=== PATIENT | male | born 1980 | race African-American/Black ===

== ENCOUNTER 2017-10-24 01:03 | Emergency (ER) | payer MEDICARE, SELFPAY ==
[2017-10-24 01:04] VITALS: BP 153/118; PULSE 83; RESP 19; TEMP 37.2; BMI 44.1
--- NOTE | 2017-10-24 01:17 | ED.DCSUM_ITS ---
- ER Visit Summary Date of Service: 10/24/17 Chief Complaint: [] Left knee pain History of Present Illness: The patient is a 37 M [] complaining of left knee pain after walking up several steps at [employer]. Reports on the last step he felt his knee darek slightly resulting in some discomfort. Denies any significant injury or fall. Reports mild relief with Aleve. No other complaints at this time. Physical Examination: [] Mild discomfort to the left knee with range of motion testing. No swelling, deformity, warmth. Remainder of exam is unremarkable. Test Results: [] None. Emergency Department Course and Treatment: [] I did not feel the patient warranted any diagnostic imaging or testing at this time. He was provided an Wenceslao bandage to the left knee and naproxen orally in the emergency department for analgesia. He was provided a prescription for naproxen with instructions to follow-up with his primary care physician. Treatment Plan: [] Discharge to follow-up with PCP. Prescription for naproxen provided. Disposition: [] Discharge, stable. Impression: [] Left knee sprain This note was generated with [employer] dictation software. It may contain incorrect words, spelling, and punctuation that were not noted in review of the chart prior to signing ED Disposition - Plan for ED Patient: Chief Complaint: Lower Extremity Injury Referrals: Pawel Banda MD [Primary Care Provider] -
--- NOTE | 2017-10-24 01:17 | ED.DEP ---
ED Disposition - Plan for ED Patient: Disposition: Home or Assisted Living Chief Complaint: Lower Extremity Injury Instructions: ED Sprain Knee Prescriptions: Naproxen [Naprosyn] 500 mg PO BID PRN PRN #20 tab PRN Reason: Pain Referrals: Pawel Banda MD [Primary Care Provider] -
[2017-10-24] MEDS: Naproxen 500 MG Tablet PO (01:31)
[2017-10-24 01:32] VITALS: BP 117/82; PULSE 101; PULSE 90; RESP 16; O2SAT 100
--- NOTE | 2017-10-24 01:43 | ED.RN ---
patient refused bernardo wrap at this time
== END 2017-10-24 01:35 | disposition home or self-care (01) ==
LOC: ED 01:28
PROVIDERS: Emergency Provider Emergency Medicine; Family Provider Internal Medicine; PCP Internal Medicine
DX: S83.92XA Sprain of unspecified site of left knee, initial encounter (principal); E66.9 Obesity, unspecified; X58.XXXA Exposure to other specified factors, initial encounter; Y93.01 Activity, walking, marching and hiking; Y92.22 Religious institution as the place of occurrence of the external cause; Y99.8 Other external cause status
CPT/HCPCS: 99283

== ENCOUNTER → 2017-11-01 07:01 | Outpatient (CLI) | payer MEDICARE, SELFPAY ==
--- NOTE | 2017-11-01 07:07 | CT_ITS ---
STUDY: CT ABDOMEN AND PELVIS WITH AND WITHOUT CONTRAST REASON FOR EXAM: Male, 37 years old. Gross hematuria for few months. History of renal failure and hypertension. RADIATION DOSAGE (If Supplied By Facility): CTDIvol = ( 20.55 ) mGy, DLP = ( 3766.71 ) mGycm TECHNIQUE: Transaxial images were obtained from the dome of the diaphragm to the symphysis pubis without oral contrast. 75CC ml of Isovue 300 contrast was administered. Sagittal and coronal images were reconstructed. Individualized dose optimization techniques were used for this CT. COMPARISON: 03/06/2017. FINDINGS: The visualized portions of lung bases demonstrate again pleural-based nodular density in the left lung base measuring about 8 mm unchanged since prior exam. The visualized portions of the heart are within normal limits. The examination is limited due to artifacts. No focal lesion is identified in the liver. Normal gallbladder and extrahepatic biliary system. Normal spleen. Normal pancreas. Normal bilateral adrenal glands. Significant motion artifacts are seen indicating images of the upper abdomen and kidneys. There again is a cortical cyst in the right kidney unchanged since prior exam. Smaller cysts are also seen. There are some small low-density lesion/cyst in the left kidney unchanged since prior exam poorly visualized on this examination due to artifacts. Both kidneys are somewhat atrophic. There is no evidence of hydronephrosis. Normal visualized stomach. The small bowel loops are normal in caliber. There is fecal retention. The appendix is visualized and appears normal. Normal abdominal aorta. Normal inferior vena cava. Again are few retroperitoneal nodes unchanged since the prior examination. The urinary bladder is not well-distended and suboptimally evaluated. There are calcifications of the vas deferens. Varicose veins in the subcutaneous fat of the anterior abdominal wall are again seen. The bony structures are essentially unchanged since prior exam. Expansile lytic lesion in the spinous processes of L4 is again seen. There again are erosive changes of the sacroiliac joints bilaterally increased density of the ileum bilaterally. There again is extensive calcification and pedunculated bony mass arising from the right pubic bone extending to the adjacent soft tissues and into the right groin region increased in size since previous examination measuring now about 12 x 12 x 7 cm. There is levoscoliosis of the lumbar spine. CT/CT Abd/Pelvis W/WO Contrast IMPRESSION: Limited examination due to artifacts and motion. Atrophic kidneys with multiple low-density lesions as cysts unchanged as prior examination. Suboptimal distention of the bladder. No demonstrated acute process. 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 Low-grade malignancy is less likely due to long-standing of the lesion but cannot be entirely excluded. Electronically Signed: Sunday Paulino MD at 10:45 EST Tel , Service support ,
== END ==
PROVIDERS: Family Provider Internal Medicine; PCP Internal Medicine; Visit Provider Urology
DX: R31.0 Gross hematuria (principal)
CPT/HCPCS: 74178; Q9967; A4216

== ENCOUNTER 2018-01-08 21:00 | Emergency (ER) | payer MEDICARE, MEDICAID, SELFPAY ==
[2018-01-08 21:01] VITALS: BP 139/95; PULSE 103; RESP 18; TEMP 37.5; O2SAT 95; BMI 43.2
--- NOTE | 2018-01-08 22:10 | CT_ITS ---
STUDY: CT BRAIN WITHOUT CONTRAST REASON FOR EXAM: Male, 37 years old. Headache RADIATION DOSAGE (If Supplied By Facility): CTDIvol = ( 44.99 ) mGy, DLP = ( 846.73 ) mGycm TECHNIQUE: Transaxial CT imaging of the brain was performed without administration of intravenous contrast material. Individualized dose optimization techniques were used for this CT. COMPARISON: April 02, 2016 FINDINGS: Normal soft tissue structures. Normal calvarium. Mild nonspecific cortical atrophy for stated age. Normal white matter tracts of the cerebral hemispheres. Normal basal ganglia and thalami. Normal brainstem. Normal cerebellum. Expansile appearance to sella turcica demonstrating low attenuation consistent with empty sella deformity There is no intracranial hemorrhage. There are no findings of an acute ischemic infarction. There appears to be mild orbital proptosis. Clinical correlation recommended There is polypoid mucosal thickening in the maxillary sinuses and moderate mucosal thickening within left sphenoid sinus CT/Brain/Head without Contrast IMPRESSION: Mild cortical atrophy for stated age. No evidence for obstructive hydrocephalus mass or acute bleed Empty sella deformity is observed of uncertain clinical significance although may be seen in association with pseudotumor cerebri. Clinical correlation is recommended this regard.. Electronically Signed: Harpreet Brian MD at 23:41 EDT , Service support ,
--- NOTE | 2018-01-08 22:10 | ED.VISSUMM ---
- ER Visit Summary Date of Service: 01/08/18 Chief Complaint: Multiple complaints History of Present Illness: The patient is a 37 M presents with multiple complaints. 2 days ago noting fluttering right side of his yarsani region, increasing sharpness 8 PM today. States had a fall 3 days ago but there is no head injuries. States the railing came down causing the fall. No injuries. Denies any aura, photophobia. Nausea without vomiting. No previous similar symptoms in the past. Yesterday started having mid abdominal pain cramping in nature. This is intermittent. No vomiting or diarrhea. No previous symptoms. also states today there is hematuria. No anticoagulation medications. Similar symptoms in the past. Denies tobacco history. He did follow-up with urology 2 months ago, states had a CAT scan along with blood test to rule out cancer. There is no cystoscopy. Complains of subjective fevers, chills, sweats. No upper respiratory symptoms. Patient history of end-stage dialysis past 11 years on Tuesdays, , Saturdays. Did have dialysis today. This is secondary to hypertension history. No history of diabetes. Patient states he makes urine every 2 days. States today was his blood coming out and not urinating. Physical Examination: General: Alert and oriented ?3, no acute distress HEENT: Normocephalic, atraumatic. Moist mucosa membranes. No papilledema Neck: supple, nontender. No meningismus Cardiovascular: Regular rate and rhythm, no murmurs Respiratory: Normal breath sounds, symmetric, no distress Abdomen: Soft, nontender, nondistended, negative Azevedo's McBurney's. No guarding or rebound. Extremities: Nontender, no edema, pulses intact ?4. Right upper extremity: Fistula right arm with no thrill. Left upper extremity: Fistula left forearm with positive thrill. Neuro: no focal neurological deficits. Test Results: WBC 6.2. Hemoglobin 9.9. Creatinine 8.67. Potassium 4.7. Lipase and LFT normal. CT head empty sella per radiology. CT abdomen pelvis no acute findings. Emergency Department Course and Treatment: Patient vitals stable, nonsurgical abdomen. No meningismus. Patient with throbbing headache on the right side with no visual changes. CT head obtained noted empty sella per radiology, this reported that could be findings from pseudotumor cerebri. Patient with no papilledema. Denies positional changes. Initially given Compazine and Benadryl, reevaluation symptoms improved. Discussed findings with patient, can follow-up with his PCP for further testing as an outpatient. As for abdominal pain, CT scan was negative. Abdominal labs normal. Chronic kidney disease with dialysis creatinine 8.67. Potassium is normal. Patient ready to be discharged with outpatient follow-up. Patient complain of blood in his urine. No urine was able to be obtained. He has similar findings with follow-up with urology. He will follow-up as an outpatient. Treatment Plan: [] Disposition: Discharge Impression: 1. Cephalgia 2. Nonspecific abdominal pain 3. End-stage renal disease on dialysis. 4. Hematuria This note was generated with [employer] dictation software. It may contain incorrect words, spelling, and punctuation that were not noted in review of the chart prior to signing ED Disposition - Plan for ED Patient: Disposition: Home or Assisted Living Chief Complaint: Complaint Diagnosis: Cephalgia, Nonspecific abdominal pain, End stage renal disease due to hypertension, Hematuria Instructions: ED Cephalgia Unspecified, ED Hematuria Referrals: Pawel Banda MD [Primary Care Provider] - 3-5 Days Gio Trevino MD [STAFF PHYSICIAN] - 3-5 Days Additional Instructions: Empty sella on CT head. Follow-up with your doctor for reevaluation further testing as needed. Hematuria. Call urology for follow-up reevaluation.
--- NOTE | 2018-01-08 22:15 | ED.DCSUM_ITS ---
- ER Visit Summary Date of Service: 01/08/18 Chief Complaint: Multiple complaints History of Present Illness: The patient is a 37 M presents with multiple complaints. 2 days ago noting fluttering right side of his rastafari region, increasing sharpness 8 PM today. States had a fall 3 days ago but there is no head injuries. States the railing came down causing the fall. No injuries. Denies any aura, photophobia. Nausea without vomiting. No previous similar symptoms in the past. Yesterday started having mid abdominal pain cramping in nature. This is intermittent. No vomiting or diarrhea. No previous symptoms. also states today there is hematuria. No anticoagulation medications. Similar symptoms in the past. Denies tobacco history. He did follow-up with urology 2 months ago, states had a CAT scan along with blood test to rule out cancer. There is no cystoscopy. Complains of subjective fevers, chills, sweats. No upper respiratory symptoms. Patient history of end-stage dialysis past 11 years on Tuesdays, , Saturdays. Did have dialysis today. This is secondary to hypertension history. No history of diabetes. Patient states he makes urine every 2 days. States today was his blood coming out and not urinating. Physical Examination: General: Alert and oriented ?3, no acute distress HEENT: Normocephalic, atraumatic. Moist mucosa membranes. No papilledema Neck: supple, nontender. No meningismus Cardiovascular: Regular rate and rhythm, no murmurs Respiratory: Normal breath sounds, symmetric, no distress Abdomen: Soft, nontender, nondistended, negative Azevedo's McBurney's. No guarding or rebound. Extremities: Nontender, no edema, pulses intact ?4. Right upper extremity: Fistula right arm with no thrill. Left upper extremity: Fistula left forearm with positive thrill. Neuro: no focal neurological deficits. Test Results: WBC 6.2. Hemoglobin 9.9. Creatinine 8.67. Potassium 4.7. Lipase and LFT normal. CT head empty sella per radiology. CT abdomen pelvis no acute findings. Emergency Department Course and Treatment: Patient vitals stable, nonsurgical abdomen. No meningismus. Patient with throbbing headache on the right side with no visual changes. CT head obtained noted empty sella per radiology, this reported that could be findings from pseudotumor cerebri. Patient with no papilledema. Denies positional changes. Initially given Compazine and Benadryl , reevaluation symptoms improved. Discussed findings with patient, can follow- up with his PCP for further testing as an outpatient. As for abdominal pain, CT scan was negative. Abdominal labs normal. Chronic kidney disease with dialysis creatinine 8.67. Potassium is normal. Patient ready to be discharged with outpatient follow-up. Patient complain of blood in his urine. No urine was able to be obtained. He has similar findings with follow-up with urology. He will follow-up as an outpatient. Treatment Plan: [] Disposition: Discharge Impression: 1. Cephalgia 2. Nonspecific abdominal pain 3. End-stage renal disease on dialysis. 4. Hematuria This note was generated with [employer] dictation software. It may contain incorrect words, spelling, and punctuation that were not noted in review of the chart prior to signing ED Disposition - Plan for ED Patient: Disposition: Home or Assisted Living Chief Complaint: Complaint Diagnosis: Cephalgia, Nonspecific abdominal pain, End stage renal disease due to hypertension, Hematuria Instructions: ED Cephalgia Unspecified, ED Hematuria Referrals: Pawel Banda MD [Primary Care Provider] - 3-5 Days Gio Trevino MD [STAFF PHYSICIAN] - 3-5 Days Additional Instructions: Empty sella on CT head. Follow-up with your doctor for reevaluation further testing as needed. Hematuria. Call urology for follow-up reevaluation.
[2018-01-08] MEDS: proCHLORPERazine 10 MG/2 ML Vial IV (22:31)
[2018-01-08] MEDS: DiphenhydrAMINE 50 MG/ML Syringe 25 MG IV (22:31)
--- NOTE | 2018-01-08 22:45 | CT_ITS ---
STUDY: CT ABDOMEN AND PELVIS WITHOUT CONTRAST REASON FOR EXAM: Male, 37 years old. Abdominal pain and hematuria. RADIATION DOSAGE (If Supplied By Facility): CTDIvol = ( 24.17 ) mGy, DLP = ( 1662.07 ) mGycm TECHNIQUE: Transaxial images were obtained from the dome of the diaphragm to the symphysis pubis without oral contrast, and without intravenous contrast. Sagittal and coronal images were reconstructed. Individualized dose optimization techniques were used for this CT. COMPARISON: November 01, 2017 FINDINGS: Minor atelectasis at the left base.. The visualized portions of the heart are within normal limits. Normal liver. Normal gallbladder and extrahepatic biliary system. Normal spleen. Normal pancreas. Normal bilateral adrenal glands. Kidneys are small. There is no evidence for hydronephrosis or ureteral calculus. There are multiple small cysts Normal visualized stomach. Normal small intestine. Normal colon. The appendix is visualized and appears normal. Normal abdominal aorta. Normal inferior vena cava. Normal retroperitoneum. Incompletely distended bladder which cannot be well evaluated.. There are multiple venous collaterals within the subcutaneous fat of the anterior abdominal and pelvic wall There is a very large mass demonstrating extensive calcification which appears to be involving the right pubic bone extending into the anterior pelvic cavity in the prevesical space displacing the bladder posteriorly and extending inferiorly into the muscles of the medial right thigh Lumbar spine demonstrates mild spondylosis. There are lytic destructive changes of the spinous process of L4 No significant change since prior exam CT/Abdomen/Pelvis without Cont IMPRESSION: Atrophic kidneys with multiple small bilateral cysts. No evidence for hydronephrosis or ureteral calculus No acute abnormalities with other findings as above Electronically Signed: Harpreet Brian MD at 23:51 EDT , Service support ,
[2018-01-08 23:18] LABS: Absolute Lymphocyte Count 1.14 X10^3/ul (0.83-4.51); Absolute Neutrophil Count 3.8 X10^3/uL (2.0-7.7); Basophil# 0.03 X10^3/uL; Basophil% 0.5 % (0-1); Eosinophils% 1.6 % (0-5); Hematocrit 33.7 % (40-54); Hemoglobin 9.9 g/dl (13.0-16.5); Lymphocyte # 1.14 X10^3/ul (4.0); Lymphocyte % 18.3 % (19-41); Mean Corp Hgb Conc 29.4 g/gl (32-36); Mean Corpuscular Hgb 26.8 pg (27.0-32.0); Mean Corpuscular Volume 91.1 fL (80-94); Mean Platelet Vol. 10.8 fl (6.2-12.0); Monocyte# 1.16 X10^3/uL; Monocyte% 18.6 % (0-10); Neutrophil % 60.8 % (47-70); Platelet Count 244 K/mm3 (150-450); RBC Distribution Width CV 19.7 % (11.6-14.6); RBC Distribution Width SD 61.4 fl (35.1-43.9); White Blood Count 6.2 K/mm3 (4.4-11.0)
[2018-01-08 23:19] LABS: POSITIVE COUNT NO; POSITIVE DIFFERENTIAL NO; POSITIVE MORPHOLOGY NO
--- NOTE | 2018-01-09 00:17 | NURSING ---
lab called with a critical creatinine of 8.67
[2018-01-09 00:18] LABS: ALB/GLOB Ratio 0.5 RATIO (0.9-2.4); AST(SGOT) 12 U/L (15-37); Alanine Aminotransfer ALT/SGPT 9 U/L (16-61); Albumin, Serum 2.9 g/dL (3.2-5.0); Alkaline Phosphatase 65 U/L (45-117); Anion Gap 9 (5-15); BUN 26 mg/dL (7-18); Calcium,Total 8.8 mg/dL (8.5-10.1); Chloride 98 mmol/L (98-107); Creatinine, Serum 8.67 mg/dL (0.70-1.30); EST Glomerular Filtration Rate 7 mL/min (>60); Est Glom Filt Rate - Afr Amer 9 mL/min (>60); Estimated Creatinine Clearance 12.28 ml/min; Globulin 5.7 g/dL (2.2-4.2); Glucose 77 mg/dL (74-106); Lipase 197 U/L (73-393); Potassium 4.7 mmol/L (3.5-5.1); Protein, Total 8.6 g/dL (6.4-8.2); Sodium Level 136 mmol/L (136-145)
[2018-01-09 01:09] VITALS: BP 147/84; PULSE 102; RESP 16
== END 2018-01-09 01:09 | disposition home or self-care (01) ==
PROVIDERS: Emergency Provider Emergency Medicine; Family Provider Internal Medicine; PCP Internal Medicine
DX: R51 Headache (principal); R10.9 Unspecified abdominal pain; R31.9 Hematuria, unspecified; I12.0 Hypertensive chronic kidney disease with stage 5 chronic kidney disease or end stage renal disease; N18.6 End stage renal disease; Z99.2 Dependence on renal dialysis; Z79.899 Other long term (current) drug therapy
CPT/HCPCS: 70450; 74176; 80053; 83690; 85025; 96361; 96374; 96375; 99284; J7040

== ENCOUNTER 2018-02-23 00:05 | Emergency (ER) | payer MEDICARE, MEDICAID, SELFPAY ==
[2018-02-23 00:07] VITALS: BP 139/89; PULSE 114; RESP 14; TEMP 37.1; O2SAT 94; BMI 42.5
--- NOTE | 2018-02-23 00:21 | RAD_ITS ---
STUDY: X-RAY - RIGHT SHOULDER REASON FOR EXAM: Male, 37 years old. Pain TECHNIQUE: 2 view(s) of the shoulder. COMPARISON: None. FINDINGS: There is moderate degenerative arthrosis of the glenohumeral articulation. Normal acromioclavicular joint. Normal acromion. Normal humeral head and visualized proximal humerus. The soft tissue structures are unremarkable. Normal visualized pulmonary apex. RAD/Shoulder min 2 Views IMPRESSION: Moderate glenohumeral osteoarthritis. No acute osseous abnormality is evident. Electronically Signed: Yogesh Dunn MD at 1:43 EDT Tel , Service support ,
--- NOTE | 2018-02-23 00:23 | ED.VISSUMM ---
- ER Visit Summary Date of Service: 02/23/18 Chief Complaint: [] Right elbow and shoulder pain History of Present Illness: The patient is a 37 M [] complaining of right elbow and shoulder pain without injury. Reports symptoms started 2 days ago. Denies increase physical activity. Patient is unsure of the etiology discomfort. He does have an old nonfunctional dialysis fistula in that extremity. His current active dialysis fistula is in the contralateral extremity. He denies significant swelling to the affected extremity. Denies numbness or tingling. No other complaints at this time. Physical Examination: [] Afebrile, vital signs stable. 37-year-old male no acute distress. Conversational. Mild tenderness over the right trapezius and right deltoid without gross deformity or swelling. There is mild discomfort to the lateral epicondyles of the right elbow without swelling, rash, warmth. Neurovascular intact distally. 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 Test Results: [] X-rays right shoulder: Negative per my interpretation. X-rays right elbow: Negative per my interpretation. Emergency Department Course and Treatment: [] Patient given oxycodone for analgesia. X-rays are negative. Patient encouraged to ice the affected area and follow-up with his primary care physician. Treatment Plan: [] Follow-up with PCP. Tylenol for pain. Ice. Disposition: [] Discharge, stable. Impression: [] Right shoulder sprain Right elbow sprain This note was generated with [employer] dictation software. It may contain incorrect words, spelling, and punctuation that were not noted in review of the chart prior to signing ED Disposition - Plan for ED Patient: Chief Complaint: Upper Extremity Injury Referrals: Pawel Banda MD [Primary Care Provider] -
[2018-02-23] MEDS: oxyCODONE 5 MG Tablet 10 MG PO (00:25)
--- NOTE | 2018-02-23 00:30 | RAD_ITS ---
XR Elbow Min 3 Views INDICATION: PAIN COMPARISON: None TECHNIQUE: 3 views of the right elbow FINDINGS: Soft tissue swelling, calcifications and clips are seen at the anterior upper arm and antecubital fossa. The osseous structures of the elbow are intact and well aligned. The anterior fat-pad is nondisplaced. RAD/Elbow min 3 Views IMPRESSION: The elbow is intact and well aligned. Soft tissue swelling, calcifications and surgical clips anteriorly. at 0109 Reported and signed by: Reyna Goldstein MD Electronically Signed: Reyna Goldstein MD at 1:07 EDT Tel , Service support ,
--- NOTE | 2018-02-23 00:57 | ED.DEP ---
ED Disposition - Plan for ED Patient: Disposition: Home or Assisted Living Chief Complaint: Upper Extremity Injury Instructions: ED Sprain Shoulder, ED Sprain Elbow Referrals: Pwael Banda MD [Primary Care Provider] -
[2018-02-23 01:01] VITALS: BP 139/89; PULSE 90; RESP 18; O2SAT 96
== END 2018-02-23 01:02 | disposition home or self-care (01) ==
PROVIDERS: Emergency Provider Emergency Medicine; Family Provider Internal Medicine; PCP Internal Medicine
DX: S53.401A Unspecified sprain of right elbow, initial encounter (principal); S43.401A Unspecified sprain of right shoulder joint, initial encounter; E66.9 Obesity, unspecified; I12.0 Hypertensive chronic kidney disease with stage 5 chronic kidney disease or end stage renal disease; N18.6 End stage renal disease; Z99.2 Dependence on renal dialysis; Z79.899 Other long term (current) drug therapy; X58.XXXA Exposure to other specified factors, initial encounter; Y93.9 Activity, unspecified; Y92.9 Unspecified place or not applicable; Y99.9 Unspecified external cause status
CPT/HCPCS: 73030; 73080; 99283

== ENCOUNTER 2018-05-15 01:14 | Inpatient (IN) | payer MEDICARE, MEDICAID, SELFPAY ==
[2018-05-15] VITALS (13 sets, daily range): BP systolic 90–104; BP diastolic 40–71; PULSE 96–116; RESP 16–20; TEMP 36.6–36.9; O2SAT 96–100; BMI 40.2; BMI 39.7; BMI 39.6
--- NOTE | 2018-05-15 01:35 | ED.VIS.GEN ---
History of Present Illness Chief Complaint: Dizziness Informant: Patient Onset: Yesterday - night Context: Sudden Onset - while at rest last night Timing: Continuous Quality: heaviness substernal Location: chest. no radiation. Current Severity: Moderate Maximum Severity: Severe Worsened by: exertion, moving arms up. nonpleuritic. Relieved by: rest/remaining still Associated Symptoms: sob that is worse w/ exertion also. fluttering/racing HB. lightheadedness. Narrative: Patient does not recall having these symptoms before, but did have a pulmonary embolus a few years ago and he was concerned about recurrence. He does not recall if this discomfort is similar or not. He has no known heart or lung problems otherwise. He is on dialysis for end-stage renal disease due to uncontrolled hypertension, but he is on medications/treatment now. He gets dialysis 3 times weekly, on Tuesdays, , Saturdays, his last treatment was today around 10-11 hours ago, and he remembers specifically getting worse just after getting out of the dialysis chair noticing that he was feeling very generally weak and easier to get symptoms with light exertion than before dialysis. Discomfort has been continuous since last night and unrelenting, no worse with lying supine, with regards to his chest discomfort and dyspnea. When he would exert himself at times earlier today and his symptoms would get worse, that is when he would feel his heart racing and fluttering, it would improve with rest. No near syncope or syncope. With regards to his end-stage renal disease, he is an uric. He also states he has been having some issues with his left upper extremity fistula and is scheduled for a fistulogram in the near future. He is on no 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s except for the heparin that he gets during dialysis only. - Past Medical History (1) Anemia of chronic disorder Status: Chronic (2) ESRD (end stage renal disease) Status: Chronic Comment: Due to hypertension, On hemodialysis, TTS, followed by Dr. Goncalves (3) History of bacterial endocarditis Status: Chronic (4) 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 due to renal insufficiency Status: Chronic (5) Hypertension Status: Chronic (6) Sleep apnea Status: Chronic Past Medical History - Allergies and Home Meds Allergies/Adverse Reactions: Allergies No Known Allergies Allergy (Verified 05/15/18 01:18) Primary Care Physician: Pawel Banda MD [Primary Care Provider] - Surgical History: herniorrhaphy Smoking Status: Never smoker - Family History Maternal Family History: Reports: No pertinent history Review of Systems All systems negative except as indicated General: Reports: Malaise, - - Lightheadedness without near syncope or syncope Cardiovascular: Reports: Chest pain, Palpitations, Heart racing Respiratory: Reports: Dyspnea on exertion. Denies: Cough, Orthopnea, Paroxysmal nocturnal dyspnea Gastrointestinal: Denies: Abdominal pain, Nausea, Vomiting, Diarrhea, Melena, Hematochezia Genitourinary: Reports: - - Anuric Musculoskeletal: Denies: Neck pain, Back pain, Swelling, Extremity Pain Skin: Denies: Rash, Wounds Neurological: Denies: Headache, Weakness, Parasthesia, Numbness Physical Exam Vital Signs/Narrative: Vital Signs Temp Pulse Resp BP Pulse Ox 05/15/18 01:15 98.2 F 103 H 16 104/66 100 Inital Vital Signs reviewed: Yes General: Well nourished, Well developed, Obese Head: Normocephalic, Atraumatic Eyes: Perrl, EOMI ENT: Moist mucous membranes, No rhinorrhea Neck: Supple, Nontender, No lymphadenopathy, No JVD Cardiovascular: Regular rate, Regular rhythm, No murmurs, Normal S1, Normal S2 Respiratory: No distress, CTA bilaterally, Chest nontender Abdomen: Soft, Nontender, Nondistended, Normal bowel sounds Back: Nontender, Normal Inspection Extremities: Nontender - Including negative Homans bilaterally, No edema Skin: Normal color, No rash Neurological: Alert, Oriented x3, Cranial nerves II-XII grossly intact, Normal Strength, Normal Sensation, Normal Gait Psychological: Normal affect Diagnostic/Tx/Re-eval Impressions Chest X-Ray 05/15/18 01:31 IMPRESSION: No acute cardiopulmonary disease. Electronically Signed: Kannan Greenberg, at 2:25 EDT Tel , Service support , Chest CTA 05/15/18 02:25 IMPRESSION: Evaluation is limited for pulmonary embolism due to bolus timing as well as patient's body habitus and upper extremities being down during the examination. There are multiple areas which would be concerning for pulmonary emboli versus artifact. Within the left lower lobe there is a segmental and right lower lobe subsegmental pulmonary artery which is higher in concern for a pulmonary embolism. Recommend correlation with either nuclear medicine ventilation perfusion study or repeat CT angiogram with improved bolus timing. There is no pulmonary embolism identified within the main pulmonary artery or the right or left main pulmonary arteries. Severe Central venous stenosis with innumerable venous collaterals. This likely is the reason for bolus timing. A lower extremity approach injection may be more beneficial. Recommend nonemergent thyroid ultrasound. Right upper lobe new pulmonary nodule. Recommend 6 month follow-up CT scan for stability. Other findings as discussed above. N.B. : The above information has been verbally conveyed by Kannan Greenberg to Dr. Matos, Referring Physician, on 05/15/2018 03:51:38 (ET). Electronically Signed: Kannan Greenberg, at 3:50 EDT Tel , Service support , 05/15/18 01:31 Chest PA and Lateral [RAD] Stat 05/15/18 02:25 CTA Chest W/WO Contrast [CT] Stat Laboratory Results 05/15/18 05/15/18 05/15/18 Range/Units 01:53 01:53 01:53 WBC 6.3 (4.4-11.0) K/mm3 RBC 4.53 L (4.6-6.2) M/mm3 Hgb 12.5 L (13.0-16.5) g/dl Hct 39.5 L (40-54) % MCV 87.2 (80-94) fL MCH 27.6 (27.0-32.0) pg MCHC 31.6 L (32-36) g/gl RDW 17.3 H (11.6-14.6) % RDW Differential 55.2 H (35.1-43.9) fl Plt Count 229 (150-450) K/mm3 MPV 11.4 (6.2-12.0) fl Immature Gran % (Auto) 0.300 (0.0-0.9) % Neut % (Auto) 52.4 (47-70) % Lymph % (Auto) 24.3 (19-41) % Meagher % (Auto) 20.3 H (0-10) % Eos % (Auto) 2.1 (0-5) % Baso % (Auto) 0.6 (0-1) % Absolute Neuts (auto) 3.3 (2.0-7.7) X10^3/uL Absolute Lymphs (auto) 1.52 (0.83-4.51) X10^3/ul Total Counted Not Reportable D-Dimer Quant (PE/DVT) 1.15 H* (0.27-0.49) FEU/ug/m Sodium 133 L (136-145) mmol/L Potassium 4.6 (3.5-5.1) mmol/L Chloride 93 L (98-107) mmol/L Carbon Dioxide 34.0 H (21.0-32.0) mmol/L Anion Gap 6 (5-15) BUN 24 H (7-18) mg/dL Creatinine 8.01 H* (0.70-1.30) mg/dL Estim Creat Clear Calc 13.58 ml/min Est GFR (MDRD) Af Amer 10 L (>60) mL/min Est GFR (MDRD) Non-Af 8 L (>60) mL/min BUN/Creatinine Ratio 3.0 L (10-20) RATIO Glucose 89 (74-106) mg/dL Calcium 8.8 (8.5-10.1) mg/dL Troponin I < 0.015 (<0.045) ng/mL - Rhythm Strip Rhythm Strip: Sinus Tach Rate: 113 Ectopy: PVC(s) - EKG Initial EKG Interpretation: No Acute Injury Pattern, Junctional - Tachycardia suspected, - - Diffuse peaked T waves. QRS narrow with right axis. - Medical Decision Making Patient has a persistent resting tachycardia with clear lungs, normal chest x-ray, elevated d-dimer, and the CT angiography shows the above findings, not able to rule out the possibility of a segmental or subsegmental pulmonary embolus, the radiologist told me that there were several abnormal areas that may or may not be pulmonary emboli although there was no central pulmonary embolus and no other secondary findings such as a pulmonary infarct. He has a persistent resting tachycardia. The EKG does not show any obvious P waves, making it appear to be a junctional tachycardia. If he is having a primary dysrhythmia, that could explain his symptoms as well. He has had the symptoms for over 24 hours and his troponin is negative, there is no ST segment deviation on the EKG. This part is reassuring. His other laboratory abnormalities are a result of chronic renal disease, he is not hyperkalemic. Given all this, I think it is reasonable to admit him to telemetry for further evaluation, including a VQ scan, possible cardiac consultation, and possible consult to nephrology given the fact that his dialysis is not due for approximately 36 hours after we gave the contrast bolus. The recommendation is for dialysis within [address] Krishnan, who agrees w/ admission to telemetry and heparin gtt. ED Disposition - Plan for ED Patient: Disposition: Acute Care [facility] Chief Complaint: Dizziness Diagnosis: Junctional tachycardia, Chest pain, Dyspnea, ESRD (end stage renal disease)
[2018-05-15 02:02] LABS: Absolute Lymphocyte Count 1.52 X10^3/ul (0.83-4.51); Absolute Neutrophil Count 3.3 X10^3/uL (2.0-7.7); Basophil# 0.04 X10^3/uL; Basophil% 0.6 % (0-1); Eosinophil# 0.13 X10^3/uL; Eosinophils% 2.1 % (0-5); Hematocrit 39.5 % (40-54); Hemoglobin 12.5 g/dl (13.0-16.5); Lymphocyte # 1.52 X10^3/ul (4.0); Lymphocyte % 24.3 % (19-41); Mean Corp Hgb Conc 31.6 g/gl (32-36); Mean Corpuscular Hgb 27.6 pg (27.0-32.0); Mean Corpuscular Volume 87.2 fL (80-94); Mean Platelet Vol. 11.4 fl (6.2-12.0); Monocyte# 1.27 X10^3/uL; Monocyte% 20.3 % (0-10); Neutrophil # 3.28 X10^3/uL (2.7-7.7); Neutrophil % 52.4 % (47-70); POSITIVE COUNT NO; POSITIVE DIFFERENTIAL NO; POSITIVE MORPHOLOGY NO; Platelet Count 229 K/mm3 (150-450); RBC Distribution Width CV 17.3 % (11.6-14.6); RBC Distribution Width SD 55.2 fl (35.1-43.9); Red Blood Count 4.53 M/mm3 (4.6-6.2); White Blood Count 6.3 K/mm3 (4.4-11.0)
[2018-05-15 02:12] LABS: D-Dimer Quantitative (DVT/PE) 1.15 FEU/ug/m (0.27-0.49)
[2018-05-15 02:27] LABS: Anion Gap 6 (5-15); BUN 24 mg/dL (7-18); Calcium,Total 8.8 mg/dL (8.5-10.1); Chloride 93 mmol/L (98-107); Creatinine, Serum 8.01 mg/dL (0.70-1.30); EST Glomerular Filtration Rate 8 mL/min (>60); Est Glom Filt Rate - Afr Amer 10 mL/min (>60); Estimated Creatinine Clearance 13.58 ml/min; Glucose 89 mg/dL (74-106); Potassium 4.6 mmol/L (3.5-5.1); Sodium Level 133 mmol/L (136-145)
--- NOTE | 2018-05-15 02:34 | ED.RN ---
lab called with critical lab results. Creatinine level 8.01. Dr. Matos made aware. no new orders at this time
--- NOTE | 2018-05-15 03:53 | HP.PCM_ITS ---
Problem List (1) Pulmonary embolism Status: Suspected (2) Dyspnea Status: Acute (3) Chest pain Status: Acute Qualifiers: Chest pain type: unspecified Qualified Code(s): R07.9 - Chest pain, unspecified History of Present Illness Date of Admission: 05/15/18 Chief Complaint: Chest pain, shortness of breath, lightheadedness and weakness ? 3 days. The patient is a 38 year old M with a significant history of sleep apnea hypertension, end-stage renal disease (dialysis Tuesdays, and Saturdays), former smoker, previous blood clots in lungs, and previous blood clot in neck who presents with multifactorial symptoms of Chest pain, shortness of breath, lightheadedness, lethargy and weakness ?3 days. He describes chest pain as heaviness on his chest; and some burning.. Chest pain increases with minimal exertion a chest. CTA chest done at emergency department was a limited study because of a poor timing secondary to patient's anatomy. However the chest x-ray showed multiple areas concerning for pulmonary emboli versus artifact. Patient was empirically started on heparin drip from the emergency department. Past Medical History Past Medical History (Chronic Problems): Chronic Problems (Last Reviewed 05/15/18 @ 06:49 by Lg Krishnan MD) Chronic pelvic pain in male (Chronic) Pelvic mass (Chronic) Hematuria (Chronic) Anemia of chronic disorder (Chronic) History of bacterial endocarditis (Chronic) Hypertension (Chronic) ESRD (end stage renal disease) (Chronic) Due to hypertension, On hemodialysis, TTS, followed by Dr. Goncalves Morbidly obese (Chronic) Sleep apnea (Chronic) 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 due to renal insufficiency (Chronic) Medical History: Medical History (Last Reviewed 05/15/18 @ 06:49 by Lg Krishnan MD) History of blood clots Z86.718 fistula developed a clot and had to be surgically removed Hearing loss H91.90 in both ears Allergies No Known Allergies Allergy (Verified 05/15/18 01:18) Home Medications: Ambulatory Orders Medication Instructions Recorded cinacalcet 60 mg tablet 60 mg PO TUTHSA 10/10/17 sevelamer carbonate 800 mg tablet 800 mg PO TID 10/10/17 Carvedilol [Coreg (Beta Yossi)] 1 tab PO BID 01/08/18 Ferric Citrate [Auryxia] 3 tab PO TIDCM 05/15/18 Surgical History: herniorrhaphy, - - 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 Lives: Spouse/ Significant Other Smoking Status: Former smoker Alcohol: None - *Family History Maternal History Items: No pertinent history Review of Systems Constitutional: Reports: Weakness, Fatigue Eyes: Denies: Blurred vision, Pain HEENT: Reports: - - Lightheadedness. Denies: Dysphasia Cardiovascular: Reports: Chest Pressure, Palpitations Respiratory: Reports: Shortness of Breath. Denies: Cough, Shortness of breath at rest, Sputum production Gastrointestinal: Denies: Abdominal Pain, Nausea, Vomiting Genitourinary: Reports: Dysuria Musculoskeletal: Denies: Joint Pain, Joint Tenderness Skin: Denies: Rash, Wounds Neurological: Denies: Numbness, Tingling, Focal weakness Psychiatric: Denies: Anxiety, Depression, Homicidal Ideations, Suicidal Ideations Hematologic/ Lymphatic: Denies: Easy Bruising, Easy Bleeding VTE Information - Inpt Only VTE Present on Admission: No VTE Mechan Device Prophylaxis: None VTE Pharm Prophylaxis ordered?: No Reason prophylaxis not ordered:: Medical Contraindication - On treatment dose heparin for suspected PE. VTE Suspected: Suspected PE Patient Problems: Active and Suspected Problems (Last Reviewed 05/15/18 @ 06:49 by Lg Krishnan MD) Junctional tachycardia (Acute) Dyspnea (Acute) Pulmonary embolism (Suspected) Chest pain (Acute) - Physical Exam General: Alert, Oriented x3, Cooperative HEENT: Atraumatic, PERRLA, EOMI, Normocephalic Neck: Supple, No JVD, Negative Carotid Bruits Lungs: Clear to auscultation, Normal air movement, - - Tender chest Cardiovascular: Regular rate Abdomen: Bowel Sounds Present, Soft, Non Tender Extremities: - - Left forearm with dialysis device?positive bruit and thrill. Skin: No rashes, No breakdown Musculoskeletal: No Tenderness to Palpation of Joints or Extremities Neurological: Cranial nerves II-XII grossly intact Psych/Mental Status: Appropriate Vital Signs Temp Pulse Resp BP Pulse Ox 98.2 F 100 16 95/71 100 05/15/18 01:15 05/15/18 03:28 05/15/18 03:28 05/15/18 03:28 05/15/18 03:28 Oxygen Delivery Method Room Air Weight: 130.9 kg Body Mass Index (BMI) 40.2 Laboratory Tests Past 24 Hrs 05/15/18 05/15/18 05/15/18 01:53 01:53 01:53 WBC 6.3 RBC 4.53 L Hgb 12.5 L Hct 39.5 L MCV 87.2 MCH 27.6 MCHC 31.6 L RDW 17.3 H RDW Differential 55.2 H Plt Count 229 MPV 11.4 Immature Gran % (Auto) 0.300 Neut % (Auto) 52.4 Lymph % (Auto) 24.3 Hamblen % (Auto) 20.3 H Eos % (Auto) 2.1 Baso % (Auto) 0.6 Absolute Neuts (auto) 3.3 Absolute Lymphs (auto) 1.52 Total Counted Not Reportable D-Dimer Quant (PE/DVT) 1.15 H* Sodium 133 L Potassium 4.6 Chloride 93 L Carbon Dioxide 34.0 H Anion Gap 6 BUN 24 H Creatinine 8.01 H* Estim Creat Clear Calc 13.58 Est GFR (MDRD) Af Amer 10 L Est GFR (MDRD) Non-Af 8 L BUN/Creatinine Ratio 3.0 L Glucose 89 Calcium 8.8 Troponin I < 0.015 Assessment/Plan All Active Problems (Last Reviewed 05/15/18 @ 06:49 by Lg Krishnan MD) Junctional tachycardia (Acute) Dyspnea (Acute) Acute viral bronchitis (Acute) Chest pain, musculoskeletal (Acute) Chest pain (Acute) The patient is a 38 year old M with a significant history of hypertension, end- stage renal disease (dialysis Tuesdays, and Saturdays), former smoker , previous blood clots in lungs, and previous blood clot in neck who presents with multifactorial symptoms of Chest pain, shortness of breath, lightheadedness , lethargy; weakness and radiographic findings of a possible segmental and sub- segmental pulmonary embolism. Chest pain, dyspnea, weakness; shortness of breath and lightheadedness Differential diagnoses include PE, myocarditis, bacteremia in this dialysis patient; acute coronary syndrome, severe central venous stenosis found on CT; hypothyroidism EKG showed Q waves in V1 through V4. Heparin drip continued VQ scan ordered Serial troponin Aspirin 325mg?1 and 80 mg daily; Echocardiogram ordered Blood culture ?2 Percocet for pain Will consult cardiology Hypertension Coreg continued End-stage renal disease Patient receive a contrast and is not due for dialysis until about 36 hours after contrast. Nephrology consult Renal diet Sensipar continued Sevelamer continued Bilateral thyroid calcifications Ultrasound of thyroid ordered. Pulmonary nodule Patient to follow up longitudinally with CT. DVT prophylaxis Not indicated patient The patient on heparin drip. Code Visit Inpatient E&M: 55247 Init Hosp L3
[2018-05-15] MEDS: Morphine 4 MG/ML Syringe IV (04:07)
[2018-05-15 04:16] LABS: Partial Thromboplast Time 34.5 Seconds (24.1-36.2)
--- NOTE | 2018-05-15 04:20 | NURSING ---
Saqib humphreys rn aware that pt ok to come to the floor.
[2018-05-15] MEDS: HEPARIN/D5w 25,000 UNITS 25,000 UNITS/250 ML IV.SOLN. 17 UNITS IV (04:32)
[2018-05-15] MEDS: Heparin Injection (Vial) 5,000 UNIT/ML VIAL 10500 UNIT IV (05:00)
[2018-05-15] MEDS: oxyCODONE 5 MG Tablet PO ×3 (06:45→20:17)
[2018-05-15] MEDS: Aspirin 325 MG Tablet PO (06:45)
[2018-05-15] MEDS: 0.9% Normal Saline 1,000 ML 100 ML IV ×2 (08:19→21:47)
--- NOTE | 2018-05-15 10:15 | CASEMGMT ---
RN CM Assessment. See Link. DC Plan: home. Pt is presently on Heparin gtt. -Dialysis T S 0820 @ [facility]. Call to notify of pt admission. nephrology consult pending. -No dc needs identified @ this time. Tristen COXN RN ACM
--- NOTE | 2018-05-15 11:44 | NURSING ---
[facility] late d/t pt being off unit in Nuc Med for stress test, ECHO, & Lung scan.
[2018-05-15 12:39] LABS: Partial Thromboplast Time 33.8 Seconds (24.1-36.2)
[2018-05-15] MEDS: Carvedilol 3.125 MG TABLET PO ×2 (12:50→21:48)
[2018-05-15] MEDS: Heparin Injection (Vial) 5,000 UNIT/ML VIAL IV (12:53)
--- NOTE | 2018-05-15 13:59 | PCM.CONS.R ---
Problem List (1) ESRD (end stage renal disease) Status: Chronic Comment: Due to hypertension, On hemodialysis, TTS, followed by Dr. Goncalves Consultation - Renal PCP/ Referring MD: Requesting physician: [] Primary care physician: Pawel Banda MD - History of Present Illness History of Present Illness: The patient is a 38 year old M past medical history of end-stage renal disease on Friday and Friday hemodialysis schedule ., Obstructive sleep apnea , history of PE . Patient presented with chest pain , shortness of breath , and lightheadedness for the last 3 days . Chest x-ray so possible bilateral pulmonary emboli. Blood pressure was found to be low to at 90/40 . Patient was admitted for PE treatment . Currently on heparin drip . VQ scan is negative for PE . Echocardiogram showed ejection fraction 70% along with severe concentric LVH . Had last hemodialysis session yesterday with 3-4 L ultrafiltration as per the patient . Patient still feeling shortness of breath with exertion along with chest pain and lightheadedness . Currently on IV fluid normal saline at 100 cc/h . Review of system : 12 system review is negative except what mentioned in the HPI [] - Allergies Allergies: Allergies No Known Allergies Allergy (Verified 05/15/18 01:18) - Current Medications Current Medications: Current Medications Acetaminophen (Tylenol) 650 mg PO Q6H PRN PRN PRN Reason: Mild Pain (scale 0-3)/T>100.7 Aspirin (Aspirin, Baby) 81 mg PO DAILY@0800 [facility] Carvedilol (Coreg) 3.125 mg PO BID [facility] Last Admin: 05/15/18 12:50 Dose: 3.125 mg Cinacalcet (Sensipar) 60 mg PO TUTHSA [facility]ous [facility] Heparin Sodium (Porcine) (Heparin Na) 0 unit IV UD PRN PRN Reason: Protocol Last Admin: 05/15/18 12:53 Dose: 3,000 unit Heparin Sodium/Dextrose () 25,000 units in 250 mls @ 17 mls/hr IV .[id number] [facility]; As Directed PRN Reason: Protocol Last Admin: 05/15/18 04:32 Dose: 17 mls/hr Sodium Chloride () 1,000 mls @ 100 mls/hr IV .Q10H [facility] Last Admin: 05/15/18 08:19 Dose: 100 mls/hr Magnesium Hydroxide (Milk Of Magnesia) 30 ml PO DAILY PRN PRN Reason: Constipation Ondansetron HCl (Zofran) 4 mg IV Q8H PRN PRN PRN Reason: Nausea Oxycodone HCl (Oxyir) 5 mg PO Q4H PRN PRN PRN Reason: Moderate Pain (pain scale 4-5) Last Admin: 05/15/18 12:57 Dose: 5 mg Sevelamer Carbonate (Renvela) 800 mg PO TIDCM MACY Sodium Chloride () 5 - 30 ml IV UD PRN PRN Reason: SALINE FLUSH - Past Medical History Past Medical History (Chronic Problems): Chronic Problems (Last Reviewed 05/15/18 @ 06:49 by Lg Krishnan MD) Chronic pelvic pain in male (Chronic) Pelvic mass (Chronic) Hematuria (Chronic) Anemia of chronic disorder (Chronic) History of bacterial endocarditis (Chronic) Hypertension (Chronic) ESRD (end stage renal disease) (Chronic) Due to hypertension, On hemodialysis, TTS, followed by Dr. 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 - Social History Smoking Status: Former smoker Alcohol: None - Family History Maternal History Items: No pertinent history Patient Problems: Active and Suspected Problems (Last Reviewed 05/15/18 @ 06:49 by Lg Krishnan MD) Junctional tachycardia (Acute) Dyspnea (Acute) Pulmonary embolism (Suspected) Chest pain (Acute) - Physical Exam General: Alert, Oriented x3 HEENT: Atraumatic Oral: Moist Mucosa Neck: Supple, No JVD Lungs: Clear to auscultation, Normal air movement, No rhonchi, No wheeze Cardiovascular: Tachycardic, - Abdomen: Bowel Sounds Present, Soft, Non Tender Extremities: No clubbing, No cyanosis, No edema Lymphatic: No Cervical, Supraclavicular, or Inguinal Adenopathy Neurological: Cranial nerves II-XII grossly intact, Neuro grossly intact Vital Signs Temp Pulse Resp BP Pulse Ox 98.0 F 114 H 20 H 91/42 L 96 05/15/18 11:30 05/15/18 11:30 05/15/18 11:30 05/15/18 11:30 05/15/18 11:30 Oxygen Flow Rate (L/min) 2 Oxygen Delivery Method Room Air Weight: 129.1 kg Body Mass Index (BMI) 39.6 Intake and Output for Last 24 Hours 05/13/18 05/14/18 05/15/18 23:59 23:59 23:59 Intake Total 427 / 427 Balance 427 / 427 Laboratory Tests Past 24 Hrs 05/15/18 05/15/18 05/15/18 06:35 06:35 12:10 APTT Troponin I < 0.015 < 0.015 TSH 3.70 05/15/18 12:10 APTT 33.8 Troponin I TSH Assessment/Plan All Active Problems (Last Reviewed 05/15/18 @ 06:49 by Lg Krishnan MD) Junctional tachycardia (Acute) Dyspnea (Acute) Acute viral bronchitis (Acute) Chest pain, musculoskeletal (Acute) Chest pain (Acute) 1-end-stage renal disease on hemodialysis. Patient on Friday and Friday hemodialysis schedule. Patient goes [facility]. 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 Last hemodialysis session May 14 with 3-4 liters of ultrafiltration. I will arrange for hemodialysis tomorrow as per the chronic order. Will limit ultrafiltration 1 L tomorrow given the low blood pressure. 2-anemia. Hemoglobin 12.5. No need for ANABELLA from nephrology standpoint. 3-bone mineral disease. Please continue the same dose of sevelamer and Sensipar. We will check phosphorus level and PTH and outpatient hemodialysis unit. 4-hypotension: Echocardiogram showed severe concentric LVH with normal EF. Hypotension may be due to decreased preload due to severe LVH and tachycardia. Patient might benefit from lowering heart rate. Cardiology service is following. Limit ultrafiltration to 1 L tomorrow 5-chest pain and shortness of breath along with tachycardia. VQ scan is negative for PE. Still on heparin drip. I will defer the management to the primary service and cardiology service. Renal team will continue to follow. Plan of care was discussed with Dr. Harris Griffin MD [phone]
[2018-05-15] MEDS: Ferrous Sulfate 325 MG Tablet PO (16:32)
[2018-05-15] MEDS: SEVELAMER CARBONATE 800 MG TABLET PO (16:33)
--- NOTE | 2018-05-15 18:19 | PCM.CONS.C ---
Reason for Consult Date of Consultation: 05/15/18 Reason for Consultation: Chest pain. History of Present Illness: The patient is a 38 year old M with a significant history of sleep apnea hypertension, end-stage renal disease (dialysis Tuesdays, and Saturdays), former smoker, previous blood clots in lungs, and previous blood clot in neck who presents with multifactorial symptoms of Chest pain, shortness of breath, lightheadedness, lethargy and weakness ?3 days. He describes chest pain as heaviness on his chest; and some burning.. Chest pain increases with minimal exertion a chest. CTA chest done at emergency department was a limited study because of a poor timing secondary to patient's anatomy. However the chest x-ray showed multiple areas concerning for pulmonary emboli versus artifact. Patient was empirically started on heparin drip from the emergency department. Cardiology was asked to see him because of the chest discomfort. While on the telemetry unit he did not appear to have any chest discomfort. An EKG that was done demonstrated a junctional rhythm versus sinus tachycardia with a very prolonged first-degree AV block. Past Medical History Allergies/Adverse Reactions: Allergies No Known Allergies Allergy (Verified 05/15/18 01:18) Home Medications: Ambulatory Orders Medication Instructions Recorded cinacalcet 60 mg tablet 60 mg PO TUTHSA 10/10/17 sevelamer carbonate 800 mg tablet 800 mg PO TID 10/10/17 Carvedilol [Coreg (Beta Yossi)] 1 tab PO BID 01/08/18 Ferric Citrate [Auryxia] 3 tab PO TIDCM 05/15/18 Past Medical History (Chronic Problems): Chronic Problems (Last Reviewed 05/15/18 @ 06:49 by Lg Krishnan MD) Chronic pelvic pain in male (Chronic) Pelvic mass (Chronic) Hematuria (Chronic) Anemia of chronic disorder (Chronic) History of bacterial endocarditis (Chronic) Hypertension (Chronic) ESRD (end stage renal disease) (Chronic) Due to hypertension, On hemodialysis, TTS, followed by Dr. 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 - *Family History Maternal History Items: No pertinent history Lives: Spouse/ Significant Other Smoking Status: Former smoker Alcohol: None Review of Systems - Review of Systems General: Denies: Fever, Night Sweats, Fatigue Cardiovascular: Denies: Chest Discomfort, Shortness of Breath, Orthopnea, PND, Peripheral Edema, Palpitations, Lightheadedness, Dizziness, Near Syncope, Syncope Respiratory: Denies: Cough, Sputum Production, Hemoptysis Gastrointestinal: Denies: Hematemesis, Hematochezia, Melena Genitourinary: Denies: Dysuria, Hematuria Skin: Denies: Rash Subjectve: Young man in no apparent distress Objective: Vital Signs Temp Pulse Resp BP Pulse Ox 97.8 F 96 20 H 97/40 L 100 05/15/18 16:30 05/15/18 16:30 05/15/18 16:30 05/15/18 16:30 05/15/18 16:30 Oxygen Flow Rate (L/min) 2 Oxygen Delivery Method Room Air Weight: 284 lb 9.868 oz Body Mass Index (BMI) 39.6 Intake and Output for Last 24 Hours 05/13/18 05/14/18 05/15/18 23:59 23:59 23:59 Intake Total 1442 / 1442 Balance 1442 / 1442 General: Awake, Alert, Oriented x 3 HEENT: PERRL, EOMI, Sclera Non Icteric Neck: Supple, Good ROM, No Lymph Node Enlargement Lungs: Clear to auscultation Cardiovascular: Regular Rhythm, Normal S1, Normal S2, No Murmurs, No Rubs, No Gallops Vascular: No Carotid Bruits, Normal Femoral Pulses, Normal Radial Pulses, Normal Dorsalis Pedal Pulse, Normal Posterior Tibial Pulses Abdomen: Bowel Sounds Present, Soft, Non Tender, No HSM, No Organomegaly Extremities: No Cyanosis, No Clubbing, No edema Neurological: No Focal Motor or Sensory Deficit 05/15/18 06:35: Troponin I < 0.015 05/15/18 12:10: Troponin I < 0.015 05/15/18 12:10: APTT 33.8 Rhythm: EKG: Junctional rhythm with a rate of 108 bpm. ECHO: Preserved left ventricular systolic function estimated ejection fraction of 60-65%. Assessment/Plan 1. Chest pain. Patient presented with chest pain which is somewhat atypical with no EKG changes. My recommendation was for him to undergo a stress test in the form of a dobutamine echocardiogram. This was performed and demonstrated no wall motion abnormalities at an appropriate heart rate. Based on the above findings my recommendation is that it does not appear that this appears to be coronary in origin and he should be treated for noncoronary etiologies. At this time I would not recommend making any different changes to his medications. Thank you for allowing me to participate in the care of your patient. Please don't hesitate to call if any issues arise
--- NOTE | 2018-05-15 23:27 | NURSING ---
Pt. had emesis x 1 at this time, stated his dinner did not agree with him. Pt. was offered Zofran and pt. refused, but asked for john emma and Anitra Doone Cookies. Gave pt. what he requested.
[2018-05-16] VITALS (7 sets, daily range): BP systolic 104–123; BP diastolic 67–71; PULSE 60–113; RESP 14–18; TEMP 36.6–36.7; O2SAT 93–100
--- NOTE | 2018-05-16 06:48 | NURSING ---
Pt. refusing to have blood draw for BMP this morning. Explained need for test and pt. still refusing.
[2018-05-16] MEDS: Heparin Injection (Vial) 5,000 UNIT/ML VIAL 5000 UNIT SC (06:53)
[2018-05-16] MEDS: Aspirin 81 MG TAB.CHEW PO (09:52)
[2018-05-16] MEDS: Ferrous Sulfate 325 MG Tablet PO (09:52)
[2018-05-16] MEDS: Carvedilol 3.125 MG TABLET PO (09:53)
[2018-05-16] MEDS: Cinacalcet HCl 30 MG Tablet 60 MG PO (09:53)
[2018-05-16] MEDS: SEVELAMER CARBONATE 800 MG TABLET PO (09:53)
--- NOTE | 2018-05-16 10:22 | PCM.DC ---
- Discharge Diagnoses Current Active Problems: Current Active and Chronic Problems (Last Reviewed 05/15/18 @ 06:49 by Lg Krishnan MD) Junctional tachycardia (Acute) Dyspnea (Acute) ESRD (end stage renal disease) (Chronic) Due to hypertension, On hemodialysis, TTS, followed by Dr. Goncalves Chest pain (Acute) You will use the following diet at home:: Renal (restricted protein/sodium) Your food should be the consistency of: Regular Your liquids should be the consistency of: Regular/Thin Discharge Activity: Return to Normal Activity Call your doctor if you observe: Fever of 101 or Higher, Shortness of breath, Chest pain, Increased palpitations (irregular heartbeat) Allergies/Adverse Reactions: Allergies No Known Allergies Allergy (Verified 05/15/18 01:18) Medications to take at Discharge cinacalcet 60 mg tablet 60 mg PO TUTHSA 10/10/17 sevelamer carbonate 800 mg tablet 800 mg PO TID 10/10/17 Carvedilol [Coreg (Beta Yossi)] 1 tab PO BID 01/08/18 Ferric Citrate [Auryxia] 3 tab PO TIDCM 05/15/18 Aspirin [Aspirin, Baby] 81 mg PO DAILY@0800 #30 tab.chew 05/16/18 The following prescriptions were given: Aspirin [Aspirin, Baby] 81 mg PO DAILY@0800 #30 tab.chew Primary Care Physician: Pawel Banda MD [Primary Care Provider] - Please follow up with your Primary Care Physician in: in 3-5 days Test Results: Test results from this visit will be discussed in further detail at your follow-up appointment, if applicable.
--- NOTE | 2018-05-16 10:29 | PCM.DC.SUM ---
Discharge Date and Diagnosis - Problem List Patient Problems: Active and Suspected Problems (Last Reviewed 05/15/18 @ 06:49 by gL Krishnan MD) Junctional tachycardia (Acute) Dyspnea (Acute) Pulmonary embolism (Suspected) Chest pain (Acute) Date of Admission: 05/15/18 Date of Discharge: 05/16/18 - Primary Discharge Diagnosis Active and Suspected Problems (Last Reviewed 05/15/18 @ 06:49 by Lg Krishnan MD) Junctional tachycardia (Acute) Dyspnea (Acute) Pulmonary embolism (Suspected) Chest pain (Acute) - Secondary Discharge Diagnosis Chronic Problems (Last Reviewed 05/15/18 @ 06:49 by Lg Krishnan MD) Chronic pelvic pain in male (Chronic) Pelvic mass (Chronic) Hematuria (Chronic) Anemia of chronic disorder (Chronic) History of bacterial endocarditis (Chronic) Hypertension (Chronic) ESRD (end stage renal disease) (Chronic) Due to hypertension, On hemodialysis, TTS, followed by Dr. Goncalves Morbidly obese (Chronic) Sleep apnea (Chronic) 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 due to renal insufficiency (Chronic) Hospital Course and Treatment Imaging Results: CTA Chest: IMPRESSION: Evaluation is limited for pulmonary embolism due to bolus timing as well as patient's body habitus and upper extremities being down during the examination. There are multiple areas which would be concerning for pulmonary emboli versus artifact. Within the left lower lobe there is a segmental and right lower lobe subsegmental pulmonary artery which is higher in concern for a pulmonary embolism. Recommend correlation with either nuclear medicine ventilation perfusion study or repeat CT angiogram with improved bolus timing. There is no pulmonary embolism identified within the main pulmonary artery or the right or left main pulmonary arteries. Severe Central venous stenosis with innumerable venous collaterals. This likely is the reason for bolus timing. A lower extremity approach injection may be more beneficial. Recommend nonemergent thyroid ultrasound. Right upper lobe new pulmonary nodule. Recommend 6 month follow-up CT scan for stability. V/Q scan: IMPRESSION: 1. NORMAL 99m Tc MAA pulmonary perfusion imaging examination, according to PIOPED II interpretive criteria. (Sotsanat et al, Radiology 246: 941, 2008 Soerica et al, J Nucl Med 49: 1741, 2008). 2. Central clumping of the aerosol may be secondary to obstructive airway mechanics and or clinical tachypnea. Thyroid US: RIGHT LOBE: The right lobe of the thyroid gland measures 5.1 x 1.9 x 1.8 cm. There is a heterogeneous echotexture. There are no demonstrated solid, cystic or complex lesions. LEFT LOBE: The left lobe of the thyroid gland measures 4.6 x 2.2 x 2.0 cm. There is a heterogeneous echotexture. There are no demonstrated solid, cystic or complex lesions. ISTHMUS: The isthmus measures 6 mm. The regional lymph nodes are normal. Consults: Nephrology Cardiology Operations: None Procedures: Stress test - EKG Data Baseline ECG demonstrates normal sinus rhythm with a rate of 108 beats per minute. The patient was titrated from 10 mcg to a maximum of 40 mcg of dobutamine during the stress. The maximum heart rate attained was 164 beats per minute. This was 89% of maximum predicted heart rate. During dobutamine infusion, there were no ST or T wave changes noted to suggest ischemia. At peak infusion, upsloping ST changes only were noted, which did not meet the criteria for ischemia. The peak blood pressure was 120/43. Interpretation Summary The peak blood pressure was 120/43. Normal resting LV systolic function. Nonstenotic valves. With stress, the LV size decreased and all segments augmented normally. The LVEF increased from 65% to 75%. Negative for ischemia at89% of MPHR and at 1 METS. Chamber obliteration was noted with no wall motion abnormalities. Normal stress echo Summary of Care Provided: HPI: The patient is a 38 year old M with a significant history of sleep apnea hypertension, end-stage renal disease (dialysis Tuesdays, and Saturdays), former smoker, previous blood clots in lungs, and previous blood clot in neck who presents with multifactorial symptoms of Chest pain, shortness of breath, lightheadedness, lethargy and weakness ?3 days. He describes chest pain as heaviness on his chest; and some burning.. Chest pain increases with minimal exertion a chest. CTA chest done at emergency department was a limited study because of a poor timing secondary to patient's anatomy. However the chest x-ray showed multiple areas concerning for pulmonary emboli versus artifact. Patient was empirically started on heparin drip from the emergency department. General: Alert, Oriented x3, Cooperative HEENT: Atraumatic, EOMI, Normocephalic Neck: Supple, No JVD Lungs: CTAB no wrrc Cardiovascular: RRR no mrg Abdomen: s, nt,nd,ng Skin: No rashes, No breakdown Psych/Mental Status: Appropriate Hospital Course 1. Dyspnea/Chest pain/ESRD - Initially there was some concern that this was d/t a PE. He had a CTA in the ER that was inconclusive. He had a aVQ scan that was negative. The CTA chest did indicate a pulmonary nodule that would need follow-up as an outpatient in 6 months and this was discussed with the patient. Cardiology was consulted for the chest pain as well. Troponins were serially negative and the dobutamine stress echo was also normal and rules out ischemia. Intially he was hypotensive and slightly tachycardic. We discussed this with his outpatient dialysis company and they said that he can vary wildly in his BP but his HR is usually around 100. They removed 4 L on his dialysis treatment the day prior to admission so he was given gentle hydration with the plan to have 1 liter removed at dialysis today after discharge. He states that his pain is improved today without any significant intervention. Will dc home with outpatient dialysis and PCP follow-up. A baby aspirin was added to his medication regimen given his comorbidities. 2. His other diagnoses were assessed and his home meds were continued where appropriate. Vital Signs Temp Pulse Resp BP Pulse Ox 05/16/18 07:00 106 H 100 05/16/18 06:59 97.8 F 102 H 18 123/67 H 94 05/16/18 03:28 97.9 F 60 16 122/71 H 100 05/16/18 03:15 60 16 99 05/16/18 02:59 97 05/16/18 00:25 100 18 97 05/15/18 23:02 101 H Discharge Activity: Return to Normal Activity Call your doctor if you observe: Fever of 101 or Higher, Shortness of breath, Chest pain, Increased palpitations (irregular heartbeat) Home Medications: Medications to take at Discharge cinacalcet 60 mg tablet 60 mg PO TUTHSA 10/10/17 sevelamer carbonate 800 mg tablet 800 mg PO TID 10/10/17 Carvedilol [Coreg (Beta Yossi)] 1 tab PO BID 01/08/18 Ferric Citrate [Auryxia] 3 tab PO TIDCM 05/15/18 Aspirin [Aspirin, Baby] 81 mg PO DAILY@0800 #30 tab.chew 05/16/18 Following Prescrptions Were Given to Patient: Aspirin [Aspirin, Baby] 81 mg PO DAILY@0800 #30 tab.chew Primary Care Physician: Pawel Banda MD [Primary Care Provider] - Please follow up with your Primary Care Physician in: in 3-5 days Disposition: Home Minutes spent on discharge:: 37 Patient Condition:: Stable Medical Necessity - Tobacco Use Smoking Status: Former smoker Meaningful Use Info Meaningful Use Diagnoses (Choose all that apply): None applicable Code Visit Inpatient E&M: 85728 Disch Hosp
--- NOTE | 2018-05-18 14:15 | CASEMGMT ---
RACHEL PARNELL DC phone call DC Date 05/16/18 Lace 3 DC disposition: Home Intro role of CM to patient via phone. pt states he forgot his dc instructions at hospital. RACHEL PARNELL reviewed instructions verbally over phone. Pt had questions re: baby asa. reviewed setting up appt with PCP. 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 RACHEL PARNELL offered to have copy of dc instructions printed and mailed to pt-he would like to pick them up @ hospital tomorrow. RACHEL PARNELL left copy @ desk on PCU and notified charge nurse. No further questions re: instructions, prescriptions or f/u. A.Jenna KENNEDY RN ACM
== END 2018-05-16 11:51 | disposition home or self-care (01) | DRG 313 ==
LOC: ED 01:59 → PCU 04:11
PROVIDERS: Admitting Provider Hospitalist; Emergency Provider Emergency Medicine; Family Provider Internal Medicine; PCP Internal Medicine; Visit Provider Family Medicine
DX: R07.9 Chest pain, unspecified (principal); N18.6 End stage renal disease; I47.1 Supraventricular tachycardia; I12.0 Hypertensive chronic kidney disease with stage 5 chronic kidney disease or end stage renal disease; N25.81 Secondary hyperparathyroidism of renal origin; Z99.2 Dependence on renal dialysis; Z86.711 Personal history of pulmonary embolism; E66.01 Morbid (severe) obesity due to excess calories; Z68.39 Body mass index [BMI] 39.0-39.9, adult; D63.8 Anemia in other chronic diseases classified elsewhere; R91.1 Solitary pulmonary nodule
CPT/HCPCS: 36415; 71046; 71275; 76536; 78582; 80048; 84443; 84484; 85025; 85379; 85730; 87040; 93005; 93017; 93306; 93350; 94660; 97162; 97165; 99284; A9540; A9567; J7030; Q9967; A4216

== ENCOUNTER 2018-05-19 23:50 | Emergency (ER) | payer MEDICARE, MEDICAID, SELFPAY ==
[2018-05-19 23:50] VITALS: BP 136/85; PULSE 111; RESP 18; TEMP 36.6; O2SAT 97; BMI 38.7
[2018-05-20] MEDS: oxyCODONE 5 MG Tablet 10 MG PO (00:39)
--- NOTE | 2018-05-20 00:40 | ED.DCSUM_ITS ---
- ER Visit Summary Date of Service: 05/20/18 Chief Complaint: Left forearm pain and bleeding History of Present Illness: The patient is a 38 M Patient presented for evaluation secondary to left forearm pain and bleeding. Patient has a history of dialysis, and had a left-sided fistula. He is left-sided fistula clotted off , and he was up at [facility]. He states that he had a fistulogram, and they were attempting to perform interventions on his fistula for over 3 hours and were unsuccessful in opening it up. They then put a temporary Cordis in his left groin. Patient reports that he has had continuous slow bleeding from the left forearm, and is having a significant amount of pain. He denies any presence of fevers associated with this. Is not on any sort of 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s. Physical Examination: Physical exam unremarkable except for left upper extremity exam. Patient has a compressive dressing on his left arm. There are 2 vein puncture sites on the arm that have compressive dressing over top, and when removed there is blood clot and no active bleeding. There is exquisite tenderness to palpation of the arm. Left groin exam shows evidence that the patient has a Cordis in place with only a mild amount of bleeding on dressing. Test Results: None indicated Emergency Department Course and Treatment: Patient presented for evaluation secondary to mild bleeding and postoperative pain after having a fistulogram. He does not have evidence of significant bleeding. He has no palpable thrill or audible bruit, which is consistent with the fact that they state that they were unsuccessful in opening up his fistula. He has no signs of infection at this time. I believe the patient is appropriate for treatment with pain medication he was given a first dose in the emergency department and will be discharged with a short course of this. Disposition: Discharge Impression: 1. Mild postoperative bleeding 2. Postoperative pain This note was generated with [employer] dictation software. It may contain incorrect words, spelling, and punctuation that were not noted in review of the chart prior to signing ED Disposition - Plan for ED Patient: Disposition: Home or Assisted Living Chief Complaint: Wound Check Diagnosis: Postoperative pain Instructions: ED Post Op Pain Prescriptions: Oxycodone HCl/Acetaminophen [Percocet 5/325] 1 tab PO Q6H PRN PRN 3 Days #12 tab PRN Reason: Pain Referrals: Pawel Banda MD [Primary Care Provider] - As Needed
[2018-05-20 00:58] VITALS: BP 134/79; PULSE 82; RESP 22; O2SAT 98
== END 2018-05-20 01:00 | disposition home or self-care (01) ==
PROVIDERS: Emergency Provider Emergency Medicine; Family Provider Internal Medicine; PCP Internal Medicine
DX: I97.618 Postprocedural hemorrhage of a circulatory system organ or structure following other circulatory system procedure (principal); G89.18 Other acute postprocedural pain; N18.6 End stage renal disease; Z99.2 Dependence on renal dialysis
CPT/HCPCS: 99283

== ENCOUNTER → 2018-06-10 08:12 | Outpatient (CLI) | payer MEDICARE, SELFPAY ==
--- NOTE | 2018-06-10 08:14 | VDUE_ITS ---
Reason For Study: ESRD - FAILED GRAFTS Right Arm Left Arm Right Cephalic Vein at the wrist Occluded graft lt forearm. measures .14 X .15 cm. Left Cephalic Vein above antecub Right Cephalic Vein in the forearm measures .28 x .29 cm. measures .18 X .20 cm. Left Cephalic Vein at mid bicep measures .41 Right Cephalic Vein below antecub x .44 cm. measures .20 X .21 cm. Left Cephalic Vein at the shoulder Right Cephalic Vein above antecub measures .28 x .27 cm. measures .33 X .36 cm. Basilic vein at origin measures .50 x .51 Occluded graft upper arm. cm. Right Basilic Vein at the origin Basilic vein at bicep measures .51 x .56 cm. measures .28 x .29 cm. Basilic vein above antecub measures .54 Right Basilic Vein mid bicep measures .25 x .59 cm. x .28 cm. Basilic v is non-compressible below Right Basilic Vein above antecub antecubital space. measures .22 x .24 cm. Brachial artery - .50 x .53 cm with a Brachial artery - .49 x .51 cm with a velocity of 65.6 cm/s velocity of 69.1 cm/s Radial artery - .21 x .23 cm with a velocity Radial artery - .21 x .23 cm with a velocity of 48.3 cm/s. of 13.6 cm/s Ulnar artery - 62.5 cm/s. Interpretation Summary Small right forearm cephalic vein Occluded right upper arm AV graft Small right upper arm basilic vein Adequate right brachial and radial arteries. Adequate left upper arm cephalic vein Occluded left forearm AV graft Adequate left upper arm basilic vein Superficial thrombophlebitis left forearm basilic vein Adequate left brachial artery Poor flow left radial artery Ordering Physician: Dania Melendez Referring Physician: Dania Melendez Performed By: Aleida Spivey RVT ???
== END ==
PROVIDERS: Family Provider Internal Medicine; PCP Internal Medicine; Visit Provider Internal Medicine Nephrology
DX: Z01.818 Encounter for other preprocedural examination (principal); N18.6 End stage renal disease
CPT/HCPCS: 93970; 93971; G0365

== ENCOUNTER → 2018-07-10 20:25 | Outpatient (CLI) | payer MEDICARE, SELFPAY | PROVIDERS: Family Provider Internal Medicine; PCP Internal Medicine; Visit Provider Nurse Practitioner Family | DX: G47.30 Sleep apnea, unspecified (principal); R40.0 Somnolence | CPT/HCPCS: 95811 ==

== ENCOUNTER 2018-08-11 14:36 | Emergency (ER) | payer MEDICARE, SELFPAY ==
[2018-08-11 14:38] VITALS: BP 136/101; PULSE 95; RESP 18; TEMP 36.4; O2SAT 95; BMI 41.7
--- NOTE | 2018-08-11 15:20 | ED.VISSUMM ---
- ER Visit Summary Date of Service: 08/11/18 Chief Complaint: Right flank pain History of Present Illness: The patient is a 38 M history of hypertension end-stage renal disease and gets dialysis patient patient was dialyzed today and is typically dialyzed Friday and Friday. States that on Friday evening had sudden onset of right flank pain. Worse with movement. Denies any falls or trauma. No dysuria. He has recently been worked up for gross hematuria he said he had a cystoscopy done at [facility] within the last 2 weeks which was negative. He said it on a specific cause for the bleeding. He is on no blood thinners. He denies getting heparin with his dialysis. He has had a PE before. He denies any chest pain or shortness of breath though. He denies any leg pain or swelling. Physical Examination: Well-appearing young male. Vital signs are stable. He is afebrile. His pulse ox is 95% on room air no signs of hypoxia. H EENT exam unremarkable. Neck nontender. No JVD. Lungs clear to auscultation bilaterally. Heart regular rhythm no murmur. Chest wall nontender. Abdomen is obese but soft and nontender. Normal bowel sounds no peritoneal signs. Patient is moving all 4 extremities. Calves are nontender without edema nor cords. Back exam he has right CVA tenderness. About at the lower rib level. There is no ecchymosis or bruising or signs of trauma. Neurologically is awake alert with no focal motor deficits. Test Results: CT flank shows no acute abnormality. No hydronephrosis . No renal stone. There are renal cysts. But no acute abnormality explaining his pain. CTA chest was nondiagnostic. There was no obvious PE but it could not be ruled out. I did discuss this with the radiologist. Venous study of the patient's leg shows no DVT. White count is 5. Hemoglobin 11.7. No bands. Electrolytes unremarkable gap of 10. BUN 41 creatinine 10. D-dimer was elevated at 1.28. Emergency Department Course and Treatment: Acute right flank pain treated with morphine and Zofran. Patient continually and repeatedly asked for additional pain medication. Clinically I do not feel this is a PE. On repeat examination he has exquisite and out of proportion to exam musculoskeletal right lower rib and back pain. Patient wanted to be admitted for further evaluation. When I looked through his old records he had a similar presentation and a negative VQ scan done in the past. Treatment Plan: I have his primary care physician on page. Patient will be discharged home. With outpatient follow-up. Disposition: Discharge Impression: Acute right flank pain of uncertain etiology This note was generated with [employer] dictation software. It may contain incorrect words, spelling, and punctuation that were not noted in review of the chart prior to signing ED Disposition - Plan for ED Patient: Chief Complaint: Flank Pain Referrals: Pawel Banda MD [Primary Care Provider] -
--- NOTE | 2018-08-11 15:24 | ED.DCSUM_ITS ---
- ER Visit Summary Date of Service: 08/11/18 Chief Complaint: Right flank pain History of Present Illness: The patient is a 38 M history of hypertension end- stage renal disease and gets dialysis patient patient was dialyzed today and is typically dialyzed Friday and Friday. States that on Friday evening had sudden onset of right flank pain. Worse with movement. Denies any falls or trauma. No dysuria. He has recently been worked up for gross hematuria he said he had a cystoscopy done at [facility] within the last 2 weeks which was negative. He said it on a specific cause for the bleeding. He is on no blood thinners. He denies getting heparin with his dialysis. He has had a PE before. He denies any chest pain or shortness of breath though. He denies any leg pain or swelling. Physical Examination: Well-appearing young male. Vital signs are stable. He is afebrile. His pulse ox is 95% on room air no signs of hypoxia. H EENT exam unremarkable. Neck nontender. No JVD. Lungs clear to auscultation bilaterally. Heart regular rhythm no murmur. Chest wall nontender. Abdomen is obese but soft and nontender. Normal bowel sounds no peritoneal signs. Patient is moving all 4 extremities. Calves are nontender without edema nor cords. Back exam he has right CVA tenderness. About at the lower rib level. There is no ecchymosis or bruising or signs of trauma. Neurologically is awake alert with no focal motor deficits. Test Results: CT flank shows no acute abnormality. No hydronephrosis . No renal stone. There are renal cysts. But no acute abnormality explaining his pain. CTA chest was nondiagnostic. There was no obvious PE but it could not be ruled out. I did discuss this with the radiologist. Venous study of the patient's leg shows no DVT. White count is 5. Hemoglobin 11.7. No bands. Electrolytes unremarkable gap of 10. BUN 41 creatinine 10. D-dimer was elevated at 1.28. Emergency Department Course and Treatment: Acute right flank pain treated with morphine and Zofran. Patient continually and repeatedly asked for additional pain medication. Clinically I do not feel this is a PE. On repeat examination he has exquisite and out of proportion to exam musculoskeletal right lower rib and back pain. Patient wanted to be admitted for further evaluation. When I looked through his old records he had a similar presentation and a negative VQ scan done in the past. Treatment Plan: I have his primary care physician on page. Patient will be discharged home. With outpatient follow-up. Disposition: Discharge Impression: Acute right flank pain of uncertain etiology This note was generated with [employer] dictation software. It may contain incorrect words, spelling, and punctuation that were not noted in review of the chart prior to signing ED Disposition - Plan for ED Patient: Chief Complaint: Flank Pain Referrals: Pawel Banda MD [Primary Care Provider] -
[2018-08-11] MEDS: morphine 8 MG/ML Syringe 6 MG IV ×2 (15:39→16:33)
[2018-08-11] MEDS: Ondansetron 4 MG/2 ML Vial IV (15:39)
[2018-08-11 15:48] LABS: Absolute Lymphocyte Count 0.96 X10^3/ul (0.83-4.51); Absolute Neutrophil Count 3.4 X10^3/uL (2.0-7.7); Basophil# 0.01 X10^3/uL; Basophil% 0.2 % (0-1); Eosinophil# 0.13 X10^3/uL; Eosinophils% 2.4 % (0-5); Hemoglobin 11.7 g/dl (13.0-16.5); Lymphocyte # 0.96 X10^3/ul (4.0); Lymphocyte % 17.7 % (19-41); Mean Corp Hgb Conc 30.8 g/gl (32-36); Mean Corpuscular Volume 90.9 fL (80-94); Mean Platelet Vol. 10.5 fl (6.2-12.0); Monocyte# 0.89 X10^3/uL; Monocyte% 16.4 % (0-10); Neutrophil # 3.43 X10^3/uL (2.7-7.7); Neutrophil % 63.1 % (47-70); Platelet Count 197 K/mm3 (150-450); RBC Distribution Width CV 16.2 % (11.6-14.6); RBC Distribution Width SD 53.7 fl (35.1-43.9); Red Blood Count 4.18 M/mm3 (4.6-6.2); White Blood Count 5.4 K/mm3 (4.4-11.0)
[2018-08-11 16:09] LABS: Anion Gap 10 (5-15); BUN 41 mg/dL (7-18); BUN/Creat Ratio 3.9 RATIO (10-20); Calcium,Total 8.6 mg/dL (8.5-10.1); Chloride 97 mmol/L (98-107); EST Glomerular Filtration Rate 6 mL/min (>60); Est Glom Filt Rate - Afr Amer 7 mL/min (>60); Estimated Creatinine Clearance 10.14 ml/min; Glucose 100 mg/dL (74-106); Potassium 4.5 mmol/L (3.5-5.1); Sodium Level 137 mmol/L (136-145)
--- NOTE | 2018-08-11 16:09 | ED.RN ---
creat 10.4 called from the lab. dr germain aware
[2018-08-11 16:11] LABS: D-Dimer Quantitative (DVT/PE) 1.28 FEU/ug/m (0.27-0.49)
--- NOTE | 2018-08-11 16:12 | ED.RN ---
LAB CALLED CRITICAL RESULT ON THIS PATIENT, D-DIMER 1.28, DR ROSSI NOTIFIED, NFO GIVEN
[2018-08-11 16:16] LABS: POSITIVE COUNT NO; POSITIVE DIFFERENTIAL NO; POSITIVE MORPHOLOGY NO
--- NOTE | 2018-08-11 16:32 | CT_ITS ---
STUDY: CTA CHEST REASON FOR EXAM: Male, 38 years old. Chest pain and right flank pain RADIATION DOSAGE (If Supplied By Facility): CTDIvol = ( ) mGy, DLP = ( ) mGycm TECHNIQUE: The examination was performed with the intravenous administration of 100ML ml of Isovue 370 contrast material. Post-processing of the angiographic images was performed, with multiplanar reformation and 3D reconstruction. Individualized dose optimization techniques were used for this CT. COMPARISON: None. FINDINGS: Examination of the pulmonary arteries is extremely limited due to suboptimal timing of the bolus as well as contrast traversing numerous superficial venous collaterals consistent with proximal venous stenosis or occlusion.. . There is suboptimal contrast opacification of the pulmonary arteries which also demonstrate extensive linear artifact Mild atherosclerotic changes of the aorta without evidence for aneurysm There is no demonstrated aortic dissection. Heart is upper normal size. There is severe calcification of mitral annulus Normal mediastinum. Normal hilar regions. Normal visualized trachea and bronchi. The lungs are well expanded. There is chronic interstitial thickening most severe in the lower lobes Tiny subcentimeter nodule in the right upper lobe Normal pleura. Dorsal spine demonstrates scoliosis and degenerative changes Normal visualized upper abdomen. CT/CTA Chest W/WO Contrast IMPRESSION: Mild chronic interstitial changes most severe in the lower lobes Nondiagnostic study of the pulmonary arteries If strong clinical suspicion for pulmonary embolus VQ scan and Doppler study of the deep venous system of the lower extremities recommended There are findings consistent with severe venous stenosis or occlusion resulting in extensive superficial venous collateral opacification Electronically Signed: Harpreet Brian MD at 17:40 EST , Service support ,
--- NOTE | 2018-08-11 16:35 | CT_ITS ---
STUDY: CT ABDOMEN AND PELVIS WITH CONTRAST REASON FOR EXAM: Male, 38 years old. Right flank pain RADIATION DOSAGE (If Supplied By Facility): CTDIvol = ( 35.66 ) mGy, DLP = ( 4170.79 ) mGycm TECHNIQUE: Transaxial images were obtained from the dome of the diaphragm to the symphysis pubis without oral contrast. 100ML ml of Isovue 370 contrast was administered. Sagittal and coronal images were reconstructed. Individualized dose optimization techniques were used for this CT. COMPARISON: None. FINDINGS: There is minor atelectasis within the dependent portion of the lungs.. The visualized portions of the heart are within normal limits. Liver is enlarged but homogeneous attenuation without mass or bile duct dilatation. Normal gallbladder and extrahepatic biliary system. Borderline splenomegaly. Normal pancreas. Normal bilateral adrenal glands. Kidney are within lower limits of normal in size. No evidence for renal obstruction or ureteral calculus. There are multiple tiny cysts in each kidney. Normal visualized stomach. Mild nonspecific ileus with diffuse fecal retention in the colon.. The appendix is visualized and appears normal. Normal abdominal aorta. Normal inferior vena cava. Normal retroperitoneum. Normal urinary bladder. There is a lesion involving the right superior pubis demonstrating both lytic changes as well as extensive calcifications extending into the soft tissues in the space of Retzius, the proximal hamstring muscles on the right and medial aspect of the right thigh.. There are numerous enhancing venous collaterals seen within the anterior abdominal and pelvic wall . There is a focal lytic lesion involving the spinous process of L4. There are also lucent erosive changes involving the sacroiliac joints bilaterally Findings are relatively stable since prior exam CT/Abdomen/Pelvis WITH Contrast IMPRESSION: No acute abnormalities. No evidence for hydronephrosis or ureteral calculus Both kidneys are within lower limits of normal size and demonstrates multiple small cysts Other findings as above Electronically Signed: Harpreet Brian MD at 17:56 EST , Service support ,
[2018-08-11 17:13] VITALS: BP 97/59; PULSE 87; RESP 18; O2SAT 99
--- NOTE | 2018-08-11 18:31 | US_ITS ---
STUDY: VENOUS DOPPLER ULTRASOUND - BILATERAL LOWER EXTREMITIES REASON FOR EXAM: Male, 38 years old. Elevated d-dimer TECHNIQUE: Ultrasound evaluation of the deep vein system to include mcginnis-scale imaging and compression was performed. Mcginnis-scale imaging and Doppler sonographic evaluation, including duplex spectral analysis and qualitative color flow sonography, was performed. COMPARISON: None. FINDINGS: RIGHT LEG Common Femoral Vein: Normal compression, spontaneity and augmentation. Normal color Doppler. Common Femoral Vein/Greater Saphenous Junction: Normal compression, spontaneity and augmentation. Normal color Doppler. Deep Femoral Vein: Normal compression, spontaneity and augmentation. Normal color Doppler. Femoral Proximal: Normal compression, spontaneity and augmentation. Normal color Doppler. Femoral Middle: Normal compression, spontaneity and augmentation. Normal color Doppler. Femoral Distal: Normal compression, spontaneity and augmentation. Normal color Doppler. Popliteal Vein: Normal compression, spontaneity and augmentation. Normal color Doppler. Posterior Tibial Vein: Normal compression, spontaneity and augmentation. Normal color Doppler. Peroneal Vein: Normal compression, spontaneity and augmentation. Normal color Doppler. LEFT LEG Common Femoral Vein: Normal compression, spontaneity and augmentation. Normal color Doppler. Common Femoral Vein/Greater Saphenous Junction: Normal compression, spontaneity and augmentation. Normal color Doppler. Deep Femoral Vein: Normal compression, spontaneity and augmentation. Normal color Doppler. Femoral Proximal: Normal compression, spontaneity and augmentation. Normal color Doppler. Femoral Middle: Normal compression, spontaneity and augmentation. Normal color Doppler. Femoral Distal: Normal compression, spontaneity and augmentation. Normal color Doppler. Popliteal Vein: Normal compression, spontaneity and augmentation. Normal color Doppler. Posterior Tibial Vein: Normal compression, spontaneity and augmentation. Normal color Doppler. Peroneal Vein: Normal compression, spontaneity and augmentation. Normal color Doppler. US/Venous Duplex Imag/[place] Extrem IMPRESSION: Normal venous Doppler ultrasound of the bilateral lower extremities. Electronically Signed: Harpreet Brian MD at 19:28 EST , Service support ,
--- NOTE | 2018-08-11 22:57 | ED.DEP ---
ED Disposition - Plan for ED Patient: Disposition: Home or Assisted Living Chief Complaint: Flank Pain Instructions: ED Flank Pain Uncertain Cause Referrals: Pawel Banda MD [Primary Care Provider] - 1-2 Days if not improving Additional Instructions: Call follow-up with your doctor tomorrow.
[2018-08-11 23:07] VITALS: BP 104/63; PULSE 96; RESP 16; O2SAT 97
== END 2018-08-11 23:09 | disposition home or self-care (01) ==
PROVIDERS: Emergency Provider Emergency Medicine; Family Provider Internal Medicine; PCP Internal Medicine
DX: R10.9 Unspecified abdominal pain (principal); I12.0 Hypertensive chronic kidney disease with stage 5 chronic kidney disease or end stage renal disease; N18.6 End stage renal disease; Z99.2 Dependence on renal dialysis; Z86.711 Personal history of pulmonary embolism; Z79.899 Other long term (current) drug therapy
CPT/HCPCS: 71275; 74177; 80048; 85025; 85379; 93970; 96374; 96375; 96376; 99283; Q9967; A4216; J2405

== ENCOUNTER 2018-09-13 00:35 | Inpatient (IN) | payer MEDICARE, SELFPAY ==
[2018-08-12 13:48] VITALS: BMI 42.0
[2018-09-13] VITALS (20 sets, daily range): BP systolic 97–141; BP diastolic 60–106; PULSE 95–119; RESP 14–23; TEMP 36.4–37.1; O2SAT 95–100; BMI 40.4; BMI 40.5; BMI 42.3
--- NOTE | 2018-09-13 00:50 | ED.RN ---
RN CALLED FOR EKG, PULLED OLD EKGS FOR
--- NOTE | 2018-09-13 01:12 | RAD_ITS ---
HISTORY: PT STATED MID CHEST PAIN TODAY SOB FATIGUENO HX OF HEART LUNG DISEASE EXAM: XR Chest 2 Views: COMPARISON: 05/15/2018 FINDINGS: EKG leads in place. There is apparent right middle lobe infiltrate, not seen previously. Clear left lung. Normal heart size. No vascular congestion or pleural effusion. Thoracic dextroscoliosis, unchanged. RAD/Chest PA and Lateral IMPRESSION: 1. Right middle lobe infiltrate is suggested compatible with pneumonia. 2. Thoracic dextroscoliosis, unchanged. at 0219 Reported and signed by: Qasim Aleman MD Electronically Signed: Qasim Aleman, at 2:17 EST Tel , Service support ,
--- NOTE | 2018-09-13 01:12 | EKG12_ITS ---
Test Reason : CP Blood Pressure : / mmHG Vent. Rate : 106 BPM Atrial Rate : 106 BPM P-R Int : 260 ms QRS Dur : 074 ms QT Int : 332 ms P-R-T Axes : 071 078 057 degrees QTc Int : 441 ms Sinus tachycardia with 1st degree A-V block with Premature supraventricular complexes and with occasi onal Premature ventricular complexes Septal infarct , age undetermined Abnormal ECG Confirmed by SALMA STAHL, JACOBY ([id number]), acquisitions editor MIKI PAULINO ([id number]) on 09/16/2018 3:26:10 PM Referred By: LINA Confirmed By:JACOBY MARSH MD
[2018-09-13] MEDS: Aspirin 81 MG TAB.CHEW 324 MG PO (01:25)
[2018-09-13 01:36] LABS: Absolute Lymphocyte Count 1.54 X10^3/ul (0.83-4.51); Absolute Neutrophil Count 3.4 X10^3/uL (2.0-7.7); Basophil# 0.02 X10^3/uL; Basophil% 0.3 % (0-1); Eosinophil# 0.14 X10^3/uL; Eosinophils% 2.3 % (0-5); Hematocrit 35.8 % (40-54); Hemoglobin 11.1 g/dl (13.0-16.5); Lymphocyte # 1.54 X10^3/ul (4.0); Lymphocyte % 25.4 % (19-41); Mean Corpuscular Hgb 28.5 pg (27.0-32.0); Mean Corpuscular Volume 91.8 fL (80-94); Mean Platelet Vol. 11.3 fl (6.2-12.0); Monocyte# 0.98 X10^3/uL; Monocyte% 16.2 % (0-10); Neutrophil # 3.37 X10^3/uL (2.7-7.7); Neutrophil % 55.6 % (47-70); Platelet Count 172 K/mm3 (150-450); RBC Distribution Width CV 16.6 % (11.6-14.6); RBC Distribution Width SD 54.5 fl (35.1-43.9); White Blood Count 6.1 K/mm3 (4.4-11.0)
[2018-09-13 01:37] LABS: POSITIVE COUNT NO; POSITIVE DIFFERENTIAL NO; POSITIVE MORPHOLOGY NO
[2018-09-13 02:45] LABS: Anion Gap 11 (5-15); BUN 55 mg/dL (7-18); BUN/Creat Ratio 4.4 RATIO (10-20); Calcium,Total 8.6 mg/dL (8.5-10.1); Chloride 99 mmol/L (98-107); EST Glomerular Filtration Rate 5 mL/min (>60); Est Glom Filt Rate - Afr Amer 6 mL/min (>60); Glucose 92 mg/dL (74-106); Potassium 5.7 mmol/L (3.5-5.1); Sodium Level 136 mmol/L (136-145)
--- NOTE | 2018-09-13 02:45 | ED.RN ---
lab called with critical lab results. Creatine level 12.4. Dr. Harrison made aware.
--- NOTE | 2018-09-13 04:15 | ED.VISSUMM ---
- ER Visit Summary Date of Service: 09/13/18 Chief Complaint: Chest pain History of Present Illness: The patient is a 38 M who presents with chest pain. It began about 2 hours before presentation. He describes it as a heaviness and feeling like bricks on my chest. It is currently 7 out of 10. He had prior similar symptoms. He has a history of pulmonary embolism which was related to travel. He reports shortness of breath. No nausea vomiting or diaphoresis. He states he was not feeling well last night and had difficulty sleeping. He did have an episode of near syncope earlier as well but this is since resolved. No history of coronary disease. Physical Examination: Afebrile heart rate 104 respiratory rate 23 pulse ox 98% Moist mucous membranes Heart regular rhythm tachycardia Lungs are clear And soft Extremities nontender Alert Test Results: EKG shows sinus rhythm at a rate of 106. Labs notable for potassium 5.7, BUN 55, creatinine 12.4. Troponin is 0.154. Lactic acid is normal. Blood cultures were sent. Chest x-ray shows a right middle lobe infiltrate. Emergency Department Course and Treatment: Initially patient was evaluated for acute UT with EKG chest x-ray laboratory studies including troponin. Chest x-ray showed a right middle lobe infiltrate. His troponin elevation may be related to his renal disease but I do feel he will need serial enzymes and further evaluation for this as well. He was given IV Zosyn and vancomycin for healthcare associated pneumonia. Patient will be admitted. His potassium is elevated but he does not have any acute EKG changes. He was treated with IV fluids here. Treatment Plan: [] Disposition: Admit Impression: Healthcare associated pneumonia Chest pain Hyperkalemia This note was generated with [employer] dictation software. It may contain incorrect words, spelling, and punctuation that were not noted in review of the chart prior to signing ED Disposition - Plan for ED Patient: Chief Complaint: Chest Pain Referrals: Pawel Banda MD [Primary Care Provider] -
--- NOTE | 2018-09-13 04:19 | ED.DCSUM_ITS ---
- ER Visit Summary Date of Service: 09/13/18 Chief Complaint: Chest pain History of Present Illness: The patient is a 38 M who presents with chest pain. It began about 2 hours before presentation. He describes it as a heaviness and feeling like bricks on my chest. It is currently 7 out of 10. He had prior similar symptoms. He has a history of pulmonary embolism which was related to travel. He reports shortness of breath. No nausea vomiting or diaphoresis. He states he was not feeling well last night and had difficulty sleeping. He did have an episode of near syncope earlier as well but this is since resolved. No history of coronary disease. Physical Examination: Afebrile heart rate 104 respiratory rate 23 pulse ox 98% Moist mucous membranes Heart regular rhythm tachycardia Lungs are clear And soft Extremities nontender Alert Test Results: EKG shows sinus rhythm at a rate of 106. Labs notable for potassium 5.7, BUN 55, creatinine 12.4. Troponin is 0.154. Lactic acid is normal. Blood cultures were sent. Chest x-ray shows a right middle lobe infiltrate. Emergency Department Course and Treatment: Initially patient was evaluated for acute RI with EKG chest x-ray laboratory studies including troponin. Chest x- ray showed a right middle lobe infiltrate. His troponin elevation may be related to his renal disease but I do feel he will need serial enzymes and further evaluation for this as well. He was given IV Zosyn and vancomycin for healthcare associated pneumonia. Patient will be admitted. His potassium is elevated but he does not have any acute EKG changes. He was treated with IV fluids here. Treatment Plan: [] Disposition: Admit Impression: Healthcare associated pneumonia Chest pain Hyperkalemia This note was generated with [employer] dictation software. It may contain incorrect words, spelling, and punctuation that were not noted in review of the chart prior to signing ED Disposition - Plan for ED Patient: Chief Complaint: Chest Pain Referrals: Pawel Banda MD [Primary Care Provider] -
[2018-09-13] MEDS: Albuterol 2.5 MG/3 ML VIAL.NEB. INHALATION (04:29)
[2018-09-13] MEDS: Sodium Polystyrene Sulfonate 15 GM/60 ML UDC 30 GM PO (04:40)
--- NOTE | 2018-09-13 04:52 | PCM.HP.STD ---
Problem List (1) HCAP (healthcare-associated pneumonia) Status: Acute (2) ESRD (end stage renal disease) Status: Chronic Comment: Due to hypertension, On hemodialysis, TTS, followed by Dr. Goncalves (3) Morbidly obese Status: Chronic (4) Chest pain Status: Acute History of Present Illness Date of Admission: 09/13/18 Chief Complaint: Chest pain The patient is a 38 year old male w/ h/o ESRD, HTN, morbid obesity and hematuria is admitted for chest pain. 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 However, during his drive home in the late evening, he noted moderate chest pressure substernal. He felt as if there were bricks on his chest. He had similar symptoms in the past. Nothing improved or worsened his chest pain. Pain was not associated with any other symptoms. No diaphoresis. No palpitation. Past Medical History Past Medical History (Chronic Problems): Chronic Problems (Last Reviewed 09/13/18 @ 05:00 by Anuel Abraham MD) Sleep apnea (Chronic) Lightheadedness (Chronic) Chronic pelvic pain in male (Chronic) Pelvic mass (Chronic) Hematuria (Chronic) Hearing loss (Chronic) in both ears Anemia of chronic disorder (Chronic) History of bacterial endocarditis (Chronic) Hypertension (Chronic) ESRD (end stage renal disease) (Chronic) Due to hypertension, On hemodialysis, TTS, followed by Dr. Goncalves Morbidly obese (Chronic) Sleep apnea (Chronic) 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 due to renal insufficiency (Chronic) Medical History: Medical History (Last Reviewed 09/13/18 @ 05:00 by Anuel Abraham MD) Sleep apnea (Chronic) G47.30 History of blood clots (Acute) Z86.718 fistula developed a clot and had to be surgically removed Hearing loss (Chronic) H91.90 in both ears Allergies No Known Allergies Allergy (Verified 09/13/18 00:38) Home Medications: Ambulatory Orders Medication Instructions Recorded cinacalcet 60 mg tablet 60 mg PO TUTHSA 10/10/17 Carvedilol [Coreg (Beta Yossi)] 1 tab PO BID 01/08/18 Ferric Citrate [Auryxia] 3 tab PO TIDCM 05/15/18 oxycodone-acetaminophen 5 mg-325 1 tab PO BID PRN #14 tab 08/12/18 mg tablet Surgical History: herniorrhaphy, - Smoking Status: Former smoker - *Family History Maternal History Items: No pertinent history Review of Systems Constitutional: Denies: Chills, Fever, Weight Change HEENT: Denies: Head Aches, Sinus Congestion, Sinus Drainage Cardiovascular: Reports: Chest Pain. Denies: Palpitations Respiratory: Reports: Cough, Pleuritic Pain, Shortness of Breath, Sputum production. Denies: Shortness of breath at rest Gastrointestinal: Denies: Abdominal Pain, Nausea, Vomiting Genitourinary: Denies: Dysuria Musculoskeletal: Denies: Joint Pain, Joint Tenderness Skin: Denies: Rash, Wounds Neurological: Denies: Numbness, Tingling, Focal weakness Psychiatric: Denies: Anxiety, Depression, Homicidal Ideations, Suicidal Ideations Hematologic/ Lymphatic: Denies: Easy Bruising, Easy Bleeding VTE Information - Inpt Only VTE Present on Admission: No VTE Mechan Device Prophylaxis: SCD's VTE Pharm Prophylaxis ordered?: Yes Patient Problems: Active and Suspected Problems (Last Reviewed 09/13/18 @ 05:00 by Anuel Abraham MD) HCAP (healthcare-associated pneumonia) (Acute) - Physical Exam General: Alert, Oriented x3, Cooperative HEENT: Atraumatic, PERRLA, EOMI, Normocephalic Neck: Supple, No JVD, Negative Carotid Bruits Lungs: Clear to auscultation, Normal air movement Cardiovascular: Regular rate, No murmurs Abdomen: Bowel Sounds Present, Soft, Non Tender Extremities: No edema, Capillary Refill Less than 3 Seconds Skin: No rashes, No breakdown Musculoskeletal: No Tenderness to Palpation of Joints or Extremities Neurological: Cranial nerves II-XII grossly intact Psych/Mental Status: Normal Affect, Appropriate Vital Signs Temp Pulse Resp BP Pulse Ox 98.1 F 102 H 18 115/72 98 09/13/18 00:38 09/13/18 04:29 09/13/18 04:29 09/13/18 03:01 09/13/18 03:01 Oxygen Delivery Method Room Air Weight: 127.913 kg Body Mass Index (BMI) 40.4 Laboratory Tests Past 24 Hrs 09/13/18 09/13/18 09/13/18 01:20 01:20 02:20 WBC 6.1 RBC 3.90 L Hgb 11.1 L Hct 35.8 L MCV 91.8 MCH 28.5 MCHC 31.0 L RDW 16.6 H RDW Differential 54.5 H Plt Count 172 MPV 11.3 Immature Gran % (Auto) 0.200 Neut % (Auto) 55.6 Lymph % (Auto) 25.4 [place] % (Auto) 16.2 H Eos % (Auto) 2.3 Baso % (Auto) 0.3 Absolute Neuts (auto) 3.4 Absolute Lymphs (auto) 1.54 Total Counted Not Reportable Sodium Cancelled 136 Potassium Cancelled 5.7 H Chloride Cancelled 99 Carbon Dioxide Cancelled 26.0 Anion Gap Cancelled 11 BUN Cancelled 55 H Creatinine Cancelled 12.40 H* Estim Creat Clear Calc Cancelled 8.50 Est GFR (MDRD) Af Amer Cancelled 6 L Est GFR (MDRD) Non-Af Cancelled 5 L BUN/Creatinine Ratio Cancelled 4.4 L Glucose Cancelled 92 Lactic Acid Calcium Cancelled 8.6 Troponin I Cancelled 0.154 H 09/13/18 03:15 WBC RBC Hgb Hct MCV MCH MCHC RDW RDW Differential Plt Count MPV Immature Gran % (Auto) Neut % (Auto) Lymph % (Auto) [place] % (Auto) Eos % (Auto) Baso % (Auto) Absolute Neuts (auto) Absolute Lymphs (auto) Total Counted Sodium Potassium Chloride Carbon Dioxide Anion Gap BUN Creatinine Estim Creat Clear Calc Est GFR (MDRD) Af Amer Est GFR (MDRD) Non-Af BUN/Creatinine Ratio Glucose Lactic Acid 1.0 Calcium Troponin I Assessment/Plan All Active Problems (Last Reviewed 09/13/18 @ 05:00 by Anuel Abraham MD) HCAP (healthcare-associated pneumonia) (Acute) Junctional tachycardia (Acute) Dyspnea (Acute) Clotted dialysis access (Acute) History of blood clots (Acute) Acute viral bronchitis (Acute) Chest pain, musculoskeletal (Acute) Chest pain (Acute) 38 year old male w/ h/o ESRD, HTN, morbid obesity and hematuria is admitted for chest pain. 1) Chest pain: Heart score 5 Trop 0.[address] elevation. Chest xray disclosed right middle lobe infiltrate. Will get serial trops. ECHO in AM. Given significant risk, will consult cards. 2) ESRD, HD MWF: Consult nephrology. 3) Hyperkalemia: No EKG changes. K 5.7 Will consult nephrology for possible HD if worsening. 4) HTN: Resume home meds. Code Visit OBSV E&M: 23216 Initial observation care L3
--- NOTE | 2018-09-13 05:55 | ECHOCS_ITS ---
Reason For Study: chest pain Procedure This was a 2D Doppler, Color Flow transthoracic echocardiogram. The study was technically difficult. Due to body habitus. Contrast injection was performed. Exam performed portable in patient room. Left Ventricle Normal LV size. Severe concentric left ventricular hypertrophy. Left ventricular systolic function is normal. The estimated ejection fraction is 70 %. No regional wall motion abnormalities noted. Right Ventricle Normal RV size. Normal systolic function. Atria The left atrium is mildly enlarged. Normal right atrium. Mitral Valve There is moderate to severe mitral annular calcification. Tricuspid Valve Normal tricuspid valve. Mild (1+) tricuspid valve insufficiency. Pulmonary artery systolic pressure is 24 mmHg. Pericardium/Pleural No pericardial effusion. Medication Diluted definity 4.0ml given slow IV push to enhance endocardial definition. MMode/2D Measurements & Calculations LVIDd: 3.8 cm IVSd: 1.5 cm Ao root diam: 2.6 cm LVIDs: 2.3 cm LVPWd: 1.5 cm FS: 39.3 % LAV(MOD-bp): 77.2 ml LA dimension(2D): 4.3 cm LA A4 area: 24.5 cm2 LAV(MOD-bp) Indexed: 32.0 ml/m2 LAV(MOD-sp2): 75.3 ml LAV(MOD-sp4): 78.3 ml Doppler Measurements & Calculations MV E max george: 241.9 cm/sec Ao V2 max: 172.2 cm/sec LV V1 max: 137.6 cm/sec Ao max P.9 mmHg LV V1 max P.6 mmHg PA V2 max: 112.5 cm/sec TR max george: 228.7 cm/sec TR max P.9 mmHg Interpretation Summary Normal LV size. Severe concentric left ventricular hypertrophy. Mild (1+) tricuspid valve insufficiency. Contrast injection was performed. Compared to prior study, there is no significant change. Ordering Physician: Anuel Abraahm Referring Physician: Pawel Banda Performed By: Caroline Valero RDCS, RVT
[2018-09-13] MEDS: oxyCODONE 5 MG Tablet PO ×2 (06:19→22:11)
[2018-09-13] MEDS: Heparin Injection (Vial) 5,000 UNIT/ML VIAL 5000 UNIT SC ×3 (06:35→22:13)
--- NOTE | 2018-09-13 06:39 | PCM.RX.CS ---
Consult Pharmacy has been consulted to manage selected antiobiotic: Vancomycin Type of Consult: New start Suspected Infection: Pneumonia Prior Doses of Antibiotics Received/Current Regimen: Medications Discontinued Medications Vancomycin HCl 2,000 mg/ (Sodium Chloride) 540 mls @ 250 mls/hr IV X1 ONE Stop: 09/13/18 05:14 Last Admin: 09/13/18 03:25 Dose: 250 mls/hr Labs: Sodium 136 mmol/L (136-145) 09/13/18 02:20 Potassium 5.7 mmol/L (3.5-5.1) H 09/13/18 02:20 Chloride 99 mmol/L (98-107) 09/13/18 02:20 Carbon Dioxide 26.0 mmol/L (21.0-32.0) 09/13/18 02:20 Anion Gap 11 (5-15) 09/13/18 02:20 BUN 55 mg/dL (7-18) H 09/13/18 02:20 Creatinine 12.40 mg/dL (0.70-1.30) H* 09/13/18 02:20 Est GFR (MDRD) Af Amer 6 mL/min (>60) L 09/13/18 02:20 Est GFR (MDRD) Non-Af 5 mL/min (>60) L 09/13/18 02:20 BUN/Creatinine Ratio 4.4 RATIO (10-20) L 09/13/18 02:20 Glucose 92 mg/dL (74-106) 09/13/18 02:20 Weight used for dosin.7 kg Estimated Creatinine Clearance: 8.5 Goal Trough: 10-15 mcg/mL Pharmacy Plan for Drug Dosing: Initial dose of 2000mg vancomycin given in ED. Due to CrCl=8.5 will draw a random level in roughly 24-48 hours and determine continuing dosage from that result. Pharmacy Service will continue to monitor and adjust dosing as required. Follow-Up Labs: Trough Vancomycin - random Labs to be done on [date and time ordered]: 09/14/18 @0600
[2018-09-13 06:47] LABS: D-Dimer Quantitative (DVT/PE) 1.44 FEU/ug/m (0.27-0.49)
[2018-09-13 06:56] LABS: Hemoglobin 11.8 g/dl (13.0-16.5); Mean Corp Hgb Conc 30.3 g/gl (32-36); Mean Corpuscular Hgb 27.7 pg (27.0-32.0); Mean Corpuscular Volume 91.5 fL (80-94); Mean Platelet Vol. 11.1 fl (6.2-12.0); Platelet Count 176 K/mm3 (150-450); RBC Distribution Width CV 16.7 % (11.6-14.6); RBC Distribution Width SD 54.9 fl (35.1-43.9); Red Blood Count 4.26 M/mm3 (4.6-6.2); White Blood Count 5.8 K/mm3 (4.4-11.0)
[2018-09-13 06:58] LABS: Scan Indicated on CBC? Y/N NO
--- NOTE | 2018-09-13 07:12 | PCM.PN.BLA ---
Progress Note 38 YOM with a PMH of ESRD on HD, morbid obesity, YEIMY, hyperparathyroidism due to renal insufficiency, anemia of chronic disease, hearing loss in both ears, and HTN admitted to the hospital with PNA. Influenza swab positive for Influenza B. CXR shows a RML infiltrate. Afebrile since admission. WBC and the diff are normal. K 5.7 at admission. Troponin increased at 0.154 but the creat is 12 and the troponin is likely elevated due to renal failure. The troponin has not been trending. The pain is not relieved with Oxycodone. The pain increases with movement but not with a deep breath. Denies calf pain. No hx of VTE. He has no hx of CAD and there is no FH of CAD. Denies N/V. He does not appear to be in any distress. Afebrile. VSS. 99% on RA all lab was personally reviewed. PHYSICAL EXAM: GENERAL: alert, oriented X 3, Cooperative, NAD ORAL: moist mucosa, no mucosal lesions NECK: No JVD, supple, trachea midline LUNGS: CTA, symmetric chest expansion HEART: RRR, Normal S1 and S2, no rub, no gallop ABDOMEN: soft, NT, ND, BS present, no guarding with palpation, obese EXTREMITIES: mild 1+ edema - he is sitting in a chair with his legs dependent, no cyanosis, no calf tenderness SKIN: No rashes, no breakdown NEUROLOGIC: no focal neurologic deficits PSYCH: appropriate, normal affect, pleasant Impressions 1. non-cardiac CP - likely musculoskeletal. Dr. Marsh's consult reviewed. Troponin is likely increased secondary to the renal failure 2. Hyperkalemia - one dose Kayexalate today Will check an ESR - if it is elevated he could have pericarditis due to high creat and I just can't hear a rub Try a GI cocktail to see if the pain is relieved. Recheck a renal panel in the AM ESR is elevated at 92 and the CRP is elevated at 40. Will start prednisone and colchicine. ECHO tomorrow
[2018-09-13 07:46] LABS: BNP,B-Type NATRIURETIC PEPTIDE 47.2 pg/mL (0-100)
[2018-09-13 07:49] LABS: ALB/GLOB Ratio 0.6 RATIO (0.9-2.4); AST(SGOT) 9 U/L (15-37); Alanine Aminotransfer ALT/SGPT 8 U/L (16-61); Alkaline Phosphatase 63 U/L (45-117); Anion Gap 14 (5-15); BUN 55 mg/dL (7-18); BUN/Creat Ratio 4.3 RATIO (10-20); Calcium,Total 8.9 mg/dL (8.5-10.1); Chloride 98 mmol/L (98-107); Cholesterol 149 mg/dL (200); EST Glomerular Filtration Rate 5 mL/min (>60); Est Glom Filt Rate - Afr Amer 6 mL/min (>60); Estimated Creatinine Clearance 8.17 ml/min; Globulin 5.4 g/dL (2.2-4.2); Glucose 85 mg/dL (74-106); High Density Lipoprotein 41 mg/dL; Potassium 5.4 mmol/L (3.5-5.1); Protein, Total 8.4 g/dL (6.4-8.2); Sodium Level 138 mmol/L (136-145); Thyroid Stim Hormone (TSH) 3.79 uIU/mL (0.358-3.74); Triglycerides 114 mg/dL; Very Low Density Lipoprotein 23 mg/dL (5-40)
[2018-09-13] MEDS: Aspirin E.C. 81 MG Tablet PO (09:51)
[2018-09-13] MEDS: Carvedilol 3.125 MG TABLET PO ×2 (09:51→22:13)
[2018-09-13] MEDS: Oseltamivir Phosphate 30 MG Capsule PO (11:17)
--- NOTE | 2018-09-13 12:32 | CON.PCM_ITS ---
Problem List (1) Chest pain at rest Status: Acute Reason for Consult Date of Consultation: 09/13/18 History of Present Illness: The patient is a 38 year old M with past medical history significant for obesity and end-stage renal disease on hemodialysis. He was driving yesterday when he experienced chest pain. Cording to him, it felt as a ton of bricks on his chest. No radiation to the arms, neck or jaw. Denies any associated shortness of breath. No diaphoresis. No palpitations. Pain is exacerbated with movement of his upper torso. He continues to have the discomfort though it has lessened in intensity. Denies any previous history of coronary artery disease. Denies any history of exertional angina. No orthopnea or PND. [] Past Medical History Allergies/Adverse Reactions: Allergies No Known Allergies Allergy (Verified 09/13/18 00:38) Home Medications: Ambulatory Orders Medication Instructions Recorded cinacalcet 60 mg tablet 60 mg PO MOWEFR 10/10/17 Carvedilol [Coreg (Beta Yossi)] 1 tab PO BID 01/08/18 Ferric Citrate [Auryxia] 3 tab PO TIDCM 05/15/18 Past Medical History (Chronic Problems): Chronic Problems (Last Reviewed 09/13/18 @ 05:00 by Anuel Abraham MD) Sleep apnea (Chronic) Lightheadedness (Chronic) Chronic pelvic pain in male (Chronic) Pelvic mass (Chronic) Hematuria (Chronic) Hearing loss (Chronic) in both ears Anemia of chronic disorder (Chronic) History of bacterial endocarditis (Chronic) Hypertension (Chronic) ESRD (end stage renal disease) (Chronic) Due to hypertension, On hemodialysis, TTS, followed by Dr. Goncalves Morbidly obese (Chronic) Sleep apnea (Chronic) 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 due to renal insufficiency (Chronic) Surgical History: herniorrhaphy, - - *Family History Maternal History Items: No pertinent history Smoking Status: Former smoker Review of Systems - Review of Systems General: Denies: Fever, Chills Cardiovascular: Reports: Chest Discomfort at Rest. Denies: Shortness of Breath, Shortness of Breath at Rest, Orthopnea, PND, Peripheral Edema Respiratory: Denies: Hemoptysis Neurological: Denies: History of TIA, History of CVA Subjectve: Comfortable. Lying flat in the bed. No apparent distress. Obese. Objective: Vital Signs Temp Pulse Resp BP Pulse Ox 97.6 F L 102 H 20 H 110/71 100 09/13/18 10:00 09/13/18 10:57 09/13/18 10:00 09/13/18 10:00 09/13/18 10:00 Oxygen Flow Rate (L/min) 2.5 Oxygen Delivery Method Nasal Cannula Weight: 133.7 kg Body Mass Index (BMI) 42.3 General: Awake, Alert, Oriented x 3, No Acute Distress HEENT: Atraumatic, Normocephalic Neck: Supple Chest Wall: - - Positive tenderness on palpation of anterior chest wall. Lungs: Clear to auscultation Cardiovascular: Regular Rhythm, Normal S1, Normal S2, No Rubs Abdomen: Bowel Sounds Present, Soft Extremities: No edema Neurological: No Focal Motor or Sensory Deficit 09/13/18 01:20: WBC 6.1, RBC 3.90 L, Hgb 11.1 L, Hct 35.8 L, MCV 91.8, MCH 28.5, MCHC 31.0 L, RDW 16.6 H, RDW Differential 54.5 H, Plt Count 172, MPV 11.3, Immature Gran % (Auto) 0.200, Neut % (Auto) 55.6, Lymph % (Auto) 25.4, [place] % (Auto) 16.2 H, Eos % (Auto) 2.3, Baso % (Auto) 0.3, Absolute Neuts (auto) 3.4, Total Counted Not Reportable 09/13/18 01:20: Sodium Cancelled, Potassium Cancelled, Chloride Cancelled, Carbon Dioxide Cancelled, Anion Gap Cancelled, BUN Cancelled, Creatinine Cancelled, Est GFR (MDRD) Af Amer Cancelled, Est GFR (MDRD) Non-Af Cancelled, BUN/Creatinine Ratio Cancelled, Glucose Cancelled, Calcium Cancelled, Troponin I Cancelled 09/13/18 01:20: D-Dimer Quant (PE/DVT) 1.44 H* 09/13/18 02:20: Sodium 136, Potassium 5.7 H, Chloride 99, Carbon Dioxide 26.0, Anion Gap 11, BUN 55 H, Creatinine 12.40 H*, Est GFR (MDRD) Af Amer 6 L, Est GFR (MDRD) Non-Af 5 L, BUN/Creatinine Ratio 4.4 L, Glucose 92, Calcium 8.6, Troponin I 0.154 H 12/16/18 03:15: Lactic Acid 1.0 09/13/18 06:35: B-Natriuretic Peptide 47.2 09/13/18 06:35: WBC 5.8, RBC 4.26 L, Hgb 11.8 L, Hct 39.0 L, MCV 91.5, MCH 27.7, MCHC 30.3 L, RDW 16.7 H, RDW Differential 54.9 H, Plt Count 176, MPV 11.1 09/13/18 06:35: Sodium 138, Potassium 5.4 H, Chloride 98, Carbon Dioxide 26.0, Anion Gap 14, BUN 55 H, Creatinine 12.90 H*, Est GFR (MDRD) Af Amer 6 L, Est GFR (MDRD) Non-Af 5 L, BUN/Creatinine Ratio 4.3 L, Glucose 85, Calcium 8.9, Total Bilirubin 0.50, Triglycerides 114, Cholesterol 149, LDL Cholesterol 85, VLDL Cholesterol 23, HDL Cholesterol 41 09/13/18 06:35: Troponin I 0.135 H 09/13/18 09:09: Troponin I 0.158 H Rhythm: Normal sinus rhythm. EKG: Normal sinus rhythm. Poor R wave progression across anterior leads but this could be related to his obesity and lead placement. ECHO: Stress Test: Cardiac Cath: PCI: CT Surgery: Holter monitor: EPS: PPM: CXR: Chest CT Scan: Assessment/Plan 1. Chest pain. Reproducible. Worsened with movement of upper torso. Consider musculoskeletal. Please also note that the patient is diagnosed with pneumonia on his chest x-ray. Doubt cardiac etiology. Troponin elevation without any significant upward or downward trend. Likely secondary to end-stage renal disease. 2. Patient however has risk factors for coronary artery disease. Will check a pharmacological stress test to rule out ischemia. 3. Check 2D echocardiogram. 4. Pneumonia. 5. End-stage renal disease on hemodialysis. 6. Obesity.
[2018-09-13] MEDS: Mag Hydrox/Al Hydrox/Simeth 30 ML UDC PO (14:29)
[2018-09-13 14:36] LABS: Erythrocyte Sedimentation Rate 92 mm/hr (0-15)
[2018-09-13 20:01] LABS: Rheumatoid Factor < 10.0 IU/mL (<15)
[2018-09-13] MEDS: predniSONE 20 MG Tablet 40 MG PO (22:12)
[2018-09-13] MEDS: Atorvastatin Calcium 20 MG Tablet PO (22:13)
--- NOTE | 2018-09-13 22:25 | EKG12_ITS ---
Test Reason : CP Blood Pressure : / mmHG Vent. Rate : 233 BPM Atrial Rate : 233 BPM P-R Int : 000 ms QRS Dur : 088 ms QT Int : 134 ms P-R-T Axes : 000 040 199 degrees QTc Int : 263 ms Junctional tachycardia Confirmed by SALMA STAHL, JACOBY ([id number]), mapping editor MIKI PAULINO ([id number] on 09/16/2018 3:57:04 PM Referred By: DR COPELAND Confirmed By:JACOBY MARSH MD
--- NOTE | 2018-09-13 23:11 | NURSING ---
EKG CORTEX TO DR OLIVER PER REQUEST
[2018-09-14] VITALS (13 sets, daily range): BP systolic 97–157; BP diastolic 53–75; PULSE 96–111; RESP 12–20; TEMP 36–37.1; O2SAT 96–100
--- NOTE | 2018-09-14 00:45 | NURSING ---
Pt c/o chest pain. Pt rates it a 7. Refuses the nitro. informed pt the reason why we take the nitro pt continues to refuse. pt argues with nurse. Attempted to make pt understand but at this time unable to. offered morphine and pt said yes
--- NOTE | 2018-09-14 00:57 | NURSING ---
Went to give pt the morphine but pt had to have a bowel movement and then will take it. Pt will call nurse
[2018-09-14] MEDS: Morphine 2 MG/ML Syringe 1 MG IV ×2 (01:09→23:01)
[2018-09-14] MEDS: 0.9% NaCl Peripheral Flush Adult/Peds IV ×2 (01:09→16:31)
--- NOTE | 2018-09-14 01:13 | NURSING ---
Pt on the phone at this time. pt given the morphine for chest pain.
--- NOTE | 2018-09-14 05:00 | EKG12_ITS ---
Test Reason : AM EKG Blood Pressure : / mmHG Vent. Rate : 142 BPM Atrial Rate : 105 BPM P-R Int : 000 ms QRS Dur : 068 ms QT Int : 326 ms P-R-T Axes : 000 110 041 degrees QTc Int : 501 ms Junctional tachycardia Right axis deviation Low voltage QRS Septal infarct , age undetermined Abnormal ECG When compared with ECG of 13-SEP-2018 22:55, MANUAL COMPARISON REQUIRED, DATA IS UNCONFIRMED Confirmed by SALMA STAHL, JACOBY ([id number]), editor at large MIKI PAULINO ([id number] on 09/16/2018 3:54:58 PM Referred By: WE[facility]ON Confirmed By:JACOBY MARSH MD
[2018-09-14] MEDS: Aspirin E.C. 81 MG Tablet PO (05:52)
[2018-09-14 06:29] LABS: Absolute Lymphocyte Count 0.66 X10^3/ul (0.83-4.51); Absolute Neutrophil Count 5.5 X10^3/uL (2.0-7.7); Basophil# 0.01 X10^3/uL; Basophil% 0.2 % (0-1); Eosinophil# 0.01 X10^3/uL; Eosinophils% 0.2 % (0-5); Hematocrit 38.1 % (40-54); Hemoglobin 11.5 g/dl (13.0-16.5); Lymphocyte # 0.66 X10^3/ul (4.0); Lymphocyte % 10.3 % (19-41); Mean Corp Hgb Conc 30.2 g/gl (32-36); Mean Corpuscular Hgb 27.6 pg (27.0-32.0); Mean Corpuscular Volume 91.4 fL (80-94); Mean Platelet Vol. 11.7 fl (6.2-12.0); Monocyte# 0.22 X10^3/uL; Monocyte% 3.4 % (0-10); Neutrophil # 5.52 X10^3/uL (2.7-7.7); Neutrophil % 85.7 % (47-70); Platelet Count 187 K/mm3 (150-450); RBC Distribution Width CV 16.6 % (11.6-14.6); RBC Distribution Width SD 54.3 fl (35.1-43.9); Red Blood Count 4.17 M/mm3 (4.6-6.2); White Blood Count 6.4 K/mm3 (4.4-11.0)
[2018-09-14 06:34] LABS: POSITIVE COUNT NO; POSITIVE DIFFERENTIAL NO; POSITIVE MORPHOLOGY NO
[2018-09-14 06:37] LABS: International Normalized Ratio 1.2; Prothrombin Time (Protime)PT. 14.8 SECONDS (11.7-14.9)
[2018-09-14 06:38] LABS: Partial Thromboplast Time 33.3 Seconds (24.1-36.2)
[2018-09-14 06:55] LABS: Vancomycin, Random Level 21.5 ug/mL (0.0-15.0)
[2018-09-14 07:05] LABS: Albumin, Serum 2.9 g/dL (3.2-5.0); BUN 72 mg/dL (7-18); BUN/Creat Ratio 4.8 RATIO (10-20); Calcium,Total 8.5 mg/dL (8.5-10.1); Chloride 101 mmol/L (98-107); EST Glomerular Filtration Rate 4 mL/min (>60); Est Glom Filt Rate - Afr Amer 5 mL/min (>60); Estimated Creatinine Clearance 7.08 ml/min; Glucose 105 mg/dL (74-106); Phosphorus 6.5 mg/dL (2.5-4.9); Sodium Level 138 mmol/L (136-145)
--- NOTE | 2018-09-14 07:24 | NURSING ---
STRESS DEPT NOTIFIED OF AM LABS
--- NOTE | 2018-09-14 12:26 | PCM.PROGNOTE ---
Patient Problems: Active and Suspected Problems (Last Reviewed 09/13/18 @ 05:00 by Anuel Abraham MD) HCAP (healthcare-associated pneumonia) (Acute) Chest pain at rest (Acute) Hyperkalemia (Acute) Chronic kidney disease-mineral and bone disorder (Acute) Subjective: All events of the past 24 hours were reviewed 1 of 2 blood cultures done in the emergency room is positive for gram-positive cocci in clusters PCR on the bacteria is negative for SA, enterococcus, Streptococcus, Listeria. Suspected contaminant. Repeat blood cultures ordered today. Influenza swab is positive for influenza B Afebrile since admission Vital signs are stable and he is 100% saturated on room air All lab was personally reviewed. White blood cell count is again within normal limits however the percentage of neutrophils is now 86%. Hemoglobin stable 11.5 and platelets are normal. Potassium is 7.0 today despite Kayexalate yesterday. Random vancomycin level is 21.5 today. Patient did receive vancomycin and Zosyn at admission. Antibiotics were discontinued yesterday because he was afebrile with a normal white blood cell count and his checks x-ray does not appear all that different from prior chest x-rays. He has rare cough. Continues to be afebrile. Vital signs are stable. He was seen by Dr. Griffin today and dialysis was done Continues to complain of chest pain and the only thing that seems to help his morphine sulfate. No relief with the GI cocktail, colchicine or prednisone. Stress test was put off until tomorrow because the potassium was 7.0 this a.m. echo was ordered for today but there is no report yet. Objective: GENERAL: alert, oriented X 3, Cooperative, NAD ORAL: moist mucosa, no mucosal lesions NECK: No JVD, supple, trachea midline LUNGS: CTA, symmetric chest expansion HEART: RRR, Normal S1 and S2, no rub, no gallop ABDOMEN: soft, NT, ND, BS present, no guarding with palpation, obese EXTREMITIES: mild 1+ edema - he is sitting in a chair with his legs dependent, no cyanosis, no calf tenderness SKIN: No rashes, no breakdown NEUROLOGIC: no focal neurologic deficits PSYCH: appropriate, normal affect, pleasant - Physical Exam Vital Signs Temp Pulse Resp BP Pulse Ox 98.7 F 98 16 135/74 H 100 09/14/18 11:45 09/14/18 11:45 09/14/18 11:45 09/14/18 11:45 09/14/18 11:45 Oxygen Flow Rate (L/min) 2 Oxygen Delivery Method Room Air Weight: 293 lb 6.964 oz Body Mass Index (BMI) 42.3 Intake and Output for Last 24 Hours 09/12/18 09/13/18 09/14/18 23:59 23:59 23:59 Intake Total 800 / 800 300 / 300 Balance 800 / 800 300 / 300 Microbiology Past 72 Hours 09/13/18 03:20 Blood Culture - Preliminary Blood Culture (Wb) - Arm Left 09/13/18 06:00 Influenza Types A,B Direct FA (GRETTA) - Final Mucosa - Nasopharyngeal Influenzae B Laboratory Tests Past 24 Hrs 09/13/18 09/13/18 09/13/18 01:20 09:09 09:09 WBC RBC Hgb Hct MCV MCH MCHC RDW RDW Differential Plt Count MPV Immature Gran % (Auto) Neut % (Auto) Lymph % (Auto) [place] % (Auto) Eos % (Auto) Baso % (Auto) Absolute Neuts (auto) Absolute Lymphs (auto) Total Counted ESR 92 H PT INR APTT Sodium Potassium Chloride Carbon Dioxide BUN Creatinine Estim Creat Clear Calc Est GFR (MDRD) Af Amer Est GFR (MDRD) Non-Af BUN/Creatinine Ratio Glucose Calcium Phosphorus C-React Prot Ext Range 40.40 H Albumin Random Vancomycin Rheumatoid Factor < 10.0 BETH Screen RAOUL-1 Antibody SS-A/Ro IgG Antibody SS-B/La IgG Antibody Sm ([place]) Antibody [employer] LEADER Antibody Scl-70 Scleroderma Ab Double Strand DNA Ab Centromere B Antibody 09/14/18 09/14/18 09/14/18 06:18 06:18 06:18 WBC RBC Hgb Hct MCV MCH MCHC RDW RDW Differential Plt Count MPV Immature Gran % (Auto) Neut % (Auto) Lymph % (Auto) [place] % (Auto) Eos % (Auto) Baso % (Auto) Absolute Neuts (auto) Absolute Lymphs (auto) Total Counted ESR PT INR APTT Sodium 138 Potassium 7.0 H* Chloride 101 Carbon Dioxide 25.0 BUN 72 H Creatinine 14.90 H* Estim Creat Clear Calc 7.08 Est GFR (MDRD) Af Amer 5 L Est GFR (MDRD) Non-Af 4 L BUN/Creatinine Ratio 4.8 L Glucose 105 Calcium 8.5 Phosphorus 6.5 H C-React Prot Ext Range Albumin 2.9 L Random Vancomycin 21.5 H Rheumatoid Factor BETH Screen Pending RAOUL-1 Antibody Pending SS-A/Ro IgG Antibody Pending SS-B/La IgG Antibody Pending Sm ([place]) Antibody Pending [employer] LEADER Antibody Pending Scl-70 Scleroderma Ab Pending Double Strand DNA Ab Pending Centromere B Antibody Pending 09/14/18 09/14/18 06:18 06:18 WBC 6.4 RBC 4.17 L Hgb 11.5 L Hct 38.1 L MCV 91.4 MCH 27.6 MCHC 30.2 L RDW 16.6 H RDW Differential 54.3 H Plt Count 187 MPV 11.7 Immature Gran % (Auto) 0.200 Neut % (Auto) 85.7 H Lymph % (Auto) 10.3 L [place] % (Auto) 3.4 Eos % (Auto) 0.2 Baso % (Auto) 0.2 Absolute Neuts (auto) 5.5 Absolute Lymphs (auto) 0.66 L Total Counted Not Reportable ESR PT 14.8 INR 1.2 APTT 33.3 Sodium Potassium Chloride Carbon Dioxide BUN Creatinine Estim Creat Clear Calc Est GFR (MDRD) Af Amer Est GFR (MDRD) Non-Af BUN/Creatinine Ratio Glucose Calcium Phosphorus C-React Prot Ext Range Albumin Random Vancomycin Rheumatoid Factor BETH Screen RAOUL-1 Antibody SS-A/Ro IgG Antibody SS-B/La IgG Antibody Sm ([place]) Antibody [employer] LEADER Antibody Scl-70 Scleroderma Ab Double Strand DNA Ab Centromere B Antibody Medical Necessity - Tobacco Use Smoking Status: Former smoker Assessment/Plan All Active Problems (Last Reviewed 09/13/18 @ 05:00 by Anuel Abraham MD) HCAP (healthcare-associated pneumonia) (Acute) Chest pain at rest (Acute) Hyperkalemia (Acute) Chronic kidney disease-mineral and bone disorder (Acute) Junctional tachycardia (Acute) Dyspnea (Acute) Clotted dialysis access (Acute) History of blood clots (Acute) Acute viral bronchitis (Acute) Chest pain, musculoskeletal (Acute) Chest pain (Acute) Impressions 1. Noncardiac chest pain-likely musculoskeletal secondary to influenza B 2. Influenza B 3. End-stage renal disease on hemodialysis-due to uncontrolled hypertension 4. Hyperkalemia 5. Gram-positive cocci in clusters in 1 of 2 blood cultures at admission likely due to contamination-PCR for staph aureus is negative 6. Morbid obesity 7. Obstructive sleep apnea 8. Chronic hematuria 9. Presbycusis 10. History of bacterial endocarditis 11. Hypertension 12. 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 due to renal insufficiency 13. Anemia of chronic renal failure 14. Elevated troponin-likely secondary to end-stage renal disease. It did not trend Repeat blood cultures today Start Tamiflu Discontinue vancomycin Recheck renal profile in the a.m. Possible discharge in the a.m. if hyperkalemia has resolved Code Visit Inpatient E&M: 47489 Subs Hosp L3
--- NOTE | 2018-09-14 15:50 | PCM.CONS.R ---
Problem List (1) Hyperkalemia Status: Acute (2) Chronic kidney disease-mineral and bone disorder Status: Acute (3) ESRD (end stage renal disease) Status: Chronic Comment: Due to hypertension, On hemodialysis, TTS, followed by Dr. Goncalves Consultation - Renal PCP/ Referring MD: Requesting physician: [] Primary care physician: Pawel Banda MD - History of Present Illness History of Present Illness: The patient is a 38 year old M ESRD on MWF HD schedule. Pt presented with pressure like chest pain. Chest xray showed right lung infiltrate . Influenza B is + one of BC bottle is positive for G+ cocci. Cardiology is following for chest pain work up Renal team was consulted for ESRD care. HD today was arranged for today . Pt was seen during HD session Pt has left femoral vein tunneled cath. Pt's LUE AVF clotted 2 weeks ago and he is supposed to follow with [facility] this week for declotting Pt denied any compliant today ROS: 12 systems review is negative today[] - Allergies Allergies: Allergies No Known Allergies Allergy (Verified 09/13/18 00:38) - Current Medications Current Medications: Current Medications Aspirin (Ecotrin) 81 mg PO DAILY@0800 [facility] Last Admin: 09/14/18 05:52 Dose: 81 mg Atorvastatin Calcium (Lipitor) 20 mg PO QHS [facility] Last Admin: 09/13/18 22:13 Dose: 20 mg Carvedilol (Coreg) 3.125 mg PO BID [facility] Last Admin: 09/13/18 22:13 Dose: 3.1249 mg Cinacalcet (Sensipar) [facility] Colchicine (Colchicine) 0.6 mg PO DAILY [facility] Last Admin: 09/13/18 22:12 Dose: 0.6 mg Heparin Sodium (Porcine) (Heparin Na) 5,000 unit SC Q8 [facility] Last Admin: 09/13/18 23:27 Dose: Not Given Morphine Sulfate () 1 mg IV Q4H PRN PRN PRN Reason: SEVERE PAIN (6-10/10) Last Admin: 09/14/18 01:09 Dose: 1 mg Nitroglycerin (Nitrostat) 0.4 mg SUBLINGUAL Q5M PRN PRN Reason: CHEST PAIN Oseltamivir Phosphate (Tamiflu) 0 mg PO [facility] [place] Stop: 09/17/18 10:01 Last Admin: 09/13/18 11:17 Dose: 30 mg Oxycodone HCl (Oxyir) 5 mg PO BID PRN PRN PRN Reason: pain Last Admin: 09/13/18 22:11 Dose: 5 mg Prednisone () 40 mg PO DAILY@0800 [facility] Sevelamer Carbonate (Renvela) 800 mg PO TIDCM [facility] Sodium Chloride () 5 - 15 ml IV UD PRN PRN Reason: SALINE FLUSH Last Admin: 09/14/18 01:09 Dose: 10 ml - Past Medical History Past Medical History (Chronic Problems): Chronic Problems (Last Reviewed 09/13/18 @ 05:00 by Anuel Abraham MD) Sleep apnea (Chronic) Lightheadedness (Chronic) Chronic pelvic pain in male (Chronic) Pelvic mass (Chronic) Hematuria (Chronic) Hearing loss (Chronic) in both ears Anemia of chronic disorder (Chronic) History of bacterial endocarditis (Chronic) Hypertension (Chronic) ESRD (end stage renal disease) (Chronic) Due to hypertension, On hemodialysis, TTS, followed by Dr. Goncalves Morbidly obese (Chronic) Sleep apnea (Chronic) 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 due to renal insufficiency (Chronic) - Past Surgical History Surgical History: herniorrhaphy, - - Social History Smoking Status: Former smoker - Family History Maternal History Items: No pertinent history Patient Problems: Active and Suspected Problems (Last Reviewed 09/13/18 @ 05:00 by Anuel Abraham MD) HCAP (healthcare-associated pneumonia) (Acute) Chest pain at rest (Acute) Hyperkalemia (Acute) Chronic kidney disease-mineral and bone disorder (Acute) - Physical Exam General: Alert, Oriented x3 HEENT: Atraumatic Oral: Moist Mucosa Neck: Supple, No JVD Lungs: Clear to auscultation, Normal air movement Cardiovascular: Regular rate, Regular Rhythm, Normal S1, Normal S2 Abdomen: Bowel Sounds Present, Soft, Non Tender Extremities: No clubbing, No cyanosis Skin: No rashes Musculoskeletal: No Tenderness to Palpation of Joints or Extremities Lymphatic: No Cervical, Supraclavicular, or Inguinal Adenopathy Neurological: Cranial nerves II-XII grossly intact, Neuro grossly intact Psych/Mental Status: Normal Affect Vital Signs Temp Pulse Resp BP Pulse Ox 98.7 F 111 H 16 135/74 H 100 09/14/18 11:45 09/14/18 15:09 09/14/18 11:45 09/14/18 11:45 09/14/18 11:45 Oxygen Flow Rate (L/min) 2 Oxygen Delivery Method Room Air Weight: 133.1 kg Body Mass Index (BMI) 42.3 Intake and Output for Last 24 Hours 09/12/18 09/13/18 09/14/18 23:59 23:59 23:59 Intake Total 800 / 800 300 / 300 Balance 800 / 800 300 / 300 Microbiology Past 72 Hours 09/13/18 03:20 Bacteria Detection (PCR) - Final Blood Culture (Wb) - Arm Left Blood Culture - Preliminary 09/13/18 06:00 Influenza Types A,B Direct FA (GRETTA) - Final Mucosa - Nasopharyngeal Influenzae B Laboratory Tests Past 24 Hrs 09/13/18 09/14/18 09/14/18 09:09 06:18 06:18 WBC RBC Hgb Hct MCV MCH MCHC RDW RDW Differential Plt Count MPV Immature Gran % (Auto) Neut % (Auto) Lymph % (Auto) [place] % (Auto) Eos % (Auto) Baso % (Auto) Absolute Neuts (auto) Absolute Lymphs (auto) Total Counted PT INR APTT Sodium 138 Potassium 7.0 H* Chloride 101 Carbon Dioxide 25.0 BUN 72 H Creatinine 14.90 H* Estim Creat Clear Calc 7.08 Est GFR (MDRD) Af Amer 5 L Est GFR (MDRD) Non-Af 4 L BUN/Creatinine Ratio 4.8 L Glucose 105 Calcium 8.5 Phosphorus 6.5 H Albumin 2.9 L Random Vancomycin 21.5 H Rheumatoid Factor < 10.0 BETH Screen RAOUL-1 Antibody SS-A/Ro IgG Antibody SS-B/La IgG Antibody Sm (Grover) Antibody NEUROPHYSIOLOGY TECH Antibody Scl-70 Scleroderma Ab Double Strand DNA Ab Centromere B Antibody 09/14/18 09/14/18 09/14/18 06:18 06:18 06:18 WBC 6.4 RBC 4.17 L Hgb 11.5 L Hct 38.1 L MCV 91.4 MCH 27.6 MCHC 30.2 L RDW 16.6 H RDW Differential 54.3 H Plt Count 187 MPV 11.7 Immature Gran % (Auto) 0.200 Neut % (Auto) 85.7 H Lymph % (Auto) 10.3 L [place] % (Auto) 3.4 Eos % (Auto) 0.2 Baso % (Auto) 0.2 Absolute Neuts (auto) 5.5 Absolute Lymphs (auto) 0.66 L Total Counted Not Reportable PT 14.8 INR 1.2 APTT 33.3 Sodium Potassium Chloride Carbon Dioxide BUN Creatinine Estim Creat Clear Calc Est GFR (MDRD) Af Amer Est GFR (MDRD) Non-Af BUN/Creatinine Ratio Glucose Calcium Phosphorus Albumin Random Vancomycin Rheumatoid Factor BETH Screen Pending RAOUL-1 Antibody Pending SS-A/Ro IgG Antibody Pending SS-B/La IgG Antibody Pending Sm (Grover) Antibody Pending NEUROPHYSIOLOGY TECH Antibody Pending Scl-70 Scleroderma Ab Pending Double Strand DNA Ab Pending Centromere B Antibody Pending Assessment/Plan All Active Problems (Last Reviewed 09/13/18 @ 05:00 by Anuel Abraham MD) HCAP (healthcare-associated pneumonia) (Acute) Chest pain at rest (Acute) Hyperkalemia (Acute) Chronic kidney disease-mineral and bone disorder (Acute) Junctional tachycardia (Acute) Dyspnea (Acute) Clotted dialysis access (Acute) History of blood clots (Acute) Acute viral bronchitis (Acute) Chest pain, musculoskeletal (Acute) Chest pain (Acute) 1- ESRD on MWF. Pt goes to [facility] HD unit. HD session today : BQ 300 BQ 600 UF 4 L HD access : left femoral vein TC 2- hyperkalemia: K is 7.0. HD today with 1k dialysate for the 1st hour then 2K Check K after HD 3- HTN: BP is well controlled 4- BMD: continue sevelamer and sensipar. check P/Ca in am 5- Influenza. On tamiflu 6- Chest pain. work up as per cardiology service. going for stress test tomorrow 7- Bacteremia: one bottle is positive. please repeat it Renal team will continue to follow IZZY MUNGUIA MD
--- NOTE | 2018-09-14 15:54 | CON.PCM_ITS ---
Problem List (1) Hyperkalemia Status: Acute (2) Chronic kidney disease-mineral and bone disorder Status: Acute (3) ESRD (end stage renal disease) Status: Chronic Comment: Due to hypertension, On hemodialysis, TTS, followed by Dr. Goncalves Consultation - Renal PCP/ Referring MD: Requesting physician: [] Primary care physician: Pawel Banda MD - History of Present Illness History of Present Illness: The patient is a 38 year old M ESRD on MWF HD schedule. Pt presented with pressu re like chest pain. Chest xray showed right lung infiltrate . Influenza B is + one of BC bottle is positive for G+ cocci. Cardiology is following for chest pain work up Renal team was consulted for ESRD care. HD today was arranged for today . Pt was seen during HD session Pt has left femoral vein tunneled cath. Pt's LUE AVF clotted 2 weeks ago and he is supposed to follow with [facility] this week for declotting Pt denied any compliant today ROS: 12 systems review is negative today[] - Allergies Allergies: Allergies No Known Allergies Allergy (Verified 09/13/18 00:38) - Current Medications Current Medications: Current Medications Aspirin (Ecotrin) 81 mg PO DAILY@0800 [facility] Last Admin: 09/14/18 05:52 Dose: 81 mg Atorvastatin Calcium (Lipitor) 20 mg PO QHS [facility] Last Admin: 09/13/18 22:13 Dose: 20 mg Carvedilol (Coreg) 3.125 mg PO BID [facility] Last Admin: 09/13/18 22:13 Dose: 3.1249 mg Cinacalcet (Sensipar) 60 mg PO [facility] Colchicine (Colchicine) 0.6 mg PO DAILY [facility] Last Admin: 09/13/18 22:12 Dose: 0.6 mg Heparin Sodium (Porcine) (Heparin Na) 5,000 unit SC Q8 [facility] Last Admin: 09/13/18 23:27 Dose: Not Given Morphine Sulfate () 1 mg IV Q4H PRN PRN PRN Reason: SEVERE PAIN (6-10/10) Last Admin: 09/14/18 01:09 Dose: 1 mg Nitroglycerin (Nitrostat) 0.4 mg SUBLINGUAL Q5M PRN PRN Reason: CHEST PAIN Oseltamivir Phosphate (Tamiflu) 0 mg PO [facility] [place] Stop: 09/17/18 10:01 Last Admin: 09/13/18 11:17 Dose: 30 mg Oxycodone HCl (Oxyir) 5 mg PO BID PRN PRN PRN Reason: pain Last Admin: 09/13/18 22:11 Dose: 5 mg Prednisone () 40 mg PO DAILY@0800 [facility] Sevelamer Carbonate (Renvela) 800 mg PO TIDCM [facility] Sodium Chloride () 5 - 15 ml IV UD PRN PRN Reason: SALINE FLUSH Last Admin: 09/14/18 01:09 Dose: 10 ml - Past Medical History Past Medical History (Chronic Problems): Chronic Problems (Last Reviewed 09/13/18 @ 05:00 by Anuel Abraham MD) Sleep apnea (Chronic) Lightheadedness (Chronic) Chronic pelvic pain in male (Chronic) Pelvic mass (Chronic) Hematuria (Chronic) Hearing loss (Chronic) in both ears Anemia of chronic disorder (Chronic) History of bacterial endocarditis (Chronic) Hypertension (Chronic) ESRD (end stage renal disease) (Chronic) Due to hypertension, On hemodialysis, TTS, followed by Dr. Goncalves Morbidly obese (Chronic) Sleep apnea (Chronic) 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 due to renal insufficiency (Chronic) - Past Surgical History Surgical History: herniorrhaphy, - - Social History Smoking Status: Former smoker - Family History Maternal History Items: No pertinent history Patient Problems: Active and Suspected Problems (Last Reviewed 09/13/18 @ 05:00 by Anuel Abraham MD) HCAP (healthcare-associated pneumonia) (Acute) Chest pain at rest (Acute) Hyperkalemia (Acute) Chronic kidney disease-mineral and bone disorder (Acute) - Physical Exam General: Alert, Oriented x3 HEENT: Atraumatic Oral: Moist Mucosa Neck: Supple, No JVD Lungs: Clear to auscultation, Normal air movement Cardiovascular: Regular rate, Regular Rhythm, Normal S1, Normal S2 Abdomen: Bowel Sounds Present, Soft, Non Tender Extremities: No clubbing, No cyanosis Skin: No rashes Musculoskeletal: No Tenderness to Palpation of Joints or Extremities Lymphatic: No Cervical, Supraclavicular, or Inguinal Adenopathy Neurological: Cranial nerves II-XII grossly intact, Neuro grossly intact Psych/Mental Status: Normal Affect Vital Signs Temp Pulse Resp BP Pulse Ox 98.7 F 111 H 16 135/74 H 100 09/14/18 11:45 09/14/18 15:09 09/14/18 11:45 09/14/18 11:45 09/14/18 11:45 Oxygen Flow Rate (L/min) 2 Oxygen Delivery Method Room Air Weight: 133.1 kg Body Mass Index (BMI) 42.3 Intake and Output for Last 24 Hours 09/12/18 09/13/18 09/14/18 23:59 23:59 23:59 Intake Total 800 / 800 300 / 300 Balance 800 / 800 300 / 300 Microbiology Past 72 Hours 09/13/18 03:20 Bacteria Detection (PCR) - Final Blood Culture (Wb) - Arm Left Blood Culture - Preliminary 09/13/18 06:00 Influenza Types A,B Direct FA (GRETTA) - Final Mucosa - Nasopharyngeal Influenzae B Laboratory Tests Past 24 Hrs 09/13/18 09/14/18 09/14/18 09:09 06:18 06:18 WBC RBC Hgb Hct MCV MCH MCHC RDW RDW Differential Plt Count MPV Immature Gran % (Auto) Neut % (Auto) Lymph % (Auto) [place] % (Auto) Eos % (Auto) Baso % (Auto) Absolute Neuts (auto) Absolute Lymphs (auto) Total Counted PT INR APTT Sodium 138 Potassium 7.0 H* Chloride 101 Carbon Dioxide 25.0 BUN 72 H Creatinine 14.90 H* Estim Creat Clear Calc 7.08 Est GFR (MDRD) Af Amer 5 L Est GFR (MDRD) Non-Af 4 L BUN/Creatinine Ratio 4.8 L Glucose 105 Calcium 8.5 Phosphorus 6.5 H Albumin 2.9 L Random Vancomycin 21.5 H Rheumatoid Factor < 10.0 BETH Screen RAOUL-1 Antibody SS-A/Ro IgG Antibody SS-B/La IgG Antibody Sm (Grover) Antibody LICENSED NUCLEAR OPERATOR Antibody Scl-70 Scleroderma Ab Double Strand DNA Ab Centromere B Antibody 09/14/18 09/14/18 09/14/18 06:18 06:18 06:18 WBC 6.4 RBC 4.17 L Hgb 11.5 L Hct 38.1 L MCV 91.4 MCH 27.6 MCHC 30.2 L RDW 16.6 H RDW Differential 54.3 H Plt Count 187 MPV 11.7 Immature Gran % (Auto) 0.200 Neut % (Auto) 85.7 H Lymph % (Auto) 10.3 L [place] % (Auto) 3.4 Eos % (Auto) 0.2 Baso % (Auto) 0.2 Absolute Neuts (auto) 5.5 Absolute Lymphs (auto) 0.66 L Total Counted Not Reportable PT 14.8 INR 1.2 APTT 33.3 Sodium Potassium Chloride Carbon Dioxide BUN Creatinine Estim Creat Clear Calc Est GFR (MDRD) Af Amer Est GFR (MDRD) Non-Af BUN/Creatinine Ratio Glucose Calcium Phosphorus Albumin Random Vancomycin Rheumatoid Factor BETH Screen Pending RAOUL-1 Antibody Pending SS-A/Ro IgG Antibody Pending SS-B/La IgG Antibody Pending Sm (Grover) Antibody Pending LICENSED NUCLEAR OPERATOR Antibody Pending Scl-70 Scleroderma Ab Pending Double Strand DNA Ab Pending Centromere B Antibody Pending Assessment/Plan All Active Problems (Last Reviewed 09/13/18 @ 05:00 by Anuel Abraham MD) HCAP (healthcare-associated pneumonia) (Acute) Chest pain at rest (Acute) Hyperkalemia (Acute) Chronic kidney disease-mineral and bone disorder (Acute) Junctional tachycardia (Acute) Dyspnea (Acute) Clotted dialysis access (Acute) History of blood clots (Acute) Acute viral bronchitis (Acute) Chest pain, musculoskeletal (Acute) Chest pain (Acute) 1- ESRD on MWF. Pt goes to [facility] HD unit. HD session today : BQ 300 BQ 600 UF 4 L HD access : left femoral vein TC 2- hyperkalemia: K is 7.0. HD today with 1k dialysate for the 1st hour then 2K Check K after HD 3- HTN: BP is well controlled 4- BMD: continue sevelamer and sensipar. check P/Ca in am 5- Influenza. On tamiflu 6- Chest pain. work up as per cardiology service. going for stress test tomorrow 7- Bacteremia: one bottle is positive. please repeat it Renal team will continue to follow IZZY MUNGUIA MD
--- NOTE | 2018-09-14 16:18 | DIALYSIS ---
hemodialysis x 4hrs 45min completed. Access via left femoral HD cath. UF 4000ml. Max BFR 300. Dr. Griffin aware. pt stable post tx. see HD flowsheet on chart.
[2018-09-14] MEDS: predniSONE 20 MG Tablet 40 MG PO (16:27)
[2018-09-14] MEDS: SEVELAMER CARBONATE 800 MG TABLET PO (16:27)
[2018-09-14] MEDS: Oseltamivir Phosphate 30 MG Capsule PO (16:30)
[2018-09-14] MEDS: Carvedilol 3.125 MG TABLET PO ×2 (16:30→21:17)
[2018-09-14] MEDS: Atorvastatin Calcium 20 MG Tablet PO (21:17)
[2018-09-14] MEDS: oxyCODONE 5 MG Tablet PO (21:18)
[2018-09-14] MEDS: Heparin Injection (Vial) 5,000 UNIT/ML VIAL 5000 UNIT SC (21:18)
[2018-09-15] VITALS (10 sets, daily range): BP systolic 93–110; BP diastolic 54–68; PULSE 78–107; RESP 16–18; TEMP 36.1–36.6; O2SAT 96–100
[2018-09-15] MEDS: Aspirin E.C. 81 MG Tablet PO (05:17)
[2018-09-15 06:28] LABS: BUN 54 mg/dL (7-18); BUN/Creat Ratio 4.7 RATIO (10-20); Calcium,Total 8.8 mg/dL (8.5-10.1); Chloride 95 mmol/L (98-107); EST Glomerular Filtration Rate 5 mL/min (>60); Est Glom Filt Rate - Afr Amer 7 mL/min (>60); Estimated Creatinine Clearance 9.25 ml/min; Glucose 121 mg/dL (74-106); Phosphorus 7.4 mg/dL (2.5-4.9); Potassium 5.9 mmol/L (3.5-5.1); Sodium Level 133 mmol/L (136-145)
--- NOTE | 2018-09-15 12:22 | STRESSREP ---
Stress Test Report Pharmacologic myocardial perfusion stress test. 38-year-old man with a history of abnormal cardiac enzymes. History of renal failure. Stress protocol: Resting EKG demonstrates sinus rhythm with a rate of 76 bpm first-degree AV block is present. Poor R wave progression is noted. 0.4 mg of regadenoson was infused per usual protocol followed by rapid intravenous saline flush injection continuous EKG monitoring was performed. Patient maintained sinus rhythm throughout the recording. The maximum heart rate attained was 115 bpm which appeared to be a junctional tachycardia though sinus tachycardia cannot be completely excluded with a first-degree AV block. The maximum heart rate was 62 bpm. The maximum workload was 1 metabolic equivalent. The resting blood pressure 126/81 with a final blood pressure 134/78. At rest and during infusion there were no ST or T wave changes noted suggest ischemia. Myocardial perfusion protocol. 14.8 mCi of technetium 99m sestamibi was injected at rest. 0.4 mg of regadenoson was infused per usual protocol. At peak infusion 44.7 mCi of technetium 99m sestamibi was injected stress images were obtained stress and rest images were reconstructed and compared in the short axis vertical and horizontal long axis. Gated images were also obtained next Perfusion SPECT analysis: Review of the stress images demonstrate normal uptake of tracer noted in all areas of the myocardium. The resting images similarly demonstrate normal uptake of tracer noted in all areas of myocardium. No areas of reversibility were noted. Gated SPECT analysis: The gated ejection fraction is noted to be 80%. Conclusion: Normal pharmacologic myocardial perfusion stress test. Preserved ejection fraction.
[2018-09-15] MEDS: Cinacalcet HCl 30 MG Tablet 60 MG PO (12:36)
[2018-09-15] MEDS: Oseltamivir Phosphate 30 MG Capsule PO (12:36)
[2018-09-15] MEDS: Carvedilol 3.125 MG TABLET PO (12:36)
[2018-09-15] MEDS: SEVELAMER CARBONATE 800 MG TABLET PO ×2 (12:37→15:40)
--- NOTE | 2018-09-15 13:04 | CASEMGMT ---
RACHEL PARNELL ASSESSMENT Face to Face with patient for initial transition planning/care coordination assessment. RACHEL PARNELL introduced self and role at [facility]. Pt voices understanding and consents to assessment at this time. Pt sitting up in recliner chair, in no distress at this time. Pt is A/O at this time and answers all questions appropriately. Care providers, pharmacy, and demographics verified/updated at this time. PCP: [facility]: Nora. Goes to [facility] for Dialysis MWF. Chair time 0710. Preferred Pharmacy: [facility], [facility] Retail pharmacy day of discharge only. Insurance: [facility]. has just applied for additional coverage and it is still processing. Prescription Benefit: [employer] Living Will/HPOA: does not have LW or HCPOA . Interested in more information and informed if he would like to talk with SW to have paperwork completed while he is here to ask for Social Work to come talk to him. Provided information on advanced directives and given Social Service rac card with number to call if chooses in the future to utilize [facility] social work for advanced directive completion. Educated patient that, if patient so chooses, can come back to [facility] and meet with a SW as an outpatient to complete health care advanced directives. Patient expresses understanding. LNOK: , [place] Living Arrangements: Lives with [place] and 4-yr-old son Transportation: Pt states drives self and states no transportation concerns at this time. also drives. DME/HHC: Has CPAP. Uses no other DME and denies needs. Pt wishes to return home and states has no concerns with going home at time of discharge. Pt states does not smoke or drink ETOH. Pt voices no further concerns/needs at this time. Advised pt to ask for CM if any further questions/concerns/needs arise. Voices understanding. Plan: Home. Sandra KENNEDY RN, CM
--- NOTE | 2018-09-15 13:56 | EKG12_ITS ---
Test Reason : ADMIT Blood Pressure : / mmHG Vent. Rate : 119 BPM Atrial Rate : 119 BPM P-R Int : 336 ms QRS Dur : 074 ms QT Int : 304 ms P-R-T Axes : 000 110 061 degrees QTc Int : 427 ms Sinus tachycardia with 1st degree A-V block with occasional and consecutive Premature ventricular com plexes Right axis deviation Pulmonary disease pattern Septal infarct , age undetermined Abnormal ECG When compared with ECG of 13-SEP-2018 00:41, MANUAL COMPARISON REQUIRED, DATA IS UNCONFIRMED Confirmed by SALMA STAHL, JACOBY ([id number]), digital editor MIKI PAULINO ([id number]) on 09/16/2018 3:57:47 PM Referred By: CARIN Confirmed By:JACOBY MARSH MD
[2018-09-15] MEDS: Morphine 2 MG/ML Syringe 1 MG IV ×2 (15:40→21:30)
--- NOTE | 2018-09-15 19:30 | PCM.PROGNOTE ---
Patient Problems: Active and Suspected Problems (Last Reviewed 09/13/18 @ 05:00 by Anuel Abraham MD) HCAP (healthcare-associated pneumonia) (Acute) Chest pain at rest (Acute) Hyperkalemia (Acute) Chronic kidney disease-mineral and bone disorder (Acute) Subjective: All events of the past 24 hours of been reviewed. He is afebrile with stable vital signs. Potassium remains increased to 5.9 despite dialysis on 09/14/2018. BUN is 54 with a creatinine of 11.4. Repeat blood cultures done 09/14/2018 have no growth to date. Nuclear stress test was negative for ischemia. Echocardiogram shows normal left ventricular size with severe concentric left ventricular hypertrophy and mild TR. There were no vegetations observed. Objective: GENERAL: alert, oriented X 3, Cooperative, NAD ORAL: moist mucosa, no mucosal lesions NECK: No JVD, supple, trachea midline LUNGS: CTA, symmetric chest expansion HEART: RRR, Normal S1 and S2, no rub, no gallop ABDOMEN: soft, NT, ND, BS present, no guarding with palpation, obese EXTREMITIES: mild 1+ edema - he is sitting in a chair with his legs dependent, no cyanosis, no calf tenderness SKIN: No rashes, no breakdown NEUROLOGIC: no focal neurologic deficits PSYCH: appropriate, normal affect, pleasant - Physical Exam Vital Signs Temp Pulse Resp BP Pulse Ox 97 F L 99 18 98/63 100 09/15/18 15:00 09/15/18 18:49 09/15/18 15:00 09/15/18 15:00 09/15/18 15:00 Oxygen Flow Rate (L/min) 2 Oxygen Delivery Method Room Air Weight: 298 lb 8.094 oz Body Mass Index (BMI) 42.3 Intake and Output for Last 24 Hours 09/13/18 09/14/18 09/15/18 23:59 23:59 23:59 Intake Total 800 / 800 780 / 780 2114 Output Total 8000 / 8000 Balance 800 / 800 -7220 / -7220 2114 Microbiology Past 72 Hours 09/13/18 03:15 Blood Culture - Preliminary Blood Culture (Wb) - Arm Right No growth in 48 hours. 09/13/18 03:20 Bacteria Detection (PCR) - Final Blood Culture (Wb) - Arm Left Blood Culture - Preliminary Gram Positive Cocci 09/13/18 06:00 Influenza Types A,B Direct FA (GRETTA) - Final Mucosa - Nasopharyngeal Influenzae B Laboratory Tests Past 24 Hrs 09/15/18 05:25 Sodium 133 L Potassium 5.9 H Chloride 95 L Carbon Dioxide 27.0 BUN 54 H Creatinine 11.40 H* Estim Creat Clear Calc 9.25 Est GFR (MDRD) Af Amer 7 L Est GFR (MDRD) Non-Af 5 L BUN/Creatinine Ratio 4.7 L Glucose 121 H Calcium 8.8 Phosphorus 7.4 H Albumin 3.0 L Medical Necessity - Tobacco Use Smoking Status: Former smoker Assessment/Plan All Active Problems (Last Reviewed 09/13/18 @ 05:00 by Anuel Abraham MD) HCAP (healthcare-associated pneumonia) (Acute) Chest pain at rest (Acute) Hyperkalemia (Acute) Chronic kidney disease-mineral and bone disorder (Acute) Junctional tachycardia (Acute) Dyspnea (Acute) Clotted dialysis access (Acute) History of blood clots (Acute) Acute viral bronchitis (Acute) Chest pain, musculoskeletal (Acute) Chest pain (Acute) Impressions 1. Noncardiac chest pain-likely musculoskeletal secondary to influenza B 2. Influenza B 3. End-stage renal disease on hemodialysis-due to uncontrolled hypertension 4. Hyperkalemia 5. Gram-positive cocci in clusters in 1 of 2 blood cultures at admission likely due to contamination-PCR for staph aureus is negative 6. Morbid obesity 7. Obstructive sleep apnea 8. Chronic hematuria 9. Presbycusis 10. History of bacterial endocarditis 11. Hypertension 12. 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 due to renal insufficiency 13. Anemia of chronic renal failure 14. Elevated troponin-likely secondary to end-stage renal disease. It did not trend Repeat blood cultures today Start Tamiflu Discontinue vancomycin Recheck renal profile in the a.m. Possible discharge in the a.m. if hyperkalemia has resolved Add potassium and phosphorus restriction to his diet
--- NOTE | 2018-09-15 20:55 | EKG12_ITS ---
Test Reason : CHEST PAIN Blood Pressure : / mmHG Vent. Rate : 091 BPM Atrial Rate : 091 BPM P-R Int : 304 ms QRS Dur : 066 ms QT Int : 344 ms P-R-T Axes : 071 111 060 degrees QTc Int : 423 ms Sinus rhythm with 1st degree A-V block Right axis deviation Septal infarct , age undetermined Abnormal ECG When compared with ECG of 15-SEP-2018 14:06, MANUAL COMPARISON REQUIRED, DATA IS UNCONFIRMED Confirmed by SALMA STAHL, JACOBY ([id number]), newspaper editor managing MIKI PAULINO ([id number]) on 09/18/2018 2:06:41 PM Referred By: [facility] Confirmed By:JACOBY MARSH MD
[2018-09-15] MEDS: 0.9% NaCl Peripheral Flush Adult/Peds IV ×2 (21:30→21:31)
[2018-09-15] MEDS: Heparin Injection (Vial) 5,000 UNIT/ML VIAL 5000 UNIT SC (21:49)
[2018-09-15] MEDS: Atorvastatin Calcium 20 MG Tablet PO (21:49)
[2018-09-16] VITALS (7 sets, daily range): BP systolic 104–111; BP diastolic 56–58; PULSE 94–102; RESP 17–18; TEMP 36.1–36.7; O2SAT 95–100
[2018-09-16] MEDS: oxyCODONE 5 MG Tablet PO (00:12)
[2018-09-16] MEDS: Heparin Injection (Vial) 5,000 UNIT/ML VIAL 5000 UNIT SC (05:55)
[2018-09-16] MEDS: SEVELAMER CARBONATE 800 MG TABLET PO (08:39)
[2018-09-16] MEDS: Carvedilol 3.125 MG TABLET PO (08:39)
[2018-09-16] MEDS: Aspirin E.C. 81 MG Tablet PO (08:40)
[2018-09-16 08:43] LABS: Albumin, Serum 2.8 g/dL (3.2-5.0); BUN 74 mg/dL (7-18); BUN/Creat Ratio 5.4 RATIO (10-20); Calcium,Total 8.2 mg/dL (8.5-10.1); Chloride 98 mmol/L (98-107); EST Glomerular Filtration Rate 4 mL/min (>60); Est Glom Filt Rate - Afr Amer 5 mL/min (>60); Estimated Creatinine Clearance 7.64 ml/min; Glucose 93 mg/dL (74-106); Phosphorus 10.1 mg/dL (2.5-4.9); Potassium 5.3 mmol/L (3.5-5.1); Sodium Level 136 mmol/L (136-145)
--- NOTE | 2018-09-16 08:43 | DCINST_ITS ---
- Discharge Diagnoses Current Active Problems: Current Active and Chronic Problems (Last Reviewed 09/13/18 @ 05:00 by Anuel Abraham MD) HCAP (healthcare-associated pneumonia) (Acute) Chest pain at rest (Acute) Hyperkalemia (Acute) Chronic kidney disease-mineral and bone disorder (Acute) You will use the following diet at home:: Renal (restricted protein/sodium) Your food should be the consistency of: Regular Your liquids should be the consistency of: Regular/Thin Discharge Activity: Return to Normal Activity Call your doctor if you observe: Fever of 101 or Higher, Shortness of breath, Uncontrolled pain, - - increasing cough Additional Instructions: You have the Flu. You will take Tamiflu after dialysis until the tablets are all gone. I believe that the chest pain is coming from the clotted fistula. The veins in your chest are all dilated because of this and you can see them through your skin. I think this will improve after the clot is removed. In the meantime I am giving you a Prescription for oxycodone to help with the pain. Pending Tests on Discharge: Final on Blood cultures drawn 09/14/18. 1 of 2 done at admisison grew Micrococcus. Allergies/Adverse Reactions: Allergies No Known Allergies Allergy (Verified 09/13/18 00:38) Medications to take at Discharge cinacalcet 60 mg tablet 60 mg PO MOWEFR 10/10/17 Carvedilol [Coreg (Beta Yossi)] 1 tab PO BID 01/08/18 Ferric Citrate [Auryxia] 3 tab PO TIDCM 05/15/18 Oseltamivir Phosphate [Tamiflu] 30 tab PO UD #3 cap 09/16/18 Oxycodone [Oxyir] 5 - 10 mg PO Q6H PRN PRN 7 Days #40 tab 09/16/18 The following prescriptions were given: Oxycodone [Oxyir] 5 - 10 mg PO Q6H PRN PRN 7 Days #40 tab PRN Reason: pain Oseltamivir Phosphate [Tamiflu] 30 tab PO UD #3 cap Primary Care Physician: Pawel Banda MD [Primary Care Provider] - Please follow up with your Primary Care Physician in: 5-7 days Test Results: Test results from this visit will be discussed in further detail at your follow- up appointment, if applicable. Proposed Discharge Date: 09/16/18
--- NOTE | 2018-09-16 08:56 | DS.PCM_ITS ---
Discharge Date and Diagnosis Date of Admission: 09/13/18 Date of Discharge: 09/16/18 - Primary Discharge Diagnosis Active and Suspected Problems (Last Reviewed 09/13/18 @ 05:00 by Anuel Abraham MD) viral PNA due to Influenza B Chest pain at rest (Acute) - suspect due to vasodilation of the chest wall related to a clotted AV fistula Hyperkalemia (Acute) - Secondary Discharge Diagnosis Chronic Problems (Last Reviewed 09/13/18 @ 05:00 by Anuel Abraham MD) Sleep apnea (Chronic) Chronic pelvic pain in male (Chronic) Pelvic mass (Chronic) Hematuria (Chronic) Hearing loss (Chronic) in both ears Anemia of chronic disorder (Chronic) History of bacterial endocarditis (Chronic) Hypertension (Chronic) ESRD (end stage renal disease) (Chronic) Due to hypertension, On hemodialysis, TTS, followed by Dr. Goncalves Morbidly obese (Chronic) Sleep apnea (Chronic) 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 due to renal insufficiency (Chronic) Chronic kidney disease-mineral and bone disorder (Acute) Hospital Course and Treatment Imaging Results: Clinical Impression(s) from Imaging Studies Chest X-Ray 09/13/18 01:12 IMPRESSION: 1. Right middle lobe infiltrate is suggested compatible with pneumonia. 2. Thoracic dextroscoliosis, unchanged. at 0219 Reported and signed by: Qasim Aleman MD Electronically Signed: Qasim Aleman, at 2:17 EST Tel , Service support , Microbiology 09/13/18 03:20 Blood Culture (Wb) - Arm Left Bacteria Detection (PCR) - Final 09/13/18 03:20 Blood Culture (Wb) - Arm Left Blood Culture - Preliminary Gram Positive Cocci 09/13/18 03:15 Blood Culture (Wb) - Arm Right Blood Culture - Preliminary No growth in 48 hours. 09/13/18 06:00 Mucosa - Nasopharyngeal Influenza Types A,B Direct FA (GRETT[facility]) - Final Influenzae B Dr. Griffin-Erik nephrology Dr. [facility] cardiology Operations: None Procedures: Stress test - Normal pharmacologic myocardial perfusion stress test with preserved ejection fraction of 80%, Transthoracic echo - Severe concentric left ventricular hypertrophy with 1+ tricuspid insufficiency. Summary of Care Provided: 38 YOM with a PMH of ESRD on HD, morbid obesity, YEIMY, hyperparathyroidism due to renal insufficiency, anemia of chronic disease, hearing loss in both ears, and HTN admitted to the hospital with PNA. He complained of constant chest pain. The chest pain increased with movement but not with a deep breath. Influenza swab was positive for Influenza B. CXR showed a RML infiltrate per the radiologist but, when I compared it to a previous CXR there was no significant difference. He was afebrile at admission and for the duration of his hospital stay. The white blood cell count at admission was 6.1 with an unremarkable differential and the WBC count was normal for the duration of his hospital stay. He had a very rare cough and his lungs were CTA from admission to the day of DC. K was 5.7 at admission. Troponin was increased at admission and it did not trend. The pain was not relieved with Oxycodone but, he felt morphine helped him. He had no hx of VTE and he denied calf pain. He was seen in consultation by Dr. Marsh from cardiology who felt his chest pain was musculoskeletal and recommended a stress test. The stress test was negative for ischemia with a preserved ejection fraction. Echocardiogram showed severe concentric left ventricular hypertrophy with preserved ejection fraction. There was trivial TR. There were no vegetations observed. 1 of 2 blood cultures drawn in the emergency room was positive for micrococcus per the micro tech and this is a contaminant. Follow-up blood cultures the following day had no growth at the time of discharge. He was also seen by Dr. Griffin while in the hospital and dialysis was performed. On 09/16/2018 he was afebrile with stable vital signs. He was discharged home with a prescription for Tamiflu and was instructed to take 1 after each dialysis session until gone. I feel like the chest pain may be due to the clotted fistula in the LUE. There were large dilated veins across the chest wall. In a note from Dr. Lance the pt is supposed to have the clot removed. The patient stated he was not told this. I called the nephrology office and was told by the clerk secretary that the dialysis center handles this. I called his dialysis center and I was told that they had set up appts for him to have this done but, they did not know if he followed up. He was discharged on 09/16/2018 and instructed to go to his dialysis center for his regularly scheduled appointment. I instructed him to call Dr. Melendez to clear up the issue about declotting the AV fistula. He was given a prescription for oxycodone to manage his chest pain until the issue with the clotted fistula can be resolved. GENERAL: alert, oriented X 3, Cooperative, NAD ORAL: moist mucosa, no mucosal lesions NECK: No JVD, supple, trachea midline LUNGS: CTA, symmetric chest expansion HEART: RRR, Normal S1 and S2, no rub, no gallop ABDOMEN: soft, NT, ND, BS present, no guarding with palpation, obese EXTREMITIES: mild 1+ edema - he is sitting in a chair with his legs dependent, no cyanosis, no calf tenderness SKIN: No rashes, no breakdown NEUROLOGIC: no focal neurologic deficits PSYCH: appropriate, normal affect, pleasant This note was generated with [employer] dictation software. It may contain incorrect words, spelling, and punctuation that were not noted in checking the note before signing. - Physical Exam Vital Signs Temp Pulse Resp BP Pulse Ox 98.0 F 102 H 18 104/56 L 100 09/16/18 08:00 09/16/18 08:00 09/16/18 08:00 09/16/18 08:00 09/16/18 08:00 Oxygen Flow Rate (L/min) 2.5 Oxygen Delivery Method Nasal Cannula Weight: 296 lb 1.293 oz Body Mass Index (BMI) 42.3 Intake and Output for Last 24 Hours 09/14/18 09/15/18 09/16/18 23:59 23:59 23:59 Intake Total 780 / 780 2405 / 2405 0 / 0 Output Total 8000 / 8000 0 / 0 0 / 0 Balance -7220 / -7220 2405 / 2405 0 / 0 Microbiology Past 72 Hours 09/13/18 03:20 Bacteria Detection (PCR) - Final Blood Culture (Wb) - Arm Left Blood Culture - Preliminary Gram Positive Cocci 09/13/18 03:15 Blood Culture - Preliminary Blood Culture (Wb) - Arm Right No growth in 48 hours. 09/13/18 06:00 Influenza Types A,B Direct FA (GRETTA) - Final Mucosa - Nasopharyngeal Influenzae B Laboratory Tests Past 24 Hrs 09/16/18 07:20 Sodium 136 Potassium 5.3 H Chloride 98 Carbon Dioxide 23.0 BUN 74 H Creatinine 13.80 H* Estim Creat Clear Calc 7.64 Est GFR (MDRD) Af Amer 5 L Est GFR (MDRD) Non-Af 4 L BUN/Creatinine Ratio 5.4 L Glucose 93 Calcium 8.2 L Phosphorus 10.1 H* Albumin 2.8 L Discharge Activity: Return to Normal Activity Call your doctor if you observe: Fever of 101 or Higher, Shortness of breath, Uncontrolled pain, - - increasing cough Home Medications: Medications to take at Discharge cinacalcet 60 mg tablet 60 mg PO MOWEFR 10/10/17 Carvedilol [Coreg (Beta Yossi)] 1 tab PO BID 01/08/18 Ferric Citrate [Auryxia] 3 tab PO TIDCM 05/15/18 Oseltamivir Phosphate [Tamiflu] 30 tab PO UD #3 cap 09/16/18 Oxycodone [Oxyir] 5 - 10 mg PO Q6H PRN PRN 7 Days #40 tab 09/16/18 Following Prescrptions Were Given to Patient: Oxycodone [Oxyir] 5 - 10 mg PO Q6H PRN PRN 7 Days #40 tab PRN Reason: pain Oseltamivir Phosphate [Tamiflu] 30 tab PO UD #3 cap Primary Care Physician: Pawel Banda MD [Primary Care Provider] - Please follow up with your Primary Care Physician in: 5-7 days Minutes spent on discharge:: 40 Patient Condition:: Good Medical Necessity - Tobacco Use Smoking Status: Former smoker Tobacco Use: Non-smoker Meaningful Use Info Meaningful Use Diagnoses (Choose all that apply): None applicable Code Visit Inpatient E&M: 24135 Disch Hosp
--- NOTE | 2018-09-16 09:16 | EKG12_ITS ---
Test Reason : RYTHM CHANGE Blood Pressure : / mmHG Vent. Rate : 099 BPM Atrial Rate : 099 BPM P-R Int : 368 ms QRS Dur : 072 ms QT Int : 322 ms P-R-T Axes : 062 094 060 degrees QTc Int : 413 ms Sinus rhythm with 1st degree A-V block Rightward axis Pulmonary disease pattern Septal infarct , age undetermined Abnormal ECG When compared with ECG of 15-SEP-2018 21:02, MANUAL COMPARISON REQUIRED, DATA IS UNCONFIRMED Confirmed by SALMA STAHL, JACOBY ([id number]), deputy editor in chief MIKI PAULINO ([id number]) on 09/18/2018 2:12:15 PM Referred By: WESTON Confirmed By:JACOBY MARSH MD
--- NOTE | 2018-09-16 09:32 | CASEMGMT ---
RACHEL PARNELL NOTE: Call placed to [facility]. Ashlyn was notified pt will discharging today 09/16/18. This RN SOHEILA spoke with [facility] Scaling Machine Operator, Oskar, and he stated pt can get Dialysis at the out-pt center today. He states they have a chair ready/available for him and pt can go as soon as he is discharged. In-pt dialysis nurse present and states she will inform the pt. RACHEL Gupta, made aware as well. Sandra COXN RACHEL CM
[2018-09-16] MEDS: Oseltamivir Phosphate 30 MG Capsule PO (10:50)
[2018-09-16 12:00] LABS: ANTINUCLEAR ANTIBODIES DIRECT Negative (Negative)
--- NOTE | 2018-09-16 13:31 | NURSING ---
Reviewed and agreed on all charting with Cynthia Kc RN
--- NOTE | 2018-09-17 07:53 | NURSING ---
This RN pulled 2 mg Morphine from the Accudose. The order was to give this pt 1 mg. 1 mg was given to the pt and 1 mg was wasted down the sink. Mel Wood RN visualized the waste of 1 mg of Morphine. This RN did not document the medication as wasted in the Accudose, but it was wasted down the sink in the pt room with Mel Wood RN.
--- OUTSIDE RECORDS SUMMARY | 2018-12-16 12:45 | XMS RPT_ITS ---
:1980 Author Organization OHIP Support Name Relationship Address Phone D Unavailable Unavailable Unavailable ENRICO, TIESHIA Unavailable [address] + [address] [place] [address] D Unavailable Unavailable Unavailable ENRICO, TIESHIA Unavailable [address] + [address] [place] [address] Enrico Tieshia Unavailable Unavailable + Enrico, Tieshia Unavailable Unavailable + D Unavailable Unavailable Unavailable ENRICO, TIESHIA Unavailable [address] + [address] [place] [address] D Unavailable Unavailable Unavailable ENRICO, TIESHIA Unavailable [address] + [address] [place] [address] D Unavailable Unavailable Unavailable ENRICO, TIESHIA Unavailable [address] + [address] [place] [address] D Unavailable Unavailable Unavailable ENRICO, TIESHIA Unavailable [address] + [address] [place] [address] D Unavailable Unavailable Unavailable ENRICO, TIESHIA Unavailable [address] + [address] [place] [address] D Unavailable Unavailable Unavailable ENRICO, TIESHIA Unavailable [address] + [address] [place] [address] D Unavailable Unavailable Unavailable ENRICO, TIESHIA Unavailable [address] + [address] [place] [address] D Unavailable Unavailable Unavailable ENRICO, TIESHIA Unavailable [address] + [address] [place] [address] D Unavailable Unavailable Unavailable ENRICO, TIESHIA Unavailable [address] + [address] [place] [address] D Unavailable Unavailable Unavailable ENRICO, TIESHIA Unavailable [address] + [address] [place] [address] D Unavailable Unavailable Unavailable ENRICO, TIESHIA Unavailable [address] + [address] [place] [address] D Unavailable Unavailable Unavailable ENRICO, TIESHIA Unavailable [address] + [address] [place] [address] D Unavailable Unavailable Unavailable ENRICO, TIESHIA Unavailable [address] + [address] [place] [address] D Unavailable Unavailable Unavailable ENRICO, TIESHIA Unavailable [address] + [address] [place] [address] D Unavailable Unavailable Unavailable ENRICO, TIESHIA Unavailable [address] + [address] [place] [address] D Unavailable Unavailable Unavailable ENRICO, TIESHIA Unavailable [address] + [address] [place] [address] D Unavailable Unavailable Unavailable ENRICO, TIESHIA Unavailable [address] + [address] [place] [address] D Unavailable Unavailable Unavailable ENRICO, TIESHIA Unavailable [address] + [address] [place] [address] ENRICO, TIESHIA Unavailable [address] + [place] [address] ENRICO, ELIA Unavailable Unavailable Unavailable ENRICO, TIESHIA Unavailable [email or web address] + [place] [address] ENRICO, ELIA Unavailable Unavailable Unavailable D Unavailable Unavailable Unavailable ENRICO, TIESHIA Unavailable [address] + [address] [place] [address] D Unavailable Unavailable Unavailable ENRICO, TIESHIA Unavailable [address] + [address] [place] [address] ENRICO, TIESHIA Unavailable [address] + [place] [address] ENRICO, ELIA Unavailable Unavailable Unavailable D Unavailable Unavailable Unavailable ENRICO, TIESHIA Unavailable [address] + [address] [place] [address] D Unavailable Unavailable Unavailable ENRICO, TIESHIA Unavailable [address] + [address] [place] [address] D Unavailable Unavailable Unavailable ENRICO, TIESHIA Unavailable [address] + [address] [place] [address] D Unavailable Unavailable Unavailable ENRICO, TIESHIA Unavailable [address] + [address] [place] [address] D Unavailable Unavailable Unavailable ENRICO, TIESHIA Unavailable [address] + [address] [place] [address] D Unavailable Unavailable Unavailable ENRICO, TIESHIA Unavailable [address] + [address] [place] [address] D Unavailable Unavailable Unavailable ENRICO, TIESHIA Unavailable [address] + [address] [place] [address] D Unavailable Unavailable Unavailable ENRICO, TIESHIA Unavailable [address] + [address] [place] [address] D Unavailable Unavailable Unavailable ENRICO, TIESHIA Unavailable [address] + [address] [place] [address] D Unavailable Unavailable Unavailable ENRICO, TIESHIA Unavailable [address] + [address] [place] [address] D Unavailable Unavailable Unavailable ENRICO, TIESHIA Unavailable [address] + [address] [place] [address] D Unavailable Unavailable Unavailable ENRICO, TIESHIA Unavailable [address] + [address] [place] [address] D Unavailable Unavailable Unavailable ENRICO, TIESHIA Unavailable [address] + [address] [place] [address] D Unavailable Unavailable Unavailable ENRICO, TIESHIA Unavailable [address] + [address] [place] [address] ENRICO OC Unavailable Unavailable + ENRICO, OC Unavailable Unavailable + PABLO WESTON Unavailable Unavailable + D Unavailable Unavailable Unavailable MAURY WESTON Unavailable [address] + [address] [place] [address] D Unavailable Unavailable Unavailable MAURY WESTON Unavailable [address] + [address] [place] [address] D Unavailable Unavailable Unavailable MAURY WESTON Unavailable [address] + [address] [place] [address] D Unavailable Unavailable Unavailable MAURY WESTON Unavailable [address] + [address] [place] [address] D Unavailable Unavailable Unavailable MAURY WESTON Unavailable [address] + [address] [place] [address] D Unavailable Unavailable Unavailable EVELIA WESTONA Unavailable [address] + [address] [place] [address] Care Team Providers Name Role Phone NO FAMILY DOCTOR, NO FAMILY DOCTOR Primary Care Unavailable UNKNOWN, PROVIDER Attending Unavailable RAN, JAYAPRAKASH R Referring Unavailable KASH, DIANNA Attending Unavailable RAN, JAYAPRAKASH R Referring Unavailable OLEGHE, EFEWONGBE B Primary Care Unavailable BARADARAN, MENA Attending Unavailable KASH, DIANNA Referring Unavailable OLEGHE, EFEWONGBE B Primary Care Unavailable BARADARAN, MENA Attending Unavailable KASH, DIANNA Referring Unavailable OLEGHE, EFEWONGBE B Primary Care Unavailable Oleghe, Efewongbe Primary Care Unavailable Leigh, Anuel Admitting Unavailable Sementi, Yanely Attending Unavailable Bakhous, Aziz Consulting Unavailable Maximo, Salbador Consulting Unavailable Leigh, Anuel Attending Unavailable Oleghe, Efewongbe Primary Care Unavailable Leigh, Anuel Admitting Unavailable Maximo, Salbador Attending Unavailable Oleghe, Efewongbe Primary Care Unavailable Bakhous, Aziz Consulting Unavailable Maximo, Salbador Consulting Unavailable Sementi, Yanely Consulting Unavailable Leigh, Anuel Admitting Unavailable Sementi, Yanely Attending Unavailable Oleghe, Efewongbe Primary Care Unavailable Bakhous, Aziz Consulting Unavailable Maximo, Salbador Consulting Unavailable Sementi, Yanely Consulting Unavailable Leigh, Anuel Admitting Unavailable Sementi, Yanely Attending Unavailable Oleghe, Efewongbe Primary Care Unavailable Bakhous, Aziz Consulting Unavailable Maximo, Salbador Consulting Unavailable Sementi, Yanely Consulting Unavailable Oleghe, Efewongbe Primary Care Unavailable Koram, Bree Monalisa Admitting Unavailable Koram, Bree Monalisa Referring Unavailable Ran, Jayakarlenekash Consulting Unavailable Wild Collins Attending Unavailable Leigh, Anuel Admitting Unavailable Sementi, Yanely Attending Unavailable Oleghe, Efewongbe Primary Care Unavailable Bakhous, Aziz Consulting Unavailable Maximo, Salbador Consulting Unavailable Sementi, Yanely Consulting Unavailable Oleghe, Efewongbe Primary Care Unavailable Jackson Hilario Attending Unavailable BelindaGio Attending Unavailable BelindaGio Referring Unavailable Oleghe, Efewongbe Primary Care Unavailable Oleghe, Efewongbe Attending Unavailable Primay Care Physicia, No Referring Unavailable Oleghe, Efewongbe Primary Care Unavailable Oleghe, Efewongbe Attending Unavailable Oleghe, Efewongbe Primary Care Unavailable Clau Duke Attending Unavailable Oleghe, Efewongbe Referring Unavailable Oleghe, Efewongbe Primary Care Unavailable Jayden Galo Attending Unavailable Oleghe, Efewongbe Attending Unavailable Oleghe, Efewongbe Referring Unavailable Oleghe, Efewongbe Primary Care Unavailable Oleghe, Efewongbe Primary Care Unavailable Jackson Hilario Attending Unavailable Oleghe, Efewongbe Attending Unavailable Oleghe, Efewongbe Referring Unavailable Oleghe, Efewongbe Primary Care Unavailable Lg Krishnan Admitting Unavailable Dannyhous, Aziz Consulting Unavailable Harris Pope Attending Unavailable Josh, Grindstone Consulting Unavailable Lg Krishnan Admitting Unavailable Lg Krishnan Attending Unavailable Oleghe, Efewongbe Primary Care Unavailable Lg Krishnan Consulting Unavailable AgyeLg kong Admitting Unavailable Josh, Nnamdi Attending Unavailable Oleghe, Efewongbe Primary Care Unavailable Bakhous, Aziz Consulting Unavailable Josh, Grindstone Consulting Unavailable Harris Pope Consulting Unavailable Lg Krishnan Admitting Unavailable Harris Pope Attending Unavailable Oleghe, Efewongbe Primary Care Unavailable Jolynn Griffin Consulting Unavailable Nnamdi Moreno Consulting Unavailable Harris Pope Consulting Unavailable Oleghe, Efewongbe Primary Care Unavailable Sean Wang Attending Unavailable Shahram Major BARNWORKER GROOM-C Attending Unavailable Oleghe, Efewongbe Referring Unavailable Oleghe, Efewongbe Primary Care Unavailable Oleghe, Efewongbe Attending Unavailable Oleghe, Efewongbe Referring Unavailable Oleghe, Efewongbe Primary Care Unavailable Ran, Jayaprakash Attending Unavailable Ran, Jayaprakash Referring Unavailable Oleghe, Efewongbe Primary Care Unavailable Tanphaichitr, Natthavat Attending Unavailable Tanphaichitr, Natthavat Referring Unavailable Shahram Major [employer]WORK[employer]-C Attending Unavailable Oleghe, Efewongbe Referring Unavailable Shahram Major BARNWORK[employer]-C Attending Unavailable Oleghe, Efewongbe Primary Care Unavailable Harley Yin Attending Unavailable Ran, Jayaprakash Referring Unavailable Koram, Bree Monalisa Admitting Unavailable Koram, Bree Monalisa Referring Unavailable Oleghe, Efewongbe Primary Care Unavailable Ran, Jayaprakash Consulting Unavailable Wild Collins Attending Unavailable Wild Collins Consulting Unavailable Koram, Bree Monalisa Admitting Unavailable Maxi Johns Attending Unavailable Koram, Bree Monalisa Referring Unavailable Oleghe, Efewongbe Primary Care Unavailable Ran, Jayaprakash Consulting Unavailable Wild Collins Consulting Unavailable Koram, Bree Monalisa Admitting Unavailable Koram, Bree Monalisa Referring Unavailable Oleghe, Efewongbe Primary Care Unavailable Ran, Jayaprakash Consulting Unavailable Wild Collins Attending Unavailable Wild Collins Consulting Unavailable Koram, Bree Monalisa Admitting Unavailable Maxi Johns Attending Unavailable Koram, Bree Monalisa Referring Unavailable Oleghe, Efewongbe Primary Care Unavailable Ran, Jayaprakash Consulting Unavailable Wild Collins Consulting Unavailable Koram, Bree Monalisa Admitting Unavailable Koram, Bree Monalisa Referring Unavailable Oleghe, Efewongbe Primary Care Unavailable Ran, Jayaprakash Consulting Unavailable Wild Collins Attending Unavailable Wild Collins Consulting Unavailable Koram, Bree Monalisa Admitting Unavailable Koram, Bree Monalisa Attending Unavailable Koram, Bree Monalisa Referring Unavailable Oleghe, Efewongbe Primary Care Unavailable Ran, Jayaprakash Consulting Unavailable Wild Collins Consulting Unavailable Maxi Johns Attending Unavailable Koram, Bree Monalisa Referring Unavailable Nnamdi Moreno Attending Unavailable Sementi, Yanely Referring Unavailable Maxi Johns Attending Unavailable Wild Collins Referring Unavailable Shahram Major BARNWORKER [employer]OOM-C Attending Unavailable Oleghe, Efewongbe Referring Unavailable Kenneth Lau Attending Unavailable Oleghe, Efewongbe Referring Unavailable Clau Duke Attending Unavailable Oleghe, Efewongbe Referring Unavailable Oleghe, Efewongbe Primary Care Unavailable Harpreet Barr Attending Unavailable Shahram Major Attending Unavailable Oleghe, Efewongbe Referring Unavailable MANPREET BELL Admitting Unavailable MANPREET BELL Attending Unavailable IMCA Primary Care Unavailable RADHA YU Admitting Unavailable RADHA YU Attending Unavailable IMCA Primary Care Unavailable SILVIANO BARR Attending Unavailable IMCA Referring Unavailable IMCA Primary Care Unavailable SILVIANO BARR Admitting Unavailable SILVIANO BARR Attending Unavailable IMCA Primary Care Unavailable SILVIANO BARR Attending Unavailable IMCA Referring Unavailable IMCA Primary Care Unavailable RAN, JAYAPRAKASH R Referring Unavailable IMCA Primary Care Unavailable SILVIANO BARR Admitting Unavailable SILVIANO BARR Attending Unavailable IMCA Primary Care Unavailable RADHA YU Admitting Unavailable RADHA YU Attending Unavailable SILVIANO BARR Attending Unavailable OLEGHE, EFEWONGBE B Referring Unavailable RAN, JAYAPRAKASH Referring Unavailable SILVIANO BARR Attending Unavailable OLEGHE, EFEWONGBE B Referring Unavailable Ran, Jayaprakash Attending Unavailable PROVIDER, UNKNOWN Referring Unavailable Ran, Jayaprakash Attending Unavailable PROVIDER, UNKNOWN Referring Unavailable No, PCP Primary Care Unavailable PROVIDER, UNKNOWN Referring Unavailable No, PCP Primary Care Unavailable Desi Gray Attending Unavailable PROBLEMS PROBLEMS DATE TYPE CONDITION / CODE ATTENDING STATUS SOURCE Unknown R94.31 - Abnormal Maxi Johns Active [facility] electrocardiogram Community [ECG] [EKG] / Hospital R94.31(ICD-10) Repository Unknown R07.9 - Chest pain, Sementi, Active [place] [facility] unspecified / Yan[place] Community R07.9(ICD-10) Hospital Repository Unknown T82.49XA - Other Sementi, Active [place] complication of [facility] vascular dialysis Hospital catheter, initial Repository encounter / T82.49XA(ICD-10) Active End stage renal SILVIANO BARR Active [place] [address] disease / [facility] Other N18.6(ICD-10) [place] Repository Active Dependence on renal BARR SILVIANO Active [place] [address] dialysis / [facility] Other Z99.2(ICD-10) [place] Repository Admitting Unknown / UNK(Unknown) SILVIANO BARR Active [address] [facility] Repository Active Unknown / UNK(Unknown) NA Active [place] [address] Clinic Other [place] Repository Unknown R10.9 - Unspecified Harpreet Barr Active [place] abdominal pain / Community R10.9(ICD-10) Hospital Repository Admitting Awaiting organ CECILY SAGEA Active [place] [address] diagnosis transplant status / University Z76.82(ICD-10) [facility] Repository Admitting Retention of urine, CECILY SAGEA Active [place] [address] diagnosis unspecified / University R33.9(ICD-10) [facility] Repository Unknown G47.30 - Sleep apnea, Shahram Major BARNWORKER GROOMJonathonC Active [place] unspecified / Community G47.30(ICD-10) Hospital Repository Admitting Encounter for other KASH, DIANNA Active [place] [address] diagnosis preprocedural University examination / [facility] Z01.818(ICD-10) Center Repository Admitting End stage renal KASH, DIANNA Active [place] [address] diagnosis disease / University N18.6(ICD-10) [facility] Repository Admitting Encounter for KASH, DIANNA Active [place] [address] diagnosis screening for other [place] viral diseases / [facility] Z11.59(ICD-10) Center Repository Admitting Abnormal finding of KASH, DIANNA Active [place] [address] diagnosis blood chemistry, University unspecified / [facility] R79.9(ICD-10) Center Repository Admitting Encounter for DIANNA HEWITT Active [facility] 8 diagnosis therapeutic drug level University monitoring / [facility] Z51.81(ICD-10) Center Repository Unknown R40.0 - Somnolence / MajorShahram [place] Active [place] [facility] R40.0(ICD-10) [facility] Hospital Repository Unknown G47.33 - Obstructive MajorShahram BARNWORKER GROOM-C Active [place] [facility] sleep apnea (adult) Community (pediatric) / Hospital G47.33(ICD-10) Repository Unknown E66.01 - Morbid MajorShahram BARNWORKER GROOM-C Active [place] (severe) obesity due Community to excess calories / Hospital E66.01(ICD-10) Repository Unknown Z01.818 - Encounter Ran Active [place] 8 for other [facility] preprocedural Hospital examination / Repository Z01.818(ICD-10) Unknown T82.598A - Other Harley Yin Active [place] [facility] mechanical Community complication of other Hospital cardiac and vascular Repository devices and implants, initial encounter / T82.598A(ICD-10) Unknown R42 - Dizziness and Oleghe, Active [place] [facility] giddiness / Efewongbe Community R42(ICD-10) Hospital Repository Unknown L03.114 - Cellulitis Shahram Major Active [place] 8 of left upper limb / Community L03.114(ICD-10) Hospital Repository Unknown G89.18 - Other acute MajorShahram [place] NP-C Active [place] [facility] postprocedural pain / Community G89.18(ICD-10) Hospital Repository Unknown M79.632 - Pain in left RuhlSean cote Active [place] forearm / Community M79.632(ICD-10) Hospital Repository Active Other specified RADHA YU Active [facility] symptoms and signs Clinic Other involving the [place] circulatory and Repository respiratory systems / R09.89(ICD-10) Unknown M25.521 - Pain in Ahmed, Rami Active [place] [facility] right elbow / Community M25.521(ICD-10) Hospital Repository Unknown R19.00 - Oleghe, Active [place] [facility] Intra-abdominal and [facility] pelvic swelling, mass Hospital and lump, unspecified Repository site / R19.00(ICD-10) Unknown R10.2 - Pelvic and Oleghe, Active [place] perineal pain / [facility] R10.2(ICD-10) Hospital Repository Unknown G89.29 - Other chronic Oleghe, Active [place] pain / G89.29(ICD-10) [facility] Hospital Repository Admitting Cervicalgia / Unknown Active [facility] 8 diagnosis M54.2(ICD-9) Repository Final Cervicalgia / Unknown Active [facility] 8 diagnosis M54.2(ICD-9) Repository (discharge) Final Radiculopathy, Unknown Active [facility] 8 diagnosis cervical region / Repository (discharge) M54.12(ICD-9) Final Hyp chr kidney disease Unknown Active [facility] 8 diagnosis w stage 5 chr kidney Repository (discharge) disease or ESRD / I12.0(ICD-9) Final End stage renal Unknown Active [facility] 8 diagnosis disease / N18.6(ICD-9) Repository (discharge) Final Dependence on renal Unknown Active [facility] 8 diagnosis dialysis / Repository (discharge) Z99.2(ICD-9) Final Prsnl history of dis Unknown Active [facility] 8 diagnosis of the bld/bld-form Repository (discharge) org/immun mechnsm / Z86.2(ICD-9) Final Personal history of Unknown Active [facility] 8 diagnosis pulmonary embolism / Repository (discharge) Z86.711(ICD-9) Admitting Pain in right shoulder Unknown Active [facility] 8 diagnosis / M25.511(ICD-9) Repository Admitting Other malaise / Unknown Active [facility] 8 diagnosis R53.81(ICD-9) Repository Unknown H91.90 - Unspecified Oleghe, Active [place] [facility] hearing loss, [facility] unspecified ear / Hospital H91.90(ICD-10) Repository Unknown [place] - No Diagnosis Code Jackson Hilario Active [place] / [place](ICD-10) [facility] [place] PROCEDURES PROCEDURES No Procedure Records FoundRESULTS RESULTS INTERNAL MEDICINE Observed: 10/14/2018 Status: F Source: [place] OFFICE VISIT 10:53 AM [facility] REPOSITORY [facility] [address] [place] [address] [place] [address] OFFICE VISIT Date of Service: 10/09/18 MR#: [id number] Acct: [id number] Name: ELIA WESTON Rep #: [id number] : 1980 Provider: Shahram Major NP Age/Sex: 38/M Location: [facility] Status: Signed Intake Vital Signs10/09/18 Height 5 ft 10 in 10/09/18 Weight: 296 lb 10/09/18 Body Mass Index (BMI) 42.5 10/09/18 Blood Pressure 144/83 H Intake Visit Reasons: [place] HOSP FOLLOW UP Chief Complaint: [facility] Hospital- Dischg'd yesterday - Fast Heart rate during a procedure Allergies No Known Allergies Allergy (Verified 10/09/18 13:44) Medications cinacalcet 60 mg tablet 60 mg PO MOWEFR 10/10/17 [History Confirmed 10/09/18] Ferric Citrate [Auryxia] 3 tab PO TIDCM 05/15/18 [History Confirmed 10/09/18] Aspirin E.C. [Ecotrin] 81 mg PO DAILY@0800 #30 tab 09/19/18 [Rx Confirmed 10/09/18] Diltiazem CD [Cardizem CD] 120 mg PO DAILY #30 cap 09/19/18 [Rx Confirmed 10/09/18] Ibuprofen [Motrin] 600 mg PO Q8 #42 tab 09/19/18 [Rx Confirmed 10/09/18] apixaban PO BID 10/09/18 [History Confirmed 10/09/18] [facility] Medical History Mitral valve stenosis (Chronic) Sleep apnea (Chronic) History of blood clots (Acute) Hearing loss (Chronic) Social History Smoking Status: Never smoker alcohol intake: never substance use type: does not use what type of physical activity do you participate in: none HPI HPI Chief Complaint: [facility] Hospital- Dischg'd yesterday - Fast Heart rate during a procedure Details: ELIA WESTON, is a 38 M who presents to the office today for a hospital follow-up for chest pain, hypertension, and new onset atrial fibrillation. He has a past medical history as listed above. The patient was initially admitted on 09/13/2018 at [facility] for viral pneumonia secondary to influenza B and was discharged on 09/16/2018. He was readmitted on 09/16/2018 due to hypotension that occurred during dialysis. He continued to have chest pain and his troponin was elevated and it was thought to be secondary to pericarditis and coronary vasospasm. Cardiology was consulted and patient underwent cardiac cath which showed normal coronary arteries. Patient was started on Cardizem per cardiology for coronary vasospasm and tachycardia and was initiated on ibuprofen 600 mg every 6 hours for pericarditis. He was told to continue the ibuprofen for 2 weeks and follow-up with Dr. Johns in 1-2 weeks as well. His hypertension improved and his new onset atrial fibrillation rate controlled with Cardizem and oral anticoagulation was held at that point. The patient was discharged home on 09/19/2018. Per the patient he went to [facility] to have a dialysis catheter replaced under fluoroscopy and after the procedure ended he states that he began having palpitations and an elevated heart rate. Per the patient he was admitted from 10/06/2018 through 10/08/2018 at [facility]. Records are not available for review at this time and patient states that his medications were adjusted, however he was unsure which medications were adjusted and is currently unsure of the current dose of his medications that he is on. He states that he continues to take the Cardizem and that he thinks metoprolol and eliquis was added to his medication regimen as well. He does state that what he does recall is that he had a YONATHAN done that showed mitral stenosis. Since being discharged yesterday, he states that he still occasionally feels palpitations, however his heart is not beating as fast as it was when he was admitted to [facility]. He states that he still continues to have intermittent chest pain secondary to the pericarditis, however the ibuprofen does help with his symptoms. He denies any other acute concerns at this time and states that he does need to schedule an appointment to follow-up with cardiology next week. ROS Const Constitutional: No chills, fatigue, fever(s), frequent falls, malaise, weakness, sleep problems or change in appetite Eyes Eyes: No blurry vision, change in vision, double vision, discharge or visual disturbances ENT ENT: No abnormal hearing, ear pain, ear pressure, tinnitus or dizziness/vertigo Resp Respiratory: No cough, shortness of breath or wheezing Cardio Cardiology: No chest pain at rest, chest pain with exertion, shortness of breath, dyspnea on exertion, generalized swelling, irregular heart rhythm, lightheadedness, orthopnea, fast heart rate or palpitations Gastro GI: No abdominal pain, change in bowel habits, constipation, diarrhea, nausea/dyspepsia or vomiting Genitourinary Male: No difficulty urinating, burning urination, painful urination, urinary incontinence, urinary frequency, urinary urgency, urinary hesitancy, urinary retention, blood in urine, Frequent nighttime urination/ nocturia, sexual problems, testicle lump or testicle pain Musc Musculoskeletal: No joint pain, back pain, joint swelling, limited range of motion, numbness or tingling Skin Skin: No change in skin color, itching, rash or wounds Breast Breast: No breast lump or breast pain Neuro Neurology: No frequent falls, weakness, visual disturbances, abnormal hearing, numbness, tingling, unsteady gait/balance, dizziness, loss of vision or memory loss Psych Psychiatric: No change in appetite, No memory loss, No anxiety, No depression, No Thoughts of harming yourself/Others Endo Endocrine: No fatigue, heat intolerance, increased thirst/drinking, increased hunger or increased urination Aller/Imm Allergy/Immunologic: No wheezing, itchy eyes or seasonal allergy symptoms Lucas/Lymp Hematologic/Lymphatic: No easy bleeding, easy bruising or enlarged lymph nodes Exam Const General: cooperative, no acute distress Nutritional Appearance: obese Orientation: alert, awake, oriented x3 HENMT Head: atraumatic, normocephalic Ears: hearing grossly normal bilaterally Resp Effort AND Inspection: normal respiratory effort, able to speak in complete sentences Auscultation: Bilateral: Clear to Auscultation Cardio Rate: regular rate Rhythm: abnormal rhythm irregularly irregular Heart Sounds: S1 normal, S2 normal GI Inspection: obesity Palpation: soft, no hepatosplenomegaly Extrem Other: Psych Appearance: grossly normal Affect: normal affect Assessment AND Plan Problems 1. Mitral valve stenosis I05.0 2. Chest pain R07.9 3. PAF (paroxysmal atrial fibrillation) I48.0 Plan Patient does have a follow-up scheduled with cardiology next week. Regarding his paroxysmal atrial fibrillation he is currently rate controlled and on Eliquis for anticoagulation. His chest pain thought to be secondary to pericarditis has been improving, he will continue with ibuprofen as needed. He does state that he was diagnosed with mitral valve stenosis during his course of stay at [facility]. We will request records for continuity of care. Patient denies any acute concerns at this time. He was educated on red flag signs and symptoms that require urgent medical attention. This note was generated with [employer] dictation software. It may contain incorrect words, spelling, and punctuation that were not noted in checking the note before signing. Coding Level of Care Code Off vis,est,level 4 Diagnoses Mitral valve stenosis I05.0 Chest pain R07.9 PAF (paroxysmal atrial fibrillation) I48.0 Time Spent (min) 60 10/14/18 1053 <Electronically signed by Shahram RUSSELL> Date Shahram RUSSELL Cosigner Signature: Date (if applicable) CC: DISCHARGE SUMMARY Observed: 10/08/2018 Status: F Source: [facility] 2:39 PM SYSTEM REPOSITORY Hospitalist Discharge Summary Elia Weston : 1980 Admit date: 10/06/2018 Discharge date: 10/08/18 Admitting Physician: Desi Gray MD Primary Care Physician: No primary care provider on file. Discharge Diagnosis: 1. 1. ESRD on dialysis 2. Shortness of breath, history of PE: 3. Chest pain/tachycardia 4. Hyperkalemia: 5. Fluid overload ? Hospital Course: Elia is a 38 y.o. male with history of ESRD on dialysis 3 days a week who [facility]. He was having his left groin tunneled dialysis catheter exchanged when he felt heart palpitations and he was found to be tachycardic. Pt was admitted. Dialysis was done. TTE showed MS. Cardiology was consulted. MS was considered to be secondary to ESRD. Pt was started on metoprolol, established with cardiology and discharged. ? Dietary Nutrition Supplements: Protein Modular Diet NPO Time Specified DIET RENAL; Vitals: BP (!) 118/59 Pulse 100 Temp 98.7 ?F (37.1 ?C) (Temporal) Resp 16 Ht 5' 11 (1.803 m) Wt 296 lb (134.3 kg) SpO2 97% BMI 41.28 kg/m? General appearance: alert and cooperative with exam Lungs: clear to auscultation bilaterally Heart: regular rate and rhythm, S1, S2 normal, no murmur, click, rub or gallop Abdomen: soft, non-tender; bowel sounds normal; no masses, no organomegaly Extremities: extremities normal, atraumatic, no cyanosis or edema Neurologic: No obvious focal neurologic deficits. Recent Labs 10/06/18 1217 10/07/18 0508 10/08/18 0756 WBC 3.4* 3.8 4.1 HGB 10.5* 9.9* 10.2* PLT 174 138* 194 Recent Labs 10/06/18 1217 10/07/18 0508 10/08/18 0756 NA 141 140 139 K 5.5* 5.3* 5.8* CL 96* 100 97* CO2 33* 28 31* BUN 48* 49* 38* CREATININE 10.87* 10.11* 9.31* GLUCOSE 105* 98 93 No results for input(s): AST, ALT, ALB, BILITOT, ALKPHOS in the last 72 hours. Significant Diagnostic Studies: Cta Chest W Wo Contrast Result Date: 10/07/2018 Patient Name: ELIA WESTON ---CT--- Exam Date/Time 10/06/2018 14:10:00 EST Exam CTA Chest w/ + w/o Contrast Ordering Physician CHIDI ANDERSON, CORI Ceja Accession Number [id number] CPT4 Codes 09537 (), Q9967 (CT ISOVUE 370MG/ML&[id number]&ML&1) Reason For Exam CHEST PAIN, ACUTE, PULMONARY EMBOLISM SUSPECTED Report CT ANGIOGRAPHY CHEST: CLINICAL INDICATION: Shortness of breath and chest pain with renal failure. Patient has a left femoral venous dialysis access catheter and peripheral IV in the right upper extremity TECHNIQUE: Transaxial sequence from apices through the bases during dynamic intravenous infusion of 75 mL of contrast media, injected at a high flow rate. Multiplanar and 3D MIP reconstruction was performed concurrently on an independent viewing workstation. Dose reduction was employed with automated exposure control. COMPARISON: Nuclear VQ scan from the same date FINDINGS: Exam quality: Nondiagnostic contrast enhancement of the vasculature. 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 There are numerous collateral vessels throughout the visualized chest wall anteriorly and posteriorly. There is no contrast enhancement of the pulmonary vessels. Aorta: Aorta demonstrates normal caliber. Evaluation for dissection is not possible. Lungs: Atelectasis is noted at the left lung base. There is some scattered reticular opacities without lobar consolidation. No parenchymal or pleural-based mass. Pleural fluid: None. Heart: Cardiac chambers demonstrate normal size. Calcification is noted in the region of the mitral annulus. Mediastinum/Michael: There is either calcification or a small amount contrast within the superior and cava. There is minimal contrast in the azygos vein which is enlarged. There is no mediastinal or hilar mass. Few small prevascular space lymph nodes are identified in the normal size range. Soft tissues chest wall/Neck base: Extensive collateral vessels are noted throughout the subcutaneous soft tissues. Upper abdomen: No abnormality throughout the visualized portions of liver. No abnormality throughout the spleen. Adrenals are unremarkable. Osseous structures: S-shaped scoliosis is noted. IMPRESSION: 1. Nondiagnostic evaluation of the pulmonary vasculature probably due to occlusion of the right subclavian vein. 2. Nondiagnostic evaluation for aortic dissection. 3. Some scattered reticular opacities throughout the lungs may reflect some mild interstitial edema but no consolidation or pleural fluid is noted. Report Dictated on Workstation: [id number] --- Final --- Dictating Physician: MD FRY JEFFREY Signed Date and Time: 10/07/2018 6:28 am Signed by: MD FRY JEFFREY Transcribed Date and Time: 10/07/2018 6:29 Xr Chest Portable Result Date: 10/06/2018 Patient Name: ELIA WESTON ---Diagnostic Radiology--- Exam Date/Time 10/06/2018 12:30:30 EST Exam CR Chest Portable Ordering Physician CHIDI ANDERSON KRISITN A. Accession Number [id number] CPT4 Codes 26747 () Reason For Exam CP, SOB Report EXAM TYPE: RADIOLOGIC EXAMINATION, CHEST, SINGLE VIEW FRONTAL (CXR SINGLE VIEW) EXAM DATE AND TIME: 10/06/2018 12:30 PM EST INDICATION: As pain, shortness of breath COMPARISON: None available. TECHNIQUE: A single frontal view of the thorax was obtained and reviewed. Special views: None. FINDINGS: 1. Lines/Tubes/Devices/Hardware: None. 2. Lungs: No consolidation. Pulmonary vascular congestion without overt edema. 3. Pleura: No pneumothorax or large pleural effusions. 4. Heart and mediastinum: Normal cardiomediastinal contours given portable AP technique. 5. Osseous structures: Dextroconvex curvature of the lower thoracic spine. IMPRESSION: No consolidation. Pulmonary vascular congestion without overt edema. No large effusion. Report Dictated on --- Final --- Dictating Physician: MD THOMPSON NEIL Signed Date and Time: 10/06/2018 12:53 pm Signed by: MD THOMPSON NEIL Transcribed Date and Time: 10/06/2018 12:54 Nm Lung Vent And Perfusion Imaging Result Date: 10/06/2018 Patient Name: ELIA WESTON ---Nuc Med--- Exam Date/Time 10/06/2018 17:34:58 EST Exam NM Pulmonary Ventilation/Perfusion Ordering Physician MD [facility] Accession Number [id number] Codes 02234 (), A9567 () Reason For Exam CHEST PAIN, ACUTE, PULMONARY EMBOLISM SUSPECTED Report Examination: VQ scan Clinical Indication: Chest pain, concern for pulmonary embolus Comparison: Correlation with chest x-ray 10/06/2017 Findings: Patient was administered and inhalational 44.4 mCi equivalent dose of technetium 99m DTPA aerosol. The patient ventilated twice. Patient was subsequently injected with 4.1 mCi of technetium 99m macroaggregated albumin. Both ventilation and perfusion images were obtained in multiple planes. There is homogenous uptake of ventilatory and perfusion radiopharmaceutical. On the left posterior oblique perfusion image, there is a small nonsegmental perfusion defect. Otherwise there is no ventilation/perfusion mismatch to suggest pulmonary embolus. Impression: On the left posterior oblique perfusion image, there is a small nonsegmental perfusion defect. Otherwise there is no ventilation/perfusion mismatch to suggest pulmonary embolus. Low probability of pulmonary embolism by the modified PIOPED criteria. Report Dictated on --- Final --- Dictating Physician: MD MCINTYRE JASON Signed Date and Time: 10/06/2018 6:21 pm Signed by: MD MCINTYRE JASON Transcribed Date and Time: 10/06/2018 6:22 Xa Special Angiography Procedure Result Date: 10/06/2018 Patient Name: ELIA WESTON ---Special Procedures--- Exam Date/Time 10/06/2018 10:26:09 EST Exam XA Special Angiography Procedure Ordering Physician MD RAN, KEYLA TREVIÑO Accession Number [id number] Reason For Exam DIALYSIS CATHETER EXCHANGE / CLOTTED ON VENOUS LINE Report FLUOROSCOPIC GUIDED TUNNELED DIALYSIS CATHETER EXCHANGE. CLINICAL HISTORY: Left groin tunneled hemodialysis catheter dysfunction Fluoroscopy time: 0.3 minutes Angiographic runs: 0 Fluoroscopic spot images: Two Procedural details: The benefits and risks of the procedure were explained to the patient and the patient signed informed consent. The patient was brought into the interventional radiology suite and placed supine on the table. An audible timeout was performed. The patient's left groin tunneled hemodialysis catheter and surrounding skin were prepped and draped in the usual sterile fashion. Maximal sterile barrier technique was utilized. All elements of maximal sterile barrier technique including hand hygiene, a mask, hat, sterile gown, sterile gloves, and large sterile sheet were utilized. Betadine antiseptic was utilized for skin sterilization. Attempts were made to flush and draw from both lumens of the existing catheter. The venous lumen flushed and aspirated appropriately. The arterial lumen would flush, but would not aspirate adequately. The decision was therefore made to exchange the catheter for a new longer catheter now terminating in the inferior vena cava. The subcutaneous tissues surrounding the catheter exit site and tunnel were anesthetized using 1 % lidocaine injection. Next, a stiff 0.035 inch Glidewire were advanced through both lumens of the existing tunneled hemodialysis catheter and into the inferior vena cava. The subcutaneous cuff was then freed from the subcutaneous cutaneous tissues using blunt dissection. The catheter was then exchanged over the wire for a new tunneled hemodialysis catheter. Fluoroscopy confirmed that the catheter tip terminates in the inferior vena cava. Both lumens of the catheter flushed and aspirated appropriately. The catheter was then sutured to the patient's skin using 2-0 silk suture. The patient tolerated the procedure well, but did describe mild palpitations and it was noted that his heart rate was in the high 120s/low 130s beats per minute on the monitor. His blood pressure remained unchanged and stable. The patient denied chest pain, shortness of breath, or dizziness. The patient was transferred to the recovery area in stable condition. IMPRESSION: 1. Successful fluoroscopic guided exchange of a tunneled hemodialysis catheter. The catheter is ready for use. Report Dictated on --- Final --- Dictating Physician: MD CHÁVEZ GEORGE RICHARD Signed Date and Time: 10/06/2018 2:42 pm Signed by: MD CHÁVEZ GEORGE RICHARD Transcribed Date and Time: 10/06/2018 2:43 Discharge Medications: Elia Weston Home Medication Instructions ERIC:[id number] Printed on:10/08/18 2949 Medication Information apixaban (ELIQUIS) 2.5 MG TABS tablet Take 1 tablet by mouth 2 times daily cinacalcet (SENSIPAR) 60 MG tablet Take 120 mg by mouth every other day 2 tablets Ferric Citrate (AURYXIA) 1 GM 210 MG(Fe) TABS Take 3 tablets by mouth 3 times daily ibuprofen (ADVIL;MOTRIN) 200 MG CAPS Take 1 capsule by mouth daily metoprolol tartrate (LOPRESSOR) 25 MG tablet Take 1 tablet by mouth 2 times daily Consults: cardiology Disposition: Patient discharged in stable condition. Greater than 30 minutes spent discharging the patient and coming up with patient discharge plan. Follow up with No primary care provider on file. in 1-2 weeks. Signed: DESI GRAY MD 10/08/2018, 2:39 PM ECHO 2D/3D [facility] W/WO Observed: 10/08/2018 Status: F Source: [facility] CONTRAST 10:06 AM SYSTEM REPOSITORY Patient Name: ELIA WESTON Ultrasound Exam Date/Time 10/08/2018 10:45:29 EST Exam Echo 2D/3D [facility] w/wo Contrast Ordering Physician LG FUENTES Accession Number [id number] Reason For Exam mitral stenosis Report TRANSESOPHAGEAL ECHOCARDIOGRAM PATIENT: Elia Weston STUDY DATE: 10/08/2018 : 1980 AGE: 38 HT/WT: 177.8 cm (70 127 kg (279.4 in) lb) GENDER: M BP: 143 / 81 LOCATION: [facility] PATIENT [facility] STATUS: *ORDERING PHYSICIAN: * Lg Fuentes MD *READING PHYSICIAN: * Coy Guerra MD *DIRECTOR OF DONOR RELATIONS: * Jaymie BLAKELY --- INDICATIONS: (Fluid overload). Mitral stenosis [non- rheumatic] (I348). --- CONCLUSIONS SUMMARY: 1. Mitral valve: Severely calcified, severely thickened annulus. Transvalvular velocity is increased. The findings are consistent with moderate to severe stenosis. Mean gradient (D): 12 mm Hg. Evans score: Leaflet mobility 1, Valve thickness 2, Subvalvular thickening 1, Valvular calcification 2, total 6. 2. Left ventricle: Systolic function is normal. 3. Right ventricle: Systolic function is normal. 4. Left atrium: The atrium is mildly dilated. 5. Pulmonary arteries: Systolic pressure is within the normal range, estimated to be 25 mm Hg. RECOMMENDATIONS: This does not appear to be a rheumatic mitral valve. Rather the stenosis appears to be primarily an annular problem, thus not idea for balloon valvoloplasty. --- STUDY DATA: Transesophageal echocardiography was performed. Procedure: Initial setup. Surface ECG leads, blood pressure measurements, and pulse oximetric signals were monitored. Image quality was goodA transesophageal probe was inserted by the attending cardiologistwithout difficulty. Complete 2D, complete spectral Doppler, and color flow Doppler images were acquired and archived for permanent storage and are available for subsequent review. Study status: Routine. Patient status: Inpatient. Location: [facility] laboratory. Consent: The risks, benefits, and alternatives to the procedure were explained to the patient and informed consent was obtained. Administered medications: Propofol. ECG RHYTHM: NSR --- FINDINGS LEFT VENTRICLE: The cavity size is normal. Wall thickness is normal. Systolic function is normal. RIGHT VENTRICLE: The cavity size is normal. Wall thickness is normal. Systolic function is normal. LEFT ATRIUM: Well visualized. The atrium is mildly dilated. No evidence of thrombus in the atrial cavity or appendage. No spontaneous echo contrast is observed. The appendage is well visualized and of normal size. Emptying velocity is normal. RIGHT ATRIUM: The atrium is normal in size. ATRIAL SEPTUM: The interatrial septum is normal. No evidence of patent foramen ovale or atrial septal defect. No evidence of interatrial shunt by color Doppler or with injection of agitated saline contrast. There is no evidence of right to left shunting with injection of agitated saline contrast. MITRAL VALVE: Well visualized. Severely calcified, severely thickened annulus. Evans score: Leaflet mobility 1, Valve thickness 2, Subvalvular thickening 1, Valvular calcification 2, total 6. Doppler: Transvalvular velocity is increased. The findings are consistent with moderate to severe stenosis. There is no significant regurgitation. Mean gradient (D): 12 mm Hg. Peak gradient (D): 22 mm Hg. AORTIC VALVE: Well visualized. Trileaflet; normal thickness, noncalcified leaflets. Doppler: There is no stenosis. There is no regurgitation. TRICUSPID VALVE: Well visualized. Structurally normal valve. Normal thickness leaflets. Doppler: There is trivial, less than 1+ regurgitation. PULMONIC VALVE: Structurally normal valve. Doppler: There is trivial, less than 1+ regurgitation. AORTA: The aortic root and ascending aorta are normal in size. The visualized portions of the arch and descending aorta are normal in size. PULMONARY ARTERY: Systolic pressure is within the normal range, estimated to be 25 mm Hg. PERICARDIUM: There is no pericardial effusion. SYSTEMIC VEINS: Superior vena cava: The vessel is normal in size. PULMONARY VEINS: Left upper pulmonary vein: Normal sized. The Doppler velocity and flow profile are normal. --- Measurements Mitral valve Value 10/07/2018 Mitral mean gradient, D 9 mm Hg 14 Mitral peak gradient, D 16 mm Hg 21 Legend: (L) and (H) shahram values outside specified reference range. Electronically signed by Coy Guerra MD 10/08/2018 11:55 Final Dictated: 10/08/2018 11:55 am Dictating Physician: COY GUERRA Signed Date and Time: 10/08/2018 11:55 am Signed by: COY GUERRA BASIC METABOLIC PANEL Collected: 10/08/2018 Status: F Source: [facility] 7:56 AM SYSTEM REPOSITORY TYPE CODE TESTS RESULT OUT OF RANGE REFERENCE UNITS LAB NA3 135-145 mmol/L Sodium Normal 139 LAB K3 3.5-5.1 mmol/L High Potassium 5.8 LAB CL3 98-107 mmol/L Low Chloride 97 LAB CO23 22-30 mmol/L High Carbon Dioxide 31 LAB ANIN3 NA Anion Gap 10 LAB GLUC3 70-100 mg/dL Glucose Normal 93 LAB BUN3 7-20 mg/dL High Urea Nitrogen 38 LAB CRET3 0.52-1.25 mg/dL High Creatinine 9.31 LAB GF3BR >60 mL/min eGFR 7.8 LAB GF3WR >60 mL/min eGFR OTHER 6.4 Result Comment: Source- MDRD equation with creatinine calibration to IDMS(NKDEP) eGFR not recommended for drug dose adjustment LAB CA3 8.4-10.4 mg/dL Normal Calcium 8.8 Performed By: #### BMP3, HEMOG #### [facility] [address] [place] [address] HEMOGRAM Collected: 10/08/2018 Status: F Source: [facility] 7:56 AM SYSTEM REPOSITORY TYPE CODE TESTS RESULT OUT OF RANGE REFERENCE UNITS LAB IWBC 3.6-10.7 10*3/uL WBC Normal 4.1 LAB RBC 4.40-5.90 10*6/uL Low RBC 3.50 LAB HGB 13.0-18.0 g/dL Low Hemoglobin 10.2 LAB HCT 40.0-52.0 % Low Hematocrit 31.1 LAB MCV 80.0-98.0 fL MCV Normal 88.7 LAB MCH 26.0-34.0 pg MCH Normal 29.1 LAB MCHC 32.0-36.0 % MCHC Normal 32.7 LAB RDW 11.5-14.5 % High RDW 19.1 LAB PLT 140-440 10*3/uL Platelet Normal 194 LAB MPV 7.4-10.4 fL MPV Normal 9.5 Performed By: #### BMP3, HEMOG #### [facility] [address] [place] [address] HEP B SURFACE AG Collected: 10/08/2018 Status: F Source: [facility] 7:56 AM SYSTEM REPOSITORY TYPE CODE TESTS RESULT OUT OF RANGE REFERENCE UNITS LAB HBSAG Not-Detected NA Normal Hep B Surface NOT DETECTED Ag Performed By: #### HBSAG #### [facility] [address] [place] [id number] ECHO COMPLETE W/WO Observed: 10/07/2018 Status: F Source: [facility] 8:25 AM SYSTEM REPOSITORY Patient Name: ELIA WESTON Ultrasound Exam Date/Time 10/07/2018 09:21:54 EST Exam Echo Complete w/wo Contrast Ordering Physician ROSA BAIG Accession Number [id number] Reason For Exam Fluid overload Report TRANSTHORACIC ECHOCARDIOGRAM PATIENT: Elia Weston STUDY DATE: 10/07/2018 : 1980 AGE: 38 HT/WT: 180.3 cm (71 135.6 kg in) (298.4 lb) GENDER: M BP: 146 / 71 LOCATION: [facility] [facility] PATIENT Inpatient [facility] STATUS: *ORDERING PHYSICIAN: * Rosa Adams *READING PHYSICIAN: * Noah Gonzalez, *DIRECTOR OF DONOR RELATIONS: Cait Guerrero RDCS, MD AE --- INDICATIONS: (Fluid overload). --- CONCLUSIONS SUMMARY: 1. Left ventricle: The cavity size is normal. Wall thickness is mildly increased. Systolic function is normal by the biplane method of disks. The estimated ejection fraction is 68%. There are no regional wall motion abnormalities. Unable to assess LV diastolic function due to due to MAC and MV disease 2. Right ventricle: The cavity size is mildly dilated. Systolic function is normal. Right ventricular systolic pressure is mildly increased. RV systolic pressure (S, est): 39 mm Hg. 3. Right atrium: Central venous pressure (est): 3 mm Hg. 4. Mitral valve: Severely calcified annulus. Moderately thickened, mildly calcified leaflets. Mildly thickened and mildly calcified MV chords. The findings are consistent with moderately severe stenosis. Findings are borderline for severe MS. There is mild, 1+ regurgitation. Mean gradient (D): 12 mm Hg on average of multiple measurements. Valve area by pressure half-time: 1.7 cm2. Valve area by continuity equation (using LVOT flow): 1.5 cm2. 5. Pericardium, extracardiac: There is no pericardial effusion. RECOMMENDATIONS: 1. Heart rate is elevated and LV function visually is borderline hyperdynamic which may increase gradients above a true baseline value. Clinical correlation recommended and consider repeat echo when patient may be under less catecholamine stress. 2. Given calcification and thickening of MV disease, consider rheumatic heart disease even though MV findings are not necessarily classic for this lesion. 3. Consider [facility] for further evaluation of MV disease and characterization of MV chords. --- STUDY DATA: Complete transthoracic echocardiogram. Procedure: Image quality was adequate. M-mode, complete 2D, complete spectral Doppler, and color flow Doppler images were acquired and archived for permanent storage and are available for subsequent review. Study status: Routine. Patient status: Inpatient. ECG RHYTHM: NSR --- FINDINGS LEFT VENTRICLE: The cavity size is normal. Wall thickness is mildly increased. Systolic function is normal by the biplane method of disks. The estimated ejection fraction is 68%. There are no regional wall motion abnormalities. Unable to assess LV diastolic function due to due to MAC and MV disease RIGHT VENTRICLE: The cavity size is mildly dilated. Systolic function is normal. Right ventricular systolic pressure is mildly increased. VENTRICULAR SEPTUM: There is no evidence of a ventricular septal defect. LEFT ATRIUM: The atrium is mildly dilated in visual appearance. RIGHT ATRIUM: The atrium is normal in size. ATRIAL SEPTUM: Color Doppler shows no evidence of shunt. MITRAL VALVE: Severely calcified annulus. Moderately thickened, mildly calcified leaflets. Mildly thickened and mildly calcified MV chords. Doppler: The findings are consistent with moderately severe stenosis. Findings are borderline for severe MS. There is mild, 1+ regurgitation. Valve area by pressure half-time: 1.7 cm2. Valve area by continuity equation (using LVOT flow): 1.5 cm2. Mean gradient (D): 12 mm Hg on average of multiple measurements. Peak gradient (D): 21 mm Hg. AORTIC VALVE: Structurally normal valve. Trileaflet. Doppler: There is trivial, less than 1+ regurgitation. TRICUSPID VALVE: Structurally normal valve. Doppler: There is mild, 1+ regurgitation. PULMONIC VALVE: Structurally normal valve. Doppler: There is trivial, less than 1+ regurgitation. AORTA: The aorta is normal. PULMONARY ARTERY: Main pulmonary artery: Normal. PERICARDIUM: A prominent pericardial fat pad is present. There is no pericardial effusion. SYSTEMIC VEINS: Not well visualized. Inferior vena cava: The vessel is normal. The IVC collapses by greater than 50% with inspiration. --- Measurements Left ventricle Value Reference LV ID, ED (L) 3.9 cm 4.2 - 5.9 LV ID, ES 2.5 cm --------- LV PW thickness, ED (H) 1.3 cm 0.6 - 1.0 LV end-diastolic volume, 1-p A4C 67 ml 67 - 155 LV end-systolic volume, 1-p A4C (L) 21 ml 22 - 58 LV end-diastolic volume, 2-p 81 ml 67 - 155 LV end-systolic volume, 2-p 26 ml 22 - 58 LV ejection fraction, 2-p 68 % >=55 LV E/e', lateral 30.7 --------- LV E/e', medial 36.6 --------- LV E/e', average 33.4 --------- Ventricular septum Value Reference IVS thickness, ED (H) 1.5 cm 0.6 - 1.0 LVOT Value Reference LVOT ID, A-P 2.2 cm --------- LVOT mean velocity, S 0.8 m/sec --------- LVOT VTI, S 22.5 cm --------- LVOT peak gradient, S 5 mm Hg --------- Stroke volume (SV), LVOT DP 84 ml --------- Stroke index (SV/bsa), LVOT DP 31 ml/m2 --------- Aorta Value Reference Aortic root ID, ED (sinus) 2.9 cm <4.4 Ascending aorta ID, max 2.9 cm --------- Ascending aorta ID, A-P, S 2.9 cm --------- Left atrium Value Reference LA volume/bsa, ES, 2-p 28 ml/m2 --------- Mitral valve Value Reference Mitral E-wave peak velocity 2 m/sec --------- Mitral A-wave peak velocity 1.9 m/sec --------- Mitral deceleration time 335 ms --------- Mitral pressure half-time 129 ms --------- Mitral mean gradient, D 14 mm Hg --------- Mitral peak gradient, D 21 mm Hg --------- Mitral E/A ratio, peak 1.0 --------- Mitral valve area, PHT, DP 1.7 cm2 --------- Mitral valve area, LVOT continuity 1.5 cm2 --------- Pulmonary arteries Value Reference PA pressure, S, DP 39 mm Hg --------- Tricuspid valve Value Reference Tricuspid regurg peak velocity 3 m/sec --------- Tricuspid peak RV-RA gradient 36 mm Hg --------- Right atrium Value Reference RA area, ES, A4C 14 cm2 10 - 18 Systemic veins Value Reference Estimated RAP 3 mm Hg --------- Right ventricle Value Reference RV ID, minor axis, ED, A4C base 4.1 cm 2.4 - 4.2 RV ID, minor axis, ED, A4C mid (H) 3.6 cm 2.0 - 3.5 TAPSE 2.9 cm --------- RV pressure, S, DP 39 mm Hg --------- RV s', lateral, S 2.92 m/sec --------- Legend: (L) and (H) shahram values outside specified reference range. Electronically signed by Noah Gonzalez MD 10/07/2018 10:27 Final Dictated: 10/07/2018 10:27 am Dictating Physician: MD GONZALEZ STEPHEN A Signed Date and Time: 10/07/2018 10:27 am Signed by: MD GONZALEZ STEPHEN A CTA CHEST W/ + W/O Observed: 10/07/2018 Status: F Source: [facility] CONTRAST 6:22 AM SYSTEM REPOSITORY Patient Name: ELIA WESTON CT Exam Date/Time 10/06/2018 14:10:00 EST Exam CTA Chest w/ + w/o Contrast Ordering Physician CHIDI ANDERSON KRISITN A. Accession Number [id number] CPT4 Codes 03946 (), Q9967 (CT ISOVUE 370MG/[id number]) Reason For Exam CHEST PAIN, ACUTE, PULMONARY EMBOLISM SUSPECTED Report CT ANGIOGRAPHY CHEST: CLINICAL INDICATION: Shortness of breath and chest pain with renal failure. Patient has a left femoral venous dialysis access catheter and peripheral IV in the right upper extremity TECHNIQUE: Transaxial sequence from apices through the bases during dynamic intravenous infusion of 75 mL of contrast media, injected at a high flow rate. Multiplanar and 3D MIP reconstruction was performed concurrently on an independent viewing workstation. Dose reduction was employed with automated exposure control. COMPARISON: Nuclear VQ scan from the same date FINDINGS: Exam quality: Nondiagnostic contrast enhancement of the vasculature. 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 There are numerous collateral vessels throughout the visualized chest wall anteriorly and posteriorly. There is no contrast enhancement of the pulmonary vessels. Aorta: Aorta demonstrates normal caliber. Evaluation for dissection is not possible. Lungs: Atelectasis is noted at the left lung base. There is some scattered reticular opacities without lobar consolidation. No parenchymal or pleural-based mass. Pleural fluid: None. Heart: Cardiac chambers demonstrate normal size. Calcification is noted in the region of the mitral annulus. Mediastinum/Michael: There is either calcification or a small amount contrast within the superior and cava. There is minimal contrast in the azygos vein which is enlarged. There is no mediastinal or hilar mass. Few small prevascular space lymph nodes are identified in the normal size range. Soft tissues chest wall/Neck base: Extensive collateral vessels are noted throughout the subcutaneous soft tissues. Upper abdomen: No abnormality throughout the visualized portions of liver. No abnormality throughout the spleen. Adrenals are unremarkable. Osseous structures: S-shaped scoliosis is noted. IMPRESSION: 1. Nondiagnostic evaluation of the pulmonary vasculature probably due to occlusion of the right subclavian vein. 2. Nondiagnostic evaluation for aortic dissection. 3. Some scattered reticular opacities throughout the lungs may reflect some mild interstitial edema but no consolidation or pleural fluid is noted. Report Dictated on Workstation: [id number] Final Dictating Physician: MD FRY JEFFREY Signed Date and Time: 10/07/2018 6:28 am Signed by: MD FRY JEFFREY Transcribed Date and Time: 10/07/2018 6:29 HEMOGRAM Collected: 10/07/2018 Status: F Source: [facility] 5:08 AM SYSTEM REPOSITORY TYPE CODE TESTS RESULT OUT OF RANGE REFERENCE UNITS LAB IWBC 3.6-10.7 10*3/uL WBC Normal 3.8 LAB RBC 4.40-5.90 10*6/uL Low RBC 3.46 LAB HGB 13.0-18.0 g/dL Low Hemoglobin 9.9 LAB HCT 40.0-52.0 % Low Hematocrit 31.4 LAB MCV 80.0-98.0 fL MCV Normal 90.8 LAB MCH 26.0-34.0 pg MCH Normal 28.6 LAB MCHC 32.0-36.0 % Low MCHC 31.5 LAB RDW 11.5-14.5 % High RDW 18.8 LAB PLT 140-440 10*3/uL Low Platelet 138 LAB MPV 7.4-10.4 fL MPV Normal 9.1 Performed By: #### HEMOG, BMP3, MG3, LIPD2 #### [facility] [address] [place] [address] BASIC METABOLIC PANEL Collected: 10/07/2018 Status: F Source: [facility] 5:08 AM SYSTEM REPOSITORY TYPE CODE TESTS RESULT OUT OF RANGE REFERENCE UNITS LAB NA3 135-145 mmol/L Sodium Normal 140 LAB K3 3.5-5.1 mmol/L High Potassium 5.3 LAB CL3 98-107 mmol/L Chloride Normal 100 LAB CO23 22-30 mmol/L Carbon Normal Dioxide 28 LAB ANIN3 NA Anion Gap 12 LAB GLUC3 70-100 mg/dL Glucose Normal 98 LAB BUN3 7-20 mg/dL High Urea Nitrogen 49 LAB CRET3 0.52-1.25 mg/dL High Creatinine 10.11 LAB GF3BR >60 mL/min eGFR 7.1 LAB GF3WR >60 mL/min eGFR OTHER 5.8 Result Comment: Source- MDRD equation with creatinine calibration to IDMS(NKDEP) eGFR not recommended for drug dose adjustment LAB CA3 8.4-10.4 mg/dL Low Calcium 8.1 Performed By: #### HEMOG, BMP3, MG3, LIPD2 #### [facility] [address] [place] [address] MAGNESIUM Collected: 10/07/2018 Status: F Source: [facility] 5:08 AM SYSTEM REPOSITORY TYPE CODE TESTS RESULT OUT OF RANGE REFERENCE UNITS LAB MG3 1.6-2.3 mg/dL Normal Magnesium 2.0 Performed By: #### HEMOG, BMP3, MG3, LIPD2 #### [facility] [address] [place] [address] LIPID PANEL Collected: 10/07/2018 Status: F Source: [facility] 5:08 AM SYSTEM REPOSITORY TYPE CODE TESTS RESULT OUT OF REFERENCE UNITS RANGE LAB 3CHOL < 200 mg/dL Cholesterol Normal 145 LAB 3TRIG <150 mg/dL Triglyceride Normal 108 LAB HDLC 40-60 mg/dL Low HDL Cholesterol 31 LAB LDL4 <100 mg/dL Low Density Normal Lipoprotein 92 LAB CHLHD NA Chol/HDL 5 Result Comment: Ref Range: < 3 Low Risk for CHD 3-6 Mod Risk for CHD > 6 High Risk for CHD Performed By: #### HEMOG, BMP3, MG3, LIPD2 #### [facility] [address] [place] [address] Observed: 10/06/2018 Status: F Source: [employer] BLOOD (TWO) 9:56 PM SYSTEM REPOSITORY Order Comment: Specimen Source Comment:Blood CULTURE BLOOD (Two) --> Status: F Staphylococcus species (probable Coagulase negative Staph) ? DETECTED mecA (methicillin resistance gene) ? NOT DETECTED Proteus species ? DETECTED NOTE: This organism was detected by PCR but was not isolated using traditional culture methods. Detection of Proteus species via non-viable nucleic acid is a known manufacturing issue which can cause false positives in some blood culture bottles. Presumptive identification performed using Min[employer]Buzz PCR methodology; confirmatory identification to follow. The following targets were NOT DETECTED unless otherwise stated above in report: Staphylococcus aureus, Staphylococcus species, Enterococcus species, Streptococcus species, Streptococcus agalactiae (Group B), Streptococcus pneumoniae, Streptococcus pyogenes (Group A), Listeria monocytogenes, Acinetobacter baumannii, Enterobacteriaceae, Enterobacter cloacae complex, E. coli, Klebsiella oxytoca, Klebsiella pneumoniae, Proteus species, Serratia marcescens, Pseudomonas aeruginosa, Haemophilus influenzae, Neisseria meningitidis, Galilea albicans, Galilea glabrata, Galilea krusei, Galilea parapsilosis, Galilea tropicalis. The following antibiotic resistance targets were NOT DETECTED unless otherwise stated above in report: mecA (methicillin resistance gene) and van A/B (vancomycin resistance gene). DETECTED mecA (methicillin resistance gene) ? NOT DETECTED Proteus species ? DETECTED NOTE: This organism was detected by PCR but was not isolated using traditional culture methods. Detection of Proteus species via non-viable nucleic acid is a known manufacturing issue which can cause false positives in some blood culture bottles. Presumptive identification performed using MinubeArray PCR methodology; confirmatory identification to follow. The following targets were NOT DETECTED unless otherwise stated above in report: Staphylococcus aureus, Staphylococcus species, Enterococcus species, Streptococcus species, Streptococcus agalactiae (Group B), Streptococcus pneumoniae, Streptococcus pyogenes (Group A), Listeria monocytogenes, Acinetobacter baumannii, Enterobacteriaceae, Enterobacter cloacae complex, E. coli, Klebsiella oxytoca, Klebsiella pneumoniae, Proteus species, Serratia marcescens, Pseudomonas aeruginosa, Haemophilus influenzae, Neisseria meningitidis, Galilea albicans, Galilea glabrata, Galilea krusei, Galilea parapsilosis, Galilea tropicalis. The following antibiotic resistance targets were NOT DETECTED unless otherwise stated above in report: mecA (methicillin resistance gene) and van A/B (vancomycin resistance gene). 1 Organism (Coagulase-negative) Staphylococcus epidermidis Isolated: Contamination likely unless additional blood culture sets are found to be positive with the same organism. Performed By: #### C/BLT #### [facility] [address] [id number] Observed: 10/06/2018 Status: F Source: [facility] CULTURE BLOOD 9:56 PM SYSTEM REPOSITORY Order Comment: Specimen Source Comment:Blood CULTURE BLOOD --> Status: F No growth at 5 days. Performed By: #### C/BLD #### [facility] [address] [place] [id number] NM PULMONARY Observed: Status: F Source: [employer] VENTILATION/PERFUSION 10/06/2018 6:12 PM [facility] REPOSITORY Patient Name: ELIA WESTON Nuc Med Exam Date/Time 10/06/2018 17:34:58 EST Exam NM Pulmonary Ventilation/Perfusion Ordering Physician MD [facility] Accession Number [id number] CPT4 Codes 12117 (), A9567 () Reason For Exam CHEST PAIN, ACUTE, PULMONARY EMBOLISM SUSPECTED Report Examination: VQ scan Clinical Indication: Chest pain, concern for pulmonary embolus Comparison: Correlation with chest x-ray 10/06/2017 Findings: Patient was administered and inhalational 44.4 mCi equivalent dose of technetium 99m DTPA aerosol. The patient ventilated twice. Patient was subsequently injected with 4.1 mCi of technetium 99m macroaggregated albumin. Both ventilation and perfusion images were obtained in multiple planes. There is homogenous uptake of ventilatory and perfusion radiopharmaceutical. On the left posterior oblique perfusion image, there is a small nonsegmental perfusion defect. Otherwise there is no ventilation/perfusion mismatch to suggest pulmonary embolus. Impression: On the left posterior oblique perfusion image, there is a small nonsegmental perfusion defect. Otherwise there is no ventilation/perfusion mismatch to suggest pulmonary embolus. Low probability of pulmonary embolism by the modified PIOPED criteria. Report Dictated on Final Dictating Physician: MD MCINTYRE JASON Signed Date and Time: 10/06/2018 6:21 pm Signed by: MD MCINTYRE JASON Transcribed Date and Time: 10/06/2018 6:22 XA SPECIAL ANGIOGRAPHY Observed: 10/06/2018 Status: F Source: [facility] PROCEDURE 2:35 PM SYSTEM REPOSITORY Patient Name: ELIA WESTON Special Procedures Exam Date/Time 10/06/2018 10:26:09 EST Exam XA Special Angiography Procedure Ordering Physician MD RAN, KEYLA TREVIÑO Accession Number [id number] Reason For Exam DIALYSIS CATHETER EXCHANGE / CLOTTED ON VENOUS LINE Report FLUOROSCOPIC GUIDED TUNNELED DIALYSIS CATHETER EXCHANGE. CLINICAL HISTORY: Left groin tunneled hemodialysis catheter dysfunction Fluoroscopy time: 0.3 minutes Angiographic runs: 0 Fluoroscopic spot images: Two Procedural details: The benefits and risks of the procedure were explained to the patient and the patient signed informed consent. The patient was brought into the interventional radiology suite and placed supine on the table. An audible timeout was performed. The patient's left groin tunneled hemodialysis catheter and surrounding skin were prepped and draped in the usual sterile fashion. Maximal sterile barrier technique was utilized. All elements of maximal sterile barrier technique including hand hygiene, a mask, hat, sterile gown, sterile gloves, and large sterile sheet were utilized. Betadine antiseptic was utilized for skin sterilization. Attempts were made to flush and draw from both lumens of the existing catheter. The venous lumen flushed and aspirated appropriately. The arterial lumen would flush, but would not aspirate adequately. The decision was therefore made to exchange the catheter for a new longer catheter now terminating in the inferior vena cava. The subcutaneous tissues surrounding the catheter exit site and tunnel were anesthetized using 1 % lidocaine injection. Next, a stiff 0.035 inch Glidewire were advanced through both lumens of the existing tunneled hemodialysis catheter and into the inferior vena cava. The subcutaneous cuff was then freed from the subcutaneous cutaneous tissues using blunt dissection. The catheter was then exchanged over the wire for a new tunneled hemodialysis catheter. Fluoroscopy confirmed that the catheter tip terminates in the inferior vena cava. Both lumens of the catheter flushed and aspirated appropriately. The catheter was then sutured to the patient's skin using 2-0 silk suture. The patient tolerated the procedure well, but did describe mild palpitations and it was noted that his heart rate was in the high 120s/low 130s beats per minute on the monitor. His blood pressure remained unchanged and stable. The patient denied chest pain, shortness of breath, or dizziness. The patient was transferred to the recovery area in stable condition. IMPRESSION: 1. Successful fluoroscopic guided exchange of a tunneled hemodialysis catheter. The catheter is ready for use. Report Dictated on Final Dictating Physician: MD CHÁVEZ GEORGE RICHARD Signed Date and Time: 10/06/2018 2:42 pm Signed by: MD CHÁVEZ GEORGE RICHARD Transcribed Date and Time: 10/06/2018 2:43 D-DIMER, INNOVANCE Collected: 10/06/2018 Status: F Source: [facility] 1:59 PM SYSTEM REPOSITORY TYPE CODE TESTS RESULT OUT OF REFERENCE UNITS RANGE LAB 2DDI 0.00-0.50 mg/L High D-Dimer, 1.76 Innovance Result Comment: Innovance D-Dimer values of <0.50 mg/L FEU can be used in combination with a pre-test probability model (e.g. Well's) to exclude pulmonary embolism (PE) disease, as well as an aid in the diagnosis of deep vein thrombosis (DVT). Performed By: #### DDI2 #### [facility] [address] [place] [address] CR CHEST PORTABLE Observed: 10/06/2018 Status: F Source: [facility] 12:52 PM SYSTEM REPOSITORY Patient Name: ELIA WESTON Diagnostic Radiology Exam Date/Time 10/06/2018 12:30:30 EST Exam CR Chest Portable Ordering Physician CHIDI ANDERSON KRISITN A. Accession Number [id number] CPT4 Codes 61723 () Reason For Exam CP, SOB Report EXAM TYPE: RADIOLOGIC EXAMINATION, CHEST, SINGLE VIEW FRONTAL (CXR SINGLE VIEW) EXAM DATE AND TIME: 10/06/2018 12:30 PM EST INDICATION: As pain, shortness of breath COMPARISON: None available. TECHNIQUE: A single frontal view of the thorax was obtained and reviewed. Special views: None. FINDINGS: 1. Lines/Tubes/Devices/Hardware: None. 2. Lungs: No consolidation. Pulmonary vascular congestion without overt edema. 3. Pleura: No pneumothorax or large pleural effusions. 4. Heart and mediastinum: Normal cardiomediastinal contours given portable AP technique. 5. Osseous structures: Dextroconvex curvature of the lower thoracic spine. IMPRESSION: No consolidation. Pulmonary vascular congestion without overt edema. No large effusion. Report Dictated on Final Dictating Physician: MD THOMPSON NEIL Signed Date and Time: 10/06/2018 12:53 pm Signed by: MD THOMPSON NEIL Transcribed Date and Time: 10/06/2018 12:54 HEMOGRAM W/ AUTODIFF Collected: 10/06/2018 Status: F Source: [facility] 12:17 PM SYSTEM REPOSITORY TYPE CODE TESTS RESULT OUT OF REFERENCE UNITS RANGE LAB IWBC 3.6-10.7 10*3/uL Low WBC 3.4 LAB RBC 4.40-5.90 10*6/uL Low RBC 3.67 LAB HGB 13.0-18.0 g/dL Low Hemoglobin 10.5 LAB HCT 40.0-52.0 % Low Hematocrit 32.9 LAB MCV 80.0-98.0 fL MCV Normal 89.9 LAB MCH 26.0-34.0 pg MCH Normal 28.6 LAB MCHC 32.0-36.0 % Low MCHC 31.8 LAB RDW 11.5-14.5 % RDW High 18.8 LAB PLT 140-440 10*3/uL Platelet Normal 174 LAB MPV 7.4-10.4 fL MPV Normal 9.2 LAB GRAN% 40.0-80.0 % Granulocytes Normal 57.7 LAB LYMP% 20.0-40.0 % Low Lymphocytes 18.8 LAB MONO% 2.0-10.0 % Monocytes High 20.0 LAB EOS% 1.0-6.0 % Eosinophils Normal 2.5 LAB BAS% 0.0-2.0 % Basophils Normal 1.0 LAB ANC 1.8-7.0 10*3/uL Abs Normal Neutrophile Cnt 2.0 LAB ALC 1.0-4.3 10*3/uL Low Abs Lymph Cnt 0.6 LAB AMC 0.0-0.8 10*3/uL Abs Monocyte Normal Cnt 0.7 LAB AEC 0.0-0.5 10*3/uL Abs Eosin Cnt Normal 0.1 LAB ABC 0.0-0.2 10*3/uL Abs Baso Cnt Normal 0.0 Performed By: #### HEMDF, BMP3, BNP3, TROPN, TSH5 #### [facility] [address] [place] [address] BASIC METABOLIC PANEL Collected: 10/06/2018 Status: F Source: [facility] 12:17 PM SYSTEM REPOSITORY TYPE CODE TESTS RESULT OUT OF RANGE REFERENCE UNITS LAB NA3 135-145 mmol/L Sodium Normal 141 LAB K3 3.5-5.1 mmol/L High Potassium 5.5 LAB CL3 98-107 mmol/L Low Chloride 96 LAB CO23 22-30 mmol/L High Carbon Dioxide 33 LAB ANIN3 NA Anion Gap 12 LAB GLUC3 70-100 mg/dL High Glucose 105 LAB BUN3 7-20 mg/dL High Urea Nitrogen 48 LAB CRET3 0.52-1.25 mg/dL High Creatinine 10.87 LAB GF3BR >60 mL/min eGFR 6.5 LAB GF3WR >60 mL/min eGFR OTHER 5.4 Result Comment: Source- MDRD equation with creatinine calibration to IDMS(NKDEP) eGFR not recommended for drug dose adjustment LAB CA3 8.4-10.4 mg/dL Low Calcium 8.2 Performed By: #### HEMDF, BMP3, BNP3, TROPN, TSH5 #### [facility] [address] [place] [address] NT PRO BNP Collected: 10/06/2018 Status: F Source: [facility] 12:17 PM SYSTEM REPOSITORY TYPE CODE TESTS RESULT OUT OF RANGE REFERENCE UNITS LAB BNP3 0-125 pg/mL High NT pro 6163 BNP Performed By: #### HEMDF, BMP3, BNP3, TROPN, TSH5 #### [facility] [address] [place] [address] TROPONIN I Collected: 10/06/2018 Status: F Source: [facility] 12:17 PM SYSTEM REPOSITORY TYPE CODE TESTS RESULT OUT OF RANGE REFERENCE UNITS LAB TROP4 0.000-0.034 ng/mL Normal Troponin I < 0.012 Result Comment: 0.046 - 0.400 = Indeterminate > 0.400 = Consider Myocardial Injury Performed By: #### HEMDF, BMP3, BNP3, TROPN, TSH5 #### [facility] [address] [place] [address] THYROID STIM. Collected: 10/06/2018 Status: F Source: [facility] HORMONE 12:17 PM SYSTEM REPOSITORY TYPE CODE TESTS RESULT OUT OF RANGE REFERENCE UNITS LAB TSH5 0.465-4.680 u[IU]/mL Normal Thyroid Stim. 3.917 Hormone Performed By: #### HEMDF, BMP3, BNP3, TROPN, TSH5 #### [facility] [address] [place] [address] ED PROVIDER NOTE Observed: 10/06/2018 Status: F Source: [facility] 11:46 AM SYSTEM REPOSITORY Attending Note I have personally performed a face to face assessment of the patient and have reviewed the DIMPLE note. My mendoza findings include: History: Patient sent from interventional radiology, as he was tachycardic, he is having some chest pain. He had exchange of his LEFT groin dialysis catheter done today. He did have dialysis yesterday. Otherwise he is reporting intermittent hematuria but he reports that he has seen a urologist for this. Physical exam: Cardiovascular examination: Regular rhythm, tachycardia, normal S1 and S2. Pulmonary examination: Initial breath sounds in all lung page Assessment and plan: Chest x-ray shows fluid overload. Potassium is mildly elevated. Calcium IV was ordered. Tish microsoft solutions architect. [id number] Nichole from nephrology, he is going to page a different microsoft solutions architect who covers him Signature: MITRA MCKEON MD EKG Interpretation Interpreted by emergency department physician Rhythm: normal sinus Rate: normal [place]: normal Ectopy: none Conduction: normal ST Segments: no acute change T Waves: no acute change Q Waves: atero-lateral leads MITRA MCKEON Per nephrology the patient will be dialyzed for fluid overload. Admit The primary encounter diagnosis was Cardiorenal syndrome with renal failure, stage 5 chronic kidney disease or end stage renal disease, with heart failure (HCC). Diagnoses of Hypervolemia, unspecified hypervolemia type and Hyperkalemia were also pertinent to this visit. Mitra Mckeon MD 10/06/18 1455 ED PROVIDER NOTE Observed: 10/06/2018 Status: F Source: [facility] 11:46 AM SYSTEM REPOSITORY Attestation signed by Mitra Mckeon MD at 10/08/2018 11:52 AM See my note [facility] Patient: Elia [facility] : 1980 Date of Evaluation: 10/06/2018 ED DIMPLE Provider: ALMA ROSA Pachecoare was supervised by Dr. Mckeon who independently examined and evaluated the patient. Please see their attestation note for further details. Chief Complaint Chief Complaint Patient presents with ? Tachycardia [place] Elia Weston is a 38 y.o. male whopresents to the emergency department For evaluation of tachycardia associated with palpitations. [facility], he was having his LEFT groin tunneled dialysis catheter replaced under fluoroscopy. Patient states that as soon as the procedure ended he felt some palpitations, his heart rate was noted to be 120s to 130s per chart records. Per records, before the procedure patient's heart rate was in the 90s. Patient states that since his procedure, he has had increased shortness of breath with lying flat, he has chest pain on his RIGHT side that radiates towards the midline. States it is slightly worse with inspiration. She does have a history of pulmonary embolisms, is not currently anticoagulated. States that the pain he is expecting the present time is not as severe as previous pulmonary embolism. Denies any fevers or chills, cough, congestion. Denies any calf pain or swelling. No recent travel, trauma. Eyes any abdominal pain, nausea, vomiting. No significant back or flank pain. Patient's medical history includes end-stage renal disease, is on hemodialysis Friday, Friday, Friday, history of pulmonary embolism, history of hypertension. Former smoker. ROS: Review of Systems At least 10 systems reviewed and otherwise acutely negative except as in the [place]. Past History Past Medical History: Diagnosis Date ? ESRD (end stage renal disease) ([facility]) KIDNEY TRANSPLANT LIST ? Hemodialysis patient ([facility]) FRIDAY, FRIDAY AND FRIDAY IN [place] ? Hx of blood clots 2016 PE ? Hypertension NO MEDICATION ? Morbidly obese ([facility]) 10/06/2018 BMI 41.59 ? YEIMY (obstructive sleep apnea) Past Surgical History: Procedure Laterality Date ? CLEFT PALATE REPAIR ? COLONOSCOPY Social History Social History ? Marital status: Spouse name: N/A ? Number of children: N/A ? Years of education: N/A Social History Main Topics ? Smoking status: Former Smoker Years: 15.00 Types: Cigars ? Smokeless tobacco: Never Used ? Alcohol use No ? Drug use: Yes Types: Marijuana Comment: years ago ? Sexual activity: Not Asked Other Topics Concern ? None Social History Narrative ? None Medications/Allergies Previous Medications CINACALCET (SENSIPAR) 60 MG TABLET Take 120 mg by mouth every other day 2 tablets FERRIC CITRATE (AURYXIA) 1 GM 210 MG(FE) TABS Take 3 tablets by mouth 3 times daily IBUPROFEN (ADVIL;MOTRIN) 200 MG CAPS Take 1 capsule by mouth daily No Known Allergies Physical Exam ED Triage Vitals [10/06/18 1155] BP Temp Temp Source Pulse Resp SpO2 Height Weight (!) 139/97 97.9 ?F (36.6 ?C) Oral 93 20 95 % -- -- Physical Exam General: Well developed, well nourished. Neurologic: A&Ox3. HEENT: Normocephalic, atraumatic. Neck: supple, full ROM. Eyes: Conjunctiva clear. Extra-occular eye movements intact. Cardiac: Slightly tachycardic, regular rate, no murmurs/rubs/gallops. Pulmonary: Clear to auscultation bilaterally. Non-labored breathing, speaks in full sentences. Abdomen:Normal active bowel sounds present in all areas. Soft, non-tender to palpation. No rebound/rigidity/guarding. Extremities: non-edematous Skin: warm/dry. Psychiatric: Appropriate mood for chief complaint, cooperative with examination. Diagnostics Labs: Results for orders placed or performed during the hospital encounter of 10/06/18 CBC Auto Differential Result Value Ref Range WBC 3.4 (L) 3.6 - 10.7 10*3/uL RBC 3.67 (L) 4.40 - 5.90 10*6/uL Hemoglobin 10.5 (L) 13.0 - 18.0 g/dL Hematocrit 32.9 (L) 40.0 - 52.0 % MCV 89.9 80.0 - 98.0 fL MCH 28.6 26.0 - 34.0 pg MCHC 31.8 (L) 32.0 - 36.0 % RDW 18.8 (H) 11.5 - 14.5 % Platelets 174 140 - 440 10*3/uL MPV 9.2 7.4 - 10.4 fL Granulocytes % 57.7 40.0 - 80.0 % Lymphocyte % 18.8 (L) 20.0 - 40.0 % Monocytes 20.0 (H) 2.0 - 10.0 % Eosinophils 2.5 1.0 - 6.0 % Basophils 1.0 0.0 - 2.0 % Absolute Neut # 2.0 1.8 - 7.0 10*3/uL Absolute Lymph # 0.6 (L) 1.0 - 4.3 10*3/uL Absolute [place] # 0.7 0.0 - 0.8 10*3/uL Absolute Eos # 0.1 0.0 - 0.5 10*3/uL Absolute Baso # 0.0 0.0 - 0.2 10*3/uL Basic Metabolic Panel Result Value Ref Range Sodium 141 135 - 145 mmol/L Potassium 5.5 (H) 3.5 - 5.1 mmol/L Chloride 96 (L) 98 - 107 mmol/L CO2 33 (H) 22 - 30 mmol/L Anion Gap 12 NA Glucose 105 (H) 70 - 100 mg/dL BUN 48 (H) 7 - 20 mg/dL CREATININE 10.87 (H) 0.52 - 1.25 mg/dL eGFR 6.5 >60 mL/min EGFR IF NonAfrican Australian 5.4 >60 mL/min Calcium 8.2 (L) 8.4 - 10.4 mg/dL TROPONIN Result Value Ref Range Troponin I <0.012 0.000 - 0.034 ng/mL Brain Natriuretic Peptide Result Value Ref Range NT Pro-BNP 6,163 (H) 0 - 125 pg/mL TSH without Reflex Result Value Ref Range TSH 3.917 0.465 - 4.680 u[IU]/mL D-Dimer, Quantitative Result Value Ref Range D-Dimer, Quant 1.76 (H) 0.00 - 0.50 mg/L Radiographs: Xr Chest Portable Result Date: 10/06/2018 Patient Name: ELIA WESTON ---Diagnostic Radiology--- Exam Date/Time 10/06/2018 12:30:30 EST Exam CR Chest Portable Ordering Physician CHIDI ANDERSON KRISITN A. Accession Number [id number] CPT4 Codes 36340 () Reason For Exam CP, SOB Report EXAM TYPE: RADIOLOGIC EXAMINATION, CHEST, SINGLE VIEW FRONTAL (CXR SINGLE VIEW) EXAM DATE AND TIME: 10/06/2018 12:30 PM EST INDICATION: As pain, shortness of breath COMPARISON: None available. TECHNIQUE: A single frontal view of the thorax was obtained and reviewed. Special views: None. FINDINGS: 1. Lines/Tubes/Devices/Hardware: None. 2. Lungs: No consolidation. Pulmonary vascular congestion without overt edema. 3. Pleura: No pneumothorax or large pleural effusions. 4. Heart and mediastinum: Normal cardiomediastinal contours given portable AP technique. 5. Osseous structures: Dextroconvex curvature of the lower thoracic spine. IMPRESSION: No consolidation. Pulmonary vascular congestion without overt edema. No large effusion. Report Dictated on --- Final --- Dictating Physician: MD THOMPSON NEIL Signed Date and Time: 10/06/2018 12:53 pm Signed by: MD THOMPSON NEIL Transcribed Date and Time: 10/06/2018 12:54 Xa Special Angiography Procedure Result Date: 10/06/2018 Patient Name: ELIA WESTON ---Special Procedures--- Exam Date/Time 10/06/2018 10:26:09 EST Exam XA Special Angiography Procedure Ordering Physician MD RAN, KEYLA TREVIÑO Accession Number [id number] Reason For Exam DIALYSIS CATHETER EXCHANGE / CLOTTED ON VENOUS LINE Report FLUOROSCOPIC GUIDED TUNNELED DIALYSIS CATHETER EXCHANGE. CLINICAL HISTORY: Left groin tunneled hemodialysis catheter dysfunction Fluoroscopy time: 0.3 minutes Angiographic runs: 0 Fluoroscopic spot images: Two Procedural details: The benefits and risks of the procedure were explained to the patient and the patient signed informed consent. The patient was brought into the interventional radiology suite and placed supine on the table. An audible timeout was performed. The patient's left groin tunneled hemodialysis catheter and surrounding skin were prepped and draped in the usual sterile fashion. Maximal sterile barrier technique was utilized. All elements of maximal sterile barrier technique including hand hygiene, a mask, hat, sterile gown, sterile gloves, and large sterile sheet were utilized. Betadine antiseptic was utilized for skin sterilization. Attempts were made to flush and draw from both lumens of the existing catheter. The venous lumen flushed and aspirated appropriately. The arterial lumen would flush, but would not aspirate adequately. The decision was therefore made to exchange the catheter for a new longer catheter now terminating in the inferior vena cava. The subcutaneous tissues surrounding the catheter exit site and tunnel were anesthetized using 1 % lidocaine injection. Next, a stiff 0.035 inch Glidewire were advanced through both lumens of the existing tunneled hemodialysis catheter and into the inferior vena cava. The subcutaneous cuff was then freed from the subcutaneous cutaneous tissues using blunt dissection. The catheter was then exchanged over the wire for a new tunneled hemodialysis catheter. Fluoroscopy confirmed that the catheter tip terminates in the inferior vena cava. Both lumens of the catheter flushed and aspirated appropriately. The catheter was then sutured to the patient's skin using 2-0 silk suture. The patient tolerated the procedure well, but did describe mild palpitations and it was noted that his heart rate was in the high 120s/low 130s beats per minute on the monitor. His blood pressure remained unchanged and stable. The patient denied chest pain, shortness of breath, or dizziness. The patient was transferred to the recovery area in stable condition. IMPRESSION: 1. Successful fluoroscopic guided exchange of a tunneled hemodialysis catheter. The catheter is ready for use. Report Dictated on --- Final --- Dictating Physician: MD CHÁVEZ GEORGE RICHARD Signed Date and Time: 10/06/2018 2:42 pm Signed by: MD CHÁVEZ GEORGE RICHARD Transcribed Date and Time: 10/06/2018 2:43 Procedures: None. EKG: All EKG's areinterpreted by the Emergency Department Physician in the absence of a driller operator.?Please see their note for interpretation of EKG. ED Course and MDM In brief, Elia Weston nova 38 y.o. male who presented to the emergency department for evaluation of tachycardia/palpitations, occurred after having dialysis catheter replaced this morning. Initial heart rate is slightly tachycardic in the low 100s, EKG is sinus rhythm, PA-C attending physician's note for the full interpretation. Chest x-ray does demonstrate fluid overload, did personally this imaging study. Blood work is indicated potassium of 5.5, calcium gluconate was given. Patient's [employer] solutions architect was contacted, will be setting patient up to have dialysis today. BNP is greater than 6000. D-dimer was added onto this patient's workup, found to be marginally elevated. Patient taken to CAT scan, there is no tissue with his IV in unable to perform the study to rule out coronary embolism. At this time, the perfusion study has been ordered by Dr. Mckeon. Case was later discussed with the IMS, Dr. Gray, who agrees to accept this patient to her service for evaluation and treatment. All findings have been discussed. Patient is also agreeable to plan. He is in no acute distress and reevaluation, her rate is 97 at this time. ED Medication Orders Start Ordered Status Ordering Provider 10/06/18 1257 10/06/18 1256 calcium chloride 1 g in sodium chloride 0.9 % 100 mL IVPB ONCE Last NOV action: Stopped - by LÓPEZ BARNES on 10/06/18 at 1530 MITRA MCKEON 10/06/18 1257 10/06/18 1256 nitroglycerin (NITRO-BID) 2 % ointment 0.5 inch ONCE Last NOV action: Not Given - by JENNY PEGUERO on 10/06/18 at 1400 MCKEON, MITRA 10/06/18 1224 10/06/18 1224 iopamidol (ISOVUE-370) 76 % injection 75 mL IMG ONCE PRN Last NOV action: Given - by PEARL MAHONEY on 10/06/18 at 1313 MCKEON, MITRA 10/06/18 1217 10/06/18 1216 aspirin chewable tablet 324 mg ONCE Last NOV action: Given - by VIDHYA CASTRO on 10/06/18 at 1221 JONH MAHARAJ Final Impression 1. Cardiorenal syndrome with renal failure, stage 5 chronic kidney disease or end stage renal disease, with heart failure (HCC) 2. Hypervolemia, unspecified hypervolemia type 3. Hyperkalemia DISPOSITION Admitted 10/06/2018 04:11:29 PM (Please note that portions of this note may have been completed with a voice recognition program. Efforts were made to edit the dictations but occasionally words aremis-transcribed.) Jonh Maharaj PA-C [employer] Jonh Maharaj PA-C 10/06/18 1615 HEMOGRAM Collected: 10/06/2018 Status: F Source: [facility] 8:30 AM SYSTEM REPOSITORY TYPE CODE TESTS RESULT OUT OF RANGE REFERENCE UNITS LAB IWBC 3.6-10.7 10*3/uL WBC Normal 4.2 LAB RBC 4.40-5.90 10*6/uL Low RBC 3.65 LAB HGB 13.0-18.0 g/dL Low Hemoglobin 10.5 LAB HCT 40.0-52.0 % Low Hematocrit 33.1 LAB MCV 80.0-98.0 fL MCV Normal 90.8 LAB MCH 26.0-34.0 pg MCH Normal 28.9 LAB MCHC 32.0-36.0 % Low MCHC 31.8 LAB RDW 11.5-14.5 % High RDW 19.2 LAB PLT 140-440 10*3/uL Platelet Normal 186 LAB MPV 7.4-10.4 fL MPV Normal 9.3 Performed By: #### HEMOG, PT #### [employer] [address] [place] [address] PROTHROMBIN TIME Collected: 10/06/2018 Status: F Source: [facility] 8:30 AM SYSTEM REPOSITORY TYPE CODE TESTS RESULT OUT OF REFERENCE UNITS RANGE LAB PROTM 9.0-12.0 s Prothrombin Normal Time 11.4 Result Comment: . LAB INR 0.9-1.1 NA Normal INR 1.1 Result Comment: Recommended Anticoagulant Therapy: SEE BELOW ----- INR of 2.0 - 3.0 : - Prophylaxis of Venous Thrombosis (high-risk surgery) - Treatment of Venous Thrombosis - Treatment of Pulmonary Embolism (Includes tissue heart valves, Acute Myocardial Infarction to prevent systemic embolism, Valvular Heart Disease, and Atrial Fibrillation) ----- INR of 2.5 - 3.5 : - Mechanical Prosthetic Valves (high risk) - If oral 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 therapy is used to prevent Myocardial Infarction Performed By: #### HEMOG, PT #### [employer] [address] [place] [address] 12 LEAD ELECTROCARDIOGRAM Observed: 09/23/2018 Status: F Source: [facility] 2:57 PM [facility] REPOSITORY [facility] Cardiovascular Services [address] [place] [address] 12 Lead EKG 09/18/18 0729 MR#: [id number] Acct: [id number] Name: ELIA WESTON Rep #: [id number] : 1980 38 From: Maxi Johns MD Attending Dr: Wild Collins MD Status: DIS IN Ordering Dr: Lela Tsang Date: 09/18/18 Location: [facility] Sex: M AA Admitted: 09/17/18 Test Reason : Blood Pressure : / mmHG Vent. Rate : 077 BPM Atrial Rate : 104 BPM P-R Int : 000 ms QRS Dur : 068 ms QT Int : 368 ms P-R-T Axes : 065 103 090 degrees QTc Int : 416 ms Sinus tachycardia with 2nd degree A-V block (Mobitz I) with Premature ventricular complexes or Fusion complexes Rightward axis Pulmonary disease pattern Abnormal ECG When compared with ECG of 17-SEP-2018 09:55, MANUAL COMPARISON REQUIRED, DATA IS UNCONFIRMED Confirmed by MAXI JOHNS ([id number]), online content editor REYNA PAULINO ([id number]) on 09/23/2018 2:57:08 PM Referred By: Bree Fernandes Confirmed By:MAXI JOHNS 09/23/18 8576 Date Maxi Johns MD CC: YVONNE Tsang; Wild Collins MD; Avinash Banda MD; Bree Fernandes MD Signed 12 LEAD ELECTROCARDIOGRAM Observed: 09/23/2018 Status: F Source: [place] 2:56 PM [facility] REPOSITORY [facility] Cardiovascular Services [address] [place] [address] 12 Lead EKG 09/17/18 0955 MR#: [id number] Acct: [id number] Name: ELIA WESTON Rep #: [id number] : 1980 38 From: Maxi Johns MD Attending Dr: Wild Collins MD Status: DIS IN Ordering Dr: Wild Collins MD Date: 09/17/18 Location: [facility] Sex: M AA Admitted: 09/17/18 Test Reason : CP Blood Pressure : / mmHG Vent. Rate : 124 BPM Atrial Rate : 120 BPM P-R Int : 000 ms QRS Dur : 082 ms QT Int : 296 ms P-R-T Axes : 000 139 051 degrees QTc Int : 425 ms Accelerated Junctional rhythm with retrograde conduction Right axis deviation Pulmonary disease pattern Septal infarct , age undetermined Abnormal ECG When compared with ECG of 16-SEP-2018 18:01, MANUAL COMPARISON REQUIRED, DATA IS UNCONFIRMED Confirmed by MAXI JOHNS ([id number]), online content editor REYNA PAULINO ([id number]) on 09/23/2018 2:55:50 PM Referred By: Bree Fernandes Confirmed By:MAXI JOHNS 09/23/18 1455 Date Maxi Johns MD CC: Wild Collins MD; Avinash Banda MD; Bree Fernandes MD Signed 12 LEAD ELECTROCARDIOGRAM Observed: 09/23/2018 Status: F Source: [place] 2:56 PM [facility] REPOSITORY [facility] Cardiovascular Services [address] [place] [address] 12 Lead EKG 09/17/18 0955 MR#: [id number] Acct: [id number] Name: ELIA WESTON Rep #: [id number] : 1980 38 From: Maxi Johns MD Attending Dr: Wild Collins MD Status: DIS IN Ordering Dr: Wild Collins MD Date: 09/18/18 Location: [facility] Sex: M AA Admitted: 09/17/18 Test Reason : CP Blood Pressure : / mmHG Vent. Rate : 122 BPM Atrial Rate : 042 BPM P-R Int : 000 ms QRS Dur : 072 ms QT Int : 290 ms P-R-T Axes : 000 126 062 degrees QTc Int : 413 ms Poor data quality, interpretation may be adversely affected Accelerated Junctional rhythm with occasional Premature ventricular complexes Right axis deviation Low voltage QRS Cannot rule out Anteroseptal infarct , age undetermined Abnormal ECG When compared with ECG of 17-SEP-2018 09:55, MANUAL COMPARISON REQUIRED, DATA IS UNCONFIRMED Confirmed by MAXI JOHNS ([id number]), online content editor REYNA PAULINO ([id number]) on 09/23/2018 2:56:14 PM Referred By: Bree Fernandes Confirmed By:MAXI JOHNS 09/23/18 1456 Date Maxi Johns MD CC: Wild Collins MD; Avinash Banda MD; Bree Fernandes MD Signed HISTORY AND PHYSICAL Observed: 09/21/2018 Status: F Source: [facility] EXAM 7:11 AM [facility] REPOSITORY [facility] Medical Records Department [address] [place] [address] History and Physical 09/21/18 0704 MR#: [id number] Acct: [id number] Name: ELIA WESTON Rep #: [id number] : 1980 38 From: Bree Fernandes MD PCP: Avinash Banda MD Status: DIS IN Y Location: [place] [id number] History of Present Illness Date of Admission: 09/16/18 Chief Complaint: hypotension during dialysis Late entry H AND P note for admission on 09/16/18 Patient is a 38-year-old male with past medical history of ESRD on hemodialysis on Wednesdays, YEIMY, hyperparathyroidism due to renal insufficiency, anemia of chronic disease, hypertension and YEIMY. He was admitted to the hospital via the ED on 09/16/2018 with a complaint of hypotension during dialysis. Patient had been discharged just a few hours prior from [facility] after he was admitted and managed for influenza B infection and also chest pain which was thought to be due to clotted fistula in the left upper extremity. He was subsequently discharged to go for dialysis at his outpatient center. During dialysis, patient states he became lightheaded and dizzy and was noted that his blood pressure dropped to the 60s systolic. Dialysis was therefore aborted and he was rushed to the ED. His usual dry weight is 128 kg but he states his weight is at time he was leaving the dialysis center was 134 kg. Vitals in the ED showed BP of 81/36, and labs showed Cr of 10.30, and initial troponin was 0.238. He is being admitted to be managed for hypotension. Past Medical History Past Medical History (Chronic Problems): Chronic Problems (Last Reviewed 09/13/18 @ 05:00 by Anuel Copeland MD) Sleep apnea (Chronic) Lightheadedness (Chronic) Chronic pelvic pain in male (Chronic) Pelvic mass (Chronic) Hematuria (Chronic) Hearing loss (Chronic) in both ears Anemia of chronic disorder (Chronic) History of bacterial endocarditis (Chronic) Hypertension (Chronic) ESRD (end stage renal disease) (Chronic) Due to hypertension, On hemodialysis, TTS, followed by Dr. Goncalves Morbidly obese (Chronic) Sleep apnea (Chronic) 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 due to renal insufficiency (Chronic) Medical History: Medical History (Last Reviewed 09/13/18 @ 05:00 by Anuel Copeland MD) Sleep apnea (Chronic) G47.30 History of blood clots (Acute) Z86.718 fistula developed a clot and had to be surgically removed Hearing loss (Chronic) H91.90 in both ears Allergies No Known Allergies Allergy (Verified 09/13/18 00:38) Home Medications: Ambulatory Orders Medication Instructions Recorded cinacalcet 60 mg tablet 60 mg PO MOWEFR 10/10/17 Ferric Citrate [Auryxia] 3 tab PO TIDCM 05/15/18 Oxycodone [Oxyir] 5 - 10 mg PO Q6H PRN PRN 7 Days 09/16/18 Surgical History: herniorrhaphy, - Lives: Spouse/ Significant Other Smoking Status: Never smoker Tobacco Use: Non-smoker - *Family History Maternal History Items: No pertinent history Review of Systems Constitutional: Reports: Malaise, Weakness, Fatigue. Denies: Chills, Fever, Weight Change Eyes: Denies: Blurred vision HEENT: Denies: Head Aches, Sinus Congestion, Sinus Drainage Cardiovascular: Reports: Chest Pain. Denies: Heaviness, Light Headedness Respiratory: Denies: Cough, Shortness of breath at rest, Sputum production Gastrointestinal: Denies: Abdominal Pain, Nausea, Vomiting Genitourinary: Denies: Dysuria Musculoskeletal: Denies: Joint Pain, Joint Tenderness Skin: Denies: Rash, Wounds Neurological: Denies: Numbness, Tingling, Focal weakness Psychiatric: Denies: Anxiety, Depression, Homicidal Ideations, Suicidal Ideations Hematologic/ Lymphatic: Denies: Easy Bruising, Easy Bleeding VTE Information - Inpt Only VTE Present on Admission: No VTE Pharm Prophylaxis ordered?: Yes Assessment/Plan All Active Problems (Last Reviewed 09/13/18 @ 05:00 by Anuel Copeland MD) HCAP (healthcare-associated pneumonia) (Acute) Chest pain at rest (Acute) Hyperkalemia (Acute) Chronic kidney disease-mineral and bone disorder (Acute) Junctional tachycardia (Acute) Dyspnea (Acute) Clotted dialysis access (Acute) History of blood clots (Acute) Acute viral bronchitis (Acute) Chest pain, musculoskeletal (Acute) Chest pain (Acute) Vitals/I AND O's: Vital Signs Temp Pulse Resp BP Pulse Ox 97.8 F 78 15 98/64 95 09/16/18 17:06 09/16/18 17:06 09/16/18 17:06 09/16/18 17:06 09/16/18 18:06 Oxygen Delivery Method Room Air Weight: 282 lb Body Mass Index (BMI) 39.3 General: Alert, Oriented x3, Cooperative, No apparent distress HEENT: Atraumatic, PERRLA, EOMI, Normocephalic Oral: Moist Mucosa Neck: Supple, No JVD, Negative Carotid Bruits Lungs: - - mildly decreased breath sounds in lower lung page bilaterally Cardiovascular: Regular rate, Regular Rhythm, Normal S1, Normal S2, No murmurs Abdomen: Bowel Sounds Present, Soft, Non Tender, Non-Distended, No Hepato-splenomegaly Extremities: No clubbing, No cyanosis, No edema, Capillary Refill Less than 3 Seconds, - - nonfunctioning AV fistulae in UEs bilaterally. dialysis catheter in left groin Skin: No rashes, No breakdown Musculoskeletal: No Tenderness to Palpation of Joints or Extremities Lymphatic: No Cervical, Supraclavicular, or Inguinal Adenopathy Neurological: Cranial nerves II-XII grossly intact, Neuro grossly intact, Motor Exam 5/5 strength throughout Psych/Mental Status: Normal Affect, Appropriate, Alert and oriented to time, place, person, mood and affect Assessment and plan 38 y/o presenting with a complaitn of hypotension during dialysis session. 1. Hypotension due to prossible dialysis dysequilibrium * was discharged earlier today and went to dialysis center. Became hypotensive during dialysis, with BP going down to 60s systolic, according to patient * didnt get down to dry weight, with weight being 124kg on dmission; says dry weight is 128kg * BP came up to 80s and 90s sytolic after he received bolus of IVF * hydate with IVF * consult nephrology for dialysis. * 2. ESRD on hemodialysis: As under 1. Dialysis catheter is in left groin. 3. Chest pain: This is chronic. Was thought to be due to clotted fistula in left upper extremity during last admission. Will monitor. On oxycodone. 4. Clotted left upper extremity fistula: Scheduled for declotting to be done. Follow-up with [employer] architect and vascular surgeon on outpatient basis. 5. Hypertension: On carvedilol. 6. Influenza B infection: Was discharged today and given a prescription for oseltamivir. Will continue. 7. Bone mineral disorder due to ESRD: On cinacalcet 8. Anemia of chronic disease: Likely due to ESRD. On further considered. DVT prophylaxis: Heparin Code Visit OBSV E AND M: [id number] Initial observation care L3 09/21/18 0711 <Electronically signed by Bree Fernandes MD> Date Bree Fernandes MD Cosigner Signature: Date (if applicable) CC: Avinash Banda MD; Bree Fernandes MD Signed DISCHARGE SUMMARY Observed: 09/19/2018 Status: F Source: [facility] 11:51 AM [facility] REPOSITORY [facility] Medical Records Department [address] [place] [address] Discharge Summary 09/19/18 1122 MR#: [id number] Acct: [id number] Name: ELIA WESTON Rep #: [id number] : 1980 38 From: Lela Tsang [employer]-C PCP: Avinash Banda MD Status: ADM IN [id number] <Lela Tsang - Last Filed: 09/19/18 11:32> Discharge Date and Diagnosis Date of Admission: 09/13/18 Date of Discharge: 09/19/18 - Primary Discharge Diagnosis 1. Chest pain with elevated troponin/abnormal EKG suspected secondary to pericarditis and coronary vasospasm, ACS ruled out 2. Hypotension, secondary to volume depletion as a result of dialysis regimen 3. New onset atrial fibrillation 4. End-stage renal disease on hemodialysis 5. Hypertension 6. Recent influenza B 7. Anemia of chronic disease 8. Bone mineral disorder due to end-stage renal disease 9. Morbid obesity - Secondary Discharge Diagnosis Chronic Problems (Last Reviewed 09/13/18 @ 05:00 by Anuel Copeland MD) Sleep apnea (Chronic) Lightheadedness (Chronic) Chronic pelvic pain in male (Chronic) Pelvic mass (Chronic) Hematuria (Chronic) Hearing loss (Chronic) in both ears Anemia of chronic disorder (Chronic) History of bacterial endocarditis (Chronic) Hypertension (Chronic) ESRD (end stage renal disease) (Chronic) Due to hypertension, On hemodialysis, TTS, followed by Dr. Goncalves Morbidly obese (Chronic) Sleep apnea (Chronic) 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 due to renal insufficiency (Chronic) Hospital Course and Treatment Imaging Results: Diagnostic Data Chest X-Ray 09/16/18 17:45 IMPRESSION: Hazy right middle lobe infiltrate, appearing similar to the previous study. Moderately severe thoracic dextroscoliosis. Electronically Signed: Salvador Carrero MD at 18:25 EST , Service support , Chest CTA 09/17/18 10:25 IMPRESSION: Limited study secondary to large body habitus and suboptimal contrast bolus timing. The study is essentially nondiagnostic for evaluation of the pulmonary arteries. There are extensive dilated venous collaterals throughout the superficial soft tissues. There is a 1.4 x 1.7 cm pleural-based nodule in the posteromedial left lung base with associated adjacent pleural thickening, appearing similar to the previous study. Electronically Signed: Salvador Carrero MD at 19:18 EST , Service support , Dr. Johns- Cardiology Dr. Goncalves- Nephrology Operations: None Procedures: Cardiac catheterization, Dialysis Summary of Care Provided: The patient is a 38 year old M admitted 09/16/2018 due to hypotension during dialysis. 1. Chest pain with elevated troponin/abnormal EKG-chest pain suspected secondary to pericarditis and coronary vasospasm. Cardiology consulted during admission. Patient underwent cardiac catheterization which showed normal coronary arteries. LCx spasm which corrected with IC NTG. Moderate LVH. CT of chest nondiagnostic for evaluation of pulmonary arteries, limited study due to large body habitus. 1.4 x 1.7 cm pleural-based nodule left lung base, similar to prior study. Patient started on Cardizem per cardiology for coronary vasospasm and tachycardia. Continue aspirin. Patient initiated on ibuprofen 600 mg p.o. every 6 hours for pericarditis. Will continue cardizem, aspirin at discharge. Continue ibuprofen X2 weeks. Follow up with Dr. Johns in 1-2 Weeks. Follow up with PCP in 1 week. 2. Hypotension-Improved. Suspect secondary to volume depletion as a result of dialysis regimen. 3. New onset atrial fibrillation- Continue Cardizem. Oral anticoagulation not recommended at this time. Rate controlled. Follow-up with cardiology in 1-2 weeks. 4. End-stage renal disease on hemodialysis-nephrology following. Continue scheduled dialysis Friday, Friday, Friday. Patient has nonfunctioning bilateral upper extremity fistulas. Left groin catheter. Follow-up with nephrology as scheduled. 5. Hypertension-carvedilol discontinued. Started on Cardizem as noted above. 6. Recent influenza B-completed Tamiflu course. 7. Anemia of chronic disease- stable. 8. Bone mineral disorder due to end-stage renal disease-continue cinacalcet. 9. Morbid obesity-BMI 42.9 General: Alert, Oriented x3, Cooperative HEENT: Atraumatic, PERRLA, EOMI, Normocephalic Neck: Supple, No JVD, Negative Carotid Bruits Lungs: Clear to auscultation, Normal air movement Cardiovascular: Normal rate, normal rhythm, no murmur Abdomen: Bowel Sounds Present, Soft, Non Tender, Non-Distended, Obese Extremities: - - No clubbing, No cyanosis, No edema, Capillary Refill Less than 3 Seconds, Nonfunctioning AV fistula bilateral upper extremities. Dialysis catheter left groin. Skin: No rashes, No breakdown Musculoskeletal: No Tenderness to Palpation of Joints or Extremities Neurological: Cranial nerves II-XII grossly intact, Neuro grossly intact Psych/Mental Status: Normal Affect, Appropriate Patient seen and examined prior to discharge. Physical assessment as noted above. Patient is stable for discharge with follow up recommendations as noted above. This patient was seen by YVONNE Randolph under the supervision of Dr. Collins. - Physical Exam Vital Signs Temp Pulse Resp BP Pulse Ox 97.3 F L 96 15 112/57 L 99 09/19/18 06:32 09/19/18 07:12 09/19/18 06:32 09/19/18 06:32 09/19/18 06:32 Oxygen Flow Rate (L/min) 2 Oxygen Delivery Method Room Air Weight: 304 lb 10.861 oz Body Mass Index (BMI) 42.6 Intake and Output for Last 24 Hours Intake Total 4639 / 4639 1075 / 1075 400 / 400 Output Total 1300 / 1300 Balance 4639 / 4639 -225 / -225 400 / 400 Laboratory Tests Past 24 Hrs Sodium 137 Potassium 4.7 Chloride 100 Carbon Dioxide 25.0 BUN 49 H Creatinine 10.60 H* Discharge Diet: Renal Diet Discharge Activity: Return to Normal Activity Call your doctor if you observe: Shortness of breath, Dizziness, Fainting spells, Chest pain Home Medications: Medications to take at Discharge cinacalcet 60 mg tablet 60 mg PO MOWEFR 10/10/17 Ferric Citrate [Auryxia] 3 tab PO TIDCM 05/15/18 Oxycodone [Oxyir] 5 - 10 mg PO Q6H PRN PRN 7 Days #40 tab 09/16/18 Aspirin E.C. [Ecotrin] 81 mg PO DAILY@0800 #30 tablet 09/19/18 Diltiazem CD [Cardizem CD] 120 mg PO DAILY #30 capsule 09/19/18 Ibuprofen [Motrin] 600 mg PO Q8 #42 tablet 09/19/18 Following Prescrptions Were Given to Patient: Aspirin E.C. [Ecotrin] 81 mg PO DAILY@0800 #30 tablet Diltiazem CD [Cardizem CD] 120 mg PO DAILY #30 capsule Ibuprofen [Motrin] 600 mg PO Q8 #42 tablet Primary Care Physician: Avinash Banda MD [Primary Care Provider] - Please follow up with your Primary Care Physician in: 1 Week Please Follow Up With: Maxi Johns MD When: 1-2 Weeks Please Follow Up With: Dialysis/Nephrology When: As scheduled Disposition: Home Minutes spent on discharge:: 35 Patient Condition:: Stable Medical Necessity - Tobacco Use Smoking Status: Never smoker Tobacco Use: Non-smoker Meaningful Use Info Meaningful Use Diagnoses (Choose all that apply): None applicable <Wild Collins - Last Filed: 09/19/18 11:51> Discharge Date and Diagnosis - Secondary Discharge Diagnosis Chronic Problems (Last Reviewed 09/13/18 @ 05:00 by Anuel Copeland MD) Sleep apnea (Chronic) Lightheadedness (Chronic) Chronic pelvic pain in male (Chronic) Pelvic mass (Chronic) Hematuria (Chronic) Hearing loss (Chronic) in both ears Anemia of chronic disorder (Chronic) History of bacterial endocarditis (Chronic) Hypertension (Chronic) ESRD (end stage renal disease) (Chronic) Due to hypertension, On hemodialysis, TTS, followed by Dr. Goncalves Morbidly obese (Chronic) Sleep apnea (Chronic) 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 due to renal insufficiency (Chronic) Hospital Course and Treatment Summary of Care Provided: This patient was seen in conjunction with YVONNE Randolph . I have independently interviewed and examined the patient and reviewed pertinent historical, laboratory, and other data. Please refer to YVONNE Randolph note for details of this patient's presentation, findings, and recommendations. I have reviewed YVONNE Randolph note and concur with documented findings. In brief, patient is a 38-year-old gentleman with history of end-stage renal disease on hemodialysis who presents with chest pain Assessment: 1. Atypical chest pain: Suspected to be secondary to pericarditis 2. Hypotension attributed to patient's dialysis; resolved 3. New onset paroxysmal A. fib with controlled rate 4. End-stage renal disease on hemodialysis 5. Recent admission for influenza B 6. Essential hypertension 7. Morbid obesity with BMI of 42.9 8. DVT prophylaxis on heparin Hospital course: As elicited abide by Lela Denis - Physical Exam Vital Signs Temp Pulse Resp BP Pulse Ox 97.3 F L 96 15 112/57 L 99 09/19/18 06:32 09/19/18 07:12 09/19/18 06:32 09/19/18 06:32 09/19/18 06:32 Oxygen Flow Rate (L/min) 2 Oxygen Delivery Method Room Air Weight: 138.2 kg Body Mass Index (BMI) 42.6 Intake and Output for Last 24 Hours Intake Total 4639 / 4639 1075 / 1075 400 / 400 Output Total 1300 / 1300 Balance 4639 / 4639 -225 / -225 400 / 400 Laboratory Tests Past 24 Hrs Sodium 137 Potassium 4.7 Chloride 100 Carbon Dioxide 25.0 BUN 49 H Creatinine 10.60 H* Code Visit Inpatient E AND M: [id number] Disch Hosp 09/19/18 1133 <Electronically signed by Lela RUSSELL> Date Lela RUSSELL 09/19/18 1151<Electronically signed by Wild Collins MD> Cosigner Signature (if applicable): Date Wild Collins MD CC: [employer]-C Lela Tsang; Wild Collins MD; Avinash Banda MD Signed DISCHARGE INSTRUCTION Observed: 09/19/2018 Status: F Source: NAJMA 11:22 AM [facility] REPOSITORY [facility] Medical Records Department [address] [place] [address] Instructions for Home/Discharge Instructions 09/19/18 1120 MR#: [id number] Acct: [id number] Name: ELIA WESTON Rep #: [id number] : 1980 38 From: Lela Tsang [employer]-C PCP: Avinash Banda MD Status: ADM IN You will use the following diet at home:: Renal (restricted protein/sodium) Discharge Activity: Return to Normal Activity Call your doctor if you observe: Shortness of breath, Dizziness, Fainting spells, Chest pain Allergies/Adverse Reactions: Allergies No Known Allergies Allergy (Verified 09/13/18 00:38) Medications to take at Discharge cinacalcet 60 mg tablet 60 mg PO MOWEFR 10/10/17 Ferric Citrate [Auryxia] 3 tab PO TIDCM 05/15/18 Oxycodone [Oxyir] 5 - 10 mg PO Q6H PRN PRN 7 Days #40 tab 09/16/18 Aspirin E.C. [Ecotrin] 81 mg PO DAILY@0800 #30 tablet 09/19/18 Diltiazem CD [Cardizem CD] 120 mg PO DAILY #30 capsule 09/19/18 Ibuprofen [Motrin] 600 mg PO Q8 #42 tablet 09/19/18 The following prescriptions were given: Aspirin E.C. [Ecotrin] 81 mg PO DAILY@0800 #30 tablet Diltiazem CD [Cardizem CD] 120 mg PO DAILY #30 capsule Ibuprofen [Motrin] 600 mg PO Q8 #42 tablet Primary Care Physician: Avinash Banda MD [Primary Care Provider] - Please follow up with your Primary Care Physician in: 1 Week Test Results: Test results from this visit will be discussed in further detail at your follow-up appointment, if applicable. Please Follow Up With: Maxi Johns MD When: 1-2 Weeks Please Follow Up With: Dialysis/Nephrology When: As scheduled Proposed Discharge Date: 09/19/18 09/19/18 1122 <Electronically signed by Lela RUSSELL> Date Lela RUSSELL CC: Avinash Banda MD; Keyla Melendez M.D. Signed RENAL PROFILE Collected: 09/19/2018 Status: F Source: CRUMP 5:53 AM [facility] REPOSITORY TYPE CODE TESTS RESULT OUT OF RANGE REFERENCE UNITS LAB L501.0100 74-106 mg/dL Normal GLU 92 Result Comment: Please note revised GLUCOSE reference range effective 2017. LAB L501.1000 7-18 mg/dL High BUN 49 LAB L501.1100 0.70-1.30 mg/dL High alert CREAT,SERUM 10.60 Result Comment: Critical Result(s) Called at: 06:54:50 09/19/2018 by: Aakash Ceballos to Ofe RAMOS The validity of the calculated GFR AND GFRAA in patients over 70 years has not been determined. Clinical correlation is essential. LAB L501.1110 >60 mL/min Low EST GFR 6 Result Comment: Non- GFR Calc LAB L501.1115 >60 mL/min Low EST GFR - AA 7 Result Comment: GFR Calc LAB L501.1255 ml/min Normal Estimated CRCL 9.95 LAB L501.1300 10-20 RATIO Low BUN/CRE 4.6 LAB L501.1800 3.2-5.0 g/dL Low ALB 2.6 LAB L501.2200 8.5-10. mg/dL Low 1 CA 7.9 LAB L501.2300 2.5-4.9 mg/dL High PHOS 7.8 LAB L501.5300 136-145 mmol/L Normal NA 137 LAB L501.5600 3.5-5.1 mmol/L Normal K 4.7 LAB L501.5900 98-107 mmol/L Normal CL 100 LAB L501.6100 21.0-32 mmol/L Normal .0 CO2 25.0 Performed By: #### L500.3600 #### [facility] [address] [place], [address] CONSULTATION Observed: 09/18/2018 Status: F Source: CRUMP 4:57 PM [facility] REPOSITORY [facility] Medical Records Department [address] [place] [address] Consultation 09/18/18 1649 MR#: [id number] Acct: [id number] Name: ELIA WESTON Rep #: [id number] : 1980 38 From: Leelee Cook MD PCP: Avinash Banda MD Status: ADM IN Y Location: [place] [address] Consultation - Renal 09/18/18 PCP/ Referring MD: Requesting physician: Hospital Medicine Service Primary care physician: Avinash Banda MD Reason for Consultation:: ESRD - History of Present Illness History of Present Illness: The patient is a 38 year old M who is admitted on 09/16/18 because, during dialysis, patient states he became lightheaded and dizzy and was noted that his blood pressure dropped to the 60s systolic. The pt was just discharged on the same day. His last admit was treatment for influenza B infection. The pt underwent LHC for chest pain yesterday which did not reveal coronary lesion. He denies SOB, nausea or edema. Chest pain has subsided. Pt normally dilayzes at [facility] on MWF schedule. He was dialyzed earlier today. - Allergies Allergies: Allergies No Known Allergies Allergy (Verified 09/13/18 00:38) - Current Medications Current Medications: Current Medications Acetaminophen (Tylenol) 650 mg PO Q6H PRN PRN PRN Reason: PAIN Last Admin: 09/18/18 08:20 Dose: 650 mg Aspirin (Ecotrin) 81 mg PO DAILY@0800 [facility] Last Admin: 09/18/18 08:20 Dose: 81 mg Cinacalcet (Sensipar) 60 mg PO MOWEFR [facility] Last Admin: 09/18/18 01:16 Dose: 60 mg Diltiazem HCl (Cardizem Cd) 120 mg PO DAILY [facility] Last Admin: 09/17/18 19:13 Dose: 120 mg Heparin Sodium (Beef Lung) (Heparin 500 Unit/5 Ml (100/Ml)) 500 unit IV UD PRN PRN Reason: HEPARIN FLUSH Heparin Sodium (Porcine) (Heparin Na) 5,000 unit SC Q8 [facility] Last Admin: 09/18/18 16:28 Dose: Not Given Heparin Sodium (Porcine) () 2,500 units IV UD PRN PRN Reason: HEPARIN FLUSH Ibuprofen (Motrin) 600 mg PO Q6 [facility] Last Admin: 09/18/18 13:12 Dose: 600 mg Labetalol HCl (Trandate) 5 mg IV X1 PRN PRN Reason: SBP > 160 prior to sheath pull Stop: 09/19/18 11:31 Magnesium Hydroxide (Milk Of Magnesia) 30 ml PO DAILY PRN PRN PRN Reason: Constipation Nutritional Formula (Lactose Free) (Ensure Enlive) 120 ml PO 4X/DAY [facility] Last Admin: 09/18/18 13:14 Dose: 120 ml Oseltamivir Phosphate (Tamiflu) 30 mg PO X1 ONE Stop: 09/18/18 15:01 Oxycodone HCl (Oxyir) 5 - 10 mg PO Q6H PRN PRN PRN Reason: pain Last Admin: 09/18/18 01:16 Dose: 10 mg Sevelamer Carbonate (Renvela) 2,400 mg PO TIDCM [facility] Last Admin: 09/18/18 13:13 Dose: 2,400 mg Sodium Chloride () 5 - 15 ml IV UD PRN PRN Reason: SALINE FLUSH Sodium Chloride () 10 ml IV UD PRN PRN Reason: Dialysis Catheter Flush - Past Medical History Past Medical History (Chronic Problems): Chronic Problems (Last Reviewed 09/13/18 @ 05:00 by Anuel Copeland MD) Sleep apnea (Chronic) Lightheadedness (Chronic) Chronic pelvic pain in male (Chronic) Pelvic mass (Chronic) Hematuria (Chronic) Hearing loss (Chronic) in both ears Anemia of chronic disorder (Chronic) History of bacterial endocarditis (Chronic) Hypertension (Chronic) ESRD (end stage renal disease) (Chronic) Due to hypertension, On hemodialysis, TTS, followed by Dr. Goncalves Morbidly obese (Chronic) Sleep apnea (Chronic) 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 due to renal insufficiency (Chronic) - Past Surgical History Surgical History: herniorrhaphy, - - Social History Smoking Status: Never smoker - Family History Maternal History Items: No pertinent history Review of Systems Constitutional: Denies: Chills, Fever, Weight Change Eyes: Denies: Blurred vision HEENT: Denies: Head Aches, Sinus Congestion, Sinus Drainage Cardiovascular: Reports: Chest Pain. Denies: Edema, Orthopnea, Paroxysmal Noc. Dyspnea Respiratory: Reports: Cough. Denies: Shortness of Breath, Sputum production Gastrointestinal: Denies: Abdominal Pain, Nausea, Vomiting Genitourinary: Denies: Dysuria Musculoskeletal: Denies: Joint Pain, Joint Tenderness Skin: Denies: Rash, Wounds Neurological: Denies: Numbness, Tingling, Focal weakness Psychiatric: Denies: Anxiety, Depression, Homicidal Ideations, Suicidal Ideations - Physical Exam General: Alert, Oriented x3 HEENT: Atraumatic, PERRLA, EOMI Oral: Moist Mucosa Neck: Supple, No JVD Lungs: Clear to auscultation Cardiovascular: Normal S1, Normal S2, No murmurs Abdomen: Bowel Sounds Present, Soft, Non Tender, Obese Extremities: No clubbing, No cyanosis, No edema Skin: No rashes Musculoskeletal: No Tenderness to Palpation of Joints or Extremities Neurological: Neuro grossly intact Vital Signs Temp Pulse Resp BP Pulse Ox 97.6 F L 98 18 100/61 100 09/18/18 16:42 09/18/18 16:42 09/18/18 16:42 09/18/18 16:42 09/18/18 14:30 Oxygen Flow Rate (L/min) 2 Oxygen Delivery Method Room Air Weight: 137.7 kg Body Mass Index (BMI) 42.6 Intake and Output for Last 24 Hours Intake Total 286.7 / 286.7 4639 / 4639 835 / 835 Output Total 1300 / 1300 Balance 286.7 / 286.7 4639 / 4639 -465 / -465 Assessment/Plan All Active Problems (Last Reviewed 09/13/18 @ 05:00 by Anuel Copeland MD) HCAP (healthcare-associated pneumonia) (Acute) Chest pain at rest (Acute) Hyperkalemia (Acute) Chronic kidney disease-mineral and bone disorder (Acute) Junctional tachycardia (Acute) Dyspnea (Acute) Clotted dialysis access (Acute) History of blood clots (Acute) Acute viral bronchitis (Acute) Chest pain, musculoskeletal (Acute) Chest pain (Acute) 1. ESRD. HD MWF at [facility] as outpt. Will keep on MWF dialysis while admitted. He was dialyzed earlier today. Tolerated well. 2. Hyperkalemia. Dialyzed earlier today with 2K. Recheck K in am. 3. Anemia. Continue ANABELLA with dialysis. 4. HTN. BP is controlled. Continue current BP medications. 5. Chest pain. No CAD on LHC. Medical treatment for possible coronary vasospasm as per primary service. 09/18/18 1657 <Electronically signed by Leelee Cook MD> Date Leelee Cook MD Cosigner Signature (if applicable): Date CC: Avinash Banda MD; Keyla Melendez M.D.; Bree Fernandes MD Signed 12 LEAD ELECTROCARDIOGRAM Observed: 09/18/2018 Status: F Source: CRUMP 2:12 PM [facility] REPOSITORY [facility] Cardiovascular Services [address] [place] [address] 12 Lead EKG 09/16/18 0923 MR#: [id number] Acct: [id number] Name: ELIA WESTON Rep #: [id number] : 1980 38 From: Nnamdi Moreno MD Attending Dr: Yanely Yoder Status: DIS IN Ordering Dr: Danyelle Yoder DO Date: 09/16/18 Location: [facility] Sex: M AA Admitted: 09/14/18 Test Reason : RYTHM CHANGE Blood Pressure : / mmHG Vent. Rate : 099 BPM Atrial Rate : 099 BPM P-R Int : 368 ms QRS Dur : 072 ms QT Int : 322 ms P-R-T Axes : 062 094 060 degrees QTc Int : 413 ms Sinus rhythm with 1st degree A-V block Rightward axis Pulmonary disease pattern Septal infarct , age undetermined Abnormal ECG When compared with ECG of 15-SEP-2018 21:02, MANUAL COMPARISON REQUIRED, DATA IS UNCONFIRMED Confirmed by JOSH STAHL, NNAMDI ([id number]), online content editor REYNA PAULINO ([id number]) on 09/18/2018 2:12:15 PM Referred By: WESTON Confirmed By:NNAMDI MORENO MD 09/18/18 1412 Date Nnamdi Moreno MD CC: Yanely Yoder; Avinash Banda MD Signed 12 LEAD ELECTROCARDIOGRAM Observed: 09/18/2018 Status: F Source: NAJMA 2:07 PM [facility] REPOSITORY [facility] Cardiovascular Services [address] [place] [address] 12 Lead EKG 09/15/182101 MR#: [id number] Acct: [id number] Name: ELIA WESTON Rep #: [id number] : 1980 38 From: Nnamdi Moreno MD Attending Dr: Yanely Yoder Status: DIS IN Ordering Dr: Danyelle Yoder DO Date: 09/15/18 Location: [facility] Sex: M AA Admitted: 09/14/18 Test Reason : CHEST PAIN Blood Pressure : / mmHG Vent. Rate : 091 BPM Atrial Rate : 091 BPM P-R Int : 304 ms QRS Dur : 066 ms QT Int : 344 ms P-R-T Axes : 071 111 060 degrees QTc Int : 423 ms Sinus rhythm with 1st degree A-V block Right axis deviation Septal infarct , age undetermined Abnormal ECG When compared with ECG of 15-SEP-2018 14:06, MANUAL COMPARISON REQUIRED, DATA IS UNCONFIRMED Confirmed by NNAMDI MORENO MD ([id number]), online content editor REYNA PAULINO ([id number]) on 09/18/2018 2:06:41 PM Referred By: WESTON Confirmed By:NNAMDI MORENO MD 09/18/18 1406 Date Nnamdi Moreno MD CC: Yanely Yoder; Avinash Banda MD Signed 12 LEAD ELECTROCARDIOGRAM Observed: 09/18/2018 Status: F Source: NAJMA 1:57 PM [facility] REPOSITORY [facility] Cardiovascular Services [address] [place] [address] 12 Lead EKG 09/16/18 1801 MR#: [id number] Acct: [id number] Name: ELIA WESTON Rep #: [id number] : 1980 38 From: Nnamdi Moreno MD Attending Dr: Wild Collins MD Status: ADM IN Ordering Dr: James Landers MD Date: 09/16/18 Location: [facility] Sex: M AA Admitted: 09/17/18 Test Reason : Blood Pressure : / mmHG Vent. Rate : 100 BPM Atrial Rate : 100 BPM P-R Int : 288 ms QRS Dur : 070 ms QT Int : 316 ms P-R-T Axes : 069 039 044 degrees QTc Int : 407 ms Sinus rhythm with 1st degree A-V block Low voltage QRS Cannot rule out Anteroseptal infarct , age undetermined Abnormal ECG Confirmed by JOSH STAHL, NNAMDI ([id number]), online content editor REYNA PAULINO ([id number]) on 09/18/2018 1:56:34 PM Referred By: Bree Fernandes Confirmed By:NNAMDI MORENO MD 09/18/18 1356 Date Nnamdi Moreno MD CC: MD Alise Landers; Wild Collins MD; Avinash Banda MD; Bree Fernandes MD Signed CTA CHEST W/WO Observed: 09/17/2018 Status: F Source: NAJMA CONTRAST 10:26 AM [facility] REPOSITORY [facility] Imaging Services [address] [place] [address] CTA Chest W/WO Contrast MR#: [id number] Acct: [id number] Name: ELIA WESTON Rep #: [id number] : 1980 M 38 From: Salvador Carrero MD PCP: Avinash Banda MD Status: ADM IN Study: CTA Chest W/WO Contrast Date of Exam: 09/17/18 Exam# [id number] Ordering Dr: Lela Tsang [employer]-Adeel STUDY: CTA CHEST REASON FOR EXAM: Male, 38 years old. Chest pain RADIATION DOSAGE (If Supplied By Facility): CTDIvol = ( 118.54 ) mGy, DLP = ( 1080.85 ) mGycm TECHNIQUE: The examination was performed with the intravenous administration of 100 ml of Isovue 370 contrast material. Post-processing of the angiographic images was performed, with multiplanar reformation and 3D reconstruction. Individualized dose optimization techniques were used for this CT. COMPARISON: Prior study of 08/11/2018 FINDINGS: The study is technically limited due to large body habitus. Normal enhancement of the main pulmonary artery and right and left pulmonary arteries. There is limited enhancement of the bilateral peripheral pulmonary arteries. There is no demonstrated pulmonary embolism. Normal thoracic aorta and visualized great vessels. There is no demonstrated aortic dissection. Cardiac valvular calcifications are present. The heart size is within normal limits. There is no pericardial effusion. Normal mediastinum. Normal hilar regions. Normal visualized trachea and bronchi. The lungs are well expanded. There is a 1.4 x 1.7 cm pleural-based nodule of the posteromedial left lung base, similar to the previous study. There is mild associated adjacent pleural thickening. There are extensive dilated venous collaterals throughout the superficial soft tissues. There is a thoracolumbar dextroscoliosis. Normal visualized upper abdomen. CT/CTA Chest W/WO Contrast IMPRESSION: Limited study secondary to large body habitus and suboptimal contrast bolus timing. The study is essentially nondiagnostic for evaluation of the pulmonary arteries. There are extensive dilated venous collaterals throughout the superficial soft tissues. There is a 1.4 x 1.7 cm pleural-based nodule in the posteromedial left lung base with associated adjacent pleural thickening, appearing similar to the previous study. Electronically Signed: Salvador Carrero MD at 19:18 EST , Service support , CC: YVONNE Tsang; Avinash Banda MD Brick Chimney Supervisor: Signed TROPONIN-I Collected: 09/17/2018 Status: F Source: [place]UMP 10:18 AM [facility] REPOSITORY Order Comment: 'TROP' Serial specimen #1, #2 or #3: 2 TYPE CODE TESTS RESULT OUT OF RANGE REFERENCE UNITS LAB L501.4010 <0.045 ng/mL High 0.103 TROPONIN-I Result Comment: TROPONIN-I EXPECTED VALUES <0.045 Negative 0.045 - 0.590 Consistent with Cardiac Damage > OR = 0.600 Critical Value Not every elevated troponin is indicative of LA. These values should be used with clinical judgement in examining the patient's clinical picture for diagnosis. To establish a diagnosis of LA versus myocardial injury, there must be a demonstrated rise and/or fall in the troponin values, in addition to ischemic symptoms, EKG changes, new regional wall motion abnormality, and/or angiographical evidence. PLEASE NOTE: REFERENCE RANGES EDITED 18 Performed By: #### L501.4010 #### [facility] [place], [address] CBC W/DIFF, AUTOMATED Collected: 09/17/2018 Status: F Source: [place]UMP 6:59 AM [facility] REPOSITORY TYPE CODE TESTS RESULT OUT OF RANGE REFERENCE UNITS LAB L100.1000 4.4-11.0 K/mm3 Normal WBC 6.6 LAB L100.1200 4.6-6.2 M/mm3 Low RBC 4.05 LAB L100.1300 13.0-16.5 g/dl Low HGB 11.2 LAB L100.1400 40-54 % Low HCT 36.5 LAB L100.1500 80-94 fL Normal MCV 90.1 LAB L100.1600 27.0-32.0 pg Normal MCH 27.7 LAB L100.1700 32-36 g/gl Low MCHC 30.7 LAB L100.1810 11.6-14.6 % High RDW CV 16.6 LAB L100.1820 35.1-43.9 fl High RDW SD 54.3 LAB L100.1900 150-450 K/mm3 Normal PLT 160 LAB L100.2000 6.2-12.0 fl Normal MPV 10.9 LAB L100.2100 47-70 % Normal NEUT% 57.0 LAB L100.2200 19-41 % Low LY% 18.9 LAB L100.2300 0-10 % High MONO% 21.8 LAB L100.2400 0-5 % Normal EO% 1.8 LAB L100.2500 0-1 % Normal BASO% 0.2 LAB L100.2550 0.0-0.9 % Normal IM GRAN % 0.300 Result Comment: IG% - Immature Granulocytes (promyelocytes, myelocytes and metamyelocytes) > 1% indicates that a LEFT SHIFT is Present. LAB L100.2620 2.0-7.7 X10 3/uL Normal Absolute Neut 3.8 LAB L100.2720 0.83-4.51 X10 3/ul Normal Absolute Lymph 1.25 Performed By: #### L100.0100 #### [facility] [address] [place], [address] RENAL PROFILE Collected: 09/17/2018 Status: F Source: CRUMP 6:59 AM [facility] REPOSITORY TYPE CODE TESTS RESULT OUT OF RANGE REFERENCE UNITS LAB L501.0100 74-106 mg/dL Normal GLU 81 Result Comment: Please note revised GLUCOSE reference range effective 2017. LAB L501.1000 7-18 mg/dL High BUN 56 LAB L501.1100 0.70-1.30 mg/dL High alert CREAT,SERUM 11.70 Result Comment: Critical Result(s) Called at: 08:13:11 09/17/2018 by: Luisa Burgess The validity of the calculated GFR AND GFRAA in patients over 70 years has not been determined. Clinical correlation is essential. LAB L501.1110 >60 mL/min Low EST GFR 5 Result Comment: Non- GFR Calc LAB L501.1115 >60 mL/min Low EST GFR - AA 6 Result Comment: GFR Calc LAB L501.1255 ml/min Normal Estimated CRCL 9.01 LAB L501.1300 10-20 RATIO Low BUN/CRE 4.8 LAB L501.1800 3.2-5.0 g/dL Low ALB 2.6 LAB L501.2200 8.5-10. mg/dL Low 1 CA 8.2 LAB L501.2300 2.5-4.9 mg/dL High PHOS 8.5 LAB L501.5300 136-145 mmol/L Normal NA 138 LAB L501.5600 3.5-5.1 mmol/L High K 5.5 LAB L501.5900 98-107 mmol/L Normal CL 100 LAB L501.6100 21.0-32 mmol/L Normal .0 CO2 25.0 Performed By: #### L500.3600 #### [facility] [address] [place], [address] MAGNESIUM Collected: 09/17/2018 Status: F Source: CRUMP 6:59 AM [facility] REPOSITORY TYPE CODE TESTS RESULT OUT OF RANGE REFERENCE UNITS LAB L501.5200 1.6-2.6 mg/dL Normal MG 2.3 Performed By: #### L501.5200 #### [facility] [address] [place], [address] TROPONIN-I Collected: 09/17/2018 Status: F Source: CRUMP 6:59 AM [facility] REPOSITORY Order Comment: 'TROP' Serial specimen #1, #2 or #3: 1 TYPE CODE TESTS RESULT OUT OF RANGE REFERENCE UNITS LAB L501.4010 <0.045 ng/mL High 0.157 TROPONIN-I Result Comment: TROPONIN-I EXPECTED VALUES <0.045 Negative 0.045 - 0.590 Consistent with Cardiac Damage > OR = 0.600 Critical Value Not every elevated troponin is indicative of LA. These values should be used with clinical judgement in examining the patient's clinical picture for diagnosis. To establish a diagnosis of LA versus myocardial injury, there must be a demonstrated rise and/or fall in the troponin values, in addition to ischemic symptoms, EKG changes, new regional wall motion abnormality, and/or angiographical evidence. PLEASE NOTE: REFERENCE RANGES EDITED 18 Performed By: #### L501.4010 #### [facility] [address] [place], [address] ERYTHROCYTE SED RATE Collected: 09/17/2018 Status: F Source: CRUMP 6:59 AM [facility] REPOSITORY TYPE CODE TESTS RESULT OUT OF RANGE REFERENCE UNITS LAB L102.0000 0-15 mm/hr High SED RATE 81 Performed By: #### L101.9900 #### [facility] [address] [place], [address] EMERGENCY DEPARTMENT Observed: 09/16/2018 Status: F Source: CRUMP SUMMARY 11:37 PM [facility] REPOSITORY [facility] Medical Records Department [address] [place] [address] Emergency Department Summary 09/16/18 1755 MR#: [id number] Acct: [id number] Name: ELIA WESTON Rep #: [id number] : 1980 38 From: James Landers MD PCP: Avinash Banda MD Status: ADM SILAS - ER Visit Summary Date of Service: 09/16/18 Chief Complaint: [] Generalized weakness low blood pressure recent pneumonia end-stage renal disease History of Present Illness: The patient is a 29 F [] hypertension end-stage renal disease dialysis schedule Friday indicates he was admitted to the hospital recently and discharged this afternoon after being admitted for chest pain weakness he was indicates he was told he may have the flu he indicates he was discharged this afternoon a few hours ago even though he claims he was not feeling well when he was discharged, he went directly to the dialysis center as his last dialysis was Friday and he was due for dialysis today on arrival there he believes his blood pressure was low he was dialyzed for about 3 hours, he indicates his dry weight is around 128 and he believes his current weight is 132-134 kg, he believes he was given a fluid bolus when his blood pressure fell to 70, he presents the emergency department the blood pressure of about 90 over palp complaining of just generalized fatigue no chest pain no fever no cough Physical Examination: [] 98/64 afebrile pulse ox 99 on room air General, no distress resting comfortably HEENT is generally unremarkable The neck is supple no adenopathy Cardiovascular, regular rate and rhythm Lungs, clear bilateral Abdomen, soft nontender Extremities, no clubbing cyanosis or edema Neurologic, awake alert answering questions appropriately moving all 4 extremities Given his complaints his low blood pressure here he will receive IV fluid screening labs we will asked the hospitalist see him for further management Test Results: [] Emergency Department Course and Treatment: [] Screening labs are are generally unremarkable for him except for his troponin which is elevated to about 0.3 this is elevated from his baseline, the chest x-ray shows per radiology persistence of the right- sided infiltrate, the patient remains hemodynamically stable here given all the above we will ask hospice and further management admission Treatment Plan: [] Disposition: [] Admit Impression: [] Hypotension, generalized fatigue, abnormal troponin, right sided pneumonia infiltrate recent admission for the above, history of hypertension end-stage renal disease This note was generated with Social Intelligenceation software. It may contain incorrect words, spelling, and punctuation that were not noted in review of the chart prior to signing ED Disposition - Plan for ED Patient: Chief Complaint: Shortness of Breath Referrals: Avinash Banda MD [Primary Care Provider] - What to do if you have Problems For any increased pain, shortness of breath, bleeding, nausea or vomiting, chest pain, or any unexpected problems, contact your Primary Care Provider. Call [facility] ([phone]) or report to the closest Emergency Room. Call 911 if necessary. 09/16/18 2337 <Electronically signed by James Landers MD> Date James Landers MD Cosigner Signature (If Indicated): Date CC: Avinash Banda MD DISCHARGE SUMMARY Observed: 09/16/2018 Status: F Source: NAJMA 7:47 PM [facility] REPOSITORY [facility] Medical Records Department [address] [place] [address] Discharge Summary 09/16/18 0852 MR#: [id number] Acct: [id number] Name: ELIA WESTON Rep #: [id number] : 1980 38 From: Danyelle Yoder DO PCP: Avinash Banda MD Status: DIS IN Y [facility] Discharge Date and Diagnosis Date of Admission: 09/13/18 Date of Discharge: 09/16/18 - Primary Discharge Diagnosis Active and Suspected Problems (Last Reviewed 09/13/18 @ 05:00 by Anuel Copeland MD) viral PNA due to Influenza B Chest pain at rest (Acute) - suspect due to vasodilation of the chest wall related to a clotted AV fistula Hyperkalemia (Acute) - Secondary Discharge Diagnosis Chronic Problems (Last Reviewed 09/13/18 @ 05:00 by Anuel Copeland MD) Sleep apnea (Chronic) Chronic pelvic pain in male (Chronic) Pelvic mass (Chronic) Hematuria (Chronic) Hearing loss (Chronic) in both ears Anemia of chronic disorder (Chronic) History of bacterial endocarditis (Chronic) Hypertension (Chronic) ESRD (end stage renal disease) (Chronic) Due to hypertension, On hemodialysis, TTS, followed by Dr. Goncalves Morbidly obese (Chronic) Sleep apnea (Chronic) 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 due to renal insufficiency (Chronic) Chronic kidney disease-mineral and bone disorder (Acute) Hospital Course and Treatment Imaging Results: Clinical Impression(s) from Imaging Studies Chest X-Ray 09/13/18 01:12 IMPRESSION: 1. Right middle lobe infiltrate is suggested compatible with pneumonia. 2. Thoracic dextroscoliosis, unchanged. at 0219 Reported and signed by: Qasim Aleman MD Electronically Signed: Qasim Aleman, at 2:17 EST Tel , Service support , Microbiology 09/13/18 03:20 Blood Culture (Wb) - Arm Left Bacteria Detection (PCR) - Final 09/13/18 03:20 Blood Culture (Wb) - Arm Left Blood Culture - Preliminary Gram Positive Cocci 09/13/18 03:15 Blood Culture (Wb) - Arm Right Blood Culture - Preliminary No growth in 48 hours. 09/13/18 06:00 Mucosa - Nasopharyngeal Influenza Types A,B Direct FA (GRETTA) - Final Influenzae B Dr. [facility] Operations: None Procedures: Stress test - Normal pharmacologic myocardial perfusion stress test with preserved ejection fraction of 80%, Transthoracic echo - Severe concentric left ventricular hypertrophy with 1+ tricuspid insufficiency. Summary of Care Provided: 38 YOM with a PMH of ESRD on HD, morbid obesity, YEIMY, hyperparathyroidism due to renal insufficiency, anemia of chronic disease, hearing loss in both ears, and HTN admitted to the hospital with PNA. He complained of constant chest pain. The chest pain increased with movement but not with a deep breath. Influenza swab was positive for Influenza B. CXR showed a RML infiltrate per the radiologist but, when I compared it to a previous CXR there was no significant difference. He was afebrile at admission and for the duration of his hospital stay. The white blood cell count at admission was 6.1 with an unremarkable differential and the WBC count was normal for the duration of his hospital stay. He had a very rare cough and his lungs were CTA from admission to the day of DC. K was 5.7 at admission. Troponin was increased at admission and it did not trend. The pain was not relieved with Oxycodone but, he felt morphine helped him. He had no hx of VTE and he denied calf pain. He was seen in consultation by Dr. Marsh from cardiology who felt his chest pain was musculoskeletal and recommended a stress test. The stress test was negative for ischemia with a preserved ejection fraction. Echocardiogram showed severe concentric left ventricular hypertrophy with preserved ejection fraction. There was trivial TR. There were no vegetations observed. 1 of 2 blood cultures drawn in the emergency room was positive for micrococcus per the micro tech and this is a contaminant. Follow-up blood cultures the following day had no growth at the time of discharge. He was also seen by Dr. Griffin while in the hospital and dialysis was performed. On 09/16/2018 he was afebrile with stable vital signs. He was discharged home with a prescription for Tamiflu and was instructed to take 1 after each dialysis session until gone. I feel like the chest pain may be due to the clotted fistula in the LUE. There were large dilated veins across the chest wall. In a note from Dr. Lance the pt is supposed to have the clot removed. The patient stated he was not told this. I called the nephrology office and was told by the forestry contractor that the dialysis center handles this. I called his dialysis center and I was told that they had set up appts for him to have this done but, they did not know if he followed up. He was discharged on 09/16/2018 and instructed to go to his dialysis center for his regularly scheduled appointment. I instructed him to call Dr. Melendez to clear up the issue about declotting the AV fistula. He was given a prescription for oxycodone to manage his chest pain until the issue with the clotted fistula can be resolved. GENERAL: alert, oriented X 3, Cooperative, NAD ORAL: moist mucosa, no mucosal lesions NECK: No JVD, supple, trachea midline LUNGS: CTA, symmetric chest expansion HEART: RRR, Normal S1 and S2, no rub, no gallop ABDOMEN: soft, NT, ND, BS present, no guarding with palpation, obese EXTREMITIES: mild 1+ edema - he is sitting in a chair with his legs dependent, no cyanosis, no calf tenderness SKIN: No rashes, no breakdown NEUROLOGIC: no focal neurologic deficits PSYCH: appropriate, normal affect, pleasant This note was generated with Puridify dictation software. It may contain incorrect words, spelling, and punctuation that were not noted in checking the note before signing. - Physical Exam Vital Signs Temp Pulse Resp BP Pulse Ox 98.0 F 102 H 18 104/56 L 100 09/16/18 08:00 09/16/18 08:00 09/16/18 08:00 09/16/18 08:00 09/16/18 08:00 Oxygen Flow Rate (L/min) 2.5 Oxygen Delivery Method Nasal Cannula Weight: 296 lb 1.293 oz Body Mass Index (BMI) 42.3 Intake and Output for Last 24 Hours Intake Total 780 / 780 2405 / 2405 0 / 0 Output Total 8000 / 8000 0 / 0 0 / 0 Balance -7220 / -7220 2405 / 2405 0 / 0 Microbiology Past 72 Hours 09/13/18 03:20 Bacteria Detection (PCR) - Final Blood Culture (Wb) - Arm Left Blood Culture - Preliminary 09/13/18 03:15 Blood Culture - Preliminary Laboratory Tests Past 24 Hrs Sodium 136 Potassium 5.3 H Chloride 98 Carbon Dioxide 23.0 BUN 74 H Creatinine 13.80 H* Discharge Activity: Return to Normal Activity Call your doctor if you observe: Fever of 101 or Higher, Shortness of breath, Uncontrolled pain, - - increasing cough Home Medications: Medications to take at Discharge cinacalcet 60 mg tablet 60 mg PO MOWEFR 10/10/17 Carvedilol [Coreg (Beta Yossi)] 1 tab PO BID 01/08/18 Ferric Citrate [Auryxia] 3 tab PO TIDCM 05/15/18 Oseltamivir Phosphate [Tamiflu] 30 tab PO UD #3 cap 09/16/18 Oxycodone [Oxyir] 5 - 10 mg PO Q6H PRN PRN 7 Days #40 tab 09/16/18 Following Prescrptions Were Given to Patient: Oxycodone [Oxyir] 5 - 10 mg PO Q6H PRN PRN 7 Days #40 tab PRN Reason: pain Oseltamivir Phosphate [Tamiflu] 30 tab PO UD #3 cap Primary Care Physician: Avinash Banda MD [Primary Care Provider] - Please follow up with your Primary Care Physician in: 5-7 days Minutes spent on discharge:: 40 Patient Condition:: Good Medical Necessity - Tobacco Use Smoking Status: Former smoker Tobacco Use: Non-smoker Meaningful Use Info Meaningful Use Diagnoses (Choose all that apply): None applicable Code Visit Inpatient E AND M: 45205 Disch Hosp 09/16/181946 <Electronically signed by Danyelle Yoder DO> Date Danyelle Yoder DO Cosigner Signature (if applicable): Date CC: Yanely Yoder; Avinash Banda MD; Keyla Melendez M.D. Signed CHEST 1 VIEW Observed: 09/16/2018 Status: F Source: CRUMP (PORTABLE) 5:44 PM [facility] REPOSITORY [facility] Imaging Services [address] [place] [address] Chest 1 View (Portable) MR#: [id number] Acct: [id number] Name: ELIA WESTON Rep #: [id number] : 1980 M 38 From: Salvador Carrero MD PCP: Avinash Banda MD Status: PRE ER Study: Chest 1 View (Portable) Date of Exam: 09/16/18 Exam# [id number] Ordering Dr: James Landers MD STUDY: X-RAY CHEST REASON FOR EXAM: Male, 38 years old. Doesn't feel well, short of breath TECHNIQUE: Single AP portable view of the chest. COMPARISON: Previous study of 09/13/2018 FINDINGS: traffic monitor specialist leads are seen. There is a hazy right middle lobe infiltrate, appearing similar to the previous study. There is no demonstrated pleural abnormality. Normal size heart. Normal mediastinum and michael. Normal visualized pulmonary arteries. Normal visualized aortic arch and descending thoracic aorta. There is a moderately severe lower thoracic dextroscoliosis. Normal visualized ribs, clavicles, and shoulders. There is no demonstrated abnormality of the visualized soft tissue structures of the upper abdomen. RAD/Chest 1 View (Portable) IMPRESSION: Hazy right middle lobe infiltrate, appearing similar to the previous study. Moderately severe thoracic dextroscoliosis. Electronically Signed: Salvador Carrero MD at 18:25 EST , Service support , CC: MD Alise Landers; Avinash Banda MD Brick Chimney Supervisor: Signed CBC W/DIFF, AUTOMATED Collected: 09/16/2018 Status: F Source: CRUMP 5:37 PM [facility] REPOSITORY TYPE CODE TESTS RESULT OUT OF RANGE REFERENCE UNITS LAB L100.1000 4.4-11.0 K/mm3 Normal WBC 7.6 LAB L100.1200 4.6-6.2 M/mm3 Low RBC 3.87 LAB L100.1300 13.0-16.5 g/dl Low HGB 10.7 LAB L100.1400 40-54 % Low HCT 34.7 LAB L100.1500 80-94 fL Normal MCV 89.7 LAB L100.1600 27.0-32.0 pg Normal MCH 27.6 LAB L100.1700 32-36 g/gl Low MCHC 30.8 LAB L100.1810 11.6-14.6 % High RDW CV 16.8 LAB L100.1820 35.1-43.9 fl High RDW SD 54.8 LAB L100.1900 150-450 K/mm3 Normal PLT 186 LAB L100.2000 6.2-12.0 fl Normal MPV 11.0 LAB L100.2100 47-70 % Normal NEUT% 69.1 LAB L100.2200 19-41 % Low LY% 12.5 LAB L100.2300 0-10 % High MONO% 16.6 LAB L100.2400 0-5 % Normal EO% 1.6 LAB L100.2500 0-1 % Normal BASO% 0.1 LAB L100.2550 0.0-0.9 % Normal IM GRAN % 0.100 Result Comment: IG% - Immature Granulocytes (promyelocytes, myelocytes and metamyelocytes) > 1% indicates that a LEFT SHIFT is Present. LAB L100.2620 2.0-7.7 X10 3/uL Normal Absolute Neut 5.3 LAB L100.2720 0.83-4.51 X10 3/ul Normal Absolute Lymph 0.95 Performed By: #### L100.0100 #### [facility] [address] [facility] [place], [place], [id number] BASIC METABOLIC Collected: 09/16/2018 Status: F Source: CRUMP PROFILE (BMP) 5:37 PM [facility] REPOSITORY TYPE CODE TESTS RESULT OUT OF RANGE REFERENCE UNITS LAB L501.0100 74-106 mg/dL Normal GLU 84 Result Comment: Please note revised GLUCOSE reference range effective 2017. LAB L501.1000 7-18 mg/dL High BUN 48 LAB L501.1100 0.70-1.30 mg/dL High alert CREAT,SERUM 10.30 Result Comment: Critical Result(s) Called at: 18:13:06 09/16/2018 by: DANNY VILLEGAS RN IN ED The validity of the calculated GFR AND GFRAA in patients over 70 years has not been determined. Clinical correlation is essential. LAB L501.1110 >60 mL/min Low EST GFR 6 Result Comment: Non- GFR Calc LAB L501.1115 >60 mL/min Low EST GFR - AA 7 Result Comment: GFR Calc LAB L501.1255 ml/min Normal Estimated CRCL 10.56 LAB L501.1300 10-20 RATIO Low BUN/CRE 4.7 LAB L501.2200 8.5-10 mg/dL Low .1 CA 8.2 LAB L501.5300 136-14 mmol/L Normal 5 NA 138 LAB L501.5600 3.5-5. mmol/L Normal 1 K 4.6 LAB L501.5900 98-107 mmol/L Low CL 97 LAB L501.6100 21.0-3 mmol/L Normal 2.0 CO2 28.0 LAB L501.6200 5-15 Normal GAP 13 Performed By: #### L500.2500, L501.4010 #### [facility] [address] [place] [place], [address] TROPONIN-I Collected: 09/16/2018 Status: F Source: CRUMP 5:37 PM [facility] REPOSITORY TYPE CODE TESTS RESULT OUT OF RANGE REFERENCE UNITS LAB L501.4010 <0.045 ng/mL High 0.238 TROPONIN-I Result Comment: TROPONIN-I EXPECTED VALUES <0.045 Negative 0.045 - 0.590 Consistent with Cardiac Damage > OR = 0.600 Critical Value Not every elevated troponin is indicative of LA. These values should be used with clinical judgement in examining the patient's clinical picture for diagnosis. To establish a diagnosis of LA versus myocardial injury, there must be a demonstrated rise and/or fall in the troponin values, in addition to ischemic symptoms, EKG changes, new regional wall motion abnormality, and/or angiographical evidence. PLEASE NOTE: REFERENCE RANGES EDITED 18 Performed By: #### L500.2500, L501.4010 #### [facility] [address] [place], [address] 12 LEAD ELECTROCARDIOGRAM Observed: 09/16/2018 Status: F Source: CRUMP 3:58 PM [facility] REPOSITORY [facility] Cardiovascular Services [address] [place] [address] 12 Lead EKG 09/13/18 0553 MR#: [id number] Acct: [id number] Name: ELIA WESTON Rep #: [id number] : 1980 38 From: Nnamdi Moreno MD Attending Dr: Yanely Yoder Status: DIS IN Ordering Dr: Danyelle Yoder DO Date: 09/15/18 Location: U Sex: M AA Admitted: 09/14/18 Test Reason : ADMIT Blood Pressure : / mmHG Vent. Rate : 119 BPM Atrial Rate : 119 BPM P-R Int : 336 ms QRS Dur : 074 ms QT Int : 304 ms P-R-T Axes : 000 110 061 degrees QTc Int : 427 ms Sinus tachycardia with 1st degree A-V block with occasional and consecutive Premature ventricular complexes Right axis deviation Pulmonary disease pattern Septal infarct , age undetermined Abnormal ECG When compared with ECG of 13-SEP-2018 00:41, MANUAL COMPARISON REQUIRED, DATA IS UNCONFIRMED Confirmed by NNAMDI MORENO MD ([id number]), online content editor REYNA PAULINO ([id number]) on 09/16/2018 3:57:47 PM Referred By: CARIN Confirmed By:NNAMDI MORENO MD 09/16/18 1557 Date Nnamdi Moreno MD CC: Yanely Yoder; Avinash Banda MD Signed 12 LEAD ELECTROCARDIOGRAM Observed: 09/16/2018 Status: F Source: CRUMP 3:57 PM [facility] REPOSITORY [facility] Cardiovascular Services [address] [place] [address] 12 Lead EKG 09/13/18 2255 MR#: [id number] Acct: [id number] Name: ELIA WESTON Rep #: [id number] : 1980 38 From: Nnamdi Moreno MD Attending Dr: Yanely Yoder Status: DIS IN Ordering Dr: Lg Krishnan MD Date: 09/13/18 Location: U Sex: M AA Admitted: 09/14/18 Test Reason : CP Blood Pressure : / mmHG Vent. Rate : 233 BPM Atrial Rate : 233 BPM P-R Int : 000 ms QRS Dur : 088 ms QT Int : 134 ms P-R-T Axes : 000 040 199 degrees QTc Int : 263 ms Junctional tachycardia Confirmed by NNAMDI MORENO MD ([id number]), online content editor REYNA PAULINO ([id number]) on 09/16/2018 3:57:04 PM Referred By: DR COPELAND Confirmed By:NNAMDI MORENO MD 09/16/18 5277 Date Nnamdi Moreno MD CC: Yanely Yoder; Avinash Banda MD; Lg Krishnan MD Signed 12 LEAD ELECTROCARDIOGRAM Observed: 09/16/2018 Status: F Source: CRUMP 3:55 PM [facility] REPOSITORY [facility] Cardiovascular Services [address] [place] [address] 12 Lead EKG 09/14/1812 MR#: [id number] Acct: [id number] Name: ELIA WESTON Rep #: [id number] : 1980 38 From: Nnamdi Moreno MD Attending Dr: Yanely Yoder Status: DIS IN Ordering Dr: Danyelle Yoder DO Date: 09/14/18 Location: [facility] Sex: M AA Admitted: 09/14/18 Test Reason : AM EKG Blood Pressure : / mmHG Vent. Rate : 142 BPM Atrial Rate : 105 BPM P-R Int : 000 ms QRS Dur : 068 ms QT Int : 326 ms P-R-T Axes : 000 110 041 degrees QTc Int : 501 ms Junctional tachycardia Right axis deviation Low voltage QRS Septal infarct , age undetermined Abnormal ECG When compared with ECG of 13-SEP-2018 22:55, MANUAL COMPARISON REQUIRED, DATA IS UNCONFIRMED Confirmed by NNAMDI MORENO MD ([id number]), online content editor REYNA PAULINO ([id number]) on 09/16/2018 3:54:58 PM Referred By: WESTON Confirmed By:NNAMDI MORENO MD 09/16/18 1555 Date Nnamdi Moreno MD CC: Yanely Yoder; Avinash Banda MD Signed 12 LEAD ELECTROCARDIOGRAM Observed: 09/16/2018 Status: F Source: NAJMA 3:26 PM [facility] REPOSITORY [facility] Cardiovascular Services [address] [place] [address] 12 Lead EKG 09/13/18 0041 MR#: [id number] Acct: [id number] Name: ELIA WESTON Rep #: [id number] : 1980 38 From: Nnamdi Moreno MD Attending Dr: Yanely Yoder Status: DIS IN Ordering Dr: Emre Harrison MD Date: 09/13/18 Location: [facility] Sex: M AA Admitted: 09/14/18 Test Reason : CP Blood Pressure : / mmHG Vent. Rate : 106 BPM Atrial Rate : 106 BPM P-R Int : 260 ms QRS Dur : 074 ms QT Int : 332 ms P-R-T Axes : 071 078 057 degrees QTc Int : 441 ms Sinus tachycardia with 1st degree A-V block with Premature supraventricular complexes and with occasional Premature ventricular complexes Septal infarct , age undetermined Abnormal ECG Confirmed by JOSH STAHL, NNAMDI ([id number]), online content editor REYNA PAULINO ([id number]) on 09/16/2018 3:26:10 PM Referred By: LINA Confirmed By:NNAMDI MORENO MD 09/16/18 1526 Date Nnamdi Moreno MD CC: Yanely Yoder; Avinash Banda MD; Emre Harrison MD Signed DISCHARGE INSTRUCTION Observed: 09/16/2018 Status: F Source: NAJMA 8:50 AM [facility] REPOSITORY [facility] Medical Records Department [address] [place] [address] Instructions for Home/Discharge Instructions 09/16/18 0839 MR#: [id number] Acct: [id number] Name: ELIA WESTON Rep #: [id number] : 1980 38 From: Danyelle Yoder DO PCP: Avinash Banda MD Status: ADM IN - Discharge Diagnoses Current Active Problems: Current Active and Chronic Problems (Last Reviewed 09/13/18 @ 05:00 by Anuel Copeland MD) HCAP (healthcare-associated pneumonia) (Acute) Chest pain at rest (Acute) Hyperkalemia (Acute) Chronic kidney disease-mineral and bone disorder (Acute) You will use the following diet at home:: Renal (restricted protein/sodium) Your food should be the consistency of: Regular Your liquids should be the consistency of: Regular/Thin Discharge Activity: Return to Normal Activity Call your doctor if you observe: Fever of 101 or Higher, Shortness of breath, Uncontrolled pain, - - increasing cough Additional Instructions: You have the Flu. You will take Tamiflu after dialysis until the tablets are all gone. I believe that the chest pain is coming from the clotted fistula. The veins in your chest are all dilated because of this and you can see them through your skin. I think this will improve after the clot is removed. In the meantime I am giving you a Prescription for oxycodone to help with the pain. Pending Tests on Discharge: Final on Blood cultures drawn 09/14/18. 1 of 2 done at admisison grew Micrococcus. Allergies/Adverse Reactions: Allergies No Known Allergies Allergy (Verified 09/13/18 00:38) Medications to take at Discharge cinacalcet 60 mg tablet 60 mg PO MOWEFR 10/10/17 Carvedilol [Coreg (Beta Yossi)] 1 tab PO BID 01/08/18 Ferric Citrate [Auryxia] 3 tab PO TIDCM 05/15/18 Oseltamivir Phosphate [Tamiflu] 30 tab PO UD #3 cap 09/16/18 Oxycodone [Oxyir] 5 - 10 mg PO Q6H PRN PRN 7 Days #40 tab 09/16/18 The following prescriptions were given: Oxycodone [Oxyir] 5 - 10 mg PO Q6H PRN PRN 7 Days #40 tab PRN Reason: pain Oseltamivir Phosphate [Tamiflu] 30 tab PO UD #3 cap Primary Care Physician: Avinash Banda MD [Primary Care Provider] - Please follow up with your Primary Care Physician in: 5-7 days Test Results: Test results from this visit will be discussed in further detail at your follow-up appointment, if applicable. Proposed Discharge Date: 09/16/18 09/16/18 0850 <Electronically signed by Danyelle Yoder DO> Date Danyelle Yoder DO CC: Salbador Marsh MD; Jolynn Griffin MD; Avinash Banda MD RENAL PROFILE Collected: 09/16/2018 Status: F Source: NAJMA 7:20 AM [facility] REPOSITORY TYPE CODE TESTS RESULT OUT OF RANGE REFERENCE UNITS LAB L501.0100 74-106 mg/dL Normal GLU 93 Result Comment: Please note revised GLUCOSE reference range effective 2017. LAB L501.1000 7-18 mg/dL High BUN 74 LAB L501.1100 0.70-1.30 mg/dL High alert CREAT,SERUM 13.80 Result Comment: Critical Result(s) Called at: 08:44:53 09/16/2018 by: Luisa Coker The validity of the calculated GFR AND GFRAA in patients over 70 years has not been determined. Clinical correlation is essential. LAB L501.1110 >60 mL/min Low EST GFR 4 Result Comment: Non- GFR Calc LAB L501.1115 >60 mL/min Low EST GFR - AA 5 Result Comment: GFR Calc LAB L501.1255 ml/min Normal Estimated CRCL 7.64 LAB L501.1300 10-20 RATIO Low BUN/CRE 5.4 LAB L501.1800 3.2-5.0 g/dL Low ALB 2.8 LAB L501.2200 8.5-10. mg/dL Low 1 CA 8.2 LAB L501.2300 2.5-4.9 mg/dL High PHOS alert 10.1 Result Comment: Critical Result(s) Called at: 08:44:53 09/16/2018 by: Luisa Coker LAB L501.5300 136-145 mmol/L Normal NA 136 LAB L501.5600 3.5-5.1 mmol/L High K 5.3 LAB L501.5900 98-107 mmol/L Normal CL 98 LAB L501.6100 21.0-32.0 mmol/L Normal CO2 23.0 Performed By: #### L500.3600 #### [facility] [address] [place], [address] ECHO, COMPLETE W/ Observed: 09/15/2018 Status: F Source: CRUMP CONTRAST 4:37 PM [facility] REPOSITORY [facility] Cardiovascular Services [address] [place] [address] Echo Complete W/ Contrast 09/15/18 1457 MR#: [id number] Acct: [id number] Name: ELIA WESTON Rep #: [id number] : 1980 38 From: Nnamdi Moreno MD Attending Dr: Yanely Yoder Status: ADM IN Ordering Dr: Anuel Copeland MD Date: 09/13/18 Location: [facility] Sex: M AA Admitted: 09/14/18 Reason For Study: chest pain Procedure This was a 2D Doppler, Color Flow transthoracic echocardiogram. The study was technically difficult. Due to body habitus. Contrast injection was performed. Exam performed portable in patient room. Left Ventricle Normal LV size. Severe concentric left ventricular hypertrophy. Left ventricular systolic function is normal. The estimated ejection fraction is 70 %. No regional wall motion abnormalities noted. Right Ventricle Normal RV size. Normal systolic function. Atria The left atrium is mildly enlarged. Normal right atrium. Mitral Valve There is moderate to severe mitral annular calcification. Tricuspid Valve Normal tricuspid valve. Mild (1+) tricuspid valve insufficiency. Pulmonary artery systolic pressure is 24 mmHg. Pericardium/Pleural No pericardial effusion. Medication Diluted definity 4.0ml given slow IV push to enhance endocardial definition. MMode/2D Measurements AND Calculations LVIDd: 3.8 cm IVSd: 1.5 cm Ao root diam: 2.6 cm LVIDs: 2.3 cm LVPWd: 1.5 cm FS: 39.3 % LAV(MOD-bp): 77.2 ml LA dimension(2D): 4.3 cm LA A4 area: 24.5 cm2 LAV(MOD-bp) Indexed: 32.0 ml/m2 LAV(MOD-sp2): 75.3 ml LAV(MOD-sp4): 78.3 ml Doppler Measurements AND Calculations MV E max george: 241.9 cm/sec Ao V2 max: 172.2 cm/sec LV V1 max: 137.6 cm/sec Ao max P.9 mmHg LV V1 max P.6 mmHg PA V2 max: 112.5 cm/sec TR max george: 228.7 cm/sec TR max P.9 mmHg Interpretation Summary Normal LV size. Severe concentric left ventricular hypertrophy. Mild (1+) tricuspid valve insufficiency. Contrast injection was performed. Compared to prior study, there is no significant change. Ordering Physician: Anuel Copeland Referring Physician: Avinash Banda Performed By: Caroline Valero RDCS, RVT 09/15/18 1636 Date Nnamdi Moreno MD CC: Yanely Yoder; Avinash Banda MD; Anuel Copeland MD Date Dictated: 09/15/18 1457 Date Transcribed: 09/15/18 1636 Brick Chimney Supervisor: Signed STRESS REPORT Observed: 09/15/2018 Status: F Source: CRUMP 12:26 PM [facility] REPOSITORY [facility] Cardiovascular Services [address] [place] [address] MR#: [id number] Acct: [id number] Name: ELIA WESTON Rep #: [id number] : 1980 38 From: Nnamdi Moreno MD Primary Care: Avinash Banda MD Status: ADM IN Ordering Dr: Sex: M AA Stress Test Report Pharmacologic myocardial perfusion stress test. 38-year-old man with a history of abnormal cardiac enzymes. History of renal failure. Stress protocol: Resting EKG demonstrates sinus rhythm with a rate of 76 bpm first-degree AV block is present. Poor R wave progression is noted. 0.4 mg of regadenoson was infused per usual protocol followed by rapid intravenous saline flush injection continuous EKG monitoring was performed. Patient maintained sinus rhythm throughout the recording. The maximum heart rate attained was 115 bpm which appeared to be a junctional tachycardia though sinus tachycardia cannot be completely excluded with a first-degree AV block. The maximum heart rate was 62 bpm. The maximum workload was 1 metabolic equivalent. The resting blood pressure 126/81 with a final blood pressure 134/78. At rest and during infusion there were no ST or T wave changes noted suggest ischemia. Myocardial perfusion protocol. 14.8 mCi of technetium 99m sestamibi was injected at rest. 0.4 mg of regadenoson was infused per usual protocol. At peak infusion 44.7 mCi of technetium 99m sestamibi was injected stress images were obtained stress and rest images were reconstructed and compared in the short axis vertical and horizontal long axis. Gated images were also obtained next Perfusion SPECT analysis: Review of the stress images demonstrate normal uptake of tracer noted in all areas of the myocardium. The resting images similarly demonstrate normal uptake of tracer noted in all areas of myocardium. No areas of reversibility were noted. Gated SPECT analysis: The gated ejection fraction is noted to be 80%. Conclusion: Normal pharmacologic myocardial perfusion stress test. Preserved ejection fraction. 09/15/18 1226 <Electronically signed by Nnamdi Moreno MD> Date Nnamdi Moreno MD CC: Yanely Yoder; Avinash Banda MD Date Dictated: 09/15/181221 Date Transcribed: 09/15/181221 Brick Chimney Supervisor: [place] Signed RENAL PROFILE Collected: 09/15/2018 Status: F Source: NAJMA 5:25 AM [facility] REPOSITORY TYPE CODE TESTS RESULT OUT OF RANGE REFERENCE UNITS LAB L501.0100 74-106 mg/dL High GLU 121 Result Comment: Fasting Glucose result from 100 to 125 mg/dL suggests IMPAIRED HOMEOSTASIS per A.D.A. criteria. Please note revised GLUCOSE reference range effective 2017. LAB L501.1000 7-18 mg/dL High BUN 54 LAB L501.1100 0.70-1.30 mg/dL High alert CREAT,SERUM 11.40 Result Comment: Critical Result(s) Called at: 06:29:26 09/15/2018 by: Chiki Wood RN ([facility]). The validity of the calculated GFR AND GFRAA in patients over 70 years has not been determined. Clinical correlation is essential. LAB L501.1110 >60 mL/min Low EST GFR 5 Result Comment: Non- GFR Calc LAB L501.1115 >60 mL/min Low EST GFR - AA 7 Result Comment: GFR Calc LAB L501.1255 ml/min Normal Estimated CRCL 9.25 LAB L501.1300 10-20 RATIO Low BUN/CRE 4.7 LAB L501.1800 3.2-5.0 g/dL Low ALB 3.0 LAB L501.2200 8.5-10. mg/dL Normal 1 CA 8.8 LAB L501.2300 2.5-4.9 mg/dL High PHOS 7.4 LAB L501.5300 136-145 mmol/L Low NA 133 LAB L501.5600 3.5-5.1 mmol/L High K 5.9 LAB L501.5900 98-107 mmol/L Low CL 95 LAB L501.6100 21.0-32 mmol/L Normal .0 CO2 27.0 Performed By: #### L500.3600 #### [facility] [address] [place], [address] CONSULTATION Observed: 09/14/2018 Status: F Source: CRUMP 4:13 PM [facility] REPOSITORY [facility] Medical Records Department [address] [place] [address] Consultation 09/14/18 1550 MR#: [id number] Acct: [id number] Name: ELIA WESTON Rep #: [id number] : 1980 38 From: Jolynn Griffin MD PCP: Avinash Banda MD Status: ADM IN Y Location: [place] [address] Problem List (1) Hyperkalemia Status: Acute (2) Chronic kidney disease-mineral and bone disorder Status: Acute (3) ESRD (end stage renal disease) Status: Chronic Comment: Due to hypertension, On hemodialysis, TTS, followed by Dr. Goncalves Consultation - Renal PCP/ Referring MD: Requesting physician: [] Primary care physician: Avinash Banda MD - History of Present Illness History of Present Illness: The patient is a 38 year old M ESRD on MWF HD schedule. Pt presented with pressure like chest pain. Chest xray showed right lung infiltrate . Influenza B is + one of BC bottle is positive for G+ cocci. Cardiology is following for chest pain work up Renal team was consulted for ESRD care. HD today was arranged for today . Pt was seen during HD session Pt has left femoral vein tunneled cath. Pt's LUE AVF clotted 2 weeks ago and he is supposed to follow with [facility] this week for declotting Pt denied any compliant today ROS: 12 systems review is negative today[] - Allergies Allergies: Allergies No Known Allergies Allergy (Verified 09/13/18 00:38) - Current Medications Current Medications: Current Medications Aspirin (Ecotrin) 81 mg PO DAILY@0800 [facility] Last Admin: 09/14/18 05:52 Dose: 81 mg Atorvastatin Calcium (Lipitor) 20 mg PO QHS [facility] Last Admin: 09/13/18 22:13 Dose: 20 mg Carvedilol (Coreg) 3.125 mg PO BID [facility] Last Admin: 09/13/18 22:13 Dose: 3.1249 mg Cinacalcet (Sensipar) 60 mg PO TUTHSA [facility] Colchicine (Colchicine) 0.6 mg PO DAILY [facility] Last Admin: 09/13/18 22:12 Dose: 0.6 mg Heparin Sodium (Porcine) (Heparin Na) 5,000 unit SC Q8 [facility] Last Admin: 09/13/18 23:27 Dose: Not Given Morphine Sulfate () 1 mg IV Q4H PRN PRN PRN Reason: SEVERE PAIN (6-1010) Last Admin: 09/14/18 01:09 Dose: 1 mg Nitroglycerin (Nitrostat) 0.4 mg SUBLINGUAL Q5M PRN PRN Reason: CHEST PAIN Oseltamivir Phosphate (Tamiflu) 0 mg PO UD [facility] Stop: 09/17/18 10:01 Last Admin: 09/13/18 11:17 Dose: 30 mg Oxycodone HCl (Oxyir) 5 mg PO BID PRN PRN PRN Reason: pain Last Admin: 09/13/18 22:11 Dose: 5 mg Prednisone () 40 mg PO DAILY@0800 [facility] Sevelamer Carbonate (Renvela) 800 mg PO TIDCM [facility] Sodium Chloride () 5 - 15 ml IV UD PRN PRN Reason: SALINE FLUSH Last Admin: 09/14/18 01:09 Dose: 10 ml - Past Medical History Past Medical History (Chronic Problems): Chronic Problems (Last Reviewed 09/13/18 @ 05:00 by Anuel Copeland MD) Sleep apnea (Chronic) Lightheadedness (Chronic) Chronic pelvic pain in male (Chronic) Pelvic mass (Chronic) Hematuria (Chronic) Hearing loss (Chronic) in both ears Anemia of chronic disorder (Chronic) History of bacterial endocarditis (Chronic) Hypertension (Chronic) ESRD (end stage renal disease) (Chronic) Due to hypertension, On hemodialysis, TTS, followed by Dr. Goncalves Morbidly obese (Chronic) Sleep apnea (Chronic) 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 due to renal insufficiency (Chronic) - Past Surgical History Surgical History: herniorrhaphy, - - Social History Smoking Status: Former smoker - Family History Maternal History Items: No pertinent history Patient Problems: Active and Suspected Problems (Last Reviewed 09/13/18 @ 05:00 by Anuel Copeland MD) HCAP (healthcare-associated pneumonia) (Acute) Chest pain at rest (Acute) Hyperkalemia (Acute) Chronic kidney disease-mineral and bone disorder (Acute) - Physical Exam General: Alert, Oriented x3 HEENT: Atraumatic Oral: Moist Mucosa Neck: Supple, No JVD Lungs: Clear to auscultation, Normal air movement Cardiovascular: Regular rate, Regular Rhythm, Normal S1, Normal S2 Abdomen: Bowel Sounds Present, Soft, Non Tender Extremities: No clubbing, No cyanosis Skin: No rashes Musculoskeletal: No Tenderness to Palpation of Joints or Extremities Lymphatic: No Cervical, Supraclavicular, or Inguinal Adenopathy Neurological: Cranial nerves II-XII grossly intact, Neuro grossly intact Psych/Mental Status: Normal Affect Vital Signs Temp Pulse Resp BP Pulse Ox 98.7 F 111 H 16 135/74 H 100 09/14/18 11:45 09/14/18 15:09 09/14/18 11:45 09/14/18 11:45 09/14/18 11:45 Oxygen Flow Rate (L/min) 2 Oxygen Delivery Method Room Air Weight: 133.1 kg Body Mass Index (BMI) 42.3 Intake and Output for Last 24 Hours Intake Total 800 / 800 300 / 300 Balance 800 / 800 300 / 300 Microbiology Past 72 Hours 09/13/18 03:20 Bacteria Detection (PCR) - Final Laboratory Tests Past 24 Hrs WBC RBC Hgb Hct MCV MCH MCHC RDW RDW Differential Plt Count MPV Immature Gran % (Auto) WBC 6.4 RBC 4.17 L Hgb 11.5 L Hct 38.1 L Assessment/Plan All Active Problems (Last Reviewed 09/13/18 @ 05:00 by Anuel Copeland MD) HCAP (healthcare-associated pneumonia) (Acute) Chest pain at rest (Acute) Hyperkalemia (Acute) Chronic kidney disease-mineral and bone disorder (Acute) Junctional tachycardia (Acute) Dyspnea (Acute) Clotted dialysis access (Acute) History of blood clots (Acute) Acute viral bronchitis (Acute) Chest pain, musculoskeletal (Acute) Chest pain (Acute) 1- ESRD on MWF. Pt goes to [facility] HD unit. HD session today : BQ 300 BQ 600 UF 4 L HD access : left femoral vein TC 2- hyperkalemia: K is 7.0. HD today with 1k dialysate for the 1st hour then 2K Check K after HD 3- HTN: BP is well controlled 4- BMD: continue sevelamer and sensipar. check P/Ca in am 5- Influenza. On tamiflu 6- Chest pain. work up as per cardiology service. going for stress test tomorrow 7- Bacteremia: one bottle is positive. please repeat it Renal team will continue to follow JOLYNN GRIFFIN MD 09/14/18 1613 <Electronically signed by Jolynn Griffin MD> Date Jolynn Griffin MD Cosigner Signature (if applicable): Date CC: Salbador Marsh MD; Jolynn Griffin MD; Avinash Banda MD Signed Observed: 09/14/2018 Status: F Source: NAJMA CULTURE, BLOOD (WB) 12:45 PM [facility] REPOSITORY Has pt arrived? Y BC No growth in 5 days. Performed By: #### M200.1000 #### [facility] [address] [place], [place], [address] Observed: 09/14/2018 Status: F Source: NAJMA CULTURE, BLOOD (WB) 12:35 PM [facility] REPOSITORY Has pt arrived? Y BC No growth in 5 days. Performed By: #### M200.1000 #### [facility] [address] [place], [address] CBC W/DIFF, AUTOMATED Collected: 09/14/2018 Status: F Source: NAJMA 6:18 AM [facility] REPOSITORY TYPE CODE TESTS RESULT OUT OF RANGE REFERENCE UNITS LAB L100.1000 4.4-11.0 K/mm3 Normal WBC 6.4 LAB L100.1200 4.6-6.2 M/mm3 Low RBC 4.17 LAB L100.1300 13.0-16.5 g/dl Low HGB 11.5 LAB L100.1400 40-54 % Low HCT 38.1 LAB L100.1500 80-94 fL Normal MCV 91.4 LAB L100.1600 27.0-32.0 pg Normal MCH 27.6 LAB L100.1700 32-36 g/gl Low MCHC 30.2 LAB L100.1810 11.6-14.6 % High RDW CV 16.6 LAB L100.1820 35.1-43.9 fl High RDW SD 54.3 LAB L100.1900 150-450 K/mm3 Normal PLT 187 LAB L100.2000 6.2-12.0 fl Normal MPV 11.7 LAB L100.2100 47-70 % High NEUT% 85.7 LAB L100.2200 19-41 % Low LY% 10.3 LAB L100.2300 0-10 % Normal MONO% 3.4 LAB L100.2400 0-5 % Normal EO% 0.2 LAB L100.2500 0-1 % Normal BASO% 0.2 LAB L100.2550 0.0-0.9 % Normal IM GRAN % 0.200 Result Comment: IG% - Immature Granulocytes (promyelocytes, myelocytes and metamyelocytes) > 1% indicates that a LEFT SHIFT is Present. LAB L100.2620 2.0-7.7 X10 3/uL Normal Absolute Neut 5.5 LAB L100.2720 0.83-4.51 X10 3/ul Low Absolute Lymph 0.66 Performed By: #### L100.0100 #### [facility] [address] [facility] [address] [place], [place], [address] PROTHROMBIN TIME W/INR Collected: 09/14/2018 Status: F Source: CRUMP 6:18 AM [facility] REPOSITORY TYPE CODE TESTS RESULT OUT OF RANGE REFERENCE UNITS LAB L300.4150 11.7-14.9 SECONDS Normal PROTIME 14.8 LAB L300.4200 Normal INR 1.2 Performed By: #### L300.3900, L300.4310 #### [facility] [address] [place], [place], [address] PARTIAL THROMBOPLAST Collected: 09/14/2018 Status: F Source: NAJMA TIME 6:18 AM [facility] REPOSITORY TYPE CODE TESTS RESULT OUT OF RANGE REFERENCE UNITS LAB L300.4310 24.1-36.2 Seconds Normal PTT 33.3 Performed By: #### L300.3900, L300.4310 #### [facility] [address] [place], [address] VANCOMYCIN, RANDOM Collected: 09/14/2018 Status: F Source: NAJMA LEVEL 6:18 AM [facility] REPOSITORY TYPE CODE TESTS RESULT OUT OF REFERENCE UNITS RANGE LAB L501.8850 0.0-15.0 ug/mL High VANCO, RANDOM 21.5 Result Comment: VANCOMYCIN STANDARD DRUG THERAPY: CRITICAL VALUE IS > 15.0 mg/L VANCOMYCIN HIGH INTENSITY THERAPY: CRITICAL VALUE IS > 20.0 mg/L PLEASE CONTACT PHARMACY SERVICES (#[id number]) FOR INTERPRETATION OF RESULTS. THIS RESULT DOES NOT REPRESENT A PEAK OR TROUGH LEVEL FOR THIS DRUG. Performed By: #### L501.8850 #### [facility] [address] [place], [address] RENAL PROFILE Collected: 09/14/2018 Status: F Source: NAJMA 6:18 AM [facility] REPOSITORY TYPE CODE TESTS RESULT OUT OF RANGE REFERENCE UNITS LAB L501.0100 74-106 mg/dL Normal GLU 105 Result Comment: Fasting Glucose result from 100 to 125 mg/dL suggests IMPAIRED HOMEOSTASIS per A.D.A. criteria. Please note revised GLUCOSE reference range effective 2017. LAB L501.1000 7-18 mg/dL High BUN 72 LAB L501.1100 0.70-1.30 mg/dL High alert CREAT,SERUM 14.90 Result Comment: Critical Result(s) Called at: 07:06:41 09/14/2018 by: Luisa Pierre The validity of the calculated GFR AND GFRAA in patients over 70 years has not been determined. Clinical correlation is essential. LAB L501.1110 >60 mL/min Low EST GFR 4 Result Comment: Non- GFR Calc LAB L501.1115 >60 mL/min Low EST GFR - AA 5 Result Comment: GFR Calc LAB L501.1255 ml/min Normal Estimated CRCL 7.08 LAB L501.1300 10-20 RATIO Low BUN/CRE 4.8 LAB L501.1800 3.2-5.0 g/dL Low ALB 2.9 LAB L501.2200 8.5-10. mg/dL Normal 1 CA 8.5 LAB L501.2300 2.5-4.9 mg/dL High PHOS 6.5 LAB L501.5300 136-145 mmol/L Normal NA 138 LAB L501.5600 3.5-5.1 mmol/L High K alert 7.0 Result Comment: Critical Result(s) Called at: 07:06:29 09/14/2018 by: Luisa Guthrie to [facility] LAB L501.5900 98-107 mmol/L Normal CL 101 LAB L501.6100 21.0-32.0 mmol/L Normal CO2 25.0 Performed By: #### L500.3600 #### [facility] [address] [place] [address]. [place], [place], [address] BETH W/ REFLEX MULT Collected: 09/14/2018 Status: F Source: CRUMP CONFIRM 6:18 AM [facility] REPOSITORY TYPE CODE TESTS RESULT OUT OF RANGE REFERENCE UNITS LAB L3100.5475 Negative Normal Negative BETH-DIRECT Result Comment: Performed at: - [facility] [id number] Electronic Prepress Technician: William Castro PhD, Phone: [phone] Performed By: #### L3100.5450 #### [facility] (refer to report for specific site) refer to report for address and phone number CONSULTATION Observed: 09/13/2018 Status: F Source: CRUMP 12:34 PM [facility] REPOSITORY [facility] Medical Records Department [address] [place] [address] Consultation 09/13/18 1228 MR#: [id number] Acct: [id number] Name: ELIA WESTON Javier Rep #: [id number] : 1980 38 From: Salbador Marsh MD PCP: Avinash Banda MD Status: ADM SILAS Y Location: [place] [address] Problem List (1) Chest pain at rest Status: Acute Reason for Consult Date of Consultation: 09/13/18 History of Present Illness: The patient is a 38 year old M with past medical history significant for obesity and end-stage renal disease on hemodialysis. He was driving yesterday when he experienced chest pain. Cording to him, it felt as a ton of bricks on his chest. No radiation to the arms, neck or jaw. Denies any associated shortness of breath. No diaphoresis. No palpitations. Pain is exacerbated with movement of his upper torso. He continues to have the discomfort though it has lessened in intensity. Denies any previous history of coronary artery disease. Denies any history of exertional angina. No orthopnea or PND. [] Past Medical History Allergies/Adverse Reactions: Allergies No Known Allergies Allergy (Verified 09/13/18 00:38) Home Medications: Ambulatory Orders Medication Instructions Recorded cinacalcet 60 mg tablet 60 mg PO MOWEFR 10/10/17 Carvedilol [Coreg (Beta Yossi)] 1 tab PO BID 01/08/18 Ferric Citrate [Auryxia] 3 tab PO TIDCM 05/15/18 Past Medical History (Chronic Problems): Chronic Problems (Last Reviewed 09/13/18 @ 05:00 by Anuel Copeland MD) Sleep apnea (Chronic) Lightheadedness (Chronic) Chronic pelvic pain in male (Chronic) Pelvic mass (Chronic) Hematuria (Chronic) Hearing loss (Chronic) in both ears Anemia of chronic disorder (Chronic) History of bacterial endocarditis (Chronic) Hypertension (Chronic) ESRD (end stage renal disease) (Chronic) Due to hypertension, On hemodialysis, TTS, followed by Dr. Goncalves Morbidly obese (Chronic) Sleep apnea (Chronic) 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 due to renal insufficiency (Chronic) Surgical History: herniorrhaphy, - - *Family History Maternal History Items: No pertinent history Smoking Status: Former smoker Review of Systems - Review of Systems General: Denies: Fever, Chills Cardiovascular: Reports: Chest Discomfort at Rest. Denies: Shortness of Breath, Shortness of Breath at Rest, Orthopnea, PND, Peripheral Edema Respiratory: Denies: Hemoptysis Neurological: Denies: History of TIA, History of CVA Subjectve: Comfortable. Lying flat in the bed. No apparent distress. Obese. Objective: Vital Signs Temp Pulse Resp BP Pulse Ox 97.6 F L 102 H 20 H 110/71 100 09/13/18 10:00 09/13/18 10:57 09/13/18 10:00 09/13/18 10:00 09/13/18 10:00 Oxygen Flow Rate (L/min) 2.5 Oxygen Delivery Method Nasal Cannula Weight: 133.7 kg Body Mass Index (BMI) 42.3 General: Awake, Alert, Oriented x 3, No Acute Distress HEENT: Atraumatic, Normocephalic Neck: Supple Chest Wall: - - Positive tenderness on palpation of anterior chest wall. Lungs: Clear to auscultation Cardiovascular: Regular Rhythm, Normal S1, Normal S2, No Rubs Abdomen: Bowel Sounds Present, Soft Extremities: No edema Neurological: No Focal Motor or Sensory Deficit 09/13/18 01:20: WBC 6.1, RBC 3.90 L, Hgb 11.1 L, Hct 35.8 L, MCV 91.8, MCH 28.5, MCHC 31.0 L, RDW 16.6 H, RDW Differential 54.5 H, Plt Count 172, MPV 11.3, Immature Gran % (Auto) 0.200, Neut % (Auto) 55.6, Lymph % (Auto) 25.4, Montgomery % (Auto) 16.2 H, Eos % (Auto) 2.3, Baso % (Auto) 0.3, Absolute Neuts (auto) 3.4, Total Counted Not Reportable 09/13/18 01:20: Sodium Cancelled, Potassium Cancelled, Chloride Cancelled, Carbon Dioxide Cancelled, Anion Gap Cancelled, BUN Cancelled, Creatinine Cancelled, Est GFR (MDRD) Af Amer Cancelled, Est GFR (MDRD) Non-Af Cancelled, BUN/Creatinine Ratio Cancelled, Glucose Cancelled, Calcium Cancelled, Troponin I Cancelled 09/13/18 01:20: D-Dimer Quant (PE/DVT) 1.44 H* 09/13/18 02:20: Sodium 136, Potassium 5.7 H, Chloride 99, Carbon Dioxide 26.0, Anion Gap 11, BUN 55 H, Creatinine 12.40 H*, Est GFR (MDRD) Af Amer 6 L, Est GFR (MDRD) Non-Af 5 L, BUN/Creatinine Ratio 4.4 L, Glucose 92, Calcium 8.6, Troponin I 0.154 H 09/13/18 03:15: Lactic Acid 1.0 09/13/18 06:35: B-Natriuretic Peptide 47.2 09/13/18 06:35: WBC 5.8, RBC 4.26 L, Hgb 11.8 L, Hct 39.0 L, MCV 91.5, MCH 27.7, MCHC 30.3 L, RDW 16.7 H, RDW Differential 54.9 H, Plt Count 176, MPV 11.1 09/13/18 06:35: Sodium 138, Potassium 5.4 H, Chloride 98, Carbon Dioxide 26.0, Anion Gap 14, BUN 55 H, Creatinine 12.90 H*, Est GFR (MDRD) Af Amer 6 L, Est GFR (MDRD) Non-Af 5 L, BUN/Creatinine Ratio 4.3 L, Glucose 85, Calcium 8.9, Total Bilirubin 0.50, Triglycerides 114, Cholesterol 149, LDL Cholesterol 85, VLDL Cholesterol 23, HDL Cholesterol 41 09/13/18 06:35: Troponin I 0.135 H 09/13/18 09:09: Troponin I 0.158 H Rhythm: Normal sinus rhythm. EKG: Normal sinus rhythm. Poor R wave progression across anterior leads but this could be related to his obesity and lead placement. ECHO: Stress Test: Cardiac Cath: PCI: CT Surgery: Holter monitor: EPS: PPM: CXR: Chest CT Scan: Assessment/Plan 1. Chest pain. Reproducible. Worsened with movement of upper torso. Consider musculoskeletal. Please also note that the patient is diagnosed with pneumonia on his chest x-ray. Doubt cardiac etiology. Troponin elevation without any significant upward or downward trend. Likely secondary to end-stage renal disease. 2. Patient however has risk factors for coronary artery disease. Will check a pharmacological stress test to rule out ischemia. 3. Check 2D echocardiogram. 4. Pneumonia. 5. End-stage renal disease on hemodialysis. 6. Obesity. 09/13/18 1234 <Electronically signed by Salbador Marsh MD> Date Salbador Marsh MD Cosigner Signature (if applicable): Date CC: Salbador Marsh MD; Jolynn Griffin MD; Avinash Banda MD Signed TROPONIN-I Collected: 09/13/2018 Status: F Source: [facility] 9:09 [facility] REPOSITORY Order Comment: 'TROP' Serial specimen #1, #2 or #3: 3 TYPE CODE TESTS RESULT OUT OF RANGE REFERENCE UNITS LAB L501.4010 <0.045 ng/mL High 0.158 TROPONIN-I Result Comment: TROPONIN-I EXPECTED VALUES <0.045 Negative 0.045 - 0.590 Consistent with Cardiac Damage > OR = 0.600 Critical Value Not every elevated troponin is indicative of LA. These values should be used with clinical judgement in examining the patient's clinical picture for diagnosis. To establish a diagnosis of LA versus myocardial injury, there must be a demonstrated rise and/or fall in the troponin values, in addition to ischemic symptoms, EKG changes, new regional wall motion abnormality, and/or angiographical evidence. PLEASE NOTE: REFERENCE RANGES EDITED 18 Performed By: #### L501.4010 #### [facility] [address] [place], [place], [id number] CRP Collected: 09/13/2018 Status: F Source: [facility] 9:09 [facility] REPOSITORY TYPE CODE TESTS RESULT OUT OF RANGE REFERENCE UNITS LAB L501.6710 0.0-3.0 mg/L High 40.40 C-REACTIVE PROT Result Comment: C-Reactive Protein (CRP) provides useful information for the diagnosis, therapy and monitoring of inflammatory processes and associated diseases. For the evaluation of Relative Risk for Cardiovascular Disease, a High Sensitivity CRP (HSCRP) should be ordered. Performed By: #### L501.6710, L101.9900 #### [facility] [address] [place], [place], [address] RHEUMATOID FACTOR Collected: 09/13/2018 Status: F Source: [facility] 9:09 [facility] REPOSITORY TYPE CODE TESTS RESULT OUT OF RANGE REFERENCE UNITS LAB L505.7010 <15 IU/mL Normal RHEUMATOID FAC < 10.0 Performed By: #### L505.7010 #### [facility] [address] [place], [place], [address] CBC-COMPLETE BLOOD CNT Collected: 09/13/2018 Status: F Source: [facility] NO DIFF 6:35 AM [facility] REPOSITORY TYPE CODE TESTS RESULT OUT OF RANGE REFERENCE UNITS LAB L100.1000 4.4-11.0 K/mm3 Normal WBC 5.8 LAB L100.1200 4.6-6.2 M/mm3 Low RBC 4.26 LAB L100.1300 13.0-16.5 g/dl Low HGB 11.8 LAB L100.1400 40-54 % Low HCT 39.0 LAB L100.1500 80-94 fL Normal MCV 91.5 LAB L100.1600 27.0-32.0 pg Normal MCH 27.7 LAB L100.1700 32-36 g/gl Low MCHC 30.3 LAB L100.1810 11.6-14.6 % High RDW CV 16.7 LAB L100.1820 35.1-43.9 fl High RDW SD 54.9 LAB L100.1900 150-450 K/mm3 Normal PLT 176 LAB L100.2000 6.2-12.0 fl Normal MPV 11.1 Performed By: #### L100.0500 #### [facility] [address] [place], [address] TROPONIN-I Collected: 09/13/2018 Status: F Source: NAJMA 6:35 AM [facility] REPOSITORY Order Comment: 'TROP' Serial specimen #1, #2 or #3: 2 TYPE CODE TESTS RESULT OUT OF RANGE REFERENCE UNITS LAB L501.4010 <0.045 ng/mL High 0.135 TROPONIN-I Result Comment: TROPONIN-I EXPECTED VALUES <0.045 Negative 0.045 - 0.590 Consistent with Cardiac Damage > OR = 0.600 Critical Value Not every elevated troponin is indicative of LA. These values should be used with clinical judgement in examining the patient's clinical picture for diagnosis. To establish a diagnosis of LA versus myocardial injury, there must be a demonstrated rise and/or fall in the troponin values, in addition to ischemic symptoms, EKG changes, new regional wall motion abnormality, and/or angiographical evidence. PLEASE NOTE: REFERENCE RANGES EDITED 18 Performed By: #### L501.4010 #### [facility] [address] [place], [address] BNP,B-TYPE NATRIURETIC Collected: 09/13/2018 Status: F Source: NA[facility] PEPTIDE 6:35 AM [facility] REPOSITORY TYPE CODE TESTS RESULT OUT OF RANGE REFERENCE UNITS LAB L503.6620 0-100 pg/mL Normal B-TYPE 47.2 BRYAN PEP Performed By: #### L503.6620 #### [facility] [address] [place], [address] COMPREHENSIVE METABOLIC Collected: 09/13/2018 Status: F Source: NAJMA PROFIL 6:35 AM [facility] REPOSITORY TYPE CODE TESTS RESULT OUT OF RANGE REFERENCE UNITS LAB L501.0100 74-106 mg/dL Normal GLU 85 Result Comment: Please note revised GLUCOSE reference range effective 2017. LAB L501.1000 7-18 mg/dL High BUN 55 LAB L501.1100 0.70-1.30 mg/dL High alert CREAT,SERUM 12.90 Result Comment: Critical Result(s) Called at: 07:50:41 09/13/2018 by: Chiki Bradley RN (PCU). The validity of the calculated GFR AND GFRAA in patients over 70 years has not been determined. Clinical correlation is essential. LAB L501.1110 >60 mL/min Low EST GFR 5 Result Comment: Non- GFR Calc LAB L501.1115 >60 mL/min Low EST GFR - AA 6 Result Comment: GFR Calc LAB L501.1255 ml/min Normal Estimated CRCL 8.17 LAB L501.1300 10-20 RATIO Low BUN/CRE 4.3 LAB L501.1500 6.4-8.2 g/dL High T PROT 8.4 LAB L501.1800 3.2-5.0 g/dL Low ALB 3.0 LAB L501.1950 2.2-4.2 g/dL High GLOB 5.4 LAB L501.2000 0.9-2.4 RATIO Low A/G 0.6 LAB L501.2200 8.5-10. mg/dL Normal 1 CA 8.9 LAB L501.4100 15-37 U/L Low AST 9 LAB L501.4305 45-117 U/L Normal ALK P 63 LAB L501.4405 16-61 U/L Low ALT 8 LAB L501.4600 0.20-1. mg/dL Normal 00 T BILI 0.50 LAB L501.5300 136-145 mmol/L Normal NA 138 LAB L501.5600 3.5-5.1 mmol/L High K 5.4 LAB L501.5900 98-107 mmol/L Normal CL 98 LAB L501.6100 21.0-32 mmol/L Normal .0 CO2 26.0 LAB L501.6200 5-15 Normal GAP 14 Performed By: #### L500.4050, L500.4100, L501.9520 #### [facility] [address] [place], [place], [id number] LIPID PROFILE Collected: 09/13/2018 Status: F Source: [facility] 6:35 AM [facility] REPOSITORY TYPE CODE TESTS RESULT OUT OF RANGE REFERENCE UNITS LAB L501.4900 200 mg/dL Normal CHOL 149 Result Comment: <200 mg/dL Desirable 200-240 mg/dL Borderline >240 mg/dL High Risk LAB L501.5000 mg/dL Normal TRIG 114 Result Comment: The drugs N-Acetylcysteine and Metamizole may falsely depress this assay. Serum Triglycerides Reference Interval Normal <150 mg/dL Borderline high 150 - 199 mg/dL High 200 - 499 mg/dL Very High > or = 500 mg/dL LAB L501.6400 mg/dL Normal HDL 41 Result Comment: The drugs N-Acetylcysteine and Metamizole may falsely depress this assay. Reference Range HDL <40 mg/dL Low HDL Cholesterol HDL >or= 60 mg/dL High HDL Cholesterol LAB L501.6500 0-130 mg/dL Normal LDL 85 LAB L501.6600 5-40 mg/dL Normal VLDL 23 Performed By: #### L500.4050, L500.4100, L501.9520 #### [facility] [address] [place], [place], [id number] THYROID STIM HORMONE Collected: 09/13/2018 Status: F Source: [facility] (TSH) 6:35 AM [facility] REPOSITORY TYPE CODE TESTS RESULT OUT OF RANGE REFERENCE UNITS LAB L501.9520 0.358-3.74 uIU/mL High TSH 3.79 Performed By: #### L500.4050, L500.4100, L501.9520 #### [facility] [address] [place], [address] Observed: 09/13/2018 Status: F Source: [facility] INFLUENZA A+B (RAPID 6:00 AM [facility] MIGUE) REPOSITORY FLU A/B Rapid RESULTS CALLED TO JEFF 09/13/18 0645 Caroline Gordillo. REPORT READ BACK BY [facility]. Copy of report sent to Infection Control Printer [id number] 09/13/18 0645 LATESHA. Influenza Ag, Direct POSITIVE for the presence of INFLUENZA B Antigen only ORGANISM 1: INFLUENZAE B Performed By: #### M101.0101 #### [facility] [address] [place], [address] HISTORY AND PHYSICAL Observed: 09/13/2018 Status: F Source: [facility] EXAM 5:05 AM [facility] REPOSITORY [facility] Medical Records Department [address] [place] [address] History and Physical 09/13/18 0452 MR#: [id number] Acct: [id number] Name: ELIA WESTON Rep #: [id number] : 1980 38 From: Anuel Copeland MD PCP: Avinash Banda MD Status: REG ER Y Location: ED Problem List (1) HCAP (healthcare-associated pneumonia) Status: Acute (2) ESRD (end stage renal disease) Status: Chronic Comment: Due to hypertension, On hemodialysis, TTS, followed by Dr. Goncalves (3) Morbidly obese Status: Chronic (4) Chest pain Status: Acute History of Present Illness Date of Admission: 09/13/18 Chief Complaint: Chest pain The patient is a 38 year old male w/ h/o ESRD, HTN, morbid obesity and hematuria is admitted for chest pain. He has been to multiple [place] events with his buddhism. However, during his drive home in the late evening, he noted moderate chest pressure substernal. He felt as if there were bricks on his chest. He had similar symptoms in the past. Nothing improved or worsened his chest pain. Pain was not associated with any other symptoms. No diaphoresis. No palpitation. Past Medical History Past Medical History (Chronic Problems): Chronic Problems (Last Reviewed 09/13/18 @ 05:00 by Anuel Copeland MD) Sleep apnea (Chronic) Lightheadedness (Chronic) Chronic pelvic pain in male (Chronic) Pelvic mass (Chronic) Hematuria (Chronic) Hearing loss (Chronic) in both ears Anemia of chronic disorder (Chronic) History of bacterial endocarditis (Chronic) Hypertension (Chronic) ESRD (end stage renal disease) (Chronic) Due to hypertension, On hemodialysis, TTS, followed by Dr. Goncalves Morbidly obese (Chronic) Sleep apnea (Chronic) 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 due to renal insufficiency (Chronic) Medical History: Medical History (Last Reviewed 09/13/18 @ 05:00 by Anuel Copeland MD) Sleep apnea (Chronic) G47.30 History of blood clots (Acute) Z86.718 fistula developed a clot and had to be surgically removed Hearing loss (Chronic) H91.90 in both ears Allergies No Known Allergies Allergy (Verified 09/13/18 00:38) Home Medications: Ambulatory Orders Medication Instructions Recorded cinacalcet 60 mg tablet 60 mg PO TUTHSA 10/10/17 Surgical History: herniorrhaphy, - Smoking Status: Former smoker - *Family History Maternal History Items: No pertinent history Review of Systems Constitutional: Denies: Chills, Fever, Weight Change HEENT: Denies: Head Aches, Sinus Congestion, Sinus Drainage Cardiovascular: Reports: Chest Pain. Denies: Palpitations Respiratory: Reports: Cough, Pleuritic Pain, Shortness of Breath, Sputum production. Denies: Shortness of breath at rest Gastrointestinal: Denies: Abdominal Pain, Nausea, Vomiting Genitourinary: Denies: Dysuria Musculoskeletal: Denies: Joint Pain, Joint Tenderness Skin: Denies: Rash, Wounds Neurological: Denies: Numbness, Tingling, Focal weakness Psychiatric: Denies: Anxiety, Depression, Homicidal Ideations, Suicidal Ideations Hematologic/ Lymphatic: Denies: Easy Bruising, Easy Bleeding VTE Information - Inpt Only VTE Present on Admission: No VTE Mechan Device Prophylaxis: SCD's VTE Pharm Prophylaxis ordered?: Yes Patient Problems: Active and Suspected Problems (Last Reviewed 09/13/18 @ 05:00 by Anuel Copeland MD) HCAP (healthcare-associated pneumonia) (Acute) - Physical Exam General: Alert, Oriented x3, Cooperative HEENT: Atraumatic, PERRLA, EOMI, Normocephalic Neck: Supple, No JVD, Negative Carotid Bruits Lungs: Clear to auscultation, Normal air movement Cardiovascular: Regular rate, No murmurs Abdomen: Bowel Sounds Present, Soft, Non Tender Extremities: No edema, Capillary Refill Less than 3 Seconds Skin: No rashes, No breakdown Musculoskeletal: No Tenderness to Palpation of Joints or Extremities Neurological: Cranial nerves II-XII grossly intact Psych/Mental Status: Normal Affect, Appropriate Vital Signs Temp Pulse Resp BP Pulse Ox 98.1 F 102 H 18 115/72 98 09/13/18 00:38 09/13/18 04:29 09/13/18 04:29 09/13/18 03:01 09/13/18 03:01 Oxygen Delivery Method Room Air Weight: 127.913 kg Body Mass Index (BMI) 40.4 Laboratory Tests Past 24 Hrs WBC 6.1 RBC 3.90 L Hgb 11.1 L Hct 35.8 L MCV 91.8 MCH 28.5 MCHC 31.0 L RDW 16.6 H WBC RBC Hgb Hct MCV MCH MCHC RDW RDW Differential Plt Count MPV Immature Gran % (Auto) Assessment/Plan All Active Problems (Last Reviewed 09/13/18 @ 05:00 by Anuel Copeland MD) HCAP (healthcare-associated pneumonia) (Acute) Junctional tachycardia (Acute) Dyspnea (Acute) Clotted dialysis access (Acute) History of blood clots (Acute) Acute viral bronchitis (Acute) Chest pain, musculoskeletal (Acute) Chest pain (Acute) 38 year old male w/ h/o ESRD, HTN, morbid obesity and hematuria is admitted for chest pain. 1) Chest pain: Heart score 5 Trop 0.[address] elevation. Chest xray disclosed right middle lobe infiltrate. Will get serial trops. ECHO in AM. Given significant risk, will consult cards. 2) ESRD, HD MWF: Consult nephrology. 3) Hyperkalemia: No EKG changes. K 5.7 Will consult nephrology for possible HD if worsening. 4) HTN: Resume home meds. Code Visit OBSV E AND M: [id number] Initial observation care L3 09/13/18 0505 <Electronically signed by Anuel Copeland MD> Date Anuel Copeland MD Cosigner Signature: Date (if applicable) CC: Avinash Banda MD; Anuel Copeland MD Signed EMERGENCY DEPARTMENT Observed: 09/13/2018 Status: F Source: [facility] SUMMARY 4:19 AM [facility] REPOSITORY [facility] Medical Records Department [address] [place] [id number] Emergency Department Summary 09/13/18 0415 MR#: [id number] Acct: [id number] Name: ELIA WESTON Rep #: [id number] : 1980 38 From: Emre Harrison MD PCP: Avinash Banda MD Status: REG ER - ER Visit Summary Date of Service: 09/13/18 Chief Complaint: Chest pain History of Present Illness: The patient is a 38 M who presents with chest pain. It began about 2 hours before presentation. He describes it as a heaviness and feeling like bricks on my chest. It is currently 7 out of 10. He had prior similar symptoms. He has a history of pulmonary embolism which was related to travel. He reports shortness of breath. No nausea vomiting or diaphoresis. He states he was not feeling well last night and had difficulty sleeping. He did have an episode of near syncope earlier as well but this is since resolved. No history of coronary disease. Physical Examination: Afebrile heart rate 104 respiratory rate 23 pulse ox 98% Moist mucous membranes Heart regular rhythm tachycardia Lungs are clear And soft Extremities nontender Alert Test Results: EKG shows sinus rhythm at a rate of 106. Labs notable for potassium 5.7, BUN 55, creatinine 12.4. Troponin is 0.154. Lactic acid is normal. Blood cultures were sent. Chest x-ray shows a right middle lobe infiltrate. Emergency Department Course and Treatment: Initially patient was evaluated for acute LA with EKG chest x-ray laboratory studies including troponin. Chest x-ray showed a right middle lobe infiltrate. His troponin elevation may be related to his renal disease but I do feel he will need serial enzymes and further evaluation for this as well. He was given IV Zosyn and vancomycin for healthcare associated pneumonia. Patient will be admitted. His potassium is elevated but he does not have any acute EKG changes. He was treated with IV fluids here. Treatment Plan: [] Disposition: Admit Impression: Healthcare associated pneumonia Chest pain Hyperkalemia This note was generated with [employer] dictation software. It may contain incorrect words, spelling, and punctuation that were not noted in review of the chart prior to signing ED Disposition - Plan for ED Patient: Chief Complaint: Chest Pain Referrals: Avinash Banda MD [Primary Care Provider] - What to do if you have Problems For any increased pain, shortness of breath, bleeding, nausea or vomiting, chest pain, or any unexpected problems, contact your Primary Care Provider. Call [facility] ([phone]) or report to the closest Emergency Room. Call 911 if necessary. 09/13/18 0419 <Electronically signed by Emre Harrison MD> Date Emre Harrison MD Cosigner Signature (If Indicated): Date CC: Avinash Banda MD Observed: 09/13/2018 Status: F Source: NAJMA CULTURE, BLOOD (WB) 3:20 AM [facility] REPOSITORY AEROBIC BOTTLE GRAM STAIN: GRAM POSITIVE COCCI IN CLUSTERS PROBABLE MICROCOCCUS Possible skin contamination, further Identification and sensitivity will be performed only by physician's request. ANAEROBIC BOTTLE:No growth in 5 DAYS RESULTS CALLED TO IGOR/U 09/14/18 1038 Barb Joyce. ORGANISM 1: Gram Positive Cocci Amount Growth Growth Performed By: #### M200.1000, M100.636 #### [facility] [address] [place], [address] Observed: 09/13/2018 Status: F Source: NAJMA BC GPC ID 3:20 AM [facility] REPOSITORY BC GPC ID Staphylococcus sp. Not Detected Enterococcus sp. Not Detected Streptococcus spp. Not Detected Listeria spp Not Detected Zofia/vanB Not Detected mecA Not Detected NAAT METHOD Testing was performed using nucleic acid amplification Performed By: #### M200.1000, M100.636 #### [facility] [address] [place], [address] LACTIC ACID Collected: 09/13/2018 Status: F Source: NAJMA 3:15 AM [facility] REPOSITORY Order Comment: Yes/No query for Sepsis Lactate Rule Y TYPE CODE TESTS RESULT OUT OF RANGE REFERENCE UNITS LAB L503.6005 0.4-2.0 mmol/L Normal LACTIC ACID 1.0 Performed By: #### L503.6005 #### [facility] [address] [place], [address] BASIC METABOLIC Collected: 09/13/2018 Status: F Source: NAJMA PROFILE (BMP) 2:20 AM [facility] REPOSITORY Order Comment: REDRAW. PREVIOUS SPECIMEN REJECTED DUE TO Hemolyzed. 09/13/18 0152 Kristine Agustin. 'TROP' Serial specimen #1, #2, #3, or #4: 1 TYPE CODE TESTS RESULT OUT OF RANGE REFERENCE UNITS LAB L501.0100 74-106 mg/dL Normal GLU 92 Result Comment: Please note revised GLUCOSE reference range effective 2017. LAB L501.1000 7-18 mg/dL High BUN 55 LAB L501.1100 0.70-1.30 mg/dL High alert CREAT,SERUM 12.40 Result Comment: Critical Result(s) Called at: 02:45:50 09/13/2018 by: KRISTINE AGUSTIN TO DAYAN POPE The validity of the calculated GFR AND GFRAA in patients over 70 years has not been determined. Clinical correlation is essential. LAB L501.1110 >60 mL/min Low EST GFR 5 Result Comment: Non- GFR Calc LAB L501.1115 >60 mL/min Low EST GFR - AA 6 Result Comment: GFR Calc LAB L501.1255 ml/min Normal Estimated CRCL 8.50 LAB L501.1300 10-20 RATIO Low BUN/CRE 4.4 LAB L501.2200 8.5-10. mg/dL Normal 1 CA 8.6 LAB L501.5300 136-145 mmol/L Normal NA 136 LAB L501.5600 3.5-5.1 mmol/L High K 5.7 LAB L501.5900 98-107 mmol/L Normal CL 99 LAB L501.6100 21.0-32 mmol/L Normal .0 CO2 26.0 LAB L501.6200 5-15 Normal GAP 11 Performed By: #### L500.2500, L501.4010 #### [facility] [address] [place], [place], [address] TROPONIN-I Collected: 09/13/2018 Status: F Source: [facility] 2:20 AM [facility] REPOSITORY Order Comment: REDRAW. PREVIOUS SPECIMEN REJECTED DUE TO Hemolyzed. 09/13/18 0152 [facility]. 'TROP' Serial specimen #1, #2, #3, or #4: 1 TYPE CODE TESTS RESULT OUT OF RANGE REFERENCE UNITS LAB L501.4010 <0.045 ng/mL High 0.154 TROPONIN-I Result Comment: TROPONIN-I EXPECTED VALUES <0.045 Negative 0.045 - 0.590 Consistent with Cardiac Damage > OR = 0.600 Critical Value Not every elevated troponin is indicative of LA. These values should be used with clinical judgement in examining the patient's clinical picture for diagnosis. To establish a diagnosis of LA versus myocardial injury, there must be a demonstrated rise and/or fall in the troponin values, in addition to ischemic symptoms, EKG changes, new regional wall motion abnormality, and/or angiographical evidence. PLEASE NOTE: REFERENCE RANGES EDITED 18 Performed By: #### L500.2500, L501.4010 #### [facility] [address] [place], [place], [address] CBC W/DIFF, AUTOMATED Collected: 09/13/2018 Status: F Source: [facility] TYPE CODE TESTS RESULT OUT OF RANGE REFERENCE UNITS LAB L100.1000 4.4-11.0 K/mm3 Normal WBC 6.1 LAB L100.1200 4.6-6.2 M/mm3 Low RBC 3.90 LAB L100.1300 13.0-16.5 g/dl Low HGB 11.1 LAB L100.1400 40-54 % Low HCT 35.8 LAB L100.1500 80-94 fL Normal MCV 91.8 LAB L100.1600 27.0-32.0 pg Normal MCH 28.5 LAB L100.1700 32-36 g/gl Low MCHC 31.0 LAB L100.1810 11.6-14.6 % High RDW CV 16.6 LAB L100.1820 35.1-43.9 fl High RDW SD 54.5 LAB L100.1900 150-450 K/mm3 Normal PLT 172 LAB L100.2000 6.2-12.0 fl Normal MPV 11.3 LAB L100.2100 47-70 % Normal NEUT% 55.6 LAB L100.2200 19-41 % Normal LY% 25.4 LAB L100.2300 0-10 % High MONO% 16.2 LAB L100.2400 0-5 % Normal EO% 2.3 LAB L100.2500 0-1 % Normal BASO% 0.3 LAB L100.2550 0.0-0.9 % Normal IM GRAN % 0.200 Result Comment: IG% - Immature Granulocytes (promyelocytes, myelocytes and metamyelocytes) > 1% indicates that a LEFT SHIFT is Present. LAB L100.2620 2.0-7.7 X10 3/uL Normal Absolute Neut 3.4 LAB L100.2720 0.83-4.51 X10 3/ul Normal Absolute Lymph 1.54 Performed By: #### L100.0100 #### [facility] [address] [place], [place], [address] D-DIMER QUANTITATIVE Collected: 09/13/2018 Status: F Source: NAJMA (DVT/PE) 1:20 AM [facility] REPOSITORY TYPE CODE TESTS RESULT OUT OF RANGE REFERENCE UNITS LAB L300.8000 0.27-0.49 FEU/ug/m High alert D-DIMER 1.44 QUANT Result Comment: CRITICAL VALUE VERIFIED. CALLED TO RACHELE MILESE 09/13/18 0646 Kristine Agustin. RESULTS READ BACK BY SAME . D-Dimer ELEVATED (>0.49): Additional studies and clinical assessments are indicated to conclude diagnosis of: Deep Vein Thrombosis (DVT) or Pulmonary Embolism (PE) Performed By: #### L300.8000 #### [facility] [address] [place], [address] ERYTHROCYTE SED RATE Collected: 09/13/2018 Status: F Source: [place] 1:20 AM [facility] REPOSITORY TYPE CODE TESTS RESULT OUT OF RANGE REFERENCE UNITS LAB L102.0000 0-15 mm/hr High SED RATE 92 Performed By: #### L501.6710, L101.9900 #### [facility] [address] [place], [address] CHEST PA AND LATERAL Observed: 09/13/2018 Status: F Source: [place] 1:14 AM [facility] REPOSITORY [facility] Imaging Services [address] [place] [place] [address] Chest PA and Lateral MR#: [id number] Acct: [id number] Name: ELIA WESTON Rep #: [id number] : 1980 M 38 From: Qasim Aleman MD PCP: Avinash Banda MD Status: REG ER Study: Chest PA and Lateral Date of Exam: 09/13/18 Exam# [id number] Ordering Dr: Emre Harrison MD HISTORY: PT STATED MID CHEST PAIN TODAY SOB FATIGUENO HX OF HEART LUNG DISEASE EXAM: XR Chest 2 Views: COMPARISON: 05/15/2018 FINDINGS: EKG leads in place. There is apparent right middle lobe infiltrate, not seen previously. Clear left lung. Normal heart size. No vascular congestion or pleural effusion. Thoracic dextroscoliosis, unchanged. RAD/Chest PA and Lateral IMPRESSION: 1. Right middle lobe infiltrate is suggested compatible with pneumonia. 2. Thoracic dextroscoliosis, unchanged. at 0219 Reported and signed by: Qasim Aleman MD Electronically Signed: Qasim Aleman, at 2:17 EST Tel , Service support , CC: Avinash Banda MD; Emre Harrison MD Brick Chimney Supervisor: Signed PROGRESS Observed: 09/12/2018 Status: COMPLETED Source: [place] 4:11 PM [facility] OTHER [place] REPOSITORY HNO ID: [id number] Author: Silviano Barr Service: (none) Author Type: Physician Type: Progress Notes Filed: 09/12/2018 4:14 PM Note Text: This is a patient who I last saw on the [place] office and we saw him there was schedule him for his upper extremity venograms. Somehow this got confused and did not get ordered appropriately or he just didn't show up as I do recall that he was on my schedule for a venogram down in interventional radiology and he did not show. This is unlike this patient is she seems relatively reliable and really wants to get his catheter out. At this point we are again go through discussion of the fact that its nicely has vein mapping but the problem for him in the past has been central venous occlusion and if he indeed has bilateral central venous occlusion we may not be able to use upper extremities for access. He is currently dialyzing through a tunneled femoral catheter. At this point we once again go to the process of explaining venography and what we're going to do and I tell him that we are going to set this up for him when I'm down in interventional radiology next week and then at that point I will discuss with him what I think are his options for new upper extremity access. I caution him that if we do not get a good idea was going on with his central venous obstruction then we could well be in the situation where we actually give him a very swollen arm based on the fact that we would be putting a fistula in proximal to a known obstruction. We are going to plan on venography for the patient once that is done we will follow-up with him at the time of the venogram to discuss his surgery.I spent 15 minutes in the visit, with more than 50% of the total qzfs-rf-pzyc time of the visit in counseling / coordination of care. CNOV Observed: 09/10/2018 Status: COMPLETED Source: [place] 1:00 PM [facility] Office Visit (AGVASACC) ELIA WESTON ([id number]) 1980 M Date Time Provider Department 09/10/18 1:00 PM SILVIANO BARR [facility] During your visit today, we recorded the following information about you: Pulse Respiration Blood pressure Weight 78/minute 18/minute 124/68 128.4 kg Height 1.778 m Silviano Barr MD 09/12/2018 4:14 PM Signed This is a patient who I last saw on the [place] office and we saw him there was schedule him for his upper extremity venograms. Somehow this got confused and did not get ordered appropriately or he just didn't show up as I do recall that he was on my schedule for a venogram down in interventional radiology and he did not show. This is unlike this patient is she seems relatively reliable and really wants to get his catheter out. At this point we are again go through discussion of the fact that its nicely has vein mapping but the problem for him in the past has been central venous occlusion and if he indeed has bilateral central venous occlusion we may not be able to use upper extremities for access. He is currently dialyzing through a tunneled femoral catheter. At this point we once again go to the process of explaining venography and what we're going to do and I tell him that we are going to set this up for him when I'm down in interventional radiology next week and then at that point I will discuss with him what I think are his options for new upper extremity access. I caution him that if we do not get a good idea was going on with his central venous obstruction then we could well be in the situation where we actually give him a very swollen arm based on the fact that we would be putting a fistula in proximal to a known obstruction. We are going to plan on venography for the patient once that is done we will follow-up with him at the time of the venogram to discuss his surgery.I spent 15 minutes in the visit, with more than 50% of the total hpvt-ab-zcax time of the visit in counseling / coordination of care. Referring Provider: AVINASH BANDA [[id number]] Allergies As of Date: 09/10/2018 (No Known Allergies) Date Reviewed: 09/10/2018 Reviewed by: Princess Howard LPN - Fully Assessed Reason for Visit: Chronic Kidney Disease [4078] Cmt: [facility]. Vein mapping done 09/09/18 Reason For Visit History Recorded Visit Diagnosis:ESRD (end stage renal disease) on dialysis [N18.6, Z99.2] Order(s):IR VENOGRAM EXTREMITY BILAT [0423919] Order #: [id number] Prescriptions as of 09/10/2018 Sig: CARVEDILOL 3.125 MG TABLET Take 3.125 mg by mouth twice * SENSIPAR 60 MG TABLET Take 1.5 tablets by mouth onc* SEVELAMER CARBONATE 800 MG TA* Take 2 tablets by mouth three* Patient not taking: Reported on 07/10/2018 WALKER 1 Each once daily. M25.561, E* Patient not taking: Reported on 09/10/2018 Problem List As Of Date 09/10/2018 Noted Resolved ESRD (end stage renal disease) on dialysis [N18*INVALID FOR* More... HTN (hypertension) [I10] INVALID FOR* More... Morbid obesity (HCC) [E66.01] INVALID FOR* Epigastric pain [R10.13] INVALID FOR* Mechanical complication of other vascular devic*INVALID FOR* Right knee pain [M25.561] INVALID FOR* BMI 45.0-49.9, adult (HCC) [Z68.42] INVALID FOR* Tendinitis of left shoulder [M75.82] INVALID FOR* NO SHOW [609395] INVALID FOR* Mass of left thigh [R22.42] INVALID FOR* Thigh pain [M79.659] INVALID FOR* Hematuria [R31.9] INVALID FOR* Dialysis patient (HCC) [Z99.2] INVALID FOR* YEIMY (obstructive sleep apnea) [G47.33] INVALID FOR* More... Abdominal or pelvic swelling, mass, or lump, ri*INVALID FOR* More... Secondary hyperparathyroidism (HCC) [N25.81] INVALID FOR* More... Renal osteodystrophy [N25.0] INVALID FOR* More... Hyperphosphatemia [E83.39] INVALID FOR* Groin pain [R10.30] INVALID FOR* More... Pulmonary embolism without acute cor pulmonale *INVALID FOR* Sprain of medial collateral ligament of right k*INVALID FOR* Letter Text Encounter Status:Closed by SILVIANO BARR MD on 09/12/18 VEIN MAPPING FOR Observed: 09/09/2018 Status: F Source: [facility] AVF PLACEMENT 1:35 PM HEALTH SYSTEM REPOSITORY Performed at [facility] APPROVED BY: Deng Smith MD EXAM TITLE: VEIN MAPPING OF THE RIGHT AND LEFT UPPER EXTREMITY WITH DOPPLER AND COLOR DOPPLER DATE: 09/09/2018 13:06 COMPARISON: None. CLINICAL INDICATION/HISTORY: Patient has renal failure and is undergoing evaluation for formation of dialysis access fistula. The patient has had prior dialysis access fistulas within both the right and left upper extremities. FINDINGS: Ultrasound of the right and left internal jugular vein, subclavian, axillary, basilic, brachial and cephalic veins were performed. In addition the largest vein along the radial and ulnar aspect of the forearms were evaluated. The right and left brachial, radial and ulnar arteries were imaged. There is intraluminal acting material within a tubular structure along the radial aspect of the left forearm. 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 There is also intr aluminal echogenic material throughout the right cephalic vein. This corresponds to a failed fistula in the right upper arm. The remainder of the venous structures show no intraluminal echogenic mater ial. The remainder of the venous structures demonstrated normal compressibility throughout their course. Doppler analysis shows spontaneous flow with normal phasicity at all levels. Vessel size and d epths are as indicated on the vein mapping worksheet. The right and left brachial, radial and ulnar arteries all demonstrate normal arterial Doppler waveforms. Vessel size is indicated on the vein mapping worksheet. IMPRESSION: 1. Thrombosis throughout the failed fistulas, one along the radial aspect of the left forearm and the other which utilized the right cephalic vein. 2. There is no other evidence of deep venous thrombosis within either the right or left upper extremity. Vessel size and depths are as indicated on the vein mapping worksheet. INTERNAL MEDICINE Observed: 08/13/2018 Status: F Source: [place] OFFICE VISIT 10:17 AM [facility] [address] [place], [place] [address] OFFICE VISIT Date of Service: 08/12/18 MR#: [id number] Acct: [id number] Name: ELIA WESTON Rep #: [id number] : 1980 Provider: Shahram Major NP Age/Sex: 38/M [place] [facility] [place] [place]: Signed Intake Vital Signs08/12/18 Height 5 ft 10 in 08/12/18 Weight: 293 lb 08/12/18 Body Mass Index (BMI) 42.0 08/12/18 Blood Pressure 111/64 Intake Visit Reasons: FU ED- SIDE PAIN Chief Complaint: Lt side back pain Is patient in pain?: Yes (Lt side back ) Pain scale (1-10): 8 Allergies No Known Allergies Allergy (Verified 08/12/18 13:51) Medications cinacalcet 60 mg tablet 60 mg PO TUTHSA 10/10/17 [History Confirmed 08/12/18] Carvedilol [Coreg (Beta Yossi)] 1 tab PO BID 01/08/18 [History Confirmed 08/12/18] Ferric Citrate [Auryxia] 3 tab PO TIDCM 05/15/18 [History Confirmed 08/12/18] oxycodone-acetaminophen 5 mg-325 mg tablet 1 tab PO BID PRN #14 tab 08/12/18 [Rx Confirmed 08/12/18] PFSH Medical History Sleep apnea (Chronic) History of blood clots (Acute) Hearing loss (Chronic) Social History Smoking Status: Never smoker alcohol intake: never substance use type: does not use what type of physical activity do you participate in: none HPI HPI Chief Complaint: Lt side back pain Details: ELIA WESTON, is a 38 M who presents to the office today for acute visit for right lower back pain. The patient has past medical history as listed above. The patient presents today with complaints of right lower back pain that has been going on since Friday. The patient patient states that the pain was so bad yesterday he was seen in [facility] emergency department. Per ER report CT flank showed no acute abnormality. No hydronephrosis . No renal stone. There are renal cysts. But no acute abnormality explaining his pain. CTA chest was nondiagnostic. There was no obvious PE but it could not be ruled out. Venous study of the patient's leg shows no DVT. White count is 5. Hemoglobin 11.7. No bands. Electrolytes unremarkable gap of 10. BUN 41 creatinine 10. D-dimer was elevated at 1.28. In the emergency department the patient was requesting pain medications. He was treated with morphine and discharged home as it is felt unlikely that he had a pulmonary embolism. Patient states today his pain is somewhat improved he describes it as sharp and aching constantly 6-7 out of 10 at rest and at worst 9 out of 10, movement does exacerbate the pain. He does note that the pain is reproducible and present when pressing on a area of his right lower back. The patient states he tried to use Aleve last night without any positive effects. He denies any trauma or activity that initiated this pain. He denies any other aggravating or alleviating factors. The patient otherwise denies any fever, chills, nausea, vomiting, shortness of breath, chest pain or pressure, palpitations, orthopnea, lower extremity edema, syncope or presyncopal episodes. ROS Const Constitutional: No chills, fatigue, fever(s), frequent falls, malaise, weakness, sleep problems or change in appetite Eyes Eyes: No blurry vision, change in vision, double vision, discharge or visual disturbances ENT ENT: No abnormal hearing, ear pain, ear pressure, tinnitus or dizziness/vertigo Resp Respiratory: No cough, shortness of breath or wheezing Cardio Cardiology: No chest pain at rest, chest pain with exertion, shortness of breath, dyspnea on exertion, generalized swelling, irregular heart rhythm, lightheadedness, orthopnea, fast heart rate or palpitations Gastro GI: No abdominal pain, change in bowel habits, constipation, diarrhea, nausea/dyspepsia or vomiting Musc Musculoskeletal: Positive for back pain (Lt side ); no joint pain, joint swelling, limited range of motion, numbness, tingling or muscle weakness Skin Skin: No change in skin color, itching, rash or wounds Breast Breast: No breast lump or breast pain Neuro Neurology: No frequent falls, weakness, visual disturbances, abnormal hearing, numbness, tingling, unsteady gait/balance, dizziness, loss of vision or memory loss Psych Psychiatric: No change in appetite, No memory loss, No anxiety, No depression, No Thoughts of harming yourself/Others Endo Endocrine: No fatigue, heat intolerance, increased thirst/drinking, increased hunger or increased urination Aller/Imm Allergy/Immunologic: No wheezing, itchy eyes or seasonal allergy symptoms Lucas/Lymp Hematologic/Lymphatic: No easy bleeding, easy bruising or enlarged lymph nodes Exam Const General: cooperative, comfortable, no acute distress Nutritional Appearance: well nourished, obese Orientation: alert, oriented x3 Limitations: mental status not altered Eyes General: appearance normal, both eyes and all related structures Resp Effort AND Inspection: normal respiratory effort, able to speak in complete sentences, normal respiratory pattern, symmetric chest movement, no audible wheezes, no cough Auscultation: Bilateral: Clear to Auscultation Cardio Palpation: normal PMI Rate: regular rate Heart Sounds: S1 normal, S2 normal, normal S1 and S2, no click, no gallops, no murmurs, no rubs Musc Musculoskeletal: No joint tenderness, decreased ROM or muscle weakness Thoracic/Lumbar Spine: pain with thoraco-lumbar ROM, thoraco- lumbar ROM limited Other: Tenderness over right lower lumbar quadrant with deep palpation, some wincing/guarding when palpating this area on exam Skin General: no rashes or lesions noted, elasticity normal, turgor normal Lesions: no lesions Rashes: no rashes Neuro General: alert, awake, oriented x3, CN's II-XI intact bilaterally Speech: speech normal Gait: normal gait Motor: muscle tone normal throughout Extrem General: normal to inspection, normal gait, no edema, no pedal edema Psych Appearance: grossly normal Mental Status: mental status grossly normal Affect: normal affect Attitude: cooperative Thought Process: normal Assessment AND Plan Problems 1. Acute right-sided low back pain M54.5 2. ESRD (end stage renal disease) N18.6 Due to hypertension, On hemodialysis, TTS, followed by Dr. Sacha Rinaldi Overall the patient's acute right-sided low back pain has been gradually improving though he is still having a significant amount of pain. No obvious injury. ER workup as described above. Patient encouraged not to take NSAIDs due to end-stage renal disease. Patient states he is unable to tolerate tramadol due to the nausea that it caused him. Patient given limited amount of Percocet to take as needed for pain. Patient educated on medication side effects. OARRS was verified and demonstrates no red flags that would indicate abuse or diversion. Did discuss with patient that since the pain is reproducible that is most likely felt to be musculoskeletal. Patient educated on signs and symptoms that would warrant emergency medical care such as shortness of breath, fast heart rate, or chest pain which may be indicative of a pulmonary embolus. No driving or operating heavy machinery while on on narcotic analgesia. Patient to call office if no improvement in 1 week. This note was generated with Puridify dictation software. It may contain incorrect words, spelling, and punctuation that were not noted in checking the note before signing. Medications New: Plan Detail Follow Up 2 Weeks Coding Level of Care Code Off vis,est,level 3 Diagnoses Acute right-sided low back pain M54.5 ESRD (end stage renal disease) N18.6 08/13/18 1017 <Electronically signed by Shahram RUSSELL> Date Shahram RUSSELL Cosigner Signature: Date (if applicable) CC: DISCHARGE INSTRUCTION Observed: 08/12/2018 Status: F Source: [place] 12:00 AM [facility] Medical Records Department [address] [place] [address] Discharge Instruction 08/11/18 2257 MR#: [id number] Acct: [id number] Name: ELIA WESTON Rep #: [id number] : 1980 38 From: Harpreet Barr MD PCP: Avinash Banda MD Status: DEP ER ED Disposition - Plan for ED Patient: Disposition: Home or Assisted Living Chief Complaint: Flank Pain Instructions: ED Flank Pain Uncertain Cause Referrals: Avinash Banda MD [Primary Care Provider] - 1-2 Days if not improving Additional Instructions: Call follow-up with your doctor tomorrow. What to do if you have Problems For any increased pain, shortness of breath, bleeding, nausea or vomiting, chest pain, or any unexpected problems, contact your Primary Care Provider. Call [facility] ([phone]) or report to the closest Emergency Room. Call 911 if necessary. 08/12/18 0000 <Electronically signed by Harpreet Barr MD> Date Harpreet Barr MD Cosigner Signature (If Indicated): Date CC: Avinash Banda MD EMERGENCY DEPARTMENT Observed: 08/12/2018 Status: F Source: [place] SUMMARY 12:00 AM [facility] Medical Records Department [address] [place] [address] Emergency Department Summary 08/11/18 1520 MR#: [id number] Acct: [id number] Name: ELIA WESTON Rep #: [id number] : 1980 38 From: Harpreet Barr MD PCP: Avinash Banda MD Status: DEP ER - ER Visit Summary Date of Service: 08/11/18 Chief Complaint: Right flank pain History of Present Illness: The patient is a 38 M history of hypertension end-stage renal disease and gets dialysis patient patient was dialyzed today and is typically dialyzed Friday and Friday. States that on Friday evening had sudden onset of right flank pain. Worse with movement. Denies any falls or trauma. No dysuria. He has recently been worked up for gross hematuria he said he had a cystoscopy done at [facility] within the last 2 weeks which was negative. He said it on a specific cause for the bleeding. He is on no blood thinners. He denies getting heparin with his dialysis. He has had a PE before. He denies any chest pain or shortness of breath though. He denies any leg pain or swelling. Physical Examination: Well-appearing young male. Vital signs are stable. He is afebrile. His pulse ox is 95% on room air no signs of hypoxia. H EENT exam unremarkable. Neck nontender. No JVD. Lungs clear to auscultation bilaterally. Heart regular rhythm no murmur. Chest wall nontender. Abdomen is obese but soft and nontender. Normal bowel sounds no peritoneal signs. Patient is moving all 4 extremities. Calves are nontender without edema nor cords. Back exam he has right CVA tenderness. About at the lower rib level. There is no ecchymosis or bruising or signs of trauma. Neurologically is awake alert with no focal motor deficits. Test Results: CT flank shows no acute abnormality. No hydronephrosis . No renal stone. There are renal cysts. But no acute abnormality explaining his pain. CTA chest was nondiagnostic. There was no obvious PE but it could not be ruled out. I did discuss this with the radiologist. Venous study of the patient's leg shows no DVT. White count is 5. Hemoglobin 11.7. No bands. Electrolytes unremarkable gap of 10. BUN 41 creatinine 10. D-dimer was elevated at 1.28. Emergency Department Course and Treatment: Acute right flank pain treated with morphine and Zofran. Patient continually and repeatedly asked for additional pain medication. Clinically I do not feel this is a PE. On repeat examination he has exquisite and out of proportion to exam musculoskeletal right lower rib and back pain. Patient wanted to be admitted for further evaluation. When I looked through his old records he had a similar presentation and a negative VQ scan done in the past. Treatment Plan: I have his primary care physician on page. Patient will be discharged home. With outpatient follow-up. Disposition: Discharge Impression: Acute right flank pain of uncertain etiology This note was generated with Puridify dictation software. It may contain incorrect words, spelling, and punctuation that were not noted in review of the chart prior to signing ED Disposition - Plan for ED Patient: Chief Complaint: Flank Pain Referrals: Avinash Banda MD [Primary Care Provider] - What to do if you have Problems For any increased pain, shortness of breath, bleeding, nausea or vomiting, chest pain, or any unexpected problems, contact your Primary Care Provider. Call [facility] ([phone]) or report to the closest Emergency Room. Call 911 if necessary. 08/12/18 0000 <Electronically signed by Harpreet Barr MD> Date Harpreet Barr MD Cosigner Signature (If Indicated): Date CC: Avinash Banda MD VENOUS DUPLEX Observed: 08/11/2018 Status: F Source: [place] IMAG/[place] EXTREM 6:31 PM [facility] REPOSITORY [facility] Imaging Services [address] [place] [address] Venous Duplex Imag/[place] Extrem MR#: [id number] Acct: [id number] Name: ELIA WESTON Rep #: [id number] : 1980 M 38 From: Harpreet Brian MD PCP: Avinash Banda MD Status: REG ER Study: Venous Duplex Imag/[place] Extrem Date of Exam: 08/11/18 Exam# [id number] Ordering Dr: Harpreet Barr MD STUDY: VENOUS DOPPLER ULTRASOUND - BILATERAL LOWER EXTREMITIES REASON FOR EXAM: Male, 38 years old. Elevated d-dimer TECHNIQUE: Ultrasound evaluation of the deep vein system to include mcginnis-scale imaging and compression was performed. Mcginnis-scale imaging and Doppler sonographic evaluation, including duplex spectral analysis and qualitative color flow sonography, was performed. COMPARISON: None. FINDINGS: RIGHT LEG Common Femoral Vein: Normal compression, spontaneity and augmentation. Normal color Doppler. Common Femoral Vein/Greater Saphenous Junction: Normal compression, spontaneity and augmentation. Normal color Doppler. Deep Femoral Vein: Normal compression, spontaneity and augmentation. Normal color Doppler. Femoral Proximal: Normal compression, spontaneity and augmentation. Normal color Doppler. Femoral Middle: Normal compression, spontaneity and augmentation. Normal color Doppler. Femoral Distal: Normal compression, spontaneity and augmentation. Normal color Doppler. Popliteal Vein: Normal compression, spontaneity and augmentation. Normal color Doppler. Posterior Tibial Vein: Normal compression, spontaneity and augmentation. Normal color Doppler. Peroneal Vein: Normal compression, spontaneity and augmentation. Normal color Doppler. LEFT LEG Common Femoral Vein: Normal compression, spontaneity and augmentation. Normal color Doppler. Common Femoral Vein/Greater Saphenous Junction: Normal compression, spontaneity and augmentation. Normal color Doppler. Deep Femoral Vein: Normal compression, spontaneity and augmentation. Normal color Doppler. Femoral Proximal: Normal compression, spontaneity and augmentation. Normal color Doppler. Femoral Middle: Normal compression, spontaneity and augmentation. Normal color Doppler. Femoral Distal: Normal compression, spontaneity and augmentation. Normal color Doppler. Popliteal Vein: Normal compression, spontaneity and augmentation. Normal color Doppler. Posterior Tibial Vein: Normal compression, spontaneity and augmentation. Normal color Doppler. Peroneal Vein: Normal compression, spontaneity and augmentation. Normal color Doppler. US/Venous Duplex Imag/[place] Extrem IMPRESSION: Normal venous Doppler ultrasound of the bilateral lower extremities. Electronically Signed: Harpreet Brian MD at 19:28 EST , Service support , CC: Avinash Banda MD; Harpreet Barr MD Brick Chimney Supervisor: Signed ABDOMEN/PELVIS WITH Observed: 08/11/2018 Status: F Source: CRUMP CONTRAST 4:36 PM [facility] REPOSITORY [facility] Imaging Services [address] [place] [id number] Abdomen/Pelvis WITH Contrast MR#: [id number] Acct: [id number] Name: ELIA WESTON Rep #: [id number] : 1980 M 38 From: Harpreet Brian MD PCP: Avinash Banda MD Status: REG ER Study: Abdomen/Pelvis WITH Contrast Date of Exam: 08/11/18 Exam# [id number] Ordering Dr: Harpreet Barr MD STUDY: CT ABDOMEN AND PELVIS WITH CONTRAST REASON FOR EXAM: Male, 38 years old. Right flank pain RADIATION DOSAGE (If Supplied By Facility): CTDIvol = ( 35.66 ) mGy, DLP = ( 4170.79 ) mGycm TECHNIQUE: Transaxial images were obtained from the dome of the diaphragm to the symphysis pubis without oral contrast. 100ML ml of Isovue 370 contrast was administered. Sagittal and coronal images were reconstructed. Individualized dose optimization techniques were used for this CT. COMPARISON: None. FINDINGS: There is minor atelectasis within the dependent portion of the lungs.. The visualized portions of the heart are within normal limits. Liver is enlarged but homogeneous attenuation without mass or bile duct dilatation. Normal gallbladder and extrahepatic biliary system. Borderline splenomegaly. Normal pancreas. Normal bilateral adrenal glands. Kidney are within lower limits of normal in size. No evidence for renal obstruction or ureteral calculus. There are multiple tiny cysts in each kidney. Normal visualized stomach. Mild nonspecific ileus with diffuse fecal retention in the colon.. The appendix is visualized and appears normal. Normal abdominal aorta. Normal inferior vena cava. Normal retroperitoneum. Normal urinary bladder. There is a lesion involving the right superior pubis demonstrating both lytic changes as well as extensive calcifications extending into the soft tissues in the space of Retzius, the proximal hamstring muscles on the right and medial aspect of the right thigh.. There are numerous enhancing venous collaterals seen within the anterior abdominal and pelvic wall . There is a focal lytic lesion involving the spinous process of L4. There are also lucent erosive changes involving the sacroiliac joints bilaterally Findings are relatively stable since prior exam CT/Abdomen/Pelvis WITH Contrast IMPRESSION: No acute abnormalities. No evidence for hydronephrosis or ureteral calculus Both kidneys are within lower limits of normal size and demonstrates multiple small cysts Other findings as above Electronically Signed: Harpreet Brian MD at 17:56 EST , Service support , CC: Avinash Banda MD; Harpreet Barr MD Brick Chimney Supervisor: Signed CTA CHEST W/WO Observed: 08/11/2018 Status: F Source: NAJMA CONTRAST 4:33 PM [facility] REPOSITORY [facility] Imaging Services [place] [address] CTA Chest W/WO Contrast MR#: [id number] Acct: [id number] Name: ELIA WESTON Rep #: [id number] : 1980 M 38 From: Harpreet Brian MD PCP: Avinash Banda MD Status: REG ER Study: CTA Chest W/WO Contrast Date of Exam: 08/11/18 Exam# [id number] Ordering Dr: Harpreet Barr MD STUDY: CTA CHEST REASON FOR EXAM: Male, 38 years old. Chest pain and right flank pain RADIATION DOSAGE (If Supplied By Facility): CTDIvol = ( ) mGy, DLP = ( ) mGycm TECHNIQUE: The examination was performed with the intravenous administration of 100ML ml of Isovue 370 contrast material. Post-processing of the angiographic images was performed, with multiplanar reformation and 3D reconstruction. Individualized dose optimization techniques were used for this CT. COMPARISON: None. FINDINGS: Examination of the pulmonary arteries is extremely limited due to suboptimal timing of the bolus as well as contrast traversing numerous superficial venous collaterals consistent with proximal venous stenosis or occlusion.. . There is suboptimal contrast opacification of the pulmonary arteries which also demonstrate extensive linear artifact Mild atherosclerotic changes of the aorta without evidence for aneurysm There is no demonstrated aortic dissection. Heart is upper normal size. There is severe calcification of mitral annulus Normal mediastinum. Normal hilar regions. Normal visualized trachea and bronchi. The lungs are well expanded. There is chronic interstitial thickening most severe in the lower lobes Tiny subcentimeter nodule in the right upper lobe Normal pleura. Dorsal spine demonstrates scoliosis and degenerative changes Normal visualized upper abdomen. CT/CTA Chest W/WO Contrast IMPRESSION: Mild chronic interstitial changes most severe in the lower lobes Nondiagnostic study of the pulmonary arteries If strong clinical suspicion for pulmonary embolus VQ scan and Doppler study of the deep venous system of the lower extremities recommended There are findings consistent with severe venous stenosis or occlusion resulting in extensive superficial venous collateral opacification Electronically Signed: Harpreet Brian MD at 17:40 EST , Service support , CC: Avinash Banda MD; Harpreet Barr MD Brick Chimney Supervisor: Signed BASIC METABOLIC Collected: 08/11/2018 Status: F Source: NAJMA PROFILE (BMP) 3:40 PM [facility] REPOSITORY TYPE CODE TESTS RESULT OUT OF RANGE REFERENCE UNITS LAB L501.0100 74-106 mg/dL Normal GLU 100 Result Comment: Fasting Glucose result from 100 to 125 mg/dL suggests IMPAIRED HOMEOSTASIS per A.D.A. criteria. Please note revised GLUCOSE reference range effective 2017. LAB L501.1000 7-18 mg/dL High BUN 41 LAB L501.1100 0.70-1.30 mg/dL High alert CREAT,SERUM 10.40 Result Comment: Critical Result(s) Called at: 16:10:01 08/11/2018 by: DANNY DE LA CRUZ TO GAGAN RAMOS IN ED The validity of the calculated GFR AND GFRAA in patients over 70 years has not been determined. Clinical correlation is essential. LAB L501.1110 >60 mL/min Low EST GFR 6 Result Comment: Non- GFR Calc LAB L501.1115 >60 mL/min Low EST GFR - AA 7 Result Comment: GFR Calc LAB L501.1255 ml/min Normal Estimated CRCL 10.14 LAB L501.1300 10-20 RATIO Low BUN/CRE 3.9 LAB L501.2200 8.5-10 mg/dL Normal .1 CA 8.6 LAB L501.5300 136-14 mmol/L Normal 5 NA 137 LAB L501.5600 3.5-5. mmol/L Normal 1 K 4.5 LAB L501.5900 98-107 mmol/L Low CL 97 LAB L501.6100 21.0-3 mmol/L Normal 2.0 CO2 30.0 LAB L501.6200 5-15 Normal GAP 10 Performed By: #### L500.2500 #### [facility] [address] [place], [address] D-DIMER QUANTITATIVE Collected: 08/11/2018 Status: F Source: NAJMA (DVT/PE) 3:40 PM [facility] REPOSITORY TYPE CODE TESTS RESULT OUT OF RANGE REFERENCE UNITS LAB L300.8000 0.27-0.49 FEU/ug/m High alert D-DIMER 1.28 QUANT Result Comment: RESULTS CALLED TO [facility]RIS [facility]OS ED 08/11/18 [facility]1 Sean Lewis. REPORT READ BACK BY SAME . D-Dimer ELEVATED (>0.49): Additional studies and clinical assessments are indicated to conclude diagnosis of: Deep Vein Thrombosis (DVT) or Pulmonary Embolism (PE) Performed By: #### L300.8000 #### [facility] [address] [place], [address] CBC W/DIFF, AUTOMATED Collected: 08/11/2018 Status: F Source: NAJMA 3:40 PM [facility] REPOSITORY TYPE CODE TESTS RESULT OUT OF RANGE REFERENCE UNITS LAB L100.1000 4.4-11.0 K/mm3 Normal WBC 5.4 LAB L100.1200 4.6-6.2 M/mm3 Low RBC 4.18 LAB L100.1300 13.0-16.5 g/dl Low HGB 11.7 LAB L100.1400 40-54 % Low HCT 38.0 LAB L100.1500 80-94 fL Normal MCV 90.9 LAB L100.1600 27.0-32.0 pg Normal MCH 28.0 LAB L100.1700 32-36 g/gl Low MCHC 30.8 LAB L100.1810 11.6-14.6 % High RDW CV 16.2 LAB L100.1820 35.1-43.9 fl High RDW SD 53.7 LAB L100.1900 150-450 K/mm3 Normal PLT 197 LAB L100.2000 6.2-12.0 fl Normal MPV 10.5 LAB L100.2100 47-70 % Normal NEUT% 63.1 LAB L100.2200 19-41 % Low LY% 17.7 LAB L100.2300 0-10 % High MONO% 16.4 LAB L100.2400 0-5 % Normal EO% 2.4 LAB L100.2500 0-1 % Normal BASO% 0.2 LAB L100.2550 0.0-0.9 % Normal IM GRAN % 0.200 Result Comment: IG% - Immature Granulocytes (promyelocytes, myelocytes and metamyelocytes) > 1% indicates that a LEFT SHIFT is Present. LAB L100.2620 2.0-7.7 X10 3/uL Normal Absolute Neut 3.4 LAB L100.2720 0.83-4.51 X10 3/ul Normal Absolute Lymph 0.96 Performed By: #### L100.0100 #### [facility] [address] [place], [place], [address] PROGRESS Observed: 07/10/2018 Status: COMPLETED Source: [place] 1:47 PM [facility] OTHER CAMPUS REPOSITORY HNO ID: [id number] Author: Silviano Barr Service: (none) Author Type: Physician Type: Progress Notes Filed: 07/10/2018 1:49 PM Note Text: Patient is back to discuss further dialysis access. He is currently dialyzing through a femoral tunneled catheter. He is also actively in the process of being evaluated for transplant. I encouraged him to make his transplant appointments his priority at this point in time. 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 I talked about the fact that if we do any type of arm graft or even new fistula they could be fraught with the complications of arm swelling but probably we may need to accept this risk if we aren't going to get new access in his upper extremity. One thing that we really need to do is find out what the status of his right subclavian vein is in the only way I can really think to do this is to get a venogram on his right arm. I discussed this with the patient and he is amenable to going ahead and proceeding with a venogram and therefore I am going to try to set him up on a nondialysis day for a venogram of the right arm to assess central venous patency. The patient states that he is willing to do this and requests that I perform his procedures and I tell him that I would be happy to do so. We will try to go ahead and get this set up in the very near future so we can assess the patency of his arm and if I am capable of being the one to do the venogram I can discuss with him at that point in time what options we might have and save him another office visit.I spent 15 minutes in the visit, with more than 50% of the total dfgc-ps-wqbm time of the visit in counseling / coordination of care. CNOV Observed: 07/10/2018 Status: COMPLETED Source: [place] 1:15 PM [facility] OTHER [facility] REPOSITORY Office Visit (AGMIL) ELIA WESTON ([id number]) 1980 M Date Time Provider Department 07/10/18 1:15 PM SILVIANO BARR During your visit today, we recorded the following information about you: Pulse Respiration Blood pressure Weight 88/minute 18/minute 142/70 128.4 kg Height 1.778 m Silviano Barr MD 07/10/2018 1:49 PM Signed Patient is back to discuss further dialysis access. He is currently dialyzing through a femoral tunneled catheter. He is also actively in the process of being evaluated for transplant. I encouraged him to make his transplant appointments his priority at this point in time. 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 I talked about the fact that if we do any type of arm graft or even new fistula they could be fraught with the complications of arm swelling but probably we may need to accept this risk if we aren't going to get new access in his upper extremity. One thing that we really need to do is find out what the status of his right subclavian vein is in the only way I can really think to do this is to get a venogram on his right arm. I discussed this with the patient and he is amenable to going ahead and proceeding with a venogram and therefore I am going to try to set him up on a nondialysis day for a venogram of the right arm to assess central venous patency. The patient states that he is willing to do this and requests that I perform his procedures and I tell him that I would be happy to do so. We will try to go ahead and get this set up in the very near future so we can assess the patency of his arm and if I am capable of being the one to do the venogram I can discuss with him at that point in time what options we might have and save him another office visit.I spent 15 minutes in the visit, with more than 50% of the total yclm-ne-ccuh time of the visit in counseling / coordination of care. Referring Provider: AVINASH BANDA [[id number]] Allergies As of Date: 07/10/2018 (No Known Allergies) Date Reviewed: 07/10/2018 Reviewed by: Silviano Barr - Fully Assessed Reason for Visit: Chronic Kidney Disease [4078] Cmt: Elia is here to discuss dialysis access. Vein mapping done 06/10/18. Primary Visit Diagnosis:ESRD (end stage renal disease) on dialysis [N18.6, Z99.2] Order(s):IR VENOGRAM EXTREMITY UNILAT (AK) [2408362] Order #: [id number] Prescriptions as of 07/10/2018 Sig: SENSIPAR 60 MG TABLET Take 1.5 tablets by mouth onc* CARVEDILOL 3.125 MG TABLET Take 3.125 mg by mouth twice * WALKER 1 Each once daily. M25.561, E* SEVELAMER CARBONATE 800 MG TA* Take 2 tablets by mouth three* Patient not taking: Reported on 07/10/2018 Medication notes this encounter WALKER >> Princess Howard LPN 07/10/2018 1:31 PM >> PRINCESS HOWARD LPN FriJul 10, 2018 1:31 PM Not using Problem List As Of Date 07/10/2018 Noted Resolved ESRD (end stage renal disease) on dialysis [N18*INVALID FOR* More... HTN (hypertension) [I10] INVALID FOR* More... Morbid obesity (HCC) [E66.01] INVALID FOR* Epigastric pain [R10.13] INVALID FOR* Mechanical complication of other vascular devic*INVALID FOR* Right knee pain [M25.561] INVALID FOR* BMI 45.0-49.9, adult (HCC) [Z68.42] INVALID FOR* Tendinitis of left shoulder [M75.82] INVALID FOR* NO SHOW [405378] INVALID FOR* Mass of left thigh [R22.42] INVALID FOR* Thigh pain [M79.659] INVALID FOR* Hematuria [R31.9] INVALID FOR* Dialysis patient (HCC) [Z99.2] INVALID FOR* YEIMY (obstructive sleep apnea) [G47.33] INVALID FOR* More... Abdominal or pelvic swelling, mass, or lump, ri*INVALID FOR* More... Secondary hyperparathyroidism (HCC) [N25.81] INVALID FOR* More... Renal osteodystrophy [N25.0] INVALID FOR* More... Hyperphosphatemia [E83.39] INVALID FOR* Groin pain [R10.30] INVALID FOR* More... Pulmonary embolism without acute cor pulmonale *INVALID FOR* Sprain of medial collateral ligament of right k*INVALID FOR* Encounter Status:Closed by SILVIANO BARR MD on 07/10/18 Observed: 07/03/2018 Status: F Source: [facility] TYPE AND SCREEN - 12:24 PM [facility] REPOSITORY ABO/RH(D): B POSITIVE ANTIBODY SCREEN: NEGATIVE Performed By: #### TYSC #### [facility] [address] [place] [id number] [place] [address] [address] Observed: 07/03/2018 Status: F Source: [facility] ABO/RH(D) 12:15 PM [facility] REPOSITORY ABO/RH(D): B POSITIVE Performed By: #### ABORH #### [facility] [address] [place] [id number] [place] [address] [address] CBC,PLATELET,DIFFERENTIAL - CCL Collected: Status: F Source: [facility] 07/03/2018 8:55 AM [facility] REPOSITORY TYPE CODE TESTS RESULT OUT OF REFERENCE UNITS RANGE LAB WBC 4.23-9.07 K/uL WBC Count 5.31 LAB RBC 4.63-6.08 M/uL RBC Count 4.17 Low LAB HGB 13.7-17.5 g/dL Hemoglobin 11.5 Low LAB HCT 40.1-51.0 % Hematocrit 37.5 Low LAB MCV 79.0-92.2 fL Mean Cell 89.9 Volume LAB MCH 25.7-32.2 pg Mean Cell 27.6 Hgb LAB MCHC 32.3-36.5 g/dL Mean Cell 30.7 Low alert Hgb Conc LAB RDW 11.6-14.4 % RBC 16.9 High Distribution LAB PLT 163-337 K/uL Platelet 211 Count LAB MPV 9.4-12.4 fL Mean 11.2 Platelet Volume LAB NRBC 0.0-0.2 /100 WBC NUCLEATED 0.0 RBC LAB DTYPE Electronic DIFFERENTIAL TYPE Differential LAB IGRE % IMMATURE 0.4 GRANS % LAB SEGS % NEUTROPHIL 49.9 SEGMENTED LAB LYM % LYMPHOCYTE 27.9 % LAB MON % MONOCYTE % 17.1 LAB EOS % EOSINOPHIL 3.8 % LAB BASO % BASOPHIL % 0.9 LAB IGABS <0.04 K/uL IMMATURE <0.04 GRANS ABSOLUTE LAB SBANS 1.78-5.38 K/uL SEGS + 2.65 Bands,Absolute LAB ALYM 1.32-3.57 K/uL Abs Lymph 1.48 LAB AMONO 0.30-0.82 K/uL Abs Montgomery 0.91 High LAB AEOS <0.55 K/uL Abs Eos 0.20 LAB ABASO <0.09 K/uL Abs Baso 0.05 Performed By: #### CBCDFC, ALB, ENZ3, CHM7, BILTO, CA, GGTB, URICB, IPB, MGO, TP, OSMO, PTPTT, ALCOSU, HCAB, HSVM, HIV, CMVG, IPTH, SERDRG, HBSAB, HBSAG, HBCBG, EBVG, HSVG12, VZISB #### [facility] [address] [place] [address] [address] [place] [address] ALBUMIN Collected: 07/03/2018 Status: F Source: [facility] 8:55 AM [facility] REPOSITORY TYPE CODE TESTS RESULT OUT OF REFERENCE UNITS RANGE LAB ALB 3.5-5.0 g/dL Albumin 4.2 Performed By: #### CBCDFC, ALB, ENZ3, CHM7, BILTO, CA, GGTB, URICB, IPB, MGO, TP, OSMO, PTPTT, ALCOSU, HCAB, HSVM, HIV, CMVG, IPTH, SERDRG, HBSAB, HBSAG, HBCBG, EBVG, HSVG12, VZISB #### [facility] [place] [address] ALP*ALT*AST Collected: 07/03/2018 Status: F Source: [facility] 8:55 AM [facility] REPOSITORY TYPE CODE TESTS RESULT OUT OF REFERENCE UNITS RANGE LAB ALP 32-126 U/L Alkaline Phosphatase 69 LAB ALT 10-52 U/L Low ALT 4 LAB AST 14-40 U/L Low AST 9 Performed By: #### CBCDFC, ALB, ENZ3, CHM7, BILTO, CA, GGTB, URICB, IPB, MGO, TP, OSMO, PTPTT, ALCOSU, HCAB, HSVM, HIV, CMVG, IPTH, SERDRG, HBSAB, HBSAG, HBCBG, EBVG, HSVG12, VZISB #### [facility] [place] [address] CHEM 7 Collected: 07/03/2018 Status: F Source: [facility] 8:55 AM [facility] REPOSITORY TYPE CODE TESTS RESULT OUT OF REFERENCE UNITS RANGE LAB BUN 7-22 mg/dL BUN High 38 LAB NA 133-143 mmol/L Sodium 134 LAB K 3.5-5.0 mmol/L High Potassium 5.3 LAB CL 98-108 mmol/L Low Chloride 91 LAB CO2 22-30 mmol/L Carbon Dioxide 27 LAB GLUC 70-99 mg/dL Glucose 76 LAB CREA 0.70-1.30 mg/dL High alert Creatinine 10.57 Result Comment: Critical CREA result called to and read back by: RACHEL ROGERS at: 07/03/2018 13:50:35 by : [id number] LAB GAP 7-17 mmol/L Anion Gap High 21 LAB BC BUN/CREA Ratio 4 LAB OSMC 278-305 mOsm/kg Osmolality (Calc) 292 LAB GFR >60 mL/min/1.73sq Low M Est GFR,non 6 LAB GFRA >60 mL/min/1.73sq Low M Est GFR, 7 Performed By: #### CBCDFC, ALB, ENZ3, CHM7, BILTO, CA, GGTB, URICB, IPB, MGO, TP, OSMO, PTPTT, ALCOSU, HCAB, HSVM, HIV, CMVG, IPTH, SERDRG, HBSAB, HBSAG, HBCBG, EBVG, HSVG12, VZISB #### [facility] [address] [place] [address] [place] [address] BILIRUBIN, TOTAL Collected: 07/03/2018 Status: F Source: [facility] 8:55 AM [facility] REPOSITORY TYPE CODE TESTS RESULT OUT OF REFERENCE UNITS RANGE LAB BILT <1.5 mg/dL Bilirubin Total 0.5 Performed By: #### CBCDFC, ALB, ENZ3, CHM7, BILTO, CA, GGTB, URICB, IPB, MGO, TP, OSMO, PTPTT, ALCOSU, HCAB, HSVM, HIV, CMVG, IPTH, SERDRG, HBSAB, HBSAG, HBCBG, EBVG, HSVG12, VZISB #### [facility] [address] [place] [address] [place] [address] CALCIUM Collected: 07/03/2018 Status: F Source: [facility] 8:55 AM [facility] REPOSITORY TYPE CODE TESTS RESULT OUT OF REFERENCE UNITS RANGE LAB CA 8.6-10.5 mg/dL Calcium 9.1 Performed By: #### CBCDFC, ALB, ENZ3, CHM7, BILTO, CA, GGTB, URICB, IPB, MGO, TP, OSMO, PTPTT, ALCOSU, HCAB, HSVM, HIV, CMVG, IPTH, SERDRG, HBSAB, HBSAG, HBCBG, EBVG, HSVG12, VZISB #### [facility] [address] [address] GGT Collected: 07/03/2018 Status: F Source: [facility] 8:55 AM [facility] REPOSITORY TYPE CODE TESTS RESULT OUT OF RANGE REFERENCE UNITS LAB GGT 8-64 U/L GGT 19 Performed By: #### CBCDFC, ALB, ENZ3, CHM7, BILTO, CA, GGTB, URICB, IPB, MGO, TP, OSMO, PTPTT, ALCOSU, HCAB, HSVM, HIV, CMVG, IPTH, SERDRG, HBSAB, HBSAG, HBCBG, EBVG, HSVG12, VZISB #### [facility] [address] [place] [address] URIC ACID Collected: 07/03/2018 Status: F Source: [facility] 8:55 AM [facility] REPOSITORY TYPE CODE TESTS RESULT OUT OF RANGE REFERENCE UNITS LAB URIC 3.5-7.0 mg/dL Uric Acid 4.3 Performed By: #### CBCDFC, ALB, ENZ3, CHM7, BILTO, CA, GGTB, URICB, IPB, MGO, TP, OSMO, PTPTT, ALCOSU, HCAB, HSVM, HIV, CMVG, IPTH, SERDRG, HBSAB, HBSAG, HBCBG, EBVG, HSVG12, VZISB #### [facility] [address] [place] [address] INORGANIC PHOSPHATE Collected: 07/03/2018 Status: F Source: [facility] 8:55 AM [facility] REPOSITORY TYPE CODE TESTS RESULT OUT OF REFERENCE UNITS RANGE LAB IP 2.2-4.6 mg/dL Inorg High Phosphate 7.2 Performed By: #### CBCDFC, ALB, ENZ3, CHM7, BILTO, CA, GGTB, URICB, IPB, MGO, TP, OSMO, PTPTT, ALCOSU, HCAB, HSVM, HIV, CMVG, IPTH, SERDRG, HBSAB, HBSAG, HBCBG, EBVG, HSVG12, VZISB #### [facility] [address] [place] [address] MAGNESIUM Collected: 07/03/2018 Status: F Source: [facility] 8:55 AM [facility] REPOSITORY TYPE CODE TESTS RESULT OUT OF REFERENCE UNITS RANGE LAB MG 1.6-2.6 mg/dL Magnesium 2.3 Performed By: #### CBCDFC, ALB, ENZ3, CHM7, BILTO, CA, GGTB, URICB, IPB, MGO, TP, OSMO, PTPTT, ALCOSU, HCAB, HSVM, HIV, CMVG, IPTH, SERDRG, HBSAB, HBSAG, HBCBG, EBVG, HSVG12, VZISB #### [facility] [address] [place] [address] TOTAL PROTEIN Collected: 07/03/2018 Status: F Source: [facility] 8:55 AM [facility] REPOSITORY TYPE CODE TESTS RESULT OUT OF REFERENCE UNITS RANGE LAB TP 6.4-8.3 g/dL High Total Protein 9.2 Performed By: #### CBCDFC, ALB, ENZ3, CHM7, BILTO, CA, GGTB, URICB, IPB, MGO, TP, OSMO, PTPTT, ALCOSU, HCAB, HSVM, HIV, CMVG, IPTH, SERDRG, HBSAB, HBSAG, HBCBG, EBVG, HSVG12, VZISB #### [facility] [address] [place] [address] [address] [place] [address] OSMOLALITY Collected: 07/03/2018 Status: F Source: [facility] 8:55 AM [facility] REPOSITORY TYPE CODE TESTS RESULT OUT OF REFERENCE UNITS RANGE LAB OSMO 278-305 mOsm/kg Osmolality 301 Performed By: #### CBCDFC, ALB, ENZ3, CHM7, BILTO, CA, GGTB, URICB, IPB, MGO, TP, OSMO, PTPTT, ALCOSU, HCAB, HSVM, HIV, CMVG, IPTH, SERDRG, HBSAB, HBSAG, HBCBG, EBVG, HSVG12, VZISB #### [facility] [address] [place] [id number] [place] [address] [address] [place] [address] PT*PTT Collected: 07/03/2018 Status: F Source: [facility] 8:55 AM [facility] REPOSITORY TYPE CODE TESTS RESULT OUT OF RANGE REFERENCE UNITS LAB PT 11.9-14.2 sec High PT 15.6 LAB INR 0.9-1.1 High INR 1.2 LAB PTT 24.0-34.3 sec PTT 31.7 Performed By: #### CBCDFC, ALB, ENZ3, CHM7, BILTO, CA, GGTB, URICB, IPB, MGO, TP, OSMO, PTPTT, ALCOSU, HCAB, HSVM, HIV, CMVG, IPTH, SERDRG, HBSAB, HBSAG, HBCBG, EBVG, HSVG12, VZISB #### [facility] [address] [place] [address] [place] [address] ALCOHOL,WHOLE BLOOD/SERUM Collected: 07/03/2018 Status: F Source: [facility] 8:55 AM [facility] REPOSITORY TYPE CODE TESTS RESULT OUT OF REFERENCE UNITS RANGE LAB ALCOSU <10 mg/dL <10 Alcohol,Whol e Blood/Serum Result Comment: For Medical Purposes Only, Non forensic Performed By: #### CBCDFC, ALB, ENZ3, CHM7, BILTO, CA, GGTB, URICB, IPB, MGO, TP, OSMO, PTPTT, ALCOSU, HCAB, HSVM, HIV, CMVG, IPTH, SERDRG, HBSAB, HBSAG, HBCBG, EBVG, HSVG12, VZISB #### [facility] [address] [place] [address] [address] [place] [address] HEPATITIS C ANTIBODY Collected: 07/03/2018 Status: F Source: [facility] 8:55 AM [facility] REPOSITORY TYPE CODE TESTS RESULT OUT OF REFERENCE UNITS RANGE LAB HCAB Negative Hepatitis C Negative Antibody Performed By: #### CBCDFC, ALB, ENZ3, CHM7, BILTO, CA, GGTB, URICB, IPB, MGO, TP, OSMO, PTPTT, ALCOSU, HCAB, HSVM, HIV, CMVG, IPTH, SERDRG, HBSAB, HBSAG, HBCBG, EBVG, HSVG12, VZISB #### [facility] [address] [place] [address] HSV I/II IGM ANTIBODY Collected: 07/03/2018 Status: F Source: [facility] 8:55 AM [facility] REPOSITORY TYPE CODE TESTS RESULT OUT OF REFERENCE UNITS RANGE LAB HSVM Negative HSV I/II IgM Negative Antibody Performed By: #### CBCDFC, ALB, ENZ3, CHM7, BILTO, CA, GGTB, URICB, IPB, MGO, TP, OSMO, PTPTT, ALCOSU, HCAB, HSVM, HIV, CMVG, IPTH, SERDRG, HBSAB, HBSAG, HBCBG, EBVG, HSVG12, VZISB #### [place] [address] HIV-1/HIV-2 AB WITH P24 Collected: 07/03/2018 Status: F Source: [facility] ANTIGEN 8:55 AM [facility] REPOSITORY TYPE CODE TESTS RESULT OUT OF REFERENCE UNITS RANGE LAB HIV NONREACTIVE NONREACTIVE HIV-1/HIV-2 AB with p24 Antige Performed By: #### CBCDFC, ALB, ENZ3, CHM7, BILTO, CA, GGTB, URICB, IPB, MGO, TP, OSMO, PTPTT, ALCOSU, HCAB, HSVM, HIV, CMVG, IPTH, SERDRG, HBSAB, HBSAG, HBCBG, EBVG, HSVG12, VZISB #### [facility] [address] [place] [address] CMV IGG ANTIBODY Collected: 07/03/2018 Status: F Source: [facility] 8:55 [facility] REPOSITORY TYPE CODE TESTS RESULT OUT OF RANGE REFERENCE UNITS LAB CMVG Negative Abnormal CMV IgG POSITIVE Antibody Performed By: #### CBCDFC, ALB, ENZ3, CHM7, BILTO, CA, GGTB, URICB, IPB, MGO, TP, OSMO, PTPTT, ALCOSU, HCAB, HSVM, HIV, CMVG, IPTH, SERDRG, HBSAB, HBSAG, HBCBG, EBVG, HSVG12, VZISB #### [facility] [address] [place] [address] INTACT PTH Collected: 07/03/2018 Status: F Source: [facility] [address] [place] [address] REPOSITORY TYPE CODE TESTS RESULT OUT OF REFERENCE UNITS RANGE LAB IPTH 14.0-72.0 pg/mL High INTACT PTH 327.2 Performed By: #### CBCDFC, ALB, ENZ3, CHM7, BILTO, CA, GGTB, URICB, IPB, MGO, TP, OSMO, PTPTT, ALCOSU, HCAB, HSVM, HIV, CMVG, IPTH, SERDRG, HBSAB, HBSAG, HBCBG, EBVG, HSVG12, VZISB #### [facility] [address] [place] [address] [place] [address] BLOOD DRUG SCREEN Collected: 07/03/2018 Status: F Source: [facility] 8:[address] [place] [address] REPOSITORY TYPE CODE TESTS RESULT OUT OF REFERENCE UNITS RANGE LAB ASRES NONE BLOOD DRUGS DETECTED DETECTED LAB ASDRG For Medical BLOOD DRUG Purposes Only, SCREEN Non-forensic, screen results are presumptive. No confirmatory testing will follow. Result Comment: This Liquid Chromatography Mass Spectrometry (LC/MS/MS) test was developed and its performance characteristics determined by [facility] at [facility]. It has not been cleared or approved by the FDA. The laboratory is regulated under CLIA as qualified to perform high-complexity testing. This test is used for clinical purposes. It should not be regarded as investigational or for research. The following drugs with their lowest level of detection in ng/ml(LOD) are included in this screen: 6 Monoacetylmorphine(300), 7 Aminoflunitrazepam(25), 7 Aminoclonazepam(50), Alphahydroxytriazolam(400), Alphahydrozyalprazolam(200), Alprazolam(50), Amitriptyline(50), Amphetamine(250), Atenolol(500), Barbiturates(1000), Benzoylecgonine(50), Buprenorphine(50), Bupropion(25), Caffeine(00958), Chlordiazepoxide(50), Chlorpheniramine(100), Chlorpromazine(50), Citalopram(100), Clonazepam(200), Cocaine(25), Codeine(200), Cotinine(500), Desakylflurazepam(50), Desipramine(50), Desmethyldoxepin(100), Dextromethorphan(100), Diazepam(100), Dihydrocodeine(100), Diltazem(50), Diphenhydramine(100), Doxepin(100), EDDP/methadone(100), Ephedrine/Pseudoephedrine(100), Fentanyl(25), Flunitrazepam(100), Fluoxetine(200), Flurazepam(50), Gabapentin(1500), Haloperidol(25), Hydrocodone(100), Hydromorphone(200), Imipramine(50), Ketamine(25), Lidocaine(25), Lorazepam(100), Lysergide(LSD)(25), Maprotiline(200), MDA(250), MDMA(250), Meperidine(50), Methadone(50), Methamphetamine(500), Methylphenidate(50), Metoprolol(50), Morphine(200), Nalbuphine(50), Naloxone(200), Norbuprenorphine(300), Nordiazepam(100), Norfentanyl(100), Norpropoxyphene(50), Nortriptyline(50), Olanzapine(200), Oxazepam(200), Oxycodone(100), Oxymorphone(200), Phencyclidine(PCP)(25), Pheniramine(25), Pregabalin(1500), Promethazine(50), Propoxyphene(100), Propanolol(50) Quetiapine(25), Quinidine(500), Ranitidine(500), Risperidone(100), Sertraline(50), Temazepam(100), Thioridazine(100), Tramadol(50), Trazodone(25, Triazolam(100), Venlafaxine(50), Verapamil(100), Zolpidem(200) Performed By: #### CBCDFC, ALB, ENZ3, CHM7, BILTO, CA, GGTB, URICB, IPB, MGO, TP, OSMO, PTPTT, ALCOSU, HCAB, HSVM, HIV, CMVG, IPTH, SERDRG, HBSAB, HBSAG, HBCBG, EBVG, HSVG12, VZISB #### [place] [address] HEP B SURFACE AB Collected: 07/03/2018 Status: F Source: [facility] 8:55 AM [facility] REPOSITORY TYPE CODE TESTS RESULT OUT OF RANGE REFERENCE UNITS LAB HBSAB Negative Abnormal Hep B Surface POSITIVE Ab Performed By: #### CBCDFC, ALB, ENZ3, CHM7, BILTO, CA, GGTB, URICB, IPB, MGO, TP, OSMO, PTPTT, ALCOSU, HCAB, HSVM, HIV, CMVG, IPTH, SERDRG, HBSAB, HBSAG, HBCBG, EBVG, HSVG12, VZISB #### [place] [address] HEP B SURFACE AG Collected: 07/03/2018 Status: F Source: [facility] 8:55 AM [facility] REPOSITORY TYPE CODE TESTS RESULT OUT OF REFERENCE UNITS RANGE LAB HBSAG Negative Hep B Surface Negative Ag Performed By: #### CBCDFC, ALB, ENZ3, CHM7, BILTO, CA, GGTB, URICB, IPB, MGO, TP, OSMO, PTPTT, ALCOSU, HCAB, HSVM, HIV, CMVG, IPTH, SERDRG, HBSAB, HBSAG, HBCBG, EBVG, HSVG12, VZISB #### [facility] [address] [place] [address] [place] [address] HEP B CORE AB,TOTAL Collected: 07/03/2018 Status: F Source: [facility] (IGG+IGM) 8:55 AM [facility] REPOSITORY TYPE CODE TESTS RESULT OUT OF REFERENCE UNITS RANGE LAB HBCBG Negative Hep B Negative Core Ab,Total (IgG+IgM) Performed By: #### CBCDFC, ALB, ENZ3, CHM7, BILTO, CA, GGTB, URICB, IPB, MGO, TP, OSMO, PTPTT, ALCOSU, HCAB, HSVM, HIV, CMVG, IPTH, SERDRG, HBSAB, HBSAG, HBCBG, EBVG, HSVG12, VZISB #### [facility] [address] [place] [address] [place] [address] EBV VCA IGG ANTIBODY Collected: 07/03/2018 Status: F Source: [facility] 8:55 AM [facility] REPOSITORY TYPE CODE TESTS RESULT OUT OF RANGE REFERENCE UNITS LAB EBVG Negative Abnormal EBV VCA IgG POSITIVE Antibody Performed By: #### CBCDFC, ALB, ENZ3, CHM7, BILTO, CA, GGTB, URICB, IPB, MGO, TP, OSMO, PTPTT, ALCOSU, HCAB, HSVM, HIV, CMVG, IPTH, SERDRG, HBSAB, HBSAG, HBCBG, EBVG, HSVG12, VZISB #### [facility] [address] [place] [address] [place] [address] HSV I&II IGG ANTIBODY Collected: 07/03/2018 Status: F Source: [facility] 8:55 AM [facility] REPOSITORY TYPE CODE TESTS RESULT OUT OF RANGE REFERENCE UNITS LAB HSVG1 Negative Abnormal HSV 1 IgG POSITIVE Antibody LAB HSVG2 Negative HSV 2 IgG Negative Antibody Performed By: #### CBCDFC, ALB, ENZ3, CHM7, BILTO, CA, GGTB, URICB, IPB, MGO, TP, OSMO, PTPTT, ALCOSU, HCAB, HSVM, HIV, CMVG, IPTH, SERDRG, HBSAB, HBSAG, HBCBG, EBVG, HSVG12, VZISB #### [facility] [address] [place] [address] [facility] [address] [place] [address] VARICELLA IMMUNE Collected: 07/03/2018 Status: F Source: [facility] STATUS IGG ANTIBODY 8:55 AM [facility] REPOSITORY TYPE CODE TESTS RESULT OUT OF REFERENCE UNITS RANGE LAB VZIS POSITIVE Varicella POSITIVE Immune Status IgG An Result Comment: Prior exposure to the varicella zoster virus may cause measurable varicella zoster IgG antibody. LAB VZISQ Varicella Immune Status IgG >8.0 In Result Comment: THIS IS A QUALITATIVE ASSAY. The numeric value is not necessarily indicative of the amount of anti-Measles, Mumps, Rubella, or VZV IgG antibody present. Results should be interpreted in conjunction with clinical and epidemological data. Performed By: #### CBCDFC, ALB, ENZ3, CHM7, BILTO, CA, GGTB, URICB, IPB, MGO, TP, OSMO, PTPTT, ALCOSU, HCAB, HSVM, HIV, CMVG, IPTH, SERDRG, HBSAB, HBSAG, HBCBG, EBVG, HSVG12, VZISB #### [facility] [address] [place], [place] [id number] [facility] [address] [place] [address] INTERNAL MEDICINE Observed: 06/26/2018 Status: F Source: [place] OFFICE VISIT 10:36 AM [facility] REPOSITORY [facility] [address] [place] [address] [address] [place] [address] OFFICE VISIT Date of Service: 06/26/18 MR#: [id number] Acct: [id number] Name: ENRICOELIA Javier Rep #: [id number] : 1980 Provider: Shahram Major NP Age/Sex: 38/M Location: [facility] Status: Signed Intake Vital Signs06/26/18 Height 5 ft 11 in 06/26/18 Weight: 292 lb 06/26/18 Body Mass Index (BMI) 40.7 06/26/18 Blood Pressure 120/86 H Intake Visit Reasons: REVIEW SLEEP APNEA Chief Complaint: follow-up Sleep Apnea Is patient in pain?: No Allergies No Known Allergies Allergy (Verified 06/26/18 09:30) Medications cinacalcet 60 mg tablet 60 mg PO TUTHSA 10/10/17 [History Confirmed 06/26/18] Carvedilol [Coreg (Beta Yossi)] 1 tab PO BID 01/08/18 [History Confirmed 06/26/18] Ferric Citrate [Auryxia] 3 tab PO TIDCM 05/15/18 [History Confirmed 06/26/18] [facility] Medical History Sleep apnea (Chronic) History of blood clots (Acute) Hearing loss (Chronic) Social History Smoking Status: Never smoker alcohol intake: never substance use type: does not use what type of physical activity do you participate in: none HPI HPI Chief Complaint: follow-up Sleep Apnea Details: ELIA WESTON, is a 38 M who presents to the office today for a follow-up visit regarding his obstructive sleep apnea. He has a complicated past medical history as listed above. The patient states that he was initially diagnosed with sleep apnea approximately 20 years ago and that his CPAP machine is approximately 20 years old. He states that he does not recall having a recent re-titration study and that over the past 5 years or so he has went from being 500 pounds to 290 pounds. He does state that he has consistent with utilizing his CPAP machine and that when he does not use it he notes excessive snoring, excessive daytime somnolence, and excessive fatigue. He does state that the symptoms improve when utilizing as machine. He denies any acute complaints at this time. The patient otherwise denies any fever, chills, nausea, vomiting, shortness of breath, chest pain or pressure, palpitations, orthopnea, lower extremity edema, syncope or presyncopal episodes. STOP-BANG Assessment: 1. Do you snore? y 2. Are you frequently tired during the day? y 3. Have you been observed gasping or choking while asleep? y 4. Do you have high blood pressure? y 5. BMI - greater than 35kg/m2? y 6. Age - over 50 years old? n 7. Neck Circumference - greater than 37 cm for females or 40 cm for males? y 47 cm 8. Gender - male? y Total STOP-BANG score = 7 which indicates high risk for obstructive sleep apnea (yes to 3 or more questions = high risk of sleep apnea). ROS Const Constitutional: Positive for fatigue; no chills, fever(s), frequent falls, malaise, weakness, sleep problems or change in appetite Eyes Eyes: No blurry vision, change in vision, double vision, discharge or visual disturbances ENT ENT: No abnormal hearing, ear pain, ear pressure, tinnitus or dizziness/vertigo Resp Respiratory: No cough, shortness of breath or wheezing Cardio Cardiology: No chest pain at rest, chest pain with exertion, shortness of breath, dyspnea on exertion, generalized swelling, irregular heart rhythm, lightheadedness, orthopnea, fast heart rate or palpitations Gastro GI: No abdominal pain, change in bowel habits, constipation, diarrhea, nausea/dyspepsia or vomiting Genitourinary Male: No difficulty urinating, burning urination, painful urination, urinary incontinence, urinary frequency, urinary urgency, urinary hesitancy, urinary retention, blood in urine, Frequent nighttime urination/ nocturia, sexual problems, testicle lump or testicle pain Musc Musculoskeletal: No joint pain, back pain, joint swelling, limited range of motion, muscle weakness, numbness or tingling Skin Skin: No change in skin color, itching, rash or wounds Breast Breast: No breast lump or breast pain Neuro Neurology: No frequent falls, weakness, abnormal hearing, numbness, tingling, unsteady gait/balance, dizziness, loss of vision, memory loss or visual disturbances Psych Psychiatric: No memory loss, No anxiety, No change in appetite, No depression, No Thoughts of harming yourself/Others Endo Endocrine: Positive for fatigue; no heat intolerance, increased thirst/drinking, increased hunger or increased urination Aller/Imm Allergy/Immunologic: No wheezing, itchy eyes or seasonal allergy symptoms Lucas/Lymp Hematologic/Lymphatic: No easy bleeding, easy bruising or enlarged lymph nodes Exam Const General: cooperative, comfortable, no acute distress Nutritional Appearance: average body habitus, well nourished Orientation: alert, oriented x3 Limitations: mental status not altered HENMT Head: normal to inspection Ears: hearing grossly normal bilaterally Mouth: oral mucosae normal, other (mallampati 4) Throat: posterior oropharynx normal, uvula midline Neck Neck: normal visual inspection, no lymphadenopathy, other (47 cm) Resp Effort AND Inspection: normal respiratory effort, able to speak in complete sentences, normal respiratory pattern, symmetric chest movement, no audible wheezes, no cough Auscultation: Bilateral: Clear to Auscultation Cardio Palpation: normal PMI Rate: regular rate Heart Sounds: S1 normal, S2 normal, normal S1 and S2, no click, no gallops, no murmurs, no rubs Musc Musculoskeletal: No muscle weakness Neuro General: alert, awake, oriented x3, CN's II-XI intact bilaterally Speech: speech normal Gait: normal gait Motor: muscle tone normal throughout Extrem General: normal to inspection, normal gait, no edema, no pedal edema Psych Appearance: grossly normal Mental Status: mental status grossly normal Affect: normal affect Attitude: cooperative Thought Process: normal Assessment AND Plan Problems 1. Obstructive sleep apnea G47.33 2. Daytime somnolence R40.0 3. Morbid obesity E66.01 Plan Given the patient's symptoms and his weight loss of approximately 200 pounds. Would recommend a re-titration study prior to initiation of new CPAP settings and a new machine being ordered. His machine is 20 years old and patient would benefit from and it was seen. Per patient he utilizes his Pap device compliantly and notes great benefits from the use including less fatigue, less snoring, and less daytime somnolence. Replacement of the device is recommended. We will continue to follow in the future. Orders Orders: Coding Level of Care Code Off vis,est,level 3 Diagnoses Obstructive sleep apnea G47.33 Daytime somnolence R40.0 Morbid obesity E66.01 06/26/18 1036 <Electronically signed by Shahram RUSSELL> Date Shahram RUSSELL Cosigner Signature: Date (if applicable) CC: POTASSIUM Collected: 06/12/2018 Status: F Source: [facility] 11:20 AM [facility] REPOSITORY Order Comment: CALL RESULTS STAT [id number] TYPE CODE TESTS RESULT OUT OF RANGE REFERENCE UNITS LAB L501.5600 3.5-5.1 mmol/L Low K 3.3 Performed By: #### L501.5600 #### [facility] [address] [facility] [place], [address] VENOUS DUPLEX UPPER Observed: 06/10/2018 Status: F Source: [place] EXTREMITY 5:20 PM [facility] REPOSITORY [facility] Services [address] [place] [address] Saphenous Vein Mapping, Bilat 06/10/18 0816 MR#: [id number] Acct: [id number] Name: ELIA WESTON Javier Rep #: [id number] : 1980 38 From: Harley Yin MD Attending Dr: Keyla Melendez M.D. Status: REG CLI Ordering Dr: Tameka Melendez MD Date: 06/10/18 Location: [facility] Sex: M AA Admitted: Reason For Study: ESRD - FAILED GRAFTS Right Arm Left Arm Right Cephalic Vein at the wrist Occluded graft lt forearm. measures .14 X .15 cm. Left Cephalic Vein above antecub Right Cephalic Vein in the forearm measures .28 x .29 cm. measures .18 X .20 cm. Left Cephalic Vein at mid bicep measures .41 Right Cephalic Vein below antecub x .44 cm. measures .20 X .21 cm. Left Cephalic Vein at the shoulder Right Cephalic Vein above antecub measures .28 x .27 cm. measures .33 X .36 cm. Basilic vein at origin measures .50 x .51 Occluded graft upper arm. cm. Right Basilic Vein at the origin Basilic vein at bicep measures .51 x .56 cm. measures .28 x .29 cm. Basilic vein above antecub measures .54 Right Basilic Vein mid bicep measures .25 x .59 cm. x .28 cm. Basilic v is non-compressible below Right Basilic Vein above antecub antecubital space. measures .22 x .24 cm. Brachial artery - .50 x .53 cm with a Brachial artery - .49 x .51 cm with a velocity of 65.6 cm/s velocity of 69.1 cm/s Radial artery - .21 x .23 cm with a velocity Radial artery - .21 x .23 cm with a velocity of 48.3 cm/s. of 13.6 cm/s Ulnar artery - 62.5 cm/s. Interpretation Summary Small right forearm cephalic vein Occluded right upper arm AV graft Small right upper arm basilic vein Adequate right brachial and radial arteries. Adequate left upper arm cephalic vein Occluded left forearm AV graft Adequate left upper arm basilic vein Superficial thrombophlebitis left forearm basilic vein Adequate left brachial artery Poor flow left radial artery Ordering Physician: Keyla Melendez Referring Physician: Keyla Melendez Performed By: Aleida Spivey RVT 06/10/181719 Date Harley Yin MD CC: Avinash Banda MD; Keyla Melendez M.D. Date Dictated: 06/10/18815 Date Transcribed: 06/10/181719 Brick Chimney Supervisor: Signed INTERNAL MEDICINE Observed: 05/25/2018 Status: F Source: [place] OFFICE VISIT 3:40 PM [facility] [address] [place] [address] [address] [place] [address] OFFICE VISIT Date of Service: 05/25/18 MR#: [id number] Acct: [id number] Name: ELIA WESTON Rep #: [id number] : 1980 Provider: Avinash Banda MD Age/Sex: 38/M [place] [facility] [place] Status: Signed Intake Vital Signs05/25/18 Height 5 ft 11 in Intake Visit Reasons: F/U 05/22/18 APPT Chief Complaint: follow-up Is patient in pain?: Yes (left arm) Pain scale (1-10): 5 Allergies No Known Allergies Allergy (Verified 05/19/18 23:52) Medications cinacalcet 60 mg tablet 60 mg PO TUTHSA 10/10/17 [History Confirmed 05/22/18] Carvedilol [Coreg (Beta Yossi)] 1 tab PO BID 01/08/18 [History Confirmed 05/22/18] Ferric Citrate [Auryxia] 3 tab PO TIDCM 05/15/18 [History Confirmed 05/15/18] cephalexin 500 mg capsule 500 mg PO Q6H #28 cap 05/22/18 [Rx Confirmed 05/22/18] oxycodone-acetaminophen 5 mg-325 mg tablet 1 tab PO Q6H PRN PRN 5 Days #20 tab 05/22/18 [Rx Confirmed 05/22/18] PFSH Medical History History of blood clots (Acute) Hearing loss (Chronic) Social History Smoking Status: Never smoker alcohol intake: never substance use type: does not use what type of physical activity do you participate in: none HPI HPI Chief Complaint: follow-up Details: ELIA WESTON, is a 38yo M who presents to the office today for follow up. He was seen here about on Friday due to concerns for left forearm pain. Prior to onset of pain, he had a fistulogram which is said to have gone on for longer than he typically does with more probing done in usual. Subsequently developed left forearm pain and was started on Keflex during his last visit here. He was also seen in the ER and placed on Percocet. He denies any worsening of the pain. Mother denies any discharge from the site and warmth is said to be improving. He denies chills, fever or otherwise feeling of unwell. Fistula is still blocked and dialysis access is a left groin catheter. He was also recently admitted to the hospital for chest pain with ACS ruled out. PE was also ruled out. He denies any chest pain at this time reports occasional lightheadedness. ROS Const Constitutional: No weight change, body ache, chills, fatigue, sleep problems, fever(s), change in appetite, snoring, weakness, frequent falls, headache(s) or excessive sweating Eyes Eyes: No change in vision, eye pain, light sensitivity or blurry vision ENT ENT: No headache(s), abnormal hearing, ear pain, tinnitus, nasal congestion, sore throat or neck pain Resp Respiratory: No snoring, cough, shortness of breath or wheezing Cardio Cardiology: No excessive sweating, chest pain at rest, chest pain with exertion, shortness of breath, dyspnea on exertion, palpitations, orthopnea or lightheadedness Gastro GI: No abdominal pain, change in bowel habits, constipation, diarrhea, vomiting, nausea/dyspepsia or cramping Genitourinary Male: No painful urination, urinary incontinence, urinary frequency, urinary urgency, blood in urine, testicle pain or other Musc Musculoskeletal: No neck pain, abnormal walking, joint pain, back pain, limited range of motion, numbness or tingling Skin Skin: No redness, dry skin, itching, lesions, wounds or rash Neuro Neurology: No weakness, frequent falls, headache(s), abnormal hearing, abnormal walking, numbness, tingling, abnormal speech, dizziness or memory loss Psych Psychiatric: No change in appetite, No memory loss, No anxiety, No depression, No Thoughts of harming yourself/Others Endo Endocrine: No fatigue, excessive sweating, cold intolerance, increased thirst/drinking, heat intolerance, flushing or increased hunger Aller/Imm Allergy/Immunologic: No wheezing, itchy eyes, hives or seasonal allergy symptoms Lucas/Lymp Hematologic/Lymphatic: No easy bleeding, easy bruising or enlarged lymph nodes Exam Const General: cooperative, no acute distress Orientation: alert, awake, oriented x3 HENMT Head: atraumatic, normocephalic Ears: hearing grossly normal bilaterally Resp Effort AND Inspection: normal respiratory effort, able to speak in complete sentences Auscultation: Bilateral: Clear to Auscultation Cardio Rate: regular rate Rhythm: regular rhythm Heart Sounds: S1 normal, S2 normal GI Inspection: obesity Palpation: soft, no hepatosplenomegaly Extrem Other: No significant swelling or discharge appreciated from the left forearm fistula. Psych Appearance: grossly normal Affect: normal affect Assessment AND Plan 1. Clotted dialysis access T82.49XA Plan A Fistulogram was attempted however, this was not very successful and patient has had persistent pain since then. No significant swelling or discharge appreciated. Was started on keflex and percocet. Pain is improving. Next HD session is tomorrow. Advised to speak with his [employer] architect. ? US tomorrow. 2. Lightheadedness R42 Plan Has a chronic history of however, appeared to have worsened prior to hospital admission. No significant abnormality during workup. ??? Dis Equilibrium from HD. No worsening at this time, so will monitor. This note was generated with Social Intelligenceation software. It may contain incorrect words, spelling, and punctuation that were not noted in checking the note before signing. Plan Detail Follow Up 2 Weeks Coding Level of Care Code Off vis,est,level 3 Diagnoses Clotted dialysis access T82.49XA Lightheadedness R42 05/25/18 1540 <Electronically signed by Avinash Banda MD> Date Avinash Banda MD Cosigner Signature: Date (if applicable) CC: EMERGENCY DEPARTMENT Observed: 05/23/2018 Status: F Source: [place] SUMMARY 5:24 PM [facility] REPOSITORY [facility] Medical Records Department [address] [place] [address] Emergency Department Summary 05/20/18 0033 MR#: [id number] Acct: [id number] Name: ELIA WESTON Rep #: [id number] : 1980 38 From: Sean Wang MD PCP: Avinash Banda MD Status: DEP ER - ER Visit Summary Date of Service: 05/20/18 Chief Complaint: Left forearm pain and bleeding History of Present Illness: The patient is a 38 M Patient presented for evaluation secondary to left forearm pain and bleeding. Patient has a history of dialysis, and had a left-sided fistula. He is left-sided fistula clotted off, and he was up at [facility]. He states that he had a fistulogram, and they were attempting to perform interventions on his fistula for over 3 hours and were unsuccessful in opening it up. They then put a temporary Cordis in his left groin. Patient reports that he has had continuous slow bleeding from the left forearm, and is having a significant amount of pain. He denies any presence of fevers associated with this. Is not on any sort of 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s. Physical Examination: Physical exam unremarkable except for left upper extremity exam. Patient has a compressive dressing on his left arm. There are 2 vein puncture sites on the arm that have compressive dressing over top, and when removed there is blood clot and no active bleeding. There is exquisite tenderness to palpation of the arm. Left groin exam shows evidence that the patient has a Cordis in place with only a mild amount of bleeding on dressing. Test Results: None indicated Emergency Department Course and Treatment: Patient presented for evaluation secondary to mild bleeding and postoperative pain after having a fistulogram. He does not have evidence of significant bleeding. He has no palpable thrill or audible bruit, which is consistent with the fact that they state that they were unsuccessful in opening up his fistula. He has no signs of infection at this time. I believe the patient is appropriate for treatment with pain medication he was given a first dose in the emergency department and will be discharged with a short course of this. Disposition: Discharge Impression: 1. Mild postoperative bleeding 2. Postoperative pain This note was generated with Puridify dictation software. It may contain incorrect words, spelling, and punctuation that were not noted in review of the chart prior to signing ED Disposition - Plan for ED Patient: Disposition: Home or Assisted Living Chief Complaint: Wound Check Diagnosis: Postoperative pain Instructions: ED Post Op Pain Prescriptions: Oxycodone HCl/Acetaminophen [Percocet 5/325] 1 tab PO Q6H PRN PRN 3 Days #12 tab PRN Reason: Pain Referrals: Avinash Banda MD [Primary Care Provider] - As Needed What to do if you have Problems For any increased pain, shortness of breath, bleeding, nausea or vomiting, chest pain, or any unexpected problems, contact your Primary Care Provider. Call [facility] ([phone]) or report to the closest Emergency Room. Call 911 if necessary. 05/23/18 0054 <Electronically signed by Sean Wang MD> Date Sean Wang MD Cosigner Signature (If Indicated): Date CC: Avinash Banda MD INTERNAL MEDICINE Observed: 05/22/2018 Status: F Source: [facility] OFFICE VISIT 5:10 PM [facility] [address] [place] [address] [place] [address] OFFICE VISIT Date of Service: 05/22/18 MR#: [id number] Acct: [id number] Name: ELIA WESTON Javier Rep #: [id number] : 1980 Provider: Shahram Major NP Age/Sex: 38/M [place] [facility] [place] [place] Status: Signed Intake Vital Signs05/22/18 Height 5 ft 11 in Intake Visit Reasons: hosp f/u Chief Complaint: follow-up Er visit Is patient in pain?: Yes (groin and arm) Pain scale (1-10): 10 Allergies No Known Allergies Allergy (Verified 05/19/18 23:52) Medications cinacalcet 60 mg tablet 60 mg PO TUTHSA 10/10/17 [History Confirmed 05/22/18] Carvedilol [Coreg (Beta Yossi)] 1 tab PO BID 01/08/18 [History Confirmed 05/22/18] Ferric Citrate [Auryxia] 3 tab PO TIDCM 05/15/18 [History Confirmed 05/15/18] cephalexin 500 mg capsule 500 mg PO Q6H #28 cap 05/22/18 [Rx Confirmed 05/22/18] oxycodone-acetaminophen 5 mg-325 mg tablet 1 tab PO Q6H PRN PRN 5 Days #20 tab 05/22/18 [Rx Confirmed 05/22/18] PFSH Medical History History of blood clots (Acute) Hearing loss (Chronic) Social History Smoking Status: Never smoker alcohol intake: never substance use type: does not use what type of physical activity do you participate in: none HPI HPI Chief Complaint: follow-up Er visit Details: ELIA WESTON, is a 38 M who presents to the office today for follow-up of ER visit and for an acute visit of ongoing left arm pain. His past medical history includes junctional tachycardia, chronic pelvic pain, hypertension, end-stage renal disease stage IV, morbid obesity, sleep apnea, hyperparathyroidism. Patient was at [facility] on May 19, 2018 for a dialysis injection with thromboplastin to be done due to his left arm AV fistula being clotted. This area was unable to be unclotted and a tunneled dialysis catheter was placed to the left common femoral vein by Dr. Yu. Patient started to have increased pain to left arm swelling and then went to [facility] emergency room on May 20, 2028 due to severe left arm pain and mild postoperative bleeding from fistulogram. There were no infectious symptoms noticed at this time at ER the patient was prescribed Percocet 5/325 discharged home. Patient continues to have pain to left arm and stated that Percocet was ineffective for his left arm pain and rates it 10 out of 10 and describes it as a constant ache. Patient stated he took a half of a tablet of Percocet this morning and 1 tablet yesterday which was ineffective for his pain. He denies any further bleeding to the left arm or drainage, he however notes that it is warm and reddened now. He did not notify his microsoft solutions architect of his left arm pain but he did state that when he had his dialysis yesterday that he told the nurse. The patient otherwise denies any fever, chills, nausea, or vomitting. ROS Const Constitutional: Positive for fatigue; no weight change, body ache, chills, sleep problems, fever(s), change in appetite, snoring, weakness, frequent falls, headache(s) or excessive sweating Eyes Eyes: No change in vision, eye pain, light sensitivity or blurry vision ENT ENT: No headache(s), abnormal hearing, ear pain, tinnitus, nasal congestion, sore throat or neck pain Resp Respiratory: No snoring, cough, shortness of breath or wheezing Cardio Cardiology: Positive for chest pain at rest; no excessive sweating, chest pain with exertion, shortness of breath, dyspnea on exertion, palpitations, orthopnea or lightheadedness Gastro GI: No abdominal pain, change in bowel habits, constipation, diarrhea, vomiting, nausea/dyspepsia or cramping Genitourinary Male: No painful urination, urinary incontinence, urinary frequency, urinary urgency, blood in urine, testicle pain or other Musc Musculoskeletal: Positive for numbness, tingling (fingers, more so in the right) and other (pain in left arm ); no neck pain, abnormal walking, joint pain, back pain, limited range of motion or muscle weakness Skin Skin: Positive for other (left healing post surgical left arm ) and skin swelling (left arm ); no redness, dry skin, itching, lesions, wounds or rash Breast Breast: Positive for other (left healing post surgical left arm ) Neuro Neurology: Positive for numbness, tingling (fingers, more so in the right) and dizziness; no weakness, frequent falls, headache(s), abnormal hearing, abnormal walking, abnormal speech or memory loss Psych Psychiatric: No change in appetite, No memory loss, No anxiety, No depression, No Thoughts of harming yourself/Others Endo Endocrine: Positive for fatigue; no excessive sweating, cold intolerance, increased thirst/drinking, heat intolerance, flushing or increased hunger Aller/Imm Allergy/Immunologic: No wheezing, itchy eyes, hives or seasonal allergy symptoms Lucas/Lymp Hematologic/Lymphatic: No easy bleeding, easy bruising or enlarged lymph nodes Exam Const General: cooperative, comfortable, no acute distress Nutritional Appearance: average body habitus, well nourished Orientation: alert, oriented x3 Limitations: mental status not altered [facility] Head: normocephalic, atraumatic, normal to inspection Eyes General: appearance normal, both eyes and all related structures Resp Effort AND Inspection: normal respiratory effort, able to speak in complete sentences, normal respiratory pattern, symmetric chest movement, no audible wheezes, no cough Auscultation: Bilateral: Clear to Auscultation Cardio Palpation: normal PMI Rate: regular rate Heart Sounds: S1 normal, S2 normal, normal S1 and S2, no click, no gallops, no murmurs, no rubs GI Inspection: normal to inspection Auscultation: normal bowel sounds, no hyperactive bowel sounds, no hypoactive bowel sounds Palpation: soft, no hepatosplenomegaly Musc Musculoskeletal: No joint tenderness, decreased ROM or muscle weakness Skin Other: left anterior arm reddened, edematous slightly warm, and painful to touch upon palpation. No thrill noted on palpation of fistula Neuro General: alert, awake, oriented x3, CN's II-XI intact bilaterally Speech: speech normal Gait: normal gait Motor: muscle tone normal throughout Extrem General: normal to inspection, normal gait, edema (left anterior arm non pitting generalized) Psych Appearance: grossly normal Mental Status: mental status grossly normal Affect: normal affect Attitude: cooperative Thought Process: normal Assessment AND Plan Problems 1. Cellulitis of left arm L03.114 2. Postoperative pain of extremity G89.18 Plan Left arm warm to touch, edematous, and reddened consistent with cellulitis. Patient prescribed Keflex for cellulitis and for acute pain renewed Percocet 5/325 as directed. discussed red flag symptoms and when to seek urgent medical attention. Patient to follow-up in office on Friday for hospital follow-up and for recheck of cellulitis. Did discuss with patient to follow-up with his microsoft solutions architect and to make them aware of this complication. Did discuss with patient that if redness or pain worsens over the weekend he should seek immediate attention at the emergency department. Patient and patient's family member verbalized understanding. OARRS was verified and demonstrates no red flags that would indicate abuse or diversion This note was generated with Puridify dictation software. It may contain incorrect words, spelling, and punctuation that were not noted in checking the note before signing. Medications New: Changed: Plan Detail Follow Up Follow-up on Friday Coding Level of Care Code Off vis,est,level 3 Diagnoses Cellulitis of left arm L03.114 Postoperative pain of extremity G89.18 05/22/18 1710 <Electronically signed by Shahram RUSSELL> Date Shahram Major [employer]ARN[employer]-C Cosigner Signature: Date (if applicable) CC: DIALYSIS INJECTION WITH Observed: 05/19/2018 Status: F Source: [facility] THROMB/PLASTY [id number] 4:27 PM HEALTH SYSTEM REPOSITORY Performed at [facility] APPROVED BY: RADHA YU MD EXAM TITLE: ULTRASOUND-GUIDED ACCESS LEFT ARM AV FISTULA X2, INSTILLATION OF TPA FOR LYSIS, LEFT ARM FISTULOGRAM, ATTEMPTED DECLOT OF LEFT ARM AV FISTULA UTILIZING PHARMACOLOGIC AND MECHANICAL TECHNIQUE , ULTRASOUND GUIDED INTERROGATION OF RIGHT INTERNAL JUGULAR VEIN, ULTRASOUND-GUIDED PLACEMENT OF LEFT COMMON FEMORAL TUNNELED DIALYSIS CATHETER. DATE:05/19/2018 13:05 CLINICAL INDICATION/HISTORY: Clotted left arm AV fistula. 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 Risks include but are not limited to bleeding, infection, hematoma, hemorrhagic complications including strok e, pulmonary complications, ischemic complications of the left arm, LA and . In addition the patient understood that if we failed to declot the fistula he would need a catheter. TECHNIQUE: The ultrasound was used to interrogate the left arm AV fistula. Utilizing ultrasound guidance an IV was placed in the left arm AV fistula and 4 mg of TPA were infused. This was allowed to sit for 1 hour. All elements of maximal barrier technique including cap and mask, sterile gown, sterile gloves, a large sterile drape, hand hygiene and appropriate prep agent for cutaneous antisepsis were utilized and maintained during the procedure. The procedures performed by Radha Yu MD. Wire access was obtained in the left arm AV fistula through the previously placed IV and a 6 Bhutanese short sheath is placed. Local anesthetic was used for the procedure. A fistulogram was performed. U tilizing a Glidewire as well as an angled catheter, attempted mechanical thrombectomy was performed. Wire access was obtained into the radial artery. A mechanical thrombectomy was performed utilizing a 5 over the wire Eddie balloon. This yielded minimal results. At this point secondary access was obtained just distal to the antecubital fossa using ultrasound guidance. Utilizing the micropunctur e technique a short 6 Bhutanese sheath is placed. Wire access was obtained into the remaining part of the fistula. A fistulogram was performed. Again a mechanical thrombectomy was attempted. Utilizing a 5 x 8 balloon, angled catheters and wires, as well as a 5 over the wire Eddie, we attempted to restore flow to the part of the fistula. Repeat attempts were made utilizing a 5 x 8 balloon as well a s the Eddie to restore inflow to the fistula. In addition fistulogram stated revealed the patient does have clot in his radial artery. The patient denied having any symptoms of pain in his hand. Th e Eddie catheter was used with significant improvement in results in flow in the radial artery. Multiple fistulogram was performed. After significant attempts were made with both catheters, wires, s yringes, Eddie's, and balloons to declot this fistula, the procedure was terminated. The ultrasound was used to evaluate the left radial artery which did show good flow up to the level of the fistula and pseudoaneurysm. In addition the patient had a strong Doppler signal and is palmar arch the left hand. The patient did remain without any symptoms in his left arm. At this point I did discuss accessed with the patient. The patient had a left IJ known occlusion. By ultrasound guidance did appear that the right internal jugular vein was also occluded. At this poi nt I did offer to access the right internal jugular vein to confirm the occlusion, but the patient declined. Attention was turned to the left common femoral vein for placement of tunneled dialysis catheter.The left common femoral vein was interrogated with the ultrasound and found to be patent. Utilizing ultr asound guidance, a micropuncture needle was directed into the left common femoral vein and the tip of the needle within the vein was documented. Utilizing guidewire exchange and Seldinger technique, a long sheath was placed. A tunneled dialysis was selected and to the appropriate size. An area of the anterior thigh was anesthetized using Lidocaine with epinephrine and the catheter tunneled through this site to the peel-away sheath. The catheter was then introduced into the sheath and guided fluoroscopically with the tip at the inferior vena caval. A peel- away sheath was then removed and the cat heter was sutured in place and bandaged. The catheter was flushed with Hep-Lock solution. The catheter is ready for use. FINDINGS: Poor flow in the left radial artery by ultrasound prior to beginning the procedure Thrombosis of entire left arm AV fistula including pseudoaneurysms by ultrasound Unsuccessful attempts at declot of left forearm AV fistula utilizing pharmacological and mechanical techniques. Attempted declot with catheter, suction, balloon angioplasty and over the wire Eddie. 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 IMPRESSION: Unsuccessful attempt at declot of left forearm AV fistula utilizing pharmacological and mechanical technique. Occluded internal jugular veins and left subclavian vein Successful placement of left common femoral tunneled dialysis catheter 15 minutes 12 seconds fluoroscopy time 144 MG Y 44 cc contrast BRIEF OP NOT Observed: 05/19/2018 Status: COMPLETED Source: [place] 4:06 PM [facility] OTHER CAMPUS REPOSITORY O ID: [id number] Author: Radha Yu Service: Vascular Surgery Author Type: Physician Type: Brief Op Note Filed: 05/19/2018 4:08 PM Note Text: VASCULAR SURGERY POST PROCEDURE NOTE DATE: 05/19/18 NAME: Elia Weston LOG ID: [id number] Pre-Procedure Diagnosis: clotted L forearm AVF, Known L IJ and L subclavian occlusion Post Procedure Diagnosis: Same. Operations Supervisor 2Nd Shift: Dr. Radha Yu (Primary) Procedure: US guided access L forearm avf x2, tPA infusion, attempted pharmaco-mechanical declot of L forearm AVF, thrombectomy of L forearm AVF. Placement of L femoral tunneled dialysis catheter Anesthesia: Local Findings: R IJ occlusion by US. Unsuccessful declot of L forearm AVF. Successful placement of dialysis catheter Estimated Blood Loss: Minimal (Less Than 25 mL). Specimen: None. Complications: None. . Full report with procedural details to follow and will become available under Imaging Reports. Please contact for any questions or concerns. Radha Yu MD 12 LEAD ELECTROCARDIOGRAM Observed: 05/19/2018 Status: F Source: [place] 1:57 PM [facility] REPOSITORY [facility] Cardiovascular Services [address] [place] [address] 12 Lead EKG 05/15/18 0132 MR#: [id number] Acct: [id number] Name: ELIA WESTON Rep #: [id number] : 1980 38 From: Nnamdi Moreno MD Attending Dr: Harris Pope MD Status: DIS IN Ordering Dr: Dmitriy Lee MD Date: 05/15/18 Location: [facility] Sex: M AA Admitted: 05/15/18 Test Reason : Blood Pressure : / mmHG Vent. Rate : 184 BPM Atrial Rate : 055 BPM P-R Int : 000 ms QRS Dur : 064 ms QT Int : 264 ms P-R-T Axes : 000 137 067 degrees QTc Int : 462 ms Junctional rhythm Septal infarct , age undetermined Abnormal ECG Confirmed by JOSH STAHL, NNAMDI ([id number]), online content editor REYNA PAULINO ([id number]) on 05/19/2018 1:56:29 PM Referred By: JESUS Confirmed By:NNAMDI MORENO MD 05/19/18 1356 Date Nnamdi Moreno MD CC: DMITRIY LEE MD; Avinash Banda MD; Harris Pope MD Signed HOSP Observed: 05/18/2018 Status: COMPLETED Source: [place] 12:00 AM CLINIC OTHER CAMPUS REPOSITORY Patient:Elia Weston MRN: <[id number]> Height:5' 11(1.803 m) Weight:No patient weight recorded within the last 30 days. Outpatient Medications as of 05/19/18: SENSIPAR 60 mg tablet carvedilol (COREG) 3.125 mg tablet Walker misc sevelamer carbonate (RENVELA) 800 mg tablet Admission/Clinic Administered Medications as of 05/19/18: Patient has no admission medications. Problem List: ESRD (end stage renal disease) on dialysis [N18.6, Z99.2] HTN (hypertension) [I10] Morbid obesity (HCC) [E66.01] Epigastric pain [R10.13] Mechanical complication of other vascular device, implant, and graft [T82.598A] Right knee pain [M25.561] BMI 45.0-49.9, adult (HCC) [Z68.42] Tendinitis of left shoulder [M75.82] NO SHOW [285119] Mass of left thigh [R22.42] Thigh pain [M79.659] Hematuria [R31.9] Dialysis patient (HCC) [Z99.2] YEIMY (obstructive sleep apnea) [G47.33] Abdominal or pelvic swelling, mass, or lump, right lower quadrant [R19.03] Secondary hyperparathyroidism (HCC) [N25.81] Renal osteodystrophy [N25.0] Hyperphosphatemia [E83.39] Groin pain [R10.30] Pulmonary embolism without acute cor pulmonale (HCC) [I26.99] Sprain of medial collateral ligament of right knee [S83.411A] Allergies: No Known Allergies Date Verified:05/19/18 Lab Values No results within the last 30 days for the following basenames: K,HCT No progress notes entered within the past 30 days HISTORY AND PHYSICAL Observed: 05/16/2018 Status: F Source: [place] EXAM 11:00 AM [facility] REPOSITORY [facility] Medical Records Department [address] [place] [id number] History and Physical 05/15/18 0353 MR#: [id number] Acct: [id number] Name: ELIA WESTON Rep #: [id number] : 1980 38 From: Lg Krishnan MD PCP: Avinash Banda MD Status: ADM IN Y Location: [place] [id number] ADDENDUM by Lg Krishnan MD on 05/16/18 at 1059 Code Visit hpi- CTA chest done at emergency department was a limited study because of a poor timing secondary to patient's anatomy. However the chest x-ray showed multiple areas concerning for pulmonary emboli versus artifact. corrected to : CTA chest done at emergency department was a limited study because of a poor timing secondary to patient's anatomy. However the chest CTA showed multiple areas concerning for pulmonary emboli versus artifact. 05/16/18 1100 <Electronically signed by Lg Krishnan MD> Date Lg Krishnan MD cc: Avinash Banda MD; Lg Krishnan MD * Signed Problem List (1) Pulmonary embolism Status: Suspected (2) Dyspnea Status: Acute (3) Chest pain Status: Acute Qualifiers: Chest pain type: unspecified Qualified Code(s): R07.9 - Chest pain, unspecified History of Present Illness Date of Admission: 05/15/18 Chief Complaint: Chest pain, shortness of breath, lightheadedness and weakness 3 days. The patient is a 38 year old M with a significant history of sleep apnea hypertension, end-stage renal disease (dialysis Tuesdays, and Saturdays), former smoker, previous blood clots in lungs, and previous blood clot in neck who presents with multifactorial symptoms of Chest pain, shortness of breath, lightheadedness, lethargy and weakness 3 days. He describes chest pain as heaviness on his chest; and some burning.. Chest pain increases with minimal exertion a chest. CTA chest done at emergency department was a limited study because of a poor timing secondary to patient's anatomy. However the chest x-ray showed multiple areas concerning for pulmonary emboli versus artifact. Patient was empirically started on heparin drip from the emergency department. Past Medical History Past Medical History (Chronic Problems): Chronic Problems (Last Reviewed 05/15/18 @ 06:49 by Lg Krishnan MD) Chronic pelvic pain in male (Chronic) Pelvic mass (Chronic) Hematuria (Chronic) Anemia of chronic disorder (Chronic) History of bacterial endocarditis (Chronic) Hypertension (Chronic) ESRD (end stage renal disease) (Chronic) Due to hypertension, On hemodialysis, TTS, followed by Dr. 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 Lives: Spouse/ Significant Other Smoking Status: Former smoker Alcohol: None - *Family History Maternal History Items: No pertinent history Review of Systems Constitutional: Reports: Weakness, Fatigue Eyes: Denies: Blurred vision, Pain HEENT: Reports: - - Lightheadedness. Denies: Dysphasia Cardiovascular: Reports: Chest Pressure, Palpitations Respiratory: Reports: Shortness of Breath. Denies: Cough, Shortness of breath at rest, Sputum production Gastrointestinal: Denies: Abdominal Pain, Nausea, Vomiting Genitourinary: Reports: Dysuria Musculoskeletal: Denies: Joint Pain, Joint Tenderness Skin: Denies: Rash, Wounds Neurological: Denies: Numbness, Tingling, Focal weakness Psychiatric: Denies: Anxiety, Depression, Homicidal Ideations, Suicidal Ideations Hematologic/ Lymphatic: Denies: Easy Bruising, Easy Bleeding VTE Information - Inpt Only VTE Present on Admission: No VTE Mechan Device Prophylaxis: None VTE Pharm Prophylaxis ordered?: No Reason prophylaxis not ordered:: Medical Contraindication - On treatment dose heparin for suspected PE. VTE Suspected: Suspected PE Patient Problems: Active and Suspected Problems (Last Reviewed 05/15/18 @ 06:49 by Lg Krishnan MD) Junctional tachycardia (Acute) Dyspnea (Acute) Pulmonary embolism (Suspected) Chest pain (Acute) - Physical Exam General: Alert, Oriented x3, Cooperative HEENT: Atraumatic, PERRLA, EOMI, Normocephalic Neck: Supple, No JVD, Negative Carotid Bruits Lungs: Clear to auscultation, Normal air movement, - - Tender chest Cardiovascular: Regular rate Abdomen: Bowel Sounds Present, Soft, Non Tender Extremities: - - Left forearm with dialysis device positive bruit and thrill. Skin: No rashes, No breakdown Musculoskeletal: No Tenderness to Palpation of Joints or Extremities Neurological: Cranial nerves II-XII grossly intact Psych/Mental Status: Appropriate Vital Signs Temp Pulse Resp BP Pulse Ox 98.2 F 100 16 95/71 100 05/15/18 01:15 05/15/18 03:28 05/15/18 03:28 05/15/18 03:28 05/15/18 03:28 Oxygen Delivery Method Room Air Weight: 130.9 kg Body Mass Index (BMI) 40.2 Laboratory Tests Past 24 Hrs Assessment/Plan All Active Problems (Last Reviewed 05/15/18 @ 06:49 by Lg Krishnan MD) Junctional tachycardia (Acute) Dyspnea (Acute) Acute viral bronchitis (Acute) Chest pain, musculoskeletal (Acute) Chest pain (Acute) The patient is a 38 year old M with a significant history of hypertension, end-stage renal disease (dialysis Tuesdays, and Saturdays), former smoker, previous blood clots in lungs, and previous blood clot in neck who presents with multifactorial symptoms of Chest pain, shortness of breath, lightheadedness, lethargy; weakness and radiographic findings of a possible segmental and sub-segmental pulmonary embolism. Chest pain, dyspnea, weakness; shortness of breath and lightheadedness Differential diagnoses include PE, myocarditis, bacteremia in this dialysis patient; acute coronary syndrome, severe central venous stenosis found on CT; hypothyroidism EKG showed Q waves in V1 through V4. Heparin drip continued VQ scan ordered Serial troponin Aspirin 325mg 1 and 80 mg daily; Echocardiogram ordered Blood culture 2 Percocet for pain Will consult cardiology Hypertension Coreg continued End-stage renal disease Patient receive a contrast and is not due for dialysis until about 36 hours after contrast. Nephrology consult Renal diet Sensipar continued Sevelamer continued Bilateral thyroid calcifications Ultrasound of thyroid ordered. Pulmonary nodule Patient to follow up longitudinally with CT. DVT prophylaxis Not indicated patient The patient on heparin drip. Code Visit Inpatient E AND M: 16116 Init Hosp L3 05/15/18 0715 <Electronically signed by Lg Krishnan MD> Date Lg Krishnan MD Cosigner Signature: Date (if applicable) CC: Avinash Banda MD; Lg Krishnan MD Signed DISCHARGE SUMMARY Observed: 05/16/2018 Status: F Source: NAJMA 10:47 AM [facility] Medical Records Department [address] [place] [address] Discharge Summary 05/16/18 1029 MR#: [id number] Acct: [id number] Name: ELIA WESTON Rep #: [id number] : 1980 38 From: Harris Pope MD PCP: Avinash Banda MD Status: ADM IN Y Location: [place] [address] Discharge Date and Diagnosis - Problem List Patient Problems: Active and Suspected Problems (Last Reviewed 05/15/18 @ 06:49 by Lg Krishnan MD) Junctional tachycardia (Acute) Dyspnea (Acute) Pulmonary embolism (Suspected) Chest pain (Acute) Date of Admission: 05/15/18 Date of Discharge: 05/16/18 - Primary Discharge Diagnosis Active and Suspected Problems (Last Reviewed 05/15/18 @ 06:49 by Lg Krishnan MD) Junctional tachycardia (Acute) Dyspnea (Acute) Pulmonary embolism (Suspected) Chest pain (Acute) - Secondary Discharge Diagnosis Chronic Problems (Last Reviewed 05/15/18 @ 06:49 by Lg Krishnan MD) Chronic pelvic pain in male (Chronic) Pelvic mass (Chronic) Hematuria (Chronic) Anemia of chronic disorder (Chronic) History of bacterial endocarditis (Chronic) Hypertension (Chronic) ESRD (end stage renal disease) (Chronic) Due to hypertension, On hemodialysis, TTS, followed by Dr. Goncalves Morbidly obese (Chronic) Sleep apnea (Chronic) 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 due to renal insufficiency (Chronic) Hospital Course and Treatment Imaging Results: CTA Chest: IMPRESSION: Evaluation is limited for pulmonary embolism due to bolus timing as well as patient's body habitus and upper extremities being down during the examination. There are multiple areas which would be concerning for pulmonary emboli versus artifact. Within the left lower lobe there is a segmental and right lower lobe subsegmental pulmonary artery which is higher in concern for a pulmonary embolism. Recommend correlation with either nuclear medicine ventilation perfusion study or repeat CT angiogram with improved bolus timing. There is no pulmonary embolism identified within the main pulmonary artery or the right or left main pulmonary arteries. Severe Central venous stenosis with innumerable venous collaterals. This likely is the reason for bolus timing. A lower extremity approach injection may be more beneficial. Recommend nonemergent thyroid ultrasound. Right upper lobe new pulmonary nodule. Recommend 6 month follow-up CT scan for stability. V/Q scan: IMPRESSION: 1. NORMAL 99m Tc MAA pulmonary perfusion imaging examination, according to PIOPED II interpretive criteria. (Soerica et al, Radiology 246: 941, 2008 Soerica et al, J Nucl Med 49: 1741, 2008). 2. Central clumping of the aerosol may be secondary to obstructive airway mechanics and or clinical tachypnea. Thyroid US: RIGHT LOBE: The right lobe of the thyroid gland measures 5.1 x 1.9 x 1.8 cm. There is a heterogeneous echotexture. There are no demonstrated solid, cystic or complex lesions. LEFT LOBE: The left lobe of the thyroid gland measures 4.6 x 2.2 x 2.0 cm. There is a heterogeneous echotexture. There are no demonstrated solid, cystic or complex lesions. ISTHMUS: The isthmus measures 6 mm. The regional lymph nodes are normal. Consults: Nephrology Cardiology Operations: None Procedures: Stress test - EKG Data Baseline ECG demonstrates normal sinus rhythm with a rate of 108 beats per minute. The patient was titrated from 10 mcg to a maximum of 40 mcg of dobutamine during the stress. The maximum heart rate attained was 164 beats per minute. This was 89% of maximum predicted heart rate. During dobutamine infusion, there were no ST or T wave changes noted to suggest ischemia. At peak infusion, upsloping ST changes only were noted, which did not meet the criteria for ischemia. The peak blood pressure was 120/43. Interpretation Summary The peak blood pressure was 120/43. Normal resting LV systolic function. Nonstenotic valves. With stress, the LV size decreased and all segments augmented normally. The LVEF increased from 65% to 75%. Negative for ischemia at89% of MPHR and at 1 METS. Chamber obliteration was noted with no wall motion abnormalities. Normal stress echo Summary of Care Provided: HPI: The patient is a 38 year old M with a significant history of sleep apnea hypertension, end-stage renal disease (dialysis Tuesdays, and Saturdays), former smoker, previous blood clots in lungs, and previous blood clot in neck who presents with multifactorial symptoms of Chest pain, shortness of breath, lightheadedness, lethargy and weakness 3 days. He describes chest pain as heaviness on his chest; and some burning.. Chest pain increases with minimal exertion a chest. CTA chest done at emergency department was a limited study because of a poor timing secondary to patient's anatomy. However the chest x-ray showed multiple areas concerning for pulmonary emboli versus artifact. Patient was empirically started on heparin drip from the emergency department. General: Alert, Oriented x3, Cooperative HEENT: Atraumatic, EOMI, Normocephalic Neck: Supple, No JVD Lungs: CTAB no wrrc Cardiovascular: RRR no mrg Abdomen: s, nt,nd,ng Skin: No rashes, No breakdown Psych/Mental Status: Appropriate Hospital Course 1. Dyspnea/Chest pain/ESRD - Initially there was some concern that this was d/t a PE. He had a CTA in the ER that was inconclusive. He had a aVQ scan that was negative. The CTA chest did indicate a pulmonary nodule that would need follow-up as an outpatient in 6 months and this was discussed with the patient. Cardiology was consulted for the chest pain as well. Troponins were serially negative and the dobutamine stress echo was also normal and rules out ischemia. Intially he was hypotensive and slightly tachycardic. We discussed this with his outpatient dialysis company and they said that he can vary wildly in his BP but his HR is usually around 100. They removed 4 L on his dialysis treatment the day prior to admission so he was given gentle hydration with the plan to have 1 liter removed at dialysis today after discharge. He states that his pain is improved today without any significant intervention. Will dc home with outpatient dialysis and PCP follow-up. A baby aspirin was added to his medication regimen given his comorbidities. 2. His other diagnoses were assessed and his home meds were continued where appropriate. Vital Signs 05/16/18 07:00 106 H 100 05/16/18 06:59 97.8 F 102 H 18 123/67 H 94 Discharge Activity: Return to Normal Activity Call your doctor if you observe: Fever of 101 or Higher, Shortness of breath, Chest pain, Increased palpitations (irregular heartbeat) Home Medications: Medications to take at Discharge cinacalcet 60 mg tablet 60 mg PO TUTHSA 10/10/17 sevelamer carbonate 800 mg tablet 800 mg PO TID 10/10/17 Carvedilol [Coreg (Beta Yossi)] 1 tab PO BID 01/08/18 Ferric Citrate [Auryxia] 3 tab PO TIDCM 05/15/18 Aspirin [Aspirin, Baby] 81 mg PO DAILY@0800 #30 tab.chew 05/16/18 Following Prescrptions Were Given to Patient: Aspirin [Aspirin, Baby] 81 mg PO DAILY@0800 #30 tab.chew Primary Care Physician: Avinash Banda MD [Primary Care Provider] - Please follow up with your Primary Care Physician in: in 3- 5 days Disposition: Home Minutes spent on discharge:: 37 Patient Condition:: Stable Medical Necessity - Tobacco Use Smoking Status: Former smoker Meaningful Use Info Meaningful Use Diagnoses (Choose all that apply): None applicable Code Visit Inpatient E AND M: [id number] Disch Hosp 05/16/18 1047 <Electronically signed by Harris Pope MD> Date Harris Pope MD Cosigner Signature (if applicable): Date CC: Avinash Banda MD; Harris Pope MD Signed DISCHARGE INSTRUCTION Observed: 05/16/2018 Status: F Source: [facility] 10:24 AM [facility] Medical Records Department [address] [place] [address] Instructions for Home/Discharge Instructions 05/16/18 1022 MR#: [id number] Acct: [id number] Name: ELIA WESTON Rep #: [id number] : 1980 38 From: Harris Pope MD PCP: Avinash Banda MD Status: ADM IN - Discharge Diagnoses Current Active Problems: Current Active and Chronic Problems (Last Reviewed 05/15/18 @ 06:49 by Lg Krishnan MD) Junctional tachycardia (Acute) Dyspnea (Acute) ESRD (end stage renal disease) (Chronic) Due to hypertension, On hemodialysis, TTS, followed by Dr. Goncalves Chest pain (Acute) You will use the following diet at home:: Renal (restricted protein/sodium) Your food should be the consistency of: Regular Your liquids should be the consistency of: Regular/Thin Discharge Activity: Return to Normal Activity Call your doctor if you observe: Fever of 101 or Higher, Shortness of breath, Chest pain, Increased palpitations (irregular heartbeat) Allergies/Adverse Reactions: Allergies No Known Allergies Allergy (Verified 05/15/18 01:18) Medications to take at Discharge cinacalcet 60 mg tablet 60 mg PO TUTHSA 10/10/17 sevelamer carbonate 800 mg tablet 800 mg PO TID 10/10/17 Carvedilol [Coreg (Beta Yossi)] 1 tab PO BID 01/08/18 Ferric Citrate [Auryxia] 3 tab PO TIDCM 05/15/18 Aspirin [Aspirin, Baby] 81 mg PO DAILY@0800 #30 tab.chew 05/16/18 The following prescriptions were given: Aspirin [Aspirin, Baby] 81 mg PO DAILY@0800 #30 tab.chew Primary Care Physician: Avinash Banda MD [Primary Care Provider] - Please follow up with your Primary Care Physician in: in 3- 5 days Test Results: Test results from this visit will be discussed in further detail at your follow-up appointment, if applicable. 05/16/18 1024 <Electronically signed by Harris Pope MD> Date Harris Pope MD CC: Jolynn Griffin MD; Nnamdi Moreno MD; Avinash Banda MD CONSULTATION Observed: 05/15/2018 Status: F Source: [facility]UMP 6:24 PM [facility] Medical Records Department [address] [place] [address] Consultation 05/15/18 1819 MR#: [id number] Acct: [id number] Name: ELIA WESTON Rep #: [id number] : 1980 38 From: Nnamdi Moreno MD PCP: Avinash Banda MD Status: ADM IN Location: [place] [address]1 Reason for Consult Date of Consultation: 05/15/18 Reason for Consultation: Chest pain. History of Present Illness: The patient is a 38 year old M with a significant history of sleep apnea hypertension, end-stage renal disease (dialysis Tuesdays, and Saturdays), former smoker, previous blood clots in lungs, and previous blood clot in neck who presents with multifactorial symptoms of Chest pain, shortness of breath, lightheadedness, lethargy and weakness 3 days. He describes chest pain as heaviness on his chest; and some burning.. Chest pain increases with minimal exertion a chest. CTA chest done at emergency department was a limited study because of a poor timing secondary to patient's anatomy. However the chest x-ray showed multiple areas concerning for pulmonary emboli versus artifact. Patient was empirically started on heparin drip from the emergency department. Cardiology was asked to see him because of the chest discomfort. While on the telemetry unit he did not appear to have any chest discomfort. An EKG that was done demonstrated a junctional rhythm versus sinus tachycardia with a very prolonged first-degree AV block. Past Medical History Allergies/Adverse Reactions: Allergies No Known Allergies Allergy (Verified 05/15/18 01:18) Home Medications: Ambulatory Orders Medication Instructions Recorded cinacalcet 60 mg tablet 60 mg PO TUTHSA 10/10/17 Past Medical History (Chronic Problems): Chronic Problems (Last Reviewed 05/15/18 @ 06:49 by Lg Krishnan MD) Chronic pelvic pain in male (Chronic) Pelvic mass (Chronic) Hematuria (Chronic) Anemia of chronic disorder (Chronic) History of bacterial endocarditis (Chronic) Hypertension (Chronic) ESRD (end stage renal disease) (Chronic) Due to hypertension, On hemodialysis, TTS, followed by Dr. 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 - *Family History Maternal History Items: No pertinent history Lives: Spouse/ Significant Other Smoking Status: Former smoker Alcohol: None Review of Systems - Review of Systems General: Denies: Fever, Night Sweats, Fatigue Cardiovascular: Denies: Chest Discomfort, Shortness of Breath, Orthopnea, PND, Peripheral Edema, Palpitations, Lightheadedness, Dizziness, Near Syncope, Syncope Respiratory: Denies: Cough, Sputum Production, Hemoptysis Gastrointestinal: Denies: Hematemesis, Hematochezia, Melena Genitourinary: Denies: Dysuria, Hematuria Skin: Denies: Rash Subjectve: Young man in no apparent distress Objective: Vital Signs Temp Pulse Resp BP Pulse Ox 97.8 F 96 20 H 97/40 L 100 05/15/18 16:30 05/15/18 16:30 05/15/18 16:30 05/15/18 16:30 05/15/18 16:30 Oxygen Flow Rate (L/min) 2 Oxygen Delivery Method Room Air Weight: 284 lb 9.868 oz Body Mass Index (BMI) 39.6 Intake and Output for Last 24 Hours Intake Total 1442 / 1442 Balance 1442 / 1442 General: Awake, Alert, Oriented x 3 HEENT: PERRL, EOMI, Sclera Non Icteric Neck: Supple, Good ROM, No Lymph Node Enlargement Lungs: Clear to auscultation Cardiovascular: Regular Rhythm, Normal S1, Normal S2, No Murmurs, No Rubs, No Gallops Vascular: No Carotid Bruits, Normal Femoral Pulses, Normal Radial Pulses, Normal Dorsalis Pedal Pulse, Normal Posterior Tibial Pulses Abdomen: Bowel Sounds Present, Soft, Non Tender, No HSM, No Organomegaly Extremities: No Cyanosis, No Clubbing, No edema Neurological: No Focal Motor or Sensory Deficit 05/15/18 06:35: Troponin I < 0.015 05/15/18 12:10: Troponin I < 0.015 05/15/18 12:10: APTT 33.8 Rhythm: EKG: Junctional rhythm with a rate of 108 bpm. ECHO: Preserved left ventricular systolic function estimated ejection fraction of 60-65%. Assessment/Plan 1. Chest pain. Patient presented with chest pain which is somewhat atypical with no EKG changes. My recommendation was for him to undergo a stress test in the form of a dobutamine echocardiogram. This was performed and demonstrated no wall motion abnormalities at an appropriate heart rate. Based on the above findings my recommendation is that it does not appear that this appears to be coronary in origin and he should be treated for noncoronary etiologies. * At this time I would not recommend making any different changes to his medications. * * Thank you for allowing me to participate in the care of your patient. Please don't hesitate to call if any issues arise 05/15/18 726 <Electronically signed by Nnamdi Moreno MD> Date Nnamdi Moreno MD Cosigner Signature (if applicable): Date CC: Jolynn Griffin MD; Nnamdi Moreno MD; Avinash Banda MD Signed STRESS TEST ECHO W/O Observed: 05/15/2018 Status: F Source: NAJMA CONTRAST 5:31 PM [facility] Cardiovascular Services [address] [place] [address] Stress Test Echo w/o Contrast MR#: [id number] Acct: [id number] Name: ELIA WESTON Rep #: [id number] : 1980 38 From: Nnamdi Moreno MD Primary Care: Avinash Banda MD Status: ADM IN Ordering Dr: Nnmadi Moreno MD Sex: M AA Reason For Study: Chest Pain Stress Results Protocol: Dobutamine Stress Echo Maximum Predicted HR: 184 bpm Target HR: 156 bpm% Maximum Pre dicted HR: 87 % DurationHeart Rate Stage (mm:ss) (bpm) BPCo mment Baseline 103 90/56 3/10 Chest Pain DSE 10 MCG 3:30 10 4 93/543/10 Chest Pain DSE 20 MCG 3:00 11 4 90/503/10 Chest Pain DSE 30 MCG 3:00 13 0 97/533/10 Chest Pain DSE 40 MCG 4:31 16 0 83/543/10 Chest Pain; Atropine 0.75 MG IVP Recovery 130 92/50 3/10 Chest Pain Stress Duration: 14:01 mm:ss Maximum Stress HR: 160 bpmME TS: 1 Baseline Echocardiogram Findings Stress Echo Wall motion Data Resting WMIntermediate WMStress WM Resting Wall Motion Wall Motion Stress No regional wall motion No regional wall motion abnormalities noted. abnormalities noted. Ejection Fraction 65 %. Ejection Fraction 75 %. EKG Data Baseline ECG demonstrates normal sinus rhythm with a rate of 108 beats per minute. The patient was titrated from 10 mcg to a maximum of 40 mcg of dobutamine during the stress. The maximum heart rate attained was 164 beats per minute. This was 89% of maximum predicted heart rate. During dobutamine infusion, there were no ST or T wave changes noted to suggest ischemia. At peak infusion, upsloping ST changes only were noted, which did not meet the criteria for ischemia. The peak blood pressure was 120/43. Interpretation Summary The peak blood pressure was 120/43. Normal resting LV systolic function. Nonstenotic valves. With stress, the LV size decreased and all segments augmented normally. The LVEF increased from 65% to 75%. Negative for ischemia at89% of MPHR and at 1 METS. Chamber obliteration was noted with no wall motion abnormalities. Normal stress echo Ordering Physician: Nnamdi Moreno Referring Physician: Nnamdi Moreno Performed By: Olivia Norris RDCS 05/15/18 1730 Date Nnamdi Moreno MD CC: Nnamdi Moreno MD; Avinash Banda MD; Harris Pope MD Date Dictated: 05/15/18901 Date Transcribed: 05/15/181729 Brick Chimney Supervisor: Signed CONSULTATION Observed: 05/15/2018 Status: F Source: [facility] 2:09 PM [facility] Medical Records Department [address] [place] [address] Consultation 05/15/18 3189 MR#: [id number] Acct: [id number] Name: ELIA WESTON Rep #: [id number] : 1980 38 From: Jolynn Griffin MD PCP: Avinash Banda MD Status: ADM IN Location: [address] Problem List (1) ESRD (end stage renal disease) Status: Chronic Comment: Due to hypertension, On hemodialysis, TTS, followed by Dr. Goncalves Consultation - Renal PCP/ Referring MD: Requesting physician: [] Primary care physician: Avinash Banda MD - History of Present Illness History of Present Illness: The patient is a 38 year old M past medical history of end- stage renal disease on Friday and Friday hemodialysis schedule ., Obstructive sleep apnea , history of PE . Patient presented with chest pain , shortness of breath , and lightheadedness for the last 3 days . Chest x-ray so possible bilateral pulmonary emboli. Blood pressure was found to be low to at 90/40 . Patient was admitted for PE treatment . Currently on heparin drip . VQ scan is negative for PE . Echocardiogram showed ejection fraction 70% along with severe concentric LVH . Had last hemodialysis session yesterday with 3-4 L ultrafiltration as per the patient . Patient still feeling shortness of breath with exertion along with chest pain and lightheadedness . Currently on IV fluid normal saline at 100 cc/h . Review of system : 12 system review is negative except what mentioned in the HPI [] - Allergies Allergies: Allergies No Known Allergies Allergy (Verified 05/15/18 01:18) - Current Medications Current Medications: Current Medications Acetaminophen (Tylenol) 650 mg PO Q6H PRN PRN PRN Reason: Mild Pain (scale 0-3)/T>100.7 Aspirin (Aspirin, Baby) 81 mg PO DAILY@0800 [facility] Carvedilol (Coreg) 3.125 mg PO BID [facility] Last Admin: 05/15/18 12:50 Dose: 3.125 mg Cinacalcet (Sensipar) 60 mg PO TUTHSA [facility]ous [facility] Heparin Sodium (Porcine) (Heparin Na) 0 unit IV UD PRN PRN Reason: Protocol Last Admin: 05/15/18 12:53 Dose: 3,000 unit Heparin Sodium/Dextrose () 25,000 units in 250 mls @ 17 mls/hr IV .[id number] [facility]; As Directed PRN Reason: Protocol Last Admin: 05/15/18 04:32 Dose: 17 mls/hr Sodium Chloride () 1,000 mls @ 100 mls/hr IV .Q10H [facility] Last Admin: 05/15/18 08:19 Dose: 100 mls/hr Magnesium Hydroxide (Milk Of Magnesia) 30 ml PO DAILY PRN PRN Reason: Constipation Ondansetron HCl (Zofran) 4 mg IV Q8H PRN PRN PRN Reason: Nausea Oxycodone HCl (Oxyir) 5 mg PO Q4H PRN PRN PRN Reason: Moderate Pain (pain scale 4-5) Last Admin: 05/15/18 12:57 Dose: 5 mg Sevelamer Carbonate (Renvela) 800 mg PO TIDCM [facility] Sodium Chloride () 5 - 30 ml IV UD PRN PRN Reason: SALINE FLUSH - Past Medical History Past Medical History (Chronic Problems): Chronic Problems (Last Reviewed 05/15/18 @ 06:49 by Lg Krishnan MD) Chronic pelvic pain in male (Chronic) Pelvic mass (Chronic) Hematuria (Chronic) Anemia of chronic disorder (Chronic) History of bacterial endocarditis (Chronic) Hypertension (Chronic) ESRD (end stage renal disease) (Chronic) Due to hypertension, On hemodialysis, TTS, followed by Dr. 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 - Social History Smoking Status: Former smoker Alcohol: None - Family History Maternal History Items: No pertinent history Patient Problems: Active and Suspected Problems (Last Reviewed 05/15/18 @ 06:49 by Lg Krishnan MD) Junctional tachycardia (Acute) Dyspnea (Acute) Pulmonary embolism (Suspected) Chest pain (Acute) - Physical Exam General: Alert, Oriented x3 HEENT: Atraumatic Oral: Moist Mucosa Neck: Supple, No JVD Lungs: Clear to auscultation, Normal air movement, No rhonchi, No wheeze Cardiovascular: Tachycardic, - Abdomen: Bowel Sounds Present, Soft, Non Tender Extremities: No clubbing, No cyanosis, No edema Lymphatic: No Cervical, Supraclavicular, or Inguinal Adenopathy Neurological: Cranial nerves II-XII grossly intact, Neuro grossly intact Vital Signs Temp Pulse Resp BP Pulse Ox 98.0 F 114 H 20 H 91/42 L 96 05/15/18 11:30 05/15/18 11:30 05/15/18 11:30 05/15/18 11:30 05/15/18 11:30 Oxygen Flow Rate (L/min) 2 Oxygen Delivery Method Room Air Weight: 129.1 kg Body Mass Index (BMI) 39.6 Intake and Output for Last 24 Hours Intake Total 427 / 427 Balance 427 / 427 Laboratory Tests Past 24 Hrs APTT Troponin I < 0.015 < 0.015 TSH 3.70 APTT 33.8 Troponin I TSH Assessment/Plan All Active Problems (Last Reviewed 05/15/18 @ 06:49 by Lg Krishnan MD) Junctional tachycardia (Acute) Dyspnea (Acute) Acute viral bronchitis (Acute) Chest pain, musculoskeletal (Acute) Chest pain (Acute) 1-end-stage renal disease on hemodialysis. Patient on Friday and Friday hemodialysis schedule. 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 Last hemodialysis session May 14 with 3-4 liters of ultrafiltration. I will arrange for hemodialysis tomorrow as per the chronic order. Will limit ultrafiltration 1 L tomorrow given the low blood pressure. 2-anemia. Hemoglobin 12.5. No need for ANABELLA from nephrology standpoint. 3-bone mineral disease. Please continue the same dose of sevelamer and Sensipar. We will check phosphorus level and PTH and outpatient hemodialysis unit. 4-hypotension: Echocardiogram showed severe concentric LVH with normal EF. Hypotension may be due to decreased preload due to severe LVH and tachycardia. Patient might benefit from lowering heart rate. Cardiology service is following. Limit ultrafiltration to 1 L tomorrow 5-chest pain and shortness of breath along with tachycardia. VQ scan is negative for PE. Still on heparin drip. I will defer the management to the primary service and cardiology service. Renal team will continue to follow. Plan of care was discussed with Dr. Harris Griffin MD [phone] 05/15/18 3907 <Electronically signed by Jolynn Griffin MD> Date Jolynn Griffin MD Cosigner Signature (if applicable): Date CC: Jolynn Griffin MD; Nnamdi Moreno MD; Avinash Banda MD Signed TROPONIN-I Collected: 05/15/2018 Status: F Source: NAJMA 12:10 PM [facility] REPOSITORY Order Comment: PT WENT FOR STRESS TEST FWC WHEN PT RETURNS. 'TROP' Serial specimen #1, #2 or #3: 2 TYPE CODE TESTS RESULT OUT OF RANGE REFERENCE UNITS LAB L501.4010 <0.045 ng/mL Normal < 0.015 TROPONIN-I Result Comment: TROPONIN-I EXPECTED VALUES <0.045 Negative 0.045 - 0.590 Consistent with Cardiac Damage > OR = 0.600 Critical Value Not every elevated troponin is indicative of LA. These values should be used with clinical judgement in examining the patient's clinical picture for diagnosis. To establish a diagnosis of LA versus myocardial injury, there must be a demonstrated rise and/or fall in the troponin values, in addition to ischemic symptoms, EKG changes, new regional wall motion abnormality, and/or angiographical evidence. PLEASE NOTE: REFERENCE RANGES EDITED 18 Performed By: #### L501.4010 #### [facility] [address] [place], [place], [address] PARTIAL THROMBOPLAST Collected: 05/15/2018 Status: F Source: NAJMA TIME 12:10 PM [facility] REPOSITORY Order Comment: PT IN STRESS TEST FWC WHEN PT RETURNS. TYPE CODE TESTS RESULT OUT OF RANGE REFERENCE UNITS LAB L300.4310 24.1-36.2 Seconds Normal PTT 33.8 Performed By: #### L300.4310 #### [facility] [address] [place], [address] Observed: 05/15/2018 Status: F Source: NAJMA CULTURE, BLOOD (WB) 12:10 PM [facility] REPOSITORY PT WENT FOR STRESS TEST FWC WHEN PT RETURNS. BC No growth in 5 days. Performed By: #### M200.1000 #### [facility] [address] [place], [address] ECHOCARDIOGRAM COMPLETE Observed: 05/15/2018 Status: F Source: CRUMP 10:34 AM [facility] REPOSITORY [facility] Cardiovascular Services [address] [place] [address] Echo Complete 05/15/18 0948 MR#: [id number] Acct: [id number] Name: ELIA WESTON Rep #: [id number] : 1980 38 From: Nnamdi Moreno MD Attending Dr: Harris Pope MD Status: ADM IN Ordering Dr: Lg Krishnan MD Date: 05/15/18 Location: [facility] Sex: M AA Admitted: 05/15/18 Reason For Study: Chest pain Procedure This was a 2D Doppler, Color Flow transthoracic echocardiogram. Exam performed in department. Left Ventricle Normal LV size. Severe concentric left ventricular hypertrophy. Left ventricular systolic function is normal. The estimated ejection fraction is 70 %. Unable to assess diastolic dysfunction due to arrhythmia. No regional wall motion abnormalities noted. Right Ventricle Normal RV size. Normal systolic function. Atria The left atrium is moderately enlarged. Normal right atrium. Mitral Valve There is severe mitral annular calcification. Severe focal mitral valve calcification of the posterior leaflet. Tricuspid Valve Normal tricuspid valve. Mild (1+) tricuspid valve insufficiency. Pulmonary artery systolic pressure is 26 mmHg. Aortic Valve Normal aortic valve. Trisinus/trileaflet aortic valve. Pulmonic Valve Normal pulmonic valve. Great Vessels Normal aortic root. The pulmonary artery is normal size. Normal inferior vena cava. Pericardium/Pleural No pericardial effusion. MMode/2D Measurements AND Calculations LVIDd: 2.7 cm IVSd: 1.6 cm Ao root diam: 2.7 cm LVIDs: 1.5 cm LVPWd: 1.6 cm LA dimension: 3.9 cm RVDd: 3.2 cm FS: 44.8 % LAV(MOD-bp): 81.4 ml LA A4 area: 27.2 cm2 RA A4 area: 14.4 cm2 LAV(MOD-bp) Indexed: 33.3 ml/m2 LAV(MOD-sp2): 49.8 ml LAV(MOD-sp4): 98.6 ml Doppler Measurements AND Calculations MV E max george: 142.9 cm/sec MV V2 max: 164.0 cm/sec Ao V2 max: 131.6 cm/sec MV max P.8 mmHg Ao max P.9 mmHg MV V2 mean: 124.7 cm/sec MV mean P.7 mmHg MV V2 VTI: 23.7 cm LV V1 max: 109.6 cm/sec PA V2 max: 82.7 cm/sec TR max george: 242.6 cm/sec LV V1 max P.8 mmHg TR max P.5 mmHg Interpretation Summary Unable to assess diastolic dysfunction due to arrhythmia. Normal LV size. Severe concentric left ventricular hypertrophy. Left ventricular systolic function is normal. The estimated ejection fraction is 70 %. No regional wall motion abnormalities noted. Ordering Physician: Lg Krishnan Referring Physician: Avinash Banda Performed By: Olivia Norris RDCS 05/15/18 1033 Date Nnamdi Moreno MD CC: Avinash Banda MD; Lg Krishnan MD; Harris Pope MD Date Dictated: 05/15/18 0948 Date Transcribed: 05/15/18 1033 Brick Chimney Supervisor: Signed Observed: 05/15/2018 Status: F Source: CRUMP CULTURE, BLOOD (WB) 7:25 AM [facility] REPOSITORY BC No growth in 5 days. Performed By: #### M200.1000 #### [facility] [address] [place], [address] THYROID Observed: 05/15/2018 Status: F Source: NAJMA 7:14 AM [facility] REPOSITORY [facility] Imaging Services [address] [place] [address] Thyroid MR#: [id number] Acct: [id number] Name: ELIA WESTON Javier Rep #: [id number] : 1980 M 38 From: Shlomo Taylor DO PCP: Avinash Banda MD Status: ADM IN Study: Thyroid Date of Exam: 05/15/18 Exam# [id number] Ordering Dr: Lg Krishnan MD STUDY: THYROID ULTRASOUND REASON FOR EXAM: Male, 38 years old. Thyroid nodule. Findings seen on CT TECHNIQUE: Ultrasound evaluation of the thyroid was performed with real-time and static mcginnis-scale imaging. COMPARISON: CTA chest dated earlier today FINDINGS: RIGHT LOBE: The right lobe of the thyroid gland measures 5.1 x 1.9 x 1.8 cm. There is a heterogeneous echotexture. There are no demonstrated solid, cystic or complex lesions. LEFT LOBE: The left lobe of the thyroid gland measures 4.6 x 2.2 x 2.0 cm. There is a heterogeneous echotexture. There are no demonstrated solid, cystic or complex lesions. ISTHMUS: The isthmus measures 6 mm. The regional lymph nodes are normal. US/Thyroid IMPRESSION: Heterogeneous echotexture bilaterally. No evidence of thyroid nodules or calcifications. Electronically Signed: Shlomo Taylor at 21:07 EDT Tel , Service support , CC: Avinash Banda MD; Lg Krishnan MD Brick Chimney Supervisor: Signed THYROID STIM HORMONE Collected: 05/15/2018 Status: F Source: CRUMP (TSH) 6:35 AM [facility] REPOSITORY TYPE CODE TESTS RESULT OUT OF RANGE REFERENCE UNITS LAB L501.9520 0.358-3.74 uIU/mL Normal TSH 3.70 Performed By: #### L501.9520 #### [facility] [address] [place], [address] LUNG SCAN VENT/PERF Observed: 05/15/2018 Status: F Source: NAJMA 6:14 AM [facility] REPOSITORY [facility] Imaging Services [address] [place] [address] Lung Scan Vent/Perf MR#: [id number] Acct: [id number] Name: ELIA WESTON Rep #: [id number] : 1980 M 38 From: Don Avery PCP: Avinash Banda MD Status: ADM IN Study: Lung Scan Vent/Perf Date of Exam: 05/15/18 Exam# [id number] Ordering Dr: Lg Krishnan MD CLINICAL: 38-year-old male with reported history of chest discomfort and shortness of breath. VENTILATION-PERFUSION LUNG SCINTIGRAPHY COMPARISON: Plain film chest radiograph 05/15/2018, CTA of the chest report 05/15/2018 FINDINGS: The patient was administered 49.2 mCi 99m Tc DTPA aerosol. The aerosol ventilation study demonstrates relatively uniform ventilation defined throughout the bilateral lung page. Central clumping of the aerosol is noted in the bilateral hemithorax. Following the intravenous administration of 5.6 mCi of 99m Tc MAA the pulmonary perfusion study reveals uniform perfusion throughout both lung page. There are no segmental or subsegmental perfusion defects identified. There are no ventilation-perfusion mismatches observed. NM/Lung Scan Vent/Perf IMPRESSION: 1. NORMAL 99m Tc MAA pulmonary perfusion imaging examination, according to PIOPED II interpretive criteria. (Sotsman et al, Radiology 246: 941, 2008 Soerica et al, J Nucl Med 49: 1741, 2008). 2. Central clumping of the aerosol may be secondary to obstructive airway mechanics and or clinical tachypnea. Electronically Signed: Don Avery DO at 12:46 EDT Tel , Service support , CC: Avinash Banda MD; Lg Krishnan MD; Harris Pope MD Brick Chimney Supervisor: Signed EMERGENCY DEPARTMENT Observed: 05/15/2018 Status: F Source: CRUMP SUMMARY 4:15 AM [facility] REPOSITORY [facility] Medical Records Department [address] [place] [address] Emergency Department Summary 05/15/18 0135 MR#: [id number] Acct: [id number] Name: ELIA WESTON Rep #: [id number] : 1980 38 From: Dmitriy Lee MD PCP: Avinash Banda MD Status: ADM IN History of Present Illness Chief Complaint: Dizziness Informant: Patient Onset: Yesterday - night Context: Sudden Onset - while at rest last night Timing: Continuous Quality: heaviness substernal Location: chest. no radiation. Current Severity: Moderate Maximum Severity: Severe Worsened by: exertion, moving arms up. nonpleuritic. Relieved by: rest/remaining still Associated Symptoms: sob that is worse w/ exertion also. fluttering/racing HB. lightheadedness. Narrative: Patient does not recall having these symptoms before, but did have a pulmonary embolus a few years ago and he was concerned about recurrence. He does not recall if this discomfort is similar or not. He has no known heart or lung problems otherwise. He is on dialysis for end-stage renal disease due to uncontrolled hypertension, but he is on medications/treatment now. He gets dialysis 3 times weekly, on Tuesdays, , Saturdays, his last treatment was today around 10-11 hours ago, and he remembers specifically getting worse just after getting out of the dialysis chair noticing that he was feeling very generally weak and easier to get symptoms with light exertion than before dialysis. Discomfort has been continuous since last night and unrelenting, no worse with lying supine, with regards to his chest discomfort and dyspnea. When he would exert himself at times earlier today and his symptoms would get worse, that is when he would feel his heart racing and fluttering, it would improve with rest. No near syncope or syncope. With regards to his end-stage renal disease, he is an uric. He also states he has been having some issues with his left upper extremity fistula and is scheduled for a fistulogram in the near future. He is on no 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s except for the heparin that he gets during dialysis only. - Past Medical History (1) Anemia of chronic disorder Status: Chronic (2) ESRD (end stage renal disease) Status: Chronic Comment: Due to hypertension, On hemodialysis, TTS, followed by Dr. Goncalves (3) History of bacterial endocarditis Status: Chronic (4) 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 due to renal insufficiency Status: Chronic (5) Hypertension Status: Chronic (6) Sleep apnea Status: Chronic Past Medical History - Allergies and Home Meds Allergies/Adverse Reactions: Allergies No Known Allergies Allergy (Verified 05/15/18 01:18) Primary Care Physician: Avinash Banda MD [Primary Care Provider] - Surgical History: herniorrhaphy Smoking Status: Never smoker - Family History Maternal Family History: Reports: No pertinent history Review of Systems All systems negative except as indicated General: Reports: Malaise, - - Lightheadedness without near syncope or syncope Cardiovascular: Reports: Chest pain, Palpitations, Heart racing Respiratory: Reports: Dyspnea on exertion. Denies: Cough, Orthopnea, Paroxysmal nocturnal dyspnea Gastrointestinal: Denies: Abdominal pain, Nausea, Vomiting, Diarrhea, Melena, Hematochezia Genitourinary: Reports: - - Anuric Musculoskeletal: Denies: Neck pain, Back pain, Swelling, Extremity Pain Skin: Denies: Rash, Wounds Neurological: Denies: Headache, Weakness, Parasthesia, Numbness Physical Exam Vital Signs/Narrative: Vital Signs 05/15/18 01:15 98.2 F 103 H 16 104/66 100 Inital Vital Signs reviewed: Yes General: Well nourished, Well developed, Obese Head: Normocephalic, Atraumatic Eyes: Perrl, EOMI ENT: Moist mucous membranes, No rhinorrhea Neck: Supple, Nontender, No lymphadenopathy, No JVD Cardiovascular: Regular rate, Regular rhythm, No murmurs, Normal S1, Normal S2 Respiratory: No distress, CTA bilaterally, Chest nontender Abdomen: Soft, Nontender, Nondistended, Normal bowel sounds Back: Nontender, Normal Inspection Extremities: Nontender - Including negative Homans bilaterally, No edema Skin: Normal color, No rash Neurological: Alert, Oriented x3, Cranial nerves II-XII grossly intact, Normal Strength, Normal Sensation, Normal Gait Psychological: Normal affect Diagnostic/Tx/Re-eval Impressions Chest X-Ray 05/15/18 01:31 IMPRESSION: No acute cardiopulmonary disease. Electronically Signed: Kannan Greenberg, at 2:25 EDT Tel , Service support , Chest CTA 05/15/18 02:25 IMPRESSION: Evaluation is limited for pulmonary embolism due to bolus timing as well as patient's body habitus and upper extremities being down during the examination. There are multiple areas which would be concerning for pulmonary emboli versus artifact. Within the left lower lobe there is a segmental and right lower lobe subsegmental pulmonary artery which is higher in concern for a pulmonary embolism. Recommend correlation with either nuclear medicine ventilation perfusion study or repeat CT angiogram with improved bolus timing. There is no pulmonary embolism identified within the main pulmonary artery or the right or left main pulmonary arteries. Severe Central venous stenosis with innumerable venous collaterals. This likely is the reason for bolus timing. A lower extremity approach injection may be more beneficial. Recommend nonemergent thyroid ultrasound. Right upper lobe new pulmonary nodule. Recommend 6 month follow-up CT scan for stability. Other findings as discussed above. N.B. : The above information has been verbally conveyed by Kannan Greenberg to Dr. Lee, Referring Physician, on 05/15/2018 03:51:38 (ET). Electronically Signed: Kannan Greenberg, at 3:50 EDT Tel , Service support , 05/15/18 01:31 Chest PA and Lateral [RAD] Stat 05/15/18 02:25 CTA Chest W/WO Contrast [CT] Stat Laboratory Results - Rhythm Strip Rhythm Strip: Sinus Tach Rate: 113 Ectopy: PVC(s) - EKG Initial EKG Interpretation: No Acute Injury Pattern, Junctional - Tachycardia suspected, - - Diffuse peaked T waves. QRS narrow with right axis. - Medical Decision Making Patient has a persistent resting tachycardia with clear lungs, normal chest x-ray, elevated d-dimer, and the CT angiography shows the above findings, not able to rule out the possibility of a segmental or subsegmental pulmonary embolus, the radiologist told me that there were several abnormal areas that may or may not be pulmonary emboli although there was no central pulmonary embolus and no other secondary findings such as a pulmonary infarct. He has a persistent resting tachycardia. The EKG does not show any obvious P waves, making it appear to be a junctional tachycardia. If he is having a primary dysrhythmia, that could explain his symptoms as well. He has had the symptoms for over 24 hours and his troponin is negative, there is no ST segment deviation on the EKG. This part is reassuring. His other laboratory abnormalities are a result of chronic renal disease, he is not hyperkalemic. Given all this, I think it is reasonable to admit him to telemetry for further evaluation, including a VQ scan, possible cardiac consultation, and possible consult to nephrology given the fact that his dialysis is not due for approximately 36 hours after we gave the contrast bolus. The recommendation is for dialysis within [address] Krishnan, who agrees w/ admission to telemetry and heparin gtt. ED Disposition - Plan for ED Patient: Disposition: [facility] Chief Complaint: Dizziness Diagnosis: Junctional tachycardia, Chest pain, Dyspnea, ESRD (end stage renal disease) What to do if you have Problems For any increased pain, shortness of breath, bleeding, nausea or vomiting, chest pain, or any unexpected problems, contact your Primary Care Provider. Call [facility] ([phone]) or report to the closest Emergency Room. Call 911 if necessary. 05/15/18 0415 <Electronically signed by Dmitriy Lee MD> Date Dmitriy Lee MD Cosigner Signature (If Indicated): Date CC: Avinash Banda MD CTA CHEST W/WO Observed: 05/15/2018 Status: F Source: NAJMA CONTRAST 2:26 AM [facility] REPOSITORY [facility] Imaging Services [address] [place] [address] CTA Chest W/WO Contrast MR#: [id number] Acct: [id number] Name: ELIA WESTON Rep #: [id number] : 1980 M 38 From: Kannan Greenberg MD PCP: Avinash Banda MD Status: REG ER Study: CTA Chest W/WO Contrast Date of Exam: 05/15/18 Exam# [id number] Ordering Dr: Dmitriy Lee MD STUDY: CTA CHEST REASON FOR EXAM: Male, 38 years old. Chest pain shortness of breath RADIATION DOSAGE (If Supplied By Facility): CTDIvol = ( 30.06 ) mGy, DLP = ( 2894.49 ) mGycm TECHNIQUE: The examination was performed with the intravenous administration of 100ml ml of Isovue 370 contrast material. Post-processing of the angiographic images was performed, with multiplanar reformation and 3D reconstruction. Individualized dose optimization techniques were used for this CT. COMPARISON: January 21, 2017. FINDINGS: Evaluation limited by patient's body habitus. Again noted large number of venous collaterals within the soft tissues. There is severe central venous stenosis. Evaluation for pulmonary embolism is limited by bolus timing as well as artifact from patient's upper extremities and body habitus. There are multiple areas concerning for pulmonary emboli versus artifact. Atherosclerotic disease of the aorta. No aneurysm identified. Mitral annular valve calcifications. There is no demonstrated aortic dissection. Normal heart and pericardium. Bilateral thyroid calcifications and low attenuation recommend nonemergent thyroid ultrasound to further evaluate. Nonspecific subcentimeter short axis mediastinal and hilar lymph nodes are present. Atelectasis/scarring within the lungs. There is no focal consolidation. No pneumothorax. No pleural effusion. There is a right upper lobe 4 mm pulmonary nodule. Was not seen on prior examination. Severe degenerative changes of the right shoulder. Degenerative changes of the left shoulder. There are degenerative changes of thoracic spine. Scoliotic curvature to the spine. Artifact limits evaluation the upper abdomen as does bolus timing. There is some reflux of contrast into the IVC which can be seen with right heart strain. CT/CTA Chest W/WO Contrast IMPRESSION: Evaluation is limited for pulmonary embolism due to bolus timing as well as patient's body habitus and upper extremities being down during the examination. There are multiple areas which would be concerning for pulmonary emboli versus artifact. Within the left lower lobe there is a segmental and right lower lobe subsegmental pulmonary artery which is higher in concern for a pulmonary embolism. Recommend correlation with either nuclear medicine ventilation perfusion study or repeat CT angiogram with improved bolus timing. There is no pulmonary embolism identified within the main pulmonary artery or the right or left main pulmonary arteries. Severe Central venous stenosis with innumerable venous collaterals. This likely is the reason for bolus timing. A lower extremity approach injection may be more beneficial. Recommend nonemergent thyroid ultrasound. Right upper lobe new pulmonary nodule. Recommend 6 month follow-up CT scan for stability. Other findings as discussed above. N.B. : The above information has been verbally conveyed by Kannan Greenberg to Dr. Lee, Referring Physician, on 05/15/2018 03:51:38 (ET). Electronically Signed: Kannan Greenberg, at 3:50 EDT Tel , Service support , CC: DMITRIY LEE MD; Avinash Banda MD Brick Chimney Supervisor: Signed CBC W/DIFF, AUTOMATED Collected: 05/15/2018 Status: F Source: NAJMA 1:53 AM [facility] REPOSITORY TYPE CODE TESTS RESULT OUT OF RANGE REFERENCE UNITS LAB L100.1000 4.4-11.0 K/mm3 Normal WBC 6.3 LAB L100.1200 4.6-6.2 M/mm3 Low RBC 4.53 LAB L100.1300 13.0-16.5 g/dl Low HGB 12.5 LAB L100.1400 40-54 % Low HCT 39.5 LAB L100.1500 80-94 fL Normal MCV 87.2 LAB L100.1600 27.0-32.0 pg Normal MCH 27.6 LAB L100.1700 32-36 g/gl Low MCHC 31.6 LAB L100.1810 11.6-14.6 % High RDW CV 17.3 LAB L100.1820 35.1-43.9 fl High RDW SD 55.2 LAB L100.1900 150-450 K/mm3 Normal PLT 229 LAB L100.2000 6.2-12.0 fl Normal MPV 11.4 LAB L100.2100 47-70 % Normal NEUT% 52.4 LAB L100.2200 19-41 % Normal LY% 24.3 LAB L100.2300 0-10 % High MONO% 20.3 LAB L100.2400 0-5 % Normal EO% 2.1 LAB L100.2500 0-1 % Normal BASO% 0.6 LAB L100.2550 0.0-0.9 % Normal IM GRAN % 0.300 Result Comment: IG% - Immature Granulocytes (promyelocytes, myelocytes and metamyelocytes) > 1% indicates that a LEFT SHIFT is Present. LAB L100.2620 2.0-7.7 X10 3/uL Normal Absolute Neut 3.3 LAB L100.2720 0.83-4.51 X10 3/ul Normal Absolute Lymph 1.52 Performed By: #### L100.0100 #### [facility] [address] [facility] [place], [address] D-DIMER QUANTITATIVE Collected: 05/15/2018 Status: F Source: NAJMA (DVT/PE) 1:53 AM [facility] REPOSITORY TYPE CODE TESTS RESULT OUT OF RANGE REFERENCE UNITS LAB L300.8000 0.27-0.49 FEU/ug/m High alert D-DIMER 1.15 QUANT Result Comment: CRITICAL VALUE VERIFIED. CALLED TO HAIR MEEK 05/15/18 0212 Kristine Agustin. RESULTS READ BACK BY SAME . D-Dimer ELEVATED (>0.49): Additional studies and clinical assessments are indicated to conclude diagnosis of: Deep Vein Thrombosis (DVT) or Pulmonary Embolism (PE) Performed By: #### L300.8000 #### [facility] [address] [place], [address] BASIC METABOLIC Collected: 05/15/2018 Status: F Source: CRUMP PROFILE (BMP) 1:53 AM [facility] REPOSITORY TYPE CODE TESTS RESULT OUT OF RANGE REFERENCE UNITS LAB L501.0100 74-106 mg/dL Normal GLU 89 Result Comment: Please note revised GLUCOSE reference range effective 2017. LAB L501.1000 7-18 mg/dL High BUN 24 LAB L501.1100 0.70-1.30 mg/dL High alert CREAT,SERUM 8.01 Result Comment: Critical Result(s) Called at: 02:27:47 05/15/2018 by: GIORGIO SMILEY,CDL DRIVER The validity of the calculated GFR AND GFRAA in patients over 70 years has not been determined. Clinical correlation is essential. LAB L501.1110 >60 mL/min Low EST GFR 8 Result Comment: Non- GFR Calc LAB L501.1115 >60 mL/min Low EST GFR - AA 10 Result Comment: GFR Calc LAB L501.1255 ml/min Normal Estimated CRCL 13.58 LAB L501.1300 10-20 RATIO Low BUN/CRE 3.0 LAB L501.2200 8.5-10 mg/dL Normal .1 CA 8.8 LAB L501.5300 136-14 mmol/L Low 5 NA 133 LAB L501.5600 3.5-5. mmol/L Normal 1 K 4.6 Result Comment: Moderate Hemolysis, Result may be falsely increased. LAB L501.5900 98-107 mmol/L Low CL 93 LAB L501.6100 21.0-32.0 mmol/L High CO2 34.0 LAB L501.6200 5-15 Normal GAP 6 Performed By: #### L500.2500, L501.4010 #### [facility] [address], [address] TROPONIN-I Collected: 05/15/2018 Status: F Source: NAJMA 1:53 AM [facility] REPOSITORY TYPE CODE TESTS RESULT OUT OF RANGE REFERENCE UNITS LAB L501.4010 <0.045 ng/mL Normal < 0.015 TROPONIN-I Result Comment: TROPONIN-I EXPECTED VALUES <0.045 Negative 0.045 - 0.590 Consistent with Cardiac Damage > OR = 0.600 Critical Value Not every elevated troponin is indicative of LA. These values should be used with clinical judgement in examining the patient's clinical picture for diagnosis. To establish a diagnosis of LA versus myocardial injury, there must be a demonstrated rise and/or fall in the troponin values, in addition to ischemic symptoms, EKG changes, new regional wall motion abnormality, and/or angiographical evidence. PLEASE NOTE: REFERENCE RANGES EDITED 18 Performed By: #### L500.2500, L501.4010 #### [facility] [address] [place], [address] PARTIAL THROMBOPLAST Collected: 05/15/2018 Status: F Source: CRUMP TIME 1:53 AM [facility] REPOSITORY TYPE CODE TESTS RESULT OUT OF RANGE REFERENCE UNITS LAB L300.4310 24.1-36.2 Seconds Normal PTT 34.5 Performed By: #### L300.4310 #### [facility] [address] [place], [address] CHEST PA AND LATERAL Observed: 05/15/2018 Status: F Source: CRUMP 1:35 AM [facility] REPOSITORY [facility] Imaging Services [address] [place] [address] Chest PA and Lateral MR#: [id number] Acct: [id number] Name: ELIA WESTON Javier Rep #: [id number] : 1980 M 38 From: Kannan Greenberg MD PCP: Avinash Banda MD Status: REG ER Study: Chest PA and Lateral Date of Exam: 05/15/18 Exam# [id number] Ordering Dr: Dmitriy Lee MD STUDY: X-RAY CHEST REASON FOR EXAM: Male, 38 years old. Chest pain TECHNIQUE: Frontal and lateral views of the chest. COMPARISON: July 22, 2017. FINDINGS: The lungs are clear and expanded. There is no demonstrated pleural abnormality. Normal size heart. Normal mediastinum and michael. Normal visualized pulmonary arteries. Normal visualized aortic arch and descending thoracic aorta. Scoliotic curvature to the spine. There is degenerative osteoarthritis of the bilateral shoulders. There is no demonstrated abnormality of the visualized soft tissue structures of the upper abdomen. RAD/Chest PA and Lateral IMPRESSION: No acute cardiopulmonary disease. Electronically Signed: Kannan Dionicio, at 2:25 EDT Tel , Service support , CC: DMITRIY LEE MD; Avinash Banda MD Brick Chimney Supervisor: Signed EMERGENCY DEPARTMENT Observed: 02/23/2018 Status: F Source: CRUMP SUMMARY 7:22 AM [facility] REPOSITORY [facility] Medical Records Department [address] [place] [address] Emergency Department Summary 02/23/18 0023 MR#: [id number] Acct: [id number] Name: ELIA WESTON Rep #: [id number] : 1980 37 From: Jackson Hilario DO PCP: Avinash Banda MD Status: DEP ER - ER Visit Summary Date of Service: 02/23/18 Chief Complaint: [] Right elbow and shoulder pain History of Present Illness: The patient is a 37 M [] complaining of right elbow and shoulder pain without injury. Reports symptoms started 2 days ago. Denies increase physical activity. Patient is unsure of the etiology discomfort. He does have an old nonfunctional dialysis fistula in that extremity. His current active dialysis fistula is in the contralateral extremity. He denies significant swelling to the affected extremity. Denies numbness or tingling. No other complaints at this time. Physical Examination: [] Afebrile, vital signs stable. 37-year-old male no acute distress. Conversational. Mild tenderness over the right trapezius and right deltoid without gross deformity or swelling. There is mild discomfort to the lateral epicondyles of the right elbow without swelling, rash, warmth. Neurovascular intact distally. Plus 5 out of 5 muscle strength/quality control head strength to the affected extremity. Test Results: [] X-rays right shoulder: Negative per my interpretation. X-rays right elbow: Negative per my interpretation. Emergency Department Course and Treatment: [] Patient given oxycodone for analgesia. X-rays are negative. Patient encouraged to ice the affected area and follow-up with his primary care physician. Treatment Plan: [] Follow-up with PCP. Tylenol for pain. Ice. Disposition: [] Discharge, stable. Impression: [] Right shoulder sprain Right elbow sprain This note was generated with Pur[employer]ify dictation software. It may contain incorrect words, spelling, and punctuation that were not noted in review of the chart prior to signing ED Disposition - Plan for ED Patient: Chief Complaint: Upper Extremity Injury Referrals: Avinash Banda MD [Primary Care Provider] - What to do if you have Problems For any increased pain, shortness of breath, bleeding, nausea or vomiting, chest pain, or any unexpected problems, contact your Primary Care Provider. Call [facility] ([phone]) or report to the closest Emergency Room. Call 911 if necessary. 02/23/18 0722 <Electronically signed by Jackson Hilario DO> Date Jackson Hilario DO Cosigner Signature (If Indicated): Date CC: Avinash Banda MD DISCHARGE INSTRUCTION Observed: 02/23/2018 Status: F Source: NAJMA 12:57 AM [facility] REPOSITORY [facility] Medical Records Department [address] [place] [address] Discharge Instruction 02/23/18 0057 MR#: [id number] Acct: [id number] Name: ELIA WESTON Rep #: [id number] : 1980 37 From: Jackson Hilario DO PCP: Avinash Banda MD Status: REG ER ED Disposition - Plan for ED Patient: Disposition: Home or Assisted Living Chief Complaint: Upper Extremity Injury Instructions: ED Sprain Shoulder, ED Sprain Elbow Referrals: Avinash Banda MD [Primary Care Provider] - What to do if you have Problems For any increased pain, shortness of breath, bleeding, nausea or vomiting, chest pain, or any unexpected problems, contact your Primary Care Provider. Call [facility] ([phone]) or report to the closest Emergency Room. Call 911 if necessary. 02/23/18 0057 <Electronically signed by Jackson Hilario DO> Date Jackson Hilario DO Cosigner Signature (If Indicated): Date CC: Avinash Banda MD ELBOW MIN 3 VIEWS Observed: 02/23/2018 Status: F Source: CRUMP 12:22 AM [facility] REPOSITORY [facility] Imaging Services [address] [place] [address] Elbow min 3 Views MR#: [id number] Acct: [id number] Name: ELIA WESTON Rep #: [id number] : 1980 37 From: Reyna Goldstein MD PCP: Avinash Banda MD Status: [facility] ER Study: Elbow min 3 Views Date of Exam: 02/23/18 Exam# [id number] Ordering Dr: Jackson Hilario DO XR Elbow Min 3 Views INDICATION: PAIN COMPARISON: None TECHNIQUE: 3 views of the right elbow FINDINGS: Soft tissue swelling, calcifications and clips are seen at the anterior upper arm and antecubital fossa. The osseous structures of the elbow are intact and well aligned. The anterior fat-pad is nondisplaced. RAD/Elbow min 3 Views IMPRESSION: The elbow is intact and well aligned. Soft tissue swelling, calcifications and surgical clips anteriorly. at 0109 Reported and signed by: Reyna Goldstein MD Electronically Signed: Reyna Goldstein MD at 1:07 EDT Tel , Service support , CC: Avinash Banda MD; Jackson Hilario DO Brick Chimney Supervisor: Signed SHOULDER MIN 2 VIEWS Observed: 02/23/2018 Status: F Source: NAJMA 12:22 AM [facility] REPOSITORY [facility] Imaging Services [address] [place] [address] Shoulder min 2 Views MR#: [id number] Acct: [id number] Name: ELIA WESTON Javier Rep #: [id number] : 1980 M 37 From: Yogesh Dunn MD PCP: Avinash Banda MD Status: DEP ER Study: Shoulder min 2 Views Date of Exam: 02/23/18 Exam# [id number] Ordering Dr: Jackson Hilario DO STUDY: X-RAY - RIGHT SHOULDER REASON FOR EXAM: Male, 37 years old. Pain TECHNIQUE: 2 view(s) of the shoulder. COMPARISON: None. FINDINGS: There is moderate degenerative arthrosis of the glenohumeral articulation. Normal acromioclavicular joint. Normal acromion. Normal humeral head and visualized proximal humerus. The soft tissue structures are unremarkable. Normal visualized pulmonary apex. RAD/Shoulder min 2 Views IMPRESSION: Moderate glenohumeral osteoarthritis. No acute osseous abnormality is evident. Electronically Signed: Yogesh Dunn MD at 1:43 EDT Tel , Service support , CC: Avinash Banda MD; Jackson Hilario DO Brick Chimney Supervisor: Signed INTERNAL MEDICINE Observed: 02/10/2018 Status: F Source: CRUMP OFFICE VISIT 8:14 AM [facility] [address] [place] [address] [place] [address] OFFICE VISIT Date of Service: 02/09/18 MR#: [id number] Acct: [id number] Name: ELIA WESTON Rep #: [id number] : 1980 Provider: Avinash Banda MD Age/Sex: 37/M [place] [facility] [place] [facility] [place] Status: Signed Intake Vital Signs02/09/18 Height 5 ft 10 in Intake Visit Reasons: BLOOD IN URINE Chief Complaint: groin lump changes Is patient in pain?: Yes (groin) Pain scale (1-10): 4 Allergies No Known Allergies Allergy (Verified 01/08/18 21:05) Medications cinacalcet 60 mg tablet 60 mg PO BID 10/10/17 [History Confirmed 01/08/18] sevelamer carbonate 800 mg tablet 800 mg PO TID 10/10/17 [History Confirmed 01/08/18] Carvedilol [Coreg (Beta Yossi)] 1 tab PO BID 01/08/18 [History Confirmed 01/08/18] PFSH Medical History History of blood clots (Acute) Hearing loss (Chronic) Social History Smoking Status: Never smoker alcohol intake: never substance use type: does not use what type of physical activity do you participate in: none HPI HPI Chief Complaint: groin lump changes Details: ELIA WESTON, is a 37yo M who presents to the office today due to worsening pelvic pain. He has chronic pelvic pain from a pelvic mass though to be due to calcinosis. He was referred to Urology however patient is not very sure about if he followed up or not. He has noted worsening pain and possible increase in the size of the mass. He reports compliance with his dialysis. ROS Const Constitutional: No weight change, body ache, chills, fatigue, sleep problems, fever(s), change in appetite, snoring, weakness, frequent falls, headache(s) or excessive sweating Eyes Eyes: No change in vision, eye pain, light sensitivity or blurry vision ENT ENT: Positive for hearing loss (increased in left ear); no headache(s), abnormal hearing, ear pain, tinnitus, nasal congestion, sore throat or neck pain Resp Respiratory: No snoring, cough, shortness of breath or wheezing Cardio Cardiology: No excessive sweating, chest pain at rest, chest pain with exertion, shortness of breath, dyspnea on exertion, palpitations, orthopnea or lightheadedness Gastro GI: No abdominal pain, change in bowel habits, constipation, diarrhea, vomiting, nausea/dyspepsia or cramping Genitourinary Male: Positive for other (growth on groin feels larger); no painful urination, urinary incontinence, urinary frequency, urinary urgency, blood in urine or testicle pain Musc Musculoskeletal: No neck pain, abnormal walking, joint pain, back pain, limited range of motion or tingling Skin Skin: No redness, dry skin, itching, lesions, wounds or rash Neuro Neurology: No weakness, frequent falls, headache(s), abnormal hearing, abnormal walking, tingling, abnormal speech, dizziness or memory loss Psych Psychiatric: No change in appetite, No memory loss, No anxiety, No depression, No Thoughts of harming yourself/Others Endo Endocrine: No fatigue, excessive sweating, cold intolerance, increased thirst/drinking, heat intolerance, flushing or increased hunger Aller/Imm Allergy/Immunologic: No wheezing, itchy eyes, hives or seasonal allergy symptoms Lucas/Lymp Hematologic/Lymphatic: No easy bleeding, easy bruising or enlarged lymph nodes Exam Const General: cooperative, no acute distress Orientation: alert, awake, oriented x3 [facility] Head: atraumatic, normocephalic Resp Effort AND Inspection: normal respiratory effort, able to speak in complete sentences Auscultation: Bilateral: Clear to Auscultation Cardio Rate: regular rate Rhythm: regular rhythm Heart Sounds: S1 normal, S2 normal GI Inspection: obesity Palpation: soft, no hepatosplenomegaly Other: Right sided tender groin swelling appreciated. Neuro General: alert, awake, oriented x3, CN's II-XI intact bilaterally, moves all extremities Extrem General: no pedal edema Psych Appearance: grossly normal Affect: normal affect Assessment AND Plan 1. Pelvic mass R19.00 Plan ? Increasing/Progressing mass. Patient reports worsening discomfort. No change in hematuria. Referred again to Urology. Patient advised to follow up. Will defer imaging to him. Orders Referrals: 2. Chronic pelvic pain in male R10.2; G89.29 Plan Meloxicam not helping. Referred to pain management for chronic pain care. Follow up at next visit. This note was generated with Social Intelligenceation software. It may contain incorrect words, spelling, and punctuation that were not noted in checking the note before signing. Orders Referrals: Plan Detail Follow Up 1 Month Coding Level of Care Code Off vis,est,level 3 Diagnoses Pelvic mass R19.00 Chronic pelvic pain in male R10.2; G89.29 02/10/18 0814 <Electronically signed by Avinash Banda MD> Date Avinash Banda MD Cosigner Signature: Date (if applicable) CC: CHEST 2 VIEW Observed: 01/17/2018 Status: F Source: [facility] 9:09 PM REPOSITORY DATE OF EXAM: Jan 17 2018 9:09PM CLINICAL HISTORY/ Patient Name: ELIA WESTON STUDY: CHEST 2 VIEW; 01/17/2018 9:09 pm INDICATION: Pain. COMPARISON: 04/13/2013 ACCESSION NUMBER(S): [id number] ORDERING CLINICIAN: PRINCESS ROMAN FINDINGS: Cardiomediastinal contours are stable in size and configuration. There isPatchy right basilar opacity which could relate to atelectasis or infiltrate. Mild interstitial prominence could relate to mild edema or viral/atypical infection. No sizable effusion or pneumothorax. Dextroscoliosis, but no definite acute osseous abnormality. CONCLUSION: IMPRESSION: Mild interstitial prominence could relate to mild edema or viral/atypical infection. Patchy right basilar atelectasis versus developing infiltrate. CTA NECK Observed: 01/17/2018 Status: F Source: [facility] 9:01 PM REPOSITORY DATE OF EXAM: Jan 17 2018 9:01PM CLINICAL HISTORY/ Patient Name: ELIA WESTON STUDY: CTA NECK; 01/17/2018 9:01 pm INDICATION: Right-sided neck pain. COMPARISON: None. ACCESSION NUMBER(S): [id number] ORDERING CLINICIAN: PRINCESS ROMAN TECHNIQUE: Contiguous axial CTA images of neck were obtained after the administration of 150 mL Isovue 370 IV contrast. Sagittal and coronal reconstructions were created FINDINGS: Suboptimal evaluation due to technical issues with poor timing and lack of early arterial phase scanning. CTA NECK FINDINGS: Normal appearing three-vessel arch without significant atherosclerotic disease. Right carotid vessels: The common carotid artery is normal. There are calcifications at the carotid bifurcation the internal carotid artery in the neck is normal. No significant stenosis by NASCET criteria Left carotid vessels: The common carotid artery is normal. There are calcifications at the carotid bifurcation. The internal carotid artery in the neck is normal. No significant stenosis by NASCET criteria Vertebral vessels: Dominant right vertebral artery with diminutive caliber of the left vertebral artery throughout its entire course. Basilar artery and proximal visualized portions of the posterior cerebral arteries are within normal limits. Lung apices are unremarkable. Extensive collateral vessels are present within the anterior upper chest and neck soft tissues. Orbits are symmetric bilaterally. Visualized paranasal sinuses demonstrate mucosal thickening of the maxillary sinuses. Underpneumatized mastoid air cells right greater than left. Parotid and submandibular glands are unremarkable without stones. Prominent cervical lymph nodes bilaterally. No retropharyngeal or peritonsillar collection are present. CONCLUSION: IMPRESSION: Suboptimal evaluation due to poor contrast timing, however, allowing for these limitations no evidence of occlusion or significant stenosis throughout the visualized neck vessels Extensive collateral vessels/varices are seen within the anterior lower neck/upper chest wall soft tissues. Observed: 01/17/2018 Status: F Source: [facility] CULTURE, BLOOD 9:00 PM REPOSITORY BACTERIAL BILL#: [id number] : 84 AGE: SEX: M PRINCESS NEAL SOURCE: Blood COLLECTED: 01/17/18 21:00 ANTIBIOTICS AT AKBAR.: RECEIVED : 01/18/18 00:18 SITE: Antecubital R E S U L T S BLOOD CULTURE, BACTERIAL FINAL 01/23/18 05:42 No Growth at 1 days No Growth at 2 days No Growth at 3 days NO GROWTH - FINAL REPORT Performed By: #### [id number] #### [facility] [place] [address] [address] CBC WITH DIFFERENTIAL Collected: 01/17/2018 Status: F Source: [facility] 8:27 PM HEALTHCARE REPOSITORY TYPE CODE TESTS RESULT OUT OF REFERENCE UNITS RANGE LAB WBCIR(LOIN 4.2-11.0 10*3/uL C) WBC 6.7 LAB RBC(LOINC) 4.08-6.37 10*6/uL Low RBC 3.84 LAB HGB(LOINC) 12.8-17.7 g/dL Low HGB 10.2 LAB HCT(LOINC) 38.4-54.9 % Low HCT 34.6 LAB MCV(LOINC) 83.3-98.2 fL MCV 90.1 LAB MCH(LOINC) 27.5-32.9 pg Low MCH 26.6 LAB MCHC(LOINC 30.5-35.4 g/dL ) Low MCHC 29.5 LAB RDWCV(LOIN 12.0-15.4 % C) RDW CV High 19.3 LAB RDWSD(LOIN 39.3-48.6 fL C) RDW SD High 62.6 LAB PLTC(LOINC 155-404 10*3/uL ) Platelet Count 293 LAB MPV(LOINC) 9.9-12.1 fL MPV 10.3 LAB NRBCR(LOIN /100{WBCs} C) NRBC Automated 0.0 LAB NRBCA(LOIN 10*3/uL C) NRBC Absolute 0.00 LAB ASEGR(LOIN 2.22-7.53 10*3/uL C) Neutrophils Absolute 4.35 LAB ALYMR(LOIN 0.40-2.84 10*3/uL C) Lymphocytes Absolute 1.00 LAB AMONR(LOIN 0.25-1.33 10*3/uL C) Monocytes Absolute 1.18 LAB AEOSR(LOIN 0.01-0.46 10*3/uL C) Eosinophils Absolute 0.09 LAB ABASR(LOIN 0.01-0.09 10*3/uL C) Basophils Absolute 0.02 LAB IGRA(LOINC % ) Immature Granulocytes 0.6 LAB IGR(LOINC) 0.00-0.21 10*3/uL Imm Grans Absolute 0.04 LAB SEGC(LOINC 46.2-79.1 % ) Neutrophils 65.1 LAB LYMPC(LOIN 9.4-41.1 % C) Lymphocytes 15.0 LAB MONOC(LOIN 3.0-16.2 % C) Monocytes High 17.7 LAB EOSC(LOINC 0.0-6.7 % ) Eosinophils 1.3 LAB BASOC(LOIN 0.0-1.3 % C) Basophils 0.3 Performed By: #### [id number] #### [facility] [address] [place] [address] PROTHROMBIN TIME Collected: 01/17/2018 Status: F Source: [facility] 8:27 PM HEALTHCARE REPOSITORY TYPE CODE TESTS RESULT OUT OF RANGE REFERENCE UNITS LAB PTI(LOINC) 9.8-12.7 sec High PT 13.4 Result Comment: PLEASE NOTE NEW REFERENCE RANGE EFFECTIVE 2017 LAB INR(LOINC) 0.90-1.10 High INR 1.20 Result Comment: PLEASE NOTE NEW REFERENCE RANGE EFFECTIVE 2017 Performed By: #### [id number] #### [facility] [address] [place] [address] PARTIAL THROMBOPLASTIN Collected: 01/17/2018 Status: F Source: [facility] TIME 8:27 PM HEALTHCARE REPOSITORY TYPE CODE TESTS RESULT OUT OF REFERENCE UNITS RANGE LAB PTT(LOINC) 25.0-36.0 sec Partial Thromboplastin Time 28.1 Result Comment: PLEASE NOTE NEW REFERENCE RANGE EFFECTIVE 2017 . The APTT is no longer used for monitoring Unfractionated Heparin Therapy. For monitoring Heparin Therapy, use the Heparin Assay. Performed By: #### [id number] #### [facility] [address] [place] [address] COMPREHENSIVE METABOLIC Collected: 01/17/2018 Status: F Source: [facility] PANEL 8:27 PM HEALTHCARE REPOSITORY TYPE CODE TESTS RESULT OUT OF REFERENCE UNITS RANGE LAB GLU(LOINC) 70-100 mg/dL Glucose 92 LAB UREA(LOINC 6-23 mg/dL ) Urea Nitrogen 21 LAB CREAT(LOIN 0.50-1.30 mg/dL C) High Creatinine 7.98 LAB GFR(LOINC) Glomerular 8 Filtration Rate Result Comment: Interpretation for Chronic Kidney Disease: Stages 1&2 >60 Healthy or potential kidney damage. Mild decrease of GFR. Stage 3 30-59 Moderate decrease of GFR. Stage 4 15-29 Severe decrease of GFR. Stage 5 <15 Kidney failure or on dialysis. LAB CA(LOINC) 8.6-10.3 mg/dL Calcium 9.9 LAB SOD(LOINC) 136-145 mmol/L Sodium Low 135 LAB POT(LOINC) 3.5-5.1 mmol/L Potassium 4.4 LAB CHLOR(LOINC) 98-107 mmol/L Chloride Low 91 LAB BICAR(LOINC) 21-32 mmol/L Bicarbonate High 33 LAB ALB(LOINC) 3.4-5.0 g/dL Albumin 3.6 LAB BILIT(LOINC) 0.0-1.2 mg/dL Bilirubin, Total 0.4 LAB ALP(LOINC) 45-117 U/L Alkaline Phosphatase 60 LAB TP(LOINC) 6.4-8.2 g/dL Total Protein 8.2 LAB ALT(LOINC) 10-52 U/L ALT (SGPT) Low 6 LAB AST(LOINC) 13-39 U/L AST (SGOT) Low 12 LAB ANGAP(LOINC) 10-20 mmol/L Anion Gap 15 LAB AGRAT(LOINC) 0.9-2.4 A/G Ratio Low 0.8 LAB BCRAT(LOINC) 5-25 Low Urea/Creatinine Ratio 3 Performed By: #### [id number] #### [facility] [address] [place] [address] C-REACTIVE PROTEIN, Collected: 01/17/2018 Status: F Source: [facility] HIGH SENSITIVITY 8:27 PM HEALTHCARE REPOSITORY TYPE CODE TESTS RESULT OUT OF REFERENCE UNITS RANGE LAB HSCRP(LOIN mg/L C) C-Reactive High Protein, High 51.20 Sensitivity Result Comment: < 1.0 LOW RELATIVE RISK OF CVD 1.0 - 3.0 AVERAGE RELATIVE RISK OF CVD > 3.0 HIGH RELATIVE RISK OF CVD Performed By: #### [id number] #### [facility] [address] [place] [address] MAGNESIUM Collected: 01/17/2018 Status: F Source: [facility] 8:27 PM REPOSITORY TYPE CODE TESTS RESULT OUT OF REFERENCE UNITS RANGE LAB MG(LOINC) 1.6-2.4 mg/dL Magnesium 2.2 Performed By: #### [id number] #### [facility] [address] [place] [address] B NATRIURETIC PEPTIDE Collected: 01/17/2018 Status: F Source: [facility] 8:27 PM HEALTHCARE REPOSITORY TYPE CODE TESTS RESULT OUT OF REFERENCE UNITS RANGE LAB BNP(LOINC) <100 pg/mL B Natriuretic 48 Peptide Performed By: #### [id number] #### [facility] [address] [place] [address] TROPONIN Collected: 01/17/2018 Status: F Source: [facility] 8:27 PM REPOSITORY TYPE CODE TESTS RESULT OUT OF REFERENCE UNITS RANGE LAB TROP(LOINC) 0.000-0.040 ng/mL Troponin <0.020 Result Comment: <0.04 : Negative 0.04 - 0.50 : Possible Cardiac Damage >0.50 : Consistent with Cardiac Damage Performed By: #### [id number] #### [facility] [address] [place] [address] Observed: 01/17/2018 Status: F Source: [facility] CULTURE, BLOOD 8:27 PM REPOSITORY BACTERIAL BILL#: [id number] : 84 AGE: SEX: Danyelle BOTELLODORIEPRINCESS CROSS SOURCE: Blood COLLECTED: 01/17/18 20:27 ANTIBIOTICS AT AKBAR.: RECEIVED : 01/18/18 00:20 SITE: SAME SOURCE R E S U L T S BLOOD CULTURE, BACTERIAL FINAL 01/23/18 05:42 No Growth at 1 days No Growth at 2 days No Growth at 3 days NO GROWTH - FINAL REPORT Performed By: #### CXBLB #### [facility] [address] [place] [address] EMERGENCY DEPARTMENT Observed: 01/09/2018 Status: F Source: NAJMA SUMMARY 12:32 AM [facility] REPOSITORY [facility] Medical Records Department [address] [place] [address] Emergency Department Summary 01/08/18 2210 MR#: [id number] Acct: [id number] Name: ELIA WESTON Rep #: [id number] : 1980 37 From: Jayden Casper PCP: Avinash Banda MD Status: REG ER - ER Visit Summary Date of Service: 01/08/18 Chief Complaint: Multiple complaints History of Present Illness: The patient is a 37 M presents with multiple complaints. 2 days ago noting fluttering right side of his islam region, increasing sharpness 8 PM today. States had a fall 3 days ago but there is no head injuries. States the railing came down causing the fall. No injuries. Denies any aura, photophobia. Nausea without vomiting. No previous similar symptoms in the past. Yesterday started having mid abdominal pain cramping in nature. This is intermittent. No vomiting or diarrhea. No previous symptoms. also states today there is hematuria. No anticoagulation medications. Similar symptoms in the past. Denies tobacco history. He did follow-up with urology 2 months ago, states had a CAT scan along with blood test to rule out cancer. There is no cystoscopy. Complains of subjective fevers, chills, sweats. No upper respiratory symptoms. Patient history of end-stage dialysis past 11 years on Tuesdays, , Saturdays. Did have dialysis today. This is secondary to hypertension history. No history of diabetes. Patient states he makes urine every 2 days. States today was his blood coming out and not urinating. Physical Examination: General: Alert and oriented 3, no acute distress HEENT: Normocephalic, atraumatic. Moist mucosa membranes. No papilledema Neck: supple, nontender. No meningismus Cardiovascular: Regular rate and rhythm, no murmurs Respiratory: Normal breath sounds, symmetric, no distress Abdomen: Soft, nontender, nondistended, negative Azevedo's McBurney's. No guarding or rebound. Extremities: Nontender, no edema, pulses intact 4. Right upper extremity: Fistula right arm with no thrill. Left upper extremity: Fistula left forearm with positive thrill. Neuro: no focal neurological deficits. Test Results: WBC 6.2. Hemoglobin 9.9. Creatinine 8.67. Potassium 4.7. Lipase and LFT normal. CT head empty sella per radiology. CT abdomen pelvis no acute findings. Emergency Department Course and Treatment: Patient vitals stable, nonsurgical abdomen. No meningismus. Patient with throbbing headache on the right side with no visual changes. CT head obtained noted empty sella per radiology, this reported that could be findings from pseudotumor cerebri. Patient with no papilledema. Denies positional changes. Initially given Compazine and Benadryl, reevaluation symptoms improved. Discussed findings with patient, can follow-up with his PCP for further testing as an outpatient. As for abdominal pain, CT scan was negative. Abdominal labs normal. Chronic kidney disease with dialysis creatinine 8.67. Potassium is normal. Patient ready to be discharged with outpatient follow-up. Patient complain of blood in his urine. No urine was able to be obtained. He has similar findings with follow-up with urology. He will follow-up as an outpatient. Treatment Plan: [] Disposition: Discharge Impression: 1. Cephalgia 2. Nonspecific abdominal pain 3. End-stage renal disease on dialysis. 4. Hematuria This note was generated with Puridify dictation software. It may contain incorrect words, spelling, and punctuation that were not noted in review of the chart prior to signing ED Disposition - Plan for ED Patient: Disposition: Home or Assisted Living Chief Complaint: Complaint Diagnosis: Cephalgia, Nonspecific abdominal pain, End stage renal disease due to hypertension, Hematuria Instructions: ED Cephalgia Unspecified, ED Hematuria Referrals: Avinash Banda MD [Primary Care Provider] - 3-5 Days Gio Trevino MD [STAFF PHYSICIAN] - 3-5 Days Additional Instructions: Empty sella on CT head. Follow-up with your doctor for reevaluation further testing as needed. Hematuria. Call urology for follow-up reevaluation. What to do if you have Problems For any increased pain, shortness of breath, bleeding, nausea or vomiting, chest pain, or any unexpected problems, contact your Primary Care Provider. Call [facility] ([phone]) or report to the closest Emergency Room. Call 911 if necessary. 01/09/18 0032 <Electronically signed by Jayden Casper> Date Jayden Casper Cosigner Signature (If Indicated): Date CC: Avinash Banda MD COMPREHENSIVE METABOLIC Collected: 01/08/2018 Status: F Source: NAJMA MONTOYA 11:45 PM [facility] REPOSITORY Order Comment: REDRAW. PREVIOUS SPECIMEN REJECTED DUE TO HEMOLYZED. 01/08/18 2318 Marcia Camp. TYPE CODE TESTS RESULT OUT OF RANGE REFERENCE UNITS LAB L501.0100 74-106 mg/dL Normal GLU 77 Result Comment: Please note revised GLUCOSE reference range effective 2017. LAB L501.1000 7-18 mg/dL High BUN 26 LAB L501.1100 0.70-1.30 mg/dL High alert CREAT,SERUM 8.67 Result Comment: Critical Result(s) Called at: 00:18:01 01/09/2018 by: Javier Agustin to Ashlyn Bazzi The validity of the calculated GFR AND GFRAA in patients over 70 years has not been determined. Clinical correlation is essential. LAB L501.1110 >60 mL/min Low EST GFR 7 Result Comment: Non- GFR Calc LAB L501.1115 >60 mL/min Low EST GFR - AA 9 Result Comment: GFR Calc LAB L501.1255 ml/min Normal Estimated CRCL 12.28 LAB L501.1300 10-20 RATIO Low BUN/CRE 3.0 LAB L501.1500 6.4-8. g/dL High 2 T PROT 8.6 LAB L501.1800 3.2-5. g/dL Low 0 ALB 2.9 LAB L501.1950 2.2-4. g/dL High 2 GLOB 5.7 LAB L501.2000 0.9-2. RATIO Low 4 A/G 0.5 LAB L501.2200 8.5-10 mg/dL Normal .1 CA 8.8 LAB L501.4100 15-37 U/L Low AST 12 LAB L501.4305 45-117 U/L Normal ALK P 65 LAB L501.4405 16-61 U/L Low ALT 9 Result Comment: Please note revised ALT reference range effective 2017. LAB L501.4600 0.20-1.00 mg/dL Normal T BILI 0.40 LAB L501.5300 136-145 mmol/L Normal NA 136 LAB L501.5600 3.5-5.1 mmol/L Normal K 4.7 LAB L501.5900 98-107 mmol/L Normal CL 98 LAB L501.6100 21.0-32.0 mmol/L Normal CO2 29.0 LAB L501.6200 5-15 Normal GAP 9 Performed By: #### L500.4050, L501.2450 #### [facility] [address] [place], [place], [address] LIPASE Collected: 01/08/2018 Status: F Source: CRUMP 11:45 PM [facility] REPOSITORY Order Comment: REDRAW. PREVIOUS SPECIMEN REJECTED DUE TO HEMOLYZED. 01/08/18 2318 Marcia Camp. TYPE CODE TESTS RESULT OUT OF RANGE REFERENCE UNITS LAB L501.2450 73-393 U/L Normal LIPASE 197 Performed By: #### L500.4050, L501.2450 #### [facility] [address] [place], [place], [address] CBC W/DIFF, AUTOMATED Collected: 01/08/2018 Status: F Source: CRUMP 10:30 PM [facility] REPOSITORY TYPE CODE TESTS RESULT OUT OF RANGE REFERENCE UNITS LAB L100.1000 4.4-11.0 K/mm3 Normal WBC 6.2 LAB L100.1200 4.6-6.2 M/mm3 Low RBC 3.70 LAB L100.1300 13.0-16.5 g/dl Low HGB 9.9 LAB L100.1400 40-54 % Low HCT 33.7 LAB L100.1500 80-94 fL Normal MCV 91.1 LAB L100.1600 27.0-32.0 pg Low MCH 26.8 LAB L100.1700 32-36 g/gl Low MCHC 29.4 LAB L100.1810 11.6-14.6 % High RDW CV 19.7 LAB L100.1820 35.1-43.9 fl High RDW SD 61.4 LAB L100.1900 150-450 K/mm3 Normal PLT 244 LAB L100.2000 6.2-12.0 fl Normal MPV 10.8 LAB L100.2100 47-70 % Normal NEUT% 60.8 LAB L100.2200 19-41 % Low LY% 18.3 LAB L100.2300 0-10 % High MONO% 18.6 LAB L100.2400 0-5 % Normal EO% 1.6 LAB L100.2500 0-1 % Normal BASO% 0.5 LAB L100.2550 0.0-0.9 % Normal IM GRAN % 0.200 Result Comment: IG% - Immature Granulocytes (promyelocytes, myelocytes and metamyelocytes) > 1% indicates that a LEFT SHIFT is Present. LAB L100.2620 2.0-7.7 X10 3/uL Normal Absolute Neut 3.8 LAB L100.2720 0.83-4.51 X10 3/ul Normal Absolute Lymph 1.14 Performed By: #### L100.0100 #### [facility] [address] [facility] [place], [address] BRAIN/HEAD WITHOUT Observed: 01/08/2018 Status: F Source: CRUMP CONTRAST 10:11 PM [facility] REPOSITORY [facility] Imaging Services [address] [place] [address] Brain/Head without Contrast MR#: [id number] Acct: [id number] Name: ELIA WESTON Javier Rep #: [id number] : 1980 M 37 From: Harpreet Brian MD PCP: Avinash Banda MD Status: REG ER Study: Brain/Head without Contrast Date of Exam: 01/08/18 Exam# [id number] Ordering Dr: Jayden Galo DO STUDY: CT BRAIN WITHOUT CONTRAST REASON FOR EXAM: Male, 37 years old. Headache RADIATION DOSAGE (If Supplied By Facility): CTDIvol = ( 44.99 ) mGy, DLP = ( 846.73 ) mGycm TECHNIQUE: Transaxial CT imaging of the brain was performed without administration of intravenous contrast material. Individualized dose optimization techniques were used for this CT. COMPARISON: April 02, 2016 FINDINGS: Normal soft tissue structures. Normal calvarium. Mild nonspecific cortical atrophy for stated age. Normal white matter tracts of the cerebral hemispheres. Normal basal ganglia and thalami. Normal brainstem. Normal cerebellum. Expansile appearance to sella turcica demonstrating low attenuation consistent with empty sella deformity There is no intracranial hemorrhage. There are no findings of an acute ischemic infarction. There appears to be mild orbital proptosis. Clinical correlation recommended There is polypoid mucosal thickening in the maxillary sinuses and moderate mucosal thickening within left sphenoid sinus CT/Brain/Head without Contrast IMPRESSION: Mild cortical atrophy for stated age. No evidence for obstructive hydrocephalus mass or acute bleed Empty sella deformity is observed of uncertain clinical significance although may be seen in association with pseudotumor cerebri. Clinical correlation is recommended this regard.. Electronically Signed: Harpreet Brian MD at 23:41 EDT , Service support , CC: Avinash Banda MD; Jayden Galo Brick Chimney Supervisor: Signed ABDOMEN/PELVIS WITHOUT Observed: 01/08/2018 Status: F Source: CRUMP CONT 10:11 PM [facility] REPOSITORY [facility] Imaging Services [address] [place] [address] Abdomen/Pelvis without Cont MR#: [id number] Acct: [id number] Name: ELIA WESTON Rep #: [id number] : 1980 M 37 From: Harpreet Brian MD PCP: Avinash Banda MD Status: REG ER Study: Abdomen/Pelvis without Cont Date of Exam: 01/08/18 Exam# [id number] Ordering Dr: Jayden Galo DO STUDY: CT ABDOMEN AND PELVIS WITHOUT CONTRAST REASON FOR EXAM: Male, 37 years old. Abdominal pain and hematuria. RADIATION DOSAGE (If Supplied By Facility): CTDIvol = ( 24.17 ) mGy, DLP = ( 1662.07 ) mGycm TECHNIQUE: Transaxial images were obtained from the dome of the diaphragm to the symphysis pubis without oral contrast, and without intravenous contrast. Sagittal and coronal images were reconstructed. Individualized dose optimization techniques were used for this CT. COMPARISON: November 01, 2017 FINDINGS: Minor atelectasis at the left base.. The visualized portions of the heart are within normal limits. Normal liver. Normal gallbladder and extrahepatic biliary system. Normal spleen. Normal pancreas. Normal bilateral adrenal glands. Kidneys are small. There is no evidence for hydronephrosis or ureteral calculus. There are multiple small cysts Normal visualized stomach. Normal small intestine. Normal colon. The appendix is visualized and appears normal. Normal abdominal aorta. Normal inferior vena cava. Normal retroperitoneum. Incompletely distended bladder which cannot be well evaluated.. There are multiple venous collaterals within the subcutaneous fat of the anterior abdominal and pelvic wall There is a very large mass demonstrating extensive calcification which appears to be involving the right pubic bone extending into the anterior pelvic cavity in the prevesical space displacing the bladder posteriorly and extending inferiorly into the muscles of the medial right thigh Lumbar spine demonstrates mild spondylosis. There are lytic destructive changes of the spinous process of L4 No significant change since prior exam CT/Abdomen/Pelvis without Cont IMPRESSION: Atrophic kidneys with multiple small bilateral cysts. No evidence for hydronephrosis or ureteral calculus No acute abnormalities with other findings as above Electronically Signed: Harpreet Brian MD at 23:51 EDT , Service support , CC: Avinash Banda MD; Jayden Galo Brick Chimney Supervisor: Signed INTERNAL MEDICINE Observed: 11/07/2017 Status: F Source: NAJMA OFFICE VISIT 1:25 PM [facility] [address] [address] OFFICE VISIT Date of Service: 11/07/17 MR#: [id number] Acct: [id number] Name: ELIA WESTON Rep #: [id number] : 1980 Provider: Avinash Banda MD Age/Sex: 37/M [place] [facility] [place]: Signed Intake Vital Signs11/07/17 Height 5 ft 10 in Intake Visit Reasons: 1 MO F/U Chief Complaint: follow-up visit Is patient in pain?: No Allergies No Known Allergies Allergy (Verified 10/24/17 01:03) Medications cinacalcet 60 mg tablet 60 mg PO BID 10/10/17 [History Confirmed 10/10/17] sevelamer carbonate 800 mg tablet 800 mg PO TID 10/10/17 [History Confirmed 10/10/17] unknown blood pressure medication PO 10/10/17 [History Confirmed 10/10/17] Naproxen [Naprosyn] 500 mg PO BID PRN PRN #20 tab 10/24/17 [Rx] PFSH Medical History History of blood clots (Acute) Hearing loss (Chronic) Social History Smoking Status: Never smoker alcohol intake: never substance use type: does not use what type of physical activity do you participate in: none HPI HPI Chief Complaint: follow-up visit Details: ELIA WESTON, is a 37yo M who presents to the office today for follow up. He followed up with the urologist due to his history of hematuria. He had a CAT scan which had no significant changes from prior. He also is scheduled to get a cystoscopy. He has had no recent hematuria. He is also scheduled to follow-up with the sleep lab due to his chronic history of sleep apnea. He has had no recent titration. Last titration was about 13 years ago. He has had significant weight changes since then. He also reports ongoing/persistent fatigue. He has a history of right sided hearing loss after a viral illness. However the patient is not concerned about his left ear for which he notes mild hearing loss. ROS Const Constitutional: No weight change, body ache, chills, fatigue, sleep problems, fever(s), change in appetite, snoring, weakness, frequent falls, headache(s) or excessive sweating Eyes Eyes: No change in vision, eye pain, light sensitivity or blurry vision ENT ENT: No headache(s), abnormal hearing, ear pain, tinnitus, nasal congestion, sore throat or neck pain Resp Respiratory: No snoring, shortness of breath or wheezing Cardio Cardiology: No excessive sweating, chest pain at rest, chest pain with exertion, shortness of breath, dyspnea on exertion, palpitations, orthopnea or lightheadedness Gastro GI: No abdominal pain, change in bowel habits, constipation, diarrhea, vomiting, nausea/dyspepsia or cramping Musc Musculoskeletal: No neck pain, abnormal walking, joint pain, back pain, limited range of motion, numbness or tingling Skin Skin: No redness, dry skin, itching, lesions, wounds or rash Neuro Neurology: No weakness, frequent falls, headache(s), abnormal hearing, abnormal walking, numbness, tingling, abnormal speech, dizziness or memory loss Psych Psychiatric: No change in appetite, No memory loss, Positive for anxiety, No depression, No Thoughts of harming yourself/Others Endo Endocrine: No fatigue, excessive sweating, cold intolerance, increased thirst/drinking, heat intolerance, flushing or increased hunger Aller/Imm Allergy/Immunologic: No wheezing, itchy eyes, hives or seasonal allergy symptoms Lucas/Lymp Hematologic/Lymphatic: No easy bleeding, easy bruising or enlarged lymph nodes Exam Const General: cooperative, no acute distress Orientation: alert, awake, oriented x3 [facility] Head: atraumatic, normocephalic Resp Effort AND Inspection: normal respiratory effort, able to speak in complete sentences Auscultation: Bilateral: Clear to Auscultation Cardio Rate: regular rate Rhythm: regular rhythm Heart Sounds: S1 normal, S2 normal GI Inspection: obesity Palpation: soft, no hepatosplenomegaly Neuro General: alert, awake, oriented x3, CN's II-XI intact bilaterally, moves all extremities Extrem General: no pedal edema Psych Appearance: grossly normal Affect: normal affect Assessment AND Plan 1. Hematuria R31.9 Plan Following up with urology. CAT scan ordered with no significant changes from prior. Status had a cystoscopy. Will follow. 2. Sleep apnea G47.30 Plan He has been on CPAP for several years. He has had no re-titration after his initial and patient has had Weight Changes. He reports compliance with his Cpap however, he wakes up feeling poorly refreshed and has persistent fatigue and occasional increased somnolence. Scheduled to follow up with the sleep lab next week. 3. Hearing loss H91.90 Plan Prior history of right hearing loss after a viral illness. Now believes he is also developing in his left. Referred to ENT Will follow. This note was generated with Social Intelligenceation software. It may contain incorrect words, spelling, and punctuation that were not noted in checking the note before signing. Orders Referrals: Plan Detail Follow Up 3 Months Coding Level of Care Code Off vis,est,level 3 Diagnoses Hematuria R31.9 Sleep apnea G47.30 Hearing loss H91.90 11/07/17 1325 <Electronically signed by Avinash Banda MD> Date Avinash Banda MD Cosigner Signature: Date (if applicable) CC: CT ABD/PELVIS W/WO Observed: 11/01/2017 Status: F Source: NAJMA CONTRAST 7:07 AM [facility] REPOSITORY [facility] Imaging Services [address] [place] [address] Abd/Pelvis W/WO Contrast MR#: [id number] Acct: [id number] Name: ELIA WESTON Rep #: [id number] : 1980 M 37 From: Sunday Paulino MD PCP: Avinash Banda MD Status: REG CLI Study: CT Abd/Pelvis W/WO Contrast Date of Exam: 11/01/17 Exam# [id number] Ordering Dr: Gio Trevino MD STUDY: CT ABDOMEN AND PELVIS WITH AND WITHOUT CONTRAST REASON FOR EXAM: Male, 37 years old. Gross hematuria for few months. History of renal failure and hypertension. RADIATION DOSAGE (If Supplied By Facility): CTDIvol = ( 20.55 ) mGy, DLP = ( 3766.71 ) mGycm TECHNIQUE: Transaxial images were obtained from the dome of the diaphragm to the symphysis pubis without oral contrast. 75CC ml of Isovue 300 contrast was administered. Sagittal and coronal images were reconstructed. Individualized dose optimization techniques were used for this CT. COMPARISON: 03/06/2017. FINDINGS: The visualized portions of lung bases demonstrate again pleural-based nodular density in the left lung base measuring about 8 mm unchanged since prior exam. The visualized portions of the heart are within normal limits. The examination is limited due to artifacts. No focal lesion is identified in the liver. Normal gallbladder and extrahepatic biliary system. Normal spleen. Normal pancreas. Normal bilateral adrenal glands. Significant motion artifacts are seen indicating images of the upper abdomen and kidneys. There again is a cortical cyst in the right kidney unchanged since prior exam. Smaller cysts are also seen. There are some small low-density lesion/cyst in the left kidney unchanged since prior exam poorly visualized on this examination due to artifacts. Both kidneys are somewhat atrophic. There is no evidence of hydronephrosis. Normal visualized stomach. The small bowel loops are normal in caliber. There is fecal retention. The appendix is visualized and appears normal. Normal abdominal aorta. Normal inferior vena cava. Again are few retroperitoneal nodes unchanged since the prior examination. The urinary bladder is not well-distended and suboptimally evaluated. There are calcifications of the vas deferens. Varicose veins in the subcutaneous fat of the anterior abdominal wall are again seen. The bony structures are essentially unchanged since prior exam. Expansile lytic lesion in the spinous processes of L4 is again seen. There again are erosive changes of the sacroiliac joints bilaterally increased density of the ileum bilaterally. There again is extensive calcification and pedunculated bony mass arising from the right pubic bone extending to the adjacent soft tissues and into the right groin region increased in size since previous examination measuring now about 12 x 12 x 7 cm. There is levoscoliosis of the lumbar spine. CT/CT Abd/Pelvis W/WO Contrast IMPRESSION: Limited examination due to artifacts and motion. Atrophic kidneys with multiple low-density lesions as cysts unchanged as prior examination. Suboptimal distention of the bladder. No demonstrated acute process. 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 Low-grade malignancy is less likely due to long-standing of the lesion but cannot be entirely excluded. Electronically Signed: Sunday Pualino MD at 10:45 EST Tel , Service support , CC: Avinash Banda MD; Gio Trevino MD Brick Chimney Supervisor: Signed EMERGENCY DEPARTMENT Observed: 10/24/2017 Status: F Source: CRUMP SUMMARY 7:45 AM [facility] REPOSITORY [facility] Medical Records Department [address] [place] [address] Emergency Department Summary 10/24/17 0116 MR#: [id number] Acct: [id number] Name: ELIA WESTON Rep #: [id number] : 1980 37 From: Jackson Hilario DO PCP: Avinash Banda MD Status: DEP ER - ER Visit Summary Date of Service: 10/24/17 Chief Complaint: [] Left knee pain History of Present Illness: The patient is a 37 M [] complaining of left knee pain after walking up several steps at buddhism. Reports on the last step he felt his knee darek slightly resulting in some discomfort. Denies any significant injury or fall. Reports mild relief with Aleve. No other complaints at this time. Physical Examination: [] Mild discomfort to the left knee with range of motion testing. No swelling, deformity, warmth. Remainder of exam is unremarkable. Test Results: [] None. Emergency Department Course and Treatment: [] I did not feel the patient warranted any diagnostic imaging or testing at this time. He was provided an Wenceslao bandage to the left knee and naproxen orally in the emergency department for analgesia. He was provided a prescription for naproxen with instructions to follow-up with his primary care physician. Treatment Plan: [] Discharge to follow-up with PCP. Prescription for naproxen provided. Disposition: [] Discharge, stable. Impression: [] Left knee sprain This note was generated with Puridify dictation software. It may contain incorrect words, spelling, and punctuation that were not noted in review of the chart prior to signing ED Disposition - Plan for ED Patient: Chief Complaint: Lower Extremity Injury Referrals: Avinash Banda MD [Primary Care Provider] - What to do if you have Problems For any increased pain, shortness of breath, bleeding, nausea or vomiting, chest pain, or any unexpected problems, contact your Primary Care Provider. Call [facility] ([phone]) or report to the closest Emergency Room. Call 911 if necessary. 10/24/17 0745 <Electronically signed by Jackson Hilario DO> Date Jackson Hilario DO Cosigner Signature (If Indicated): Date CC: Avinash Banda MD DISCHARGE INSTRUCTION Observed: 10/24/2017 Status: F Source: CRUMP 1:19 AM [facility] Medical Records Department [address] [place] [address] Discharge Instruction 10/24/17 011 MR#: [id number] Acct: [id number] Name: ELIA WESTON Javier Rep #: [id number] : 1980 37 From: Jackson Hilario DO PCP: Avinash Banda MD Status: PRE ER ED Disposition - Plan for ED Patient: Disposition: Home or Assisted Living Chief Complaint: Lower Extremity Injury Instructions: ED Sprain Knee Prescriptions: Naproxen [Naprosyn] 500 mg PO BID PRN PRN #20 tab PRN Reason: Pain Referrals: Avinash Banda MD [Primary Care Provider] - What to do if you have Problems For any increased pain, shortness of breath, bleeding, nausea or vomiting, chest pain, or any unexpected problems, contact your Primary Care Provider. Call [facility] ([phone]) or report to the closest Emergency Room. Call 911 if necessary. 10/24/17 0119 <Electronically signed by Jackson Hilario DO> Date Donni Sulaiman DO Cosigner Signature (If Indicated): Date CC: Avinash Banad MD ALLERGIES ALLERGIES DATE TYPE / CODE NAME / CODE REACTION SEVERITY SOURCE 10/16/2018 Drug No Known Unknown [place] [facility] Allergy/416 Allergies/T82836 Hospital 394949(SNOM 0388(RXNORM) Repository ED CT) Drug NO KNOWN [facility] Class/36892 ALLERGIES Other [place] 1003(SNOMED Repository CT) NG/10575019 NO KNOWN [facility] 6(SNOMED ALLERGIES Health [facility] CT) Repository ENCOUNTERS ENCOUNTERS ADMIT/DISCHARGE ACCOUNT NUMBER ADMITTING ENCOUNTER LOCATION SOURCE CLASS 10/16/2018/10/16/19 [id number] Ambulatory BMSBuilding:B [place] 19 [facility] Repository 10/09/2018/10/09/19 [id number] Ambulatory BMSBuilding:B [place] 19 MS.[facility] Repository 10/06/2018 [id number] Inpatient BuildinA [facility] Periscope Encounter EDRoom: 2A System 444Bed: Repository [id number] 10/06/2018 [id number] Ambulatory BuildinA [facility] CATHRoom: 2A System CATHBed: Repository [id number] 09/28/2018 [id number] Ambulatory [facility] Periscope System Repository 09/17/2018/09/19/20 [id number] Bree Fernandes Inpatient Najma Najma 18 Monalisa Encounter [facility] ing:PCURoom: Repository [id number]: 1 09/17/2018 [id number] Bree Fernandes Ambulatory BMSBuilding:B Najma Monlaisa MS.[facility] Repository 09/17/2018 [id number] Bree Fernandes Ambulatory BMSBuilding:B [place] Monalisa MS.[facility] Repository 09/17/2018 [id number] Bree Fernandes Ambulatory BMSBuilding:B Najma Monalisa MS.[facility] Repository 09/17/2018 [id number] Bree Fernandes Ambulatory BMSBuilding:Eun Sheldon MS.CF.[facility] Repository 09/17/2018 [id number] DomBree Ambulatory BMSBuilding:Eun Sheldon MS.[facility] Repository 09/17/2018 [id number] KianBree del rio Ambulatory BMSBuilding:Eun Sheldon MS.[facility] Repository 09/17/2018/09/19/20 [id number] Ambulatory BMSBuilding:W [address] Repository 09/17/2018/09/19/20 [id number] Ambulatory BMSBuilding:W [address] Repository 09/17/2018 [id number] BARR, [facility] g:AKIR 09/14/2018/09/16/20 [id number] Anuel Copeland Inpatient [address] ing:PCURoom: Repository [id number]: 1 09/14/2018 [id number] Anuel Copeland Ambulatory BMSBuilding:Eun Yao MS.[facility] Repository 09/14/2018 [id number] Anuel Copeland Ambulatory BMSBuilding:Eun Yao MS.[facility] Repository 09/14/2018 [id number] Leigh, Anuel Ambulatory BMSBuilding:Eun Yao MS.[facility] Repository 09/14/2018/09/16/20 [id number] Ambulatory BMSBuilding:W [address] Repository 09/13/2018 [id number] Anuel Copeland Ambulatory BMSBuilding:Eun Yao MS.[facility] Repository 09/13/2018 [id number] Ambulatory BMSBuilding:Eun Yao MS.[facility] Repository 09/10/2018/09/10/20 [id number] Ambulatory [address] Repository 09/10/2018/09/10/20 [id number] [address] Repository g:AGVASACC 09/09/[id number] [facility] Repository 09/09/2018/09/09/20 [id number] Ambulatory [address] CENTERBuildin Repository g:AKXRUS 08/14/2018 [id number] BARR, Ambulatory [facility] CENTERBuildin Repository g:AKIR 08/12/2018/08/12/20 [id number] Ambulatory BMSBuilding:B [place] 18 MS.[facility] Repository 08/11/2018/08/11/20 [id number] Emergency [address] Hospital ing:ED Repository 08/03/2018 [id number] Ambulatory Building:[facility] Repository 08/03/2018 [id number] Ambulatory Building:[facility] Repository 07/23/2018 [id number] Ambulatory BMSBuilding:B [place] MS.[facility] Repository 07/10/2018 [id number] Ambulatory [facility] Hospital ing:SL Repository 07/10/2018/07/10/20 [id number] Ambulatory [address] Other [place] Repository 07/10/2018/07/10/20 [id number] Ambulatory [address] CENTERBuildin Repository g:AGWM 07/03/2018 [id number] Ambulatory Building:[address] [place] [address] Repository 06/26/2018/06/26/20 [id number] Ambulatory BMSBuilding:B Najma 18 MS.[facility] Repository 06/12/2018 [id number] Ambulatory [facility] Hospital ing:LABSPEC Repository 06/10/2018 [id number] [facility] ing[facility] Repository 06/10/2018 [id number] Ambulatory BMSBuilding:W [place] [facility] Hospital Repository 05/25/2018/05/25/20 [id number] Ambulatory BMSBuilding:B [place] 18 MS.[facility] Repository 05/22/2018/05/22/20 [id number] Ambulatory BMSBuilding:B [place] 18 MS.[facility] Hospital Repository 05/19/2018/05/20/20 [id number] Emergency [address] Hospital ing:ED Repository 05/19/2018/05/19/20 [id number] RADHA YU [address] Repository g:AKIRRoom: POOLBed: 04 05/19/2018/05/19/20 [id number] NIMO RADHA Ambulatory [address] Repository 05/15/2018/05/16/20 [id number] Agyeponsanjuana, Inpatient [address] ing:PCURoom: Repository [id number]: 1 05/15/2018 [id number] Agyepong, Ambulatory BMSBuilding:Eun Castanon MS.[facility] Repository 05/15/2018 [id number] Agyepong, Ambulatory BMSBuilding:Eun Castanon MS.CF[facility] Repository 05/15/2018 [id number] Agyepong, Ambulatory BMSBuilding:Eun Castanon MS.[facility] Repository 05/04/2018 [id number] [place] g:AKIR 03/09/2018 [id number] Ambulatory BMSBuilding:Eun Yao MS.[facility] Repository 02/23/2018/02/24/20 [id number] Emergency [address] ing:ED Repository 02/09/2018/02/10/20 [id number] Ambulatory BMSBuilding:Eun Patel MS.[facility] Repository 01/17/2018/01/18/[id number] Emergency [address] Healthcare SYSTEMSBuildi Repository ng:EERRoom: OV50Val: ER21-A 01/17/2018 [id number] Ambulatory [address] [place] [address] Repository 01/08/2018/01/10/20 [id number] Emergency [address] ing:ED Repository 11/26/2017 [id number] Ambulatory BMSBuilding:Eun Yao MS.[facility] Repository 11/14/2017 [id number] Ambulatory Building:[address] [place] [address] Repository 11/11/2017 [id number] [facility] Repository 11/07/2017/11/07/19 [id number] Ambulatory BMSBuilding:B [place] 18 [facility] Repository 11/01/2017 [id number] [facility] Repository 10/24/2017/10/24/19 [id number] Emergency [place] Najma 18 [facility] ing:ED Repository PAYERS PAYERS ENCOUNTER GUARANTOR PAYER SUBSCRIBER SOURCE 10/16/2018 ELIA DE LA CRUZ Primary ELIA aYo [id number] Insurance:MEDICARE HENRYDOB: [facility] [address] PART A [facility] [id number] Number: Repository [address]Pok: 330 [id number] [phone] () Date:2018-10-09 10/16/2018 Secondary NOT GIVENUNK Najma Insurance:SELF PAY [facility] Number: Effective Repository Date:2018-10-09 10/09/2018 ELIA DE LA CRUZ Primary ELIA DE LA CRUZ [place] [id number] Insurance:MEDICARE HENRYDOB: [facility] [address] PART A [facility] [id number] Number: Repository [address]Gvr: 330 [id number] [phone] () Date:2018-09-16 10/09/2018 Secondary NOT GIVENUNK [place] Insurance:SELF PAY [facility] Number: Effective Repository Date:2018-10-01 10/06/2018 Elia HenryDOB: Primary Elia HenryDOB: [employer] Insurance:MedicarePol [id number] System [address] icy Number: Effective Repository [address] [place] [address] Date: [address]Cqb: () 10/06/2018 Secondary Elia HenryDOB: [employer] [facility] Insurance:MedicarePol [id number] System icy Number: Effective Repository Date: 10/06/2018 Tertiary Elia HenryDOB: [employer] [facility] Insurance:MedicaidPol [id number] System icy Number: Effective Repository Date: 10/06/2018 Elia WestonDOB: Primary Elia WestonDOB: [employer] Insurance:MedicarePol [id number] System [address] icy Number: Effective Repository [address], [place] Date: [address]Rro: () 10/06/2018 Secondary [facility] Insurance:MedicarePol [id number] System icy Number: Effective Repository Date: 10/06/2018 Tertiary Elia [facility]DOB: [facility] Insurance:MedicaidPol [id number] System icy Number: Effective Repository Date: 09/28/2018 Elia WestonDOB: Primary Elia WestonDOB: [employer] [facility] [id number] System [address] icy Number: Effective Repository [facility] [place] [place] Date: [address]Out: () 09/28/2018 Secondary Elia WestonDOB: [facility] [id number] System icy Number: Effective Repository Date: 09/17/2018 ELIA DE LA CRUZ Primary ELIA DE LA CRUZ [place] [id number] Insurance:MEDICARE HENRYDOB: [facility] DRAPT PART A [facility] [id number] Number: Repository [address]Jad: ([phone] [id number] [phone] () Date:2018-09-16 09/17/2018 Secondary ELIA JONO [place] Insurance:MEDICAIDIrwin County HospitalB: [facility] ic Number: [id number] Hospital [id number] Repository Date:2018-09-16 09/17/2018 [facility] [place] Insurance:SELF PAY [facility] Number: Effective Repository Date:2018-09-16 09/17/2018 ELIA DE LA CRUZ Primary ELIA DE LA CRUZ [place] [id number] Insurance:MEDICARE HENRYDOB: [facility] [id number], [place] Number: Repository [address]Eeu: (026) [id number] [phone] () Date:2018-09-16 09/17/2018 Secondary ELIA DE LA CRUZ Najma Insurance:MEDICAIDPol HENRYDOB: Community icy Number: [id number] Hospital [id number] Repository Date:2018-09-16 09/17/2018 Tertiary NOT GIVENUNK Najma Insurance:SELF PAY [facility] Number: Effective Repository Date:2018-09-17 09/17/2018 ELIA DE LA CRUZ Primary ELIA DE LA CRUZ Najma [id number] Insurance:MEDICARE HENRYDOB: Community [address] PART A [facility] [id number] [place] Number: Repository [address]Zam: 330 [id number] [phone] () Date:2018-09-16 09/17/2018 Secondary ELIA DE LA CRUZ Najma Insurance:MEDICAIDPol HENRYDOB: [facility] icy Number: [id number] Hospital [id number] Repository Date:2018-09-16 09/17/2018 Tertiary NOT GIVENUNK Najma Insurance:SELF PAY [facility] Number: Effective Repository Date:2018-09-17 09/17/2018 ELIA DE LA CRUZ Primary ELIA DE LA CRUZ [place] [id number] Insurance:MEDICARE HENRYDOB: Community [address] PART A [facility] [id number], [place] Number: Repository [address]Pqv: 330 [id number] [phone] () Date:2018-09-16 09/17/2018 Secondary ELIA DE LA CRUZ Najma Insurance:MEDICAIDPol HENRYDOB: [facility] icy Number: [id number] Hospital [id number] Repository Date:2018-09-16 09/17/2018 Tertiary NOT GIVENUNK [place] Insurance:SELF PAY [facility] Number: Effective Repository Date:2018-09-17 09/17/2018 ELIA DE LA CRUZ Primary ELIA DE LA CRUZ Najma [id number] Insurance:MEDICARE HENRYDOB: Community [address] PART A [facility] [id number], [place] Number: Repository [address]Mto: 330 [id number] [phone] () Date:2018-09-16 09/17/2018 Secondary ELIA DE LA CRUZ Najma Insurance:MEDICAIDPol HENRYDOB: [facility] icy Number: [id number] Hospital [id number] Repository Date:2018-09-16 09/17/2018 Tertiary NOT GIVENUNK [place] Insurance:SELF PAY [facility] Number: Effective Repository Date:2018-09-17 09/17/2018 ELIA DE LA CRUZ Primary ELIA DE LA CRUZ [place] [id number] Insurance:MEDICARE HENRYDOB: Community [address] PART A [facility] [id number] Number: Repository [address]Nfz: 330 [id number] [phone] () Date:2018-09-16 09/17/2018 Secondary ELIA DE LA CRUZ [place] Insurance:MEDICAIDPol HENRYDOB: [facility] icy Number: [id number] Hospital [id number] Repository Date:2018-09-16 09/17/2018 Tertiary NOT GIVENUNK [place] Insurance:SELF PAY [facility] Number: Effective Repository Date:2018-09-17 09/17/2018 ELIA DE LA CRUZ Primary ELIA DE LA CRUZ Najma [id number] Insurance:MEDICARE HENRYDOB: Community [address] PART A [facility] [id number] Number: Repository [address]Hno: 330 [id number] [phone] () Date:2018-09-16 09/17/2018 Secondary ELIA DE LA CRUZ [place] Insurance:MEDICAIDPol HENRYDOB: [facility] icy Number: [id number] Hospital [id number] Repository Date:2018-09-16 09/17/2018 Tertiary NOT GIVENUNK [place] Insurance:SELF PAY [facility] Number: Effective Repository Date:2018-09-17 09/17/2018 ELIA DE LA CRUZ Primary ELIA Yao [id number] Insurance:MEDICARE HENRYDOB: Community [address] PART A [facility] [id number] Number: Repository [address]Dia: 330 [id number] [phone] () Date:2018-09-16 09/17/2018 Secondary ELIA DE LA CRUZ Najma Insurance:MEDICAIDIrwin County HospitalB: [facility] icy Number: [id number] Hospital [id number] Repository Date:2018-09-16 09/17/2018 Tertiary NOT GIVENUNK Najma Insurance:SELF PAY [facility] Number: Effective Repository Date:2018-09-17 09/17/2018 ELIA DE LA CRUZ Primary ELIA DE LA CRUZ Najma [id number] Insurance:[facility] [address] PART A [facility] [id number] Number: Repository [address]Tin: (199) [id number] [phone] () Date:2018-09-16 09/17/2018 Secondary ELIA DE LA CRUZ Najma Insurance:MEDICAIDPol HENRYDOB: [facility] ic Number: [id number] Hospital [id number] Repository Date:2018-09-16 09/17/2018 Tertiary NOT GIVENUNK [place] Insurance:SELF PAY [facility] Number: Effective Repository Date:2018-09-17 09/17/2018 ELIA L Primary ELIA L [facility] SEALYDOB: Insurance:MEDICARE A [facility] AND [facility] Number: [id number] [address] [id number] [address] [place] [address] Date: 350[address]Wfh: () 09/17/2018 Secondary ELIA L [facility] Insurance:[facility]: Health System MEDICAIDPolicy [id number] Repository Number: [id number] Date: 09/14/2018 ELIA L Primary ELIA L [place] [id number] Insurance:[facility]ICARE [facility]: [facility] [address] PART A [facility] [id number] Number: Repository [address]Iin: (831) [id number] [phone] () Date:2018-09-13 09/14/2018 Secondary NOT GIVENUNK Najma Insurance:SELF PAY [facility] Number: Effective Repository Date:2018-09-13 09/14/2018 ELIA DE LA CRUZ Primary ELIA DE LA CRUZ [place] [id number] Insurance:MEDICARE HENRYDOB: Community [address] PART A [facility] [id number] [place] Number: Repository [address]Jnw: 330 [id number] [phone] () Date:2018-09-13 09/14/2018 Secondary NOT GIVENUNK Najma Insurance:SELF PAY [facility] Number: Effective Repository Date:2018-09-14 09/14/2018 ELIA DE LA CRUZ Primary ELIA DE LA CRUZ [place] [id number] Insurance:MEDICARE HENRYDOB: Community [address] PART A [facility] [id number] Number: Repository [address]Fqy: 330 [id number] [phone] () Date:2018-09-13 09/14/2018 Secondary NOT GIVENUNK Najma Insurance:SELF PAY [facility] Number: Effective Repository Date:2018-09-14 09/14/2018 ELIA DE LA CRUZ Primary ELIA DE LA CRUZ [place] [id number] Insurance:MEDICARE HENRYDOB: Community [address] PART A [facility] [id number] [place] Number: Repository [address]Zsm: 330 [id number] [phone] () Date:2018-09-13 09/14/2018 Secondary NOT GIVENUNK [place] Insurance:SELF PAY [facility] Number: Effective Repository Date:2018-09-14 09/14/2018 ELIA DE LA CRUZ Primary ELIA DE LA CRUZ [place] [id number] Insurance:MEDICARE HENRYDOB: Community [address] PART A [facility] [id number] Number: Repository [address]Cuu: 330 [id number] [phone] () Date:2018-09-13 09/14/2018 Secondary NOT GIVENUNK Najma Insurance:SELF PAY [facility] Number: Effective Repository Date:2018-09-14 09/13/2018 ELIA Herrera Primary ELIA L Najma [id number] Insurance:MEDICARE HENRYDOB: Community [address] PART A [facility] [id number], [place] Number: Repository [address]Edz: 330 [id number] [phone] () Date:2018-09-13 09/13/2018 Secondary NOT GIVENUNK [place] Insurance:SELF PAY [facility] Number: Effective Repository Date:2018-09-13 09/13/2018 ELIA L Primary ELIA L Najma [id number] Insurance:MEDICARE HENRYDOB: [facility] [address] PART A [facility] [id number] [address], [place] Number: Repository [address]Ngy: 330 [id number] [phone] () Date:2018-09-13 09/13/2018 Secondary NOT GIVENUNK [place] Insurance:SELF PAY [facility] Number: Effective Repository Date:2018-09-13 09/10/2018 ELIA L Primary ELIA L [facility] SEALYDOB: Insurance:MEDICARE A [facility]: [facility] AND BPolicy Number: [id number] Repository [address] [id number] [address] [place] [address] Date: 22920Cdx: () 09/10/2018 Secondary ELIA L [facility] Insurance:[facility]: Health System MEDICAIDPolicy [id number] Repository Number: [id number] Date: 09/09/2018 ELIA L Primary ELIA L [facility] SEALYDOB: Insurance:MEDICARE A [facility]: [facility] AND BPolicy Number: [id number] Repository [address] [id number] [address] [place] [address] Date: 02123Uzq: () 09/09/2018 Secondary ELIA L [facility] Insurance:[facility]: Health System MEDICAIDPolicy [id number] Repository Number: [id number] Date: 08/14/2018 ELIA L Primary ELIA L [facility] HENRYDOB: Insurance:MEDICARE A [facility]: [facility] AND BPolicy Number: [id number] Repository [address] [id number] [address] [place] [address] Date: 40547Vow: () 08/14/2018 Secondary ELIA [facility] Insurance:[facility]: Health System MEDICAIDPolicy [id number] Repository Number: [id number] Date: 08/12/2018 ELIA Herrera Primary ELIA Herrera Najma [id number] Insurance:MEDICARE HENRYDOB: [facility] PART A [facility] [id number] Number: Repository [address]Oeb: [phone] [id number] [phone] () Date:2018-08-12 08/12/2018 Secondary NOT GIVENUNK Najma Insurance:SELF PAY [facility] Number: Effective Repository Date:2018-08-12 08/11/2018 ELIA DE LA CRUZ Primary ELIA DE LA CRUZ [place] [id number] Insurance:MEDICARE HENRYDOB: [facility] PART A [facility] [id number] Number: Repository [address]Fhr: 330 [id number] [phone] () Date:2018-08-11 08/11/2018 Secondary ELIA Yao Insurance:MEDICAIDPol HENRYDOB: [facility] Number: [id number] Hospital [id number] Repository Date:2018-08-11 08/11/2018 Tertiary NOT GIVENUNK Najma Insurance:SELF PAY [facility] Number: Effective Repository Date:2018-08-11 08/03/2018 ELIA L Primary [facility] L [facility] Insurance:[facility]ARE [facility]: [place] AND [facility] Number: [id number] [facility] [id number] [address] [place] [address], Date:[id number], Repository [place] [address]Nia: Name:[facility] [address]Xju: () (HP) 08/03/2018 ELIA L Primary ELIA L [place] HENRYDOB: Insurance:MEDICARE A [facility]: [place] AND BPolicy Number: [id number] [facility]out[facility] [employer] [facility]OSPITALS[facility] [id number] [address] [place] [address], Date:2842-44-31Mlto [address], Repository [place] [address]Owt: Name:[facility] [address]Oup: () (HP) 07/23/2018 ELIA L Primary ELIA L [place] [id number] Insurance:[facility]ARE [facility]: [facility] N[address] PART A [facility] [id number] Number: Repository [address]Anq: 330 [id number] [phone] () Date:2018-06-26 07/23/2018 Secondary NOT GIVENUNK [place] Insurance:SELF PAY [facility] Number: Effective Repository Date:2018-07-16 07/10/2018 ELIA L Primary ELIA L [place] [id number] Insurance:MEDICARE HENRYDOB: [facility] [address] PART A [facility] [id number] Number: Repository [address]Vow: 330 [id number] [phone] () Date:2018-06-26 07/10/2018 Secondary NOT GIVENUNK Najma Insurance:SELF PAY [facility] Number: Effective Repository Date:2018-06-26 07/10/2018 ELIA L Primary ELIA L [facility] Insurance:MEDICARE A [facility]: [facility] AND BPolicy Number: [id number] [facility] CenterAND DRTOO[facility] [id number] [address] [place] [address] Date: 09[address]Ajv: () 07/03/2018 ELIA L Primary ELIA L [facility]: Insurance:MEDICARE A [facility]: [place] AND BPolicy Number: [id number] [facility]out[facility] [employer] [facility] MED[facility] CENTERTindie [facility] [id number] [address] [place] [address], Date:6060-48-94True [address], Repository [place] [address]Obr: Name:[facility] [id number]: () (HP) 06/26/2018 ELIA Herrera Primary ELIA Herrera [place] [id number] Insurance:MEDICARE HENRYDOB: [facility] [address] PART A [facility] [id number] Number: Repository [address]Eag: (030) [id number] [phone] () Date:2018-06-24 06/26/2018 Secondary ELIA L Najma Insurance:MEDICAIDPol HENRYDOB: [facility] Number: [id number] Hospital [id number] Repository Date:2018-06-24 06/26/2018 Tertiary NOT GIVENUNK Najma Insurance:SELF PAY [facility] Number: Effective Repository Date:2018-06-26 06/12/2018 ELIA L Primary NOT GIVENUNK [place] [id number] Insurance:SELF PAY [address], [place] Number: Effective Repository [phone]: 330) Date:2018-06-12 [phone] () 06/10/2018 ELIA L Primary ELIA L Naj[place] [id number] Insurance:MEDICARE HENRYDOB: [facility] [address] PART A [facility] [id number], [place] Number: Repository [address]Ycx: 330 [id number] [phone] () Date:2018-05-28 06/10/2018 Secondary NOT GIVENUNK Najma Insurance:SELF PAY [facility] Number: Effective Repository Date:2018-05-28 06/10/2018 ELIA L Primary ELIA L [place] [id number] Insurance:MEDICARE HENRYDOB: [facility] [address] PART A [facility] [id number], [place] Number: Repository [address]Pqo: [phone] [id number] [phone] () Date:2018-05-28 06/10/2018 Secondary NOT GIVENUNK [place] Insurance:SELF PAY [facility] Number: Effective Repository Date:2018-06-10 05/25/2018 ELIA L Primary ELIA L N[place] [id number] Insurance:MEDICARE HENRYDOB: [facility] [address] PART A [facility] [id number], [place] Number: Repository [address]Hxv: 330 [id number] [phone] () Date:2018-05-22 05/25/2018 Secondary ELIA L Naj[place] Insurance:MEDICAIDPol HENRYDOB: [facility] icy Number: [id number] Hospital [id number] Repository Date:2018-05-22 05/25/2018 Tertiary NOT GIVENUNK [place] Insurance:SELF PAY [facility] Number: Effective Repository Date:2018-05-25 05/22/2018 ELIA L Primary ELIA L Najma [id number] Insurance:MEDICARE HENRYDOB: [facility] [address] PART A [facility] [id number], [place] Number: Repository [address]Aat: 330 [id number] [phone] () Date:2018-05-22 05/22/2018 Secondary ELIA L Naj[place] Insurance:MEDICAIDPol SEALYDOB: [facility] icy Number: [id number] Hospital [id number] Repository Date:2018-05-22 05/22/2018 Tertiary NOT GIVENUNK [place] Insurance:SELF PAY [facility] Number: Effective Repository Date:2018-05-22 05/19/2018 ELIA L Primary ELIA L [place] [id number] Insurance:MEDICARE HENRYDOB: [facility] [address] PART A [facility] [id number] Number: Repository [address]Oga: 330 [id number] [phone] () Date:2018-05-19 05/19/2018 Secondary ELIA L Najma Insurance:MEDICAIDPol HENRYDOB: [facility] icy Number: [id number] [facility] [id number] Repository Date:2018-05-19 05/19/2018 Tertiary NOT GIVENUNK Najma Insurance:SELF PAY [facility] Number: Effective Repository Date:2018-05-19 05/19/2018 ELIA L Primary ELIA [facility] HENRYDOB: [facility]: [id number] [id number] Date: [phone]: () 05/15/2018 ELIA L Primary ELIA L [place] [id number] Insurance:MEDICARE HENRYDOB: [facility] [address] PART A [facility] [id number] Number: Repository [address]Hfx: 330 [id number] [phone] () Date:2018-05-15 05/15/2018 Secondary ELIA L [place] Insurance:MEDICAIDPol [facility] ic Number: [id number] [facility] [id number] Repository Date:2018-05-15 05/15/2018 Tertiary NOT GIVENUNK Najma Insurance:SELF PAY [facility] Number: Effective Repository Date:2018-05-15 05/15/2018 ELIA L Primary ELIA L [place] [id number] Insurance:MEDICARE HENRYDOB: [facility] [address] PART A [facility] [id number] [place] Number: Repository [address]Lgm: 330 [id number] [phone] () Date:2018-05-15 05/15/2018 Secondary ELIA L [place] [facility] ic Number: [id number] Hospital [id number] Repository Date:2018-04-29 05/15/2018 Tertiary NOT GIVENUNK [place] Insurance:SELF PAY [facility] Number: Effective Repository Date:2018-05-15 05/15/2018 ELIA L Primary ELIA L [place] [id number] Insurance:MEDICARE HENRYDOB: [facility] [address] PART A [facility] [id number] Number: Repository [address]Hmn: [phone] [id number] [phone] () Date:2018-05-15 05/15/2018 Secondary NOT GIVENUNK Najma Insurance:SELF PAY [facility]: Effective Repository Date:2018-05-15 05/15/2018 ELIA L Primary ELIA L N[place] [id number] Insurance:MEDICARE SEALYDOB: [facility] [address] PART A [facility] [id number] Number: Repository [address]Irp: 330 [id number] [phone] () Date:2018-05-15 05/15/2018 Secondary ELIA L [place] Insurance:MEDICAIDPol HENRYDOB: [facility] Number: [id number] Hospital [id number] Repository Date:2018-04-29 05/15/2018 Tertiary NOT GIVENUNK [place] Insurance:SELF PAY [facility] Number: Effective Repository Date:2018-05-15 05/04/2018 ELIA L Primary ELIA L [place] [facility] SEALYDOB: Insurance[facility] Number: [id number] [facility] [id number] Date: [address]Etw: () 05/04/2018 Secondary ELIA L [place] [facility] MEDICAIDPolicy [id number] Repository Number: [id number] Date: 03/09/2018 ELIA L Primary ELIA L [place] [id number] Insurance:MEDICARE SEALYDOB: [facility] [address] PART A [facility] [id number] [place] Number: Repository [address]Nro: 330 [id number] [phone] () Date:2018-02-09 03/09/2018 Secondary NOT GIVENUNK [place] Insurance:SELF PAY [facility] Number: Effective Repository Date:2018-02-09 02/23/2018 ELIA L Primary ELIA L [place] [id number] Insurance:MEDICARE HENRYDOB: [facility] [address] PART A [facility] [id number] Number: Repository [address]Vjk: [phone] [id number] [phone] () Date:2018-02-23 02/23/2018 Secondary ELIA L [place] Insurance:MEDICAIDPol HENRYDOB: [facility] icy Number: [id number] Hospital [id number] Repository Date:2018-02-23 02/23/2018 Tertiary NOT GIVENUNK Najma Insurance:SELF PAY [facility] Number: Effective Repository Date:2018-02-23 02/09/2018 ELIA L Primary ELIA Herrera Najma [id number] Insurance:MEDICARE HENRYDOB: [facility] [address] PART A [facility] [id number] Hospital [place] Number: Repository [address]Pyd: 330 [id number] [phone] () Date:2018-01-21 02/09/2018 Secondary NOT GIVENUNK Najma Insurance:SELF PAY [facility] Number: Effective Repository Date:2018-02-09 01/17/2018 ELIA MELENDEZB: Primary ELIA WESTONDOB: [facility] Healthcare Insurance:MEDICARE^L^ [id number] [id number]^^^[id number] [address], [place] Number: [address], [place] [address]Wfy: [phone] [id number]: () Date:Plan Name:[facility] 51 () [facility] [address], [place] [address]IK: 01/17/2018 Secondary ELIA MELENDEZB: [facility] Healthcare Insurance:MEDICARE^L^ [id number] Repository 248^^^[id number]^XXPolicy [address] Number: [address] [id number] Date:Plan Name:[facility] [address], [place] [address]VK: 01/17/2018 ELIA MELENDEZB: Primary ELIA MELENDEZB: [place] Insurance:MedicarePol [id number] icy Number: [address]ository [address], [place] [id number] [address], [place] [address]Hoy: [phone]) Date:Plan Name:[facility] [id number]: (HP) [phone] () 01/17/2018 Secondary ELIA HENRYDOB: [facility] [id number] Hospitals icy Number: 2 [facility] Repository [id number] Date:Plan Name:[facility] [address]Kgp: [phone] () 01/17/2018 Tertiary NOT GIVENUNK [place] [facility] Number: Effective Repository Date:Plan Name:[facility] [address], [place] [address]BQ: 01/08/2018 ELIA L Primary ELIA L Najma [id number] Insurance:MEDICARE SEALYDOB: [facility] [address] PART A [facility] [id number] Number: Repository [address]Vbb: 330) [id number] [phone] () Date:2018-01-08 01/08/2018 Secondary ELIA L Naj[place] [facility] icy Number: [id number] Hospital [id number] Repository Date:2018-01-08 01/08/2018 Tertiary NOT GIVENUNK [place] Insurance:SELF PAY [facility] Number: Effective Repository Date:2018-01-08 11/26/2017 ELIA [id number] Primary ELIA HENRYDOB: [place] [address] Insurance:MEDICARE [id number] [address] PART A [facility] [id number]: (330) Number: Repository [phone] () [id number] Date:2017-11-03 11/26/2017 Secondary NOT GIVENUNK Najma Insurance:SELF PAY [facility] Number: Effective Repository Date:2017-11-03 11/11/2017 ELIA [id number] Primary ELIA WESTONDOB: Najma [address] Insurance:MEDICARE [id number] [address] PART A [facility] [address]Wcd: (330) Number: Repository [phone] () [id number] Date:2017-10-29 11/11/2017 Secondary NOT GIVENUNK [place] Insurance:SELF PAY [facility] Number: Effective Repository Date:2017-10-29 11/07/2017 ELIA CLANCY2 Primary ELIA MELENDEZB: [place] [address] Insurance:MEDICARE [id number] [address] PART A [place] [id number]: (330) Number: Repository [phone] () [id number] Date:2017-10-10 11/07/2017 Secondary NOT GIVENUNK Najma Insurance:SELF PAY [facility] Number: Effective Repository Date:2017-10-10 11/01/2017 ELIA CLANCY2 Primary ELIA MELENDEZB: Naj[place] [address] Insurance:MEDICARE [id number] PART A [place] [id number]: (330) Number: Repository [phone] () [id number] Date:2017-10-23 11/01/2017 Secondary NOT GIVENUNK [place] Insurance:SELF PAY [facility] Number: Effective Repository Date:2017-10-23 10/24/2017 ELIA Herrera Primary ELIA [id number] Insurance:MEDICARE ENRICODOB: Community [address] PART A [facility] [id number] Number: Repository [address]Ape: 330) [id number] [phone] () Date:2017-10-24 10/24/2017 Secondary NOT GIVENUNK Najma Insurance:SELF PAY [facility] Number: Effective Repository Date:2017-10-24
== END 2018-09-16 12:24 | disposition home or self-care (01) | DRG 314 ==
LOC: ED 01:29 → PCU 05:21
PROVIDERS: Admitting Provider Internal Medicine; Emergency Provider Emergency Medicine; Family Provider Internal Medicine; PCP Internal Medicine; Visit Provider Internal Medicine
DX: T82.898A Other specified complication of vascular prosthetic devices, implants and grafts, initial encounter (principal); J10.01 Influenza due to other identified influenza virus with the same other identified influenza virus pneumonia; N18.6 End stage renal disease; I12.0 Hypertensive chronic kidney disease with stage 5 chronic kidney disease or end stage renal disease; Z68.41 Body mass index [BMI] 40.0-44.9, adult; N25.81 Secondary hyperparathyroidism of renal origin; E87.5 Hyperkalemia; E66.01 Morbid (severe) obesity due to excess calories; R07.89 Other chest pain; G47.33 Obstructive sleep apnea (adult) (pediatric); H91.93 Unspecified hearing loss, bilateral; D63.1 Anemia in chronic kidney disease; Z99.2 Dependence on renal dialysis; Z87.891 Personal history of nicotine dependence; Z86.711 Personal history of pulmonary embolism
CPT/HCPCS: 36415; 71046; 78452; 80048; 80053; 80061; 80069; 80202; 83605; 83880; 84443; 84484; 85025; 85027; 85379; 85610; 85652; 85730; 86038; 86140; 86225; 86235; 86431; 87040; 87149; 87804; 90937; 93005; 93017; 93306; 94002; 94640; 94660; 99285; A9500; J1756; J7030; J7040; Q9957; A4216; C8929; G0257; J2785

== ENCOUNTER 2018-09-16 17:05 | Inpatient (IN) | payer MEDICARE, MEDICAID, SELFPAY ==
[2018-09-13 06:07] VITALS: BMI 42.3
[2018-09-16] VITALS (10 sets, daily range): BP systolic 81–134; BP diastolic 36–70; PULSE 78–122; RESP 15–18; TEMP 36.6–36.7; O2SAT 95–100; BMI 39.3; BMI 42.6
--- NOTE | 2018-09-16 17:43 | EKG12_ITS ---
Test Reason : Blood Pressure : / mmHG Vent. Rate : 100 BPM Atrial Rate : 100 BPM P-R Int : 288 ms QRS Dur : 070 ms QT Int : 316 ms P-R-T Axes : 069 039 044 degrees QTc Int : 407 ms Sinus rhythm with 1st degree A-V block Low voltage QRS Cannot rule out Anteroseptal infarct , age undetermined Abnormal ECG Confirmed by SALMA STAHL, JACOBY ([id number]), city editor MIKI PAULINO ([id number]) on 09/18/2018 1:56:34 PM Referred By: Bree Fernandes Confirmed By:JACOBY MARSH MD
--- NOTE | 2018-09-16 17:45 | RAD_ITS ---
STUDY: X-RAY CHEST REASON FOR EXAM: Male, 38 years old. Doesn't feel well, short of breath TECHNIQUE: Single AP portable view of the chest. COMPARISON: Previous study of 09/13/2018 FINDINGS: quality assurance monitor leads are seen. There is a hazy right middle lobe infiltrate, appearing similar to the previous study. There is no demonstrated pleural abnormality. Normal size heart. Normal mediastinum and michael. Normal visualized pulmonary arteries. Normal visualized aortic arch and descending thoracic aorta. There is a moderately severe lower thoracic dextroscoliosis. Normal visualized ribs, clavicles, and shoulders. There is no demonstrated abnormality of the visualized soft tissue structures of the upper abdomen. RAD/Chest 1 View (Portable) IMPRESSION: Hazy right middle lobe infiltrate, appearing similar to the previous study. Moderately severe thoracic dextroscoliosis. Electronically Signed: Salvador Carrero MD at 18:25 EST , Service support ,
--- NOTE | 2018-09-16 17:56 | ED.DCSUM_ITS ---
- ER Visit Summary Date of Service: 09/16/18 Chief Complaint: [] Generalized weakness low blood pressure recent pneumonia end-stage renal disease History of Present Illness: The patient is a 29 F [] hypertension end-stage renal disease dialysis schedule Friday indicates he was admitted to the hospital recently and discharged this afternoon after being admitted for chest pain weakness he was indicates he was told he may have the flu he indicates he was discharged this afternoon a few hours ago even though he claims he was not feeling well when he was discharged, he went directly to the dialysis center as his last dialysis was Friday and he was due for dialysis today on arrival there he believes his blood pressure was low he was dialyzed for about 3 hours, he indicates his dry weight is around 128 and he believes his current weight is 132-134 kg, he believes he was given a fluid bolus when his blood pressure fell to 70, he presents the emergency department the blood pressure of about 90 over palp complaining of just generalized fatigue no chest pain no fever no cough Physical Examination: [] 98/64 afebrile pulse ox 99 on room air General, no distress resting comfortably HEENT is generally unremarkable The neck is supple no adenopathy Cardiovascular, regular rate and rhythm Lungs, clear bilateral Abdomen, soft nontender Extremities, no clubbing cyanosis or edema Neurologic, awake alert answering questions appropriately moving all 4 extremities Given his complaints his low blood pressure here he will receive IV fluid screening labs we will asked the hospitalist see him for further management Test Results: [] Emergency Department Course and Treatment: [] Screening labs are are generally unremarkable for him except for his troponin which is elevated to about 0.3 this is elevated from his baseline, the chest x-ray shows per radiology persistence of the right-sided infiltrate, the patient remains hemodynamically stable here given all the above we will ask hospice and further management admission Treatment Plan: [] Disposition: [] Admit Impression: [] Hypotension, generalized fatigue, abnormal troponin, right sided pneumonia infiltrate recent admission for the above, history of hypertension end-stage renal disease This note was generated with [employer] dictation software. It may contain incorrect words, spelling, and punctuation that were not noted in review of the chart prior to signing ED Disposition - Plan for ED Patient: Chief Complaint: Shortness of Breath Referrals: Pawel Banda MD [Primary Care Provider] -
[2018-09-16 18:06] LABS: Absolute Lymphocyte Count 0.95 X10^3/ul (0.83-4.51); Absolute Neutrophil Count 5.3 X10^3/uL (2.0-7.7); Basophil# 0.01 X10^3/uL; Basophil% 0.1 % (0-1); Eosinophil# 0.12 X10^3/uL; Eosinophils% 1.6 % (0-5); Hematocrit 34.7 % (40-54); Hemoglobin 10.7 g/dl (13.0-16.5); Lymphocyte # 0.95 X10^3/ul (4.0); Lymphocyte % 12.5 % (19-41); Mean Corp Hgb Conc 30.8 g/gl (32-36); Mean Corpuscular Hgb 27.6 pg (27.0-32.0); Mean Corpuscular Volume 89.7 fL (80-94); Monocyte# 1.27 X10^3/uL; Monocyte% 16.6 % (0-10); Neutrophil # 5.27 X10^3/uL (2.7-7.7); Neutrophil % 69.1 % (47-70); POSITIVE COUNT NO; POSITIVE DIFFERENTIAL NO; POSITIVE MORPHOLOGY NO; Platelet Count 186 K/mm3 (150-450); RBC Distribution Width CV 16.8 % (11.6-14.6); RBC Distribution Width SD 54.8 fl (35.1-43.9); Red Blood Count 3.87 M/mm3 (4.6-6.2); White Blood Count 7.6 K/mm3 (4.4-11.0)
[2018-09-16 18:13] LABS: Anion Gap 13 (5-15); BUN 48 mg/dL (7-18); BUN/Creat Ratio 4.7 RATIO (10-20); Calcium,Total 8.2 mg/dL (8.5-10.1); Chloride 97 mmol/L (98-107); EST Glomerular Filtration Rate 6 mL/min (>60); Est Glom Filt Rate - Afr Amer 7 mL/min (>60); Estimated Creatinine Clearance 10.56 ml/min; Glucose 84 mg/dL (74-106); Potassium 4.6 mmol/L (3.5-5.1); Sodium Level 138 mmol/L (136-145)
--- NOTE | 2018-09-16 20:04 | PN_ITS ---
Subjective: Patient is a 38-year-old male with past medical history of ESRD on hemodialysis on Wednesdays, YEIMY, hyperparathyroidism due to renal insufficiency, anemia of chronic disease, hypertension and YEIMY. He was admitted to the hospital via the ED on 09/16/2018 with a complaint of hypotension during dialysis. Patient had been discharged just a few hours prior from [facility] after he was admitted and managed for influenza B infection and also chest pain which was thought to be due to clotted fistula in the left upper extremity. He was subsequently discharged to go for dialysis at his outpatient center. During dialysis, patient states he became lightheaded and dizzy and was noted that his blood pressure dropped to the 60s systolic. Dialysis was therefore aborted and he was rushed to the ED. His usual dry weight is 128 kg but he states his weight is at time he was leaving the dialysis center was 134 kg. Vitals in the ED showed BP of 81/36, and labs showed Cr of 10.30, and initial troponin was 0.238. He is being admitted to be managed for hypotension. Vitals/I&O's: Vital Signs Temp Pulse Resp BP Pulse Ox 97.8 F 78 15 98/64 95 09/16/18 17:06 09/16/18 17:06 09/16/18 17:06 09/16/18 17:06 09/16/18 18:06 Oxygen Delivery Method Room Air Weight: 282 lb Body Mass Index (BMI) 39.3 General: Alert, Oriented x3, Cooperative, No apparent distress HEENT: Atraumatic, PERRLA, EOMI, Normocephalic Oral: Moist Mucosa Neck: Supple, No JVD, Negative Carotid Bruits Lungs: - - mildly decreased breath sounds in lower lung page bilaterally Cardiovascular: Regular rate, Regular Rhythm, Normal S1, Normal S2, No murmurs Abdomen: Bowel Sounds Present, Soft, Non Tender, Non-Distended, No Hepato- splenomegaly Extremities: No clubbing, No cyanosis, No edema, Capillary Refill Less than 3 Seconds, - - nonfunctioning AV fistulae in UEs bilaterally. dialysis catheter in left groin Skin: No rashes, No breakdown Musculoskeletal: No Tenderness to Palpation of Joints or Extremities Lymphatic: No Cervical, Supraclavicular, or Inguinal Adenopathy Neurological: Cranial nerves II-XII grossly intact, Neuro grossly intact, Motor Exam 5/5 strength throughout Psych/Mental Status: Normal Affect, Appropriate, Alert and oriented to time, place, person, mood and affect Laboratory Results 09/16/18 17:37: WBC 7.6, RBC 3.87 L, Hgb 10.7 L, Hct 34.7 L, MCV 89.7, MCH 27.6, MCHC 30.8 L, RDW 16.8 H, RDW Differential 54.8 H, Plt Count 186, MPV 11.0, Immature Gran % (Auto) 0.100, Neut % (Auto) 69.1, Lymph % (Auto) 12.5 L, [place] % (Auto) 16.6 H, Eos % (Auto) 1.6, Baso % (Auto) 0.1, Absolute Neuts (auto) 5.3, Absolute Lymphs (auto) 0.95, Total Counted Not Reportable 09/16/18 17:37: Sodium 138, Potassium 4.6, Chloride 97 L, Carbon Dioxide 28.0, Anion Gap 13, BUN 48 H, Creatinine 10.30 H*, Estim Creat Clear Calc 10.56, Est GFR (MDRD) Af Amer 7 L, Est GFR (MDRD) Non-Af 6 L, BUN/Creatinine Ratio 4.7 L, Glucose 84, Calcium 8.2 L, Troponin I 0.238 H Diagnostic Data Chest X-Ray 09/16/18 17:45 IMPRESSION: Hazy right middle lobe infiltrate, appearing similar to the previous study. Moderately severe thoracic dextroscoliosis. Electronically Signed: Salvador Carrero MD at 18:25 EST , Service support , Current Medications Sodium Chloride () 500 mls @ 0 mls/hr IV .Q0M MACY Last Admin: 09/16/18 17:53 Dose: 500 mls/hr Medical Necessity - Tobacco Use Smoking Status: Never smoker Tobacco Use: Non-smoker Assessment/Plan All Active Problems (Last Reviewed 09/13/18 @ 05:00 by Anuel Abraham MD) HCAP (healthcare-associated pneumonia) (Acute) Chest pain at rest (Acute) Hyperkalemia (Acute) Chronic kidney disease-mineral and bone disorder (Acute) Junctional tachycardia (Acute) Dyspnea (Acute) Clotted dialysis access (Acute) History of blood clots (Acute) Acute viral bronchitis (Acute) Chest pain, musculoskeletal (Acute) Chest pain (Acute) 38 y/o presentign with a complaitn of hypotension during dialysis session. 1. Hypotension due to prossible dialysis dysequilibrium * was discharged earlier today and went to dialysis center. Became hypotensive during dialysis, with BP going down to 60s systolic, according to patient * didnt get down to dry weight, with weight being ~ 124kg on dmission; says dry weight is 128kg * BP came up to 80s and 90s sytolic after he received bolus of IVF * hydate with IVF * consult nephrology for dialysis. * 2. ESRD on hemodialysis: As under 1. Dialysis catheter is in left groin. 3. Chest pain: This is chronic. Was thought to be due to clotted fistula in left upper extremity during last admission. Will monitor. On oxycodone. 4. Clotted left upper extremity fistula: Scheduled for declotting to be done. Follow-up with credit and collection manager and vascular surgeon on outpatient basis. 5. Hypertension: On carvedilol. 6. Influenza B infection: Was discharged today and given a prescription for oseltamivir. Will continue. 7. Bone mineral disorder due to ESRD: On cinacalcet 8. Anemia of chronic disease: Likely due to ESRD. On further considered. DVT prophylaxis: Heparin Code Visit OBSV E&M: 58791 Initial observation care L3
[2018-09-16] MEDS: 0.9% Normal Saline 1,000 ML 75 ML IV (22:39)
[2018-09-16] MEDS: Heparin Injection (Vial) 5,000 UNIT/ML VIAL 5000 UNIT SC (22:39)
[2018-09-16] MEDS: Acetaminophen 325 MG Tablet 650 MG PO (22:39)
[2018-09-17] VITALS (23 sets, daily range): BP systolic 86–153; BP diastolic 43–100; PULSE 95–124; RESP 15–23; TEMP 36.4–37.2; O2SAT 95–100
[2018-09-17] MEDS: Heparin Injection (Vial) 5,000 UNIT/ML VIAL 5000 UNIT SC ×2 (06:12→21:01)
[2018-09-17 07:45] LABS: Absolute Lymphocyte Count 1.25 X10^3/ul (0.83-4.51); Absolute Neutrophil Count 3.8 X10^3/uL (2.0-7.7); Basophil# 0.01 X10^3/uL; Basophil% 0.2 % (0-1); Eosinophil# 0.12 X10^3/uL; Eosinophils% 1.8 % (0-5); Hematocrit 36.5 % (40-54); Hemoglobin 11.2 g/dl (13.0-16.5); Lymphocyte # 1.25 X10^3/ul (4.0); Lymphocyte % 18.9 % (19-41); Mean Corp Hgb Conc 30.7 g/gl (32-36); Mean Corpuscular Hgb 27.7 pg (27.0-32.0); Mean Corpuscular Volume 90.1 fL (80-94); Mean Platelet Vol. 10.9 fl (6.2-12.0); Monocyte# 1.44 X10^3/uL; Monocyte% 21.8 % (0-10); Neutrophil # 3.76 X10^3/uL (2.7-7.7); Platelet Count 160 K/mm3 (150-450); RBC Distribution Width CV 16.6 % (11.6-14.6); RBC Distribution Width SD 54.3 fl (35.1-43.9); Red Blood Count 4.05 M/mm3 (4.6-6.2); White Blood Count 6.6 K/mm3 (4.4-11.0)
[2018-09-17 07:49] LABS: POSITIVE COUNT NO; POSITIVE DIFFERENTIAL NO; POSITIVE MORPHOLOGY NO
[2018-09-17 08:12] LABS: Albumin, Serum 2.6 g/dL (3.2-5.0); BUN 56 mg/dL (7-18); BUN/Creat Ratio 4.8 RATIO (10-20); Calcium,Total 8.2 mg/dL (8.5-10.1); Chloride 100 mmol/L (98-107); EST Glomerular Filtration Rate 5 mL/min (>60); Est Glom Filt Rate - Afr Amer 6 mL/min (>60); Estimated Creatinine Clearance 9.01 ml/min; Glucose 81 mg/dL (74-106); Phosphorus 8.5 mg/dL (2.5-4.9); Potassium 5.5 mmol/L (3.5-5.1); Sodium Level 138 mmol/L (136-145)
--- NOTE | 2018-09-17 10:25 | CT_ITS ---
STUDY: CTA CHEST REASON FOR EXAM: Male, 38 years old. Chest pain RADIATION DOSAGE (If Supplied By Facility): CTDIvol = ( 118.54 ) mGy, DLP = ( 1080.85 ) mGycm TECHNIQUE: The examination was performed with the intravenous administration of 100 ml of Isovue 370 contrast material. Post-processing of the angiographic images was performed, with multiplanar reformation and 3D reconstruction. Individualized dose optimization techniques were used for this CT. COMPARISON: Prior study of 08/11/2018 FINDINGS: The study is technically limited due to large body habitus. Normal enhancement of the main pulmonary artery and right and left pulmonary arteries. There is limited enhancement of the bilateral peripheral pulmonary arteries. There is no demonstrated pulmonary embolism. Normal thoracic aorta and visualized great vessels. There is no demonstrated aortic dissection. Cardiac valvular calcifications are present. The heart size is within normal limits. There is no pericardial effusion. Normal mediastinum. Normal hilar regions. Normal visualized trachea and bronchi. The lungs are well expanded. There is a 1.4 x 1.7 cm pleural-based nodule of the posteromedial left lung base, similar to the previous study. There is mild associated adjacent pleural thickening. There are extensive dilated venous collaterals throughout the superficial soft tissues. There is a thoracolumbar dextroscoliosis. Normal visualized upper abdomen. CT/CTA Chest W/WO Contrast IMPRESSION: Limited study secondary to large body habitus and suboptimal contrast bolus timing. The study is essentially nondiagnostic for evaluation of the pulmonary arteries. There are extensive dilated venous collaterals throughout the superficial soft tissues. There is a 1.4 x 1.7 cm pleural-based nodule in the posteromedial left lung base with associated adjacent pleural thickening, appearing similar to the previous study. Electronically Signed: Salvador Carrero MD at 19:18 EST , Service support ,
--- NOTE | 2018-09-17 10:26 | EKG12_ITS ---
Test Reason : CP Blood Pressure : / mmHG Vent. Rate : 124 BPM Atrial Rate : 120 BPM P-R Int : 000 ms QRS Dur : 082 ms QT Int : 296 ms P-R-T Axes : 000 139 051 degrees QTc Int : 425 ms Accelerated Junctional rhythm with retrograde conduction Right axis deviation Pulmonary disease pattern Septal infarct , age undetermined Abnormal ECG When compared with ECG of 16-SEP-2018 18:01, MANUAL COMPARISON REQUIRED, DATA IS UNCONFIRMED Confirmed by TAMERA JOHNS ([id number]), script editor MIKI PAULINO ([id number]) on 09/23/2018 2:55:50 PM Referred By: Bree Fernandes Confirmed By:TAMERA JOHNS
[2018-09-17 10:28] LABS: Magnesium 2.3 mg/dL (1.6-2.6)
[2018-09-17 10:42] LABS: Erythrocyte Sedimentation Rate 81 mm/hr (0-15)
[2018-09-17] MEDS: TICAGRELOR 90 MG TABLET 180 MG PO (10:45)
[2018-09-17] MEDS: Aspirin 81 MG TAB.CHEW 324 MG PO (10:45)
[2018-09-17] MEDS: 0.9% Normal Saline 1,000 ML 15 ML IV (10:48)
--- NOTE | 2018-09-17 11:44 | CL.D_ITS ---
Patient Name: REJI SPAIN Study Date: 09/17/2018 Performing: Maxi Main MD Ht: 70.07 inches 178 cm : 1980 Wt: 299.83 lbs 136 kg Age: 38 Gender: male BSA: 2.48 PROCEDURE(S) PERFORMED [id number]/COR/LV CLINICAL PROFILE AND INDICATIONS Patient presents with NSTEMI for urgent cardiac cath Indications: ACS <= 24 hrs Heart Failure: None Stress/Imaging Stress Echocardiogram: Yes Result: NegativeStress Echocardiogram: Negative Angina Classification Anginal Classification w/in 2 Weeks: CCS IV CAD Presentations: Unstable angina. Non-STEMI. Symptom onset Date/Time: 09/17/2018 Time Not Avail able Comorbidities/Risk Factors: Hypertension Dyslipidemia Currently On Dialysis CONCLUSIONS Normal coronary arteries Normal LV size, wall motion,and systolic function Left Ventricular Hypertrophy - Moderate RECOMMENDATIONS Reversible distal LCX spasm, corrected with IC NTG. ASA Indefinitely Management as per referring Screen Making Supervisor Start cardizem CD 120mg po daily for coronary vaspasm and tachycardia. Pt probably has significant L VH with symptoms precipitated by tachycardia and dehydration. Manual sheath removal. D/w Lela Tsang. DESCRIPTION OF PROCEDURE The patient arrived to the procedure lab. The risks and benefits of the procedure as well as a full d escription of our services here and current unavailability of surgical backup were fully explained to the patient and/or their significant other prior to the catheterization. The Timeout was completed, verifying the correct patient and procedure. The patient's procedural site was prepped and draped in the usual fashion. Local anesthetic was given subcutaneously to right groin region with Lidocaine 2%. Using a modified Seldinger technique, arterial access was obtained via the right femoral artery, a 4 Fr sheath was inserted Left Coronary Artery selective angiography was performed in multiple views us ing a 4 Fr. JL5 catheter. Left Coronary Artery selective angiography was performed in multiple views using a 4 Fr. JL5 catheter using nitroglycerin IC. Right Coronary Artery selective angiography was th en performed in multiple views using a 4 Fr. 3DRC catheter. Left Ventriculography was performed in GONZALEZ projection using a 4 Fr. Pigtail catheter. LV to AO pullback pressures were then rec orded.The arterial sheath was pulled and manual compression applied until hemostasis is achieved. CORONARY ANGIOGRAPHY DOMINANCE: Left Dominant LEFT HEART ASSESSMENT Normal LV wall motion Normal Left Ventricular systolic function Left Ventricular Hypertrophy LVEDP: 7 mmHg Cardiomyopathy: Hypertrophic LEFT MAIN: Angiographically normal LEFT ANTERIOR DECENDING ARTERY: Angiographically normal CIRCUMFLEX ARTERY: Initial 70% distal stenosis with complete resolution with 200mcg of IC NTG. RIGHT CORONARY ARTERY: Angiographically normal COMPLICATIONS No Complications PROCEDURE MEDICATIONS Versed 1 mg IV Oxygen: 2 L/min via nasal cannula Digoxin 0.25 mg IV 09/17/2018 11:25:25 Nitro 200 mcg IC 09/17/2018 11:20:32 IV Bolus: .9 NaCl 1000 ml total 09/17/2018 11:36:53 IV Fluids: .9 NaCl increased to WO ml/hr 09/17/2018 11:18:36 SUMMARY OF HEMODYNAMIC DATA Time AIR REST ECG 11:08:04 AO 95/62 (74) SA 11:18:10 LV 95/-13, 0 11:26:02 LV 100/-6, 7 11:26:08 LVp 109/-5, 3 11:26:19 AOp 82/45 (57) 11:26:25 Signed By Maxi Main MD On 09/17/2018 11:43:41 AM Maxi Main MD
[2018-09-17] MEDS: SEVELAMER CARBONATE 800 MG TABLET 2400 MG PO ×2 (13:07→18:11)
[2018-09-17] MEDS: 0.9% Normal Saline 1,000 ML 150 ML IV ×2 (13:07→21:00)
--- NOTE | 2018-09-17 13:37 | PCM.PROGNOTE ---
<Lela Tsang - Last Filed: 09/17/18 14:04> Subjective: Patient seen and examined. Complained of increased chest pain this morning. Cardiology consulted and patient quickly underwent cardiac catheterization which did not show any CAD. - Physical Exam General: Alert, Oriented x3, Cooperative HEENT: Atraumatic, PERRLA, EOMI, Normocephalic Neck: Supple, No JVD, Negative Carotid Bruits Lungs: Clear to auscultation, Normal air movement Cardiovascular: Regular Rhythm, Normal S1, Normal S2, No murmurs, Tachycardic Abdomen: Bowel Sounds Present, Soft, Non Tender, Non-Distended, Obese Extremities: No clubbing, No cyanosis, No edema, Capillary Refill Less than 3 Seconds, - - Nonfunctioning AV fistula bilateral upper extremities. Dialysis catheter left groin. Skin: No rashes, No breakdown Musculoskeletal: No Tenderness to Palpation of Joints or Extremities Neurological: Cranial nerves II-XII grossly intact, Neuro grossly intact Psych/Mental Status: Normal Affect, Appropriate Vital Signs Temp Pulse Resp BP Pulse Ox 98 F 112 H 16 105/68 100 09/17/18 13:00 09/17/18 13:00 09/17/18 13:00 09/17/18 13:00 09/17/18 13:00 Oxygen Flow Rate (L/min) 2 Oxygen Delivery Method Nasal Cannula Weight: 299 lb 2.676 oz Body Mass Index (BMI) 42.6 Intake and Output for Last 24 Hours 09/15/18 09/16/18 09/17/18 23:59 23:59 23:59 Intake Total 286.7 / 286.7 2487 / 2487 Balance 286.7 / 286.7 2487 / 2487 Laboratory Tests Past 24 Hrs 09/16/18 09/16/18 09/17/18 17:37 17:37 06:59 WBC 7.6 6.6 RBC 3.87 L 4.05 L Hgb 10.7 L 11.2 L Hct 34.7 L 36.5 L MCV 89.7 90.1 MCH 27.6 27.7 MCHC 30.8 L 30.7 L RDW 16.8 H 16.6 H RDW Differential 54.8 H 54.3 H Plt Count 186 160 MPV 11.0 10.9 Immature Gran % (Auto) 0.100 0.300 Neut % (Auto) 69.1 57.0 Lymph % (Auto) 12.5 L 18.9 L [place] % (Auto) 16.6 H 21.8 H Eos % (Auto) 1.6 1.8 Baso % (Auto) 0.1 0.2 Absolute Neuts (auto) 5.3 3.8 Absolute Lymphs (auto) 0.95 1.25 Total Counted Not Reportable Not Reportable ESR Sodium 138 Potassium 4.6 Chloride 97 L Carbon Dioxide 28.0 Anion Gap 13 BUN 48 H Creatinine 10.30 H* Estim Creat Clear Calc 10.56 Est GFR (MDRD) Af Amer 7 L Est GFR (MDRD) Non-Af 6 L BUN/Creatinine Ratio 4.7 L Glucose 84 Calcium 8.2 L Phosphorus Magnesium Troponin I 0.238 H Albumin 09/17/18 09/17/18 09/17/18 06:59 06:59 06:59 WBC RBC Hgb Hct MCV MCH MCHC RDW RDW Differential Plt Count MPV Immature Gran % (Auto) Neut % (Auto) Lymph % (Auto) [place] % (Auto) Eos % (Auto) Baso % (Auto) Absolute Neuts (auto) Absolute Lymphs (auto) Total Counted ESR Sodium 138 Potassium 5.5 H Chloride 100 Carbon Dioxide 25.0 Anion Gap BUN 56 H Creatinine 11.70 H* Estim Creat Clear Calc 9.01 Est GFR (MDRD) Af Amer 6 L Est GFR (MDRD) Non-Af 5 L BUN/Creatinine Ratio 4.8 L Glucose 81 Calcium 8.2 L Phosphorus 8.5 H Magnesium 2.3 Troponin I 0.157 H Albumin 2.6 L 09/17/18 09/17/18 06:59 10:18 WBC RBC Hgb Hct MCV MCH MCHC RDW RDW Differential Plt Count MPV Immature Gran % (Auto) Neut % (Auto) Lymph % (Auto) [place] % (Auto) Eos % (Auto) Baso % (Auto) Absolute Neuts (auto) Absolute Lymphs (auto) Total Counted ESR 81 H Sodium Potassium Chloride Carbon Dioxide Anion Gap BUN Creatinine Estim Creat Clear Calc Est GFR (MDRD) Af Amer Est GFR (MDRD) Non-Af BUN/Creatinine Ratio Glucose Calcium Phosphorus Magnesium Troponin I 0.103 H Albumin Medical Necessity - Tobacco Use Smoking Status: Never smoker Tobacco Use: Non-smoker Assessment/Plan All Active Problems (Last Reviewed 12/16/18 @ 05:00 by Anuel Abraham MD) HCAP (healthcare-associated pneumonia) (Acute) Chest pain at rest (Acute) Hyperkalemia (Acute) Chronic kidney disease-mineral and bone disorder (Acute) Junctional tachycardia (Acute) Dyspnea (Acute) Clotted dialysis access (Acute) History of blood clots (Acute) Acute viral bronchitis (Acute) Chest pain, musculoskeletal (Acute) Chest pain (Acute) 1. Chest pain with elevated troponin/abnormal EKG-cardiology consulted. Patient underwent cardiac catheterization which showed normal coronary arteries. LCx spasm which corrected with IC NTG. Moderate LVH. CT of chest ordered to rule out PE. Patient started on Cardizem per cardiology for coronary vasospasm and tachycardia. Patient has significant LVH, suspected symptoms precipitated by tachycardia dehydration. Continue aspirin. 2. Hypotension-stable. Suspect secondary to dialysis regimen. Received 1 L IV fluids. Continue to monitor. Dialysis regimen may require adjustment. 3. Tachycardia-started on Cardizem CD 120 mg p.o. daily. Continue to monitor. 4. End-stage renal disease on hemodialysis-nephrology following. Continue scheduled dialysis Friday, Friday, Friday. Trend renal panel. Patient has nonfunctioning bilateral upper extremity fistulas. Left groin catheter. 5. Hypertension-carvedilol on hold given hypotension. 6. Recent influenza B-continue Tamiflu course following dialysis for 4 doses. 7. Anemia of chronic disease- stable. 8. Bone mineral disorder due to end-stage renal disease-continue cinacalcet. DVT prophylaxis-heparin subcu. This patient was seen by YVONNE Randolph under the supervision of Dr. Collins. <Wild Collins - Last Filed: 09/17/18 16:16> - Physical Exam Vital Signs Temp Pulse Resp BP Pulse Ox 98 F 119 H 18 127/55 H 100 09/17/18 15:30 09/17/18 15:30 09/17/18 15:30 09/17/18 15:30 09/17/18 15:30 Oxygen Flow Rate (L/min) 2 Oxygen Delivery Method Room Air Weight: 135.7 kg Body Mass Index (BMI) 42.6 Intake and Output for Last 24 Hours 09/15/18 09/16/18 09/17/18 23:59 23:59 23:59 Intake Total 286.7 / 286.7 2487 / 2487 Balance 286.7 / 286.7 2487 / 2487 Laboratory Tests Past 24 Hrs 09/16/18 09/16/18 09/17/18 17:37 17:37 06:59 WBC 7.6 6.6 RBC 3.87 L 4.05 L Hgb 10.7 L 11.2 L Hct 34.7 L 36.5 L MCV 89.7 90.1 MCH 27.6 27.7 MCHC 30.8 L 30.7 L RDW 16.8 H 16.6 H RDW Differential 54.8 H 54.3 H Plt Count 186 160 MPV 11.0 10.9 Immature Gran % (Auto) 0.100 0.300 Neut % (Auto) 69.1 57.0 Lymph % (Auto) 12.5 L 18.9 L [place] % (Auto) 16.6 H 21.8 H Eos % (Auto) 1.6 1.8 Baso % (Auto) 0.1 0.2 Absolute Neuts (auto) 5.3 3.8 Absolute Lymphs (auto) 0.95 1.25 Total Counted Not Reportable Not Reportable ESR Sodium 138 Potassium 4.6 Chloride 97 L Carbon Dioxide 28.0 Anion Gap 13 BUN 48 H Creatinine 10.30 H* Estim Creat Clear Calc 10.56 Est GFR (MDRD) Af Amer 7 L Est GFR (MDRD) Non-Af 6 L BUN/Creatinine Ratio 4.7 L Glucose 84 Calcium 8.2 L Phosphorus Magnesium Troponin I 0.238 H Albumin 09/17/18 09/17/18 09/17/18 06:59 06:59 06:59 WBC RBC Hgb Hct MCV MCH MCHC RDW RDW Differential Plt Count MPV Immature Gran % (Auto) Neut % (Auto) Lymph % (Auto) [place] % (Auto) Eos % (Auto) Baso % (Auto) Absolute Neuts (auto) Absolute Lymphs (auto) Total Counted ESR Sodium 138 Potassium 5.5 H Chloride 100 Carbon Dioxide 25.0 Anion Gap BUN 56 H Creatinine 11.70 H* Estim Creat Clear Calc 9.01 Est GFR (MDRD) Af Amer 6 L Est GFR (MDRD) Non-Af 5 L BUN/Creatinine Ratio 4.8 L Glucose 81 Calcium 8.2 L Phosphorus 8.5 H Magnesium 2.3 Troponin I 0.157 H Albumin 2.6 L 09/17/18 09/17/18 06:59 10:18 WBC RBC Hgb Hct MCV MCH MCHC RDW RDW Differential Plt Count MPV Immature Gran % (Auto) Neut % (Auto) Lymph % (Auto) [place] % (Auto) Eos % (Auto) Baso % (Auto) Absolute Neuts (auto) Absolute Lymphs (auto) Total Counted ESR 81 H Sodium Potassium Chloride Carbon Dioxide Anion Gap BUN Creatinine Estim Creat Clear Calc Est GFR (MDRD) Af Amer Est GFR (MDRD) Non-Af BUN/Creatinine Ratio Glucose Calcium Phosphorus Magnesium Troponin I 0.103 H Albumin Assessment/Plan This patient was seen in conjunction with YVONNE Randolph . I have independently interviewed and examined the patient and reviewed pertinent historical, laboratory, and other data. Please refer to YVONNE Randolph note for details of this patient's presentation, findings, and recommendations. I have reviewed YVONNE Randolph note and concur with documented findings. In brief, patient is a 38-year-old gentleman with history of end-stage renal disease on hemodialysis who presents with chest pain Physical Examination: GENERAL: cooperative HEENT: Atraumatic; EYES; Anicteric, Normal Conjunctiva NECK; supple, normal thyroid, RESPIRATORY: Diminished to auscultation bilaterally, CARDIOVASCULAR: Regular S1 S2, GI: soft, non-tender, normoactive bowel sounds, : No Renal angle tenderness; EXTREMITIES: no clubbing, no cyanosis. NEURO: Awake; no lateralizing signs. SKIN: No Rash PSYCH; Normal affect Assessment: 1. Atypical chest pain: Cardiology consulted for possible left heart catheterization 2. Hypotension attributed to patient's dialysis; resolved 3. End-stage renal disease on hemodialysis 4. Recent admission for influenza B 5. Essential hypertension 6. Morbid obesity with BMI of 42.9 7. DVT prophylaxis on heparin Recommendations: 1. I have discussed the results of my overview and impressions with the patient 2. Options for management were reviewed Active Medications Acetaminophen (Tylenol) 650 mg PO Q6H PRN PRN PRN Reason: PAIN Last Admin: 09/16/18 22:39 Dose: 650 mg Aspirin (Ecotrin) 81 mg PO DAILY@0800 [facility] Cinacalcet (Sensipar) 60 mg PO MOWEFR [facility] Diltiazem HCl (Cardizem Cd) 120 mg PO DAILY [facility] Heparin Sodium (Beef Lung) (Heparin 500 Unit/5 Ml (100/Ml)) 500 unit IV UD PRN PRN Reason: HEPARIN FLUSH Heparin Sodium (Porcine) (Heparin Na) 5,000 unit SC Q8 [facility] Last Admin: 09/17/18 15:49 Dose: Not Given Heparin Sodium (Porcine) () 2,500 units IV UD PRN PRN Reason: HEPARIN FLUSH Sodium Chloride () 500 mls @ 0 mls/hr IV .Q0M [facility] Last Admin: 09/16/18 17:53 Dose: 500 mls/hr Sodium Chloride () 1,000 mls @ 0 mls/hr IV .Q0M [facility] Last Admin: 09/17/18 10:48 Dose: 15 mls/hr Sodium Chloride () 1,000 mls @ 150 mls/hr IV .Q6H40M [facility] Last Admin: 09/17/18 13:07 Dose: 150 mls/hr Labetalol HCl (Trandate) 5 mg IV X1 PRN PRN Reason: SBP > 160 prior to sheath pull Stop: 09/19/18 11:31 Magnesium Hydroxide (Milk Of Magnesia) 30 ml PO DAILY PRN PRN PRN Reason: Constipation Nutritional Formula (Lactose Free) (Ensure Enlive) 120 ml PO 4X/DAY [facility] Last Admin: 09/17/18 13:08 Dose: 120 ml Oseltamivir Phosphate (Tamiflu) 30 mg PO X1 ONE Stop: 09/18/18 15:01 Oxycodone HCl (Oxyir) 5 - 10 mg PO Q6H PRN PRN PRN Reason: pain Sevelamer Carbonate (Renvela) 2,400 mg PO TIDCM [facility] Last Admin: 09/17/18 13:07 Dose: 2,400 mg Sodium Chloride () 5 - 15 ml IV UD PRN PRN Reason: SALINE FLUSH Sodium Chloride () 10 ml IV UD PRN PRN Reason: Dialysis Catheter Flush Clinical Impression(s) from Imaging Studies Chest X-Ray 09/16/18 17:45 IMPRESSION: Hazy right middle lobe infiltrate, appearing similar to the previous study. Moderately severe thoracic dextroscoliosis. Electronically Signed: Salvador Carrero MD at 18:25 EST , Service support , Code Visit Inpatient E&M: 94890 Subs Hosp L3
--- NOTE | 2018-09-17 14:04 | PN_ITS ---
<Lela Tsang - Last Filed: 09/17/18 14:04> Subjective: Patient seen and examined. Complained of increased chest pain this morning. Cardiology consulted and patient quickly underwent cardiac catheterization which did not show any CAD. - Physical Exam General: Alert, Oriented x3, Cooperative HEENT: Atraumatic, PERRLA, EOMI, Normocephalic Neck: Supple, No JVD, Negative Carotid Bruits Lungs: Clear to auscultation, Normal air movement Cardiovascular: Regular Rhythm, Normal S1, Normal S2, No murmurs, Tachycardic Abdomen: Bowel Sounds Present, Soft, Non Tender, Non-Distended, Obese Extremities: No clubbing, No cyanosis, No edema, Capillary Refill Less than 3 Seconds, - - Nonfunctioning AV fistula bilateral upper extremities. Dialysis catheter left groin. Skin: No rashes, No breakdown Musculoskeletal: No Tenderness to Palpation of Joints or Extremities Neurological: Cranial nerves II-XII grossly intact, Neuro grossly intact Psych/Mental Status: Normal Affect, Appropriate Vital Signs Temp Pulse Resp BP Pulse Ox 98 F 112 H 16 105/68 100 09/17/18 13:00 09/17/18 13:00 09/17/18 13:00 09/17/18 13:00 09/17/18 13:00 Oxygen Flow Rate (L/min) 2 Oxygen Delivery Method Nasal Cannula Weight: 299 lb 2.676 oz Body Mass Index (BMI) 42.6 Intake and Output for Last 24 Hours 09/15/18 09/16/18 09/17/18 23:59 23:59 23:59 Intake Total 286.7 / 286.7 2487 / 2487 Balance 286.7 / 286.7 2487 / 2487 Laboratory Tests Past 24 Hrs 09/16/18 09/16/18 09/17/18 17:37 17:37 06:59 WBC 7.6 6.6 RBC 3.87 L 4.05 L Hgb 10.7 L 11.2 L Hct 34.7 L 36.5 L MCV 89.7 90.1 MCH 27.6 27.7 MCHC 30.8 L 30.7 L RDW 16.8 H 16.6 H RDW Differential 54.8 H 54.3 H Plt Count 186 160 MPV 11.0 10.9 Immature Gran % (Auto) 0.100 0.300 Neut % (Auto) 69.1 57.0 Lymph % (Auto) 12.[address] [place] % (Auto) 16.6 H 21.8 H Eos % (Auto) 1.6 1.8 Baso % (Auto) 0.1 0.2 Absolute Neuts (auto) 5.3 3.8 Absolute Lymphs (auto) 0.95 1.25 Total Counted Not Reportable Not Reportable ESR Sodium 138 Potassium 4.6 Chloride 97 L Carbon Dioxide 28.0 Anion Gap 13 BUN 48 H Creatinine 10.30 H* Estim Creat Clear Calc 10.56 Est GFR (MDRD) Af Amer 7 L Est GFR (MDRD) Non-Af 6 L BUN/Creatinine Ratio 4.7 L Glucose 84 Calcium 8.2 L Phosphorus Magnesium Troponin I 0.238 H Albumin 09/17/18 09/17/18 09/17/18 06:59 06:59 06:59 WBC RBC Hgb Hct MCV MCH MCHC RDW RDW Differential Plt Count MPV Immature Gran % (Auto) Neut % (Auto) Lymph % (Auto) [place] % (Auto) Eos % (Auto) Baso % (Auto) Absolute Neuts (auto) Absolute Lymphs (auto) Total Counted ESR Sodium 138 Potassium 5.5 H Chloride 100 Carbon Dioxide 25.0 Anion Gap BUN 56 H Creatinine 11.70 H* Estim Creat Clear Calc 9.01 Est GFR (MDRD) Af Amer 6 L Est GFR (MDRD) Non-Af 5 L BUN/Creatinine Ratio 4.8 L Glucose 81 Calcium 8.2 L Phosphorus 8.5 H Magnesium 2.3 Troponin I 0.157 H Albumin 2.6 L 09/17/18 09/17/18 06:59 10:18 WBC RBC Hgb Hct MCV MCH MCHC RDW RDW Differential Plt Count MPV Immature Gran % (Auto) Neut % (Auto) Lymph % (Auto) [place] % (Auto) Eos % (Auto) Baso % (Auto) Absolute Neuts (auto) Absolute Lymphs (auto) Total Counted ESR 81 H Sodium Potassium Chloride Carbon Dioxide Anion Gap BUN Creatinine Estim Creat Clear Calc Est GFR (MDRD) Af Amer Est GFR (MDRD) Non-Af BUN/Creatinine Ratio Glucose Calcium Phosphorus Magnesium Troponin I 0.103 H Albumin Medical Necessity - Tobacco Use Smoking Status: Never smoker Tobacco Use: Non-smoker Assessment/Plan All Active Problems (Last Reviewed 12/16/18 @ 05:00 by Anuel Abraham MD) HCAP (healthcare-associated pneumonia) (Acute) Chest pain at rest (Acute) Hyperkalemia (Acute) Chronic kidney disease-mineral and bone disorder (Acute) Junctional tachycardia (Acute) Dyspnea (Acute) Clotted dialysis access (Acute) History of blood clots (Acute) Acute viral bronchitis (Acute) Chest pain, musculoskeletal (Acute) Chest pain (Acute) 1. Chest pain with elevated troponin/abnormal EKG-cardiology consulted. Patient underwent cardiac catheterization which showed normal coronary arteries. LCx spasm which corrected with IC NTG. Moderate LVH. CT of chest ordered to rule out PE. Patient started on Cardizem per cardiology for coronary vasospasm and tachycardia. Patient has significant LVH, suspected symptoms precipitated by tachycardia dehydration. Continue aspirin. 2. Hypotension-stable. Suspect secondary to dialysis regimen. Received 1 L IV fluids. Continue to monitor. Dialysis regimen may require adjustment. 3. Tachycardia-started on Cardizem CD 120 mg p.o. daily. Continue to monitor. 4. End-stage renal disease on hemodialysis-nephrology following. Continue scheduled dialysis Friday, Friday, Friday. Trend renal panel. Patient has nonfunctioning bilateral upper extremity fistulas. Left groin catheter. 5. Hypertension-carvedilol on hold given hypotension. 6. Recent influenza B-continue Tamiflu course following dialysis for 4 doses. 7. Anemia of chronic disease- stable. 8. Bone mineral disorder due to end-stage renal disease-continue cinacalcet. DVT prophylaxis-heparin subcu. This patient was seen by YVONNE Randolph under the supervision of Dr. Collins. <Wild Collins - Last Filed: 09/17/18 16:16> - Physical Exam Vital Signs Temp Pulse Resp BP Pulse Ox 98 F 119 H 18 127/55 H 100 09/17/18 15:30 09/17/18 15:30 09/17/18 15:30 09/17/18 15:30 09/17/18 15:30 Oxygen Flow Rate (L/min) 2 Oxygen Delivery Method Room Air Weight: 135.7 kg Body Mass Index (BMI) 42.6 Intake and Output for Last 24 Hours 09/15/18 09/16/18 09/17/18 23:59 23:59 23:59 Intake Total 286.7 / 286.7 2487 / 2487 Balance 286.7 / 286.7 2487 / 2487 Laboratory Tests Past 24 Hrs 09/16/18 09/16/18 09/17/18 17:37 17:37 06:59 WBC 7.6 6.6 RBC 3.87 L 4.05 L Hgb 10.7 L 11.2 L Hct 34.7 L 36.5 L MCV 89.7 90.1 MCH 27.6 27.7 MCHC 30.8 L 30.7 L RDW 16.8 H 16.6 H RDW Differential 54.8 H 54.3 H Plt Count 186 160 MPV 11.0 10.9 Immature Gran % (Auto) 0.100 0.300 Neut % (Auto) 69.1 57.0 Lymph % (Auto) 12.[address] [place] % (Auto) 16.6 H 21.8 H Eos % (Auto) 1.6 1.8 Baso % (Auto) 0.1 0.2 Absolute Neuts (auto) 5.3 3.8 Absolute Lymphs (auto) 0.95 1.25 Total Counted Not Reportable Not Reportable ESR Sodium 138 Potassium 4.6 Chloride 97 L Carbon Dioxide 28.0 Anion Gap 13 BUN 48 H Creatinine 10.30 H* Estim Creat Clear Calc 10.56 Est GFR (MDRD) Af Amer 7 L Est GFR (MDRD) Non-Af 6 L BUN/Creatinine Ratio 4.7 L Glucose 84 Calcium 8.2 L Phosphorus Magnesium Troponin I 0.238 H Albumin 09/17/18 09/17/18 09/17/18 06:59 06:59 06:59 WBC RBC Hgb Hct MCV MCH MCHC RDW RDW Differential Plt Count MPV Immature Gran % (Auto) Neut % (Auto) Lymph % (Auto) [place] % (Auto) Eos % (Auto) Baso % (Auto) Absolute Neuts (auto) Absolute Lymphs (auto) Total Counted ESR Sodium 138 Potassium 5.5 H Chloride 100 Carbon Dioxide 25.0 Anion Gap BUN 56 H Creatinine 11.70 H* Estim Creat Clear Calc 9.01 Est GFR (MDRD) Af Amer 6 L Est GFR (MDRD) Non-Af 5 L BUN/Creatinine Ratio 4.8 L Glucose 81 Calcium 8.2 L Phosphorus 8.5 H Magnesium 2.3 Troponin I 0.157 H Albumin 2.6 L 09/17/18 09/17/18 06:59 10:18 WBC RBC Hgb Hct MCV MCH MCHC RDW RDW Differential Plt Count MPV Immature Gran % (Auto) Neut % (Auto) Lymph % (Auto) [place] % (Auto) Eos % (Auto) Baso % (Auto) Absolute Neuts (auto) Absolute Lymphs (auto) Total Counted ESR 81 H Sodium Potassium Chloride Carbon Dioxide Anion Gap BUN Creatinine Estim Creat Clear Calc Est GFR (MDRD) Af Amer Est GFR (MDRD) Non-Af BUN/Creatinine Ratio Glucose Calcium Phosphorus Magnesium Troponin I 0.103 H Albumin Assessment/Plan This patient was seen in conjunction with YVONNE Randolph . I have independently interviewed and examined the patient and reviewed pertinent historical, laboratory, and other data. Please refer to YVONNE Randolph note for details of this patient's presentation, findings, and recommendations. I have reviewed YVONNE Randolph note and concur with documented findings. In brief, patient is a 38-year-old gentleman with history of end-stage renal disease on hemodialysis who presents with chest pain Physical Examination: GENERAL: cooperative HEENT: Atraumatic; EYES; Anicteric, Normal Conjunctiva NECK; supple, normal thyroid, RESPIRATORY: Diminished to auscultation bilaterally, CARDIOVASCULAR: Regular S1 S2, GI: soft, non-tender, normoactive bowel sounds, : No Renal angle tenderness; EXTREMITIES: no clubbing, no cyanosis. NEURO: Awake; no lateralizing signs. SKIN: No Rash PSYCH; Normal affect Assessment: 1. Atypical chest pain: Cardiology consulted for possible left heart catheterization 2. Hypotension attributed to patient's dialysis; resolved 3. End-stage renal disease on hemodialysis 4. Recent admission for influenza B 5. Essential hypertension 6. Morbid obesity with BMI of 42.9 7. DVT prophylaxis on heparin Recommendations: 1. I have discussed the results of my overview and impressions with the patient 2. Options for management were reviewed Active Medications Acetaminophen (Tylenol) 650 mg PO Q6H PRN PRN PRN Reason: PAIN Last Admin: 09/16/18 22:39 Dose: 650 mg Aspirin (Ecotrin) 81 mg PO DAILY@0800 [facility] Cinacalcet (Sensipar) 60 mg PO MOWEFR [facility] Diltiazem HCl (Cardizem Cd) 120 mg PO DAILY [facility] Heparin Sodium (Beef Lung) (Heparin 500 Unit/5 Ml (100/Ml)) 500 unit IV UD PRN PRN Reason: HEPARIN FLUSH Heparin Sodium (Porcine) (Heparin Na) 5,000 unit SC Q8 [facility] Last Admin: 09/17/18 15:49 Dose: Not Given Heparin Sodium (Porcine) () 2,500 units IV UD PRN PRN Reason: HEPARIN FLUSH Sodium Chloride () 500 mls @ 0 mls/hr IV .Q0M [facility] Last Admin: 09/16/18 17:53 Dose: 500 mls/hr Sodium Chloride () 1,000 mls @ 0 mls/hr IV .Q0M [facility] Last Admin: 09/17/18 10:48 Dose: 15 mls/hr Sodium Chloride () 1,000 mls @ 150 mls/hr IV .Q6H40M [facility] Last Admin: 09/17/18 13:07 Dose: 150 mls/hr Labetalol HCl (Trandate) 5 mg IV X1 PRN PRN Reason: SBP > 160 prior to sheath pull Stop: 09/19/18 11:31 Magnesium Hydroxide (Milk Of Magnesia) 30 ml PO DAILY PRN PRN PRN Reason: Constipation Nutritional Formula (Lactose Free) (Ensure Enlive) 120 ml PO 4X/DAY [facility] Last Admin: 09/17/18 13:08 Dose: 120 ml Oseltamivir Phosphate (Tamiflu) 30 mg PO X1 ONE Stop: 09/18/18 15:01 Oxycodone HCl (Oxyir) 5 - 10 mg PO Q6H PRN PRN PRN Reason: pain Sevelamer Carbonate (Renvela) 2,400 mg PO TIDCM [facility] Last Admin: 09/17/18 13:07 Dose: 2,400 mg Sodium Chloride () 5 - 15 ml IV UD PRN PRN Reason: SALINE FLUSH Sodium Chloride () 10 ml IV UD PRN PRN Reason: Dialysis Catheter Flush Clinical Impression(s) from Imaging Studies Chest X-Ray 09/16/18 17:45 IMPRESSION: Hazy right middle lobe infiltrate, appearing similar to the previous study. Moderately severe thoracic dextroscoliosis. Electronically Signed: Salvador Carrero MD at 18:25 EST , Service support , Code Visit Inpatient E&M: 25005 Subs Hosp L3
[2018-09-17] MEDS: oxyCODONE 5 MG Tablet PO (19:12)
[2018-09-17] MEDS: dilTIAZem CD 120 MG Capsule PO (19:13)
[2018-09-18] VITALS (16 sets, daily range): BP systolic 94–126; BP diastolic 51–80; PULSE 77–114; RESP 12–20; TEMP 36.3–36.7; O2SAT 95–100
[2018-09-18] MEDS: Cinacalcet HCl 30 MG Tablet 60 MG PO (01:16)
[2018-09-18] MEDS: oxyCODONE 5 MG Tablet PO ×2 (01:16→21:16)
[2018-09-18] MEDS: Heparin Injection (Vial) 5,000 UNIT/ML VIAL 5000 UNIT SC ×2 (06:35→21:02)
--- NOTE | 2018-09-18 07:28 | EKG12_ITS ---
Test Reason : CP Blood Pressure : / mmHG Vent. Rate : 122 BPM Atrial Rate : 042 BPM P-R Int : 000 ms QRS Dur : 072 ms QT Int : 290 ms P-R-T Axes : 000 126 062 degrees QTc Int : 413 ms Poor data quality, interpretation may be adversely affected Accelerated Junctional rhythm with occasional Premature ventricular complexes Right axis deviation Low voltage QRS Cannot rule out Anteroseptal infarct , age undetermined Abnormal ECG When compared with ECG of 17-SEP-2018 09:55, MANUAL COMPARISON REQUIRED, DATA IS UNCONFIRMED Confirmed by TAMERA JOHNS ([id number]), editor city MIKI PAULINO ([id number]) on 09/23/2018 2:56:14 PM Referred By: Bree Fernandes Confirmed By:TAMERA JOHNS
[2018-09-18] MEDS: SEVELAMER CARBONATE 800 MG TABLET 2400 MG PO ×3 (08:20→17:24)
[2018-09-18] MEDS: Aspirin E.C. 81 MG Tablet PO (08:20)
[2018-09-18] MEDS: Acetaminophen 325 MG Tablet 650 MG PO (08:20)
--- NOTE | 2018-09-18 09:44 | PN.CARD_ITS ---
Subjectve: Patient reports much improved chest pain although he did have some overnight mostly with deep inspiration. Catheterization done yesterday showed essentially normal coronary arteries and some vasospasm in his distal left circumflex which resolved completely with IC nitroglycerin. Patient was started on Cardizem CD 120 mg p.o. daily for coronary vasospasm and tachycardia superimposed upon his LVH and hypertrophic cardiomyopathy. Overnight the patient developed sinus rhythm with frequent PACs which evolved into atrial fibrillation with rapid ve ntricular response. Patient is sitting eating his breakfast this morning without complaints. Right groin is clean/dry/intact. His sed rate was found to be 81, possibly consistent with pleuritis/pericarditis. Objective: Vital Signs Temp Pulse Resp BP Pulse Ox 97.9 F 78 18 104/51 L 100 09/18/18 06:31 09/18/18 08:38 09/18/18 08:38 09/18/18 06:31 09/18/18 06:31 Oxygen Flow Rate (L/min) 2 Oxygen Delivery Method Room Air Weight: 303 lb 9.224 oz Body Mass Index (BMI) 42.6 Intake and Output for Last 24 Hours 09/16/18 09/17/18 09/18/18 23:59 23:59 23:59 Intake Total 286.7 / 286.7 4639 / 4639 205 / 205 Balance 286.7 / 286.7 4639 / 4639 205 / 205 General: Awake, Alert, Oriented x 3 HEENT: PERRL, EOMI, Sclera Non Icteric Neck: Supple, Good ROM, No Lymph Node Enlargement Lungs: Clear to auscultation Cardiovascular: Irregular Rhythm, Normal S1, Normal S2, No Murmurs, No Rubs, No Gallops Vascular: No Carotid Bruits, Normal Femoral Pulses, Normal Radial Pulses, Normal Dorsalis Pedal Pulse, Normal Posterior Tibial Pulses Abdomen: Bowel Sounds Present, Soft, Non Tender, No HSM, No Organomegaly Extremities: No Cyanosis, No Clubbing, No edema Neurological: No Focal Motor or Sensory Deficit 09/17/18 06:59: Troponin I 0.157 H 09/17/18 06:59: Magnesium 2.3 09/17/18 10:18: Troponin I 0.103 H Rhythm: EKG: ECHO: Stress Test: Cardiac Cath: PCI: CT Surgery: Holter monitor: EPS: PPM: CXR: Chest CT Scan: Medical Necessity - Tobacco Use Smoking Status: Never smoker Tobacco Use: Non-smoker Assessment/Plan 1. Pericarditis: The patient may have pericarditis given his pleuritic type chest pain, angina, elevated ESR, and now deterioration into atrial fibrillation. I recommended that we start ibuprofen 600 mg p.o. every 6 hours for his pericarditis/pleuritis, as well as continue his Cardizem CD 120 mg p.o. daily for his atrial fibrillation. Hopefully with resolution of his pericarditi s his rhythm will return to normal sinus rhythm. Would not recommend amiodarone at this time. The patient does not improve with NSAIDs, we can consider colchicine, methotrexate, or ultimately prednisone to assist with resolution. The patient is positive for influenza B which may be inducing his pericarditis. 2. Coronary artery disease: The patient had urgent chest pain yesterday with subtle inferior ST segment changes. The patient had distal spasm of his dominant left circumflex artery which was resolved with IC nitroglycerin. Given his hypotension and his flu, he is not a good candidate for imdur, and now given his atrial fibrillation I recommend continuing Cardizem CD 120 mg p.o. daily. If the patient's heart rate is not well controlled or his blood pressure is too low, we will consider IV amiodarone to assist with rate control and possible chemical cardioversion. We will discontinue his Plavix. 3. Atrial fibrillation: Would not recommend anticoagulation at this time as he has normal LV function, and possible pericarditis which may convert to hemopericardium. 4. Thank you very much for the opportunity to participate in the cardiac care of your patient. Code Visit Inpatient E&M: 40197 Subs Hosp L2
--- NOTE | 2018-09-18 09:57 | CASEMGMT ---
Readmission assessment: See assessment completed by Mehran RAMOS CM on 09/15/18. Pt returns for hypotension, near syncope and continues with chest pain, which he had during prior admission on 09/13/18-09/16/18. CM will follow for any further discharge planning/needs. Glo RAMOS CM
[2018-09-18] MEDS: Ibuprofen 600 MG Tablet PO ×3 (10:08→17:25)
--- NOTE | 2018-09-18 10:57 | PCM.PROGNOTE ---
<Lela Tsang - Last Filed: 09/18/18 11:10> Subjective: Patient seen and examined. Denies further chest pain. New onset A. fib overnight. Asymptomatic. Undergoing dialysis. - Physical Exam General: Alert, Oriented x3, Cooperative HEENT: Atraumatic, PERRLA, EOMI, Normocephalic Neck: Supple, No JVD, Negative Carotid Bruits Lungs: Clear to auscultation, Normal air movement Cardiovascular: - - Atrial fibrillation, rate controlled Abdomen: Bowel Sounds Present, Soft, Non Tender, Non-Distended, Obese Extremities: - - No clubbing, No cyanosis, No edema, Capillary Refill Less than 3 Seconds, - - Nonfunctioning AV fistula bilateral upper extremities. Dialysis catheter left groin. Skin: No rashes, No breakdown Musculoskeletal: No Tenderness to Palpation of Joints or Extremities Neurological: Cranial nerves II-XII grossly intact, Neuro grossly intact Psych/Mental Status: Normal Affect, Appropriate Vital Signs Temp Pulse Resp BP Pulse Ox 97.9 F 78 18 104/51 L 100 09/18/18 06:31 09/18/18 08:38 09/18/18 08:38 09/18/18 06:31 09/18/18 06:31 Oxygen Flow Rate (L/min) 2 Oxygen Delivery Method Room Air Weight: 303 lb 9.224 oz Body Mass Index (BMI) 42.6 Intake and Output for Last 24 Hours 09/16/18 09/17/18 09/18/18 23:59 23:59 23:59 Intake Total 286.7 / 286.7 4639 / 4639 205 / 205 Balance 286.7 / 286.7 4639 / 4639 205 / 205 Medical Necessity - Tobacco Use Smoking Status: Never smoker Tobacco Use: Non-smoker Assessment/Plan All Active Problems (Last Reviewed 09/13/18 @ 05:00 by Anuel Abraham MD) HCAP (healthcare-associated pneumonia) (Acute) Chest pain at rest (Acute) Hyperkalemia (Acute) Chronic kidney disease-mineral and bone disorder (Acute) Junctional tachycardia (Acute) Dyspnea (Acute) Clotted dialysis access (Acute) History of blood clots (Acute) Acute viral bronchitis (Acute) Chest pain, musculoskeletal (Acute) Chest pain (Acute) 1. Chest pain with elevated troponin/abnormal EKG-chest pain suspected secondary to pericarditis and coronary vasospasm. Cardiology consulted. Patient underwent cardiac catheterization which showed normal coronary arteries. LCx spasm which corrected with IC NTG. Moderate LVH. CT of chest nondiagnostic for evaluation of pulmonary arteries, limited study due to large body habitus. 1.4 x 1.7 cm pleural-based nodule left lung base, similar to prior study. Patient started on Cardizem per cardiology for coronary vasospasm and tachycardia. Continue aspirin. Patient initiated on ibuprofen 600 mg p.o. every 6 hours for pericarditis. 2. Hypotension-stable. Suspect secondary to dialysis regimen. Continue to monitor. Dialysis regimen may require adjustment. 3. New onset atrial fibrillation-rate controlled. Continue Cardizem. Monitor telemetry. Oral anticoagulation not recommended at this time. If patient does not convert to normal sinus rhythm, will reevaluate. 4. End-stage renal disease on hemodialysis-nephrology following. Continue scheduled dialysis Friday, Friday, Friday. Trend renal panel. Patient has nonfunctioning bilateral upper extremity fistulas. Left groin catheter. 5. Hypertension-carvedilol on hold given hypotension. 6. Recent influenza B-completed Tamiflu course. 7. Anemia of chronic disease- stable. 8. Bone mineral disorder due to end-stage renal disease-continue cinacalcet. 9. Morbid obesity-BMI 42.9 DVT prophylaxis-heparin subcu. This patient was seen by YVONNE Randolph under the supervision of Dr. Collins. <Wild Collins - Last Filed: 09/18/18 12:50> - Physical Exam Vital Signs Temp Pulse Resp BP Pulse Ox 97.9 F 78 18 104/51 L 100 09/18/18 06:31 09/18/18 08:38 09/18/18 08:38 09/18/18 06:31 09/18/18 06:31 Oxygen Flow Rate (L/min) 2 Oxygen Delivery Method Room Air Weight: 137.7 kg Body Mass Index (BMI) 42.6 Intake and Output for Last 24 Hours 09/16/18 09/17/18 09/18/18 23:59 23:59 23:59 Intake Total 286.7 / 286.7 4639 / 4639 205 / 205 Balance 286.7 / 286.7 4639 / 4639 205 / 205 Assessment/Plan This patient was seen in conjunction with YVONNE Randolph . I have independently interviewed and examined the patient and reviewed pertinent historical, laboratory, and other data. Please refer to YVONNE Randolph note for details of this patient's presentation, findings, and recommendations. I have reviewed YVONNE Randolph note and concur with documented findings. In brief, patient is a 38-year-old gentleman with history of end-stage renal disease on hemodialysis who presents with chest pain 09/18/2018: Patient underwent left heart catheterization on 09/17/2018 which found no obstructive lesions to explain for his symptoms it was therefore felt patient symptoms secondary to possible pericarditis. He also went into A. fib with RVR Physical Examination: GENERAL: cooperative HEENT: Atraumatic; EYES; Anicteric, Normal Conjunctiva NECK; supple, normal thyroid, RESPIRATORY: Diminished to auscultation bilaterally, CARDIOVASCULAR: Regular S1 S2, GI: soft, non-tender, normoactive bowel sounds, : No Renal angle tenderness; EXTREMITIES: no clubbing, no cyanosis. NEURO: Awake; no lateralizing signs. SKIN: No Rash PSYCH; Normal affect Assessment: 1. Atypical chest pain: Suspected to be secondary to pericarditis 2. Hypotension attributed to patient's dialysis; resolved 3. New onset paroxysmal A. fib with controlled rate 4. End-stage renal disease on hemodialysis 5. Recent admission for influenza B 6. Essential hypertension 7. Morbid obesity with BMI of 42.9 8. DVT prophylaxis on heparin Recommendations: 1. I have discussed the results of my overview and impressions with the patient 2. Options for management were reviewed Code Visit Inpatient E&M: 10112 [facility] Hosp L3
--- NOTE | 2018-09-18 12:37 | EKG12_ITS ---
Test Reason : Blood Pressure : / mmHG Vent. Rate : 077 BPM Atrial Rate : 104 BPM P-R Int : 000 ms QRS Dur : 068 ms QT Int : 368 ms P-R-T Axes : 065 103 090 degrees QTc Int : 416 ms Sinus tachycardia with 2nd degree A-V block (Mobitz I) with Premature ventricular complexes or Fusion complexes Rightward axis Pulmonary disease pattern Abnormal ECG When compared with ECG of 17-SEP-2018 09:55, MANUAL COMPARISON REQUIRED, DATA IS UNCONFIRMED Confirmed by TAMERA JOHNS ([id number]), graphics editor MIKI PAULINO ([id number]) on 09/23/2018 2:57:08 PM Referred By: Bree Fernandes Confirmed By:TAMERA JHONS
--- NOTE | 2018-09-18 16:49 | PCM.CONS.R ---
Consultation - Renal 09/18/18 PCP/ Referring MD: Requesting physician: Hospital Medicine Service Primary care physician: Pawel Banda MD Reason for Consultation:: ESRD - History of Present Illness History of Present Illness: The patient is a 38 year old M who is admitted on 09/16/18 because, during dialysis, patient states he became lightheaded and dizzy and was noted that his blood pressure dropped to the 60s systolic. The pt was just discharged on the same day. His last admit was treatment for influenza B infection. The pt underwent LHC for chest pain yesterday which did not reveal coronary lesion. He denies SOB, nausea or edema. Chest pain has subsided. Pt normally dilayzes at [facility] on MWF schedule. He was dialyzed earlier today. - Allergies Allergies: Allergies No Known Allergies Allergy (Verified 09/13/18 00:38) - Current Medications Current Medications: Current Medications Acetaminophen (Tylenol) 650 mg PO Q6H PRN PRN PRN Reason: PAIN Last Admin: 09/18/18 08:20 Dose: 650 mg Aspirin (Ecotrin) 81 mg PO DAILY@0800 [facility] Last Admin: 09/18/18 08:20 Dose: 81 mg Cinacalcet (Sensipar) 60 mg PO MOWEFR [facility] Last Admin: 09/18/18 01:16 Dose: 60 mg Diltiazem HCl (Cardizem Cd) 120 mg PO DAILY [facility] Last Admin: 09/17/18 19:13 Dose: 120 mg Heparin Sodium (Beef Lung) (Heparin 500 Unit/5 Ml (100/Ml)) 500 unit IV UD PRN PRN Reason: HEPARIN FLUSH Heparin Sodium (Porcine) (Heparin Na) 5,000 unit SC Q8 [facility] Last Admin: 09/18/18 16:28 Dose: Not Given Heparin Sodium (Porcine) () 2,500 units IV UD PRN PRN Reason: HEPARIN FLUSH Ibuprofen (Motrin) 600 mg PO Q6 [facility] Last Admin: 09/18/18 13:12 Dose: 600 mg Labetalol HCl (Trandate) 5 mg IV X1 PRN PRN Reason: SBP > 160 prior to sheath pull Stop: 09/19/18 11:31 Magnesium Hydroxide (Milk Of Magnesia) 30 ml PO DAILY PRN PRN PRN Reason: Constipation Nutritional Formula (Lactose Free) (Ensure Enlive) 120 ml PO 4X/DAY [facility] Last Admin: 09/18/18 13:14 Dose: 120 ml Oseltamivir Phosphate (Tamiflu) 30 mg PO X1 ONE Stop: 09/18/18 15:01 Oxycodone HCl (Oxyir) 5 - 10 mg PO Q6H PRN PRN PRN Reason: pain Last Admin: 09/18/18 01:16 Dose: 10 mg Sevelamer Carbonate (Renvela) 2,400 mg PO TIDCM [facility] Last Admin: 09/18/18 13:13 Dose: 2,400 mg Sodium Chloride () 5 - 15 ml IV UD PRN PRN Reason: SALINE FLUSH Sodium Chloride () 10 ml IV UD PRN PRN Reason: Dialysis Catheter Flush - Past Medical History Past Medical History (Chronic Problems): Chronic Problems (Last Reviewed 09/13/18 @ 05:00 by Anuel Abraham MD) Sleep apnea (Chronic) Lightheadedness (Chronic) Chronic pelvic pain in male (Chronic) Pelvic mass (Chronic) Hematuria (Chronic) Hearing loss (Chronic) in both ears Anemia of chronic disorder (Chronic) History of bacterial endocarditis (Chronic) Hypertension (Chronic) ESRD (end stage renal disease) (Chronic) Due to hypertension, On hemodialysis, TTS, followed by Dr. Goncalves Morbidly obese (Chronic) Sleep apnea (Chronic) 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 due to renal insufficiency (Chronic) - Past Surgical History Surgical History: herniorrhaphy, - - Social History Smoking Status: Never smoker - Family History Maternal History Items: No pertinent history Review of Systems Constitutional: Denies: Chills, Fever, Weight Change Eyes: Denies: Blurred vision HEENT: Denies: Head Aches, Sinus Congestion, Sinus Drainage Cardiovascular: Reports: Chest Pain. Denies: Edema, Orthopnea, Paroxysmal Noc. Dyspnea Respiratory: Reports: Cough. Denies: Shortness of Breath, Sputum production Gastrointestinal: Denies: Abdominal Pain, Nausea, Vomiting Genitourinary: Denies: Dysuria Musculoskeletal: Denies: Joint Pain, Joint Tenderness Skin: Denies: Rash, Wounds Neurological: Denies: Numbness, Tingling, Focal weakness Psychiatric: Denies: Anxiety, Depression, Homicidal Ideations, Suicidal Ideations - Physical Exam General: Alert, Oriented x3 HEENT: Atraumatic, PERRLA, EOMI Oral: Moist Mucosa Neck: Supple, No JVD Lungs: Clear to auscultation Cardiovascular: Normal S1, Normal S2, No murmurs Abdomen: Bowel Sounds Present, Soft, Non Tender, Obese Extremities: No clubbing, No cyanosis, No edema Skin: No rashes Musculoskeletal: No Tenderness to Palpation of Joints or Extremities Neurological: Neuro grossly intact Vital Signs Temp Pulse Resp BP Pulse Ox 97.6 F L 98 18 100/61 100 09/18/18 16:42 09/18/18 16:42 09/18/18 16:42 09/18/18 16:42 09/18/18 14:30 Oxygen Flow Rate (L/min) 2 Oxygen Delivery Method Room Air Weight: 137.7 kg Body Mass Index (BMI) 42.6 Intake and Output for Last 24 Hours 09/16/18 09/17/18 09/18/18 23:59 23:59 23:59 Intake Total 286.7 / 286.7 4639 / 4639 835 / 835 Output Total 1300 / 1300 Balance 286.7 / 286.7 4639 / 4639 -465 / -465 Assessment/Plan All Active Problems (Last Reviewed 09/13/18 @ 05:00 by Anuel Abraham MD) HCAP (healthcare-associated pneumonia) (Acute) Chest pain at rest (Acute) Hyperkalemia (Acute) Chronic kidney disease-mineral and bone disorder (Acute) Junctional tachycardia (Acute) Dyspnea (Acute) Clotted dialysis access (Acute) History of blood clots (Acute) Acute viral bronchitis (Acute) Chest pain, musculoskeletal (Acute) Chest pain (Acute) 1. ESRD. HD MWF at [facility] as outpt. Will keep on MWF dialysis while admitted. He was dialyzed earlier today. Tolerated well. 2. Hyperkalemia. Dialyzed earlier today with 2K. Recheck K in am. 3. Anemia. Continue ANABELLA with dialysis. 4. HTN. BP is controlled. Continue current BP medications. 5. Chest pain. No CAD on [facility]. Medical treatment for possible coronary vasospasm as per primary service.
--- NOTE | 2018-09-18 16:53 | CON.PCM_ITS ---
Consultation - Renal 09/18/18 PCP/ Referring MD: Requesting physician: Hospital Medicine Service Primary care physician: Pawel Banda MD Reason for Consultation:: ESRD - History of Present Illness History of Present Illness: The patient is a 38 year old M who is admitted on 09/16/18 because, during dialysis, patient states he became lightheaded and dizzy and was noted that his blood pressure dropped to the 60s systolic. The pt was just discharged on the same day. His last admit was treatment for influenza B infection. The pt underwent LHC for chest pain yesterday which did not reveal coronary lesion. He denies SOB, nausea or edema. Chest pain has subsided. Pt normally dilayzes at [facility] on MWF schedule. He was dialyzed earlier today. - Allergies Allergies: Allergies No Known Allergies Allergy (Verified 09/13/18 00:38) - Current Medications Current Medications: Current Medications Acetaminophen (Tylenol) 650 mg PO Q6H PRN PRN PRN Reason: PAIN Last Admin: 09/18/18 08:20 Dose: 650 mg Aspirin (Ecotrin) 81 mg PO DAILY@0800 [facility] Last Admin: 09/18/18 08:20 Dose: 81 mg Cinacalcet (Sensipar) 60 mg PO MOWEFR [facility] Last Admin: 09/18/18 01:16 Dose: 60 mg Diltiazem HCl (Cardizem Cd) 120 mg PO DAILY [facility] Last Admin: 09/17/18 19:13 Dose: 120 mg Heparin Sodium (Beef Lung) (Heparin 500 Unit/5 Ml (100/Ml)) 500 unit IV UD PRN PRN Reason: HEPARIN FLUSH Heparin Sodium (Porcine) (Heparin Na) 5,000 unit SC Q8 [facility] Last Admin: 09/18/18 16:28 Dose: Not Given Heparin Sodium (Porcine) () 2,500 units IV UD PRN PRN Reason: HEPARIN FLUSH Ibuprofen (Motrin) 600 mg PO Q6 [facility] Last Admin: 09/18/18 13:12 Dose: 600 mg Labetalol HCl (Trandate) 5 mg IV X1 PRN PRN Reason: SBP > 160 prior to sheath pull Stop: 09/19/18 11:31 Magnesium Hydroxide (Milk Of Magnesia) 30 ml PO DAILY PRN PRN PRN Reason: Constipation Nutritional Formula (Lactose Free) (Ensure Enlive) 120 ml PO 4X/DAY [facility] Last Admin: 09/18/18 13:14 Dose: 120 ml Oseltamivir Phosphate (Tamiflu) 30 mg PO X1 ONE Stop: 09/18/18 15:01 Oxycodone HCl (Oxyir) 5 - 10 mg PO Q6H PRN PRN PRN Reason: pain Last Admin: 09/18/18 01:16 Dose: 10 mg Sevelamer Carbonate (Renvela) 2,400 mg PO TIDCM [facility] Last Admin: 09/18/18 13:13 Dose: 2,400 mg Sodium Chloride () 5 - 15 ml IV UD PRN PRN Reason: SALINE FLUSH Sodium Chloride () 10 ml IV UD PRN PRN Reason: Dialysis Catheter Flush - Past Medical History Past Medical History (Chronic Problems): Chronic Problems (Last Reviewed 09/13/18 @ 05:00 by Anuel Abraham MD) Sleep apnea (Chronic) Lightheadedness (Chronic) Chronic pelvic pain in male (Chronic) Pelvic mass (Chronic) Hematuria (Chronic) Hearing loss (Chronic) in both ears Anemia of chronic disorder (Chronic) History of bacterial endocarditis (Chronic) Hypertension (Chronic) ESRD (end stage renal disease) (Chronic) Due to hypertension, On hemodialysis, TTS, followed by Dr. Goncalves Morbidly obese (Chronic) Sleep apnea (Chronic) 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 due to renal insufficiency (Chronic) - Past Surgical History Surgical History: herniorrhaphy, - - Social History Smoking Status: Never smoker - Family History Maternal History Items: No pertinent history Review of Systems Constitutional: Denies: Chills, Fever, Weight Change Eyes: Denies: Blurred vision HEENT: Denies: Head Aches, Sinus Congestion, Sinus Drainage Cardiovascular: Reports: Chest Pain. Denies: Edema, Orthopnea, Paroxysmal Noc. Dyspnea Respiratory: Reports: Cough. Denies: Shortness of Breath, Sputum production Gastrointestinal: Denies: Abdominal Pain, Nausea, Vomiting Genitourinary: Denies: Dysuria Musculoskeletal: Denies: Joint Pain, Joint Tenderness Skin: Denies: Rash, Wounds Neurological: Denies: Numbness, Tingling, Focal weakness Psychiatric: Denies: Anxiety, Depression, Homicidal Ideations, Suicidal Ideations - Physical Exam General: Alert, Oriented x3 HEENT: Atraumatic, PERRLA, EOMI Oral: Moist Mucosa Neck: Supple, No JVD Lungs: Clear to auscultation Cardiovascular: Normal S1, Normal S2, No murmurs Abdomen: Bowel Sounds Present, Soft, Non Tender, Obese Extremities: No clubbing, No cyanosis, No edema Skin: No rashes Musculoskeletal: No Tenderness to Palpation of Joints or Extremities Neurological: Neuro grossly intact Vital Signs Temp Pulse Resp BP Pulse Ox 97.6 F L 98 18 100/61 100 09/18/18 16:42 09/18/18 16:42 09/18/18 16:42 09/18/18 16:42 09/18/18 14:30 Oxygen Flow Rate (L/min) 2 Oxygen Delivery Method Room Air Weight: 137.7 kg Body Mass Index (BMI) 42.6 Intake and Output for Last 24 Hours 09/16/18 09/17/18 09/18/18 23:59 23:59 23:59 Intake Total 286.7 / 286.7 4639 / 4639 835 / 835 Output Total 1300 / 1300 Balance 286.7 / 286.7 4639 / 4639 -465 / -465 Assessment/Plan All Active Problems (Last Reviewed 09/13/18 @ 05:00 by Anuel Abraham MD) HCAP (healthcare-associated pneumonia) (Acute) Chest pain at rest (Acute) Hyperkalemia (Acute) Chronic kidney disease-mineral and bone disorder (Acute) Junctional tachycardia (Acute) Dyspnea (Acute) Clotted dialysis access (Acute) History of blood clots (Acute) Acute viral bronchitis (Acute) Chest pain, musculoskeletal (Acute) Chest pain (Acute) 1. ESRD. HD MWF at [facility] as outpt. Will keep on MWF dialysis while admitted. He was dialyzed earlier today. Tolerated well. 2. Hyperkalemia. Dialyzed earlier today with 2K. Recheck K in am. 3. Anemia. Continue ANABELLA with dialysis. 4. HTN. BP is controlled. Continue current BP medications. 5. Chest pain. No CAD on [facility]. Medical treatment for possible coronary vasospasm as per primary service.
[2018-09-18] MEDS: Oseltamivir Phosphate 30 MG Capsule PO (17:23)
[2018-09-18] MEDS: dilTIAZem CD 120 MG Capsule PO (17:24)
[2018-09-19] VITALS (7 sets, daily range): BP systolic 91–113; BP diastolic 34–57; PULSE 90–106; RESP 15; TEMP 36.3–36.6; O2SAT 98–99
[2018-09-19] MEDS: Ibuprofen 600 MG Tablet PO ×2 (00:48→06:20)
[2018-09-19] MEDS: Heparin Injection (Vial) 5,000 UNIT/ML VIAL 5000 UNIT SC (06:20)
[2018-09-19 06:53] LABS: Albumin, Serum 2.6 g/dL (3.2-5.0); BUN 49 mg/dL (7-18); BUN/Creat Ratio 4.6 RATIO (10-20); Calcium,Total 7.9 mg/dL (8.5-10.1); Chloride 100 mmol/L (98-107); EST Glomerular Filtration Rate 6 mL/min (>60); Est Glom Filt Rate - Afr Amer 7 mL/min (>60); Estimated Creatinine Clearance 9.95 ml/min; Glucose 92 mg/dL (74-106); Phosphorus 7.8 mg/dL (2.5-4.9); Potassium 4.7 mmol/L (3.5-5.1); Sodium Level 137 mmol/L (136-145)
[2018-09-19] MEDS: Aspirin E.C. 81 MG Tablet PO (08:38)
[2018-09-19] MEDS: SEVELAMER CARBONATE 800 MG TABLET 2400 MG PO (08:38)
[2018-09-19] MEDS: dilTIAZem CD 120 MG Capsule PO (08:38)
--- NOTE | 2018-09-19 09:54 | PCM.PN.CARD ---
Subjectve: Patient clinically improving. Laying down flat without difficulty. Telemetry shows normal sinus rhythm with first-degree AV block and PACs. EKG confirmed normal sinus rhythm with first-degree AV block. No further chest pain. Objective: Vital Signs Temp Pulse Resp BP Pulse Ox 97.3 F L 96 15 112/57 L 99 09/19/18 06:32 09/19/18 07:12 09/19/18 06:32 09/19/18 06:32 09/19/18 06:32 Oxygen Flow Rate (L/min) 2 Oxygen Delivery Method Room Air Weight: 304 lb 10.861 oz Body Mass Index (BMI) 42.6 Intake and Output for Last 24 Hours 09/17/18 09/18/18 09/19/18 23:59 23:59 23:59 Intake Total 4639 / 4639 1075 / 1075 400 / 400 Output Total 1300 / 1300 Balance 4639 / 4639 -225 / -225 400 / 400 General: Awake, Alert, Oriented x 3 HEENT: PERRL, EOMI, Sclera Non Icteric Neck: Supple, Good ROM, No Lymph Node Enlargement Lungs: Clear to auscultation Cardiovascular: Regular Rhythm, Normal S1, Normal S2, No Murmurs, No Rubs, No Gallops Vascular: No Carotid Bruits, Normal Femoral Pulses, Normal Radial Pulses, Normal Dorsalis Pedal Pulse, Normal Posterior Tibial Pulses Abdomen: Bowel Sounds Present, Soft, Non Tender, No HSM, No Organomegaly Extremities: No Cyanosis, No Clubbing, No edema Neurological: No Focal Motor or Sensory Deficit 09/19/18 05:53: Sodium 137, Potassium 4.7, Chloride 100, Carbon Dioxide 25.0, BUN 49 H, Creatinine 10.60 H*, Est GFR (MDRD) Af Amer 7 L, Est GFR (MDRD) Non-Af 6 L, BUN/Creatinine Ratio 4.6 L, Glucose 92, Calcium 7.9 L, Phosphorus 7.8 H Rhythm: EKG: ECHO: Stress Test: Cardiac Cath: PCI: CT Surgery: Holter monitor: EPS: PPM: CXR: Chest CT Scan: Medical Necessity - Tobacco Use Smoking Status: Never smoker Tobacco Use: Non-smoker Assessment/Plan 1. Pericarditis: The patient may have pericarditis given his pleuritic type chest pain, angina, elevated ESR, and now deterioration into atrial fibrillation. I recommended that we start ibuprofen 600 mg p.o. every 8 hours for his pericarditis/pleuritis, as well as continue his Cardizem CD 120 mg p.o. daily for his atrial fibrillation. Patient successfully converted back to normal sinus rhythm and first-degree AV block. Would not recommend amiodarone at this time. The patient does not improve with NSAIDs, we can consider colchicine, methotrexate, or ultimately prednisone to assist with resolution. The patient is positive for influenza B which may be inducing his pericarditis. 2. Coronary artery disease: The patient had urgent chest pain several days ago with subtle inferior ST segment changes. The patient had distal spasm of his dominant left circumflex artery which was resolved with IC nitroglycerin. Given his hypotension and his flu, he is not a good candidate for imdur, and now given his paroxysmal atrial fibrillation I recommend continuing Cardizem CD 120 mg p.o. daily. If the patient's heart rate is not well controlled or his blood pressure is too low, we will consider IV amiodarone to assist with rate control and possible chemical cardioversion. We will discontinue his Plavix. 3. Atrial fibrillation: Would not recommend anticoagulation at this time as he has normal LV function, and possible pericarditis which may convert to hemopericardium. 4. Thank you very much for the opportunity to participate in the cardiac care of your patient. We will sign off. Please call with any questions. Code Visit Inpatient E&M: 26396 Subs Hosp L2
--- NOTE | 2018-09-19 11:21 | DCINST_ITS ---
You will use the following diet at home:: Renal (restricted protein/sodium) Discharge Activity: Return to Normal Activity Call your doctor if you observe: Shortness of breath, Dizziness, Fainting spells, Chest pain Allergies/Adverse Reactions: Allergies No Known Allergies Allergy (Verified 09/13/18 00:38) Medications to take at Discharge cinacalcet 60 mg tablet 60 mg PO MOWEFR 10/10/17 Ferric Citrate [Auryxia] 3 tab PO TIDCM 05/15/18 Oxycodone [Oxyir] 5 - 10 mg PO Q6H PRN PRN 7 Days #40 tab 09/16/18 Aspirin E.C. [Ecotrin] 81 mg PO DAILY@0800 #30 tablet 09/19/18 Diltiazem CD [Cardizem CD] 120 mg PO DAILY #30 capsule 09/19/18 Ibuprofen [Motrin] 600 mg PO Q8 #42 tablet 09/19/18 The following prescriptions were given: Aspirin E.C. [Ecotrin] 81 mg PO DAILY@0800 #30 tablet Diltiazem CD [Cardizem CD] 120 mg PO DAILY #30 capsule Ibuprofen [Motrin] 600 mg PO Q8 #42 tablet Primary Care Physician: Pawel Banda MD [Primary Care Provider] - Please follow up with your Primary Care Physician in: 1 Week Test Results: Test results from this visit will be discussed in further detail at your follow- up appointment, if applicable. Please Follow Up With: Maxi Main MD When: 1-2 Weeks Please Follow Up With: Dialysis/Nephrology When: As scheduled Proposed Discharge Date: 09/19/18
--- NOTE | 2018-09-19 11:32 | DS.PCM_ITS ---
<Lela Tsang - Last Filed: 09/19/18 11:32> Discharge Date and Diagnosis Date of Admission: 09/13/18 Date of Discharge: 09/19/18 - Primary Discharge Diagnosis 1. Chest pain with elevated troponin/abnormal EKG suspected secondary to pericarditis and coronary vasospasm, ACS ruled out 2. Hypotension, secondary to volume depletion as a result of dialysis regimen 3. New onset atrial fibrillation 4. End-stage renal disease on hemodialysis 5. Hypertension 6. Recent influenza B 7. Anemia of chronic disease 8. Bone mineral disorder due to end-stage renal disease 9. Morbid obesity - Secondary Discharge Diagnosis Chronic Problems (Last Reviewed 09/13/18 @ 05:00 by Anuel Abraham MD) Sleep apnea (Chronic) Lightheadedness (Chronic) Chronic pelvic pain in male (Chronic) Pelvic mass (Chronic) Hematuria (Chronic) Hearing loss (Chronic) in both ears Anemia of chronic disorder (Chronic) History of bacterial endocarditis (Chronic) Hypertension (Chronic) ESRD (end stage renal disease) (Chronic) Due to hypertension, On hemodialysis, TTS, followed by Dr. Goncalves Morbidly obese (Chronic) Sleep apnea (Chronic) 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 due to renal insufficiency (Chronic) Hospital Course and Treatment Imaging Results: Diagnostic Data Chest X-Ray 09/16/18 17:45 IMPRESSION: Hazy right middle lobe infiltrate, appearing similar to the previous study. Moderately severe thoracic dextroscoliosis. Electronically Signed: Salvador Carrero MD at 18:25 EST , Service support , Chest CTA 09/17/18 10:25 IMPRESSION: Limited study secondary to large body habitus and suboptimal contrast bolus timing. The study is essentially nondiagnostic for evaluation of the pulmonary arteries. There are extensive dilated venous collaterals throughout the superficial soft tissues. There is a 1.4 x 1.7 cm pleural-based nodule in the posteromedial left lung base with associated adjacent pleural thickening, appearing similar to the previous study. Electronically Signed: Salvador Carrero MD at 19:18 EST , Service support , Dr. Main- Cardiology Dr. Goncalves- Nephrology Operations: None Procedures: Cardiac catheterization, Dialysis Summary of Care Provided: The patient is a 38 year old M admitted 09/16/2018 due to hypotension during dialysis. 1. Chest pain with elevated troponin/abnormal EKG-chest pain suspected secondary to pericarditis and coronary vasospasm. Cardiology consulted during admission. Patient underwent cardiac catheterization which showed normal coronary arteries. LCx spasm which corrected with IC NTG. Moderate LVH. CT of chest nondiagnostic for evaluation of pulmonary arteries, limited study due to large body habitus. 1.4 x 1.7 cm pleural-based nodule left lung base, similar to prior study. Patient started on Cardizem per cardiology for coronary vasospasm and tachycardia. Continue aspirin. Patient initiated on ibuprofen 600 mg p.o. every 6 hours for pericarditis. Will continue cardizem, aspirin at discharge. Continue ibuprofen X2 weeks. Follow up with Dr. Main in 1-2 Weeks. Follow up with PCP in 1 week. 2. Hypotension-Improved. Suspect secondary to volume depletion as a result of dialysis regimen. 3. New onset atrial fibrillation- Continue Cardizem. Oral anticoagulation not recommended at this time. Rate controlled. Follow-up with cardiology in 1-2 weeks. 4. End-stage renal disease on hemodialysis-nephrology following. Continue scheduled dialysis Friday, Friday, Friday. Patient has nonfunctioning bilateral upper extremity fistulas. Left groin catheter. Follow-up with nephrology as scheduled. 5. Hypertension-carvedilol discontinued. Started on Cardizem as noted above. 6. Recent influenza B-completed Tamiflu course. 7. Anemia of chronic disease- stable. 8. Bone mineral disorder due to end-stage renal disease-continue cinacalcet. 9. Morbid obesity-BMI 42.9 General: Alert, Oriented x3, Cooperative HEENT: Atraumatic, PERRLA, EOMI, Normocephalic Neck: Supple, No JVD, Negative Carotid Bruits Lungs: Clear to auscultation, Normal air movement Cardiovascular: Normal rate, normal rhythm, no murmur Abdomen: Bowel Sounds Present, Soft, Non Tender, Non-Distended, Obese Extremities: - - No clubbing, No cyanosis, No edema, Capillary Refill Less than 3 Seconds, Nonfunctioning AV fistula bilateral upper extremities. Dialysis catheter left groin. Skin: No rashes, No breakdown Musculoskeletal: No Tenderness to Palpation of Joints or Extremities Neurological: Cranial nerves II-XII grossly intact, Neuro grossly intact Psych/Mental Status: Normal Affect, Appropriate Patient seen and examined prior to discharge. Physical assessment as noted above. Patient is stable for discharge with follow up recommendations as noted above. This patient was seen by YVONNE Randolph under the supervision of Dr. Collins. - Physical Exam Vital Signs Temp Pulse Resp BP Pulse Ox 97.3 F L 96 15 112/57 L 99 09/19/18 06:32 09/19/18 07:12 09/19/18 06:32 09/19/18 06:32 09/19/18 06:32 Oxygen Flow Rate (L/min) 2 Oxygen Delivery Method Room Air Weight: 304 lb 10.861 oz Body Mass Index (BMI) 42.6 Intake and Output for Last 24 Hours 09/17/18 09/18/18 09/19/18 23:59 23:59 23:59 Intake Total 4639 / 4639 1075 / 1075 400 / 400 Output Total 1300 / 1300 Balance 4639 / 4639 -225 / -225 400 / 400 Laboratory Tests Past 24 Hrs 09/19/18 05:53 Sodium 137 Potassium 4.7 Chloride 100 Carbon Dioxide 25.0 BUN 49 H Creatinine 10.60 H* Estim Creat Clear Calc 9.95 Est GFR (MDRD) Af Amer 7 L Est GFR (MDRD) Non-Af 6 L BUN/Creatinine Ratio 4.6 L Glucose 92 Calcium 7.9 L Phosphorus 7.8 H Albumin 2.6 L Discharge Diet: Renal Diet Discharge Activity: Return to Normal Activity Call your doctor if you observe: Shortness of breath, Dizziness, Fainting spells, Chest pain Home Medications: Medications to take at Discharge cinacalcet 60 mg tablet 60 mg PO MOWEFR 10/10/17 Ferric Citrate [Auryxia] 3 tab PO TIDCM 05/15/18 Oxycodone [Oxyir] 5 - 10 mg PO Q6H PRN PRN 7 Days #40 tab 09/16/18 Aspirin E.C. [Ecotrin] 81 mg PO DAILY@0800 #30 tablet 09/19/18 Diltiazem CD [Cardizem CD] 120 mg PO DAILY #30 capsule 09/19/18 Ibuprofen [Motrin] 600 mg PO Q8 #42 tablet 09/19/18 Following Prescrptions Were Given to Patient: Aspirin E.C. [Ecotrin] 81 mg PO DAILY@0800 #30 tablet Diltiazem CD [Cardizem CD] 120 mg PO DAILY #30 capsule Ibuprofen [Motrin] 600 mg PO Q8 #42 tablet Primary Care Physician: Pawel Banda MD [Primary Care Provider] - Please follow up with your Primary Care Physician in: 1 Week Please Follow Up With: Maxi Main MD When: 1-2 Weeks Please Follow Up With: Dialysis/Nephrology When: As scheduled Disposition: Home Minutes spent on discharge:: 35 Patient Condition:: Stable Medical Necessity - Tobacco Use Smoking Status: Never smoker Tobacco Use: Non-smoker Meaningful Use Info Meaningful Use Diagnoses (Choose all that apply): None applicable <Wild Collins - Last Filed: 09/19/18 11:51> Discharge Date and Diagnosis - Secondary Discharge Diagnosis Chronic Problems (Last Reviewed 09/13/18 @ 05:00 by Anuel Abraham MD) Sleep apnea (Chronic) Lightheadedness (Chronic) Chronic pelvic pain in male (Chronic) Pelvic mass (Chronic) Hematuria (Chronic) Hearing loss (Chronic) in both ears Anemia of chronic disorder (Chronic) History of bacterial endocarditis (Chronic) Hypertension (Chronic) ESRD (end stage renal disease) (Chronic) Due to hypertension, On hemodialysis, TTS, followed by Dr. Goncalves Morbidly obese (Chronic) Sleep apnea (Chronic) 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 due to renal insufficiency (Chronic) Hospital Course and Treatment Summary of Care Provided: This patient was seen in conjunction with YVONNE Randolph . I have independently interviewed and examined the patient and reviewed pertinent historical, laboratory, and other data. Please refer to YVONNE Randolph note for details of this patient's presentation, findings, and recommendations. I have reviewed VYONNE Randolph note and concur with documented findings. In brief, patient is a 38-year-old gentleman with history of end-stage renal disease on hemodialysis who presents with chest pain Assessment: 1. Atypical chest pain: Suspected to be secondary to pericarditis 2. Hypotension attributed to patient's dialysis; resolved 3. New onset paroxysmal A. fib with controlled rate 4. End-stage renal disease on hemodialysis 5. Recent admission for influenza B 6. Essential hypertension 7. Morbid obesity with BMI of 42.9 8. DVT prophylaxis on heparin Hospital course: As elicited abide by Lela Tsang NARCOTICS INVESTIGATOR?C - Physical Exam Vital Signs Temp Pulse Resp BP Pulse Ox 97.3 F L 96 15 112/57 L 99 09/19/18 06:32 09/19/18 07:12 09/19/18 06:32 09/19/18 06:32 09/19/18 06:32 Oxygen Flow Rate (L/min) 2 Oxygen Delivery Method Room Air Weight: 138.2 kg Body Mass Index (BMI) 42.6 Intake and Output for Last 24 Hours 09/17/18 09/18/18 09/19/18 23:59 23:59 23:59 Intake Total 4639 / 4639 1075 / 1075 400 / 400 Output Total 1300 / 1300 Balance 4639 / 4639 -225 / -225 400 / 400 Laboratory Tests Past 24 Hrs 09/19/18 05:53 Sodium 137 Potassium 4.7 Chloride 100 Carbon Dioxide 25.0 BUN 49 H Creatinine 10.60 H* Estim Creat Clear Calc 9.95 Est GFR (MDRD) Af Amer 7 L Est GFR (MDRD) Non-Af 6 L BUN/Creatinine Ratio 4.6 L Glucose 92 Calcium 7.9 L Phosphorus 7.8 H Albumin 2.6 L Code Visit Inpatient E&M: 10688 Disch Hosp
--- NOTE | 2018-09-21 07:04 | PCM.HP.STD ---
History of Present Illness Date of Admission: 09/16/18 Chief Complaint: hypotension during dialysis Late entry H& P note for admission on 09/16/18 Patient is a 38-year-old male with past medical history of ESRD on hemodialysis on Wednesdays, YEIMY, hyperparathyroidism due to renal insufficiency, anemia of chronic disease, hypertension and YEIMY. He was admitted to the hospital via the ED on 09/16/2018 with a complaint of hypotension during dialysis. Patient had been discharged just a few hours prior from [facility] after he was admitted and managed for influenza B infection and also chest pain which was thought to be due to clotted fistula in the left upper extremity. He was subsequently discharged to go for dialysis at his outpatient center. During dialysis, patient states he became lightheaded and dizzy and was noted that his blood pressure dropped to the 60s systolic. Dialysis was therefore aborted and he was rushed to the ED. His usual dry weight is 128 kg but he states his weight is at time he was leaving the dialysis center was 134 kg. Vitals in the ED showed BP of 81/36, and labs showed Cr of 10.30, and initial troponin was 0.238. He is being admitted to be managed for hypotension. Past Medical History Past Medical History (Chronic Problems): Chronic Problems (Last Reviewed 09/13/18 @ 05:00 by Anuel Abraham MD) Sleep apnea (Chronic) Lightheadedness (Chronic) Chronic pelvic pain in male (Chronic) Pelvic mass (Chronic) Hematuria (Chronic) Hearing loss (Chronic) in both ears Anemia of chronic disorder (Chronic) History of bacterial endocarditis (Chronic) Hypertension (Chronic) ESRD (end stage renal disease) (Chronic) Due to hypertension, On hemodialysis, TTS, followed by Dr. Goncalves Morbidly obese (Chronic) Sleep apnea (Chronic) 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 due to renal insufficiency (Chronic) Medical History: Medical History (Last Reviewed 09/13/18 @ 05:00 by Anuel Abraham MD) Sleep apnea (Chronic) G47.30 History of blood clots (Acute) Z86.718 fistula developed a clot and had to be surgically removed Hearing loss (Chronic) H91.90 in both ears Allergies No Known Allergies Allergy (Verified 09/13/18 00:38) Home Medications: Ambulatory Orders Medication Instructions Recorded cinacalcet 60 mg tablet 60 mg PO MOWEFR 10/10/17 Ferric Citrate [Auryxia] 3 tab PO TIDCM 05/15/18 Oxycodone [Oxyir] 5 - 10 mg PO Q6H PRN PRN 7 Days 09/16/18 #40 tab Aspirin E.C. [Ecotrin] 81 mg PO DAILY@0800 #30 tablet 09/19/18 Diltiazem CD [Cardizem CD] 120 mg PO DAILY #30 capsule 09/19/18 Ibuprofen [Motrin] 600 mg PO Q8 #42 tablet 09/19/18 Surgical History: herniorrhaphy, - Lives: Spouse/ Significant Other Smoking Status: Never smoker Tobacco Use: Non-smoker - *Family History Maternal History Items: No pertinent history Review of Systems Constitutional: Reports: Malaise, Weakness, Fatigue. Denies: Chills, Fever, Weight Change Eyes: Denies: Blurred vision HEENT: Denies: Head Aches, Sinus Congestion, Sinus Drainage Cardiovascular: Reports: Chest Pain. Denies: Heaviness, Light Headedness Respiratory: Denies: Cough, Shortness of breath at rest, Sputum production Gastrointestinal: Denies: Abdominal Pain, Nausea, Vomiting Genitourinary: Denies: Dysuria Musculoskeletal: Denies: Joint Pain, Joint Tenderness Skin: Denies: Rash, Wounds Neurological: Denies: Numbness, Tingling, Focal weakness Psychiatric: Denies: Anxiety, Depression, Homicidal Ideations, Suicidal Ideations Hematologic/ Lymphatic: Denies: Easy Bruising, Easy Bleeding VTE Information - Inpt Only VTE Present on Admission: No VTE Pharm Prophylaxis ordered?: Yes Assessment/Plan All Active Problems (Last Reviewed 09/13/18 @ 05:00 by Anuel Abraham MD) HCAP (healthcare-associated pneumonia) (Acute) Chest pain at rest (Acute) Hyperkalemia (Acute) Chronic kidney disease-mineral and bone disorder (Acute) Junctional tachycardia (Acute) Dyspnea (Acute) Clotted dialysis access (Acute) History of blood clots (Acute) Acute viral bronchitis (Acute) Chest pain, musculoskeletal (Acute) Chest pain (Acute) Vitals/I&O's: Vital Signs Temp Pulse Resp BP Pulse Ox 97.8 F 78 15 98/64 95 09/16/18 17:06 09/16/18 17:06 09/16/18 17:06 09/16/18 17:06 09/16/18 18:06 Oxygen Delivery Method Room Air Weight: 282 lb Body Mass Index (BMI) 39.3 General: Alert, Oriented x3, Cooperative, No apparent distress HEENT: Atraumatic, PERRLA, EOMI, Normocephalic Oral: Moist Mucosa Neck: Supple, No JVD, Negative Carotid Bruits Lungs: - - mildly decreased breath sounds in lower lung page bilaterally Cardiovascular: Regular rate, Regular Rhythm, Normal S1, Normal S2, No murmurs Abdomen: Bowel Sounds Present, Soft, Non Tender, Non-Distended, No Hepato-splenomegaly Extremities: No clubbing, No cyanosis, No edema, Capillary Refill Less than 3 Seconds, - - nonfunctioning AV fistulae in UEs bilaterally. dialysis catheter in left groin Skin: No rashes, No breakdown Musculoskeletal: No Tenderness to Palpation of Joints or Extremities Lymphatic: No Cervical, Supraclavicular, or Inguinal Adenopathy Neurological: Cranial nerves II-XII grossly intact, Neuro grossly intact, Motor Exam 5/5 strength throughout Psych/Mental Status: Normal Affect, Appropriate, Alert and oriented to time, place, person, mood and affect Assessment and plan 38 y/o presenting with a complaitn of hypotension during dialysis session. 1. Hypotension due to prossible dialysis dysequilibrium was discharged earlier today and went to dialysis center. Became hypotensive during dialysis, with BP going down to 60s systolic, according to patient didnt get down to dry weight, with weight being ~ 124kg on dmission; says dry weight is 128kg BP came up to 80s and 90s sytolic after he received bolus of IVF hydate with IVF consult nephrology for dialysis. 2. ESRD on hemodialysis: As under 1. Dialysis catheter is in left groin. 3. Chest pain: This is chronic. Was thought to be due to clotted fistula in left upper extremity during last admission. Will monitor. On oxycodone. 4. Clotted left upper extremity fistula: Scheduled for declotting to be done. Follow-up with lime sludge kiln operator and vascular surgeon on outpatient basis. 5. Hypertension: On carvedilol. 6. Influenza B infection: Was discharged today and given a prescription for oseltamivir. Will continue. 7. Bone mineral disorder due to ESRD: On cinacalcet 8. Anemia of chronic disease: Likely due to ESRD. On further considered. DVT prophylaxis: Heparin Code Visit OBSV E&M: 78224 Initial observation care L3
--- NOTE | 2018-09-21 07:08 | HP.PCM_ITS ---
History of Present Illness Date of Admission: 09/16/18 Chief Complaint: hypotension during dialysis Late entry H& P note for admission on 09/16/18 Patient is a 38-year-old male with past medical history of ESRD on hemodialysis on Wednesdays, YEIMY, hyperparathyroidism due to renal insufficiency, anemia of chronic disease, hypertension and YEIMY. He was admitted to the hospital via the ED on 09/16/2018 with a complaint of hypotension during dialysis. Patient had been discharged just a few hours prior from [facility] after he was admitted and managed for influenza B infection and also chest pain which was thought to be due to clotted fistula in the left upper extremity. He was subsequently discharged to go for dialysis at his outpatient center. During dialysis, patient states he became lightheaded and dizzy and was noted that his blood pressure dropped to the 60s systolic. Dialysis was therefore aborted and he was rushed to the ED. His usual dry weight is 128 kg but he states his weight is at time he was leaving the dialysis center was 134 kg. Vitals in the ED showed BP of 81/36, and labs showed Cr of 10.30, and initial troponin was 0.238. He is being admitted to be managed for hypotension. Past Medical History Past Medical History (Chronic Problems): Chronic Problems (Last Reviewed 09/13/18 @ 05:00 by Anuel Abraham MD) Sleep apnea (Chronic) Lightheadedness (Chronic) Chronic pelvic pain in male (Chronic) Pelvic mass (Chronic) Hematuria (Chronic) Hearing loss (Chronic) in both ears Anemia of chronic disorder (Chronic) History of bacterial endocarditis (Chronic) Hypertension (Chronic) ESRD (end stage renal disease) (Chronic) Due to hypertension, On hemodialysis, TTS, followed by Dr. Goncalves Morbidly obese (Chronic) Sleep apnea (Chronic) 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 due to renal insufficiency (Chronic) Medical History: Medical History (Last Reviewed 09/13/18 @ 05:00 by Anuel Abraham MD) Sleep apnea (Chronic) G47.30 History of blood clots (Acute) Z86.718 fistula developed a clot and had to be surgically removed Hearing loss (Chronic) H91.90 in both ears Allergies No Known Allergies Allergy (Verified 09/13/18 00:38) Home Medications: Ambulatory Orders Medication Instructions Recorded cinacalcet 60 mg tablet 60 mg PO MOWEFR 10/10/17 Ferric Citrate [Auryxia] 3 tab PO TIDCM 05/15/18 Oxycodone [Oxyir] 5 - 10 mg PO Q6H PRN PRN 7 Days 09/16/18 #40 tab Aspirin E.C. [Ecotrin] 81 mg PO DAILY@0800 #30 tablet 09/19/18 Diltiazem CD [Cardizem CD] 120 mg PO DAILY #30 capsule 09/19/18 Ibuprofen [Motrin] 600 mg PO Q8 #42 tablet 09/19/18 Surgical History: herniorrhaphy, - Lives: Spouse/ Significant Other Smoking Status: Never smoker Tobacco Use: Non-smoker - *Family History Maternal History Items: No pertinent history Review of Systems Constitutional: Reports: Malaise, Weakness, Fatigue. Denies: Chills, Fever, Weight Change Eyes: Denies: Blurred vision HEENT: Denies: Head Aches, Sinus Congestion, Sinus Drainage Cardiovascular: Reports: Chest Pain. Denies: Heaviness, Light Headedness Respiratory: Denies: Cough, Shortness of breath at rest, Sputum production Gastrointestinal: Denies: Abdominal Pain, Nausea, Vomiting Genitourinary: Denies: Dysuria Musculoskeletal: Denies: Joint Pain, Joint Tenderness Skin: Denies: Rash, Wounds Neurological: Denies: Numbness, Tingling, Focal weakness Psychiatric: Denies: Anxiety, Depression, Homicidal Ideations, Suicidal Ideations Hematologic/ Lymphatic: Denies: Easy Bruising, Easy Bleeding VTE Information - Inpt Only VTE Present on Admission: No VTE Pharm Prophylaxis ordered?: Yes Assessment/Plan All Active Problems (Last Reviewed 09/13/18 @ 05:00 by Anuel Abraham MD) HCAP (healthcare-associated pneumonia) (Acute) Chest pain at rest (Acute) Hyperkalemia (Acute) Chronic kidney disease-mineral and bone disorder (Acute) Junctional tachycardia (Acute) Dyspnea (Acute) Clotted dialysis access (Acute) History of blood clots (Acute) Acute viral bronchitis (Acute) Chest pain, musculoskeletal (Acute) Chest pain (Acute) Vitals/I&O's: Vital Signs Temp Pulse Resp BP Pulse Ox 97.8 F 78 15 98/64 95 09/16/18 17:06 09/16/18 17:06 09/16/18 17:06 09/16/18 17:06 09/16/18 18:06 Oxygen Delivery Method Room Air Weight: 282 lb Body Mass Index (BMI) 39.3 General: Alert, Oriented x3, Cooperative, No apparent distress HEENT: Atraumatic, PERRLA, EOMI, Normocephalic Oral: Moist Mucosa Neck: Supple, No JVD, Negative Carotid Bruits Lungs: - - mildly decreased breath sounds in lower lung page bilaterally Cardiovascular: Regular rate, Regular Rhythm, Normal S1, Normal S2, No murmurs Abdomen: Bowel Sounds Present, Soft, Non Tender, Non-Distended, No Hepato- splenomegaly Extremities: No clubbing, No cyanosis, No edema, Capillary Refill Less than 3 Seconds, - - nonfunctioning AV fistulae in UEs bilaterally. dialysis catheter in left groin Skin: No rashes, No breakdown Musculoskeletal: No Tenderness to Palpation of Joints or Extremities Lymphatic: No Cervical, Supraclavicular, or Inguinal Adenopathy Neurological: Cranial nerves II-XII grossly intact, Neuro grossly intact, Motor Exam 5/5 strength throughout Psych/Mental Status: Normal Affect, Appropriate, Alert and oriented to time, place, person, mood and affect Assessment and plan 38 y/o presenting with a complaitn of hypotension during dialysis session. 1. Hypotension due to prossible dialysis dysequilibrium * was discharged earlier today and went to dialysis center. Became hypotensive during dialysis, with BP going down to 60s systolic, according to patient * didnt get down to dry weight, with weight being ~ 124kg on dmission; says dry weight is 128kg * BP came up to 80s and 90s sytolic after he received bolus of IVF * hydate with IVF * consult nephrology for dialysis. * 2. ESRD on hemodialysis: As under 1. Dialysis catheter is in left groin. 3. Chest pain: This is chronic. Was thought to be due to clotted fistula in left upper extremity during last admission. Will monitor. On oxycodone. 4. Clotted left upper extremity fistula: Scheduled for declotting to be done. Follow-up with mortar man and vascular surgeon on outpatient basis. 5. Hypertension: On carvedilol. 6. Influenza B infection: Was discharged today and given a prescription for oseltamivir. Will continue. 7. Bone mineral disorder due to ESRD: On cinacalcet 8. Anemia of chronic disease: Likely due to ESRD. On further considered. DVT prophylaxis: Heparin Code Visit OBSV E&M: 80367 Initial observation care L3
--- NOTE | 2018-09-21 13:14 | CASEMGMT ---
RN CM Discharge Follow-up Phone Call: CELINA: Josie Strata: 4 Call Date: 09/21/18 Discharge Date: 09/19/18 Time of Call: 1312 Duration: 1 min Admitting Diagnosis: Hypotension, near syncope RN SOHEILA attempted to complete follow-up phone call after recent hospitalization. No answer, voice message left with return contact information.
== END 2018-09-19 13:38 | disposition home or self-care (01) | DRG 286 ==
LOC: ED 18:41 → PCU 20:15
PROVIDERS: Internal Medicine Nephrology; Nurse Practitioner Family; Admitting Provider Student in an Organized Health Care Education/Training Program; Emergency Provider Emergency Medicine; Family Provider Internal Medicine; PCP Internal Medicine; Referring Provider Student in an Organized Health Care Education/Training Program; Visit Provider Internal Medicine
DX: I31.9 Disease of pericardium, unspecified (principal); N18.6 End stage renal disease; I20.1 Angina pectoris with documented spasm; Z68.41 Body mass index [BMI] 40.0-44.9, adult; I12.0 Hypertensive chronic kidney disease with stage 5 chronic kidney disease or end stage renal disease; N25.81 Secondary hyperparathyroidism of renal origin; D63.8 Anemia in other chronic diseases classified elsewhere; E66.01 Morbid (severe) obesity due to excess calories; Z99.2 Dependence on renal dialysis; J10.1 Influenza due to other identified influenza virus with other respiratory manifestations; I95.3 Hypotension of hemodialysis; I48.0 Paroxysmal atrial fibrillation; E87.5 Hyperkalemia; H91.93 Unspecified hearing loss, bilateral
CPT/HCPCS: 36415; 71045; 71275; 80048; 80069; 83735; 84484; 85025; 85652; 90937; 93005; 93458; 94660; 97802; 99152; 99153; 99285; J7030; J7040; Q9967; A4216; C1769; C1894; G0257

== ENCOUNTER 2018-11-25 20:55 | Emergency (ER) | payer MEDICARE, MEDICAID, SELFPAY ==
[2018-10-16 13:34] VITALS: BMI 42.5
[2018-11-25 20:56] VITALS: BP 89/55; PULSE 63; RESP 15; TEMP 37; O2SAT 99; BMI 41.7
--- NOTE | 2018-11-25 21:22 | RAD_ITS ---
STUDY: X-RAY - LEFT SHOULDER REASON FOR EXAM: Male, 38 years old. Shoulder pain TECHNIQUE: 4 view(s) of the shoulder. COMPARISON: CT 08/11/2018 FINDINGS: There is a Hill-Sachs deformity of the humeral head. There is inferior dislocation of the humeral head. There is soft tissue edema. 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
[2018-11-25] MEDS: Ketorolac 15 MG/ML Vial IV (21:51)
[2018-11-25] MEDS: Morphine 4 MG/ML Syringe IV ×2 (21:51→23:21)
[2018-11-25] MEDS: Ondansetron 4 MG/2 ML Vial IV (21:51)
[2018-11-25 22:19] LABS: Absolute Lymphocyte Count 1.26 X10^3/ul (0.83-4.51); Absolute Neutrophil Count 3.3 X10^3/uL (2.0-7.7); Basophil# 0.03 X10^3/uL; Basophil% 0.5 % (0-1); Eosinophil# 0.14 X10^3/uL; Eosinophils% 2.4 % (0-5); Hematocrit 38.6 % (40-54); Hemoglobin 11.9 g/dl (13.0-16.5); Lymphocyte # 1.26 X10^3/ul (4.0); Lymphocyte % 21.9 % (19-41); Mean Corp Hgb Conc 30.8 g/gl (32-36); Mean Corpuscular Hgb 28.6 pg (27.0-32.0); Mean Corpuscular Volume 92.8 fL (80-94); Monocyte# 1.02 X10^3/uL; Monocyte% 17.7 % (0-10); Neutrophil # 3.29 X10^3/uL (2.7-7.7); Neutrophil % 57.2 % (47-70); Platelet Count 231 K/mm3 (150-450); RBC Distribution Width CV 15.9 % (11.6-14.6); RBC Distribution Width SD 53.9 fl (35.1-43.9); Red Blood Count 4.16 M/mm3 (4.6-6.2); White Blood Count 5.8 K/mm3 (4.4-11.0)
[2018-11-25 22:21] LABS: POSITIVE COUNT NO; POSITIVE DIFFERENTIAL NO; POSITIVE MORPHOLOGY NO
[2018-11-25 22:35] LABS: Erythrocyte Sedimentation Rate > 130 mm/hr (0-15)
[2018-11-25 22:39] LABS: ALB/GLOB Ratio 0.6 RATIO (0.9-2.4); AST(SGOT) 17 U/L (15-37); Alanine Aminotransfer ALT/SGPT 12 U/L (16-61); Albumin, Serum 3.5 g/dL (3.2-5.0); Alkaline Phosphatase 83 U/L (45-117); Anion Gap 15 (5-15); BUN 65 mg/dL (7-18); BUN/Creat Ratio 5.2 RATIO (10-20); Calcium,Total 8.5 mg/dL (8.5-10.1); Chloride 95 mmol/L (98-107); EST Glomerular Filtration Rate 5 mL/min (>60); Est Glom Filt Rate - Afr Amer 6 mL/min (>60); Estimated Creatinine Clearance 8.44 ml/min; Globulin 6.1 g/dL (2.2-4.2); Glucose 96 mg/dL (74-106); Potassium 5.8 mmol/L (3.5-5.1); Protein, Total 9.6 g/dL (6.4-8.2); Sodium Level 136 mmol/L (136-145)
[2018-11-25 22:42] VITALS: BP 108/66; PULSE 103; RESP 16; O2SAT 97
--- NOTE | 2018-11-25 22:48 | ED.VISSUMM ---
- ER Visit Summary Date of Service: 11/25/18 Chief Complaint: Shoulder pain for 1-2 months History of Present Illness: The patient is a 38 M who presents because he is not able to use his left upper extremity. He reports shoulder pain for 1-2 months. He denies fever, chills night sweats. Denies weight gain or weight loss. He denies IV drug use. He denies recent infection. He is on hemodialysis. He denies cardiac or respiratory symptoms. He denies nausea, vomiting diarrhea. He does not make urine. He denies any skin lesions. He denies history of trauma. He denies myalgias or arthralgias or joint swelling. 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 He has pain the patient over the proximal humerus and the proximal humerus does not feel normal/or is not in proper position. Attempt to internally and externally rotate causes significant pain. Abduction past 20 degrees causes significant pain. Axillary, median, radial and ulnar function intact. Biceps, brachialis and triceps reflex are 1+. Radial pulses palpable. There is no cervical lymphadenopathy. There is no supraclavicular lymphadenopathy. He has minimal tenderness in the axilla difficult to assess nodes. Heart is regular without murmur, gallop or rub her lungs are clear to auscultation. No skin lesions are noted. Neuro exam is nonfocal. Test Results: Three-view x-ray of the shoulder was obtained which reveals subluxation of the proximal humerus with abnormal appearance of the proximal humerus and abnormal appearance of the glenoid fossa. On my review of CAT scan chest September 17, 2018 no significant abdomen allergies noted. After interpreting the x-ray a CBC, BMP, sed rate and CRP were obtained. White count is normal with a hemoglobin 11.6. ESR is greater than 130. CRP is 66.3. BUN and creatinine are 65 and 12.5. Potassium is slightly elevated. Emergency Department Course and Treatment: X-ray was obtained to evaluate shoulder for posterior dislocation. Since there is destruction of bone and no prior images CAT scan was reviewed. Labs were ordered and spoke with Dr. Noah Christy regarding patient. He reviewed CT from September 17, 2018 and per his review there is abnormality of the posterior proximal humerus with flattening and abnormality of the glenoid fossa. Treatment Plan: Sling, urgent orthopedic follow-up and opiate analgesia Disposition: Discharge to home Impression: Left shoulder pain with destruction of bone initial encounter Evaluate for infection (see pyogenic arthritis with osteomyelitis versus malignancy) This note was generated with [employer] dictation software. It may contain incorrect words, spelling, and punctuation that were not noted in review of the chart prior to signing ED Disposition - Plan for ED Patient: Disposition: Home or Assisted Living Prescriptions: Hydrocodone Bitart/Apap 5-325 [[place] 5MG-325MG] 1 tablet PO Q6H PRN PRN 3 Days #10 tablet PRN Reason: Pain Referrals: Pawel Banda MD [Primary Care Provider] - Darwin Christy MD [STAFF PHYSICIAN] - As soon as possible Additional Instructions: Call Dr. Noah Christy's office tomorrow morning for appointment later this week. He will make arrangement for outpatient testing and further pain management
[2018-11-25 23:17] VITALS: BP 108/66; PULSE 103; RESP 16; O2SAT 98
[2018-11-25] MEDS: HYDROcodone Bitartrate/Apap 5/325 Tablet PO (23:18)
== END 2018-11-25 23:44 | disposition home or self-care (01) ==
PROVIDERS: Emergency Provider Emergency Medicine; Family Provider Internal Medicine; PCP Internal Medicine
DX: M25.512 Pain in left shoulder (principal); M89.8X1 Other specified disorders of bone, shoulder; Z99.2 Dependence on renal dialysis; E66.9 Obesity, unspecified; G47.33 Obstructive sleep apnea (adult) (pediatric)
CPT/HCPCS: 36415; 73030; 80053; 85025; 85652; 86140; 96374; 96375; 96376; 99284; A4216; J2405

== ENCOUNTER 2018-12-02 14:26 | Inpatient (IN) | payer MEDICARE, MEDICAID, SELFPAY ==
[2018-12-02] VITALS (20 sets, daily range): BP systolic 92–192; BP diastolic 33–163; PULSE 74–148; RESP 13–25; TEMP 36.6–36.8; O2SAT 97–100; BMI 40.6; BMI 42.3; BMI 42.4
--- NOTE | 2018-12-02 14:32 | RAD_ITS ---
STUDY: X-RAY CHEST REASON FOR EXAM: Male, 38 years old. Chest pain. Tachycardia. TECHNIQUE: Single AP portable view of the chest. COMPARISON: Comparison is made with prior study dated September 16, 2018. FINDINGS: There is evidence of vascular congestion and mild degree of CHF. There is no demonstrated pleural abnormality. There is borderline cardiomegaly. Normal mediastinum and michael. Normal visualized pulmonary arteries. Normal visualized aortic arch and descending thoracic aorta. There is a dextroscoliosis of the thoracic spine. Normal visualized ribs, clavicles, and shoulders. There is no demonstrated abnormality of the visualized soft tissue structures of the upper abdomen. RAD/Chest 1 View (Portable) IMPRESSION: Basilar congestion and mild degree of CHF. Borderline cardiomegaly. Dextroscoliosis. Electronically Signed: Ed Vega, at 15:32 EST , Service support ,
--- NOTE | 2018-12-02 14:32 | EKG12_ITS ---
Test Reason : CP Blood Pressure : / mmHG Vent. Rate : 198 BPM Atrial Rate : 147 BPM P-R Int : 000 ms QRS Dur : 120 ms QT Int : 264 ms P-R-T Axes : 000 182 039 degrees QTc Int : 479 ms Atrial flutter with 2:1 block with frequent Premature ventricular complexes Anteroseptal infarct , age undetermined Abnormal ECG Confirmed by SALMA STAHL, JACOBY ([id number]), book or script editor MIKI PAULINO ([id number]) on 12/08/2018 8:55:12 AM Referred By: MORIAH Confirmed By:JACOBY MARSH MD
--- NOTE | 2018-12-02 15:23 | ED.RN ---
DR. MARES AWARE OF CRITICAL CREATINE 13.47
[2018-12-02 15:24] LABS: Anion Gap 13 (5-15); BUN 66 mg/dL (7-18); BUN/Creat Ratio 4.9 RATIO (10-20); Calcium,Total 8.1 mg/dL (8.5-10.1); Chloride 95 mmol/L (98-107); EST Glomerular Filtration Rate 5 mL/min (>60); Est Glom Filt Rate - Afr Amer 5 mL/min (>60); Estimated Creatinine Clearance 8.12 ml/min; Glucose 112 mg/dL (74-106); Potassium 5.2 mmol/L (3.5-5.1); Sodium Level 133 mmol/L (136-145)
[2018-12-02 15:57] LABS: Absolute Lymphocyte Count 1.28 X10^3/ul (0.83-4.51); Basophil# 0.03 X10^3/uL; Basophil% 0.5 % (0-1); Eosinophil# 0.25 X10^3/uL; Eosinophils% 4.4 % (0-5); Hematocrit 38.6 % (40-54); Hemoglobin 11.6 g/dl (13.0-16.5); Lymphocyte # 1.28 X10^3/ul (4.0); Lymphocyte % 22.4 % (19-41); Mean Corp Hgb Conc 30.1 g/gl (32-36); Mean Corpuscular Hgb 28.3 pg (27.0-32.0); Mean Corpuscular Volume 94.1 fL (80-94); Mean Platelet Vol. 11.1 fl (6.2-12.0); Monocyte% 19.3 % (0-10); Neutrophil # 3.04 X10^3/uL (2.7-7.7); Neutrophil % 53.2 % (47-70); Platelet Count 192 K/mm3 (150-450); RBC Distribution Width CV 15.1 % (11.6-14.6); RBC Distribution Width SD 50.4 fl (35.1-43.9); White Blood Count 5.7 K/mm3 (4.4-11.0)
[2018-12-02 16:02] LABS: POSITIVE COUNT NO; POSITIVE DIFFERENTIAL NO; POSITIVE MORPHOLOGY NO
[2018-12-02] MEDS: dilTIAZem 25 MG/5 ML Vial 20 MG IV BOLUS (16:02)
--- NOTE | 2018-12-02 17:44 | NURSING ---
DR WANG IN ER
--- NOTE | 2018-12-02 17:58 | ED.VISSUMM ---
- ER Visit Summary Date of Service: 12/02/18 Chief Complaint: High heart rate History of Present Illness: The patient is a 38 M with a high heart rate intermittently since August. He reports a consistently high heart rate over the last 2 weeks. He is having chest pains today and so he came for an evaluation. Patient has a history of end-stage renal disease and attends dialysis Friday and Friday. He says he is compliant. He had a cardiac workup in August at this hospital and also in September at [facility]. He has no history of coronary disease. He did have some stenosis of his left circumflex in the past that resolved with nitro. No stents. He had an echo at [facility] in September which showed no evidence of thrombus. He has been on apixaban since. He is also on metoprolol and Cardizem. He says he is compliant. Physical Examination: Afebrile. Heart rate 148. Otherwise vitals unremarkable. Alert and oriented. No acute distress. Lungs clear. Abdomen soft and nontender. Test Results: EKG shows what appears to be a flutter. Hemoglobin 11.6. Potassium 5.2, BUN 66, creatinine 13.4. Troponin normal. Chest x-ray shows cardiomegaly and CHF. Emergency Department Course and Treatment: Patient was placed on a monitor. IV access obtained. He was treated with Cardizem. His heart rate improved to around 100 but remained in what appeared to be atrial fibrillation. His rate increased from there and range from around 100-140. Patient was discussed with Dr. Chong. It appears that the patient has been compliant with his anticoagulation. If this is the case, he advised synchronized cardioversion. The patient was reluctant and would like to try medical therapy. I advised him that he may still need cardioversion or even an ablation in the future. He voiced understanding. I started the patient on amiodarone bolus and then amiodarone drip 1 mg/min under the direction of Dr. Chong. The hospitalist was notified and he will admit. Treatment Plan: As above Disposition: Admission Impression: 1. Atrial fibrillation 2. Chest pain This note was generated with [employer] software. It may contain incorrect words, spelling, and punctuation that were not noted in review of the chart prior to signing ED Disposition - Plan for ED Patient: Referrals: Pawel Banda MD [Primary Care Provider] -
--- NOTE | 2018-12-02 18:01 | ED.DCSUM_ITS ---
- ER Visit Summary Date of Service: 12/02/18 Chief Complaint: High heart rate History of Present Illness: The patient is a 38 M with a high heart rate intermittently since August. He reports a consistently high heart rate over the last 2 weeks. He is having chest pains today and so he came for an evalua tion. Patient has a history of end-stage renal disease and attends dialysis Friday and Friday. He says he is compliant. He had a cardiac workup in August at this hospital and also in September at [facility]. He has no history of coronary disease. He did have some stenosis of his left circumflex in the past that resolved with nitro. No stents. He had an echo at [facility] in September which showed no evidence of thrombus. He has been on apixaban since. He is also on metoprolol and Cardizem. He says he is compliant. Physical Examination: Afebrile. Heart rate 148. Otherwise vitals unremarkable. Alert and oriented. No acute distress. Lungs clear. Abdomen soft and nontender. Test Results: EKG shows what appears to be a flutter. Hemoglobin 11.6. Potassium 5.2, BUN 66, creatinine 13.4. Troponin normal. Chest x-ray shows cardiomegaly and CHF. Emergency Department Course and Treatment: Patient was placed on a monitor. IV access obtained. He was treated with Cardizem. His heart rate improved to around 100 but remained in what appeared to be atrial fibrillation. His rate increased from there and range from around 100-140. Patient was discussed with Dr. Chong. It appears that the patient has been compliant with his anticoagulation. If this is the case, he advised synchronized cardioversion. The patient was reluctant and would like to try medical therapy. I advised him that he may still need cardioversion or even an ablation in the future. He voiced understanding. I started the patient on amiodarone bolus and then amiodarone drip 1 mg/min under the direction of Dr. Chong. The hospitalist was notified and he will admit. Treatment Plan: As above Disposition: Admission Impression: 1. Atrial fibrillation 2. Chest pain This note was generated with [employer] software. It may contain incorrect words, spelling, and punctuation that were not noted in review of the chart prior to signing ED Disposition - Plan for ED Patient: Referrals: Pawel Banda MD [Primary Care Provider] -
--- NOTE | 2018-12-02 18:07 | NURSING ---
DARIUS COLE, CP
[2018-12-02] MEDS: fentaNYL 100 MCG/2 ML Ampul 50 MCG IV (18:16)
--- NOTE | 2018-12-02 18:31 | EKG12_ITS ---
Test Reason : CP ADMIT Blood Pressure : / mmHG Vent. Rate : 132 BPM Atrial Rate : 264 BPM P-R Int : 000 ms QRS Dur : 070 ms QT Int : 362 ms P-R-T Axes : 074 139 066 degrees QTc Int : 536 ms Atrial flutter with variable A-V block with premature ventricular or aberrantly conducted complexes Left posterior fascicular block Septal infarct , age undetermined Confirmed by SALMA STAHL, JACOBY ([id number]), magazine editor MIKI PAULINO ([id number]) on 12/04/2018 1:51:38 PM Referred By: KATHLEEN Confirmed By:JACOBY MARSH MD
--- NOTE | 2018-12-02 19:19 | PCM.HP.STD ---
Problem List (1) Atrial fibrillation with RVR Status: Acute History of Present Illness Date of Admission: 12/02/18 Chief Complaint: palpitations. chest pain. The patient is a 38 year old M presents with palpitations. Palpitations have been ongoing since August but it would come and go. Over the past week or so, is been more persistent where he is in palpitations more so is not. Is also been having midsternal chest pain that is nonradiating. Patient presented to the emergency room and found to be in atrial fibrillation with RVR. Received Cardizem IV which did temporarily improve his heart rate but only 2 reverted back to RVR again. Cardiology was contacted and advised starting patient on amiodarone drip. Was advised for cardioversion, however the patient declined due to concern for procedure itself despite reassurances that he would be sedated for the procedure. Patient states that he has been compliant with his medications and has been going to dialysis with the dialysis today where he is still having symptoms at that time. Patient did undergo a left heart catheterization in August 2018 where it was noted that he had a distal left circumflex spasm that was corrected with intracoronary nitroglycerin. He did have a transosteal echocardiogram back in January of this year that showed severely calcified mitral valve with a severely thickened annulus. Increased trans-valvular gradient and velocity. Consistent with moderate to severe mitral stenosis. [] Past Medical History Past Medical History (Chronic Problems): Chronic Problems (Last Reviewed 10/09/18 @ 13:46 by Genesis Willett) Mitral valve stenosis (Chronic) Sleep apnea (Chronic) Lightheadedness (Chronic) Chronic pelvic pain in male (Chronic) Pelvic mass (Chronic) Hematuria (Chronic) Hearing loss (Chronic) in both ears Anemia of chronic disorder (Chronic) History of bacterial endocarditis (Chronic) Hypertension (Chronic) ESRD (end stage renal disease) (Chronic) Due to hypertension, On hemodialysis, TTS, followed by Dr. Goncalves Morbidly obese (Chronic) Sleep apnea (Chronic) 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 due to renal insufficiency (Chronic) Medical History: Medical History (Last Updated 12/02/18 @ 19:24 by Piero Addison DO) Mitral valve stenosis (Chronic) I05.0 Sleep apnea (Chronic) G47.30 History of blood clots (Acute) Z86.718 fistula developed a clot and had to be surgically removed Hearing loss (Chronic) H91.90 in both ears Afib I48.91 ESRD (end stage renal disease) N18.6 Anemia of chronic disease D63.8 HTN (hypertension) I10 Allergies No Known Allergies Allergy (Verified 12/02/18 14:27) Home Medications: Ambulatory Orders Medication Instructions Recorded cinacalcet 60 mg tablet 60 mg PO MOWEFR 10/10/17 Ferric Citrate [Auryxia] 630 tab PO TIDCM 05/15/18 Diltiazem CD [Cardizem CD] 120 mg PO DAILY #30 cap 09/19/18 Apixaban [Eliquis] 2.5 mg PO BID 12/02/18 Hydrocodone/Acetaminophen 1 tab PO Q6H PRN PRN 12/02/18 [Hydrocodone-Acetamin 5-325 mg] Metoprolol Tartrate 25 mg PO BID 12/02/18 Surgical History: herniorrhaphy, - Smoking Status: Never smoker Tobacco Use: Non-smoker Alcohol: None Drugs: None - *Family History Maternal History Items: Unknown - Patient is adopted and does not know his family history Review of Systems Constitutional: Denies: Anorexia, Chills, Fever, Night Sweats Eyes: Denies: Blurred vision, Double vision HEENT: Denies: Head Aches, Sinus Congestion, Sinus Drainage Cardiovascular: Reports: Chest Pain, Palpitations. Denies: Edema Respiratory: Denies: Cough, Shortness of Breath Gastrointestinal: Denies: Abdominal Pain, Nausea, Vomiting Genitourinary: Reports: Hematuria - Did have a cystoscopy that showed no obvious source for his hematuria. Otherwise patient really makes scant to no urine.. Denies: Dysuria Musculoskeletal: Denies: Joint Pain, Joint Tenderness Skin: Denies: Rash, Wounds Neurological: Denies: Numbness, Tingling, Focal weakness Psychiatric: Denies: Anxiety, Depression, Homicidal Ideations, Suicidal Ideations Endocrine: Denies: Change in Body Habitus, Heat/ Cold Intolerance, Polyuria Hematologic/ Lymphatic: Denies: Easy Bruising, Easy Bleeding Comment: A 10 point review of systems were negative except as mentioned in the history of present illness and the other review of systems. VTE Information - Inpt Only VTE Present on Admission: No VTE Mechan Device Prophylaxis: None VTE Pharm Prophylaxis ordered?: Yes Patient Problems: Active and Suspected Problems (Last Reviewed 10/09/18 @ 13:46 by Genesis Willett) Atrial fibrillation with RVR (Acute) - Physical Exam General: Alert, Cooperative, No apparent distress HEENT: Atraumatic, Normocephalic Neck: No Nodes, Thyroid Normal Size and Texture Lungs: Clear to auscultation, Normal air movement, No rhonchi, No wheeze Cardiovascular: Irregular Rate, Tachycardic Abdomen: Bowel Sounds Present, Soft, Non Tender, Non-Distended, No Hepato-splenomegaly Extremities: No edema, No Calf Tenderness Skin: No rashes, No breakdown Psych/Mental Status: Normal Affect, Appropriate Vital Signs Temp Pulse Resp BP Pulse Ox 36.6 C 126 H 13 124/84 H 100 12/02/18 18:39 12/02/18 19:00 12/02/18 19:00 12/02/18 19:00 12/02/18 19:00 Oxygen Flow Rate (L/min) 2 Oxygen Delivery Method Room Air Weight: 134 kg Body Mass Index (BMI) 42.3 Laboratory Tests Past 24 Hrs 12/02/18 12/02/18 12/02/18 14:50 15:45 18:57 WBC 5.7 RBC 4.10 L Hgb 11.6 L Hct 38.6 L MCV 94.1 H MCH 28.3 MCHC 30.1 L RDW 15.1 H RDW Differential 50.4 H Plt Count 192 MPV 11.1 Immature Gran % (Auto) 0.200 Neut % (Auto) 53.2 Lymph % (Auto) 22.4 Parker % (Auto) 19.3 H Eos % (Auto) 4.4 Baso % (Auto) 0.5 Absolute Neuts (auto) 3.0 Absolute Lymphs (auto) 1.28 Total Counted Not Reportable Sodium 133 L Potassium 5.2 H Chloride 95 L Carbon Dioxide 25.0 Anion Gap 13 BUN 66 H Creatinine 13.40 H* Estim Creat Clear Calc 8.12 Est GFR (MDRD) Af Amer 5 L Est GFR (MDRD) Non-Af 5 L BUN/Creatinine Ratio 4.9 L Glucose 112 H Calcium 8.1 L Troponin I 0.023 Pending Assessment/Plan All Active Problems (Last Reviewed 10/09/18 @ 13:46 by Genesis Willett) Atrial fibrillation with RVR (Acute) HCAP (healthcare-associated pneumonia) (Acute) Chest pain at rest (Acute) Hyperkalemia (Acute) Chronic kidney disease-mineral and bone disorder (Acute) Junctional tachycardia (Acute) Dyspnea (Acute) Clotted dialysis access (Acute) History of blood clots (Acute) Acute viral bronchitis (Acute) Chest pain, musculoskeletal (Acute) Chest pain (Acute) 1. Atrial fibrillation with RVR. Refractory to the diltiazem bolus. Patient has been initiated on amiodarone drip. Cardiology has been consulted will further assist in regards to management of the atrial fibrillation with RVR. Cycle troponins. Patient is anticoagulated on exam. Patient was recently admitted at [facility] for apparently cardiac reasons but is unclear what was going on during that hospitalization. Records have been requested to further evaluate. 2. Chest pain: Reproducible on exam. Not felt to be acutely cardiac. Patient had a vasospasm that may have been related with his a cardiac catheterization back in August but no obstructive coronary disease. We will cycle troponins bed do not anticipate any invasive measures regards to further evaluating this since he is already had a left heart catheterization previously. 3. End-stage renal disease: On hemodialysis every Friday. Patient had an apparently completed his dialysis session today. 4. DVT prophylaxis: Patient is currently anticoagulated on apixaban. Code Visit Inpatient E&M: 98425 Init Hosp L2
--- NOTE | 2018-12-02 20:20 | CON.PCM_ITS ---
Problem List (1) Atrial fibrillation and flutter Status: Acute (2) Mitral valve disease Status: Chronic (3) Hypertension Status: Chronic (4) ESRD (end stage renal disease) Status: Chronic Comment: Due to hypertension, On hemodialysis, TTS, followed by Dr. Goncalves Reason for Consult Date of Consultation: 12/02/18 History of Present Illness: The patient is a 38 year old -[place]gent[place] male with a past cardiovascular history of paroxysmal atrial fibrillation, mitral valve disease/stenosis, hypertension, and end-stage renal disease on chronic hemodialysis, who now presents for evaluation of atrial flutter with rapid ventricular response. The patient states for some time now he has been noticing his heart rate going faster. Associated with a sensation of heart rate going faster he has been having some chest discomfort. He has denied any acute respiratory related issues. There have been no issues with respect to acute CHF or pulmonary edema. He states he can become dizzy and lightheaded. However he has had no loss of consciousness. He has undergone cardiovascular evaluation recently. It appears that in August of 2018 he underwent evaluation with a pharmacologic stress nuclear imaging study. Based upon the report from his myocardial perfusion was thought to be normal. He also underwent evaluation with a diagnostic cardiac catheterization. Based upon the report he had normal coronary arteries with normal left ventricular size, wall motion, and systolic function with findings compatible with left ventricular hypertrophy. He apparently was treated medically. However in September of this year he was subsequently at [facility] for concerns of his underlying renal related issues and dialysis catheter related issues. During that evaluation he underwent further evaluation with transthoracic echocardiogram. Based upon her report the left ventricle was thought to be normal with an LVEF of 68%, the mitral valve was reported as demonstrating a severely calcified annulus with mitral valve being moderately thickened with mild calcification of the leaflets with mild thickening and calcification of mitral valve cords with findings compatible with moderately severe stenosis and borderline for severe stenosis with mild mitral valve regurgitation. He then underwent further evaluation with a transesophageal echocardiogram. The findings demonstrated a left ventricle which was thought that demonstrated normal LV systolic function, the left atrium was mildly enlarged, the mitral valve was considered compatible with moderate to severe mitral valve stenosis. Is tricuspid valve had less than 1+ TR. His estimated RV/PA systolic pressure was at 25 mmHg. He was evaluated in the emergency department. he was found have indeterminate troponin I levels. He was found to be in atrial flutter with rapid ventricular response. He was treated with IV diltiazem and IV amiodarone. He was offered synchronized biphasic DC cardioversion by the emergency department staff as he claims his anticoagulation had not been interrupted. However, he declined and attempt at DC cardioversion. He requested hospitalization for further evaluation and care. [] Past Medical History Allergies/Adverse Reactions: Allergies No Known Allergies Allergy (Verified 12/02/18 14:27) Home Medications: Ambulatory Orders Medication Instructions Recorded cinacalcet 60 mg tablet 60 mg PO MOWEFR 10/10/17 Ferric Citrate [Auryxia] 630 tab PO TIDCM 05/15/18 Diltiazem CD [Cardizem CD] 120 mg PO DAILY #30 cap 09/19/18 Apixaban [Eliquis] 2.5 mg PO BID 12/02/18 Hydrocodone/Acetaminophen 1 tab PO Q6H PRN PRN 12/02/18 [Hydrocodone-Acetamin 5-325 mg] Metoprolol Tartrate 25 mg PO BID 12/02/18 Past Medical History (Chronic Problems): Chronic Problems (Last Updated 12/02/18 @ 19:24 by Piero Addison DO) Anemia of chronic disorder (Chronic) History of bacterial endocarditis (Chronic) Hypertension (Chronic) ESRD (end stage renal disease) (Chronic) Due to hypertension, On hemodialysis, TTS, followed by Dr. Goncalves Morbidly obese (Chronic) Sleep apnea (Chronic) 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 due to renal insufficiency (Chronic) Hematuria (Chronic) Pelvic mass (Chronic) Chronic pelvic pain in male (Chronic) Lightheadedness (Chronic) Mitral valve disease (Chronic) Mitral valve stenosis (Chronic) Sleep apnea (Chronic) Hearing loss (Chronic) in both ears Surgical History: herniorrhaphy, - - *Family History Maternal History Items: Unknown - Patient is adopted and does not know his family history Smoking Status: Never smoker Tobacco Use: Non-smoker Alcohol: None Drugs: None Review of Systems - Review of Systems General: Denies: Fever, Night Sweats, Fatigue Cardiovascular: Reports: Chest Discomfort, Palpitations, Dizziness. Denies: Shortness of Breath, Orthopnea, PND, Peripheral Edema, Lightheadedness, Near Syncope, Syncope Respiratory: Denies: Cough, Sputum Production, Hemoptysis Gastrointestinal: Denies: Hematemesis, Hematochezia, Melena Genitourinary: Denies: Dysuria, Hematuria Skin: Denies: Rash Subjectve: This is a 38-year-old male who appears to be resting comfortably at the moment in no acute distress. Objective: Vital Signs Temp Pulse Resp BP Pulse Ox 98 F 127 H 13 124/84 H 100 12/02/18 18:39 12/02/18 19:00 12/02/18 19:00 12/02/18 19:00 12/02/18 19:00 Oxygen Flow Rate (L/min) 2 Oxygen Delivery Method Room Air Weight: 295 lb 6.711 oz Body Mass Index (BMI) 42.3 General: Awake, Alert, Oriented x 3, Cooperative, No Acute Distress HEENT: Atraumatic, Normocephalic, PERRL, EOMI, Sclera Non Icteric Oral: Moist Mucosa Neck: Supple, Good ROM, No JVD Lungs: Clear to auscultation Cardiovascular: Irregular Rhythm, Normal S1, Normal S2 Vascular: No Carotid Bruits Abdomen: Bowel Sounds Present, Soft, Non Tender Extremities: No Cyanosis, No Clubbing, No edema Psych/Mental Status: Appropriate 12/02/18 14:50: Sodium 133 L, Potassium 5.2 H, Chloride 95 L, Carbon Dioxide 25.0, Anion Gap 13, BUN 66 H, Creatinine 13.40 H*, Est GFR (MDRD) Af Amer 5 L, Est GFR (MDRD) Non-Af 5 L, BUN/Creatinine Ratio 4.9 L, Glucose 112 H, Calcium 8.1 L, Troponin I 0.023 12/02/18 15:45: WBC 5.7, RBC 4.10 L, Hgb 11.6 L, Hct 38.6 L, MCV 94.1 H, MCH 28.3, MCHC 30.1 L, RDW 15.1 H, RDW Differential 50.4 H, Plt Count 192, MPV 11.1, Immature Gran % (Auto) 0.200, Neut % (Auto) 53.2, Lymph % (Auto) 22.4, [place] % (Auto) 19.3 H, Eos % (Auto) 4.4, Baso % (Auto) 0.5, Absolute Neuts (auto) 3.0, Total Counted Not Reportable 12/02/18 18:57: Troponin I 0.028 Rhythm:As noted above EKG:atrial flutter; rightward axis; possible left posterior fascicular block; poor R-wave progression; septal TN pattern of indeterminate age cannot be excluded ECHO:as noted above Stress Test:as noted above Cardiac Cath:as noted above Assessment/Plan 1. Atrial flutter The patient's demonstrated findings compatible with atrial flutter. This may be related to a combination of factors including his underlying cardiovascular disease with mitral valve disease as well as his hypertension superimposed upon his other multiple medical issues. At the present time he is being monitored. He is continuing rate control therapy with beta blockers. He is on IV amiodarone in an attempt to regain and maintain sinus rhythm. He has continued his oral 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 therapy. He has undergone noninvasive and invasive studies recently as noted above. At the present time if he does not demonstrate improvement/resolution of his atrial dysrhythmia he should reconsider his position for the possibility of synchronized biphasic DC cardioversion. Also, he may need to be considered for future EP consultation for possible flutter ablation therapy. 2. Mitral valve disease/stenosis He has undergone recent evaluation with noninvasive studies as described above. He does have underlying mitral valve disease. He may need evaluation at a tertiary care center for consideration of any type of percutaneous option to assist with mitral valve disease process if he is not a surgical candidate based upon his significant mitral annular calcification. 3. Hypertension His blood pressure will be followed. He will continue medical management. 4. End-stage renal disease on chronic hemodialysis He does have indeterminate troponins. Noting his recent noninvasive and invasive cardiovascular evaluation not demonstrating underlying CAD that would contribute to such a finding, his troponin levels may be a secondary event based upon his multiple medical issues including his end-stage renal disease. He will need continued evaluation care/nephrology. Comment: The patient's case has been discussed and reviewed with the patient and a [facility] emergency department staff. This note was generated using a voice recognition system and there may be incorrect words, spelling or punctuation that were not noted when reviewing the office note prior to saving.
[2018-12-02] MEDS: oxyCODONE 5 MG Tablet PO (20:49)
[2018-12-02] MEDS: Metoprolol Tartrate 25 MG Tablet PO ×2 (20:53→23:03)
[2018-12-02] MEDS: APIXABAN 2.5 MG TABLET PO (21:07)
[2018-12-03] VITALS (38 sets, daily range): BP systolic 73–136; BP diastolic 44–102; PULSE 47–111; RESP 11–26; TEMP 36.5–36.7; O2SAT 92–100; BMI 42.3
[2018-12-03 05:45] LABS: Anion Gap 15 (5-15); BUN 75 mg/dL (7-18); Calcium,Total 7.9 mg/dL (8.5-10.1); Chloride 97 mmol/L (98-107); EST Glomerular Filtration Rate 4 mL/min (>60); Est Glom Filt Rate - Afr Amer 5 mL/min (>60); Estimated Creatinine Clearance 7.08 ml/min; Glucose 90 mg/dL (74-106); Potassium 5.7 mmol/L (3.5-5.1); Sodium Level 137 mmol/L (136-145)
--- NOTE | 2018-12-03 05:55 | EKG12_ITS ---
Test Reason : AM Blood Pressure : / mmHG Vent. Rate : 185 BPM Atrial Rate : 312 BPM P-R Int : 000 ms QRS Dur : 120 ms QT Int : 230 ms P-R-T Axes : -88 070 154 degrees QTc Int : 403 ms Atrial flutter with variable A-V block with premature ventricular or aberrantly conducted complexes Low voltage QRS Non-specific intra-ventricular conduction delay ST elevation consider inferior injury or acute infarct Confirmed by SALMA STAHL, JACOBY ([id number]), non linear editor MIKI PAULINO ([id number]) on 12/04/2018 1:49:54 PM Referred By: KATHLEEN Confirmed By:JACOBY MARSH MD
[2018-12-03] MEDS: APIXABAN 2.5 MG TABLET PO ×2 (09:18→23:20)
[2018-12-03] MEDS: Metoprolol Tartrate 25 MG Tablet PO ×2 (09:18→23:19)
[2018-12-03] MEDS: oxyCODONE 5 MG Tablet PO ×3 (09:19→23:19)
--- NOTE | 2018-12-03 11:20 | CASEMGMT ---
RACHEL PARNELL assessment: Face to Face with patient for initial transition planning/care coordination assessment. RACHEL PARNELL introduced self and role at [facility], pt voices understanding and consents to assessment at this time. Pt is lying in bed in no distress at this time. Pt is A/Ox4 at this time and answers all questions appropriately at this time. Care providers, pharmacy, and demographics verified/updated at this time. PCP: [facility] Specialists: camilla Melendez Preferred Pharmacy: [facility] [place] Insurance: [facility] A/B, [facility] Prescription Benefit: Yes Living Will/HPOA: Pt states does not have LW/HPOA and declines info at this time. LNOK: London Weston, ; Yara Weston, mother Living Arrangements: Pt states lives with and son in a 1 story apt with a flight of stairs into apt and states no concerns at home at this time. Pt states is normally independent with ADL's. Transportation: Pt states drives self and states no transportation concerns at this time. DME/HHC: Pt states has a cpap thru [facility]. Pt goes to dialysis MWF at 0710 thru [facility]. Pt plans to keep appt tomorrow am. Pt states no hx of HHC or SNF in the past. Pt states no concerns with going home at time of discharge. Pt is disabled. Pt states does not smoke or drink ETOH. Pt states no further concerns/needs at this time. CM to follow for any further discharge planning/needs. Advised pt to ask for CM if any further questions/concerns/needs arise, voices understanding. Plan: [place] RACHEL PARNELL
--- NOTE | 2018-12-03 12:30 | NURSING ---
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 One shock administered at 200J. Converted to NSR. VSS.
--- NOTE | 2018-12-03 13:31 | PCM.OP.PRO ---
Procedure Report Date of Procedure: 12/03/18 CONSCIOUS SEDATION REPORT DATE OF SERVICE: December 03, 2018 BRIEF HISTORY OF PRESENT ILLNESS: The patient is a 38-year-old male, currently admitted to [facility], who is scheduled to undergo an elective cardioversion due to underlying atrial fibrillation. The patient is currently anticoagulated and receiving amiodarone. He has never undergone a cardioversion previously. He denies any previous anesthetic complications. He does have a history of end-stage renal disease on hemodialysis. In addition, he has known obstructive sleep apnea, for which he is prescribed nocturnal Pap therapy. His last surface echocardiogram revealed a normal ejection fraction. PHYSICAL EXAMINATION: VITAL SIGNS: Reviewed and were acceptable. GENERAL: The patient is an obese -Kyr[place] male, in no apparent distress, speaking in full sentences. HEENT: Normocephalic, atraumatic. Mucous membranes are moist and pink. Good mouth opening noted. Trachea is midline. MP III CHEST: S1, S2 irregularly irregular. No murmurs, rubs or gallops were noted. LUNGS: Clear to auscultation bilaterally without appreciable wheezes, rales or rhonchi. ABDOMEN: Soft, nontender, nondistended. Positive bowel sounds. EXTREMITIES: There is no clubbing, cyanosis or edema. ASA Class: II DESCRIPTION OF PROCEDURE: After confirmation of informed consent, the patient's anesthesia plan was reviewed in detail. Propofol was chosen. Risks and benefits were reviewed and the patient agreed to proceed. At 1215, the patient was given his first bolus of propofol. In total, the patient required 120 mg of propofol to achieve an appropriate level of sedation. Following this, the patient was given a 200 joule synchronized cardioversion by Dr. Moreno at the bedside. This was successful in achieving normal sinus rhythm. The patient was monitored until 1227, at which time he reached his baseline mental status and function. The patient tolerated the procedure well. COMPLICATIONS: None ESTIMATED BLOOD LOSS: None RECOMMENDATIONS: Okay to recover in usual fashion. Code Visit 9xxxx: Other Procedure See Report - [id number]
--- NOTE | 2018-12-03 13:35 | PRO.PCM_ITS ---
Procedure Report Date of Procedure: 12/03/18 CONSCIOUS SEDATION REPORT DATE OF SERVICE: December 03, 2018 BRIEF HISTORY OF PRESENT ILLNESS: The patient is a 38-year-old male, currently admitted to [facility], who is scheduled to undergo an elective cardioversion due to underlying atrial fibrillation. The patient is currently anticoagulated and receiving amiodarone. He has never undergone a cardioversion previously. He denies any previous anesthetic complications. He does have a history of end- stage renal disease on hemodialysis. In addition, he has known obstructive sleep apnea, for which he is prescribed nocturnal Pap therapy. His last surface echocardiogram revealed a normal ejection fraction. PHYSICAL EXAMINATION: VITAL SIGNS: Reviewed and were acceptable. GENERAL: The patient is an obese -Mauritanian male, in no apparent distress, speaking in full sentences. HEENT: Normocephalic, atraumatic. Mucous membranes are moist and pink. Good mouth opening noted. Trachea is midline. MP III CHEST: S1, S2 irregularly irregular. No murmurs, rubs or gallops were noted. LUNGS: Clear to auscultation bilaterally without appreciable wheezes, rales or rhonchi. ABDOMEN: Soft, nontender, nondistended. Positive bowel sounds. EXTREMITIES: There is no clubbing, cyanosis or edema. ASA Class: II DESCRIPTION OF PROCEDURE: After confirmation of informed consent, the patient's anesthesia plan was reviewed in detail. Propofol was chosen. Risks and benefits were reviewed and the patient agreed to proceed. At 1215, the patient was given his first bolus of propofol. In total, the patient required 120 mg of propofol to achieve an appropriate level of sedation. Following this, the patient was given a 200 j oule synchronized cardioversion by Dr. Moreno at the bedside. This was successful in achieving normal sinus rhythm. The patient was monitored until 1227, at which time he reached his baseline mental status and function. The patient tolerated the procedure well. COMPLICATIONS: None ESTIMATED BLOOD LOSS: None RECOMMENDATIONS: Okay to recover in usual fashion. Code Visit 9xxxx: Other Procedure See Report - [id number]
[2018-12-03] MEDS: Heparin 10,000 UNITS/10 ML Vial IV ×2 (14:00→19:00)
--- NOTE | 2018-12-03 14:18 | PCM.OP.PRO ---
Procedure Report Date of Procedure: 12/03/18 DC cardioversion. Symptomatic atrial flutter. Mr. Weston is a 38-year-old man with a history of recent onset symptomatic atrial flutter. Patient has been on anticoagulation. After informed consent was obtained the patient was seen by Dr. Kc of the critical care division. Anterior-posterior pads were applied. 120 mg of intravenous propofol was then given. 200 J of synchronized DC cardioversion energy were then applied with prompt reversal to sinus rhythm. The patient tolerated the procedure well. Conclusion: Successful DC cardioversion from atrial flutter to sinus rhythm.
[2018-12-03] MEDS: SEVELAMER CARBONATE 800 MG TABLET PO ×2 (14:30→17:45)
--- NOTE | 2018-12-03 14:44 | CHAPLAIN ---
Type of Pastoral Visit _x__ Initial Visit ___ Follow-up Visit ___ On-call Visit ___ General Patient Visit ___ Spiritual Assessment ___ Family Conference ___ Bereavement ___ Rapid Response ___ Code Blue ___ Other (describe below) Pastoral Care Referral From _x__ Patient ___ Family ___ Nurse ___ Physician ___ Coin Counter And Wrapper ___ Oil Well Perforator Operator ___ Other (describe below) Sacrament/Intervention _x__ Active listening ___ Anointing ___ Evangelical ___ Bereavement ___ Communion _x__ Layla exploration ___ _x__ Life review _x__ Prayer ___ Reconciliation ___ Sacrament of Sick _x__ Supportive presence ___ Wedding ___ Other (describe below) Pastoral Comments patient expresses feelings of being overwhelmed and frustrated at illness and inability to see improvement; long discussion about layla and ministry by patient; prayer welcomed; further spiritual support is sought by pt in the future
--- NOTE | 2018-12-03 15:29 | PCM.CONS.R ---
Problem List (1) ESRD (end stage renal disease) Status: Chronic Comment: Due to hypertension, On hemodialysis, TTS, followed by Dr. Goncalves Consultation - Renal 12/03/18 PCP/ Referring MD: Requesting physician: [] Primary care physician: Pawel Banda MD Reason for Consultation:: ESRD - History of Present Illness History of Present Illness: The patient is a 38 year old M well known to us. ESRD on HD MWF schedule. last HD was yesterday several issues recently. Clotted both upper arm access. was supposed to get AVF but not done yet. required several catheter exchanges over the last 2 months developed AFIB after dialysis and admitted here s/p cardioversion this am - Allergies Allergies: Allergies No Known Allergies Allergy (Verified 12/02/18 14:27) - Current Medications Current Medications: Current Medications Acetaminophen (Tylenol) 650 mg PO Q6H PRN PRN PRN Reason: Mild Pain (scale 0-3)/T>100.7 Apixaban (Eliquis) 2.5 mg PO BID [facility] Last Admin: 12/03/18 09:18 Dose: 2.5 mg Cinacalcet (Sensipar) 60 mg PO MOWEFR [facility] Sodium Chloride () 500 mls @ 15 mls/hr IV .[id number] [facility] Last Admin: 12/03/18 08:17 Dose: Not Given Magnesium Hydroxide (Milk Of Magnesia) 30 ml PO DAILY PRN PRN Reason: Constipation Metoprolol Tartrate (Lopressor (Beta Yossi)) 25 mg PO BID [facility] Last Admin: 12/03/18 09:18 Dose: 25 mg Oxycodone HCl (Oxyir) 5 mg PO Q4H PRN PRN PRN Reason: Moderate Pain (pain scale 4-5) Last Admin: 12/03/18 15:24 Dose: 5 mg Sevelamer Carbonate (Renvela) 800 mg PO TIDCM [facility] Last Admin: 12/03/18 14:30 Dose: 800 mg Sodium Chloride () 5 - 15 ml IV UD PRN PRN Reason: SALINE FLUSH - Past Medical History Past Medical History (Chronic Problems): Chronic Problems (Last Updated 12/02/18 @ 19:24 by Piero Addison DO) Anemia of chronic disorder (Chronic) History of bacterial endocarditis (Chronic) Hypertension (Chronic) ESRD (end stage renal disease) (Chronic) Due to hypertension, On hemodialysis, TTS, followed by Dr. Goncalves Morbidly obese (Chronic) Sleep apnea (Chronic) 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 due to renal insufficiency (Chronic) Hematuria (Chronic) Pelvic mass (Chronic) Chronic pelvic pain in male (Chronic) Lightheadedness (Chronic) Mitral valve disease (Chronic) Mitral valve stenosis (Chronic) Sleep apnea (Chronic) Hearing loss (Chronic) in both ears - Past Surgical History Surgical History: herniorrhaphy, - - Social History Smoking Status: Never smoker Alcohol: None Drugs: None - Family History Maternal History Items: Unknown - Patient is adopted and does not know his family history Review of Systems Constitutional: Denies: Chills, Fever, Weight Change HEENT: Denies: Head Aches, Sinus Congestion, Sinus Drainage Cardiovascular: Denies: Chest Pain, Palpitations Respiratory: Denies: Cough, Shortness of breath at rest, Sputum production Gastrointestinal: Denies: Abdominal Pain, Nausea, Vomiting Genitourinary: Denies: Dysuria Musculoskeletal: Denies: Joint Pain, Joint Tenderness Skin: Denies: Rash, Wounds Neurological: Denies: Numbness, Tingling, Focal weakness Psychiatric: Denies: Anxiety, Depression, Homicidal Ideations, Suicidal Ideations Hematologic/ Lymphatic: Denies: Easy Bruising, Easy Bleeding Patient Problems: Active and Suspected Problems (Last Updated 12/02/18 @ 19:24 by Piero Addison DO) Atrial fibrillation with RVR (Acute) Atrial fibrillation and flutter (Acute) - Physical Exam General: Alert, Oriented x3, Cooperative HEENT: Atraumatic, PERRLA, EOMI, Normocephalic Neck: Supple, No JVD, Negative Carotid Bruits Lungs: Clear to auscultation, Normal air movement Cardiovascular: Regular rate, No murmurs Abdomen: Bowel Sounds Present, Soft, Non Tender Extremities: No edema, Capillary Refill Less than 3 Seconds Skin: No rashes, No breakdown Musculoskeletal: No Tenderness to Palpation of Joints or Extremities Neurological: Cranial nerves II-XII grossly intact Psych/Mental Status: Normal Affect, Appropriate Vital Signs Temp Pulse Resp BP Pulse Ox 98.0 F 90 17 86/76 L 100 12/03/18 12:00 12/03/18 15:01 12/03/18 15:01 12/03/18 15:01 12/03/18 15:01 Oxygen Flow Rate (L/min) 2 Oxygen Delivery Method Room Air Weight: 134 kg Body Mass Index (BMI) 42.3 Intake and Output for Last 24 Hours 12/01/18 12/02/18 12/03/18 23:59 23:59 23:59 Intake Total 164 / 164 212.8 / 212.8 Balance 164 / 164 212.8 / 212.8 Laboratory Tests Past 24 Hrs 12/02/18 12/02/18 12/02/18 15:45 18:57 22:00 WBC 5.7 RBC 4.10 L Hgb 11.6 L Hct 38.6 L MCV 94.1 H MCH 28.3 MCHC 30.1 L RDW 15.1 H RDW Differential 50.4 H Plt Count 192 MPV 11.1 Immature Gran % (Auto) 0.200 Neut % (Auto) 53.2 Lymph % (Auto) 22.4 [place] % (Auto) 19.3 H Eos % (Auto) 4.4 Baso % (Auto) 0.5 Absolute Neuts (auto) 3.0 Absolute Lymphs (auto) 1.28 Total Counted Not Reportable Sodium Potassium Chloride Carbon Dioxide Anion Gap BUN Creatinine Estim Creat Clear Calc Est GFR (MDRD) Af Amer Est GFR (MDRD) Non-Af BUN/Creatinine Ratio Glucose Calcium Troponin I 0.028 < 0.015 12/03/18 05:05 WBC RBC Hgb Hct MCV MCH MCHC RDW RDW Differential Plt Count MPV Immature Gran % (Auto) Neut % (Auto) Lymph % (Auto) [place] % (Auto) Eos % (Auto) Baso % (Auto) Absolute Neuts (auto) Absolute Lymphs (auto) Total Counted Sodium 137 Potassium 5.7 H Chloride 97 L Carbon Dioxide 25.0 Anion Gap 15 BUN 75 H Creatinine 14.90 H* Estim Creat Clear Calc 7.08 Est GFR (MDRD) Af Amer 5 L Est GFR (MDRD) Non-Af 4 L BUN/Creatinine Ratio 5.0 L Glucose 90 Calcium 7.9 L Troponin I Assessment/Plan All Active Problems (Last Updated 12/02/18 @ 19:24 by Piero Addison DO) Acute viral bronchitis (Acute) Chest pain, musculoskeletal (Acute) Chest pain (Acute) Junctional tachycardia (Acute) Dyspnea (Acute) Clotted dialysis access (Acute) HCAP (healthcare-associated pneumonia) (Acute) Chest pain at rest (Acute) Hyperkalemia (Acute) Chronic kidney disease-mineral and bone disorder (Acute) Atrial fibrillation with RVR (Acute) Atrial fibrillation and flutter (Acute) History of blood clots (Acute) ESRD. HD today AFIB. s/p cardioversion. Access issues. has been ongoing issue for last 2 months. required several catheter exchanges. He was supposed to get another exchange today but could not be done due to hospitalization. will reschedule. dw Dr Colvin
--- NOTE | 2018-12-03 19:31 | PN_ITS ---
Patient Problems: Active and Suspected Problems (Last Updated 12/02/18 @ 19:24 by Piero Addison DO) Atrial fibrillation with RVR (Acute) Atrial fibrillation and flutter (Acute) Subjective: Patient was seen and examined today, he underwent cardioversion successfully today, unfortunately nephrology feels that they want to access his dialysis catheter today and they are not able to do this until later on this afternoon or early this evening. Patient will need a 3-hour dialysis run, then he will need to have another dialysis run tomorrow. I have elected to keep the patient in the hospital and complete dialysis in the morning again after which if he remains in sinus rhythm, he will be discharged home. - Physical Exam General: Alert, Oriented x3, Cooperative, No apparent distress, Well developed HEENT: Atraumatic, PERRLA, EOMI, Normocephalic Oral: Moist Mucosa Neck: Supple, Trachea Midline, Thyroid Normal Size and Texture Lungs: Clear to auscultation, Normal air movement, No rhonchi, No wheeze Cardiovascular: Regular rate, Regular Rhythm, Normal S1, Normal S2, No murmurs, No Ectopic Activity, PMI Normal, No rub noted, No Gallop Abdomen: Bowel Sounds Present, Soft, Non Tender, Non-Distended, No hernias noted Extremities: No clubbing, No cyanosis, Capillary Refill Less than 3 Seconds Skin: No rashes, No breakdown Musculoskeletal: No Tenderness to Palpation of Joints or Extremities Neurological: Cranial nerves II-XII grossly intact, Neuro grossly intact, Sensory exam intact to light touch and pain, Coordination normal Psych/Mental Status: Normal Affect, Appropriate, Alert and oriented to time, rosa maria ce, person, mood and affect Vital Signs Temp Pulse Resp BP Pulse Ox 97.7 F L 91 14 96/44 L 99 12/03/18 16:00 12/03/18 17:00 12/03/18 17:00 12/03/18 17:00 12/03/18 17:00 Oxygen Flow Rate (L/min) 2 Oxygen Delivery Method Room Air Weight: 134 kg Body Mass Index (BMI) 42.3 Intake and Output for Last 24 Hours 12/01/18 12/02/18 12/03/18 23:59 23:59 23:59 Intake Total 164 / 164 1172.8 / 1172.8 Balance 164 / 164 1172.8 / 1172.8 Laboratory Tests Past 24 Hrs 12/02/18 12/03/18 22:00 05:05 Sodium 137 Potassium 5.7 H Chloride 97 L Carbon Dioxide 25.0 Anion Gap 15 BUN 75 H Creatinine 14.90 H* Estim Creat Clear Calc 7.08 Est GFR (MDRD) Af Amer 5 L Est GFR (MDRD) Non-Af 4 L BUN/Creatinine Ratio 5.0 L Glucose 90 Calcium 7.9 L Troponin I < 0.015 Medical Necessity - Tobacco Use Smoking Status: Never smoker Tobacco Use: Non-smoker Assessment/Plan All Active Problems (Last Updated 12/02/18 @ 19:24 by Piero Addison DO) Acute viral bronchitis (Resolved) Chest pain, musculoskeletal (Resolved) Chest pain (Resolved) Junctional tachycardia (Resolved) Dyspnea (Resolved) Clotted dialysis access (Resolved) HCAP (healthcare-associated pneumonia) (Resolved) Chest pain at rest (Resolved) Hyperkalemia (Acute) Atrial fibrillation with RVR (Acute) Atrial fibrillation and flutter (Acute) History of blood clots (Resolved) #1 symptomatic atrial flutter-converted to sinus rhythm at this time, patient will be continued to be monitored #2 end-stage renal disease on dialysis-patient will undergo dialysis today and then again tomorrow #3 obesity #4 mitral valve disease #5 hypertension #6 history of paroxysmal atrial fibrillation Code Visit Inpatient E&M: 05277 Subs Hosp L2
--- NOTE | 2018-12-03 22:26 | DIALYSIS ---
hemodialysis completed x 3 hours. -3469ml off. stable t/o. CVC with poor flows which is not new. CVC dressing changed and CVC locked with heparin to each lumen fill volume. Report to Joaquina RAMOS
[2018-12-03] MEDS: Acetaminophen 325 MG Tablet 650 MG PO (23:19)
[2018-12-04] VITALS (11 sets, daily range): BP systolic 78–117; BP diastolic 43–65; PULSE 88–110; RESP 16–20; TEMP 36.5–36.9; O2SAT 20–100
--- NOTE | 2018-12-04 07:29 | PN.CARD_ITS ---
Subjectve: Patient seen and evaluated. Underwent DC cardioversion yesterday. And appears to be maintaining sinus rhythm. Objective: Vital Signs Temp Pulse Resp BP Pulse Ox 98.2 F 89 18 95/52 L 100 12/04/18 03:37 12/04/18 03:37 12/04/18 03:37 12/04/18 03:37 12/04/18 03:37 Oxygen Flow Rate (L/min) 2 Oxygen Delivery Method Nasal Cannula Weight: 296 lb 8.348 oz Body Mass Index (BMI) 42.3 Intake and Output for Last 24 Hours 12/02/18 12/03/18 12/04/18 23:59 23:59 23:59 Intake Total 164 / 164 1172.8 / 1172.8 Output Total 3469 / 3469 Balance 164 / 164 -2296.2 / -2296.2 General: Awake, Alert, Oriented x 3 HEENT: PERRL, EOMI, Sclera Non Icteric Neck: Supple, Good ROM, No Lymph Node Enlargement Lungs: Clear to auscultation Cardiovascular: Regular Rhythm, Normal S1, Normal S2, No Murmurs, No Rubs, No Gallops Vascular: No Carotid Bruits, Normal Femoral Pulses, Normal Radial Pulses, Normal Dorsalis Pedal Pulse, Normal Posterior Tibial Pulses Abdomen: Bowel Sounds Present, Soft, Non Tender, No HSM, No Organomegaly Extremities: No Cyanosis, No Clubbing, No edema Neurological: No Focal Motor or Sensory Deficit Rhythm: EKG: ECHO: Stress Test: Cardiac Cath: PCI: CT Surgery: Holter monitor: EPS: PPM: CXR: Chest CT Scan: Medical Necessity - Tobacco Use Smoking Status: Never smoker Tobacco Use: Non-smoker Assessment/Plan 1. Atrial flutter The patient's demonstrated findings compatible with atrial flutter. This may be related to a combination of factors including his underlying cardiovascular disease with mitral valve disease as well as his hypertension superimposed upon his other multiple medical issues. He underwent DC cardioversion successfully yesterday and appears to be doing wel l. The plan will be to continue him on his current dose of Eliquis as well as his metoprolol. 2. Mitral valve disease/stenosis He has undergone recent evaluation with noninvasive studies as described above. He does have underlying mitral valve disease. He may need evaluation at a tertiary care center for consideration of any type of percutaneous option to assist with mitral valve disease process if he is not a surgical candidate based upon his significant mitral annular calcification. 3. Hypertension His blood pressure will be followed. He will continue medical management. 4. End-stage renal disease on chronic hemodialysis He does have indeterminate troponins. Noting his recent noninvasive and invasive cardiovascular evaluation not demonstrating underlying CAD that would contribute to such a finding, his troponin levels may be a secondary event based upon his multiple medical issues including his end-stage renal disease. He did undergo a recent cardiac catheterization. Thank you for allowing me to participate in the care of your patient. Please don't hesitate to call if any issues arise
--- NOTE | 2018-12-04 08:59 | EKG12_ITS ---
Test Reason : CP Blood Pressure : / mmHG Vent. Rate : 091 BPM Atrial Rate : 091 BPM P-R Int : 190 ms QRS Dur : 066 ms QT Int : 354 ms P-R-T Axes : 069 121 038 degrees QTc Int : 435 ms Normal sinus rhythm Left posterior fascicular block Septal infarct , age undetermined Abnormal ECG Confirmed by SALMA STAHL, JACOBY ([id number]), movie editor MIKI PAULINO ([id number]) on 12/11/2018 8:56:21 AM Referred By: SIMONE Confirmed By:JACOBY MARSH MD
--- NOTE | 2018-12-04 11:56 | DCINST_ITS ---
- Discharge Diagnoses Current Active Problems: Current Active and Chronic Problems (Last Updated 12/03/18 @ 19:32 by Shahram Colvin DO) Atrial fibrillation with RVR (Acute) Atrial fibrillation and flutter (Acute) Mitral valve disease (Chronic) You will use the following diet at home:: No restrictions Your food should be the consistency of: Regular Your liquids should be the consistency of: Regular/Thin Discharge Activity: Return to Normal Activity Weight Bearing Status: Full weight bearing Allergies/Adverse Reactions: Allergies No Known Allergies Allergy (Verified 12/02/18 14:27) Medications to take at Discharge cinacalcet 60 mg tablet 60 mg PO MOWEFR 10/10/17 Ferric Citrate [Auryxia] 630 tab PO TIDCM 05/15/18 Apixaban [Eliquis] 2.5 mg PO BID 12/02/18 Hydrocodone/Acetaminophen [Hydrocodone-Acetamin 5-325 mg] 1 tab PO Q6H PRN PRN 12/02/18 Metoprolol Tartrate 25 mg PO BID 12/02/18 Primary Care Physician: Pawel Banda MD [Primary Care Provider] - Please follow up with your Primary Care Physician in: in one week Test Results: Test results from this visit will be discussed in further detail at your follow- up appointment, if applicable. Please Follow Up With: Nnamdi Moreno MD When: in two weeks
--- NOTE | 2018-12-04 13:29 | DIALYSIS ---
Hemodialysis complete. 3.5 hour run. 2k bath. Net fluid removed = 2500 ml. Patient tolerated HD tx fairly well. Left fem CVC: site benign, dressing dry and intact. Lumen flushed with NS, filled to volume with Heparin, capped and clamped. Relayed message from [facility] to patient informing him that he needs to call [facility] when he gets home to reschedule a missed appointment to replace HD catheter. Report given to primary RN, Tarik.
--- NOTE | 2018-12-04 14:24 | PCM.PN.REN ---
Patient Problems: Active and Suspected Problems (Last Updated 12/03/18 @ 19:32 by Shahram Colvin DO) Atrial fibrillation with RVR (Acute) Atrial fibrillation and flutter (Acute) Subjective: no new complaints - Physical Exam General: Alert, Oriented x3, Cooperative HEENT: Atraumatic, PERRLA, EOMI, Normocephalic Neck: Supple, No JVD, Negative Carotid Bruits Lungs: Clear to auscultation, Normal air movement Cardiovascular: Regular rate, No murmurs Abdomen: Bowel Sounds Present, Soft, Non Tender Extremities: No edema, Capillary Refill Less than 3 Seconds Skin: No rashes, No breakdown Musculoskeletal: No Tenderness to Palpation of Joints or Extremities Neurological: Cranial nerves II-XII grossly intact Psych/Mental Status: Normal Affect, Appropriate Vital Signs Temp Pulse Resp BP Pulse Ox 98.4 F 104 H 16 101/52 L 96 12/04/18 13:27 12/04/18 13:27 12/04/18 13:27 12/04/18 13:27 12/04/18 13:27 Oxygen Flow Rate (L/min) 2 Oxygen Delivery Method Room Air Weight: 134.5 kg Body Mass Index (BMI) 42.3 Intake and Output for Last 24 Hours 12/02/18 12/03/18 12/04/18 23:59 23:59 23:59 Intake Total 164 / 164 1172.8 / 1172.8 240 / 240 Output Total 3469 / 3469 2500 / 2500 Balance 164 / 164 -2296.2 / -2296.2 -2260 / -2260 Medical Necessity - Tobacco Use Smoking Status: Never smoker Tobacco Use: Non-smoker Assessment/Plan All Active Problems (Last Updated 12/03/18 @ 19:32 by Shahram Colvin DO) Acute viral bronchitis (Resolved) Chest pain, musculoskeletal (Resolved) Chest pain (Resolved) Junctional tachycardia (Resolved) Dyspnea (Resolved) Clotted dialysis access (Resolved) HCAP (healthcare-associated pneumonia) (Resolved) Chest pain at rest (Resolved) Hyperkalemia (Acute) Atrial fibrillation with RVR (Acute) Atrial fibrillation and flutter (Acute) History of blood clots (Resolved) ESRD. HD today. seen on HD. see orders/flowsheets AFIB. s/p cardioversion. Access issues. has been ongoing issue for last 2 months. required several catheter exchanges. He was supposed to get another exchange today but could not be done due to hospitalization. will reschedule likely for next week. currently has a left femoral tunneled line. maximum access flows today are around 260 or so
[2018-12-04] MEDS: Heparin 10,000 UNITS/10 ML Vial 10000 UNITS IV (16:19)
[2018-12-04] MEDS: SEVELAMER CARBONATE 800 MG TABLET PO (16:19)
[2018-12-04] MEDS: Heparin 10,000 UNITS/10 ML Vial 5100 UNITS IV (16:19)
[2018-12-04] MEDS: APIXABAN 2.5 MG TABLET PO (16:20)
[2018-12-04] MEDS: Metoprolol Tartrate 25 MG Tablet PO (16:20)
[2018-12-04] MEDS: Cinacalcet HCl 30 MG Tablet 60 MG PO (16:20)
--- NOTE | 2018-12-06 11:24 | PCM.DC.SUM ---
Discharge Date and Diagnosis Date of Admission: 12/02/18 Date of Discharge: 12/04/18 - Primary Discharge Diagnosis #1 symptomatic atrial flutter-converted to sinus rhythm at this time #2 end-stage renal disease on dialysis #3 obesity #4 mitral valve disease #5 hypertension #6 history of paroxysmal atrial fibrillation - Secondary Discharge Diagnosis Chronic Problems (Last Updated 12/03/18 @ 19:32 by Shahram Colvin DO) Anemia of chronic disorder (Chronic) History of bacterial endocarditis (Chronic) Hypertension (Chronic) ESRD (end stage renal disease) (Chronic) Due to hypertension, On hemodialysis, TTS, followed by Dr. 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 Patient had some chest discomfort and came in for evaluation. Evaluation in the emergency room showed him to be in atrial flutter, his case was discussed with cardiology, he was advised to undergo cardioversion but the patient declined and the patient was given an amiodarone bolus and started on a drip under the direction of Dr. Chong. Patient was admitted to PCU and seen by cardiology, he consented to undergo cardioversion and on 12/03/18, he underwent cardioversion which was successful. Patient had to be dialyzed during his hospital stay and could not be discharged home on that day, he underwent dialysis the following morning also and was discharged home in stable condition on 12/04/18. Physical exam: On examination he appeared in good health and spirits. Vital signs as documented. Skin warm and dry and without overt rashes. Neck without JVD. Lungs clear. Heart exam notable for regular rhythm, normal sounds and absence of murmurs, rubs or gallops. Abdomen unremarkable and without evidence of organomegaly, masses, or abdominal aortic enlargement. Extremities nonedematous. Neuro: Cranial nerves II through XII are grossly intact, no focal motor deficits were noted, sensation to light touch and pinprick intact. Psych: Patient is alert and oriented x3, he does not appear anxious or depressed On 12/04/18, patient was seen and examined and discharged home in stable condition - Physical Exam Vital Signs Temp Pulse Resp BP Pulse Ox 97.7 F L 100 20 H 117/65 20 12/04/18 16:19 12/04/18 16:20 12/04/18 16:19 12/04/18 16:19 12/04/18 16:19 Oxygen Flow Rate (L/min) 2 Oxygen Delivery Method Room Air Weight: 134.5 kg Body Mass Index (BMI) 42.3 Intake and Output for Last 24 Hours 12/04/18 12/05/18 12/07/18 23:59 23:59 00:59 Intake Total 240 / 240 Output Total 2500 / 2500 Balance -2260 / -2260 Discharge Activity: Return to Normal Activity Weight Bearing Status: Full weight bearing Home Medications: Medications to take at Discharge cinacalcet 60 mg tablet 60 mg PO MOWEFR 10/10/17 Ferric Citrate [Auryxia] 630 tab PO TIDCM 05/15/18 Apixaban [Eliquis] 2.5 mg PO BID 12/02/18 Hydrocodone/Acetaminophen [Hydrocodone-Acetamin 5-325 mg] 1 tab PO Q6H PRN PRN 12/02/18 Metoprolol Tartrate 25 mg PO BID 12/02/18 Primary Care Physician: Pawel Banda MD [Primary Care Provider] - Please follow up with your Primary Care Physician in: in one week Please Follow Up With: Nnamdi Moreno MD When: in two weeks Please Follow Up With: Pawel Banda MD Disposition: Home Minutes spent on discharge:: 32 Patient Condition:: Stable Medical Necessity - Tobacco Use Smoking Status: Never smoker Tobacco Use: Non-smoker Meaningful Use Info Meaningful Use Diagnoses (Choose all that apply): None applicable Code Visit Inpatient E&M: 70330 Disch Hosp
--- NOTE | 2018-12-07 13:41 | CASEMGMT ---
RACHEL CM DC PHONE CALL DC DATE: 12/06/18 DC Disposition: home LACE/STRATA: 14/4 Attempted call. Message machine did not have personal identifier, no message left. Tristen KENNEDY RN ACM
== END 2018-12-04 17:20 | disposition home or self-care (01) | DRG 308 ==
LOC: ED 15:06 → PCU 18:12
PROVIDERS: Emergency Provider Emergency Medicine; Family Provider Internal Medicine; PCP Internal Medicine; Visit Provider Internal Medicine
DX: I48.92 Unspecified atrial flutter (principal); N18.6 End stage renal disease; I12.0 Hypertensive chronic kidney disease with stage 5 chronic kidney disease or end stage renal disease; N25.81 Secondary hyperparathyroidism of renal origin; Z68.41 Body mass index [BMI] 40.0-44.9, adult; E66.01 Morbid (severe) obesity due to excess calories; I48.0 Paroxysmal atrial fibrillation; H91.93 Unspecified hearing loss, bilateral; G47.33 Obstructive sleep apnea (adult) (pediatric); Z99.2 Dependence on renal dialysis; Z79.01 Long term (current) use of 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s; I05.0 Rheumatic mitral stenosis; D63.8 Anemia in other chronic diseases classified elsewhere
CPT/HCPCS: 36415; 71045; 80048; 84484; 85025; 90937; 92960; 93005; 99285; J7030; J7040; A4216; G0257

== ENCOUNTER 2018-12-08 21:36 | Emergency (ER) | payer MEDICARE, MEDICAID, SELFPAY ==
[2018-12-03 07:37] VITALS: BMI 42.3
[2018-12-08 21:37] VITALS: BP 136/79; PULSE 112; RESP 18; TEMP 36.7; O2SAT 100; BMI 41.3
[2018-12-09] MEDS: Morphine 4 MG/ML Syringe IV (01:19)
[2018-12-09] MEDS: Ondansetron 4 MG/2 ML Vial IV (01:19)
--- NOTE | 2018-12-09 01:58 | ED.VISSUMM ---
- ER Visit Summary Date of Service: 12/09/18 Chief Complaint: Headache History of Present Illness: The patient is a [address] Banda. He reports that he has a headache that began 3 days ago. Is an aching, stabbing pain in the right side of his neck in the occipital region. Is gradually gotten worse. Is 10 at 10 at worst 9-10 currently. Is worsened by movement of his head. Is not taking anything for pain. He denies any recent trauma. No fall, MVA, or change in activity. He denies any photophobia. No change in his vision. No numbness or weakness. Physical Examination: Vitals: Stable. Afebrile. General: Well-nourished and well-developed. Head: Normocephalic atraumatic. Neck: Supple, no lymphadenopathy. No JVD. Moderate tenderness palpation over the right paraspinous musculature in the right trapezius muscle. No vertebral tenderness. Cardiovascular: Regular rate and rhythm. No murmurs. Respiratory: No respiratory distress. Clear to auscultation bilaterally. Abdominal: Soft, nontender, nondistended, normal bowel sounds. No guarding, rebound, or peritoneal signs. Back: Nontender. Extremities: Nontender, no edema. Skin: Normal color, no rash. Neurologic: Alert and oriented ?3. Cranial nerves II through XII are intact. Normal strength and sensation. Psych: Normal affect. Test Results: CT brain shows no acute disease. Emergency Department Course and Treatment: Did patient was treated dose of morphine and Zofran IV. He is resting comfortably. He is very concerned that this is a clot in his neck. He states that he has had a DVT in the past. However, I discussed with him the fact that this is not a typical location for this and this there has been instrumentation and he is on Eliquis. He continues to be very concerned about this. Treatment Plan: Patient will be discharged to use warm compresses to the area. Use Tylenol for pain. He will be written for an outpatient right IJ Doppler. Instructed to follow-up his primary care physician in 3-5 days if not improving. Return to the emergency department for any worsening symptoms. Disposition: To home in improved and stable condition. Impression: 1. Cephalgia. 2. Neck pain, acute. 3. Coagulopathy on Eliquis. This note was generated with Jasmin dictation software. It may contain incorrect words, spelling, and punctuation that were not noted in review of the chart prior to signing ED Disposition - Plan for ED Patient: Disposition: Home or Assisted Living Instructions: ED Cephalgia Unspecified, ED Spasm Neck No Injury Referrals: Pawel Banda MD [Primary Care Provider] - 3-5 Days if not improving
[2018-12-09 02:07] VITALS: PULSE 99; RESP 22; O2SAT 97
--- NOTE | 2018-12-09 02:07 | ED.RN ---
THIS NURSE REVIEWED D/C INSTRUCTIONS WITH PT. PT VERBALIZED UNDERSTANDING OF INSTRUCTIONS. IV D/C. IV CATHETER INTACT. PT TOLERATED WELL. PT DENIES FURTHER NEEDS OR QUESTIONS AT THIS TIME.
--- NOTE | 2018-12-09 23:48 | CT_ITS ---
STUDY: CT BRAIN WITHOUT CONTRAST REASON FOR EXAM: Male, 38 years old. RT SIDED HEADACHE SINCE FRIDAY,DENIES INJURY HX:HTN,A-FIB,END STAGE RENAL DZ ON DIALYSIS RADIATION DOSAGE (If Supplied By Facility): CTDIvol = ( 44.99 ) mGy, DLP = ( 863.60 ) mGycm TECHNIQUE: Transaxial CT imaging of the brain was performed without administration of intravenous contrast material. Individualized dose optimization techniques were used for this CT. COMPARISON: None. FINDINGS: Normal soft tissue structures. Normal calvarium. Normal size ventricles and extra-axial spaces for the patient's age. Normal white matter tracts of the cerebral hemispheres. Normal basal ganglia and thalami. Normal brainstem. Normal cerebellum. There is no intracranial hemorrhage. There are no findings of an acute ischemic infarction. Normal visualized paranasal sinuses. CT/Brain/Head without Contrast IMPRESSION: Normal unenhanced CT scan of the brain. Electronically Signed: Sam Overton, at 1:27 EDT Tel , Service support ,
== END 2018-12-09 02:08 | disposition home or self-care (01) ==
LOC: ED 23:57
PROVIDERS: Emergency Provider Emergency Medicine; Family Provider Internal Medicine; PCP Internal Medicine
DX: R51 Headache (principal); M54.2 Cervicalgia; Z79.02 Long term (current) use of antithrombotics/antiplatelets; G47.33 Obstructive sleep apnea (adult) (pediatric); I48.91 Unspecified atrial fibrillation; I48.92 Unspecified atrial flutter; Z99.2 Dependence on renal dialysis; Z86.711 Personal history of pulmonary embolism
CPT/HCPCS: 70450; 93971; 96374; 96375; 99282; A4216; J2405

== ENCOUNTER → 2018-12-09 14:14 | Outpatient (CLI) | payer MEDICARE, MEDICAID, SELFPAY ==
[2018-12-08 21:37] VITALS: BMI 41.3
--- NOTE | 2018-12-09 14:27 | VDUE_ITS ---
Reason For Study: RT SIDED NECK PAIN Right Proximal Right jugular vein is spontaneous, widely patent, phasic, with no intraluminal echogenicity noted. Right subclavian vein is spontaneous, widely patent, phasic, with no intraluminal echogenicity noted. Interpretation Summary Patent and compressible right internal jugular and subclavian veins without evidence for venous thrombosis. Ordering Physician: Pool Christopher Referring Physician: Pawel Banda Performed By: Aleida Spivey RVT ?
== END ==
PROVIDERS: Family Provider Internal Medicine; PCP Internal Medicine; Referring Provider Emergency Medicine; Visit Provider Emergency Medicine
DX: M54.2 Cervicalgia (principal); Z86.718 Personal history of other venous thrombosis and embolism
CPT/HCPCS: 93971

== ENCOUNTER → 2018-12-15 11:18 | Outpatient (CLI) | payer MEDICARE, MEDICAID, SELFPAY ==
[2018-12-10 13:21] VITALS: BMI 41.3
--- NOTE | 2018-12-15 11:19 | US_ITS ---
STUDY: ABDOMINAL ULTRASOUND - RIGHT UPPER QUADRANT REASON FOR VISIT: Male, 38 years old. Abdominal pain. TECHNIQUE: Ultrasound evaluation of the right upper quadrant was performed with real-time and static panda-scale imaging. TECHNICAL QUALITY: Adequate. COMPARISON: CT scan 08/11/2018. FINDINGS: Liver: The liver measures 17.8 cm. There is increased echogenicity consistent with fatty infiltration. The bile ducts are within normal limits. There is hepatic color flow. The direction of portal flow is hepatopetal. There is no demonstrated mass lesion. Gallbladder: Normal distended gallbladder. The gallbladder wall measures 2.4 mm. There is a negative sonographic Azevedo's sign. There is no pericholecystic fluid. There are no gallstones. Common Bile Duct (C.B.D.): The common bile duct measures 4.2 mm. Pancreas: Normal size of the head, body and tail of the pancreas. There is normal echogenicity of the pancreas. There is no demonstrated pancreatic mass or cyst. Right Kidney: Normal size of the right kidney. The right kidney measures 9.0 cm. Markedly echogenic right kidney consistent with medical renal disease. The right cortex measures 1.2 cm. Multiple right renal cysts measuring as much as 3.3 cm. There is no right hydronephrosis. US/Abdomen Limited IMPRESSION: No acute abnormalities. Abnormal appearance of the right kidney consistent with medical renal disease and atrophy. Electronically Signed: Yosef Vinson MD at 15:41 EDT , Service support ,
== END ==
PROVIDERS: Family Provider Internal Medicine; PCP Internal Medicine; Referring Provider Internal Medicine; Visit Provider Internal Medicine
DX: R10.9 Unspecified abdominal pain (principal)
CPT/HCPCS: 76705

== ENCOUNTER 2018-12-17 13:32 | Emergency (ER) | payer MEDICARE, MEDICAID, SELFPAY ==
[2018-12-10 13:21] VITALS: BMI 41.3
[2018-12-17] VITALS (9 sets, daily range): BP systolic 104–140; BP diastolic 61–102; PULSE 97–147; RESP 18–26; TEMP 36.9; O2SAT 9–100; BMI 43.0
--- NOTE | 2018-12-17 13:37 | EKG12_ITS ---
Test Reason : CP Blood Pressure : / mmHG Vent. Rate : 146 BPM Atrial Rate : 146 BPM P-R Int : 144 ms QRS Dur : 076 ms QT Int : 294 ms P-R-T Axes : 000 193 038 degrees QTc Int : 458 ms Atrial flutter with 2:1 block Possible Inferior infarct , age undetermined Anterolateral infarct (cited on or before 03-DEC-2018) ,age undetermined Abnormal ECG Confirmed by SALMA STAHL, JACOBY ([id number]), scientific publications editor MARGARITO CHANDLER ([id number]) on 12/21/2018 11:43:21 AM Referred By: Pawel Banda Confirmed By:JACOBY MARSH MD
--- NOTE | 2018-12-17 13:40 | RAD_ITS ---
STUDY: X-RAY CHEST REASON FOR EXAM: Male, 38 years old. Chest pain TECHNIQUE: Single AP portable view of the chest. COMPARISON: Chest x-ray 12/02/2018 FINDINGS: There is persistent pulmonary vascular congestion and mild palmar interstitial thickening. There is no demonstrated pleural abnormality. Cardiac silhouette is stable. Normal mediastinum and michael. Normal visualized pulmonary arteries. Normal visualized aortic arch and descending thoracic aorta. Normal visualized thoracic spine. Normal visualized ribs, clavicles, and shoulders. There is no demonstrated abnormality of the visualized soft tissue structures of the upper abdomen. RAD/Chest 1 View (Portable) IMPRESSION: Mild pulmonary edema and pulmonary vascular congestion . Electronically Signed: Darius Stanley, at 14:14 EDT Tel , Service support ,
--- NOTE | 2018-12-17 13:43 | ED.DCSUM_ITS ---
History of Present Illness Chief Complaint: Chest Pain Detail of Chief Complaint: 10-minute episode last evening and started 1 hour ago Informant: Patient Onset: Today, Yesterday Timing: Continuous, Intermittent Quality: Pressure now sharp Location: Central chest Current Severity: Severe - Rates it 8-9 Maximum Severity: Severe Worsened by: Possibly activity Relieved by: Nothing Associated Symptoms: Shortness of breath Narrative: Patient is a 38-year-old gentleman with multiple medical problems which include heart disease, paroxysmal atrial fibrillation, hypertension, diabetes. He is on Eliquis. He reports episode of chest tightness that lasted 10 minutes last evening. He states he was sitting when the discomfort started. He denied any associated symptoms and no radiation of the discomfort. Approximately 2-1/2 hours ago he reports onset of pressure sensation which got worse 1 hour ago and is now a sharp pressure like discomfort mid chest with radiation to the right side with associated shortness of breath. He denies nausea or diaphoresis. He reports compliance with his medication. Prior similar symptoms: Yes Recent Illness/Hospitalization: Yes - Past Medical History (1) Atrial fibrillation and flutter Status: Acute (2) Hyperkalemia Status: Acute (3) Anemia of chronic disorder Status: Chronic (4) Chronic kidney disease-mineral and bone disorder Status: Chronic (5) ESRD (end stage renal disease) Status: Chronic Comment: Due to hypertension, On hemodialysis, TTS, followed by Dr. Goncalves (6) History of bacterial endocarditis Status: Chronic (7) 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 due to renal insufficiency Status: Chronic (8) Hypertension Status: Chronic (9) Mitral valve disease Status: Chronic (10) Mitral valve stenosis Status: Chronic (11) Morbidly obese Status: Chronic (12) Sleep apnea Status: Chronic (13) Pulmonary embolism Status: Suspected (14) HCAP (healthcare-associated pneumonia) Status: Resolved Past Medical History - Allergies and Home Meds Allergies/Adverse Reactions: Allergies No Known Allergies Allergy (Verified 12/10/18 13:18) Primary Care Physician: Pawel Banda MD [Primary Care Provider] - Prior records reviewed: Yes Surgical History: herniorrhaphy, - Lives: Alone Smoking Status: Unknown if ever smoked Alcohol: None - Family History Maternal Family History: Reports: Unknown - Patient is adopted and does not know his family history Review of Systems General: Reports: Malaise. Denies: Chills, Fever, Subjective, Sweats, Weight loss Eyes: Denies: Visual changes - bilaterally, Diplopia ENT: Denies: Rhinorrhea, Sore throat Cardiovascular: Reports: Chest pain, Palpitations, Heart racing Respiratory: Reports: Dyspnea, Dyspnea on exertion. Denies: Cough, Orthopnea, Paroxysmal nocturnal dyspnea Gastrointestinal: Denies: Abdominal pain, Nausea, Vomiting, Diarrhea, Melena, Hematochezia Genitourinary: Denies: Dysuria, Hematuria, Frequency Musculoskeletal: Denies: Myalgias, Arthralgias, Back pain, Extremity Pain Skin: Denies: Rash, Wounds Neurological: Denies: Headache, Weakness, Numbness Psych: Reports: Anxiety Allergy: Denies: Uticaria, Swelling of the mouth Physical Exam Vital Signs/Narrative: Vital Signs Temp Pulse Resp BP Pulse Ox 12/17/18 13:33 98.5 F 145 H 18 108/61 100 12/17/18 13:32 147 H 18 108/61 99 Inital Vital Signs reviewed: Yes General: Well nourished, Well developed, Obese, No Acute Distress Head: Normocephalic, Atraumatic Eyes: Perrl, EOMI. Negative for: Pale conjunctiva Abdomen: Soft, Nontender, Nondistended, Normal bowel sounds, No masses. Negative for: Hepatomegaly, Splenomegaly, Mass, Pulsatile mass Back: Nontender, Normal Inspection Extremities: Edema. Negative for: Nontender Skin: Normal color, No rash Neurological: Alert, Oriented x3, Cranial nerves II-XII grossly intact, Normal Strength, Normal Sensation Psychological: Normal affect, Normal Mood Diagnostic/Tx/Re-eval Chest X-Ray - ED: 1 View, Read by ED Physician, Normal, Heart, Mediastinum, Bony Structures, CHF, - - There is evidence of mild pulmonary congestion/heart failure/fluid overload state Impressions Chest X-Ray 12/17/18 13:40 IMPRESSION: Mild pulmonary edema and pulmonary vascular congestion . Electronically Signed: Darius Stanley, at 14:14 EDT Tel , Service support , 12/17/18 13:40 Chest 1 View (Portable) [RAD] Stat Laboratory Results 12/17/18 12/17/18 13:45 13:45 WBC 6.3 RBC 3.83 L Hgb 11.3 L Hct 37.2 L MCV 97.1 H MCH 29.5 MCHC 30.4 L RDW 14.8 H RDW Differential 50.5 H Plt Count 255 MPV 11.1 Immature Gran % (Auto) 0.300 Neut % (Auto) 61.2 Lymph % (Auto) 18.8 L Daggett % (Auto) 18.2 H Eos % (Auto) 1.0 Baso % (Auto) 0.5 Absolute Neuts (auto) 3.8 Absolute Lymphs (auto) 1.18 Total Counted Not Reportable Platelet Estimate ADEQUATE Plt Morphology Comment LARGE Sodium 138 Potassium 5.5 H Chloride 97 L Carbon Dioxide 27.0 Anion Gap 14 BUN 66 H Creatinine 14.90 H* Estim Creat Clear Calc 7.08 Est GFR (MDRD) Af Amer 5 L Est GFR (MDRD) Non-Af 4 L BUN/Creatinine Ratio 4.4 L Glucose 104 Calcium 8.4 L Troponin I < 0.015 - Rhythm Strip Rhythm Strip: Atrial flutter with ventricular rate varying between 141 and 150 Rate: 140 Ectopy: None - EKG Initial EKG Interpretation: Atrial Flutter - Ventricular rate 146 with decreased anterior force. SD interval is normal. QRS durations normal. Presume inferior ST-T wave changes are secondary to rate or superimposed T wave. EKG sent via [facility] to Dr. Main. He believes the form of versus ischemia. Plan is cardioversion and if there is persistent ST elevation will call STEMI otherwise will work him up and contact Dr. Moreno who is on-call for cardiology. Follow-up EKG Interpretation: Sinus Rhythm - Ventricular rate is 98. Decreased anterior force. SD interval is normal. QRS durations normal. [place] is to the right. - Medical Decision Making Patient presented with chest discomfort. Suspect secondary to a flutter with rapid ventricular rate. Patient's most recent Reveals clean coronaries. Suspect his symptoms are secondary to the a flutter. As previously documented case was initially discussed with Dr. Main because of the ST-T wave changes inferiorly. Since patient's workup is negative, and cardiac cath reveals no coronary disease plan is to discharge to home. Case was discussed Dr. Moreno. He concurs. He will see patient next week. - Critical Care Time Critical care time (excluding procedures): 30-74 minutes - 34 minutes excluding billable procedural time Procedures Procedure(s): Procedure: 1. Deep sedation using etomidate. Patient was informed of risk benefits using etomidate. He was informed the most common complication is mono clonic jerking activity and decreased respiration resulting in low oxygen level. He was given an opportunity to ask questions. None were asked. 2. Patient was informed that in light of his low blood pressure with chest pain and rapid heart rate secondary to atrial flutter the treatment of cho ice is cardioversion. He was explained what that would entail. He was given opportunity ask questions. He had none. Patient received a total of 10 mg of etomidate. He initially received 6 followed by additional 6 and 8. Once he was properly sedated he was successfully cardioverted using 200 J. Will obtain repeat EKG. Total time for deep sedation and cardioversion 7 minutes. ED Disposition - Plan for ED Patient: Disposition: Home or Assisted Living Diagnosis: Atrial flutter, paroxysmal, Other specified hypotension, Central chest pain, Chronic kidney disease-mineral and bone disorder, ESRD (end stage renal disease), Sleep apnea, Mitral valve disease, Hypertension Instructions: ED Paroxysmal Atrial Flutter Referrals: Pawel Banda MD [Primary Care Provider] - Nnamdi Moreno MD [STAFF PHYSICIAN] - 5-7 Days
[2018-12-17 13:57] LABS: Absolute Lymphocyte Count 1.18 X10^3/ul (0.83-4.51); Absolute Neutrophil Count 3.8 X10^3/uL (2.0-7.7); Basophil# 0.03 X10^3/uL; Basophil% 0.5 % (0-1); Differential Indicated SCAN CRITERIA MET; Eosinophil# 0.06 X10^3/uL; Hematocrit 37.2 % (40-54); Hemoglobin 11.3 g/dl (13.0-16.5); Lymphocyte # 1.18 X10^3/ul (4.0); Lymphocyte % 18.8 % (19-41); Mean Corp Hgb Conc 30.4 g/gl (32-36); Mean Corpuscular Hgb 29.5 pg (27.0-32.0); Mean Corpuscular Volume 97.1 fL (80-94); Mean Platelet Vol. 11.1 fl (6.2-12.0); Monocyte# 1.14 X10^3/uL; Monocyte% 18.2 % (0-10); Neutrophil # 3.84 X10^3/uL (2.7-7.7); Neutrophil % 61.2 % (47-70); POSITIVE COUNT NO; POSITIVE DIFFERENTIAL NO; POSITIVE MORPHOLOGY YES; Platelet Count 255 K/mm3 (150-450); RBC Distribution Width CV 14.8 % (11.6-14.6); RBC Distribution Width SD 50.5 fl (35.1-43.9); Red Blood Count 3.83 M/mm3 (4.6-6.2); White Blood Count 6.3 K/mm3 (4.4-11.0)
[2018-12-17] MEDS: Aspirin 81 MG TAB.CHEW 324 MG PO (14:07)
[2018-12-17 14:13] LABS: Anion Gap 14 (5-15); BUN 66 mg/dL (7-18); BUN/Creat Ratio 4.4 RATIO (10-20); Calcium,Total 8.4 mg/dL (8.5-10.1); Chloride 97 mmol/L (98-107); EST Glomerular Filtration Rate 4 mL/min (>60); Est Glom Filt Rate - Afr Amer 5 mL/min (>60); Estimated Creatinine Clearance 7.08 ml/min; Glucose 104 mg/dL (74-106); Platelet Estimate ADEQUATE (ADEQ); Platelet Morphology LARGE; Potassium 5.5 mmol/L (3.5-5.1); Sodium Level 138 mmol/L (136-145)
--- NOTE | 2018-12-17 14:47 | EKG12_ITS ---
Test Reason : POST-CARDIOVERSION Blood Pressure : / mmHG Vent. Rate : 098 BPM Atrial Rate : 098 BPM P-R Int : 162 ms QRS Dur : 070 ms QT Int : 340 ms P-R-T Axes : 068 147 046 degrees QTc Int : 434 ms Normal sinus rhythm Possible Left atrial enlargement Right axis deviation Anteroseptal infarct , age undetermined Abnormal ECG Confirmed by SALMA STAHL, JACOBY ([id number]), acquisitions editor MARGARITO CHANDLER ([id number]) on 12/21/2018 11:43:46 AM Referred By: Pawel Banda Confirmed By:JACOBY MARSH MD
[2018-12-17] MEDS: Acetaminophen 500 MG Tablet PO (15:44)
== END 2018-12-17 16:19 | disposition home or self-care (01) ==
PROVIDERS: Emergency Provider Emergency Medicine; Family Provider Internal Medicine; PCP Internal Medicine
DX: I48.92 Unspecified atrial flutter (principal); I95.89 Other hypotension; R07.9 Chest pain, unspecified; I12.0 Hypertensive chronic kidney disease with stage 5 chronic kidney disease or end stage renal disease; N18.6 End stage renal disease; G47.33 Obstructive sleep apnea (adult) (pediatric); E66.01 Morbid (severe) obesity due to excess calories; I05.9 Rheumatic mitral valve disease, unspecified; Z79.02 Long term (current) use of antithrombotics/antiplatelets
CPT/HCPCS: 71045; 80048; 84484; 85025; 92960; 93005; 99285; J7030; A4216

== ENCOUNTER → 2018-12-24 06:01 | Outpatient (CLI) | payer MEDICARE, MEDICAID, SELFPAY ==
[2018-12-17 13:33] VITALS: BMI 43.0
--- NOTE | 2018-12-24 06:36 | MRI_ITS ---
STUDY: MRI LEFT SHOULDER REASON FOR EXAM: Male, 38 years old. AVN. Left shoulder pain. Decreased range of motion. TECHNIQUE: Standardized fat and water weighted pulse sequences were obtained in all 3 orthogonal planes. COMPARISON: X-ray dated November 25, 2018. FINDINGS: Marked irregularity of the glenoid and humeral head (axial images 5 through 17 series 6) with additional intra-articular anterior bone fragment measuring approximately 3.6 m (sagittal image 5 series 9). Humeral head sits posterior relative to the expected region of the glenohumeral articulation. Moderate acromioclavicular joint arthrosis. No acute fracture lines. No acute avascular necrosis. Mild intracapsular long biceps tendinosis. Biceps labral anchor appears grossly intact (axial image 9 series 6). Medial subluxation of the intracapsular long biceps tendon. Extensive labral tearing and degeneration. Joint capsule appears grossly intact. Decreased fat at the rotator cuff interval. Moderate subscapularis tendinosis with partial tear of the deep fibers. Moderate supraspinatus tendinosis with with partial thickness linear tear (coronal images 7 and 8 series 8). Moderate infraspinatus tendinosis without discrete tear. Normal teres minor tendon. No significant muscular atrophy. Moderate volume glenohumeral joint effusion. Mild subacromial subdeltoid bursal fluid. Intact coracohumeral and coracoacromial ligaments. Normal deltoid muscle. Normal trapezius muscle. MRI/Upper Ext Joint Only(Routine) IMPRESSION: Markedly irregular glenoid and humeral head with additional intra-articular bone fragment and posterior subluxation (advanced collapse avascular necrosis versus severe posttraumatic changes) Extensive rotator cuff tendinosis with partial supraspinatus and subscapularis tendon tears Intracapsular long biceps tendinosis with medial subluxation Extensive labral tearing and degeneration Moderate volume glenohumeral joint effusion and mild subacromial subdeltoid bursal fluid Electronically Signed: Piero Aden DO at 15:52 EDT Tel , Service support ,
== END ==
PROVIDERS: Family Provider Internal Medicine; PCP Internal Medicine; Referring Provider Orthopaedic Surgery; Visit Provider Orthopaedic Surgery
DX: M25.512 Pain in left shoulder (principal); G89.29 Other chronic pain; M87.00 Idiopathic aseptic necrosis of unspecified bone
CPT/HCPCS: 73221

== ENCOUNTER 2019-02-04 21:40 | Observation (INO) | payer MEDICARE, SELFPAY ==
[2019-01-07 14:25] VITALS: BMI 43.2
[2019-02-04 21:42] VITALS: BP 131/70; PULSE 125; RESP 18; TEMP 36.9; O2SAT 95; BMI 42.9
--- NOTE | 2019-02-04 22:10 | CT_ITS ---
STUDY: CT ABDOMEN AND PELVIS WITHOUT CONTRAST REASON FOR EXAM: Male, 38 years old. Back pain RADIATION DOSAGE (If Supplied By Facility): CTDIvol = ( 24.04 ) mGy, DLP = ( 1575.44 ) mGycm TECHNIQUE: Transaxial images were obtained from the dome of the diaphragm to the symphysis pubis without oral contrast, and without intravenous contrast. Sagittal and coronal images were reconstructed. Individualized dose optimization techniques were used for this CT. COMPARISON: August 11, 2018. FINDINGS: Evaluation is limited by lack of IV and oral contrast. Atelectasis/scarring within the lungs. Mitral annular calcifications. Normal unenhanced liver. Normal unenhanced gallbladder and extrahepatic biliary system. Normal unenhanced spleen. Normal unenhanced pancreas. Normal unenhanced bilateral adrenal glands. 2 mm nonobstructing bilateral nephrolithiasis. There is multiple low-attenuation structures within the bilateral kidneys some of which are too small to characterize by CT criteria. The largest measuring 3 cm on the right likely representing a cyst. Slightly structures appears slightly hyperdense and may represent proteinaceous/hyperdense cyst. Valuations limited by lack of IV contrast. These appear relatively similar to prior study. Again no hydronephrosis identified. Normal visualized stomach. Normal small intestine. There are multiple colonic diverticula consistent with diverticulosis. The appendix is visualized and appears normal. There is diffuse atherosclerotic calcification of the abdominal aorta, without a demonstrated aneurysm. Cannot evaluate for dissection due to the lack of IV contrast material. Normal retroperitoneum. Bladder is decompressed limiting its evaluation. There is been advancement of the left femoral catheter with the tip now sitting in the region of the IVC at the entrance of the hepatic veins. There is extensive collateralization of the vessels within the abdominal wall soft tissues. There are diffuse degenerative changes of the visualized lumbar spine. Similar appearance to the lytic lesion within the spinous process of L4. T12 limbus vertebra. Similar appearance to the lytic lesion involving the spinous process of L2 and L3. Scoliotic curvature to the spine. Similar appearance to the lytic region within the bilateral sacroiliac joints and sclerotic appearance. There is again noted a large lesion involving the right superior pubic ramus with extension somewhat into the left ramus with extensive calcifications. This appears increased in size and increased calcifications. Extends superiorly into the right rectus abdominis muscle and inferiorly into the medial right thigh muscles. Intimately associated with the prostate and bladder. Evaluation is limited by lack of contrast material. Bone the anterior aspect of the right acetabulum. CT/Abdomen/Pelvis without Cont IMPRESSION: Nonobstructing punctate nephrolithiasis. Bilateral low-attenuation structures within the kidneys. Some hyperdense regions which may represent hyperdense/proteinaceous cysts. These appear relatively similar to prior exam. Ultrasound could be performed to further evaluate on a nonemergent basis. Diverticulosis without definitive CT evidence for diverticulitis. Kidneys appear slightly atrophic. There is interval increase in size of the masslike structure extending through the medial right thigh muscles into the right rectus abdominis muscle with involvement of the pubic rami on the right and acetabulum. This appears increased in size as well as the amount of calcifications. This may represent tumoral calcinosis or myositis ossificans however malignancy cannot be excluded. Similar appearance to the lytic lesions within the sacroiliac joints and lower lumbar spine. Given patient's symptomology of hematuria evaluation is limited by lack of IV contrast. If there is continuing clinical concern consider correlation with CT hematuria protocol with IV contrast material. Electronically Signed: Kannan Greenberg, at 23:48 EDT Tel , Service support ,
[2019-02-04] MEDS: Ondansetron 4 MG/2 ML Vial IV (22:43)
[2019-02-04] MEDS: Morphine 4 MG/ML Syringe IV ×2 (22:43→23:37)
[2019-02-04 22:44] LABS: Absolute Lymphocyte Count 1.28 X10^3/ul (0.83-4.51); Absolute Neutrophil Count 2.9 X10^3/uL (2.0-7.7); Basophil# 0.01 X10^3/uL; Basophil% 0.2 % (0-1); Eosinophil# 0.11 X10^3/uL; Eosinophils% 2.1 % (0-5); Hematocrit 33.7 % (40-54); Hemoglobin 10.4 g/dl (13.0-16.5); Lymphocyte # 1.28 X10^3/ul (4.0); Lymphocyte % 24.1 % (19-41); Mean Corp Hgb Conc 30.9 g/gl (32-36); Mean Corpuscular Hgb 29.1 pg (27.0-32.0); Mean Corpuscular Volume 94.4 fL (80-94); Mean Platelet Vol. 11.7 fl (6.2-12.0); Monocyte% 18.8 % (0-10); Neutrophil % 54.6 % (47-70); Platelet Count 198 K/mm3 (150-450); RBC Distribution Width CV 14.8 % (11.6-14.6); RBC Distribution Width SD 48.2 fl (35.1-43.9); Red Blood Count 3.57 M/mm3 (4.6-6.2); White Blood Count 5.3 K/mm3 (4.4-11.0)
[2019-02-04 22:45] LABS: POSITIVE COUNT NO; POSITIVE DIFFERENTIAL NO; POSITIVE MORPHOLOGY NO
--- NOTE | 2019-02-04 22:59 | ED.VISSUMM ---
- ER Visit Summary Date of Service: 02/04/19 Chief Complaint: [Back pain] History of Present Illness: The patient is a 38 M [presents to the emergency department complaint of back pain for last 2 days. Patient describes the pain in his central low back. He denies any injury. He also states that today's been having hematuria and dysuria with some urinary frequency which is unusual for him and that he is on dialysis and typically does not make much urine. Patient denies any fevers. Patient has history of hypertension, sleep apnea, end-stage renal disease, A. fib, and hypertension. Patient is on Eliquis and has been compliant.] Physical Examination: [HEENT-PERRLA, EOMI. Cranial nerves II through XII grossly intact. TMs clear. Mucous membranes moist. No adenopathy. Cardiovascular-regular rate and rhythm without murmur or ectopy Lungs-clear to auscultation, chest wall stable without crepitus or subcu emphysema Abdomen-normoactive bowel sounds, soft, nontender, no rebound or rigidity, no peritoneal signs. Back exam-patient has tenderness palpation over the lower lumbar spine that seems to reproduce his pain. There is no erythema or warmth noted. There is no ecchymosis or bruising. Patient has negative straight leg raises. Deep tendon reflexes are plus 2 out of 4 bilaterally at the patella and Achilles. Normal L5 extension. Extremities-intact ?4, normal range of motion, normal pulses, atraumatic] Test Results: [CBC with differential obtained showed a white count of 5.3, hemoglobin 10.4, hematocrit 34, placed 198.] CT scan of the abdomen pelvis without contrast was ordered and showed interval increase in size of masslike structure extending through the medial right thigh muscles into the right rectus abdominis muscle with involvement of the pubic rami on the right and acetabulum. This appears increased in size as well as the amount of calcification. This may represent tumoral calcinosis or myositis ossificans however malignancy cannot be excluded. Similar appearance lytic lesions within the sacroiliac joints and lumbar spine given patient symptomatology hematuria evaluation is limited by lack of IV contrast. Urinalysis is pending. Emergency Department Course and Treatment: [Patient was medicated with morphine and Zofran. Patient continued complaint of pain and was given another dose of morphine. Patient continues to complain of back pain.] Treatment Plan: [Admit for pain management and further evaluation of enlarging mass of pelvis and spine lytic lesions.] Disposition: [Admit] Impression: [Intractable back pain Pelvic mass Lytic lesions of lumbar spine Hematuria] This note was generated with [employer] dictation software. It may contain incorrect words, spelling, and punctuation that were not noted in review of the chart prior to signing ED Disposition - Plan for ED Patient: Referrals: Pawel Banda MD [Primary Care Provider] -
--- NOTE | 2019-02-04 23:09 | ED.RN ---
janel called to report Ct 12.6, notified dr. Restrepo.
[2019-02-04 23:10] LABS: Anion Gap 10 (5-15); BUN 56 mg/dL (7-18); BUN/Creat Ratio 4.4 RATIO (10-20); Calcium,Total 8.3 mg/dL (8.5-10.1); Chloride 98 mmol/L (98-107); EST Glomerular Filtration Rate 5 mL/min (>60); Est Glom Filt Rate - Afr Amer 6 mL/min (>60); Estimated Creatinine Clearance 8.37 ml/min; Glucose 91 mg/dL (74-106); Potassium 4.8 mmol/L (3.5-5.1); Sodium Level 135 mmol/L (136-145)
[2019-02-04 23:35] VITALS: BP 118/78; PULSE 90; RESP 18
[2019-02-05] VITALS (9 sets, daily range): BP systolic 98–140; BP diastolic 49–99; PULSE 75–111; RESP 16–18; TEMP 2.5–37.1; O2SAT 94–100; BMI 42.6
--- NOTE | 2019-02-05 01:51 | HP.PCM_ITS ---
Problem List (1) Intractable low back pain Status: Acute (2) Anemia of chronic disorder Status: Chronic (3) Hypertension Status: Chronic Qualifiers: Hypertension type: essential hypertension Qualified Code(s): I10 - Essential (primary) hypertension (4) ESRD (end stage renal disease) Status: Chronic Comment: Due to hypertension, On hemodialysis, TTS, followed by Dr. Goncalves (5) Morbidly obese Status: Chronic (6) Sleep apnea Status: Chronic Qualifiers: Sleep apnea type: unspecified type Qualified Code(s): G47.30 - Sleep apnea, unspecified (7) 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 due to renal insufficiency Status: Chronic (8) Pelvic mass Status: Chronic (9) Chronic pelvic pain in male Status: Chronic (10) PAF (paroxysmal atrial fibrillation) Status: Chronic History of Present Illness Date of Admission: 02/05/19 Chief Complaint: Acute on chronic lumbar back pain x 2 days The patient is a 38 y/o M w/ PMHx: ESRD on HD, HTN, HLD, PAF on anticoagulation, Morbid Obesity, YEIMY on CPAP, AOCD, Known Pelvic Mass with ? [facility] main evaluation versus [facility] (poor historian) evaluation and noted that it was not cancerous with history of ongoing intermittent hematuria and lumbar back pain x 2 years who presents to the [facility] ED on 02/05/19 with history of worsened lumbar back pain above baseline, no change in bowel or bladder function, no paresthesias or weakness. In the ED work-up included T 98.5, heart rate initially 125 with improvement 90, BP 131/70, respiratory rate 18, 95% on room air, CBC with WBC 5.3, hemoglobin 10.4, platelet 198 without left shift, BMP with sodium 135, BUN/creatinine 56/12.60 CT abdomen and pelvis obtained with a nonobstructing punctate nephrolithiasis, bilateral low-attenuation structures within the kidneys, some hyperdense regions possibly new accounts banking representative of hyperdense or proteinaceous cyst, relatively similar to prior, diverticulosis without definitive CT evidence for diverticulitis, slightly atrophic appearing kidneys, interval increase in the size of the masslike structure extending through the medial right thigh muscles into the right rectus abdominis muscle with involvement of the pubic rami on the right and acetabulum, appears increased in size as well as the amount of calcifications possibly new accounts banking representative of a tumoral calcinosis or myositis ossificans, similar appearance to the lytic lesions within the sacroiliac joints and lower lumbar spine. The patient had been administered Zofran, morphine 4 mg IV x2. Past Medical History Past Medical History (Chronic Problems): Chronic Problems (Last Reviewed 01/07/19 @ 14:02 by Misa Robertson) PAF (paroxysmal atrial fibrillation) (Chronic) Left shoulder pain (Chronic) Anemia of chronic disorder (Chronic) History of bacterial endocarditis (Chronic) Hypertension (Chronic) ESRD (end stage renal disease) (Chronic) Due to hypertension, On hemodialysis, TTS, followed by Dr. 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) Mitral valve disease (Chronic) Mitral valve stenosis (Chronic) Sleep apnea (Chronic) Hearing loss (Chronic) in both ears Medical History: Medical History (Last Reviewed 01/07/19 @ 14:02 by Misa Robertson) Mitral valve stenosis (Chronic) I05.0 Sleep apnea (Chronic) G47.30 History of blood clots (Resolved) Z86.718 fistula developed a clot and had to be surgically removed Hearing loss (Chronic) H91.90 in both ears Afib I48.91 ESRD (end stage renal disease) N18.6 Anemia of chronic disease D63.8 HTN (hypertension) I10 Allergies No Known Allergies Allergy (Verified 02/04/19 21:41) Home Medications: Ambulatory Orders Medication Instructions Recorded cinacalcet 60 mg tablet 60 mg PO MOWEFR 10/10/17 Apixaban [Eliquis] 2.5 mg PO BID 12/02/18 flecainide 100 mg tablet 100 mg PO Q12H #60 tab 12/25/18 Colchicine 0.6 mg PO TIDCM 02/05/19 Metoprolol Tartrate [Lopressor 50 mg PO BID 02/05/19 (beta zbigniew)] Surgical History: herniorrhaphy, - - aVF x2, catheter placements, right upper extremity aneurysm removed. Psychiatric History: No pertinent psych hx Lives: Spouse/ Significant Other Smoking Status: Never smoker Tobacco Use: Non-smoker Alcohol: None Drugs: None - *Family History Maternal Family History: Family History (Last Updated 01/07/19 @ 14:03 by Misa Robertson) Other Adopted History Items: - - Patient was adopted and does not know his maternal or paternal family history. Paternal Family History: Family History (Last Updated 01/07/19 @ 14:03 by Misa Robertson) Other Adopted History Items: - - Patient was adopted and does not know his maternal or paternal family history. Review of Systems Constitutional: Reports: Weakness, Fatigue. Denies: Chills, Fever, Weight Change HEENT: Denies: Head Aches, Sinus Congestion, Sinus Drainage Cardiovascular: Denies: Chest Pain, Palpitations Respiratory: Denies: Cough, Shortness of breath at rest, Sputum production Gastrointestinal: Reports: - - Chronic pelvic pain.. Denies: Abdominal Pain, Nausea, Vomiting Genitourinary: Reports: Hematuria - Intermittent hematuria x2 years.. Denies: Dysuria Musculoskeletal: Reports: Back Pain, Joint Pain. Denies: Joint Tenderness Skin: Denies: Rash, Wounds Neurological: Denies: Numbness, Tingling, Focal weakness Psychiatric: Denies: Anxiety, Depression, Homicidal Ideations, Suicidal Ideations Hematologic/ Lymphatic: Reports: Anemia, Easy Bruising, Easy Bleeding VTE Information - Inpt Only VTE Present on Admission: No VTE Mechan Device Prophylaxis: SCD's VTE Pharm Prophylaxis ordered?: No Reason prophylaxis not ordered:: Treatment Not Indicated - On anticoagulation. Patient Problems: Active and Suspected Problems (Last Reviewed 01/07/19 @ 14:02 by Misa Robertson) Intractable low back pain (Acute) Subjective: Seated upright in ED bed, no acute distress, notes pain mildly improved since r ecent morphine administration. Patient is a very poor historian and cannot relate anything regarding his pelvic mass and where he was evaluated but notes that he did have a significant evaluation and it was felt to be noncancerous. Also patient notes that he was supposed to follow with urology for ongoing intermittent hematuria but has yet to do so. Objective: Physical Examination: General: awake, alert, oriented x 3 and cooperative, seated upright in the ED bed, mildly fatigued appearance, no acute distress, back discomfort has improved since morphine ED administration. Skin: normal color, turgor, no icterus, cyanosis. HEENT: AT/NC, EOMI, PERRLA, mildly dry MM, no carotid bruits or JVD noted; however thickened neck makes examination difficult. Lungs: CTA bilaterally, moderate effort, moderate decrease BL bases, no rales, ronchi or wheezing. Heart: Regular rate and rhythm; no gallop, rub audible. Abdomen: soft, overly obese, mild generalized discomfort with palpation of the abdomen, no rebound or guarding, ND, normal BS, no HSM; however, habitus makes examination difficult. Extremities: no cyanosis, clubbing, very mild nonpitting bilateral ankle edema. Neurological: patient awake, alert, oriented x 3; cognitive function intact; pupils equally reactive to light and accomodation; cranial nerves II-XII grossly normal, moving all 4 extremities although limited secondary to noted lumbar discomfort with movement, strength moderately globally decreased accordingly. Psychiatric: affect appears fatigued, no acute evidence of depressive or anxiety feelings. - Physical Exam Vital Signs Temp Pulse Resp BP Pulse Ox 98.5 F 90 18 135/91 H 95 02/04/19 21:42 02/04/19 23:35 02/05/19 01:41 02/05/19 01:41 02/04/19 21:42 Oxygen Delivery Method Room Air Weight: 299 lb 6.204 oz Body Mass Index (BMI) 42.9 Laboratory Tests Past 24 Hrs 02/04/19 02/04/19 22:25 22:25 WBC 5.3 RBC 3.57 L Hgb 10.4 L Hct 33.7 L MCV 94.4 H MCH 29.1 MCHC 30.9 L RDW 14.8 H RDW Differential 48.2 H Plt Count 198 MPV 11.7 Immature Gran % (Auto) 0.200 Neut % (Auto) 54.6 Lymph % (Auto) 24.1 Noble % (Auto) 18.8 H Eos % (Auto) 2.1 Baso % (Auto) 0.2 Absolute Neuts (auto) 2.9 Absolute Lymphs (auto) 1.28 Total Counted Not Reportable Sodium 135 L Potassium 4.8 Chloride 98 Carbon Dioxide 27.0 Anion Gap 10 BUN 56 H Creatinine 12.60 H* Estim Creat Clear Calc 8.37 Est GFR (MDRD) Af Amer 6 L Est GFR (MDRD) Non-Af 5 L BUN/Creatinine Ratio 4.4 L Glucose 91 Calcium 8.3 L Assessment/Plan All Active Problems (Last Reviewed 01/07/19 @ 14:02 by Misa Robertson) Intractable low back pain (Acute) Abdominal pain (Acute) Acute viral bronchitis (Resolved) Chest pain, musculoskeletal (Resolved) Chest pain (Resolved) Junctional tachycardia (Resolved) Dyspnea (Resolved) Clotted dialysis access (Resolved) HCAP (healthcare-associated pneumonia) (Resolved) Chest pain at rest (Resolved) Hyperkalemia (Acute) Atrial fibrillation with RVR (Acute) Atrial fibrillation and flutter (Acute) History of blood clots (Resolved) The patient is a 38 y/o M w/ PMHx: ESRD on HD, HTN, HLD, PAF on anticoagulation, Morbid Obesity, YEIMY on CPAP, AOCD, Known Pelvic Mass with ? [facility] main evaluation versus [facility] (poor historian) evaluation and noted that it was not cancerous with history of ongoing intermittent hematuria and lumbar back pain x 2 years who presents to the [facility] ED on 02/05/19 with history of worsened lumbar back pain above baseline, no change in bowel or bladder function, no paresthesias or weakness. (1) Acute on Chronic Intractable Back Pain w/ Enlarging Pelvic Mass w/ Lytic Le sions: ED work-up included T 98.5, heart rate initially 125 with improvement 90, BP 131/70, respiratory rate 18, 95% on room air, CBC with WBC 5.3, hemoglobin 10.4, platelet 198 without left shift, BMP with sodium 135, BUN/creatinine 56/12.60 CT abdomen and pelvis obtained with a nonobstructing punctate nephrolithiasis, bilateral low-attenuation structures within the kidneys, some hyperdense regions possibly new accounts banking representative of hyperdense or proteinaceous cyst, relatively similar to prior, diverticulosis without definitive CT evidence for diverticulitis, slightly atrophic appearing kidneys, interval increase in the size of the masslike structure extending through the medial right thigh muscles into the right rectus abdominis muscle with involvement of the pubic rami on the right and acetabulum, appears increased in size as well as the amount of calcifications possibly new accounts banking representative of a tumoral calcinosis or myositis ossificans, similar appearance to the lytic lesions within the sacroiliac joints and lower lumbar spine. Will admit to [facility], maintain on fall precautions, frequent positioning, po/IV pain regimen, anti-emetics, bowel regimen. Will consult PT and OT for evaluation. Requested records to ascertain prior evaluation of pelvic mass. (2) Intermittent hematuria: From most recent PCP note patient has been encouraged to follow-up with urology and has yet to do so, given presentation, known pelvic mass will request urology evaluation while inpatient. (3) ESRD: On HD, will consult Nephrology, continue home routine HD regimen. (4) PAF: Continue home regimen flecainide, metoprolol, Eliquis. (5) Morbid Obesity: Weight loss and lifestyle changes encouraged, nutrition consulted. (6) Hypertension: Continue home regimen including metoprolol, PRN hydralazine. (7) Hyperlipidemia: Not on regimen, defer to outpatient. (8) YEIMY: Continue home CPAP regimen. (9) AOCD: Admission Hgb 10.4, stable, trend. (10) DVT Prophylaxis: SCDs, continue home eliquis regimen. Code Visit OBSV E&M: [id number] Initial observation care L3
[2019-02-05] MEDS: HYDROcodone Bitartrate/Apap 5/325 Tablet PO ×4 (02:51→23:46)
[2019-02-05 05:42] LABS: Absolute Lymphocyte Count 1.21 X10^3/ul (0.83-4.51); Absolute Neutrophil Count 2.3 X10^3/uL (2.0-7.7); Basophil# 0.02 X10^3/uL; Basophil% 0.4 % (0-1); Eosinophil# 0.12 X10^3/uL; Eosinophils% 2.6 % (0-5); Hematocrit 30.9 % (40-54); Hemoglobin 9.6 g/dl (13.0-16.5); Lymphocyte # 1.21 X10^3/ul (4.0); Lymphocyte % 25.7 % (19-41); Mean Corp Hgb Conc 31.1 g/gl (32-36); Mean Corpuscular Hgb 29.2 pg (27.0-32.0); Mean Corpuscular Volume 93.9 fL (80-94); Monocyte# 1.03 X10^3/uL; Monocyte% 21.9 % (0-10); Neutrophil # 2.31 X10^3/uL (2.7-7.7); Neutrophil % 49.2 % (47-70); Platelet Count 203 K/mm3 (150-450); RBC Distribution Width SD 50.8 fl (35.1-43.9); Red Blood Count 3.29 M/mm3 (4.6-6.2); White Blood Count 4.7 K/mm3 (4.4-11.0)
[2019-02-05 05:43] LABS: POSITIVE COUNT NO; POSITIVE DIFFERENTIAL NO; POSITIVE MORPHOLOGY NO
[2019-02-05 06:09] LABS: ALB/GLOB Ratio 0.6 RATIO (0.9-2.4); AST(SGOT) 8 U/L (15-37); Alanine Aminotransfer ALT/SGPT 8 U/L (16-61); Alkaline Phosphatase 66 U/L (45-117); Anion Gap 11 (5-15); BUN 60 mg/dL (7-18); BUN/Creat Ratio 4.5 RATIO (10-20); Calcium,Total 8.3 mg/dL (8.5-10.1); Chloride 98 mmol/L (98-107); EST Glomerular Filtration Rate 5 mL/min (>60); Est Glom Filt Rate - Afr Amer 5 mL/min (>60); Estimated Creatinine Clearance 7.87 ml/min; Glucose 103 mg/dL (74-106); Potassium 5.3 mmol/L (3.5-5.1); Sodium Level 138 mmol/L (136-145)
--- NOTE | 2019-02-05 08:20 | PCA ---
obtained consent from patient to request medical records from [facility]
--- NOTE | 2019-02-05 08:47 | CPS ---
pt did not bring his own CPAP, does not want to use [facility] machine, wants to just wear oxygen
[2019-02-05] MEDS: SEVELAMER CARBONATE 800 MG TABLET PO ×2 (12:01→17:46)
--- NOTE | 2019-02-05 13:58 | CON.PCM_ITS ---
Problem List (1) ESRD (end stage renal disease) Status: Chronic Comment: Due to hypertension, On hemodialysis, TTS, followed by Dr. Goncalves Consultation - Renal 02/05/19 PCP/ Referring MD: Requesting physician: Dr Smith Primary care physician: Pawel Banda MD Reason for Consultation:: ESRD - History of Present Illness History of Present Illness: The patient is a 38 year old M well-known to us. And ESRD on dialysis, Friday schedule. Last dialysis was Friday. Multiple access related issues. Currently has left femoral tunneled dialysis catheter which is suboptimal. Sees vascular surgery at [facility]. Presented with low back pain. Had a CT scan of the abdomen which showed multiple lytic lesions in the spine, mass around the right pubic bone area. Currently in bed. Denies any complaints. Says gets pain only when he moves around. - Allergies Allergies: Allergies No Known Allergies Allergy (Verified 02/04/19 21:41) - Current Medications Current Medications: Current Medications Acetaminophen (Tylenol) 650 mg PO Q6H PRN PRN PRN Reason: Non-cardiac pain (mod-severe) Hydrocodone Bitart/Acetaminophen ([place] 5mg-325mg) 1 - 2 tablet PO Q6H PRN PRN PRN Reason: MOD-SEVERE PAIN (4-07/08) Last Admin: 02/05/19 08:51 Dose: 2 tablet Al Hydroxide/Mg Hydroxide (Mylanta Ii) 15 - 30 ml PO Q4H PRN PRN PRN Reason: INDIGESTION Albuterol Sulfate (Ventolin Aerosols) 2.5 mg INHALATION Q2H PRN PRN PRN Reason: dyspnea, wheezing Apixaban (Eliquis) 2.5 mg PO BID [facility]Y Cinacalcet (Sensipar) 60 mg PO MoWeFr@1000 MACY Dextrose (D50w Syringe) 0 gm IV X1 PRN; Protocol PRN Reason: Hypoglycemia Ferrous Sulfate (Ferrous Sulfate) 325 mg PO BIDCM MACY Flecainide Acetate (Tambocor) 100 mg PO Q12 MACY Glucagon () 1 mg IM .X1 PRN PRN Reason: Hypoglycemia Hydralazine HCl (Apresoline Iv) 10 mg IV Q4H PRN PRN PRN Reason: SBP > 160 Melatonin (Melatonin) 3 mg PO QHS PRN PRN PRN Reason: INSOMNIA Metoprolol Tartrate (Lopressor (Beta Yossi)) 50 mg PO BID [facility] Morphine Sulfate () 1 - 2 mg IV Q4H PRN PRN PRN Reason: PAIN Ondansetron HCl (Zofran) 4 mg IV Q8H PRN PRN PRN Reason: NAUSEA/VOMITING Sevelamer Carbonate (Renvela) 800 mg PO TIDCM [facility] Last Admin: 02/05/19 12:01 Dose: 800 mg - Past Medical History Past Medical History (Chronic Problems): Chronic Problems (Last Reviewed 01/07/19 @ 14:02 by Misa Robertson) PAF (paroxysmal atrial fibrillation) (Chronic) Left shoulder pain (Chronic) Anemia of chronic disorder (Chronic) History of bacterial endocarditis (Chronic) Hypertension (Chronic) ESRD (end stage renal disease) (Chronic) Due to hypertension, On hemodialysis, TTS, followed by Dr. 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 - Social History Smoking Status: Never smoker Alcohol: None Drugs: None - Family History Paternal Family History: Family History (Last Updated 01/07/19 @ 14:03 by Misa Robertson) Other Adopted History Items: - - Patient was adopted and does not know his maternal or paternal family history. Maternal Family History: Family History (Last Updated 01/07/19 @ 14:03 by Misa Robertson) Other Adopted History Items: - - Patient was adopted and does not know his maternal or paternal family history. Review of Systems Constitutional: Denies: Chills, Fever, Weight Change HEENT: Denies: Head Aches, Sinus Congestion, Sinus Drainage Cardiovascular: Denies: Chest Pain, Palpitations Respiratory: Denies: Cough, Shortness of breath at rest, Sputum production Gastrointestinal: Denies: Abdominal Pain, Nausea, Vomiting Genitourinary: Denies: Dysuria Musculoskeletal: Denies: Joint Pain, Joint Tenderness Skin: Denies: Rash, Wounds Neurological: Denies: Numbness, Tingling, Focal weakness Psychiatric: Denies: Anxiety, Depression, Homicidal Ideations, Suicidal Ideations Hematologic/ Lymphatic: Denies: Easy Bruising, Easy Bleeding Patient Problems: Active and Suspected Problems (Last Reviewed 01/07/19 @ 14:02 by Misa Robertson) Intractable low back pain (Acute) - Physical Exam General: Alert, Oriented x3, Cooperative HEENT: Atraumatic, PERRLA, EOMI, Normocephalic Neck: Supple, No JVD, Negative Carotid Bruits Lungs: Clear to auscultation, Normal air movement Cardiovascular: Regular rate, No murmurs Abdomen: Bowel Sounds Present, Soft, Non Tender Extremities: No edema, Capillary Refill Less than 3 Seconds Skin: No rashes, No breakdown Musculoskeletal: No Tenderness to Palpation of Joints or Extremities Neurological: Cranial nerves II-XII grossly intact Psych/Mental Status: Normal Affect, Appropriate Vital Signs Temp Pulse Resp BP Pulse Ox 97.6 F L 75 18 140/99 H 100 02/05/19 08:36 02/05/19 08:36 02/05/19 08:36 02/05/19 08:36 02/05/19 08:36 Oxygen Flow Rate (L/min) 2 Oxygen Delivery Method Nasal Cannula Weight: 134.8 kg Body Mass Index (BMI) 42.6 Intake and Output for Last 24 Hours 02/03/19 02/04/19 02/05/19 23:59 23:59 23:59 Intake Total 500 / 500 Output Total 0 / 0 Balance 500 / 500 Laboratory Tests Past 24 Hrs 02/04/19 02/04/19 02/05/19 22:25 22:25 05:15 WBC 5.3 4.7 RBC 3.57 L 3.29 L Hgb 10.4 L 9.6 L Hct 33.7 L 30.9 L MCV 94.4 H 93.9 MCH 29.1 29.2 MCHC 30.9 L 31.1 L RDW 14.8 H 15.0 H RDW Differential 48.2 H 50.8 H Plt Count 198 203 MPV 11.7 11.0 Immature Gran % (Auto) 0.200 0.200 Neut % (Auto) 54.6 49.2 Lymph % (Auto) 24.1 25.7 [place] % (Auto) 18.8 H 21.9 H Eos % (Auto) 2.1 2.6 Baso % (Auto) 0.2 0.4 Absolute Neuts (auto) 2.9 2.3 Absolute Lymphs (auto) 1.28 1.21 Total Counted Not Reportable Not Reportable Sodium 135 L Potassium 4.8 Chloride 98 Carbon Dioxide 27.0 Anion Gap 10 BUN 56 H Creatinine 12.60 H* Estim Creat Clear Calc 8.37 Est GFR (MDRD) Af Amer 6 L Est GFR (MDRD) Non-Af 5 L BUN/Creatinine Ratio 4.4 L Glucose 91 Calcium 8.3 L Total Bilirubin AST ALT Alkaline Phosphatase Total Protein Albumin Globulin Albumin/Globulin Ratio 02/05/19 05:15 WBC RBC Hgb Hct MCV MCH MCHC RDW RDW Differential Plt Count MPV Immature Gran % (Auto) Neut % (Auto) Lymph % (Auto) [place] % (Auto) Eos % (Auto) Baso % (Auto) Absolute Neuts (auto) Absolute Lymphs (auto) Total Counted Sodium 138 Potassium 5.3 H Chloride 98 Carbon Dioxide 29.0 Anion Gap 11 BUN 60 H Creatinine 13.40 H* Estim Creat Clear Calc 7.87 Est GFR (MDRD) Af Amer 5 L Est GFR (MDRD) Non-Af 5 L BUN/Creatinine Ratio 4.5 L Glucose 103 Calcium 8.3 L Total Bilirubin 0.30 AST 8 L ALT 8 L Alkaline Phosphatase 66 Total Protein 8.0 Albumin 3.0 L Globulin 5.0 H Albumin/Globulin Ratio 0.6 L Assessment/Plan All Active Problems (Last Reviewed 01/07/19 @ 14:02 by Misa Robertson) Intractable low back pain (Acute) Abdominal pain (Acute) Acute viral bronchitis (Resolved) Chest pain, musculoskeletal (Resolved) Chest pain (Resolved) Junctional tachycardia (Resolved) Dyspnea (Resolved) Clotted dialysis access (Resolved) HCAP (healthcare-associated pneumonia) (Resolved) Chest pain at rest (Resolved) Hyperkalemia (Acute) Atrial fibrillation with RVR (Acute) Atrial fibrillation and flutter (Acute) History of blood clots (Resolved) ESRD. Dialysis today. Notified staff. Low back pain. Reviewed CT of the abdomen and pelvis films. Has multiple osteolytic lesions. This was seen in CT scan that he had in 2017, 2014. Essentially he has a large calcified mass extending from right pubic bones into right thigh muscles. 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 He has known history of poorly controlled hyperparathyroidism with PTH levels consistently above 1000. Phosphate levels are usually elevated. Has been resistant to parathyroid surgeries in the past. Recent access issues. Has a left femoral tunneled dialysis catheter. Tip ending in IVC at level of hepatic veins. Possible discharge after dialysis today.
--- NOTE | 2019-02-05 17:32 | DIALYSIS ---
Hemodialysis complet, unable to complete the entire 4.75 hour treatment due to poor CVC patency and system clotting. UF 1,713 mL removed. Patient tolerated treatment well, stable.
--- NOTE | 2019-02-05 18:04 | NURSING ---
pt sleeping during dialysis\
[2019-02-05] MEDS: Ferrous Sulfate 325 MG Tablet PO (18:35)
[2019-02-05] MEDS: Cinacalcet HCl 30 MG Tablet 60 MG PO (18:35)
[2019-02-05] MEDS: Morphine 2 MG/ML Syringe IV (20:11)
[2019-02-05] MEDS: Flecainide 100 MG Tablet PO (21:53)
[2019-02-05] MEDS: APIXABAN 2.5 MG TABLET PO (21:53)
[2019-02-05] MEDS: Metoprolol Tartrate 50 MG Tablet PO (21:53)
[2019-02-05] MEDS: MELATONIN 3 MG TABLET PO (23:53)
[2019-02-06 04:28] VITALS: BP 99/56; PULSE 89; RESP 18; TEMP 36.9; O2SAT 100
[2019-02-06 08:00] VITALS: O2SAT 92
--- NOTE | 2019-02-06 08:09 | PCM.DC ---
- Discharge Diagnoses Current Active Problems: Current Active and Chronic Problems (Last Reviewed 01/07/19 @ 14:02 by Misa Robertson) Intractable low back pain (Acute) PAF (paroxysmal atrial fibrillation) (Chronic) You will use the following diet at home:: Renal (restricted protein/sodium) Discharge Activity: Return to Normal Activity Allergies/Adverse Reactions: Allergies No Known Allergies Allergy (Verified 02/04/19 21:41) Medications to take at Discharge cinacalcet 60 mg tablet 60 mg PO MOWEFR 10/10/17 Apixaban [Eliquis] 2.5 mg PO BID 12/02/18 flecainide 100 mg tablet 100 mg PO Q12H #60 tab 12/25/18 Colchicine 0.6 mg PO TIDCM 02/05/19 Ferric Citrate [Auryxia] 210 mg PO TIDCM 02/05/19 Metoprolol Tartrate [Lopressor (beta zbigniew)] 50 mg PO BID 02/05/19 Primary Care Physician: Pawel Banda MD [Primary Care Provider] - Please follow up with your Primary Care Physician in: in 1-2 weeks Test Results: Test results from this visit will be discussed in further detail at your follow-up appointment, if applicable. Please Follow Up With: Tameka Melendez MD When: for dialysis Proposed Discharge Date: 02/06/19
--- NOTE | 2019-02-06 08:13 | DCINST_ITS ---
- Discharge Diagnoses Current Active Problems: Current Active and Chronic Problems (Last Reviewed 01/07/19 @ 14:02 by Misa Robertson) Intractable low back pain (Acute) PAF (paroxysmal atrial fibrillation) (Chronic) You will use the following diet at home:: Renal (restricted protein/sodium) Discharge Activity: Return to Normal Activity Allergies/Adverse Reactions: Allergies No Known Allergies Allergy (Verified 02/04/19 21:41) Medications to take at Discharge cinacalcet 60 mg tablet 60 mg PO MOWEFR 10/10/17 Apixaban [Eliquis] 2.5 mg PO BID 12/02/18 flecainide 100 mg tablet 100 mg PO Q12H #60 tab 12/25/18 Colchicine 0.6 mg PO TIDCM 02/05/19 Ferric Citrate [Auryxia] 210 mg PO TIDCM 02/05/19 Metoprolol Tartrate [Lopressor (beta zbigniew)] 50 mg PO BID 02/05/19 Primary Care Physician: Pawel Banda MD [Primary Care Provider] - Please follow up with your Primary Care Physician in: in 1-2 weeks Test Results: Test results from this visit will be discussed in further detail at your follow- up appointment, if applicable. Please Follow Up With: Tameka Melendez MD When: for dialysis Proposed Discharge Date: 02/06/19
--- NOTE | 2019-02-06 08:14 | PCM.DC.SUM ---
Discharge Date and Diagnosis - Problem List Patient Problems: Active and Suspected Problems (Last Reviewed 01/07/19 @ 14:02 by Misa Robertson) Intractable low back pain (Acute) Date of Admission: 02/05/19 Date of Discharge: 02/06/19 - Primary Discharge Diagnosis Active and Suspected Problems (Last Reviewed 01/07/19 @ 14:02 by Misa Robertson) Intractable low back pain (Acute) - Secondary Discharge Diagnosis Chronic Problems (Last Reviewed 01/07/19 @ 14:02 by Misa Robertson) PAF (paroxysmal atrial fibrillation) (Chronic) Left shoulder pain (Chronic) Anemia of chronic disorder (Chronic) History of bacterial endocarditis (Chronic) Hypertension (Chronic) ESRD (end stage renal disease) (Chronic) Due to hypertension, On hemodialysis, TTS, followed by Dr. 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 Bilateral low-attenuation structures within the kidneys. Some hyperdense regions which may represent hyperdense/proteinaceous cysts. These appear relatively similar to prior exam. Ultrasound could be performed to further evaluate on a nonemergent basis. Diverticulosis without definitive CT evidence for diverticulitis. Kidneys appear slightly atrophic. There is interval increase in size of the masslike structure extending through the medial right thigh muscles into the right rectus abdominis muscle with involvement of the pubic rami on the right and acetabulum. This appears increased in size as well as the amount of calcifications. This may represent tumoral calcinosis or myositis ossificans however malignancy cannot be excluded. Similar appearance to the lytic lesions within the sacroiliac joints and lower lumbar spine. Given patient's symptomology of hematuria evaluation is limited by lack of IV contrast. If there is continuing clinical concern consider correlation with CT hematuria protocol with IV contrast material. Electronically Signed: Kannan Greenberg, at 23:48 EDT Tel , Service support , Operations: None Summary of Care Provided: The patient is a 38 year old M with past medical history is none for end-stage renal disease on hemodialysis, hypertension, obstructive sleep apnea who presented with back pain 1. Acute back pain admitted to regular nursing floor for symptomatic management 2. End-stage renal disease on hemodialysis on Wednesdays and Fridays consultation was placed to nephrology during patient hospital stay did receive dialysis on 02/05/2019 3. Obstructive sleep apnea and is on CPAP at at bedtime 4. Bone mineral disease secondary to end-stage renal disease (hyperparathyroidism) 5. Essential hypertension did continue patient's home medications 6. Anemia secondary to anemia of chronic disorder 7. Paroxysmal atrial fibrillation patient is on flecainide beta-blockers as well as systemic anticoagulation with with Eliquis 8. Morbid obesity BMI of 42.6 9. Nonobstructed punctate nephrolithiasis 10. History of a pelvic mass extending into the right thigh muscles and rectus abdominal muscles with involvement of the the pubic rami on the right and acetabulum, appears increased in size as well as the amount of calcifications possibly food service representative of a tumoral calcinosis or myositis ossificans, similar appearance to the lytic lesions within the sacroiliac joints and lower lumbar spine. Patient is apparently aware of this mass and has apparently been managed at [facility] Patient Problems: Active and Suspected Problems (Last Reviewed 01/07/19 @ 14:02 by Misa Robertson) Intractable low back pain (Acute) - Physical Exam General: Alert, Cooperative HEENT: Atraumatic Lungs: Diminished Neurological: Cranial nerves II-XII grossly intact Psych/Mental Status: Appropriate Vital Signs Temp Pulse Resp BP Pulse Ox 98.4 F 89 18 99/56 L 92 02/06/19 04:28 02/06/19 04:28 02/06/19 04:28 02/06/19 04:28 02/06/19 08:00 Oxygen Flow Rate (L/min) 2 Oxygen Delivery Method Room Air Weight: 134.6 kg Body Mass Index (BMI) 42.6 Intake and Output for Last 24 Hours 02/04/19 02/05/19 02/06/19 23:59 23:59 23:59 Intake Total 1240 / 1240 200 / 200 Output Total 0 / 0 0 / 0 Balance 1240 / 1240 200 / 200 Discharge Diet: Renal Diet Discharge Activity: Return to Normal Activity Home Medications: Medications to take at Discharge cinacalcet 60 mg tablet 60 mg PO MOWEFR 10/10/17 Apixaban [Eliquis] 2.5 mg PO BID 12/02/18 flecainide 100 mg tablet 100 mg PO Q12H #60 tab 12/25/18 Colchicine 0.6 mg PO TIDCM 02/05/19 Ferric Citrate [Auryxia] 210 mg PO TIDCM 02/05/19 Metoprolol Tartrate [Lopressor (beta zbigniew)] 50 mg PO BID 02/05/19 Primary Care Physician: Pawel Banda MD [Primary Care Provider] - Please follow up with your Primary Care Physician in: in 1-2 weeks Please Follow Up With: Tameka Melendez MD When: for dialysis Disposition: Home Minutes spent on discharge:: 36 Medical Necessity - Tobacco Use Smoking Status: Never smoker Tobacco Use: Non-smoker Meaningful Use Info Meaningful Use Diagnoses (Choose all that apply): None applicable Code Visit OBSV E&M: 81832 Observation care discharge
[2019-02-06 08:35] VITALS: BP 119/65; PULSE 87; RESP 18; TEMP 36.9; O2SAT 100
[2019-02-06 08:36] VITALS: PULSE 87
[2019-02-06] MEDS: Flecainide 100 MG Tablet PO (08:36)
[2019-02-06] MEDS: Metoprolol Tartrate 50 MG Tablet PO (08:36)
[2019-02-06] MEDS: APIXABAN 2.5 MG TABLET PO (08:37)
[2019-02-06] MEDS: SEVELAMER CARBONATE 800 MG TABLET PO (08:37)
[2019-02-06] MEDS: Ferrous Sulfate 325 MG Tablet PO (08:37)
[2019-02-06] MEDS: HYDROcodone Bitartrate/Apap 5/325 Tablet PO (08:48)
== END 2019-02-06 09:50 | disposition home or self-care (01) ==
LOC: ED 22:19 → MS3 02-05 02:02
PROVIDERS: Admitting Provider Family Medicine; Emergency Provider Emergency Medicine; Family Provider Internal Medicine; PCP Internal Medicine; Referring Provider Family Medicine; Visit Provider Internal Medicine
DX: M54.5 Low back pain (principal); I48.0 Paroxysmal atrial fibrillation; I12.0 Hypertensive chronic kidney disease with stage 5 chronic kidney disease or end stage renal disease; N18.6 End stage renal disease; Z99.2 Dependence on renal dialysis; I48.91 Unspecified atrial fibrillation; R19.00 Intra-abdominal and pelvic swelling, mass and lump, unspecified site; E66.01 Morbid (severe) obesity due to excess calories; Z68.41 Body mass index [BMI] 40.0-44.9, adult; Z71.3 Dietary counseling and surveillance; N25.81 Secondary hyperparathyroidism of renal origin; D63.8 Anemia in other chronic diseases classified elsewhere; Z79.01 Long term (current) use of 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s; Z79.899 Other long term (current) drug therapy; E78.5 Hyperlipidemia, unspecified; M89.8X9 Other specified disorders of bone, unspecified site; H91.90 Unspecified hearing loss, unspecified ear; G47.33 Obstructive sleep apnea (adult) (pediatric)
CPT/HCPCS: 36415; 74176; 80048; 80053; 85025; 90937; 96374; 96375; 96376; 97802; 99218; 99284; A4216; G0257; G0378; J2405

== ENCOUNTER 2019-02-23 22:13 | Emergency (ER) | payer MEDICARE, SELFPAY ==
[2019-02-05 02:24] VITALS: BMI 42.6
[2019-02-23 22:15] VITALS: BP 124/70; PULSE 85; RESP 16; TEMP 36.8; O2SAT 99; BMI 54.8
--- NOTE | 2019-02-23 23:18 | ED.VISSUMM ---
- ER Visit Summary Date of Service: 02/23/19 Chief Complaint: Back pain History of Present Illness: The patient is a 38 M presenting with back pain. He states he has had back pain ongoing for the past month. He was admitted February 05 to February 06 for intractable back pain. At that time he had a CT abdomen pelvis which showed there is interval increase in size of the masslike structure extending through the medial right thigh muscles into the right rectus abdominis muscle with involvement of the pubic rami on the right and acetabulum. This appears increased in size as well as the amount of calcifications. This may represent tumoral calcinosis or myositis ossificans however malignancy cannot be excluded. Similar appearance to the lytic lesions within the sacroiliac joints and lower lumbar spine. He states he was aware of the mass in his pelvis and this has been looked into in the past. He states he has been told this mass is not cancer, he has been told it is calcium buildup from his dialysis. He was told during his hospital stay that he has lesions on his spine and was advised to follow-up with his primary care physician. He has an appointment next week. He denies numbness or weakness. He is able to ambulate. He denies bowel or bladder incontinence. Denies fever. Denies new complaints. He has tried Aleve and ibuprofen at home. Physical Examination: Vitals are stable. Patient is afebrile. Alert no acute distress. HEENT exam is unremarkable. Neck is supple. Lungs are clear and equal bilaterally. Heart is regular rate and rhythm. Abdomen is soft nontender nondistended. Back: Mild diffuse lumbar tenderness Extremities are unremarkable. Skin is warm and dry. No focal neurologic deficit. Normal strength and sensation Remainder of exam is unremarkable. Emergency Department Course and Treatment: Patient given morphine, Zofran IV. On reevaluation, patient's pain is controlled. He is advised the importance of keeping his scheduled follow-up appointments. He voices understanding. He is given a prescription for short course of [place]. He is advised to return to the ED for worsening complaints. Disposition: Discharge home Impression: Acute on chronic back pain This note was generated with [employer] dictation software. It may contain incorrect words, spelling, and punctuation that were not noted in review of the chart prior to signing ED Disposition - Plan for ED Patient: Instructions: ED Neck Back Pain General Prescriptions: Hydrocodone Bitart/Apap 5-325 [[place] 5MG-325MG] 1 tablet PO Q6H PRN PRN 3 Days #10 tablet PRN Reason: Pain Referrals: Pawel Banda MD [Primary Care Provider] -
[2019-02-23] MEDS: Ondansetron 4 MG/2 ML Vial IV (23:50)
[2019-02-23] MEDS: morphine 8 MG/ML Syringe IV (23:50)
--- NOTE | 2019-02-24 00:11 | DCINST.ED_ITS ---
ED Disposition - Plan for ED Patient: Instructions: ED Neck Back Pain General Prescriptions: Hydrocodone Bitart/Apap 5-325 [[place] 5MG-325MG] 1 tablet PO Q6H PRN PRN 3 Days #10 tablet PRN Reason: Pain Referrals: Pawel Banda MD [Primary Care Provider] -
[2019-02-24] MEDS: HYDROcodone Bitartrate/Apap 5/325 Tablet PO (00:29)
[2019-02-24 00:30] VITALS: BP 120/72; PULSE 81; RESP 18; O2SAT 100
== END 2019-02-24 00:36 | disposition home or self-care (01) ==
LOC: ED 23:36
PROVIDERS: Emergency Provider Emergency Medicine; Family Provider Internal Medicine; PCP Internal Medicine
DX: G89.29 Other chronic pain (principal); M54.5 Low back pain; I12.0 Hypertensive chronic kidney disease with stage 5 chronic kidney disease or end stage renal disease; N18.6 End stage renal disease; I48.91 Unspecified atrial fibrillation; G47.33 Obstructive sleep apnea (adult) (pediatric); Z99.2 Dependence on renal dialysis; Z79.02 Long term (current) use of antithrombotics/antiplatelets; Z79.899 Other long term (current) drug therapy
CPT/HCPCS: 96374; 96375; 99285; A4216; J2405

== ENCOUNTER 2019-03-02 15:24 | Inpatient (IN) | payer MEDICARE, SELFPAY ==
[2019-03-02] VITALS (10 sets, daily range): BP systolic 105–146; BP diastolic 63–104; PULSE 70–110; RESP 16–25; TEMP 36.1–36.4; O2SAT 96–100; BMI 54.8; BMI 44.4; BMI 42.9
--- NOTE | 2019-03-02 15:41 | EKG12_ITS ---
Test Reason : Blood Pressure : / mmHG Vent. Rate : 109 BPM Atrial Rate : 074 BPM P-R Int : 182 ms QRS Dur : 072 ms QT Int : 404 ms P-R-T Axes : 062 136 049 degrees QTc Int : 544 ms Sinus rhythm with frequent Premature ventricular complexes Right axis deviation Pulmonary disease pattern Septal infarct , age undetermined Prolonged QT Abnormal ECG Confirmed by TAMERA JOHNS ([id number]), video news editor MIKI PAULINO ([id number]) on 03/05/2019 6:13:10 AM Referred By: Myriam Smith Confirmed By:TAMERA JOHNS
--- NOTE | 2019-03-02 15:43 | RAD_ITS ---
STUDY: X-RAY CHEST REASON FOR EXAM: Male, 38 years old. Chest pain TECHNIQUE: Frontal view of the chest COMPARISON: 12/17/2018 FINDINGS: The lungs are clear. There are no pleural effusions. There is no pneumothorax. The heart is normal in size. There is stable scoliosis noted in the spine. RAD/Chest 1 View (Portable) IMPRESSION: No acute thoracic pathology. Electronically Signed: Darwin Ramires, at 16:01 EDT Tel , Service support ,
--- NOTE | 2019-03-02 15:48 | ED.DCSUM_ITS ---
- ER Visit Summary Date of Service: 03/02/19 Chief Complaint: Chest pain History of Present Illness: The patient is a 38 M with chest pain that started about an hour and a half prior to my evaluation. Pain is in his substernal area and left chest. He has difficulty describing it. Worse with lying flat. Associated with sweats and nausea. Patient has a history of end-stage renal disease and is on hemodialysis. He has been compliant with his treatment, and his last treatment was yesterday. He has a catheter in his groin. Patient had chest pain in the past. He had a CTA that showed no evidence of dissection and no evidence of effusion in August 2018. Pulmonary arteries were not well visualized, but the patient has been compliant with his Eliquis. He takes this for atrial fibrillation. Patient had a normal stress test in August 2018. He also underwent coronary catheterization, and he had no evidence of coronary disease. He has moderate LVH. Physical Examination: Afebrile and vital signs unremarkable except for a heart rate of 110. Heart is regular. Lungs clear in all page. Abdomen soft and nontender. Extremities nontender with no edema. Skin normal in color without pallor or diaphoresis. Patient appears uncomfortable. Test Results: EKG showed sinus rhythm at a rate of 103 with nonspecific septal changes. No sign of acute ischemia or infarction pattern. Lab work and chest x-ray pending. Emergency Department Course and Treatment: EKG as above. Patient placed on the monitor. I have low suspicion for ACS given that he had a normal catheterization just about 6 months ago. Patient is presently due. He is compliant with Eliquis. He had a CTA 6 months ago that showed no evidence of dissection or aneurysm. No evidence of effusion. Pain was treated with Dilaudid. Will check labs, chest x-ray and reevaluate. Initial work-up was fairly unremarkable. Potassium 5.8. Troponin normal. Patient received additional pain medicine. Repeat troponin was ordered. Repeat troponin was 0.949. Repeat EKG showed no change from previous except for T wave flattening in V2. Patient was discussed with cardiology. Dr. Chong reviewed his case with me and his prior records. We will treat with aspirin and Plavix at this time. Hold Eliquis in case of catheterization tomorrow. N.p.o. at midnight. Will need an echo in the morning. Continue to watch EKGs and troponins. Continue beta-blockers. Patient was discussed with the hospitalist and will be admitted. Treatment Plan: As above Disposition: Admission to PCU Impression: 1. Chest pain 2. Elevated troponin 3. End-stage renal disease This note was generated with [employer] dictation software. It may contain incorrect words, spelling, and punctuation that were not noted in review of the chart prior to signing ED Disposition - Plan for ED Patient: Referrals: Pawel Banda MD [Primary Care Provider] -
[2019-03-02] MEDS: HYDROmorphone 1 MG/ML Syringe IV ×2 (16:49→18:54)
[2019-03-02 17:01] LABS: Absolute Lymphocyte Count 0.53 X10^3/ul (0.83-4.51); Absolute Neutrophil Count 3.8 X10^3/uL (2.0-7.7); Basophil# 0.01 X10^3/uL; Basophil% 0.2 % (0-1); Differential Indicated SCAN CRITERIA MET; Eosinophils% 1.9 % (0-5); Hematocrit 34.4 % (40-54); Hemoglobin 10.6 g/dl (13.0-16.5); Lymphocyte # 0.53 X10^3/ul (4.0); Lymphocyte % 10.2 % (19-41); Mean Corp Hgb Conc 30.8 g/gl (32-36); Mean Corpuscular Hgb 29.4 pg (27.0-32.0); Mean Corpuscular Volume 95.6 fL (80-94); Mean Platelet Vol. 11.3 fl (6.2-12.0); Monocyte% 15.4 % (0-10); Neutrophil # 3.75 X10^3/uL (2.7-7.7); Neutrophil % 71.9 % (47-70); POSITIVE COUNT NO; POSITIVE DIFFERENTIAL YES; POSITIVE MORPHOLOGY NO; Platelet Count 161 K/mm3 (150-450); RBC Distribution Width CV 15.5 % (11.6-14.6); RBC Distribution Width SD 51.4 fl (35.1-43.9); White Blood Count 5.2 K/mm3 (4.4-11.0)
[2019-03-02 17:42] LABS: Anion Gap 8 (5-15); BUN 57 mg/dL (7-18); BUN/Creat Ratio 4.1 RATIO (10-20); Calcium,Total 8.7 mg/dL (8.5-10.1); Chloride 99 mmol/L (98-107); EST Glomerular Filtration Rate 4 mL/min (>60); Est Glom Filt Rate - Afr Amer 5 mL/min (>60); Estimated Creatinine Clearance 7.64 ml/min; Glucose 77 mg/dL (74-106); Potassium 5.8 mmol/L (3.5-5.1); Sodium Level 137 mmol/L (136-145)
--- NOTE | 2019-03-02 18:55 | ED.RN ---
PT RINGS CALL LIGHT TO REPORTS INCREASEDV PAIN, DR MARES INFORMED. NEW ORDERS FOR PAIN MEDICATION. WILL CONTINUE TO MONITOR.
--- NOTE | 2019-03-02 19:05 | ED.RN ---
DR MARES INFORMED OF CREATININE 13.8.
--- NOTE | 2019-03-02 19:28 | NURSING ---
PT REPORTS PAIN 04/07. DR MARES AWARE. NNO DR MARES REQUESTS THAT TROP BE REDRAWN AT THIS TIME.
--- NOTE | 2019-03-02 20:03 | ED.RN ---
DR. MARES INFORMED OF TROPONIN 0.949. WILL CONTINUE TO MONITOR.
--- NOTE | 2019-03-02 21:29 | HP.PCM_ITS ---
Problem List (1) Chest pain Status: Acute Qualifiers: Chest pain type: unspecified Qualified Code(s): R07.9 - Chest pain, unspecified (2) Cardiac enzymes elevated Status: Acute (3) Anemia of chronic disorder Status: Chronic (4) Hypertension Status: Chronic Qualifiers: Hypertension type: essential hypertension Qualified Code(s): I10 - Essential (primary) hypertension (5) ESRD (end stage renal disease) Status: Chronic Comment: Due to hypertension, On hemodialysis, TTS, followed by Dr. Goncalves (6) Morbidly obese Status: Chronic (7) Hematuria Status: Chronic Qualifiers: Hematuria type: unspecified type Qualified Code(s): R31.9 - Hematuria, unspecified (8) Pelvic mass Status: Chronic (9) Chronic pelvic pain in male Status: Chronic (10) Chronic kidney disease-mineral and bone disorder Status: Chronic (11) Atrial fibrillation and flutter Status: Chronic (12) Sleep apnea Status: Chronic Qualifiers: Sleep apnea type: unspecified type Qualified Code(s): G47.30 - Sleep apnea, unspecified (13) History of blood clots Status: Resolved Comment: fistula developed a clot and had to be surgically removed History of Present Illness Date of Admission: 03/02/19 Chief Complaint: Chest pain The patient is a 38 y/o M w/ PMHx: ESRD on HD MWF, HTN, HLD, Moderate Non- rheumatic MV stenosis, PAF on anticoagulation, Morbid Obesity, YEIMY on CPAP, AOCD, Former Tobacco use, Known Pelvic Mass with [facility] evaluation and noted that it was not cancerous with history of ongoing intermittent hematuria and lumbar back pain x 2 years being followed outpatient with Urology who presents to the [facility] ED on 03/02/19 with history of chest pain, sharp in nature, associated nausea and diaphoresis, retrosternal and left of sternum, started suddenly at 2:20 pm, initially 10/10 pain, notes intermittent, upon evaluation noting pain 4-5/10, although very comfortable appearing. Pain reproduced upon palpation in the ED during examination, extremely tender. Work-up in the ED included T 97, initial heart rate 110 with improvement 87, BP initial 146/104 with improvement to 125/92, respiratory rate 16, 97% on room air, CBC with WBC 5.2, hemoglobin 10.6, platelet 161 without market shift, BMP with potassium 5.8, BUN/creatinine 57/13.80, troponin initially obtained 0.017 with delta troponin 0.949, EKG with no acute evidence of ischemia, chest x-ray with no acute cardiopulmonary findings. In the ED patient ministered aspirin, Dilaudid 1 mg IV x 2. Cardiology consulted and requested plavix and ASA load. Past Medical History Past Medical History (Chronic Problems): Chronic Problems (Last Reviewed 01/07/19 @ 14:02 by Misa Robertson) PAF (paroxysmal atrial fibrillation) (Chronic) Left shoulder pain (Chronic) Anemia of chronic disorder (Chronic) History of bacterial endocarditis (Chronic) Hypertension (Chronic) ESRD (end stage renal disease) (Chronic) Due to hypertension, On hemodialysis, TTS, followed by Dr. 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) Atrial fibrillation and flutter (Chronic) Mitral valve disease (Chronic) Mitral valve stenosis (Chronic) Sleep apnea (Chronic) Hearing loss (Chronic) in both ears Medical History: Medical History (Last Reviewed 01/07/19 @ 14:02 by Misa Robertson) Mitral valve stenosis (Chronic) I05.0 Sleep apnea (Chronic) G47.30 History of blood clots (Resolved) Z86.718 fistula developed a clot and had to be surgically removed Hearing loss (Chronic) H91.90 in both ears Afib I48.91 ESRD (end stage renal disease) N18.6 Anemia of chronic disease D63.8 HTN (hypertension) I10 Allergies No Known Allergies Allergy (Verified 03/02/19 15:31) Home Medications: Ambulatory Orders Medication Instructions Recorded cinacalcet 60 mg tablet 60 mg PO MOWEFR 10/10/17 Apixaban [Eliquis] 2.5 mg PO BID 12/02/18 flecainide 100 mg tablet 100 mg PO Q12H #60 tab 12/25/18 Colchicine 0.6 mg PO BID 02/05/19 Ferric Citrate [Auryxia] 210 mg PO TIDCM 02/05/19 Metoprolol Tartrate [Lopressor 50 mg PO BID 02/05/19 (beta zbigniew)] Surgical History: herniorrhaphy, - - aVF x2, catheter placements, right upper extremity aneurysm removed. Psychiatric History: No pertinent psych hx Lives: Spouse/ Significant Other Smoking Status: Former smoker Tobacco Use: Non-smoker Alcohol: None Drugs: None - *Family History Paternal Family History: Family History (Last Updated 01/07/19 @ 14:03 by Misa Robertson) Other Adopted History Items: - - Patient was adopted and does not know his maternal or paternal family history. Maternal Family History: Family History (Last Updated 01/07/19 @ 14:03 by Misa Robertson) Other Adopted History Items: - - Patient was adopted and does not know his maternal or paternal family history. Review of Systems Constitutional: Reports: Malaise, Weakness, Fatigue. Denies: Chills, Fever, Weight Change HEENT: Denies: Head Aches, Sinus Congestion, Sinus Drainage Cardiovascular: Reports: Chest Pain. Denies: Chest Pressure, Chest Tightness, Heaviness, Light Headedness, Orthopnea, Palpitations, Syncope Respiratory: Reports: Shortness of Breath. Denies: Cough, Shortness of breath at rest, Sputum production Gastrointestinal: Reports: Nausea. Denies: Abdominal Pain, Vomiting Genitourinary: Denies: Dysuria Musculoskeletal: Reports: Back Pain. Denies: Joint Pain, Joint Tenderness Skin: Denies: Rash, Wounds Neurological: Denies: Numbness, Tingling, Focal weakness Psychiatric: Denies: Anxiety, Depression, Homicidal Ideations, Suicidal Ideations Hematologic/ Lymphatic: Reports: Anemia. Denies: Easy Bruising, Easy Bleeding VTE Information - Inpt Only VTE Present on Admission: No VTE Mechan Device Prophylaxis: SCD's VTE Pharm Prophylaxis ordered?: No Reason prophylaxis not ordered:: Medical Contraindication - Holding his anticoagulation for possible catheterization. Patient Problems: Active and Suspected Problems (Last Reviewed 01/07/19 @ 14:02 by Misa Robertson) Chest pain (Acute) Cardiac enzymes elevated (Acute) Subjective: Seated upright in ED bed, does not appear in distress but notes that chest discomfort is ongoing, currently rated 4-5 out of 10. Objective: Physical Examination: General: awake, alert, oriented x 3 and cooperative, seated upright in the ED bed, mildly fatigued appearance, no acute distress, notes ongoing chest discomfort. Skin: normal color, turgor, no icterus, cyanosis. HEENT: AT/NC, EOMI, PERRLA, MMM, no carotid bruits or JVD noted; however thickened neck makes examination difficult. Lungs: CTA bilaterally, moderate effort, moderate decrease BL bases, no rales, ronchi or wheezing. Heart: Regular rate and rhythm; no gallop, rub audible, reproducible midsternal palpation, extremely tender. Abdomen: soft, morbidly obese, unable to elicit discomfort w/ palpation, ND, normal BS, no HSM; however, habitus makes examination difficult. Extremities: no cyanosis, clubbing, mild nonpitting bilateral ankle edema, AVF groin. Neurological: patient awake, alert, oriented x 3; cognitive function intact; pupils equally reactive to light and accomodation; cranial nerves II-XII grossly normal, moving all 4 extremities, strength moderately globally decreased secondary to underlying chronic back pain and acute presentation. Psychiatric: affect appears fatigued, no acute evidence of depressive or anxiety feelings. - Physical Exam Vital Signs Temp Pulse Resp BP Pulse Ox 97 F L 88 25 H 111/83 H 99 03/02/19 15:26 03/02/19 20:00 03/02/19 20:00 03/02/19 20:00 03/02/19 19:04 Oxygen Flow Rate (L/min) 1 Oxygen Delivery Method Room Air Weight: 310 lb Body Mass Index (BMI) 44.4 Laboratory Tests Past 24 Hrs 03/02/19 03/02/19 03/02/19 16:45 16:45 19:36 WBC 5.2 RBC 3.60 L Hgb 10.6 L Hct 34.4 L MCV 95.6 H MCH 29.4 MCHC 30.8 L RDW 15.5 H RDW Differential 51.4 H Plt Count 161 MPV 11.3 Immature Gran % (Auto) 0.400 Neut % (Auto) 71.9 H Lymph % (Auto) 10.2 L [place] % (Auto) 15.4 H Eos % (Auto) 1.9 Baso % (Auto) 0.2 Absolute Neuts (auto) 3.8 Absolute Lymphs (auto) 0.53 L Total Counted Not Reportable Differential Comment Sodium 137 Potassium 5.8 H Chloride 99 Carbon Dioxide 30.0 Anion Gap 8 BUN 57 H Creatinine 13.80 H* Estim Creat Clear Calc 7.64 Est GFR (MDRD) Af Amer 5 L Est GFR (MDRD) Non-Af 4 L BUN/Creatinine Ratio 4.1 L Glucose 77 Calcium 8.7 Troponin I 0.017 0.949 H* Assessment/Plan All Active Problems (Last Reviewed 01/07/19 @ 14:02 by Misa Robertson) Intractable low back pain (Acute) Chest pain (Acute) Cardiac enzymes elevated (Acute) Abdominal pain (Acute) Acute viral bronchitis (Resolved) Chest pain, musculoskeletal (Resolved) Chest pain (Resolved) Junctional tachycardia (Resolved) Dyspnea (Resolved) Clotted dialysis access (Resolved) HCAP (healthcare-associated pneumonia) (Resolved) Chest pain at rest (Resolved) Hyperkalemia (Acute) Atrial fibrillation with RVR (Acute) History of blood clots (Resolved) The patient is a 38 y/o M w/ PMHx: ESRD on HD MWF, HTN, HLD, Moderate Non- rheumatic MV stenosis, PAF on anticoagulation, Morbid Obesity, YEIMY on CPAP, AOCD, Former Tobacco use, Known Pelvic Mass with [facility] evaluation and noted that it was not cancerous with history of ongoing intermittent hematuria and lumbar back pain x 2 years being followed outpatient with Urology who presents to the [facility] ED on 03/02/19 with history of chest pain, sharp in nature, associated nausea and diaphoresis, retrosternal and left of sternum, started suddenly at 2:20 pm, initially 10/10 pain, notes intermittent. (1) Chest Pain with Elevated Cardiac Enzyme, ? NSTEMI versus secondary to Chronic Underlying Diseases with prior Elevated Cardiac Enzymes: Work-up in the ED included T 97, initial heart rate 110 with improvement 87, BP initial 146/104 with improvement to 125/92, respiratory rate 16, 97% on room air, CBC with WC 5.2, hemoglobin 10.6, platelet 161 without market shift, BMP with potassium 5.8, BUN/creatinine 57/13.80, troponin initially obtained 0.017 with delta troponin 0.949, EKG with no acute evidence of ischemia, chest x-ray with no acute cardiopulmonary findings. Will admit to PCU, place on a monitored bed, obtain serial cardiac enzymes and EKGs. Per Cardiology recent 11/2018 assessment he has had recent unremarkable cardiac catheterization ~ 6 months prior, normal cardiac stress testing in 08/2018 with also noted prior history of indeterminant cardiac enzymes felt secondary to his renal disease. 09/2018 ECHO and YONATHAN with EF 68%, only notable for moderate to severe MV disease which will be repeated per Cardiology request. Already maintained on Eliquis which will be held. Cardiology requested administration loading ASA, Plavix. ASA, NG, morphine. FLP in AM, added statin. Mag pending. Cardiology consulted, pending. (2) ESRD: On HD MWF, will consult Nephrology, continue home routine HD regimen. (3) PAF: Continue home regimen flecainide, metoprolol, holding Eliquis. (4) Morbid Obesity: Weight loss and lifestyle changes encouraged, nutrition consulted. (5) Hypertension: Continue home regimen including metoprolol, PRN hydralazine. (6) Hyperlipidemia: Not on regimen, FLP in AM, added statin. (7) YEIMY: Continue home CPAP regimen. (8) AOCD: Admission Hgb 10.6, stable, trend. (9) Chronic Back Pain w/ Non-cancerous Pelvic Mass: Encourage continued evaluation per [facility], continue home oral regimen. (10) Chronic Intermittent hematuria: Encourage continued outpatient Urology follow-up (11) Valvular Heart Disease w/ NR Mitral Valve Stenosis: ECHO w/ normal LV size, mildly increased wall thickness, systolic function normal, EF 60%, no regional wall motion abnormalities, RV cavity size mildly dilated, systolic function normal, RVSP mildly increased, severely calcified annulus, moderately thickened MV consistent with moderately severe stenosis and follow-up YONATHAN w/ MV severely calcified with severely thickened annulus, transvalvular velocity is increased, findings consistent with moderate to severe stenosis, normal systolic function, mildly dilated LA, pulmonary artery systolic pressures within normal range estimated 25 mmHg (!2) DVT Prophylaxis: SCDs, holding home eliquis regimen. Code Visit Inpatient E&M: 15921 Init Hosp L3
--- NOTE | 2019-03-02 22:30 | EKG12_ITS ---
Test Reason : CP Blood Pressure : / mmHG Vent. Rate : 103 BPM Atrial Rate : 103 BPM P-R Int : 170 ms QRS Dur : 064 ms QT Int : 332 ms P-R-T Axes : 069 089 063 degrees QTc Int : 434 ms Poor data quality, interpretation may be adversely affected Sinus tachycardia Low voltage QRS Septal infarct , age undetermined Abnormal ECG Confirmed by TAMERA JOHNS ([id number]), editor news MIKI PAULINO ([id number]) on 03/05/2019 6:11:08 AM Referred By: Myriam Smith Confirmed By:TAMERA JOHNS
--- NOTE | 2019-03-02 22:33 | NURSING ---
ED RN SPOKE TO SAP MANAGER JOSSUE AND EXPLAINED THAT PATIENT HAD NOT RECEIVED PLAVIX OR ASA THAT HAD BEEN ORDERED. THIS RN EXPLAINED THAT PREVIOUSLY AA HAD BEEN HELD DUE TO PT POSSIBLY RECEIVING IT IN [place]. JOSSUE STATED THAT SHE WOULD MEDICATE PATIENT WITH PLAVIX AND SPEAK TO DR. YU ABOUT ASA.
[2019-03-02] MEDS: Aspirin 81 MG TAB.CHEW 324 MG PO (23:00)
[2019-03-02] MEDS: Clopidogrel Bisulfate 300 MG Tablet PO (23:00)
[2019-03-02] MEDS: 0.9% Normal Saline 1,000 ML 100 ML IV (23:01)
--- NOTE | 2019-03-02 23:04 | EKG12_ITS ---
Test Reason : ADM EKG Blood Pressure : / mmHG Vent. Rate : 073 BPM Atrial Rate : 073 BPM P-R Int : 180 ms QRS Dur : 068 ms QT Int : 416 ms P-R-T Axes : 058 133 052 degrees QTc Int : 458 ms Normal sinus rhythm with sinus arrhythmia Right axis deviation Pulmonary disease pattern Septal infarct , age undetermined Abnormal ECG When compared with ECG of 02-MAR-2019 15:30, MANUAL COMPARISON REQUIRED, DATA IS UNCONFIRMED Confirmed by SALMA STAHL, JACOBY ([id number]), commercial production editor MIKI PAULINO ([id number]) on 03/05/2019 8:31:21 AM Referred By: Myriam Smith Confirmed By:JACOBY MARSH MD
[2019-03-02 23:19] LABS: International Normalized Ratio 1.2; Prothrombin Time (Protime)PT. 14.7 SECONDS (11.7-14.9)
[2019-03-02 23:20] LABS: Partial Thromboplast Time 32.6 Seconds (24.1-36.2)
[2019-03-02 23:24] LABS: Magnesium 2.5 mg/dL (1.6-2.6)
--- NOTE | 2019-03-02 23:35 | NURSING ---
Pts primary rn aware of critical troponin of 2.18 at this time.
[2019-03-02] MEDS: Morphine 2 MG/ML Syringe IV (23:53)
[2019-03-02] MEDS: 0.9% NaCl Peripheral Flush Adult/Peds IV (23:53)
[2019-03-02] MEDS: Flecainide 100 MG Tablet PO (23:54)
[2019-03-02] MEDS: Atorvastatin Calcium 80 MG Tablet PO (23:54)
[2019-03-02] MEDS: Metoprolol Tartrate 50 MG Tablet PO (23:54)
[2019-03-03] VITALS (13 sets, daily range): BP systolic 104–141; BP diastolic 53–99; PULSE 72–96; RESP 16–20; TEMP 36.4–36.7; O2SAT 93–98
[2019-03-03] MEDS: HYDROcodone Bitartrate/Apap 5/325 Tablet PO (03:06)
[2019-03-03 05:32] LABS: Absolute Lymphocyte Count 1.06 X10^3/ul (0.83-4.51); Absolute Neutrophil Count 2.4 X10^3/uL (2.0-7.7); Basophil# 0.01 X10^3/uL; Basophil% 0.2 % (0-1); Eosinophil# 0.15 X10^3/uL; Eosinophils% 3.4 % (0-5); Hematocrit 32.4 % (40-54); Hemoglobin 9.8 g/dl (13.0-16.5); Lymphocyte # 1.06 X10^3/ul (4.0); Lymphocyte % 23.8 % (19-41); Mean Corp Hgb Conc 30.2 g/gl (32-36); Mean Corpuscular Hgb 28.9 pg (27.0-32.0); Mean Corpuscular Volume 95.6 fL (80-94); Mean Platelet Vol. 10.9 fl (6.2-12.0); Monocyte# 0.79 X10^3/uL; Monocyte% 17.8 % (0-10); Neutrophil # 2.43 X10^3/uL (2.7-7.7); Neutrophil % 54.6 % (47-70); Platelet Count 163 K/mm3 (150-450); RBC Distribution Width CV 15.4 % (11.6-14.6); RBC Distribution Width SD 51.4 fl (35.1-43.9); Red Blood Count 3.39 M/mm3 (4.6-6.2); White Blood Count 4.5 K/mm3 (4.4-11.0)
[2019-03-03 05:33] LABS: POSITIVE COUNT NO; POSITIVE DIFFERENTIAL NO; POSITIVE MORPHOLOGY NO
--- NOTE | 2019-03-03 05:55 | ECHOD_ITS ---
Reason For Study: Chest Pain Procedure This was a 2D Doppler, Color Flow transthoracic echocardiogram. The study was technically difficult. Exam performed portable in patient room. Left Ventricle Moderate concentric left ventricular hypertrophy. The estimated ejection fraction is 75 %. Unable to assess diastolic dysfunction due to arrhythmia. No regional wall motion abnormalities noted. Right Ventricle Normal size and thickness. Normal systolic function. Atria The left atrium is moderately enlarged. Normal right atrium. Normal atrial septum. Mitral Valve Moderate diffuse mitral valve thickening. Severe mitral annular calcification extending into the posterior leaflet. Moderate mitral valve stenosis. Peak transmitral valve gradient 21 mmHg. Mean transmitral valve gradient 8 mmHg. Mild (1+) mitral valve insufficiency. Tricuspid Valve Normal tricuspid valve. Mild to moderate (1-2+) tricuspid valve insufficiency. Right ventricular systolic pressure estimated to be 37 mmHg. Mild pulmonary hypertension. Aortic Valve Normal aortic valve. Trisinus/trileaflet aortic valve. Pulmonic Valve Normal pulmonic valve. Great Vessels Normal aortic root. Normal arch. Normal inferior vena cava. Inferior vena cava collapse with sniff. Pericardium/Pleural No pericardial effusion. MMode/2D Measurements & Calculations LVIDd: 3.9 cm IVSd: 1.6 cm LA dimension: 4.4 cm LVIDs: 2.1 cm LVPWd: 1.2 cm FS: 45.7 % LAV(MOD-sp4): 89.6 ml LA A4 area: 24.2 cm2 RA A4 area: 13.6 cm2 Time Measurements MV dec time: 0.38 sec Doppler Measurements & Calculations MV E max gaurang: 202.9 cm/sec Lat Peak E' Gaurang: 5.4 cm/sec Med Peak E' Gaurang: 6.2 cm/sec MV A max gaurang: 139.2 cm/sec E/E' lat: 37.4 E/E' med: 32.8 MV E/A: 1.5 MV V2 max: 228.5 cm/sec MV P1/2t max gaurang: 230.0 cm/sec Ao V2 max: 115.6 cm/sec MV max P.9 mmHg MV P1/2t: 125.3 msec Ao max P.3 mmHg MV V2 mean: 130.2 cm/sec MV dec slope: 537.6 cm/sec2 Ao V2 mean: 77.3 cm/sec MV mean P.2 mmHg MVA(P1/2t): 1.8 cm2 Ao mean P.7 mmHg MV V2 VTI: 68.3 cm Ao V2 VTI: 24.4 cm AI max gaurang: 165.2 cm/sec LV V1 max: 76.2 cm/sec MR max gaurang: 466.5 cm/sec AI max P.9 mmHg LV V1 max P.3 mmHg MR max P.1 mmHg LV V1 mean P.4 mmHg MR mean gaurang: 378.5 cm/sec AI dec slope: 158.3 cm/sec2 LV V1 mean: 55.7 cm/sec MR mean P.1 mmHg AI P1/2t: 305.7 msec LV V1 VTI: 15.5 cm MR VTI: 151.1 cm PA V2 max: 70.2 cm/sec TR max gaurang: 281.6 cm/sec TR max P.7 mmHg Interpretation Summary Moderate concentric left ventricular hypertrophy. The estimated ejection fraction is 75 %. Unable to assess diastolic dysfunction due to arrhythmia. The left atrium is moderately enlarged. Moderate diffuse mitral valve thickening. Mild (1+) mitral valve insufficiency. Moderate to severe mitral valve stenosis; Gradients may be underestimated. Recommend clinical correlation or alternative mode of testing (i.e. YONATHAN) if clincially indicated. Peak transmitral valve gradient 21 mmHg. Mean transmitral valve gradient 8 mmHg. Mild to moderate (1-2+) tricuspid valve insufficiency. Right ventricular systolic pressure estimated to be 37 mmHg. Mild pulmonary hypertension. Compared to echo report dated 09/15/2018, LV function has remained the same, Mitral gradients not assessed at that time. Ordering Physician: Myriam Smith Referring Physician: Myriam Smith Performed By: Wade Choi RCS
--- NOTE | 2019-03-03 05:55 | EKG12_ITS ---
Test Reason : AM EKG Blood Pressure : / mmHG Vent. Rate : 069 BPM Atrial Rate : 069 BPM P-R Int : 194 ms QRS Dur : 076 ms QT Int : 430 ms P-R-T Axes : 075 144 050 degrees QTc Int : 460 ms Normal sinus rhythm Right axis deviation Low voltage QRS Septal infarct , age undetermined Abnormal ECG When compared with ECG of 02-MAR-2019 23:04, MANUAL COMPARISON REQUIRED, DATA IS UNCONFIRMED Confirmed by SALMA STAHL, JACOBY ([id number]), brands editor MIKI PAULINO ([id number]) on 03/05/2019 8:13:56 AM Referred By: Myriam Smith Confirmed By:JACOBY MARSH MD
[2019-03-03 06:25] LABS: Anion Gap 11 (5-15); BUN 63 mg/dL (7-18); BUN/Creat Ratio 4.4 RATIO (10-20); Calcium,Total 8.1 mg/dL (8.5-10.1); Chloride 102 mmol/L (98-107); Cholesterol 153 mg/dL (200); EST Glomerular Filtration Rate 4 mL/min (>60); Est Glom Filt Rate - Afr Amer 5 mL/min (>60); Estimated Creatinine Clearance 7.32 ml/min; Glucose 92 mg/dL (74-106); High Density Lipoprotein 40 mg/dL; Potassium 5.4 mmol/L (3.5-5.1); Sodium Level 140 mmol/L (136-145); Triglycerides 100 mg/dL; Very Low Density Lipoprotein 20 mg/dL (5-40)
--- NOTE | 2019-03-03 07:22 | CON.PCM_ITS ---
Problem List (1) NSTEMI (non-ST elevated myocardial infarction) Status: Acute (2) Mitral valve stenosis Status: Chronic Qualifiers: Cardiac valve disease etiology: nonrheumatic Qualified Code(s): I34.2 - Nonrheumatic mitral (valve) stenosis (3) PAF (paroxysmal atrial fibrillation) Status: Chronic (4) Hypertension Status: Chronic Qualifiers: Hypertension type: essential hypertension Qualified Code(s): I10 - Essential (primary) hypertension (5) Dialysis patient Status: Chronic Reason for Consult Date of Consultation: 03/03/19 History of Present Illness: The patient is a 38 year old male who has a past medical history which apparently has included underlying mitral valve disorder with mitral valve stenosis, paroxysmal atrial fibrillation/flutter status post previous synchronized biphasic DC cardioversion, no angiographically significant appearing coronary artery disease per previous cardiac catheterization yet with a comment of a left circumflex coronary artery spasm reversed with intracoronary nitroglycerin, hypertension, end-stage renal disease with chronic hemodialysis, who was referred by the [facility] emergency department for concerns of chest pain and subsequent abnormal cardiac enzymes concerning for non-ST segment elevation TN. The patient stated he was fine yesterday until he was transferring a car seat for his 4-year-old son. When doing so he felt chest discomfort that was reminiscent of discomfort he had in August 2018. He states similar to that time it was somewhat hard to describe but stated it just hurt in his chest. He subsequently presented to the emergency department. According to the emergency department staff he was treated medically with narcotic analgesic therapy for his chest discomfort with subsequent improvement. However during his evaluation he underwent cardiac enzymes which were thought to be abnormal and he had an ECG which was thought to be abnormal demonstrating findings of sinus rhythm with a low voltage QRS in the limb leads with poor R wave progression in anterior septal TN pattern of indeterminate age. He had a chest x-ray performed which demonstrated no acute radiologic changes. He was subsequently placed in the PCU for further evaluation and care from a cardiovascular standpoint. Since being in the PCU he states he has had no ongoing chest discomfort. He has remained in sinus rhythm. His troponin I levels did turn positive and subsequently have begun to decline. His follow-up ECGs have demonstrated no acute changes. He has denied any ongoing orthopnea or PND or worsening peripheral pitting edema. There has been no near syncope or syncope. He did have a transthoracic echocardiogram performed at [facility] on 10/07/2018. At that time the left ventricle was thought to demonstrate normal LV systolic function with an LVEF of 60% with mild concentric left ventricular hypertrophy, the right ventricle was mildly dilated, the mitral valve annulus was reported severely calcified and there was comment that there was moderately severe mitral valve stenosis with mild MR. He also underwent evaluation with a transesophageal echocardiogram on 10/08/2018. According to that report the left and right ventricular systolic function was normal, the left atrium was mildly dilated, the mitral valve was reported as having severe mitral annular calcification with findings consistent with moderate to severe stenosis with subsequent comment the mitral valve did not appear to be rheumatic in the stenosis appeared to be primarily from an annular problem and not ideal for a balloon valvuloplasty. His estimated PA systolic pressure was 25 mmHg. At [facility] he has had a previous exercise tolerance test/imaging study performed on 09/15/2018. At that point in time based upon the pharmacologic stress nuclear imaging studies myocardial perfusion was thought to be normal. However he went on to have a diagnostic cardiac catheterization at [facility] on 09/17/2018. According to the report by Dr. Main his coronary arteries were normal, the left ventricle was normal with wall motion and systolic function, there was moderate left ventricular hypertrophy, and there was a comment that there was reversible distal LCx spasm corrected with intracoronary nitroglycerin. He was recommended for medical management including medical therapy with calcium channel antagonists. [] Past Medical History Allergies/Adverse Reactions: Allergies No Known Allergies Allergy (Verified 03/02/19 15:31) Home Medications: Ambulatory Orders Medication Instructions Recorded cinacalcet 60 mg tablet 60 mg PO MOWEFR 10/10/17 Apixaban [Eliquis] 2.5 mg PO BID 12/02/18 flecainide 100 mg tablet 100 mg PO Q12H #60 tab 12/25/18 Ferric Citrate [Auryxia] 210 mg PO TIDCM 02/05/19 Metoprolol Tartrate [Lopressor 50 mg PO BID 02/05/19 (beta zbigniew)] Past Medical History (Chronic Problems): Chronic Problems (Last Reviewed 01/07/19 @ 14:02 by Misa Robertson) PAF (paroxysmal atrial fibrillation) (Chronic) Dialysis patient (Chronic) Left shoulder pain (Chronic) Anemia of chronic disorder (Chronic) History of bacterial endocarditis (Chronic) Hypertension (Chronic) ESRD (end stage renal disease) (Chronic) Due to hypertension, On hemodialysis, TTS, followed by Dr. 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) Atrial fibrillation and flutter (Chronic) Mitral valve disease (Chronic) Mitral valve stenosis (Chronic) Sleep apnea (Chronic) Hearing loss (Chronic) in both ears Surgical History: herniorrhaphy, - - aVF x2, catheter placements, right upper extremity aneurysm removed. Psychiatric History: No pertinent psych hx - *Family History Paternal Family History: Family History (Last Updated 01/07/19 @ 14:03 by Misa Robertson) Other Adopted History Items: - - Patient was adopted and does not know his maternal or paternal family history. Maternal Family History: Family History (Last Updated 01/07/19 @ 14:03 by Misa Robertson) Other Adopted History Items: - - Patient was adopted and does not know his maternal or paternal family history. Lives: Spouse/ Significant Other Smoking Status: Former smoker Tobacco Use: Non-smoker Alcohol: None Drugs: None Review of Systems - Review of Systems General: Denies: Fever, Night Sweats, Fatigue Cardiovascular: Reports: Chest Discomfort Respiratory: Denies: Cough, Sputum Production, Hemoptysis Gastrointestinal: Denies: Hematemesis, Hematochezia, Melena Genitourinary: Denies: Dysuria, Hematuria Skin: Denies: Rash Subjectve: This is a 38-year-old male who appears to be resting comfortably at the moment in no acute distress. Objective: Vital Signs Temp Pulse Resp BP Pulse Ox 97.5 F L 72 16 104/53 L 97 03/03/19 03:00 03/03/19 05:45 03/03/19 05:45 03/03/19 03:00 03/03/19 05:45 Oxygen Flow Rate (L/min) 1 Oxygen Delivery Method Room Air Weight: 301 lb 13.005 oz Body Mass Index (BMI) 42.9 Intake and Output for Last 24 Hours 03/01/19 03/02/19 03/03/19 23:59 23:59 23:59 Intake Total 425.5 / 425.5 635 / 635 Balance 425.5 / 425.5 635 / 635 General: Awake, Alert, Oriented x 3, Cooperative, No Acute Distress HEENT: Atraumatic, Normocephalic, PERRL, EOMI, Sclera Non Icteric Oral: Moist Mucosa Neck: Supple, Good ROM, No JVD Lungs: Clear to auscultation Cardiovascular: Regular Rhythm, Normal S1, Normal S2 Vascular: No Carotid Bruits Abdomen: Bowel Sounds Present, Soft, Non Tender Extremities: No edema Neurological: No Focal Motor or Sensory Deficit Psych/Mental Status: Appropriate 03/02/19 16:45: WBC 5.2, RBC 3.60 L, Hgb 10.6 L, Hct 34.4 L, MCV 95.6 H, MCH 29.4, MCHC 30.8 L, RDW 15.5 H, RDW Differential 51.4 H, Plt Count 161, MPV 11.3, Immature Gran % (Auto) 0.400, Neut % (Auto) 71.9 H, Lymph % (Auto) 10.2 L, [place] % (Auto) 15.4 H, Eos % (Auto) 1.9, Baso % (Auto) 0.2, Absolute Neuts (auto) 3.8, Total Counted Not Reportable 03/02/19 16:45: Sodium 137, Potassium 5.8 H, Chloride 99, Carbon Dioxide 30.0, Anion Gap 8, BUN 57 H, Creatinine 13.80 H*, Est GFR (MDRD) Af Amer 5 L, Est GFR (MDRD) Non-Af 4 L, BUN/Creatinine Ratio 4.1 L, Glucose 77, Calcium 8.7, Troponin I 0.017 03/02/19 19:36: Troponin I 0.949 H* 03/02/19 22:55: PT 14.7, INR 1.2, APTT 32.6 03/02/19 22:55: Magnesium 2.5 03/02/19 22:55: Troponin I 2.180 H* 03/03/19 01:18: Troponin I 1.950 H* 03/03/19 05:15: WBC 4.5, RBC 3.39 L, Hgb 9.8 L, Hct 32.4 L, MCV 95.6 H, MCH 28.9, MCHC 30.2 L, RDW 15.4 H, RDW Differential 51.4 H, Plt Count 163, MPV 10.9, Immature Gran % (Auto) 0.200, Neut % (Auto) 54.6, Lymph % (Auto) 23.8, [place] % (Auto) 17.8 H, Eos % (Auto) 3.4, Baso % (Auto) 0.2, Absolute Neuts (auto) 2.4, Total Counted Not Reportable 03/03/19 05:15: Sodium 140, Potassium 5.4 H, Chloride 102, Carbon Dioxide 27.0, Anion Gap 11, BUN 63 H, Creatinine 14.40 H*, Est GFR (MDRD) Af Amer 5 L, Est GFR (MDRD) Non-Af 4 L, BUN/Creatinine Ratio 4.4 L, Glucose 92, Calcium 8.1 L, Triglycerides 100, Cholesterol 153, LDL Cholesterol 93, VLDL Cholesterol 20, HDL Cholesterol 40 Rhythm: Sinus rhythm EKG: As noted above ECHO: As noted above Stress Test: As noted above Cardiac Cath: As noted above CXR: As noted above Chest CT Scan: 10-07-18: Outside hospital: Considered nondiagnostic for great vessel disease/aortic dissection and nondiagnostic for thromboembolic disease/pulmonary embolism: Please see official report Assessment/Plan 1. Non-ST segment elevation TN The patient presented with chest discomfort. He has had noninvasive evaluation. This has included cardiac enzymes which have been positive and now subsequently declining. His ECGs have not demonstrated any acute ECG changes. It is unclear, with his history of no angiographically significant appearing CAD in the past as to whether or not he is now developed an acute coronary syndrome secondary to a plaque rupture, etc. versus this being a non-CAD/type II supply demand mismatch event noting that he has a reported history of an underlying hypertrophic type cardiomyopathy all superimposed upon chronic renal failure with chronic hemodialysis. At the present time his cardiac enzymes are decreasing. His ECG demonstrates no acute changes. He will be reassessed with a transthoracic echocardiogram to reevaluate his left ventricular wall thickness, wall motion, and systolic function. Consideration to be given as to whether or not he needs reevaluation either noninvasively or invasively with a stress nuclear imaging study or a repeat diagnostic cardiac catheterization. Again, he is hopeful that he will not need a repeat diagnostic cardiac catheterization. In the interim he is being treated medically. This has included aspirin and antiplatelet therapy. His 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s have been placed on temporary hold pending further evaluation and care. He continues his other medical therapy which can include nitrates as needed, beta blockers, etc. 2. Mitral valve disorder He does have a history of an underlying mitral valve disorder. He has been evaluated noninvasively and invasively as noted above. He is scheduled for a repeat transthoracic echocardiogram to reassess his left ventricular wall thickness, motion, and systolic function. At same time this can be used to reassess his mitral valve anatomy and physiology. 3. Atrial fibrillation/flutter status post synchronized biphasic DC cardioversion He has undergone evaluation for atrial fibrillation/flutter in the past. This led to medical management and synchronized biphasic DC cardioversion. At the present time he is in sinus rhythm. He continues with rate control therapy. He has been on antiarrhythmic therapy with flecainide/Tambocor. He has been coagulated as well. If there is any concerns with respect to the possibility of CAD and/or myocar dial injury and consideration will have to be given to altering his antiarrhythmic therapy from flecainide/Tambocor to an alternative agent. 4. Hypertension His blood pressures be followed. His medications can be adjusted as deemed appropriate. 5. End-stage renal disease with chronic hemodialysis He will continue under evaluation care by nephrology. It is noted that today would be his dialysis day. Comment: The above was discussed and reviewed with the patient, the [facility] emergency department staff, and the patient's primary machine fixer Dr. Moreno. This note was generated using a voice recognition system and there may be incorrect words, spelling or punctuation that were not noted when reviewing the office note prior to saving.
[2019-03-03] MEDS: Aspirin E.C. 81 MG Tablet PO (08:09)
[2019-03-03] MEDS: Cinacalcet HCl 30 MG Tablet 60 MG PO (08:09)
[2019-03-03] MEDS: Metoprolol Tartrate 50 MG Tablet PO ×2 (08:09→21:46)
[2019-03-03] MEDS: Flecainide 100 MG Tablet PO ×2 (08:09→21:46)
[2019-03-03] MEDS: Clopidogrel Bisulfate 75 MG Tablet PO (08:11)
[2019-03-03] MEDS: 0.9% Normal Saline 1,000 ML 100 ML IV (08:12)
--- NOTE | 2019-03-03 12:03 | PCM.CONS.R ---
Problem List (1) ESRD (end stage renal disease) Status: Chronic Comment: Due to hypertension, On hemodialysis, TTS, followed by Dr. Goncalves Consultation - Renal 03/03/19 PCP/ Referring MD: Requesting physician: Dr Smith Primary care physician: Pawel Banda MD Reason for Consultation:: ESRD - History of Present Illness History of Present Illness: The patient is a 38 year old M well-known to us. Known history of ESRD on dialysis Friday schedule. Last dialysis was Friday. Presented with chest pain and was found to have elevated troponins. Suspicion of non-ST elevation DE. Echocardiogram was ordered by cardiology and results are pending. Access is a femoral tunneled dialysis catheter. He did have a issues with dialysis catheter recently. Sees vascular surgeon up in [place]. - Allergies Allergies: Allergies No Known Allergies Allergy (Verified 03/02/19 15:31) - Current Medications Current Medications: Current Medications Acetaminophen (Tylenol) 650 mg PO Q6H PRN PRN PRN Reason: Non-cardiac pain (mod-severe) Hydrocodone Bitart/Acetaminophen ([place] 5mg-325mg) 1 - 2 tablet PO Q6H PRN PRN PRN Reason: MOD-SEVERE PAIN (4-10/10) Last Admin: 03/03/19 03:06 Dose: 2 tablet Al Hydroxide/Mg Hydroxide (Mylanta Ii) 15 - 30 ml PO Q4H PRN PRN PRN Reason: INDIGESTION Albuterol Sulfate (Ventolin Aerosols) 2.5 mg INHALATION Q2H PRN PRN PRN Reason: dyspnea, wheezing Aspirin (Ecotrin) 81 mg PO DAILY@0800 [facility] Last Admin: 03/03/19 08:09 Dose: 81 mg Atorvastatin Calcium (Lipitor) 80 mg PO QHS [facility] Last Admin: 03/02/19 23:54 Dose: 80 mg Cinacalcet (Sensipar) 60 mg PO MoWeFr@0800 [facility] Last Admin: 03/03/19 08:09 Dose: 60 mg Clopidogrel Bisulfate (Plavix) 75 mg PO DAILY [facility] Last Admin: 03/03/19 08:11 Dose: 75 mg Colchicine (Colchicine) 0.6 mg PO BID [facility] Last Admin: 03/03/19 08:09 Dose: 0.6 mg Dextrose (D50w Syringe) 0 gm IV X1 PRN; Protocol PRN Reason: Hypoglycemia Flecainide Acetate (Tambocor) 100 mg PO Q12 [facility] Last Admin: 03/03/19 08:09 Dose: 100 mg Glucagon () 1 mg IM .X1 PRN PRN Reason: Hypoglycemia Hydralazine HCl (Apresoline Iv) 10 mg IV Q4H PRN PRN PRN Reason: SBP > 160 Sodium Chloride () 1,000 mls @ 100 mls/hr IV .Q10H [facility] Last Admin: 03/03/19 08:12 Dose: 100 mls/hr Melatonin (Melatonin) 3 mg PO QHS PRN PRN PRN Reason: INSOMNIA Metoprolol Tartrate (Lopressor (Beta Yossi)) 50 mg PO BID [facility] Last Admin: 03/03/19 08:09 Dose: 50 mg Morphine Sulfate () 1 - 2 mg IV Q4H PRN PRN PRN Reason: PAIN Last Admin: 03/02/19 23:53 Dose: 2 mg Nitroglycerin (Nitrostat) 0.4 mg SUBLINGUAL Q5M PRN PRN Reason: CARDIAC/CHEST PAIN Ondansetron HCl (Zofran) 4 mg IV Q8H PRN PRN PRN Reason: NAUSEA/VOMITING Sodium Chloride () 5 - 15 ml IV UD PRN PRN Reason: SALINE FLUSH Last Admin: 03/02/19 23:53 Dose: 10 ml - Past Medical History Past Medical History (Chronic Problems): Chronic Problems (Last Reviewed 01/07/19 @ 14:02 by Msia Robertson) PAF (paroxysmal atrial fibrillation) (Chronic) Dialysis patient (Chronic) Left shoulder pain (Chronic) Anemia of chronic disorder (Chronic) History of bacterial endocarditis (Chronic) Hypertension (Chronic) ESRD (end stage renal disease) (Chronic) Due to hypertension, On hemodialysis, TTS, followed by Dr. 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) Atrial fibrillation and flutter (Chronic) Mitral valve disease (Chronic) Mitral valve stenosis (Chronic) Sleep apnea (Chronic) Hearing loss (Chronic) in both ears - Past Surgical History Surgical History: herniorrhaphy, - - aVF x2, catheter placements, right upper extremity aneurysm removed. - Social History Smoking Status: Former smoker Alcohol: None Drugs: None - Family History Paternal Family History: Family History (Last Updated 01/07/19 @ 14:03 by Misa Robertson) Other Adopted History Items: - - Patient was adopted and does not know his maternal or paternal family history. Maternal Family History: Family History (Last Updated 01/07/19 @ 14:03 by Misa Robertson) Other Adopted History Items: - - Patient was adopted and does not know his maternal or paternal family history. Review of Systems Constitutional: Denies: Chills, Fever, Weight Change HEENT: Denies: Head Aches, Sinus Congestion, Sinus Drainage Cardiovascular: Denies: Chest Pain, Palpitations Respiratory: Denies: Cough, Shortness of breath at rest, Sputum production Gastrointestinal: Denies: Abdominal Pain, Nausea, Vomiting Genitourinary: Denies: Dysuria Musculoskeletal: Denies: Joint Pain, Joint Tenderness Skin: Denies: Rash, Wounds Neurological: Denies: Numbness, Tingling, Focal weakness Psychiatric: Denies: Anxiety, Depression, Homicidal Ideations, Suicidal Ideations Hematologic/ Lymphatic: Denies: Easy Bruising, Easy Bleeding Patient Problems: Active and Suspected Problems (Last Reviewed 01/07/19 @ 14:02 by Misa Robertson) Chest pain (Acute) Cardiac enzymes elevated (Acute) NSTEMI (non-ST elevated myocardial infarction) (Acute) - Physical Exam General: Alert, Oriented x3, Cooperative HEENT: Atraumatic, PERRLA, EOMI, Normocephalic Neck: Supple, No JVD, Negative Carotid Bruits Lungs: Clear to auscultation, Normal air movement Cardiovascular: Regular rate, No murmurs Abdomen: Bowel Sounds Present, Soft, Non Tender Extremities: No edema, Capillary Refill Less than 3 Seconds Skin: No rashes, No breakdown Musculoskeletal: No Tenderness to Palpation of Joints or Extremities Neurological: Cranial nerves II-XII grossly intact Psych/Mental Status: Normal Affect, Appropriate Vital Signs Temp Pulse Resp BP Pulse Ox 98.0 F 96 18 141/99 H 93 03/03/19 10:00 03/03/19 10:00 03/03/19 10:00 03/03/19 10:00 03/03/19 10:00 Oxygen Flow Rate (L/min) 1 Oxygen Delivery Method Room Air Weight: 136.9 kg Body Mass Index (BMI) 42.9 Intake and Output for Last 24 Hours 03/01/19 03/02/19 03/03/19 23:59 23:59 23:59 Intake Total 425.5 / 425.5 635 / 635 Balance 425.5 / 425.5 635 / 635 Laboratory Tests Past 24 Hrs 03/02/19 03/02/19 03/02/19 16:45 16:45 19:36 WBC 5.2 RBC 3.60 L Hgb 10.6 L Hct 34.4 L MCV 95.6 H MCH 29.4 MCHC 30.8 L RDW 15.5 H RDW Differential 51.4 H Plt Count 161 MPV 11.3 Immature Gran % (Auto) 0.400 Neut % (Auto) 71.9 H Lymph % (Auto) 10.2 L [place] % (Auto) 15.4 H Eos % (Auto) 1.9 Baso % (Auto) 0.2 Absolute Neuts (auto) 3.8 Absolute Lymphs (auto) 0.53 L Total Counted Not Reportable Differential Comment PT INR APTT Sodium 137 Potassium 5.8 H Chloride 99 Carbon Dioxide 30.0 Anion Gap 8 BUN 57 H Creatinine 13.80 H* Estim Creat Clear Calc 7.64 Est GFR (MDRD) Af Amer 5 L Est GFR (MDRD) Non-Af 4 L BUN/Creatinine Ratio 4.1 L Glucose 77 Calcium 8.7 Magnesium Troponin I 0.017 0.949 H* Triglycerides Cholesterol LDL Cholesterol VLDL Cholesterol HDL Cholesterol 03/02/19 03/02/19 03/02/19 22:55 22:55 22:55 WBC RBC Hgb Hct MCV MCH MCHC RDW RDW Differential Plt Count MPV Immature Gran % (Auto) Neut % (Auto) Lymph % (Auto) [place] % (Auto) Eos % (Auto) Baso % (Auto) Absolute Neuts (auto) Absolute Lymphs (auto) Total Counted Differential Comment PT 14.7 INR 1.2 APTT 32.6 Sodium Potassium Chloride Carbon Dioxide Anion Gap BUN Creatinine Estim Creat Clear Calc Est GFR (MDRD) Af Amer Est GFR (MDRD) Non-Af BUN/Creatinine Ratio Glucose Calcium Magnesium 2.5 Troponin I 2.180 H* Triglycerides Cholesterol LDL Cholesterol VLDL Cholesterol HDL Cholesterol 06/02/1403/03/19 03/03/19 01:18 05:15 05:15 WBC 4.5 RBC 3.39 L Hgb 9.8 L Hct 32.4 L MCV 95.6 H MCH 28.9 MCHC 30.2 L RDW 15.4 H RDW Differential 51.4 H Plt Count 163 MPV 10.9 Immature Gran % (Auto) 0.200 Neut % (Auto) 54.6 Lymph % (Auto) 23.8 [place] % (Auto) 17.8 H Eos % (Auto) 3.4 Baso % (Auto) 0.2 Absolute Neuts (auto) 2.4 Absolute Lymphs (auto) 1.06 Total Counted Not Reportable Differential Comment PT INR APTT Sodium 140 Potassium 5.4 H Chloride 102 Carbon Dioxide 27.0 Anion Gap 11 BUN 63 H Creatinine 14.40 H* Estim Creat Clear Calc 7.32 Est GFR (MDRD) Af Amer 5 L Est GFR (MDRD) Non-Af 4 L BUN/Creatinine Ratio 4.4 L Glucose 92 Calcium 8.1 L Magnesium Troponin I 1.950 H* Triglycerides 100 Cholesterol 153 LDL Cholesterol 93 VLDL Cholesterol 20 HDL Cholesterol 40 Assessment/Plan All Active Problems (Last Reviewed 01/07/19 @ 14:02 by Misa Robertson) Intractable low back pain (Acute) Chest pain (Acute) Cardiac enzymes elevated (Acute) NSTEMI (non-ST elevated myocardial infarction) (Acute) Abdominal pain (Acute) Acute viral bronchitis (Resolved) Chest pain, musculoskeletal (Resolved) Chest pain (Resolved) Junctional tachycardia (Resolved) Dyspnea (Resolved) Clotted dialysis access (Resolved) HCAP (healthcare-associated pneumonia) (Resolved) Chest pain at rest (Resolved) Hyperkalemia (Acute) Atrial fibrillation with RVR (Acute) History of blood clots (Resolved) ESRD. Dialysis will be arranged for today. Anemia. Hemoglobin is close to goal. Chest pain with elevated troponins. Possible non-ST elevation DE versus demand ischemia. Cardiology ordered echocardiogram. Results are pending. Hyperkalemia. Should improve with dialysis.
--- NOTE | 2019-03-03 12:33 | PN_ITS ---
<Venu Mcfarland - Last Filed: 03/03/19 12:24> Patient Problems: Active and Suspected Problems (Last Reviewed 01/07/19 @ 14:02 by Misa Robertson) Chest pain (Acute) Cardiac enzymes elevated (Acute) NSTEMI (non-ST elevated myocardial infarction) (Acute) Subjective: Patient is resting comfortably in bed, no acute distress. He states he has had no issues since in [facility]. He believes that his episode was triggered by stress. He was moving a car seat and lost his balance, tripping, and almost fell. He was fortunately able to brace himself and not at the ground. Currently has no chest pain, no shortness of breath, no palpitations, no no lightheaded or dizziness, no lower extremity edema. He is undecided about what he wants to do for further cardiac work-up. - Physical Exam General: Alert, Oriented x3, Cooperative HEENT: Atraumatic, PERRLA, EOMI, Normocephalic Neck: Supple, No JVD, Negative Carotid Bruits Lungs: Clear to auscultation, Normal air movement Cardiovascular: Regular rate, No murmurs Abdomen: Bowel Sounds Present, Soft, Non Tender Extremities: No edema, Capillary Refill Less than 3 Seconds Skin: No rashes, No breakdown Musculoskeletal: No Tenderness to Palpation of Joints or Extremities Neurological: Cranial nerves II-XII grossly intact Psych/Mental Status: Normal Affect, Appropriate, Alert and oriented to time, place, person, mood and affect Vital Signs Temp Pulse Resp BP Pulse Ox 98.0 F 96 18 141/99 H 93 03/03/19 10:00 03/03/19 10:00 03/03/19 10:00 03/03/19 10:00 03/03/19 10:00 Oxygen Flow Rate (L/min) 1 Oxygen Delivery Method Room Air Weight: 301 lb 13.005 oz Body Mass Index (BMI) 42.9 Intake and Output for Last 24 Hours 03/01/19 03/02/19 03/03/19 23:59 23:59 23:59 Intake Total 425.5 / 425.5 635 / 635 Balance 425.5 / 425.5 635 / 635 Laboratory Tests Past 24 Hrs 03/02/19 03/02/19 03/02/19 16:45 16:45 19:36 WBC 5.2 RBC 3.60 L Hgb 10.6 L Hct 34.4 L MCV 95.6 H MCH 29.4 MCHC 30.8 L RDW 15.5 H RDW Differential 51.4 H Plt Count 161 MPV 11.3 Immature Gran % (Auto) 0.400 Neut % (Auto) 71.9 H Lymph % (Auto) 10.2 L Waldo % (Auto) 15.4 H Eos % (Auto) 1.9 Baso % (Auto) 0.2 Absolute Neuts (auto) 3.8 Absolute Lymphs (auto) 0.53 L Total Counted Not Reportable Differential Comment PT INR APTT Sodium 137 Potassium 5.8 H Chloride 99 Carbon Dioxide 30.0 Anion Gap 8 BUN 57 H Creatinine 13.80 H* Estim Creat Clear Calc 7.64 Est GFR (MDRD) Af Amer 5 L Est GFR (MDRD) Non-Af 4 L BUN/Creatinine Ratio 4.1 L Glucose 77 Calcium 8.7 Magnesium Troponin I 0.017 0.949 H* Triglycerides Cholesterol LDL Cholesterol VLDL Cholesterol HDL Cholesterol 03/02/19 03/02/19 03/02/19 22:55 22:55 22:55 WBC RBC Hgb Hct MCV MCH MCHC RDW RDW Differential Plt Count MPV Immature Gran % (Auto) Neut % (Auto) Lymph % (Auto) Waldo % (Auto) Eos % (Auto) Baso % (Auto) Absolute Neuts (auto) Absolute Lymphs (auto) Total Counted Differential Comment PT 14.7 INR 1.2 APTT 32.6 Sodium Potassium Chloride Carbon Dioxide Anion Gap BUN Creatinine Estim Creat Clear Calc Est GFR (MDRD) Af Amer Est GFR (MDRD) Non-Af BUN/Creatinine Ratio Glucose Calcium Magnesium 2.5 Troponin I 2.180 H* Triglycerides Cholesterol LDL Cholesterol VLDL Cholesterol HDL Cholesterol 03/03/19 03/03/19 03/03/19 01:18 05:15 05:15 WBC 4.5 RBC 3.39 L Hgb 9.8 L Hct 32.4 L MCV 95.6 H MCH 28.9 MCHC 30.2 L RDW 15.4 H RDW Differential 51.4 H Plt Count 163 MPV 10.9 Immature Gran % (Auto) 0.200 Neut % (Auto) 54.6 Lymph % (Auto) 23.8 Waldo % (Auto) 17.8 H Eos % (Auto) 3.4 Baso % (Auto) 0.2 Absolute Neuts (auto) 2.4 Absolute Lymphs (auto) 1.06 Total Counted Not Reportable Differential Comment PT INR APTT Sodium 140 Potassium 5.4 H Chloride 102 Carbon Dioxide 27.0 Anion Gap 11 BUN 63 H Creatinine 14.40 H* Estim Creat Clear Calc 7.32 Est GFR (MDRD) Af Amer 5 L Est GFR (MDRD) Non-Af 4 L BUN/Creatinine Ratio 4.4 L Glucose 92 Calcium 8.1 L Magnesium Troponin I 1.950 H* Triglycerides 100 Cholesterol 153 LDL Cholesterol 93 VLDL Cholesterol 20 HDL Cholesterol 40 Medical Necessity - Tobacco Use Smoking Status: Former smoker Tobacco Use: Non-smoker Assessment/Plan All Active Problems (Last Reviewed 01/07/19 @ 14:02 by Misa Robertson) Intractable low back pain (Acute) Chest pain (Acute) Cardiac enzymes elevated (Acute) NSTEMI (non-ST elevated myocardial infarction) (Acute) Abdominal pain (Acute) Acute viral bronchitis (Resolved) Chest pain, musculoskeletal (Resolved) Chest pain (Resolved) Junctional tachycardia (Resolved) Dyspnea (Resolved) Clotted dialysis access (Resolved) HCAP (healthcare-associated pneumonia) (Resolved) Chest pain at rest (Resolved) Hyperkalemia (Acute) Atrial fibrillation with RVR (Acute) History of blood clots (Resolved) 1. Chest pain, with elevated cardiac enzymes, suspected to be non-STEMI -last cath in August did not show any occlusive disease, however his enzymes are significantly more elevated. Trend EKGs, echocardiogram is pending. Possibly stress test versus repeat catheterization. Currently patient is asymptomatic. Echo is back and demonstrates moderate concentric LVH, EF 75%, moderately enlarged left atrium, moderate diffuse mitral valve thickening 1+ MVI, moderate to severe mitral valve stenosis, RVSP 37 consistent with mild pulmonary hypertension. Patient is on aspirin, statin, Plavix, metoprolol. 2. ESRD with hyperkalemia-nephrology is following, continue dialysis as dir ected. 3. Mitral valve stenosis, severe as per echo. 4. Hypertension-stable 5. Atrial fibrillation-in sinus rhythm. On Tambocor, metoprolol 6. Obstructive sleep apnea-on home CPAP 7. 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 8. Chronic intermittent hematuria-follows urology DVT prophylaxis: Hold Eliquis for possible intervention This patient was seen by Venu Mcfarland PA-C under the supervision of Doctor Dennis. <Wild Collins - Last Filed: 03/03/19 14:34> - Physical Exam Vital Signs Temp Pulse Resp BP Pulse Ox 98.0 F 96 18 141/99 H 93 03/03/19 10:00 03/03/19 10:00 03/03/19 10:00 03/03/19 10:00 03/03/19 10:00 Oxygen Flow Rate (L/min) 1 Oxygen Delivery Method Room Air Weight: 136.9 kg Body Mass Index (BMI) 42.9 Intake and Output for Last 24 Hours 03/01/19 03/02/19 03/03/19 23:59 23:59 23:59 Intake Total 425.5 / 425.5 1431 / 1431 Balance 425.5 / 425.5 1431 / 1431 Laboratory Tests Past 24 Hrs 03/02/19 03/02/19 03/02/19 16:45 16:45 19:36 WBC 5.2 RBC 3.60 L Hgb 10.6 L Hct 34.4 L MCV 95.6 H MCH 29.4 MCHC 30.8 L RDW 15.5 H RDW Differential 51.4 H Plt Count 161 MPV 11.3 Immature Gran % (Auto) 0.400 Neut % (Auto) 71.9 H Lymph % (Auto) 10.2 L Waldo % (Auto) 15.4 H Eos % (Auto) 1.9 Baso % (Auto) 0.2 Absolute Neuts (auto) 3.8 Absolute Lymphs (auto) 0.53 L Total Counted Not Reportable Differential Comment PT INR APTT Sodium 137 Potassium 5.8 H Chloride 99 Carbon Dioxide 30.0 Anion Gap 8 BUN 57 H Creatinine 13.80 H* Estim Creat Clear Calc 7.64 Est GFR (MDRD) Af Amer 5 L Est GFR (MDRD) Non-Af 4 L BUN/Creatinine Ratio 4.1 L Glucose 77 Calcium 8.7 Magnesium Troponin I 0.017 0.949 H* Triglycerides Cholesterol LDL Cholesterol VLDL Cholesterol HDL Cholesterol 03/02/19 03/02/19 03/02/19 22:55 22:55 22:55 WBC RBC Hgb Hct MCV MCH MCHC RDW RDW Differential Plt Count MPV Immature Gran % (Auto) Neut % (Auto) Lymph % (Auto) Waldo % (Auto) Eos % (Auto) Baso % (Auto) Absolute Neuts (auto) Absolute Lymphs (auto) Total Counted Differential Comment PT 14.7 INR 1.2 APTT 32.6 Sodium Potassium Chloride Carbon Dioxide Anion Gap BUN Creatinine Estim Creat Clear Calc Est GFR (MDRD) Af Amer Est GFR (MDRD) Non-Af BUN/Creatinine Ratio Glucose Calcium Magnesium 2.5 Troponin I 2.180 H* Triglycerides Cholesterol LDL Cholesterol VLDL Cholesterol HDL Cholesterol 03/03/19 03/03/19 03/03/19 01:18 05:15 05:15 WBC 4.5 RBC 3.39 L Hgb 9.8 L Hct 32.4 L MCV 95.6 H MCH 28.9 MCHC 30.2 L RDW 15.4 H RDW Differential 51.4 H Plt Count 163 MPV 10.9 Immature Gran % (Auto) 0.200 Neut % (Auto) 54.6 Lymph % (Auto) 23.8 Waldo % (Auto) 17.8 H Eos % (Auto) 3.4 Baso % (Auto) 0.2 Absolute Neuts (auto) 2.4 Absolute Lymphs (auto) 1.06 Total Counted Not Reportable Differential Comment PT INR APTT Sodium 140 Potassium 5.4 H Chloride 102 Carbon Dioxide 27.0 Anion Gap 11 BUN 63 H Creatinine 14.40 H* Estim Creat Clear Calc 7.32 Est GFR (MDRD) Af Amer 5 L Est GFR (MDRD) Non-Af 4 L BUN/Creatinine Ratio 4.4 L Glucose 92 Calcium 8.1 L Magnesium Troponin I 1.950 H* Triglycerides 100 Cholesterol 153 LDL Cholesterol 93 VLDL Cholesterol 20 HDL Cholesterol 40 Assessment/Plan This patient was seen in conjunction with Venu Mcfarland PA-C . I have independently interviewed and examined the patient and reviewed pertinent historical, laboratory, and other data. Please refer to Venu Mcfarland PA-C note for details of this patient's presentation, findings, and recommendations. I have reviewed Venu Mcfarland PA-C note and concur with documented findings. In brief, patient is a 38-year-old gentleman with significant medical comorbidities in spite of his young age who presented with chest pain Physical Examination: GENERAL: cooperative HEENT: Atraumatic; moist oral mucosa EYES; Anicteric, Normal Conjunctiva NECK; supple, normal thyroid, RESPIRATORY: Diminished to auscultation bilaterally, CARDIOVASCULAR: Regular S1 S2, NEURO: Awake; no lateralizing signs. SKIN: No Rash PSYCH; flat affect Assessment: 1. Chest pain 2. ESRD 3. Hyperkalemia 4. Hypertension-stable 5. Atrial fibrillation 6. Obstructive sleep apnea 7. Mitral valve stenosis. 8. DVT prophylaxis on Eliquis Recommendations: 1. I have discussed the results of my overview and impressions with the patient 2. Options for management were reviewed Code Visit Inpatient E&M: 90805 Subs Hosp L3
--- NOTE | 2019-03-03 13:00 | CASEMGMT ---
RACHEL PARNELL assessment: Face to Face with patient for initial transition planning/care coordination assessment. RACHEL PARNELL introduced self and role at [facility], pt voices understanding and consents to assessment at this time. Pt is lying in bed in no distress at this time. Pt is A/Ox4 at this time and answers all questions appropriately at this time. Pt's oxygen equipment preparer at bedside during assessment. Care providers, pharmacy, and demographics verified at this time. PCP: [facility] Specialists: camilla Melendez Pharmacy: [facility] Living Will/HPOA: Pt states does not have LW/HPOA and declines info at this time. LNOK: London Weston, ; Yara Weston, mother Living Arrangements: Pt states lives with and on in 1 story apt with a flight of stairs and states no concerns at home at this time. Pt is independent with ADL's. Transportation: Pt states drives self and states no transportation concerns at this time. DME/HHC: Pt states has a cpap thru [facility]. Pt states no need for any further DME at this time. Pt states no hx of HHC or SNF in the past. Pt states has OP dialysis M,W,F at [address] [facility]. Pt states no concerns with going home at time of discharge. Pt states is disabled. Pt states does not smoke or drink ETOH. Pt states no further questions/concerns/needs at this time. CM to follow for any further discharge planning/needs. Advised pt to ask for CM if any further questions/concerns/needs arise, voices understanding. Pt Goal: Home Plan[place] RACHEL PARNELL
--- NOTE | 2019-03-03 16:55 | DCINST_ITS ---
- Discharge Diagnoses Current Active Problems: Current Active and Chronic Problems (Last Reviewed 01/07/19 @ 14:02 by Misa Robertson) Chest pain (Acute) Cardiac enzymes elevated (Acute) NSTEMI (non-ST elevated myocardial infarction) (Acute) Dialysis patient (Chronic) You will use the following diet at home:: Cardiac, Renal (restricted protein/sodium) Your food should be the consistency of: Regular Your liquids should be the consistency of: Regular/Thin Discharge Activity: Return to Normal Activity Allergies/Adverse Reactions: Allergies No Known Allergies Allergy (Verified 03/02/19 15:31) Medications to take at Discharge cinacalcet 60 mg tablet 60 mg PO MOWEFR 10/10/17 Apixaban [Eliquis] 2.5 mg PO BID 12/02/18 flecainide 100 mg tablet 100 mg PO Q12H #60 tab 12/25/18 Ferric Citrate [Auryxia] 210 mg PO TIDCM 02/05/19 Metoprolol Tartrate [Lopressor (beta zbigniew)] 50 mg PO BID 02/05/19 Aspirin E.C. [Ecotrin] 81 mg PO DAILY@0800 tablet 03/03/19 Atorvastatin Calcium [Lipitor] 80 mg PO QHS #30 tablet 03/03/19 Clopidogrel Bisulfate [Plavix] 75 mg PO DAILY #30 tablet 03/03/19 The following prescriptions were given: Atorvastatin Calcium [Lipitor] 80 mg PO QHS #30 tablet Clopidogrel Bisulfate [Plavix] 75 mg PO DAILY #30 tablet Primary Care Physician: Pawel Banda MD [Primary Care Provider] - Please follow up with your Primary Care Physician in: 1-2 weeks Test Results: Test results from this visit will be discussed in further detail at your follow- up appointment, if applicable. Please Follow Up With: Nnamdi Moreno MD When: as directed Please Follow Up With: Neprhology When: as directed Proposed Discharge Date: 03/03/19
--- NOTE | 2019-03-03 16:55 | PCM.DC.SUM ---
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) Atrial fibrillation and flutter (Chronic) Mitral valve disease (Chronic) Mitral valve stenosis (Chronic) Sleep apnea (Chronic) Hearing loss (Chronic) in both ears Hospital Course and Treatment Imaging Results: RAD/Chest 1 View (Portable) IMPRESSION: No acute thoracic pathology. Echo: Interpretation Summary Moderate concentric left ventricular hypertrophy. The estimated ejection fraction is 75 %. Unable to assess diastolic dysfunction due to arrhythmia. The left atrium is moderately enlarged. Moderate diffuse mitral valve thickening. Mild (1+) mitral valve insufficiency. Moderate to severe mitral valve stenosis; Gradients may be underestimated. Recommend clinical correlation or alternative mode of testing (i.e. YONATHAN) if clincially indicated. Peak transmitral valve gradient 21 mmHg. Mean transmitral valve gradient 8 mmHg. Mild to moderate (1-2+) tricuspid valve insufficiency. Right ventricular systolic pressure estimated to be 37 mmHg. Mild pulmonary hypertension. Compared to echo report dated 09/15/2018, LV function has remained the same, Mitral gradients not assessed at that time. Consults: [facility]/Josh - Cardiology Operations: None Procedures: 2-D Echocardiogram Summary of Care Provided: Hospital Course: The patient is a 38 year old M with a past medical history of end-stage renal disease, moderate severe mitral valve stenosis, paroxysmal atrial fibrillation and flutter status post DC cardioversion, obstructive sleep apnea on home CPAP, chronic back pain with a known cancer pelvic mass, and chronic intermittent hematuria who presented to the emergency room with complaints of chest pain and syncope. The patient was getting into his car to adjust a car seat for his child when he lost his balance and fell. He was able to catch himself however he developed chest pain and passed out briefly. In the emergency room his EKG did not show any acute process, but his troponin was elevated consistent with non-STEMI. Chest x-ray was negative. He was admitted to the PCU on telemetry with cardiology on consult. Troponin rogelio to 2.180 before declining to 1.950. He had had a heart catheterization in August of this past year with no significant coronary disease and no subsequent intervention, and did not want to pursue another heart catheterization. He was agreeable to having an echocardiogram. He had no regional wall abnormalities, EF of 75%, moderate to severe mitral valve stenosis which is known, and mild pulmonary hypertension with RVSP of 37 mmHg. He had no further lightheadedness, dizziness, chest pain, palpitations, shortness of breath. Cardiology felt that the patient was stable for discharge home. He was placed on aspirin, high-dose statin, and Plavix. 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 This patient was seen by Venu Mcfarland PA-C under the supervision of Doctor Collins. [] - Physical Exam General: Alert, Oriented x3, Cooperative HEENT: Atraumatic, PERRLA, EOMI, Normocephalic Neck: Supple, No JVD, Negative Carotid Bruits Lungs: Clear to auscultation, Normal air movement Cardiovascular: Regular rate, No murmurs Abdomen: Bowel Sounds Present, Soft, Non Tender Extremities: No edema, Capillary Refill Less than 3 Seconds Skin: No rashes, No breakdown Musculoskeletal: No Tenderness to Palpation of Joints or Extremities Neurological: Cranial nerves II-XII grossly intact Psych/Mental Status: Normal Affect, Appropriate, Alert and oriented to time, place, person, mood and affect Vital Signs Temp Pulse Resp BP Pulse Ox 98.0 F 87 18 141/99 H 93 03/03/19 10:00 03/03/19 14:58 03/03/19 10:00 03/03/19 10:00 03/03/19 10:00 Oxygen Flow Rate (L/min) 1 Oxygen Delivery Method Room Air Weight: 301 lb 13.005 oz Body Mass Index (BMI) 42.9 Intake and Output for Last 24 Hours 03/01/19 03/02/19 03/03/19 23:59 23:59 23:59 Intake Total 425.5 / 425.5 1431 / 1431 Balance 425.5 / 425.5 1431 / 1431 Laboratory Tests Past 24 Hrs 03/02/19 03/02/19 03/02/19 16:45 16:45 19:36 WBC 5.2 RBC 3.60 L Hgb 10.6 L Hct 34.4 L MCV 95.6 H MCH 29.4 MCHC 30.8 L RDW 15.5 H RDW Differential 51.4 H Plt Count 161 MPV 11.3 Immature Gran % (Auto) 0.400 Neut % (Auto) 71.9 H Lymph % (Auto) 10.2 L Centre % (Auto) 15.4 H Eos % (Auto) 1.9 Baso % (Auto) 0.2 Absolute Neuts (auto) 3.8 Absolute Lymphs (auto) 0.53 L Total Counted Not Reportable Differential Comment PT INR APTT Sodium 137 Potassium 5.8 H Chloride 99 Carbon Dioxide 30.0 Anion Gap 8 BUN 57 H Creatinine 13.80 H* Estim Creat Clear Calc 7.64 Est GFR (MDRD) Af Amer 5 L Est GFR (MDRD) Non-Af 4 L BUN/Creatinine Ratio 4.1 L Glucose 77 Calcium 8.7 Magnesium Troponin I 0.017 0.949 H* Triglycerides Cholesterol LDL Cholesterol VLDL Cholesterol HDL Cholesterol 03/02/19 03/02/19 03/02/19 22:55 22:55 22:55 WBC RBC Hgb Hct MCV MCH MCHC RDW RDW Differential Plt Count MPV Immature Gran % (Auto) Neut % (Auto) Lymph % (Auto) Centre % (Auto) Eos % (Auto) Baso % (Auto) Absolute Neuts (auto) Absolute Lymphs (auto) Total Counted Differential Comment PT 14.7 INR 1.2 APTT 32.6 Sodium Potassium Chloride Carbon Dioxide Anion Gap BUN Creatinine Estim Creat Clear Calc Est GFR (MDRD) Af Amer Est GFR (MDRD) Non-Af BUN/Creatinine Ratio Glucose Calcium Magnesium 2.5 Troponin I 2.180 H* Triglycerides Cholesterol LDL Cholesterol VLDL Cholesterol HDL Cholesterol 03/03/19 03/03/19 03/03/19 01:18 05:15 05:15 WBC 4.5 RBC 3.39 L Hgb 9.8 L Hct 32.4 L MCV 95.6 H MCH 28.9 MCHC 30.2 L RDW 15.4 H RDW Differential 51.4 H Plt Count 163 MPV 10.9 Immature Gran % (Auto) 0.200 Neut % (Auto) 54.6 Lymph % (Auto) 23.8 Centre % (Auto) 17.8 H Eos % (Auto) 3.4 Baso % (Auto) 0.2 Absolute Neuts (auto) 2.4 Absolute Lymphs (auto) 1.06 Total Counted Not Reportable Differential Comment PT INR APTT Sodium 140 Potassium 5.4 H Chloride 102 Carbon Dioxide 27.0 Anion Gap 11 BUN 63 H Creatinine 14.40 H* Estim Creat Clear Calc 7.32 Est GFR (MDRD) Af Amer 5 L Est GFR (MDRD) Non-Af 4 L BUN/Creatinine Ratio 4.4 L Glucose 92 Calcium 8.1 L Magnesium Troponin I 1.950 H* Triglycerides 100 Cholesterol 153 LDL Cholesterol 93 VLDL Cholesterol 20 HDL Cholesterol 40 Discharge Diet: Low fat/ Low Cholesterol, 2000 mg Sodium Diet, Renal Diet Discharge Activity: Return to Normal Activity Home Medications: Medications to take at Discharge cinacalcet 60 mg tablet 60 mg PO MOWEFR 10/10/17 Apixaban [Eliquis] 2.5 mg PO BID 12/02/18 flecainide 100 mg tablet 100 mg PO Q12H #60 tab 12/25/18 Ferric Citrate [Auryxia] 210 mg PO TIDCM 02/05/19 Metoprolol Tartrate [Lopressor (beta zbigniew)] 50 mg PO BID 02/05/19 Aspirin E.C. [Ecotrin] 81 mg PO DAILY@0800 tablet 03/03/19 Atorvastatin Calcium [Lipitor] 80 mg PO QHS #30 tablet 03/03/19 Clopidogrel Bisulfate [Plavix] 75 mg PO DAILY #30 tablet 03/03/19 Following Prescrptions Were Given to Patient: Atorvastatin Calcium [Lipitor] 80 mg PO QHS #30 tablet Clopidogrel Bisulfate [Plavix] 75 mg PO DAILY #30 tablet Primary Care Physician: Pawel Banda MD [Primary Care Provider] - Please follow up with your Primary Care Physician in: 1-2 weeks Please Follow Up With: Nnamdi Moreno MD When: as directed Please Follow Up With: Neprhology When: as directed Disposition: Home Minutes spent on discharge:: 35 Patient Condition:: Stable Medical Necessity - Tobacco Use Smoking Status: Former smoker Tobacco Use: Non-smoker Meaningful Use Info Meaningful Use Diagnoses (Choose all that apply): None applicable <Wild Collins - Last Filed: 03/04/19 11:00> Discharge Date and Diagnosis - Secondary Discharge Diagnosis Chronic Problems (Last Reviewed 01/07/19 @ 14:02 by Misa Robertson) PAF (paroxysmal atrial fibrillation) (Chronic) Dialysis patient (Chronic) Left shoulder pain (Chronic) Anemia of chronic disorder (Chronic) History of bacterial endocarditis (Chronic) Hypertension (Chronic) ESRD (end stage renal disease) (Chronic) Due to hypertension, On hemodialysis, TTS, followed by Dr. 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) Atrial fibrillation and flutter (Chronic) Mitral valve disease (Chronic) Mitral valve stenosis (Chronic) Sleep apnea (Chronic) Hearing loss (Chronic) in both ears Hospital Course and Treatment Summary of Care Provided: This patient was seen in conjunction with Venu Mcfarland PA-C . I have independently interviewed and examined the patient and reviewed pertinent historical, laboratory, and other data. Please refer to Venu Mcfarland PA-C note for details of this patient's presentation, findings, and recommendations. I have reviewed Venu Mcfarland PA-C note and concur with documented findings. In brief, patient is a 38-year-old gentleman with significant medical comorbidities in spite of his young age who presented with chest pain Physical Examination: GENERAL: cooperative HEENT: Atraumatic; moist oral mucosa EYES; Anicteric, Normal Conjunctiva NECK; supple, normal thyroid, RESPIRATORY: Diminished to auscultation bilaterally, CARDIOVASCULAR: Regular S1 S2, NEURO: Awake; no lateralizing signs. SKIN: No Rash PSYCH; flat affect Assessment: 1. Chest pain 2. ESRD 3. Hyperkalemia 4. Hypertension-stable 5. Atrial fibrillation 6. Obstructive sleep apnea 7. Mitral valve stenosis. 8. DVT prophylaxis on [facility] Hospital course: As documented above by Venu Mcfarland PA-C - Physical Exam Vital Signs Temp Pulse Resp BP Pulse Ox 98.1 F 87 18 122/76 H 95 03/03/19 21:30 03/03/19 21:46 03/03/19 21:30 03/03/19 21:46 03/03/19 21:30 Oxygen Flow Rate (L/min) 1 Oxygen Delivery Method Room Air Weight: 136.9 kg Body Mass Index (BMI) 42.9 Intake and Output for Last 24 Hours 03/02/19 03/03/19 03/04/19 23:59 23:59 23:59 Intake Total 425.5 / 425.5 1671 / 1671 Balance 425.5 / 425.5 1671 / 1671 Code Visit OBSV E&M: 13602 Observation care discharge
--- NOTE | 2019-03-03 17:22 | PCM.PN.BLA ---
Progress Note Called to see patient who insists on going home. Discussed his clinical condition with him. He does understand the risk. We reviewed the previous cardiac catheterization performed 6 months ago as well as his echocardiographic evaluation. He is noted to have mild to moderate mitral stenosis and may need a transesophageal echocardiogram at some point. The troponin elevation may likely be from his severe hypertrophy, and hypertension. He did have mild coronary artery disease. At this time he is not interested in undergoing another cardiac catheterization. At his insistence the plan would be to discharge him and have close outpatient follow-up. His EKG was without any abnormalities at present. Thank you for allowing me to participate in the care of your patient. Please don't hesitate to call if any issues arise
[2019-03-03] MEDS: Heparin 10,000 UNITS/10 ML Vial 12000 UNITS IV (20:37)
[2019-03-03] MEDS: Heparin 10,000 UNITS/10 ML Vial 6000 UNITS IV (20:38)
[2019-03-03] MEDS: Heparin 10,000 UNITS/10 ML Vial 10000 UNITS IV (20:38)
[2019-03-03] MEDS: Atorvastatin Calcium 80 MG Tablet PO (21:46)
--- NOTE | 2019-03-03 21:55 | DIALYSIS ---
Hemodialysis completed x 4 hours 45 min on a 2 k bath. Fluid removed was 4400 ml. Dressing change was done to left femoral tunnelled cath. Site WNL. Next HD will be friday at outpatient center. See dialysis flow sheet for details. Post VS 122/76 58 98.7 95%. Verbal report given to Jeri RAMOS. Patient ready for discharge.
--- NOTE | 2019-03-04 14:07 | CASEMGMT ---
RACHEL PARNELL Discharge Follow-Up Phone Call. [place]: 13 Strata: 4 Discharge Date: 03/03/19 Adm Dx: Elevated Cardiac Enzymes, CP Call to pt to inquire about how he has been doing since being discharged from the hospital. Pt states he has been doing good. He states he was able to picking supervisor the new prescriptions and denies having any questions about the discharge instructions or medications. RACHEL PARNELL inquired about follow-up appts and pt states he has not called to make them yet but plans to do so soon. Pt denies having any other questions/concerns at this time. RACHEL PARNELL thanked pt for choosing [facility]. Sandra KENNEDY RN, CM
== END 2019-03-03 22:21 | disposition home or self-care (01) | DRG 280 ==
LOC: ED 17:27 → PCU 22:10
PROVIDERS: Admitting Provider Family Medicine; Emergency Provider Emergency Medicine; Family Provider Internal Medicine; PCP Internal Medicine; Referring Provider Family Medicine; Visit Provider Internal Medicine
DX: I21.4 Non-ST elevation (NSTEMI) myocardial infarction (principal); N18.6 End stage renal disease; I12.0 Hypertensive chronic kidney disease with stage 5 chronic kidney disease or end stage renal disease; I48.92 Unspecified atrial flutter; Z68.41 Body mass index [BMI] 40.0-44.9, adult; I34.2 Nonrheumatic mitral (valve) stenosis; I48.0 Paroxysmal atrial fibrillation; G47.33 Obstructive sleep apnea (adult) (pediatric); G89.29 Other chronic pain; R19.00 Intra-abdominal and pelvic swelling, mass and lump, unspecified site; M54.5 Low back pain; R31.9 Hematuria, unspecified; Z99.2 Dependence on renal dialysis; D63.1 Anemia in chronic kidney disease; E66.01 Morbid (severe) obesity due to excess calories; Z79.02 Long term (current) use of antithrombotics/antiplatelets; Z79.899 Other long term (current) drug therapy; Z87.891 Personal history of nicotine dependence; E78.5 Hyperlipidemia, unspecified; E87.5 Hyperkalemia; I25.10 Atherosclerotic heart disease of native coronary artery without angina pectoris; I27.20 Pulmonary hypertension, unspecified
CPT/HCPCS: 36415; 71045; 80048; 80061; 83735; 84484; 85025; 85610; 85730; 90937; 93005; 93306; 94660; 97802; 99285; J7030; Q9957; A4216; G0257

== ENCOUNTER 2019-06-06 22:48 | Emergency (ER) | payer MEDICARE, SELFPAY ==
[2019-04-30 13:43] VITALS: BMI 42.6
[2019-06-06 22:49] VITALS: BP 110/60; PULSE 119; RESP 20; TEMP 37.3; O2SAT 96; BMI 43.0
--- NOTE | 2019-06-06 23:08 | EKG12_ITS ---
Test Reason : SOB Blood Pressure : / mmHG Vent. Rate : 112 BPM Atrial Rate : 112 BPM P-R Int : 166 ms QRS Dur : 072 ms QT Int : 322 ms P-R-T Axes : 083 122 071 degrees QTc Int : 439 ms Sinus tachycardia Right axis deviation Abnormal ECG Confirmed by SALMA STAHL, JACOBY ([id number]), newspaper editor managing MARGARITO CHANDLER ([id number]) on 06/08/2019 9:30:31 AM Referred By: EARL Confirmed By:JACOBY MARSH MD
--- NOTE | 2019-06-06 23:10 | ED.VISSUMM ---
- ER Visit Summary Date of Service: 06/06/19 Chief Complaint: Shortness of breath History of Present Illness: The patient is a 39 M who presents with shortness of breath that has been getting worse since yesterday. Patient states his breathing is worse with laying flat. Patient states he takes dialysis 3 days a week. Patient states this is been constant. Patient states his last dialysis was 2 days ago. Patient admits to some pain over his upper chest. Patient also admits to pain in his left shoulder and arm. Patient states that pain is worse with movement. Patient states he is having difficulty abducting his left arm due to the pain. Patient denies any fevers or chills. Patient denies any cough. Patient denies any sore throat or rhinorrhea. Physical Examination: Vital signs are stable. Patient is afebrile. Patient is in no acute distress. Oral mucosa is pink and moist. Neck is supple. Trachea is midline. There is no JVD noted. Heart was regular rate and rhythm. Lungs are clear and equal bilateral. Abdomen is soft. Bowel sounds are normal. There is no tenderness. There is no guarding noted. Skin is warm dry. Cranial nerves II through XII are intact. There are no sensory deficits noted. Strength is 4/5 in the left bicep, tricep, and abduction of the shoulder. Strength is 5/5 bilaterally in the lower extremities and right upper extremity. There is some mild atrophy of the left hand muscles. Test Results: EKG showed sinus tachycardia with a rate of 112. There are no acute ST or T wave changes noted. This was unchanged compared to previous EKG dated 03/03/2019. CBC showed mild anemia with a hemoglobin of 9.6 and hematocrit 30.9. This was stable compared to previous results. Basic metabolic profile showed elevated BUN and creatinine of 75 and 12.6. Patient has a history of end-stage renal disease and is on dialysis. Troponin was normal. BNP was 178.9. INR is 1.3. PA and lateral chest x-ray was obtained. There is no acute cardiopulmonary process. Emergency Department Course and Treatment: Patient was advised of his laboratory, EKG, and x-ray findings. Patient has a HEART score of 1. Patient was advised that this is low risk for acute cardiac event. Patient was advised that his left shoulder pain may be related to rotator cuff. Patient was instructed to follow-up with his primary care physician in 3 to 5 days for further evaluation. Patient understood and was agreeable with the plan. All questions were answered. Disposition: Discharge home Impression: Chest pain This note was generated with [employer] dictation software. It may contain incorrect words, spelling, and punctuation that were not noted in review of the chart prior to signing ED Disposition - Plan for ED Patient: Disposition: Home or Assisted Living Diagnosis: Chest pain, ESRD (end stage renal disease), Morbidly obese Instructions: CHEST PAIN, Uncertain Cause Referrals: Pawel Banda MD [Primary Care Provider] - 3-5 Days
--- NOTE | 2019-06-06 23:38 | RAD_ITS ---
STUDY: X-RAY CHEST REASON FOR EXAM: Male, 39 years old. Short of breath. Pain with deep breathing. Left arm pain. TECHNIQUE: PA and lateral chest. COMPARISON: 03/02/2019 CXR FINDINGS: No apparent pneumothorax, pneumonia, pleural effusion, or edema. Coarse bibasilar interstitial prominence chronic and unchanged. Cardiac silhouette, michael and mediastinal contours are within normal limits. Dual lumen IV catheter partially visible in the IVC extending to the caval atrial junction. No acute osseous abnormality. Moderate right scoliosis centered at T9, erosive changes of both shoulders again demonstrated. No evidence of free air under the diaphragm. RAD/Chest PA and Lateral IMPRESSION: No acute findings. Electronically Signed: Salvador Capone, at 0:03 EDT Tel , Service support ,
[2019-06-06] MEDS: Morphine 4 MG/ML Syringe IV (23:59)
[2019-06-07 00:03] LABS: Absolute Neutrophil Count 3.7 X10^3/uL (2.0-7.7); Basophil# 0.04 X10^3/uL; Basophil% 0.7 % (0-1); Eosinophil# 0.11 X10^3/uL; Eosinophils% 1.8 % (0-5); Hematocrit 30.9 % (40-54); Hemoglobin 9.6 g/dL (13.0-16.5); Lymphocyte % 18.5 % (19-41); Mean Corp Hgb Conc 31.1 g/dL (32-36); Mean Corpuscular Hgb 29.1 pg (27.0-32.0); Mean Corpuscular Volume 93.6 fL (80-94); Mean Platelet Vol. 11.9 fl (6.2-12.0); Monocyte# 1.01 X10^3/uL; Monocyte% 16.9 % (0-10); NRBC Flagged by Analyzer 0 % (0-5); Neutrophil # 3.66 X10^3/uL (2.7-7.7); Neutrophil % 61.4 % (47-70); Platelet Count 154 K/mm3 (150-450); RBC Distribution Width CV 16.5 % (11.6-14.6); RBC Distribution Width SD 56.8 fl (35.1-43.9)
[2019-06-07 00:04] VITALS: BP 112/65; PULSE 108; RESP 23; O2SAT 98
[2019-06-07 00:35] LABS: BNP,B-Type NATRIURETIC PEPTIDE 178.9 pg/mL (0-100)
[2019-06-07 00:40] LABS: International Normalized Ratio 1.3; Prothrombin Time (Protime)PT. 15.6 SECONDS (11.7-14.9)
[2019-06-07 00:51] LABS: Anion Gap 11 (5-15); BUN 75 mg/dL (7-18); Calcium,Total 8.2 mg/dL (8.5-10.1); Chloride 98 mmol/L (98-107); EST Glomerular Filtration Rate 5 mL/min (>60); Est Glom Filt Rate - Afr Amer 6 mL/min (>60); Estimated Creatinine Clearance 8.29 ml/min; Glucose 100 mg/dL (74-106); Potassium 4.6 mmol/L (3.5-5.1); Sodium Level 136 mmol/L (136-145)
--- NOTE | 2019-06-07 00:51 | ED.RN ---
DR BELL AWARE OF CREATININE RESULT.
--- NOTE | 2019-06-07 00:51 | ED.RN ---
CRITICAL LAB VALUE RECEIVED FROM LAB. CREATININE 12.6. DR. BELL NOTIFIED.
[2019-06-07 02:08] VITALS: BP 136/73; PULSE 102; RESP 21
== END 2019-06-07 02:14 | disposition home or self-care (01) ==
PROVIDERS: Emergency Provider Emergency Medicine; Family Provider Internal Medicine; PCP Internal Medicine
DX: R07.9 Chest pain, unspecified (principal); E66.9 Obesity, unspecified; Z99.2 Dependence on renal dialysis
CPT/HCPCS: 36415; 71046; 80048; 83880; 84484; 85025; 85610; 93005; 96374; 99285; A4216

== ENCOUNTER 2019-07-02 17:48 | Emergency (ER) | payer MEDICARE, SELFPAY ==
[2019-07-02] VITALS (8 sets, daily range): BP systolic 101–125; BP diastolic 56–69; PULSE 104–131; RESP 13–19; TEMP 37.1–39.4; O2SAT 97–99; BMI 41.7
--- NOTE | 2019-07-02 18:39 | EKG12_ITS ---
Test Reason : FEVER Blood Pressure : / mmHG Vent. Rate : 126 BPM Atrial Rate : 126 BPM P-R Int : 160 ms QRS Dur : 054 ms QT Int : 294 ms P-R-T Axes : 065 132 046 degrees QTc Int : 425 ms Sinus tachycardia Right axis deviation Low Voltage QRS (Limb Leads) Septal infarct , age undetermined Abnormal ECG Confirmed by ADALGISA STAHL, GOGO ([id number]), film or videotape editor ZURI CHRISTIE ([id number]) on 07/06/2019 10:27:20 AM Referred By: ALEXEY Confirmed By:GOGO DIANA MD
--- NOTE | 2019-07-02 18:45 | RAD_ITS ---
STUDY: X-RAY CHEST REASON FOR EXAM: Male, 39 years old. Fever. Not feeling well since Friday. TECHNIQUE: Single AP portable view of the chest. COMPARISON: June 06, 2019 and September 16, 2018. FINDINGS: The lungs are expanded. There is a vague density at the right lung base which is unchanged from prior examinations and thought to be chronic. No new infiltrate or mass is seen There is no demonstrated pleural abnormality. Normal size heart. Normal mediastinum and michael. Normal visualized pulmonary arteries. Normal visualized aortic arch and descending thoracic aorta. There is dextroscoliosis of the thoracic spine. Normal visualized ribs, clavicles, and shoulders. There is no demonstrated abnormality of the visualized soft tissue structures of the upper abdomen. RAD/Chest 1 View (Portable) IMPRESSION: No acute cardiopulmonary disease or interval change. Electronically Signed: Enrico Foster DO at 19:03 EDT Tel [phone], Service support ,
[2019-07-02] MEDS: Acetaminophen 500 MG Tablet 1000 MG PO (19:26)
--- NOTE | 2019-07-02 19:32 | ED.DCSUM_ITS ---
History of Present Illness Chief Complaint: Fever Informant: Patient Onset: Days Context: Gradual Onset Timing: Intermittent Current Severity: Moderate Maximum Severity: Moderate Narrative: The patient presents to the emergency department fever. Patient has a history of end-stage renal disease. He is on dialysis Friday, Friday, and Friday. He does have a Vas-Cath in his left groin. However, he had a recent graft placed in his right thigh. He has not had to use the dialysis catheter for over 3 weeks and they have been using his right thigh. He states 10 days ago, he had a fever at dialysis. He states that he took some Tylenol the fever went away. He states he does have some generalized malaise. Today, he was at dialysis and the fever started again. They were not accessing his Vas-Cath. He states he just feels generally ill. He denies any shortness of breath. He denies any cough. He just admits to generalized malaise. Prior similar symptoms: No Recent Illness/Hospitalization: No Past Medical History - Allergies and Home Meds Allergies/Adverse Reactions: Allergies No Known Allergies Allergy (Verified 04/30/19 13:50) Primary Care Physician: Pawel Banda MD [Primary Care Provider] - Prior records reviewed: Yes Surgical History: herniorrhaphy, - - aVF x2, catheter placements, right upper extremity aneurysm removed. Smoking Status: Former smoker - Family History Paternal Family History: Family History (Last Updated 01/07/19 @ 14:03 by Misa Robertson) Other Adopted Family History: Reports: - - Patient was adopted and does not know his maternal or paternal family history. Maternal Family History: Family History (Last Updated 01/07/19 @ 14:03 by Misa Robertson) Other Adopted Family History: Reports: - - Patient was adopted and does not know his maternal or paternal family history. Review of Systems General: Reports: Fever, Malaise. Denies: Chills, Sweats Eyes: Denies: Visual changes - bilaterally, Diplopia ENT: Denies: Rhinorrhea, Sore throat Cardiovascular: Denies: Chest pain, Palpitations Respiratory: Denies: Dyspnea, Cough, Dyspnea on exertion Gastrointestinal: Denies: Abdominal pain, Nausea, Vomiting, Diarrhea, Melena, Hematochezia Genitourinary: Denies: Dysuria, Hematuria, Frequency Musculoskeletal: Denies: Back pain, Extremity Pain Skin: Denies: Rash, Wounds Neurological: Denies: Headache, Weakness, Numbness Physical Exam Vital Signs/Narrative: Vital Signs Temp Pulse Resp BP Pulse Ox 07/02/19 19:28 121 H 16 98 07/02/19 19:24 100 F H 07/02/19 19:22 98 07/02/19 17:49 102.9 F H 131 H 18 125/56 H 99 Inital Vital Signs reviewed: Yes General: Well nourished, Well developed, No Acute Distress Head: Normocephalic, Atraumatic Eyes: Perrl, EOMI ENT: Moist mucous membranes, No rhinorrhea Neck: Supple, Nontender Cardiovascular: Regular rate, Regular rhythm, No murmurs Respiratory: No distress, CTA bilaterally, Chest nontender Abdomen: Soft, Nontender, Nondistended, Normal bowel sounds Back: Nontender, Normal Inspection Extremities: Nontender, No edema Skin: Normal color, No rash Neurological: Alert, Oriented x3, Cranial nerves II-XII grossly intact, Normal Strength, Normal Sensation Psychological: Normal affect, Normal Mood Diagnostic/Tx/Re-eval Chest X-Ray - ED: 1 View, Normal, Heart, Lungs, Mediastinum Clinical Impression(s) from Imaging Studies Chest X-Ray 07/02/19 18:45 IMPRESSION: No acute cardiopulmonary disease or interval change. Electronically Signed: Enrico Foster DO at 19:03 EDT Tel [phone], Service support , Abnormal Lab Results 07/02/19 07/02/19 07/02/19 19:28 19:28 19:28 WBC 11.4 H RBC 3.51 L Hgb 10.2 L Hct 33.3 L MCV 94.9 H MCH 29.1 MCHC 30.6 L RDW Std Deviation 57.3 H RDW Coeff of Lance 16.5 H Plt Count 237 MPV 10.7 Immature Gran % (Auto) 1.100 H Neut % (Auto) 83.7 H Lymph % (Auto) 4.7 L [place] % (Auto) 9.2 Eos % (Auto) 1.0 Baso % (Auto) 0.3 Absolute Neuts (auto) 9.5 H Absolute Lymphs (auto) 0.53 L Nucleated RBC % 0 Differential Comment PT 15.6 H INR 1.3 APTT 31.3 Sodium Cancelled Potassium Cancelled Chloride Cancelled Carbon Dioxide Cancelled Anion Gap Cancelled BUN Cancelled Creatinine Cancelled Estim Creat Clear Calc Cancelled Est GFR (MDRD) Af Amer Cancelled Est GFR (MDRD) Non-Af Cancelled BUN/Creatinine Ratio Cancelled Glucose Cancelled Lactic Acid Calcium Cancelled Total Bilirubin Cancelled AST Cancelled ALT Cancelled Alkaline Phosphatase Cancelled Total Protein Cancelled Albumin Cancelled Globulin Cancelled Albumin/Globulin Ratio Cancelled Urine Color Urine Clarity Urine pH Ur Specific [place] U Specif Grav (Refrac) Urine Protein Urine Glucose (UA) Urine Ketones Urine Occult Blood Urine Nitrite Urine Bilirubin Urine Urobilinogen Ur Leukocyte Esterase Urine RBC Urine WBC Ur Squamous Epith Cells Ur Transition Epith Cell Ur Renal Epithelial Cell Calcium Oxalate Crystal Uric Acid Crystals Triple Phos Crystals Other Crystals Amorphous Sediment Urine Bacteria Hyaline Casts Fine Granular Casts Coarse Granular Casts Waxy Casts RBC Casts WBC Casts Urine Mucus Urine Trichomonas Urine Yeast 07/02/19 07/02/19 07/02/19 19:28 19:55 20:32 WBC RBC Hgb Hct MCV MCH MCHC RDW Std Deviation RDW Coeff of Lance Plt Count MPV Immature Gran % (Auto) Neut % (Auto) Lymph % (Auto) [place] % (Auto) Eos % (Auto) Baso % (Auto) Absolute Neuts (auto) Absolute Lymphs (auto) Nucleated RBC % Differential Comment PT INR APTT Sodium 133 L Potassium 4.3 Chloride 95 L Carbon Dioxide 29.0 Anion Gap 9 BUN 34 H Creatinine 7.96 H* Estim Creat Clear Calc 13.12 Est GFR (MDRD) Af Amer 10 L Est GFR (MDRD) Non-Af 8 L BUN/Creatinine Ratio 4.3 L Glucose 93 Lactic Acid 1.5 Calcium 8.4 L Total Bilirubin 0.50 AST 15 ALT 18 Alkaline Phosphatase 80 Total Protein 8.0 Albumin 3.0 L Globulin 5.0 H Albumin/Globulin Ratio 0.6 L Urine Color Cancelled Urine Clarity Cancelled Urine pH Cancelled Ur Specific [place] Cancelled U Specif Grav (Refrac) Cancelled Urine Protein Cancelled Urine Glucose (UA) Cancelled Urine Ketones Cancelled Urine Occult Blood Cancelled Urine Nitrite Cancelled Urine Bilirubin Cancelled Urine Urobilinogen Cancelled Ur Leukocyte Esterase Cancelled Urine RBC Cancelled Urine WBC Cancelled Ur Squamous Epith Cells Cancelled Ur Transition Epith Cell Cancelled Ur Renal Epithelial Cell Cancelled Calcium Oxalate Crystal Cancelled Uric Acid Crystals Cancelled Triple Phos Crystals Cancelled Other Crystals Cancelled Amorphous Sediment Cancelled Urine Bacteria Cancelled Hyaline Casts Cancelled Fine Granular Casts Cancelled Coarse Granular Casts Cancelled Waxy Casts Cancelled RBC Casts Cancelled WBC Casts Cancelled Urine Mucus Cancelled Urine Trichomonas Cancelled Urine Yeast Cancelled - Rhythm Strip Rhythm Strip: Sinus Rhythm Rate: 100 Ectopy: None - EKG Initial EKG Interpretation: Sinus Rhythm, No Acute Injury Pattern Prior: Unchanged - Medical Decision Making Patient presents with fever. He is in his right leg is not erythematous. He has no tenderness. Palpable thrill. The site of his indwelling Vas-Cath on the left is not erythematous. There is no purulence. Septic work-up was pursued. X-ray was unremarkable. There is no evidence of acute infectious process. EKG was sinus tachycardia. Screening labs do show a mild leukocytosis but were otherwise unremarkable. His lactic was negative. I did discuss the patient with Dr. Griffin on-call for nephrology. He did agree with plan for IV antibiotics. I was able to pull a culture off of his indwelling Vas-Cath. The patient was treated with vancomycin and Zosyn. He is feeling improved. He has not had any further fever here. I do feel this point he is safe for outpatient follow-up. They are going to follow his cultures at dialysis and resume antibiotics. He was counseled to return. Impression 1. Fever ED Disposition - Plan for ED Patient: Instructions: FEBRILE ILLNESS, Uncertain Cause (Adult) Referrals: Pawel Banda MD [Primary Care Provider] -
[2019-07-02 19:48] LABS: Absolute Lymphocyte Count 0.53 X10^3/uL (0.83-4.51); Absolute Neutrophil Count 9.5 X10^3/uL (2.0-7.7); Basophil# 0.03 X10^3/uL; Basophil% 0.3 % (0-1); Eosinophil# 0.11 X10^3/uL; Hematocrit 33.3 % (40-54); Hemoglobin 10.2 g/dL (13.0-16.5); Lymphocyte # 0.53 X10^3/ul (4.0); Lymphocyte % 4.7 % (19-41); Mean Corp Hgb Conc 30.6 g/dL (32-36); Mean Corpuscular Hgb 29.1 pg (27.0-32.0); Mean Corpuscular Volume 94.9 fL (80-94); Mean Platelet Vol. 10.7 fl (6.2-12.0); Monocyte# 1.04 X10^3/uL; Monocyte% 9.2 % (0-10); NRBC Flagged by Analyzer 0 % (0-5); Neutrophil # 9.51 X10^3/uL (2.7-7.7); Neutrophil % 83.7 % (47-70); POSITIVE DIFFERENTIAL YES; Platelet Count 237 K/mm3 (150-450); RBC Distribution Width CV 16.5 % (11.6-14.6); RBC Distribution Width SD 57.3 fl (35.1-43.9); Red Blood Count 3.51 M/mm3 (4.6-6.2); White Blood Count 11.4 K/mm3 (4.4-11.0)
[2019-07-02 19:51] LABS: Differential Indicated SCAN CRITERIA MET
[2019-07-02 19:57] LABS: International Normalized Ratio 1.3; Prothrombin Time (Protime)PT. 15.6 SECONDS (11.7-14.9)
[2019-07-02 19:58] LABS: Partial Thromboplast Time 31.3 Seconds (24.1-36.2)
[2019-07-02 20:17] LABS: Lactic Acid 1.5 mmol/L (0.4-2.0)
[2019-07-02] MEDS: Morphine 4 MG/ML Syringe IV (20:39)
[2019-07-02 21:10] LABS: ALB/GLOB Ratio 0.6 RATIO (0.9-2.4); AST(SGOT) 15 U/L (15-37); Alanine Aminotransfer ALT/SGPT 18 U/L (16-61); Alkaline Phosphatase 80 U/L (45-117); Anion Gap 9 (5-15); BUN 34 mg/dL (7-18); BUN/Creat Ratio 4.3 RATIO (10-20); Calcium,Total 8.4 mg/dL (8.5-10.1); Chloride 95 mmol/L (98-107); Creatinine, Serum 7.96 mg/dL (0.70-1.30); EST Glomerular Filtration Rate 8 mL/min (>60); Est Glom Filt Rate - Afr Amer 10 mL/min (>60); Estimated Creatinine Clearance 13.12 ml/min; Glucose 93 mg/dL (74-106); Potassium 4.3 mmol/L (3.5-5.1); Sodium Level 133 mmol/L (136-145)
--- NOTE | 2019-07-02 21:11 | ED.RN ---
RECEIVED CRITICAL LAB VALUE, AWARE.
[2019-07-02] MEDS: HYDROcodone Bitartrate/Apap 5/325 Tablet PO (23:02)
[2019-07-03 01:27] VITALS: BP 99/58; PULSE 104; RESP 20; O2SAT 100
--- NOTE | 2019-07-03 03:21 | ED.RN ---
Lab called back with gram positive rods from tunneled cath, left groin sample. Dr. Galo was consulted. No new orders as pt has had Vanc and Zosyn which will last for days and cover this bacteria. Dr. Galo stated Nephrology was going to follow up with patient on Friday at dialysis.
== END 2019-07-03 01:46 | disposition home or self-care (01) ==
LOC: ED 19:04
PROVIDERS: Emergency Provider Emergency Medicine; Family Provider Internal Medicine; PCP Internal Medicine
DX: R50.9 Fever, unspecified (principal); N18.6 End stage renal disease; Z99.2 Dependence on renal dialysis; Z87.891 Personal history of nicotine dependence
CPT/HCPCS: 36415; 71045; 80053; 83605; 85025; 85610; 85730; 87040; 87077; 93005; 96365; 96366; 96367; 96375; 99285; J7040; A4216

== ENCOUNTER 2019-07-04 22:30 | Inpatient (IN) | payer MEDICARE, SELFPAY ==
[2019-07-02 17:49] VITALS: BMI 41.7
[2019-07-04 22:30] VITALS: BP 157/103; PULSE 119; RESP 20; TEMP 36.7; O2SAT 89; BMI 40.8
--- NOTE | 2019-07-04 22:48 | EKG12_ITS ---
Test Reason : SOB Blood Pressure : / mmHG Vent. Rate : 107 BPM Atrial Rate : 107 BPM P-R Int : 182 ms QRS Dur : 064 ms QT Int : 336 ms P-R-T Axes : 058 112 044 degrees QTc Int : 448 ms Sinus tachycardia Possible Left atrial enlargement Right axis deviation Anteroseptal infarct , age undetermined Abnormal ECG Confirmed by TAMERA JOHNS ([id number]), graphic editor MIKI PAULINO ([id number]) on 07/12/2019 3:50:42 PM Referred By: ARABELLA Confirmed By:TAMERA JOHNS
--- NOTE | 2019-07-04 22:50 | ED.VISSUMM ---
- ER Visit Summary Date of Service: 07/04/19 Chief Complaint: Shortness of breath, nausea, vomiting History of Present Illness: The patient is a 39 M who presents with shortness of breath that is been getting worse over the past 2 days. Patient states he also started having some nausea and vomiting today. Patient states he has some pressure over his chest and abdomen. Patient is a history of end-stage renal disease and is on dialysis Friday, Friday, and Friday. Patient states that he came to the emergency department Friday after dialysis because of a fever. Patient states his work-up at that time was unremarkable. Patient was discharged home. Patient states he still felt like he was short of breath when he was discharged. Patient admits to a cough. Patient states his fever resolved when he was here in the emergency department 2 days ago. Patient denies any fever since that time. Patient does admit to a mild headache. Physical Examination: Vital signs showed a blood pressure 157/103, heart rate of 119, respiratory rate of 20, pulse ox 89% on room air. Patient is afebrile. Oral mucosa is pink and moist. Neck is supple. Trachea is midline. There is no JVD noted. Heart was regular and tachycardic. Lungs were clear bilaterally. Abdomen was soft. Bowel sounds are normal. There is no tenderness. Extremities were intact. There is no calf tenderness. There is no lower extremity edema. Cranial nerves II through XII are intact. There are no focal motor or sensory deficits noted. Test Results: CBC showed anemia with hemoglobin of 9.9. Comprehensive metabolic profile showed an elevated creatinine of 12. INR was normal at 1.3. BNP was 178. Lactate was 0.9. EKG showed sinus tachycardia with a rate of 107. There are no acute ST or T wave changes. This was unchanged compared to previous EKG dated 06/06/2019. PA and lateral chest x-ray was obtained. There is progressing alveolar disease on the right. There is evolving left midlung atelectasis. Emergency Department Course and Treatment: Patient was given morphine and Zofran here. Blood cultures were obtained on his prior visit on 07/02/2019. Patient was started on Levaquin here. Since the patient has hypoxia with a pulse oximeter of 89% on room air, case was discussed with the hospitalist. He will admit the patient to his service. Patient understood and was agreeable with the plan. All questions were answered. Disposition: Admit to hospital Impression: 1. Sepsis 2. Community-acquired pneumonia This note was generated with [employer] dictation software. It may contain incorrect words, spelling, and punctuation that were not noted in review of the chart prior to signing ED Disposition - Plan for ED Patient: Disposition: Acute Care Hospital [facility] Diagnosis: Sepsis, Community acquired pneumonia Referrals: Pawel Banda MD [Primary Care Provider] -
[2019-07-04 22:55] VITALS: O2SAT 93
--- NOTE | 2019-07-04 23:10 | RAD_ITS ---
STUDY: X-RAY CHEST REASON FOR EXAM: Male, 39 years old. Shortness of breath TECHNIQUE: Frontal and lateral views of the chest. COMPARISON: None. FINDINGS: 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 Evolving left midlung atelectasis. There is no demonstrated pleural abnormality. Stable cardiomediastinal silhouette. Normal mediastinum and michael. Normal visualized pulmonary arteries. Normal visualized aortic arch and descending thoracic aorta. There is a dextroscoliosis of the thoracic spine. Normal visualized ribs, clavicles, and shoulders. Stable catheter projecting over the upper abdomen. RAD/Chest PA and Lateral IMPRESSION: 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 Evolving left midlung atelectasis. Electronically Signed: Yogesh Dunn MD at 23:34 EDT Tel , Service support ,
[2019-07-04 23:38] VITALS: O2SAT 93
[2019-07-04 23:44] LABS: Absolute Lymphocyte Count 0.88 X10^3/uL (0.83-4.51); Absolute Neutrophil Count 4.5 X10^3/uL (2.0-7.7); Basophil# 0.05 X10^3/uL; Basophil% 0.8 % (0-1); Eosinophil# 0.18 X10^3/uL; Eosinophils% 2.8 % (0-5); Hematocrit 32.8 % (40-54); Hemoglobin 9.9 g/dL (13.0-16.5); Lymphocyte # 0.88 X10^3/ul (4.0); Lymphocyte % 13.7 % (19-41); Mean Corp Hgb Conc 30.2 g/dL (32-36); Mean Corpuscular Hgb 28.8 pg (27.0-32.0); Mean Corpuscular Volume 95.3 fL (80-94); Mean Platelet Vol. 10.4 fl (6.2-12.0); Monocyte# 0.78 X10^3/uL; Monocyte% 12.1 % (0-10); NRBC Flagged by Analyzer 0 % (0-5); Platelet Count 229 K/mm3 (150-450); RBC Distribution Width CV 16.8 % (11.6-14.6); RBC Distribution Width SD 58.4 fl (35.1-43.9); Red Blood Count 3.44 M/mm3 (4.6-6.2); White Blood Count 6.4 K/mm3 (4.4-11.0)
[2019-07-05] VITALS (20 sets, daily range): BP systolic 99–154; BP diastolic 42–88; PULSE 90–109; RESP 18–28; TEMP 36.1–37; O2SAT 95–100; BMI 43.2
[2019-07-05 00:22] LABS: International Normalized Ratio 1.3; Prothrombin Time (Protime)PT. 15.7 SECONDS (11.7-14.9)
[2019-07-05 00:23] LABS: Partial Thromboplast Time 31.5 Seconds (24.1-36.2)
[2019-07-05 00:38] LABS: Lactic Acid 0.9 mmol/L (0.4-2.0)
--- NOTE | 2019-07-05 00:46 | ED.RN ---
LAB CALLED WITH CRITICAL LAB RESULTS. CREATINE LEVEL 12.8. DR. BELL MADE AWARE NO NEW ORDERS AT THIS TIME
[2019-07-05] MEDS: Ondansetron 4 MG/2 ML Vial IV (00:49)
[2019-07-05] MEDS: Morphine 4 MG/ML Syringe IV (00:51)
[2019-07-05] MEDS: levoFLOXacin IV 750 MG/150 ML BAG 100 MG IV (01:01)
[2019-07-05 01:10] LABS: ALB/GLOB Ratio 0.7 RATIO (0.9-2.4); AST(SGOT) 14 U/L (15-37); Alanine Aminotransfer ALT/SGPT 14 U/L (16-61); Albumin, Serum 3.2 g/dL (3.2-5.0); Alkaline Phosphatase 84 U/L (45-117); Anion Gap 13 (5-15); BUN 67 mg/dL (7-18); BUN/Creat Ratio 5.2 RATIO (10-20); Calcium,Total 8.4 mg/dL (8.5-10.1); Chloride 97 mmol/L (98-107); EST Glomerular Filtration Rate 5 mL/min (>60); Est Glom Filt Rate - Afr Amer 6 mL/min (>60); Estimated Creatinine Clearance 8.16 ml/min; Globulin 4.5 g/dL (2.2-4.2); Glucose 95 mg/dL (74-106); Potassium 4.8 mmol/L (3.5-5.1); Protein, Total 7.7 g/dL (6.4-8.2); Sodium Level 139 mmol/L (136-145)
--- NOTE | 2019-07-05 01:43 | PCM.HP.STD ---
Problem List (1) Sepsis Status: Acute (2) Community acquired pneumonia Status: Acute (3) ESRD (end stage renal disease) Status: Chronic Comment: Due to hypertension, On hemodialysis, TTS, followed by Dr. Goncalves (4) Morbidly obese Status: Chronic (5) Sleep apnea Status: Chronic Qualifiers: Sleep apnea type: unspecified type Qualified Code(s): G47.30 - Sleep apnea, unspecified History of Present Illness Date of Admission: 07/05/19 Chief Complaint: shortness of breath The patient is a 39 year old M with a significant history of plasma A. fib; end-stage renal disease; hypertension; sleep apnea; who presented to emergency department with 1 week history of progressively worsening shortness of breath. Patient with symptoms is chills which has not resolved. Also patient has been having a fever since last week although on the day of presentation he did not have a fever. He reports a fever with temperatures of 103 at 104 Fahrenheit. At the emergency department on room air his oxygen saturation was low so patient was considered for admission. And was at a hospital 2 days ago because of a fever. He was given antibiotics at the hospital and discharged home without any antibiotics. Three sets of blood culture was drawn at that time (07/02/2019). One aerobic bottle showed gram-variable rods. This was a result from a tunneled catheter of left groin. Past Medical History Past Medical History (Chronic Problems): Chronic Problems (Last Reviewed 07/05/19 @ 03:05 by Lg Krishnan MD) PAF (paroxysmal atrial fibrillation) (Chronic) Dialysis patient (Chronic) Left shoulder pain (Chronic) Anemia of chronic disorder (Chronic) History of bacterial endocarditis (Chronic) Hypertension (Chronic) ESRD (end stage renal disease) (Chronic) Due to hypertension, On hemodialysis, TTS, followed by Dr. 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) Mitral valve disease (Chronic) Mitral valve stenosis (Chronic) Sleep apnea (Chronic) Hearing loss (Chronic) in both ears Medical History: Medical History (Last Reviewed 07/05/19 @ 03:05 by Lg Krishnan MD) Mitral valve stenosis (Chronic) I05.0 Sleep apnea (Chronic) G47.30 History of blood clots (Inactive) Z86.718 fistula developed a clot and had to be surgically removed Hearing loss (Chronic) H91.90 in both ears Afib I48.91 ESRD (end stage renal disease) N18.6 Anemia of chronic disease D63.8 HTN (hypertension) I10 Allergies No Known Allergies Allergy (Verified 07/04/19 23:40) Home Medications: Ambulatory Orders Medication Instructions Recorded cinacalcet 60 mg tablet 60 mg PO MOWEFR 10/10/17 Apixaban [Eliquis] 2.5 mg PO BID 12/02/18 Ferric Citrate [Auryxia] 210 mg PO TIDCM 02/05/19 Metoprolol Tartrate [Lopressor 25 mg PO BID 02/05/19 (beta zbigniew)] Surgical History: Surgical History (Last Reviewed 07/05/19 @ 03:05 by Lg Krishnan MD) history of cather replacement Left Groin 04/21/19 Surgical History: herniorrhaphy, - - aVF x2, catheter placements, right upper extremity aneurysm removed. Psychiatric History: No pertinent psych hx Lives: With Family Smoking Status: Former smoker - *Family History Paternal Family History: Family History (Last Reviewed 07/05/19 @ 03:05 by Lg Krishnan MD) Other Adopted History Items: - - Patient was adopted and does not know his maternal or paternal family history. Maternal Family History: Family History (Last Reviewed 07/05/19 @ 03:05 by Lg Krishnan MD) Other Adopted History Items: - - Patient was adopted and does not know his maternal or paternal family history. Review of Systems Constitutional: Reports: Chills - recent, Fever - Recent. Denies: Weight Change HEENT: Denies: Head Aches, Sinus Congestion, Sinus Drainage Cardiovascular: Denies: Chest Pain, Palpitations Respiratory: Reports: Cough, Shortness of breath at rest, Shortness of breath upon exertion, Sputum production Gastrointestinal: Reports: Vomiting. Denies: Abdominal Pain Genitourinary: Denies: Dysuria Musculoskeletal: Denies: Joint Pain, Joint Tenderness Skin: Denies: Rash, Wounds Neurological: Denies: Numbness, Tingling, Focal weakness Psychiatric: Denies: Anxiety, Depression, Homicidal Ideations, Suicidal Ideations Hematologic/ Lymphatic: Denies: Easy Bruising, Easy Bleeding VTE Information - Inpt Only VTE Present on Admission: No VTE Mechan Device Prophylaxis: None VTE Pharm Prophylaxis ordered?: No Reason prophylaxis not ordered:: Treatment Not Indicated - Continue Eliquis for ASrinivasan fib Patient Problems: Active and Suspected Problems (Last Reviewed 07/05/19 @ 03:05 by Lg Krishnan MD) Sepsis (Acute) Community acquired pneumonia (Acute) - Physical Exam General: Alert, Oriented x3, Cooperative HEENT: Atraumatic, PERRLA, EOMI, Normocephalic Neck: Supple, No JVD, Negative Carotid Bruits Lungs: Clear to auscultation, Normal air movement, No rhonchi, No wheeze, No rales, Short of Breath, Tachypneic Cardiovascular: Normal S1, Normal S2, No murmurs, Tachycardic Abdomen: Bowel Sounds Present, Soft, Non Tender, Obese Extremities: No edema, Capillary Refill Less than 3 Seconds Skin: No rashes, No breakdown, - - Dialysis catheter at Left groin, no erythema, no swelling; no tenderness around the sites. Dialysis shunt/graft at right with thrill and bruit no swelling, no tenderness or no erythema around site Musculoskeletal: No Tenderness to Palpation of Joints or Extremities Neurological: Cranial nerves II-XII grossly intact Psych/Mental Status: Normal Affect, Appropriate Vital Signs Temp Pulse Resp BP Pulse Ox 98.1 F 109 H 28 H 157/103 H 97 07/04/19 22:30 07/05/19 00:30 07/05/19 00:30 07/04/19 22:30 07/05/19 00:30 Oxygen Flow Rate (L/min) 3 Oxygen Delivery Method Nasal Cannula Weight: 129.274 kg Body Mass Index (BMI) 40.8 Laboratory Tests Past 24 Hrs 07/04/19 07/04/19 07/04/19 00:00 00:00 00:00 WBC RBC Hgb Hct MCV MCH MCHC RDW Std Deviation RDW Coeff of Lance Plt Count MPV Immature Gran % (Auto) Neut % (Auto) Lymph % (Auto) [place] % (Auto) Eos % (Auto) Baso % (Auto) Absolute Neuts (auto) Absolute Lymphs (auto) Nucleated RBC % PT 15.7 H INR 1.3 APTT 31.5 Sodium Potassium Chloride Carbon Dioxide Anion Gap BUN Creatinine Estim Creat Clear Calc Est GFR (MDRD) Af Amer Est GFR (MDRD) Non-Af BUN/Creatinine Ratio Glucose Lactic Acid 0.9 Calcium Total Bilirubin AST ALT Alkaline Phosphatase Troponin I B-Natriuretic Peptide 178.0 H Total Protein Albumin Globulin Albumin/Globulin Ratio 07/04/19 07/04/19 07/05/19 23:30 23:30 00:00 WBC 6.4 RBC 3.44 L Hgb 9.9 L Hct 32.8 L MCV 95.3 H MCH 28.8 MCHC 30.2 L RDW Std Deviation 58.4 H RDW Coeff of Lance 16.8 H Plt Count 229 MPV 10.4 Immature Gran % (Auto) 0.600 Neut % (Auto) 70.0 Lymph % (Auto) 13.7 L [place] % (Auto) 12.1 H Eos % (Auto) 2.8 Baso % (Auto) 0.8 Absolute Neuts (auto) 4.5 Absolute Lymphs (auto) 0.88 Nucleated RBC % 0 PT INR APTT Sodium Cancelled 139 Potassium Cancelled 4.8 Chloride Cancelled 97 L Carbon Dioxide Cancelled 29.0 Anion Gap Cancelled 13 BUN Cancelled 67 H Creatinine Cancelled 12.80 H* Estim Creat Clear Calc Cancelled 8.16 Est GFR (MDRD) Af Amer Cancelled 6 L Est GFR (MDRD) Non-Af Cancelled 5 L BUN/Creatinine Ratio Cancelled 5.2 L Glucose Cancelled 95 Lactic Acid Calcium Cancelled 8.4 L Total Bilirubin Cancelled 0.40 AST Cancelled 14 L ALT Cancelled 14 L Alkaline Phosphatase Cancelled 84 Troponin I Cancelled < 0.015 B-Natriuretic Peptide Total Protein Cancelled 7.7 Albumin Cancelled 3.2 Globulin Cancelled 4.5 H Albumin/Globulin Ratio Cancelled 0.7 L Assessment/Plan All Active Problems (Last Reviewed 07/05/19 @ 03:05 by Lg Krishnan MD) Sepsis (Acute) Community acquired pneumonia (Acute) The patient is a 39 year old M with a significant history of plasma A. fib; end-stage renal disease; hypertension; sleep apnea; who presented to emergency department with 1 week history of progressively worsening shortness of breath; chills; fever; tachycardia; tachypnea: Hypoxia and radiographic evidence of progressing alveolar disease on the right and evolving left midlung atelectasis consistent with sepsis secondary to community-acquired pneumonia and atelectasis. Sepsis secondary to community acquired pneumonia Lactic acid: 0.9 BNP was 178 RR ~18-26 Heart rate 98-109 Oxygen saturation: 88-89 on room air Blood cultures were obtained on 07/02/2019. Repeat blood culture from dialysis catheter which had returned positive (preliminary results). Other blood cultures are pending Chest x-ray: Showed progressing alveolar disease on the right. Evolving left midlung atelectasis. Chest x-ray was independently reviewed and agree with radiologist interpretation. Review of old records: Chest x-ray on 07/02/2019 was interpreted as no acute disease but at hindsight there was some developing opacities. This explains why radiologist is interpreting current chest x-ray as progressing alveolar disease. Respiratory Gram stain and culture ordered Antibiotics: Given Levaquin at ED. Will continue patient on ceftriaxone and azithromycin Albuterol as needed Legionella antigen screen and Strep antigen ordered Chest physiotherapy ordered Atelectasis Incentives parameter ordered Positive blood culture from dialysis catheter Patient actually thought that his fever might have been from dialysis catheter. However he does not look infected. We will repeat blood cultures from that his dialysis catheter. Atrial fibrillation On presentation patient was in sinus tach Metoprolol continued Eliquis continued Anemia of kidney disease Iron supplementation continued End stage renal disease on dialysis (Friday, Wednesdays, Fridays) Primary refractory manager is Dr. Melendez. Erik nephrology consult. Renal diet with low phosphorus Cinacalcet continued Sleep apnea On home CPAP; continued. Bleed oxygen in to maintain oxygen saturation more than 92%. Hypertension On presentation his blood pressure was not within goal Metoprolol continued Trend blood pressure and adjust blood pressure medication if necessary. DVT Prophylaxis Not indicated since patient is on Eliquis for A. fib Code Visit Inpatient E&M: 07669 Init Hosp L3
[2019-07-05] MEDS: Ibuprofen 400 MG Tablet 800 MG PO (04:22)
[2019-07-05] MEDS: Ceftriaxone 1 GM/50 ML BAG IV ×2 (04:22→23:21)
[2019-07-05] MEDS: Albuterol 2.5 MG/3 ML VIAL.NEB. INHALATION (05:19)
[2019-07-05 06:45] LABS: Absolute Lymphocyte Count 1.03 X10^3/uL (0.83-4.51); Absolute Neutrophil Count 4.5 X10^3/uL (2.0-7.7); Basophil# 0.04 X10^3/uL; Basophil% 0.6 % (0-1); Eosinophil# 0.15 X10^3/uL; Eosinophils% 2.3 % (0-5); Hematocrit 31.2 % (40-54); Hemoglobin 9.5 g/dL (13.0-16.5); Lymphocyte # 1.03 X10^3/ul (4.0); Lymphocyte % 15.7 % (19-41); Mean Corp Hgb Conc 30.4 g/dL (32-36); Mean Corpuscular Hgb 28.9 pg (27.0-32.0); Mean Corpuscular Volume 94.8 fL (80-94); Mean Platelet Vol. 9.9 fl (6.2-12.0); Monocyte# 0.73 X10^3/uL; Monocyte% 11.2 % (0-10); NRBC Flagged by Analyzer 0 % (0-5); Neutrophil # 4.54 X10^3/uL (2.7-7.7); Neutrophil % 69.4 % (47-70); Platelet Count 225 K/mm3 (150-450); RBC Distribution Width CV 16.3 % (11.6-14.6); RBC Distribution Width SD 57.1 fl (35.1-43.9); Red Blood Count 3.29 M/mm3 (4.6-6.2); White Blood Count 6.5 K/mm3 (4.4-11.0)
[2019-07-05] MEDS: APIXABAN 2.5 MG TABLET PO ×2 (08:23→23:34)
[2019-07-05] MEDS: guaiFENesin 1,200 MG Tablet 1200 MG PO ×2 (08:23→23:34)
[2019-07-05] MEDS: Aspirin E.C. 81 MG Tablet PO (08:23)
[2019-07-05] MEDS: Metoprolol Tartrate 25 MG Tablet PO ×2 (08:23→23:34)
[2019-07-05] MEDS: Cinacalcet HCl 30 MG Tablet 60 MG PO (08:23)
--- NOTE | 2019-07-05 09:02 | PCM.PN.HOSP ---
Patient Problems: Active and Suspected Problems (Last Reviewed 07/05/19 @ 03:05 by Lg Krishnan MD) Sepsis (Acute) Community acquired pneumonia (Acute) Subjective: Patient seen and examined. He was admitted in BLE hours of 07/05/2019 with a complaint of shortness of breath and had also complained of fever in the week prior to admission. He had been seen in the hospital 2 days prior to admission was given antibiotics in the hospital. He was however discharged home with no antibiotics. 1 out of 3 sets of blood cultures drawn at the time of him being seen in the ED on 07/02/2019 grew gram variable rods. Chest x-ray on admission showed pneumonia. He is being managed for sepsis due to community-acquired pneumonia and is on IV ceftriaxone and azithromycin. Vitals/I&O's: Vital Signs Temp Pulse Resp BP Pulse Ox 98.6 F 104 H 20 H 129/88 H 97 07/05/19 04:27 07/05/19 08:23 07/05/19 05:19 07/05/19 04:27 07/05/19 08:01 Oxygen Flow Rate (L/min) 2 Oxygen Delivery Method Nasal Cannula Weight: 301 lb 2.423 oz Body Mass Index (BMI) 43.2 Intake and Output for Last 24 Hours 07/03/19 07/04/19 07/05/19 23:59 23:59 23:59 Intake Total 865 / 865 Balance 865 / 865 General: Alert, Oriented x3, Cooperative, No apparent distress HEENT: Atraumatic, PERRLA, EOMI, Normocephalic Oral: Moist Mucosa Neck: Supple, No JVD, Negative Carotid Bruits Lungs: Clear to auscultation, Normal air movement, No rhonchi, No wheeze, No rales Cardiovascular: Regular rate, Regular Rhythm, Normal S1, Normal S2, No murmurs Abdomen: Bowel Sounds Present, Soft, Non Tender, Non-Distended, No Hepato-splenomegaly Extremities: No clubbing, No cyanosis, No edema, Capillary Refill Less than 3 Seconds Skin: No rashes, No breakdown Musculoskeletal: No Tenderness to Palpation of Joints or Extremities, - - AV fistula with palpable thrill in right groin Neurological: Cranial nerves II-XII grossly intact, Neuro grossly intact, Motor Exam 5/5 strength throughout Psych/Mental Status: Normal Affect, Appropriate, Alert and oriented to time, place, person, mood and affect Laboratory Results 07/04/19 00:00: PT 15.7 H, INR 1.3, APTT 31.5 07/04/19 00:00: B-Natriuretic Peptide 178.0 H 07/04/19 00:00: Lactic Acid 0.9 07/04/19 23:30: WBC 6.4, RBC 3.44 L, Hgb 9.9 L, Hct 32.8 L, MCV 95.3 H, MCH 28.8, MCHC 30.2 L, RDW Std Deviation 58.4 H, RDW Coeff of Lance 16.8 H, Plt Count 229, MPV 10.4, Immature Gran % (Auto) 0.600, Neut % (Auto) 70.0, Lymph % (Auto) 13.7 L, [place] % (Auto) 12.1 H, Eos % (Auto) 2.8, Baso % (Auto) 0.8, Absolute Neuts (auto) 4.5, Absolute Lymphs (auto) 0.88, Nucleated RBC % 0 07/04/19 23:30: Sodium Cancelled, Potassium Cancelled, Chloride Cancelled, Carbon Dioxide Cancelled, Anion Gap Cancelled, BUN Cancelled, Creatinine Cancelled, Estim Creat Clear Calc Cancelled, Est GFR (MDRD) Af Amer Cancelled, Est GFR (MDRD) Non-Af Cancelled, BUN/Creatinine Ratio Cancelled, Glucose Cancelled, Calcium Cancelled, Total Bilirubin Cancelled, AST Cancelled, ALT Cancelled, Alkaline Phosphatase Cancelled, Troponin I Cancelled, Total Protein Cancelled, Albumin Cancelled, Globulin Cancelled, Albumin/Globulin Ratio Cancelled 07/05/19 00:00: Sodium 139, Potassium 4.8, Chloride 97 L, Carbon Dioxide 29.0, Anion Gap 13, BUN 67 H, Creatinine 12.80 H*, Estim Creat Clear Calc 8.16, Est GFR (MDRD) Af Amer 6 L, Est GFR (MDRD) Non-Af 5 L, BUN/Creatinine Ratio 5.2 L, Glucose 95, Calcium 8.4 L, Total Bilirubin 0.40, AST 14 L, ALT 14 L, Alkaline Phosphatase 84, Troponin I < 0.015, Total Protein 7.7, Albumin 3.2, Globulin 4.5 H, Albumin/Globulin Ratio 0.7 L 07/05/19 06:18: WBC 6.5, RBC 3.29 L, Hgb 9.5 L, Hct 31.2 L, MCV 94.8 H, MCH 28.9, MCHC 30.4 L, RDW Std Deviation 57.1 H, RDW Coeff of Lance 16.3 H, Plt Count 225, MPV 9.9, Immature Gran % (Auto) 0.800, Neut % (Auto) 69.4, Lymph % (Auto) 15.7 L, [place] % (Auto) 11.2 H, Eos % (Auto) 2.3, Baso % (Auto) 0.6, Absolute Neuts (auto) 4.5, Absolute Lymphs (auto) 1.03, Nucleated RBC % 0 Diagnostic Data Chest X-Ray 07/04/19 23:10 IMPRESSION: 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 Evolving left midlung atelectasis. Electronically Signed: Yogesh Dunn MD at 23:34 EDT Tel , Service support , Current Medications Acetaminophen (Tylenol) 650 mg PO Q6H PRN PRN PRN Reason: Mild Pain (1-3)/Temp > 100.7 F Albuterol Sulfate (Ventolin Aerosols) 2.5 mg INHALATION Q2H PRN PRN PRN Reason: Shortness of Breath/Wheezing Last Admin: 07/05/19 05:19 Dose: 2.5 mg Documented by: Apixaban (Eliquis) 2.5 mg PO BID [facility] Last Admin: 07/05/19 08:23 Dose: 2.5 mg Documented by: Aspirin (Ecotrin) 81 mg PO DAILY@0800 [facility] Last Admin: 07/05/19 08:23 Dose: 81 mg Documented by: Atorvastatin Calcium (Lipitor) 80 mg PO QHS [facility] Cinacalcet (Sensipar) 60 mg PO MoWeFr@0800 [facility] Last Admin: 07/05/19 08:23 Dose: 60 mg Documented by: Dextrose (D50w Syringe) 0 gm IV X1 PRN; Protocol PRN Reason: Hypoglycemia Glucagon () 1 mg IM .X1 PRN PRN Reason: Hypoglycemia Guaifenesin (Mucinex) 1,200 mg PO BID [facility] Last Admin: 07/05/19 08:23 Dose: 1,200 mg Documented by: Ceftriaxone Sodium (Rocephin) 1 gm in 50 mls @ 100 mls/hr IV Q24@2200 [facility] Last Infusion: 07/05/19 05:03 Dose: Infused Documented by: Azithromycin 500 mg/ Dextrose 255 mls @ 250 mls/hr IV Q24@2200 [facility] Last Infusion: 07/05/19 04:15 Dose: Infused Documented by: Sodium Chloride () 250 mls @ 15 mls/hr IV .[id number] PRN PRN Reason: SALINE FLUSH Metoprolol Tartrate (Lopressor (Beta Yossi)) 25 mg PO BID [facility] Last Admin: 07/05/19 08:23 Dose: 25 mg Documented by: Nutritional Formula (Nepro Carb Steady) 120 ml PO 4X/DAY [facility] Ondansetron HCl (Zofran) 4 mg IV Q8H PRN PRN PRN Reason: NAUSEA/VOMITING Senna/Docusate Sodium (Senokot-S, Skye-Colace) 2 tablet PO BID PRN PRN PRN Reason: Constipation Sodium Chloride () 5 - 15 ml IV UD PRN PRN Reason: SALINE FLUSH Medical Necessity - Tobacco Use Smoking Status: Former smoker Assessment/Plan All Active Problems (Last Reviewed 07/05/19 @ 03:05 by gL Krishnan MD) Sepsis (Acute) Community acquired pneumonia (Acute) 1. Sepsis due to community acquired pneumonia still tachycardic and tachypneic; has no leucocytosis SIRS criteria is 2/4 on IV ceftriaxone and azithromycin blood cultures pending check respiratory panel; doesnt make any urine, so cannot check urine for strep and Legionella CXR showed progressing alveolar disease on the right and evolving left mid lung atelectasis continue chest physiotherapy and breathing treatments 2. Bacteremia blood cultures from 07/02/19 grew Corynebacterium amycolatum (1/2) was from dialysis catheter; [id number] site looks clean repeat blood cultures obtained. will ask ID opinion 3. A. fib: Remains tachycardic though in sinus rhythm. On metoprolol and Eliquis. 4. ESRD: On dialysis Wednesdays and Fridays. Dr. Melendez consulted. 5. Hypertension: fairly controlled. On metoprolol. 6. Sleep apnea: on CPAP qhs DVT prophylaxis: on eliquis Code Visit Inpatient E&M: [id number] Subs Hosp L2
--- NOTE | 2019-07-05 11:58 | CON.PCM_ITS ---
Problem List (1) ESRD (end stage renal disease) Status: Chronic Comment: Due to hypertension, On hemodialysis, TTS, followed by Dr. Goncalves Consultation - Renal 07/05/19 PCP/ Referring MD: Requesting physician: Dr Fernandes Primary care physician: Pawel Banda MD Reason for Consultation:: ESRD - History of Present Illness History of Present Illness: The patient is a 39 year old M well-known to us. End Stage renal disease on hemodialysis. presented with fevers. found to have bacteremia. - Allergies Allergies: Allergies No Known Allergies Allergy (Verified 07/04/19 23:40) - Current Medications Current Medications: Current Medications Acetaminophen (Tylenol) 650 mg PO Q6H PRN PRN PRN Reason: Mild Pain (1-3)/Temp > 100.7 F Albuterol Sulfate (Ventolin Aerosols) 2.5 mg INHALATION Q2H PRN PRN PRN Reason: Shortness of Breath/Wheezing Last Admin: 07/05/19 05:19 Dose: 2.5 mg Documented by: Apixaban (Eliquis) 2.5 mg PO BID [facility] Last Admin: 07/05/19 08:23 Dose: 2.5 mg Documented by: Aspirin (Ecotrin) 81 mg PO DAILY@0800 [facility] Last Admin: 07/05/19 08:23 Dose: 81 mg Documented by: Atorvastatin Calcium (Lipitor) 80 mg PO QHS [facility] Cinacalcet (Sensipar) 60 mg PO MoWeFr@0800 [facility] Last Admin: 07/05/19 08:23 Dose: 60 mg Documented by: Dextrose (D50w Syringe) 0 gm IV X1 PRN; Protocol PRN Reason: Hypoglycemia Glucagon () 1 mg IM .X1 PRN PRN Reason: Hypoglycemia Guaifenesin (Mucinex) 1,200 mg PO BID [facility] Last Admin: 07/05/19 08:23 Dose: 1,200 mg Documented by: Ceftriaxone Sodium (Rocephin) 1 gm in 50 mls @ 100 mls/hr IV Q24@2200 [facility] Last Infusion: 07/05/19 05:03 Dose: Infused Documented by: Azithromycin 500 mg/ Dextrose 255 mls @ 250 mls/hr IV Q24@2200 [facility] Last Infusion: 07/05/19 04:15 Dose: Infused Documented by: Sodium Chloride () 250 mls @ 15 mls/hr IV .[id number] PRN PRN Reason: SALINE FLUSH Metoprolol Tartrate (Lopressor (Beta Yossi)) 25 mg PO BID [facility] Last Admin: 07/05/19 08:23 Dose: 25 mg Documented by: Nutritional Formula (Nepro Carb Steady) 120 ml PO 4X/DAY [facility] Last Admin: 07/05/19 10:30 Dose: Not Given Documented by: Ondansetron HCl (Zofran) 4 mg IV Q8H PRN PRN PRN Reason: NAUSEA/VOMITING Senna/Docusate Sodium (Senokot-S, Skye-Colace) 2 tablet PO BID PRN PRN PRN Reason: Constipation Sodium Chloride () 5 - 15 ml IV UD PRN PRN Reason: SALINE FLUSH - Past Medical History Past Medical History (Chronic Problems): Chronic Problems (Last Reviewed 07/05/19 @ 03:05 by Lg Krishnan MD) PAF (paroxysmal atrial fibrillation) (Chronic) Dialysis patient (Chronic) Left shoulder pain (Chronic) Anemia of chronic disorder (Chronic) History of bacterial endocarditis (Chronic) Hypertension (Chronic) ESRD (end stage renal disease) (Chronic) Due to hypertension, On hemodialysis, TTS, followed by Dr. 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 - Social History Smoking Status: Former smoker - Family History Paternal Family History: Family History (Last Reviewed 07/05/19 @ 03:05 by Lg Krihsnan MD) Other Adopted History Items: - - Patient was adopted and does not know his maternal or paternal family history. Maternal Family History: Family History (Last Reviewed 07/05/19 @ 03:05 by Lg Krishnan MD) Other Adopted History Items: - - Patient was adopted and does not know his maternal or paternal family history. Review of Systems Constitutional: Denies: Chills, Fever, Weight Change HEENT: Denies: Head Aches, Sinus Congestion, Sinus Drainage Cardiovascular: Denies: Chest Pain, Palpitations Respiratory: Denies: Cough, Shortness of breath at rest, Sputum production Gastrointestinal: Denies: Abdominal Pain, Nausea, Vomiting Genitourinary: Denies: Dysuria Musculoskeletal: Denies: Joint Pain, Joint Tenderness Skin: Denies: Rash, Wounds Neurological: Denies: Numbness, Tingling, Focal weakness Psychiatric: Denies: Anxiety, Depression, Homicidal Ideations, Suicidal Ideations Hematologic/ Lymphatic: Denies: Easy Bruising, Easy Bleeding Patient Problems: Active and Suspected Problems (Last Reviewed 07/05/19 @ 03:05 by Lg Krishnan MD) Sepsis (Acute) Community acquired pneumonia (Acute) - Physical Exam General: Alert, Oriented x3, Cooperative HEENT: Atraumatic, PERRLA, EOMI, Normocephalic Neck: Supple, No JVD, Negative Carotid Bruits Lungs: Clear to auscultation, Normal air movement Cardiovascular: Regular rate, No murmurs Abdomen: Bowel Sounds Present, Soft, Non Tender Extremities: No edema, Capillary Refill Less than 3 Seconds Skin: No rashes, No breakdown Musculoskeletal: No Tenderness to Palpation of Joints or Extremities Neurological: Cranial nerves II-XII grossly intact Psych/Mental Status: Normal Affect, Appropriate Vital Signs Temp Pulse Resp BP Pulse Ox 98.2 F 95 18 99/58 L 97 07/05/19 07:35 07/05/19 10:00 07/05/19 07:35 07/05/19 07:35 07/05/19 08:01 Oxygen Flow Rate (L/min) 2 Oxygen Delivery Method Nasal Cannula Weight: 136.6 kg Body Mass Index (BMI) 43.2 Intake and Output for Last 24 Hours 07/03/19 07/04/19 07/05/19 23:59 23:59 23:59 Intake Total 1015 / 1015 Output Total 0 / 0 Balance 1015 / 1015 Laboratory Tests Past 24 Hrs 07/04/19 07/04/19 07/04/19 00:00 00:00 00:00 WBC RBC Hgb Hct MCV MCH MCHC RDW Std Deviation RDW Coeff of Lance Plt Count MPV Immature Gran % (Auto) Neut % (Auto) Lymph % (Auto) [place] % (Auto) Eos % (Auto) Baso % (Auto) Absolute Neuts (auto) Absolute Lymphs (auto) Nucleated RBC % PT 15.7 H INR 1.3 APTT 31.5 Sodium Potassium Chloride Carbon Dioxide Anion Gap BUN Creatinine Estim Creat Clear Calc Est GFR (MDRD) Af Amer Est GFR (MDRD) Non-Af BUN/Creatinine Ratio Glucose Lactic Acid 0.9 Calcium Total Bilirubin AST ALT Alkaline Phosphatase Troponin I B-Natriuretic Peptide 178.0 H Total Protein Albumin Globulin Albumin/Globulin Ratio 07/04/19 07/04/19 07/05/19 23:30 23:30 00:00 WBC 6.4 RBC 3.44 L Hgb 9.9 L Hct 32.8 L MCV 95.3 H MCH 28.8 MCHC 30.2 L RDW Std Deviation 58.4 H RDW Coeff of Lance 16.8 H Plt Count 229 MPV 10.4 Immature Gran % (Auto) 0.600 Neut % (Auto) 70.0 Lymph % (Auto) 13.7 L [place] % (Auto) 12.1 H Eos % (Auto) 2.8 Baso % (Auto) 0.8 Absolute Neuts (auto) 4.5 Absolute Lymphs (auto) 0.88 Nucleated RBC % 0 PT INR APTT Sodium Cancelled 139 Potassium Cancelled 4.8 Chloride Cancelled 97 L Carbon Dioxide Cancelled 29.0 Anion Gap Cancelled 13 BUN Cancelled 67 H Creatinine Cancelled 12.80 H* Estim Creat Clear Calc Cancelled 8.16 Est GFR (MDRD) Af Amer Cancelled 6 L Est GFR (MDRD) Non-Af Cancelled 5 L BUN/Creatinine Ratio Cancelled 5.2 L Glucose Cancelled 95 Lactic Acid Calcium Cancelled 8.4 L Total Bilirubin Cancelled 0.40 AST Cancelled 14 L ALT Cancelled 14 L Alkaline Phosphatase Cancelled 84 Troponin I Cancelled < 0.015 B-Natriuretic Peptide Total Protein Cancelled 7.7 Albumin Cancelled 3.2 Globulin Cancelled 4.5 H Albumin/Globulin Ratio Cancelled 0.7 L 07/05/19 06:18 WBC 6.5 RBC 3.29 L Hgb 9.5 L Hct 31.2 L MCV 94.8 H MCH 28.9 MCHC 30.4 L RDW Std Deviation 57.1 H RDW Coeff of Lance 16.3 H Plt Count 225 MPV 9.9 Immature Gran % (Auto) 0.800 Neut % (Auto) 69.4 Lymph % (Auto) 15.7 L [place] % (Auto) 11.2 H Eos % (Auto) 2.3 Baso % (Auto) 0.6 Absolute Neuts (auto) 4.5 Absolute Lymphs (auto) 1.03 Nucleated RBC % 0 PT INR APTT Sodium Potassium Chloride Carbon Dioxide Anion Gap BUN Creatinine Estim Creat Clear Calc Est GFR (MDRD) Af Amer Est GFR (MDRD) Non-Af BUN/Creatinine Ratio Glucose Lactic Acid Calcium Total Bilirubin AST ALT Alkaline Phosphatase Troponin I B-Natriuretic Peptide Total Protein Albumin Globulin Albumin/Globulin Ratio Assessment/Plan All Active Problems (Last Reviewed 07/05/19 @ 03:05 by Lg Krishnan MD) Sepsis (Acute) Community acquired pneumonia (Acute) ESRD. HD today Bacteremia. patient is growing corynebacteria in blood. He spiked a fever on dialysis about 10 days ago. At that time, cultures sent showed corynebacterium in 1/2. received a dose of vanco. however clinically got better and we stopped vanco after 2 doses. now has persistent bacteremia from same organism. likely real infection. apparently had 2 teeth pulled last month graft site on exam looks clean with no local tenderness he is a difficult access patient. current right femoral AVG is almost his last access. he did not do well with femoral tunneled dialysis catheters either due to some form of vena cava stenosis. would like to preserve graft if possible steve Fernandes. ID consult to be placed steve Arriaza. will send cultures from graft site today
--- NOTE | 2019-07-05 13:10 | CASEMGMT ---
Case Management Progress Note: This greeting card writer to bedside to complete initial assessment, patient currently sleeping with nasal CPAP on. Primary CM Jaja hanna. CM to continue to follow for assessment and care coordination needs. George Chavez RNCM
--- NOTE | 2019-07-05 14:02 | CHAPLAIN ---
patient is sleeping; did not disturb
--- NOTE | 2019-07-05 15:06 | PCM.HP.ID ---
Problem List (1) Bacteremia Status: Acute Reason for Consult: (+) bcx Consulted by: Dr. Fernandes History of Present Illness: The patient is a 39 year old M with ESRD, HD through R groin AVG, presented with fever. Sx started at dialysis about 2 weeks ago, bcx drawn, given dose of vanc x2. Single bcx from graft with corynebacteria. Fevers resolved, felt better. Over past few days, increasing cough, SOB, and fever again. Seen in ED 07/02, bcx drawn, now single set from graft again (+) corynebacteria. Admitted on azithro and ceftriaxone. Feeling a little better. Denies pain, swelling, drainage, redness at graft site. Full ROS performed and neg except as noted above. - Medical History Past Medical History (Chronic Problems): Chronic Problems (Last Reviewed 07/05/19 @ 03:05 by Lg Krishnan MD) PAF (paroxysmal atrial fibrillation) (Chronic) Dialysis patient (Chronic) Left shoulder pain (Chronic) Anemia of chronic disorder (Chronic) History of bacterial endocarditis (Chronic) Hypertension (Chronic) ESRD (end stage renal disease) (Chronic) Due to hypertension, On hemodialysis, TTS, followed by Dr. 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) Mitral valve disease (Chronic) Mitral valve stenosis (Chronic) Sleep apnea (Chronic) Hearing loss (Chronic) in both ears Allergies/Adverse Reactions: Allergies No Known Allergies Allergy (Verified 07/04/19 23:40) Home Medications: Ambulatory Orders Medication Instructions Recorded cinacalcet 60 mg tablet 60 mg PO MOWEFR 10/10/17 Apixaban [Eliquis] 2.5 mg PO BID 12/02/18 Ferric Citrate [Auryxia] 210 mg PO TIDCM 02/05/19 Metoprolol Tartrate [Lopressor 25 mg PO BID 02/05/19 (beta zbigniew)] - Social History SMOKING STATUS:: Former smoker Vital Signs Temp Pulse Resp BP Pulse Ox 98.2 F 90 18 99/58 L 97 07/05/19 07:35 07/05/19 13:45 07/05/19 07:35 07/05/19 07:35 07/05/19 08:01 Oxygen Flow Rate (L/min) 2 Oxygen Delivery Method Nasal Cannula Weight: 136.6 kg Body Mass Index (BMI) 43.2 Laboratory Tests Past 24 Hrs 07/04/19 07/04/19 07/04/19 00:00 00:00 00:00 WBC RBC Hgb Hct MCV MCH MCHC RDW Std Deviation RDW Coeff of Lance Plt Count MPV Immature Gran % (Auto) Neut % (Auto) Lymph % (Auto) [place] % (Auto) Eos % (Auto) Baso % (Auto) Absolute Neuts (auto) Absolute Lymphs (auto) Nucleated RBC % PT 15.7 H INR 1.3 APTT 31.5 Sodium Potassium Chloride Carbon Dioxide Anion Gap BUN Creatinine Estim Creat Clear Calc Est GFR (MDRD) Af Amer Est GFR (MDRD) Non-Af BUN/Creatinine Ratio Glucose Lactic Acid 0.9 Calcium Total Bilirubin AST ALT Alkaline Phosphatase Troponin I B-Natriuretic Peptide 178.0 H Total Protein Albumin Globulin Albumin/Globulin Ratio 07/04/19 07/04/19 07/05/19 23:30 23:30 00:00 WBC 6.4 RBC 3.44 L Hgb 9.9 L Hct 32.8 L MCV 95.3 H MCH 28.8 MCHC 30.2 L RDW Std Deviation 58.4 H RDW Coeff of Lance 16.8 H Plt Count 229 MPV 10.4 Immature Gran % (Auto) 0.600 Neut % (Auto) 70.0 Lymph % (Auto) 13.7 L [place] % (Auto) 12.1 H Eos % (Auto) 2.8 Baso % (Auto) 0.8 Absolute Neuts (auto) 4.5 Absolute Lymphs (auto) 0.88 Nucleated RBC % 0 PT INR APTT Sodium Cancelled 139 Potassium Cancelled 4.8 Chloride Cancelled 97 L Carbon Dioxide Cancelled 29.0 Anion Gap Cancelled 13 BUN Cancelled 67 H Creatinine Cancelled 12.80 H* Estim Creat Clear Calc Cancelled 8.16 Est GFR (MDRD) Af Amer Cancelled 6 L Est GFR (MDRD) Non-Af Cancelled 5 L BUN/Creatinine Ratio Cancelled 5.2 L Glucose Cancelled 95 Lactic Acid Calcium Cancelled 8.4 L Total Bilirubin Cancelled 0.40 AST Cancelled 14 L ALT Cancelled 14 L Alkaline Phosphatase Cancelled 84 Troponin I Cancelled < 0.015 B-Natriuretic Peptide Total Protein Cancelled 7.7 Albumin Cancelled 3.2 Globulin Cancelled 4.5 H Albumin/Globulin Ratio Cancelled 0.7 L 07/05/19 06:18 WBC 6.5 RBC 3.29 L Hgb 9.5 L Hct 31.2 L MCV 94.8 H MCH 28.9 MCHC 30.4 L RDW Std Deviation 57.1 H RDW Coeff of Lance 16.3 H Plt Count 225 MPV 9.9 Immature Gran % (Auto) 0.800 Neut % (Auto) 69.4 Lymph % (Auto) 15.7 L [place] % (Auto) 11.2 H Eos % (Auto) 2.3 Baso % (Auto) 0.6 Absolute Neuts (auto) 4.5 Absolute Lymphs (auto) 1.03 Nucleated RBC % 0 PT INR APTT Sodium Potassium Chloride Carbon Dioxide Anion Gap BUN Creatinine Estim Creat Clear Calc Est GFR (MDRD) Af Amer Est GFR (MDRD) Non-Af BUN/Creatinine Ratio Glucose Lactic Acid Calcium Total Bilirubin AST ALT Alkaline Phosphatase Troponin I B-Natriuretic Peptide Total Protein Albumin Globulin Albumin/Globulin Ratio - Other Studies Radiology: [] reviewed Other Studies: [] Route of nutrition/ use of supplements: [] Nutritional Intake: [] IV Site: [] Call Catheter: [] - Physical Exam General: Alert, Oriented x3, Cooperative, No apparent distress HEENT: Atraumatic, PERRLA, EOMI Neck: Supple, No Nodes Lungs: Diminished - scattered rhonchi Cardiovascular: Regular rate, Regular Rhythm Abdomen: Soft, Non Tender, Non-Distended Extremities: No edema Skin: No rashes IV Site: - - R groin AVG without redness or tenderness Musculoskeletal: No Tenderness to Palpation of Joints or Extremities Neurological: Cranial nerves II-XII grossly intact - Assessment/Plan Antibiotics: [] Assessment/Plan: [] Active and Suspected Problems (Last Reviewed 07/05/19 @ 03:05 by Lg Krishnan MD) Sepsis (Acute) Community acquired pneumonia (Acute) Covering for CAP with ceftriaxone/azithro. Will check resp pcr panel. recurrent (+) corynebacteria from R groin AVG - repeat bcx today. Susc pending from 07/02. Should be covered by ceftriaxone. Likely will need course of iv abx via dialysis at discharge. Will follow, thank you, tom Melendez
[2019-07-05] MEDS: FERRIC CITRATE 210 MG 840 MG PO (17:33)
[2019-07-05] MEDS: Heparin 10,000 UNITS/10 ML Vial IV (18:11)
--- NOTE | 2019-07-05 23:22 | DIALYSIS ---
HD x4.5 hours completed, tolerated well, UF 4300mL, accessed via right leg AVG using 15G needles, issues placing distal needle, positional, max BFR 325-350, stable treatment, 2 sets of blood cultures drawn from AVG pre treatment, 10,000 unit heparin bolus given at start of treatment, 5,000 units given mid tx, stasis achieved in less than 10 mins each site
[2019-07-05] MEDS: Atorvastatin Calcium 80 MG Tablet PO (23:34)
[2019-07-05] MEDS: Acetaminophen 325 MG Tablet 650 MG PO (23:35)
[2019-07-06] VITALS (14 sets, daily range): BP systolic 88–141; BP diastolic 37–81; PULSE 80–114; RESP 18–20; TEMP 36.5–37.2; O2SAT 95–100
[2019-07-06 06:51] LABS: Absolute Lymphocyte Count 0.73 X10^3/uL (0.83-4.51); Absolute Neutrophil Count 3.9 X10^3/uL (2.0-7.7); Basophil# 0.03 X10^3/uL; Basophil% 0.6 % (0-1); Eosinophil# 0.15 X10^3/uL; Eosinophils% 2.8 % (0-5); Hematocrit 32.8 % (40-54); Lymphocyte # 0.73 X10^3/ul (4.0); Lymphocyte % 13.6 % (19-41); Mean Corp Hgb Conc 30.5 g/dL (32-36); Mean Corpuscular Volume 95.1 fL (80-94); Mean Platelet Vol. 10.1 fl (6.2-12.0); Monocyte# 0.55 X10^3/uL; Monocyte% 10.3 % (0-10); NRBC Flagged by Analyzer 0 % (0-5); Neutrophil # 3.85 X10^3/uL (2.7-7.7); Neutrophil % 71.8 % (47-70); Platelet Count 228 K/mm3 (150-450); RBC Distribution Width CV 16.3 % (11.6-14.6); RBC Distribution Width SD 56.6 fl (35.1-43.9); Red Blood Count 3.45 M/mm3 (4.6-6.2); White Blood Count 5.4 K/mm3 (4.4-11.0)
[2019-07-06 07:37] LABS: Anion Gap 11 (5-15); BUN 41 mg/dL (7-18); BUN/Creat Ratio 4.4 RATIO (10-20); Calcium,Total 7.9 mg/dL (8.5-10.1); Chloride 93 mmol/L (98-107); Creatinine, Serum 9.37 mg/dL (0.70-1.30); EST Glomerular Filtration Rate 7 mL/min (>60); Est Glom Filt Rate - Afr Amer 8 mL/min (>60); Estimated Creatinine Clearance 11.15 ml/min; Glucose 94 mg/dL (74-106); Potassium 4.1 mmol/L (3.5-5.1); Sodium Level 135 mmol/L (136-145)
--- NOTE | 2019-07-06 09:32 | NURSING ---
pt refusing AM meds- requesting to wait until breakfast comes.
--- NOTE | 2019-07-06 09:53 | PCM.PN.ID ---
Patient Problems: Active and Suspected Problems (Last Reviewed 07/05/19 @ 03:05 by Lg Krishnan MD) Sepsis (Acute) Community acquired pneumonia (Acute) Bacteremia (Acute) Subjective: Feeling better today, breathing improved, no fever - Physical Exam General: Alert, Cooperative, No apparent distress Lungs: - - improved rhonchi Cardiovascular: Tachycardic Abdomen: Soft, Non Tender, Non-Distended Skin: No rashes Vital Signs Temp Pulse Resp BP Pulse Ox 98.9 F 98 20 H 95/51 L 95 07/06/19 08:11 07/06/19 08:11 07/06/19 08:11 07/06/19 08:11 07/06/19 08:11 Oxygen Flow Rate (L/min) 2 Oxygen Delivery Method CPAP Weight: 136.6 kg Body Mass Index (BMI) 43.2 Orthostatic Vital Signs Start: 07/06/19 06:47 Freq: q24h Status: Active Protocol: Activity Type Activity Date Activity User E-Sign Co-Sign Detail Recorded Client Recorded Date Recorded By Document 07/06/19 06:47 CJY [id number] 07/06/19 06:48 CJY 07/06/19 06:47 Orthostatic Vitals Standing -Blood Pressure (90/60-120/80 mm Hg) 134/81 H -Extremity Use Left Arm Sitting -Blood Pressure (90/60-120/80 mm Hg) 141/70 H -Extremity Use Left Arm Lying -Blood Pressure (90/60-120/80 mm Hg) 101/37 L -Extremity Use Left Arm -Pulse Rate (60-100 beats/min) 103 H Intake and Output for Last 24 Hours 07/04/19 07/05/19 07/06/19 23:59 23:59 23:59 Intake Total 1425 / 1905 975 / 975 Output Total 4300 / 8600 4300 / 4300 Balance -2875 / -6695 -3325 / -3325 Microbiology Past 72 Hours 07/05/19 16:50 Respiratory Panel (PCR) - Final Mucosa - Nose Laboratory Tests Past 24 Hrs 07/06/19 07/06/19 06:39 06:39 WBC 5.4 RBC 3.45 L Hgb 10.0 L Hct 32.8 L MCV 95.1 H MCH 29.0 MCHC 30.5 L RDW Std Deviation 56.6 H RDW Coeff of Lance 16.3 H Plt Count 228 MPV 10.1 Immature Gran % (Auto) 0.900 Neut % (Auto) 71.8 H Lymph % (Auto) 13.6 L [place] % (Auto) 10.3 H Eos % (Auto) 2.8 Baso % (Auto) 0.6 Absolute Neuts (auto) 3.9 Absolute Lymphs (auto) 0.73 L Nucleated RBC % 0 Sodium 135 L Potassium 4.1 Chloride 93 L Carbon Dioxide 31.0 Anion Gap 11 BUN 41 H Creatinine 9.37 H* Estim Creat Clear Calc 11.15 Est GFR (MDRD) Af Amer 8 L Est GFR (MDRD) Non-Af 7 L BUN/Creatinine Ratio 4.4 L Glucose 94 Calcium 7.9 L Medical Necessity - Tobacco Use Smoking Status: Former smoker Route of nutrition/ use of supplements: [] Nutritional Intake: [] IV Site: [] Call Catheter: [] - Assessment/Plan Antibiotics: [] Assessment/Plan: [] Active and Suspected Problems (Last Reviewed 07/05/19 @ 03:05 by Lg Krishnan MD) Sepsis (Acute) Community acquired pneumonia (Acute) Covering for CAP with ceftriaxone/azithro. Neg resp pcr panel. Sx improving. 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 Susc pending from 07/02. Should be covered by ceftriaxone. Likely will need course of iv abx via dialysis at discharge. Will follow
[2019-07-06] MEDS: APIXABAN 2.5 MG TABLET PO ×2 (10:40→21:46)
[2019-07-06] MEDS: guaiFENesin 1,200 MG Tablet 1200 MG PO ×2 (10:40→21:46)
[2019-07-06] MEDS: Aspirin E.C. 81 MG Tablet PO (10:40)
[2019-07-06] MEDS: FERRIC CITRATE 210 MG 840 MG PO ×2 (10:42→17:32)
--- NOTE | 2019-07-06 11:17 | PCM.PN.REN ---
Patient Problems: Active and Suspected Problems (Last Reviewed 07/05/19 @ 03:05 by Lg Krishnan MD) Sepsis (Acute) Community acquired pneumonia (Acute) Bacteremia (Acute) Subjective: no new complaints - Physical Exam General: Alert, Oriented x3, Cooperative HEENT: Atraumatic, PERRLA, EOMI, Normocephalic Neck: Supple, No JVD, Negative Carotid Bruits Lungs: Clear to auscultation, Normal air movement Cardiovascular: Regular rate, No murmurs Abdomen: Bowel Sounds Present, Soft, Non Tender Extremities: No edema, Capillary Refill Less than 3 Seconds Skin: No rashes, No breakdown Musculoskeletal: No Tenderness to Palpation of Joints or Extremities Neurological: Cranial nerves II-XII grossly intact Psych/Mental Status: Normal Affect, Appropriate Vital Signs Temp Pulse Resp BP Pulse Ox 98.7 F 99 18 102/75 100 07/06/19 10:43 07/06/19 10:43 07/06/19 10:43 07/06/19 10:43 07/06/19 10:43 Oxygen Flow Rate (L/min) 2 Oxygen Delivery Method Room Air Weight: 136.6 kg Body Mass Index (BMI) 43.2 Orthostatic Vital Signs Start: 07/06/19 06:47 Freq: q24h Status: Active Protocol: Activity Type Activity Date Activity User E-Sign Co-Sign Detail Recorded Client Recorded Date Recorded By Document 07/06/19 06:47 CJY [id number] 07/06/19 06:48 CJY 07/06/19 06:47 Orthostatic Vitals Standing -Blood Pressure (90/60-120/80) 134/81 H -Extremity Use Left Arm Sitting -Blood Pressure (90/60-120/80) 141/70 H -Extremity Use Left Arm Lying -Blood Pressure (90/60-120/80) 101/37 L -Extremity Use Left Arm -Pulse Rate (60-100) 103 H Intake and Output for Last 24 Hours 07/04/19 07/05/19 07/06/19 23:59 23:59 23:59 Intake Total 1425 / 1905 975 / 975 Output Total 4300 / 8600 4300 / 4300 Balance -2875 / -6695 -3325 / -3325 Microbiology Past 72 Hours 07/05/19 16:50 Respiratory Panel (PCR) - Final Mucosa - Nose Laboratory Tests Past 24 Hrs 07/06/19 07/06/19 06:39 06:39 WBC 5.4 RBC 3.45 L Hgb 10.0 L Hct 32.8 L MCV 95.1 H MCH 29.0 MCHC 30.5 L RDW Std Deviation 56.6 H RDW Coeff of Lance 16.3 H Plt Count 228 MPV 10.1 Immature Gran % (Auto) 0.900 Neut % (Auto) 71.8 H Lymph % (Auto) 13.6 L [place] % (Auto) 10.3 H Eos % (Auto) 2.8 Baso % (Auto) 0.6 Absolute Neuts (auto) 3.9 Absolute Lymphs (auto) 0.73 L Nucleated RBC % 0 Sodium 135 L Potassium 4.1 Chloride 93 L Carbon Dioxide 31.0 Anion Gap 11 BUN 41 H Creatinine 9.37 H* Estim Creat Clear Calc 11.15 Est GFR (MDRD) Af Amer 8 L Est GFR (MDRD) Non-Af 7 L BUN/Creatinine Ratio 4.4 L Glucose 94 Calcium 7.9 L Medical Necessity - Tobacco Use Smoking Status: Former smoker Assessment/Plan All Active Problems (Last Reviewed 07/05/19 @ 03:05 by Lg Krishnan MD) Sepsis (Acute) Community acquired pneumonia (Acute) Bacteremia (Acute) ESRD. HD today Bacteremia. patient is growing corynebacteria in blood. He spiked a fever on dialysis about 10 days ago. At that time, cultures sent showed corynebacterium in 1/2. received a dose of vanco. however clinically got better and we stopped vanco after 2 doses. now has persistent bacteremia from same organism. likely real infection. apparently had 2 teeth pulled last month graft site on exam looks clean with no local tenderness he is a difficult access patient. current right femoral AVG is almost his last access. he did not do well with femoral tunneled dialysis catheters either due to some form of vena cava stenosis. would like to preserve graft if possible ID following will wait for final recs regarding abx still has a left femoral TDC. called dialysis unit. will be setup for removal
--- NOTE | 2019-07-06 12:53 | CHAPLAIN ---
Type of Pastoral Visit _x__ Initial Visit ___ Follow-up Visit ___ On-call Visit ___ General Patient Visit ___ Spiritual Assessment ___ Family Conference ___ Bereavement ___ Rapid Response ___ Code Blue ___ Other (describe below) Pastoral Care Referral From _x__ Patient ___ Family ___ Nurse ___ Physician ___ Spanish Interpreter ___ Coverage Analyst ___ Other (describe below) Sacrament/Intervention _x__ Active listening ___ Anointing ___ Religion ___ Bereavement ___ Communion _x__ Layla exploration ___ _x__ Life review _x__ Prayer ___ Reconciliation ___ Sacrament of Sick ___ Supportive presence ___ Wedding ___ Other (describe below) Pastoral Comments
--- NOTE | 2019-07-06 12:59 | PCM.PN.HOSP ---
Patient Problems: Active and Suspected Problems (Last Reviewed 07/05/19 @ 03:05 by Lg Krishnan MD) Sepsis (Acute) Community acquired pneumonia (Acute) Bacteremia (Acute) Subjective: Patient seen and examined. He feels much better today. Review of systems is otherwise negative. Labs and vitals reviewed. Repeat blood cultures pending. Vitals/I&O's: Vital Signs Temp Pulse Resp BP Pulse Ox 98.7 F 99 18 102/75 100 07/06/19 10:43 07/06/19 10:43 07/06/19 10:43 07/06/19 10:43 07/06/19 10:43 Oxygen Flow Rate (L/min) 2 Oxygen Delivery Method Room Air Weight: 301 lb 2.423 oz Body Mass Index (BMI) 43.2 Orthostatic Vital Signs Start: 07/06/19 06:47 Freq: q24h Status: Active Protocol: Activity Type Activity Date Activity User E-Sign Co-Sign Detail Recorded Client Recorded Date Recorded By Document 07/06/19 06:47 Y [id number] 07/06/19 06:48 CJY 07/06/19 06:47 Orthostatic Vitals Standing -Blood Pressure (90/60-120/80 mm Hg) 134/81 H -Extremity Use Left Arm Sitting -Blood Pressure (90/60-120/80 mm Hg) 141/70 H -Extremity Use Left Arm Lying -Blood Pressure (90/60-120/80 mm Hg) 101/37 L -Extremity Use Left Arm -Pulse Rate (60-100 beats/min) 103 H Intake and Output for Last 24 Hours 07/04/19 07/05/19 07/06/19 23:59 23:59 23:59 Intake Total 1425 / 1905 975 / 975 Output Total 4300 / 8600 4300 / 4300 Balance -2875 / -6695 -3325 / -3325 General: Alert, Oriented x3, Cooperative, No apparent distress HEENT: Atraumatic, PERRLA, EOMI, Normocephalic Oral: Moist Mucosa Neck: Supple, No JVD, Negative Carotid Bruits Lungs: Clear to auscultation, Normal air movement, No rhonchi, No wheeze, No rales Cardiovascular: Regular rate, Regular Rhythm, Normal S1, Normal S2, No murmurs Abdomen: Bowel Sounds Present, Soft, Non Tender, Non-Distended, No Hepato-splenomegaly Extremities: No clubbing, No cyanosis, No edema, Capillary Refill Less than 3 Seconds Skin: No rashes, No breakdown Musculoskeletal: No Tenderness to Palpation of Joints or Extremities, - - AV fistula with palpable thrill in right groin Neurological: Cranial nerves II-XII grossly intact, Neuro grossly intact, Motor Exam 5/5 strength throughout Psych/Mental Status: Normal Affect, Appropriate, Alert and oriented to time, place, person, mood and affect Microbiology Past 72 Hours 07/05/19 16:50 Mucosa - Nose Respiratory Panel (PCR) - Final Laboratory Results 07/06/19 06:39: WBC 5.4, RBC 3.45 L, Hgb 10.0 L, Hct 32.8 L, MCV 95.1 H, MCH 29.0, MCHC 30.5 L, RDW Std Deviation 56.6 H, RDW Coeff of Lance 16.3 H, Plt Count 228, MPV 10.1, Immature Gran % (Auto) 0.900, Neut % (Auto) 71.8 H, Lymph % (Auto) 13.6 L, [place] % (Auto) 10.3 H, Eos % (Auto) 2.8, Baso % (Auto) 0.6, Absolute Neuts (auto) 3.9, Absolute Lymphs (auto) 0.73 L, Nucleated RBC % 0 07/06/19 06:39: Sodium 135 L, Potassium 4.1, Chloride 93 L, Carbon Dioxide 31.0, Anion Gap 11, BUN 41 H, Creatinine 9.37 H*, Estim Creat Clear Calc 11.15, Est GFR (MDRD) Af Amer 8 L, Est GFR (MDRD) Non-Af 7 L, BUN/Creatinine Ratio 4.4 L, Glucose 94, Calcium 7.9 L Diagnostic Data Chest X-Ray 07/04/19 23:10 IMPRESSION: 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 Evolving left midlung atelectasis. Electronically Signed: Yogesh Dunn MD at 23:34 EDT Tel , Service support , Current Medications Acetaminophen (Tylenol) 650 mg PO Q6H PRN PRN PRN Reason: Mild Pain (1-3)/Temp > 100.7 F Last Admin: 07/05/19 23:35 Dose: 650 mg Documented by: Albuterol Sulfate (Ventolin Aerosols) 2.5 mg INHALATION Q2H PRN PRN PRN Reason: Shortness of Breath/Wheezing Last Admin: 07/05/19 05:19 Dose: 2.5 mg Documented by: Apixaban (Eliquis) 2.5 mg PO BID [facility] Last Admin: 07/06/19 10:40 Dose: 2.5 mg Documented by: Aspirin (Ecotrin) 81 mg PO DAILY@0800 [facility] Last Admin: 07/06/19 10:40 Dose: 81 mg Documented by: Atorvastatin Calcium (Lipitor) 80 mg PO QHS [facility] Last Admin: 07/05/19 23:34 Dose: 80 mg Documented by: Cinacalcet (Sensipar) 60 mg PO MoWeFr@0800 [facility] Last Admin: 07/05/19 08:23 Dose: 60 mg Documented by: Dextrose (D50w Syringe) 0 gm IV X1 PRN; Protocol PRN Reason: Hypoglycemia Glucagon () 1 mg IM .X1 PRN PRN Reason: Hypoglycemia Guaifenesin (Mucinex) 1,200 mg PO BID [facility] Last Admin: 07/06/19 10:40 Dose: 1,200 mg Documented by: Ceftriaxone Sodium (Rocephin) 1 gm in 50 mls @ 100 mls/hr IV Q24@2200 [facility] Last Infusion: 07/05/19 23:51 Dose: Infused Documented by: Azithromycin 500 mg/ Dextrose 255 mls @ 250 mls/hr IV Q24@2200 [facility] Last Infusion: 07/06/19 00:55 Dose: Infused Documented by: Sodium Chloride () 250 mls @ 15 mls/hr IV .[id number] PRN PRN Reason: SALINE FLUSH Metoprolol Tartrate (Lopressor (Beta Yossi)) 25 mg PO BID [facility] Last Admin: 07/05/19 23:34 Dose: 25 mg Documented by: Nutritional Formula (Nepro Carb Steady) 120 ml PO 4X/DAY [facility] Last Admin: 07/06/19 09:31 Dose: Not Given Documented by: Ondansetron HCl (Zofran) 4 mg IV Q8H PRN PRN PRN Reason: NAUSEA/VOMITING Senna/Docusate Sodium (Senokot-S, Skye-Colace) 2 tablet PO BID PRN PRN PRN Reason: Constipation Sodium Chloride () 5 - 15 ml IV UD PRN PRN Reason: SALINE FLUSH Medical Necessity - Tobacco Use Smoking Status: Former smoker Assessment/Plan All Active Problems (Last Reviewed 07/05/19 @ 03:05 by Lg Krishnan MD) Sepsis (Acute) Community acquired pneumonia (Acute) Bacteremia (Acute) 1. Sepsis due to community acquired pneumonia tachypnea and tachycardia have resolved. still no leucocytosis respiratory panel negative on IV ceftriaxone and azithromycin blood cultures pending continue chest physiotherapy and breathing treatments 2. Bacteremia blood cultures from 07/02/19 grew Corynebacterium amycolatum (1/2) was from dialysis catheter; repeat blood cultures pending ID on board; ceftriaxone will cover Corynebacterium. Patient will likely need IV antibiotics with dialysis after discharge 3. A. fib:rate controlled. On metoprolol and Eliquis. 4. ESRD: On dialysis Wednesdays and Fridays. Dr. Melendez consulted. 5. Hypertension: fairly controlled. On metoprolol. 6. Sleep apnea: on CPAP qhs DVT prophylaxis: on eliquis Code Visit Inpatient E&M: [id number] Subs Hosp L2
[2019-07-06] MEDS: Ceftriaxone 1 GM/50 ML BAG IV (21:41)
[2019-07-06] MEDS: 0.9% NaCl Peripheral Flush Adult/Peds IV (21:42)
[2019-07-06] MEDS: Metoprolol Tartrate 25 MG Tablet PO (21:46)
[2019-07-06] MEDS: Atorvastatin Calcium 80 MG Tablet PO (21:51)
[2019-07-07 02:34] VITALS: BP 97/61; PULSE 91; RESP 18; TEMP 36.8; O2SAT 100
[2019-07-07 04:00] VITALS: PULSE 94
[2019-07-07 07:49] LABS: Anion Gap 11 (5-15); BUN 58 mg/dL (7-18); BUN/Creat Ratio 4.9 RATIO (10-20); Calcium,Total 8.3 mg/dL (8.5-10.1); Chloride 95 mmol/L (98-107); EST Glomerular Filtration Rate 5 mL/min (>60); Est Glom Filt Rate - Afr Amer 6 mL/min (>60); Estimated Creatinine Clearance 8.85 ml/min; Glucose 85 mg/dL (74-106); Potassium 4.7 mmol/L (3.5-5.1); Sodium Level 134 mmol/L (136-145)
[2019-07-07 07:54] LABS: Absolute Lymphocyte Count 1.01 X10^3/uL (0.83-4.51); Absolute Neutrophil Count 3.5 X10^3/uL (2.0-7.7); Basophil# 0.02 X10^3/uL; Basophil% 0.4 % (0-1); Eosinophil# 0.11 X10^3/uL; Hemoglobin 9.4 g/dL (13.0-16.5); Lymphocyte # 1.01 X10^3/ul (4.0); Lymphocyte % 18.3 % (19-41); Mean Corp Hgb Conc 30.3 g/dL (32-36); Mean Corpuscular Hgb 28.6 pg (27.0-32.0); Mean Corpuscular Volume 94.2 fL (80-94); Mean Platelet Vol. 10.5 fl (6.2-12.0); Monocyte# 0.83 X10^3/uL; NRBC Flagged by Analyzer 0 % (0-5); Neutrophil # 3.51 X10^3/uL (2.7-7.7); Neutrophil % 63.4 % (47-70); Platelet Count 235 K/mm3 (150-450); RBC Distribution Width CV 16.3 % (11.6-14.6); RBC Distribution Width SD 56.7 fl (35.1-43.9); Red Blood Count 3.29 M/mm3 (4.6-6.2); White Blood Count 5.5 K/mm3 (4.4-11.0)
[2019-07-07 10:00] VITALS: PULSE 98
--- NOTE | 2019-07-07 10:41 | PCM.DC ---
- Discharge Diagnoses Current Active Problems: Current Active and Chronic Problems (Last Reviewed 07/05/19 @ 03:05 by Lg Krishnan MD) Sepsis (Acute) Community acquired pneumonia (Acute) Bacteremia (Acute) You will use the following diet at home:: Renal (restricted protein/sodium) Your food should be the consistency of: Regular Your liquids should be the consistency of: Regular/Thin Discharge Activity: Return to Normal Activity Weight Bearing Status: Weight bearing as tolerated Call your doctor if you observe: Fever of 101 or Higher, Shortness of breath, Swelling in the ankles Instructions: Treating Pneumonia, Pneumonia Additional Instructions: follow up with surgeon in [place] for removal of femoral dialysis catheter. To get IV cefepime with dialysis for the next 5 dialysis days; stop date is 07/19/19 Allergies/Adverse Reactions: Allergies No Known Allergies Allergy (Verified 07/04/19 23:40) Medications to take at Discharge cinacalcet 60 mg tablet 60 mg PO MOWEFR 10/10/17 Apixaban [Eliquis] 2.5 mg PO BID 12/02/18 Ferric Citrate [Auryxia] 630 mg PO TIDCM 02/05/19 Metoprolol Tartrate [Lopressor (beta zbigniew)] 25 mg PO BID 02/05/19 Cefepime HCl [Maxipime] 2 gm IV UD #6 vial 07/07/19 Guaifenesin [Mucinex] 1,200 mg PO BID #30 tab 07/07/19 The following prescriptions were given: Cefepime HCl [Maxipime] 2 gm IV UD #6 vial Prescription Printed Guaifenesin [Mucinex] 1,200 mg PO BID #30 tab Transmission Status: Received by [employer] #30 Primary Care Physician: Pawel Banda MD [Primary Care Provider] - Please follow up with your Primary Care Physician in: one week Test Results: Test results from this visit will be discussed in further detail at your follow-up appointment, if applicable. Please Follow Up With: Tameka Melendez MD When: 1-2 weeks Please Follow Up With: Harley Arriaza MD When: 1-2 weeks Proposed Discharge Date: 07/07/19
--- NOTE | 2019-07-07 11:10 | CASEMGMT ---
RACHEL PARNELL Face to Face with patient for initial transition planning/care coordination assessment. RACHEL PARNELL introduced self and role at [facility]. Patient lying in bed, alert and oriented. Patient willing to participate in assessment and is able to answer all questions appropriately. Care providers, pharmacy, and demographics verified. Patient wishes to discharge home, denies need for home health at this time. Patient states he has no further needs or concerns at this time. CM to follow for discharge planning needs that may arise. PCP: [facility] Specialists: camilla Melendez Pharmacy: [facility] Insurance: [employer] Prescription Benefit: [employer] Living Will/HPOA: none LNOK: , mother Living Arrangements: Patient states lives with and in 1 story apt with a flight of stairs and states no concerns at home at this time. Pt is independent at home Transportation: self DME/HHC: Patient states has a cpap thru [facility]. Patient states no need for any further DME at this time. Patient states no previous HHC or SNF. Patient states has OP dialysis M,W,F at 0710 at [facility]. Script received from hospitalist for IV ATB to receive at HD. RACHEL PARNELL faxed script and clinical information to [facility]. RACHEL PARNELL called [facility] and updated that patient is discharging today and will return to outpatient HD on Friday and IV ATB. Disposition Plan: Patient to discharge home with outpatient HD, family support, and follow-up plans in place. Jaja KENNEDY, RN, CM
--- NOTE | 2019-07-07 11:12 | DS.PCM_ITS ---
Discharge Date and Diagnosis - Problem List Patient Problems: Active and Suspected Problems (Last Reviewed 07/05/19 @ 03:05 by Lg Krishnan MD) Sepsis (Acute) Community acquired pneumonia (Acute) Bacteremia (Acute) Date of Admission: 07/05/19 Date of Discharge: 07/07/19 - Primary Discharge Diagnosis Active and Suspected Problems (Last Reviewed 07/05/19 @ 03:05 by Lg Krishnan MD) Sepsis (Acute) Community acquired pneumonia (Acute) Bacteremia (Acute) - Secondary Discharge Diagnosis Chronic Problems (Last Reviewed 07/05/19 @ 03:05 by Lg Krishnan MD) PAF (paroxysmal atrial fibrillation) (Chronic) Dialysis patient (Chronic) Left shoulder pain (Chronic) Anemia of chronic disorder (Chronic) History of bacterial endocarditis (Chronic) Hypertension (Chronic) ESRD (end stage renal disease) (Chronic) Due to hypertension, On hemodialysis, TTS, followed by Dr. 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 Evolving left midlung atelectasis. Electronically Signed: Yogesh Dunn MD at 23:34 EDT Tel , Service support , nephrology- Dr Melendez infectious disease- Dr Arriaza Operations: None Procedures: None Summary of Care Provided: Patient is a 39-year-old male with an extensive past medical history which includes hypertension, end-stage renal disease on hemodialysis Wednesdays and Fridays, paroxysmal A. fib and sleep apnea. He was admitted through the ED on 07/05/2019 with a complaint of progressively worsening shortness of breath for 1 week. He also had chills which were not resolving. Temperature had peaked at around 103 Fahrenheit at home. He was seen in the ED 2 days prior to admission and was given antibiotics in the hospital but was discharged with no antibiotics. He had blood cultures drawn at that time and one bottle showed gram variable rods which from from the tunneled catheter in the left groin. Symptoms did not resolve and so he came into the ED with chest x-ray showing pneumonia. He was also tachycardic and tachypneic and met SIRS criteria and was managed as sepsis due to community-acquired pneumonia. He had no leukocytosis. He was started on IV ceftriaxone and azithromycin. He was subsequently noted that his blood cultures from a few days prior had grown corynebacterium. Per his elastic cutter, patient had also grown corynebacterium and a previous blood culture as well. Infectious disease was consulted. Corynebacterium was covered by the ceftriaxone. Repeat blood cultures obtained during this admission were negative. Patient remained stable and his shortness of breath resolved. He had dialysis during the admission. Per discussion with nephrology and infectious disease, decision was made not to remove his tunneled femoral catheter which had been placed for dialysis and was scheduled to be removed at that he had a graft placed in the right groin for dialysis. This was because it was placed by a surgeon in [place] and it was collectively thought that it was best for him to go back therefore to be removed. Patient was discharged with a prescription for IV cefepime with dialysis and he was to receive it as follows, he was received 2 g of IV cefepime with dialysis on Mondays and Wednesdays and 3 g on Fridays and was receive a total of 5 doses with a stop date of 07/19/2019. He is follow-up with his primary care doctor, with nephrology and infectious disease as well as the general surgeon in [place] who placed the dialysis catheter in his groin for removal. Patient seen and examined prior to discharge. He complained of a headache which was improved by Tylenol and [place]. Review of systems otherwise negative. Labs and vitals reviewed. Home medications reviewed and reconciled. o/e: Vital Signs Height 5 ft 10 in Weight: 293 lb 6.259 oz Weight in Pounds 293.4 lbs Pulse Ox 98 Temperature 98.8 F Pulse Rate [Lying] 103 Pulse Rate 80 Respiratory Rate 18 Blood Pressure [Standing] 134/81 Blood Pressure [Sitting] 141/70 Blood Pressure [Lying] 101/37 Blood Pressure 92/55 Blood Pressure Position Semi-Fowlers General: Alert, Oriented x3, Cooperative, No apparent distress HEENT: Atraumatic, PERRLA, EOMI, Normocephalic Oral: Moist Mucosa Neck: Supple, No JVD, Negative Carotid Bruits Lungs: Clear to auscultation, Normal air movement, No rhonchi, No wheeze, No rales Cardiovascular: Regular rate, Regular Rhythm, Normal S1, Normal S2, No murmurs Abdomen: Bowel Sounds Present, Soft, Non Tender, Non-Distended, No Hepato- splenomegaly Extremities: No clubbing, No cyanosis, No edema, Capillary Refill Less than 3 Seconds Skin: No rashes, No breakdown Musculoskeletal: No Tenderness to Palpation of Joints or Extremities, - - AV graft with palpable thrill in right groin; dialysis catheter in left groin Neurological: Cranial nerves II-XII grossly intact, Neuro grossly intact, Motor Exam 5/5 strength throughout Psych/Mental Status: Normal Affect, Appropriate, Alert and oriented to time, place, person, mood and affect Plan as above. Patient Problems: Active and Suspected Problems (Last Reviewed 07/05/19 @ 03:05 by Lg Krishnan MD) Sepsis (Acute) Community acquired pneumonia (Acute) Bacteremia (Acute) - Physical Exam Vital Signs Temp Pulse Resp BP Pulse Ox 98.3 F 98 18 97/61 100 07/07/19 02:34 07/07/19 10:00 07/07/19 02:34 07/07/19 02:34 07/07/19 02:34 Oxygen Flow Rate (L/min) 2 Oxygen Delivery Method CPAP Weight: 293 lb 6.259 oz Body Mass Index (BMI) 43.2 Orthostatic Vital Signs Start: 07/06/19 06:47 Freq: q24h Status: Active Protocol: Activity Type Activity Date Activity User E-Sign Co-Sign Detail Recorded Client Recorded Date Recorded By Document 07/06/19 06:47 CJY [id number] 07/06/19 06:48 CJY 07/06/19 06:47 Orthostatic Vitals Standing -Blood Pressure (90/60-120/80) 134/81 H -Extremity Use Left Arm Sitting -Blood Pressure (90/60-120/80) 141/70 H -Extremity Use Left Arm Lying -Blood Pressure (90/60-120/80) 101/37 L -Extremity Use Left Arm -Pulse Rate (60-100) 103 H Intake and Output for Last 24 Hours 07/05/19 07/06/19 07/07/19 23:59 23:59 23:59 Intake Total 1425 / 1905 1760 / 2240 880 / 880 Output Total 4300 / 8600 4300 / 4300 Balance -2875 / -6695 -2540 / -2060 880 / 880 Microbiology Past 72 Hours 07/05/19 16:50 Respiratory Panel (PCR) - Final Mucosa - Nose Laboratory Tests Past 24 Hrs 07/07/19 07/07/19 07:22 07:22 WBC 5.5 RBC 3.29 L Hgb 9.4 L Hct 31.0 L MCV 94.2 H MCH 28.6 MCHC 30.3 L RDW Std Deviation 56.7 H RDW Coeff of Lance 16.3 H Plt Count 235 MPV 10.5 Immature Gran % (Auto) 0.900 Neut % (Auto) 63.4 Lymph % (Auto) 18.3 L [place] % (Auto) 15.0 H Eos % (Auto) 2.0 Baso % (Auto) 0.4 Absolute Neuts (auto) 3.5 Absolute Lymphs (auto) 1.01 Nucleated RBC % 0 Sodium 134 L Potassium 4.7 Chloride 95 L Carbon Dioxide 28.0 Anion Gap 11 BUN 58 H Creatinine 11.80 H* Estim Creat Clear Calc 8.85 Est GFR (MDRD) Af Amer 6 L Est GFR (MDRD) Non-Af 5 L BUN/Creatinine Ratio 4.9 L Glucose 85 Calcium 8.3 L Discharge Diet: Renal Diet Discharge Activity: Return to Normal Activity Weight Bearing Status: Weight bearing as tolerated Call your doctor if you observe: Fever of 101 or Higher, Shortness of breath, Swelling in the ankles Home Medications: Medications to take at Discharge cinacalcet 60 mg tablet 60 mg PO MOWEFR 10/10/17 Apixaban [Eliquis] 2.5 mg PO BID 12/02/18 Ferric Citrate [Auryxia] 630 mg PO TIDCM 02/05/19 Cefepime HCl [Maxipime] 2 gm IV UD #6 vial 07/07/19 Guaifenesin [Mucinex] 1,200 mg PO BID #30 tab 07/07/19 Metoprolol Tartrate [Lopressor (beta zbigniew)] 25 mg PO BID #60 tab 07/07/19 Following Prescrptions Were Given to Patient: Metoprolol Tartrate [Lopressor (beta zbigniew)] 25 mg PO BID #60 tab Transmission Status: Received by [facility] #30 Cefepime HCl [Maxipime] 2 gm IV UD #6 vial Prescription Printed Guaifenesin [Mucinex] 1,200 mg PO BID #30 tab Transmission Status: Received by [facility] #[facility] Primary Care Physician: Pawel Banda MD [Primary Care Provider] - Please follow up with your Primary Care Physician in: one week Please Follow Up With: Tameka Melendez MD When: 1-2 weeks Please Follow Up With: Harley Arriaza MD When: 1-2 weeks Patient Instructions: Treating Pneumonia, Pneumonia Disposition: Home Minutes spent on discharge:: 45 Patient Condition:: Stable Medical Necessity - Tobacco Use Smoking Status: Former smoker Meaningful Use Info Meaningful Use Diagnoses (Choose all that apply): None applicable Code Visit Inpatient E&M: 70499 Disch Hosp
[2019-07-07] MEDS: HYDROcodone Bitartrate/Apap 5/325 Tablet PO (11:53)
[2019-07-07] MEDS: Heparin 10,000 UNITS/10 ML Vial IV (13:36)
[2019-07-07] MEDS: APIXABAN 2.5 MG TABLET PO (13:37)
[2019-07-07] MEDS: Cinacalcet HCl 30 MG Tablet 60 MG PO (13:38)
[2019-07-07] MEDS: Aspirin E.C. 81 MG Tablet PO (13:38)
[2019-07-07] MEDS: guaiFENesin 1,200 MG Tablet 1200 MG PO (13:45)
[2019-07-07 13:50] VITALS: BP 92/55; PULSE 98
[2019-07-07] MEDS: Metoprolol Tartrate 25 MG Tablet PO (13:50)
[2019-07-07] MEDS: FERRIC CITRATE 210 MG 840 MG PO (13:51)
--- NOTE | 2019-07-07 13:52 | PCM.PN.BLA ---
Progress Note seen on HD today see orders/flowsheets dc today will arrange abx as per ID recs will make appt for TDC removal
--- NOTE | 2019-07-07 13:53 | DIALYSIS ---
Hemodialysis tx completed x 4.5 hours without complications. Pt tolerated tx well, fluid removed 4,000ml. Vitals stable throughout tx. Verbal report given to RACHEL Lizama post tx. Next scheduled dialysis tx 07/09/19.
[2019-07-07 13:54] VITALS: BP 92/55; PULSE 98; RESP 18; TEMP 37.1; O2SAT 98
[2019-07-07 13:55] VITALS: PULSE 80
--- NOTE | 2019-07-07 14:00 | PCM.PN.ID ---
Patient Problems: Active and Suspected Problems (Last Reviewed 07/05/19 @ 03:05 by Lg Krishnan MD) Sepsis (Acute) Community acquired pneumonia (Acute) Bacteremia (Acute) Subjective: Feeling better, no fever, SOB improved - Physical Exam General: Alert, Cooperative, No apparent distress Lungs: Clear to auscultation, Normal air movement Cardiovascular: Regular rate, Regular Rhythm Abdomen: Soft, Non Tender, Non-Distended Skin: No rashes Vital Signs Temp Pulse Resp BP Pulse Ox 98.8 F 98 18 92/55 L 98 07/07/19 13:54 07/07/19 13:54 07/07/19 13:54 07/07/19 13:54 07/07/19 13:54 Oxygen Flow Rate (L/min) 2 Oxygen Delivery Method Room Air Weight: 133.08 kg Body Mass Index (BMI) 43.2 Orthostatic Vital Signs Start: 07/06/19 06:47 Freq: q24h Status: Active Protocol: Activity Type Activity Date Activity User E-Sign Co-Sign Detail Recorded Client Recorded Date Recorded By Document 07/06/19 06:47 CJY [id number] 07/06/19 06:48 CJY 07/06/19 06:47 Orthostatic Vitals Standing -Blood Pressure (90/60-120/80) 134/81 H -Extremity Use Left Arm Sitting -Blood Pressure (90/60-120/80) 141/70 H -Extremity Use Left Arm Lying -Blood Pressure (90/60-120/80) 101/37 L -Extremity Use Left Arm -Pulse Rate (60-100) 103 H Intake and Output for Last 24 Hours 07/05/19 07/06/19 07/07/19 23:59 23:59 23:59 Intake Total 1425 / 1905 1760 / 2240 880 / 880 Output Total 4300 / 8600 4300 / 4300 Balance -2875 / -6695 -2540 / -2060 880 / 880 Microbiology Past 72 Hours 07/05/19 16:50 Respiratory Panel (PCR) - Final Mucosa - Nose Laboratory Tests Past 24 Hrs 07/07/19 07/07/19 07:22 07:22 WBC 5.5 RBC 3.29 L Hgb 9.4 L Hct 31.0 L MCV 94.2 H MCH 28.6 MCHC 30.3 L RDW Std Deviation 56.7 H RDW Coeff of Lance 16.3 H Plt Count 235 MPV 10.5 Immature Gran % (Auto) 0.900 Neut % (Auto) 63.4 Lymph % (Auto) 18.3 L [place] % (Auto) 15.0 H Eos % (Auto) 2.0 Baso % (Auto) 0.4 Absolute Neuts (auto) 3.5 Absolute Lymphs (auto) 1.01 Nucleated RBC % 0 Sodium 134 L Potassium 4.7 Chloride 95 L Carbon Dioxide 28.0 Anion Gap 11 BUN 58 H Creatinine 11.80 H* Estim Creat Clear Calc 8.85 Est GFR (MDRD) Af Amer 6 L Est GFR (MDRD) Non-Af 5 L BUN/Creatinine Ratio 4.9 L Glucose 85 Calcium 8.3 L Medical Necessity - Tobacco Use Smoking Status: Former smoker Route of nutrition/ use of supplements: [] Nutritional Intake: [] IV Site: [] Call Catheter: [] - Assessment/Plan Antibiotics: [] Assessment/Plan: [] Active and Suspected Problems (Last Reviewed 07/05/19 @ 03:05 by Lg Krishnan MD) Sepsis (Acute) Community acquired pneumonia (Acute) Covering for CAP with ceftriaxone/azithro. Neg resp pcr panel. Sx improving. 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 Susc pending from 07/02. Should be covered by ceftriaxone. Ok for d/c home on 5 more doses of cefepime with HD. 2gm Mon, 2gm Fri, 3gm Friday. Will follow, d/w Dr. Fernandes.
[2019-07-07] MEDS: Acetaminophen 325 MG Tablet 650 MG PO (14:34)
--- NOTE | 2019-07-08 13:30 | CASEMGMT ---
RN SOHEILA DC PHONE CALL DC DATE: 07/07/19 DC Disposition: Home Diagnosis on Discharge: Sepsis, CAP LACE/STRATA: 14/4 Intro role of CM to patient via phone. Pt states he does not have questions re: f/u, appt made for Friday07/14/19 with Shahram Major, No questions re: medications or instructions. No care improvement suggestions were given. Tristen KENNEDY RN ACM
== END 2019-07-07 15:25 | disposition home or self-care (01) | DRG 193 ==
LOC: ED 07-05 01:57 → MS3 07-05 02:41
PROVIDERS: Admitting Provider Hospitalist; Emergency Provider Emergency Medicine; Family Provider Internal Medicine; PCP Internal Medicine; Visit Provider Student in an Organized Health Care Education/Training Program
DX: J18.9 Pneumonia, unspecified organism (principal); N18.6 End stage renal disease; I12.0 Hypertensive chronic kidney disease with stage 5 chronic kidney disease or end stage renal disease; N25.81 Secondary hyperparathyroidism of renal origin; Z68.41 Body mass index [BMI] 40.0-44.9, adult; J98.11 Atelectasis; I48.0 Paroxysmal atrial fibrillation; Z99.2 Dependence on renal dialysis; D63.1 Anemia in chronic kidney disease; E66.01 Morbid (severe) obesity due to excess calories; G47.30 Sleep apnea, unspecified; I05.0 Rheumatic mitral stenosis; Z79.899 Other long term (current) drug therapy; Z87.891 Personal history of nicotine dependence; Z79.02 Long term (current) use of antithrombotics/antiplatelets
CPT/HCPCS: 36415; 71045; 71046; 80048; 80053; 83605; 83880; 84484; 85025; 85610; 85730; 87040; 87070; 87077; 87186; 87205; 87633; 90937; 93005; 94640; 94667; 94668; 96365; 96366; 96367; 96375; 97162; 97165; 97530; 97802; 99251; 99285; J7030; J7040; A4216; G0257; G0463; J2405

== ENCOUNTER 2019-07-23 13:48 | Emergency (ER) | payer MEDICARE, SELFPAY ==
[2019-07-05 02:40] VITALS: BMI 43.2
[2019-07-23 13:55] VITALS: BP 113/75; PULSE 104; RESP 18; TEMP 36.6; O2SAT 99; BMI 41.1
--- NOTE | 2019-07-23 16:55 | ED.VIS.GEN ---
History of Present Illness Chief Complaint: Wound Informant: Patient Onset: Yesterday Context: Sudden Onset Timing: Continuous Narrative: She is evaluated for malfunction of his dialysis catheter in his left femoral region. Patient is not sure when it was placed. He does not use it anymore as he now has a graft in his right femoral region. Patient had a full session of hemodialysis today through the graft. He notes last night the catheter looked like it is been pulled out. He was evaluated at dialysis today and instructed to come to the ER for further management. Patient's web operations manager is Dr. Melgar. His vascular surgeon is Dr. Josue. Patient states he has mild discomfort at the site. He denies any other complaints at this time. He states he is otherwise feeling well. Past Medical History - Allergies and Home Meds Allergies/Adverse Reactions: Allergies No Known Allergies Allergy (Verified 07/23/19 13:52) Primary Care Physician: Pawel Banda MD [Primary Care Provider] - Past Medical History: - - Anemia of chronic disease, retention, mitral valve stenosis, sleep apnea, end-stage renal disease requiring hemodialysis Surgical History: herniorrhaphy, - - aVF x2, catheter placements, right upper extremity aneurysm removed. Smoking Status: Former smoker - Family History Paternal Family History: Family History (Last Reviewed 07/05/19 @ 03:05 by Lg Krishnan MD) Other Adopted Family History: Reports: - - Patient was adopted and does not know his maternal or paternal family history. Maternal Family History: Family History (Last Reviewed 07/05/19 @ 03:05 by Lg Krishnan MD) Other Adopted Family History: Reports: - - Patient was adopted and does not know his maternal or paternal family history. Review of Systems All systems negative except as indicated Skin: Reports: - - Dislodgment of left femoral dialysis catheter Physical Exam Vital Signs/Narrative: Vital Signs Temp Pulse Resp BP Pulse Ox 07/23/19 13:55 97.8 F 104 H 18 113/75 99 Inital Vital Signs reviewed: Yes General: Well nourished, Well developed, No Acute Distress Head: Normocephalic, Atraumatic Eyes: Perrl, EOMI ENT: Moist mucous membranes, No rhinorrhea Neck: Supple, Nontender Cardiovascular: Regular rate, Regular rhythm Respiratory: No distress, CTA bilaterally, Chest nontender Abdomen: Soft, Nontender, Nondistended, Normal bowel sounds Back: Nontender, Normal Inspection Extremities: Nontender, No edema, - - AV fistula of right femoral artery with palpable thrill Skin: Normal color, No rash, - - Hemodialysis catheter left groin with cuff exposed in approximately 10 cm of the proximal to being exposed as well Neurological: Alert, Oriented x3, Cranial nerves II-XII grossly intact, Normal Strength, Normal Sensation Psychological: Normal affect, Normal Mood Diagnostic/Tx/Re-eval - Medical Decision Making Patient is evaluated for dislodgment of his left femoral dialysis catheter. Patient is no longer using it and has a functioning graft of the right femoral area. He had dialysis there today. Initially I contacted his vascular surgeon who states that he did not place the catheter so he cannot give me further recommendations. I then discussed with his web operations manager space controller who feels comfortable with as pulling the catheter since the cuff is now exposed it cannot be replaced. Patient is otherwise well-appearing. I did pull the catheter and pressure was held for 15 minutes. Patient was ambulated and had no further bleeding. An occlusive dressing was placed. Patient was counseled as of generalized wound care. He will continue to follow-up with dialysis as scheduled. Patient is counseled on signs and symptoms requiring return to the emergency room. Patient verbalizes agreement and understand this plan. Patient discharged home in stable and improved condition. ED Disposition - Plan for ED Patient: Disposition: Home or Assisted Living Diagnosis: Hemodialysis catheter malfunction Referrals: Pawel Banda MD [Primary Care Provider] - Additional Instructions: Your hemodialysis catheter was removed today. If the site start to bleed again apply pressure. If you have significant bleeding or the bleeding does not stop within 10 to 15 minutes please return to the emergency room. Otherwise follow-up for hemodialysis as scheduled.
--- NOTE | 2019-07-23 17:00 | ED.RN ---
Pressure applied by this nurse for 15min to after MD removed dialysis cath.
[2019-07-23 18:01] VITALS: BP 116/77; PULSE 106; RESP 16; O2SAT 100
== END 2019-07-23 18:04 | disposition home or self-care (01) ==
PROVIDERS: Emergency Provider Emergency Medicine; Family Provider Internal Medicine; PCP Internal Medicine
DX: T82.41XA Breakdown (mechanical) of vascular dialysis catheter, initial encounter (principal); N18.6 End stage renal disease; Z99.2 Dependence on renal dialysis; D63.1 Anemia in chronic kidney disease; G47.30 Sleep apnea, unspecified; I05.0 Rheumatic mitral stenosis; Z87.891 Personal history of nicotine dependence
CPT/HCPCS: 99282

== ENCOUNTER 2019-08-03 17:46 | Emergency (ER) | payer MEDICARE, SELFPAY ==
[2019-08-03 17:47] VITALS: BP 139/80; PULSE 107; RESP 18; TEMP 36.9; O2SAT 100; BMI 40.6
--- NOTE | 2019-08-03 18:09 | ED.DCSUM_ITS ---
- ER Visit Summary Date of Service: 08/03/19 Chief Complaint: Right shoulder pain History of Present Illness: The patient is a 39 M presenting with right shoulder pain. This started on Friday. Patient does not recall a specific injury. He has chronic pain in his left shoulder. He has pain with movement of his right shoulder in different positions. Denies fever. Denies other complaints. Physical Examination: Vitals are stable. Patient is afebrile. Alert no acute distress. HEENT exam is unremarkable. Neck is supple, nontender Lungs are clear and equal bilaterally. Heart is regular rate and rhythm. Abdomen is soft nontender nondistended. Extremities right anterior shoulder tenderness, painful range of motion. No erythema or warmth. Neurovascularly intact distally. Skin is warm and dry. No focal neurologic deficit. Remainder of exam is unremarkable. Emergency Department Course and Treatment: Right shoulder x-ray shows advanced arthrosis of the right glenohumeral joint with sclerosis and irregularity of the right humeral head and glenoid which may be consistent with avascular necrosis as clinically indicated. Patient was given morphine, Zofran IM. He was given a sling and advised range of motion exercises. Advised to follow-up with orthopedics. Advised return to ED for worsening complaints. Disposition: Discharge home Impression: Right shoulder pain, advanced arthrosis This note was generated with [employer] dictation software. It may contain incorrect words, spelling, and punctuation that were not noted in review of the chart prior to signing ED Disposition - Plan for ED Patient: Instructions: Osteoarthritis: Managing Pain Prescriptions: Hydrocodone Bitart/Apap 5-325 [[place] 5MG-325MG] 1 tab PO Q6H PRN PRN 3 Days #10 tab PRN Reason: Pain Prescription Printed Referrals: Pawel Banda MD [Primary Care Provider] - Lg Denny DO [STAFF PHYSICIAN] -
--- NOTE | 2019-08-03 18:16 | RAD_ITS ---
STUDY: X-RAY - RIGHT SHOULDER REASON FOR EXAM: Male, 39 years old. Chronic right shoulder pain TECHNIQUE: 4 view(s) of the shoulder. COMPARISON: MRI shoulder left 12/24/2018. FINDINGS: Advanced degenerative disease is noted at the right glenohumeral joint with evidence of sclerosis or subchondral cyst formation. No acute fracture or dislocation is identified. The partially visualized chest demonstrates extensive diffuse opacities. 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 Electronically Signed: Sourav Elizabeth, at 19:02 EST Tel , Service support ,
[2019-08-03] MEDS: Ondansetron 4 MG/2 ML Vial IM (18:36)
[2019-08-03] MEDS: morphine 8 MG/ML Syringe IM (18:40)
[2019-08-03 18:42] VITALS: RESP 18
--- NOTE | 2019-08-03 19:24 | DCINST.ED_ITS ---
ED Disposition - Plan for ED Patient: Instructions: Osteoarthritis: Managing Pain Prescriptions: Hydrocodone Bitart/Apap 5-325 [[place] 5MG-325MG] 1 tablet PO Q6H PRN PRN 3 Days #10 tablet PRN Reason: Pain Referrals: Pawel Banda MD [Primary Care Provider] - Lg Denny DO [STAFF PHYSICIAN] -
[2019-08-03 19:37] VITALS: RESP 18
== END 2019-08-03 19:37 | disposition home or self-care (01) ==
LOC: ED 18:40
PROVIDERS: Emergency Provider Emergency Medicine; Family Provider Internal Medicine; PCP Internal Medicine
DX: M19.011 Primary osteoarthritis, right shoulder (principal); M25.511 Pain in right shoulder; I12.0 Hypertensive chronic kidney disease with stage 5 chronic kidney disease or end stage renal disease; N18.6 End stage renal disease; Z99.2 Dependence on renal dialysis
CPT/HCPCS: 73030; 96372; 99283; J2405

== ENCOUNTER 2019-08-22 21:05 | Emergency (ER) | payer MEDICARE, SELFPAY ==
[2019-08-22 21:07] VITALS: BP 149/86; PULSE 116; RESP 16; TEMP 36.2; O2SAT 100; BMI 40.8
[2019-08-22] MEDS: Ondansetron 4 MG/2 ML Vial IV (22:41)
[2019-08-22] MEDS: Morphine 4 MG/ML Syringe IV (22:41)
[2019-08-22 22:49] LABS: Absolute Lymphocyte Count 0.83 X10^3/uL (0.83-4.51); Absolute Neutrophil Count 6.1 X10^3/uL (2.0-7.7); Basophil# 0.03 X10^3/uL; Basophil% 0.4 % (0-1); Eosinophil# 0.52 X10^3/uL; Eosinophils% 6.4 % (0-5); Hematocrit 34.2 % (40-54); Hemoglobin 10.8 g/dL (13.0-16.5); Lymphocyte # 0.83 X10^3/ul (4.0); Lymphocyte % 10.2 % (19-41); Mean Corp Hgb Conc 31.6 g/dL (32-36); Mean Platelet Vol. 10.9 fl (6.2-12.0); Monocyte# 0.65 X10^3/uL; NRBC Flagged by Analyzer 0 % (0-5); Neutrophil # 6.08 X10^3/uL (2.7-7.7); Neutrophil % 74.5 % (47-70); Platelet Count 192 K/mm3 (150-450); RBC Distribution Width CV 15.6 % (11.6-14.6); RBC Distribution Width SD 54.1 fl (35.1-43.9); White Blood Count 8.2 K/mm3 (4.4-11.0)
[2019-08-22 23:27] LABS: ALB/GLOB Ratio 0.6 RATIO (0.9-2.4); AST(SGOT) 18 U/L (15-37); Alanine Aminotransfer ALT/SGPT 14 U/L (16-61); Albumin, Serum 3.1 g/dL (3.2-5.0); Alkaline Phosphatase 75 U/L (45-117); Anion Gap 8 (5-15); BUN 20 mg/dL (7-18); BUN/Creat Ratio 3.3 RATIO (10-20); Calcium,Total 8.6 mg/dL (8.5-10.1); Chloride 96 mmol/L (98-107); Creatinine, Serum 5.99 mg/dL (0.70-1.30); EST Glomerular Filtration Rate 11 mL/min (>60); Est Glom Filt Rate - Afr Amer 14 mL/min (>60); Estimated Creatinine Clearance 17.43 ml/min; Globulin 5.1 g/dL (2.2-4.2); Glucose 86 mg/dL (74-106); Lipase 185 U/L (73-393); Potassium 4.2 mmol/L (3.5-5.1); Protein, Total 8.2 g/dL (6.4-8.2); Sodium Level 137 mmol/L (136-145)
--- NOTE | 2019-08-23 00:41 | ED.VISSUMM ---
- ER Visit Summary Date of Service: 08/23/19 Chief Complaint: Abdominal pain History of Present Illness: The patient is a 39 M who presents with abdominal pain is been constant for the past 3 days. Patient describes pain as dull. Patient states the pain is diffuse across his abdomen. Patient states the pain is worse after eating. Patient admits to nausea but denies any vomiting. Patient denies any diarrhea, melena, or hematochezia. Patient has a history of chronic kidney disease and does not make any urine. Patient goes to dialysis on Friday and Friday normally however due to the holiday he had dialysis today. Patient states it was a full session. Patient also admits to some mild pain in his back. Physical Examination: Vital signs are stable except for mild tachycardia of 116. Patient is afebrile. Patient is in no acute distress. Oral mucosa is pink and moist. Neck is supple. Trachea is midline. There is no JVD. Heart was regular and tachycardic. Lungs are clear and equal bilaterally. Abdomen is soft. Bowel sounds are normal. There is diffuse tenderness. There is no rebound or guarding noted. Cranial nerves II through XII are intact. There are no focal motor or sensory deficits noted. Test Results: CBC shows normal white blood cell count. Hemoglobin was 10.8 and hematocrit was 34.2. Basic metabolic profile was obtained. BUN was 20 and creatinine was 5.9. This was improved from previous results. Lipase was normal at 185. Emergency Department Course and Treatment: Patient was given a dose of morphine and Zofran here. Patient felt better on reevaluation. Patient was concerned going home that he would have further cramping. Patient was given a prescription for Bentyl. Patient was instructed to follow-up with his primary care physician in 5 to 7 days. Patient understood and was agreeable with the plan. All questions were answered. Disposition: Discharge home Impression: Abdominal pain This note was generated with [employer] dictation software. It may contain incorrect words, spelling, and punctuation that were not noted in review of the chart prior to signing ED Disposition - Plan for ED Patient: Disposition: Home or Assisted Living Diagnosis: Abdominal pain Instructions: ABDOMINAL PAIN, Unkown Cause, (Male) Prescriptions: Dicyclomine HCl [Bentyl] 20 mg PO TIDAC #20 cap Prescription Printed Referrals: Pawel Banda MD [Primary Care Provider] - 3-5 Days
[2019-08-23 00:53] VITALS: BP 108/75; PULSE 106; RESP 17; O2SAT 98
== END 2019-08-23 00:55 | disposition home or self-care (01) ==
PROVIDERS: Emergency Provider Emergency Medicine; Family Provider Internal Medicine; PCP Internal Medicine
DX: R10.9 Unspecified abdominal pain (principal); I12.0 Hypertensive chronic kidney disease with stage 5 chronic kidney disease or end stage renal disease; N18.9 Chronic kidney disease, unspecified; Z99.2 Dependence on renal dialysis
CPT/HCPCS: 80053; 83690; 85025; 96374; 96375; 99285; A4216; J2405

== ENCOUNTER 2019-09-07 20:56 | Emergency (ER) | payer MEDICARE, SELFPAY ==
[2019-09-07 20:57] VITALS: BP 138/81; PULSE 99; RESP 15; TEMP 36.4; O2SAT 99; BMI 41.8
--- NOTE | 2019-09-07 21:19 | ED.DCSUM_ITS ---
History of Present Illness Chief Complaint: Upper Extremity Injury Narrative: Patient presenting for evaluation secondary to right shoulder pain. Patient reports that he has chronic issues with shoulder pain, but it has somewhat gotten worse over the course of the last couple of days. 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 No injuries. Patient has not had any sort of fevers, night sweats, or any unintended weight loss. Patient reports that he has been taking [id number] medications at home with minimal relief. Review of systems otherwise negative. Past Medical History - Allergies and Home Meds Allergies/Adverse Reactions: Allergies No Known Allergies Allergy (Verified 09/07/19 20:56) Primary Care Physician: Pawel Banda MD [Primary Care Provider] - Past Medical History: - - End-stage renal disease Surgical History: herniorrhaphy, - - aVF x2, catheter placements, right upper extremity aneurysm removed. Smoking Status: Former smoker - Family History Paternal Family History: Family History (Last Reviewed 07/05/19 @ 03:05 by Lg Krishnan MD) Other Adopted Family History: Reports: - - Patient was adopted and does not know his maternal or paternal family history. Maternal Family History: Family History (Last Reviewed 07/05/19 @ 03:05 by Lg Krishnan MD) Other Adopted Family History: Reports: - - Patient was adopted and does not know his maternal or paternal family history. Review of Systems All systems negative except as indicated General: Denies: Chills, Fever, Sweats Eyes: Denies: Visual changes - bilaterally, Diplopia ENT: Denies: Rhinorrhea, Sore throat Cardiovascular: Denies: Chest pain, Palpitations Respiratory: Denies: Dyspnea, Cough, Dyspnea on exertion Gastrointestinal: Denies: Abdominal pain, Nausea, Vomiting, Diarrhea, Melena, Hematochezia Genitourinary: Denies: Dysuria, Hematuria, Frequency Musculoskeletal: Reports: Extremity Pain Skin: Denies: Rash, Wounds Neurological: Denies: Headache, Weakness, Numbness Physical Exam Vital Signs/Narrative: Vital Signs Temp Pulse Resp BP Pulse Ox 09/07/19 20:57 97.6 F L 99 15 138/81 H 99 Right Shoulder: - - Examination the patient's right shoulder shows no evidence of warmth erythema or joint effusion. No evidence of overlying skin changes. Limited range of motion secondary to pain. No crepitus with range of motion. Normal distal sensation and pulses. General: Well nourished, Well developed Head: Normocephalic Eyes: EOMI ENT: No Trauma Neck: Full ROM Cardiovascular: Regular rate, Regular rhythm Respiratory: No distress Skin: Normal color Neurological: Alert, Oriented x3 Psychological: Normal affect Diagnostic/Tx/Re-eval - Medical Decision Making Patient presented secondary to acute on chronic right shoulder pain. 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 That likely is the cause of his pain. I informed the patient that he likely is heading towards operative repair of this, and that no additional interventions are indicated in the emergency department. Patient will be given a referral back to his orthopedist, will be given a dose of Prescott for pain, and will be given a short course of Prescott for outpatient treatment. Disposition: Home ED Disposition - Plan for ED Patient: Disposition: Home or Assisted Living Diagnosis: Arthrosis of right shoulder Instructions: SHOULDER PAIN (Uncertain Cause) Prescriptions: Hydrocodone Bitart/Apap 5-325 [Prescott 5MG-325MG] 1 tab PO Q6H PRN PRN 3 Days #12 tab PRN Reason: Pain Prescription Printed Referrals: Lg Denny DO [STAFF PHYSICIAN] - 1 Week
[2019-09-07] MEDS: HYDROcodone Bitartrate/Apap 5/325 Tablet PO (21:37)
== END 2019-09-07 21:42 | disposition home or self-care (01) ==
PROVIDERS: Emergency Provider Emergency Medicine; Family Provider Internal Medicine; PCP Internal Medicine
DX: M19.011 Primary osteoarthritis, right shoulder (principal); N18.6 End stage renal disease; Z87.891 Personal history of nicotine dependence
CPT/HCPCS: 99283

== ENCOUNTER 2019-09-30 17:29 | Emergency (ER) | payer MEDICARE, SELFPAY ==
[2019-09-30] VITALS (7 sets, daily range): BP systolic 96–115; BP diastolic 52–97; PULSE 105–113; RESP 16–26; TEMP 36.3; O2SAT 97–100; BMI 41.3
--- NOTE | 2019-09-30 18:24 | ED.RN ---
RN TO BEDSIDE TO EVALUATE PATIENT. PATIENT IS COMPLAINING OF STABBING CHEST PAIN. RN CALLED FOR EKG AT THIS TIME. PT ALSO REQUESTING TO HAVE O2 NC. RN PLACED PATIENT ON PULSE OX WITH RESULT OF 98%. RESPIRATIONS ARE EQUAL AND UNLABORED AT THIS TIME. RN WILL CONTINUE TO MONITOR FOR OXYGEN REQUIREMENTS.
--- NOTE | 2019-09-30 18:59 | EKG12_ITS ---
Test Reason : CP Blood Pressure : / mmHG Vent. Rate : 106 BPM Atrial Rate : 106 BPM P-R Int : 160 ms QRS Dur : 066 ms QT Int : 348 ms P-R-T Axes : 073 125 068 degrees QTc Int : 462 ms Sinus tachycardia Possible Left atrial enlargement Right axis deviation Septal infarct , age undetermined Abnormal ECG Confirmed by SALMA STAHL, JACOBY ([id number]), pictures editor MARGARITO CHANDLER ([id number]) on 10/04/2019 12:45:44 PM Referred By: EARL Confirmed By:JACOBY MARSH MD
[2019-09-30] MEDS: Ipratropium/Albuterol Sulfate 3 ML AMPUL.NEB INHALATION (19:12)
[2019-09-30 19:24] LABS: Absolute Lymphocyte Count 0.77 X10^3/uL (0.83-4.51); Absolute Neutrophil Count 2.8 X10^3/uL (2.0-7.7); Basophil# 0.02 X10^3/uL; Basophil% 0.4 % (0-1); Eosinophil# 0.55 X10^3/uL; Eosinophils% 11.2 % (0-5); Hematocrit 31.9 % (40-54); Hemoglobin 10.1 g/dL (13.0-16.5); Lymphocyte # 0.77 X10^3/ul (4.0); Lymphocyte % 15.7 % (19-41); Mean Corp Hgb Conc 31.7 g/dL (32-36); Mean Corpuscular Hgb 30.6 pg (27.0-32.0); Mean Corpuscular Volume 96.7 fL (80-94); Mean Platelet Vol. 10.8 fl (6.2-12.0); Monocyte% 16.3 % (0-10); NRBC Flagged by Analyzer 0 % (0-5); Neutrophil # 2.75 X10^3/uL (2.7-7.7); Platelet Count 185 K/mm3 (150-450); RBC Distribution Width CV 14.7 % (11.6-14.6); RBC Distribution Width SD 52.9 fl (35.1-43.9); White Blood Count 4.9 K/mm3 (4.4-11.0)
--- NOTE | 2019-09-30 19:48 | ED.VIS.FLU ---
History of Present Illness Chief Complaint: Cold Sx Informant: Patient Known exposure: No Onset: Days Associated Symptoms: Chills, Cough, Ear pain Chest Pain: Aching Narrative: Patient is a 39-year-old male with history of end-stage renal disease on hemodialysis presenting with cough, shortness of breath and flulike symptoms. Patient states his symptoms started about a week ago and he is been feeling worse over the past few days. He has a nonproductive cough. He denies any myalgias but states he has central chest pain as well as pain in between his shoulder blades. He describes as aching in nature. He has associated sore throat and nasal congestion. He also has left ear pain. He has associated headache. He denies any fever. He denies any nausea, vomiting or abdominal pain. He does not make urine at baseline. Patient's last hemodialysis was on Friday and was a full session. He has a scheduled appointment tomorrow. He notes the schedule is off because of the holidays. He is not taking anything at home for his symptoms. He denies any other complaints at this time. Past Medical History - Allergies and Home Meds Allergies/Adverse Reactions: Allergies No Known Allergies Allergy (Verified 09/07/19 20:56) Primary Care Physician: Pawel Banda MD [Primary Care Provider] - Past Medical History: - - ESRD- on HD, [facility] Surgical History: herniorrhaphy, - - aVF x2, catheter placements, right upper extremity aneurysm removed. Smoking Status: Former smoker - Family History Paternal Family History: Family History (Last Reviewed 07/05/19 @ 03:05 by Lg Krishnan MD) Other Adopted Family History: Reports: - - Patient was adopted and does not know his maternal or paternal family history. Maternal Family History: Family History (Last Reviewed 07/05/19 @ 03:05 by Lg Krishnan MD) Other Adopted Family History: Reports: - - Patient was adopted and does not know his maternal or paternal family history. Review of Systems General: Reports: Chills, Malaise. Denies: Fever, Sweats ENT: Reports: Left ear pain. Denies: Rhinorrhea, Sore throat Cardiovascular: Reports: Chest pain. Denies: Palpitations Respiratory: Reports: Dyspnea, Cough. Denies: Dyspnea on exertion Gastrointestinal: Denies: Abdominal pain, Nausea, Vomiting, Diarrhea, Melena, Hematochezia Genitourinary: Denies: Dysuria, Hematuria, Frequency Musculoskeletal: Reports: Back pain. Denies: Swelling, Extremity Pain Skin: Denies: Rash Neurological: Denies: Headache, Weakness, Numbness Physical Exam Vital Signs/Narrative: Vital Signs Temp Pulse Resp BP Pulse Ox 09/30/19 17:30 97.4 F L 113 H 16 115/79 97 Inital Vital Signs reviewed: Yes General: Well nourished, Well developed Head: Normocephalic, Atraumatic Eyes: Perrl, EOMI ENT: Moist mucous membranes, - - Erythema and loss of landmarks of the left tympanic membrane. Right tympanic membrane is normal Neck: Supple, Nontender, No lymphadenopathy, No JVD Cardiovascular: Regular rate, Regular rhythm, No murmurs Respiratory: No distress, Diminished, Decreased Air Movement. Negative for: Rhonchi, Wheezing Abdomen: Soft, Nontender, Nondistended, Normal bowel sounds Back: Nontender, Normal Inspection Extremities: Nontender, No edema Skin: Normal color, No rash Neurological: Alert, Oriented x3, Cranial nerves II-XII grossly intact, Normal Strength, Normal Sensation Psychological: Normal affect Diagnostic/Tx/Re-eval Chest X-Ray - ED: 2 View, Read by ED Physician, Read by Radiologist, Left Infiltrate Clinical Impression(s) from Imaging Studies Chest X-Ray 09/30/19 19:50 IMPRESSION: Extensive bilateral airspace disease is noted. Right lung findings are improved from a prior study of July 04, 2019. Left perihilar airspace disease is presently seen, new in the interval. There is moderately severe thoracic dextroscoliosis. Electronically Signed: Salvador Carrero MD at 20:13 EST , Service support , Laboratory Data 09/30/19 09/30/19 09/30/19 19:16 19:16 19:16 WBC 4.9 RBC 3.30 L Hgb 10.1 L Hct 31.9 L MCV 96.7 H MCH 30.6 MCHC 31.7 L RDW Std Deviation 52.9 H RDW Coeff of Lance 14.7 H Plt Count 185 MPV 10.8 Immature Gran % (Auto) 0.400 Neut % (Auto) 56.0 Lymph % (Auto) 15.7 L [place] % (Auto) 16.3 H Eos % (Auto) 11.2 H Baso % (Auto) 0.4 Absolute Neuts (auto) 2.8 Absolute Lymphs (auto) 0.77 L Nucleated RBC % 0 Sodium 138 Potassium 4.8 Chloride 99 Carbon Dioxide 30.0 Anion Gap 9 BUN 78 H Creatinine 12.50 H* Estim Creat Clear Calc 8.35 Est GFR (MDRD) Af Amer 6 L Est GFR (MDRD) Non-Af 5 L BUN/Creatinine Ratio 6.2 L Glucose 119 H Lactic Acid 0.9 Calcium 8.6 Troponin I < 0.015 - Rhythm Strip Rhythm Strip: Sinus Rhythm Rate: 106 Ectopy: None - EKG Initial EKG Interpretation: Sinus Tachycardia, - - Sinus tachycardia at a rate of 106 Normal intervals Rightward axis Normal ST segments Treatments: Albuterol, - - Levaquin - Medical Decision Making Patient is evaluated for 1 week of flulike symptoms and cough. He is mildly tachycardic in the emergency room. He is not hypoxic.Patient is given a dose of Toradol as well as a DuoNeb in the ER for symptoms. On reevaluation he does have improvement. Chest x-ray does not show increased interstitial predominance on the left.. I suspect this might be an acute infiltrate. Because patient does have end-stage renal disease he will be treated with Levaquin for pneumonia. He is good first dose in the emergency room. Patient lab work is otherwise is at his baseline. He is mildly anemic but this is consistent with someone with end-stage renal disease. He does have a normal white blood cell count. His BMP does show significantly elevated creatinine however patient is due for dialysis tomorrow. He is not uremic. His potassium is normal. Normal troponin as well as a normal lactic acid. At this time I feel the patient is stable for outpatient follow-up. Patient is counseled on signs and symptoms requiring return to the emergency room. Patient verbalizes agreement and understand this plan. Patient discharged home in stable and improved condition. ED Disposition - Plan for ED Patient: Disposition: Home or Assisted Living Diagnosis: Community acquired pneumonia Instructions: PNEUMONIA (Adult) Prescriptions: levoFLOXacin tablet [Levaquin tablet] 750 mg PO DAILY #4 tab Prescription Printed Referrals: Pawel Banda MD [Primary Care Provider] - Additional Instructions: Your chest x-ray looks like you have pneumonia on the left side. This is likely the cause of your symptoms. Please complete the entire course of antibiotics. Please make sure you go to hemodialysis tomorrow. Return to emergency room with any worsening symptoms. Take Tylenol as needed for pain/discomfort
[2019-09-30 19:49] LABS: Lactic Acid 0.9 mmol/L (0.4-1.9)
[2019-09-30] MEDS: Ketorolac 15 MG/ML Vial IV (19:49)
--- NOTE | 2019-09-30 19:50 | RAD_ITS ---
STUDY: X-RAY CHEST REASON FOR EXAM: Male, 39 years old. shortness of breath, Hx pneumonia TECHNIQUE: PA and lateral views of the chest. COMPARISON: Previous study of July 04, 2019 FINDINGS: Extensive bilateral airspace disease is noted. Right lung findings are improved in the interval. Left perihilar airspace disease is presently seen, new in the interval. There is no demonstrated pleural abnormality. Normal size heart. Normal mediastinum and michael. Normal visualized pulmonary arteries. Normal visualized aortic arch and descending thoracic aorta. There is a moderately severe thoracic dextroscoliosis. Normal visualized ribs, clavicles, and shoulders. There is no demonstrated abnormality of the visualized soft tissue structures of the upper abdomen. RAD/Chest PA and Lateral IMPRESSION: Extensive bilateral airspace disease is noted. Right lung findings are improved from a prior study of July 04, 2019. Left perihilar airspace disease is presently seen, new in the interval. There is moderately severe thoracic dextroscoliosis. Electronically Signed: Salvador Carrero MD at 20:13 EST , Service support ,
[2019-09-30 20:30] LABS: Anion Gap 9 (5-15); BUN 78 mg/dL (7-18); BUN/Creat Ratio 6.2 RATIO (10-20); Calcium,Total 8.6 mg/dL (8.5-10.1); Chloride 99 mmol/L (98-107); EST Glomerular Filtration Rate 5 mL/min (>60); Est Glom Filt Rate - Afr Amer 6 mL/min (>60); Estimated Creatinine Clearance 8.35 ml/min; Glucose 119 mg/dL (74-106); Potassium 4.8 mmol/L (3.5-5.1); Sodium Level 138 mmol/L (136-145)
--- NOTE | 2019-09-30 20:50 | ED.RN ---
pt states he's short of breath and wants o2. o2 on room air is 97. 2L of NC placed for pt comfort.
[2019-09-30] MEDS: levoFLOXacin 750 MG Tablet PO (21:48)
== END 2019-09-30 21:48 | disposition home or self-care (01) ==
PROVIDERS: Emergency Provider Emergency Medicine; Family Provider Internal Medicine; PCP Internal Medicine
DX: J18.9 Pneumonia, unspecified organism (principal); N18.6 End stage renal disease; G47.33 Obstructive sleep apnea (adult) (pediatric); Z99.2 Dependence on renal dialysis; Z87.891 Personal history of nicotine dependence
CPT/HCPCS: 71046; 80048; 83605; 84484; 85025; 87804; 93005; 94640; 96374; 99285; A4216

== ENCOUNTER 2019-10-13 18:57 | Emergency (ER) | payer MEDICARE, SELFPAY ==
[2019-09-30 17:30] VITALS: BMI 41.3
[2019-10-13 18:58] VITALS: BP 131/72; PULSE 117; RESP 19; TEMP 37.8; O2SAT 97; BMI 40.1
[2019-10-13 19:22] VITALS: BP 109/50; PULSE 114; RESP 16; O2SAT 98
[2019-10-13] MEDS: Ipratropium/Albuterol Sulfate 3 ML AMPUL.NEB INHALATION (20:37)
[2019-10-13 20:38] VITALS: PULSE 113; RESP 20
--- NOTE | 2019-10-13 20:43 | RAD_ITS ---
STUDY: X-RAY CHEST REASON FOR EXAM: Male, 39 years old. Shortness of breath TECHNIQUE: Frontal and lateral views COMPARISON: September 30, 2019 FINDINGS: The lungs are clear and expanded. There is no demonstrated pleural abnormality. Normal size heart. Normal mediastinum and michael. Normal visualized pulmonary arteries. Normal visualized aortic arch and descending thoracic aorta. Stable scoliosis of the thoracic spine. Old deformity of the left humeral head. Degenerative right shoulder changes. There is no demonstrated abnormality of the visualized soft tissue structures of the upper abdomen. RAD/Chest PA and Lateral IMPRESSION: No acute pulmonary pathology of the chest. Electronically Signed: Kendall Rock DO at 21:02 EST Tel [phone], Service support ,
[2019-10-13 20:44] LABS: Absolute Lymphocyte Count 1.05 X10^3/uL (0.83-4.51); Absolute Neutrophil Count 4.1 X10^3/uL (2.0-7.7); Basophil# 0.05 X10^3/uL; Basophil% 0.7 % (0-1); Eosinophil# 0.42 X10^3/uL; Eosinophils% 6.1 % (0-5); Hematocrit 31.8 % (40-54); Hemoglobin 10.1 g/dL (13.0-16.5); Lymphocyte # 1.05 X10^3/ul (4.0); Lymphocyte % 15.2 % (19-41); Mean Corp Hgb Conc 31.8 g/dL (32-36); Mean Corpuscular Hgb 30.4 pg (27.0-32.0); Mean Corpuscular Volume 95.8 fL (80-94); Mean Platelet Vol. 10.4 fl (6.2-12.0); Monocyte# 1.23 X10^3/uL; Monocyte% 17.8 % (0-10); NRBC Flagged by Analyzer 0 % (0-5); Neutrophil # 4.11 X10^3/uL (2.7-7.7); Neutrophil % 59.6 % (47-70); Platelet Count 156 K/mm3 (150-450); RBC Distribution Width CV 15.5 % (11.6-14.6); RBC Distribution Width SD 53.8 fl (35.1-43.9); Red Blood Count 3.32 M/mm3 (4.6-6.2); White Blood Count 6.9 K/mm3 (4.4-11.0)
[2019-10-13 21:05] VITALS: BP 107/72; PULSE 111; RESP 20; O2SAT 96
[2019-10-13 21:11] LABS: ALB/GLOB Ratio 0.6 RATIO (0.9-2.4); AST(SGOT) 12 U/L (15-37); Alanine Aminotransfer ALT/SGPT 13 U/L (16-61); Alkaline Phosphatase 71 U/L (45-117); Anion Gap 6 (5-15); BUN 32 mg/dL (7-18); BUN/Creat Ratio 4.6 RATIO (10-20); Calcium,Total 8.7 mg/dL (8.5-10.1); Chloride 95 mmol/L (98-107); EST Glomerular Filtration Rate 9 mL/min (>60); Est Glom Filt Rate - Afr Amer 11 mL/min (>60); Estimated Creatinine Clearance 14.92 ml/min; Globulin 5.1 g/dL (2.2-4.2); Glucose 98 mg/dL (74-106); Potassium 4.6 mmol/L (3.5-5.1); Protein, Total 8.1 g/dL (6.4-8.2); Sodium Level 134 mmol/L (136-145)
--- NOTE | 2019-10-13 22:04 | ED.DCSUM_ITS ---
- ER Visit Summary Date of Service: 10/13/19 Chief Complaint: Cough History of Present Illness: The patient is a 39 M who presents with a cough that is been constant for the past 2 weeks. Patient states that today while he was coughing he felt lightheaded like he was going to pass out. Patient states his vision kind of went black. Patient also admits to some pain in his chest and throat. Patient states it feels sore. Patient states his pain is worse with coughing. Patient denies any fevers or chills. Patient states he was recently treated with Levaquin for pneumonia. Patient states he does not feel any better after completing the course of Levaquin. Physical Examination: Vital signs are stable except for mild tachycardia of 117. Patient is afebrile. Patient is in no acute distress. Oral mucosa is pink and moist. Neck is supple. Trachea is midline. There is no JVD. Heart was regular and tachycardic. Lungs showed few scattered rhonchi. Abdomen is soft and nontender. Cranial nerves II through XII are intact. There are no focal motor or sensory deficits noted. Test Results: PA and lateral chest x-ray was obtained. There is no acute cardiopulmonary process. The prior pneumonia has resolved. This was interpreted by the radiologist and myself. CBC shows a mild anemia with a hemoglobin of 10.1 and hematocrit 31.8. Basic metabolic profile shows a BUN of 32 and creatinine of 7.0. These are stable compared to previous results. Emergency Department Course and Treatment: Patient was given a DuoNeb here. Patient was feeling better on reevaluation. Patient was given a prescription f or an albuterol inhaler. Patient was instructed to follow-up with his primary care physician in 5 to 7 days. Patient was instructed to continue dialysis as scheduled. Patient understood and was agreeable with the plan. All questions were answered. Disposition: Discharge home Impression: Dyspnea This note was generated with Win[employer]be dictation software. It may contain incorrect words, spelling, and punctuation that were not noted in review of the chart prior to signing ED Disposition - Plan for ED Patient: Disposition: Home or Assisted Living Diagnosis: Dyspnea Instructions: ED Dyspnea Prescriptions: Albuterol Inhaler [Ventolin Hfa] 2 puff INHALATION Q4H PRN PRN #1 inhaler PRN Reason: Wheezing Prescription Printed Referrals: Pawel Banda MD [Primary Care Provider] - 3-5 Days
[2019-10-13 22:09] VITALS: BP 106/64; PULSE 114; RESP 20; TEMP 37.4; O2SAT 98
[2019-10-13 22:34] VITALS: BP 79/59; PULSE 118; RESP 19; O2SAT 98
== END 2019-10-13 22:44 | disposition home or self-care (01) ==
PROVIDERS: Emergency Provider Emergency Medicine; PCP Internal Medicine
DX: R06.00 Dyspnea, unspecified (principal); J02.9 Acute pharyngitis, unspecified; R07.9 Chest pain, unspecified; R05 Cough; R11.2 Nausea with vomiting, unspecified; M54.9 Dorsalgia, unspecified; R51 Headache; R42 Dizziness and giddiness; E66.9 Obesity, unspecified; D64.9 Anemia, unspecified; N18.6 End stage renal disease; Z99.2 Dependence on renal dialysis; Z87.01 Personal history of pneumonia (recurrent); Z79.899 Other long term (current) drug therapy
CPT/HCPCS: 71046; 80053; 85025; 94640; 99282; A4216

== ENCOUNTER 2019-11-08 06:43 | Inpatient (IN) | payer MEDICARE, MEDICAID, SELFPAY ==
[2019-11-08] VITALS (13 sets, daily range): BP systolic 105–153; BP diastolic 59–97; PULSE 106–124; RESP 18–34; TEMP 36.4–37.1; O2SAT 92–98; BMI 44.9; BMI 42.6
--- NOTE | 2019-11-08 07:11 | EKG12_ITS ---
Test Reason : SOB Blood Pressure : / mmHG Vent. Rate : 117 BPM Atrial Rate : 117 BPM P-R Int : 168 ms QRS Dur : 062 ms QT Int : 302 ms P-R-T Axes : 062 -42 057 degrees QTc Int : 421 ms Sinus tachycardia Low voltage QRS Cannot rule out Anteroseptal infarct (cited on or before 02-JUL-2019) Abnormal ECG Confirmed by SALMA STAHL, JACOBY ([id number]), editor news ZURI CHRISTIE ([id number]) on 11/09/2019 8:05:29 AM Referred By: ARABELLA Confirmed By:JACOBY MARSH MD
--- NOTE | 2019-11-08 07:13 | CT_ITS ---
STUDY: CTA CHEST REASON FOR EXAM: Male, 39 years old. INCREASED SHORTNESS OF BREATH SINCE LAST NIGHT -- PT ON DIALYSIS RADIATION DOSAGE (If Supplied By Facility): CTDIvol = ( 62.53 ) mGy, DLP = ( 617.03 ) mGycm TECHNIQUE: The examination was performed with the intravenous administration of 100CC ISOVUE 370. Post-processing of the angiographic images was performed, with multiplanar reformation and 3D reconstruction. Individualized dose optimization techniques were used for this CT. COMPARISON: Comparison is made with prior examination dated September 17, 2018. FINDINGS: Small bilateral axillary lymph nodes. Multiple venous collaterals within the subcutaneous tissues of the anterior and posterior aspects of the thorax. Limited contrast enhancement of the pulmonary arteries bilaterally despite 2 attempts. No obvious pulmonary embolism is seen. Normal thoracic aorta and visualized great vessels. There is no demonstrated aortic dissection. Calcification of the mitral valve annulus. Normal mediastinum. Normal hilar regions. Normal visualized trachea and bronchi. The lungs are well expanded. There is evidence of multiple bilateral areas of airspace disease. This may represent either pulmonary edema or diffuse bilateral pulmonary infiltrations. Stable 1.4 cm x 1.7 cm pleural-based nodule in the posterior segment of the left lower lobe. Small right pleural effusion. Normal chest wall structures. Mild dextroscoliosis. Normal visualized upper abdomen. CT/CTA Chest W/WO Contrast IMPRESSION: Limited examination for the evaluation of pulmonary emboli. Correlation with nuclear medicine ventilation/perfusion lung scan is recommended. Diffuse bilateral airspace disease as described. This may represent either pulmonary edema or diffuse bilateral pulmonary infiltrates. Electronically Signed: Ed Vega, at 8:51 EST , Service support ,
--- NOTE | 2019-11-08 07:15 | ED.VIS.DYS ---
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 Negative for: Fever, Sore throat, Sweats Chest Pain: Intermittent, Sharp - left side, Tightness - when deep breathing now, left side. no radiation. no arm pain/discomfort. Narrative: Patient is a dialysis patient, he has not missed any sessions lately and is due today but did not go because he is too short of breath. Does not feel swollen all over. He has not been coughing lately or had upper respiratory infection symptoms. He has felt short of breath like this before with fluid overload, pneumonia, and pulmonary embolism. He is no longer on 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s even though he has a history of atrial fibrillation, he does not know why he was taken off of them. He does not recall any major life-threatening bleeding problems while on them. He denies any other heart problems other than atrial fibrillation. He denies asthma. He denies any leg pain or swelling lately. Prior similar symptoms: Yes Recent Illness/Hospitalization: No - Past Medical History (1) Anemia of chronic disorder Status: Chronic (2) Chronic kidney disease-mineral and bone disorder Status: Chronic (3) Dialysis patient Status: Chronic (4) ESRD (end stage renal disease) Status: Chronic Comment: Due to hypertension, On hemodialysis, TTS, followed by Dr. Goncalves (5) History of bacterial endocarditis Status: Resolved (6) 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 due to renal insufficiency Status: Chronic (7) Hypertension Status: Chronic (8) Mitral valve disease Status: Chronic (9) Mitral valve stenosis Status: Chronic (10) Morbidly obese Status: Chronic (11) PAF (paroxysmal atrial fibrillation) Status: Chronic (12) Sleep apnea Status: Chronic (13) Pulmonary embolism Status: Suspected (14) Atrial fibrillation and flutter Status: Inactive (15) HCAP (healthcare-associated pneumonia) Status: Inactive (16) History of blood clots Status: Inactive Comment: fistula developed a clot and had to be surgically removed (17) NSTEMI (non-ST elevated myocardial infarction) Status: Inactive Past Medical History - Allergies and Home Meds Allergies/Adverse Reactions: Allergies No Known Allergies Allergy (Verified 11/08/19 06:44) Primary Care Physician: Pawel Banda MD [Primary Care Provider] - Surgical History: herniorrhaphy, - - aVF x2, catheter placements, right upper extremity aneurysm removed. Smoking Status: Never smoker Drugs: None - Family History Paternal Family History: Family History (Last Reviewed 07/05/19 @ 03:05 by Lg Krishnan MD) Other Adopted Family History: Reports: - - Patient was adopted and does not know his maternal or paternal family history. Maternal Family History: Family History (Last Reviewed 07/05/19 @ 03:05 by Lg Krishnan MD) Other Adopted Family History: Reports: - - Patient was adopted and does not know his maternal or paternal family history. Review of Systems General: Reports: Malaise. Denies: Chills, Fever, Sweats Eyes: Denies: Visual changes - bilaterally, Diplopia ENT: Denies: Bilateral ear pain, Rhinorrhea, Sore throat Cardiovascular: Reports: Chest pain. Denies: Palpitations Respiratory: Reports: Dyspnea, Cough, Dyspnea on exertion, Orthopnea. Denies: Sputum Gastrointestinal: Reports: Vomiting - Once this morning, posttussive/gagged while dyspneic. Denies: Abdominal pain, Nausea, Diarrhea, Melena, Hematochezia Genitourinary: Denies: Dysuria - Patient is anuric Musculoskeletal: Denies: Neck pain, Back pain, Swelling, Extremity Pain Skin: Denies: Rash, Wounds Neurological: Reports: Headache - Bifrontal, intermittent since yesterday, currently present. Denies: Weakness, Numbness Physical Exam Vital Signs/Narrative: Vital Signs Temp Pulse Resp BP Pulse Ox 11/08/19 06:49 98.3 F 124 H 33 H 134/81 H 92 11/08/19 06:44 98.3 F 124 H 33 H 134/81 H 92 Inital Vital Signs reviewed: Yes General: Well nourished, Well developed, Obese, Acute Distress - Mild respiratory distress Head: Normocephalic, Atraumatic Eyes: Perrl, EOMI ENT: Moist mucous membranes, No rhinorrhea Neck: Supple, Nontender, No JVD - Limited evaluation due to obesity Cardiovascular: Regular rate, Regular rhythm, No murmurs, Tachycardia. Negative for: Irregular Respiratory: No distress, Chest nontender, Rales - Bibasilar, worse on left. Negative for: Wheezing Abdomen: Soft, Nontender, Nondistended, Normal bowel sounds Back: Nontender, Normal Inspection. Negative for: CVA tenderness Extremities: Nontender, No edema. Negative for: Calf Tenderness Skin: Normal color, No rash, No Trauma Neurological: Alert, Oriented x3, Cranial nerves II-XII grossly intact, Normal Strength, Normal Sensation Psychological: Normal affect, Normal Mood Diagnostic/Tx/Re-eval Impressions Chest CTA 11/08/19 07:13 IMPRESSION: Limited examination for the evaluation of pulmonary emboli. Correlation with nuclear medicine ventilation/perfusion lung scan is recommended. Diffuse bilateral airspace disease as described. This may represent either pulmonary edema or diffuse bilateral pulmonary infiltrates. Electronically Signed: Ed Vega, at 8:51 EST , Service support , 11/08/19 07:13 CTA Chest W/WO Contrast [CT] Stat Laboratory Results 11/08/19 11/08/19 07:35 07:35 WBC 7.8 RBC 3.45 L Hgb 10.3 L Hct 32.7 L MCV 94.8 H MCH 29.9 MCHC 31.5 L RDW Std Deviation 55.5 H RDW Coeff of Lance 16.4 H Plt Count 206 MPV 11.0 Immature Gran % (Auto) 0.400 Neut % (Auto) 74.9 H Lymph % (Auto) 8.5 L Iron % (Auto) 9.5 Eos % (Auto) 6.1 H Baso % (Auto) 0.6 Absolute Neuts (auto) 5.9 Absolute Lymphs (auto) 0.66 L Nucleated RBC % 0 Sodium 137 Potassium 5.4 H Chloride 100 Carbon Dioxide 25.0 Anion Gap 12 BUN 88 H Creatinine 14.00 H* Estim Creat Clear Calc 7.46 Est GFR (MDRD) Af Amer 5 L Est GFR (MDRD) Non-Af 4 L BUN/Creatinine Ratio 6.3 L Glucose 95 Calcium 8.9 Troponin I 0.629 H* - Rhythm Strip Rhythm Strip: Sinus Tach Rate: 110 Ectopy: None - EKG Initial EKG Interpretation: No Acute Injury Pattern, Sinus Tachycardia, - - Low voltage. [place] difficult to determine but similar to prior EKG. Poor R wave progression also similar. Prior: Unchanged Treatment - Dyspnea: Oxygen, Albuterol Repeat Evaluation: Improved - Medical Decision Making CT does not show any definite pulmonary emboli but is not able to rule them out. He does appear to have bilateral airspace disease that given the context, history, and lack of leukocytosis I think is probably less likely to be infectious. It is probably pulmonary edema. He does feel little better after an albuterol treatment but is still dyspneic. He is not hypoxic. His potassium is just slightly elevated at 5.4, there is no specific EKG changes of this. I think he needs dialysis for his symptoms and pulmonary edema, so I do not think treating his potassium medically is necessary. Awaiting renal to call back to arrange dialysis, and will discuss with hospitalist for admission. He had an echocardiogram less than 1 year ago that showed severe mitral stenosis and pulmonary hypertension but a good ejection fraction, diastolic function was not able to be definitively assessed at the time. With regards to his elevated troponin, he has had many measurements that have been nonspecifically elevated like this 1 in the past and is more likely related to his chronic renal disease. His EKG does not show a STEMI or evidence of acute injury, so I suspect these will be trended while he is an inpatient. ED Disposition - Plan for ED Patient: Disposition: Acute Care Hospital [facility] Diagnosis: Pulmonary edema, ESRD (end stage renal disease), Anemia of chronic disorder, Chest pain, unspecified Referrals: Pawel Banda MD [Primary Care Provider] -
--- NOTE | 2019-11-08 07:39 | ED.RN ---
OXYGEN INCREASED TO 3L VIA NC PER PATIENT REQUEST.
[2019-11-08 07:44] LABS: Absolute Lymphocyte Count 0.66 X10^3/uL (0.83-4.51); Absolute Neutrophil Count 5.9 X10^3/uL (2.0-7.7); Basophil# 0.05 X10^3/uL; Basophil% 0.6 % (0-1); Eosinophil# 0.48 X10^3/uL; Eosinophils% 6.1 % (0-5); Hematocrit 32.7 % (40-54); Hemoglobin 10.3 g/dL (13.0-16.5); Lymphocyte # 0.66 X10^3/ul (4.0); Lymphocyte % 8.5 % (19-41); Mean Corp Hgb Conc 31.5 g/dL (32-36); Mean Corpuscular Hgb 29.9 pg (27.0-32.0); Mean Corpuscular Volume 94.8 fL (80-94); Monocyte# 0.74 X10^3/uL; Monocyte% 9.5 % (0-10); NRBC Flagged by Analyzer 0 % (0-5); Neutrophil # 5.85 X10^3/uL (2.7-7.7); Neutrophil % 74.9 % (47-70); Platelet Count 206 K/mm3 (150-450); RBC Distribution Width CV 16.4 % (11.6-14.6); RBC Distribution Width SD 55.5 fl (35.1-43.9); Red Blood Count 3.45 M/mm3 (4.6-6.2); White Blood Count 7.8 K/mm3 (4.4-11.0)
[2019-11-08] MEDS: Albuterol 2.5 MG/3 ML VIAL.NEB. INHALATION (07:48)
[2019-11-08] MEDS: Acetaminophen 500 MG Tablet 1000 MG PO (08:02)
[2019-11-08 08:05] LABS: Anion Gap 12 (5-15); BUN 88 mg/dL (7-18); BUN/Creat Ratio 6.3 RATIO (10-20); Calcium,Total 8.9 mg/dL (8.5-10.1); Chloride 100 mmol/L (98-107); EST Glomerular Filtration Rate 4 mL/min (>60); Est Glom Filt Rate - Afr Amer 5 mL/min (>60); Estimated Creatinine Clearance 7.46 ml/min; Glucose 95 mg/dL (74-106); Potassium 5.4 mmol/L (3.5-5.1); Sodium Level 137 mmol/L (136-145)
--- NOTE | 2019-11-08 13:31 | PCM.HP.STD ---
History of Present Illness Date of Admission: 11/08/19 Chief Complaint: SOB and orthopnea The patient is a 39 year old M with a PMH as below who presents with shortness of breath, chest pain, and orthopnea that started yesterday. He states that everything started at the same time and his chest pain is more like a pressure like pain. He has had pain like this before but is never had a heart attack. He has had elevated troponins and a heart catheter previously. He is found to have A. fib as well as end-stage renal disease secondary to hypertensive nephropathy. 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 His blindness resolved however he has been on dialysis for the last 12 years. He states that he is also lost a significant amount of weight though he is still 296 pounds at 5 foot 10. He states he also has a history of a PE and had been on anticoagulation but that was stopped and he does remember by who or why. In the ER he had a creatinine of 14 and a troponin of 0.69, this creatinine seems about baseline for him and he states that he has been very compliant recently with dialysis however he was not able to make it today due to his significant shortness of breath. His troponin is also likely slightly elevated secondary to his creatinine, but will obtain serial enzymes. Past Medical History Past Medical History (Chronic Problems): Chronic Problems (Last Reviewed 07/05/19 @ 03:05 by Lg Krishnan MD) PAF (paroxysmal atrial fibrillation) (Chronic) Dialysis patient (Chronic) Left shoulder pain (Chronic) Anemia of chronic disorder (Chronic) Hypertension (Chronic) ESRD (end stage renal disease) (Chronic) Due to hypertension, On hemodialysis, TTS, followed by Dr. 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) Mitral valve disease (Chronic) Mitral valve stenosis (Chronic) Sleep apnea (Chronic) Hearing loss (Chronic) in both ears Medical History: Medical History (Last Reviewed 07/05/19 @ 03:05 by Lg Krishnan MD) Mitral valve stenosis (Chronic) I05.0 Sleep apnea (Chronic) G47.30 History of blood clots (Inactive) Z86.718 fistula developed a clot and had to be surgically removed Hearing loss (Chronic) H91.90 in both ears ESRD (end stage renal disease) N18.6 Afib I48.91 Anemia of chronic disease D63.8 HTN (hypertension) I10 Allergies No Known Allergies Allergy (Verified 11/08/19 06:44) Home Medications: Ambulatory Orders Medication Instructions Recorded cinacalcet 60 mg tablet 60 mg PO MOWEFR 10/10/17 Ferric Citrate [Auryxia] 630 mg PO TIDCM 02/05/19 Metoprolol Tartrate [Lopressor 25 mg PO BID #60 tab 07/07/19 (beta yossi)] Albuterol Inhaler [Ventolin Hfa] 2 puff INHALATION Q4H PRN PRN #1 10/13/19 inhaler Surgical History: Surgical History (Last Reviewed 07/05/19 @ 03:05 by Lg Krishnan MD) history of cather replacement Left Groin 04/21/19 Surgical History: herniorrhaphy, - - aVF x2, catheter placements, right upper extremity aneurysm removed. Psychiatric History: No pertinent psych hx Smoking Status: Never smoker Alcohol: None Drugs: None - *Family History Paternal Family History: Family History (Last Reviewed 07/05/19 @ 03:05 by Lg Krishnan MD) Other Adopted History Items: - - Patient was adopted and does not know his maternal or paternal family history. Maternal Family History: Family History (Last Reviewed 07/05/19 @ 03:05 by Lg Krishnan MD) Other Adopted History Items: - - Patient was adopted and does not know his maternal or paternal family history. Review of Systems Constitutional: Denies: Chills, Fever, Weight Change HEENT: Denies: Head Aches, Sinus Congestion, Sinus Drainage Cardiovascular: Reports: Chest Pressure, Orthopnea. Denies: Chest Pain, Palpitations Respiratory: Reports: Shortness of Breath. Denies: Cough, Shortness of breath at rest, Sputum production Gastrointestinal: Denies: Abdominal Pain, Nausea, Vomiting Genitourinary: Denies: Dysuria Musculoskeletal: Denies: Joint Pain, Joint Tenderness Skin: Denies: Rash, Wounds Neurological: Denies: Numbness, Tingling, Focal weakness Psychiatric: Denies: Anxiety, Depression Hematologic/ Lymphatic: Denies: Easy Bruising, Easy Bleeding VTE Information - Inpt Only VTE Present on Admission: No Patient Problems: Active and Suspected Problems (Last Reviewed 07/05/19 @ 03:05 by Lg Krishnan MD) Pulmonary edema (Acute) Chest pain, unspecified (Acute) - Physical Exam Vitals/I&O's: Vital Signs Temp Pulse Resp BP Pulse Ox 97.5 F L 112 H 20 H 143/97 H 96 11/08/19 10:15 11/08/19 10:36 11/08/19 10:15 11/08/19 10:15 11/08/19 10:15 Oxygen Flow Rate (L/min) 4 Oxygen Delivery Method Nasal Cannula Weight: 296 lb 15.402 oz Body Mass Index (BMI) 42.6 Intake and Output for Last 24 Hours 11/06/19 11/07/19 11/08/19 23:59 23:59 23:59 Intake Total 240 / 240 Balance 240 / 240 General: Alert, Oriented x3, Cooperative, No apparent distress HEENT: Atraumatic, PERRLA, EOMI, Normocephalic Oral: Dry Mucosa Neck: Supple, No JVD Lungs: Clear to auscultation, Normal air movement, No rhonchi, No wheeze, No rales, Diminished, Short of Breath, Tachypneic Cardiovascular: Regular Rhythm, Normal S1, Normal S2, No murmurs, Tachycardic Abdomen: Soft, Non Tender, Non-Distended, No Hepato-splenomegaly, Obese Extremities: Capillary Refill Less than 3 Seconds, Edema Skin: No rashes, No breakdown Neurological: Neuro grossly intact, Sensory exam intact to light touch and pain Psych/Mental Status: Normal Affect, Appropriate Laboratory Results 11/08/19 07:35: WBC 7.8, RBC 3.45 L, Hgb 10.3 L, Hct 32.7 L, MCV 94.8 H, MCH 29.9, MCHC 31.5 L, RDW Std Deviation 55.5 H, RDW Coeff of Lance 16.4 H, Plt Count 206, MPV 11.0, Immature Gran % (Auto) 0.400, Neut % (Auto) 74.9 H, Lymph % (Auto) 8.5 L, [place] % (Auto) 9.5, Eos % (Auto) 6.1 H, Baso % (Auto) 0.6, Absolute Neuts (auto) 5.9, Absolute Lymphs (auto) 0.66 L, Nucleated RBC % 0 11/08/19 07:35: Sodium 137, Potassium 5.4 H, Chloride 100, Carbon Dioxide 25.0, Anion Gap 12, BUN 88 H, Creatinine 14.00 H*, Estim Creat Clear Calc 7.46, Est GFR (MDRD) Af Amer 5 L, Est GFR (MDRD) Non-Af 4 L, BUN/Creatinine Ratio 6.3 L, Glucose 95, Calcium 8.9, Troponin I 0.629 H* Current Medications Albuterol Sulfate (Ventolin Hfa (Sp)) 2 puff INHALATION Q4H PRN PRN PRN Reason: WHEEZING Cinacalcet (Sensipar) 60 mg PO MOWEFR MACY Heparin Sodium (Porcine) (Heparin Na) 5,000 unit SC Q8 MACY Sodium Chloride () 250 mls @ 15 mls/hr IV .[id number] PRN PRN Reason: Saline Flush Sodium Chloride () 250 mls @ 15 mls/hr IV .[id number] PRN PRN Reason: Additional IVPB Infusion Melatonin (Melatonin) 3 mg PO QHS PRN PRN PRN Reason: INSOMNIA Metoprolol Tartrate (Lopressor (Beta Yossi)) 25 mg PO BID MACY Ondansetron HCl (Zofran) 4 mg IV Q8H PRN PRN PRN Reason: NAUSEA/VOMITING Sodium Chloride () 10 - 40 ml IV UD PRN PRN Reason: SALINE FLUSH Assessment/Plan All Active Problems (Last Reviewed 07/05/19 @ 03:05 by Lg Krishnan MD) Sepsis (Acute) Community acquired pneumonia (Acute) Bacteremia (Acute) Pulmonary edema (Acute) Chest pain, unspecified (Acute) History of bacterial endocarditis (Resolved) 1. Pulmonary hypertension/ESRD with dialysis MWF/acute hypoxic respiratory failure secondary to acute on chronic diastolic CHF/A. fib/HTN/YEIMY -Likely fluid overload from worsening pulmonary hypertension -Unable to attend dialysis today -Fortunately he is an uric and therefore diuretics are unhelpful -He does have this moderate to severe mitral valve stenosis therefore will consult cardiology to help assess need for anticoagulation given his history of PE and his current A. fib, he reports that he had a cardioversion is unsure how long ago. He is also not sure how long he has been off of anticoagulation and who did it. -Consult to nephrology for dialysis -Continue with nasal cannula -Continue with his home blood pressure medications and make adjustments as necessary DVT: Heparin Code Visit Inpatient E&M: 87442 Init Hosp L2
[2019-11-08] MEDS: Heparin Injection (Vial) 5,000 UNIT/ML VIAL 5000 UNIT SC ×2 (14:17→21:54)
--- NOTE | 2019-11-08 15:31 | PCM.CONS.GEN ---
Reason for Consult Date of Consultation: 11/08/19 Reason for Consultation: esrd History of Present Illness: The patient is a 39 year old M with a PMH as below who presents with shortness of breath, chest pain, and orthopnea associated with cough with light sputum production. He goes to dialysis on Friday last dialysis on Friday. His dry weight seems to be 128 kg as per paperwork from the dialysis unit. He dialyzes 4 hours and 45 minutes. He denies fever chills or discharge from the AV graft in the right thigh. Patient denies lower extremity edema nausea vomiting or abdominal pain. Past Medical History Past Medical History (Chronic Problems): Chronic Problems (Last Reviewed 07/05/19 @ 03:05 by Lg Krishnan MD) PAF (paroxysmal atrial fibrillation) (Chronic) Dialysis patient (Chronic) Left shoulder pain (Chronic) Anemia of chronic disorder (Chronic) Hypertension (Chronic) ESRD (end stage renal disease) (Chronic) Due to hypertension, On hemodialysis, TTS, followed by Dr. 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) Mitral valve disease (Chronic) Mitral valve stenosis (Chronic) Sleep apnea (Chronic) Hearing loss (Chronic) in both ears Medical History: Medical History (Last Reviewed 07/05/19 @ 03:05 by Lg Krishnan MD) Mitral valve stenosis (Chronic) I05.0 Sleep apnea (Chronic) G47.30 History of blood clots (Inactive) Z86.718 fistula developed a clot and had to be surgically removed Hearing loss (Chronic) H91.90 in both ears ESRD (end stage renal disease) N18.6 Afib I48.91 Anemia of chronic disease D63.8 HTN (hypertension) I10 Allergies No Known Allergies Allergy (Verified 11/08/19 06:44) Home Medications: Ambulatory Orders Medication Instructions Recorded cinacalcet 60 mg tablet 60 mg PO MOWEFR 10/10/17 Ferric Citrate [Auryxia] 630 mg PO TIDCM 02/05/19 Metoprolol Tartrate [Lopressor 25 mg PO BID #60 tab 07/07/19 (beta yossi)] Albuterol Inhaler [Ventolin Hfa] 2 puff INHALATION Q4H PRN PRN #1 10/13/19 inhaler Surgical History: Surgical History (Last Reviewed 07/05/19 @ 03:05 by Lg Krishnan MD) history of cather replacement Left Groin 04/21/19 Surgical History: herniorrhaphy, - - aVF x2, catheter placements, right upper extremity aneurysm removed. Psychiatric History: No pertinent psych hx Smoking Status: Never smoker Alcohol: None Drugs: None - *Family History Paternal Family History: Family History (Last Reviewed 07/05/19 @ 03:05 by Lg Krishnan MD) Other Adopted History Items: - - Patient was adopted and does not know his maternal or paternal family history. Maternal Family History: Family History (Last Reviewed 07/05/19 @ 03:05 by Lg Krishnan MD) Other Adopted History Items: - - Patient was adopted and does not know his maternal or paternal family history. Patient Problems: Active and Suspected Problems (Last Reviewed 07/05/19 @ 03:05 by Lg Krishnan MD) Pulmonary edema (Acute) Chest pain, unspecified (Acute) - Physical Exam Vitals/I&O's: Vital Signs Temp Pulse Resp BP Pulse Ox 97.5 F L 115 H 20 H 143/97 H 96 11/08/19 10:15 11/08/19 14:59 11/08/19 10:15 11/08/19 10:15 11/08/19 10:15 Oxygen Flow Rate (L/min) 4 Oxygen Delivery Method Nasal Cannula Weight: 134.7 kg Body Mass Index (BMI) 42.6 Intake and Output for Last 24 Hours 11/06/19 11/07/19 11/08/19 23:59 23:59 23:59 Intake Total 240 / 240 Balance 240 / 240 General: Alert, Oriented x3 HEENT: Atraumatic, Normocephalic Neck: Supple Lungs: Clear to auscultation, Normal air movement Cardiovascular: Regular rate, Normal S1, Normal S2 Abdomen: Bowel Sounds Present, Soft, Non Tender Extremities: No clubbing Skin: No rashes Neurological: Cranial nerves II-XII grossly intact Psych/Mental Status: Normal Affect Laboratory Results 11/08/19 07:35: WBC 7.8, RBC 3.45 L, Hgb 10.3 L, Hct 32.7 L, MCV 94.8 H, MCH 29.9, MCHC 31.5 L, RDW Std Deviation 55.5 H, RDW Coeff of Lance 16.4 H, Plt Count 206, MPV 11.0, Immature Gran % (Auto) 0.400, Neut % (Auto) 74.9 H, Lymph % (Auto) 8.5 L, [place] % (Auto) 9.5, Eos % (Auto) 6.1 H, Baso % (Auto) 0.6, Absolute Neuts (auto) 5.9, Absolute Lymphs (auto) 0.66 L, Nucleated RBC % 0 11/08/19 07:35: Sodium 137, Potassium 5.4 H, Chloride 100, Carbon Dioxide 25.0, Anion Gap 12, BUN 88 H, Creatinine 14.00 H*, Estim Creat Clear Calc 7.46, Est GFR (MDRD) Af Amer 5 L, Est GFR (MDRD) Non-Af 4 L, BUN/Creatinine Ratio 6.3 L, Glucose 95, Calcium 8.9, Troponin I 0.629 H* Current Medications Acetaminophen (Tylenol) 500 mg PO Q4H PRN PRN PRN Reason: HEADACHE Albuterol Sulfate (Ventolin Aerosols) 2.5 mg INHALATION Q4H PRN PRN PRN Reason: SOB/WHEEZE Cinacalcet (Sensipar) 60 mg PO MoWeFr@1000 MACY Heparin Sodium (Porcine) (Heparin Na) 5,000 unit SC Q8 MACY Last Admin: 11/08/19 14:17 Dose: 5,000 unit Documented by: Sodium Chloride () 250 mls @ 15 mls/hr IV .[id number] PRN PRN Reason: Saline Flush Sodium Chloride () 250 mls @ 15 mls/hr IV .[id number] PRN PRN Reason: Additional IVPB Infusion Melatonin (Melatonin) 3 mg PO QHS PRN PRN PRN Reason: INSOMNIA Metoprolol Tartrate (Lopressor (Beta Yossi)) 25 mg PO BID [facility] Ondansetron HCl (Zofran) 4 mg IV Q8H PRN PRN PRN Reason: NAUSEA/VOMITING Sodium Chloride () 10 - 40 ml IV UD PRN PRN Reason: SALINE FLUSH Assessment/Plan All Active Problems (Last Reviewed 07/05/19 @ 03:05 by Lg Krishnan MD) Sepsis (Acute) Community acquired pneumonia (Acute) Bacteremia (Acute) Pulmonary edema (Acute) Chest pain, unspecified (Acute) History of bacterial endocarditis (Resolved) ESRD Anemia CKD MBD Hyperkalemia HTN CP bp ok continue current meds HD today try 5 liters UF today ANABELLA with HD continue sensipar monitor ca phos 2 K bath The above assessment and plan was discussed at length with the patient voiced understanding and agrees to proceed with the plan as outlined above. He was given the opportunity to ask questions and stated that those were answered to his satisfaction. Thank you very much for allowing me to participate in the care of this patient. Please do not hesitate to call if you have any questions or concerns.
[2019-11-08] MEDS: Heparin 10,000 UNITS/10 ML Vial 14000 UNITS IV (16:02)
--- NOTE | 2019-11-08 16:05 | CON.PCM_ITS ---
Reason for Consult Date of Consultation: 11/08/19 Reason for Consultation: Shortness of breath History of Present Illness: 39-year-old man with a history of end-stage renal disease on chronic hemodialysis, no significant coronary artery disease following cardiac catheter ization August 2018, hypertension, mild mitral valve disease, and paroxysmal atrial fibrillation. He presented to the hospital in November of 2018 with palpitations he was noted to be in atrial flutter with rapid ventricular response rate. He had been on anticoagulation. He presented to the hospital this time with shortness of breath and orthopnea and a cough. His EKG in the emergency room demonstrated sinus tachycardia with a rate of 117 bpm. His previous echocardiogram demonstrated preserved ejection fraction of 68% with a mitral annular calcification and moderately severe mitral stenosis and mild mitral regurgitation. He has had no dizziness or diaphoresis near syncope or syncope. His physical exam today demonstrates clear lung page regular rate and rhythm no pedal edema his blood pressure is under good control. Cardiology was asked to assist in management of the patient. Past Medical History Allergies/Adverse Reactions: Allergies No Known Allergies Allergy (Verified 11/08/19 06:44) Home Medications: Ambulatory Orders Medication Instructions Recorded cinacalcet 60 mg tablet 60 mg PO MOWEFR 10/10/17 Ferric Citrate [Auryxia] 630 mg PO TIDCM 02/05/19 Metoprolol Tartrate [Lopressor 25 mg PO BID #60 tab 07/07/19 (beta zbigniew)] Albuterol Inhaler [Ventolin Hfa] 2 puff INHALATION Q4H PRN PRN #1 10/13/19 inhaler Past Medical History (Chronic Problems): Chronic Problems (Last Reviewed 07/05/19 @ 03:05 by Lg Krishnan MD) PAF (paroxysmal atrial fibrillation) (Chronic) Dialysis patient (Chronic) Left shoulder pain (Chronic) Anemia of chronic disorder (Chronic) Hypertension (Chronic) ESRD (end stage renal disease) (Chronic) Due to hypertension, On hemodialysis, TTS, followed by Dr. 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 Psychiatric History: No pertinent psych hx - *Family History Paternal Family History: Family History (Last Reviewed 07/05/19 @ 03:05 by Lg Krishnan MD) Other Adopted History Items: - - Patient was adopted and does not know his maternal or paternal family history. Maternal Family History: Family History (Last Reviewed 07/05/19 @ 03:05 by Lg Krishnan MD) Other Adopted History Items: - - Patient was adopted and does not know his maternal or paternal family history. Smoking Status: Never smoker Alcohol: None Drugs: None Review of Systems - Review of Systems General: Denies: Fever, Night Sweats, Fatigue HEENT: Denies: Vision Change Cardiovascular: Reports: Chest Discomfort, Shortness of Breath, Shortness of Breath at Rest. Denies: Orthopnea, PND, Peripheral Edema, Palpitations, Lightheadedness, Dizziness, Near Syncope, Syncope Respiratory: Denies: Cough, Sputum Production, Hemoptysis Gastrointestinal: Denies: Hematemesis, Hematochezia, Melena Genitourinary: Denies: Dysuria, Hematuria Skin: Denies: Rash Neurological: Denies: Dizziness Psychiatric: Denies: Anxiety Endocrine: Denies: Heat Intolerance Objective: Vital Signs Temp Pulse Resp BP Pulse Ox 97.5 F L 115 H 20 H 143/97 H 96 11/08/19 10:15 11/08/19 14:59 11/08/19 10:15 11/08/19 10:15 11/08/19 10:15 Oxygen Flow Rate (L/min) 4 Oxygen Delivery Method Nasal Cannula Weight: 296 lb 15.402 oz Body Mass Index (BMI) 42.6 Intake and Output for Last 24 Hours 11/06/19 11/07/19 11/08/19 23:59 23:59 23:59 Intake Total 240 / 240 Balance 240 / 240 General: Awake, Alert, Oriented x 3 HEENT: PERRL, EOMI, Sclera Non Icteric Neck: Supple, Good ROM, No Lymph Node Enlargement Lungs: Clear to auscultation Cardiovascular: Regular Rhythm, Normal S1, Normal S2, No Murmurs, No Rubs, No Gallops Vascular: No Carotid Bruits, Normal Femoral Pulses, Normal Radial Pulses, Normal Dorsalis Pedal Pulse, Normal Posterior Tibial Pulses Abdomen: Bowel Sounds Present, Soft, Non Tender, No HSM, No Organomegaly Extremities: No Cyanosis, No Clubbing, No edema Musculoskeletal: No Erythema Skin: No Rashes Lymphatic: No Lymph Node Enlargement Neurological: No Focal Motor or Sensory Deficit Psych/Mental Status: Appropriate 11/08/19 07:35: WBC 7.8, RBC 3.45 L, Hgb 10.3 L, Hct 32.7 L, MCV 94.8 H, MCH 29.9, MCHC 31.5 L, Plt Count 206, MPV 11.0, Immature Gran % (Auto) 0.400, Neut % (Auto) 74.9 H, Lymph % (Auto) 8.5 L, [place] % (Auto) 9.5, Eos % (Auto) 6.1 H, Baso % (Auto) 0.6, Absolute Neuts (auto) 5.9, Nucleated RBC % 0 11/08/19 07:35: Sodium 137, Potassium 5.4 H, Chloride 100, Carbon Dioxide 25.0, Anion Gap 12, BUN 88 H, Creatinine 14.00 H*, Est GFR (MDRD) Af Amer 5 L, Est GFR (MDRD) Non-Af 4 L, BUN/Creatinine Ratio 6.3 L, Glucose 95, Calcium 8.9, Troponin I 0.629 H* Rhythm: EKG:Sinus tachycardia ECHO: Stress Test: Cardiac Cath: PCI: CT Surgery: Holter monitor: EPS: PPM: CXR: Chest CT Scan: Assessment/Plan 1. Shortness of breath. * He does have evidence of shortness of breath. He has underlying renal failure as well and is on hemodialysis. He is scheduled to undergo hemodialysis later today. He also does have mitral stenosis and my recommendation would be to repeat his echocardiogram to assess his mitral valve gradient. He does not appear to be the best candidate for mitral valve surgery however this would need to be reevaluated. * Will assess his progress after dialysis * 2. Hypertension * His blood pressure is under good control at this time and I would not recommend that we make any other changes. * 3. Paroxysmal atrial fibrillation * He appears to be maintaining sinus rhythm at this particular time. I would not recommend that we make any changes regarding the above. * 4. Abnormal cardiac enzymes. She does have mildly abnormal cardiac enzymes. You do remember that he has a rather hypertrophied ventricle. His last catheterization less than a year and a half ago demonstrates no obstructive coronary disease. This was reviewed at this time. Despite his mildly abnormal cardiac enzymes I do not think that he needs a repeat coronary evaluation. Thank you for allowing me to participate in the care of your patient. Please don't hesitate to call if any issues arise
--- NOTE | 2019-11-08 16:59 | CHAPLAIN ---
Type of Pastoral Visit _x__ Initial Visit ___ Follow-up Visit ___ On-call Visit ___ General Patient Visit ___ Spiritual Assessment ___ Family Conference ___ Bereavement ___ Rapid Response ___ Code Blue ___ Other (describe below) Pastoral Care Referral From _x__ Patient ___ Family ___ Nurse ___ Physician ___ Marble Cutter Operator ___ Auto Body Estimator ___ Other (describe below) Sacrament/Intervention _x__ Active listening ___ Anointing ___ Spiritism ___ Bereavement ___ Communion ___ Layla exploration ___ _x__ Life review _x__ Prayer ___ Reconciliation ___ Sacrament of Sick _x__ Supportive presence ___ Wedding ___ Other (describe below) Pastoral Comments
--- NOTE | 2019-11-08 21:01 | DIALYSIS ---
HD x4h45m completed at 2030, tolerated fair, UF 2600mL, unable to remove more fluid due to hypotension, CritLine ended profile A, labs drawn pre-tx from AVG, 14,000unit Heparin bolus given at start of tx, accessed right thigh AVG easily using 15G needles, needles pulled post tx and stasis achieved without issue, report to Lorrie RN
[2019-11-08] MEDS: Metoprolol Tartrate 25 MG Tablet PO (21:53)
[2019-11-08] MEDS: Ibuprofen 600 MG Tablet PO (21:54)
[2019-11-09] VITALS (9 sets, daily range): BP systolic 93–138; BP diastolic 51–72; PULSE 84–102; RESP 14–21; TEMP 36.6–37; O2SAT 90–100
[2019-11-09] MEDS: Heparin Injection (Vial) 5,000 UNIT/ML VIAL 5000 UNIT SC (06:40)
[2019-11-09 06:50] LABS: Absolute Lymphocyte Count 0.58 X10^3/uL (0.83-4.51); Absolute Neutrophil Count 3.8 X10^3/uL (2.0-7.7); Basophil# 0.04 X10^3/uL; Basophil% 0.7 % (0-1); Eosinophil# 0.42 X10^3/uL; Eosinophils% 7.4 % (0-5); Hematocrit 30.4 % (40-54); Hemoglobin 9.5 g/dL (13.0-16.5); Lymphocyte # 0.58 X10^3/ul (4.0); Lymphocyte % 10.3 % (19-41); Mean Corp Hgb Conc 31.3 g/dL (32-36); Mean Corpuscular Hgb 29.4 pg (27.0-32.0); Mean Corpuscular Volume 94.1 fL (80-94); Mean Platelet Vol. 10.4 fl (6.2-12.0); Monocyte# 0.81 X10^3/uL; Monocyte% 14.4 % (0-10); NRBC Flagged by Analyzer 0 % (0-5); Neutrophil # 3.76 X10^3/uL (2.7-7.7); Neutrophil % 66.7 % (47-70); POSITIVE DIFFERENTIAL YES; Platelet Count 176 K/mm3 (150-450); RBC Distribution Width CV 16.2 % (11.6-14.6); RBC Distribution Width SD 55.9 fl (35.1-43.9); Red Blood Count 3.23 M/mm3 (4.6-6.2); White Blood Count 5.6 K/mm3 (4.4-11.0)
[2019-11-09 06:55] LABS: Differential Indicated SCAN CRITERIA MET
[2019-11-09 07:37] LABS: ALB/GLOB Ratio 0.7 RATIO (0.9-2.4); AST(SGOT) 14 U/L (15-37); Alanine Aminotransfer ALT/SGPT 14 U/L (16-61); Alkaline Phosphatase 60 U/L (45-117); Anion Gap 11 (5-15); BUN 46 mg/dL (7-18); BUN/Creat Ratio 5.3 RATIO (10-20); Chloride 94 mmol/L (98-107); Creatinine, Serum 8.72 mg/dL (0.70-1.30); EST Glomerular Filtration Rate 7 mL/min (>60); Est Glom Filt Rate - Afr Amer 9 mL/min (>60); Estimated Creatinine Clearance 11.98 ml/min; Globulin 4.3 g/dL (2.2-4.2); Glucose 81 mg/dL (74-106); Potassium 4.3 mmol/L (3.5-5.1); Protein, Total 7.3 g/dL (6.4-8.2); Sodium Level 133 mmol/L (136-145)
--- NOTE | 2019-11-09 07:37 | ECHOCS_ITS ---
Reason For Study: DYSPNEA/SOB Procedure This was a 2D Doppler, Color Flow transthoracic echocardiogram. Due to body habitus. Exam performed portable in patient room. Left Ventricle Normal LV size. Moderate concentric left ventricular hypertrophy. Left ventricular systolic function is normal. The estimated ejection fraction is 70 %. No regional wall motion abnormalities noted. Right Ventricle Normal RV size. Normal systolic function. Atria The left atrium is mildly enlarged. Normal right atrium. Mitral Valve Moderate focal mitral valve calcification, bileaflet. There is moderate mitral annular calcification. Peak transmitral valve gradient 26 mmHg. Mean transmitral valve gradient 15 mmHg. Mitral valve area is 1.8 cm^2. Tricuspid Valve Normal tricuspid valve. Mild (1+) tricuspid valve insufficiency. Pulmonary artery systolic pressure is 36 mmHg. Aortic Valve Trisinus/trileaflet aortic valve. Mild focal aortic valve calcification. Pulmonic Valve The pulmonic valve is not well visualized. Great Vessels Normal aortic root. The pulmonary artery is normal size. Normal inferior vena cava. Pericardium/Pleural No pericardial effusion. Medication Diluted definity 1.0ml given slow IV push to enhance endocardial definition. MMode/2D Measurements & Calculations LVIDd: 3.8 cm IVSd: 1.5 cm LAV(MOD-bp): 74.0 ml LVIDs: 2.4 cm LVPWd: 1.4 cm FS: 38.1 % LAV(MOD-bp) Indexed: 30.1 ml/m2 LAV(MOD-sp2): 76.0 ml LAV(MOD-sp4): 70.8 ml LA dimension(2D): 4.8 cm LA A4 area: 22.2 cm2 Doppler Measurements & Calculations Lat Peak E' Gaurang: 8.3 cm/sec Med Peak E' Gaurang: 8.1 cm/sec MV V2 max: 258.2 cm/sec MV max P.7 mmHg MV V2 mean: 184.5 cm/sec MV mean P.9 mmHg MV V2 VTI: 73.8 cm MV P1/2t max gaurang: 243.1 cm/sec Ao V2 max: 165.4 cm/sec LV V1 max: 115.9 cm/sec MV P1/2t: 121.9 msec Ao max P.9 mmHg LV V1 max P.4 mmHg MV dec slope: 583.9 cm/sec2 Ao V2 mean: 111.9 cm/sec Ao mean P.6 mmHg MVA(P1/2t): 1.8 cm2 Ao V2 VTI: 29.7 cm PA V2 max: 87.5 cm/sec TR max gaurang: 282.1 cm/sec TR max P.8 mmHg Interpretation Summary Normal LV size. Moderate concentric left ventricular hypertrophy. Left ventricular systolic function is normal. The estimated ejection fraction is 70 %. Mean transmitral valve gradient 15 mmHg. Contrast injection was performed. Ordering Physician: Nnamdi Moreno Referring Physician: Pawel Banda Performed By: Caroline Valero, RDCS, RVT
--- NOTE | 2019-11-09 10:51 | CASEMGMT ---
RACHEL PARNELL assessment: Face to Face with patient for initial transition planning/care coordination assessment. RACHEL PARNELL introduced self and role at [facility], pt voices understanding and consents to assessment at this time. Pt is sitting up in bed in no distress at this time. Pt is A/Ox4 at this time and answers all questions appropriately at this time. Care providers, pharmacy, and demographics verified at this time. Presentation: Pt c/o increased SOB starting yesterday at 1600 Admitting dx: SOB w/ volume overload PCP: [facility] Specialists: Nora, nephro; Josh, cardio [facility]: [facility] Prescription Benefit: Yes Living Will/HPOA: Pt states does not have LW/HPOA currently but states would like to complete at this time. Dewayne C[place] aware at this time, voices understanding. LNOK: London Weston, ; Yara Weston, mother Living Arrangements: Pt states lives with in 2 story apartment and states no concerns at home at this time. Pt states is independent with ADL's. Transportation: Pt states drives self and states no transportation concerns at this time. DME/HHC: Pt states has a cpap at home through [facility] and states no need for any further DME at this time. Pt states no hx of HHC or SNF in the past. Pt has dialysis MWF at [facility] with 0610 chair time. Pt states no concerns with going home at time of discharge. Pt states is disabled. Pt states does not smoke or drink ETOH. Pt states no further concerns/needs at this time. CM to follow for home oxygen and for any further discharge planning/needs. Advised pt to ask for CM if any further questions/concerns/needs arise, voices understanding. Pt Goal: Home Plan[place] RACHEL PARNELL
--- NOTE | 2019-11-09 10:55 | PN.CARD_ITS ---
Subjectve: Patient seen and evaluated. Appears to be breathing better today Objective: Vital Signs Temp Pulse Resp BP Pulse Ox 98.5 F 91 14 93/51 L 97 11/09/19 04:21 11/09/19 06:59 11/09/19 04:21 11/09/19 04:21 11/09/19 04:21 Oxygen Flow Rate (L/min) 4 Oxygen Delivery Method Nasal Cannula Weight: 294 lb 1.546 oz Body Mass Index (BMI) 42.6 Intake and Output for Last 24 Hours 11/07/19 11/08/19 11/09/19 23:59 23:59 23:59 Intake Total 560 / 560 Output Total 2600 / 2600 Balance -2039 / General: Awake, Alert, Oriented x 3 HEENT: PERRL, EOMI, Sclera Non Icteric Neck: Supple, Good ROM, No Lymph Node Enlargement Lungs: Clear to auscultation Cardiovascular: Regular Rhythm, Normal S1, Normal S2, No Murmurs, No Rubs, No Gallops Vascular: No Carotid Bruits, Normal Femoral Pulses, Normal Radial Pulses, Normal Dorsalis Pedal Pulse, Normal Posterior Tibial Pulses Abdomen: Bowel Sounds Present, Soft, Non Tender, No HSM, No Organomegaly Extremities: No Cyanosis, No Clubbing, No edema Musculoskeletal: No Erythema Skin: No Rashes Neurological: No Focal Motor or Sensory Deficit 11/08/19 15:40: Troponin I 0.414 H 11/08/19 18:20: Troponin I 0.416 H 11/09/19 06:40: WBC 5.6, RBC 3.23 L, Hgb 9.5 L, Hct 30.4 L, MCV 94.1 H, MCH 29.4, MCHC 31.3 L, Plt Count 176, MPV 10.4, Immature Gran % (Auto) 0.500, Neut % (Auto) 66.7, Lymph % (Auto) 10.3 L, [place] % (Auto) 14.4 H, Eos % (Auto) 7.4 H, Baso % (Auto) 0.7, Absolute Neuts (auto) 3.8, Nucleated RBC % 0 11/09/19 06:40: Sodium 133 L, Potassium 4.3, Chloride 94 L, Carbon Dioxide 28.0, Anion Gap 11, BUN 46 H, Creatinine 8.72 H*, Est GFR (MDRD) Af Amer 9 L, Est GFR (MDRD) Non-Af 7 L, BUN/Creatinine Ratio 5.3 L, Glucose 81, Calcium 8.0 L, Total Bilirubin 0.70 Rhythm: EKG: ECHO: Stress Test: Cardiac Cath: PCI: CT Surgery: Holter monitor: EPS: PPM: CXR: Chest CT Scan: Medical Necessity - Tobacco Use Smoking Status: Never smoker Assessment/Plan 1. Shortness of breath. * He does have evidence of shortness of breath. He has underlying renal failure as well and is on hemodialysis. * He underwent dialysis and feels much better today. His echocardiogram performed today demonstrated preserved ejection fraction of 70%, moderate mitral stenosis with a mean gradient of 17 mmHg. * He will continue with his dialysis 2. Hypertension * His blood pressure is under good control at this time and I would not recommend that we make any other changes. * 3. Paroxysmal atrial fibrillation * He appears to be maintaining sinus rhythm at this particular time. I would not recommend that we make any changes regarding the above. * I think he needs to be put back on Eliquis 2.5 mg twice a day. Ideally he should be on Coumadin due to the fact that he clearly has valvular heart disease but I am not sure how compliant he will be. * 4. Abnormal cardiac enzymes. She does have mildly abnormal cardiac enzymes. You do remember that he has a rather hypertrophied ventricle. His last catheterization less than a year and a half ago demonstrates no obstructive coronary disease. This was reviewed at this time. Despite his mildly abnormal cardiac enzymes I do not think that he needs a repeat coronary evaluation. Thank you for allowing me to participate in the care of your patient. Please don't hesitate to call if any issues arise
[2019-11-09] MEDS: Metoprolol Tartrate 25 MG Tablet PO (11:39)
--- NOTE | 2019-11-09 12:12 | DCINST_ITS ---
- Discharge Diagnoses Current Active Problems: Current Active and Chronic Problems (Last Reviewed 07/05/19 @ 03:05 by Lg Krishnan MD) Pulmonary edema (Acute) Chest pain, unspecified (Acute) Anemia of chronic disorder (Chronic) You will use the following diet at home:: Cardiac, Fluid restricted (specify 2000 mls, 1500 mls) - 1500 Your food should be the consistency of: Regular Your liquids should be the consistency of: Regular/Thin Discharge Activity: Return to Normal Activity Call your doctor if you observe: Fever of 101 or Higher, Shortness of breath, Dizziness, Fainting spells, Swelling in the ankles, Chest pain, Increased palpitations (irregular heartbeat) Allergies/Adverse Reactions: Allergies No Known Allergies Allergy (Verified 11/08/19 06:44) Medications to take at Discharge cinacalcet 60 mg tablet 60 mg PO MOWEFR 10/10/17 Ferric Citrate [Auryxia] 630 mg PO TIDCM 02/05/19 Metoprolol Tartrate [Lopressor (beta zbigniew)] 25 mg PO BID #60 tab 07/07/19 Albuterol Inhaler [Ventolin Hfa] 2 puff INHALATION Q4H PRN PRN #1 inhaler 10/13/19 Apixaban [Eliquis] 2.5 mg PO BID #60 tab 11/09/19 The following prescriptions were given: Apixaban [Eliquis] 2.5 mg PO BID #60 tab Transmission Status: Pending to [facility] Primary Care Physician: Pawel Banda MD [Primary Care Provider] - Please follow up with your Primary Care Physician in: 3-5 days Test Results: Test results from this visit will be discussed in further detail at your follow- up appointment, if applicable. Please Follow Up With: Pawel Banda MD Please Follow Up With: Nnamdi Moreno MD When: 2-4 weeks
--- NOTE | 2019-11-09 12:14 | CASEMGMT ---
SW completed Healthcare Power of Endoscopy Tech and Healthcare Living Will with patient. Copies were made and given to patient along with the originals. A copy of each was also placed in patient's chart. Mireya ERNANDEZ
--- NOTE | 2019-11-09 12:36 | DS.PCM_ITS ---
Discharge Date and Diagnosis - Problem List Patient Problems: Active and Suspected Problems (Last Reviewed 07/05/19 @ 03:05 by Lg Krishnan MD) Pulmonary edema (Acute) Chest pain, unspecified (Acute) Date of Admission: 11/08/19 Date of Discharge: 11/09/19 - Primary Discharge Diagnosis Active and Suspected Problems (Last Reviewed 07/05/19 @ 03:05 by Lg Krishnan MD) Pulmonary edema (Acute) Chest pain, unspecified (Acute) - Secondary Discharge Diagnosis Chronic Problems (Last Reviewed 07/05/19 @ 03:05 by Lg Krishnan MD) PAF (paroxysmal atrial fibrillation) (Chronic) Dialysis patient (Chronic) Left shoulder pain (Chronic) Anemia of chronic disorder (Chronic) Hypertension (Chronic) ESRD (end stage renal disease) (Chronic) Due to hypertension, On hemodialysis, TTS, followed by Dr. 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) Mitral valve disease (Chronic) Mitral valve stenosis (Chronic) Sleep apnea (Chronic) Hearing loss (Chronic) in both ears Hospital Course and Treatment Imaging Results: CTA Chest: IMPRESSION: Limited examination for the evaluation of pulmonary emboli. Correlation with nuclear medicine ventilation/perfusion lung scan is recommended. Diffuse bilateral airspace disease as described. This may represent either pulmonary edema or diffuse bilateral pulmonary infiltrates. Echo: Interpretation Summary Normal LV size. Moderate concentric left ventricular hypertrophy. Left ventricular systolic function is normal. The estimated ejection fraction is 70 %. Mean transmitral valve gradient 15 mmHg. Contrast injection was performed. Consults: Cardiology Nephrology Operations: None Procedures: 2-D Echocardiogram, Dialysis Summary of Care Provided: Per HPI: The patient is a 39 year old M with a PMH as below who presents with shortness of breath, chest pain, and orthopnea that started yesterday. He states that everything started at the same time and his chest pain is more like a pressure like pain. He has had pain like this before but is never had a heart attack. He has had elevated troponins and a heart catheter previously. He is found to have A. fib as well as end-stage renal disease secondary to hypertensive nephropathy. 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 His blindness resolved however he has been on dialysis for the last 12 years. He states that he is also lost a significant amount of weight though he is still 296 pounds at 5 foot 10. He states he also has a history of a PE and had been on anticoagulation but that was stopped and he does remember by who or why. In the ER he had a creatinine of 14 and a troponin of 0.69, this creatinine seems about baseline for him and he states that he has been very compliant recently with dialysis however he was not able to make it today due to his significant shortness of breath. His troponin is also likely slightly elevated secondary to his creatinine, but will obtain serial enzymes. Hospital Course: 1. Shortness of breath secondary to pulmonary hypertension and acute on chronic diastolic CHF with acute hypoxic respiratory failure/A. fib/HTN/YEIMY/ESRD- 39-year-old male who has a history of hypertensive retinopathy (resolved) and nephropathy presents with increasing shortness of breath. He was unable to make it to his dialysis on Friday and instead presented to the hospital. He was able to undergo dialysis on Friday and they were able to take off a little over 2-1/2 L. With that he was feeling much better, his orthopnea has completely resolved and he no longer has any shortness of breath. He is no longer needing nasal cannula to maintain his oxygen saturations.Extensive discussion with him in terms of his dietary restrictions to fluid, I recommend that he have a 1.5 L fluid restriction per day he expressed understanding to this requirement. He also did have an echo cardiology to evaluate his mitral valve stenosis and you will need to follow-up with them as well. His initial trauma opponent which was slightly elevated actually improved after dialysis therefore with that and echo he has had normal cardiac cath in November 2018, this is likely not CAD and he was just observed. Cardiology felt that he was stable for discharge today on 2.5 mg of p.o. Eliquis twice daily and therefore I discussed the risks and benefits of discharge with him and he expressed understanding and his desire to go home. I did explain to him that he needs to follow-up with cardiology and have dialysis tomorrow and he expressed understanding. Patient Problems: Active and Suspected Problems (Last Reviewed 07/05/19 @ 03:05 by Lg Krishnan MD) Pulmonary edema (Acute) Chest pain, unspecified (Acute) - Physical Exam Vitals/I&O's: Vital Signs Temp Pulse Resp BP Pulse Ox 98 F 99 16 102/69 100 11/09/19 10:15 11/09/19 11:39 11/09/19 10:15 11/09/19 11:39 11/09/19 10:15 Oxygen Flow Rate (L/min) 3 Oxygen Delivery Method Nasal Cannula Weight: 294 lb 1.546 oz Body Mass Index (BMI) 42.6 Intake and Output for Last 24 Hours 11/07/19 11/08/19 11/09/19 23:59 23:59 23:59 Intake Total 560 / 560 Output Total 2600 / 2600 Balance -2039 / General: Alert, Oriented x3, Cooperative, No apparent distress HEENT: Atraumatic, PERRLA, EOMI, Normocephalic Oral: Moist Mucosa Neck: Supple, No JVD Lungs: Clear to auscultation, Normal air movement, No rhonchi, No wheeze, No rales, Diminished Cardiovascular: Regular Rate and Rhythm, Normal S1, Normal S2, No murmurs Abdomen: Soft, Non Tender, Non-Distended, No Hepato-splenomegaly, Obese Extremities: Capillary Refill Less than 3 Seconds, Edema Skin: No rashes, No breakdown Neurological: Neuro grossly intact, Sensory exam intact to light touch and pain Psych/Mental Status: Normal Affect, Appropriate Laboratory Results 11/08/19 15:40: Troponin I 0.414 H 11/08/19 18:20: Troponin I 0.416 H 11/09/19 06:40: WBC 5.6, RBC 3.23 L, Hgb 9.5 L, Hct 30.4 L, MCV 94.1 H, MCH 29.4, MCHC 31.3 L, RDW Std Deviation 55.9 H, RDW Coeff of Lance 16.2 H, Plt Count 176, MPV 10.4, Immature Gran % (Auto) 0.500, Neut % (Auto) 66.7, Lymph % (Auto) 10.3 L, [place] % (Auto) 14.4 H, Eos % (Auto) 7.4 H, Baso % (Auto) 0.7, Absolute Neuts (auto) 3.8, Absolute Lymphs (auto) 0.58 L, Nucleated RBC % 0, Differential Comment COMMENT 02/11/20 06:40: Sodium 133 L, Potassium 4.3, Chloride 94 L, Carbon Dioxide 28.0, Anion Gap 11, BUN 46 H, Creatinine 8.72 H*, Estim Creat Clear Calc 11.98, Est GFR (MDRD) Af Amer 9 L, Est GFR (MDRD) Non-Af 7 L, BUN/Creatinine Ratio 5.3 L, Glucose 81, Calcium 8.0 L, Total Bilirubin 0.70, AST 14 L, ALT 14 L, Alkaline Phosphatase 60, Total Protein 7.3, Albumin 3.0 L, Globulin 4.3 H, Albumin/Globulin Ratio 0.7 L Current Medications Acetaminophen (Tylenol) 500 mg PO Q4H PRN PRN PRN Reason: HEADACHE Albuterol Sulfate (Ventolin Aerosols) 2.5 mg INHALATION Q4H PRN PRN PRN Reason: SOB/WHEEZE Apixaban (Eliquis) 2.5 mg PO BID [facility] Cinacalcet (Sensipar) 60 mg PO MoWeFr@1000 [facility] Sodium Chloride () 250 mls @ 15 mls/hr IV .[id number] PRN PRN Reason: Saline Flush Sodium Chloride () 250 mls @ 15 mls/hr IV .[id number] PRN PRN Reason: Additional IVPB Infusion Ibuprofen (Motrin) 600 mg PO Q6H PRN PRN PRN Reason: Pain Score 1-1010 Last Admin: 11/08/19 21:54 Dose: 600 mg Documented by: Melatonin (Melatonin) 3 mg PO QHS PRN PRN PRN Reason: INSOMNIA Metoprolol Tartrate (Lopressor (Beta Yossi)) 25 mg PO BID [facility] Last Admin: 11/09/19 11:39 Dose: 25 mg Documented by: Ondansetron HCl (Zofran) 4 mg IV Q8H PRN PRN PRN Reason: NAUSEA/VOMITING Sodium Chloride () 10 - 40 ml IV UD PRN PRN Reason: SALINE FLUSH Discharge Activity: Return to Normal Activity Call your doctor if you observe: Fever of 101 or Higher, Shortness of breath, Dizziness, Fainting spells, Swelling in the ankles, Chest pain, Increased palpitations (irregular heartbeat) Home Medications: Medications to take at Discharge cinacalcet 60 mg tablet 60 mg PO MOWEFR 10/10/17 Ferric Citrate [Auryxia] 630 mg PO TIDCM 02/05/19 Metoprolol Tartrate [Lopressor (beta yossi)] 25 mg PO BID #60 tab 07/07/19 Albuterol Inhaler [Ventolin Hfa] 2 puff INHALATION Q4H PRN PRN #1 inhaler 10/13/19 Apixaban [Eliquis] 2.5 mg PO BID #60 tab 11/09/19 Following Prescrptions Were Given to Patient: Apixaban [Eliquis] 2.5 mg PO BID #60 tab Transmission Status: Sent to [facility] Primary Care Physician: Pawel Banda MD [Primary Care Provider] - Please follow up with your Primary Care Physician in: 3-5 days Please Follow Up With: Pawel Banda MD Please Follow Up With: Nnamdi Moreno MD When: 2-4 weeks Disposition: Home Minutes spent on discharge:: 35 Patient Condition:: Stable Medical Necessity - Tobacco Use Smoking Status: Never smoker Meaningful Use Info Meaningful Use Diagnoses (Choose all that apply): None applicable Code Visit Inpatient E&M: 76594 Disch Hosp
--- NOTE | 2019-11-09 12:45 | PN.RENAL_ITS ---
Patient Problems: Active and Suspected Problems (Last Reviewed 07/05/19 @ 03:05 by Lg Krishnan MD) Pulmonary edema (Acute) Chest pain, unspecified (Acute) Subjective: no cp/sob - Physical Exam Vitals/I&O's: Vital Signs Temp Pulse Resp BP Pulse Ox 98 F 99 16 102/69 100 11/09/19 10:15 11/09/19 11:39 11/09/19 10:15 11/09/19 11:39 11/09/19 10:15 Oxygen Flow Rate (L/min) 3 Oxygen Delivery Method Nasal Cannula Weight: 133.4 kg Body Mass Index (BMI) 42.6 Intake and Output for Last 24 Hours 11/07/19 11/08/19 11/09/19 23:59 23:59 23:59 Intake Total 560 / 560 Output Total 2600 / 2600 Balance -2039 / -2039 General: Alert, Oriented x3 HEENT: Atraumatic, EOMI Oral: Moist Mucosa Neck: Supple Lungs: Clear to auscultation, Normal air movement Cardiovascular: Regular rate, Regular Rhythm, Normal S1, Normal S2 Abdomen: Bowel Sounds Present, Obese Extremities: No clubbing, No cyanosis, - - avg LE Neurological: Cranial nerves II-XII grossly intact Laboratory Results 11/08/19 15:40: Troponin I 0.414 H 11/08/19 18:20: Troponin I 0.416 H 11/09/19 06:40: WBC 5.6, RBC 3.23 L, Hgb 9.5 L, Hct 30.4 L, MCV 94.1 H, MCH 29.4, MCHC 31.3 L, RDW Std Deviation 55.9 H, RDW Coeff of Lance 16.2 H, Plt Count 176, MPV 10.4, Immature Gran % (Auto) 0.500, Neut % (Auto) 66.7, Lymph % (Auto) 10.3 L, [place] % (Auto) 14.4 H, Eos % (Auto) 7.4 H, Baso % (Auto) 0.7, Absolute Neuts (auto) 3.8, Absolute Lymphs (auto) 0.58 L, Nucleated RBC % 0, Differential Comment COMMENT 11/09/19 06:40: Sodium 133 L, Potassium 4.3, Chloride 94 L, Carbon Dioxide 28.0, Anion Gap 11, BUN 46 H, Creatinine 8.72 H*, Estim Creat Clear Calc 11.98, Est GFR (MDRD) Af Amer 9 L, Est GFR (MDRD) Non-Af 7 L, BUN/Creatinine Ratio 5.3 L, Glucose 81, Calcium 8.0 L, Total Bilirubin 0.70, AST 14 L, ALT 14 L, Alkaline Phosphatase 60, Total Protein 7.3, Albumin 3.0 L, Globulin 4.3 H, Albumin/Globulin Ratio 0.7 L Current Medications Acetaminophen (Tylenol) 500 mg PO Q4H PRN PRN PRN Reason: HEADACHE Albuterol Sulfate (Ventolin Aerosols) 2.5 mg INHALATION Q4H PRN PRN PRN Reason: SOB/WHEEZE Apixaban (Eliquis) 2.5 mg PO BID [facility] Cinacalcet (Sensipar) 60 mg PO MoWeFr@1000 [facility] Sodium Chloride () 250 mls @ 15 mls/hr IV .[id number] PRN PRN Reason: Saline Flush Sodium Chloride () 250 mls @ 15 mls/hr IV .[id number] PRN PRN Reason: Additional IVPB Infusion Ibuprofen (Motrin) 600 mg PO Q6H PRN PRN PRN Reason: Pain Score 1-10/10 Last Admin: 11/08/19 21:54 Dose: 600 mg Documented by: Melatonin (Melatonin) 3 mg PO QHS PRN PRN PRN Reason: INSOMNIA Metoprolol Tartrate (Lopressor (Beta Yossi)) 25 mg PO BID [facility] Last Admin: 11/09/19 11:39 Dose: 25 mg Documented by: Ondansetron HCl (Zofran) 4 mg IV Q8H PRN PRN PRN Reason: NAUSEA/VOMITING Sodium Chloride () 10 - 40 ml IV UD PRN PRN Reason: SALINE FLUSH Medical Necessity - Tobacco Use Smoking Status: Never smoker Assessment/Plan All Active Problems (Last Reviewed 07/05/19 @ 03:05 by Lg Krishnan MD) Sepsis (Acute) Community acquired pneumonia (Acute) Bacteremia (Acute) Pulmonary edema (Acute) Chest pain, unspecified (Acute) History of bacterial endocarditis (Resolved) ESRD Anemia CKD MBD HTN CP bp ok continue current meds HD tomorrow ANABELLA with HD continue sensipar monitor ca phos compliance with low salt diet and fluid restriction reinforced.
[2019-11-09] MEDS: APIXABAN 2.5 MG TABLET PO (13:05)
--- NOTE | 2019-11-09 13:40 | PHA.DC.MR ---
Pharmacy Service has performed discharge medication reconciliation for this patient. The patient's discharge medication list was reviewed for discrepancies and discrepancies were resolved. Home Medications cinacalcet 60 mg tablet 60 mg PO MOWEFR 10/10/17 Ferric Citrate [Auryxia] 630 mg PO TIDCM 02/05/19 Metoprolol Tartrate [Lopressor (beta zbigniew)] 25 mg PO BID #60 tab 07/07/19 Albuterol Inhaler [Ventolin Hfa] 2 puff INHALATION Q4H PRN PRN #1 inhaler 10/13/19 Apixaban [Eliquis] 2.5 mg PO BID #60 tab 11/09/19 No new medications, patient has previously taken apixaban.
--- NOTE | 2019-11-10 14:37 | CASEMGMT ---
RACHEL PARNELL Discharge Follow-Up Phone Call. Lace: 13 Strata: 3 Discharge Date: 11/09/19 Adm Dx: SOB w/volume overload. Attempted discharge follow-up phone call. No answer. Message left for pt to return call to CM if he has any concerns/needs. Phone number provided. Sandra KENNEDY RN CM
== END 2019-11-09 16:25 | disposition home or self-care (01) | DRG 291 ==
LOC: ED 08:57 → PCU 09:37
PROVIDERS: Admitting Provider Family Medicine; Emergency Provider Emergency Medicine; PCP Internal Medicine; Visit Provider Family Medicine
DX: I13.2 Hypertensive heart and chronic kidney disease with heart failure and with stage 5 chronic kidney disease, or end stage renal disease (principal); I50.33 Acute on chronic diastolic (congestive) heart failure; N18.6 End stage renal disease; J96.01 Acute respiratory failure with hypoxia; Z68.41 Body mass index [BMI] 40.0-44.9, adult; N25.81 Secondary hyperparathyroidism of renal origin; I27.20 Pulmonary hypertension, unspecified; I48.0 Paroxysmal atrial fibrillation; R74.8 Abnormal levels of other serum enzymes; E66.01 Morbid (severe) obesity due to excess calories; E87.5 Hyperkalemia; D63.8 Anemia in other chronic diseases classified elsewhere; Z86.711 Personal history of pulmonary embolism; Z99.2 Dependence on renal dialysis; I05.0 Rheumatic mitral stenosis; R07.9 Chest pain, unspecified; G47.33 Obstructive sleep apnea (adult) (pediatric); H91.90 Unspecified hearing loss, unspecified ear
CPT/HCPCS: 36415; 71275; 80048; 80053; 84484; 85025; 90937; 93005; 93306; 94640; 97802; 99285; J7030; Q9957; Q9967; A4216; C8929; G0257

== ENCOUNTER 2019-12-27 04:43 | Inpatient (IN) | payer MEDICARE, MEDICAID, SELFPAY ==
[2019-11-16 13:50] VITALS: BMI 42.6
[2019-12-27] VITALS (26 sets, daily range): BP systolic 90–166; BP diastolic 53–87; PULSE 103–126; RESP 18–37; TEMP 36.3–37.3; O2SAT 87–100; BMI 43.2; BMI 42.3
--- NOTE | 2019-12-27 04:45 | RAD_ITS ---
STUDY: X-RAY CHEST REASON FOR EXAM: Male, 39 years old. SOB TECHNIQUE: Single AP portable view of the chest. COMPARISON: 10/13/2019. FINDINGS: There are extensive bilateral pulmonary infiltrates, with relative sparing of the upper lung page.. There is no demonstrated pleural abnormality. Normal size heart. Normal mediastinum and michael. Normal visualized pulmonary arteries. Normal visualized aortic arch and descending thoracic aorta. There is S-shaped thoracic scoliosis. There degenerative changes of the shoulders, with deformity of the left humeral head. There is no demonstrated abnormality of the visualized soft tissue structures of the upper abdomen. RAD/Chest 1 View (Portable) IMPRESSION: Extensive bilateral pulmonary infiltrates. Electronically Signed: Germán Carpenter MD at 5:29 EDT , Service support ,
--- NOTE | 2019-12-27 04:45 | EKG12_ITS ---
Test Reason : CHEST PAIN Blood Pressure : / mmHG Vent. Rate : 121 BPM Atrial Rate : 121 BPM P-R Int : 154 ms QRS Dur : 070 ms QT Int : 316 ms P-R-T Axes : 068 164 063 degrees QTc Int : 448 ms Sinus tachycardia Right axis deviation Pulmonary disease pattern Abnormal ECG Confirmed by SALMA STAHL, JACOBY ([id number]), editor index MIKI PAULINO ([id number]) on 12/27/2019 1:43:46 PM Referred By: MORIAH Confirmed By:JACOBY MARSH MD
[2019-12-27 05:10] LABS: Absolute Lymphocyte Count 0.56 X10^3/uL (0.83-4.51); Absolute Neutrophil Count 7.5 X10^3/uL (2.0-7.7); Basophil# 0.04 X10^3/uL; Basophil% 0.4 % (0-1); Eosinophil# 0.24 X10^3/uL; Eosinophils% 2.6 % (0-5); Hematocrit 35.3 % (40-54); Hemoglobin 11.1 g/dL (13.0-16.5); Lymphocyte # 0.56 X10^3/ul (4.0); Lymphocyte % 6.2 % (19-41); Mean Corp Hgb Conc 31.4 g/dL (32-36); Mean Corpuscular Hgb 29.8 pg (27.0-32.0); Mean Corpuscular Volume 94.6 fL (80-94); Mean Platelet Vol. 10.8 fl (6.2-12.0); Monocyte# 0.77 X10^3/uL; Monocyte% 8.5 % (0-10); NRBC Flagged by Analyzer 0 % (0-5); Neutrophil # 7.45 X10^3/uL (2.7-7.7); Neutrophil % 81.9 % (47-70); POSITIVE DIFFERENTIAL YES; Platelet Count 203 K/mm3 (150-450); RBC Distribution Width CV 15.5 % (11.6-14.6); RBC Distribution Width SD 53.6 fl (35.1-43.9); Red Blood Count 3.73 M/mm3 (4.6-6.2); White Blood Count 9.1 K/mm3 (4.4-11.0)
[2019-12-27 05:13] LABS: Differential Indicated SCAN CRITERIA MET
[2019-12-27] MEDS: Morphine 4 MG/ML Syringe IV (05:26)
[2019-12-27 05:27] LABS: Anion Gap 14 (5-15); BUN 74 mg/dL (7-18); BUN/Creat Ratio 5.6 RATIO (10-20); Calcium,Total 8.6 mg/dL (8.5-10.1); Chloride 96 mmol/L (98-107); EST Glomerular Filtration Rate 5 mL/min (>60); Est Glom Filt Rate - Afr Amer 6 mL/min (>60); Estimated Creatinine Clearance 7.97 ml/min; Glucose 95 mg/dL (74-106); Potassium 5.1 mmol/L (3.5-5.1); Sodium Level 137 mmol/L (136-145)
[2019-12-27 05:32] LABS: Differential Comment SCANNED
[2019-12-27 05:33] LABS: Reactive Lymphocyte RARE
--- NOTE | 2019-12-27 06:27 | PCM.HP.STD ---
Problem List (1) ESRD on hemodialysis Status: Acute (2) Pulmonary edema Status: Acute (3) Chest pain Status: Acute History of Present Illness Date of Admission: 12/27/19 Chief Complaint: Shortness of breath for 1 day The patient is a 39 year old M with history of ESRD on hemodialysis, hypertension came to ER with shortness of breath for 1 day. Patient admits that he did not miss his dialysis session, last one on Friday, 12/24. He also complained of midsternal chest pain, localized, feels like tightness without radiation to arm or shoulder. No dizziness or lightheadedness. Complaint of cough that is started yesterday and states it happens when he gets pulmonary edema. No fever or chills. No other URI symptoms or sick contact or flulike symptoms. In ED, chest x-ray was done which shows extensive bilateral alveolar pulmonary infiltrates suggestive of pulmonary edema with relatively sparing of upper lung page. Twelve-lead EKG was done reported as sinus tachycardia at 121 bpm with pulmonary disease pattern, right axis deviation. [] Triage vital shows tachycardia heart rate 136/min, respiratory 35, pulse ox 87% on room air afebrile. 98% on 6 L of oxygen. Past Medical History Past Medical History (Chronic Problems): Chronic Problems (Last Reviewed 11/16/19 @ 13:19 by Kailyn Bryant) PAF (paroxysmal atrial fibrillation) (Chronic) Dialysis patient (Chronic) Left shoulder pain (Chronic) Anemia of chronic disorder (Chronic) Hypertension (Chronic) ESRD (end stage renal disease) (Chronic) Due to hypertension, On hemodialysis, TTS, followed by Dr. 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) Mitral valve disease (Chronic) Mitral valve stenosis (Chronic) Sleep apnea (Chronic) Hearing loss (Chronic) in both ears Medical History: Medical History (Last Reviewed 11/16/19 @ 13:19 by Kailyn Bryant) Mitral valve stenosis (Chronic) I05.0 Sleep apnea (Chronic) G47.30 History of blood clots (Inactive) Z86.718 fistula developed a clot and had to be surgically removed Hearing loss (Chronic) H91.90 in both ears Afib I48.91 ESRD (end stage renal disease) N18.6 Anemia of chronic disease D63.8 HTN (hypertension) I10 Allergies No Known Allergies Allergy (Verified 11/16/19 13:18) Home Medications: Ambulatory Orders Medication Instructions Recorded cinacalcet 60 mg tablet 60 mg PO MOWEFR 10/10/17 Ferric Citrate [Auryxia] 630 mg PO TIDCM 02/05/19 Metoprolol Tartrate [Lopressor 25 mg PO BID #60 tab 07/07/19 (beta zbigniew)] Albuterol Inhaler [Ventolin Hfa] 2 puff INHALATION Q4H PRN PRN #1 10/13/19 inhaler Apixaban [Eliquis] 2.5 mg PO BID #60 tab 11/09/19 compress.stocking,knee,reg,lrg See Rx Instructions .ROUTE 11/16/19 .MEDSUPPLY #2 ea Surgical History: Surgical History (Last Reviewed 11/16/19 @ 13:19 by Kailyn Bryant) history of cather replacement Left Groin 04/21/19 Surgical History: herniorrhaphy, - - aVF x2, catheter placements, right upper extremity aneurysm removed. Psychiatric History: No pertinent psych hx Smoking Status: Never smoker - *Family History Paternal Family History: Family History (Last Reviewed 11/16/19 @ 13:19 by Kailyn Bryant) Other Adopted History Items: - - Patient was adopted and does not know his maternal or paternal family history. Maternal Family History: Family History (Last Reviewed 11/16/19 @ 13:19 by Kailyn Bryant) Other Adopted History Items: - - Patient was adopted and does not know his maternal or paternal family history. Review of Systems Constitutional: Denies: Chills, Fever, Weight Change HEENT: Denies: Head Aches, Sinus Congestion, Sinus Drainage Cardiovascular: Reports: Chest Pain. Denies: Palpitations Respiratory: Reports: Cough, Shortness of Breath, Shortness of breath at rest, Shortness of breath upon exertion. Denies: Hemoptysis, Sputum production Gastrointestinal: Denies: Abdominal Pain, Nausea, Vomiting Genitourinary: Reports: - - on HD, Anuria. Denies: Dysuria Musculoskeletal: Denies: Joint Pain, Joint Tenderness Skin: Denies: Rash, Wounds Neurological: Denies: Numbness, Tingling, Focal weakness Psychiatric: Denies: Anxiety, Depression, Homicidal Ideations, Suicidal Ideations Hematologic/ Lymphatic: Denies: Easy Bruising, Easy Bleeding VTE Information - Inpt Only VTE Present on Admission: No VTE Mechan Device Prophylaxis: None VTE Pharm Prophylaxis ordered?: No Reason prophylaxis not ordered:: Procedure Not Indicated Patient Problems: Active and Suspected Problems (Last Reviewed 11/16/19 @ 13:19 by Kailyn Bryant) ESRD on hemodialysis (Acute) Pulmonary edema (Acute) - Physical Exam Vitals/I&O's: Vital Signs Temp Pulse Resp BP Pulse Ox 98.5 F 124 H 36 H 166/87 H 95 12/27/19 06:13 12/27/19 06:13 12/27/19 06:13 12/27/19 06:13 12/27/19 06:13 Oxygen Flow Rate (L/min) 6 Oxygen Delivery Method Nasal Cannula Weight: 301 lb 9.478 oz Body Mass Index (BMI) 43.2 General: Alert, Oriented x3, Cooperative HEENT: Atraumatic, PERRLA, EOMI, Normocephalic Neck: Supple, No JVD, Negative Carotid Bruits Lungs: Diminished, Rales, Short of Breath - Bilateral lower lobes fine rales present., Using Accessory Muscles Cardiovascular: Regular Rhythm, Normal S1, Normal S2, No murmurs, Tachycardic Abdomen: Bowel Sounds Present, Soft, Non Tender, Non-Distended Extremities: Capillary Refill Less than 3 Seconds, Edema Skin: No rashes, No breakdown Musculoskeletal: No Tenderness to Palpation of Joints or Extremities, Arthritic Changes Neurological: Cranial nerves II-XII grossly intact, Deep Tendon Reflexes 2+/4 and Symmetrical, Neuro grossly intact Psych/Mental Status: Normal Affect, Appropriate Laboratory Results 12/27/19 04:55: WBC 9.1, RBC 3.73 L, Hgb 11.1 L, Hct 35.3 L, MCV 94.6 H, MCH 29.8, MCHC 31.4 L, RDW Std Deviation 53.6 H, RDW Coeff of Lance 15.5 H, Plt Count 203, MPV 10.8, Immature Gran % (Auto) 0.400, Neut % (Auto) 81.9 H, Lymph % (Auto) 6.2 L, [place] % (Auto) 8.5, Eos % (Auto) 2.6, Baso % (Auto) 0.4, Absolute Neuts (auto) 7.5, Absolute Lymphs (auto) 0.56 L, Nucleated RBC % 0, Differential Comment SCANNED, Reactive Lymphocytes RARE 12/27/19 04:55: Sodium 137, Potassium 5.1, Chloride 96 L, Carbon Dioxide 27.0, Anion Gap 14, BUN 74 H, Creatinine 13.10 H*, Estim Creat Clear Calc 7.97, Est GFR (MDRD) Af Amer 6 L, Est GFR (MDRD) Non-Af 5 L, BUN/Creatinine Ratio 5.6 L, Glucose 95, Calcium 8.6 Assessment/Plan All Active Problems (Last Reviewed 11/16/19 @ 13:19 by Kailyn Bryant) Sepsis (Acute) Community acquired pneumonia (Acute) Bacteremia (Acute) Pulmonary edema (Acute) Chest pain, unspecified (Acute) ESRD on hemodialysis (Acute) Pulmonary edema (Acute) History of bacterial endocarditis (Resolved) Chest pain (Acute) The patient is a 39 year old M with history of ESRD on hemodialysis, hypertension came to ER with shortness of breath for 1 day, along with chest pain and cough. Chest x-ray finding consistent with pulmonary edema. 1. Acute on chronic heart failure with preserved EF with pulmonary edema: Patient is being admitted in ICU. Needs urgent hemodialysis. [place] die assembler is been consulted. BNP, magnesium and LFT ordered. Patient has mild cough I think mostly secondary to pulmonary edema. Flu test is negative. Respiratory panel ordered. Albuterol as needed for shortness of breath. Discussed with Dr. ellington. He advised for urgent hemodialysis for which die assembler is already consulted. 2. Atypical chest pain: Serial troponin enzymes. 2D echo was done on 11/09/2019 Normal LV size. Moderate concentric left ventricular hypertrophy. LA mildly enlarged. mitral stenosis, mitral valve area 1.8 cm?. Mild tricuspid insufficiency, PASP 36 mmHg. Left ventricular systolic function is normal. The estimated ejection fraction is 70 %. Mean transmitral valve gradient 15 mmHg. Contrast injection was performed. 3. Paroxysmal atrial fibrillation: Currently y patient is in sinus tachycardia. Most probably secondary to pulmonary edema. 4. Acute hypoxic respiratory failure secondary to acute on chronic heart failure with preserved EF: Needs urgent dialysis. 5. Multiple other comorbidities include hypertension, mitral stenosis, tricuspid overload, obstructive sleep apnea, morbid obesity pulmonary embolism: Multiple comorbidities complicates the present care and expect difficult and delay recovery DVT prophylaxis: Patient is on Eliquis. CODE STATUS: Full code. Inpatient E&M: [id number] Init Hosp L3
--- NOTE | 2019-12-27 06:46 | NURSING ---
ICU 2 PATY PULM EDEMA, ESRD ON HD
--- NOTE | 2019-12-27 07:15 | ED.VISSUMM ---
- ER Visit Summary Date of Service: 12/27/19 Chief Complaint: Shortness of breath History of Present Illness: The patient is a [address] Banda and Dr. Melendez. He reports that his shortness of breath began yesterday. It is severe. It is worsened by laying flat or exertion. Is relieved by rest. He reports he has a cough that began today. He denies any fever or chills. His cough is nonproductive. He reports that he has had continuous chest pain for the past 9 hours. It is an aching pain that is 7-10 at worst and 5-10 currently. States he is had similar symptoms previously with volume overload. Patient does have a history of end-stage renal disease. He had a full round of dialysis on Friday. Physical Examination: Vitals: 98.5, 136/75, 126, 35, 87% on room air which is hypoxic. General: Well-nourished and well-developed. Head: Normocephalic atraumatic. Neck: Supple, no lymphadenopathy. No JVD. Nontender. Cardiovascular: Tachycardic regular rhythm. No murmurs. Respiratory: No respiratory distress. Crackles throughout bilaterally. Abdominal: Soft, nontender, nondistended, normal bowel sounds. No guarding, rebound, or peritoneal signs. Back: Nontender. Extremities: Nontender, 1+ pitting edema lower extremities bilaterally. Skin: Normal color, no rash. Neurologic: Alert and oriented ?3. Cranial nerves II through XII are intact. Normal strength and sensation. Psych: Normal affect. Test Results: Chest x-ray shows pulmonary edema. CBC is marked for an H&H 11.1 35.3, segmented for his 82, lymphocytes of 6. Chem-7 shows a chloride of 96, BUN of 74, creatinine of 13.1. Emergency Department Course and Treatment: Patient was given a dose of morphine IV. On 4 L nasal cannula his pulse ox is 98%. He is resting comfortably. Treatment Plan: The patient was discussed with Dr. Goncalves and Dr. Beavers. He will be admitted to the hospital for dialysis and further evaluation. Disposition: Admitted in improved condition. Impression: 1. Pulmonary edema. 2. End-stage renal disease. This note was generated with [employer] software. It may contain incorrect words, spelling, and punctuation that were not noted in review of the chart prior to signing ED Disposition - Plan for ED Patient: Disposition: Acute Care Hospital [facility]
[2019-12-27 07:58] LABS: Magnesium 2.4 mg/dL (1.6-2.6)
[2019-12-27 08:30] LABS: BNP,B-Type NATRIURETIC PEPTIDE 467.6 pg/mL (0-100)
[2019-12-27] MEDS: oxyCODONE 5 MG Tablet PO ×2 (08:33→17:17)
--- NOTE | 2019-12-27 10:07 | CASEMGMT ---
RN CM Assessment Note Presentation: Pulmonary Edema and ESRD with hemodialysis Pt presented to [facility] with shortness of breath. Pt is hemodialysis pt. Dialysis in ICU this am. PCP: Dr. Banda Specialists: [facility] Preferred Pharmacy: [facility] Insurance: [employer] [facility] Prescription Benefit: yes [place]NO[place] : , [place] Outpt hemodialysis: [facility]. MWF. Call to center, spoke with Farhad and updated on admission. Living Arrangements: Lives in apartment with . Transportation: Drives self to dialysis DME: CPAP HHC: none Patient DC goals: home DC PLAN: aticipate home on discharge. Tristen KENNEDY RN ACM
--- NOTE | 2019-12-27 11:16 | CON.PCM_ITS ---
Problem List (1) ESRD on hemodialysis Status: Acute Consultation - Renal 12/27/19 PCP/ Referring MD: Requesting physician: Dr Colvin Primary care physician: Pawel Banda MD Reason for Consultation:: ESRD - History of Present Illness History of Present Illness: The patient is a 39 year old M who presented to the hospital with complaints of shortness of breath. Nephrology consulted for end-stage renal disease. He has known history of ESRD, on dialysis Friday, Friday, Friday schedule. Last dialysis was Friday last week. Presented with dyspnea. Chest x-ray consistent with pulmonary edema. No fevers, chills, sick contacts. Has dry cough. Usually runs blood pressure related to atrial fibrillation. - Allergies Allergies: Allergies No Known Allergies Allergy (Verified 11/16/19 13:18) - Current Medications Current Medications: Current Medications Acetaminophen (Tylenol) 650 mg PO Q6H PRN PRN PRN Reason: Pain Score 1-10/Temp > 100.7 F Albuterol Sulfate (Ventolin Aerosols) 2.5 mg INHALATION Q2H PRN PRN PRN Reason: SOB/Wheezing Apixaban (Eliquis) 2.5 mg PO BID MACY Aspirin (Ecotrin) 81 mg PO BREAKFAST MACY Cinacalcet (Sensipar) 60 mg PO MoWeFr@1000 MACY Dextrose (D50w Syringe) 0 gm IV X1 PRN; Protocol PRN Reason: Hypoglycemia Glucagon () 1 mg IM .X1 PRN PRN Reason: Hypoglycemia Metoprolol Tartrate (Lopressor (Beta Yossi)) 25 mg PO BID MACY Morphine Sulfate () 4 mg IV Q3H PRN PRN PRN Reason: Pain Score 6-10/10 Nitroglycerin (Nitrostat) 0.4 mg SUBLINGUAL Q5M PRN PRN Reason: CARDIAC/CHEST PAIN Oxycodone HCl (Oxyir) 5 mg PO Q4H PRN PRN PRN Reason: Pain Score 4-5/10 Last Admin: 12/27/19 08:33 Dose: 5 mg Documented by: Prochlorperazine Edisylate (Compazine Iv) 5 mg IV Q4H PRN PRN PRN Reason: Breakthrough Nausea/Vomiting Senna/Docusate Sodium (Senokot-S, Skye-Colace) 2 tablet PO BID PRN PRN Reason: Constipation Sodium Chloride () 10 - 40 ml IV UD PRN PRN Reason: SALINE FLUSH - Past Medical History Past Medical History (Chronic Problems): Chronic Problems (Last Reviewed 11/16/19 @ 13:19 by Kailyn Bryant) PAF (paroxysmal atrial fibrillation) (Chronic) Dialysis patient (Chronic) Left shoulder pain (Chronic) Anemia of chronic disorder (Chronic) Hypertension (Chronic) ESRD (end stage renal disease) (Chronic) Due to hypertension, On hemodialysis, TTS, followed by Dr. 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 - Social History Smoking Status: Never smoker - Family History Paternal Family History: Family History (Last Reviewed 11/16/19 @ 13:19 by Kailyn Bryant) Other Adopted History Items: - - Patient was adopted and does not know his maternal or paternal family history. Maternal Family History: Family History (Last Reviewed 11/16/19 @ 13:19 by Kailyn Bryant) Other Adopted History Items: - - Patient was adopted and does not know his maternal or pater nal family history. Review of Systems Constitutional: Denies: Chills, Fever, Weight Change HEENT: Denies: Head Aches, Sinus Congestion, Sinus Drainage Cardiovascular: Denies: Chest Pain, Palpitations Respiratory: Reports: Cough, Shortness of Breath, Shortness of breath at rest. Denies: Sputum production Gastrointestinal: Denies: Abdominal Pain, Nausea, Vomiting Genitourinary: Denies: Dysuria Musculoskeletal: Denies: Joint Pain, Joint Tenderness Skin: Denies: Rash, Wounds Neurological: Denies: Numbness, Tingling, Focal weakness Psychiatric: Denies: Anxiety, Depression, Homicidal Ideations, Suicidal Ideations Hematologic/ Lymphatic: Denies: Easy Bruising, Easy Bleeding Patient Problems: Active and Suspected Problems (Last Reviewed 11/16/19 @ 13:19 by Kailyn Bryant) ESRD on hemodialysis (Acute) Pulmonary edema (Acute) - Physical Exam Vitals/I&O's: Vital Signs Temp Pulse Resp BP Pulse Ox 98.1 F 117 H 37 H 109/61 94 12/27/19 07:30 12/27/19 10:00 12/27/19 10:00 12/27/19 10:00 12/27/19 10:30 Oxygen Flow Rate (L/min) 5 Oxygen Delivery Method Nasal Cannula Weight: 133.8 kg Body Mass Index (BMI) 42.3 General: Alert, Oriented x3, Cooperative HEENT: Atraumatic, PERRLA, EOMI, Normocephalic Neck: Supple, No JVD, Negative Carotid Bruits Lungs: Rales Cardiovascular: Regular rate, No murmurs Abdomen: Bowel Sounds Present, Soft, Non Tender Extremities: No edema, Capillary Refill Less than 3 Seconds Skin: No rashes, No breakdown Musculoskeletal: No Tenderness to Palpation of Joints or Extremities Neurological: Cranial nerves II-XII grossly intact Psych/Mental Status: Normal Affect, Appropriate Microbiology Past 72 Hours 12/27/19 05:05 Mucosa - Nose Influenza Types A,B Direct FA ([facility]) - Final Laboratory Results 12/27/19 04:55: WBC 9.1, RBC 3.73 L, Hgb 11.1 L, Hct 35.3 L, MCV 94.6 H, MCH 29.8, MCHC 31.4 L, RDW Std Deviation 53.6 H, RDW Coeff of Lance 15.5 H, Plt Count 203, MPV 10.8, Immature Gran % (Auto) 0.400, Neut % (Auto) 81.9 H, Lymph % (Auto) 6.2 L, Rob[place] % (Auto) 8.5, Eos % (Auto) 2.6, Baso % (Auto) 0.4, Absolute Neuts (auto) 7.5, Absolute Lymphs (auto) 0.56 L, Nucleated RBC % 0, Differential Comment SCANNED, Reactive Lymphocytes RARE 12/27/19 04:55: Sodium 137, Potassium 5.1, Chloride 96 L, Carbon Dioxide 27.0, Anion Gap 14, BUN 74 H, Creatinine 13.10 H*, Estim Creat Clear Calc 7.97, Est GFR (MDRD) Af Amer 6 L, Est GFR (MDRD) Non-Af 5 L, BUN/Creatinine Ratio 5.6 L, Glucose 95, Calcium 8.6 12/27/19 04:55: Magnesium 2.4 12/27/19 04:55: B-Natriuretic Peptide 467.6 H 12/27/19 04:55: Troponin I < 0.015 12/27/19 08:24: MRSA (PCR) Pending 12/27/19 08:40: Troponin I 0.031 12/27/19 11:00: Troponin I Pending Current Medications Acetaminophen (Tylenol) 650 mg PO Q6H PRN PRN PRN Reason: Pain Score 1-10/Temp > 100.7 F Albuterol Sulfate (Ventolin Aerosols) 2.5 mg INHALATION Q2H PRN PRN PRN Reason: SOB/Wheezing Apixaban (Eliquis) 2.5 mg PO BID MACY Aspirin (Ecotrin) 81 mg PO BREAKFAST MACY Cinacalcet (Sensipar) 60 mg PO MoWeFr@1000 MACY Dextrose (D50w Syringe) 0 gm IV X1 PRN; Protocol PRN Reason: Hypoglycemia Glucagon () 1 mg IM .X1 PRN PRN Reason: Hypoglycemia Metoprolol Tartrate (Lopressor (Beta Yossi)) 25 mg PO BID MACY Morphine Sulfate () 4 mg IV Q3H PRN PRN PRN Reason: Pain Score 6-10/10 Nitroglycerin (Nitrostat) 0.4 mg SUBLINGUAL Q5M PRN PRN Reason: CARDIAC/CHEST PAIN Oxycodone HCl (Oxyir) 5 mg PO Q4H PRN PRN PRN Reason: Pain Score 4-5/10 Last Admin: 12/27/19 08:33 Dose: 5 mg Documented by: Prochlorperazine Edisylate (Compazine Iv) 5 mg IV Q4H PRN PRN PRN Reason: Breakthrough Nausea/Vomiting Senna/Docusate Sodium (Senokot-S, Skye-Colace) 2 tablet PO BID PRN PRN Reason: Constipation Sodium Chloride () 10 - 40 ml IV UD PRN PRN Reason: SALINE FLUSH Assessment/Plan All Active Problems (Last Reviewed 11/16/19 @ 13:19 by Kailyn Bryant) Sepsis (Acute) Community acquired pneumonia (Acute) Bacteremia (Acute) Pulmonary edema (Acute) Chest pain, unspecified (Acute) ESRD on hemodialysis (Acute) Pulmonary edema (Acute) History of bacterial endocarditis (Resolved) Chest pain (Acute) End-stage renal disease Congestive heart failure Plan for dialysis today. Discussed with dialysis staff. Seen on dialysis. He usually runs low blood pressure related to atrial fibrillation. Heart rate is now around 1 10-1 15. We will try for 3 L as tolerated. Atrial fibrillation. Heart rate is now around 115. Medications as per ICU team.
[2019-12-27 12:11] LABS: M R Staph aureus DNA By PCR Negative (Negative); Probe Check PASS; Specimen Processing Control PASS
--- NOTE | 2019-12-27 15:17 | DIALYSIS ---
HD x 4 hours complete. Tolerated tx well. Ran on 2k bath. UF of 3350ml. System clotted during tx. Able to return the blood. A new system was set and pt was able to finish tx. Used right thigh graft. Kirkland removed post tx and pressure applied x 10 minutes. Hemostasis achieved. Fresh gauze and tape applied. Report was given to RACHEL Del Cid.
[2019-12-27] MEDS: Cinacalcet HCl 30 MG Tablet 60 MG PO (15:22)
[2019-12-27] MEDS: APIXABAN 2.5 MG TABLET PO ×2 (15:23→21:19)
[2019-12-27] MEDS: Aspirin E.C. 81 MG Tablet PO (15:23)
[2019-12-28] VITALS (13 sets, daily range): BP systolic 89–111; BP diastolic 43–58; PULSE 101–117; RESP 16–18; TEMP 36.5–37.4; O2SAT 94–99
--- NOTE | 2019-12-28 05:09 | CPS ---
pt stated he wears 14cmhoh, but later took off cpap stating it was too much. cpap adjusted to 9 per pt request
[2019-12-28 05:59] LABS: Absolute Lymphocyte Count 0.75 X10^3/uL (0.83-4.51); Absolute Neutrophil Count 4.3 X10^3/uL (2.0-7.7); Basophil# 0.03 X10^3/uL; Basophil% 0.5 % (0-1); Eosinophils% 4.8 % (0-5); Hematocrit 32.3 % (40-54); Hemoglobin 10.3 g/dL (13.0-16.5); Lymphocyte # 0.75 X10^3/ul (4.0); Mean Corp Hgb Conc 31.9 g/dL (32-36); Mean Corpuscular Hgb 30.6 pg (27.0-32.0); Mean Corpuscular Volume 95.8 fL (80-94); Mean Platelet Vol. 10.8 fl (6.2-12.0); Monocyte# 0.81 X10^3/uL; NRBC Flagged by Analyzer 0 % (0-5); Neutrophil # 4.31 X10^3/uL (2.7-7.7); Neutrophil % 69.2 % (47-70); Platelet Count 177 K/mm3 (150-450); RBC Distribution Width CV 15.9 % (11.6-14.6); RBC Distribution Width SD 55.5 fl (35.1-43.9); Red Blood Count 3.37 M/mm3 (4.6-6.2); White Blood Count 6.2 K/mm3 (4.4-11.0)
[2019-12-28 06:25] LABS: AST(SGOT) 12 U/L (15-37); Alanine Aminotransfer ALT/SGPT 9 U/L (16-61); Albumin, Serum 2.8 g/dL (3.2-5.0); Alkaline Phosphatase 62 U/L (45-117); Anion Gap 12 (5-15); BUN 46 mg/dL (7-18); BUN/Creat Ratio 4.8 RATIO (10-20); Bilirubin, Direct 0.17 mg/dL (0.00-0.30); Chloride 93 mmol/L (98-107); Creatinine, Serum 9.67 mg/dL (0.70-1.30); EST Glomerular Filtration Rate 7 mL/min (>60); Est Glom Filt Rate - Afr Amer 8 mL/min (>60); Globulin 5.3 g/dL (2.2-4.2); Glucose 98 mg/dL (74-106); Potassium 4.5 mmol/L (3.5-5.1); Protein, Total 8.1 g/dL (6.4-8.2); Sodium Level 135 mmol/L (136-145)
[2019-12-28] MEDS: oxyCODONE 5 MG Tablet PO ×2 (06:46→23:14)
--- NOTE | 2019-12-28 09:03 | RAD_ITS ---
STUDY: X-RAY CHEST REASON FOR EXAM: Male, 39 years old. CHF TECHNIQUE: PA and lateral views of the chest. COMPARISON: Comparison is made with prior study dated December 27, 2019. FINDINGS: EKG electrodes are seen. Since prior study, there has been mild to moderate improvement in the bilateral focal areas of airspace disease although residual changes persist more prominent in the right lower lobe. Further follow-up is recommended. There is no demonstrated pleural abnormality. Normal size heart. Normal mediastinum and michael. Normal visualized pulmonary arteries. Normal visualized aortic arch and descending thoracic aorta. There is a S-shaped dextroscoliosis of the thoracic spine. There is degenerative osteoarthritis of the bilateral shoulders. Stable deformity of the left humeral head. There is no demonstrated abnormality of the visualized soft tissue structures of the upper abdomen. RAD/Chest PA and Lateral IMPRESSION: There has been improved aeration of both lungs as compared to prior study although residual changes persist. Further follow-up is recommended. Electronically Signed: Ed Vega, at 10:59 EDT , Service support ,
--- NOTE | 2019-12-28 10:29 | CASEMGMT ---
Addendum entered by Jaja Mendieta 12/28/19 10:30: Pt states no need for any further resources at this time. Glo RAMOS CM Original Note: Per pt, his OP dialysis is MWF at 0610. Glo RAMOS CM
--- NOTE | 2019-12-28 11:09 | CASEMGMT ---
Patient has a Healthcare Power of Load Manager and a Healthcare Living Will on file at [facility]. Mireya ANTONIO MSW
[2019-12-28] MEDS: APIXABAN 2.5 MG TABLET PO ×2 (13:40→21:23)
[2019-12-28] MEDS: Aspirin E.C. 81 MG Tablet PO (13:40)
--- NOTE | 2019-12-28 15:59 | PN.RENAL_ITS ---
Patient Problems: Active and Suspected Problems (Last Reviewed 11/16/19 @ 13:19 by Kailyn Bryant) ESRD on hemodialysis (Acute) Pulmonary edema (Acute) Subjective: no new events - Physical Exam Vitals/I&O's: Vital Signs Temp Pulse Resp BP Pulse Ox 99.3 F H 109 H 18 106/48 L 99 12/28/19 09:57 12/28/19 15:03 12/28/19 09:57 12/28/19 09:57 12/28/19 09:57 Oxygen Flow Rate (L/min) 2 Oxygen Delivery Method Room Air Weight: 131.2 kg Body Mass Index (BMI) 42.3 Intake and Output for Last 24 Hours 12/26/19 12/27/19 12/28/19 23:59 23:59 23:59 Intake Total 700 / 700 520 / 520 Output Total 3350 / 3350 Balance -2650 / -2650 520 / 520 General: Alert, Oriented x3, Cooperative HEENT: Atraumatic, PERRLA, EOMI, Normocephalic Neck: Supple, No JVD, Negative Carotid Bruits Lungs: Clear to auscultation, Normal air movement Cardiovascular: Regular rate, No murmurs Abdomen: Bowel Sounds Present, Soft, Non Tender Extremities: No edema, Capillary Refill Less than 3 Seconds Skin: No rashes, No breakdown Musculoskeletal: No Tenderness to Palpation of Joints or Extremities Neurological: Cranial nerves II-XII grossly intact Psych/Mental Status: Normal Affect, Appropriate Microbiology Past 72 Hours 12/27/19 09:25 Mucosa - Nose Respiratory Panel (PCR) - Final 12/27/19 05:05 Mucosa - Nose Influenza Types A,B Direct FA ([facility]) - Final Laboratory Results 12/28/19 05:23: Sodium 135 L, Potassium 4.5, Chloride 93 L, Carbon Dioxide 30.0, Anion Gap 12, BUN 46 H, Creatinine 9.67 H*, Estim Creat Clear Calc 10.80, Est GFR (MDRD) Af Amer 8 L, Est GFR (MDRD) Non-Af 7 L, BUN/Creatinine Ratio 4.8 L, Glucose 98, Calcium 8.0 L, Total Bilirubin 0.60, Direct Bilirubin 0.17, AST 12 L , ALT 9 L, Alkaline Phosphatase 62, Total Protein 8.1, Albumin 2.8 L, Globulin 5.3 H 12/28/19 05:23: WBC 6.2, RBC 3.37 L, Hgb 10.3 L, Hct 32.3 L, MCV 95.8 H, MCH 30.6, MCHC 31.9 L, RDW Std Deviation 55.5 H, RDW Coeff of Lance 15.9 H, Plt Count 177, MPV 10.8, Immature Gran % (Auto) 0.500, Neut % (Auto) 69.2, Lymph % (Auto) 12.0 L, Brantley % (Auto) 13.0 H, Eos % (Auto) 4.8, Baso % (Auto) 0.5, Absolute Neuts (auto) 4.3, Absolute Lymphs (auto) 0.75 L, Nucleated RBC % 0 Current Medications Acetaminophen (Tylenol) 650 mg PO Q6H PRN PRN PRN Reason: Pain Score 1-10/Temp > 100.7 F Apixaban (Eliquis) 2.5 mg PO BID [facility] Last Admin: 12/28/19 13:40 Dose: 2.5 mg Documented by: Aspirin (Ecotrin) 81 mg PO BREAKFAST [facility] Last Admin: 12/28/19 13:40 Dose: 81 mg Documented by: Cinacalcet (Sensipar) 60 mg PO MoWeFr@1000 [facility] Last Admin: 12/27/19 15:22 Dose: 60 mg Documented by: Ferrous Sulfate (Ferrous Sulfate) 325 mg PO 1200,1700 [facility] Metoprolol Tartrate (Lopressor (Beta Yossi)) 25 mg PO BID [facility] Last Admin: 12/27/19 21:19 Dose: Not Given Documented by: Oxycodone HCl (Oxyir) 5 mg PO Q4H PRN PRN PRN Reason: Pain Score 4-5/10 Last Admin: 12/28/19 06:46 Dose: 5 mg Documented by: Prochlorperazine Edisylate (Compazine Iv) 5 mg IV Q4H PRN PRN PRN Reason: Breakthrough Nausea/Vomiting Sevelamer Carbonate (Renvela) 800 mg PO TIDCM [facility] Sodium Chloride () 10 - 40 ml IV UD PRN PRN Reason: SALINE FLUSH Medical Necessity - Tobacco Use Smoking Status: Never smoker Assessment/Plan All Active Problems (Last Reviewed 11/16/19 @ 13:19 by Kailyn Bryant) Sepsis (Acute) Community acquired pneumonia (Acute) Bacteremia (Acute) Pulmonary edema (Acute) Chest pain, unspecified (Acute) ESRD on hemodialysis (Acute) Pulmonary edema (Acute) History of bacterial endocarditis (Resolved) Chest pain (Acute) End-stage renal disease Congestive heart failure CXR remains wet. UF today. seen on UF Atrial fibrillation. Heart rate is now around 115. Medications as per ICU team.
--- NOTE | 2019-12-28 16:48 | PN_ITS ---
Patient Problems: Active and Suspected Problems (Last Reviewed 11/16/19 @ 13:19 by Kailyn Bryant) Pulmonary edema (Acute) Subjective: In and examined today, he is currently on room air, his chest x-ray was repeated today and it showed continued diffuse bilateral infiltrates (pulmonary edema) but it appears better than yesterday. Patient denies any shortness of breath or chest pain. I talked briefly with nephrology about his care, he will undergo dialysis today and then again tomorrow. - Physical Exam Vitals/I&O's: Vital Signs Temp Pulse Resp BP Pulse Ox 97.7 F L 104 H 16 89/43 L 94 12/28/19 16:00 12/28/19 16:00 12/28/19 16:00 12/28/19 16:00 12/28/19 16:00 Oxygen Flow Rate (L/min) 2 Oxygen Delivery Method Room Air Weight: 131.2 kg Body Mass Index (BMI) 42.3 Intake and Output for Last 24 Hours 12/26/19 12/27/19 12/28/19 23:59 23:59 23:59 Intake Total 700 / 700 520 / 520 Output Total 3350 / 3350 Balance -2650 / -2650 520 / 520 General: Alert, Oriented x3, Cooperative, No apparent distress, Well developed HEENT: Atraumatic, PERRLA, EOMI, Normocephalic Oral: Moist Mucosa Neck: Supple, No JVD, No Nuchal Rigidity, Trachea Midline, Thyroid Normal Size and Texture Lungs: Clear to auscultation, No rhonchi, No wheeze, No rales, Diminished Cardiovascular: Regular rate, Regular Rhythm, Normal S1, No murmurs Abdomen: Bowel Sounds Present, Soft, Non Tender, Non-Distended Extremities: No clubbing, No cyanosis, No edema, Capillary Refill Less than 3 Seconds Skin: No rashes, No breakdown Musculoskeletal: No Tenderness to Palpation of Joints or Extremities Neurological: Cranial nerves II-XII grossly intact, Neuro grossly intact, Muscle tone normal, Sensory exam intact to light touch and pain, Coordination normal Psych/Mental Status: Normal Affect, Appropriate, Alert and oriented to time, place, person, mood and affect Microbiology Past 72 Hours 12/27/19 09:25 Mucosa - Nose Respiratory Panel (PCR) - Final 12/27/19 05:05 Mucosa - Nose Influenza Types A,B Direct FA ([facility]) - Final Laboratory Results 12/28/19 05:23: Sodium 135 L, Potassium 4.5, Chloride 93 L, Carbon Dioxide 30.0, Anion Gap 12, BUN 46 H, Creatinine 9.67 H*, Estim Creat Clear Calc 10.80, Est GFR (MDRD) Af Amer 8 L, Est GFR (MDRD) Non-Af 7 L, BUN/Creatinine Ratio 4.8 L, Glucose 98, Calcium 8.0 L, Total Bilirubin 0.60, Direct Bilirubin 0.17, AST 12 L , ALT 9 L, Alkaline Phosphatase 62, Total Protein 8.1, Albumin 2.8 L, Globulin 5.3 H 12/28/19 05:23: WBC 6.2, RBC 3.37 L, Hgb 10.3 L, Hct 32.3 L, MCV 95.8 H, MCH 30.6, MCHC 31.9 L, RDW Std Deviation 55.5 H, RDW Coeff of Lance 15.9 H, Plt Count 177, MPV 10.8, Immature Gran % (Auto) 0.500, Neut % (Auto) 69.2, Lymph % (Auto) 12.0 L, [place] % (Auto) 13.0 H, Eos % (Auto) 4.8, Baso % (Auto) 0.5, Absolute Neuts (auto) 4.3, Absolute Lymphs (auto) 0.75 L, Nucleated RBC % 0 Current Medications Acetaminophen (Tylenol) 650 mg PO Q6H PRN PRN PRN Reason: Pain Score 1-10/Temp > 100.7 F Apixaban (Eliquis) 2.5 mg PO BID [facility] Last Admin: 12/28/19 13:40 Dose: 2.5 mg Documented by: Aspirin (Ecotrin) 81 mg PO BREAKFAST [facility] Last Admin: 12/28/19 13:40 Dose: 81 mg Documented by: Cinacalcet (Sensipar) 60 mg PO MoWeFr@1000 [facility] Last Admin: 12/27/19 15:22 Dose: 60 mg Documented by: Ferrous Sulfate (Ferrous Sulfate) 325 mg PO 1200,1700 [facility] Metoprolol Tartrate (Lopressor (Beta Yossi)) 25 mg PO BID [facility] Last Admin: 12/27/19 21:19 Dose: Not Given Documented by: Oxycodone HCl (Oxyir) 5 mg PO Q4H PRN PRN PRN Reason: Pain Score 4-5/10 Last Admin: 12/28/19 06:46 Dose: 5 mg Documented by: Prochlorperazine Edisylate (Compazine Iv) 5 mg IV Q4H PRN PRN PRN Reason: Breakthrough Nausea/Vomiting Sevelamer Carbonate (Renvela) 800 mg PO TIDCM [facility] Sodium Chloride () 10 - 40 ml IV UD PRN PRN Reason: SALINE FLUSH Medical Necessity - Tobacco Use Smoking Status: Never smoker Assessment/Plan All Active Problems (Last Reviewed 11/16/19 @ 13:19 by Kailyn Bryant) Sepsis (Resolved) Community acquired pneumonia (Resolved) Bacteremia (Resolved) Pulmonary edema (Acute) Chest pain, unspecified (Resolved) Pulmonary edema (Acute) History of bacterial endocarditis (Resolved) Chest pain (Resolved) #1 acute pulmonary edema-secondary to end-stage renal disease and diastolic congestive heart failure-patient will be dialyzed again today and will have dialysis again tomorrow, if he is stable tomorrow morning, he may be ready for discharge. #2 acute on chronic diastolic congestive heart failure-due to the patient's end- stage renal disease, oral diuretics cannot be used, aggressive dialysis will need to be continued #3 anemia of chronic renal disease #4 end-stage renal disease on chronic dialysis-nephrology will continue to follow #5 paroxysmal atrial fibrillation-patient on Eliquis and metoprolol, he appears to be in sinus rhythm at this time #6 moderate mitral stenosis Inpatient E&M: 19562 Subs Hosp L2
--- NOTE | 2019-12-28 17:24 | DIALYSIS ---
Hemodialysis IUF tx completed x 2 hours without complications. Pt tolerated tx well, fluid removed 2600ml. Asymptomatic throughout tx despite SBP running in 80-90's for most of tx. BP 106/51 post tx. Verbal report given to RACHEL Gupta post tx.
[2019-12-28] MEDS: SEVELAMER CARBONATE 800 MG TABLET PO (18:23)
[2019-12-28] MEDS: Ferrous Sulfate 325 MG Tablet PO (18:23)
[2019-12-29] VITALS (12 sets, daily range): BP systolic 94–111; BP diastolic 50–57; PULSE 86–106; RESP 16–22; TEMP 36.7–36.8; O2SAT 94–98
--- NOTE | 2019-12-29 01:21 | CPS ---
EPAP titrated to meet pt.'s comfort; +11.
[2019-12-29] MEDS: Heparin 10,000 UNITS/10 ML Vial 5000 UNITS IV (09:30)
--- NOTE | 2019-12-29 09:58 | DCINST_ITS ---
- Discharge Diagnoses Current Active Problems: Current Active and Chronic Problems (Last Reviewed 11/16/19 @ 13:19 by Kailyn Bryant) ESRD on hemodialysis (Chronic) Pulmonary edema (Acute) You will use the following diet at home:: Fluid restricted (specify 2000 mls, 1500 mls) - 1500, Renal (restricted protein/sodium) Your food should be the consistency of: Regular Your liquids should be the consistency of: Regular/Thin Discharge Activity: Return to Normal Activity Call your doctor if you observe: Fever of 101 or Higher, Shortness of breath, Dizziness, Fainting spells, Swelling in the ankles, Chest pain, Increased palpitations (irregular heartbeat) Allergies/Adverse Reactions: Allergies No Known Allergies Allergy (Verified 11/16/19 13:18) Medications to take at Discharge cinacalcet 60 mg tablet 60 mg PO MOWEFR 10/10/17 Ferric Citrate [Auryxia] 630 mg PO TIDCM 02/05/19 Metoprolol Tartrate [Lopressor (beta zbigniew)] 25 mg PO BID #60 tab 07/07/19 Albuterol Inhaler [Ventolin Hfa] 2 puff INHALATION Q4H PRN PRN #1 inhaler 10/13/19 Apixaban [Eliquis] 2.5 mg PO BID #60 tab 11/09/19 compress.stocking,knee,reg,lrg See Rx Instructions .ROUTE .MEDSUPPLY #2 ea 11/16/19 Primary Care Physician: Pawel Banda MD [Primary Care Provider] - Please follow up with your Primary Care Physician in: Telehealth in 1-2 weeks Test Results: Test results from this visit will be discussed in further detail at your follow- up appointment, if applicable.
--- NOTE | 2019-12-29 09:58 | DIALYSIS ---
Report from primary RN Bertha Nunez Hep B sab (positive 14) 10/11/19. Copy of result placed in patient's chart. Access: Right thigh AVG. Site benign, thrill and bruit present, cannulated with 15 gauge needles x 2. Connections secure and visible.
--- NOTE | 2019-12-29 10:00 | DS.PCM_ITS ---
Discharge Date and Diagnosis - Problem List Patient Problems: Active and Suspected Problems (Last Reviewed 11/16/19 @ 13:19 by Kailyn Brynat) Pulmonary edema (Acute) Date of Admission: 12/27/19 Date of Discharge: 12/29/19 - Primary Discharge Diagnosis Active and Suspected Problems (Last Reviewed 11/16/19 @ 13:19 by Kailyn Bryant) Pulmonary edema (Acute) - Secondary Discharge Diagnosis Chronic Problems (Last Reviewed 11/16/19 @ 13:19 by Kailyn Bryant) ESRD on hemodialysis (Chronic) PAF (paroxysmal atrial fibrillation) (Chronic) Dialysis patient (Chronic) Left shoulder pain (Chronic) Anemia of chronic disorder (Chronic) Hypertension (Chronic) ESRD (end stage renal disease) (Chronic) Due to hypertension, On hemodialysis, TTS, followed by Dr. 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) Mitral valve disease (Chronic) Mitral valve stenosis (Chronic) Sleep apnea (Chronic) Hearing loss (Chronic) in both ears Hospital Course and Treatment Imaging Results: CXR: IMPRESSION: Extensive bilateral pulmonary infiltrates. CXR: IMPRESSION: There has been improved aeration of both lungs as compared to prior study although residual changes persist. Further follow-up is recommended. Consults: Nephrology Operations: None Procedures: Dialysis Summary of Care Provided: Per HPI: The patient is a 39 year old M with history of ESRD on hemodialysis, hypertension came to ER with shortness of breath for 1 day. Patient admits that he did not miss his dialysis session, last one on Friday, 12/24. He also complai raymond of midsternal chest pain, localized, feels like tightness without radiation to arm or shoulder. No dizziness or lightheadedness. Complaint of cough that is started yesterday and states it happens when he gets pulmonary edema. No fever or chills. No other URI symptoms or sick contact or flulike symptoms. In ED, chest x-ray was done which shows extensive bilateral alveolar pulmonary infiltrates suggestive of pulmonary edema with relatively sparing of upper lung page. Twelve-lead EKG was done reported as sinus tachycardia at 121 bpm with pulmonary disease pattern, right axis deviation. [] Triage vital shows tachycardia heart rate 136/min, respiratory 35, pulse ox 87% on room air afebrile. 98% on 6 L of oxygen Hospital Course: 1. Acute hypoxic respiratory failure secondary to acute on chronic diastolic CHF and acute pulmonary edema/paroxysmal A. fib/ESRD dialysis MWF/HTN/YEIMY- 39-year-old male with a history of hypertensive retinopathy which has resolved as well as nephropathy presented to the hospital with shortness of breath for about a day. He states that he had been undergoing dialysis and his last dialysis was December 24. He also says that he is compliant with his fluid restriction in his diet. On presentation he was 87% on room air as well as having bilateral pulmonary infiltrates. His flu and respiratory panels were negative, he was started on a fluid restriction as well as dialysis. He had little over 3 L removed on Friday and 2-1/2 L removed yesterday. They are planning on removing potentially 3 L today prior to discharge. He states that he feels much better, and he is gone down about 15 pounds since admission. I did discuss with him the need to follow the renal diet as well as fluid restrictions. No changes were made to his medications, and he has been on sinus rhythm with his metoprolol and Eliquis. He understands the risk and benefits of going home and would like to go home today after dialysis. Patient Problems: Active and Suspected Problems (Last Reviewed 11/16/19 @ 13:19 by Kailyn Bryant) Pulmonary edema (Acute) - Physical Exam Vitals/I&O's: Vital Signs Temp Pulse Resp BP Pulse Ox 98.1 F 96 16 94/51 L 97 12/29/19 08:28 12/29/19 08:28 12/29/19 08:28 12/29/19 08:28 12/29/19 08:28 Oxygen Flow Rate (L/min) 2 Oxygen Delivery Method Room Air Weight: 286 lb 13.142 oz Body Mass Index (BMI) 42.3 Intake and Output for Last 24 Hours 12/27/19 12/28/19 12/29/19 23:59 23:59 23:59 Intake Total 700 / 700 1240 / 1240 120 / 120 Output Total 3350 / 3350 Balance -2650 / -2650 1240 / 1240 120 / 120 General: Alert, Oriented x3, Cooperative, No apparent distress HEENT: Atraumatic, PERRLA, EOMI, Normocephalic Oral: Moist Mucosa Neck: Supple, No JVD Lungs: Clear to auscultation, Normal air movement, No rhonchi, No wheeze, No rales, Diminished Cardiovascular: Regular rate, Regular Rhythm, Normal S1, Normal S2, No murmurs Abdomen: Soft, Non Tender, Non-Distended, No Hepato-splenomegaly Extremities: Capillary Refill Less than 3 Seconds, Edema Skin: No rashes, No breakdown Neurological: Neuro grossly intact, Sensory exam intact to light touch and pain Psych/Mental Status: Normal Affect, Appropriate Microbiology Past 72 Hours 12/27/19 09:25 Mucosa - Nose Respiratory Panel (PCR) - Final 12/27/19 05:05 Mucosa - Nose Influenza Types A,B Direct FA (GRETTA) - Final Current Medications Acetaminophen (Tylenol) 650 mg PO Q6H PRN PRN PRN Reason: Pain Score 1-10/Temp > 100.7 F Apixaban (Eliquis) 2.5 mg PO BID [facility] Last Admin: 12/28/19 21:23 Dose: 2.5 mg Documented by: Aspirin (Ecotrin) 81 mg PO BREAKFAST [facility] Last Admin: 12/28/19 13:40 Dose: 81 mg Documented by: Cinacalcet (Sensipar) 60 mg PO MoWeFr@1000 [facility] Last Admin: 12/27/19 15:22 Dose: 60 mg Documented by: Ferrous Sulfate (Ferrous Sulfate) 325 mg PO 1200,1700 [facility] Last Admin: 12/28/19 18:23 Dose: 325 mg Documented by: Metoprolol Tartrate (Lopressor (Beta Yossi)) 25 mg PO BID [facility] Last Admin: 12/28/19 22:38 Dose: Not Given Documented by: Oxycodone HCl (Oxyir) 5 mg PO Q4H PRN PRN PRN Reason: Pain Score 4-5/10 Last Admin: 12/28/19 23:14 Dose: 5 mg Documented by: Prochlorperazine Edisylate (Compazine Iv) 5 mg IV Q4H PRN PRN PRN Reason: Breakthrough Nausea/Vomiting Sevelamer Carbonate (Renvela) 800 mg PO TIDCM [facility] Last Admin: 12/28/19 18:23 Dose: 800 mg Documented by: Sodium Chloride () 10 - 40 ml IV UD PRN PRN Reason: SALINE FLUSH Discharge Activity: Return to Normal Activity Call your doctor if you observe: Fever of 101 or Higher, Shortness of breath, Dizziness, Fainting spells, Swelling in the ankles, Chest pain, Increased palpitations (irregular heartbeat) Home Medications: Medications to take at Discharge cinacalcet 60 mg tablet 60 mg PO MOWEFR 10/10/17 Ferric Citrate [Auryxia] 630 mg PO TIDCM 02/05/19 Metoprolol Tartrate [Lopressor (beta yossi)] 25 mg PO BID #60 tab 07/07/19 Albuterol Inhaler [Ventolin Hfa] 2 puff INHALATION Q4H PRN PRN #1 inhaler 10/13/19 Apixaban [Eliquis] 2.5 mg PO BID #60 tab 11/09/19 compress.stocking,knee,reg,lrg See Rx Instructions .ROUTE .MEDSUPPLY #2 ea 11/16/19 Primary Care Physician: Pawel Banda MD [Primary Care Provider] - Please follow up with your Primary Care Physician in: Telehealth in 1-2 weeks Disposition: Home Minutes spent on discharge:: 35 Patient Condition:: Stable Medical Necessity - Tobacco Use Smoking Status: Never smoker Meaningful Use Info Meaningful Use Diagnoses (Choose all that apply): CHF - CHF GOLDEN/ARB ordered at discharge?: No Reason GOLDEN/ARB not ordered?: Worsening renal disease Documented LVEF (%): 70 Inpatient E&M: 08370 Disch Hosp
--- NOTE | 2019-12-29 10:12 | PCM.PROGNOTE ---
Patient Problems: Active and Suspected Problems (Last Reviewed 11/16/19 @ 13:19 by Kailyn Bryant) Pulmonary edema (Acute) Subjective: no sob/cp seen on HD tolerating well - Physical Exam Vitals/I&O's: Vital Signs Temp Pulse Resp BP Pulse Ox 98.1 F 96 16 94/56 L 97 12/29/19 08:30 12/29/19 08:30 12/29/19 08:30 12/29/19 08:30 12/29/19 08:30 Oxygen Flow Rate (L/min) 2 Oxygen Delivery Method Room Air Weight: 130.1 kg Body Mass Index (BMI) 42.3 Intake and Output for Last 24 Hours 12/27/19 12/28/19 12/29/19 23:59 23:59 23:59 Intake Total 700 / 700 1240 / 1240 120 / 120 Output Total 3350 / 3350 Balance -2650 / -2650 1240 / 1240 120 / 120 General: Alert, Oriented x3 HEENT: Atraumatic, EOMI Neck: Supple Lungs: Clear to auscultation Cardiovascular: Regular rate, Normal S1, Normal S2 Abdomen: Bowel Sounds Present, Soft, Non Tender Extremities: No clubbing Skin: No rashes Microbiology Past 72 Hours 12/27/19 09:25 Mucosa - Nose Respiratory Panel (PCR) - Final 12/27/19 05:05 Mucosa - Nose Influenza Types A,B Direct FA (GRETTA) - Final Current Medications Acetaminophen (Tylenol) 650 mg PO Q6H PRN PRN PRN Reason: Pain Score 1-10/Temp > 100.7 F Apixaban (Eliquis) 2.5 mg PO BID [facility] Last Admin: 12/28/19 21:23 Dose: 2.5 mg Documented by: Aspirin (Ecotrin) 81 mg PO BREAKFAST [facility] Last Admin: 12/28/19 13:40 Dose: 81 mg Documented by: Cinacalcet (Sensipar) 60 mg PO MoWeFr@1000 [facility] Last Admin: 12/27/19 15:22 Dose: 60 mg Documented by: Ferrous Sulfate (Ferrous Sulfate) 325 mg PO 1200,1700 [facility] Last Admin: 12/28/19 18:23 Dose: 325 mg Documented by: Metoprolol Tartrate (Lopressor (Beta Yossi)) 25 mg PO BID [facility] Last Admin: 12/28/19 22:38 Dose: Not Given Documented by: Oxycodone HCl (Oxyir) 5 mg PO Q4H PRN PRN PRN Reason: Pain Score 4-5/10 Last Admin: 12/28/19 23:14 Dose: 5 mg Documented by: Prochlorperazine Edisylate (Compazine Iv) 5 mg IV Q4H PRN PRN PRN Reason: Breakthrough Nausea/Vomiting Sevelamer Carbonate (Renvela) 800 mg PO TIDCM [facility] Last Admin: 12/28/19 18:23 Dose: 800 mg Documented by: Sodium Chloride () 10 - 40 ml IV UD PRN PRN Reason: SALINE FLUSH Medical Necessity - Tobacco Use Smoking Status: Never smoker Assessment/Plan All Active Problems (Last Reviewed 11/16/19 @ 13:19 by Kailyn Bryant) Sepsis (Resolved) Community acquired pneumonia (Resolved) Bacteremia (Resolved) Pulmonary edema (Acute) Chest pain, unspecified (Resolved) Pulmonary edema (Acute) History of bacterial endocarditis (Resolved) Chest pain (Resolved) ESRD seen on HD tolerating well Compliance with fluid restriction reinforced.Hqs right thigh AVG needles in CKD MBD binders cinacalcet monitor ca phos Anemia resume epo as outpatient getting discharged after HD today.
[2019-12-29] MEDS: Aspirin E.C. 81 MG Tablet PO (13:25)
[2019-12-29] MEDS: APIXABAN 2.5 MG TABLET PO (13:25)
[2019-12-29] MEDS: Cinacalcet HCl 30 MG Tablet 60 MG PO (13:26)
[2019-12-29] MEDS: Metoprolol Tartrate 25 MG Tablet PO (13:26)
[2019-12-29] MEDS: Ferrous Sulfate 325 MG Tablet PO (13:27)
[2019-12-29] MEDS: SEVELAMER CARBONATE 800 MG TABLET PO (13:28)
--- NOTE | 2019-12-29 13:45 | DIALYSIS ---
Addendum entered by Kamar Palacios 12/29/19 14:10: Report given to primary RN, Barbara Nogueira. Original Note: Hemodialysis complete. 4 hour run, 2k bath, net fluid removed 2400 ml. Patient tolerated HD tx well. Right thigh AVG: site benign, thrill and bruit present, needle site pressure held 10 min arterial and 5 men venous. Hemostasis achieved. Report given to primary RNBarbara.
--- NOTE | 2019-12-30 13:49 | CASEMGMT ---
RACHEL PARNELL Discharge Follow-up Phone Call: CELINA: Josie Strata: 4 Call Date: 12/30/19 Discharge Date: 12/29/19 Time of Call: 1345 Duration: 5 min Admitting Diagnosis: PUlmonary Edema, ESRD on HD RACHEL PARNELL completed follow-up phone call after recent hospitalization. Patient states that he is doing well and had no questions regarding discharge instructions. Patient has HD tomorrow and with transportation. Patient is aware of telehealth follow-up with PCP. Patient had no further needs or concerns at this time.
== END 2019-12-29 15:12 | disposition home or self-care (01) | DRG 291 ==
LOC: ED 05:19 → ICU 06:34 → PCU 16:31
PROVIDERS: Admitting Provider Internal Medicine; Emergency Provider Emergency Medicine; PCP Internal Medicine; Visit Provider Family Medicine
DX: I13.2 Hypertensive heart and chronic kidney disease with heart failure and with stage 5 chronic kidney disease, or end stage renal disease (principal); I50.33 Acute on chronic diastolic (congestive) heart failure; J96.01 Acute respiratory failure with hypoxia; N18.6 End stage renal disease; Z68.41 Body mass index [BMI] 40.0-44.9, adult; N25.81 Secondary hyperparathyroidism of renal origin; Z99.2 Dependence on renal dialysis; I05.0 Rheumatic mitral stenosis; E66.01 Morbid (severe) obesity due to excess calories; I48.0 Paroxysmal atrial fibrillation; D63.1 Anemia in chronic kidney disease; H91.93 Unspecified hearing loss, bilateral; Z79.01 Long term (current) use of 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s
CPT/HCPCS: 36415; 71045; 71046; 80048; 80076; 83735; 83880; 84484; 85025; 87633; 87641; 87804; 90937; 93005; 94660; 99251; 99285; J7030; A4216; G0257; G0463

== ENCOUNTER → 2020-02-28 15:14 | Outpatient (CLI) | payer MEDICARE, SELFPAY ==
[2020-02-28 14:47] VITALS: BMI 42.3
[2020-02-28 16:18] LABS: Absolute Lymphocyte Count 0.68 X10^3/uL (0.83-4.51); Absolute Neutrophil Count 4.4 X10^3/uL (2.0-7.7); Basophil# 0.05 X10^3/uL; Basophil% 0.8 % (0-1); Eosinophil# 0.32 X10^3/uL; Eosinophils% 5.1 % (0-5); Hematocrit 38.1 % (40-54); Hemoglobin 11.8 g/dL (13.0-16.5); Lymphocyte # 0.68 X10^3/ul (4.0); Lymphocyte % 10.8 % (19-41); Mean Corpuscular Hgb 29.2 pg (27.0-32.0); Mean Corpuscular Volume 94.3 fL (80-94); Mean Platelet Vol. 10.6 fl (6.2-12.0); Monocyte# 0.86 X10^3/uL; Monocyte% 13.7 % (0-10); NRBC Flagged by Analyzer 0 % (0-5); Neutrophil # 4.35 X10^3/uL (2.7-7.7); Neutrophil % 69.1 % (47-70); Platelet Count 218 K/mm3 (150-450); RBC Distribution Width CV 15.9 % (11.6-14.6); RBC Distribution Width SD 54.1 fl (35.1-43.9); Red Blood Count 4.04 M/mm3 (4.6-6.2); White Blood Count 6.3 K/mm3 (4.4-11.0)
[2020-02-28 16:30] LABS: ALB/GLOB Ratio 0.6 RATIO (0.9-2.4); AST(SGOT) 15 U/L (15-37); Alanine Aminotransfer ALT/SGPT 16 U/L (16-61); Albumin, Serum 3.5 g/dL (3.2-5.0); Alkaline Phosphatase 75 U/L (45-117); Anion Gap 11 (5-15); BUN 25 mg/dL (7-18); BUN/Creat Ratio 3.5 RATIO (10-20); Calcium,Total 8.5 mg/dL (8.5-10.1); Chloride 90 mmol/L (98-107); Creatinine, Serum 7.09 mg/dL (0.70-1.30); EST Glomerular Filtration Rate 9 mL/min (>60); Est Glom Filt Rate - Afr Amer 11 mL/min (>60); Glucose 90 mg/dL (74-106); Potassium 4.1 mmol/L (3.5-5.1); Protein, Total 9.5 g/dL (6.4-8.2); Sodium Level 134 mmol/L (136-145)
[2020-02-28 16:51] LABS: Differential Indicated SCAN CRITERIA MET
[2020-02-28 16:52] LABS: Platelet Estimate ADEQUATE (ADEQ); Red Cell Morphology NORM C+C NORMAL (NORM C&C)
--- OUTSIDE RECORDS SUMMARY | 2020-07-16 06:00 | XMS RPT_ITS | CCD ---
:1980 External Reference #:[id number] Author Organization [facility] Care Team Providers Name Role Phone NIMO Admitting Unavailable NIMO Attending Unavailable LG BARR Attending Unavailable Eun MARTINEZ Referring Unavailable RAN Referring Unavailable LG BARR Attending Unavailable Eun MARTINEZ Referring Unavailable LG BARR Admitting Unavailable LG BARR Attending Unavailable Solo, Eun Unavailable RAY Admitting Unavailable RAY Attending Unavailable IMCA Primary Care Unavailable NIMO Admitting Unavailable NIMO Attending Unavailable IMCA Primary Care Unavailable Justine BARR Attending Unavailable IMCA Referring Unavailable IMCA Primary Care Unavailable Justine BARR Admitting Unavailable Justine BARR Attending Unavailable IMCA Primary Care Unavailable Justine BARR Attending Unavailable IMCA Referring Unavailable IMCA Primary Care Unavailable RAN, Aiwlda Referring Unavailable IMCA Primary Care Unavailable Justine BARR Admitting Unavailable Justine BARR Attending Unavailable IMCA Primary Care Unavailable Justine BARR Admitting Unavailable Justine BARR Attending Unavailable IMCA Primary Care Unavailable IMCA Primary Care Unavailable Justine BARR Admitting Unavailable Justine BARR Attending Unavailable IMCA Primary Care Unavailable NO FAMILY DOCTOR Unavailable Unavailable UNKNOWN Unavailable Unavailable Solo, B Primary Care Provider ELINOR Attending Unavailable RAN, R Referring Unavailable OLEGHE, B Primary Care Unavailable ALONA Attending Unavailable ELINOR Referring Unavailable OLEGHE, B Primary Care Unavailable ALONA Attending Unavailable ELINOR Referring Unavailable OLEGHE, B Primary Care Unavailable SOLO, Danyelle Primary Care Unavailable Sloan STEELE Consulting Unavailable GABRIEL Admitting Unavailable GABRIEL Attending Unavailable Medications Medication Name Sig Date Prescriber Location Acetaminophen / oxyCODONE-acetamin 05-31-2018 [place] [facility] [place] oxyCODONE ophen 5-325 MG Tab Universit y[facility] per tablet Take 1 [facility] ical tablet by mouth Stamps (4321 0) every 6 hours as needed for Pain. 0 05/31/2018 Active carvedilol carveDILOL 3.125 [facility] MG Tab tablet Take Universit y's 3.125 mg by mouth [facility] daily. 0 Active Stamps (4321 0) cinacalcet cinacalcet 60 MG 10-10-2017 [facility] Tab tablet Take 60 Universit y[facility] mg by mouth 2 [facility] times daily. 0 Stamps (22966 ) 10/10/2017 Active ferric citrate Ferric Citrate Historical [facility] (AURYXIA) 1 GM 210 Provider [facility] y[facility] MG(Fe) Tab Take [facility] 210 mg by mouth Stamps (4321 0) daily. 0 Active oxybutynin oxybutynin CR 10 08-03-2018 - Luzrosibel Rojas [place] [facility] MG Tab SR 24 HR 10-02-2018 [facility]'s tablet Take 1 [facility] tablet by mouth Stamps (4321 0) daily. 30 tablet 1 08/03/2018 Active sevelamer sevelamer 800 MG 10-10-2017 [facility] Tab tablet Take University's 800 mg by mouth 3 [facility] ical times daily. 0 Stamps (44717 ) 10/10/2017 Active Problems Active Problems Category Problem Name Status Date Location Chronic kidney disease End stage renal disease Active 006 - [facility] (59797) Deficiency and other Anemia of chronic disease Active 018 - [facility] anemia [facility] (39104) Diabetes mellitus Type 2 diabetes mellitus Active [facility] without complication [facility] (77851) Essential hypertension Benign essential Active 09-29-1998 - [facility] hypertension [facility] (72889) Other diseases of 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 8 - [facility] kidney and ureters renal [facility]210[facility] Other ear and sense Hearing loss Active 02-17-2018 - [place] [facility] organ disorders [facility] (56151) Other nutritional; Morbid obesity Active 05-25-[address] [place] [address] ate endocrine; and [facility] (02309[facility] Residual codes; Awaiting organ transplant Active 08-03-2018 - [facility] unclassified status [facility] (55648) Residual codes; Sleep apnea Active 10-10-2017 - [facility] (87174) Residual codes; Patient awaiting renal Active [facility] unclassified transplant [facility] (15551) Spondylosis; Cervicalgia Active 01-17-2018 [facility] intervertebral disc (72210) disorders; other back problems Unclassified Retention of urine, Active 08-03-2018 - [place] [facility] unspecified [facility] (91010) Unclassified Encounter for other Active 07-03-2018 - [place] [facility] preprocedural examination Un iversity [facility] (97316) Unclassified Encounter for screening for Active 07-03-2018 - [facility] other viral diseases Univers [facility] (34610) Unclassified Pain in right shoulder / Active 01-17-2018 [facility] Healthcare M25.511(ICD-9) (89735) Unclassified Prsnl history of dis of the Active 01-17-2018 [facility] bld/bld-form org/immun (0000 0) mechnsm / Z86.2(ICD-9) Unclassified Other malaise / Active 01-17-2018 [facility] Healthca re R53.81(ICD-9) (86250) Unclassified Radiculopathy, cervical Active 01-17-2018 [facility] region / M54.12(ICD-9) (0000 0) Unclassified Dependence on renal Active 01-17-2018 [facility] / Z99.2(ICD-9) (000 00) Unclassified Cervicalgia / M54.2(ICD-9) Active 01-17-2018 - [facility] Healthcare (65302) Unclassified Personal history of Active 01-17-2018 [facility] pulmonary embolism / (28928) Z86.711(ICD-9) Past or Other Problems Category Problem Name Status Date Location Other aftercare Encounter for Completed 07-03-2018 - [facility] therapeutic drug [facility] monitoring [address] ([address]) Other circulatory Other specified Completed 05-19-2018 - [facility] eneral disease symptoms and signs Medical C enter involving the (98661) circulatory and respiratory systems Other screening for Viral screening Completed 07-03-2018 - [facility] suspected conditions status Univers jay jay's [facility] (not mental disorders [facility] or infectious disease) (4321 0) Substance-related H/O: drug dependency Completed 10-20-2017 - [facility] (14126) Unclassified Pain in right 01-17-2018 - [facility] Healthcare shoulder (53495) Unclassified Other malaise 01-17-2018 - [facility] Healthcare (54436) Unclassified Patient encounter [facility] (60037) Results Result Name Value Range Unit Interpretation Flag Date Location cnco on 2020-05-03 CNCO Letter Text Normal 05-03-2020 [facility] (20465) progress on 2019-11 PROGRESS HNO ID: [id number] Normal 12-06-2019 [facility] Author: Dallas Arreola RN [place] ([id number]) Service: ? Author Type: ? Type: Progress Notes Filed: 12/06/2019 12:52 PM Note Text: In and out of the hospital for numerous things including pne umonia Pt states [facility] is closer to him and his family and he's ready to move forward. New Referral Referring Physician Dr. Melendez Organ Type kidney ESRD Yes. Cause: HTN Dialysis Dependant? Yes Name of Dialysis Facility: [facility] Diabetes No. Smoking Never smoked Current BMI 39.7 Previous Transplant No Organ type: NA Date of Last Transplant NA Transplant Center: NA Currently Listed? No. Facility: [facility] Willing to accept blood transfusion? Yes Potential Living Donor? No Full Transplant Evaluation? Yes Dallas Arreola RN Pre-Kidney AND Pancreas [place] [facility] ct-cta chest w/wo contrast import on 2019-11-08 CT-CTA Chest Images were obtained outside of [facility] Normal 11-08-2019 [facility] W/WO Contrast [id number] [place] (11072) IMPORT cnco on 2019-07-13 CNCO Letter Text Normal 07-13-2019 [facility] (87997) cnpn on 2019-05-21 [facility] Normal 05-21-2019 [place] [facility] ELIA WESTON ([id number]) 1980 [facility] Date Time Provider Department (20179) 05/21/19 SUZETTE FOOTE During your visit today, we recorded the following informati on about you: Taylor Modi, RN, RN 05/21/2019 2:10 PM Signed Patient phones to state the proximal end of his thigh AVF is slightly the size of the tip of a cotton swab. Denies: redness, drain age, warmth to touch, pain, fever/chills. Plan is to access the fistula for the time Friday on 05/26/19. Patient is out of Tylenol that was prescribed post-operative ly. Instructed patient to take OTC Tylenol if any disco mfort. Suggested washing incision site with soap and water daily. Apply scant amount of antibacte rial ointment and wear cotton boxer briefs to protect incision. Patient to call back if he experiences any of the s/s noted above. Heather Garces 05/26/2019 10:20 AM Signed Nurse Krystal from the dialys is center reports that they cultured the open wound and will sent the results when available. She states that he still has no redness, drainage, warmth to touch, pain, fever/chills. If q uestions, call [phone]. Heather Garces Treating Inspector Taylor Modi, RN, RN 05/26/2019 2:19 PM Signed Will await culture results. Allergies As of Date: 05/21/2019 (No Known Allergies) Date Reviewed: 05/11/2019 Reviewed by: Heather Ward) MYKE Patricio - Fully Assessed Reason for Visit: Incision concern [Other] Prescriptions as of 05/21/2019 Sig: ELIQUIS 2.5 MG TABLET Take 1 tablet by mouth twice * VITAMIN B COMPLEX AND VITAMIN* Take 1 capsule by mouth once * AURYXIA 210 MG IRON TABLET Take 3 tablets by mouth three* METOPROLOL TARTRATE 25 MG TAB* Take 1 tablet by mouth twice * SENSIPAR 60 MG TABLET Take 1.5 tablets by mouth onc* Patient taking differently: Take 120 mg by mouth every Mo* Problem List As Of Date 05/21/2019 Noted Resolved ESRD (end stage renal disease) on dialysis [N18*INVALID FOR* More... HTN (hypertension) [I10] INVALID FOR* More... Morbid obesity (HCC) [E66.01] INVALID FOR* Epigastric pain [R10.13] INVALID FOR* Mechanical complication of other vascular devic*INVALID FOR* Right knee pain [M25.561] INVALID FOR* BMI 45.0-49.9, adult ([facility]) [Z68.42] INVALID FOR* More... Tendinitis of left shoulder [M75.82] INVALID FOR* NO SHOW [336799] INVALID FOR* Mass of left thigh [R22.42] INVALID FOR* Thigh pain [M79.659] INVALID FOR* Hematuria [R31.9] INVALID FOR* Dialysis patient ([facility]) [Z99.2] INVALID FOR* More... YEIMY (obstructive sleep apnea) [G47.33] INVALID FOR* More... Abdominal or pelvic swelling, mass, or lump, ri*INVALID FOR* More... Secondary hyperparathyroidism (HCC) [N25.81] INVALID FOR* More... Renal osteodystrophy [N25.0] INVALID FOR* More... Hyperphosphatemia [E83.39] INVALID FOR*04/24/2019 More... Groin pain [R10.30] INVALID FOR* More... Personal history of DVT (deep vein thrombosis) *INVALID FOR* More... Sprain of medial collateral ligament of right k*INVALID FOR* ESRD (end stage renal disease) ([facility]) [N18.6] INVALID FOR* More... Atrial fibrillation ([facility]) [I48.91] INVALID FOR* More... A-V fistula ([facility]) [I77.0] INVALID FOR* More... Anemia of chronic disease [D63.8] INVALID FOR* More... Encounter Status:Closed by TAYLOR MODI on 05/21/19 cnco on 2019-05-17 CNCO Letter Text Normal 05-17-2019 [facility] (86538) progress on 2019-04 PROGRESS HNO ID: [id number] Normal 05-11-2019 [facility] Author: Suzette Foote ([id number]) Service: ? Author Type: Physician Type: Progress Notes Filed: 05/11/2019 12:51 PM Note Text: This office note has been dictated. Liat Bradford MD PROGRESS HNO ID: [id number] Normal 05-11-2019 [facility] Author: Suzette Foote ([id number]) Service: Vascular Surgery Author Type: Physician Type: Progress Notes Filed: 05/14/2019 12:38 PM Note Text: NAME: ELIA WESTON CLINIC NO: [id number] DATE OF SERVICE: 05/11/2019 Elia Weston is seen today. He has a right leg graft. Physical Examination: Strong thrill. Surgical incision is we ll healed. His foot is warm and well perfused. Impression/Plan: The graft was marked for use and cannulation, covered with a Tegaderm. He has been instructed to return in six weeks. Suzette Foote M.D. LK/089 Audio #: [id number] Date Dictated: 05/11/2019 11:28:44 Date Typed: 05/12/2019 13:53:37 Date Revised: kinza on 2019-05-11 CNOV Office Visit (VASSMN) Normal 05-11-[address] [place] [address] [facility] ELIA WESTON ([id number]) 1980 [facility] Date Time Provider Department ([id number]) 05/11/19 10:00 AM SUZETTE FOOTE During your visit today, we recorded the following informati on about you: Temperature Pulse Blood pressure 97.6 degrees 80/minute 128/77 Heather aPtricio LPN, LPN 05/11/2019 12:16 PM Signed Sutures removed from right upper leg per dr foote orders. Incision well approximated, No drainage Liat Bradford MD 05/11/2019 12:51 PM Signed This office note has been dictated. Liat Bradford MD Referring Provider: AVINASH MARTINEZ [[id number]] Allergies As of Date: 05/11/2019 (No Known Allergies) Date Reviewed: 05/11/2019 Reviewed by: Heather (Myke) MYKE Patricio - Fully Assessed Reason for Visit: Post Op [174] Primary Visit Diagnosis:ESRD on hemodialysis ([facility]) [N18.6, Z 99.2] Prescriptions as of 05/11/2019 Sig: ELIQUIS 2.5 MG TABLET Take 1 tablet by mouth twice * VITAMIN B COMPLEX AND VITAMIN* Take 1 capsule by mouth once * AURYXIA 210 MG IRON TABLET Take 3 tablets by mouth three* METOPROLOL TARTRATE 25 MG TAB* Take 1 tablet by mouth twice * SENSIPAR 60 MG TABLET Take 1.5 tablets by mouth onc* Patient taking differently: Take 120 mg by mouth every Mo* Problem List As Of Date 05/11/2019 Noted Resolved ESRD (end stage renal disease) on dialysis [N18*INVALID FOR* More... HTN (hypertension) [I10] INVALID FOR* More... Morbid obesity ([facility]) [E66.01] INVALID FOR* Epigastric pain [R10.13] INVALID FOR* Mechanical complication of other vascular devic*INVALID FOR* Right knee pain [M25.561] INVALID FOR* BMI 45.0-49.9, adult ([facility]) [Z68.42] INVALID FOR* More... Tendinitis of left shoulder [M75.82] INVALID FOR* NO SHOW [723649] INVALID FOR* Mass of left thigh [R22.42] INVALID FOR* Thigh pain [M79.659] INVALID FOR* Hematuria [R31.9] INVALID FOR* Dialysis patient ([facility]) [Z99.2] INVALID FOR* More... YEIMY (obstructive sleep apnea) [G47.33] INVALID FOR* More... Abdominal or pelvic swelling, mass, or lump, ri*INVALID FOR* More... Secondary hyperparathyroidism ([facility]) [N25.81] INVALID FOR* More... Renal osteodystrophy [N25.0] INVALID FOR* More... Hyperphosphatemia [E83.39] INVALID FOR*04/24/2019 More... Groin pain [R10.30] INVALID FOR* More... Personal history of DVT (deep vein thrombosis) *INVALID FOR* More... Sprain of medial collateral ligament of right k*INVALID FOR* ESRD (end stage renal disease) (HCC) [N18.6] INVALID FOR* More... Atrial fibrillation (HCC) [I48.91] INVALID FOR* More... A-V fistula (HCC) [I77.0] INVALID FOR* More... Anemia of chronic disease [D63.8] INVALID FOR* More... Visit Notes: >> Heather ([employer]) MYKE Patricio e May 11, 2019 12:15 PM Statu s: Signed Sutures removed from right upper leg per dr foote orders. Incision well approximated, No drainage Medications Discontinued During This Encounter mupirocin (BACTROBAN) 2% oint 1 * 0 04/13/2019 05/11/2019 Class: Print RX Route: NASAL Sig: Use 0.5 g in the nose twice daily. For 5 days. Disc: Course of therapy completed Encounter Status:Closed by SUZETTE FOOTE MD on 05/11/19 basic metabolic panel on 2019-04-10 Anion gap [Moles/Vol] 14 7-16 mmol/L Normal 04-10-[address] [facility] [address] (84195) Comment: Order Comment: CALL Ash Haq tel. [phone], Chemistry results called to and read back by Dr Niurka Toro RN, 04/06/2019 06:04, by SYDNEY Calcium [Mass/Vol] 8.4 8.6-10.2 mg/dL Low 04-10-2019 [facility] (00 000) Comment: Order Comment: CALL Ash Haq tel. [phone], Chemistry results called to and read back by Dr Niurka Toro RN, 04/06/2019 06:04, by SYDNEY Chloride [Moles/Vol] 96 98-107 mmol/L Low 9 [facility] (00 000) Comment: Order Comment: CALL Ash OQUENDO B tel. [phone], Chemistry results called to and read back by Dr Niurka Toro RN, 04/06/2019 06:04, by SYDNEY CO2 [Moles/Vol] 28 22-29 mmol/L Normal 04-10-2019 [facility] (00 000) Comment: Order Comment: CALL Ash OQUENDO B tel. [phone], Chemistry results called to and read back by Dr Niurka Toro RN, 04/06/2019 06:04, by SYDNEY Creatinine [Mass/Vol] 8.4 0.7-1.2 mg/dL Critically high [facility] (00 000) Comment: Order Comment: CALL Ash OQUENDO B tel. [phone], Chemistry results called to and read back by Dr Niurka Toro RN, 04/06/2019 06:04, by SYDNEY GFR/1.73 sq M predicted 9 mL/min/{1.73_m2} Normal 04-10-2019 [place] [facility] [place] [facility] (S/P/d) [Vol (0000 0) rate/Area] Comment: Order Comment: CALL Ash OQUENDO B tel. [phone], Chemistry results called to and read back by Dr Niurka Toro RN, 04/06/2019 06:04, by SYDNEY GFR/1.73 sq M predicted 9 >=60 mL/min/1.73 Normal 03-29 [place] among non-blacks [facility] (S/P/Bld) [Vol rate/Area] (24709) Comment: Order Comment: CALL Ash OQUENDO B tel. [phone], Chemistry results called to and read back by Dr Niurka Toro RN, 04/06/2019 06:04, by SYDNEY Result Comment: Chronic Kidn ey Disease: less than 60 ml/min/1.73 sq.m. Kidney Failure: less than 15 ml/min/1.73 sq.m. Results valid for patients 1 8 years and older. Glucose [Mass/Vol] 84 74-99 mg/dL Normal 04-10-2019 [facility] (00 000) Comment: Order Comment: CALL Ash OQUENDO B tel. [phone], Chemistry results called to and read back by Dr Niurka Toro RN, 04/06/2019 06:04, by SYDNEY Potassium [Moles/Vol] 4.5 3.5-5.0 mmol/L Normal 04-10-20 19 [facility] (42774) Comment: Order Comment: CALL Ash OQUENDO B tel. [phone], Chemistry results called to and read back by Dr Niurka Toro RN, 04/06/2019 06:04, by SYDNEY Sodium [Moles/Vol] 138 132-146 mmol/L Normal 04-10-2019 [facility] (98111) Comment: Order Comment: CALL Ash OQUENDO B tel. [phone], Chemistry results called to and read back by Dr Niurka Toro RN, 04/06/2019 06:04, by SYDNEY Urea nitrogen [Mass/Vol] 23 6-20 mg/dL High 04-10 [facility] (25804) Comment: Order Comment: CALL Ash OQUENDO B tel. [phone], Chemistry results called to and read back by Dr Niurka Toro RN, 04/06/2019 06:04, by SYDNEY basic metabolic panel on 2019-04-09 Anion gap [Moles/Vol] 14 7-16 mmol/L Normal 04-09-20 19 [facility] (88411) Comment: Order Comment: CALL Ash OQUENDO B tel. [phone], Chemistry results called to and read back by Dr Niurka Toro RN, 04/06/2019 06:04, by SYDNEY Calcium [Mass/Vol] 8.2 8.6-10.2 mg/dL Low 04-09-2019 [facility] (00 000) Comment: Order Comment: CALL Ash OQUENDO B tel. [phone], Chemistry results called to and read back by Dr Niurka Toro RN, 04/06/2019 06:04, by SYDNEY Chloride [Moles/Vol] 97 98-107 mmol/L Low 9 [facility] (00 000) Comment: Order Comment: CALL Ash OQUENDO B tel. [phone], Chemistry results called to and read back by Dr Niurka Toro RN, 04/06/2019 06:04, by SYDNEY CO2 [Moles/Vol] 26 22-29 mmol/L Normal 04-09-2019 [place] [facility] (00 000) Comment: Order Comment: CALL Aleman [facility] B tel. [phone], Chemistry results called to and read back by Dr Niurka Toro RN, 04/06/2019 06:04, by SYDNEY Creatinine [Mass/Vol] 9.9 0.7-1.2 mg/dL Critically high [facility] (00 000) Comment: Order Comment: CALL Aleman [facility] B tel. [phone], Chemistry results called to and read back by Dr Niurka Toro RN, 04/06/2019 06:04, by SYDNEY GFR/1.73 sq M predicted 7 mL/min/{1.73_m2} Normal 04-09-2019 [place] [facility] [place] [facility] (S/P/d) [Vol (0000 0) rate/Area] Comment: Order Comment: CALL Aleman [facility] B tel. [phone], Chemistry results called to and read back by Dr Niurka Toro RN, 04/06/2019 06:04, by SYDNEY GFR/1.73 sq M predicted 7 >=60 mL/min/1.73 Normal 03-29 [place] among non-blacks [facility] (S/P/Bld) [Vol rate/Area] (85070) Comment: Order Comment: CALL Ash OQUENDO B tel. [phone], Chemistry results called to and read back by Dr Niurka Toro RN, 04/06/2019 06:04, by SYDNEY Result Comment: Chronic Kidn ey Disease: less than 60 ml/min/1.73 sq.m. Kidney Failure: less than 15 ml/min/1.73 sq.m. Results valid for patients 1 8 years and older. Glucose [Mass/Vol] 85 74-99 mg/dL Normal 04-09-2019 [facility] (00 000) Comment: Order Comment: CALL Ash OQUENDO B tel. [phone], Chemistry results called to and read back by Dr Niurka Toro RN, 04/06/2019 06:04, by SYDNEY Potassium [Moles/Vol] 5.1 3.5-5.0 mmol/L High 04-09-20 [facility] (44299) Comment: Order Comment: CALL Ash OQUENDO B tel. [phone], Chemistry results called to and read back by Dr Niurka Toro RN, 04/06/2019 06:04, by SYDNEY Sodium [Moles/Vol] 137 132-146 mmol/L Normal 04-09-2019 [facility] (54439) Comment: Order Comment: CALL Aleman B tel. [phone], Chemistry results called to and read back by Dr Niurka Toro RN, 04/06/2019 06:04, by SYDNEY Urea nitrogen [Mass/Vol] 31 6-20 mg/dL High 04-09 [facility] (33730) Comment: Order Comment: CALL Ash OQUENDO B tel. [phone], Chemistry results called to and read back by Dr Niurka Toro RN, 04/06/2019 06:04, by SYDNEY sedimentation rate on 2019-04-08 Sedimentation Rate 114 0-15 mm/Hr High 04-08-2019 [facility] (00 000) procalcitonin on 16-04-11 Procalcitonin 1.76 0.00-0.08 ng/mL High 04-08-2019 [facility] (00 000) magnesium on 04-08 Magnesium [Mass/Vol] 2.2 1.6-2.6 mg/dL Normal 9 [facility] (81847) cbc with platelet and differential on 2019-04-08 Abs Imm Granulocytes 0.05 E9/L Normal 9 [facility] (00 000) Basophils (Bld) [#/Vol] 0.03 0.00-0.20 E9/L Normal 2018 [facility] ( 000) Basophils/100 WBC (Bld) 0.5 0.0-2.0 % Normal 2018 [facility] ( 000) Eosinophils (Bld) [#/Vol] 0.24 0.05-0.50 E9/L Normal 03-29 [facility] ( 000) Eosinophils/100 WBC (Bld) 4.3 0.0-6.0 % Normal 03-29 [facility] ( 000) Erythrocyte distribution 15.2 11.5-15.0 fL High 04-08 [place] width (RBC) [Ratio] [facility] ( 000) Hematocrit (Bld) [Volume 30.7 37.0-54.0 % Low 04-08 [place] fraction] [facility] ( 000) Hemoglobin (Bld) 9.2 12.5-16.5 g/dL Low 04-08-2019 [facility] [Mass/Vol] [facility] ( 000) Imm Granulocytes 0.9 0.0-5.0 % Normal 04-08-2019 [facility] ( 000) Lymphocytes (Bld) [#/Vol] 0.76 1.50-4.00 E9/L Low 03-29 [facility] ( 000) Lymphocytes/100 WBC (Bld) 13.5 20.0-42.0 % Low 03-29 [facility] ( 000) MCH (RBC) [Entitic mass] 28.7 26.0-35.0 pg Normal 04-08 [facility] (00 000) MCHC (RBC) [Mass/Vol] 30.0 32.0-34.5 % Low 04-08-20 19 [facility] (00 000) MCV (RBC) [Entitic vol] 95.6 80.0-99.9 fL Normal 2018 [facility] (00 000) Monocytes (Bld) [#/Vol] 0.89 0.10-0.95 E9/L Normal 2018 [facility] (00 000) Monocytes/100 WBC (Bld) 15.8 2.0-12.0 % High 2018 [facility] (00 000) Neutrophils (Bld) [#/Vol] 3.66 1.80-7.30 E9/L Normal 03-29 [facility] (00 000) Neutrophils/100 WBC (Bld) 65.0 43.0-80.0 % Normal 03-29 [facility] (00 000) Platelet mean volume 11.2 7.0-12.0 fL Normal 9 [place] (Bld) [Entitic vol] [facility] (00 000) Platelets (Bld) [#/Vol] 187 130-450 E9/L Normal 2018 [facility] (00 000) RBC (Bld) [#/Vol] 3.21 3.80-5.80 E12/L Low 04-08-2019 [facility] (00 000) WBC (Bld) [#/Vol] 5.6 4.5-11.5 E9/L Normal 04-08-2019 S [facility] (00 000) c-reactive protein on 2019-04-08 CRP [Mass/Vol] 20.4 0.0-0.4 mg/dL High 04-08-2019 [facility] (00 000) basic metabolic panel on 2019-04-08 Anion gap [Moles/Vol] 15 7-16 mmol/L Normal 04-08-20 19 [facility] [address] ([id number]) Comment: Order Comment: CALL [place] H4S B tel. ,Chemistry results called to and read back by RACHEL Singleton, :17, by CHRCR Calcium [Mass/Vol] 8.3 8.6-10.2 mg/dL Low 04-08-2019 [facility] (00 000) Comment: Order Comment: CALL [place] H4S B tel. ,Chemistry results called to and read back by RACHEL Singleton, :17, by CHRCR Chloride [Moles/Vol] 93 98-107 mmol/L Low 9 [facility] (00 000) Comment: Order Comment: CALL [place] H4S B tel. ,Chemistry results called to and read back by RACHEL Singleton, :17, by CHRCR CO2 [Moles/Vol] 25 22-29 mmol/L Normal 04-08-2019 [facility] (00 000) Comment: Order Comment: CALL Aleman H4S B tel. ,Chemistry results called to and read back by RACHEL Singleton, :17, by CHRCR Creatinine [Mass/Vol] 9.9 0.7-1.2 mg/dL Critically high [facility] (00 000) Comment: Order Comment: CALL [place] H4S B tel. ,Chemistry results called to and read back by RACHEL Singleton, :17, by CHRCR GFR/1.73 sq M predicted 7 mL/min/{1.73_m2} Normal 04-08-2019 [place] among blacks [facility] (S/P/Bld) [Vol (0000 0) rate/Area] Comment: Order Comment: CALL Aleman H4S B tel. ,Chemistry results called to and read back by RACHEL Singleton, :17, by CHRCR GFR/1.73 sq M predicted 7 >=60 mL/min/1.73 Normal 03-29 [place] among non-blacks [facility] (S/P/Bld) [Vol rate/Area] ([id number]) Comment: Order Comment: CALL [place] H4S B tel. ,Chemistry results called to and read back by RACHEL Singleton, 07/201907:17, by CHRCR Result Comment: Chronic Kidn ey Disease: less than 60 ml/min/1.73 sq.m. Kidney Failure: less than 15 ml/min/1.73 sq.m. Results valid for patients 1 8 years and older. Glucose [Mass/Vol] 87 74-99 mg/dL Normal 04-08-2019 [facility] (00 000) Comment: Order Comment: CALL [place] H4S B tel. ,Chemistry results called to and read back by RACHEL Singleton, 07/201907:17, by CHRCR Potassium [Moles/Vol] 4.7 3.5-5.0 mmol/L Normal 04-08-20 [address] [facility] [address] ([id number]) Comment: Order Comment: CALL [place] 44720S B tel. ,Chemistry results called to and read back by RACHEL Singleton, 07/201907:17, by CHRCR Sodium [Moles/Vol] 133 132-146 mmol/L Normal 04-08-2019 [facility] [address] ([address]) Comment: Order Comment: CALL [place] H4S B tel. ,Chemistry results called to and read back by RACHEL Singleton, 07/201907:17, by CHRCR Urea nitrogen [Mass/Vol] 28 6-20 mg/dL High 04-08 [facility] [address] ([id number]) Comment: Order Comment: CALL [place] H4S B tel. ,Chemistry results called to and read back by RACHEL Singleton, 07/201907:17, by CHRCR sedimentation rate on 2019-04-07 Sedimentation Rate 109 0-15 mm/Hr High 04-07-2019 [facility] (00 000) phosphorus on 04-07 Phosphate [Mass/Vol] 7.4 2.5-4.5 mg/dL High 9 [facility] [address] ([address]) magnesium on 04-07 Magnesium [Mass/Vol] 2.1 1.6-2.6 mg/dL Normal 9 [facility] (83400) Comment: Order Comment: CALL Aleman H6S B tel. ,Chemistry results called to and read back by RACHEL Springer, 03/2908:26, by [facility] Magnesium [Mass/Vol] 2.2 1.6-2.6 mg/dL Normal 9 [facility] (95095) hepatitis b surface ab on 2019-04-07 Hepatitis B Surface Ab REACTIVE NON REACT Normal 019 [facility] ([id number]) hepatitis acute panel on 2019-04-07 Hepatitis A Ab (IgM) Non-Reactive NON REACT Normal 2018 [facility] (00 000) Hepatitis B Core Ab Non-Reactive NON REACT Normal 019 [place] IgM [facility] (00 000) Hepatitis B Surface Non-Reactive NON REACT Normal 019 [place] Ag [facility] (00 000) Hepatitis C Antibody Non-Reactive NON REACT Normal 2018 [facility] (00 000) cta pulmonary w contrast on 2019-04-07 CTA PULMONARY W Patient Normal [place] CONTRAST : 1980 [facility] Age: 39 years Center ([id number]) Gender: Male Order Date: 04/06/2019 4:45 AM Exam: CTA PULMONARY W CONTRAST Number of Images: 1019 views Indication: sob Comparison: None. Technique: CT of the thorax with contrast with CTA of the pu lmonary arteries was obtained. The study was obtained from the thora cic inlet to the base of the diaphragm. Radiation Output: CTDIvol 47 (mGy); DLP 1978.83 (mGy-cm) Findings: The lungs demonstrate diffuse dense bilateral raiza hilar infiltrate.. There is associated air bronchogram. Both lungs have symmetrical finding. There is no pleural effusion seen. The CT of the pulmonary arteries and the thoracic aorta and the great vessel is a very limited examination due to large amount of varices seen throughout the subcutaneous region and is not enough co ntrast to make a diagnostic study in the pulmonary vasculature... The chest wall appears to be normal. There is no axillary lymphadenopathy identified. The visualized portion of the upper abdomen appears to be no rmal. There is diffuse bilateral subcutaneous varices seen through out the anterior and posterior torso. IMPRESSION: 1. Nondiagnostic study for pulmonary embolus due to prominen ce of subcutaneous varices seen throughout the body. 2. Diffuse dense infiltrates seen in both lungs in the perih ilar region.. Interpreted by: Jose Nichole MD Signed by: Jose Nichole MD 04/06/19 Final result cbc with platelet no differential on 2019-04-07 Erythrocyte distribution 15.3 11.5-15.0 fL High 04-07 [facility] width (RBC) [Ratio] [facility] ( 000) Hematocrit (Bld) [Volume 30.4 37.0-54.0 % Low 04-07 [facility] fraction] [facility] ( 000) Hemoglobin (Bld) 9.4 12.5-16.5 g/dL Low 04-07-2019 [facility] ( 000) MCH (RBC) [Entitic mass] 29.2 26.0-35.0 pg Normal 04-07 [facility] ( 000) MCHC (RBC) [Mass/Vol] 30.9 32.0-34.5 % Low 04-07-20 19 [facility] ( 000) MCV (RBC) [Entitic vol] 94.4 80.0-99.9 fL Normal 2018 [facility] ( 000) Platelet mean volume 10.6 7.0-12.0 fL [facility] ( 000) Platelets (Bld) [#/Vol] 205 130-450 E9/L Normal 2018 [facility] ( 000) RBC (Bld) [#/Vol] 3.22 3.80-5.80 E12/L Low 04-07-2019 [facility] ( 000) WBC (Bld) [#/Vol] 6.8 4.5-11.5 E9/L Normal 04-07-2019 [facility] (00 000) cbc with platelet and differential on 2019-04-07 Abs Imm Granulocytes 0.03 E9/L Normal 9 [facility] ( 000) Basophils (Bld) [#/Vol] 0.04 0.00-0.20 E9/L Normal 2018 [facility] ( 000) Basophils/100 WBC (Bld) 0.6 0.0-2.0 % Normal 2018 [facility] ( 000) Eosinophils (Bld) [#/Vol] 0.19 0.05-0.50 E9/L Normal 03-29 [facility] ( 000) Eosinophils/100 WBC (Bld) 3.0 0.0-6.0 % Normal 03-29 [facility] ( 000) Erythrocyte distribution 15.4 11.5-15.0 fL High 04-07 [place] width (RBC) [Ratio] [facility] ( 000) Hematocrit (Bld) [Volume 29.7 37.0-54.0 % Low 04-07 [place] fraction] [facility] (00 000) Hemoglobin (Bld) 9.1 12.5-16.5 g/dL Low 04-07-2019 [facility] [Mass/Vol] [facility] ( 000) Imm Granulocytes 0.5 0.0-5.0 % Normal 04-07-2019 [facility] (00 000) Lymphocytes (Bld) [#/Vol] 0.63 1.50-4.00 E9/L Low 03-29 [facility] (00 000) Lymphocytes/100 WBC (Bld) 9.9 20.0-42.0 % Low 03-29 [facility] (00 000) MCH (RBC) [Entitic mass] 29.1 26.0-35.0 pg Normal 04-07 [facility] ( 000) MCHC (RBC) [Mass/Vol] 30.6 32.0-34.5 % Low 04-07-20 19 [facility] (00 000) MCV (RBC) [Entitic vol] 94.9 80.0-99.9 fL Normal 2018 [facility] ( 000) Monocytes (Bld) [#/Vol] 0.96 0.10-0.95 E9/L High 2018 [facility] ( 000) Monocytes/100 WBC (Bld) 15.1 2.0-12.0 % High 2018 [facility] (00 000) Neutrophils (Bld) [#/Vol] 4.50 1.80-7.30 E9/L Normal 03-29 [facility] ( 000) Neutrophils/100 WBC (Bld) 70.9 43.0-80.0 % Normal 03-29 [facility] ( 000) Platelet mean volume 11.1 7.0-12.0 fL Normal 9 [place] (Bld) [Entitic vol] [facility] (00 000) Platelets (Bld) [#/Vol] 200 130-450 E9/L Normal 2018 [facility] (00 000) RBC (Bld) [#/Vol] 3.13 3.80-5.80 E12/L Low [facility]-07-2019 [facility] WBC (Bld) [#/Vol] 6.4 4.5-11.5 E9/L Normal 04-07-2019 S nt [facility] (00 ) c-reactive protein on 2019-04-07 CRP [Mass/Vol] 29.0 0.0-0.4 mg/dL High 04-07-2019 [facility] (00 ) basic metabolic panel on 2019-04-07 Anion gap [Moles/Vol] 17 7-16 mmol/L High 04-07-20 19 [facility] (00 ) Comment: Order Comment: CALL [place] H6S B tel. ,Chemistry results called to and read back by RACHEL Springer, 03/29:26, by CHRCR Calcium [Mass/Vol] 8.3 8.6-10.2 mg/dL Low 04-07-2019 [facility] (00 000) Comment: Order Comment: CALL [place] H6S B tel. ,Chemistry results called to and read back by RACHEL Springer, 03/29:26, by CHRCR Chloride [Moles/Vol] 95 98-107 mmol/L Low 9 [facility] (00 ) Comment: Order Comment: CALL [place] H6S B tel. ,Chemistry results called to and read back by RACHEL Springer, 03/29:26, by CHRCR CO2 [Moles/Vol] 26 22-29 mmol/L Normal 04-07-2019 [facility] (00 ) Comment: Order Comment: CALL [place] H6S B tel. ,Chemistry results called to and read back by RACHEL Springer, 03/29:26, by CHRCR Creatinine 13.0 0.7-1.2 mg/dL Critically high 04-07-2019 [facility] [Mass/Vol] [facility] () Comment: Order Comment: CALL [place] H6S B tel. ,Chemistry results called to and read back by RACHEL Springer, 03/29:26, by CHRCR GFR/1.73 sq M predicted 5 mL/min/{1.73_m2} Normal 04-07-2019 [place] among blacks MDRD [facility] (S/P/Bld) [Vol (0000 0) rate/Area] Comment: Order Comment: CALL [place] H6S B tel. ,Chemistry results called to and read back by RACHEL Springer, 03/29:26, by CHRCR GFR/1.73 sq M predicted 5 >=60 mL/min/1.73 Normal 03-29 [place] among non-blacks MDRD [facility] (S/P/Bld) [Vol rate/Area] ([id number]) Comment: Order Comment: CALL [place] H6S B tel. ,Chemistry results called to and read back by RACHEL Springer, 03/29:26, by CHRCR Result Comment: Chronic Kidn ey Disease: less than 60 ml/min/1.73 sq.m. Kidney Failure: less than 15 ml/min/1.73 sq.m. Results valid for patients 1 8 years and older. Glucose [Mass/Vol] 103 74-99 mg/dL High 04-07-2019 [facility] (00 000) Comment: Order Comment: CALL [place] H6S B tel. ,Chemistry results called to and read back by RACHEL Springer, 03/29:26, by CHRCR Potassium [Moles/Vol] 5.6 3.5-5.0 mmol/L High 04-07-20 19 [facility] [address] ([address]) Comment: Order Comment: CALL [place] H6S B tel. ,Chemistry results called to and read back by RACHEL Springer, 03/29:26, by CHRCR Sodium [Moles/Vol] 138 132-146 mmol/L Normal 04-07-2019 [facility] [address] (25954) Comment: Order Comment: CALL [place] H6S B tel. ,Chemistry results called to and read back by RACHEL Springer, 03/29:26, by CHRCR Urea nitrogen [Mass/Vol] 46 6-20 mg/dL High 04-07 [facility] (820[address]) Comment: Order Comment: CALL [place] H6S B tel. ,Chemistry results called to and read back by RACHEL Springer, 03/29:26, by CHRCR Anion gap [Moles/Vol] 18 7-16 mmol/L High 04-07-20 19 [facility] (00 000) Comment: Order Comment: CALL [place] H6S B tel. , Chemistry results called to and read back by Jeanette Corley RN, 04/07/2019 06:14, by DAVMA Calcium [Mass/Vol] 8.1 8.6-10.2 mg/dL Low 04-07-2019 [facility] (00 000) Comment: Order Comment: CALL [place] H6S B tel. , Chemistry results called to and read back by Jeanette Corley RN, 04/07/2019 06:14, by DAVMA Chloride [Moles/Vol] 91 98-107 mmol/L Low 9 [facility] (00 000) Comment: Order Comment: CALL [place] H6S B tel. , Chemistry results called to and read back by Jeanette Corley RN, 04/07/2019 06:14, by DAVMA CO2 [Moles/Vol] 24 22-29 mmol/L Normal 04-07-2019 [facility] (00 000) Comment: Order Comment: CALL [place] H6S B tel. , Chemistry results called to and read back by Jeanette Corley RN, 04/07/2019 06:14, by DAVMA Creatinine 13.0 0.7-1.2 mg/dL Critically high 04-07-2019 [facility] [Mass/Vol] [facility] (00 000) Comment: Order Comment: CALL [place] H6S B tel. , Chemistry results called to and read back by Jeanette Corley RN, 04/07/2019 06:14, by DAVMA GFR/1.73 sq M predicted 5 mL/min/{1.73_m2} Normal 04-07-2019 [place] among blacks MDRD [facility] (S/P/Bld) [Vol (0000 0) rate/Area] Comment: Order Comment: CALL [place] H6S B tel. , Chemistry results called to and read back by Jeanette Corley RN, 04/07/2019 06:14, by DAVMA GFR/1.73 sq M predicted 5 >=60 mL/min/1.73 Normal 03-29 [place] among non-blacks MDRD [facility] (S/P/Bld) [Vol rate/Area] ([id number]) Comment: Order Comment: CALL [place] H6S B tel. , Chemistry results called to and read back by Jeanette Corley RN, 04/07/2019 06:14, by ROSEANNE Result Comment: Chronic Kidn ey Disease: less than 60 ml/min/1.73 sq.m. Kidney Failure: less than 15 ml/min/1.73 sq.m. Results valid for patients 1 8 years and older. Glucose [Mass/Vol] 99 74-99 mg/dL Normal 04-07-2019 [facility] (00 000) Comment: Order Comment: CALL [place] H6S B tel. , Chemistry results called to and read back by Jeanette Corley RN, 04/07/2019 06:14, by ROSEANNE Potassium [Moles/Vol] 5.4 3.5-5.0 mmol/L High 04-07-20 19 [facility] ([address]) Comment: Order Comment: CALL [place] H6S B tel. , Chemistry results called to and read back by Jeanette Corley RN, 04/07/2019 06:14, by ROSEANNE Sodium [Moles/Vol] 133 132-146 mmol/L Normal 04-07-2019 [facility] (76080) Comment: Order Comment: CALL [place] H6S B tel. , Chemistry results called to and read back by Jeanette Corley RN, 04/07/2019 06:14, by ROSEANNE Urea nitrogen [Mass/Vol] 49 6-20 mg/dL High 04-07 [facility] ([id number]) Comment: Order Comment: CALL [place] H6S B tel. , Chemistry results called to and read back by Jeanette Corley RN, 04/07/2019 06:14, by ROSEANNE xr chest portable o n 2019-04-06 XR CHEST PORTABLE Patient Normal 04-06-2019 [place] : 1980 [facility] Age: 39 years Center ([id number]) Gender: Male Order Date: 04/06/2019 4:30 AM Exam: XR CHEST PORTABLE Number of Views: 1 Indication: Shortness of breath Comparison: None Findings: There is a enlarged cardiomediastinal silhouette w ithout the benefit of comparison studies with mixed bilateral airspace and interstitial lung disease noted. No pneumothorax. IMPRESSION: ALERT: THIS IS AN ABNORMAL REPORT 1. Enlarged cardiomediastinal silhouette, the possibility of underlying pericardial effusion or other cardiac abnormaliti es are not excluded on the basis of this exam, clinical correlation rec ommended.. 2. Mixed airspace and interstitial lung disease bilaterally, findings could be reflective of combination of infiltrate/pneumonia a nd pulmonary edema or reflect a acute respiratory distress synd sam. 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 He has renal failure and on dialysis. Sym ptoms started sometime this evening. He is dialysis with last one last Friday. No fevers and no vomiting BP 121/85 Pulse (!) 135 Temp 37.7 C (99.9 F) Resp 25 Wt (!) 140.6 kg SpO2 95% Comment: 15 L NRB severe distress 39 yo mal with hx of renal f ailure and on dialysis drove to the front of the ED In respiratory distress and chest pain. Patient could not get out of the car and we had to go get him out of the car. Chest with rales. S1 and S2 normal but tachycardic. No gallop. Patient Patient brought the back. CRM + pulse ox done Low pulse Ox of low 80's: given NRB 100% IV placed 911 called and [facility] here to transfer patient EKG was done - no ST elevation. Talked to [facility] Dr. Mckenzie and she accepted patient . After a medical screening ex am was performed it was determined the [facility] of the medical condition for which they are seeking care. Final diagnoses: [R07.9] Chest pain, unspecified type [R06.02] Shortness of breath Terrell Rosales MD cbc with platelet and differential on 2019-04-06 Abs Imm Granulocytes 0.04 E9/L Normal [facility] ( 000) Basophils (Bld) [#/Vol] 0.03 0.00-0.20 E9/L Normal 2018 [facility] ( 000) Basophils/100 WBC (Bld) 0.3 0.0-2.0 % Normal 2018 [facility] ( 000) Eosinophils (Bld) [#/Vol] 0.07 0.05-0.50 E9/L Normal [facility] (00 000) Eosinophils/100 WBC (Bld) 0.7 0.0-6.0 % Normal [facility] (00 000) Erythrocyte distribution 15.3 11.5-15.0 fL High 04-06 [place] width (RBC) [Ratio] [facility] ( 000) Hematocrit (Bld) [Volume 33.7 37.0-54.0 % Low 04-06 [place] fraction] [facility] (00 000) Hemoglobin (Bld) 10.2 12.5-16.5 g/dL Low 04-06-2019 [facility] [Mass/Vol] [facility] (00 000) Imm Granulocytes 0.4 0.0-5.0 % Normal 04-06-2019 [facility] (00 000) Lymphocytes (Bld) [#/Vol] 0.45 1.50-4.00 E9/L Low [facility] ( 000) Lymphocytes/100 WBC (Bld) 4.6 20.0-42.0 % Low [facility] ( 000) MCH (RBC) [Entitic mass] 28.8 26.0-35.0 pg Normal 04-06 [facility] ( 000) MCHC (RBC) [Mass/Vol] 30.3 32.0-34.5 % Low 04-06-20 19 [facility] ( 000) MCV (RBC) [Entitic vol] 95.2 80.0-99.9 fL Normal 2018 [facility] ( 000) Monocytes (Bld) [#/Vol] 1.06 0.10-0.95 E9/L High 2018 [facility] ( 000) Monocytes/100 WBC (Bld) 10.8 2.0-12.0 % Normal 2018 [facility] ( 000) Neutrophils (Bld) [#/Vol] 8.14 1.80-7.30 E9/L High [facility] ( 000) Neutrophils/100 WBC (Bld) 83.2 43.0-80.0 % High [facility] ( 000) Platelet mean volume 11.0 7.0-12.0 fL Normal 9 [place] (Bld) [Entitic vol] [facility] ( 000) Platelets (Bld) [#/Vol] 228 130-450 E9/L Normal 2018 [facility] ( 000) RBC (Bld) [#/Vol] 3.54 3.80-5.80 E12/L Low 04-06-2019 [facility] ( 000) WBC (Bld) [#/Vol] 9.8 4.5-11.5 E9/L Normal 04-06-2019 S [facility] (00 000) basic metabolic panel reflex mg on 2019-04-06 Anion gap [Moles/Vol] 19 7-16 mmol/L High 04-06-20 19 [facility] (00 000) Comment: Order Comment: CALL [place] HER B tel. [phone], Chemistry results called to and read back by Dr Niurka Toro RN, 04/06/2019 06:04, by SYDNEY Calcium [Mass/Vol] 7.9 8.6-10.2 mg/dL Low 04-06-2019 [facility] (00 000) Comment: Order Comment: CALL Ash OQUENDO B tel. [phone], Chemistry results called to and read back by Dr Niurka Toro RN, 04/06/2019 06:04, by SYDNEY Chloride [Moles/Vol] 96 98-107 mmol/L Low 9 [facility] (00 000) Comment: Order Comment: CALL Ash OQUENDO B tel. [phone], Chemistry results called to and read back by Dr Niurka Toro RN, 04/06/2019 06:04, by SYDNEY CO2 [Moles/Vol] 24 22-29 mmol/L Normal 04-06-2019 [facility] (00 000) Comment: Order Comment: CALL Ash OQUENDO B tel. [phone], Chemistry results called to and read back by Dr Niurka Toro RN, 04/06/2019 06:04, by SYDNEY Creatinine 17.4 0.7-1.2 mg/dL Critically high 04-06-2019 [facility] [Mass/Vol] [facility] (00 000) Comment: Order Comment: CALL Ash OQUENDO B tel. [phone], Chemistry results called to and read back by Dr Niurka Toro RN, 04/06/2019 06:04, by SYDNEY GFR/1.73 sq M predicted 4 mL/min/{1.73_m2} Normal 04-06-2019 [place] among blacks MDRD [facility] (S/P/Bld) [Vol (0000 0) rate/Area] Comment: Order Comment: CALL Ash OQUENDO B tel. [phone], Chemistry results called to and read back by Dr Niurka Toro RN, 04/06/2019 06:04, by SYDNEY GFR/1.73 sq M predicted 4 >=60 mL/min/1.73 Normal [place] among non-blacks MDRD [facility] (S/P/Bld) [Vol rate/Area] ([id number]) Comment: Order Comment: CALL Ash OQUENDO B tel. [phone], Chemistry results called to and read back by Dr Niurka Toro RN, 04/06/2019 06:04, by SYDNEY Result Comment: Chronic Kidn ey Disease: less than 60 ml/min/1.73 sq.m. Kidney Failure: less than 15 ml/min/1.73 sq.m. Results valid for patients 1 8 years and older. Glucose [Mass/Vol] 101 74-99 mg/dL High 04-06-2019 [facility] (00 000) Comment: Order Comment: CALL Ash OQUENDO B tel. [phone], Chemistry results called to and read back by Dr Niurka Toro RN, 04/06/2019 06:04, by SYDNEY Potassium reflex Mg 7.4 3.5-5.0 mmol/L Critically high [facility] (00 000) Comment: Order Comment: CALL Ash OQUENDO B tel. [phone], Chemistry results called to and read back by Dr Niurka Toro RN, 04/06/2019 06:04, by SYDNEY Sodium [Moles/Vol] 139 132-146 mmol/L Normal 04-06-2019 [facility] [address] ([id number]) Comment: Order Comment: CALL Aleman B tel. [phone], Chemistry results called to and read back by Dr Niurka Toro RN, 04/06/2019 06:04, by SYDNEY Urea nitrogen [Mass/Vol] 79 6-20 mg/dL High 04-[address] [facility] [address] ([id number]) Comment: Order Comment: CALL Ash OQUENDO B tel. [phone], Chemistry results called to and read back by Dr Niurka Toro RN, 04/06/2019 06:04, by SYDNEY bro special angiography procedure on 2019-03-26 XA Special Patient Name: ELIA WESTON [facility] Angiography Procedure System ([id number]) Special Procedures Exam Date/Time 03/26/2019 14:13:16 EDT Exam XA Special Angiography Procedure Ordering Physician MD RAN, KEYLA TREVIÑO Accession Number [id number] Reason For Exam tunneled dialysis catheter exchange ESRD dysfunctional emelyn ter Report FLUOROSCOPIC AND ULTRASOUND-GUIDED TUNNELED DIALYSIS CATHETE R PLACEMENT. 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 A ll of the patient's questions were answered and the patient signed informed cons ent. The patient was brought into the interventional radiology suite and plac ed supine on the table. An audible timeout was performed. The patient's left groin and left anterior thigh including t he existing tunnel hemodialysis catheter were prepped and draped in the usual sterile fashion. Maximal sterile barrier technique was utilized. All elements of maximal sterile barrier technique including a mask, hat, sterile gown, steri le gloves, and large sterile sheet were utilized. Betadine antiseptic was utilize d for skin sterilization. Sterile ultrasound gel and a sterile ultrasou nd probe cover were also used. The subcutaneous tissues were anesthetized using 1 % lidocai ne. Digital subtraction angiography runs through the catheter were perfo rmed to assess for the presence of a fibrin sheath. There is no fibrin sheath, however, there was nonocclusive thrombus in the inferior vena cava. A 0.035 inc h stiff Glidewire was advanced through the existing catheter until the tip o f the wire was in the central inferior vena cava. The existing catheter was dissec vera free from the subcutaneous cutaneous tissues using blunt dissection. Follo wing this, the existing catheter was exchanged for a new hemodialysis cat heter with Dacron cuff. The new catheter was advanced into position to avoid the nonocclusive inferior vena cava thrombus. Postplacement imaging showed pr oper positioning of the tunneled dialysis catheter with the tip terminating in t he inferior vena cava cranial to the level of the renal veins. Both lumens of the catheter flushed and aspirated appropriately. The catheter was then s utured to the patient's skin using 2-0 silk suture. The catheter exit site was covered with a sterile dressing. The patient tolerated the procedure well a nd suffered no immediate complication. The patient was transferred to the recovery area in stable condition. IMPRESSION: 1. Successful uncomplicated fluoroscopic guided exchange of a tunneled hemodialysis catheter. The catheter is ready for use. There is nonocclusive thrombus seen within the inferior vena cava along the course of the previous tunneled hemodialysis catheter. The patient remains on Elliq uis anticoagulation for prior episodes of pulmonary embolus and is therefore jaylon ng treated for this nonocclusive thrombus. Report Dictated on Final Dictating Physician: MD CHÁVEZ GEORGE RICHARD Signed Date and Time: 03/26/2019 2:09 pm Signed by: MD CHÁVEZ GEORGE RICHARD Transcribed Date and Time: 03/26/2019 2:13 prothrombin time on 2019-03-26 INR Coag (PPP) [Relative 1.1 0.9-1.1 Normal 03-26 [facility] time] ([id number]) Comment: Result Comment: Recommended Anticoagulant Therapy: SEE BELOW ----- INR of 2.0 - 3.0 : - Prophylaxis of Venous Thro mbosis (high-risk surgery) - Treatment of Venous Thromb osis - Treatment of Pulmonary Emb olism (Includes tissue heart valves, Acute Myocardial Inf arction to prevent systemic embolism, Valvular Heart Dis ease, and Atrial Fibrillation) ----- INR of 2.5 - 3.5 : - Mechanical Prosthetic Valv es (high risk) - If oral 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 ther apy is used to prevent Myocardial Infarction Performed By: #### HEMDF, BM P3, BNP3, TROPN, TSH5 #### [facility] [address] [place] [address] PT Coag (PPP) [Time] 11.6 9.0-12.0 s Normal 03-26-201 9 [facility] ([id number]) Comment: Result Comment: . Performed By: #### HEMDF, BM P3, BNP3, TROPN, TSH5 #### [facility] [address] [place] [address] hosp on 2018-11-12 HOSP Patient:Elia Weston Normal 11-12-19 [facility] MRN: Stamps ([id number]) Height:5' 10(1.778 m) Weight:No patient weight recorded within the last 30 days. Outpatient Medications as of 11/12/18: apixaban (ELIQUIS ORAL) SENSIPAR 60 mg tablet carvedilol (COREG) 3.125 mg tablet Walker misc sevelamer carbonate (RENVELA) 800 mg tablet Admission/Clinic Administered Medications as of 11/12/18: Patient has no admission medications. Problem List: ESRD (end stage renal disease) on dialysis [N18.6, Z99.2] HTN (hypertension) [I10] Morbid obesity (HCC) [E66.01] Epigastric pain [R10.13] Mechanical complication of o ther vascular device, implant, and graft [T82.598A] Right knee pain [M25.561] BMI 45.0-49.9, adult (HCC) [Z68.42] Tendinitis of left shoulder [M75.82] NO SHOW [905585] Mass of left thigh [R22.42] Thigh pain [M79.659] Hematuria [R31.9] Dialysis patient (HCC) [Z99.2] YEIMY (obstructive sleep apnea) [G47.33] Abdominal or pelvic swelling, mass, or lump, right lower maura drant [R19.03] Secondary hyperparathyroidism (HCC) [N25.81] Renal osteodystrophy [N25.0] Hyperphosphatemia [E83.39] Groin pain [R10.30] Pulmonary embolism without acute cor pulmonale (HCC) [I26.99 ] Sprain of medial collateral ligament of right knee [S83.411A ] Allergies: No Known Allergies Date Verified:11/12/18 Lab Values No results within the last 30 days for the following basenam es: K,HCT No progress notes entered within the past 30 days hosp on 2018-10-28 HOSP Patient:Elia Weston Normal 10-28-19 [facility] MRN: Aliica ([id number]) Height:5' 10(1.778 m) Weight:No patient weight recorded within the last 30 days. Outpatient Medications as of 11/12/18: apixaban (ELIQUIS ORAL) SENSIPAR 60 mg tablet carvedilol (COREG) 3.125 mg tablet Walker misc sevelamer carbonate (RENVELA) 800 mg tablet Admission/Clinic Administered Medications as of 11/12/18: Patient has no admission medications. Problem List: ESRD (end stage renal disease) on dialysis [N18.6, Z99.2] HTN (hypertension) [I10] Morbid obesity (HCC) [E66.01] Epigastric pain [R10.13] Mechanical complication of o ther vascular device, implant, and graft [T82.598A] Right knee pain [M25.561] BMI 45.0-49.9, adult (HCC) [Z68.42] Tendinitis of left shoulder [M75.82] NO SHOW [141050] Mass of left thigh [R22.42] Thigh pain [M79.659] Hematuria [R31.9] Dialysis patient (HCC) [Z99.2] YEIMY (obstructive sleep apnea) [G47.33] Abdominal or pelvic swelling, mass, or lump, right lower maura drant [R19.03] Secondary hyperparathyroidism (HCC) [N25.81] Renal osteodystrophy [N25.0] Hyperphosphatemia [E83.39] Groin pain [R10.30] Pulmonary embolism without acute cor pulmonale (HCC) [I26.99 ] Sprain of medial collateral ligament of right knee [S83.411A ] Allergies: No Known Allergies Date Verified:11/12/18 Lab Values No results within the last 30 days for the following basenam es: K,HCT No progress notes entered within the past 30 days hep b surface ag on 2018-10-08 Hep B Surface Ag NOT DETECTED Not-Detected Normal 019 [facility] ([id number]) Comment: Performed By: #### HEMDF, BM P3, BNP3, TROPN, TSH5 #### [facility] [address] [place] [address] hemogram on 2018-09 MCHC (RBC) [Mass/Vol] 32.7 32.0-36.0 % Normal 10-08-19 19 [facility] ([id number]) Comment: Performed By: #### HEMDF, BM P3, BNP3, TROPN, TSH5 #### [facility] [address] [place] [address] Erythrocyte distribution 19.1 11.5-14.5 % High 10-08 [facility] width (RBC) [Ratio] ([id number]) Comment: Performed By: #### HEMDF, BM P3, BNP3, TROPN, TSH5 #### [facility] [address] [place] [address] Hematocrit (Bld) [Volume 31.1 40.0-52.0 % Low 10-08 [facility] fraction] ([id number]) Comment: Performed By: #### HEMDF, BM P3, BNP3, TROPN, TSH5 #### [facility] [address] [place] [address] Hemoglobin (Bld) [Mass/Vol] 10.2 13.0-18.0 g/dL Low [facility] ([id number]) Comment: Performed By: #### HEMDF, BM P3, BNP3, TROPN, TSH5 #### [facility] [address] [place] [address] MCH (RBC) [Entitic mass] 29.1 26.0-34.0 pg Normal 10-08 [facility] ([id number]) Comment: Performed By: #### HEMDF, BM P3, BNP3, TROPN, TSH5 #### [facility] [address] [place] [address] MCV (RBC) [Entitic vol] 88.7 80.0-98.0 fL Normal 2018 [facility] ([id number]) Comment: Performed By: #### HEMDF, BM P3, BNP3, TROPN, TSH5 #### [facility] [address] [place] [address] Platelet mean volume (Bld) 9.5 7.4-10.4 fL Normal [facility] [Entitic vol] (46925 ) Comment: Performed By: #### HEMDF, BM P3, BNP3, TROPN, TSH5 #### [facility] [address] [place] [address] Platelets (Bld) [#/Vol] 194 140-440 10*3/uL Normal 2018 [facility] ([id number]) Comment: Performed By: #### HEMDF, BM P3, BNP3, TROPN, TSH5 #### [facility] [address] [place] [address] RBC (Bld) [#/Vol] 3.50 4.40-5.90 10*6/uL Low 10-08-2018 [facility] ([id number]) Comment: Performed By: #### HEMDF, BM P3, BNP3, TROPN, TSH5 #### [facility] [address] [place] [address] WBC (Bld) [#/Vol] 4.1 3.6-10.7 10*3/uL Normal 10-08-2018 [facility] (39110) Comment: Performed By: #### HEMDF, BM P3, BNP3, TROPN, TSH5 #### [facility] [address] [place] [address] echo 2d/3d lizy w/wo contrast on 2018-10-08 Echo Patient Name: ELIA WESTON Normal [facility] 2D/3D LIZY [facility] w/wo Sy stem Contrast ([id number]) Ultrasound Exam Date/Time 10/08/2018 10:45:29 EST Exam Echo 2D/3D LIZY w/wo Contrast Ordering Physician LG FUENTES Accession Number [id number] Reason For Exam mitral stenosis Report TRANSESOPHAGEAL ECHOCARDIOGRAM PATIENT: Elia Weston STUDY DATE: 10/08/2018 : 1980 AGE: 38 HT/WT: 177.8 cm (70 127 kg (279.4 in) lb) GENDER: M BP: 143 / 81 LOCATION: [facility] PATIENT Inpatient [facility] STATUS: *ORDERING PHYSICIAN: * Lg Fuentes MD *READING PHYSICIAN: * Coy Guerra MD *HEAD OF OPERATION AND LOGISTICS: * Shell Carl RCS --- INDICATIONS: (Fluid overload). Mitral stenosis [non-rheumati c] (I348). --- CONCLUSIONS SUMMARY: 1. Mitral valve: Severely calcified, severely thickened elvis linda. Transvalvular velocity is increased. The findings are consistent with mode rate to severe stenosis. Mean gradient (D): 12 mm Hg. Evans score: Leafle t mobility 1, Valve thickness 2, Subvalvular thickening 1, Valvular calcif ication 2, total 6. 2. Left ventricle: Systolic function is normal. 3. Right ventricle: Systolic function is normal. 4. Left atrium: The atrium is mildly dilated. 5. Pulmonary arteries: Systolic pressure is within the amanda l range, estimated to be 25 mm Hg. RECOMMENDATIONS: This does not appear to be a rheumatic mitr al valve. Rather the stenosis appears to be primarily an annular problem, rosalva s not idea for balloon valvoloplasty. --- STUDY DATA: Transesophageal echocardiography was performed. Procedure: Initial setup. Surface ECG leads, blood pressure measurement s, and pulse oximetric signals were monitored. Image quality was goodA tr ansesophageal probe was inserted by the attending cardiologistwithout diff iculty. Complete 2D, complete spectral Doppler, and color flow Doppler images were acquired and archived for permanent storage and are available for subsequ ent review. Study status: Routine. Patient status: Inpatient. Location: [facility]. Consent: The risks, benefits, and alternatives to the proced ure were explained to the patient and informed consent was obtained. Administered medications: Propofol. ECG RHYTHM: NSR --- FINDINGS LEFT VENTRICLE: The cavity size is normal. Wall thickness is normal. Systolic function is normal. RIGHT VENTRICLE: The cavity size is normal. Wall thickness i s normal. Systolic function is normal. LEFT ATRIUM: Well visualized. The atrium is mildly dilated. No evidence of thrombus in the atrial cavity or appendage. No spontaneous echo contrast is observed. The appendage is well visualized and of normal siz e. Emptying velocity is normal. RIGHT ATRIUM: The atrium is normal in size. ATRIAL SEPTUM: The interatrial septum is normal. No evidence of patent foramen ovale or atrial septal defect. No evidence of intera trial shunt by color Doppler or with injection of agitated saline contrast. There is no evidence of right to left shunting with injection of agitate d saline contrast. MITRAL VALVE: Well visualized. Severely calcified, severely thickened annulus. Evans score: Leaflet mobility 1, Valve thickness 2, Subvalvular thickening 1, Valvular calcification 2, total 6. Doppler: Tr ansvalvular velocity is increased. The findings are consistent with mode rate to severe stenosis. There is no significant regurgitation. Mean gradie nt (D): 12 mm Hg. Peak gradient (D): 22 mm Hg. AORTIC VALVE: Well visualized. Trileaflet; normal thickness, noncalcified leaflets. Doppler: There is no stenosis. There is no regurgi tation. TRICUSPID VALVE: Well visualized. Structurally normal valve. Normal thickness leaflets. Doppler: There is trivial, less than 1+ regurgitation. PULMONIC VALVE: Structurally normal valve. Doppler: There is trivial, less than 1+ regurgitation. AORTA: The aortic root and ascending aorta are normal in siz e. The visualized portions of the arch and descending aorta are normal in size . PULMONARY ARTERY: Systolic pressure is within the normal ran ge, estimated to be 25 mm Hg. PERICARDIUM: There is no pericardial effusion. SYSTEMIC VEINS: Superior vena cava: The vessel is normal in size. PULMONARY VEINS: Left upper pulmonary vein: Normal sized. The Doppler velocit y and flow profile are normal. --- Measurements Mitral valve Value 10/07/2018 Mitral mean gradient, D 9 mm Hg 14 Mitral peak gradient, D 16 mm Hg 21 Legend: (L) and (H) raghavendra values outside specified reference range. Electronically signed by Coy Guerra MD 10/08/2018 11:55 Final Dictated: 10/08/2018 11:55 am Dictating Physician: COY GUERRA Signed Date and Time: 10/08/2018 11:55 am Signed by: COY GUERRA basic metabolic panel on 2018-10-08 Anion gap [Moles/Vol] 10 Normal 10-08-19 19 [facility] ([id number]) Comment: Performed By: #### HEMOG, PT #### [facility] [address] [place] [address] Calcium [Mass/Vol] 8.8 8.4-10.4 mg/dL Normal 10-08-2018 [facility] (15858) Comment: Performed By: #### HEMOG, PT #### [facility] [address] [place] [address] CO2 [Moles/Vol] 31 22-30 mmol/L High 10-08-2018 [facility] (13001) Comment: Performed By: #### HEMOG, PT #### [facility] [address] [place] [address] Creatinine [Mass/Vol] 9.31 0.52-1.25 mg/dL High 10-08-19 19 [facility] ([id number]) Comment: Performed By: #### HEMOG, PT #### [facility] [address] [place] [address] GFR/1.73 sq M predicted 7.8 >60 mL/min Normal 2018 [facility] among blacks MDRD (S/P/Bld) (36814) [Vol rate/Area] Comment: Performed By: #### HEMOG, PT #### [facility] [address] [place] [address] GFR/1.73 sq M predicted 6.4 >60 mL/min Normal 2018 [facility] among non-blacks MDRD (80777) (S/P/Bld) [Vol rate/Area] Comment: Result Comment: Source- MDRD equation with creatinine calibration to IDMS(NKDEP) eGFR not recommended for edilberto g dose adjustment Performed By: #### HEMOG, PT #### [facility] [address] [place] [address] Glucose [Mass/Vol] 93 70-100 mg/dL Normal 10-08-2018 [facility] ([id number]) Comment: Performed By: #### HEMOG, PT #### [facility] [address] [place] [address] Urea nitrogen [Mass/Vol] 38 7-20 mg/dL High 10-08 [facility] (51255) Comment: Performed By: #### HEMOG, PT #### [facility] [address] [place] [address] Chloride [Moles/Vol] 97 98-107 mmol/L Low 9 [facility] (25912) Comment: Performed By: #### HEMOG, PT #### [facility] [facility] [address] [place] [address] Potassium [Moles/Vol] 5.8 3.5-5.1 mmol/L High 10-08-19 19 [facility] (36636) Comment: Performed By: #### HEMOG, PT #### [employer] [facility] [address] [place] [address] Sodium [Moles/Vol] 139 135-145 mmol/L Normal 10-08-2018 [facility] (46303) Comment: Performed By: #### HEMOG, PT #### [facility] [address] [place] [address] magnesium on 10-07 Magnesium [Mass/Vol] 2.0 1.6-2.3 mg/dL Normal 9 [facility] (96359) Comment: Performed By: #### HEMOG, PT #### [facility] [address] [place] [address] lipid panel on 2018 Cholesterol in HDL [Mass/Vol] 31 40-60 mg/dL Low 10-07-2018 [facility] (56573) Comment: Performed By: #### HEMOG, PT #### [facility] [address] [place] [address] Cholesterol.total/Cholesterol in HDL [Mass 5 Normal 10-07-2018 [facility] ratio] (30640) Comment: Result Comment: Ref Range: < 3 Low Risk for CHD 3-6 Mod Risk for CHD > 6 High Risk for CHD Performed By: #### HEMOG, PT #### [facility] [address] [place] [address] Protein [Mass/Vol] 92 <100 mg/dL Normal 10-07-2018 [facility] (21346) Comment: Performed By: #### HEMOG, PT #### [facility] [address] [place] [address] Triglyceride [Mass/Vol] 108 <150 mg/dL Normal 2018 [facility] (10264) Comment: Performed By: #### HEMOG, PT #### [facility] [address] [place] [address] Cholesterol [Mass/Vol] 145 < 200 mg/dL Normal 019 [facility] (20971) Comment: Performed By: #### HEMOG, PT #### [facility] [address] [place] [address] hemogram on 2018-09 Erythrocyte distribution 18.8 11.5-14.5 % High 10-07 [facility] width (RBC) [Ratio] (14791) Comment: Performed By: #### HEMOG, PT #### [facility] [address] [place] [address] Hematocrit (Bld) [Volume 31.4 40.0-52.0 % Low 10-07 [facility] fraction] (97117) Comment: Performed By: #### HEMOG, PT #### [facility] [address] [place] [address] Hemoglobin (Bld) [Mass/Vol] 9.9 13.0-18.0 g/dL Low [facility] (74968) Comment: Performed By: #### HEMOG, PT #### [facility] [address] [place] [address] MCH (RBC) [Entitic mass] 28.6 26.0-34.0 pg Normal 10-07 [facility] (41578) Comment: Performed By: #### HEMOG, PT #### [facility] [address] [place] [address] MCHC (RBC) [Mass/Vol] 31.5 32.0-36.0 % Low 10-07-19 19 [facility] (82168) Comment: Performed By: #### HEMOG, PT #### [facility] [address] [place] [address] MCV (RBC) [Entitic vol] 90.8 80.0-98.0 fL Normal 2018 [facility] (60219) Comment: Performed By: #### HEMOG, PT #### [facility] [address] [place] [address] Platelet mean volume (Bld) 9.1 7.4-10.4 fL Normal [facility] [Entitic vol] (06621 ) Comment: Performed By: #### HEMOG, PT #### [facility] [address] [place] [address] Platelets (Bld) [#/Vol] 138 140-440 10*3/uL Low 2018 [facility] ([id number]) Comment: Performed By: #### HEMOG, PT #### [facility] [address] [place] [address] RBC (Bld) [#/Vol] 3.46 4.40-5.90 10*6/uL Low 10-07-2018 [facility] (86804) Comment: Performed By: #### HEMOG, PT #### [facility] [address] [place] [address] WBC (Bld) [#/Vol] 3.8 3.6-10.7 10*3/uL Normal 10-07-2018 [facility] ([id number]) Comment: Performed By: #### HEMOG, PT #### [facility] [address] [place] [address] echo complete w/wo contrast on 2018-10-07 Echo Patient Name: ELIA WESTON Normal [facility] w/wo Sy stem Contrast ([id number]) Ultrasound Exam Date/Time 10/07/2018 09:21:54 EST Exam Echo Complete w/wo Contrast Ordering Physician [id number] -ROSA CARRASCO Accession Number [id number] Reason For Exam Fluid overload Report TRANSTHORACIC ECHOCARDIOGRAM PATIENT: Elia Weston STUDY DATE: 10/07/2018 : 1980 AGE: 38 HT/WT: 180.3 cm (71 135.6 kg in) (298.4 lb) GENDER: M BP: 146 / 71 LOCATION: [facility] PATIENT Inpatient [facility] STATUS: *ORDERING PHYSICIAN: Rosa Rand *READING PHYSICIAN: * Noah Gonzalez, *HEAD OF OPERATION AND LOGISTICS: Cait Guerrero RDCS, MD AE --- INDICATIONS: (Fluid overload). --- CONCLUSIONS SUMMARY: 1. Left ventricle: The cavity size is normal. Wall thickness is mildly increased. Systolic function is normal by the biplane method of disks. The estimated ejection fraction is 68%. There are no regional wa ll motion abnormalities. Unable to assess LV diastolic function due to due to MAC and MV disease 2. Right ventricle: The cavity size is mildly dilated. Sys tolic function is normal. Right ventricular systolic pressure is mildly increa sed. RV systolic pressure (S, est): 39 mm Hg. 3. Right atrium: Central venous pressure (est): 3 mm Hg. 4. Mitral valve: Severely calcified annulus. Moderately thic kened, mildly calcified leaflets. Mildly thickened and mildly calcified MV chords. The findings are consistent with moderately severe stenosis. Fin dings are borderline for severe MS. There is mild, 1+ regurgitation. M rip gradient (D): 12 mm Hg on average of multiple measurements. Valve are a by pressure half-time: 1.7 cm2. Valve area by continuity equation (using LVOT flow): 1.5 cm2. 5. Pericardium, extracardiac: There is no pericardial effusi on. RECOMMENDATIONS: 1. Heart rate is elevated and LV function visually is border line hyperdynamic which may increase gradients above a true baseline value. Cl inical correlation recommended and consider repeat echo when patien t may be under less catecholamine stress. 2. Given calcification and thickening of MV disease, conside r rheumatic heart disease even though MV findings are not necessarily classic for this lesion. 3. Consider LIZY for further evaluation of MV disease and richi racterization of MV chords. --- STUDY DATA: Complete transthoracic echocardiogram. Procedure : Image quality was adequate. M-mode, complete 2D, complete spectral Doppler, and color flow Doppler images were acquired and archived for [facility] storage and are available for subsequent review. Study status: Routine. Patient status: Inpatient. ECG RHYTHM: NSR --- FINDINGS LEFT VENTRICLE: The cavity size is normal. Wall thickness is mildly increased. Systolic function is normal by the biplane method of disks. The estimated ejection fraction is 68%. There are no regional wa ll motion abnormalities. Unable to assess LV diastolic function due to due to MAC and MV disease RIGHT VENTRICLE: The cavity size is mildly dilated. Systolic function is normal. Right ventricular systolic pressure is mildly increa sed. VENTRICULAR SEPTUM: There is no evidence of a ventricular se ptal defect. LEFT ATRIUM: The atrium is mildly dilated in visual appearan ce. RIGHT ATRIUM: The atrium is normal in size. ATRIAL SEPTUM: Color Doppler shows no evidence of shunt. MITRAL VALVE: Severely calcified annulus. Moderately thicken ed, mildly calcified leaflets. Mildly thickened and mildly calcified MV chords. Doppler: The findings are consistent with moderately severe stenosis. Findings are borderline for severe MS. There is mild, 1+ regurgitation. V alve area by pressure half-time: 1.7 cm2. Valve area by continuity equati on (using LVOT flow): 1.5 cm2. Mean gradient (D): 12 mm Hg on average of mu ltiple measurements. Peak gradient (D): 21 mm Hg. AORTIC VALVE: Structurally normal valve. Trileaflet. Doppler : There is trivial, less than 1+ regurgitation. TRICUSPID VALVE: Structurally normal valve. Doppler: There i s mild, 1+ regurgitation. PULMONIC VALVE: Structurally normal valve. Doppler: There is trivial, less than 1+ regurgitation. AORTA: The aorta is normal. PULMONARY ARTERY: Main pulmonary artery: Normal. PERICARDIUM: A prominent pericardial fat pad is present. The re is no pericardial effusion. SYSTEMIC VEINS: Not well visualized. Inferior vena cava: The vessel is normal. The IVC collapse s by greater than 50% with inspiration. --- [...] 2.92 m/sec --------- Legend: (L) and (H) raghavendra values outside specified reference range. Electronically signed by Noah Gonzalez MD 10/07/2018 10:27 Final Dictated: 10/07/2018 10:27 am Dictating Physician: MD GONZALEZ STEPHEN A Signed Date and Time: 10/07/2018 10:27 am Signed by: MD GONZALEZ STEPHEN A cta chest w/ + w/o contrast on 2018-10-07 CTA Chest w/ + Patient Name: ELIA WESTON 10-07-2018 [place] w/o Contrast Syst em (0 0000) CT Exam Date/Time 10/06/2018 14:10:00 EST Exam CTA Chest w/ + w/o Contrast Ordering Physician CHIDI ANDERSON KRISITN A. Accession Number [id number] CPT4 Codes 93794 (), Q9967 (CT ISOVUE 370MG/[id number]) Reason For Exam CHEST PAIN, ACUTE, PULMONARY EMBOLISM SUSPECTED Report CT ANGIOGRAPHY CHEST: CLINICAL INDICATION: Shortness of breath and chest pain with renal failure. Patient has a left femoral venous dialysis access catheter a nd peripheral IV in the right upper extremity TECHNIQUE: Transaxial sequence from apices through the bas es during dynamic intravenous infusion of 75 mL of contrast media, injected at a high flow rate. Multiplanar and 3D MIP reconstruction was performed concurre ntly on an independent viewing workstation. Dose reduction was employ ed with automated exposure control. COMPARISON: Nuclear VQ scan from the same date FINDINGS: Exam quality: Nondiagnostic contrast enhancement of the vasc ulature. 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 There are numerous collateral v essels throughout the visualized chest wall anteriorly and posteriorly. There is n o contrast enhancement of the pulmonary vessels. Aorta: Aorta demonstrates normal caliber. Evaluation for dis section is not possible. Lungs: Atelectasis is noted at the left lung base. There is some scattered reticular opacities without lobar consolidation. No parenchy mal or pleural-based mass. Pleural fluid: None. Heart: Cardiac chambers demonstrate normal size. Calcificati on is noted in the region of the mitral annulus. Mediastinum/Klaudia: There is either calcification or a small a mount contrast within the superior and cava. There is minimal contrast in t he azygos vein which is enlarged. There is no mediastinal or hilar mass. Few smal l prevascular space lymph nodes are identified in the normal size range. Soft tissues chest wall/Neck base: Extensive collateral vess els are noted throughout the subcutaneous soft tissues. Upper abdomen: No abnormality throughout the visualized port ions of liver. No abnormality throughout the spleen. Adrenals are unremarkable . Osseous structures: S-shaped scoliosis is noted. IMPRESSION: 1. 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 2. Nondiagnostic evaluation for aortic dissection. 3. Some scattered reticular opacities throughout the lungs m ay reflect some mild interstitial edema but no consolidation or pleural flui d is noted. Report Dictated on Workstation: [id number] Final Dictating Physician: MD FRY JEFFREY Signed Date and Time: 10/07/2018 6:28 am Signed by: MD FRY JEFFREY Transcribed Date and Time: 10/07/2018 6:29 basic metabolic panel on 2018-10-07 Calcium [Mass/Vol] 8.1 8.4-10.4 mg/dL Low 10-07-2018 [facility] ([id number]) Comment: Performed By: #### HEMOG, PT #### [facility] [address] [place] [address] Glucose [Mass/Vol] 98 70-100 mg/dL Normal 10-07-2018 [facility] ([id number]) Comment: Performed By: #### HEMOG, PT #### [facility] [address] [place] [address] Anion gap [Moles/Vol] 12 Normal 10-07-19 19 [facility] ([id number]) Comment: Performed By: #### HEMOG, PT #### [facility] [address] [place] [address] CO2 [Moles/Vol] 28 22-30 mmol/L Normal 10-07-2018 [facility] ([id number]) Comment: Performed By: #### HEMOG, PT #### [facility] [address] [place] [address] Creatinine [Mass/Vol] 10.11 0.52-1.25 mg/dL High 10-07-19 19 [facility] (14530) Comment: Performed By: #### HEMOG, PT #### [facility] [address] [place] [address] GFR/1.73 sq M predicted 7.1 >60 mL/min Normal 2018 [facility] among blacks MDRD (S/P/Bld) ([id number]) [Vol rate/Area] Comment: Performed By: #### HEMOG, PT #### [facility] [address] [place] [address] GFR/1.73 sq M predicted 5.8 >60 mL/min Normal 2018 [facility] among non-blacks MDRD (36348) (S/P/Bld) [Vol rate/Area] Comment: Result Comment: Source- MDRD equation with creatinine calibration to IDMS(NKDEP) eGFR not recommended for edilberto g dose adjustment Performed By: #### HEMOG, PT #### [facility] [address] [place] [address] Urea nitrogen [Mass/Vol] 49 7-20 mg/dL High 10-07 [facility] ([id number]) Comment: Performed By: #### HEMOG, PT #### [facility] [address] [place] [address] Chloride [Moles/Vol] 100 98-107 mmol/L Normal 9 [facility] (14926) Comment: Performed By: #### HEMOG, PT #### [facility] [address] [place] [address] Potassium [Moles/Vol] 5.3 3.5-5.1 mmol/L High 10-07-19 19 [facility] ([id number]) Comment: Performed By: #### HEMOG, PT #### [facility] [address] [place] [address] Sodium [Moles/Vol] 140 135-145 mmol/L Normal 10-07-2018 [facility] ([id number]) Comment: Performed By: #### HEMOG, PT #### [facility] [address] [place] [address] xa special angiography procedure on 2018-10-06 XA Special Angiography Patient Name: ELIA WESTON Normal 10-06-2018 [facility] ([id number]) Special Procedures Exam Date/Time 10/06/2018 10:26:09 EST Exam XA Special Angiography Procedure Ordering Physician MD RAN, KEYLA TREVIÑO Accession Number [id number] Reason For Exam DIALYSIS CATHETER EXCHANGE / CLOTTED ON VENOUS LINE Report FLUOROSCOPIC GUIDED TUNNELED DIALYSIS CATHETER EXCHANGE. CLINICAL HISTORY: Left groin tunneled hemodialysis catheter dysfunction Fluoroscopy time: 0.3 minutes Angiographic runs: 0 Fluoroscopic spot images: Two Procedural details: The benefits and risks of the procedure were explained to the patient and the patient signed informed consent. The pat ient was brought into the interventional radiology suite and placed supine on the table. An audible timeout was performed. The patient's left groin tunneled hemodialysis catheter and surrounding skin were prepped and draped in the usual sterile fashion. Danica l sterile barrier technique was utilized. All elements of maximal sterile moctezuma ier technique including hand hygiene, a mask, hat, sterile gown, sterile g loves, and large sterile sheet were utilized. Betadine antiseptic was utilize d for skin sterilization. Attempts were made to flush and draw from both lumens of the existing catheter. The venous lumen flushed and aspirated appropriately. The ar terial lumen would flush, but would not aspirate adequately. The decision was t herefore made to exchange the catheter for a new longer catheter now terminat ing in the inferior vena cava. The subcutaneous tissues surrounding the catheter exit site and tunnel were anesthetized using 1 % lidocaine injection. Ne xt, a stiff 0.035 inch Glidewire were advanced through both lumens of the existing tunneled hemodialysis catheter and into the inferior vena cava. The s ubcutaneous cuff was then freed from the subcutaneous cutaneous tissues using racheal nt dissection. The catheter was then exchanged over the wire for a new tunneled hemodialysis catheter. Fluoroscopy confirmed that the catheter tip termin ates in the inferior vena cava. Both lumens of the catheter flushed and aspirated appropriately. The catheter was then sutured to the patient's skin using 2- 0 silk suture. The patient tolerated the procedure well, but did describe mild palpitations and it was noted that his heart rate was in the high 120s/low 130s beats per minute on the monitor. His blood pressure remained unchanged and stabl e. The patient denied chest pain, shortness of breath, or dizziness. The pa tiemariano was transferred to the recovery area in stable condition. IMPRESSION: 1. Successful fluoroscopic guided exchange of a tunneled hem odialysis catheter. The catheter is ready for use. Report Dictated on Final Dictating Physician: MD KYLER, THIAGO MA Signed Date and Time: 10/06/2018 2:42 pm Signed by: MD CHÁVEZ GEORGE RICHARD Transcribed Date and Time: 10/06/2018 2:43 troponin i on 10-06 Troponin I.cardiac < 0.012 0.000-0.034 ng/mL Normal 9 [facility] [Mass/Vol] ([id number]) Comment: Result Comment: 0.046 - 0.40 0 = Indeterminate > 0.400 = Consider Myocardia l Injury Performed By: #### HEMDF, BM P3, BNP3, TROPN, TSH5 #### [facility] [address] [place] [address] thyroid stim. hormone on 2018-10-06 Thyroid Stim. 3.917 0.465-4.680 u[IU]/mL Normal 10-06-2018 [facility] Hormone ([id number]) Comment: Performed By: #### HEMDF, BM P3, BNP3, TROPN, TSH5 #### [facility] [address] [place] [address] prothrombin time on 2018-10-06 INR Coag (PPP) [Relative 1.1 0.9-1.1 Normal 10-06 [facility] time] ([id number]) Comment: Result Comment: Recommended Anticoagulant Therapy: SEE BELOW ----- INR of 2.0 - 3.0 : - Prophylaxis of Venous Thro mbosis (high-risk surgery) - Treatment of Venous Thromb osis - Treatment of Pulmonary Emb olism (Includes tissue heart valves, Acute Myocardial Inf arction to prevent systemic embolism, Valvular Heart Dis ease, and Atrial Fibrillation) ----- INR of 2.5 - 3.5 : - Mechanical Prosthetic Valv es (high risk) - If oral 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 ther apy is used to prevent Myocardial Infarction Performed By: #### HEMOG, PT #### [facility] [address] [place] [address] PT Coag (PPP) [Time] 11.4 9.0-12.0 s Normal 9 [facility] ([id number]) Comment: Result Comment: . Performed By: #### HEMOG, PT #### [facility] [address] [place] [address] nt pro bnp on 10-06 Natriuretic peptide B (Bld) 6163 0-125 pg/mL High [facility] [Mass/Vol] ([id number]) Comment: Performed By: #### HEMDF, BM P3, BNP3, TROPN, TSH5 #### [facility] [address] [place] [address] nm pulmonary ventilation/perfusion quant itative on 2018-10-06 NM Pulmonary Patient Name: ELIA WESTON Normal 10-06-2018 [facility] Ventilation/Perfusion Health Quantitative System ([id number]) Nuc Med Exam Date/Time 10/06/2018 17:34:58 EST Exam NM Pulmonary Ventilation/Perfusion Ordering Physician MD VERO, [facility] Accession Number [id number] CPT4 Codes 04557 (), A9567 () Reason For Exam CHEST PAIN, ACUTE, PULMONARY EMBOLISM SUSPECTED Report Examination: VQ scan Clinical Indication: Chest pain, concern for pulmonary embolus Comparison: Correlation with chest x-ray 10/06/2017 Findings: Patient was administered and inhalational 44.4 mCi equivalen t dose of technetium 99m DTPA aerosol. The patient ventilated twice. Patient was subsequently injected with 4.1 mCi of technetium 99m macroaggregated albu min. Both ventilation and perfusion images were obtained in multiple p lanes. There is homogenous uptake of ventilatory and perfusion radiopharmaceutical. On the left posterior oblique perfusion image, there is a small nonsegmental perfusion defect. Otherwise there is no ventilation/perfusio n mismatch to suggest pulmonary embolus. Impression: On the left posterior oblique perfusion image, there is a sm all nonsegmental perfusion defect. Otherwise there is no ventilation/perfusio n mismatch to suggest pulmonary embolus. Low probability of pulmonary embo lism by the modified PIOPED criteria. Report Dictated on Final Dictating Physician: MD MCINTYRE JASON Signed Date and Time: 10/06/2018 6:21 pm Signed by: MD MCINTYRE JASON Transcribed Date and Time: 10/06/2018 6:22 hemogram on 2018-09 Erythrocyte distribution 19.2 11.5-14.5 % High 10-06 [facility] width (RBC) [Ratio] ([id number]) Comment: Performed By: #### HEMOG, PT #### [facility] [address] [place] [address] Hematocrit (Bld) [Volume 33.1 40.0-52.0 % Low 10-06 [facility] fraction] (80374) Comment: Performed By: #### HEMOG, PT #### [facility] [address] [place] [address] Hemoglobin (Bld) [Mass/Vol] 10.5 13.0-18.0 g/dL Low [facility] (54709) Comment: Performed By: #### HEMOG, PT #### [facility] [address] [place] [address] MCH (RBC) [Entitic mass] 28.9 26.0-34.0 pg Normal 10-06 [facility] (23439) Comment: Performed By: #### HEMOG, PT #### [facility] [address] [place] [address] MCHC (RBC) [Mass/Vol] 31.8 32.0-36.0 % Low 10-06-19 19 [facility] (85556) Comment: Performed By: #### HEMOG, PT #### [facility] [address] [place] [address] MCV (RBC) [Entitic vol] 90.8 80.0-98.0 fL Normal 2018 [facility] (89160) Comment: Performed By: #### HEMOG, PT #### [facility] [address] [place] [address] Platelet mean volume (Bld) 9.3 7.4-10.4 fL Normal [facility] [Entitic vol] (99658 ) Comment: Performed By: #### HEMOG, PT #### [facility] [address] [place] [address] Platelets (Bld) [#/Vol] 186 140-440 10*3/uL Normal 2018 [facility] (92650) Comment: Performed By: #### HEMOG, PT #### [facility] [address] [place] [address] RBC (Bld) [#/Vol] 3.65 4.40-5.90 10*6/uL Low 10-06-2018 [facility] (04579) Comment: Performed By: #### HEMOG, PT #### [facility] [address] [place] [address] WBC (Bld) [#/Vol] 4.2 3.6-10.7 10*3/uL Normal 10-06-2018 [facility] (00479) Comment: Performed By: #### HEMOG, PT #### [facility] [address] [place] [address] hemogram w/ autodiff on 2018-10-06 Abs Baso Cnt 0.0 0.0-0.2 10*3/uL Normal 10-06-2018 [facility] (02806) Comment: Performed By: #### HEMDF, BM P3, BNP3, TROPN, TSH5 #### [facility] [address] [place] [address] Abs Neutrophile Cnt 2.0 1.8-7.0 10*3/uL Normal 10-06-2018 [facility] (73859) Comment: Performed By: #### HEMDF, BM P3, BNP3, TROPN, TSH5 #### [facility] [address] [place] [address] Basophils/100 WBC (Bld) 1.0 0.0-2.0 % Normal 2018 [facility] (03192) Comment: Performed By: #### HEMDF, BM P3, BNP3, TROPN, TSH5 #### [facility] [address] [place] [address] Eosinophils (Bld) [#/Vol] 0.1 0.0-0.5 10*3/uL Normal [facility] (52945) Comment: Performed By: #### HEMDF, BM P3, BNP3, TROPN, TSH5 #### [facility] [address] [place] [address] Eosinophils/100 WBC (Bld) 2.5 1.0-6.0 % Normal [facility] (33966) Comment: Performed By: #### HEMDF, BM P3, BNP3, TROPN, TSH5 #### [facility] [address] [place] [address] Erythrocyte distribution 18.8 11.5-14.5 % High 10-06 [facility] width (RBC) [Ratio] (17766) Comment: Performed By: #### HEMDF, BM P3, BNP3, TROPN, TSH5 #### [facility] [address] [place] [address] Granulocytes/100 WBC (Bld) 57.7 40.0-80.0 % Normal [facility] (57970) Comment: Performed By: #### HEMDF, BM P3, BNP3, TROPN, TSH5 #### [facility] [address] [place] [address] Hematocrit (Bld) [Volume 32.9 40.0-52.0 % Low 10-06 [facility] fraction] (56326) Comment: Performed By: #### HEMDF, BM P3, BNP3, TROPN, TSH5 #### [facility] [address] [place] [address] Hemoglobin (Bld) [Mass/Vol] 10.5 13.0-18.0 g/dL Low [facility] (91266) Comment: Performed By: #### HEMDF, BM P3, BNP3, TROPN, TSH5 #### [facility] [address] [place] [address] Lymphocytes (Bld) [#/Vol] 0.6 1.0-4.3 10*3/uL Low [facility] (42173) Comment: Performed By: #### HEMDF, BM P3, BNP3, TROPN, TSH5 #### [facility] [address] [place] [address] Lymphocytes/100 WBC (Bld) 18.8 20.0-40.0 % Low [facility] (59650) Comment: Performed By: #### HEMDF, BM P3, BNP3, TROPN, TSH5 #### [facility] [address] [place] [address] MCH (RBC) [Entitic mass] 28.6 26.0-34.0 pg Normal 10-06 [facility] (83738) Comment: Performed By: #### HEMDF, BM P3, BNP3, TROPN, TSH5 #### [facility] [address] [place] [address] MCHC (RBC) [Mass/Vol] 31.8 32.0-36.0 % Low 10-06-19 19 [facility] (07629) Comment: Performed By: #### HEMDF, BM P3, BNP3, TROPN, TSH5 #### [facility] [address] [place] [address] MCV (RBC) [Entitic vol] 89.9 80.0-98.0 fL Normal 2018 [facility] (06411) Comment: Performed By: #### HEMDF, BM P3, BNP3, TROPN, TSH5 #### [facility] [address] [place] [address] Monocytes (Bld) [#/Vol] 0.7 0.0-0.8 10*3/uL Normal 2018 [facility] (81181) Comment: Performed By: #### HEMDF, BM P3, BNP3, TROPN, TSH5 #### [facility] [address] [place] [address] Monocytes/100 WBC (Bld) 20.0 2.0-10.0 % High 2018 [facility] (57081) Comment: Performed By: #### HEMDF, BM P3, BNP3, TROPN, TSH5 #### [facility] [address] [place] [address] Platelet mean volume (Bld) 9.2 7.4-10.4 fL Normal [facility] [Entitic vol] (44464 ) Comment: Performed By: #### HEMDF, BM P3, BNP3, TROPN, TSH5 #### [facility] [address] [place] [address] Platelets (Bld) [#/Vol] 174 140-440 10*3/uL Normal 2018 [facility] (24988) Comment: Performed By: #### HEMDF, BM P3, BNP3, TROPN, TSH5 #### [facility] [address] [place] [address] RBC (Bld) [#/Vol] 3.67 4.40-5.90 10*6/uL Low 10-06-2018 [facility] (01237) Comment: Performed By: #### HEMDF, BM P3, BNP3, TROPN, TSH5 #### [facility] [address] [place] [address] WBC (Bld) [#/Vol] 3.4 3.6-10.7 10*3/uL Low 10-06-2018 [facility] (76372) Comment: Performed By: #### HEMDF, BM P3, BNP3, TROPN, TSH5 #### [facility] [address] [place] [address] ed provider note on 2018-10-06 ED Normal 10-06-2018 [facility] Provider Attestation signed by Mitra Mckeon MD at 10/08/2018 11:52 AM Health Note See my note System ([id number]) Emergency DepartmentEncounter Eun [facility] ED Patient: Elia Weston : 1980 Date of Evaluation: 10/06/2018 ED DIMPLE Provider: ALMA ROSA Pacheco was supervised by Dr. Mckeon who independently examined and evaluated the patient. Please see their attestation note for further detai ls. Chief Complaint Chief Complaint Patient presents with ? Tachycardia KONGIGANAK Elia Weston is a 38 y.o. male whopresents to the emergency d [facility] For evaluation of tachycardia as sociated with palpitations. [facility] the [facility], he was having his LEFT groin tunneled dialysis catheter replaced u nder fluoroscopy. Patient states that as soon as the procedure ended he felt some palpitation s, his heart rate was noted to be 120s to 130s per chart records. Per records, before the pro cedure patient's heart rate was in the 90s. Patient states that since his procedure , he has had increased shortness of breath with lying flat, h e has chest pain on his RIGHT side that radiates towards the midline. States it is slightl y worse with inspiration. She does have a history of pulmonar y embolisms, is not currently anticoagulated. States that the pain he is expecting the present time is not as severe as previous pulmonary embolism. Denies any fevers or chills, cough, congestion. Denies any calf pain or swelling. No recent travel, trauma. Eyes any abdominal pain, nausea, vomiting. No sig nificant back or flank pain. Patient's medical history includes end-stage renal disease, is o n hemodialysis Friday, Friday, Friday, history of pulmonary embolism, history of hypertension. Former smoker. ROS: Review of Systems At least 10 systems reviewed and otherwise acutely neg ative except as in the KONGIGANAK. Past History Past Medical History: Diagnosis Date ? ESRD (end stage renal disease) (FORMERLY [facility]) KIDNEY TRANSPLANT LIST ? Hemodialysis patient (FORMERLY [facility]) FRIDAY, FRIDAY AND FRIDAY IN [place] ? Hx of blood clots 2016 PE ? Hypertension NO MEDICATION ? Morbidly obese (FORMERLY [facility]) 10/06/2018 BMI 41.59 ? YEIMY (obstructive sleep [...] MG TABLET Take 120 mg by mouth ever y other day 2 tablets FERRIC CITRATE (AURYXIA) [...] intact. Cardiac: Slightly tachycardic, regular rate, no murmurs/rubs /gallops. Pulmonary: Clear to auscultation bilater ally. Non-labored breathing, speaks in full sentences. Abdomen:Normal active bowel sounds present in all area s. Soft, non-tender to palpation. No rebound/rigidity/guarding. Extremities: non-edematous Skin: warm/dry. Psychiatric: Appropriate moo d for chief complaint, cooperative with examination. Diagnostics [...] 0.6 (L) 1.0 - 4.3 10*3/uL Absolute [place] # 0.7 0.0 - 0.8 10*3/uL Absolute [...] eGFR 6.5 >60 mL/min EGFR IF NonAfrican Cypriot 5.4 >60 mL/min Calcium 8.2 (L) 8.4 [...] Result Date: 10/06/2018 Patient Name: ELIA WESTON -- -Diagnostic Radiology--- Exam Date/Time 10/06/2018 12:30:30 EST Exam CR Chest Portable Ordering Physician CHIDI ANDERSON KRISITN A. Accession Number [id number] CPT4 Codes 10279 () Reason For Exam CP, SOB Report EXAM TYPE : RADIOLOGIC EXAMINATION, CHEST, SINGLE VIEW FRONTAL (CXR SIN GLE VIEW) EXAM DATE AND TIME: 10/06/2018 12:30 PM EST INDICA TION: As pain, shortness of breath COMPARISON: None available. TECHNIQUE: A single frontal view of the thorax wa s obtained and reviewed. Special views: Non e. FINDINGS: 1. Lines/Tubes/Devices/Hardware: None. 2. Lungs: No consolidation. Pulmonary va scular congestion without overt edema. 3. Pleura: No pneumothorax o r large pleural effusions. 4. Heart and mediastinum: Normal cardiomediastinal contours given portable AP techniqu e. 5. Osseous structures: Dextroconvex curvature of th e lower thoracic spine. IMPRESSION: No consolidation. Pulmonary vascular congestion without overt e rachid. No large effusion. Report Dictated on --- Final --- Dictating Physician: MD THOMPSON NEIL Signed Rafa e and Time: 10/06/2018 12:53 pm Signed by: MD THOMPSON NEIL Transcribed Date and Time: 10/06/2018 12:54 Xa Special Angiography Procedure Result Date: 10/06/2018 Patient Name: LEIA WESTON -- -Special Procedures--- Exam Date/Time 10/06/2018 10:26:09 EST Exam XA Special Angiography Procedure Ordering Physician MD RAN, [facility] Accession Number [id number] Reason For Exam DIALYSIS CATHETER EXCHANGE / CLOTTED ON VENO US LINE Report FLUOROSCOPIC GUIDED TUNNELED DIALYSIS CATHETER EXCHANGE. CLINICAL HISTORY: Left groin tunneled hemodialysis catheter dys function Fluoroscopy time: 0.3 minutes Angiographic runs: 0 Fluoroscopic spot images: Two Procedura l details: The benefits and risks of the procedure were explained to the pa kelsey and the patient signed informed consent. The patient was brought int o the interventional radiology suite and placed supine on the tabl e. An audible timeout was performed. The patient's lef t groin tunneled hemodialysis catheter and surrounding skin were prepped and draped in the usual st erile fashion. Maximal sterile barrier tech nique was utilized. All elements of maximal sterile barrier technique including hand hygiene, a mask, hat, sterile gown, sterile gloves, and large sterile sh eet were utilized. Betadine antiseptic was utilized for skin sterilization. Attempts were made to fl ush and draw from both lumens of the existing catheter. Th e venous lumen flushed and aspirated appropriately. The arterial lumen would flu sh, but would not aspirate adequately. The decision was therefore made to exchange the catheter for a new longer catheter now terminating in the inferior vena cava. The subcutaneous tissues surrounding the catheter exit site and tunnel were anest hetized using 1 % lidocaine injection. Next, a stiff 0.035 inch Glidewire were advanced through b oth lumens of the existing tunneled hemodialysis catheter and into the i nferior vena cava. The subcutaneous cuff was then freed from th e subcutaneous cutaneous tissues using blunt dissection. The catheter was then exchanged over the w kristina for a new tunneled hemodialysis catheter. Fluoroscopy confirmed that the catheter tip terminates in the inferior vena cava. Both lumen s of the catheter flushed and aspirated appropriately. The catheter was then sutured to the patient's skin using 2-0 silk suture. The patient tolerated the procedure w ell, but did describe mild palpitations a nd it was noted that his heart rate was in the high 120s/low 130s beats per minute on the monitor. His blood pre ssure remained unchanged and stable. The patient denied chest pain, s hortness of breath, or dizziness. The patient was t ransferred to the recovery area in stable condition. IMPRESSION: 1. Successful fluoroscopic guided exchange of a tunneled hemodialysis catheter. The catheter is ready for use. Report Dictated on --- Final --- Dictating Physician: MD CHÁVEZ GEORGE RICHARD Signed Date and Time: 10/06/2018 2:42 pm Hamida d by: MD CHÁVEZ GEORGE RICHARD Transcribed Date and Time: 10/06/2018 2:43 Procedures: None. EKG: All EKG's areinterpreted by the Emergency Department Ph ysician in the absence of a oxygen plant operator.?Please see their note for inter pretation of EKG. ED Course and MDM In brief, Elia Weston nova 38 y.o. male who presented to the emergency department for evaluation of tachycardia/palpitations, occurred after h aving dialysis catheter replaced this morning. Initial heart rate is slight ly tachycardic in the low 100s, EKG is sinus rhythm, PA-C attending physician's note for the full int erpretation. Chest x-ray does demonstrate fluid overload, did personally this imagin g study. Blood work is indicated potassium of 5.5, calcium gluconate was given. 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 BNP is greater than 6000. D- dimer was added onto this patient's workup, found to be marginally elevated. Patient taken to CAT scan, there is no tissue with his IV in unable to perform the study to rul e out coronary embolism. At this time, the perfusion study has been ordered by Dr. Mckeon. Case was later discussed with the IMS, Dr. Gray, who agrees to accept this patient to her service for evaluation and treatment. All f indings have been discussed. Patient is also agreeable to plan. He is in no acute distress and reevaluation, her rate is 97 at this time. ED Medication Orders Start Ordered Status Ordering Provider 10/06/18 1257 10/06/18 1256 calcium chloride 1 g in sodium chloride 0.9 % 100 mL IVPB ONCE Last NOV action: Stopped - by LÓPEZ BARNES on 10/06/18 at 1530 MCKEON, MITRA 10/06/18 1257 10/06/18 1256 nitroglycerin (NITRO-BID) 2 % ointment 0.5 inch ONCE Last NOV action: Not Given - by JENNY PEGUERO on 10/06/18 at 1400 MCKEON, MITRA 10/06/18 1224 10/06/18 1224 iopamidol (ISOVUE-370) 76 % in jection 75 mL IMG ONCE PRN Last NOV action: Given - by PEARL MAHONEY on 10/06/18 at 1313 MCKEON, MITRA 10/06/18 1217 10/06/18 1216 aspirin chewable tablet 324 mg O NCE Last NOV action: Given - by NURYS CASTRO on 10/06/18 at 1221 JONH MAHARAJ Final Impression 1. Cardiorenal syndrome with renal failure, stag e 5 chronic kidney disease or end stage renal disease, with heart failure (HCC) 2. Hypervolemia, unspecified hypervolemia type 3. Hyperkalemia DISPOSITION Admitted 10/06/2018 04:11:29 PM (Please note that portions of this note may have been completed with a voice recognition program. Efforts were made t o edit the dictations but occasionally words aremis-transcribed.) Jonh Maharaj PA-C [employer] Jonh Maharaj PA-C 10/06/18 1615 ED Attending Note Normal 10-06-2018 Summ a Provider I have personally performed a face to face assessment of the patient and have Health Note reviewed the DIMPLE note. My mendoza findings include: System History: Patient sent from [facility], as he was tachycardic, he ([id number]) is having some chest pain. He had exchan ge of his LEFT groin dialysis catheter done today. He did have dialysis yesterday. Otherwise he is reporting in termittent hematuria but he reports that he has seen a urologist for this. Physical exam: Cardiovascular examinatio n: Regular rhythm, tachycardia, normal S1 and S2. Pulmonary examination: Initial breath sounds in a ll lung page Assessment and plan: Chest x-ray shows fluid overload. Potas sium is mildly elevated. Calcium IV was ordered. Tish general i farmworker. [id number] Nichole from nephrology, he is going to chidi mcelroy a different general i farmworker who covers him Signature: MITRA MCKEON MD EKG Interpretation Interpreted by emergency department physician Rhythm: normal sinus Rate: normal Roscoe: normal Ectopy: none Conduction: normal ST Segments: no acute change T Waves: no acute change Q Waves: atero-lateral leads MITRA MCKEON Per nephrology the patient will be dialyzed for fluid overlo ad. Admit The primary encounter diagnosis was Cardiorenal syndro me with renal failure, stage 5 chronic kidney disease or end stage diony l disease, with heart failure (HCC). Diagnoses of Hypervol emia, unspecified hypervolemia type and Hyperkalemia were also pertinent to this visit. Mitra Mckeon MD 10/06/18 1455 d-dimer, innovlazaro on 2018-10-06 D-Dimer, Innovance 1.76 0.00-0.50 mg/L High 10-06-2018 [facility] ([id number]) Comment: Result Comment: Innovance D- Dimer values of <0.50 mg/L FEU can be used in combination with a pre-test probability model (e.g. Well's) to exclude pulmonary embolis m (PE) disease, as well as an aid in the diagnosis of deep vein thrombosis (DVT). Performed By: #### DDI2 #### [employer] [address] [place] [address] cr chest portable o n 2018-10-06 CR Chest Patient Name: ELIA WESTON [place] (0 0000) Diagnostic Radiology Exam Date/Time 10/06/2018 12:30:30 EST Exam CR Chest Portable Ordering Physician CHIDI ANDERSON KRISITN A. Accession Number [id number] CPT4 Codes 73020 () Reason For Exam CP, SOB Report EXAM TYPE: RADIOLOGIC EXAMINATION, CHEST, SINGLE VIEW FRONTA L (CXR SINGLE VIEW) EXAM DATE AND TIME: 10/06/2018 12:30 PM EST INDICATION: As pain, shortness of breath COMPARISON: None available. TECHNIQUE: A single frontal view of the thorax was obtained and reviewed. Special views: None. FINDINGS: 1. Lines/Tubes/Devices/Hardware: None. 2. Lungs: No consolidation. Pulmonary vascular congestion wi thout overt edema. 3. Pleura: No pneumothorax or large pleural effusions. 4. Heart and mediastinum: Normal cardiomediastinal contours given portable AP technique. 5. Osseous structures: Dextroconvex curvature of the lower t horacic spine. IMPRESSION: No consolidation. Pulmonary vascular congestion without over t edema. No large effusion. Report Dictated on Final Dictating Physician: MD THOMPSON NEIL Signed Date and Time: 10/06/2018 12:53 pm Signed by: MD THOMPSON NEIL Transcribed Date and Time: 10/06/2018 12:54 basic metabolic panel on 2018-10-06 Calcium [Mass/Vol] 8.2 8.4-10.4 mg/dL Low 10-06-2018 [employer] ([id number]) Comment: Performed By: #### HEMDF, BM P3, BNP3, TROPN, TSH5 #### [employer] [address] [place] [address] Glucose [Mass/Vol] 105 70-100 mg/dL High 10-06-2018 [facility] ([id number]) Comment: Performed By: #### HEMDF, BM P3, BNP3, TROPN, TSH5 #### [facility] [address] [place] [address] Urea nitrogen [Mass/Vol] 48 7-20 mg/dL High 10-06 [facility] ([id number]) Comment: Performed By: #### HEMDF, BM P3, BNP3, TROPN, TSH5 #### [facility] [address] [place] [address] Anion gap [Moles/Vol] 12 Normal 10-06-19 [facility] ([id number]) Comment: Performed By: #### HEMDF, BM P3, BNP3, TROPN, TSH5 #### [facility] [address] [place] [address] CO2 [Moles/Vol] 33 22-30 mmol/L High 10-06-2018 [facility] ([id number]) Comment: Performed By: #### HEMDF, BM P3, BNP3, TROPN, TSH5 #### [facility] [address] [place] [address] Creatinine [Mass/Vol] 10.87 0.52-1.25 mg/dL High 10-06-19 19 [facility] ([id number]) Comment: Performed By: #### HEMDF, BM P3, BNP3, TROPN, TSH5 #### [facility] [address] [place] [address] GFR/1.73 sq M predicted 6.5 >60 mL/min Normal 2018 [facility] MDRD (S/P/Bld) (77808) [Vol rate/Area] Comment: Performed By: #### HEMDF, BM P3, BNP3, TROPN, TSH5 #### [facility] [address] [place] [address] GFR/1.73 sq M predicted 5.4 >60 mL/min Normal 2018 [facility] among non-blacks MDRD ([id number]) (S/P/Bld) [Vol rate/Area] Comment: Result Comment: Source- MDRD equation with creatinine calibration to IDMS(NKDEP) eGFR not recommended for edilberto g dose adjustment Performed By: #### HEMDF, BM P3, BNP3, TROPN, TSH5 #### [facility] [address] [place] [address] Potassium [Moles/Vol] 5.5 3.5-5.1 mmol/L High 10-06-19 19 [facility] ([id number]) Comment: Performed By: #### HEMDF, BM P3, BNP3, TROPN, TSH5 #### [facility] [address] [place] [address] Sodium [Moles/Vol] 141 135-145 mmol/L Normal 10-06-2018 [facility] ([id number]) Comment: Performed By: #### HEMDF, BM P3, BNP3, TROPN, TSH5 #### [facility] [address] [place] [address] Chloride [Moles/Vol] 96 98-107 mmol/L Low 9 [facility] ([id number]) Comment: Performed By: #### HEMDF, BM P3, BNP3, TROPN, TSH5 #### [employer] [facility] [address] [place] [address] progress on 2018-08 Protein mass conc HNO ID: [id number] Normal Germain Gruber Author: Silviano Castanon [facility] Service: (none) (000 00) Author Type: Physician Type: Progress Notes Filed: 09/12/2018 4:14 PM Note Text: This is a patient who I last saw on the [facility] office and w e saw him there was schedule him for his upper extremity venograms. So mehow this got confused and did not get ordered appropriately or he just di dn't show up as I do recall that he was on my schedule for a venogram lew n in interventional radiology and he did not show. This is unlike this patient is she seems relatively reliable and really wants to get his catheter out. 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 He is currently dialyzing through a tunneled femoral catheter. At this point we once again go to the process of explaining venography and wh at we're going to do and I tell him that we are going to set this up for hi m when I'm down in interventional radiology next [...] a very swollen arm based on the f act that we would be putting a fistula in proximal to a known obstructio n. We are going to plan on venography for the patient once that is don e we will follow-up with him at the time of the venogram to discuss hi s surgery.I spent 15 minutes in the visit, with more than 50% of the tot al ctce-qb-qqvo time of the visit in counseling / coordination of care. cnov on 2018-09-10 CNOV Office Visit (AGVASACC) Normal 2017 [facility] ELIA Alberts ([id number]) 1980 M Medical Date Time Provider Department Center 09/10/18 1:00 PM SILVIANO BARR [facility] ([id number]) During your visit today, we recorded the following informati on about you: Pulse Respiration Blood pressure Weight 78/minute 18/minute 124/68 128.4 kg Height 1.778 m Silviano Barr MD 09/12/2018 4:14 PM Signed This is a patient who I last saw on the [facility] office and we saw him there was schedule him for his upper extremity venograms. Somehow this got confused and did not get ordered appropri ately or he just didn't show up as I do recall that he was on my schedule for a venogram down in intervent ional radiology and he did not show. This is unlike this patien t is she seems relatively reliable and really wants to get his catheter out. 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 He is currently dialyzing throug h a tunneled femoral catheter. At this point we once again go to the process of explain ing venography and what we're going to do and I tell him that we are going to set th is up for him when I'm down in interventional radiology next week and then at that point I will discuss with him what I thin k are his options for new upper extremity access. I caution him that if we do not get a good idea was going on with his central venous obstruction then we could well be in the situation where we actually give him a very swollen arm based on the fact that we would be putting a fistula in proximal to a known obstructi on. We are going to plan on venography for the patient once that is done we will follow-up with him at the time of the venogram to discuss his surg ronit.I spent 15 minutes in the visit, with more than 50% of the total face-to-fac e time of the visit in counseling / coordination of care. Referring Provider: AVINASH MARTINEZ [[id number]] Allergies As of Date: 09/10/2018 (No Known Allergies) Date Reviewed: 09/10/2018 Reviewed by: Princess Howard LPN - Fully Assessed Reason for Visit: Chronic Kidney Disease [4078] Cmt: Elia is rfd back by Ceferino salazar for dialysis access. Vein mapping done 09/09/18 Reason For Visit History Recorded Visit Diagnosis:ESRD (end stage renal disease) on dialysis [ N18.6, Z99.2] Order(s):IR VENOGRAM EXTREMITY BILAT [[id number]] Order #: [id number] Prescriptions as of 09/10/2018 Sig: CARVEDILOL 3.125 MG TABLET Take 3.125 mg by mouth twice * SENSIPAR 60 MG TABLET Take 1.5 tablets by mouth onc* SEVELAMER CARBONATE 800 MG TA* Take 2 tablets by mouth three * Patient not taking: Reported on 07/10/2018 WALKER [...] left shoulder [M75.82] INVALID FOR* NO SHOW [640726] INVALID FOR* Mass of left thigh [R22.42] [...] Status:Closed by SILVIANO BARR MD on 09/12/18 us vein mapping for avf placement on 2018-09-09 US VEIN MAPPING FOR Performed at [facility] Normal 09-09-2018 [facility] AVF PLACEMENT APPROVED BY: Deng Smith MD [facility] ([id number]) EXAM TITLE: VEIN MAPPING OF THE RIGHT [...] the radial and ulnar aspect of the f orearms were evaluated. The right and left brachial, radial and ulnar arteries were imaged. There is intraluminal acting material within a tubular structure along the radial aspect of the left forearm. 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 There is also intral uminal echogenic material th roughout the right cephalic vein. This corresponds to a failed fistula in the right upper arm. The remainder of the venous structures show no intraluminal echogenic material. The remainder of the venous structures demonstrated normal compressibility throughout their course. Doppler analysis shows spontaneous flow with normal phasicity at all levels. Vessel size and depths a re as indicated on the vein mapping worksheet. The right and left brachial, radial and ulnar arteries all demonstrate normal arterial Doppler waveforms. Vessel size is indicated on the vein mapping worksheet. IMPRESSION: 1. Thrombosis throughout the failed fistulas, one along the radial aspect of the left forearm and the other which utilized the right cephalic vein. 2. There is no other evidenc e of deep venous thrombosis within either the right or left upper extremity. Vessel size and depths are as indicated on the vein mapping worksheet. progress on 2018-06 Protein mass conc HNO ID: [id number] Normal Germain General Author: Silviano Castanon [facility] Service: (none) (000 00) Author Type: Physician Type: Progress Notes Filed: 07/10/2018 1:49 PM Note Text: Patient is back to discuss further dialysis access. He is cu rrently dialyzing through a femoral tunneled catheter. He is also ac tively in the process of being evaluated for transplant. I encouraged him to make his transplant appointments his priority at this point in time. I also discussed different options for new access for him his left arm we know has occlusion centrally and he is uncertain if he has centra l occlusion on the right although he thinks [...] really need to do is find out w hat the status of his right subclavian vein is in the only way I can really think to do this is to get a venogram on his right arm. I discussed this with the patient and he is amenable to going ahead and proceeding wit h a venogram and therefore I am going to try to set him up on a for a venogram of the right arm to assess central venous patency. The patient states that he is willing to do this and requests that I per form his procedures and I tell him that I would be happy to do so. We will try to go ahead and get this set up in the very near future so we c an assess the patency of his arm and if I am capable of being the one to d o the venogram I can discuss with him at that point in time what options we might have and save him another office visit.I spent 15 minutes in the visit, with more than 50% of the total uqzy-dh-psft time of the visit in counseling / coordination of care. cnov on 2018-07-10 CNOV Office Visit (AGMIL) Normal 8 [facility] ELIA Alberts ([id number]) 1980 M Medical Date Time Provider Department Center 07/10/18 1:15 PM SILVIANO BARR ([id number]) During your visit today, we recorded the following informati on about you: Pulse Respiration Blood pressure Weight 88/minute 18/minute 142/70 128.4 kg Height 1.778 m Silviano Barr MD 07/10/2018 1:49 PM Signed Patient is back to discuss further dialysis acce ss. He is currently dialyzing through a femoral tunneled catheter. He is also actively in the process of being evaluated for transplant. I encouraged him to make his transplant appointments his priority at this point in time. I also di scussed different options for new access for h im his left arm we know has occlusion centrally and he is uncertain if he has central occlusion on the right a lthough he thinks that may be the case. I talked about the fact that if we d o any type of arm graft or even new fistula they could be fraught with the complications of arm swelling but probably we may need to accept this risk if we aren't going to get new access in his upper extremity. One t alfie that we really need to do is find out what the status of his right subclavian vein is in the o nly way I can really think to do this is t o get a venogram on his right arm. I discussed this with the patient and he is amenable to going ahead and proce eding with a venogram and therefore I am going to try to set him up on a nondialysis day for a venogram of the right arm to assess central venous patency . The patient states that he is willing [...] of being the one to do the venog ishan I can discuss with him at that point in time what options we might have and save him a nother office visit.I spent 15 minutes in the visit, with more than 50% of the total vefg-mz-cfwm time of the visit in counseling / coordination of care. Referring Provider: AVINASH MARTINEZ [[id number]] Allergies As of Date: 07/10/2018 (No Known Allergies) Date Reviewed: 07/10/2018 Reviewed by: Silviano Barr - Fully Assessed Reason for Visit: Chronic Kidney Disease [4078] Cmt: Elia is here to justin white dialysis access. Vein mapping done 06/10/18. Primary Visit Diagnosis:ESRD (end stage renal disease) on di alysis [N18.6, Z99.2] Order(s):IR VENOGRAM EXTREMITY UNILAT (AK) [[id number]] Order # : [id number] Prescriptions as of 07/10/2018 Sig: SENSIPAR 60 MG TABLET Take 1.5 tablets by mouth onc* CARVEDILOL 3.125 MG TABLET Take 3.125 mg by mouth twice * WALKER 1 Each once daily. M25.561, E* SEVELAMER CARBONATE 800 MG TA* Take 2 tablets by mouth three * Patient not taking: Reported on 07/10/2018 Medication notes this encounter WALKER >> Princess Howard LPN 07/10/2018 1:31 PM >> LOYD PRINCESS STRINGER FriJul 10, 2018 1:31 PM Not using [...] left shoulder [M75.82] INVALID FOR* NO SHOW [673928] INVALID FOR* Mass of left thigh [R22.42] [...] Status:Closed by SILVIANO BARR MD on 07/10/18 No panel information on 2018-07-09 BW 4,4 Invalid Interpretation 018 [facility] Code DPB1* DPB11 04:01 Invalid Interpretation 07-09 [facility] Code DPB1*DPB1A 01:01 Invalid Interpretation 2017 [facility] Code DQA1* 1 Invalid Interpretation 018 [facility] Code DQA1*DQA11 02:01 Invalid Interpretation 2017 [facility] Code DQB1 2,5 Invalid Interpretation 10-11-2 018 [facility] Code DQB1* 2 Invalid Interpretation [facility] Code DQB1* - DQB11 5 Invalid Interpretation [facility] Code DR 7,14 Invalid Interpretation [facility] Code DR51,52,53 52,,,53,, Invalid Interpretation 2017 [facility] Code DRB1* 7 Invalid Interpretation [facility] Code DRB1* - DRB11 14 Invalid Interpretation [facility] Code DRB3* 2 Invalid Interpretation [facility] Code DRB4* 1 Invalid Interpretation [facility] Code HLA A* 2 Invalid Interpretation [facility] Code HLA A* - HLAAA 36 Invalid Interpretation [facility] Code HLA B* 53 Invalid Interpretation [facility] Code HLA B* - HLABBB 57 Invalid Interpretation 1 [facility] Code HLA C* 4 Invalid Interpretation [facility] Code HLA C* - HLACC 6 Invalid Interpretation [facility] Code HLA INTERPRETATION LISTED AMBIGUITIES Invalid Inte rpretation 07-09-2018 [facility] ARE NOT EXCLUDED: Code DPB1*01:01 DPB1*459:01 DPB1*01:01 DPB1*464:01 DPB1*01:01 DPB1*534:01 DPB1*01:01 DPB1*615:01 DPB1*01:01 DPB1*618:01 DPB1*01:01 DPB1*670:01 DPB1*01:01 DPB1*677:01 DPB1*162:01 DPB1*350:01 XX3:=:04:01/04:01N Comment: Testing performed by SSOP (s equence specific oligonucleotide probe methodology). Additional solomon ting may be performed by SSP (sequence specific primer), and or SBT (sequenc e based typing) methodologies.Some of the reagents used for testing in the Clinical Histocompatibility Laboratory have yet to be approved by the A. Our certification by CLIA to perform high complexity tests allows us to use these reagents in the context of a stringent QC program, and ob viates the need for FDA approval.Testing performed by the [facility]. SANDRA number: [id number]. CLIA number: [id number], Director: Ji De La Cruz, PhD, D([facility]). C 4,6 Invalid Interpretation Code [facility] B 53,57 Invalid Interpretation Code [facility] A 2,36 Invalid Interpretation Code [facility] No panel information on 2018-07-07 AB SPECIFICITY Antibody Specificity Invalid Interp retation 07-07-2018 [facility] CLASS COMMENT testing performed by [facility]. Comment: Some of the reagents used fo r testing in the Clinical Histocompatibility Laboratory have yet to be ap proved by the FDA. Our certification by CLIA to perform high complexity solomon ts allows us to use these reagents in the context of a stringent QC pr ogram, and obviates the need for FDA approval.Testing performed b y the [facility] Clinical Histocompatibility Laboratory. [facility] number: [id number]. CLIA number: [id number], Director: Ji De La Cruz, PhD, D([facility]). ANTIBODY SPECIFICITY DP05:01/A*02:02 (MFI= Invalid 07-07-2018 [facility] INTERPRETATION 2160) Interpretation Code CLASS I None Detected Invalid 07-07-2018 [facility] SPECIFICITIES Interpretation Code CLASS II None Detected Invalid 07-07-2018 [facility] SPECIFICITIES Interpretation Code HLA Ab (S) 10 0 % High 07-07-2018 [facility] Interpretation and Abnormal Invalid 07-07-2018 [facility] review of laboratory Interpretation Code results varicella immune status igg antibody on 2018-07-06 Varicella Immune Status POSITIVE POSITIVE Normal 2017 [facility] IgG An [facility] ([id number]) Comment: Result Comment: Prior exposure to the varice lla zoster virus may cause measurable varicella zoster IgG antibody. Performed By: #### CBCDFC, A LB, ENZ3, CHM7, BILTO, CA, GGTB, URICB, IPB, MGO, TP, OSMO, PTPTT, ALCOSU, HCAB, HSVM, HIV, CMVG, IPTH, SERDRG, HBSAB, HBSAG, HBCBG, EBVG, HSVG12, VZISB #### [facility] [address] [place] [address] [facility] [address] [place] [address] Varicella Immune Status IgG >8.0 Normal [facility] Ce nter ([id number]) Comment: Result Comment: THIS IS A QU ALITATIVE ASSAY. The numeric value is not necessarily indicative of th e amount of anti-Measles, Mumps, Rubella, or VZV IgG antibody present. Result s should be interpreted in conjunction with clinical and epidemological data. Performed By: #### CBCDFC, A LB, ENZ3, CHM7, BILTO, CA, GGTB, URICB, IPB, MGO, TP, OSMO, PTPTT, ALCOSU, HCAB, HSVM, HIV, CMVG, IPTH, SERDRG, HBSAB, HBSAG, HBCBG, EBVG, HSVG12, VZISB #### [facility] [address] [place], [place] [id number] [facility] [address] [place] [address] hsv i&ii igg antibody on 2018-07-06 HSV 1 IgG Antibody POSITIVE Negative Abnormal 07-06-2018 [facility] ([id number]) Comment: Performed By: #### CBCDFC, A LB, ENZ3, CHM7, BILTO, CA, GGTB, URICB, IPB, MGO, TP, OSMO, PTPTT, ALCOSU, HCAB, HSVM, HIV, CMVG, IPTH, SERDRG, HBSAB, HBSAG, HBCBG, EBVG, HSVG12, VZISB #### [facility] [address] [place] [id number] [place] [address] [place] [address] HSV 2 IgG Antibody Negative Negative Normal 07-06-2018 [facility] nter ([id number]) Comment: Performed By: #### CBCDFC, A LB, ENZ3, CHM7, BILTO, CA, GGTB, URICB, IPB, MGO, TP, OSMO, PTPTT, ALCOSU, HCAB, HSVM, HIV, CMVG, IPTH, SERDRG, HBSAB, HBSAG, HBCBG, EBVG, HSVG12, VZISB #### U [facility] [address] [place] [address] [facility] [address] [place] [address] hep b surface ag on 2018-07-06 Hep B Surface Ag Negative Negative Normal 07-06-2018 [facility] Ce nter ([id number]) Comment: Performed By: #### CBCDFC, A LB, ENZ3, CHM7, BILTO, CA, GGTB, URICB, IPB, MGO, TP, OSMO, PTPTT, ALCOSU, HCAB, HSVM, HIV, CMVG, IPTH, SERDRG, HBSAB, HBSAG, HBCBG, EBVG, HSVG12, VZISB #### [facility] [address] [place] [address] [place] [address]57 hep b surface ab on 2018-07-06 Hep B Surface Ab POSITIVE Negative Abnormal 07-06-2018 [facility] Ce [facility] ([id number]) Comment: Performed By: #### CBCDFC, A LB, ENZ3, CHM7, BILTO, CA, GGTB, URICB, IPB, MGO, TP, OSMO, PTPTT, ALCOSU, HCAB, HSVM, HIV, CMVG, IPTH, SERDRG, HBSAB, HBSAG, HBCBG, EBVG, HSVG12, VZISB #### [facility] [address] [place] [address] [address] [place] [address] hep b core ab,total (igg+igm) on 2018-07-06 Hep B Core Ab,Total Negative Negative Normal 07-06-2018 [facility] (IgG+IgM) [facility] ([id number]) Comment: Performed By: #### CBCDFC, A LB, ENZ3, CHM7, BILTO, CA, GGTB, URICB, IPB, MGO, TP, OSMO, PTPTT, ALCOSU, HCAB, HSVM, HIV, CMVG, IPTH, SERDRG, HBSAB, HBSAG, HBCBG, EBVG, HSVG12, VZISB #### [facility] [address] [place] [address] [facility] [address] [place] [address] ebv vca igg antibody on 2018-07-06 EBV VCA IgG Antibody POSITIVE Negative Abnormal 8 [facility] ([id number]) Comment: Performed By: #### CBCDFC, A LB, ENZ3, CHM7, BILTO, CA, GGTB, URICB, IPB, MGO, TP, OSMO, PTPTT, ALCOSU, HCAB, HSVM, HIV, CMVG, IPTH, SERDRG, HBSAB, HBSAG, HBCBG, EBVG, HSVG12, VZISB #### [facility] [address] [place] [address] [place] [address] intact pth on 07-05 INTACT PTH 327.2 14.0-72.0 pg/mL High 07-05-2018 [facility] (00 000) Comment: Performed By: #### CBCDFC, A LB, ENZ3, CHM7, BILTO, CA, GGTB, URICB, IPB, MGO, TP, OSMO, PTPTT, ALCOSU, HCAB, HSVM, HIV, CMVG, IPTH, SERDRG, HBSAB, HBSAG, HBCBG, EBVG, HSVG12, VZISB #### [facility] [address] [place] [id number] [address] [place] [address] blood drug screen o n 2018-07-05 BLOOD DRUG SCREEN For Medical Purposes Normal 1 [facility] Only, Non-forensic, [facility] screen results are ( 42897) presumptive. No confirmatory testing will follow. Comment: Result Comment: This Liquid Chromatography Mass Spectrometry (LC/MS/MS) test was developed and its performance characteristics determined by [facility] at [facility]. It has not been cleared or a pproved by the FDA. The laboratory is regulated under CLIA as qualified to perform high-complexity testing. This test is used for clinical purposes. It should not be regarded as investigational or for r esearch. The following drugs with the ir lowest level of detection in ng/ml(LOD) are included in this screen: 6 Monoacetylmorphine(300), 7 Aminoflunitrazepam(25), 7 Aminoclonazepam(50), Alphahydroxytriazolam(400), Alphahydrozyalprazolam(200), Alprazolam(50), Amitriptyline(50), Amphetamine(250), Atenolol(500), Barbiturates(1000), Benzoyle cgonine(50), Buprenorphine(50), Bupropion(25), Caffeine(38553), Chlordiazep oxide(50), Chlorpheniramine(100), Chlorpromazine(50), Citalopram(100), Clonazepam(200), Cocaine(25), Codeine(200), Cotinine(500), Desakylflurazepam(50), Desip ramine(50), Desmethyldoxepin(100), Dextromethorphan(100), Diazepam(100), Dihydrocodeine(100), Diltazem(50), Diphenhydramine(100), Doxepin(100), EDDP/methadone(100), Ephedri ne/Pseudoephedrine(100), Fentanyl(25), Flunitrazepam(100), Fluoxetine(200), Flurazepam(50), Gabapentin(1500), Haloperido l(25), Hydrocodone(100), Hydromorphone(200), Imipramine(50), Ketamine(25), Lidocaine(25), Lorazepam(100), Lysergide(LSD)(25), Maprotiline(200), MDA(250), MDMA(250), Meperidine(50), Methadone(50), Methamphetamine(500), Methylphenidate(50), Metoprolol(50), Morphine(200), Nalbuphine(50), Naloxone(200 ), Norbuprenorphine(300), Nordiazepam(100), Norfentanyl(100), Norpropoxyphene(50), Nortriptyline(50), Olanzapine(200), Oxazepam(200), Oxycodone(100), Oxymorphone(200), Phencyclidine(PCP)(25), Phen iramine(25), Pregabalin(1500), Promethazine(50), Propoxyphene(100), Propanolol(50) Quetiapine(25), Quinidine(50 0), Ranitidine(500), Risperidone(100), Sertraline(50), Temazepam(100), Thioridazine (100), Tramadol(50), Trazodone(25, Triazolam(100), Venlafaxine(50), Verapamil(100), Zolpidem(200) Performed By: #### CBCDFC, A LB, ENZ3, CHM7, BILTO, CA, GGTB, URICB, IPB, MGO, TP, OSMO, PTPTT, ALCOSU, HCAB, HSVM, HIV, CMVG, IPTH, SERDRG, HBSAB, HBSAG, HBCBG, EBVG, HSVG12, VZISB #### [place] [address] BLOOD DRUGS DETECTED NONE DETECTED Normal 07-05 [facility] nter ([id number]) Comment: Performed By: #### CBCDFC, A LB, ENZ3, CHM7, BILTO, CA, GGTB, URICB, IPB, MGO, TP, OSMO, PTPTT, ALCOSU, HCAB, HSVM, HIV, CMVG, IPTH, SERDRG, HBSAB, HBSAG, HBCBG, EBVG, HSVG12, VZISB #### [id number] [address] [address] uric acid on 2017-09 005 Urate mass conc 4.3 3.5-7.0 mg/dL Normal 07-03-2018 [facility] Ce nter ([id number]) Comment: Performed By: #### GILMER, A LB, ENZ3, CHM7, BILTO, CA, GGTB, URICB, IPB, MGO, TP, OSMO, PTPTT, ALCOSU, HCAB, HSVM, HIV, CMVG, IPTH, SERDRG, HBSAB, HBSAG, HBCBG, EBVG, HSVG12, VZISB #### U [facility] [address] [place] [address] [address] [place] [address] type and screen - op on 2018-07-03 Type and Screen - ABO/RH(D): B POSITIVE Normal 07-03-2018 [facility] OP ANTIBODY SCREEN: NEGATIVE [facility] ([id number]) Comment: Performed By: #### GILMER, A LB, ENZ3, CHM7, BILTO, CA, GGTB, URICB, IPB, MGO, TP, OSMO, PTPTT, ALCOSU, HCAB, HSVM, HIV, CMVG, IPTH, SERDRG, HBSAB, HBSAG, HBCBG, EBVG, HSVG12, VZISB #### [facility] [address] [place] [address] [place] [address] total protein on 16-07-05 Protein mass conc 9.2 6.4-8.3 g/dL High 07-03-2018 O [facility] Ce [facility] (38912) Comment: Performed By: #### SHEC, A LB, ENZ3, CHM7, BILTO, CA, GGTB, URICB, IPB, MGO, TP, OSMO, PTPTT, ALCOSU, HCAB, HSVM, HIV, CMVG, IPTH, SERDRG, HBSAB, HBSAG, HBCBG, EBVG, HSVG12, VZISB #### U [facility] [address] [place] [address] [address] [place] [address] pt*ptt on 2018-10-0 5 aPTT Coag time (Bld) 31.7 24.0-34.3 sec Normal 8 [facility] (74541) Comment: Performed By: #### GILMER, A LB, ENZ3, CHM7, BILTO, CA, GGTB, URICB, IPB, MGO, TP, OSMO, PTPTT, ALCOSU, HCAB, HSVM, HIV, CMVG, IPTH, SERDRG, HBSAB, HBSAG, HBCBG, EBVG, HSVG12, VZISB #### [facility] [address] [place] [address] [place] [address] INR Coag RelTime (PPP) 1.2 0.9-1.1 {INR} High 018 [facility] nter ([id number]) Comment: Performed By: #### GILMER, A LB, ENZ3, CHM7, BILTO, CA, GGTB, URICB, IPB, MGO, TP, OSMO, PTPTT, ALCOSU, HCAB, HSVM, HIV, CMVG, IPTH, SERDRG, HBSAB, HBSAG, HBCBG, EBVG, HSVG12, VZISB #### [facility] [address] [place] [address] [place] [address] Prothrombin time (PT) Coag 15.6 11.9-14.2 sec High [facility] time (PPP) [facility] ([id number]) Comment: Performed By: #### GILMER, A LB, ENZ3, CHM7, BILTO, CA, GGTB, URICB, IPB, MGO, TP, OSMO, PTPTT, ALCOSU, HCAB, HSVM, HIV, CMVG, IPTH, SERDRG, HBSAB, HBSAG, HBCBG, EBVG, HSVG12, VZISB #### [facility] [address] [place], [place] [id number] [facility] [address] [place] [address] osmolality on 07-03 Osmolality 301 278-305 mOsm/kg Normal 07-03-2018 [facility] (00 000) Comment: Performed By: #### GILMER, A LB, ENZ3, CHM7, BILTO, CA, GGTB, URICB, IPB, MGO, TP, OSMO, PTPTT, ALCOSU, HCAB, HSVM, HIV, CMVG, IPTH, SERDRG, HBSAB, HBSAG, HBCBG, EBVG, HSVG12, VZISB #### [facility] [address] [place] [address] [place] [address] magnesium on 2017-09 Magnesium mass conc 2.3 1.6-2.6 mg/dL Normal 07-03-2018 [facility] Ce nter ([id number]) Comment: Performed By: #### GILMER A LB, ENZ3, CHM7, BILTO, CA, GGTB, URICB, IPB, MGO, TP, OSMO, PTPTT, ALCOSU, HCAB, HSVM, HIV, CMVG, IPTH, SERDRG, HBSAB, HBSAG, HBCBG, EBVG, HSVG12, VZISB #### [facility] [address] [place] [address] [place] [address] inorganic phosphate on 2018-07-03 Inorg Phosphate 7.2 2.2-4.6 mg/dL High 07-03-2018 [facility] Ce nter (85144) Comment: Performed By: #### GILMER, A LB, ENZ3, CHM7, BILTO, CA, GGTB, URICB, IPB, MGO, TP, OSMO, PTPTT, ALCOSU, HCAB, HSVM, HIV, CMVG, IPTH, SERDRG, HBSAB, HBSAG, HBCBG, EBVG, HSVG12, VZISB #### [facility] [address] [place] [address] [place], [place] [id number] hsv i/ii igm antibody on 2018-07-03 HSV I/II IgM Antibody Negative Negative Normal 07-03-20 18 [facility] ([id number]) Comment: Performed By: #### CBCDFC, A LB, ENZ3, CHM7, BILTO, CA, GGTB, URICB, IPB, MGO, TP, OSMO, PTPTT, ALCOSU, HCAB, HSVM, HIV, CMVG, IPTH, SERDRG, HBSAB, HBSAG, HBCBG, EBVG, HSVG12, VZISB #### [facility] [address] [place] [address] [place] [address] hiv-1/hiv-2 ab with p24 antigen on 2018-07-03 HIV-1/HIV-2 AB with NONREACTIVE NONREACTIVE Normal 2017 [facility] p24 Antige [facility] ([id number]) Comment: Performed By: #### CBCDFC, A LB, ENZ3, CHM7, BILTO, CA, GGTB, URICB, IPB, MGO, TP, OSMO, PTPTT, ALCOSU, HCAB, HSVM, HIV, CMVG, IPTH, SERDRG, HBSAB, HBSAG, HBCBG, EBVG, HSVG12, VZISB #### [facility] [address] [place] [address] [address] [place] [address] hepatitis c antibody on 2018-07-03 Hepatitis C Antibody Negative Negative Normal 8 [facility] (35623) Comment: Performed By: #### CBCDFC, A LB, ENZ3, CHM7, BILTO, CA, GGTB, URICB, IPB, MGO, TP, OSMO, PTPTT, ALCOSU, HCAB, HSVM, HIV, CMVG, IPTH, SERDRG, HBSAB, HBSAG, HBCBG, EBVG, HSVG12, VZISB #### [facility] [address] [place] [address] ggt on 2018-07-03 Gamma glutamyl transferase 19 8-64 U/L Normal [facility] enzyme act/vol [facility] (46236) Comment: Performed By: #### CBCARCHIEC, A LB, ENZ3, CHM7, BILTO, CA, GGTB, URICB, IPB, MGO, TP, OSMO, PTPTT, ALCOSU, HCAB, HSVM, HIV, CMVG, IPTH, SERDRG, HBSAB, HBSAG, HBCBG, EBVG, HSVG12, VZISB #### [facility] [address] [place] [address] [place] [address] cmv igg antibody on 2018-07-03 CMV IgG Antibody POSITIVE Negative Abnormal 07-03-2018 Oh [facility] Ce nter (55188) Comment: Performed By: #### MIRIAMDFC, A LB, ENZ3, CHM7, BILTO, CA, GGTB, URICB, IPB, MGO, TP, OSMO, PTPTT, ALCOSU, HCAB, HSVM, HIV, CMVG, IPTH, SERDRG, HBSAB, HBSAG, HBCBG, EBVG, HSVG12, VZISB #### [facility] [address] [place] [address] [place] [address] chem 7 on 5 Anion gap molar conc 21 7-17 mmol/L High 8 [facility] Ce nter ([id number]) Comment: Performed By: #### CBCDFC, A LB, ENZ3, CHM7, BILTO, CA, GGTB, URICB, IPB, MGO, TP, OSMO, PTPTT, ALCOSU, HCAB, HSVM, HIV, CMVG, IPTH, SERDRG, HBSAB, HBSAG, HBCBG, EBVG, HSVG12, VZISB #### [facility] [address] [place] [address] [place] [address] Chloride molar conc 91 98-108 mmol/L Low 07-03-2018 [facility] nter (28937) Comment: Performed By: #### CBCDFC, A LB, ENZ3, CHM7, BILTO, CA, GGTB, URICB, IPB, MGO, TP, OSMO, PTPTT, ALCOSU, HCAB, HSVM, HIV, CMVG, IPTH, SERDRG, HBSAB, HBSAG, HBCBG, EBVG, HSVG12, VZISB #### [facility] [address] [place] [address] [address] [place] [address] CO2 molar conc 27 22-30 mmol/L Normal 07-03-2018 [facility] (00 000) Comment: Performed By: #### CBCDFC, A LB, ENZ3, CHM7, BILTO, CA, GGTB, URICB, IPB, MGO, TP, OSMO, PTPTT, ALCOSU, HCAB, HSVM, HIV, CMVG, IPTH, SERDRG, HBSAB, HBSAG, HBCBG, EBVG, HSVG12, VZISB #### [facility] [address] [place] [address] [place] [address] Creatinine mass 10.57 0.70-1.30 mg/dL Critically high 07-03-20 18 [facility] Ce [facility]ter ([id number]) Comment: Result Comment: Critical CRE A result called to and read back by: RACHEL ROGERS at: 07/03/2018 13:50:3 5 by : [id number] Performed By: #### CBCDFC, A LB, ENZ3, CHM7, BILTO, CA, GGTB, URICB, IPB, MGO, TP, OSMO, PTPTT, ALCOSU, HCAB, HSVM, HIV, CMVG, IPTH, SERDRG, HBSAB, HBSAG, HBCBG, EBVG, HSVG12, VZISB #### [facility] [address] [place] [address] [place] [address] Est GFR, 7 >60 mL/min/1.73sqM Low 07-03-20 18 [facility] ([id number]) Comment: Performed By: #### CBCDFC, A LB, ENZ3, CHM7, BILTO, CA, GGTB, URICB, IPB, MGO, TP, OSMO, PTPTT, ALCOSU, HCAB, HSVM, HIV, CMVG, IPTH, SERDRG, HBSAB, HBSAG, HBCBG, EBVG, HSVG12, VZISB #### [facility] [address] [place] [address] [address] [place] [address] Est GFR,non 6 >60 mL/min/1.73sqM Low 07-03 [facility] ([id number]) Comment: Performed By: #### CBCDFC, A LB, ENZ3, CHM7, BILTO, CA, GGTB, URICB, IPB, MGO, TP, OSMO, PTPTT, ALCOSU, HCAB, HSVM, HIV, CMVG, IPTH, SERDRG, HBSAB, HBSAG, HBCBG, EBVG, HSVG12, VZISB #### [facility] [address] [place] [address] [address] [place] [address] Glucose mass conc 76 70-99 mg/dL Normal 07-03-2018 O [facility] Ce [facility]ter ([id number]) Comment: Performed By: #### CBCDFC, A LB, ENZ3, CHM7, BILTO, CA, GGTB, URICB, IPB, MGO, TP, OSMO, PTPTT, ALCOSU, HCAB, HSVM, HIV, CMVG, IPTH, SERDRG, HBSAB, HBSAG, HBCBG, EBVG, HSVG12, VZISB #### [facility] [address] [place] [address] [place] [address] Osmolality 292 278-305 mOsm/kg Normal 07-03-2018 [facility] (00 000) Comment: Performed By: #### CBCDFC, A LB, ENZ3, CHM7, BILTO, CA, GGTB, URICB, IPB, MGO, TP, OSMO, PTPTT, ALCOSU, HCAB, HSVM, HIV, CMVG, IPTH, SERDRG, HBSAB, HBSAG, HBCBG, EBVG, HSVG12, VZISB #### U [facility] [address] [place] [address] [address] [place] [address] Potassium molar conc 5.3 3.5-5.0 mmol/L High 8 [facility] Ce nter (11329) Comment: Performed By: #### SHEC, A LB, ENZ3, CHM7, BILTO, CA, GGTB, URICB, IPB, MGO, TP, OSMO, PTPTT, ALCOSU, HCAB, HSVM, HIV, CMVG, IPTH, SERDRG, HBSAB, HBSAG, HBCBG, EBVG, HSVG12, VZISB #### [facility] [address] [place] [address] [address] [place] [address] Sodium molar conc 134 133-143 mmol/L Normal 07-03-2018 O [facility] (43901) Comment: Performed By: #### CBCDFC, A LB, ENZ3, CHM7, BILTO, CA, GGTB, URICB, IPB, MGO, TP, OSMO, PTPTT, ALCOSU, HCAB, HSVM, HIV, CMVG, IPTH, SERDRG, HBSAB, HBSAG, HBCBG, EBVG, HSVG12, VZISB #### [facility] [address] [place] [id number] [place] [address] [place] [address] Urea nitrogen mass conc 38 7-22 mg/dL High 2017 [facility] nter ([id number]) Comment: Performed By: #### CBCDFC, A LB, ENZ3, CHM7, BILTO, CA, GGTB, URICB, IPB, MGO, TP, OSMO, PTPTT, ALCOSU, HCAB, HSVM, HIV, CMVG, IPTH, SERDRG, HBSAB, HBSAG, HBCBG, EBVG, HSVG12, VZISB #### [facility] [address] [place] [address] [address] [place] [address] Urea nitrogen/Creatinine mass 4 mg/mg Normal 07-03-2018 [facility] (98154) Comment: Performed By: #### CBCDFC, A LB, ENZ3, CHM7, BILTO, CA, GGTB, URICB, IPB, MGO, TP, OSMO, PTPTT, ALCOSU, HCAB, HSVM, HIV, CMVG, IPTH, SERDRG, HBSAB, HBSAG, HBCBG, EBVG, HSVG12, VZISB #### [facility] [address] [place] [address] [place] [address] cbc,platelet,differential - ccl on 2018-07-03 Abs Baso 0.05 <0.09 K/uL Normal 07-03-2018 [facility] (00 000) Comment: Performed By: #### CBCDFC, A LB, ENZ3, CHM7, BILTO, CA, GGTB, URICB, IPB, MGO, TP, OSMO, PTPTT, ALCOSU, HCAB, HSVM, HIV, CMVG, IPTH, SERDRG, HBSAB, HBSAG, HBCBG, EBVG, HSVG12, VZISB #### [facility] [address] [place] [address] [place] [address] Abs Eos 0.20 <0.55 K/uL Normal 07-03-2018 [facility] ([id number]) Comment: Performed By: #### CBCDFC, A LB, ENZ3, CHM7, BILTO, CA, GGTB, URICB, IPB, MGO, TP, OSMO, PTPTT, ALCOSU, HCAB, HSVM, HIV, CMVG, IPTH, SERDRG, HBSAB, HBSAG, HBCBG, EBVG, HSVG12, VZISB #### [facility] [address] [place] [address] [facility] [address] [place] [address] Abs [place] 0.91 0.30-0.82 K/uL High 07-03-2018 [facility] (00 000) Comment: Performed By: #### SHEC, A LB, ENZ3, CHM7, BILTO, CA, GGTB, URICB, IPB, MGO, TP, OSMO, PTPTT, ALCOSU, HCAB, HSVM, HIV, CMVG, IPTH, SERDRG, HBSAB, HBSAG, HBCBG, EBVG, HSVG12, VZISB #### [facility] [address] [place] [address] [address] [place] [address] Basophils/100 WBC (Bld) 0.9 % Normal 2017 [facility] nter ([id number]) Comment: Performed By: #### GILMER, A LB, ENZ3, CHM7, BILTO, CA, GGTB, URICB, IPB, MGO, TP, OSMO, PTPTT, ALCOSU, HCAB, HSVM, HIV, CMVG, IPTH, SERDRG, HBSAB, HBSAG, HBCBG, EBVG, HSVG12, VZISB #### [facility] [address] [place] [address] [place] [address] DIFFERENTIAL TYPE Electronic Differential Normal 07-03-2018 [facility] ([id number]) Comment: Performed By: #### CBCDFC, A LB, ENZ3, CHM7, BILTO, CA, GGTB, URICB, IPB, MGO, TP, OSMO, PTPTT, ALCOSU, HCAB, HSVM, HIV, CMVG, IPTH, SERDRG, HBSAB, HBSAG, HBCBG, EBVG, HSVG12, VZISB #### [facility] [address] [place] [address] [facility] [address] [place] [address] Eosinophils/100 WBC (d) 3.8 % Normal [facility] nter ([id number]) Comment: Performed By: #### CBCDFC, A LB, ENZ3, CHM7, BILTO, CA, GGTB, URICB, IPB, MGO, TP, OSMO, PTPTT, ALCOSU, HCAB, HSVM, HIV, CMVG, IPTH, SERDRG, HBSAB, HBSAG, HBCBG, EBVG, HSVG12, VZISB #### [facility] [address] [place], [place] [id number] [facility] [address] [place] [address] Hematocrit Volume Fraction 37.5 40.1-51.0 % Low [facility] ([facility]) [facility] ([id number]) Comment: Performed By: #### CBCDFC, A LB, ENZ3, CHM7, BILTO, CA, GGTB, URICB, IPB, MGO, TP, OSMO, PTPTT, ALCOSU, HCAB, HSVM, HIV, CMVG, IPTH, SERDRG, HBSAB, HBSAG, HBCBG, EBVG, HSVG12, VZISB #### [facility] [address] [place] [id number] [facility] [address] [place] [address] Hemoglobin mass conc 11.5 13.7-17.5 g/dL Low 8 [facility] ([facility]) [facility] ([id number]) Comment: Performed By: #### CBCDFC, A LB, ENZ3, CHM7, BILTO, CA, GGTB, URICB, IPB, MGO, TP, OSMO, PTPTT, ALCOSU, HCAB, HSVM, HIV, CMVG, IPTH, SERDRG, HBSAB, HBSAG, HBCBG, EBVG, HSVG12, VZISB #### [facility] [address] [place] [address] [address] [id number] IMMATURE GRANS % 0.4 % Normal 07-03-2018 [facility] ([phone]) Comment: Performed By: #### CBCDFC, A LB, ENZ3, CHM7, BILTO, CA, GGTB, URICB, IPB, MGO, TP, OSMO, PTPTT, ALCOSU, HCAB, HSVM, HIV, CMVG, IPTH, SERDRG, HBSAB, HBSAG, HBCBG, EBVG, HSVG12, VZISB #### [facility] [address] [place] [address] [address] [place] [address] IMMATURE GRANS ABSOLUTE <0.04 <0.04 Normal 2017 [facility] nter ([id number]) Comment: Performed By: #### CBCDFC, A LB, ENZ3, CHM7, BILTO, CA, GGTB, URICB, IPB, MGO, TP, OSMO, PTPTT, ALCOSU, HCAB, HSVM, HIV, CMVG, IPTH, SERDRG, HBSAB, HBSAG, HBCBG, EBVG, HSVG12, VZISB #### [place] [facility] [address] [place] [address] Lymphocytes #/vol (Bld) 1.48 1.32-3.57 K/uL Normal 2017 [facility] ([id number]) Comment: Performed By: #### CBCDFC, A LB, ENZ3, CHM7, BILTO, CA, GGTB, URICB, IPB, MGO, TP, OSMO, PTPTT, ALCOSU, HCAB, HSVM, HIV, CMVG, IPTH, SERDRG, HBSAB, HBSAG, HBCBG, EBVG, HSVG12, VZISB #### [facility] [address] [place] [address] [facility] [address] [place] [address] Lymphocytes/100 WBC (Bld) 27.9 % Normal [facility] nter ([id number]) Comment: Performed By: #### CBCDFC, A LB, ENZ3, CHM7, BILTO, CA, GGTB, URICB, IPB, MGO, TP, OSMO, PTPTT, ALCOSU, HCAB, HSVM, HIV, CMVG, IPTH, SERDRG, HBSAB, HBSAG, HBCBG, EBVG, HSVG12, VZISB #### [facility] [address] [place] [address] [facility] [address] [place] [address] MCV Entitic volume 89.9 79.0-92.2 fL Normal 07-03-2018 [facility] (RBC) [facility] ([id number]) Comment: Performed By: #### CBCDFC, A LB, ENZ3, CHM7, BILTO, CA, GGTB, URICB, IPB, MGO, TP, OSMO, PTPTT, ALCOSU, HCAB, HSVM, HIV, CMVG, IPTH, SERDRG, HBSAB, HBSAG, HBCBG, EBVG, HSVG12, VZISB #### [facility] [address] [place] [address] [facility] [address] [place] [address] Mean Cell Hgb 27.6 25.7-32.2 pg Normal 07-03-2018 [facility] nter ([id number]) Comment: Performed By: #### CBCDFC, A LB, ENZ3, CHM7, BILTO, CA, GGTB, URICB, IPB, MGO, TP, OSMO, PTPTT, ALCOSU, HCAB, HSVM, HIV, CMVG, IPTH, SERDRG, HBSAB, HBSAG, HBCBG, EBVG, HSVG12, VZISB #### [facility] [address] [place] [address] [facility] [address] [place] [address] Mean Cell Hgb 30.7 32.3-36.5 g/dL Critically low 07-03-2018 [facility] ([id number]) Comment: Performed By: #### CBCDFC, A LB, ENZ3, CHM7, BILTO, CA, GGTB, URICB, IPB, MGO, TP, OSMO, PTPTT, ALCOSU, HCAB, HSVM, HIV, CMVG, IPTH, SERDRG, HBSAB, HBSAG, HBCBG, EBVG, HSVG12, VZISB #### [facility] [address] [place] [address] [address] [place] [address] Monocytes/100 WBC (Bld) 17.1 % Normal 2017 [facility]ter ([id number]) Comment: Performed By: #### CBCDFC, A LB, ENZ3, CHM7, BILTO, CA, GGTB, URICB, IPB, MGO, TP, OSMO, PTPTT, ALCOSU, HCAB, HSVM, HIV, CMVG, IPTH, SERDRG, HBSAB, HBSAG, HBCBG, EBVG, HSVG12, VZISB #### [facility] [address] [place] [address] [address] [place] [address] NEUTROPHIL SEGMENTED 49.9 % Normal 8 [facility] (00 000) Comment: Performed By: #### CBCDFC, A LB, ENZ3, CHM7, BILTO, CA, GGTB, URICB, IPB, MGO, TP, OSMO, PTPTT, ALCOSU, HCAB, HSVM, HIV, CMVG, IPTH, SERDRG, HBSAB, HBSAG, HBCBG, EBVG, HSVG12, VZISB #### [facility] [address] [place] [place] [address] Nucleated RBC #/vol 0.0 0.0-0.2 /100 WBC Normal 07-03-2018 [facility] ([facility]) [facility] ([id number]) Comment: Performed By: #### CBCDFC, A LB, ENZ3, CHM7, BILTO, CA, GGTB, URICB, IPB, MGO, TP, OSMO, PTPTT, ALCOSU, HCAB, HSVM, HIV, CMVG, IPTH, SERDRG, HBSAB, HBSAG, HBCBG, EBVG, HSVG12, VZISB #### [facility] [address] [place] [address] [address] [place] [address] Platelet mean volume 11.2 9.4-12.4 fL Normal 8 [facility] Entitic volume ([facility]) [facility] ([id number]) Comment: Performed By: #### CBCDFC, A LB, ENZ3, CHM7, BILTO, CA, GGTB, URICB, IPB, MGO, TP, OSMO, PTPTT, ALCOSU, HCAB, HSVM, HIV, CMVG, IPTH, SERDRG, HBSAB, HBSAG, HBCBG, EBVG, HSVG12, VZISB #### [facility] [address] [place] [address] [address] [place] [address] Platelets #/vol (d) 211 163-337 K/uL Normal 07-03-20 18 [facility] nter ([id number]) Comment: Performed By: #### CBCDFC, A LB, ENZ3, CHM7, BILTO, CA, GGTB, URICB, IPB, MGO, TP, OSMO, PTPTT, ALCOSU, HCAB, HSVM, HIV, CMVG, IPTH, SERDRG, HBSAB, HBSAG, HBCBG, EBVG, HSVG12, VZISB #### [facility] [address] [place] [address] [address] [place], [place] [address] RBC #/vol (Bld) 16.9 11.6-14.4 % High 07-03-2018 [facility] (00 000) Comment: Performed By: #### CBCDFC, A LB, ENZ3, CHM7, BILTO, CA, GGTB, URICB, IPB, MGO, TP, OSMO, PTPTT, ALCOSU, HCAB, HSVM, HIV, CMVG, IPTH, SERDRG, HBSAB, HBSAG, HBCBG, EBVG, HSVG12, VZISB #### [facility] [address] [place] [address] [place] [address] RBC #/vol (Bld) 4.17 4.63-6.08 M/uL Low 07-03-2018 [facility] nter ([id number]) Comment: Performed By: #### CBCDFC, A LB, ENZ3, CHM7, BILTO, CA, GGTB, URICB, IPB, MGO, TP, OSMO, PTPTT, ALCOSU, HCAB, HSVM, HIV, CMVG, IPTH, SERDRG, HBSAB, HBSAG, HBCBG, EBVG, HSVG12, VZISB #### [facility] [address] [place] [address] [address] [place] [address] SEGS + Bands,Absolute 2.65 1.78-5.38 K/uL Normal 07-03-20 18 [facility] ([id number]) Comment: Performed By: #### CBCDFC, A LB, ENZ3, CHM7, BILTO, CA, GGTB, URICB, IPB, MGO, TP, OSMO, PTPTT, ALCOSU, HCAB, HSVM, HIV, CMVG, IPTH, SERDRG, HBSAB, HBSAG, HBCBG, EBVG, HSVG12, VZISB #### [facility] [address] [place] [address] [facility] [address] [place] [address] WBC #/vol (Bld) 5.31 4.23-9.07 K/uL Normal 07-03-2018 [facility] nter ([id number]) Comment: Performed By: #### CBCDFC, A LB, ENZ3, CHM7, BILTO, CA, GGTB, URICB, IPB, MGO, TP, OSMO, PTPTT, ALCOSU, HCAB, HSVM, HIV, CMVG, IPTH, SERDRG, HBSAB, HBSAG, HBCBG, EBVG, HSVG12, VZISB #### [facility] [address] [place] [address] [address] [place] [address] calcium on Calcium mass conc 9.1 8.6-10.5 mg/dL Normal 07-03-2018 [facility] nter ([id number]) Comment: Performed By: #### CBCDFC, A LB, ENZ3, CHM7, BILTO, CA, GGTB, URICB, IPB, MGO, TP, OSMO, PTPTT, ALCOSU, HCAB, HSVM, HIV, CMVG, IPTH, SERDRG, HBSAB, HBSAG, HBCBG, EBVG, HSVG12, VZISB #### [facility] [address] [place] [address] [address] [place] [address] bilirubin, total on 2018-07-03 Bilirubin mass conc 0.5 <1.5 mg/dL Normal 07-03-2018 [facility] nter ([id number]) Comment: Performed By: #### CBCDFC, A LB, ENZ3, CHM7, BILTO, CA, GGTB, URICB, IPB, MGO, TP, OSMO, PTPTT, ALCOSU, HCAB, HSVM, HIV, CMVG, IPTH, SERDRG, HBSAB, HBSAG, HBCBG, EBVG, HSVG12, VZISB #### [facility] [address] [place] [address] [address] [place] [address] alp*alt*ast on 2017 ALP enzyme act/vol 69 32-126 U/L Normal 07-03-2018 [facility] nter ([id number]) Comment: Performed By: #### CBCDFC, A LB, ENZ3, CHM7, BILTO, CA, GGTB, URICB, IPB, MGO, TP, OSMO, PTPTT, ALCOSU, HCAB, HSVM, HIV, CMVG, IPTH, SERDRG, HBSAB, HBSAG, HBCBG, EBVG, HSVG12, VZISB #### [facility] [address] [place] [address] [address] [place] [address] ALT enzyme act/vol 4 10-52 U/L Low 07-03-2018 [facility] (00 000) Comment: Performed By: #### CBCDFC, A LB, ENZ3, CHM7, BILTO, CA, GGTB, URICB, IPB, MGO, TP, OSMO, PTPTT, ALCOSU, HCAB, HSVM, HIV, CMVG, IPTH, SERDRG, HBSAB, HBSAG, HBCBG, EBVG, HSVG12, VZISB #### [facility] [address] [place] [address] [address] [place] [address] AST enzyme act/vol 9 14-40 U/L Low 07-03-2018 [facility] (00 000) Comment: Performed By: #### CBCDFC, A LB, ENZ3, CHM7, BILTO, CA, GGTB, URICB, IPB, MGO, TP, OSMO, PTPTT, ALCOSU, HCAB, HSVM, HIV, CMVG, IPTH, SERDRG, HBSAB, HBSAG, HBCBG, EBVG, HSVG12, VZISB #### [facility] [address] [place] [address] [address] [place] [address] alcohol,whole blood/serum on 2018-07-03 Alcohol,Whole Blood/Serum <10 <10 Normal [facility] nter ([id number]) Comment: Result Comment: For Medical Purposes Only, Non forensic Performed By: #### CBCDFC, A LB, ENZ3, CHM7, BILTO, CA, GGTB, URICB, IPB, MGO, TP, OSMO, PTPTT, ALCOSU, HCAB, HSVM, HIV, CMVG, IPTH, SERDRG, HBSAB, HBSAG, HBCBG, EBVG, HSVG12, VZISB #### [facility] [address] [place] [address] [place] [address] albumin on Albumin mass conc 4.2 3.5-5.0 g/dL Normal 07-03-2018 O [facility] nter ([id number]) Comment: Performed By: #### CBCDFC, A LB, ENZ3, CHM7, BILTO, CA, GGTB, URICB, IPB, MGO, TP, OSMO, PTPTT, ALCOSU, HCAB, HSVM, HIV, CMVG, IPTH, SERDRG, HBSAB, HBSAG, HBCBG, EBVG, HSVG12, VZISB #### [facility] [address] [place] [address] [place] [address] abo/rh(d) on 2017-09 ABO/RH(D) ABO/RH(D): B POSITIVE Normal 07-03-20 18 [facility] nter ([id number]) Comment: Performed By: #### CBCDFC, A LB, ENZ3, CHM7, BILTO, CA, GGTB, URICB, IPB, MGO, TP, OSMO, PTPTT, ALCOSU, HCAB, HSVM, HIV, CMVG, IPTH, SERDRG, HBSAB, HBSAG, HBCBG, EBVG, HSVG12, VZISB #### [facility] [address] [place] [address] [facility] [address] [place], [place] [address] No panel information on 2018-07-03 ABO and Rh group B POSITIVE Invalid 07-03-2018 L [facility] Nom (Bld) Interpretation Code Blood group NEGATIVE Invalid 07-03-2018 LAB, [facility] U antibody screen Interpretation Code Ql ABO and Rh group B POSITIVE Invalid 07-03-2018 L [facility], [facility] Nom (Bld) Interpretation Code Albumin mass 4.2 3.5 - 5 g/dL Invalid 07-03-2018 LAB, O BETANCOURT conc Interpretation Code ALP enzyme 69 32 - 126 U/L Invalid 07-03-2018 [facility] act/vol Interpretation Code ALT enzyme 4 10 - 52 U/L Low 07-03-2018 [facility] act/vol Anion gap 3 21 7 - 17 mmol/L High 07-03-2018 LAB, [facility] molar conc aPTT Coag time 31.7 OTH - OTH s Invalid 07-03-2018 [facility] (Bld) Interpretation Code AST enzyme 9 14 - 40 U/L Low 07-03-2018 [facility] act/vol Basophils Auto 0.05 <0.09 K/uL Invalid 07-03-2018 [facility] #/vol (Bld) Interpretation Code Basophils/100 0.9 % Invalid 07-03-2018 [facility] WBC Auto (Bld) Interpretation Code Bilirubin mass 0.5 <1.5 mg/dL Invalid 07-03-2018 [facility] conc Interpretation Code Calcium mass 9.1 8.6 - 10.5 mg/dL Invalid 07-03-2018 [facility] conc Interpretation Code Chloride molar 91 98 - 108 mmol/L Low 07-03-2018 [facility] conc CMV IgG Ql POSITIVE Negative Abnormal 07-03-2018 [facility] CO2 molar conc 27 22 - 30 mmol/L Invalid 07-03-2018 [facility] Interpretation Code Creatinine mass 10.57 0.7 - 1.3 mg/dL Critically high 07-03-20 18 [facility] conc Comment: Critical CREA result called to and read back by: RACHEL ROGERS at: 07/03/2018 13:50:35 by : [id number] Differential cell Electronic Invalid 07-03-2018 [facility] count method Nom Differential Interpretation Code (Bld) Drugs of abuse panel For Medical Purposes Invalid 07-03-2018 [facility] - Blood by Screen Only, Non-forensic, Interpretati on Code method screen results are presumptive. No confirmatory testing will follow. Comment: This Liquid Chromatography M ass Spectrometry (LC/MS/MS) test was developed and its performance characte ristics determined by [facility] at [facility]. It has not been cleared or approved by the FDA. The lab oratory is regulated under CLIA as qualified to perform high-complexity test ing. This test is used for clinical purposes. It should not be regarded as in vestigational or for research. The following drugs with their lowest leve l of detection in ng/ml(LOD) are included in this screen: 6 Monoacetylmor phine(300), 7 Aminoflunitrazepam(25), 7 Aminoclonazepam(50), Alphahy droxytriazolam(400), Alphahydrozyalprazolam(200), Alprazolam(50), Amitriptyline(50), Amphetamine(250), Atenolol(5 00), Barbiturates(1000), Benzoylecgonine(50), Buprenorphine(50), Bupropion (25), Caffeine(97919), Chlordiazepoxide(50), Chlorpheniramine(100), Chlor promazine(50), Citalopram(100), Clonazepam(200), Cocaine(25), Codeine(200), C otinine(500), Desakylflurazepam(50), Desipramine(50), Desmethyldo xepin(100), Dextromethorphan(100), Diazepam(100), Dihydrocodein e(100), Diltazem(50), Diphenhydramine(100), Doxepin(100), EDDP/methadone (100), Ephedrine/Pseudoephedrine(100), Fentanyl(25), Flunitrazepam( 100), Fluoxetine(200), Flurazepam(50), Gabapentin(1500), Haloperido l(25), Hydrocodone(100), Hydromorphone(200), Imipramine(50), Ketamine(25) , Lidocaine(25), Lorazepam(100), Lysergide(LSD)(25), Maprotil ine(200), MDA(250), MDMA(250), Meperidine(50), Methadone(50), Methamphetami ne(500), Methylphenidate(50), Metoprolol(50), Morphine(200), Nalbuphine(50 ), Naloxone(200), Norbuprenorphine(300), Nordiazepam(100), Norfentany l(100), Norpropoxyphene(50), Nortriptyline(50), Olanzapine(200), Oxazepam(20 0), Oxycodone(100), Oxymorphone(200), Phencyclidine(PCP)(25), Phen iramine(25), Pregabalin(1500), Promethazine(50), Propoxyphene(100), Propanolo l(50) Quetiapine(25), Quinidine(500), Ranitidine(500), Risperidone (100), Sertraline(50), Temazepam(100), Thioridazine(100), Tramadol( 50), Trazodone(25, Triazolam(100), Venlafaxine(50), Verapamil(1 00), Zolpidem(200) Drugs of abuse NONE DETECTED Invalid 07-03-2018 [facility] panel - Blood by Interpretation Code Screen method EBV capsid IgG Ql POSITIVE Negative Abnormal 07-03-2018 L AB, [facility] (S) Eosinophils Auto 0.20 <0.55 K/uL Invalid 07-03-2018 LA B, [facility] #/vol (Bld) Interpretation Code Eosinophils/100 3.8 % Invalid 07-03-2018 LAB , [facility] WBC Auto (Bld) Interpretation Code Erythrocyte 16.9 11.6 - 14.4 % High 07-03-2018 [facility] distribution width Auto Ratio (RBC) Ethanol Ql (Bld) <10 <10 mg/dL Invalid 07-03-2018 LA B, [facility] Interpretation Code Comment: For Medical Purposes Only, N on forensic Gamma glutamyl 19 8 - 64 U/L Invalid 07-03-2018 LAB, transferase enzyme Interpretation [facility] act/vol Code GFR/1.73 sq 6 >60 mL/min Low 07-03-2018 LAB, M.predicted MDRD mL/min/1.73sqM /{1.73 [facility] vol rate/area _m2} GFR/1.73 sq 7 >60 mL/min Low 07-03-2018 LAB, M.predicted MDRD mL/min/1.73sqM /{1.73 [facility] vol rate/area _m2} Glucose mass conc 76 70 - 99 mg/dL Invalid 07-03-2018 L AB, Interpretation [facility] Code HBV core IgG+IgM Negative Negative Invalid 07-03-2018 LA B, Ql (S) Interpretation [facility] Code HBV surface Ab IA POSITIVE Negative Abnormal 07-03-2018 L AB, Ql (S) [facility] HBV surface Ag Ql Negative Negative Invalid 07-03-2018 L AB, (S) Interpretation [facility] Code HCV Ab Ql (S) Negative Negative Invalid 07-03-2018 LAB, Interpretation [facility] Code Hematocrit Auto 37.5 40.1 - 51 % Low 07-03-2018 LAB , Volume Fraction [facility] (Bld) Hemoglobin mass 11.5 13.7 - 17.5 g/dL Low 07-03-2018 L AB, conc (Bld) [facility] HIV 1+2 Ab+HIV1 NONREACTIVE NONREACTIVE Invalid 07-03-2018 LAB, p24 Ag IA Ql Interpretation [facility] Code HSV 1 IgG IA Qn POSITIVE Negative {index Abnormal 07-03-2018 LAB , (S) _val} [facility] HSV 1+2 IgM IA Qn Negative Negative Invalid 07-03-2018 L AB, (S) Interpretation [facility] Code HSV 2 IgG IA Qn Negative Negative {index Invalid 07-03-2018 LAB , (S) _val} Interpretation [facility] Code Immature <0.04 <0.04 K/uL 10*3/u Invalid 07-03-2018 LAB, granulocytes #/vol L Interpretation [facility] (Bld) Code Immature 0.4 % Invalid 07-03-2018 LAB, granulocytes/100 Interpretation [facility] WBC (Bld) Code INR Coag RelTime 1.2 OTH - OTH {INR} High 07-03-2018 LA B, (Bld) [facility] Interpretation and Abnormal Invalid 07-03-2018 LAB, review of Interpretation [facility] laboratory results Code Lymphocytes Auto 1.48 1.32 - 3.57 K/uL Invalid 07-03-2018 LAB, #/vol (Bld) Interpretation [facility] Code Lymphocytes/100 27.9 % Invalid 07-03-2018 LAB , WBC Auto (Bld) Interpretation [facility] Code Magnesium mass 2.3 1.6 - 2.6 mg/dL Invalid 07-03-2018 LAB, conc Interpretation [facility] Code MCH Auto Entitic 27.6 25.7 - 32.2 pg Invalid 07-03-2018 LAB, mass (RBC) Interpretation [facility] Code MCHC Auto mass 30.7 32.3 - 36.5 g/dL Critically low 07-03-20 18 LAB, conc (RBC) [facility] MCV Auto Entitic 89.9 79 - 92.2 fL Invalid 07-03-2018 LA B, volume (RBC) Interpretation OS U Code Monocytes Auto 0.91 0.3 - 0.82 K/uL High 07-03-2018 LAB , #/vol (Bld) [facility] Monocytes/100 WBC 17.1 % Invalid 07-03-2018 L AB, Auto (Bld) Interpretation [facility] Code Neutrophils Manual 2.65 1.78 - 5.38 K/uL Invalid 8 LAB, cnt #/vol (Bld) Interpretation [facility] Code Nucleated RBC/100 0.0 OTH - OTH % Invalid 07-03-2018 L AB, WBC Ratio (Bld) Interpretation [facility] Code Osmolality 301 OTH - OTH mosm/k Invalid 07-03-2018 LAB, g Interpretation [facility] Code Osmolality 292 OTH - OTH Invalid 07-03-2018 LAB, Calculated Interpretation [facility] Code Parathyrin.intact 327.2 14 - 72 pg/mL High 07-03-2018 L AB, mass conc [facility] Phosphate mass 7.2 2.2 - 4.6 mg/dL High 07-03-2018 LAB, conc [facility] Platelet mean 11.2 9.4 - 12.4 fL Invalid 07-03-2018 LAB, volume Auto Interpretation [facility] Entitic volume Code (Bld) Platelets Auto 211 163 - 337 K/uL Invalid 07-03-2018 LAB, #/vol (Bld) Interpretation [facility] Code Potassium molar 5.3 3.5 - 5 mmol/L High 07-03-2018 LAB , conc [facility] Protein mass conc 9.2 6.4 - 8.3 g/dL High 07-03-2018 L AB, [facility] Prothrombin time 15.6 OTH - OTH s High 07-03-2018 LA B, (PT) Coag time [facility] (PPP) RBC Auto #/vol 4.17 OTH - OTH 10*6/u Low 07-03-2018 LAB, (Bld) L [facility] Segmented 49.9 % Invalid 07-03-2018 LAB, neutrophils/100 Interpretation [facility] WBC Manual cnt Code (Bld) Sodium molar conc 134 133 - 143 mmol/L Invalid 07-03-2018 L AB, Interpretation [facility] Code Urate mass conc 4.3 3.5 - 7 mg/dL Invalid 07-03-2018 LAB , Interpretation [facility] Code Urea nitrogen mass 38 7 - 22 mg/dL High 07-03-2018 LAB, conc [facility] Urea 4 mg/mg Invalid 07-03-2018 LAB, nitrogen/Creatinin Interpretation [facility] e mass ratio Code VZV IgG Ql (S) POSITIVE POSITIVE Invalid 07-03-2018 LAB, Interpretation [facility] Code Comment: Prior exposure to the varicella zoster virus may cause measurable varicella zoster IgG antibod y. VZV IgG Qn (S) >8.0 Invalid Interpretation Co de 07-03-2018 [facility] Comment: THIS IS A QUALITATIVE ASSAY. The numeric value is not necessarily indicative of the amount of anti-Measle s, Mumps, Rubella, or VZV IgG antibody present. Results should be interprete d in conjunction with clinical and epidemological data. WBC Auto #/vol 5.31 4.23 - 9.07 K/uL Invalid Interpretation 07-03-2018 [facility] (Bld) Code dialysis injection with thromb/plasty 44949 on 2018-05-19 DIALYSIS INJECTION Performed at [facility] Normal 05-19-2018 [facility] WITH THROMB/PLASTY APPROVED BY: RADHA YU MD [facility] [id number] ([id number]) EXAM TITLE: ULTRASOUND-GUIDE D ACCESS LEFT ARM AV FISTULA X2, INSTILLATION OF TPA FOR LYSIS, LEFT ARM FISTULOGRAM, ATTEMPTED DECLOT OF LEFT ARM AV FISTULA UTILIZING PHARMACOLOGIC AND MECHANICAL TECHNIQUE , ULTRASOUND GUIDED INTERROG ATION OF RIGHT INTERNAL JUGULAR VEIN, ULTRASOUND- GUIDED PLACEMENT OF LEFT COMMON FEMORAL TUNNELED DIALYSIS CATHETER. DATE:05/19/2018 13:05 CLINICAL INDICATION/HISTORY: Clotted left arm AV fistula. 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 Risks include but are not limited to bleeding, infection, hematoma, hemorrhagic complications including stroke , pulmonary complications, i schemic complications of the left arm, ME and . In addition the patient understood that if we failed to declot the fistula he would need a catheter. TECHNIQUE: The ultrasound wa s used to interrogate the left arm AV fistula. Utilizing ultrasound guidance an IV was placed in the left arm AV fistula and 4 mg of TPA were infused. This was allowed to sit for 1 hour. All elements of gary moctezuma ier technique including cap and mask, sterile gown, sterile gloves, a large sterile drape, hand hygiene and appropriate prep agent for cutaneous antisepsis were utilized and maintained during the procedure. The procedures performed by Radha Yu MD. Wire access was obtained in the left arm AV fistula through the previously placed IV and a 6 Luxembourger short sheath is placed. Local anesthetic was used for the procedure. A fistulogram was performed. Util izing a Glidewire as well as an angled catheter, attempted mechanical thrombectomy was performed. Wire access was obtained into the radial artery. A mechanical thrombectomy was performed utilizing a 5 o juanis the wire Eddie balloon . This yielded minimal results. At this point secondary access was obtained just distal to the antecubital fossa using ultrasound guidance. Utilizing the micropuncture techni que a short 6 Luxembourger sheath is placed. Wire access was obtained into the remaining part of the fistula. A fistulogram was performed. Again a mechanical thrombectomy was attempted. Utilizing a 5 x 8 ball oon, angled catheters and wi res, as well as a 5 over the wire Eddie, we attempted to restore flow to the part of the fistula. Repeat attempts were made utilizing a 5 x 8 balloon as well as the Eddie to restore inflow to the fi stula. In addition fistulogram stated revealed the patient does have clot in his radial artery. The patient denied having any symptoms of pain in his hand. The Eddie cathet er was used with significant improvement in results in flow in the radial artery. Multiple fistulogram was performed. After significant attempts were made with both catheters, wires, syringes, Eddie's , and balloons to declot thi s fistula, the procedure was terminated. The ultrasound was used to evaluate the left radial artery which did show good flow up to the level of the fistula and pseudoaneurysm . In addition the patient lester d a strong Doppler signal and is palmar arch the left hand. The patient did remain without any symptoms in his left arm. At this point I did discuss accessed with the patient. The patient had a left IJ known occlusion. By ultrasound guidance did appear that the right internal jugular vein was also occluded. At this point I did offer to access the [facility] internal jugular vein to confirm the occlusion, but the patient declined. Attention was turned to the left common femoral vein for placement of tunneled dialysis catheter.The left common femoral vein was interrogated with the ultrasound and found to be patent. Utilizing ultra sound guidance, a micropunct ure needle was directed into the left common femoral vein and the tip of the needle within the vein was documented. Utilizing guidewire exchange and Seldinger technique, a lo ng sheath was placed. A tunn eled dialysis was selected and to the appropriate size. An area of the anterior thigh was anesthetized using Lidocaine with epinephrine and the catheter tunneled through this site to the peel-away sheat h. The catheter was then introduced into the sheath and guided fluoroscopically with the tip at the inferior vena caval. A peel- away sheath was then removed and the catheter was sutured in place and ban daged. The catheter was flushed with Hep-Lock solution. The catheter is ready for use. FINDINGS: Poor flow in the left radial artery by ultrasound prior to beginning the procedure Thrombosis of entire left ar m AV fistula including pseudoaneurysms by ultrasound Unsuccessful attempts at dec lot of left forearm AV fistula utilizing pharmacological and mechanical techniques. Attempted declot with catheter, suction, balloon angioplasty and over the wire Eddie. Known occlusion of left internal jugular vein and left subcl bubba vein Likely occlusion of right internal jugular vein by ultrasoun d Successful placement of left common femoral tunneled dialysi s catheter. IMPRESSION: Unsuccessful attempt at decl ot of left forearm AV fistula utilizing pharmacological and mechanical technique. Occluded internal jugular veins and left subclavian vein Successful placement of left common femoral tunneled dialysi s catheter 15 minutes 12 seconds fluoroscopy time 144 MG Y 44 cc contrast hosp on 2018-05-18 HOSP Patient:Elia Weston Normal 05-18-20 [facility] MRN: Center (00 [id number]) Height:5' 11(1.803 m) Weight:No patient weight recorded within the last 30 days. Outpatient Medications as of 05/19/18: SENSIPAR 60 mg tablet carvedilol (COREG) 3.125 mg tablet Jim mccracken sevelamer carbonate (RENVELA) 800 mg tablet Admission/Clinic Administered Medications as of 05/19/18: Patient has no admission medications. Problem List: ESRD (end stage renal disease) on dialysis [N18.6, Z99.2] HTN (hypertension) [I10] Morbid obesity (HCC) [E66.01] Epigastric pain [R10.13] Mechanical complication of o ther vascular device, implant, and graft [T82.598A] Right knee pain [M25.561] BMI 45.0-49.9, adult (HCC) [Z68.42] Tendinitis of left shoulder [M75.82] NO SHOW [709474] Mass of left thigh [R22.42] Thigh pain [M79.659] Hematuria [R31.9] Dialysis patient (HCC) [Z99.2] YEIMY (obstructive sleep apnea) [G47.33] Abdominal or pelvic swelling, mass, or lump, right lower maura drant [R19.03] Secondary hyperparathyroidism (HCC) [N25.81] Renal osteodystrophy [N25.0] Hyperphosphatemia [E83.39] Groin pain [R10.30] Pulmonary embolism without acute cor pulmonale (HCC) [I26.99 ] Sprain of medial collateral ligament of right knee [S83.411A ] Allergies: No Known Allergies Date Verified:05/19/18 Lab Values No results within the last 30 days for the following basenam es: K,HCT No progress notes entered within the past 30 days troponin on 2017-12 Troponin I.cardiac <0.020 0.000-0.040 ng/mL Normal 8 [facility] mass conc (36158) Comment: Result Comment: <0.04 : Nega tive0.04 - 0.50 : Possible Cardiac Damage>0.50 : Consistent with Cardiac Annie ge Performed By: #### [id number] # ###[facility] [address] [place] [address] prothrombin time on 2018-01-17 INR Coag RelTime (PPP) 1.20 0.90-1.10 {INR} High 018 [facility] (77362) Comment: Result Comment: PLEASE NOTE NEW REFERENCE RANGE EFFECTIVE 2017 Performed By: #### [id number] # ###[facility] [address] [place] [address] Prothrombin time (PT) Coag 13.4 9.8-12.7 sec High [facility] Healthcare (29723) time (PPP) Comment: Result Comment: PLEASE NOTE NEW REFERENCE RANGE EFFECTIVE 2017 Performed By: #### [id number] # ###[facility] [address] [place] [address] partial thromboplastin time on 2018-01-17 aPTT 28.1 25.0-36.0 sec Normal 01-17-2018 [facility] Healt hcare (11448) Comment: Result Comment: PLEASE NOTE NEW REFERENCE RANGE EFFECTIVE 2017.The APTT is no longer used for m onitoringUnfractionated Heparin Therapy.For monitoring Heparin Therapy, use theHeparin Assay. Performed By: #### [id number] # ###[facility] [address] [place] [address] magnesium on 01-17 Magnesium 2.2 1.6-2.4 mg/dL Normal 01-17-2018 [facility]alt [facility] (47384) Comment: Performed By: #### [id number] # ###[facility] [address] [place] [address] culture, blood bacterial on 2018-01-17 Culture, BILL#: [id number] : 84 AGE: Amanda l 01-17-2018 [facility] Blood SEX:ZAYNABRACHELLECALVIN YATES: Healthcare Bacterial Blood COLLECTED: 01/17/18 ([id number]) 21:00ANTIBIOTICS AT AKBAR.: RECEIVED : 01/18/18 00:18SITE: AntecubitalR E S U L T SBLOOD CULTURE, BACTERIAL FINAL 01/23/18 05:42No Growth at 1 daysNo Growth at 2 daysNo Growth at 3 daysNO GROWTH - FINAL REPORT Comment: Performed By: #### [id number] # ###[facility] [address] [place] [address] Culture, BILL#: [id number] : 84 AGE: Amanda l 01-17-2018 [facility] Blood SEX:CALVIN KENDRICK: Healthcare Bacterial Blood COLLECTED: 01/17/18 ([id number]) 20:27ANTIBIOTICS AT AKBAR.: RECEIVED : 01/18/18 00:20SITE: SAME INSULATING MACHINE OPERATOR E S U L T SBLOOD CULTURE, BACTERIAL FINAL 01/23/18 05:42No Growth at 1 daysNo Growth at 2 daysNo Growth at 3 daysNO GROWTH - FINAL REPORT Comment: Performed By: #### [id number] # ###[facility] [address] [place] [address] cta neck on 2017-12 CTA NECK DATE OF EXAM: Jan 17 2018 Normal 12-29 [facility] Healthcare 9:01PMCLINICAL HISTORY/ ) [id number] Name: ELIA WESTONSTUDY:CTA NECK; 01/17/2018 9:01 pmINDICATION:Right-sided neck pain.COMPARISON:None. CLINICIAN:PRINCESS PATTERSON:Contiguous axial CTA images of neck were obtained after the administration of 150 mL Isovue 370 IV contrast. Sagittal and coronal reconstructions were createdFINDINGS:Suboptimal evaluation due to technical issues with poor timing and lack of early arterial phase scanning.CTA NECK FINDINGS:Normal appearing three-vessel arch without significant atherosclerotic disease.Right carotid vessels: The common carotid artery is normal. There are calcifications at the carotid bifurcation the internal carotid artery in the neck is normal. No significant stenosis by NASCET criteriaLeft carotid vessels: The common carotid artery is normal. There are calcifications at the carotid bifurcation. The internal carotid artery in the neck is normal. No significant stenosis by NASCET criteriaVertebral vessels: Dominant right vertebral artery with diminutive caliber of the left vertebral artery throughout its entire course. Basilar artery and proximal visualized portions of the posterior cerebral arteries are within normal limits.Lung apices are unremarkable.Extensive collateral vessels are present within the anterior upper chest and neck soft tissues.Orbits are symmetric bilaterally.Visualized paranasal sinuses demonstrate mucosal thickening of the maxillary sinuses. Underpneumatized mastoid air cells right greater than left.Parotid and submandibular glands are unremarkable without stones.Prominent cervical lymph nodes bilaterally.No retropharyngeal or peritonsillar collection are present.CONCLUSION: IMPRESSION:Suboptimal evaluation due to poor contrast timing, however, allowing for these limitations no evidence of occlusion or significant stenosis throughout the visualized neck vesselsExtensive collateral vessels/varices are seen within the anterior lower neck/upper chest wall soft tissues. comprehensive metabolic panel on 2018-01-17 Alanine aminotransferase (ALT) 6 10-52 U/L Low 01-17-2018 [facility] ([id number]) Comment: Performed By: #### [id number] # ###[facility] [address] [place] [address] Albumin 3.6 3.4-5.0 g/dL Normal 01-17-2018 [facility] (51811) Comment: Performed By: #### [id number] # ###[facility] [address] [place] [address] Albumin/Globulin Ratio 0.8 0.9-2.4 {ratio} Low 018 [facility] (55080) Comment: Performed By: #### [id number] # ###[facility] [address] [place] [address] Alkaline phosphatase (ALP) 60 45-117 U/L Normal [facility] (53168) Comment: Performed By: #### [id number] # ###[facility] [address] [place] [address] Anion gap 15 10-20 mmol/L Normal 01-17-2018 [facility] (63993) Comment: Performed By: #### [id number] # ###[facility] [address] [place] [address] Aspartate aminotransferase (AST) 12 13-39 U/L Low 01-17-2018 [facility] (05092) Comment: Performed By: #### [id number] # ###[facility] [address] [place] [address] Bicarbonate (HCO3) 33 21-32 mmol/L High 01-17-2018 [facility] (21277) Comment: Performed By: #### [id number] # ###[facility] [address] [place] [address] Bilirubin (total) 0.4 0.0-1.2 mg/dL Normal 01-17-2018 [facility] (63657) Comment: Performed By: #### [id number] # ###[facility] [address] [place] [address] BUN/Creatinine Ratio 3 5-25 mg/mg Low 8 [facility] (72070) Comment: Performed By: #### [id number] # ###[facility] [address] [place] [address] Calcium 9.9 8.6-10.3 mg/dL Normal [facility]-17-2018 [facility] (30541[facility] Comment: Performed By: #### [id number] # ###[facility] [address] [place] [address] Chloride 91 98-107 mmol/L Low 01-17-2018 [facility] (18986) Comment: Performed By: #### [id number] # ###[facility] [address] [place] [address] Creatinine 7.98 0.50-1.30 mg/dL High 01-17-2018 [facility] (81008) Comment: Performed By: #### [id number] # ###[facility] [address] [place] [address] eGFR (MDRD) 8 mL/min/{1.73_m2} Normal 01-17-2018 [facility] (25784) Comment: Result Comment: Interpretati on for Chronic Kidney Disease:Stages 1&2 >60 Healthy or potential kidney damage.Mild decrease of GFR.Stage 3 30-59 Moderate decrease of GFR.Sta ge 4 15-29 Severe decrease of GFR.Stage 5 <15 Kidney failure or on dialysi s. Performed By: #### [id number] # ###[facility] [address] [place] [address] Glucose mass conc 92 70-100 mg/dL Normal 01-17-2018 [facility] (25397) Comment: Performed By: #### [id number] # ###[facility] [address] [place] [address] Potassium molar conc 4.4 3.5-5.1 mmol/L Normal 8 [facility] (97989) Comment: Performed By: #### [id number] # ###[facility] [address] [place] [address] Protein 8.2 6.4-8.2 g/dL Normal 01-17-2018 [facility] (68130) Comment: Performed By: #### [id number] # ###[facility] [address] [place] [address] Sodium 135 136-145 mmol/L Low 01-17-2018 [facility] (97100) Comment: Performed By: #### [id number] # ###[facility] [address] [place] [address] Urea nitrogen 21 6-23 mg/dL Normal 01-17-2018 [facility] (58462) Comment: Performed By: #### [id number] # ###[facility] [address] [place] [address] chest 2 view on 05-02-21 CHEST DATE OF EXAM: Jan 17 2018 9:09PMCLINICAL HISTORY/ Normal 01-17-2018 [facility] 2 VIEW Name: ELIA WESTONSTUDY:[facility] 2 VIEW; 01/17/2018 9:09 ([id number]) pmINDICATION:Pain.COMPARISON:04/13/2013CCESSION NUMBER(S):[id number] CLINICIAN:PRINCESS OROZCOINDINGS:Cardiomediastinal contours are stable in size and configuration. There isPatchy right basilar opacity which could relate to atelectasis or infiltrate. Mild interstitial prominence could relate to mild edema or viral/atypical infection. No sizable effusion or pneumothorax. Dextroscoliosis, but no definite acute osseous abnormality.CONCLUSION: IMPRESSION:Mild interstitial prominence could relate to mild edema or viral/atypical infection. Patchy right basilar atelectasis versus developing infiltrate. cbc with differential on 2018-01-17 Basophils Auto #/vol 0.02 0.01-0.09 10*3/uL Normal 8 [facility] Healthcare (47007) (Bld) Comment: Performed By: #### [id number] # ###[facility] [address] [place] [address] Basophils/100 WBC Auto (Bld) 0.3 0.0-1.3 % Normal 0 01-17-2018 [facility] (43750) Comment: Performed By: #### [id number] # ###[facility] [address] [place] [address] Eosinophils 0.09 0.01-0.46 10*3/uL Normal 01-17-2018 [facility] (73814) Comment: Performed By: #### [id number] # ###[facility] [address] [place] [address] Eosinophils/100 leukocytes 1.3 0.0-6.7 % Normal [facility] (60892) Comment: Performed By: #### [id number] # ###[facility] [address] [place] [address] Erythrocyte distribution 19.3 12.0-15.4 % High 01-17 [facility] (54418) width Auto Ratio (RBC) Comment: Performed By: #### [id number] # ###[facility] [address] [place] [address] Erythrocytes (RBC) 0.00 10*3/uL Normal 01-17-2018 [facility] (49840) Comment: Performed By: #### [id number] # ###[facility] [address] [place] [address] Erythrocytes (RBC) 0.0 /100{WBCs} Normal 01-17-2018 [facility] (53157) Comment: Performed By: #### [id number] # ###[facility] [address] [place] [address] Erythrocytes (RBC) 3.84 4.08-6.37 10*6/uL Low 01-17-2018 [facility] (74064) Comment: Performed By: #### [id number] # ###[facility] [address] [place] [address] Hematocrit (HCT) 34.6 38.4-54.9 % Low 01-17-2018 [facility] Healthcare (89314) Comment: Performed By: #### [id number] # ###[facility] [address] [place] [address] Hemoglobin mass conc (Bld) 10.2 12.8-17.7 g/dL Low [facility] (68805) Comment: Performed By: #### [id number] # ###[facility] [address] [place] [address] Imm Grans Absolute 0.04 0.00-0.21 10*3/uL Normal 01-17-2018 [facility] Healthcare (19150) Comment: Performed By: #### [id number] # ###[facility] [address] [place] [address] Immature granulocytes #/vol (Bld) 0.6 % Normal 01-17-2018 [facility] Healthcare (00264) Comment: Performed By: #### [id number] # ###[facility] [address] [place] [address] Lymphocytes 1.00 0.40-2.84 10*3/uL Normal 01-17-2018 [facility] Hea lthcare (48838) Comment: Performed By: #### [id number] # ###[facility] [address] [place] [address] Lymphocytes/100 leukocytes 15.0 9.4-41.1 % Normal [facility] Healthcare (08876) Comment: Performed By: #### [id number] # ###[facility] [address] [place] [address] MCH 26.6 27.5-32.9 pg Low 01-17-2018 [facility] Healt hcare (39886) Comment: Performed By: #### [id number] # ###[facility] [address] [place] [address] MCHC mass conc (RBC) 29.5 30.5-35.4 g/dL Low 8 [facility] (86923) Comment: Performed By: #### [id number] # ###[facility] [address] [place] [address] MCV 90.1 83.3-98.2 fL Normal 01-17-2018 [facility] (61285) Comment: Performed By: #### [id number] # ###[facility] [address] [facility] [place] [address] Monocytes 1.18 0.25-1.33 10*3/uL Normal 01-17-2018 [facility] (22297) Comment: Performed By: #### [id number] # ###[facility] [address] [facility] [place] [address] Monocytes/100 leukocytes 17.7 3.0-16.2 % High 01-17 [facility] (77867) Comment: Performed By: #### [id number] # ###[facility] [address] [facility] [place] [address] Neutrophils 4.35 2.22-7.53 10*3/uL Normal 01-17-2018 [facility] (18111) Comment: Performed By: #### [id number] # ###[facility] [address] [facility] [place] [address] Neutrophils/100 leukocytes 65.1 46.2-79.1 % Normal [facility] (33880) Comment: Performed By: #### [id number] # ###[facility] [address] [place] [address] Platelet mean volume (PMV) 10.3 9.9-12.1 fL Normal [facility] (36594) Comment: Performed By: #### [id number] # ###[facility] [address] [place] [address] Platelets 293 155-404 10*3/uL Normal 01-17-2018 [facility] (53378) Comment: Performed By: #### [id number] # ###[facility] [address] [place] [address] RDW SD 62.6 39.3-48.6 fL High 01-17-2018 [facility] (39810) Comment: Performed By: #### [id number] # ###[facility] [address] [place] [address] WBC (Leukocytes) 6.7 4.2-11.0 10*3/uL Normal 01-17-2018 [facility] (54308) Comment: Performed By: #### [id number] # ###[facility] [address] [place] [address] c-reactive protein, high sensitivity on 2018-01-17 C-Reactive Protein, High 51.20 mg/L High 01-17 [facility] (56788) Sensitivity Comment: Result Comment: < 1.0 LOW RE LATIVE RISK OF CVD1.0 - 3.0 AVERAGE RELATIVE RISK OF CVD> 3.0 HIGH RELATI VE RISK OF CVD Performed By: #### [id number] # ###[facility] [address] [place] [address] b natriuretic peptide on 2018-01-17 BNP 48 <100 pg/mL Normal 01-17-2018 [facility] (86863) Comment: Performed By: #### [id number] # ###[facility] [address] [place] [address] Vital Signs Vital Sign Description Value / Unit Date Location The following section is limited to 5 en tries per type and includes entries from the following time range: [id number] - 5. BMI (Body Mass Index) 40.43 kg/m2 07-03-2018 [facility] (09749) Body Temperature 98.49 [degF] 07-03-2018 [facility] (88738) BP Diastolic 97 mm[Hg] 07-03-2018 [facility] (60143) BP Systolic 124 mm[Hg] 07-03-2018 [facility] (67230) Height 177.8 cm 07-03-2018 [facility] (28383) Pulse (Heart Rate) 97 /min 07-03-2018 [facility] (87076) Weight 127.82 kg 07-03-2018 [facility] (23316) Encounters Date Type Reason Provider Location 01-17-2018 Ambulatory Facility:[id number] 01-17-2018 - Emergency Cervicalgia NO FAMILY DOCTOR Facility:[facility] 01-18-2018 department patient NO FAMILY DOCTOR [facility] visit PROVIDER UNKNOWN 04-06-2019 - Evaluation and MAYUR hammer 04-10-2019 management of TAMERA onofre inpatient [facility] (000 00[facility] 11-12-2018 - Evaluation and SILVIANO BARR Facility:Vinny [facility] 11-12-2018 management of SILVIANO BARR [facility] 05-19-2018 - Evaluation and RADHA GEORGE Facility:[facility] 05-19-2018 [facility] 07-03-2018 - Office outpatient Patient awaiting Davian Aldrich Comp rehensive 07-03-2018 new 60 minutes renal transplant Transplan t Center Pre Transplant Office Comment: Pre-transplant evaluation fo r kidney transplant (Primary Dx); End stage renal disease; Encounter for screening for other viral diseases; Abnormal finding of blood chemistry ; Encounter for therapeutic drug level monitoring; Encounter for pr eprocedural cardiovascular examination ; 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) 08-17-2018 - 08-17-2018 Patient encounter Pool [facility] Transplant Center Pre Lay splant Office Comment: Other (Return Call; Reschedu le Appt; ) 11-12-2018 Patient encounter SILVIANO BARR Facilit y:[facility] 11-12-2018 - Patient encounter SILVIANO Valencia [facility] 11-12-2018 procedure FLO [facility] System (38925) LG BARR [facility] 10-08-2018 - Patient encounter Maggy rai of Urological 10-08-2018 procedure Surgery [facility] Comment: Appointment 10-05-2018 - Patient Rosa [facility] of 10-05-2018 encounter Urological Surg ronit procedure EEI 09-17-2018 Patient SILVIANO BARR Facility:[facility] ON encounter SILVIANO BARR [facility] procedure [facility] 09-10-2018 - Patient End stage renal SILVIANO Valencia [facility] 09-10-2018 encounter disease FLO [facility] procedure B OLESHAUN [facility] (73534) [facility] 09-09-2018 - Patient JAYAPRAJENNIFERSH Rueter [facility] 09-10-2018 encounter [facility] procedure JAYAPRAKASH R (20316) RAN [facility] 08-14-2018 Patient SILVIANO BARR Facility:[facility] ON encounter SILVIANO BARR [facility] procedure [facility] 08-03-2018 Patient [facility] encounter [facility] procedure [facility] (43040) 08-03-2018 Patient Awaiting organ [facility] encounter transplant status [facility] ty [place] procedure [facility] (03596) 07-10-2018 - Patient SILVIANO CASTANON [facility] 07-10-2018 encounter [facility] em procedure B SOLO Fletcher ([id number]) [facility] 07-03-2018 Patient Encounter for other [facility] S santos encounter preprocedural [facility] procedure examination [facility] ter B [facility] (96138) 05-19-2018 - Patient RADHA JUDGENK RADHA [facility] 05-19-2018 encounter [facility] procedure ([id number]) 05-04-2018 Patient MANPREETJAMIL VILLAFUERTESON Facility:[facility] ON encounter [facility]PRE[facility] procedure [facility] 12-30-2018 - Telephone Pool Saldivar 12-30-2018 encounter Transplant Cent er Pre Transplant Office Comment: Other (Post-PSC Follow-Up) 04-06-2018 - Telephone encounter Clarice Sutherland Comp rehensive Transplant 04-06-2018 Center Pre Lay splant Office Comment: Insurance Procedures Procedure Name Date Provider Location DISCHARGE PATIENT 04-10-2019 [facility] (0 0000) BIPAP 04-10-2019 [facility] (0 0000) BIPAP 04-10-2019 [facility] (0 0000) HOME BIPAP OR CPAP 04-10-2019 [facility] (0 0000) INITIATE OXYGEN THERAPY PROTOCOL 04-10-2019 [facility] (0 0000) NASAL CANNULA OXYGEN 04-10-2019 [facility] (0 0000) Basic metabolic panel calcium total 04-10-2019 [facility] (0 0000) BIPAP 04-10-2019 [facility] (0 0000) INTAKE AND OUTPUT 04-10-2019 [facility] (0 0000) BIPAP 04-10-2019 [facility] (0 0000) BIPAP 04-09-2019 [facility] (0 0000) BIPAP 04-09-2019 [facility] (0 0000) BIPAP 04-09-2019 [facility] (0 0000) HEMODIALYSIS INPATIENT 04-09-2019 [facility] (0 0000) BIPAP 04-09-2019 [facility] (0 0000) HOME BIPAP OR CPAP 04-09-2019 [facility] (0 0000) INITIATE OXYGEN THERAPY PROTOCOL 04-09-2019 [facility] (0 0000) NASAL CANNULA OXYGEN 04-09-2019 [facility] (0 0000) Basic metabolic panel calcium total 04-09-2019 [facility] (0 0000) BIPAP 04-09-2019 [facility] (0 0000) INTAKE AND OUTPUT 04-09-2019 [facility] (0 0000) BIPAP 04-09-2019 [facility] (0 0000) BIPAP 04-08-2019 [facility] (0 0000) BIPAP 04-08-2019 [facility] (0 0000) BIPAP 04-08-2019 [facility] (0 0000) HEMODIALYSIS INPATIENT 04-08-2019 [facility] (0 0000) BIPAP 04-08-2019 [facility] (0 0000) HOME BIPAP OR CPAP 04-08-2019 [facility] (0 0000) INITIATE OXYGEN THERAPY PROTOCOL 04-08-2019 [facility] (0 0000) NASAL CANNULA OXYGEN 04-08-2019 [facility] (0 0000) Assay of magnesium 04-08-2019 [facility] (0 0000) Basic metabolic panel calcium total 04-08-2019 [facility] (0 0000) Blood count complete auto&auto 04-08-2019 [facility] dif[facility] wbc [facility] (0 0000) C-reactive protein 04-08-2019 [facility] (0 0000) Sedimentation rate rbc automated 04-08-2019 [facility] (0 0000) BIPAP 04-08-2019 [facility] (0 0000) NASAL CANNULA OXYGEN 04-08-2019 [facility] (0 0000) INTAKE AND OUTPUT 04-08-2019 [facility] (0 0000) BIPAP 04-08-2019 [facility] (0 0000) BIPAP 04-07-2019 [facility] (0 0000) BIPAP 04-07-2019 [facility] (0 0000) EKG REPORT 04-07-2019 [facility] (0 0000) BIPAP 04-07-2019 [facility] (0 0000) PATIENT STATUS (DIRECT) 04-07-2019 [facility] (0 0000) BIPAP 04-07-2019 [facility] (0 0000) HOME BIPAP OR CPAP 04-07-2019 [facility] (0 0000) INITIATE OXYGEN THERAPY PROTOCOL 04-07-2019 [facility] (0 0000) Culture bacterial blood aerobic 04-07-2019 [facility] w/id isolates [facility] (0 0000) Microscopic examination of blood, 04-07-2019 [facility] culture [facility] (0 0000) Assay of magnesium 04-07-2019 [facility] (0 0000) Basic metabolic panel calcium total 04-07-2019 [facility] (0 0000) Blood count complete auto&auto 04-07-2019 S aint [facility] difrntl wbc [facility] (0 0000) C-reactive protein 04-07-2019 [facility] (0 0000) Procalcitonin (pct) 04-07-2019 [facility] (0 0000) Sedimentation rate rbc automated 04-07-2019 [facility] (0 0000) IP CONSULT TO IV TEAM 04-07-2019 [facility] (0 0000) CONTRA ASPIRIN ARRIVAL 04-07-2019 [facility] (0 0000) Creatine kinase total 04-07-2019 [facility] (0 0000) Iaad ia mult step method nos each 04-07-2019 [facility] organism [facility] (0 0000) NURSING COMMUNICATION 04-07-2019 [facility] (0 0000) DIET RENAL 04-07-2019 [facility] (0 0000) FULL CODE 04-07-2019 [facility] (0 0000) HOME BIPAP OR CPAP 04-07-2019 [facility] (0 0000) INITIATE OXYGEN THERAPY PROTOCOL 04-07-2019 [facility] (0 0000) INTAKE AND OUTPUT 04-07-2019 [facility] (0 0000) NOTIFY PHYSICIAN (SPECIFY) 04-07-2019 [facility] (0 0000) REASON FOR NO MECHANICAL VTE 04-07-2019 [facility] PROPHYLAXIS [facility] (0 0000) TELEMETRY MONITORING 04-07-2019 [facility] (0 0000) VITAL SIGNS 04-07-2019 [facility] (0 0000) Assay of magnesium 04-07-2019 [facility] (0 0000) Assay of phosphorus inorganic 04-07-2019 Sa int [facility] (0 0000) Basic metabolic panel calcium total 04-07-2019 [facility] (0 0000) Blood count complete automated 04-07-2019 [facility] (0 0000) BIPAP 04-07-2019 [facility] (0 0000) IP CONSULT TO SOCIAL WORK 04-07-2019 [facility] (0 0000) HEMODIALYSIS INPATIENT 04-07-2019 [facility] (0 0000) BIPAP 04-07-2019 [facility] (0 0000) PATIENT STATUS (FROM ED OR 04-07-2019 [facility] OR/PROCEDURAL) [facility] (0 0000) Ct angiography chest 04-06-2019 [facility] w/contrast/noncontrast Health Ce nter (55168) BIPAP 04-06-2019 [facility] (0 0000) BIPAP 04-06-2019 [facility] (0 0000) IP CONSULT TO IV TEAM 04-06-2019 [facility] (0 0000) BIPAP 04-06-2019 [facility] (0 0000) BIPAP 04-06-2019 [facility] (0 0000) Acute hepatitis panel 04-06-2019 [facility] (0 0000) Hepatitis b surf antibody hbsab 04-06-2019 [facility] (0 0000) HEMODIALYSIS INPATIENT 04-06-2019 [facility] (0 0000) ED NURSING COMMUNICATION 04-06-2019 [facility] (0 0000) NEBULIZER TX INTERMITTENT 04-06-2019 [facility] (0 0000) IP CONSULT TO NEPHROLOGY 04-06-2019 [facility] (0 0000) Blood gases any combination ph pco2 04-06-2019 [facility] po2 co2 hco3 [facility] (0 0000) Assay of troponin quantitative 04-06-2019 [facility] (0 0000) Blood count complete auto&auto 04-06-2019 [facility] (0 0000) Comprehensive metabolic panel 04-06-2019 Sa int [facility] (0 0000) Ecg routine ecg w/least 12 lds 04-06-2019 [facility] w/i&r [facility] (0 0000) BIPAP 04-06-2019 [facility] (0 0000) Radiologic exam chest single view 04-06-2019 [facility] (0 0000) Blood gases any combination ph pco2 04-06-2019 [facility] po2 co2 hco3 [facility] (0 0000) INSERT PERIPHERAL IV 04-06-2019 [facility] (0 0000) TELEMETRY MONITORING 04-06-2019 [facility] (0 0000) Microscopic examination of blood, 10-12-2018 [facility] ([id number]) culture Comment: Order Comment: Specimen Sour ce Comment:Blood Performed By: #### HEMDF, BM P3, BNP3, TROPN, TSH5 #### [facility] [address] [place] [address] Microscopic examination of blood, culture 10-10-2018 [facility] ([id number]) Comment: Order Comment: Specimen Sour ce Comment:Blood Performed By: #### HEMOG, PT #### [facility] [address] [place] [address] Blood typing serologic abo 07-03-2018 [facility] ([id number]) Albumin serum plasma[facility]whole [facility] ([id number]) Antibody cytomegalovirus [facility]-03-2018 [facility] [facility] ([id number]) Antibody [place] eb 07-03-2018 - [facility]'s virus viral capsid vca 07-03-2018 [facility] dical Center ([id number]) Antibody herpes smplx type 07-03-2018 - [facility] 1 07-03-2018 [facility] ([id number]) Antibody hla class i high 07-03-2018 - [facility] definition panel qual 07-03-2018 [facility] ([id number]) Antibody varicella-zoster 07-03-2018 - [facility] 07-03-2018 [facility] ([id number]) Assay of blood/uric acid 07-03-2018 - [facility]'s 07-03-2018 [facility] ([id number]) Assay of glutamyltrase 07-03-2018 - [facility]'s gamma 07-03-2018 [facility] (31536) Assay of magnesium 07-03-2018 - [facility] 07-03-[facility] ([id number]) Assay of osmolality blood 07-03-2018 - [facility] 07-03-2018 [facility] ([id number]) Assay of parathormone 07-03-2018 - [facility] 07-03-2018 [facility] ([id number]) Assay of phosphatase 07-03-2018 - [facility] alkaline 07-03-2018 [facility] ([id number]) Assay of phosphorus 07-03-2018 - [facility] inorganic 07-03-2018 [facility] ([id number]) Bilirubin total 07-03-2018 - [facility]'s 07-03-2018 [facility] ([id number]) Blood count complete 07-03-2018 - [facility] auto&auto difrntl wbc 07-03-2018 [facility] ([id number]) Calcium total 07-03-2018 - [facility]'s 07-03-2018 [facility] ([id number]) Creatinine blood 07-03-2018 - [facility] ersity's 07-03-2018 [facility] ([id number]) Drug test def 1-7 classes 07-03-2018 - [facility] 07-03-2018 [facility] ([id number]) Drug tst prsmv instrmnt 07-03-2018 - [facility]'s chem analyzers pr date 07-03-2018 [facility] ([id number][facility] Hepatitis b core antibody 07-03-2018 - [facility]'s hbcab total 07-03-2018 [facility] ([id number]) Hepatitis b surf antibody 07-03-2018 - [facility]'s hbsab 07-03-2018 [facility] ([id number]) Hepatitis c antibody 07-03-2018 - [facility] 07-03-2018 [facility] ([id number]) Hiv combination assay 07-03-2018 - [facility] 07-03-2018 [facility] ([id number]) Hla class i&ii low hla-a 07-03-2018 - [facility]'s -b -c -drb1/3/4/5&dqb 07-03-2018 [facility] (86027) Iaad ia hepatitis b 07-03-2018 - [facility]'s surface antigen 07-03-2018 [facility] ([id number]) Protein xcpt refractometry 07-03-2018 - [facility] serum plasma/whl bld 07-03-2018 [facility] ([id number]) Thromboplastin time 07-03-2018 - [facility]'s partial plasma/whole blood 07-03-2018 [facility] (37366) Plan of Treatment Plan Description Date Location INFLUENZA VACCINE INFLUENZA VACCINE (Season 05-30-2019 - [facility] (Season Ended) Ended) 05-30-2019 CENTER ([id number]) Appointment no information 08-26-2018 - [facility] 08-26-2018 [facility] Office Visit 08/17/2018 Office Visit 08-17-2018 - Division of Urology [place], 08-17-2018 [facility] [address] [place] [address] NUC MYOCARD PERF STRESS NUC MYOCARD PERF STRESS 07-03-2018 - [facility] MIBI EXERCISE MIBI EXERCISE Routine 07-03-2019 [facility] preprocedural (20912) cardiovascular examination Pre-transplant evaluation for kidney transplant End stage renal disease Expected: 07/03/2018, Expires: 07/03/2019 Comment: Expected: 07/03/2018, s: 07/03/2019 INFLUENZA VACCINE (#1) INFLUENZA VACCINE (#1) 2018 - [facility] 05-30-2018 [facility] (54890) TDAP (ADULT) TDAP (ADULT) 2001 - [facility] 2001 [facility] (13388) TETANUS TETANUS 2000 - [facility] 2000 [facility] (54432) ECHOCARDIOGRAM ECHOCARDIOGRAM Routine [place] Stat Pre-transplant [facility] evaluation for kidney Medical Ce nter transplant End stage (34571) renal disease Ordered: 07/03/2018 Comment: Ordered: 07/03/2018 VASC ANKLE BRACHIAL INDEX VASC ANKLE BRACHIAL INDEX [facility]'s Routine Uncontrolled type 2 [facility] diabetes mellitus with ESRD (432 10) (end-stage renal disease) Pre-transplant evaluation for kidney transplant End stage renal disease Ordered: 07/03/2018 Comment: Ordered: 07/03/2018 Immunizations Vaccine Notes Status Date Location INFLUENZA VACCINE influenza virus (completed) 08-17-2014 - [facility] ate (#1) vaccine, unspecified 08-17-2014 Univers [facility]'s formulation [facility] (76364) Payers Payer Name Policy Number Location MEDICAID xxxxxxxxxxxx [facility] ([id number]) MEDICARE xxxxxxxxxxx ELIA WESTON Medicare [id number] [facility] ([id number]) MEDICARE A AND B [id number] [facility] ([id number]) [place] [id number] [facility] ([id number]) [facility] [id number] [facility] ([phone]) [id number] [facility] ([phone]) [id number] [facility] (13160) [id number] [facility] (08073) [id number] [facility] ([phone]) [id number] [facility] ([phone]) [id number] [facility] (56800) [id number] [facility] (14334) [id number] [facility] (04673) [id number] [facility] (91448) [id number] [facility] (76452) [id number] [facility] (55842) [id number] [facility] (83928) [id number] [facility] (03976) The following information is from the original human readable contentNo Payer Records FoundNo Payer Records FoundNo Payer Records FoundNo Payer Records FoundNo Payer Records FoundNo Payer Records FoundNo Payer Records Found Social History Type Social History Date Location Description Tobacco smoking status Former smoker 08-03-2018 - [place] Stat e NHIS 08-03-2018 [facility] (41182) Sex Assigned At Not on file [facility] (11253) Tobacco smoking status Unknown if ever smoked 12-11-2017 [facility] (01851) The following information is from the original human readable contentNo Social History Records FoundNo Social History Records FoundNo Social History Records FoundNo Social History Records FoundNo Social History Records FoundNo Social History Records FoundNo Social History Records FoundNo Social History Records FoundNo Social History Records FoundNo Social History Records FoundNo Social History Records FoundNo Social History Records FoundNo Social History Records FoundNo Social History Records FoundNo Social History Records FoundNo Social History Records FoundNo Social History Records Found Summary Purpose Family History No Family History Records FoundNo Family History Records FoundNo Family History Records FoundNo Family History Records FoundNo Family History Records FoundNo Family History Records FoundNo Family History Records FoundNo Family History Records FoundNo Family History Records Found Advance Directives No Advanced Directives Records FoundNo Advanced Directives Records FoundNo Advanced Directives Records FoundNo Advanced Directives Records FoundNo Advanced Directives Records FoundNo Advanced Directives Records FoundNo Advanced Directives Records FoundNo Advanced Directives Records FoundNo Advanced Dir ectives Records Found Reason for Referral Status Reason Specialty Diagnoses / Referred By Referred To Procedures Contact Contact New Request Diagnoses 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) Pre-transplant evaluation for kidney transplant End stage renal disease Davian Aldrich, Procedures VASC ANKLE BRACHIAL INDEX [address] [place] [address] Status Reason Specialty Diagnoses / Referred By Referred To Procedures Contact Contact New Request Urology Diagnoses Pre-transplant evaluation for kidney transplant End stage renal disease Davian Aldrich MD [address] [place] [address] Status Reason Specialty Diagnoses / Referred By Referred To Procedures Contact Contact New Request Diagnoses Pre-transplant evaluation for kidney transplant End stage renal disease Davian Aldrich, Procedures ECHOCARDIOGRAM [address] [place] [address] Status Reason Specialty Diagnoses / Procedures Referred By R eferred To Contact Contact New Request Diagnoses Encounter for preprocedural cardiovascular examination Pre-transplant evaluation for kidney transplant End stage renal disease Davian Aldrich, Procedures NUC MYOCARD PERF STRESS MIBI EXERCISE [place] CHG MYOCARDIAL SPECT MULTIPLE STUDIES [place] CARDIAC STRESS TST,TRACING ONLY [address] [place] [address] Instructions Patient Instructions - Pool Rogers RN - 07/03/2018 1:17 PM EDTFormatting of this note may be different from the original. Today, you were seen by Dr. Davian Aldrich MD and Av Rogers, Pre-Transplant Nurse Coordinator, as well as a number of other healthcare professionals to begin your pre-transplant clinic evaluation. Melanie be your pre-research project coordinator throughout the pre-transplant process. If you have any questions, he can be reached at: Av Rogers RN, AUB-Jaz-Agtvhjavrv Nurse Coordinator P: [phone]; [email or web address] Fri-Fri 8a-4p; During your visit, additional testing needs were identified, and will need to be completed prior to going to Patient Selection Committee. Chest X-Ray: Please take the elevator to the second floor, turn right, and follow the hallway to the end. Radiology will be on your left side. Let the staff know that you have arrived. Once your Chest X-Ray is complete, your appointment for today is complete. Please have a safe trip home. Cardiac Stress Test and/or Cardiac Echocardiogram: The transplant physician has determined that you will need additional cardiac testing. This will include a Cardiac Stress test and/or a Cardiac Echocardiogram. This testing MUST be completed here at the [facility]. [facility] Central Scheduling will contact you directly to schedule (this/these) appointment(s). However, if you prefer, you may contact them directly at P: [phone] (Option 1). Vascular RACHNA Testing: During your evaluation, the transplant physician recommended that additional vascular testing be completed. Ankle-Brachial Index (RACHNA) testing is a quick, noninvasive way to check your risk of peripheral artery disease (PAD). This test does not need to be completed at [facility]. Please coordinate with your Primary Care Physician or Affiliate Manager to complete this testing locally. Consult Urology: Given your history of anuria, or a failure of your kidneys to produce urine, a referral has been placed for you to be seen by [facility] Department of Urology. Please schedule this appointment by contact themdirectly at P: [phone]. Weight Loss Target Goal During your evaluation visit, Dr. Aldrich/Dr. Gordon and the Registered Dietitian spoke with you about achieving Body Mass Index (BMI) Goal of 38 prior to presenting your candidacy to the Patient Selection Committee. Given your height, that creates a Goal Weight of Approximately 260 lbs. This is an ac hievable goal. Work with your dialysis center dietitian to establish weekly, manageable and attainable goals regarding: diet, exercise and support systems to help you succeed. Contact the [facility] Registered Dietitian (P: [phone]) with any additional questions. Additional Testing: As was mentioned during Transplant Education, the following tests need to be completed and kept current prior to your transplant. Please work with your Primary Care Provider (PCP) to schedule these tests when appropriate and contact your [place] Pilot upon completion. Wellness Check-Up Colonoscopy Dental Once the recommended testing has been completed, your [place] Pilot will contact you regarding a potential date that your candidacy will be presented to the Patient Selection Committee. A final determination of candidacy will be made by our Patient Selection Committee. Next Steps: In addition to completing all of the required testing mentioned above, there are a number of other items that you can continue to work on in order to make your evaluation period move forward in a smooth manner. These include: Get Organized! As mentioned during the presentation, your evaluation period will be different from everyone else?s,and we are asking for you to complete a number of tasks and provide a lot of information. So, now isthe perfect time to get organized! One way to do this may be to obtain/acquire/purchase a 3-ring binder with tabs for information you will need throughout the process. Some of the items you may want toget together include: 1. Demographic Information, including the address, city, state, zip code, and phone numbers for you,your spouse/significant other, Emergency Contact #1 and Emergency Contact #2; 2. Copies of your Insurance Card (front and back) and Prescription Card (front and back); 3. Physician Information (Full Name and Phone Number), including: ? Affiliate Manager; ? Primary Care Physician; ? Dialysis Center; ? Audit Tech; ? Office Director; ? Muck Miner ? Mental Health Professional/Counselors; 4. Medical History & Approximate Date of Diagnosis; 5. Copy of Your End Stage Renal Disease Medical Evidence Report ([id number]) (available from your dialysis center); 6. Surgical History; ? Name of Procedure; ? Approximate Date; ? Hospital Where the Procedure Took Place; 7. Current Medication List, including: ? Name of Medication; ? Dosage; ? How Often Do You Take This Medication; ? Why Do You Take This Medication; ? Where Do You Get Your Prescription Filled; 8. Living Ferreira/[employer] [place]/Durable [employer] [place] for Healthcare; 9. Living Donor Assessment Forms; 10. Results from Tests Ordered During Your Clinic Visit or that have Occurred Within the Last 365 days : ? Cardiac Stress Test; ? Echocardiogram (Echo); ? Cardiac Cath Results; ? Pulmonary Function Testing; ? Ultrasound Results: Kidney/Liver; ? Biopsy Results: Kidney (No Matter When the Biopsy Took Place); ? Most Recent Lab Results, if Available; 11. Results from Testing That You are Responsible For: ? Colonoscopy (>50yrs of Age or PCP Recommended); ? Pre-Transplant Dental Clearance Exam Form; ? Mammogram; ? PAP Smear; Advance Directives Information: Definition: which include Health Care Power of [place] and Living Will Declarations, are written, legal directions about your preferences for medical care if you are unable to make decisions for yourself. Health care power of city attorney (HCPOA) is a legal document in which you designate someone to act on your behalf to make your medical treatment decisions. A HCPOA will become effective only if and when you are declared incapacitated, meaning you are unable to make medical decisions for yourself, whichmust be decided and documented by a treating physician. When you regain the ability to make health-related decisions a HCPOA is automatically withdrawn. A Living Will is a legal document that specifies what medical treatments you would and would not want to be used to keep you alive (e.g. CPR), as well as other decisions such as pain management or organ donation. For any questions regarding Health Care Power of [place] and Living Ferreira please feel free to contact Transplant social workers at [phone]. So, in [place], if you so not complete any of the paperwork listed above making your choices known, what is the order of the decision makers? 1. A person?s LEGAL Spouse: constituted with a marriage certificate. In [place], common law marriage was abolished in June 1991. 2. Children as a collective majority (so not the oldest son or the favorite child they have to make the decisions as a group, also the children have to be adults age 18+); 3. Parents; 4. Siblings (Also as a Collective Majority);this also has to be a collective group decision 5. Grandchildren; 6. Grandparents; 7. Nieces/Nephews; 8. Aunts/Uncles; 9. Great Grandchildren; 10. Great Grandparents; 11. Great Nieces/Great Nephews; 12. First Cousins; 13. Finally, anyone willing to step up and assist the patient; Update Your Vaccination Record! Transplant candidates and recipients are at increased risk for infection due to end-stage organ dysfunction and exogenous immunosuppression respectively. The worldwide increase in travel has led to increases in exposures of patients to vaccine-preventable diseases. These vaccines, if required, must be given prior to transplantation, but not within one month prior.Therefore, in conjunction with your Primary Care Physician, please verify and update, where necessary, your vaccination record. As a Pre-Transplant Candidate, all vaccines should be given as soon as possible when considering transplantation (ideally, as part of pre-transplantation evaluation). These vaccinations include: ? Influenza; ? Hep-B; ? Tetanus (TDap); ? Pneumococcal; Some vaccinations MAY be required in special populations PRIOR TO TRANSPLANT: ? Herpes Zoster (Zostavax) (Age>50yrs); ? Measles, Mumps, Rubella (MMR) (if not documented elsewhere); ? Varicella (Varivax)( if not documented elsewhere); ? Meningococcus (Asplenia, college students, personnel); ? Haemophilus influenza (Hib) (Asplenia); ? Human Papillomavirus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 Based on evaluation, patient meets criteria for no AOD diagnosis. He was provided with no AOD resources at this time. Patient was not referred for AOD assessment/treatment based on evaluation, corroborating information from support, external documentation, and medical record information. First Use Last Use Frequency Amount Method Tobacco ; ; ; Alcohol 18 April 2018- friends bday ; weekly (greatest frequency in - (2x/mo)) ; most recent 1-2 drinks, past 4-5 shots ; mixed drinks, liquor Marijuana [age] sporadically (5x a year) passed joint between friends. smoking Heroin Cocaine Prescription Meds Other Substances Psychosocial impression: Patient is indicated as a Minimally Acceptable Candidate from a psychosocial perspective at this time based on the SIPAT score of 27 with 0 points due to tobacco use. The current identified psychosocial risk factors to include non- adherence. Patient{HAS HAS NOT: has signed the [facility] expectation list and [facility] recommendation list. Patient?s spouse has signed the support person agreement. Based on patient?s presentation, it appears that patient has been forthcoming with evaluation information. Psychosocial evaluation information shared with the multidisciplinary team for continuity of care. Remediation: Given the information obtained and risk factors identified, the following remediation plan was developed and discussed with the patient: monitor patient's medical compliance, obtain additional records,social work to contact dialysis unit, follow-up with community resources ([facility] The previous assessment was conducted by means of corroborating information from patient's chart review, support person(s) report, multiple evidence based clinical tools and a modified version of the [place] Integrated Psychosocial Assessment for Transplant (SIPAT) and the SIPAT-General TXP Long Form? Justin et al, 2008; Justin et al, Psychosomatics 2012.Pool Rogers RN - 07/03/2018 8:30 AM EDTReview of Systems: Const: negative for fever and hot flashes, malaise Ophthalmic: positive for - recent eye exam, pt now req Rx. Pt to purch glasses. ENT: negative heaches CV: negative for chest pain, dyspnea on exertion, edema, irregular heartbeat and shortness of breath Lungs: negative for cough, shortness of breath and sputum changes GI: negative for abdominal pain, blood in stools, change in bowel habits, change in stools, hematemesis and melena, appetite loss and nausea/vomiting : negative for dysuria and hematuria Pt estimates that he produces <1/2c urine weekly. MSK: negative for joint pain or joint deformity Neuro: negative for confusion Psych: positive for - anxiety r/t transplant Derm: negative for rash or pruritus The remainder of the system review is negative. Nursing Assessment: Elia Weston arrived to the [facility] pre transplant clinic with spouse. Education reviewed. Labs were drawn. The patient was evaluated by the nurse coordinator, operating room registered nurse, finance coordinator, the social director and Dr. Elinor MD. Mandeep Mckenzie, FISHING BOAT MATE - 07/03/2018 8:30 AM EDTTimed up and go 13.68 seconds Coding Advisor Left 43.7 pounds Right 13.6 pounds Waist circ 56 inches in this encounter Assessments Diagnosis Pre-transplant evaluation for kidney tra nsplant - Primary End stage renal disease Encounter for screening for other viral diseases Abnormal finding of blood chemistry Other abnormal blood chemistry Encounter for therapeutic drug level mon itoring Encounter for therapeutic drug monitorin g Encounter for preprocedural cardiovascul ar examination Pre-operative cardiovascular examination Uncontrolled type 2 diabetes mellitus wi th ESRD (end-stage renal disease) Type II or unspecified type diabetes kaylyn litus with renal manifestations, uncontrolled Additional Source Comments FOR RECORDS PERTAINING TO PATIENTS WHO ARE OR HAVE BEEN ENROLLED IN A CHEMICAL DEPENDENCY/SUBSTANCE ABUSE PROGRAM, SOME INFORMATION MAY BE OMITTED. This clinical summary was aggregated from multiple sources. Caution should be exercised in using it in the provision of clinical care. This summary normalizes information from multiple sources, and as a consequence, information in this document may materially changethe coding, format and clinical context of patient data. In addition, data may be omittedin some cases. CLINICAL DECISIONS SHOULD BE BASED ON THE PRIMARY CLINICAL RECORDS. [facility] provides no warranty or guarantee of the accuracy or completeness of information in this document. UNRECOGNIZED CONTENT PROVIDED BELOW FOR UNRECOGNIZED SECTION No Status Records FoundNo Status Records FoundNo Status Records FoundNo Status Records FoundNo Status Records FoundNo Status Records FoundNo Status Records FoundNo Status Records FoundNo Status Records Found UNRECOGNIZED CONTENT PROVIDED BELOW FOR UNRECOGNIZED SECTION INFORMATION SOURCE DATE CREATED AUTHOR AUTHOR'S ORGANIZATIO N 12/25/2018 [facility] DATE CREATED AUTHOR AUTHOR'S ORGANIZATIO N 03/18/2018 [facility] DATE CREATED AUTHOR AUTHOR'S ORGANIZATIO N 12/25/2018 [facility] DATE CREATED AUTHOR AUTHOR'S ORGANIZATIO N 03/19/2018 [facility] DATE CREATED AUTHOR AUTHOR'S ORGANIZATIO N 01/04/2019 [facility] DATE CREATED AUTHOR AUTHOR'S ORGANIZATIO N 03/29/2019 [facility] DATE CREATED AUTHOR AUTHOR'S ORGANIZATIO N 04/18/2019 [facility] DATE CREATED AUTHOR AUTHOR'S ORGANIZATIO N 04/19/2019 [facility] DATE CREATED AUTHOR AUTHOR'S ORGANIZATIO N 05/04/2020 [facility] José Miguel hooper UNRECOGNIZED CONTENT PROVIDED BELOW FOR UNRECOGNIZED SECTION Reason for Visit Reason Comments Other Return Call; Reschedule Appt ; Reason Comments Kidney Recipient Evaluation Status Reason Specialty Diagnoses / Referred By Referred To Procedures Contact Contact New Request Transplant Surgery Reason Comments Appointment Reason Comments Other Post-PSC Follow-Up Reason Comments Insurance
== END ==
PROVIDERS: PCP Internal Medicine; Visit Provider Internal Medicine
DX: N18.6 End stage renal disease (principal); Z99.2 Dependence on renal dialysis
CPT/HCPCS: 36415; 80053; 85025

== ENCOUNTER 2020-03-20 19:47 | Emergency (ER) | payer MEDICARE, SELFPAY ==
[2020-02-28 14:47] VITALS: BMI 42.3
[2020-03-20 19:48] VITALS: BP 118/68; PULSE 111; RESP 20; TEMP 37.2; O2SAT 96; BMI 40.1
--- NOTE | 2020-03-20 20:15 | EKG12_ITS ---
Test Reason : SOB Blood Pressure : / mmHG Vent. Rate : 163 BPM Atrial Rate : 394 BPM P-R Int : 000 ms QRS Dur : 060 ms QT Int : 242 ms P-R-T Axes : 068 180 053 degrees QTc Int : 398 ms Normal sinus rhythm Septal infarct , age undetermined Abnormal ECG Confirmed by TAEMRA JOHNS ([id number]), rewrite editor MARGARITO CHANDLER ([id number]) on 03/28/2020 8:19:51 AM Referred By: GLENYS Confirmed By:TAMERA JOHNS
--- NOTE | 2020-03-20 20:16 | ED.VIS.GEN ---
History of Present Illness Chief Complaint: Weakness Narrative: This patient is a 40-year-old male who presents with chills and myalgias. His was seen last night for similar symptoms. Today the patient complains of subjective fevers chills and sweats. He did check his temperature which was normal. He also complains of diffuse body and joint aches as well as a headache. No congestion rhinorrhea sore throat. No chest pain or difficulty breathing. He has a mild productive cough. No vomiting. No diarrhea. He does have a history of end-stage renal disease on hemodialysis, hypertension, atrial fibrillation on Eliquis. Past Medical History - Allergies and Home Meds Allergies/Adverse Reactions: Allergies No Known Allergies Allergy (Verified 02/28/20 14:41) Primary Care Physician: Pawel Banda MD [Primary Care Provider] - Past Medical History: - - Atrial fibrillation, end-stage renal disease on hemodialysis, hypertension Surgical History: herniorrhaphy, - - Family History Paternal Family History: Family History (Last Reviewed 11/16/19 @ 13:19 by Kailyn Bryant) Other Adopted Family History: Reports: - - Patient was adopted and does not know his maternal or paternal family history. Maternal Family History: Family History (Last Reviewed 11/16/19 @ 13:19 by Kailyn Bryant) Other Adopted Family History: Reports: - - Patient was adopted and does not know his maternal or paternal family history. Review of Systems All systems negative except as indicated General: Reports: Chills, Sweats. Denies: Fever Eyes: Denies: Visual changes - bilaterally ENT: Denies: Bilateral ear pain Cardiovascular: Denies: Chest pain Respiratory: Reports: Cough, Sputum. Denies: Dyspnea Gastrointestinal: Denies: Abdominal pain, Nausea, Vomiting, Diarrhea Musculoskeletal: Reports: Myalgias, Arthralgias Skin: Denies: Rash Neurological: Reports: Headache Allergy: Denies: Uticaria Physical Exam Vital Signs/Narrative: Vital Signs Temp Pulse Resp BP Pulse Ox 03/20/20 19:48 99 F 111 H 20 H 118/68 96 Inital Vital Signs reviewed: Yes General: Obese Head: Normocephalic, Atraumatic ENT: Dry mucous membranes Neck: Supple Cardiovascular: Regular rhythm, Tachycardia Respiratory: No distress, CTA bilaterally. Negative for: Rales, Rhonchi, Wheezing Abdomen: Soft, Nontender, Nondistended Extremities: Nontender Skin: Normal color Neurological: Alert Psychological: Normal affect Diagnostic/Tx/Re-eval Impressions Chest X-Ray 03/20/20 21:07 IMPRESSION: Findings suspicious for Covid 19 pneumonia however there are similar findings noted on prior study with relatively improved aeration at the right lung base on the current study. CT would be helpful for more definitive evaluation Electronically Signed: Harpreet Brian MD at 22:21 EDT , Service support , 03/20/20 21:07 Chest 1 View (Portable) [RAD] Stat Laboratory Results 03/20/20 03/20/20 03/20/20 20:30 20:30 20:30 WBC 3.6 L RBC 3.40 L Hgb 10.1 L Hct 32.8 L MCV 96.5 H MCH 29.7 MCHC 30.8 L RDW Std Deviation 57.0 H RDW Coeff of Lance 16.2 H Plt Count 183 MPV 10.7 Immature Gran % (Auto) 0.300 Neut % (Auto) 60.5 Lymph % (Auto) 14.1 L [place] % (Auto) 20.0 H Eos % (Auto) 4.5 Baso % (Auto) 0.6 Absolute Neuts (auto) 2.2 Absolute Lymphs (auto) 0.50 L Nucleated RBC % 0 Differential Comment Diff Path Review May foll Platelet Estimate ADEQUATE RBC Morphology N CHROM Anisocytosis 1+ PT 14.9 INR 1.2 Sodium 136 Potassium 4.5 Chloride 95 L Carbon Dioxide 34.0 H Anion Gap 7 BUN 31 H Creatinine 8.71 H* Estim Creat Clear Calc 11.87 Est GFR (MDRD) Af Amer 9 L Est GFR (MDRD) Non-Af 7 L BUN/Creatinine Ratio 3.6 L Glucose 97 Lactic Acid Calcium 7.6 L Total Bilirubin 0.50 AST 14 L ALT 13 L Alkaline Phosphatase 58 Total Protein 8.1 Albumin 3.0 L Globulin 5.1 H Albumin/Globulin Ratio 0.6 L 03/20/20 20:30 WBC RBC Hgb Hct MCV MCH MCHC RDW Std Deviation RDW Coeff of Lance Plt Count MPV Immature Gran % (Auto) Neut % (Auto) Lymph % (Auto) [place] % (Auto) Eos % (Auto) Baso % (Auto) Absolute Neuts (auto) Absolute Lymphs (auto) Nucleated RBC % Differential Comment Diff Path Review Platelet Estimate RBC Morphology Anisocytosis PT INR Sodium Potassium Chloride Carbon Dioxide Anion Gap BUN Creatinine Estim Creat Clear Calc Est GFR (MDRD) Af Amer Est GFR (MDRD) Non-Af BUN/Creatinine Ratio Glucose Lactic Acid 1.3 Calcium Total Bilirubin AST ALT Alkaline Phosphatase Total Protein Albumin Globulin Albumin/Globulin Ratio - Medical Decision Making Labs as above are unremarkable except for known chronic kidney disease. Lactic acid is normal. Chest x-ray findings are suspicious for COVID-19. Swab was sent but is pending at the time of this dictation. Patient was given morphine for his muscle aches. He is not hypoxic he is not short of breath. His blood pressure had been stable until he was given morphine at which point he developed borderline hypotension with a systolic blood pressure of 96. I do believe this was related to the medication. He requested to be admitted for hospital observation. I did speak to the hospitalist. We do not feel at this time the patient meets admission criteria. Given the setting of the current pandemic this would present unnecessary risk without any definite benefit. He was advised to monitor her symptoms at home and self quarantine. He does however understand that he should return for any new or worsening symptoms including but not limited to shortness of breath. He notes that he only lives about 7 to 10 minutes away so should he develop any worsening symptoms he could contact EMS and be evaluated here in a relatively short period of time. Patient is agreeable this plan. All questions answered at bedside. Since he cannot take anti-inflammatories I did provide a prescription for short course of tramadol for his diffuse muscle pain. ED Disposition - Plan for ED Patient: Disposition: Home or Assisted Living Diagnosis: COVID-19 Instructions: ED Viral Syndrome Prescriptions: traMADol [Ultram] 50 mg PO Q6H PRN 3 Days #12 tab PRN Reason: Pain Prescription Printed Referrals: Pawel Banda MD [Primary Care Provider] -
[2020-03-20 20:37] VITALS: PULSE 112; RESP 18; O2SAT 99
[2020-03-20 20:46] LABS: Absolute Neutrophil Count 2.2 X10^3/uL (2.0-7.7); Basophil# 0.02 X10^3/uL; Basophil% 0.6 % (0-1); Eosinophil# 0.16 X10^3/uL; Eosinophils% 4.5 % (0-5); Hematocrit 32.8 % (40-54); Hemoglobin 10.1 g/dL (13.0-16.5); Lymphocyte % 14.1 % (19-41); Mean Corp Hgb Conc 30.8 g/dL (32-36); Mean Corpuscular Hgb 29.7 pg (27.0-32.0); Mean Corpuscular Volume 96.5 fL (80-94); Mean Platelet Vol. 10.7 fl (6.2-12.0); Monocyte# 0.71 X10^3/uL; NRBC Flagged by Analyzer 0 % (0-5); Neutrophil # 2.15 X10^3/uL (2.7-7.7); Neutrophil % 60.5 % (47-70); POSITIVE DIFFERENTIAL YES; Platelet Count 183 K/mm3 (150-450); RBC Distribution Width CV 16.2 % (11.6-14.6); White Blood Count 3.6 K/mm3 (4.4-11.0)
[2020-03-20 20:49] VITALS: BP 135/76; PULSE 107; RESP 18; TEMP 37.6; O2SAT 96
[2020-03-20 20:54] LABS: International Normalized Ratio 1.2; Prothrombin Time (Protime)PT. 14.9 SECONDS (11.7-14.9)
--- NOTE | 2020-03-20 21:07 | RAD_ITS ---
STUDY: X-RAY CHEST REASON FOR EXAM: Male, 40 years old. possible covid, had symptoms since last Friday, pt was diagnosed with it yesterday TECHNIQUE: AP portable COMPARISON: December 28, 2019 FINDINGS: There is prominence of the interstitial markings and diffuse patchy areas of increased density most severe in the lower lobes highly suspicious for Covid 19 pneumonia.. There is no demonstrated pleural abnormality. Normal size heart. Normal mediastinum and michael. Normal visualized pulmonary arteries. Normal visualized aortic arch and descending thoracic aorta. Dorsal spine demonstrates scoliosis and degenerative change Normal visualized ribs, clavicles, and shoulders. There is no demonstrated abnormality of the visualized soft tissue structures of the upper abdomen. RAD/Chest 1 View (Portable) IMPRESSION: Findings suspicious for Covid 19 pneumonia however there are similar findings noted on prior study with relatively improved aeration at the right lung base on the current study. CT would be helpful for more definitive evaluation Electronically Signed: Harpreet Brian MD at 22:21 EDT , Service support ,
[2020-03-20 21:13] LABS: ALB/GLOB Ratio 0.6 RATIO (0.9-2.4); AST(SGOT) 14 U/L (15-37); Alanine Aminotransfer ALT/SGPT 13 U/L (16-61); Alkaline Phosphatase 58 U/L (45-117); Anion Gap 7 (5-15); BUN 31 mg/dL (7-18); BUN/Creat Ratio 3.6 RATIO (10-20); Calcium,Total 7.6 mg/dL (8.5-10.1); Chloride 95 mmol/L (98-107); Creatinine, Serum 8.71 mg/dL (0.70-1.30); EST Glomerular Filtration Rate 7 mL/min (>60); Est Glom Filt Rate - Afr Amer 9 mL/min (>60); Estimated Creatinine Clearance 11.87 ml/min; Globulin 5.1 g/dL (2.2-4.2); Glucose 97 mg/dL (74-106); Potassium 4.5 mmol/L (3.5-5.1); Protein, Total 8.1 g/dL (6.4-8.2); Sodium Level 136 mmol/L (136-145)
[2020-03-20 21:16] LABS: Differential Indicated SCAN CRITERIA MET
[2020-03-20 21:18] LABS: Anisocytosis 1+; Platelet Estimate ADEQUATE (ADEQ); Red Cell Morphology N CHROM NORMAL (NORM C&C)
[2020-03-20 21:25] LABS: Lactic Acid 1.3 mmol/L (0.4-1.9)
[2020-03-20 21:49] VITALS: BP 116/57; PULSE 112; RESP 16; TEMP 37.3; O2SAT 100
[2020-03-20] MEDS: Ondansetron 4 MG/2 ML Vial IV (22:08)
[2020-03-20] MEDS: Morphine 4 MG/ML Syringe IV (22:09)
[2020-03-20 23:16] VITALS: BP 99/67; PULSE 103; RESP 18; O2SAT 100
[2020-03-21 11:58] LABS: Pathologist Review Reviewed
== END 2020-03-20 23:28 | disposition home or self-care (01) ==
PROVIDERS: Emergency Provider Emergency Medicine; PCP Internal Medicine
DX: U07.1 COVID-19 (principal); E66.9 Obesity, unspecified; I48.91 Unspecified atrial fibrillation; I12.0 Hypertensive chronic kidney disease with stage 5 chronic kidney disease or end stage renal disease; N18.6 End stage renal disease; Z99.2 Dependence on renal dialysis; Z79.01 Long term (current) use of 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s
CPT/HCPCS: 71045; 80053; 83605; 85025; 85610; 87040; 87635; 93005; 96361; 96374; 96375; 99284; G2023; J7040; A4216; J2405; U0003

== ENCOUNTER 2020-04-05 14:16 | Observation (INO) | payer MEDICARE, MEDICAID, SELFPAY ==
[2020-03-30 13:51] VITALS: BMI 40.1
[2020-04-05] VITALS (9 sets, daily range): BP systolic 88–132; BP diastolic 47–84; PULSE 87–103; RESP 13–24; TEMP 36.2–37; O2SAT 98–100; BMI 33.0; BMI 41.0
--- NOTE | 2020-04-05 14:45 | CT_ITS ---
STUDY: CT BRAIN WITHOUT CONTRAST REASON FOR EXAM: Male, 40 years old. APHASIA, CONFUSION RADIATION DOSAGE (If Supplied By Facility): CTDIvol = ( 44.99 ) mGy, DLP = ( 812.98 ) mGycm TECHNIQUE: Transaxial CT imaging of the brain was performed without administration of intravenous contrast material. Individualized dose optimization techniques were used for this CT. COMPARISON: 12/09/2018 FINDINGS: Normal soft tissue structures. Normal calvarium. Normal size ventricles and extra-axial spaces for the patient''s age. Normal white matter tracts of the cerebral hemispheres. Normal basal ganglia and thalami. Normal brainstem. Normal cerebellum. There is no intracranial hemorrhage. There are no findings of an acute ischemic infarction. Normal visualized paranasal sinuses. CT/Brain/Head without Contrast IMPRESSION: Normal unenhanced CT scan of the brain. Electronically Signed: Don Menon MD at 15:44 EDT Tel , Service support ,
--- NOTE | 2020-04-05 14:47 | ED.VIS.STROK ---
History of Present Illness Chief Complaint: General Illness Detail of Chief Complaint: trouble reading/speaking Informant: Patient Onset: Weeks - 1 Context: Gradual Onset Timing: Continuous Quality and Location: Expressive Aphasia Onset: gradual 1 week ago Current Severity: Mild Maximum Severity: Moderate Worsened by: reading as of yesterday Relieved by: nothing Associated Symptoms: Headache - resolved a week ago. Negative for: Nausea, Vomiting, Chest Pain Narrative: Patient was diagnosed with COVID-19 2 weeks ago. He had a headache, mild cough nonproductive, myalgias. No shortness of breath or fevers. The headaches have resolved, the cough is resolved, the pain in his extremities persists, and for the past week he has been having trouble thinking and speaking at times, yesterday he states he was trying to read out loud and was unable although he is able to read to himself. He denies any head injury but states he had a minor fall yesterday that he felt like was due to being generally weak. He has had no dyspnea with exertion. None of the other symptoms are with exertion either. He denies any GI/abdominal symptoms. No chest pain. No focal neurologic symptoms in his extremities since being diagnosed. He is a dialysis patient and has been compliant. 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 No syncope although he has been feeling very lightheaded at times. - Past Medical History (1) Anemia of chronic disorder Status: Chronic (2) ESRD on hemodialysis Status: Chronic (3) Hearing loss Status: Chronic Comment: in both ears (4) 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 due to renal insufficiency Status: Chronic (5) Hypertension Status: Chronic (6) Left shoulder pain Status: Chronic (7) Mitral valve stenosis Status: Chronic (8) PAF (paroxysmal atrial fibrillation) Status: Chronic (9) Sleep apnea Status: Chronic (10) Pulmonary embolism Status: Suspected Past Medical History - Allergies and Home Meds Allergies/Adverse Reactions: Allergies No Known Allergies Allergy (Verified 02/28/20 14:41) Primary Care Physician: Pawel Banda MD [Primary Care Provider] - Surgical History: herniorrhaphy, - Smoking Status: Never smoker - Family History Paternal Family History: Family History (Last Reviewed 11/16/19 @ 13:19 by Kailyn Bryant) Other Adopted Family History: Reports: - - Patient was adopted and does not know his maternal or paternal family history. Maternal Family History: Family History (Last Reviewed 11/16/19 @ 13:19 by Kailyn Bryant) Other Adopted Family History: Reports: - - Patient was adopted and does not know his maternal or paternal family history. Review of Systems General: Reports: Malaise. Denies: Chills, Fever, Sweats Eyes: Denies: Visual changes - bilaterally, Diplopia ENT: Denies: Bilateral ear pain, Rhinorrhea, Sore throat Cardiovascular: Denies: Chest pain, Palpitations Respiratory: Denies: Dyspnea, Cough, Dyspnea on exertion Gastrointestinal: Denies: Abdominal pain, Nausea, Vomiting, Diarrhea, Melena, Hematochezia Genitourinary: Denies: Dysuria, Hematuria, Frequency Musculoskeletal: Reports: Myalgias, Back pain, Extremity Pain - More in the legs than arms. Denies: Arthralgias, Neck pain, Swelling Skin: Denies: Rash, Wounds Neurological: Reports: - - See HPI for speech symptoms. Denies: Headache, Weakness, Numbness STROKE Vital Signs/Narrative: Vital Signs Temp Pulse Resp BP Pulse Ox 04/05/20 14:17 98.1 F 89 16 99/64 99 Inital Vital Signs reviewed: Yes - NIHSS Initial 1a Level of Consciousness: 0 1b LOC Questions (Score 2 if aphasic/stupor): 0 1c LOC Commands (Only score 1st attempt): 0 2 Best Gaze (If aphasic, use reflexive mvmts.): 0 3 Visual: 0 4 Facial Palsy: 0 5 Motor Arm Right (UN = amputation/fusion): 0 5 Motor Arm Left: 0 6 Motor Leg Right: 0 6 Motor Leg Left: 0 7 Limb ataxia (Only + if out of proportion): 0 8 Sensory (Aphasia/stupor=0 or 1, coma=2): 0 9 Best Language: 0 10 Dysarthria (mute, coma=2, intubated=UN): 0 11 Extinction and Inattention (only scored if +): 0 Total Score: 0 General: Well nourished, Well developed, - - well-appearing, nad Head: Normocephalic, Atraumatic Eyes: Perrl, EOMI ENT: Moist mucous membranes, No rhinorrhea Neck: Supple, Nontender, No lymphadenopathy, No JVD Cardiovascular: Regular rate, Regular rhythm, No murmurs Respiratory: No distress, CTA bilaterally, Chest nontender Abdomen: Soft, Nontender, Nondistended, Normal bowel sounds Back: Nontender, Normal Inspection Extremities: Nontender, No edema Skin: Normal color, No rash Neurological: Alert, Oriented x3, Cranial nerves II-XII grossly intact, Normal Strength, Normal Sensation, Normal Gait, - - No dysarthria or aphasia. Patient able to read a paragraph out loud. He occasionally gets a word wrong, and then corrects himself. He has no apparent difficulty or dysarthria. Psychological: Normal affect, Normal Mood Diagnostic/Tx/Re-eval Impressions Brain CT 04/05/20 14:45 IMPRESSION: Normal unenhanced CT scan of the brain. Electronically Signed: Don Menon MD at 15:44 EDT Tel , Service support , Chest X-Ray 04/05/20 15:23 IMPRESSION: Minimal residual changes persist although there has been improvement as compared to prior study. Electronically Signed: Ed Vega at 15:39 EDT , Service support , 04/05/20 14:45 Brain/Head without Contrast [CT] Stat 04/05/20 15:23 Chest 1 View (Portable) [RAD] Stat Laboratory Results 04/05/20 04/05/20 15:00 15:00 WBC 4.3 L RBC 2.89 L Hgb 10.1 L Hct 29.9 L MCV 103.5 H MCH 34.9 H MCHC 33.8 RDW Std Deviation 58.4 H RDW Coeff of Lance 19.8 H Plt Count 221 MPV 10.5 Immature Gran % (Auto) 1.200 H Neut % (Auto) 53.2 Lymph % (Auto) 24.0 [place] % (Auto) 16.7 H Eos % (Auto) 4.2 Baso % (Auto) 0.7 Absolute Neuts (auto) 2.3 Absolute Lymphs (auto) 1.02 Nucleated RBC % 0 Sodium 137 Potassium 4.0 Chloride 96 L Carbon Dioxide 35.0 H Anion Gap 6 BUN 30 H Creatinine 9.06 H* Estim Creat Clear Calc 11.41 Est GFR (MDRD) Af Amer 9 L Est GFR (MDRD) Non-Af 7 L BUN/Creatinine Ratio 3.3 L Glucose 111 H Calcium 8.0 L Troponin I < 0.015 - Rhythm Strip Rhythm Strip: Sinus Rhythm Rate: 90 Ectopy: None - Medical Decision Making Stroke Team Activated: No - sx more than 24 hrs Was Patient considered for Endovascular Intervention?: No IV Alteplase (t-PA) Administered: No Work-up unremarkable including CT of the brain. His chest x-ray is improved compared with 2 weeks ago when he was diagnosed with COVID-19. He does not produce urine, so we were unable to check urinalysis. He has chronic renal failure, his BUN and creatinine are noted. He has no acute electrolyte abnormalities. There is no evidence of stroke on CT, and his symptoms been going on for a week, he is not an IV TPA candidate due to this timing. A tele-neurology consult was obtained. They recommend admitting the patient for further work-up including MRI of the brain. Patient states he is having pain, he was given Tylenol for that, I do not think he needs narcotics although he is requesting that, since he has had myalgias from COVID-19 for 2 weeks. Discussed with hospitalist. ED Disposition - Plan for ED Patient: Disposition: Acute Care Hospital [facility] Diagnosis: COVID-19, Expressive aphasia Referrals: Pawel Banda MD [Primary Care Provider] -
[2020-04-05 15:17] LABS: Absolute Lymphocyte Count 1.02 X10^3/uL (0.83-4.51); Absolute Neutrophil Count 2.3 X10^3/uL (2.0-7.7); Basophil# 0.03 X10^3/uL; Basophil% 0.7 % (0-1); Eosinophil# 0.18 X10^3/uL; Eosinophils% 4.2 % (0-5); Hematocrit 29.9 % (40-54); Hemoglobin 10.1 g/dL (13.0-16.5); Lymphocyte # 1.02 X10^3/ul (4.0); Mean Corp Hgb Conc 33.8 g/dL (32-36); Mean Corpuscular Hgb 34.9 pg (27.0-32.0); Mean Corpuscular Volume 103.5 fL (80-94); Mean Platelet Vol. 10.5 fl (6.2-12.0); Monocyte# 0.71 X10^3/uL; Monocyte% 16.7 % (0-10); NRBC Flagged by Analyzer 0 % (0-5); Neutrophil # 2.26 X10^3/uL (2.7-7.7); Neutrophil % 53.2 % (47-70); Platelet Count 221 K/mm3 (150-450); RBC Distribution Width CV 19.8 % (11.6-14.6); RBC Distribution Width SD 58.4 fl (35.1-43.9); Red Blood Count 2.89 M/mm3 (4.6-6.2); White Blood Count 4.3 K/mm3 (4.4-11.0)
--- NOTE | 2020-04-05 15:23 | RAD_ITS ---
STUDY: X-RAY CHEST REASON FOR EXAM: Male, 40 years old. Check progression of pneumonia TECHNIQUE: Single AP portable view of the chest. COMPARISON: Comparison is made with prior study dated March 20, 2020. FINDINGS: EKG electrodes are seen. Minimal residual changes persist at the lung bases as compared to prior examination. There is no demonstrated pleural abnormality. Normal size heart. Normal mediastinum and michael. Normal visualized pulmonary arteries. Normal visualized aortic arch and descending thoracic aorta. There is a dextroscoliosis of the thoracic spine. There is degenerative osteoarthritis of the bilateral shoulders. This is worse on the left side. There is no demonstrated abnormality of the visualized soft tissue structures of the upper abdomen. RAD/Chest 1 View (Portable) IMPRESSION: Minimal residual changes persist although there has been improvement as compared to prior study. Electronically Signed: Ed Vega, at 15:39 EDT , Service support ,
--- NOTE | 2020-04-05 15:44 | ED.RN ---
PT DOES NOT MAKE URINE. DR LEE NOTIFIED AT THIS TIME. OKAY FOR RN TO CANCEL URINE ORDER.
[2020-04-05 16:08] LABS: Anion Gap 6 (5-15); BUN 30 mg/dL (7-18); BUN/Creat Ratio 3.3 RATIO (10-20); Chloride 96 mmol/L (98-107); Creatinine, Serum 9.06 mg/dL (0.70-1.30); EST Glomerular Filtration Rate 7 mL/min (>60); Est Glom Filt Rate - Afr Amer 9 mL/min (>60); Estimated Creatinine Clearance 11.41 ml/min; Glucose 111 mg/dL (74-106); Sodium Level 137 mmol/L (136-145)
--- NOTE | 2020-04-05 20:25 | HP.PCM_ITS ---
Problem List (1) COVID-19 Status: Acute (2) Expressive aphasia Status: Acute (3) ESRD on hemodialysis Status: Chronic (4) PAF (paroxysmal atrial fibrillation) Status: Chronic History of Present Illness Date of Admission: 04/05/20 Chief Complaint: Inability to complete sentences and difficulty and having conversation - 1week The patient is a 40 year old M with past medical history of ESRD on hemodialysis, now , paroxysmal atrial fibrillation on Eliquis who was recently diagnosed with COVID-19 on 03/20/20. Patient lives at home with her . He denies any fever or chills. He had loss of taste and smell. He had been having his dialysis in isolation on Friday??Friday instead of Friday?Friday?Friday. He has not missed any dialysis session. He has been having persistent myalgias and has received narcotic prescription from his primary care doctor. He presents with 1 week history of word finding difficulty as well as difficulty expressing himself. He denies any tingling or numbness or weakness in any of his extremities. Initial NIHSS score in the ED was 0. Vitals in the ED showed temperature of 90 8.1F, heart rate 89, blood pressure 99/64, respiratory 16, SPO2 was 99% on room air. Admitting blood work showed RBC count of 4.3, hemoglobin 10.1, platelet count 221, sodium 137, potassium 4.2, chloride 96, CO2 to 35, BUN 30, creatinine 9.06, troponin [address] scan of the brain shows no acute abnormality. Chest x-ray shows minimal improved residual changes at the lung bases. Past Medical History Past Medical History (Chronic Problems): Chronic Problems (Last Reviewed 11/16/19 @ 13:19 by Kailyn Bryant) ESRD on hemodialysis (Chronic) PAF (paroxysmal atrial fibrillation) (Chronic) Dialysis patient (Chronic) Left shoulder pain (Chronic) Anemia of chronic disorder (Chronic) Hypertension (Chronic) ESRD (end stage renal disease) (Chronic) Due to hypertension, On hemodialysis, TTS, followed by Dr. 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) Mitral valve disease (Chronic) Mitral valve stenosis (Chronic) Sleep apnea (Chronic) Hearing loss (Chronic) in both ears Medical History: Medical History (Last Reviewed 11/16/19 @ 13:19 by Kailyn Bryant) Mitral valve stenosis (Chronic) I05.0 Sleep apnea (Chronic) G47.30 History of blood clots (Inactive) Z86.718 fistula developed a clot and had to be surgically removed Hearing loss (Chronic) H91.90 in both ears Afib I48.91 ESRD (end stage renal disease) N18.6 Anemia of chronic disease D63.8 HTN (hypertension) I10 Allergies No Known Allergies Allergy (Verified 02/28/20 14:41) Home Medications: Ambulatory Orders Medication Instructions Recorded cinacalcet 60 mg tablet 60 mg PO MOWEFR 10/10/17 Ferric Citrate [Auryxia] 630 mg PO TIDCM 02/05/19 Metoprolol Tartrate [Lopressor 25 mg PO BID #60 tab 07/07/19 (beta zbigniew)] Albuterol Inhaler [Ventolin Hfa] 2 puff INHALATION Q4H PRN PRN #1 10/13/19 inhaler Apixaban [Eliquis] 2.5 mg PO BID 04/05/20 Surgical History: Surgical History (Last Reviewed 11/16/19 @ 13:19 by Kailyn Bryant) history of cather replacement Left Groin 04/21/19 Surgical History: herniorrhaphy, - Psychiatric History: No pertinent psych hx Smoking Status: Former smoker Tobacco Use: Non-smoker Alcohol: None Drugs: None - *Family History Paternal Family History: Family History (Last Reviewed 11/16/19 @ 13:19 by Kailyn Bryant) Other Adopted History Items: - - Patient was adopted and does not know his maternal or paternal family history. Maternal Family History: Family History (Last Reviewed 11/16/19 @ 13:19 by Kailyn Bryant) Other Adopted History Items: - - Patient was adopted and does not know his maternal or paternal family history. Review of Systems Constitutional: Reports: Malaise, Weakness, Fatigue. Denies: Anorexia, Chills, Fever, Night Sweats, Weight Change Eyes: Denies: Blurred vision, Cataracts, Conjunctivae Inflammation, Pain, Redness, Vision Change HEENT: Reports: - - has loss of sense of taste and smell. Denies: Difficulty Hearing, Dysphasia, Head Aches, Sinus Congestion, Sinus Drainage Cardiovascular: Denies: Chest Pain, Claudication, Orthopnea, Palpitations Respiratory: Denies: Cough, Hemoptysis, Shortness of breath at rest, Shortness of breath upon exertion, Sputum production Gastrointestinal: Denies: Abdominal Pain, Constipation, Hematemesis, Hematochezia, Nausea, Vomiting Genitourinary: Denies: Dysuria Musculoskeletal: Denies: Arm Pain, Joint Pain, Joint stiffness, Joint swelling, Joint Tenderness Skin: Denies: Pruritis, Rash, Wounds Neurological: Reports: Change in Speech, Slurred speech. Denies: Balance problems, Blurred vision, Double vision, Focal weakness, Numbness, Tingling, Tremor, Seizures Psychiatric: Denies: Anxiety, Depression, Homicidal Ideations, Suicidal Ideations Endocrine: Denies: Change in Body Habitus, Heat/ Cold Intolerance Hematologic/ Lymphatic: Denies: Easy Bruising, Easy Bleeding VTE Information - Inpt Only VTE Present on Admission: No VTE Pharm Prophylaxis ordered?: Yes Patient Problems: Active and Suspected Problems (Last Reviewed 11/16/19 @ 13:19 by Kailyn Bryant) COVID-19 (Acute) Expressive aphasia (Acute) - Physical Exam Vitals/I&O's: Vital Signs Temp Pulse Resp BP Pulse Ox 98.1 F 92 24 H 131/72 H 100 04/05/20 14:17 04/05/20 19:06 04/05/20 19:06 04/05/20 19:06 04/05/20 19:06 Oxygen Delivery Method Room Air Weight: 104.326 kg Body Mass Index (BMI) 33.0 General: Alert, Oriented x3, Cooperative, No apparent distress HEENT: Atraumatic, PERRLA, EOMI, Normocephalic Oral: Moist Mucosa Neck: Supple Lungs: Clear to auscultation, Normal air movement Cardiovascular: Regular rate, Regular Rhythm, Normal S1, Normal S2 Abdomen: Bowel Sounds Present, Soft, Non Tender, Non-Distended, No Hepato- splenomegaly Extremities: No edema, - - s/p AV graft in the anterior right thigh with thrill and bruit Skin: No rashes Musculoskeletal: No Tenderness to Palpation of Joints or Extremities Lymphatic: No Cervical, Supraclavicular, or Inguinal Adenopathy Neurological: Cranial nerves II-XII grossly intact, Neuro grossly intact Psych/Mental Status: Normal Affect, Appropriate Laboratory Results 04/05/20 15:00: Sodium 137, Potassium 4.0, Chloride 96 L, Carbon Dioxide 35.0 H, Anion Gap 6, BUN 30 H, Creatinine 9.06 H*, Estim Creat Clear Calc 11.41, Est GFR (MDRD) Af Amer 9 L, Est GFR (MDRD) Non-Af 7 L, BUN/Creatinine Ratio 3.3 L, Glucose 111 H, Calcium 8.0 L, Troponin I < 0.015 04/05/20 15:00: WBC 4.3 L, RBC 2.89 L, Hgb 10.1 L, Hct 29.9 L, MCV 103.5 H, MCH 34.9 H, MCHC 33.8, RDW Std Deviation 58.4 H, RDW Coeff of Lance 19.8 H, Plt Count 221, MPV 10.5, Immature Gran % (Auto) 1.200 H, Neut % (Auto) 53.2, Lymph % (Auto) 24.0, [place] % (Auto) 16.7 H, Eos % (Auto) 4.2, Baso % (Auto) 0.7, Absolute Neuts (auto) 2.3, Absolute Lymphs (auto) 1.02, Nucleated RBC % 0 Assessment/Plan All Active Problems (Last Reviewed 11/16/19 @ 13:19 by Kailyn Bryant) COVID-19 (Acute) Expressive aphasia (Acute) Sepsis (Resolved) Community acquired pneumonia (Resolved) Bacteremia (Resolved) Pulmonary edema (Acute) Chest pain, unspecified (Resolved) Pulmonary edema (Acute) History of bacterial endocarditis (Resolved) Chest pain (Resolved) 40 year old M with past medical history of ESRD on hemodialysis, now -Fri, paroxysmal atrial fibrillation on Eliquis who was recently diagnosed with COVID- 19 on 03/20/20. 1. Expressive aphasia, word finding difficulty concerning for possible Acute CVA vs COVID- related encephalopathy/neurologic complication Recently diagnosed with COVID-19 infection on 03/20/20. No respiratory complications. Still with myalgias, loss of sense of smell and taste SOC telemetry neurology consulted from the ED -recommended TSH, B12, serum ammonia, MRI brain, EEG PT/OT/ST consulted. Continue with TIA/CVA protocol 2. Recent COVID-19 infection, diagnosed on 03/20/20 Continue with Tylenol and oxycodone as needed for myalgias 3. ESRD on HD, , nephrology consulted 4. Paroxysmal A. fib, rate controlled, continue on metoprolol, Eliquis 5. Morbid obesity, BMI 41.0, lifestyle modification recommended 6. DVT PPx-on Eliquis OBSV E&M: [id number] Initial observation care L3
[2020-04-05] MEDS: 0.9% Normal Saline 1,000 ML 100 ML IV (21:34)
[2020-04-05] MEDS: Acetaminophen 325 MG Tablet 650 MG PO (21:34)
[2020-04-05 21:50] LABS: AST(SGOT) 17 U/L (15-37); Alanine Aminotransfer ALT/SGPT 18 U/L (16-61); Alkaline Phosphatase 67 U/L (45-117); Bilirubin, Direct 0.16 mg/dL (0.00-0.30); Globulin 5.2 g/dL (2.2-4.2); Protein, Total 8.2 g/dL (6.4-8.2)
[2020-04-05 21:52] LABS: Vitamin B12 534 pg/mL (211-911)
[2020-04-05 21:53] LABS: Thyroid Stim Hormone (TSH) 3.31 uIU/mL (0.358-3.74)
[2020-04-05 22:37] LABS: CPK Total, Creatine Kinase 71 U/L (39-308)
[2020-04-05] MEDS: oxyCODONE 5 MG Tablet PO (22:48)
[2020-04-06] VITALS (12 sets, daily range): BP systolic 96–132; BP diastolic 48–101; PULSE 85–105; RESP 14–18; TEMP 36.3–37.1; O2SAT 95–100; BMI 41.0
[2020-04-06] MEDS: Acetaminophen 325 MG Tablet 650 MG PO (03:30)
[2020-04-06] MEDS: oxyCODONE 5 MG Tablet PO ×2 (04:54→13:51)
[2020-04-06 05:10] LABS: Absolute Lymphocyte Count 0.96 X10^3/uL (0.83-4.51); Absolute Neutrophil Count 2.3 X10^3/uL (2.0-7.7); Basophil# 0.03 X10^3/uL; Basophil% 0.7 % (0-1); Eosinophil# 0.25 X10^3/uL; Hemoglobin 10.2 g/dL (13.0-16.5); Lymphocyte # 0.96 X10^3/ul (4.0); Lymphocyte % 23.1 % (19-41); Mean Corp Hgb Conc 30.9 g/dL (32-36); Mean Corpuscular Hgb 31.3 pg (27.0-32.0); Mean Corpuscular Volume 101.2 fL (80-94); Mean Platelet Vol. 10.3 fl (6.2-12.0); Monocyte# 0.59 X10^3/uL; Monocyte% 14.2 % (0-10); NRBC Flagged by Analyzer 0 % (0-5); Neutrophil # 2.28 X10^3/uL (2.7-7.7); Platelet Count 210 K/mm3 (150-450); RBC Distribution Width CV 17.2 % (11.6-14.6); RBC Distribution Width SD 59.3 fl (35.1-43.9); Red Blood Count 3.26 M/mm3 (4.6-6.2); White Blood Count 4.2 K/mm3 (4.4-11.0)
[2020-04-06 05:51] LABS: ALB/GLOB Ratio 0.6 RATIO (0.9-2.4); AST(SGOT) 16 U/L (15-37); Alanine Aminotransfer ALT/SGPT 16 U/L (16-61); Albumin, Serum 2.9 g/dL (3.2-5.0); Alkaline Phosphatase 64 U/L (45-117); Anion Gap 9 (5-15); BUN 36 mg/dL (7-18); BUN/Creat Ratio 3.6 RATIO (10-20); Calcium,Total 7.7 mg/dL (8.5-10.1); Chloride 93 mmol/L (98-107); Cholesterol 168 mg/dL (200); EST Glomerular Filtration Rate 6 mL/min (>60); Est Glom Filt Rate - Afr Amer 8 mL/min (>60); Estimated Creatinine Clearance 10.24 ml/min; Globulin 5.1 g/dL (2.2-4.2); Glucose 91 mg/dL (74-106); High Density Lipoprotein 34 mg/dL; Potassium 4.2 mmol/L (3.5-5.1); Sodium Level 135 mmol/L (136-145); Triglycerides 147 mg/dL; Very Low Density Lipoprotein 29 mg/dL (5-40)
--- NOTE | 2020-04-06 07:46 | NURSING ---
EEG in progress
[2020-04-06 09:20] LABS: Procalcitonin 0.39 ng/mL (0.00-0.09)
--- NOTE | 2020-04-06 10:10 | PCM.CONS.R ---
Problem List (1) ESRD (end stage renal disease) Status: Chronic Comment: Due to hypertension, On hemodialysis, TTS, followed by Dr. Goncalves Consultation - Renal 04/06/20 PCP/ Referring MD: Requesting physician: Dr Hernandez Primary care physician: Dr. Pawel Banda MD Reason for Consultation:: ESRD - History of Present Illness History of Present Illness: The patient is a 40 year old M who was admitted to hospital with complaints of aphasia. ESRD on HD TTS schedule now. was recently diagnosed with COVID and was discharged home from ER. has been getting dialysis at isolation unit. no new complaints other than aphasia - Allergies Allergies: Allergies No Known Allergies Allergy (Verified 02/28/20 14:41) - Current Medications Current Medications: Current Medications Acetaminophen (Tylenol) 650 mg PO Q6H PRN PRN PRN Reason: Pain Score 1-10/Temp > 100.7 F Last Admin: 04/06/20 03:30 Dose: 650 mg Documented by: Al Hydroxide/Mg Hydroxide (Mylanta Ii) 30 ml PO Q6H PRN PRN PRN Reason: Gastric Burning Albuterol Sulfate (Ventolin Hfa (Sp)) 2 puff INHALATION Q4H PRN PRN PRN Reason: WHEEZING Apixaban (Eliquis) 2.5 mg PO BID MACY Cinacalcet (Sensipar) 60 mg PO MoWeFr@0800 MACY Sodium Chloride () 250 mls @ 15 mls/hr IV .[id number] PRN PRN Reason: Saline Flush Sodium Chloride () 250 mls @ 15 mls/hr IV .[id number] PRN PRN Reason: Additional IVPB Infusion Magnesium Hydroxide (Milk Of Magnesia) 30 ml PO DAILY PRN PRN PRN Reason: Constipation Metoprolol Tartrate (Lopressor (Beta Yossi)) 25 mg PO BID MACY Ondansetron HCl (Zofran) 4 mg IV Q8H PRN PRN PRN Reason: NAUSEA/VOMITING Oxycodone HCl (Oxyir) 5 mg PO Q6H PRN PRN PRN Reason: Pain Score 6-10/10 Last Admin: 04/06/20 04:54 Dose: 5 mg Documented by: Sodium Chloride () 10 - 40 ml IV UD PRN PRN Reason: SALINE FLUSH - Past Medical History Past Medical History (Chronic Problems): Chronic Problems (Last Reviewed 11/16/19 @ 13:19 by Kailyn Bryant) ESRD on hemodialysis (Chronic) PAF (paroxysmal atrial fibrillation) (Chronic) Dialysis patient (Chronic) Left shoulder pain (Chronic) Anemia of chronic disorder (Chronic) Hypertension (Chronic) ESRD (end stage renal disease) (Chronic) Due to hypertension, On hemodialysis, TTS, followed by Dr. 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) Mitral valve disease (Chronic) Mitral valve stenosis (Chronic) Sleep apnea (Chronic) Hearing loss (Chronic) in both ears - Past Surgical History Surgical History: herniorrhaphy, - - Social History Smoking Status: Former smoker Alcohol: None Drugs: None - Family History Paternal Family History: Family History (Last Reviewed 11/16/19 @ 13:19 by Kailyn Bryant) Other Adopted History Items: - - Patient was adopted and does not know his maternal or paternal family history. Maternal Family History: Family History (Last Reviewed 11/16/19 @ 13:19 by Kailyn Bryant) Other Adopted History Items: - - Patient was adopted and does not know his maternal or paternal family history. Review of Systems Constitutional: Denies: Chills, Fever, Weight Change HEENT: Denies: Head Aches, Sinus Congestion, Sinus Drainage Cardiovascular: Denies: Chest Pain, Palpitations Respiratory: Denies: Cough, Shortness of breath at rest, Sputum production Gastrointestinal: Denies: Abdominal Pain, Nausea, Vomiting Genitourinary: Denies: Dysuria Musculoskeletal: Denies: Joint Pain, Joint Tenderness Skin: Denies: Rash, Wounds Neurological: Reports: Slurred speech. Denies: Focal weakness, Numbness, Tingling Psychiatric: Denies: Anxiety, Depression, Homicidal Ideations, Suicidal Ideations Hematologic/ Lymphatic: Denies: Easy Bruising, Easy Bleeding Patient Problems: Active and Suspected Problems (Last Reviewed 11/16/19 @ 13:19 by Kailyn Bryant) COVID-19 (Acute) Expressive aphasia (Acute) - Physical Exam Vitals/I&O's: Vital Signs Temp Pulse Resp BP Pulse Ox 98.7 F 89 16 124/55 H 96 07/09/20 09:18 04/06/20 09:18 04/06/20 09:18 04/06/20 09:18 04/06/20 09:18 Oxygen Flow Rate (L/min) 2 Oxygen Delivery Method Room Air Weight: 129.727 kg Body Mass Index (BMI) 41.0 Intake and Output for Last 24 Hours 04/04/20 04/05/20 04/06/20 23:59 23:59 23:59 Intake Total 240 / 240 1120 / 1120 Balance 240 / 240 1120 / 1120 General: Alert HEENT: Atraumatic, PERRLA, EOMI, Normocephalic Neck: Supple, No JVD, Negative Carotid Bruits Lungs: Clear to auscultation, Normal air movement Cardiovascular: Regular rate, No murmurs Abdomen: Bowel Sounds Present, Soft, Non Tender Extremities: No edema, Capillary Refill Less than 3 Seconds Skin: No rashes, No breakdown Musculoskeletal: No Tenderness to Palpation of Joints or Extremities Psych/Mental Status: Normal Affect, Appropriate Laboratory Results 04/05/20 15:00: Sodium 137, Potassium 4.0, Chloride 96 L, Carbon Dioxide 35.0 H, Anion Gap 6, BUN 30 H, Creatinine 9.06 H*, Estim Creat Clear Calc 11.41, Est GFR (MDRD) Af Amer 9 L, Est GFR (MDRD) Non-Af 7 L, BUN/Creatinine Ratio 3.3 L, Glucose 111 H, Calcium 8.0 L, Troponin I < 0.015 04/05/20 15:00: WBC 4.3 L, RBC 2.89 L, Hgb 10.1 L, Hct 29.9 L, MCV 103.5 H, MCH 34.9 H, MCHC 33.8, RDW Std Deviation 58.4 H, RDW Coeff of Lance 19.8 H, Plt Count 221, MPV 10.5, Immature Gran % (Auto) 1.200 H, Neut % (Auto) 53.2, Lymph % (Auto) 24.0, [place] % (Auto) 16.7 H, Eos % (Auto) 4.2, Baso % (Auto) 0.7, Absolute Neuts (auto) 2.3, Absolute Lymphs (auto) 1.02, Nucleated RBC % 0 04/05/20 15:00: Total Bilirubin 0.30, Direct Bilirubin 0.16, AST 17, ALT 18, Alkaline Phosphatase 67, Total Protein 8.2, Albumin 3.0 L, Globulin 5.2 H 04/05/20 15:00: TSH 3.31 04/05/20 15:00: Vitamin B12 534 04/05/20 15:00: Total Creatine Kinase 71 04/05/20 21:10: Ammonia 15.0 04/06/20 05:00: WBC 4.2 L, RBC 3.26 L, Hgb 10.2 L, Hct 33.0 L, MCV 101.2 H, MCH 31.3, MCHC 30.9 L D, RDW Std Deviation 59.3 H, RDW Coeff of Lance 17.2 H, Plt Count 210, MPV 10.3, Immature Gran % (Auto) 1.000 H, Neut % (Auto) 55.0, Lymph % (Auto) 23.1, [place] % (Auto) 14.2 H, Eos % (Auto) 6.0 H, Baso % (Auto) 0.7, Absolute Neuts (auto) 2.3, Absolute Lymphs (auto) 0.96, Nucleated RBC % 0 04/06/20 05:00: Sodium 135 L, Potassium 4.2, Chloride 93 L, Carbon Dioxide 33.0 H, Anion Gap 9, BUN 36 H, Creatinine 10.10 H*, Estim Creat Clear Calc 10.24, Est GFR (MDRD) Af Amer 8 L, Est GFR (MDRD) Non-Af 6 L, BUN/Creatinine Ratio 3.6 L, Glucose 91, Calcium 7.7 L, Total Bilirubin 0.40, AST 16, ALT 16, Alkaline Phosphatase 64, Total Protein 8.0, Albumin 2.9 L, Globulin 5.1 H, Albumin/Globulin Ratio 0.6 L, Triglycerides 147, Cholesterol 168, LDL Cholesterol 105, VLDL Cholesterol 29, HDL Cholesterol 34 L 04/06/20 05:00: Procalcitonin 0.39 H Current Medications Acetaminophen (Tylenol) 650 mg PO Q6H PRN PRN PRN Reason: Pain Score 1-10/Temp > 100.7 F Last Admin: 04/06/20 03:30 Dose: 650 mg Documented by: Al Hydroxide/Mg Hydroxide (Mylanta Ii) 30 ml PO Q6H PRN PRN PRN Reason: Gastric Burning Albuterol Sulfate (Ventolin Hfa (Sp)) 2 puff INHALATION Q4H PRN PRN PRN Reason: WHEEZING Apixaban (Eliquis) 2.5 mg PO BID MACY Cinacalcet (Sensipar) 60 mg PO MoWeFr@0800 MACY Sodium Chloride () 250 mls @ 15 mls/hr IV .[id number] PRN PRN Reason: Saline Flush Sodium Chloride () 250 mls @ 15 mls/hr IV .[id number] PRN PRN Reason: Additional IVPB Infusion Magnesium Hydroxide (Milk Of Magnesia) 30 ml PO DAILY PRN PRN PRN Reason: Constipation Metoprolol Tartrate (Lopressor (Beta Yossi)) 25 mg PO BID MACY Ondansetron HCl (Zofran) 4 mg IV Q8H PRN PRN PRN Reason: NAUSEA/VOMITING Oxycodone HCl (Oxyir) 5 mg PO Q6H PRN PRN PRN Reason: Pain Score 6-10/10 Last Admin: 04/06/20 04:54 Dose: 5 mg Documented by: Sodium Chloride () 10 - 40 ml IV UD PRN PRN Reason: SALINE FLUSH Assessment/Plan All Active Problems (Last Reviewed 11/16/19 @ 13:19 by Kailyn Bryant) COVID-19 (Acute) Expressive aphasia (Acute) Sepsis (Resolved) Community acquired pneumonia (Resolved) Bacteremia (Resolved) Pulmonary edema (Acute) Chest pain, unspecified (Resolved) Pulmonary edema (Acute) History of bacterial endocarditis (Resolved) Chest pain (Resolved) ESRD. HD today. seen on HD today anemia. gets long acting ANABELLA with HD aphasia. tele neurology note reviewed. MRI today after HD
--- NOTE | 2020-04-06 12:07 | CASEMGMT ---
RN CM Assessment Note -unable to complete assessment currently. Pt is on hemodialysis.Tristen COXN RN ACM
--- NOTE | 2020-04-06 13:13 | DCINST_ITS ---
- Discharge Diagnoses Current Active Problems: Current Active and Chronic Problems (Last Reviewed 11/16/19 @ 13:19 by Kailyn Bryant) COVID-19 (Acute) Expressive aphasia (Acute) You will use the following diet at home:: Cardiac, Renal (restricted protein/sodium) Discharge Activity: Return to Normal Activity Weight Bearing Status: Weight bearing as tolerated Allergies/Adverse Reactions: Allergies No Known Allergies Allergy (Verified 02/28/20 14:41) Medications to take at Discharge cinacalcet 60 mg tablet 60 mg PO MOWEFR 10/10/17 Ferric Citrate [Auryxia] 630 mg PO TIDCM 02/05/19 Metoprolol Tartrate [Lopressor (beta zbigniew)] 25 mg PO BID #60 tab 07/07/19 Albuterol Inhaler [Ventolin Hfa] 2 puff INHALATION Q4H PRN PRN #1 inhaler 10/13/19 Apixaban [Eliquis] 2.5 mg PO BID 04/05/20 Primary Care Physician: Pawel Banda MD [Primary Care Provider] - Please follow up with your Primary Care Physician in: 1 week. Test Results: Test results from this visit will be discussed in further detail at your follow- up appointment, if applicable.
--- NOTE | 2020-04-06 13:19 | DIALYSIS ---
Hemodialysis completed, using right thigh graft. Fluid removed was 4 liters. Patient tolerated well. Next treatment will be Friday04/08/20. See dialysis flow sheet for details.
--- NOTE | 2020-04-06 13:50 | PCM.DC.SUM ---
Discharge Date and Diagnosis Date of Admission: 04/05/20 Date of Discharge: 04/06/20 - Primary Discharge Diagnosis Acute Problems: Active Problems (Last Reviewed 11/16/19 @ 13:19 by Kailyn Bryant) #1 expressive aphasia, likely psychogenic, resolved, acute stroke ruled out. #2 recent history of COVID-19. - Secondary Discharge Diagnosis Chronic Problems: Chronic Problems (Last Reviewed 11/16/19 @ 13:19 by Kailyn Bryant) ESRD on hemodialysis (Chronic) PAF (paroxysmal atrial fibrillation) (Chronic) Dialysis patient (Chronic) Left shoulder pain (Chronic) Anemia of chronic disorder (Chronic) Hypertension (Chronic) ESRD (end stage renal disease) (Chronic) Due to hypertension, On hemodialysis, TTS, followed by Dr. 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) Mitral valve disease (Chronic) Mitral valve stenosis (Chronic) Sleep apnea (Chronic) Hearing loss (Chronic) in both ears Hospital Course and Treatment Imaging Results: 04/06/20 14:00 Brain without Contrast [MRI] Urgent Clinical Impression(s) from Imaging Studies Brain CT 04/05/20 14:45 IMPRESSION: Normal unenhanced CT scan of the brain. Electronically Signed: Don Menon MD at 15:44 EDT Tel , Service support , Chest X-Ray 04/05/20 15:23 IMPRESSION: Minimal residual changes persist although there has been improvement as compared to prior study. Electronically Signed: Ed Vega, at 15:39 EDT , Service support , Brain MRI 04/06/20 14:00 IMPRESSION: Involutional changes of the brain, as described above. No acute infarct. Electronically Signed: Don Menon MD at 16:24 EDT Tel , Service support , [facility] [place]. Operations: None Procedures: Electroencephalogram, EKG Summary of Care Provided: Patient seen and examined on the day of discharge and appeared to be stable be discharged home. He was talking fluently without any trouble speaking. No more aphasia. Denied any other focal symptoms. He received hemodialysis. His vital signs were stable. The patient is a 40 year old M presented to the emergency room because of inability to complete sentences and difficulty getting the words out. Apart from this expressive aphasia, he has no other symptoms. Patient denied slurred speech, blurred vision, focal motor weakness, numbness or tingling. CT scan brain showed no acute findings. Routine blood work was remarkable for chronic anemia as well as clinically elevated BUN and creatinine secondary to ESRD and being on dialysis. EKG revealed no acute ischemic changes. Troponin was negative. Chest x-ray showed no acute findings. Patient had a history of COVID-19 that was diagnosed on March 20. During this hospital stay. Patient reported mild cough, no significant shortness of breath. He has been afebrile, no leukocytosis. He required respiratory oxygen which is attributed to volume overload before dialysis. After dialysis, patient was able to come off oxygen and his respiratory status was stable. Patient stated that he completed quarantine for 2 weeks after he was diagnosed with COVID-19. He underwent MRI brain that showed no evidence of acute infarct or hemorrhage. Acute stroke ruled out. His symptoms are likely due to psychogenic element. [facility] [place] and recommended MRI which was done as well as EEG. EEG done and was unremarkable, no evidence of epileptic focus. Patient discharged home in a stable medical condition, discharged on his previous home medications without any changes, recommended follow-up with PCP in 1 week and follow-up with nephrology as scheduled. - Physical Exam Vitals/I&O's: Vital Signs Temp Pulse Resp BP Pulse Ox 97.4 F L 93 17 102/48 L 96 04/06/20 13:15 04/06/20 13:15 04/06/20 13:15 04/06/20 13:15 04/06/20 09:18 Oxygen Flow Rate (L/min) 1 Oxygen Delivery Method Nasal Cannula Weight: 285 lb 15.985 oz Body Mass Index (BMI) 41.0 Intake and Output for Last 24 Hours 04/04/20 04/05/2020 23:59 23:59 23:59 Intake Total 240 / 240 1120 / 1120 Output Total 4000 / 4000 Balance 240 / 240 -2880 / -2880 General: Alert, Oriented x3, Cooperative, No apparent distress HEENT: Atraumatic, PERRLA, EOMI, Normocephalic Oral: Moist Mucosa, No Gingival or Mucosal Lesions/ Ulcerations Neck: Supple, No JVD, Negative Carotid Bruits, Trachea Midline, Thyroid Normal Size and Texture Lungs: Clear to auscultation, Normal air movement, No rhonchi, No wheeze, No rales, Diminished Cardiovascular: Regular rate, Regular Rhythm, Normal S1, Normal S2, PMI Normal Abdomen: Bowel Sounds Present, Soft, Non Tender, Non-Distended, No Hepato-splenomegaly, Obese Extremities: No clubbing, No cyanosis, No edema Skin: No rashes, No breakdown Lymphatic: No Cervical, Supraclavicular, or Inguinal Adenopathy Neurological: Cranial nerves II-XII grossly intact, Neuro grossly intact Psych/Mental Status: Flat Affect Laboratory Results 04/05/20 15:00: Sodium 137, Potassium 4.0, Chloride 96 L, Carbon Dioxide 35.0 H, Anion Gap 6, BUN 30 H, Creatinine 9.06 H*, Estim Creat Clear Calc 11.41, Est GFR (MDRD) Af Amer 9 L, Est GFR (MDRD) Non-Af 7 L, BUN/Creatinine Ratio 3.3 L, Glucose 111 H, Calcium 8.0 L, Troponin I < 0.015 04/05/20 15:00: WBC 4.3 L, RBC 2.89 L, Hgb 10.1 L, Hct 29.9 L, MCV 103.5 H, MCH 34.9 H, MCHC 33.8, RDW Std Deviation 58.4 H, RDW Coeff of Lance 19.8 H, Plt Count 221, MPV 10.5, Immature Gran % (Auto) 1.200 H, Neut % (Auto) 53.2, Lymph % (Auto) 24.0, [place] % (Auto) 16.7 H, Eos % (Auto) 4.2, Baso % (Auto) 0.7, Absolute Neuts (auto) 2.3, Absolute Lymphs (auto) 1.02, Nucleated RBC % 0 04/05/20 15:00: Total Bilirubin 0.30, Direct Bilirubin 0.16, AST 17, ALT 18, Alkaline Phosphatase 67, Total Protein 8.2, Albumin 3.0 L, Globulin 5.2 H 04/05/20 15:00: TSH 3.31 04/05/20 15:00: Vitamin B12 534 04/05/20 15:00: Total Creatine Kinase 71 04/05/20 21:10: Ammonia 15.0 04/06/20 05:00: WBC 4.2 L, RBC 3.26 L, Hgb 10.2 L, Hct 33.0 L, MCV 101.2 H, MCH 31.3, MCHC 30.9 L D, RDW Std Deviation 59.3 H, RDW Coeff of Lance 17.2 H, Plt Count 210, MPV 10.3, Immature Gran % (Auto) 1.000 H, Neut % (Auto) 55.0, Lymph % (Auto) 23.1, [place] % (Auto) 14.2 H, Eos % (Auto) 6.0 H, Baso % (Auto) 0.7, Absolute Neuts (auto) 2.3, Absolute Lymphs (auto) 0.96, Nucleated RBC % 0 04/06/20 05:00: Sodium 135 L, Potassium 4.2, Chloride 93 L, Carbon Dioxide 33.0 H, Anion Gap 9, BUN 36 H, Creatinine 10.10 H*, Estim Creat Clear Calc 10.24, Est GFR (MDRD) Af Amer 8 L, Est GFR (MDRD) Non-Af 6 L, BUN/Creatinine Ratio 3.6 L, Glucose 91, Calcium 7.7 L, Total Bilirubin 0.40, AST 16, ALT 16, Alkaline Phosphatase 64, Total Protein 8.0, Albumin 2.9 L, Globulin 5.1 H, Albumin/Globulin Ratio 0.6 L, Triglycerides 147, Cholesterol 168, LDL Cholesterol 105, VLDL Cholesterol 29, HDL Cholesterol 34 L 04/06/20 05:00: Procalcitonin 0.39 H Current Medications Acetaminophen (Tylenol) 650 mg PO Q6H PRN PRN PRN Reason: Pain Score 1-10/Temp > 100.7 F Last Admin: 04/06/20 03:30 Dose: 650 mg Documented by: Al Hydroxide/Mg Hydroxide (Mylanta Ii) 30 ml PO Q6H PRN PRN PRN Reason: Gastric Burning Albuterol Sulfate (Ventolin Hfa (Sp)) 2 puff INHALATION Q4H PRN PRN PRN Reason: WHEEZING Apixaban (Eliquis) 2.5 mg PO BID MACY Cinacalcet (Sensipar) 60 mg PO MoWeFr@0800 MACY Sodium Chloride () 250 mls @ 15 mls/hr IV .[id number] PRN PRN Reason: Saline Flush Sodium Chloride () 250 mls @ 15 mls/hr IV .[id number] PRN PRN Reason: Additional IVPB Infusion Magnesium Hydroxide (Milk Of Magnesia) 30 ml PO DAILY PRN PRN PRN Reason: Constipation Metoprolol Tartrate (Lopressor (Beta Yossi)) 25 mg PO BID MACY Ondansetron HCl (Zofran) 4 mg IV Q8H PRN PRN PRN Reason: NAUSEA/VOMITING Oxycodone HCl (Oxyir) 5 mg PO Q6H PRN PRN PRN Reason: Pain Score 6-10/10 Last Admin: 04/06/20 04:54 Dose: 5 mg Documented by: Sodium Chloride () 10 - 40 ml IV UD PRN PRN Reason: SALINE FLUSH Discharge Activity: Return to Normal Activity Weight Bearing Status: Weight bearing as tolerated Home Medications: Medications to take at Discharge cinacalcet 60 mg tablet 60 mg PO MOWEFR 10/10/17 Ferric Citrate [Auryxia] 630 mg PO TIDCM 02/05/19 Metoprolol Tartrate [Lopressor (beta yossi)] 25 mg PO BID #60 tab 07/07/19 Albuterol Inhaler [Ventolin Hfa] 2 puff INHALATION Q4H PRN PRN #1 inhaler 10/13/19 Apixaban [Eliquis] 2.5 mg PO BID 04/05/20 Primary Care Physician: Pawel Banda MD [Primary Care Provider] - Please follow up with your Primary Care Physician in: 1 week. Disposition: Home Minutes spent on discharge:: 28 Patient Condition:: Stable Medical Necessity - Tobacco Use Smoking Status: Former smoker Tobacco Use: Non-smoker Meaningful Use Info Meaningful Use Diagnoses (Choose all that apply): None applicable Inpatient E&M: [id number] [facility]
--- NOTE | 2020-04-06 14:00 | MRI_ITS ---
STUDY: MRI BRAIN WITHOUT CONTRAST REASON FOR EXAM: Male, 40 years old. neuro deficit TECHNIQUE: Standardized multiplanar fat and water weighted pulse sequences were obtained. COMPARISON: CT 04/05/2020 FINDINGS: There is mild cerebral atrophy with widening of the extra-axial spaces and ventricular dilatation. There are a limited number of small white matter hyperintensities, distributed throughout the deep white matter tracts of the cerebral hemispheres, consistent with mild chronic white matter ischemic changes. There is no evidence for recent intracranial ischemia or other cause of cytotoxic edema on diffusion weighted imaging (DWI). Normal T2* images of the brain without demonstrated susceptibility artifact. There is no demonstrated hemosiderin stain. Normal bilateral basal ganglia. Normal thalami. There is no extra-axial fluid accumulation. Normal flow voids within the major intracranial circulation suggesting patency by spin echo criteria. There is enlargement of the sella turcica with increased CSF within the sella and flattening of the pituitary gland consistent with an empty sellar syndrome. Normal infundibular stalk, hypothalamus, and optic chiasm. Normal tectal plate and pineal gland. Normal midbrain, nereida and medulla. Normal cerebellum. Normal basal cisterns. Normal bilateral temporal bones. Normal bilateral internal auditory canals. No demonstrated orbital abnormality, within the constraints of a routine brain study. Normal visualized paranasal sinuses. Normal calvarium and skull base. Normal visualized soft tissue structures. Normal visualized upper cervical spine. MRI/Brain without Contrast IMPRESSION: Involutional changes of the brain, as described above. No acute infarct. Electronically Signed: Don Menon MD at 16:24 EDT Tel , Service support ,
--- NOTE | 2020-04-06 14:50 | NURSING ---
Pt to MRI via [facility] from radiology
--- NOTE | 2020-04-06 17:03 | PCM.PROGNOTE ---
Patient Problems: Active and Suspected Problems (Last Reviewed 11/16/19 @ 13:19 by Kailyn Bryant) COVID-19 (Acute) Expressive aphasia (Acute) - Physical Exam Vitals/I&O's: Vital Signs Temp Pulse Resp BP Pulse Ox 98.1 F 105 H 14 96/56 L 100 04/06/20 16:10 04/06/20 16:10 04/06/20 16:10 04/06/20 16:10 04/06/20 16:10 Oxygen Flow Rate (L/min) 2 Oxygen Delivery Method Room Air Weight: 285 lb 15.985 oz Body Mass Index (BMI) 41.0 Intake and Output for Last 24 Hours 04/04/20 04/05/20 04/06/20 23:59 23:59 23:59 Intake Total 240 / 240 1120 / 1120 Output Total 4000 / 4000 Balance 240 / 240 -2880 / -2880 General: Alert, Oriented x3, Cooperative, No apparent distress HEENT: Atraumatic, PERRLA, EOMI, Normocephalic Oral: Moist Mucosa, No Gingival or Mucosal Lesions/ Ulcerations Laboratory Results 04/05/20 15:00: Total Bilirubin 0.30, Direct Bilirubin 0.16, AST 17, ALT 18, Alkaline Phosphatase 67, Total Protein 8.2, Albumin 3.0 L, Globulin 5.2 H 04/05/20 15:00: TSH 3.31 04/05/20 15:00: Vitamin B12 534 04/05/20 15:00: Total Creatine Kinase 71 04/05/20 21:10: Ammonia 15.0 04/06/20 05:00: WBC 4.2 L, RBC 3.26 L, Hgb 10.2 L, Hct 33.0 L, MCV 101.2 H, MCH 31.3, MCHC 30.9 L D, RDW Std Deviation 59.3 H, RDW Coeff of Lance 17.2 H, Plt Count 210, MPV 10.3, Immature Gran % (Auto) 1.000 H, Neut % (Auto) 55.0, Lymph % (Auto) 23.1, [place] % (Auto) 14.2 H, Eos % (Auto) 6.0 H, Baso % (Auto) 0.7, Absolute Neuts (auto) 2.3, Absolute Lymphs (auto) 0.96, Nucleated RBC % 0 04/06/20 05:00: Sodium 135 L, Potassium 4.2, Chloride 93 L, Carbon Dioxide 33.0 H, Anion Gap 9, BUN 36 H, Creatinine 10.10 H*, Estim Creat Clear Calc 10.24, Est GFR (MDRD) Af Amer 8 L, Est GFR (MDRD) Non-Af 6 L, BUN/Creatinine Ratio 3.6 L, Glucose 91, Calcium 7.7 L, Total Bilirubin 0.40, AST 16, ALT 16, Alkaline Phosphatase 64, Total Protein 8.0, Albumin 2.9 L, Globulin 5.1 H, Albumin/Globulin Ratio 0.6 L, Triglycerides 147, Cholesterol 168, LDL Cholesterol 105, VLDL Cholesterol 29, HDL Cholesterol 34 L 04/06/20 05:00: Procalcitonin 0.39 H Current Medications Acetaminophen (Tylenol) 650 mg PO Q6H PRN PRN PRN Reason: Pain Score 1-10/Temp > 100.7 F Last Admin: 04/06/20 03:30 Dose: 650 mg Documented by: Al Hydroxide/Mg Hydroxide (Mylanta Ii) 30 ml PO Q6H PRN PRN PRN Reason: Gastric Burning Albuterol Sulfate (Ventolin Hfa (Sp)) 2 puff INHALATION Q4H PRN PRN PRN Reason: WHEEZING Apixaban (Eliquis) 2.5 mg PO BID [facility] Last Admin: 04/06/20 13:51 Dose: Not Given Documented by: Cinacalcet (Sensipar) 60 mg PO MoWeFr@0800 [facility] Sodium Chloride () 250 mls @ 15 mls/hr IV .[id number] PRN PRN Reason: Saline Flush Sodium Chloride () 250 mls @ 15 mls/hr IV .[id number] PRN PRN Reason: Additional IVPB Infusion Magnesium Hydroxide (Milk Of Magnesia) 30 ml PO DAILY PRN PRN PRN Reason: Constipation Metoprolol Tartrate (Lopressor (Beta Yossi)) 25 mg PO BID [facility] Last Admin: 04/06/20 13:53 Dose: Not Given Documented by: Ondansetron HCl (Zofran) 4 mg IV Q8H PRN PRN PRN Reason: NAUSEA/VOMITING Oxycodone HCl (Oxyir) 5 mg PO Q6H PRN PRN PRN Reason: Pain Score 6-1010 Last Admin: 04/06/20 13:51 Dose: 5 mg Documented by: Sodium Chloride () 10 - 40 ml IV UD PRN PRN Reason: SALINE FLUSH Medical Necessity - Tobacco Use Smoking Status: Former smoker Tobacco Use: Non-smoker Assessment/Plan All Active Problems (Last Reviewed 11/16/19 @ 13:19 by Kailyn Bryant) COVID-19 (Acute) Expressive aphasia (Acute) Sepsis (Resolved) Community acquired pneumonia (Resolved) Bacteremia (Resolved) Pulmonary edema (Acute) Chest pain, unspecified (Resolved) Pulmonary edema (Acute) History of bacterial endocarditis (Resolved) Chest pain (Resolved) OBSV E&M: 91187 Subsequent observation care L2
== END 2020-04-06 19:11 | disposition home or self-care (01) ==
LOC: ED 20:00 → ICU 22:50
PROVIDERS: Admitting Provider Internal Medicine; Emergency Provider Emergency Medicine; PCP Internal Medicine; Visit Provider Hospitalist
DX: U07.1 COVID-19 (principal); R47.01 Aphasia; I12.0 Hypertensive chronic kidney disease with stage 5 chronic kidney disease or end stage renal disease; E66.01 Morbid (severe) obesity due to excess calories; I48.0 Paroxysmal atrial fibrillation; N18.6 End stage renal disease; Z79.01 Long term (current) use of 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s; Z79.899 Other long term (current) drug therapy; Z99.2 Dependence on renal dialysis; N25.81 Secondary hyperparathyroidism of renal origin; G47.30 Sleep apnea, unspecified; D63.8 Anemia in other chronic diseases classified elsewhere; Z86.711 Personal history of pulmonary embolism; R29.700 NIHSS score 0; Z87.891 Personal history of nicotine dependence
CPT/HCPCS: 70450; 70551; 71045; 80048; 80053; 80061; 80076; 82140; 82550; 82607; 84145; 84443; 84484; 85025; 90937; 95819; 96105; 96360; 96361; 99218; 99285; J7030; A4216; G0257; G0378

== ENCOUNTER 2020-06-09 07:38 | Outpatient (RCR) | payer MEDICARE, MEDICAID, SELFPAY ==
[2020-05-22 14:02] VITALS: BMI 41.0
--- NOTE | 2020-06-14 13:46 | HP.FCE ---
Floor (Occasional 1-33% of Day): 10# Floor (Frequent 34-66% of Day): NA Floor (Constant 67-100% of Day): NA Floor PDL: Sedentary Knee (Occasional 1-33% of Day): 10# Knee (Frequent 34-66% of Day): NA Knee (Constant 67-100% of Day): NA Knee PDL: Sedentary Waist (Occasional 1-33% of Day): 10# Waist (Frequent 34-66% of Day): NA Waist (Constant 67-100% of Day): NA Waist PDL: Sedentary Shoulder PDL: No Ability Overhead PDL: No Ability Bending: Occasional Ability (1-33% of day) Comments: low Squatting: Occasional Ability (1-33% of day) Comments: low occasional ability with external support Kneeling: No Ablility (0% of day) Reaching out: No Ablility (0% of day) Reaching up: No Ablility (0% of day) Sitting: Frequent Ability (34-66% of day) Walking: Occasional Ability (1-33% of day) Comments: low occasional ability Standing: Occasional Ability (1-33% of day) Comments: low occasional ability Duration Sedentary Sedentary Light Light Light Medium Medium Medium Heavy Very Heavy Heavy Occasional (0-33% of day) Frequent (34-66% of day) Constant (67-100% of day) 10 # Negligible Negligible 15 # 8 # Negligible 20 # 10# Negli. 35 # 18 # 7 # 50 # 25 # 10 # 75 # 100 # >100 # 38 # 50 # >50 # 15 # 20 # >20 # Height: 1.78 m Weight:: 130.181 kg Hand Dominance: right Medical History Including Restrictions: This 40-year-old male states he has been going through dialysis for 13 years due to end stage renal failure. Pt states he does get SOB with ambulation. Pt. states he was dx with COVID-19 in February and feels he continues to struggle with breathing endurance while ambulating long distances. Pt states he was able to get on disability in [id number]. Pt states pain and weakness limit him from daily tasks. Diagnoses: expressive aphasia. essential hypertension. paroxysmal A-fib. ESRD on hemodialysis. bilateral shoulder pain. hearing loss dx about 5 years ago. Anemia of chronic disease. hx of blood clots. neuropathy Symptoms: tingling/numbess in bilateral hands and feet. pain in bilateral shoulders. limited shoulder ROM. weakness. dizziness. low blood pressure. tiredness Pain: pt reports current pain while sitting in bilateral shoulders is 8/10. pt states pain increases the more he is moving around. Work History: pt states he has attepted to work about a year ago and was only able to work there 2 weeks. Pt can not recall where he was employed at. Behavioral: Pt was cooperative during the assessment ADLS: pt states he lives in a 2-story home with no entry steps- pt does have a flight of stairs to get to bedrooms. PT lives with and son (age 5). PT states his does all cooking, cleaning and laundry. pt states does grocery shopping, if he goes, he uses electric cart. pt states he is ind. with own bathing and dressing tasks. pt does drive ind. to his dialysis apts. ROM: pt demo with bilateral shoulder flex at 30*. bilateral hip flex at 80*. all other ROM is WFL. Palpation to left shoulder indicates left shoulder subluxation about 3 Strength: Bilateral biceps/tricesp 4/5. shoulders not tested due to limitations in pts ROM. 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 right thumb 3.22 left 3.22. right IF 3.22 left 3.22. right MF 3.22 left 3.22. right RF 2.83 left 2.83. right LF 2.83 left 2.83 Fine Motor: 9-hole peg test. right 49.57 sec. placing pt in 0% for age. left 50.34 sec. placing pt in 0% for age Balance: no loss of balanced noted during assessment Bending: pt demo the ability to bend forward three times with external support - pt pain in low back increased from 0/10-5/10. pts heart rate at 95 following pt demo the ability to bend forward 7 of the 10 asked times pt back pain increase again to 5/10 pain. pts SOB and Sp02 dropped from 99 to 92 heartrate 89. pt sat for 2 min and pain in back decreased to 2/10- pt can bend forward on a low occasional ability Squatting: pt demo the ability to squat three times with use of external support. pts heart rate 98 and bilateral knee pain 4/10 pt can squat on a low occasional ability Kneeling: unable Reaching out/up: pt unable to reach up/out Walking: pt ambulates with a short gaited reciprical gait pattern for Standing: pt demo the ability to stand for 4 min with shifting body weight- pt c/o low back, knee pain pt can stand on a low occasional ability Sitting: pt demo the ability to sit for 30 min with expressed discomfort by rolling neck and left shoulder. pt reported sitting his left shoulder 7/10 sitting. pt can sit on occasional ability Climbing Stairs: pt demo the ability to ascend 10 stairs with a reciprical step pattern and use of bilateral hand raisl- pt stood at the top of the stairs for 1 min prior to decending stairs with left leg stepping down with use of bilateral hand rails. while leaning body weight left hp on rail as he is descending Floor Lift: pt demo the ability to lift 10 # maximally from floor level with poor ability. heart rate increase to 101 Knee Lift: pt demo the ability to lift 10# maximally from knee level with poor ability Waist Lift: pt demo the ability to lift 10# maximally from waist level Shoulder Lift: no ability Overhead Lift: no ability Carrying: pt demo the ability to carry 10# for 6 feet with arms straight and weight against his body pt SOB with task Comments: pt limited with strength and fatigue to perform functional tasks
--- NOTE | 2020-06-14 13:47 | HP.OT.NRP ---
REJI DE LA CRUZ GRABIEL was seen in my office for initial evaluation on . The following Plan of Care was established for this patient: This patient was last seen in our office 06/09/20. Pertinent comments regarding their Occupational therapy will appear below: Pt seen for FCE only. At this point I will be discontinuing this patient from occupational therapy. I would be happy to see this patient again in the future if found appropriate by the physician. Thank you! Mary Gama, OTR/L, CHT
== END 2020-06-09 19:00 | disposition home or self-care (01) ==
LOC: OT 07:38
PROVIDERS: PCP Internal Medicine; Referring Provider Internal Medicine; Visit Provider Internal Medicine
DX: Z76.89 Persons encountering health services in other specified circumstances (principal); N18.6 End stage renal disease; Z99.2 Dependence on renal dialysis
CPT/HCPCS: 97750

== ENCOUNTER 2020-06-10 02:20 | Observation (INO) | payer MEDICARE, MEDICAID, SELFPAY ==
[2020-05-22 14:02] VITALS: BMI 41.0
[2020-06-10] VITALS (24 sets, daily range): BP systolic 72–122; BP diastolic 43–80; PULSE 25–137; RESP 16–22; TEMP 36.1–37.2; O2SAT 95–100; BMI 42.7; BMI 42.0; BMI 42.1
--- NOTE | 2020-06-10 02:37 | RAD_ITS ---
STUDY: X-RAY CHEST REASON FOR EXAM: Male, 40 years old. Chest pain, fatigue, palpitations started today. TECHNIQUE: Portable chest COMPARISON: 04/05/2020 FINDINGS: There is stable significant S-shaped thoracolumbar spine scoliosis. There are bilateral pulmonary opacities. There is no significant consolidation. Normal size heart. Normal mediastinum and michael. Normal visualized pulmonary arteries. Normal visualized aortic arch and descending thoracic aorta. Normal visualized thoracic spine. Normal visualized ribs, clavicles, and shoulders. There is no demonstrated abnormality of the visualized soft tissue structures of the upper abdomen. RAD/Chest 1 View (Portable) IMPRESSION: Bilateral pulmonary opacities suspicious for pneumonia, atypical viral pneumonia and/or hypoventilatory changes Significant stable S-shaped thoracolumbar spine scoliosis partially included on the [id number] which could be further evaluated with scoliosis series as an outpatient with clinical correlation and physical exam Electronically Signed: Harley Miranda, at 3:42 EDT Tel , Service support ,
--- NOTE | 2020-06-10 02:37 | EKG12_ITS ---
Test Reason : CP Blood Pressure : / mmHG Vent. Rate : 122 BPM Atrial Rate : 094 BPM P-R Int : 000 ms QRS Dur : 086 ms QT Int : 328 ms P-R-T Axes : 000 183 054 degrees QTc Int : 467 ms Atrial fibrillation with rapid ventricular response Low voltage QRS Possible Anterolateral infarct , age undetermined Abnormal ECG Confirmed by SALMA STAHL, JACOBY ([id number]), editor continuity and script MARGARITO CHANDLER ([id number]) on 06/14/2020 11:30:12 AM Referred By: TRUNG Confirmed By:JACOBY MARSH MD
--- NOTE | 2020-06-10 02:38 | ED.VIS.GEN ---
History of Present Illness Chief Complaint: Chest Pain Informant: Patient Onset: Yesterday Current Severity: Moderate Maximum Severity: Moderate Narrative: Present secondary to burning sensation in his chest. He states that yesterday afternoon at work he felt palpitations and thought he might be back in atrial fibrillation. He admits that he has not been compliant with his Eliquis. Patient does have a history of paroxysmal A. fib along with end-stage renal disease on dialysis. His last run was yesterday. He also has history of hypertension, NSTEMI, pulmonary embolism. Patient had a heart cath in August 2018 that showed distal left circumflex spasm. - Past Medical History (1) ESRD on hemodialysis Status: Chronic (2) Hypertension Status: Chronic (3) PAF (paroxysmal atrial fibrillation) Status: Chronic (4) Sleep apnea Status: Chronic Past Medical History - Allergies and Home Meds Allergies/Adverse Reactions: Allergies No Known Allergies Allergy (Verified 06/10/20 02:22) Prior records reviewed: Yes Surgical History: herniorrhaphy, - Lives: Spouse/ Significant Other Smoking Status: Never smoker - Family History Paternal Family History: Family History (Last Reviewed 11/16/19 @ 13:19 by Kailyn Bryant) Other Adopted Family History: Reports: - - Patient was adopted and does not know his maternal or paternal family history. Maternal Family History: Family History (Last Reviewed 11/16/19 @ 13:19 by Kailyn Bryant) Other Adopted Family History: Reports: - - Patient was adopted and does not know his maternal or paternal family history. Review of Systems General: Denies: Chills, Fever Eyes: Denies: Visual changes - bilaterally ENT: Denies: Bilateral ear pain Cardiovascular: Reports: Chest pain, Palpitations Respiratory: Denies: Dyspnea, Cough Gastrointestinal: Denies: Abdominal pain, Nausea, Vomiting, Diarrhea Genitourinary: Denies: Dysuria Musculoskeletal: Denies: Swelling, Extremity Pain Skin: Denies: Rash Neurological: Denies: Headache Hematologic: Denies: Easy bruising, Easy bleeding Allergy: Denies: Uticaria Physical Exam Vital Signs/Narrative: Vital Signs Temp Pulse Resp BP Pulse Ox 06/10/20 02:23 97.2 F L 137 H 22 H 72/51 L 100 Inital Vital Signs reviewed: Yes General: Well nourished, Well developed Head: Normocephalic ENT: Moist mucous membranes Neck: Supple Cardiovascular: Irregular, Tachycardia Respiratory: No distress, CTA bilaterally Abdomen: Soft, Nontender Extremities: Nontender Skin: Normal color Neurological: Alert, Oriented x3 Psychological: Normal affect Diagnostic/Tx/Re-eval Impressions Chest X-Ray 06/10/20 02:37 IMPRESSION: Bilateral pulmonary opacities suspicious for pneumonia, atypical viral pneumonia and/or hypoventilatory changes Significant stable S-shaped thoracolumbar spine scoliosis partially included on the [id number] which could be further evaluated with scoliosis series as an outpatient with clinical correlation and physical exam Electronically Signed: Harley Miranda, at 3:42 EDT Tel , Service support , Chest CTA 06/10/20 04:17 IMPRESSION: No demonstrated central pulmonary embolism or arterial dissection. Electronically Signed: Sam Overton, at 6:00 EDT Tel , Service support , 06/10/20 02:37 Chest 1 View (Portable) [RAD] Stat 06/10/20 04:17 CTA Chest W/WO Contrast [CT] Stat Laboratory Results 06/10/20 06/10/20 06/10/20 02:45 02:45 03:05 WBC 4.9 RBC 3.77 L Hgb 11.3 L Hct 36.8 L MCV 97.6 H MCH 30.0 MCHC 30.7 L RDW Std Deviation 59.7 H RDW Coeff of Lance 17.1 H Plt Count 192 MPV 11.8 Immature Gran % (Auto) 0.400 Neut % (Auto) 58.6 Lymph % (Auto) 17.1 L [place] % (Auto) 15.5 H Eos % (Auto) 7.6 H Baso % (Auto) 0.8 Absolute Neuts (auto) 2.9 Absolute Lymphs (auto) 0.84 Nucleated RBC % 0 D-Dimer Quant (PE/DVT) Cancelled Sodium Cancelled Potassium Cancelled Chloride Cancelled Carbon Dioxide Cancelled Anion Gap Cancelled BUN Cancelled Creatinine Cancelled Estim Creat Clear Calc Cancelled Est GFR (MDRD) Af Amer Cancelled Est GFR (MDRD) Non-Af Cancelled BUN/Creatinine Ratio Cancelled Glucose Cancelled Calcium Cancelled Troponin I Cancelled 06/10/20 06/10/20 03:27 03:27 WBC RBC Hgb Hct MCV MCH MCHC RDW Std Deviation RDW Coeff of Lance Plt Count MPV Immature Gran % (Auto) Neut % (Auto) Lymph % (Auto) [place] % (Auto) Eos % (Auto) Baso % (Auto) Absolute Neuts (auto) Absolute Lymphs (auto) Nucleated RBC % D-Dimer Quant (PE/DVT) 2.67 H* Sodium 138 Potassium 4.5 Chloride 94 L Carbon Dioxide 35.0 H Anion Gap 9 BUN 42 H Creatinine 9.64 H* Estim Creat Clear Calc 10.73 Est GFR (MDRD) Af Amer 8 L Est GFR (MDRD) Non-Af 7 L BUN/Creatinine Ratio 4.4 L Glucose 83 Calcium 8.1 L Troponin I 0.029 - EKG Initial EKG Interpretation: Atrial Fibrillation - A. fib at 122. No acute ischemia. - Medical Decision Making Patient was given 10 mg of IV Cardizem and a 250 cc fluid bolus. Heart rate improved into the 90s. D-dimer is elevated. CTA of the chest is obtained that reveals no evidence of PE. Patient does admit to being noncompliant with his Eliquis. Patient is discussed with hospitalist and admitted for further evaluation. ED Disposition - Plan for ED Patient: Disposition: Acute Care Hospital [facility] Diagnosis: Atrial fibrillation with RVR, Chest pain
[2020-06-10] MEDS: Aspirin 81 MG TAB.CHEW 324 MG PO (03:05)
[2020-06-10] MEDS: dilTIAZem 25 MG/5 ML Vial 10 MG IV BOLUS (03:06)
[2020-06-10 03:09] LABS: Absolute Lymphocyte Count 0.84 X10^3/uL (0.83-4.51); Absolute Neutrophil Count 2.9 X10^3/uL (2.0-7.7); Basophil# 0.04 X10^3/uL; Basophil% 0.8 % (0-1); Eosinophil# 0.37 X10^3/uL; Eosinophils% 7.6 % (0-5); Hematocrit 36.8 % (40-54); Hemoglobin 11.3 g/dL (13.0-16.5); Lymphocyte # 0.84 X10^3/ul (4.0); Lymphocyte % 17.1 % (19-41); Mean Corp Hgb Conc 30.7 g/dL (32-36); Mean Corpuscular Volume 97.6 fL (80-94); Mean Platelet Vol. 11.8 fl (6.2-12.0); Monocyte# 0.76 X10^3/uL; Monocyte% 15.5 % (0-10); NRBC Flagged by Analyzer 0 % (0-5); Neutrophil # 2.87 X10^3/uL (2.7-7.7); Neutrophil % 58.6 % (47-70); Platelet Count 192 K/mm3 (150-450); RBC Distribution Width CV 17.1 % (11.6-14.6); RBC Distribution Width SD 59.7 fl (35.1-43.9); Red Blood Count 3.77 M/mm3 (4.6-6.2); White Blood Count 4.9 K/mm3 (4.4-11.0)
[2020-06-10] MEDS: fentaNYL 100 MCG/2 ML Ampul 25 MCG IV (03:53)
[2020-06-10 03:58] LABS: D-Dimer Quantitative (DVT/PE) 2.67 FEU/ug/m (0.27-0.49)
--- NOTE | 2020-06-10 04:01 | ED.RN ---
d-dimer of 2.67 reported to . verbalizes understanding
[2020-06-10 04:12] LABS: Anion Gap 9 (5-15); BUN 42 mg/dL (7-18); BUN/Creat Ratio 4.4 RATIO (10-20); Calcium,Total 8.1 mg/dL (8.5-10.1); Chloride 94 mmol/L (98-107); Creatinine, Serum 9.64 mg/dL (0.70-1.30); EST Glomerular Filtration Rate 7 mL/min (>60); Est Glom Filt Rate - Afr Amer 8 mL/min (>60); Estimated Creatinine Clearance 10.73 ml/min; Glucose 83 mg/dL (74-106); Potassium 4.5 mmol/L (3.5-5.1); Sodium Level 138 mmol/L (136-145)
--- NOTE | 2020-06-10 04:13 | ED.RN ---
Dr Pink notified of creatinine 9.65
--- NOTE | 2020-06-10 04:17 | CT_ITS ---
STUDY: CTA CHEST REASON FOR EXAM: Male, 40 years old. CP, FATIGUE, CONCERN FOR PE, ELEVATED D-DIMER, PALPITATIONS, DIALYSIS TUES, THURS, SAT, A-FIB, PE, HTN, PT NOT TAKING HIS ELIQUIS PRESCRIBED RADIATION DOSAGE (If Supplied By Facility): CTDIvol = ( 72.15 ) mGy, DLP = ( 842.12 ) mGycm TECHNIQUE: The examination was performed with the intravenous administration of IV 100mL Isovue-370. Post-processing of the angiographic images was performed, with multiplanar reformation and 3D reconstruction. Individualized dose optimization techniques were used for this CT. COMPARISON: None. 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 Normal enhancement of the main pulmonary artery and right and left pulmonary arteries. There is limited enhancement of the bilateral peripheral pulmonary arteries. There is no demonstrated pulmonary embolism. Normal thoracic aorta and visualized great vessels. There is no demonstrated aortic dissection. Normal heart and pericardium. Normal mediastinum. Normal hilar regions. Normal visualized trachea and bronchi. Subsegmental atelectasis in the left lung base. Normal pulmonary parenchyma. Normal pleura. Normal chest wall structures. Normal osseous structures. Normal visualized upper abdomen. CT/CTA Chest W/WO Contrast IMPRESSION: No demonstrated central pulmonary embolism or arterial dissection. Electronically Signed: Sam Overton, at 6:00 EDT Tel , Service support ,
--- NOTE | 2020-06-10 05:00 | HP.PCM_ITS ---
Problem List (1) Chest pain Status: Acute Qualifiers: Chest pain type: unspecified Qualified Code(s): R07.9 - Chest pain, unspecified (2) Atrial fibrillation with RVR Status: Acute (3) ESRD on hemodialysis Status: Chronic (4) Anemia of chronic disorder Status: Chronic (5) Hypertension Status: Chronic Qualifiers: Hypertension type: essential hypertension Qualified Code(s): I10 - Essential (primary) hypertension (6) ESRD (end stage renal disease) Status: Chronic Comment: Due to hypertension, On hemodialysis, TTS, followed by Dr. Goncalves (7) Sleep apnea Status: Chronic Qualifiers: Sleep apnea type: unspecified type Qualified Code(s): G47.30 - Sleep apnea, unspecified History of Present Illness Date of Admission: 06/10/20 Chief Complaint: Chest pain, palpitations The patient is a 40 y/o M w/ PMHx: Morbid Obesity, AOCD, YEIMY, Hx VTE, ESRD on HD T//Fri, PAF on Eliquis who presents to the [facility] ED On 06/10/20 with history of onset of palpitations and irregular heart rate starting ~ 48 hours prior with patient suspicious of recurrent onset atrial fibrillation with then onset the evening prior to ED presentation, chest discomfort midsternal, non-radiating, described as a burning sensation, constant and ongoing, rated 6-7.5/10 in severity, noting noncompliance with Eliquis with history of prior pulmonary embolism prompting ED presentation. Patient states he has been taking his metoprolol regimen. Patient normally is in sinus rhythm. Work-up in the ED included T 97.2, heart rate 137, BP 72/51, respiratory rate 22, on a percent on room air, CBC with WBC 4.9, hemoglobin 11.3, platelet 192 without market shift, BMP with chloride 94, BUN/creatinine 42/9.64, troponin 0 0.029 chest x-ray with bilateral pulmonary opacities suspicious for pneumonia, atypical viral pneumonia and no hypoventilatory changes, d-dimer 2.67, CTPA pending upon evaluation of patient. In the ED patient administered 10 mg IV bolus of Cardizem as well as aspirin 324 mg p.o. x1, fentanyl 25 mcg IV x1 and normal saline. Following patient ministration of Cardizem heart rate improved to 90 although patient remained in atrial fibrillation and BP was transiently lower but following improvement in rate repeat BP 96/68 although patient described ongoing burning sensation in his chest. Past Medical History Past Medical History (Chronic Problems): Chronic Problems (Last Updated 04/06/20 @ 17:[address] Dorothea Martin MD) ESRD on hemodialysis (Chronic) PAF (paroxysmal atrial fibrillation) (Chronic) Dialysis patient (Chronic) Anemia of chronic disorder (Chronic) Hypertension (Chronic) ESRD (end stage renal disease) (Chronic) Due to hypertension, On hemodialysis, TTS, followed by Dr. Goncalves Morbidly obese (Chronic) Sleep apnea (Chronic) 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 due to renal insufficiency (Chronic) Hematuria (Chronic) Pelvic mass (Chronic) Chronic pelvic pain in male (Chronic) Chronic kidney disease-mineral and bone disorder (Chronic) Mitral valve stenosis (Chronic) Sleep apnea (Chronic) Hearing loss (Chronic) in both ears Medical History: Medical History (Last Updated 04/06/20 @ 17:[address] Dorothea Martin MD) Mitral valve stenosis (Chronic) I05.0 Sleep apnea (Chronic) G47.30 Hearing loss (Chronic) H91.90 in both ears Afib I48.91 ESRD (end stage renal disease) N18.6 Anemia of chronic disease D63.8 HTN (hypertension) I10 History of blood clots (Inactive) Z86.718 fistula developed a clot and had to be surgically removed Allergies No Known Allergies Allergy (Verified 06/10/20 02:22) Home Medications: Ambulatory Orders Medication Instructions Recorded cinacalcet 60 mg tablet 60 mg PO MOWEFR 10/10/17 Ferric Citrate [Auryxia] 630 mg PO TIDCM 02/05/19 Apixaban [Eliquis] 2.5 mg PO BID 04/05/20 metoprolol tartrate 25 mg tablet 25 mg PO BID #180 tab 05/01/20 Surgical History: Surgical History (Last Reviewed 11/16/19 @ 13:19 by Kailyn Bryant) history of cather replacement Left Groin 04/21/19 Surgical History: herniorrhaphy, - - Herniorrhaphy, aVF x2, catheter placements, right upper extremity aneurysm removal. Psychiatric History: No pertinent psych hx Lives: Spouse/ Significant Other Smoking Status: Never smoker Tobacco Use: Non-smoker Alcohol: None Drugs: None - *Family History Paternal Family History: Family History (Last Reviewed 11/16/19 @ 13:19 by Kailyn Bryant) Other Adopted History Items: - - Patient was adopted and does not know his maternal or paternal family history. Maternal Family History: Family History (Last Reviewed 11/16/19 @ 13:19 by Kailyn Bryant) Other Adopted History Items: - - Patient was adopted and does not know his maternal or paternal family history. Review of Systems Constitutional: Reports: Malaise, Weakness, Fatigue. Denies: Anorexia, Chills, Fever, Weight Change HEENT: Denies: Head Aches, Sinus Congestion, Sinus Drainage Cardiovascular: Reports: Chest Pain, Chest Pressure, Palpitations. Denies: Chest Tightness, Light Headedness, Orthopnea, Syncope Respiratory: Denies: Cough, Shortness of Breath, Shortness of breath at rest, Shortness of breath upon exertion, Sputum production Gastrointestinal: Denies: Abdominal Pain, Nausea, Vomiting Genitourinary: Denies: Dysuria Musculoskeletal: Reports: Back Pain, Joint Pain. Denies: Joint Tenderness Skin: Denies: Rash, Wounds Neurological: Denies: Numbness, Tingling, Focal weakness Psychiatric: Denies: Anxiety, Depression, Homicidal Ideations, Suicidal Ideations Hematologic/ Lymphatic: Reports: Anemia. Denies: Easy Bruising, Easy Bleeding VTE Information - Inpt Only VTE Present on Admission: No VTE Mechan Device Prophylaxis: SCD's VTE Pharm Prophylaxis ordered?: Yes Patient Problems: Active and Suspected Problems (Last Updated 04/06/20 @ 17:[address] Dorothea Martin MD) Chest pain (Acute) Atrial fibrillation with RVR (Acute) Subjective: Patient seated upright in the ED bed, mildly fatigued appearance, notes ongoing chest discomfort but does not appear uncomfortable. Objective: Physical Examination: General: awake, alert, oriented x 3 and cooperative, seated upright in the ED bed in no apparent distress despite noting ongoing chest pain. Skin: normal color, turgor, no icterus, cyanosis. HEENT: AT/NC, EOMI although does have right lazy eye, PERRLA, MMM, no carotid bruits or JVD noted. Lungs: CTA bilaterally, moderate effort, moderate decrease BL bases, no rales, ronchi or wheezing. Heart: Irregular, rate controlled currently; no gallop, rub audible. Abdomen: soft, morbidly obese, NTTP, ND, normal BS, unable to discern HSM secondary to morbidly obese habitus. Extremities: no cyanosis, clubbing, or edema. Neurological: patient awake, alert, oriented x 3; cognitive function intact; pupils equally reactive to light and accomodation; cranial nerves II-XII grossly normal, moving all 4 extremities, no focal deficits, strength mildly moderately globally Magdalene secondary to acute presentation complaints. Psychiatric: affect appears mildly fatigued otherwise normal, no acute evidence of depressive or anxiety feelings. - Physical Exam Vitals/I&O's: Vital Signs Temp Pulse Resp BP Pulse Ox 97.2 F L 90 18 96/68 100 06/10/20 02:23 06/10/20 04:06/10/20 04:06/10/20 04:06/10/20 04:09 Oxygen Flow Rate (L/min) 2 Oxygen Delivery Method Room Air Weight: 298 lb 4.567 oz Body Mass Index (BMI) 42.7 Intake and Output for Last 24 Hours 06/08/20 06/09/20 06/10/20 23:59 23:59 23:59 Intake Total 500 / 500 Balance 500 / 500 Laboratory Results 06/10/20 02:45: WBC 4.9, RBC 3.77 L, Hgb 11.3 L, Hct 36.8 L, MCV 97.6 H, MCH 30.0, MCHC 30.7 L, RDW Std Deviation 59.7 H, RDW Coeff of Lance 17.1 H, Plt Count 192, MPV 11.8, Immature Gran % (Auto) 0.400, Neut % (Auto) 58.6, Lymph % (Auto) 17.1 L, [place] % (Auto) 15.5 H, Eos % (Auto) 7.6 H, Baso % (Auto) 0.8, Absolute Neuts (auto) 2.9, Absolute Lymphs (auto) 0.84, Nucleated RBC % 0 06/10/20 02:45: Sodium Cancelled, Potassium Cancelled, Chloride Cancelled, Carbon Dioxide Cancelled, Anion Gap Cancelled, BUN Cancelled, Creatinine Cancelled, Estim Creat Clear Calc Cancelled, Est GFR (MDRD) Af Amer Cancelled, Est GFR (MDRD) Non-Af Cancelled, BUN/Creatinine Ratio Cancelled, Glucose Cancelled, Calcium Cancelled, Troponin I Cancelled 06/10/20 03:05: D-Dimer Quant (PE/DVT) Cancelled 06/10/20 03:27: Sodium 138, Potassium 4.5, Chloride 94 L, Carbon Dioxide 35.0 H, Anion Gap 9, BUN 42 H, Creatinine 9.64 H*, Estim Creat Clear Calc 10.73, Est GFR (MDRD) Af Amer 8 L, Est GFR (MDRD) Non-Af 7 L, BUN/Creatinine Ratio 4.4 L, Glucose 83, Calcium 8.1 L, Troponin I 0.029 06/10/20 03:27: D-Dimer Quant (PE/DVT) 2.67 H* Assessment/Plan All Active Problems (Last Updated 04/06/20 @ 17:[address] Dorothea Martin MD) Chest pain (Acute) Atrial fibrillation with RVR (Acute) COVID-19 (Acute) Expressive aphasia (Acute) The patient is a 40 y/o M w/ PMHx: Morbid Obesity, AOCD, YEIMY, Hx VTE, ESRD on HD //Sat, PAF on Eliquis who presents to the [facility] ED On 06/10/20 with history of onset of palpitations and irregular heart rate starting ~ 48 hours prior with patient suspicious of recurrent onset atrial fibrillation with then onset the evening prior to ED presentation, chest discomfort midsternal, non-radiating, described as a burning sensation, constant and ongoing. 1. Chest pain secondary to Paroxsymal atrial fibrillation with RVR, possible recurrent pulmonary embolism: EKG in ED w/ atrial fibrillation w/ RVR. Patient administered Cardizem 10 mg IV bolus x1 in ED. Will admit to PCU, pending CTPA upon evaluation of patient, will initiate and maintain on heparin drip pending CTPA results, maintain on telemetry, obtain cardiac enzyme serial set, obtain magnesium level, 11/09/2019 echocardiogram with normal LV size, moderate concentric LVH, normal LV systolic function, EF 70%, transmitral valve gradient 50 mmHg, obtain TSH level. Will transition back to home Eliquis if cardiac enzyme trending is appropriate and no intervention needs although patient has been very clearly noncompliant. Will dose with his home metoprolol however patient previously required flecainide in the past. 2. ESRD: On HD , , Sat, following w/ Dr. Melendez, compliant recenty with HD, will continue Nephrology consultation. 3. AOCD, Fe Deficiency anemia: Admission Hgb 11.3, similar to prior, continue to trend. 4. Morbid Obesity: Weight loss and lifestyle changes encouraged, nutrition consulted. 5. Valvular heart disease: Noted prior valvular heart disease however most recent echocardiogram 11/09/2019 with normal LV size, moderate concentric LVH, EF 70%, mean transmitral valve gradient 15 mmHg. 6. History of DVT, history of pulmonary embolism: Transitioning from Eliquis to heparin drip pending further cardiac evaluation in case of intervention needs. 7. YEIMY: CPAP q HS. 8. DVT prophylaxis: SCDs, transition from eliquis to heparin drip pending further cardiac evaluation in case of intervention needs. OBSV E&M: [id number] Initial observation care L3
--- NOTE | 2020-06-10 06:37 | EKG12_ITS ---
Test Reason : AFIB/FLUTTER Blood Pressure : / mmHG Vent. Rate : 098 BPM Atrial Rate : 098 BPM P-R Int : 180 ms QRS Dur : 072 ms QT Int : 358 ms P-R-T Axes : 071 138 048 degrees QTc Int : 457 ms Normal sinus rhythm Anteroseptal infarct , age undetermined Abnormal ECG When compared with ECG of 10-JUN-2020 18:35, MANUAL COMPARISON REQUIRED, DATA IS UNCONFIRMED Confirmed by SALMA STAHL, JACOBY ([id number]), editor map MARGARITO CHANDLER ([id number]) on 06/14/2020 11:40:27 AM Referred By: JOHN Confirmed By:JACOBY MARSH MD
[2020-06-10 06:51] LABS: International Normalized Ratio 1.2; Prothrombin Time (Protime)PT. 14.7 SECONDS (11.7-14.9)
[2020-06-10 06:52] LABS: Partial Thromboplast Time 30.1 Seconds (24.1-36.2)
[2020-06-10 08:10] LABS: T4 Free Direct 1.25 ng/dL (0.76-1.46); Thyroid Stim Hormone (TSH) 2.67 uIU/mL (0.358-3.74)
--- NOTE | 2020-06-10 12:04 | CON.PCM_ITS ---
Problem List (1) Atrial fibrillation with RVR Status: Acute (2) Expressive aphasia Status: Acute Reason for Consult Date of Consultation: 06/10/20 Reason for Consultation: Recurrence of atrial fibrillation and fast ventricular rate as well as elevated troponin History of Present Illness: The patient is a 40 year old M was admitted last night because of palpitations of the heart with some substernal burning sensation. He was slightly short of breath. In the emergency room he was found to have recurrence of atrial fibrillation and fast ventricular rate. EKG did not show any ischemic changes apart from the fast ventricular rate. He is a poor historian he could not remember distant event too much. After admission, troponin was elevated and trending up. Today the substernal burning sensation has disappeared. He is still having some substernal heaviness and very tolerable. He has been on hemodialysis for 14 years. 2 years ago, for different kinds of chest pain and elevated troponin, he had cardiac catheterization which showed insignificant coronary artery disease August 2018. He is known to have hypertension and denies any history of type 2 diabetes. He is a non-smoker, nondrinker and with no history of recreational drug use. He had 2 cardioversion in the past. He has stopped taking the Eliquis for about 10 days. He denies ever having any history of myocardial infarct or CVA. September 2018, patient had transesophageal echocardiography and showed a mean gradient of 13 mm. Stoddard's score was 6. Pulmonary systolic pressure was under 30. He was considered to be in the range of moderate to severe mitral stenosis. YONATHAN is suggestive not a suitable candidate for balloon valvuloplasty. Troponin was even higher in 2019 than the present time. [] Past Medical History Allergies/Adverse Reactions: Allergies No Known Allergies Allergy (Verified 06/10/20 02:22) Home Medications: Ambulatory Orders Medication Instructions Recorded Ferric Citrate [Auryxia] 630 mg PO TIDCM 02/05/19 Apixaban [Eliquis] 2.5 mg PO BID 04/05/20 metoprolol tartrate 25 mg tablet 25 mg PO BID #180 tab 05/01/20 Past Medical History (Chronic Problems): Chronic Problems (Last Updated 04/06/20 @ 17:[address] Dorothea Martin MD) ESRD on hemodialysis (Chronic) PAF (paroxysmal atrial fibrillation) (Chronic) Dialysis patient (Chronic) Anemia of chronic disorder (Chronic) Hypertension (Chronic) ESRD (end stage renal disease) (Chronic) Due to hypertension, On hemodialysis, TTS, followed by Dr. Goncalves Morbidly obese (Chronic) Sleep apnea (Chronic) 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 due to renal insufficiency (Chronic) Hematuria (Chronic) Pelvic mass (Chronic) Chronic pelvic pain in male (Chronic) Chronic kidney disease-mineral and bone disorder (Chronic) Mitral valve stenosis (Chronic) Sleep apnea (Chronic) Hearing loss (Chronic) in both ears Surgical History: herniorrhaphy, - - Herniorrhaphy, aVF x2, catheter placements, right upper extremity aneurysm removal. Psychiatric History: No pertinent psych hx - *Family History Paternal Family History: Family History (Last Reviewed 11/16/19 @ 13:19 by Kailyn Bryant) Other Adopted History Items: - - Patient was adopted and does not know his maternal or paternal family history. Maternal Family History: Family History (Last Reviewed 11/16/19 @ 13:19 by Kailyn Bryant) Other Adopted History Items: - - Patient was adopted and does not know his maternal or paternal family history. Lives: Spouse/ Significant Other Smoking Status: Never smoker Tobacco Use: Non-smoker Alcohol: None Drugs: None Review of Systems - Review of Systems General: Reports: Fatigue Cardiovascular: Reports: Chest Discomfort, Shortness of Breath with Exertion, Palpitations Respiratory: Denies: Cough, Sputum Production, Hemoptysis Gastrointestinal: Denies: Hematemesis, Hematochezia, Melena Neurological: Denies: Dizziness, Weakness Objective: Vital Signs Temp Pulse Resp BP Pulse Ox 97.0 F L 109 H 18 80/43 L 96 06/10/20 09:55 06/10/20 11:48 06/10/20 09:55 06/10/20 09:55 06/10/20 09:55 Oxygen Flow Rate (L/min) 2 Oxygen Delivery Method Room Air Weight: 293 lb 6.964 oz Body Mass Index (BMI) 42.0 Intake and Output for Last 24 Hours 06/08/20 06/09/20 06/10/20 23:59 23:59 23:59 Intake Total 500 / 500 Balance 500 / 500 General: Healthy Appearing, Awake, Alert, No Acute Distress, - - Poor historian HEENT: Atraumatic Neck: Supple Lungs: Clear to auscultation Cardiovascular: Irregular Rhythm, No Murmurs Abdomen: Bowel Sounds Present, Soft, Non Tender, No HSM, No Organomegaly Extremities: Bilateral Edema +1 06/10/20 02:45: WBC 4.9, RBC 3.77 L, Hgb 11.3 L, Hct 36.8 L, MCV 97.6 H, MCH 30.0, MCHC 30.7 L, Plt Count 192, MPV 11.8, Immature Gran % (Auto) 0.400, Neut % (Auto) 58.6, Lymph % (Auto) 17.1 L, [place] % (Auto) 15.5 H, Eos % (Auto) 7.6 H, Baso % (Auto) 0.8, Absolute Neuts (auto) 2.9, Nucleated RBC % 0 06/10/20 02:45: Sodium Cancelled, Potassium Cancelled, Chloride Cancelled, Carbon Dioxide Cancelled, Anion Gap Cancelled, BUN Cancelled, Creatinine Cancelled, Est GFR (MDRD) Af Amer Cancelled, Est GFR (MDRD) Non-Af Cancelled, BUN/Creatinine Ratio Cancelled, Glucose Cancelled, Calcium Cancelled, Troponin I Cancelled 06/10/20 03:05: D-Dimer Quant (PE/DVT) Cancelled 06/10/20 03:27: Sodium 138, Potassium 4.5, Chloride 94 L, Carbon Dioxide 35.0 H, Anion Gap 9, BUN 42 H, Creatinine 9.64 H*, Est GFR (MDRD) Af Amer 8 L, Est GFR (MDRD) Non-Af 7 L, BUN/Creatinine Ratio 4.4 L, Glucose 83, Calcium 8.1 L, Troponin I 0.029 06/10/20 03:27: D-Dimer Quant (PE/DVT) 2.67 H* 06/10/20 03:27: PT 14.7, INR 1.2, APTT 30.1 06/10/20 06:54: Troponin I 0.170 H 06/10/20 09:30: Troponin I 0.610 H* Rhythm: EKG: ECHO: Stress Test: Cardiac Cath: PCI: CT Surgery: Holter monitor: EPS: PPM: CXR: Chest CT Scan: Assessment/Plan Patient has had mild symptomatic recurrence of atrial fibrillation and fast ventricular rate. From YONATHAN 2018 patient is deemed to have moderate to severe mitral stenosis with Evans score of 6. Mean gradient was 13 and normal pulmonary systolic blood pressure. It was deemed not to be a balloon valvuloplasty candidate. He had cardiac catheterization August 2018 and showed insignificant coronary artery disease. Prior to that, patient normal nuclear stress test. He has not been taking his Eliquis for 10 days. This morning his ventricular rate is around 100. Blood pressure on the low side of normal. I would give IV digoxin loading. The loading dose for renal dialysis patient is the same. Patient may end up with YONATHAN/cardioversion. Echocardiogram should be repeated
--- NOTE | 2020-06-10 12:52 | PN_ITS ---
<Lela Tsang AEROSOL LINE OPERATOR - Last Filed: 06/10/20 13:12> Patient Problems: Active and Suspected Problems (Last Updated 04/06/20 @ 17:[address] Dorothea poole MD) Chest pain (Acute) Atrial fibrillation with RVR (Acute) Subjective: Patient seen and examined. Denies chest pain, shortness of breath. Wearing BiPAP. Denies current complaints. - Physical Exam Vitals/I&O's: Vital Signs Temp Pulse Resp BP Pulse Ox 97.0 F L 109 H 18 80/43 L 96 06/10/20 09:55 06/10/20 11:48 06/10/20 09:55 06/10/20 09:55 06/10/20 09:55 Oxygen Flow Rate (L/min) 2 Oxygen Delivery Method Room Air Weight: 293 lb 6.964 oz Body Mass Index (BMI) 42.0 Intake and Output for Last 24 Hours 06/08/20 06/09/20 06/10/20 23:59 23:59 23:59 Intake Total 500 / 500 Balance 500 / 500 General: Alert, Oriented x3, Cooperative HEENT: Atraumatic, PERRLA, EOMI, Normocephalic Neck: Supple, No JVD, Negative Carotid Bruits Lungs: Clear to auscultation, Diminished Cardiovascular: - - Atrial fibrillation, tachycardic Abdomen: Bowel Sounds Present, Soft, Non Tender, Non-Distended, Obese Extremities: No clubbing, No cyanosis, No edema, Capillary Refill Less than 3 Seconds Skin: No rashes, No breakdown Musculoskeletal: No Tenderness to Palpation of Joints or Extremities Neurological: Cranial nerves II-XII grossly intact, Neuro grossly intact Psych/Mental Status: Normal Affect, Appropriate Laboratory Results 06/10/20 02:45: WBC 4.9, RBC 3.77 L, Hgb 11.3 L, Hct 36.8 L, MCV 97.6 H, MCH 30.0, MCHC 30.7 L, RDW Std Deviation 59.7 H, RDW Coeff of Lance 17.1 H, Plt Count 192, MPV 11.8, Immature Gran % (Auto) 0.400, Neut % (Auto) 58.6, Lymph % (Auto) 17.1 L, [place] % (Auto) 15.5 H, Eos % (Auto) 7.6 H, Baso % (Auto) 0.8, Absolute Neuts (auto) 2.9, Absolute Lymphs (auto) 0.84, Nucleated RBC % 0 06/10/20 02:45: Sodium Cancelled, Potassium Cancelled, Chloride Cancelled, Carbon Dioxide Cancelled, Anion Gap Cancelled, BUN Cancelled, Creatinine Cancelled, Estim Creat Clear Calc Cancelled, Est GFR (MDRD) Af Amer Cancelled, Est GFR (MDRD) Non-Af Cancelled, BUN/Creatinine Ratio Cancelled, Glucose Cancelled, Calcium Cancelled, Troponin I Cancelled 06/10/20 03:05: D-Dimer Quant (PE/DVT) Cancelled 06/10/20 03:27: Sodium 138, Potassium 4.5, Chloride 94 L, Carbon Dioxide 35.0 H, Anion Gap 9, BUN 42 H, Creatinine 9.64 H*, Estim Creat Clear Calc 10.73, Est GFR (MDRD) Af Amer 8 L, Est GFR (MDRD) Non-Af 7 L, BUN/Creatinine Ratio 4.4 L, Glucose 83, Calcium 8.1 L, Troponin I 0.029 06/10/20 03:27: D-Dimer Quant (PE/DVT) 2.67 H* 06/10/20 03:27: PT 14.7, INR 1.2, APTT 30.1 06/10/20 06:54: Troponin I 0.170 H, TSH 2.67, Free T4 1.25 06/10/20 09:30: Troponin I 0.610 H* Current Medications Acetaminophen (Tylenol) 650 mg PO Q6H PRN PRN PRN Reason: Pain Score 1-10/Temp > 100.7 F Al Hydroxide/Mg Hydroxide (Mylanta Ii) 30 ml PO Q6H PRN PRN PRN Reason: Gastric Burning Albuterol Sulfate (Ventolin Aerosols) 2.5 mg INHALATION Q2H PRN PRN PRN Reason: Dyspnea, wheezing Apixaban (Eliquis) 2.5 mg PO BID [facility] Aspirin (Ecotrin) 81 mg PO DAILY@0800 [facility] Cinacalcet (Sensipar) 60 mg PO MOWEFR [facility] Guaifenesin (Robitussin) 20 ml PO Q4H PRN PRN PRN Reason: COUGH Hydralazine HCl (Apresoline Iv) 10 mg IV Q4H PRN PRN PRN Reason: SBP > 160 Magnesium Hydroxide (Milk Of Magnesia) 30 ml PO DAILY PRN PRN PRN Reason: Constipation Metoprolol Tartrate (Lopressor (Beta Yossi)) 25 mg PO BID [facility] Morphine Sulfate () 2 mg IV Q3H PRN PRN PRN Reason: Pain Score 6-10/10 Nitroglycerin (Nitrostat) 0.4 mg SUBLINGUAL Q5M PRN PRN Reason: CARDIAC/CHEST PAIN Non-Formulary Medication (Ferric Citrate) 630 mg PO TIDCM [facility] Ondansetron HCl (Zofran) 4 mg IV Q8H PRN PRN PRN Reason: NAUSEA/VOMITING Oxycodone HCl (Oxyir) 5 mg PO Q4H PRN PRN PRN Reason: Pain Score 4-5/10 Prochlorperazine Edisylate (Compazine Iv) 5 mg IV Q4H PRN PRN PRN Reason: Breakthrough Nausea/Vomiting Psyllium Hydrophilic Mucilloid (Metamucil) 1 packet PO DAILY PRN PRN PRN Reason: Constipation Senna/Docusate Sodium (Senokot-S, Skye-Colace) 2 tablet PO BID PRN PRN PRN Reason: Constipation Sodium Chloride () 10 - 40 ml IV UD PRN PRN Reason: SALINE FLUSH Throat Lozenges (Cepacol Sore Throat Lozenge) 1 lozenge MUCOUS MEM Q2H PRN PRN PRN Reason: SORE THROAT Medical Necessity - Tobacco Use Smoking Status: Never smoker Tobacco Use: Non-smoker Assessment/Plan All Active Problems (Last Updated 04/06/20 @ 17:[address] Dorothea Martin MD) Chest pain (Acute) Atrial fibrillation with RVR (Acute) COVID-19 (Acute) Expressive aphasia (Acute) 1. Paroxysmal atrial fibrillation with RVR-IV digoxin added per cardiology. Echocardiogram October 2019 demonstrated an EF of 70%, moderate mitral valve calcification. Plan for repeat echo. Continue metoprolol, Eliquis. 2. Chest pain with abnormal troponin-cardiology following. Cardiac cath August 2018 showed normal coronary arteries. Suspect demand ischemia related to #1. 3. End-stage renal disease on hemodialysis-nephrology consulted. Continue dialysis regimen. 4. Anemia of chronic disease-stable, trend CBC. 5. Morbid obesity-encouraged diet and lifestyle modifications. 6. Valvular heart disease-Per echo as noted above. 7. History of DVT/PE- CTA negative for PE. Initiated on Eliquis as noted above. 8. YEIMY-continue home Pap regimen. DVT prophylaxis-Eliquis This patient was seen by YVONNE Randolph under the supervision of Dr. Beavers. <Gilson Beavers - Last Filed: 06/10/20 13:33> Subjective: Seen and examined. Patient denies chest pain or shortness of breath, near syncope. Earlier was admitted for palpitation and found to be A. fib with RVR. Patient not compliant with medications. Patient is also on hemodialysis Friday and Friday. Follows [facility]. Multiple comorbidities including obstructive sleep apnea, hypertension, valvular heart disease moderate to severe mitral stenosis. Mean valve gradient 13 mmHg. RVSP 30 mmHg YONATHAN suggestive not suitable candidate for balloon valvuloplasty. Objective: Physical exam General: Alert, Oriented x3, Cooperative HEENT: Atraumatic, PERRLA, EOMI, Normocephalic Oral: No Gingival or Mucosal Lesions/ Ulcerations Neck: Supple, No JVD, Negative Carotid Bruits Lungs: Air entry diminished in bilateral lung bases. No crepitation/rhonchi Cardiovascular: Irregular heart rate, tachycardia heart rate between 100- 110/min. Normal S1, Normal S2, no murmur auscultated. Abdomen: Bowel Sounds Present, Soft, Non Tender, Non-Distended : No renal angle tenderness. No suprapubic tenderness. Extremities: No edema, Capillary Refill Less than 3 Seconds Skin: No rashes, No breakdown Musculoskeletal: No Tenderness to Palpation of Joints or Extremities Neurological: Cranial nerves II-XII grossly intact, Deep Tendon Reflexes 2+/4 and Symmetrical, Neuro grossly intact Psych/Mental Status: Normal Affect, Appropriate. - Physical Exam Vitals/I&O's: Vital Signs Temp Pulse Resp BP Pulse Ox 97.0 F L 109 H 18 80/43 L 96 06/10/20 09:55 06/10/20 11:48 06/10/20 09:55 06/10/20 09:55 06/10/20 09:55 Oxygen Flow Rate (L/min) 2 Oxygen Delivery Method Room Air Weight: 293 lb 6.964 oz Body Mass Index (BMI) 42.0 Intake and Output for Last 24 Hours 06/08/20 06/09/20 06/10/20 23:59 23:59 23:59 Intake Total 500 / 500 Balance 500 / 500 Laboratory Results 06/10/20 02:45: WBC 4.9, RBC 3.77 L, Hgb 11.3 L, Hct 36.8 L, MCV 97.6 H, MCH 30.0, MCHC 30.7 L, RDW Std Deviation 59.7 H, RDW Coeff of Lance 17.1 H, Plt Count 192, MPV 11.8, Immature Gran % (Auto) 0.400, Neut % (Auto) 58.6, Lymph % (Auto) 17.1 L, [place] % (Auto) 15.5 H, Eos % (Auto) 7.6 H, Baso % (Auto) 0.8, Absolute Neuts (auto) 2.9, Absolute Lymphs (auto) 0.84, Nucleated RBC % 0 06/10/20 02:45: Sodium Cancelled, Potassium Cancelled, Chloride Cancelled, Carbon Dioxide Cancelled, Anion Gap Cancelled, BUN Cancelled, Creatinine Cancelled, Estim Creat Clear Calc Cancelled, Est GFR (MDRD) Af Amer Cancelled, Est GFR (MDRD) Non-Af Cancelled, BUN/Creatinine Ratio Cancelled, Glucose Cancelled, Calcium Cancelled, Troponin I Cancelled 06/10/20 03:05: D-Dimer Quant (PE/DVT) Cancelled 06/10/20 03:27: Sodium 138, Potassium 4.5, Chloride 94 L, Carbon Dioxide 35.0 H, Anion Gap 9, BUN 42 H, Creatinine 9.64 H*, Estim Creat Clear Calc 10.73, Est GFR (MDRD) Af Amer 8 L, Est GFR (MDRD) Non-Af 7 L, BUN/Creatinine Ratio 4.4 L, Glucose 83, Calcium 8.1 L, Troponin I 0.029 06/10/20 03:27: D-Dimer Quant (PE/DVT) 2.67 H* 06/10/20 03:27: PT 14.7, INR 1.2, APTT 30.1 06/10/20 06:54: Troponin I 0.170 H, TSH 2.67, Free T4 1.25 06/10/20 09:30: Troponin I 0.610 H* Current Medications Acetaminophen (Tylenol) 650 mg PO Q6H PRN PRN PRN Reason: Pain Score 1-10/Temp > 100.7 F Al Hydroxide/Mg Hydroxide (Mylanta Ii) 30 ml PO Q6H PRN PRN PRN Reason: Gastric Burning Albuterol Sulfate (Ventolin Aerosols) 2.5 mg INHALATION Q2H PRN PRN PRN Reason: Dyspnea, wheezing Apixaban (Eliquis) 2.5 mg PO BID [facility] Aspirin (Ecotrin) 81 mg PO DAILY@0800 [facility] Cinacalcet (Sensipar) 60 mg PO MOWEFR [facility] Guaifenesin (Robitussin) 20 ml PO Q4H PRN PRN PRN Reason: COUGH Hydralazine HCl (Apresoline Iv) 10 mg IV Q4H PRN PRN PRN Reason: SBP > 160 Magnesium Hydroxide (Milk Of Magnesia) 30 ml PO DAILY PRN PRN PRN Reason: Constipation Metoprolol Tartrate (Lopressor (Beta Yossi)) 25 mg PO BID [facility] Morphine Sulfate () 2 mg IV Q3H PRN PRN PRN Reason: Pain Score 6-10/10 Nitroglycerin (Nitrostat) 0.4 mg SUBLINGUAL Q5M PRN PRN Reason: CARDIAC/CHEST PAIN Non-Formulary Medication (Ferric Citrate) 630 mg PO TIDCM [facility] Ondansetron HCl (Zofran) 4 mg IV Q8H PRN PRN PRN Reason: NAUSEA/VOMITING Oxycodone HCl (Oxyir) 5 mg PO Q4H PRN PRN PRN Reason: Pain Score 4-5/10 Prochlorperazine Edisylate (Compazine Iv) 5 mg IV Q4H PRN PRN PRN Reason: Breakthrough Nausea/Vomiting Psyllium Hydrophilic Mucilloid (Metamucil) 1 packet PO DAILY PRN PRN PRN Reason: Constipation Senna/Docusate Sodium (Senokot-S, Skye-Colace) 2 tablet PO BID PRN PRN PRN Reason: Constipation Sodium Chloride () 10 - 40 ml IV UD PRN PRN Reason: SALINE FLUSH Throat Lozenges (Cepacol Sore Throat Lozenge) 1 lozenge MUCOUS MEM Q2H PRN PRN PRN Reason: SORE THROAT Assessment/Plan This patient was seen in conjunction with Lela GIORDANO. I have independently interviewed and examined the patient and reviewed pertinent history, examination findings, laboratory and plan of management. I have reviewed the note and agree with the documented findings with the few additional points. In brief, patient is 40-year-old Afro-[place] gentleman with multiple comorbidities including ESRD on hemodialysis, paroxysmal A. fib, morbid obesity history of DVT/PE came to ED with palpitation and found to be A. fib with RVR. With high d-dimer, there was also suspicion of PE but no central or major pulmonary arterial embolism found on CTPA. IV heparin drip was stopped and patient put back on Eliquis. Patient is on metoprolol. Troponins, elevated especially the third one 0.61. Blowing Engineer was consulted. Patient does not have chest pain seems mainly demand ischemia from A. fib with RVR with moderate to severe mitral stenosis. Blowing Engineer ordered digoxin 500 mcg IV 1 dose. His cardiac cath in August 2018 shows normal coronary arteries and prior to stress test was also normal. YONATHAN on September 2018 shows severely calcified, severely thickened annulus. Findings consistent with moderate to severe stenosis, mean gradient 12 mm. Evans score 6. RVSP 25 Hg. As per morphology of the moderate to severe MS, patient is not candidate for valvuloplasty. He advised repeat echo which is ordered. I have discussed my assessment with Lela GIORDANO and orders have been reviewed. Inpatient E&M: [id number] Subs Hosp L2
--- NOTE | 2020-06-10 13:15 | NURSING ---
RN in to give patient his medications. Patient refusing at this time. Wants to wait until dialysis is finished. Discussed concern for increased heart rate. Patient voices understanding of concern. Still wants to wait until dialysis is done.
--- NOTE | 2020-06-10 14:57 | DIALYSIS ---
IUF X 1 HOUR THEN HD X 3 ON 2K [id number] TOLERATED WELL C/O SOME LEGCRAMPS RELIEVED WITH NS FLUSH. STASIS AT RIGHT LEG GRAFT DSG AT SITES. VITALS STABLE POST TX REPORT TO BHAKTI RAMOS
[2020-06-10] MEDS: Acetaminophen 325 MG Tablet 650 MG PO (15:49)
[2020-06-10] MEDS: Digoxin 250 MCG/ML Ampul 500 MCG IV (15:50)
[2020-06-10] MEDS: 0.9% Saline Lock 10 ML Syringe IV ×3 (15:52→23:32)
[2020-06-10] MEDS: Aspirin E.C. 81 MG Tablet PO (15:52)
--- NOTE | 2020-06-10 17:03 | NURSING ---
Patient refusing to take Metoprolol. Is okay with receiving IV fluids.
--- NOTE | 2020-06-10 18:25 | EKG12_ITS ---
Test Reason : CONVERSION TO NS Blood Pressure : / mmHG Vent. Rate : 100 BPM Atrial Rate : 100 BPM P-R Int : 166 ms QRS Dur : 070 ms QT Int : 354 ms P-R-T Axes : 071 151 052 degrees QTc Int : 456 ms Normal sinus rhythm Anteroseptal infarct , age undetermined Abnormal ECG When compared with ECG of 10-JUN-2020 07:24, MANUAL COMPARISON REQUIRED, DATA IS UNCONFIRMED Confirmed by SALMA STAHL, JACOBY ([id number]), international editorial producer MARGARITO CHANDLER ([id number]) on 06/14/2020 11:41:33 AM Referred By: PATY Confirmed By:JACOBY MARSH MD
--- NOTE | 2020-06-10 20:19 | PCM.CONS.R ---
Problem List (1) ESRD on hemodialysis Status: Chronic Consultation - Renal 06/10/20 PCP/ Referring MD: Requesting physician: [] Primary care physician: Dr. Pawel Banda MD Reason for Consultation:: ESRD - History of Present Illness History of Present Illness: The patient is a 40 year old M well known to us. ESRD on HD MWF schedule. recently had fluid overload due to low BP. admitted with AFIB RVR. HD this am - Allergies Allergies: Allergies No Known Allergies Allergy (Verified 06/10/20 02:22) - Current Medications Current Medications: Current Medications Acetaminophen (Tylenol) 650 mg PO Q6H PRN PRN PRN Reason: Pain Score 1-10/Temp > 100.7 F Last Admin: 06/10/20 15:49 Dose: 650 mg Documented by: Al Hydroxide/Mg Hydroxide (Mylanta Ii) 30 ml PO Q6H PRN PRN PRN Reason: Gastric Burning Albuterol Sulfate (Ventolin Aerosols) 2.5 mg INHALATION Q2H PRN PRN PRN Reason: Dyspnea, wheezing Apixaban (Eliquis) 2.5 mg PO BID [facility] Last Admin: 06/10/20 15:44 Dose: Not Given Documented by: Aspirin (Ecotrin) 81 mg PO DAILY@0800 [facility] Last Admin: 06/10/20 15:52 Dose: 81 mg Documented by: Cinacalcet (Sensipar) 60 mg PO MOWEFR [facility] Guaifenesin (Robitussin) 20 ml PO Q4H PRN PRN PRN Reason: COUGH Hydralazine HCl (Apresoline Iv) 10 mg IV Q4H PRN PRN PRN Reason: SBP > 160 Magnesium Hydroxide (Milk Of Magnesia) 30 ml PO DAILY PRN PRN PRN Reason: Constipation Metoprolol Tartrate (Lopressor (Beta Yossi)) 25 mg PO BID [facility] Last Admin: 06/10/20 15:44 Dose: Not Given Documented by: Morphine Sulfate () 2 mg IV Q3H PRN PRN PRN Reason: Pain Score 6-10/10 Nitroglycerin (Nitrostat) 0.4 mg SUBLINGUAL Q5M PRN PRN Reason: CARDIAC/CHEST PAIN Non-Formulary Medication (Ferric Citrate) 630 mg PO TIDCM [facility] Ondansetron HCl (Zofran) 4 mg IV Q8H PRN PRN PRN Reason: NAUSEA/VOMITING Oxycodone HCl (Oxyir) 5 mg PO Q4H PRN PRN PRN Reason: Pain Score 4-5/10 Prochlorperazine Edisylate (Compazine Iv) 5 mg IV Q4H PRN PRN PRN Reason: Breakthrough Nausea/Vomiting Psyllium Hydrophilic Mucilloid (Metamucil) 1 packet PO DAILY PRN PRN PRN Reason: Constipation Senna/Docusate Sodium (Senokot-S, Skye-Colace) 2 tablet PO BID PRN PRN PRN Reason: Constipation Sodium Chloride () 10 - 40 ml IV UD PRN PRN Reason: SALINE FLUSH Last Admin: 06/10/20 17:10 Dose: 10 ml Documented by: Throat Lozenges (Cepacol Sore Throat Lozenge) 1 lozenge MUCOUS MEM Q2H PRN PRN PRN Reason: SORE THROAT - Past Medical History Past Medical History (Chronic Problems): Chronic Problems (Last Updated 04/06/20 @ 17:[address] Dorothea Martin MD) ESRD on hemodialysis (Chronic) PAF (paroxysmal atrial fibrillation) (Chronic) Dialysis patient (Chronic) Anemia of chronic disorder (Chronic) Hypertension (Chronic) ESRD (end stage renal disease) (Chronic) Due to hypertension, On hemodialysis, TTS, followed by Dr. 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 - Social History Smoking Status: Never smoker Alcohol: None Drugs: None - Family History Paternal Family History: Family History (Last Reviewed 11/16/19 @ 13:19 by Kailyn Bryant) Other Adopted History Items: - - Patient was adopted and does not know his maternal or paternal family history. Maternal Family History: Family History (Last Reviewed 11/16/19 @ 13:19 by Kailyn Bryant) Other Adopted History Items: - - Patient was adopted and does not know his maternal or paternal family history. Review of Systems Constitutional: Denies: Chills, Fever, Weight Change HEENT: Denies: Head Aches, Sinus Congestion, Sinus Drainage Cardiovascular: Denies: Chest Pain, Palpitations Respiratory: Denies: Cough, Shortness of breath at rest, Sputum production Gastrointestinal: Denies: Abdominal Pain, Nausea, Vomiting Genitourinary: Denies: Dysuria Musculoskeletal: Denies: Joint Pain, Joint Tenderness Skin: Denies: Rash, Wounds Neurological: Denies: Numbness, Tingling, Focal weakness Psychiatric: Denies: Anxiety, Depression, Homicidal Ideations, Suicidal Ideations Hematologic/ Lymphatic: Denies: Easy Bruising, Easy Bleeding Patient Problems: Active and Suspected Problems (Last Updated 04/06/20 @ 17:[address] Dorothea Martin MD) Chest pain (Acute) Atrial fibrillation with RVR (Acute) - Physical Exam Vitals/I&O's: Vital Signs Temp Pulse Resp BP Pulse Ox 98.3 F 102 H 17 90/47 L 98 06/10/20 18:20 06/10/20 18:59 06/10/20 18:20 06/10/20 18:20 06/10/20 18:35 Oxygen Flow Rate (L/min) 2 Oxygen Delivery Method Room Air Weight: 133.1 kg Body Mass Index (BMI) 42.0 Intake and Output for Last 24 Hours 06/08/20 06/09/20 06/10/20 23:59 23:59 23:59 Intake Total 1490 / 1490 Output Total 3550 / 3550 Balance -2059 / -2059 General: Alert, Oriented x3, Cooperative HEENT: Atraumatic, PERRLA, EOMI, Normocephalic Neck: Supple, No JVD, Negative Carotid Bruits Lungs: Clear to auscultation, Normal air movement Cardiovascular: Regular rate, No murmurs Abdomen: Bowel Sounds Present, Soft, Non Tender Extremities: No edema, Capillary Refill Less than 3 Seconds Skin: No rashes, No breakdown Musculoskeletal: No Tenderness to Palpation of Joints or Extremities Neurological: Cranial nerves II-XII grossly intact Psych/Mental Status: Normal Affect, Appropriate Laboratory Results 06/10/20 02:45: WBC 4.9, RBC 3.77 L, Hgb 11.3 L, Hct 36.8 L, MCV 97.6 H, MCH 30.0, MCHC 30.7 L, RDW Std Deviation 59.7 H, RDW Coeff of Lance 17.1 H, Plt Count 192, MPV 11.8, Immature Gran % (Auto) 0.400, Neut % (Auto) 58.6, Lymph % (Auto) 17.1 L, [place] % (Auto) 15.5 H, Eos % (Auto) 7.6 H, Baso % (Auto) 0.8, Absolute Neuts (auto) 2.9, Absolute Lymphs (auto) 0.84, Nucleated RBC % 0 06/10/20 02:45: Sodium Cancelled, Potassium Cancelled, Chloride Cancelled, Carbon Dioxide Cancelled, Anion Gap Cancelled, BUN Cancelled, Creatinine Cancelled, Estim Creat Clear Calc Cancelled, Est GFR (MDRD) Af Amer Cancelled, Est GFR (MDRD) Non-Af Cancelled, BUN/Creatinine Ratio Cancelled, Glucose Cancelled, Calcium Cancelled, Troponin I Cancelled 06/10/20 03:05: D-Dimer Quant (PE/DVT) Cancelled 06/10/20 03:27: Sodium 138, Potassium 4.5, Chloride 94 L, Carbon Dioxide 35.0 H, Anion Gap 9, BUN 42 H, Creatinine 9.64 H*, Estim Creat Clear Calc 10.73, Est GFR (MDRD) Af Amer 8 L, Est GFR (MDRD) Non-Af 7 L, BUN/Creatinine Ratio 4.4 L, Glucose 83, Calcium 8.1 L, Troponin I 0.029 06/10/20 03:27: D-Dimer Quant (PE/DVT) 2.67 H* 06/10/20 03:27: PT 14.7, INR 1.2, APTT 30.1 06/10/20 06:54: Troponin I 0.170 H, TSH 2.67, Free T4 1.25 06/10/20 09:30: Troponin I 0.610 H* Current Medications Acetaminophen (Tylenol) 650 mg PO Q6H PRN PRN PRN Reason: Pain Score 1-10/Temp > 100.7 F Last Admin: 06/10/20 15:49 Dose: 650 mg Documented by: Al Hydroxide/Mg Hydroxide (Mylanta Ii) 30 ml PO Q6H PRN PRN PRN Reason: Gastric Burning Albuterol Sulfate (Ventolin Aerosols) 2.5 mg INHALATION Q2H PRN PRN PRN Reason: Dyspnea, wheezing Apixaban (Eliquis) 2.5 mg PO BID [facility] Last Admin: 06/10/20 15:44 Dose: Not Given Documented by: Aspirin (Ecotrin) 81 mg PO DAILY@0800 [facility] Last Admin: 06/10/20 15:52 Dose: 81 mg Documented by: Cinacalcet (Sensipar) 60 mg PO MOWEFR [facility] Guaifenesin (Robitussin) 20 ml PO Q4H PRN PRN PRN Reason: COUGH Hydralazine HCl (Apresoline Iv) 10 mg IV Q4H PRN PRN PRN Reason: SBP > 160 Magnesium Hydroxide (Milk Of Magnesia) 30 ml PO DAILY PRN PRN PRN Reason: Constipation Metoprolol Tartrate (Lopressor (Beta Yossi)) 25 mg PO BID [facility] Last Admin: 06/10/20 15:44 Dose: Not Given Documented by: Morphine Sulfate () 2 mg IV Q3H PRN PRN PRN Reason: Pain Score 6-10/10 Nitroglycerin (Nitrostat) 0.4 mg SUBLINGUAL Q5M PRN PRN Reason: CARDIAC/CHEST PAIN Non-Formulary Medication (Ferric Citrate) 630 mg PO TIDCM [facility] Ondansetron HCl (Zofran) 4 mg IV Q8H PRN PRN PRN Reason: NAUSEA/VOMITING Oxycodone HCl (Oxyir) 5 mg PO Q4H PRN PRN PRN Reason: Pain Score 4-5/10 Prochlorperazine Edisylate (Compazine Iv) 5 mg IV Q4H PRN PRN PRN Reason: Breakthrough Nausea/Vomiting Psyllium Hydrophilic Mucilloid (Metamucil) 1 packet PO DAILY PRN PRN PRN Reason: Constipation Senna/Docusate Sodium (Senokot-S, Skye-Colace) 2 tablet PO BID PRN PRN PRN Reason: Constipation Sodium Chloride () 10 - 40 ml IV UD PRN PRN Reason: SALINE FLUSH Last Admin: 06/10/20 17:10 Dose: 10 ml Documented by: Throat Lozenges (Cepacol Sore Throat Lozenge) 1 lozenge MUCOUS MEM Q2H PRN PRN PRN Reason: SORE THROAT Assessment/Plan All Active Problems (Last Updated 04/06/20 @ 17:[address] Dorothea Martin MD) Chest pain (Acute) Atrial fibrillation with RVR (Acute) COVID-19 (Acute) Expressive aphasia (Acute) ESRD. HD today. Next HD likely friday ANemia. gets long acting with ANABELLA AFIB. has been an issue. BP borderline because of this. fluid removal has been an issue. cardiology on consult now.
[2020-06-10] MEDS: APIXABAN 2.5 MG TABLET PO (21:22)
[2020-06-10] MEDS: Morphine 2 MG/ML Syringe IV (23:33)
[2020-06-11] VITALS (13 sets, daily range): BP systolic 81–108; BP diastolic 38–63; PULSE 85–103; RESP 17–21; TEMP 36.3–36.8; O2SAT 95–100
--- NOTE | 2020-06-11 05:29 | CPS ---
Changed CPAP mask to a nasal mask interface for comfort. Fitted on patient with comfort. Leak and volumes are good. SOFTWARE INTERN will monitor.
[2020-06-11 06:30] LABS: Absolute Lymphocyte Count 0.99 X10^3/uL (0.83-4.51); Absolute Neutrophil Count 2.2 X10^3/uL (2.0-7.7); Basophil# 0.04 X10^3/uL; Basophil% 0.9 % (0-1); Eosinophil# 0.39 X10^3/uL; Eosinophils% 8.8 % (0-5); Hematocrit 36.2 % (40-54); Lymphocyte # 0.99 X10^3/ul (4.0); Lymphocyte % 22.4 % (19-41); Mean Corp Hgb Conc 30.4 g/dL (32-36); Mean Corpuscular Hgb 29.8 pg (27.0-32.0); Mean Corpuscular Volume 98.1 fL (80-94); Monocyte# 0.79 X10^3/uL; Monocyte% 17.9 % (0-10); NRBC Flagged by Analyzer 0 % (0-5); Neutrophil # 2.18 X10^3/uL (2.7-7.7); Neutrophil % 49.5 % (47-70); Platelet Count 177 K/mm3 (150-450); RBC Distribution Width CV 16.2 % (11.6-14.6); RBC Distribution Width SD 58.9 fl (35.1-43.9); Red Blood Count 3.69 M/mm3 (4.6-6.2); White Blood Count 4.4 K/mm3 (4.4-11.0)
[2020-06-11 07:36] LABS: ALB/GLOB Ratio 0.6 RATIO (0.9-2.4); AST(SGOT) 16 U/L (15-37); Alanine Aminotransfer ALT/SGPT 19 U/L (16-61); Alkaline Phosphatase 58 U/L (45-117); Anion Gap 8 (5-15); BUN 35 mg/dL (7-18); BUN/Creat Ratio 4.1 RATIO (10-20); Calcium,Total 7.7 mg/dL (8.5-10.1); Chloride 93 mmol/L (98-107); Cholesterol 157 mg/dL (200); Creatinine, Serum 8.57 mg/dL (0.70-1.30); EST Glomerular Filtration Rate 7 mL/min (>60); Est Glom Filt Rate - Afr Amer 9 mL/min (>60); Estimated Creatinine Clearance 12.07 ml/min; Globulin 4.9 g/dL (2.2-4.2); Glucose 80 mg/dL (74-106); High Density Lipoprotein 38 mg/dL; Potassium 4.5 mmol/L (3.5-5.1); Protein, Total 7.9 g/dL (6.4-8.2); Sodium Level 133 mmol/L (136-145); Triglycerides 100 mg/dL; Very Low Density Lipoprotein 20 mg/dL (5-40)
--- NOTE | 2020-06-11 09:33 | EKG12_ITS ---
Test Reason : C.P. ADMISSION Blood Pressure : / mmHG Vent. Rate : 084 BPM Atrial Rate : 288 BPM P-R Int : 000 ms QRS Dur : 068 ms QT Int : 380 ms P-R-T Axes : 000 147 045 degrees QTc Int : 449 ms Atrial fibrillation Septal infarct , age undetermined Abnormal ECG When compared with ECG of 10-JUN-2020 02:26, MANUAL COMPARISON REQUIRED, DATA IS UNCONFIRMED Confirmed by SALMA STAHL, JACOBY ([id number]), publication editor MARGARITO CHANDLER ([id number]) on 06/14/2020 11:41:42 AM Referred By: SIMONE Confirmed By:JACOBY MARSH MD
[2020-06-11] MEDS: APIXABAN 2.5 MG TABLET PO (10:09)
[2020-06-11] MEDS: Metoprolol Tartrate 25 MG Tablet PO (10:09)
[2020-06-11] MEDS: oxyCODONE 5 MG Tablet PO (10:09)
[2020-06-11] MEDS: Aspirin E.C. 81 MG Tablet PO (10:09)
--- NOTE | 2020-06-11 11:02 | PN.CARD_ITS ---
Subjectve: Patient converted to normal sinus rhythm last night. He is very comfortable this morning however he still complained of substernal heaviness. Patient had normal cardiac catheterization done 2 years ago. Transesophageal echocardiography showed moderate to severe mitral stenosis with [place] score of 6 deemed not a candidate for balloon valvuloplasty Objective: Vital Signs Temp Pulse Resp BP Pulse Ox 97.4 F L 98 18 107/63 96 06/11/20 09:47 06/11/20 10:09 06/11/20 09:47 06/11/20 10:06/11/20 09:47 Oxygen Flow Rate (L/min) 2 Oxygen Delivery Method Room Air Weight: 292 lb 12.382 oz Body Mass Index (BMI) 42.0 Intake and Output for Last 24 Hours 06/09/20 06/10/20 06/11/20 23:59 23:59 23:59 Intake Total 2290 / 2290 240 / 240 Output Total 3550 / 3550 Balance -1260 / -1260 240 / 240 General: No Acute Distress Neck: Supple Lungs: Clear to auscultation Cardiovascular: Regular Rhythm - Heart sounds distant, murmur is difficult to listen to Abdomen: Bowel Sounds Present, Soft, Non Tender, No HSM, No Organomegaly Neurological: No Focal Motor or Sensory Deficit Psych/Mental Status: Appropriate, Normal Affect 06/11/20 05:18: WBC 4.4, RBC 3.69 L, Hgb 11.0 L, Hct 36.2 L, MCV 98.1 H, MCH 29.8, MCHC 30.4 L, Plt Count 177, MPV 11.0, Immature Gran % (Auto) 0.500, Neut % (Auto) 49.5, Lymph % (Auto) 22.4, [place] % (Auto) 17.9 H, Eos % (Auto) 8.8 H, Baso % (Auto) 0.9, Absolute Neuts (auto) 2.2, Nucleated RBC % 0 06/11/20 05:18: Sodium 133 L, Potassium 4.5, Chloride 93 L, Carbon Dioxide 32.0, Anion Gap 8, BUN 35 H, Creatinine 8.57 H*, Est GFR (MDRD) Af Amer 9 L, Est GFR (MDRD) Non-Af 7 L, BUN/Creatinine Ratio 4.1 L, Glucose 80, Calcium 7.7 L, Total Bilirubin 0.30, Triglycerides 100, Cholesterol 157, LDL Cholesterol 99, VLDL Cholesterol 20, HDL Cholesterol 38 L Rhythm: EKG: ECHO: Stress Test: Cardiac Cath: PCI: CT Surgery: Holter monitor: EPS: PPM: CXR: Chest CT Scan: Medical Necessity - Tobacco Use Smoking Status: Never smoker Tobacco Use: Non-smoker Assessment/Plan Patient has had mild symptomatic recurrence of atrial fibrillation and fast ventricular rate. From YONATHAN 2018 patient is deemed to have moderate to severe mitral stenosis with [place] score of 6. Mean gradient was 13 and normal pulmonary systolic blood pressure. It was deemed not to be a balloon valvuloplasty candidate. He had cardiac catheterization August 2018 and showed insignificant coronary artery disease. Prior to that, patient normal nuclear stress test. He has not been taking his Eliquis for 10 days. Last ni ght patient converted to normal sinus rhythm. Heart rates in the 90s. Blood pressure 110 systolic. I would recommend low-dose Toprol 25 mg daily. Echocardiogram result is pending
--- NOTE | 2020-06-11 11:18 | DCINST_ITS ---
- Discharge Diagnoses Current Active Problems: Current Active and Chronic Problems (Last Updated 04/06/20 @ 17:[address] Dorothea Martin MD) Chest pain (Acute) Atrial fibrillation with RVR (Acute) You will use the following diet at home:: Cardiac Discharge Activity: Return to Normal Activity Call your doctor if you observe: Shortness of breath, Dizziness, Fainting spells, Chest pain, Increased palpitations (irregular heartbeat) Allergies/Adverse Reactions: Allergies No Known Allergies Allergy (Verified 06/10/20 02:22) Medications to take at Discharge Ferric Citrate [Auryxia] 630 mg PO TIDCM 02/05/19 Apixaban [Eliquis] 2.5 mg PO BID 04/05/20 Metoprolol(XL)Succ [Toprol Xl (Beta Yossi)] 50 mg PO DAILY #60 tab 06/11/20 The following prescriptions were given: Metoprolol(XL)Succ [Toprol Xl (Beta Yossi)] 50 mg PO DAILY #60 tab Transmission Status: Pending to [facility] Primary Care Physician: Pawel Banda MD [Primary Care Provider] - Please follow up with your Primary Care Physician in: 1 Week, may see Shahram Major NP Test Results: Test results from this visit will be discussed in further detail at your follow- up appointment, if applicable. Please Follow Up With: Kenneth Lau NP-C When: 1 Week Proposed Discharge Date: 06/11/20
--- NOTE | 2020-06-11 11:21 | PCM.DC.SUM ---
<Lela Tsang [employer]IS[employer] - Last Filed: 06/11/20 11:41> Discharge Date and Diagnosis Date of Admission: 06/10/20 Date of Discharge: 06/11/20 - Primary Discharge Diagnosis Acute Problems: Active Problems (Last Updated 04/06/20 @ 17:[address] Dorothea Martin MD) 1. Paroxysmal atrial fibrillation with RVR 2. Chest pain with abnormal troponin 3. End-stage renal disease on hemodialysis 4. Anemia of chronic disease 5. Morbid obesity 6. Valvular heart disease 7. History of DVT/PE 8. YEIMY - Secondary Discharge Diagnosis Chronic Problems: Chronic Problems (Last Updated 04/06/20 @ 17:[address] Dorothea Martin MD) ESRD on hemodialysis (Chronic) PAF (paroxysmal atrial fibrillation) (Chronic) Dialysis patient (Chronic) Anemia of chronic disorder (Chronic) Hypertension (Chronic) ESRD (end stage renal disease) (Chronic) Due to hypertension, On hemodialysis, TTS, followed by Dr. Goncalves Morbidly obese (Chronic) Sleep apnea (Chronic) 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 due to renal insufficiency (Chronic) Hematuria (Chronic) Pelvic mass (Chronic) Chronic pelvic pain in male (Chronic) Chronic kidney disease-mineral and bone disorder (Chronic) Mitral valve stenosis (Chronic) Sleep apnea (Chronic) Hearing loss (Chronic) in both ears Hospital Course and Treatment Imaging Results: Diagnostic Data Chest X-Ray 06/10/20 02:37 IMPRESSION: Bilateral pulmonary opacities suspicious for pneumonia, atypical viral pneumonia and/or hypoventilatory changes Significant stable S-shaped thoracolumbar spine scoliosis partially included on the [id number] which could be further evaluated with scoliosis series as an outpatient with clinical correlation and physical exam Electronically Signed: Harley Miranda, at 3:42 EDT Tel , Service support , Chest CTA 06/10/20 04:17 IMPRESSION: No demonstrated central pulmonary embolism or arterial dissection. Electronically Signed: Sam Overton, at 6:00 EDT Tel , Service support , Dr. Pimentel- Cardiology Operations: None Procedures: None Summary of Care Provided: The patient is a 40 year old M admitted 06/10/2020 due to chest pain and palpitations. 1. Paroxysmal atrial fibrillation with RVR-Echocardiogram October 2019 demonstrated an EF of 70%, moderate mitral valve calcification. Patient received IV digoxin and IV Cardizem bolus. Converted to sinus rhythm. Continue Eliquis which patient reports recent noncompliance with. Transitioned from metoprolol tartrate to Toprol XL 50 mg daily. Follow-up with cardiology in 1 week. 2. Chest pain with abnormal troponin-cardiology consulted during admission. Cardiac cath August 2018 showed normal coronary arteries. Suspect demand ischemia related to #1. No further work-up at this time. 3. End-stage renal disease on hemodialysis-continue dialysis regimen, outpatient follow-up with nephrology. 4. Anemia of chronic disease-stable. 5. Morbid obesity-encouraged diet and lifestyle modifications. 6. Valvular heart disease-Per echo as noted above. Outpatient follow-up. Consider repeat echo as outpatient to assess mitral valve. 7. History of DVT/PE- CTA negative for PE. On Eliquis. 8. YEIMY-continue home Pap regimen. General: Alert, Oriented x3, Cooperative HEENT: Atraumatic, PERRLA, EOMI, Normocephalic Neck: Supple, No JVD, Negative Carotid Bruits Lungs: Clear to auscultation, Diminished Cardiovascular: Regular rate, regular rhythm, + murmur Abdomen: Bowel Sounds Present, Soft, Non Tender, Non-Distended, Obese Extremities: No clubbing, No cyanosis, No edema, Capillary Refill Less than 3 Seconds Skin: No rashes, No breakdown Musculoskeletal: No Tenderness to Palpation of Joints or Extremities Neurological: Cranial nerves II-XII grossly intact, Neuro grossly intact Psych/Mental Status: Normal Affect, Appropriate Patient seen and examined prior to discharge. Physical assessment as noted above. Patient is stable for discharge with follow up recommendations as noted above. This patient was seen by YVONNE Randolph under the supervision of Dr. Beavers. - Physical Exam Vitals/I&O's: Vital Signs Temp Pulse Resp BP Pulse Ox 97.4 F L 98 18 107/63 96 06/11/20 09:47 06/11/20 10:09 06/11/20 09:47 06/11/20 10:09 06/11/20 09:47 Oxygen Flow Rate (L/min) 2 Oxygen Delivery Method Room Air Weight: 292 lb 12.382 oz Body Mass Index (BMI) 42.0 Intake and Output for Last 24 Hours 06/09/20 06/10/20 06/11/20 23:59 23:59 23:59 Intake Total 2290 / 2290 240 / 240 Output Total 3550 / 3550 Balance -1260 / -1260 240 / 240 Laboratory Results 06/11/20 05:18: WBC 4.4, RBC 3.69 L, Hgb 11.0 L, Hct 36.2 L, MCV 98.1 H, MCH 29.8, MCHC 30.4 L, RDW Std Deviation 58.9 H, RDW Coeff of Lance 16.2 H, Plt Count 177, MPV 11.0, Immature Gran % (Auto) 0.500, Neut % (Auto) 49.5, Lymph % (Auto) 22.4, Isabella % (Auto) 17.9 H, Eos % (Auto) 8.8 H, Baso % (Auto) 0.9, Absolute Neuts (auto) 2.2, Absolute Lymphs (auto) 0.99, Nucleated RBC % 0 06/11/20 05:18: Sodium 133 L, Potassium 4.5, Chloride 93 L, Carbon Dioxide 32.0, Anion Gap 8, BUN 35 H, Creatinine 8.57 H*, Estim Creat Clear Calc 12.07, Est GFR (MDRD) Af Amer 9 L, Est GFR (MDRD) Non-Af 7 L, BUN/Creatinine Ratio 4.1 L, Glucose 80, Calcium 7.7 L, Total Bilirubin 0.30, AST 16, ALT 19, Alkaline Phosphatase 58, Total Protein 7.9, Albumin 3.0 L, Globulin 4.9 H, Albumin/Globulin Ratio 0.6 L, Triglycerides 100, Cholesterol 157, LDL Cholesterol 99, VLDL Cholesterol 20, HDL Cholesterol 38 L Current Medications Acetaminophen (Tylenol) 650 mg PO Q6H PRN PRN PRN Reason: Pain Score 1-10/Temp > 100.7 F Last Admin: 06/10/20 15:49 Dose: 650 mg Documented by: Al Hydroxide/Mg Hydroxide (Mylanta Ii) 30 ml PO Q6H PRN PRN PRN Reason: Gastric Burning Albuterol Sulfate (Ventolin Aerosols) 2.5 mg INHALATION Q2H PRN PRN PRN Reason: Dyspnea, wheezing Apixaban (Eliquis) 2.5 mg PO BID [facility] Last Admin: 06/11/20 10:09 Dose: 2.5 mg Documented by: Aspirin (Ecotrin) 81 mg PO DAILY@0800 [facility] Last Admin: 06/11/20 10:09 Dose: 81 mg Documented by: Cinacalcet (Sensipar) 60 mg PO MOWEFR [facility] Guaifenesin (Robitussin) 20 ml PO Q4H PRN PRN PRN Reason: COUGH Hydralazine HCl (Apresoline Iv) 10 mg IV Q4H PRN PRN PRN Reason: SBP > 160 Magnesium Hydroxide (Milk Of Magnesia) 30 ml PO DAILY PRN PRN PRN Reason: Constipation Metoprolol Succinate (Toprol Xl (Beta Yossi)) 50 mg PO DAILY [facility] Nitroglycerin (Nitrostat) 0.4 mg SUBLINGUAL Q5M PRN PRN Reason: CARDIAC/CHEST PAIN Non-Formulary Medication (Ferric Citrate) 630 mg PO TIDCM [facility] Ondansetron HCl (Zofran) 4 mg IV Q8H PRN PRN PRN Reason: NAUSEA/VOMITING Oxycodone HCl (Oxyir) 5 mg PO Q4H PRN PRN PRN Reason: Pain Score 4-5/10 Last Admin: 06/11/20 10:09 Dose: 5 mg Documented by: Pantoprazole Sodium (Protonix) 40 mg PO DAILY [facility] Prochlorperazine Edisylate (Compazine Iv) 5 mg IV Q4H PRN PRN PRN Reason: Breakthrough Nausea/Vomiting Psyllium Hydrophilic Mucilloid (Metamucil) 1 packet PO DAILY PRN PRN PRN Reason: Constipation Senna/Docusate Sodium (Senokot-S, Skye-Colace) 2 tablet PO BID PRN PRN PRN Reason: Constipation Sodium Chloride () 10 - 40 ml IV UD PRN PRN Reason: SALINE FLUSH Last Admin: 06/10/20 23:32 Dose: 10 ml Documented by: Throat Lozenges (Cepacol Sore Throat Lozenge) 1 lozenge MUCOUS MEM Q2H PRN PRN PRN Reason: SORE THROAT Discharge Diet: Low fat/ Low Cholesterol Discharge Activity: Return to Normal Activity Call your doctor if you observe: Shortness of breath, Dizziness, Fainting spells, Chest pain, Increased palpitations (irregular heartbeat) Home Medications: Medications to take at Discharge Ferric Citrate [Auryxia] 630 mg PO TIDCM 02/05/19 Apixaban [Eliquis] 2.5 mg PO BID 04/05/20 Metoprolol(XL)Succ [Toprol Xl (Beta Yossi)] 50 mg PO DAILY #60 tab 06/11/20 Following Prescriptions Were Given to Patient: Metoprolol(XL)Succ [Toprol Xl (Beta Yossi)] 50 mg PO DAILY #60 tab Transmission Status: Received by [facility] Primary Care Physician: Pawel Banda MD [Primary Care Provider] - Please follow up with your Primary Care Physician in: 1 Week, may see Shahram Major NP Please Follow Up With: Kenneth Lau NP-C When: 1 Week Please Follow Up With: Tameka Melendez MD When: As scheduled for hemodialysis Disposition: Home Minutes spent on discharge:: 35 Patient Condition:: Stable Medical Necessity - Tobacco Use Smoking Status: Never smoker Tobacco Use: Non-smoker Meaningful Use Info Meaningful Use Diagnoses (Choose all that apply): None applicable <Gilson Beavers - Last Filed: 06/11/20 11:51> Discharge Date and Diagnosis - Secondary Discharge Diagnosis Chronic Problems: Chronic Problems (Last Updated 04/06/20 @ 17:[address] Dorothea Martin MD) ESRD on hemodialysis (Chronic) PAF (paroxysmal atrial fibrillation) (Chronic) Dialysis patient (Chronic) Anemia of chronic disorder (Chronic) Hypertension (Chronic) ESRD (end stage renal disease) (Chronic) Due to hypertension, On hemodialysis, TTS, followed by Dr. Goncalves Morbidly obese (Chronic) Sleep apnea (Chronic) 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 due to renal insufficiency (Chronic) Hematuria (Chronic) Pelvic mass (Chronic) Chronic pelvic pain in male (Chronic) Chronic kidney disease-mineral and bone disorder (Chronic) Mitral valve stenosis (Chronic) Sleep apnea (Chronic) Hearing loss (Chronic) in both ears Hospital Course and Treatment Summary of Care Provided: [This patient was seen in conjunction with [employer]ela. I have independently interviewed and examined the patient and reviewed pertinent history, examination findings, laboratory and plan of management. I have reviewed the note and agree with the documented findings with the few additional points. In brief, patient is 40-year-old Afro-Martiniquais gentleman with multiple comorbidities including ESRD on hemodialysis, paroxysmal A. fib, morbid obesity history of DVT/PE came to ED with palpitation and found to be A. fib with RVR. With high d-dimer, there was also suspicion of PE but no central or major pulmonary arterial embolism found on CTPA. IV heparin drip was stopped and patient put back on Eliquis. Patient is on metoprolol. Troponins, elevated especially the third one 0.61. Manganese Breaker was consulted. Patient does not have chest pain seems mainly demand ischemia from A. fib with RVR with severe mitral stenosis. Manganese Breaker ordered digoxin 500 mcg IV 1 dose. Patient converted normal sinus rhythm. Patient is on metoprolol XL succinate 50 mg daily and a prescription given. His cardiac cath in August 2018 shows normal coronary arteries and prior to stress test was also normal. YONATHAN on September 2018 shows severely calcified, severely thickened annulus. Findings consistent with moderate to severe stenosis, mean gradient 12 mm. Evans score 6. RVSP 25 Hg. As per morphology of the moderate to severe MS, patient is not candidate for valvuloplasty. He advised repeat echo which is ordered but not done on Friday. Advised follow-up bench press operator Dr. ellington for outpatient echo. Discharge medication reconciliation done. Discharge follow-up instructions completed. Discharge process discussed with the patient and all questions were answered to patient's satisfaction. Follow-up with emergency department physician and bench press operator. Total time spent, exact 35 minutes on discharge meds reconciliation, examination, coordination of care with nurses and ancillary staff, review of imaging and blood test and discussion with the patient on follow-up instructions I have discussed my assessment with [employer] ARTISANLela and orders have been reviewed.] Objective: Seen and examined. Patient has low blood pressure yesterday, 80/43 after hemodialysis. Patient has chronic hypotension and has been an issue during hemodialysis. 500 normal saline bolus was given yesterday. Currently blood pressure profile is better 108/54. Seen by emergency department physician. Patient seen by bench press operator and patient has moderately severe mitral stenosis. Patient converted to normal sinus rhythm overnight. Patient denies chest pain or shortness of breath, near syncope. Multiple comorbidities including obstructive sleep apnea, hypertension, valvular heart disease moderate to severe mitral stenosis. Mean valve gradient 13 mmHg. RVSP 30 mmHg YONATHAN suggestive of not suitable candidate for balloon valvuloplasty. Physical exam General: Alert, Oriented x3, Cooperative HEENT: Atraumatic, PERRLA, EOMI, Normocephalic Oral: No Gingival or Mucosal Lesions/ Ulcerations Neck: Supple, No JVD, Negative Carotid Bruits Lungs: Air entry diminished in bilateral lung bases. No crepitation/rhonchi, uses nasal CPAP during nap and night Cardiovascular: Regular rate and rhythm. Heart rate in 90s. Normal S1, Normal S2, no murmur auscultated, suggestive of clinically severe mitral stenosis Abdomen: Bowel Sounds Present, Soft, Non Tender, Non-Distended : No renal angle tenderness. No suprapubic tenderness. Extremities: No edema, Capillary Refill Less than 3 Seconds Skin: No rashes, No breakdown Musculoskeletal: No Tenderness to Palpation of Joints or Extremities Neurological: Cranial nerves II-XII grossly intact, Deep Tendon Reflexes 2+/4 and Symmetrical, Neuro grossly intact Psych/Mental Status: Normal Affect, Appropriate. - Physical Exam Vitals/I&O's: Vital Signs Temp Pulse Resp BP Pulse Ox 97.4 F L 98 18 107/63 96 06/11/20 09:47 06/11/20 10:09 06/11/20 09:47 06/11/20 10:09 06/11/20 09:47 Oxygen Flow Rate (L/min) 2 Oxygen Delivery Method Room Air Weight: 292 lb 12.382 oz Body Mass Index (BMI) 42.0 Intake and Output for Last 24 Hours 06/09/20 06/10/20 06/11/20 23:59 23:59 23:59 Intake Total 2290 / 2290 240 / 240 Output Total 3550 / 3550 Balance -1260 / -1260 240 / 240 Laboratory Results 06/11/20 05:18: WBC 4.4, RBC 3.69 L, Hgb 11.0 L, Hct 36.2 L, MCV 98.1 H, MCH 29.8, MCHC 30.4 L, RDW Std Deviation 58.9 H, RDW Coeff of Lance 16.2 H, Plt Count 177, MPV 11.0, Immature Gran % (Auto) 0.500, Neut % (Auto) 49.5, Lymph % (Auto) 22.4, Isabella % (Auto) 17.9 H, Eos % (Auto) 8.8 H, Baso % (Auto) 0.9, Absolute Neuts (auto) 2.2, Absolute Lymphs (auto) 0.99, Nucleated RBC % 0 06/11/20 05:18: Sodium 133 L, Potassium 4.5, Chloride 93 L, Carbon Dioxide 32.0, Anion Gap 8, BUN 35 H, Creatinine 8.57 H*, Estim Creat Clear Calc 12.07, Est GFR (MDRD) Af Amer 9 L, Est GFR (MDRD) Non-Af 7 L, BUN/Creatinine Ratio 4.1 L, Glucose 80, Calcium 7.7 L, Total Bilirubin 0.30, AST 16, ALT 19, Alkaline Phosphatase 58, Total Protein 7.9, Albumin 3.0 L, Globulin 4.9 H, Albumin/Globulin Ratio 0.6 L, Triglycerides 100, Cholesterol 157, LDL Cholesterol 99, VLDL Cholesterol 20, HDL Cholesterol 38 L Current Medications Acetaminophen (Tylenol) 650 mg PO Q6H PRN PRN PRN Reason: Pain Score 1-10/Temp > 100.7 F Last Admin: 06/10/20 15:49 Dose: 650 mg Documented by: Al Hydroxide/Mg Hydroxide (Mylanta Ii) 30 ml PO Q6H PRN PRN PRN Reason: Gastric Burning Albuterol Sulfate (Ventolin Aerosols) 2.5 mg INHALATION Q2H PRN PRN PRN Reason: Dyspnea, wheezing Apixaban (Eliquis) 2.5 mg PO BID [facility] Last Admin: 06/11/20 10:09 Dose: 2.5 mg Documented by: Aspirin (Ecotrin) 81 mg PO DAILY@0800 [facility] Last Admin: 06/11/20 10:09 Dose: 81 mg Documented by: Cinacalcet (Sensipar) 60 mg PO MOWEFR [facility] Guaifenesin (Robitussin) 20 ml PO Q4H PRN PRN PRN Reason: COUGH Hydralazine HCl (Apresoline Iv) 10 mg IV Q4H PRN PRN PRN Reason: SBP > 160 Magnesium Hydroxide (Milk Of Magnesia) 30 ml PO DAILY PRN PRN PRN Reason: Constipation Metoprolol Succinate (Toprol Xl (Beta Yossi)) 50 mg PO DAILY [facility] Nitroglycerin (Nitrostat) 0.4 mg SUBLINGUAL Q5M PRN PRN Reason: CARDIAC/CHEST PAIN Non-Formulary Medication (Ferric Citrate) 630 mg PO TIDCM [facility] Ondansetron HCl (Zofran) 4 mg IV Q8H PRN PRN PRN Reason: NAUSEA/VOMITING Oxycodone HCl (Oxyir) 5 mg PO Q4H PRN PRN PRN Reason: Pain Score 4-5/10 Last Admin: 06/11/20 10:09 Dose: 5 mg Documented by: Pantoprazole Sodium (Protonix) 40 mg PO DAILY [facility] Last Admin: 06/11/20 11:42 Dose: Not Given Documented by: Prochlorperazine Edisylate (Compazine Iv) 5 mg IV Q4H PRN PRN PRN Reason: Breakthrough Nausea/Vomiting Psyllium Hydrophilic Mucilloid (Metamucil) 1 packet PO DAILY PRN PRN PRN Reason: Constipation Senna/Docusate Sodium (Senokot-S, Skye-Colace) 2 tablet PO BID PRN PRN PRN Reason: Constipation Sodium Chloride () 10 - 40 ml IV UD PRN PRN Reason: SALINE FLUSH Last Admin: 06/10/20 23:32 Dose: 10 ml Documented by: Throat Lozenges (Cepacol Sore Throat Lozenge) 1 lozenge MUCOUS MEM Q2H PRN PRN PRN Reason: SORE THROAT Inpatient E&M: 81009 Disch Hosp
--- NOTE | 2020-06-11 15:53 | PN_ITS ---
<Lela Tsang [employer]ATH[employer] - Last Filed: 06/11/20 15:57> Subjective: Patient seen and examined. Prior to discharge, notified that patient's blood pressure was running low and patient felt mildly lightheaded. Will give 500 cc fluid bolus and recheck. Patient cleared by cardiology for discharge. Will repeat BP and reassess prior to discharge. - Physical Exam Vitals/I&O's: Vital Signs Temp Pulse Resp BP Pulse Ox 97.4 F L 85 18 107/63 96 06/11/20 09:47 06/11/20 11:48 06/11/20 09:47 06/11/20 10:09 06/11/20 09:47 Oxygen Flow Rate (L/min) 2 Oxygen Delivery Method Room Air Weight: 292 lb 12.382 oz Body Mass Index (BMI) 42.0 Intake and Output for Last 24 Hours 06/09/20 06/10/20 06/11/20 23:59 23:59 23:59 Intake Total 2290 / 2290 240 / 240 Output Total 3550 / 3550 Balance -1260 / -1260 240 / 240 General: Alert, Oriented x3, Cooperative HEENT: Atraumatic, PERRLA, EOMI, Normocephalic Neck: Supple, No JVD, Negative Carotid Bruits Lungs: Clear to auscultation, Diminished Cardiovascular: Regular rate, Regular Rhythm, Murmur Abdomen: Bowel Sounds Present, Soft, Non Tender, Non-Distended, Obese Extremities: No clubbing, No cyanosis, No edema, Capillary Refill Less than 3 Seconds Skin: No rashes, No breakdown Musculoskeletal: No Tenderness to Palpation of Joints or Extremities Neurological: Cranial nerves II-XII grossly intact, Neuro grossly intact Psych/Mental Status: Normal Affect, Appropriate Laboratory Results 06/11/20 05:18: WBC 4.4, RBC 3.69 L, Hgb 11.0 L, Hct 36.2 L, MCV 98.1 H, MCH 29.8, MCHC 30.4 L, RDW Std Deviation 58.9 H, RDW Coeff of Lance 16.2 H, Plt Count 177, MPV 11.0, Immature Gran % (Auto) 0.500, Neut % (Auto) 49.5, Lymph % (Auto) 22.4, Coos % (Auto) 17.9 H, Eos % (Auto) 8.8 H, Baso % (Auto) 0.9, Absolute Neuts (auto) 2.2, Absolute Lymphs (auto) 0.99, Nucleated RBC % 0 06/11/20 05:18: Sodium 133 L, Potassium 4.5, Chloride 93 L, Carbon Dioxide 32.0, Anion Gap 8, BUN 35 H, Creatinine 8.57 H*, Estim Creat Clear Calc 12.07, Est GFR (MDRD) Af Amer 9 L, Est GFR (MDRD) Non-Af 7 L, BUN/Creatinine Ratio 4.1 L, Glucose 80, Calcium 7.7 L, Total Bilirubin 0.30, AST 16, ALT 19, Alkaline Phosphatase 58, Total Protein 7.9, Albumin 3.0 L, Globulin 4.9 H, Albumin/Globulin Ratio 0.6 L, Triglycerides 100, Cholesterol 157, LDL Cholesterol 99, VLDL Cholesterol 20, HDL Cholesterol 38 L Current Medications Acetaminophen (Tylenol) 650 mg PO Q6H PRN PRN PRN Reason: Pain Score 1-10/Temp > 100.7 F Last Admin: 06/10/20 15:49 Dose: 650 mg Documented by: Al Hydroxide/Mg Hydroxide (Mylanta Ii) 30 ml PO Q6H PRN PRN PRN Reason: Gastric Burning Albuterol Sulfate (Ventolin Aerosols) 2.5 mg INHALATION Q2H PRN PRN PRN Reason: Dyspnea, wheezing Apixaban (Eliquis) 2.5 mg PO BID [facility] Last Admin: 06/11/20 10:09 Dose: 2.5 mg Documented by: Aspirin (Ecotrin) 81 mg PO DAILY@0800 [facility] Last Admin: 06/11/20 10:09 Dose: 81 mg Documented by: Cinacalcet (Sensipar) 60 mg PO MOWEFR [facility] Guaifenesin (Robitussin) 20 ml PO Q4H PRN PRN PRN Reason: COUGH Hydralazine HCl (Apresoline Iv) 10 mg IV Q4H PRN PRN PRN Reason: SBP > 160 Sodium Chloride () 500 mls @ 999 mls/hr IV .Q31M ONE Stop: 06/11/20 16:22 Magnesium Hydroxide (Milk Of Magnesia) 30 ml PO DAILY PRN PRN PRN Reason: Constipation Metoprolol Succinate (Toprol Xl (Beta Yossi)) 50 mg PO DAILY [facility] Nitroglycerin (Nitrostat) 0.4 mg SUBLINGUAL Q5M PRN PRN Reason: CARDIAC/CHEST PAIN Non-Formulary Medication (Ferric Citrate) 630 mg PO TIDCM [facility] Ondansetron HCl (Zofran) 4 mg IV Q8H PRN PRN PRN Reason: NAUSEA/VOMITING Oxycodone HCl (Oxyir) 5 mg PO Q4H PRN PRN PRN Reason: Pain Score 4-5/10 Last Admin: 06/11/20 10:09 Dose: 5 mg Documented by: Pantoprazole Sodium (Protonix) 40 mg PO DAILY [facility] Last Admin: 06/11/20 11:42 Dose: Not Given Documented by: Prochlorperazine Edisylate (Compazine Iv) 5 mg IV Q4H PRN PRN PRN Reason: Breakthrough Nausea/Vomiting Psyllium Hydrophilic Mucilloid (Metamucil) 1 packet PO DAILY PRN PRN PRN Reason: Constipation Senna/Docusate Sodium (Senokot-S, Skye-Colace) 2 tablet PO BID PRN PRN PRN Reason: Constipation Sodium Chloride () 10 - 40 ml IV UD PRN PRN Reason: SALINE FLUSH Last Admin: 06/10/20 23:32 Dose: 10 ml Documented by: Throat Lozenges (Cepacol Sore Throat Lozenge) 1 lozenge MUCOUS MEM Q2H PRN PRN PRN Reason: SORE THROAT Medical Necessity - Tobacco Use Smoking Status: Never smoker Tobacco Use: Non-smoker Assessment/Plan All Active Problems (Last Updated 04/06/20 @ 17:[address] Dorothea Martin MD) Chest pain (Acute) Atrial fibrillation with RVR (Acute) COVID-19 (Acute) Expressive aphasia (Acute) 1. Paroxysmal atrial fibrillation with RVR-Echocardiogram October 2019 demonstrated an EF of 70%, moderate mitral valve calcification. Patient received IV digoxin and IV Cardizem bolus. Converted to sinus rhythm. Continue Eliquis which patient reports recent noncompliance with. Transitioned from metoprolol tartrate to Toprol XL 50 mg daily. Follow-up with cardiology in 1 week. 2. Chest pain with abnormal troponin-cardiology consulted during admission. Cardiac cath August 2018 showed normal coronary arteries. Suspect demand ischemia related to #1. No further work-up at this time. 3. End-stage renal disease on hemodialysis-continue dialysis regimen, outpatient follow-up with nephrology. 4. Anemia of chronic disease-stable. 5. Morbid obesity-encouraged diet and lifestyle modifications. 6. Valvular heart disease-Per echo as noted above. Outpatient follow-up. Consider repeat echo as outpatient to assess mitral valve. 7. History of DVT/PE- CTA negative for PE. On Eliquis. 8. YEIMY-continue home Pap regimen. DVT prophylaxis-Eliquis This patient was seen by YVONNE Randolph under the supervision of Dr. Beavers. <Gilson Beavers - Last Filed: 06/11/20 17:44> Subjective: Seen and examined. Patient had low blood pressure but his blood pressure might be inaccurate as the patient has bilateral arm fistula, nonfunctioning. On exam, patient is sitting, watching TV, eating his meal with no signs and symptoms suggesting of distress or hypotension although he complains of feeling dizzy. Objective: Please see exam finding of the same date on the discharge summary. - Physical Exam Vitals/I&O's: Vital Signs Temp Pulse Resp BP Pulse Ox 97.4 F L 85 18 107/63 96 06/11/20 09:47 06/11/20 11:48 06/11/20 09:47 06/11/20 10:09 06/11/20 09:47 Oxygen Flow Rate (L/min) 2 Oxygen Delivery Method Room Air Weight: 292 lb 12.382 oz Body Mass Index (BMI) 42.0 Intake and Output for Last 24 Hours 06/09/20 06/10/20 06/11/20 23:59 23:59 23:59 Intake Total 2290 / 2290 240 / 240 Output Total 3550 / 3550 Balance -1260 / -1260 240 / 240 Laboratory Results 06/11/20 05:18: WBC 4.4, RBC 3.69 L, Hgb 11.0 L, Hct 36.2 L, MCV 98.1 H, MCH 29.8, MCHC 30.4 L, RDW Std Deviation 58.9 H, RDW Coeff of Lance 16.2 H, Plt Count 177, MPV 11.0, Immature Gran % (Auto) 0.500, Neut % (Auto) 49.5, Lymph % (Auto) 22.4, Coos % (Auto) 17.9 H, Eos % (Auto) 8.8 H, Baso % (Auto) 0.9, Absolute Neuts (auto) 2.2, Absolute Lymphs (auto) 0.99, Nucleated RBC % 0 06/11/20 05:18: Sodium 133 L, Potassium 4.5, Chloride 93 L, Carbon Dioxide 32.0, Anion Gap 8, BUN 35 H, Creatinine 8.57 H*, Estim Creat Clear Calc 12.07, Est GFR (MDRD) Af Amer 9 L, Est GFR (MDRD) Non-Af 7 L, BUN/Creatinine Ratio 4.1 L, Gluc ose 80, Calcium 7.7 L, Total Bilirubin 0.30, AST 16, ALT 19, Alkaline Phosphatase 58, Total Protein 7.9, Albumin 3.0 L, Globulin 4.9 H, Albumin/Globulin Ratio 0.6 L, Triglycerides 100, Cholesterol 157, LDL Cholesterol 99, VLDL Cholesterol 20, HDL Cholesterol 38 L Current Medications Acetaminophen (Tylenol) 650 mg PO Q6H PRN PRN PRN Reason: Pain Score 1-10/Temp > 100.7 F Last Admin: 06/10/20 15:49 Dose: 650 mg Documented by: Al Hydroxide/Mg Hydroxide (Mylanta Ii) 30 ml PO Q6H PRN PRN PRN Reason: Gastric Burning Albuterol Sulfate (Ventolin Aerosols) 2.5 mg INHALATION Q2H PRN PRN PRN Reason: Dyspnea, wheezing Apixaban (Eliquis) 2.5 mg PO BID [facility] Last Admin: 06/11/20 10:09 Dose: 2.5 mg Documented by: Aspirin (Ecotrin) 81 mg PO DAILY@0800 [facility] Last Admin: 06/11/20 10:09 Dose: 81 mg Documented by: Cinacalcet (Sensipar) 60 mg PO MOWEFR [facility] Guaifenesin (Robitussin) 20 ml PO Q4H PRN PRN PRN Reason: COUGH Hydralazine HCl (Apresoline Iv) 10 mg IV Q4H PRN PRN PRN Reason: SBP > 160 Magnesium Hydroxide (Milk Of Magnesia) 30 ml PO DAILY PRN PRN PRN Reason: Constipation Metoprolol Succinate (Toprol Xl (Beta Yossi)) 50 mg PO DAILY [facility] Nitroglycerin (Nitrostat) 0.4 mg SUBLINGUAL Q5M PRN PRN Reason: CARDIAC/CHEST PAIN Non-Formulary Medication (Ferric Citrate) 630 mg PO TIDCM [facility] Ondansetron HCl (Zofran) 4 mg IV Q8H PRN PRN PRN Reason: NAUSEA/VOMITING Pantoprazole Sodium (Protonix) 40 mg PO DAILY [facility] Last Admin: 06/11/20 11:42 Dose: Not Given Documented by: Prochlorperazine Edisylate (Compazine Iv) 5 mg IV Q4H PRN PRN PRN Reason: Breakthrough Nausea/Vomiting Psyllium Hydrophilic Mucilloid (Metamucil) 1 packet PO DAILY PRN PRN PRN Reason: Constipation Senna/Docusate Sodium (Senokot-S, Skye-Colace) 2 tablet PO BID PRN PRN PRN Reason: Constipation Sodium Chloride () 10 - 40 ml IV UD PRN PRN Reason: SALINE FLUSH Last Admin: 06/10/20 23:32 Dose: 10 ml Documented by: Throat Lozenges (Cepacol Sore Throat Lozenge) 1 lozenge MUCOUS MEM Q2H PRN PRN PRN Reason: SORE THROAT Assessment/Plan Patient was given 500 normal saline bolus and his repeat blood pressure is in systolic 90. As per the network control supervisor also address his baseline blood pressure which fluctuates between 80-100 mmHg systolic. As noted above, patient does not show any signs of symptoms of distress and is eating well comfortably and watching TV. I talked to him and try to educate him that his blood pressure and arms may not be accurate because of fistula in both arms. I also offered him 1 more 500 normal saline bolus but he states he gets fluid overloaded, short of breath and then the dialysis need. He has appointment for dialysis tomorrow a.m. He agreed to get discharge and go home. Overall including his physical exam suggestive of not respiratory distress, hypotension tachypnea or hypoxia.
--- NOTE | 2020-06-11 17:07 | NURSING ---
Dr. Beavers at bedside speaking with patient.
--- NOTE | 2020-06-11 17:14 | NURSING ---
RN called and spoke to patient's , [place]. Informed her that Dr. Beavers and the patient spoke. The patient doesn't want to receive another IV bolus and would rather go home instead. Dr. Beavers informed this RN he is okay with patient going home and receiving dialysis tomorrow. Requesting for patient's to pick him up. agrees to same.
== END 2020-06-11 11:19 | disposition home or self-care (01) ==
LOC: ED 04:16 → PCU 05:22
PROVIDERS: Admitting Provider Family Medicine; Emergency Provider Emergency Medicine; PCP Internal Medicine; Visit Provider Internal Medicine
DX: I48.0 Paroxysmal atrial fibrillation (principal); I12.0 Hypertensive chronic kidney disease with stage 5 chronic kidney disease or end stage renal disease; N18.6 End stage renal disease; I25.2 Old myocardial infarction; Z99.2 Dependence on renal dialysis; Z79.899 Other long term (current) drug therapy; Z79.01 Long term (current) use of 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s; Z86.711 Personal history of pulmonary embolism; G47.33 Obstructive sleep apnea (adult) (pediatric); D63.8 Anemia in other chronic diseases classified elsewhere; E66.01 Morbid (severe) obesity due to excess calories; N25.81 Secondary hyperparathyroidism of renal origin; Z68.41 Body mass index [BMI] 40.0-44.9, adult; Z86.718 Personal history of other venous thrombosis and embolism; I05.0 Rheumatic mitral stenosis; R07.89 Other chest pain; R79.89 Other specified abnormal findings of blood chemistry
CPT/HCPCS: 36415; 71045; 71275; 80048; 80053; 80061; 84439; 84443; 84484; 85025; 85379; 85610; 85730; 90937; 93005; 94002; 94660; 96361; 96374; 96375; 99218; 99285; J7030; J7040; Q9967; A4216; G0257; G0378

== ENCOUNTER → 2020-07-14 21:21 | Emergency (ER) | payer MEDICARE, MEDICAID, SELFPAY ==
[2020-06-10 06:28] VITALS: BMI 42.0
[2020-07-14 21:22] VITALS: BP 140/86; PULSE 64; RESP 18; TEMP 36.4; O2SAT 96; BMI 41.4
--- NOTE | 2020-07-14 21:50 | ED.DCSUM_ITS ---
History of Present Illness Chief Complaint: Back Informant: Patient Onset: Days Context: Sudden Onset Injury: - - No history of fall. May be bending more than normal. Timing: Continuous Quality: Dull, Aching Location: Lumbar Current Severity: Moderate Maximum Severity: Severe Worsened by: improves with: Movement, Ambulation, Bending, Lifting Relieved by: - - Remaining still Associated Symptoms: - - No bowel bladder dysfunction. There is no saddle paresthesia or anesthesia. There is no radicular pain. There is no foot drop. There is no buckling of knees going up or down steps. He denies fever or chills. He denies infected dialysis site. Narrative: Patient is a 40-year-old morbidly obese male who presents with atraumatic central low back pain without radiculopathy or any neurologic deficit. He has no symptoms of infection either. He denies history of herniated disc. He has no other complaints. He has not taken anything for the pain. He has not done anything for the pain i.e. ice or heat. Prior similar symptoms: No Recent Illness/Hospitalization: No - Past Medical History (1) Atrial fibrillation with RVR Status: Acute (2) Anemia of chronic disorder Status: Chronic (3) ESRD on hemodialysis Status: Chronic (4) 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 due to renal insufficiency Status: Chronic (5) Hypertension Status: Chronic (6) Morbidly obese Status: Chronic (7) PAF (paroxysmal atrial fibrillation) Status: Chronic (8) Pelvic mass Status: Chronic (9) Sleep apnea Status: Chronic Past Medical History - Allergies and Home Meds Allergies/Adverse Reactions: Allergies No Known Allergies Allergy (Verified 06/10/20 02:22) Primary Care Physician: Pawel Banda MD [Primary Care Provider] - Prior records reviewed: Yes Surgical History: herniorrhaphy, - - Herniorrhaphy, aVF x2, catheter placements, right upper extremity aneurysm removal. Lives: Alone Smoking Status: Never smoker Alcohol: None Drugs: None - Family History Paternal Family History: Family History (Last Reviewed 11/16/19 @ 13:19 by Kailyn Bryant) Other Adopted Family History: Reports: - - Patient was adopted and does not know his maternal or paternal family history. Maternal Family History: Family History (Last Reviewed 11/16/19 @ 13:19 by Kailyn Bryant) Other Adopted Family History: Reports: - - Patient was adopted and does not know his maternal or paternal family history. Review of Systems General: Denies: Chills, Fever, Malaise, Subjective, Sweats Eyes: Denies: Visual changes - bilaterally, Blurred Vision - bilaterally ENT: Denies: Rhinorrhea, Sore throat Cardiovascular: Denies: Chest pain, Palpitations Respiratory: Denies: Dyspnea, Cough, Dyspnea on exertion Gastrointestinal: Denies: Abdominal pain, Nausea, Vomiting, Diarrhea, Constipation Genitourinary: Denies: Dysuria, Hematuria, Frequency Musculoskeletal: Reports: Back pain. Denies: Myalgias, Arthralgias, Neck pain, Swelling, Extremity Pain Skin: Denies: Rash, Wounds Neurological: Denies: Headache, Weakness, Parasthesia Hematologic: Denies: Easy bruising, Easy bleeding Physical Exam Vital Signs/Narrative: Vital Signs Temp Pulse Resp BP Pulse Ox 07/14/20 21:22 97.5 F L 64 18 140/86 H 96 Inital Vital Signs reviewed: Yes General: Well nourished, Well developed, Obese Head: Normocephalic, Atraumatic Eyes: Perrl, EOMI. Negative for: Pale conjunctiva, Scleral icterus ENT: No rhinorrhea Neck: Supple, Nontender, No lymphadenopathy, - Cardiovascular: Regular rate, Regular rhythm, No murmurs, Normal S1, Normal S2 Respiratory: No distress, CTA bilaterally Rectal: Deferred Back: Normal Inspection, Paraspinal Tenderness, Negative SLR - Right, Negative SLR - Left. Negative for: Nontender, Surgical Scar, Spinal tenderness, CVA tenderness Extremeties: Nontender, Strong Pulses, Symmetric Skin: Normal color, No rash, No Trauma. Negative for: Cyanosis, Diaphoresis, Jaundice Neuro: Alert, Oriented, Normal Strength, Normal Sensation, Normal DTR, Normal Gait - Patient is able to walk on his heels and toes. Patient is able to perform 1 legged squat right and left., Normal Reflexes - 1-2+ patella and ankle and symmetric., - - EHL is intact bilaterally. There is no clonus or Babinski sign. Psychological: Depressed Diagnostic/Tx/Re-eval - Medical Decision Making IV morphine and Zofran was ordered. I was informed by nursing staff that it is difficult to establish an IV. His meds were changed to IM and oral respectively. Patient's history and physical is not consistent with herniated disc. There is no neurologic or vascular findings. There is no concern for epidural abscess either. Will reassess in 30 to 60 minutes. Patient was reassessed at 2235. He reports no improvement. He is reassessed at 2305. He reports slight improvement. He was informed this is muscular pain. He was given additional dose of morphine and discharged with pain medicine. Since he makes urine and has renal failure he is treated with opiate analgesia. ED Disposition - Plan for ED Patient: Disposition: Home or Assisted Living Diagnosis: Acute low back pain without sciatica Instructions: ED Back Pain Acute or Chronic Prescriptions: Hydrocodone Bitart/Apap 5-325 [[place] 5MG-325MG] 1 tablet PO Q6H PRN PRN 3 Days #10 tablet PRN Reason: Pain Transmission Status: Sent to [facility] Referrals: Pawel Banda MD [Primary Care Provider] - 3-5 Days if not improving Additional Instructions: 1. Take medication as prescribed 2. Apply ice 20 to 30 minutes per application 6-8 times a day for the next 3 to 5 days. 3. Avoid lifting, pushing or pulling anything heavy
[2020-07-14] MEDS: Ondansetron ODT 4 MG Tablet PO (21:56)
[2020-07-14] MEDS: morphine 10 MG/ML Syringe 6 MG IM (21:56)
[2020-07-14] MEDS: morphine 8 MG/ML Syringe 6 MG IM (23:21)
[2020-07-14 23:22] VITALS: BP 138/82; PULSE 62; RESP 16; O2SAT 97
== END | disposition home or self-care (01) ==
LOC: ED 23:10
PROVIDERS: PCP Internal Medicine
DX: M54.5 Low back pain (principal); E66.01 Morbid (severe) obesity due to excess calories; I12.0 Hypertensive chronic kidney disease with stage 5 chronic kidney disease or end stage renal disease; N18.6 End stage renal disease; I48.0 Paroxysmal atrial fibrillation; Z99.2 Dependence on renal dialysis
CPT/HCPCS: 96372; 99281; 99283

== ENCOUNTER 2020-07-18 21:23 | Emergency (ER) | payer MEDICARE, MEDICAID, SELFPAY ==
[2020-07-14 21:22] VITALS: BMI 41.4
[2020-07-18 21:24] VITALS: BP 154/96; PULSE 53; RESP 17; TEMP 36.2; O2SAT 91; BMI 41.3
--- NOTE | 2020-07-18 22:22 | ED.VIS.GEN ---
History of Present Illness Chief Complaint: Back Informant: Patient Narrative: Patient presents with approximately 1 week of atraumatic back pain. He states he was seen in the emergency department on Friday and given pain medication. He states that he has not had time to make an appointment with his doctor. He reports no bowel or bladder dysfunction. He is a dialysis patient but does make urine. He denies any radicular symptoms but states that spreads out down towards his buttocks from the low back particularly on the right. He presents at 2200 hrs. for evaluation.He denies any fevers. No IV drug use. No risk factors for epidural or spinal abscess. - Past Medical History (1) Atrial fibrillation with RVR Status: Chronic (2) COVID-19 Status: Chronic (3) Anemia of chronic disorder Status: Chronic (4) ESRD (end stage renal disease) Status: Chronic Comment: Due to hypertension, On hemodialysis, TTS, followed by Dr. Goncalves (5) 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 due to renal insufficiency Status: Chronic (6) Hypertension Status: Chronic (7) Morbidly obese Status: Chronic (8) Sleep apnea Status: Chronic Past Medical History - Allergies and Home Meds Allergies/Adverse Reactions: Allergies No Known Allergies Allergy (Verified 07/18/20 21:26) Primary Care Physician: Pawel Banda MD [Primary Care Provider] - Prior records reviewed: Yes Surgical History: noncontributory, herniorrhaphy, - - Herniorrhaphy, aVF x2, catheter placements, right upper extremity aneurysm removal. Smoking Status: Never smoker Drugs: None - Family History Paternal Family History: Family History (Last Reviewed 11/16/19 @ 13:19 by Kailyn Bryant) Other Adopted Family History: Reports: - - Patient was adopted and does not know his maternal or paternal family history. Maternal Family History: Family History (Last Reviewed 11/16/19 @ 13:19 by Kailyn Bryant) Other Adopted Family History: Reports: - - Patient was adopted and does not know his maternal or paternal family history. Review of Systems General: Denies: Chills, Fever, Sweats Eyes: Denies: Visual changes - bilaterally, Diplopia ENT: Denies: Rhinorrhea, Sore throat Cardiovascular: Denies: Chest pain, Palpitations Respiratory: Denies: Dyspnea, Cough, Dyspnea on exertion Gastrointestinal: Denies: Abdominal pain, Nausea, Vomiting, Diarrhea, Melena, Hematochezia Genitourinary: Denies: Dysuria, Hematuria, Frequency Musculoskeletal: Reports: Back pain. Denies: Extremity Pain Skin: Denies: Rash, Wounds Neurological: Denies: Headache, Weakness, Numbness Physical Exam Vital Signs/Narrative: Vital Signs Temp Pulse Resp BP Pulse Ox 07/18/20 21:24 97.1 F L 53 L 17 154/96 H 91 Inital Vital Signs reviewed: Yes General: Well nourished, Well developed, Obese, No Acute Distress Head: Normocephalic, Atraumatic Eyes: Perrl, EOMI ENT: Moist mucous membranes, No rhinorrhea Neck: Supple, Nontender Cardiovascular: Regular rate, Regular rhythm, No murmurs Respiratory: No distress, CTA bilaterally, Chest nontender Abdomen: Soft, Nontender, Nondistended, Normal bowel sounds Back: - - I simply go to palpate the low back and the patient is flinching and arching his back. With simple touch of the skin he is screaming. I informed him that this simply cannot cause him that much pain to touch his skin.There are no skin tissue texture changes to suggest abscess. Extremities: Nontender, No edema Skin: Normal color, No rash Neurological: Alert, Oriented x3, Cranial nerves II-XII grossly intact, Normal Strength, Normal Sensation Psychological: Normal affect, Normal Mood Diagnostic/Tx/Re-eval - Medical Decision Making Patient does not have any red flag symptoms. I informed the patient that atraumatic back pain is a very difficult thing at times to treat. Often requires physical therapy weight loss stretching and strengthening. I do not believe he has herniated disc issue or other pathology that would require an emergent MRI. He did inquire about x-rays but as it is atraumatic I do not think simple lumbar radiographs will do an adequate job of adding to the treatment and diagnosis. I can write him some pain medication. I would encourage him to follow-up with primary care. ED Disposition - Plan for ED Patient: Disposition: Home or Assisted Living Diagnosis: Lumbar paraspinal muscle spasm Instructions: ED Spasm Back No Trauma Prescriptions: Oxycodone [Oxyir] 5 mg PO Q6H PRN PRN 3 Days #12 tab PRN Reason: pain Prescription Printed Referrals: Pawel Banda MD [Primary Care Provider] - As soon as possible
[2020-07-18] MEDS: oxyCODONE 5 MG Tablet 10 MG PO (22:37)
== END 2020-07-18 22:41 | disposition home or self-care (01) ==
PROVIDERS: Emergency Provider Emergency Medicine; PCP Internal Medicine
DX: M62.830 Muscle spasm of back (principal); E66.01 Morbid (severe) obesity due to excess calories
CPT/HCPCS: 99283

== ENCOUNTER 2020-08-18 10:28 | Emergency (ER) | payer MEDICARE, MEDICAID, SELFPAY ==
[2020-07-31 13:36] VITALS: BMI 41.1
[2020-08-18] VITALS (8 sets, daily range): BP systolic 88–120; BP diastolic 53–89; PULSE 108–153; RESP 12–24; TEMP 36.7; O2SAT 98–100; BMI 42.6
--- NOTE | 2020-08-18 10:39 | EKG12_ITS ---
Test Reason : CARDIOVERSION Blood Pressure : / mmHG Vent. Rate : 108 BPM Atrial Rate : 108 BPM P-R Int : 168 ms QRS Dur : 072 ms QT Int : 342 ms P-R-T Axes : 071 142 047 degrees QTc Int : 458 ms Sinus tachycardia Right axis deviation Anterior infarct , age undetermined Abnormal ECG Confirmed by SALMA STAHL, JACOBY ([id number]), editorial director MARGARITO CHANDLER ([id number]) on 08/21/2020 9:46:50 AM Referred By: RONAK Confirmed By:JACOBY MARSH MD
[2020-08-18 10:51] LABS: Absolute Lymphocyte Count 0.95 X10^3/uL (0.83-4.51); Absolute Neutrophil Count 4.8 X10^3/uL (2.0-7.7); Basophil# 0.06 X10^3/uL; Basophil% 0.8 % (0-1); Eosinophil# 0.46 X10^3/uL; Eosinophils% 6.4 % (0-5); Hematocrit 37.9 % (40-54); Lymphocyte # 0.95 X10^3/ul (4.0); Lymphocyte % 13.3 % (19-41); Mean Corp Hgb Conc 31.7 g/dL (32-36); Mean Corpuscular Hgb 30.8 pg (27.0-32.0); Mean Corpuscular Volume 97.4 fL (80-94); Monocyte# 0.85 X10^3/uL; Monocyte% 11.9 % (0-10); NRBC Flagged by Analyzer 0 % (0-5); Neutrophil # 4.79 X10^3/uL (2.7-7.7); Neutrophil % 67.2 % (47-70); Platelet Count 189 K/mm3 (150-450); RBC Distribution Width CV 16.6 % (11.6-14.6); RBC Distribution Width SD 59.4 fl (35.1-43.9); Red Blood Count 3.89 M/mm3 (4.6-6.2); White Blood Count 7.1 K/mm3 (4.4-11.0)
--- NOTE | 2020-08-18 11:01 | RAD_ITS ---
STUDY: X-RAY CHEST REASON FOR EXAM: Male, 40 years old. CP X1 DAY, FLUTTER, TACHYCARDIA, DIALYSIS PT, HX AFIB, HTN AND MN TECHNIQUE: Single AP portable view of the chest. COMPARISON: Comparison is made with prior study dated 06/10/2020. FINDINGS: EKG electrodes are seen. There is evidence of vascular congestion and mild CHF. There is no demonstrated pleural abnormality. Normal size heart. Normal mediastinum and michael. Normal visualized pulmonary arteries. Normal visualized aortic arch and descending thoracic aorta. There is a dextroscoliosis of the thoracic spine. Normal visualized ribs, clavicles, and shoulders. There is no demonstrated abnormality of the visualized soft tissue structures of the upper abdomen. RAD/Chest 1 View (Portable) IMPRESSION: Vascular congestion and mild CHF. Electronically Signed: Ed Vega, at 11:12 EST , Service support ,
[2020-08-18 11:15] LABS: ALB/GLOB Ratio 0.6 RATIO (0.9-2.4); AST(SGOT) 12 U/L (15-37); Alanine Aminotransfer ALT/SGPT 16 U/L (16-61); Albumin, Serum 3.2 g/dL (3.2-5.0); Alkaline Phosphatase 65 U/L (45-117); Anion Gap 2 (5-15); BUN 23 mg/dL (7-18); BUN/Creat Ratio 3.2 RATIO (10-20); Calcium,Total 8.3 mg/dL (8.5-10.1); Chloride 97 mmol/L (98-107); Creatinine, Serum 7.15 mg/dL (0.70-1.30); EST Glomerular Filtration Rate 9 mL/min (>60); Est Glom Filt Rate - Afr Amer 11 mL/min (>60); Estimated Creatinine Clearance 14.46 ml/min; Globulin 5.4 g/dL (2.2-4.2); Glucose 120 mg/dL (74-106); Magnesium 2.2 mg/dL (1.6-2.6); Protein, Total 8.6 g/dL (6.4-8.2); Sodium Level 134 mmol/L (136-145)
[2020-08-18] MEDS: fentaNYL 100 MCG/2 ML Ampul 25 MCG IV (11:27)
[2020-08-18] MEDS: Etomidate 20 MG/10 ML Vial IV (11:29)
--- NOTE | 2020-08-18 11:58 | ED.DCSUM_ITS ---
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 He states he typically gets this when he goes into A. fib. He states normally he can feel when he is in A. fib. Symptoms began yesterday. He went to dialysis but was not on the machine the entire time. He states he currently does not have a rhinestone setter. He states that he has been compliant with his Eliquis for the past month. He takes metoprolol. He states he has not been on amiodarone or digoxin. He states that typically after dialysis his blood pressure is low in terms of the 80-90 range. - Past Medical History (1) Atrial fibrillation with RVR Status: Chronic (2) Dialysis patient Status: Chronic (3) ESRD (end stage renal disease) Status: Chronic Comment: Due to hypertension, On hemodialysis, TTS, followed by Dr. Goncalves (4) 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 due to renal insufficiency Status: Chronic (5) Hypertension Status: Chronic (6) Mitral valve stenosis Status: Chronic (7) Morbidly obese Status: Chronic (8) Sleep apnea Status: Chronic Past Medical History - Allergies and Home Meds Allergies/Adverse Reactions: Allergies No Known Allergies Allergy (Verified 08/18/20 10:35) Primary Care Physician: Pawel Banda MD [Primary Care Provider] - As Needed Prior records reviewed: Yes Surgical History: noncontributory, herniorrhaphy, - - Herniorrhaphy, aVF x2, catheter placements, right upper extremity aneurysm removal. Lives: Spouse/ Significant Other Smoking Status: Never smoker Drugs: None - Family History Paternal Family History: Family History (Last Reviewed 07/31/20 @ 13:43 by Misa Dominguez) Other Adopted Family History: Reports: - - Patient was adopted and does not know his maternal or paternal family history. Maternal Family History: Family History (Last Reviewed 07/31/20 @ 13:43 by Misa Dominguez) Other Adopted Family History: Reports: - - Patient was adopted and does not know his maternal or paternal family history. Review of Systems General: Denies: Chills, Fever, Sweats Eyes: Denies: Visual changes - bilaterally, Diplopia ENT: Denies: Rhinorrhea, Sore throat Cardiovascular: Reports: Chest pain. Denies: Palpitations Respiratory: Denies: Dyspnea, Cough, Dyspnea on exertion Gastrointestinal: Denies: Abdominal pain, Nausea, Vomiting, Diarrhea, Melena, Hematochezia Genitourinary: Denies: Dysuria, Hematuria, Frequency Musculoskeletal: Denies: Back pain, Extremity Pain Skin: Denies: Rash, Wounds Neurological: Denies: Headache, Weakness, Numbness Physical Exam Vital Signs/Narrative: Vital Signs Temp Pulse Pulse Pulse Pulse Pulse Pulse 08/18/20 11:50 109 H 08/18/20 11:45 108 H 08/18/20 11:40 108 H 08/18/20 11:29 145 H 145 H 143 H 108 H 109 H 08/18/20 11:26 145 H 08/18/20 10:29 98.1 F 153 H Resp Resp Resp Resp Resp Resp BP 08/18/20 11:50 20 H 120/88 H 08/18/20 11:45 20 H 104/87 H 08/18/20 11:40 20 H 98/59 L 08/18/20 11:29 18 18 18 12 24 H 08/18/20 11:26 18 105/89 H 08/18/20 10:29 22 H 99/76 BP BP BP BP BP Pulse Ox 08/18/20 11:50 100 08/18/20 11:45 100 08/18/20 11:40 100 08/18/20 11:29 105/89 H 105/89 H 105/72 88/53 L 98/59 L 08/18/20 11:26 100 08/18/20 10:29 99 Inital Vital Signs reviewed: Yes General: Well nourished, Well developed, Obese, No Acute Distress Head: Normocephalic, Atraumatic Eyes: Perrl, EOMI ENT: Moist mucous membranes, No rhinorrhea Neck: Supple, Nontender Cardiovascular: No murmurs, Irregular, Tachycardia Respiratory: No distress, CTA bilaterally, Chest nontender Abdomen: Soft, Nontender, Nondistended, Normal bowel sounds Back: Nontender, Normal Inspection Extremities: Nontender, No edema Skin: Normal color, No rash Neurological: Alert, Oriented x3, Cranial nerves II-XII grossly intact, Normal Strength, Normal Sensation Psychological: Normal affect, Normal Mood Diagnostic/Tx/Re-eval Laboratory Last Values WBC 7.1 K/mm3 (4.4-11.0) 08/18/20 10:45 RBC 3.89 M/mm3 (4.6-6.2) L 08/18/20 10:45 Hgb 12.0 g/dL (13.0-16.5) L 08/18/20 10:45 Hct 37.9 % (40-54) L 08/18/20 10:45 MCV 97.4 fL (80-94) H 08/18/20 10:45 MCH 30.8 pg (27.0-32.0) 08/18/20 10:45 MCHC 31.7 g/dL (32-36) L 08/18/20 10:45 RDW Std Deviation 59.4 fl (35.1-43.9) H 08/18/20 10:45 RDW Coeff of Lance 16.6 % (11.6-14.6) H 08/18/20 10:45 Plt Count 189 K/mm3 (150-450) 08/18/20 10:45 MPV 10.0 fl (6.2-12.0) 08/18/20 10:45 Immature Gran % (Auto) 0.400 % (0.0-0.9) 08/18/20 10:45 Neut % (Auto) 67.2 % (47-70) 08/18/20 10:45 Lymph % (Auto) 13.3 % (19-41) L 08/18/20 10:45 [place] % (Auto) 11.9 % (0-10) H 08/18/20 10:45 Eos % (Auto) 6.4 % (0-5) H 08/18/20 10:45 Baso % (Auto) 0.8 % (0-1) 08/18/20 10:45 Absolute Neuts (auto) 4.8 X10^3/uL (2.0-7.7) 08/18/20 10:45 Absolute Lymphs (auto) 0.95 X10^3/uL (0.83-4.51) 08/18/20 10:45 Nucleated RBC % 0 % (0-5) 08/18/20 10:45 Sodium 134 mmol/L (136-145) L 08/18/20 10:45 Potassium 4.0 mmol/L (3.5-5.1) 08/18/20 10:45 Chloride 97 mmol/L (98-107) L 08/18/20 10:45 Carbon Dioxide 35.0 mmol/L (21.0-32.0) H 08/18/20 10:45 Anion Gap 2 (5-15) L 08/18/20 10:45 BUN 23 mg/dL (7-18) H 08/18/20 10:45 Creatinine 7.15 mg/dL (0.70-1.30) H 08/18/20 10:45 Estim Creat Clear Calc 14.46 ml/min 08/18/20 10:45 Est GFR (MDRD) Af Amer 11 mL/min (>60) L 08/18/20 10:45 Est GFR (MDRD) Non-Af 9 mL/min (>60) L 08/18/20 10:45 BUN/Creatinine Ratio 3.2 RATIO (10-20) L 08/18/20 10:45 Glucose 120 mg/dL (74-106) H 08/18/20 10:45 Calcium 8.3 mg/dL (8.5-10.1) L 08/18/20 10:45 Magnesium 2.2 mg/dL (1.6-2.6) 08/18/20 10:45 Total Bilirubin 0.50 mg/dL (0.20-1.00) 08/18/20 10:45 AST 12 U/L (15-37) L 08/18/20 10:45 ALT 16 U/L (16-61) 08/18/20 10:45 Alkaline Phosphatase 65 U/L (45-117) 08/18/20 10:45 Troponin I 0.197 ng/mL (<0.045) H 08/18/20 10:45 Total Protein 8.6 g/dL (6.4-8.2) H 08/18/20 10:45 Albumin 3.2 g/dL (3.2-5.0) 08/18/20 10:45 Globulin 5.4 g/dL (2.2-4.2) H 08/18/20 10:45 Albumin/Globulin Ratio 0.6 RATIO (0.9-2.4) L 08/18/20 10:45 Clinical Impression(s) from Imaging Studies Chest X-Ray 08/18/20 11:01 IMPRESSION: Vascular congestion and mild CHF. Electronically Signed: Ed Vega, at 11:12 EST , Service support , - EKG Initial EKG Interpretation: - - EKG demonstrates atrial flutter 2-1 conduction at a rate of 143. Follow-up EKG Interpretation: Sinus Tachycardia - EKG demonstrates a sinus tachycardia at a rate of 108 without concerning features of ACS. - Medical Decision Making patient's troponin is slightly elevated which is consistent with prior troponins when he has been in A. fib. Therefore I think this is most likely a type II troponin. I did discuss the case with on-call cardiology. Their recommendation as he has been compliant with his Eliquis would be electrical cardioversion. Patient provided informed consent for the use of procedural sedation for electrical cardioversion. I did discuss with the patient and the several times. He received 25 mcg of fentanyl followed by 20 mg of etomidate. Once adequate sedation was achieved the patient received a 200 J synchronized shock. This resulted in conversion to a sinus tachycardia. The patient was allowed to recover and is now resting comfortably and eating. Total time is to face spent for procedure was 14 minutes. At this point patient be discharged home. I expressed that he should really be following with cardiology. ED Disposition - Plan for ED Patient: Disposition: Home or Assisted Living Diagnosis: Paroxysmal atrial fibrillation with rapid ventricular response, Encounter for cardioversion procedure Instructions: ED AFIB, ED Procedural Sedation, (Adult) Referrals: Pawel Banda MD [Primary Care Provider] - As Needed Nnamdi Moreno MD [STAFF PHYSICIAN] - (for cardiology )
--- NOTE | 2020-08-18 12:30 | EKG12_ITS ---
Test Reason : AFIB Blood Pressure : / mmHG Vent. Rate : 143 BPM Atrial Rate : 286 BPM P-R Int : 000 ms QRS Dur : 064 ms QT Int : 292 ms P-R-T Axes : 178 153 040 degrees QTc Int : 450 ms Suspect arm lead reversal, interpretation assumes no reversal Atrial flutter with 2:1 A-V conduction Right axis deviation Anterior infarct , age undetermined Abnormal ECG Confirmed by SALMA STAHL, JACOBY ([id number]), news video editor MARGARITO CHANDLER ([id number]) on 08/21/2020 9:46:20 AM Referred By: RONAK Confirmed By:JACOBY MARSH MD
== END 2020-08-18 12:57 | disposition home or self-care (01) ==
LOC: ED 12:20
PROVIDERS: Emergency Provider Emergency Medicine; PCP Internal Medicine
DX: I48.0 Paroxysmal atrial fibrillation (principal); E66.01 Morbid (severe) obesity due to excess calories; I13.2 Hypertensive heart and chronic kidney disease with heart failure and with stage 5 chronic kidney disease, or end stage renal disease; I50.9 Heart failure, unspecified; N18.6 End stage renal disease; Z99.2 Dependence on renal dialysis
CPT/HCPCS: 71045; 80053; 83735; 84484; 85025; 92960; 93005; 96374; 96375; 99152; 99285; J7030; A4216

== ENCOUNTER 2020-09-26 11:09 | Outpatient (RCR) | payer MEDICARE, MEDICAID, SELFPAY ==
[2020-09-25 14:32] VITALS: BMI 41.0
[2020-09-26 12:39] LABS: International Normalized Ratio 3.4; Prothrombin Time (Protime)PT. 33.7 SECONDS (11.7-14.9)
== END 2020-09-28 23:59 ==
LOC: BIMLAB 11:09
PROVIDERS: PCP Internal Medicine; Referring Provider Internal Medicine; Visit Provider Internal Medicine
DX: Z79.01 Long term (current) use of 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s (principal)
CPT/HCPCS: 36415; 85610

== ENCOUNTER 2020-09-28 06:19 | Emergency (ER) | payer MEDICARE, MEDICAID, SELFPAY ==
[2020-09-25 14:32] VITALS: BMI 41.0
[2020-09-28 06:21] VITALS: BP 113/59; PULSE 96; RESP 18; TEMP 36.1; O2SAT 96; BMI 41.7
--- NOTE | 2020-09-28 06:39 | ED.VIS.GEN ---
History of Present Illness Chief Complaint: General Illness Informant: Patient Narrative: 40-year-old male presenting for evaluation. He states that he does have dialysis Friday, Friday, Friday. Patient states he did dialysis last night but took his metoprolol late. He felt like he was in A. fib for a little while but after taking his metoprolol is got better. He states he went to work this morning felt like he was a little more tired than usual. He states he sometimes gets this way when his blood pressure is low so he came to the ER. He is not had any chest pain, shortness of breath. He has no fever, chills, cough, loss of taste or smell, myalgias. He states he feels otherwise well. - Past Medical History (1) Anemia of chronic disorder Status: Chronic (2) Atrial fibrillation with RVR Status: Chronic (3) Dialysis patient Status: Chronic Past Medical History - Allergies and Home Meds Allergies/Adverse Reactions: Allergies No Known Allergies Allergy (Verified 09/28/20 06:28) Primary Care Physician: Pawel Banda MD [Primary Care Provider] - Prior records reviewed: Yes Past Medical History: - - Reviewed in problem list Surgical History: noncontributory, herniorrhaphy, - - Herniorrhaphy, aVF x2, catheter placements, right upper extremity aneurysm removal. Lives: With Family Smoking Status: Never smoker Alcohol: None Drugs: None - Family History Paternal Family History: Family History (Last Reviewed 07/31/20 @ 13:43 by Misa Dominguez) Other Adopted Family History: Reports: - - Patient was adopted and does not know his maternal or paternal family history. Maternal Family History: Family History (Last Reviewed 07/31/20 @ 13:43 by Misa Dominguez) Other Adopted Family History: Reports: - - Patient was adopted and does not know his maternal or paternal family history. Review of Systems General: Reports: - - Slight fatigue. Denies: Chills, Fever, Sweats Eyes: Denies: Visual changes - bilaterally, Diplopia ENT: Denies: Rhinorrhea, Sore throat Cardiovascular: Reports: Palpitations. Denies: Chest pain Respiratory: Denies: Dyspnea, Cough, Dyspnea on exertion Gastrointestinal: Denies: Abdominal pain, Nausea, Vomiting, Diarrhea, Melena, Hematochezia Genitourinary: Denies: Dysuria, Hematuria, Frequency Musculoskeletal: Denies: Back pain, Extremity Pain Skin: Denies: Rash, Wounds Neurological: Denies: Headache, Weakness, Numbness Physical Exam Vital Signs/Narrative: Vital Signs Temp Pulse Resp BP Pulse Ox 09/28/20 06:21 97.0 F L 96 18 113/59 L 96 Inital Vital Signs reviewed: Yes General: Well nourished, No Acute Distress Head: Normocephalic, Atraumatic Eyes: Perrl, EOMI ENT: Moist mucous membranes, No rhinorrhea Cardiovascular: Regular rate, Regular rhythm Respiratory: No distress. Negative for: Retractions Skin: Normal color, No rash. Negative for: Cyanosis, Diaphoresis Neurological: Alert, Oriented x3, Cranial nerves II-XII grossly intact Psychological: Normal affect, Normal Mood Diagnostic/Tx/Re-eval - Medical Decision Making 40-year-old male with end-stage renal disease on dialysis presenting for evaluation of what he thought was A. fib last evening. He states he feels otherwise well except for some fatigue he was experiencing at work. He had concern for hypotension. In the ER today his vital signs are normal. Patient had dialysis last evening and was able to complete it. Patient was offered lab work and imaging as well as an EKG. He had concerned that he could possibly have a blood clot if his INR level was too low. I was able to look in the medical record and find that he had INR performed on the which was 3.4. This is slightly on the high end. After hearing this he did not want a work-up. He felt well enough to go home. Patient appears otherwise well and nontoxic. He was given return precautions. Impression: 1. Palpitations ED Disposition - Plan for ED Patient: Disposition: Home or Assisted Living Instructions: ED Symptoms With Uncertain Cause Referrals: Pawel Banda MD [Primary Care Provider] -
--- NOTE | 2020-09-28 06:59 | RAD_ITS ---
STUDY: X-RAY CHEST REASON FOR EXAM: Male, 40 years old. CHEST PAIN TECHNIQUE: Single AP portable view of the chest. COMPARISON: None. FINDINGS: The lungs are clear and expanded. There is no demonstrated pleural abnormality. Normal size heart. Normal mediastinum and michael. Normal visualized pulmonary arteries. Normal visualized aortic arch and descending thoracic aorta. There is a dextroscoliosis of the thoracic spine. There is degenerative osteoarthritis of the bilateral shoulders. There is deformity of the proximal left humerus. There is no demonstrated abnormality of the visualized soft tissue structures of the upper abdomen. RAD/Chest 1 View (Portable) IMPRESSION: No demonstrated acute cardiopulmonary process. Electronically Signed: Sam Overton, at 7:47 EST Tel , Service support ,
--- NOTE | 2020-09-28 06:59 | EKG12_ITS ---
Test Reason : Blood Pressure : / mmHG Vent. Rate : 074 BPM Atrial Rate : 074 BPM P-R Int : 172 ms QRS Dur : 082 ms QT Int : 412 ms P-R-T Axes : 064 210 074 degrees QTc Int : 457 ms Normal sinus rhythm Right superior axis deviation Possible Anterior infarct , age undetermined Abnormal ECG Confirmed by SALMA STAHL, JACOBY ([id number]), movie editor MARGARITO CHANDLER ([id number]) on 10/02/2020 9:01:49 AM Referred By: BOBBI Confirmed By:JACOBY MARSH MD
[2020-09-28 07:30] LABS: Absolute Neutrophil Count 3.2 X10^3/uL (2.0-7.7); Basophil# 0.05 X10^3/uL; Basophil% 0.9 % (0-1); Eosinophil# 0.27 X10^3/uL; Eosinophils% 4.9 % (0-5); Hematocrit 35.7 % (40-54); Lymphocyte % 18.1 % (19-41); Mean Corp Hgb Conc 30.8 g/dL (32-36); Mean Corpuscular Hgb 30.1 pg (27.0-32.0); Mean Corpuscular Volume 97.8 fL (80-94); Monocyte# 0.93 X10^3/uL; Monocyte% 16.9 % (0-10); NRBC Flagged by Analyzer 0 % (0-5); Neutrophil # 3.23 X10^3/uL (2.7-7.7); Neutrophil % 58.7 % (47-70); Platelet Count 230 K/mm3 (150-450); RBC Distribution Width CV 17.2 % (11.6-14.6); RBC Distribution Width SD 62.2 fl (35.1-43.9); Red Blood Count 3.65 M/mm3 (4.6-6.2); White Blood Count 5.5 K/mm3 (4.4-11.0)
[2020-09-28 07:45] LABS: Anion Gap 8 (5-15); BUN 39 mg/dL (7-18); BUN/Creat Ratio 4.6 RATIO (10-20); Calcium,Total 8.2 mg/dL (8.5-10.1); Chloride 97 mmol/L (98-107); Creatinine, Serum 8.53 mg/dL (0.70-1.30); EST Glomerular Filtration Rate 8 mL/min (>60); Est Glom Filt Rate - Afr Amer 9 mL/min (>60); Estimated Creatinine Clearance 12.12 ml/min; Glucose 97 mg/dL (74-106); Sodium Level 133 mmol/L (136-145)
--- NOTE | 2020-09-28 07:45 | ED.RN ---
lab called critical of creat.. 8.53 and troponin 0.732
[2020-09-28 08:17] LABS: Prothrombin Time (Protime)PT. 39.1 SECONDS (11.7-14.9)
[2020-09-28 08:41] VITALS: BP 108/70; PULSE 77; RESP 20; O2SAT 99
[2020-09-28 10:00] VITALS: BP 96/78; PULSE 77; RESP 14; O2SAT 99
--- NOTE | 2020-09-28 10:13 | ED.DEP ---
ED Disposition - Plan for ED Patient: Disposition: Against Medical Advice Diagnosis: Transient hypotension, ESRD on hemodialysis, Elevated troponin I level Instructions: ED Low Blood Pressure, All Causes Referrals: Pawel Banda MD [Primary Care Provider] - 1 Day Additional Instructions: Do not take your afternoon dose of your blood pressure medication metoprolol.
[2020-09-28 10:39] VITALS: BP 112/87; PULSE 71; RESP 18; O2SAT 99
== END 2020-09-28 10:41 | disposition left against medical advice (07) ==
PROVIDERS: Emergency Medicine; Emergency Provider Student in an Organized Health Care Education/Training Program; PCP Internal Medicine
DX: R00.2 Palpitations (principal); I48.91 Unspecified atrial fibrillation; Z79.01 Long term (current) use of 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s; Z99.2 Dependence on renal dialysis
CPT/HCPCS: 36415; 71045; 80048; 84484; 85025; 85610; 93005; 99285; J7050; A4216

== ENCOUNTER 2020-10-06 17:06 | Inpatient (IN) | payer MEDICARE, MEDICAID, SELFPAY ==
[2020-10-06] VITALS (8 sets, daily range): BP systolic 107–135; BP diastolic 56–78; PULSE 84–98; RESP 16–17; TEMP 36.4–36.9; O2SAT 98–100; BMI 40.8; BMI 43.3; BMI 42.0; BMI 42.1
--- NOTE | 2020-10-06 17:33 | EKG12_ITS ---
Test Reason : LOSS OF VISION Blood Pressure : / mmHG Vent. Rate : 091 BPM Atrial Rate : 091 BPM P-R Int : 194 ms QRS Dur : 078 ms QT Int : 398 ms P-R-T Axes : 076 128 065 degrees QTc Int : 489 ms Normal sinus rhythm Prolonged QT Abnormal ECG Confirmed by SALMA STAHL, JACOBY ([id number]), editor school photograph MARGARITO CHANDLER ([id number]) on 10/09/2020 10:21:12 AM Referred By: Elisha Hernandez Confirmed By:JACOBY MARSH MD
--- NOTE | 2020-10-06 17:33 | RAD_ITS ---
STUDY: X-RAY CHEST REASON FOR EXAM: Male, 40 years old. Question stroke. Vision changes since 2230 last night. TECHNIQUE: Single AP portable view of the chest. COMPARISON: 09/28/2020. FINDINGS: The lungs are clear and expanded. There is no demonstrated pleural abnormality. Normal size heart. Normal mediastinum and michael. Normal visualized pulmonary arteries. Normal visualized aortic arch and descending thoracic aorta. The thoracic spine is obscured by the mediastinum. Normal visualized ribs, clavicles, and shoulders. There is no demonstrated abnormality of the visualized soft tissue structures of the upper abdomen. RAD/Chest 1 View IMPRESSION: No acute cardiopulmonary disease or interval change. Electronically Signed: Enrico Foster DO at 18:58 EST Tel [phone], Service support ,
[2020-10-06 17:35] LABS: Bedside Glucose 80 mg/dL (70-110)
--- NOTE | 2020-10-06 18:33 | CT_ITS ---
STUDY: CT HEAD STROKE PROTOCOL W/O CONTRAST INJECTION REASON FOR EXAM: Male, 40 years old. Changes at at 2230 last night. TECHNIQUE: Transaxial CT imaging of the brain was performed without administration of intravenous contrast material. Individualized dose optimization techniques were used for this CT. COMPARISON: CT of the head, 04/06/2020. FINDINGS: Normal soft tissue structures. Normal calvarium. There is mild cerebral atrophy with widening of the extra-axial spaces and ventricular dilatation. Normal white matter tracts of the cerebral hemispheres. Normal basal ganglia and thalami. Normal brainstem. Normal cerebellum. There is no intracranial hemorrhage. There are no findings of an acute ischemic infarction. Normal visualized paranasal sinuses. ASPECT score: 10 CT/STROKE Brain/Head without Cont IMPRESSION: No acute intracranial or calvarial abnormality. There is no major interval change. N.B. : The above information has been verbally conveyed by Enrico Foster DO to Maxi Munson MD, on 10/06/2020 18:47:33 (ET). Electronically Signed: Enrico Foster DO at 18:48 EST Tel [phone], Service support ,
[2020-10-06] MEDS: fentaNYL 100 MCG/2 ML Ampul 50 MCG IV (18:57)
[2020-10-06 19:10] LABS: Absolute Lymphocyte Count 0.78 X10^3/uL (0.83-4.51); Basophil# 0.03 X10^3/uL; Basophil% 0.6 % (0-1); Eosinophil# 0.24 X10^3/uL; Eosinophils% 5.1 % (0-5); Hematocrit 33.2 % (40-54); Hemoglobin 10.1 g/dL (13.0-16.5); Lymphocyte # 0.78 X10^3/ul (4.0); Lymphocyte % 16.5 % (19-41); Mean Corp Hgb Conc 30.4 g/dL (32-36); Mean Corpuscular Hgb 29.8 pg (27.0-32.0); Mean Corpuscular Volume 97.9 fL (80-94); Mean Platelet Vol. 10.2 fl (6.2-12.0); Monocyte% 14.8 % (0-10); NRBC Flagged by Analyzer 0 % (0-5); Neutrophil # 2.95 X10^3/uL (2.7-7.7); Neutrophil % 62.6 % (47-70); Platelet Count 179 K/mm3 (150-450); RBC Distribution Width CV 17.2 % (11.6-14.6); RBC Distribution Width SD 62.4 fl (35.1-43.9); Red Blood Count 3.39 M/mm3 (4.6-6.2); White Blood Count 4.7 K/mm3 (4.4-11.0)
[2020-10-06 19:23] LABS: Partial Thromboplast Time 57.4 Seconds (24.1-36.2); Prothrombin Time (Protime)PT. 47.3 SECONDS (11.7-14.9)
[2020-10-06 19:37] LABS: International Normalized Ratio 5.1
[2020-10-06 19:43] LABS: Anion Gap 6 (5-15); BUN 29 mg/dL (7-18); BUN/Creat Ratio 3.5 RATIO (10-20); Calcium,Total 8.4 mg/dL (8.5-10.1); Chloride 99 mmol/L (98-107); Creatinine, Serum 8.39 mg/dL (0.70-1.30); EST Glomerular Filtration Rate 8 mL/min (>60); Est Glom Filt Rate - Afr Amer 9 mL/min (>60); Estimated Creatinine Clearance 12.33 ml/min; Glucose 89 mg/dL (74-106); Potassium 3.8 mmol/L (3.5-5.1); Sodium Level 139 mmol/L (136-145)
--- NOTE | 2020-10-06 19:57 | ED.VISSUMM ---
- ER Visit Summary Date of Service: 10/06/20 Chief Complaint: Left central retinal artery occlusion History of Present Illness: The patient is a 40 M who was referred to the ED from ophthalmology for stroke evaluation. Patient was last known well yesterday at 7 PM. He woke up at 10:30 PM yesterday with decreased vision in the left eye. He denied any other associated symptoms. He saw ophthalmology today and was referred for a stroke evaluation. Ophthalmology noted a central retinal artery occlusion. Patient thinks he may have had this before. Denies any history of stroke. He does take Coumadin for atrial fibrillation. He has end-stage renal disease and is on dialysis Friday, Friday, and Friday. He had a history of COVID-19. Physical Examination: Afebrile and vital signs unremarkable. NIH stroke scale is 0. Heart regular. Lungs clear. Abdomen soft. Test Results: EKG showed sinus rhythm at a rate of 91 with a QTC of 489. Hemoglobin 10.1. BUN 29, creatinine 8.39. INR 5.1. PTT 57.4. Troponin normal. Emergency Department Course and Treatment: Patient did not meet criteria for a stroke team. NIH was 0. He is on anticoagulation and not a candidate for TPA. Stroke evaluation was pursued. CT showed nothing acute. Chest x-ray interpreted by the radiologist and me showed nothing acute. Labs reflect his chronic disease. His INR however was supratherapeutic at 5.1. Will need to omit the next dose. There is no active bleeding. Hospitalist was contacted for inpatient stroke evaluation. Treatment Plan: As above Disposition: PCU observation Impression: Central retinal artery occlusion, end-stage renal disease, supratherapeutic INR This note was generated with [employer] dictation software. It may contain incorrect words, spelling, and punctuation that were not noted in review of the chart prior to signing ED Disposition - Plan for ED Patient: Referrals: Pawel Banda MD [Primary Care Provider] -
--- NOTE | 2020-10-06 20:15 | HP.PCM_ITS ---
Problem List (1) Blind left eye Status: Acute (2) Atrial fibrillation with RVR Status: Chronic (3) ESRD on hemodialysis Status: Chronic (4) PAF (paroxysmal atrial fibrillation) Status: Chronic (5) Morbidly obese Status: Chronic (6) 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 due to renal insufficiency Status: Chronic (7) Sleep apnea Status: Chronic Qualifiers: Sleep apnea type: unspecified type Qualified Code(s): G47.30 - Sleep apnea, unspecified History of Present Illness Date of Admission: 10/06/20 Chief Complaint: Left eye blindness - 1 day The patient is a 40 year old M with multiple comorbidities including ESRD on hemodialysis (Friday?Friday?Friday), hypertension, YEIMY, chronic atrial fibrillation on Coumadin who comes in with complaints of left eye visual loss that started on 10/05/20 at 10:30am. Patient could not see well out of the left eye. He went to see an certified master safecracker the next day. He cannot tell the name of the certified master safecracker. He was then diagnosed with central retinal artery occlusion. Patient was then sent to the emergency department. Patient had a similar episode of left eye blindness that happened in 2005. At that time he was told that he had destroyed the blood vessels in his eye from uncontrolled hypertension. This was about the same time he was put on dialysis. He had dialysis done today and had only 2-hour session. At time of being seen, he complains of feeling anxious, denied any headache or dizziness or palpitations. He denied any tingling or numbness in any of his extremities. Denied any extremity weakness. Vitals in the ED stable. He was 98% on room air. His admitting blood work showed chronic anemia of CKD, INR elevated at 5.1, sodium 139, potassium 3.8, chloride 99, bicarbonate 34, BUN 29, creatinine 8.39, troponin is negative. CT scan of the head was unremarkable. Chest ray showed no acute cardiopulmonary process. Past Medical History Past Medical History (Chronic Problems): Chronic Problems (Last Reviewed 07/31/20 @ 13:43 by Misa Dominguez) Atrial fibrillation with RVR (Chronic) COVID-19 (Chronic) ESRD on hemodialysis (Chronic) PAF (paroxysmal atrial fibrillation) (Chronic) Dialysis patient (Chronic) Anemia of chronic disorder (Chronic) Hypertension (Chronic) ESRD (end stage renal disease) (Chronic) Due to hypertension, On hemodialysis, TTS, followed by Dr. Goncalves Morbidly obese (Chronic) Sleep apnea (Chronic) 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 due to renal insufficiency (Chronic) Hematuria (Chronic) Pelvic mass (Chronic) Chronic pelvic pain in male (Chronic) Chronic kidney disease-mineral and bone disorder (Chronic) Mitral valve stenosis (Chronic) Sleep apnea (Chronic) Hearing loss (Chronic) in both ears Medical History: Medical History (Last Reviewed 07/31/20 @ 13:43 by Misa Dominguez) Mitral valve stenosis (Chronic) I05.0 Sleep apnea (Chronic) G47.30 Hearing loss (Chronic) H91.90 in both ears Afib I48.91 ESRD (end stage renal disease) N18.6 Anemia of chronic disease D63.8 HTN (hypertension) I10 History of blood clots (Inactive) Z86.718 fistula developed a clot and had to be surgically removed Allergies No Known Allergies Allergy (Verified 10/06/20 17:10) Home Medications: Ambulatory Orders Medication Instructions Recorded Ferric Citrate [Auryxia] 630 mg PO TIDCM 02/05/19 amiodarone 400 mg tablet 400 mg PO BID 09/25/20 metoprolol tartrate 25 mg tablet 25 mg PO TID 09/25/20 Warfarin [Coumadin ([facility])] 5 mg PO DAILY 10/06/20 Surgical History: Surgical History (Last Reviewed 07/31/20 @ 13:43 by Misa Dominguez) history of cather replacement Left Groin 04/21/19 Surgical History: herniorrhaphy, - - Herniorrhaphy, aVF x2, catheter placements, right upper extremity aneurysm removal. Psychiatric History: No pertinent psych hx Lives: Spouse/ Significant Other, With Family Smoking Status: Never smoker Tobacco Use: Non-smoker Alcohol: None Drugs: None - *Family History Paternal Family History: Family History (Last Reviewed 07/31/20 @ 13:43 by Misa Dominguez) Other Adopted History Items: - - Patient was adopted and does not know his maternal or paternal family history. Maternal Family History: Family History (Last Reviewed 07/31/20 @ 13:43 by Misa Dominguez) Other Adopted History Items: - - Patient was adopted and does not know his maternal or paternal family history. Review of Systems Constitutional: Denies: Anorexia, Chills, Fever, Malaise, Weakness, Weight Change, Fatigue Eyes: Denies: Blurred vision, Cataracts, Conjunctivae Inflammation HEENT: Denies: Difficulty Hearing, Difficulty Swallowing, Head Aches, Hearing Changes, Sinus Congestion, Sinus Drainage Cardiovascular: Denies: Chest Pain, Claudication, Orthopnea, Palpitations Respiratory: Denies: Cough, Hemoptysis, Shortness of breath at rest, Shortness of breath upon exertion, Sputum production Gastrointestinal: Denies: Abdominal Pain, Constipation, Hematemesis, Nausea, Vomiting Genitourinary: Denies: Dysuria, Incontinence Musculoskeletal: Denies: Joint Pain, Joint stiffness, Joint swelling, Joint Tenderness Skin: Denies: Pruritis, Rash, Wounds Neurological: Reports: Blurred vision. Denies: Focal weakness, Headaches, Incoordination, Numbness, Tingling, Tremor, Seizures Psychiatric: Denies: Anxiety, Depression, Homicidal Ideations, Suicidal Ideations Hematologic/ Lymphatic: Denies: Easy Bruising, Easy Bleeding VTE Information - Inpt Only VTE Present on Admission: No VTE Pharm Prophylaxis ordered?: Yes - Physical Exam Vitals/I&O's: Vital Signs Temp Pulse Resp BP Pulse Ox 98.0 F 84 17 107/60 100 10/06/20 17:10 10/06/20 19:00 10/06/20 19:00 10/06/20 19:00 10/06/20 19:00 Oxygen Delivery Method Room Air Weight: 137 kg Body Mass Index (BMI) 43.3 Finger Stick Blood Glucose 80 General: Alert, Oriented x3, Cooperative, No apparent distress HEENT: Atraumatic, PERRLA, EOMI, Normocephalic Oral: Moist Mucosa Neck: Supple Lungs: Clear to auscultation, Normal air movement Cardiovascular: Regular rate, Regular Rhythm, Normal S1, Normal S2, No murmurs Abdomen: Bowel Sounds Present, Soft, Non Tender, Non-Distended, No Hepato- splenomegaly Extremities: No edema Skin: No rashes Musculoskeletal: No Tenderness to Palpation of Joints or Extremities Lymphatic: No Cervical, Supraclavicular, or Inguinal Adenopathy Neurological: - - Patient had left partial hemianopsia, unable to see well out of the left eye, cranial nerves otherwise intact, 5/5 in all extremities, normal tone, no loss of sensation. Psych/Mental Status: Normal Affect, Appropriate Microbiology Past 72 Hours 10/06/20 17:42 Mucosa - Nose SARS-CoV-2 Antigen (Rapid) - Final Laboratory Results 10/06/20 17:29: POC Glucose 80 10/06/20 18:57: WBC 4.7, RBC 3.39 L, Hgb 10.1 L, Hct 33.2 L, MCV 97.9 H, MCH 29.8, MCHC 30.4 L, RDW Std Deviation 62.4 H, RDW Coeff of Lance 17.2 H, Plt Count 179, MPV 10.2, Immature Gran % (Auto) 0.400, Neut % (Auto) 62.6, Lymph % (Auto) 16.5 L, Fergus % (Auto) 14.8 H, Eos % (Auto) 5.1 H, Baso % (Auto) 0.6, Absolute Neuts (auto) 3.0, Absolute Lymphs (auto) 0.78 L, Nucleated RBC % 0 10/06/20 18:57: PT 47.3 H, INR 5.1 H*, APTT 57.4 H 10/06/20 18:57: Sodium 139, Potassium 3.8, Chloride 99, Carbon Dioxide 34.0 H, Anion Gap 6, BUN 29 H, Creatinine 8.39 H*, Estim Creat Clear Calc 12.33, Est GFR (MDRD) Af Amer 9 L, Est GFR (MDRD) Non-Af 8 L, BUN/Creatinine Ratio 3.5 L, Glucose 89, Calcium 8.4 L, Troponin I < 0.015 Current Medications Labetalol HCl (Labetalol (Prefilled) 20 Mg/4 Ml) 20 mg IV X1 PRN PRN Reason: BLOOD PRESSURE Assessment/Plan All Active Problems (Last Reviewed 07/31/20 @ 13:43 by Misa Dominguez) Blind left eye (Acute) Chest pain (Acute) Expressive aphasia (Acute) 1. Acute central retinal artery occlusion, noted in the outpatient laboratory multiple risk factors Will initiate stroke work-up; MRI, 2D echo, lipid profile, carotid ultrasound Would not do CTA of the head and neck or MRA with contrast because patient had ESRD Consider telemetry neurology consult when MRI is completed Ophthalmology consult, PT/OT/ST to evaluate and treat Aspirin 81 mg p.o. daily, atorvastatin 2. ESRD on hemodialysis, Friday?Friday?Friday, patient had a short dialysis treatment on Friday No signs of volume overload or electrolyte imbalances Nephrology consulted 3. Supratherapeutic INR, INR is 5.1, hold Coumadin, repeat INR in a.m. 4. Hypertension/chronic atrial fibrillation, controlled, Continue on metoprolol, amiodarone 5. DVT prophylaxis?INR is supratherapeutic; repeat INR in a.m. Inpatient E&M: 62374 Init Hosp L3
--- NOTE | 2020-10-06 21:02 | CDU_ITS ---
Reason For Study: CVA Rt. Velocities/BP Lt. Velocities/BP Prox CCA 114/13 cm/sec. Prox CCA 207/29 cm/sec. Mid CCA 161/13 cm/sec. Mid CCA 187/16 cm/sec. Dist CCA 98/16 cm/sec. Dist CCA 158/9 cm/sec. Prox ICA 166/153 cm/sec. Prox ICA 216/23 cm/sec. Mid ICA 124/15 cm/sec. Mid ICA 164/32 cm/sec. Dist ICA 116/23 cm/sec. Dist ICA 112/6 cm/sec. Rt. ICA/CCA = 1.2. Lt. ICA/CCA = 1.2. Prox ECA 113/14 cm/sec. Prox ECA 190/0 cm/sec. Rt. Vert. 93/18 cm/sec. Lt. Vert. 57/11 cm/sec. Right Extracranial There is homogeneous, smooth atherosclerotic plaque noted in the right common carotid artery. There is heterogeneous, irregular atherosclerotic plaque noted in the right internal carotid artery. There is heterogeneous, smooth atherosclerotic plaque noted in the right external carotid artery. Antegrade flow is noted in the right vertebral artery. Left Extracranial There is heterogeneous, smooth atherosclerotic plaque noted in the left common carotid artery. There is no significant atherosclerotic plaque noted in the left internal carotid artery. There is no significant atherosclerotic plaque noted in the left external carotid artery. Antegrade flow is noted in the left vertebral artery. Procedure Carotid Duplex [id number]. Exam performed portable in patient room. Interpretation Summary Calcific plaque with shadowing at the proximal right internal carotid artery with 50 to 69% stenosis. Less than 50% stenosis right external carotid artery Intimal thickening left proximal internal carotid artery however with flow velocity located throughout the left common carotid and internal carotid artery of undetermined etiology. 50 to 69% stenosis left proximal internal carotid artery Less than 50% stenosis left external carotid artery Patent and antegrade vertebrals bilaterally Ordering Physician: Elisha Hernandez Referring Physician: Pawel Banda Performed By: Berta Flores, STUART, RVT
--- NOTE | 2020-10-06 21:02 | ECHOCS_ITS ---
Reason For Study: TIA/CVA Procedure This was a 2D Doppler, Color Flow transthoracic echocardiogram. Technically difficult study due to patients body habitus, patient unable to hold still for testing. Contrast injection performed. Bubble study attempted 2x and was inconclusive. Exam performed portable in patient room. Left Ventricle Normal left ventricle. The estimated ejection fraction is 65 %. Left ventricular systolic function is hyperdynamic. Stage 2 diastolic dysfunction. No regional wall motion abnormalities noted. Right Ventricle Normal right ventricle. Normal systolic function. Atria The left atrium is moderately enlarged. Normal right atrium. Mitral Valve Moderate focal mitral valve thickening. Severe mitral annular calcification. Mild mitral valve stenosis. Moderate (2+) mitral valve insufficiency. Tricuspid Valve Moderate (2+) tricuspid valve insufficiency. Mild pulmonary hypertension. Pulmonic Valve The pulmonic valve is not well visualized. Great Vessels not seen. Pericardium/Pleural No pericardial effusion. Medication Diluted definity 3ml given slow IV push to enhance endocardial definition. Performed a rapid injection of agitated mix of 9 cc saline and 1cc air to assess for atrial septal defect. MMode/2D Measurements & Calculations LVIDd: 4.6 cm IVSd: 1.1 cm LA dimension: 4.7 cm LVIDs: 2.3 cm LVPWd: 0.81 cm FS: 50.4 % LAV(MOD-bp): 75.8 ml LA A4 area: 21.4 cm2 RA A4 area: 12.0 cm2 LAV(MOD-bp) Indexed: 30.8 ml/m2 LAV(MOD-sp2): 82.5 ml LAV(MOD-sp4): 66.8 ml Time Measurements MV dec time: 0.44 sec Doppler Measurements & Calculations MV E max gaurang: 199.0 cm/sec Lat Peak E' Gaurang: 9.7 cm/sec Med Peak E' Gaurang: 6.8 cm/sec MV A max gaurang: 162.9 cm/sec E/E' lat: 20.6 E/E' med: 29.4 MV E/A: 1.2 MV V2 max: 281.2 cm/sec MV P1/2t max gaurang: 283.1 cm/sec Ao V2 max: 111.7 cm/sec MV max P.6 mmHg MV P1/2t: 121.2 msec Ao max P.0 mmHg MV V2 mean: 188.2 cm/sec MV dec slope: 684.0 cm/sec2 MV mean P.7 mmHg MVA(P1/2t): 1.8 cm2 MV V2 VTI: 90.8 cm AI max gaurang: 228.2 cm/sec LV V1 max: 113.1 cm/sec MR max gaurang: 404.5 cm/sec AI max P.8 mmHg LV V1 max P.1 mmHg MR max P.5 mmHg AI dec slope: 205.2 cm/sec2 AI P1/2t: 325.7 msec PA V2 max: 89.6 cm/sec TR max gaurang: 327.0 cm/sec TR max P.8 mmHg Interpretation Summary Stage 2 diastolic dysfunction. Left ventricular systolic function is hyperdynamic. The estimated ejection fraction is 65 %. Moderate focal mitral valve thickening. Severe mitral annular calcification. Mild mitral valve stenosis. Moderate (2+) mitral valve insufficiency. The left atrium is moderately enlarged. Moderate (2+) tricuspid valve insufficiency. Mild pulmonary hypertension. Ordering Physician: Elisha Hernandez Referring Physician: Elisha Hernandez Performed By: Wade Choi RCS
--- NOTE | 2020-10-06 21:33 | MRI_ITS ---
STUDY: MRI BRAIN WITHOUT CONTRAST REASON FOR EXAM: Male, 40 years old. cva TECHNIQUE: Standardized multiplanar fat and water weighted pulse sequences were obtained. COMPARISON: 04/06/2020, CT 10/06/2020 FINDINGS: There is mild cerebral atrophy with widening of the extra-axial spaces and ventricular dilatation. There are a limited number of small white matter hyperintensities, distributed throughout the deep white matter tracts of the cerebral hemispheres, consistent with mild chronic white matter ischemic changes. There is no evidence for recent intracranial ischemia or other cause of cytotoxic edema on diffusion weighted imaging (DWI). Normal T2* images of the brain without demonstrated susceptibility artifact. There is no demonstrated hemosiderin stain. Normal bilateral basal ganglia. Normal thalami. There is no extra-axial fluid accumulation. Normal flow voids within the major intracranial circulation suggesting patency by spin echo criteria. There is enlargement of the sella turcica with increased CSF within the sella and flattening of the pituitary gland consistent with an empty sellar syndrome. Normal infundibular stalk, hypothalamus, and optic chiasm. Normal tectal plate and pineal gland. Normal midbrain, nereida and medulla. Normal cerebellum. Normal basal cisterns. Normal bilateral temporal bones. Normal bilateral internal auditory canals. No demonstrated orbital abnormality, within the constraints of a routine brain study. Normal visualized paranasal sinuses. Normal calvarium and skull base. Normal visualized soft tissue structures. Normal visualized upper cervical spine. MRI/Brain without Contrast IMPRESSION: Involutional changes of the brain, as described above. No acute infarct. Electronically Signed: Don Menon MD at 12:15 EST Tel , Service support ,
[2020-10-06] MEDS: Metoprolol Tartrate 25 MG Tablet PO (22:59)
[2020-10-06] MEDS: Atorvastatin Calcium 80 MG Tablet PO (22:59)
[2020-10-06] MEDS: Amiodarone 200 MG Tablet 400 MG PO (22:59)
--- NOTE | 2020-10-06 23:20 | PCS.PANDOC ---
PANDEMIC DOCUMENTATION INITIATED: Date: 10/06/20 Time: 21:00
[2020-10-07] VITALS (16 sets, daily range): BP systolic 84–131; BP diastolic 37–62; PULSE 70–84; RESP 18; TEMP 36.3–37.1; O2SAT 97–100; BMI 42.0
[2020-10-07] MEDS: Ibuprofen 400 MG Tablet PO (00:15)
--- NOTE | 2020-10-07 00:25 | CPS ---
O2 decreased to 2 lpm
[2020-10-07] MEDS: Aspirin 81 MG TAB.CHEW PO (06:10)
--- NOTE | 2020-10-07 06:56 | NURSING ---
Spoke with Dr. Rizvi of [facility] at this time regarding pt.'s office visit on 10/06/20. Dr. Rizvi reports there is an artery occlusion with no clot visualized in office, no infection, recommends Brain MRI (scheduled for today). Dr. Rizvi reports d/t pt's fragile vasculature, when blood pressure is low that is when pt. is more likely to experience vision loss. No further recommendations made at this to this RN.
[2020-10-07 09:14] LABS: Absolute Lymphocyte Count 0.73 X10^3/uL (0.83-4.51); Absolute Neutrophil Count 2.8 X10^3/uL (2.0-7.7); Basophil# 0.03 X10^3/uL; Basophil% 0.7 % (0-1); Eosinophils% 4.8 % (0-5); Hematocrit 32.7 % (40-54); Hemoglobin 9.9 g/dL (13.0-16.5); Lymphocyte # 0.73 X10^3/ul (4.0); Lymphocyte % 17.5 % (19-41); Mean Corp Hgb Conc 30.3 g/dL (32-36); Mean Corpuscular Hgb 29.6 pg (27.0-32.0); Mean Corpuscular Volume 97.9 fL (80-94); Mean Platelet Vol. 10.2 fl (6.2-12.0); Monocyte# 0.37 X10^3/uL; Monocyte% 8.9 % (0-10); NRBC Flagged by Analyzer 0 % (0-5); Neutrophil % 67.4 % (47-70); Platelet Count 163 K/mm3 (150-450); RBC Distribution Width CV 17.2 % (11.6-14.6); RBC Distribution Width SD 62.6 fl (35.1-43.9); Red Blood Count 3.34 M/mm3 (4.6-6.2); White Blood Count 4.2 K/mm3 (4.4-11.0)
[2020-10-07 09:24] LABS: Prothrombin Time (Protime)PT. 46.9 SECONDS (11.7-14.9)
[2020-10-07 09:26] LABS: International Normalized Ratio 5.1
[2020-10-07] MEDS: Amiodarone 200 MG Tablet 400 MG PO ×2 (09:32→22:11)
[2020-10-07] MEDS: Famotidine 20 MG Tablet PO (09:32)
[2020-10-07 09:44] LABS: ALB/GLOB Ratio 0.7 RATIO (0.9-2.4); AST(SGOT) 15 U/L (15-37); Alanine Aminotransfer ALT/SGPT 18 U/L (16-61); Albumin, Serum 3.1 g/dL (3.2-5.0); Alkaline Phosphatase 59 U/L (45-117); Anion Gap 9 (5-15); BUN 37 mg/dL (7-18); BUN/Creat Ratio 3.8 RATIO (10-20); Calcium,Total 8.1 mg/dL (8.5-10.1); Chloride 97 mmol/L (98-107); Cholesterol 151 mg/dL (200); Creatinine, Serum 9.82 mg/dL (0.70-1.30); EST Glomerular Filtration Rate 6 mL/min (>60); Est Glom Filt Rate - Afr Amer 8 mL/min (>60); Estimated Creatinine Clearance 10.53 ml/min; Globulin 4.5 g/dL (2.2-4.2); Glucose 79 mg/dL (74-106); High Density Lipoprotein 48 mg/dL; Protein, Total 7.6 g/dL (6.4-8.2); Sodium Level 137 mmol/L (136-145); Triglycerides 72 mg/dL; Very Low Density Lipoprotein 14 mg/dL (5-40)
[2020-10-07] MEDS: SEVELAMER CARBONATE 800 MG TABLET PO (12:13)
[2020-10-07] MEDS: Mag Hydrox/Al Hydrox/Simeth 30 ML UDC PO ×2 (12:22→19:53)
--- NOTE | 2020-10-07 12:25 | CM.UR ---
Attempted to meet face to face with patient however he was out of his room. Rigoberto Dan RN, [facility].
--- NOTE | 2020-10-07 12:51 | CASEMGMT ---
SW reviewed chart, it appears that pt did not have a stroke, so no PHQ-9 completed. LAVELL Chua
--- NOTE | 2020-10-07 13:14 | PCM.PN.HOSP ---
Patient Problems: Active and Suspected Problems (Last Reviewed 07/31/20 @ 13:43 by Misa Dominguez) Blind left eye (Acute) Subjective: Patient seen and examined. He was admitted with a complaint of loss of vision in his left eye. This happened acutely and he says that his vision got slightly better but still he could not see very well. He went to see an eye doctor yesterday and he says he was told he had central retinal artery occlusion and was told to come to the ED as he might be having a stroke. Patient seen and examined. He still does complain of blurred vision in his left eye. He says is not as bad as it was yesterday but it still present and he is not able to see very well. Review of symptoms otherwise negative. He has remained hemodynamically stable. Vitals/I&O's: Vital Signs Temp Pulse Resp BP Pulse Ox 98.3 F 77 18 115/61 100 10/07/20 09:25 10/07/20 09:25 10/07/20 09:25 10/07/20 09:25 10/07/20 09:25 Oxygen Flow Rate (L/min) 2 Oxygen Delivery Method Nasal Cannula Weight: 295 lb 10.238 oz Body Mass Index (BMI) 42.0 Finger Stick Blood Glucose 80 Intake and Output for Last 24 Hours 10/05/20 10/06/20 10/07/20 23:59 23:59 23:59 Intake Total 480 / 480 480 / 480 Balance 480 / 480 480 / 480 General: Alert, Oriented x3, Cooperative, No apparent distress HEENT: Atraumatic, PERRLA, EOMI, Normocephalic, - - decreased vision in his left eye; cannot count number of fingers, and cannot track finger with left eye. Oral: Dry Mucosa Neck: Supple, No JVD, Negative Carotid Bruits Lungs: Clear to auscultation, Normal air movement, No rhonchi, No wheeze Cardiovascular: Regular rate, Regular Rhythm, Normal S1, Normal S2, No murmurs Abdomen: Bowel Sounds Present, Soft, Non Tender Extremities: No clubbing, No cyanosis, No edema, Capillary Refill Less than 3 Seconds, - - AV fistula in LUE with good thrill Skin: No rashes, No breakdown Musculoskeletal: No Tenderness to Palpation of Joints or Extremities Lymphatic: No Cervical, Supraclavicular, or Inguinal Adenopathy Neurological: - - markedly diminished vision in left eye Psych/Mental Status: Normal Affect, Appropriate, Alert and oriented to time, place, person, mood and affect Microbiology Past 72 Hours 10/06/20 17:42 Mucosa - Nose SARS-CoV-2 Antigen (Rapid) - Final Laboratory Results 10/06/20 17:29: POC Glucose 80 10/06/20 18:57: WBC 4.7, RBC 3.39 L, Hgb 10.1 L, Hct 33.2 L, MCV 97.9 H, MCH 29.8, MCHC 30.4 L, RDW Std Deviation 62.4 H, RDW Coeff of Lance 17.2 H, Plt Count 179, MPV 10.2, Immature Gran % (Auto) 0.400, Neut % (Auto) 62.6, Lymph % (Auto) 16.5 L, [place] % (Auto) 14.8 H, Eos % (Auto) 5.1 H, Baso % (Auto) 0.6, Absolute Neuts (auto) 3.0, Absolute Lymphs (auto) 0.78 L, Nucleated RBC % 0 10/06/20 18:57: PT 47.3 H, INR 5.1 H*, APTT 57.4 H 10/06/20 18:57: Sodium 139, Potassium 3.8, Chloride 99, Carbon Dioxide 34.0 H, Anion Gap 6, BUN 29 H, Creatinine 8.39 H*, Estim Creat Clear Calc 12.33, Est GFR (MDRD) Af Amer 9 L, Est GFR (MDRD) Non-Af 8 L, BUN/Creatinine Ratio 3.5 L, Glucose 89, Calcium 8.4 L, Troponin I < 0.015 10/07/20 09:00: WBC 4.2 L, RBC 3.34 L, Hgb 9.9 L, Hct 32.7 L, MCV 97.9 H, MCH 29.6, MCHC 30.3 L, RDW Std Deviation 62.6 H, RDW Coeff of Lance 17.2 H, Plt Count 163, MPV 10.2, Immature Gran % (Auto) 0.700, Neut % (Auto) 67.4, Lymph % (Auto) 17.5 L, [place] % (Auto) 8.9, Eos % (Auto) 4.8, Baso % (Auto) 0.7, Absolute Neuts (auto) 2.8, Absolute Lymphs (auto) 0.73 L, Nucleated RBC % 0 10/07/20 09:00: Sodium 137, Potassium 5.0, Chloride 97 L, Carbon Dioxide 31.0, Anion Gap 9, BUN 37 H, Creatinine 9.82 H*, Estim Creat Clear Calc 10.53, Est GFR (MDRD) Af Amer 8 L, Est GFR (MDRD) Non-Af 6 L, BUN/Creatinine Ratio 3.8 L, Glucose 79, Calcium 8.1 L, Total Bilirubin 0.50, AST 15, ALT 18, Alkaline Phosphatase 59, Total Protein 7.6, Albumin 3.1 L, Globulin 4.5 H, Albumin/Globulin Ratio 0.7 L, Triglycerides 72, Cholesterol 151, LDL Cholesterol 89, VLDL Cholesterol 14, HDL Cholesterol 48 10/07/20 09:00: PT 46.9 H, INR 5.1 H* Diagnostic Data Chest X-Ray 10/06/20 17:33 IMPRESSION: No acute cardiopulmonary disease or interval change. Electronically Signed: Enrico Foster DO at 18:58 EST Tel [phone], Service support , Brain CT 10/06/20 18:33 IMPRESSION: No acute intracranial or calvarial abnormality. There is no major interval change. N.B. : The above information has been verbally conveyed by Enrico Foster DO to Maxi Munson MD, on 10/06/2020 18:47:33 (ET). Electronically Signed: Enrico Foster DO at 18:48 EST Tel [phone], Service support , ADDENDUM: 10/06/20 1855 IMPRESSION: No acute intracranial or calvarial abnormality. There is no major interval change. N.B. : The above information has been verbally conveyed by Enrico Foster DO to Maxi Munson MD, on 10/06/2020 18:47:33 (ET). Electronically Signed: Enrico Foster DO at 18:48 EST Tel [phone], Service support , Brain MRI 10/06/20 21:33 IMPRESSION: Involutional changes of the brain, as described above. No acute infarct. Electronically Signed: Don Menon MD at 12:15 EST Tel , Service support , Current Medications Acetaminophen (Acetaminophen 325 Mg Tablet) 650 mg PO Q6H PRN PRN PRN Reason: Pain Score 1-10/Temp > 100.7 F Al Hydroxide/Mg Hydroxide (Mag Hydrox/Al Hydrox/Simeth 30 Ml Udc) 30 ml PO Q6H PRN PRN PRN Reason: Gastric Burning Last Admin: 10/07/20 12:22 Dose: 30 ml Documented by: Albuterol Sulfate (Albuterol 2.5 Mg/3 Ml Vial.Neb.) 2.5 mg INHALATION Q2H PRN PRN PRN Reason: SOB/Wheezing Amiodarone HCl (Amiodarone 200 Mg Tablet) 400 mg PO BID [facility] Last Admin: 10/07/20 09:32 Dose: 400 mg Documented by: Aspirin (Aspirin 81 Mg Tab.Chew) 81 mg PO DAILY@0800 [facility] Last Admin: 10/07/20 06:10 Dose: 81 mg Documented by: Atorvastatin Calcium (Atorvastatin Calcium 80 Mg Tablet) 80 mg PO QHS [facility] Last Admin: 10/06/20 22:59 Dose: 80 mg Documented by: Famotidine (Famotidine 20 Mg Tablet) 20 mg PO DAILY [facility] Last Admin: 10/07/20 09:32 Dose: 20 mg Documented by: Ferrous Sulfate ([facility] S[facility]ate 325 Mg Tablet) [facility] Hydralazine HCl (Hydralazine 20 Mg/Ml Vial) 5 mg IV Q30M PRN PRN Reason: to maintain BP goals Labetalol HCl (Labetalol (Prefilled) 20 Mg/4 Ml) 10 - 20 mg IV Q10M PRN PRN PRN Reason: to Maintain BP Goals Metoprolol Tartrate (Metoprolol Tartrate 25 Mg Tablet) 25 mg PO TID [facility] Last Admin: 10/07/20 06:02 Dose: Not Given Documented by: Nitroglycerin (Nitroglycerin (Inpatient Use) 0.4 Mg Tab.Subl) 0.4 mg SUBLINGUAL Q5M PRN PRN Reason: CARDIAC/CHEST PAIN Ondansetron HCl (Ondansetron 4 Mg/2 Ml Vial) 4 mg IV Q8H PRN PRN PRN Reason: NAUSEA/VOMITING Sevelamer Carbonate (Sevelamer Carbonate 800 Mg Tablet) 800 mg PO TIDCM [facility] Last Admin: 10/07/20 12:13 Dose: 800 mg Documented by: Sodium Chloride (0.9% Saline Lock 10 Ml Syringe) 10 - 40 ml IV UD PRN PRN Reason: SALINE FLUSH STROKE Vital Signs/Narrative: Vital Signs Temp Pulse Resp BP Pulse Ox 10/07/20 09:25 98.3 F 77 18 115/61 100 10/07/20 09:21 98.3 F 77 18 115/61 100 Medical Necessity - Tobacco Use Smoking Status: Former smoker Tobacco Use: Non-smoker Assessment/Plan All Active Problems (Last Reviewed 07/31/20 @ 13:43 by Misa Dominguez) Blind left eye (Acute) Chest pain (Acute) Expressive aphasia (Acute) #Loss of vision in left eye Per patient, he was diagnosed with acute central retinal artery occlusion by his american sign language teacher on outpatient basis. MRI of the brain done shows chronic involutional changes with no evidence of a stroke. Carotid ultrasound ordered. Lipid panel was essentially normal. Aspirin 81 mg daily, atorvastatin 40 mg nightly. I did discuss with Dr. Alissa Howard, american sign language teacher on-call. She stated that patient should get an echo and carotid ultrasound as ordered and would need to be anticoagulated. Patient already anticoagulated with supratherapeutic INR. She had management for central retinal artery occlusion would be anticoagulation and risk factor modification. Patient follow-up with ophthalmology on outpatient basis. Order 2D echo. PT OT on board. #ESRD on hemodialysis Dialysis Wednesdays. Nephrology consulted. #Supratherapeutic INR: INR is still 5.1 today. No evidence of bleeding. Will monitor. #Chronic A. fib: On metoprolol and amiodarone. Coumadin on hold on account of supratherapeutic INR #Hypertension: On metoprolol DVT prophylaxis: Not indicated as INR supratherapeutic. [facility] E&M: [id number]
--- NOTE | 2020-10-07 16:10 | PCM.CONS.R ---
Problem List (1) ESRD on hemodialysis Status: Chronic Consultation - Renal 10/07/20 PCP/ Referring MD: Requesting physician: [] Primary care physician: Dr. Pawel Banda MD Reason for Consultation:: ESRD - History of Present Illness History of Present Illness: The patient is a 40 year old M who is admitted to the hospital with unilateral vision loss. Nephrology consulted for ESRD. ESRD on hemodialysis Friday, Friday, Friday schedule. Last dialysis was yesterday. He is signed off early to go to an ophthalmology appointment. Diagnosed with central retinal artery obstruction. Currently having a stroke work-up. Seen on dialysis today. - Allergies Allergies: Allergies No Known Allergies Allergy (Verified 10/06/20 17:10) - Current Medications Current Medications: Current Medications Acetaminophen (Acetaminophen 325 Mg Tablet) 650 mg PO Q6H PRN PRN PRN Reason: Pain Score 1-10/Temp > 100.7 F Al Hydroxide/Mg Hydroxide (Mag Hydrox/Al Hydrox/Simeth 30 Ml Udc) 30 ml PO Q6H PRN PRN PRN Reason: Gastric Burning Last Admin: 10/07/20 12:22 Dose: 30 ml Documented by: Albuterol Sulfate (Albuterol 2.5 Mg/3 Ml Vial.Neb.) 2.5 mg INHALATION Q2H PRN PRN PRN Reason: SOB/Wheezing Amiodarone HCl (Amiodarone 200 Mg Tablet) 400 mg PO BID [facility] Last Admin: 10/07/20 09:32 Dose: 400 mg Documented by: Aspirin (Aspirin 81 Mg Tab.Chew) 81 mg PO DAILY@0800 [facility] Last Admin: 10/07/20 06:10 Dose: 81 mg Documented by: Atorvastatin Calcium (Atorvastatin Calcium 80 Mg Tablet) 80 mg PO QHS [facility] Last Admin: 10/06/20 22:59 Dose: 80 mg Documented by: Famotidine (Famotidine 20 Mg Tablet) 20 mg PO DAILY [facility] Last Admin: 10/07/20 09:32 Dose: 20 mg Documented by: Ferrous Sulfate ([facility]errous Sulfate 325 Mg Tablet) [facility] [address] [facility] Hydralazine HCl (Hydralazine 20 Mg/Ml Vial) 5 mg IV Q30M PRN PRN Reason: to maintain BP goals Labetalol HCl (Labetalol (Prefilled) 20 Mg/4 Ml) 10 - 20 mg IV Q10M PRN PRN PRN Reason: to Maintain BP Goals Metoprolol Tartrate (Metoprolol Tartrate 25 Mg Tablet) 25 mg PO TID [facility] Last Admin: 10/07/20 14:40 Dose: Not Given Documented by: Nitroglycerin (Nitroglycerin (Inpatient Use) 0.4 Mg Tab.Subl) 0.4 mg SUBLINGUAL Q5M PRN PRN Reason: CARDIAC/CHEST PAIN Ondansetron HCl (Ondansetron 4 Mg/2 Ml Vial) 4 mg IV Q8H PRN PRN PRN Reason: NAUSEA/VOMITING Sevelamer Carbonate (Sevelamer Carbonate 800 Mg Tablet) 800 mg PO TIDCM [facility] Last Admin: 10/07/20 12:13 Dose: 800 mg Documented by: Sodium Chloride (0.9% Saline Lock 10 Ml Syringe) 10 - 40 ml IV UD PRN PRN Reason: SALINE FLUSH - Past Medical History Past Medical History (Chronic Problems): Chronic Problems (Last Reviewed 07/31/20 @ 13:43 by Misa Dominguez) Atrial fibrillation with RVR (Chronic) COVID-19 (Chronic) ESRD on hemodialysis (Chronic) PAF (paroxysmal atrial fibrillation) (Chronic) Dialysis patient (Chronic) Anemia of chronic disorder (Chronic) Hypertension (Chronic) ESRD (end stage renal disease) (Chronic) Due to hypertension, On hemodialysis, TTS, followed by Dr. 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 - Social History Smoking Status: Former smoker Alcohol: None Drugs: None - Family History Paternal Family History: Family History (Last Reviewed 07/31/20 @ 13:43 by Misa Dominguez) Other Adopted History Items: - - Patient was adopted and does not know his maternal or paternal family history. Maternal Family History: Family History (Last Reviewed 07/31/20 @ 13:43 by Misa Dominguez) Other Adopted History Items: - - Patient was adopted and does not know his maternal or paternal family history. Review of Systems Constitutional: Denies: Chills, Fever, Weight Change Eyes: Reports: Blurred vision, Vision Change HEENT: Denies: Head Aches, Sinus Congestion, Sinus Drainage Cardiovascular: Denies: Chest Pain, Palpitations Respiratory: Denies: Cough, Shortness of breath at rest, Sputum production Gastrointestinal: Denies: Abdominal Pain, Nausea, Vomiting Genitourinary: Denies: Dysuria Musculoskeletal: Denies: Joint Pain, Joint Tenderness Skin: Denies: Rash, Wounds Neurological: Denies: Numbness, Tingling, Focal weakness Psychiatric: Denies: Anxiety, Depression, Homicidal Ideations, Suicidal Ideations Hematologic/ Lymphatic: Denies: Easy Bruising, Easy Bleeding Patient Problems: Active and Suspected Problems (Last Reviewed 07/31/20 @ 13:43 by Misa Dominguez) Blind left eye (Acute) - Physical Exam Vitals/I&O's: Vital Signs Temp Pulse Resp BP Pulse Ox 98.3 F 77 18 115/61 100 10/07/20 09:25 10/07/20 09:25 10/07/20 09:25 10/07/20 09:25 10/07/20 09:25 Oxygen Flow Rate (L/min) 2 Oxygen Delivery Method Nasal Cannula Weight: 134.1 kg Body Mass Index (BMI) 42.0 Finger Stick Blood Glucose 80 Intake and Output for Last 24 Hours 10/05/20 10/06/20 10/07/20 23:59 23:59 23:59 Intake Total 480 / 480 960 / 960 Output Total 0 / 0 Balance 480 / 480 960 / 960 General: Alert, Oriented x3, Cooperative HEENT: Atraumatic, PERRLA, EOMI, Normocephalic Neck: Supple, No JVD, Negative Carotid Bruits Lungs: Clear to auscultation, Normal air movement Cardiovascular: Regular rate, No murmurs Abdomen: Bowel Sounds Present, Soft, Non Tender Extremities: No edema, Capillary Refill Less than 3 Seconds Skin: No rashes, No breakdown Musculoskeletal: No Tenderness to Palpation of Joints or Extremities Neurological: Cranial nerves II-XII grossly intact Psych/Mental Status: Normal Affect, Appropriate Microbiology Past 72 Hours 10/06/20 17:42 Mucosa - Nose SARS-CoV-2 Antigen (Rapid) - Final Laboratory Results 10/06/20 17:29: POC Glucose 80 10/06/20 18:57: WBC 4.7, RBC 3.39 L, Hgb 10.1 L, Hct 33.2 L, MCV 97.9 H, MCH 29.8, MCHC 30.4 L, RDW Std Deviation 62.4 H, RDW Coeff of Lance 17.2 H, Plt Count 179, MPV 10.2, Immature Gran % (Auto) 0.400, Neut % (Auto) 62.6, Lymph % (Auto) 16.5 L, [place] % (Auto) 14.8 H, Eos % (Auto) 5.1 H, Baso % (Auto) 0.6, Absolute Neuts (auto) 3.0, Absolute Lymphs (auto) 0.78 L, Nucleated RBC % 0 10/06/20 18:57: PT 47.3 H, INR 5.1 H*, APTT 57.4 H 10/06/20 18:57: Sodium 139, Potassium 3.8, Chloride 99, Carbon Dioxide 34.0 H, Anion Gap 6, BUN 29 H, Creatinine 8.39 H*, Estim Creat Clear Calc 12.33, Est GFR (MDRD) Af Amer 9 L, Est GFR (MDRD) Non-Af 8 L, BUN/Creatinine Ratio 3.5 L, Glucose 89, Calcium 8.4 L, Troponin I < 0.015 10/07/20 09:00: WBC 4.2 L, RBC 3.34 L, Hgb 9.9 L, Hct 32.7 L, MCV 97.9 H, MCH 29.6, MCHC 30.3 L, RDW Std Deviation 62.6 H, RDW Coeff of Lance 17.2 H, Plt Count 163, MPV 10.2, Immature Gran % (Auto) 0.700, Neut % (Auto) 67.4, Lymph % (Auto) 17.5 L, [place] % (Auto) 8.9, Eos % (Auto) 4.8, Baso % (Auto) 0.7, Absolute Neuts (auto) 2.8, Absolute Lymphs (auto) 0.73 L, Nucleated RBC % 0 10/07/20 09:00: Sodium 137, Potassium 5.0, Chloride 97 L, Carbon Dioxide 31.0, Anion Gap 9, BUN 37 H, Creatinine 9.82 H*, Estim Creat Clear Calc 10.53, Est GFR (MDRD) Af Amer 8 L, Est GFR (MDRD) Non-Af 6 L, BUN/Creatinine Ratio 3.8 L, Glucose 79, Calcium 8.1 L, Total Bilirubin 0.50, AST 15, ALT 18, Alkaline Phosphatase 59, Total Protein 7.6, Albumin 3.1 L, Globulin 4.5 H, Albumin/Globulin Ratio 0.7 L, Triglycerides 72, Cholesterol 151, LDL Cholesterol 89, VLDL Cholesterol 14, HDL Cholesterol 48 10/07/20 09:00: PT 46.9 H, INR 5.1 H* Current Medications Acetaminophen (Acetaminophen 325 Mg Tablet) 650 mg PO Q6H PRN PRN PRN Reason: Pain Score 1-10/Temp > 100.7 F Al Hydroxide/Mg Hydroxide (Mag Hydrox/Al Hydrox/Simeth 30 Ml Udc) 30 ml PO Q6H PRN PRN PRN Reason: Gastric Burning Last Admin: 10/07/20 12:22 Dose: 30 ml Documented by: Albuterol Sulfate (Albuterol 2.5 Mg/3 Ml Vial.Neb.) 2.5 mg INHALATION Q2H PRN PRN PRN Reason: SOB/Wheezing Amiodarone HCl (Amiodarone 200 Mg Tablet) 400 mg PO BID [facility] Last Admin: 10/07/20 09:32 Dose: 400 mg Documented by: Aspirin (Aspirin 81 Mg Tab.Chew) 81 mg PO DAILY@0800 [facility] Last Admin: 10/07/20 06:10 Dose: 81 mg Documented by: Atorvastatin Calcium (Atorvastatin Calcium 80 Mg Tablet) 80 mg PO QHS [facility] Last Admin: 10/06/20 22:59 Dose: 80 mg Documented by: Famotidine (Famotidine 20 Mg Tablet) 20 mg PO DAILY [facility] Last Admin: 10/07/20 09:32 Dose: 20 mg Documented by: Ferrous Sulfate (Ferrous Sulfate 325 Mg Tablet) [facility] Hydralazine HCl (Hydralazine 20 Mg/Ml Vial) 5 mg IV Q30M PRN PRN Reason: to maintain BP goals Labetalol HCl (Labetalol (Prefilled) 20 Mg/4 Ml) 10 - 20 mg IV Q10M PRN PRN PRN Reason: to Maintain BP Goals Metoprolol Tartrate (Metoprolol Tartrate 25 Mg Tablet) 25 mg PO TID [facility] Last Admin: 10/07/20 14:40 Dose: Not Given Documented by: Nitroglycerin (Nitroglycerin (Inpatient Use) 0.4 Mg Tab.Subl) 0.4 mg SUBLINGUAL Q5M PRN PRN Reason: CARDIAC/CHEST PAIN Ondansetron HCl (Ondansetron 4 Mg/2 Ml Vial) 4 mg IV Q8H PRN PRN PRN Reason: NAUSEA/VOMITING Sevelamer Carbonate (Sevelamer Carbonate 800 Mg Tablet) 800 mg PO TIDCM [facility] Last Admin: 10/07/20 12:13 Dose: 800 mg Documented by: Sodium Chloride (0.9% Saline Lock 10 Ml Syringe) 10 - 40 ml IV UD PRN PRN Reason: SALINE FLUSH Assessment/Plan All Active Problems (Last Reviewed 07/31/20 @ 13:43 by Misa Dominguez) Blind left eye (Acute) Chest pain (Acute) Expressive aphasia (Acute) ESRD. Dialysis today. Central retinal artery obstruction. Management as per primary service. Stroke work-up ongoing. Atrial fibrillation Hypotension He was recently admitted at [facility]. Blood pressure has been significantly low since then. Apparently his metoprolol was increased to 3 times a day. He is also on high-dose amiodarone. Keep twice a day. I will try to call his supervisor veneer on Friday to discuss about the dose.
--- NOTE | 2020-10-07 18:45 | DIALYSIS ---
Hemodialysis tx ended per pt request AMA with 15 minutes remaining. Pt hypotensive and symptomatic over last [address] Melendez notified after SB remained 95 after 300ml N/S bolus post dialysis. Fluid removed 1850ml during dialysis. Verbal report given to RACHEL Cooper post tx
[2020-10-07] MEDS: Atorvastatin Calcium 80 MG Tablet PO (22:11)
[2020-10-07] MEDS: Dicyclomine 10 MG Capsule 20 MG PO (23:11)
[2020-10-08] VITALS (12 sets, daily range): BP systolic 89–112; BP diastolic 41–70; PULSE 79–94; RESP 16–18; TEMP 37–37.3; O2SAT 99–100
[2020-10-08 07:04] LABS: Absolute Lymphocyte Count 0.59 X10^3/uL (0.83-4.51); Absolute Neutrophil Count 6.9 X10^3/uL (2.0-7.7); Basophil# 0.02 X10^3/uL; Basophil% 0.2 % (0-1); Eosinophil# 0.17 X10^3/uL; Hematocrit 32.8 % (40-54); Hemoglobin 10.2 g/dL (13.0-16.5); Lymphocyte # 0.59 X10^3/ul (4.0); Lymphocyte % 6.8 % (19-41); Mean Corp Hgb Conc 31.1 g/dL (32-36); Mean Corpuscular Hgb 30.4 pg (27.0-32.0); Mean Corpuscular Volume 97.6 fL (80-94); Mean Platelet Vol. 10.8 fl (6.2-12.0); Monocyte# 0.97 X10^3/uL; Monocyte% 11.2 % (0-10); NRBC Flagged by Analyzer 0 % (0-5); Neutrophil # 6.88 X10^3/uL (2.7-7.7); Neutrophil % 79.3 % (47-70); POSITIVE DIFFERENTIAL YES; Platelet Count 178 K/mm3 (150-450); RBC Distribution Width CV 17.2 % (11.6-14.6); RBC Distribution Width SD 61.4 fl (35.1-43.9); Red Blood Count 3.36 M/mm3 (4.6-6.2); White Blood Count 8.7 K/mm3 (4.4-11.0)
[2020-10-08 07:06] LABS: Differential Indicated SCAN CRITERIA MET
[2020-10-08 07:15] LABS: Prothrombin Time (Protime)PT. 43.3 SECONDS (11.7-14.9)
[2020-10-08 07:17] LABS: International Normalized Ratio 4.6
[2020-10-08 07:50] LABS: Anion Gap 8 (5-15); BUN 26 mg/dL (7-18); BUN/Creat Ratio 3.2 RATIO (10-20); Chloride 98 mmol/L (98-107); Creatinine, Serum 8.05 mg/dL (0.70-1.30); EST Glomerular Filtration Rate 8 mL/min (>60); Est Glom Filt Rate - Afr Amer 10 mL/min (>60); Estimated Creatinine Clearance 12.85 ml/min; Glucose 83 mg/dL (74-106); Potassium 4.7 mmol/L (3.5-5.1); Sodium Level 135 mmol/L (136-145)
[2020-10-08] MEDS: Amiodarone 200 MG Tablet 400 MG PO ×2 (08:27→22:47)
[2020-10-08] MEDS: Famotidine 20 MG Tablet PO (08:27)
[2020-10-08] MEDS: SEVELAMER CARBONATE 800 MG TABLET PO ×3 (08:28→16:22)
[2020-10-08] MEDS: Aspirin 81 MG TAB.CHEW PO (08:28)
[2020-10-08] MEDS: Ferrous Sulfate 325 MG Tablet PO ×2 (08:28→16:22)
--- NOTE | 2020-10-08 12:50 | PN_ITS ---
Patient Problems: Active and Suspected Problems (Last Reviewed 07/31/20 @ 13:43 by Misa Dominguez) Blind left eye (Acute) Subjective: Patient seen and examined. He still has blurred vision in his left eye. Review of systems is otherwise negative. He has otherwise remained hemodynamically stable. He is awaiting carotid USG tomorrow Vitals/I&O's: Vital Signs Temp Pulse Resp BP Pulse Ox 98.6 F 89 18 107/65 100 10/08/20 08:22 10/08/20 08:22 10/08/20 08:22 10/08/20 08:22 10/08/20 08:22 Oxygen Flow Rate (L/min) 2 Oxygen Delivery Method Room Air Weight: 297 lb 9.6 oz Body Mass Index (BMI) 42.0 Finger Stick Blood Glucose 80 Intake and Output for Last 24 Hours 10/06/20 10/07/20 10/08/20 23:59 23:59 23:59 Intake Total 480 / 480 1200 / 1620 900 / 900 Output Total 0 / 0 0 / 0 Balance 480 / 480 1200 / 1620 900 / 900 General: Alert, Oriented x3, Cooperative, No apparent distress HEENT: Atraumatic, PERRLA, EOMI, Normocephalic, - - still has blurred vision in left eye Oral: Dry Mucosa Neck: Supple, No JVD, Negative Carotid Bruits Lungs: Clear to auscultation, Normal air movement, No rhonchi, No wheeze Cardiovascular: Regular rate, Regular Rhythm, Normal S1, Normal S2, No murmurs Abdomen: Bowel Sounds Present, Soft, Non Tender Extremities: No clubbing, No cyanosis, No edema, Capillary Refill Less than 3 Seconds, - - AV fistula in LUE with good thrill Skin: No rashes, No breakdown Musculoskeletal: No Tenderness to Palpation of Joints or Extremities Lymphatic: No Cervical, Supraclavicular, or Inguinal Adenopathy Neurological: - - markedly diminished vision in left eye Psych/Mental Status: Normal Affect, Appropriate, Alert and oriented to time, place, person, mood and affect Microbiology Past 72 Hours 10/06/20 17:42 Mucosa - Nose SARS-CoV-2 Antigen (Rapid) - Final Laboratory Results 10/08/20 06:54: PT 43.3 H, INR 4.6 H* 10/08/20 06:54: WBC 8.7, RBC 3.36 L, Hgb 10.2 L, Hct 32.8 L, MCV 97.6 H, MCH 30.4, MCHC 31.1 L, RDW Std Deviation 61.4 H, RDW Coeff of Lance 17.2 H, Plt Count 178, MPV 10.8, Immature Gran % (Auto) 0.500, Neut % (Auto) 79.3 H, Lymph % (Auto) 6.8 L, [place] % (Auto) 11.2 H, Eos % (Auto) 2.0, Baso % (Auto) 0.2, Absolute Neuts (auto) 6.9, Absolute Lymphs (auto) 0.59 L, Nucleated RBC % 0 10/08/20 06:54: Sodium 135 L, Potassium 4.7, Chloride 98, Carbon Dioxide 29.0, Anion Gap 8, BUN 26 H, Creatinine 8.05 H*, Estim Creat Clear Calc 12.85, Est GFR (MDRD) Af Amer 10 L, Est GFR (MDRD) Non-Af 8 L, BUN/Creatinine Ratio 3.2 L, Glucose 83, Calcium 8.0 L Diagnostic Data Chest X-Ray 10/06/20 17:33 IMPRESSION: No acute cardiopulmonary disease or interval change. Electronically Signed: Enrico Foster DO at 18:58 EST Tel [phone], Service support , Brain CT 10/06/20 18:33 IMPRESSION: No acute intracranial or calvarial abnormality. There is no major interval change. N.B. : The above information has been verbally conveyed by Enrico Foster DO to Maxi Munson MD, on 10/06/2020 18:47:33 (ET). Electronically Signed: Enrico Foster DO at 18:48 EST Tel [phone], Service support , ADDENDUM: 10/06/20 1855 IMPRESSION: No acute intracranial or calvarial abnormality. There is no major interval change. N.B. : The above information has been verbally conveyed by Enrico Foster DO to Maxi Munson MD, on 10/06/2020 18:47:33 (ET). Electronically Signed: Enrico Foster DO at 18:48 EST Tel [phone], Service support , Brain MRI 10/06/20 21:33 IMPRESSION: Involutional changes of the brain, as described above. No acute infarct. Electronically Signed: Don Menon MD at 12:15 EST Tel , Service support , Current Medications Acetaminophen (Acetaminophen 325 Mg Tablet) 650 mg PO Q6H PRN PRN PRN Reason: Pain Score 1-10/Temp > 100.7 F Al Hydroxide/Mg Hydroxide (Mag Hydrox/Al Hydrox/Simeth 30 Ml Udc) 30 ml PO Q6H PRN PRN PRN Reason: Gastric Burning Last Admin: 10/07/20 19:53 Dose: 30 ml Documented by: Albuterol Sulfate (Albuterol 2.5 Mg/3 Ml Vial.Neb.) 2.5 mg INHALATION Q2H PRN PRN PRN Reason: SOB/Wheezing Amiodarone HCl (Amiodarone 200 Mg Tablet) 400 mg PO BID [facility] Last Admin: 10/08/20 08:27 Dose: 400 mg Documented by: Aspirin (Aspirin 81 Mg Tab.Chew) 81 mg PO DAILY@0800 [facility] Last Admin: 10/08/20 08:28 Dose: 81 mg Documented by: Atorvastatin Calcium (Atorvastatin Calcium 80 Mg Tablet) 80 mg PO QHS [facility] Last Admin: 10/07/20 22:11 Dose: 80 mg Documented by: Famotidine (Famotidine 20 Mg Tablet) 20 mg PO DAILY [facility] Last Admin: 10/08/20 08:27 Dose: 20 mg Documented by: Ferrous Sulfate ([facility] 325 Mg [facility]t) [facility] Last Admin: 10/08/20 08:28 Dose: 325 mg Documented by: Hydralazine HCl (Hydralazine 20 Mg/Ml Vial) 5 mg IV Q30M PRN PRN Reason: to maintain BP goals Labetalol HCl (Labetalol (Prefilled) 20 Mg/4 Ml) 10 - 20 mg IV Q10M PRN PRN PRN Reason: to Maintain BP Goals Metoprolol Tartrate (Metoprolol Tartrate 25 Mg Tablet) 25 mg PO TID [facility] Last Admin: 10/08/20 05:30 Dose: Not Given Documented by: Nitroglycerin (Nitroglycerin (Inpatient Use) 0.4 Mg Tab.Subl) 0.4 mg SUBLINGUAL Q5M PRN PRN Reason: CARDIAC/CHEST PAIN Ondansetron HCl (Ondansetron 4 Mg/2 Ml Vial) 4 mg IV Q8H PRN PRN PRN Reason: NAUSEA/VOMITING Sevelamer Carbonate (Sevelamer Carbonate 800 Mg Tablet) 800 mg PO TIDCM [facility] Last Admin: 10/08/20 12:29 Dose: 800 mg Documented by: Sodium Chloride (0.9% Saline Lock 10 Ml Syringe) 10 - 40 ml IV UD PRN PRN Reason: SALINE FLUSH Medical Necessity - Tobacco Use Smoking Status: Former smoker Tobacco Use: Non-smoker Assessment/Plan All Active Problems (Last Reviewed 07/31/20 @ 13:43 by Misa Dominguez) Blind left eye (Acute) Chest pain (Acute) Expressive aphasia (Acute) #Loss of vision in left eye * Per patient, he was diagnosed with acute central retinal artery occlusion by his lobbyist on outpatient basis. * MRI of the brain done shows chronic involutional changes with no evidence of a stroke. * Carotid ultrasound ordered- to be done tomorrow * Lipid panel was essentially normal. * Aspirin 81 mg daily, atorvastatin 40 mg nightly. * I did discuss with Dr. Alissa Howard, lobbyist on-call. She stated that patient should get an echo and carotid ultrasound as ordered and would need to be anticoagulated. Patient already anticoagulated with supratherapeutic INR. She had management for central retinal artery occlusion would be anticoagulation and risk factor modification. Patient follow-up with ophthalmology on outpatient basis. * Order 2D echo. PT OT on board. * #ESRD on hemodialysis * Dialysis Wednesdays. Nephrology on board. * #Supratherapeutic INR: INR today is 4.6. No evidence of bleeding. Will monitor for continuous downward trend. #Chronic A. fib: On metoprolol and amiodarone. Coumadin on hold on account of supratherapeutic INR #Hypertension: On metoprolol DVT prophylaxis: Not indicated as INR supratherapeutic. Disposition; for likely discharge after carotid USG. Hospitalist called patient's (London Weston-[phone]) to give an update'; she expressed understanding of patient's condition and the need for carotid USG tomorrow as part of stroke workup. Inpatient E&M: 35854 Subs Hosp L2
--- NOTE | 2020-10-08 20:01 | PCM.PN.REN ---
Patient Problems: Active and Suspected Problems (Last Reviewed 07/31/20 @ 13:43 by Misa Dominguez) Blind left eye (Acute) Subjective: no new events - Physical Exam Vitals/I&O's: Vital Signs Temp Pulse Resp BP Pulse Ox 99.2 F H 94 18 100/65 99 10/08/20 16:00 10/08/20 19:00 10/08/20 16:00 10/08/20 16:00 10/08/20 16:00 Oxygen Flow Rate (L/min) 2 Oxygen Delivery Method Room Air Weight: 134.989 kg Body Mass Index (BMI) 42.0 Finger Stick Blood Glucose 80 Intake and Output for Last 24 Hours 10/06/20 10/07/20 10/08/20 23:59 23:59 23:59 Intake Total 480 / 480 1200 / 1620 1380 / 1380 Output Total 0 / 0 0 / 0 Balance 480 / 480 1200 / 1620 1380 / 1380 General: Alert, Oriented x3, Cooperative HEENT: Atraumatic, PERRLA, EOMI, Normocephalic Neck: Supple, No JVD, Negative Carotid Bruits Lungs: Clear to auscultation, Normal air movement Cardiovascular: Regular rate, No murmurs Abdomen: Bowel Sounds Present, Soft, Non Tender Extremities: No edema, Capillary Refill Less than 3 Seconds Skin: No rashes, No breakdown Musculoskeletal: No Tenderness to Palpation of Joints or Extremities Neurological: Cranial nerves II-XII grossly intact Psych/Mental Status: Normal Affect, Appropriate Microbiology Past 72 Hours 10/06/20 17:42 Mucosa - Nose SARS-CoV-2 Antigen (Rapid) - Final Laboratory Results 10/08/20 06:54: PT 43.3 H, INR 4.6 H* 10/08/20 06:54: WBC 8.7, RBC 3.36 L, Hgb 10.2 L, Hct 32.8 L, MCV 97.6 H, MCH 30.4, MCHC 31.1 L, RDW Std Deviation 61.4 H, RDW Coeff of Lance 17.2 H, Plt Count 178, MPV 10.8, Immature Gran % (Auto) 0.500, Neut % (Auto) 79.3 H, Lymph % (Auto) 6.8 L, [place] % (Auto) 11.2 H, Eos % (Auto) 2.0, Baso % (Auto) 0.2, Absolute Neuts (auto) 6.9, Absolute Lymphs (auto) 0.59 L, Nucleated RBC % 0 10/08/20 06:54: Sodium 135 L, Potassium 4.7, Chloride 98, Carbon Dioxide 29.0, Anion Gap 8, BUN 26 H, Creatinine 8.05 H*, Estim Creat Clear Calc 12.85, Est GFR (MDRD) Af Amer 10 L, Est GFR (MDRD) Non-Af 8 L, BUN/Creatinine Ratio 3.2 L, Glucose 83, Calcium 8.0 L Current Medications Acetaminophen (Acetaminophen 325 Mg Tablet) 650 mg PO Q6H PRN PRN PRN Reason: Pain Score 1-10/Temp > 100.7 F Al Hydroxide/Mg Hydroxide (Mag Hydrox/Al Hydrox/Simeth 30 Ml Udc) 30 ml PO Q6H PRN PRN PRN Reason: Gastric Burning Last Admin: 10/07/20 19:53 Dose: 30 ml Documented by: Albuterol Sulfate (Albuterol 2.5 Mg/3 Ml Vial.Neb.) 2.5 mg INHALATION Q2H PRN PRN PRN Reason: SOB/Wheezing Amiodarone HCl (Amiodarone 200 Mg Tablet) 400 mg PO BID [facility] Last Admin: 10/08/20 08:27 Dose: 400 mg Documented by: Aspirin (Aspirin 81 Mg Tab.Chew) 81 mg PO DAILY@0800 [facility] Last Admin: 10/08/20 08:28 Dose: 81 mg Documented by: Atorvastatin Calcium (Atorvastatin Calcium 80 Mg Tablet) 80 mg PO QHS [facility] Last Admin: 10/07/20 22:11 Dose: 80 mg Documented by: Famotidine (Famotidine 20 Mg Tablet) 20 mg PO DAILY [facility] Last Admin: 10/08/20 08:27 Dose: 20 mg Documented by: Ferrous Sulfate (Ferrous Sulfate 325 Mg Tablet) 325 mg PO BIDCM [facility] Last Admin: 10/08/20 16:22 Dose: 325 mg Documented by: Hydralazine HCl (Hydralazine 20 Mg/Ml Vial) 5 mg IV Q30M PRN PRN Reason: to maintain BP goals Labetalol HCl (Labetalol (Prefilled) 20 Mg/4 Ml) 10 - 20 mg IV Q10M PRN PRN PRN Reason: to Maintain BP Goals Metoprolol Tartrate (Metoprolol Tartrate 25 Mg Tablet) 25 mg PO TID [facility] Last Admin: 10/08/20 14:38 Dose: Not Given Documented by: Nitroglycerin (Nitroglycerin (Inpatient Use) 0.4 Mg Tab.Subl) 0.4 mg SUBLINGUAL Q5M PRN PRN Reason: CARDIAC/CHEST PAIN Ondansetron HCl (Ondansetron 4 Mg/2 Ml Vial) 4 mg IV Q8H PRN PRN PRN Reason: NAUSEA/VOMITING Sevelamer Carbonate (Sevelamer Carbonate 800 Mg Tablet) 800 mg PO TIDCM [facility] Last Admin: 10/08/20 16:22 Dose: 800 mg Documented by: Sodium Chloride (0.9% Saline Lock 10 Ml Syringe) 10 - 40 ml IV UD PRN PRN Reason: SALINE FLUSH Medical Necessity - Tobacco Use Smoking Status: Former smoker Tobacco Use: Non-smoker Assessment/Plan All Active Problems (Last Reviewed 07/31/20 @ 13:43 by Misa Dominguez) Blind left eye (Acute) Chest pain (Acute) Expressive aphasia (Acute) ESRD. Dialysis today. Central retinal artery obstruction. Management as per primary service. Stroke work-up ongoing. Atrial fibrillation Hypotension He was recently admitted at [facility]. Blood pressure has been significantly low since then. Apparently his metoprolol was increased to 3 times a day. He is also on high-dose amiodarone. Keep twice a day.
[2020-10-08] MEDS: Atorvastatin Calcium 80 MG Tablet PO (22:47)
[2020-10-08] MEDS: MELATONIN 3 MG TABLET PO (22:48)
[2020-10-08] MEDS: Metoprolol Tartrate 25 MG Tablet PO (22:48)
[2020-10-09] VITALS (8 sets, daily range): BP systolic 88–103; BP diastolic 47–60; PULSE 70–82; RESP 15–16; TEMP 36.6–36.9; O2SAT 99–100
[2020-10-09 06:01] LABS: Absolute Neutrophil Count 4.9 X10^3/uL (2.0-7.7); Basophil# 0.03 X10^3/uL; Basophil% 0.5 % (0-1); Eosinophil# 0.21 X10^3/uL; Eosinophils% 3.2 % (0-5); Hematocrit 31.2 % (40-54); Hemoglobin 9.5 g/dL (13.0-16.5); Lymphocyte % 10.6 % (19-41); Mean Corp Hgb Conc 30.4 g/dL (32-36); Mean Corpuscular Volume 98.4 fL (80-94); Mean Platelet Vol. 10.3 fl (6.2-12.0); Monocyte% 12.1 % (0-10); NRBC Flagged by Analyzer 0 % (0-5); Neutrophil # 4.87 X10^3/uL (2.7-7.7); Neutrophil % 73.3 % (47-70); Platelet Count 174 K/mm3 (150-450); RBC Distribution Width CV 17.2 % (11.6-14.6); RBC Distribution Width SD 62.4 fl (35.1-43.9); Red Blood Count 3.17 M/mm3 (4.6-6.2); White Blood Count 6.6 K/mm3 (4.4-11.0)
[2020-10-09 06:19] LABS: Prothrombin Time (Protime)PT. 36.1 SECONDS (11.7-14.9)
[2020-10-09 06:21] LABS: International Normalized Ratio 3.7
[2020-10-09 06:34] LABS: Anion Gap 7 (5-15); BUN 42 mg/dL (7-18); BUN/Creat Ratio 3.9 RATIO (10-20); Calcium,Total 8.2 mg/dL (8.5-10.1); Chloride 98 mmol/L (98-107); EST Glomerular Filtration Rate 6 mL/min (>60); Est Glom Filt Rate - Afr Amer 7 mL/min (>60); Estimated Creatinine Clearance 9.67 ml/min; Glucose 86 mg/dL (74-106); Sodium Level 134 mmol/L (136-145)
[2020-10-09] MEDS: SEVELAMER CARBONATE 800 MG TABLET PO ×2 (09:07→12:36)
[2020-10-09] MEDS: Amiodarone 200 MG Tablet 400 MG PO (09:07)
[2020-10-09] MEDS: Aspirin 81 MG TAB.CHEW PO (09:07)
[2020-10-09] MEDS: Ferrous Sulfate 325 MG Tablet PO (09:07)
[2020-10-09] MEDS: Famotidine 20 MG Tablet PO (09:08)
--- NOTE | 2020-10-09 10:12 | CASEMGMT ---
Per Dr. Santiago, she would like to discharge pt today after carotid US resulted. Call to Farhad at [facility] and he states as long as they can get pt hooked up by [phone], pt can come to OP dialysis today. Camilo, PCU charge, and Dr. Santiago aware, voices understanding. Glo RAMOS CM
--- NOTE | 2020-10-09 10:40 | CASEMGMT ---
RACHEL PARNELL assessment: Face to Face with patient for initial transition planning/care coordination assessment. RN SOHEILA introduced self and role at [facility], pt voices understanding and consents to assessment at this time. Pt is lying in bed in no distress at this time. Pt is A/Ox4 at this time and answers all questions appropriately at this time. Care providers, pharmacy, and demographics verified at this time. Presentation: Pt noticed vision changes at 2230 last night, last known well 1900 last night, sent in by eye dr Admitting dx: CVA PCP: [facility] Specialists: Nora, nephro; Josh, cardio; Dmitri, cooler man at [facility] Preferred Pharmacy: [facility] Insurance: [employer] Prescription Benefit: [employer] Living Will/HPOA: Pt has LW/HPOA and is aware that they are on file at [facility] at this time. Pt states his , London Weston, is HPOA. LNOK: London Weston, ; Yara Weston, mother Living Arrangements: Pt states lives with in home with a 'man cave' in the basement and states no concerns at home at this time. Pt states is independent with ADL's. Transportation: Pt states drives self and states no transportation concerns at this time. DME/HHC: Pt states has a cpap thru [employer] but states they no longer take his insurance and pt would like this RN CM to help him find a DME company that takes his insurance and would like the contact info for same. Call to [employer] and they do take pt's insurance at this time. Contact info provided and pt voice no further questions/concerns/needs at this time. Pt states no need for any further DME at this time. Pt states no hx of HHC or SNF in the past. Pt does have OP dialysis MWF at 1050 at [facility]. 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 Dr. Santiago aware, voices understanding. Pt states no concerns with going home at time of discharge. 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 Pt states does not smoke cigarettes or drink ETOH. Pt states no further concerns/needs at this time. CM to follow for any further discharge planning/needs. Advised pt to ask for CM if any further questions/concerns/needs arise, voices understanding. Pt Goal: Home Plan: Home Glo RAMOS CM
--- NOTE | 2020-10-09 13:13 | PCM.PN.REN ---
Patient Problems: Active and Suspected Problems (Last Reviewed 07/31/20 @ 13:43 by Misa Dominguez) Blind left eye (Acute) Subjective: The patient still has blurry vision in the left eye but no headache no focal weakness no other complaints. - Physical Exam Vitals/I&O's: Vital Signs Temp Pulse Resp BP Pulse Ox 97.9 F 82 16 97/47 L 99 10/09/20 12:30 10/09/20 12:30 10/09/20 12:30 10/09/20 12:30 10/09/20 12:30 Oxygen Flow Rate (L/min) 2 Oxygen Delivery Method Nasal Cannula Weight: 135 kg Body Mass Index (BMI) 42.0 Finger Stick Blood Glucose 80 Intake and Output for Last 24 Hours 10/07/20 10/08/20 10/09/20 23:59 23:59 23:59 Intake Total 1200 / 1620 1620 / 1620 580 / 580 Output Total 0 / 0 0 / 0 Balance 1200 / 1620 1620 / 1620 580 / 580 General: Alert, Cooperative HEENT: Atraumatic, Normocephalic Oral: Moist Mucosa Neck: Supple, Trachea Midline Lungs: Clear to auscultation, Normal air movement Cardiovascular: Normal S1, Normal S2 Abdomen: Bowel Sounds Present, Soft Extremities: No edema Microbiology Past 72 Hours 10/06/20 17:42 Mucosa - Nose SARS-CoV-2 Antigen (Rapid) - Final Laboratory Results 10/09/20 05:50: WBC 6.6, RBC 3.17 L, Hgb 9.5 L, Hct 31.2 L, MCV 98.4 H, MCH 30.0, MCHC 30.4 L, RDW Std Deviation 62.4 H, RDW Coeff of Lance 17.2 H, Plt Count 174, MPV 10.3, Immature Gran % (Auto) 0.300, Neut % (Auto) 73.3 H, Lymph % (Auto) 10.6 L, [place] % (Auto) 12.1 H, Eos % (Auto) 3.2, Baso % (Auto) 0.5, Absolute Neuts (auto) 4.9, Absolute Lymphs (auto) 0.70 L, Nucleated RBC % 0 10/09/20 05:50: Sodium 134 L, Potassium 5.0, Chloride 98, Carbon Dioxide 29.0, Anion Gap 7, BUN 42 H, Creatinine 10.70 H*, Estim Creat Clear Calc 9.67, Est GFR (MDRD) Af Amer 7 L, Est GFR (MDRD) Non-Af 6 L, BUN/Creatinine Ratio 3.9 L, Glucose 86, Calcium 8.2 L 10/09/20 05:50: PT 36.1 H, INR 3.7 H* Current Medications Acetaminophen (Acetaminophen 325 Mg Tablet) 650 mg PO Q6H PRN PRN PRN Reason: Pain Score 1-10/Temp > 100.7 F Al Hydroxide/Mg Hydroxide (Mag Hydrox/Al Hydrox/Simeth 30 Ml Udc) 30 ml PO Q6H PRN PRN PRN Reason: Gastric Burning Last Admin: 10/07/20 19:53 Dose: 30 ml Documented by: Albuterol Sulfate (Albuterol 2.5 Mg/3 Ml Vial.Neb.) 2.5 mg INHALATION Q2H PRN PRN PRN Reason: SOB/Wheezing Amiodarone HCl (Amiodarone 200 Mg Tablet) 400 mg PO BID [facility] Last Admin: 10/09/20 09:07 Dose: 400 mg Documented by: Aspirin (Aspirin 81 Mg Tab.Chew) 81 mg PO DAILY@0800 [facility] Last Admin: 10/09/20 09:07 Dose: 81 mg Documented by: Atorvastatin Calcium (Atorvastatin Calcium 80 Mg Tablet) 80 mg PO QHS [facility] Last Admin: 10/08/20 22:47 Dose: 80 mg Documented by: Famotidine (Famotidine 20 Mg Tablet) 20 mg PO DAILY [facility] Last Admin: 10/09/20 09:08 Dose: 20 mg Documented by: Ferrous Sulfate (Ferrous Sulfate 325 Mg Tablet) [facility] Last Admin: 10/09/20 09:07 Dose: 325 mg Documented by: Hydralazine HCl (Hydralazine 20 Mg/Ml Vial) 5 mg IV Q30M PRN PRN Reason: to maintain BP goals Labetalol HCl (Labetalol (Prefilled) 20 Mg/4 Ml) 10 - 20 mg IV Q10M PRN PRN PRN Reason: to Maintain BP Goals Melatonin (Melatonin 3 Mg Tablet) 3 mg PO QHS PRN PRN Reason: SLEEP Last Admin: 10/08/20 22:48 Dose: 3 mg Documented by: Metoprolol Tartrate (Metoprolol Tartrate 25 Mg Tablet) 25 mg PO TID [facility] Last Admin: 10/09/20 06:00 Dose: Not Given Documented by: Nitroglycerin (Nitroglycerin (Inpatient Use) 0.4 Mg Tab.Subl) 0.4 mg SUBLINGUAL Q5M PRN PRN Reason: CARDIAC/CHEST PAIN Ondansetron HCl (Ondansetron 4 Mg/2 Ml Vial) 4 mg IV Q8H PRN PRN PRN Reason: NAUSEA/VOMITING Sevelamer Carbonate (Sevelamer Carbonate 800 Mg Tablet) 800 mg PO TIDCM [facility] Last Admin: 10/09/20 12:36 Dose: 800 mg Documented by: Sodium Chloride (0.9% Saline Lock 10 Ml Syringe) 10 - 40 ml IV UD PRN PRN Reason: SALINE FLUSH Medical Necessity - Tobacco Use Smoking Status: Former smoker Tobacco Use: Non-smoker Assessment/Plan All Active Problems (Last Reviewed 07/31/20 @ 13:43 by Misa Dominguez) Blind left eye (Acute) Chest pain (Acute) Expressive aphasia (Acute) ESRD. Dialysis today.then mwf CKD MBD continue sevelamer Anemia?Epogen if prolonged her hospital stay. Central retinal artery obstruction/Atrial fibrillation/misc per primary team
--- NOTE | 2020-10-09 13:48 | PCM.DC ---
- Discharge Diagnoses Current Active Problems: Current Active and Chronic Problems (Last Reviewed 07/31/20 @ 13:43 by Misa Dominguez) Blind left eye (Acute) Atrial fibrillation with RVR (Chronic) ESRD on hemodialysis (Chronic) PAF (paroxysmal atrial fibrillation) (Chronic) Morbidly obese (Chronic) 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 due to renal insufficiency (Chronic) Sleep apnea (Chronic) You will use the following diet at home:: Cardiac, Renal (restricted protein/sodium) Your food should be the consistency of: Regular Your liquids should be the consistency of: Regular/Thin Discharge Activity: May Not Drive Additional Instructions: -Call PCP tomorrow for INR. Hold all Coumadin doses until instructed further by primary care. -Metoprolol will be decreased to 2 tablets a day instead of 3. So dosing will be twice a day instead of 3 times per day. -Start atorvastatin prescription sent -Use eyedrops as prescribed by electric shovel operator. Allergies/Adverse Reactions: Allergies No Known Allergies Allergy (Verified 10/06/20 17:10) Medications to take at Discharge Ferric Citrate [Auryxia] 630 mg PO TIDCM 02/05/19 amiodarone 400 mg tablet 400 mg PO BID 09/25/20 Warfarin [Coumadin ([facility])] 5 mg PO DAILY 10/06/20 Atorvastatin Calcium [Lipitor] 80 mg PO QHS #30 tab 10/09/20 Brimonidine Tartrate 0.2% [Brimonidine 0.2% 5Ml Bottle] 1 drp LEFT EYE TID #1 bottle 10/09/20 Metoprolol Tartrate 25 mg PO BID #0 10/09/20 The following prescriptions were given: Brimonidine Tartrate 0.2% [Brimonidine 0.2% 5Ml Bottle] 1 drp LEFT EYE TID #1 bottle Transmission Status: Pending to [facility] #30 Atorvastatin Calcium [Lipitor] 80 mg PO QHS #30 tab Transmission Status: Sent to [facility] #30 Primary Care Physician: Pawel Banda MD [Primary Care Provider] - Please follow up with your Primary Care Physician in: 1-2 weeks Test Results: Test results from this visit will be discussed in further detail at your follow-up appointment, if applicable. Please Follow Up With: Dr. Osei (eye) When: as scheduled
--- NOTE | 2020-10-09 14:41 | CASEMGMT ---
Farhad at [facility] aware that pt will be coming to OP dialysis once discharge from [facility], voices understanding. Pt states he plans to go to dialysis at discharge. Pt voices no further questions/concerns/needs at this time. Glo RAMOS CM
--- NOTE | 2020-10-09 14:41 | PCM.DC.SUM ---
Discharge Date and Diagnosis - Problem List Patient Problems: Active and Suspected Problems (Last Reviewed 07/31/20 @ 13:43 by Misa Dominguez) Blind left eye (Acute) Date of Admission: 10/06/20 Date of Discharge: 10/09/20 - Primary Discharge Diagnosis Acute Problems: Active Problems (Last Reviewed 07/31/20 @ 13:43 by Misa Dominguez) Blind left eye (Acute) - Secondary Discharge Diagnosis Chronic Problems: Chronic Problems (Last Reviewed 07/31/20 @ 13:43 by Misa Dominguez) Atrial fibrillation with RVR (Chronic) COVID-19 (Chronic) ESRD on hemodialysis (Chronic) PAF (paroxysmal atrial fibrillation) (Chronic) Dialysis patient (Chronic) Anemia of chronic disorder (Chronic) Hypertension (Chronic) ESRD (end stage renal disease) (Chronic) Due to hypertension, On hemodialysis, TTS, followed by Dr. Goncalves Morbidly obese (Chronic) Sleep apnea (Chronic) 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 due to renal insufficiency (Chronic) Hematuria (Chronic) Pelvic mass (Chronic) Chronic pelvic pain in male (Chronic) Chronic kidney disease-mineral and bone disorder (Chronic) Mitral valve stenosis (Chronic) Sleep apnea (Chronic) Hearing loss (Chronic) in both ears Hospital Course and Treatment Imaging Results: Carotid ultrasound 10/09/2020 -Calcific plaque shadowing at the proximal right ICA with 50 to 69% stenosis -Calcific plaque of the left proximal ICA 50 to 69% stenosis -Bilateral ECA less than 50% stenosis -Antegrade vertebrals bilaterally MRI brain 10/07/2020 FINDINGS: There is mild cerebral atrophy with widening of the extra-axial spaces and ventricular dilatation. There are a limited number of small white matter hyperintensities, distributed throughout the deep white matter tracts of the cerebral hemispheres, consistent with mild chronic white matter ischemic changes. There is no evidence for recent intracranial ischemia or other cause of cytotoxic edema on diffusion weighted imaging (DWI). Normal T2* images of the brain without demonstrated susceptibility artifact. There is no demonstrated hemosiderin stain. Normal bilateral basal ganglia. Normal thalami. There is no extra-axial fluid accumulation. Normal flow voids within the major intracranial circulation suggesting patency by spin echo criteria. There is enlargement of the sella turcica with increased CSF within the sella and flattening of the pituitary gland consistent with an empty sellar syndrome. Normal infundibular stalk, hypothalamus, and optic chiasm. Normal tectal plate and pineal gland. Normal midbrain, nereida and medulla. Normal cerebellum. Normal basal cisterns. Normal bilateral temporal bones. Normal bilateral internal auditory canals. No demonstrated orbital abnormality, within the constraints of a routine brain study. Normal visualized paranasal sinuses. Normal calvarium and skull base. Normal visualized soft tissue structures. Normal visualized upper cervical spine. MRI/Brain without Contrast IMPRESSION: Involutional changes of the brain, as described above. No acute infarct. Reason For Study: TIA/CVA Procedure This was a 2D Doppler, Color Flow transthoracic echocardiogram. Technically difficult study due to patients body habitus, patient unable to hold still for testing. Contrast injection performed. Bubble study attempted 2x and was inconclusive. Exam performed portable in patient room. Left Ventricle Normal left ventricle. The estimated ejection fraction is 65 %. Left ventricular systolic function is hyperdynamic. Stage 2 diastolic dysfunction. No regional wall motion abnormalities noted. Right Ventricle Normal right ventricle. Normal systolic function. Atria The left atrium is moderately enlarged. Normal right atrium. Mitral Valve Moderate focal mitral valve thickening. Severe mitral annular calcification. Mild mitral valve stenosis. Moderate (2+) mitral valve insufficiency. Tricuspid Valve Moderate (2+) tricuspid valve insufficiency. Mild pulmonary hypertension. Pulmonic Valve The pulmonic valve is not well visualized. Great Vessels not seen. Pericardium/Pleural No pericardial effusion. Medication Diluted definity 3ml given slow IV push to enhance endocardial definition. Performed a rapid injection of agitated mix of 9 cc saline and 1cc air to assess for atrial septal defect. MMode/2D Measurements & Calculations LVIDd: 4.6 cm IVSd: 1.1 cm LA dimension: 4.7 cm LVIDs: 2.3 cm LVPWd: 0.81 cm FS: 50.4 % LAV(MOD-bp): 75.8 ml LA A4 area: 21.4 cm2 RA A4 area: 12.0 cm2 LAV(MOD-bp) Indexed: 30.8 ml/m2 LAV(MOD-sp2): 82.5 ml LAV(MOD-sp4): 66.8 ml Time Measurements MV dec time: 0.44 sec Doppler Measurements & Calculations MV E max gaurang: 199.0 cm/sec Lat Peak E' Gaurang: 9.7 cm/sec Med Peak E' Gaurang: 6.8 cm/sec MV A max gaurang: 162.9 cm/sec E/E' lat: 20.6 E/E' med: 29.4 MV E/A: 1.2 MV V2 max: 281.2 cm/sec MV P1/2t max gaurang: 283.1 cm/sec Ao V2 max: 111.7 cm/sec MV max P.6 mmHg MV P1/2t: 121.2 msec Ao max P.0 mmHg MV V2 mean: 188.2 cm/sec MV dec slope: 684.0 cm/sec2 MV mean P.7 mmHg MVA(P1/2t): 1.8 cm2 MV V2 VTI: 90.8 cm AI max gaurang: 228.2 cm/sec LV V1 max: 113.1 cm/sec MR max gaurang: 404.5 cm/sec AI max P.8 mmHg LV V1 max P.1 mmHg MR max P.5 mmHg AI dec slope: 205.2 cm/sec2 AI P1/2t: 325.7 msec PA V2 max: 89.6 cm/sec TR max gaurang: 327.0 cm/sec TR max P.8 mmHg Interpretation Summary Stage 2 diastolic dysfunction. Left ventricular systolic function is hyperdynamic. The estimated ejection fraction is 65 %. Moderate focal mitral valve thickening. Severe mitral annular calcification. Mild mitral valve stenosis. Moderate (2+) mitral valve insufficiency. The left atrium is moderately enlarged. Moderate (2+) tricuspid valve insufficiency. Mild pulmonary hypertension. Consultations 10/07/20 01:01 Consult: Chaplain Davis Comment: Reason for Consult: Pt. request. Operations: None Procedures: 2-D Echocardiogram, - - MRI Carotid ultrasound Summary of Care Provided: Mr. Weston is a 40 year old -[place]ian Male with a very complex medical history who presented to the emergency department on 10/06/2020 for left eye blindness. The patient reported that on when he woke up to go to work in the evening he had acute blindness that resolved fairly quickly but he had repeated episodes of this throughout the evening and into the next morning while he was at work. He went to see the rn case mgr the next day and he was diagnosed with central retinal artery occlusion. His rn case mgr sent him into the emergency department to rule out stroke as a cause of cause of blindness. He stated at the time of admission he had a similar episode in 2005 and was told at that time he had destroyed blood vessels in his eye from uncontrolled hypertension. He is currently on dialysis for end-stage renal disease. He was recently diagnosed with atrial fibrillation and RVR and placed on amiodarone, metoprolol, and Coumadin. His blood pressures overall have been on the low side since starting his metoprolol and per discussion both with his rn case mgr and with nephrology we have elected to decrease his metoprolol from 3 times a day to twice a day and monitor his blood pressure with potential further reductions in the future depending on response. During his admission he had an MRI which was negative for acute infarct, he had an echocardiogram which showed an ejection fraction of 65%, severe mitral annular calcification and 2+ mitral insufficiency, and moderate left atrial enlargement. Carotid ultrasounds were done as well and showed bilateral internal carotid artery plaques 50 to 69% with no flow abnormalities and vertebral flow was antegrade. I did discuss with his rn case mgr, Dr. Osei, regarding how to proceed with his negative stroke work-up and CRAO. He is to continue his eyedrops that were prescribed at his initial appointment, we will continue his anticoagulation, we will reduce his beta-zbigniew from 3 times a day to twice a day to improve overall blood flow through that artery, and he is to follow-up with Dr. Osei as scheduled. His INR was supratherapeutic on admission and his Coumadin has been held. INR on day of discharge was 3.8. I discussed with the patient and wrote in discharge since instructions he is to have an INR done tomorrow at his primary care doctor's office and hold his Coumadin until instructed otherwise. He was started on atorvastatin 80 mg nightly. He will need follow-up carotid ultrasounds yearly and follow-up with vascular surgery at his primary care's discretion. He was instructed to hold off on driving at this time given his visual impairment. He was discharged in stable condition although distressed about his potential permanent loss of vision in his left eye. 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 PAF Supratherapeutic INR Chronic anemia of renal disease Hyponatremia YEIMY History of hypertension [place] Discharge time greater than 35 minutes Patient Problems: Active and Suspected Problems (Last Reviewed 07/31/20 @ 13:43 by Misa Dominguez) Blind left eye (Acute) - Physical Exam Vitals/I&O's: Vital Signs Temp Pulse Resp BP Pulse Ox 97.9 F 82 16 97/47 L 99 10/09/20 12:30 10/09/20 12:30 10/09/20 12:30 10/09/20 12:30 10/09/20 12:30 Oxygen Flow Rate (L/min) 2 Oxygen Delivery Method Nasal Cannula Weight: 135 kg Body Mass Index (BMI) 42.0 Finger Stick Blood Glucose 80 Intake and Output for Last 24 Hours 10/07/20 10/08/20 10/09/20 23:59 23:59 23:59 Intake Total 1200 / 1620 1620 / 1620 580 / 580 Output Total 0 / 0 0 / 0 Balance 1200 / 1620 1620 / 1620 580 / 580 General: Alert, Oriented x3, Cooperative, No apparent distress, Well developed, Well nourished, - - -[place]ian male sitting up in chair eating lunch, visibly distressed after discussion about his left eye blindness, nontoxic HEENT: Atraumatic, PERRLA, EOMI, Normocephalic, EAC Clear Oral: Moist Mucosa, No Gingival or Mucosal Lesions/ Ulcerations Neck: Supple, Trachea Midline, Thyroid Normal Size and Texture Lungs: Clear to auscultation, Normal air movement, No rhonchi, No wheeze, No rales Cardiovascular: Regular rate, Regular Rhythm, Normal S1, Normal S2, No Ectopic Activity, Murmur - 2/6, No rub noted, No Gallop Abdomen: Bowel Sounds Present, Soft, Non Tender, Non-Distended, Obese Extremities: No clubbing, No cyanosis, Capillary Refill Less than 3 Seconds, Edema - Trace bilateral, Peripheral Pulses Normal Skin: No rashes, No breakdown Musculoskeletal: No Tenderness to Palpation of Joints or Extremities, No Muscle Wasting Lymphatic: No Cervical, Supraclavicular, or Inguinal Adenopathy Neurological: Deep Tendon Reflexes 2+/4 and Symmetrical, Neuro grossly intact, Motor Exam 5/5 strength throughout, Muscle tone normal, Sensory exam intact to light touch and pain, Coordination normal, - - Left eye blindness although not complete as I do get some pupillary response but this is sluggish and minimal, patient is able to see shadows but nothing is clear Psych/Mental Status: Appropriate, Flat Affect, - - Appropriately distressed about his left eye visual impairment Microbiology Past 72 Hours 10/06/20 17:42 Mucosa - Nose SARS-CoV-2 Antigen (Rapid) - Final Laboratory Results 10/09/20 05:50: WBC 6.6, RBC 3.17 L, Hgb 9.5 L, Hct 31.2 L, MCV 98.4 H, MCH 30.0, MCHC 30.4 L, RDW Std Deviation 62.4 H, RDW Coeff of Lance 17.2 H, Plt Count 174, MPV 10.3, Immature Gran % (Auto) 0.300, Neut % (Auto) 73.3 H, Lymph % (Auto) 10.6 L, [place] % (Auto) 12.1 H, Eos % (Auto) 3.2, Baso % (Auto) 0.5, Absolute Neuts (auto) 4.9, Absolute Lymphs (auto) 0.70 L, Nucleated RBC % 0 10/09/20 05:50: Sodium 134 L, Potassium 5.0, Chloride 98, Carbon Dioxide 29.0, Anion Gap 7, BUN 42 H, Creatinine 10.70 H*, Estim Creat Clear Calc 9.67, Est GFR (MDRD) Af Amer 7 L, Est GFR (MDRD) Non-Af 6 L, BUN/Creatinine Ratio 3.9 L, Glucose 86, Calcium 8.2 L 10/09/20 05:50: PT 36.1 H, INR 3.7 H* Current Medications Acetaminophen (Acetaminophen 325 Mg Tablet) 650 mg PO Q6H PRN PRN PRN Reason: Pain Score 1-10/Temp > 100.7 F Al Hydroxide/Mg Hydroxide (Mag Hydrox/Al Hydrox/Simeth 30 Ml Udc) 30 ml PO Q6H PRN PRN PRN Reason: Gastric Burning Last Admin: 10/07/20 19:53 Dose: 30 ml Documented by: Albuterol Sulfate (Albuterol 2.5 Mg/3 Ml Vial.Neb.) 2.5 mg INHALATION Q2H PRN PRN PRN Reason: SOB/Wheezing Amiodarone HCl (Amiodarone 200 Mg Tablet) 400 mg PO BID [facility] Last Admin: 10/09/20 09:07 Dose: 400 mg Documented by: Aspirin (Aspirin 81 Mg Tab.Chew) 81 mg PO DAILY@0800 [facility] Last Admin: 10/09/20 09:07 Dose: 81 mg Documented by: Atorvastatin Calcium (Atorvastatin Calcium 80 Mg Tablet) 80 mg PO QHS [facility] Last Admin: 10/08/20 22:47 Dose: 80 mg Documented by: Famotidine (Famotidine 20 Mg Tablet) 20 mg PO DAILY [facility] Last Admin: 10/09/20 09:08 Dose: 20 mg Documented by: Ferrous Sulfate (Ferrous Sulfate 325 Mg Tablet) 325 mg PO BIDCM [facility] Last Admin: 10/09/20 09:07 Dose: 325 mg Documented by: Hydralazine HCl (Hydralazine 20 Mg/Ml Vial) 5 mg IV Q30M PRN PRN Reason: to maintain BP goals Labetalol HCl (Labetalol (Prefilled) 20 Mg/4 Ml) 10 - 20 mg IV Q10M PRN PRN PRN Reason: to Maintain BP Goals Melatonin (Melatonin 3 Mg Tablet) 3 mg PO QHS PRN PRN Reason: SLEEP Last Admin: 10/08/20 22:48 Dose: 3 mg Documented by: Metoprolol Tartrate (Metoprolol Tartrate 25 Mg Tablet) 25 mg PO TID [facility] Last Admin: 10/09/20 06:00 Dose: Not Given Documented by: Nitroglycerin (Nitroglycerin (Inpatient Use) 0.4 Mg Tab.Subl) 0.4 mg SUBLINGUAL Q5M PRN PRN Reason: CARDIAC/CHEST PAIN Ondansetron HCl (Ondansetron 4 Mg/2 Ml Vial) 4 mg IV Q8H PRN PRN PRN Reason: NAUSEA/VOMITING Sevelamer Carbonate (Sevelamer Carbonate 800 Mg Tablet) 800 mg PO TIDCM [facility] Last Admin: 10/09/20 12:36 Dose: 800 mg Documented by: Sodium Chloride (0.9% Saline Lock 10 Ml Syringe) 10 - 40 ml IV UD PRN PRN Reason: SALINE FLUSH Discharge Activity: May Not Drive Home Medications: Medications to take at Discharge Ferric Citrate [Auryxia] 630 mg PO TIDCM 02/05/19 amiodarone 400 mg tablet 400 mg PO BID 09/25/20 Warfarin [Coumadin ([facility])] 5 mg PO DAILY 10/06/20 Atorvastatin Calcium [Lipitor] 80 mg PO QHS #30 tab 10/09/20 Brimonidine Tartrate 0.2% [Brimonidine 0.2% 5Ml Bottle] 1 drp LEFT EYE TID #1 bottle 10/09/20 Metoprolol Tartrate 25 mg PO BID #0 10/09/20 Following Prescriptions Were Given to Patient: Brimonidine Tartrate 0.2% [Brimonidine 0.2% 5Ml Bottle] 1 drp LEFT EYE TID #1 bottle Transmission Status: Pending to [facility] Atorvastatin Calcium [Lipitor] 80 mg PO QHS #30 tab Transmission Status: Sent to [facility] Primary Care Physician: Pawel Banda MD [Primary Care Provider] - Please follow up with your Primary Care Physician in: 1-2 weeks Please Follow Up With: Dr. Osei (eye) When: as scheduled Please Follow Up With: Pawel Banda MD Medical Necessity - Tobacco Use Smoking Status: Former smoker Tobacco Use: Non-smoker Meaningful Use Info Meaningful Use Diagnoses (Choose all that apply): None applicable Inpatient E&M: [id number] [facility]
--- NOTE | 2020-10-09 14:43 | PHA.DC.MC ---
Pharmacy Service has performed discharge medication reconciliation and counseling for this patient. 1. ATORVASTATIN 80MG PO QHS 2. BRIMONIDINE 0.2% OPHTHALMIC SOLN 1GTT OS TID The patient's discharge medication list was reviewed for discrepancies and discrepancies were resolved. Home Medications Ferric Citrate [Auryxia] 630 mg PO TIDCM 02/05/19 amiodarone 400 mg tablet 400 mg PO BID 09/25/20 Warfarin [Coumadin] 5 mg PO DAILY 10/06/20 Atorvastatin Calcium [Lipitor] 80 mg PO QHS #30 tab 10/09/20 Brimonidine Tartrate 0.2% [Brimonidine 0.2% 5Ml Bottle] 1 drp LEFT EYE TID #1 bottle 10/09/20 Metoprolol Tartrate 25 mg PO BID #0 10/09/20 The patient was counseled on the following discharge medications and changes in medications for homegoing were reviewed. The Reason for Use, instructions for use, and potential side effects were reviewed for all new medications. The patient's questions regarding all of their medications were answered. The patient was able to verbally demonstrate an understanding of their discharge medications. Patient counseled by pharmacy clinical specialist
--- NOTE | 2020-10-09 16:38 | CHAPLAIN ---
Type of Pastoral Visit _x__ Initial Visit ___ Follow-up Visit ___ On-call Visit ___ General Patient Visit ___ Spiritual Assessment ___ Family Conference ___ Bereavement ___ Rapid Response ___ Code Blue ___ Other (describe below) Pastoral Care Referral From _x__ Patient ___ Family _x__ Nurse ___ Physician ___ Mortgage Servicing Specialist ___ Alligator Shear Operator ___ Other (describe below) Sacrament/Intervention _x__ Active listening ___ Anointing ___ Pentecostalism ___ Bereavement ___ Communion _x__ Layla exploration ___ _x__ Life review _x__ Prayer ___ Reconciliation ___ Sacrament of Sick _x__ Supportive presence ___ Wedding ___ Other (describe below) Pastoral Comments patient admits to not only having discouraging news but being discouraged and doubtful in layla with God; listened to his spiritual and emotional concerns and questioning; pt admits holding in most of his feelings in order to be and look strong to family and others; pt gives life review and seeks spiritual support and prayer; time and presence given
--- NOTE | 2020-10-10 14:19 | CASEMGMT ---
Addendum entered by Jaja Mendieta 10/10/20 14:33: Pt called this RN SOHEILA back and pt states is 'doing ok' since discharge. Pt states 'I just need to get my eyesight back' and states has f/u with opthalmology. Pt states that he did go to OP dialysis yesterday after discharge. Pt states no suggestions for [facility] at this time. Pt voices no further questions/concerns/needs at this time. Glo RAMOS CM Original Note: RACHEL PARNELL Discharge F/U Phone Call LACE: 15 Strata: 4 Discharge date: 10/09/20 Call date: 10/10/20 Call time: 1421 Attempted to reach pt without success at this time, message left for pt to call this RACHEL PARNELL back if/when able. Glo RAMOS CM Admission dx: CVA
== END 2020-10-09 16:42 | disposition home or self-care (01) | DRG 123 ==
LOC: ED 19:27 → PCU 20:25
PROVIDERS: Student in an Organized Health Care Education/Training Program; Admitting Provider Internal Medicine; Emergency Provider Emergency Medicine; PCP Internal Medicine; Referring Provider Internal Medicine; Visit Provider Internal Medicine
DX: H34.12 Central retinal artery occlusion, left eye (principal); N18.6 End stage renal disease; I12.0 Hypertensive chronic kidney disease with stage 5 chronic kidney disease or end stage renal disease; N25.81 Secondary hyperparathyroidism of renal origin; Z68.41 Body mass index [BMI] 40.0-44.9, adult; E87.1 Hypo-osmolality and hyponatremia; Z99.2 Dependence on renal dialysis; D63.8 Anemia in other chronic diseases classified elsewhere; I48.0 Paroxysmal atrial fibrillation; E66.01 Morbid (severe) obesity due to excess calories; G47.33 Obstructive sleep apnea (adult) (pediatric); H91.93 Unspecified hearing loss, bilateral; M89.9 Disorder of bone, unspecified; R79.1 Abnormal coagulation profile; Z87.891 Personal history of nicotine dependence; I95.9 Hypotension, unspecified; Z86.16 Personal history of COVID-19
CPT/HCPCS: 36415; 70450; 70551; 71045; 80048; 80053; 80061; 82962; 84484; 85025; 85610; 85730; 87426; 90937; 92610; 93005; 93306; 93880; 94762; 97162; 97166; 97535; 99251; 99284; J7030; Q9957; A4216; C8929; G0257; G0463

== ENCOUNTER → 2020-10-11 10:10 | Outpatient (CLI) | payer MEDICARE, MEDICAID, SELFPAY ==
[2020-10-07 04:24] VITALS: BMI 42.0
[2020-10-11 12:37] LABS: International Normalized Ratio 1.9; Prothrombin Time (Protime)PT. 21.7 SECONDS (11.7-14.9)
== END ==
PROVIDERS: PCP Internal Medicine; Visit Provider Internal Medicine
DX: Z79.01 Long term (current) use of 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s (principal)
CPT/HCPCS: 36415; 85610

== ENCOUNTER 2020-12-21 20:25 | Emergency (ER) | payer MEDICARE, MEDICAID, SELFPAY ==
[2020-10-27 11:38] VITALS: BMI 43.3
[2020-12-21 20:26] VITALS: BP 102/65; PULSE 102; RESP 16; TEMP 36.8; O2SAT 99; BMI 40.1
--- NOTE | 2020-12-21 20:59 | EKG12_ITS ---
Test Reason : CP Blood Pressure : / mmHG Vent. Rate : 103 BPM Atrial Rate : 103 BPM P-R Int : 180 ms QRS Dur : 074 ms QT Int : 342 ms P-R-T Axes : 071 144 058 degrees QTc Int : 448 ms Sinus tachycardia Possible Left atrial enlargement Right axis deviation Septal infarct , age undetermined Abnormal ECG Confirmed by CHANDA STAHL, ZIA ([id number]), purchasing expeditor MARGARITO CHANDLER ([id number]) on 12/25/2020 1:26:09 PM Referred By: KRISTIN Confirmed By:LAUREN ARMAS MD
--- NOTE | 2020-12-21 20:59 | CT_ITS ---
EXAMINATION : Head CT w/out contrast HISTORY : Trauma COMPARISON : None. TECHNIQUE : Multiple contiguous axial images were obtained from the skull base to the vertex without intravenous contrast. A radiation dose optimization technique was used for this scan. FINDINGS : The ventricles and sulci are normal in size. There is no evidence for acute intracranial hemorrhage, mass effect, or midline shift. There is no extra-axial fluid collection. There is normal eduardo-white differentiation, without CT evidence of acute ischemia or infarct. The skull base and calvarium are unremarkable. The orbits are unremarkable. The paranasal sinuses are clear. The mastoid air cells are well-aerated. The soft tissues are unremarkable. CT/Brain/Head without Contrast IMPRESSION: No acute intracranial abnormality. Electronically Signed: Sagar Arrieta MD at 22:29 EDT Tel , Service support ,
--- NOTE | 2020-12-21 21:01 | CT_ITS ---
STUDY: CT ABDOMEN AND PELVIS WITH CONTRAST REASON FOR EXAM: Male, 40 years old. trauma, right sided pain -- TRAUMA ONLY: IV Contrast. Dont wait for creatinine RADIATION DOSAGE (If Supplied By Facility): CTDIvol = ( 40.57 ) mGy, DLP = ( 4670.85 ) mGycm TECHNIQUE: Transaxial images were obtained from the dome of the diaphragm to the symphysis pubis without oral contrast. IV 100mL Isovue-370 was administered. Sagittal and coronal images were reconstructed. Individualized dose optimization techniques were used for this CT. COMPARISON: CT of the chest dated December 21, 2020 FINDINGS: Extensive collateral varicose vessels seen in the body wall. Mild body wall edema. There are chronic interstitial fibrotic changes of the lung bases. No free air or free fluid. No demonstrated laceration of the solid organs. Normal liver. Normal gallbladder and extrahepatic biliary system. Normal spleen. Normal pancreas. Normal bilateral adrenal glands. There is mild cortical atrophy of the right kidney, consistent with chronic medical renal disease. There is mild cortical atrophy of the left kidney, consistent with chronic medical renal disease. Multiple cysts of both kidneys which do not require any additional imaging. Multiple punctate parenchymal calcifications are present bilaterally. No hydronephrosis is seen. Normal visualized stomach. Normal small intestine. Normal colon. The appendix is visualized and appears normal. There is diffuse atherosclerotic calcification of the abdominal aorta, without a demonstrated aneurysm. Normal inferior vena cava. Normal retroperitoneum. Normal urinary bladder. Normal abdominal wall. There are diffuse degenerative changes of the visualized lumbar spine. 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 Mild heterotopic ossification of the distal insertion of the rectus abdominis muscles on the pubic symphysis. 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 changes of the bony structures. CT/Abdomen/Pelvis WITH Contrast IMPRESSION: 1. No demonstrated acute or significant process of the abdomen and pelvis. 2. Chronic medical renal disease. Multiple cysts and tiny parenchymal calcifications of the kidneys. No hydronephrosis 3. 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 Mild heterotopic ossification of the distal insertion of the rectus abdominis muscles on the pubic symphysis. 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 changes of the bony structures. Electronically Signed: Ray Winter MD at 22:55 EDT , Service support ,
--- NOTE | 2020-12-21 21:01 | CT_ITS ---
STUDY: CT CHEST WITH CONTRAST REASON FOR EXAM: Male, 40 years old. chest pain, trauma -- TRAUMA ONLY: IV Contrast. Patient has hx of afib, multiple heart attacks,dialysis,HTN and stroke in eye. IV contrast administered through peripheral line in rt anterior chest RADIATION DOSAGE (If Supplied By Facility): CTDIvol = ( 40.56 ) mGy, DLP = ( 4670.85 ) mGycm TECHNIQUE: Transaxial imaging was performed following intravenous administration of IV 100mL Isovue-370. Individualized dose optimization techniques were used for this CT. COMPARISON: CTA of the chest dated June 10, 2020 FINDINGS: Significant collateral vessels seen in the body wall. Chronic periosteal reaction of the sternum likely due to overlying venous stasis or collateralization physiologic changes. No consolidation or pleural effusion is seen. Minor nodular scarring is present in the medial aspect of the left lower lobe, unchanged from the prior exam. There is no demonstrated pleural abnormality. Normal heart size and pericardium. Significant mitral valve calcifications. Normal mediastinum. Normal hilar regions. Normal enhanced pulmonary arteries. Normal aorta arch and descending thoracic aorta. There are multi-level degenerative changes of the thoracic spine. There is no demonstrated abnormality of the visualized upper abdomen. Tiny cysts seen in both kidneys requiring no additional imaging. CT/Chest WITH Contrast IMPRESSION: 1. No consolidation or pleural effusion is seen. Minor nodular scarring is present in the medial aspect of the left lower lobe, unchanged from the prior exam. Electronically Signed: Ray Winter MD at 22:46 EDT , Service support ,
--- NOTE | 2020-12-21 21:03 | RAD_ITS ---
STUDY: X-RAY - RIGHT SHOULDER REASON FOR EXAM: Male, 40 years old. FELL YESTERDAY. RIGHT SHOULDER PAIN. TECHNIQUE: 4 view(s) of the shoulder. COMPARISON: None. FINDINGS: There is severe degenerative arthrosis of the glenohumeral articulation. Normal acromioclavicular joint. Normal acromion. There is an enthesopathic erosion of the humeral head. The soft tissue structures are unremarkable. Percutaneous catheter seen in the upper arm region. No visualized acute fracture. Normal visualized pulmonary apex. 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
--- NOTE | 2020-12-21 21:10 | ED.DCSUM_ITS ---
History of Present Illness Chief Complaint: Fall Informant: Patient Onset: Yesterday Narrative: Patient is a 40-year-old male with history of end-stage renal disease on hemodialysis, PEs, hypertension, atrial fibrillation (on Coumadin) presenting from home for pain and evaluation after fall. Patient states he fell getting out of the shower yesterday. He states he tripped. He landed on his right side. He is not sure if he hit his head. He denies any loss of consciousness. He was able to get himself back up but is having pain on the right side. He states he has history of right shoulder problems but is now having more pain. He is having hard time moving his shoulder because of severe pain. He also has a large bruise over his right ribs and a bruise over his right hip. States has been having chest pain in the center of his chest since the fall. It does not radiate. He denies any shortness of breath at rest but does admit to some dyspnea on exertion that is new since the fall. Patient is not know the last time his INR was checked. He did have hemodialysis yesterday. He is due to have dialysis tomorrow. He denies he says he numbness or tingling. He states he has had blurry vision yesterday and this morning but that since resolved. He notes he had blood clot in his nose earlier today but has not had no further bleeding. He denies any other complaints at this time. He does not currently make urine. Past Medical History - Allergies and Home Meds Allergies/Adverse Reactions: Allergies No Known Allergies Allergy (Verified 12/21/20 20:26) Primary Care Physician: Pawel Banda MD [Primary Care Provider] - Past Medical History: - - End-stage renal disease, atrial fibrillation, coronary artery disease, hypertension, anemia of chronic disease, obstructive sleep apnea Surgical History: herniorrhaphy, - - Herniorrhaphy, aVF x2, catheter placements, right upper extremity aneurysm removal. Lives: With Family Smoking Status: Never smoker - Family History Paternal Family History: Family History (Last Reviewed 10/27/20 @ 13:[address] Nnamdi Moreno MD) Other Adopted Family History: Reports: - - Patient was adopted and does not know his maternal or paternal family history. Maternal Family History: Family History (Last Reviewed 10/27/20 @ 13:[address] Nnamdi Moreno MD) Other Adopted Family History: Reports: - - Patient was adopted and does not know his maternal or paternal family history. Review of Systems General: Denies: Chills, Fever, Sweats Eyes: Denies: Visual changes - bilaterally, Diplopia ENT: Denies: Bilateral ear pain, Rhinorrhea, Sore throat Cardiovascular: Reports: Chest pain. Denies: Palpitations Respiratory: Denies: Dyspnea, Cough, Dyspnea on exertion Gastrointestinal: Denies: Abdominal pain, Nausea, Vomiting, Diarrhea, Melena, Hematochezia Genitourinary: Denies: Dysuria, Hematuria, Frequency Musculoskeletal: Reports: Myalgias, Extremity Pain - Right shoulder, right hip. Denies: Back pain Skin: Reports: - - Ecchymosis to right ribs and right hip. Denies: Rash, Wounds Neurological: Denies: Headache, Weakness, Numbness Hematologic: Reports: Easy bruising, Easy bleeding Physical Exam Vital Signs/Narrative: Vital Signs Temp Pulse Resp BP Pulse Ox 12/21/20 20:26 98.3 F 102 H 16 102/65 99 Inital Vital Signs reviewed: Yes General: Well nourished, Well developed, Obese, No Acute Distress Head: Normocephalic, Atraumatic Eyes: Perrl, EOMI ENT: Moist mucous membranes, No rhinorrhea, TM's clear Neck: Supple, Nontender, No JVD Cardiovascular: Regular rate, Regular rhythm, No murmurs Respiratory: No distress, CTA bilaterally, Chest nontender Abdomen: Soft, Nontender, Nondistended, Normal bowel sounds. Negative for: Guarding, Rebound tenderness Back: Nontender, Normal Inspection Extremities: No edema, Tenderness - Right shoulder diffusely as well as right hip over the greater trochanter. Pain with range of motion of both joints. No obvious deformity. Skin: Normal color, No rash, Trauma - Hematoma over right lower ribs at midline, 9 cm x 7 cm. 3 cm x 3 cm hematoma over right hip Neurological: Alert, Oriented x3, Cranial nerves II-XII grossly intact, Normal Strength, Normal Sensation Psychological: Normal affect, Normal Mood Diagnostic/Tx/Re-eval Clinical Impression(s) from Imaging Studies Brain CT 12/21/20 20:59 IMPRESSION: No acute intracranial abnormality. Electronically Signed: Sagar Arrieta MD at 22:29 EDT Tel , Service support , Abdomen/Pelvis CT 12/21/20 21:01 IMPRESSION: 1. No demonstrated acute or significant process of the abdomen and pelvis. 2. Chronic medical renal disease. Multiple cysts and tiny parenchymal calcifications of the kidneys. No hydronephrosis 3. 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 Mild heterotopic ossification of the distal insertion of the rectus abdominis muscles on the pubic symphysis. 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 changes of the bony structures. Electronically Signed: Ray Winter MD at 22:55 EDT , Service support , Chest CT 12/21/20 21:01 IMPRESSION: 1. No consolidation or pleural effusion is seen. Minor nodular scarring is present in the medial aspect of the left lower lobe, unchanged from the prior exam. 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 No visualized acute fracture. 2. Renal osteodystrophy and related changes of the bony structures. Electronically Signed: Ray Winter MD at 22:49 EDT , Service support , Laboratory Data 12/21/20 12/21/20 12/21/20 21:25 21:25 21:25 WBC 6.0 RBC 3.91 L Hgb 11.7 L Hct 38.0 L MCV 97.2 H MCH 29.9 MCHC 30.8 L RDW Std Deviation 58.9 H RDW Coeff of Lance 16.5 H Plt Count 195 MPV 10.4 Immature Gran % (Auto) 0.500 Neut % (Auto) 60.7 Lymph % (Auto) 16.8 L Richardson % (Auto) 19.6 H Eos % (Auto) 1.7 Baso % (Auto) 0.7 Absolute Neuts (auto) 3.6 Absolute Lymphs (auto) 1.00 Nucleated RBC % 0 PT 30.1 H INR 3.0 Sodium 134 L Potassium 4.5 Chloride 95 L Carbon Dioxide 32.0 Anion Gap 7 BUN 38 H Creatinine 9.94 H* Estim Creat Clear Calc 10.40 Est GFR (MDRD) Af Amer 8 L Est GFR (MDRD) Non-Af 6 L BUN/Creatinine Ratio 3.8 L Glucose 91 Calcium 9.0 Total Bilirubin 0.40 Direct Bilirubin 0.16 AST 15 ALT 25 Alkaline Phosphatase 60 Troponin I 0.042 Total Protein 8.3 H Albumin 3.2 Globulin 5.1 H - Rhythm Strip Rhythm Strip: Sinus Tach Rate: 103 Ectopy: None - EKG Initial EKG Interpretation: Sinus Tachycardia, - - Sinus tachycardia at a rate of 103 Right axis deviation Normal intervals Normal ST segments Prior: Unchanged - Medical Decision Making Patient is evaluated for right-sided pain after a mechanical fall yesterday. Patient has contusions to his right ribs and his right hip. He has acute on chronic right shoulder pain. He had vision changes earlier but that resolved. Patient is on Coumadin. Limited trauma work-up is obtained including a head CT because of vision changes as well as a CT of the chest abdomen pelvis with IV contrast. Patient did not have good timing of the contrast but no acute traumatic process was seen on imaging. No acute abnormalities of the CT head. Plain films of the hip and elbow interpreted by myself as well as radiology show degenerative changes but no acute process. Patient's EKG and troponin are normal. No acute changes seen in the EKG. Symptoms have been present for a day and I do not think this is ACS. Patient is given 2 doses of morphine in the ER with improvement of his symptoms. As he does not have any acute traumatic fracture or major injury I do not think he requires a prescription for any pain medication. He is counseled to take Tylenol at home. Patient does have some hematomas and his INR is on the upper limit of normal, he is instructed to hold his Coumadin for 1 day and resume the day after tomorrow. Patient is likely sore from his fall. He is directed to follow-up with his primary care doctor. He is due for dialysis tomorrow which he is encouraged to keep especially as he did receive contrast today. Patient counseled on return precautions. He verbalized agreement understand this plan. He is discharged home in stable condition. ED Disposition - Plan for ED Patient: Disposition: Home or Assisted Living Diagnosis: Fall in shower, Contusion of chest wall with intact skin, Contusion of right hip Instructions: ED Hip Contusion, ED Chest Wall Contusion, ED Mechanical Fall Referrals: Pawel Banda MD [Primary Care Provider] - Additional Instructions: Please hold your Coumadin for 1 day. Your INR today was 3.0. You do have some bruising but no other acute injuries. No signs of acute fracture. Your heart appears normal today. Please follow-up with your primary care doctor and make sure you go to dialysis tomorrow. Your CT did show findings consistent with hyp erparathyroidism. Please follow-up with your primary care doctor for this.
[2020-12-21] MEDS: Morphine 4 MG/ML Syringe 6 MG IV (21:31)
[2020-12-21 21:37] LABS: Absolute Neutrophil Count 3.6 X10^3/uL (2.0-7.7); Basophil# 0.04 X10^3/uL; Basophil% 0.7 % (0-1); Eosinophils% 1.7 % (0-5); Hemoglobin 11.7 g/dL (13.0-16.5); Lymphocyte % 16.8 % (19-41); Mean Corp Hgb Conc 30.8 g/dL (32-36); Mean Corpuscular Hgb 29.9 pg (27.0-32.0); Mean Corpuscular Volume 97.2 fL (80-94); Mean Platelet Vol. 10.4 fl (6.2-12.0); Monocyte# 1.17 X10^3/uL; Monocyte% 19.6 % (0-10); NRBC Flagged by Analyzer 0 % (0-5); Neutrophil # 3.63 X10^3/uL (2.7-7.7); Neutrophil % 60.7 % (47-70); Platelet Count 195 K/mm3 (150-450); RBC Distribution Width CV 16.5 % (11.6-14.6); RBC Distribution Width SD 58.9 fl (35.1-43.9); Red Blood Count 3.91 M/mm3 (4.6-6.2)
[2020-12-21 21:47] LABS: Prothrombin Time (Protime)PT. 30.1 SECONDS (11.7-14.9)
--- NOTE | 2020-12-21 22:00 | RAD_ITS ---
STUDY: X-RAY - PELVIS AND RIGHT HIP REASON FOR EXAM: Male, 40 years old. pain, injury TECHNIQUE: 3 views of the pelvis and hip. COMPARISON: None. FINDINGS: There is a non-specific bowel gas pattern. Normal visualized soft tissue structures. Normal bilateral iliac wings, sacroiliac joints and visualized sacrum. Normal bilateral ischial tuberosities. Normal visualized femoral head. Normal acetabulum. Normal hip joint. Hypertrophic/physiologic calcinosis seen over the right pubic rami as well as mild osteolysis likely within the spectrum of renal osteodystrophy. No visualized acute fracture. No aggressive abnormality seen. Process and lucency of the osseous structures compatible with renal osteodystrophy. Atherosclerotic calcifications are present. Surgical clips are seen in the right upper thigh. RAD/HIP, UNI W/ Pelvis 2-3 Views IMPRESSION: 1. No visualized acute fracture. 2. Renal osteodystrophy and related changes of the bony structures. Electronically Signed: Ray Winter MD at 22:49 EDT , Service support ,
[2020-12-21 22:24] LABS: AST(SGOT) 15 U/L (15-37); Alanine Aminotransfer ALT/SGPT 25 U/L (16-61); Albumin, Serum 3.2 g/dL (3.2-5.0); Alkaline Phosphatase 60 U/L (45-117); Anion Gap 7 (5-15); BUN 38 mg/dL (7-18); BUN/Creat Ratio 3.8 RATIO (10-20); Bilirubin, Direct 0.16 mg/dL (0.00-0.30); Chloride 95 mmol/L (98-107); Creatinine, Serum 9.94 mg/dL (0.70-1.30); EST Glomerular Filtration Rate 6 mL/min (>60); Est Glom Filt Rate - Afr Amer 8 mL/min (>60); Globulin 5.1 g/dL (2.2-4.2); Glucose 91 mg/dL (74-106); Potassium 4.5 mmol/L (3.5-5.1); Protein, Total 8.3 g/dL (6.4-8.2); Sodium Level 134 mmol/L (136-145)
[2020-12-21] MEDS: morphine 8 MG/ML Syringe IV (22:27)
[2020-12-21 22:32] VITALS: BP 130/64; PULSE 88; RESP 14; O2SAT 100
[2020-12-21 23:33] VITALS: BP 110/78; PULSE 71; RESP 18; O2SAT 98
== END 2020-12-21 23:33 | disposition home or self-care (01) ==
PROVIDERS: Emergency Provider Emergency Medicine; PCP Internal Medicine
DX: S20.219A Contusion of unspecified front wall of thorax, initial encounter (principal); S70.01XA Contusion of right hip, initial encounter; I25.10 Atherosclerotic heart disease of native coronary artery without angina pectoris; N18.6 End stage renal disease; W18.2XXA Fall in (into) shower or empty bathtub, initial encounter; Z99.2 Dependence on renal dialysis; Z79.01 Long term (current) use of 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s
CPT/HCPCS: 70450; 71260; 73030; 73502; 74177; 80048; 80076; 84484; 85025; 85610; 93005; 96374; 96376; 99283; Q9967; A4216

== ENCOUNTER 2020-12-24 19:06 | Observation (INO) | payer MEDICARE, MEDICAID, SELFPAY ==
[2020-12-24 19:06] VITALS: BP 136/55; PULSE 94; RESP 22; TEMP 37.2; O2SAT 100; BMI 43.3
--- NOTE | 2020-12-24 19:12 | ED.RN ---
RN CALLED FOR EKG, PULLED OLD EKGS FOR
--- NOTE | 2020-12-24 19:20 | EKG12_ITS ---
Test Reason : CP ADMIT Blood Pressure : / mmHG Vent. Rate : 093 BPM Atrial Rate : 093 BPM P-R Int : 202 ms QRS Dur : 080 ms QT Int : 368 ms P-R-T Axes : 072 152 065 degrees QTc Int : 457 ms Normal sinus rhythm Septal infarct , age undetermined Abnormal ECG When compared with ECG of 21-DEC-2020 20:35, MANUAL COMPARISON REQUIRED, DATA IS UNCONFIRMED Confirmed by SALMA STAHL, JACOBY ([id number]), senior technical editor MARGARITO CHANDLER ([id number]) on 12/26/2020 10:49:40 AM Referred By: DR YU Confirmed By:JACOBY MARSH MD
[2020-12-24 19:40] VITALS: PULSE 93; RESP 22; O2SAT 98
[2020-12-24 19:50] LABS: Absolute Lymphocyte Count 0.75 X10^3/uL (0.83-4.51); Basophil# 0.02 X10^3/uL; Basophil% 0.3 % (0-1); Eosinophil# 0.27 X10^3/uL; Eosinophils% 4.3 % (0-5); Hematocrit 35.8 % (40-54); Hemoglobin 11.3 g/dL (13.0-16.5); Lymphocyte # 0.75 X10^3/ul (4.0); Mean Corp Hgb Conc 31.6 g/dL (32-36); Mean Corpuscular Hgb 30.5 pg (27.0-32.0); Mean Corpuscular Volume 96.5 fL (80-94); Mean Platelet Vol. 10.9 fl (6.2-12.0); Monocyte# 1.17 X10^3/uL; Monocyte% 18.7 % (0-10); NRBC Flagged by Analyzer 0 % (0-5); Neutrophil # 4.01 X10^3/uL (2.7-7.7); Neutrophil % 64.1 % (47-70); Platelet Count 174 K/mm3 (150-450); RBC Distribution Width CV 16.4 % (11.6-14.6); RBC Distribution Width SD 58.6 fl (35.1-43.9); Red Blood Count 3.71 M/mm3 (4.6-6.2); White Blood Count 6.3 K/mm3 (4.4-11.0)
--- NOTE | 2020-12-24 19:58 | ED.DCSUM_ITS ---
History of Present Illness Chief Complaint: Chest Pain Informant: Patient Narrative: Patient is a 40-year-old male with a past medical history of hypertension, end- stage renal disease on dialysis, atrial fibrillation on Coumadin who presents to the emergency department for left-sided chest pain. Patient was seen in the emergency department 2 days ago after he is sustained a fall 3 days ago. States he slipped getting out of the shower. He had a hematoma on his thigh and side. He did have chest pain at that time but has been progressively getting worse. He does not believe he hit his chest and does not relate this to trauma. He has been taking Tylenol which did not give him any relief. He does not know exacerbating factors for his chest pain including any pressure over the area, exerting himself or deep breaths. No associated shortness of breath. He denies any cough. He currently rates the pain as severe. It does not radiate. He is unable to describe the pain any better. No leg swelling or calf pain. No history of DVT/PE. His dialysis schedule is Friday/Friday/Friday. Past Medical History - Allergies and Home Meds Allergies/Adverse Reactions: Allergies No Known Allergies Allergy (Verified 12/21/20 20:26) Primary Care Physician: Pawel Banda MD [Primary Care Provider] - Prior records reviewed: Yes Surgical History: herniorrhaphy, - - Herniorrhaphy, aVF x2, catheter placements, right upper extremity aneurysm removal. Smoking Status: Never smoker - Family History Paternal Family History: Family History (Last Reviewed 10/27/20 @ 13:[address] Nnamdi Moreno MD) Other Adopted Family History: Reports: - - Patient was adopted and does not know his maternal or paternal family history. Maternal Family History: Family History (Last Reviewed 10/27/20 @ 13:[address] Nnamdi Moreno MD) Other Adopted Family History: Reports: - - Patient was adopted and does not know his maternal or paternal family history. Review of Systems All systems negative except as indicated General: Denies: Chills, Fever, Sweats Eyes: Denies: Visual changes - bilaterally, Diplopia ENT: Denies: Rhinorrhea, Sore throat Cardiovascular: Reports: Chest pain. Denies: Palpitations Respiratory: Denies: Dyspnea, Cough, Dyspnea on exertion Gastrointestinal: Denies: Abdominal pain, Nausea, Vomiting, Diarrhea Musculoskeletal: Denies: Back pain, Extremity Pain Skin: Denies: Rash, Wounds Neurological: Denies: Headache, Weakness, Numbness Hematologic: Reports: Easy bruising Physical Exam Vital Signs/Narrative: Vital Signs Temp Pulse Resp BP Pulse Ox 12/24/20 19:40 93 22 H 98 12/24/20 19:06 98.9 F 94 22 H 136/55 H 100 Inital Vital Signs reviewed: Yes General: Well nourished, Obese, No Acute Distress Head: Normocephalic, Atraumatic Eyes: Perrl, EOMI ENT: Moist mucous membranes, No rhinorrhea Neck: Supple, Nontender Cardiovascular: Regular rate, Regular rhythm, No murmurs Respiratory: No distress, CTA bilaterally, Chest nontender Abdomen: Soft, Nontender, Nondistended, Normal bowel sounds Back: Nontender, Normal Inspection Extremities: Nontender, No edema Skin: Normal color, No rash, Trauma - Large area of ecchymosis over right lateral flank Neurological: Alert, Oriented x3, Cranial nerves II-XII grossly intact, Normal Strength, Normal Sensation Psychological: Normal affect, Normal Mood Diagnostic/Tx/Re-eval - EKG Initial EKG Interpretation: - - Rate of 96 bpm and normal sinus rhythm. Prolonged IN interval with first-degree AV block. Otherwise no significant ST elevations or depressions. No T wave abnormalities. - Medical Decision Making Patient presents to the ED for left sided chest pain. Upon arrival to the emergency department vital signs within normal limits and he is in no acute distress. He was seen in the ED 2 days prior after a fall. He has been having chest pain since. EKG was obtained which did not show any signs of ischemia or arrhythmia. Will check chest x-ray as well as basic lab work. Patient complaining of severe pain and was given a [place] orally. Despite taking the [place] patient still having active pain. He does not believe that his chest pain is related to the trauma. Given his risk factors with the ESRD and hypertension will bring him into the hospital for cardiac work-up. His initial troponin is negative. His INR is therapeutic I have very low suspicion for DVT/PE. Low Concern for aortic catastrophe. I did offer hospitalization and he is agreeable with this plan. He otherwise has been stable throughout ED stay. ED Disposition - Plan for ED Patient: Referrals: Pawel Banda MD [Primary Care Provider] -
[2020-12-24] MEDS: HYDROcodone Bitartrate/Apap 5/325 Tablet PO (20:08)
--- NOTE | 2020-12-24 20:10 | RAD_ITS ---
STUDY: X-RAY CHEST REASON FOR EXAM: Male, 40 years old. chest pain TECHNIQUE: Frontal and lateral views of the chest. COMPARISON: 10/06/2020. FINDINGS: Increased density seen in both lower lung page, especially the right most likely related to overlying soft tissue density rather than infiltrates or effusions. Normal size heart. Normal mediastinum and michael. Normal visualized pulmonary arteries. Normal visualized aortic arch and descending thoracic aorta. There is a dextroscoliosis of the thoracic spine. Normal visualized ribs, clavicles, and shoulders. There is no demonstrated abnormality of the visualized soft tissue structures of the upper abdomen. RAD/Chest PA and Lateral IMPRESSION: No definite acute chest disease. Electronically Signed: Yosef Vinson MD at 21:04 EDT , Service support ,
[2020-12-24 20:16] LABS: Prothrombin Time (Protime)PT. 30.2 SECONDS (11.7-14.9)
[2020-12-24 20:17] LABS: Anion Gap 10 (5-15); BUN 56 mg/dL (7-18); BUN/Creat Ratio 4.8 RATIO (10-20); Calcium,Total 9.4 mg/dL (8.5-10.1); Chloride 96 mmol/L (98-107); EST Glomerular Filtration Rate 5 mL/min (>60); Est Glom Filt Rate - Afr Amer 6 mL/min (>60); Estimated Creatinine Clearance 8.84 ml/min; Glucose 91 mg/dL (74-106); Sodium Level 134 mmol/L (136-145)
--- NOTE | 2020-12-24 21:21 | HP.PCM_ITS ---
Problem List (1) Chest pain Status: Acute Qualifiers: Chest pain type: unspecified Qualified Code(s): R07.9 - Chest pain, unspecified (2) Paroxysmal atrial fibrillation Status: Chronic Comment: 06/10/2020 (3) Bilateral carotid artery stenosis Status: Chronic Comment: Calcific plaque with shadowing at the proximal right internal carotid artery with 50 to 69% stenosis and Intimal thickening left proximal internal carotid artery however with flow velocity located throughout the left common carotid and internal carotid artery of undetermined etiology. 50 to 69% stenosis left proximal internal carotid artery U/s 10/09/2020 (4) Essential (primary) hypertension Status: Chronic (5) ESRD on hemodialysis Status: Chronic (6) Anemia of chronic disorder Status: Chronic (7) Morbidly obese Status: Chronic (8) Obstructive sleep apnea Status: Chronic History of Present Illness Date of Admission: 12/24/20 Chief Complaint: Intractable chest pain s/p fall onto chest 3 days prior. The patient is a 40 y/o M w/ PMHx: ESRD on HD, PAF on Coumadin, HTN, HLD, Morbid obesity, YEIMY, Hx VTE (PE, DVT on coumadin), Carotid disease, AOCD/Chronic anemia who presents to the [facility] ED on 12/24/20 with history of ongoing left-sided chest pain, described as pressure-like sensation, initially intermittent lasting only seconds but eventual progressing to constant on day of ED presentation, rated initially mild 2-3/10, but no 67/10 in severity. He notes his started following a fall 3 days prior to current presentation at which time he had slipped getting of the shower with a noted hematoma on his thigh but denies any chest pain from the fall secondary to a specific injury prompting ED return, does not worsen with exertion with self treatment with IBU. Work-up in the ED included T 98.9, heart rate 94, BP 136/55, respiratory rate 22, on her percent on room air, CBC with WC 6.3, hemoglobin 0.3, platelet 174 with lymphopenia, coags with INR 3.0, BMP with sodium 134, chloride 96, BUN/56/11.70, troponin less than 0.015, chest x-ray with no acute cardiopulmonary findings, EKG with sinus rhythm with first- degree AV block with no acute evidence of ischemia. In the ED patient ministered [place] 1 tablet x 1. Past Medical History Past Medical History (Chronic Problems): Chronic Problems (Last Reviewed 10/27/20 @ 13:[address] 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 50 to 69% stenosis left proximal internal carotid artery U/s 10/09/2020 Essential (primary) hypertension (Chronic) Unspecified symptoms and signs involving cognitive functions and awareness (Chronic 04/05/20) CVA ruled out ESRD on hemodialysis (Chronic) Anemia of chronic disorder (Chronic) Morbidly obese (Chronic) Non compliance w medication regimen (Chronic) Obstructive sleep apnea (Chronic) Medical History: Medical History (Last Reviewed 10/27/20 @ 13:[address] 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 09/2020 Nonrheumatic mitral valve stenosis with insufficiency (Chronic) I34.2, I34.0 Atrial flutter with rapid ventricular response (Chronic) Onset Date: 07/2020 I48.92 11/2018, 07/2020 Paroxysmal atrial fibrillation (Chronic) Onset Date: 06/10/20 I48.0 06/10/2020 Paroxysmal junctional tachycardia (Chronic) Onset Date: 08/2018 I47.1 04/2018 History of non-ST elevation myocardial infarction (NSTEMI) (Resolved) Onset Date: 11/08/19 I25.2 09/13/2018, 03/03/2019, 11/08/2019 Bilateral carotid artery stenosis (Chronic) I65.23 Calcific plaque with shadowing at the proximal right internal carotid artery with 50 to 69% stenosis and Intimal thickening left proximal internal carotid artery however with flow velocity located throughout the left common carotid and internal carotid artery of undetermined etiology. 50 to 69% stenosis left proximal internal carotid artery U/s 10/09/2020 Essential (primary) hypertension (Chronic) I10 Unspecified symptoms and signs involving cognitive functions and awareness (Chronic) Onset Date: 04/05/20 R41.9 CVA ruled out COVID-19 virus detected (Resolved) Onset Date: 03/20/20 U07.1 ESRD on hemodialysis (Chronic) N18.6, Z99.2 Anemia of chronic disorder (Chronic) D63.8 Morbidly obese (Chronic) E66.01 Non compliance w medication regimen (Chronic) Z91.14 Obstructive sleep apnea (Chronic) G47.33 Chronic kidney disease-mineral and bone disorder N18.9, E83.9, M89.9 Chronic pelvic pain in male R10.2, G89.29 Dialysis patient Z99.2 Hearing loss H91.90 in both ears History of venous thromboembolism Z86.718 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 due to renal insufficiency N25.81 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 M41.9 Mechanical complication of arteriovenous fistula surgically created T82.590A Bilaterally Pelvic mass R19.00 Expressive aphasia Onset Date: 04/05/20 R47.01 Hematuria (Resolved) R31.9 History of bacterial endocarditis Z86.79 History of pulmonary embolus (PE) Z86.711 History of blood clots (Inactive) Z86.718 fistula developed a clot and had to be surgically removed Allergies No Known Allergies Allergy (Verified 12/21/20 20:26) Home Medications: Ambulatory Orders Medication Instructions Recorded Ferric Citrate [Auryxia] 630 mg PO TIDCM 02/05/19 amiodarone 400 mg tablet 400 mg PO BID 09/25/20 Warfarin [Coumadin] 5 mg PO DAILY 10/06/20 Brimonidine Tartrate 0.2% 1 drp LEFT EYE TID #1 bottle 10/09/20 [Brimonidine 0.2% 5Ml Bottle] Surgical History: Surgical History (Last Reviewed 10/27/20 @ 13:[address] Nnamdi Moreno MD) History of cardioversion Onset Date: 12/02/18 Z98.890 In ER 12/02/2018 History of herniorrhaphy Z98.890, Z87.19 History of left heart catheterization Onset Date: 09/17/18 Z98.890 History of repair of congenital cleft palate Z87.730 Mechanical complication of dialysis catheter T82.49XA Status post creation of arteriovenous fistula Z98.890 left 08/30/2012, right? history of cather replacement Left Groin 04/21/19 Surgical History: herniorrhaphy, - - Herniorrhaphy, aVF x2, catheter placements, right upper extremity aneurysm removal. Psychiatric History: No pertinent psych hx Lives: Spouse/ Significant Other Smoking Status: Never smoker Tobacco Use: Non-smoker Alcohol: None Drugs: None - *Family History Paternal Family History: Family History (Last Reviewed 10/27/20 @ 13:[address] Nnamdi Moreno MD) Other Adopted History Items: - - Patient was adopted and does not know his maternal or paternal family history. Maternal Family History: Family History (Last Reviewed 10/27/20 @ 13:[address] Nnamdi Moreno MD) Other Adopted History Items: - - Patient was adopted and does not know his maternal or paternal family history. Review of Systems Constitutional: Reports: Fatigue. Denies: Anorexia, Chills, Fever, Malaise, Weakness, Weight Change HEENT: Denies: Head Aches, Sinus Congestion, Sinus Drainage Cardiovascular: Reports: Chest Pain, Chest Pressure. Denies: Light Headedness, Orthopnea, Palpitations, Syncope Respiratory: Denies: Cough, Shortness of Breath, Shortness of breath at rest, Shortness of breath upon exertion, Sputum production Gastrointestinal: Denies: Abdominal Pain, Nausea, Vomiting Genitourinary: Denies: Dysuria Musculoskeletal: Reports: Back Pain, Joint Pain, Leg Pain. Denies: Joint Tenderness Skin: Denies: Rash, Wounds Neurological: Denies: Numbness, Tingling, Focal weakness Psychiatric: Denies: Anxiety, Depression, Homicidal Ideations, Suicidal Ideations Hematologic/ Lymphatic: Reports: Anemia, Easy Bruising, Easy Bleeding VTE Information - Inpt Only VTE Present on Admission: No VTE Mechan Device Prophylaxis: SCD's VTE Pharm Prophylaxis ordered?: No Reason prophylaxis not ordered:: Treatment Not Indicated - Continue home coumadin w/ INR trending. Patient Problems: Active and Suspected Problems (Last Reviewed 10/27/20 @ 13:[address] Nnamdi Moreno MD) Chest pain (Acute) Subjective: Patient laying in the ED bed, no acute distress but still notes he is having ongoing continuous severe pain to the left side of the chest. Objective: Physical Examination: General: awake, alert, oriented x 3 and cooperative, seated upright in the ED bed in no apparent distress but reporting ongoing severe chest pain. Skin: normal color, turgor, no icterus, cyanosis except noted recent fall onto the right flank and right thigh with notable ecchymoses. HEENT: AT/NC, EOMI, PERRLA, mildly dry MM, no carotid bruits despite history of bilateral carotid disease or JVD noted; however, thickened neck makes examination very difficult. Lungs: Diminished breath sounds, greater bases, moderate effort, no rales, ronchi or wheezing. Heart: Regular rate and rhythm; no gallop, rub audible. Abdomen: soft, morbidly obese, NTTP, no obvious distention but habitus makes exam difficult, normal BS, unable to discern HSM secondary to habitus. Extremities: no cyanosis or clubbing, mild swelling and staged ecchymoses to the right lateral thigh status post fall, see skin, AVF. Neurological: patient awake, alert, oriented as noted; cognitive function in tact; pupils equally reactive to light and accomodation; cranial nerves II-XII grossly normal, moving all 4 extremities, no focal deficits, strength mildly global decrease secondary to acute complaints. Psychiatric: affect appears normal, no acute evidence of depressive or anxiety feelings. - Physical Exam Vitals/I&O's: Vital Signs Temp Pulse Resp BP Pulse Ox 98.9 F 93 22 H 136/55 H 98 12/24/20 19:06 12/24/20 19:40 12/24/20 19:40 12/24/20 19:06 12/24/20 19:40 Oxygen Delivery Method Room Air Weight: 302 lb Body Mass Index (BMI) 43.3 Finger Stick Blood Glucose 80 Laboratory Results 12/24/20 19:40: WBC 6.3, RBC 3.71 L, Hgb 11.3 L, Hct 35.8 L, MCV 96.5 H, MCH 30.5, MCHC 31.6 L, RDW Std Deviation 58.6 H, RDW Coeff of Lance 16.4 H, Plt Count 174, MPV 10.9, Immature Gran % (Auto) 0.600, Neut % (Auto) 64.1, Lymph % (Auto) 12.0 L, [place] % (Auto) 18.7 H, Eos % (Auto) 4.3, Baso % (Auto) 0.3, Absolute Neuts (auto) 4.0, Absolute Lymphs (auto) 0.75 L, Nucleated RBC % 0 12/24/20 19:40: Sodium 134 L, Potassium 5.0, Chloride 96 L, Carbon Dioxide 28.0, Anion Gap 10, BUN 56 H, Creatinine 11.70 H*, Estim Creat Clear Calc 8.84, Est GFR (MDRD) Af Amer 6 L, Est GFR (MDRD) Non-Af 5 L, BUN/Creatinine Ratio 4.8 L, Glucose 91, Calcium 9.4, Troponin I < 0.015 12/24/20 19:40: PT 30.2 H, INR 3.0 Assessment/Plan All Active Problems (Last Reviewed 10/27/20 @ 13:[address] Nnamdi Moreno MD) Chest pain (Acute) Central retinal artery occlusion of left eye (Acute 10/09/20) Blind left eye (Acute 10/09/20) History of non-ST elevation myocardial infarction (NSTEMI) (Resolved 11/08/19) COVID-19 virus detected (Resolved 03/20/20) Chest pain (Resolved) Hematuria (Resolved) The patient is a 40 y/o M w/ PMHx: ESRD on HD, PAF on Coumadin, HTN, HLD, Morbid obesity, YEIMY, Hx VTE (PE, DVT on coumadin), Carotid disease, AOCD/Chronic anemia who presents to the [facility] ED on 12/24/20 with history of ongoing left-sided chest pain following a fall 3 days prior to current presentation at which time he had slipped getting of the shower with a noted hematoma on his thigh but denies any chest pain from the fall but has had ongoing chest pain, L sided, non-radiating, constant prompting ED return. 1. Intractable chest pain, atypical: EKG in ED with sinus rhythm with no acute evidence of ischemia with first-degree AVB, CXR w/ no acute cardiopulmonary findings, initial trop less than 0.015. Will admit to PCU to be cautious given notable medical history, denies pain following any related injury with recent fall, will place on a monitored bed to assure no acute myocardial infarction with serial cardiac enzymes and EKGs. If enzymes and repeat EKGs remain unremarkable will obtain AM stress testing. Patient did have CT of his chest abdomen as well as brain on 12/21/2020 following his fall and there were no acute findings at that time. Per review of records patient with recent echocardiogram 10/06/2020 with stage II diastolic dysfunction, LV systolic function hyperdynamic, EF 65%, moderate focal MV thickening, mild MV stenosis, moderate MVI, moderately enlarged LA, moderate TVI, mild pulmonary hypertension. 09/17/2018 cardiac catheterization most recently noted with normal coronaries at that time with reported reversible distal LCx spasm corrected with IC NTG with recommended indefinite aspirin, recommended Cardizem CD 120 p.o. daily for coronary's vasospasms and tachycardia at that time. Given #2 will defer adding ASA, coumadin w/ appropriate INR. If enzymes rise may add ASA. Still lower suspicion for cardiac etiology, given onset with fall, suspect still MS etiology. NG, morphine. 2. Mechanical Fall with R Flank and Thigh Trauma: Continue to closely monitor especially given coumadin, continue to trend INR, pain regimen for #1 as noted, denies chest pain secondary to any chest trauma with fall, did hurt flank but pain in different region. 3 chronic anemia/AOCD: Admission hemoglobin 11.3, stable, continue to trend. 4. ESRD: We will consult nephrology (Dr. Melendez), continue patient usual home HD regimen Friday, Friday, Friday. 5. PAF: Will continue patient home amiodarone, coumadin with INR trending. 6. Morbid Obesity: Weight loss and lifestyle changes encouraged. 7. Carotid disease: Reported carotid disease, continued on Coumadin with INR trending, not on statin therapy nor hypertensive regimen, encourage continued outpatient monitoring with his vascular surgeon/PCP. 8. Hypertension: Patient BP upon ED presentation normal range, no current regimen listed, will clarify, as needed IV hydralazine. 9. Hyperlipidemia: Not on statin therapy, will clarify regimen listed. 10. YEIMY: CPAP nightly. 11. History of VTE: Patient with history of both PE and DVT, will continue Coumadin with INR trending. 12. DVT Prophylaxis: SCDs, continue home coumadin w/ INR trending. OBSV E&M: 37360 Initial observation care L3
[2020-12-24 21:33] VITALS: BP 84/47; PULSE 99; RESP 21; RESP 27; TEMP 36.8; O2SAT 100; O2SAT 97
[2020-12-24 22:02] VITALS: BMI 43.5
[2020-12-24 22:04] VITALS: BP 106/63; PULSE 97; RESP 18; TEMP 36.9; O2SAT 100
[2020-12-24 22:05] VITALS: O2SAT 100
[2020-12-24 22:08] VITALS: PULSE 94
[2020-12-24 22:12] VITALS: BMI 43.4
[2020-12-24] MEDS: BRIMONIDINE 0.2% 5ML BOTTLE 1 DRP LEFT EYE (23:00)
--- NOTE | 2020-12-24 23:10 | NURSING ---
Pt complaining of 7 out of 10 chest pain. Pt refusing nitro at this time saying it does not help at all. Pt asked what else was ordered for pain. RN explained that he had prn oxycodone and morphine. Pt stated that he wanted to eat first and then see if he wants anything for pain. RN tried to educate pt about chest pain and nitro is what we give. Pt still refused nitro at this time. notified.
[2020-12-24 23:18] LABS: Magnesium 2.4 mg/dL (1.6-2.6)
--- NOTE | 2020-12-24 23:28 | EKG12_ITS ---
Test Reason : CP Blood Pressure : / mmHG Vent. Rate : 096 BPM Atrial Rate : 096 BPM P-R Int : 212 ms QRS Dur : 084 ms QT Int : 358 ms P-R-T Axes : 078 137 072 degrees QTc Int : 452 ms Sinus rhythm with 1st degree A-V block Right axis deviation Low voltage QRS Poor R wave progression Abnormal ECG Confirmed by ADALGISA STAHL, GOGO ([id number]), desk editor MARGARITO CHANDLER ([id number]) on 12/28/2020 9:28:55 AM Referred By: VENUS Confirmed By:GOGO DIANA MD
[2020-12-25] VITALS (12 sets, daily range): BP systolic 91–121; BP diastolic 47–79; PULSE 88–98; RESP 16–18; TEMP 36.4–37.2; O2SAT 96–100
[2020-12-25] MEDS: Morphine 2 MG/ML Syringe IV (00:22)
[2020-12-25] MEDS: 0.9% Saline Lock 10 ML Syringe IV (00:22)
[2020-12-25 01:53] LABS: Absolute Lymphocyte Count 0.81 X10^3/uL (0.83-4.51); Absolute Neutrophil Count 3.4 X10^3/uL (2.0-7.7); Basophil# 0.02 X10^3/uL; Basophil% 0.4 % (0-1); Eosinophil# 0.21 X10^3/uL; Eosinophils% 4.2 % (0-5); Hematocrit 31.8 % (40-54); Hemoglobin 9.9 g/dL (13.0-16.5); Lymphocyte # 0.81 X10^3/ul (4.0); Mean Corp Hgb Conc 31.1 g/dL (32-36); Mean Corpuscular Hgb 30.3 pg (27.0-32.0); Mean Corpuscular Volume 97.2 fL (80-94); Mean Platelet Vol. 10.4 fl (6.2-12.0); Monocyte# 0.62 X10^3/uL; Monocyte% 12.3 % (0-10); NRBC Flagged by Analyzer 0 % (0-5); Neutrophil # 3.36 X10^3/uL (2.7-7.7); Neutrophil % 66.5 % (47-70); Platelet Count 169 K/mm3 (150-450); RBC Distribution Width CV 16.2 % (11.6-14.6); RBC Distribution Width SD 57.9 fl (35.1-43.9); Red Blood Count 3.27 M/mm3 (4.6-6.2); White Blood Count 5.1 K/mm3 (4.4-11.0)
[2020-12-25 02:02] LABS: International Normalized Ratio 3.1; Prothrombin Time (Protime)PT. 30.8 SECONDS (11.7-14.9)
[2020-12-25 02:21] LABS: ALB/GLOB Ratio 0.6 RATIO (0.9-2.4); AST(SGOT) 11 U/L (15-37); Alanine Aminotransfer ALT/SGPT 16 U/L (16-61); Albumin, Serum 2.8 g/dL (3.2-5.0); Alkaline Phosphatase 53 U/L (45-117); Anion Gap 11 (5-15); BUN 59 mg/dL (7-18); BUN/Creat Ratio 4.8 RATIO (10-20); Calcium,Total 8.8 mg/dL (8.5-10.1); Chloride 98 mmol/L (98-107); Cholesterol 163 mg/dL (200); EST Glomerular Filtration Rate 5 mL/min (>60); Est Glom Filt Rate - Afr Amer 6 mL/min (>60); Estimated Creatinine Clearance 8.48 ml/min; Globulin 4.4 g/dL (2.2-4.2); Glucose 106 mg/dL (74-106); High Density Lipoprotein 47 mg/dL; Potassium 4.7 mmol/L (3.5-5.1); Protein, Total 7.2 g/dL (6.4-8.2); Sodium Level 134 mmol/L (136-145); Triglycerides 76 mg/dL; Very Low Density Lipoprotein 15 mg/dL (5-40)
--- NOTE | 2020-12-25 05:33 | EKG12_ITS ---
Test Reason : AM EKG Blood Pressure : / mmHG Vent. Rate : 088 BPM Atrial Rate : 088 BPM P-R Int : 212 ms QRS Dur : 074 ms QT Int : 378 ms P-R-T Axes : 075 142 052 degrees QTc Int : 457 ms Sinus rhythm with 1st degree A-V block Low voltage QRS Borderline ECG When compared with ECG of 24-DEC-2020 23:05, MANUAL COMPARISON REQUIRED, DATA IS UNCONFIRMED Confirmed by SALMA STAHL, JACOBY ([id number]), state editor MARGARITO CHANDLER ([id number]) on 12/26/2020 10:48:43 AM Referred By: DR YU Confirmed By:JACOBY MARSH MD
[2020-12-25] MEDS: BRIMONIDINE 0.2% 5ML BOTTLE 1 DRP LEFT EYE ×2 (06:50→14:54)
[2020-12-25] MEDS: Amiodarone 200 MG Tablet 400 MG PO (08:43)
--- NOTE | 2020-12-25 11:06 | STRESSREP ---
Stress Test Report Pharmacologic myocardial perfusion stress test. 40-year-old male with a history of normal coronary arteries, hypertension, chronic renal failure. Stress protocol: Resting EKG demonstrates normal sinus rhythm with a rate of 85 bpm normal intervals are noted resting blood pressure is 104/60 mmHg. 0.4 mg of regadenoson was infused per usual protocol followed by rapid intravenous saline flush injection continuous EKG monitoring was performed. The maximum heart rate attained was 103 bpm which was 56% of max predicted heart rate the maximum workload was 1 metabolic equivalent. At rest there were no ST or T wave changes noted to suggest abnormal flow reserve and at peak infusion no ST or T wave changes were noted to suggest abnormal flow reserve. The patient complained of chest pain throughout the infusion. The final blood pressure was 94/60 mmHg. Myocardial perfusion protocol. 15.0 mCi of technetium 99m sestamibi was injected at rest. 0.4 mg of regadenoson was infused per usual protocol. At peak infusion 44.6 mCi of technetium 99m sestamibi was injected stress images were obtained stress and rest images were reconstructed and compared in the short axis vertical long and horizontal long axis. Gated images were also obtained. Perfusion SPECT analysis: Review of the stress images demonstrate normal uptake of tracer noted in all areas of the myocardium except for the apex. The resting images similarly demonstrate normal uptake of tracer noted in all areas of the myocardium except for the apex. The above is suggestive of a previous apical infarct, hyperdynamic contractility with apical thinning. No obvious ischemia is noted. Gated SPECT analysis: The gated ejection fraction is over 80%. Conclusion: Normal pharmacologic myocardial perfusion stress test. Apical thinning noted.
--- NOTE | 2020-12-25 11:52 | DCINST_ITS ---
- Discharge Diagnoses Current Active Problems: Current Active and Chronic Problems (Last Reviewed 10/27/20 @ 13:[address] Nnamdi Moreno MD) Chest pain (Acute) Paroxysmal atrial fibrillation (Chronic 06/10/20) 06/10/2020 Bilateral carotid artery stenosis (Chronic) Calcific plaque with shadowing at the proximal right internal carotid artery with 50 to 69% stenosis and Intimal thickening left proximal internal carotid artery however with flow velocity located throughout the left common carotid and internal carotid artery of undetermined etiology. 50 to 69% stenosis left proximal internal carotid artery U/s 10/09/2020 Essential (primary) hypertension (Chronic) ESRD on hemodialysis (Chronic) Anemia of chronic disorder (Chronic) Morbidly obese (Chronic) Obstructive sleep apnea (Chronic) Reason(s) for Visit for Discharge Instructions: Chest pain You will use the following diet at home:: Renal (restricted protein/sodium) Your food should be the consistency of: Regular Your liquids should be the consistency of: Regular/Thin Discharge Activity: Return to Normal Activity Additional Instructions: Continue to take Tylenol as needed for chest pain. You can apply some warm compresses to your left chest and some topical analgesic to your left side of cheats as needed. Allergies/Adverse Reactions: Allergies No Known Allergies Allergy (Verified 12/21/20 20:26) Medications to take at Discharge Ferric Citrate [Auryxia] 630 mg PO TIDCM 02/05/19 amiodarone 400 mg tablet 400 mg PO DAILY 09/25/20 Warfarin [Coumadin] 5 mg PO DAILY 10/06/20 Brimonidine Tartrate 0.2% [Brimonidine 0.2% 5Ml Bottle] 1 drp LEFT EYE TID #1 bottle 10/09/20 Acetaminophen [Tylenol Tablet] 650 mg PO Q6H PRN PRN tablet 12/25/20 Primary Care Physician: Pawel Banda MD [Primary Care Provider] - Please follow up with your Primary Care Physician in: within 1-2 weeks Test Results: Test results from this visit will be discussed in further detail at your follow- up appointment, if applicable. Please Follow Up With: Tameka Melendez MD When: as scheduled Proposed Discharge Date: 12/25/20
--- NOTE | 2020-12-25 12:11 | PCM.DC.SUM ---
Discharge Date and Diagnosis - Problem List Patient Problems: Active and Suspected Problems (Last Reviewed 10/27/20 @ 13:[address] Nnamdi Moreno MD) Chest pain (Acute) Date of Admission: 12/24/20 Date of Discharge: 12/25/20 - Primary Discharge Diagnosis Acute Problems: Active Problems (Last Reviewed 10/27/20 @ 13:[address] Nnamdi Moreno MD) Chest pain (Acute) Orthostatic hypotension - Secondary Discharge Diagnosis Chronic Problems: Chronic Problems (Last Reviewed 10/27/20 @ 13:[address] 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 50 to 69% stenosis left proximal internal carotid artery U/s 10/09/2020 Essential (primary) hypertension (Chronic) Unspecified symptoms and signs involving cognitive functions and awareness (Chronic 04/05/20) CVA ruled out ESRD on hemodialysis (Chronic) Anemia of chronic disorder (Chronic) Morbidly obese (Chronic) Non compliance w medication regimen (Chronic) Obstructive sleep apnea (Chronic) Hospital Course and Treatment Imaging Results: 12/25/20 05:55 Nuclear Stress Test - Chemical [NM] AM (NON MEDS) Operations: None Procedures: Stress test Summary of Care Provided: The patient is a 40 year old M with past medical history of ESRD on hemodialysis, recent history of central retinal artery occlusion, who comes in with complaints of chest pain. It was seen earlier on in the emergency department 3 days prior after he slipped was getting out of the shower. Assessment in the ED at that time showed hematoma on his thigh and chest wall. There were no evidence of fracture. Patient presents with left-sided chest pain, that was described as dull versus burning, mostly in the left side of the chest, not worse with movement, nothing makes it better, nothing makes it worse. Initial chest x-ray was unremarkable. EKG shows normal sinus rhythm with first-degree AV block with no evidence of ST-T changes. Patient was admitted to the telemetry floor and monitored on telemetry. No acute events overnight. His troponins were negative. He had a stress test that was unremarkable. Reexamination of the patient revealed left-sided, precordial tenderness, worse with the left lower parasternal region, reproducible. Patient was encouraged to take Tylenol as needed for pain as well as apply topical analgesics. Patient also gave a history of recently over the past 2 months having episodes where his blood pressure drops. He gives a history of having these during dialysis and also sometimes at home and when driving. Repeat orthostatic vitals were positive. Discussed with nephrology, patient apparently has been having less fluid pulled out in dialysis. He was taking off his blood pressure medications. He still remains hypotensive especially on dialysis. It was decided that patient should be started on midodrine 5 mg p.o. 3 times daily. I stressed to patient that until his blood pressures stop dropping and he remains normotensive, he should not be driving. He voiced understanding. Patient Problems: Active and Suspected Problems (Last Reviewed 10/27/20 @ 13:[address] Nnamdi Moreno MD) Chest pain (Acute) Subjective: On the day of discharge, patient was seen and examined. Stress test was negative. He complained of some left-sided chest pain that was reproducible at the left parasternal region.. He had dialysis before discharge. Objective: Physical exam: GEN: Alert, oriented x3, obese, not pale, not jaundiced, mildly dehydrated CVS: HS I +II, regular, no murmurs, mild left sided chest wall tenderness RESP: CTA ABD: BS present, soft, non-tender, no palpable organs EXT: No edema - Physical Exam Vitals/I&O's: Vital Signs Temp Pulse Resp BP Pulse Ox 98.2 F 90 18 111/68 99 12/25/20 10:47 12/25/20 10:47 12/25/20 10:47 12/25/20 10:47 12/25/20 11:25 Oxygen Flow Rate (L/min) 2 Oxygen Delivery Method Nasal Cannula Weight: 138.3 kg Body Mass Index (BMI) 43.4 Finger Stick Blood Glucose 80 Intake and Output for Last 24 Hours 03/27/21 03/28/21 03/29/21 23:59 23:59 23:59 Intake Total 440 / 440 0 / 0 Balance 440 / 440 0 / 0 Laboratory Results 12/24/20 19:40: WBC 6.3, RBC 3.71 L, Hgb 11.3 L, Hct 35.8 L, MCV 96.5 H, MCH 30.5, MCHC 31.6 L, RDW Std Deviation 58.6 H, RDW Coeff of Lance 16.4 H, Plt Count 174, MPV 10.9, Immature Gran % (Auto) 0.600, Neut % (Auto) 64.1, Lymph % (Auto) 12.0 L, [place] % (Auto) 18.7 H, Eos % (Auto) 4.3, Baso % (Auto) 0.3, Absolute Neuts (auto) 4.0, Absolute Lymphs (auto) 0.75 L, Nucleated RBC % 0 12/24/20 19:40: Sodium 134 L, Potassium 5.0, Chloride 96 L, Carbon Dioxide 28.0, Anion Gap 10, BUN 56 H, Creatinine 11.70 H*, Estim Creat Clear Calc 8.84, Est GFR (MDRD) Af Amer 6 L, Est GFR (MDRD) Non-Af 5 L, BUN/Creatinine Ratio 4.8 L, Glucose 91, Calcium 9.4, Troponin I < 0.015 12/24/20 19:40: PT 30.2 H, INR 3.0 12/24/20 22:55: Magnesium 2.4, Troponin I < 0.015 12/25/20 01:46: Troponin I < 0.015 12/25/20 01:46: WBC 5.1, RBC 3.27 L, Hgb 9.9 L, Hct 31.8 L, MCV 97.2 H, MCH 30.3, MCHC 31.1 L, RDW Std Deviation 57.9 H, RDW Coeff of Lance 16.2 H, Plt Count 169, MPV 10.4, Immature Gran % (Auto) 0.600, Neut % (Auto) 66.5, Lymph % (Auto) 16.0 L, [place] % (Auto) 12.3 H, Eos % (Auto) 4.2, Baso % (Auto) 0.4, Absolute Neuts (auto) 3.4, Absolute Lymphs (auto) 0.81 L, Nucleated RBC % 0 12/25/20 01:46: PT 30.8 H, INR 3.1 12/25/20 01:46: Sodium 134 L, Potassium 4.7, Chloride 98, Carbon Dioxide 25.0, Anion Gap 11, BUN 59 H, Creatinine 12.20 H*, Estim Creat Clear Calc 8.48, Est GFR (MDRD) Af Amer 6 L, Est GFR (MDRD) Non-Af 5 L, BUN/Creatinine Ratio 4.8 L, Glucose 106, Calcium 8.8, Total Bilirubin 0.40, AST 11 L, ALT 16, Alkaline Phosphatase 53, Total Protein 7.2, Albumin 2.8 L, Globulin 4.4 H, Albumin/Globulin Ratio 0.6 L, Triglycerides 76, Cholesterol 163, LDL Cholesterol 101, VLDL Cholesterol 15, HDL Cholesterol 47 Current Medications Acetaminophen (Acetaminophen 325 Mg Tablet) 650 mg PO Q6H PRN PRN PRN Reason: Pain Score 1-10/Temp > 100.7 F Al Hydroxide/Mg Hydroxide (Mag Hydrox/Al Hydrox/Simeth 30 Ml Udc) 30 ml PO Q6H PRN PRN PRN Reason: Gastric Burning Albuterol Sulfate (Albuterol 2.5 Mg/3 Ml Vial.Neb.) 2.5 mg INHALATION Q2H PRN PRN PRN Reason: Dyspnea, wheezing Amiodarone HCl (Amiodarone 200 Mg Tablet) 400 mg PO BID [facility] Last Admin: 12/25/20 08:43 Dose: 400 mg Documented by: Brimonidine Tartrate (Brimonidine 0.2% 5ml Bottle) 1 drp LEFT EYE TID [facility] Last Admin: 12/25/20 06:50 Dose: 1 drp Documented by: Guaifenesin (Guaifenesin 10 Ml Udc (200mg/10ml)) 20 ml PO Q4H PRN PRN PRN Reason: COUGH Hydralazine HCl (Hydralazine 20 Mg/Ml Vial) 10 mg IV Q4H PRN PRN PRN Reason: SBP > 160 Sodium Chloride () 250 mls @ 15 mls/hr IV .[id number] PRN PRN Reason: Saline Flush Sodium Chloride () 250 mls @ 15 mls/hr IV .[id number] PRN PRN Reason: Additional IVPB Infusion Magnesium Hydroxide (Magnesium Hydroxide 30 Ml Udc) 30 ml PO DAILY PRN PRN PRN Reason: Constipation Melatonin (Melatonin 3 Mg Tablet) 3 mg PO QHS PRN PRN PRN Reason: INSOMNIA Morphine Sulfate (Morphine 2 Mg/Ml Syringe) 2 mg IV Q3H PRN PRN PRN Reason: Pain Score 6-10 Last Admin: 12/25/20 00:22 Dose: 2 mg Documented by: Nitroglycerin (Nitroglycerin (Inpatient Use) 0.4 Mg Tab.Subl) 0.4 mg SL Q5M PRN PRN Reason: CARDIAC/CHEST PAIN Ondansetron HCl (Ondansetron 4 Mg/2 Ml Vial) 4 mg IV Q8H PRN PRN PRN Reason: NAUSEA/VOMITING Oxycodone HCl (Oxycodone 5 Mg Tablet) 5 mg PO Q4H PRN PRN PRN Reason: Pain Score 4-5 Prochlorperazine Edisylate (Prochlorperazine 10 Mg/2 Ml Vial) 5 mg IV Q4H PRN PRN PRN Reason: Breakthrough Nausea/Vomiting Psyllium Hydrophilic Mucilloid (Psyllium 1 Packet) 1 packet PO DAILY PRN PRN PRN Reason: Constipation Senna/Docusate Sodium (Senna/Docusate Sodium 1 Tablet) 2 tablet PO BID PRN PRN PRN Reason: Constipation Sevelamer Carbonate (Sevelamer Carbonate 800 Mg Tablet) 2,400 mg PO TIDCM [facility] Sodium Chloride (0.9% Saline Lock 10 Ml Syringe) 10 - 40 ml IV UD PRN PRN Reason: SALINE FLUSH Last Admin: 12/25/20 00:22 Dose: 10 ml Documented by: Throat Lozenges (Benzocaine/Menthol 1 Lozenge) 1 lozenge MUCOUS MEM Q2H PRN PRN PRN Reason: SORE THROAT Warfarin Sodium (Warfarin 5 Mg Tablet) 5 mg PO DAILY@1700 [facility] Discharge Diet: Renal Diet Discharge Activity: Return to Normal Activity Home Medications: Medications to take at Discharge Ferric Citrate [Auryxia] 630 mg PO TIDCM 02/05/19 amiodarone 400 mg tablet 400 mg PO DAILY 09/25/20 Warfarin [Coumadin] 5 mg PO DAILY 10/06/20 Brimonidine Tartrate 0.2% [Brimonidine 0.2% 5Ml Bottle] 1 drp LEFT EYE TID #1 bottle 10/09/20 Acetaminophen [Tylenol Tablet] 650 mg PO Q6H PRN PRN tablet 12/25/20 Atorvastatin Calcium 20 mg PO DAILY 30 Days #30 tablet 12/25/20 Midodrine HCl 5 mg PO TID 30 Days #90 tablet 12/25/20 Following Prescriptions Were Given to Patient: Atorvastatin Calcium 20 mg PO DAILY 30 Days #30 tablet Transmission Status: Received by [facility] Midodrine HCl 5 mg PO TID 30 Days #90 tablet Transmission Status: Received by [facility] Primary Care Physician: Pawel Banda MD [Primary Care Provider] - Please follow up with your Primary Care Physician in: within 1-2 weeks Please Follow Up With: Tameka Melnedez MD When: as scheduled Disposition: Home Minutes spent on discharge:: 35 Patient Condition:: Stable Medical Necessity - Tobacco Use Smoking Status: Never smoker Tobacco Use: Non-smoker Meaningful Use Info Meaningful Use Diagnoses (Choose all that apply): None applicable OBSV E&M: 21827 Observation care discharge
[2020-12-25] MEDS: Acetaminophen 325 MG Tablet 650 MG PO (12:12)
--- NOTE | 2020-12-25 16:19 | CON.PCM_ITS ---
Consultation - Renal 12/25/20 PCP/ Referring MD: Requesting physician: Dr. Hernandez Primary care physician: Dr. Pawel Banda MD - History of Present Illness History of Present Illness: The patient is a 40-year-old man who is known to our service with end-stage renal disease. The patient usually dialyzes at [facility] [place] on a Friday, Friday and Friday schedule. The patient presented to the hospital yesterday with chest pain. He had recently fallen at home, and chest pain was in the general area where he fell. The patient was also found to be orthostatic on admission. The patient tells me that orthostasis has been plaguing him for the last 2 months. His blood pressure has been running around mid 80s to low 90s systolic blood pressure. He denies current chest pain or shortness of breath. There has been no dizziness when he sits up since admission. The patient is seen during dialysis today, and blood pressure has been down as low as 60 mmHg during dialysis although he is not dizzy supine. The patient does get lightheaded at times. He does have happened to him while he is driving before as well. - Allergies Allergies: Allergies No Known Allergies Allergy (Verified 12/21/20 20:26) - Current Medications Current Medications: Current Medications Acetaminophen (Acetaminophen 325 Mg Tablet) 650 mg PO Q6H PRN PRN PRN Reason: Pain Score 1-10/Temp > 100.7 F Last Admin: 12/25/20 12:12 Dose: 650 mg Documented by: Al Hydroxide/Mg Hydroxide (Mag Hydrox/Al Hydrox/Simeth 30 Ml Udc) 30 ml PO Q6H PRN PRN PRN Reason: Gastric Burning Albuterol Sulfate (Albuterol 2.5 Mg/3 Ml Vial.Neb.) 2.5 mg INHALATION Q2H PRN PRN PRN Reason: Dyspnea, wheezing Amiodarone HCl (Amiodarone 200 Mg Tablet) 400 mg PO BID [facility] Last Admin: 12/25/20 08:43 Dose: 400 mg Documented by: Brimonidine Tartrate (Brimonidine 0.2% 5ml Bottle) 1 drp LEFT EYE TID [facility] Last Admin: 12/25/20 14:54 Dose: 1 drp Documented by: Guaifenesin (Guaifenesin 10 Ml Udc (200mg/10ml)) 20 ml PO Q4H PRN PRN PRN Reason: COUGH Hydralazine HCl (Hydralazine 20 Mg/Ml Vial) 10 mg IV Q4H PRN PRN PRN Reason: SBP > 160 Sodium Chloride () 250 mls @ 15 mls/hr IV .[id number] PRN PRN Reason: Saline Flush Sodium Chloride () 250 mls @ 15 mls/hr IV .[id number] PRN PRN Reason: Additional IVPB Infusion Magnesium Hydroxide (Magnesium Hydroxide 30 Ml Udc) 30 ml PO DAILY PRN PRN PRN Reason: Constipation Melatonin (Melatonin 3 Mg Tablet) 3 mg PO QHS PRN PRN PRN Reason: INSOMNIA Morphine Sulfate (Morphine 2 Mg/Ml Syringe) 2 mg IV Q3H PRN PRN PRN Reason: Pain Score 6-10 Last Admin: 12/25/20 00:22 Dose: 2 mg Documented by: Nitroglycerin (Nitroglycerin (Inpatient Use) 0.4 Mg Tab.Subl) 0.4 mg SL Q5M PRN PRN Reason: CARDIAC/CHEST PAIN Ondansetron HCl (Ondansetron 4 Mg/2 Ml Vial) 4 mg IV Q8H PRN PRN PRN Reason: NAUSEA/VOMITING Oxycodone HCl (Oxycodone 5 Mg Tablet) 5 mg PO Q4H PRN PRN PRN Reason: Pain Score 4-5 Prochlorperazine Edisylate (Prochlorperazine 10 Mg/2 Ml Vial) 5 mg IV Q4H PRN PRN PRN Reason: Breakthrough Nausea/Vomiting Psyllium Hydrophilic Mucilloid (Psyllium 1 Packet) 1 packet PO DAILY PRN PRN PRN Reason: Constipation Senna/Docusate Sodium (Senna/Docusate Sodium 1 Tablet) 2 tablet PO BID PRN PRN PRN Reason: Constipation Sevelamer Carbonate (Sevelamer Carbonate 800 Mg Tablet) 2,400 mg PO TIDCM [facility] Sodium Chloride (0.9% Saline Lock 10 Ml Syringe) 10 - 40 ml IV UD PRN PRN Reason: SALINE FLUSH Last Admin: 12/25/20 00:22 Dose: 10 ml Documented by: Throat Lozenges (Benzocaine/Menthol 1 Lozenge) 1 lozenge MUCOUS MEM Q2H PRN PRN PRN Reason: SORE THROAT Warfarin Sodium (Warfarin 5 Mg Tablet) 5 mg PO DAILY@1700 [facility] - Past Medical History Past Medical History (Chronic Problems): Chronic Problems (Last Reviewed 10/27/20 @ 13:[address] 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 50 to 69% stenosis left proximal internal carotid artery U/s 10/09/2020 Essential (primary) hypertension (Chronic) Unspecified symptoms and signs involving cognitive functions and awareness (Chronic 04/05/20) CVA ruled out ESRD on hemodialysis (Chronic) Anemia of chronic disorder (Chronic) Morbidly obese (Chronic) Non compliance w medication regimen (Chronic) Obstructive sleep apnea (Chronic) - Past Surgical History Surgical History: herniorrhaphy, - - Herniorrhaphy, aVF x2, catheter placements, right upper extremity aneurysm removal. - Social History Smoking Status: Never smoker Alcohol: None Drugs: None - Family History Paternal Family History: Family History (Last Reviewed 10/27/20 @ 13:[address] Nnamdi Moreno MD) Other Adopted History Items: - - Patient was adopted and does not know his maternal or paternal family history. Maternal Family History: Family History (Last Reviewed 10/27/20 @ 13:[address] Nnamdi Moreno MD) Other Adopted History Items: - - Patient was adopted and does not know his maternal or paternal family history. Review of Systems Constitutional: Denies: Chills, Fever, Weight Change Eyes: Denies: Blurred vision, Pain HEENT: Denies: Head Aches, Sinus Congestion, Sinus Drainage Cardiovascular: Denies: Chest Pain, Palpitations Respiratory: Denies: Cough, Shortness of breath at rest, Sputum production Gastrointestinal: Denies: Abdominal Pain, Nausea, Vomiting Genitourinary: Denies: Dysuria Musculoskeletal: Denies: Joint Pain, Joint Tenderness Skin: Denies: Rash, Wounds Neurological: Denies: Numbness, Tingling, Focal weakness Psychiatric: Denies: Anxiety, Depression, Homicidal Ideations, Suicidal Ideations Hematologic/ Lymphatic: Denies: Easy Bruising, Easy Bleeding Patient Problems: Active and Suspected Problems (Last Reviewed 10/27/20 @ 13:[address] Nnamdi Moreno MD) Chest pain (Acute) - Physical Exam Vitals/I&O's: Vital Signs Temp Pulse Resp BP Pulse Ox 98.2 F 88 18 119/71 99 12/25/20 10:47 12/25/20 14:59 12/25/20 10:47 12/25/20 12:14 12/25/20 11:25 Oxygen Flow Rate (L/min) 2 Oxygen Delivery Method Nasal Cannula Weight: 138.3 kg Body Mass Index (BMI) 43.4 Finger Stick Blood Glucose 80 Orthostatic Vital Signs Start: 12/25/20 12:14 Freq: q24h Status: Active Protocol: Activity Type Activity Date Activity User E-Sign Co-Sign Detail Recorded Client Recorded Date Recorded By Document 12/25/20 12:14 [place] [id number] 12/25/20 12:19 [place] 12/25/20 12:14 Orthostatic Vitals Standing -Blood Pressure (90/60-120/80) 121/79 H -Extremity Use Left Arm -Pulse Rate (60-100) 98 Sitting -Blood Pressure (90/60-120/80) 97/61 -Extremity Use Left Arm -Pulse Rate (60-100) 91 Lying -Blood Pressure (90/60-120/80) 119/71 -Extremity Use Left Arm -Pulse Rate (60-100) 89 Intake and Output for Last 24 Hours 12/23/20 12/24/20 12/25/20 23:59 23:59 23:59 Intake Total 440 / 440 200 / 200 Balance 440 / 440 200 / 200 General: Alert, Oriented x3, Cooperative HEENT: Atraumatic, PERRLA, EOMI Oral: Moist Mucosa Neck: Supple Lungs: Clear to auscultation Cardiovascular: Normal S1, Normal S2, No murmurs Abdomen: Bowel Sounds Present, Soft, Non Tender Extremities: No clubbing, No edema Skin: No rashes Musculoskeletal: No Tenderness to Palpation of Joints or Extremities Lymphatic: No Cervical, Supraclavicular, or Inguinal Adenopathy Neurological: Cranial nerves II-XII grossly intact Psych/Mental Status: Normal Affect Laboratory Results 12/24/20 19:40: WBC 6.3, RBC 3.71 L, Hgb 11.3 L, Hct 35.8 L, MCV 96.5 H, MCH 30.5, MCHC 31.6 L, RDW Std Deviation 58.6 H, RDW Coeff of Lance 16.4 H, Plt Count 174, MPV 10.9, Immature Gran % (Auto) 0.600, Neut % (Auto) 64.1, Lymph % (Auto) 12.0 L, [place] % (Auto) 18.7 H, Eos % (Auto) 4.3, Baso % (Auto) 0.3, Absolute Neuts (auto) 4.0, Absolute Lymphs (auto) 0.75 L, Nucleated RBC % 0 12/24/20 19:40: Sodium 134 L, Potassium 5.0, Chloride 96 L, Carbon Dioxide 28.0, Anion Gap 10, BUN 56 H, Creatinine 11.70 H*, Estim Creat Clear Calc 8.84, Est GFR (MDRD) Af Amer 6 L, Est GFR (MDRD) Non-Af 5 L, BUN/Creatinine Ratio 4.8 L, Glucose 91, Calcium 9.4, Troponin I < 0.015 12/24/20 19:40: PT 30.2 H, INR 3.0 12/24/20 22:55: Magnesium 2.4, Troponin I < 0.015 12/25/20 01:46: Troponin I < 0.015 12/25/20 01:46: WBC 5.1, RBC 3.27 L, Hgb 9.9 L, Hct 31.8 L, MCV 97.2 H, MCH 30 .3, MCHC 31.1 L, RDW Std Deviation 57.9 H, RDW Coeff of Lance 16.2 H, Plt Count 169, MPV 10.4, Immature Gran % (Auto) 0.600, Neut % (Auto) 66.5, Lymph % (Auto) 16.0 L, [place] % (Auto) 12.3 H, Eos % (Auto) 4.2, Baso % (Auto) 0.4, Absolute Neuts (auto) 3.4, Absolute Lymphs (auto) 0.81 L, Nucleated RBC % 0 12/25/20 01:46: PT 30.8 H, INR 3.1 12/25/20 01:46: Sodium 134 L, Potassium 4.7, Chloride 98, Carbon Dioxide 25.0, Anion Gap 11, BUN 59 H, Creatinine 12.20 H*, Estim Creat Clear Calc 8.48, Est GFR (MDRD) Af Amer 6 L, Est GFR (MDRD) Non-Af 5 L, BUN/Creatinine Ratio 4.8 L, Glucose 106, Calcium 8.8, Total Bilirubin 0.40, AST 11 L, ALT 16, Alkaline Rut sphatase 53, Total Protein 7.2, Albumin 2.8 L, Globulin 4.4 H, Albumin/Globulin Ratio 0.6 L, Triglycerides 76, Cholesterol 163, LDL Cholesterol 101, VLDL Cholesterol 15, HDL Cholesterol 47 Current Medications Acetaminophen (Acetaminophen 325 Mg Tablet) 650 mg PO Q6H PRN PRN PRN Reason: Pain Score 1-10/Temp > 100.7 F Last Admin: 12/25/20 12:12 Dose: 650 mg Documented by: Al Hydroxide/Mg Hydroxide (Mag Hydrox/Al Hydrox/Simeth 30 Ml Udc) 30 ml PO Q6H PRN PRN PRN Reason: Gastric Burning Albuterol Sulfate (Albuterol 2.5 Mg/3 Ml Vial.Neb.) 2.5 mg INHALATION Q2H PRN PRN PRN Reason: Dyspnea, wheezing Amiodarone HCl (Amiodarone 200 Mg Tablet) 400 mg PO BID [facility] Last Admin: 12/25/20 08:43 Dose: 400 mg Documented by: Brimonidine Tartrate (Brimonidine 0.2% 5ml Bottle) 1 drp LEFT EYE TID [facility] Last Admin: 12/25/20 14:54 Dose: 1 drp Documented by: Guaifenesin (Guaifenesin 10 Ml Udc (200mg/10ml)) 20 ml PO Q4H PRN PRN PRN Reason: COUGH Hydralazine HCl (Hydralazine 20 Mg/Ml Vial) 10 mg IV Q4H PRN PRN PRN Reason: SBP > 160 Sodium Chloride () 250 mls @ 15 mls/hr IV .[id number] PRN PRN Reason: Saline Flush Sodium Chloride () 250 mls @ 15 mls/hr IV .[id number] PRN PRN Reason: Additional IVPB Infusion Magnesium Hydroxide (Magnesium Hydroxide 30 Ml Udc) 30 ml PO DAILY PRN PRN PRN Reason: Constipation Melatonin (Melatonin 3 Mg Tablet) 3 mg PO QHS PRN PRN PRN Reason: INSOMNIA Morphine Sulfate (Morphine 2 Mg/Ml Syringe) 2 mg IV Q3H PRN PRN PRN Reason: Pain Score 6-10 Last Admin: 12/25/20 00:22 Dose: 2 mg Documented by: Nitroglycerin (Nitroglycerin (Inpatient Use) 0.4 Mg Tab.Subl) 0.4 mg SL Q5M PRN PRN Reason: CARDIAC/CHEST PAIN Ondansetron HCl (Ondansetron 4 Mg/2 Ml Vial) 4 mg IV Q8H PRN PRN PRN Reason: NAUSEA/VOMITING Oxycodone HCl (Oxycodone 5 Mg Tablet) 5 mg PO Q4H PRN PRN PRN Reason: Pain Score 4-5 Prochlorperazine Edisylate (Prochlorperazine 10 Mg/2 Ml Vial) 5 mg IV Q4H PRN PRN PRN Reason: Breakthrough Nausea/Vomiting Psyllium Hydrophilic Mucilloid (Psyllium 1 Packet) 1 packet PO DAILY PRN PRN PRN Reason: Constipation Senna/Docusate Sodium (Senna/Docusate Sodium 1 Tablet) 2 tablet PO BID PRN PRN PRN Reason: Constipation Sevelamer Carbonate (Sevelamer Carbonate 800 Mg Tablet) 2,400 mg PO TIDCM [facility] Sodium Chloride (0.9% Saline Lock 10 Ml Syringe) 10 - 40 ml IV UD PRN PRN Reason: SALINE FLUSH Last Admin: 12/25/20 00:22 Dose: 10 ml Documented by: Throat Lozenges (Benzocaine/Menthol 1 Lozenge) 1 lozenge MUCOUS MEM Q2H PRN PRN PRN Reason: SORE THROAT Warfarin Sodium (Warfarin 5 Mg Tablet) 5 mg PO DAILY@1700 [facility] Assessment/Plan All Active Problems (Last Reviewed 10/27/20 @ 13:[address] 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 ESRD. The patient dialyzes at [facility] dialysis center on Friday, Friday and Friday schedule. We have arranged for dialysis on his usual schedule today. Supervised the dialysis treatment. Duration is 4 hours; blood flow 400 dialysate low 800; 3K dialysate was used. Patient is tolerating dialysis well. Ultrafiltration goal will be determined by his blood pressure during this treatment. 2. Anemia. To new ANABELLA at outpatient kidney center. 3. Chest pain. This was an atypical chest pain which has resolved. No further work-up is planned by the hospital medicine service. 4. Orthostatic hypotension. Orthostasis has been a problem over the last 2 months. He has been taken off of all antihypertensives. Despite discontinuation of antihypertensives, blood pressure still runs low especially during dialysis. Therefore, we will start patient on midodrine at 5 mg 3 times a day.
[2020-12-25] MEDS: Heparin 10,000 UNITS/10 ML Vial 10000 UNITS IV (17:45)
[2020-12-25] MEDS: SEVELAMER CARBONATE 800 MG TABLET 2400 MG PO (17:46)
--- NOTE | 2020-12-25 18:04 | DIALYSIS ---
HD x 4 hours complete. Tolerated tx well. UF of 3000ml. Used right thigh graft. [place] removed post tx and pressure applied x 10 minutes. Hemostasis achieved. Fresh gauze and tape applied. Report was given to RACHEL Ibanez
== END 2020-12-25 11:48 | disposition home or self-care (01) ==
LOC: ED 19:59 → PCU 21:37
PROVIDERS: Admitting Provider Family Medicine; Emergency Provider Emergency Medicine; PCP Internal Medicine; Visit Provider Internal Medicine
DX: R07.89 Other chest pain (principal); I95.1 Orthostatic hypotension; I48.92 Unspecified atrial flutter; I48.0 Paroxysmal atrial fibrillation; I12.0 Hypertensive chronic kidney disease with stage 5 chronic kidney disease or end stage renal disease; N18.6 End stage renal disease; E66.01 Morbid (severe) obesity due to excess calories; D63.8 Anemia in other chronic diseases classified elsewhere; G47.33 Obstructive sleep apnea (adult) (pediatric); E78.5 Hyperlipidemia, unspecified; N25.81 Secondary hyperparathyroidism of renal origin; M89.9 Disorder of bone, unspecified; M41.9 Scoliosis, unspecified; I44.0 Atrioventricular block, first degree; Z79.01 Long term (current) use of 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s; Z79.899 Other long term (current) drug therapy; Z99.2 Dependence on renal dialysis; Z91.14 Patient's other noncompliance with medication regimen; Z86.711 Personal history of pulmonary embolism; Z68.41 Body mass index [BMI] 40.0-44.9, adult
CPT/HCPCS: 36415; 71046; 78452; 80048; 80053; 80061; 83735; 84484; 85025; 85610; 90937; 93005; 93017; 96374; 99218; 99251; 99285; A9500; J7030; A4216; G0257; G0378; G0463; J2785

== ENCOUNTER 2021-01-20 23:53 | Emergency (ER) | payer MEDICARE, MEDICAID, SELFPAY ==
[2021-01-20 23:54] VITALS: BP 156/68; PULSE 95; RESP 18; TEMP 36.1; O2SAT 95; BMI 40.8
--- NOTE | 2021-01-21 00:04 | EKG12_ITS ---
Test Reason : GEN ILLNESS Blood Pressure : / mmHG Vent. Rate : 088 BPM Atrial Rate : 088 BPM P-R Int : 196 ms QRS Dur : 068 ms QT Int : 366 ms P-R-T Axes : 083 132 058 degrees QTc Int : 442 ms Normal sinus rhythm Poor R wave progression Confirmed by ADALGISA STAHL, GOGO ([id number]), purchasing expeditor MARGARITO CHANDLER ([id number]) on 01/24/2021 8:48:14 AM Referred By: ALEXEY Confirmed By:GOGO DIANA MD
--- NOTE | 2021-01-21 00:04 | RAD_ITS ---
STUDY: X-RAY CHEST REASON FOR EXAM: Male, 40 years old. cough TECHNIQUE: Single AP portable view of the chest. COMPARISON: None. FINDINGS: The lungs are underexpanded. There is no demonstrated pleural abnormality. Normal size heart. Normal mediastinum and michael. Normal visualized pulmonary arteries. Normal visualized aortic arch and descending thoracic aorta. There is a dextroscoliosis of the thoracic spine. There is deformity in the proximal left humerus. There is no demonstrated abnormality of the visualized soft tissue structures of the upper abdomen. RAD/Chest 1 View (Portable) IMPRESSION: No demonstrated acute cardiopulmonary process. Electronically Signed: Sam Overton MD at 1:08 EDT Tel , Service support ,
--- NOTE | 2021-01-21 00:05 | ED.DCSUM_ITS ---
History of Present Illness Chief Complaint: General Illness Informant: Patient Onset: Days Context: Gradual Onset Timing: Continuous Current Severity: Mild Maximum Severity: Mild Narrative: Patient is a 40-year-old male multiple comorbidities including end-stage renal disease on dialysis, prior stroke, congestive heart failure, and history of pneumonia and bacteremia who presents to the emergency department multiple complaints. Patient states for the past 2 weeks, he has had cold-like symptoms. He states he had a scant cough and some mild shortness of breath. He states he is not had a fever. The patient does have history of pneumonia and states he just does not feel as sick. He is also concerned because he had an area that seemed like an abscess on his back. He did spontaneously drained, but states it has been more painful. He states he is also had a frontal headache for the past few days. Its worse when he bends over. Patient has recently been taking off his antihypertensives because of hypotension. He has been on midodrine. He denies fever or chills. He denies nausea or vomiting. He has been compliant with his dialysis. His last treatment was yesterday. Prior similar symptoms: No Recent Illness/Hospitalization: No Past Medical History - Allergies and Home Meds Allergies/Adverse Reactions: Allergies No Known Allergies Allergy (Verified 01/20/21 23:56) Primary Care Physician: Pawel Banda MD [Primary Care Provider] - Prior records reviewed: Yes Past Medical History: - - End-stage renal disease, hypertension, hyperlipidemia, CHF, prior stroke Surgical History: herniorrhaphy, - - Herniorrhaphy, aVF x2, catheter placements, right upper extremity aneurysm removal. Smoking Status: Never smoker - Family History Paternal Family History: Family History (Last Reviewed 10/27/20 @ 13:[address] Nnamdi Moreno MD) Other Adopted Family History: Reports: - - Patient was adopted and does not know his maternal or paternal family history. Maternal Family History: Family History (Last Reviewed 10/27/20 @ 13:[address] Nnamdi Moreno MD) Other Adopted Family History: Reports: - - Patient was adopted and does not know his maternal or paternal family history. Review of Systems General: Reports: Malaise Eyes: Denies: Visual changes - bilaterally, Diplopia ENT: Denies: Rhinorrhea, Sore throat Cardiovascular: Denies: Chest pain, Palpitations Respiratory: Reports: Dyspnea, Cough Gastrointestinal: Denies: Abdominal pain, Nausea, Vomiting, Diarrhea, Melena, Hematochezia Genitourinary: Denies: Dysuria, Hematuria, Frequency Musculoskeletal: Denies: Back pain, Extremity Pain Skin: Reports: Abscess Neurological: Reports: Headache Physical Exam Vital Signs/Narrative: Vital Signs Temp Pulse Resp BP Pulse Ox 01/20/21 23:54 97 F L 95 18 156/68 H 95 Inital Vital Signs reviewed: Yes General: Well nourished, Well developed, No Acute Distress Head: Normocephalic, Atraumatic Eyes: Perrl, EOMI ENT: Moist mucous membranes, No rhinorrhea Neck: Supple, Nontender Cardiovascular: Regular rate, Regular rhythm, No murmurs Respiratory: No distress, Chest nontender, Diminished Abdomen: Soft, Nontender, Nondistended, Normal bowel sounds Back: Normal Inspection, - - Patient has a 2 cm ovoid area of old abscess that is drained. There is no central fluctuance. It is tender without crepitus. Extremities: Nontender, No edema Skin: Normal color, No rash Neurological: Alert, Oriented x3, Cranial nerves II-XII grossly intact, Normal Strength, Normal Sensation Psychological: Normal affect, Normal Mood Diagnostic/Tx/Re-eval Clinical Impression(s) from Imaging Studies Chest X-Ray 01/21/21 00:04 IMPRESSION: No demonstrated acute cardiopulmonary process. Electronically Signed: Sam Overton MD at 1:08 EDT Tel , Service support , Abnormal Lab Results 01/21/21 01/21/21 00:35 00:35 WBC 5.2 RBC 3.76 L Hgb 11.3 L Hct 37.0 L MCV 98.4 H MCH 30.1 MCHC 30.5 L RDW Std Deviation 64.5 H RDW Coeff of Lance 17.9 H Plt Count 181 MPV 10.2 Immature Gran % (Auto) 0.600 Neut % (Auto) 56.1 Lymph % (Auto) 18.3 L [place] % (Auto) 21.0 H Eos % (Auto) 3.2 Baso % (Auto) 0.8 Absolute Neuts (auto) 2.9 Absolute Lymphs (auto) 0.96 Nucleated RBC % 0 Sodium 135 L Potassium 4.3 Chloride 94 L Carbon Dioxide 31.0 Anion Gap 10 BUN 55 H Creatinine 10.40 H* Estim Creat Clear Calc 9.94 Est GFR (MDRD) Af Amer 7 L Est GFR (MDRD) Non-Af 6 L BUN/Creatinine Ratio 5.3 L Glucose 100 Calcium 10.1 Total Bilirubin 0.30 AST 62 H ALT 90 H Alkaline Phosphatase 91 Total Protein 8.5 H Albumin 3.3 Globulin 5.2 H Albumin/Globulin Ratio 0.6 L - Medical Decision Making Patient presents with mild upper respiratory symptoms and pain at skin site. He does have history of pneumonia. He has not had fever. He is also Covid recovered and has been vaccinated. He is not hypoxic or tachypneic. Screening labs were obtained. These were unremarkable. I did demonstrate his history of chronic kidney disease. Chest x-ray was obtained. Was reviewed by both myself and the radiologist. There is some mild cephalization, but no focal infiltrative process. There is no significant effusions. There is no pneumonia. Labs are unremarkable. The patient is resting comfortably. At this point, I am going to cover him with doxycycline for the small area of skin cellulitis and I do feel this will also cover any atypical upper respiratory infection. I do feel the patient is safe for outpatient therapy and he is agreeable with plan of care. Impression 1. Spontaneously drained abscess with mild cellulitis right back 2. URI ED Disposition - Plan for ED Patient: Disposition: Home or Assisted Living Instructions: ED Upper Resp Infec Abx Tx Prescriptions: Doxycycline 100 mg PO BID #20 capsule Prescription Printed Referrals: Pawel Banda MD [Primary Care Provider] -
[2021-01-21] MEDS: Ondansetron 4 MG/2 ML Vial IV (00:34)
[2021-01-21] MEDS: fentaNYL 100 MCG/2 ML Ampul 50 MCG IV (00:34)
[2021-01-21 00:41] LABS: Absolute Lymphocyte Count 0.96 X10^3/uL (0.83-4.51); Absolute Neutrophil Count 2.9 X10^3/uL (2.0-7.7); Basophil# 0.04 X10^3/uL; Basophil% 0.8 % (0-1); Eosinophil# 0.17 X10^3/uL; Eosinophils% 3.2 % (0-5); Hemoglobin 11.3 g/dL (13.0-16.5); Lymphocyte # 0.96 X10^3/ul (0.83-4.51); Lymphocyte % 18.3 % (19-41); Mean Corp Hgb Conc 30.5 g/dL (32-36); Mean Corpuscular Hgb 30.1 pg (27.0-32.0); Mean Corpuscular Volume 98.4 fL (80-94); Mean Platelet Vol. 10.2 fl (6.2-12.0); NRBC Flagged by Analyzer 0 % (0-5); Neutrophil # 2.94 X10^3/uL (2.7-7.7); Neutrophil % 56.1 % (47-70); Platelet Count 181 K/mm3 (150-450); RBC Distribution Width CV 17.9 % (11.6-14.6); RBC Distribution Width SD 64.5 fl (35.1-43.9); Red Blood Count 3.76 M/mm3 (4.6-6.2); White Blood Count 5.2 K/mm3 (4.4-11.0)
[2021-01-21 01:25] LABS: ALB/GLOB Ratio 0.6 RATIO (0.9-2.4); AST(SGOT) 62 U/L (15-37); Alanine Aminotransfer ALT/SGPT 90 U/L (16-61); Albumin, Serum 3.3 g/dL (3.2-5.0); Alkaline Phosphatase 91 U/L (45-117); Anion Gap 10 (5-15); BUN 55 mg/dL (7-18); BUN/Creat Ratio 5.3 RATIO (10-20); Calcium,Total 10.1 mg/dL (8.5-10.1); Chloride 94 mmol/L (98-107); EST Glomerular Filtration Rate 6 mL/min (>60); Est Glom Filt Rate - Afr Amer 7 mL/min (>60); Estimated Creatinine Clearance 9.94 ml/min; Globulin 5.2 g/dL (2.2-4.2); Glucose 100 mg/dL (74-106); Potassium 4.3 mmol/L (3.5-5.1); Protein, Total 8.5 g/dL (6.4-8.2); Sodium Level 135 mmol/L (136-145)
[2021-01-21 01:43] VITALS: BP 102/53; PULSE 81; RESP 16; O2SAT 98
[2021-01-21] MEDS: Doxycycline 100 MG CAPSULE PO (01:46)
[2021-01-21] MEDS: Acetaminophen 500 MG Tablet 1000 MG PO (01:46)
== END 2021-01-21 01:52 | disposition home or self-care (01) ==
PROVIDERS: Emergency Provider Emergency Medicine; PCP Internal Medicine
DX: L02.212 Cutaneous abscess of back [any part, except buttock and flank] (principal); J06.9 Acute upper respiratory infection, unspecified; N18.6 End stage renal disease; Z99.2 Dependence on renal dialysis; Z79.01 Long term (current) use of 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s
CPT/HCPCS: 71045; 80053; 85025; 93005; 96374; 96375; 99285; J2405

== ENCOUNTER 2021-01-31 03:52 | Emergency (ER) | payer MEDICARE, MEDICAID, SELFPAY ==
[2021-01-30 08:51] VITALS: BMI 43.0
[2021-01-31 03:52] VITALS: BP 81/65; PULSE 93; RESP 16; TEMP 37.1; O2SAT 98; BMI 43.0
--- NOTE | 2021-01-31 03:56 | EDS_ITS ---
HPI History of Present Illness Chief Complaint: Wound Informant: patient Onset/Context/Timing Onset: Weeks Context: Gradual Onset Timing: Continuous Current Severity: Moderate Maximum Severity: Moderate Narrative Narrative: Patient presents for evaluation of wound on his back. Actually saw this patient about 10 days ago. At that point, he had upper respiratory symptoms with cough. He also had a small area of cellulitis on the back. He has been on doxycycline and states he has 2 days left. He states that he was just concerned because it does not seem like it is getting better. He denies any fevers or chills. He denies any other systemic complaints. He is been compliant with his dialysis. He had no trauma to the area. 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) Central retinal artery occlusion of left eye (10/09/20) Chronic kidney disease-mineral and bone disorder Chronic pelvic pain in male COVID-19 virus detected (03/20/20) Dialysis patient ESRD on hemodialysis Essential (primary) hypertension Expressive aphasia (04/05/20) Hearing loss Hematuria History of bacterial endocarditis History of blood clots History of non-ST elevation myocardial infarction (NSTEMI) (11/08/19) History of pulmonary embolus (PE) History of venous thromboembolism 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 due to renal insufficiency 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 Mechanical complication of arteriovenous fistula surgically created Mitral valve annular calcification Morbidly obese Non compliance w medication regimen Nonrheumatic mitral valve stenosis with insufficiency Obstructive sleep apnea Paroxysmal atrial fibrillation (06/10/20) Paroxysmal atrial flutter 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) Pelvic mass Unspecified symptoms and signs involving cognitive functions and awareness (04/05/20) Home Medications ferric citrate 630 mg PO TIDCM 02/05/19 [History Last Taken 09/29/20 09:00 210 mg] amiodarone 400 mg tablet 400 mg PO DAILY 09/25/20 [History Last Taken 10/05/20 21:00 400 mg] warfarin 5 mg PO DAILY 10/06/20 [History Last Taken 10/05/20 21:00] brimonidine 1 drp LEFT EYE TID #1 bottle 10/09/20 [Rx Last Taken Unknown] acetaminophen 650 mg PO Q6H PRN PRN tablet 12/25/20 [Rx Last Taken Unknown] amiodarone 200 mg tablet 200 mg PO DAILY tab 01/30/21 [History Last Taken Unknown] atorvastatin 20 mg tablet 20 mg PO QHS tab 01/30/21 [History Last Taken Unknown] oxycodone 5 mg tablet tablet PO 01/30/21 [History Last Taken Unknown] valacyclovir 1 gram tablet tablet PO 01/30/21 [History Last Taken Unknown] Allergy/AdvReac Type Severity Reaction Status Date / Time No Known Allergies Allergy Verified 01/30/21 08:52 Family History Other Adopted Surgical History History of cardioversion (12/02/18) history of cather replacement History of herniorrhaphy History of left heart catheterization (09/17/18) History of repair of congenital cleft palate Mechanical complication of dialysis catheter Status post creation of arteriovenous fistula Social History Smoking Status: Never smoker alcohol intake: never substance use type: marijuana what type of physical activity do you participate in: none ROS ROS ED Constitutional Constitutional ED: Denies chills or fever(s) Eyes Eyes: Denies blurry vision or change in vision ENT ENT ED: Denies ear pain or sore throat Cardiovascular Cardiovascular: Denies chest pain or palpitations Respiratory/Chest Respiratory/Chest: Denies cough, dyspnea or dyspnea on exertion Gastrointestinal Gastrointestinal: Denies abdominal pain, nausea or vomiting Genitourinary Genitourinary ED: Denies dysuria or urinary frequency Musculoskeletal Musculoskeletal: Denies arthralgias or myalgias Integumentary Reports rash Neurologic Neurologic: Denies headache(s) or paresthesias Psychiatric Psychiatric: Denies anxiety or depression Endocrine Endocrinology: Denies polydipsia or polyuria Allergic/Immunologic Allergic/Immunologic ED: Denies urticaria EXAM Physical Exam Back/Spine Back/Spine Narrative: Patient has a 2 cm ovoid area of granulomatous tissue. The central eschar has almost completely fallen off. There is no surrounding cellulitis. It is tender to touch. 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 The area is 2 cm without cellulitis. There is pink granulomatous tissue that is underneath with appropriate wound healing. He has already been treated with antibiotics. There are clear wound margins without streaking or cellulitis. I am going to treat him with topical bacitracin and also given outpatient follow- up in the wound center as he may benefit from debriding. The patient will be discharged home. Discharge Plan Triage Chief Complaint: Wound ED Provider: Sean Russo Dx/Rx/DC Orders Clinical Impression: Open wound of skin Instructions: ED Skin Avulsion Prescriptions: No Action amiodarone 400 mg tablet 400 mg PO DAILY RF: 0 valacyclovir [Valtrex] 1 gram tablet 1,000 mg PO DAILY RF: 0 amiodarone 200 mg tablet 200 mg PO DAILY RF: 0 oxycodone 5 mg tablet 5 mg PO DAILY RF: 0 atorvastatin 20 mg tablet 20 mg PO QHS RF: 0 ferric citrate 210 MG tablet 630 mg PO TIDCM RF: 0 warfarin 5 MG tablet 5 mg PO DAILY RF: 0 brimonidine 1 DROP bottle 1 drp LEFT EYE TID Qty: 1 RF: 0 acetaminophen 325 MG tablet 650 mg PO Q6H PRN PRN (Reason: Pain Score 1-10/Temp > 100.7 F) RF: 0 doxycycline monohydrate 100 MG capsule 100 mg PO BID Qty: 20 RF: 0 Primary Care Provider: Pawel Banda Referrals: Pawel Banda MD [Primary Care Provider] - Brianne Reyes DPM [STAFF PHYSICIAN] - 2 Days (Follow up at the wound center)
[2021-01-31] MEDS: HYDROcodone Bitartrate/Apap 5/325 Tablet PO (04:11)
== END 2021-01-31 04:47 | disposition short-term general hospital (02) ==
PROVIDERS: Emergency Provider Emergency Medicine; PCP Internal Medicine
DX: S31.000A Unspecified open wound of lower back and pelvis without penetration into retroperitoneum, initial encounter (principal); E66.01 Morbid (severe) obesity due to excess calories; N18.6 End stage renal disease; Z86.718 Personal history of other venous thrombosis and embolism; Z86.711 Personal history of pulmonary embolism; Z79.01 Long term (current) use of 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s; Z99.2 Dependence on renal dialysis; X58.XXXA Exposure to other specified factors, initial encounter
CPT/HCPCS: 99283

== ENCOUNTER 2021-02-04 22:50 | Emergency (ER) | payer MEDICARE, MEDICAID, SELFPAY ==
[2021-02-04 22:52] VITALS: BP 112/47; PULSE 98; RESP 22; TEMP 36.6; O2SAT 99; BMI 42.9
--- NOTE | 2021-02-04 22:55 | ED.RN ---
RN CALLED FOR EKG, PULLED OLD EKGS FOR
--- NOTE | 2021-02-04 23:09 | EKG12_ITS ---
Test Reason : CP Blood Pressure : / mmHG Vent. Rate : 092 BPM Atrial Rate : 092 BPM P-R Int : 186 ms QRS Dur : 068 ms QT Int : 358 ms P-R-T Axes : 078 136 048 degrees QTc Int : 442 ms Normal sinus rhythm Right axis deviation Anterior infarct , age undetermined Abnormal ECG Confirmed by ADALGISA STAHL, GOGO ([id number]), continuity editor MARGARITO CHANDLER ([id number]) on 02/07/2021 8:12:41 AM Referred By: EARL Confirmed By:GOGO DIANA MD
--- NOTE | 2021-02-04 23:10 | CT_ITS ---
STUDY: CT BRAIN WITHOUT CONTRAST REASON FOR EXAM: Male, 40 years old. Headache. According to a previous radiology report, there is a history of dialysis. RADIATION DOSAGE (If Supplied By Facility): CTDIvol = ( 44.99 ) mGy, DLP = ( 829.85 ) mGycm TECHNIQUE: Transaxial CT imaging of the brain was performed without administration of intravenous contrast material. Individualized dose optimization techniques were used for this CT. COMPARISON: MRI brain 10/07/2020. CT scan brain 10/06/2019. FINDINGS: Normal soft tissue structures. There is calcification of the superficial vessels in the scalp. 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 Normal size ventricles and extra-axial spaces for the patient''s age. Normal white matter tracts of the cerebral hemispheres. Normal basal ganglia and thalami. Normal brainstem. Normal cerebellum. There is no intracranial hemorrhage. There are no findings of an acute ischemic infarction. Normal visualized paranasal sinuses. CT/Brain/Head without Contrast IMPRESSION: No demonstrated acute intracranial process. Electronically Signed: Germán Carpenter MD at 0:05 EDT , Service support ,
--- NOTE | 2021-02-04 23:10 | ED.VIS.CHEST ---
HPI History of Present Illness Chief Complaint: Chest Pain Informant: patient Onset/Context/Timing Onset: Today and Yesterday Activity at onset: sudden Timing: Intermittent and Lasts (1 to 2 hours) Quality: Positive for Pressure Location: Substernal Worsened By: Nothing Relieved By: NTG Associated Symptoms: Positive for Nausea, Dyspnea, Lightheadedness and Palpitations; Negative for Vomiting, Diaphoresis, Cough, Fever and Acid Reflux Narrative Narrative: Patient presents with chest pain that began yesterday. Patient states he had an episode yesterday lasted approximate 1 to 2 hours. Patient states that he had a similar episode tonight while driving to work. Patient also complains of a headache that began at the same time. Patient states the pain is over the substernal area. Patient describes the pain as a pressure. Patient states he took his heart pill which helped. Patient admits to nausea but denies any vomiting. Patient admits to some shortness of breath but denies any cough or fever. Patient states he also took some Tylenol which helped with his headache. 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) Central retinal artery occlusion of left eye (10/09/20) Chronic kidney disease-mineral and bone disorder Chronic pelvic pain in male COVID-19 virus detected (03/20/20) Dialysis patient ESRD on hemodialysis Essential (primary) hypertension Expressive aphasia (04/05/20) Hearing loss Hematuria History of bacterial endocarditis History of blood clots History of non-ST elevation myocardial infarction (NSTEMI) (11/08/19) History of pulmonary embolus (PE) History of venous thromboembolism 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 due to renal insufficiency 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 Mechanical complication of arteriovenous fistula surgically created Mitral valve annular calcification Morbidly obese Non compliance w medication regimen Nonrheumatic mitral valve stenosis with insufficiency Obstructive sleep apnea Paroxysmal atrial fibrillation (06/10/20) Paroxysmal atrial flutter 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) Pelvic mass Unspecified symptoms and signs involving cognitive functions and awareness (04/05/20) Home Medications ferric citrate 630 mg PO TIDCM 02/05/19 [History Last Taken 09/29/20 09:00 210 mg] warfarin 5 mg PO DAILY 10/06/20 [History Last Taken 10/05/20 21:00] brimonidine 1 drp LEFT EYE TID #1 bottle 10/09/20 [Rx Last Taken Unknown] acetaminophen 650 mg PO Q6H PRN PRN tablet 12/25/20 [Rx Last Taken Unknown] atorvastatin 20 mg tablet 20 mg PO QHS tab 01/30/21 [History Last Taken Unknown] oxycodone 5 mg tablet 5 mg PO DAILY 01/30/21 [History Last Taken Unknown] valacyclovir 1 gram tablet 1,000 mg PO DAILY 01/30/21 [History Last Taken Unknown] Allergy/AdvReac Type Severity Reaction Status Date / Time No Known Allergies Allergy Verified 02/04/21 22:51 Family History Other Adopted Surgical History History of cardioversion (12/02/18) history of cather replacement History of herniorrhaphy History of left heart catheterization (09/17/18) History of repair of congenital cleft palate Mechanical complication of dialysis catheter Status post creation of arteriovenous fistula Social History Smoking Status: Never smoker alcohol intake: never substance use type: marijuana what type of physical activity do you participate in: none ROS ROS ED Constitutional Constitutional ED: Denies chills or fever(s) Eyes Eyes: Denies blurry vision or change in vision ENT ENT ED: Denies rhinorrhea or sore throat Cardiovascular Cardiovascular: Reports chest pain and palpitations Respiratory/Chest Respiratory/Chest: Reports dyspnea; Denies cough Gastrointestinal Gastrointestinal: Reports nausea; Denies abdominal pain or vomiting Genitourinary Genitourinary ED: Denies dysuria or hematuria Musculoskeletal Musculoskeletal: Denies back pain or neck pain Integumentary Denies abscess or rash Neurologic Neurologic: Denies headache(s) or weakness Allergic/Immunologic Allergic/Immunologic ED: Denies mouth swelling or urticaria EXAM Physical Exam Const Vital Signs: 02/04/21 22:52 02/04/21 23:09 02/04/21 23:53 Temperature 97.9 F Temperature Source Oral Pulse Rate 98 Respiratory Rate 22 H Respiratory Effort Short of Breath Blood Pressure 112/47 L Blood Pressure Mean 68 Pulse Ox 99 94 Oxygen Delivery Method Room Air Nasal Cannula Oxygen Flow Rate (L/min) 2 02/04/21 23:58 02/05/21 00:40 02/05/21 01:04 Temperature 97.9 F Temperature Source Temporal Pulse Rate 93 98 88 Respiratory Rate 25 H 20 H 20 H Respiratory Effort Blood Pressure 107/82 H 81/65 L 128/45 H Blood Pressure Mean 90 70 72 Pulse Ox 100 98 97 Oxygen Delivery Method Room Air Nasal Cannula Room Air Oxygen Flow Rate (L/min) 2 02/05/21 01:27 02/05/21 02:07 02/05/21 02:15 Temperature Temperature Source Pulse Rate 85 90 Respiratory Rate 17 16 Respiratory Effort Blood Pressure 116/84 H 95/84 H Blood Pressure Mean 94 87 Pulse Ox 98 94 97 Oxygen Delivery Method Nasal Cannula Nasal Cannula Room Air Oxygen Flow Rate (L/min) 2 1 Positive well nourished, well developed and obese General Appearance ED: well developed Nutritional Appearance: obese HEENT Reports moist mucous membranes normocephalic Neck supple and no JVD Resp normal respiratory effort Effort and Inspection: Negative for respiratory distress Auscultation: diminished lung sounds diffuse Cardio regular rate and regular rhythm GI normal to inspection, nondistended, normoactive bowel sounds, soft to palpation and non-tender Neuro oriented x3, CN's II-XII intact bilaterally and no sensory deficits noted Sensorium / Orientation: awake and alert Motor Exam: strength 5/5 throughout Psych mental status grossly normal Heart Score History: Slightly/Non-Suspicious ECG: Normal Age: </= 45 years Risk Factors: >/= 3 Risk Factors or History of CAD Troponin: </= Normal Limit Score: 2 MDM MDM MDM Narrative Medical decision making narrative: EKG was obtained. On my interpretation, there is normal sinus rhythm with a rate of 92. There is right axis deviation 136. There are no acute ST or T wave changes. There is some artifact noted in leads V4 and V5. This was unchanged compared to previous EKG dated 01/21/2021. CT scan of the brain was obtained. There is no acute intracranial abnormality. CBC was within normal limits. Basic metabolic profile showed an elevated BUN and creatinine of 73 and 11.90. These are consistent with prior results. Troponin was normal. Portable 1 view chest x-ray was obtained. On my interpretation, lung page are clear. There is normal cardiac silhouette. Bony thorax is normal. There is no acute process noted. Radiologist also interpreted the x-ray and agrees. Patient was ordered Reglan and Benadryl for his headache. Patient refused these. Patient was given an injection of morphine. Patient states his headache was starting to get better but it is still present. Patient states he is still concerned with his visual changes because he has blind in his left eye and he is concerned that he may lose the vision in his right eye. Patient states he does not feel comfortable going home. I discussed the case with the hospitalist. He does not feel the patient meets criteria for admission. Patient was given a dose of Imitrex. Patient states his headache is improving. Patient feels better about going home. Patient was instructed to follow-up with his primary care physician in 3 to 5 days for further evaluation. Patient understood and was agreeable with the plan. All questions were answered. Lab Data Attestation: I reviewed the patient's lab results. Labs: Laboratory Results - last 24 hr 02/05/21 02/05/21 00:05 00:13 WBC 6.6 RBC 3.62 L Hgb 10.9 L Hct 35.4 L MCV 97.8 H MCH 30.1 MCHC 30.8 L RDW Std Deviation 64.9 H RDW Coeff of Lance 18.6 H Plt Count 160 MPV 9.9 Immature Gran % (Auto) 0.900 Neut % (Auto) 69.2 Lymph % (Auto) 12.0 L [place] % (Auto) 16.2 H Eos % (Auto) 1.1 Baso % (Auto) 0.6 Absolute Neuts (auto) 4.6 Absolute Lymphs (auto) 0.79 L Nucleated RBC % 0 Sodium 137 Potassium 4.4 Chloride 96 L Carbon Dioxide 29.0 Anion Gap 12 BUN 73 H Creatinine 11.90 H* Estim Creat Clear Calc 8.69 Est GFR (MDRD) Af Amer 6 L Est GFR (MDRD) Non-Af 5 L BUN/Creatinine Ratio 6.1 L Glucose 92 Calcium 9.9 Troponin I < 0.015 Radiography Chest X-Ray - ED: 1 View, Read by ED Physician, Read by Radiologist and Normal Diagnostic Testing: Radiology Impression Brain CT 02/04/21 23:10 IMPRESSION: No demonstrated acute intracranial process. Electronically Signed: Germán Carpenter MD at 0:05 EDT , Service support , Chest X-Ray 02/04/21 23:45 IMPRESSION: No evidence for acute cardiopulmonary pathology. Chronic destructive changes of the left shoulder. Scoliosis. Electronically Signed: Germán Carpenter MD at 0:13 EDT , Service support , EKG Initial EKG: Attestation: I personally reviewed and interpreted this EKG as follows: Interpretation: Sinus Rhythm (92) and No Acute Injury Pattern Prior EKG tracings: available for review Prior: Unchanged Discharge Plan Triage Chief Complaint: Chest Pain ED Provider: Piero Marques Dx/Rx/DC Orders Clinical Impression: Headache, Chest pain of uncertain etiology Instructions: ED Chest Pain, Uncertain Cause, ED Pain, Acute, Uncertain Cause Prescriptions: No Action valacyclovir [Valtrex] 1 gram tablet 1,000 mg PO DAILY RF: 0 oxycodone 5 mg tablet 5 mg PO DAILY RF: 0 atorvastatin 20 mg tablet 20 mg PO QHS RF: 0 ferric citrate 210 MG tablet 630 mg PO TIDCM RF: 0 warfarin 5 MG tablet 5 mg PO DAILY RF: 0 brimonidine 1 DROP bottle 1 drp LEFT EYE TID Qty: 1 RF: 0 acetaminophen 325 MG tablet 650 mg PO Q6H PRN PRN (Reason: Pain Score 1-10/Temp > 100.7 F) RF: 0 Stand Alone Forms: ED Work / School Excuse Primary Care Provider: Pawel Banda Referrals: Pawel Banda MD [Primary Care Provider] - 3-5 Days Disposition Disposition: Home, self care
[2021-02-04] MEDS: Aspirin 81 MG TAB.CHEW 324 MG PO (23:15)
--- NOTE | 2021-02-04 23:17 | ED.RN ---
Low Bp so holding nitro and working on IV at this tie
--- NOTE | 2021-02-04 23:45 | RAD_ITS ---
STUDY: X-RAY CHEST REASON FOR EXAM: Male, 40 years old. intermittent chest pain that started yesterday. TECHNIQUE: 2 AP portable views of the chest were obtained. COMPARISON: 01/21/2021. FINDINGS: There are no confluent pulmonary infiltrates. There is no demonstrated pleural abnormality. Normal size heart. Normal mediastinum and michael. Normal visualized aortic arch and descending thoracic aorta. There is chronic partial destruction of the left humeral head with associated inferior subluxation of the glenohumeral joint. There are also chronic erosive changes of the left glenoid. There is associated thoracic scoliosis. There is no demonstrated abnormality of the visualized soft tissue structures of the upper abdomen. RAD/Chest 1 View (Portable) IMPRESSION: No evidence for acute cardiopulmonary pathology. Chronic destructive changes of the left shoulder. Scoliosis. Electronically Signed: Germán Carpenter MD at 0:13 EDT , Service support ,
[2021-02-04 23:53] VITALS: O2SAT 94
[2021-02-04 23:58] VITALS: BP 107/82; PULSE 93; RESP 25; O2SAT 100
--- NOTE | 2021-02-04 23:58 | ED.RN ---
Per merari, charge nurse, patient has a line that flushes well but not able to get labs drawn and she already called them and they are going to come draw his labs for him. Patient is resting comfortably at this time and SPO2 up to 100 on 2L NC and 92 pulse and 107/82 bp
--- NOTE | 2021-02-05 00:17 | ED.RN ---
THis nurse able to get labs with two butterfly sticks, one on each hand. Tubes sent to lab for eval.
[2021-02-05 00:23] LABS: Absolute Lymphocyte Count 0.79 X10^3/uL (0.83-4.51); Absolute Neutrophil Count 4.6 X10^3/uL (2.0-7.7); Basophil# 0.04 X10^3/uL; Basophil% 0.6 % (0-1); Eosinophil# 0.07 X10^3/uL; Eosinophils% 1.1 % (0-5); Hematocrit 35.4 % (40-54); Hemoglobin 10.9 g/dL (13.0-16.5); Lymphocyte # 0.79 X10^3/ul (0.83-4.51); Mean Corp Hgb Conc 30.8 g/dL (32-36); Mean Corpuscular Hgb 30.1 pg (27.0-32.0); Mean Corpuscular Volume 97.8 fL (80-94); Mean Platelet Vol. 9.9 fl (6.2-12.0); Monocyte# 1.07 X10^3/uL; Monocyte% 16.2 % (0-10); NRBC Flagged by Analyzer 0 % (0-5); Neutrophil # 4.58 X10^3/uL (2.7-7.7); Neutrophil % 69.2 % (47-70); Platelet Count 160 K/mm3 (150-450); RBC Distribution Width CV 18.6 % (11.6-14.6); RBC Distribution Width SD 64.9 fl (35.1-43.9); Red Blood Count 3.62 M/mm3 (4.6-6.2); White Blood Count 6.6 K/mm3 (4.4-11.0)
[2021-02-05 00:35] LABS: Anion Gap 12 (5-15); BUN 73 mg/dL (7-18); BUN/Creat Ratio 6.1 RATIO (10-20); Calcium,Total 9.9 mg/dL (8.5-10.1); Chloride 96 mmol/L (98-107); EST Glomerular Filtration Rate 5 mL/min (>60); Est Glom Filt Rate - Afr Amer 6 mL/min (>60); Estimated Creatinine Clearance 8.69 ml/min; Glucose 92 mg/dL (74-106); Potassium 4.4 mmol/L (3.5-5.1); Sodium Level 137 mmol/L (136-145)
[2021-02-05 00:40] VITALS: BP 81/65; PULSE 98; RESP 20; TEMP 36.6; O2SAT 98
--- NOTE | 2021-02-05 00:43 | ED.RN ---
patient refuses the benadryl and metoclopramide stating he feels it makes him dizzy and he sttes he has been taking tylenol and it has not helped him. He is aware his bp is low and states the 100s/50-60 is his norm but the 80 SBP is low for him and aware we will wait for all tests to come back and make decision at that time.
[2021-02-05 01:04] VITALS: BP 128/45; PULSE 88; RESP 20; O2SAT 97
[2021-02-05] MEDS: Morphine 4 MG/ML Syringe IV (01:25)
[2021-02-05 01:27] VITALS: BP 116/84; PULSE 85; RESP 17; O2SAT 98
[2021-02-05 02:07] VITALS: BP 95/84; PULSE 90; RESP 16; O2SAT 94
[2021-02-05 02:15] VITALS: O2SAT 97
[2021-02-05 03:18] VITALS: BP 104/76; PULSE 84; PULSE 89; RESP 16; TEMP 36.6; O2SAT 96; O2SAT 97
--- NOTE | 2021-02-05 03:37 | ED.RN ---
patient declines further intervention to this nurse and states he is calling his uncle to come get him
== END 2021-02-05 03:56 | disposition home or self-care (01) ==
PROVIDERS: Emergency Provider Emergency Medicine; PCP Internal Medicine
DX: R51.9 Headache, unspecified (principal); R07.9 Chest pain, unspecified; E66.01 Morbid (severe) obesity due to excess calories; I25.10 Atherosclerotic heart disease of native coronary artery without angina pectoris; Z99.2 Dependence on renal dialysis; Z86.718 Personal history of other venous thrombosis and embolism; Z86.711 Personal history of pulmonary embolism; Z79.01 Long term (current) use of 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s
CPT/HCPCS: 70450; 71045; 80048; 84484; 85025; 93005; 96374; 99284; A4216; J3030

== ENCOUNTER 2021-02-08 10:23 | Outpatient (RCR) | payer MEDICARE, MEDICAID, SELFPAY ==
[2021-02-08 11:20] LABS: International Normalized Ratio 1.2; Prothrombin Time (Protime)PT. 14.9 SECONDS (11.7-14.9)
== END 2021-02-08 18:00 | disposition home or self-care (01) ==
LOC: LAB 10:23
PROVIDERS: Internal Medicine Cardiovascular Disease; PCP Internal Medicine; Visit Provider Internal Medicine Cardiovascular Disease
DX: I48.0 Paroxysmal atrial fibrillation (principal); I48.92 Unspecified atrial flutter; Z79.01 Long term (current) use of 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s
CPT/HCPCS: 36415; 85610

== ENCOUNTER 2021-02-12 19:07 | Emergency (ER) | payer MEDICARE, MEDICAID, SELFPAY ==
[2021-02-12 19:09] VITALS: BP 82/59; PULSE 97; RESP 24; TEMP 37.1; O2SAT 100; BMI 42.9
--- NOTE | 2021-02-12 19:43 | EKG12_ITS ---
Test Reason : CP Blood Pressure : / mmHG Vent. Rate : 097 BPM Atrial Rate : 097 BPM P-R Int : 170 ms QRS Dur : 074 ms QT Int : 364 ms P-R-T Axes : 076 136 050 degrees QTc Int : 462 ms Normal sinus rhythm Possible Left atrial enlargement Right axis deviation Poor R wave progression Anterior-Lateral RI, age undetermined, cannot be excluded Abnormal ECG Confirmed by ADALGISA STAHL, GOGO ([id number]), medical editor MARGARITO CHANDLER ([id number]) on 02/13/2021 10:09:50 AM Referred By: Confirmed By:GOGO DIANA MD
--- NOTE | 2021-02-12 19:44 | EDS_ITS ---
HPI History of Present Illness Chief Complaint: Headache Informant: patient Narrative Narrative: 40-year-old male states for 3 weeks he has had a generalized headache. He states he got really concerned I told him that his INR was too low and that he might have a stroke. Despite being really concerned he did not seek any treatment as of today. Last night and into the day he developed developed a midsternal burning chest discomfort which she states has been keeping him up at night. He has a history of end-stage renal disease hypertension and paroxysmal atrial fibrillation. He is on amiodarone and warfarin. 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) Central retinal artery occlusion of left eye (10/09/20) Chronic kidney disease-mineral and bone disorder Chronic pelvic pain in male COVID-19 virus detected (03/20/20) Dialysis patient ESRD on hemodialysis Essential (primary) hypertension Expressive aphasia (04/05/20) Hearing loss Hematuria History of bacterial endocarditis History of blood clots History of non-ST elevation myocardial infarction (NSTEMI) (11/08/19) History of pulmonary embolus (PE) History of venous thromboembolism 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 due to renal insufficiency 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 Mechanical complication of arteriovenous fistula surgically created Mitral valve annular calcification Morbidly obese Non compliance w medication regimen Nonrheumatic mitral valve stenosis with insufficiency Obstructive sleep apnea Paroxysmal atrial fibrillation (06/10/20) Paroxysmal atrial flutter 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) Pelvic mass Unspecified symptoms and signs involving cognitive functions and awareness (04/05/20) Home Medications ferric citrate 630 mg PO TIDCM 02/05/19 [History Last Taken 09/29/20 09:00 210 mg] warfarin 7.5 mg PO DAILY 10/06/20 [History Last Taken 10/05/20 21:00] brimonidine 1 drp LEFT EYE TID #1 bottle 10/09/20 [Rx Last Taken Unknown] acetaminophen 650 mg PO Q6H PRN PRN tablet 12/25/20 [Rx Last Taken Unknown] atorvastatin 20 mg tablet 20 mg PO QHS tab 01/30/21 [History Last Taken Unknown] oxycodone 5 mg tablet 5 mg PO DAILY PRN 01/30/21 [History Last Taken 02/08/21] valacyclovir 1 gram tablet 1,000 mg PO DAILY 01/30/21 [History Last Taken Unknown] amiodarone [Pacerone] 200 mg PO DAILY 02/12/21 [History Last Taken Unknown] rimegepant [Nurtec ODT] 75 mg PO X1 PRN #5 tab 02/12/21 [Rx Last Taken Unknown] Allergy/AdvReac Type Severity Reaction Status Date / Time No Known Allergies Allergy Verified 02/12/21 19:09 Family History Other Adopted Surgical History History of cardioversion (12/02/18) history of cather replacement History of herniorrhaphy History of left heart catheterization (09/17/18) History of repair of congenital cleft palate Mechanical complication of dialysis catheter Status post creation of arteriovenous fistula Social History Smoking Status: Never smoker alcohol intake: never substance use type: marijuana what type of physical activity do you participate in: none ROS ROS ED Constitutional Constitutional ED: Denies chills or weight loss Eyes Eyes: Denies change in vision or diplopia ENT ENT ED: Denies ear pain, rhinorrhea or sore throat Cardiovascular Cardiovascular: Reports chest pain; Denies orthopnea, palpitations or racing heartbeat Respiratory/Chest Respiratory/Chest: Denies cough, dyspnea or orthopnea Gastrointestinal Gastrointestinal: Denies abdominal pain, diarrhea, nausea or vomiting Genitourinary Genitourinary ED: Denies dysuria, hematuria or urinary frequency Musculoskeletal Musculoskeletal: Denies arthralgias or myalgias Integumentary Denies abscess or rash Neurologic Neurologic: Reports headache(s); Denies weakness Psychiatric Psychiatric: Denies anxiety, depression, suicidal ideation or suicidal thoughts Endocrine Endocrinology: Denies polydipsia, polyphagia or polyuria Allergic/Immunologic Allergic/Immunologic ED: Denies mouth swelling, tongue swelling or urticaria EXAM Physical Exam Const Vital Signs: 02/12/21 19:09 02/12/21 20:55 Temperature 98.7 F Temperature Source Temporal Pulse Rate 97 82 Respiratory Rate 24 H 24 H Blood Pressure 82/59 L 91/43 L Blood Pressure Mean 66 59 Pulse Ox 100 94 Oxygen Delivery Method Room Air Room Air Positive well nourished, well developed and obese General Appearance ED: well developed Nutritional Appearance: obese HEENT Reports normocephalic, head/scalp atraumatic and moist mucous membranes Eyes PERRL and EOMs intact bilaterally Neck no lymphadenopathy, supple and no JVD Resp normal respiratory effort and clear to auscultation bilaterally Cardio regular rate, regular rhythm and no murmurs GI normal to inspection, nondistended, normoactive bowel sounds and non-tender Palpation: soft Back/Spine no CVA tenderness and normal ROM Extremity normal to inspection Extremity Narrative: Fistula present positive thrill General Extremety ED: Negative for edema General Extremity: Negative for edema Neuro oriented x3 and CN's II-XII intact bilaterally Sensorium / Orientation: alert Motor Exam: strength 5/5 throughout Psych mental status grossly normal Mood & Affect: Negative for depressed or tearful Skin no rashes or lesions noted and no wounds MDM MDM MDM Narrative Medical decision making narrative: GI cocktail did not provide the patient any relief. His troponin is negative. CT the brain was read by radiology reviewed by myself as no acute or subacute stroke. My interpretation of the chest x-ray is no acute disease. INR is slightly supratherapeutic at 3.3. Advised him to hold his Coumadin dose tonight and tomorrow night. He refused Reglan and Benadryl for his headache stating that that will help him. Patient was advised that he will need further evaluation of his daily headaches. Lab Data Attestation: I reviewed the patient's lab results. Labs: Laboratory Results - last 24 hr 02/12/21 02/12/21 02/12/21 20:47 20:47 20:47 WBC 9.4 RBC 3.79 L Hgb 11.5 L Hct 36.7 L MCV 96.8 H MCH 30.3 MCHC 31.3 L RDW Std Deviation 66.4 H RDW Coeff of Lance 19.3 H Plt Count 181 MPV 10.4 Immature Gran % (Auto) 0.400 Neut % (Auto) 81.9 H Lymph % (Auto) 7.0 L [place] % (Auto) 9.5 Eos % (Auto) 0.9 Baso % (Auto) 0.3 Absolute Neuts (auto) 7.7 Absolute Lymphs (auto) 0.66 L Nucleated RBC % 0 PT 32.9 H INR 3.3 Sodium 133 L Potassium 4.2 Chloride 94 L Carbon Dioxide 33.0 H Anion Gap 6 BUN 29 H Creatinine 7.38 H Estim Creat Clear Calc 14.01 Est GFR (MDRD) Af Amer 11 L Est GFR (MDRD) Non-Af 9 L BUN/Creatinine Ratio 3.9 L Glucose 90 Calcium 9.7 Troponin I < 0.015 Radiography Diagnostic Testing: Radiology Impression Brain CT 02/12/21 20:10 IMPRESSION: Mild cortical atrophy and periventricular white matter ischemic change. No evidence for obstructive hydrocephalus mass or acute bleed. Electronically Signed: Harpreet Brian MD at 20:35 EDT , Service support , Chest X-Ray 02/12/21 20:13 IMPRESSION: Mild nonspecific interstitial thickening more pronounced in the lower lobes. No focal infiltration or evidence for gross pulmonary edema. Electronically Signed: Harpreet Brian MD at 21:08 EDT , Service support , EKG Initial EKG: Attestation: I personally reviewed and interpreted this EKG as follows: Comments: EKG shows a normal sinus rhythm at a rate of 97. Discharge Plan Triage Chief Complaint: Headache Other Complaint: Chest Pain ED Provider: Maxi Villalba Dx/Rx/DC Orders Clinical Impression: Chest pain, Daily headache, ESRD on hemodialysis Instructions: ED Chest Pain, Uncertain Cause, ED Headache Unspecified Prescriptions: New Nurtec ODT 75 mg tablet,disintegrating 75 mg PO X1 PRN (Reason: migraine headache) Qty: 5 RF: 0 No Action valacyclovir [Valtrex] 1 gram tablet 1,000 mg PO DAILY RF: 0 oxycodone 5 mg tablet 5 mg PO DAILY PRN (Reason: Pain) RF: 0 atorvastatin 20 mg tablet 20 mg PO QHS RF: 0 ferric citrate 210 MG tablet 630 mg PO TIDCM RF: 0 warfarin 5 MG tablet 7.5 mg PO DAILY RF: 0 brimonidine 1 DROP bottle 1 drp LEFT EYE TID Qty: 1 RF: 0 acetaminophen 325 MG tablet 650 mg PO Q6H PRN PRN (Reason: Pain Score 1-10/Temp > 100.7 F) RF: 0 amiodarone [Pacerone] 200 mg tablet 200 mg PO DAILY RF: 0 Primary Care Provider: Pawel Banda Referrals: Pawel Banda MD [Primary Care Provider] - As soon as possible Disposition Disposition: Home, self care
[2021-02-12] MEDS: Mag Hydrox/Al Hydrox/Simeth 30 ML UDC PO (19:53)
--- NOTE | 2021-02-12 20:10 | CT_ITS ---
STUDY: CT BRAIN WITHOUT CONTRAST REASON FOR EXAM: Male, 40 years old. headache on coumadin RADIATION DOSAGE (If Supplied By Facility): CTDIvol = ( 44.99 ) mGy, DLP = ( 846.73 ) mGycm TECHNIQUE: Transaxial CT imaging of the brain was performed without administration of intravenous contrast material. Individualized dose optimization techniques were used for this CT. COMPARISON: 02/04/2021 FINDINGS: Normal soft tissue structures. Normal calvarium. Mild cortical atrophy and periventricular white matter ischemic changes.. Normal basal ganglia and thalami. Normal brainstem. Normal cerebellum. Empty sella deformity of uncertain clinical significance There is no intracranial hemorrhage. There are no findings of an acute ischemic infarction. Bilateral orbital choroidal calcifications. Normal visualized paranasal sinuses. CT/Brain/Head without Contrast IMPRESSION: Mild cortical atrophy and periventricular white matter ischemic change. No evidence for obstructive hydrocephalus mass or acute bleed. Electronically Signed: Harpreet Brian MD at 20:35 EDT , Service support ,
--- NOTE | 2021-02-12 20:13 | RAD_ITS ---
STUDY: X-RAY CHEST REASON FOR EXAM: Male, 40 years old. chest pain TECHNIQUE: AP portable COMPARISON: 02/04/2021 FINDINGS: Mild prominence of interstitial markings most pronounced the mid and lower lung zones. There is no demonstrated pleural abnormality. Normal size heart. Normal mediastinum and michael. Normal visualized pulmonary arteries. Normal visualized aortic arch and descending thoracic aorta. Dorsal spine demonstrates scoliosis Normal visualized ribs, and clavicles. Posttraumatic deformity of left shoulder. There is no demonstrated abnormality of the visualized soft tissue structures of the upper abdomen. There is improved aeration when compared to previous exam RAD/Chest 1 View (Portable) IMPRESSION: Mild nonspecific interstitial thickening more pronounced in the lower lobes. No focal infiltration or evidence for gross pulmonary edema. Electronically Signed: Harpreet Brian MD at 21:08 EDT , Service support ,
[2021-02-12 20:55] VITALS: BP 91/43; PULSE 82; RESP 24; O2SAT 94
[2021-02-12 20:58] LABS: Absolute Lymphocyte Count 0.66 X10^3/uL (0.83-4.51); Absolute Neutrophil Count 7.7 X10^3/uL (2.0-7.7); Basophil# 0.03 X10^3/uL; Basophil% 0.3 % (0-1); Eosinophil# 0.08 X10^3/uL; Eosinophils% 0.9 % (0-5); Hematocrit 36.7 % (40-54); Hemoglobin 11.5 g/dL (13.0-16.5); Lymphocyte # 0.66 X10^3/ul (0.83-4.51); Mean Corp Hgb Conc 31.3 g/dL (32-36); Mean Corpuscular Hgb 30.3 pg (27.0-32.0); Mean Corpuscular Volume 96.8 fL (80-94); Mean Platelet Vol. 10.4 fl (6.2-12.0); Monocyte# 0.89 X10^3/uL; Monocyte% 9.5 % (0-10); NRBC Flagged by Analyzer 0 % (0-5); Neutrophil # 7.69 X10^3/uL (2.7-7.7); Neutrophil % 81.9 % (47-70); POSITIVE MORPHOLOGY YES; Platelet Count 181 K/mm3 (150-450); RBC Distribution Width CV 19.3 % (11.6-14.6); RBC Distribution Width SD 66.4 fl (35.1-43.9); Red Blood Count 3.79 M/mm3 (4.6-6.2); White Blood Count 9.4 K/mm3 (4.4-11.0)
[2021-02-12 21:08] LABS: Differential Indicated SCAN CRITERIA MET
[2021-02-12 21:20] LABS: Anion Gap 6 (5-15); BUN 29 mg/dL (7-18); BUN/Creat Ratio 3.9 RATIO (10-20); Calcium,Total 9.7 mg/dL (8.5-10.1); Chloride 94 mmol/L (98-107); Creatinine, Serum 7.38 mg/dL (0.70-1.30); EST Glomerular Filtration Rate 9 mL/min (>60); Est Glom Filt Rate - Afr Amer 11 mL/min (>60); Estimated Creatinine Clearance 14.01 ml/min; Glucose 90 mg/dL (74-106); International Normalized Ratio 3.3; Potassium 4.2 mmol/L (3.5-5.1); Prothrombin Time (Protime)PT. 32.9 SECONDS (11.7-14.9); Sodium Level 133 mmol/L (136-145)
[2021-02-12 21:30] VITALS: BP 101/43; PULSE 95; RESP 20; O2SAT 94
[2021-02-12 21:32] LABS: Differential Comment SCANNED
== END 2021-02-12 21:51 | disposition home or self-care (01) ==
PROVIDERS: Emergency Provider Emergency Medicine; PCP Internal Medicine
DX: R07.9 Chest pain, unspecified (principal); R51.9 Headache, unspecified; I12.0 Hypertensive chronic kidney disease with stage 5 chronic kidney disease or end stage renal disease; N18.6 End stage renal disease; I48.0 Paroxysmal atrial fibrillation; D63.8 Anemia in other chronic diseases classified elsewhere; G89.29 Other chronic pain; R10.2 Pelvic and perineal pain; E66.01 Morbid (severe) obesity due to excess calories; G47.33 Obstructive sleep apnea (adult) (pediatric); Z91.14 Patient's other noncompliance with medication regimen; Z99.2 Dependence on renal dialysis; Z79.01 Long term (current) use of 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s; Z79.899 Other long term (current) drug therapy; I25.2 Old myocardial infarction; Z86.16 Personal history of COVID-19; Z86.718 Personal history of other venous thrombosis and embolism; Z86.711 Personal history of pulmonary embolism
CPT/HCPCS: 36415; 70450; 71045; 80048; 84484; 85025; 85610; 93005; 99285; A4216

== ENCOUNTER 2021-02-14 11:49 | Inpatient (IN) | payer MEDICARE, MEDICAID, SELFPAY ==
[2021-02-14] VITALS (23 sets, daily range): BP systolic 68–123; BP diastolic 21–93; PULSE 87–94; RESP 16–25; TEMP 36.3–37.1; O2SAT 92–100; BMI 41.4; BMI 42.3
--- NOTE | 2021-02-14 12:10 | CT_ITS ---
STUDY: CT ABDOMEN AND PELVIS WITHOUT CONTRAST REASON FOR EXAM: Male, 40 years old. RLQ pain RADIATION DOSAGE (If Supplied By Facility): CTDIvol = ( 22.58 ) mGy, DLP = ( 1149.10 ) mGycm TECHNIQUE: Transaxial images were obtained from the dome of the diaphragm to the symphysis pubis without oral contrast, and without intravenous contrast. Sagittal and coronal images were reconstructed. Individualized dose optimization techniques were used for this CT. COMPARISON: 12/21/2020 FINDINGS: Interstitial edema noted in the lung bases suggesting pulmonary vascular congestion. The visualized portions of the heart are within normal limits. Stable varicosities noted in the body wall. Normal liver. Normal gallbladder and extrahepatic biliary system. Normal spleen. Normal pancreas. Normal bilateral adrenal glands. No obstructive uropathy. Stable bilateral renal cysts. Kidneys again show evidence of medical renal disease. Normal visualized stomach. Normal small intestine. Retained stool noted throughout the colon. The appendix is visualized and appears normal. Appendix best seen on coronal recon images 95-103 Normal abdominal aorta. Normal inferior vena cava. Normal retroperitoneum. Normal urinary bladder. Normal abdominal wall. Persistent degenerative changes in the lumbar spine and pelvis. Findings could be due to renal osteodystrophy or hyperparathyroidism. CT/Abdomen/Pelvis without Cont IMPRESSION: Persistent evidence of suspect medical renal disease with some cortical thinning, hyperdense cortices and stable simple cysts. No specific follow-up for the simple cysts needed. Bony structures show degenerative change suggesting osteodystrophy Retained stool in the colon Normal appendix visualized Interstitial edema in the lung bases suggesting pulmonary vascular congestion Electronically Signed: Luther Ferrer MD at 13:34 EDT , Service support ,
--- NOTE | 2021-02-14 12:10 | RAD_ITS ---
STUDY: X-RAY CHEST REASON FOR EXAM: Male, 40 years old. Worsening shortness of breath TECHNIQUE: Single AP portable view of the chest. COMPARISON: 02/12/2021 FINDINGS: EKG leads overlie the chest Lungs are expanded with superimposed interstitial and airspace opacifications. No demonstrated effusion. Normal size heart. Normal mediastinum and michael. Normal visualized pulmonary arteries. Normal visualized aortic arch and descending thoracic aorta. There are diffuse degenerative changes of the visualized thoracic spine. Normal visualized ribs, clavicles, and shoulders. There is no demonstrated abnormality of the visualized soft tissue structures of the upper abdomen. RAD/Chest 1 View (Portable) IMPRESSION: Interstitial and airspace opacifications in both lung page. Follow-up recommended to assure resolution. Findings can BE seen with CHF, multifocal pneumonitis or Covid Electronically Signed: Luther Ferrer MD at 13:28 EDT , Service support ,
--- NOTE | 2021-02-14 12:10 | EKG12_ITS ---
Test Reason : CP Blood Pressure : / mmHG Vent. Rate : 095 BPM Atrial Rate : 095 BPM P-R Int : 184 ms QRS Dur : 074 ms QT Int : 356 ms P-R-T Axes : 067 142 048 degrees QTc Int : 447 ms Normal sinus rhythm Possible Left atrial enlargement Anterolateral infarct , age undetermined Abnormal ECG Confirmed by CHANDA STAHL, ZIA ([id number]), communications editor MARGARITO CHANDLER ([id number]) on 02/16/2021 12:38:18 P M Referred By: TRUNG Confirmed By:LAUREN ARMAS MD
--- NOTE | 2021-02-14 12:12 | EDS_ITS ---
HPI History of Present Illness Chief Complaint: Wound Detail of Chief Complaint: Generalized weakness, I think I am septic Informant: patient Onset/Context/Timing Onset: Days Context: Gradual Onset Current Severity: Moderate Maximum Severity: Moderate Narrative Narrative: Patient reports recent illness with generally not feeling well and frequent headaches. He does have a wound on his back that he is following at the wound center for. Patient was seen in the ER for headaches as well as chest pain twice in the last week or so. Patient states that he got abdominal pain and vomited last night while he was at work. He went to the emergency room in [place] and was discharged with 3 prescriptions. He woke this morning not feeling well with chills. He went to his appointment at the wound center and they sent him here for evaluation. Patient states he is still weak was having a difficult time walking. Patient is dialysis dependent and goes for his rounds on Friday, Friday, and Friday. His last run was 2 days ago, on Friday. [facility] Medical History (Updated 02/14/21 @ 15:[address] 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) Central retinal artery occlusion of left eye (10/09/20) Chronic kidney disease-mineral and bone disorder Chronic pelvic pain in male COVID-19 virus detected (03/20/20) Dialysis patient ESRD on hemodialysis Essential (primary) hypertension Expressive aphasia (04/05/20) Hearing loss Hematuria History of bacterial endocarditis History of blood clots History of non-ST elevation myocardial infarction (NSTEMI) (11/08/19) History of pulmonary embolus (PE) History of venous thromboembolism 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 due to renal insufficiency 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 skilled nursing current use of 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 Mechanical complication of arteriovenous fistula surgically created Mitral valve annular calcification Morbidly obese Non compliance w medication regimen Non-healing non-surgical wound Nonrheumatic mitral valve stenosis with insufficiency Obstructive sleep apnea Paroxysmal atrial fibrillation (06/10/20) Paroxysmal atrial flutter 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) Pelvic mass Unspecified symptoms and signs involving cognitive functions and awareness (04/05/20) Home Medications ferric citrate 630 mg PO TIDCM 02/05/19 [History Last Taken 09/29/20 09:00 210 mg] warfarin 7.5 mg PO DAILY 10/06/20 [History Last Taken 10/05/20 21:00] brimonidine 1 drp LEFT EYE TID #1 bottle 10/09/20 [Rx Last Taken Unknown] acetaminophen 650 mg PO Q6H PRN PRN tablet 12/25/20 [Rx Last Taken Unknown] atorvastatin 20 mg tablet 20 mg PO QHS tab 01/30/21 [History Last Taken Unknown] oxycodone 5 mg tablet 5 mg PO DAILY PRN 01/30/21 [History Last Taken 02/08/21] valacyclovir 1 gram tablet 1,000 mg PO DAILY 01/30/21 [History Last Taken Unknown] amiodarone [Pacerone] 200 mg PO DAILY 02/12/21 [History Last Taken Unknown] rimegepant [Nurtec ODT] 75 mg PO X1 PRN #5 tab 02/12/21 [Rx Last Taken Unknown] Allergy/AdvReac Type Severity Reaction Status Date / Time No Known Allergies Allergy Verified 02/12/21 19:09 Family History Other Adopted Surgical History History of cardioversion (12/02/18) history of cather replacement History of herniorrhaphy History of left heart catheterization (09/17/18) History of repair of congenital cleft palate Mechanical complication of dialysis catheter Status post creation of arteriovenous fistula Social History Smoking Status: Never smoker alcohol intake: never substance use type: marijuana what type of physical activity do you participate in: none ROS ROS ED Constitutional Constitutional ED: Reports chills Eyes Eyes: Denies change in vision ENT ENT ED: Denies ear pain Cardiovascular Cardiovascular: Denies palpitations or racing heartbeat Respiratory/Chest Respiratory/Chest: Denies dyspnea Gastrointestinal Gastrointestinal: Reports abdominal pain, nausea and vomiting Genitourinary Genitourinary ED: Denies dysuria or hematuria Integumentary Reports other Details: Wound on back Neurologic Neurologic: Reports headache(s) and weakness EXAM Physical Exam Const Vital Signs: 02/14/21 11:50 02/14/21 12:05 02/14/21 12:53 Temperature 97.4 F L 97.9 F Temperature Source Temporal Oral Pulse Rate 94 93 Respiratory Rate 16 21 H Respiratory Effort Normal Non-Labored Respiratory Pattern Normal Blood Pressure 101/49 L 109/68 Blood Pressure Mean 66 81 Pulse Ox 100 96 Oxygen Delivery Method Room Air Room Air Positive well nourished and well developed General Appearance ED: well developed Eyes EOMs intact bilaterally Neck supple Chest Wall inspection of chest normal and palpation of chest normal Resp normal respiratory effort and clear to auscultation bilaterally Cardio regular rate and regular rhythm GI Palpation: tender RLQ Neuro oriented x3 Sensorium / Orientation: alert Psych mental status grossly normal Skin General Skin Exam: other 1 x 3 cm superficial wound to the right lower back. No purulence. No surrounding cellulitis. MDM MDM MDM Narrative Medical decision making narrative: Lab work and blood cultures were obtained on arrival. Because of right lower quadrant abdominal pain on exam CT scan of the flank was obtained. Patient advises that wound cultures of his back wound were obtained at the wound center just prior to arrival. Lab Data Attestation: I reviewed the patient's lab results. Labs: Laboratory Results - last 24 hr 02/14/21 02/14/21 02/14/21 12:55 12:55 12:55 WBC 17.8 H RBC 4.25 L Hgb 12.8 L Hct 41.8 MCV 98.4 H MCH 30.1 MCHC 30.6 L RDW Std Deviation 69.3 H RDW Coeff of Lance 19.4 H Plt Count 193 MPV 11.1 Immature Gran % (Auto) 1.300 H Neut % (Auto) 88.0 H Lymph % (Auto) 1.3 L [place] % (Auto) 9.1 Eos % (Auto) 0.1 Baso % (Auto) 0.2 Absolute Neuts (auto) 15.7 H Absolute Lymphs (auto) 0.23 L Nucleated RBC % 0 Diff Path Review May foll Anisocytosis 2+ PT INR Sodium Cancelled Potassium Cancelled Chloride Cancelled Carbon Dioxide Cancelled Anion Gap Cancelled BUN Cancelled Creatinine Cancelled Estim Creat Clear Calc Cancelled Est GFR (MDRD) Af Amer Cancelled Est GFR (MDRD) Non-Af Cancelled BUN/Creatinine Ratio Cancelled Glucose Cancelled Lactic Acid Cancelled Calcium Cancelled 02/14/21 02/14/21 02/14/21 12:55 13:40 13:40 WBC RBC Hgb Hct MCV MCH MCHC RDW Std Deviation RDW Coeff of Lance Plt Count MPV Immature Gran % (Auto) Neut % (Auto) Lymph % (Auto) [place] % (Auto) Eos % (Auto) Baso % (Auto) Absolute Neuts (auto) Absolute Lymphs (auto) Nucleated RBC % Diff Path Review Anisocytosis PT 36.1 H INR 3.7 Sodium Cancelled Potassium Cancelled Chloride Cancelled Carbon Dioxide Cancelled Anion Gap Cancelled BUN Cancelled Creatinine Cancelled Estim Creat Clear Calc Cancelled Est GFR (MDRD) Af Amer Cancelled Est GFR (MDRD) Non-Af Cancelled BUN/Creatinine Ratio Cancelled Glucose Cancelled Lactic Acid 3.5 H* Calcium Cancelled 02/14/21 14:46 WBC RBC Hgb Hct MCV MCH MCHC RDW Std Deviation RDW Coeff of Lance Plt Count MPV Immature Gran % (Auto) Neut % (Auto) Lymph % (Auto) [place] % (Auto) Eos % (Auto) Baso % (Auto) Absolute Neuts (auto) Absolute Lymphs (auto) Nucleated RBC % Diff Path Review Anisocytosis PT INR Sodium 134 L Potassium 5.7 H Chloride 92 L Carbon Dioxide 31.0 Anion Gap 11 BUN 51 H Creatinine 12.10 H* Estim Creat Clear Calc 8.55 Est GFR (MDRD) Af Amer 6 L Est GFR (MDRD) Non-Af 5 L BUN/Creatinine Ratio 4.2 L Glucose 106 Lactic Acid Calcium 10.3 H Radiography Chest X-Ray - ED: 1 View, Read by ED Physician and CHF Diagnostic Testing: Radiology Impression Abdomen/Pelvis CT 02/14/21 12:10 IMPRESSION: Persistent evidence of suspect medical renal disease with some cortical thinning, hyperdense cortices and stable simple cysts. No specific follow-up for the simple cysts needed. Bony structures show degenerative change suggesting osteodystrophy Retained stool in the colon Normal appendix visualized Interstitial edema in the lung bases suggesting pulmonary vascular congestion Electronically Signed: Luther Ferrer MD at 13:34 EDT , Service support , Chest X-Ray 02/14/21 12:10 IMPRESSION: Interstitial and airspace opacifications in both lung page. Follow-up recommended to assure resolution. Findings can BE seen with CHF, multifocal pneumonitis or Covid Electronically Signed: Luther Ferrer MD at 13:28 EDT , Service support , EKG Initial EKG: Attestation: I personally reviewed and interpreted this EKG as follows: Interpretation: Sinus Rhythm (Sinus at [address] change.) Treatment and Re-Evaluation Comments:: Patient placed on cafeteria monitor. He was initially not given fluids secondary to his dialysis status. White count is significantly elevated at 17. Creatinine is 12 with a potassium of 5.7. EKG largely unremarkable. At this time I do not have a definitive source of infection. He is given Zosyn and vancomycin while awaiting blood cultures. I will speak with nephrology to notify them patient will need dialysis on admission. Hospitalist is also on page. Discharge Plan Triage Chief Complaint: Wound ED Provider: Giuliana Pink Dx/Rx/DC Orders Clinical Impression: SIRS (systemic inflammatory response syndrome) Prescriptions: No Action valacyclovir [Valtrex] 1 gram tablet 1,000 mg PO DAILY RF: 0 oxycodone 5 mg tablet 5 mg PO DAILY PRN (Reason: Pain) RF: 0 atorvastatin 20 mg tablet 20 mg PO QHS RF: 0 ferric citrate 210 MG tablet 630 mg PO TIDCM RF: 0 warfarin 5 MG tablet 7.5 mg PO DAILY RF: 0 brimonidine 1 DROP bottle 1 drp LEFT EYE TID Qty: 1 RF: 0 acetaminophen 325 MG tablet 650 mg PO Q6H PRN PRN (Reason: Pain Score 1-10/Temp > 100.7 F) RF: 0 amiodarone [Pacerone] 200 mg tablet 200 mg PO DAILY RF: 0 Nurtec ODT 75 mg tablet,disintegrating 75 mg PO X1 PRN (Reason: migraine headache) Qty: 5 RF: 0 Primary Care Provider: Pawel Banda Referrals: Pawel Banda MD [Primary Care Provider] - Disposition Disposition: Acute Care Hospital [facility]
[2021-02-14 13:19] LABS: Absolute Lymphocyte Count 0.23 X10^3/uL (0.83-4.51); Absolute Neutrophil Count 15.7 X10^3/uL (2.0-7.7); Basophil# 0.04 X10^3/uL; Basophil% 0.2 % (0-1); Eosinophil# 0.01 X10^3/uL; Eosinophils% 0.1 % (0-5); Hematocrit 41.8 % (40-54); Hemoglobin 12.8 g/dL (13.0-16.5); Lymphocyte # 0.23 X10^3/ul (0.83-4.51); Lymphocyte % 1.3 % (19-41); Mean Corp Hgb Conc 30.6 g/dL (32-36); Mean Corpuscular Hgb 30.1 pg (27.0-32.0); Mean Corpuscular Volume 98.4 fL (80-94); Mean Platelet Vol. 11.1 fl (6.2-12.0); Monocyte# 1.62 X10^3/uL; Monocyte% 9.1 % (0-10); NRBC Flagged by Analyzer 0 % (0-5); POSITIVE DIFFERENTIAL YES; POSITIVE MORPHOLOGY YES; Platelet Count 193 K/mm3 (150-450); RBC Distribution Width CV 19.4 % (11.6-14.6); RBC Distribution Width SD 69.3 fl (35.1-43.9); Red Blood Count 4.25 M/mm3 (4.6-6.2); White Blood Count 17.8 K/mm3 (4.4-11.0)
[2021-02-14 13:24] LABS: International Normalized Ratio 3.7; Prothrombin Time (Protime)PT. 36.1 SECONDS (11.7-14.9)
[2021-02-14 13:31] LABS: Differential Indicated SCAN CRITERIA MET
--- NOTE | 2021-02-14 13:35 | NURSING ---
GREEN TOP AND LACTIC ACID HEMOLIZED
[2021-02-14] MEDS: Morphine 4 MG/ML Syringe IV (13:48)
[2021-02-14] MEDS: proMETHazine 25 MG Tablet 12.5 MG PO (13:48)
[2021-02-14 13:49] LABS: Anisocytosis 2+
[2021-02-14 14:17] LABS: Lactic Acid 3.5 mmol/L (0.4-1.9)
[2021-02-14 15:18] LABS: Anion Gap 11 (5-15); BUN 51 mg/dL (7-18); BUN/Creat Ratio 4.2 RATIO (10-20); Calcium,Total 10.3 mg/dL (8.5-10.1); Chloride 92 mmol/L (98-107); EST Glomerular Filtration Rate 5 mL/min (>60); Est Glom Filt Rate - Afr Amer 6 mL/min (>60); Estimated Creatinine Clearance 8.55 ml/min; Glucose 106 mg/dL (74-106); Potassium 5.7 mmol/L (3.5-5.1); Sodium Level 134 mmol/L (136-145)
--- NOTE | 2021-02-14 15:24 | NURSING ---
HOSPITALIST PAGED DR DEE PAGEByron
--- NOTE | 2021-02-14 15:53 | HP.PCM.HOS_ITS ---
HPI - General General Date of Admission: 02/14/21 HPI Narrative REJI SPAIN, is a 40 M with a PMH as outlined who presents via the Ed on 02/14/2021 with a complaint of generalised malaise and weakness. Patient states he is generally not been well for the past 3 days and has also had frequent headaches and just generalized malaise. He has been seen in the ER a couple of times for chest pain and headache over the last week and was sent home. He states that he went to the ER in [place] the night before admission after he got abdominal pain and vomiting at work and states he was discharged with some prescriptions but he is not sure what they are. He started having chills this morning and went to the wound clinic on account of a small wound on his back. He was sent to the ER for evaluation on account of patient having a fever and chills and generally not feeling well. He denies any nausea vomiting, coughing, chest pain, abdominal pain or diarrhea. Patient does not make any urine. He has ESRD and states he is noncompliant with dialysis and last had dialysis 2 days ago on Friday and is due for dialysis today. In the ER, vitals showed blood pressure 104/74, pulse rate of 94 respiratory of 19 with temperature of 97.8 Fahrenheit. He was saturating at 96% on 2 L of oxygen. CBC showed WBC of 17.8. WBC 2 days ago which is 9.4. Hemoglobin is 12.8 and platelets are 193. Chemistry showed sodium of 134 with potassium of 5.7 and creatinine of 12. Blood cultures were obtained and patient was started on IV vancomycin and Zosyn. He is being admitted to be managed for sepsis of unclear etiology. After patient was admitted to the PCU, patient became hypotensive with blood pressure going to drop in 3-4 over 42. He was given a bolus of fluid of 1 L but patient did not respond to this. He was therefore transferred to the ICU to be managed for septic shock with unclear etiology. He was started on low-dose Levophed through the peripheral line. Critical care consulted. [facility] Medical History (Updated 02/14/21 @ 15:[address] 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) Central retinal artery occlusion of left eye (10/09/20) Chronic kidney disease-mineral and bone disorder Chronic pelvic pain in male COVID-19 virus detected (03/20/20) Dialysis patient ESRD on hemodialysis Essential (primary) hypertension Expressive aphasia (04/05/20) Hearing loss Hematuria History of bacterial endocarditis History of blood clots History of non-ST elevation myocardial infarction (NSTEMI) (11/08/19) History of pulmonary embolus (PE) History of venous thromboembolism 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 due to renal insufficiency 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 Mechanical complication of arteriovenous fistula surgically created Mitral valve annular calcification Morbidly obese Non compliance w medication regimen Non-healing non-surgical wound Nonrheumatic mitral valve stenosis with insufficiency Obstructive sleep apnea Paroxysmal atrial fibrillation (06/10/20) Paroxysmal atrial flutter 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) Pelvic mass Unspecified symptoms and signs involving cognitive functions and awareness (04/05/20) Home Medications ferric citrate 630 mg PO TIDCM 02/05/19 [History Last Taken 02/13/21] warfarin 7.5 mg PO DAILY 10/06/20 [History Last Taken 02/13/21] brimonidine 1 drp LEFT EYE TID #1 bottle 10/09/20 [Rx Last Taken 02/13/21] oxycodone 5 mg tablet 5 mg PO DAILY PRN 01/30/21 [History Last Taken 02/08/21] amiodarone [Pacerone] 200 mg PO DAILY 02/12/21 [History Last Taken 02/13/21] rimegepant [Nurtec ODT] 75 mg PO X1 PRN #5 tab 02/12/21 [Rx Last Taken Unknown] acetaminophen [Tylenol Extra Strength] 1,000 - 1,500 mg PO TID 02/14/21 [History Last Taken 02/12/21] midodrine 5 mg PO TID 02/14/21 [History Last Taken 02/13/21] Allergy/AdvReac Type Severity Reaction Status Date / Time No Known Allergies Allergy Verified 02/12/21 19:09 Family History Other Adopted Surgical History History of cardioversion (12/02/18) history of cather replacement History of herniorrhaphy History of left heart catheterization (09/17/18) History of repair of congenital cleft palate Mechanical complication of dialysis catheter Status post creation of arteriovenous fistula Social History Smoking Status: Never smoker alcohol intake: never substance use type: marijuana what type of physical activity do you participate in: none ROS Constitutional Constitutional: Reports chills, fatigue, fever(s), malaise and weakness; Denies anorexia or change in weight ENT HEENT: Denies ear pain, headache(s), nasal congestion, nasal discharge or sore throat Cardiovascular Cardiovascular: Denies chest pain, claudication, dyspnea on exertion, edema, lightheadedness, orthopnea, palpitations, paroxysmal nocturnal dyspnea or rapid heart rate Respiratory/Chest Respiratory/Chest: Denies cough, dyspnea, productive cough, shortness of breath at rest or shortness of breath with exertion Gastrointestinal Gastrointestinal: Denies abdominal pain, constipation, dyspepsia, loose stools, nausea or vomiting Genitourinary Genitourinary: Reports burning urination, difficulty urinating, urinary frequency and other Details: doesnt make urine Musculoskeletal Musculoskeletal: Denies arthralgias, back pain, joint swelling or myalgias Neurologic Neurologic: Denies abnormal speech, confusion, dizziness, focal weakness or seizure-like activity Psychiatric Psychiatric: Denies anxiety or depression Endocrine Endocrinology: Denies change in body appearance Hematologic/Lymphatic Hematologic/Lymphatic: Denies anemia Vital Signs Vital Signs Vital Signs: 02/14/21 11:50 02/14/21 12:05 02/14/21 12:53 Temperature 97.4 F L 97.9 F Temperature Source Temporal Oral Pulse Rate 94 93 Respiratory Rate 16 21 H Respiratory Effort Normal Non-Labored Respiratory Pattern Normal Blood Pressure 101/49 L 109/68 Blood Pressure Mean 66 81 Pulse Ox 100 96 Oxygen Delivery Method Room Air Room Air Oxygen Flow Rate (L/min) 02/14/21 14:00 02/14/21 15:00 02/14/21 15:38 Temperature 98.8 F 98.5 F 97.8 F Temperature Source Temporal Temporal Temporal Pulse Rate 91 91 94 Respiratory Rate 16 18 19 H Respiratory Effort Respiratory Pattern Blood Pressure 123/93 H 103/74 104/74 Blood Pressure Mean 103 83 84 Pulse Ox 98 96 96 Oxygen Delivery Method Nasal Cannula Nasal Cannula Nasal Cannula Oxygen Flow Rate (L/min) 2 2 2 Physical Exam Const alert, oriented x3 and no apparent distress General Appearance: cooperative Orientation / Consciousness: lethargic HEENT normocephalic, head/scalp atraumatic, hearing grossly normal bilaterally and moist oral mucous membranes Eyes PERRL, EOMs intact bilaterally and conjunctivae normal Neck no lymphadenopathy, supple and no JVD Resp normal respiratory effort, no retractions, no use of accessory muscles and clear to auscultation bilaterally Cardio regular rate, regular rhythm, S1 normal heart sound, S2 normal heart sound and no murmurs GI normal to inspection, nondistended, normoactive bowel sounds, soft to palpation, non-tender and non-distended Extremity normal to inspection, full ROM and no clubbing, cyanosis or edema Peripheral Pulses: Yes pulses 2+ throughout Skin Skin Narrative: very superficial ulceration, ~ 1cm in diameter on his right flank. looks clean. Neuro oriented x3 and moves all extremities Sensorium / Orientation: awake and alert Psych affect normal Lab / Micro Data Result Diagrams: 02/14/21 12:55 02/14/21 14:46 Labs: Laboratory Results - last 24 hr 02/14/21 02/14/21 02/14/21 12:55 12:55 12:55 WBC 17.8 H RBC 4.25 L Hgb 12.8 L Hct 41.8 MCV 98.4 H MCH 30.1 MCHC 30.6 L RDW Std Deviation 69.3 H RDW Coeff of Lance 19.4 H Plt Count 193 MPV 11.1 Immature Gran % (Auto) 1.300 H Neut % (Auto) 88.0 H Lymph % (Auto) 1.3 L [place] % (Auto) 9.1 Eos % (Auto) 0.1 Baso % (Auto) 0.2 Absolute Neuts (auto) 15.7 H Absolute Lymphs (auto) 0.23 L Nucleated RBC % [address] Review May foll Anisocytosis 2+ PT INR Sodium Cancelled Potassium Cancelled Chloride Cancelled Carbon Dioxide Cancelled Anion Gap Cancelled BUN Cancelled Creatinine Cancelled Estim Creat Clear Calc Cancelled Est GFR (MDRD) Af Amer Cancelled Est GFR (MDRD) Non-Af Cancelled BUN/Creatinine Ratio Cancelled Glucose Cancelled Lactic Acid Cancelled Calcium Cancelled 02/14/21 02/14/21 02/14/21 12:55 13:40 13:40 WBC RBC Hgb Hct MCV MCH MCHC RDW Std Deviation RDW Coeff of Lance Plt Count MPV Immature Gran % (Auto) Neut % (Auto) Lymph % (Auto) [place] % (Auto) Eos % (Auto) Baso % (Auto) Absolute Neuts (auto) Absolute Lymphs (auto) Nucleated RBC % Diff Path Review Anisocytosis PT 36.1 H INR 3.7 Sodium Cancelled Potassium Cancelled Chloride Cancelled Carbon Dioxide Cancelled Anion Gap Cancelled BUN Cancelled Creatinine Cancelled Estim Creat Clear Calc Cancelled Est GFR (MDRD) Af Amer Cancelled Est GFR (MDRD) Non-Af Cancelled BUN/Creatinine Ratio Cancelled Glucose Cancelled Lactic Acid 3.5 H* Calcium Cancelled 02/14/21 14:46 WBC RBC Hgb Hct MCV MCH MCHC RDW Std Deviation RDW Coeff of Lance Plt Count MPV Immature Gran % (Auto) Neut % (Auto) Lymph % (Auto) [place] % (Auto) Eos % (Auto) Baso % (Auto) Absolute Neuts (auto) Absolute Lymphs (auto) Nucleated RBC % Diff Path Review Anisocytosis PT INR Sodium 134 L Potassium 5.7 H Chloride 92 L Carbon Dioxide 31.0 Anion Gap 11 BUN 51 H Creatinine 12.10 H* Estim Creat Clear Calc 8.55 Est GFR (MDRD) Af Amer 6 L Est GFR (MDRD) Non-Af 5 L BUN/Creatinine Ratio 4.2 L Glucose 106 Lactic Acid Calcium 10.3 H Radiology Impression Abdomen/Pelvis CT 02/14/21 12:10 IMPRESSION: Persistent evidence of suspect medical renal disease with some cortical thinning, hyperdense cortices and stable simple cysts. No specific follow-up for the simple cysts needed. Bony structures show degenerative change suggesting osteodystrophy Retained stool in the colon Normal appendix visualized Interstitial edema in the lung bases suggesting pulmonary vascular congestion Electronically Signed: Luther Ferrer MD at 13:34 EDT , Service support , Chest X-Ray 02/14/21 12:10 IMPRESSION: Interstitial and airspace opacifications in both lung page. Follow-up recommended to assure resolution. Findings can BE seen with CHF, multifocal pneumonitis or Covid Electronically Signed: Luther Ferrer MD at 13:28 EDT , Service support , Assessment & Plan Assessment/Plan (1) SIRS (systemic inflammatory response syndrome): PLAN: #Septic shock * there is no clear source of infection * wbc is elevated at 17; was 9 just 2 days ago * Patient's blood pressure dropped to 84/42 once he arrived in PCU he was unresponsive to fluids. Patient therefore transferred to ICU and started on low-dose Levophed drip through peripheral line. It appears the patient does have a history of low blood pressure as he is on midodrine to help sustain his blood pressure. * Critical care consulted. * lactic acid was 3.5, will trend. * get blood cultures, patient cannot get urine culture as patient doesnt make uriine * start on IV vancomycin and zosyn * #Lactic acidosis: Lactic acid is 3.5. This should improve with dialysis. Likely due to septic shock. #ESRD: On hemodialysis. Nephrology consulted for patient to have dialysis today as he has dialysis Wednesdays. #Supratherapeutic INR. Hold Coumadin and trend INR. #Hypercalcemia: Calcium is 10.3. Should improve with dialysis. * * #Paroxysmal A. fib: On amiodarone. Also on Coumadin 7.5 mg daily. INR is 3.7. Will hold coumadin. #Benign essential hypertension: continue BP meds DVT prophylaxis: coumadin held due to elevated INR Visit Charges Inpatient E&M: 05792 Init Hosp L3
[2021-02-14 17:45] LABS: Reflex Lactate? Y
[2021-02-14] MEDS: 0.9% Saline Lock 10 ML Syringe IV (19:10)
--- NOTE | 2021-02-14 19:21 | NURSING ---
Report called to RACHEL Mustafa in ICU. Patient okay to transfer at this time.
[2021-02-14] MEDS: Midodrine HCl 5 MG Tablet 10 MG PO (23:21)
[2021-02-14] MEDS: BRIMONIDINE 0.2% 5ML BOTTLE 1 DRP LEFT EYE (23:21)
--- NOTE | 2021-02-14 23:26 | DIALYSIS ---
Hemodialysis x2.5 hours completed at 2255 on a 2K bath, tolerated fairly well, UF 1800mL, on Levo, asymptomatic hypotension on/off throughout tx, accessed via right thigh AVG using 15G needles, worked well, patient moves legs frequently and quickly, reminded patient often to be careful of his access while needles in place, pulled needles post tx and stasis achieved without issue, dialysis planned again for
[2021-02-14] MEDS: Vancomycin IV 1,000 MG/200 ML BAG 200 MG IV (23:36)
[2021-02-15] VITALS (36 sets, daily range): BP systolic 77–130; BP diastolic 11–65; PULSE 81–96; RESP 14–24; TEMP 36.8–37.1; O2SAT 91–100
--- NOTE | 2021-02-15 05:42 | CON.PCM.CC_ITS ---
Assessment & Plan Assessment/Plan (1) Septic shock: PLAN: RECOMMENDATIONS: 1. Continue broad-spectrum antimicrobials. 2. Continue Levophed and wean as tolerated to maintain hemodynamic stability. 3. Check coronavirus PCR. 4. Check procalcitonin and BNP. IMPRESSIONS: 1. Septic shock Unclear definitive source, although pulmonary and wound etiologies are a possibility. Although the patient normally has a low blood pressure at [facility], his presenting hemodynamic status was out of proportion to what is typical for him. The patient did receive supplemental IV fluid hydration. However, the patient remained persistently hypotensive despite the aforementioned intervention. He is currently on Levophed to maintain hemodynamic stability. The patient will be continued on broad-spectrum antimicrobials, pending culture results. Lactic acidemia has improved. Given vague presenting symptoms and interstitial infiltrates noted on chest imaging, will obtain coronavirus PCR as well. The patient will be continued on midodrine. However, his dose will be increased. 2. End-stage renal disease on hemodialysis Continue routine hemodialysis support per nephrology recommendations. 3. Coagulopathy The patient did present to the hospital with a supratherapeutic INR. Plan to co caden to hold his Coumadin for now. 4. History of paroxysmal atrial fibrillation/obesity/superficial wound Complicates care, management, recovery and prognosis. Continue local wound care. TIME: 35 minutes of critical care time, independent of procedures, was spent addressing the patient's septic shock, end-stage renal disease on hemodialysis, coagulopathy, review of all data and collaboration with the care team. ([id number]) HPI Consult Data Date of Consult: 02/15/21 HPI Narrative Reason for Consultation: Hypotension HPI Narrative: The patient is a 40-year-old male, with a history as outlined below, who presented to the emergency department on February 14 with complaints of generalized malaise and headaches. The patient has a known history of end-stage renal disease and chronic hypotension, requiring midodrine. In addition, the patient was also recently evaluated by the wound care clinic, where he was noted to have a wound in his right lower back. He underwent excisional debridement there and cultures were obtained. On presentation to the emergency department, the patient was noted to be afebrile with a presenting blood pressure of 87/46 mmHg. Laboratory evaluation revealed a white blood cell count of 18,000. INR was noted to be 3.7. Chemistry profile was notable for a sodium of 134, potassium of 5.7, chloride of 92, BUN of 51 and creatinine of 12.1. Lactate was elevated to 3.5. CT abdomen/pelvis revealed incidental pulmonary vascular congestion in the bilateral lung bases without any acute intra-abdominal pathology. Chest x-ray revealed bilateral interstitial opacities. Rapid coronavirus antigen testing was negative. The patient was initially placed on antimicrobials and started on IV fluids. He was admitted to the aggressive care unit for further management. Unfortunately, despite attempts at volume resuscitation, the patient remained hypotensive on the PCU and was subsequently transferred to the medical intensive care unit for further management. The patient is currently on low-dose Levophed at 5 mcg/min to maintain hemodynamic stability. [facility] Medical History (Updated 02/15/21 @ 13:[address] 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) Central retinal artery occlusion of left eye (10/09/20) Chronic kidney disease-mineral and bone disorder Chronic pelvic pain in male COVID-19 virus detected (03/20/20) Dialysis patient ESRD on hemodialysis Essential (primary) hypertension Expressive aphasia (04/05/20) Hearing loss Hematuria History of bacterial endocarditis History of blood clots History of non-ST elevation myocardial infarction (NSTEMI) (11/08/19) History of pulmonary embolus (PE) History of venous thromboembolism 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 due to renal insufficiency 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 detention current use of 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 Mechanical complication of arteriovenous fistula surgically created Mitral valve annular calcification Morbidly obese Non compliance w medication regimen Non-healing non-surgical wound Nonrheumatic mitral valve stenosis with insufficiency Obstructive sleep apnea Paroxysmal atrial fibrillation (06/10/20) Paroxysmal atrial flutter 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) Pelvic mass Unspecified symptoms and signs involving cognitive functions and awareness (04/05/20) Home Medications ferric citrate 630 mg PO TIDCM 02/05/19 [History Last Taken 02/13/21] warfarin 7.5 mg PO DAILY 10/06/20 [History Last Taken 02/13/21] brimonidine 1 drp LEFT EYE TID #1 bottle 10/09/20 [Rx Last Taken 02/13/21] oxycodone 5 mg tablet 5 mg PO DAILY PRN 01/30/21 [History Last Taken 02/08/21] amiodarone [Pacerone] 200 mg PO DAILY 02/12/21 [History Last Taken 02/13/21] rimegepant [Nurtec ODT] 75 mg PO X1 PRN #5 tab 02/12/21 [Rx Last Taken Unknown] acetaminophen [Tylenol Extra Strength] 1,000 - 1,500 mg PO TID 02/14/21 [History Last Taken 02/12/21] midodrine 5 mg PO TID 02/14/21 [History Last Taken 02/13/21] Allergy/AdvReac Type Severity Reaction Status Date / Time No Known Allergies Allergy Verified 02/12/21 19:09 Family History Other Adopted Surgical History History of cardioversion (12/02/18) history of cather replacement History of herniorrhaphy History of left heart catheterization (09/17/18) History of repair of congenital cleft palate Mechanical complication of dialysis catheter Status post creation of arteriovenous fistula Social History Smoking Status: Never smoker alcohol intake: never substance use type: marijuana what type of physical activity do you participate in: none ROS Constitutional Constitutional: Reports fatigue and malaise; Denies body ache(s), chills or fever(s) Eyes Eyes: Denies blurry vision or change in vision ENT HEENT: Reports headache(s); Denies dizziness or sore throat Cardiovascular Cardiovascular: Denies chest pain, dizziness or dyspnea Respiratory/Chest Respiratory/Chest: Denies chest tightness or cough Gastrointestinal Gastrointestinal: Reports abdominal pain; Denies diarrhea, nausea or vomiting Genitourinary Genitourinary: Denies difficulty urinating Musculoskeletal Musculoskeletal: Denies arthralgias or back pain Integumentary Integumentary: Reports wounds Neurologic Neurologic: Denies abnormal gait, abnormal speech or confusion Psychiatric Psychiatric: Denies anxiety or depression Endocrine Endocrinology: Reports fatigue Hematologic/Lymphatic Hematologic/Lymphatic: Denies easy bleeding or easy bruising Physical Exam Const alert, oriented x3 and no apparent distress Constitutional Narrative: Sitting in bedside recliner General Appearance: cooperative HEENT normocephalic, head/scalp atraumatic and moist oral mucous membranes Eyes PERRL and EOMs intact bilaterally Neck supple General: trachea midline Resp normal respiratory effort Auscultation: clear to auscultation bilaterally Cardio regular rate and regular rhythm GI normal to inspection, nondistended, normoactive bowel sounds Extremity no clubbing, cyanosis or edema Skin Wound Narrative: Right flank superficial wound Neuro oriented x3, CN's II-XII intact bilaterally and no focal motor deficits Psych cooperative and affect normal Lab / Micro Data Result Diagrams: 02/15/21 05:10 02/15/21 05:10 Labs: Laboratory Results - last 24 hr 02/14/21 02/14/21 02/14/21 12:55 12:55 12:55 WBC 17.8 H RBC 4.25 L Hgb 12.8 L Hct 41.8 MCV 98.4 H MCH 30.1 MCHC 30.6 L RDW Std Deviation 69.3 H RDW Coeff of Lance 19.4 H Plt Count 193 MPV 11.1 Immature Gran % (Auto) 1.300 H Neut % (Auto) 88.0 H Lymph % (Auto) 1.3 L [place] % (Auto) 9.1 Eos % (Auto) 0.1 Baso % (Auto) 0.2 Absolute Neuts (auto) 15.7 H Absolute Lymphs (auto) 0.23 L Nucleated RBC % 0 Diff Path Review May foll Anisocytosis 2+ PT INR Sodium Cancelled Potassium Cancelled Chloride Cancelled Carbon Dioxide Cancelled Anion Gap Cancelled BUN Cancelled Creatinine Cancelled Estim Creat Clear Calc Cancelled Est GFR (MDRD) Af Amer Cancelled Est GFR (MDRD) Non-Af Cancelled BUN/Creatinine Ratio Cancelled Glucose Cancelled Lactic Acid Cancelled Calcium Cancelled 02/14/21 02/14/21 02/14/21 12:55 13:40 13:40 WBC RBC Hgb Hct MCV MCH MCHC RDW Std Deviation RDW Coeff of Lance Plt Count MPV Immature Gran % (Auto) Neut % (Auto) Lymph % (Auto) [place] % (Auto) Eos % (Auto) Baso % (Auto) Absolute Neuts (auto) Absolute Lymphs (auto) Nucleated RBC % Diff Path Review Anisocytosis PT 36.1 H INR 3.7 Sodium Cancelled Potassium Cancelled Chloride Cancelled Carbon Dioxide Cancelled Anion Gap Cancelled BUN Cancelled Creatinine Cancelled Estim Creat Clear Calc Cancelled Est GFR (MDRD) Af Amer Cancelled Est GFR (MDRD) Non-Af Cancelled BUN/Creatinine Ratio Cancelled Glucose Cancelled Lactic Acid 3.5 H* Calcium Cancelled 02/14/21 02/14/21 14:46 19:08 WBC RBC Hgb Hct MCV MCH MCHC RDW Std Deviation RDW Coeff of Lance Plt Count MPV Immature Gran % (Auto) Neut % (Auto) Lymph % (Auto) [place] % (Auto) Eos % (Auto) Baso % (Auto) Absolute Neuts (auto) Absolute Lymphs (auto) Nucleated RBC % Diff Path Review Anisocytosis PT INR Sodium 134 L Potassium 5.7 H Chloride 92 L Carbon Dioxide 31.0 Anion Gap 11 BUN 51 H Creatinine 12.10 H* Estim Creat Clear Calc 8.55 Est GFR (MDRD) Af Amer 6 L Est GFR (MDRD) Non-Af 5 L BUN/Creatinine Ratio 4.2 L Glucose 106 Lactic Acid 2.0 Calcium 10.3 H Micro: Microbiology 02/14/21 16:25 SARS-CoV-2 Antigen (Rapid) - Final Interface Orders Radiology Impression Abdomen/Pelvis CT 02/14/21 12:10 IMPRESSION: Persistent evidence of suspect medical renal disease with some cortical thinning, hyperdense cortices and stable simple cysts. No specific follow-up for the simple cysts needed. Bony structures show degenerative change suggesting osteodystrophy Retained stool in the colon Normal appendix visualized Interstitial edema in the lung bases suggesting pulmonary vascular congestion Electronically Signed: Luther Ferrer MD at 13:34 EDT , Service support , Chest X-Ray 02/14/21 12:10 IMPRESSION: Interstitial and airspace opacifications in both lung page. Follow-up recommended to assure resolution. Findings can BE seen with CHF, multifocal pneumonitis or Covid Electronically Signed: Luther Ferrer MD at 13:28 EDT , Service support , Charges/Coding Procedures Hospitalists Procedures: [id number] Critial Care 1st Hr
[2021-02-15 05:49] LABS: Absolute Lymphocyte Count 0.68 X10^3/uL (0.83-4.51); Absolute Neutrophil Count 13.3 X10^3/uL (2.0-7.7); Basophil# 0.03 X10^3/uL; Basophil% 0.2 % (0-1); Eosinophil# 0.14 X10^3/uL; Eosinophils% 0.9 % (0-5); Hematocrit 36.9 % (40-54); Hemoglobin 11.2 g/dL (13.0-16.5); Lymphocyte # 0.68 X10^3/ul (0.83-4.51); Lymphocyte % 4.3 % (19-41); Mean Corp Hgb Conc 30.4 g/dL (32-36); Mean Corpuscular Hgb 30.1 pg (27.0-32.0); Mean Corpuscular Volume 99.2 fL (80-94); Mean Platelet Vol. 11.3 fl (6.2-12.0); Monocyte% 9.5 % (0-10); NRBC Flagged by Analyzer 0 % (0-5); Neutrophil # 13.25 X10^3/uL (2.7-7.7); Neutrophil % 84.1 % (47-70); POSITIVE MORPHOLOGY YES; Platelet Count 197 K/mm3 (150-450); RBC Distribution Width SD 68.4 fl (35.1-43.9); Red Blood Count 3.72 M/mm3 (4.6-6.2); White Blood Count 15.8 K/mm3 (4.4-11.0)
[2021-02-15 06:02] LABS: Differential Indicated SCAN CRITERIA MET
--- NOTE | 2021-02-15 06:02 | PCM.RX.CS ---
Consult Pharmacy has been consulted to manage selected antiobiotic: Vancomycin Type of Consult: New start Microbiology: Microbiology 02/14/21 16:25 Interface Orders SARS-CoV-2 Antigen (Rapid) - Final Goal Trough: 15-20 mcg/mL Pharmacy Plan for Drug Dosing: Pharmacy Service will continue to monitor and adjust dosing as required. Medications Discontinued Medications Vancomycin HCl 2,000 mg/ (Sodium Chloride) 540 mls @ 250 mls/hr IV X1 ONE Stop: 02/14/21 17:39 Last Admin: 02/15/21 02:34 Dose: Infused Documented by: Vancomycin HCl (Vancomycin) 1,000 mg in 200 mls @ 200 mls/hr IV X1 ONE Stop: 02/15/21 00:29 Last Admin: 02/15/21 00:36 Dose: Infused Documented by: Follow-Up Labs: Trough Vancomycin Labs to be done on [date and time ordered]: 02/16 PRIOR TO DIALYSIS
[2021-02-15 06:18] LABS: Anion Gap 8 (5-15); BUN 33 mg/dL (7-18); BUN/Creat Ratio 3.6 RATIO (10-20); Calcium,Total 9.4 mg/dL (8.5-10.1); Chloride 92 mmol/L (98-107); Creatinine, Serum 9.13 mg/dL (0.70-1.30); EST Glomerular Filtration Rate 7 mL/min (>60); Est Glom Filt Rate - Afr Amer 8 mL/min (>60); Estimated Creatinine Clearance 11.33 ml/min; Glucose 95 mg/dL (74-106); Potassium 4.9 mmol/L (3.5-5.1); Sodium Level 133 mmol/L (136-145)
[2021-02-15] MEDS: BRIMONIDINE 0.2% 5ML BOTTLE 1 DRP LEFT EYE ×3 (06:38→21:53)
[2021-02-15] MEDS: TITRATION PARAMETER CHANGE 1 EACH IV ×2 (06:38→14:30)
--- NOTE | 2021-02-15 07:14 | PN.HOSP_ITS ---
Objective Data Objective Data Vital Signs: Vital Signs Temp Pulse Resp BP Pulse Ox 98.5 F 88 24 H 108/46 L 98 02/14/21 23:24 02/15/21 04:00 02/15/21 03:00 02/15/21 03:15 02/15/21 03:00 Oxygen Flow Rate (L/min) 2 Oxygen Delivery Method Room Air Weight: 136.395 kg Body Mass Index (BMI) 42.3 Intake & Output: Intake and Output for Last 24 Hours 02/13/21 02/14/21 02/15/21 23:59 23:59 23:59 Intake Total 1707.18 / 1725.98 294.65 / 294.65 Output Total 1800 / 3600 1800 / 1800 Balance -92.82 / -1874.02 -1505.35 / -1505.35 Lab / Micro Data Result Diagrams: 02/15/21 05:10 02/15/21 05:10 Labs: Laboratory Results - last 24 hr 02/14/21 02/14/21 02/14/21 12:55 12:55 12:55 WBC 17.8 H RBC 4.25 L Hgb 12.8 L Hct 41.8 MCV 98.4 H MCH 30.1 MCHC 30.6 L RDW Std Deviation 69.3 H RDW Coeff of Lance 19.4 H Plt Count 193 MPV 11.1 Immature Gran % (Auto) 1.300 H Neut % (Auto) 88.0 H Lymph % (Auto) 1.3 L [place] % (Auto) 9.1 Eos % (Auto) 0.1 Baso % (Auto) 0.2 Absolute Neuts (auto) 15.7 H Absolute Lymphs (auto) 0.23 L Nucleated RBC % 0 [address] Path Review May foll Anisocytosis 2+ PT INR Sodium Cancelled Potassium Cancelled Chloride Cancelled Carbon Dioxide Cancelled Anion Gap Cancelled BUN Cancelled Creatinine Cancelled Estim Creat Clear Calc Cancelled Est GFR (MDRD) Af Amer Cancelled Est GFR (MDRD) Non-Af Cancelled BUN/Creatinine Ratio Cancelled Glucose Cancelled Lactic Acid Cancelled Calcium Cancelled 02/14/21 02/14/21 02/14/21 12:55 13:40 13:40 WBC RBC Hgb Hct MCV MCH MCHC RDW Std Deviation RDW Coeff of Lance Plt Count MPV Immature Gran % (Auto) Neut % (Auto) Lymph % (Auto) [place] % (Auto) Eos % (Auto) Baso % (Auto) Absolute Neuts (auto) Absolute Lymphs (auto) Nucleated RBC % Diff Path Review Anisocytosis PT 36.1 H INR 3.7 Sodium Cancelled Potassium Cancelled Chloride Cancelled Carbon Dioxide Cancelled Anion Gap Cancelled BUN Cancelled Creatinine Cancelled Estim Creat Clear Calc Cancelled Est GFR (MDRD) Af Amer Cancelled Est GFR (MDRD) Non-Af Cancelled BUN/Creatinine Ratio Cancelled Glucose Cancelled Lactic Acid 3.5 H* Calcium Cancelled 02/14/21 02/14/21 02/15/21 14:46 19:08 05:10 WBC 15.8 H RBC 3.72 L Hgb 11.2 L Hct 36.9 L MCV 99.2 H MCH 30.1 MCHC 30.4 L RDW Std Deviation 68.4 H RDW Coeff of Lance 19.0 H Plt Count 197 MPV 11.3 Immature Gran % (Auto) 1.000 H Neut % (Auto) 84.1 H Lymph % (Auto) 4.3 L [place] % (Auto) 9.5 Eos % (Auto) 0.9 Baso % (Auto) 0.2 Absolute Neuts (auto) 13.3 H Absolute Lymphs (auto) 0.68 L Nucleated RBC % 0 [address] Review Anisocytosis PT INR Sodium 134 L Potassium 5.7 H Chloride 92 L Carbon Dioxide 31.0 Anion Gap 11 BUN 51 H Creatinine 12.10 H* Estim Creat Clear Calc 8.55 Est GFR (MDRD) Af Amer 6 L Est GFR (MDRD) Non-Af 5 L BUN/Creatinine Ratio 4.2 L Glucose 106 Lactic Acid 2.0 Calcium 10.3 H 02/15/21 05:10 WBC RBC Hgb Hct MCV MCH MCHC RDW Std Deviation RDW Coeff of Lance Plt Count MPV Immature Gran % (Auto) Neut % (Auto) Lymph % (Auto) [place] % (Auto) Eos % (Auto) Baso % (Auto) Absolute Neuts (auto) Absolute Lymphs (auto) Nucleated RBC % Diff Path Review Anisocytosis PT INR Sodium 133 L Potassium 4.9 Chloride 92 L Carbon Dioxide 33.0 H Anion Gap 8 BUN 33 H Creatinine 9.13 H* Estim Creat Clear Calc 11.33 Est GFR (MDRD) Af Amer 8 L Est GFR (MDRD) Non-Af 7 L BUN/Creatinine Ratio 3.6 L Glucose 95 Lactic Acid Calcium 9.4 Micro: Microbiology 02/14/21 16:25 Interface Orders SARS-CoV-2 Antigen (Rapid) - Final Radiography Diagnostic Testing: Radiology Impression Abdomen/Pelvis CT 02/14/21 12:10 IMPRESSION: Persistent evidence of suspect medical renal disease with some cortical thinning, hyperdense cortices and stable simple cysts. No specific follow-up for the simple cysts needed. Bony structures show degenerative change suggesting osteodystrophy Retained stool in the colon Normal appendix visualized Interstitial edema in the lung bases suggesting pulmonary vascular congestion Electronically Signed: Luther Ferrer MD at 13:34 EDT , Service support , Chest X-Ray 02/14/21 12:10 IMPRESSION: Interstitial and airspace opacifications in both lung page. Follow-up recommended to assure resolution. Findings can BE seen with CHF, multifocal pneumonitis or Covid Electronically Signed: Luther Ferrer MD at 13:28 EDT , Service support ,
--- NOTE | 2021-02-15 07:36 | PCM.PN.HOSP ---
Subjective Subjective Patient is a 40-year-old gentleman with history of chronic wound on the back, end-stage renal disease who presented to the emergency department with generalized malaise and chills. Event of septic shock made admitted to the intensive care unit for further management Objective Data Objective Data Vital Signs: Vital Signs Temp Pulse Resp BP Pulse Ox 98.5 F 90 24 H 108/46 L 98 02/14/21 23:24 02/15/21 07:18 02/15/21 03:00 02/15/21 03:15 02/15/21 03:00 Oxygen Flow Rate (L/min) 2 Oxygen Delivery Method Room Air Weight: 136.395 kg Body Mass Index (BMI) 42.3 Intake & Output: Intake and Output for Last 24 Hours 02/13/21 02/14/21 02/15/21 23:59 23:59 23:59 Intake Total 1707.18 / 1725.98 329.90 / 329.90 Output Total 1800 / 3600 1800 / 1800 Balance -92.82 / -1874.02 -1470.10 / -1470.10 Lab / Micro Data Result Diagrams: 02/15/21 05:10 02/15/21 05:10 Labs: Laboratory Results - last 24 hr 02/14/21 02/14/21 02/14/21 12:55 12:55 12:55 WBC 17.8 H RBC 4.25 L Hgb 12.8 L Hct 41.8 MCV 98.4 H MCH 30.1 MCHC 30.6 L RDW Std Deviation 69.3 H RDW Coeff of Lance 19.4 H Plt Count 193 MPV 11.1 Immature Gran % (Auto) 1.300 H Neut % (Auto) 88.0 H Lymph % (Auto) 1.3 L [place] % (Auto) 9.1 Eos % (Auto) 0.1 Baso % (Auto) 0.2 Absolute Neuts (auto) 15.7 H Absolute Lymphs (auto) 0.23 L Nucleated RBC % [address] Review May foll Anisocytosis 2+ PT INR Sodium Cancelled Potassium Cancelled Chloride Cancelled Carbon Dioxide Cancelled Anion Gap Cancelled BUN Cancelled Creatinine Cancelled Estim Creat Clear Calc Cancelled Est GFR (MDRD) Af Amer Cancelled Est GFR (MDRD) Non-Af Cancelled BUN/Creatinine Ratio Cancelled Glucose Cancelled Lactic Acid Cancelled Calcium Cancelled 05/19/21 05/19/21 05/19/21 12:55 13:40 13:40 WBC RBC Hgb Hct MCV MCH MCHC RDW Std Deviation RDW Coeff of Lance Plt Count MPV Immature Gran % (Auto) Neut % (Auto) Lymph % (Auto) [place] % (Auto) Eos % (Auto) Baso % (Auto) Absolute Neuts (auto) Absolute Lymphs (auto) Nucleated RBC % Diff Path Review Anisocytosis PT 36.1 H INR 3.7 Sodium Cancelled Potassium Cancelled Chloride Cancelled Carbon Dioxide Cancelled Anion Gap Cancelled BUN Cancelled Creatinine Cancelled Estim Creat Clear Calc Cancelled Est GFR (MDRD) Af Amer Cancelled Est GFR (MDRD) Non-Af Cancelled BUN/Creatinine Ratio Cancelled Glucose Cancelled Lactic Acid 3.5 H* Calcium Cancelled 02/14/21 02/14/21 02/15/21 14:46 19:08 05:10 WBC 15.8 H RBC 3.72 L Hgb 11.2 L Hct 36.9 L MCV 99.2 H MCH 30.1 MCHC 30.4 L RDW Std Deviation 68.4 H RDW Coeff of Lance 19.0 H Plt Count 197 MPV 11.3 Immature Gran % (Auto) 1.000 H Neut % (Auto) 84.1 H Lymph % (Auto) 4.3 L [place] % (Auto) 9.5 Eos % (Auto) 0.9 Baso % (Auto) 0.2 Absolute Neuts (auto) 13.3 H Absolute Lymphs (auto) 0.68 L Nucleated RBC % [address] Review Anisocytosis PT INR Sodium 134 L Potassium 5.7 H Chloride 92 L Carbon Dioxide 31.0 Anion Gap 11 BUN 51 H Creatinine 12.10 H* Estim Creat Clear Calc 8.55 Est GFR (MDRD) Af Amer 6 L Est GFR (MDRD) Non-Af 5 L BUN/Creatinine Ratio 4.2 L Glucose 106 Lactic Acid 2.0 Calcium 10.3 H 02/15/21 05:10 WBC RBC Hgb Hct MCV MCH MCHC RDW Std Deviation RDW Coeff of Lance Plt Count MPV Immature Gran % (Auto) Neut % (Auto) Lymph % (Auto) [place] % (Auto) Eos % (Auto) Baso % (Auto) Absolute Neuts (auto) Absolute Lymphs (auto) Nucleated RBC % Diff Path Review Anisocytosis PT INR Sodium 133 L Potassium 4.9 Chloride 92 L Carbon Dioxide 33.0 H Anion Gap 8 BUN 33 H Creatinine 9.13 H* Estim Creat Clear Calc 11.33 Est GFR (MDRD) Af Amer 8 L Est GFR (MDRD) Non-Af 7 L BUN/Creatinine Ratio 3.6 L Glucose 95 Lactic Acid Calcium 9.4 Micro: Microbiology 02/14/21 16:25 Interface Orders SARS-CoV-2 Antigen (Rapid) - Final Radiography Diagnostic Testing: Radiology Impression Abdomen/Pelvis CT 02/14/21 12:10 IMPRESSION: Persistent evidence of suspect medical renal disease with some cortical thinning, hyperdense cortices and stable simple cysts. No specific follow-up for the simple cysts needed. Bony structures show degenerative change suggesting osteodystrophy Retained stool in the colon Normal appendix visualized Interstitial edema in the lung bases suggesting pulmonary vascular congestion Electronically Signed: Luther Ferrer MD at 13:34 EDT , Service support , Chest X-Ray 02/14/21 12:10 IMPRESSION: Interstitial and airspace opacifications in both lung page. Follow-up recommended to assure resolution. Findings can BE seen with CHF, multifocal pneumonitis or Covid Electronically Signed: Luther Ferrer MD at 13:28 EDT , Service support , Physical Exam Narrative GENERAL: cooperative HEENT: Atraumatic; EYES; Anicteric, Normal Conjunctiva NECK; supple, normal thyroid, RESPIRATORY: Diminished to auscultation CARDIOVASCULAR: Regular S1 S2, GI: soft, normoactive bowel sounds, : No Renal angle tenderness; EXTREMITIES: No edema, no clubbing, MUSCULOSKELETAL: no muscle waisting NEURO: Awake; no lateralizing signs. SKIN: 3cm scab/wound on the right lower back PSYCH; Flat affect Assessment & Plan Assessment/Plan (1) Septic shock: (2) SIRS (systemic inflammatory response syndrome): (3) Non-healing non-surgical wound: (4) Paroxysmal atrial fibrillation: (5) ESRD on hemodialysis: (6) Anemia of chronic disorder: PLAN: Patient is a 40-year-old gentleman with history of chronic wound on the back, end-stage renal disease who presented to the emergency department with generalized malaise and chills. Event of septic shock made admitted to the intensive care unit for further management 1. Septic shock ?Suspected to be secondary to infected wound versus other etiology. Patient was started on broad-spectrum antibiotics per therapy resuscitated with aggressive IV fluid and cultures sent. Patient progressed being monitored with serial lactic acid level. Patient was also started on Levophed. Patient rapid Covid screen was negative however PCR has been ordered given his presentation 2. Chronic wound ?Involving the back consult placed to the wound care nurse for dressing changes 3. End-stage renal disease ?On hemodialysis on Wednesdays and Fridays consultation placed to nephrology for dialysis orders 4. Paroxysmal A. fib ?Rate controlled on amiodarone. On systemic anticoagulation with Coumadin which is being held in view of elevated INR of 3.7 on admission 5. Morbid obesity - With a BMI of 43.1 patient was counseled on weight reduction 6. Anemia - Secondary to chronic disorder/ESRD monitoring H&H and transfuse if patient becomes symptomatic or hemoglobin falls below 7/ 7. Orthostasis ?Patient is on midodrine continue 8. DVT prophylaxis ?Patient is on Coumadin which is being held in view of elevated INR Visit Charges Inpatient E&M: 51592 Subs Hosp L3
[2021-02-15 08:48] LABS: BNP,B-Type NATRIURETIC PEPTIDE 198.7 pg/mL (0-100)
[2021-02-15 09:46] LABS: Procalcitonin 49.95 ng/mL (0.00-0.09)
[2021-02-15] MEDS: Midodrine HCl 5 MG Tablet 10 MG PO ×3 (10:10→17:39)
[2021-02-15] MEDS: Amiodarone 200 MG Tablet PO (10:10)
[2021-02-15] MEDS: SEVELAMER CARBONATE 800 MG TABLET PO ×3 (10:16→17:39)
[2021-02-15] MEDS: Ferrous Sulfate 325 MG Tablet PO ×2 (10:17→17:39)
--- NOTE | 2021-02-15 11:11 | NURSING ---
wound photo: right lower back
--- NOTE | 2021-02-15 11:46 | PCM.RX.CS ---
Consult Pharmacy has been consulted to manage selected antiobiotic: Vancomycin Type of Consult: Follow-up Suspected Infection: Sepsis Labs: Sodium 133 mmol/L (136-145) L 02/15/21 05:10 Potassium 4.9 mmol/L (3.5-5.1) 02/15/21 05:10 Chloride 92 mmol/L (98-107) L 02/15/21 05:10 Carbon Dioxide 33.0 mmol/L (21.0-32.0) H 02/15/21 05:10 Anion Gap 8 (5-15) 02/15/21 05:10 BUN 33 mg/dL (7-18) H 02/15/21 05:10 Creatinine 9.13 mg/dL (0.70-1.30) H* 02/15/21 05:10 Est GFR (MDRD) Af Amer 8 mL/min (>60) L 02/15/21 05:10 Est GFR (MDRD) Non-Af 7 mL/min (>60) L 02/15/21 05:10 BUN/Creatinine Ratio 3.6 RATIO (10-20) L 02/15/21 05:10 Glucose 95 mg/dL (74-106) 02/15/21 05:10 Microbiology: Microbiology 02/14/21 16:25 Interface Orders SARS-CoV-2 Antigen (Rapid) - Final Goal Trough: 15-20 mcg/mL Pharmacy Plan for Drug Dosing: Patient is ESRD with usual HD schedule M/W/. Discussed in ICU rounds today, pt to get another HD session today, 02/15. Per previous dosing, pt had x1 dose in ED (2g IV x1 02/14 @1633), had HD session last evening with subsequent vancomycin dose after that (1g IV x1 02/14/21 @2330). Since pt to get another HD session today, ordered stat random vancomycin level prior to start of HD today. Discussed with patient's RN, RN aware of random vancomycin level prior to HD session. Will dose pt's vancomycin dose after HD today based on random level drawn pre-session. Will follow-up with nursing regarding pt's next HD session. PLAN: 1. Random vancomycin level 02/15/21 prior to HD session today (Note: usual HD schedule M/W/F) 2. Dose based on random vancomycin level obtained 3. Pharmacy Service will continue to monitor and adjust dosing as required.
--- NOTE | 2021-02-15 11:47 | CASEMGMT ---
RN CM COIN DEALER CM to room to meet with patient for initial transition planning/care coordination assessment. RACHEL PARNELL introduced self and role at [facility]. Pt voices understanding and consents to assessment at this time. Pt sitting up in chair in room in no distress at this time. Pt is A/O at this time and answers all questions appropriately. Care providers, pharmacy, and demographics verified/updated at this time. PCP: Dr Banda Specialists: Dr Melendez--nephrology. [facility] Chair time 1110 (pt arrives @ 1050). Call [facility] to K[facility] @ [email or web address]. They are aware pt has been admitted to [facility]. Per Krystal, if pt would be medically ready for discharge tomorrow/Friday, they have chair time available until 5 PM for pt to receive OP dialysis. Preferred Pharmacy: [facility] Insurance: [facility] Prescription Benefit: Yes Living Will/HPOA: States he has both LW and Healthcare POA, who is his , [place]. Copies of both are on e-chart @ [facility] LNOK: , [place] Living Arrangements: Lives w/his and 6 yr-old son in one-story home. 3 steps to enter through the front entrance and 2 steps through the back entrance. Pt states they are difficult sometimes, but he just takes them slowly. Pt independent w/ADL's. does most home mgmt tasks. Transportation: Pt states drives self and states no transportation concerns at this time. His also drives. Pt states his car is @ [facility] and he plans to drive home @ d/c. DME: States has the following DME: CPAP. His is unable to bring in his home CPAP machine. Pt states he would like to have CPAP applied tonight. RNMaggie, made aware. Pt states he would like to get a BP machine. He was made aware insurance does not cover this and informed of places this could be purchased. Pt states no need for further DME at this time. HHC/SNF: No history of either. No needs identified. Pt denies need for HHC. Pt wishes to return home and states has no concerns with going home at time of discharge. CM to follow for any further discharge planning/needs. Pt voices no further concerns/needs at this time. Advised pt to ask for CM if any further questions/concerns/needs arise. Voices understanding. PLAN: Home w/spousal support and discharge plans in place. Sandra COXN RN CM
[2021-02-15 12:30] LABS: Pathologist Review Reviewed
--- NOTE | 2021-02-15 12:53 | CON.PCM.RE_ITS ---
Assessment & Plan Assessment/Plan (1) ESRD on hemodialysis: PLAN: For dialysis tomorrow we will remove fluid as tolerated he still on Levophed 5 mcg (2) Anemia of chronic disorder: PLAN: No need for ANABELLA monitor (3) Secondary renal hyperparathyroidism: PLAN: Continue to monitor calcium and phosphorus binders as needed (4) Septic shock: PLAN: Follow-up blood cultures on Levophed 5 mcg continue broad-spectrum antibiotics, HPI Consult Data Date of Consult: 02/15/21 HPI Narrative HPI Narrative: REJI SPAIN, is a 40 M with past medical history as below who presented with cc of of generalized malaise and weakness. He has not been feeling well for 3 days also had some headache abdominal pain pain in the lower back wound. He also had associated nausea and vomiting. He was seen in the ER in [place] for the same complaints and discharged home. He also has some chills but not sure about fever. Apparently he was sent for fever and chills from the wound care center. His last dialysis prior to admission was on Friday and he had dialysis last night to. His blood pressure initially was 104/74 but then he dropped to the 70s so he was started on Levophed. He was found to have leukocytosis with 17.8 WBC count. Blood cultures were obtained and he was started on IV vancomycin and Zosyn. He was transferred to the ICU from the emergency room and started on Levophed. He still currently on Levophed. He denies chest pain shortness of breath and he is on 1 L/min nasal cannula. He has right leg AV graft and denies pain at the graft site or purulent discharge or erythema. He has no other complaints. [facility] Medical History (Updated 02/15/21 @ 13:[address] 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) Central retinal artery occlusion of left eye (10/09/20) Chronic kidney disease-mineral and bone disorder Chronic pelvic pain in male COVID-19 virus detected (03/20/20) Dialysis patient ESRD on hemodialysis Essential (primary) hypertension Expressive aphasia (04/05/20) Hearing loss Hematuria History of bacterial endocarditis History of blood clots History of non-ST elevation myocardial infarction (NSTEMI) (11/08/19) History of pulmonary embolus (PE) History of venous thromboembolism 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 due to renal insufficiency 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 Mechanical complication of arteriovenous fistula surgically created Mitral valve annular calcification Morbidly obese Non compliance w medication regimen Non-healing non-surgical wound Nonrheumatic mitral valve stenosis with insufficiency Obstructive sleep apnea Paroxysmal atrial fibrillation (06/10/20) Paroxysmal atrial flutter 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) Pelvic mass Unspecified symptoms and signs involving cognitive functions and awareness (04/05/20) Home Medications ferric citrate 630 mg PO TIDCM 02/05/19 [History Last Taken 02/13/21] warfarin 7.5 mg PO DAILY 10/06/20 [History Last Taken 02/13/21] brimonidine 1 drp LEFT EYE TID #1 bottle 10/09/20 [Rx Last Taken 02/13/21] oxycodone 5 mg tablet 5 mg PO DAILY PRN 01/30/21 [History Last Taken 02/08/21] amiodarone [Pacerone] 200 mg PO DAILY 02/12/21 [History Last Taken 02/13/21] rimegepant [Nurtec ODT] 75 mg PO X1 PRN #5 tab 02/12/21 [Rx Last Taken Unknown] acetaminophen [Tylenol Extra Strength] 1,000 - 1,500 mg PO TID 02/14/21 [History Last Taken 02/12/21] midodrine 5 mg PO TID 02/14/21 [History Last Taken 02/13/21] Allergy/AdvReac Type Severity Reaction Status Date / Time No Known Allergies Allergy Verified 02/12/21 19:09 Family History Other Adopted Surgical History History of cardioversion (12/02/18) history of cather replacement History of herniorrhaphy History of left heart catheterization (09/17/18) History of repair of congenital cleft palate Mechanical complication of dialysis catheter Status post creation of arteriovenous fistula Social History Smoking Status: Never smoker alcohol intake: never substance use type: marijuana what type of physical activity do you participate in: none Physical Exam Const alert and no apparent distress General Appearance: comfortable HEENT normocephalic HEENT Narrative: atraumatic Neck General: normal visual inspection and trachea midline Resp normal respiratory effort and clear to auscultation bilaterally Cardio regular rate, regular rhythm, S1 normal heart sound and S2 normal heart sound GI soft to palpation and non-tender GI Narrative: obese Extremity no clubbing, cyanosis or edema Extremity Narrative: Right leg AV graft good thrill and bruit no discharge no erythema Neuro Sensorium / Orientation: awake and alert Lab / Micro Data Result Diagrams: 02/15/21 05:10 02/15/21 05:10 Labs: Laboratory Results - last 24 hr 02/14/21 02/14/21 02/14/21 12:55 12:55 12:55 WBC 17.8 H RBC 4.25 L Hgb 12.8 L Hct 41.8 MCV 98.4 H MCH 30.1 MCHC 30.6 L RDW Std Deviation 69.3 H RDW Coeff of Lance 19.4 H Plt Count 193 MPV 11.1 Immature Gran % (Auto) 1.300 H Neut % (Auto) 88.0 H Lymph % (Auto) 1.3 L [place] % (Auto) 9.1 Eos % (Auto) 0.1 Baso % (Auto) 0.2 Absolute Neuts (auto) 15.7 H Absolute Lymphs (auto) 0.23 L Nucleated RBC % 0 [address] Review Reviewed Anisocytosis 2+ PT INR Sodium Cancelled Potassium Cancelled Chloride Cancelled Carbon Dioxide Cancelled Anion Gap Cancelled BUN Cancelled Creatinine Cancelled Estim Creat Clear Calc Cancelled Est GFR (MDRD) Af Amer Cancelled Est GFR (MDRD) Non-Af Cancelled BUN/Creatinine Ratio Cancelled Glucose Cancelled Lactic Acid Cancelled Calcium Cancelled B-Natriuretic Peptide Procalcitonin COVID-19 (CARLOS) 02/14/21 02/14/21 02/14/21 12:55 13:40 13:40 WBC RBC Hgb Hct MCV MCH MCHC RDW Std Deviation RDW Coeff of Lance Plt Count MPV Immature Gran % (Auto) Neut % (Auto) Lymph % (Auto) [place] % (Auto) Eos % (Auto) Baso % (Auto) Absolute Neuts (auto) Absolute Lymphs (auto) Nucleated RBC % Diff Path Review Anisocytosis PT 36.1 H INR 3.7 Sodium Cancelled Potassium Cancelled Chloride Cancelled Carbon Dioxide Cancelled Anion Gap Cancelled BUN Cancelled Creatinine Cancelled Estim Creat Clear Calc Cancelled Est GFR (MDRD) Af Amer Cancelled Est GFR (MDRD) Non-Af Cancelled BUN/Creatinine Ratio Cancelled Glucose Cancelled Lactic Acid 3.5 H* Calcium Cancelled B-Natriuretic Peptide Procalcitonin COVID-19 (CARLOS) 02/14/21 02/14/21 02/15/21 14:46 19:08 05:10 WBC 15.8 H RBC 3.72 L Hgb 11.2 L Hct 36.9 L MCV 99.2 H MCH 30.1 MCHC 30.4 L RDW Std Deviation 68.4 H RDW Coeff of Lance 19.0 H Plt Count 197 MPV 11.3 Immature Gran % (Auto) 1.000 H Neut % (Auto) 84.1 H Lymph % (Auto) 4.3 L [place] % (Auto) 9.5 Eos % (Auto) 0.9 Baso % (Auto) 0.2 Absolute Neuts (auto) 13.3 H Absolute Lymphs (auto) 0.68 L Nucleated RBC % 0 [address] Path Review Anisocytosis PT INR Sodium 134 L Potassium 5.7 H Chloride 92 L Carbon Dioxide 31.0 Anion Gap 11 BUN 51 H Creatinine 12.10 H* Estim Creat Clear Calc 8.55 Est GFR (MDRD) Af Amer 6 L Est GFR (MDRD) Non-Af 5 L BUN/Creatinine Ratio 4.2 L Glucose 106 Lactic Acid 2.0 Calcium 10.3 H B-Natriuretic Peptide Procalcitonin COVID-19 (CARLOS) 02/15/21 02/15/21 02/15/21 05:10 05:10 06:35 WBC RBC Hgb Hct MCV MCH MCHC RDW Std Deviation RDW Coeff of Lance Plt Count MPV Immature Gran % (Auto) Neut % (Auto) Lymph % (Auto) [place] % (Auto) Eos % (Auto) Baso % (Auto) Absolute Neuts (auto) Absolute Lymphs (auto) Nucleated RBC % Diff Path Review Anisocytosis PT INR Sodium 133 L Potassium 4.9 Chloride 92 L Carbon Dioxide 33.0 H Anion Gap 8 BUN 33 H Creatinine 9.13 H* Estim Creat Clear Calc 11.33 Est GFR (MDRD) Af Amer 8 L Est GFR (MDRD) Non-Af 7 L BUN/Creatinine Ratio 3.6 L Glucose 95 Lactic Acid Calcium 9.4 B-Natriuretic Peptide 198.7 H Procalcitonin 49.95 H COVID-19 (CARLOS) 02/15/21 07:10 WBC RBC Hgb Hct MCV MCH MCHC RDW Std Deviation RDW Coeff of Lance Plt Count MPV Immature Gran % (Auto) Neut % (Auto) Lymph % (Auto) [place] % (Auto) Eos % (Auto) Baso % (Auto) Absolute Neuts (auto) Absolute Lymphs (auto) Nucleated RBC % Diff Path Review Anisocytosis PT INR Sodium Potassium Chloride Carbon Dioxide Anion Gap BUN Creatinine Estim Creat Clear Calc Est GFR (MDRD) Af Amer Est GFR (MDRD) Non-Af BUN/Creatinine Ratio Glucose Lactic Acid Calcium B-Natriuretic Peptide Procalcitonin COVID-19 (CARLOS) Not Detected Micro: Microbiology 02/14/21 16:25 SARS-CoV-2 Antigen (Rapid) - Final Interface Orders Radiology Impression Abdomen/Pelvis CT 02/14/21 12:10 IMPRESSION: Persistent evidence of suspect medical renal disease with some cortical thinning, hyperdense cortices and stable simple cysts. No specific follow-up for the simple cysts needed. Bony structures show degenerative change suggesting osteodystrophy Retained stool in the colon Normal appendix visualized Interstitial edema in the lung bases suggesting pulmonary vascular congestion Electronically Signed: Luther Ferrer MD at 13:34 EDT , Service support , Chest X-Ray 02/14/21 12:10 IMPRESSION: Interstitial and airspace opacifications in both lung page. Follow-up recommended to assure resolution. Findings can BE seen with CHF, multifocal pneumonitis or Covid Electronically Signed: Luther Ferrer MD at 13:28 EDT , Service support ,
[2021-02-15 13:00] LABS: Vancomycin, Random Level 21.2 ug/mL (0.0-15.0)
--- NOTE | 2021-02-15 13:38 | CASEMGMT ---
RACHEL PARNELL NOTE: Pt qualifies for a Palliative referral per the [facility] palliative screening tool at this time d/t ESRD. Dr Collins aware but is not agreeable to Palliative referral at this time. Sandra KENNEDY RN CM
[2021-02-15 14:13] LABS: Procalcitonin > 50.00 ng/mL (0.00-0.09)
--- NOTE | 2021-02-15 16:36 | CHAPLAIN ---
Type of Pastoral Visit _x__ Initial Visit ___ Follow-up Visit ___ On-call Visit ___ General Patient Visit ___ Spiritual Assessment ___ Family Conference ___ Bereavement ___ Rapid Response ___ Code Blue ___ Other (describe below) Pastoral Care Referral From _x__ Patient ___ Family ___ Nurse ___ Physician ___ Truss Puller Helper ___ Handy Man ___ Other (describe below) Sacrament/Intervention _x__ Active listening ___ Anointing ___ Evangelical ___ Bereavement ___ Communion _x__ Layla exploration ___ _x__ Life review _x__ Prayer ___ Reconciliation ___ Sacrament of Sick _x__ Supportive presence ___ Wedding ___ Other (describe below) Pastoral Comments
[2021-02-15] MEDS: Docusate Sodium 100 MG Capsule PO (20:29)
[2021-02-15] MEDS: oxyCODONE 5 MG Tablet PO (23:52)
[2021-02-16] VITALS (29 sets, daily range): BP systolic 67–125; BP diastolic 24–64; PULSE 62–85; RESP 14–23; TEMP 36.7–36.9; O2SAT 19–100
--- NOTE | 2021-02-16 06:09 | PCM.PN.INT ---
Assessment & Plan Assessment/Plan (1) Septic shock: PLAN: RECOMMENDATIONS: 1. Proceed with dialysis today per nephrology recommendations. 2. Discontinue Levophed. 3. Continue midodrine scheduled 3 times daily. 4. Discontinue vancomycin. 5. If cultures remain negative tomorrow, Zosyn can be discontinued. IMPRESSIONS: 1. Hypotension Septic shock has been ruled out at this time. Clinical suspicion that the patient's underlying hypotension is likely secondary to vasculopathy, as opposed to lilliam infectious etiology. Despite his hemodynamic status, the patient's mentation has always been normal. Infectious work-up thus far has been unrevealing to date. Vancomycin will be discontinued. If cultures remain negative tomorrow, Zosyn can be discontinued. The patient will be maintained on 3 times daily midodrine as ordered. Levophed will be discontinued. 2. End-stage renal disease on hemodialysis Continue routine hemodialysis support per nephrology recommendations. 3. Coagulopathy The patient did present to the hospital with a supratherapeutic INR. Plan to continue to hold his Coumadin for now. 4. History of paroxysmal atrial fibrillation/obesity/superficial wound Complicates care, management, recovery and prognosis. Continue local wound care. This note was generated with [email or web address] dictation software. It may contain incorrect words, spelling, and punctuation that were not noted in checking the note before signing. Subjective Subjective The patient was seen and examined at the bedside this morning. Events from the last 24 hours have been reviewed. The patient is currently afebrile and maintaining appropriate oxygen saturations on 2 L/min. He does remain on low-dose Levophed at 2 mcg/min to maintain hemodynamic stability. No issues were noted by the overnight nursing staff. Objective Data Objective Data The patient's most recent lab work, culture data and imaging studies have all been personally reviewed. Coronavirus PCR was negative. Blood and wound cultures are pending. Vital Signs: Vital Signs Temp Pulse Resp BP Pulse Ox 98.2 F 79 20 H 100/49 L 100 02/16/21 04:00 02/16/21 05:00 02/16/21 05:00 02/16/21 05:00 02/16/21 05:00 Oxygen Flow Rate (L/min) 2 Oxygen Delivery Method Nasal Cannula Weight: 300 lb 11.192 oz Body Mass Index (BMI) 42.3 Intake & Output: Intake and Output for Last 24 Hours 02/14/21 02/15/21 02/16/21 23:59 23:59 23:59 Intake Total 1707.18 / 1725.98 950.65 / 951.49 318.84 / 318.84 Output Total 1800 / 3600 1800 / 1800 Balance -92.82 / -1874.02 -849.35 / -848.51 318.84 / 318.84 Lab / Micro Data Attestation: I reviewed the patient's lab results. Result Diagrams: 02/16/21 04:00 02/16/21 04:00 Labs: Laboratory Results - last 24 hr 02/14/21 02/15/21 02/15/21 12:55 05:10 05:10 Diff Path Review Reviewed Sodium 133 L Potassium 4.9 Chloride 92 L Carbon Dioxide 33.0 H Anion Gap 8 BUN 33 H Creatinine 9.13 H* Estim Creat Clear Calc 11.33 Est GFR (MDRD) Af Amer 8 L Est GFR (MDRD) Non-Af 7 L BUN/Creatinine Ratio 3.6 L Glucose 95 Calcium 9.4 B-Natriuretic Peptide 198.7 H Procalcitonin Random Vancomycin COVID-19 (CARLOS) 02/15/21 02/15/21 02/15/21 06:35 07:10 12:00 Diff [address] Review Sodium Potassium Chloride Carbon Dioxide Anion Gap BUN Creatinine Estim Creat Clear Calc Est GFR (MDRD) Af Amer Est GFR (MDRD) Non-Af BUN/Creatinine Ratio Glucose Calcium B-Natriuretic Peptide Procalcitonin 49.95 H > 50.00 H Random Vancomycin COVID-19 (CARLOS) Not Detected 02/15/21 12:00 Diff Path Review Sodium Potassium Chloride Carbon Dioxide Anion Gap BUN Creatinine Estim Creat Clear Calc Est GFR (MDRD) Af Amer Est GFR (MDRD) Non-Af BUN/Creatinine Ratio Glucose Calcium B-Natriuretic Peptide Procalcitonin Random Vancomycin 21.2 H COVID-19 (CARLOS) Micro: Microbiology 02/14/21 16:25 Interface Orders SARS-CoV-2 Antigen (Rapid) - Final Physical Exam Const alert, oriented x3 and no apparent distress Constitutional Narrative: Sitting in bedside recliner General Appearance: cooperative HEENT normocephalic, head/scalp atraumatic and moist oral mucous membranes Eyes PERRL and EOMs intact bilaterally Neck supple General: trachea midline Resp normal respiratory effort Auscultation: clear to auscultation bilaterally Cardio regular rate and regular rhythm GI normal to inspection, nondistended, normoactive bowel sounds Extremity no clubbing, cyanosis or edema Skin Wound Narrative: Right flank superficial wound Neuro oriented x3, CN's II-XII intact bilaterally and no focal motor deficits Psych cooperative and affect normal Charges/Coding Visit Charges Inpatient E&M: 01813 Subs Hosp L3
[2021-02-16] MEDS: BRIMONIDINE 0.2% 5ML BOTTLE 1 DRP LEFT EYE ×3 (06:44→22:41)
--- NOTE | 2021-02-16 07:44 | PCM.PN.HOSP ---
Subjective Subjective Patient seen remains in ICU. Still remains on Levophed. Wound and blood cultures so far negative to date Objective Data Objective Data Vital Signs: Vital Signs Temp Pulse Resp BP Pulse Ox 98.2 F 74 16 67/29 L 97 02/16/21 04:00 02/16/21 07:21 02/16/21 07:00 02/16/21 07:00 02/16/21 07:00 Oxygen Flow Rate (L/min) 2 Oxygen Delivery Method Nasal Cannula Weight: 166.9 kg Body Mass Index (BMI) 42.3 Intake & Output: Intake and Output for Last 24 Hours 02/14/21 02/15/21 02/16/21 23:59 23:59 23:59 Intake Total 1707.18 / 1725.98 950.65 / 951.49 328.24 / 328.24 Output Total 1800 / 3600 1800 / 1800 Balance -92.82 / -1874.02 -849.35 / -848.51 328.24 / 328.24 Lab / Micro Data Result Diagrams: 02/16/21 04:00 02/16/21 04:00 Labs: Laboratory Results - last 24 hr 02/14/21 02/15/21 02/15/21 12:55 05:10 06:35 Diff Path Review Reviewed B-Natriuretic Peptide 198.7 H Procalcitonin 49.95 H Random Vancomycin COVID-19 (CARLOS) 02/15/21 02/15/21 02/15/21 07:10 12:00 12:00 Diff Path Review B-Natriuretic Peptide Procalcitonin > 50.00 H Random Vancomycin 21.2 H COVID-19 (CARLOS) Not Detected Micro: Microbiology 02/14/21 16:25 Interface Orders SARS-CoV-2 Antigen (Rapid) - Final Physical Exam Narrative GENERAL: cooperative HEENT: Atraumatic; EYES; Anicteric, Normal Conjunctiva NECK; supple, normal thyroid, RESPIRATORY: Diminished to auscultation CARDIOVASCULAR:? Regular S1 S2, GI:? soft, normoactive bowel sounds, : No Renal angle tenderness; EXTREMITIES:? No edema, no clubbing, MUSCULOSKELETAL:? no muscle waisting NEURO:? Awake;? no lateralizing signs. SKIN:? 3cm scab/wound on the right lower back PSYCH; Flat? affect Assessment & Plan Assessment/Plan (1) SIRS (systemic inflammatory response syndrome): (2) Septic shock: (3) ESRD on hemodialysis: (4) Anemia of chronic disorder: (5) Essential (primary) hypertension: (6) Paroxysmal atrial fibrillation: PLAN: Patient is a 40-year-old gentleman with history of chronic wound on the back, end-stage renal disease who presented to the emergency department with generalized malaise and chills.? Event of septic shock made admitted to the intensive care unit for further management 1.? Septic shock ?Suspected to be secondary to infected wound versus other etiology.? Patient was started on broad-spectrum antibiotics per therapy resuscitated with aggressive IV fluid and cultures sent.? Patient progressed being monitored with serial lactic acid level.? Patient was also started on Levophed.? Patient rapid Covid screen was negative however PCR has been ordered given his presentation ?02/16/2021; Patient seen remains in ICU. Still remains on Levophed. Wound and blood cultures so far negative to date 2.? Chronic wound ?Involving the back consult placed to the wound care nurse for dressing changes 3.? End-stage renal disease ?On hemodialysis on Wednesdays and Fridays consultation placed to nephrology for dialysis orders -?02/16/2021; scheduled to undergo dialysis this a.m. 4.? Paroxysmal A. fib ?Rate controlled on amiodarone.? On systemic anticoagulation with Coumadin which is being held in view of elevated INR of 3.7 on admission 5.? Morbid obesity - With a BMI of 43.1 patient was counseled on weight reduction 6.? Anemia - Secondary to chronic disorder/ESRD monitoring H&H and transfuse if patient becomes symptomatic or hemoglobin falls below? 7/ 7.? Orthostasis ?Patient is on midodrine continue 8.? DVT prophylaxis ?Patient is on Coumadin which is being held in view of elevated INR Visit Charges Inpatient E&M: 88954 Subs Hosp L2 Multi Select Codes Visit Charges Visit Charges: 18567 Subs Hosp L2
[2021-02-16] MEDS: Midodrine HCl 5 MG Tablet 10 MG PO ×3 (07:53→17:17)
[2021-02-16] MEDS: Ferrous Sulfate 325 MG Tablet PO ×2 (07:53→17:17)
[2021-02-16] MEDS: SEVELAMER CARBONATE 800 MG TABLET PO ×3 (07:53→17:17)
[2021-02-16] MEDS: Amiodarone 200 MG Tablet PO (07:53)
[2021-02-16 08:18] LABS: Absolute Lymphocyte Count 0.83 X10^3/uL (0.83-4.51); Absolute Neutrophil Count 9.5 X10^3/uL (2.0-7.7); Basophil# 0.04 X10^3/uL; Basophil% 0.3 % (0-1); Eosinophil# 0.19 X10^3/uL; Eosinophils% 1.6 % (0-5); Hematocrit 35.6 % (40-54); Hemoglobin 10.8 g/dL (13.0-16.5); Lymphocyte # 0.83 X10^3/ul (0.83-4.51); Lymphocyte % 6.8 % (19-41); Mean Corp Hgb Conc 30.3 g/dL (32-36); Mean Corpuscular Hgb 30.3 pg (27.0-32.0); Mean Platelet Vol. 11.3 fl (6.2-12.0); Monocyte# 1.46 X10^3/uL; NRBC Flagged by Analyzer 0 % (0-5); Neutrophil # 9.51 X10^3/uL (2.7-7.7); Neutrophil % 78.6 % (47-70); POSITIVE MORPHOLOGY YES; Platelet Count 205 K/mm3 (150-450); RBC Distribution Width CV 18.6 % (11.6-14.6); RBC Distribution Width SD 69.7 fl (35.1-43.9); Red Blood Count 3.56 M/mm3 (4.6-6.2); White Blood Count 12.1 K/mm3 (4.4-11.0)
[2021-02-16 08:27] LABS: Differential Indicated SCAN CRITERIA MET
[2021-02-16 08:33] LABS: Anion Gap 10 (5-15); BUN 52 mg/dL (7-18); BUN/Creat Ratio 4.5 RATIO (10-20); Calcium,Total 9.8 mg/dL (8.5-10.1); Chloride 93 mmol/L (98-107); EST Glomerular Filtration Rate 5 mL/min (>60); Est Glom Filt Rate - Afr Amer 6 mL/min (>60); Estimated Creatinine Clearance 8.99 ml/min; Glucose 92 mg/dL (74-106); Potassium 4.8 mmol/L (3.5-5.1); Sodium Level 134 mmol/L (136-145)
[2021-02-16 08:41] LABS: Anisocytosis 2+; Differential Comment SCANNED; Hypochromasia 1+; Macrocytosis 1+
--- NOTE | 2021-02-16 09:31 | CASEMGMT ---
RN SOHEILA NOTE: Call placed to [facility]. They were notified pt is not medically ready for discharge today, but anticipate he will be ready to d/c over the weekend. Sandra BSN RN CM
[2021-02-16] MEDS: Heparin 10,000 UNITS/10 ML Vial 14000 UNITS IV (10:11)
--- NOTE | 2021-02-16 13:33 | DIALYSIS ---
HD x 4.5 hours complete. Tolerated tx well. Had some cramping towards the end of tx. Cramping resolved post tx. Ran on 2k bath. UF of 4400ml. Used right thigh graft. [place] removed post tx and pressure applied x 10 minutes. Hemostasis achieved. Fresh gauze and tape applied. Report was given to RACHEL Serrano.
--- NOTE | 2021-02-16 16:33 | NURSING ---
report called to pcu transferred per bed with belongings to room 124
[2021-02-16] MEDS: oxyCODONE 5 MG Tablet PO (17:21)
--- NOTE | 2021-02-16 17:30 | PCM.PN.REN ---
Subjective Subjective The patient denies headache fever chills. Still has some abdominal discomfort. Objective Data Objective Data Vital Signs: Vital Signs Temp Pulse Resp BP Pulse Ox 98.1 F 78 18 73/35 L 96 02/16/21 17:05 02/16/21 17:05 02/16/21 17:05 02/16/21 17:05 02/16/21 17:05 Oxygen Flow Rate (L/min) 1 Oxygen Delivery Method Nasal Cannula Weight: 166.9 kg Body Mass Index (BMI) 42.3 Intake & Output: Intake and Output for Last 24 Hours 02/14/21 02/15/21 02/16/21 23:59 23:59 23:59 Intake Total 1707.18 / 1725.98 950.65 / 951.49 660.74 / 660.74 Output Total 1800 / 3600 1800 / 1800 Balance -92.82 / -1874.02 -849.35 / -848.51 660.74 / 660.74 Lab / Micro Data Result Diagrams: 02/16/21 04:00 02/16/21 04:00 Labs: Laboratory Results - last 24 hr 02/16/21 02/16/21 04:00 04:00 WBC 12.1 H RBC 3.56 L Hgb 10.8 L Hct 35.6 L MCV 100.0 H MCH 30.3 MCHC 30.3 L RDW Std Deviation 69.7 H RDW Coeff of Lance 18.6 H Plt Count 205 MPV 11.3 Immature Gran % (Auto) 0.700 Neut % (Auto) 78.6 H Lymph % (Auto) 6.8 L [place] % (Auto) 12.0 H Eos % (Auto) 1.6 Baso % (Auto) 0.3 Absolute Neuts (auto) 9.5 H Absolute Lymphs (auto) 0.83 Nucleated RBC % 0 Differential Comment SCANNED Hypochromasia 1+ Anisocytosis 2+ Macrocytosis 1+ Sodium 134 L Potassium 4.8 Chloride 93 L Carbon Dioxide 31.0 Anion Gap 10 BUN 52 H Creatinine 11.50 H* Estim Creat Clear Calc 8.99 Est GFR (MDRD) Af Amer 6 L Est GFR (MDRD) Non-Af 5 L BUN/Creatinine Ratio 4.5 L Glucose 92 Calcium 9.8 Micro: Microbiology 02/14/21 13:35 Blood Culture (Wb) - Left Hand Blood Culture - Preliminary No growth in 48 hours. 02/14/21 12:55 Blood Culture (Wb) - Left Hand Blood Culture - Preliminary No growth in 48 hours. 02/14/21 16:25 Interface Orders SARS-CoV-2 Antigen (Rapid) - Final Physical Exam Const alert and no apparent distress General Appearance: comfortable HEENT normocephalic HEENT Narrative: atraumatic Neck General: normal visual inspection and trachea midline Resp normal respiratory effort and clear to auscultation bilaterally Cardio regular rate, regular rhythm, S1 normal heart sound and S2 normal heart sound GI soft to palpation and non-tender GI Narrative: obese Extremity no clubbing, cyanosis or edema Extremity Narrative: Right leg AV graft good thrill and bruit no discharge no erythema Neuro Sensorium / Orientation: awake and alert Assessment & Plan Assessment/Plan (1) ESRD on hemodialysis: PLAN: Tolerated 4.4 L off net UF with dialysis transferred out of the ICU off Levophed (2) Anemia of chronic disorder: PLAN: No need for ANABELLA monitor (3) Secondary renal hyperparathyroidism: PLAN: Continue to monitor calcium and phosphorus continue binders (4) Septic shock: PLAN: Follow-up blood cultures continue broad-spectrum antibiotics,
[2021-02-17] VITALS (7 sets, daily range): BP systolic 82–100; BP diastolic 43–67; PULSE 77–89; RESP 15–18; TEMP 36.5–37.2; O2SAT 94–100
[2021-02-17] MEDS: BRIMONIDINE 0.2% 5ML BOTTLE 1 DRP LEFT EYE ×2 (05:50→14:13)
--- NOTE | 2021-02-17 08:12 | PN.CC_ITS ---
Assessment & Plan Assessment/Plan (1) Septic shock: PLAN: RECOMMENDATIONS: 1. Proceed with dialysis per nephrology recommendations. 2. Monitor mental status to guide blood pressure management 3. Continue midodrine scheduled 3 times daily. 4. Consider infectious disease evaluation 5. Reasonable to treat with abbreviated course of antibiotics at this time 6. Possibly sign off from a critical care perspective if no events over the next 24 hours IMPRESSIONS: 1. Hypotension Septic shock has been ruled out at this time. Clinical suspicion that the patient's underlying hypotension is likely secondary to vasculopathy, as opposed to lilliam infectious etiology. Despite his hemodynamic status, the patient's mentation has always been normal. Infectious work-up thus far has been unrevealing to date. Cultures have been negative. Patient's pro calcitonin is significantly elevated, but patient is not having any fevers or other const itutional symptoms to suggest active infection. Despite lower blood pressures, patient's mentation appears to be appropriate. This is likely a better guide moving forward. Reassuring the patient was able to tolerate dialysis without significant symptomatology. 2. End-stage renal disease on hemodialysis Continue routine hemodialysis support per nephrology recommendations. 3. Coagulopathy The patient did present to the hospital with a supratherapeutic INR. Plan to continue to hold his Coumadin for now. 4. History of paroxysmal atrial fibrillation/obesity/superficial wound Complicates care, management, recovery and prognosis. Continue local wound care. This note was generated with [employer] dictation software. It may contain incorrect words, spelling, and punctuation that were not noted in checking the note before signing. Subjective Subjective Patient did okay overnight. No acute issues were reported. Patient reportedly had tolerated dialysis yesterday and slept most of the day. Patient is not reporting any pain at this time. Patient does state that he has not attempted to make it out of bed yet since dialysis. Objective Data Objective Data Vital Signs: Vital Signs Temp Pulse Resp BP Pulse Ox 37.2 C 78 15 100/50 L 99 02/17/21 05:51 02/17/21 07:00 02/17/21 05:51 02/17/21 05:51 02/17/21 05:51 Oxygen Flow Rate (L/min) 1 Oxygen Delivery Method Nasal Cannula Weight: 132.8 kg Body Mass Index (BMI) 42.3 Intake & Output: Intake and Output for Last 24 Hours 02/15/21 02/16/21 02/17/21 23:59 23:59 23:59 Intake Total 950.65 / 951.49 910.74 / 1150.74 410 / 410 Output Total 1800 / 1800 Balance -849.35 / -848.51 910.74 / 1150.74 410 / 410 Lab / Micro Data Result Diagrams: 02/16/21 04:00 02/16/21 04:00 Labs: Laboratory Results - last 24 hr 02/16/21 02/16/21 04:00 04:00 WBC 12.1 H RBC 3.56 L Hgb 10.8 L Hct 35.6 L MCV 100.0 H MCH 30.3 MCHC 30.3 L RDW Std Deviation 69.7 H RDW Coeff of Lance 18.6 H Plt Count 205 MPV 11.3 Immature Gran % (Auto) 0.700 Neut % (Auto) 78.6 H Lymph % (Auto) 6.8 L Wheeler % (Auto) 12.0 H Eos % (Auto) 1.6 Baso % (Auto) 0.3 Absolute Neuts (auto) 9.5 H Absolute Lymphs (auto) 0.83 Nucleated RBC % 0 Differential Comment SCANNED Hypochromasia 1+ Anisocytosis 2+ Macrocytosis 1+ Sodium 134 L Potassium 4.8 Chloride 93 L Carbon Dioxide 31.0 Anion Gap 10 BUN 52 H Creatinine 11.50 H* Estim Creat Clear Calc 8.99 Est GFR (MDRD) Af Amer 6 L Est GFR (MDRD) Non-Af 5 L BUN/Creatinine Ratio 4.5 L Glucose 92 Calcium 9.8 Micro: Microbiology 02/14/21 13:35 Blood Culture (Wb) - Left Hand Blood Culture - Preliminary No growth in 48 hours. 02/14/21 12:55 Blood Culture (Wb) - Left Hand Blood Culture - Preliminary No growth in 48 hours. 02/14/21 16:25 Interface Orders SARS-CoV-2 Antigen (Rapid) - Final Physical Exam Const alert, oriented x3 and no apparent distress Constitutional Narrative: Moving around bed appropriately General Appearance: cooperative HEENT normocephalic and head/scalp atraumatic Eyes PERRL and EOMs intact bilaterally Neck full ROM Lymph Lymphatic: no lymphadenopathy noted Chest inspection of chest normal Resp normal respiratory effort and no use of accessory muscles Effort and Inspection: Negative for actively coughing Auscultation: clear to auscultation bilaterally Cardio regular rate, regular rhythm, S1 normal heart sound, no murmurs and no rub GI normal to inspection, nondistended, normoactive bowel sounds no CVA tenderness Extremity no clubbing, cyanosis or edema Skin Wound Narrative: Right flank superficial wound Neuro oriented x3 and CN's II-XII intact bilaterally Psych cooperative and affect normal Charges/Coding Visit Charges Inpatient E&M: 44129 Subs Hosp L2
[2021-02-17] MEDS: SEVELAMER CARBONATE 800 MG TABLET PO ×2 (08:21→14:12)
[2021-02-17] MEDS: Amiodarone 200 MG Tablet PO (08:22)
[2021-02-17] MEDS: Midodrine HCl 5 MG Tablet 10 MG PO ×2 (08:22→14:12)
[2021-02-17] MEDS: Docusate Sodium 100 MG Capsule PO (08:22)
[2021-02-17] MEDS: Ferrous Sulfate 325 MG Tablet PO (08:22)
--- NOTE | 2021-02-17 10:47 | DS.PCM_ITS ---
Providers Date of Admission: 02/14/21 Primary Care Physician: Dr. Pawel Banda MD Consultations 02/14/21 19:47 Consult: Stitcher Set Up Operator Automatic / Pulmonary Medicine Routine Consulting Provider: Pulmonary Medicine luiza Yao Reason for Consult: HYPOTENSION EMERGENT Consult: No Notified: Yes Date Notified:: 02/14/21 Time Notified: 19:46 Method of Notification: Text 02/15/21 12:50 Consult: Nephrology Routine Consulting Provider: Marcelo Campa Reason for Consult: kidney failure/ESRD EMERGENT Consult: No Notified: Yes Date Notified:: 02/15/21 Time Notified: 12:50 Method of Notification: Verbal Reason For Visit: SEPSIS Diagnosis Discharge Diagnosis (1) Septic shock: Status: Acute Code(s): A41.9 - Sepsis, unspecified organism; R65.21 - Severe sepsis with septic shock Medications at Discharge Home Medications ferric citrate 630 mg PO TIDCM 02/05/19 warfarin 7.5 mg PO DAILY 10/06/20 brimonidine 1 drp LEFT EYE TID #1 bottle 10/09/20 oxycodone 5 mg tablet 5 mg PO DAILY PRN 01/30/21 Nurtec ODT 75 mg PO X1 PRN #5 tab 02/12/21 amiodarone [Pacerone] 200 mg PO DAILY 02/12/21 acetaminophen 1,000 - 1,500 mg PO TID 02/14/21 midodrine 5 mg PO TID 02/14/21 cefdinir 300 mg PO Q12H #10 cap 02/17/21 Hospital Course Procedures PICC line placement Summary of Care Provided Minutes Spent on Discharge: 35 Hospital Course: 1.? Septic shock ?Suspected to be secondary to infected wound versus other etiology.? Patient was started on broad-spectrum antibiotics per therapy resuscitated with aggressive IV fluid and cultures sent.? Patient progressed being monitored with serial lactic acid level.? Patient was also started on Levophed.? Patient rapid Covid screen was negative however PCR has been ordered given his presentation ?02/16/2021; Patient seen remains in ICU.? Still remains on Levophed.? Wound and blood cultures so far negative to date -02/17/2022. Patient Levophed was weaned off the day prior. Cultures did remain negative. Prescription was written for cefdinir for treatment of the infected wound on of his low back. 2.? Chronic wound ?Involving the back consult placed to the wound care nurse for dressing changes 3.? End-stage renal disease ?On hemodialysis on Wednesdays and Fridays consultation placed to nephrology for dialysis orders -?02/16/2021; scheduled to undergo dialysis this a.m. 4.? Paroxysmal A. fib ?Rate controlled on amiodarone.? On systemic anticoagulation with Coumadin which is being held in view of elevated INR of 3.7 on admission 5.? Morbid obesity - With a BMI of 43.1 patient was counseled on weight reduction 6.? Anemia - Secondary to chronic disorder/ESRD monitoring H&H and transfuse if patient becomes symptomatic or hemoglobin falls below? 04/04.? Orthostasis ?Patient is on midodrine continue 8.? DVT prophylaxis ?Patient is on Coumadin which is being held in view of elevated INR Physical Exam Narrative GENERAL: cooperative HEENT: Atraumatic; EYES; Anicteric, Normal Conjunctiva NECK; supple, normal thyroid, RESPIRATORY: Diminished to auscultation CARDIOVASCULAR:? Regular S1 S2, GI:? soft, normoactive bowel sounds, : No Renal angle tenderness; EXTREMITIES:? No edema, no clubbing, MUSCULOSKELETAL:? no muscle waisting NEURO:? Awake;? no lateralizing signs. SKIN:? 3cm scab/wound on the right lower back PSYCH; Flat? affect ABG / Lab / Microbiology Data Result Diagrams: 02/16/21 04:00 02/16/21 04:00 Microbiology: Microbiology 02/14/21 13:35 Blood Culture - Preliminary Blood Culture (Wb) - Left Hand No growth in 48 hours. 02/14/21 12:55 Blood Culture - Preliminary Blood Culture (Wb) - Left Hand No growth in 48 hours. Microbiology 02/14/21 13:35 Blood Culture (Wb) - Left Hand Blood Culture - Preliminary No growth in 48 hours. 02/14/21 12:55 Blood Culture (Wb) - Left Hand Blood Culture - Preliminary No growth in 48 hours. 02/14/21 16:25 Interface Orders SARS-CoV-2 Antigen (Rapid) - Final D/C Instructions Discharge Diet: Renal Diet Discharge Activity: Return to Normal Activity Call your doctor if you observe: Fever of 101 or Higher, Shortness of breath, Fainting spells and Chest pain Meaningful Use Info Meaningful Use Diagnoses (Choose all that apply): None applicable Discharge Plan Admission Admit Date/Time: 02/14/21 17:54 Attending Provider: Wild Collins Primary Care Provider: Pawel Banda Consulting Providers: Cooper Nieves ; Mckinley Kc ; Clau Duke NP ; Marcelo Campa Discharge Orders/Prescriptions Prescriptions: New cefdinir 300 mg capsule 300 mg PO Q12H Qty: 10 RF: 0 Continued oxycodone 5 mg tablet 5 mg PO DAILY PRN (Reason: Pain) RF: 0 ferric citrate 210 MG tablet 630 mg PO TIDCM RF: 0 warfarin 5 MG tablet 7.5 mg PO DAILY RF: 0 brimonidine 1 DROP bottle 1 drp LEFT EYE TID Qty: 1 RF: 0 amiodarone [Pacerone] 200 mg tablet 200 mg PO DAILY RF: 0 Nurtec ODT 75 mg tablet,disintegrating 75 mg PO X1 PRN (Reason: migraine headache) Qty: 5 RF: 0 midodrine 5 mg tablet 5 mg PO TID RF: 0 acetaminophen 500 mg Capsule 1,000 - 1,500 mg PO TID RF: 0 Referrals / Follow Up: Pawel Banda MD [Primary Care Provider] - Within 2 Weeks Disposition Disposition (needs filled in before D/C Order can be placed): Home, self care Visit Charges Inpatient E&M: 58077 Disch Hosp
--- NOTE | 2021-02-17 10:54 | DCINST_ITS ---
Discharge Instructions Diet Discharge Diet: Renal Diet Activity Discharge Activity: Return to Normal Activity Dressing / Incision Call your doctor if you observe: Fever of 101 or Higher, Shortness of breath, Fainting spells and Chest pain Follow Up Care Test Results: Test results from this visit will be discussed in further detail at your follow-up appointment, if applicable. Discharge Plan Admission Admit Date/Time: 02/14/21 17:54 Attending Provider: Wild Collins Primary Care Provider: Pawel Banda Consulting Providers: Cooper Nieves ; Mckinley Kc ; Clau Duke [employer] SUPERINTENDENT ; Marcelo Campa Discharge Orders/Prescriptions Prescriptions: New cefdinir 300 mg capsule 300 mg PO Q12H Qty: 10 RF: 0 Continued oxycodone 5 mg tablet 5 mg PO DAILY PRN (Reason: Pain) RF: 0 ferric citrate 210 MG tablet 630 mg PO TIDCM RF: 0 warfarin 5 MG tablet 7.5 mg PO DAILY RF: 0 brimonidine 1 DROP bottle 1 drp LEFT EYE TID Qty: 1 RF: 0 amiodarone [Pacerone] 200 mg tablet 200 mg PO DAILY RF: 0 Nurtec ODT 75 mg tablet,disintegrating 75 mg PO X1 PRN (Reason: migraine headache) Qty: 5 RF: 0 midodrine 5 mg tablet 5 mg PO TID RF: 0 acetaminophen 500 mg Capsule 1,000 - 1,500 mg PO TID RF: 0 Referrals / Follow Up: Marcelo Campa MD [STAFF PHYSICIAN] - (For dialysis as outpatient) Pawel Banda MD [Primary Care Provider] - Within 2 Weeks Disposition Disposition (needs filled in before D/C Order can be placed): Home, self care
--- NOTE | 2021-02-19 13:35 | CM.UR ---
RACHEL PARNELL Discharge Follow Up Phone Call: ROSIE: 15 Strata: 4 Call Date: 02.19.21 Discharge Date: Time of Call:1531 Duration:< 1 min Admitting Dx:sepsis RACHEL PARNELL attempted to complete follow up phone call after recent hospitalization. No answer, left message on identified voicemail with call back information.
--- NOTE | 2021-02-21 11:39 | CASEMGMT ---
Pt returned follow up tc from yesterday. Pt states he is doing ok, getting his strength back up. Pt states his CPAP machine mask is broken and the company he is using is not taking his insurance. Provided pt with local in network DME companies. Pt to follow up. Pt states he picked up his rx without difficulty. He will make his follow up appt with Dr. Banda but has not done so yet. Pt is going to dialysis. Pt denies further questions regarding his dc instructions or medications.
== END 2021-02-17 15:56 | disposition home or self-care (01) | DRG 853 ==
LOC: ED 16:01 → PCU 18:57 → ICU 19:26 → PCU 02-17 05:35
PROVIDERS: Internal Medicine; Internal Medicine Critical Care Medicine; Admitting Provider Student in an Organized Health Care Education/Training Program; Emergency Provider Emergency Medicine; PCP Internal Medicine; Visit Provider Internal Medicine
DX: A41.9 Sepsis, unspecified organism (principal); R65.21 Severe sepsis with septic shock; N18.6 End stage renal disease; Z68.41 Body mass index [BMI] 40.0-44.9, adult; I12.0 Hypertensive chronic kidney disease with stage 5 chronic kidney disease or end stage renal disease; H34.12 Central retinal artery occlusion, left eye; R47.01 Aphasia; I48.92 Unspecified atrial flutter; N25.81 Secondary hyperparathyroidism of renal origin; E87.2 Acidosis; E66.01 Morbid (severe) obesity due to excess calories; I48.0 Paroxysmal atrial fibrillation; D63.8 Anemia in other chronic diseases classified elsewhere; I25.2 Old myocardial infarction; M89.9 Disorder of bone, unspecified; M41.9 Scoliosis, unspecified; G89.29 Other chronic pain; G47.33 Obstructive sleep apnea (adult) (pediatric); H54.62 Unqualified visual loss, left eye, normal vision right eye; E83.52 Hypercalcemia; Z91.14 Patient's other noncompliance with medication regimen; R07.9 Chest pain, unspecified; R51.9 Headache, unspecified; R10.2 Pelvic and perineal pain; Z86.16 Personal history of COVID-19; Z99.2 Dependence on renal dialysis; Z86.711 Personal history of pulmonary embolism; Z86.718 Personal history of other venous thrombosis and embolism; Z79.01 Long term (current) use of 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s; Z79.899 Other long term (current) drug therapy; Z91.15 Patient's noncompliance with renal dialysis; S31.000A Unspecified open wound of lower back and pelvis without penetration into retroperitoneum, initial encounter; X58.XXXA Exposure to other specified factors, initial encounter
CPT/HCPCS: 11042; 36415; 70450; 71045; 74176; 80048; 80202; 83605; 83880; 84145; 84484; 85025; 85610; 87040; 87070; 87075; 87205; 87426; 87635; 90937; 93005; 97802; 99213; 99285; J7040; J7050; A4216; G0257; G0463; U0002

== ENCOUNTER 2021-02-14 12:02 | Outpatient (RCR) | payer MEDICARE, MEDICAID, SELFPAY ==
[2021-02-14 10:42] VITALS: BP 87/46; PULSE 102; RESP 20; TEMP 36.8; BMI 41.4
--- NOTE | 2021-02-14 12:39 | HP.PCM_ITS ---
History of Present Illness Date of Service: 02/15/21 Chief Complaint: follow up R lower Back wound History of Wound: 40 year old Black male in end stage renal on dialysis and has a primary Dr . He developed severe abd pain N V and fatigue to the point of unable to walk now .He usually works and walks. Extremely Obese and developed renal failure because of the hypertensive crisis 14 years ago. he is now chilling in the office but shows no temp The wound on his lower R back is in the fold of the skin and had been to 2 different Ed and they told him hi had shingles .They both put him on antibiotics . The wound is probably form clothing or something cutting into his skin and the wound appears clean and no erythema around him . He pulse ox well but is chilling and keeps holding his stomach .VS are stable ? covid or sepsis or both. [facility] Medical History (Updated 02/15/21 @ 13:[address] 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) Central retinal artery occlusion of left eye (10/09/20) Chronic kidney disease-mineral and bone disorder Chronic pelvic pain in male COVID-19 virus detected (03/20/20) Dialysis patient ESRD on hemodialysis Essential (primary) hypertension Expressive aphasia (04/05/20) Hearing loss Hematuria History of bacterial endocarditis History of blood clots History of non-ST elevation myocardial infarction (NSTEMI) (11/08/19) History of pulmonary embolus (PE) History of venous thromboembolism 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 due to renal insufficiency 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 prison current use of 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 Mechanical complication of arteriovenous fistula surgically created Mitral valve annular calcification Morbidly obese Non compliance w medication regimen Non-healing non-surgical wound Nonrheumatic mitral valve stenosis with insufficiency Obstructive sleep apnea Paroxysmal atrial fibrillation (06/10/20) Paroxysmal atrial flutter 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) Pelvic mass Unspecified symptoms and signs involving cognitive functions and awareness (04/05/20) Home Medications ferric citrate 630 mg PO TIDCM 02/05/19 [History Last Taken 02/13/21] warfarin 7.5 mg PO DAILY 10/06/20 [History Last Taken 02/13/21] brimonidine 1 drp LEFT EYE TID #1 bottle 10/09/20 [Rx Last Taken 02/13/21] oxycodone 5 mg tablet 5 mg PO DAILY PRN 01/30/21 [History Last Taken 02/08/21] amiodarone [Pacerone] 200 mg PO DAILY 02/12/21 [History Last Taken 02/13/21] rimegepant [Nurtec ODT] 75 mg PO X1 PRN #5 tab 02/12/21 [Rx Last Taken Unknown] acetaminophen [Tylenol Extra Strength] 1,000 - 1,500 mg PO TID 02/14/21 [History Last Taken 02/12/21] midodrine 5 mg PO TID 02/14/21 [History Last Taken 02/13/21] Allergy/AdvReac Type Severity Reaction Status Date / Time No Known Allergies Allergy Verified 02/12/21 19:09 Family History Other Adopted Surgical History History of cardioversion (12/02/18) history of cather replacement History of herniorrhaphy History of left heart catheterization (09/17/18) History of repair of congenital cleft palate Mechanical complication of dialysis catheter Status post creation of arteriovenous fistula Social History Smoking Status: Never smoker alcohol intake: never substance use type: marijuana what type of physical activity do you participate in: none ROS ROS Narrative extreme fatigue and unable to walk for the past week gone to 2 ED without help Constitutional Constitutional: Reports systems reviewed and no addt'l complaints, except as documented, chills and weakness Eyes Eyes: Reports systems reviewed and no addt'l complaints, except as documented Respiratory/Chest Respiratory/Chest: Reports systems reviewed and no addt'l complaints, except as documented and shortness of breath at rest Gastrointestinal Gastrointestinal: Reports systems reviewed and no addt'l complaints, except as documented, abdominal pain, dyspepsia, nausea and vomiting Musculoskeletal Musculoskeletal: Reports systems reviewed and no addt'l complaints, except as documented Integumentary Integumentary: Reports systems reviewed and no addt'l complaints, except as documented Neurologic Neurologic: Reports systems reviewed and no addt'l complaints, except as documented Psychiatric Psychiatric: Reports anxiety and depression Vital Signs Vital Signs Vital Signs: 02/14/21 10:42 Temperature 98.2 F Temperature Source Temporal Pulse Rate 102 H Respiratory Rate 20 H Blood Pressure 87/46 L Blood Pressure Mean 59 Physical Exam Const alert and oriented x3 General Appearance: cooperative and ill appearing HEENT Head and Scalp: normal to inspection Face and Sinus: normal facial exam Neck full ROM General: normal visual inspection Chest Chest: symmetrical chest wall rise Resp normal respiratory effort and normal air movement Resp Narrative: feels SOB Effort and Inspection: able to speak in complete sentences Auscultation: clear to auscultation bilaterally Cardio regular rate Jugular Venous Distention: Negative for JVD Palpation: normal PMI Rate: regular rate Rhythm: regular rhythm GI normal to inspection, nondistended, normoactive bowel sounds Skin Rashes: No no rashes Wounds: wounds noted Debridement Note Debridement Note Post-Debridement Measurements and Additional Note: Post-Debridement Measurements/Treatment GRISELDA - Nurse 1 - General Ulcer Assessment Start: 02/14/21 09:53 Freq: Status: Active Protocol: FAISAL Activity Type Activity Date Activity User E-Sign Co-Sign Detail Recorded Client Recorded Date Recorded By Document 02/14/21 10:42 LAN [id number] 02/14/21 10:47 PL 02/14/21 10:42 - Today's Visit Information Type of service Initial Visit Arrival Mode Wheelchair Transfer Assistance None Height and Weight Height 5 ft 10 in Weight 289 lb Weight in Pounds 289.0 lbs Body Mass Index (BMI) 41.4 BMI Classification Obese BSA - Erlin 2.44 Vital Signs Temperature (97.8 F-99.1 F) 98.2 F Temperature Source Temporal Pulse Rate (60-100) 102 H Respiratory Rate (12-18) 20 H Blood Pressure (90/60-120/80) 87/46 L Blood Pressure Mean 59 History Since Last Visit- (Skip if this is Patient's initial visit) Have you changed medications since your No last visit? Any new allergies or adverse reactions No Had a fall/change in ADL's that may No increase risk of falls Signs or symptoms of abuse and/or No neglect since last visit Have you been in the hospital since your No last visit? Has dressing in place as prescribed Yes Has compression in place as prescribed N/A Has offloadiing in place as prescribed N/A Experienced any changes in pain level or No management WC - Nurse 1 - General Ulcer Measurement Start: 02/14/21 09:53 Freq: Status: Active Protocol: Activity Type Activity Date Activity User E-Sign Co-Sign Detail Recorded Client Recorded Date Recorded By Document 02/14/21 10:42 PL [id number] 02/14/21 10:47 PL 02/14/21 10:42 Wound Center Nurse 1 #1 Right lower back -Combined with other wound No -Current Size (cm) - Length 1.3 -Current Size (cm) - Width 2.0 -Current Size (cm) - Depth 0.1 -Total Square Cm 2.60 -Date of Last Picture (Recall this 02/14/21 field) -Photo Taken Yes -Epithelialization None Present -Tunneling No -Undermining/Tunneling No -Circular Undermining No -Classification - Thickness Full Thickness without Exposed Support Structure -Exudate Amt Medium -Exudate Type Serosanguineous -Wound Margin Distinct, Outline Attached -Granulation Amt Medium (34-66%) -Granulation Quality [place] -Slough/Fibrin Yes -Necrosis Amt Medium (34-66%) -Necrotic Tissue Type Adherent Slough -Texture (Skye-wound Skin Appearance) No Abnormality -Moisture (Skye-wound Skin Appearance) No Abnormality -Color (Skye-wound Skin Appearance) No Abnormality -Temperature (Skye-wound Skin No Abnormality Appearance) (Pt Warm) -Ulcer Cleansing Rinsed/ Irrigated with Saline -Foul Odor after Cleansing No -Anesthetic Used 5% Lidocaine Gel WC - Nurse 2 - General Ulcer CM Notes Start: 02/14/21 09:53 Freq: Status: Active Protocol: Activity Type Activity Date Activity User E-Sign Co-Sign Detail Recorded Client Recorded Date Recorded By Document 02/14/21 11:10 MW [id number] 02/14/21 11:22 MW 02/14/21 11:10 Wound Center Nurse 2 -Time 11:13 -Correct Patient Yes -Correct Side, Site, Position Yes -Correct Procedure Yes -Procedure Performed Yes -Type of Procedure Debridement -Clinical Debridement Subcutaneous -Tissue Removed Subcutaneous -Post Debridement (cm) - Length 1.0 -Post Debridement (cm) - Width 2.2 -Post Debridement (cm) - Depth 0.2 -Total Square (Post) (cm) 2.20 -Area of Debridement (cm) - Length 1.0 -Area of Debridement (cm) - Width 2.2 -Total Square (Area) (cm) 2.20 -Tunneling No -Undermining/Tunneling No -Circular Undermining No -Wound/Ulcer Outcome Not Healed -Ulcer Cleansing Rinsed/ Irrigated with Saline -Foul Odor after Cleansing No -Bioengineered Tissue No -Bleeding Controlled with Pressure -Offloading No -Treatment Response Procedure Tolerated Well -Debridement - Subq, 1st 20sq cm Yes Pain Scale: 0-10 Numeric Is Patient Pain Free? Yes Wound debrided: R lower back wound Type of Debridement: Excisional debridement Anesthesia Used: 5% Lidocaine Gel Depth: Down to and including healthy tissue Percentage of wound debrided: 100 Instrument Used: 5mm curette Tissue Removed: fibrin Severity: Fat Layer Exposed Amount of bleeding with debridement: Mild Bleeding Controlled with: Pressure Patient tolerated procedure: Patient did not tolerate procedure well Lab / Micro Data Micro: cultures obtained Assessment/Plan Assessment/Plan (1) Non-healing non-surgical wound: CODE(S): Code(s): T14.8XXA - Other injury of unspecified body region, initial encounter PLAN: WAsh the area with antibacaterial soap and apply Aquacell Xtra and adaptic and gauze dressing follow up 1 week Will apply for epifix to the back (2) Sepsis: CODE(S): Code(s): A41.9 - Sepsis, unspecified organism QUALIFIERS: Sepsis acute organ dysfunction status: unspecified Sepsis type: sepsis due to unspecified organism Qualified Code(s): A41.9 - Sepsis, unspecified organism PLAN: SEnt the [facility] ED for evaluation and treatment (3) Exposure to COVID-19 virus: CODE(S): Code(s): Z20.822 - Contact with and (suspected) exposure to COVID-19
== END 2021-02-26 23:59 ==
LOC: WC 12:02
PROVIDERS: PCP Internal Medicine; Visit Provider Nurse Practitioner
DX: S31.000A Unspecified open wound of lower back and pelvis without penetration into retroperitoneum, initial encounter (principal); X58.XXXA Exposure to other specified factors, initial encounter; E66.01 Morbid (severe) obesity due to excess calories; I12.0 Hypertensive chronic kidney disease with stage 5 chronic kidney disease or end stage renal disease; Z99.2 Dependence on renal dialysis; N18.6 End stage renal disease; D63.8 Anemia in other chronic diseases classified elsewhere; Z86.16 Personal history of COVID-19; Z86.711 Personal history of pulmonary embolism; Z86.718 Personal history of other venous thrombosis and embolism; N25.81 Secondary hyperparathyroidism of renal origin; I48.0 Paroxysmal atrial fibrillation; Z91.14 Patient's other noncompliance with medication regimen; M41.9 Scoliosis, unspecified; Z79.01 Long term (current) use of 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s; Z79.899 Other long term (current) drug therapy; Z68.41 Body mass index [BMI] 40.0-44.9, adult; T14.8XXA Other injury of unspecified body region, initial encounter
CPT/HCPCS: 11042; 87070; 87075; 87205; 99213; G0463

== ENCOUNTER 2021-02-22 16:37 | Emergency (ER) | payer MEDICARE, MEDICAID, SELFPAY ==
[2021-02-14 17:23] VITALS: BMI 42.3
[2021-02-22 16:38] VITALS: BP 103/60; PULSE 100; RESP 16; TEMP 36.8; O2SAT 97; BMI 40.1
--- NOTE | 2021-02-22 17:23 | EDS_ITS ---
HPI History of Present Illness Chief Complaint: Other, Pain/Inj Informant: patient Onset/Context/Timing Onset: Today and Yesterday Timing: Intermittent Location: Right thigh Current Severity: Gone Maximum Severity: Moderate Associated Symptoms Associated Symptoms: None Narrative Narrative: Patient had hemodialysis yesterday. He has had intermittent bleeding at his fistula site in his right thigh. It has currently stopped with direct pressure. 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) Central retinal artery occlusion of left eye (10/09/20) Chronic kidney disease-mineral and bone disorder Chronic pelvic pain in male COVID-19 virus detected (03/20/20) Dialysis patient ESRD on hemodialysis Essential (primary) hypertension Expressive aphasia (04/05/20) Hearing loss Hematuria History of bacterial endocarditis History of blood clots History of non-ST elevation myocardial infarction (NSTEMI) (11/08/19) History of pulmonary embolus (PE) History of venous thromboembolism 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 due to renal insufficiency 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 Mechanical complication of arteriovenous fistula surgically created Mitral valve annular calcification Morbidly obese Non compliance w medication regimen Non-healing non-surgical wound Nonrheumatic mitral valve stenosis with insufficiency Obstructive sleep apnea Paroxysmal atrial fibrillation (06/10/20) Paroxysmal atrial flutter 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) Pelvic mass Unspecified symptoms and signs involving cognitive functions and awareness (04/05/20) Home Medications ferric citrate 630 mg PO TIDCM 02/05/19 [History Last Taken 02/13/21] warfarin 7.5 mg PO DAILY 10/06/20 [History Last Taken 02/13/21] brimonidine 1 drp LEFT EYE TID #1 bottle 10/09/20 [Rx Last Taken 02/13/21] oxycodone 5 mg tablet 5 mg PO DAILY PRN 01/30/21 [History Last Taken 02/08/21] Nurtec ODT 75 mg PO X1 PRN #5 tab 02/12/21 [Rx Last Taken Unknown] amiodarone [Pacerone] 200 mg PO DAILY 02/12/21 [History Last Taken 02/13/21] acetaminophen 1,000 - 1,500 mg PO TID 02/14/21 [History Last Taken 02/12/21] midodrine 5 mg PO TID 02/14/21 [History Last Taken 02/13/21] cefdinir 300 mg PO Q12H #10 cap 02/17/21 [Rx Last Taken Unknown] Allergy/AdvReac Type Severity Reaction Status Date / Time No Known Allergies Allergy Verified 02/12/21 19:09 Family History Other Adopted Surgical History History of cardioversion (12/02/18) history of cather replacement History of herniorrhaphy History of left heart catheterization (09/17/18) History of repair of congenital cleft palate Mechanical complication of dialysis catheter Status post creation of arteriovenous fistula Social History Smoking Status: Never smoker alcohol intake: never substance use type: marijuana what type of physical activity do you participate in: none ROS ROS ED Constitutional Constitutional ED: Denies chills or fever(s) Eyes Eyes: Denies change in vision ENT ENT ED: Denies ear pain Cardiovascular Cardiovascular: Denies chest pain Respiratory/Chest Respiratory/Chest: Denies dyspnea Gastrointestinal Gastrointestinal: Denies abdominal pain Genitourinary Genitourinary ED: Denies dysuria Musculoskeletal Musculoskeletal: Denies myalgias Integumentary Denies rash Neurologic Neurologic: Denies headache(s) Psychiatric Psychiatric: Denies depression Endocrine Endocrinology: Denies polyuria Allergic/Immunologic Allergic/Immunologic ED: Denies urticaria EXAM Physical Exam Const Vital Signs: 02/22/21 16:38 Temperature 98.2 F Temperature Source Temporal Pulse Rate 100 Respiratory Rate 16 Blood Pressure 103/60 Blood Pressure Mean 74 Pulse Ox 97 Oxygen Delivery Method Room Air Positive well nourished and well developed General Appearance ED: well developed Eyes EOMs intact bilaterally Neck supple Resp normal respiratory effort Cardio regular rhythm Extremity Extremity Narrative: Fistula right thigh General Extremety ED: Negative for edema or tenderness General Extremity: Negative for edema Neuro no sensory deficits noted Sensorium / Orientation: alert Motor Exam: strength 5/5 throughout Psych mental status grossly normal Skin no rashes or lesions noted MDM MDM MDM Narrative Medical decision making narrative: The site has stopped bleeding. Will wrap it with Gelfoam and a pressure dressing. He will apply direct pressure if it rebleeds. I advised it may rebleed. At this time there is no indication for any type of intervention, suturing, or anything that may potentially damage the site. He is planning to follow-up with dialysis tomorrow. He is planning to follow-up for an INR check next week. Patient has had no other bleeding or symptoms or complications. Discharge Plan Triage Chief Complaint: Other, Pain/Inj ED Provider: Maxi Munson Dx/Rx/DC Orders Clinical Impression: ESRD on hemodialysis Prescriptions: No Action oxycodone 5 mg tablet 5 mg PO DAILY PRN (Reason: Pain) RF: 0 ferric citrate 210 MG tablet 630 mg PO TIDCM RF: 0 warfarin 5 MG tablet 7.5 mg PO DAILY RF: 0 brimonidine 1 DROP bottle 1 drp LEFT EYE TID Qty: 1 RF: 0 amiodarone [Pacerone] 200 mg tablet 200 mg PO DAILY RF: 0 Nurtec ODT 75 mg tablet,disintegrating 75 mg PO X1 PRN (Reason: migraine headache) Qty: 5 RF: 0 midodrine 5 mg tablet 5 mg PO TID RF: 0 acetaminophen 500 mg Capsule 1,000 - 1,500 mg PO TID RF: 0 cefdinir 300 mg capsule 300 mg PO Q12H Qty: 10 RF: 0 Primary Care Provider: Pawel Banda Referrals: Pawel Banda MD [Primary Care Provider] - Disposition Disposition: Home, self care
[2021-02-22] MEDS: Gelfoam 12-7 MM Sponge (1) 1 EACH TOPICAL (19:21)
== END 2021-02-22 19:22 | disposition home or self-care (01) ==
PROVIDERS: Emergency Provider Emergency Medicine; PCP Internal Medicine
DX: N18.6 End stage renal disease (principal); E66.01 Morbid (severe) obesity due to excess calories; Z99.2 Dependence on renal dialysis; Z86.718 Personal history of other venous thrombosis and embolism; Z86.711 Personal history of pulmonary embolism
CPT/HCPCS: 99284

== ENCOUNTER 2021-02-27 02:07 | Emergency (ER) | payer MEDICARE, MEDICAID, SELFPAY ==
[2021-02-27 02:08] VITALS: BP 103/66; PULSE 105; RESP 20; TEMP 37.2; O2SAT 96; BMI 42.7
[2021-02-27 02:13] VITALS: BP 103/66; PULSE 105; RESP 20; TEMP 37.2; O2SAT 96
--- NOTE | 2021-02-27 02:31 | RAD_ITS ---
STUDY: X-RAY CHEST REASON FOR EXAM: Male, 40 years old. dyspnea TECHNIQUE: Single AP portable view of the chest. COMPARISON: 02/14/2021. FINDINGS: The lungs are normally expanded with enlargement of the central vessels and airspace densities concerning for pulmonary edema. There is no demonstrated pleural abnormality. Normal size heart. Normal mediastinum and michael. Normal visualized pulmonary arteries. Normal visualized aortic arch and descending thoracic aorta. Normal visualized thoracic spine. Normal visualized ribs, clavicles, and shoulders. There is no demonstrated abnormality of the visualized soft tissue structures of the upper abdomen. RAD/Chest 1 View (Portable) IMPRESSION: Findings suggestive of congestive heart failure/pulmonary edema. Differential diagnosis includes bilateral perihilar infiltrates. Electronically Signed: Ivett Alvarez MD at 2:59 EDT , Service support ,
[2021-02-27 02:58] LABS: Absolute Lymphocyte Count 0.75 X10^3/uL (0.83-4.51); Absolute Neutrophil Count 4.2 X10^3/uL (2.0-7.7); Basophil# 0.02 X10^3/uL; Basophil% 0.3 % (0-1); Eosinophil# 0.07 X10^3/uL; Eosinophils% 1.2 % (0-5); Hemoglobin 9.6 g/dL (13.0-16.5); Lymphocyte # 0.75 X10^3/ul (0.83-4.51); Mean Corpuscular Hgb 30.6 pg (27.0-32.0); Mean Corpuscular Volume 98.7 fL (80-94); Mean Platelet Vol. 10.3 fl (6.2-12.0); Monocyte# 0.65 X10^3/uL; Monocyte% 11.2 % (0-10); NRBC Flagged by Analyzer 0 % (0-5); Neutrophil # 4.24 X10^3/uL (2.7-7.7); Neutrophil % 73.4 % (47-70); POSITIVE MORPHOLOGY YES; Platelet Count 214 K/mm3 (150-450); RBC Distribution Width CV 18.4 % (11.6-14.6); Red Blood Count 3.14 M/mm3 (4.6-6.2); White Blood Count 5.8 K/mm3 (4.4-11.0)
[2021-02-27 02:59] LABS: Differential Indicated SCAN CRITERIA MET
[2021-02-27 03:35] LABS: ALB/GLOB Ratio 0.6 RATIO (0.9-2.4); AST(SGOT) 18 U/L (15-37); Alanine Aminotransfer ALT/SGPT 30 U/L (16-61); Albumin, Serum 2.7 g/dL (3.2-5.0); Alkaline Phosphatase 79 U/L (45-117); Anion Gap 10 (5-15); BUN 40 mg/dL (7-18); BUN/Creat Ratio 4.4 RATIO (10-20); Calcium,Total 9.4 mg/dL (8.5-10.1); Chloride 95 mmol/L (98-107); Creatinine, Serum 9.11 mg/dL (0.70-1.30); EST Glomerular Filtration Rate 7 mL/min (>60); Est Glom Filt Rate - Afr Amer 8 mL/min (>60); Estimated Creatinine Clearance 11.35 ml/min; Globulin 4.8 g/dL (2.2-4.2); Glucose 124 mg/dL (74-106); Potassium 3.9 mmol/L (3.5-5.1); Protein, Total 7.5 g/dL (6.4-8.2); Sodium Level 136 mmol/L (136-145)
--- NOTE | 2021-02-27 03:57 | EDS_ITS ---
HPI History of Present Illness Chief Complaint: Shortness of Breath Informant: patient Narrative Narrative: 40-year-old dialysis patient states that he has been having shortness of breath since Friday (4 days). He was traveling around the formerly [facility]. He hoped that his dialysis treatment would relieve the dyspnea but it did not. He states that he went to work tonight and his temperature was 99.8 so with the temperature and his shortness of breath they wanted him evaluated. Patient has had Covid already. He has a history of atrial fibrillation. Heart cath in 2018 showed nonobstructive coronaries. He follows with Dr. Moreno. He is due to have dialysis tomorrow. Patient denies any cough or rhinorrhea. No sore throat or earache. He states that he has not had any diarrhea. No rashes. Patient had dialysis yesterday and was at his dry weight when he finished. 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) Central retinal artery occlusion of left eye (10/09/20) Chronic kidney disease-mineral and bone disorder Chronic pelvic pain in male COVID-19 virus detected (03/20/20) Dialysis patient ESRD on hemodialysis Essential (primary) hypertension Expressive aphasia (04/05/20) Hearing loss Hematuria History of bacterial endocarditis History of blood clots History of non-ST elevation myocardial infarction (NSTEMI) (11/08/19) History of pulmonary embolus (PE) History of venous thromboembolism 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 due to renal insufficiency 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 group home current use of 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 Mechanical complication of arteriovenous fistula surgically created Mitral valve annular calcification Morbidly obese Non compliance w medication regimen Non-healing non-surgical wound Nonrheumatic mitral valve stenosis with insufficiency Obstructive sleep apnea Paroxysmal atrial fibrillation (06/10/20) Paroxysmal atrial flutter 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) Pelvic mass Unspecified symptoms and signs involving cognitive functions and awareness (04/05/20) Home Medications ferric citrate 630 mg PO TIDCM 02/05/19 [History Last Taken 02/13/21] warfarin 7.5 mg PO DAILY 10/06/20 [History Last Taken 02/13/21] brimonidine 1 drp LEFT EYE TID #1 bottle 10/09/20 [Rx Last Taken 02/13/21] oxycodone 5 mg tablet 5 mg PO DAILY PRN 01/30/21 [History Last Taken 02/08/21] Nurtec ODT 75 mg PO X1 PRN #5 tab 02/12/21 [Rx Last Taken Unknown] amiodarone [Pacerone] 200 mg PO DAILY 02/12/21 [History Last Taken 02/13/21] acetaminophen 1,000 - 1,500 mg PO TID 02/14/21 [History Last Taken 02/12/21] midodrine 5 mg PO TID 02/14/21 [History Last Taken 02/13/21] cefdinir 300 mg PO Q12H #10 cap 02/17/21 [Rx Last Taken Unknown] Allergy/AdvReac Type Severity Reaction Status Date / Time No Known Allergies Allergy Verified 02/27/21 02:15 Family History Other Adopted Surgical History History of cardioversion (12/02/18) history of cather replacement History of herniorrhaphy History of left heart catheterization (09/17/18) History of repair of congenital cleft palate Mechanical complication of dialysis catheter Status post creation of arteriovenous fistula Social History Smoking Status: Never smoker alcohol intake: never substance use type: marijuana what type of physical activity do you participate in: none ROS ROS ED Constitutional Constitutional ED: Denies chills or weight loss Eyes Eyes: Denies change in vision or diplopia ENT ENT ED: Denies ear pain, rhinorrhea or sore throat Cardiovascular Cardiovascular: Denies chest pain, orthopnea, palpitations or racing heartbeat Respiratory/Chest Respiratory/Chest: Reports dyspnea and dyspnea on exertion; Denies cough or orthopnea Gastrointestinal Gastrointestinal: Denies abdominal pain, diarrhea, nausea or vomiting Genitourinary Genitourinary ED: Denies dysuria, hematuria or urinary frequency Musculoskeletal Musculoskeletal: Denies arthralgias or myalgias Integumentary Denies abscess or rash Neurologic Neurologic: Denies headache(s) or weakness Psychiatric Psychiatric: Denies anxiety, depression, suicidal ideation or suicidal thoughts Endocrine Endocrinology: Denies polydipsia, polyphagia or polyuria Allergic/Immunologic Allergic/Immunologic ED: Denies mouth swelling, tongue swelling or urticaria EXAM Physical Exam Narrative Exam Narrative: Patient is laying comfortably on the bed watching television. He is easily able to sit up Const Vital Signs: 02/27/21 02:08 02/27/21 02:13 02/27/21 02:14 Temperature 99 F 99 F Temperature Source Oral Oral Pulse Rate 105 H 105 H Respiratory Rate 20 H 20 H Respiratory Effort Short of Breath Respiratory Depth Normal Respiratory Pattern Tachypnea Blood Pressure 103/66 103/66 Blood Pressure Mean 78 78 Pulse Ox 96 96 Oxygen Delivery Method Room Air Room Air Oxygen Flow Rate (L/min) 02/27/21 04:07 02/27/21 05:23 Temperature 99.2 F H Temperature Source Temporal Pulse Rate 94 94 Respiratory Rate 18 16 Respiratory Effort Respiratory Depth Respiratory Pattern Blood Pressure 122/49 H 94/54 L Blood Pressure Mean 73 Pulse Ox 100 98 Oxygen Delivery Method Nasal Cannula Oxygen Flow Rate (L/min) 2 Positive well nourished, well developed and obese General Appearance ED: well developed Nutritional Appearance: obese HEENT Reports normocephalic, head/scalp atraumatic and moist mucous membranes Eyes PERRL and EOMs intact bilaterally Neck no lymphadenopathy, supple and no JVD Resp normal respiratory effort and clear to auscultation bilaterally Cardio regular rate, regular rhythm and no murmurs GI normal to inspection, nondistended, normoactive bowel sounds and non-tender Palpation: soft Back/Spine no CVA tenderness and normal ROM Extremity normal to inspection General Extremety ED: Negative for edema General Extremity: Negative for edema Neuro oriented x3 and CN's II-XII intact bilaterally Sensorium / Orientation: alert Motor Exam: strength 5/5 throughout Psych mental status grossly normal Mood & Affect: Negative for depressed or tearful Skin no rashes or lesions noted and no wounds MDM MDM MDM Narrative Medical decision making narrative: My interpretation of the patient's chest x- ray is mild pulmonary edema. It does not appear significantly changed from the chest x-ray on 14 Feb 2021. Patient's lung sounds are clear. He is laying in bed quite comfortable. I personally took his respirations and counted them at 16. He is laying flat. I do not think this represents overt heart failure. His troponin level tonight is 0.056. Patient has had elevations of his troponin I in the past. It was felt that his elevated troponins were not related to obstructive coronary artery disease. He last had stress testing 25 December 2020 was negative. I do not think this is represents ACS. I do not believe he is have an aortic dissection. He is therapeutic on his Coumadin and I do not think this represents pulmonary embolism. His heart rate is at his baseline. He is not having any chest pain or anginal equivalents other than dyspnea. And this is subjective. His lung sounds are clear. His pulse ox does not become hypoxic with ambulation. Patient does not know what to do with his shortness of breath but at this point I do not see a clear etiology for his symptoms. He is not febrile. Patient will be discharged instructions to follow-up with his doctors Lab Data Attestation: I reviewed the patient's lab results. Labs: Laboratory Results - last 24 hr 02/27/21 02/27/21 02/27/21 02:48 02:48 02:48 WBC 5.8 RBC 3.14 L Hgb 9.6 L Hct 31.0 L MCV 98.7 H MCH 30.6 MCHC 31.0 L RDW Std Deviation 67.0 H RDW Coeff of Lance 18.4 H Plt Count 214 MPV 10.3 Immature Gran % (Auto) 0.900 Neut % (Auto) 73.4 H Lymph % (Auto) 13.0 L [place] % (Auto) 11.2 H Eos % (Auto) 1.2 Baso % (Auto) 0.3 Absolute Neuts (auto) 4.2 Absolute Lymphs (auto) 0.75 L Nucleated RBC % 0 PT 25.7 H INR 2.4 Sodium 136 Potassium 3.9 Chloride 95 L Carbon Dioxide 31.0 Anion Gap 10 BUN 40 H Creatinine 9.11 H* Estim Creat Clear Calc 11.35 Est GFR (MDRD) Af Amer 8 L Est GFR (MDRD) Non-Af 7 L BUN/Creatinine Ratio 4.4 L Glucose 124 H Calcium 9.4 Total Bilirubin 0.60 AST 18 ALT 30 Alkaline Phosphatase 79 Troponin I 0.056 H Total Protein 7.5 Albumin 2.7 L Globulin 4.8 H Albumin/Globulin Ratio 0.6 L Radiography Diagnostic Testing: Radiology Impression Chest X-Ray 02/27/21 02:31 IMPRESSION: Findings suggestive of congestive heart failure/pulmonary edema. Differential diagnosis includes bilateral perihilar infiltrates. Electronically Signed: Ivett Alvarez MD at 2:59 EDT , Service support , EKG Initial EKG: Attestation: I personally reviewed and interpreted this EKG as follows: Comments: EKG demonstrates a normal sinus rhythm at a rate of 96. This appears grossly unchanged from EKG dated 12 Feb 2021. Discharge Plan Triage Chief Complaint: Shortness of Breath ED Provider: Maxi Villalba Dx/Rx/DC Orders Clinical Impression: ESRD on hemodialysis, Acute dyspnea Instructions: ED Dyspnea Prescriptions: No Action oxycodone 5 mg tablet 5 mg PO DAILY PRN (Reason: Pain) RF: 0 ferric citrate 210 MG tablet 630 mg PO TIDCM RF: 0 warfarin 5 MG tablet 7.5 mg PO DAILY RF: 0 brimonidine 1 DROP bottle 1 drp LEFT EYE TID Qty: 1 RF: 0 amiodarone [Pacerone] 200 mg tablet 200 mg PO DAILY RF: 0 Nurtec ODT 75 mg tablet,disintegrating 75 mg PO X1 PRN (Reason: migraine headache) Qty: 5 RF: 0 midodrine 5 mg tablet 5 mg PO TID RF: 0 acetaminophen 500 mg Capsule 1,000 - 1,500 mg PO TID RF: 0 cefdinir 300 mg capsule 300 mg PO Q12H Qty: 10 RF: 0 Primary Care Provider: Pawel Banda Referrals: Nnamdi Moreno MD [STAFF PHYSICIAN] - As soon as possible Pawel Banda MD [Primary Care Provider] - 3-5 Days if not improving Disposition Disposition: Home, self care Discharge Date/Time: 02/27/21 05:24
--- NOTE | 2021-02-27 04:01 | EKG12_ITS ---
Test Reason : SOB Blood Pressure : / mmHG Vent. Rate : 096 BPM Atrial Rate : 096 BPM P-R Int : 202 ms QRS Dur : 070 ms QT Int : 368 ms P-R-T Axes : 076 139 067 degrees QTc Int : 464 ms Normal sinus rhythm Anterior infarct , age undetermined, cannot be excluded Abnormal ECG Confirmed by ADALGISA STAHL, GOGO ([id number]), assistant editor MARGARITO CHANDLER ([id number]) on 02/28/2021 1:02:24 PM Referred By: MIRIAM Confirmed By:GOGO DIANA MD
[2021-02-27] MEDS: Acetaminophen 500 MG Tablet 1000 MG PO (04:03)
[2021-02-27 04:07] VITALS: BP 122/49; PULSE 94; RESP 18; TEMP 37.3; O2SAT 100
[2021-02-27 04:25] VITALS: O2SAT 98
[2021-02-27 04:52] LABS: International Normalized Ratio 2.4; Prothrombin Time (Protime)PT. 25.7 SECONDS (11.7-14.9)
[2021-02-27 05:23] VITALS: BP 94/54; PULSE 94; RESP 16; O2SAT 98
== END 2021-02-27 05:24 | disposition home or self-care (01) ==
PROVIDERS: Emergency Provider Emergency Medicine; PCP Internal Medicine
DX: N18.6 End stage renal disease (principal); R06.00 Dyspnea, unspecified; I48.0 Paroxysmal atrial fibrillation; I48.92 Unspecified atrial flutter; E66.9 Obesity, unspecified; Z99.2 Dependence on renal dialysis; Z79.01 Long term (current) use of 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s; Z79.899 Other long term (current) drug therapy
CPT/HCPCS: 36415; 71045; 80053; 84484; 85025; 85610; 87040; 87426; 87804; 93005; 99285; A4216

== ENCOUNTER 2021-02-27 10:07 | Outpatient (RCR) | payer MEDICARE, MEDICAID, SELFPAY ==
[2021-02-27 02:08] VITALS: BMI 42.7
[2021-02-27 11:08] LABS: International Normalized Ratio 2.3; Prothrombin Time (Protime)PT. 24.1 SECONDS (11.7-14.9)
== END 2021-02-27 18:00 ==
LOC: LAB 10:07
PROVIDERS: PCP Internal Medicine; Referring Provider Internal Medicine Cardiovascular Disease; Visit Provider Internal Medicine Cardiovascular Disease
DX: I48.0 Paroxysmal atrial fibrillation (principal); I48.92 Unspecified atrial flutter; Z79.01 Long term (current) use of 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s
CPT/HCPCS: 36415; 85610

== ENCOUNTER 2021-03-24 22:22 | Emergency (ER) | payer OTHER, MEDICARE, MEDICAID, SELFPAY ==
[2021-03-21 10:44] VITALS: BMI 42.7
[2021-03-24 22:23] VITALS: BP 105/70; PULSE 96; RESP 16; TEMP 36; O2SAT 97; BMI 42.7
--- NOTE | 2021-03-24 22:46 | RAD_ITS ---
STUDY: X-RAY - LUMBAR SPINE REASON FOR EXAM: Male, 41 years old. back pain TECHNIQUE: 3 view(s) of the lumbar spine were obtained. COMPARISON: CT abdomen and pelvis February 14, 2021. FINDINGS: Normal lumbar lordosis. Lumbar levoscoliosis. There is a normal alignment of the vertebrae. Normal vertebral bodies. Mild multilevel disc space narrowing with moderate disc space narrowing, endplate degenerative changes and marginal osteophyte L3-L4. The soft tissue structures are unremarkable. RAD/Lumbar Spine 2 or 3 Views IMPRESSION: Multilevel degenerative changes most prominent at L3-L4. Lumbar levoscoliosis. No significant change since January 2021. Electronically Signed: Parker Mcgee MD at 23:20 EDT , Service support ,
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
[2021-03-24] MEDS: Orphenadrine 100 MG Tablet PO (23:03)
[2021-03-25] MEDS: Morphine 4 MG/ML Syringe IM (00:09)
== END 2021-03-25 01:20 | disposition home or self-care (01) ==
LOC: ED 22:51
PROVIDERS: Emergency Provider Student in an Organized Health Care Education/Training Program; PCP Internal Medicine
DX: S39.012A Strain of muscle, fascia and tendon of lower back, initial encounter (principal); E66.9 Obesity, unspecified; F12.10 Cannabis abuse, uncomplicated; I25.2 Old myocardial infarction; N18.6 End stage renal disease; Z86.711 Personal history of pulmonary embolism; Z79.01 Long term (current) use of 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s; Z86.16 Personal history of COVID-19; Z99.2 Dependence on renal dialysis; Z79.899 Other long term (current) drug therapy; V89.2XXA Person injured in unspecified motor-vehicle accident, traffic, initial encounter
CPT/HCPCS: 72100; 96372; 99283

== ENCOUNTER 2021-03-28 08:30 | Outpatient (RCR) | payer MEDICARE, MEDICAID, SELFPAY ==
[2021-02-27 00:42] VITALS: BP 87/46; PULSE 102; RESP 20; TEMP 36.8
--- NOTE | 2021-03-14 08:06 | PCM.WC.PN ---
History of Present Illness Chief Complaint: follow up R lower Back wound History of Wound: 40 year old Black male in end stage renal on dialysis and has a primary Dr . He developed severe abd pain N V and fatigue to the point of unable to walk now .He usually works and walks. Extremely Obese and developed renal failure because of the hypertensive crisis 14 years ago. he is now chilling in the office but shows no temp The wound on his lower R back is in the fold of the skin and had been to 2 different Ed and they told him hi had shingles .They both put him on antibiotics . The wound is probably form clothing or something cutting into his skin and the wound appears clean and no erythema around him . He pulse ox well but is chilling and keeps holding his stomach .VS are stable ? covid or sepsis or both. Objective Data Objective Data Vital Signs: Vital Signs Temp Pulse Resp BP 98.2 F 102 H 20 H 87/46 L 02/27/21 00:42 02/27/21 00:42 02/27/21 00:42 02/27/21 00:42 Weight: 289 lb Body Mass Index (BMI) 40.1
--- NOTE | 2021-03-14 08:18 | PCM.WC.PN ---
History of Present Illness Chief Complaint: follow up R lower Back wound History of Wound: 40 year old Black male in end stage renal on dialysis and has a primary Dr . He developed severe abd pain N V and fatigue to the point of unable to walk now .He usually works and walks. Extremely Obese and developed renal failure because of the hypertensive crisis 14 years ago. he is now chilling in the office but shows no temp The wound on his lower R back is in the fold of the skin and had been to 2 different Ed and they told him hi had shingles .They both put him on antibiotics . The wound is probably form clothing or something cutting into his skin and the wound appears clean and no erythema around him . He pulse ox well but is chilling and keeps holding his stomach .VS are stable ? covid or sepsis or both. Objective Data Objective Data Vital Signs: Vital Signs Temp Pulse Resp BP 98.2 F 102 H 20 H 87/46 L 02/27/21 00:42 02/27/21 00:42 02/27/21 00:42 02/27/21 00:42 Weight: 289 lb Body Mass Index (BMI) 40.1 Physical Exam Const oriented x3 General Appearance: cooperative Exam Limitations: no limitations HEENT normocephalic Head and Scalp: normal to inspection Face and Sinus: normal facial exam Nose: external nose normal General Ear: hearing grossly impaired External Ear: external ears normal Mouth: oral and palatal mucosa normal Eyes PERRL General Eye: normal appearance of both eyes Neck full ROM General: normal visual inspection Resp normal respiratory effort Effort and Inspection: able to speak in complete sentences Auscultation: clear to auscultation bilaterally Cardio regular rate and regular rhythm Palpation: normal PMI Rate: regular rate Rhythm: regular rhythm GI Auscultation: normoactive bowel sounds Palpation: soft and no hepatosplenomegaly external exam normal Back/Spine Cervical Spine: cervical ROM normal Thoracic Spine / Upper Back: normal to inspection Lumbar Spine / Lower Back: normal to inspection Extremity normal to inspection General Extremity: normal exam except as noted Skin no rashes or lesions noted Neuro oriented x3 Psych Appearance: grossly normal Speech: normal speech Thought Content: normal thought content Judgement: judgement good
[2021-03-21 10:44] VITALS: BP 143/81; PULSE 101; TEMP 36.2; BMI 42.7
--- NOTE | 2021-03-21 12:42 | PN.PCM_ITS ---
History of Present Illness Date of Service: 03/21/21 Chief Complaint: follow up R lower Back wound History of Wound: 40 year old Black male in end stage renal on dialysis and has a primary Dr . He developed severe abd pain N V and fatigue to the point of unable to walk now .He usually works and walks. Extremely Obese and developed renal failure because of the hypertensive crisis 14 years ago. he is now chilling in the office but shows no temp The wound on his lower R back is in the fold of the skin and had been to 2 different Ed and they told him hi had shingles .They both put him on antibiotics . The wound is probably form clothing or something cutting into his skin and the wound appears clean and no erythema around him . He pulse ox well but is chilling and keeps holding his stomach .VS are stable ? covid or sepsis or both. Subjective Subjective Patient states it is causing him lots of pain Objective Data Objective Data The wound is pretty superficial and has not been seen in almost 3 weeks patient has had difficulty getting here or forgetting. Patient was preapproved for epi fix and never came back so is hard to explain to him what was going on patient was again explained and demonstrated with brochures about the epi fix and to explain how it works and patient was given the chance to either approve or not of using it patient did give approval and will try to use for the first week Vital Signs: Vital Signs Temp Pulse Resp BP 97.1 F L 101 H 20 H 143/81 H 03/21/21 10:44 03/21/21 10:44 02/27/21 00:42 03/21/21 10:44 Weight: 289 lb Body Mass Index (BMI) 42.7 Lab / Micro Data Attestation: I reviewed the patient's lab results. Physical Exam Const oriented x3 General Appearance: cooperative Exam Limitations: no limitations HEENT normocephalic Head and Scalp: normal to inspection Face and Sinus: normal facial exam Nose: external nose normal General Ear: hearing grossly impaired External Ear: external ears normal Mouth: oral and palatal mucosa normal Eyes PERRL General Eye: normal appearance of both eyes Neck full ROM General: normal visual inspection Resp normal respiratory effort Effort and Inspection: able to speak in complete sentences Auscultation: clear to auscultation bilaterally Cardio regular rate and regular rhythm Palpation: normal PMI Rate: regular rate Rhythm: regular rhythm GI Auscultation: normoactive bowel sounds Palpation: soft and no hepatosplenomegaly external exam normal Back/Spine Cervical Spine: cervical ROM normal Thoracic Spine / Upper Back: normal to inspection Lumbar Spine / Lower Back: normal to inspection Extremity normal to inspection General Extremity: normal exam except as noted Skin no rashes or lesions noted Neuro oriented x3 Psych Appearance: grossly normal Speech: normal speech Thought Content: normal thought content Judgement: judgement good Debridement Note Debridement Note Post-Debridement Measurements and Additional Note: Post-Debridement Measurements/Treatment WC - Nurse 1 - General Ulcer Assessment Start: 03/21/21 10:44 Freq: Status: Active Protocol: FAISAL Activity Type Activity Date Activity User E-Sign Co-Sign Detail Recorded Client Recorded Date Recorded By Document 03/21/21 10:44 KB [id number] 03/21/21 10:45 KB 03/21/21 10:44 GRISELDA - Today's Visit Information Type of service Follow-up Visit (Physician/PRESS TENDER STAR SIGNAL ) Arrival Mode Ambulatory Patient Identification Verified (Name & Yes ) Height and Weight Body Mass Index (BMI) 42.7 BMI Classification Obese Vital Signs Temperature (97.8 F-99.1 F) 97.1 F L Temperature Source Temporal Pulse Rate (60-100) 101 H Pulse Location Monitor Blood Pressure (90/60-120/80) 143/81 H Blood Pressure Mean (mm Hg) 101 Source Monitor Position Semi-Fowlers Blood Pressure Location Right Arm History Since Last Visit- (Skip if this is Patient's initial visit) Have you changed medications since your No last visit? Any new allergies or adverse reactions No Had a fall/change in ADL's that may No increase risk of falls Signs or symptoms of abuse and/or No neglect since last visit Have you been in the hospital since your No last visit? Has dressing in place as prescribed Yes Has compression in place as prescribed N/A Has offloadiing in place as prescribed N/A Experienced any changes in pain level or No management Left Footwear Regular Shoe Right Footwear Regular Shoe Pain Scale: 0-10 Numeric Is Patient Pain Free? Yes GRISELDA - Nurse 1 - General Ulcer Measurement Start: 03/21/21 10:44 Freq: Status: Active Protocol: Activity Type Activity Date Activity User E-Sign Co-Sign Detail Recorded Client Recorded Date Recorded By Document 03/21/21 10:44 KR [id number] 03/21/21 10:45 KR 03/21/21 10:44 Wound Center Nurse 1 #1 Right lower back -Current Size (cm) - Length 1.1 -Current Size (cm) - Width 2.7 -Current Size (cm) - Depth 0.1 -Total Square Cm 2.97 -Exudate Amt Small -Exudate Type Serosanguineous -Wound Margin Distinct, Outline Attached -Granulation Amt Medium (34-66%) -Granulation Quality Red -Necrosis Amt Medium (34-66%) -Necrotic Tissue Type Adherent Slough -Texture (Skye-wound Skin Appearance) Assessed, Scarring -Moisture (Skye-wound Skin Appearance) No Abnormality, Assessed -Color (Skye-wound Skin Appearance) No Abnormality, Assessed -Temperature (Skye-wound Skin No Abnormality Appearance) (Pt Warm) -Tenderness on Palpation (Skye-wound No Skin Appearance) -Ulcer Cleansing Rinsed/ Irrigated with Saline -Foul Odor after Cleansing No -Anesthetic Used 5% Lidocaine Gel WC - Nurse 2 - General Ulcer CM Notes Start: 03/21/21 10:44 Freq: Status: Active Protocol: Activity Type Activity Date Activity User E-Sign Co-Sign Detail Recorded Client Recorded Date Recorded By Document 03/21/21 10:56 MW [id number] 03/21/21 11:12 MW 03/21/21 10:56 Wound Center Nurse 2 -Time 10:56 -Correct Patient Yes -Correct Side, Site, Position Yes -Correct Procedure Yes -Procedure Performed Yes -Type of Procedure Debridement -Clinical Debridement Subcutaneous -Tissue Removed Subcutaneous -Post Debridement (cm) - Length 1.0 -Post Debridement (cm) - Width 3.5 -Post Debridement (cm) - Depth 0.1 -Total Square (Post) (cm) 3.50 -Area of Debridement (cm) - Length 1.0 -Area of Debridement (cm) - Width 3.5 -Total Square (Area) (cm) 3.50 -Tunneling No -Undermining/Tunneling No -Circular Undermining No -Wound/Ulcer Outcome Not Healed -Ulcer Cleansing Wound Cleanser -Foul Odor after Cleansing No -Bioengineered Tissue Yes -Type of Bioengineered Tissue Epifix -Expiration Date 10/30/25 -Product Lot Number [id number] -Percent Used 100 -Lot number of Saline Used [id number] -Bleeding Controlled with Pressure -Offloading No -Treatment Response Procedure Tolerated Well -Debridement - Subq, 1st 20sq cm No -Epifix (per sq cm) 3 Pain Scale: 0-10 Numeric Is Patient Pain Free? Yes - Nurse 3 - General Ulcer D/C NN Start: 03/21/21 10:44 Freq: Status: Active Protocol: Activity Type Activity Date Activity User E-Sign Co-Sign Detail Recorded Client Recorded Date Recorded By Document 03/21/21 11:59 MW [id number] 03/21/21 11:59 MW 03/21/21 11:59 Wound Care Nurse 3 #1 Right lower back -Ulcer Cleansing Not Cleansed -Foul Odor after Cleansing No -Negative Pressure Wound Therapy N/A -Primary Dressing Applied Aquacel Extra, Mepilex Border -Aquacel Extra 1 -Mepilex Border 1 Treatment Response Procedure Tolerated Well Pain Scale: 0-10 Numeric Is Patient Pain Free? Yes Teaching: Wound Center Dressing Your Wound -Person Taught Patient -Teaching Method Discussion, Demonstration -Response to teaching Verbalize understanding WC - Visit Discharge Discharge Condition Stable Ambulatory Status Ambulatory Transportation Private Auto Accompanied by self Medication Reconcilliation completed & No provided to patient/care provider Clinical Summary of Care Provided Yes Wound debrided: Right lower back Type of Debridement: Excisional debridement Anesthesia Used: 5% Lidocaine Gel Depth: Down to and including healthy tissue and in the subcutaneous layer Percentage of wound debrided: 100 Instrument Used: 7mm curette Tissue Removed: Fibrin Severity: Limited To Skin Breakdown Amount of bleeding with debridement: Mild Bleeding Controlled with: Pressure Patient tolerated procedure: Patient tolerated procedure well Assessment/Plan Assessment/Plan (1) Non-healing non-surgical wound: CODE(S): T14.8XXA - Other injury of unspecified body region, initial encounter PLAN: 1. 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
[2021-03-28 10:35] VITALS: BP 113/64; PULSE 92; TEMP 36.1; BMI 42.7
--- NOTE | 2021-03-28 12:14 | PN.PCM_ITS ---
History of Present Illness Date of Service: 03/28/21 Chief Complaint: follow up R lower Back wound Objective Data Objective Data Vital Signs: Vital Signs Temp Pulse Resp BP 97.0 F L 92 20 H 113/64 03/28/21 10:35 03/28/21 10:35 02/27/21 00:42 03/28/21 10:35 Weight: 289 lb Body Mass Index (BMI) 42.7 Debridement Note Debridement Note Post-Debridement Measurements and Additional Note: Post-Debridement Measurements/Treatment WC - Nurse 1 - General Ulcer Assessment Start: 03/21/21 10:44 Freq: Status: Active Protocol: LOWEXRolan Activity Type Activity Date Activity User E-Sign Co-Sign Detail Recorded Client Recorded Date Recorded By Document 03/21/21 10:44 KR [id number] 03/21/21 10:45 KR Document 03/28/21 10:35 KR [id number] 03/28/21 10:36 KR 03/21/21 03/28/21 10:44 10:35 WC - Today's Visit Information Type of service Follow-up Visit Follow-up Visit (Physician/BELT BUCKLE MAKER (Physician/BELT BUCKLE MAKER ) ) Arrival Mode Ambulatory Ambulatory Patient Identification Verified (Name & Yes Yes ) Height and Weight Body Mass Index (BMI) 42.7 42.7 BMI Classification Obese Obese Vital Signs Temperature (97.8 F-99.1 F) 97.1 F L 97.0 F L Temperature Source Temporal Oral Pulse Rate (60-100) 101 H 92 Pulse Location Monitor Monitor Blood Pressure (90/60-120/80) 143/81 H 113/64 Blood Pressure Mean (mm Hg) 101 80 Source Monitor Monitor Position Semi-Fowlers Semi-Fowlers Blood Pressure Location Right Arm Right Arm History Since Last Visit- (Skip if this is Patient's initial visit) Have you changed medications since your No No last visit? Any new allergies or adverse reactions No No Had a fall/change in ADL's that may No No increase risk of falls Signs or symptoms of abuse and/or No No neglect since last visit Have you been in the hospital since your No No last visit? Has dressing in place as prescribed Yes Yes Has compression in place as prescribed N/A N/A Has offloadiing in place as prescribed N/A N/A Experienced any changes in pain level or No No management Left Footwear Regular Shoe Regular Shoe Right Footwear Regular Shoe Regular Shoe Pain Scale: 0-10 Numeric Is Patient Pain Free? Yes Yes WC - Nurse 1 - General Ulcer Measurement Start: 03/21/21 10:44 Freq: Status: Active Protocol: Activity Type Activity Date Activity User E-Sign Co-Sign Detail Recorded Client Recorded Date Recorded By Document 03/21/21 10:44 KR [id number] 03/21/21 10:45 KR Document 03/28/21 10:35 KR [id number] 03/28/21 10:36 KR 03/21/21 03/28/21 10:44 10:35 Wound Center Nurse 1 #2 right lower back -Current Size (cm) - Length 1.1 1 -Current Size (cm) - Width 2.7 3.2 -Current Size (cm) - Depth 0.1 0.1 -Total Square Cm 2.97 3.2 -Exudate Amt Small Medium -Exudate Type Serosanguineous Serosanguineous -Wound Margin Distinct, Distinct, Outline Outline Attached Attached -Granulation Amt Medium (34-66%) Medium (34-66%) -Granulation Quality Red Red -Necrosis Amt Medium (34-66%) Medium (34-66%) -Necrotic Tissue Type Adherent Slough Adherent Slough -Texture (Skye-wound Skin Appearance) Assessed, Assessed, Scarring Scarring -Moisture (Skye-wound Skin Appearance) No Abnormality, No Abnormality, Assessed Assessed -Color (Skye-wound Skin Appearance) No Abnormality, No Abnormality, Assessed Assessed -Temperature (Skye-wound Skin No Abnormality No Abnormality Appearance) (Pt Warm) (Pt Warm) -Tenderness on Palpation (Skye-wound No No Skin Appearance) -Ulcer Cleansing Rinsed/ Rinsed/ Irrigated with Irrigated with Saline Saline -Foul Odor after Cleansing No No -Anesthetic Used 5% Lidocaine 5% Lidocaine Gel Gel WC - Nurse 2 - General Ulcer CM Notes Start: 03/21/21 10:44 Freq: Status: Active Protocol: Activity Type Activity Date Activity User E-Sign Co-Sign Detail Recorded Client Recorded Date Recorded By Document 03/21/21 10:56 MW [id number] 03/21/21 11:12 MW Edit Result 03/21/21 10:56 MW (1) [id number] 03/22/21 07:19 PL Edit Result 03/21/21 10:56 MW (2) [id number] 03/22/21 07:49 PL (1) #2 right lower back - Epifix (per sq cm) 3 => 4 (2) #2 right lower back - Apply Skin Sub - 1st 25 sq cm - Legs => 1 03/21/21 10:56 Wound Center Nurse 2 -Time 10:56 -Correct Patient Yes -Correct Side, Site, Position Yes -Correct Procedure Yes -Procedure Performed Yes -Type of Procedure Debridement -Clinical Debridement Subcutaneous -Tissue Removed Subcutaneous -Post Debridement (cm) - Length 1.0 -Post Debridement (cm) - Width 3.5 -Post Debridement (cm) - Depth 0.1 -Total Square (Post) (cm) 3.50 -Area of Debridement (cm) - Length 1.0 -Area of Debridement (cm) - Width 3.5 -Total Square (Area) (cm) 3.50 -Tunneling No -Undermining/Tunneling No -Circular Undermining No -Wound/Ulcer Outcome Not Healed -Ulcer Cleansing Wound Cleanser -Foul Odor after Cleansing No -Bioengineered Tissue Yes -Type of Bioengineered Tissue Epifix -Expiration Date 10/30/25 -Product Lot Number [id number] -Percent Used 100 -Lot number of Saline Used [id number] -Bleeding Controlled with Pressure -Offloading No -Treatment Response Procedure Tolerated Well -Debridement - Subq, 1st 20sq cm No -Apply Skin Sub - 1st 25 sq cm - Legs 1 -Epifix (per sq cm) 4 Pain Scale: 0-10 Numeric Is Patient Pain Free? Yes WC - Nurse 3 - General Ulcer D/C NN Start: 03/21/21 10:44 Freq: Status: Active Protocol: Activity Type Activity Date Activity User E-Sign Co-Sign Detail Recorded Client Recorded Date Recorded By Document 03/21/21 11:59 MW [id number] 03/21/21 11:59 MW 03/21/21 11:59 Wound Care Nurse 3 #2 right lower back -Ulcer Cleansing Not Cleansed -Foul Odor after Cleansing No -Negative Pressure Wound Therapy N/A -Primary Dressing Applied Aquacel Extra, Mepilex Border -Aquacel Extra 1 -Mepilex Border 1 Treatment Response Procedure Tolerated Well Pain Scale: 0-10 Numeric Is Patient Pain Free? Yes Teaching: Wound Center Dressing Your Wound -Person Taught Patient -Teaching Method Discussion, Demonstration -Response to teaching Verbalize understanding WC - Visit Discharge Discharge Condition Stable Ambulatory Status Ambulatory Transportation Private Auto Accompanied by self Medication Reconcilliation completed & No provided to patient/care provider Clinical Summary of Care Provided Yes
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
== END 2021-03-28 23:59 ==
LOC: WC 08:30
PROVIDERS: PCP Internal Medicine; Visit Provider Nurse Practitioner
DX: S31.000A Unspecified open wound of lower back and pelvis without penetration into retroperitoneum, initial encounter (principal); X58.XXXA Exposure to other specified factors, initial encounter; E66.01 Morbid (severe) obesity due to excess calories; Z99.2 Dependence on renal dialysis; I12.0 Hypertensive chronic kidney disease with stage 5 chronic kidney disease or end stage renal disease; N18.6 End stage renal disease; Z68.41 Body mass index [BMI] 40.0-44.9, adult; D63.8 Anemia in other chronic diseases classified elsewhere
CPT/HCPCS: 15271; 15275; 99213; Q4186; G0463

== ENCOUNTER 2021-04-04 11:02 | Emergency (ER) | payer MEDICARE, MEDICAID, SELFPAY ==
[2021-04-04] VITALS (7 sets, daily range): BP systolic 94–132; BP diastolic 45–99; PULSE 81–87; RESP 14–18; TEMP 36.5; O2SAT 96–99; BMI 42.8
--- NOTE | 2021-04-04 11:25 | RAD_ITS ---
STUDY: X-RAY CHEST REASON FOR EXAM: Male, 41 years old. Chest pain TECHNIQUE: Single AP portable view of the chest. COMPARISON: Comparison is made with prior study dated 02/27/2021. FINDINGS: EKG electrodes are seen. Increased pulmonary vascular markings suggestive of mild CHF. There is no demonstrated pleural abnormality. There is mild cardiac enlargement. Normal mediastinum and michael. Normal visualized pulmonary arteries. Normal visualized aortic arch and descending thoracic aorta. Normal visualized thoracic spine. Normal visualized ribs, clavicles, and shoulders. There is no demonstrated abnormality of the visualized soft tissue structures of the upper abdomen. RAD/Chest 1 View (Portable) IMPRESSION: Cardiomegaly and mild CHF. Electronically Signed: Ed Vega MD at 12:18 EDT , Service support ,
--- NOTE | 2021-04-04 11:25 | EKG12_ITS ---
Test Reason : CP Blood Pressure : / mmHG Vent. Rate : 084 BPM Atrial Rate : 084 BPM P-R Int : 206 ms QRS Dur : 076 ms QT Int : 408 ms P-R-T Axes : 078 137 050 degrees QTc Int : 482 ms Normal sinus rhythm Right axis deviation Anterior infarct , age undetermined Abnormal ECG Confirmed by SALMA STAHL, JACOBY ([id number]), manager editorial MARGARITO CHANDLER ([id number]) on 04/09/2021 12:51:45 PM Referred By: ARABELLA/RONAK Confirmed By:JACOBY MARSH MD
[2021-04-04 11:41] LABS: Absolute Lymphocyte Count 0.76 X10^3/uL (0.83-4.51); Absolute Neutrophil Count 2.6 X10^3/uL (2.0-7.7); Basophil# 0.02 X10^3/uL; Basophil% 0.5 % (0-1); Eosinophil# 0.15 X10^3/uL; Eosinophils% 3.5 % (0-5); Hematocrit 34.6 % (40-54); Hemoglobin 10.7 g/dL (13.0-16.5); Lymphocyte # 0.76 X10^3/ul (0.83-4.51); Lymphocyte % 17.9 % (19-41); Mean Corp Hgb Conc 30.9 g/dL (32-36); Mean Corpuscular Hgb 29.6 pg (27.0-32.0); Mean Corpuscular Volume 95.8 fL (80-94); Monocyte# 0.64 X10^3/uL; Monocyte% 15.1 % (0-10); NRBC Flagged by Analyzer 0 % (0-5); Neutrophil # 2.63 X10^3/uL (2.7-7.7); Neutrophil % 61.8 % (47-70); POSITIVE MORPHOLOGY YES; Platelet Count 200 K/mm3 (150-450); RBC Distribution Width CV 18.6 % (11.6-14.6); RBC Distribution Width SD 65.5 fl (35.1-43.9); Red Blood Count 3.61 M/mm3 (4.6-6.2); White Blood Count 4.3 K/mm3 (4.4-11.0)
[2021-04-04] MEDS: Aspirin 81 MG TAB.CHEW 324 MG PO (11:42)
[2021-04-04 11:43] LABS: Differential Indicated SCAN CRITERIA MET
--- NOTE | 2021-04-04 11:50 | CT_ITS ---
STUDY: CTA CHEST REASON FOR EXAM: Male, 41 years old. Chest pain. Hemodialysis patient. Hypertension. RADIATION DOSAGE (If Supplied By Facility): CTDIvol = ( 24.27 ) mGy, DLP = ( 598.33 ) mGycm TECHNIQUE: The examination was performed with the intravenous administration of IV 100mL Isovue-370. Post-processing of the angiographic images was performed, with multiplanar reformation and 3D reconstruction. Individualized dose optimization techniques were used for this CT. COMPARISON: Comparison is made with prior study dated 06/10/2020. FINDINGS: There is limited evaluation of the pulmonary arterial system due to lack of contrast material. Normal thoracic aorta and visualized great vessels. There is no demonstrated aortic dissection. There are calcifications of the coronary arteries. Calcification of the mitral valve annulus. There are visualized mediastinal lymph nodes, which are within normal size limits, and with normal morphology. Normal hilar regions. Normal visualized trachea and bronchi. The lungs are well expanded. Stable 1.5 cm pleural-based nodule in the posterior medial segment of the left lower lobe. Normal pleura. Normal chest wall structures. Dextroscoliosis. There is evidence of a multiple venous collaterals overlying the anterior abdominal wall as well as the right side of the abdominal wall suggestive of varicosities. CT/CTA Chest W/WO Contrast IMPRESSION: Limited evaluation of the pulmonary arterial system due to lack of contrast filling. There is evidence of diffuse collateral venous circulation in the subcutaneous tissues overlying the anterior thoracic and abdominal wall and right lateral thorax. Electronically Signed: Ed Vega MD at 12:30 EDT , Service support ,
[2021-04-04 12:00] LABS: Anion Gap 11 (5-15); BUN 27 mg/dL (7-18); BUN/Creat Ratio 3.8 RATIO (10-20); Chloride 93 mmol/L (98-107); Creatinine, Serum 7.09 mg/dL (0.70-1.30); EST Glomerular Filtration Rate 9 mL/min (>60); Est Glom Filt Rate - Afr Amer 11 mL/min (>60); Estimated Creatinine Clearance 14.44 ml/min; Glucose 77 mg/dL (74-106); Potassium 3.9 mmol/L (3.5-5.1); Sodium Level 136 mmol/L (136-145); Troponin-I HS 16.8 pg/mL (3.0-78.5)
[2021-04-04 12:07] LABS: Hypochromasia 1+; Platelet Estimate ADEQUATE (ADEQ)
--- NOTE | 2021-04-04 12:56 | EDS_ITS ---
HPI History of Present Illness Chief Complaint: Chest Pain Informant: patient Onset/Context/Timing Onset: Today Activity at onset: sudden Timing: Continuous Quality: Positive for Sharp Location: Left Chest Worsened By: Breathing Relieved By: Nothing Associated Symptoms: Positive for Dyspnea and Lightheadedness; Negative for Nausea, Vomiting, Diaphoresis, Cough, Fever, Acid Reflux and Palpitations Narrative Narrative: Patient presents with chest pain that began today while he was at dialysis. Patient states the pain is over the left chest. Patient denies any radiation of the pain. Patient describes the pain as sharp. Patient states he is concerned that this could be from a blood clot. Patient states his pain is worse with deep breathing. Patient also admits to some lightheadedness. Patient denies any nausea or vomiting. Patient denies any diaphoresis. 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) Central retinal artery occlusion of left eye (10/09/20) Chronic kidney disease-mineral and bone disorder Chronic pelvic pain in male COVID-19 virus detected (03/20/20) Dialysis patient ESRD on hemodialysis Essential (primary) hypertension Expressive aphasia (04/05/20) Hearing loss Hematuria History of bacterial endocarditis History of blood clots History of non-ST elevation myocardial infarction (NSTEMI) (11/08/19) History of pulmonary embolus (PE) History of venous thromboembolism 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 due to renal insufficiency 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 Mechanical complication of arteriovenous fistula surgically created Mitral valve annular calcification Morbidly obese Non compliance w medication regimen Non-healing non-surgical wound Nonrheumatic mitral valve stenosis with insufficiency Obstructive sleep apnea Paroxysmal atrial fibrillation (06/10/20) Paroxysmal atrial flutter 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) Pelvic mass Unspecified symptoms and signs involving cognitive functions and awareness (04/05/20) Home Medications warfarin 7.5 mg PO DAILY 10/06/20 [History Last Taken 02/13/21] brimonidine 1 drp LEFT EYE TID #1 bottle 10/09/20 [Rx Last Taken 02/13/21] acetaminophen 1,000 - 1,500 mg PO TID 02/14/21 [History Last Taken 02/12/21] amiodarone 200 mg tablet 200 mg PO DAILY #30 tab 03/29/21 [Rx Last Taken Unknown] midodrine 5 mg tablet 5 mg PO TID #90 tab 03/29/21 [Rx Last Taken Unknown] oxycodone 5 mg PO DAILY 04/04/21 [History Last Taken Unknown] sucroferric oxyhydroxide 1,000 mg PO BID 04/04/21 [History Last Taken Unknown] Allergy/AdvReac Type Severity Reaction Status Date / Time No Known Allergies Allergy Verified 04/04/21 11:04 Family History Other Adopted Surgical History History of cardioversion (12/02/18) history of cather replacement History of herniorrhaphy History of left heart catheterization (09/17/18) History of repair of congenital cleft palate Mechanical complication of dialysis catheter Status post creation of arteriovenous fistula Social History Smoking Status: Never smoker alcohol intake: never substance use type: marijuana what type of physical activity do you participate in: none ROS ROS ED Constitutional Constitutional ED: Denies chills or fever(s) Eyes Eyes: Denies blurry vision or change in vision ENT ENT ED: Denies rhinorrhea or sore throat Cardiovascular Cardiovascular: Reports chest pain; Denies palpitations Respiratory/Chest Respiratory/Chest: Reports dyspnea; Denies cough Gastrointestinal Gastrointestinal: Denies abdominal pain, nausea or vomiting Genitourinary Genitourinary ED: Denies dysuria or hematuria Musculoskeletal Musculoskeletal: Denies back pain or neck pain Integumentary Denies abscess or rash Neurologic Neurologic: Denies headache(s) or weakness Allergic/Immunologic Allergic/Immunologic ED: Denies mouth swelling or urticaria EXAM Physical Exam Const Vital Signs: 04/04/21 11:05 04/04/21 11:10 04/04/21 11:22 Temperature 97.7 F L 97.7 F L Temperature Source Oral Oral Pulse Rate 81 85 85 Respiratory Rate 17 14 14 Respiratory Effort Normal Non-Labored Respiratory Pattern Normal Blood Pressure 101/63 94/45 L 94/45 L Blood Pressure Mean 75 61 61 Pulse Ox 99 99 Oxygen Delivery Method Room Air Room Air Room Air 04/04/21 11:39 04/04/21 12:03 Temperature Temperature Source Pulse Rate Respiratory Rate 16 Respiratory Effort Respiratory Pattern Blood Pressure Blood Pressure Mean Pulse Ox 96 Oxygen Delivery Method Room Air Positive well nourished, well developed and obese General Appearance ED: well developed Nutritional Appearance: obese HEENT normocephalic and atraumatic Eyes PERRL and EOMs intact bilaterally Neck supple and no JVD Chest Wall palpation of chest normal Resp normal respiratory effort and clear to auscultation bilaterally Effort and Inspection: Negative for respiratory distress Cardio regular rate, regular rhythm and no murmurs GI normal to inspection, nondistended, normoactive bowel sounds, soft to palpation, non-tender and non-distended Extremity normal to inspection General Extremety ED: Negative for edema or tenderness General Extremity: Negative for edema Neuro oriented x3, CN's II-XII intact bilaterally and no sensory deficits noted Sensorium / Orientation: awake and alert Motor Exam: strength 5/5 throughout Psych mental status grossly normal Heart Score History: Slightly/Non-Suspicious ECG: Normal Age: </= 45 years Risk Factors: 1 or 2 Risk Factors Troponin: </= Normal Limit Score: 1 MDM MDM MDM Narrative Medical decision making narrative: EKG was obtained. On my interpretation, it showed a normal sinus rhythm with a rate of 84. SC interval, QRS interval, and QTc intervals were all normal. There is right axis deviation. There are no acute ST or T wave changes. Portable chest x-ray was obtained. There is 1 view. On my interpretation there is mild congestive heart failure. There is cardiomegaly. There is no other acute cardiopulmonary process. CBC shows a mild anemia with a hemoglobin of 10.7 hematocrit 34.6. Basic metabolic profile was obtained. BUN was 27 and creatinine was 7.09. High-sensitivity troponin was normal at 16.8. CTA of the chest was obtained. There is no evidence of pulmonary embolism. Patient has a HEART score of 1. Patient was advised that this is low risk for acute cardiac event. 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 Patient understood and was agreeable with the plan. All questions were answered. Lab Data Attestation: I reviewed the patient's lab results. Labs: Laboratory Results - last 24 hr 04/04/21 04/04/21 11:36 11:36 WBC 4.3 L RBC 3.61 L Hgb 10.7 L Hct 34.6 L MCV 95.8 H MCH 29.6 MCHC 30.9 L RDW Std Deviation 65.5 H RDW Coeff of Lance 18.6 H Plt Count 200 MPV 10.0 Immature Gran % (Auto) 1.200 H Neut % (Auto) 61.8 Lymph % (Auto) 17.9 L Woodward % (Auto) 15.1 H Eos % (Auto) 3.5 Baso % (Auto) 0.5 Absolute Neuts (auto) 2.6 Absolute Lymphs (auto) 0.76 L Nucleated RBC % 0 Platelet Estimate ADEQUATE Hypochromasia 1+ Sodium 136 Potassium 3.9 Chloride 93 L Carbon Dioxide 32.0 Anion Gap 11 BUN 27 H Creatinine 7.09 H Estim Creat Clear Calc 14.44 Est GFR (MDRD) Af Amer 11 L Est GFR (MDRD) Non-Af 9 L BUN/Creatinine Ratio 3.8 L Glucose 77 Calcium 9.0 Troponin I High Sens 16.8 Radiography Diagnostic Testing: Radiology Impression Chest X-Ray 04/04/21 11:25 IMPRESSION: Cardiomegaly and mild CHF. Electronically Signed: Ed Vega MD at 12:18 EDT , Service support , Chest CTA 04/04/21 11:50 IMPRESSION: Limited evaluation of the pulmonary arterial system due to lack of contrast filling. There is evidence of diffuse collateral venous circulation in the subcutaneous tissues overlying the anterior thoracic and abdominal wall and right lateral thorax. Electronically Signed: Ed Vega MD at 12:30 EDT , Service support , EKG Initial EKG: Attestation: I personally reviewed and interpreted this EKG as follows: Interpretation: Sinus Rhythm (84) and No Acute Injury Pattern Comments: Right axis deviation Prior EKG tracings: available for review Prior: Unchanged (02/27/2021) Discharge Plan Triage Chief Complaint: Chest Pain ED Provider: Piero Marques Dx/Rx/DC Orders Clinical Impression: Chest pain Instructions: ED Chest Pain, Uncertain Cause Prescriptions: No Action warfarin 5 MG tablet 7.5 mg PO DAILY RF: 0 brimonidine 1 DROP bottle 1 drp LEFT EYE TID Qty: 1 RF: 0 acetaminophen 500 mg Capsule 1,000 - 1,500 mg PO TID RF: 0 oxycodone 5 mg Capsule 5 mg PO DAILY RF: 0 sucroferric oxyhydroxide 500 mg Tablet,Chewable 1,000 mg PO BID RF: 0 amiodarone [Pacerone] 200 mg tablet 200 mg PO DAILY Qty: 30 RF: 3 midodrine 5 mg tablet 5 mg PO TID Qty: 90 RF: 3 Primary Care Provider: Pawel Banda Referrals: Pawel Banda MD [Primary Care Provider] - 3-5 Days Disposition Disposition: Home, Self Care
== END 2021-04-04 13:21 | disposition home or self-care (01) ==
PROVIDERS: Emergency Provider Emergency Medicine; PCP Internal Medicine
DX: R07.9 Chest pain, unspecified (principal); E66.9 Obesity, unspecified; I48.0 Paroxysmal atrial fibrillation; I48.92 Unspecified atrial flutter; Z79.01 Long term (current) use of 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s; Z86.16 Personal history of COVID-19; Z99.2 Dependence on renal dialysis
CPT/HCPCS: 36416; 71045; 71275; 80048; 84484; 85025; 85610; 93005; 99285; Q9967; A4216

== ENCOUNTER 2021-04-04 15:08 | Outpatient (RCR) | payer MEDICARE, MEDICAID, SELFPAY ==
[2021-04-04 11:05] VITALS: BMI 42.8
[2021-04-04 16:16] LABS: INR Fingerstick 1.5; Prothrombin Time Fingerstick 17.3 SEC (11.9-14.4)
== END 2021-04-04 18:00 | disposition home or self-care (01) ==
LOC: LAB 15:08
PROVIDERS: PCP Internal Medicine; Referring Provider Internal Medicine Cardiovascular Disease; Visit Provider Internal Medicine Cardiovascular Disease
DX: I48.0 Paroxysmal atrial fibrillation (principal); I48.92 Unspecified atrial flutter; Z79.01 Long term (current) use of 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s
CPT/HCPCS: 36415; 36416; 85610

== ENCOUNTER 2021-04-19 23:42 | Emergency (ER) | payer MEDICARE, MEDICAID, SELFPAY ==
[2021-04-18 08:23] VITALS: BMI 42.8
[2021-04-19 23:43] VITALS: BP 101/38; PULSE 54; RESP 16; TEMP 36.7; O2SAT 100; BMI 40.1
--- NOTE | 2021-04-20 00:01 | EDS_ITS ---
HPI History of Present Illness Chief Complaint: Male Pain/Injury Narrative Narrative: Patient presenting with testicular chafing. He states this is a chronic issue however today he states that he was wiping the area and noticed that there was some blood and some clots on the toilet paper. He denies any rectal bleeding. Patient states somewhat irritated in this area currently. He denies fever, chills. He denies dysuria. He denies testicular pain. 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) Central retinal artery occlusion of left eye (10/09/20) Chronic kidney disease-mineral and bone disorder Chronic pelvic pain in male COVID-19 virus detected (03/20/20) Dialysis patient ESRD on hemodialysis Essential (primary) hypertension Expressive aphasia (04/05/20) Hearing loss Hematuria History of bacterial endocarditis History of blood clots History of non-ST elevation myocardial infarction (NSTEMI) (11/08/19) History of pulmonary embolus (PE) History of venous thromboembolism 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 due to renal insufficiency 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 skilled nursing current use of 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 Mechanical complication of arteriovenous fistula surgically created Mitral valve annular calcification Morbidly obese Non compliance w medication regimen Non-healing non-surgical wound Nonrheumatic mitral valve stenosis with insufficiency Obstructive sleep apnea Paroxysmal atrial fibrillation (06/10/20) Paroxysmal atrial flutter 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) Pelvic mass Unspecified symptoms and signs involving cognitive functions and awareness (04/05/20) Home Medications warfarin 7.5 mg PO DAILY 10/06/20 [History Last Taken 02/13/21] brimonidine 1 drp LEFT EYE TID #1 bottle 10/09/20 [Rx Last Taken 02/13/21] acetaminophen 1,000 - 1,500 mg PO TID 02/14/21 [History Last Taken 02/12/21] amiodarone 200 mg tablet 200 mg PO DAILY #30 tab 03/29/21 [Rx Last Taken Unknown] midodrine 5 mg tablet 5 mg PO TID #90 tab 03/29/21 [Rx Last Taken Unknown] oxycodone 5 mg PO DAILY 04/04/21 [History Last Taken Unknown] sucroferric oxyhydroxide 1,000 mg PO BID 04/04/21 [History Last Taken Unknown] Allergy/AdvReac Type Severity Reaction Status Date / Time No Known Allergies Allergy Verified 04/19/21 23:43 Family History Other Adopted Surgical History History of cardioversion (12/02/18) history of cather replacement History of herniorrhaphy History of left heart catheterization (09/17/18) History of repair of congenital cleft palate Mechanical complication of dialysis catheter Status post creation of arteriovenous fistula Social History Smoking Status: Never smoker alcohol intake: never substance use type: marijuana what type of physical activity do you participate in: none ROS ROS ED Constitutional Constitutional ED: Denies chills or fever(s) Eyes Eyes: Denies blurry vision or change in vision ENT ENT ED: Denies rhinorrhea or sore throat Cardiovascular Cardiovascular: Denies chest pain or palpitations Respiratory/Chest Respiratory/Chest: Denies cough, dyspnea or sputum Gastrointestinal Gastrointestinal: Denies abdominal pain, diarrhea, nausea or vomiting Genitourinary Genitourinary ED: Denies dysuria or hematuria Musculoskeletal Musculoskeletal: Denies arthralgias or myalgias Integumentary Reports rash and other Details: Scrotal rash on the posterior scrotum ; Denies abscess Neurologic Neurologic: Denies headache(s) or paresthesias Psychiatric Psychiatric: Denies anxiety or depression Endocrine Endocrinology: Denies polydipsia or polyuria EXAM Physical Exam Const Vital Signs: 04/19/21 23:43 Temperature 98.0 F Temperature Source Temporal Pulse Rate 54 L Respiratory Rate 16 Blood Pressure 101/38 L Blood Pressure Mean 59 Pulse Ox 100 Oxygen Delivery Method Room Air Positive obese General Appearance ED: NAD Nutritional Appearance: obese HEENT normocephalic and atraumatic Eyes PERRL and EOMs intact bilaterally Resp normal respiratory effort and clear to auscultation bilaterally Cardio regular rate and regular rhythm Scrotum: testes descended bilaterally; Negative for tenderness, erythema, edematous or scrotal swelling Testes: other Posterior aspect of testicles into the perineum has some excoriations. There is some dried blood in this area. I do not appreciate any abscess, laceration, active bleeding. Extremity normal to inspection Neuro oriented x3 Sensorium / Orientation: alert Psych mental status grossly normal Skin Skin Narrative: Rash as described above MDM MDM MDM Narrative Medical decision making narrative: Patient presenting with irritation in the posterior scrotum and in the perineum. There does not appear to be any GI bleeding from the rectum. Patient states that he saw clots when he wiped earlier however this is likely due to the blood in his underwear clotting. There does not appear to be any cellulitis. Patient is counseled that he needs to use a barrier cream such as Desitin at home. He is to clean the area and put Desitin on this at least twice daily. While in the ED he continuously wipe that it and I counseled that he needs to let the blood clot so the irritation can close off. He is counseled if he has any signs of worsening such as cellulitis or systemic signs or symptoms she should return to the ER but at this time I do not believe he needs antibiotics. Impression: 1. Wound check?no infection 2. Scrotal irritation Discharge Plan Triage Chief Complaint: Male Pain/Injury ED Provider: Greg Lorenzo Dx/Rx/DC Orders Instructions: ED Wound Check (No Infection) Prescriptions: No Action warfarin 5 MG tablet 7.5 mg PO DAILY RF: 0 brimonidine 1 DROP bottle 1 drp LEFT EYE TID Qty: 1 RF: 0 acetaminophen 500 mg Capsule 1,000 - 1,500 mg PO TID RF: 0 oxycodone 5 mg Capsule 5 mg PO DAILY RF: 0 sucroferric oxyhydroxide 500 mg Tablet,Chewable 1,000 mg PO BID RF: 0 amiodarone [Pacerone] 200 mg tablet 200 mg PO DAILY Qty: 30 RF: 3 midodrine 5 mg tablet 5 mg PO TID Qty: 90 RF: 3 Primary Care Provider: Pawel Banda Referrals: Pawel Banda MD [Primary Care Provider] - Disposition Disposition: Home, Self Care
[2021-04-20] MEDS: Nystatin Powder 15gm Bottle 1 APPLIC TOPICAL (00:09)
== END 2021-04-20 00:23 | disposition home or self-care (01) ==
LOC: ED 04-20 00:10
PROVIDERS: Emergency Provider Student in an Organized Health Care Education/Training Program; PCP Internal Medicine
DX: N50.82 Scrotal pain (principal); E66.9 Obesity, unspecified; I25.2 Old myocardial infarction; Z79.01 Long term (current) use of 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s; Z99.2 Dependence on renal dialysis; Z86.718 Personal history of other venous thrombosis and embolism; Z86.711 Personal history of pulmonary embolism; Z79.899 Other long term (current) drug therapy; Z86.16 Personal history of COVID-19
CPT/HCPCS: 99283

== ENCOUNTER 2021-04-26 08:00 | Outpatient (RCR) | payer MEDICARE, MEDICAID, SELFPAY ==
[2021-03-29 00:29] VITALS: BP 113/64; PULSE 92; RESP 20; TEMP 36.1
[2021-04-11 09:54] VITALS: BP 127/66; PULSE 97; RESP 18; TEMP 36.3; BMI 42.8
--- NOTE | 2021-04-11 12:08 | PN.PCM_ITS ---
History of Present Illness Date of Service: 04/11/21 Chief Complaint: follow up R lower Back wound History of Wound: 40 year old Black male in end stage renal on dialysis and has a primary Dr . He developed severe abd pain N V and fatigue to the point of unable to walk now .He usually works and walks. Extremely Obese and developed renal failure because of the hypertensive crisis 14 years ago. he is now chilling in the office but shows no temp The wound on his lower R back is in the fold of the skin and had been to 2 different Ed and they told him hi had shingles .They both put him on antibiotics . The wound is probably form clothing or something cutting into his skin and the wound appears clean and no erythema around him . He pulse ox well but is chilling and keeps holding his stomach .VS are stable ? covid or sepsis or both. Progress of Wound: The wound appears flatter and developing granulating tissue Subjective Subjective Patient had no concerns Objective Data Objective Data Debrided mostly just dried blood around the wound and fibrin from the wound. Appears flatter. Patient will obtain an epi #3 today tolerating well Vital Signs: Vital Signs Temp Pulse Resp BP 97.4 F L 97 18 127/66 H 04/11/21 09:54 04/11/21 09:54 04/11/21 09:54 04/11/21 09:54 Oxygen Delivery Method Room Air Weight: 289 lb Body Mass Index (BMI) 42.8 Physical Exam Const oriented x3 General Appearance: cooperative Exam Limitations: no limitations Resp normal respiratory effort Effort and Inspection: able to speak in complete sentences Auscultation: clear to auscultation bilaterally Cardio regular rate and regular rhythm Palpation: normal PMI Rate: regular rate Rhythm: regular rhythm Back/Spine Cervical Spine: cervical ROM normal Thoracic Spine / Upper Back: normal to inspection Lumbar Spine / Lower Back: normal to inspection Skin Wounds: wounds noted Neuro oriented x3 Psych Appearance: grossly normal Speech: normal speech Thought Content: normal thought content Judgement: judgement good Debridement Note Debridement Note Post-Debridement Measurements and Additional Note: Post-Debridement Measurements/Treatment WC - Nurse 1 - General Ulcer Assessment Start: 04/11/21 09:52 Freq: Status: Active Protocol: [email or web address].LOWEXT Activity Type Activity Date Activity User E-Sign Co-Sign Detail Recorded Client Recorded Date Recorded By Document 04/11/21 09:54 [facility] [id number] 04/11/21 10:01 [facility] 04/11/21 09:54 - Today's Visit Information Type of service Follow-up Visit (Physician/TYPIST ) Arrival Mode Ambulatory Transfer Assistance None Patient Identification Verified (Name & Yes ) Patient Requires Transmission-Based No Precautions Height and Weight Body Mass Index (BMI) 42.8 BMI Classification Obese Vital Signs Temperature (97.8 F-99.1 F) 97.4 F L Temperature Source Temporal Pulse Rate (60-100) 97 Pulse Location Monitor Respiratory Rate (12-18) 18 Respiratory rate source Observation Oxygen Delivery Method Room Air Blood Pressure (90/60-120/80) 127/66 H Blood Pressure Mean (mm Hg) 86 Source Monitor Position Sitting Blood Pressure Location Right Forearm History Since Last Visit- (Skip if this is Patient's initial visit) Have you changed medications since your No last visit? Any new allergies or adverse reactions No Had a fall/change in ADL's that may No increase risk of falls Signs or symptoms of abuse and/or No neglect since last visit Have you been in the hospital since your No last visit? Has dressing in place as prescribed Yes Has compression in place as prescribed N/A Has offloadiing in place as prescribed N/A Experienced any changes in pain level or No management Left Footwear Regular Shoe Right Footwear Regular Shoe Pain Scale: 0-10 Numeric Is Patient Pain Free? Yes - Nurse 1 - General Ulcer Measurement Start: 04/11/21 09:52 Freq: Status: Active Protocol: Activity Type Activity Date Activity User E-Sign Co-Sign Detail Recorded Client Recorded Date Recorded By Document 04/11/21 09:54 [facility] [id number] 04/11/21 10:01 [facility] 04/11/21 09:54 Wound Center Nurse 1 #2 right lower back -Combined with other wound No -Current Size (cm) - Length 1 -Current Size (cm) - Width 3.3 -Current Size (cm) - Depth 0.3 -Total Square Cm 3.3 -Photo Taken No -Epithelialization None Present -Tunneling No -Undermining/Tunneling No -Circular Undermining No -Exudate Amt Large -Exudate Type Serosanguineous -Wound Margin Distinct, Outline Attached -Granulation Amt None Present (0 %) -Slough/Fibrin Yes -Necrosis Amt Large (67-100%) -Necrotic Tissue Type Adherent Slough -Texture (Skye-wound Skin Appearance) Assessed, Scarring -Moisture (Skye-wound Skin Appearance) Assessed -Color (Skye-wound Skin Appearance) Assessed -Temperature (Skye-wound Skin No Abnormality Appearance) (Pt Warm) -Tenderness on Palpation (Skye-wound Yes Skin Appearance) -Ulcer Cleansing soapy water -Foul Odor after Cleansing No -Anesthetic Used 5% Lidocaine Gel WC - Nurse 2 - General Ulcer CM Notes Start: 04/11/21 09:52 Freq: Status: Active Protocol: Activity Type Activity Date Activity User E-Sign Co-Sign Detail Recorded Client Recorded Date Recorded By Document 04/11/21 10:26 MW [id number] 04/11/21 10:35 MW 04/11/21 10:26 Wound Center Nurse 2 -Time 10:27 -Correct Patient Yes -Correct Side, Site, Position Yes -Correct Procedure Yes -Procedure Performed Yes -Type of Procedure Debridement -Clinical Debridement Subcutaneous -Tissue Removed Subcutaneous -Post Debridement (cm) - Length 1.1 -Post Debridement (cm) - Width 3.5 -Post Debridement (cm) - Depth 0.1 -Total Square (Post) (cm) 3.85 -Area of Debridement (cm) - Length 1.1 -Area of Debridement (cm) - Width 3.5 -Total Square (Area) (cm) 3.85 -Tunneling No -Undermining/Tunneling No -Circular Undermining No -Wound/Ulcer Outcome Not Healed -Ulcer Cleansing Rinsed/ Irrigated with Saline -Foul Odor after Cleansing No -Bioengineered Tissue Yes -Type of Bioengineered Tissue Epifix Mesh -Expiration Date 11/27/25 -Product Lot Number [id number] -Percent Used 100 -Lot number of Saline Used [id number] -Bleeding Controlled with Pressure -Offloading No -Treatment Response Procedure Tolerated Well -Debridement - Subq, 1st 20sq cm No -Apply Skin Sub - 1st 25 sq cm - Legs 1 -Epifix Mesh (per sq cm) 11 WC - Nurse 3 - General Ulcer D/C NN Start: 04/11/21 09:52 Freq: Status: Active Protocol: Activity Type Activity Date Activity User E-Sign Co-Sign Detail Recorded Client Recorded Date Recorded By Document 04/11/21 10:35 MW [id number] 04/11/21 10:35 MW 04/11/21 10:35 Wound Care Nurse 3 -Ulcer Cleansing Not Cleansed -Foul Odor after Cleansing No -Negative Pressure Wound Therapy N/A -Primary Dressing Applied Mepilex Border -Mepilex Border 1 Treatment Response Procedure Tolerated Well Pain Scale: 0-10 Numeric Is Patient Pain Free? Yes WC - Visit Discharge Discharge Condition Stable Ambulatory Status Ambulatory Transportation Private Auto Accompanied by SELF Medication Reconcilliation completed & No provided to patient/care provider Clinical Summary of Care Provided Yes Wound debrided: Right lower back wound Type of Debridement: Excisional debridement Anesthesia Used: 5% Lidocaine Gel Depth: Down to and including healthy tissue and in the subcutaneous layer Percentage of wound debrided: 100 Instrument Used: 7mm curette Tissue Removed: Fibrin Severity: Limited To Skin Breakdown Amount of bleeding with debridement: Mild Bleeding Controlled with: Pressure Patient tolerated procedure: Patient tolerated procedure well Assessment/Plan Assessment/Plan (1) Non-healing non-surgical wound: CODE(S): T14.8XXA - Other injury of unspecified body region, initial encounter PLAN: Epi fix#3 applied to right lower back covered with wound veil Steri-Strips , Aquacel extra then Mediplex dressing then a drape Patient is instructed not to get it wet and leave alone follow-up in 1 week (2) ESRD on hemodialysis: CODE(S): N18.6 - End stage renal disease; Z99.2 - Dependence on renal dialysis (3) Anemia of chronic disorder: CODE(S): D63.8 - Anemia in other chronic diseases classified elsewhere
[2021-04-18 08:23] VITALS: BP 136/78; PULSE 88; TEMP 36.3; BMI 42.8
--- NOTE | 2021-04-18 09:26 | PCM.WC.PN ---
History of Present Illness Date of Service: 04/18/21 Chief Complaint: follow up R lower Back wound History of Wound: 40 year old Black male in end stage renal on dialysis and has a primary Dr . He developed severe abd pain N V and fatigue to the point of unable to walk now .He usually works and walks. Extremely Obese and developed renal failure because of the hypertensive crisis 14 years ago. he is now chilling in the office but shows no temp The wound on his lower R back is in the fold of the skin and had been to 2 different Ed and they told him hi had shingles .They both put him on antibiotics . The wound is probably form clothing or something cutting into his skin and the wound appears clean and no erythema around him . He pulse ox well but is chilling and keeps holding his stomach .VS are stable ? covid or sepsis or both. Progress of Wound: The wound appears flatter and developing granulating tissue Subjective Subjective Patient complains of increased pain this last week. Outer dressing fell off by Friday. Went to [facility] and they put lidocaine on it and send him home. Patient feels it is not getting better yet measurements show smaller and flatter. Objective Data Objective Data Wound appears flatter epi fix #4 applied tolerated well will reinforce better with better taping over the pad Vital Signs: Vital Signs Temp Pulse Resp BP 97.4 F L 88 18 136/78 H 04/18/21 08:23 04/18/21 08:23 04/11/21 09:54 04/18/21 08:23 Oxygen Delivery Method Room Air Weight: 289 lb Body Mass Index (BMI) 42.8 Physical Exam Narrative GENERAL: cooperative HEENT: Atraumatic; EYES; Anicteric, Normal Conjunctiva NECK; supple, normal thyroid, RESPIRATORY: Diminished to auscultation CARDIOVASCULAR:? Regular S1 S2, GI:? soft, normoactive bowel sounds, : No Renal angle tenderness; EXTREMITIES:? No edema, no clubbing, MUSCULOSKELETAL:? no muscle waisting NEURO:? Awake;? no lateralizing signs. SKIN:? 3cm scab/wound on the right lower back PSYCH; Flat? affect Debridement Note Debridement Note Post-Debridement Measurements and Additional Note: Post-Debridement Measurements/Treatment WC - Nurse 1 - General Ulcer Assessment Start: 04/11/21 09:52 Freq: Status: Active Protocol: WC.LOWEXT Activity Type Activity Date Activity User E-Sign Co-Sign Detail Recorded Client Recorded Date Recorded By Document 04/11/21 09:54 [facility] [id number] 04/11/21 10:01 [facility] Document 04/18/21 08:23 KR [id number] 04/18/21 08:25 KR 04/11/21 04/18/21 09:54 08:23 - Today's Visit Information Type of service Follow-up Visit Follow-up Visit (Physician/MACHINE DESIGN TEACHER (Physician/MACHINE DESIGN TEACHER ) ) Arrival Mode Ambulatory Ambulatory Transfer Assistance None Patient Identification Verified (Name & Yes Yes ) Patient Requires Transmission-Based No Precautions Height and Weight Body Mass Index (BMI) 42.8 42.8 BMI Classification Obese Obese Vital Signs Temperature (97.8 F-99.1 F) 97.4 F L 97.4 F L Temperature Source Temporal Temporal Pulse Rate (60-100) 97 88 Pulse Location Monitor Monitor Respiratory Rate (12-18) 18 Respiratory rate source Observation Oxygen Delivery Method Room Air Blood Pressure (90/60-120/80) 127/66 H 136/78 H Blood Pressure Mean (mm Hg) 86 97 Source Monitor Monitor Position Sitting Sitting Blood Pressure Location Right Forearm Left Arm History Since Last Visit- (Skip if this is Patient's initial visit) Have you changed medications since your No No last visit? Any new allergies or adverse reactions No No Had a fall/change in ADL's that may No No increase risk of falls Signs or symptoms of abuse and/or No No neglect since last visit Have you been in the hospital since your No Yes last visit? Has dressing in place as prescribed Yes Yes Has compression in place as prescribed N/A N/A Has offloadiing in place as prescribed N/A N/A Experienced any changes in pain level or No No management Left Footwear Regular Shoe Regular Shoe Right Footwear Regular Shoe Regular Shoe Pain Scale: 0-10 Numeric Is Patient Pain Free? Yes Yes - Nurse 1 - General Ulcer Measurement Start: 04/11/21 09:52 Freq: Status: Active Protocol: Activity Type Activity Date Activity User E-Sign Co-Sign Detail Recorded Client Recorded Date Recorded By Document 04/11/21 09:54 [facility] [id number] 04/11/21 10:01 [facility] Document 04/18/21 08:23 KR [id number] 04/18/21 08:25 KR 04/11/21 04/18/21 09:54 08:23 Wound Center Nurse 1 #2 right lower back -Combined with other wound No -Current Size (cm) - Length 1 1.2 -Current Size (cm) - Width 3.3 3.8 -Current Size (cm) - Depth 0.3 0.1 -Total Square Cm 3.3 4.56 -Photo Taken No -Epithelialization None Present -Tunneling No -Undermining/Tunneling No -Circular Undermining No -Exudate Amt Large Medium -Exudate Type Serosanguineous Serosanguineous -Wound Margin Distinct, Distinct, Outline Outline Attached Attached -Granulation Amt None Present (0 Small (1-33%) %) -Granulation Quality Red -Slough/Fibrin Yes -Necrosis Amt Large (67-100%) Medium (34-66%) -Necrotic Tissue Type Adherent Slough Adherent Slough -Texture (Skye-wound Skin Appearance) Assessed, Assessed, Scarring Scarring -Moisture (Skye-wound Skin Appearance) Assessed No Abnormality, Assessed -Color (Skye-wound Skin Appearance) Assessed No Abnormality, Assessed -Temperature (Skye-wound Skin No Abnormality No Abnormality Appearance) (Pt Warm) (Pt Warm) -Tenderness on Palpation (Skye-wound Yes No Skin Appearance) -Ulcer Cleansing soapy water Rinsed/ Irrigated with Saline -Foul Odor after Cleansing No No -Anesthetic Used 5% Lidocaine 5% Lidocaine Gel Gel WC - Nurse 2 - General Ulcer CM Notes Start: 04/11/21 09:52 Freq: Status: Active Protocol: Activity Type Activity Date Activity User E-Sign Co-Sign Detail Recorded Client Recorded Date Recorded By Document 04/11/21 10:26 MW [id number] 04/11/21 10:35 MW Document 04/18/21 08:30 MW [id number] 04/18/21 08:45 MW 04/11/21 04/18/21 10:26 08:30 Wound Center Nurse 2 -Time 10:27 08:30 -Correct Patient Yes Yes -Correct Side, Site, Position Yes Yes -Correct Procedure Yes Yes -Procedure Performed Yes Yes -Type of Procedure Debridement Debridement -Clinical Debridement Subcutaneous Subcutaneous -Tissue Removed Subcutaneous Subcutaneous -Post Debridement (cm) - Length 1.1 1.0 -Post Debridement (cm) - Width 3.5 3.0 -Post Debridement (cm) - Depth 0.1 0.1 -Total Square (Post) (cm) 3.85 3.00 -Area of Debridement (cm) - Length 1.1 1.0 -Area of Debridement (cm) - Width 3.5 3.0 -Total Square (Area) (cm) 3.85 3.00 -Tunneling No No -Undermining/Tunneling No No -Circular Undermining No No -Wound/Ulcer Outcome Not Healed Not Healed -Ulcer Cleansing Rinsed/ Rinsed/ Irrigated with Irrigated with Saline Saline -Foul Odor after Cleansing No No -Bioengineered Tissue Yes Yes -Type of Bioengineered Tissue Epifix Mesh Epifix Mesh -Expiration Date 11/27/25 11/27/25 -Product Lot Number [id number] -Percent Used 100 100 -Lot number of Saline Used [id number] -Bleeding Controlled with Pressure Pressure -Offloading No No -Treatment Response Procedure Procedure Tolerated Well Tolerated Well -Debridement - Subq, 1st 20sq cm No No -Apply Skin Sub - 1st 25 sq cm - Legs 1 1 -Epifix Mesh (per sq cm) 11 11 Pain Scale: 0-10 Numeric Is Patient Pain Free? Yes - Nurse 3 - General Ulcer D/C NN Start: 04/11/21 09:52 Freq: Status: Active Protocol: Activity Type Activity Date Activity User E-Sign Co-Sign Detail Recorded Client Recorded Date Recorded By Document 04/11/21 10:35 MW [id number] 04/11/21 10:35 MW Document 04/18/21 08:47 MW [id number] 04/18/21 08:47 MW 04/11/21 04/18/21 10:35 08:47 Teaching: Wound Center Dressing Your Wound -Person Taught Patient -Teaching Method Discussion, Demonstration -Response to teaching Verbalize understanding Wound Care Nurse 3 #2 right lower back -Ulcer Cleansing Not Cleansed -Foul Odor after Cleansing No -Negative Pressure Wound Therapy N/A -Primary Dressing Applied Mepilex Border Aquacel Extra, Mepilex Border -Primary Dressing Covered/Secured with Secured with Tape -Aquacel Extra 1 -Mepilex Border 1 1 Treatment Response Procedure Tolerated Well Pain Scale: 0-10 Numeric Is Patient Pain Free? Yes Yes WC - Visit Discharge Discharge Condition Stable Stable Ambulatory Status Ambulatory Ambulatory Transportation Private Auto Private Auto Accompanied by SELF SELF Medication Reconcilliation completed & No No provided to patient/care provider Clinical Summary of Care Provided Yes Yes Wound debrided: Right lower back traumatic wound Type of Debridement: Excisional debridement Anesthesia Used: 5% Lidocaine Gel Depth: Down to and including healthy tissue and in the subcutaneous layer Percentage of wound debrided: 100 Instrument Used: 7mm curette Tissue Removed: Fibrin and devitalized tissue Severity: Limited To Skin Breakdown Amount of bleeding with debridement: Mild Bleeding Controlled with: Compression and gauze Assessment/Plan Assessment/Plan (1) Non-healing non-surgical wound: CODE(S): T14.8XXA - Other injury of unspecified body region, initial encounter PLAN: Epi fix#4 applied to right lower back covered with wound veil Steri-Strips , Aquacel extra then Mediplex dressing then a drape Patient is instructed not to get it wet and leave alone follow-up in 1 week with another provider because of his schedule with hemodialysis interferes with wound care. 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
[2021-04-26 08:21] VITALS: BP 118/70; PULSE 99; RESP 18; TEMP 35.8; BMI 42.8
--- NOTE | 2021-04-26 11:07 | PCM.WC.HP ---
History of Present Illness Date of Service: 04/26/21 Chief Complaint: follow up R lower Back wound History of Wound: Mr. Weston is a 41 well known to me and who is currently a transfer of care to [place] due to conflicting dates for Wound care and dialysis. He has been seen her for right sided back wound. Currently in the fold of his right back. Initial assumption after ER visit was for shingles. He has been receiving care here and is currently on Epifix weekly. He reports more pain in the area and was recently at the ER. At this time, he denies chills, fever, nausea or vomiting. [facility] Medical History (Updated 04/26/21 @ 12:[address] 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) Central retinal artery occlusion of left eye (10/09/20) Chronic kidney disease-mineral and bone disorder Chronic pelvic pain in male Chronic ulcer of back COVID-19 virus detected (03/20/20) Dialysis patient ESRD on hemodialysis Essential (primary) hypertension Expressive aphasia (04/05/20) Hearing loss Hematuria History of bacterial endocarditis History of blood clots History of non-ST elevation myocardial infarction (NSTEMI) (11/08/19) History of pulmonary embolus (PE) History of venous thromboembolism 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 due to renal insufficiency 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 snf current use of 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 Mechanical complication of arteriovenous fistula surgically created Mitral valve annular calcification Morbidly obese Non compliance w medication regimen Non-healing non-surgical wound Nonrheumatic mitral valve stenosis with insufficiency Obstructive sleep apnea Paroxysmal atrial fibrillation (06/10/20) Paroxysmal atrial flutter 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) Pelvic mass Unspecified symptoms and signs involving cognitive functions and awareness (04/05/20) Home Medications warfarin 7.5 mg PO DAILY 10/06/20 [History Last Taken 02/13/21] brimonidine 1 drp LEFT EYE TID #1 bottle 10/09/20 [Rx Last Taken 02/13/21] acetaminophen 1,000 - 1,500 mg PO TID 02/14/21 [History Last Taken 02/12/21] amiodarone 200 mg tablet 200 mg PO DAILY #30 tab 03/29/21 [Rx Last Taken Unknown] midodrine 5 mg tablet 5 mg PO TID #90 tab 03/29/21 [Rx Last Taken Unknown] oxycodone 5 mg PO DAILY 04/04/21 [History Last Taken Unknown] sucroferric oxyhydroxide 1,000 mg PO BID 04/04/21 [History Last Taken Unknown] Allergy/AdvReac Type Severity Reaction Status Date / Time No Known Allergies Allergy Verified 04/19/21 23:43 Family History Other Adopted Surgical History History of cardioversion (12/02/18) history of cather replacement History of herniorrhaphy History of left heart catheterization (09/17/18) History of repair of congenital cleft palate Mechanical complication of dialysis catheter Status post creation of arteriovenous fistula Social History Smoking Status: Never smoker alcohol intake: never substance use type: marijuana what type of physical activity do you participate in: none ROS Constitutional Constitutional: Reports fatigue; Denies fever(s), headache(s) or night sweats Eyes Eyes: Denies change in eye color, discongugate gaze, foreign body or loss of central vision ENT HEENT: Denies facial pain, foreign body in nose, halitosis, mucositis or nasal congestion Cardiovascular Cardiovascular: Reports fatigue; Denies dyspnea at rest, dyspnea on exertion or flutter in chest Respiratory/Chest Respiratory/Chest: Denies chest congestion, chest tightness, cough, hoarseness or inability to speak Gastrointestinal Gastrointestinal: Denies hematemesis Genitourinary Genitourinary: Reports flank pain; Denies genital lesions, genital pain, urinary incontinence or urinary urgency Musculoskeletal Musculoskeletal: Reports joint stiffness; Denies abnormal gait, arthralgias, atrophy or joint swelling Integumentary Integumentary: Denies erythema, furuncle, hirsutism, jaundice, lesions or nail changes Neurologic Neurologic: Denies burning sensations, confusion, convulsions, disequilibrium or dizziness Psychiatric Psychiatric: Denies anxiety, auditory hallucinations, difficulty concentrating or hallucinations Endocrine Endocrinology: Reports fatigue; Denies excessive sweating, heat intolerance, increase in ring/shoe/hat size or palpitations Allergic/Immunologic Allergic/Immunologic: Denies tongue swelling, hives, urticaria, eczemia or wheezing Vital Signs Vital Signs Vital Signs: 04/26/21 08:21 Temperature 96.4 F L Temperature Source Temporal Pulse Rate 99 Respiratory Rate 18 Blood Pressure 118/70 Blood Pressure Mean 86 Blood Pressure Source Monitor Blood Pressure Position Semi-Fowlers Blood Pressure Location Left Arm Weight Weight: 289 lb Body Mass Index (BMI) 42.8 Physical Exam Const alert, oriented x3 and no apparent distress General Appearance: cooperative, comfortable and well kempt HEENT normocephalic and head/scalp atraumatic Head and Scalp: normal to inspection, normocephalic and atraumatic Resp normal respiratory effort Effort and Inspection: able to speak in complete sentences Skin Wounds: wounds noted Neuro oriented x3, CN's II-XII intact bilaterally and moves all extremities Psych mental status grossly normal Appearance: grossly normal Attitude: calm Activity / Motor Behavior: appropriate eye contact Debridement Note Debridement Note Post-Debridement Measurements and Additional Note: Post-Debridement Measurements/Treatment - Nurse 1 - General Ulcer Assessment Start: 04/11/21 09:52 Freq: Status: Active Protocol: FAISAL Activity Type Activity Date Activity User E-Sign Co-Sign Detail Recorded Client Recorded Date Recorded By Document 04/11/21 09:54 [facility] [id number] 04/11/21 10:01 [facility] Document 04/18/21 08:23 KR [id number] 04/18/21 08:25 KR Document 04/26/21 08:21 RB [id number] 04/26/21 08:24 RB 04/11/21 04/18/21 04/26/21 09:54 08:23 08:21 - Today's Visit Information Type of service Follow-up Visit Follow-up Visit Follow-up Visit (Physician/ENROLLMENT COORDINATOR (Physician/ENROLLMENT COORDINATOR (Physician/ENROLLMENT COORDINATOR ) ) ) Arrival Mode Ambulatory Ambulatory Ambulatory Transfer Assistance None None Patient Identification Verified (Name & Yes Yes Yes ) Patient Requires Transmission-Based No No Precautions Height and Weight Body Mass Index (BMI) 42.8 42.8 42.8 BMI Classification Obese Obese Obese Vital Signs Temperature (97.8 F-99.1 F) 97.4 F L 97.4 F L 96.4 F L Temperature Source Temporal Temporal Temporal Pulse Rate (60-100) 97 88 99 Pulse Location Monitor Monitor Monitor Respiratory Rate (12-18) 18 18 Respiratory rate source Observation Ausculation Oxygen Delivery Method Room Air Blood Pressure (90/60-120/80) 127/66 H 136/78 H 118/70 Blood Pressure Mean 86 97 86 Source Monitor Monitor Monitor Position Sitting Sitting Semi-Fowlers Blood Pressure Location Right Forearm Left Arm Left Arm History Since Last Visit- (Skip if this is Patient's initial visit) Have you changed medications since your No No No last visit? Any new allergies or adverse reactions No No No Had a fall/change in ADL's that may No No No increase risk of falls Signs or symptoms of abuse and/or No No No neglect since last visit Have you been in the hospital since your No Yes No last visit? Has dressing in place as prescribed Yes Yes Yes Has compression in place as prescribed N/A N/A No Has offloadiing in place as prescribed N/A N/A No Experienced any changes in pain level or No No No management Left Footwear Regular Shoe Regular Shoe Regular Shoe Right Footwear Regular Shoe Regular Shoe Regular Shoe Pain Scale: 0-10 Numeric Is Patient Pain Free? Yes Yes Yes - Nurse 1 - General Ulcer Measurement Start: 04/11/21 09:52 Freq: Status: Active Protocol: Activity Type Activity Date Activity User E-Sign Co-Sign Detail Recorded Client Recorded Date Recorded By Document 04/11/21 09:54 [facility] [id number] 04/11/21 10:01 [facility] Document 04/18/21 08:23 KR [id number] 04/18/21 08:25 KR Document 04/26/21 08:21 RB [id number] 04/26/21 08:24 RB 04/11/21 04/18/21 04/26/21 09:54 08:23 08:21 Wound Center Nurse 1 #2 right lower back -Combined with other wound No No -Current Size (cm) - Length 1 1.2 1.2 -Current Size (cm) - Width 3.3 3.8 4 -Current Size (cm) - Depth 0.3 0.1 0.2 -Total Square Cm 3.3 4.56 4.8 -Photo Taken No -Epithelialization None Present -Tunneling No No -Undermining/Tunneling No No -Circular Undermining No No -Exudate Amt Large Medium Medium -Exudate Type Serosanguineous Serosanguineous Serosanguineous -Wound Margin Distinct, Distinct, Distinct, Outline Outline Outline Attached Attached Attached -Granulation Amt None Present (0 Small (1-33%) Medium (34-66%) %) -Granulation Quality Red [place] -Slough/Fibrin Yes Yes -Necrosis Amt Large (67-100%) Medium (34-66%) Medium (34-66%) -Necrotic Tissue Type Adherent Slough Adherent Slough Adherent Slough -Structure Exposed N/A -Texture (Skye-wound Skin Appearance) Assessed, Assessed, Assessed Scarring Scarring -Moisture (Skye-wound Skin Appearance) Assessed No Abnormality, Assessed Assessed -Color (Skye-wound Skin Appearance) Assessed No Abnormality, Assessed Assessed -Temperature (Skye-wound Skin No Abnormality No Abnormality No Abnormality Appearance) (Pt Warm) (Pt Warm) (Pt Warm) -Tenderness on Palpation (Skye-wound Yes No No Skin Appearance) -Ulcer Cleansing soapy water Rinsed/ Wound Cleanser Irrigated with Saline -Foul Odor after Cleansing No No No -Anesthetic Used 5% Lidocaine 5% Lidocaine 4% Lidocaine Gel Gel Solution WC - Nurse 2 - General Ulcer CM Notes Start: 04/11/21 09:52 Freq: Status: Active Protocol: Activity Type Activity Date Activity User E-Sign Co-Sign Detail Recorded Client Recorded Date Recorded By Document 04/11/21 10:26 MW [id number] 04/11/21 10:35 MW Document 04/18/21 08:30 MW [id number] 04/18/21 08:45 MW Document 04/26/21 08:49 MW [id number] 04/26/21 08:58 MW 04/11/21 04/18/21 04/26/21 10:26 08:30 08:49 Wound Center Nurse 2 #2 right lower back -Time 10:27 08:30 08:57 -Correct Patient Yes Yes Yes -Correct Side, Site, Position Yes Yes Yes -Correct Procedure Yes Yes Yes -Procedure Performed Yes Yes Yes -Type of Procedure Debridement Debridement Debridement -Clinical Debridement Subcutaneous Subcutaneous Subcutaneous -Tissue Removed Subcutaneous Subcutaneous Subcutaneous -Post Debridement (cm) - Length 1.1 1.0 1.2 -Post Debridement (cm) - Width 3.5 3.0 5.0 -Post Debridement (cm) - Depth 0.1 0.1 0.1 -Total Square (Post) (cm) 3.85 3.00 6.00 -Area of Debridement (cm) - Length 1.1 1.0 1.2 -Area of Debridement (cm) - Width 3.5 3.0 5.0 -Total Square (Area) (cm) 3.85 3.00 6.00 -Tunneling No No No -Undermining/Tunneling No No No -Circular Undermining No No No -Wound/Ulcer Outcome Not Healed Not Healed Not Healed -Ulcer Cleansing Rinsed/ Rinsed/ Rinsed/ Irrigated with Irrigated with Irrigated with Saline Saline Saline -Foul Odor after Cleansing No No No -Bioengineered Tissue Yes Yes Yes -Type of Bioengineered Tissue Epifix Mesh Epifix Mesh Epifix Mesh -Expiration Date 11/27/25 11/27/25 11/27/25 -Product Lot Number [id number] -Percent Used 100 100 100 -Lot number of Saline Used [id number] -Bleeding Controlled with Pressure Pressure Pressure -Offloading No No No -Treatment Response Procedure Procedure Procedure Tolerated Well Tolerated Well Tolerated Well -Debridement - Subq, 1st 20sq cm No No No -Apply Skin Sub - 1st 25 sq cm - Legs 1 1 1 -Epifix Mesh (per sq cm) 11 11 11 Pain Scale: 0-10 Numeric Is Patient Pain Free? Yes Yes - Nurse 3 - General Ulcer D/C NN Start: 04/11/21 09:52 Freq: Status: Active Protocol: Activity Type Activity Date Activity User E-Sign Co-Sign Detail Recorded Client Recorded Date Recorded By Document 04/11/21 10:35 MW [id number] 04/11/21 10:35 MW Document 04/18/21 08:47 MW [id number] 04/18/21 08:47 MW Document 04/26/21 08:53 RB [id number] 04/26/21 08:54 RB Edit Result 04/26/21 08:53 RB (1) [id number] 04/26/21 09:11 RB Edit Result 04/26/21 08:53 RB (2) [id number] 04/26/21 09:12 RB (1) #2 right lower back - Primary Dressing Covered/Secured with Dry Gauze,Dry => Gauze & Roll Gauze => ,Secured with Tape => - Other Covering => mepilex foam => secure with drape (2) Ambulatory Status Ambulatory, => Ambulatory Crutches => 04/11/21 04/18/21 04/26/21 10:35 08:47 08:53 Teaching: Wound Center Dressing Your Wound -Person Taught Patient -Teaching Method Discussion, Demonstration -Response to teaching Verbalize understanding Wound Care Nurse 3 #2 right lower back -Ulcer Cleansing Not Cleansed -Foul Odor after Cleansing No -Negative Pressure Wound Therapy N/A -Primary Dressing Applied Mepilex Border Aquacel Extra, Mepilex Border -Primary Dressing Covered/Secured with Secured with Tape -Other Covering mepilex foam secure with drape -Aquacel Extra 1 -Mepilex Border 1 1 Treatment Response Procedure Procedure Tolerated Well Tolerated Well Pain Scale: 0-10 Numeric Is Patient Pain Free? Yes Yes Yes WC - Visit Discharge Discharge Condition Stable Stable Stable Ambulatory Status Ambulatory Ambulatory Ambulatory Transportation Private Auto Private Auto Private Auto Accompanied by SELF SELF Medication Reconcilliation completed & No No No provided to patient/care provider Clinical Summary of Care Provided Yes Yes Yes Wound debrided: Right Flank Type of Debridement: Excisional debridement Anesthesia Used: 4% Lidocaine Solution Depth: Down to and including healthy tissue and in the subcutaneous layer Percentage of wound debrided: 100 Instrument Used: 5mm curette Tissue Removed: Slough and devitalized tissue Severity: Fat Layer Exposed Amount of bleeding with debridement: Mild Bleeding Controlled with: Pressure Patient tolerated procedure: Patient tolerated procedure well Charges/Coding Visit Charges Office Visits / Consults: [id number] OV L3 Est Procedures Integumentary 150xxx-152xx: 61531 Skin sub graft trnk/arm/leg Assessment/Plan Assessment/Plan (1) Chronic ulcer of back: CODE(S): L98.429 - Non-pressure chronic ulcer of back with unspecified severity (2) ESRD on hemodialysis: CODE(S): N18.6 - End stage renal disease; Z99.2 - Dependence on renal dialysis (3) Paroxysmal atrial fibrillation: CODE(S): I48.0 - Paroxysmal atrial fibrillation PLAN: Transfer of care due to wound care coinciding with dialysis days. Debridement done as documented above, procedure was well-tolerated. Epifix Mesh applied done today using 100% of product. Moistened with saline and Adaptic touch over top. Secured with Steri-Strips. Leave in place for a week. Cultures taken due to pain however no significant discomfort on debridement and no concerning features for infection noted. Was advised to call with any concerns. Continue adequate protein intake and offloading. Follow-up in a week. This note was generated with [employer] dictation software. It may contain incorrect words, spelling, and punctuation that were not noted in checking the note before signing.
== END 2021-04-28 23:59 ==
LOC: WC 08:00
PROVIDERS: PCP Internal Medicine; Visit Provider Internal Medicine
DX: S31.000A Unspecified open wound of lower back and pelvis without penetration into retroperitoneum, initial encounter (principal); X58.XXXA Exposure to other specified factors, initial encounter; N18.6 End stage renal disease; D63.8 Anemia in other chronic diseases classified elsewhere; Z99.2 Dependence on renal dialysis; E66.01 Morbid (severe) obesity due to excess calories; I12.0 Hypertensive chronic kidney disease with stage 5 chronic kidney disease or end stage renal disease; Z68.41 Body mass index [BMI] 40.0-44.9, adult; Z86.718 Personal history of other venous thrombosis and embolism; Z79.01 Long term (current) use of 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s; I25.2 Old myocardial infarction; G47.33 Obstructive sleep apnea (adult) (pediatric); I48.0 Paroxysmal atrial fibrillation; I48.92 Unspecified atrial flutter; N25.81 Secondary hyperparathyroidism of renal origin; Z91.14 Patient's other noncompliance with medication regimen
CPT/HCPCS: 15271; 87070; 87075; 87077; 87186; 87205; Q4186

== ENCOUNTER 2021-05-07 00:32 | Emergency (ER) | payer MEDICARE, MEDICAID, SELFPAY ==
[2021-05-03 09:28] VITALS: BMI 40.1
[2021-05-07 00:32] VITALS: BP 99/68; PULSE 96; RESP 16; TEMP 37.1; O2SAT 99; BMI 42.4
[2021-05-07 00:34] VITALS: BP 99/68; PULSE 96; RESP 16; TEMP 37.1; O2SAT 99
--- NOTE | 2021-05-07 01:17 | EX.ED.DYSGE1 ---
HPI History of Present Illness Chief Complaint: Abscess Informant: patient Narrative Narrative: Patient has had an ulcer of his right lower back area. This has been going on for several months. He was septic from this once before. He has been seeing the wound center. It started to change a little bit on . He was placed on antibiotics. It sounds like this is likely amoxicillin. He is now on his third day of antibiotics. He is not getting documented fevers chills. He has no nausea vomiting. No myalgias. But he states that the ulcer is sore. It is been hurting him every single day for 3 months. He just states he cannot tolerate it anymore. He is eating drinking. He is taking all his meds. He does not have diabetes. 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) Central retinal artery occlusion of left eye (10/09/20) Chronic kidney disease-mineral and bone disorder Chronic pelvic pain in male Chronic ulcer of back COVID-19 virus detected (03/20/20) Dialysis patient ESRD on hemodialysis Essential (primary) hypertension Expressive aphasia (04/05/20) Hearing loss Hematuria History of bacterial endocarditis History of blood clots History of non-ST elevation myocardial infarction (NSTEMI) (11/08/19) History of pulmonary embolus (PE) History of venous thromboembolism 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 due to renal insufficiency 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 snf current use of 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 Mechanical complication of arteriovenous fistula surgically created Mitral valve annular calcification Morbidly obese Non compliance w medication regimen Non-healing non-surgical wound Nonrheumatic mitral valve stenosis with insufficiency Obstructive sleep apnea Paroxysmal atrial fibrillation (06/10/20) Paroxysmal atrial flutter 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) Pelvic mass Unspecified symptoms and signs involving cognitive functions and awareness (04/05/20) Home Medications warfarin 7.5 mg PO DAILY 10/06/20 [History Last Taken 02/13/21] brimonidine 1 drp LEFT EYE TID #1 bottle 10/09/20 [Rx Last Taken 02/13/21] acetaminophen 1,000 - 1,500 mg PO TID 02/14/21 [History Last Taken 02/12/21] amiodarone 200 mg tablet 200 mg PO DAILY #30 tab 03/29/21 [Rx Last Taken Unknown] midodrine 5 mg tablet 5 mg PO TID #90 tab 03/29/21 [Rx Last Taken Unknown] oxycodone 5 mg PO DAILY 04/04/21 [History Last Taken Unknown] sucroferric oxyhydroxide 1,000 mg PO BID 04/04/21 [History Last Taken Unknown] amoxicillin 500 mg tablet 250 mg PO DAILY 7 Days #4 tab 05/03/21 [Rx Last Taken Unknown] gabapentin 100 mg capsule 100 mg PO .Q72 #30 cap 05/03/21 [Rx Last Taken Unknown] oxycodone-acetaminophen [Percocet] 1 tab PO Q6H PRN 3 Days #10 tab 05/07/21 [Rx Last Taken Unknown] Allergy/AdvReac Type Severity Reaction Status Date / Time No Known Allergies Allergy Verified 05/07/21 00:35 Family History Other Adopted Surgical History History of cardioversion (12/02/18) history of cather replacement History of herniorrhaphy History of left heart catheterization (09/17/18) History of repair of congenital cleft palate Mechanical complication of dialysis catheter Status post creation of arteriovenous fistula Social History Smoking Status: Never smoker alcohol intake: never substance use type: marijuana what type of physical activity do you participate in: none ROS ROS ED Constitutional Constitutional ED: Denies chills, fever(s) or sweats Eyes Eyes: Denies blurry vision ENT ENT ED: Denies rhinorrhea Cardiovascular Cardiovascular: Denies chest pain or palpitations Respiratory/Chest Respiratory/Chest: Denies cough or dyspnea Gastrointestinal Gastrointestinal: Denies abdominal pain, nausea or vomiting Musculoskeletal Musculoskeletal: Reports back pain and other Details: Soreness in his back from the lesion he has had. ; Denies arthralgias or myalgias Integumentary Reports other Details: History of ulceration in the right lower back. Neurologic Neurologic: Denies headache(s) Allergic/Immunologic Allergic/Immunologic ED: Denies urticaria EXAM Physical Exam Const Vital Signs: 05/07/21 00:32 05/07/21 00:34 05/07/21 05:35 Temperature 98.8 F 98.8 F Temperature Source Oral Oral Pulse Rate 96 96 87 Respiratory Rate 16 16 16 Blood Pressure 99/68 99/68 105/78 Blood Pressure Mean 78 78 87 Pulse Ox 99 99 100 Oxygen Delivery Method Room Air Room Air Room Air Positive well nourished, well developed and obese General Appearance ED: well developed and NAD Nutritional Appearance: obese HEENT Negative for trauma or tenderness Eyes EOMs intact bilaterally Chest Wall inspection of chest normal Resp normal respiratory effort and clear to auscultation bilaterally Cardio regular rate and regular rhythm Rate: other Other Details: Patient has a history of atrial fibrillation but he sounds regular at this time. GI normal to inspection, nondistended, normoactive bowel sounds and non-tender Palpation: soft Back/Spine Back/Spine Narrative: Patient has an area of ulceration his right back. He had a linear section and then another area about 1 x 2 cm below it. He has a dressing on this. It actually looks relatively good. It has granulation tissue. There is no purulence or odor. I feel no abscess or induration around it. Despite his symptoms, is really not tender. Overall looks like it is healing reasonably well. Extremity normal to inspection Neuro oriented x3 Sensorium / Orientation: alert Psych mental status grossly normal Skin Wounds: wounds noted MDM MDM MDM Narrative Medical decision making narrative: Patient's blood work shows baseline hemoglobin and normal white count. Electrolytes are unremarkable. His creatinine is elevated but that is at his. Is negative. INR is therapeutic patient is feeling better after meds here. I think we can get him home. I will get him some more meds for pain here. He is being given vancomycin. He has follow-up at the wound center already. After the vancomycin was done, the patient states that he is also been having chest pain. He points to a small area at the lower left sternal border. It is a little bit tender but that does not fully reproduce his symptoms. He is not having dyspnea. In fact he is laying totally flat and comfortable. He has had this many times before. He does not know what causes it. He has had it evaluated. I did look over some of his old reports. He has been here for chest pain before. I also noted that he had a nuclear stress test earlier this year. It showed an apical defect but this was old and not an acute reversible defect. We will still look further. We will get EKG chest x-ray and troponin. These are pending at this time. Patient tells me that he gets chest pain normally on the left side. It might be related to laying in the bed here. He does feel better now. He is readjusted. I note that he has scoliosis on his x-ray. This certainly could contribute to his recurrent symptoms. His troponin is negative. His chest x-ray shows cardiomegaly but no other acute process. He is due for dialysis today. His EKG shows no significant change from prior. Lab Data Attestation: I reviewed the patient's lab results. Labs: Laboratory Results - last 24 hr 05/07/21 05/07/21 05/07/21 01:35 01:35 01:35 WBC 5.5 RBC 3.47 L Hgb 10.3 L Hct 34.0 L MCV 98.0 H MCH 29.7 MCHC 30.3 L RDW Std Deviation 68.2 H RDW Coeff of Lance 18.7 H Plt Count 238 MPV 9.8 Immature Gran % (Auto) 0.400 Neut % (Auto) 62.0 Lymph % (Auto) 16.9 L [place] % (Auto) 17.5 H Eos % (Auto) 2.5 Baso % (Auto) 0.7 Absolute Neuts (auto) 3.4 Absolute Lymphs (auto) 0.93 Nucleated RBC % 0 Polychromasia 1+ Anisocytosis 2+ PT INR Sodium 135 L Potassium 4.9 Chloride 93 L Carbon Dioxide 30.0 Anion Gap 12 BUN 48 H Creatinine 11.00 H* Estim Creat Clear Calc 9.31 Est GFR (MDRD) Af Amer 7 L Est GFR (MDRD) Non-Af 6 L BUN/Creatinine Ratio 4.4 L Glucose 90 Lactic Acid 1.6 Calcium 10.1 Troponin I High Sens 05/07/21 05/07/21 01:35 04:58 WBC RBC Hgb Hct MCV MCH MCHC RDW Std Deviation RDW Coeff of Lance Plt Count MPV Immature Gran % (Auto) Neut % (Auto) Lymph % (Auto) [place] % (Auto) Eos % (Auto) Baso % (Auto) Absolute Neuts (auto) Absolute Lymphs (auto) Nucleated RBC % Polychromasia Anisocytosis PT 31.2 H INR 3.1 Sodium Potassium Chloride Carbon Dioxide Anion Gap BUN Creatinine Estim Creat Clear Calc Est GFR (MDRD) Af Amer Est GFR (MDRD) Non-Af BUN/Creatinine Ratio Glucose Lactic Acid Calcium Troponin I High Sens 8.2 EKG Initial EKG: Comments: EKG done for chest pain read by me shows sinus rhythm with first-degree AV block and overall rate of 91. No sign of ectopy. No acute ST elevation or depression. He does have some poor anterior R wave. MD interval is long. QRS duration is normal. QTc is toward the longer end of normal at 479 ms. Overall, this is similar to 04 April of this year. Discharge Plan Triage Chief Complaint: Abscess ED Provider: Rick Chambers Dx/Rx/DC Orders Clinical Impression: Chronic ulcer of back Instructions: ED Wound Care Prescriptions: New oxycodone-acetaminophen [Percocet] 5-325 mg tablet 1 tab PO Q6H PRN (Reason: pain) 3 Days Qty: 10 RF: 0 No Action warfarin 5 MG tablet 7.5 mg PO DAILY RF: 0 brimonidine 1 DROP bottle 1 drp LEFT EYE TID Qty: 1 RF: 0 acetaminophen 500 mg Capsule 1,000 - 1,500 mg PO TID RF: 0 oxycodone 5 mg Capsule 5 mg PO DAILY RF: 0 sucroferric oxyhydroxide 500 mg Tablet,Chewable 1,000 mg PO BID RF: 0 amiodarone [Pacerone] 200 mg tablet 200 mg PO DAILY Qty: 30 RF: 3 midodrine 5 mg tablet 5 mg PO TID Qty: 90 RF: 3 gabapentin 100 mg capsule 100 mg PO .Q72 Qty: 30 RF: 0 amoxicillin 500 mg tablet 250 mg PO DAILY 7 Days Qty: 4 RF: 0 Primary Care Provider: Pawel Banda Referrals: Pawel Banda MD [Primary Care Provider] - 3-5 Days Disposition Disposition: Home, Self Care
[2021-05-07 01:47] LABS: Absolute Lymphocyte Count 0.93 X10^3/uL (0.83-4.51); Absolute Neutrophil Count 3.4 X10^3/uL (2.0-7.7); Basophil# 0.04 X10^3/uL; Basophil% 0.7 % (0-1); Eosinophil# 0.14 X10^3/uL; Eosinophils% 2.5 % (0-5); Hemoglobin 10.3 g/dL (13.0-16.5); Lymphocyte # 0.93 X10^3/ul (0.83-4.51); Lymphocyte % 16.9 % (19-41); Mean Corp Hgb Conc 30.3 g/dL (32-36); Mean Corpuscular Hgb 29.7 pg (27.0-32.0); Mean Platelet Vol. 9.8 fl (6.2-12.0); Monocyte# 0.96 X10^3/uL; Monocyte% 17.5 % (0-10); NRBC Flagged by Analyzer 0 % (0-5); Neutrophil # 3.41 X10^3/uL (2.7-7.7); POSITIVE MORPHOLOGY YES; Platelet Count 238 K/mm3 (150-450); RBC Distribution Width CV 18.7 % (11.6-14.6); RBC Distribution Width SD 68.2 fl (35.1-43.9); Red Blood Count 3.47 M/mm3 (4.6-6.2); White Blood Count 5.5 K/mm3 (4.4-11.0)
[2021-05-07 01:51] LABS: Differential Indicated SCAN CRITERIA MET
[2021-05-07] MEDS: Morphine 4 MG/ML Syringe IV ×2 (01:57→03:48)
[2021-05-07 01:58] LABS: International Normalized Ratio 3.1; Prothrombin Time (Protime)PT. 31.2 SECONDS (11.7-14.9)
[2021-05-07 02:06] LABS: Anisocytosis 2+; Polychromasia 1+
[2021-05-07 02:07] LABS: Anion Gap 12 (5-15); BUN 48 mg/dL (7-18); BUN/Creat Ratio 4.4 RATIO (10-20); Calcium,Total 10.1 mg/dL (8.5-10.1); Chloride 93 mmol/L (98-107); EST Glomerular Filtration Rate 6 mL/min (>60); Est Glom Filt Rate - Afr Amer 7 mL/min (>60); Estimated Creatinine Clearance 9.31 ml/min; Glucose 90 mg/dL (74-106); Potassium 4.9 mmol/L (3.5-5.1); Sodium Level 135 mmol/L (136-145)
[2021-05-07 02:25] LABS: Lactic Acid 1.6 mmol/L (0.4-1.9)
--- NOTE | 2021-05-07 04:53 | EKG12_ITS ---
Test Reason : CP Blood Pressure : / mmHG Vent. Rate : 091 BPM Atrial Rate : 091 BPM P-R Int : 214 ms QRS Dur : 068 ms QT Int : 390 ms P-R-T Axes : 074 137 050 degrees QTc Int : 479 ms Sinus rhythm with 1st degree A-V block Low voltage QRS Anteroseptal NC, age undetermined, cannot be excluded Borderline ECG Confirmed by ADALGISA STAHL, GOGO ([id number]), editor book MARGARITO CHANDLER ([id number]) on 05/09/2021 9:54:07 AM Referred By: YUNG Confirmed By:GOGO DIANA MD
--- NOTE | 2021-05-07 04:55 | RAD_ITS ---
STUDY: X-RAY CHEST REASON FOR EXAM: Male, 41 years old. chest pain TECHNIQUE: Single frontal view of the chest. COMPARISON: 04/04/2021 chest radiograph FINDINGS: The heart is borderline in size. There is no pneumothorax or pleural effusion identified. Decreasing pulmonary vascular congestion/edema. There is no new focal pulmonary opacity identified. Scoliotic curvature to the spine. There is no demonstrated abnormality of the visualized soft tissue structures of the upper abdomen. RAD/Chest 1 View IMPRESSION: The heart is borderline in size. Decreasing pulmonary vascular congestion/edema. There is no new focal pulmonary opacity identified. Electronically Signed: Kannan Greenberg MD at 5:53 EDT Tel , Service support ,
[2021-05-07 05:35] VITALS: BP 105/78; PULSE 87; RESP 16; O2SAT 100
[2021-05-07 05:42] LABS: Troponin-I HS 8.2 pg/mL (3.0-78.5)
[2021-05-07 06:16] VITALS: BP 121/57; PULSE 88; RESP 18; O2SAT 96
== END 2021-05-07 06:19 | disposition home or self-care (01) ==
PROVIDERS: Emergency Provider Emergency Medicine; PCP Internal Medicine
DX: L89.139 Pressure ulcer of right lower back, unspecified stage (principal); I25.2 Old myocardial infarction; Z86.711 Personal history of pulmonary embolism; Z86.718 Personal history of other venous thrombosis and embolism; Z99.2 Dependence on renal dialysis
CPT/HCPCS: 71045; 80048; 83605; 84484; 85025; 85610; 87040; 93005; 96365; 96366; 96375; 99283; J7030; J7040; A4216

== ENCOUNTER 2021-05-13 23:37 | Observation (INO) | payer MEDICARE, MEDICAID, SELFPAY ==
[2021-05-10 12:38] VITALS: BMI 42.4
[2021-05-13 23:38] VITALS: BP 116/54; PULSE 106; RESP 15; TEMP 37.1; O2SAT 100; BMI 42.9
[2021-05-13 23:41] VITALS: O2SAT 100
[2021-05-14] VITALS (15 sets, daily range): BP systolic 92–116; BP diastolic 39–90; PULSE 77–91; RESP 16–20; TEMP 36.6–37.1; O2SAT 94–100; BMI 41.8
--- NOTE | 2021-05-14 00:09 | EKG12_ITS ---
Test Reason : SOB Blood Pressure : / mmHG Vent. Rate : 099 BPM Atrial Rate : 099 BPM P-R Int : 198 ms QRS Dur : 074 ms QT Int : 358 ms P-R-T Axes : 070 140 063 degrees QTc Int : 459 ms Normal sinus rhythm Low voltage QRS Poor R wave progression Confirmed by ADALGISA STAHL, GOGO ([id number]), managing editor MARGARITO CHANDLER ([id number]) on 05/16/2021 9:56:23 AM Referred By: MICHELLE Confirmed By:GOGO DIANA MD
--- NOTE | 2021-05-14 00:09 | RAD_ITS ---
STUDY: X-RAY CHEST REASON FOR EXAM: Male, 41 years old. chest pain TECHNIQUE: Single AP portable view of the chest. COMPARISON: 05/07/2021. FINDINGS: The lungs are normally expanded with bilateral hazy groundglass opacities and fullness of central markings concerning for pulmonary edema versus pneumonia. There is superimposed bilateral perihilar atelectasis. No distinct pleural effusion. Borderline cardiomegaly. Normal mediastinum and michael. Normal visualized pulmonary arteries. Normal visualized aortic arch and descending thoracic aorta. Normal visualized thoracic spine. Normal visualized ribs, clavicles, and shoulders. There is no demonstrated abnormality of the visualized soft tissue structures of the upper abdomen. RAD/Chest 1 View (Portable) IMPRESSION: Bilateral pulmonary edema versus pneumonia. Electronically Signed: Ivett Alvarez MD at 0:37 EDT , Service support ,
[2021-05-14] MEDS: Aspirin 81 MG TAB.CHEW 324 MG PO (00:22)
[2021-05-14 00:42] LABS: Absolute Neutrophil Count 4.1 X10^3/uL (2.0-7.7); Basophil# 0.01 X10^3/uL; Basophil% 0.2 % (0-1); Eosinophils% 3.6 % (0-5); Hematocrit 32.1 % (40-54); Hemoglobin 9.9 g/dL (13.0-16.5); Lymphocyte % 10.7 % (19-41); Mean Corp Hgb Conc 30.8 g/dL (32-36); Mean Corpuscular Hgb 29.8 pg (27.0-32.0); Mean Corpuscular Volume 96.7 fL (80-94); Mean Platelet Vol. 9.9 fl (6.2-12.0); Monocyte# 0.61 X10^3/uL; Monocyte% 10.9 % (0-10); NRBC Flagged by Analyzer 0 % (0-5); Neutrophil # 4.13 X10^3/uL (2.7-7.7); Neutrophil % 73.9 % (47-70); POSITIVE DIFFERENTIAL YES; POSITIVE MORPHOLOGY YES; Platelet Count 216 K/mm3 (150-450); RBC Distribution Width CV 18.5 % (11.6-14.6); RBC Distribution Width SD 65.6 fl (35.1-43.9); Red Blood Count 3.32 M/mm3 (4.6-6.2); White Blood Count 5.6 K/mm3 (4.4-11.0)
[2021-05-14 00:54] LABS: Differential Indicated SCAN CRITERIA MET
[2021-05-14 01:12] LABS: Anion Gap 8 (5-15); BUN 44 mg/dL (7-18); BUN/Creat Ratio 3.8 RATIO (10-20); Calcium,Total 9.5 mg/dL (8.5-10.1); Chloride 97 mmol/L (98-107); EST Glomerular Filtration Rate 5 mL/min (>60); Est Glom Filt Rate - Afr Amer 6 mL/min (>60); Glucose 94 mg/dL (74-106); Potassium 3.8 mmol/L (3.5-5.1); Sodium Level 135 mmol/L (136-145); Troponin-I HS 9.1 pg/mL (3.0-78.5)
[2021-05-14 01:17] LABS: BNP,B-Type NATRIURETIC PEPTIDE 381.3 pg/mL (0-100)
[2021-05-14] MEDS: Ondansetron 4 MG/2 ML Vial IV (01:30)
[2021-05-14] MEDS: Morphine 4 MG/ML Syringe IV (01:30)
[2021-05-14 01:34] LABS: Anisocytosis 1+
[2021-05-14 02:19] LABS: International Normalized Ratio 1.5; Prothrombin Time (Protime)PT. 17.1 SECONDS (11.7-14.9)
--- NOTE | 2021-05-14 03:26 | HP.PCM.HOS_ITS ---
HPI - General General Date of Admission: 05/14/21 HPI Narrative REJI SPAIN, is a 41 M multiple comorbidities with ESRD on hemodialysis came to ER for worsening of shortness of breath on exertion on Friday morning which progressed to dyspnea at rest. He gets short of breath on laying down, orthopnea therefore he came to ER patient states he could not sleep on Friday night. Chest x-ray shows pulmonary edema. Patient did not miss his dialysis, schedule MWF. Patient also complained of persistent chest pain, diffuse midsternal left- sided shoulder without particular radiation throughout Friday but his troponin is negative. He is asking for frequent morphine to relieve his chest pain in ED. Patient was getting hypoxic, and nauseous when he ambulates, pulse ox dropped to 70s therefore admitted. Twelve-lead EKG shows normal sinus rhythm with low voltage QRS, 99 bpm. QTc 459 ms. INR subtherapeutic 1.5 Coumadin 7.5 mg ordered in ED. BNP elevated 381. Patient is anuric therefore Lasix not given. 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) Central retinal artery occlusion of left eye (10/09/20) Chronic kidney disease-mineral and bone disorder Chronic pelvic pain in male Chronic ulcer of back COVID-19 virus detected (03/20/20) Dialysis patient ESRD on hemodialysis Essential (primary) hypertension Expressive aphasia (04/05/20) Hearing loss Hematuria History of bacterial endocarditis History of blood clots History of non-ST elevation myocardial infarction (NSTEMI) (11/08/19) History of pulmonary embolus (PE) History of venous thromboembolism 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 due to renal insufficiency 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 correction current use of 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 Mechanical complication of arteriovenous fistula surgically created Mitral valve annular calcification Morbidly obese Non compliance w medication regimen Non-healing non-surgical wound Nonrheumatic mitral valve stenosis with insufficiency Obstructive sleep apnea Paroxysmal atrial fibrillation (06/10/20) Paroxysmal atrial flutter 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) Pelvic mass Unspecified symptoms and signs involving cognitive functions and awareness (04/05/20) Home Medications warfarin 7.5 mg PO DAILY 10/06/20 [History Last Taken 02/13/21] brimonidine 1 drp LEFT EYE TID #1 bottle 10/09/20 [Rx Last Taken 02/13/21] amiodarone 200 mg tablet 200 mg PO DAILY #30 tab 03/29/21 [Rx Last Taken Unknown] midodrine 5 mg tablet 5 mg PO TID #90 tab 03/29/21 [Rx Last Taken Unknown] oxycodone 5 mg PO DAILY PRN 04/04/21 [History Last Taken Unknown] Allergy/AdvReac Type Severity Reaction Status Date / Time No Known Allergies Allergy Verified 05/13/21 23:40 Family History Other Adopted Surgical History History of cardioversion (12/02/18) history of cather replacement History of herniorrhaphy History of left heart catheterization (09/17/18) History of repair of congenital cleft palate Mechanical complication of dialysis catheter Status post creation of arteriovenous fistula Social History Smoking Status: Never smoker alcohol intake: never substance use type: marijuana what type of physical activity do you participate in: none ROS ROS Narrative Constitutional: Reports fatigue and weakness HEENT: Left eye blindness. Reports systems reviewed and no addt'l complaints, except as documented Respiratory/Chest: As mentioned in HPI Gastrointestinal: Nauseous. No vomiting. Denies coffee ground emesis, hematemesis or melena. Genitourinary: Denies burning urination or new urinary tract symptoms Musculoskeletal: Reports joint pain and limited range of motion Neurologic: Denies seizure-like activity skin: Wound in the back, on right side paravertebral region. Follows wound care center Endocrinology: Reports systems reviewed and no addt'l complaints, except as documented Hematologic/Lymphatic: Reports systems reviewed and no addt'l complaints, except as documented Rest 12 ROS are negative except as mentioned in HPI Vital Signs Vital Signs Vital Signs: 05/13/21 23:38 05/13/21 23:41 05/14/21 00:36 Temperature 98.7 F Temperature Source Temporal Pulse Rate 106 H Respiratory Rate 15 Respiratory Effort Short of Breath Respiratory Depth Shallow Blood Pressure 116/54 L Blood Pressure Mean 74 Pulse Ox 100 Oxygen Delivery Method Room Air Room Air Room Air 05/14/21 03:20 Temperature 98.0 F Temperature Source Temporal Pulse Rate 90 Respiratory Rate 18 Respiratory Effort Respiratory Depth Blood Pressure 107/90 H Blood Pressure Mean 95 Pulse Ox 100 Oxygen Delivery Method Room Air Weight Weight: 299 lb 2.676 oz Body Mass Index (BMI) 42.9 Physical Exam Narrative General: Alert, Oriented x3, Cooperative HEENT: Atraumatic, PERRLA, EOMI, Normocephalic Oral: No Gingival or Mucosal Lesions/ Ulcerations Neck: Supple, No JVD, Negative Carotid Bruits Lungs: Air entry diminished in bilateral lungs. Bibasilar crepitations present Cardiovascular: Sinus rhythm, Normal S1, Normal S2, systolic murmur over LLSB. Abdomen: Bowel Sounds Present, Soft, Non Tender, Non-Distended : No renal angle tenderness. No suprapubic tenderness. Extremities: 2+ bilateral ankle edema, Capillary Refill Less than 3 Seconds Skin: Chronic wound ulcer on right paravertebral region. Patient refused to take off the dressing. Musculoskeletal: No Tenderness to Palpation of Joints or Extremities Neurological: Cranial nerves II-XII grossly intact, DTR 2+/4 and Symmetrical, Neuro grossly intact Psych/Mental Status: Normal Affect, Appropriate. Results Lab / Micro Data Result Diagrams: 05/14/21 00:30 05/14/21 00:30 Labs: Laboratory Results - last 24 hr 05/14/21 00:30: WBC 5.6, RBC 3.32 L, Hgb 9.9 L, Hct 32.1 L, MCV 96.7 H, MCH 29.8, MCHC 30.8 L, RDW Std Deviation 65.6 H, RDW Coeff of Lance 18.5 H, Plt Count 216, MPV 9.9, Immature Gran % (Auto) 0.700, Neut % (Auto) 73.9 H, Lymph % (Auto) 10.7 L, [place] % (Auto) 10.9 H, Eos % (Auto) 3.6, Baso % (Auto) 0.2, Absolute Neuts (auto) 4.1, Absolute Lymphs (auto) 0.60 L, Nucleated RBC % 0, Anisocytosis 1+ 05/14/21 00:30: PT 17.1 H, INR 1.5 05/14/21 00:30: Sodium 135 L, Potassium 3.8, Chloride 97 L, Carbon Dioxide 30.0, Anion Gap 8, BUN 44 H, Creatinine 11.50 H*, Estim Creat Clear Calc 8.90, Est GFR (MDRD) Af Amer 6 L, Est GFR (MDRD) Non-Af 5 L, BUN/Creatinine Ratio 3.8 L, Glucose 94, Calcium 9.5, Troponin I High Sens 9.1 05/14/21 00:30: B-Natriuretic Peptide 381.3 H Radiology Impression Chest X-Ray 05/14/21 00:09 IMPRESSION: Bilateral pulmonary edema versus pneumonia. Electronically Signed: Ivett Alvarez MD at 0:37 EDT , Service support , Assessment & Plan Assessment/Plan (1) Pulmonary edema: QUALIFIERS: Chronicity: acute Qualified Code(s): J81.0 - Acute pulmonary edema PLAN: 1. Acute pulmonary edema due to acute on chronic diastolic heart failure on ESRD: Patient is being admitted in PCU on observation status. Hemodialysis in the morning. Last 2D echo in September 2020 reported EF 65%, stage II diastolic dysfunction, moderate MR, LA moderately enlarged, moderate TR. 2. Chronic wound on the back: Wound care consult.The patient was last admitted in January 2021 for septic shock secondary to infected wound. Patient follows wound clinic as an outpatient. 3. 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 4. Paroxysmal A. fib: The rate is controlled. Patient on amiodarone. INR subtherapeutic. Coumadin 7.5 mg dose ordered in the morning. Next Coumadin with INR ordered for 05/15 5. Morbid obesity: BMI is 41.9 kg/m?. Counseled for weight reduction 6. Anemia secondary to chronic kidney disease/ESRD: 7. Generally patient has hypotension and is on midodrine. DVT prophylaxis On warfarin as mentioned above CODE STATUS: Full code. Charges/Coding Visit Charges OBSV E&M: 98391 Initial observation care L3
--- NOTE | 2021-05-14 03:56 | ED.VIS.DYS ---
HPI History of Present Illness Chief Complaint: Shortness of Breath Narrative Narrative: 41-year-old male presenting with chest pain and shortness of breath. He does have end-stage renal disease on dialysis as well as history of paroxysmal A. fib and a flutter. Patient states that he said chest pain the entire day as well as dyspnea with exertion. He is concerned that he has volume overload. He does dialysis Friday and Friday and is scheduled for dialysis tomorrow. Patient denies fever, chills. Patient is on Coumadin. 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) Central retinal artery occlusion of left eye (10/09/20) Chronic kidney disease-mineral and bone disorder Chronic pelvic pain in male Chronic ulcer of back COVID-19 virus detected (03/20/20) Dialysis patient ESRD on hemodialysis Essential (primary) hypertension Expressive aphasia (04/05/20) Hearing loss Hematuria History of bacterial endocarditis History of blood clots History of non-ST elevation myocardial infarction (NSTEMI) (11/08/19) History of pulmonary embolus (PE) History of venous thromboembolism 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 due to renal insufficiency 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 Mechanical complication of arteriovenous fistula surgically created Mitral valve annular calcification Morbidly obese Non compliance w medication regimen Non-healing non-surgical wound Nonrheumatic mitral valve stenosis with insufficiency Obstructive sleep apnea Paroxysmal atrial fibrillation (06/10/20) Paroxysmal atrial flutter 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) Pelvic mass Unspecified symptoms and signs involving cognitive functions and awareness (04/05/20) Home Medications warfarin 7.5 mg PO DAILY 10/06/20 [History Last Taken 02/13/21] brimonidine 1 drp LEFT EYE TID #1 bottle 10/09/20 [Rx Last Taken 02/13/21] amiodarone 200 mg tablet 200 mg PO DAILY #30 tab 03/29/21 [Rx Last Taken Unknown] midodrine 5 mg tablet 5 mg PO TID #90 tab 03/29/21 [Rx Last Taken Unknown] oxycodone 5 mg PO DAILY PRN 04/04/21 [History Last Taken Unknown] Allergy/AdvReac Type Severity Reaction Status Date / Time No Known Allergies Allergy Verified 05/13/21 23:40 Family History Other Adopted Surgical History History of cardioversion (12/02/18) history of cather replacement History of herniorrhaphy History of left heart catheterization (09/17/18) History of repair of congenital cleft palate Mechanical complication of dialysis catheter Status post creation of arteriovenous fistula Social History Smoking Status: Never smoker alcohol intake: never substance use type: marijuana what type of physical activity do you participate in: none ROS ROS ED Constitutional Constitutional ED: Denies chills or fever(s) Eyes Eyes: Denies blurry vision or diplopia ENT ENT ED: Denies rhinorrhea or sore throat Cardiovascular Cardiovascular: Reports chest pain and racing heartbeat Respiratory/Chest Respiratory/Chest: Reports dyspnea and dyspnea on exertion Gastrointestinal Gastrointestinal: Reports nausea and vomiting; Denies abdominal pain Genitourinary Genitourinary ED: Denies dysuria or hematuria Musculoskeletal Musculoskeletal: Denies arthralgias or myalgias Integumentary Denies Abrasions or rash Neurologic Neurologic: Denies headache(s) or paresthesias EXAM Physical Exam Const Vital Signs: 05/13/21 23:38 05/13/21 23:41 05/14/21 00:36 Temperature 98.7 F Temperature Source Temporal Pulse Rate 106 H Respiratory Rate 15 Respiratory Effort Short of Breath Respiratory Depth Shallow Blood Pressure 116/54 L Blood Pressure Mean 74 Pulse Ox 100 Oxygen Delivery Method Room Air Room Air Room Air 05/14/21 03:20 Temperature 98.0 F Temperature Source Temporal Pulse Rate 90 Respiratory Rate 18 Respiratory Effort Respiratory Depth Blood Pressure 107/90 H Blood Pressure Mean 95 Pulse Ox 100 Oxygen Delivery Method Room Air Positive obese General Appearance ED: NAD; Negative for pallor Nutritional Appearance: obese HEENT Reports moist mucous membranes atraumatic Eyes PERRL and EOMs intact bilaterally Resp normal respiratory effort and clear to auscultation bilaterally Cardio regular rate Rate: tachycardic Extremity General Extremety ED: Yes edema; Negative for tenderness General Extremity: edema Neuro oriented x3 Sensorium / Orientation: alert Psych mental status grossly normal Thought Process: normal thought process Skin General Skin Exam: Negative for jaundice or pallor MDM MDM MDM Narrative Medical decision making narrative: Patient presenting with chest pain and shortness. Given the patient's medical history I did obtain an EKG which is sinus rhythm with a ventricular rate of 99 bpm without signs of ST elevation or depression on my interpretation. Chest x-ray on my interpretation shows bilateral pulmonary edema and the radiologist does agree there is speculation as to whether this could be pneumonia. Patient does not have a white blood cell count elevation. Renal function is as expected for end-stage renal disease on dialysis. INR slightly subtherapeutic at 1.5. BNP elevated at 381. Patient was given morphine and Zofran for pain. His initial troponin is 9.1. Given that he has had chest pain most of the day I do not believe this is ACS. Patient stating that he is to short of breath to ambulate and becomes hypoxic as well as getting nauseous and vomiting when he ambulates. He was ambulated in the ER and dropped into the 70s. He was symptomatic. He does not typically wear O2. Given his hypoxia I believe he will need to be admitted as he does not have a way to get to dialysis given his symptoms. Patient was amenable to this plan. I discussed all findings with the hospitalist that he recommended giving 7.5 mg of Coumadin for his subtherapeutic INR. Patient transferred to the floor in stable condition. Impression: 1 chest pain 2. History of end-stage renal disease on dialysis 3. Hypoxia 4. Pulmonary edema Lab Data Attestation: I reviewed the patient's lab results. Labs: Laboratory Results - last 24 hr 05/14/21 05/14/21 05/14/21 00:30 00:30 00:30 WBC 5.6 RBC 3.32 L Hgb 9.9 L Hct 32.1 L MCV 96.7 H MCH 29.8 MCHC 30.8 L RDW Std Deviation 65.6 H RDW Coeff of Lance 18.5 H Plt Count 216 MPV 9.9 Immature Gran % (Auto) 0.700 Neut % (Auto) 73.9 H Lymph % (Auto) 10.7 L [place]mullen % (Auto) 10.9 H Eos % (Auto) 3.6 Baso % (Auto) 0.2 Absolute Neuts (auto) 4.1 Absolute Lymphs (auto) 0.60 L Nucleated RBC % 0 Anisocytosis 1+ PT 17.1 H INR 1.5 Sodium 135 L Potassium 3.8 Chloride 97 L Carbon Dioxide 30.0 Anion Gap 8 BUN 44 H Creatinine 11.50 H* Estim Creat Clear Calc 8.90 Est GFR (MDRD) Af Amer 6 L Est GFR (MDRD) Non-Af 5 L BUN/Creatinine Ratio 3.8 L Glucose 94 Calcium 9.5 Troponin I High Sens 9.1 B-Natriuretic Peptide 05/14/21 00:30 WBC RBC Hgb Hct MCV MCH MCHC RDW Std Deviation RDW Coeff of Lance Plt Count MPV Immature Gran % (Auto) Neut % (Auto) Lymph % (Auto) [place] % (Auto) Eos % (Auto) Baso % (Auto) Absolute Neuts (auto) Absolute Lymphs (auto) Nucleated RBC % Anisocytosis PT INR Sodium Potassium Chloride Carbon Dioxide Anion Gap BUN Creatinine Estim Creat Clear Calc Est GFR (MDRD) Af Amer Est GFR (MDRD) Non-Af BUN/Creatinine Ratio Glucose Calcium Troponin I High Sens B-Natriuretic Peptide 381.3 H Radiography Diagnostic Testing: Radiology Impression Chest X-Ray 05/14/21 00:09 IMPRESSION: Bilateral pulmonary edema versus pneumonia. Electronically Signed: Ivett Alvarez MD at 0:37 EDT , Service support , Discharge Plan Disposition Disposition: Acute Care Hospital [facility] Discharge Date/Time: 05/14/21 04:06
[2021-05-14] MEDS: Morphine 2 MG/ML Syringe IV ×2 (05:08→21:07)
[2021-05-14] MEDS: 0.9% Saline Lock 10 ML Syringe IV (05:08)
[2021-05-14 08:17] LABS: Anion Gap 11 (5-15); BUN 42 mg/dL (7-18); BUN/Creat Ratio 3.5 RATIO (10-20); Calcium,Total 9.3 mg/dL (8.5-10.1); Chloride 97 mmol/L (98-107); EST Glomerular Filtration Rate 5 mL/min (>60); Est Glom Filt Rate - Afr Amer 6 mL/min (>60); Estimated Creatinine Clearance 8.46 ml/min; Glucose 103 mg/dL (74-106); Magnesium 2.3 mg/dL (1.6-2.6); Phosphorus 7.4 mg/dL (2.5-4.9); Sodium Level 136 mmol/L (136-145); Troponin-I HS 9.7 pg/mL (3.0-78.5)
[2021-05-14] MEDS: oxyCODONE 5 MG Tablet PO (08:38)
--- NOTE | 2021-05-14 09:29 | CON.PCM.RE_ITS ---
Assessment & Plan Assessment/Plan (1) Pulmonary edema: QUALIFIERS: Chronicity: acute Qualified Code(s): J81.0 - Acute pulmonary edema PLAN: We will plan for hemodialysis today with 3 to 4 L ultrafiltration as tolerated (2) ESRD on hemodialysis: PLAN: Patient is Friday schedule for hemodialysis. We will arrange for hemodialysis in today as per the chronic order. (3) Essential (primary) hypertension: PLAN: Blood pressure is well controlled. Continue same home blood pressure medications HPI Consult Data Date of Consult: 05/14/21 HPI Narrative HPI Narrative: REJI SPAIN, is a 41 M past likely history of end-stage renal disease on Friday hemodialysis cannula. Patient presented yesterday with shortness of breath along with chest pain radiates to shoulder. Patient did not missed hemodialysis session Friday. Patient is feeling better now. Hemodialysis is planned for today. 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) Central retinal artery occlusion of left eye (10/09/20) Chronic kidney disease-mineral and bone disorder Chronic pelvic pain in male Chronic ulcer of back COVID-19 virus detected (03/20/20) Dialysis patient ESRD on hemodialysis Essential (primary) hypertension Expressive aphasia (04/05/20) Hearing loss Hematuria History of bacterial endocarditis History of blood clots History of non-ST elevation myocardial infarction (NSTEMI) (11/08/19) History of pulmonary embolus (PE) History of venous thromboembolism 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 due to renal insufficiency 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 Mechanical complication of arteriovenous fistula surgically created Mitral valve annular calcification Morbidly obese Non compliance w medication regimen Non-healing non-surgical wound Nonrheumatic mitral valve stenosis with insufficiency Obstructive sleep apnea Paroxysmal atrial fibrillation (06/10/20) Paroxysmal atrial flutter 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) Pelvic mass Unspecified symptoms and signs involving cognitive functions and awareness (04/05/20) Home Medications warfarin 7.5 mg PO DAILY 10/06/20 [History Last Taken 02/13/21] brimonidine 1 drp LEFT EYE TID #1 bottle 10/09/20 [Rx Last Taken 02/13/21] amiodarone 200 mg tablet 200 mg PO DAILY #30 tab 03/29/21 [Rx Last Taken Unknown] midodrine 5 mg tablet 5 mg PO TID #90 tab 03/29/21 [Rx Last Taken Unknown] oxycodone 5 mg PO DAILY PRN 04/04/21 [History Last Taken Unknown] Allergy/AdvReac Type Severity Reaction Status Date / Time No Known Allergies Allergy Verified 05/13/21 23:40 Family History Other Adopted Surgical History History of cardioversion (12/02/18) history of cather replacement History of herniorrhaphy History of left heart catheterization (09/17/18) History of repair of congenital cleft palate Mechanical complication of dialysis catheter Status post creation of arteriovenous fistula Social History Smoking Status: Never smoker alcohol intake: never substance use type: marijuana what type of physical activity do you participate in: none Physical Exam Narrative Patient is awake alert oriented. Head atraumatic normocephalic. Eye: Normal conjunctiva Mouth. Wet mucosa Heart S1-S2 RRR. Chest : Bilateral crackles. Abdomen. No tenderness. Soft bowel sounds Neurology: Awake alert oriented no focals Extremity: + Edema of lower extremity Lab / Micro Data Result Diagrams: 05/14/21 00:30 05/14/21 07:26 Labs: Laboratory Results - last 24 hr 05/14/21 00:30: WBC 5.6, RBC 3.32 L, Hgb 9.9 L, Hct 32.1 L, MCV 96.7 H, MCH 29.8, MCHC 30.8 L, RDW Std Deviation 65.6 H, RDW Coeff of Lance 18.5 H, Plt Count 216, MPV 9.9, Immature Gran % (Auto) 0.700, Neut % (Auto) 73.9 H, Lymph % (Auto) 10.7 L, [place] % (Auto) 10.9 H, Eos % (Auto) 3.6, Baso % (Auto) 0.2, Absolute Neuts (auto) 4.1, Absolute Lymphs (auto) 0.60 L, Nucleated RBC % 0, Anisocytosis 1+ 05/14/21 00:30: PT 17.1 H, INR 1.5 05/14/21 00:30: Sodium 135 L, Potassium 3.8, Chloride 97 L, Carbon Dioxide 30.0, Anion Gap 8, BUN 44 H, Creatinine 11.50 H*, Estim Creat Clear Calc 8.90, Est GFR (MDRD) Af Amer 6 L, Est GFR (MDRD) Non-Af 5 L, BUN/Creatinine Ratio 3.8 L, Glucose 94, Calcium 9.5, Troponin I High Sens 9.1 05/14/21 00:30: B-Natriuretic Peptide 381.3 H 05/14/21 07:26: Sodium 136, Potassium 4.0, Chloride 97 L, Carbon Dioxide 28.0, Anion Gap 11, BUN 42 H, Creatinine 12.10 H*, Estim Creat Clear Calc 8.46, Est GFR (MDRD) Af Amer 6 L, Est GFR (MDRD) Non-Af 5 L, BUN/Creatinine Ratio 3.5 L, Glucose 103, Calcium 9.3, Phosphorus 7.4 H, Magnesium 2.3, Troponin I High Sens 9.7 Radiology Impression Chest X-Ray 05/14/21 00:09 IMPRESSION: Bilateral pulmonary edema versus pneumonia. Electronically Signed: Ivett Alvarez MD at 0:37 EDT , Service support ,
--- NOTE | 2021-05-14 11:36 | CASEMGMT ---
Per Dr. Fernandes, pt to have dialysis prior to discharge to see if symptoms improve. Pt is still on 2L nc at this time. CM to follow. Glo RAMOS CM
--- NOTE | 2021-05-14 11:56 | NURSING ---
wound photo: right lower back
[2021-05-14] MEDS: Heparin 10,000 UNITS/10 ML Vial 14000 UNITS IV (13:09)
[2021-05-14] MEDS: Midodrine HCl 5 MG Tablet PO ×2 (13:26→21:01)
--- NOTE | 2021-05-14 15:05 | CHAPLAIN ---
Type of Pastoral Visit _x__ Initial Visit ___ Follow-up Visit ___ On-call Visit ___ General Patient Visit ___ Spiritual Assessment ___ Family Conference ___ Bereavement ___ Rapid Response ___ Code Blue ___ Other (describe below) Pastoral Care Referral From _x__ Patient ___ Family ___ Nurse ___ Physician ___ Insurance Agents Supervisor ___ Signing Teacher ___ Other (describe below) Sacrament/Intervention ___ Active listening ___ Anointing ___ Mormonism ___ Bereavement ___ Communion ___ Layla exploration ___ ___ Life review ___ Prayer ___ Reconciliation ___ Sacrament of Sick ___ Supportive presence ___ Wedding ___ Other (describe below) Pastoral Comments patient is receiving dialysis at this time and requests visit tomorrow
--- NOTE | 2021-05-14 17:29 | DIALYSIS ---
HD x 4 hours complete. Tolerated tx well. Ran on 3k bath. UF of 4000ml. Used right thigh graft. [place] removed post tx and pressure applied x 10 minutes. Hemostasis achieved. Fresh gauze and tape applied. Report was given to RACHEL Mckeon.
[2021-05-14] MEDS: Amiodarone 200 MG Tablet PO (17:31)
--- NOTE | 2021-05-14 17:31 | PN.HOSP_ITS ---
Subjective Subjective Patient seen and examined. He was admitted with a complaint of shortness of breath which started about 2 days prior to admission and gradually worsened. He had associated orthopnea. Chest x-ray showed pulmonary edema. Patient had been compliant with his dialysis sessions on Wednesdays and could not tell me how much fluid was taken off at his last dialysis session before admission. Nephrology has been consulted and he is for dialysis today. Of note he also complained of chest pain which was diffuse and midsternal as well as left-sided with no significant radiation. He seemed to be relieved by morphine. He has no complaints at time of review this morning. Chest pain seems to reproducible with palpation. Shortness of breath that improved. Review of systems otherwise negative. He is for dialysis this morning. He has remained hemodynamically stable. Objective Data Objective Data Vital Signs: Vital Signs Temp Pulse Resp BP Pulse Ox 98.1 F 82 16 96/67 99 05/14/21 15:36 05/14/21 17:30 05/14/21 15:36 05/14/21 17:30 05/14/21 15:36 Oxygen Flow Rate (L/min) 2 Oxygen Delivery Method Nasal Cannula Weight: 291 lb 10.745 oz Body Mass Index (BMI) 41.8 Intake & Output: Intake and Output for Last 24 Hours 05/12/21 05/13/21 05/14/21 23:59 23:59 23:59 Intake Total 360 / 360 Balance 360 / 360 Lab / Micro Data Result Diagrams: 05/14/21 00:30 05/14/21 07:26 Labs: Laboratory Results - last 24 hr 05/14/21 00:30: WBC 5.6, RBC 3.32 L, Hgb 9.9 L, Hct 32.1 L, MCV 96.7 H, MCH 29.8, MCHC 30.8 L, RDW Std Deviation 65.6 H, RDW Coeff of Lance 18.5 H, Plt Count 216, MPV 9.9, Immature Gran % (Auto) 0.700, Neut % (Auto) 73.9 H, Lymph % (Auto) 10.7 L, [place] % (Auto) 10.9 H, Eos % (Auto) 3.6, Baso % (Auto) 0.2, Absolute Neuts (auto) 4.1, Absolute Lymphs (auto) 0.60 L, Nucleated RBC % 0, Anisocytosis 1+ 05/14/21 00:30: PT 17.1 H, INR 1.5 05/14/21 00:30: Sodium 135 L, Potassium 3.8, Chloride 97 L, Carbon Dioxide 30.0, Anion Gap 8, BUN 44 H, Creatinine 11.50 H*, Estim Creat Clear Calc 8.90, Est GFR (MDRD) Af Amer 6 L, Est GFR (MDRD) Non-Af 5 L, BUN/Creatinine Ratio 3.8 L, Glucose 94, Calcium 9.5, Troponin I High Sens 9.1 05/14/21 00:30: B-Natriuretic Peptide 381.3 H 05/14/21 07:26: Sodium 136, Potassium 4.0, Chloride 97 L, Carbon Dioxide 28.0, Anion Gap 11, BUN 42 H, Creatinine 12.10 H*, Estim Creat Clear Calc 8.46, Est GFR (MDRD) Af Amer 6 L, Est GFR (MDRD) Non-Af 5 L, BUN/Creatinine Ratio 3.5 L, Glucose 103, Calcium 9.3, Phosphorus 7.4 H, Magnesium 2.3, Troponin I High Sens 9.7 Radiography Diagnostic Testing: Radiology Impression Chest X-Ray 05/14/21 00:09 IMPRESSION: Bilateral pulmonary edema versus pneumonia. Electronically Signed: Ivett Alvarez MD at 0:37 EDT , Service support , Physical Exam Const alert, oriented x3 and no apparent distress Exam Limitations: no limitations Nutritional Appearance: obese HEENT head/scalp atraumatic, moist oral mucous membranes and oropharynx normal Head and Scalp: normocephalic Eyes PERRL, EOMs intact bilaterally and conjunctivae normal Neck no lymphadenopathy and supple Resp Resp Narrative: diminished breath sounds bibasally, no wheezes, no crackles. on 2L of oxygen Cardio regular rate, regular rhythm, S1 normal heart sound, S2 normal heart sound and no murmurs GI normal to inspection, nondistended, normoactive bowel sounds, soft to palpation, non-tender and non-distended Extremity normal to inspection, full ROM and no clubbing, cyanosis or edema Extremity Narrative: AV fistula in left thigh Peripheral Pulses: Yes pulses 2+ throughout Neuro oriented x3, CN's II-XII intact bilaterally and moves all extremities Sensorium / Orientation: awake and alert Psych affect normal Assessment & Plan Assessment/Plan (1) Pulmonary edema: QUALIFIERS: Chronicity: acute Qualified Code(s): J81.0 - Acute pulmonary edema PLAN: #Acute hypoxic respiratory insufficiency due to acute pulmonary edema * This is likely due to fluid overload from ESRD. * Nephrology consulted. Patient to have dialysis today. * Most recent 2D echo was in September 2020 which showed EF of 65% with stage II diastolic dysfunction. * #Chest pain * This seems to be reproducible with palpation, therefore seems to be musculoskeletal. high sensitivity Troponins x 3 were negative. * On IV morphine as needed * #ESRD: On hemodialysis Wednesdays and Fridays. Nephrology consulted. #Paroxysmal A. fib: On amiodarone. INR was 1.5. Continue Coumadin. To receive 7.5 mg Coumadin today. #Chronic back wound: Wound care consulted. #Morbid obesity: BMI is 41. Complicates acute care, prognosis and expected recovery. DVT prophylaxis: on coumadin. Charges/Coding Visit Charges Inpatient E&M: 21098 Subs Hosp L2
--- NOTE | 2021-05-14 19:52 | NURSING ---
Pandemic charting in use
[2021-05-14] MEDS: BRIMONIDINE 0.2% 5ML BOTTLE 1 DRP LEFT EYE (21:01)
[2021-05-15 03:00] VITALS: BP 117/51; PULSE 83; PULSE 85; RESP 18; TEMP 36.8; O2SAT 100
[2021-05-15] MEDS: Morphine 2 MG/ML Syringe IV (03:01)
[2021-05-15] MEDS: 0.9% Saline Lock 10 ML Syringe IV (03:01)
[2021-05-15] MEDS: oxyCODONE 5 MG Tablet PO ×2 (04:23→09:14)
[2021-05-15] MEDS: Midodrine HCl 5 MG Tablet PO (05:29)
[2021-05-15] MEDS: BRIMONIDINE 0.2% 5ML BOTTLE 1 DRP LEFT EYE (05:29)
[2021-05-15 05:38] LABS: International Normalized Ratio 1.5
[2021-05-15 07:00] VITALS: PULSE 89
[2021-05-15 07:33] VITALS: O2SAT 95
[2021-05-15 09:00] VITALS: BP 125/68; PULSE 92; RESP 18; TEMP 36.5; O2SAT 98
[2021-05-15] MEDS: Amiodarone 200 MG Tablet PO (09:16)
--- NOTE | 2021-05-15 09:28 | PCM.PN.REN ---
Subjective Subjective no SOB. No CP No nausea No vomiting Objective Data Objective Data Vital Signs: Vital Signs Temp Pulse Resp BP Pulse Ox 97.7 F L 92 18 125/68 H 98 05/15/21 09:00 05/15/21 09:00 05/15/21 09:00 05/15/21 09:00 05/15/21 09:00 Oxygen Flow Rate (L/min) 2 Oxygen Delivery Method Room Air Weight: 132.3 kg Body Mass Index (BMI) 41.8 Intake & Output: Intake and Output for Last 24 Hours 05/13/21 05/14/21 05/15/21 23:59 23:59 23:59 Intake Total 960 / 1460 700 / 700 Output Total 0 / 0 Balance 960 / 1460 700 / 700 Lab / Micro Data Result Diagrams: 05/14/21 00:30 05/14/21 07:26 Labs: Laboratory Results - last 24 hr 05/15/21 05:02: PT 17.0 H, INR 1.5 Physical Exam Narrative Patient is awake alert oriented. Head atraumatic normocephalic. Eye: Normal conjunctiva Mouth. Wet mucosa Heart S1-S2 RRR. Chest : CTA. Abdomen. No tenderness. Soft bowel sounds Neurology: Awake alert oriented no focals Extremity: + Edema of lower extremity Assessment & Plan Assessment/Plan (1) Pulmonary edema: QUALIFIERS: Chronicity: acute Qualified Code(s): J81.0 - Acute pulmonary edema PLAN: improved with 4L UF yesterday No need for UF today (2) ESRD on hemodialysis: PLAN: Patient is Friday schedule for hemodialysis. next HD session tomorrow (3) Essential (primary) hypertension: PLAN: Blood pressure is well controlled. Continue same home blood pressure medications
--- NOTE | 2021-05-15 09:49 | PCM.DC.SUM ---
Providers Date of Admission: 05/14/21 Primary Care Physician: Dr. Pawel Banda MD Consultations 05/14/21 04:52 Consult: Neurology Routine Consulting Provider: Tameka Melendez Reason for Consult: ESRD ON HD, Pulm edema EMERGENT Consult: No MD Notified: Yes Date Notified: 05/14/21 Time Notified: 08:22 Method of Notification: Answering Service 05/14/21 05:05 Consult: Onc/Wound/mold forms builder Routine Comment: 05/14/21 05:12 Consult: Onc/Wound/mold forms builder Routine Comment: Reason for Consult:: large ulcer in the back. Reason For Visit: PULM EDEMA ON HD Diagnosis Discharge Diagnosis (1) Pulmonary edema: Status: Acute Code(s): J81.1 - Chronic pulmonary edema Qualifiers: Chronicity: acute Qualified Code(s): J81.0 - Acute pulmonary edema (2) ESRD on hemodialysis: Status: Chronic Code(s): N18.6 - End stage renal disease; Z99.2 - Dependence on renal dialysis (3) Essential (primary) hypertension: Status: Chronic Code(s): I10 - Essential (primary) hypertension Medications at Discharge Home Medications warfarin 7.5 mg PO DAILY 10/06/20 brimonidine 1 drp LEFT EYE TID #1 bottle 10/09/20 amiodarone 200 mg tablet 200 mg PO DAILY #30 tab 03/29/21 midodrine 5 mg tablet 5 mg PO TID #90 tab 03/29/21 oxycodone 5 mg PO DAILY PRN 04/04/21 Hospital Course Operations None Procedures Dialysis Summary of Care Provided Minutes Spent on Discharge: 45 Hospital Course: Patient is a 41 y/o male with a PMH as outlined including ESRD on hemodialysis who was admitted with a complaint of worsening shortness of breath, with associated orthopnea and PND. CXR on admission showed evidence of pulmonary edema. He claimed adherence with his dialysis schedule. He also complained of ches t pain which was reproducible with palpation. Troponins x 3 were negative and EKG showed no acute ST changes. He was admitted and managed for shortness of breath due to pulmonary edema. Nephrology was consulted. He had dialysis on 05/14/2021. His chest pain didnt recur. His shortness of breath resolved after dialysis, and he remained stable and was discharged home on 05/15/2021. Patient's INR was subtherapeutic at 1.5, and he was counseled to be compliant with his coumadin, and to follow up with his PCP for INR check in 1-2 days. Patient was seen and examined prior to discharge. He felt well and had no active complaints and was ready to be discharged home. Review of systems otherwise negative. Labs and vitals reviewed. Home medication reviewed and reconciled. Physical Exam Const alert, oriented x3 and no apparent distress General Appearance: cooperative and comfortable Exam Limitations: no limitations Nutritional Appearance: obese HEENT normocephalic, head/scalp atraumatic, moist oral mucous membranes and oropharynx normal Eyes PERRL, EOMs intact bilaterally and conjunctivae normal Neck no lymphadenopathy and supple Resp Resp Narrative: diminished breath sounds bibasally, no wheezes, no crackles. on 2L of oxygen Cardio regular rate, regular rhythm, S1 normal heart sound, S2 normal heart sound and no murmurs GI normal to inspection, nondistended, normoactive bowel sounds, soft to palpation, non-tender and non-distended Extremity normal to inspection, full ROM and no clubbing, cyanosis or edema Extremity Narrative: AV fistula in left thigh Neuro oriented x3, CN's II-XII intact bilaterally and moves all extremities Sensorium / Orientation: awake and alert Psych affect normal Weight / BMI Weight Weight: 291 lb 10.745 oz Body Mass Index (BMI) 41.8 ABG / Lab / Microbiology Data Result Diagrams: 05/14/21 00:30 05/14/21 07:26 Laboratory: Laboratory Results - last 24 hr 05/15/21 05:02: PT 17.0 H, INR 1.5 D/C Instructions Discharge Diet: Renal Diet Discharge Activity: Return to Normal Activity Weight Bearing Status: Weight bearing as tolerated Call your doctor if you observe: Fever of 101 or Higher, Shortness of breath, Swelling in the ankles, Chest pain and Increased palpitations (irregular heartbeat) Meaningful Use Info Meaningful Use Diagnoses (Choose all that apply): None applicable Discharge Plan Admission Admit Date/Time: 05/14/21 04:48 Primary Reason for Your Visit: acute pulmonary edema Attending Provider: Bree Fernandes Primary Care Provider: Pawel Banda Consulting Providers: Tameka Melendez Instructions Patient Instructions: Pulmonary Edema, ED Chest Pain, Noncardiac Additional Instructions / Restrictions: follow up with PCP in 1-2 days for INR check as INR is subtherapeutic. Discharge Orders/Prescriptions Prescriptions: Continued warfarin 5 MG tablet 7.5 mg PO DAILY RF: 0 brimonidine 1 DROP bottle 1 drp LEFT EYE TID Qty: 1 RF: 0 oxycodone 5 mg Capsule 5 mg PO DAILY PRN (Reason: Pain) RF: 0 amiodarone [Pacerone] 200 mg tablet 200 mg PO DAILY Qty: 30 RF: 3 midodrine 5 mg tablet 5 mg PO TID Qty: 90 RF: 3 Referrals / Follow Up: Pawel Banda MD [Primary Care Provider] - In 1 Week Tameka Melendez MD [STAFF PHYSICIAN] - In 1 Week Disposition Disposition (needs filled in before D/C Order can be placed): Home, Self Care Charges/Coding Visit Charges Inpatient E&M: 39230 Disch Hosp
== END 2021-05-15 10:06 | disposition home or self-care (01) ==
LOC: ED 05-14 01:53 → PCU 05-14 04:56
PROVIDERS: Admitting Provider Internal Medicine; Emergency Provider Student in an Organized Health Care Education/Training Program; PCP Internal Medicine; Visit Provider Student in an Organized Health Care Education/Training Program
DX: J81.0 Acute pulmonary edema (principal); J81.1 Chronic pulmonary edema; I50.33 Acute on chronic diastolic (congestive) heart failure; Z99.2 Dependence on renal dialysis; I13.2 Hypertensive heart and chronic kidney disease with heart failure and with stage 5 chronic kidney disease, or end stage renal disease; N18.6 End stage renal disease; Z79.899 Other long term (current) drug therapy; Z79.01 Long term (current) use of 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s; D63.1 Anemia in chronic kidney disease; Z86.16 Personal history of COVID-19; I25.2 Old myocardial infarction; Z86.711 Personal history of pulmonary embolism; N25.81 Secondary hyperparathyroidism of renal origin; I48.0 Paroxysmal atrial fibrillation; G47.33 Obstructive sleep apnea (adult) (pediatric); H54.62 Unqualified visual loss, left eye, normal vision right eye; E66.01 Morbid (severe) obesity due to excess calories; Z68.41 Body mass index [BMI] 40.0-44.9, adult; R09.02 Hypoxemia; I48.92 Unspecified atrial flutter
CPT/HCPCS: 36415; 71045; 80048; 83735; 83880; 84100; 84484; 85025; 85610; 90937; 93005; 96374; 96375; 96376; 97802; 99218; 99251; 99285; J7030; A4216; G0257; G0378; G0463; J2405

== ENCOUNTER 2021-05-24 08:00 | Outpatient (RCR) | payer MEDICARE, MEDICAID, SELFPAY ==
[2021-04-26 16:49] VITALS: BMI 40.1
[2021-04-29 00:30] VITALS: BP 118/70; PULSE 99; RESP 18; TEMP 35.8
[2021-05-03 09:28] VITALS: BP 110/67; PULSE 81; TEMP 37; BMI 40.1
--- NOTE | 2021-05-03 11:53 | PN.PCM_ITS ---
History of Present Illness Date of Service: 05/03/21 Chief Complaint: follow up R lower Back wound History of Wound: Mr. Weston is a 41 well known to me and who is currently a [facility] to [facility] due to conflicting dates for Wound care and dialysis. He has been seen her for right sided back wound. Currently in the fold of his right back. Initial assumption after ER visit was for shingles. He has been receiving care here and is currently on Epifix weekly. He reports more pain in the area and was recently at the ER. At this time, he denies chills, fever, nausea or vomiting. Subjective Subjective Still reports a lot of pain in the area. Culture with minimal growth. Has had 5 applications of Epifix with progressive worsening of the Ulcer. Objective Data Objective Data Vital Signs: Vital Signs Temp Pulse Resp BP 98.6 F 81 18 110/67 05/03/21 09:28 05/03/21 09:28 04/29/21 00:30 05/03/21 09:28 Weight: 289 lb Body Mass Index (BMI) 40.1 Charges/Coding Procedures Integumentary 111xxx-113xx: 44811 Yany subq tissue 20 sq cm/< Physical Exam Const alert, oriented x3 and no apparent distress General Appearance: cooperative, comfortable and well kempt HEENT normocephalic and head/scalp atraumatic Head and Scalp: normal to inspection, normocephalic and atraumatic Resp normal respiratory effort Effort and Inspection: able to speak in complete sentences Skin Wounds: wounds noted Neuro oriented x3, CN's II-XII intact bilaterally and moves all extremities Psych mental status grossly normal Appearance: grossly normal Attitude: calm Activity / Motor Behavior: appropriate eye contact Debridement Note Debridement Note Post-Debridement Measurements and Additional Note: Post-Debridement Tequila surements/Treatment GRISELDA - Nurse 1 - General Ulcer Assessment Start: 05/03/21 09:28 Freq: Status: Active Protocol: FAISAL Activity Type Activity Date Activity User E-Sign Co-Sign Detail Recorded Client Recorded Date Recorded By Document 05/03/21 09:28 TIGRE [id number] 05/03/21 09:42 TIGRE 05/03/21 09:28 GRISELDA - Today's Visit Information Type of service Follow-up Visit (Physician/KITCHEN AND COUNTER WORKER ) Arrival Mode Ambulatory Patient Identification Verified (Name & Yes ) Patient Requires Transmission-Based No Precautions Height and Weight Body Mass Index (BMI) 40.1 BMI Classification Obese Vital Signs Temperature (97.8 F-99.1 F) 98.6 F Temperature Source Temporal Pulse Rate (60-100) 81 Pulse Location Monitor Blood Pressure (90/60-120/80) 110/67 Blood Pressure Mean (mm Hg) 81 Source Monitor History Since Last Visit- (Skip if this is Patient's initial visit) Have you changed medications since your No last visit? Any new allergies or adverse reactions No Had a fall/change in ADL's that may No increase risk of falls Signs or symptoms of abuse and/or No neglect since last visit Have you been in the hospital since your Yes last visit? Has dressing in place as prescribed Yes Has compression in place as prescribed N/A Has offloadiing in place as prescribed N/A Experienced any changes in pain level or Yes management Left Footwear Regular Shoe Right Footwear Regular Shoe WC - Nurse 1 - General Ulcer Measurement Start: 05/03/21 09:28 Freq: Status: Active Protocol: Activity Type Activity Date Activity User E-Sign Co-Sign Detail Recorded Client Recorded Date Recorded By Document 05/03/21 09:28 TIGRE [id number] 05/03/21 09:42 TIGRE 05/03/21 09:28 Wound Center Nurse 1 #2 right lower back -Combined with other wound No -Current Size (cm) - Length 4 -Current Size (cm) - Width 5.8 -Current Size (cm) - Depth 0.1 -Total Square Cm 23.2 -Photo Taken No -Epithelialization None Present -Tunneling No -Undermining/Tunneling No -Circular Undermining No -Exudate Type Serosanguineous -Wound Margin Distinct, Outline Attached -Granulation Amt Medium (34-66%) -Granulation Quality Red -Slough/Fibrin Yes -Necrosis Amt Large (67-100%) -Necrotic Tissue Type Adherent Slough -Texture (Skye-wound Skin Appearance) No Abnormality, Assessed -Moisture (Skye-wound Skin Appearance) No Abnormality, Assessed -Color (Skye-wound Skin Appearance) No Abnormality, Assessed -Temperature (Skye-wound Skin No Abnormality Appearance) (Pt Warm) -Tenderness on Palpation (Skye-wound Yes: extremely Skin Appearance) sensitive -Ulcer Cleansing soap and water -Foul Odor after Cleansing No -Anesthetic Used 4% Lidocaine Solution,5% Lidocaine Gel - Nurse 2 - General Ulcer CM Notes Start: 05/03/21 09:28 Freq: Status: Active Protocol: Activity Type Activity Date Activity User E-Sign Co-Sign Detail Recorded Client Recorded Date Recorded By Document 05/03/21 09:48 MW [id number] 05/03/21 09:56 MW 05/03/21 09:48 Wound Center Nurse 2 -Time 09:51 -Correct Patient Yes -Correct Side, Site, Position Yes -Correct Procedure Yes -Procedure Performed Yes -Type of Procedure Debridement -Clinical Debridement Subcutaneous -Tissue Removed Subcutaneous -Post Debridement (cm) - Length 3.4 -Post Debridement (cm) - Width 6.0 -Post Debridement (cm) - Depth 0.1 -Total Square (Post) (cm) 20.40 -Area of Debridement (cm) - Length 3.4 -Area of Debridement (cm) - Width 6.0 -Total Square (Area) (cm) 20.40 -Tunneling No -Undermining/Tunneling No -Circular Undermining No -Wound/Ulcer Outcome Not Healed -Ulcer Cleansing Rinsed/ Irrigated with Saline -Foul Odor after Cleansing No -Bioengineered Tissue No -Bleeding Controlled with Pressure -Offloading No -Treatment Response Procedure Tolerated Well -Debridement - Subq, 1st 20sq cm Yes -Debridement, SubQ, ea addt'l 20sq cm 1 or part thereof Pain Scale: 0-10 Numeric Is Patient Pain Free? Yes - Nurse 3 - General Ulcer D/C NN Start: 05/03/21 09:28 Freq: Status: Active Protocol: Activity Type Activity Date Activity User E-Sign Co-Sign Detail Recorded Client Recorded Date Recorded By Document 05/03/21 10:06 TIGRE [id number] 05/03/21 10:08 TIGRE 05/03/21 10:06 Wound Care Nurse 3 #2 right lower back -Ulcer Cleansing Rinsed/ Irrigated with Saline -Foul Odor after Cleansing No -Primary Dressing Applied Aquacel AG 4x4, Mepilex Border -Aquacel AG 4x4 2 -Mepilex Border 1 WC - Visit Discharge Discharge Condition Stable Ambulatory Status Ambulatory Transportation Private Auto Clinical Summary of Care Provided Yes Assessment/Plan Assessment/Plan (1) Chronic ulcer of back: CODE(S): L98.429 - Non-pressure chronic ulcer of back with unspecified severity (2) ESRD on hemodialysis: CODE(S): N18.6 - End stage renal disease; Z99.2 - Dependence on renal dialysis (3) Paroxysmal atrial fibrillation: CODE(S): I48.0 - Paroxysmal atrial fibrillation PLAN: Debridement done as documented above, procedure was well-tolerated. Worsening noted. Reviewed all previous measurements that show no significant improvement with epi fix. We will hold off Epifix. Switch to Aquacel Ag. Prescription for Amoxicillin sent. Adjusted for HD.. We will also start on gabapentin for pain. Continue adequate protein intake and offloading. His questions were answered and he was advised to call with any further questions or concerns. Follow-up in a week. This note was generated with [employer] dictation software. It may contain incorrect words, spelling, and punctuation that were not noted in checking the note before signing.
[2021-05-10 08:14] VITALS: BP 140/62; PULSE 91; RESP 18; TEMP 36.8; BMI 40.1
--- NOTE | 2021-05-10 12:31 | PCM.WC.PN ---
History of Present Illness Date of Service: 05/10/21 Chief Complaint: follow up R lower Back wound History of Wound: Mr. Weston is a 41 well known to me and who is currently a transfer of care to [place] due to conflicting dates for Wound care and dialysis. He has been seen her for right sided back wound. Currently in the fold of his right back. Initial assumption after ER visit was for shingles. He has been receiving care here and is currently on Epifix weekly. He reports more pain in the area and was recently at the ER. At this time, he denies chills, fever, nausea or vomiting. Subjective Subjective No new concerns at this time. Has been applying Aquacel extra. Still has pain in the area. Has been taking gabapentin as prescribed. Objective Data Objective Data Vital Signs: Vital Signs Temp Pulse Resp BP 98.2 F 91 18 140/62 H 05/10/21 08:14 05/10/21 08:14 05/10/21 08:14 05/10/21 08:14 Weight: 289 lb Body Mass Index (BMI) 40.1 Charges/Coding Procedures Integumentary 111xxx-113xx: 26970 Yany subq tissue 20 sq cm/< Physical Exam Const alert, oriented x3 and no apparent distress General Appearance: cooperative, comfortable and well kempt HEENT normocephalic and head/scalp atraumatic Head and Scalp: normal to inspection, normocephalic and atraumatic Resp normal respiratory effort Effort and Inspection: able to speak in complete sentences Skin Wounds: wounds noted Neuro oriented x3, CN's II-XII intact bilaterally and moves all extremities Psych mental status grossly normal Appearance: grossly normal Attitude: calm Activity / Motor Behavior: appropriate eye contact Debridement Note Debridement Note Post-Debridement Measurements and Additional Note: Post-Debridement Measurements/Treatment GRISELDA - Nurse 1 - General Ulcer Assessment Start: 05/03/21 09:28 Freq: Status: Active Protocol: FAISAL Activity Type Activity Date Activity User E-Sign Co-Sign Detail Recorded Client Recorded Date Recorded By Document 05/03/21 09:28 AK [id number] 05/03/21 09:42 AK Document 05/10/21 08:14 DL [id number] 05/10/21 08:20 DL 05/03/21 05/10/21 09:28 08:14 GRISELDA - Today's Visit Information Type of service Follow-up Visit Follow-up Visit (Physician/PHOTONIC LABORATORY TECHNICIAN (Physician/PHOTONIC LABORATORY TECHNICIAN ) ) Arrival Mode Ambulatory Ambulatory Transfer Assistance None Patient Identification Verified (Name & Yes Yes ) Patient Requires Transmission-Based No No Precautions Height and Weight Body Mass Index (BMI) 40.1 40.1 BMI Classification Obese Obese Vital Signs Temperature (97.8 F-99.1 F) 98.6 F 98.2 F Temperature Source Temporal Temporal Pulse Rate (60-100) 81 91 Pulse Location Monitor Monitor Respiratory Rate (12-18) 18 Respiratory rate source Observation Blood Pressure (90/60-120/80) 110/67 140/62 H Blood Pressure Mean (mm Hg) 81 88 Source Monitor Monitor History Since Last Visit- (Skip if this is Patient's initial visit) Have you changed medications since your No No last visit? Any new allergies or adverse reactions No No Had a fall/change in ADL's that may No No increase risk of falls Signs or symptoms of abuse and/or No No neglect since last visit Have you been in the hospital since your Yes No last visit? Has dressing in place as prescribed Yes Yes Has compression in place as prescribed N/A N/A Has offloadiing in place as prescribed N/A N/A Experienced any changes in pain level or Yes No management Left Footwear Regular Shoe Right Footwear Regular Shoe Pain Scale: 0-10 Numeric Is Patient Pain Free? No WC - Nurse 1 - General Ulcer Measurement Start: 05/03/21 09:28 Freq: Status: Active Protocol: Activity Type Activity Date Activity User E-Sign Co-Sign Detail Recorded Client Recorded Date Recorded By Document 05/03/21 09:28 AK [id number] 05/03/21 09:42 AK Document 05/10/21 08:14 DL [id number] 05/10/21 08:20 DL 05/03/21 05/10/21 09:28 08:14 Wound Center Nurse 1 #2 right lower back -Combined with other wound No -Current Size (cm) - Length 4 3 -Current Size (cm) - Width 5.8 5.8 -Current Size (cm) - Depth 0.1 0.2 -Total Square Cm 23.2 17.4 -Photo Taken No No -Epithelialization None Present -Tunneling No -Undermining/Tunneling No -Circular Undermining No -Exudate Amt Medium -Exudate Type Serosanguineous Serosanguineous -Wound Margin Distinct, Distinct, Outline Outline Attached Attached -Granulation Amt Medium (34-66%) Small (1-33%) -Granulation Quality [place] -Slough/Fibrin Yes -Necrosis Amt Large (67-100%) Large (67-100%) -Necrotic Tissue Type Adherent Slough Adherent Slough -Structure Exposed N/A -Texture (Skye-wound Skin Appearance) No Abnormality, Scarring Assessed -Moisture (Skye-wound Skin Appearance) No Abnormality, No Abnormality Assessed -Color (Skye-wound Skin Appearance) No Abnormality, No Abnormality Assessed -Temperature (Skye-wound Skin No Abnormality No Abnormality Appearance) (Pt Warm) (Pt Warm) -Tenderness on Palpation (Skye-wound Yes: extremely Yes Skin Appearance) sensitive -Ulcer Cleansing soap and water Wound Cleanser -Foul Odor after Cleansing No No -Anesthetic Used 4% Lidocaine 4% Lidocaine Solution,5% Solution Lidocaine Gel WC - Nurse 2 - General Ulcer CM Notes Start: 05/03/21 09:28 Freq: Status: Active Protocol: Activity Type Activity Date Activity User E-Sign Co-Sign Detail Recorded Client Recorded Date Recorded By Document 05/03/21 09:48 MW [id number] 05/03/21 09:56 MW Document 05/10/21 08:32 MW [id number] 05/10/21 08:44 MW 05/03/21 05/10/21 09:48 08:32 Wound Center Nurse 2 #2 right lower back -Time 09:51 08:32 -Correct Patient Yes Yes -Correct Side, Site, Position Yes Yes -Correct Procedure Yes Yes -Procedure Performed Yes Yes -Type of Procedure Debridement Debridement -Clinical Debridement Subcutaneous Subcutaneous -Tissue Removed Subcutaneous Subcutaneous -Post Debridement (cm) - Length 3.4 2.3 -Post Debridement (cm) - Width 6.0 6.0 -Post Debridement (cm) - Depth 0.1 0.1 -Total Square (Post) (cm) 20.40 13.80 -Area of Debridement (cm) - Length 3.4 2.3 -Area of Debridement (cm) - Width 6.0 6.0 -Total Square (Area) (cm) 20.40 13.80 -Tunneling No No -Undermining/Tunneling No No -Circular Undermining No No -Wound/Ulcer Outcome Not Healed Not Healed -Ulcer Cleansing Rinsed/ Rinsed/ Irrigated with Irrigated with Saline Saline -Foul Odor after Cleansing No No -Bioengineered Tissue No No -Bleeding Controlled with Pressure Pressure -Offloading No No -Treatment Response Procedure Procedure Tolerated Well Tolerated Well -Debridement - Subq, 1st 20sq cm Yes Yes -Debridement, SubQ, ea addt'l 20sq cm 1 or part thereof Pain Scale: 0-10 Numeric Is Patient Pain Free? Yes Yes - Nurse 3 - General Ulcer D/C NN Start: 05/03/21 09:28 Freq: Status: Active Protocol: Activity Type Activity Date Activity User E-Sign Co-Sign Detail Recorded Client Recorded Date Recorded By Document 05/03/21 10:06 AK [id number] 05/03/21 10:08 AK Document 05/10/21 08:50 AK [id number] 05/10/21 08:55 AK 05/03/21 05/10/21 10:06 08:50 Wound Care Nurse 3 #2 right lower back -Ulcer Cleansing Rinsed/ Rinsed/ Irrigated with Irrigated with Saline Saline -Foul Odor after Cleansing No No -Primary Dressing Applied Aquacel AG 4x4, Aquacel AG 4x4, Mepilex Border Mepilex Border -Aquacel AG 4x4 2 1 -Mepilex Border 1 1 WC - Visit Discharge Discharge Condition Stable Stable Ambulatory Status Ambulatory Ambulatory Transportation Private Auto Private Auto Clinical Summary of Care Provided Yes Yes Wound debrided: Right flank Type of Debridement: Excisional debridement Anesthesia Used: 5% Lidocaine Gel Depth: Down to and including healthy tissue and in the subcutaneous layer Percentage of wound debrided: 100 Instrument Used: 5mm curette Tissue Removed: Slough and devitalized tissue Severity: Fat Layer Exposed Amount of bleeding with debridement: Mild Bleeding Controlled with: Pressure Patient tolerated procedure: Patient tolerated procedure well Assessment/Plan Assessment/Plan (1) Chronic ulcer of back: CODE(S): L98.429 - Non-pressure chronic ulcer of back with unspecified severity (2) ESRD on hemodialysis: CODE(S): N18.6 - End stage renal disease; Z99.2 - Dependence on renal dialysis (3) Paroxysmal atrial fibrillation: CODE(S): I48.0 - Paroxysmal atrial fibrillation PLAN: Debridement done as documented above, procedure was well-tolerated. Still has significant pain however some improvement noted in size. Continue Aquacel Ag, moistened. Cover with gauze. Change daily. Continue gabapentin as needed for pain. Adjusted for HD. Continue adequate protein intake and offloading. His questions were answered and he was advised to call with any further questions or concerns. Follow-up in 2 weeks. This note was generated with [employer] dictation software. It may contain incorrect words, spelling, and punctuation that were not noted in checking the note before signing.
[2021-05-24 08:12] VITALS: BP 136/67; PULSE 94; RESP 22; TEMP 36.8; BMI 40.1
--- NOTE | 2021-05-24 09:15 | PN.PCM_ITS ---
History of Present Illness Date of Service: 05/24/21 Chief Complaint: follow up R lower Back wound History of Wound: Mr. Weston is a 41 well known to me and who is currently a transfer of care to ct due to conflicting dates for Wound care and dialysis. He has been seen her for right sided back wound. Currently in the fold of his right back. Initial assumption after ER visit was for shingles. He has been receiving care here and is currently on Epifix weekly. He reports more pain in the area and was recently at the ER. At this time, he denies chills, fever, nausea or vomiting. Subjective Subjective 2 hospital admissions over the past week. First for fluid in his lungs and second for dialysis access concerns. No dressing changes during his hospital stay. Objective Data Objective Data Vital Signs: Vital Signs Temp Pulse Resp BP 98.3 F 94 22 H 136/67 H 05/24/21 08:12 05/24/21 08:12 05/24/21 08:12 05/24/21 08:12 Weight: 289 lb Body Mass Index (BMI) 40.1 Charges/Coding Procedures Integumentary 111xxx-113xx: 61280 Yany subq tissue 20 sq cm/< Physical Exam Const alert, oriented x3 and no apparent distress General Appearance: cooperative, comfortable and well kempt HEENT normocephalic and head/scalp atraumatic Head and Scalp: normal to inspection, normocephalic and atraumatic Resp normal respiratory effort Effort and Inspection: able to speak in complete sentences Skin Wounds: wounds noted Neuro oriented x3, CN's II-XII intact bilaterally and moves all extremities Psych mental status grossly normal Appearance: grossly normal Attitude: calm Activity / Motor Behavior: appropriate eye contact Debridement Note Debridement Note Post-Debridement Measurements and Additional Note: Post-Debridement Measurements/Treatment GRISELDA - Nurse 1 - General Ulcer Assessment Start: 05/03/21 09:28 Freq: Status: Active Protocol: FAISAL Activity Type Activity Date Activity User E-Sign Co-Sign Detail Recorded Client Recorded Date Recorded By Document 05/03/21 09:28 AK [id number] 05/03/21 09:42 AK Document 05/10/21 08:14 DL [id number] 05/10/21 08:20 DL Document 05/24/21 08:12 DL [id number] 05/24/21 08:19 DL 05/03/21 05/10/21 05/24/21 09:28 08:14 08:12 WC - Today's Visit Information Type of service Follow-up Visit Follow-up Visit Follow-up Visit (Physician/M[employer]DLE [employer]CHO[employer] TUTOR (Physician/M[employer]DLE SCHOOL TUTOR (Physician/MIDDLE SCHOOL TUTOR ) ) ) Arrival Mode Ambulatory Ambulatory Ambulatory Transfer Assistance None Transfer Board Patient Identification Verified (Name & Yes Yes Yes ) Patient Requires Transmission-Based No No No Precautions Height and Weight Body Mass Index (BMI) 40.1 40.1 40.1 BMI Classification Obese Obese Obese Vital Signs Temperature (97.8 F-99.1 F) 98.6 F 98.2 F 98.3 F Temperature Source Temporal Temporal Temporal Pulse Rate (60-100) 81 91 94 Pulse Location Monitor Monitor Monitor Respiratory Rate (12-18) 18 22 H Respiratory rate source Observation Observation Blood Pressure (90/60-120/80) 110/67 140/62 H 136/67 H Blood Pressure Mean (mm Hg) 81 88 90 Source Monitor Monitor Monitor History Since Last Visit- (Skip if this is Patient's initial visit) Have you changed medications since your No No No last visit? Any new allergies or adverse reactions No No No Had a fall/change in ADL's that may No No No increase risk of falls Signs or symptoms of abuse and/or No No neglect since last visit Have you been in the hospital since your Yes No Yes last visit? Has dressing in place as prescribed Yes Yes Yes Has compression in place as prescribed N/A N/A N/A Has offloadiing in place as prescribed N/A N/A N/A Experienced any changes in pain level or Yes No No management Left Footwear Regular Shoe Right Footwear Regular Shoe Pain Scale: 0-10 Numeric Is Patient Pain Free? No Yes - Nurse 1 - General Ulcer Measurement Start: 05/03/21 09:28 Freq: Status: Active Protocol: Activity Type Activity Date Activity User E-Sign Co-Sign Detail Recorded Client Recorded Date Recorded By Document 05/03/21 09:28 AK [id number] 05/03/21 09:42 AK Document 05/10/21 08:14 DL [id number] 05/10/21 08:20 DL Document 05/24/21 08:12 DL [id number] 05/24/21 08:19 DL 05/03/21 05/10/21 05/24/21 09:28 08:14 08:12 Wound Center Nurse 1 #2 right lower back -Combined with other wound No -Current Size (cm) - Length 4 3 3 -Current Size (cm) - Width 5.8 5.8 6.4 -Current Size (cm) - Depth 0.1 0.2 0.2 -Total Square Cm 23.2 17.4 19.2 -Photo Taken No No No -Epithelialization None Present -Tunneling No -Undermining/Tunneling No -Circular Undermining No -Exudate Amt Medium Small -Exudate Type Serosanguineous Serosanguineous Serosanguineous -Wound Margin Distinct, Distinct, Distinct, Outline Outline Outline Attached Attached Attached -Granulation Amt Medium (34-66%) Small (1-33%) Medium (34-66%) -Granulation Quality Red [place] Pale,[place] -Slough/Fibrin Yes -Necrosis Amt Large (67-100%) Large (67-100%) Medium (34-66%) -Necrotic Tissue Type Adherent Slough Adherent Slough Adherent Slough -Structure Exposed N/A None/Limited to Skin Breakdown -Texture (Skye-wound Skin Appearance) No Abnormality, Scarring Scarring Assessed -Moisture (Skye-wound Skin Appearance) No Abnormality, No Abnormality No Abnormality Assessed -Color (Skye-wound Skin Appearance) No Abnormality, No Abnormality No Abnormality Assessed -Temperature (Skye-wound Skin No Abnormality No Abnormality No Abnormality Appearance) (Pt Warm) (Pt Warm) (Pt Warm) -Tenderness on Palpation (Skye-wound Yes: extremely Yes Skin Appearance) sensitive -Ulcer Cleansing soap and water Wound Cleanser Wound Cleanser -Foul Odor after Cleansing No No No -Anesthetic Used 4% Lidocaine 4% Lidocaine 4% Lidocaine Solution,5% Solution Solution,5% Lidocaine Gel Lidocaine Gel WC - Nurse 2 - General Ulcer CM Notes Start: 05/03/21 09:28 Freq: Status: Active Protocol: Activity Type Activity Date Activity User E-Sign Co-Sign Detail Recorded Client Recorded Date Recorded By Document 05/03/21 09:48 MW [id number] 05/03/21 09:56 MW Document 05/10/21 08:32 MW [id number] 05/10/21 08:44 MW Document 05/24/21 08:33 MW [id number] 05/24/21 08:36 MW 05/03/21 05/10/21 05/24/21 09:48 08:32 08:33 Wound Center Nurse 2 #2 right lower back -Time 09:51 08:32 08:34 -Correct Patient Yes Yes Yes -Correct Side, Site, Position Yes Yes Yes -Correct Procedure Yes Yes Yes -Procedure Performed Yes Yes Yes -Type of Procedure Debridement Debridement Debridement -Clinical Debridement Subcutaneous Subcutaneous Subcutaneous -Tissue Removed Subcutaneous Subcutaneous Subcutaneous -Post Debridement (cm) - Length 3.4 2.3 3.0 -Post Debridement (cm) - Width 6.0 6.0 6.0 -Post Debridement (cm) - Depth 0.1 0.1 0.1 -Total Square (Post) (cm) 20.40 13.80 18.00 -Area of Debridement (cm) - Length 3.4 2.3 3.0 -Area of Debridement (cm) - Width 6.0 6.0 6.0 -Total Square (Area) (cm) 20.40 13.80 18.00 -Tunneling No No No -Undermining/Tunneling No No No -Circular Undermining No No No -Wound/Ulcer Outcome Not Healed Not Healed Not Healed -Ulcer Cleansing Rinsed/ Rinsed/ Rinsed/ Irrigated with Irrigated with Irrigated with Saline Saline Saline -Foul Odor after Cleansing No No No -Bioengineered Tissue No No No -Bleeding Controlled with Pressure Pressure Pressure -Offloading No No No -Treatment Response Procedure Procedure Procedure Tolerated Well Tolerated Well Tolerated Well -Debridement - Subq, 1st 20sq cm Yes Yes Yes -Debridement, SubQ, ea addt'l 20sq cm 1 or part thereof Pain Scale: 0-10 Numeric Is Patient Pain Free? Yes Yes Yes WC - Nurse 3 - General Ulcer D/C NN Start: 05/03/21 09:28 Freq: Status: Active Protocol: Activity Type Activity Date Activity User E-Sign Co-Sign Detail Recorded Client Recorded Date Recorded By Document 05/03/21 10:06 AK [id number] 05/03/21 10:08 AK Document 05/10/21 08:50 AK [id number] 05/10/21 08:55 AK Document 05/24/21 08:38 KR [id number] 05/24/21 08:39 KR 05/03/21 05/10/21 05/24/21 10:06 08:50 08:38 Wound Care Nurse 3 #2 right lower back -Ulcer Cleansing Rinsed/ Rinsed/ Irrigated with Irrigated with Saline Saline -Foul Odor after Cleansing No No -Primary Dressing Applied Aquacel AG 4x4, Aquacel AG 4x4, Aquacel AG 4x4, Mepilex Border Mepilex Border Mepilex Border -Aquacel AG 4x4 2 1 1 -Mepilex Border 1 1 1 Pain Scale: 0-10 Numeric Is Patient Pain Free? Yes WC - Visit Discharge Discharge Condition Stable Stable Stable Ambulatory Status Ambulatory Ambulatory Wheelchair Transportation Private Auto Private Auto Private Auto Clinical Summary of Care Provided Yes Yes Wound debrided: Right Flank/Mid Back Type of Debridement: Excisional debridement Anesthesia Used: 5% Lidocaine Gel Depth: Down to and including healthy tissue and in the subcutaneous layer Percentage of wound debrided: 100 Instrument Used: 5mm curette Tissue Removed: Slough and devitalized tissue Severity: Fat Layer Exposed Amount of bleeding with debridement: Mild Bleeding Controlled with: Pressure Patient tolerated procedure: Patient tolerated procedure well Assessment/Plan Assessment/Plan (1) Chronic ulcer of back: CODE(S): L98.429 - Non-pressure chronic ulcer of back with unspecified severity (2) ESRD on hemodialysis: CODE(S): N18.6 - End stage renal disease; Z99.2 - Dependence on renal dialysis (3) Paroxysmal atrial fibrillation: CODE(S): I48.0 - Paroxysmal atrial fibrillation PLAN: Debridement done as documented above, procedure was well-tolerated. Some worsening noted. Probably from inconsistent dressing changes.... Continue Aquacel Ag, moistened. Cover with gauze. Change daily. Continue gabapentin as needed for pain. Adjusted for HD. Continue adequate protein intake and offloading. His questions were answered and he was advised to call with any further questions or concerns. Follow-up in 1 week. This note was generated with [employer] software. It may contain incorrect words, spelling, and punctuation that were not noted in checking the note before signing.
== END 2021-05-29 23:59 ==
LOC: WC 08:00
PROVIDERS: PCP Internal Medicine; Visit Provider Internal Medicine
DX: L98.422 Non-pressure chronic ulcer of back with fat layer exposed (principal); N18.6 End stage renal disease; I48.0 Paroxysmal atrial fibrillation
CPT/HCPCS: 11042; 11045

== ENCOUNTER 2021-05-30 14:16 | Emergency (ER) | payer MEDICARE, MEDICAID, SELFPAY ==
[2021-05-30 14:19] VITALS: BP 94/50; PULSE 84; RESP 17; TEMP 36.9; O2SAT 100; BMI 40.4
--- NOTE | 2021-05-30 14:36 | EKG12_ITS ---
Test Reason : SOB Blood Pressure : / mmHG Vent. Rate : 081 BPM Atrial Rate : 081 BPM P-R Int : 234 ms QRS Dur : 070 ms QT Int : 388 ms P-R-T Axes : 084 148 077 degrees QTc Int : 450 ms Sinus rhythm with 1st degree A-V block Anterior infarct , age undetermined Abnormal ECG Confirmed by CHANDA STAHL, ZIA ([id number]), market editor MARGARITO CHANDLER ([id number]) on 05/31/2021 12:50:53 PM Referred By: YUNG Confirmed By:LAUREN ARMAS MD
--- NOTE | 2021-05-30 14:37 | EDS_ITS ---
HPI History of Present Illness Chief Complaint: Shortness of Breath Informant: patient Narrative Narrative: Patient presents with mild dyspnea. He states his biggest concern is he wants to get checked for Covid. He states he had dialysis this morning and went well. They did a full course. His weight is down to dry. He is not having chest pain or pressure. He does states that he has some very mild dyspnea over his baseline. He is concerned because he was at a wedding on Friday. He finds out the stable people were positive for Covid there. His [id number] has now tested positive after the wedding. He started with symptoms over the last day. It did not change with dialysis. He is taking his Coumadin. No active bleeding. He has had no fevers or sweats. He has no loss of taste or smell. He has no myalgias. He is not having nausea vomiting or diarrhea. He states he really does not feel bad he is just slightly concerned about Covid. He had Covid about 14 or 15 months ago which got at a wedding before. 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) Central retinal artery occlusion of left eye (10/09/20) Chronic kidney disease-mineral and bone disorder Chronic pelvic pain in male Chronic ulcer of back COVID-19 virus detected (03/20/20) Dialysis patient ESRD on hemodialysis Essential (primary) hypertension Expressive aphasia (04/05/20) Hearing loss Hematuria History of bacterial endocarditis History of blood clots History of non-ST elevation myocardial infarction (NSTEMI) (11/08/19) History of pulmonary embolus (PE) History of venous thromboembolism 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 due to renal insufficiency 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 Mechanical complication of arteriovenous fistula surgically created Mitral valve annular calcification Morbidly obese Non compliance w medication regimen Non-healing non-surgical wound Nonrheumatic mitral valve stenosis with insufficiency Obstructive sleep apnea Paroxysmal atrial fibrillation (06/10/20) Paroxysmal atrial flutter 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) Pelvic mass Unspecified symptoms and signs involving cognitive functions and awareness (04/05/20) Home Medications warfarin 7.5 mg PO DAILY 10/06/20 [History Last Taken 02/13/21] brimonidine 1 drp LEFT EYE TID #1 bottle 10/09/20 [Rx Last Taken 02/13/21] oxycodone 5 mg PO DAILY PRN 04/04/21 [History Last Taken Unknown] amiodarone 200 mg tablet 200 mg PO DAILY #90 tab 05/23/21 [Rx Last Taken Unknown] midodrine 5 mg tablet 5 mg PO TID #270 tab 05/23/21 [Rx Last Taken Unknown] ferric citrate [Auryxia] 3 tab PO TIDCM 05/30/21 [History Last Taken Unknown] Allergy/AdvReac Type Severity Reaction Status Date / Time No Known Allergies Allergy Verified 05/30/21 14:17 Family History Other Adopted Surgical History History of cardioversion (12/02/18) history of cather replacement History of herniorrhaphy History of left heart catheterization (09/17/18) History of repair of congenital cleft palate Mechanical complication of dialysis catheter Status post creation of arteriovenous fistula Social History Smoking Status: Never smoker alcohol intake: never substance use type: marijuana what type of physical activity do you participate in: none ROS ROS ED Constitutional Constitutional ED: Denies chills or fever(s) Eyes Eyes: Denies blurry vision ENT ENT ED: Denies rhinorrhea Cardiovascular Cardiovascular: Denies chest pain Respiratory/Chest Respiratory/Chest: Reports cough, dyspnea and other Details: Very rare dry cough but no sputum. ; Denies sputum Gastrointestinal Gastrointestinal: Denies abdominal pain, diarrhea, nausea or vomiting Musculoskeletal Musculoskeletal: Denies arthralgias or myalgias Integumentary Reports other Details: He does have a chronic healing wound on his right back that is not really bothering him today. ; Denies rash Neurologic Neurologic: Denies headache(s) Hematologic/Lymphatic Hematologic/Lymphatic: Reports easy bleeding and easy bruising Allergic/Immunologic Allergic/Immunologic ED: Denies mouth swelling or urticaria EXAM Physical Exam Const Vital Signs: 05/30/21 14:19 05/30/21 14:41 Temperature 98.4 F Temperature Source Temporal Pulse Rate 84 Respiratory Rate 17 Respiratory Effort Normal Non-Labored Respiratory Depth Normal Respiratory Pattern Normal Blood Pressure 94/50 L Blood Pressure Mean 64 Pulse Ox 100 Oxygen Delivery Method Room Air Room Air Positive well nourished, well developed and obese General Appearance ED: well developed and NAD Nutritional Appearance: obese HEENT Negative for atraumatic or trauma Eyes Negative for EOMs intact bilaterally Neck no JVD Resp normal respiratory effort and clear to auscultation bilaterally Resp Narrative: And takes good deep breaths. His lungs actually sound quite clear. Respiratory rate is normal. O2 sat is 100% on room air showing no hypoxia. Cardio regular rate and regular rhythm GI non-tender and non-distended Palpation: soft Back/Spine no CVA tenderness Extremity General Extremety ED: Negative for tenderness Neuro oriented x3 Sensorium / Orientation: alert Psych mental status grossly normal Skin Skin Narrative: Slowly healing ulcer on the right posterior flank area. MDM MDM MDM Narrative Medical decision making narrative: Patient's EKG shows no acute process. Chest x-ray is improved from prior. His code is negative. 1 back and talk with the patient again. He states he does not feel that bad. He would like to go home. His biggest concern was if he had got Covid. I explained that he should return if he gets pain, worsening dyspnea, fevers or any other concerns. He may need to be rechecked as he is only had symptoms for about a day and exposure about 4 days ago. Radiography Diagnostic Testing: Radiology Impression Chest X-Ray 05/30/21 14:45 IMPRESSION: Improving bilateral pneumonia. at 1505 Reported and signed by: Medhat Hernandez MD Electronically Signed: Medhat Hernandez MD at 15:04 EDT Tel , Service support , Discharge Plan Triage Chief Complaint: Shortness of Breath ED Provider: Rick Chambers Dx/Rx/DC Orders Clinical Impression: Dyspnea, Close exposure to 2018-V Instructions: ED Dyspnea Prescriptions: No Action warfarin 5 MG tablet 7.5 mg PO DAILY RF: 0 brimonidine 1 DROP bottle 1 drp LEFT EYE TID Qty: 1 RF: 0 oxycodone 5 mg Capsule 5 mg PO DAILY PRN (Reason: Pain) RF: 0 Auryxia 210 mg iron tablet 3 tab PO TIDCM RF: 0 amiodarone [Pacerone] 200 mg tablet 200 mg PO DAILY Qty: 90 RF: 3 midodrine 5 mg tablet 5 mg PO TID Qty: 270 RF: 3 Primary Care Provider: Pawel Banda Referrals: Pawel Banda MD [Primary Care Provider] - 3-5 Days Disposition Disposition: Home, Self Care
[2021-05-30 14:41] VITALS: O2SAT 97
--- NOTE | 2021-05-30 14:45 | RAD_ITS ---
History: sob EXAMINATION/TECHNIQUE: XR Chest 1 View: Portable COMPARISON: May 14, 2021 FINDINGS: LINES/DEVICES: None. LUNGS: Improving airspace opacification of both lungs. No pneumothorax. MEDIASTINUM AND CARDIOVASCULAR STRUCTURES: Cardiac silhouette not enlarged. Central airways and mediastinal contour are unremarkable. BONES AND SOFT TISSUES: Moderate dextroscoliosis of the thoracic spine is unchanged. RAD/Chest 1 View (Portable) IMPRESSION: Improving bilateral pneumonia. at 1505 Reported and signed by: Medhat Hernandez MD Electronically Signed: Medhat Hernandez MD at 15:04 EDT Tel , Service support ,
[2021-05-30 16:05] VITALS: BP 129/88; PULSE 72; RESP 16; O2SAT 95
== END 2021-05-30 16:05 | disposition home or self-care (01) ==
PROVIDERS: Emergency Provider Emergency Medicine; PCP Internal Medicine
DX: R06.00 Dyspnea, unspecified (principal); E66.9 Obesity, unspecified; Z20.822 Contact with and (suspected) exposure to COVID-19; G47.33 Obstructive sleep apnea (adult) (pediatric); N18.6 End stage renal disease; I25.2 Old myocardial infarction; D63.8 Anemia in other chronic diseases classified elsewhere; Z86.711 Personal history of pulmonary embolism; Z86.718 Personal history of other venous thrombosis and embolism; Z79.01 Long term (current) use of 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s; Z99.2 Dependence on renal dialysis; Z79.899 Other long term (current) drug therapy
CPT/HCPCS: 71045; 87426; 93005; 99282

== ENCOUNTER 2021-06-04 03:40 | Observation (INO) | payer MEDICARE, MEDICAID, SELFPAY ==
[2021-06-04] VITALS (16 sets, daily range): BP systolic 90–125; BP diastolic 47–85; PULSE 68–97; RESP 15–32; TEMP 36.4–36.9; O2SAT 91–100; BMI 41.7; BMI 41.5
--- NOTE | 2021-06-04 04:04 | EKG12_ITS ---
Test Reason : SOB Blood Pressure : / mmHG Vent. Rate : 089 BPM Atrial Rate : 089 BPM P-R Int : 204 ms QRS Dur : 088 ms QT Int : 380 ms P-R-T Axes : 083 148 080 degrees QTc Int : 462 ms Normal sinus rhythm Low voltage QRS (Limb Leads) Poor R wave progression Confirmed by ADALGISA STAHL, GOGO ([id number]), avid editor MARGARITO CHANDLER ([id number]) on 06/05/2021 8:45:43 AM Referred By: BJORN Confirmed By:GOGO DIANA MD
[2021-06-04 04:41] LABS: Absolute Lymphocyte Count 0.62 X10^3/uL (0.83-4.51); Absolute Neutrophil Count 4.1 X10^3/uL (2.0-7.7); Basophil# 0.05 X10^3/uL; Basophil% 0.9 % (0-1); Eosinophil# 0.35 X10^3/uL; Hematocrit 30.5 % (40-54); Hemoglobin 9.3 g/dL (13.0-16.5); Lymphocyte # 0.62 X10^3/ul (0.83-4.51); Lymphocyte % 10.6 % (19-41); Mean Corp Hgb Conc 30.5 g/dL (32-36); Mean Corpuscular Hgb 29.5 pg (27.0-32.0); Mean Corpuscular Volume 96.8 fL (80-94); Mean Platelet Vol. 10.2 fl (6.2-12.0); NRBC Flagged by Analyzer 0.3 % (0-5); Neutrophil # 4.08 X10^3/uL (2.7-7.7); POSITIVE MORPHOLOGY YES; Platelet Count 200 K/mm3 (150-450); RBC Distribution Width CV 19.7 % (11.6-14.6); RBC Distribution Width SD 69.3 fl (35.1-43.9); Red Blood Count 3.15 M/mm3 (4.6-6.2); White Blood Count 5.8 K/mm3 (4.4-11.0)
--- NOTE | 2021-06-04 04:42 | RAD_ITS ---
STUDY: X-RAY CHEST REASON FOR EXAM: Male, 41 years old. sob TECHNIQUE: AP portable COMPARISON: 05/30/2021 FINDINGS: The lungs demonstrate persistent mild groundglass opacities. There is no demonstrated pleural abnormality. Normal size heart. Normal mediastinum and michael. Normal visualized pulmonary arteries. Normal visualized aortic arch and descending thoracic aorta. There is scoliosis of the thoracic spine. Normal visualized ribs, clavicles, and shoulders. There is no demonstrated abnormality of the visualized soft tissue structures of the upper abdomen. RAD/Chest 1 View (Portable) IMPRESSION: Persistent mild diffuse groundglass opacities. No significant radiographic changes. Electronically Signed: Sagar Escalera MD at 5:41 EDT Tel , Service support ,
[2021-06-04 04:53] LABS: Differential Indicated SCAN CRITERIA MET
[2021-06-04] MEDS: Morphine 4 MG/ML Syringe IV (04:59)
[2021-06-04 05:02] LABS: International Normalized Ratio 3.3; Prothrombin Time (Protime)PT. 32.4 SECONDS (11.7-14.9)
[2021-06-04 05:09] LABS: Anion Gap 10 (5-15); BUN 38 mg/dL (7-18); BUN/Creat Ratio 3.7 RATIO (10-20); Calcium,Total 8.9 mg/dL (8.5-10.1); Chloride 96 mmol/L (98-107); EST Glomerular Filtration Rate 6 mL/min (>60); Est Glom Filt Rate - Afr Amer 7 mL/min (>60); Estimated Creatinine Clearance 9.85 ml/min; Glucose 114 mg/dL (74-106); Sodium Level 136 mmol/L (136-145)
--- NOTE | 2021-06-04 06:00 | CT_ITS ---
STUDY: CT CHEST WITHOUT CONTRAST REASON FOR EXAM: Male, 41 years old. SOB -- persistant groundglass infiltrates RADIATION DOSAGE (If Supplied By Facility): CTDIvol = ( 20.04 ) mGy, DLP = ( 731.26 ) mGycm TECHNIQUE: Transaxial imaging was performed without the administration of intravenous contrast material. Individualized dose optimization techniques were used for this CT. COMPARISON: CTA chest from 04/04/2021 FINDINGS: The lungs are stable in aeration without focal consolidative change or organized groundglass opacities. There is no demonstrated pleural abnormality. Stable left lower lobe subpleural 1.1 cm nodular density. No intralobular septal thickening visualized. There are mitral annulus calcifications. Normal mediastinum. Normal hilar regions. Normal unenhanced pulmonary arteries. Normal aorta arch and descending thoracic aorta. Normal osseous structures. There is no demonstrated abnormality of the visualized upper abdomen. There is bilateral chest wall collaterals with narrowing and calcification of the SVC. CT/Chest without Contrast IMPRESSION: Stable unenhanced CT Chest examination relative to prior CTA chest from 04/04/2021. No focal consolidative or organized groundglass opacities. Findings on chest x-ray likely due to overlying venous collaterals. Electronically Signed: Sagar Escalera MD at 7:14 EDT Tel , Service support ,
[2021-06-04 06:08] LABS: Differential Comment SCANNED
[2021-06-04 06:09] LABS: Anisocytosis 1+; Hypochromasia RARE; Macrocytosis 1+
--- NOTE | 2021-06-04 07:56 | EX.ED.DYSGE1 ---
HPI History of Present Illness Chief Complaint: Shortness of Breath Informant: patient Onset/Context/Timing Onset: Days Context: Gradual Onset Current Severity: Moderate Maximum Severity: Moderate Narrative Narrative: Patient presents secondary to increasing shortness of breath. Patient is a dialysis patient and feels that he has not been getting enough fluid taken off recently. He is still short of breath after his dialysis treatments. Patient was seen last week with cough and concern for possible exposure to Covid. His test was negative. He does report some chest heaviness with his shortness of breath. He is on chronic Coumadin. 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) Central retinal artery occlusion of left eye (10/09/20) Chronic kidney disease-mineral and bone disorder Chronic pelvic pain in male Chronic ulcer of back COVID-19 virus detected (03/20/20) Dialysis patient ESRD on hemodialysis Essential (primary) hypertension Expressive aphasia (04/05/20) Hearing loss Hematuria History of bacterial endocarditis History of blood clots History of non-ST elevation myocardial infarction (NSTEMI) (11/08/19) History of pulmonary embolus (PE) History of venous thromboembolism 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 due to renal insufficiency 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 half-way current use of 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 Mechanical complication of arteriovenous fistula surgically created Mitral valve annular calcification Morbidly obese Non compliance w medication regimen Non-healing non-surgical wound Nonrheumatic mitral valve stenosis with insufficiency Obstructive sleep apnea Paroxysmal atrial fibrillation (06/10/20) Paroxysmal atrial flutter 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) Pelvic mass Unspecified symptoms and signs involving cognitive functions and awareness (04/05/20) Home Medications warfarin 7.5 mg PO DAILY 10/06/20 [History Last Taken 02/13/21] brimonidine 1 drp LEFT EYE TID #1 bottle 10/09/20 [Rx Last Taken 02/13/21] oxycodone 5 mg PO DAILY PRN 04/04/21 [History Last Taken Unknown] amiodarone 200 mg tablet 200 mg PO DAILY #90 tab 05/23/21 [Rx Last Taken Unknown] midodrine 5 mg tablet 5 mg PO TID #270 tab 05/23/21 [Rx Last Taken Unknown] ferric citrate [Auryxia] 3 tab PO TIDCM 05/30/21 [History Last Taken Unknown] Allergy/AdvReac Type Severity Reaction Status Date / Time No Known Allergies Allergy Verified 06/04/21 03:47 Family History Other Adopted Surgical History History of cardioversion (12/02/18) history of cather replacement History of herniorrhaphy History of left heart catheterization (09/17/18) History of repair of congenital cleft palate Mechanical complication of dialysis catheter Status post creation of arteriovenous fistula Social History Smoking Status: Never smoker alcohol intake: never substance use type: marijuana what type of physical activity do you participate in: none ROS ROS ED Constitutional Constitutional ED: Denies chills or fever(s) Eyes Eyes: Denies change in vision ENT ENT ED: Denies rhinorrhea or sore throat Cardiovascular Cardiovascular: Reports chest pain Respiratory/Chest Respiratory/Chest: Reports dyspnea; Denies cough Gastrointestinal Gastrointestinal: Denies abdominal pain, diarrhea, nausea or vomiting Musculoskeletal Musculoskeletal: Denies neck pain Integumentary Denies rash Neurologic Neurologic: Denies headache(s) Allergic/Immunologic Allergic/Immunologic ED: Denies urticaria EXAM Physical Exam Const Vital Signs: 06/04/21 03:44 06/04/21 03:52 06/04/21 05:01 Temperature 98.2 F Temperature Source Temporal Pulse Rate 97 86 Respiratory Rate 32 H 15 Respiratory Effort Short of Breath Respiratory Pattern Tachypnea Blood Pressure 125/57 H 124/60 H Blood Pressure Mean 79 81 Pulse Ox 91 100 Oxygen Delivery Method Room Air Nasal Cannula Oxygen Flow Rate (L/min) 2 06/04/21 06:28 06/04/21 07:08 Temperature Temperature Source Pulse Rate 86 84 Respiratory Rate 18 20 H Respiratory Effort Respiratory Pattern Blood Pressure 112/52 L 112/85 H Blood Pressure Mean 72 94 Pulse Ox 97 98 Oxygen Delivery Method Room Air Room Air Oxygen Flow Rate (L/min) Positive well nourished and well developed General Appearance ED: well developed Eyes PERRL and EOMs intact bilaterally Neck supple Chest Wall inspection of chest normal and palpation of chest normal Resp normal respiratory effort and clear to auscultation bilaterally Cardio regular rate and regular rhythm GI normal to inspection, nondistended, normoactive bowel sounds and non-tender Palpation: soft Extremity normal to inspection Neuro oriented x3 Sensorium / Orientation: alert Psych Mood & Affect: anxious Skin no rashes or lesions noted MDM MDM MDM Narrative Medical decision making narrative: EKG, chest x-ray, labs obtained. Patient was placed on nasal cannula at his request. His pulse ox after walking back to the room was 91%. Lab Data Attestation: I reviewed the patient's lab results. Labs: Laboratory Results - last 24 hr 06/04/21 06/04/21 06/04/21 04:30 04:30 04:30 WBC 5.8 RBC 3.15 L Hgb 9.3 L Hct 30.5 L MCV 96.8 H MCH 29.5 MCHC 30.5 L RDW Std Deviation 69.3 H RDW Coeff of Lance 19.7 H Plt Count 200 MPV 10.2 Immature Gran % (Auto) 0.500 Neut % (Auto) 70.0 Lymph % (Auto) 10.6 L Petroleum % (Auto) 12.0 H Eos % (Auto) 6.0 H Baso % (Auto) 0.9 Absolute Neuts (auto) 4.1 Absolute Lymphs (auto) 0.62 L Nucleated RBC % 0.3 Differential Comment SCANNED Hypochromasia RARE Anisocytosis 1+ Macrocytosis 1+ PT 32.4 H INR 3.3 Sodium 136 Potassium 4.0 Chloride 96 L Carbon Dioxide 30.0 Anion Gap 10 BUN 38 H Creatinine 10.40 H* Estim Creat Clear Calc 9.85 Est GFR (MDRD) Af Amer 7 L Est GFR (MDRD) Non-Af 6 L BUN/Creatinine Ratio 3.7 L Glucose 114 H Calcium 8.9 Radiography Chest X-Ray - ED: 1 View, Read by ED Physician and Chronic Changes Diagnostic Testing: Radiology Impression Chest X-Ray 06/04/21 04:42 IMPRESSION: Persistent mild diffuse groundglass opacities. No significant radiographic changes. Electronically Signed: Sagar Escalera MD at 5:41 EDT Tel , Service support , Chest CT 06/04/21 06:00 IMPRESSION: Stable unenhanced CT Chest examination relative to prior CTA chest from 04/04/2021. No focal consolidative or organized groundglass opacities. Findings on chest x-ray likely due to overlying venous collaterals. Electronically Signed: Sagar Escalera MD at 7:14 EDT Tel , Service support , EKG Initial EKG: Attestation: I personally reviewed and interpreted this EKG as follows: Interpretation: Sinus Rhythm (Sinus at 89 with no acute ischemia.) Treatment and Re-Evaluation Comments:: Patient's lab work is reviewed. Portable chest x-ray per my interpretation reveals continued haziness over the right lung, not significantly improved from prior. This has been read as continued groundglass infiltrates. In light of this CT chest without contrast is obtained. This appears to be an overlying attenuation as the lungs themselves look okay on the CT scan. No significant evidence of fluid overload or infiltrate. Test results discussed with the patient. He is very anxious about trying to leave the hospital to go to dialysis stating that with any exertion he gets very short of breath. He asked that we do another walking pulse ox. With walking nursing staff states he became tachypneic and dropped his O2 sat to 88%. I did advise the patient that he will likely be admitted just long enough to get dialysis and potentially be discharged the same day. He understands. I will speak with the vice president marketing & development as well as hospitalist. Discharge Plan Triage Chief Complaint: Shortness of Breath ED Provider: Giuliana Pink Dx/Rx/DC Orders Clinical Impression: Dyspnea Prescriptions: No Action warfarin 5 MG tablet 7.5 mg PO DAILY RF: 0 brimonidine 1 DROP bottle 1 drp LEFT EYE TID Qty: 1 RF: 0 oxycodone 5 mg Capsule 5 mg PO DAILY PRN (Reason: Pain) RF: 0 Auryxia 210 mg iron tablet 3 tab PO TIDCM RF: 0 amiodarone [Pacerone] 200 mg tablet 200 mg PO DAILY Qty: 90 RF: 3 midodrine 5 mg tablet 5 mg PO TID Qty: 270 RF: 3 Primary Care Provider: Pawel Banda Referrals: Pawel Bnada MD [Primary Care Provider] - Disposition Disposition: Acute Care Hospital [facility]
[2021-06-04] MEDS: Ketorolac 15 MG/ML Vial IV (08:20)
--- NOTE | 2021-06-04 09:10 | PCS.PANDOC ---
PANDEMIC DOCUMENTATION INITIATED: Date: 05/14/2021 Time: 190
--- NOTE | 2021-06-04 09:25 | NURSING ---
Patient refusing to allow this RN to remove dressing on wound to lower back. unable to assess wound at this time. Patient agreeable to seeing wound RN.
[2021-06-04] MEDS: oxyCODONE 5 MG Tablet PO ×2 (10:20→23:12)
[2021-06-04] MEDS: BRIMONIDINE 0.2% 5ML BOTTLE 1 DRP LEFT EYE ×3 (10:20→21:28)
[2021-06-04] MEDS: Famotidine 20 MG Tablet PO (10:21)
[2021-06-04] MEDS: Midodrine HCl 5 MG Tablet PO ×3 (10:21→21:29)
[2021-06-04] MEDS: Amiodarone 200 MG Tablet PO (10:21)
--- NOTE | 2021-06-04 10:32 | HP.PCM.HOS_ITS ---
HPI - General General Date of Admission: 06/04/21 HPI Narrative REJI WESTON, is a 41 M who presented to the emergency department at [facility] on 06/04/2021 with acute chief complaint of shortness of breath. Mr. Weston is dialysis dependent at baseline and feels like he has not been getting enough fluid taken off recently. He is concerned that maybe his dry weight is now lower than it had been previously. He reports that he still getting short of breath after his dialysis treatments. Initial complaints included chest heaviness and abdominal pain that started while he was in the emergency department. The patient does have frequent visits to the emergency department with admissions. His vital signs were stable. Oxygen saturations were 98-100 on room air. The patient demanded to be placed on oxygen so on admission he was on 1 L. His CBC shows a chronic stable anemia, but is otherwise unremarkable. His INR was 3.3 and the patient is at baseline on Coumadin. His kidney function is stable, his electrolytes are stable. Chest x-ray and CT of the chest show persistent groundglass opacities and is stable with comparison to previous films from early March. His EKG showed normal sinus rhythm without any signs of acute ischemia. Given the fact the patient was very anxious about leaving the hospital to go to dialysis today given that he gets very short of breath with any exertion he asked that a ambulatory pulse ox be performed and nursing staff reported the patient became tachypneic and his oxygen saturation dropped to 88%. A KUB is pending for his abdominal pain although his exam was not all that remarkable. He will be admitted for dialysis and reevaluated with possible discharge later today versus tomorrow. 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) Central retinal artery occlusion of left eye (10/09/20) Chronic kidney disease-mineral and bone disorder Chronic pelvic pain in male Chronic ulcer of back COVID-19 virus detected (03/20/20) Dialysis patient ESRD on hemodialysis Essential (primary) hypertension Expressive aphasia (04/05/20) Hearing loss Hematuria History of bacterial endocarditis History of blood clots History of non-ST elevation myocardial infarction (NSTEMI) (11/08/19) History of pulmonary embolus (PE) History of venous thromboembolism 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5 mg PO DAILY 10/06/20 [History Last Taken 06/03/21] brimonidine 1 drp LEFT EYE TID #1 bottle 10/09/20 [Rx Last Taken 06/03/21] oxycodone 5 mg PO DAILY PRN 04/04/21 [History Last Taken 06/03/21] amiodarone 200 mg tablet 200 mg PO DAILY #90 tab 05/23/21 [Rx Last Taken 06/03/21] midodrine 5 mg tablet 5 mg PO TID #270 tab 05/23/21 [Rx Last Taken 06/03/21] ferric citrate [Auryxia] 3 tab PO TIDCM 05/30/21 [History Last Taken 06/03/21] Allergy/AdvReac Type Severity Reaction Status Date / Time No Known Allergies Allergy Verified 06/04/21 03:47 Family History Other Adopted Surgical History History of cardioversion (12/02/18) history of cather replacement History of herniorrhaphy History of left heart catheterization (09/17/18) History of repair of congenital cleft palate Mechanical complication of dialysis catheter Status post creation of arteriovenous fistula Social History Smoking Status: Never smoker alcohol intake: never substance use type: marijuana what type of physical activity do you participate in: none ROS Constitutional Constitutional: Denies anorexia, change in weight, chills, fatigue, fever(s), malaise, night sweats, weakness or other Eyes Eyes: Denies blurry vision, change in eye color, change in vision, discharge from eye(s), double vision, erythema, eye pain, loss of vision or other ENT HEENT: Denies abnormal hearing, dysphagia, ear pain, epistaxis, headache(s), hearing loss, nasal congestion, nasal discharge, post nasal drip, sinus pressure, sore throat or other Cardiovascular Cardiovascular: Reports dyspnea on exertion and edema; Denies chest pain, claudication, lightheadedness, orthopnea, palpitations, paroxysmal nocturnal dyspnea, rapid heart rate, syncope or other Respiratory/Chest Respiratory/Chest: Reports dyspnea and shortness of breath with exertion; Denies cough, excessive phlegm production, hemoptysis, productive cough, shortness of breath at rest, wheezing or other Gastrointestinal Gastrointestinal: Reports abdominal pain and nausea; Denies coffee ground emesis, constipation, diarrhea, dyspepsia, hematemesis, hematochezia, loose stools, melena, vomiting or other Genitourinary Genitourinary: Denies burning urination, difficulty urinating, dysuria, hematuria, nocturia, urinary frequency, urinary hesitancy, urinary incontinence, urinary urgency or other Musculoskeletal Musculoskeletal: Denies arthralgias, back pain, joint pain, joint stiffness, joint swelling, myalgias, neck pain or other Neurologic Neurologic: Denies abnormal gait, abnormal speech, confusion, disequilibrium, dizziness, focal weakness, headache(s), numbness, paresthesias, seizure-like activity, seizures, syncope, tingling, tremor(s) or other Psychiatric Psychiatric: Reports anxiety; Denies depression, homicidal ideation, suicidal ideation or other Endocrine Endocrinology: Denies change in body appearance, cold intolerance, excessive sweating, heat intolerance, polydipsia, polyuria or other Hematologic/Lymphatic Hematologic/Lymphatic: Reports easy bleeding and easy bruising; Denies anemia, lymphadenopathy or other Allergic/Immunologic Allergic/Immunologic: Denies rhinitis, hives, eczemia, asthma or other Vital Signs Vital Signs Vital Signs: 06/04/21 03:44 06/04/21 03:52 06/04/21 05:01 Temperature 98.2 F Temperature Source Temporal Pulse Rate 97 86 Pulse Strength Respiratory Rate 32 H 15 Respiratory Effort Short of Breath Respiratory Depth Respiratory Pattern Tachypnea Blood Pressure 125/57 H 124/60 H Blood Pressure Mean 79 81 Blood Pressure Source Blood Pressure Position Blood Pressure Location Pulse Ox 91 100 Oxygen Delivery Method Room Air Nasal Cannula Oxygen Flow Rate (L/min) 2 06/04/21 06:28 06/04/21 07:08 06/04/21 08:07 Temperature 98.2 F Temperature Source Oral Pulse Rate 86 84 89 Pulse Strength Respiratory Rate 18 20 H 18 Respiratory Effort Respiratory Depth Respiratory Pattern Blood Pressure 112/52 L 112/85 H Blood Pressure Mean 72 94 Blood Pressure Source Blood Pressure Position Blood Pressure Location Pulse Ox 97 98 96 Oxygen Delivery Method Room Air Room Air Nasal Cannula Oxygen Flow Rate (L/min) 1 06/04/21 08:13 06/04/21 09:00 06/04/21 09:15 Temperature 98.2 F 98.2 F Temperature Source Oral Oral Pulse Rate 83 80 80 Pulse Strength Respiratory Rate 16 18 Respiratory Effort Respiratory Depth Respiratory Pattern Blood Pressure 106/72 91/70 Blood Pressure Mean 83 77 Blood Pressure Source Monitor Blood Pressure Position Sitting Blood Pressure Location Left Forearm Pulse Ox 97 98 Oxygen Delivery Method Nasal Cannula Room Air Oxygen Flow Rate (L/min) 1 06/04/21 09:25 06/04/21 09:27 Temperature Temperature Source Pulse Rate Pulse Strength Weak (1+) Respiratory Rate Respiratory Effort Normal Non-Labored Respiratory Depth Normal Respiratory Pattern Normal Blood Pressure Blood Pressure Mean Blood Pressure Source Blood Pressure Position Blood Pressure Location Pulse Ox Oxygen Delivery Method Room Air Oxygen Flow Rate (L/min) Weight Weight: 131.542 kg Body Mass Index (BMI) 41.5 Physical Exam Const alert and oriented x3 Constitutional Narrative: Morbidly obese -Prydeinig male lying in bed, grabbing his abdomen on the left side, overall does not appear that uncomfortable General Appearance: cooperative HEENT normocephalic, head/scalp atraumatic, hearing grossly normal bilaterally, moist oral mucous membranes, oropharynx normal and dentition normal Eyes PERRL, EOMs intact bilaterally and conjunctivae normal Neck no lymphadenopathy, supple and no JVD Neck Narrative: Trachea midline, no thyromegaly noted Resp normal respiratory effort, no retractions and no use of accessory muscles Resp Narrative: Mildly diminished at bases bilaterally but no adventitious sounds Auscultation: Negative for crackles, rales, rhonchi or wheezes Cardio regular rate, regular rhythm, S1 normal heart sound, S2 normal heart sound, no murmurs, no rub, no gallops, no clicks and no JVD GI normal to inspection, nondistended, normoactive bowel sounds, soft to palpation and non-distended GI Narrative: Mildly tender left lower quadrant Palpation: tender Extremity no clubbing, cyanosis or edema Peripheral Pulses: Yes pulses 2+ throughout Skin no rashes or lesions noted, no wounds, skin turgor normal, no jaundice, no petechiae and no mottling Skin Narrative: Right groin fistula with bruit and thrill noted Neuro oriented x3, CN's II-XII intact bilaterally, moves all extremities and no focal motor deficits Sensorium / Orientation: awake and alert Speech: speech normal Psych Mood & Affect: anxious Results Lab / Micro Data Result Diagrams: 06/04/21 04:30 06/04/21 04:30 Labs: Laboratory Results - last 24 hr 06/04/21 04:30: WBC 5.8, RBC 3.15 L, Hgb 9.3 L, Hct 30.5 L, MCV 96.8 H, MCH 29.5, MCHC 30.5 L, RDW Std Deviation 69.3 H, RDW Coeff of Lance 19.7 H, Plt Count 200, MPV 10.2, Immature Gran % (Auto) 0.500, Neut % (Auto) 70.0, Lymph % (Auto) 10.6 L, Simpson % (Auto) 12.0 H, Eos % (Auto) 6.0 H, Baso % (Auto) 0.9, Absolute Neuts (auto) 4.1, Absolute Lymphs (auto) 0.62 L, Nucleated RBC % 0.3, Differential Comment SCANNED, Hypochromasia RARE, Anisocytosis 1+, Macrocytosis 1+ 06/04/21 04:30: Sodium 136, Potassium 4.0, Chloride 96 L, Carbon Dioxide 30.0, Anion Gap 10, BUN 38 H, Creatinine 10.40 H*, Estim Creat Clear Calc 9.85, Est GFR (MDRD) Af Amer 7 L, Est GFR (MDRD) Non-Af 6 L, BUN/Creatinine Ratio 3.7 L, Glucose 114 H, Calcium 8.9 06/04/21 04:30: PT 32.4 H, INR 3.3 Micro: Microbiology 06/04/21 04:30 Nasal Secretion SARS-CoV-2 Antigen (Rapid) - Final Radiology Impression Chest X-Ray 06/04/21 04:42 IMPRESSION: Persistent mild diffuse groundglass opacities. No significant radiographic changes. Electronically Signed: Sagar Escalera MD at 5:41 EDT Tel , Service support , Chest CT 06/04/21 06:00 IMPRESSION: Stable unenhanced CT Chest examination relative to prior CTA chest from 04/04/2021. No focal consolidative or organized groundglass opacities. Findings on chest x-ray likely due to overlying venous collaterals. Electronically Signed: Sagar Escalera MD at 7:14 EDT Tel , Service support , Assessment & Plan Assessment/Plan (1) Acute dyspnea: PLAN: Acute dyspnea -Patient feels that maybe his dry weight is lower and there are not removing enough fluid at dialysis -Dialysis today--> discussed with nephrology -Patient's oxygen saturations are fine on room air although patient insists on wearing oxygen -Patient states his dialysis was today at 6 AM and he was unable to go although with this being a holiday they often change dialysis days because of the holiday--> unclear on the actual plan -Remove oxygen as patient allows Abdominal pain/nausea -Check LFTs -Patient has no white count -KUB pending -If persistent will check CT of the abdomen pelvis with p.o. contrast -Zofran available for nausea End-stage renal disease on HD -Discussed with nephrology -Plan is to dialyze today -Possible discharge if patient is improved -Continue midodrine with dialysis PAF -Patient is on amiodarone -Continue Coumadin -INR 3.3 today--> unclear what his last draw was -Repeat INR in a.m.--> make recommendations based on this -If patient able to be discharged later today will recommend repeat INR in a.m. upon discharge Chronic back wound -Consult wound care Morbid obesity -BMI is 41.6 -Complicates treatment, prognosis, and outcomes Thin recommend weight loss DVT prophylaxis -Patient is on Coumadin and INR is therapeutic CODE STATUS -Full code Charges/Coding Visit Charges Inpatient E&M: 50608 Init Hosp L3
--- NOTE | 2021-06-04 12:45 | RAD_ITS ---
HISTORY: Pain EXAMINATION/TECHNIQUE: XR Abdomen 1 View: COMPARISON: 03/24/21, CT abdomen and pelvis 02/14/21 FINDINGS: LINES AND TUBES: None. BOWEL GAS PATTERN: Non-obstructive. Extensive colonic fecal retention. FREE AIR: Not assessed on a single supine view. ORGANOMEGALY: Not seen. CALCIFICATIONS: No abnormal calcifications observed. BONES AND SOFT TISSUES: Changes of bilateral sacroiliitis, right side more severe than left. RAD/Abdomen Single View IMPRESSION: Non-obstructive bowel gas pattern. Colonic fecal retention suggest clinical constipation. at [id number] Reported and signed by: Parker Rangel MD Electronically Signed: Parker Rangel MD at 14:16 EDT Tel , Service support ,
--- NOTE | 2021-06-04 14:48 | PCM.HOSP.N ---
Hospitalist Note Per discussion with nursing abdominal pain is better. KUB shows fecal retention in the form of constipation. MiraLAX twice daily x1 day and docusate daily ordered. Patient is currently on dialysis.
--- NOTE | 2021-06-04 15:32 | NURSING ---
Patient is requesting to take stooling agents after dialysis treatment is complete
--- NOTE | 2021-06-04 22:00 | DIALYSIS ---
Hemodialysis x4h45m completed at 5 on a 3K bath, tolerated well, UF 4800mL, maintained profile A throughout treatment, accessed via right thigh AVG using 15G needles (arterial is inner/lower thigh), worked well, needles pulled post treatment and stasis achieved without issue, midodrine given pre-treatment, Heparin bolus given at start of treatment, next treatment per nephrology
[2021-06-05 03:00] VITALS: PULSE 84
[2021-06-05 04:17] VITALS: BP 112/83; PULSE 82; RESP 16; TEMP 36.9; O2SAT 98
[2021-06-05] MEDS: BRIMONIDINE 0.2% 5ML BOTTLE 1 DRP LEFT EYE (05:57)
[2021-06-05 06:32] LABS: Absolute Lymphocyte Count 0.62 X10^3/uL (0.83-4.51); Absolute Neutrophil Count 2.8 X10^3/uL (2.0-7.7); Basophil# 0.05 X10^3/uL; Basophil% 1.1 % (0-1); Eosinophil# 0.45 X10^3/uL; Eosinophils% 10.1 % (0-5); Hematocrit 32.7 % (40-54); Hemoglobin 9.7 g/dL (13.0-16.5); Lymphocyte # 0.62 X10^3/ul (0.83-4.51); Lymphocyte % 13.9 % (19-41); Mean Corp Hgb Conc 29.7 g/dL (32-36); Mean Corpuscular Hgb 29.4 pg (27.0-32.0); Mean Corpuscular Volume 99.1 fL (80-94); Monocyte# 0.49 X10^3/uL; NRBC Flagged by Analyzer 0 % (0-5); Neutrophil # 2.83 X10^3/uL (2.7-7.7); Neutrophil % 63.2 % (47-70); POSITIVE MORPHOLOGY YES; Platelet Count 216 K/mm3 (150-450); RBC Distribution Width CV 19.7 % (11.6-14.6); RBC Distribution Width SD 71.2 fl (35.1-43.9); White Blood Count 4.5 K/mm3 (4.4-11.0)
[2021-06-05 06:59] VITALS: PULSE 82
[2021-06-05 07:00] LABS: Differential Indicated SCAN CRITERIA MET
[2021-06-05 07:06] LABS: ALB/GLOB Ratio 0.5 RATIO (0.9-2.4); AST(SGOT) 21 U/L (15-37); Alanine Aminotransfer ALT/SGPT 17 U/L (16-61); Albumin, Serum 2.8 g/dL (3.2-5.0); Alkaline Phosphatase 96 U/L (45-117); Anion Gap 6 (5-15); BUN 20 mg/dL (7-18); BUN/Creat Ratio 3.1 RATIO (10-20); Calcium,Total 9.1 mg/dL (8.5-10.1); Chloride 96 mmol/L (98-107); Creatinine, Serum 6.51 mg/dL (0.70-1.30); EST Glomerular Filtration Rate 10 mL/min (>60); Est Glom Filt Rate - Afr Amer 12 mL/min (>60); Estimated Creatinine Clearance 15.73 ml/min; Globulin 5.6 g/dL (2.2-4.2); Glucose 101 mg/dL (74-106); Magnesium 2.2 mg/dL (1.6-2.6); Phosphorus 4.9 mg/dL (2.5-4.9); Potassium 4.1 mmol/L (3.5-5.1); Protein, Total 8.4 g/dL (6.4-8.2); Sodium Level 132 mmol/L (136-145)
[2021-06-05 07:07] LABS: International Normalized Ratio 3.7; Prothrombin Time (Protime)PT. 36.1 SECONDS (11.7-14.9)
[2021-06-05 07:16] LABS: Anisocytosis 1+; Differential Comment SCANNED; Microcytosis 1+
--- NOTE | 2021-06-05 08:21 | PCM.DC.SUM ---
Providers Date of Admission: 06/04/21 Primary Care Physician: Dr. Pawel Banda MD Consultations 06/04/21 09:08 Consult: Nephrology Routine Consulting Provider: Leelee Cook Reason for Consult: HD EMERGENT Consult: No MD Notified: Yes Date Notified: 06/04/21 Time Notified: 09:22 Method of Notification: Answering Service 06/04/21 10:12 Consult: Onc/Wound/recreation therapy teacher Routine Comment: Reason for Consult:: non healing wound to back Reason For Visit: HYPOXIA Diagnosis Discharge Diagnosis (1) Acute dyspnea: Status: Acute Code(s): R06.00 - Dyspnea, unspecified Medications at Discharge Home Medications warfarin 7.5 mg PO DAILY 10/06/20 brimonidine 1 drp LEFT EYE TID #1 bottle 10/09/20 oxycodone 5 mg PO DAILY PRN 04/04/21 amiodarone 200 mg tablet 200 mg PO DAILY #90 tab 05/23/21 midodrine 5 mg tablet 5 mg PO TID #270 tab 05/23/21 Auryxia 3 tab PO TIDCM 05/30/21 Hospital Course Operations None Procedures Dialysis Summary of Care Provided Minutes Spent on Discharge: 39 Hospital Course: REJI WESTON, is a 41 M who presented to the emergency department at [facility] on 06/04/2021 with acute chief complaint of shortness of breath. Mr. Weston is dialysis dependent at baseline and feels like he has not been getting enough fluid taken off recently. He is concerned that maybe his dry weight is now lower than it had been previously. He reported that he still getting short of breath after his dialysis treatments. Initial complaints included chest heaviness and abdominal pain that started while he was in the emergency department. The patient does have frequent visits to the emergency department with admissions. His vital signs were stable. Oxygen saturations were 98-100 on room air. The patient demanded to be placed on oxygen so on admission he was on 1 L and his oxygen saturations remained stable throughout his entire hospitalization. His CBC shows a chronic stable anemia, but is otherwise unremarkable. His INR was 3.3 and the patient is at baseline on Coumadin. His kidney function is stable, his electrolytes are stable. Chest x-ray and CT of the chest showed persistent groundglass opacities and is stable with comparison to previous films from early March. His EKG showed normal sinus rhythm without any signs of acute ischemia. Given the fact the patient was very anxious about leaving the hospital to go to dialysis on the day of admission and given that he was getting very short of breath with any exertion; he asked that a ambulatory pulse ox be performed and nursing staff reported the patient became tachypneic and his oxygen saturation dropped to 88%. A KUB was performed for his abdominal pain and showed nonspecific bowel gas pattern with probable constipation. For this he was placed on a bowel regimen and instructed to continue this upon discharge with [id number] medications. His INR was noted to be supratherapeutic at 3.3 on admission on the day of discharge it was 3.7 and therefore his Coumadin was held. His last dose of Coumadin was on 06/03/2021. He is to obtain an INR tomorrow for which she has a standing order here at the hospital and follow-up with Dr. Moreno for further dosing. He reports Dr. Moreno manages his Coumadin on a regular basis. He has a chair time for dialysis today at 1120. This was discussed with the patient. He was also instructed to follow-up with his PCP within a week. Discharge diagnoses: Acute dyspnea without hypoxia Constipation Supratherapeutic INR End-stage renal disease on HD PAF Chronic back wound Morbid obesity Chronic pain Physical Exam Const alert, oriented x3 and no apparent distress Constitutional Narrative: Morbidly obese -[place] male lying in bed sleeping but awakens easily, nontoxic and appears comfortable, on 3 L of oxygen but sats on room air have been 98 to 99% General Appearance: cooperative Exam Limitations: no limitations HEENT normocephalic, head/scalp atraumatic, hearing grossly normal bilaterally, moist oral mucous membranes, oropharynx normal and dentition normal Eyes PERRL, EOMs intact bilaterally and conjunctivae normal Neck no lymphadenopathy, supple and no JVD Neck Narrative: Trachea midline, no thyromegaly noted Resp normal respiratory effort, no retractions and no use of accessory muscles Resp Narrative: Mildly diminished at bases bilaterally but no adventitious sounds Auscultation: Negative for crackles, rales, rhonchi or wheezes Cardio regular rate, regular rhythm, S1 normal heart sound, S2 normal heart sound, no murmurs, no rub, no gallops, no clicks and no JVD GI normal to inspection, nondistended, normoactive bowel sounds, soft to palpation, non-tender and non-distended GI Narrative: Mildly tender left lower quadrant Palpation: tender Extremity no clubbing, cyanosis or edema Skin no rashes or lesions noted, no wounds, skin turgor normal, no jaundice, no petechiae and no mottling Skin Narrative: Right groin fistula with bruit and thrill noted Neuro oriented x3, CN's II-XII intact bilaterally, moves all extremities and no focal motor deficits Sensorium / Orientation: awake and alert Speech: speech normal Psych Mood & Affect: anxious Weight / BMI Weight Weight: 131.542 kg Body Mass Index (BMI) 41.5 ABG / Lab / Microbiology Data Result Diagrams: 06/05/21 06:15 06/05/21 06:15 Laboratory: Laboratory Results - last 24 hr 06/05/21 06:15: WBC 4.5, RBC 3.30 L, Hgb 9.7 L, Hct 32.7 L, MCV 99.1 H, MCH 29.4, MCHC 29.7 L, RDW Std Deviation 71.2 H, RDW Coeff of Lance 19.7 H, Plt Count 216, MPV 10.0, Immature Gran % (Auto) 0.700, Neut % (Auto) 63.2, Lymph % (Auto) 13.9 L, [place] % (Auto) 11.0 H, Eos % (Auto) 10.1 H, Baso % (Auto) 1.1 H, Absolute Neuts (auto) 2.8, Absolute Lymphs (auto) 0.62 L, Nucleated RBC % 0, Differential Comment SCANNED, Anisocytosis 1+, Microcytosis 1+ 06/05/21 06:15: PT 36.1 H, INR 3.7 06/05/21 06:15: Sodium 132 L, Potassium 4.1, Chloride 96 L, Carbon Dioxide 30.0, Anion Gap 6, BUN 20 H, Creatinine 6.51 H, Estim Creat Clear Calc 15.73, Est GFR (MDRD) Af Amer 12 L, Est GFR (MDRD) Non-Af 10 L, BUN/Creatinine Ratio 3.1 L, Glucose 101, Calcium 9.1, Phosphorus 4.9, Magnesium 2.2, Total Bilirubin 0.60, AST 21, ALT 17, Alkaline Phosphatase 96, Total Protein 8.4 H, Albumin 2.8 L, Globulin 5.6 H, Albumin/Globulin Ratio 0.5 L Microbiology: Microbiology 06/04/21 04:30 Nasal Secretion SARS-CoV-2 Antigen (Rapid) - Final Radiography Diagnostic Testing: Radiology Impression KUB X-Ray 06/04/21 12:45 IMPRESSION: Non-obstructive bowel gas pattern. Colonic fecal retention suggest clinical constipation. at 1417 Reported and signed by: Parker Rangel MD Electronically Signed: Parker Rangel MD at 14:16 EDT Tel , Service support , D/C Instructions Discharge Diet: Low fat / Low cholesterol and Renal Diet Meaningful Use Info Meaningful Use Diagnoses (Choose all that apply): None applicable Discharge Plan Admission Admit Date/Time: 06/04/21 08:13 Attending Provider: Selina Santiago Primary Care Provider: Pawel Banda Consulting Providers: Leelee Cook Instructions Additional Instructions / Restrictions: 1. Please report to dialysis today at 1120 2. Hold Coumadin until instructed to restart by Dr. Moreno 3. Have INR drawn tomorrow Discharge Orders/Prescriptions Prescriptions: Continued brimonidine 1 DROP bottle 1 drp LEFT EYE TID Qty: 1 RF: 0 oxycodone 5 mg Capsule 5 mg PO DAILY PRN (Reason: Pain) RF: 0 Auryxia 210 mg iron tablet 3 tab PO TIDCM RF: 0 amiodarone [Pacerone] 200 mg tablet 200 mg PO DAILY Qty: 90 RF: 3 midodrine 5 mg tablet 5 mg PO TID Qty: 270 RF: 3 Held warfarin 5 MG tablet 7.5 mg PO DAILY RF: 0 Hold Instructions: Follow up for INR tomorrow and hold until further instructed by Dr. Moreno--> INR today was 3.7 Referrals / Follow Up: Pawel Banda MD [Primary Care Provider] - Within 1 Week Disposition Disposition (needs filled in before D/C Order can be placed): Home, Self Care Charges/Coding Visit Charges Inpatient E&M: 99866 Disch Hosp
--- NOTE | 2021-06-05 08:34 | DCINST_ITS ---
Discharge Instructions Diet Discharge Diet: Low fat / Low cholesterol and Renal Diet Follow Up Care Test Results: Test results from this visit will be discussed in further detail at your follow-up appointment, if applicable. Discharge Plan Admission Admit Date/Time: 06/04/21 08:13 Attending Provider: Selina Santiago Primary Care Provider: Pawel Banda Consulting Providers: Leelee Cook Instructions Additional Instructions / Restrictions: 1. Please report to dialysis today at 1120 2. Hold Coumadin until instructed to restart by Dr. Moreno 3. Have INR drawn tomorrow Discharge Orders/Prescriptions Prescriptions: Continued brimonidine 1 DROP bottle 1 drp LEFT EYE TID Qty: 1 RF: 0 oxycodone 5 mg Capsule 5 mg PO DAILY PRN (Reason: Pain) RF: 0 Auryxia 210 mg iron tablet 3 tab PO TIDCM RF: 0 amiodarone [Pacerone] 200 mg tablet 200 mg PO DAILY Qty: 90 RF: 3 midodrine 5 mg tablet 5 mg PO TID Qty: 270 RF: 3 Held warfarin 5 MG tablet 7.5 mg PO DAILY RF: 0 Hold Instructions: Follow up for INR tomorrow and hold until further ins tructed by Dr. Moreno--> INR today was 3.7 Referrals / Follow Up: Pawel Banda MD [Primary Care Provider] - Within 1 Week Disposition Disposition (needs filled in before D/C Order can be placed): Home, Self Care
[2021-06-05] MEDS: Amiodarone 200 MG Tablet PO (08:42)
[2021-06-05] MEDS: Docusate Sodium 100 MG Capsule 200 MG PO (08:42)
[2021-06-05] MEDS: Midodrine HCl 5 MG Tablet PO (08:42)
--- NOTE | 2021-06-05 09:17 | CASEMGMT ---
Per Marcelo RAMOS, pt is on room air and does not need any home oxygen. Pt does have cpap at home but no home oxygen. Pt states does wear oxygen prn at dialysis. Plan is to discharge pt to get to OP HD today. Call to [facility] to notify that pt will be coming there today, voice understanding and they state pt has already notified them. Glo RAMOS CM
--- NOTE | 2021-06-05 09:17 | CASEMGMT ---
Per Marcelo RAMOS, pt is on room air and does not need any home oxygen. Pt does have cpap at home with bleed in per pt. Plan is to discharge pt to get to OP HD today. Call to [facility] to notify that pt will be coming there today, voice understanding and they state pt has already notified them. Glo RAMOS CM
--- NOTE | 2021-06-05 09:50 | CASEMGMT ---
This RN SOHEILA to room with LAZCANO form, explanation done-pt voices understanding, and signs LAZCANO form. Original to chart and pt declines copy. Pt voices no further questions/concerns/needs. SStaten RN CM
--- NOTE | 2021-06-05 09:52 | CON.PCM.RE_ITS ---
Assessment & Plan Assessment/Plan (1) ESRD (end stage renal disease): PLAN: ESRD. has HD spot today at 11 am. feels better after emergent HD. can get dialysis as outpatient today. dc today HPI Consult Data Date of Consult: 06/05/21 HPI Narrative HPI Narrative: REJI SPAIN, is a 41 M who presents to the hospital with dyspnea. ESRD on HD MWF schedule. came in with fluid overload. s/p dialysis. Access is thigh graft. feels better. asking to be discharged so that he can go to dialysis unit today. 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) Central retinal artery occlusion of left eye (10/09/20) Chronic kidney disease-mineral and bone disorder Chronic pelvic pain in male Chronic ulcer of back COVID-19 virus detected (03/20/20) Dialysis patient ESRD on hemodialysis Essential (primary) hypertension Expressive aphasia (04/05/20) Hearing loss Hematuria History of bacterial endocarditis History of blood clots History of non-ST elevation myocardial infarction (NSTEMI) (11/08/19) History of pulmonary embolus (PE) History of venous thromboembolism 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 due to renal insufficiency 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 Mechanical complication of arteriovenous fistula surgically created Mitral valve annular calcification Morbidly obese Non compliance w medication regimen Non-healing non-surgical wound Nonrheumatic mitral valve stenosis with insufficiency Obstructive sleep apnea Paroxysmal atrial fibrillation (06/10/20) Paroxysmal atrial flutter 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) Pelvic mass Unspecified symptoms and signs involving cognitive functions and awareness (04/05/20) Home Medications warfarin 7.5 mg PO DAILY 10/06/20 [History Last Taken 06/03/21] brimonidine 1 drp LEFT EYE TID #1 bottle 10/09/20 [Rx Last Taken 06/03/21] oxycodone 5 mg PO DAILY PRN 04/04/21 [History Last Taken 06/03/21] amiodarone 200 mg tablet 200 mg PO DAILY #90 tab 05/23/21 [Rx Last Taken 06/03/21] midodrine 5 mg tablet 5 mg PO TID #270 tab 05/23/21 [Rx Last Taken 06/03/21] Auryxia 3 tab PO TIDCM 05/30/21 [History Last Taken 06/03/21] Allergy/AdvReac Type Severity Reaction Status Date / Time No Known Allergies Allergy Verified 06/04/21 03:47 Family History Other Adopted Surgical History History of cardioversion (12/02/18) history of cather replacement History of herniorrhaphy History of left heart catheterization (09/17/18) History of repair of congenital cleft palate Mechanical complication of dialysis catheter Status post creation of arteriovenous fistula Social History Smoking Status: Never smoker alcohol intake: never substance use type: marijuana what type of physical activity do you participate in: none ROS ROS Narrative negative except above Physical Exam Narrative Alert awake oriented x 3 no obvious distress no pallor no icterus no JVD s1s2 no murmurs lungs clear abdomen soft no organomegaly no edema no cyanosis burgos + Lab / Micro Data Result Diagrams: 06/05/21 06:15 06/05/21 06:15 Labs: Laboratory Results - last 24 hr 06/05/21 06:15: WBC 4.5, RBC 3.30 L, Hgb 9.7 L, Hct 32.7 L, MCV 99.1 H, MCH 29.4, MCHC 29.7 L, RDW Std Deviation 71.2 H, RDW Coeff of Lance 19.7 H, Plt Count 216, MPV 10.0, Immature Gran % (Auto) 0.700, Neut % (Auto) 63.2, Lymph % (Auto) 13.9 L, [place] % (Auto) 11.0 H, Eos % (Auto) 10.1 H, Baso % (Auto) 1.1 H, Absolute Neuts (auto) 2.8, Absolute Lymphs (auto) 0.62 L, Nucleated RBC % 0, Differential Comment SCANNED, Anisocytosis 1+, Microcytosis 1+ 06/05/21 06:15: PT 36.1 H, INR 3.7 06/05/21 06:15: Sodium 132 L, Potassium 4.1, Chloride 96 L, Carbon Dioxide 30.0, Anion Gap 6, BUN 20 H, Creatinine 6.51 H, Estim Creat Clear Calc 15.73, Est GFR (MDRD) Af Amer 12 L, Est GFR (MDRD) Non-Af 10 L, BUN/Creatinine Ratio 3.1 L, Glucose 101, Calcium 9.1, Phosphorus 4.9, Magnesium 2.2, Total Bilirubin 0.60, AST 21, ALT 17, Alkaline Phosphatase 96, Total Protein 8.4 H, Albumin 2.8 L, Globulin 5.6 H, Albumin/Globulin Ratio 0.5 L Radiology Impression KUB X-Ray 06/04/21 12:45 IMPRESSION: Non-obstructive bowel gas pattern. Colonic fecal retention suggest clinical constipation. at 1417 Reported and signed by: Parker Rangel MD Electronically Signed: Parker Rangel MD at 14:16 EDT Tel , Service support ,
--- NOTE | 2021-06-05 09:53 | PHA.DC.MR ---
Pharmacy Service has performed discharge medication reconciliation for this patient. The patient's discharge medication list was reviewed for discrepancies and discrepancies were resolved. Home Medications warfarin 7.5 mg PO DAILY 10/06/20 brimonidine 1 drp LEFT EYE TID #1 bottle 10/09/20 oxycodone 5 mg PO DAILY PRN 04/04/21 amiodarone 200 mg tablet 200 mg PO DAILY #90 tab 05/23/21 midodrine 5 mg tablet 5 mg PO TID #270 tab 05/23/21 Auryxia 3 tab PO TIDCM 05/30/21
--- NOTE | 2021-06-05 09:55 | WOUNDNOTE ---
wound photo: right lower back crease
[2021-06-05 10:00] VITALS: BP 101/58; PULSE 78; RESP 18; TEMP 36.9; O2SAT 97
== END 2021-06-05 08:26 | disposition home or self-care (01) ==
LOC: ED 08:01 → PCU 08:24
PROVIDERS: Admitting Provider Internal Medicine; Emergency Provider Emergency Medicine; PCP Internal Medicine; Visit Provider Internal Medicine
DX: R06.02 Shortness of breath (principal); K59.00 Constipation, unspecified; R79.1 Abnormal coagulation profile; N18.6 End stage renal disease; I48.0 Paroxysmal atrial fibrillation; E66.01 Morbid (severe) obesity due to excess calories; Z68.41 Body mass index [BMI] 40.0-44.9, adult; G89.29 Other chronic pain; D63.8 Anemia in other chronic diseases classified elsewhere; G47.33 Obstructive sleep apnea (adult) (pediatric); I12.0 Hypertensive chronic kidney disease with stage 5 chronic kidney disease or end stage renal disease; Z99.2 Dependence on renal dialysis; Z79.899 Other long term (current) drug therapy; Z79.01 Long term (current) use of 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s; Z86.16 Personal history of COVID-19; Z86.711 Personal history of pulmonary embolism; I25.2 Old myocardial infarction; Z91.14 Patient's other noncompliance with medication regimen
CPT/HCPCS: 36415; 71045; 71250; 74018; 80048; 80053; 83735; 84100; 85025; 85610; 87426; 90937; 93005; 96374; 96375; 99218; 99285; A4216; G0257; G0378

== ENCOUNTER → 2021-06-07 10:38 | Outpatient (CLI) | payer MEDICARE, MEDICAID, SELFPAY ==
[2021-06-07 11:49] LABS: International Normalized Ratio 2.8
== END ==
PROVIDERS: PCP Internal Medicine; Referring Provider Internal Medicine Cardiovascular Disease; Visit Provider Internal Medicine Cardiovascular Disease
DX: I48.0 Paroxysmal atrial fibrillation (principal); I48.92 Unspecified atrial flutter; Z79.01 Long term (current) use of 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s
CPT/HCPCS: 36415; 85610

== ENCOUNTER 2021-06-08 11:20 | Emergency (ER) | payer MEDICARE, MEDICAID, SELFPAY ==
[2021-06-08 11:22] VITALS: BP 97/43; PULSE 97; RESP 20; TEMP 36.6; O2SAT 100; BMI 40.0
--- NOTE | 2021-06-08 11:32 | EKG12_ITS ---
Test Reason : CHEST PAIN Blood Pressure : / mmHG Vent. Rate : 093 BPM Atrial Rate : 094 BPM P-R Int : 000 ms QRS Dur : 084 ms QT Int : 396 ms P-R-T Axes : 000 153 075 degrees QTc Int : 492 ms Possible Accelerated Junctional rhythm Prolonged QT Poor R wave progression Cannot exclude limb lead misplacement Abnormal ECG Consider repeat ECG Confirmed by ADALGISA STAHL, GOGO ([id number]), magazine editor MARGARITO CHANDLER ([id number]) on 06/11/2021 2:20:58 PM Referred By: JUAN M Confirmed By:GOGO DIANA MD
--- NOTE | 2021-06-08 11:32 | EKG12_ITS ---
Test Reason : IRREGULAR RYTHMN Blood Pressure : / mmHG Vent. Rate : 094 BPM Atrial Rate : 097 BPM P-R Int : 000 ms QRS Dur : 080 ms QT Int : 412 ms P-R-T Axes : 000 141 066 degrees QTc Int : 515 ms Sinus rhythm with prolonged MT duration Prolonged QT Poor R wave progression Abnormal ECG Confirmed by ADALGISA STAHL, GOGO ([id number]), continuity editor MARGARITO CHANDLER ([id number]) on 06/12/2021 7:42:33 AM Referred By: Nnamdi Moreno Confirmed By:GOGO DIANA MD
--- NOTE | 2021-06-08 11:32 | VDLE_ITS ---
Reason For Study: Pain RIGHT GSV is normal. CFV is compressible, spontaneous, phasic, competent and demonstrates normal augmentation. FV is compressible, spontaneous, phasic, competent and demonstrates normal augmentation. POP V is compressible, spontaneous, phasic, competent and demonstrates normal augmentation. T/P Trunk is compressible. PTV is compressible. RT PerV is compressible. FA prox-FV prox loop graft noted. Appears patent at distal anastomosis. Did not interrogate whole loop graft. FA prox, 68.7 cm/sec. Procedure This is a venous duplex using B-mode, color flow and spectral Doppler. Exam performed portable in ED. A preliminary report was called and/or faxed to [facility]. VL/Venous Duplex US, Unilateral Interpretation Summary There is no evidence of right lower extremity deep vein thrombosis. Right great saphenous vein appears patent and compressible segmentally. The requested study was a venous e xam of the right lower extremity investigating for possible venous thrombosis. None is identifie d. There is report of a loop graft from right femoral artery to femoral vein. It was not completely i nterrogated. It is patent at the distal anastomosis. Ordering Physician: Maxi Villalba Referring Physician: Pawle Banda Performed By: Jaja Vitale RVT
--- NOTE | 2021-06-08 11:33 | ED.VIS.LOWEX ---
HPI History of Present Illness Chief Complaint: Lower Extremity Injury Informant: patient Narrative Narrative: 41-year-old male presents the emergency room with right calf pain. He states the symptoms began on Friday when he was discharged from the hospital. He states that it occurred after dialysis. He states that it has been constant all week. He did not talk to his doctor about this because he figured it would go away. He notes a prior history of DVT PE and is on Coumadin. He does not know what his level was yesterday when it was checked. He denies any change in recent dosing of the warfarin. He states that the leg is more swollen than normal. 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) Central retinal artery occlusion of left eye (10/09/20) Chronic kidney disease-mineral and bone disorder Chronic pelvic pain in male Chronic ulcer of back COVID-19 virus detected (03/20/20) Dialysis patient ESRD on hemodialysis Essential (primary) hypertension Expressive aphasia (04/05/20) Hearing loss Hematuria History of bacterial endocarditis History of blood clots History of non-ST elevation myocardial infarction (NSTEMI) (11/08/19) History of pulmonary embolus (PE) History of venous thromboembolism 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 due to renal insufficiency 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 penitentiary current use of 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 Mechanical complication of arteriovenous fistula surgically created Mitral valve annular calcification Morbidly obese Non compliance w medication regimen Non-healing non-surgical wound Nonrheumatic mitral valve stenosis with insufficiency Obstructive sleep apnea Paroxysmal atrial fibrillation (06/10/20) Paroxysmal atrial flutter 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) Pelvic mass Unspecified symptoms and signs involving cognitive functions and awareness (04/05/20) Home Medications warfarin 5 mg PO DAILY 10/06/20 [History Last Taken 06/03/21] brimonidine 1 drp LEFT EYE TID #1 bottle 10/09/20 [Rx Last Taken 06/03/21] amiodarone 200 mg tablet 200 mg PO DAILY #90 tab 05/23/21 [Rx Last Taken 06/03/21] midodrine 5 mg tablet 5 mg PO TID #270 tab 05/23/21 [Rx Last Taken 06/03/21] Auryxia 3 tab PO TIDCM 05/30/21 [History Last Taken 06/03/21] gabapentin [Neurontin] 100 mg PO 06/08/21 [History Last Taken Unknown] Allergy/AdvReac Type Severity Reaction Status Date / Time No Known Allergies Allergy Verified 06/08/21 11:24 Family History Other Adopted Surgical History History of cardioversion (12/02/18) history of cather replacement History of herniorrhaphy History of left heart catheterization (09/17/18) History of repair of congenital cleft palate Mechanical complication of dialysis catheter Status post creation of arteriovenous fistula Social History Smoking Status: Never smoker alcohol intake: never substance use type: marijuana what type of physical activity do you participate in: none ROS ROS ED Constitutional Constitutional ED: Denies chills or weight loss Eyes Eyes: Denies change in vision or diplopia ENT ENT ED: Denies ear pain, rhinorrhea or sore throat Cardiovascular Cardiovascular: Denies chest pain, orthopnea, palpitations or racing heartbeat Respiratory/Chest Respiratory/Chest: Denies cough, dyspnea or orthopnea Gastrointestinal Gastrointestinal: Denies abdominal pain, diarrhea, nausea or vomiting Genitourinary Genitourinary ED: Denies dysuria, hematuria or urinary frequency Musculoskeletal Musculoskeletal: Reports other Details: Right calf pain ; Denies arthralgias or myalgias Integumentary Denies abscess or rash Neurologic Neurologic: Denies headache(s) or weakness Psychiatric Psychiatric: Denies anxiety, depression, suicidal ideation or suicidal thoughts Endocrine Endocrinology: Denies polydipsia, polyphagia or polyuria Allergic/Immunologic Allergic/Immunologic ED: Denies mouth swelling, tongue swelling or urticaria EXAM Physical Exam Const Vital Signs: 06/08/21 11:22 06/08/21 12:07 Temperature 97.9 F Temperature Source Temporal Pulse Rate 97 Respiratory Rate 20 H 18 Blood Pressure 97/43 L Blood Pressure Mean 61 Pulse Ox 100 Oxygen Delivery Method Room Air Positive well nourished, well developed and obese General Appearance ED: well developed Nutritional Appearance: obese HEENT Reports normocephalic, head/scalp atraumatic and moist mucous membranes Eyes PERRL and EOMs intact bilaterally Neck no lymphadenopathy, supple and no JVD Resp normal respiratory effort and clear to auscultation bilaterally Cardio regular rate, regular rhythm and no murmurs GI normal to inspection, nondistended, normoactive bowel sounds and non-tender Palpation: soft Back/Spine no CVA tenderness and normal ROM Extremity Extremity Narrative: Tender to palpation of the right calf. I do not appreciate any significant size difference between the 2 legs. No palpable cords General Extremety ED: Negative for edema General Extremity: Negative for edema Neuro oriented x3 and CN's II-XII intact bilaterally Sensorium / Orientation: alert Motor Exam: strength 5/5 throughout Psych mental status grossly normal Mood & Affect: Negative for depressed or tearful Skin no rashes or lesions noted and no wounds MDM MDM MDM Narrative Medical decision making narrative: Duplex ultrasound was negative. His INR is 2.4. At this point patient will be discharged home. Instructions to follow-up with his doctor if continued symptoms. Patient states that he is uncomfortable leaving the emergency department. He states he needs to have a D-dimer testing done. As his duplex is negative, he is therapeutic on his Coumadin, he is not hypoxic or tachycardic I do not believe that that test is indicated. I informed him that I would not be ordering the test and that he is discharged. He states that he is not leaving. This is not the first time that Mr. Weston has done this. At this point I see no evidence of an acute medical emergency and the patient is discharged Lab Data Attestation: I reviewed the patient's lab results. Labs: Laboratory Results - last 24 hr 06/08/21 11:45 PT 25.0 H INR 2.4 Radiography Diagnostic Testing: Radiology Impression Venous Doppler Study 06/08/21 11:32 Interpretation Summary There is no evidence of right lower extremity deep vein thrombosis. Right great saphenous vein appears patent and compressible segmentally. The requested study was a venous exam of the right lower extremity investigating for possible venous thrombosis. None is identified. There is report of a loop graft from right femoral artery to femoral vein. It was not completely interrogated. It is patent at the distal anastomosis. Ordering Physician: Maxi Villalba Referring Physician: Pawel Banda Performed By: Jaja Vitale RVT Initial EKG: Attestation: I personally reviewed and interpreted this EKG as follows: Comments: This appears to be a junctional rhythm with a ventricular rate of 94 bpm. Discharge Plan Triage Chief Complaint: Lower Extremity Injury ED Provider: Maxi Villalba Dx/Rx/DC Orders Clinical Impression: Pain of left calf Prescriptions: No Action warfarin 5 MG tablet 5 mg PO DAILY RF: 0 Hold Instructions: Follow up for INR tomorrow and hold until further instructed by Dr. Moreno--> INR today was 3.7 brimonidine 1 DROP bottle 1 drp LEFT EYE TID Qty: 1 RF: 0 Auryxia 210 mg iron tablet 3 tab PO TIDCM RF: 0 gabapentin [Neurontin] 100 mg capsule 100 mg PO RF: 0 amiodarone [Pacerone] 200 mg tablet 200 mg PO DAILY Qty: 90 RF: 3 midodrine 5 mg tablet 5 mg PO TID Qty: 270 RF: 3 Primary Care Provider: Pawel Banda Referrals: Pawel Banda MD [Primary Care Provider] - 3-5 Days if not improving Disposition Disposition: Home, Self Care
[2021-06-08 12:01] LABS: International Normalized Ratio 2.4
[2021-06-08 12:07] VITALS: RESP 18
--- NOTE | 2021-06-08 12:53 | ED.RN ---
PT REFUSING TO LEAVE UNLESS HE RECEIVES A DDIMER. DR SIMONS NOTIFIED
[2021-06-08 13:04] VITALS: PULSE 98; RESP 17
== END 2021-06-08 13:06 | disposition home or self-care (01) ==
PROVIDERS: Emergency Provider Emergency Medicine; PCP Internal Medicine
DX: M79.662 Pain in left lower leg (principal); E66.9 Obesity, unspecified; I25.2 Old myocardial infarction; Z86.16 Personal history of COVID-19; Z99.2 Dependence on renal dialysis; Z86.718 Personal history of other venous thrombosis and embolism; Z86.711 Personal history of pulmonary embolism
CPT/HCPCS: 36415; 80053; 85025; 85610; 93005; 93971; 99282; 99283

== ENCOUNTER 2021-06-08 18:02 | Emergency (ER) | payer MEDICARE, MEDICAID, SELFPAY ==
[2021-06-08 18:03] VITALS: BP 118/95; PULSE 94; RESP 18; TEMP 37.1; O2SAT 100; BMI 39.4
[2021-06-08 19:50] LABS: Absolute Lymphocyte Count 1.02 X10^3/uL (0.83-4.51); Absolute Neutrophil Count 3.2 X10^3/uL (2.0-7.7); Basophil# 0.04 X10^3/uL; Basophil% 0.7 % (0-1); Eosinophil# 0.49 X10^3/uL; Eosinophils% 8.3 % (0-5); Hematocrit 35.8 % (40-54); Hemoglobin 10.7 g/dL (13.0-16.5); Lymphocyte # 1.02 X10^3/ul (0.83-4.51); Lymphocyte % 17.4 % (19-41); Mean Corp Hgb Conc 29.9 g/dL (32-36); Mean Corpuscular Hgb 29.2 pg (27.0-32.0); Mean Corpuscular Volume 97.8 fL (80-94); Monocyte# 1.05 X10^3/uL; Monocyte% 17.9 % (0-10); NRBC Flagged by Analyzer 0 % (0-5); Neutrophil # 3.23 X10^3/uL (2.7-7.7); POSITIVE MORPHOLOGY YES; Platelet Count 237 K/mm3 (150-450); RBC Distribution Width CV 19.7 % (11.6-14.6); RBC Distribution Width SD 71.2 fl (35.1-43.9); Red Blood Count 3.66 M/mm3 (4.6-6.2); White Blood Count 5.9 K/mm3 (4.4-11.0)
[2021-06-08 19:51] LABS: Differential Indicated SCAN CRITERIA MET
[2021-06-08 20:11] LABS: ALB/GLOB Ratio 0.5 RATIO (0.9-2.4); AST(SGOT) 20 U/L (15-37); Alanine Aminotransfer ALT/SGPT 29 U/L (16-61); Alkaline Phosphatase 124 U/L (45-117); Anion Gap 9 (5-15); BUN 30 mg/dL (7-18); BUN/Creat Ratio 3.8 RATIO (10-20); Calcium,Total 9.2 mg/dL (8.5-10.1); Chloride 94 mmol/L (98-107); Creatinine, Serum 7.99 mg/dL (0.70-1.30); EST Glomerular Filtration Rate 8 mL/min (>60); Est Glom Filt Rate - Afr Amer 10 mL/min (>60); Estimated Creatinine Clearance 12.82 ml/min; Globulin 5.7 g/dL (2.2-4.2); Glucose 98 mg/dL (74-106); Potassium 4.6 mmol/L (3.5-5.1); Protein, Total 8.7 g/dL (6.4-8.2); Sodium Level 134 mmol/L (136-145)
[2021-06-08] MEDS: Gabapentin 100 MG Capsule PO (20:45)
--- NOTE | 2021-06-08 21:47 | EDS_ITS ---
HPI History of Present Illness Chief Complaint: General Illness Detail of Chief Complaint: Feet pain and I cannot walk Informant: patient Onset/Context/Timing Onset: Days and Weeks Context: - (Patient is not forthcoming with information and is vague) Quality: Burning pain Location: Feet Current Severity: Mild Maximum Severity: Severe Worsened by: Wearing socks or shoes Relieved by: Nothing Associated Symptoms Associated Symptoms: No other symptoms Narrative Narrative: Patient states he is to be ruled out for DVT. He was not forthcoming with information did not tell me he was seen earlier today and had venous duplex study. Patient was informed that he should inform me that he was seen here earlier. He states they did not rule out DVT because they did not get a D- dimer. Patient was informed he will have an elevated D-dimer high likelihood because he has renal failure. The fact that he had a normal venous duplex study rules out a DVT. He denies symptoms of claudication. He denies fever, chills night sweats. He denies bruising easily. He is on an 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 for atrial fibrillation. He also has valvular heart disease. Prior similar symptoms: Yes Recent Illness/Hospitalization: Yes 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) Central retinal artery occlusion of left eye (10/09/20) Chronic kidney disease-mineral and bone disorder Chronic pelvic pain in male Chronic ulcer of back COVID-19 virus detected (03/20/20) Dialysis patient ESRD on hemodialysis Essential (primary) hypertension Expressive aphasia (04/05/20) Hearing loss Hematuria History of bacterial endocarditis History of blood clots History of non-ST elevation myocardial infarction (NSTEMI) (11/08/19) History of pulmonary embolus (PE) History of venous thromboembolism 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 due to renal insufficiency 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 Mechanical complication of arteriovenous fistula surgically created Mitral valve annular calcification Morbidly obese Non compliance w medication regimen Non-healing non-surgical wound Nonrheumatic mitral valve stenosis with insufficiency Obstructive sleep apnea Paroxysmal atrial fibrillation (06/10/20) Paroxysmal atrial flutter 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) Pelvic mass Unspecified symptoms and signs involving cognitive functions and awareness (04/05/20) Home Medications warfarin 5 mg PO DAILY 10/06/20 [History Last Taken 06/03/21] brimonidine 1 drp LEFT EYE TID #1 bottle 10/09/20 [Rx Last Taken 06/03/21] amiodarone 200 mg tablet 200 mg PO DAILY #90 tab 05/23/21 [Rx Last Taken 06/03/21] midodrine 5 mg tablet 5 mg PO TID #270 tab 05/23/21 [Rx Last Taken 06/03/21] Auryxia 3 tab PO TIDCM 05/30/21 [History Last Taken 06/03/21] gabapentin See Rx Instructions .ROUTE .COMPLEX #180 cap 06/08/21 [Rx Last Taken Unknown] gabapentin [Neurontin] 100 mg PO 06/08/21 [History Last Taken Unknown] Allergy/AdvReac Type Severity Reaction Status Date / Time No Known Allergies Allergy Verified 06/08/21 19:16 Family History Other Adopted Surgical History History of cardioversion (12/02/18) history of cather replacement History of herniorrhaphy History of left heart catheterization (09/17/18) History of repair of congenital cleft palate Mechanical complication of dialysis catheter Status post creation of arteriovenous fistula Social History (Updated 06/08/21 @ 21:[address] Dimitri Swan MD) household members: none Smoking Status: Never smoker alcohol intake: never substance use type: marijuana what type of physical activity do you participate in: none ROS ROS ED Constitutional Constitutional ED: Denies chills, fever(s), subjective or sweats Eyes Eyes: Denies blurry vision or change in vision ENT ENT ED: Denies ear pain, rhinorrhea or sore throat Cardiovascular Cardiovascular: Denies chest pain or palpitations Respiratory/Chest Respiratory/Chest: Denies cough, dyspnea, dyspnea on exertion or sputum Gastrointestinal Gastrointestinal: Denies abdominal pain, nausea or vomiting Musculoskeletal Musculoskeletal: Reports other Details: Feet pain ; Denies arthralgias, back pain, myalgias or neck pain Integumentary Reports rash Neurologic Neurologic: Reports paresthesias and weakness; Denies headache(s) Endocrine Endocrinology: Denies polyuria EXAM Physical Exam Const Vital Signs: 06/08/21 18:03 06/08/21 19:41 Temperature 98.7 F Temperature Source Oral Pulse Rate 94 Respiratory Rate 18 Respiratory Effort Normal Respiratory Pattern Normal Blood Pressure 118/95 H Blood Pressure Mean 102 Pulse Ox 100 Oxygen Delivery Method Room Air Positive well nourished, well developed, obese and unkempt General Appearance ED: unkempt and well developed Nutritional Appearance: obese HEENT Reports TM's clear and moist mucous membranes HEENT Narrative: Head is atraumatic normocephalic. Nares patent. Posterior pharynx unremarkable. Tympanic Membrane ED: Yes TM's clear Eyes PERRL and EOMs intact bilaterally General Eye ED: Negative for scleral icterus Neck no lymphadenopathy, supple and no JVD Resp normal respiratory effort and clear to auscultation bilaterally Cardio regular rate, regular rhythm, S1 normal heart sound, S2 normal heart sound and no murmurs GI normal to inspection, nondistended, normoactive bowel sounds and non-tender Palpation: soft Back/Spine no CVA tenderness Cervical Spine: Negative for cervical spine tenderness Thoracic Spine / Upper Back: Negative for thoracic spinal tenderness Extremity Negative for normal to inspection Extremity Narrative: Patient has bilateral lymphedema. There is no palpable pulses at the DP or PT. Patient has biphasic flow right PT and mottled phasic flow right DP. There is monophasic flow left PT and biphasic flow left DP. He has stigmata of peripheral arterial disease. He has dry skin. 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 CBC was obtained since he returned and is unremarkable. Patient did not complete dialysis and his creatinine is elevated 7.99. No other laboratory testing was needed. Patient was treated with gabapentin. Was given a prescription for gabapentin. Lab Data Attestation: I reviewed the patient's lab results. Labs: Laboratory Results - last 24 hr 06/08/21 06/08/21 19:45 19:45 WBC 5.9 RBC 3.66 L Hgb 10.7 L Hct 35.8 L MCV 97.8 H MCH 29.2 MCHC 29.9 L RDW Std Deviation 71.2 H RDW Coeff of Lance 19.7 H Plt Count 237 MPV 10.0 Immature Gran % (Auto) 0.700 Neut % (Auto) 55.0 Lymph % (Auto) 17.4 L Vance % (Auto) 17.9 H Eos % (Auto) 8.3 H Baso % (Auto) 0.7 Absolute Neuts (auto) 3.2 Absolute Lymphs (auto) 1.02 Nucleated RBC % 0 Differential Comment Sodium 134 L Potassium 4.6 Chloride 94 L Carbon Dioxide 31.0 Anion Gap 9 BUN 30 H Creatinine 7.99 H* Estim Creat Clear Calc 12.82 Est GFR (MDRD) Af Amer 10 L Est GFR (MDRD) Non-Af 8 L BUN/Creatinine Ratio 3.8 L Glucose 98 Calcium 9.2 Total Bilirubin 0.40 AST 20 ALT 29 Alkaline Phosphatase 124 H Total Protein 8.7 H Albumin 3.0 L Globulin 5.7 H Albumin/Globulin Ratio 0.5 L Discharge Plan Triage Chief Complaint: General Illness ED Provider: Dimitri Swan Dx/Rx/DC Orders Clinical Impression: Neuropathy Instructions: ED Neuropathy, Peripheral Prescriptions: New gabapentin 100 mg capsule See Rx Instructions .ROUTE .COMPLEX Qty: 180 RF: 0 No Action warfarin 5 MG tablet 5 mg PO DAILY RF: 0 Hold Instructions: Follow up for INR tomorrow and hold until further instructed by Dr. Moreno--> INR today was 3.7 brimonidine 1 DROP bottle 1 drp LEFT EYE TID Qty: 1 RF: 0 Auryxia 210 mg iron tablet 3 tab PO TIDCM RF: 0 gabapentin [Neurontin] 100 mg capsule 100 mg PO RF: 0 amiodarone [Pacerone] 200 mg tablet 200 mg PO DAILY Qty: 90 RF: 3 midodrine 5 mg tablet 5 mg PO TID Qty: 270 RF: 3 Primary Care Provider: Pawel Banda Referrals: Pawel Banda MD [Primary Care Provider] - Disposition Disposition: Home, Self Care
--- NOTE | 2021-06-08 21:56 | EX.ED.DYSGE1 ---
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) Central retinal artery occlusion of left eye (10/09/20) Chronic kidney disease-mineral and bone disorder Chronic pelvic pain in male Chronic ulcer of back COVID-19 virus detected (03/20/20) Dialysis patient ESRD on hemodialysis Essential (primary) hypertension Expressive aphasia (04/05/20) Hearing loss Hematuria History of bacterial endocarditis History of blood clots History of non-ST elevation myocardial infarction (NSTEMI) (11/08/19) History of pulmonary embolus (PE) History of venous thromboembolism 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 due to renal insufficiency 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 Mechanical complication of arteriovenous fistula surgically created Mitral valve annular calcification Morbidly obese Non compliance w medication regimen Non-healing non-surgical wound Nonrheumatic mitral valve stenosis with insufficiency Obstructive sleep apnea Paroxysmal atrial fibrillation (06/10/20) Paroxysmal atrial flutter 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) Pelvic mass Unspecified symptoms and signs involving cognitive functions and awareness (04/05/20) Home Medications warfarin 5 mg PO DAILY 10/06/20 [History Last Taken 06/03/21] brimonidine 1 drp LEFT EYE TID #1 bottle 10/09/20 [Rx Last Taken 06/03/21] amiodarone 200 mg tablet 200 mg PO DAILY #90 tab 05/23/21 [Rx Last Taken 06/03/21] midodrine 5 mg tablet 5 mg PO TID #270 tab 05/23/21 [Rx Last Taken 06/03/21] Auryxia 3 tab PO TIDCM 05/30/21 [History Last Taken 06/03/21] gabapentin See Rx Instructions .ROUTE .COMPLEX #180 cap 06/08/21 [Rx Last Taken Unknown] gabapentin [Neurontin] 100 mg PO 06/08/21 [History Last Taken Unknown] Allergy/AdvReac Type Severity Reaction Status Date / Time No Known Allergies Allergy Verified 06/08/21 19:16 Family History Other Adopted Surgical History History of cardioversion (12/02/18) history of cather replacement History of herniorrhaphy History of left heart catheterization (09/17/18) History of repair of congenital cleft palate Mechanical complication of dialysis catheter Status post creation of arteriovenous fistula Social History (Updated 06/08/21 @ 21:[address] Dimitri Swan MD) household members: none Smoking Status: Never smoker alcohol intake: never substance use type: marijuana what type of physical activity do you participate in: none EXAM Physical Exam Const Vital Signs: 06/08/21 18:03 06/08/21 19:41 Temperature 98.7 F Temperature Source Oral Pulse Rate 94 Respiratory Rate 18 Respiratory Effort Normal Respiratory Pattern Normal Blood Pressure 118/95 H Blood Pressure Mean 102 Pulse Ox 100 Oxygen Delivery Method Room Air MDM MDM Lab Data Labs: Laboratory Results - last 24 hr 06/08/21 06/08/21 19:45 19:45 WBC 5.9 RBC 3.66 L Hgb 10.7 L Hct 35.8 L MCV 97.8 H MCH 29.2 MCHC 29.9 L RDW Std Deviation 71.2 H RDW Coeff of Lance 19.7 H Plt Count 237 MPV 10.0 Immature Gran % (Auto) 0.700 Neut % (Auto) 55.0 Lymph % (Auto) 17.4 L [place] % (Auto) 17.9 H Eos % (Auto) 8.3 H Baso % (Auto) 0.7 Absolute Neuts (auto) 3.2 Absolute Lymphs (auto) 1.02 Nucleated RBC % 0 Differential Comment Sodium 134 L Potassium 4.6 Chloride 94 L Carbon Dioxide 31.0 Anion Gap 9 BUN 30 H Creatinine 7.99 H* Estim Creat Clear Calc 12.82 Est GFR (MDRD) Af Amer 10 L Est GFR (MDRD) Non-Af 8 L BUN/Creatinine Ratio 3.8 L Glucose 98 Calcium 9.2 Total Bilirubin 0.40 AST 20 ALT 29 Alkaline Phosphatase 124 H Total Protein 8.7 H Albumin 3.0 L Globulin 5.7 H Albumin/Globulin Ratio 0.5 L EKG Initial EKG: Attestation: I personally reviewed and interpreted this EKG as follows: Interpretation: Sinus Rhythm (The EKG is remarkable for prolonged PT. Ventricular rate is 93. Cures duration 84 ms. QT duration 396 ms. Rhythm is accelerated junctional.) Discharge Plan Triage Chief Complaint: General Illness ED Provider: Dimitri Swan Dx/Rx/DC Orders Clinical Impression: Neuropathy Instructions: ED Neuropathy, Peripheral Prescriptions: New gabapentin 100 mg capsule See Rx Instructions .ROUTE .COMPLEX Qty: 180 RF: 0 No Action warfarin 5 MG tablet 5 mg PO DAILY RF: 0 Hold Instructions: Follow up for INR tomorrow and hold until further instructed by Dr. Moreno--> INR today was 3.7 brimonidine 1 DROP bottle 1 drp LEFT EYE TID Qty: 1 RF: 0 Auryxia 210 mg iron tablet 3 tab PO TIDCM RF: 0 gabapentin [Neurontin] 100 mg capsule 100 mg PO RF: 0 amiodarone [Pacerone] 200 mg tablet 200 mg PO DAILY Qty: 90 RF: 3 midodrine 5 mg tablet 5 mg PO TID Qty: 270 RF: 3 Primary Care Provider: Pawel Banda Referrals: Pawel Banda MD [Primary Care Provider] - Disposition Disposition: Home, Self Care
[2021-06-08 22:12] VITALS: RESP 18
== END 2021-06-08 22:33 | disposition home or self-care (01) ==
PROVIDERS: Emergency Provider Emergency Medicine; PCP Internal Medicine
DX: G62.9 Polyneuropathy, unspecified (principal); I25.2 Old myocardial infarction; E66.9 Obesity, unspecified; I48.92 Unspecified atrial flutter; I48.0 Paroxysmal atrial fibrillation; N18.6 End stage renal disease; Z86.16 Personal history of COVID-19; Z79.01 Long term (current) use of 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s; Z79.899 Other long term (current) drug therapy; Z86.711 Personal history of pulmonary embolism; Z86.718 Personal history of other venous thrombosis and embolism; Z99.2 Dependence on renal dialysis
CPT/HCPCS: 36415; 80053; 85025; 99283

== ENCOUNTER 2021-06-21 11:15 | Outpatient (RCR) | payer MEDICARE, MEDICAID, SELFPAY ==
[2021-05-30 00:34] VITALS: BP 136/67; PULSE 94; RESP 22; TEMP 36.8; BMI 40.1
[2021-05-31 09:21] VITALS: BP 109/56; PULSE 97; RESP 20; TEMP 36.6; BMI 40.1
--- NOTE | 2021-05-31 13:28 | PCM.WC.PN ---
History of Present Illness Date of Service: 05/31/21 Chief Complaint: follow up R lower Back wound History of Wound: Mr. Weston is a 41 well known to me and who is currently a transfer of care to al due to conflicting dates for Wound care and dialysis. He has been seen her for right sided back wound. Currently in the fold of his right back. Initial assumption after ER visit was for shingles. He has been receiving care here and is currently on Epifix weekly. He reports more pain in the area and was recently at the ER. At this time, he denies chills, fever, nausea or vomiting. Subjective Subjective No new concerns at this time. Dressings done as recommended. Objective Data Objective Data Vital Signs: Vital Signs Temp Pulse Resp BP 97.8 F 97 20 H 109/56 L 05/31/21 09:21 05/31/21 09:21 05/31/21 09:21 05/31/21 09:21 Weight: 289 lb Body Mass Index (BMI) 40.1 Charges/Coding Procedures Integumentary 111xxx-113xx: [id number] Yany subq tissue 20 sq cm/< Physical Exam Const alert, oriented x3 and no apparent distress General Appearance: cooperative, comfortable and well kempt HEENT normocephalic and head/scalp atraumatic Head and Scalp: normal to inspection, normocephalic and atraumatic Resp normal respiratory effort Effort and Inspection: able to speak in complete sentences Skin Wounds: wounds noted Neuro oriented x3, CN's II-XII intact bilaterally and moves all extremities Psych mental status grossly normal Appearance: grossly normal Attitude: calm Activity / Motor Behavior: appropriate eye contact Debridement Note Debridement Note Wound debrided: Right Flank /Mid Back Type of Debridement: Excisional debridement Anesthesia Used: 5% Lidocaine Gel Depth: Down to and including healthy tissue and in the subcutaneous layer Percentage of wound debrided: 100 Instrument Used: 5mm curette Tissue Removed: Slough and devitalized tissue Severity: Fat Layer Exposed Amount of bleeding with debridement: Mild Bleeding Controlled with: Pressure Patient tolerated procedure: Patient tolerated procedure well Post-Debridement Measurements and Additional Note: Post-Debridement Measurements/Treatment GRISELDA - Nurse 1 - General Ulcer Assessment Start: 05/31/21 09:21 Freq: Status: Active Protocol: FAISAL Activity Type Activity Date Activity User E-Sign Co-Sign Detail Recorded Client Recorded Date Recorded By Document 05/31/21 09:21 DL [id number] 05/31/21 09:23 DL 05/31/21 09:21 WC - Today's Visit Information Type of service Follow-up Visit (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/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 ) Arrival Mode Ambulatory Transfer Assistance None Patient Identification Verified (Name & Yes ) Patient Requires Transmission-Based No Precautions Height and Weight Body Mass Index (BMI) 40.1 BMI Classification Obese Vital Signs Temperature (97.8 F-99.1 F) 97.8 F Temperature Source Temporal Pulse Rate (60-100) 97 Pulse Location Apical Respiratory Rate (12-18) 20 H Respiratory rate source Observation Blood Pressure (90/60-120/80) 109/56 L Blood Pressure Mean (mm Hg) 73 Source Monitor History Since Last Visit- (Skip if this is Patient's initial visit) Have you changed medications since your No last visit? Any new allergies or adverse reactions No Signs or symptoms of abuse and/or No neglect since last visit Have you been in the hospital since your No last visit? Has dressing in place as prescribed Yes Has compression in place as prescribed N/A Has offloadiing in place as prescribed N/A Experienced any changes in pain level or No management Pain Scale: 0-10 Numeric Is Patient Pain Free? Yes - Nurse 1 - General Ulcer Measurement Start: 05/31/21 09:21 Freq: Status: Active Protocol: Activity Type Activity Date Activity User E-Sign Co-Sign Detail Recorded Client Recorded Date Recorded By Document 05/31/21 09:21 DL [id number] 05/31/21 09:23 DL 05/31/21 09:21 Wound Center Nurse 1 #2 right lower back -Current Size (cm) - Length 3 -Current Size (cm) - Width 6.5 -Current Size (cm) - Depth 0.1 -Total Square Cm 19.5 -Photo Taken No -Exudate Amt Medium -Exudate Type Yellow/Green -Wound Margin Distinct, Outline Attached -Granulation Amt Large (67-100%) -Granulation Quality Red -Necrosis Amt Medium (34-66%) -Necrotic Tissue Type Eschar -Structure Exposed None/Limited to Skin Breakdown -Texture (Skye-wound Skin Appearance) Scarring -Moisture (Skye-wound Skin Appearance) No Abnormality -Color (Skye-wound Skin Appearance) No Abnormality -Tenderness on Palpation (Skye-wound No Skin Appearance) -Ulcer Cleansing Rinsed/ Irrigated with Saline -Foul Odor after Cleansing No -Anesthetic Used 4% Lidocaine Solution,5% Lidocaine Gel WC - Nurse 2 - General Ulcer CM Notes Start: 05/31/21 09:21 Freq: Status: Active Protocol: Activity Type Activity Date Activity User E-Sign Co-Sign Detail Recorded Client Recorded Date Recorded By Document 05/31/21 09:46 DE [id number] 05/31/21 09:49 DE 05/31/21 09:46 Wound Center Nurse 2 -Time 09:46 -Correct Patient Yes -Correct Side, Site, Position Yes -Correct Procedure Yes -Procedure Performed Yes -Type of Procedure Debridement -Clinical Debridement Subcutaneous -Tissue Removed Subcutaneous -Post Debridement (cm) - Length 2.5 -Post Debridement (cm) - Width 6.0 -Post Debridement (cm) - Depth 0.1 -Total Square (Post) (cm) 15.00 -Area of Debridement (cm) - Length 2.5 -Area of Debridement (cm) - Width 6.0 -Total Square (Area) (cm) 15.00 -Tunneling No -Undermining/Tunneling No -Circular Undermining No -Wound/Ulcer Outcome Not Healed -Ulcer Cleansing Rinsed/ Irrigated with Saline -Foul Odor after Cleansing No -Bioengineered Tissue No -Bleeding Controlled with Pressure -Offloading No -Treatment Response Procedure Tolerated Well -Debridement - Subq, 1st 20sq cm Yes Pain Scale: 0-10 Numeric Is Patient Pain Free? Yes - Nurse 3 - General Ulcer D/C NN Start: 05/31/21 09:21 Freq: Status: Active Protocol: Activity Type Activity Date Activity User E-Sign Co-Sign Detail Recorded Client Recorded Date Recorded By Document 05/31/21 10:00 DL [id number] 05/31/21 10:00 DL 05/31/21 10:00 Wound Care Nurse 3 #2 right lower back -Ulcer Cleansing Rinsed/ Irrigated with Saline -Foul Odor after Cleansing No -Primary Dressing Applied Aquacel AG 4x4, Mepilex Border -Aquacel AG 4x4 1 -Mepilex Border 1 Treatment Response Procedure Tolerated Well Pain Scale: 0-10 Numeric Is Patient Pain Free? Yes WC - Visit Discharge Discharge Condition Stable Ambulatory Status Ambulatory Transportation Private Auto Assessment/Plan Assessment/Plan (1) Chronic ulcer of back: CODE(S): L98.429 - Non-pressure chronic ulcer of back with unspecified severity (2) ESRD on hemodialysis: CODE(S): N18.6 - End stage renal disease; Z99.2 - Dependence on renal dialysis (3) Paroxysmal atrial fibrillation: CODE(S): I48.0 - Paroxysmal atrial fibrillation PLAN: Debridement done as documented above, procedure was well-tolerated. Some improvement noted this week. Continue Aquacel Ag, moistened. Cover with gauze. Change daily. Continue gabapentin as needed for pain. Adjusted for HD. Continue adequate protein intake and offloading. His questions were answered and he was advised to call with any further questions or concerns. Follow-up in 1 week. This note was generated with [employer] dictation software. It may contain incorrect words, spelling, and punctuation that were not noted in checking the note before signing.
[2021-06-07 08:28] VITALS: BP 92/59; PULSE 70; TEMP 36.2; BMI 40.1
--- NOTE | 2021-06-07 08:49 | PCM.WC.PN ---
History of Present Illness Date of Service: 06/07/21 Chief Complaint: follow up R lower Back wound History of Wound: Mr. Weston is a 41 well known to me and who is currently a transfer of care to al due to conflicting dates for Wound care and dialysis. He has been seen her for right sided back wound. Currently in the fold of his right back. Initial assumption after ER visit was for shingles. He has been receiving care here and is currently on Epifix weekly. He reports more pain in the area and was recently at the ER. At this time, he denies chills, fever, nausea or vomiting. Subjective Subjective Stable ulcer. No new concerns at this time. Objective Data Objective Data Vital Signs: Vital Signs Temp Pulse Resp BP 97.2 F L 70 20 H 92/59 L 06/07/21 08:28 06/07/21 08:28 05/31/21 09:21 06/07/21 08:28 Weight: 289 lb Body Mass Index (BMI) 40.1 Charges/Coding Procedures Integumentary [id number]: [id number] Yany subq tissue 20 sq cm/< Physical Exam Const alert, oriented x3 and no apparent distress General Appearance: cooperative, comfortable and well kempt HEENT normocephalic and head/scalp atraumatic Head and Scalp: normal to inspection, normocephalic and atraumatic Resp normal respiratory effort Effort and Inspection: able to speak in complete sentences Skin Wounds: wounds noted Neuro oriented x3, CN's II-XII intact bilaterally and moves all extremities Psych mental status grossly normal Appearance: grossly normal Attitude: calm Activity / Motor Behavior: appropriate eye contact Debridement Note Debridement Note Wound debrided: Right flank/mid back Type of Debridement: Excisional debridement Anesthesia Used: 5% Lidocaine Gel Depth: Down to and including healthy tissue and in the subcutaneous layer Percentage of wound debrided: 100 Instrument Used: 5mm curette Tissue Removed: Slough and devitalized tissue Severity: Fat Layer Exposed Amount of bleeding with debridement: Mild Bleeding Controlled with: Pressure Patient tolerated procedure: Patient tolerated procedure well Post-Debridement Measurements and Additional Note: Post-Debridement Measurements/Treatment GRISELDA - Nurse 1 - General Ulcer Assessment Start: 05/31/21 09:21 Freq: Status: Active Protocol: FAISAL Activity Type Activity Date Activity User E-Sign Co-Sign Detail Recorded Client Recorded Date Recorded By Document 05/31/21 09:21 TAMIE [id number] 05/31/21 09:23 DL Document 06/07/21 08:28 TIGRE [id number] 06/07/21 08:32 AK 05/31/21 06/07/21 09:21 08:28 - Today's Visit Information Type of service Follow-up Visit Follow-up Visit (Physician/EDUCATIONAL MANAGER (Physician/EDUCATIONAL MANAGER ) ) Arrival Mode Ambulatory Ambulatory Transfer Assistance None Patient Identification Verified (Name & Yes Yes ) Patient Requires Transmission-Based No No Precautions Safety Precautions NA Height and Weight Body Mass Index (BMI) 40.1 40.1 BMI Classification Obese Obese Vital Signs Temperature (97.8 F-99.1 F) 97.8 F 97.2 F L Temperature Source Temporal Temporal Pulse Rate (60-100) 97 70 Pulse Location Apical Monitor Respiratory Rate (12-18) 20 H Respiratory rate source Observation Blood Pressure (90/60-120/80) 109/56 L 92/59 L Blood Pressure Mean (mm Hg) 73 70 Source Monitor Monitor History Since Last Visit- (Skip if this is Patient's initial visit) Have you changed medications since your No No last visit? Any new allergies or adverse reactions No No Had a fall/change in ADL's that may No increase risk of falls Signs or symptoms of abuse and/or No No neglect since last visit Have you been in the hospital since your No No last visit? Has dressing in place as prescribed Yes Yes Has compression in place as prescribed N/A N/A Has offloadiing in place as prescribed N/A N/A Experienced any changes in pain level or No No management Left Footwear Regular Shoe Right Footwear Regular Shoe Pain Scale: 0-10 Numeric Is Patient Pain Free? Yes - Nurse 1 - General Ulcer Measurement Start: 05/31/21 09:21 Freq: Status: Active Protocol: Activity Type Activity Date Activity User E-Sign Co-Sign Detail Recorded Client Recorded Date Recorded By Document 05/31/21 09:21 TAMIE [id number] 05/31/21 09:23 Document 06/07/21 08:28 TIGRE [id number] 06/07/21 08:32 TIGRE 05/31/21 06/07/21 09:21 08:28 Wound Center Nurse 1 #2 right lower back -Combined with other wound No -Current Size (cm) - Length 3 2.7 -Current Size (cm) - Width 6.5 6 -Current Size (cm) - Depth 0.1 0.1 -Total Square Cm 19.5 16.2 -Photo Taken No No -Epithelialization None Present -Tunneling No -Undermining/Tunneling No -Circular Undermining No -Change in Wound Grade/Stage No -Exudate Amt Medium Large -Exudate Type Yellow/Green Serosanguineous -Wound Margin Distinct, Distinct, Outline Outline Attached Attached -Granulation Amt Large (67-100%) None Present (0 %) -Granulation Quality Red -Slough/Fibrin Yes -Necrosis Amt Medium (34-66%) Medium (34-66%) -Necrotic Tissue Type Eschar Adherent Slough -Structure Exposed None/Limited to N/A Skin Breakdown -Texture (Skye-wound Skin Appearance) Scarring No Abnormality, Assessed -Moisture (Skye-wound Skin Appearance) No Abnormality No Abnormality, Assessed -Color (Skye-wound Skin Appearance) No Abnormality No Abnormality, Assessed -Temperature (Skye-wound Skin No Abnormality Appearance) (Pt Warm) -Tenderness on Palpation (Skye-wound No Yes: gabapentin Skin Appearance) is not touching the pain -Ulcer Cleansing Rinsed/ Rinsed/ Irrigated with Irrigated with Saline Saline -Foul Odor after Cleansing No -Anesthetic Used 4% Lidocaine 5% Lidocaine Solution,5% Gel Lidocaine Gel WC - Nurse 2 - General Ulcer CM Notes Start: 05/31/21 09:21 Freq: Status: Active Protocol: Activity Type Activity Date Activity User E-Sign Co-Sign Detail Recorded Client Recorded Date Recorded By Document 05/31/21 09:46 KS [id number] 05/31/21 09:49 MT Document 06/07/21 08:33 MW [id number] 06/07/21 08:37 MW 05/31/21 06/07/21 09:46 08:33 Wound Center Nurse 2 #2 right lower back -Time 09:46 08:33 -Correct Patient Yes Yes -Correct Side, Site, Position Yes Yes -Correct Procedure Yes Yes -Procedure Performed Yes Yes -Type of Procedure Debridement Debridement -Clinical Debridement Subcutaneous Subcutaneous -Tissue Removed Subcutaneous Subcutaneous -Post Debridement (cm) - Length 2.5 2.6 -Post Debridement (cm) - Width 6.0 5.8 -Post Debridement (cm) - Depth 0.1 0.1 -Total Square (Post) (cm) 15.00 15.08 -Area of Debridement (cm) - Length 2.5 2.6 -Area of Debridement (cm) - Width 6.0 5.8 -Total Square (Area) (cm) 15.00 15.08 -Tunneling No No -Undermining/Tunneling No No -Circular Undermining No No -Wound/Ulcer Outcome Not Healed Not Healed -Ulcer Cleansing Rinsed/ Rinsed/ Irrigated with Irrigated with Saline Saline -Foul Odor after Cleansing No No -Bioengineered Tissue No No -Bleeding Controlled with Pressure Pressure -Offloading No No -Treatment Response Procedure Procedure Tolerated Well Tolerated Well -Debridement - Subq, 1st 20sq cm Yes Yes Pain Scale: 0-10 Numeric Is Patient Pain Free? Yes Yes - Nurse 3 - General Ulcer D/C NN Start: 05/31/21 09:21 Freq: Status: Active Protocol: Activity Type Activity Date Activity User E-Sign Co-Sign Detail Recorded Client Recorded Date Recorded By Document 05/31/21 10:00 DL [id number] 05/31/21 10:00 DL Document 06/07/21 08:43 KR [id number] 06/07/21 08:43 KR 05/31/21 06/07/21 10:00 08:43 Wound Care Nurse 3 #2 right lower back -Ulcer Cleansing Rinsed/ Irrigated with Saline -Foul Odor after Cleansing No -Primary Dressing Applied Aquacel AG 4x4, Aquacel AG 4x4, Mepilex Border Mepilex Border, NonAdherent Contact Layer -Primary Dressing Covered/Secured with Dry Gauze, Secured with Tape -Aquacel AG 4x4 1 1 -Mepilex Border 1 1 Treatment Response Procedure Tolerated Well Pain Scale: 0-10 Numeric Is Patient Pain Free? Yes Yes - Visit Discharge Discharge Condition Stable Stable Ambulatory Status Ambulatory Ambulatory Transportation Private Auto Private Auto Assessment/Plan Assessment/Plan (1) Chronic ulcer of back: CODE(S): L98.429 - Non-pressure chronic ulcer of back with unspecified severity (2) ESRD on hemodialysis: CODE(S): N18.6 - End stage renal disease; Z99.2 - Dependence on renal dialysis (3) Paroxysmal atrial fibrillation: CODE(S): I48.0 - Paroxysmal atrial fibrillation PLAN: Debridement done as documented above, procedure was well-tolerated. Some improvement noted this week. Continue Aquacel Ag, moistened. Adaptic over top. Cover with gauze. Change daily. Continue gabapentin as needed for pain. Adjusted for HD. Continue adequate protein intake and offloading. His questions were answered and he was advised to call with any further questions or concerns. Follow-up in 1 week. This note was generated with [employer] dictation software. It may contain incorrect words, spelling, and punctuation that were not noted in checking the note before signing.
[2021-06-07 09:00] LABS: Bedside Glucose 87 mg/dL (70-110)
[2021-06-14 09:25] VITALS: BP 95/67; PULSE 107; RESP 18; TEMP 36.2; BMI 40.1
--- NOTE | 2021-06-14 10:36 | PN.PCM_ITS ---
History of Present Illness Date of Service: 06/14/21 Chief Complaint: follow up R lower Back wound History of Wound: Mr. Weston is a 41 well known to me and who is currently a transfer of care to [place] due to conflicting dates for Wound care and dialysis. He has been seen her for right sided back wound. Currently in the fold of his right back. Initial assumption after ER visit was for shingles. He has been receiving care here and is currently on Epifix weekly. He reports more pain in the area and was recently at the ER. At this time, he denies chills, fever, nausea or vomiting. Subjective Subjective Stable ulcer. No new concerns at this time. Objective Data Objective Data Vital Signs: Vital Signs Temp Pulse Resp BP 97.1 F L 107 H 18 95/67 06/14/21 09:25 06/14/21 09:25 06/14/21 09:25 06/14/21 09:25 Oxygen Delivery Method Room Air Weight: 289 lb Body Mass Index (BMI) 40.1 Charges/Coding Procedures Integumentary 111xxx-113xx: [id number] Yany subq tissue 20 sq cm/< Physical Exam Const alert, oriented x3 and no apparent distress General Appearance: cooperative, comfortable and well kempt HEENT normocephalic and head/scalp atraumatic Head and Scalp: normal to inspection, normocephalic and atraumatic Resp normal respiratory effort Effort and Inspection: able to speak in complete sentences Skin Wounds: wounds noted Neuro oriented x3, CN's II-XII intact bilaterally and moves all extremities Psych mental status grossly normal Appearance: grossly normal Attitude: calm Activity / Motor Behavior: appropriate eye contact Debridement Note Debridement Note Wound debrided: Right flank/upper back Type of Debridement: Excisional debridement Anesthesia Used: 4% Lidocaine Solution Depth: Down to and including healthy tissue and in the subcutaneous layer Percentage of wound debrided: 100 Instrument Used: 5mm curette Tissue Removed: Slough and devitalized tissue Severity: Fat Layer Exposed Bleeding Controlled with: Pressure Patient tolerated procedure: Patient tolerated procedure well Post-Debridement Measurements and Additional Note: Post-Debridement Measurements/Treatment GRISELDA - Nurse 1 - General Ulcer Assessment Start: 05/31/21 09:21 Freq: Status: Active Protocol: FAISAL Activity Type Activity Date Activity User E-Sign Co-Sign Detail Recorded Client Recorded Date Recorded By Document 05/31/21 09:21 DL [id number] 05/31/21 09:23 DL Document 06/07/21 08:28 AK [id number] 06/07/21 08:32 AK Document 06/14/21 09:25 BMF [id number] 06/14/21 09:36 BMF 05/31/21 06/07/21 06/14/21 09:21 08:28 09:25 WC - Today's Visit Information Type of service Follow-up Visit Follow-up Visit Follow-up Visit (Physician/DEVELOPMENTAL EDUCATION INSTRUCTOR (Physician/DEVELOPMENTAL EDUCATION INSTRUCTOR (Physician/DEVELOPMENTAL EDUCATION INSTRUCTOR ) ) ) Arrival Mode Ambulatory Ambulatory Cane,Wheelchair Transfer Assistance None None Patient Identification Verified (Name & Yes Yes Yes ) Patient Requires Transmission-Based No No No Precautions Safety Precautions NA Height and Weight Body Mass Index (BMI) 40.1 40.1 40.1 BMI Classification Obese Obese Obese Vital Signs Temperature (97.8 F-99.1 F) 97.8 F 97.2 F L 97.1 F L Temperature Source Temporal Temporal Temporal Pulse Rate (60-100) 97 70 107 H Pulse Location Apical Monitor Monitor Respiratory Rate (12-18) 20 H 18 Respiratory rate source Observation Observation Oxygen Delivery Method Room Air Blood Pressure (90/60-120/80) 109/56 L 92/59 L 95/67 Blood Pressure Mean (mm Hg) 73 70 76 Source Monitor Monitor Monitor Position Sitting Blood Pressure Location Right Forearm History Since Last Visit- (Skip if this is Patient's initial visit) Have you changed medications since your No No No last visit? Any new allergies or adverse reactions No No No Had a fall/change in ADL's that may No No increase risk of falls Signs or symptoms of abuse and/or No No No neglect since last visit Have you been in the hospital since your No No No last visit? Has dressing in place as prescribed Yes Yes Yes Has compression in place as prescribed N/A N/A N/A Has offloadiing in place as prescribed N/A N/A N/A Experienced any changes in pain level or No No No management Left Footwear Regular Shoe Regular Shoe Right Footwear Regular Shoe Regular Shoe Pain Scale: 0-10 Numeric Is Patient Pain Free? Yes Yes WC - Nurse 1 - General Ulcer Measurement Start: 05/31/21 09:21 Freq: Status: Active Protocol: Activity Type Activity Date Activity User E-Sign Co-Sign Detail Recorded Client Recorded Date Recorded By Document 05/31/21 09:21 DL [id number] 05/31/21 09:23 DL Document 06/07/21 08:28 AK [id number] 06/07/21 08:32 AK Document 06/14/21 09:25 [facility] [id number] 06/14/21 09:36 [facility] 05/31/21 06/07/21 06/14/21 09:21 08:28 09:25 Wound Center Nurse 1 #2 right lower back -Combined with other wound No No -Current Size (cm) - Length 3 2.7 3.4 -Current Size (cm) - Width 6.5 6 7 -Current Size (cm) - Depth 0.1 0.1 0.2 -Total Square Cm 19.5 16.2 23.8 -Photo Taken No No No -Epithelialization None Present None Present -Tunneling No No -Undermining/Tunneling No No -Circular Undermining No No -Change in Wound Grade/Stage No -Exudate Amt Medium Large Medium -Exudate Type Yellow/Green Serosanguineous Serosanguineous -Wound Margin Distinct, Distinct, Distinct, Outline Outline Outline Attached Attached Attached -Granulation Amt Large (67-100%) None Present (0 Medium (34-66%) %) -Granulation Quality Red Sidell -Slough/Fibrin Yes Yes -Necrosis Amt Medium (34-66%) Medium (34-66%) Medium (34-66%) -Necrotic Tissue Type Eschar Adherent Slough Adherent Slough -Structure Exposed None/Limited to N/A Skin Breakdown -Texture (Skye-wound Skin Appearance) Scarring No Abnormality, Assessed, Assessed Scarring -Moisture (Skye-wound Skin Appearance) No Abnormality No Abnormality, Assessed, Dry/ Assessed Scaly -Color (Skye-wound Skin Appearance) No Abnormality No Abnormality, Assessed Assessed -Temperature (Skye-wound Skin No Abnormality No Abnormality Appearance) (Pt Warm) (Pt Warm) -Tenderness on Palpation (Skye-wound No Yes: gabapentin Yes Skin Appearance) is not touching the pain -Ulcer Cleansing Rinsed/ Rinsed/ Rinsed/ Irrigated with Irrigated with Irrigated with Saline Saline Saline -Foul Odor after Cleansing No No -Anesthetic Used 4% Lidocaine 5% Lidocaine 5% Lidocaine Solution,5% Gel Gel Lidocaine Gel WC - Nurse 2 - General Ulcer CM Notes Start: 05/31/21 09:21 Freq: Status: Active Protocol: Activity Type Activity Date Activity User E-Sign Co-Sign Detail Recorded Client Recorded Date Recorded By Document 05/31/21 09:46 MT [id number] 05/31/21 09:49 MT Document 06/07/21 08:33 MW [id number] 06/07/21 08:37 MW Document 06/14/21 09:55 MW [id number] 06/14/21 09:59 MW 05/31/21 06/07/21 06/14/21 09:46 08:33 09:55 Wound Center Nurse 2 #2 right lower back -Time 09:46 08:33 09:55 -Correct Patient Yes Yes Yes -Correct Side, Site, Position Yes Yes Yes -Correct Procedure Yes Yes Yes -Procedure Performed Yes Yes Yes -Type of Procedure Debridement Debridement Debridement -Clinical Debridement Subcutaneous Subcutaneous Subcutaneous -Tissue Removed Subcutaneous Subcutaneous Subcutaneous -Post Debridement (cm) - Length 2.5 2.6 2.5 -Post Debridement (cm) - Width 6.0 5.8 5.8 -Post Debridement (cm) - Depth 0.1 0.1 0.1 -Total Square (Post) (cm) 15.00 15.08 14.50 -Area of Debridement (cm) - Length 2.5 2.6 2.5 -Area of Debridement (cm) - Width 6.0 5.8 5.8 -Total Square (Area) (cm) 15.00 15.08 14.50 -Tunneling No No No -Undermining/Tunneling No No No -Circular Undermining No No No -Wound/Ulcer Outcome Not Healed Not Healed Not Healed -Ulcer Cleansing Rinsed/ Rinsed/ Rinsed/ Irrigated with Irrigated with Irrigated with Saline Saline Saline -Foul Odor after Cleansing No No No -Bioengineered Tissue No No No -Bleeding Controlled with Pressure Pressure Pressure -Offloading No No No -Treatment Response Procedure Procedure Procedure Tolerated Well Tolerated Well Tolerated Well -Debridement - Subq, 1st 20sq cm Yes Yes Yes Pain Scale: 0-10 Numeric Is Patient Pain Free? Yes Yes Yes GRISELDA - Nurse 3 - General Ulcer D/C NN Start: 05/31/21 09:21 Freq: Status: Active Protocol: Activity Type Activity Date Activity User E-Sign Co-Sign Detail Recorded Client Recorded Date Recorded By Document 05/31/21 10:00 DL [id number] 05/31/21 10:00 DL Document 06/07/21 08:43 KR [id number] 06/07/21 08:43 KR Document 06/14/21 10:06 [facility] [id number] 06/14/21 10:06 BM 05/31/21 06/07/21 06/14/21 10:00 08:43 10:06 Wound Care Nurse 3 #2 right lower back -Ulcer Cleansing Rinsed/ Rinsed/ Irrigated with Irrigated with Saline Saline -Foul Odor after Cleansing No No -Primary Dressing Applied Aquacel AG 4x4, Aquacel AG 4x4, Aquacel AG 4x4, Mepilex Border Mepilex Border, Mepilex Border NonAdherent Contact Layer -Primary Dressing Covered/Secured with Dry Gauze, Secured with Tape -Aquacel AG 4x4 1 1 1 -Mepilex Border 1 1 1 Treatment Response Procedure Procedure Tolerated Well Tolerated Well Pain Scale: 0-10 Numeric Is Patient Pain Free? Yes Yes Yes WC - Visit Discharge Discharge Condition Stable Stable Stable Ambulatory Status Ambulatory Ambulatory Cane,Wheelchair Transportation Private Auto Private Auto Private Auto Assessment/Plan Assessment/Plan (1) Chronic ulcer of back: CODE(S): L98.429 - Non-pressure chronic ulcer of back with unspecified severity (2) ESRD on hemodialysis: CODE(S): N18.6 - End stage renal disease; Z99.2 - Dependence on renal dialysis (3) Paroxysmal atrial fibrillation: CODE(S): I48.0 - Paroxysmal atrial fibrillation PLAN: Debridement done as documented above, procedure was well-tolerated. Some improvement noted this week. Continue Aquacel Ag, moistened. Adaptic over top. Cover with gauze. Change daily. Continue gabapentin as needed for pain. Adjusted for HD. Continue adequate protein intake and offloading. His questions were answered and he was advised to call with any further questions or concerns. Follow-up in 1 week. This note was generated with [employer] dictation software. It may contain incorrect words, spelling, and punctuation that were not noted in checking the note before signing.
[2021-06-21 11:01] VITALS: BP 109/58; PULSE 80; TEMP 37; BMI 40.1
--- NOTE | 2021-06-21 12:51 | PN.PCM_ITS ---
History of Present Illness Date of Service: 06/21/21 Chief Complaint: follow up R lower Back wound History of Wound: Mr. Weston is a 41 well known to me and who is currently [place] due to conflicting dates for Wound care and dialysis. He has been seen her for right sided back wound. Currently in the fold of his right back. Initial assumption after ER visit was for shingles. He has been receiving care here and is currently on Epifix weekly. He reports more pain in the area and was recently at the ER. At this time, he denies chills, fever, nausea or vomiting. Subjective Subjective He states that he has been doing dressing as recommended/discussed. No new concerns at this time. No significant change in ulcer. Objective Data Objective Data Vital Signs: Vital Signs Temp Pulse Resp BP 98.6 F 80 18 109/58 L 06/21/21 11:01 06/21/21 11:01 06/14/21 09:25 06/21/21 11:01 Oxygen Delivery Method Room Air Weight: 289 lb Body Mass Index (BMI) 40.1 Charges/Coding Procedures Integumentary 111xxx-113xx: [id number] Yany subq tissue 20 sq cm/< Physical Exam Const alert, oriented x3 and no apparent distress General Appearance: cooperative, comfortable and well kempt HEENT normocephalic and head/scalp atraumatic Head and Scalp: normal to inspection, normocephalic and atraumatic Resp normal respiratory effort Effort and Inspection: able to speak in complete sentences Skin Wounds: wounds noted Neuro oriented x3, CN's II-XII intact bilaterally and moves all extremities Psych mental status grossly normal Appearance: grossly normal Attitude: calm Activity / Motor Behavior: appropriate eye contact Debridement Note Debridement Note Wound debrided: Right mid back/flank Type of Debridement: Excisional debridement Anesthesia Used: 4% Lidocaine Solution and 5% Lidocaine Gel Depth: Down to and including healthy tissue and in the subcutaneous layer Percentage of wound debrided: 100 Instrument Used: 5mm curette Tissue Removed: Slough and devitalized tissue Severity: Fat Layer Exposed Amount of bleeding with debridement: Mild Bleeding Controlled with: Pressure Patient tolerated procedure: Patient tolerated procedure well Post-Debridement Measurements and Additional Note: Post-Debridement Measurements/Treatment GRISELDA - Nurse 1 - General Ulcer Assessment Start: 05/31/21 09:21 Freq: Status: Active Protocol: WC.LOWEXT Activity Type Activity Date Activity User E-Sign Co-Sign Detail Recorded Client Recorded Date Recorded By Document 05/31/21 09:21 DL [id number] 05/31/21 09:23 DL Document 06/07/21 08:28 AK [id number] 06/07/21 08:32 AK Document 06/14/21 09:25 BMF [id number] 06/14/21 09:36 BM Document 06/21/21 11:01 AK [id number] 06/21/21 11:09 AK 05/31/21 06/07/21 06/14/21 09:21 08:28 09:25 WC - Today's Visit Information Type of service Follow-up Visit Follow-up Visit Follow-up Visit (Physician/PROPERTY ADMINISTRATOR (Physician/PROPERTY ADMINISTRATOR (Physician/PROPERTY ADMINISTRATOR ) ) ) Arrival Mode Ambulatory Ambulatory Cane,Wheelchair Transfer Assistance None None Patient Identification Verified (Name & Yes Yes Yes ) Patient Requires Transmission-Based No No No Precautions Safety Precautions NA Height and Weight Body Mass Index (BMI) 40.1 40.1 40.1 BMI Classification Obese Obese Obese Vital Signs Temperature (97.8 F-99.1 F) 97.8 F 97.2 F L 97.1 F L Temperature Source Temporal Temporal Temporal Pulse Rate (60-100) 97 70 107 H Pulse Location Apical Monitor Monitor Respiratory Rate (12-18) 20 H 18 Respiratory rate source Observation Observation Oxygen Delivery Method Room Air Blood Pressure (90/60-120/80) 109/56 L 92/59 L 95/67 Blood Pressure Mean (mm Hg) 73 70 76 Source Monitor Monitor Monitor Position Sitting Blood Pressure Location Right Forearm History Since Last Visit- (Skip if this is Patient's initial visit) Have you changed medications since your No No No last visit? Any new allergies or adverse reactions No No No Had a fall/change in ADL's that may No No increase risk of falls Signs or symptoms of abuse and/or No No No neglect since last visit Have you been in the hospital since your No No No last visit? Has dressing in place as prescribed Yes Yes Yes Has compression in place as prescribed N/A N/A N/A Has offloadiing in place as prescribed N/A N/A N/A Experienced any changes in pain level or No No No management Left Footwear Regular Shoe Regular Shoe Right Footwear Regular Shoe Regular Shoe Pain Scale: 0-10 Numeric Is Patient Pain Free? Yes Yes 06/21/21 11:01 WC - Today's Visit Information Type of service Follow-up Visit (Physician/PROPERTY ADMINISTRATOR ) Arrival Mode Ambulatory Transfer Assistance Patient Identification Verified (Name & Yes ) Patient Requires Transmission-Based No Precautions Safety Precautions NA Height and Weight Body Mass Index (BMI) 40.1 BMI Classification Obese Vital Signs Temperature (97.8 F-99.1 F) 98.6 F Temperature Source Temporal Pulse Rate (60-100) 80 Pulse Location Monitor Respiratory Rate (12-18) Respiratory rate source Oxygen Delivery Method Blood Pressure (90/60-120/80) 109/58 L Blood Pressure Mean (mm Hg) 75 Source Monitor Position Blood Pressure Location History Since Last Visit- (Skip if this is Patient's initial visit) Have you changed medications since your No last visit? Any new allergies or adverse reactions No Had a fall/change in ADL's that may No increase risk of falls Signs or symptoms of abuse and/or No neglect since last visit Have you been in the hospital since your No last visit? Has dressing in place as prescribed Yes Has compression in place as prescribed N/A Has offloadiing in place as prescribed N/A Experienced any changes in pain level or No management Left Footwear Regular Shoe Right Footwear Regular Shoe Pain Scale: 0-10 Numeric Is Patient Pain Free? WC - Nurse 1 - General Ulcer Measurement Start: 05/31/21 09:21 Freq: Status: Active Protocol: Activity Type Activity Date Activity User E-Sign Co-Sign Detail Recorded Client Recorded Date Recorded By Document 05/31/21 09:21 DL [id number] 05/31/21 09:23 DL Document 06/07/21 08:28 AK [id number] 06/07/21 08:32 AK Document 06/14/21 09:25 [facility] [id number] 06/14/21 09:36 BM Document 06/21/21 11:01 AK [id number] 06/21/21 11:09 AK 05/31/21 06/07/21 06/14/21 09:21 08:28 09:25 Wound Center Nurse 1 #2 right lower back -Combined with other wound No No -Current Size (cm) - Length 3 2.7 3.4 -Current Size (cm) - Width 6.5 6 7 -Current Size (cm) - Depth 0.1 0.1 0.2 -Total Square Cm 19.5 16.2 23.8 -Photo Taken No No No -Epithelialization None Present None Present -Tunneling No No -Undermining/Tunneling No No -Circular Undermining No No -Change in Wound Grade/Stage No -Exudate Amt Medium Large Medium -Exudate Type Yellow/Green Serosanguineous Serosanguineous -Wound Margin Distinct, Distinct, Distinct, Outline Outline Outline Attached Attached Attached -Granulation Amt Large (67-100%) None Present (0 Medium (34-66%) %) -Granulation Quality Red [place] -Slough/Fibrin Yes Yes -Necrosis Amt Medium (34-66%) Medium (34-66%) Medium (34-66%) -Necrotic Tissue Type Eschar Adherent Slough Adherent Slough -Structure Exposed None/Limited to N/A Skin Breakdown -Texture (Skye-wound Skin Appearance) Scarring No Abnormality, Assessed, Assessed Scarring -Moisture (Skye-wound Skin Appearance) No Abnormality No Abnormality, Assessed,Dry/ Assessed Scaly -Color (Skye-wound Skin Appearance) No Abnormality No Abnormality, Assessed Assessed -Temperature (Skye-wound Skin No Abnormality No Abnormality Appearance) (Pt Warm) (Pt Warm) -Tenderness on Palpation (Skye-wound No Yes: gabapentin Yes Skin Appearance) is not touching the pain -Ulcer Cleansing Rinsed/ Rinsed/ Rinsed/ Irrigated with Irrigated with Irrigated with Saline Saline Saline -Foul Odor after Cleansing No No -Anesthetic Used 4% Lidocaine 5% Lidocaine 5% Lidocaine Solution,5% Gel Gel Lidocaine Gel 06/21/21 11:01 Wound Center Nurse 1 #2 right lower back -Combined with other wound No -Current Size (cm) - Length 6.4 -Current Size (cm) - Width 3.5 -Current Size (cm) - Depth 0.1 -Total Square Cm 22.40 -Photo Taken No -Epithelialization None Present -Tunneling No -Undermining/Tunneling No -Circular Undermining No -Change in Wound Grade/Stage No -Exudate Amt Large -Exudate Type Serosanguineous -Wound Margin Distinct, Outline Attached -Granulation Amt Medium (34-66%) -Granulation Quality Red -Slough/Fibrin Yes -Necrosis Amt Medium (34-66%) -Necrotic Tissue Type Adherent Slough -Structure Exposed N/A -Texture (Skye-wound Skin Appearance) No Abnormality, Assessed -Moisture (Skye-wound Skin Appearance) No Abnormality, Assessed -Color (Skye-wound Skin Appearance) No Abnormality, Assessed -Temperature (Skye-wound Skin No Abnormality Appearance) (Pt Warm) -Tenderness on Palpation (Skye-wound Yes Skin Appearance) -Ulcer Cleansing Rinsed/ Irrigated with Saline -Foul Odor after Cleansing No -Anesthetic Used 4% Lidocaine Solution,5% Lidocaine Gel WC - Nurse 2 - General Ulcer CM Notes Start: 05/31/21 09:21 Freq: Status: Active Protocol: Activity Type Activity Date Activity User E-Sign Co-Sign Detail Recorded Client Recorded Date Recorded By Document 05/31/21 09:46 MT [id number] 05/31/21 09:49 MT Document 06/07/21 08:33 MW [id number] 06/07/21 08:37 MW Document 06/14/21 09:55 MW [id number] 06/14/21 09:59 MW Document 06/21/21 11:38 MW [id number] 06/21/21 11:41 MW 05/31/21 06/07/21 06/14/21 09:46 08:33 09:55 Wound Center Nurse 2 #2 right lower back -Time 09:46 08:33 09:55 -Correct Patient Yes Yes Yes -Correct Side, Site, Position Yes Yes Yes -Correct Procedure Yes Yes Yes -Procedure Performed Yes Yes Yes -Type of Procedure Debridement Debridement Debridement -Clinical Debridement Subcutaneous Subcutaneous Subcutaneous -Tissue Removed Subcutaneous Subcutaneous Subcutaneous -Post Debridement (cm) - Length 2.5 2.6 2.5 -Post Debridement (cm) - Width 6.0 5.8 5.8 -Post Debridement (cm) - Depth 0.1 0.1 0.1 -Total Square (Post) (cm) 15.00 15.08 14.50 -Area of Debridement (cm) - Length 2.5 2.6 2.5 -Area of Debridement (cm) - Width 6.0 5.8 5.8 -Total Square (Area) (cm) 15.00 15.08 14.50 -Tunneling No No No -Undermining/Tunneling No No No -Circular Undermining No No No -Wound/Ulcer Outcome Not Healed Not Healed Not Healed -Ulcer Cleansing Rinsed/ Rinsed/ Rinsed/ Irrigated with Irrigated with Irrigated with Saline Saline Saline -Foul Odor after Cleansing No No No -Bioengineered Tissue No No No -Bleeding Controlled with Pressure Pressure Pressure -Offloading No No No -Treatment Response Procedure Procedure Procedure Tolerated Well Tolerated Well Tolerated Well -Debridement - Subq, 1st 20sq cm Yes Yes Yes Pain Scale: 0-10 Numeric Is Patient Pain Free? Yes Yes Yes 06/21/21 11:38 Wound Center Nurse 2 #2 right lower back -Time 11:38 -Correct Patient Yes -Correct Side, Site, Position Yes -Correct Procedure Yes -Procedure Performed Yes -Type of Procedure Debridement -Clinical Debridement Subcutaneous -Tissue Removed Subcutaneous -Post Debridement (cm) - Length 2.5 -Post Debridement (cm) - Width 6.0 -Post Debridement (cm) - Depth 0.1 -Total Square (Post) (cm) 15.00 -Area of Debridement (cm) - Length 2.5 -Area of Debridement (cm) - Width 6.0 -Total Square (Area) (cm) 15.00 -Tunneling No -Undermining/Tunneling No -Circular Undermining No -Wound/Ulcer Outcome Not Healed -Ulcer Cleansing Rinsed/ Irrigated with Saline -Foul Odor after Cleansing No -Bioengineered Tissue No -Bleeding Controlled with Pressure -Offloading No -Treatment Response Procedure Tolerated Well -Debridement - Subq, 1st 20sq cm Yes Pain Scale: 0-10 Numeric Is Patient Pain Free? Yes - Nurse 3 - General Ulcer D/C NN Start: 05/31/21 09:21 Freq: Status: Active Protocol: Activity Type Activity Date Activity User E-Sign Co-Sign Detail Recorded Client Recorded Date Recorded By Document 05/31/21 10:00 DL [id number] 05/31/21 10:00 DL Document 06/07/21 08:43 KR [id number] 06/07/21 08:43 KR Document 06/14/21 10:06 [facility] [id number] 06/14/21 10:06 BM Document 06/21/21 11:53 KR [id number] 06/21/21 11:53 KR 05/31/21 06/07/21 06/14/21 10:00 08:43 10:06 Wound Care Nurse 3 #2 right lower back -Ulcer Cleansing Rinsed/ Rinsed/ Irrigated with Irrigated with Saline Saline -Foul Odor after Cleansing No No -Primary Dressing Applied Aquacel AG 4x4, Aquacel AG 4x4, Aquacel AG 4x4, Mepilex Border Mepilex Border, Mepilex Border NonAdherent Contact Layer -Primary Dressing Covered/Secured with Dry Gauze, Secured with Tape -Aquacel Extra -Aquacel AG 4x4 1 1 1 -Mepilex Border 1 1 1 Treatment Response Procedure Procedure Tolerated Well Tolerated Well Pain Scale: 0-10 Numeric Is Patient Pain Free? Yes Yes Yes WC - Visit Discharge Discharge Condition Stable Stable Stable Ambulatory Status Ambulatory Ambulatory Cane,Wheelchair Transportation Private Auto Private Auto Private Auto Accompanied by 06/21/21 11:53 Wound Care Nurse 3 #2 right lower back -Ulcer Cleansing -Foul Odor after Cleansing -Primary Dressing Applied Aquacel Extra, Mepilex Border -Primary Dressing Covered/Secured with -Aquacel Extra 1 -Aquacel AG 4x4 -Mepilex Border 1 Treatment Response Pain Scale: 0-10 Numeric Is Patient Pain Free? Yes WC - Visit Discharge Discharge Condition Stable Ambulatory Status Ambulatory Transportation Private Auto Accompanied by self Assessment/Plan Assessment/Plan (1) Chronic ulcer of back: CODE(S): L98.429 - Non-pressure chronic ulcer of back with unspecified severity (2) ESRD on hemodialysis: CODE(S): N18.6 - End stage renal disease; Z99.2 - Dependence on renal dialysis (3) Paroxysmal atrial fibrillation: CODE(S): I48.0 - Paroxysmal atrial fibrillation PLAN: Debridement done as documented above, procedure was well-tolerated. No significant change this week. Continue Aquacel Ag, moistened. Adaptic over top. Cover with gauze. Change daily. Consider switching to Fibracol/Promogran if there is no change next week as well. Continue gabapentin as needed for pain. Adjusted for HD. Continue adequate protein intake and offloading. His questions were answered and he was advised to call with any further questions or concerns. Follow-up in 1 week. This note was generated with [employer] dictation software. It may contain incorrect words, spelling, and punctuation that were not noted in checking the note before signing.
== END 2021-06-28 23:59 ==
LOC: WC 11:15
PROVIDERS: PCP Internal Medicine; Visit Provider Internal Medicine
DX: L98.422 Non-pressure chronic ulcer of back with fat layer exposed (principal); I48.0 Paroxysmal atrial fibrillation; I48.92 Unspecified atrial flutter; Z79.01 Long term (current) use of 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s; E66.9 Obesity, unspecified; Z68.41 Body mass index [BMI] 40.0-44.9, adult; Z99.2 Dependence on renal dialysis; N18.6 End stage renal disease
CPT/HCPCS: 11042; 36415; 82962; 85610

== ENCOUNTER 2021-06-23 19:10 | Emergency (ER) | payer MEDICARE, MEDICAID, SELFPAY ==
[2021-06-23 19:10] VITALS: BP 116/49; PULSE 95; RESP 16; TEMP 36.6; O2SAT 100; BMI 39.7
--- NOTE | 2021-06-23 21:53 | EKG12_ITS ---
Test Reason : DIZZINESS Blood Pressure : / mmHG Vent. Rate : 092 BPM Atrial Rate : 090 BPM P-R Int : 000 ms QRS Dur : 076 ms QT Int : 382 ms P-R-T Axes : 000 169 059 degrees QTc Int : 472 ms Accelerated Junctional rhythm Low voltage QRS Poor R wave progression Abnormal ECG Confirmed by ADALGISA STAHL, GOGO ([id number]), senior editor MARGARITO CHANDLER ([id number]) on 06/25/2021 1:25:03 PM Referred By: OLEG Confirmed By:GOGO DIANA MD
--- NOTE | 2021-06-23 21:54 | EX.ED.DYSGE1 ---
HPI History of Present Illness Chief Complaint: Dizziness Informant: patient Narrative Narrative: Mr. Weston is a 41-year-old male presenting to the emergency department for the fourth time this month. He states that since Friday he has been experiencing dizziness. I this he means that he has a sensation of lightheadedness and a warm sensation from his chest up to his head particularly when he ambulates that makes him feel like he may pass out. He states that it began Friday is better on Friday and has returned. Is been more persistent today. He is nervous about driving because he does not want to hurt himself. Patient has multiple longstanding medical problems. He is a frequent user to the emergency department. 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) Central retinal artery occlusion of left eye (10/09/20) Chronic kidney disease-mineral and bone disorder Chronic pelvic pain in male Chronic ulcer of back COVID-19 virus detected (03/20/20) Dialysis patient ESRD on hemodialysis Essential (primary) hypertension Expressive aphasia (04/05/20) Hearing loss Hematuria History of bacterial endocarditis History of blood clots History of non-ST elevation myocardial infarction (NSTEMI) (11/08/19) History of pulmonary embolus (PE) History of venous thromboembolism 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 due to renal insufficiency 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 current use of 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 Mechanical complication of arteriovenous fistula surgically created Medication side effects Mitral valve annular calcification Morbidly obese Non compliance w medication regimen Non-healing non-surgical wound Nonrheumatic mitral valve stenosis with insufficiency Obstructive sleep apnea Pain of right lower extremity Paroxysmal atrial fibrillation (06/10/20) Paroxysmal atrial flutter 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) Pelvic mass Unspecified symptoms and signs involving cognitive functions and awareness (04/05/20) Home Medications warfarin 5 mg PO DAILY 10/06/20 [History Last Taken 06/03/21] brimonidine 1 drp LEFT EYE TID #1 bottle 10/09/20 [Rx Last Taken 06/03/21] amiodarone 200 mg tablet 200 mg PO DAILY #90 tab 05/23/21 [Rx Last Taken 06/03/21] midodrine 5 mg tablet 5 mg PO TID #270 tab 05/23/21 [Rx Last Taken 06/03/21] Auryxia 3 tab PO TIDCM 05/30/21 [History Last Taken 06/03/21] gabapentin [Neurontin] 100 mg PO 06/08/21 [History Last Taken Unknown] Allergy/AdvReac Type Severity Reaction Status Date / Time No Known Allergies Allergy Verified 06/23/21 19:12 Family History Other Adopted Surgical History History of cardioversion (12/02/18) history of cather replacement History of herniorrhaphy History of left heart catheterization (09/17/18) History of repair of congenital cleft palate Mechanical complication of dialysis catheter Status post creation of arteriovenous fistula Social History household members: none Smoking Status: Never smoker alcohol intake: never substance use type: marijuana what type of physical activity do you participate in: none ROS ROS ED ROS Narrative Lightheadedness near syncopal feeling Constitutional Constitutional ED: Denies chills or weight loss Eyes Eyes: Denies change in vision or diplopia ENT ENT ED: Denies ear pain, rhinorrhea or sore throat Cardiovascular Cardiovascular: Reports other; Denies chest pain, orthopnea, palpitations or racing heartbeat Respiratory/Chest Respiratory/Chest: Denies cough, dyspnea or orthopnea Gastrointestinal Gastrointestinal: Denies abdominal pain, diarrhea, nausea or vomiting Genitourinary Genitourinary ED: Denies dysuria, hematuria or urinary frequency Musculoskeletal Musculoskeletal: Denies arthralgias or myalgias Integumentary Denies abscess or rash Neurologic Neurologic: Denies headache(s) or weakness Psychiatric Psychiatric: Denies anxiety, depression, suicidal ideation or suicidal thoughts Endocrine Endocrinology: Denies polydipsia, polyphagia or polyuria Allergic/Immunologic Allergic/Immunologic ED: Denies mouth swelling, tongue swelling or urticaria EXAM Physical Exam Const Vital Signs: 06/23/21 19:10 06/23/21 22:38 Temperature 97.8 F Temperature Source Temporal Pulse Rate 95 74 Pulse Rate [Lying] 74 Pulse Rate [Sitting] 87 Pulse Rate [Standing] 53 L Respiratory Rate 16 22 H Blood Pressure 116/49 L 144/93 H Blood Pressure [Lying] 144/93 H Blood Pressure [Sitting] 136/84 H Blood Pressure [Standing] 132/88 H Blood Pressure Mean 71 110 Blood Pressure Mean [Lying] 110 Blood Pressure Mean [Sitting] 101 Blood Pressure Mean [Standing] 102 Pulse Ox 100 Oxygen Delivery Method Room Air Positive well nourished, well developed and obese General Appearance ED: well developed Nutritional Appearance: obese HEENT Reports normocephalic, head/scalp atraumatic and moist mucous membranes Eyes PERRL and EOMs intact bilaterally Neck no lymphadenopathy, supple and no JVD Resp normal respiratory effort and clear to auscultation bilaterally Cardio regular rate, regular rhythm and no murmurs GI normal to inspection, nondistended, normoactive bowel sounds and non-tender Palpation: soft Back/Spine no CVA tenderness and normal ROM Extremity normal to inspection General Extremety ED: Negative for edema General Extremity: Negative for edema Neuro oriented x3 and CN's II-XII intact bilaterally Sensorium / Orientation: alert Motor Exam: strength 5/5 throughout Psych mental status grossly normal Mood & Affect: Negative for depressed or tearful Skin no rashes or lesions noted and no wounds MDM MDM MDM Narrative Medical decision making narrative: Patient's blood work appears at baseline. His EKG does not show any significant changes. He is not orthostatic. He is not hypoxic with ambulation. At this point patient I believe can be discharged home. Lab Data Attestation: I reviewed the patient's lab results. Labs: Laboratory Results - last 24 hr 06/23/21 06/23/21 22:33 22:33 WBC 5.7 RBC 3.80 L Hgb 11.2 L Hct 37.1 L MCV 97.6 H MCH 29.5 MCHC 30.2 L RDW Std Deviation 71.0 H RDW Coeff of Lance 19.7 H Plt Count 236 MPV 9.6 Immature Gran % (Auto) 0.500 Neut % (Auto) 61.6 Lymph % (Auto) 17.9 L [place] % (Auto) 12.2 H Eos % (Auto) 7.1 H Baso % (Auto) 0.7 Absolute Neuts (auto) 3.5 Absolute Lymphs (auto) 1.01 Nucleated RBC % 0 Platelet Estimate ADEQUATE Polychromasia RARE Hypochromasia 1+ Anisocytosis 1+ Macrocytosis RARE Sodium 136 Potassium 4.4 Chloride 96 L Carbon Dioxide 32.0 Anion Gap 8 BUN 30 H Creatinine 8.04 H* Estim Creat Clear Calc 12.74 Est GFR (MDRD) Af Amer 10 L Est GFR (MDRD) Non-Af 8 L BUN/Creatinine Ratio 3.7 L Glucose 97 Calcium 10.0 Discharge Plan Triage Chief Complaint: Dizziness ED Provider: Maxi Villalba Dx/Rx/DC Orders Clinical Impression: Lightheadedness Instructions: ED Dizziness, Uncertain Cause Prescriptions: No Action warfarin 5 MG tablet 5 mg PO DAILY RF: 0 Hold Instructions: Follow up for INR tomorrow and hold until further instructed by Dr. Moreno--> INR today was 3.7 brimonidine 1 DROP bottle 1 drp LEFT EYE TID Qty: 1 RF: 0 Auryxia 210 mg iron tablet 3 tab PO TIDCM RF: 0 gabapentin [Neurontin] 100 mg capsule 100 mg PO RF: 0 amiodarone [Pacerone] 200 mg tablet 200 mg PO DAILY Qty: 90 RF: 3 midodrine 5 mg tablet 5 mg PO TID Qty: 270 RF: 3 Primary Care Provider: Pawel Banda Referrals: Pawel Banda MD [Primary Care Provider] - 3-5 Days if not improving Disposition Disposition: Home, Self Care
[2021-06-23 22:38] VITALS: BP 132/88; BP 136/84; BP 144/93; PULSE 53; PULSE 74; PULSE 87; RESP 22
[2021-06-23 22:41] LABS: Absolute Lymphocyte Count 1.01 X10^3/uL (0.83-4.51); Absolute Neutrophil Count 3.5 X10^3/uL (2.0-7.7); Basophil# 0.04 X10^3/uL; Basophil% 0.7 % (0-1); Eosinophils% 7.1 % (0-5); Hematocrit 37.1 % (40-54); Hemoglobin 11.2 g/dL (13.0-16.5); Lymphocyte # 1.01 X10^3/ul (0.83-4.51); Lymphocyte % 17.9 % (19-41); Mean Corp Hgb Conc 30.2 g/dL (32-36); Mean Corpuscular Hgb 29.5 pg (27.0-32.0); Mean Corpuscular Volume 97.6 fL (80-94); Mean Platelet Vol. 9.6 fl (6.2-12.0); Monocyte# 0.69 X10^3/uL; Monocyte% 12.2 % (0-10); NRBC Flagged by Analyzer 0 % (0-5); Neutrophil # 3.48 X10^3/uL (2.7-7.7); Neutrophil % 61.6 % (47-70); POSITIVE MORPHOLOGY YES; Platelet Count 236 K/mm3 (150-450); RBC Distribution Width CV 19.7 % (11.6-14.6); White Blood Count 5.7 K/mm3 (4.4-11.0)
[2021-06-23 22:43] LABS: Differential Indicated SCAN CRITERIA MET
[2021-06-23 23:07] LABS: Anion Gap 8 (5-15); BUN 30 mg/dL (7-18); BUN/Creat Ratio 3.7 RATIO (10-20); Chloride 96 mmol/L (98-107); Creatinine, Serum 8.04 mg/dL (0.70-1.30); EST Glomerular Filtration Rate 8 mL/min (>60); Est Glom Filt Rate - Afr Amer 10 mL/min (>60); Estimated Creatinine Clearance 12.74 ml/min; Glucose 97 mg/dL (74-106); Potassium 4.4 mmol/L (3.5-5.1); Sodium Level 136 mmol/L (136-145)
[2021-06-23 23:10] LABS: Platelet Estimate ADEQUATE (ADEQ)
[2021-06-23 23:11] LABS: Anisocytosis 1+; Hypochromasia 1+; Macrocytosis RARE; Polychromasia RARE
[2021-06-23 23:35] VITALS: O2SAT 100
== END 2021-06-24 00:28 | disposition home or self-care (01) ==
PROVIDERS: Emergency Provider Emergency Medicine; PCP Internal Medicine
DX: R42 Dizziness and giddiness (principal); I25.2 Old myocardial infarction; Z99.2 Dependence on renal dialysis; Z86.718 Personal history of other venous thrombosis and embolism; Z86.711 Personal history of pulmonary embolism
CPT/HCPCS: 80048; 85025; 93005; 99285; A4216

== ENCOUNTER 2021-07-02 11:40 | Emergency (ER) | payer MEDICARE, MEDICAID, SELFPAY ==
[2021-07-02 11:40] VITALS: BP 104/71; PULSE 94; RESP 16; TEMP 36.4; BMI 39.9
--- NOTE | 2021-07-02 14:35 | EDS_ITS ---
HPI History of Present Illness Chief Complaint: Wound Detail of Chief Complaint: Skin ullcer on his right lower back with foul- smelling drainage Informant: patient Onset/Context/Timing Onset: Days Context: Gradual Onset Timing: Continuous Current Severity: Mild Maximum Severity: Mild Narrative Narrative: 41-year-old male history of A. fib, anemia end-stage renal disease where he is dialyzed and on Coumadin for his A. fib. He has had a chronic skin ulcer wound on his right lower back for 4 months has been taken care of at the wound care center. They have been debriding it. Previously was on antibiotics which he is currently not on at this time. And he states it is becoming more painful and foul-smelling drainage in the last 4 days starting on Friday. He denies any fever or chills. He denies being diabetic. 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) Central retinal artery occlusion of left eye (10/09/20) Chronic kidney disease-mineral and bone disorder Chronic pelvic pain in male Chronic ulcer of back COVID-19 virus detected (03/20/20) Dialysis patient ESRD on hemodialysis Essential (primary) hypertension Expressive aphasia (04/05/20) Hearing loss Hematuria History of bacterial endocarditis History of blood clots History of non-ST elevation myocardial infarction (NSTEMI) (11/08/19) History of pulmonary embolus (PE) History of venous thromboembolism 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 due to renal insufficiency 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 correction current use of 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 Mechanical complication of arteriovenous fistula surgically created Medication side effects Mitral valve annular calcification Morbidly obese Non compliance w medication regimen Non-healing non-surgical wound Nonrheumatic mitral valve stenosis with insufficiency Obstructive sleep apnea Pain of right lower extremity Paroxysmal atrial fibrillation (06/10/20) Paroxysmal atrial flutter 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) Pelvic mass Unspecified symptoms and signs involving cognitive functions and awareness (04/05/20) Home Medications warfarin 5 mg PO DAILY 10/06/20 [History Last Taken 06/03/21] brimonidine 1 drp LEFT EYE TID #1 bottle 10/09/20 [Rx Last Taken 06/03/21] amiodarone 200 mg tablet 200 mg PO DAILY #90 tab 05/23/21 [Rx Last Taken 06/03/21] midodrine 5 mg tablet 5 mg PO TID #270 tab 05/23/21 [Rx Last Taken 06/03/21] Auryxia 3 tab PO TIDCM 05/30/21 [History Last Taken 06/03/21] gabapentin [Neurontin] 100 mg PO 06/08/21 [History Last Taken Unknown] cephalexin 500 mg PO Q6H 10 Days #40 cap 07/02/21 [Rx Last Taken Unknown] oxycodone-acetaminophen [Percocet] 1 tab PO Q8H PRN 4 Days #14 tab 07/02/21 [Rx Last Taken Unknown] sulfamethoxazole-trimethoprim [Bactrim DS] 1 tab PO BID 10 Days #20 tab 07/02/21 [Rx Last Taken Unknown] Allergy/AdvReac Type Severity Reaction Status Date / Time No Known Allergies Allergy Verified 07/02/21 11:43 Family History Other Adopted Surgical History History of cardioversion (12/02/18) history of cather replacement History of herniorrhaphy History of left heart catheterization (09/17/18) History of repair of congenital cleft palate Mechanical complication of dialysis catheter Status post creation of arteriovenous fistula Social History household members: none Smoking Status: Never smoker alcohol intake: never substance use type: marijuana what type of physical activity do you participate in: none ROS ROS ED ROS Narrative Denies nausea, vomiting or diarrhea. Review of Systems ROS Unobtainable: Denies due to encephalopathy Constitutional Constitutional ED: Denies chills or fever(s) ENT ENT ED: Denies ear pain or sore throat Cardiovascular Cardiovascular: Denies chest pain Respiratory/Chest Respiratory/Chest: Denies dyspnea Gastrointestinal Gastrointestinal: Denies abdominal pain, diarrhea, nausea or vomiting Genitourinary Genitourinary ED: Denies dysuria Musculoskeletal Musculoskeletal: Denies myalgias Integumentary Denies rash Neurologic Neurologic: Denies headache(s) Psychiatric Psychiatric: Denies depression Endocrine Endocrinology: Denies polyuria Allergic/Immunologic Allergic/Immunologic ED: Denies urticaria EXAM Physical Exam Narrative Exam Narrative: Middle-age male no acute distress vital signs stable afebrile. HEENT exam unremarkable. Neck nontender adenopathy lungs clear to auscultation bilaterally. Heart irregularly irregular rate about 90. Abdomen soft nontender morbidly obese. Moving all 4 extremities. Back is right lower back there is a 4 x 4 inch square thank area that is a wound with purulent foul-smelling discharge. Tender to palpation. No surrounding cellulitis. Const Vital Signs: 07/02/21 11:40 07/02/21 16:45 07/02/21 18:07 Temperature 97.6 F L Temperature Source Temporal Pulse Rate 94 74 79 Respiratory Rate 16 18 18 Blood Pressure 104/71 104/77 109/79 Blood Pressure Mean 82 86 89 Pulse Ox 97 97 Oxygen Delivery Method Room Air Room Air 07/02/21 21:00 Temperature Temperature Source Pulse Rate 85 Respiratory Rate 16 Blood Pressure 142/90 H Blood Pressure Mean 107 Pulse Ox 97 Oxygen Delivery Method Room Air Positive well nourished, well developed and obese; Negative for cachectic, contractures or unkempt General Appearance ED: well developed and NAD; Negative for unkempt, cachectic, contractures, cyanotic or diaphoretic Nutritional Appearance: obese; Negative for cachectic HEENT Reports moist mucous membranes Eyes PERRL and EOMs intact bilaterally Neck no lymphadenopathy, supple and no JVD Chest Wall inspection of chest normal and palpation of chest normal Resp normal respiratory effort and clear to auscultation bilaterally Auscultation: Negative for rales, rhonchi or wheezes Cardio no murmurs; Negative for regular rate or regular rhythm GI normal to inspection, nondistended, normoactive bowel sounds, non-tender, non- distended and no masses Auscultation: normoactive bowel sounds Palpation: soft; Negative for tender or guarding Back/Spine no CVA tenderness Back/Spine Narrative: Wound right lower back off the midline. About 4 inches x 4 inches square to rectangular wound with purulent discharge tender to palpation. No surrounding cellulitis. It looks obviously infected. Extremity normal to inspection General Extremety ED: Negative for edema or tenderness General Extremity: Negative for edema Neuro oriented x3 Sensorium / Orientation: alert; Negative for orientation impaired, lethargic or stuporous Motor Exam: strength 5/5 throughout Psych mental status grossly normal Appearance: Negative for unkempt Mood & Affect: Negative for depressed Skin no rashes or lesions noted and No no wounds Wounds: wounds noted MDM MDM MDM Narrative Medical decision making narrative: 41-year-old male history of end-stage renal disease dialysis with a infected wound on his right lower back. Treated with morphine for pain. Labs are being obtained. Wound to be cultured. Repeat exam patient is doing well at 940 discharged home. Wound cultures were sent. Is an appointment to see the wound care center in 2 days. He will be started on Bactrim and Keflex and limited Percocet for pain. Lab Data Attestation: I reviewed the patient's lab results. Lab results narrative: CBC White count 6.5 hemoglobin 10.2 which is his baseline. He runs a chronic anemia. Electrolytes show potassium of 5.5. Gap is 12 BUN and creatinine are 56 and 11 is a history of end-stage renal disease. Glucose 85. Labs: Laboratory Results - last 24 hr 07/02/21 07/02/21 15:30 15:30 WBC 6.5 RBC 3.42 L Hgb 10.2 L Hct 33.3 L MCV 97.4 H MCH 29.8 MCHC 30.6 L RDW Std Deviation 71.6 H RDW Coeff of Lance 20.1 H Plt Count 215 MPV 10.9 Immature Gran % (Auto) 0.600 Neut % (Auto) 78.0 H Lymph % (Auto) 7.1 L [place] % (Auto) 7.4 Eos % (Auto) 6.6 H Baso % (Auto) 0.3 Absolute Neuts (auto) 5.1 Absolute Lymphs (auto) 0.46 L Nucleated RBC % 0 Differential Comment Platelet Estimate ADEQUATE RBC Morphology N CHROM Anisocytosis 1+ Sodium 137 Potassium 5.5 H Chloride 98 Carbon Dioxide 27.0 Anion Gap 12 BUN 56 H Creatinine 11.10 H* Estim Creat Clear Calc 9.23 Est GFR (MDRD) Af Amer 7 L Est GFR (MDRD) Non-Af 6 L BUN/Creatinine Ratio 5.0 L Glucose 85 Calcium 10.4 H Discharge Plan Triage Chief Complaint: Wound ED Provider: Sherman Barr Dx/Rx/DC Orders Clinical Impression: Soft tissue infection Instructions: ED Wound Check (Infection) Prescriptions: New cephalexin 500 mg capsule 500 mg PO Q6H 10 Days Qty: 40 RF: 0 sulfamethoxazole-trimethoprim [Bactrim DS] 800-160 mg tablet 1 tab PO BID 10 Days Qty: 20 RF: 0 oxycodone-acetaminophen [Percocet] 5-325 mg tablet 1 tab PO Q8H PRN (Reason: pain) 4 Days Qty: 14 RF: 0 No Action warfarin 5 MG tablet 5 mg PO DAILY RF: 0 Hold Instructions: Follow up for INR tomorrow and hold until further instructed by Dr. Moreno--> INR today was 3.7 brimonidine 1 DROP bottle 1 drp LEFT EYE TID Qty: 1 RF: 0 Auryxia 210 mg iron tablet 3 tab PO TIDCM RF: 0 gabapentin [Neurontin] 100 mg capsule 100 mg PO RF: 0 amiodarone [Pacerone] 200 mg tablet 200 mg PO DAILY Qty: 90 RF: 3 midodrine 5 mg tablet 5 mg PO TID Qty: 270 RF: 3 Primary Care Provider: Pawel Banda Referrals: Pawel Banda MD [Primary Care Provider] - As Needed Activity Restrictions/Additional Instructions: Keep your wound care center appointment in the next several days. Limited Percocet for pain. Keep the wound clean. Keflex 4 times a day and Bactrim twice a day. Wound cultures were sent the wound care center can follow those up. Return if fever or feeling a lot worse. You will have continued discomfort in that area. Disposition Disposition: Home, Self Care
[2021-07-02] MEDS: morphine 8 MG/ML Syringe IV (15:32)
[2021-07-02] MEDS: Ondansetron 4 MG/2 ML Vial IV (15:32)
[2021-07-02 15:51] LABS: Absolute Lymphocyte Count 0.46 X10^3/uL (0.83-4.51); Absolute Neutrophil Count 5.1 X10^3/uL (2.0-7.7); Basophil# 0.02 X10^3/uL; Basophil% 0.3 % (0-1); Eosinophil# 0.43 X10^3/uL; Eosinophils% 6.6 % (0-5); Hematocrit 33.3 % (40-54); Hemoglobin 10.2 g/dL (13.0-16.5); Lymphocyte # 0.46 X10^3/ul (0.83-4.51); Lymphocyte % 7.1 % (19-41); Mean Corp Hgb Conc 30.6 g/dL (32-36); Mean Corpuscular Hgb 29.8 pg (27.0-32.0); Mean Corpuscular Volume 97.4 fL (80-94); Mean Platelet Vol. 10.9 fl (6.2-12.0); Monocyte# 0.48 X10^3/uL; Monocyte% 7.4 % (0-10); NRBC Flagged by Analyzer 0 % (0-5); Neutrophil # 5.05 X10^3/uL (2.7-7.7); POSITIVE DIFFERENTIAL YES; POSITIVE MORPHOLOGY YES; Platelet Count 215 K/mm3 (150-450); RBC Distribution Width CV 20.1 % (11.6-14.6); RBC Distribution Width SD 71.6 fl (35.1-43.9); Red Blood Count 3.42 M/mm3 (4.6-6.2); White Blood Count 6.5 K/mm3 (4.4-11.0)
[2021-07-02 16:01] LABS: Differential Indicated SCAN CRITERIA MET
[2021-07-02 16:10] LABS: Anion Gap 12 (5-15); BUN 56 mg/dL (7-18); Calcium,Total 10.4 mg/dL (8.5-10.1); Chloride 98 mmol/L (98-107); EST Glomerular Filtration Rate 6 mL/min (>60); Est Glom Filt Rate - Afr Amer 7 mL/min (>60); Estimated Creatinine Clearance 9.23 ml/min; Glucose 85 mg/dL (74-106); Potassium 5.5 mmol/L (3.5-5.1); Sodium Level 137 mmol/L (136-145)
[2021-07-02 16:34] LABS: Anisocytosis 1+; Platelet Estimate ADEQUATE (ADEQ); Red Cell Morphology N CHROM NORMAL (NORM C&C)
[2021-07-02 16:45] VITALS: BP 104/77; PULSE 74; RESP 18; O2SAT 97
[2021-07-02 18:07] VITALS: BP 109/79; PULSE 79; RESP 18; O2SAT 97
[2021-07-02 21:00] VITALS: BP 142/90; PULSE 85; RESP 16; O2SAT 97
[2021-07-02] MEDS: Smz/Tmp Ds Tablet 1 TABLET PO (21:55)
[2021-07-02] MEDS: Cephalexin 250 MG Capsule 500 MG PO (21:55)
[2021-07-02] MEDS: oxyCODONE 5 MG Tablet 10 MG PO (21:55)
== END 2021-07-02 22:01 | disposition home or self-care (01) ==
PROVIDERS: Emergency Provider Emergency Medicine; PCP Internal Medicine
DX: L98.429 Non-pressure chronic ulcer of back with unspecified severity (principal); I25.2 Old myocardial infarction; N18.6 End stage renal disease; Z99.2 Dependence on renal dialysis; Z86.718 Personal history of other venous thrombosis and embolism; Z86.711 Personal history of pulmonary embolism
CPT/HCPCS: 80048; 85025; 87070; 87075; 87077; 87186; 87205; 96374; 96375; 99285; J2405

== ENCOUNTER 2021-07-03 21:25 | Emergency (ER) | payer MEDICARE, MEDICAID, SELFPAY ==
[2021-07-03 21:26] VITALS: BP 90/74; PULSE 97; RESP 19; TEMP 37.3; O2SAT 96; BMI 39.9
[2021-07-03 21:48] VITALS: O2SAT 97
--- NOTE | 2021-07-03 21:48 | RAD_ITS ---
INDICATION: chest pain EXAMINATION/TECHNIQUE: X-RAY - XR Chest 1 View COMPARISON: 06/04/2021. FINDINGS: Diffuse interstitial and airspace opacities, similar in appearance to prior on 06/04/2021 The heart is enlarged. No pleural effusion or pneumothorax. No acute osseous abnormalities. Dextroscoliosis. RAD/Chest 1 View (Portable) IMPRESSION: Diffuse interstitial and airspace opacities may represent edema and/or infection. Electronically Signed: Sagar Arrieta MD at 22:32 EDT Tel , Service support ,
--- NOTE | 2021-07-03 21:48 | EKG12_ITS ---
Test Reason : CP Blood Pressure : / mmHG Vent. Rate : 090 BPM Atrial Rate : 090 BPM P-R Int : 226 ms QRS Dur : 068 ms QT Int : 374 ms P-R-T Axes : 069 140 049 degrees QTc Int : 457 ms Sinus rhythm with 1st degree A-V block Low voltage QRS Borderline ECG Confirmed by CHANDA STAHL, ZIA ([id number]), department editor MARGARITO CHANDLER ([id number]) on 07/09/2021 10:37:39 AM Referred By: ARABELLA Confirmed By:LAUREN ARMAS MD
[2021-07-03 22:11] LABS: Absolute Lymphocyte Count 0.53 X10^3/uL (0.83-4.51); Absolute Neutrophil Count 4.2 X10^3/uL (2.0-7.7); Basophil# 0.02 X10^3/uL; Basophil% 0.4 % (0-1); Eosinophil# 0.28 X10^3/uL; Hematocrit 29.3 % (40-54); Hemoglobin 9.1 g/dL (13.0-16.5); Lymphocyte # 0.53 X10^3/ul (0.83-4.51); Lymphocyte % 9.4 % (19-41); Mean Corp Hgb Conc 31.1 g/dL (32-36); Mean Corpuscular Hgb 29.6 pg (27.0-32.0); Mean Corpuscular Volume 95.4 fL (80-94); Mean Platelet Vol. 10.8 fl (6.2-12.0); Monocyte# 0.52 X10^3/uL; Monocyte% 9.2 % (0-10); NRBC Flagged by Analyzer 0 % (0-5); Neutrophil # 4.23 X10^3/uL (2.7-7.7); Neutrophil % 74.8 % (47-70); POSITIVE DIFFERENTIAL YES; POSITIVE MORPHOLOGY YES; Platelet Count 201 K/mm3 (150-450); RBC Distribution Width CV 19.9 % (11.6-14.6); RBC Distribution Width SD 69.4 fl (35.1-43.9); Red Blood Count 3.07 M/mm3 (4.6-6.2); White Blood Count 5.7 K/mm3 (4.4-11.0)
[2021-07-03 22:30] LABS: Differential Indicated SCAN CRITERIA MET
--- NOTE | 2021-07-03 22:33 | ED.VIS.CHEST ---
HPI History of Present Illness Chief Complaint: Chest Pain Informant: patient Onset/Context/Timing Onset: Today and Hours Activity at onset: gradual Timing: Continuous Quality: Positive for Aching Location: Left Chest Current Severity: Mild Maximum Severity: Mild Worsened By: Nothing Relieved By: Nothing Narrative Prior Similar Symptoms: Yes Recent Illness/Hospitalization: No CVD Risk Factors: Negative for Hypertension and Smoking PE Risk Factors: Positive for Prior DVT or PE; Negative for Recent Travel/Surgery, Recent Immobilization, Cancer and OCP + Smoking + >/=35 TAD Risk Factors: Negative for Marfan's Syndrome and Hypertension 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) Central retinal artery occlusion of left eye (10/09/20) Chronic kidney disease-mineral and bone disorder Chronic pelvic pain in male Chronic ulcer of back COVID-19 virus detected (03/20/20) Dialysis patient ESRD on hemodialysis Essential (primary) hypertension Expressive aphasia (04/05/20) Hearing loss Hematuria History of bacterial endocarditis History of blood clots History of non-ST elevation myocardial infarction (NSTEMI) (11/08/19) History of pulmonary embolus (PE) History of venous thromboembolism 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 due to renal insufficiency 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 current 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 of 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 Mechanical complication of arteriovenous fistula surgically created Medication side effects Mitral valve annular calcification Morbidly obese Non compliance w medication regimen Non-healing non-surgical wound Nonrheumatic mitral valve stenosis with insufficiency Obstructive sleep apnea Pain of right lower extremity Paroxysmal atrial fibrillation (06/10/20) Paroxysmal atrial flutter 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) Pelvic mass Unspecified symptoms and signs involving cognitive functions and awareness (04/05/20) Home Medications warfarin 5 mg PO DAILY 10/06/20 [History Last Taken 06/03/21] brimonidine 1 drp LEFT EYE TID #1 bottle 10/09/20 [Rx Last Taken 06/03/21] amiodarone 200 mg tablet 200 mg PO DAILY #90 tab 05/23/21 [Rx Last Taken 06/03/21] midodrine 5 mg tablet 5 mg PO TID #270 tab 05/23/21 [Rx Last Taken 06/03/21] Auryxia 3 tab PO TIDCM 05/30/21 [History Last Taken 06/03/21] gabapentin [Neurontin] 100 mg PO TID 06/08/21 [History Last Taken Unknown] cephalexin 500 mg PO Q6H 10 Days #40 cap 07/02/21 [Rx Last Taken Unknown] oxycodone-acetaminophen [Percocet] 1 tab PO Q8H PRN 4 Days #14 tab 07/02/21 [Rx Last Taken Unknown] sulfamethoxazole-trimethoprim [Bactrim DS] 1 tab PO BID 10 Days #20 tab 07/02/21 [Rx Last Taken Unknown] Allergy/AdvReac Type Severity Reaction Status Date / Time No Known Allergies Allergy Verified 07/02/21 11:43 Family History Other Adopted Surgical History History of cardioversion (12/02/18) history of cather replacement History of herniorrhaphy History of left heart catheterization (09/17/18) History of repair of congenital cleft palate Mechanical complication of dialysis catheter Status post creation of arteriovenous fistula Social History household members: none Smoking Status: Never smoker alcohol intake: never substance use type: marijuana what type of physical activity do you participate in: none ROS ROS ED ROS Narrative Chest discomfort. He denies any nausea. He denies any diaphoresis. Review of Systems ROS Unobtainable: Denies due to encephalopathy Constitutional Constitutional ED: Denies chills, fever(s) or subjective Eyes Eyes: Denies none or change in vision ENT ENT ED: Denies ear pain or sore throat Cardiovascular Cardiovascular: Reports as per HPI and chest pain; Denies palpitations or racing heartbeat Respiratory/Chest Respiratory/Chest: Denies cough or dyspnea Gastrointestinal Gastrointestinal: Denies abdominal pain, diarrhea, nausea or vomiting Genitourinary Genitourinary ED: Denies dysuria Musculoskeletal Musculoskeletal: Denies myalgias Integumentary Denies rash Neurologic Neurologic: Denies headache(s) Psychiatric Psychiatric: Denies depression Endocrine Endocrinology: Denies polyuria Hematologic/Lymphatic Hematologic/Lymphatic: Denies easy bruising Allergic/Immunologic Allergic/Immunologic ED: Denies urticaria EXAM Physical Exam Narrative Exam Narrative: 41-year-old male vital signs are stable his pressure is only 90/74 but he chronically runs hypotensive. He tells me this is a normal pressure for him. Pulse ox 96% on room air no signs hypoxia. H EENT exam unremarkable. Neck nontender no JVD. Lungs clear to auscultation bilaterally. Heart regular rate and rhythm rate about 90 no murmur. Chest wall he has a IV in his left chest. He has tenderness in his left chest consistent with the pain he is having. There is no redness or warmth. There is no rash. No abscess. Abdomen morbidly obese but soft nontender normal bowel sounds no peritoneal signs. Moving all 4 extremities. Calves are nontender without edema or cords. Back is a 4 x 4 area on his right lower back that he was actually treated for emergency room yesterday for a wound with purulent discharge he is currently on 2 antibiotics for. Neurologically is awake and alert moving all 4 extremities. Answering questions and following commands. Const Vital Signs: 07/03/21 21:26 07/03/21 21:32 07/03/21 21:48 Temperature 99.2 F H Temperature Source Oral Pulse Rate 97 Respiratory Rate 19 H Respiratory Effort Normal Blood Pressure 90/74 Blood Pressure Mean 79 Pulse Ox 96 97 Oxygen Delivery Method Room Air Room Air 07/03/21 23:26 07/04/21 00:38 Temperature Temperature Source Pulse Rate 87 84 Respiratory Rate 16 18 Respiratory Effort Blood Pressure 91/54 L 88/54 L Blood Pressure Mean 66 65 Pulse Ox 92 95 Oxygen Delivery Method Room Air Positive well nourished, well developed and obese; Negative for cachectic, contractures or unkempt General Appearance ED: well developed and NAD; Negative for unkempt, cachectic, contractures or pallor Nutritional Appearance: obese; Negative for cachectic HEENT Reports moist mucous membranes normocephalic and atraumatic; Negative for trauma or tenderness Eyes PERRL and EOMs intact bilaterally Neck no lymphadenopathy, supple and no JVD Chest Wall inspection of chest normal; Negative for palpation of chest normal Chest: tenderness Resp normal respiratory effort and clear to auscultation bilaterally Effort and Inspection: respiratory distress Auscultation: Negative for rales, rhonchi or wheezes Cardio regular rate, regular rhythm, S1 normal heart sound, S2 normal heart sound and no murmurs Rate: Negative for bradycardia or tachycardic Extremity normal to inspection General Extremety ED: Negative for edema or tenderness General Extremity: Negative for edema Neuro oriented x3 Sensorium / Orientation: awake, alert, oriented to person, oriented to place and oriented to time Motor Exam: strength 5/5 throughout Psych mental status grossly normal Appearance: Negative for unkempt Skin no rashes or lesions noted and No no wounds Skin Narrative: Wound right lower back. General Skin Exam: Negative for jaundice or pallor Heart Score History: Slightly/Non-Suspicious Age: </= 45 years Risk Factors: 1 or 2 Risk Factors Score: 1 MDM MDM MDM Narrative Medical decision making narrative: 41-year-old male well-known to this emergency department. With left chest wall pain. Reproducible on exam. Will undergo cardiac work-up. Historically this does not appear to be cardiac chest pain but we will evaluate him for that. Patient is chronically hypotensive. Several repeat exams patient is doing well. He was given dose of oral pain medication and it seemed to improve and he will be discharged home. Lab Data Attestation: I reviewed the patient's lab results. Lab results narrative: CBC White count of 5. Hemoglobin 9.1 which is the patient's baseline. Patient is on Coumadin his INR is therapeutic at 2.4. Electrolytes unremarkable gap 11. His BUN is 42 and creatinine is 9 consistent with his end-stage renal disease. Troponin is normal at 75. Chest x-ray reveals chronic changes and is similar to prior chest x-rays. Labs: Laboratory Results - last 24 hr 07/03/21 07/03/21 07/03/21 21:53 21:53 21:53 WBC 5.7 RBC 3.07 L Hgb 9.1 L Hct 29.3 L MCV 95.4 H MCH 29.6 MCHC 31.1 L RDW Std Deviation 69.4 H RDW Coeff of Lance 19.9 H Plt Count 201 MPV 10.8 Immature Gran % (Auto) 1.200 H Neut % (Auto) 74.8 H Lymph % (Auto) 9.4 L [place] % (Auto) 9.2 Eos % (Auto) 5.0 Baso % (Auto) 0.4 Absolute Neuts (auto) 4.2 Absolute Lymphs (auto) 0.53 L Nucleated RBC % 0 Differential Comment SEE COMMENT Platelet Estimate ADEQUATE RBC Morphology N CHROM Hypochromasia RARE Anisocytosis 1+ Macrocytosis 1+ PT 25.5 H INR 2.4 Sodium 136 Potassium 4.2 Chloride 94 L Carbon Dioxide 31.0 Anion Gap 11 BUN 42 H Creatinine 9.01 H* Estim Creat Clear Calc 11.37 Est GFR (MDRD) Af Amer 8 L Est GFR (MDRD) Non-Af 7 L BUN/Creatinine Ratio 4.7 L Glucose 90 Calcium 9.3 Troponin I High Sens 75 Radiography Chest X-Ray - ED: 1 View, Read by ED Physician, Read by Radiologist, Mediastinum, Bony Structures and Chronic Changes Diagnostic Testing: Radiology Impression Chest X-Ray 07/03/21 21:48 IMPRESSION: Diffuse interstitial and airspace opacities may represent edema and/or infection. Electronically Signed: Sagar Arrieta MD at 22:32 EDT Tel , Service support , Single view portable chest x-ray interpreted by myself the radiologist. Patient has chronic interstitial disease this is unchanged from multiple prior x-rays. EKG Follow-up EKG: Attestation: I personally reviewed and interpreted this EKG as follows: Interpretation: Sinus Rhythm and No Acute Injury Pattern Comments: Repeat EKG shows sinus rhythm first-degree AV block with a TX interval of 222. There is no acute changes on this EKG from the first. No signs of acute GA or ischemia. Prior: Unchanged Discharge Plan Triage Chief Complaint: Chest Pain ED Provider: Sherman Barr Dx/Rx/DC Orders Clinical Impression: Acute chest wall pain, Chest pain Instructions: ED Chest Pain, Uncertain Cause Prescriptions: No Action warfarin 5 MG tablet 5 mg PO DAILY RF: 0 Hold Instructions: Follow up for INR tomorrow and hold until further instructed by Dr. Moreno--> INR today was 3.7 brimonidine 1 DROP bottle 1 drp LEFT EYE TID Qty: 1 RF: 0 Auryxia 210 mg iron tablet 3 tab PO TIDCM RF: 0 gabapentin [Neurontin] 100 mg capsule 100 mg PO TID RF: 0 cephalexin 500 mg capsule 500 mg PO Q6H 10 Days Qty: 40 RF: 0 sulfamethoxazole-trimethoprim [Bactrim DS] 800-160 mg tablet 1 tab PO BID 10 Days Qty: 20 RF: 0 oxycodone-acetaminophen [Percocet] 5-325 mg tablet 1 tab PO Q8H PRN (Reason: pain) 4 Days Qty: 14 RF: 0 amiodarone [Pacerone] 200 mg tablet 200 mg PO DAILY Qty: 90 RF: 3 midodrine 5 mg tablet 5 mg PO TID Qty: 270 RF: 3 Primary Care Provider: Pawel Banda Referrals: Pawel Banda MD [Primary Care Provider] - 1-2 Days if not improving Activity Restrictions/Additional Instructions: Follow-up with your doctor if this is not getting better. Ice to your chest wall. Tylenol for pain. Disposition Disposition: Home, Self Care
[2021-07-03 22:38] LABS: Anion Gap 11 (5-15); BUN 42 mg/dL (7-18); BUN/Creat Ratio 4.7 RATIO (10-20); Calcium,Total 9.3 mg/dL (8.5-10.1); Chloride 94 mmol/L (98-107); Creatinine, Serum 9.01 mg/dL (0.70-1.30); EST Glomerular Filtration Rate 7 mL/min (>60); Est Glom Filt Rate - Afr Amer 8 mL/min (>60); Estimated Creatinine Clearance 11.37 ml/min; Glucose 90 mg/dL (74-106); Potassium 4.2 mmol/L (3.5-5.1); Sodium Level 136 mmol/L (136-145); Troponin-I HS 75 pg/mL (3.0-78.0)
[2021-07-03 22:44] LABS: International Normalized Ratio 2.4; Prothrombin Time (Protime)PT. 25.5 SECONDS (11.7-14.9)
[2021-07-03 22:45] LABS: Anisocytosis 1+; Hypochromasia RARE; Macrocytosis 1+; Platelet Estimate ADEQUATE (ADEQ); Red Cell Morphology N CHROM NORMAL (NORM C&C)
[2021-07-03 23:26] VITALS: BP 91/54; PULSE 87; RESP 16; O2SAT 92
[2021-07-04 00:38] VITALS: BP 88/54; PULSE 84; RESP 18; O2SAT 95
--- NOTE | 2021-07-04 01:55 | EKG12_ITS ---
Test Reason : CP Blood Pressure : / mmHG Vent. Rate : 085 BPM Atrial Rate : 085 BPM P-R Int : 222 ms QRS Dur : 072 ms QT Int : 388 ms P-R-T Axes : 073 135 068 degrees QTc Int : 461 ms Sinus rhythm with 1st degree A-V block Low voltage QRS Borderline ECG Confirmed by CHANDA STAHL, ZIA ([id number]), editor at large MARGARITO CHANDLER ([id number]) on 07/09/2021 10:38:10 AM Referred By: FLO Confirmed By:LAUREN ARMAS MD
[2021-07-04] MEDS: oxyCODONE 5 MG Tablet 10 MG PO (02:46)
[2021-07-04 02:47] VITALS: BP 88/50; PULSE 85; RESP 14; O2SAT 96
== END 2021-07-04 02:54 | disposition home or self-care (01) ==
PROVIDERS: Emergency Provider Emergency Medicine; PCP Internal Medicine
DX: R07.89 Other chest pain (principal); F12.10 Cannabis abuse, uncomplicated; I25.2 Old myocardial infarction; I48.92 Unspecified atrial flutter; I48.0 Paroxysmal atrial fibrillation; Z86.718 Personal history of other venous thrombosis and embolism; Z86.711 Personal history of pulmonary embolism; Z79.01 Long term (current) use of 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s; Z79.899 Other long term (current) drug therapy; Z86.16 Personal history of COVID-19
CPT/HCPCS: 71045; 80048; 84484; 85025; 85610; 93005; 99285; A4216

== ENCOUNTER 2021-07-12 09:19 | Outpatient (RCR) | payer MEDICARE, MEDICAID, SELFPAY ==
[2021-06-29 00:27] VITALS: BP 109/58; PULSE 80; RESP 18; TEMP 37; BMI 40.1
[2021-07-12 09:23] VITALS: BP 137/63; PULSE 87; TEMP 36.1; BMI 40.1
--- NOTE | 2021-07-12 13:25 | PN.PCM_ITS ---
History of Present Illness Date of Service: 07/12/21 Chief Complaint: follow up R lower Back wound History of Wound: Mr. Weston is a 41 well known to me and who is currently a transfer of care to [facility] due to conflicting dates for Wound care and dialysis. He has been seen her for right sided back wound. Currently in the fold of his right back. Initial assumption after ER visit was for shingles. He has been receiving care here and is currently on Epifix weekly. He reports more pain in the area and was recently at the ER. At this time, he denies chills, fever, nausea or vomiting. Subjective Subjective Has not been here in weeks. Ulcer worsened. He states that he was recently at an emergency room where he was started on Bactrim due to concern for infection. Reports worsening pain. Objective Data Objective Data Vital Signs: Vital Signs Temp Pulse Resp BP 97.0 F L 87 18 137/63 H 07/12/21 09:23 07/12/21 09:23 06/29/21 00:27 07/12/21 09:23 Weight: 289 lb Body Mass Index (BMI) 40.1 Charges/Coding Procedures Integumentary 111xxx-113xx: 54046 Yany subq tissue 20 sq cm/< Add On Codes: 43973 Yany subq tissue add-on (X2 additional square centimeter debrided, please refer to clinical note) Physical Exam Const alert, oriented x3 and no apparent distress General Appearance: cooperative, comfortable and well kempt HEENT normocephalic and head/scalp atraumatic Head and Scalp: normal to inspection, normocephalic and atraumatic Resp normal respiratory effort Effort and Inspection: able to speak in complete sentences Skin Wounds: wounds noted Neuro oriented x3, CN's II-XII intact bilaterally and moves all extremities Psych mental status grossly normal Appearance: grossly normal Attitude: calm Activity / Motor Behavior: appropriate eye contact Debridement Note Debridement Note Wound debrided: Right Mid Back/Flank Type of Debridement: Excisional debridement Anesthesia Used: 4% Lidocaine Solution Depth: Down to and including healthy tissue Percentage of wound debrided: 100 Tissue Removed: Misonix ultrasound water debridement Severity: Fat Layer Exposed Amount of bleeding with debridement: Mild Bleeding Controlled with: Pressure Patient tolerated procedure: Patient tolerated procedure well Post-Debridement Measurements and Additional Note: Post-Debridement Measurements/Treatment WC - Nurse 1 - General Ulcer Assessment Start: 07/12/21 09:23 Freq: Status: Active Protocol: [email or web address] Activity Type Activity Date Activity User E-Sign Co-Sign Detail Recorded Client Recorded Date Recorded By Document 07/12/21 09:23 KR [id number] 07/12/21 09:26 KR 07/12/21 09:23 - Today's Visit Information Type of service Follow-up Visit (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 Any new allergies or adverse reactions No Had a fall/change in ADL's that may No increase risk of falls Signs or symptoms of abuse and/or No neglect since last visit Have you been in the hospital since your No last visit? Has dressing in place as prescribed Yes Has compression in place as prescribed N/A Has offloadiing in place as prescribed N/A Experienced any changes in pain level or No management Left Footwear Regular Shoe Right Footwear Regular Shoe Pain Scale: 0-10 Numeric Is Patient Pain Free? Yes - Nurse 1 - General Ulcer Measurement Start: 07/12/21 09:23 Freq: Status: Active Protocol: Activity Type Activity Date Activity User E-Sign Co-Sign Detail Recorded Client Recorded Date Recorded By Document 07/12/21 09:23 KR [id number] 07/12/21 09:26 KR 07/12/21 09:23 Wound Center Nurse 1 #2 right lower back -Current Size (cm) - Length 4.4 -Current Size (cm) - Width 10.5 -Current Size (cm) - Depth 0.1 -Total Square Cm 46.20 -Exudate Amt Large -Exudate Type Yellow/Green -Wound Margin Distinct, Outline Attached -Granulation Amt Medium (34-66%) -Granulation Quality Red -Necrosis Amt Medium (34-66%) -Necrotic Tissue Type Adherent Slough -Texture (Skye-wound Skin Appearance) Assessed, Scarring -Moisture (Skye-wound Skin Appearance) No Abnormality, Assessed -Color (Skye-wound Skin Appearance) No Abnormality, Assessed -Temperature (Skye-wound Skin No Abnormality Appearance) (Pt Warm) -Tenderness on Palpation (Skye-wound No Skin Appearance) -Ulcer Cleansing Rinsed/ Irrigated with Saline -Foul Odor after Cleansing No -Anesthetic Used 5% Lidocaine Gel WC - Nurse 2 - General Ulcer CM Notes Start: 07/12/21 09:23 Freq: Status: Active Protocol: Activity Type Activity Date Activity User E-Sign Co-Sign Detail Recorded Client Recorded Date Recorded By Document 07/12/21 09:46 MW [id number] 07/12/21 10:01 MW 07/12/21 09:46 Wound Center Nurse 2 -Time 09:48 -Correct Patient Yes -Correct Side, Site, Position Yes -Correct Procedure Yes -Procedure Performed Yes -Type of Procedure Debridement -Clinical Debridement Subcutaneous -Tissue Removed Subcutaneous -Post Debridement (cm) - Length 4.0 -Post Debridement (cm) - Width 11.0 -Post Debridement (cm) - Depth 0.1 -Total Square (Post) (cm) 44.00 -Area of Debridement (cm) - Length 4.0 -Area of Debridement (cm) - Width 11.0 -Total Square (Area) (cm) 44.00 -Tunneling No -Undermining/Tunneling No -Circular Undermining No -Wound/Ulcer Outcome Not Healed -Ulcer Cleansing Rinsed/ Irrigated with Saline -Foul Odor after Cleansing No -Bioengineered Tissue No -Bleeding Controlled with Pressure -Offloading No -Treatment Response Procedure Tolerated Well -Debridement - Subq, 1st 20sq cm Yes -Debridement, SubQ, ea addt'l 20sq cm 2 or part thereof Pain Scale: 0-10 Numeric Is Patient Pain Free? Yes WC - Nurse 3 - General Ulcer D/C NN Start: 07/12/21 09:23 Freq: Status: Active Protocol: Activity Type Activity Date Activity User E-Sign Co-Sign Detail Recorded Client Recorded Date Recorded By Document 07/12/21 10:19 AK [id number] 07/12/21 10:20 AK 07/12/21 10:19 Wound Care Nurse 3 #2 right lower back -Ulcer Cleansing Rinsed/ Irrigated with Saline -Foul Odor after Cleansing No -Negative Pressure Wound Therapy N/A -Primary Dressing Applied Aquacel AG 4x4, Mepilex Border, NonAdherent Contact Layer -Aquacel AG 4x4 1 -Mepilex Border 1 WC - Visit Discharge Discharge Condition Stable Ambulatory Status Ambulatory Transportation Private Auto Medication Reconcilliation completed & No provided to patient/care provider Clinical Summary of Care Provided Yes Assessment/Plan Assessment/Plan (1) Chronic ulcer of back: CODE(S): L98.429 - Non-pressure chronic ulcer of back with unspecified severity (2) ESRD on hemodialysis: CODE(S): N18.6 - End stage renal disease; Z99.2 - Dependence on renal dialysis (3) Paroxysmal atrial fibrillation: CODE(S): I48.0 - Paroxysmal atrial fibrillation PLAN: Debridement done as documented above using the Pre[employer] Energeticsonix ultrasound water debridement. As above, ulcer has worsened. Continue Aquacel Ag, moistened. Adaptic over top. Cover with gauze. Change daily. Strongly advised compliance. As above, has not been seen here in weeks. Also lost of crusting surrounding ulcer, not washing with soap and water. Continue gabapentin as needed for pain. Adjusted for HD. Continue adequate protein intake and offloading. His questions were answered and he was advised to call with any further questions or concerns. Follow-up in 1 week. This note was generated with [employer] dictation software. It may contain incorrect words, spelling, and punctuation that were not noted in checking the note before signing.
--- NOTE | 2021-07-12 13:37 | PCM.WC.PN ---
History of Present Illness Chief Complaint: follow up R lower Back wound History of Wound: Mr. Weston is a 41 well known to me and who [place] [facility] care and dialysis. He has been seen her for right sided back wound. Currently in the fold of his right back. Initial assumption after ER visit was for shingles. He has been receiving care here and is currently on Epifix weekly. He reports more pain in the area and was recently at the ER. At this time, he denies chills, fever, nausea or vomiting. Subjective Subjective Worsening right lower extremity swelling. New opening and previously healed area. Did a 15-hour travel to [place] [id number] not wearing any compression. Also concerns with loosened screws and plan is for surgery by his orthopedic surgeon Objective Data Objective Data Vital Signs: Vital Signs Temp Pulse Resp BP 97.0 F L 87 18 137/63 H 07/12/21 09:23 07/12/21 09:23 06/29/21 00:27 07/12/21 09:23 Weight: 289 lb Body Mass Index (BMI) 40.1 Physical Exam Const alert, oriented x3 and no apparent distress General Appearance: cooperative, comfortable and well kempt HEENT normocephalic and head/scalp atraumatic Head and Scalp: normal to inspection, normocephalic and atraumatic Resp normal respiratory effort Effort and Inspection: able to speak in complete sentences Skin Wounds: wounds noted Neuro oriented x3, CN's II-XII intact bilaterally and moves all extremities Psych mental status grossly normal Appearance: grossly normal Attitude: calm Activity / Motor Behavior: appropriate eye contact Debridement Note Debridement Note Wound debrided: Right Lower Extremity Type of Debridement: Excisional debridement Anesthesia Used: 4% Lidocaine Solution Depth: Down to and including healthy tissue and in the subcutaneous layer Percentage of wound debrided: 100 Instrument Used: 3mm curette Tissue Removed: Slough and devitalized tissue Severity: Fat Layer Exposed Amount of bleeding with debridement: Mild Bleeding Controlled with: Pressure Patient tolerated procedure: Patient tolerated procedure well Post-Debridement Measurements and Additional Note: Post-Debridement Measurements/Treatment GRISELDA - Nurse 1 - General Ulcer Assessment Start: 07/12/21 09:23 Freq: Status: Active Protocol: FAISAL Activity Type Activity Date Activity User E-Sign Co-Sign Detail Recorded Client Recorded Date Recorded By Document 07/12/21 09:23 KR [id number] 07/12/21 09:26 KR 07/12/21 09:23 WC - Today's Visit Information Type of service 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 Any new allergies or adverse reactions No Had a fall/change in ADL's that may No increase risk of falls Signs or symptoms of abuse and/or No neglect since last visit Have you been in the hospital since your No last visit? Has dressing in place as prescribed Yes Has compression in place as prescribed N/A Has offloadiing in place as prescribed N/A Experienced any changes in pain level or No management Left Footwear Regular Shoe Right Footwear Regular Shoe Pain Scale: 0-10 Numeric Is Patient Pain Free? Yes - Nurse 1 - General Ulcer Measurement Start: 07/12/21 09:23 Freq: Status: Active Protocol: Activity Type Activity Date Activity User E-Sign Co-Sign Detail Recorded Client Recorded Date Recorded By Document 07/12/21 09:23 KR [id number] 07/12/21 09:26 KB 07/12/21 09:23 Wound Center Nurse 1 #2 right lower back -Current Size (cm) - Length 4.4 -Current Size (cm) - Width 10.5 -Current Size (cm) - Depth 0.1 -Total Square Cm 46.20 -Exudate Amt Large -Exudate Type Yellow/Green -Wound Margin Distinct, Outline Attached -Granulation Amt Medium (34-66%) -Granulation Quality Red -Necrosis Amt Medium (34-66%) -Necrotic Tissue Type Adherent Slough -Texture (Skye-wound Skin Appearance) Assessed, Scarring -Moisture (Skye-wound Skin Appearance) No Abnormality, Assessed -Color (Skye-wound Skin Appearance) No Abnormality, Assessed -Temperature (Skye-wound Skin No Abnormality Appearance) (Pt Warm) -Tenderness on Palpation (Skye-wound No Skin Appearance) -Ulcer Cleansing Rinsed/ Irrigated with Saline -Foul Odor after Cleansing No -Anesthetic Used 5% Lidocaine Gel - Nurse 2 - General Ulcer CM Notes Start: 07/12/21 09:23 Freq: Status: Active Protocol: Activity Type Activity Date Activity User E-Sign Co-Sign Detail Recorded Client Recorded Date Recorded By Document 07/12/21 09:46 MW [id number] 07/12/21 10:01 MW 07/12/21 09:46 Wound Center Nurse 2 -Time 09:48 -Correct Patient Yes -Correct Side, Site, Position Yes -Correct Procedure Yes -Procedure Performed Yes -Type of Procedure Debridement -Clinical Debridement Subcutaneous -Tissue Removed Subcutaneous -Post Debridement (cm) - Length 4.0 -Post Debridement (cm) - Width 11.0 -Post Debridement (cm) - Depth 0.1 -Total Square (Post) (cm) 44.00 -Area of Debridement (cm) - Length 4.0 -Area of Debridement (cm) - Width 11.0 -Total Square (Area) (cm) 44.00 -Tunneling No -Undermining/Tunneling No -Circular Undermining No -Wound/Ulcer Outcome Not Healed -Ulcer Cleansing Rinsed/ Irrigated with Saline -Foul Odor after Cleansing No -Bioengineered Tissue No -Bleeding Controlled with Pressure -Offloading No -Treatment Response Procedure Tolerated Well -Debridement - Subq, 1st 20sq cm Yes -Debridement, SubQ, ea addt'l 20sq cm 2 or part thereof Pain Scale: 0-10 Numeric Is Patient Pain Free? Yes - Nurse 3 - General Ulcer D/C NN Start: 07/12/21 09:23 Freq: Status: Active Protocol: Activity Type Activity Date Activity User E-Sign Co-Sign Detail Recorded Client Recorded Date Recorded By Document 07/12/21 10:19 AK [id number] 07/12/21 10:20 AK 07/12/21 10:19 Wound Care Nurse 3 #2 right lower back -Ulcer Cleansing Rinsed/ Irrigated with Saline -Foul Odor after Cleansing No -Negative Pressure Wound Therapy N/A -Primary Dressing Applied Aquacel AG 4x4, Mepilex Border, NonAdherent Contact Layer -Aquacel AG 4x4 1 -Mepilex Border 1 WC - Visit Discharge Discharge Condition Stable Ambulatory Status Ambulatory Transportation Private Auto Medication Reconcilliation completed & No provided to patient/care provider Clinical Summary of Care Provided Yes
== END 2021-07-29 23:59 ==
LOC: WC 09:19
PROVIDERS: PCP Internal Medicine; Visit Provider Internal Medicine
DX: L98.422 Non-pressure chronic ulcer of back with fat layer exposed (principal); I48.0 Paroxysmal atrial fibrillation; N18.6 End stage renal disease; Z99.2 Dependence on renal dialysis
CPT/HCPCS: 11042; 11045

== ENCOUNTER 2021-07-19 05:39 | Emergency (ER) | payer MEDICARE, MEDICAID, SELFPAY ==
[2021-07-19 05:41] VITALS: BP 84/37; PULSE 98; RESP 18; TEMP 37.7; O2SAT 97; BMI 39.7
--- NOTE | 2021-07-19 07:08 | RAD_ITS ---
STUDY: X-RAY CHEST REASON FOR EXAM: Male, 41 years old. chest pain TECHNIQUE: AP COMPARISON: 07/03/2021 CXR and from 06/04/2021 CT chest and CXR. FINDINGS: The lungs demonstrate no focal lung consolidative changes. There is no demonstrated pleural abnormality. There is mild cardiac enlargement. Normal mediastinum and michael. Normal visualized pulmonary arteries. Normal visualized aortic arch and descending thoracic aorta. There is a dextroscoliosis of the thoracic spine. Normal visualized ribs, clavicles, and shoulders. There is no demonstrated abnormality of the visualized soft tissue structures of the upper abdomen. RAD/Chest 1 View (Portable) IMPRESSION: Stable chest without focal lung consolidative changes. Stable cardiac enlargement. Electronically Signed: Sagar Escalera MD at 7:49 EDT Tel , Service support ,
--- NOTE | 2021-07-19 07:09 | EDS_ITS ---
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 He tells me the pain began on Friday is in the center of his chest and goes to his left shoulder and down to his hand. He states that he would not have come to the emergency department but his work told him he needed to get it checked out. Patient has multiple medical problems. He states nothing makes it better or worse. He states that his chest is sore to palpation. Patient notes his temperature is 99.9 he has a slight cough that is nonproductive. He notes chronic low blood pressure especially with dialysis. 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) Central retinal artery occlusion of left eye (10/09/20) Chronic kidney disease-mineral and bone disorder Chronic pelvic pain in male Chronic ulcer of back COVID-19 virus detected (03/20/20) Dialysis patient ESRD on hemodialysis Essential (primary) hypertension Expressive aphasia (04/05/20) Hearing loss Hematuria History of bacterial endocarditis History of blood clots History of non-ST elevation myocardial infarction (NSTEMI) (11/08/19) History of pulmonary embolus (PE) History of venous thromboembolism 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 due to renal insufficiency 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 Mechanical complication of arteriovenous fistula surgically created Medication side effects Mitral valve annular calcification Morbidly obese Non compliance w medication regimen Non-healing non-surgical wound Nonrheumatic mitral valve stenosis with insufficiency Obstructive sleep apnea Pain of right lower extremity Paroxysmal atrial fibrillation (06/10/20) Paroxysmal atrial flutter 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) Pelvic mass Unspecified symptoms and signs involving cognitive functions and awareness (04/05/20) Medical History no medical history Home Medications warfarin 5 mg PO DAILY 10/06/20 [History Last Taken 06/03/21] brimonidine 1 drp LEFT EYE TID #1 bottle 10/09/20 [Rx Last Taken 06/03/21] amiodarone 200 mg tablet 200 mg PO DAILY #90 tab 05/23/21 [Rx Last Taken 06/03/21] midodrine 5 mg tablet 5 mg PO TID #270 tab 05/23/21 [Rx Last Taken 06/03/21] Auryxia 3 tab PO TIDCM 05/30/21 [History Last Taken 06/03/21] gabapentin [Neurontin] 100 mg PO TID 06/08/21 [History Last Taken Unknown] cephalexin 500 mg PO Q6H 10 Days #40 cap 07/02/21 [Rx Last Taken Unknown] oxycodone-acetaminophen [Percocet] 1 tab PO Q8H PRN 4 Days #14 tab 07/02/21 [Rx Last Taken Unknown] sulfamethoxazole-trimethoprim [Bactrim DS] 1 tab PO BID 10 Days #20 tab 07/02/21 [Rx Last Taken Unknown] BP monitor #1 ea 07/17/21 [Rx Last Taken Unknown] Allergy/AdvReac Type Severity Reaction Status Date / Time No Known Allergies Allergy Verified 07/02/21 11:43 Family History Other Adopted Surgical History History of cardioversion (12/02/18) history of cather replacement History of herniorrhaphy History of left heart catheterization (09/17/18) History of repair of congenital cleft palate Mechanical complication of dialysis catheter Status post creation of arteriovenous fistula Surgical History no surgical history Social History household members: none Smoking Status: Never smoker alcohol intake: never substance use type: marijuana what type of physical activity do you participate in: none ROS ROS ED Constitutional Constitutional ED: Denies chills, fever(s) or weight loss Eyes Eyes: Denies change in vision or diplopia ENT ENT ED: Denies ear pain, rhinorrhea or sore throat Cardiovascular Cardiovascular: Reports chest pain; Denies orthopnea, palpitations or racing heartbeat Respiratory/Chest Respiratory/Chest: Reports cough; Denies dyspnea or orthopnea Gastrointestinal Gastrointestinal: Denies abdominal pain, diarrhea, nausea or vomiting Genitourinary Genitourinary ED: Denies dysuria, hematuria or urinary frequency Musculoskeletal Musculoskeletal: Denies arthralgias or myalgias Integumentary Denies abscess or rash Neurologic Neurologic: Denies headache(s) or weakness Psychiatric Psychiatric: Denies anxiety, depression, suicidal ideation or suicidal thoughts Endocrine Endocrinology: Denies polydipsia, polyphagia or polyuria Allergic/Immunologic Allergic/Immunologic ED: Denies mouth swelling, tongue swelling or urticaria EXAM Physical Exam Const Vital Signs: 07/19/21 05:41 07/19/21 06:44 07/19/21 07:37 Temperature 99.9 F H Temperature Source Oral Pulse Rate 98 94 Respiratory Rate 18 20 H Respiratory Pattern Tachypnea Blood Pressure 84/37 L 115/62 Blood Pressure Mean 52 79 Pulse Ox 97 96 Oxygen Delivery Method Room Air Positive well nourished and well developed General Appearance ED: well developed HEENT Reports normocephalic, head/scalp atraumatic and moist mucous membranes Eyes PERRL and EOMs intact bilaterally Neck no lymphadenopathy, supple and no JVD Chest Wall Chest Narrative: Tender to palpation over the left side of his chest particularl y close to the manubrium Resp normal respiratory effort and clear to auscultation bilaterally Cardio regular rate, regular rhythm and no murmurs GI normal to inspection, nondistended, normoactive bowel sounds and non-tender Palpation: soft Back/Spine no CVA tenderness and normal ROM Extremity normal to inspection General Extremety ED: Negative for edema General Extremity: Negative for edema Neuro oriented x3 and CN's II-XII intact bilaterally Sensorium / Orientation: alert Motor Exam: strength 5/5 throughout Psych mental status grossly normal Mood & Affect: Negative for depressed or tearful Skin no rashes or lesions noted and no wounds MDM MDM MDM Narrative Medical decision making narrative: CBC shows a hemoglobin of 9.2. INR significantly elevated at 7.2. Troponin 21. My interpretation of the chest x- ray is no acute process. Patient's had no events on the monitor. Patient was advised to hold his Coumadin today and tomorrow. He should have this rechecked. I believe the patient is stable for discharge. Lab Data Attestation: I reviewed the patient's lab results. Labs: Laboratory Results - last 24 hr 07/19/21 07/19/21 07/19/21 06:43 06:43 07:14 WBC 7.5 RBC 3.07 L Hgb 9.2 L Hct 29.8 L MCV 97.1 H MCH 30.0 MCHC 30.9 L RDW Std Deviation 72.7 H RDW Coeff of Lance 20.8 H Plt Count 328 MPV 9.9 Immature Gran % (Auto) 0.900 Neut % (Auto) 66.1 Lymph % (Auto) 11.5 L [place] % (Auto) 18.7 H Eos % (Auto) 2.1 Baso % (Auto) 0.7 Absolute Neuts (auto) 5.0 Absolute Lymphs (auto) 0.87 Nucleated RBC % 0.3 Anisocytosis 1+ PT 61.1 H INR 7.2 H* Sodium 134 L Potassium 4.1 Chloride 94 L Carbon Dioxide 33.0 H Anion Gap 7 BUN 21 H Creatinine 6.40 H Estim Creat Clear Calc 16.00 Est GFR (MDRD) Af Amer 13 L Est GFR (MDRD) Non-Af 10 L BUN/Creatinine Ratio 3.3 L Glucose 99 Calcium 10.1 Troponin I High Sens 21 Radiography Diagnostic Testing: Clinical Impression(s) from Imaging Studies Chest X-Ray 07/19/21 07:08 IMPRESSION: Stable chest without focal lung consolidative changes. Stable cardiac enlargement. Electronically Signed: Sagar Escalera MD at 7:49 EDT Tel , Service support , EKG Initial EKG: Attestation: I personally reviewed and interpreted this EKG as follows: Comments: Sinus rhythm with a ventricular rate of 97 bpm first-degree AV block Discharge Plan Triage Chief Complaint: Chest Pain ED Provider: Maxi Villalba Dx/Rx/DC Orders Clinical Impression: Chest pain, Supratherapeutic INR Instructions: ED Chest Pain, Uncertain Cause Prescriptions: No Action warfarin 5 MG tablet 5 mg PO DAILY RF: 0 Hold Instructions: Follow up for INR tomorrow and hold until further instruct ed by Dr. Moreno--> INR today was 3.7 brimonidine 1 DROP bottle 1 drp LEFT EYE TID Qty: 1 RF: 0 Auryxia 210 mg iron tablet 3 tab PO TIDCM RF: 0 gabapentin [Neurontin] 100 mg capsule 100 mg PO TID RF: 0 cephalexin 500 mg capsule 500 mg PO Q6H 10 Days Qty: 40 RF: 0 sulfamethoxazole-trimethoprim [Bactrim DS] 800-160 mg tablet 1 tab PO BID 10 Days Qty: 20 RF: 0 oxycodone-acetaminophen [Percocet] 5-325 mg tablet 1 tab PO Q8H PRN (Reason: pain) 4 Days Qty: 14 RF: 0 amiodarone [Pacerone] 200 mg tablet 200 mg PO DAILY Qty: 90 RF: 3 midodrine 5 mg tablet 5 mg PO TID Qty: 270 RF: 3 (DME) BP monitor large cuff See Rx Instructions .Route .MEDSUPPLY Qty: 1 RF: 0 Primary Care Provider: Pawel Banda Referrals: Pawel Banda MD [Primary Care Provider] - 3-5 Days if not improving Disposition Disposition: Home, Self Care
[2021-07-19 07:20] LABS: Absolute Lymphocyte Count 0.87 X10^3/uL (0.83-4.51); Basophil# 0.05 X10^3/uL; Basophil% 0.7 % (0-1); Differential Indicated SCAN CRITERIA MET; Eosinophil# 0.16 X10^3/uL; Eosinophils% 2.1 % (0-5); Hematocrit 29.8 % (40-54); Hemoglobin 9.2 g/dL (13.0-16.5); Lymphocyte # 0.87 X10^3/ul (0.83-4.51); Lymphocyte % 11.5 % (19-41); Mean Corp Hgb Conc 30.9 g/dL (32-36); Mean Corpuscular Volume 97.1 fL (80-94); Mean Platelet Vol. 9.9 fl (6.2-12.0); Monocyte# 1.41 X10^3/uL; Monocyte% 18.7 % (0-10); NRBC Flagged by Analyzer 0.3 % (0-5); Neutrophil # 4.98 X10^3/uL (2.7-7.7); Neutrophil % 66.1 % (47-70); POSITIVE MORPHOLOGY YES; Platelet Count 328 K/mm3 (150-450); RBC Distribution Width CV 20.8 % (11.6-14.6); RBC Distribution Width SD 72.7 fl (35.1-43.9); Red Blood Count 3.07 M/mm3 (4.6-6.2); White Blood Count 7.5 K/mm3 (4.4-11.0)
[2021-07-19 07:31] LABS: Prothrombin Time (Protime)PT. 61.1 SECONDS (11.7-14.9)
[2021-07-19 07:37] VITALS: BP 115/62; PULSE 94; RESP 20; O2SAT 96
[2021-07-19 07:39] LABS: Anion Gap 7 (5-15); BUN 21 mg/dL (7-18); BUN/Creat Ratio 3.3 RATIO (10-20); Calcium,Total 10.1 mg/dL (8.5-10.1); Chloride 94 mmol/L (98-107); EST Glomerular Filtration Rate 10 mL/min (>60); Est Glom Filt Rate - Afr Amer 13 mL/min (>60); Glucose 99 mg/dL (74-106); Potassium 4.1 mmol/L (3.5-5.1); Sodium Level 134 mmol/L (136-145); Troponin-I HS 21 pg/mL (3.0-78.0)
[2021-07-19 07:40] LABS: International Normalized Ratio 7.2
[2021-07-19 07:42] LABS: Anisocytosis 1+
[2021-07-19 08:30] VITALS: BP 114/58; PULSE 91; RESP 18; O2SAT 98
== END 2021-07-19 09:13 | disposition home or self-care (01) ==
PROVIDERS: Emergency Provider Emergency Medicine; PCP Internal Medicine
DX: R07.9 Chest pain, unspecified (principal); R79.1 Abnormal coagulation profile; F12.10 Cannabis abuse, uncomplicated; N18.6 End stage renal disease; I25.2 Old myocardial infarction; Z86.16 Personal history of COVID-19; Z86.718 Personal history of other venous thrombosis and embolism; Z86.711 Personal history of pulmonary embolism; Z99.2 Dependence on renal dialysis
CPT/HCPCS: 71045; 80048; 84484; 85025; 85610; 87426; 93005; 99284; A4216

== ENCOUNTER 2021-07-23 14:53 | Emergency (ER) | payer MEDICARE, MEDICAID, SELFPAY ==
[2021-07-23] VITALS (7 sets, daily range): BP systolic 96–127; BP diastolic 53–80; PULSE 71–88; RESP 14–17; TEMP 36.6; O2SAT 97–100; BMI 38.4
--- NOTE | 2021-07-23 15:07 | RAD_ITS ---
STUDY: X-RAY CHEST REASON FOR EXAM: Male, 41 years old. SOB TECHNIQUE: Single AP portable view of the chest. COMPARISON: Comparison is made with prior study 07/19/2021. FINDINGS: EKG electrodes are seen. Stable infiltrate in the right lower lobe as well as at the left lung base. There is no demonstrated pleural abnormality. Normal size heart. Normal mediastinum and michael. Normal visualized pulmonary arteries. Normal visualized aortic arch and descending thoracic aorta. Normal visualized thoracic spine. Normal visualized ribs, clavicles, and shoulders. There is no demonstrated abnormality of the visualized soft tissue structures of the upper abdomen. RAD/Chest 1 View (Portable) IMPRESSION: Stable bibasilar pulmonary infiltrates. Electronically Signed: Ed Vega MD at 15:57 EDT , Service support ,
--- NOTE | 2021-07-23 15:07 | EKG12_ITS ---
Test Reason : HYPOTENSION Blood Pressure : / mmHG Vent. Rate : 087 BPM Atrial Rate : 087 BPM P-R Int : 212 ms QRS Dur : 094 ms QT Int : 426 ms P-R-T Axes : 083 168 077 degrees QTc Int : 512 ms Sinus rhythm with 1st degree A-V block Prolonged QT Poor R wave progression Abnormal ECG Confirmed by ADALGISA STAHL, GOGO ([id number]), scientific editor MARGARITO CHANDLER ([id number]) on 07/25/2021 9:25:06 AM Referred By: YUNG Confirmed By:GOGO DIANA MD
--- NOTE | 2021-07-23 15:10 | EDS_ITS ---
HPI History of Present Illness Chief Complaint: Shortness of Breath Informant: patient Narrative Narrative: This patient's chief complaint today is actually with his blood pressure his oxygen levels were low when he went to his physician's appointment today. He had dialysis as normal this morning. He states he had a full course. He had no troubles with this. This patient has chronic dyspnea, He states most of this is exertional dyspnea onand exertional chest pain. It has not been any different recently. Its not actively going on while he is sitting here today. It has not recently changed. He thinks he went down to dry weight. He has been having long-term problems with low blood pressure. He states he took 2 midodrine prior to dialysis and one during. He then went directly to a prescheduled routine visit to his physician's office. He had blood pressure in the 70s he thinks and oxygen levels were somewhere in the 70s. He was referred here because of this. He did not feel any different during this time than he does on a normal day. He denies any black or bloody stools. He denies change in his medicines except he has held Coumadin for about 4 days due to a high INR recently. The summary of the reason for coming here today is that he had abnormal vitals at his physician's office even though the patient really feels in his normal state of health which is not good. 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) Central retinal artery occlusion of left eye (10/09/20) Chronic kidney disease-mineral and bone disorder Chronic pelvic pain in male Chronic ulcer of back COVID-19 virus detected (03/20/20) Dialysis patient ESRD on hemodialysis Essential (primary) hypertension Expressive aphasia (04/05/20) Hearing loss Hematuria History of bacterial endocarditis History of blood clots History of non-ST elevation myocardial infarction (NSTEMI) (11/08/19) History of pulmonary embolus (PE) History of venous thromboembolism 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 due to renal insufficiency 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 Mechanical complication of arteriovenous fistula surgically created Medication side effects Mitral valve annular calcification Morbidly obese Non compliance w medication regimen Non-healing non-surgical wound Nonrheumatic mitral valve stenosis with insufficiency Obstructive sleep apnea Pain of right lower extremity Paroxysmal atrial fibrillation (06/10/20) Paroxysmal atrial flutter 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) Pelvic mass Unspecified symptoms and signs involving cognitive functions and awareness (04/05/20) Home Medications warfarin 5 mg PO DAILY 10/06/20 [History Last Taken 06/03/21] brimonidine 1 drp LEFT EYE TID #1 bottle 10/09/20 [Rx Last Taken 06/03/21] amiodarone 200 mg tablet 200 mg PO DAILY #90 tab 05/23/21 [Rx Last Taken 06/03/21] midodrine 5 mg tablet 5 mg PO TID #270 tab 05/23/21 [Rx Last Taken 06/03/21] Auryxia 3 tab PO TIDCM 05/30/21 [History Last Taken 06/03/21] cephalexin 500 mg PO Q6H 10 Days #40 cap 07/02/21 [Rx Last Taken Unknown] oxycodone-acetaminophen [Percocet] 1 tab PO Q8H PRN 4 Days #14 tab 07/02/21 [Rx Last Taken Unknown] sulfamethoxazole-trimethoprim [Bactrim DS] 1 tab PO BID 10 Days #20 tab 07/02/21 [Rx Last Taken Unknown] BP monitor #1 ea 07/17/21 [Rx Last Taken Unknown] Allergy/AdvReac Type Severity Reaction Status Date / Time No Known Allergies Allergy Verified 07/23/21 13:50 Family History Other Adopted Surgical History History of cardioversion (12/02/18) history of cather replacement History of herniorrhaphy History of left heart catheterization (09/17/18) History of repair of congenital cleft palate Mechanical complication of dialysis catheter Status post creation of arteriovenous fistula Social History household members: none Smoking Status: Never smoker alcohol intake: never substance use type: marijuana what type of physical activity do you participate in: none ROS ROS ED Constitutional Constitutional ED: Denies chills, fever(s) or weight loss Eyes Eyes: Denies blurry vision ENT ENT ED: Denies rhinorrhea or sore throat Cardiovascular Cardiovascular: Reports chest pain and palpitations; Denies racing heartbeat Respiratory/Chest Respiratory/Chest: Reports dyspnea and dyspnea on exertion; Denies cough or sputum Gastrointestinal Gastrointestinal: Reports other Details: No hematochezia. ; Denies diarrhea, melena, nausea or vomiting Musculoskeletal Musculoskeletal: Denies myalgias Integumentary Denies rash Neurologic Neurologic: Denies headache(s) Psychiatric Psychiatric: Denies depression Endocrine Endocrinology: Denies polydipsia or polyuria Allergic/Immunologic Allergic/Immunologic ED: Denies mouth swelling or urticaria EXAM Physical Exam Const Vital Signs: 07/23/21 14:55 07/23/21 15:02 07/23/21 15:36 Temperature 97.8 F Temperature Source Temporal Pulse Rate 88 78 Respiratory Rate 17 14 Respiratory Effort Normal Non-Labored Respiratory Depth Normal Respiratory Pattern Normal Blood Pressure 96/58 L 101/60 Blood Pressure Mean 70 73 Pulse Ox 97 100 Oxygen Delivery Method Room Air Room Air 07/23/21 16:22 07/23/21 20:00 07/23/21 20:57 Temperature Temperature Source Pulse Rate 71 73 71 Respiratory Rate 14 14 16 Respiratory Effort Respiratory Depth Respiratory Pattern Blood Pressure 127/80 H 115/53 L 106/61 Blood Pressure Mean 95 73 Pulse Ox 100 99 97 Oxygen Delivery Method Room Air Room Air Patient is lying in bed. He is lying almost flat about 15 to 20 degrees up. He does not look dyspneic. He carries on a full normal conversation. No diaphoresis. Blood pressure is 98/58 the which is good for this patient. His saturations are hard to get because it is hard to get a good waveform. When we finally got a waveform he actually had saturations at 97%. When we had no waveform his saturations would vary anywhere between 70s and 80s but there was no consistency until we got a good waveform as above. Positive well nourished, well developed and obese General Appearance ED: well developed and NAD Nutritional Appearance: obese HEENT Reports moist mucous membranes Negative for trauma Eyes General Eye ED: Negative for pale conjunctiva or scleral icterus Neck no lymphadenopathy and no JVD Chest Wall inspection of chest normal Resp normal respiratory effort and clear to auscultation bilaterally Auscultation: Negative for rales, rhonchi or wheezes Cardio regular rate GI normal to inspection, nondistended, normoactive bowel sounds and non-tender Palpation: soft Extremity normal to inspection Extremity Narrative: No significant peripheral edema. He has palpable thrill in his dialysis access in his right anterior thigh. General Extremety ED: Negative for edema General Extremity: Negative for edema Neuro oriented x3 Sensorium / Orientation: alert Psych mental status grossly normal Psych Narrative: Somewhat flat affect. Skin no rashes or lesions noted Skin Narrative: Mildly pale nailbeds but his palms and conjunctivodo not look notably pale. MDM MDM MDM Narrative Medical decision making narrative: Patient's labs show baseline hemoglobin. INR is still a bit up. He is going to hold this for another day and follow-up with his physician. Electrolytes show no marked abnormalities in light of his renal failure. His troponin is negative. Chest x-ray is stable. I talk with the patient. He states his saturations most certainly drop when he walks. We did walk him his saturation dropped to 96% at the lowest. Is 99% sitting still. At this point I do not have a reason to admit this patient. He has longstanding symptoms. I think he is safe for discharge and follow-up. Lab Data Attestation: I reviewed the patient's lab results. Labs: Laboratory Results - last 24 hr 07/23/21 07/23/21 07/23/21 15:22 15:22 15:22 WBC 6.5 RBC 3.24 L Hgb 10.0 L Hct 30.8 L MCV 95.1 H MCH 30.9 MCHC 32.5 D RDW Std Deviation 70.7 H RDW Coeff of Lance 20.6 H Plt Count 350 MPV 9.7 Immature Gran % (Auto) 1.200 H Neut % (Auto) 72.6 H Lymph % (Auto) 8.9 L [place] % (Auto) 13.6 H Eos % (Auto) 3.1 Baso % (Auto) 0.6 Absolute Neuts (auto) 4.7 Absolute Lymphs (auto) 0.58 L Nucleated RBC % 0 Differential Comment SCANNED PT 42.7 H INR 4.6 H* Sodium 137 Potassium 3.6 Chloride 94 L Carbon Dioxide 33.0 H Anion Gap 10 BUN 23 H Creatinine 5.62 H Estim Creat Clear Calc 18.22 Est GFR (MDRD) Af Amer 15 L Est GFR (MDRD) Non-Af 12 L BUN/Creatinine Ratio 4.1 L Glucose 100 Calcium 9.9 Troponin I High Sens 16 Radiography Diagnostic Testing: Clinical Impression(s) from Imaging Studies Chest X-Ray 07/23/21 15:07 IMPRESSION: Stable bibasilar pulmonary infiltrates. Electronically Signed: Ed Vega MD at 15:57 EDT , Service support , EKG Initial EKG: Comments: EKG done for part of medical evaluation and chronic dyspnea and chest pain. EKG read by me shows a normal sinus rhythm with first-degree AV block. Overall rate is 87. He is not in atrial fibrillation or flutter at this time. AL interval is long. QRS duration is normal. QTc is long. Overall this is similar to several priors that I looked at on the computer. Discharge Plan Triage Chief Complaint: Shortness of Breath ED Provider: Rick Chambers Dx/Rx/DC Orders Clinical Impression: Dyspnea on exertion, Chronic hypotension Prescriptions: No Action warfarin 5 MG tablet 5 mg PO DAILY RF: 0 Hold Instructions: Follow up for INR tomorrow and hold until further ins tructed by Dr. Moreno--> INR today was 3.7 brimonidine 1 DROP bottle 1 drp LEFT EYE TID Qty: 1 RF: 0 Auryxia 210 mg iron tablet 3 tab PO TIDCM RF: 0 cephalexin 500 mg capsule 500 mg PO Q6H 10 Days Qty: 40 RF: 0 sulfamethoxazole-trimethoprim [Bactrim DS] 800-160 mg tablet 1 tab PO BID 10 Days Qty: 20 RF: 0 oxycodone-acetaminophen [Percocet] 5-325 mg tablet 1 tab PO Q8H PRN (Reason: pain) 4 Days Qty: 14 RF: 0 amiodarone [Pacerone] 200 mg tablet 200 mg PO DAILY Qty: 90 RF: 3 midodrine 5 mg tablet 5 mg PO TID Qty: 270 RF: 3 (DME) BP monitor large cuff See Rx Instructions .Route .MEDSUPPLY Qty: 1 RF: 0 Primary Care Provider: Pawel Banda Referrals: Pawel Banda MD [Primary Care Provider] - 2 Days Disposition Disposition: Home, Self Care Discharge Date/Time: 07/23/21 20:58
[2021-07-23 15:48] LABS: Absolute Lymphocyte Count 0.58 X10^3/uL (0.83-4.51); Absolute Neutrophil Count 4.7 X10^3/uL (2.0-7.7); Basophil# 0.04 X10^3/uL; Basophil% 0.6 % (0-1); Eosinophils% 3.1 % (0-5); Hematocrit 30.8 % (40-54); Lymphocyte # 0.58 X10^3/ul (0.83-4.51); Lymphocyte % 8.9 % (19-41); Mean Corp Hgb Conc 32.5 g/dL (32-36); Mean Corpuscular Hgb 30.9 pg (27.0-32.0); Mean Corpuscular Volume 95.1 fL (80-94); Mean Platelet Vol. 9.7 fl (6.2-12.0); Monocyte# 0.89 X10^3/uL; Monocyte% 13.6 % (0-10); NRBC Flagged by Analyzer 0 % (0-5); Neutrophil # 4.74 X10^3/uL (2.7-7.7); Neutrophil % 72.6 % (47-70); POSITIVE DIFFERENTIAL YES; POSITIVE MORPHOLOGY YES; Platelet Count 350 K/mm3 (150-450); RBC Distribution Width CV 20.6 % (11.6-14.6); RBC Distribution Width SD 70.7 fl (35.1-43.9); Red Blood Count 3.24 M/mm3 (4.6-6.2); White Blood Count 6.5 K/mm3 (4.4-11.0)
[2021-07-23 15:50] LABS: Differential Indicated SCAN CRITERIA MET
[2021-07-23 15:57] LABS: Anion Gap 10 (5-15); BUN 23 mg/dL (7-18); BUN/Creat Ratio 4.1 RATIO (10-20); Calcium,Total 9.9 mg/dL (8.5-10.1); Chloride 94 mmol/L (98-107); Creatinine, Serum 5.62 mg/dL (0.70-1.30); EST Glomerular Filtration Rate 12 mL/min (>60); Est Glom Filt Rate - Afr Amer 15 mL/min (>60); Estimated Creatinine Clearance 18.22 ml/min; Glucose 100 mg/dL (74-106); Potassium 3.6 mmol/L (3.5-5.1); Prothrombin Time (Protime)PT. 42.7 SECONDS (11.7-14.9); Sodium Level 137 mmol/L (136-145); Troponin-I HS 16 pg/mL (3.0-78.0)
[2021-07-23 16:24] LABS: International Normalized Ratio 4.6
[2021-07-23 16:47] LABS: Differential Comment SCANNED
== END 2021-07-23 20:58 | disposition home or self-care (01) ==
PROVIDERS: Emergency Provider Emergency Medicine; PCP Internal Medicine
DX: R06.09 Other forms of dyspnea (principal); I95.89 Other hypotension; E66.9 Obesity, unspecified; G47.33 Obstructive sleep apnea (adult) (pediatric); I25.2 Old myocardial infarction; N18.6 End stage renal disease; Z86.16 Personal history of COVID-19; Z99.2 Dependence on renal dialysis; Z86.718 Personal history of other venous thrombosis and embolism; Z86.711 Personal history of pulmonary embolism; Z79.899 Other long term (current) drug therapy
CPT/HCPCS: 71045; 80048; 84484; 85025; 85610; 93005; 99285; A4216

== ENCOUNTER 2021-10-17 12:47 | Outpatient (RCR) | payer MEDICARE, MEDICAID, SELFPAY ==
[2021-10-02 12:09] LABS: International Normalized Ratio 3.2; Prothrombin Time (Protime)PT. 32.1 SECONDS (11.7-14.9)
[2021-10-08 15:44] LABS: Prothrombin Time (Protime)PT. 42.2 SECONDS (11.7-14.9)
[2021-10-08 15:53] LABS: International Normalized Ratio 4.5
[2021-10-17 13:41] LABS: International Normalized Ratio 2.9; Prothrombin Time (Protime)PT. 29.6 SECONDS (11.7-14.9)
== END 2021-10-29 18:00 | disposition home or self-care (01) ==
LOC: LAB 12:47
PROVIDERS: PCP Internal Medicine; Referring Provider Internal Medicine Cardiovascular Disease; Visit Provider Internal Medicine Cardiovascular Disease
DX: I48.0 Paroxysmal atrial fibrillation (principal); I48.92 Unspecified atrial flutter; Z79.01 Long term (current) use of 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s
CPT/HCPCS: 36415; 85610

== ENCOUNTER 2021-11-12 08:01 | Emergency (ER) | payer MEDICARE, MEDICAID, SELFPAY ==
[2021-11-12 08:07] VITALS: BP 115/71; PULSE 95; RESP 15; TEMP 36.5; O2SAT 95; BMI 38.8
--- NOTE | 2021-11-12 09:22 | EKG12_ITS ---
Test Reason : REPEAT-CP Blood Pressure : / mmHG Vent. Rate : 086 BPM Atrial Rate : 086 BPM P-R Int : 220 ms QRS Dur : 076 ms QT Int : 390 ms P-R-T Axes : 083 154 056 degrees QTc Int : 466 ms Sinus rhythm with 1st degree A-V block with Premature atrial complexes Low voltage QRS Septal infarct , age undetermined , cannot be excluded Lateral infarct , age undetermined , cannot be excluded Abnormal ECG Confirmed by ADALGISA STAHL, GOGO ([id number]), magazine editor MARGARITO CHANDLER ([id number]) on 11/14/2021 11:30:12 AM Referred By: ARABELLA Confirmed By:GOGO DIANA MD
--- NOTE | 2021-11-12 09:31 | EDS_ITS ---
HPI History of Present Illness Chief Complaint: Chest Pain Informant: patient Onset/Context/Timing Onset: Days (5) Activity at onset: gradual Timing: Continuous Quality: Positive for Heaviness Location: Substernal, Right Chest and Left Chest Worsened By: Nothing Relieved By: Nothing Associated Symptoms: Positive for Dyspnea, Cough and Lightheadedness; Negative for Nausea, Vomiting, Diaphoresis, Fever, Acid Reflux and Palpitations Narrative Narrative: Patient presents with chest pain that has been constant for the past 5 days. Patient states it started on the right side of his chest and went to the substernal and then to the left side of his chest. Patient states it has been constant. Patient describes as a heaviness. Patient states nothing makes it better nothing makes it worse. Patient admits to some shortness of breath and cough. Patient also admits to some lightheadedness. Patient did have a recent mitral valve replacement. 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) Central retinal artery occlusion of left eye (10/09/20) Chronic kidney disease-mineral and bone disorder Chronic pelvic pain in male Chronic ulcer of back COVID-19 virus detected (10/02/21) Daily headache Dental caries Dialysis AV fistula malfunction Dialysis patient ESRD on hemodialysis Essential (primary) hypertension Expressive aphasia (04/05/20) Hearing loss Hematuria History of bacterial endocarditis History of blood clots History of non-ST elevation myocardial infarction (NSTEMI) (11/08/19) History of pulmonary embolus (PE) History of venous thromboembolism 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 due to renal insufficiency Hypotension of hemodialysis 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 senior living current use of 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 Mechanical complication of arteriovenous fistula surgically created Medication side effects Mitral valve annular calcification Morbidly obese Non compliance w medication regimen Non-healing non-surgical wound Nonrheumatic mitral valve stenosis with insufficiency Obstructive sleep apnea Pain of right lower extremity Paroxysmal atrial fibrillation (06/10/20) Paroxysmal atrial flutter 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) Pelvic mass Postoperative complete heart block (08/21/21) Sepsis Thrombosis of kidney dialysis arteriovenous graft Unspecified symptoms and signs involving cognitive functions and awareness (04/05/20) Home Medications brimonidine 1 drp LEFT EYE TID #1 bottle 10/09/20 [Rx Last Taken 06/03/21] BP monitor #1 ea 07/17/21 [Rx Last Taken Unknown] echinacea 380 mg capsule 380 mg PO DAILY 10/08/21 [History Last Taken Unknown] aspirin 81 mg tablet,delayed release 81 mg PO DAILY 10/29/21 [History Last Taken Unknown] midodrine 10 mg tablet 10 mg PO TID tab 10/29/21 [History Last Taken Unknown] polyethylene glycol 3350 17 gram/dose oral powder 17 g PO BID PRN g 10/29/21 [History Last Taken Unknown] trazodone 50 mg tablet 50 mg PO QHS tab 10/29/21 [History Last Taken Unknown] amoxicillin-pot clavulanate 875 mg PO Q12H #20 tablet 11/12/21 [Rx Last Taken Unknown] warfarin 2 mg PO TU 11/12/21 [History Last Taken Unknown] warfarin 4 mg PO SUMOWETHFRSA 11/12/21 [History Last Taken Unknown] Allergy/AdvReac Type Severity Reaction Status Date / Time gabapentin Allergy Other Verified 11/12/21 08:07 Family History Other Adopted Surgical History History of angioplasty of peripheral vessel (08/28/21) History of cardioversion (12/02/18) history of cather replacement History of herniorrhaphy History of left heart catheterization (09/17/18) History of mitral valve replacement with bioprosthetic valve (08/21/21) History of repair of congenital cleft palate History of right and left heart catheterization (08/16/21) History of tooth extraction, class IV edentulism (09/11/21) Hx of mitral valve replacement Mechanical complication of dialysis catheter Status post creation of arteriovenous fistula Social History household members: none Smoking Status: Never smoker alcohol intake: never substance use type: marijuana what type of physical activity do you participate in: none ROS ROS ED Constitutional Constitutional ED: Denies chills or fever(s) Eyes Eyes: Denies blurry vision or change in vision ENT ENT ED: Denies rhinorrhea or sore throat Cardiovascular Cardiovascular: Reports chest pain; Denies palpitations Respiratory/Chest Respiratory/Chest: Reports cough and dyspnea Gastrointestinal Gastrointestinal: Denies abdominal pain, nausea or vomiting Musculoskeletal Musculoskeletal: Denies back pain or neck pain Integumentary Denies abscess or rash Neurologic Neurologic: Denies headache(s) or weakness Allergic/Immunologic Allergic/Immunologic ED: Denies mouth swelling or urticaria EXAM Physical Exam Const Vital Signs: 11/12/21 08:07 11/12/21 09:39 11/12/21 09:58 Temperature 97.7 F L Temperature Source Temporal Pulse Rate 95 Respiratory Rate 15 Respiratory Pattern Normal Blood Pressure 115/71 Blood Pressure Mean 85 Pulse Ox 95 Oxygen Delivery Method Room Air Nasal Cannula Oxygen Flow Rate (L/min) 2 11/12/21 10:00 11/12/21 12:19 Temperature Temperature Source Pulse Rate 68 87 Respiratory Rate 16 13 Respiratory Pattern Blood Pressure 91/59 L 123/70 H Blood Pressure Mean 69 Pulse Ox 100 100 Oxygen Delivery Method Nasal Cannula Oxygen Flow Rate (L/min) 2 Positive well nourished, well developed and obese General Appearance ED: well developed Nutritional Appearance: obese HEENT normocephalic and atraumatic Eyes PERRL and EOMs intact bilaterally Neck supple and no JVD Chest Wall palpation of chest normal Resp normal respiratory effort and clear to auscultation bilaterally Effort and Inspection: Negative for respiratory distress Cardio regular rate, regular rhythm and no murmurs GI normal to inspection, nondistended, normoactive bowel sounds, soft to palpation, non-tender and non-distended Extremity normal to inspection General Extremety ED: Negative for edema or tenderness General Extremity: Negative for edema Neuro oriented x3, CN's II-XII intact bilaterally and no sensory deficits noted Sensorium / Orientation: awake and alert Motor Exam: strength 5/5 throughout Psych mental status grossly normal Heart Score History: Slightly/Non-Suspicious ECG: Normal Age: </= 45 years Risk Factors: >/= 3 Risk Factors or History of CAD Troponin: </= Normal Limit Score: 2 MDM MDM MDM Narrative Medical decision making narrative: Patient was aspirin here. EKG was obtained. On my interpretation, it showed a normal sinus rhythm with a rate of 93. DE interval, QRS interval, and QTc intervals were all normal. There was right axis deviation at 149. There are no acute ST or T wave changes. CBC was essentially within normal limits. PT with INR was therapeutic. PTT was 47.3. Basic metabolic profile was obtained. BUN was 57 and creatinine was 10.6. These are consistent with prior results. Patient is due for dialysis today. Initial high-sensitivity troponin was normal at 6. Because of his recent surgery, CTA of the chest was ordered. There is suboptimal filling of the pulmonary vasculature. There is a patchy infiltrate in the left lower lobe. There is no other acute process noted. This was interpreted by the radiologist and reviewed by myself. Patient was advised of his findings. Patient was given a dose of Augmentin here. Patient was given a prescription for Augmentin. Patient was instructed to follow-up with his primary care physician in 5 to 7 days. Patient was instructed to continue his dialysis as scheduled. Patient understood and was agreeable with the plan. All questions were answered. Prior to discharge, the patient felt like he was having more palpitations. Repeat EKG was obtained. On my interpretation, there is a normal sinus rhythm with a rate of 86. There are no acute ST or T wave changes. This was unchanged compared to previous EKG today. Patient was reassured of his findings. Patient was instructed to follow-up with his primary care physician and continue with his dialysis today. Lab Data Attestation: I reviewed the patient's lab results. Labs: Laboratory Results - last 24 hr 11/12/21 11/12/21 11/12/21 09:52 09:52 09:52 WBC 6.9 RBC 3.82 L Hgb 11.4 L Hct 35.5 L MCV 92.9 MCH 29.8 MCHC 32.1 RDW Std Deviation 58.2 H RDW Coeff of Lance 17.2 H Plt Count 168 MPV 10.5 Immature Gran % (Auto) 0.400 Neut % (Auto) 72.9 H Lymph % (Auto) 9.3 L [place] % (Auto) 16.4 H Eos % (Auto) 0.7 Baso % (Auto) 0.3 Absolute Neuts (auto) 5.0 Absolute Lymphs (auto) 0.64 L Nucleated RBC % 0 PT 25.6 H INR 2.4 APTT 47.3 H Sodium 134 L Potassium 5.0 Chloride 96 L Carbon Dioxide 30.0 Anion Gap 8 BUN 57 H Creatinine 10.60 H* Estim Creat Clear Calc 9.66 Est GFR (MDRD) Af Amer 7 L Est GFR (MDRD) Non-Af 6 L BUN/Creatinine Ratio 5.4 L Glucose 84 Calcium 9.4 Troponin I High Sens 6 Radiography Diagnostic Testing: Clinical Impression(s) from Imaging Studies Chest CTA 11/12/21 10:35 IMPRESSION: Limited evaluation of the pulmonary arterial branches due to marked degree of collateral circulation in the subcutaneous tissues. Calcification of the superior vena cava. Status post mitral valve replacement. Patchy left lower lobe infiltrate. Electronically Signed: Ed Vega MD at 11:01 EST , EKG Initial EKG: Attestation: I personally reviewed and interpreted this EKG as follows: Interpretation: Sinus Rhythm (93) and No Acute Injury Pattern Prior EKG tracings: available for review Prior: Unchanged (07/23/2021) Discharge Plan Triage Chief Complaint: Chest Pain ED Provider: Piero Marques Dx/Rx/DC Orders Clinical Impression: Community acquired pneumonia Instructions: ED Pneumonia (Adult) Prescriptions: New amoxicillin-pot clavulanate [amoxicillin-pot clavulanate] 875 MG tablet 875 mg PO Q12H Qty: 20 RF: 0 No Action aspirin [Adult Aspirin Regimen] 81 mg tablet,delayed release (DR/EC) 81 mg PO DAILY RF: 0 polyethylene glycol 3350 17 gram/dose powder 17 g PO BID PRNRF: 0 midodrine 10 mg tablet 10 mg PO TID RF: 0 trazodone 50 mg tablet 50 mg PO QHS RF: 0 brimonidine 1 DROP bottle 1 drp LEFT EYE TID Qty: 1 RF: 0 warfarin 2 mg Tablet 2 mg PO TU RF: 0 warfarin 2 mg tablet 4 mg PO SUMOWETHFRSA RF: 0 (DME) BP monitor large cuff See Rx Instructions .Route .MEDSUPPLY Qty: 1 RF: 0 echinacea 380 mg capsule 380 mg PO DAILY RF: 0 Primary Care Provider: Care Physician,No Primary Referrals: Care Physician,No Primary [Primary Care Provider] - Doctor,Your [STAFF PHYSICIAN] - 3-5 Days Disposition Disposition: Home, Self Care
[2021-11-12 10:00] VITALS: BP 91/59; PULSE 68; RESP 16; O2SAT 100
[2021-11-12 10:05] LABS: Absolute Lymphocyte Count 0.64 X10^3/uL (0.83-4.51); Basophil# 0.02 X10^3/uL; Basophil% 0.3 % (0-1); Eosinophil# 0.05 X10^3/uL; Eosinophils% 0.7 % (0-5); Hematocrit 35.5 % (40-54); Hemoglobin 11.4 g/dL (13.0-16.5); Lymphocyte # 0.64 X10^3/ul (0.83-4.51); Lymphocyte % 9.3 % (19-41); Mean Corp Hgb Conc 32.1 g/dL (32-36); Mean Corpuscular Hgb 29.8 pg (27.0-32.0); Mean Corpuscular Volume 92.9 fL (80-94); Mean Platelet Vol. 10.5 fl (6.2-12.0); Monocyte# 1.13 X10^3/uL; Monocyte% 16.4 % (0-10); NRBC Flagged by Analyzer 0 % (0-5); Neutrophil % 72.9 % (47-70); Platelet Count 168 K/mm3 (150-450); RBC Distribution Width CV 17.2 % (11.6-14.6); RBC Distribution Width SD 58.2 fl (35.1-43.9); Red Blood Count 3.82 M/mm3 (4.6-6.2); White Blood Count 6.9 K/mm3 (4.4-11.0)
[2021-11-12 10:14] LABS: International Normalized Ratio 2.4; Prothrombin Time (Protime)PT. 25.6 SECONDS (11.7-14.9)
[2021-11-12 10:15] LABS: Partial Thromboplast Time 47.3 Seconds (24.1-36.2)
[2021-11-12 10:24] LABS: Anion Gap 8 (5-15); BUN 57 mg/dL (7-18); BUN/Creat Ratio 5.4 RATIO (10-20); Calcium,Total 9.4 mg/dL (8.5-10.1); Chloride 96 mmol/L (98-107); EST Glomerular Filtration Rate 6 mL/min (>60); Est Glom Filt Rate - Afr Amer 7 mL/min (>60); Estimated Creatinine Clearance 9.66 ml/min; Glucose 84 mg/dL (74-106); Sodium Level 134 mmol/L (136-145); Troponin-I HS 6 pg/mL (3.0-78.0)
--- NOTE | 2021-11-12 10:35 | CT_ITS ---
STUDY: CTA CHEST REASON FOR EXAM: Male, 41 years old. Chest pain RADIATION DOSAGE (If Supplied By Facility): CTDIvol = ( 32.83 ) mGy, DLP = ( 581.49 ) mGycm TECHNIQUE: The examination was performed with the intravenous administration of IV 100mL Isovue-370. Post-processing of the angiographic images was performed, with multiplanar reformation and 3D reconstruction. Individualized dose optimization techniques were used for this CT. COMPARISON: Comparison is made with prior study dated 04/04/2021. FINDINGS: Limited evaluation of the pulmonary arteries due to the marked degree of the subcutaneous venous collaterals. There is dense calcification of the superior vena cava. Normal thoracic aorta and visualized great vessels. There is no demonstrated aortic dissection. The patient is status post mitral valve replacement. There are calcifications of the coronary arteries. Normal mediastinum. Normal hilar regions. Normal visualized trachea and bronchi. The lungs are well expanded. There is thickening of the left major fissure. Patchy infiltrate in the left lower lobe. Stable 1.5 cm pleural-based nodule in the posterior aspect of the left lower lobe. Normal pleura. Normal chest wall structures. Dextroscoliosis. Normal visualized upper abdomen. CT/CTA Chest W/WO Contrast IMPRESSION: Limited evaluation of the pulmonary arterial branches due to marked degree of collateral circulation in the subcutaneous tissues. Calcification of the superior vena cava. Status post mitral valve replacement. Patchy left lower lobe infiltrate. Electronically Signed: Ed Vega MD at 11:01 EST ,
--- NOTE | 2021-11-12 12:11 | EKG12_ITS ---
Test Reason : CP Blood Pressure : / mmHG Vent. Rate : 093 BPM Atrial Rate : 093 BPM P-R Int : 196 ms QRS Dur : 076 ms QT Int : 366 ms P-R-T Axes : 078 149 083 degrees QTc Int : 455 ms Normal sinus rhythm Low voltage QRS Septal infarct , age undetermined , cannot be excluded Lateral infarct , age undetermined , cannot be excluded Abnormal ECG Confirmed by ADALGISA STAHL, GOGO ([id number]), features editor MARGARITO CHANDLER ([id number]) on 11/14/2021 11:33:25 AM Referred By: FLO Confirmed By:GOGO DIANA MD
[2021-11-12 12:19] VITALS: BP 123/70; PULSE 87; RESP 13; O2SAT 100
== END 2021-11-12 12:45 | disposition home or self-care (01) ==
PROVIDERS: Emergency Provider Emergency Medicine; Visit Provider Emergency Medicine
DX: J18.9 Pneumonia, unspecified organism (principal); Z99.2 Dependence on renal dialysis; N18.6 End stage renal disease; I25.2 Old myocardial infarction; E66.9 Obesity, unspecified; G47.33 Obstructive sleep apnea (adult) (pediatric); F12.10 Cannabis abuse, uncomplicated; Z95.2 Presence of prosthetic heart valve; Z86.16 Personal history of COVID-19
CPT/HCPCS: 71275; 80048; 84484; 85025; 85610; 85730; 93005; 99285; Q9967; A4216

== ENCOUNTER 2021-11-20 13:50 | Outpatient (RCR) | payer MEDICARE, MEDICAID, SELFPAY ==
[2021-10-30 15:15] LABS: International Normalized Ratio 1.9; Prothrombin Time (Protime)PT. 20.8 SECONDS (11.7-14.9)
[2021-11-07 15:36] LABS: International Normalized Ratio 1.5; Prothrombin Time (Protime)PT. 17.5 SECONDS (11.7-14.9)
[2021-11-20 14:59] LABS: International Normalized Ratio 2.4; Prothrombin Time (Protime)PT. 25.6 SECONDS (11.7-14.9)
== END 2021-11-20 18:00 | disposition home or self-care (01) ==
LOC: LAB 13:50
PROVIDERS: PCP Internal Medicine; Referring Provider Internal Medicine Cardiovascular Disease; Visit Provider Internal Medicine Cardiovascular Disease
DX: I48.0 Paroxysmal atrial fibrillation (principal); I48.92 Unspecified atrial flutter; Z79.01 Long term (current) use of 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s
CPT/HCPCS: 36415; 85610

== ENCOUNTER 2021-12-18 09:17 | Outpatient (RCR) | payer MEDICARE, MEDICAID, SELFPAY ==
[2021-12-18 10:00] LABS: International Normalized Ratio 1.9; Prothrombin Time (Protime)PT. 21.4 SECONDS (11.7-14.9)
== END 2021-12-27 18:00 | disposition home or self-care (01) ==
LOC: LAB 09:17
PROVIDERS: Referring Provider Internal Medicine Cardiovascular Disease; Visit Provider Internal Medicine Cardiovascular Disease
DX: I48.0 Paroxysmal atrial fibrillation (principal); I48.92 Unspecified atrial flutter; Z79.01 Long term (current) use of 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s
CPT/HCPCS: 36415; 85610

== ENCOUNTER 2021-12-29 01:30 | Emergency (ER) | payer MEDICARE, MEDICAID, SELFPAY ==
[2021-12-29 01:31] VITALS: BP 132/71; RESP 22; TEMP 37.1; BMI 35.5
[2021-12-29 01:35] VITALS: PULSE 104; O2SAT 98
--- NOTE | 2021-12-29 02:00 | RAD_ITS ---
STUDY: X-RAY CHEST REASON FOR EXAM: Male, 41 years old. cough TECHNIQUE: PA and lateral views of the chest. COMPARISON: Previous chest radiographs of 07/23/2021 and 07/19/2021.. FINDINGS: Interval median sternotomy with placement of mitral valve prosthesis and left atrial appendage clamping. Epicardial lead fragments remain in place. satellite project site monitor leads overlie the chest wall. The lungs are clear and expanded. No pleural effusion or pneumothorax. Normal size heart. Normal mediastinum and michael. Normal visualized pulmonary arteries. Normal visualized aortic arch and descending thoracic aorta. Stable thoracic dextroscoliosis. Chronic deformity of the left humeral head, unchanged. There is no demonstrated abnormality of the visualized soft tissue structures of the upper abdomen. RAD/Chest PA and Lateral IMPRESSION: Post median sternotomy with cardiac valve replacement and left atrial appendage clamping. No pulmonary edema or other acute process. Electronically Signed: Sam Stone MD at 2:34 EDT ,
[2021-12-29] MEDS: Ipratropium/Albuterol Sulfate 3 ML AMPUL.NEB INHALATION (02:17)
[2021-12-29 02:18] VITALS: PULSE 100; RESP 20
[2021-12-29 03:11] VITALS: O2SAT 98
--- NOTE | 2021-12-29 03:26 | EX.ED.DYSGE1 ---
HPI History of Present Illness Chief Complaint: Shortness of Breath Narrative Narrative: Patient is a 41-year-old male with complex medical history of end-stage renal disease on dialysis previous cardiomyopathy requiring open heart surgery and retinal vein occlusion leading to loss of vision in his left eye. He states that he has had pneumonia in the past and he has noticed some shortness of breath with exertion over the past 1 to 2 days and is concerned for this and therefore comes in for evaluation. The patient denies any known sick contacts or Covid exposure. He denies any fevers. He states he has been taking his medication as directed and reports he did go to dialysis yesterday as he does normally with his schedule being Friday and Friday. 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) Central retinal artery occlusion of left eye (10/09/20) Chronic kidney disease-mineral and bone disorder Chronic pelvic pain in male Chronic ulcer of back COVID-19 virus detected (10/02/21) Daily headache Dental caries Dialysis AV fistula malfunction Dialysis patient ESRD on hemodialysis Essential (primary) hypertension Expressive aphasia (04/05/20) Hearing loss Hematuria History of bacterial endocarditis History of blood clots History of non-ST elevation myocardial infarction (NSTEMI) (11/08/19) History of pulmonary embolus (PE) History of venous thromboembolism 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 due to renal insufficiency Hypotension of hemodialysis 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 MCC current use of 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 Mechanical complication of arteriovenous fistula surgically created Medication side effects Mitral valve annular calcification Morbidly obese Non compliance w medication regimen Non-healing non-surgical wound Nonrheumatic mitral valve stenosis with insufficiency Obstructive sleep apnea Pain of right lower extremity Paroxysmal atrial fibrillation (06/10/20) Paroxysmal atrial flutter 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) Pelvic mass Postoperative complete heart block (08/21/21) Sepsis Thrombosis of kidney dialysis arteriovenous graft Unspecified symptoms and signs involving cognitive functions and awareness (04/05/20) Home Medications brimonidine 1 drp LEFT EYE TID #1 bottle 10/09/20 [Rx Last Taken 06/03/21] BP monitor #1 ea 07/17/21 [Rx Last Taken Unknown] echinacea 380 mg capsule 380 mg PO DAILY 10/08/21 [History Last Taken Unknown] aspirin 81 mg tablet,delayed release 81 mg PO DAILY 10/29/21 [History Last Taken Unknown] midodrine 10 mg tablet 10 mg PO TID tab 10/29/21 [History Last Taken Unknown] polyethylene glycol 3350 17 gram/dose oral powder 17 g PO BID PRN g 10/29/21 [History Last Taken Unknown] trazodone 50 mg tablet 50 mg PO QHS tab 10/29/21 [History Last Taken Unknown] amoxicillin-pot clavulanate 875 mg PO Q12H #20 tablet 11/12/21 [Rx Last Taken Unknown] warfarin 2 mg PO TU 11/12/21 [History Last Taken Unknown] warfarin 4 mg PO SUMOWETHFRSA 11/12/21 [History Last Taken Unknown] oxycodone-acetaminophen [Percocet] 1 tab PO Q6H PRN 3 Days #12 tab 12/29/21 [Rx Last Taken Unknown] Allergy/AdvReac Type Severity Reaction Status Date / Time gabapentin Allergy Other Verified 12/29/21 01:34 Family History Other Adopted Surgical History History of angioplasty of peripheral vessel (08/28/21) History of cardioversion (12/02/18) history of cather replacement History of herniorrhaphy History of left heart catheterization (09/17/18) History of mitral valve replacement with bioprosthetic valve (08/21/21) History of repair of congenital cleft palate History of right and left heart catheterization (08/16/21) History of tooth extraction, class IV edentulism (09/11/21) Hx of mitral valve replacement Mechanical complication of dialysis catheter Status post creation of arteriovenous fistula Social History household members: none Smoking Status: Never smoker alcohol intake: never substance use type: marijuana what type of physical activity do you participate in: none ROS ROS ED Constitutional Constitutional ED: Denies chills or fever(s) ENT ENT ED: Denies sore throat Cardiovascular Cardiovascular: Denies chest pain Respiratory/Chest Respiratory/Chest: Reports dyspnea and dyspnea on exertion; Denies cough Gastrointestinal Gastrointestinal: Denies abdominal pain, diarrhea, nausea or vomiting Musculoskeletal Musculoskeletal: Denies myalgias Integumentary Denies rash Neurologic Neurologic: Denies headache(s) Hematologic/Lymphatic Hematologic/Lymphatic: Denies easy bleeding or easy bruising EXAM Physical Exam Const Vital Signs: 12/29/21 01:31 12/29/21 01:35 12/29/21 02:18 Temperature 98.7 F Temperature Source Temporal Pulse Rate 104 H 100 Respiratory Rate 22 H 20 H Respiratory Effort Short of Breath Respiratory Pattern Tachypnea Blood Pressure 132/71 H Blood Pressure Mean 91 Pulse Ox 98 Oxygen Delivery Method Room Air Room Air 12/29/21 03:39 Temperature Temperature Source Pulse Rate 86 Respiratory Rate 20 H Respiratory Effort Respiratory Pattern Blood Pressure Blood Pressure Mean Pulse Ox 98 Oxygen Delivery Method Positive well nourished and well developed General Appearance ED: well developed HEENT HEENT Narrative: No tongue or lip swelling no oral lesions no airway edema or compromise Eyes PERRL and EOMs intact bilaterally Neck supple and no JVD Chest Wall Chest Narrative: There is reproducible left anterior chest wall pain with palpation without bony deformity or crepitance Resp normal respiratory effort and clear to auscultation bilaterally Resp Narrative: Breath sounds are slight diminished throughout but overall clear to auscultation with no nasal flaring retractions tachypnea or accessory muscle use Cardio regular rate and regular rhythm Rate: other Other Details: Patient has a midsystolic click consistent with his previous heart surgery GI non-tender, non-distended and no masses GI Narrative: No voluntary guarding or rigidity no pulsatile mass Auscultation: normoactive bowel sounds Palpation: soft Extremity Extremity Narrative: Trace to +1 pitting edema in the bilateral lower extremities that is equal and symmetric Neuro oriented x3 and CN's II-XII intact bilaterally Sensorium / Orientation: alert Psych mental status grossly normal Skin no rashes or lesions noted MDM MDM MDM Narrative Medical decision making narrative: Patient presented to the ER afebrile satting 95 to 100% on room air with no signs of respiratory distress. He discussed he had noticed some shortness of breath with exertion over the past 1 to 2 days and was concerned about pneumonia as he has had in the past. Secondary to this I elected to perform a chest x-ray but as he was afebrile and had no signs of respiratory distress or hypoxia I do not feel there is need for blood work at this time. X-ray revealed no vascular congestion pleural effusion pneumothorax or infiltrate. The patient was ambulated and his pulse ox was 95 to 100% for the entire time. The patient also states that he had dialysis yesterday which is his normal schedule day and therefore my concern for electrolyte abnormality such as hyperkalemia is low and I do not feel there is need to recheck blood work at this time especially as patient only has symptoms with ambulation. As the patient does have increased pain to his left shoulder with chronic breakdown I will place him on a few days with the pain medication but at this time as his vitals are stable he does not have pneumonia or vascular congestion and can ambulate without any type of desaturation I do not feel there is need for further inpatient work-up and patient can be discharged home and follow-up on an outpatient basis. Radiography Diagnostic Testing: Clinical Impression(s) from Imaging Studies Chest X-Ray 12/29/21 02:00 IMPRESSION: Post median sternotomy with cardiac valve replacement and left atrial appendage clamping. No pulmonary edema or other acute process. 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, ESRD (end stage renal disease), Degenerative joint disease of left shoulder Instructions: ED Dyspnea Prescriptions: New oxycodone-acetaminophen [Percocet] 5-325 mg tablet 1 tab PO Q6H PRN (Reason: pain) 3 Days Qty: 12 RF: 0 No Action aspirin [Adult Aspirin Regimen] 81 mg tablet,delayed release (DR/EC) 81 mg PO DAILY RF: 0 polyethylene glycol 3350 17 gram/dose powder 17 g PO BID PRNRF: 0 midodrine 10 mg tablet 10 mg PO TID RF: 0 trazodone 50 mg tablet 50 mg PO QHS RF: 0 brimonidine 1 DROP bottle 1 drp LEFT EYE TID Qty: 1 RF: 0 warfarin 2 mg Tablet 2 mg PO TU RF: 0 warfarin 2 mg tablet 4 mg PO SUMOWETHFRSA RF: 0 amoxicillin-pot clavulanate [amoxicillin-pot clavulanate] 875 MG tablet 875 mg PO Q12H Qty: 20 RF: 0 (DME) BP monitor large cuff See Rx Instructions .Route .MEDSUPPLY Qty: 1 RF: 0 echinacea 380 mg capsule 380 mg PO DAILY RF: 0 Primary Care Provider: Care Physician,No Primary Referrals: Shahram Hermosillo MD [NON-STAFF] - 3-5 Days Activity Restrictions/Additional Instructions: Please follow-up with primary care to discuss further testing if symptoms persist and continue to go to dialysis as previously directed and continue home medications Disposition Disposition: Home, Self Care Discharge Date/Time: 12/29/21 03:45
[2021-12-29 03:39] VITALS: PULSE 86; RESP 20; O2SAT 98
== END 2021-12-29 03:45 | disposition home or self-care (01) ==
PROVIDERS: Emergency Provider Emergency Medicine; Visit Provider Emergency Medicine
DX: R06.00 Dyspnea, unspecified (principal); N18.6 End stage renal disease; M19.012 Primary osteoarthritis, left shoulder; F12.90 Cannabis use, unspecified, uncomplicated; I25.2 Old myocardial infarction; G47.33 Obstructive sleep apnea (adult) (pediatric); Z86.16 Personal history of COVID-19; Z79.01 Long term (current) use of 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s
CPT/HCPCS: 71046; 94640; 99282

== ENCOUNTER 2022-01-02 16:40 | Emergency (ER) | payer MEDICARE, MEDICAID, SELFPAY ==
[2022-01-02 16:42] VITALS: BP 117/75; PULSE 92; RESP 24; TEMP 36.6; O2SAT 94; BMI 36.0
[2022-01-02 16:50] VITALS: O2SAT 100
--- NOTE | 2022-01-02 16:55 | EDS_ITS ---
HPI History of Present Illness Chief Complaint: Fall Narrative Narrative: 41-year-old male presenting for right leg pain and left ankle pain. Patient states that he tried to get out of the car yesterday and his left leg was asleep and he fell on both of his knees. He states that his left foot hurts and his right knee hurts. He was able to walk up until this afternoon. He is able to go to dialysis and completed. He gets dialysis Friday, Friday, Friday for end-stage renal disease. He states the pain is progressively worse. Denies any numbness of tingling currently. 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) Central retinal artery occlusion of left eye (10/09/20) Chronic kidney disease-mineral and bone disorder Chronic pelvic pain in male Chronic ulcer of back COVID-19 virus detected (10/02/21) Daily headache Dental caries Dialysis AV fistula malfunction Dialysis patient ESRD on hemodialysis Essential (primary) hypertension Expressive aphasia (04/05/20) Hearing loss Hematuria History of bacterial endocarditis History of blood clots History of non-ST elevation myocardial infarction (NSTEMI) (11/08/19) History of pulmonary embolus (PE) History of venous thromboembolism 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 due to renal insufficiency Hypotension of hemodialysis 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 Mechanical complication of arteriovenous fistula surgically created Medication side effects Mitral valve annular calcification Morbidly obese Non compliance w medication regimen Non-healing non-surgical wound Nonrheumatic mitral valve stenosis with insufficiency Obstructive sleep apnea Pain of right lower extremity Paroxysmal atrial fibrillation (06/10/20) Paroxysmal atrial flutter 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) Pelvic mass Postoperative complete heart block (08/21/21) Sepsis Thrombosis of kidney dialysis arteriovenous graft Unspecified symptoms and signs involving cognitive functions and awareness (04/05/20) Home Medications brimonidine 1 drp LEFT EYE TID #1 bottle 10/09/20 [Rx Last Taken 06/03/21] BP monitor #1 ea 07/17/21 [Rx Last Taken Unknown] echinacea 380 mg capsule 380 mg PO DAILY 10/08/21 [History Last Taken Unknown] aspirin 81 mg tablet,delayed release 81 mg PO DAILY 10/29/21 [History Last Taken Unknown] midodrine 10 mg tablet 10 mg PO TID tab 10/29/21 [History Last Taken Unknown] polyethylene glycol 3350 17 gram/dose oral powder 17 g PO BID PRN g 10/29/21 [History Last Taken Unknown] trazodone 50 mg tablet 50 mg PO QHS tab 10/29/21 [History Last Taken Unknown] amoxicillin-pot clavulanate 875 mg PO Q12H #20 tablet 11/12/21 [Rx Last Taken Unknown] warfarin 2 mg PO TU 11/12/21 [History Last Taken Unknown] warfarin 4 mg PO SUMOWETHFRSA 11/12/21 [History Last Taken Unknown] oxycodone-acetaminophen [Percocet] 1 tab PO Q6H PRN 3 Days #12 tab 12/29/21 [Rx Last Taken Unknown] Allergy/AdvReac Type Severity Reaction Status Date / Time gabapentin Allergy Other Verified 01/02/22 16:41 Family History Other Adopted Surgical History History of angioplasty of peripheral vessel (08/28/21) History of cardioversion (12/02/18) history of cather replacement History of herniorrhaphy History of left heart catheterization (09/17/18) History of mitral valve replacement with bioprosthetic valve (08/21/21) History of repair of congenital cleft palate History of right and left heart catheterization (08/16/21) History of tooth extraction, class IV edentulism (09/11/21) Hx of mitral valve replacement Mechanical complication of dialysis catheter Status post creation of arteriovenous fistula Social History household members: none Smoking Status: Never smoker alcohol intake: never substance use type: marijuana what type of physical activity do you participate in: none ROS ROS ED Constitutional Constitutional ED: Denies chills or fever(s) Eyes Eyes: Denies blurry vision ENT ENT ED: Denies rhinorrhea or sore throat Cardiovascular Cardiovascular: Denies chest pain or palpitations Respiratory/Chest Respiratory/Chest: Denies cough or dyspnea Gastrointestinal Gastrointestinal: Denies abdominal pain or nausea Genitourinary Genitourinary ED: Denies dysuria or hematuria Musculoskeletal Musculoskeletal: Reports other Details: Left ankle pain, right knee pain, right hip pain Neurologic Neurologic: Denies headache(s) or weakness Psychiatric Psychiatric: Denies anxiety or depression EXAM Physical Exam Const Vital Signs: 01/02/22 16:42 01/02/22 16:50 Temperature 97.8 F Temperature Source Oral Pulse Rate 92 Respiratory Rate 24 H Respiratory Effort Normal Non-Labored Respiratory Depth Normal Respiratory Pattern Normal Blood Pressure 117/75 Blood Pressure Mean 89 Pulse Ox 94 100 Oxygen Delivery Method Room Air Positive well nourished General Appearance ED: NAD HEENT normocephalic and atraumatic Chest Wall inspection of chest normal Cardio regular rate and regular rhythm Extremity Extremity Narrative: Tenderness palpation of the right knee. No obvious deformity or effusion. Extensor mechanism intact of the right knee Mild tenderness palpation of her right hip. There is pain at the lateral aspect of the left foot. The bilateral feet are neurovascular intact with brisk cap refill to all 5 toes. DP/PT +24 and symmetric. Dialysis port is noted in the right inguinal region. All compartments are soft in the right leg and calf. Neuro oriented x3 Sensorium / Orientation: alert Psych mental status grossly normal MDM MDM MDM Narrative Medical decision making narrative: 41-year-old male presenting for evaluation of right hip, right knee, left foot pain. Patient had a mechanical fall yesterday. He states that his leg was asleep on the left when he stood up out of the car and fell to his knees. He was able to ambulate after this. He no longer has numbness in the left leg. He went to dialysis today and was able to complete this. He complains of continuing pain in the right knee and hip region. He states he did directly injure the right knee. Extensor mechanism is intact. There is no obvious effusion. The compartments on the right leg are soft. No hematomas noted. X-rays of the right hip and right pelvis on my interpretation show no acute fracture or subluxation. There is no other acute abnormality seen. The radiologist does agree. X-rays of the left foot on my interpretation show no acute fracture or subluxation. Patient was given [place] for pain in the ER while awaiting imaging. Since his images are ultimately negative I do not believe he needs narcotic pain medication for home. He is counseled to use ice and Tylenol at home. He will follow-up with his PCP to assure resolution. Impression: 1. Mechanical fall 2. Right hip strain 3. Right knee contusion 4. Left ankle contusion Radiography Diagnostic Testing: Clinical Impression(s) from Imaging Studies Hip/Pelvis X-Ray 01/02/22 16:55 IMPRESSION: No acute fracture is identified. Widening of the pubic symphysis is nonspecific and unchanged from prior. Electronically Signed: Sourav Elizabeth MD at 17:39 EDT , Knee X-Ray 01/02/22 16:55 IMPRESSION: Intact knee. Mild diffuse degenerative changes greater than expected for patient age the. Electronically Signed: Sourav Elizabeth MD at 17:35 EDT , Foot X-Ray 01/02/22 17:10 IMPRESSION: Normal x-ray examination of the foot. Electronically Signed: Sourav Elizabeth MD at 17:32 EDT , Discharge Plan Triage Chief Complaint: Fall ED Provider: Greg Lorenzo Dx/Rx/DC Orders Instructions: ED Contusion, Lower Extremity, ED Fall Prevention Prescriptions: No Action aspirin [Adult Aspirin Regimen] 81 mg tablet,delayed release (DR/EC) 81 mg PO DAILY RF: 0 polyethylene glycol 3350 17 gram/dose powder 17 g PO BID PRNRF: 0 midodrine 10 mg tablet 10 mg PO TID RF: 0 trazodone 50 mg tablet 50 mg PO QHS RF: 0 brimonidine 1 DROP bottle 1 drp LEFT EYE TID Qty: 1 RF: 0 warfarin 2 mg Tablet 2 mg PO TU RF: 0 warfarin 2 mg tablet 4 mg PO SUMOWETHFRSA RF: 0 amoxicillin-pot clavulanate [amoxicillin-pot clavulanate] 875 MG tablet 875 mg PO Q12H Qty: 20 RF: 0 oxycodone-acetaminophen [Percocet] 5-325 mg tablet 1 tab PO Q6H PRN (Reason: pain) 3 Days Qty: 12 RF: 0 (DME) BP monitor large cuff See Rx Instructions .Route .MEDSUPPLY Qty: 1 RF: 0 echinacea 380 mg capsule 380 mg PO DAILY RF: 0 Primary Care Provider: Care Physician,No Primary Referrals: Care Physician,No Primary [Primary Care Provider] -
--- NOTE | 2022-01-02 16:55 | RAD_ITS ---
STUDY: X-RAY - PELVIS AND RIGHT HIP REASON FOR EXAM: Male, 41 years old. Pain TECHNIQUE: 3 views of the pelvis and hip. COMPARISON: 02/20/2021 FINDINGS: Large stool burden. Calcified material in the right groin is poorly characterized but unchanged from prior. Vascular stent material is seen in right leg. Osseous structures are intact. Bilateral hip joints are unremarkable. RAD/HIP, UNI W/ Pelvis 2-3 Views IMPRESSION: No acute fracture is identified. Widening of the pubic symphysis is nonspecific and unchanged from prior. Electronically Signed: Sourav Elizabeth MD at 17:39 EDT ,
--- NOTE | 2022-01-02 16:55 | RAD_ITS ---
STUDY: X-RAY - RIGHT KNEE REASON FOR EXAM: Male, 41 years old. Pain TECHNIQUE: 2 view(s) of the knee. COMPARISON: None. FINDINGS: Normal visualized distal femur. Normal visualized proximal tibia and fibula. Normal proximal tibiofibular articulation. There is mild degenerative arthrosis of the medial femorotibial compartment. There is mild degenerative arthrosis of the lateral femorotibial compartment. Normal patellofemoral articulation. The soft tissue structures are unremarkable. RAD/Knee 1 or 2 Views IMPRESSION: Intact knee. Mild diffuse degenerative changes greater than expected for patient age the. Electronically Signed: Sourav Elizabeth MD at 17:35 EDT ,
--- NOTE | 2022-01-02 17:10 | RAD_ITS ---
STUDY: X-RAY - LEFT FOOT CLINICAL: Male, 41 years old. Pain TECHNIQUE: 3 view(s) of the foot. COMPARISON: None. FINDINGS: Normal talus, calcaneus, and tarsal bones. Normal visualized subtalar, talonavicular, calcaneocuboid, tarsal and tarsometatarsal articulations. Normal metatarsi. Normal metatarsophalangeal joint of the great toe. Normal tibial and fibular sesamoid bones. Normal interphalangeal joint of the great toe. Normal phalanges of the great toe. Normal second through fifth metatarsophalangeal joints. Normal interphalangeal joints and phalanges of the lesser toes. The soft tissue structures are unremarkable. RAD/Foot min 3 Views IMPRESSION: Normal x-ray examination of the foot. Electronically Signed: Sourav Elizabeth MD at 17:32 EDT ,
[2022-01-02] MEDS: HYDROcodone Bitartrate/Apap 5/325 Tablet PO (17:30)
[2022-01-02 19:01] VITALS: BP 151/69; PULSE 72; RESP 16; O2SAT 95
== END 2022-01-02 19:02 | disposition home or self-care (01) ==
PROVIDERS: Emergency Provider Student in an Organized Health Care Education/Training Program; Visit Provider Student in an Organized Health Care Education/Training Program
DX: S73.101A Unspecified sprain of right hip, initial encounter (principal); Z99.2 Dependence on renal dialysis; N18.6 End stage renal disease; S80.01XA Contusion of right knee, initial encounter; S90.02XA Contusion of left ankle, initial encounter; F12.90 Cannabis use, unspecified, uncomplicated; I25.2 Old myocardial infarction; G47.33 Obstructive sleep apnea (adult) (pediatric); Z86.16 Personal history of COVID-19; W19.XXXA Unspecified fall, initial encounter
CPT/HCPCS: 73502; 73560; 73630; 99284

== ENCOUNTER 2022-01-15 09:41 | Outpatient (RCR) | payer MEDICARE, MEDICAID, SELFPAY ==
[2022-01-10 16:48] LABS: International Normalized Ratio 2.5; Prothrombin Time (Protime)PT. 26.3 SECONDS (11.7-14.9)
[2022-01-15 10:52] LABS: International Normalized Ratio 2.7
== END 2022-01-15 18:00 | disposition home or self-care (01) ==
LOC: LAB 09:41
PROVIDERS: Referring Provider Internal Medicine Cardiovascular Disease; Visit Provider Internal Medicine Cardiovascular Disease
DX: I48.0 Paroxysmal atrial fibrillation (principal); I48.92 Unspecified atrial flutter; Z79.01 Long term (current) use of 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s
CPT/HCPCS: 36415; 85610

== ENCOUNTER 2022-01-25 12:02 | Emergency (ER) | payer MEDICARE, MEDICAID, SELFPAY ==
[2022-01-25 12:03] VITALS: BP 113/86; PULSE 96; RESP 18; TEMP 36.6; O2SAT 96; BMI 36.8
--- NOTE | 2022-01-25 12:19 | EDS_ITS ---
HPI History of Present Illness Chief Complaint: Back Informant: patient Narrative Narrative: Patient was sent here from dialysis today because they were having trouble getting his right proximal thigh AV fistula to stop bleeding. It was wrapped, and the bleeding is stopped now. The patient complains of right shoulder pain that he has had off and on for months but worse for the past 3 days without any obvious injury. He can remember flying recently, and when traveling to the airport he was wearing his bag over that shoulder, but he did not have any other injury that he knows of. The pain is anterior, worse than it has ever been before. Worse with lying on it, worse with lifting it. [id number]. He also complains of pain across his lower back for the past month or so and he states it is severe. Worse with movement better with resting, not taking any medications for it. He states it is at the level of where he has had chronic wounds for 6 months or more, he states he is still on an antibiotic for 1 of those wounds, Augmentin. He does not provide a lot of detail with regards to his course in the past 6 months regarding these wounds. He has had no drainage from them recently. 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) Central retinal artery occlusion of left eye (10/09/20) Chronic kidney disease-mineral and bone disorder Chronic pelvic pain in male Chronic ulcer of back COVID-19 virus detected (10/02/21) Daily headache Dental caries Dialysis AV fistula malfunction Dialysis patient ESRD on hemodialysis Essential (primary) hypertension Expressive aphasia (04/05/20) Hearing loss Hematuria History of bacterial endocarditis History of blood clots History of non-ST elevation myocardial infarction (NSTEMI) (11/08/19) History of pulmonary embolus (PE) History of venous thromboembolism 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 due to renal insufficiency Hypotension of hemodialysis 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 prison current use of 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 Mechanical complication of arteriovenous fistula surgically created Medication side effects Mitral valve annular calcification Morbidly obese Non compliance w medication regimen Non-healing non-surgical wound Nonrheumatic mitral valve stenosis with insufficiency Obstructive sleep apnea Pain of right lower extremity Paroxysmal atrial fibrillation (06/10/20) Paroxysmal atrial flutter 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) Pelvic mass Postoperative complete heart block (08/21/21) Sepsis Thrombosis of kidney dialysis arteriovenous graft Unspecified symptoms and signs involving cognitive functions and awareness (04/05/20) Home Medications brimonidine 1 drp LEFT EYE TID #1 bottle 10/09/20 [Rx Last Taken 06/03/21] BP monitor #1 ea 07/17/21 [Rx Last Taken Unknown] echinacea 380 mg capsule 380 mg PO DAILY 10/08/21 [History Last Taken Unknown] aspirin 81 mg tablet,delayed release 81 mg PO DAILY 10/29/21 [History Last Taken Unknown] midodrine 10 mg tablet 10 mg PO TID tab 10/29/21 [History Last Taken Unknown] polyethylene glycol 3350 17 gram/dose oral powder 17 g PO BID PRN g 10/29/21 [History Last Taken Unknown] trazodone 50 mg tablet 50 mg PO QHS tab 10/29/21 [History Last Taken Unknown] amoxicillin-pot clavulanate 875 mg PO Q12H #20 tablet 11/12/21 [Rx Last Taken Unknown] warfarin 2 mg PO TU 11/12/21 [History Last Taken Unknown] warfarin 4 mg PO SUMOWETHFRSA 11/12/21 [History Last Taken Unknown] oxycodone-acetaminophen [Percocet] 1 tab PO Q6H PRN 3 Days #12 tab 12/29/21 [Rx Last Taken Unknown] tizanidine [Zanaflex] 4 mg PO QHS PRN #10 tab 01/02/22 [Rx Last Taken Unknown] oxycodone-acetaminophen 1 tab PO Q4H PRN 3 Days #18 tablet 01/25/22 [Rx Last Taken Unknown] Allergy/AdvReac Type Severity Reaction Status Date / Time gabapentin Allergy Other Verified 01/02/22 16:41 Family History Other Adopted Surgical History History of angioplasty of peripheral vessel (08/28/21) History of cardioversion (12/02/18) history of cather replacement History of herniorrhaphy History of left heart catheterization (09/17/18) History of mitral valve replacement with bioprosthetic valve (08/21/21) History of repair of congenital cleft palate History of right and left heart catheterization (08/16/21) History of tooth extraction, class IV edentulism (09/11/21) Hx of mitral valve replacement Mechanical complication of dialysis catheter Status post creation of arteriovenous fistula Social History household members: none Smoking Status: Never smoker alcohol intake: never substance use type: marijuana what type of physical activity do you participate in: none ROS ROS ED Constitutional Constitutional ED: Denies chills or fever(s) Eyes Eyes: Denies change in vision or diplopia ENT ENT ED: Denies rhinorrhea or sore throat Cardiovascular Cardiovascular: Denies chest pain or palpitations Respiratory/Chest Respiratory/Chest: Denies cough or dyspnea Gastrointestinal Gastrointestinal: Denies abdominal pain, diarrhea, nausea or vomiting Genitourinary Genitourinary ED: Denies dysuria or hematuria Musculoskeletal Musculoskeletal: Reports as per HPI, back pain and extremity pain; Denies neck pain Integumentary Reports as per HPI and wounds; Denies abscess or rash Neurologic Neurologic: Denies headache(s), paresthesias or weakness Psychiatric Psychiatric: Denies anxiety or suicidal thoughts EXAM Physical Exam Const Vital Signs: 01/25/22 12:03 01/25/22 14:38 Temperature 97.8 F Temperature Source Oral Pulse Rate 96 92 Respiratory Rate 18 18 Blood Pressure 113/86 H 114/78 Blood Pressure Mean 95 90 Pulse Ox 96 97 Oxygen Delivery Method Room Air Positive well nourished and well developed General Appearance ED: well developed and NAD HEENT Reports moist mucous membranes normocephalic and atraumatic Eyes EOMs intact bilaterally Eyes Narrative: dysconjugate gaze; blind in left eye. Neck full ROM and supple Resp normal respiratory effort and clear to auscultation bilaterally Cardio regular rate, regular rhythm and no murmurs GI non-tender and non-distended Auscultation: normoactive bowel sounds Palpation: soft Back/Spine no CVA tenderness Back/Spine Narrative: scabbed wounds paraspinal upper lumbar bilat. NO erythema or abscess or any openings or d/c. Very tender around wound on the left, which is very benign-appearing. NO purpura/color change. no other rash. Mildly tender midling at same level, nontender around right wound. Lumbar Spine / Lower Back: pain with ROM Extremity normal to inspection Extremity Narrative: limited ROM L shoulder due to pain. Not abnormally hot or red. Pos Speeds test, Pos Mazariegos, Pos Yergason. tender anteriorly. no subacromial tend. no deformities. excellent ROM elbow and distal. able to supinate/pronate. 2+/4 pulse radial. otherwise, good ROM other 3 ext's. Good thrill right thigh AVF. General Extremety ED: Yes tenderness; Negative for edema or pulses abnormal General Extremity: Negative for edema or pulses abnormal Neuro oriented x3, CN's II-XII intact bilaterally and no sensory deficits noted Sensorium / Orientation: awake and alert Motor Exam: strength 5/5 throughout Skin no rashes or lesions noted MDM MDM MDM Narrative Medical decision making narrative: His wounds on his back look excellent. They are scabbed, there are no areas of opening, and no signs of infection, localized swelling, or other acute abnormality they appear to have healed and have scabs. He is very tender around one of them, there is no fluctuance or anything abnormal that is palpable around this area, but he jumps in pain. He is also tender in midline but less so. Therefore obtained x-rays, 3 view x-ray series of the lumbosacral spine is negative for any acute. There is no palpable hematoma here. With regards to his left shoulder, given the area where he is hurting and his exam it is most consistent with bicipital tendinopathy, I performed some x-rays here as well, 3 view x-ray series of the left shoulder show what appears to be a large effusion. No calcific tendinitis seen, but there is a bone fragment near the glenoid. As I discussed with him I do not have a quick fix for either 1 of these problems because it is probably a hemarthrosis. I did obtain a CT to get more information, it is consistent with an old stable glenoid fracture and a hemarthrosis; I did discuss with the radiologist concerning this. I did check his INR, I am not able to definitively rule out the possibility of a septic arthritis in his left shoulder but he would be more likely to have fevers and a leukocytosis, both of which he does not have. Certainly, attempting a arthrocentesis is not recommended since he is has a therapeutic INR on warfarin, given the likelihood of causing increased bleeding and pain. He is able to do short arc range of motion, and touch the opposite shoulder, making septic arthritis much less likely. He has not put a heating pad or anything similar to this area, I recommend avoiding that and using ice. He is given analgesics for pain here, I will give him a sling, and he states he was already referred to a shoulder specialist and he cannot get in until more than a month away from now. He was given information for the orthopedic doctors locally for another option. Lab Data Labs: Laboratory Results - last 24 hr 01/25/22 01/25/22 01/25/22 13:10 13:10 13:10 WBC 7.1 RBC 4.31 L Hgb 13.1 Hct 40.2 MCV 93.3 MCH 30.4 MCHC 32.6 RDW Std Deviation 57.8 H RDW Coeff of Lance 16.8 H Plt Count 189 MPV 11.3 Immature Gran % (Auto) 0.300 Neut % (Auto) 67.7 Lymph % (Auto) 17.6 L Ballard % (Auto) 12.4 H Eos % (Auto) 1.6 Baso % (Auto) 0.4 Absolute Neuts (auto) 4.8 Absolute Lymphs (auto) 1.25 Nucleated RBC % 0 PT 31.9 H INR 3.1 Sodium 136 Potassium 4.7 Chloride 94 L Carbon Dioxide 33.0 H Anion Gap 9 BUN 37 H Creatinine 7.90 H* Estim Creat Clear Calc 12.96 Est GFR (MDRD) Af Amer 10 L Est GFR (MDRD) Non-Af 8 L BUN/Creatinine Ratio 4.7 L Glucose 79 Calcium 9.6 Radiography Diagnostic Testing: Clinical Impression(s) from Imaging Studies Lumbar Spine X-Ray 01/25/22 12:30 IMPRESSION: Degenerative changes of the spine, as detailed above. Stable appearance of the spinous process of the L4 vertebrae. Electronically Signed: Ed Vega MD at 13:07 EDT , Shoulder X-Ray 01/25/22 12:30 IMPRESSION: Deformity of the left humeral head with a soft tissue density in the region of the shoulder joint suggestive of either effusion or synovial hypertrophy. Stable nonhealed fracture of the glenoid. Electronically Signed: Ed Vega MD at 13:10 EDT , Upper Extremity CT 01/25/22 13:42 IMPRESSION: Soft tissue prominence in the left shoulder joint suggestive of a large effusion versus synovial hypertrophy. Nonhealed fracture of the glenoid fossa. Multiple collaterals are seen in the anterior and posterior soft tissues of the thorax. 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, Warfarin-induced coagulopathy Instructions: ED Sling Prescriptions: New oxycodone-acetaminophen [oxycodone-acetaminophen] 1 TABLET tablet 1 tab PO Q4H PRN (Reason: Pain) 3 Days Qty: 18 RF: 0 No Action aspirin [Adult Aspirin Regimen] 81 mg tablet,delayed release (DR/EC) 81 mg PO DAILY RF: 0 polyethylene glycol 3350 17 gram/dose powder 17 g PO BID PRN (Reason: Constipation) RF: 0 midodrine 10 mg tablet 10 mg PO TID RF: 0 trazodone 50 mg tablet 50 mg PO QHS RF: 0 brimonidine 1 DROP bottle 1 drp LEFT EYE TID Qty: 1 RF: 0 warfarin 2 mg Tablet 2 mg PO TU RF: 0 warfarin 2 mg tablet 4 mg PO SUMOWETHFRSA RF: 0 amoxicillin-pot clavulanate [amoxicillin-pot clavulanate] 875 MG tablet 875 mg PO Q12H Qty: 20 RF: 0 oxycodone-acetaminophen [Percocet] 5-325 mg tablet 1 tab PO Q6H PRN (Reason: pain) 3 Days Qty: 12 RF: 0 tizanidine [Zanaflex] 4 mg tablet 4 mg PO QHS PRN (Reason: muscle spasticity) Qty: 10 RF: 0 (DME) BP monitor large cuff See Rx Instructions .Route .MEDSUPPLY Qty: 1 RF: 0 echinacea 380 mg capsule 380 mg PO DAILY RF: 0 Primary Care Provider: Care Physician,No Primary Referrals: Sean Rizo, [STAFF PHYSICIAN] - As soon as possible (as another option with regards to orthopaedics; you will still want to see your shoulder specialist as scheduled, you may call them to see if you can get a sooner appointment as there are often cancellations) Care Physician,No Primary [Primary Care Provider] - Activity Restrictions/Additional Instructions: Use ice/cold compresses to left shoulder, no heat. Disposition Disposition: Home, Self Care
--- NOTE | 2022-01-25 12:30 | RAD_ITS ---
STUDY: X-RAY - LUMBAR SPINE REASON FOR EXAM: Male, 41 years old. Back pain. TECHNIQUE: AP and lateral view(s) of the lumbar spine were obtained. COMPARISON: Comparison is made with prior study dated 03/24/2021. FINDINGS: Normal lumbar lordosis. There is a levoscoliosis of the lumbar spine. There is a normal alignment of the vertebrae. Normal vertebral bodies and endplates. Marked degree of disc space narrowing and subchondral sclerosis at the L3-L4 level. There is a heterogeneous sclerotic appearance of the spinous process of the L4 vertebrae with the cystic changes. This may be related to the patient''s chronic renal failure. This is unchanged. The soft tissue structures are unremarkable. RAD/Lumbar Spine 2 or 3 Views IMPRESSION: Degenerative changes of the spine, as detailed above. Stable appearance of the spinous process of the L4 vertebrae. Electronically Signed: Ed Vega MD at 13:07 EDT ,
--- NOTE | 2022-01-25 12:30 | RAD_ITS ---
STUDY: X-RAY - LEFT SHOULDER REASON FOR EXAM: Male, 41 years old. Left shoulder pain. TECHNIQUE: 4 view(s) of the shoulder. COMPARISON: Comparison is made with prior study dated 11/25/2018. FINDINGS: There is deformity of the humeral head. Normal acromioclavicular joint. Normal acromion. All nonunion of the left glenoid fracture. Soft tissue swelling and possible joint effusion. Normal visualized pulmonary apex. RAD/Shoulder min 2 Views IMPRESSION: Deformity of the left humeral head with a soft tissue density in the region of the shoulder joint suggestive of either effusion or synovial hypertrophy. Stable nonhealed fracture of the glenoid. Electronically Signed: Ed Vega MD at 13:10 EDT ,
[2022-01-25] MEDS: morphine 10 MG/ML Syringe 4 MG SC ×2 (12:32→14:10)
[2022-01-25 13:24] LABS: International Normalized Ratio 3.1; Prothrombin Time (Protime)PT. 31.9 SECONDS (11.7-14.9)
--- NOTE | 2022-01-25 13:42 | CT_ITS ---
STUDY: CT LEFT SHOULDER REASON FOR EXAM: Male, 41 years old. Shoulder pain, abn XR RADIATION DOSAGE (If Supplied By Facility): CTDIvol = ( 35.66 ) mGy, DLP = ( 750.82 ) mGycm TECHNIQUE: The patient was scanned in a multi detector CT scanner. High resolution transaxial imaging was performed without the administration of intravenous contrast material. Sagittal and coronal images were reconstructed. Individualized dose optimization techniques were used for this CT. COMPARISON: Comparison is made with prior radiographs of the left shoulder done earlier today. FINDINGS: There is evidence of diffuse soft tissue changes within the left glenohumeral joint suggestive of either synovial hypertrophy or large joint effusion. There is evidence of a nonhealed fracture of the left glenoid cavity.. Deformity of the humeral head. This is unchanged from prior examinations. Normal coracoid process. Normal visualized lateral clavicle. Normal acromioclavicular articulation. There is a Type II morphology (curved), with a neutral orientation. There is evidence of venous collaterals in the anterior and posterior chest wall. This most likely secondary to fistula in the left forearm. Multiple small lymph nodes are also seen in the left axillary region. Coronary artery calcification. CT/Extremity Upper without Contra IMPRESSION: Soft tissue prominence in the left shoulder joint suggestive of a large effusion versus synovial hypertrophy. Nonhealed fracture of the glenoid fossa. Multiple collaterals are seen in the anterior and posterior soft tissues of the thorax. Electronically Signed: Ed Vega MD at 14:51 EDT ,
[2022-01-25 13:53] LABS: Absolute Lymphocyte Count 1.25 X10^3/uL (0.83-4.51); Absolute Neutrophil Count 4.8 X10^3/uL (2.0-7.7); Basophil# 0.03 X10^3/uL; Basophil% 0.4 % (0-1); Eosinophil# 0.11 X10^3/uL; Eosinophils% 1.6 % (0-5); Hematocrit 40.2 % (40-54); Hemoglobin 13.1 g/dL (13.0-16.5); Lymphocyte # 1.25 X10^3/ul (0.83-4.51); Lymphocyte % 17.6 % (19-41); Mean Corp Hgb Conc 32.6 g/dL (32-36); Mean Corpuscular Hgb 30.4 pg (27.0-32.0); Mean Corpuscular Volume 93.3 fL (80-94); Mean Platelet Vol. 11.3 fl (6.2-12.0); Monocyte# 0.88 X10^3/uL; Monocyte% 12.4 % (0-10); NRBC Flagged by Analyzer 0 % (0-5); Neutrophil % 67.7 % (47-70); Platelet Count 189 K/mm3 (150-450); RBC Distribution Width CV 16.8 % (11.6-14.6); RBC Distribution Width SD 57.8 fl (35.1-43.9); Red Blood Count 4.31 M/mm3 (4.6-6.2); White Blood Count 7.1 K/mm3 (4.4-11.0)
[2022-01-25 14:13] LABS: Anion Gap 9 (5-15); BUN 37 mg/dL (7-18); BUN/Creat Ratio 4.7 RATIO (10-20); Calcium,Total 9.6 mg/dL (8.5-10.1); Chloride 94 mmol/L (98-107); EST Glomerular Filtration Rate 8 mL/min (>60); Est Glom Filt Rate - Afr Amer 10 mL/min (>60); Estimated Creatinine Clearance 12.96 ml/min; Glucose 79 mg/dL (74-106); Potassium 4.7 mmol/L (3.5-5.1); Sodium Level 136 mmol/L (136-145)
[2022-01-25 14:38] VITALS: BP 114/78; PULSE 92; RESP 18; O2SAT 97
[2022-01-25 15:51] VITALS: BP 112/79; PULSE 97; RESP 16; O2SAT 97
== END 2022-01-25 15:52 | disposition home or self-care (01) ==
PROVIDERS: Emergency Provider Emergency Medicine; Visit Provider Emergency Medicine
DX: M25.012 Hemarthrosis, left shoulder (principal); T82.838A Hemorrhage due to vascular prosthetic devices, implants and grafts, initial encounter; Z99.2 Dependence on renal dialysis; I12.0 Hypertensive chronic kidney disease with stage 5 chronic kidney disease or end stage renal disease; N18.6 End stage renal disease; I48.0 Paroxysmal atrial fibrillation; D68.32 Hemorrhagic disorder due to extrinsic circulating 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s; M54.50 Low back pain, unspecified; S42.142A Displaced fracture of glenoid cavity of scapula, left shoulder, initial encounter for closed fracture; F12.90 Cannabis use, unspecified, uncomplicated; I25.2 Old myocardial infarction; G47.33 Obstructive sleep apnea (adult) (pediatric); Z79.01 Long term (current) use of 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s; Z79.82 Long term (current) use of aspirin; Z79.899 Other long term (current) drug therapy; Z86.16 Personal history of COVID-19; Z86.711 Personal history of pulmonary embolism; X58.XXXA Exposure to other specified factors, initial encounter
CPT/HCPCS: 72100; 73030; 73200; 80048; 85025; 85610; 96374; 96376; 99284; A4216

== ENCOUNTER 2022-02-12 15:00 | Outpatient (RCR) | payer MEDICARE, MEDICAID, SELFPAY | END 2022-02-12 18:00 | disposition home or self-care (01) | LOC: LAB 15:00 | PROVIDERS: Referring Provider Internal Medicine Cardiovascular Disease; Visit Provider Internal Medicine Cardiovascular Disease | DX: I48.0 Paroxysmal atrial fibrillation (principal); I48.92 Unspecified atrial flutter; Z79.01 Long term (current) use of 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s ==

== ENCOUNTER 2022-02-18 13:36 | Emergency (ER) | payer MEDICARE, MEDICAID, SELFPAY ==
[2022-02-18 13:37] VITALS: BP 122/77; PULSE 76; RESP 18; TEMP 36.2; O2SAT 94; BMI 34.0
--- NOTE | 2022-02-18 14:09 | EX.ED.DYSGE1 ---
HPI History of Present Illness Chief Complaint: Other, Pain/Inj Informant: patient Onset/Context/Timing Onset: Today Context: Sudden Onset Timing: Continuous Quality: Bleeding Location: AV fistula right thigh Worsened by: Nothing Relieved by: Nothing Narrative Narrative: Patient presents with bleeding from his dialysis site. Patient had dialysis today. Patient states the bleeding persisted after they remove the needles. Patient states it is still bleeding and that he was rushed to the emergency department for this. Patient states that since he got here he has developed some epistaxis from his right nares. Patient denies any fevers or chills. Patient denies any paresthesias. Patient is on Coumadin for recent mitral valve replacement. 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) Central retinal artery occlusion of left eye (10/09/20) Chronic kidney disease-mineral and bone disorder Chronic pelvic pain in male Chronic ulcer of back COVID-19 virus detected (10/02/21) Daily headache Dental caries Dialysis AV fistula malfunction Dialysis patient ESRD on hemodialysis Essential (primary) hypertension Expressive aphasia (04/05/20) Hearing loss Hematuria History of bacterial endocarditis History of blood clots History of non-ST elevation myocardial infarction (NSTEMI) (11/08/19) History of pulmonary embolus (PE) History of venous thromboembolism 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 due to renal insufficiency Hypotension of hemodialysis 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 Mechanical complication of arteriovenous fistula surgically created Medication side effects Mitral valve annular calcification Morbidly obese Non compliance w medication regimen Non-healing non-surgical wound Nonrheumatic mitral valve stenosis with insufficiency Obstructive sleep apnea Pain of right lower extremity Paroxysmal atrial fibrillation (06/10/20) Paroxysmal atrial flutter 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) Pelvic mass Postoperative complete heart block (08/21/21) Sepsis Thrombosis of kidney dialysis arteriovenous graft Unspecified symptoms and signs involving cognitive functions and awareness (04/05/20) Home Medications brimonidine 1 drp LEFT EYE TID #1 bottle 10/09/20 [Rx Last Taken 06/03/21] BP monitor #1 ea 07/17/21 [Rx Last Taken Unknown] echinacea 380 mg capsule 380 mg PO DAILY 10/08/21 [History Last Taken Unknown] aspirin 81 mg tablet,delayed release 81 mg PO DAILY 10/29/21 [History Last Taken Unknown] midodrine 10 mg tablet 10 mg PO TID tab 10/29/21 [History Last Taken Unknown] polyethylene glycol 3350 17 gram/dose oral powder 17 g PO BID PRN g 10/29/21 [History Last Taken Unknown] trazodone 50 mg tablet 50 mg PO QHS tab 10/29/21 [History Last Taken Unknown] amoxicillin-pot clavulanate 875 mg PO Q12H #20 tablet 11/12/21 [Rx Last Taken Unknown] warfarin 2 mg PO TU 11/12/21 [History Last Taken Unknown] warfarin 4 mg PO SUMOWETHFRSA 11/12/21 [History Last Taken Unknown] oxycodone-acetaminophen [Percocet] 1 tab PO Q6H PRN 3 Days #12 tab 12/29/21 [Rx Last Taken Unknown] tizanidine [Zanaflex] 4 mg PO QHS PRN #10 tab 01/02/22 [Rx Last Taken Unknown] oxycodone-acetaminophen 1 tab PO Q4H PRN 3 Days #18 tablet 01/25/22 [Rx Last Taken Unknown] Allergy/AdvReac Type Severity Reaction Status Date / Time gabapentin Allergy Other Verified 01/02/22 16:41 Family History Other Adopted Surgical History History of angioplasty of peripheral vessel (08/28/21) History of cardioversion (12/02/18) history of cather replacement History of herniorrhaphy History of left heart catheterization (09/17/18) History of mitral valve replacement with bioprosthetic valve (08/21/21) History of repair of congenital cleft palate History of right and left heart catheterization (08/16/21) History of tooth extraction, class IV edentulism (09/11/21) Hx of mitral valve replacement Mechanical complication of dialysis catheter Status post creation of arteriovenous fistula Social History household members: none Smoking Status: Never smoker alcohol intake: never substance use type: marijuana what type of physical activity do you participate in: none ROS ROS ED Constitutional Constitutional ED: Denies chills or fever(s) Eyes Eyes: Denies blurry vision or change in vision ENT ENT ED: Denies rhinorrhea or sore throat Cardiovascular Cardiovascular: Denies chest pain or palpitations Respiratory/Chest Respiratory/Chest: Denies cough or dyspnea Gastrointestinal Gastrointestinal: Denies nausea or vomiting Genitourinary Genitourinary ED: Denies dysuria or hematuria Musculoskeletal Musculoskeletal: Reports back pain; Denies neck pain Integumentary Denies abscess or rash Neurologic Neurologic: Denies headache(s) or weakness Hematologic/Lymphatic Hematologic/Lymphatic: Reports easy bleeding Allergic/Immunologic Allergic/Immunologic ED: Denies mouth swelling or urticaria EXAM Physical Exam Const Vital Signs: 02/18/22 13:37 02/18/22 15:58 02/18/22 17:06 Temperature 97.2 F L Temperature Source Temporal Pulse Rate 76 90 88 Respiratory Rate 18 16 16 Blood Pressure 122/77 H 99/57 L 97/57 L Blood Pressure Mean 92 71 70 Pulse Ox 94 97 98 Oxygen Delivery Method Room Air Room Air Room Air Positive well nourished and well developed General Appearance ED: well developed HEENT Reports moist mucous membranes HEENT Narrative: There is some mild epistaxis from the right nares. There is no bleeding from the left nares. Neck supple and no JVD Extremity normal to inspection Extremity Narrative: There is no bleeding at the fistula site at this time. There is a palpable thrill noted. There is good range of motion. There are no motor or sensory deficits noted. General Extremety ED: Negative for edema or tenderness General Extremity: Negative for edema Neuro oriented x3, CN's II-XII intact bilaterally and no sensory deficits noted Sensorium / Orientation: alert Motor Exam: strength 5/5 throughout Psych mental status grossly normal Skin no rashes or lesions noted MDM MDM MDM Narrative Medical decision making narrative: CBC was obtained. Hemoglobin was 12.7 and hematocrit was 40.1. This is consistent with prior results. PT with INR and PTT were obtained. Pro time was 33.6. INR was 3.3. PTT was 46.5. Patient was advised of his findings. Patient states his epistaxis has resolved here in the emergency department. I do not feel need for packing at this time. Patient was instructed continue his Coumadin as prescribed. Patient was instructed to follow-up with his dialysis in 2 days as scheduled. Patient was instructed to follow-up with his primary care physician in 3 to 5 days. Patient understood and was agreeable with the plan. All questions were answered. Lab Data Labs: Laboratory Results - last 24 hr 02/18/22 02/18/22 14:55 14:55 WBC 6.4 RBC 4.30 L Hgb 12.7 L Hct 40.1 MCV 93.3 MCH 29.5 MCHC 31.7 L RDW Std Deviation 54.4 H RDW Coeff of Lance 15.9 H Plt Count 268 MPV 9.9 Immature Gran % (Auto) 0.500 Neut % (Auto) 65.7 Lymph % (Auto) 17.5 L [place] % (Auto) 13.5 H Eos % (Auto) 2.0 Baso % (Auto) 0.8 Absolute Neuts (auto) 4.2 Absolute Lymphs (auto) 1.13 Nucleated RBC % 0 PT 33.6 H INR 3.3 APTT 46.5 H Discharge Plan Triage Chief Complaint: Other, Pain/Inj ED Provider: Piero Marques Dx/Rx/DC Orders Clinical Impression: Right thigh hemodialysis AV fistula bleed, Mild epistaxis Instructions: ED Hemodialysis Access Bleeding Prescriptions: No Action aspirin [Adult Aspirin Regimen] 81 mg tablet,delayed release (DR/EC) 81 mg PO DAILY RF: 0 polyethylene glycol 3350 17 gram/dose powder 17 g PO BID PRN (Reason: Constipation) RF: 0 midodrine 10 mg tablet 10 mg PO TID RF: 0 trazodone 50 mg tablet 50 mg PO QHS RF: 0 brimonidine 1 DROP bottle 1 drp LEFT EYE TID Qty: 1 RF: 0 warfarin 2 mg Tablet 2 mg PO TU RF: 0 warfarin 2 mg tablet 4 mg PO SUMOWETHFRSA RF: 0 amoxicillin-pot clavulanate [amoxicillin-pot clavulanate] 875 MG tablet 875 mg PO Q12H Qty: 20 RF: 0 oxycodone-acetaminophen [Percocet] 5-325 mg tablet 1 tab PO Q6H PRN (Reason: pain) 3 Days Qty: 12 RF: 0 tizanidine [Zanaflex] 4 mg tablet 4 mg PO QHS PRN (Reason: muscle spasticity) Qty: 10 RF: 0 oxycodone-acetaminophen [oxycodone-acetaminophen] 1 TABLET tablet 1 tab PO Q4H PRN (Reason: Pain) 3 Days Qty: 18 RF: 0 (DME) BP monitor large cuff See Rx Instructions .Route .MEDSUPPLY Qty: 1 RF: 0 echinacea 380 mg capsule 380 mg PO DAILY RF: 0 Primary Care Provider: Care Physician,No Primary Referrals: Care Physician,No Primary [Primary Care Provider] - 3-5 Days Disposition Disposition: Home, Self Care
--- NOTE | 2022-02-18 14:48 | ED.RN ---
Patient requested blood be drawn from his hands. [employer] student and this RN attempted for bloodwork without success. RN requested patient lay back so we could try his chest for bloodwork. Pt states I have wounds on my back so I can't like down. Rn states that is fine. Patient on his phone. Rn asked if patient could take off his shirt so we could attempted again for bloodwork. Patient continues to state he cannot lay on his back. Rn states that is ok. We will make this work. Patient still sitting at bedside during this conversation not removing his shirt for access. Rn states would you like the blood work or not? Patient becomes angry with RN stating I actually want to be here. I don't like your attitude so you can leave. RN and [employer] student left patients room. Diana, Charge nurse notified.
[2022-02-18 15:07] LABS: Absolute Lymphocyte Count 1.13 X10^3/uL (0.83-4.51); Absolute Neutrophil Count 4.2 X10^3/uL (2.0-7.7); Basophil# 0.05 X10^3/uL; Basophil% 0.8 % (0-1); Eosinophil# 0.13 X10^3/uL; Hematocrit 40.1 % (40-54); Hemoglobin 12.7 g/dL (13.0-16.5); Lymphocyte # 1.13 X10^3/ul (0.83-4.51); Lymphocyte % 17.5 % (19-41); Mean Corp Hgb Conc 31.7 g/dL (32-36); Mean Corpuscular Hgb 29.5 pg (27.0-32.0); Mean Corpuscular Volume 93.3 fL (80-94); Mean Platelet Vol. 9.9 fl (6.2-12.0); Monocyte# 0.87 X10^3/uL; Monocyte% 13.5 % (0-10); NRBC Flagged by Analyzer 0 % (0-5); Neutrophil # 4.23 X10^3/uL (2.7-7.7); Neutrophil % 65.7 % (47-70); Platelet Count 268 K/mm3 (150-450); RBC Distribution Width CV 15.9 % (11.6-14.6); RBC Distribution Width SD 54.4 fl (35.1-43.9); White Blood Count 6.4 K/mm3 (4.4-11.0)
[2022-02-18 15:58] VITALS: BP 99/57; PULSE 90; RESP 16; O2SAT 97
[2022-02-18 17:06] VITALS: BP 97/57; PULSE 88; RESP 16; O2SAT 98
[2022-02-18 17:52] LABS: International Normalized Ratio 3.3; Prothrombin Time (Protime)PT. 33.6 SECONDS (11.7-14.9)
[2022-02-18 17:53] LABS: Partial Thromboplast Time 46.5 Seconds (24.1-36.2)
== END 2022-02-18 19:01 | disposition home or self-care (01) ==
PROVIDERS: Emergency Provider Emergency Medicine; Visit Provider Emergency Medicine
DX: T82.838A Hemorrhage due to vascular prosthetic devices, implants and grafts, initial encounter (principal); Z99.2 Dependence on renal dialysis; N18.6 End stage renal disease; I12.0 Hypertensive chronic kidney disease with stage 5 chronic kidney disease or end stage renal disease; I48.0 Paroxysmal atrial fibrillation; I48.92 Unspecified atrial flutter; E66.01 Morbid (severe) obesity due to excess calories; R04.0 Epistaxis; Z95.2 Presence of prosthetic heart valve; Y82.8 Other medical devices associated with adverse incidents; D63.8 Anemia in other chronic diseases classified elsewhere; Z79.01 Long term (current) use of 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s; H54.7 Unspecified visual loss; Z86.16 Personal history of COVID-19; I25.2 Old myocardial infarction; Z86.711 Personal history of pulmonary embolism; M41.9 Scoliosis, unspecified; Z68.34 Body mass index [BMI] 34.0-34.9, adult; Z79.899 Other long term (current) drug therapy; Z79.82 Long term (current) use of aspirin
CPT/HCPCS: 85025; 85610; 85730; 99284

== ENCOUNTER 2022-04-29 23:42 | Emergency (ER) | payer MEDICARE, MEDICAID, SELFPAY ==
[2022-04-29 23:42] VITALS: BP 127/74; PULSE 111; RESP 18; TEMP 36.9; O2SAT 98; BMI 34.0
[2022-04-29 23:47] VITALS: PULSE 111; RESP 14; O2SAT 99
--- NOTE | 2022-04-29 23:54 | EX.ED.DYSGE1 ---
HPI History of Present Illness Chief Complaint: Neuro S/Sx Informant: patient Onset/Context/Timing Onset: Days Context: Sudden Onset Timing: Continuous Current Severity: Moderate Maximum Severity: Moderate Narrative Narrative: 42-year-old male extensive past medical history of a prior stroke causing him some visual change, chronic A. fib, chronic kidney disease which is has dialysis Friday and he did have a full run of dialysis today. He is also had a cardiac valve replaced with a prosthetic valve and is on chronic anticoagulation with Coumadin. States 5 days ago he developed a headache that was sudden onset. Today normally does not get headaches. He denies any head trauma. No injury. He has had some dizziness with it. Denies recent illness. Denies vomiting or diarrhea. Denies fever. Denies shortness of breath or cough. 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) Central retinal artery occlusion of left eye (10/09/20) Chronic kidney disease-mineral and bone disorder Chronic pelvic pain in male Chronic ulcer of back COVID-19 virus detected (10/02/21) Daily headache Dental caries Dialysis AV fistula malfunction Dialysis patient ESRD on hemodialysis Essential (primary) hypertension Expressive aphasia (04/05/20) Hearing loss Hematuria History of bacterial endocarditis History of blood clots History of non-ST elevation myocardial infarction (NSTEMI) (11/08/19) History of pulmonary embolus (PE) History of venous thromboembolism 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 due to renal insufficiency Hypotension of hemodialysis 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 correction current use of 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 Mechanical complication of arteriovenous fistula surgically created Medication side effects Mitral valve annular calcification Morbidly obese Non compliance w medication regimen Non-healing non-surgical wound Nonrheumatic mitral valve stenosis with insufficiency Obstructive sleep apnea Pain of right lower extremity Paroxysmal atrial fibrillation (06/10/20) Paroxysmal atrial flutter 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) Pelvic mass Postoperative complete heart block (08/21/21) Sepsis Thrombosis of kidney dialysis arteriovenous graft Unspecified symptoms and signs involving cognitive functions and awareness (04/05/20) Home Medications brimonidine 0.2 % eye drops 1 drp LEFT EYE TID #1 BOTTLE 10/09/20 [Rx Last Taken 06/03/21] BP monitor #1 ea 07/17/21 [Rx Last Taken Unknown] echinacea 380 mg capsule 380 mg PO DAILY 10/08/21 [History Last Taken Unknown] aspirin 81 mg tablet,delayed release (Adult Aspirin Regimen) 81 mg PO DAILY 10/29/21 [History Last Taken Unknown] midodrine 10 mg tablet 10 mg PO TID 10/29/21 [History Last Taken Unknown] polyethylene glycol 3350 17 gram/dose oral powder 17 g PO BID PRN Constipation 10/29/21 [History Last Taken Unknown] trazodone 50 mg tablet 50 mg PO QHS 10/29/21 [History Last Taken Unknown] amoxicillin 875 mg-potassium clavulanate 125 mg tablet 875 mg PO Q12H #20 TABLETS 11/12/21 [Rx Last Taken Unknown] warfarin 2 mg tablet 2 mg PO TU 11/12/21 [History Last Taken Unknown] warfarin 2 mg tablet 4 mg PO SUMOWETHFRSA 11/12/21 [History Last Taken Unknown] oxycodone-acetaminophen 5 mg-325 mg tablet (Percocet) 1 tab PO Q6H PRN pain 3 days #12 tabs 12/29/21 [Rx Last Taken Unknown] tizanidine 4 mg tablet (Zanaflex) 4 mg PO QHS PRN muscle spasticity #10 tabs 01/02/22 [Rx Last Taken Unknown] oxycodone-acetaminophen 5 mg-325 mg tablet 1 tab PO Q4H PRN Pain 3 days #18 TABLETS 01/25/22 [Rx Last Taken Unknown] warfarin 2 mg tablet 4 mg PO DAILY 04/30/22 [History Last Taken Unknown] Allergy/AdvReac Type Severity Reaction Status Date / Time gabapentin Allergy Other Verified 04/29/22 23:44 Family History Other Adopted Surgical History History of angioplasty of peripheral vessel (08/28/21) History of cardioversion (12/02/18) history of cather replacement History of herniorrhaphy History of left heart catheterization (09/17/18) History of mitral valve replacement with bioprosthetic valve (08/21/21) History of repair of congenital cleft palate History of right and left heart catheterization (08/16/21) History of tooth extraction, class IV edentulism (09/11/21) Hx of mitral valve replacement Mechanical complication of dialysis catheter Status post creation of arteriovenous fistula Social History household members: none Smoking Status: Never smoker alcohol intake: never substance use type: marijuana what type of physical activity do you participate in: none ROS ROS ED ROS Narrative Headache. Denies any recent illness. Review of Systems ROS Unobtainable: Denies due to encephalopathy Constitutional Constitutional ED: Denies chills or fever(s) Eyes Eyes: Denies blurry vision ENT ENT ED: Denies ear pain Cardiovascular Cardiovascular: Denies chest pain Respiratory/Chest Respiratory/Chest: Denies cough or dyspnea Gastrointestinal Gastrointestinal: Denies abdominal pain Genitourinary Genitourinary ED: Denies dysuria or hematuria Musculoskeletal Musculoskeletal: Denies arthralgias Integumentary Denies abscess Neurologic Neurologic: Reports headache(s) Psychiatric Psychiatric: Denies anxiety Hematologic/Lymphatic Hematologic/Lymphatic: Reports anemia; Denies none Allergic/Immunologic Allergic/Immunologic ED: Denies mouth swelling EXAM Physical Exam Narrative Exam Narrative: 42-year-old male lying in bed. Vital signs are stable. He is tachycardic with chronic A. fib. Pulse ox is 98% on room air no hypoxia. H EENT exam give dry reactive light extra motions are intact. No facial trauma. No facial droop. Normal speech. Neck nontender. Lungs clear to auscultation bilaterally. Heart irregularly irregular rate of 111 consistent with A. fib on the monitor. He does have a systolic ejection murmur and a prosthetic valve click. Abdomen soft nontender normal bowel sounds no peritoneal signs. Moving all 4 extremities. 5 out of 5 simplex operator strength bilaterally. Fingertip to nose bilaterally. Dorsi plantarflexion intact. No drift. He is awake and alert answering questions and following commands. Const Vital Signs: 04/29/22 23:42 04/29/22 23:47 04/30/22 00:39 Temperature 98.4 F Temperature Source Temporal Pulse Rate 111 H 111 H 110 H Respiratory Rate 18 14 Blood Pressure 127/74 H 101/57 L Blood Pressure Mean 91 71 Pulse Ox 98 99 97 Oxygen Delivery Method Room Air Room Air Room Air 04/30/22 01:00 Temperature Temperature Source Pulse Rate 102 H Respiratory Rate 22 H Blood Pressure 107/50 L Blood Pressure Mean 69 Pulse Ox 96 Oxygen Delivery Method Room Air Positive well nourished, well developed and obese; Negative for cachectic, contractures or unkempt General Appearance ED: well developed and NAD; Negative for unkempt, cachectic, contractures, cyanotic or diaphoretic Nutritional Appearance: obese; Negative for cachectic HEENT Reports moist mucous membranes Negative for trauma Eyes PERRL and EOMs intact bilaterally General Eye ED: Negative for pale conjunctiva Neck no lymphadenopathy, supple and no JVD General: Negative for tenderness Lymph Lymphatic: Negative for other Chest Wall inspection of chest normal and palpation of chest normal Resp normal respiratory effort and clear to auscultation bilaterally Effort and Inspection: Negative for retractions Auscultation: Negative for rales, rhonchi or wheezes Cardio Negative for regular rate, regular rhythm or no murmurs Rate: tachycardic Rhythm: abnormal rhythm irregularly irregular GI normal to inspection, nondistended, normoactive bowel sounds, non-tender, non-distended and no masses Inspection: Negative for abdominal distention Auscultation: normoactive bowel sounds Palpation: soft; Negative for tender Back/Spine no CVA tenderness General Back: Negative for CVA tenderness Cervical Spine: Negative for cervical spine tenderness Thoracic Spine / Upper Back: Negative for thoracic spinal tenderness Lumbar Spine / Lower Back: Negative for lumbar spinal tenderness Extremity normal to inspection General Extremety ED: Negative for edema or tenderness General Extremity: Negative for edema Neuro oriented x3 Sensorium / Orientation: alert; Negative for orientation impaired, lethargic or stuporous Motor Exam: strength 5/5 throughout Psych mental status grossly normal Appearance: Negative for unkempt Attitude: No agitated Mood & Affect: Negative for depressed or anxious Skin no rashes or lesions noted and no wounds Lesions: No lesion noted Rashes: No rashes noted Trauma: Negative for abrasion Wounds: Negative for wounds noted MDM MDM MDM Narrative Medical decision making narrative: 42-year-old male extensive past medical history including end-stage renal disease on dialysis and chronic A. fib on Coumadin. With a headache. He has an unremarkable neurologic exam at this time. NIH score is 0. He will undergo a CAT scan and screening labs. Patient was treated with IV morphine and Zofran. His headache is resolving but not gone. His neurologic exam remains normal at 2:24 AM. He is comfortable being discharged to home. Lab Data Attestation: I reviewed the patient's lab results. Lab results narrative: CBC unremarkable. Normal white count, hemoglobin and hematocrit and platelets. Electrolytes show a gap of 7 BUN of 26 creatinine 7.3 consistent with end-stage renal disease. Glucose 84. PT and INR are 28 and 2.8. Labs: Laboratory Results - last 24 hr 04/30/22 04/30/22 04/30/22 00:00 00:00 00:00 WBC 6.5 RBC 4.32 L Hgb 13.2 Hct 42.0 MCV 97.2 H MCH 30.6 MCHC 31.4 L RDW Std Deviation 64.1 H RDW Coeff of Lance 18.0 H Plt Count 205 MPV 10.1 Immature Gran % (Auto) 0.200 Neut % (Auto) 61.4 Lymph % (Auto) 17.2 L [place] % (Auto) 18.4 H Eos % (Auto) 2.0 Baso % (Auto) 0.8 Absolute Neuts (auto) 4.0 Absolute Lymphs (auto) 1.12 Nucleated RBC % 0 PT 28.9 H INR 2.8 Sodium 137 Potassium 4.5 Chloride 96 L Carbon Dioxide 34.0 H Anion Gap 7 BUN 26 H Creatinine 7.30 H Estim Creat Clear Calc 13.89 Est GFR (MDRD) Af Amer 11 L Est GFR (MDRD) Non-Af 9 L BUN/Creatinine Ratio 3.6 L Glucose 84 Calcium 8.2 L Radiography Diagnostic Testing: Clinical Impression(s) from Imaging Studies Brain CT 04/30/22 23:53 IMPRESSION: 1. Mild diffuse involutional changes and mild chronic microvascular deep white matter disease. 2. No mass, hemorrhage, or acute territorial infarct. 3. No radiographically significant sinus disease. Electronically Signed: Don Sky MD at 0:39 EDT , Discharge Plan Triage Chief Complaint: Neuro S/Sx ED Provider: Sherman Barr Dx/Rx/DC Orders Clinical Impression: Headache, Chronic anticoagulation, ESRD (end stage renal disease), History of atrial fibrillation Instructions: ED Headache Unspecified Prescriptions: No Action aspirin [Adult Aspirin Regimen] 81 mg tablet,delayed release (DR/EC) 81 mg PO DAILY polyethylene glycol 3350 17 gram/dose powder 17 g PO BID PRN (Reason: Constipation) Label Comments: Take 1 capful by mouth twice daily as needed for constipation. Dissolve dose in 4 - 8 ounces of liquid and take as directed. midodrine 10 mg tablet 10 mg PO TID trazodone 50 mg tablet 50 mg PO QHS brimonidine 1 DROP bottle 1 drp LEFT EYE TID Qty: 1 0RF warfarin 2 mg Tablet 2 mg PO Protocol: Dose Management Condition: Friday Dose/Route: 4 mg Instruction: 2 x 2 mg tablets Condition: Friday Dose/Route: 4 mg Instruction: 2 x 2 mg tablets Condition: Friday Dose/Route: 4 mg Instruction: 2 x 2 mg tablets Condition: Friday Dose/Route: 4 mg Instruction: 2 x 2 mg tablets Condition: Dose/Route: 4 mg Instruction: 2 x 2 mg tablets Condition: Friday Dose/Route: 4 mg Instruction: 2 x 2 mg tablets Condition: Friday Dose/Route: 4 mg Instruction: 2 x 2 mg tablets Protocol Text: Adjustment Start Date: Friday01/15/22 INR Value: 2.7 INR Date: 01/15/22 Recheck Date: 01/22/22 warfarin 2 mg tablet 4 mg PO [facility] Protocol: Dose Management Condition: Friday Dose/Route: 4 mg Instruction: 2 x 2 mg tablets Condition: Friday Dose/Route: 4 mg Instruction: 2 x 2 mg tablets Condition: Friday Dose/Route: 4 mg Instruction: 2 x 2 mg tablets Condition: Friday Dose/Route: 4 mg Instruction: 2 x 2 mg tablets Condition: Dose/Route: 4 mg Instruction: 2 x 2 mg tablets Condition: Friday Dose/Route: 4 mg Instruction: 2 x 2 mg tablets Condition: Friday Dose/Route: 4 mg Instruction: 2 x 2 mg tablets Protocol Text: Adjustment Start Date: Friday01/15/22 INR Value: 2.7 INR Date: 01/15/22 Recheck Date: 01/22/22 amoxicillin-pot clavulanate [amoxicillin-pot clavulanate] 875 MG tablet 875 mg PO Q12H Qty: 20 0RF oxycodone-acetaminophen [Percocet] 5-325 mg tablet 1 tab PO Q6H PRN (Reason: pain) 3 Days Qty: 12 0RF tizanidine [Zanaflex] 4 mg tablet 4 mg PO QHS PRN (Reason: muscle spasticity) Qty: 10 0RF oxycodone-acetaminophen [oxycodone-acetaminophen] 1 TABLET tablet 1 tab PO Q4H PRN (Reason: Pain) 3 Days Qty: 18 0RF warfarin 2 mg tablet 4 mg PO DAILY (DME) BP monitor large cuff See Rx Instructions .Route .MEDSUPPLY Qty: 1 0RF Rx Instructions: As directed echinacea 380 mg capsule 380 mg PO DAILY Rx Instructions: administer with meals Primary Care Provider: Care Physician,No Primary Referrals: Care Physician,No Primary [Primary Care Provider] - Activity Restrictions/Additional Instructions: Follow-up with her primary care provider. Return if feeling worse. Your CAT scan and labs tonight were unremarkable. Disposition Disposition: Home, Self Care
--- NOTE | 2022-04-29 23:59 | ED.RN ---
pt does not know his home medication doses.
[2022-04-30] MEDS: Ondansetron 4 MG/2 ML Vial IV (00:06)
[2022-04-30 00:09] LABS: Absolute Lymphocyte Count 1.12 X10^3/uL (0.83-4.51); Basophil# 0.05 X10^3/uL; Basophil% 0.8 % (0-1); Eosinophil# 0.13 X10^3/uL; Hemoglobin 13.2 g/dL (13.0-16.5); Lymphocyte # 1.12 X10^3/ul (0.83-4.51); Lymphocyte % 17.2 % (19-41); Mean Corp Hgb Conc 31.4 g/dL (32-36); Mean Corpuscular Hgb 30.6 pg (27.0-32.0); Mean Corpuscular Volume 97.2 fL (80-94); Mean Platelet Vol. 10.1 fl (6.2-12.0); Monocyte% 18.4 % (0-10); NRBC Flagged by Analyzer 0 % (0-5); Neutrophil # 4.02 X10^3/uL (2.7-7.7); Neutrophil % 61.4 % (47-70); Platelet Count 205 K/mm3 (150-450); RBC Distribution Width SD 64.1 fl (35.1-43.9); Red Blood Count 4.32 M/mm3 (4.6-6.2); White Blood Count 6.5 K/mm3 (4.4-11.0)
[2022-04-30 00:27] LABS: Anion Gap 7 (5-15); BUN 26 mg/dL (7-18); BUN/Creat Ratio 3.6 RATIO (10-20); Calcium,Total 8.2 mg/dL (8.5-10.1); Chloride 96 mmol/L (98-107); EST Glomerular Filtration Rate 9 mL/min (>60); Est Glom Filt Rate - Afr Amer 11 mL/min (>60); Estimated Creatinine Clearance 13.89 ml/min; Glucose 84 mg/dL (74-106); Potassium 4.5 mmol/L (3.5-5.1); Sodium Level 137 mmol/L (136-145)
[2022-04-30 00:32] LABS: International Normalized Ratio 2.8; Prothrombin Time (Protime)PT. 28.9 SECONDS (11.7-14.9)
[2022-04-30] MEDS: morphine 8 MG/ML Syringe 6 MG IV (00:37)
[2022-04-30 00:39] VITALS: BP 101/57; PULSE 110; O2SAT 97
[2022-04-30 01:00] VITALS: BP 107/50; PULSE 102; RESP 22; O2SAT 96
[2022-04-30 01:52] VITALS: BMI 34.0
[2022-04-30 02:38] VITALS: BP 116/101
--- NOTE | 2022-04-30 23:53 | CT_ITS ---
INDICATION: headache on coumadin EXAMINATION: CT BRAIN - CT Head or Brain W/O Contrast Injection TECHNIQUE: Multiple axial images were obtained of the head without intravenous contrast. A radiation dose optimization technique was used for this scan. IV Contrast dosage and agent: None. RADIATION DOSAGE (If Supplied By Facility): CTDIvol = ( 44.99 ) mGy, DLP = ( 914.22 ) mGycm COMPARISON: None FINDINGS: HEMISPHERES: 1. The cerebral parenchyma, ventricular system, subarachnoid spaces have normal configuration and density. There is a normal gyral pattern. There is normal panda/white differentiation. No midline shift.. 2. Diffuse involutional changes and mild chronic microvascular deep white matter disease is present. 3. No intraparenchymal mass, hemorrhage, or acute territorial infarct. CEREBELLUM - BRAINSTEM: The cerebellum, brainstem, basilar and suprasellar cisterns have normal appearance. No Chiari malformation. PITUITARY: Partial empty sella is noted without evidence of sellar or suprasellar masses. CSF SPACES: Appropriate for age. No hydrocephalus. Basal cisterns are patent. VESSELS: 1. No significant vascular calcifications in the cavernous carotid vessels. 2. No hyperdense vascular signs noted.. ORBITS AND PARANASAL SINUSES: 1. Normal appearance of the bony orbits. Normal appearance of the globes and retrobulbar soft tissues.. 2. Paranasal sinuses are clear. BONY ELEMENTS: Bony elements of the cranial vault, facial skeleton and skull base have normal appearance. SCALP AND SOFT TISSUES: Normal appearance of the soft tissues of the scalp and the visualized face OTHER: None ASPECTS Score for Acute Strokes: 10 CT/Brain/Head without Contrast IMPRESSION: 1. Mild diffuse involutional changes and mild chronic microvascular deep white matter disease. 2. No mass, hemorrhage, or acute territorial infarct. 3. No radiographically significant sinus disease. Electronically Signed: Don Sky MD at 0:39 EDT ,
== END 2022-04-30 03:00 | disposition home or self-care (01) ==
PROVIDERS: Emergency Provider Emergency Medicine; Visit Provider Emergency Medicine
DX: R51.9 Headache, unspecified (principal); Z99.2 Dependence on renal dialysis; N18.6 End stage renal disease; I48.20 Chronic atrial fibrillation, unspecified; F12.90 Cannabis use, unspecified, uncomplicated; I25.2 Old myocardial infarction; G47.33 Obstructive sleep apnea (adult) (pediatric); E66.9 Obesity, unspecified; Z79.01 Long term (current) use of 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s; Z86.73 Personal history of transient ischemic attack (TIA), and cerebral infarction without residual deficits; Z86.16 Personal history of COVID-19; Z86.711 Personal history of pulmonary embolism
CPT/HCPCS: 70450; 80048; 85025; 85610; 96374; 96375; 99285; A4216; J2405

== ENCOUNTER 2022-05-13 19:37 | Emergency (ER) | payer MEDICARE, MEDICAID, SELFPAY ==
[2022-05-13 19:39] VITALS: BP 93/53; PULSE 124; RESP 18; TEMP 37.8; O2SAT 98; BMI 34.0
[2022-05-13] MEDS: Acetaminophen 500 MG Tablet 1000 MG PO (21:56)
[2022-05-13] MEDS: Ketorolac 30 MG/ML Syringe IV (21:56)
[2022-05-13 21:57] LABS: Absolute Lymphocyte Count 0.54 X10^3/uL (0.83-4.51); Absolute Neutrophil Count 7.1 X10^3/uL (2.0-7.7); Basophil# 0.03 X10^3/uL; Basophil% 0.3 % (0-1); Eosinophil# 0.01 X10^3/uL; Eosinophils% 0.1 % (0-5); Hematocrit 41.1 % (40-54); Lymphocyte # 0.54 X10^3/ul (0.83-4.51); Mean Corp Hgb Conc 31.6 g/dL (32-36); Mean Corpuscular Hgb 30.8 pg (27.0-32.0); Mean Corpuscular Volume 97.4 fL (80-94); Mean Platelet Vol. 9.9 fl (6.2-12.0); Monocyte# 1.35 X10^3/uL; Monocyte% 14.9 % (0-10); NRBC Flagged by Analyzer 0 % (0-5); Neutrophil # 7.08 X10^3/uL (2.7-7.7); Neutrophil % 78.1 % (47-70); POSITIVE DIFFERENTIAL YES; Platelet Count 165 K/mm3 (150-450); RBC Distribution Width CV 17.2 % (11.6-14.6); RBC Distribution Width SD 61.1 fl (35.1-43.9); Red Blood Count 4.22 M/mm3 (4.6-6.2); White Blood Count 9.1 K/mm3 (4.4-11.0)
[2022-05-13 22:04] LABS: Differential Indicated SCAN CRITERIA MET
--- NOTE | 2022-05-13 22:10 | RAD_ITS ---
INDICATION: fever EXAMINATION/TECHNIQUE: X-RAY - XR Chest 1 View COMPARISON: 2 view chest x-ray from 12/29/2021 FINDINGS: LINES/DEVICES: None. LUNGS: No overt pulmonary edema or focal airspace consolidation. No sizable pleural effusion. No pneumothorax detected. MEDIASTINUM AND CARDIOVASCULAR STRUCTURES: Heart size within normal limits. Status post sternotomy, cardiac valvuloplasty and left atrial appendage clipping. BONES AND SOFT TISSUES: Stable dextroscoliotic curvature of mid to lower thoracic spine. RAD/Chest 1 View (Portable) IMPRESSION: No radiographic evidence of acute cardiopulmonary disease. Electronically Signed: Shahram Keen MD at 22:33 EDT ,
[2022-05-13 22:27] LABS: International Normalized Ratio 2.4; Prothrombin Time (Protime)PT. 25.6 SECONDS (11.7-14.9)
[2022-05-13 22:32] LABS: Anisocytosis RARE; Macrocytosis RARE; Platelet Estimate ADEQUATE (ADEQ); Red Cell Morphology N CHROM NORMAL (NORM C&C)
[2022-05-13 22:37] LABS: Anion Gap 11 (5-15); BUN 30 mg/dL (7-18); BUN/Creat Ratio 3.8 RATIO (10-20); Calcium,Total 8.4 mg/dL (8.5-10.1); Chloride 93 mmol/L (98-107); EST Glomerular Filtration Rate 8 mL/min (>60); Est Glom Filt Rate - Afr Amer 10 mL/min (>60); Estimated Creatinine Clearance 12.67 ml/min; Glucose 103 mg/dL (74-106); Potassium 5.6 mmol/L (3.5-5.1); Sodium Level 134 mmol/L (136-145)
[2022-05-13 22:51] VITALS: BP 105/62; PULSE 119; RESP 18; TEMP 38.6; O2SAT 96
[2022-05-13] MEDS: DiphenhydrAMINE 50 MG/ML Syringe 12.5 MG IV (23:16)
--- NOTE | 2022-05-13 23:51 | EDS_ITS ---
HPI History of Present Illness Chief Complaint: General Illness Informant: patient Onset/Context/Timing Onset: Yesterday Context: Gradual Onset Current Severity: Moderate Maximum Severity: Moderate Narrative Narrative: Patient presents with generalized body aches. He states symptoms started after gnosticism yesterday afternoon. He has not had significant cough. He is dialysis dependent and did receive his full run of dialysis earlier today. 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) Central retinal artery occlusion of left eye (10/09/20) Chronic kidney disease-mineral and bone disorder Chronic pelvic pain in male Chronic ulcer of back COVID-19 virus detected (10/02/21) Daily headache Dental caries Dialysis AV fistula malfunction Dialysis patient ESRD on hemodialysis Essential (primary) hypertension Expressive aphasia (04/05/20) Hearing loss Hematuria History of bacterial endocarditis History of blood clots History of non-ST elevation myocardial infarction (NSTEMI) (11/08/19) History of pulmonary embolus (PE) History of venous thromboembolism 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 due to renal insufficiency Hypotension of hemodialysis 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 Mechanical complication of arteriovenous fistula surgically created Medication side effects Mitral valve annular calcification Morbidly obese Non compliance w medication regimen Non-healing non-surgical wound Nonrheumatic mitral valve stenosis with insufficiency Obstructive sleep apnea Pain of right lower extremity Paroxysmal atrial fibrillation (06/10/20) Paroxysmal atrial flutter 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) Pelvic mass Postoperative complete heart block (08/21/21) Sepsis Thrombosis of kidney dialysis arteriovenous graft Unspecified symptoms and signs involving cognitive functions and awareness (04/05/20) Home Medications brimonidine 0.2 % eye drops 1 drp LEFT EYE TID #1 BOTTLE 10/09/20 [Rx Last Taken 06/03/21] BP monitor #1 ea 07/17/21 [Rx Last Taken Unknown] echinacea 380 mg capsule 380 mg PO DAILY 10/08/21 [History Last Taken Unknown] aspirin 81 mg tablet,delayed release (Adult Aspirin Regimen) 81 mg PO DAILY 10/29/21 [History Last Taken Unknown] midodrine 10 mg tablet 10 mg PO TID 10/29/21 [History Last Taken Unknown] polyethylene glycol 3350 17 gram/dose oral powder 17 g PO BID PRN Constipation 10/29/21 [History Last Taken Unknown] trazodone 50 mg tablet 50 mg PO QHS 10/29/21 [History Last Taken Unknown] amoxicillin 875 mg-potassium clavulanate 125 mg tablet 875 mg PO Q12H #20 TABLETS 11/12/21 [Rx Last Taken Unknown] warfarin 2 mg tablet 2 mg PO TU 11/12/21 [History Last Taken Unknown] warfarin 2 mg tablet 4 mg PO SUMOWETHFRSA 11/12/21 [History Last Taken Unknown] oxycodone-acetaminophen 5 mg-325 mg tablet (Percocet) 1 tab PO Q6H PRN pain 3 days #12 tabs 12/29/21 [Rx Last Taken Unknown] tizanidine 4 mg tablet (Zanaflex) 4 mg PO QHS PRN muscle spasticity #10 tabs 01/02/22 [Rx Last Taken Unknown] oxycodone-acetaminophen 5 mg-325 mg tablet 1 tab PO Q4H PRN Pain 3 days #18 TABLETS 01/25/22 [Rx Last Taken Unknown] warfarin 2 mg tablet 4 mg PO DAILY 04/30/22 [History Last Taken Unknown] Allergy/AdvReac Type Severity Reaction Status Date / Time gabapentin Allergy Other Verified 05/13/22 19:41 Family History Other Adopted Surgical History History of angioplasty of peripheral vessel (08/28/21) History of cardioversion (12/02/18) history of cather replacement History of herniorrhaphy History of left heart catheterization (09/17/18) History of mitral valve replacement with bioprosthetic valve (08/21/21) History of repair of congenital cleft palate History of right and left heart catheterization (08/16/21) History of tooth extraction, class IV edentulism (09/11/21) Hx of mitral valve replacement Mechanical complication of dialysis catheter Status post creation of arteriovenous fistula Social History household members: none Smoking Status: Never smoker alcohol intake: never substance use type: marijuana what type of physical activity do you participate in: none ROS ROS ED Constitutional Constitutional ED: Reports fever(s) and subjective; Denies chills Eyes Eyes: Denies change in vision or discharge from eye(s) ENT ENT ED: Reports sore throat; Denies discharge from eye(s) or rhinorrhea Cardiovascular Cardiovascular: Denies chest pain or palpitations Respiratory/Chest Respiratory/Chest: Denies cough or dyspnea Gastrointestinal Gastrointestinal: Denies abdominal pain, diarrhea, nausea or vomiting Musculoskeletal Musculoskeletal: Reports myalgias; Denies back pain or extremity pain Integumentary Denies Abrasions or rash Neurologic Neurologic: Denies headache(s) or weakness Psychiatric Psychiatric: Denies anxiety or depression Allergic/Immunologic Allergic/Immunologic ED: Denies lip swelling or urticaria EXAM Physical Exam Const Vital Signs: 05/13/22 19:39 05/13/22 21:05 05/13/22 22:51 Temperature 100.1 F H 101.4 F H Temperature Source Temporal Oral Pulse Rate 124 H 119 H Respiratory Rate 18 18 Respiratory Effort Normal Non-Labored Respiratory Pattern Normal Blood Pressure 93/53 L 105/62 Blood Pressure Mean 66 76 Pulse Ox 98 96 Oxygen Delivery Method Room Air Room Air Positive well nourished and well developed General Appearance ED: well developed HEENT Reports normocephalic and head/scalp atraumatic Eyes PERRL and EOMs intact bilaterally Neck supple Chest Wall inspection of chest normal and palpation of chest normal Resp normal respiratory effort and clear to auscultation bilaterally Cardio regular rhythm Rate: tachycardic GI non-tender Palpation: soft Back/Spine no CVA tenderness Extremity normal to inspection Neuro oriented x3 and no sensory deficits noted Sensorium / Orientation: alert Motor Exam: strength 5/5 throughout Psych mental status grossly normal Skin no rashes or lesions noted MDM MDM MDM Narrative Medical decision making narrative: Patient initially had TA temperature in triage at 100.1. Oral temperature at the time of my exam was 100.4. Patient is given Tylenol along with IV Toradol. Lab work obtained along with chest x-ray. Rapid COVID test obtained. Lab Data Attestation: I reviewed the patient's lab results. Labs: Laboratory Results - last 24 hr 05/13/22 05/13/22 05/13/22 21:50 21:50 21:50 WBC 9.1 RBC 4.22 L Hgb 13.0 Hct 41.1 MCV 97.4 H MCH 30.8 MCHC 31.6 L RDW Std Deviation 61.1 H RDW Coeff of Lance 17.2 H Plt Count 165 MPV 9.9 Immature Gran % (Auto) 0.600 Neut % (Auto) 78.1 H Lymph % (Auto) 6.0 L Stanly % (Auto) 14.9 H Eos % (Auto) 0.1 Baso % (Auto) 0.3 Absolute Neuts (auto) 7.1 Absolute Lymphs (auto) 0.54 L Nucleated RBC % 0 Differential Comment SEE COMMENT Platelet Estimate ADEQUATE RBC Morphology N CHROM Anisocytosis RARE Macrocytosis RARE PT 25.6 H INR 2.4 Sodium 134 L Potassium 5.6 H Chloride 93 L Carbon Dioxide 30.0 Anion Gap 11 BUN 30 H Creatinine 8.00 H* Estim Creat Clear Calc 12.67 Est GFR (MDRD) Af Amer 10 L Est GFR (MDRD) Non-Af 8 L BUN/Creatinine Ratio 3.8 L Glucose 103 Calcium 8.4 L Rapid COVID: Negative Radiography Chest X-Ray - ED: 1 View, Read by ED Physician, Chronic Changes and No Infiltrates Diagnostic Testing: Clinical Impression(s) from Imaging Studies Chest X-Ray 05/13/22 22:10 IMPRESSION: No radiographic evidence of acute cardiopulmonary disease. Electronically Signed: Shahram Keen MD at 22:33 EDT , Treatment and Re-Evaluation Narrative: Patient's COVID test is negative. CBC is unremarkable. INR is therapeutic at 2.4. Chemistry studies reveal a BUN of 30 and a creatinine of 8. Again patient did receive his full run of dialysis today. His potassium was reported at 5.6. Chest x-ray reveals no focal infiltrate per my interpretation. Radiology interpretation is also reviewed. On repeat evaluation patient's temperature went up to 101.4. I ensured all of his blankets were removed. He now states that he has had a sore throat and is wondering if he might have strep. Rapid strep is sent and is negative. At this time repeat temperature is 99.6. Patient does have a viral syndrome. He will continue supportive care at home. Discharge Plan Triage Chief Complaint: General Illness ED Provider: Giuliana Pink Dx/Rx/DC Orders Clinical Impression: Viral syndrome Instructions: ED Viral Syndrome (Adult) Prescriptions: No Action aspirin [Adult Aspirin Regimen] 81 mg tablet,delayed release (DR/EC) 81 mg PO DAILY polyethylene glycol 3350 17 gram/dose powder 17 g PO BID PRN (Reason: Constipation) Label Comments: Take 1 capful by mouth twice daily as needed for constipation. Dissolve dose in 4 - 8 ounces of liquid and take as directed. midodrine 10 mg tablet 10 mg PO TID trazodone 50 mg tablet 50 mg PO QHS brimonidine 1 DROP bottle 1 drp LEFT EYE TID Qty: 1 0RF warfarin 2 mg Tablet 2 mg PO Protocol: Dose Management Condition: Friday Dose/Route: 4 mg Instruction: 2 x 2 mg tablets Condition: Friday Dose/Route: 4 mg Instruction: 2 x 2 mg tablets Condition: Friday Dose/Route: 4 mg Instruction: 2 x 2 mg tablets Condition: Friday Dose/Route: 4 mg Instruction: 2 x 2 mg tablets Condition: Dose/Route: 4 mg Instruction: 2 x 2 mg tablets Condition: Friday Dose/Route: 4 mg Instruction: 2 x 2 mg tablets Condition: Friday Dose/Route: 4 mg Instruction: 2 x 2 mg tablets Protocol Text: Adjustment Start Date: Friday01/15/22 INR Value: 2.7 INR Date: 01/15/22 Recheck Date: 01/22/22 warfarin 2 mg tablet 4 mg PO Protocol: Dose Management Condition: Friday Dose/Route: 4 mg Instruction: 2 x 2 mg tablets Condition: Friday Dose/Route: 4 mg Instruction: 2 x 2 mg tablets Condition: Friday Dose/Route: 4 mg Instruction: 2 x 2 mg tablets Condition: Friday Dose/Route: 4 mg Instruction: 2 x 2 mg tablets Condition: Dose/Route: 4 mg Instruction: 2 x 2 mg tablets Condition: Friday Dose/Route: 4 mg Instruction: 2 x 2 mg tablets Condition: Friday Dose/Route: 4 mg Instruction: 2 x 2 mg tablets Protocol Text: Adjustment Start Date: Friday01/15/22 INR Value: 2.7 INR Date: 01/15/22 Recheck Date: 01/22/22 amoxicillin-pot clavulanate [amoxicillin-pot clavulanate] 875 MG tablet 875 mg PO Q12H Qty: 20 0RF oxycodone-acetaminophen [Percocet] 5-325 mg tablet 1 tab PO Q6H PRN (Reason: pain) 3 Days Qty: 12 0RF tizanidine [Zanaflex] 4 mg tablet 4 mg PO QHS PRN (Reason: muscle spasticity) Qty: 10 0RF oxycodone-acetaminophen [oxycodone-acetaminophen] 1 TABLET tablet 1 tab PO Q4H PRN (Reason: Pain) 3 Days Qty: 18 0RF warfarin 2 mg tablet 4 mg PO DAILY (DME) BP monitor large cuff See Rx Instructions .Route .MEDSUPPLY Qty: 1 0RF Rx Instructions: As directed echinacea 380 mg capsule 380 mg PO DAILY Rx Instructions: administer with meals Primary Care Provider: Care Physician,No Primary Referrals: Care Physician,No Primary [Primary Care Provider] - Activity Restrictions/Additional Instructions: Follow-up with your primary care physician and 5 to 7 days if not improving. Disposition Disposition: Home, Self Care
[2022-05-14 00:12] VITALS: BP 110/64; PULSE 103; RESP 16; O2SAT 97
--- NOTE | 2022-05-14 23:45 | ED.RN ---
lab called with positive blood cultures results. gram positive cocci in clusters, spoke with Dr. Pink who advised patients cultures might be contaminated but suggesting patient come back into the ED or PCP have repeat blood work done. spoke with patient who states feeling better at this but still has a sore throat. patient expresses verbal understanding and is made aware of results and plan
== END 2022-05-14 00:20 | disposition home or self-care (01) ==
PROVIDERS: Emergency Provider Emergency Medicine; Visit Provider Emergency Medicine
DX: B34.9 Viral infection, unspecified (principal); Z99.2 Dependence on renal dialysis; I12.0 Hypertensive chronic kidney disease with stage 5 chronic kidney disease or end stage renal disease; N18.6 End stage renal disease; I48.0 Paroxysmal atrial fibrillation; E66.01 Morbid (severe) obesity due to excess calories; I25.2 Old myocardial infarction; D63.1 Anemia in chronic kidney disease; Z68.34 Body mass index [BMI] 34.0-34.9, adult; Z79.01 Long term (current) use of 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s; Z79.82 Long term (current) use of aspirin; Z79.899 Other long term (current) drug therapy; Z86.16 Personal history of COVID-19; Z86.711 Personal history of pulmonary embolism
CPT/HCPCS: 71045; 80048; 85025; 85610; 87040; 87077; 87149; 87186; 87811; 87880; 96374; 96375; 99284; A4216

== ENCOUNTER 2022-05-17 19:41 | Emergency (ER) | payer MEDICARE, MEDICAID, SELFPAY ==
[2022-05-17 19:42] VITALS: BP 103/76; PULSE 124; RESP 16; TEMP 37; O2SAT 96; BMI 34.0
--- NOTE | 2022-05-17 21:58 | CM.ED ---
Social Work Note Reason for Referral: No PCP SW in to speak with pt,. Pt confirms he has no PCP. SW provided pt with [facility] Healthcare Provider Directory/PCP list. Jaja Adams MSW, [employer]
--- NOTE | 2022-05-17 22:36 | CT_ITS ---
EXAM: CT NECK WITHOUT INTRAVENOUS CONTRAST CLINICAL INDICATION: throat pain TECHNIQUE: Helically acquired images were obtained of the neck without intravenous contrast. CTDIvol = ( 17.73 ) mGy, DLP = ( 567.05 ) mGycm This CT exam was performed using one or more of the following dose reduction techniques: automated exposure control, adjustment of the mA and/or kV according to patient size, and/or use of iterative reconstruction technique. This report was created using [employer] report generation technology. COMPARISON: None. FINDINGS: NASOPHARYNX: Unremarkable. SUPRAHYOID NECK: Thickening of the palatine tonsils. Consider tonsillitis. No phlegmon or abscess. INFRAHYOID NECK: Epiglottis is normal. SUBMANDIBULAR/PAROTID GLANDS: Unremarkable. Glands are normal in size. THYROID: Unremarkable. No enlarged or calcified nodules. SINUSES: Scattered paranasal sinus mucosal thickening with no air-fluid levels. MASTOID AIR CELLS: Mastoid air cells and middle ears are clear. BONES/JOINTS: No acute or healing fracture or malalignment. No unusual lytic or sclerotic lesions of bone. SOFT TISSUES: Scattered paranasal sinus mucosal thickening. Prominent varicosities involving the subcutaneous tissues of the anterior superior chest and adjacent neck. VASCULATURE: No acute findings. LYMPH NODES: Bilateral cervical adenopathy. LUNG APICES: Unremarkable as visualized. Evidence of prior sternotomy. CT/Soft Tissue Neck without Contr IMPRESSION: Thickening of the palatine tonsils. Consider tonsillitis. No phlegmon or abscess. Ancillary findings as above. Electronically Signed: Cory Jordan MD at 23:48 EDT ,
--- NOTE | 2022-05-17 22:38 | EDS_ITS ---
HPI HPI - URI History of Present Illness Chief Complaint: Cough Narrative Narrative: 42-year-old male seen on 05/13/2022 presenting for reevaluation. Patient initially had fevers, chills, sore throat, body aches, cough. He states that other than the sore throat everything has resolved. He states initially that he is coughing up blood but then he describes it as expectorating. He states he is not really coughing anymore. The patient is on Nielson him chronically. Patient states that he is on dialysis Friday, Friday, Friday. He states that he completed 4 hours and 5 minutes of his 4 hours and 45 minutes today. He states he did not finish because he had to go home. He denies chest pain or palpitations. Denies dizziness or lightheadedness. He has not had any black or bloody stools. Patient has been taking Tylenol without relief of his sore th roat or his headache. ROS ROS ED Constitutional Constitutional ED: Denies chills or fever(s) Eyes Eyes: Denies change in vision or diplopia ENT ENT ED: Reports sore throat; Denies rhinorrhea Cardiovascular Cardiovascular: Denies chest pain or palpitations Respiratory/Chest Respiratory/Chest: Denies cough or dyspnea Gastrointestinal Gastrointestinal: Denies abdominal pain, constipation, nausea or vomiting Genitourinary Genitourinary ED: Denies dysuria or hematuria Musculoskeletal Musculoskeletal: Denies arthralgias or back pain Neurologic Neurologic: Reports headache(s) [facility] Medical History Anemia of chronic disorder Atrial flutter with rapid ventricular response (07/2020) Bilateral carotid artery stenosis 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) Central retinal artery occlusion of left eye (10/09/20) Chronic kidney disease-mineral and bone disorder Chronic pelvic pain in male Chronic ulcer of back COVID-19 virus detected (10/02/21) Daily headache Dental caries Dialysis AV fistula malfunction Dialysis patient ESRD on hemodialysis Essential (primary) hypertension Expressive aphasia (04/05/20) Hearing loss Hematuria History of bacterial endocarditis History of blood clots History of non-ST elevation myocardial infarction (NSTEMI) (11/08/19) History of pulmonary embolus (PE) History of venous thromboembolism 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 due to renal insufficiency Hypotension of hemodialysis 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 Mechanical complication of arteriovenous fistula surgically created Medication side effects Mitral valve annular calcification Morbidly obese Non compliance w medication regimen Non-healing non-surgical wound Nonrheumatic mitral valve stenosis with insufficiency Obstructive sleep apnea Pain of right lower extremity Paroxysmal atrial fibrillation (06/10/20) Paroxysmal atrial flutter 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) Pelvic mass Postoperative complete heart block (08/21/21) Sepsis Thrombosis of kidney dialysis arteriovenous graft Unspecified symptoms and signs involving cognitive functions and awareness (04/05/20) Home Medications brimonidine 0.2 % eye drops 1 drp LEFT EYE TID #1 BOTTLE 10/09/20 [Rx Last Taken 06/03/21] BP monitor #1 ea 07/17/21 [Rx Last Taken Unknown] echinacea 380 mg capsule 380 mg PO DAILY 10/08/21 [History Last Taken Unknown] aspirin 81 mg tablet,delayed release (Adult Aspirin Regimen) 81 mg PO DAILY 10/29/21 [History Last Taken Unknown] midodrine 10 mg tablet 10 mg PO TID 10/29/21 [History Last Taken Unknown] polyethylene glycol 3350 17 gram/dose oral powder 17 g PO BID PRN Constipation 10/29/21 [History Last Taken Unknown] trazodone 50 mg tablet 50 mg PO QHS 10/29/21 [History Last Taken Unknown] amoxicillin 875 mg-potassium clavulanate 125 mg tablet 875 mg PO Q12H #20 TABLETS 11/12/21 [Rx Last Taken Unknown] warfarin 2 mg tablet 2 mg PO TU 11/12/21 [History Last Taken Unknown] warfarin 2 mg tablet 4 mg PO SUMOWETHFRSA 11/12/21 [History Last Taken Unknown] oxycodone-acetaminophen 5 mg-325 mg tablet (Percocet) 1 tab PO Q6H PRN pain 3 days #12 tabs 12/29/21 [Rx Last Taken Unknown] tizanidine 4 mg tablet (Zanaflex) 4 mg PO QHS PRN muscle spasticity #10 tabs 01/02/22 [Rx Last Taken Unknown] oxycodone-acetaminophen 5 mg-325 mg tablet 1 tab PO Q4H PRN Pain 3 days #18 TABLETS 01/25/22 [Rx Last Taken Unknown] warfarin 2 mg tablet 4 mg PO DAILY 04/30/22 [History Last Taken Unknown] amoxicillin 875 mg-potassium clavulanate 125 mg tablet 1 tab PO BID #20 tabs 05/18/22 [Rx Last Taken Unknown] Allergy/AdvReac Type Severity Reaction Status Date / Time gabapentin Allergy Other Verified 05/17/22 19:47 Family History Other Adopted Surgical History History of angioplasty of peripheral vessel (08/28/21) History of cardioversion (12/02/18) history of cather replacement History of herniorrhaphy History of left heart catheterization (09/17/18) History of mitral valve replacement with bioprosthetic valve (08/21/21) History of repair of congenital cleft palate History of right and left heart catheterization (08/16/21) History of tooth extraction, class IV edentulism (09/11/21) Hx of mitral valve replacement Mechanical complication of dialysis catheter Status post creation of arteriovenous fistula Social History household members: none Smoking Status: Never smoker alcohol intake: never substance use type: marijuana what type of physical activity do you participate in: none EXAM Physical Exam Const Vital Signs: 05/17/22 19:42 05/17/22 21:18 05/17/22 23:24 Temperature 98.6 F Temperature Source Temporal Pulse Rate 124 H Respiratory Rate 16 18 Respiratory Effort Normal Blood Pressure 103/76 Blood Pressure Mean 85 Pulse Ox 96 Oxygen Delivery Method Room Air 05/18/22 00:56 05/18/22 02:11 Temperature Temperature Source Pulse Rate 75 Respiratory Rate 16 16 Respiratory Effort Blood Pressure 123/87 H Blood Pressure Mean 99 Pulse Ox 97 Oxygen Delivery Method Room Air Positive well nourished General Appearance ED: NAD; Negative for pallor HEENT Reports moist mucous membranes and dry mucous membranes normocephalic and atraumatic Mouth ED: Yes oral and palatal mucosa normal, Yes lips normal, Yes tongue normal, Yes moist mucous membranes abnormal and Yes dry mucous membranes Mouth: oral and palatal mucosa normal, lips normal, tongue normal, moist mucous membranes abnormal and dry mucous membranes Eyes PERRL and EOMs intact bilaterally General Eye ED: Negative for pale conjunctiva or scleral icterus Resp normal respiratory effort and clear to auscultation bilaterally Cardio Rate: tachycardic Rhythm: regular rhythm GI non-tender Extremity normal to inspection and full ROM Psych mental status grossly normal Skin General Skin Exam: Negative for jaundice or pallor MDM MDM MDM Narrative Medical decision making narrative: Patient given morphine, Zofran for pain. Also basic lab work. I will recheck a chest x-ray even though he really states he is not coughing he did have a cough which may be the initiating problem. I will check his INR as well. I will obtain imaging of the neck because he is complaining of pain further down his throat and I can see but otherwise his oropharynx looks normal. Blood work was obtained and his CBC is unremarkable. INR therapeutic at 2.2. BMP is consistent with somebody with chronic renal disease on dialysis. His potassium slightly elevated 5.4 but is at his baseline. LFTs are normal with exception of elevated alkaline phosphatase. I obtained a chest x-ray which on my interpretation shows no acute cardiopulmonary process and radiologist agree. Because of his throat pain I did obtain a CT and it does show what looks like tonsillitis. He was already tested for strep and this was negative. His COVID's were negative as well. Patient will be given a dose of Decadron in the ED to help with his throat pain. We will started on Augmentin to cover for infection. As far as the bleeding that he is talking about its not hemoptysis. He states that when he clears his throat there is a small amount of blood in his throat. I do not see any blood in his oropharynx and his hemoglobin is 13.9 which is actually elevated. I think at this point he stable for discharge. Return precautions were discussed. Impression: 1. Tonsillitis 2. End-stage renal disease on dialysis Lab Data Labs: Laboratory Results - last 24 hr 05/17/22 05/17/22 05/17/22 22:30 22:30 22:30 WBC 7.3 RBC 4.58 L Hgb 13.9 Hct 44.7 MCV 97.6 H MCH 30.3 MCHC 31.1 L RDW Std Deviation 59.7 H RDW Coeff of Lance 16.5 H Plt Count 211 MPV 11.0 Immature Gran % (Auto) 0.700 Neut % (Auto) 62.1 Lymph % (Auto) 17.9 L Rhea % (Auto) 17.1 H Eos % (Auto) 1.5 Baso % (Auto) 0.7 Absolute Neuts (auto) 4.5 Absolute Lymphs (auto) 1.31 Nucleated RBC % 0 PT 24.0 H INR 2.2 Sodium 136 Potassium 5.4 H Chloride 94 L Carbon Dioxide 34.0 H Anion Gap 8 BUN 22 H Creatinine 7.68 H* Estim Creat Clear Calc 13.20 Est GFR (MDRD) Af Amer 10 L Est GFR (MDRD) Non-Af 8 L BUN/Creatinine Ratio 2.9 L Glucose 82 Calcium 9.1 Total Bilirubin 0.70 AST 36 ALT 33 Alkaline Phosphatase 134 H Total Protein 9.1 H Albumin 3.5 Globulin 5.6 H Albumin/Globulin Ratio 0.6 L Radiography Diagnostic Testing: Clinical Impression(s) from Imaging Studies Soft Tissue Neck CT 05/17/22 22:36 IMPRESSION: Thickening of the palatine tonsils. Consider tonsillitis. No phlegmon or abscess. Ancillary findings as above. Electronically Signed: Cory Jordan MD at 23:48 EDT , Chest X-Ray 05/17/22 22:55 IMPRESSION: No acute disease. Electronically Signed: Cory Jordan MD at 23:49 EDT , Discharge Plan Triage Chief Complaint: Cough ED Provider: Greg Lorenzo Dx/Rx/DC Orders Instructions: ED Tonsillitis Prescriptions: New amoxicillin-pot clavulanate 875-125 mg tablet 1 tab PO BID Qty: 20 0RF No Action aspirin [Adult Aspirin Regimen] 81 mg tablet,delayed release (DR/EC) 81 mg PO DAILY polyethylene glycol 3350 17 gram/dose powder 17 g PO BID PRN (Reason: Constipation) Label Comments: Take 1 capful by mouth twice daily as needed for constipation. Dissolve dose in 4 - 8 ounces of liquid and take as directed. midodrine 10 mg tablet 10 mg PO TID trazodone 50 mg tablet 50 mg PO QHS brimonidine 1 DROP bottle 1 drp LEFT EYE TID Qty: 1 0RF warfarin 2 mg Tablet 2 mg PO Protocol: Dose Management Condition: Friday Dose/Route: 4 mg Instruction: 2 x 2 mg tablets Condition: Friday Dose/Route: 4 mg Instruction: 2 x 2 mg tablets Condition: Friday Dose/Route: 4 mg Instruction: 2 x 2 mg tablets Condition: Friday Dose/Route: 4 mg Instruction: 2 x 2 mg tablets Condition: Dose/Route: 4 mg Instruction: 2 x 2 mg tablets Condition: Friday Dose/Route: 4 mg Instruction: 2 x 2 mg tablets Condition: Friday Dose/Route: 4 mg Instruction: 2 x 2 mg tablets Protocol Text: Adjustment Start Date: Friday01/15/22 INR Value: 2.7 INR Date: 01/15/22 Recheck Date: 01/22/22 warfarin 2 mg tablet 4 mg PO Protocol: Dose Management Condition: Friday Dose/Route: 4 mg Instruction: 2 x 2 mg tablets Condition: Friday Dose/Route: 4 mg Instruction: 2 x 2 mg tablets Condition: Friday Dose/Route: 4 mg Instruction: 2 x 2 mg tablets Condition: Friday Dose/Route: 4 mg Instruction: 2 x 2 mg tablets Condition: Dose/Route: 4 mg Instruction: 2 x 2 mg tablets Condition: Friday Dose/Route: 4 mg Instruction: 2 x 2 mg tablets Condition: Friday Dose/Route: 4 mg Instruction: 2 x 2 mg tablets Protocol Text: Adjustment Start Date: Friday01/15/22 INR Value: 2.7 INR Date: 01/15/22 Recheck Date: 01/22/22 amoxicillin-pot clavulanate [amoxicillin-pot clavulanate] 875 MG tablet 875 mg PO Q12H Qty: 20 0RF oxycodone-acetaminophen [Percocet] 5-325 mg tablet 1 tab PO Q6H PRN (Reason: pain) 3 Days Qty: 12 0RF tizanidine [Zanaflex] 4 mg tablet 4 mg PO QHS PRN (Reason: muscle spasticity) Qty: 10 0RF oxycodone-acetaminophen [oxycodone-acetaminophen] 1 TABLET tablet 1 tab PO Q4H PRN (Reason: Pain) 3 Days Qty: 18 0RF warfarin 2 mg tablet 4 mg PO DAILY (DME) BP monitor large cuff See Rx Instructions .Route .MEDSUPPLY Qty: 1 0RF Rx Instructions: As directed echinacea 380 mg capsule 380 mg PO DAILY Rx Instructions: administer with meals Primary Care Provider: Care Physician,No Primary Referrals: Care Physician,No Primary [Primary Care Provider] - Disposition Disposition: Home, Self Care Discharge Date/Time: 05/18/22 02:12
[2022-05-17 22:40] LABS: Absolute Lymphocyte Count 1.31 X10^3/uL (0.83-4.51); Absolute Neutrophil Count 4.5 X10^3/uL (2.0-7.7); Basophil# 0.05 X10^3/uL; Basophil% 0.7 % (0-1); Eosinophil# 0.11 X10^3/uL; Eosinophils% 1.5 % (0-5); Hematocrit 44.7 % (40-54); Hemoglobin 13.9 g/dL (13.0-16.5); Lymphocyte # 1.31 X10^3/ul (0.83-4.51); Lymphocyte % 17.9 % (19-41); Mean Corp Hgb Conc 31.1 g/dL (32-36); Mean Corpuscular Hgb 30.3 pg (27.0-32.0); Mean Corpuscular Volume 97.6 fL (80-94); Monocyte# 1.25 X10^3/uL; Monocyte% 17.1 % (0-10); NRBC Flagged by Analyzer 0 % (0-5); Neutrophil # 4.54 X10^3/uL (2.7-7.7); Neutrophil % 62.1 % (47-70); Platelet Count 211 K/mm3 (150-450); RBC Distribution Width CV 16.5 % (11.6-14.6); RBC Distribution Width SD 59.7 fl (35.1-43.9); Red Blood Count 4.58 M/mm3 (4.6-6.2); White Blood Count 7.3 K/mm3 (4.4-11.0)
[2022-05-17 22:48] LABS: International Normalized Ratio 2.2
--- NOTE | 2022-05-17 22:55 | RAD_ITS ---
EXAM: XR CHEST, 1 VIEW CLINICAL INDICATION: cough TECHNIQUE: Frontal view of the chest. This report was created using [employer] report generation technology. COMPARISON: None. FINDINGS: LUNGS AND PLEURAL SPACES: Unremarkable. No consolidation or edema. No pneumothorax. No effusion. HEART: Aortic valve replacement. Atrial appendage clipping place. MEDIASTINUM: Central airways and mediastinal contour are unremarkable. BONES/JOINTS: Chronic bone loss involving the left humeral head. S-shaped curvature of the spine. Intact sternotomy wires. SOFT TISSUES: Unremarkable. RAD/Chest 1 View (Portable) IMPRESSION: No acute disease. Electronically Signed: Cory Jordan MD at 23:49 EDT ,
[2022-05-17] MEDS: Ondansetron 4 MG/2 ML Vial IV (23:17)
[2022-05-17] MEDS: Morphine 4 MG/ML Syringe IV (23:18)
[2022-05-17 23:19] LABS: ALB/GLOB Ratio 0.6 RATIO (0.9-2.4); AST(SGOT) 36 U/L (15-37); Alanine Aminotransfer ALT/SGPT 33 U/L (16-61); Albumin, Serum 3.5 g/dL (3.2-5.0); Alkaline Phosphatase 134 U/L (45-117); Anion Gap 8 (5-15); BUN 22 mg/dL (7-18); BUN/Creat Ratio 2.9 RATIO (10-20); Calcium,Total 9.1 mg/dL (8.5-10.1); Chloride 94 mmol/L (98-107); Creatinine, Serum 7.68 mg/dL (0.70-1.30); EST Glomerular Filtration Rate 8 mL/min (>60); Est Glom Filt Rate - Afr Amer 10 mL/min (>60); Globulin 5.6 g/dL (2.2-4.2); Glucose 82 mg/dL (74-106); Potassium 5.4 mmol/L (3.5-5.1); Protein, Total 9.1 g/dL (6.4-8.2); Sodium Level 136 mmol/L (136-145)
[2022-05-17 23:24] VITALS: RESP 18
[2022-05-18 00:56] VITALS: BP 123/87; PULSE 75; RESP 16; O2SAT 97
[2022-05-18] MEDS: dexAMETHasone 10 MG/ML Vial PO.IVFORM (02:03)
[2022-05-18] MEDS: Amox/Clavulanate 875 MG Tablet PO (02:03)
[2022-05-18 02:11] VITALS: RESP 16
== END 2022-05-18 02:12 | disposition home or self-care (01) ==
PROVIDERS: Emergency Provider Student in an Organized Health Care Education/Training Program; Visit Provider Student in an Organized Health Care Education/Training Program
DX: J03.90 Acute tonsillitis, unspecified (principal); Z99.2 Dependence on renal dialysis; I12.0 Hypertensive chronic kidney disease with stage 5 chronic kidney disease or end stage renal disease; N18.6 End stage renal disease; I48.0 Paroxysmal atrial fibrillation; E66.01 Morbid (severe) obesity due to excess calories; D63.8 Anemia in other chronic diseases classified elsewhere; Z86.16 Personal history of COVID-19; I25.2 Old myocardial infarction; Z86.718 Personal history of other venous thrombosis and embolism; G47.33 Obstructive sleep apnea (adult) (pediatric); I34.2 Nonrheumatic mitral (valve) stenosis; Z79.82 Long term (current) use of aspirin; Z79.01 Long term (current) use of 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s; Z79.899 Other long term (current) drug therapy; Z95.2 Presence of prosthetic heart valve; Z68.34 Body mass index [BMI] 34.0-34.9, adult
CPT/HCPCS: 70490; 71045; 80053; 85025; 85610; 96374; 96375; 99284; A4216; J2405

== ENCOUNTER 2022-06-25 18:19 | Emergency (ER) | payer MEDICARE, MEDICAID, SELFPAY ==
[2022-06-25 18:20] VITALS: BP 124/89; PULSE 74; RESP 16; TEMP 37.2; O2SAT 92; BMI 34.0
--- NOTE | 2022-06-25 19:31 | EDS_ITS ---
HPI History of Present Illness HPI Narrative: Patient presents with left knee pain that began after a fall 1 week ago. Patient states that the pain has been getting progressively worse. Patient states nothing makes it worse and nothing makes it better. Patient describes the pain as aching and burning. Patient denies any paresthesias or weakness. Patient denies any head injury or loss of consciousness with the fall. Patient denies any swelling of the knee. Patient denies any fevers or chills. 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) Central retinal artery occlusion of left eye (10/09/20) Chronic kidney disease-mineral and bone disorder Chronic pelvic pain in male Chronic ulcer of back COVID-19 virus detected (10/02/21) Daily headache Dental caries Dialysis AV fistula malfunction Dialysis patient ESRD on hemodialysis Essential (primary) hypertension Expressive aphasia (04/05/20) Hearing loss Hematuria History of bacterial endocarditis History of blood clots History of non-ST elevation myocardial infarction (NSTEMI) (11/08/19) History of pulmonary embolus (PE) History of venous thromboembolism 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 due to renal insufficiency Hypotension of hemodialysis 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 Mechanical complication of arteriovenous fistula surgically created Medication side effects Mitral valve annular calcification Morbidly obese Non compliance w medication regimen Non-healing non-surgical wound Nonrheumatic mitral valve stenosis with insufficiency Obstructive sleep apnea Pain of right lower extremity Paroxysmal atrial fibrillation (06/10/20) Paroxysmal atrial flutter 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) Pelvic mass Postoperative complete heart block (08/21/21) Sepsis Thrombosis of kidney dialysis arteriovenous graft Unspecified symptoms and signs involving cognitive functions and awareness (04/05/20) Home Medications BP monitor #1 ea 07/17/21 [Rx Last Taken Unknown] aspirin 81 mg tablet,delayed release (Adult Aspirin Regimen) 81 mg PO DAILY 10/29/21 [History Last Taken Unknown] midodrine 10 mg tablet 10 mg PO TID 10/29/21 [History Last Taken Unknown] warfarin 2 mg tablet 4 mg PO DAILY 04/30/22 [History Last Taken Unknown] sevelamer carbonate 800 mg tablet 800 mg PO TID 06/25/22 [History Last Taken Unknown] Allergy/AdvReac Type Severity Reaction Status Date / Time gabapentin Allergy Other Verified 06/25/22 19:38 Family History Other Adopted Surgical History History of angioplasty of peripheral vessel (08/28/21) History of cardioversion (12/02/18) history of cather replacement History of herniorrhaphy History of left heart catheterization (09/17/18) History of mitral valve replacement with bioprosthetic valve (08/21/21) History of repair of congenital cleft palate History of right and left heart catheterization (08/16/21) History of tooth extraction, class IV edentulism (09/11/21) Hx of mitral valve replacement Mechanical complication of dialysis catheter Status post creation of arteriovenous fistula Social History household members: none Smoking Status: Never smoker alcohol intake: never substance use type: marijuana what type of physical activity do you participate in: none ROS ROS ED Constitutional Constitutional ED: Denies chills or fever(s) Eyes Eyes: Denies blurry vision or change in vision ENT ENT ED: Denies rhinorrhea or sore throat Cardiovascular Cardiovascular: Denies chest pain or palpitations Respiratory/Chest Respiratory/Chest: Denies cough or dyspnea Gastrointestinal Gastrointestinal: Denies nausea or vomiting Genitourinary Genitourinary ED: Denies dysuria or hematuria Musculoskeletal Musculoskeletal: Reports neck pain; Denies back pain Integumentary Denies abscess or rash Neurologic Neurologic: Denies headache(s) or weakness Allergic/Immunologic Allergic/Immunologic ED: Denies mouth swelling or urticaria EXAM Physical Exam Const Vital Signs: 06/25/22 18:20 06/25/22 21:07 Temperature 98.9 F Temperature Source Temporal Pulse Rate 74 Respiratory Rate 16 18 Blood Pressure 124/89 H Blood Pressure Mean 100 Pulse Ox 92 Oxygen Delivery Method Room Air Room Air Positive well nourished and well developed General Appearance ED: well developed and NAD HEENT Reports moist mucous membranes Neck full ROM and supple Extremity Extremity Narrative: There is diffuse tenderness over the left knee. There is no effusion. There is no bony crepitance or step-off. There is no obvious deformity noted. Range of motion was limited in all motions of the left knee secondary to pain. There is some guarding on examination. There is no laxity appreciated. Sensation was intact to light touch bilaterally in the lower extremities. Pedal pulses are equal bilaterally. Neuro oriented x3, CN's II-XII intact bilaterally, moves all extremities and no sensory deficits noted Sensorium / Orientation: alert Motor Exam: strength 5/5 throughout Psych mental status grossly normal MDM MDM MDM Narrative Medical decision making narrative: X-rays of the left knee were obtained. There are 4 views. On my interpretation, there is no acute fracture or dislocation. There are degenerative changes noted. There is no soft tissue swelling or joint effusion noted. Radiologist also interpreted the x-rays and agrees. Patient was given a dose of [place] here. Patient was instructed to ice and elevate the left knee. Patient was instructed to take Tylenol as needed for pain. Patient was instructed to follow-up with his primary care physician in 5 to 7 days for further evaluation. Patient understood and was agreeable with the plan. All questions were answered. Radiography Diagnostic Testing: Clinical Impression(s) from Imaging Studies Knee X-Ray 06/25/22 20:05 IMPRESSION: Degenerative arthrosis. Electronically Signed: Dmitriy Spain MD at 20:34 EDT , Discharge Plan Triage Chief Complaint: Lower Extremity Injury ED Provider: Piero Marques Dx/Rx/DC Orders Clinical Impression: Acute pain of left knee, ESRD (end stage renal disease) Instructions: ED Knee Pain of Uncertain Cause Prescriptions: No Action aspirin [Adult Aspirin Regimen] 81 mg tablet,delayed release (DR/EC) 81 mg PO DAILY midodrine 10 mg tablet 10 mg PO TID warfarin 2 mg tablet 4 mg PO DAILY sevelamer carbonate 800 mg tablet 800 mg PO TID Label Comments: TAKE 3 TABLETS BY MOUTH THREE TIMES DAILY WITH MEALS (DME) BP monitor large cuff See Rx Instructions .[facility] Qty: 1 0RF Rx Instructions: As directed Primary Care Provider: Care Physician,No Primary Referrals: Care Physician,No Primary [Primary Care Provider] - Doctor,Your [Non-Staff] - 5-7 Days Disposition Disposition: Home, Self Care
--- NOTE | 2022-06-25 20:05 | RAD_ITS ---
STUDY: X-RAY - LEFT KNEE REASON FOR EXAM: Male, 42 years old. Injury/Pain TECHNIQUE: 4 view(s) of the knee. COMPARISON: None. FINDINGS: Normal visualized distal femur. Normal visualized proximal tibia and fibula. Normal proximal tibiofibular articulation. There is no demonstrated fracture. Normal medial femorotibial compartment. There is mild degenerative arthrosis of the lateral femorotibial compartment. There is mild degenerative arthrosis of the patellofemoral articulation. The soft tissue structures are unremarkable. RAD/Knee 4 or More Views IMPRESSION: Degenerative arthrosis. Electronically Signed: Dmitriy Spain MD at 20:34 EDT ,
[2022-06-25 21:07] VITALS: RESP 18
[2022-06-25] MEDS: HYDROcodone Bitartrate/Apap 5/325 Tablet PO (21:42)
== END 2022-06-25 21:44 | disposition home or self-care (01) ==
PROVIDERS: Emergency Provider Emergency Medicine; Visit Provider Emergency Medicine
DX: M25.562 Pain in left knee (principal); N18.6 End stage renal disease; F12.90 Cannabis use, unspecified, uncomplicated; I25.2 Old myocardial infarction; G47.33 Obstructive sleep apnea (adult) (pediatric); Z86.16 Personal history of COVID-19; Z86.711 Personal history of pulmonary embolism; Z79.82 Long term (current) use of aspirin; Z79.01 Long term (current) use of 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s
CPT/HCPCS: 73564; 99283

== ENCOUNTER 2022-08-19 16:45 | Emergency (ER) | payer MEDICARE, MEDICAID, SELFPAY ==
[2022-08-19 16:47] VITALS: BP 121/77; PULSE 89; RESP 18; TEMP 36.6; O2SAT 99; BMI 35.4
--- NOTE | 2022-08-19 19:25 | CT_ITS ---
EXAM: CT HEAD WITHOUT INTRAVENOUS CONTRAST CLINICAL INDICATION: headache, blurred vision TECHNIQUE: Multiple axial images were obtained of the head without intravenous contrast. This CT exam was performed using one or more of the following dose reduction techniques: automated exposure control, adjustment of the mA and/or kV according to patient size, and/or use of iterative reconstruction technique. This report was created using [employer] report generation technology. COMPARISON: 04/30/2022 FINDINGS: BRAIN AND EXTRA-AXIAL SPACES: Unremarkable. No intra- or extra-axial hemorrhage. No evidence of acute infarct. No intracranial mass or mass effect. There is preservation of the panda/white matter interface. Posterior fossa structures are unremarkable. Ventricles are appropriate for age. No hydrocephalus. Basal cisterns are patent. BONES/JOINTS: Unremarkable. No discrete lytic or blastic abnormalities. SINUSES: Unremarkable as visualized. Clear. MASTOID AIR CELLS: Unremarkable. Clear. ORBITS: Visualized globes, extraocular muscles, optic nerves and retrobulbar fat appear unremarkable. CT/Brain/Head without Contrast IMPRESSION: Negative head/brain CT without intravenous contrast. There has been no change from reference exam. Electronically Signed: Ananda Alcantara MD at 20:03 [facility] ,
--- NOTE | 2022-08-19 19:27 | EDS_ITS ---
HPI History of Present Illness Chief Complaint: Neuro S/Sx Narrative Narrative: Patient presents with multiple complaints that began at around 715 this morning when he awoke. This was over 12 hours ago. He has past medical history of a stroke where he states he lost vision in his left eye and is legally blind. He states that he has end-stage renal disease and usually gets dialysis 4 times a week, Friday, Friday, Friday, and Friday because his job does not allow him to be gone for 3 full days a week so he only received partial dialysis 4 times a week. Because of the iday, he states that they blended together and he went to dialysis on Friday, Friday, and Friday. When he awoke this morning he states he has a headache, and he has blurry vision and seeing double vision out of his right eye which he has vision is but is legally blind in his left eye chronically from his previous stroke. While he has bilateral finger numbness, he denies any fevers or chills, no nausea or vomiting, no other symptoms. He is concerned about his headache and that he may be having a stroke in his right eye. [facility] Medical History Anemia of chronic disorder Atrial flutter with rapid ventricular response (07/2020) Bilateral carotid artery stenosis 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) Central retinal artery occlusion of left eye (10/09/20) Chronic kidney disease-mineral and bone disorder Chronic pelvic pain in male Chronic ulcer of back COVID-19 virus detected (10/02/21) Daily headache Dental caries Dialysis AV fistula malfunction Dialysis patient ESRD on hemodialysis Essential (primary) hypertension Expressive aphasia (04/05/20) Hearing loss Hematuria History of bacterial endocarditis History of blood clots History of non-ST elevation myocardial infarction (NSTEMI) (11/08/19) History of pulmonary embolus (PE) History of venous thromboembolism 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 due to renal insufficiency Hypotension of hemodialysis 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 Mechanical complication of arteriovenous fistula surgically created Medication side effects Mitral valve annular calcification Morbidly obese Non compliance w medication regimen Non-healing non-surgical wound Nonrheumatic mitral valve stenosis with insufficiency Obstructive sleep apnea Pain of right lower extremity Paroxysmal atrial fibrillation (06/10/20) Paroxysmal atrial flutter 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) Pelvic mass Postoperative complete heart block (08/21/21) Sepsis Thrombosis of kidney dialysis arteriovenous graft Unspecified symptoms and signs involving cognitive functions and awareness (04/05/20) Home Medications BP monitor #1 ea 07/17/21 [Rx Last Taken Unknown] aspirin 81 mg tablet,delayed release (Adult Aspirin Regimen) 81 mg PO DAILY 10/29/21 [History Last Taken Unknown] midodrine 10 mg tablet 10 mg PO TID 10/29/21 [History Last Taken Unknown] warfarin 2 mg tablet 4 mg PO DAILY 04/30/22 [History Last Taken Unknown] sevelamer carbonate 800 mg tablet 800 mg PO TID 06/25/22 [History Last Taken Unknown] Allergy/AdvReac Type Severity Reaction Status Date / Time gabapentin Allergy Other Verified 06/25/22 19:38 Family History Other Adopted Surgical History History of angioplasty of peripheral vessel (08/28/21) History of cardioversion (12/02/18) history of cather replacement History of herniorrhaphy History of left heart catheterization (09/17/18) History of mitral valve replacement with bioprosthetic valve (08/21/21) History of repair of congenital cleft palate History of right and left heart catheterization (08/16/21) History of tooth extraction, class IV edentulism (09/11/21) Hx of mitral valve replacement Mechanical complication of dialysis catheter Status post creation of arteriovenous fistula Social History household members: none Smoking Status: Never smoker alcohol intake: never substance use type: marijuana what type of physical activity do you participate in: none ROS ROS ED ROS Narrative Constitutional: No fever, no chills. HEENT: No sore throat. No neck pain. No loss of vision. No rhinorrhea. Blurred vision and double vision out of right eye. Legally blind in left eye. Cardiovascular: No chest pain. No palpitations. No pedal edema. Respiratory: No cough, no shortness of breath. Abdominal: No abdominal pain. No nausea. No vomiting. Genitourinary: No dysuria. No hematuria. Musculoskeletal: No myalgias. No arthralgias. Neurologic: Positive headaches. No dizziness. No lightheadedness. Positive paresthesias of bilateral fingers. Skin: No rash. No change in color. Psychiatric: No depression. No anxiety. EXAM Physical Exam Narrative Exam Narrative: Afebrile. Vital signs noted. HEENT: Normocephalic. Atraumatic. PERRL, EOMI. Neck soft and supple. No point tenderness or step off. No temporal artery tenderness. Cardiovascular: Regular rate and rhythm. No murmurs, rubs, or gallops appreciated. Respiratory: No tachypnea. Lungs clear to auscultation bilaterally. Gastrointestinal: Abdomen soft, nontender, with normoactive bowel sounds. No rebound or guarding. Neurological: Awake. Alert. Nonfocal, nonlateralizing. NIH is 1 for this legal blindness out of his left eye, otherwise negative Skin: No rash. Normal color. No pallor. Musculoskeletal: No pedal edema. Full range of motion extremities. Const Vital Signs: 08/19/22 16:47 Temperature 97.8 F Temperature Source Temporal Pulse Rate 89 Respiratory Rate 18 Blood Pressure 121/77 H Blood Pressure Mean 91 Pulse Ox 99 Oxygen Delivery Method Room Air MDM MDM MDM Narrative Medical decision making narrative: In review of his EMR, his left eye blindness is secondary to central retinal artery occlusion. He is not describing pulling down of a shade or anything related to temporal arteritis. I do feel that he may have taken too much fluid off during his dialysis. I will obtain CT of his brain, ESR, and basic laboratory work. Patient has normal white count of 6.7, hemoglobin stable at 14.1, platelet count 221. Sodium is slightly low at 133, potassium 4.4, creatinine consistent with end-stage renal disease of 8.9 with a BUN of 42. Glucose of 103. He was bolused normal saline 1 L intravenously. States he still had a headache so I gave him an Ultram as he said Tylenol was ineffective. Brain CT shows no acute process, no change from previous. He was given prednisone 60 mg orally. I discussed the patient with Dr. Clifford for follow-up as a primary care physician, but she referred to ophthalmology with the thought that he may have temporal arteritis. His ESR is greater than 130, but the patient does have end-stage renal disease with dialysis and I think that this is elevated for other reasons. I then discussed the patient with Dr. Henry with ophthalmology who states that patients under the age of 60 do not get giant cell arteritis, and it was felt that a prednisone taper is not necessary. He will follow-up with the patient given his blurred vision and double vision tomorrow in the office. I stressed the importance of following up with ophthalmology with the patient tomorrow. I feel he can be discharged safely home with follow-up. Return instructions to the emergency department were reviewed. Disposition is discharged home in stable condition. Lab Data Attestation: I reviewed the patient's lab results. Labs: Laboratory Results - last 24 hr 08/19/22 08/19/22 19:32 19:32 WBC 6.7 RBC 4.60 Hgb 14.1 Hct 44.6 MCV 97.0 H MCH 30.7 MCHC 31.6 L RDW Std Deviation 53.9 H RDW Coeff of Lance 15.1 H Plt Count 221 MPV 10.2 Immature Gran % (Auto) 0.300 Neut % (Auto) 44.0 L Lymph % (Auto) 27.3 [place] % (Auto) 24.5 H Eos % (Auto) 3.0 Baso % (Auto) 0.9 Absolute Neuts (auto) 2.9 Absolute Lymphs (auto) 1.82 Nucleated RBC % 0 Differential Comment SCANNED ESR > 130 H Sodium 133 L Potassium 4.4 Chloride 91 L Carbon Dioxide 30.0 Anion Gap 12 BUN 42 H Creatinine 8.92 H* Estim Creat Clear Calc 11.37 Est GFR (MDRD) Af Amer 9 L Est GFR (MDRD) Non-Af 7 L BUN/Creatinine Ratio 4.7 L Glucose 103 Calcium 8.4 L Radiography Diagnostic Testing: Clinical Impression(s) from Imaging Studies Brain CT 08/19/22 19:25 IMPRESSION: Negative head/brain CT without intravenous contrast. There has been no change from reference exam. Electronically Signed: Ananda Alcantara MD at 20:03 EST , Discharge Plan Triage Chief Complaint: Neuro S/Sx ED Provider: Camilo Kramer Dx/Rx/DC Orders Clinical Impression: Headache, Blurred vision, right eye Instructions: ED Blurred Vision, ED Headache Unspecified Prescriptions: No Action aspirin [Adult Aspirin Regimen] 81 mg tablet,delayed release (DR/EC) 81 mg PO DAILY midodrine 10 mg tablet 10 mg PO TID warfarin 2 mg tablet 4 mg PO DAILY sevelamer carbonate 800 mg tablet 800 mg PO TID Label Comments: TAKE 3 TABLETS BY MOUTH THREE TIMES DAILY WITH MEALS (DME) BP monitor large cuff See Rx Instructions .Route .MEDSUPPLY Qty: 1 0RF Rx Instructions: As directed Primary Care Provider: Care Physician,No Primary Referrals: Carlos Clifford MD [Med Staff - Active Staff] - 1-2 Days if not improving Sofie Clifford MD [Med Staff - Rn First Assistant] - 3-5 Days Matt Henry MD [Med Staff - Active Staff] - 1 Day Care Physician,No Primary [Primary Care Provider] - Disposition Disposition: Home, Self Care
[2022-08-19] MEDS: 0.9% Normal Saline 1,000 ML 100 ML IV (19:39)
[2022-08-19 19:40] LABS: Absolute Lymphocyte Count 1.82 X10^3/uL (0.83-4.51); Absolute Neutrophil Count 2.9 X10^3/uL (2.0-7.7); Basophil# 0.06 X10^3/uL; Basophil% 0.9 % (0-1); Hematocrit 44.6 % (40-54); Hemoglobin 14.1 g/dL (13.0-16.5); Lymphocyte # 1.82 X10^3/ul (0.83-4.51); Lymphocyte % 27.3 % (19-41); Mean Corp Hgb Conc 31.6 g/dL (32-36); Mean Corpuscular Hgb 30.7 pg (27.0-32.0); Mean Platelet Vol. 10.2 fl (6.2-12.0); Monocyte# 1.63 X10^3/uL; Monocyte% 24.5 % (0-10); NRBC Flagged by Analyzer 0 % (0-5); Neutrophil # 2.93 X10^3/uL (2.7-7.7); POSITIVE DIFFERENTIAL YES; Platelet Count 221 K/mm3 (150-450); RBC Distribution Width CV 15.1 % (11.6-14.6); RBC Distribution Width SD 53.9 fl (35.1-43.9); White Blood Count 6.7 K/mm3 (4.4-11.0)
[2022-08-19 19:56] LABS: Anion Gap 12 (5-15); BUN 42 mg/dL (7-18); BUN/Creat Ratio 4.7 RATIO (10-20); Calcium,Total 8.4 mg/dL (8.5-10.1); Chloride 91 mmol/L (98-107); Creatinine, Serum 8.92 mg/dL (0.70-1.30); EST Glomerular Filtration Rate 7 mL/min (>60); Est Glom Filt Rate - Afr Amer 9 mL/min (>60); Estimated Creatinine Clearance 11.37 ml/min; Glucose 103 mg/dL (74-106); Potassium 4.4 mmol/L (3.5-5.1); Sodium Level 133 mmol/L (136-145)
[2022-08-19] MEDS: traMADol 50 MG Tablet PO (20:08)
[2022-08-19 20:14] LABS: Differential Comment SCANNED; Differential Indicated SCAN CRITERIA MET; Erythrocyte Sedimentation Rate > 130 mm/hr (0-20)
[2022-08-19 22:06] VITALS: BMI 35.4
[2022-08-19] MEDS: predniSONE 20 MG Tablet 60 MG PO (22:14)
[2022-08-19 22:33] LABS: CRP 9.68 mg/L (0.0-3.0)
== END 2022-08-19 22:25 | disposition home or self-care (01) ==
PROVIDERS: Emergency Provider Emergency Medicine; Visit Provider Emergency Medicine
DX: R51.9 Headache, unspecified (principal); Z99.2 Dependence on renal dialysis; N18.6 End stage renal disease; H53.8 Other visual disturbances; F12.90 Cannabis use, unspecified, uncomplicated; I25.2 Old myocardial infarction; G47.33 Obstructive sleep apnea (adult) (pediatric); Z86.16 Personal history of COVID-19; Z86.73 Personal history of transient ischemic attack (TIA), and cerebral infarction without residual deficits
CPT/HCPCS: 70450; 80048; 85025; 85652; 86140; 96360; 96361; 99284; J7030; A4216

== ENCOUNTER 2022-09-20 18:51 | Emergency (ER) | payer MEDICARE, MEDICAID, SELFPAY ==
[2022-09-20 18:53] VITALS: BP 138/75; PULSE 84; RESP 16; TEMP 36.3; O2SAT 96; BMI 34.0
--- NOTE | 2022-09-20 19:36 | EDS_ITS ---
HPI History of Present Illness Chief Complaint: Upper Extremity Injury Informant: patient Narrative Narrative: Patient is a 42-year-old male with extensive medical history including mechanical valve on chronic Coumadin therapy as well as end-stage renal disease on hemodialysis (currently has a graft in his groin) with last hemodialysis earlier today. He is presenting with atraumatic pain and swelling to his left upper arm. Initially he had pain in his outer arm but over the past 2 days it has been in his inner arm and he now feels a knot. Has pain that is worse with movement. No associated numbness or tingling. No other complaints at this time. No systemic symptoms including fever or chills. Note he is otherwise feeling well. [facility] Medical History Anemia of chronic disorder Atrial flutter with rapid ventricular response (07/2020) Bilateral carotid artery stenosis 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) Central retinal artery occlusion of left eye (10/09/20) Chronic kidney disease-mineral and bone disorder Chronic pelvic pain in male Chronic ulcer of back COVID-19 virus detected (10/02/21) Daily headache Dental caries Dialysis AV fistula malfunction Dialysis patient ESRD on hemodialysis Essential (primary) hypertension Expressive aphasia (04/05/20) Hearing loss Hematuria History of bacterial endocarditis History of blood clots History of non-ST elevation myocardial infarction (NSTEMI) (11/08/19) History of pulmonary embolus (PE) History of venous thromboembolism 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 due to renal insufficiency Hypotension of hemodialysis 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 Mechanical complication of arteriovenous fistula surgically created Medication side effects Mitral valve annular calcification Morbidly obese Non compliance w medication regimen Non-healing non-surgical wound Nonrheumatic mitral valve stenosis with insufficiency Obstructive sleep apnea Pain of right lower extremity Paroxysmal atrial fibrillation (06/10/20) Paroxysmal atrial flutter 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) Pelvic mass Postoperative complete heart block (08/21/21) Sepsis Thrombosis of kidney dialysis arteriovenous graft Unspecified symptoms and signs involving cognitive functions and awareness (04/05/20) Home Medications BP monitor #1 ea 07/17/21 [Rx Last Taken Unknown] aspirin 81 mg tablet,delayed release (Adult Aspirin Regimen) 81 mg PO DAILY 10/29/21 [History Last Taken Unknown] midodrine 10 mg tablet 10 mg PO TID 10/29/21 [History Last Taken Unknown] warfarin 2 mg tablet 4 mg PO DAILY 04/30/22 [History Last Taken Unknown] sevelamer carbonate 800 mg tablet 800 mg PO TID 06/25/22 [History Last Taken Unknown] oxycodone 5 mg tablet 5 mg PO Q6H PRN pain 3 days #12 tabs 09/20/22 [Rx Last Taken Unknown] Allergy/AdvReac Type Severity Reaction Status Date / Time gabapentin Allergy Other Verified 09/20/22 18:55 Family History Other Adopted Surgical History History of angioplasty of peripheral vessel (08/28/21) History of cardioversion (12/02/18) history of cather replacement History of herniorrhaphy History of left heart catheterization (09/17/18) History of mitral valve replacement with bioprosthetic valve (08/21/21) History of repair of congenital cleft palate History of right and left heart catheterization (08/16/21) History of tooth extraction, class IV edentulism (09/11/21) Hx of mitral valve replacement Mechanical complication of dialysis catheter Status post creation of arteriovenous fistula Social History household members: none Smoking Status: Never smoker alcohol intake: never substance use type: marijuana what type of physical activity do you participate in: none ROS ROS ED Constitutional Constitutional ED: Denies chills or fever(s) Eyes Eyes: Denies change in vision ENT ENT ED: Denies sore throat Cardiovascular Cardiovascular: Denies chest pain or palpitations Respiratory/Chest Respiratory/Chest: Denies cough or dyspnea Gastrointestinal Gastrointestinal: Denies abdominal pain or vomiting Musculoskeletal Musculoskeletal: Reports other Details: left arm pain Integumentary Denies rash Neurologic Neurologic: Denies paresthesias or weakness Psychiatric Psychiatric: Denies anxiety Hematologic/Lymphatic Hematologic/Lymphatic: Reports easy bleeding and easy bruising EXAM Physical Exam Const Vital Signs: 09/20/22 18:53 Temperature 97.3 F L Temperature Source Temporal Pulse Rate 84 Respiratory Rate 16 Blood Pressure 138/75 H Blood Pressure Mean 96 Pulse Ox 96 Oxygen Delivery Method Room Air Positive well nourished and well developed General Appearance ED: well developed and NAD HEENT normocephalic and atraumatic Eyes PERRL and EOMs intact bilaterally Neck full ROM and supple Chest Wall inspection of chest normal and palpation of chest normal Resp normal respiratory effort and clear to auscultation bilaterally Cardio regular rate and regular rhythm Cardio Narrative: Audible click secondary to mechanical valve, old AV fistulas in the bilateral upper extremities GI non-tender and non-distended Extremity Extremity Narrative: Soft tissue swelling of the distal biceps with associated tenderness palpation. Patient is pretty diffuse tenderness palpation of the ventral aspect of his humerus. No bony tenderness. Pain is worse with movement. No palpable mass appreciated. No overlying skin changes. Neuro oriented x3, moves all extremities and no focal motor deficits Psych mental status grossly normal Skin Rashes: no rashes Trauma: no lacerations or abrasions MDM MDM MDM Narrative Medical decision making narrative: Patient is evaluated for atraumatic pain and swelling of his left distal biceps area. He is neuro vastly intact. No palpable mass. Low suspicion for pseudoaneurysm. Bedside ultrasound performed by myself which does not show any acute vascular abnormalities or active bleeding. There is what appears to be some soft tissue swelling and not sure if this is associated with bicep tendon injury or hematoma. Lower suspicion for AV malformation, compartment syndrome or fracture. No overlying skin changes consistent with cellulitis or abscess. Patient is given an oxycodone for pain control, placed in an Wenceslao wrap for compression and given a sling. Is given outpatient orthopedic follow-up. Cannot have NSAIDs secondary to end-stage renal disease and has already been trying Tylenol with no relief. Given return precautions. Discharged home in stable condition. Discharge Plan Triage Chief Complaint: Upper Extremity Injury ED Provider: Lesly Casas Dx/Rx/DC Orders Clinical Impression: Pain in left upper arm, Injury of tendon of biceps Instructions: ED Bandage Elastic Wrap, ED RICE Prescriptions: New oxycodone 5 mg tablet 5 mg PO Q6H PRN (Reason: pain) 3 Days Qty: 12 0RF No Action aspirin [Adult Aspirin Regimen] 81 mg tablet,delayed release (DR/EC) 81 mg PO DAILY midodrine 10 mg tablet 10 mg PO TID warfarin 2 mg tablet 4 mg PO DAILY sevelamer carbonate 800 mg tablet 800 mg PO TID Label Comments: TAKE 3 TABLETS BY MOUTH THREE TIMES DAILY WITH MEALS (DME) BP monitor large cuff See Rx Instructions .Route .MEDSUPPLY Qty: 1 0RF Rx Instructions: As directed Primary Care Provider: Care Physician,No Primary Referrals: Matt Agn MD [Med Staff - Active Staff] - As soon as possible Care Physician,No Primary [Primary Care Provider] - Activity Restrictions/Additional Instructions: Apply compression with Wenceslao wrap daily to your arm. I suspect you have an injury of your bicep tendon or one of the muscles in your arm. This could be causing some deeper bruising especially as you are on Coumadin therapy. Please follow- up with orthopedics. Ice the area. Return if you have worsening symptoms develop numbness, tingling or have further concerns. Disposition Disposition: Home, Self Care Discharge Date/Time: 09/20/22 20:09
[2022-09-20] MEDS: oxyCODONE 5 MG Tablet PO (19:49)
== END 2022-09-20 20:09 | disposition home or self-care (01) ==
PROVIDERS: Emergency Provider Emergency Medicine; Visit Provider Emergency Medicine
DX: M79.622 Pain in left upper arm (principal); Z99.2 Dependence on renal dialysis; N18.6 End stage renal disease; I48.0 Paroxysmal atrial fibrillation; S46.201A Unspecified injury of muscle, fascia and tendon of other parts of biceps, right arm, initial encounter; F12.90 Cannabis use, unspecified, uncomplicated; I25.2 Old myocardial infarction; G47.33 Obstructive sleep apnea (adult) (pediatric); Z86.16 Personal history of COVID-19; Z86.711 Personal history of pulmonary embolism; Z79.82 Long term (current) use of aspirin; Z79.01 Long term (current) use of 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s; X58.XXXA Exposure to other specified factors, initial encounter
CPT/HCPCS: 99283

== ENCOUNTER 2022-10-04 08:10 | Outpatient (RCR) | payer MEDICARE, MEDICAID, SELFPAY ==
[2022-10-04 09:39] LABS: International Normalized Ratio 1.7; Prothrombin Time (Protime)PT. 19.3 SECONDS (11.7-14.9)
== END 2022-10-04 09:00 | disposition home or self-care (01) ==
LOC: LAB 08:10
PROVIDERS: Referring Provider Internal Medicine Cardiovascular Disease; Visit Provider Internal Medicine Cardiovascular Disease
DX: I48.0 Paroxysmal atrial fibrillation (principal); I48.92 Unspecified atrial flutter; Z79.01 Long term (current) use of 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s; N18.6 End stage renal disease
CPT/HCPCS: 36415; 85610

== ENCOUNTER 2022-10-18 21:40 | Emergency (ER) | payer MEDICARE, SELFPAY ==
[2022-10-18 21:41] VITALS: BP 106/81; PULSE 111; RESP 16; RESP 18; TEMP 35.7; BMI 35.4
--- NOTE | 2022-10-18 22:08 | CT_ITS ---
INDICATION: Abdominal wound EXAMINATION: CT ABDOMEN AND PELVIS WITHOUT CONTRAST - CT Abdomen And Pelvis W/O Contrast Injection TECHNIQUE: Helically acquired images were obtained of the abdomen and pelvis without oral or IV contrast. A radiation dose optimization technique was used for this scan. IV Contrast dosage and agent: None. Oral contrast: None. COMPARISON: None. FINDINGS: LOWER CHEST: Lung bases are clear. No cardiomegaly or pericardial effusion. LIVER: Homogeneous. No focal mass. GALLBLADDER AND BILIARY TREE: No calcified gallstones. No gallbladder distension or wall edema. No intra- or extrahepatic biliary ductal dilation. PANCREAS: No focal cystic or solid mass. SPLEEN: Normal size without focal cystic or solid mass. ADRENAL GLANDS: No nodules. KIDNEYS AND URETERS: Numerous bilateral renal cysts. No hydronephrosis. PERITONEUM: No ascites or free air. No other fluid collection. BOWEL: No evidence of acute appendicitis. No stomach or bowel distension. No focal inflammatory change. LYMPH NODES: No enlarged mesenteric or retroperitoneal lymph nodes. VESSELS: Aorta is non-dilated. URINARY BLADDER: Unremarkable. REPRODUCTIVE ORGANS: No pelvic masses. ABDOMINAL WALL: Innumerable predominantly anterior abdominal wall subcutaneous varices. Anterior abdominal wall abandoned epicardial leads. BONES: 6.9 x 3.6 x 4.3 cm heavily calcified mass near the pubic symphysis with lysis of the right more than left pubic bone. A similar appearing lesion in the right sacroiliac joint measures up to 5.2 cm, and in the left sacroiliac joint measures up to 2.4 cm. A similar lesion in the L4 spinous process measures up to 2.1 cm. These lesions are first described on report from 08/30/[address]/Abdomen/Pelvis without Cont IMPRESSION: 1. Innumerable abdominal wall subcutaneous varices. 2. Anterior abdominal wall abandoned epicardial leads. 3. No other acute abnormal finding in the abdomen or pelvis. Electronically Signed: Alvaro Dickson MD at 22:57 EST ,
[2022-10-18] MEDS: Doxycycline 100 MG CAPSULE PO (22:18)
[2022-10-18] MEDS: oxyCODONE 5 MG Tablet 10 MG PO (22:18)
--- NOTE | 2022-10-18 22:27 | EDS_ITS ---
HPI History of Present Illness Chief Complaint: Wound Narrative Narrative: Patient is a 42-year-old male with past medical history of chronic renal disease on dialysis with nonrheumatic heart disease leading to need for mitral valve replacement and currently on Coumadin. He states that over the past 3 to 5 days he has noticed painful lesions along his lower abdomen. He states there are 2 present. He reports has been no recent trauma and he denies any fevers or chills or discharge from the area. He states it is painful in nature and the one area/wound feels firm. 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) Central retinal artery occlusion of left eye (10/09/20) Chronic kidney disease-mineral and bone disorder Chronic pelvic pain in male Chronic ulcer of back COVID-19 virus detected (10/02/21) Daily headache Dental caries Dialysis AV fistula malfunction Dialysis patient ESRD on hemodialysis Essential (primary) hypertension Expressive aphasia (04/05/20) Hearing loss Hematuria History of bacterial endocarditis History of blood clots History of non-ST elevation myocardial infarction (NSTEMI) (11/08/19) History of pulmonary embolus (PE) History of venous thromboembolism 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 due to renal insufficiency Hypotension of hemodialysis 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 senior living current use of 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 Mechanical complication of arteriovenous fistula surgically created Medication side effects Mitral valve annular calcification Morbidly obese Non compliance w medication regimen Non-healing non-surgical wound Nonrheumatic mitral valve stenosis with insufficiency Obstructive sleep apnea Pain of right lower extremity Paroxysmal atrial fibrillation (06/10/20) Paroxysmal atrial flutter 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) Pelvic mass Postoperative complete heart block (08/21/21) Sepsis Thrombosis of kidney dialysis arteriovenous graft Unspecified symptoms and signs involving cognitive functions and awareness (04/05/20) Home Medications BP monitor #1 ea 07/17/21 [Rx Last Taken Unknown] aspirin 81 mg tablet,delayed release (Adult Aspirin Regimen) 81 mg PO DAILY 10/29/21 [History Last Taken Unknown] midodrine 10 mg tablet 10 mg PO TID 10/29/21 [History Last Taken Unknown] warfarin 2 mg tablet 4 mg PO DAILY 04/30/22 [History Last Taken Unknown] sevelamer carbonate 800 mg tablet 800 mg PO TID 06/25/22 [History Last Taken Unknown] oxycodone 5 mg tablet 5 mg PO Q6H PRN pain 3 days #12 tabs 09/20/22 [Rx Last Taken Unknown] doxycycline monohydrate 100 mg capsule 100 mg PO BID #14 caps 10/19/22 [Rx Last Taken Unknown] oxycodone-acetaminophen 5 mg-325 mg tablet (Percocet) 1 tab PO Q6H PRN pain 3 days #12 tabs 10/19/22 [Rx Last Taken Unknown] zinc oxide-petrolatum 20 %-51 % topical paste (Critic-Aid) 1 applic topical DAILY #852 grams 10/19/22 [Rx Last Taken Unknown] Allergy/AdvReac Type Severity Reaction Status Date / Time gabapentin Allergy Other Verified 09/20/22 18:55 Family History Other Adopted Surgical History History of angioplasty of peripheral vessel (08/28/21) History of cardioversion (12/02/18) history of cather replacement History of herniorrhaphy History of left heart catheterization (09/17/18) History of mitral valve replacement with bioprosthetic valve (08/21/21) History of repair of congenital cleft palate History of right and left heart catheterization (08/16/21) History of tooth extraction, class IV edentulism (09/11/21) Hx of mitral valve replacement Mechanical complication of dialysis catheter Status post creation of arteriovenous fistula Social History household members: none Smoking Status: Never smoker alcohol intake: never substance use type: marijuana what type of physical activity do you participate in: none ROS ROS ED Constitutional Constitutional ED: Denies chills or fever(s) ENT ENT ED: Denies sore throat Cardiovascular Cardiovascular: Denies chest pain Respiratory/Chest Respiratory/Chest: Denies cough or dyspnea Gastrointestinal Gastrointestinal: Reports abdominal pain; Denies diarrhea, nausea or vomiting Musculoskeletal Musculoskeletal: Denies myalgias Integumentary Reports other Details: Positive abdominal wounds Neurologic Neurologic: Denies headache(s) Hematologic/Lymphatic Hematologic/Lymphatic: Reports easy bleeding and easy bruising EXAM Physical Exam Const Vital Signs: 10/18/22 21:41 10/18/22 21:41 Temperature 96.2 F L 96.2 F L Temperature Source Temporal Temporal Pulse Rate 111 H 111 H Respiratory Rate 16 18 Blood Pressure 106/81 H 106/81 H Blood Pressure Mean 89 89 Positive well nourished, well developed and obese General Appearance ED: well developed Nutritional Appearance: obese Eyes PERRL and EOMs intact bilaterally Eyes Narrative: Patient does have chronic changes of the left eye secondary to previous retinal artery occlusion Neck supple Resp normal respiratory effort and clear to auscultation bilaterally Cardio regular rate and regular rhythm Rate: other Other Details: Patient does have a midsystolic click consistent with his history of mitral valve replacement GI non-distended GI Narrative: Abdomen is soft and nondistended with normoactive bowel sounds. Patient has 2 wounds along the abdomen 1 along the left midline and the other along the left lateral lower abdomen. Both wounds are approximate 1 cm in size and dermal layer deep without surrounding redness or warmth. There is no purulent discharge present or lymphangitic streaking noted. The wound along the left lower lateral abdomen does have an area of induration surrounding it concerning for possible developing infection. The remainder of the abdomen is soft without voluntary guarding or rigidity or pulsatile mass. No fluid wave noted Auscultation: normoactive bowel sounds Palpation: soft Extremity Extremity Narrative: Patient has a fistula in his right upper leg with palpable thrill and good bruit Neuro oriented x3 and CN's II-XII intact bilaterally Sensorium / Orientation: alert Psych mental status grossly normal Skin Skin Narrative: Lesions to the abdomen/wounds as documented above MDM MDM MDM Narrative Medical decision making narrative: Patient presented to the ER with stable vitals and his abdominal exam showed wounds that did not show any active discharge or lymphangitic streaking. However the area along the left lower lateral abdominal wall had an area of induration surrounding it concerning for possible developing abscess. There is also warmth associated with the wounds and secondary to this I have concern for developing infection. As vitals are stable and there is no signs of systemic infection I felt no need for lab work but a noncontrast CT was obtained to check for possible drainable fluid collection in the abdominal wall. CT scan showed no such finding. Therefore at this time patient does not need incision and drainage and as there is no signs of systemic infection he does not need inpatient treatment or IV antibiotics. Patient will be given oral antibiotics secondary to the wounds with changes concerning for developing infection. He will be referred to wound care as they feel these wounds are more chronic in nature secondary to decreased blood flow to the periphery secondary to his chronic illnesses. However at this time as he has no drainable fluid collection no signs systemic infection and stable vitals there is no need for further work- up and he is otherwise safe for discharge Radiography Diagnostic Testing: Clinical Impression(s) from Imaging Studies Abdomen/Pelvis CT 10/18/22 22:08 IMPRESSION: 1. Innumerable abdominal wall subcutaneous varices. 2. Anterior abdominal wall abandoned epicardial leads. 3. No other acute abnormal finding in the abdomen or pelvis. 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, Paroxysmal atrial fibrillation Instructions: ED Wound Care Prescriptions: New doxycycline monohydrate 100 mg capsule 100 mg PO BID Qty: 14 0RF Critic-Aid 20-51 % paste 1 applic topical DAILY Qty: 852 0RF oxycodone-acetaminophen [Percocet] 5-325 mg tablet 1 tab PO Q6H PRN (Reason: pain) 3 Days Qty: 12 0RF No Action aspirin [Adult Aspirin Regimen] 81 mg tablet,delayed release (DR/EC) 81 mg PO DAILY midodrine 10 mg tablet 10 mg PO TID warfarin 2 mg tablet 4 mg PO DAILY Protocol: Dose Management Condition: Friday Dose/Route: 4 mg Instruction: 2 x 2 mg tablets Condition: Friday Dose/Route: 4 mg Instruction: 2 x 2 mg tablets Condition: Friday Dose/Route: 4 mg Instruction: 2 x 2 mg tablets Condition: Friday Dose/Route: 4 mg Instruction: 2 x 2 mg tablets Condition: Dose/Route: 4 mg Instruction: 2 x 2 mg tablets Condition: Friday Dose/Route: 6 mg Instruction: 3 x 2 mg tablets Condition: Friday Dose/Route: 4 mg Instruction: 2 x 2 mg tablets Protocol Text: Adjustment Start Date: Friday10/07/22 INR Value: 1.7 INR Date: 10/04/22 Recheck Date: 10/14/22 sevelamer carbonate 800 mg tablet 800 mg PO TID Label Comments: TAKE 3 TABLETS BY MOUTH THREE TIMES DAILY WITH MEALS oxycodone 5 mg tablet 5 mg PO Q6H PRN (Reason: pain) 3 Days Qty: 12 0RF (DME) BP monitor large cuff See Rx Instructions .Route .MEDSUPPLY Qty: 1 0RF Rx Instructions: As directed Primary Care Provider: Care Physician,No Primary Referrals: Care Physician,No Primary [Primary Care Provider] - Activity Restrictions/Additional Instructions: Please follow-up with your family doctor and discuss need for wound care referral secondary to your abdominal wound. Please return to ER should you have any further concerns Disposition Disposition: Home, Self Care
== END 2022-10-19 00:25 | disposition home or self-care (01) ==
PROVIDERS: Emergency Provider Emergency Medicine; Visit Provider Emergency Medicine
DX: S31.109A Unspecified open wound of abdominal wall, unspecified quadrant without penetration into peritoneal cavity, initial encounter (principal); N18.6 End stage renal disease; I48.0 Paroxysmal atrial fibrillation; F12.90 Cannabis use, unspecified, uncomplicated; I25.2 Old myocardial infarction; G47.33 Obstructive sleep apnea (adult) (pediatric); Z86.16 Personal history of COVID-19; Z86.711 Personal history of pulmonary embolism; Z79.01 Long term (current) use of 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s; X58.XXXA Exposure to other specified factors, initial encounter
CPT/HCPCS: 74176; 99283

== ENCOUNTER 2022-11-04 15:24 | Outpatient (RCR) | payer MEDICARE, SELFPAY ==
[2022-10-31 17:01] LABS: Prothrombin Time (Protime)PT. 46.8 SECONDS (11.7-14.9)
[2022-10-31 17:08] LABS: International Normalized Ratio 5.1
[2022-11-04 16:49] LABS: International Normalized Ratio 2.1; Prothrombin Time (Protime)PT. 22.9 SECONDS (11.7-14.9)
== END 2022-11-04 18:00 | disposition home or self-care (01) ==
LOC: LAB 15:24
PROVIDERS: Referring Provider Internal Medicine Cardiovascular Disease; Visit Provider Internal Medicine Cardiovascular Disease
DX: I48.0 Paroxysmal atrial fibrillation (principal); I48.92 Unspecified atrial flutter; Z79.01 Long term (current) use of 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s; N18.6 End stage renal disease
CPT/HCPCS: 36415; 85610

== ENCOUNTER 2022-11-11 19:12 | Emergency (ER) | payer MEDICARE, SELFPAY ==
[2022-11-11 19:14] VITALS: BP 134/78; PULSE 106; RESP 18; TEMP 37.1; O2SAT 99; BMI 35.4
[2022-11-11] MEDS: Cephalexin 250 MG Capsule 500 MG PO (21:49)
[2022-11-11] MEDS: HYDROmorphone 1 MG/ML Syringe SC (21:49)
--- NOTE | 2022-11-11 21:49 | EX.ED.DYSGE1 ---
HPI History of Present Illness Chief Complaint: Abscess Narrative Narrative: Patient has a chronic abdominal wound. He tells me it is hurting more. He has a history of end-stage renal disease on dialysis and has had multiple wounds. No fevers or chills. He does not like the wound care at this facility and is try to get into another wound care. 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) Central retinal artery occlusion of left eye (10/09/20) Chronic kidney disease-mineral and bone disorder Chronic pelvic pain in male Chronic ulcer of back COVID-19 virus detected (10/02/21) Daily headache Dental caries Dialysis AV fistula malfunction Dialysis patient ESRD on hemodialysis Essential (primary) hypertension Expressive aphasia (04/05/20) Hearing loss Hematuria History of bacterial endocarditis History of blood clots History of non-ST elevation myocardial infarction (NSTEMI) (11/08/19) History of pulmonary embolus (PE) History of venous thromboembolism 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 due to renal insufficiency Hypotension of hemodialysis 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 Mechanical complication of arteriovenous fistula surgically created Medication side effects Mitral valve annular calcification Morbidly obese Non compliance w medication regimen Non-healing non-surgical wound Nonrheumatic mitral valve stenosis with insufficiency Obstructive sleep apnea Pain of right lower extremity Paroxysmal atrial fibrillation (06/10/20) Paroxysmal atrial flutter 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) Pelvic mass Postoperative complete heart block (08/21/21) Sepsis Thrombosis of kidney dialysis arteriovenous graft Unspecified symptoms and signs involving cognitive functions and awareness (04/05/20) Home Medications BP monitor #1 ea 07/17/21 [Rx Last Taken Unknown] aspirin 81 mg tablet,delayed release (Adult Aspirin Regimen) 81 mg PO DAILY 10/29/21 [History Last Taken Unknown] midodrine 10 mg tablet 10 mg PO TID 10/29/21 [History Last Taken Unknown] warfarin 2 mg tablet 4 mg PO DAILY 04/30/22 [History Last Taken Unknown] sevelamer carbonate 800 mg tablet 800 mg PO TID 06/25/22 [History Last Taken Unknown] oxycodone 5 mg tablet 5 mg PO Q6H PRN pain 3 days #12 tabs 09/20/22 [Rx Last Taken Unknown] doxycycline monohydrate 100 mg capsule 100 mg PO BID #14 caps 10/19/22 [Rx Last Taken Unknown] oxycodone-acetaminophen 5 mg-325 mg tablet (Percocet) 1 tab PO Q6H PRN pain 3 days #12 tabs 10/19/22 [Rx Last Taken Unknown] zinc oxide-petrolatum 20 %-51 % topical paste (Critic-Aid) 1 applic topical DAILY #852 grams 10/19/22 [Rx Last Taken Unknown] cephalexin 500 mg capsule 500 mg PO Q6 #40 CAPSULES 11/11/22 [Rx Last Taken Unknown] Allergy/AdvReac Type Severity Reaction Status Date / Time gabapentin Allergy Other Verified 11/11/22 19:15 Family History Other Adopted Surgical History History of angioplasty of peripheral vessel (08/28/21) History of cardioversion (12/02/18) history of cather replacement History of herniorrhaphy History of left heart catheterization (09/17/18) History of mitral valve replacement with bioprosthetic valve (08/21/21) History of repair of congenital cleft palate History of right and left heart catheterization (08/16/21) History of tooth extraction, class IV edentulism (09/11/21) Hx of mitral valve replacement Mechanical complication of dialysis catheter Status post creation of arteriovenous fistula Social History household members: none Smoking Status: Never smoker alcohol intake: never substance use type: marijuana what type of physical activity do you participate in: none ROS ROS ED ROS Narrative Review of systems: All systems negative except as indicated General: No fever Cardiovascular: No chest pain Respiratory: No shortness of breath or cough Gastrointestinal: Abdominal wound Genitourinary: No dysuria Musculoskeletal: Denies any other myalgias no difficulty with ambulation Skin: Wounds as above EXAM Physical Exam Narrative Exam Narrative: Physical exam General: Well nourished, Well developed, No Acute Distress Neck: Supple, Nontender, No lymphadenopathy Cardiovascular: Regular rate, Regular rhythm Respiratory: No distress, CTA bilaterally Abdomen: Soft, there are 2 wounds on his lower abdomen, both have granulation tissue there is no signs of cellulitis present. The wounds are healing quite well. Back: Nontender, Normal Inspection. Negative for: CVA tenderness Extremities: Nontender, palpable thrill from the AV fistula in the right lower extremity Skin: Normal color, No rash Const Vital Signs: 11/11/22 19:14 Temperature 98.7 F Temperature Source Temporal Pulse Rate 106 H Respiratory Rate 18 Blood Pressure 134/78 H Blood Pressure Mean 96 Pulse Ox 99 Oxygen Delivery Method Room Air MDM MDM MDM Narrative Medical decision making narrative: Patient has wounds that appear quite well. I do not believe blood work is needed I thought about his CBC is looked well his electrolytes but he has been going to his dialysis and has no vital abnormalities. I will treat him with antibiotics in case he has a slight cellulitis or developing infection. Otherwise he can follow-up with wound care as needed. Discharge Plan Triage Chief Complaint: Abscess ED Provider: Alvaro Chambers Dx/Rx/DC Orders Clinical Impression: Encounter for wound re-check, End stage kidney disease Instructions: Wound Care Prescriptions: New cephalexin 500 mg capsule 500 mg PO Q6 Qty: 40 0RF No Action aspirin [Adult Aspirin Regimen] 81 mg tablet,delayed release (DR/EC) 81 mg PO DAILY midodrine 10 mg tablet 10 mg PO TID warfarin 2 mg tablet 4 mg PO DAILY Protocol: Dose Management Condition: Friday Dose/Route: 4 mg Instruction: 2 x 2 mg tablets Condition: Friday Dose/Route: 4 mg Instruction: 2 x 2 mg tablets Condition: Friday Dose/Route: 4 mg Instruction: 2 x 2 mg tablets Condition: Friday Dose/Route: 4 mg Instruction: 2 x 2 mg tablets Condition: Dose/Route: 4 mg Instruction: 2 x 2 mg tablets Condition: Friday Dose/Route: 2 mg Instruction: 1 x 2 mg tablet Condition: Friday Dose/Route: 2 mg Instruction: 1 x 2 mg tablet Protocol Text: Adjustment Start Date: Friday11/04/22 INR Value: 2.1 INR Date: 11/04/22 Recheck Date: 11/11/22 sevelamer carbonate 800 mg tablet 800 mg PO TID Label Comments: TAKE 3 TABLETS BY MOUTH THREE TIMES DAILY WITH MEALS oxycodone 5 mg tablet 5 mg PO Q6H PRN (Reason: pain) 3 Days Qty: 12 0RF doxycycline monohydrate 100 mg capsule 100 mg PO BID Qty: 14 0RF Critic-Aid 20-51 % paste 1 applic topical DAILY Qty: 852 0RF oxycodone-acetaminophen [Percocet] 5-325 mg tablet 1 tab PO Q6H PRN (Reason: pain) 3 Days Qty: 12 0RF (DME) BP monitor large cuff See Rx Instructions .Route .MEDSUPPLY Qty: 1 0RF Rx Instructions: As directed Primary Care Provider: Care Physician,No Primary Referrals: Care Physician,No Primary [Primary Care Provider] - 3-5 Days Disposition Disposition: Home, Self Care
== END 2022-11-11 22:09 | disposition home or self-care (01) ==
PROVIDERS: Emergency Provider Emergency Medicine; Visit Provider Emergency Medicine
DX: L02.211 Cutaneous abscess of abdominal wall (principal); Z99.2 Dependence on renal dialysis; N18.6 End stage renal disease; F12.90 Cannabis use, unspecified, uncomplicated; I25.2 Old myocardial infarction; G47.33 Obstructive sleep apnea (adult) (pediatric); Z86.16 Personal history of COVID-19; Z86.711 Personal history of pulmonary embolism; Z86.718 Personal history of other venous thrombosis and embolism
CPT/HCPCS: 96374; 99283

== ENCOUNTER 2022-11-21 17:15 | Emergency (ER) | payer MEDICARE, MEDICAID, SELFPAY ==
[2022-11-21 17:16] VITALS: BP 100/77; PULSE 82; RESP 16; TEMP 37; O2SAT 100; BMI 37.0
--- NOTE | 2022-11-21 17:35 | EDS_ITS ---
HPI History of Present Illness Chief Complaint: Wound Detail of Chief Complaint: Abdominal wound/abdominal pain Informant: patient Narrative Narrative: Patient presents the emergency department complaint of abdominal pain and an abdominal wound that has had for about a month. Patient states that this is his fourth visit to the ER and he is currently on antibiotics. He has 2 wounds 1 of which is smaller not bothering him but the larger one is painful and does not seem to be wanting to heal. He complains of pain with certain movements. Has had no fever. He had no vomiting. He denies any trauma to his abdomen. Patient is a dialysis patient. Patient on Coumadin. 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) Central retinal artery occlusion of left eye (10/09/20) Chronic kidney disease-mineral and bone disorder Chronic pelvic pain in male Chronic ulcer of back COVID-19 virus detected (10/02/21) Daily headache Dental caries Dialysis AV fistula malfunction Dialysis patient ESRD on hemodialysis Essential (primary) hypertension Expressive aphasia (04/05/20) Hearing loss Hematuria History of bacterial endocarditis History of blood clots History of non-ST elevation myocardial infarction (NSTEMI) (11/08/19) History of pulmonary embolus (PE) History of venous thromboembolism 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 due to renal insufficiency Hypotension of hemodialysis 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 custodial current use of 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 Mechanical complication of arteriovenous fistula surgically created Medication side effects Mitral valve annular calcification Morbidly obese Non compliance w medication regimen Non-healing non-surgical wound Nonrheumatic mitral valve stenosis with insufficiency Obstructive sleep apnea Pain of right lower extremity Paroxysmal atrial fibrillation (06/10/20) Paroxysmal atrial flutter 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) Pelvic mass Postoperative complete heart block (08/21/21) Sepsis Thrombosis of kidney dialysis arteriovenous graft Unspecified symptoms and signs involving cognitive functions and awareness (04/05/20) Home Medications BP monitor #1 ea 07/17/21 [Rx Last Taken Unknown] aspirin 81 mg tablet,delayed release (Adult Aspirin Regimen) 81 mg PO DAILY 10/29/21 [History Last Taken Unknown] midodrine 10 mg tablet 10 mg PO TID 10/29/21 [History Last Taken Unknown] warfarin 2 mg tablet 4 mg PO DAILY 04/30/22 [History Last Taken Unknown] sevelamer carbonate 800 mg tablet 800 mg PO TID 06/25/22 [History Last Taken Unknown] oxycodone 5 mg tablet 5 mg PO Q6H PRN pain 3 days #12 tabs 09/20/22 [Rx Last Taken Unknown] doxycycline monohydrate 100 mg capsule 100 mg PO BID #14 caps 10/19/22 [Rx Last Taken Unknown] oxycodone-acetaminophen 5 mg-325 mg tablet (Percocet) 1 tab PO Q6H PRN pain 3 days #12 tabs 10/19/22 [Rx Last Taken Unknown] zinc oxide-petrolatum 20 %-51 % topical paste (Critic-Aid) 1 applic topical DAILY #852 grams 10/19/22 [Rx Last Taken Unknown] cephalexin 500 mg capsule 500 mg PO Q6 #40 CAPSULES 11/11/22 [Rx Last Taken Unknown] hydrocodone-acetaminophen 5-325mg 5mg-325mg 1 tab PO Q4H PRN PRN Pain 2 days #10 TABLETS 11/21/22 [Rx Last Taken Unknown] Allergy/AdvReac Type Severity Reaction Status Date / Time gabapentin Allergy Other Verified 11/21/22 17:18 Family History Other Adopted Surgical History History of angioplasty of peripheral vessel (08/28/21) History of cardioversion (12/02/18) history of cather replacement History of herniorrhaphy History of left heart catheterization (09/17/18) History of mitral valve replacement with bioprosthetic valve (08/21/21) History of repair of congenital cleft palate History of right and left heart catheterization (08/16/21) History of tooth extraction, class IV edentulism (09/11/21) Hx of mitral valve replacement Mechanical complication of dialysis catheter Status post creation of arteriovenous fistula Social History household members: none Smoking Status: Never smoker alcohol intake: never substance use type: marijuana what type of physical activity do you participate in: none ROS ROS ED Review of Systems ROS Unobtainable: other Constitutional Constitutional ED: Reports lethargy; Denies chills, fever(s), sweats or weight loss Eyes Eyes: Denies blurry vision, change in vision or diplopia ENT ENT ED: Denies rhinorrhea or sore throat Cardiovascular Cardiovascular: Denies chest pain, orthopnea or racing heartbeat Respiratory/Chest Respiratory/Chest: Denies cough, dyspnea, dyspnea on exertion, orthopnea or sputum Gastrointestinal Gastrointestinal: Reports abdominal pain; Denies diarrhea, nausea or vomiting Genitourinary Genitourinary ED: Denies dysuria, hematuria or urinary frequency Musculoskeletal Musculoskeletal: Denies arthralgias, back pain, myalgias or neck pain Integumentary Reports other Details: Nonhealing wound left lower abdomen ; Denies abscess, Abrasions or rash Neurologic Neurologic: Denies headache(s) or weakness Psychiatric Psychiatric: Denies anxiety, depression or suicidal thoughts Endocrine Endocrinology: Denies polydipsia, polyphagia or polyuria Hematologic/Lymphatic Hematologic/Lymphatic: Denies easy bleeding, easy bruising or lymphadenopathy Allergic/Immunologic Allergic/Immunologic ED: Denies mouth swelling, tongue swelling or urticaria EXAM Physical Exam Const Vital Signs: 11/21/22 17:16 Temperature 98.6 F Temperature Source Temporal Pulse Rate 82 Respiratory Rate 16 Blood Pressure 100/77 Blood Pressure Mean 84 Pulse Ox 100 Oxygen Delivery Method Room Air Positive well nourished and well developed General Appearance ED: well developed and NAD HEENT Reports TM's clear and moist mucous membranes normocephalic and atraumatic; Negative for trauma or tenderness Tympanic Membrane ED: Yes TM's clear Eyes PERRL and EOMs intact bilaterally General Eye ED: Negative for pale conjunctiva or scleral icterus Neck no lymphadenopathy, supple and no JVD General: Negative for tenderness Chest Wall inspection of chest normal and palpation of chest normal Chest: Negative for tenderness Resp normal respiratory effort and clear to auscultation bilaterally Effort and Inspection: Negative for respiratory distress or pain with movement Auscultation: Negative for rhonchi, wheezes or diminished lung sounds Cardio regular rate, regular rhythm, S1 normal heart sound, S2 normal heart sound and no murmurs Peripheral Pulses: pulses 2+ throughout GI normal to inspection, nondistended, normoactive bowel sounds, soft to palpation, non-tender, non-distended and no masses GI Narrative: Evaluation of his abdomen reveals a wound on the left lower quadrant over this pannus that is indurated. There is excoriated skin and ulceration measuring approximately 5 x 3 cm. Area is tender to palpation. No significant purulent drainage noted. No significant cellulitic changes noted. Patient has a smaller wound measuring approximately 1 x 2 cm more medially to this other wound which seems like excoriated skin that is healing well and is nontender to exam. Back/Spine no CVA tenderness and no thoracic nor lumbar tenderness Extremity normal to inspection General Extremety ED: Negative for edema General Extremity: Negative for edema Neuro oriented x3, CN's II-XII intact bilaterally, no sensory deficits noted and gait normal Sensorium / Orientation: awake, alert, oriented to person, oriented to place and oriented to time Motor Exam: strength 5/5 throughout and strength abnormal Psych mental status grossly normal Skin no rashes or lesions noted and no wounds MDM MDM MDM Narrative Medical decision making narrative: Established on arrival. Patient was medicated morphine and Zofran. CBC with differential showed a normal white count. Chemistries unremarkable. BUN was 42 and creatinine 8.83 which is his chronic level given his dialysis and he is scheduled for dialysis tomorrow. Potassium was slightly elevated 5.5. INR was 2.5. Patient had a CT scan of the abdomen and pelvis which did not show any evidence of abscess or deep-seated infection. I did perform a wound culture. Patient to continue with his current antibiotics until culture results return. Patient also was referred to wound center for the chronic wound. Lab Data Attestation: I reviewed the patient's lab results. Labs: Laboratory Results - last 24 hr 11/21/22 11/21/22 11/21/22 17:53 17:53 17:53 WBC 6.0 RBC 4.01 L Hgb 12.2 L Hct 39.1 L MCV 97.5 H MCH 30.4 MCHC 31.2 L RDW Std Deviation 58.9 H RDW Coeff of Lance 16.7 H Plt Count 219 MPV 10.5 Immature Gran % (Auto) 0.500 Neut % (Auto) 49.8 Lymph % (Auto) 24.0 Island % (Auto) 18.4 H Eos % (Auto) 6.5 H Baso % (Auto) 0.8 Absolute Neuts (auto) 3.0 Absolute Lymphs (auto) 1.44 Nucleated RBC % 0 PT 26.5 H INR 2.5 Sodium 136 Potassium 5.5 H Chloride 95 L Carbon Dioxide 29.0 Anion Gap 12 BUN 42 H Creatinine 8.83 H* Estim Creat Clear Calc 11.48 Est GFR (MDRD) Af Amer 9 L Est GFR (MDRD) Non-Af 7 L BUN/Creatinine Ratio 4.8 L Glucose 82 Lactic Acid Calcium 8.3 L 11/21/22 17:55 WBC RBC Hgb Hct MCV MCH MCHC RDW Std Deviation RDW Coeff of Lance Plt Count MPV Immature Gran % (Auto) Neut % (Auto) Lymph % (Auto) Island % (Auto) Eos % (Auto) Baso % (Auto) Absolute Neuts (auto) Absolute Lymphs (auto) Nucleated RBC % PT INR Sodium Potassium Chloride Carbon Dioxide Anion Gap BUN Creatinine Estim Creat Clear Calc Est GFR (MDRD) Af Amer Est GFR (MDRD) Non-Af BUN/Creatinine Ratio Glucose Lactic Acid 0.9 Calcium Radiography Diagnostic Testing: Clinical Impression(s) from Imaging Studies Abdomen/Pelvis CT 11/21/22 18:10 IMPRESSION: No acute findings in the abdomen or pelvis. Electronically Signed: Parker Rangel MD at 18:59 EST Reading Location ID and State: [address] [place] [address] Tel , Service support , Discharge Plan Triage Chief Complaint: Wound ED Provider: Dillon Restrepo Dx/Rx/DC Orders Clinical Impression: Chronic abdominal wound infection Instructions: ED Wound Check (Infection) Prescriptions: New hydrocodone-acetaminophen [hydrocodone-acetaminophen] 5-325 mg tablet 1 tab PO Q4H PRN PRN (Reason: Pain) 2 Days Qty: 10 0RF No Action aspirin [Adult Aspirin Regimen] 81 mg tablet,delayed release (DR/EC) 81 mg PO DAILY midodrine 10 mg tablet 10 mg PO TID warfarin 2 mg tablet 4 mg PO DAILY Protocol: Dose Management Condition: Friday Dose/Route: 4 mg Instruction: 2 x 2 mg tablets Condition: Friday Dose/Route: 4 mg Instruction: 2 x 2 mg tablets Condition: Friday Dose/Route: 4 mg Instruction: 2 x 2 mg tablets Condition: Friday Dose/Route: 4 mg Instruction: 2 x 2 mg tablets Condition: Dose/Route: 4 mg Instruction: 2 x 2 mg tablets Condition: Friday Dose/Route: 2 mg Instruction: 1 x 2 mg tablet Condition: Friday Dose/Route: 2 mg Instruction: 1 x 2 mg tablet Protocol Text: Adjustment Start Date: Friday11/04/22 INR Value: 2.1 INR Date: 11/04/22 Recheck Date: 11/11/22 sevelamer carbonate 800 mg tablet 800 mg PO TID Label Comments: TAKE 3 TABLETS BY MOUTH THREE TIMES DAILY WITH MEALS oxycodone 5 mg tablet 5 mg PO Q6H PRN (Reason: pain) 3 Days Qty: 12 0RF doxycycline monohydrate 100 mg capsule 100 mg PO BID Qty: 14 0RF Critic-Aid 20-51 % paste 1 applic topical DAILY Qty: 852 0RF oxycodone-acetaminophen [Percocet] 5-325 mg tablet 1 tab PO Q6H PRN (Reason: pain) 3 Days Qty: 12 0RF cephalexin 500 mg capsule 500 mg PO Q6 Qty: 40 0RF (DME) BP monitor large cuff See Rx Instructions .Route .MEDSUPPLY Qty: 1 0RF Rx Instructions: As directed Primary Care Provider: Care Physician,No Primary Referrals: Care Physician,No Primary [Primary Care Provider] - Disposition Disposition: Home, Self Care
[2022-11-21] MEDS: Ondansetron 4 MG/2 ML Vial IV (17:53)
[2022-11-21] MEDS: Morphine 4 MG/ML Syringe IV (17:53)
--- NOTE | 2022-11-21 18:10 | CT_ITS ---
INDICATION: abdominal wound EXAMINATION: CT ABDOMEN AND PELVIS WITHOUT CONTRAST - CT Abdomen And Pelvis W/O Contrast Injection TECHNIQUE: Helically acquired images were obtained of the abdomen and pelvis without oral or IV contrast. A radiation dose optimization technique was used for this scan. IV Contrast dosage and agent: None. Oral contrast: None. COMPARISON: 10/18/2022 FINDINGS: LOWER CHEST: Dependent changes left lung base. No cardiomegaly or pericardial effusion. LIVER: Homogeneous. No focal mass. GALLBLADDER AND BILIARY TREE: No calcified gallstones. No gallbladder distension or wall edema. No intra- or extrahepatic biliary ductal dilation. PANCREAS: No focal cystic or solid mass. SPLEEN: Normal size without focal cystic or solid mass. ADRENAL GLANDS: No nodules. KIDNEYS AND URETERS: Bilateral cortical cysts and small parenchymal calcifications. No hydronephrosis. PERITONEUM: No ascites or free air. BOWEL: Normal appendix. No stomach or bowel distension. No focal inflammatory change. LYMPH NODES: No enlarged mesenteric or retroperitoneal lymph nodes. VESSELS: Aorta is non-dilated. URINARY BLADDER: Nondistended. REPRODUCTIVE ORGANS: No pelvic masses. ABDOMINAL WALL: Innumerable venous collaterals. No focal fluid collections BONES: Stable. No acute or aggressive abnormalities. Stable calcified lesion adjacent to the right inferior pubic ramus, right SI joint and the L4 spinous process. CT/Abdomen/Pelvis without Cont IMPRESSION: No acute findings in the abdomen or pelvis. Electronically Signed: Parker Rangel MD at 18:59 EST ,
[2022-11-21 18:20] LABS: Absolute Lymphocyte Count 1.44 X10^3/uL (0.83-4.51); Basophil# 0.05 X10^3/uL; Basophil% 0.8 % (0-1); Eosinophil# 0.39 X10^3/uL; Eosinophils% 6.5 % (0-5); Hematocrit 39.1 % (40-54); Hemoglobin 12.2 g/dL (13.0-16.5); Lymphocyte # 1.44 X10^3/ul (0.83-4.51); Mean Corp Hgb Conc 31.2 g/dL (32-36); Mean Corpuscular Hgb 30.4 pg (27.0-32.0); Mean Corpuscular Volume 97.5 fL (80-94); Mean Platelet Vol. 10.5 fl (6.2-12.0); Monocyte% 18.4 % (0-10); NRBC Flagged by Analyzer 0 % (0-5); Neutrophil # 2.98 X10^3/uL (2.7-7.7); Neutrophil % 49.8 % (47-70); Platelet Count 219 K/mm3 (150-450); RBC Distribution Width CV 16.7 % (11.6-14.6); RBC Distribution Width SD 58.9 fl (35.1-43.9); Red Blood Count 4.01 M/mm3 (4.6-6.2)
[2022-11-21 18:38] LABS: Anion Gap 12 (5-15); BUN 42 mg/dL (7-18); BUN/Creat Ratio 4.8 RATIO (10-20); Calcium,Total 8.3 mg/dL (8.5-10.1); Chloride 95 mmol/L (98-107); Creatinine, Serum 8.83 mg/dL (0.70-1.30); EST Glomerular Filtration Rate 7 mL/min (>60); Est Glom Filt Rate - Afr Amer 9 mL/min (>60); Estimated Creatinine Clearance 11.48 ml/min; Glucose 82 mg/dL (74-106); Potassium 5.5 mmol/L (3.5-5.1); Sodium Level 136 mmol/L (136-145)
[2022-11-21 18:39] LABS: Lactic Acid 0.9 mmol/L (0.4-1.9)
[2022-11-21 18:46] LABS: International Normalized Ratio 2.5; Prothrombin Time (Protime)PT. 26.5 SECONDS (11.7-14.9)
[2022-11-21 19:20] VITALS: BP 135/71; PULSE 84; RESP 16; O2SAT 96
== END 2022-11-21 19:20 | disposition home or self-care (01) ==
PROVIDERS: Emergency Provider Emergency Medicine; Visit Provider Emergency Medicine
DX: S31.109A Unspecified open wound of abdominal wall, unspecified quadrant without penetration into peritoneal cavity, initial encounter (principal); Z99.2 Dependence on renal dialysis; N18.6 End stage renal disease; F12.90 Cannabis use, unspecified, uncomplicated; I25.2 Old myocardial infarction; G47.33 Obstructive sleep apnea (adult) (pediatric); Z86.16 Personal history of COVID-19; Z86.711 Personal history of pulmonary embolism; Z86.718 Personal history of other venous thrombosis and embolism; X58.XXXA Exposure to other specified factors, initial encounter
CPT/HCPCS: 74176; 80048; 83605; 85025; 85610; 87070; 87205; 96374; 96375; 99283; A4216; J2405

== ENCOUNTER 2023-01-27 21:44 | Emergency (ER) | payer MEDICARE, MEDICAID, SELFPAY ==
[2023-01-27 21:45] VITALS: BP 138/91; PULSE 111; RESP 16; TEMP 36.6; O2SAT 94; BMI 35.4
--- NOTE | 2023-01-27 22:29 | EX.ED.DYSGE1 ---
HPI History of Present Illness Chief Complaint: Cold Sx Narrative Narrative: 42-year-old male presents with URI type symptoms for the last few days. He states he has had a cough that is productive of phlegm, feels feverish, and has had runny nose. He is concerned mainly because his son was recently diagnosed with COVID today, and patient states he works for [employer], and does not want to return to work tomorrow if he has a possibility of having COVID and has been exposed. Essentially, he states he is here for COVID test. 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) Central retinal artery occlusion of left eye (10/09/20) Chronic kidney disease-mineral and bone disorder Chronic pelvic pain in male Chronic ulcer of back COVID-19 virus detected (10/02/21) Daily headache Dental caries Dialysis AV fistula malfunction Dialysis patient ESRD on hemodialysis Essential (primary) hypertension Expressive aphasia (04/05/20) Hearing loss Hematuria History of bacterial endocarditis History of blood clots History of non-ST elevation myocardial infarction (NSTEMI) (11/08/19) History of pulmonary embolus (PE) History of venous thromboembolism 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 due to renal insufficiency Hypotension of hemodialysis 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 senior living current use of 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 Mechanical complication of arteriovenous fistula surgically created Medication side effects Mitral valve annular calcification Morbidly obese Non compliance w medication regimen Non-healing non-surgical wound Nonrheumatic mitral valve stenosis with insufficiency Obstructive sleep apnea Pain of right lower extremity Paroxysmal atrial fibrillation (06/10/20) Paroxysmal atrial flutter 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) Pelvic mass Postoperative complete heart block (08/21/21) Sepsis Thrombosis of kidney dialysis arteriovenous graft Unspecified symptoms and signs involving cognitive functions and awareness (04/05/20) Home Medications BP monitor #1 ea 07/17/21 [Rx Last Taken Unknown] aspirin 81 mg tablet,delayed release (Adult Aspirin Regimen) 81 mg PO DAILY 10/29/21 [History Last Taken Unknown] midodrine 10 mg tablet 10 mg PO TID 10/29/21 [History Last Taken Unknown] warfarin 2 mg tablet 4 mg PO DAILY 04/30/22 [History Last Taken Unknown] sevelamer carbonate 800 mg tablet 800 mg PO TID 06/25/22 [History Last Taken Unknown] oxycodone 5 mg tablet 5 mg PO Q6H PRN pain 3 days #12 tabs 09/20/22 [Rx Last Taken Unknown] doxycycline monohydrate 100 mg capsule 100 mg PO BID #14 caps 10/19/22 [Rx Last Taken Unknown] oxycodone-acetaminophen 5 mg-325 mg tablet (Percocet) 1 tab PO Q6H PRN pain 3 days #12 tabs 10/19/22 [Rx Last Taken Unknown] zinc oxide-petrolatum 20 %-51 % topical paste (Critic-Aid) 1 applic topical DAILY #852 grams 10/19/22 [Rx Last Taken Unknown] cephalexin 500 mg capsule 500 mg PO Q6 #40 CAPSULES 11/11/22 [Rx Last Taken Unknown] hydrocodone-acetaminophen 5-325mg 5mg-325mg 1 tab PO Q4H PRN PRN Pain 2 days #10 TABLETS 11/21/22 [Rx Last Taken Unknown] Allergy/AdvReac Type Severity Reaction Status Date / Time gabapentin Allergy Other Verified 01/27/23 21:45 Family History Other Adopted Surgical History History of angioplasty of peripheral vessel (08/28/21) History of cardioversion (12/02/18) history of cather replacement History of herniorrhaphy History of left heart catheterization (09/17/18) History of mitral valve replacement with bioprosthetic valve (08/21/21) History of repair of congenital cleft palate History of right and left heart catheterization (08/16/21) History of tooth extraction, class IV edentulism (09/11/21) Hx of mitral valve replacement Mechanical complication of dialysis catheter Status post creation of arteriovenous fistula Social History household members: none Smoking Status: Never smoker alcohol intake: never substance use type: marijuana what type of physical activity do you participate in: none ROS ROS ED ROS Narrative Constitutional: Subjective fever, no chills. Give sick contact and son who was diagnosed with COVID today. HEENT: No sore throat. No neck pain. No loss of vision. Positive rhinorrhea. Cardiovascular: No chest pain. No palpitations. No pedal edema. Respiratory: Positive productive cough, occasional shortness of breath. Abdominal: No abdominal pain. No nausea. No vomiting. Genitourinary: No dysuria. No hematuria. Musculoskeletal: No myalgias. No arthralgias. Neurologic: No headaches. No dizziness. No lightheadedness. Skin: No rash. No change in color. Psychiatric: No depression. No anxiety. EXAM Physical Exam Narrative Exam Narrative: Afebrile. Vital signs noted. HEENT: Normocephalic. Atraumatic. PERRL, EOMI. Neck soft and supple. No point tenderness or step off. Cardiovascular: Regular rate and rhythm. No murmurs, rubs, or gallops appreciated. Respiratory: No tachypnea. Lungs clear to auscultation bilaterally. Gastrointestinal: Abdomen soft, nontender, with normoactive bowel sounds. No rebound or guarding. Neurological: Awake. Alert. Nonfocal, nonlateralizing. Skin: No rash. Normal color. No pallor. Musculoskeletal: No pedal edema. Full range of motion extremities. Const Vital Signs: 01/27/23 21:45 Temperature 98 F Temperature Source Temporal Pulse Rate 111 H Respiratory Rate 16 Blood Pressure 138/91 H Blood Pressure Mean 106 Pulse Ox 94 Oxygen Delivery Method Room Air MDM MDM MDM Narrative Medical decision making narrative: Patient has URI type symptoms. COVID and influenza swab was obtained and sent. Pulse ox is 94% on room air without evidence of hypoxia. I reviewed his respiratory swabs. They are negative for COVID, influenza A, and influenza B. At this point in time, I feel he can be discharged safely home with symptomatic treatment with [id number] medications, and follow-up to his primary care provider. Return instructions to the emergency department were reviewed. Disposition is discharged home in stable condition. Discharge Plan Triage Chief Complaint: Cold Sx ED Provider: Camilo Kramer Dx/Rx/DC Orders Clinical Impression: URI (upper respiratory infection), Encounter for screening for COVID-19 Instructions: ED URI, Viral, No Abx (Adult) Prescriptions: No Action aspirin [Adult Aspirin Regimen] 81 mg tablet,delayed release (DR/EC) 81 mg PO DAILY midodrine 10 mg tablet 10 mg PO TID warfarin 2 mg tablet 4 mg PO DAILY Protocol: Dose Management Condition: Friday Dose/Route: 4 mg Instruction: 2 x 2 mg tablets Condition: Friday Dose/Route: 4 mg Instruction: 2 x 2 mg tablets Condition: Friday Dose/Route: 4 mg Instruction: 2 x 2 mg tablets Condition: Friday Dose/Route: 4 mg Instruction: 2 x 2 mg tablets Condition: Dose/Route: 4 mg Instruction: 2 x 2 mg tablets Condition: Friday Dose/Route: 2 mg Instruction: 1 x 2 mg tablet Condition: Friday Dose/Route: 2 mg Instruction: 1 x 2 mg tablet Protocol Text: Adjustment Start Date: Friday11/04/22 INR Value: 2.1 INR Date: 11/04/22 Recheck Date: 11/11/22 sevelamer carbonate 800 mg tablet 800 mg PO TID Label Comments: TAKE 3 TABLETS BY MOUTH THREE TIMES DAILY WITH MEALS oxycodone 5 mg tablet 5 mg PO Q6H PRN (Reason: pain) 3 Days Qty: 12 0RF doxycycline monohydrate 100 mg capsule 100 mg PO BID Qty: 14 0RF Critic-Aid 20-51 % paste 1 applic topical DAILY Qty: 852 0RF oxycodone-acetaminophen [Percocet] 5-325 mg tablet 1 tab PO Q6H PRN (Reason: pain) 3 Days Qty: 12 0RF cephalexin 500 mg capsule 500 mg PO Q6 Qty: 40 0RF hydrocodone-acetaminophen [hydrocodone-acetaminophen] 5-325 mg tablet 1 tab PO Q4H PRN PRN (Reason: Pain) 2 Days Qty: 10 0RF (DME) BP monitor large cuff See Rx Instructions .Route .MEDSUPPLY Qty: 1 0RF Rx Instructions: As directed Primary Care Provider: Care Physician,No Primary Referrals: Care Physician,No Primary [Primary Care Provider] - Disposition Disposition: Home, Self Care
== END 2023-01-27 23:35 | disposition home or self-care (01) ==
PROVIDERS: Emergency Provider Emergency Medicine; Visit Provider Emergency Medicine
DX: J06.9 Acute upper respiratory infection, unspecified (principal); Z99.2 Dependence on renal dialysis; N18.6 End stage renal disease; F12.90 Cannabis use, unspecified, uncomplicated; I25.2 Old myocardial infarction; G47.33 Obstructive sleep apnea (adult) (pediatric); Z86.16 Personal history of COVID-19; Z86.711 Personal history of pulmonary embolism
CPT/HCPCS: 87428; 99282

== ENCOUNTER 2023-02-26 00:53 | Emergency (ER) | payer MEDICARE, MEDICAID, SELFPAY ==
[2023-02-26 00:54] VITALS: BP 142/75; PULSE 122; RESP 16; TEMP 38.3; O2SAT 95; BMI 37.2
[2023-02-26 01:01] VITALS: BP 124/75; PULSE 122; RESP 16; TEMP 38.3; O2SAT 95
[2023-02-26] MEDS: dexAMETHasone 10 MG/ML Vial PO.IVFORM (01:46)
[2023-02-26] MEDS: Acetaminophen 500 MG Tablet 1000 MG PO (01:46)
--- NOTE | 2023-02-26 03:23 | EX.ED.DYSGE1 ---
HPI History of Present Illness Chief Complaint: Cold Sx Informant: patient Narrative Narrative: Patient is a 42-year-old male with complex medical history of end-stage renal disease on dialysis with rheumatic heart disease requiring mitral valve replaced and history of complete heart block requiring pacemaker. He states he has had 1 day of sore throat with fever up to 101 at home. He states it hurts to swallow but denies any difficulty. He states that there is minimal congestion and denies any cough. He denies any vomiting or diarrhea. He denies any known sick contact. However because of the fever and his complex medical history is concern for infection and therefore comes in for evaluation. 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) Central retinal artery occlusion of left eye (10/09/20) Chronic kidney disease-mineral and bone disorder Chronic pelvic pain in male Chronic ulcer of back COVID-19 virus detected (10/02/21) Daily headache Dental caries Dialysis AV fistula malfunction Dialysis patient ESRD on hemodialysis Essential (primary) hypertension Expressive aphasia (04/05/20) Hearing loss Hematuria History of bacterial endocarditis History of blood clots History of non-ST elevation myocardial infarction (NSTEMI) (11/08/19) History of pulmonary embolus (PE) History of venous thromboembolism 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 due to renal insufficiency Hypotension of hemodialysis 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 Mechanical complication of arteriovenous fistula surgically created Medication side effects Mitral valve annular calcification Morbidly obese Non compliance w medication regimen Non-healing non-surgical wound Nonrheumatic mitral valve stenosis with insufficiency Obstructive sleep apnea Pain of right lower extremity Paroxysmal atrial fibrillation (06/10/20) Paroxysmal atrial flutter 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) Pelvic mass Postoperative complete heart block (08/21/21) Sepsis Thrombosis of kidney dialysis arteriovenous graft Unspecified symptoms and signs involving cognitive functions and awareness (04/05/20) Home Medications BP monitor #1 ea 07/17/21 [Rx Last Taken Unknown] aspirin 81 mg tablet,delayed release (Adult Aspirin Regimen) 81 mg PO DAILY 10/29/21 [History Last Taken Unknown] midodrine 10 mg tablet 10 mg PO TID 10/29/21 [History Last Taken Unknown] warfarin 2 mg tablet 4 mg PO DAILY 04/30/22 [History Last Taken Unknown] sevelamer carbonate 800 mg tablet 800 mg PO TID 06/25/22 [History Last Taken Unknown] oxycodone 5 mg tablet 5 mg PO Q6H PRN pain 3 days #12 tabs 09/20/22 [Rx Last Taken Unknown] doxycycline monohydrate 100 mg capsule 100 mg PO BID #14 caps 10/19/22 [Rx Last Taken Unknown] oxycodone-acetaminophen 5 mg-325 mg tablet (Percocet) 1 tab PO Q6H PRN pain 3 days #12 tabs 10/19/22 [Rx Last Taken Unknown] zinc oxide-petrolatum 20 %-51 % topical paste (Critic-Aid) 1 applic topical DAILY #852 grams 10/19/22 [Rx Last Taken Unknown] cephalexin 500 mg capsule 500 mg PO Q6 #40 CAPSULES 11/11/22 [Rx Last Taken Unknown] hydrocodone-acetaminophen 5-325mg 5mg-325mg 1 tab PO Q4H PRN PRN Pain 2 days #10 TABLETS 11/21/22 [Rx Last Taken Unknown] amoxicillin 500 mg-potassium clavulanate 125 mg tablet (Augmentin) 1 tab PO DAILY 10 days #10 tabs 02/26/23 [Rx Last Taken Unknown] prednisone 20 mg tablet 20 mg PO DAILY 5 days #5 tabs 02/26/23 [Rx Last Taken Unknown] Allergy/AdvReac Type Severity Reaction Status Date / Time gabapentin Allergy Other Verified 02/26/23 00:54 Family History Other Adopted Surgical History History of angioplasty of peripheral vessel (08/28/21) History of cardioversion (12/02/18) history of cather replacement History of herniorrhaphy History of left heart catheterization (09/17/18) History of mitral valve replacement with bioprosthetic valve (08/21/21) History of repair of congenital cleft palate History of right and left heart catheterization (08/16/21) History of tooth extraction, class IV edentulism (09/11/21) Hx of mitral valve replacement Mechanical complication of dialysis catheter Status post creation of arteriovenous fistula Social History household members: none Smoking Status: Never smoker alcohol intake: never substance use type: marijuana what type of physical activity do you participate in: none ROS ROS ED Constitutional Constitutional ED: Reports chills and fever(s) ENT ENT ED: Reports sore throat Cardiovascular Cardiovascular: Denies chest pain Respiratory/Chest Respiratory/Chest: Denies cough or dyspnea Gastrointestinal Gastrointestinal: Denies abdominal pain, diarrhea, nausea or vomiting Musculoskeletal Musculoskeletal: Reports myalgias Integumentary Denies rash Neurologic Neurologic: Reports weakness; Denies headache(s) Hematologic/Lymphatic Hematologic/Lymphatic: Reports easy bleeding and easy bruising EXAM Physical Exam Const Vital Signs: 02/26/23 00:54 02/26/23 00:54 02/26/23 01:01 Temperature 101 F H 101 F H Temperature Source Temporal Temporal Pulse Rate 122 H 122 H Respiratory Rate 16 16 Respiratory Pattern Normal Blood Pressure 142/75 H 124/75 H Blood Pressure Mean 97 91 Pulse Ox 95 95 Positive well nourished and well developed General Appearance ED: well developed HEENT HEENT Narrative: Posterior pharynx is erythematous with +2 tonsillar hypertrophy and exudates present. No hard palate petechiae. No change in voice. No difficulty with secretions. No trismus noted. Eyes PERRL and EOMs intact bilaterally Neck supple Neck Narrative: Positive tender anterior cervical of adenopathy noted No nuchal rigidity or meningeal signs present Resp normal respiratory effort and clear to auscultation bilaterally Cardio regular rhythm Rate: tachycardic GI normal to inspection, nondistended, normoactive bowel sounds, non-tender, non-distended and no masses GI Narrative: No voluntary guarding or rigidity no pulsatile mass or fluid wave Auscultation: normoactive bowel sounds Palpation: soft Extremity normal to inspection Neuro oriented x3 and CN's II-XII intact bilaterally Sensorium / Orientation: alert Psych mental status grossly normal Skin no rashes or lesions noted MDM MDM MDM Narrative Medical decision making narrative: Patient presented to the ER febrile and tachycardic and the tachycardia is most likely related to the fever. He is in no respiratory distress and satting in the mid to high 90s on room air with clear lungs and there for my concern for pneumonia or pleural effusion is low. Differential diagnosis also includes strep pharyngitis versus viral pharyngitis versus peritonsillar abscess. At this time he does not have a muffled or change voice or trismus and I do not feel that a abscess is present and therefore do not feel the need to order a CT of the soft tissue neck. As strep is the most likely diagnosis based on his physical exam a rapid strep swab was obtained. Unfortunately lab states that based on his complex medical history he has antibodies that make running the rapid test unreliable. Therefore it will be sent for culture. However at this time as he is plus 4 out of 4 on the [employer] criteria I do have high suspicion that this is strep pharyngitis and we will place him on antibiotics. However as he had improvement to his vitals with antipyretics and he is in no respiratory distress and concern for a peritonsillar or retropharyngeal abscess is low he will be discharged and advised to return if symptoms worsen. History & Record Review Discussion w/independent historian: Patient Discharge Plan Triage Chief Complaint: Cold Sx ED Provider: Cory Barksdale Dx/Rx/DC Orders Clinical Impression: Acute streptococcal pharyngitis, Pyrexia, ESRD (end stage renal disease), History of mitral valve replacement with bioprosthetic valve Instructions: ED Fever Control (Adult), ED Pharyngitis, Strep (Presumed) Prescriptions: New amoxicillin-pot clavulanate [Augmentin] 500-125 mg tablet 1 tab PO DAILY 10 Days Qty: 10 0RF prednisone 20 mg tablet 20 mg PO DAILY 5 Days Qty: 5 0RF No Action aspirin [Adult Aspirin Regimen] 81 mg tablet,delayed release (DR/EC) 81 mg PO DAILY midodrine 10 mg tablet 10 mg PO TID warfarin 2 mg tablet 4 mg PO DAILY Protocol: Dose Management Condition: Friday Dose/Route: 4 mg Instruction: 2 x 2 mg tablets Condition: Friday Dose/Route: 4 mg Instruction: 2 x 2 mg tablets Condition: Friday Dose/Route: 4 mg Instruction: 2 x 2 mg tablets Condition: Friday Dose/Route: 4 mg Instruction: 2 x 2 mg tablets Condition: Dose/Route: 4 mg Instruction: 2 x 2 mg tablets Condition: Friday Dose/Route: 2 mg Instruction: 1 x 2 mg tablet Condition: Friday Dose/Route: 2 mg Instruction: 1 x 2 mg tablet Protocol Text: Adjustment Start Date: Friday11/04/22 INR Value: 2.1 INR Date: 11/04/22 Recheck Date: 11/11/22 sevelamer carbonate 800 mg tablet 800 mg PO TID Label Comments: TAKE 3 TABLETS BY MOUTH THREE TIMES DAILY WITH MEALS oxycodone 5 mg tablet 5 mg PO Q6H PRN (Reason: pain) 3 Days Qty: 12 0RF doxycycline monohydrate 100 mg capsule 100 mg PO BID Qty: 14 0RF Critic-Aid 20-51 % paste 1 applic topical DAILY Qty: 852 0RF oxycodone-acetaminophen [Percocet] 5-325 mg tablet 1 tab PO Q6H PRN (Reason: pain) 3 Days Qty: 12 0RF cephalexin 500 mg capsule 500 mg PO Q6 Qty: 40 0RF hydrocodone-acetaminophen [hydrocodone-acetaminophen] 5-325 mg tablet 1 tab PO Q4H PRN PRN (Reason: Pain) 2 Days Qty: 10 0RF (DME) BP monitor large cuff See Rx Instructions .Route .MEDSUPPLY Qty: 1 0RF Rx Instructions: As directed Primary Care Provider: Care Physician,No Primary Referrals: Care Physician,No Primary [Primary Care Provider] - Activity Restrictions/Additional Instructions: Please continue to take Tylenol as it will take 2 to 3 days for the antibiotic to resolve the infection and resolve the fever. You may take 2 extra strength Tylenol at a time up to 4 times a day. Use the antibiotic and steroid as directed to help resolve inflammation and the infection and continue to go to dialysis and take your other medication as previously directed. If you have any further concerns please return to the hospital for repeat evaluation Disposition Disposition: Home, Self Care Discharge Date/Time: 02/26/23 04:03
[2023-02-26] MEDS: Amox/Clavulanate 500 MG Tablet PO (03:59)
[2023-02-26 04:02] VITALS: BP 103/56; PULSE 76; RESP 18; TEMP 36.6; O2SAT 100
== END 2023-02-26 04:03 | disposition home or self-care (01) ==
PROVIDERS: Emergency Provider Emergency Medicine; Visit Provider Emergency Medicine
DX: J02.0 Streptococcal pharyngitis (principal); Z99.2 Dependence on renal dialysis; I12.0 Hypertensive chronic kidney disease with stage 5 chronic kidney disease or end stage renal disease; N18.6 End stage renal disease; I48.0 Paroxysmal atrial fibrillation; E66.01 Morbid (severe) obesity due to excess calories; Z86.16 Personal history of COVID-19; I25.2 Old myocardial infarction; Z86.711 Personal history of pulmonary embolism; Z68.37 Body mass index [BMI] 37.0-37.9, adult; G47.33 Obstructive sleep apnea (adult) (pediatric); Z79.899 Other long term (current) drug therapy; Z79.82 Long term (current) use of aspirin; Z79.01 Long term (current) use of 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s; Z95.3 Presence of xenogenic heart valve
CPT/HCPCS: 87880; 99283

== ENCOUNTER 2023-03-20 00:21 | Emergency (ER) | payer MEDICARE, MEDICAID, SELFPAY ==
[2023-03-20 00:23] VITALS: BP 129/82; PULSE 99; RESP 18; TEMP 36.8; O2SAT 100; BMI 36.6
--- NOTE | 2023-03-20 00:45 | EDS_ITS ---
HPI History of Present Illness Chief Complaint: Other, Pain/Inj Informant: patient Narrative Narrative: Patient presenting with 2 separate issues. His right volar forearm has been hurting for the past week, hurts more to move, better to remain still no known injury or obvious reason for this pain, has noticed no skin color changes or rashes or other lesions. He is right-hand dominant. He has had no surgeries, IVs in this arm, or anything else that would explain his pain recently. He has an old AV fistula in his right upper arm that has not been used for a long time, he currently uses 1 his right thigh for dialysis which he had today. He is on warfarin for history of A-fib, he has not had his INR checked in maybe a month or more. He denies any bleeding from anywhere. In addition, he states he has been having pain in his left posterior lateral neck for the past 4 or 5 days gradual in onset, denies any known injury that he can recall, and he states today it started bothering him in his left thigh and popliteal area, and seems to be associated with his neck. This is what brought him in because he asked his dialysis nurse and she advised that he come to the emergency department. He presents around 12:30 AM. He states he denies any numbness or tingling anywhere associated with this. He denies a headache. He denies any weakness in his extremities or trouble walking. Moving his head makes his neck hurt worse but walking does not make his leg hurt worse. 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) Central retinal artery occlusion of left eye (10/09/20) Chronic kidney disease-mineral and bone disorder Chronic pelvic pain in male Chronic ulcer of back COVID-19 virus detected (10/02/21) Daily headache Dental caries Dialysis AV fistula malfunction Dialysis patient ESRD on hemodialysis Essential (primary) hypertension Expressive aphasia (04/05/20) Hearing loss Hematuria History of bacterial endocarditis History of blood clots History of non-ST elevation myocardial infarction (NSTEMI) (11/08/19) History of pulmonary embolus (PE) History of venous thromboembolism 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 due to renal insufficiency Hypotension of hemodialysis 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 skilled nursing current use of 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 Mechanical complication of arteriovenous fistula surgically created Medication side effects Mitral valve annular calcification Morbidly obese Non compliance w medication regimen Non-healing non-surgical wound Nonrheumatic mitral valve stenosis with insufficiency Obstructive sleep apnea Pain of right lower extremity Paroxysmal atrial fibrillation (06/10/20) Paroxysmal atrial flutter 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) Pelvic mass Postoperative complete heart block (08/21/21) Sepsis Thrombosis of kidney dialysis arteriovenous graft Unspecified symptoms and signs involving cognitive functions and awareness (04/05/20) Home Medications BP monitor #1 ea 07/17/21 [Rx Last Taken Unknown] aspirin 81 mg tablet,delayed release (Adult Aspirin Regimen) 81 mg PO DAILY 10/29/21 [History Last Taken Unknown] midodrine 10 mg tablet 10 mg PO TID 10/29/21 [History Last Taken Unknown] warfarin 2 mg tablet 4 mg PO DAILY 04/30/22 [History Last Taken Unknown] sevelamer carbonate 800 mg tablet 800 mg PO TID 06/25/22 [History Last Taken Unknown] oxycodone 5 mg tablet 5 mg PO Q6H PRN pain 3 days #12 tabs 09/20/22 [Rx Last Taken Unknown] doxycycline monohydrate 100 mg capsule 100 mg PO BID #14 caps 10/19/22 [Rx Last Taken Unknown] oxycodone-acetaminophen 5 mg-325 mg tablet (Percocet) 1 tab PO Q6H PRN pain 3 days #12 tabs 10/19/22 [Rx Last Taken Unknown] zinc oxide-petrolatum 20 %-51 % topical paste (Critic-Aid) 1 applic topical DAILY #852 grams 10/19/22 [Rx Last Taken Unknown] cephalexin 500 mg capsule 500 mg PO Q6 #40 CAPSULES 11/11/22 [Rx Last Taken Unknown] hydrocodone-acetaminophen 5-325mg 5mg-325mg 1 tab PO Q4H PRN PRN Pain 2 days #10 TABLETS 11/21/22 [Rx Last Taken Unknown] amoxicillin 500 mg-potassium clavulanate 125 mg tablet (Augmentin) 1 tab PO DAILY 10 days #10 tabs 02/26/23 [Rx Last Taken Unknown] prednisone 20 mg tablet 20 mg PO DAILY 5 days #5 tabs 02/26/23 [Rx Last Taken Unknown] tramadol 50 mg tablet 50 mg PO Q6H PRN pain 2 days #8 tabs 03/20/23 [Rx Last Taken Unknown] Allergy/AdvReac Type Severity Reaction Status Date / Time gabapentin Allergy Other Verified 03/20/23 00:32 Family History Other Adopted Surgical History History of angioplasty of peripheral vessel (08/28/21) History of cardioversion (12/02/18) history of cather replacement History of herniorrhaphy History of left heart catheterization (09/17/18) History of mitral valve replacement with bioprosthetic valve (08/21/21) History of repair of congenital cleft palate History of right and left heart catheterization (08/16/21) History of tooth extraction, class IV edentulism (09/11/21) Hx of mitral valve replacement Mechanical complication of dialysis catheter Status post creation of arteriovenous fistula Social History household members: none Smoking Status: Never smoker alcohol intake: never substance use type: marijuana what type of physical activity do you participate in: none ROS ROS ED Constitutional Constitutional ED: Denies chills or fever(s) Eyes Eyes: Denies change in vision or diplopia ENT ENT ED: Denies rhinorrhea or sore throat Cardiovascular Cardiovascular: Denies chest pain or palpitations Respiratory/Chest Respiratory/Chest: Denies cough or dyspnea Gastrointestinal Gastrointestinal: Denies abdominal pain, diarrhea, nausea or vomiting Genitourinary Genitourinary ED: Denies dysuria or hematuria Musculoskeletal Musculoskeletal: Reports as per HPI, extremity pain and neck pain; Denies back pain Integumentary Denies abscess or rash Neurologic Neurologic: Denies headache(s), paresthesias or weakness Psychiatric Psychiatric: Denies anxiety or suicidal thoughts EXAM Physical Exam Const Vital Signs: 03/20/23 00:23 Temperature 98.2 F Temperature Source Temporal Pulse Rate 99 Respiratory Rate 18 Blood Pressure 129/82 H Blood Pressure Mean 97 Pulse Ox 100 Oxygen Delivery Method Room Air Positive well nourished and well developed General Appearance ED: well developed and NAD HEENT Reports moist mucous membranes normocephalic and atraumatic Eyes PERRL and EOMs intact bilaterally Neck full ROM, no lymphadenopathy and supple Neck Narrative: Tender in the left trapezius near the base of the neck, heading toward the rhomboids, and along the distribution of the sternocleidomastoid including the its insertion in the clavicle, but without any bony tenderness there or the spine. Increases his pain with turning his head ipsilaterally to the left, consistent with this, not as bad when he turns to the right, he has full range of motion. Resp normal respiratory effort and clear to auscultation bilaterally GI non-tender and non-distended Auscultation: normoactive bowel sounds Palpation: soft Back/Spine no CVA tenderness General Back: other FROM Extremity normal to inspection Extremity Narrative: Tenderness in the volar aspect of the right forearm, it is proximal to the wrist, at about the junction of the middle and distal thirds; the tenderness is muscle-deep, there are no palpable cords, there is no area that is swollen, there is no overlying skin abnormalities or discoloration, no abscess, and he has an intact distal 2+ radial pulse. There is a surgical scar from AV fistula upper arm, no palpable thrill there. Full range of motion of the elbow and the wrist without difficulty, he increases his pain when he flexes the wrist. No epitrochlear lymphadenopathy. Palpable pulse AV fistula right anterior thigh. Negative left lower extremity straight leg raise, no palpable tenderness, mass, abscess, cord left thigh, popliteal, calf. General Extremety ED: Yes tenderness; Negative for edema or pulses abnormal General Extremity: Negative for edema or pulses abnormal Neuro oriented x3, CN's II-XII intact bilaterally and no sensory deficits noted Sensorium / Orientation: awake and alert Motor Exam: strength 5/5 throughout Skin no rashes or lesions noted and no wounds MDM MDM MDM Narrative Medical decision making narrative: I reassured the patient I think this is all muscular. I do not think he needs to be evaluated for a DVT in his right arm since he has no reason to have that recently, and also since he is anticoagulated. When I palpate the right trapezius while the patient is sitting there, he states it makes his left lower extremity hurt more. I do not have a great explanation for this, but I do not think that it indicates anything dangerous and he is having no numbness to suggest stroke or radiculopathy or peripheral neuropathy as cause for any of this. I asked him if he wanted me to check his INR, he does so we did that. Is 2.0, therapeutic. This makes an acute DVT although less likely. Patient was given a tramadol while he was awaiting which helped a little he was given a prescription for some more and advised to follow-up as needed. Lab Data Attestation: I reviewed the patient's lab results. Labs: Laboratory Results - last 24 hr 03/20/23 00:17 PT 22.6 H INR 2.0 Discharge Plan Triage Chief Complaint: Other, Pain/Inj ED Provider: Dmitriy Matos Dx/Rx/DC Orders Clinical Impression: Strain of left trapezius muscle, Muscle strain of right forearm, Warfarin- induced coagulopathy Instructions: ED Muscle Strain, Extremity Prescriptions: New tramadol 50 mg tablet 50 mg PO Q6H PRN (Reason: pain) 2 Days Qty: 8 0RF No Action aspirin [Adult Aspirin Regimen] 81 mg tablet,delayed release (DR/EC) 81 mg PO DAILY midodrine 10 mg tablet 10 mg PO TID warfarin 2 mg tablet 4 mg PO DAILY Protocol: Dose Management Condition: Friday Dose/Route: 4 mg Instruction: 2 x 2 mg tablets Condition: Friday Dose/Route: 4 mg Instruction: 2 x 2 mg tablets Condition: Friday Dose/Route: 4 mg Instruction: 2 x 2 mg tablets Condition: Friday Dose/Route: 4 mg Instruction: 2 x 2 mg tablets Condition: Dose/Route: 4 mg Instruction: 2 x 2 mg tablets Condition: Friday Dose/Route: 2 mg Instruction: 1 x 2 mg tablet Condition: Friday Dose/Route: 2 mg Instruction: 1 x 2 mg tablet Protocol Text: Adjustment Start Date: Friday11/04/22 INR Value: 2.1 INR Date: 11/04/22 Recheck Date: 11/11/22 sevelamer carbonate 800 mg tablet 800 mg PO TID Label Comments: TAKE 3 TABLETS BY MOUTH THREE TIMES DAILY WITH MEALS oxycodone 5 mg tablet 5 mg PO Q6H PRN (Reason: pain) 3 Days Qty: 12 0RF doxycycline monohydrate 100 mg capsule 100 mg PO BID Qty: 14 0RF Critic-Aid 20-51 % paste 1 applic topical DAILY Qty: 852 0RF oxycodone-acetaminophen [Percocet] 5-325 mg tablet 1 tab PO Q6H PRN (Reason: pain) 3 Days Qty: 12 0RF cephalexin 500 mg capsule 500 mg PO Q6 Qty: 40 0RF hydrocodone-acetaminophen [hydrocodone-acetaminophen] 5-325 mg tablet 1 tab PO Q4H PRN PRN (Reason: Pain) 2 Days Qty: 10 0RF amoxicillin-pot clavulanate [Augmentin] 500-125 mg tablet 1 tab PO DAILY 10 Days Qty: 10 0RF prednisone 20 mg tablet 20 mg PO DAILY 5 Days Qty: 5 0RF (DME) BP monitor large cuff See Rx Instructions .Route .MEDSUPPLY Qty: 1 0RF Rx Instructions: As directed Primary Care Provider: Care Physician,No Primary Referrals: Doctor,Your [Non-Staff] - 1 Week if not improving Disposition Disposition: Home, Self Care
[2023-03-20] MEDS: traMADol 50 MG Tablet PO (00:49)
[2023-03-20 01:13] LABS: Prothrombin Time (Protime)PT. 22.6 SECONDS (11.7-14.9)
== END 2023-03-20 01:53 | disposition home or self-care (01) ==
PROVIDERS: Emergency Provider Emergency Medicine; Visit Provider Emergency Medicine
DX: S46.812A Strain of other muscles, fascia and tendons at shoulder and upper arm level, left arm, initial encounter (principal); Z99.2 Dependence on renal dialysis; N18.6 End stage renal disease; I48.0 Paroxysmal atrial fibrillation; S46.911A Strain of unspecified muscle, fascia and tendon at shoulder and upper arm level, right arm, initial encounter; R79.1 Abnormal coagulation profile; F12.90 Cannabis use, unspecified, uncomplicated; G47.33 Obstructive sleep apnea (adult) (pediatric); Z79.01 Long term (current) use of 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s; Z86.16 Personal history of COVID-19; Z86.711 Personal history of pulmonary embolism; X58.XXXA Exposure to other specified factors, initial encounter
CPT/HCPCS: 36415; 85610; 99282

== ENCOUNTER 2023-03-28 00:01 | Emergency (ER) | payer MEDICARE, MEDICAID, SELFPAY ==
[2023-03-28 00:06] VITALS: BP 115/69; PULSE 100; RESP 16; TEMP 36.1; O2SAT 100
[2023-03-28 00:14] VITALS: BMI 37.7
--- NOTE | 2023-03-28 00:35 | RAD_ITS ---
EXAM: XR Hip Unilateral with Pelvis when performed; 2-3 Views INDICATION: Male, 43 years old. The hip pain TECHNIQUE: AP and frog-leg lateral views of the right hip with AP view pelvis COMPARISON: None FINDINGS: BONES: There is no acute fracture. There is sclerotic remodeling of the right superior and inferior pubic rami, unchanged. Sclerotic remodeling of bilateral sacroiliac joints noted, right greater than left and unchanged. JOINTS: Joints bilateral hip joints are normal alignment without significant degenerative change.. SOFT TISSUES: No soft tissue abnormality. RAD/HIP, UNI W/ Pelvis 2-3 Views IMPRESSION: 1. No acute abnormality of the pelvis or right hip 2. Sclerotic remodeling of the right superior and inferior pubic rami and bilateral sacroiliac joints, unchanged from prior imaging. Electronically Signed: Elia Coronado MD at 1:36 EDT ,
--- NOTE | 2023-03-28 00:35 | ED.VIS.LOWEX ---
HPI History of Present Illness Chief Complaint: Lower Extremity Injury Informant: patient Narrative Narrative: Patient complaining of lateral right hip pain for the past 2 or 3 days, progressively getting worse. She is not having a lot of pain when he is resting, but it really hurts to move and bear weight. He does not have any groin pain, denies any buttock or back pain. No tingling or weakness in the leg. No recent falls or injuries. 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) Central retinal artery occlusion of left eye (10/09/20) Chronic kidney disease-mineral and bone disorder Chronic pelvic pain in male Chronic ulcer of back COVID-19 virus detected (10/02/21) Daily headache Dental caries Dialysis AV fistula malfunction Dialysis patient ESRD on hemodialysis Essential (primary) hypertension Expressive aphasia (04/05/20) Hearing loss Hematuria History of bacterial endocarditis History of blood clots History of non-ST elevation myocardial infarction (NSTEMI) (11/08/19) History of pulmonary embolus (PE) History of venous thromboembolism 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 due to renal insufficiency Hypotension of hemodialysis 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 Mechanical complication of arteriovenous fistula surgically created Medication side effects Mitral valve annular calcification Morbidly obese Non compliance w medication regimen Non-healing non-surgical wound Nonrheumatic mitral valve stenosis with insufficiency Obstructive sleep apnea Pain of right lower extremity Paroxysmal atrial fibrillation (06/10/20) Paroxysmal atrial flutter 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) Pelvic mass Postoperative complete heart block (08/21/21) Sepsis Thrombosis of kidney dialysis arteriovenous graft Unspecified symptoms and signs involving cognitive functions and awareness (04/05/20) Home Medications BP monitor #1 ea 07/17/21 [Rx Last Taken Unknown] aspirin 81 mg tablet,delayed release (Adult Aspirin Regimen) 81 mg PO DAILY 10/29/21 [History Last Taken Unknown] midodrine 10 mg tablet 10 mg PO TID 10/29/21 [History Last Taken Unknown] warfarin 2 mg tablet 4 mg PO DAILY 04/30/22 [History Last Taken Unknown] sevelamer carbonate 800 mg tablet 800 mg PO TID 06/25/22 [History Last Taken Unknown] diclofenac sodium 1 % topical gel (Arthritis Pain (diclofenac)) 2 g topical .qid PRN pain #100 grams 03/28/23 [Rx Last Taken Unknown] Allergy/AdvReac Type Severity Reaction Status Date / Time gabapentin Allergy Other Verified 03/28/23 00:03 Family History Other Adopted Surgical History History of angioplasty of peripheral vessel (08/28/21) History of cardioversion (12/02/18) history of cather replacement History of herniorrhaphy History of left heart catheterization (09/17/18) History of mitral valve replacement with bioprosthetic valve (08/21/21) History of repair of congenital cleft palate History of right and left heart catheterization (08/16/21) History of tooth extraction, class IV edentulism (09/11/21) Hx of mitral valve replacement Mechanical complication of dialysis catheter Status post creation of arteriovenous fistula Social History household members: none Smoking Status: Never smoker alcohol intake: never substance use type: marijuana what type of physical activity do you participate in: none ROS ROS ED Constitutional Constitutional ED: Denies chills or fever(s) Musculoskeletal Musculoskeletal: Reports extremity pain; Denies neck pain Integumentary Denies Abrasions, rash or wounds Neurologic Neurologic: Denies paresthesias or weakness EXAM Physical Exam Const Vital Signs: 03/28/23 00:06 Temperature 97 F L Temperature Source Temporal Pulse Rate 100 Respiratory Rate 16 Blood Pressure 115/69 Blood Pressure Mean 84 Pulse Ox 100 Positive well nourished, well developed and obese General Appearance ED: well developed and NAD Nutritional Appearance: obese Neck full ROM and supple Back/Spine normal ROM and normal to inspection Extremity full ROM Extremity Narrative: Can flex the thigh, does have some pain more laterally and externally rotators when he does this. With planting his foot on the bed and internally/externally rotating the right hip, he has some pain in the same area but not the groin. Minimal tenderness at the greater trochanter, no guarding in this area. He has no tenderness at sciatic notch or ischial tuberosity or other pelvic bone prominences, nor elsewhere in the back or SI joint. He is neurovascular intact distally. Neuro oriented x3, no focal motor deficits and no sensory deficits noted Sensorium / Orientation: alert Psych mental status grossly normal and thought process normal Skin no wounds Rashes: no rashes MDM MDM MDM Narrative Medical decision making narrative: Three-view x-ray series of the right hip were obtained on my interpretation they are normal, with no acute bony abnormality, fracture, signs of significant arthritis, etc. Vital signs are normal. We checked his INR 1 week ago was 2.0, he is not bleeding from anywhere and I do not think that is related to his pain here. He really is not having groin/hip joint pain, I think this is more external rotator muscle-related. He is on warfarin so therefore NSAIDs are contraindicated, but topical NSAIDs are reasonable so I am giving a prescription for diclofenac topical, he wants to try a muscle relaxer given a single dose of cyclobenzaprine here but I do not think that is what is going to help with this I am not prescribing him any which we talked about. Discharge Plan Triage Chief Complaint: Lower Extremity Injury ED Provider: Dmitriy Matos Dx/Rx/DC Orders Clinical Impression: Strain of muscle of right hip, Warfarin-induced coagulopathy Instructions: ED Muscle Strain, Extremity Prescriptions: New diclofenac sodium [Arthritis Pain (diclofenac)] 1 % gel 2 g topical .qid PRN (Reason: pain) Qty: 100 0RF No Action aspirin [Adult Aspirin Regimen] 81 mg tablet,delayed release (DR/EC) 81 mg PO DAILY midodrine 10 mg tablet 10 mg PO TID warfarin 2 mg tablet 4 mg PO DAILY Protocol: Dose Management Condition: Friday Dose/Route: 4 mg Instruction: 2 x 2 mg tablets Condition: Friday Dose/Route: 4 mg Instruction: 2 x 2 mg tablets Condition: Friday Dose/Route: 4 mg Instruction: 2 x 2 mg tablets Condition: Friday Dose/Route: 4 mg Instruction: 2 x 2 mg tablets Condition: Dose/Route: 4 mg Instruction: 2 x 2 mg tablets Condition: Friday Dose/Route: 2 mg Instruction: 1 x 2 mg tablet Condition: Friday Dose/Route: 2 mg Instruction: 1 x 2 mg tablet Protocol Text: Adjustment Start Date: Friday11/04/22 INR Value: 2.1 INR Date: 11/04/22 Recheck Date: 11/11/22 sevelamer carbonate 800 mg tablet 800 mg PO TID Patient Comments: TAKE 3 TABLETS BY MOUTH THREE TIMES DAILY WITH MEALS (DME) BP monitor large cuff See Rx Instructions .Route .MEDSUPPLY Qty: 1 0RF Rx Instructions: As directed Primary Care Provider: Care Physician,No Primary Referrals: Doctor,Your [Non-Staff] - 1 Week if not improving Disposition Disposition: Home, Self Care
[2023-03-28] MEDS: cycloBENZAPRine HCl 10 MG Tablet PO (01:36)
[2023-03-28 01:38] VITALS: BP 131/62; PULSE 75; RESP 18
== END 2023-03-28 01:38 | disposition home or self-care (01) ==
PROVIDERS: Emergency Provider Emergency Medicine; Visit Provider Emergency Medicine
DX: S76.011A Strain of muscle, fascia and tendon of right hip, initial encounter (principal); N18.6 End stage renal disease; I48.0 Paroxysmal atrial fibrillation; F12.90 Cannabis use, unspecified, uncomplicated; I25.2 Old myocardial infarction; G47.33 Obstructive sleep apnea (adult) (pediatric); Z79.01 Long term (current) use of 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s; Z79.82 Long term (current) use of aspirin; Z86.16 Personal history of COVID-19; Z86.711 Personal history of pulmonary embolism; X58.XXXA Exposure to other specified factors, initial encounter
CPT/HCPCS: 73502; 99283

== ENCOUNTER 2023-06-21 23:32 | Emergency (ER) | payer MEDICARE, SELFPAY ==
[2023-06-21 23:33] VITALS: BP 121/62; PULSE 56; RESP 16; TEMP 36.2; O2SAT 93; BMI 36.6
[2023-06-21] MEDS: oxyCODONE 5 MG Tablet PO (23:53)
--- NOTE | 2023-06-21 23:57 | EX.ED.DYSGE1 ---
HPI History of Present Illness Chief Complaint: Wound Informant: patient Narrative Narrative: Patient states just prior to arrival he had sat down on a couch and was eating dessert, had spontaneous bleeding from a chronic wound he has in his left abdominal wall. It is chronically sore, it is hurting now more than it usually has been, and at the same time he was having pain up into his left upper quadrant/lower chest anteriorly. Nonpleuritic. No dyspnea. No other new symptoms. On warfarin because of a mechanical heart valve. Dialysis patient, last scheduled dialysis that he went to was yesterday, has not missed any. No recent illness. States he had this happen a week or 2 ago as well, he was seen at a hospital in [place] and they got the bleeding to stop. He states he does not know what his INR was but they did not alter his warfarin dose at all. 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) Central retinal artery occlusion of left eye (10/09/20) Chronic kidney disease-mineral and bone disorder Chronic pelvic pain in male Chronic ulcer of back COVID-19 virus detected (10/02/21) Daily headache Dental caries Dialysis AV fistula malfunction Dialysis patient ESRD on hemodialysis Essential (primary) hypertension Expressive aphasia (04/05/20) Hearing loss Hematuria History of bacterial endocarditis History of blood clots History of non-ST elevation myocardial infarction (NSTEMI) (11/08/19) History of pulmonary embolus (PE) History of venous thromboembolism 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 due to renal insufficiency Hypotension of hemodialysis 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 Mechanical complication of arteriovenous fistula surgically created Medication side effects Mitral valve annular calcification Morbidly obese Non compliance w medication regimen Non-healing non-surgical wound Nonrheumatic mitral valve stenosis with insufficiency Obstructive sleep apnea Pain of right lower extremity Paroxysmal atrial fibrillation (06/10/20) Paroxysmal atrial flutter 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) Pelvic mass Postoperative complete heart block (08/21/21) Sepsis Thrombosis of kidney dialysis arteriovenous graft Unspecified symptoms and signs involving cognitive functions and awareness (04/05/20) Home Medications BP monitor #1 ea 07/17/21 [Rx Last Taken Unknown] aspirin 81 mg tablet,delayed release (Adult Aspirin Regimen) 81 mg PO DAILY 10/29/21 [History Last Taken Unknown] midodrine 10 mg tablet 10 mg PO TID 10/29/21 [History Last Taken Unknown] sevelamer carbonate 800 mg tablet 800 mg PO TID 06/25/22 [History Last Taken Unknown] warfarin 2 mg tablet 2 mg PO SUSA 06/21/23 [History Last Taken Unknown] warfarin 4 mg tablet 4 mg PO MOTUWETHFR 06/21/23 [History Last Taken Unknown] Allergy/AdvReac Type Severity Reaction Status Date / Time gabapentin Allergy Other Verified 06/21/23 23:33 Family History Other Adopted Surgical History History of angioplasty of peripheral vessel (08/28/21) History of cardioversion (12/02/18) history of cather replacement History of herniorrhaphy History of left heart catheterization (09/17/18) History of mitral valve replacement with bioprosthetic valve (08/21/21) History of repair of congenital cleft palate History of right and left heart catheterization (08/16/21) History of tooth extraction, class IV edentulism (09/11/21) Hx of mitral valve replacement Mechanical complication of dialysis catheter Status post creation of arteriovenous fistula Social History household members: none Smoking Status: Never smoker alcohol intake: never substance use type: marijuana what type of physical activity do you participate in: none ROS ROS ED Constitutional Constitutional ED: Denies chills or fever(s) Gastrointestinal Gastrointestinal: Reports abdominal pain Integumentary Reports as per HPI and wounds Psychiatric Psychiatric: Reports anxiety Hematologic/Lymphatic Hematologic/Lymphatic: Reports easy bleeding and easy bruising EXAM Physical Exam Const Vital Signs: 06/21/23 23:33 Temperature 97.2 F L Temperature Source Temporal Pulse Rate 56 L Respiratory Rate 16 Blood Pressure 121/62 H Blood Pressure Mean 81 Pulse Ox 93 Positive well nourished, well developed and obese General Appearance ED: well developed and NAD Nutritional Appearance: obese HEENT Reports moist mucous membranes normocephalic and atraumatic Eyes PERRL and EOMs intact bilaterally Neck full ROM and supple Chest Wall inspection of chest normal and palpation of chest normal Chest Narrative: Left upper chest dialysis catheter in place site is benign Resp normal respiratory effort and clear to auscultation bilaterally Cardio regular rate, regular rhythm and no murmurs GI non-distended GI Narrative: Tender at the wound on his left lateral abdominal wall, but no other areas of reproducible abdominal tenderness. Auscultation: normoactive bowel sounds Palpation: soft Back/Spine no CVA tenderness General Back: other FROM Extremity normal to inspection General Extremety ED: Negative for edema, pulses abnormal or tenderness General Extremity: Negative for edema or pulses abnormal Neuro oriented x3, CN's II-XII intact bilaterally and no sensory deficits noted Sensorium / Orientation: awake and alert Motor Exam: strength 5/5 throughout Psych Mood & Affect: anxious Skin no rashes or lesions noted Skin Narrative: Chronic appearing wound left lateral abdominal wall, nonpulsatile bleeding from one particular spot in the wound, it appears to be the the part of the wound that is the deepest. There is no signs of any infection there. All of the ulcerated areas of the wound are very tender especially where the bleeding is coming from. Putting point pressure with the finger on that area temporarily stopped the bleeding. There is also a wound on the right low back there is no active bleeding there or signs of infection, it is sore and tender as well. He agrees that has been there chronically. MDM MDM MDM Narrative Medical decision making narrative: Patient's INR is therapeutic for him 2.7, he has a mechanical heart valve, obviously this cannot be reversed as I discussed with him. He is very anxious and wants to be admitted because of this wound and the pain he is having in his left upper quadrant which on reexamination is reproducible with mild tenderness there without rebound. He was given an oxycodone, did help his pain but he still said that he has pain although he admits that he has chronic pain and states that he has not slept in his bed for the past 3 or 4 months because of chronic pain. I advised him that in the middle of the night I certainly cannot fix his chronic pain and he understands that, we fixed his bleeding wound by placing a piece of Surgifoam directly against the area where the bleeding was coming from with point pressure, and a dressing with tape on it. We observed him for over an hour with no recurrent bleeding, I placed a Telfa pad against the Surgifoam, it is not bleeding without it, but then a wad of gauze on the outside of that with tape over it to help apply some gentle pressure to the area. He states he wants to be admitted because what if it bleeds again in the middle of the night? I advised him that there is no indication to admit him for that, that is why we observed him for over an hour here in the emergency department, and I am sending him home with the rest of the pack of Surgifoam that he can use if the bleeding recurs, I recommend he set an alarm so that he can wake up every couple hours and check his wound for recurrent bleeding if he is that concerned, and he is welcome to return. Lab Data Attestation: I reviewed the patient's lab results. Labs: Laboratory Results - last 24 hr 06/21/23 23:40 PT 28.7 H INR 2.7 Discharge Plan Triage Chief Complaint: Wound ED Provider: Dmitriy Matos Dx/Rx/DC Orders Clinical Impression: Chronic pain, Bleeding from wound, Warfarin-induced coagulopathy Instructions: First Aid: Bleeding Prescriptions: No Action aspirin [Adult Aspirin Regimen] 81 mg tablet,delayed release (DR/EC) 81 mg PO DAILY midodrine 10 mg tablet 10 mg PO TID sevelamer carbonate 800 mg tablet 800 mg PO TID Patient Comments: TAKE 3 TABLETS BY MOUTH THREE TIMES DAILY WITH MEALS warfarin 4 mg tablet 4 mg PO MOTUWETH Protocol: Dose Management Condition: Friday Dose/Route: 2 mg Instruction: 1 x 2 mg tablet Condition: Friday Dose/Route: 4 mg Instruction: 1 x 4 mg tablet Condition: Friday Dose/Route: 4 mg Instruction: 1 x 4 mg tablet Condition: Friday Dose/Route: 4 mg Instruction: 1 x 4 mg tablet Condition: Dose/Route: 4 mg Instruction: 1 x 4 mg tablet Condition: Friday Dose/Route: 4 mg Instruction: 1 x 4 mg tablet Condition: Friday Dose/Route: 2 mg Instruction: 1 x 2 mg tablet Protocol Text: Adjustment Start Date: 04/10/23 INR Value: 2.0 INR Date: 03/20/23 Recheck Date: 04/18/23 warfarin 2 mg tablet 2 mg PO SUSA Protocol: Dose Management Condition: Friday Dose/Route: 2 mg Instruction: 1 x 2 mg tablet Condition: Friday Dose/Route: 4 mg Instruction: 1 x 4 mg tablet Condition: Friday Dose/Route: 4 mg Instruction: 1 x 4 mg tablet Condition: Friday Dose/Route: 4 mg Instruction: 1 x 4 mg tablet Condition: Dose/Route: 4 mg Instruction: 1 x 4 mg tablet Condition: Friday Dose/Route: 4 mg Instruction: 1 x 4 mg tablet Condition: Friday Dose/Route: 2 mg Instruction: 1 x 2 mg tablet Protocol Text: Adjustment Start Date: 04/10/23 INR Value: 2.0 INR Date: 03/20/23 Recheck Date: 04/18/23 (DME) BP monitor large cuff See Rx Instructions .Route .MEDSUPPLY Qty: 1 0RF Rx Instructions: As directed Primary Care Provider: Care Physician,No Primary Referrals: Doctor,Your [Non-Staff] - As Needed (Continue seeing your clinical product specialist in [place]) Activity Restrictions/Additional Instructions: For recurrent bleeding, start by taking a small piece of the hemostatic foam and placing it directly against the wound and apply pressure against the area where the bleeding is coming from. If you cannot get the bleeding to stop, return to the ER. Disposition Disposition: Home, Self Care
[2023-06-22 00:10] LABS: International Normalized Ratio 2.7; Prothrombin Time (Protime)PT. 28.7 SECONDS (11.7-14.9)
[2023-06-22] MEDS: Dicyclomine 10 MG Capsule 20 MG PO (01:27)
[2023-06-22 01:33] VITALS: BP 118/74; PULSE 81; RESP 16; O2SAT 99
== END 2023-06-22 01:34 | disposition home or self-care (01) ==
PROVIDERS: Emergency Provider Emergency Medicine; Visit Provider Emergency Medicine
DX: S31.101A Unspecified open wound of abdominal wall, left upper quadrant without penetration into peritoneal cavity, initial encounter (principal); Z99.2 Dependence on renal dialysis; N18.6 End stage renal disease; G89.29 Other chronic pain; F12.90 Cannabis use, unspecified, uncomplicated; I25.2 Old myocardial infarction; G47.33 Obstructive sleep apnea (adult) (pediatric); E66.9 Obesity, unspecified; R79.1 Abnormal coagulation profile; Z79.82 Long term (current) use of aspirin; Z79.01 Long term (current) use of 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s; Z86.16 Personal history of COVID-19; X58.XXXA Exposure to other specified factors, initial encounter
CPT/HCPCS: 85610; 99285; A4216

== ENCOUNTER 2023-07-21 04:29 | Emergency (ER) | payer MEDICARE, SELFPAY ==
[2023-07-21 04:32] VITALS: BP 128/80; PULSE 112; RESP 15; TEMP 36.4; O2SAT 100; BMI 39.9
[2023-07-21] MEDS: Silver Nitrate (BKC) 1 EACH TOPICAL (04:43)
[2023-07-21] MEDS: oxyCODONE 5 MG Tablet 10 MG PO (05:04)
--- NOTE | 2023-07-21 05:12 | EX.ED.DYSGE1 ---
HPI History of Present Illness Chief Complaint: Other, Pain/Inj Informant: patient and EMS Narrative Narrative: Patient is a 43-year-old male with past medical history of end-stage renal disease on dialysis as well as paroxysmal atrial fibrillation currently on Coumadin. He states he was recently at the [facility] secondary to infection across his back and recurrent bleeding. He states that he has been home now for a few days and has been taking care of the wounds as directed by the hospital. He states has been taking his Coumadin as directed as well. He reports that he went to bed normally then awoke and noticed he was bleeding from one of the wounds on his back. He states his tried to get the bleeding to stop but was unsuccessful and secondary to this EMS was called to bring him in for evaluation. 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) Central retinal artery occlusion of left eye (10/09/20) Chronic kidney disease-mineral and bone disorder Chronic pelvic pain in male Chronic ulcer of back COVID-19 virus detected (10/02/21) Daily headache Dental caries Dialysis AV fistula malfunction Dialysis patient ESRD on hemodialysis Essential (primary) hypertension Expressive aphasia (04/05/20) Hearing loss Hematuria History of bacterial endocarditis History of blood clots History of non-ST elevation myocardial infarction (NSTEMI) (11/08/19) History of pulmonary embolus (PE) History of venous thromboembolism 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 due to renal insufficiency Hypotension of hemodialysis 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 shelter current use of 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 Mechanical complication of arteriovenous fistula surgically created Medication side effects Mitral valve annular calcification Morbidly obese Non compliance w medication regimen Non-healing non-surgical wound Nonrheumatic mitral valve stenosis with insufficiency Obstructive sleep apnea Pain of right lower extremity Paroxysmal atrial fibrillation (06/10/20) Paroxysmal atrial flutter 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) Pelvic mass Postoperative complete heart block (08/21/21) Sepsis Thrombosis of kidney dialysis arteriovenous graft Unspecified symptoms and signs involving cognitive functions and awareness (04/05/20) Home Medications BP monitor #1 ea 07/17/21 [Rx Last Taken Unknown] aspirin 81 mg tablet,delayed release (Adult Aspirin Regimen) 81 mg PO DAILY 10/29/21 [History Last Taken Unknown] midodrine 10 mg tablet 10 mg PO TID 10/29/21 [History Last Taken Unknown] sevelamer carbonate 800 mg tablet 800 mg PO TID 06/25/22 [History Last Taken Unknown] warfarin 2 mg tablet 2 mg PO SUSA 06/21/23 [History Last Taken Unknown] warfarin 4 mg tablet 4 mg PO MOTUWETHFR 06/21/23 [History Last Taken Unknown] Allergy/AdvReac Type Severity Reaction Status Date / Time gabapentin Allergy Other Verified 07/21/23 04:38 Family History Other Adopted Surgical History History of angioplasty of peripheral vessel (08/28/21) History of cardioversion (12/02/18) history of cather replacement History of herniorrhaphy History of left heart catheterization (09/17/18) History of mitral valve replacement with bioprosthetic valve (08/21/21) History of repair of congenital cleft palate History of right and left heart catheterization (08/16/21) History of tooth extraction, class IV edentulism (09/11/21) Hx of mitral valve replacement Mechanical complication of dialysis catheter Status post creation of arteriovenous fistula Social History household members: none Smoking Status: Never smoker alcohol intake: never substance use type: marijuana what type of physical activity do you participate in: none ROS ROS ED Constitutional Constitutional ED: Denies chills or fever(s) ENT ENT ED: Denies sore throat Cardiovascular Cardiovascular: Denies chest pain Respiratory/Chest Respiratory/Chest: Denies cough or dyspnea Gastrointestinal Gastrointestinal: Denies abdominal pain, diarrhea, nausea or vomiting Musculoskeletal Musculoskeletal: Denies myalgias Integumentary Reports other Details: Positive ulcerative wound of his back with positive bleeding Neurologic Neurologic: Denies headache(s) Psychiatric Psychiatric: Reports anxiety Hematologic/Lymphatic Hematologic/Lymphatic: Reports easy bleeding and easy bruising EXAM Physical Exam Const Vital Signs: 07/21/23 04:32 07/21/23 08:32 Temperature 97.6 F L Temperature Source Temporal Pulse Rate 112 H Respiratory Rate 15 18 Blood Pressure 128/80 H Blood Pressure Mean 96 Pulse Ox 100 Oxygen Delivery Method Room Air Positive well nourished, well developed and obese General Appearance ED: well developed Nutritional Appearance: obese HEENT HEENT Narrative: Normocephalic atraumatic Eyes PERRL and EOMs intact bilaterally Neck supple Resp normal respiratory effort and clear to auscultation bilaterally Cardio regular rhythm Rate: tachycardic Extremity normal to inspection Neuro oriented x3 and CN's II-XII intact bilaterally Sensorium / Orientation: alert Psych Mood & Affect: anxious and tearful Skin Skin Narrative: Patient has healing wounds across his bilateral low back. There are no signs of secondary infection. In the center of the right upper midline wound near the lower thoracic and upper lumbar region is a small area of skin breakdown that has led to nonpulsatile dark red bleeding consistent with a brisk venous bleed which correlates with the patient's sudden onset of bleeding while sleeping. MDM MDM MDM Narrative Medical decision making narrative: Patient presented to the ER slightly tachycardic but otherwise with stable vital. He reported spontaneous bleeding from the wounds of his back. He states that they were not bleeding when he went to bed and then when he woke with blood and this indicates his bleeding has only been present for a few hours which correlates with his normal vital signs. As the patient is on Coumadin there is concern that his INR be supratherapeutic so a coagulation study panel was obtained as well as CBC. INR is normal at 1.9 and patient's platelet count is also normal at 281. His hemoglobin is slightly low at 6.7 but chart review reveals that his previous blood work on July 11 of this year was a hemoglobin of 7.6. As he is hemodynamically stable and the bleeding is now controlled I do not feel there is a need for an emergent transfusion. He can discuss outpatient transfusion with his family doctor if so desired. The patient had the spontaneous bleeding skin wound cauterized using 10 mL of 2% lidocaine with epinephrine injected around the area. Then 3 silver nitrate sticks were then used for chemical cauterization. Finally Surgicel was placed over top the wound. After these procedures were performed the bleeding stopped and the patient was watched in the ER for approximately 2 hours and there was no return of bleeding and vitals remained stable. Therefore there is no need for further evaluation or work-up in the ER transfer as the bleeding has been controlled and his vital signs are stable and patient can be discharged and follow-up on an outpatient basis History & Record Review Discussion w/independent historian: EMS personnel and Patient Lab Data Attestation: I reviewed the patient's lab results. Labs: Laboratory Results - last 24 hr 07/21/23 05:40 WBC 7.1 RBC 2.36 L Hgb 6.7 L Hct 23.1 L MCV 97.9 H MCH 28.4 MCHC 29.0 L RDW Std Deviation 75.9 H RDW Coeff of Lance 21.3 H Plt Count 281 MPV 10.7 Immature Gran % (Auto) 0.600 Neut % (Auto) 63.9 Lymph % (Auto) 19.6 [place] % (Auto) 12.4 H Eos % (Auto) 2.7 Baso % (Auto) 0.8 Absolute Neuts (auto) 4.5 Absolute Lymphs (auto) 1.39 Nucleated RBC % 0 Hypochromasia 1+ Anisocytosis 2+ Macrocytosis 1+ PT 22.1 H INR 1.9 APTT 39.6 H Discharge Plan Triage Chief Complaint: Other, Pain/Inj ED Provider: Cory Barksdale Dx/Rx/DC Orders Clinical Impression: Anemia of chronic disorder, Skin hemorrhage, Current use of shelter anticoagulation, ESRD (end stage renal disease) Instructions: ED Post Op Wound Check, Bleeding Prescriptions: No Action aspirin [Adult Aspirin Regimen] 81 mg tablet,delayed release (DR/EC) 81 mg PO DAILY midodrine 10 mg tablet 10 mg PO TID sevelamer carbonate 800 mg tablet 800 mg PO TID Patient Comments: TAKE 3 TABLETS BY MOUTH THREE TIMES DAILY WITH MEALS warfarin 4 mg tablet 4 mg PO MOTUWETHFR Protocol: Dose Management Condition: Friday Dose/Route: 2 mg Instruction: 1 x 2 mg tablet Condition: Friday Dose/Route: 4 mg Instruction: 1 x 4 mg tablet Condition: Friday Dose/Route: 4 mg Instruction: 1 x 4 mg tablet Condition: Friday Dose/Route: 4 mg Instruction: 1 x 4 mg tablet Condition: Dose/Route: 4 mg Instruction: 1 x 4 mg tablet Condition: Friday Dose/Route: 4 mg Instruction: 1 x 4 mg tablet Condition: Friday Dose/Route: 2 mg Instruction: 1 x 2 mg tablet Protocol Text: Adjustment Start Date: 04/10/23 INR Value: 2.0 INR Date: 03/20/23 Recheck Date: 04/18/23 warfarin 2 mg tablet 2 mg PO SUSA Protocol: Dose Management Condition: Friday Dose/Route: 2 mg Instruction: 1 x 2 mg tablet Condition: Friday Dose/Route: 4 mg Instruction: 1 x 4 mg tablet Condition: Friday Dose/Route: 4 mg Instruction: 1 x 4 mg tablet Condition: Friday Dose/Route: 4 mg Instruction: 1 x 4 mg tablet Condition: Dose/Route: 4 mg Instruction: 1 x 4 mg tablet Condition: Friday Dose/Route: 4 mg Instruction: 1 x 4 mg tablet Condition: Friday Dose/Route: 2 mg Instruction: 1 x 2 mg tablet Protocol Text: Adjustment Start Date: 04/10/23 INR Value: 2.0 INR Date: 03/20/23 Recheck Date: 04/18/23 (DME) BP monitor large cuff See Rx Instructions .Route .MEDSUPPLY Qty: 1 0RF Rx Instructions: As directed Primary Care Provider: Harpreet Ackerman Referrals: Harpreet Ackerman MD [Primary Care Provider] - Activity Restrictions/Additional Instructions: Please continue to care for your wounds as directed by your outpatient facility. Once you remove the bandage that was applied in the ER you will notice a area of dark or black foam which is the Surgicel used to cauterize your bleeding wound. This should fall off with just simple soap and water. If you have return of bleeding or any further concerns please return for repeat evaluation. Disposition Disposition: Home, Self Care Discharge Date/Time: 07/21/23 08:33
[2023-07-21 05:54] LABS: Absolute Lymphocyte Count 1.39 X10^3/uL (0.83-4.51); Absolute Neutrophil Count 4.5 X10^3/uL (2.0-7.7); Basophil# 0.06 X10^3/uL; Basophil% 0.8 % (0-1); Eosinophil# 0.19 X10^3/uL; Eosinophils% 2.7 % (0-5); Hematocrit 23.1 % (40-54); Hemoglobin 6.7 g/dL (13.0-16.5); Lymphocyte # 1.39 X10^3/ul (0.83-4.51); Lymphocyte % 19.6 % (19-41); Mean Corpuscular Hgb 28.4 pg (27.0-32.0); Mean Corpuscular Volume 97.9 fL (80-94); Mean Platelet Vol. 10.7 fl (6.2-12.0); Monocyte# 0.88 X10^3/uL; Monocyte% 12.4 % (0-10); NRBC Flagged by Analyzer 0 % (0-5); Neutrophil # 4.54 X10^3/uL (2.7-7.7); Neutrophil % 63.9 % (47-70); POSITIVE MORPHOLOGY YES; Platelet Count 281 K/mm3 (150-450); RBC Distribution Width CV 21.3 % (11.6-14.6); RBC Distribution Width SD 75.9 fl (35.1-43.9); Red Blood Count 2.36 M/mm3 (4.6-6.2); White Blood Count 7.1 K/mm3 (4.4-11.0)
[2023-07-21 06:00] LABS: Differential Indicated SCAN CRITERIA MET
[2023-07-21 06:06] LABS: International Normalized Ratio 1.9; Prothrombin Time (Protime)PT. 22.1 SECONDS (11.7-14.9)
[2023-07-21 06:07] LABS: Partial Thromboplast Time 39.6 Seconds (24.1-36.2)
--- NOTE | 2023-07-21 06:15 | ED.RN ---
DR REQUESTING LAB RESULTS FOR MOST RECENT STAY AT [facility]
--- NOTE | 2023-07-21 06:16 | ED.RN ---
PHYSICIAN REQUESTING LAB RESULTS FROM MOST RECENT STAY AT [facility]. AUTHORIZATION FOR RELEASE OF RECORDS SIGNED BY PATIENT. TRYING TO GET AHOLD OF NURSING STATISTICAL ASSISTANT AT [facility] FOR FAX TO SEND TO GET RECORDS RELEASED.
[2023-07-21 07:05] LABS: Anisocytosis 2+; Macrocytosis 1+
[2023-07-21 07:06] LABS: Hypochromasia 1+
[2023-07-21 08:32] VITALS: RESP 18
== END 2023-07-21 08:33 | disposition home or self-care (01) ==
PROVIDERS: Emergency Provider Emergency Medicine; PCP Orthopaedic Surgery; Visit Provider Emergency Medicine
DX: D64.9 Anemia, unspecified (principal); Z99.2 Dependence on renal dialysis; N18.6 End stage renal disease; I48.0 Paroxysmal atrial fibrillation; S21.209A Unspecified open wound of unspecified back wall of thorax without penetration into thoracic cavity, initial encounter; F12.90 Cannabis use, unspecified, uncomplicated; I25.2 Old myocardial infarction; G47.33 Obstructive sleep apnea (adult) (pediatric); E66.9 Obesity, unspecified; Z79.01 Long term (current) use of 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s; Z86.16 Personal history of COVID-19; Z86.711 Personal history of pulmonary embolism; X58.XXXA Exposure to other specified factors, initial encounter
CPT/HCPCS: 36415; 85025; 85610; 85730; 99285

== ENCOUNTER 2023-08-19 14:59 | Outpatient (RCR) | payer MEDICARE, SELFPAY ==
[2023-08-20 10:06] LABS: INR Fingerstick 2.2; Prothrombin Time Fingerstick 24.2 SEC (11.7-14.9)
== END 2023-08-28 18:00 | disposition home or self-care (01) ==
LOC: LAB 14:59
PROVIDERS: PCP Orthopaedic Surgery; Referring Provider Internal Medicine Cardiovascular Disease; Visit Provider Internal Medicine Cardiovascular Disease
DX: I48.0 Paroxysmal atrial fibrillation (principal); I48.92 Unspecified atrial flutter; N18.6 End stage renal disease; Z79.01 Long term (current) use of 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s
CPT/HCPCS: 36416; 85610

== ENCOUNTER 2023-10-08 21:55 | Emergency (ER) | payer MEDICARE, SELFPAY ==
[2023-10-08 21:56] VITALS: BP 141/76; PULSE 105; RESP 18; TEMP 36.9; O2SAT 96
--- NOTE | 2023-10-08 22:47 | EX.ED.DYSGE1 ---
HPI History of Present Illness Chief Complaint: Abd Pain Informant: patient Narrative Narrative: 43-year-old male presenting to the emergency department for abdominal pain. Patient has a history of atrial fibrillation and end-stage renal disease. He is on warfarin. Patient states that in June he was at [facility]. He was having some abdominal pain and they performed a colonoscopy which they did not find anything . He states it went away and several weeks ago began to have left-sided abdominal pain that radiates to the back and towards the right side. He notes some constipation and he takes MiraLAX and gets small diarrhea-like movements. No vomiting but he does note some reflux symptoms. He states that his abdomen feels like there is a mass up underneath his rib cage. He has a chronic wound on the left side of his abdomen. He states that the calcification that is gotten better. He states he has had low-grade fevers. The patient states that he went to [facility] but they had a 6-hour wait so he came to this hospital. Patient notes that he had a side salad at lunch which caused some reflux issues. Per nursing he had some she does getting out of his vehicle before coming into the emergency department. Over the past couple weeks he has not talked to his doctors about this pain. He states that it has really started hurting since last Friday. Patient states that he is not currently on antibiotics and has not been on any for a while . Specifically he acknowledges over 1 month. 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) Central retinal artery occlusion of left eye (10/09/20) Chronic kidney disease-mineral and bone disorder Chronic pelvic pain in male Chronic ulcer of back COVID-19 virus detected (10/02/21) Daily headache Dental caries Dialysis AV fistula malfunction Dialysis patient ESRD on hemodialysis Essential (primary) hypertension Expressive aphasia (04/05/20) Hearing loss Hematuria History of bacterial endocarditis History of blood clots History of non-ST elevation myocardial infarction (NSTEMI) (11/08/19) History of pulmonary embolus (PE) History of venous thromboembolism 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 due to renal insufficiency Hypotension of hemodialysis 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 shelter current use of 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 Mechanical complication of arteriovenous fistula surgically created Medication side effects Mitral valve annular calcification Morbidly obese Non compliance w medication regimen Non-healing non-surgical wound Nonrheumatic mitral valve stenosis with insufficiency Obstructive sleep apnea Pain of right lower extremity Paroxysmal atrial fibrillation (06/10/20) Paroxysmal atrial flutter 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) Pelvic mass Postoperative complete heart block (08/21/21) Sepsis Thrombosis of kidney dialysis arteriovenous graft Unspecified symptoms and signs involving cognitive functions and awareness (04/05/20) Home Medications BP monitor #1 ea 07/17/21 [Rx Last Taken Unknown] aspirin 81 mg tablet,delayed release (Adult Aspirin Regimen) 81 mg PO DAILY 10/29/21 [History Last Taken Unknown] midodrine 10 mg tablet 10 mg PO TID 10/29/21 [History Last Taken Unknown] sevelamer carbonate 800 mg tablet 800 mg PO TID 06/25/22 [History Last Taken Unknown] warfarin 2 mg tablet 2 mg PO SUSA 06/21/23 [History Last Taken Unknown] warfarin 4 mg tablet 4 mg PO MOTUWETHFR 06/21/23 [History Last Taken Unknown] Allergy/AdvReac Type Severity Reaction Status Date / Time gabapentin Allergy Other Verified 10/08/23 21:56 Family History Other Adopted Surgical History History of angioplasty of peripheral vessel (08/28/21) History of cardioversion (12/02/18) history of cather replacement History of herniorrhaphy History of left heart catheterization (09/17/18) History of mitral valve replacement with bioprosthetic valve (08/21/21) History of repair of congenital cleft palate History of right and left heart catheterization (08/16/21) History of tooth extraction, class IV edentulism (09/11/21) Hx of mitral valve replacement Mechanical complication of dialysis catheter Status post creation of arteriovenous fistula Social History household members: none Smoking Status: Never smoker alcohol intake: never substance use type: marijuana what type of physical activity do you participate in: none ROS ROS ED Constitutional Constitutional ED: Reports fever(s) and subjective; Denies chills or weight loss Eyes Eyes: Denies change in vision or diplopia ENT ENT ED: Denies ear pain, rhinorrhea or sore throat Cardiovascular Cardiovascular: Denies chest pain, orthopnea, palpitations or racing heartbeat Respiratory/Chest Respiratory/Chest: Denies cough, dyspnea or orthopnea Gastrointestinal Gastrointestinal: Reports abdominal pain, constipation, diarrhea and other Details: Reflux symptoms after eating ; Denies nausea or vomiting Genitourinary Genitourinary ED: Denies dysuria, hematuria or urinary frequency Musculoskeletal Musculoskeletal: Reports back pain; Denies arthralgias or myalgias Integumentary Reports other Details: Chronic wound to the left side of his abdominal wall ; Denies abscess or rash Neurologic Neurologic: Denies headache(s) or weakness Psychiatric Psychiatric: Denies anxiety, depression, suicidal ideation or suicidal thoughts Endocrine Endocrinology: Denies polydipsia, polyphagia or polyuria Allergic/Immunologic Allergic/Immunologic ED: Denies mouth swelling, tongue swelling or urticaria EXAM Physical Exam Const Vital Signs: 10/08/23 21:56 Temperature 98.4 F Temperature Source Temporal Pulse Rate 105 H Respiratory Rate 18 Blood Pressure 141/76 H Blood Pressure Mean 97 Pulse Ox 96 Oxygen Delivery Method Room Air Positive well nourished, well developed and obese General Appearance ED: well developed Nutritional Appearance: obese HEENT Reports normocephalic, head/scalp atraumatic and moist mucous membranes Eyes PERRL and EOMs intact bilaterally Neck no lymphadenopathy, supple and no JVD Resp normal respiratory effort and clear to auscultation bilaterally Cardio regular rate, regular rhythm and no murmurs GI GI Narrative: Body habitus greatly limits the examination of the abdomen. I hear normal bowel sounds. It does not palpate as distended. He has chronic skin changes of skin the abdominal wall. There is a large dressing on the left side of his abdomen. As I start to remove this he screams and grabs my hand. However he is able to remove it himself without screaming. This reveals about a quarter sized area of open skin to the subcutaneous tissue with serosanguineous drainage. I do not appreciate significant cellulitic changes. Inspection: Negative for abdominal distention Auscultation: normoactive bowel sounds Palpation: soft and tender Back/Spine no CVA tenderness and normal ROM Extremity normal to inspection General Extremety ED: Negative for edema General Extremity: Negative for edema Neuro oriented x3 and CN's II-XII intact bilaterally Sensorium / Orientation: alert Motor Exam: strength 5/5 throughout Psych mental status grossly normal Mood & Affect: Negative for depressed or tearful Skin no rashes or lesions noted and no wounds MDM MDM MDM Narrative Medical decision making narrative: Differential diagnosis is broad and includes but not limited to pancreatitis partial bowel obstruction intra-abdominal abscess splenomegaly renal cyst reflux irritable bowel colitis. white count returns at 4.8 with hemoglobin 11.3. Platelet count of 228. No left shift. INR subtherapeutic at 1.6. Creatinine 11.60 and again he is a end-stage renal dialysis patient. Potassium is 4.7. BUN of 50. Lipase normal at 49. Normal bilirubin. CT of the abdomen pelvis without contrast was obtained. I do not see a mass that the patient was worried about. I do not see any significant inflammatory changes in the abdomen. There is chronic changes of the abdominal wall but no obvious abscess. I doubt that the patient has thrombotic disease given the weeks of symptoms. Patient received a dose of morphine for pain while we evaluated it. This point I am not seeing an acute emergency that would require the patient to be hospitalized. He is tolerating p.o. and I believe he can follow-up with primary care. As far as his subtherapeutic INR he should Double his Coumadin tonight and tomorrow night and have his INR rechecked on Friday. History & Record Review Discussion w/independent historian: Patient Additional record(s) reviewed:: Prior inpatient record, Prior outpatient record, Prior ED visit and Prior labs Lab Data Attestation: I reviewed the patient's lab results. Labs: Laboratory Results - last 24 hr 10/08/23 23:10 WBC 4.8 RBC 4.29 L Hgb 11.3 L Hct 37.6 L MCV 87.6 MCH 26.3 L MCHC 30.1 L RDW Std Deviation 61.2 H RDW Coeff of Lance 19.5 H Plt Count 228 MPV 10.7 Immature Gran % (Auto) 0.400 Neut % (Auto) 57.2 Lymph % (Auto) 23.3 [place] % (Auto) 15.0 H Eos % (Auto) 3.1 Baso % (Auto) 1.0 Absolute Neuts (auto) 2.8 Absolute Lymphs (auto) 1.12 Nucleated RBC % 0 PT 19.0 H INR 1.6 Sodium 133 L Potassium 4.7 Chloride 96 L Carbon Dioxide 26.0 Anion Gap 11 BUN 50 H Creatinine 11.60 H* Est GFR (MDRD) Af Amer 6 L Est GFR (MDRD) Non-Af 5 L BUN/Creatinine Ratio 4.3 L Glucose 97 Calcium 9.3 Total Bilirubin 0.40 AST 16 ALT 12 L Alkaline Phosphatase 134 H Total Protein 8.8 H Albumin 3.4 Globulin 5.4 H Albumin/Globulin Ratio 0.6 L Lipase 49 Radiography Diagnostic Testing: Clinical Impression(s) from Imaging Studies Abdomen/Pelvis CT 10/08/23 23:17 IMPRESSION: No acute intra-abdominal abnormality. Chronic findings as described above. 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 current use of 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, Open wound of abdominal wall, Paroxysmal atrial fibrillation, GERD (gastroesophageal reflux disease), Abdominal pain, ESRD (end stage renal disease) Prescriptions: No Action aspirin [Adult Aspirin Regimen] 81 mg tablet,delayed release (DR/EC) 81 mg PO DAILY midodrine 10 mg tablet 10 mg PO TID sevelamer carbonate 800 mg tablet 800 mg PO TID Patient Comments: TAKE 3 TABLETS BY MOUTH THREE TIMES DAILY WITH MEALS warfarin 4 mg tablet 4 mg PO MOTUWETHFR Protocol: Dose Management Condition: Friday Dose/Route: 3 mg Instruction: 1.5 x 2 mg tablets Condition: Friday Dose/Route: 3 mg Instruction: 1.5 x 2 mg tablets Condition: Friday Dose/Route: 3 mg Instruction: 1.5 x 2 mg tablets Condition: Friday Dose/Route: 3 mg Instruction: 1.5 x 2 mg tablets Condition: Dose/Route: 3 mg Instruction: 1.5 x 2 mg tablets Condition: Friday Dose/Route: 3 mg Instruction: 1.5 x 2 mg tablets Condition: Friday Dose/Route: 3 mg Instruction: 1.5 x 2 mg tablets Protocol Text: Adjustment Start Date: Friday08/20/23 INR Value: 2.2 INR Date: 08/19/23 Recheck Date: 09/19/23 warfarin 2 mg tablet 2 mg PO SUSA Protocol: Dose Management Condition: Friday Dose/Route: 3 mg Instruction: 1.5 x 2 mg tablets Condition: Friday Dose/Route: 3 mg Instruction: 1.5 x 2 mg tablets Condition: Friday Dose/Route: 3 mg Instruction: 1.5 x 2 mg tablets Condition: Friday Dose/Route: 3 mg Instruction: 1.5 x 2 mg tablets Condition: Dose/Route: 3 mg Instruction: 1.5 x 2 mg tablets Condition: Friday Dose/Route: 3 mg Instruction: 1.5 x 2 mg tablets Condition: Friday Dose/Route: 3 mg Instruction: 1.5 x 2 mg tablets Protocol Text: Adjustment Start Date: Friday08/20/23 INR Value: 2.2 INR Date: 08/19/23 Recheck Date: 09/19/23 (DME) BP monitor large cuff See Rx Instructions .Route .MEDSUPPLY Qty: 1 0RF Rx Instructions: As directed Primary Care Provider: Barb Carrillo Referrals: Harpreet Ackerman MD [Non-Staff] - Barb Carrillo, [employer] [Primary Care Provider] - 2 Days (For re check of INR.) Disposition Disposition: Home, Self Care
--- NOTE | 2023-10-08 23:17 | CT_ITS ---
INDICATION: luq abdominal pain EXAMINATION: CT Abdomen And Pelvis W/O Contrast Injection TECHNIQUE: Helically acquired images were obtained of the abdomen and pelvis with sagittal and coronal reconstructed images. Individualized dose optimization techniques were used for this CT. IV contrast dosage and agent: None. Oral contrast: None. COMPARISON: 11/21/2022 CT. FINDINGS: VESSELS: No abdominal aortic aneurysm. LIVER: No intrahepatic or extrahepatic biliary duct dilation. GALLBLADDER: No calcified stones. No evidence of cholecystitis. PANCREAS: No focal solid or cystic mass. No evidence of pancreatitis. SPLEEN: Normal. ADRENAL GLANDS: Normal. KIDNEYS AND URETERS: Bilateral renal atrophy. Bilateral renal cysts and calcifications. No hydronephrosis or hydroureter. No significant asymmetric perinephric stranding. URINARY BLADDER: Unremarkable. BOWEL: No evidence of diverticulosis or diverticulitis. Appendix appears normal. No evidence of bowel obstruction. REPRODUCTIVE ORGANS: Unremarkable. PERITONEUM: No intraabdominal free fluid or free air. LYMPH NODES: No pathologically enlarged mesenteric or retroperitoneal lymph nodes. ABDOMINAL WALL: No abdominal or pelvic wall hernia. Stable numerous subcutaneous collateral vessels. BONES: Stable calcified mass with erosive changes at the right pubic ramus. Stable erosive changes with calcifications in the bilateral sacroiliac joints. Stable calcification with mild erosive changes in the spinous process of L4. LOWER CHEST: Visualized lung bases are unremarkable. CT/Abdomen/Pelvis without Cont IMPRESSION: No acute intra-abdominal abnormality. Chronic findings as described above. Electronically Signed: Harpreet Norton DO at 0:48 EST ,
[2023-10-08 23:18] LABS: Absolute Lymphocyte Count 1.12 X10^3/uL (0.83-4.51); Absolute Neutrophil Count 2.8 X10^3/uL (2.0-7.7); Basophil# 0.05 X10^3/uL; Eosinophil# 0.15 X10^3/uL; Eosinophils% 3.1 % (0-5); Hematocrit 37.6 % (40-54); Hemoglobin 11.3 g/dL (13.0-16.5); Lymphocyte # 1.12 X10^3/ul (0.83-4.51); Lymphocyte % 23.3 % (19-41); Mean Corp Hgb Conc 30.1 g/dL (32-36); Mean Corpuscular Hgb 26.3 pg (27.0-32.0); Mean Corpuscular Volume 87.6 fL (80-94); Mean Platelet Vol. 10.7 fl (6.2-12.0); Monocyte# 0.72 X10^3/uL; NRBC Flagged by Analyzer 0 % (0-5); Neutrophil # 2.75 X10^3/uL (2.7-7.7); Neutrophil % 57.2 % (47-70); Platelet Count 228 K/mm3 (150-450); RBC Distribution Width CV 19.5 % (11.6-14.6); RBC Distribution Width SD 61.2 fl (35.1-43.9); Red Blood Count 4.29 M/mm3 (4.6-6.2); White Blood Count 4.8 K/mm3 (4.4-11.0)
[2023-10-08 23:26] LABS: International Normalized Ratio 1.6
[2023-10-08] MEDS: Morphine 4 MG/ML Syringe IV (23:28)
[2023-10-08 23:44] LABS: ALB/GLOB Ratio 0.6 RATIO (0.9-2.4); AST(SGOT) 16 U/L (15-37); Alanine Aminotransfer ALT/SGPT 12 U/L (16-61); Albumin, Serum 3.4 g/dL (3.2-5.0); Alkaline Phosphatase 134 U/L (45-117); Anion Gap 11 (5-15); BUN 50 mg/dL (7-18); BUN/Creat Ratio 4.3 RATIO (10-20); Calcium,Total 9.3 mg/dL (8.5-10.1); Chloride 96 mmol/L (98-107); EST Glomerular Filtration Rate 5 mL/min (>60); Est Glom Filt Rate - Afr Amer 6 mL/min (>60); Globulin 5.4 g/dL (2.2-4.2); Glucose 97 mg/dL (74-106); Lipase 49 U/L (13-75); Potassium 4.7 mmol/L (3.5-5.1); Protein, Total 8.8 g/dL (6.4-8.2); Sodium Level 133 mmol/L (136-145)
[2023-10-09 01:08] VITALS: BP 115/58; PULSE 88; RESP 15; TEMP 36.6; O2SAT 98
== END 2023-10-09 01:10 | disposition home or self-care (01) ==
PROVIDERS: Emergency Provider Emergency Medicine; PCP Nurse Practitioner Family; Visit Provider Emergency Medicine
DX: S31.109A Unspecified open wound of abdominal wall, unspecified quadrant without penetration into peritoneal cavity, initial encounter (principal); N18.6 End stage renal disease; I48.0 Paroxysmal atrial fibrillation; K21.9 Gastro-esophageal reflux disease without esophagitis; R10.9 Unspecified abdominal pain; F12.90 Cannabis use, unspecified, uncomplicated; G47.33 Obstructive sleep apnea (adult) (pediatric); I25.2 Old myocardial infarction; E66.9 Obesity, unspecified; Z86.711 Personal history of pulmonary embolism; Z86.16 Personal history of COVID-19; Z79.01 Long term (current) use of 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s; X58.XXXA Exposure to other specified factors, initial encounter
CPT/HCPCS: 74176; 80053; 83690; 85025; 85610; 96374; 99283; A4216

== ENCOUNTER 2023-10-09 12:10 | Outpatient (RCR) | payer MEDICARE, SELFPAY ==
[2023-10-09 14:53] LABS: International Normalized Ratio 1.8; Prothrombin Time (Protime)PT. 20.7 SECONDS (11.7-14.9)
== END 2023-10-09 18:00 | disposition home or self-care (01) ==
LOC: LAB 12:10
PROVIDERS: PCP Nurse Practitioner Family; Referring Provider Internal Medicine Cardiovascular Disease; Visit Provider Internal Medicine Cardiovascular Disease
DX: I48.0 Paroxysmal atrial fibrillation (principal); I48.92 Unspecified atrial flutter; N18.6 End stage renal disease; Z79.01 Long term (current) use of 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s
CPT/HCPCS: 36415; 85610

== ENCOUNTER 2023-11-11 15:38 | Inpatient (IN) | payer MEDICARE, SELFPAY ==
[2023-11-11] VITALS (14 sets, daily range): BP systolic 90–130; BP diastolic 54–95; PULSE 102–126; RESP 11–22; TEMP 36.6–37; O2SAT 83–100; BMI 37.1
[2023-11-11] MEDS: 0.9% Normal Saline (500mL Bag) 500 ML 999 ML IV (16:00)
--- NOTE | 2023-11-11 16:09 | CT_ITS ---
STUDY: CT ABDOMEN AND PELVIS WITHOUT CONTRAST REASON FOR EXAM: Male, 43 years old. abdominal pain RADIATION DOSAGE (If Supplied By Facility): CTDIvol = ( 23.12 ) mGy, DLP = ( 1149.54 ) mGycm TECHNIQUE: Transaxial images were obtained from the dome of the diaphragm to the symphysis pubis without oral contrast, and without intravenous contrast. Sagittal and coronal images were reconstructed. Individualized dose optimization techniques were used for this CT. COMPARISON: October 08, 2023. FINDINGS: The visualized lung bases are unremarkable. The visualized portions of the heart are within normal limits. Normal liver. Normal gallbladder and extrahepatic biliary system. Normal spleen. Normal pancreas. Normal bilateral adrenal glands. Bilateral renal cysts. Normal visualized stomach. Normal small intestine. Normal colon. The appendix is visualized and appears normal. Normal abdominal aorta. Normal inferior vena cava. Normal retroperitoneum. Normal urinary bladder. Normal abdominal wall. Stable calcified mass with erosion of the right pubic tubercle similar to previous study. Vertebral scoliosis. CT/Abdomen/Pelvis without Cont IMPRESSION: Bilateral renal cysts. No sign of bowel obstruction. Electronically Signed: Kendall Rock DO at 17:[address] [facility] Reading Location ID and State: [facility] / [place] Tel [phone], Service support ,
--- NOTE | 2023-11-11 16:09 | EKG12_ITS ---
Test Reason : GENERAL Blood Pressure : / mmHG Vent. Rate : 122 BPM Atrial Rate : 122 BPM P-R Int : 192 ms QRS Dur : 058 ms QT Int : 320 ms P-R-T Axes : 000 162 079 degrees QTc Int : 456 ms Sinus tachycardia Right axis deviation Low voltage QRS Cannot rule out Anteroseptal infarct , age undetermined Abnormal ECG Confirmed by Sean Ruiz ([id number]), writer editor MARGARITO CHANDLER ([id number]) on 11/12/2023 10:58:38 AM Referred By: Confirmed By:Sean Ruiz
[2023-11-11] MEDS: Ondansetron 4 MG/2 ML Vial IV (16:14)
[2023-11-11] MEDS: fentaNYL 100 MCG/2 ML Ampul 25 MCG IV ×3 (16:15→19:28)
--- NOTE | 2023-11-11 16:17 | EX.ED.DYSGE1 ---
HPI History of Present Illness Chief Complaint: Wound Narrative Narrative: 43-year-old male end-stage renal disease on dialysis Friday, Friday, Friday and on Coumadin for A-fib/a flutter. He is presenting with bleeding of the external abdominal ulcer/cellulitis region which is chronic. He states started about 230. He had a lot of bleeding. EMS reports a lot of blood in his home. Patient states he has not had this bleeding in a long time. He states the doctor who follows him is at [facility](Dr. [place]) infectious disease. his has been performing dressing changes for him at home. He has some recent pain which was reported which feels like squeezing in the abdomen last about 4 to 5 minutes at a time. This is after resting. Patient denies any abdominal wall trauma. He reports he has not had any surgery by him. Patient's INR has not been checked recently and he admits that he has been using some ibuprofen at home over the counter for pain in his abdomen. 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) Central retinal artery occlusion of left eye (10/09/20) Chronic kidney disease-mineral and bone disorder Chronic pelvic pain in male Chronic ulcer of back COVID-19 virus detected (10/02/21) Daily headache Dental caries Dialysis AV fistula malfunction Dialysis patient ESRD on hemodialysis Essential (primary) hypertension Expressive aphasia (04/05/20) Hearing loss Hematuria History of bacterial endocarditis History of blood clots History of non-ST elevation myocardial infarction (NSTEMI) (11/08/19) History of pulmonary embolus (PE) History of venous thromboembolism 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 due to renal insufficiency Hypotension of hemodialysis 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 senior living current use of 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 Mechanical complication of arteriovenous fistula surgically created Medication side effects Mitral valve annular calcification Morbidly obese Non compliance w medication regimen Non-healing non-surgical wound Nonrheumatic mitral valve stenosis with insufficiency Obstructive sleep apnea Pain of right lower extremity Paroxysmal atrial fibrillation (06/10/20) Paroxysmal atrial flutter 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) Pelvic mass Postoperative complete heart block (08/21/21) Sepsis Thrombosis of kidney dialysis arteriovenous graft Unspecified symptoms and signs involving cognitive functions and awareness (04/05/20) Home Medications BP monitor #1 ea 07/17/21 [Rx Last Taken Unknown] aspirin 81 mg tablet,delayed release (Adult Aspirin Regimen) 81 mg PO DAILY 10/29/21 [History Last Taken Unknown] midodrine 10 mg tablet 10 mg PO TID 10/29/21 [History Last Taken Unknown] sevelamer carbonate 800 mg tablet 800 mg PO TID 06/25/22 [History Last Taken Unknown] sucroferric oxyhydroxide 500 mg chewable tablet (Velphoro) 1,500 mg PO TIDCM 11/11/23 [History Last Taken Unknown] warfarin 3 mg tablet 3 mg PO DAILY 11/11/23 [History Last Taken Unknown] Allergy/AdvReac Type Severity Reaction Status Date / Time gabapentin Allergy Other Verified 10/08/23 21:56 Family History Other Adopted Surgical History History of angioplasty of peripheral vessel (08/28/21) History of cardioversion (12/02/18) history of cather replacement History of herniorrhaphy History of left heart catheterization (09/17/18) History of mitral valve replacement with bioprosthetic valve (08/21/21) History of repair of congenital cleft palate History of right and left heart catheterization (08/16/21) History of tooth extraction, class IV edentulism (09/11/21) Hx of mitral valve replacement Mechanical complication of dialysis catheter Status post creation of arteriovenous fistula Social History household members: none Smoking Status: Never smoker alcohol intake: never substance use type: marijuana what type of physical activity do you participate in: none ROS ROS ED Constitutional Constitutional ED: Denies chills, fever(s) or sweats Eyes Eyes: Denies blurry vision or change in vision ENT ENT ED: Denies ear pain or sore throat Cardiovascular Cardiovascular: Denies chest pain, palpitations or racing heartbeat Respiratory/Chest Respiratory/Chest: Denies cough, dyspnea or sputum Gastrointestinal Gastrointestinal: Reports abdominal pain; Denies constipation, diarrhea, nausea or vomiting Genitourinary Genitourinary ED: Denies dysuria, hematuria or urinary frequency Musculoskeletal Musculoskeletal: Denies arthralgias, myalgias or neck pain Integumentary Reports other Details: Multiple abdominal wounds. Bleeding from left lower abdomen ulcer. ; Denies abscess, Abrasions or rash Neurologic Neurologic: Denies headache(s), paresthesias or weakness Psychiatric Psychiatric: Denies anxiety, depression, suicidal ideation or suicidal thoughts Endocrine Endocrinology: Denies polydipsia or polyuria EXAM Physical Exam Const Vital Signs: 11/11/23 15:39 11/11/23 16:05 11/11/23 16:39 Temperature 98.6 F Temperature Source Oral Pulse Rate 126 H 126 H Respiratory Rate 18 22 H Blood Pressure 129/75 H 116/84 H Blood Pressure Mean 93 94 Blood Pressure Source Blood Pressure Position Blood Pressure Location Pulse Ox 83 94 100 Oxygen Delivery Method Room Air Nasal Cannula Room Air Oxygen Flow Rate (L/min) 3 11/11/23 16:43 11/11/23 16:56 11/11/23 18:23 Temperature 98.6 F 98.1 F Temperature Source Oral Oral Pulse Rate 117 H 115 H 108 H Respiratory Rate 18 14 14 Blood Pressure 116/84 H 101/64 90/56 L Blood Pressure Mean 94 76 67 Blood Pressure Source Blood Pressure Position Blood Pressure Location Pulse Ox 100 100 100 Oxygen Delivery Method Room Air Room Air Nasal Cannula Oxygen Flow Rate (L/min) 2 11/11/23 19:26 11/11/23 21:11 11/11/23 21:26 Temperature 98.1 F 98.2 F 98.1 F Temperature Source Oral Oral Oral Pulse Rate 102 H 105 H 115 H Respiratory Rate 16 11 L 15 Blood Pressure 102/62 115/95 H 102/54 L Blood Pressure Mean 75 101 70 Blood Pressure Source Monitor Monitor Blood Pressure Position Semi-Fowlers Semi-Fowlers Blood Pressure Location Right Forearm Right Forearm Pulse Ox 100 100 99 Oxygen Delivery Method Nasal Cannula Room Air Room Air Oxygen Flow Rate (L/min) 2 11/11/23 21:00 11/11/23 22:00 Temperature 98 F 98 F Temperature Source Temporal Oral Pulse Rate 109 H 110 H Respiratory Rate 12 19 H Blood Pressure 102/59 L 102/58 L Blood Pressure Mean 73 72 Blood Pressure Source Blood Pressure Position Blood Pressure Location Pulse Ox 98 100 Oxygen Delivery Method Room Air Room Air Oxygen Flow Rate (L/min) Positive well nourished General Appearance ED: NAD HEENT Reports moist mucous membranes Eyes PERRL and EOMs intact bilaterally Resp normal respiratory effort Cardio regular rhythm Rate: tachycardic GI GI Narrative: Generalized tenderness to palpation. There is a few ulcers noted on the lower abdomen. On the left side of the abdomen there is a bleeding ulcer which has controlled bleeding with direct pressure since he has been here. There is slight bruising noted here. Neuro oriented x3 and CN's II-XII intact bilaterally Sensorium / Orientation: alert Psych mental status grossly normal Skin Skin Narrative: As described above. MDM MDM MDM Narrative Medical decision making narrative: Patient presenting with abdominal wall bleeding. He is also on Coumadin and has been taking ibuprofen. Differential includes cellulitis, acute blood loss anemia, bleeding ulcer of the abdominal wall, Coumadin coagulopathy, sepsis, dehydration, electrolyte abnormalities. Given the patient is tachycardic and hypoxic sepsis workup was pursued. Patient given 500 cc of normal saline. This is because she is a dialysis patient. Medicated with 30 cc/kg. He is still tachycardic. Typed and screened for transfusion. Patient pancultured. Will obtain CT of the abdomen pelvis without contrast. CBC shows white blood cell count 6.2. Hemoglobin is 9.4 with his previous hemoglobin being a couple points higher at 11.3 in September. Creatinine 10.6 and baseline for end-stage renal disease on dialysis. Lactic acid is normal. INR is subtherapeutic at 1.8. Liver function testing is unremarkable. We were able to control the bleeding of the abdominal wall over the patient described several doses of fentanyl to control his pain which he states is in the area of the bleeding. We were able to take down the dressing and there is no current bleeding pressure dressing contrast but given the constant pain we did discuss this with [facility] as the patient will need to be evaluated by his infectious disease physician as well as the other physician to manage his ulcers of his abdomen. Patient was amenable to this plan. He was initially given a 500 cc bolus and his blood pressure did drop so we did type and crossmatch him for blood and gave him 2 units. It does sound as if he lost a lot of blood today although I do not have any pictures of the seen he is covered in blood in the bed and has multiple bloody dressings.Asymptomatic hypertension asymptomatic hypertension came back at patient's blood pressure was 90/56 prior to starting the blood. He is continue to have improved blood pressures. Still can continuing to attend to transfer the patient as he was accepted to [facility] and we are waiting for bed. Impression: 1. Bleeding abdominal wall ulcer 2. Acute blood loss anemia 3. Abdominal pain Lab Data Attestation: I reviewed the patient's lab results. Labs: Laboratory Results - last 24 hr 11/11/23 11/11/23 11/11/23 15:55 16:00 16:30 WBC 6.2 RBC 3.50 L Hgb 9.4 L Hct 30.9 L MCV 88.3 MCH 26.9 L MCHC 30.4 L RDW Std Deviation 64.0 H RDW Coeff of Lance 19.9 H Plt Count 199 MPV 10.7 Immature Gran % (Auto) 0.600 Neut % (Auto) 56.6 Lymph % (Auto) 22.0 Kerr % (Auto) 18.1 H Eos % (Auto) 2.4 Baso % (Auto) 0.3 Absolute Neuts (auto) 3.5 Absolute Lymphs (auto) 1.37 Nucleated RBC % 0 PT 20.8 H INR 1.8 APTT 39.6 H Sodium 139 Potassium 4.8 Chloride 99 Carbon Dioxide 28.0 Anion Gap 12 BUN 53 H Creatinine 10.60 H* Estim Creat Clear Calc 11.77 Est GFR (MDRD) Af Amer 7 L Est GFR (MDRD) Non-Af 6 L BUN/Creatinine Ratio 5.0 L Glucose 106 Lactic Acid 1.7 Calcium 9.3 Total Bilirubin 0.40 AST 18 ALT 14 L Alkaline Phosphatase 137 H Total Protein 8.2 Albumin 3.0 L Globulin 5.2 H Albumin/Globulin Ratio 0.6 L Blood Type B POSITIVE Antibody Screen NEGATIVE Crossmatch See Detail Radiography Diagnostic Testing: Clinical Impression(s) from Imaging Studies Abdomen/Pelvis CT 11/11/23 16:09 IMPRESSION: Bilateral renal cysts. No sign of bowel obstruction. Electronically Signed: Kendall Rock DO at 17:15 EST , Discharge Plan Triage Chief Complaint: Wound ED Provider: Greg Lorenzo Dx/Rx/DC Orders Prescriptions: No Action aspirin [Adult Aspirin Regimen] 81 mg tablet,delayed release (DR/EC) 81 mg PO DAILY midodrine 10 mg tablet 10 mg PO TID sevelamer carbonate 800 mg tablet 800 mg PO TID Patient Comments: TAKE 3 TABLETS BY MOUTH THREE TIMES DAILY WITH MEALS Velphoro 500 mg tablet,chewable 1,500 mg PO TIDCM Patient Comments: CRUSH OR CHEW AND SWALLOW 3 TABLETS 3 TIMES A DAY WITH MEALS warfarin 3 mg tablet 3 mg PO DAILY Patient Comments: Take 1 tablet by mouth daily as directed. (DME) BP monitor large cuff See Rx Instructions .Route .MEDSUPPLY Qty: 1 0RF Rx Instructions: As directed Primary Care Provider: Barb Carrillo Referrals: Barb Carrillo, [employer] [Primary Care Provider] -
[2023-11-11 16:34] LABS: Absolute Lymphocyte Count 1.37 X10^3/uL (0.83-4.51); Absolute Neutrophil Count 3.5 X10^3/uL (2.0-7.7); Basophil# 0.02 X10^3/uL; Basophil% 0.3 % (0-1); Eosinophil# 0.15 X10^3/uL; Eosinophils% 2.4 % (0-5); Hematocrit 30.9 % (40-54); Hemoglobin 9.4 g/dL (13.0-16.5); Lymphocyte # 1.37 X10^3/ul (0.83-4.51); Mean Corp Hgb Conc 30.4 g/dL (32-36); Mean Corpuscular Hgb 26.9 pg (27.0-32.0); Mean Corpuscular Volume 88.3 fL (80-94); Mean Platelet Vol. 10.7 fl (6.2-12.0); Monocyte# 1.13 X10^3/uL; Monocyte% 18.1 % (0-10); NRBC Flagged by Analyzer 0 % (0-5); Neutrophil # 3.52 X10^3/uL (2.7-7.7); Neutrophil % 56.6 % (47-70); Platelet Count 199 K/mm3 (150-450); RBC Distribution Width CV 19.9 % (11.6-14.6); White Blood Count 6.2 K/mm3 (4.4-11.0)
--- NOTE | 2023-11-11 16:49 | ED.RN ---
large amount of oozing blood from abd wound. soaking through multiple trauma dressings. pressure being applied. surgifoam applied and trauma dressing applied, held with pressure of bernardo wraps. bleeding is slowing.
[2023-11-11 16:52] LABS: International Normalized Ratio 1.8; Prothrombin Time (Protime)PT. 20.8 SECONDS (11.7-14.9)
[2023-11-11 16:54] LABS: Partial Thromboplast Time 39.6 Seconds (24.1-36.2)
[2023-11-11 17:11] LABS: Lactic Acid 1.7 mmol/L (0.4-1.9)
[2023-11-11 17:13] LABS: ALB/GLOB Ratio 0.6 RATIO (0.9-2.4); AST(SGOT) 18 U/L (15-37); Alanine Aminotransfer ALT/SGPT 14 U/L (16-61); Alkaline Phosphatase 137 U/L (45-117); Anion Gap 12 (5-15); BUN 53 mg/dL (7-18); Calcium,Total 9.3 mg/dL (8.5-10.1); Chloride 99 mmol/L (98-107); EST Glomerular Filtration Rate 6 mL/min (>60); Est Glom Filt Rate - Afr Amer 7 mL/min (>60); Estimated Creatinine Clearance 11.77 ml/min; Globulin 5.2 g/dL (2.2-4.2); Glucose 106 mg/dL (74-106); Potassium 4.8 mmol/L (3.5-5.1); Protein, Total 8.2 g/dL (6.4-8.2); Sodium Level 139 mmol/L (136-145)
--- NOTE | 2023-11-11 18:05 | NURSING ---
CALLED [facility] ABOUT TRANSFER
[2023-11-11] MEDS: fentaNYL 100 MCG/2 ML Ampul 50 MCG IV (23:28)
--- NOTE | 2023-11-11 23:58 | ED.RN ---
VITALS ON TAR ENTERED AT 2306 ENTERED IN ERROR.
[2023-11-12] VITALS (16 sets, daily range): BP systolic 95–280; BP diastolic 35–78; PULSE 75–111; RESP 14–18; TEMP 36.1–36.9; O2SAT 95–100; BMI 37.5; BMI 36.2; BMI 36.1; BMI 35.2
--- NOTE | 2023-11-12 00:36 | PCM.HP.STD ---
Documented by User: Dr. Wild Stevens DO 11/12/23 05:30 HPI - General General Date of Admission: 11/12/23 Date of Service: 11/12/23 Chief Complaint: Bleeding from abdomen with chronic cellulitis. HPI Narrative REJI WESTON, is a 43 M with a complex past medical history of obesity; with BMI of 37.1 this admission, obstructive sleep apnea, ESRD on HD; (M-W-F), chronic atrial fibrillation/flutter; on Coumadin, coronary artery disease; status post non-ST elevation DE (2019), history of bacterial endocarditis, history of VTE, Blind in Left Eye; after central retinal artery occlusion (2020), history of COVID-19 and chronic abdominal wall ulcer with history of sepsis and frequent cellulitis followed by Dr. [place] of [place] at [facility] with occasional bleeding and routine dressing changes at home who presents to [facility] ER complaining of bleeding from his abdomen. Mr. Weston reports his symptoms began approximately 2:30 PM earlier on November 11, 2023, with copious bleeding that is much more than previous occasions along with abdominal pain. He describes the abdominal pain as squeezing in nature, lasting approximately 4-5 minutes at a time with pain made worse with palpation and is improved after IV opiates. He denies recent abdominal wall trauma or recent abdominal surgery but he does admit to taking frequent doses of ibuprofen for pain and he states his INR has not been checked recently. He was set up by the original ER attending / Dr. Lorenzo to transfer to [facility] - but because there is a delay due to decreased bed availability the hospitalist service has been contacted to write orders for this patient until he can safely transfer. He was then admitted to the general medical floor for ongoing care for a stay that is expected to be greater than 48 hours. [facility] Medical History Anemia of chronic disorder Atrial flutter with rapid ventricular response (07/2020) Bilateral carotid artery stenosis 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) Central retinal artery occlusion of left eye (10/09/20) Chronic kidney disease-mineral and bone disorder Chronic pelvic pain in male Chronic ulcer of back COVID-19 virus detected (10/02/21) Daily headache Dental caries Dialysis AV fistula malfunction Dialysis patient ESRD on hemodialysis Essential (primary) hypertension Expressive aphasia (04/05/20) Hearing loss Hematuria History of bacterial endocarditis History of blood clots History of non-ST elevation myocardial infarction (NSTEMI) (11/08/19) History of pulmonary embolus (PE) History of venous thromboembolism 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 due to renal insufficiency Hypotension of hemodialysis 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 FCI current use of 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 Mechanical complication of arteriovenous fistula surgically created Medication side effects Mitral valve annular calcification Morbidly obese Non compliance w medication regimen Non-healing non-surgical wound Nonrheumatic mitral valve stenosis with insufficiency Obstructive sleep apnea Pain of right lower extremity Paroxysmal atrial fibrillation (06/10/20) Paroxysmal atrial flutter 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) Pelvic mass Postoperative complete heart block (08/21/21) Sepsis Thrombosis of kidney dialysis arteriovenous graft Unspecified symptoms and signs involving cognitive functions and awareness (04/05/20) Home Medications BP monitor #1 ea 07/17/21 [Rx Last Taken Unknown] aspirin 81 mg tablet,delayed release (Adult Aspirin Regimen) 81 mg PO DAILY 10/29/21 [History Last Taken Unknown] midodrine 10 mg tablet 10 mg PO TID 10/29/21 [History Last Taken Unknown] sevelamer carbonate 800 mg tablet 800 mg PO TID 06/25/22 [History Last Taken Unknown] sucroferric oxyhydroxide 500 mg chewable tablet (Velphoro) 1,500 mg PO TIDCM 11/11/23 [History Last Taken Unknown] warfarin 3 mg tablet 3 mg PO DAILY 11/11/23 [History Last Taken Unknown] Allergy/AdvReac Type Severity Reaction Status Date / Time gabapentin Allergy Other Verified 10/08/23 21:56 Family History Other Adopted Surgical History History of angioplasty of peripheral vessel (08/28/21) History of cardioversion (12/02/18) history of cather replacement History of herniorrhaphy History of left heart catheterization (09/17/18) History of mitral valve replacement with bioprosthetic valve (08/21/21) History of repair of congenital cleft palate History of right and left heart catheterization (08/16/21) History of tooth extraction, class IV edentulism (09/11/21) Hx of mitral valve replacement Mechanical complication of dialysis catheter Status post creation of arteriovenous fistula Social History household members: none Smoking Status: Never smoker alcohol intake: never substance use type: marijuana what type of physical activity do you participate in: none ROS ROS Narrative Review of systems: General: Patient denies fevers or chills. HENT: Denies headache, denies stuffy nose, denies sore throat EYES: Denies changes in vision Resp: Denies cough or shortness of breath Cardiac: Denies chest pain or palpitations. GI: Patient admits to abdominal pain with bleeding from left lower quadrant ulcer but denies nausea, vomiting, diarrhea or constipation. : Denies changes in urination Extremity: Denies swelling Musculoskeletal: Feels somewhat generally weak and unwell Neuro: Denies any numbness/tingling Heme: Denies any bleeding or bruising Skin: Denies rashes Psychiatric: No complaints voiced regarding uncontrolled depression or anxiety. Endocrine: No polyuria, polydipsia or polyphagia. The rest of the 14 point ROS was negative except for positives in HPI. Vital Signs Vital Signs Vital Signs: 11/11/23 15:39 11/11/23 16:05 11/11/23 16:39 Temperature 98.6 F Temperature Source Oral Pulse Rate 126 H 126 H Respiratory Rate 18 22 H Blood Pressure 129/75 H 116/84 H Blood Pressure Mean 93 94 Blood Pressure Source Blood Pressure Position Blood Pressure Location Pulse Ox 83 94 100 Oxygen Delivery Method Room Air Nasal Cannula Room Air Oxygen Flow Rate (L/min) 3 11/11/23 16:43 11/11/23 16:56 11/11/23 18:23 Temperature 98.6 F 98.1 F Temperature Source Oral Oral Pulse Rate 117 H 115 H 108 H Respiratory Rate 18 14 14 Blood Pressure 116/84 H 101/64 90/56 L Blood Pressure Mean 94 76 67 Blood Pressure Source Blood Pressure Position Blood Pressure Location Pulse Ox 100 100 100 Oxygen Delivery Method Room Air Room Air Nasal Cannula Oxygen Flow Rate (L/min) 2 11/11/23 19:26 11/11/23 21:11 11/11/23 21:26 Temperature 98.1 F 98.2 F 98.1 F Temperature Source Oral Oral Oral Pulse Rate 102 H 105 H 115 H Respiratory Rate 16 11 L 15 Blood Pressure 102/62 115/95 H 102/54 L Blood Pressure Mean 75 101 70 Blood Pressure Source Monitor Monitor Blood Pressure Position Semi-Fowlers Semi-Fowlers Blood Pressure Location Right Forearm Right Forearm Pulse Ox 100 100 99 Oxygen Delivery Method Nasal Cannula Room Air Room Air Oxygen Flow Rate (L/min) 2 11/11/23 21:00 11/11/23 22:00 11/11/23 22:26 Temperature 98 F 98 F 98 F Temperature Source Temporal Oral Oral Pulse Rate 109 H 110 H 107 H Respiratory Rate 12 19 H 15 Blood Pressure 102/59 L 102/58 L 113/79 Blood Pressure Mean 73 72 90 Blood Pressure Source Monitor Blood Pressure Position Semi-Fowlers Blood Pressure Location Right Forearm Pulse Ox 98 100 100 Oxygen Delivery Method Room Air Room Air Room Air Oxygen Flow Rate (L/min) 11/11/23 23:06 11/11/23 23:49 11/12/23 00:04 Temperature 98.3 F 98.3 F 97.8 F Temperature Source Oral Oral Oral Pulse Rate 108 H 108 H 103 H Respiratory Rate 13 13 14 Blood Pressure 130/83 H 130/83 H 137/78 H Blood Pressure Mean 98 98 97 Blood Pressure Source Monitor Monitor Monitor Blood Pressure Position Semi-Fowlers Semi-Fowlers Semi-Fowlers Blood Pressure Location Right Forearm Right Forearm Right Forearm Pulse Ox 100 100 100 Oxygen Delivery Method Room Air Room Air Room Air Oxygen Flow Rate (L/min) Weight Weight: 258 lb 13.163 oz Body Mass Index (BMI) 37.1 Physical Exam Const alert, oriented x3, no apparent distress and average body habitus General Appearance: cooperative HEENT normocephalic, head/scalp atraumatic, hearing grossly normal bilaterally and moist oral mucous membranes HEENT Narrative: Patient is noted to have significant underbite with wide spaces between teeth. Eyes conjunctivae normal Eyes Narrative: Patient is blind in the Left eye. Neck no lymphadenopathy and supple Resp normal respiratory effort, no retractions, no use of accessory muscles and clear to auscultation bilaterally Cardio regular rate and regular rhythm Cardio Narrative: Tachycardia noted. GI normal to inspection, nondistended, normoactive bowel sounds GI Narrative: Patient is tender to palpation over the left lower quadrant with bleeding controlled by direct pressure with associated slight bruising. Palpation: tender Extremity normal to inspection and full ROM Skin Skin Narrative: Patient has a few ulcers on the lower abdomen with scant bleeding from the left lower quadrant ulcer and surrounding bruising. Neuro oriented x3, CN's II-XII intact bilaterally, moves all extremities and no focal motor deficits Sensorium / Orientation: awake, alert, oriented to person, oriented to place and oriented to time Speech: speech normal Motor Exam: strength 5/5 throughout Psych affect normal Results Medical Records Data Attestation: I reviewed the patient's medical records Lab / Micro Data Attestation: I reviewed the patient's lab results. 11/11/23 15:55 11/11/23 15:55 Labs: Laboratory Results - last 24 hr 11/11/23 15:55: WBC 6.2, RBC 3.50 L, Hgb 9.4 L, Hct 30.9 L, MCV 88.3, MCH 26.9 L, MCHC 30.4 L, RDW Std Deviation 64.0 H, RDW Coeff of Lance 19.9 H, Plt Count 199, MPV 10.7, Immature Gran % (Auto) 0.600, Neut % (Auto) 56.6, Lymph % (Auto) 22.0, [place] % (Auto) 18.1 H, Eos % (Auto) 2.4, Baso % (Auto) 0.3, Absolute Neuts (auto) 3.5, Absolute Lymphs (auto) 1.37, Nucleated RBC % 0, PT 20.8 H, INR 1.8, APTT 39.6 H, Sodium 139, Potassium 4.8, Chloride 99, Carbon Dioxide 28.0, Anion Gap 12, BUN 53 H, Creatinine 10.60 H*, Estim Creat Clear Calc 11.77, Est GFR (MDRD) Af Amer 7 L, Est GFR (MDRD) Non-Af 6 L, BUN/Creatinine Ratio 5.0 L, Glucose 106, Calcium 9.3, Total Bilirubin 0.40, AST 18, ALT 14 L, Alkaline Phosphatase 137 H, Total Protein 8.2, Albumin 3.0 L, Globulin 5.2 H, Albumin/Globulin Ratio 0.6 L, Blood Type B POSITIVE, Antibody Screen NEGATIVE 11/11/23 16:00: Crossmatch See Detail 11/11/23 16:30: Lactic Acid 1.7 Imaging Radiology Impression Abdomen/Pelvis CT 11/11/23 16:09 IMPRESSION: Bilateral renal cysts. No sign of bowel obstruction. Electronically Signed: Kendallkera Rock at 17:15 EST , Assessment & Plan Assessment/Plan (1) Abdominal wall cellulitis: (2) Acute hemorrhage: (3) Abdominal pain: QUALIFIERS: Abdominal location: generalized Qualified Code(s): R10.84 - Generalized abdominal pain (4) ESRD (end stage renal disease): (5) History of mitral valve replacement with bioprosthetic valve: (6) Paroxysmal atrial flutter: PLAN: Plan 1. Bleeding abdominal wall ulcer with surrounding cellulitis - Admit to PCU. Start IV Zosyn and IV vancomycin to cover for potential nosocomial pathogens. Give Tylenol as needed mild to moderate level 1-5 out of 10 pain or fever. Give Dilaudid IV as needed for severe level 6-10 out of 10 pain. And only, with this patient should be transferred to [facility] as soon as a bed is available. 2. Acute blood loss anemia due to #1 - Type and screen blood and transfuse for hemoglobin less than 7 g/dL. Hemoglobin was noted to be 9.4 g/dL present on admission. 3. Chronic abdominal wall ulcer with history of sepsis and frequent cellulitis followed by Dr. Cuba of [place] at [facility] with occasional bleeding and routine dressing changes at home complicating #1 & #2 - Noted. 4. ESRD on HD; (M-W-F) - Noted. For further recommendations regardingWe will consult printing manager on-call to see patient on rounds in the a.m. potential hemodialysis with help appreciated in advance. 5. Chronic atrial fibrillation/flutter; on Coumadin - INR subtherapeutic at 1.8 present on admission. This agent will be held till further notice. 6. History of mitral valve replacement with audible mechanical clicking audible at bedside; with patient on chronic Coumadin - Restart Coumadin as soon as it is safely possible to do so. Avoid bridging with heparin or Lovenox in this patient admitted with acute hemorrhage. 7. Obesity; with BMI of 37.1 this admission plus obstructive sleep apnea - Weight loss will be recommended. Check TSH. 8. CAD; s/p non-ST elevation [place] (2019) - Noted. 9. History of bacterial endocarditis - Noted. 10. History of VTE - Noted. 11. Blind in Left Eye; after central retinal artery occlusion (2020) Stable. 12. History of COVID-19 - Noted. 13. DVT prophylaxis - SCD's only for now with very recent active hemorrhage noted in #1. Total time: Approximately 55 minutes. Charges/Coding Visit Charges Inpatient E&M: 27008 Init Hosp L2 Documented by User: Kenneth Garcia 11/12/23 03:39 HPI - General General Date of Admission: 11/12/23 [facility] Medical History Anemia of chronic disorder Atrial flutter with rapid ventricular response (07/2020) Bilateral carotid artery stenosis 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) Central retinal artery occlusion of left eye (10/09/20) Chronic kidney disease-mineral and bone disorder Chronic pelvic pain in male Chronic ulcer of back COVID-19 virus detected (10/02/21) Daily headache Dental caries Dialysis AV fistula malfunction Dialysis patient ESRD on hemodialysis Essential (primary) hypertension Expressive aphasia (04/05/20) Hearing loss Hematuria History of bacterial endocarditis History of blood clots History of non-ST elevation myocardial infarction (NSTEMI) (11/08/19) History of pulmonary embolus (PE) History of venous thromboembolism 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 due to renal insufficiency Hypotension of hemodialysis 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 terminal carman current use of 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 Mechanical complication of arteriovenous fistula surgically created Medication side effects Mitral valve annular calcification Morbidly obese Non compliance w medication regimen Non-healing non-surgical wound Nonrheumatic mitral valve stenosis with insufficiency Obstructive sleep apnea Pain of right lower extremity Paroxysmal atrial fibrillation (06/10/20) Paroxysmal atrial flutter 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) Pelvic mass Postoperative complete heart block (08/21/21) Sepsis Thrombosis of kidney dialysis arteriovenous graft Unspecified symptoms and signs involving cognitive functions and awareness (07/08/20) Home Medications BP monitor #1 ea 10/19/21 [Rx Last Taken Unknown] aspirin 81 mg tablet,delayed release (Adult Aspirin Regimen) 81 mg PO DAILY 10/29/21 [History Last Taken Unknown] midodrine 10 mg tablet 10 mg PO TID 10/29/21 [History Last Taken Unknown] sevelamer carbonate 800 mg tablet 800 mg PO TID 06/25/22 [History Last Taken Unknown] sucroferric oxyhydroxide 500 mg chewable tablet (Velphoro) 1,500 mg PO TIDCM 11/11/23 [History Last Taken Unknown] warfarin 3 mg tablet 3 mg PO DAILY 11/11/23 [History Last Taken Unknown] Allergy/AdvReac Type Severity Reaction Status Date / Time gabapentin Allergy Other Verified 10/08/23 21:56 Family History Other Adopted Surgical History History of angioplasty of peripheral vessel (08/28/21) History of cardioversion (12/02/18) history of cather replacement History of herniorrhaphy History of left heart catheterization (09/17/18) History of mitral valve replacement with bioprosthetic valve (08/21/21) History of repair of congenital cleft palate History of right and left heart catheterization (08/16/21) History of tooth extraction, class IV edentulism (09/11/21) Hx of mitral valve replacement Mechanical complication of dialysis catheter Status post creation of arteriovenous fistula Social History household members: none Smoking Status: Never smoker alcohol intake: never substance use type: marijuana what type of physical activity do you participate in: none Results Lab / Micro Data 11/11/23 15:55 11/11/23 15:55 Assessment & Plan Assessment/Plan (1) Abdominal wall cellulitis: (2) Acute hemorrhage: (3) Abdominal pain: QUALIFIERS: Abdominal location: generalized Qualified Code(s): R10.84 - Generalized abdominal pain (4) ESRD (end stage renal disease): (5) History of mitral valve replacement with bioprosthetic valve: (6) Paroxysmal atrial flutter:
[2023-11-12] MEDS: Vancomycin HCl 2,000 MG in 0.9% Normal Saline (500mL Bag) 500 ML 250 MG IV (04:20)
[2023-11-12] MEDS: SEVELAMER CARBONATE 800 MG TABLET PO ×2 (04:21→14:56)
[2023-11-12] MEDS: Piperacil/Tazobactam 3.375 GM in 0.9% Normal Saline (50mL MB+) 50 ML IV ×2 (04:21→20:16)
[2023-11-12] MEDS: Midodrine HCl 5 MG Tablet 10 MG PO ×3 (04:21→20:15)
[2023-11-12] MEDS: HYDROmorphone 0.5 MG/0.5 ML SYRINGE IV ×3 (04:31→17:48)
--- NOTE | 2023-11-12 05:45 | PCM.RX.CS ---
Consult Antibiotic Management Pharmacy has been consulted to manage selected antibiotic: Vancomycin Type of Intervention Type of Consult: New start Labs Labs: Sodium 139 mmol/L (136-145) 11/11/23 15:55 Potassium 4.8 mmol/L (3.5-5.1) 11/11/23 15:55 Chloride 99 mmol/L (98-107) 11/11/23 15:55 Carbon Dioxide 28.0 mmol/L (21.0-32.0) 11/11/23 15:55 Anion Gap 12 (5-15) 11/11/23 15:55 BUN 53 mg/dL (7-18) H 11/11/23 15:55 Creatinine 10.60 mg/dL (0.70-1.30) H* 11/11/23 15:55 Est GFR (MDRD) Af Amer 7 mL/min (>60) L 11/11/23 15:55 Est GFR (MDRD) Non-Af 6 mL/min (>60) L 11/11/23 15:55 BUN/Creatinine Ratio 5.0 RATIO (10-20) L 11/11/23 15:55 Glucose 106 mg/dL (74-106) 11/11/23 15:55 Dosing Weight Weight used for dosin.4 kg Estimated Creatinine Clearance Estimated Creatinine Clearance: DIALYSIS Goal Trough Goal Trough: 15-20 mcg/mL Pharmacy Plan for Drug Dosing Pharmacy Plan for Drug Dosing: Pharmacy Service will continue to monitor and adjust dosing as required. 2GM LOADING DOSE GIVEN. 1GM DOSE ORDERED AFTER DIALYSIS. RANDOM LEVEL PRIOR TO FOLLOWING DIALYSIS ON 11/14 Follow-Up Labs Follow-Up Labs: Trough: Vancomycin Date/Time Labs Ordered Labs to be done on [date and time ordered]: 11/14 @ 0600
[2023-11-12 07:22] LABS: Absolute Neutrophil Count 3.9 X10^3/uL (2.0-7.7); Basophil# 0.02 X10^3/uL; Basophil% 0.3 % (0-1); Eosinophils% 1.7 % (0-5); Hematocrit 27.1 % (40-54); Hemoglobin 8.2 g/dL (13.0-16.5); Lymphocyte % 13.7 % (19-41); Mean Corp Hgb Conc 30.3 g/dL (32-36); Mean Corpuscular Hgb 26.6 pg (27.0-32.0); Mean Platelet Vol. 9.9 fl (6.2-12.0); Monocyte# 1.01 X10^3/uL; Monocyte% 17.3 % (0-10); NRBC Flagged by Analyzer 0 % (0-5); Neutrophil # 3.89 X10^3/uL (2.7-7.7); Neutrophil % 66.5 % (47-70); Platelet Count 154 K/mm3 (150-450); RBC Distribution Width CV 18.6 % (11.6-14.6); RBC Distribution Width SD 59.2 fl (35.1-43.9); Red Blood Count 3.08 M/mm3 (4.6-6.2); White Blood Count 5.9 K/mm3 (4.4-11.0)
[2023-11-12 07:56] LABS: Anion Gap 15 (5-15); BUN 57 mg/dL (7-18); BUN/Creat Ratio 5.1 RATIO (10-20); Calcium,Total 8.8 mg/dL (8.5-10.1); Chloride 100 mmol/L (98-107); EST Glomerular Filtration Rate 5 mL/min (>60); Est Glom Filt Rate - Afr Amer 7 mL/min (>60); Estimated Creatinine Clearance 11.01 ml/min; Glucose 90 mg/dL (74-106); Magnesium 2.4 mg/dL (1.6-2.6); Phosphorus 8.6 mg/dL (2.5-4.9); Sodium Level 138 mmol/L (136-145); Thyroid Stim Hormone (TSH) 4.92 uIU/mL (0.358-3.74)
--- NOTE | 2023-11-12 08:07 | NURSING ---
I spoke with Cyndi with [facility]'s transfer line she stated the pt is still on the wait list however they do not have a bed at this time.
--- NOTE | 2023-11-12 10:05 | WOUNDNOTE ---
wound photo: left lower abdomen
--- NOTE | 2023-11-12 10:06 | WOUNDNOTE ---
wound photo: left lower back
--- NOTE | 2023-11-12 10:07 | WOUNDNOTE ---
wound photo: mid lower/right lower back
--- NOTE | 2023-11-12 11:26 | CHAPLAIN ---
Type of Pastoral Visit _x__ Initial Visit ___ Follow-up Visit ___ On-call Visit ___ General Patient Visit ___ Spiritual Assessment ___ Family Conference ___ Bereavement ___ Rapid Response ___ Code Blue ___ Other (describe below) Pastoral Care Referral From _x__ Patient ___ Family ___ Nurse ___ Physician ___ Casino Change Attendant ___ Telephone Answerer ___ Other (describe below) Sacrament/Intervention _x__ Active listening ___ Anointing ___ Uatsdin ___ Bereavement ___ Communion ___ Layla exploration ___ ___ Life review _x__ Prayer ___ Reconciliation ___ Sacrament of Sick _x__ Supportive presence ___ Wedding _x__ Other (describe below) Pastoral Comments patient has been seen before in previous admissions; pt gives updates; 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
[2023-11-12] MEDS: oxyCODONE 5 MG Tablet PO ×2 (12:04→20:16)
--- NOTE | 2023-11-12 12:07 | PCM.CONS.R ---
Assessment & Plan Assessment/Plan (1) ESRD (end stage renal disease): (2) Abdominal wall cellulitis: (3) Anemia in chronic kidney disease: PLAN: Plan - Outpatient HD schedule is MWF at [facility]; Will plan for dialysis today on 2k bath (K+ 5.0) and attempt fluid removal as patient and bp tolerates. Outpatient edw is 110kg. Recently patient has been shortening his dialysis sessions therefore he has not been getting to dry weight. Last post-dialysis weight was 115.4 kg 11/10/2023. Will evaluate for dialysis again tomorrow. Recommend renal diet. - Patient has a history of hypotension and is on midodrine. Continue midodrine 3 times daily as ordered. - Patient has history of anemia of chronic disease. His hemoglobin at the kidney center on November 03 was 11.6. He last received Mircera 200mcg on September 26. Hemoglobin is 8.2, likely from blood loss from wound and will give Epogen with HD. Will continue to follow hemoglobin trends - abdominal wall cellulitis; had biopsy in past at [facility] which was negative for calciphylaxis. Currently on Vanco/Zosyn. Possibly to be transferred to [facility] when bed comes available. HPI Consult Data Date of Consult: 11/12/23 HPI Narrative HPI Narrative: REJI SPAIN, is a 43 M with past medical history significant for ESRD on hemodialysis at [facility] on a Friday schedule who was brought to the emergency room yesterday for evaluation after patient noted bleeding from his abdomen. Patient has history of chronic abdominal wounds and has been admitted most recently at [facility]. Patient was admitted for abdominal wall cellulitis, he is on antibiotics, he is waiting for bed at [facility]. Nephrology consulted as patient has history of ESRD, for dialysis management. Patient last dialyzed at the kidney center on Friday but shortened treatment. He denies any recent nausea, vomiting, diarrhea, or fevers. [facility] Medical History Anemia of chronic disorder Atrial flutter with rapid ventricular response (07/2020) Bilateral carotid artery stenosis 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) Central retinal artery occlusion of left eye (10/09/20) Chronic kidney disease-mineral and bone disorder Chronic pelvic pain in male Chronic ulcer of back COVID-19 virus detected (10/02/21) Daily headache Dental caries Dialysis AV fistula malfunction Dialysis patient ESRD on hemodialysis Essential (primary) hypertension Expressive aphasia (04/05/20) Hearing loss Hematuria History of bacterial endocarditis History of blood clots History of non-ST elevation myocardial infarction (NSTEMI) (11/08/19) History of pulmonary embolus (PE) History of venous thromboembolism 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 due to renal insufficiency Hypotension of hemodialysis 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 long-term current use of 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 Mechanical complication of arteriovenous fistula surgically created Medication side effects Mitral valve annular calcification Morbidly obese Non compliance w medication regimen Non-healing non-surgical wound Nonrheumatic mitral valve stenosis with insufficiency Obstructive sleep apnea Pain of right lower extremity Paroxysmal atrial fibrillation (06/10/20) Paroxysmal atrial flutter 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) Pelvic mass Postoperative complete heart block (08/21/21) Sepsis Thrombosis of kidney dialysis arteriovenous graft Unspecified symptoms and signs involving cognitive functions and awareness (04/05/20) Home Medications BP monitor #1 ea 07/17/21 [Rx Last Taken Unknown] aspirin 81 mg tablet,delayed release (Adult Aspirin Regimen) 81 mg PO DAILY 10/29/21 [History Last Taken Unknown] midodrine 10 mg tablet 10 mg PO TID 10/29/21 [History Last Taken Unknown] sevelamer carbonate 800 mg tablet 800 mg PO TID 06/25/22 [History Last Taken Unknown] sucroferric oxyhydroxide 500 mg chewable tablet (Velphoro) 1,500 mg PO TIDCM 11/11/23 [History Last Taken Unknown] warfarin 3 mg tablet 3 mg PO DAILY 11/11/23 [History Last Taken Unknown] Allergy/AdvReac Type Severity Reaction Status Date / Time gabapentin Allergy Other Verified 10/08/23 21:56 Family History Other Adopted Surgical History History of angioplasty of peripheral vessel (08/28/21) History of cardioversion (12/02/18) history of cather replacement History of herniorrhaphy History of left heart catheterization (09/17/18) History of mitral valve replacement with bioprosthetic valve (08/21/21) History of repair of congenital cleft palate History of right and left heart catheterization (08/16/21) History of tooth extraction, class IV edentulism (09/11/21) Hx of mitral valve replacement Mechanical complication of dialysis catheter Status post creation of arteriovenous fistula Social History household members: none Smoking Status: Never smoker alcohol intake: never substance use type: marijuana what type of physical activity do you participate in: none ROS ROS Narrative As in HPI and past medical history Physical Exam Narrative Alert orient x 3, no apparent distress S1, S2, RRR lung sounds clear anteriorly and posteriorly Abdomen soft, nontender No pitting edema bilateral lower legs thigh AVG +thrill and bruit Lab / Micro Data 11/12/23 07:07 11/12/23 07:07 Labs: Laboratory Results - last 24 hr 11/11/23 15:55: WBC 6.2, RBC 3.50 L, Hgb 9.4 L, Hct 30.9 L, MCV 88.3, MCH 26.9 L, MCHC 30.4 L, RDW Std Deviation 64.0 H, RDW Coeff of Lance 19.9 H, Plt Count 199, MPV 10.7, Immature Gran % (Auto) 0.600, Neut % (Auto) 56.6, Lymph % (Auto) 22.0, Franklin % (Auto) 18.1 H, Eos % (Auto) 2.4, Baso % (Auto) 0.3, Absolute Neuts (auto) 3.5, Absolute Lymphs (auto) 1.37, Nucleated RBC % 0, PT 20.8 H, INR 1.8, APTT 39.6 H, Sodium 139, Potassium 4.8, Chloride 99, Carbon Dioxide 28.0, Anion Gap 12, BUN 53 H, Creatinine 10.60 H*, Estim Creat Clear Calc 11.77, Est GFR (MDRD) Af Amer 7 L, Est GFR (MDRD) Non-Af 6 L, BUN/Creatinine Ratio 5.0 L, Glucose 106, Calcium 9.3, Total Bilirubin 0.40, AST 18, ALT 14 L, Alkaline Phosphatase 137 H, Total Protein 8.2, Albumin 3.0 L, Globulin 5.2 H, Albumin/Globulin Ratio 0.6 L, Blood Type B POSITIVE, Antibody Screen NEGATIVE 11/11/23 16:00: Crossmatch See Detail 11/11/23 16:30: Lactic Acid 1.7 11/12/23 07:07: WBC 5.9, RBC 3.08 L, Hgb 8.2 L, Hct 27.1 L, MCV 88.0, MCH 26.6 L, MCHC 30.3 L, RDW Std Deviation 59.2 H, RDW Coeff of Lance 18.6 H, Plt Count 154, MPV 9.9, Immature Gran % (Auto) 0.500, Neut % (Auto) 66.5, Lymph % (Auto) 13.7 L, Franklin % (Auto) 17.3 H, Eos % (Auto) 1.7, Baso % (Auto) 0.3, Absolute Neuts (auto) 3.9, Absolute Lymphs (auto) 0.80 L, Nucleated RBC % 0, Sodium 138, Potassium 5.0, Chloride 100, Carbon Dioxide 23.0, Anion Gap 15, BUN 57 H, Creatinine 11.20 H*, Estim Creat Clear Calc 11.01, Est GFR (MDRD) Af Amer 7 L, Est GFR (MDRD) Non-Af 5 L, BUN/Creatinine Ratio 5.1 L, Glucose 90, Calcium 8.8, Phosphorus 8.6 H, Magnesium 2.4, TSH 4.92 H Imaging Radiology Impression Abdomen/Pelvis CT 11/11/23 16:09 IMPRESSION: Bilateral renal cysts. No sign of bowel obstruction. Electronically Signed: Kendall Rock DO at 17:15 EST Reading Location ID and State: [facility] / [place] Tel [phone], Service support ,
[2023-11-12] MEDS: 0.9% Normal Saline 1,000 ML IV.SOLN. 1000 ML OPERA.SITE (12:45)
[2023-11-12] MEDS: Epoetin Alfa epbx 10,000 UNITS/ML 20000 UNIT IV (12:45)
[2023-11-12] MEDS: PureFlow B 2K Dialysis Soln 1 BAG 6 BAG PF (12:46)
[2023-11-12] MEDS: Vancomycin IV 1,000 MG/200 ML BAG 200 MG IV (17:28)
--- NOTE | 2023-11-12 17:58 | PCM.HOSP.N ---
Hospitalist Note Patient was seen and examined briefly today, wound care was changing his dressing on his abdominal wound, patient states he has had the abdominal wound for approximately a year but nobody seems to know what is causing the wound and why it is not healing. Patient sees an infectious disease doctor currently for treatment. Patient will remain on his narcotic pain medications and IV antibiotics for now, we are awaiting notification from an outside hospital regarding bed availability.
[2023-11-12] MEDS: traZODone 100 MG Tablet PO (21:07)
[2023-11-13 03:40] VITALS: BMI 36.3
[2023-11-13] MEDS: Midodrine HCl 5 MG Tablet 10 MG PO ×3 (05:33→19:44)
--- NOTE | 2023-11-13 07:28 | NURSING ---
I spoke with Trupti with [facility]'s transfer line and she stated that the pt is still on the wait list and that they do not have a bed at this time.
[2023-11-13 09:01] VITALS: BP 113/54; PULSE 97; RESP 16; TEMP 37; O2SAT 96
[2023-11-13] MEDS: Piperacil/Tazobactam 3.375 GM in 0.9% Normal Saline (50mL MB+) 50 ML IV ×2 (09:14→19:44)
[2023-11-13] MEDS: SEVELAMER CARBONATE 800 MG TABLET PO ×2 (09:15→16:59)
[2023-11-13] MEDS: Juven (unflavored) Packet 1 PACKET PO (09:15)
[2023-11-13] MEDS: HYDROmorphone 0.5 MG/0.5 ML SYRINGE IV ×3 (09:22→19:47)
[2023-11-13] MEDS: oxyCODONE 5 MG Tablet PO ×2 (10:26→17:34)
--- NOTE | 2023-11-13 11:26 | PN.RENAL_ITS ---
Subjective Subjective Sitting in chair. No overnight events. States feeling better today. Objective Data Objective Data Vital Signs: Vital Signs Temp Pulse Resp BP Pulse Ox O2 Del Method O2 Flow Rate 98.6 F 97 16 113/54 L 96 CPAP 3 11/13/23 09:01 11/13/23 09:01 11/13/23 09:01 11/13/23 09:01 11/13/23 09:01 11/13/23 09:01 11/12/23 15:17 FiO2 21 11/13/23 01:40 Oxygen Flow Rate (L/min) 3 Oxygen Delivery Method CPAP Weight: 115.2 kg Body Mass Index (BMI) 36.3 Intake & Output: Intake and Output for Last 24 Hours 11/11/23 11/12/23 11/13/23 23:59 23:59 23:59 Intake Total 501 / 501 1291 / 1531 530 / 530 Output Total 6000 / 6000 Balance 501 / 501 -4709 / -4469 530 / 530 Lab / Micro Data 11/12/23 07:07 11/12/23 07:07 Physical Exam Narrative Alert orient x 3, no apparent distress S1, S2, RRR lung sounds clear anteriorly and posteriorly Abdomen soft, nontender. Did not remove dressing from abdominal wound No pitting edema bilateral lower legs thigh AVG +thrill and bruit Assessment & Plan Assessment/Plan (1) ESRD (end stage renal disease): (2) Abdominal wall cellulitis: (3) Anemia in chronic kidney disease: PLAN: Plan - Outpatient HD schedule is MWF at [facility]; patient underwent hemodialysis yesterday and tolerated around 3 L fluid removal. No acute indication for [employer] today. Will plan for dialysis tomorrow on 2k bath and attempt fluid removal as patient and bp tolerates. Outpatient edw is 110kg. Recently patient has been shortening his dialysis sessions at [facility] therefore he has not been getting to dry weight. Last post-dialysis weight was 115.4 kg 11/10/2023. Recommend renal diet. - Patient has a history of hypotension and is on midodrine. Continue midodrine 3 times daily as ordered. - Patient has history of anemia of chronic disease. His hemoglobin at the [facility] on November 03 was 11.6. He last received Mircera 200mcg on September 26. Hemoglobin is 8.2, likely from blood loss from wound and received Epogen with HD yesterday. Will continue to follow hemoglobin trends - abdominal wall cellulitis; had biopsy in past at [facility] which was negative for calciphylaxis. Currently on Vanco/Zosyn. Possibly to be [facility] sferred to [place] when bed comes available.
[2023-11-13 11:50] LABS: M R Staph aureus DNA By PCR Negative (Negative); Staph aureus DNA By PCR POSITIVE (Negative)
[2023-11-13 11:51] LABS: Probe Check PASS; Specimen Processing Control PASS
--- NOTE | 2023-11-13 18:45 | PCM.PN.HOSP ---
Subjective Subjective Patient was seen and examined today, the wound care nurse stated that the patient did not want to be disturbed and she was not able to change his dressing today. I received word late today that the patient's blood culture was positive for gram-negative leonarda, patient remains on Zosyn and vancomycin, I had the wound care nurse obtain a PCR of his wound, it was positive for staph and negative for MRSA. We still have not received word from [facility] about transferring the patient for further care. Objective Data Objective Data Vital Signs: Vital Signs Temp Pulse Resp BP Pulse Ox O2 Del Method O2 Flow Rate 98.6 F 97 16 113/54 L 96 CPAP 3 11/13/23 09:01 11/13/23 09:01 11/13/23 09:01 11/13/23 09:01 11/13/23 09:01 11/13/23 09:01 11/12/23 15:17 FiO2 21 11/13/23 01:40 Oxygen Flow Rate (L/min) 3 Oxygen Delivery Method CPAP Weight: 115.2 kg Body Mass Index (BMI) 36.3 Intake & Output: Intake and Output for Last 24 Hours 11/11/23 11/12/23 11/13/23 23:59 23:59 23:59 Intake Total 501 / 501 1291 / 1531 1280 / 1280 Output Total 6000 / 6000 6000 / 6000 Balance 501 / 501 -4709 / -4469 -4720 / -4720 Lab / Micro Data 11/12/23 07:07 11/12/23 07:07 Labs: Laboratory Results - last 24 hr 11/13/23 09:15: S.aureus Protein A PCR POSITIVE H, MRSA (PCR) Negative Micro: Microbiology 11/11/23 17:00 Blood Culture (Wb) - Chest Blood Culture - Preliminary Physical Exam Const alert, oriented x3 and no apparent distress General Appearance: cooperative, well kempt and well developed Orientation / Consciousness: awake, oriented to person, oriented to place and oriented to time HEENT normocephalic, head/scalp atraumatic and moist oral mucous membranes Eyes PERRL, EOMs intact bilaterally and conjunctivae normal Neck supple, no JVD, thyroid normal and no carotid bruits General: trachea midline Resp normal respiratory effort, no retractions, no use of accessory muscles and clear to auscultation bilaterally Auscultation: Negative for rales, rhonchi or wheezes Cardio regular rate, regular rhythm, S1 normal heart sound, S2 normal heart sound, no murmurs, no rub and no gallops GI normal to inspection, nondistended, normoactive bowel sounds, soft to palpation, non-tender and non-distended Extremity no clubbing, cyanosis or edema Skin Skin Narrative: Patient has a large bandage covering a wound over his left lateral lower abdomen area Neuro oriented x3, CN's II-XII intact bilaterally, moves all extremities, no focal motor deficits and no sensory deficits noted Sensorium / Orientation: awake and alert Speech: speech normal Psych affect normal Assessment & Plan Assessment/Plan (1) Abdominal wall cellulitis: PLAN: Plan 1. Abdominal wall cellulitis from chronic abdominal wound-patient will remain on Zosyn and vancomycin for now, again the wound was positive PCR for staph but not positive for MRSA. We are currently awaiting word on transfer to [facility] for further care. #2 bacteremia secondary to gram-negative bacteria-again patient is on Zosyn which should cover most gram-negative organisms, patient does not look toxic or septic #3 end-stage renal disease on dialysis-patient's next dialysis day will be tomorrow, nephrology is participating in his care #4 obstructive sleep apnea-patient uses CPAP Total clinical time spent by myself addressing the patient's medical issues, reviewing all of his data, and collaborating with patient's care team: 35 minutes Charges/Coding Visit Charges Inpatient E&M: 21091 Subs Hosp L2
[2023-11-13] MEDS: traZODone 100 MG Tablet PO (19:44)
[2023-11-13 21:11] VITALS: BP 91/67; PULSE 109; RESP 18; TEMP 36.7; O2SAT 100
[2023-11-14] MEDS: oxyCODONE 5 MG Tablet PO ×2 (00:22→08:55)
[2023-11-14] MEDS: HYDROmorphone 0.5 MG/0.5 ML SYRINGE IV (01:21)
[2023-11-14 03:22] VITALS: BMI 36.6
[2023-11-14 04:00] VITALS: BP 95/65; PULSE 99; RESP 18; TEMP 36.9; O2SAT 100
[2023-11-14] MEDS: Midodrine HCl 5 MG Tablet 10 MG PO ×2 (05:45→13:49)
[2023-11-14 06:37] LABS: Absolute Lymphocyte Count 0.82 X10^3/uL (0.83-4.51); Basophil# 0.01 X10^3/uL; Basophil% 0.2 % (0-1); Eosinophil# 0.13 X10^3/uL; Eosinophils% 2.7 % (0-5); Hematocrit 24.4 % (40-54); Hemoglobin 7.6 g/dL (13.0-16.5); Lymphocyte # 0.82 X10^3/ul (0.83-4.51); Lymphocyte % 16.8 % (19-41); Mean Corp Hgb Conc 31.1 g/dL (32-36); Mean Corpuscular Hgb 28.4 pg (27.0-32.0); Mean Platelet Vol. 10.3 fl (6.2-12.0); Monocyte# 0.85 X10^3/uL; Monocyte% 17.5 % (0-10); NRBC Flagged by Analyzer 0 % (0-5); Neutrophil # 3.04 X10^3/uL (2.7-7.7); Neutrophil % 62.4 % (47-70); Platelet Count 172 K/mm3 (150-450); RBC Distribution Width CV 18.8 % (11.6-14.6); RBC Distribution Width SD 62.1 fl (35.1-43.9); Red Blood Count 2.68 M/mm3 (4.6-6.2); White Blood Count 4.9 K/mm3 (4.4-11.0)
[2023-11-14 07:07] LABS: Vancomycin, Random Level 23.1 ug/mL (0.0-15.0)
--- NOTE | 2023-11-14 07:56 | PCM.RX.CS ---
Consult Antibiotic Management Pharmacy has been consulted to manage selected antibiotic: Vancomycin Type of Intervention Type of Consult: Follow-up Suspected Infection Suspected Infection: Skin/Soft tissue Prior Doses of Antibiotics Prior Doses of Antibiotics Received/Current Regimen: Last dose 1000mg iv x 1 post dialysis on 11.12.23. Labs Labs: Sodium 138 mmol/L (136-145) 11/12/23 07:07 Potassium 5.0 mmol/L (3.5-5.1) 11/12/23 07:07 Chloride 100 mmol/L (98-107) 11/12/23 07:07 Carbon Dioxide 23.0 mmol/L (21.0-32.0) 11/12/23 07:07 Anion Gap 15 (5-15) 11/12/23 07:07 BUN 57 mg/dL (7-18) H 11/12/23 07:07 Creatinine 11.20 mg/dL (0.70-1.30) H* 11/12/23 07:07 Est GFR (MDRD) Af Amer 7 mL/min (>60) L 11/12/23 07:07 Est GFR (MDRD) Non-Af 5 mL/min (>60) L 11/12/23 07:07 BUN/Creatinine Ratio 5.1 RATIO (10-20) L 11/12/23 07:07 Glucose 90 mg/dL (74-106) 11/12/23 07:07 Random Vancomycin 23.1 ug/mL (0.0-15.0) H 11/14/23 06:15 Microbiology Microbiology: Microbiology 11/11/23 17:00 Blood Culture (Wb) - Chest Blood Culture - Preliminary Dosing Weight Weight used for dosin kg Estimated Creatinine Clearance Estimated Creatinine Clearance: dialysis Goal Trough Goal Trough: 15-20 mcg/mL Pharmacy Plan for Drug Dosing Pharmacy Plan for Drug Dosing: Random level today (~37hrs post dose) was 23.1. Will hold further dosing and get another random level on 11.17.23 in AM before dialysis. Pharmacy Service will continue to monitor and adjust dosing as required. Follow-Up Labs Follow-Up Labs: Trough: Other (vanco random 11.17.23 0600)
[2023-11-14 08:52] VITALS: BP 109/64; PULSE 84; RESP 18; TEMP 36.6; O2SAT 94
[2023-11-14] MEDS: SEVELAMER CARBONATE 800 MG TABLET PO ×2 (08:54→12:50)
[2023-11-14] MEDS: Piperacil/Tazobactam 3.375 GM in 0.9% Normal Saline (50mL MB+) 50 ML IV (08:55)
--- NOTE | 2023-11-14 12:21 | DCINST_ITS ---
Discharge Instructions Diet Discharge Diet: Renal Diet Activity Discharge Activity: Return to Normal Activity Weight Bearing Status: Full weight bearing Follow Up Care Test Results: Test results from this visit will be discussed in further detail at your follow- up appointment, if applicable. Discharge Plan Admission Admit Date/Time: 11/12/23 01:01 Primary Reason for Your Visit: cellulitis of abdominal wall Attending Provider: Shahram Colvin Primary Care Provider: Barb Carrillo Consulting Providers: Tameka Melendez; Wild Stevens Discharge Orders/Prescriptions Prescriptions: New oxycodone 5 mg Tablet 5 - 10 mg PO Q6H PRN PRN (Reason: Pain Score 6-10) 7 Days Qty: 42 0RF cephalexin 500 mg capsule 500 mg PO DAILY Qty: 7 0RF Rx Instructions: On dialysis days, take after dialysis is completed, start 11/14/2023 Continued aspirin [Adult Aspirin Regimen] 81 mg tablet,delayed release (DR/EC) 81 mg PO DAILY midodrine 10 mg tablet 10 mg PO TID sevelamer carbonate 800 mg tablet 800 mg PO TID Patient Comments: TAKE 3 TABLETS BY MOUTH THREE TIMES DAILY WITH MEALS Velphoro 500 mg tablet,chewable 1,500 mg PO TIDCM Patient Comments: CRUSH OR CHEW AND SWALLOW 3 TABLETS 3 TIMES A DAY WITH MEALS warfarin 3 mg tablet 3 mg PO DAILY Patient Comments: Take 1 tablet by mouth daily as directed. trazodone 100 mg tablet 100 mg PO .hs Patient Comments: Take 1 tablet by mouth daily at bedtime. (DME) BP monitor large cuff See Rx Instructions .Route .MEDSUPPLY Qty: 1 0RF Rx Instructions: As directed Referrals / Follow Up: Barb Carrillo, ADMINISTRATIVE LIBRARY ASSISTANT-C [Primary Care Provider] - Disposition Disposition (needs filled in before D/C Order can be placed): Home, Self Care
--- NOTE | 2023-11-14 12:40 | PCM.DC.SUM ---
Providers Date of Admission: 11/12/23 Date of Discharge: 11/14/23 Primary Care Physician: Barb Carrillo, BRANCH OFFICER-Adeel Consultations 11/12/23 01:18 Consult: Nephrology Routine Consulting Provider: Tameka Melendez Reason for Consult: ESRD on HD EMERGENT Consult: No MD Notified: Yes Date Notified: 11/12/23 Time Notified: 04:31 Method of Notification: Answering Service 11/12/23 08:39 Consult: Onc/Wound/carton filling machine operator Routine Comment: Reason for Consult:: wounds abdomen, back Reason For Visit: BLEEDING ABDOMINAL WOUND, ESRD ON HD Diagnosis Discharge Diagnosis (1) Abdominal wall cellulitis: Status: Acute Code(s): L03.311 - Cellulitis of abdominal wall Plan 1. Abdominal wall cellulitis from chronic abdominal wound-patient will remain on Zosyn and vancomycin for now, again the wound was positive PCR for staph but not positive for MRSA. We are currently awaiting word on transfer to [facility] for further care. #2 bacteremia secondary to gram-negative bacteria-again patient is on Zosyn which should cover most gram-negative organisms, patient does not look toxic or septic #3 end-stage renal disease on dialysis-patient's next dialysis day will be tomorrow, nephrology is participating in his care #4 obstructive sleep apnea-patient uses CPAP #5 chronic pain #6 acute blood loss anemia secondary to chronic abdominal wound Total clinical time spent by myself addressing the patient's medical issues, reviewing all of his data, and collaborating with patient's care team: 35 minutes Medications at Discharge Home Medications BP monitor #1 ea 07/17/21 aspirin 81 mg tablet,delayed release (Adult Aspirin Regimen) 81 mg PO DAILY 10/29/21 midodrine 10 mg tablet 10 mg PO TID 10/29/21 sevelamer carbonate 800 mg tablet 800 mg PO TID 06/25/22 sucroferric oxyhydroxide 500 mg chewable tablet (Velphoro) 1,500 mg PO TIDCM 11/11/23 warfarin 3 mg tablet 3 mg PO DAILY 11/11/23 trazodone 100 mg tablet 100 mg PO .hs sleep 11/12/23 cephalexin 500 mg capsule 500 mg PO DAILY #7 caps 11/14/23 oxycodone 5 mg tablet 5 - 10 mg (1 - 2 x 5 mg) PO Q6H PRN PRN Pain Score 6-10 7 days #42 tabs 11/14/23 Hospital Course Operations None Procedures None, Blood transfusion and Dialysis Summary of Care Provided Minutes Spent on Discharge: 32 Hospital Course: This 43-year-old black male was seen in the emergency room at [facility] with complaints of acute bleeding from a chronic abdominal wound on the left side of his abdomen. He was brought in by EMS and EMS stated there was a lot of blood in his home. Patient follows with an infectious disease physician at [facility]. Patient also complained of pain in the abdominal wound area and stated he had been taking ibuprofen for the discomfort even though he takes Coumadin on a chronic basis at home for paroxysmal A-fib. Labs obtained revealed a hemoglobin of 9.4, white blood cell count was unremarkable, chemistry profile showed a creatinine of 10.6 and a BUN of 53, INR was subtherapeutic at 1.8. CT of the abdomen pelvis showed bilateral renal cyst but no sign of bowel obstruction. Patient requested transfer to [facility] for further care, they accepted the patient but unfortunately there was not an available hospital bed and so he had to be admitted to PCU. Due to his end-stage renal disease and being on chronic dialysis, he was seen by nephrology, he also was given 3 units of packed red blood cells in the emergency room due to concerns of low blood pressure and possible blood loss. Patient's blood culture returned positive for a gram positive leonarda after initially being reported as a gram-negative leonarda. Wound care saw the patient and felt that his abdominal wound was not infected. On 11/14/2023, patient was seen and examined: alert, oriented x3 and no apparent distress General Appearance: cooperative, well kempt and well developed Orientation / Consciousness: awake, oriented to person, oriented to place and oriented to time HEENT normocephalic, head/scalp atraumatic and moist oral mucous membranes Eyes PERRL, EOMs intact bilaterally and conjunctivae normal Neck supple, no JVD, thyroid normal and no carotid bruits General: trachea midline Resp normal respiratory effort, no retractions, no use of accessory muscles and clear to auscultation bilaterally Auscultation: Negative for rales, rhonchi or wheezes Cardio regular rate, regular rhythm, S1 normal heart sound, S2 normal heart sound, no murmurs, no rub and no gallops GI normal to inspection, nondistended, normoactive bowel sounds, soft to palpation, non-tender and non-distended Extremity no clubbing, cyanosis or edema Skin Skin Narrative: Patient has a large bandage covering a wound over his left lateral lower abdomen area Neuro oriented x3, CN's II-XII intact bilaterally, moves all extremities, no focal motor deficits and no sensory deficits noted Sensorium / Orientation: awake and alert Speech: speech normal Psych affect normal Patient was felt to be stable for discharge home on 11/14/2023, I contacted his pain management doctor in [place]-Dr. Hagan-and he approved that I write a prescription for narcotics for the patient until he could be seen in pain management. Weight / BMI Weight Weight: 116.1 kg Body Mass Index (BMI) 36.6 ABG / Lab / Microbiology Data 11/14/23 06:15 11/12/23 07:07 Laboratory: Laboratory Results - last 24 hr 11/14/23 06:15: WBC 4.9, RBC 2.68 L, Hgb 7.6 L, Hct 24.4 L, MCV 91.0, MCH 28.4, MCHC 31.1 L, RDW Std Deviation 62.1 H, RDW Coeff of Lance 18.8 H, Plt Count 172, MPV 10.3, Immature Gran % (Auto) 0.400, Neut % (Auto) 62.4, Lymph % (Auto) 16.8 L, Wilkin % (Auto) 17.5 H, Eos % (Auto) 2.7, Baso % (Auto) 0.2, Absolute Neuts (auto) 3.0, Absolute Lymphs (auto) 0.82 L, Nucleated RBC % 0, Random Vancomycin 23.1 H Microbiology: Microbiology 11/11/23 20:35 Blood Culture (Wb) - Chest Blood Culture - Preliminary No growth in 48 hours. 11/11/23 17:00 Blood Culture (Wb) - Chest Blood Culture - Preliminary D/C Instructions Discharge Diet: Renal Diet Weight Bearing Status: Full weight bearing Meaningful Use Info Meaningful Use Diagnoses (Choose all that apply): None applicable Discharge Plan Admission Admit Date/Time: 11/12/23 01:01 Primary Reason for Your Visit: cellulitis of abdominal wall Attending Provider: Shahram Colvin Primary Care Provider: Barb Carrillo Consulting Providers: Tameka Melendez; Wild Stevens Discharge Orders/Prescriptions Prescriptions: New oxycodone 5 mg Tablet 5 - 10 mg PO Q6H PRN PRN (Reason: Pain Score 6-10) 7 Days Qty: 42 0RF cephalexin 500 mg capsule 500 mg PO DAILY Qty: 7 0RF Rx Instructions: On dialysis days, take after dialysis is completed, start 11/14/2023 Continued aspirin [Adult Aspirin Regimen] 81 mg tablet,delayed release (DR/EC) 81 mg PO DAILY midodrine 10 mg tablet 10 mg PO TID sevelamer carbonate 800 mg tablet 800 mg PO TID Patient Comments: TAKE 3 TABLETS BY MOUTH THREE TIMES DAILY WITH MEALS Velphoro 500 mg tablet,chewable 1,500 mg PO TIDCM Patient Comments: CRUSH OR CHEW AND SWALLOW 3 TABLETS 3 TIMES A DAY WITH MEALS warfarin 3 mg tablet 3 mg PO DAILY Patient Comments: Take 1 tablet by mouth daily as directed. trazodone 100 mg tablet 100 mg PO .hs Patient Comments: Take 1 tablet by mouth daily at bedtime. (DME) BP monitor large cuff See Rx Instructions .Route .MEDSUPPLY Qty: 1 0RF Rx Instructions: As directed Referrals / Follow Up: Barb Carrillo, BRANCH OFFICER-C [Primary Care Provider] - 11/24/23 2:00 pm Disposition Disposition (needs filled in before D/C Order can be placed): Home, Self Care Charges/Coding Visit Charges Inpatient E&M: 88312 Disch Hosp >30min
[2023-11-14] MEDS: Acetaminophen 325 MG Tablet 650 MG PO (12:51)
--- NOTE | 2023-11-14 12:52 | CASEMGMT ---
Transfer to [facility] cancelled and patient discharging home. RN CM in to discuss needs at discharge. Patient states can help with dressing changes. Patient states he would like cane at discharge. Patient denied further needs or help at discharge. Patient knows to schedule follow-up appts. Script received for cane and provided to patient in discharge packet and instructed to take to pharmacy of choice to fill. Patient had no further questions or concerns.
--- NOTE | 2023-11-14 13:29 | NUR.TO.PHY ---
This RN spoke with this patient regarding Hemodialysis scheduled for today. Pt stated he was going to discharge home in 1 hour and would not be doing dialysis in the hospital . This RN encouraged pt to contact his chronic center to see if he could receive dialysis later today or r/s dialysis on 11/15/23. Pt confirmed that he does not wish to receive dialysis treatment prior to discharge today. Licensed Nursing Assistant notified. Najma Estrella notified that pt did not receive scheduled treatment today.
[2023-11-14 13:46] VITALS: BP 80/60; PULSE 90; RESP 18; TEMP 36.6; O2SAT 100
--- NOTE | 2023-11-14 15:13 | PHA.DC_ITS ---
Pharmacy [facility] has performed discharge medication reconciliation and counseling for this patient. This [facility] spoke to Dr. Colvin regarding warfarin. Has not had a dose since being admitted, last INR 1.8 on 11/11, had bleeding on admission. Okay to resume home dose and follow with whomever normally manages INR. 1. CEPHALEXIN 500MG PO DAILY (AFTER HD ON HD DAYS) 2. OXYCODONE 5-10MG PO Q6H PRN PAIN 6-10 The patient's discharge medication list was reviewed for discrepancies and discrepancies were resolved. The patient was counseled on the following discharge medications and changes in medications for homegoing were reviewed. The Reason for Use, instructions for use, and potential side effects were reviewed for all new medications. The patient's questions regarding all of their medications were answered. The patient was able to verbally demonstrate an understanding of their discharge medications. Patient counseled by pharmacy technician instructor, Amando. Medications at Discharge Home Medications BP monitor #1 ea 07/17/21 aspirin 81 mg tablet,delayed release (Adult Aspirin Regimen) 81 mg PO DAILY 10/29/21 midodrine 10 mg tablet 10 mg PO TID 10/29/21 sevelamer carbonate 800 mg tablet 800 mg PO TID 06/25/22 sucroferric oxyhydroxide 500 mg chewable tablet (Velphoro) 1,500 mg PO TIDCM 11/11/23 warfarin 3 mg tablet 3 mg PO DAILY 11/11/23 trazodone 100 mg tablet 100 mg PO .hs sleep 11/12/23 cephalexin 500 mg capsule 500 mg PO DAILY #7 caps 11/14/23 oxycodone 5 mg tablet 5 - 10 mg (1 - 2 x 5 mg) PO Q6H PRN PRN Pain Score 6-10 7 days #42 tabs 11/14/23
== END 2023-11-14 15:50 | disposition home or self-care (01) | DRG 602 ==
LOC: ED 11-12 00:42 → PCU 11-12 03:03
PROVIDERS: Admitting Provider Internal Medicine; Emergency Provider Student in an Organized Health Care Education/Training Program; PCP Nurse Practitioner Family; Visit Provider Internal Medicine
DX: L03.311 Cellulitis of abdominal wall (principal); N18.6 End stage renal disease; R78.81 Bacteremia; I12.0 Hypertensive chronic kidney disease with stage 5 chronic kidney disease or end stage renal disease; I48.20 Chronic atrial fibrillation, unspecified; D62 Acute posthemorrhagic anemia; I48.92 Unspecified atrial flutter; D63.1 Anemia in chronic kidney disease; Z99.2 Dependence on renal dialysis; I48.0 Paroxysmal atrial fibrillation; L98.499 Non-pressure chronic ulcer of skin of other sites with unspecified severity; I25.10 Atherosclerotic heart disease of native coronary artery without angina pectoris; F12.90 Cannabis use, unspecified, uncomplicated; I25.2 Old myocardial infarction; G47.33 Obstructive sleep apnea (adult) (pediatric); Z68.37 Body mass index [BMI] 37.0-37.9, adult; B95.8 Unspecified staphylococcus as the cause of diseases classified elsewhere; Z79.82 Long term (current) use of aspirin; Z79.01 Long term (current) use of 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s; Z86.16 Personal history of COVID-19; Z86.711 Personal history of pulmonary embolism; E66.9 Obesity, unspecified
CPT/HCPCS: 36415; 74176; 80048; 80053; 80202; 83605; 83735; 84100; 84443; 85025; 85610; 85730; 86850; 86900; 86901; 86920; 87040; 87640; 90937; 93005; 94660; 94668; 99252; 99285; J7030; J7040; P9016; A4216; G0257; G0463; J2405; Q5106

== ENCOUNTER 2023-12-25 22:19 | Emergency (ER) | payer MEDICARE, SELFPAY ==
[2023-12-25 22:20] VITALS: BP 130/72; PULSE 63; RESP 22; TEMP 36.3; O2SAT 94; BMI 36.1
--- NOTE | 2023-12-25 22:27 | CT_ITS ---
INDICATION: Expanding abdominal wall hematoma on Coumadin EXAMINATION: CT ABDOMEN AND PELVIS WITH CONTRAST - CT Abdomen And Pelvis W/ Contrast Injection TECHNIQUE: Helically acquired images were obtained of the abdomen and pelvis following IV contrast. A radiation dose optimization technique was used for this scan. IV Contrast dosage and agent: 100 mL [id number] Oral contrast: None. COMPARISON: November 01, 2017, November 11, 2023. FINDINGS: LOWER CHEST: Sternotomy changes. Lung bases are clear. No cardiomegaly or pericardial effusion. Course calcified mitral annulus LIVER: Homogeneous. No focal mass. GALLBLADDER AND BILIARY TREE: No calcified gallstones. No gallbladder distension or wall edema. No intra- or extrahepatic biliary ductal dilation. PANCREAS: No focal cystic or solid mass. SPLEEN: Normal size without focal cystic or solid mass. ADRENAL GLANDS: No nodules. KIDNEYS AND URETERS: Multiple bilateral renal cysts, no specific imaging follow-up required. Renal vascular calcifications in likely nonobstructing stones. Normal renal size and position. No hydronephrosis. PERITONEUM: No ascites or free air. No other fluid collection. BOWEL: No acute gastric finding. No small bowel distention or focal wall thickening. Normal appendix. No acute colonic finding. . LYMPH NODES: No enlarged mesenteric or retroperitoneal lymph nodes. VESSELS: Aorta is non-dilated. URINARY BLADDER: Unremarkable. ABDOMINAL WALL: Prominent Vessels and mild skin thickening along left anterior abdomen without organized hematoma. No intramuscular hematoma. No discrete abdominal or pelvic wall hernia. BONES: Chondroid-like osseous proliferation extending inferiorly from the right pubis, unchanged from November 11, 1999 424. Decreased from November 01, 2017. CT/Abdomen/Pelvis W IV Cont ONLY IMPRESSION: No evidence of abdominal wall hematoma. Mild skin thickening and nonspecific prominent vessels along left anterior abdomen. Correlate for clinical evidence of cellulitis. 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
--- NOTE | 2023-12-25 22:32 | EX.ED.DYSGE1 ---
HPI <Dr. Dimitri Swan MD - Last Filed: 12/30/23 06:58> History of Present Illness Chief Complaint: Wound Detail of Chief Complaint: Bleeding from wound Informant: patient and EMS Onset/Context/Timing Onset: Today Context: Sudden Onset Timing: Continuous Quality: Bleeding from left abdominal wound. The culprit appears to be the superior Location: Left abdominal wall Current Severity: Moderate Maximum Severity: Moderate Worsened by: Patient is on Coumadin for paroxysmal atrial fibrillation Relieved by: Nothing Associated Symptoms Associated Symptoms: Anxiety Narrative Narrative: Patient is a 43-year-old male with multiple medical problems which include end-stage renal disease on hemodialysis Friday, Friday and Friday. Chronic anemia, non-ST elevation VT, paroxysmal atrial fibrillation, history of mitral valve replacement with bioprosthetic valve July 2021 secondary hyperparathyroidism due to end-stage renal disease on hemodialysis who presents because of bleeding from wound. Patient has significant of blood that saturated multiple pads including 2 trauma pads. There is a fluctuant area mid left abdominal wall between his 2 wounds. Pushing on this area results in significant of blood coming from a small hole that is noted inferior aspect of the most superior wound. There is no warmth or induration noted. Patient denies fever or chills. Patient denies headache. 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 Patient denies rhinorrhea, congestion or postnasal drainage. Patient denies chest pain or shortness of breath. Prior similar symptoms: Yes (October 2023 admitted for 2 days) Recent Illness/Hospitalization: Yes [facility] <Dr. 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) Central retinal artery occlusion of left eye (10/09/20) Chronic kidney disease-mineral and bone disorder Chronic pelvic pain in male Chronic ulcer of back COVID-19 virus detected (10/02/21) Daily headache Dental caries Dialysis AV fistula malfunction Dialysis patient ESRD on hemodialysis Essential (primary) hypertension Expressive aphasia (04/05/20) Hearing loss Hematuria History of bacterial endocarditis History of blood clots History of non-ST elevation myocardial infarction (NSTEMI) (11/08/19) History of pulmonary embolus (PE) History of venous thromboembolism 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 due to renal insufficiency Hypotension of hemodialysis 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 Mechanical complication of arteriovenous fistula surgically created Medication side effects Mitral valve annular calcification Morbidly obese Non compliance w medication regimen Non-healing non-surgical wound Nonrheumatic mitral valve stenosis with insufficiency Obstructive sleep apnea Pain of right lower extremity Paroxysmal atrial fibrillation (06/10/20) Paroxysmal atrial flutter 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) Pelvic mass Postoperative complete heart block (08/21/21) Sepsis Thrombosis of kidney dialysis arteriovenous graft Unspecified symptoms and signs involving cognitive functions and awareness (04/05/20) Home Medications BP monitor #1 ea 07/17/21 [Rx Last Taken Unknown] aspirin 81 mg tablet,delayed release (Adult Aspirin Regimen) 81 mg PO DAILY 10/29/21 [History Last Taken Unknown] midodrine 10 mg tablet 10 mg PO TID 10/29/21 [History Last Taken Unknown] sevelamer carbonate 800 mg tablet 800 mg PO TID 06/25/22 [History Last Taken Unknown] sucroferric oxyhydroxide 500 mg chewable tablet (Velphoro) 1,500 mg PO TIDCM 11/11/23 [History Last Taken Unknown] warfarin 3 mg tablet 3 mg PO DAILY 11/11/23 [History Last Taken Unknown] trazodone 100 mg tablet 100 mg PO .hs sleep 11/12/23 [History Last Taken 11/12/23] cephalexin 500 mg capsule 500 mg PO DAILY #7 caps 11/14/23 [Rx Last Taken Unknown] oxycodone 5 mg tablet 5 - 10 mg (1 - 2 x 5 mg) PO Q6H PRN PRN Pain Score 6-10 7 days #42 tabs 11/14/23 [Rx Last Taken Unknown] Allergy/AdvReac Type Severity Reaction Status Date / Time gabapentin Allergy Other Verified 12/25/23 22:20 Family History Other Adopted Surgical History History of angioplasty of peripheral vessel (08/28/21) History of cardioversion (12/02/18) history of cather replacement History of herniorrhaphy History of left heart catheterization (09/17/18) History of mitral valve replacement with bioprosthetic valve (08/21/21) History of repair of congenital cleft palate History of right and left heart catheterization (08/16/21) History of tooth extraction, class IV edentulism (09/11/21) Hx of mitral valve replacement Mechanical complication of dialysis catheter Status post creation of arteriovenous fistula Social History household members: none Smoking Status: Never smoker alcohol intake: never substance use type: marijuana what type of physical activity do you participate in: none ROS <Dr. Dimitri Swan MD - Last Filed: 12/30/23 06:58> ROS ED Constitutional Constitutional ED: Denies chills, fever(s), subjective, sweats or weight loss Eyes Eyes: Reports other Details: Left eye blindness ; Denies blurry vision, change in vision or diplopia ENT ENT ED: Denies ear pain, rhinorrhea or sore throat Cardiovascular Cardiovascular: Denies chest pain, orthopnea, palpitations or paroxysmal nocturnal dyspnea Respiratory/Chest Respiratory/Chest: Denies cough, dyspnea, dyspnea on exertion, orthopnea or paroxysmal nocturnal dyspnea Gastrointestinal Gastrointestinal: Reports abdominal pain; Denies constipation, diarrhea, nausea or vomiting Genitourinary Genitourinary ED: Reports other Details: On hemodialysis Musculoskeletal Musculoskeletal: Denies arthralgias, back pain or myalgias Integumentary Reports other Details: Abdominal wall wound healing by secondary intention. Bleeding is previously noted Neurologic Neurologic: Denies headache(s) Psychiatric Psychiatric: Reports anxiety Hematologic/Lymphatic Hematologic/Lymphatic: Reports easy bleeding and easy bruising EXAM <Dr. Dimitri Swan MD - Last Filed: 12/30/23 06:58> Physical Exam Const Vital Signs: 12/25/23 22:20 12/26/23 00:19 12/26/23 01:14 Temperature 97.3 F L 97.3 F L Temperature Source Temporal Pulse Rate 63 111 H 78 Respiratory Rate 22 H 19 H 15 Blood Pressure 130/72 H 107/63 118/80 Blood Pressure Mean 91 77 92 Pulse Ox 94 100 100 Oxygen Delivery Method Nasal Cannula Room Air Oxygen Flow Rate (L/min) 4 12/26/23 01:15 12/26/23 02:15 Temperature 97.3 F L Temperature Source Temporal Pulse Rate 108 H 112 H Respiratory Rate 14 19 H Blood Pressure 118/80 Blood Pressure Mean 92 Pulse Ox 97 Oxygen Delivery Method Nasal Cannula Room Air Oxygen Flow Rate (L/min) Positive well nourished, well developed and obese Constitutional Narrative: Patient became anxious because he saw the bleeding. General Appearance ED: well developed and NAD Nutritional Appearance: obese HEENT Reports moist mucous membranes HEENT Narrative: Head is atraumatic normocephalic. Ears normal. Nares patent. Posterior pharynx is normal. Eyes PERRL and EOMs intact bilaterally General Eye ED: Yes pale conjunctiva; Negative for scleral icterus Neck no lymphadenopathy, supple and no JVD Neck Narrative: Trachea is midline. Resp normal respiratory effort and clear to auscultation bilaterally Cardio regular rate, S1 normal heart sound, S2 normal heart sound and no murmurs Rhythm: abnormal rhythm irregularly irregular GI normal to inspection, nondistended, normoactive bowel sounds, non-tender, non-distended and no masses; Negative for hepatosplenomegaly GI Narrative: 2 wounds noted left side of the abdomen. The inferior most aspect of the superior wound has a small bleeding site. Palpation of a fluctuant area inferior to this results and stream of blood flowing from the area. This filled again. Patient may have a vascular injury i.e. venous versus arterial. This also may be exacerbated by the fact that he is on Coumadin. Inspection: Negative for abdominal distention Auscultation: hypoactive bowel sounds Palpation: soft and tender LUQ; Negative for guarding, splenomegaly, mass or rebound tenderness present Back/Spine no CVA tenderness Extremity General Extremety ED: Yes edema General Extremity: edema Neuro oriented x3 and CN's II-XII intact bilaterally Sensorium / Orientation: alert Psych Mood & Affect: anxious Skin Skin Narrative: Healing wounds without evidence infection abdominal wall. Abdominal wall hematoma. <Dr. Giuliana Pink MD - Last Filed: 12/26/23 02:45> Physical Exam Const Vital Signs: 12/25/23 22:20 12/26/23 00:19 12/26/23 01:14 Temperature 97.3 F L 97.3 F L Temperature Source Temporal Pulse Rate 63 111 H 78 Respiratory Rate 22 H 19 H 15 Blood Pressure 130/72 H 107/63 118/80 Blood Pressure Mean 91 77 92 Pulse Ox 94 100 100 Oxygen Delivery Method Nasal Cannula Room Air Oxygen Flow Rate (L/min) 4 12/26/23 01:15 12/26/23 02:15 Temperature 97.3 F L Temperature Source Temporal Pulse Rate 108 H 112 H Respiratory Rate 14 19 H Blood Pressure 118/80 Blood Pressure Mean 92 Pulse Ox 97 Oxygen Delivery Method Nasal Cannula Room Air Oxygen Flow Rate (L/min) [facility] <Dr. Dimitri Swan MD - Last Filed: 12/30/23 06:58> [facility] Narrative Medical decision making narrative: Review of prior records indicates patient was admitted in October for similar bleeding. Will obtain CT because of the amount of bleeding to determine if there is a vascular injury. PT/INR was obtained since then Coumadin to rule out elevated PT/INR that may be contributing to the bleeding. Nurse applied dressing. CBC was obtained to assess H&H compared to prior. If there is a significant drop in his hemoglobin will type and screen and crossmatch if needed. History & Record Review Additional record(s) reviewed:: Prior inpatient record (Admitted from her bleeding abdominal wall and chronic wound due to cellulitis October this year), Prior ED visit (For epistaxis, upper respiratory infection and nonemergent conditions) and Prior labs Lab Data Attestation: I reviewed the patient's lab results. Lab results narrative: White count is normal. H&H is higher than normal. BUN and creatinine are 43 and 9.97, which is patient's baseline. Glucose is 130. CO2 is normal with a normal anion gap. Labs: Laboratory Results - last 24 hr 12/25/23 22:42 WBC 6.3 RBC 3.64 L Hgb 10.5 L Hct 35.2 L MCV 96.7 H MCH 28.8 MCHC 29.8 L RDW Std Deviation 71.5 H RDW Coeff of Lance 20.2 H Plt Count 278 MPV 9.5 Immature Gran % (Auto) 0.300 Neut % (Auto) 64.9 Lymph % (Auto) 18.6 L [place] % (Auto) 13.9 H Eos % (Auto) 1.8 Baso % (Auto) 0.5 Absolute Neuts (auto) 4.1 Absolute Lymphs (auto) 1.17 Nucleated RBC % 0 Platelet Estimate ADEQUATE RBC Morphology N CHROM Anisocytosis 1+ Macrocytosis 1+ Ovalocytes RARE PT 48.6 H INR 5.4 H* Sodium 134 L Potassium 5.0 Chloride 94 L Carbon Dioxide 29.0 Anion Gap 11 BUN 43 H Creatinine 9.97 H* Estim Creat Clear Calc 12.34 Est GFR (MDRD) Af Amer 7 L Est GFR (MDRD) Non-Af 6 L BUN/Creatinine Ratio 4.3 L Glucose 130 H Calcium 9.7 Total Bilirubin 0.40 Direct Bilirubin 0.12 AST 28 ALT 12 L Alkaline Phosphatase 148 H Total Protein 9.4 H Albumin 3.2 Globulin 6.2 H Radiography Diagnostic Testing: Clinical Impression(s) from Imaging Studies Abdomen/Pelvis CT 12/25/23 22:27 IMPRESSION: No evidence of abdominal wall hematoma. Mild skin thickening and nonspecific prominent vessels along left anterior abdomen. Correlate for clinical evidence of cellulitis. Chondroid-like calcified mass replacing the right pubis and extending inferior, unchanged from prior CT and decreased in size from November 01, 2017 Electronically Signed: Qasim Bertrand MD at 0:36 EDT Reading Location ID and State: [facility] / [place] Tel , Service support , ADDENDUM: 12/26/23 0119 IMPRESSION: undefined Management Discussion w/another healthcare provider: Managed Services Sales Consultant (Poke with cardiology on-call Dr. Reynolds. He was informed the patient has an on axis prosthetic mitral valve. Since patient has expanding hematoma is actively bleeding will administer lower dose of Kcentra and vitamin K. This was discussed with the pharmacist.) and Pharmacist (Regarding reduced dose of Kcentra and vitamin K since patient has a mechanical prosthetic mitral valve, on ask.) Treatment and Re-Evaluation :: Prior to his arrival he saturated 3 trauma pads and gauze pads. Patient has a small bleeding site. Nurses attempted to apply up pressure dressing using trauma pads and gauze. He saturated these pads. I was told by the rehabilitation supervisor that he has significant bleeding. Patient has a small opening of 1 to 2 mm size where blood is flowing from it. Since pressure dressing is not effective a [id number]-ri-[id number] stitch was placed using 4-0 Vicryl since it is the largest suture material we have. Bleeding presently is stopped. Patient left side of abdomen has increased in size concern he has an expanding hematoma. He will need a CT to determine if this is venous or arterial bleeding. Suspect the latter. Patient has significant subcutaneous arterial vessels noted. There is also an abnormality involving the liver. There is no specific area of of contrast blush. Awaiting formal read by radiologist. Informed patient of concerns and need for transfer since we do not have interventional radiology to perform possible embolization. He states his doctor is affiliated with [facility]. He is requesting transfer to [facility]. <Dr. Giuliana Pink MD - Last Filed: 12/26/23 02:45> [facility] Lab Data Labs: Laboratory Results - last 24 hr 12/25/23 22:42 WBC 6.3 RBC 3.64 L Hgb 10.5 L Hct 35.2 L MCV 96.7 H MCH 28.8 MCHC 29.8 L RDW Std Deviation 71.5 H RDW Coeff of Lance 20.2 H Plt Count 278 MPV 9.5 Immature Gran % (Auto) 0.300 Neut % (Auto) 64.9 Lymph % (Auto) 18.6 L [place] % (Auto) 13.9 H Eos % (Auto) 1.8 Baso % (Auto) 0.5 Absolute Neuts (auto) 4.1 Absolute Lymphs (auto) 1.17 Nucleated RBC % 0 Platelet Estimate ADEQUATE RBC Morphology N CHROM Anisocytosis 1+ Macrocytosis 1+ Ovalocytes RARE PT 48.6 H INR 5.4 H* Sodium 134 L Potassium 5.0 Chloride 94 L Carbon Dioxide 29.0 Anion Gap 11 BUN 43 H Creatinine 9.97 H* Estim Creat Clear Calc 12.34 Est GFR (MDRD) Af Amer 7 L Est GFR (MDRD) Non-Af 6 L BUN/Creatinine Ratio 4.3 L Glucose 130 H Calcium 9.7 Total Bilirubin 0.40 Direct Bilirubin 0.12 AST 28 ALT 12 L Alkaline Phosphatase 148 H Total Protein 9.4 H Albumin 3.2 Globulin 6.2 H Radiography Diagnostic Testing: Clinical Impression(s) from Imaging Studies Abdomen/Pelvis CT 12/25/23 22:27 IMPRESSION: No evidence of abdominal wall hematoma. Mild skin thickening and nonspecific prominent vessels along left anterior abdomen. Correlate for clinical evidence of cellulitis. Chondroid-like calcified mass replacing the right pubis and extending inferior, unchanged from prior CT and decreased in size from November 01, 2017 Electronically Signed: Qasim Bertrand MD at 0:36 EDT , ADDENDUM: 12/26/23 0119 IMPRESSION: undefined Treatment and Re-Evaluation :: Prior to his arrival he saturated 3 trauma pads and gauze pads. Patient has a small bleeding site. Nurses attempted to apply up pressure dressing using trauma pads and gauze. He saturated these pads. I was told by the rehabilitation supervisor that he has significant bleeding. Patient has a small opening of 1 to 2 mm size where blood is flowing from it. Since pressure dressing is not effective a thxvhi-bd-hxkdr stitch was placed using 4-0 Vicryl since it is the largest suture material we have. Bleeding presently is stopped. Patient left side of abdomen has increased in size concern he has an expanding hematoma. He will need a CT to determine if this is venous or arterial bleeding. Suspect the latter. Patient has significant subcutaneous arterial vessels noted. There is also an abnormality involving the liver. There is no specific area of of contrast blush. Awaiting formal read by radiologist. Informed patient of concerns and need for transfer since we do not have interventional radiology to perform possible embolization. He states his doctor is affiliated with [facility]. He is requesting transfer to [facility]. Patient signed out to me pending CT scan. CT scan reveals no evidence of hematoma. He has large varicosities under the skin at the site of his wound. I called the radiologist back to specifically ask about the blush that was noted in the liver. He thinks this is consistent with a variable perfusion and not a bleed. Test results are discussed with the patient. His wounds are rechecked and he has had no further bleeding. Patient prefer to stay here if possible and I did speak with hospitalist. He stated that if the surgeon will be willing to come in and help if patient started to bleed again he would keep the patient here. Surgeon reviewed the images and feels that he has so many varicosities there would not be a good target to repair and he may need IR or vascular intervention. Patient's first choice was [facility]. He has been accepted on a wait list there but we have been told that they are well behind and excepting transfers. His second preference was [facility]. I spoke with the transfer line at [facility]. They are not sure that IR will be able to embolize these lesions and he may need surgical intervention. She stated that [facility] in [place] would be willing to accept him for care. This was discussed with the patient and he has agreed to go to [facility] in [place]. We are awaiting a bed assignment at this time. <Dr. Dimitri Swan MD - Last Filed: 12/30/23 06:58> Critical Care Time Critical Care Time: Yes Critical care time (excluding procedures): 30-74 minutes (31), Including time spent: (History, physical, documentation, review of prior records and prior admissions, independent interpretation of laboratory results.), Discussing w/Patient &/or Family/Streaming Media Specialist, Discussing w/Consultants (Cycle Manager, pharmacist), Performing Direct Patient Care at Bedside (Pukrnd-hj-curen stitch to slow bleeding down) and - (Reverse patient's coagulopathy with Kcentra and vitamin K) Discharge Plan Triage Chief Complaint: Wound ED Provider: Dimitri Swan Dx/Rx/DC Orders Clinical Impression: Vascular injury, History of mitral valve replacement with bioprosthetic valve, Anemia in chronic kidney disease, Central retinal artery occlusion of left eye, Warfarin-induced coagulopathy, End-stage renal disease on hemodialysis Prescriptions: No Action aspirin [Adult Aspirin Regimen] 81 mg tablet,delayed release (DR/EC) 81 mg PO DAILY midodrine 10 mg tablet 10 mg PO TID sevelamer carbonate 800 mg tablet 800 mg PO TID Patient Comments: TAKE 3 TABLETS BY MOUTH THREE TIMES DAILY WITH MEALS Velphoro 500 mg tablet,chewable 1,500 mg PO TIDCM Patient Comments: CRUSH OR CHEW AND SWALLOW 3 TABLETS 3 TIMES A DAY WITH MEALS warfarin 3 mg tablet 3 mg PO DAILY Patient Comments: Take 1 tablet by mouth daily as directed. trazodone 100 mg tablet 100 mg PO .hs Patient Comments: Take 1 tablet by mouth daily at bedtime. oxycodone 5 mg Tablet 5 - 10 mg PO Q6H PRN PRN (Reason: Pain Score 6-10) 7 Days Qty: 42 0RF cephalexin 500 mg capsule 500 mg PO DAILY Qty: 7 0RF Rx Instructions: On dialysis days, take after dialysis is completed, start 11/14/2023 (DME) BP monitor large cuff See Rx Instructions .Route .MEDSULY Qty: 1 0RF Rx Instructions: As directed Primary Care Provider: Barb Carrillo Referrals: Barb Carrillo, NURSE RECRUITER-C [Primary Care Provider] - Disposition Disposition: Acute Care Hospital Discharge Location: [facility] Discharge Date/Time: 12/26/23 06:58
[2023-12-25 22:49] LABS: Absolute Lymphocyte Count 1.17 X10^3/uL (0.83-4.51); Absolute Neutrophil Count 4.1 X10^3/uL (2.0-7.7); Basophil# 0.03 X10^3/uL; Basophil% 0.5 % (0-1); Eosinophil# 0.11 X10^3/uL; Eosinophils% 1.8 % (0-5); Hematocrit 35.2 % (40-54); Hemoglobin 10.5 g/dL (13.0-16.5); Lymphocyte # 1.17 X10^3/ul (0.83-4.51); Lymphocyte % 18.6 % (19-41); Mean Corp Hgb Conc 29.8 g/dL (32-36); Mean Corpuscular Hgb 28.8 pg (27.0-32.0); Mean Corpuscular Volume 96.7 fL (80-94); Mean Platelet Vol. 9.5 fl (6.2-12.0); Monocyte# 0.87 X10^3/uL; Monocyte% 13.9 % (0-10); NRBC Flagged by Analyzer 0 % (0-5); Neutrophil # 4.08 X10^3/uL (2.7-7.7); Neutrophil % 64.9 % (47-70); POSITIVE MORPHOLOGY YES; Platelet Count 278 K/mm3 (150-450); RBC Distribution Width CV 20.2 % (11.6-14.6); RBC Distribution Width SD 71.5 fl (35.1-43.9); Red Blood Count 3.64 M/mm3 (4.6-6.2); White Blood Count 6.3 K/mm3 (4.4-11.0)
[2023-12-25 23:08] LABS: Anion Gap 11 (5-15); BUN 43 mg/dL (7-18); BUN/Creat Ratio 4.3 RATIO (10-20); Calcium,Total 9.7 mg/dL (8.5-10.1); Chloride 94 mmol/L (98-107); Creatinine, Serum 9.97 mg/dL (0.70-1.30); EST Glomerular Filtration Rate 6 mL/min (>60); Est Glom Filt Rate - Afr Amer 7 mL/min (>60); Estimated Creatinine Clearance 12.34 ml/min; Glucose 130 mg/dL (74-106); Sodium Level 134 mmol/L (136-145)
[2023-12-25 23:13] LABS: Differential Indicated SCAN CRITERIA MET
[2023-12-25 23:15] LABS: Anisocytosis 1+; Macrocytosis 1+; Ovalocyte RARE; Platelet Estimate ADEQUATE (ADEQ); Red Cell Morphology N CHROM NORMAL (NORM C&C)
[2023-12-25 23:17] LABS: Prothrombin Time (Protime)PT. 48.6 SECONDS (11.7-14.9)
[2023-12-25 23:25] LABS: International Normalized Ratio 5.4
[2023-12-26] VITALS (9 sets, daily range): BP systolic 107–128; BP diastolic 63–99; PULSE 78–116; RESP 14–29; TEMP 36.3–37.1; O2SAT 96–100
[2023-12-26] MEDS: Phytonadione (Vit K) 5 MG in 0.9% Normal Saline (50mL Bag) 50 ML 150 MG IV (00:08)
[2023-12-26] MEDS: HUMAN PROTHROMBIN COMPLX(PCC) 2,500 UNIT in Viaflex Bag 1 BAG 500 UNIT IV (00:08)
[2023-12-26] MEDS: Morphine 4 MG/ML Syringe IV (00:22)
[2023-12-26] MEDS: fentaNYL 100 MCG/2 ML Ampul 25 MCG IV (01:21)
[2023-12-26 01:39] LABS: AST(SGOT) 28 U/L (15-37); Alanine Aminotransfer ALT/SGPT 12 U/L (16-61); Albumin, Serum 3.2 g/dL (3.2-5.0); Alkaline Phosphatase 148 U/L (45-117); Bilirubin, Direct 0.12 mg/dL (0.00-0.30); Globulin 6.2 g/dL (2.2-4.2); Protein, Total 9.4 g/dL (6.4-8.2)
--- NOTE | 2023-12-26 02:11 | ED.RN ---
0158 spoke to transfer center from [facility] to arrange transfer,stated they are busy and will call back when spoke to physicians.
--- NOTE | 2023-12-26 02:13 | ED.RN ---
Call out to [facility] reguarding transfer of pt.reconciliation coordinator spoke to Dr. Pink.
[2023-12-26] MEDS: HYDROmorphone 0.5 MG/0.5 ML SYRINGE IV (02:54)
--- NOTE | 2023-12-26 03:53 | ED.RN ---
CALL TO [facility], PRESENTLY LOOKING AT 2-3 HOURS BEFORE TRANSEFER. THEY WILL TRY TO OUT SOURCE TO ANOTHER AMBULANCE SERVICE.
--- NOTE | 2023-12-26 06:57 | NURSING ---
The pt asked this RN to call his and update her. This RN Called his to let her know that he is being transferred to [place] in [place]. The was aware.
== END 2023-12-26 06:58 | disposition short-term general hospital (02) ==
PROVIDERS: Emergency Medicine; Emergency Provider Emergency Medicine; PCP Nurse Practitioner Family; Visit Provider Emergency Medicine
DX: S39.91XA Unspecified injury of abdomen, initial encounter (principal); I12.0 Hypertensive chronic kidney disease with stage 5 chronic kidney disease or end stage renal disease; N18.6 End stage renal disease; H34.8122 Central retinal vein occlusion, left eye, stable; I48.0 Paroxysmal atrial fibrillation; I25.2 Old myocardial infarction; D63.1 Anemia in chronic kidney disease; F12.90 Cannabis use, unspecified, uncomplicated; R79.1 Abnormal coagulation profile; G47.33 Obstructive sleep apnea (adult) (pediatric); Z99.2 Dependence on renal dialysis; X58.XXXA Exposure to other specified factors, initial encounter; Z79.01 Long term (current) use of 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s; Z86.16 Personal history of COVID-19; Z86.711 Personal history of pulmonary embolism
CPT/HCPCS: 74177; 80048; 80076; 85025; 85610; 96365; 96367; 96375; 99285; J7168; Q9967; J3490

== ENCOUNTER 2024-01-16 13:59 | Outpatient (RCR) | payer MEDICARE, SELFPAY ==
[2024-01-06 15:48] LABS: International Normalized Ratio 2.9; Prothrombin Time (Protime)PT. 29.9 SECONDS (11.7-14.9)
[2024-01-16 15:04] LABS: International Normalized Ratio 2.1; Prothrombin Time (Protime)PT. 23.4 SECONDS (11.7-14.9)
== END 2024-01-27 23:01 | disposition home or self-care (01) ==
LOC: LAB 13:59
PROVIDERS: PCP Nurse Practitioner Family; Referring Provider Internal Medicine Cardiovascular Disease; Visit Provider Internal Medicine Cardiovascular Disease
DX: I48.0 Paroxysmal atrial fibrillation (principal)
CPT/HCPCS: 36415; 85610

== ENCOUNTER 2024-01-17 12:41 | Emergency (ER) | payer MEDICARE, SELFPAY ==
[2024-01-17 12:42] VITALS: BP 103/63; PULSE 88; RESP 16; TEMP 36.6; O2SAT 98; BMI 26.5
--- NOTE | 2024-01-17 13:06 | EDS_ITS ---
HPI History of Present Illness Chief Complaint: Wound Detail of Chief Complaint: Bleeding from chronic abdominal wound. Informant: patient and family Onset/Context/Timing Onset: Today Context: Gradual Onset Current Severity: Mild Maximum Severity: Mild Narrative Narrative: 43-year-old male end-stage renal disease dialysis, prior [place] on Coumadin. Had his INR checked yesterday was 2.1. He was get dialysis today gets dialysis Friday and Saturdays. And one of his wound started bleeding. They sent him in for evaluation. He denies any other complaints. No recent illness. Family is with him. 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) Central retinal artery occlusion of left eye (10/09/20) Chronic kidney disease-mineral and bone disorder Chronic pelvic pain in male Chronic ulcer of back COVID-19 virus detected (10/02/21) Daily headache Dental caries Dialysis AV fistula malfunction Dialysis patient ESRD on hemodialysis Essential (primary) hypertension Expressive aphasia (04/05/20) Hearing loss Hematuria History of bacterial endocarditis History of blood clots History of non-ST elevation myocardial infarction (NSTEMI) (11/08/19) History of pulmonary embolus (PE) History of venous thromboembolism 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 due to renal insufficiency Hypotension of hemodialysis 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 [facility] current use of 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 Mechanical complication of arteriovenous fistula surgically created Medication side effects Mitral valve annular calcification Morbidly obese Non compliance w medication regimen Non-healing non-surgical wound Nonrheumatic mitral valve stenosis with insufficiency Obstructive sleep apnea Pain of right lower extremity Paroxysmal atrial fibrillation (06/10/20) Paroxysmal atrial flutter 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) Pelvic mass Postoperative complete heart block (08/21/21) Sepsis Thrombosis of kidney dialysis arteriovenous graft Unspecified symptoms and signs involving cognitive functions and awareness (04/05/20) Home Medications BP monitor #1 ea 07/17/21 [Rx Last Taken Unknown] aspirin 81 mg tablet,delayed release (Adult Aspirin Regimen) 81 mg PO DAILY 10/29/21 [History Last Taken Unknown] midodrine 10 mg tablet 10 mg PO TID 10/29/21 [History Last Taken Unknown] sevelamer carbonate 800 mg tablet 800 mg PO TID 06/25/22 [History Last Taken Unknown] sucroferric oxyhydroxide 500 mg chewable tablet (Velphoro) 1,500 mg PO TIDCM 11/11/23 [History Last Taken Unknown] warfarin 3 mg tablet 3 mg PO DAILY 11/11/23 [History Last Taken Unknown] trazodone 100 mg tablet 100 mg PO .hs sleep 11/12/23 [History Last Taken 11/12/23] cephalexin 500 mg capsule 500 mg PO DAILY #7 caps 11/14/23 [Rx Last Taken Unknown] oxycodone 5 mg tablet 5 - 10 mg (1 - 2 x 5 mg) PO Q6H PRN PRN Pain Score 6-10 7 days #42 tabs 11/14/23 [Rx Last Taken Unknown] Allergy/AdvReac Type Severity Reaction Status Date / Time gabapentin Allergy Other Verified 12/25/23 22:20 Family History Other Adopted Surgical History History of angioplasty of peripheral vessel (08/28/21) History of cardioversion (12/02/18) history of cather replacement History of herniorrhaphy History of left heart catheterization (09/17/18) History of mitral valve replacement with bioprosthetic valve (08/21/21) History of repair of congenital cleft palate History of right and left heart catheterization (08/16/21) History of tooth extraction, class IV edentulism (09/11/21) Hx of mitral valve replacement Mechanical complication of dialysis catheter Status post creation of arteriovenous fistula Social History household members: none Smoking Status: Never smoker alcohol intake: never substance use type: marijuana what type of physical activity do you participate in: none ROS ROS ED ROS Narrative Denies recent illness. Review of Systems ROS Unobtainable: Denies due to encephalopathy Constitutional Constitutional ED: Denies chills or fever(s) Eyes Eyes: Denies blurry vision ENT ENT ED: Denies ear pain Cardiovascular Cardiovascular: Denies chest pain Respiratory/Chest Respiratory/Chest: Denies cough or dyspnea Gastrointestinal Gastrointestinal: Denies abdominal pain Genitourinary Genitourinary ED: Denies dysuria or hematuria Musculoskeletal Musculoskeletal: Denies arthralgias Integumentary Denies abscess Neurologic Neurologic: Denies headache(s) Psychiatric Psychiatric: Denies anxiety Endocrine Endocrinology: Denies cold intolerance Hematologic/Lymphatic Hematologic/Lymphatic: Reports none Allergic/Immunologic Allergic/Immunologic ED: Denies mouth swelling, tongue swelling or urticaria EXAM Physical Exam Narrative Exam Narrative: 43-year-old male vital signs stable afebrile. Does not look septic toxic. No distress. Sitting upright in bed. Family at bedside. HEENT exam unremarkable. Neck nontender. Lungs clear to auscultation. Heart regular rhythm rate about 85 no murmur. Chest wall and ribs nontender. Abdomen soft nontender. He has chronic wounds on his left side of his abdominal wall and left flank. There is minimal oozing of one of them. Currently there is no heavy bleeding. There is no infection. He has chronic scarring on his abdominal wall. Moving all 4 extremities. Trace edema both lower extremities. Neurologically he is awake and alert with no focal motor deficits. Answering questions following commands. Const Vital Signs: 01/17/24 12:42 01/17/24 12:42 Temperature 97.8 F Temperature Source Temporal Pulse Rate 88 Respiratory Rate 16 Blood Pressure 103/63 Blood Pressure Mean 76 Pulse Ox 98 Oxygen Delivery Method Room Air Positive well nourished and well developed; Negative for cachectic, contractures or unkempt General Appearance ED: well developed and NAD; Negative for unkempt, cachectic, contractures, cyanotic or diaphoretic Nutritional Appearance: Negative for cachectic HEENT Reports moist mucous membranes; Denies dry mucous membranes Negative for trauma or tenderness Mouth ED: No dry mucous membranes Mouth: No dry mucous membranes Eyes PERRL and EOMs intact bilaterally General Eye ED: Negative for pale conjunctiva, scleral icterus or other Neck no lymphadenopathy, supple and no JVD General: Negative for tenderness Lymph Lymphatic: Negative for other Chest Wall inspection of chest normal and palpation of chest normal Chest: Negative for other Resp normal respiratory effort and clear to auscultation bilaterally Effort and Inspection: Negative for retractions Auscultation: Negative for rales, rhonchi or wheezes Cardio regular rate, regular rhythm, S1 normal heart sound, S2 normal heart sound and no murmurs GI normal to inspection, nondistended, normoactive bowel sounds, non-tender, non- distended and no masses GI Narrative: Left side abdominal wall chronic wounds 1 mildly oozing. No infection. Chronic scarring. Auscultation: normoactive bowel sounds Palpation: soft; Negative for tender, guarding or rebound tenderness present Back/Spine no CVA tenderness Extremity Negative for normal to inspection General Extremety ED: Yes edema; Negative for tenderness General Extremity: edema Neuro oriented x3 Sensorium / Orientation: alert; Negative for orientation impaired Motor Exam: strength 5/5 throughout Psych mental status grossly normal Appearance: Negative for unkempt Attitude: No agitated Mood & Affect: Negative for depressed, anxious or tearful Skin no rashes or lesions noted and No no wounds Skin Narrative: Chronic left-sided abdominal wounds. General Skin Exam: Negative for jaundice Rashes: No rashes noted Trauma: Negative for abrasion MDM MDM MDM Narrative Medical decision making narrative: 43-year-old male gets dialysis has chronic abdominal wounds occasionally they bleed. Currently there is no signs of infection. Bleeding is minimal. Nurses will clean and dress him. He will be discharged home. He is on Coumadin his INR was checked yesterday it was 2.1. He and family are comfortable with the plan. Discharge Plan Triage Chief Complaint: Wound ED Provider: Sherman Barr Dx/Rx/DC Orders Clinical Impression: Chronic wound, Chronic anticoagulation, Bleeding, End stage chronic kidney disease, Dialysis patient Prescriptions: No Action aspirin [Adult Aspirin Regimen] 81 mg tablet,delayed release (DR/EC) 81 mg PO DAILY midodrine 10 mg tablet 10 mg PO TID sevelamer carbonate 800 mg tablet 800 mg PO TID Patient Comments: TAKE 3 TABLETS BY MOUTH THREE TIMES DAILY WITH MEALS Velphoro 500 mg tablet,chewable 1,500 mg PO TIDCM Patient Comments: CRUSH OR CHEW AND SWALLOW 3 TABLETS 3 TIMES A DAY WITH MEALS warfarin 3 mg tablet 3 mg PO DAILY Protocol: Dose Management Condition: Friday Dose/Route: 3 mg Instruction: 1 x 3 mg tablet Condition: Friday Dose/Route: 3 mg Instruction: 1 x 3 mg tablet Condition: Friday Dose/Route: 3 mg Instruction: 1 x 3 mg tablet Condition: Friday Dose/Route: 3 mg Instruction: 1 x 3 mg tablet Condition: Dose/Route: 4.5 mg Instruction: 1.5 x 3 mg tablets Condition: Friday Dose/Route: 3 mg Instruction: 1 x 3 mg tablet Condition: Friday Dose/Route: 3 mg Instruction: 1 x 3 mg tablet Protocol Text: Adjustment Start Date: Friday01/16/24 INR Value: 2.1 INR Date: 01/16/24 Recheck Date: 02/15/24 Patient Comments: Take 1 tablet by mouth daily as directed. trazodone 100 mg tablet 100 mg PO .hs Patient Comments: Take 1 tablet by mouth daily at bedtime. oxycodone 5 mg Tablet 5 - 10 mg PO Q6H PRN PRN (Reason: Pain Score 6-10) 7 Days Qty: 42 0RF cephalexin 500 mg capsule 500 mg PO DAILY Qty: 7 0RF Rx Instructions: On dialysis days, take after dialysis is completed, start 11/14/2023 (DME) BP monitor large cuff See Rx Instructions .Route .MEDSUPPLY Qty: 1 0RF Rx Instructions: As directed Primary Care Provider: Barb Carrillo Referrals: Barb Carrillo, [employer] [Primary Care Provider] - As Needed Activity Restrictions/Additional Instructions: Keep the wounds clean and covered. If rebleeds direct pressure for 30 minutes if unable to stop obviously can return. Disposition Disposition: Home, Self Care
[2024-01-17 13:37] VITALS: BP 104/78; PULSE 78; RESP 16; TEMP 36.4; O2SAT 99
== END 2024-01-17 13:37 | disposition home or self-care (01) ==
LOC: ED 13:19
PROVIDERS: Emergency Provider Emergency Medicine; PCP Nurse Practitioner Family; Visit Provider Emergency Medicine
DX: S31.109A Unspecified open wound of abdominal wall, unspecified quadrant without penetration into peritoneal cavity, initial encounter (principal); I12.0 Hypertensive chronic kidney disease with stage 5 chronic kidney disease or end stage renal disease; N18.6 End stage renal disease; Z99.2 Dependence on renal dialysis; F12.90 Cannabis use, unspecified, uncomplicated; I25.2 Old myocardial infarction; G47.33 Obstructive sleep apnea (adult) (pediatric); Z86.711 Personal history of pulmonary embolism; Z86.16 Personal history of COVID-19; Z79.01 Long term (current) use of 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s; X58.XXXA Exposure to other specified factors, initial encounter
CPT/HCPCS: 99282

== ENCOUNTER 2024-01-28 22:05 | Emergency (ER) | payer MEDICARE, MEDICAID, SELFPAY ==
[2024-01-28 22:05] VITALS: BP 122/79; PULSE 116; RESP 18; TEMP 36.4; O2SAT 97; BMI 36.8
[2024-01-28 22:06] VITALS: PULSE 104
--- NOTE | 2024-01-28 22:47 | EX.ED.DYSGE1 ---
HPI History of Present Illness Chief Complaint: Wound Informant: patient Narrative Narrative: 43-year-old male on warfarin and has a's history of ESRD states he had some bleeding from an abdominal wound on the left side earlier today but it stopped, then it recurred just prior to arrival severely, not sure how much blood I lost in my car on the way here. He denies any systemic symptoms or feeling lightheaded. 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) Central retinal artery occlusion of left eye (10/09/20) Chronic kidney disease-mineral and bone disorder Chronic pelvic pain in male Chronic ulcer of back COVID-19 virus detected (10/02/21) Daily headache Dental caries Dialysis AV fistula malfunction Dialysis patient ESRD on hemodialysis Essential (primary) hypertension Expressive aphasia (04/05/20) Hearing loss Hematuria History of bacterial endocarditis History of blood clots History of non-ST elevation myocardial infarction (NSTEMI) (11/08/19) History of pulmonary embolus (PE) History of venous thromboembolism 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 due to renal insufficiency Hypotension of hemodialysis 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 [facility] current use of 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 Mechanical complication of arteriovenous fistula surgically created Medication side effects Mitral valve annular calcification Morbidly obese Non compliance w medication regimen Non-healing non-surgical wound Nonrheumatic mitral valve stenosis with insufficiency Obstructive sleep apnea Pain of right lower extremity Paroxysmal atrial fibrillation (06/10/20) Paroxysmal atrial flutter 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) Pelvic mass Postoperative complete heart block (08/21/21) Sepsis Thrombosis of kidney dialysis arteriovenous graft Unspecified symptoms and signs involving cognitive functions and awareness (04/05/20) Home Medications BP monitor #1 ea 07/17/21 [Rx Last Taken Unknown] aspirin 81 mg tablet,delayed release (Adult Aspirin Regimen) 81 mg PO DAILY 10/29/21 [History Last Taken Unknown] midodrine 10 mg tablet 10 mg PO TID 10/29/21 [History Last Taken Unknown] sevelamer carbonate 800 mg tablet 800 mg PO TID 06/25/22 [History Last Taken Unknown] sucroferric oxyhydroxide 500 mg chewable tablet (Velphoro) 1,500 mg PO TIDCM 11/11/23 [History Last Taken Unknown] warfarin 3 mg tablet 1.5 mg PO DAILY 11/11/23 [History Last Taken Unknown] trazodone 100 mg tablet 100 mg PO .hs sleep 11/12/23 [History Last Taken 11/12/23] oxycodone 5 mg tablet 5 - 10 mg (1 - 2 x 5 mg) PO Q6H PRN PRN Pain Score 6-10 7 days #42 tabs 11/14/23 [Rx Last Taken Unknown] Allergy/AdvReac Type Severity Reaction Status Date / Time gabapentin Allergy Other Verified 12/25/23 22:20 Family History Other Adopted Surgical History History of angioplasty of peripheral vessel (08/28/21) History of cardioversion (12/02/18) history of cather replacement History of herniorrhaphy History of left heart catheterization (09/17/18) History of mitral valve replacement with bioprosthetic valve (08/21/21) History of repair of congenital cleft palate History of right and left heart catheterization (08/16/21) History of tooth extraction, class IV edentulism (09/11/21) Hx of mitral valve replacement Mechanical complication of dialysis catheter Status post creation of arteriovenous fistula Social History household members: none Smoking Status: Never smoker alcohol intake: never substance use type: marijuana what type of physical activity do you participate in: none ROS ROS ED Constitutional Constitutional ED: Denies weakness Cardiovascular Cardiovascular: Denies chest pain, lightheadedness or syncope Respiratory/Chest Respiratory/Chest: Denies dyspnea Musculoskeletal Musculoskeletal: Denies back pain or neck pain Integumentary Reports as per HPI and bleeding lesions EXAM Physical Exam Const Vital Signs: 01/28/24 22:05 01/28/24 22:06 01/28/24 23:43 Temperature 97.6 F L Temperature Source Temporal Pulse Rate 116 H 104 H Pulse Rate [Lying] 110 H Pulse Rate [Sitting (for 1 minute prior to obtaining)] 115 H Respiratory Rate 18 Blood Pressure 122/79 H Blood Pressure [Lying] 92/57 L Blood Pressure [Sitting (for 1 minute prior to obtaining)] 84/54 L Blood Pressure Mean 93 Blood Pressure Mean [Lying] 68 Blood Pressure Mean [Sitting (for 1 minute prior to obtaining)] 64 Pulse Ox 97 Oxygen Delivery Method Room Air 01/29/24 00:06 01/29/24 01:00 01/29/24 02:00 Temperature Temperature Source Pulse Rate 125 H 120 H 111 H Pulse Rate [Lying] Pulse Rate [Sitting (for 1 minute prior to obtaining)] Respiratory Rate 117 H 17 17 Blood Pressure 114/74 93/45 L 78/57 L Blood Pressure [Lying] Blood Pressure [Sitting (for 1 minute prior to obtaining)] Blood Pressure Mean 87 61 64 Blood Pressure Mean [Lying] Blood Pressure Mean [Sitting (for 1 minute prior to obtaining)] Pulse Ox 94 93 93 Oxygen Delivery Method Room Air Room Air Room Air 01/29/24 02:56 01/29/24 03:00 Temperature 97.8 F Temperature Source Pulse Rate 114 H 115 H Pulse Rate [Lying] Pulse Rate [Sitting (for 1 minute prior to obtaining)] Respiratory Rate 18 16 Blood Pressure 110/62 96/63 Blood Pressure [Lying] Blood Pressure [Sitting (for 1 minute prior to obtaining)] Blood Pressure Mean 78 74 Blood Pressure Mean [Lying] Blood Pressure Mean [Sitting (for 1 minute prior to obtaining)] Pulse Ox 95 95 Oxygen Delivery Method Room Air Positive well nourished, well developed and obese General Appearance ED: well developed and NAD Nutritional Appearance: obese Neuro oriented x3, CN's II-XII intact bilaterally, no sensory deficits noted and gait normal Motor Exam: strength 5/5 throughout Skin Skin Narrative: None infected superficially ulcerated patch of skin on his left abdominal wall, there appears to be a bleeding venous lesion, actively pouring dark red blood out of it. It is tender when pressing firmly, but otherwise is not tender to superficial palpation. There is no pulsatile bleeding. There is also a small wound on his lower abdomen, there is a piece of [place] on it with good hemostasis and no dressing over it. It is nontender. MDM MDM MDM Narrative Medical decision making narrative: I was called to the room emergently by nurses to help control hemorrhage. I injected 2 cc of 1% lidocaine containing epinephrine, which did not help and hemorrhage control, followed by a single 5-0 chromic stitch which did not alter and then followed by a single 4-0 Ethilon. This slowed the bleeding a little but it was still actively hemorrhaging. I placed a piece of [place] against it with a wad of gauze and gauze over top of it with point pressure there was good hemostasis and no active bleeding. And placing the bulk of gauze over this and a large piece of tape there is no bleeding out from this indicating there is good hemostasis temporarily. Obtain blood counts, hemoglobin 9.3, I did orthostatics afterwards since he had just had bleeding, they are borderline and he states he feels weaker than usual. He was asking for pain medication for his back mostly not the wound, chronic issues so he was given a [place]. His INR is 1.5. Performing orthostatics very challenging on him, he states he does not stand, and he cannot sit because of chronic wounds. Therefore in order to rule out the possibility of significant blood loss given the amount of hemorrhage that he had just here in front of us, we are observing him for a while in order to recheck his H&H a couple hours later. It actually is a little higher. There is no bleeding from the wound. However we are not uncovering the dressing to check. I do not think there is any reason to right now. Advised him to leave it on unless he has recurrent bleeding or it is time to get the suture out, 1-2 weeks. Stable for discharge. Lab Data Attestation: I reviewed the patient's lab results. Labs: Laboratory Results - last 24 hr 01/28/24 01/29/24 22:57 02:18 WBC 6.4 RBC 3.31 L Hgb 9.3 L 9.6 L Hct 31.5 L 32.6 L MCV 95.2 H MCH 28.1 MCHC 29.5 L RDW Std Deviation 65.3 H RDW Coeff of Lance 18.8 H Plt Count 230 MPV 9.5 PT 18.5 H INR 1.5 Procedures Other Procedures Procedure(s): Bleeding control -- see above for details Discharge Plan Triage Chief Complaint: Wound ED Provider: Dmitriy Matos Dx/Rx/DC Orders Clinical Impression: Hemorrhage from wound, ABLA (acute blood loss anemia) Instructions: ED Post Op Wound Check, Bleeding Prescriptions: No Action aspirin [Adult Aspirin Regimen] 81 mg tablet,delayed release (DR/EC) 81 mg PO DAILY midodrine 10 mg tablet 10 mg PO TID sevelamer carbonate 800 mg tablet 800 mg PO TID Patient Comments: TAKE 3 TABLETS BY MOUTH THREE TIMES DAILY WITH MEALS Velphoro 500 mg tablet,chewable 1,500 mg PO TIDCM Patient Comments: CRUSH OR CHEW AND SWALLOW 3 TABLETS 3 TIMES A DAY WITH MEALS warfarin 3 mg tablet 1.5 mg PO DAILY Protocol: Dose Management Condition: Friday Dose/Route: 1.5 mg Instruction: 0.5 x 3 mg tablets Condition: Friday Dose/Route: 1.5 mg Instruction: 0.5 x 3 mg tablets Condition: Friday Dose/Route: 1.5 mg Instruction: 0.5 x 3 mg tablets Condition: Friday Dose/Route: 1.5 mg Instruction: 0.5 x 3 mg tablets Condition: Dose/Route: 1.5 mg Instruction: 0.5 x 3 mg tablets Condition: Friday Dose/Route: 1.5 mg Instruction: 0.5 x 3 mg tablets Condition: Friday Dose/Route: 1.5 mg Instruction: 0.5 x 3 mg tablets Protocol Text: Adjustment Start Date: Friday01/19/24 INR Value: 2.1 INR Date: 01/16/24 Recheck Date: 01/23/24 Patient Comments: Take 1 tablet by mouth daily as directed. trazodone 100 mg tablet 100 mg PO .hs Patient Comments: Take 1 tablet by mouth daily at bedtime. oxycodone 5 mg Tablet 5 - 10 mg PO Q6H PRN PRN (Reason: Pain Score 6-10) 7 Days Qty: 42 0RF (DME) BP monitor large cuff See Rx Instructions .Route .MEDSUPPLY Qty: 1 0RF Rx Instructions: As directed Primary Care Provider: Barb Carrillo Referrals: Barb Carrillo, [employer] [Primary Care Provider] - 10 Day for suture removal Activity Restrictions/Additional Instructions: Leave dressing in place as long as possible unless one of the following occurs: You start bleeding from it, in which case we recommend returning to the ER immediately if you are not able to easily control the bleeding, or suture is ready to be removed, 7-10 days. Disposition Disposition: Home, Self Care Discharge Date/Time: 01/29/24 03:42
[2024-01-28 23:04] LABS: Hematocrit 31.5 % (40-54); Hemoglobin 9.3 g/dL (13.0-16.5); Mean Corp Hgb Conc 29.5 g/dL (32-36); Mean Corpuscular Hgb 28.1 pg (27.0-32.0); Mean Corpuscular Volume 95.2 fL (80-94); Mean Platelet Vol. 9.5 fl (6.2-12.0); POSITIVE MORPHOLOGY YES; Platelet Count 230 K/mm3 (150-450); RBC Distribution Width CV 18.8 % (11.6-14.6); RBC Distribution Width SD 65.3 fl (35.1-43.9); Red Blood Count 3.31 M/mm3 (4.6-6.2); White Blood Count 6.4 K/mm3 (4.4-11.0)
[2024-01-28] MEDS: Lidocaine 1% /Epi 1:100 (20ml) 20 ML Vial 5 ML INFILT (23:10)
[2024-01-28 23:11] LABS: International Normalized Ratio 1.5; Prothrombin Time (Protime)PT. 18.5 SECONDS (11.7-14.9)
[2024-01-28 23:37] LABS: Scan Indicated on CBC? Y/N YES- FLAGS NOTED
[2024-01-28 23:43] VITALS: BP 84/54; BP 92/57; PULSE 110; PULSE 115
[2024-01-28] MEDS: HYDROcodone Bitartrate/Apap 5/325 Tablet PO (23:54)
[2024-01-29 00:06] VITALS: BP 114/74; PULSE 125; RESP 117; O2SAT 94
[2024-01-29 01:00] VITALS: BP 93/45; PULSE 120; RESP 17; O2SAT 93
[2024-01-29 02:00] VITALS: BP 78/57; PULSE 111; RESP 17; O2SAT 93
[2024-01-29 02:22] LABS: Hematocrit 32.6 % (40-54); Hemoglobin 9.6 g/dL (13.0-16.5)
[2024-01-29 02:56] VITALS: BP 110/62; PULSE 114; RESP 18; TEMP 36.6; O2SAT 95
[2024-01-29 03:00] VITALS: BP 96/63; PULSE 115; RESP 16; O2SAT 95
== END 2024-01-29 03:42 | disposition home or self-care (01) ==
PROVIDERS: Emergency Provider Emergency Medicine; PCP Nurse Practitioner Family; Visit Provider Emergency Medicine
DX: S31.109A Unspecified open wound of abdominal wall, unspecified quadrant without penetration into peritoneal cavity, initial encounter (principal); N18.6 End stage renal disease; D62 Acute posthemorrhagic anemia; F12.90 Cannabis use, unspecified, uncomplicated; Z79.01 Long term (current) use of 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s; X58.XXXA Exposure to other specified factors, initial encounter; Z86.16 Personal history of COVID-19; I25.2 Old myocardial infarction; Z86.711 Personal history of pulmonary embolism; G47.33 Obstructive sleep apnea (adult) (pediatric)
CPT/HCPCS: 85014; 85018; 85027; 85610; 99284; A4216

== ENCOUNTER 2024-02-17 19:58 | Emergency (ER) | payer MEDICARE, MEDICAID, SELFPAY ==
[2024-02-17] VITALS (14 sets, daily range): BP systolic 77–111; BP diastolic 47–87; PULSE 106–145; RESP 14–39; TEMP 36.4–37; O2SAT 94–99; BMI 39.4
[2024-02-17] MEDS: 0.9% Normal Saline (1000mL) 1,000 ML 999 ML IV (20:15)
[2024-02-17] MEDS: fentaNYL 100 MCG/2 ML Ampul 25 MCG IV (20:25)
[2024-02-17 20:36] LABS: Absolute Lymphocyte Count 2.75 X10^3/uL (0.83-4.51); Absolute Neutrophil Count 5.6 X10^3/uL (2.0-7.7); Basophil# 0.03 X10^3/uL; Basophil% 0.3 % (0-1); Eosinophil# 0.13 X10^3/uL; Eosinophils% 1.3 % (0-5); Hematocrit 28.3 % (40-54); Hemoglobin 7.9 g/dL (13.0-16.5); Lymphocyte # 2.75 X10^3/ul (0.83-4.51); Lymphocyte % 27.9 % (19-41); Mean Corp Hgb Conc 27.9 g/dL (32-36); Mean Corpuscular Hgb 26.7 pg (27.0-32.0); Mean Corpuscular Volume 95.6 fL (80-94); Monocyte# 1.25 X10^3/uL; Monocyte% 12.7 % (0-10); NRBC Flagged by Analyzer 0.2 % (0-5); POSITIVE MORPHOLOGY YES; Platelet Count 429 K/mm3 (150-450); RBC Distribution Width CV 19.5 % (11.6-14.6); RBC Distribution Width SD 66.7 fl (35.1-43.9); Red Blood Count 2.96 M/mm3 (4.6-6.2); White Blood Count 9.8 K/mm3 (4.4-11.0)
[2024-02-17 20:40] LABS: Differential Indicated SCAN CRITERIA MET
[2024-02-17] MEDS: fentaNYL 100 MCG/2 ML Ampul 50 MCG IV (20:45)
[2024-02-17 20:59] LABS: Anion Gap 14 (5-15); BUN 29 mg/dL (7-18); BUN/Creat Ratio 3.4 RATIO (10-20); Calcium,Total 9.4 mg/dL (8.5-10.1); Chloride 95 mmol/L (98-107); Creatinine, Serum 8.61 mg/dL (0.70-1.30); EST Glomerular Filtration Rate 7 mL/min (>60); Est Glom Filt Rate - Afr Amer 9 mL/min (>60); Estimated Creatinine Clearance 14.95 ml/min; Glucose 148 mg/dL (74-106); Sodium Level 134 mmol/L (136-145); Troponin-I HS 28 pg/mL (3.0-78.0)
[2024-02-17 21:17] LABS: Anisocytosis 1+; Differential Comment SCANNED
--- NOTE | 2024-02-17 21:26 | EX.ED.DYSGE1 ---
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) Central retinal artery occlusion of left eye (10/09/20) Chronic kidney disease-mineral and bone disorder Chronic pelvic pain in male Chronic ulcer of back COVID-19 virus detected (10/02/21) Daily headache Dental caries Dialysis AV fistula malfunction Dialysis patient ESRD on hemodialysis Essential (primary) hypertension Expressive aphasia (04/05/20) Hearing loss Hematuria History of bacterial endocarditis History of blood clots History of non-ST elevation myocardial infarction (NSTEMI) (11/08/19) History of pulmonary embolus (PE) History of venous thromboembolism 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 due to renal insufficiency Hypotension of hemodialysis 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 Mechanical complication of arteriovenous fistula surgically created Medication side effects Mitral valve annular calcification Morbidly obese Non compliance w medication regimen Non-healing non-surgical wound Nonrheumatic mitral valve stenosis with insufficiency Obstructive sleep apnea Pain of right lower extremity Paroxysmal atrial fibrillation (06/10/20) Paroxysmal atrial flutter 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) Pelvic mass Postoperative complete heart block (08/21/21) Sepsis Thrombosis of kidney dialysis arteriovenous graft Unspecified symptoms and signs involving cognitive functions and awareness (04/05/20) Home Medications ?Medication ?Instructions ?Recorded ?Last Taken ?Type BP monitor #1 ea 07/17/21 Unknown Rx aspirin 81 mg tablet,delayed 81 mg PO DAILY 10/29/21 Unknown History release (Adult Aspirin Regimen) midodrine 10 mg tablet 10 mg PO TID 10/29/21 Unknown History sevelamer carbonate 800 mg tablet 800 mg PO TID 06/25/22 Unknown History sucroferric oxyhydroxide 500 mg 1,500 mg PO TIDCM 11/11/23 Unknown History chewable tablet (Velphoro) warfarin 3 mg tablet 1.5 mg PO DAILY 11/11/23 Unknown History trazodone 100 mg tablet 100 mg PO .hs sleep 11/12/23 11/12/23 History oxycodone 5 mg tablet 5 - 10 mg (1 - 2 x 5 mg) PO Q6H 11/14/23 Unknown Rx PRN PRN Pain Score 6-10 7 days #42 tabs Allergy/AdvReac Type Severity Reaction Status Date / Time gabapentin Allergy Other Verified 12/25/23 22:20 Family History Other Adopted Surgical History History of angioplasty of peripheral vessel (08/28/21) History of cardioversion (12/02/18) history of cather replacement History of herniorrhaphy History of left heart catheterization (09/17/18) History of mitral valve replacement with bioprosthetic valve (08/21/21) History of repair of congenital cleft palate History of right and left heart catheterization (08/16/21) History of tooth extraction, class IV edentulism (09/11/21) Hx of mitral valve replacement Mechanical complication of dialysis catheter Status post creation of arteriovenous fistula Social History household members: none Smoking Status: Never smoker alcohol intake: never substance use type: marijuana what type of physical activity do you participate in: none EXAM Physical Exam Const Vital Signs: 02/17/24 19:59 02/17/24 20:10 02/17/24 20:12 Temperature 97.5 F L Temperature Source Temporal Pulse Rate 144 H 137 H Respiratory Rate 27 H 14 Blood Pressure 105/74 86/58 L 77/62 L Blood Pressure Mean 84 67 67 Pulse Ox 97 Oxygen Delivery Method Nasal Cannula Nasal Cannula Oxygen Flow Rate (L/min) 02/17/24 20:16 02/17/24 20:24 02/17/24 20:25 Temperature Temperature Source Pulse Rate 135 H Respiratory Rate 35 H Blood Pressure 89/60 L 111/87 H Blood Pressure Mean 69 95 Pulse Ox 98 Oxygen Delivery Method Nasal Cannula Nasal Cannula Oxygen Flow Rate (L/min) 5 5 02/17/24 20:30 02/17/24 20:37 02/17/24 20:40 Temperature Temperature Source Pulse Rate 145 H 140 H Respiratory Rate 39 H 17 Blood Pressure 92/59 L 102/58 L Blood Pressure Mean 70 72 Pulse Ox 99 94 Oxygen Delivery Method Nasal Cannula Nasal Cannula Nasal Cannula Oxygen Flow Rate (L/min) 02/17/24 20:50 02/17/24 20:55 02/17/24 21:00 Temperature Temperature Source Pulse Rate 136 H 137 H 140 H Respiratory Rate 17 19 H 30 H Blood Pressure 98/61 78/52 L 95/47 L Blood Pressure Mean 73 60 63 Pulse Ox 95 98 99 Oxygen Delivery Method Nasal Cannula Nasal Cannula Nasal Cannula Oxygen Flow Rate (L/min) 5 2 02/17/24 21:16 02/17/24 21:55 02/17/24 22:00 Temperature Temperature Source Pulse Rate 124 H 122 H 106 H Respiratory Rate 15 18 18 Blood Pressure 109/58 L 106/62 95/57 L Blood Pressure Mean 75 76 69 Pulse Ox 94 95 98 Oxygen Delivery Method Nasal Cannula Nasal Cannula Nasal Cannula Oxygen Flow Rate (L/min) 5 2 02/17/24 22:10 Temperature 98.6 F Temperature Source Pulse Rate 108 H Respiratory Rate 16 Blood Pressure 101/61 Blood Pressure Mean 74 Pulse Ox 95 Oxygen Delivery Method Oxygen Flow Rate (L/min) MDM MDM MDM Narrative Medical decision making narrative: HISTORY OF PRESENT ILLNESS: 43-year-old male presents with concern for severe blood loss. He states he has a chronic wound to his left lower abdomen that he states he got from dialysis after undergoing peritoneal dialysis for years. He currently undergoes dialysis through a right extremity AV fistula. He states tonight he stood up and started bleeding profusely. Per EMS patient had 2 large pools of blood. Patient noted he felt lightheaded dizzy and felt he was going to pass out. He notes he is on warfarin his last dose was yesterday night. REVIEW OF SYSTEMS: Pertinent positives: Lightheaded, dizzy, bleeding Pertinent negatives: Chest pain, shortness of PHYSICAL EXAM: Nursing triage notes reviewed, Vital signs reviewed Constitutional: please see mdm HENT: MMM Eyes: Pupils equal round and reactive to light, Extraocular muscles intact Neck: No stridor, no JVD, full neck ROM Lungs: Clear to auscultation, No wheezing or rales. No increased work of breathing, no conversational dyspnea, no accessory muscle use, no nasal flaring. No respiratory distress noted Heart: Regular rate and rhythm, No murmurs, No rubs and No gallops, 2+ distal pulses (radial, femoral, posterior tibial) in all extremities Abdomen: There are multiple areas of ulceration and 2 punctate areas with a stitch noted which are bleeding, oozing blood. : No CVAT Extremities: No edema, left leg fistula has a palpable thrill Neuro: No focal neurological deficits, cranial nerves II through XII intact, 5/5 strength in all extremities. Intact sensation to light touch in all extremities, 2+ reflexes bilateral patella tendons. Normal gait. No ataxia. Skin: Chronic appearing wounds noted to the lower left abdomen, there is a large ulceration approximate 6 x 6 cm, smaller areas of ulceration with punctate wounds. 1 wound has suture MEDICAL DECISION MAKING: Chief Complaint: Bleeding External records reviewed: Reviewed prior ER note. Patient was seen in the ER on 01/28/2024 for similar symptoms at this time a 4 Ethilon stitch was placed. Factors affecting care: ESRD, Atrial fib on warfarin Social determinants of health: none History obtained from others: EMS, Consults: General Surgery MDM Narrative: Patient was initially tachycardic, tachypneic, he was hypotensive. Initial concerns for hemorrhagic shock. Bleeding controlled initially with Surgicel and pressure. The seem to stem the bleeding. Given the patient hypotension was given 2 units of O- trauma blood. While central I was placed. Please see below procedure note. I considered the following differential diagnosis: Hemorrhagic shock, hypercoagulable state ALL IMAGES (IF OBTAINED) HAVE BEEN PERSONALLY REVIEWED AND INTERPRETED BY MYSELF. CBC with no leukocytosis, noted Worsening anemia with hemoglobin of 7.9 downtrending from 9.6 on prior study BMP with mild hyponatremia, no significant electrolyte imbalance, noted end-stage renal disease INR 2.4 (reversed with Vitamin K and Kcentra) Given patient's evidence of hemorrhagic shock, requiring large-volume blood transfusion as well as multiple surgical coordinator including potentially plastic surgery and general surgery. He needed a higher level of care. [facility] accepted the patient in transfer. He was transported via [facility] given the dire nature of his case. Patient's blood pressure did stabilize after the second unit of blood. Patient continued to complain of severe pain and given marginal blood pressures I opted to give fentanyl as a relatively hemodynamically stable narcotic. He was started on fentanyl drip at 50 mics per hour given the short half-life of fentanyl to provide longer-term pain relief without the side effect of hypotension Procedure: Central line placement. Indication: Venous Access Consent: verbal. Risks of bleeding, infection, and pneumothorax were explained. A time out was completed. Maximal sterile barrier technique was used including cap, gown, sterile gloves, large sheet, hand washing and chlorhexidine prep. Anesthesia: The area anesthetized with 1% lidocaine. Initial attempt at right IJ and left IJ failed secondary to poor vascular protoplasm Procedure: The left femoral vein vein was punctured with a 19 gauge finder needle, then a wire introducer was placed, a 7 Swedish triple lumen catheter was placed using Seldinger technique. There were no complications. Blood return was low pressure and non-pulsatile dark blood. Line secured in place with suture, and a sterile bio-occlusive dressing was applied. Patient tolerated procedure well. The procedure was performed by Miki Crockett DO The patient and/or family, caregivers express understanding. The patient and/or family, caregivers agrees with the plan. Shared decision making: I will have a discussion with the patient and or visitors regarding risk/benefits of further testing or admission. They will be made aware of of the risk/benefits inherent in this decision they will be given the opportunity to voice understanding. Total critical care time today provided was at least 60 minutes. This excludes separately billable procedures. Critical care time (if documented) is secondary to the patient having high probability of clinically significant/life threatening deterioration in the patient's condition which required my urgent intervention. Impression: 1. Hemorrhagic shock 2. History of end-stage renal disease 3. History of anticoagulation Dispo: Transfer to [facility] for definitive care This note was generated with [employer] dictation software. It may contain incorrect words, spelling, and punctuation that were not noted in review of the chart prior to signing. Lab Data Labs: Laboratory Results - last 24 hr 02/17/24 02/17/24 20:15 20:15 WBC 9.8 RBC 2.96 L Hgb 7.9 L Hct 28.3 L MCV 95.6 H MCH 26.7 L MCHC 27.9 L RDW Std Deviation 66.7 H RDW Coeff of Lance 19.5 H Plt Count 429 MPV 10.0 Immature Gran % (Auto) 0.800 Neut % (Auto) 57.0 Lymph % (Auto) 27.9 [place] % (Auto) 12.7 H Eos % (Auto) 1.3 Baso % (Auto) 0.3 Absolute Neuts (auto) 5.6 Absolute Lymphs (auto) 2.75 Nucleated RBC % 0.2 Differential Comment SCANNED Anisocytosis 1+ PT 26.2 H INR 2.4 Sodium 134 L Potassium 4.0 Chloride 95 L Carbon Dioxide 25.0 Anion Gap 14 BUN 29 H Creatinine 8.61 H* Estim Creat Clear Calc 14.95 Est GFR (MDRD) Af Amer 9 L Est GFR (MDRD) Non-Af 7 L BUN/Creatinine Ratio 3.4 L Glucose 148 H Calcium 9.4 Troponin I High Sens 28 Blood Type B POSITIVE Antibody Screen NEGATIVE Crossmatch See Detail See Detail Radiography Diagnostic Testing: Clinical Impression(s) from Imaging Studies Chest X-Ray 02/17/24 21:31 IMPRESSION: 1. No acute intrathoracic abnormality. Postoperative changes. Scoliosis. 2. Improved appearance of the glenohumeral joints, this may be projectional. Electronically Signed: Carol Spivey MD at 22:15 EDT , Discharge Plan Triage Chief Complaint: Wound ED Provider: Miki Crockett Dx/Rx/DC Orders Prescriptions: No Action aspirin [Adult Aspirin Regimen] 81 mg tablet,delayed release (DR/EC) 81 mg PO DAILY midodrine 10 mg tablet 10 mg PO TID sevelamer carbonate 800 mg tablet 800 mg PO TID Patient Comments: TAKE 3 TABLETS BY MOUTH THREE TIMES DAILY WITH MEALS Velphoro 500 mg tablet,chewable 1,500 mg PO TIDCM Patient Comments: CRUSH OR CHEW AND SWALLOW 3 TABLETS 3 TIMES A DAY WITH MEALS warfarin 3 mg tablet 1.5 mg PO DAILY Protocol: Dose Management Condition: Friday Dose/Route: 0 mg Instruction: 0 tablets Condition: Friday Dose/Route: 1.5 mg Instruction: 0.5 x 3 mg tablets Condition: Friday Dose/Route: 1.5 mg Instruction: 0.5 x 3 mg tablets Condition: Friday Dose/Route: 1.5 mg Instruction: 0.5 x 3 mg tablets Condition: Dose/Route: 1.5 mg Instruction: 0.5 x 3 mg tablets Condition: Friday Dose/Route: 0 mg Instruction: 0 tablets Condition: Friday Dose/Route: 0 mg Instruction: 0 tablets Protocol Text: Adjustment Start Date: Friday01/30/24 INR Value: 1.5 INR Date: 01/28/24 Recheck Date: 02/02/24 Patient Comments: Take 1 tablet by mouth daily as directed. trazodone 100 mg tablet 100 mg PO .hs Patient Comments: Take 1 tablet by mouth daily at bedtime. oxycodone 5 mg Tablet 5 - 10 mg PO Q6H PRN PRN (Reason: Pain Score 6-10) 7 Days Qty: 42 0RF (DME) BP monitor large cuff See Rx Instructions .Route .MEDSUPPLY Qty: 1 0RF Rx Instructions: As directed Primary Care Provider: Barb Carrillo Referrals: Barb Carrillo, [facility] [Primary Care Provider] - Print Language: Croatian
--- NOTE | 2024-02-17 21:31 | RAD_ITS ---
EXAM: XR CHEST, 1 VIEW CLINICAL INDICATION: central line TECHNIQUE: Frontal view of the chest. COMPARISON: May 17, 2022 FINDINGS: LUNGS AND PLEURAL SPACES: Unremarkable. No consolidation or edema. No pneumothorax. No effusion. HEART: Aortic valve prosthesis and aortic appendage clip are again noted. Normal heart size. MEDIASTINUM: Central airways and mediastinal contour are unremarkable. BONES/JOINTS: Worsening degenerative change of the left shoulder with mildly more rounded but mildly more appropriately and superiorly humeral head on this projection. The previously seen apparently inferiorly subluxed or dislocated right humeral head now also appears adequately positioned. Similar mild-moderate dextroscoliosis of mid to lower thoracic spine. Similar median sternotomy wires. No acute fracture. SOFT TISSUES: Unremarkable. RAD/CXR for Line Placement IMPRESSION: 1. No acute intrathoracic abnormality. Postoperative changes. Scoliosis. 2. Improved appearance of the glenohumeral joints, this may be projectional. Electronically Signed: Carol Spivey MD at 22:15 EDT ,
[2024-02-17] MEDS: Morphine 4 MG/ML Syringe IV (21:41)
[2024-02-17 21:43] LABS: International Normalized Ratio 2.4; Prothrombin Time (Protime)PT. 26.2 SECONDS (11.7-14.9)
[2024-02-17] MEDS: Phytonadione (Vit K) 10 MG in 0.9% Normal Saline (50mL Bag) 50 ML 150 MG IV (21:51)
[2024-02-17] MEDS: fentaNYL drip 100 ML 5 MCG CONT INF (21:55)
[2024-02-17] MEDS: HUM PROTHROMBIN CPLX(PCC)-LANS 2,700 UNIT in Viaflex Bag 1 BAG 500 UNIT IV (22:27)
== END 2024-02-17 22:42 | disposition short-term general hospital (02) ==
LOC: ED 22:20
PROVIDERS: Emergency Provider Emergency Medicine; PCP Nurse Practitioner Family; Visit Provider Emergency Medicine
DX: R57.8 Other shock (principal); I12.0 Hypertensive chronic kidney disease with stage 5 chronic kidney disease or end stage renal disease; N18.6 End stage renal disease; I48.91 Unspecified atrial fibrillation; F12.90 Cannabis use, unspecified, uncomplicated; Z99.2 Dependence on renal dialysis; I25.2 Old myocardial infarction; G47.33 Obstructive sleep apnea (adult) (pediatric); Z86.16 Personal history of COVID-19; Z86.711 Personal history of pulmonary embolism; Z86.718 Personal history of other venous thrombosis and embolism; Z79.01 Long term (current) use of 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s
CPT/HCPCS: 36556; 71045; 80048; 84484; 85025; 85610; 86850; 86900; 86901; 86920; 86922; 93005; 96365; 96375; 99285; J7030; J7040; P9016; A4216; C1751; C9159; J3490

== ENCOUNTER 2024-04-14 11:43 | Outpatient (RCR) | payer MEDICARE, MEDICAID, SELFPAY ==
[2024-04-14 12:40] LABS: International Normalized Ratio 2.5; Prothrombin Time (Protime)PT. 26.5 SECONDS (11.7-14.9)
== END 2024-04-28 18:00 | disposition home or self-care (01) ==
LOC: LAB 11:43
PROVIDERS: Physician Assistant Medical; Referring Provider Internal Medicine Cardiovascular Disease; Visit Provider Internal Medicine Cardiovascular Disease
DX: I48.0 Paroxysmal atrial fibrillation (principal)
CPT/HCPCS: 36415; 85610

== ENCOUNTER 2024-06-19 17:09 | Emergency (ER) | payer MEDICARE, SELFPAY ==
[2024-06-19 17:11] VITALS: BP 158/120; PULSE 110; RESP 18; TEMP 36.6; O2SAT 97
[2024-06-19 17:23] VITALS: BMI 36.8
[2024-06-19 17:36] LABS: Absolute Lymphocyte Count 0.78 X10^3/uL (0.83-4.51); Absolute Neutrophil Count 2.6 X10^3/uL (2.0-7.7); Basophil# 0.04 X10^3/uL; Basophil% 0.9 % (0-1); Eosinophil# 0.18 X10^3/uL; Eosinophils% 4.1 % (0-5); Hematocrit 45.2 % (40-54); Hemoglobin 13.8 g/dL (13.0-16.5); Lymphocyte # 0.78 X10^3/ul (0.83-4.51); Lymphocyte % 17.8 % (19-41); Mean Corp Hgb Conc 30.5 g/dL (32-36); Mean Corpuscular Hgb 28.9 pg (27.0-32.0); Mean Corpuscular Volume 94.6 fL (80-94); Mean Platelet Vol. 9.9 fl (6.2-12.0); Monocyte% 18.3 % (0-10); NRBC Flagged by Analyzer 0 % (0-5); Neutrophil # 2.56 X10^3/uL (2.7-7.7); Neutrophil % 58.7 % (47-70); Platelet Count 174 K/mm3 (150-450); RBC Distribution Width CV 17.3 % (11.6-14.6); RBC Distribution Width SD 60.5 fl (35.1-43.9); Red Blood Count 4.78 M/mm3 (4.6-6.2); White Blood Count 4.4 K/mm3 (4.4-11.0)
--- NOTE | 2024-06-19 18:15 | EDS_ITS ---
HPI History of Present Illness Chief Complaint: Chest Other Detail of Chief Complaint: Tenderness, mass left areola Onset/Context/Timing Onset: Month(s) (2 months) Context: - (Does not recall) Timing: Continuous Quality: Sensitivity, burning sensation and mass left areola Location: Left areola Current Severity: Mild Maximum Severity: Moderate Worsened by: Clothing rubbing against his chest and touch Relieved by: Nothing trusting his chest Associated Symptoms Associated Symptoms: None Narrative Narrative: Patient is a 44-year-old male. He is on hemodialysis. He has history of significant varices of his chest wall and abdominal wall. Patient presents because of mass tenderness of the left areolar region. He denies drainage from his breast. He denies redness. He denies fever, chills night sweats. He denies shortness of breath or difficulty breathing. There is no history of trauma. He has no other complaints. 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 Mitral valve annular calcification Paroxysmal atrial flutter Central retinal artery occlusion of left eye (10/09/20) History of non-ST elevation myocardial infarction (NSTEMI) (11/08/19) 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 History of bacterial endocarditis Mechanical complication of arteriovenous fistula surgically created Obstructive sleep apnea Non compliance w medication regimen Nonrheumatic mitral valve stenosis with insufficiency 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) Atrial flutter with rapid ventricular response (07/2020) Essential (primary) hypertension History of venous thromboembolism History of pulmonary embolus (PE) Bilateral carotid artery stenosis Paroxysmal atrial fibrillation (06/10/20) Unspecified symptoms and signs involving cognitive functions and awareness (04/05/20) 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) Expressive aphasia (04/05/20) ESRD on hemodialysis Dialysis patient Chronic kidney disease-mineral and bone disorder Chronic pelvic pain in male Pelvic mass Hematuria History of blood clots Hearing loss 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 due to renal insufficiency Morbidly obese Anemia of chronic disorder Home Medications ?Medication ?Instructions ?Recorded ?Last Taken ?Type BP monitor #1 ea 07/17/21 Unknown Rx aspirin 81 mg tablet,delayed 81 mg PO DAILY 10/29/21 Unknown History release (Adult Aspirin Regimen) midodrine 10 mg tablet 10 mg PO TID 10/29/21 Unknown History sevelamer carbonate 800 mg tablet 800 mg PO TID 06/25/22 Unknown History sucroferric oxyhydroxide 500 mg 1,500 mg PO TIDCM 11/11/23 Unknown History chewable tablet (Velphoro) trazodone 100 mg tablet 100 mg PO .hs sleep 11/12/23 11/12/23 History oxycodone 5 mg tablet 5 - 10 mg (1 - 2 x 5 mg) PO Q6H 11/14/23 Unknown Rx PRN PRN Pain Score 6-10 7 days #42 tabs warfarin 5 mg tablet 5 mg PO DAILY #90 tabs 05/07/24 Unknown Rx Allergy/AdvReac Type Severity Reaction Status Date / Time gabapentin Allergy Other Verified 06/19/24 17:11 Family History Other Adopted Surgical History Hx of mitral valve replacement History of angioplasty of peripheral vessel (08/28/21) History of tooth extraction, class IV edentulism (09/11/21) History of right and left heart catheterization (08/16/21) History of mitral valve replacement with bioprosthetic valve (08/21/21) Mechanical complication of dialysis catheter History of herniorrhaphy Status post creation of arteriovenous fistula History of cardioversion (12/02/18) History of repair of congenital cleft palate History of left heart catheterization (09/17/18) history of cather replacement Social History household members: none Smoking Status: Never smoker alcohol intake: never substance use type: marijuana what type of physical activity do you participate in: none ROS ROS ED Constitutional Constitutional ED: Denies chills, fever(s) or subjective Eyes Eyes: Denies blurry vision or change in vision Cardiovascular Cardiovascular: Reports chest pain; Denies palpitations or racing heartbeat Respiratory/Chest Respiratory/Chest: Denies cough, dyspnea or dyspnea on exertion Gastrointestinal Gastrointestinal: Denies abdominal pain, nausea or vomiting Integumentary Denies rash Neurologic Neurologic: Denies paresthesias or weakness Hematologic/Lymphatic Hematologic/Lymphatic: Reports easy bleeding; Denies easy bruising EXAM Physical Exam Const Vital Signs: 06/19/24 17:11 Temperature 98 F Temperature Source Oral Pulse Rate 110 H Respiratory Rate 18 Blood Pressure 158/120 H Blood Pressure Mean 132 Pulse Ox 97 Oxygen Delivery Method Room Air Positive well nourished and well developed General Appearance ED: well developed and NAD HEENT Reports moist mucous membranes HEENT Narrative: Patient has poor dentition. Nares patent. No drainage. Posterior pharynx is normal. Ears normal. Eyes PERRL and EOMs intact bilaterally General Eye ED: Yes pale conjunctiva; Negative for scleral icterus Neck no lymphadenopathy, supple and no JVD Chest Wall Negative for inspection of chest normal or palpation of chest normal Chest Narrative: Patient has numerous varicose veins chest wall and abdominal wall. There is tenderness left areolar region. Patient has in my opinion phlebitis involving these varicose veins left chest wall. There is no erythema, warmth, induration or lymphangitis. There is no axillary lymphadenopathy. Resp normal respiratory effort and clear to auscultation bilaterally Cardio regular rate, regular rhythm, S1 normal heart sound, S2 normal heart sound and no murmurs GI non-tender, non-distended and no masses; Negative for hepatosplenomegaly GI Narrative: Varicose veins. Wound left lower quadrant. Auscultation: hypoactive bowel sounds Neuro oriented x3 and CN's II-XII intact bilaterally Sensorium / Orientation: alert Psych mental status grossly normal Skin Skin Narrative: Previously described MDM MDM MDM Narrative Medical decision making narrative: Patient will need an outpatient ultrasound patient this has been present for 2 months. Suspect patient has superficial phlebitis of the varicose veins. Blood work was obtained to assess white count differential. Lab Data Attestation: I reviewed the patient's lab results. Lab results narrative: White count is unremarkable. Labs: Laboratory Results - last 24 hr 06/19/24 17:32 WBC 4.4 RBC 4.78 Hgb 13.8 Hct 45.2 MCV 94.6 H MCH 28.9 MCHC 30.5 L RDW Std Deviation 60.5 H RDW Coeff of Lance 17.3 H Plt Count 174 MPV 9.9 Immature Gran % (Auto) 0.200 Neut % (Auto) 58.7 Lymph % (Auto) 17.8 L [place] % (Auto) 18.3 H Eos % (Auto) 4.1 Baso % (Auto) 0.9 Absolute Neuts (auto) 2.6 Absolute Lymphs (auto) 0.78 L Nucleated RBC % 0 Discharge Plan Triage Chief Complaint: Chest Other Other Complaint: Rash ED Provider: Dimitri Swan Dx/Rx/DC Orders Clinical Impression: Thrombophlebitis, Abdominal varicosities, Anemia of chronic disorder, retirement current use of 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, ESRD (end stage renal disease), Dialysis AV fistula malfunction Instructions: ED Thrombophlebitis, Superficial Prescriptions: No Action aspirin [Adult Aspirin Regimen] 81 mg tablet,delayed release (DR/EC) 81 mg PO DAILY midodrine 10 mg tablet 10 mg PO TID sevelamer carbonate 800 mg tablet 800 mg PO TID Patient Comments: TAKE 3 TABLETS BY MOUTH THREE TIMES DAILY WITH MEALS Velphoro 500 mg tablet,chewable 1,500 mg PO TIDCM Patient Comments: CRUSH OR CHEW AND SWALLOW 3 TABLETS 3 TIMES A DAY WITH MEALS trazodone 100 mg tablet 100 mg PO .hs Patient Comments: Take 1 tablet by mouth daily at bedtime. oxycodone 5 mg Tablet 5 - 10 mg PO Q6H PRN PRN (Reason: Pain Score 6-10) 7 Days Qty: 42 0RF (DME) BP monitor large cuff See Rx Instructions .Route .MEDSUPPLY Qty: 1 0RF Rx Instructions: As directed warfarin 5 mg tablet 5 mg PO DAILY Qty: 90 3RF Protocol: Dose Management Condition: Friday Dose/Route: 5 mg Instruction: 1 x 5 mg tablet Condition: Friday Dose/Route: 5 mg Instruction: 1 x 5 mg tablet Condition: Friday Dose/Route: 5 mg Instruction: 1 x 5 mg tablet Condition: Friday Dose/Route: 5 mg Instruction: 1 x 5 mg tablet Condition: Dose/Route: 2.5 mg Instruction: 0.5 x 5 mg tablets Condition: Friday Dose/Route: 5 mg Instruction: 1 x 5 mg tablet Condition: Friday Dose/Route: 5 mg Instruction: 1 x 5 mg tablet Protocol Text: Adjustment Start Date: 05/20/24 INR Value: 3.6 INR Date: 05/20/24 Recheck Date: 05/27/24 Primary Care Provider: Care Physician,No Primary Referrals: Care Physician,No Primary [Primary Care Provider] - Activity Restrictions/Additional Instructions: 1. Take an aspirin a day 2. You will need to see your doctor for an ultrasound of your left breast Print Language: Macedonian Disposition Disposition: Home, Self Care
[2024-06-19 19:44] VITALS: BP 118/80; PULSE 93; RESP 20; TEMP 36.4; O2SAT 97
== END 2024-06-19 19:45 | disposition home or self-care (01) ==
PROVIDERS: Emergency Provider Emergency Medicine; Visit Provider Emergency Medicine
DX: I80.8 Phlebitis and thrombophlebitis of other sites (principal); I12.0 Hypertensive chronic kidney disease with stage 5 chronic kidney disease or end stage renal disease; N18.6 End stage renal disease; I48.0 Paroxysmal atrial fibrillation; I48.92 Unspecified atrial flutter; E66.01 Morbid (severe) obesity due to excess calories; I86.4 Gastric varices; T82.510A Breakdown (mechanical) of surgically created arteriovenous fistula, initial encounter; I25.2 Old myocardial infarction; D63.8 Anemia in other chronic diseases classified elsewhere; I34.2 Nonrheumatic mitral (valve) stenosis; G47.33 Obstructive sleep apnea (adult) (pediatric); Z99.2 Dependence on renal dialysis; Z95.2 Presence of prosthetic heart valve; Z88.5 Allergy status to narcotic agent; Z86.79 Personal history of other diseases of the circulatory system; Z98.62 Peripheral vascular angioplasty status; Z86.16 Personal history of COVID-19; Z79.01 Long term (current) use of 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s; Z79.82 Long term (current) use of aspirin; Z86.711 Personal history of pulmonary embolism; Z79.899 Other long term (current) drug therapy
CPT/HCPCS: 85025; 99283

== ENCOUNTER 2024-08-05 15:05 | Outpatient (RCR) | payer MEDICARE, SELFPAY ==
[2024-08-05 16:24] LABS: International Normalized Ratio 2.6; Prothrombin Time (Protime)PT. 27.9 SECONDS (11.7-14.9)
== END 2024-08-28 18:00 | disposition home or self-care (01) ==
LOC: LAB 15:05
PROVIDERS: Referring Provider Internal Medicine Cardiovascular Disease; Visit Provider Internal Medicine Cardiovascular Disease
DX: I48.0 Paroxysmal atrial fibrillation
CPT/HCPCS: 36415; 85610

== ENCOUNTER 2024-09-03 11:00 | Emergency (ER) | payer MEDICARE, SELFPAY ==
[2024-09-03 11:11] VITALS: PULSE 120; TEMP 36.6; O2SAT 100; BMI 39.4
--- NOTE | 2024-09-03 11:14 | EX.ED.DYSGE1 ---
HPI History of Present Illness Chief Complaint: Wound Narrative Narrative: Patient is a 44-year-old male who is presenting with acute bleeding from a open sore to his left chest that has continuous venous bleeding. Patient has multiple chronic wounds. Patient has had this happen to him before where his wounds will start bleeding and is difficult to control. Patient stated that he believes that his wound opened up and was bleeding to the nighttime, patient woke up with blood in his sheets in his bed. This is to the left upper chest. Patient 72 woke up this morning, the bleeding had stopped, patient's had him cleaned out. Patient is on Coumadin. When he started walking around home today, this left upper anterior chest chronic wound started continuously bleeding again with continuous venous bleeding, not pulsatile. EMS staff was called. Patient was brought in by EMS. Patient has multiple soaked blood dressings on his chest from attempts to stop the bleeding. Bleeding does stop with controlled firm pressure. Vital signs are not done yet. Patient is on aspirin and Coumadin. Patient goes to dialysis on Friday, Friday, Friday. Patient is due to have dialysis today at 1:00. 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 Mitral valve annular calcification Central retinal artery occlusion of left eye (10/09/20) History of non-ST elevation myocardial infarction (NSTEMI) (11/08/19) 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 History of bacterial endocarditis Mechanical complication of arteriovenous fistula surgically created Obstructive sleep apnea Non compliance w medication regimen Nonrheumatic mitral valve stenosis with insufficiency 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) Atrial flutter with rapid ventricular response (07/2020) Essential (primary) hypertension History of venous thromboembolism History of pulmonary embolus (PE) Bilateral carotid artery stenosis Paroxysmal atrial fibrillation (09/12/20) Unspecified symptoms and signs involving cognitive functions and awareness (04/05/20) 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) Expressive aphasia (04/05/20) ESRD on hemodialysis Dialysis patient Chronic kidney disease-mineral and bone disorder Chronic pelvic pain in male Pelvic mass Hematuria History of blood clots Hearing loss 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 due to renal insufficiency Morbidly obese Home Medications ?Medication ?Instructions ?Recorded ?Last Taken ?Type BP monitor #1 ea 07/17/21 Unknown Rx aspirin 81 mg tablet,delayed 81 mg PO DAILY 10/29/21 Unknown History release (Adult Aspirin Regimen) midodrine 10 mg tablet 10 mg PO TID 10/29/21 Unknown History sucroferric oxyhydroxide 500 mg 1,500 mg PO TIDCM 11/11/23 Unknown History chewable tablet (Velphoro) oxycodone 5 mg tablet 5 - 10 mg (1 - 2 x 5 mg) PO Q6H 11/14/23 Unknown Rx PRN PRN Pain Score 6-10 7 days #42 tabs warfarin 5 mg tablet 5 mg PO DAILY #90 tabs 05/07/24 Unknown Rx cinacalcet 60 mg tablet 90 mg PO DAILY 07/30/24 Unknown History levothyroxine 25 mcg tablet 25 mcg PO DAILY disorder of 07/30/24 Unknown History thyroid gland vitamin B complex-vitamin C-folic 1 tab PO DAILY 07/30/24 Unknown History acid 0.8 mg tablet (Juju-Tashi) warfarin 3 mg tablet 6 mg PO DAILY 07/30/24 Unknown History Allergy/AdvReac Type Severity Reaction Status Date / Time trazodone Allergy Severe Jittery/Sha Verified 08/11/24 09:24 ky gabapentin Allergy Other Verified 06/19/24 17:11 Family History Other Adopted Surgical History S/P PICC central line placement (06/15/24) Hx of mitral valve replacement History of angioplasty of peripheral vessel (08/28/21) History of tooth extraction, class IV edentulism (09/11/21) History of right and left heart catheterization (08/16/21) History of mitral valve replacement with bioprosthetic valve (11/23/21) Mechanical complication of dialysis catheter History of herniorrhaphy Status post creation of arteriovenous fistula History of cardioversion (12/02/18) History of repair of congenital cleft palate History of left heart catheterization (09/17/18) history of cather replacement Social History household members: none Smoking Status: Never smoker alcohol intake: never substance use type: marijuana what type of physical activity do you participate in: none ROS ROS ED ROS Narrative REVIEW OF SYSTEMS: Unless otherwise stated in this report the patient's positive and negative responses for review of systems for constitutional, eyes, ENT, cardiovascular, respiratory, gastrointestinal, neurological, , musculoskeletal, and integument systems and related systems to the presenting problem are either stated in the history of present illness or were not pertinent or were negative for the symptoms and/or complaints related to the presenting medical problem. EXAM Physical Exam Narrative Exam Narrative: Vital signs reviewed and patient is not hypoxic. General: The patient appears well and in no apparent distress. Patient is resting comfortably on cart. Not toxic, lethargic, or listless. Patient has 5-6 soaked ABD pads in his chest and abdomen that were removed, skin was analyzed, there is no other signs of bleeding besides a stage II ulceration to his left anterior chest. Skin: Warm, dry, no pallor noted. There is no rash noted. Patient has several stage I and stage II ulcerations diffusely that are chronic. Head: Normocephalic, atraumatic Eye: Normal conjunctiva, no drainage, EOMI. PERRL. Ears, Nose, Mouth, and Throat: oral mucosa is moist. Nares patent. Mouth without vesicles. Cardiovascular: Regular Rate and Rhythm, no murmurs, gallops, or rubs. Patient has a right anterior chest dialysis cath, the area around this is clean, dry, intact. Patient has stage II ulceration to the left anterior chest, midclavicular line, over his left pectoralis major that has continuous venous colored bleeding if pressure is not directly applied, it is not pulsatile. Respiratory: Patient is in no distress, no accessory muscle use, lungs are clear to auscultation, no wheezing, rales or rhonchi Back: non-tender, no CVA tenderness bilaterally to percussion. NO CTLS midline or paraspinal tenderness to palpation. GI: Soft, obese, no tenderness to palpation, no masses appreciated. No rebound, guarding, or rigidity noted. Musculoskeletal: The patient has full range of motion of all extremities and joints with no difficulty. Patient has no motor, no sensory deficits. Neurological: A&O x4, normal speech, no focal neurological deficits. Psychiatric: Cooperative Const Vital Signs: 09/03/24 11:11 09/03/24 12:02 09/03/24 13:00 Temperature 97.9 F Temperature Source Oral Pulse Rate 120 H 98 Respiratory Rate 18 Blood Pressure 118/86 H 112/68 Blood Pressure Mean 96 82 Pulse Ox 100 95 Oxygen Delivery Method Room Air MDM MDM MDM Narrative Medical decision making narrative: Procedure note: With firm pressure for 25 minutes, patient had Surgicel and Telfa placed above the continuous venous bleeding ulceration above the left chest. Firm pressure was held the entire time, Telfa was removed, Surgicel remained in place. Bleeding has stopped. Patient Toller procedure with mild pain in the difficulty. Patient's H&H is 10/34. There is multiple attempts done by lab staff and nursing staff trying to obtain blood work on this patient. After additional attempts at receiving blood work through process INR, patient's INR is The bleeding has stopped with forceful pressure for 25 minutes with Surgicel and Telfa pad. Telfa pad was removed and no bleeding has reoccurred. Patient tolerated time and pressure with some mild pain. Patient was given Tylenol. Patient is been eating and drinking no difficulty. Patient has dialysis this afternoon. Patient will be discharged that he can go to dialysis. Patient vital signs have significantly improved with no management except stopping the bleeding and not holding firm pressure for 25 minutes. 1350 patient's INR is 4. Hemoglobin is 10. Patient will be discharged to go to dialysis. Education wound care was done at bedside and on discharge paperwork. Multiple attempts by nursing staff and lobotomy team were done for lab draws. Lab Data Attestation: I reviewed the patient's lab results. Labs: Laboratory Results - last 24 hr 09/03/24 09/03/24 12:30 13:24 WBC 8.3 RBC 3.62 L Hgb 10.1 L Hct 34.0 L MCV 93.9 MCH 27.9 MCHC 29.7 L RDW Std Deviation 65.0 H RDW Coeff of Lance 19.2 H Plt Count 270 MPV 10.3 Immature Gran % (Auto) 0.600 Neut % (Auto) 70.1 H Lymph % (Auto) 11.2 L Roberts % (Auto) 13.5 H Eos % (Auto) 3.8 Baso % (Auto) 0.8 Absolute Neuts (auto) 5.8 Absolute Lymphs (auto) 0.92 Nucleated RBC % 0 PT 38.6 H INR 4.0 H* Discharge Plan Triage Chief Complaint: Wound ED Provider: Harpreet Elias Dx/Rx/DC Orders Clinical Impression: Bleeding ulcer Instructions: ED Pressure Injury Prescriptions: No Action aspirin [Adult Aspirin Regimen] 81 mg tablet,delayed release (DR/EC) 81 mg PO DAILY midodrine 10 mg tablet 10 mg PO TID levothyroxine 25 mcg tablet 25 mcg PO DAILY warfarin 3 mg tablet 6 mg PO DAILY Protocol: Dose Management Condition: Friday Dose/Route: 5 mg Instruction: 1 x 5 mg tablet Condition: Friday Dose/Route: 2.5 mg Instruction: 0.5 x 5 mg tablets Condition: Friday Dose/Route: 2.5 mg Instruction: 0.5 x 5 mg tablets Condition: Friday Dose/Route: 2.5 mg Instruction: 0.5 x 5 mg tablets Condition: Dose/Route: 2.5 mg Instruction: 0.5 x 5 mg tablets Condition: Friday Dose/Route: 5 mg Instruction: 1 x 5 mg tablet Condition: Friday Dose/Route: 5 mg Instruction: 1 x 5 mg tablet Protocol Text: Adjustment Start Date: 08/05/24 INR Value: 2.6 INR Date: 08/05/24 Recheck Date: 08/26/24 cinacalcet 60 mg tablet 90 mg PO DAILY Juju-Tashi 0.8 mg tablet 1 tab PO DAILY Velphoro 500 mg tablet,chewable 1,500 mg PO TIDCM Patient Comments: CRUSH OR CHEW AND SWALLOW 3 TABLETS 3 TIMES A DAY WITH MEALS oxycodone 5 mg Tablet 5 - 10 mg PO Q6H PRN PRN (Reason: Pain Score 6-10) 7 Days Qty: 42 0RF (DME) BP monitor large cuff See Rx Instructions .Route .MEDSUPPLY Qty: 1 0RF Rx Instructions: As directed warfarin 5 mg tablet 5 mg PO DAILY Qty: 90 3RF Protocol: Dose Management Condition: Friday Dose/Route: 5 mg Instruction: 1 x 5 mg tablet Condition: Friday Dose/Route: 2.5 mg Instruction: 0.5 x 5 mg tablets Condition: Friday Dose/Route: 2.5 mg Instruction: 0.5 x 5 mg tablets Condition: Friday Dose/Route: 2.5 mg Instruction: 0.5 x 5 mg tablets Condition: Dose/Route: 2.5 mg Instruction: 0.5 x 5 mg tablets Condition: Friday Dose/Route: 5 mg Instruction: 1 x 5 mg tablet Condition: Friday Dose/Route: 5 mg Instruction: 1 x 5 mg tablet Protocol Text: Adjustment Start Date: 08/05/24 INR Value: 2.6 INR Date: 08/05/24 Recheck Date: 08/26/24 Primary Care Provider: Care Physician,Felicita Primary Referrals: Care Physician,No Primary [Primary Care Provider] - Activity Restrictions/Additional Instructions: Your hemoglobin levels are 10, your INR for your Coumadin is 4. Continue dosing regimen as recommended for your home medications and Coumadin; and follow-up with your Coumadin clinic or PCP who is managing your dosing for Coumadin and for any other further medication adjustments or changes as needed. Print Language: Argentine Disposition Disposition: Home, Self Care
[2024-09-03 12:02] VITALS: BP 118/86; PULSE 98; RESP 18; O2SAT 95
[2024-09-03 12:40] LABS: Absolute Lymphocyte Count 0.92 X10^3/uL (0.83-4.51); Absolute Neutrophil Count 5.8 X10^3/uL (2.0-7.7); Basophil# 0.07 X10^3/uL; Basophil% 0.8 % (0-1); Eosinophil# 0.31 X10^3/uL; Eosinophils% 3.8 % (0-5); Hemoglobin 10.1 g/dL (13.0-16.5); Lymphocyte # 0.92 X10^3/ul (0.83-4.51); Lymphocyte % 11.2 % (19-41); Mean Corp Hgb Conc 29.7 g/dL (32-36); Mean Corpuscular Hgb 27.9 pg (27.0-32.0); Mean Corpuscular Volume 93.9 fL (80-94); Mean Platelet Vol. 10.3 fl (6.2-12.0); Monocyte# 1.11 X10^3/uL; Monocyte% 13.5 % (0-10); NRBC Flagged by Analyzer 0 % (0-5); Neutrophil # 5.79 X10^3/uL (2.7-7.7); Neutrophil % 70.1 % (47-70); Platelet Count 270 K/mm3 (150-450); RBC Distribution Width CV 19.2 % (11.6-14.6); Red Blood Count 3.62 M/mm3 (4.6-6.2); White Blood Count 8.3 K/mm3 (4.4-11.0)
[2024-09-03 13:00] VITALS: BP 112/68
[2024-09-03] MEDS: Acetaminophen 325 MG Tablet 650 MG PO (13:36)
[2024-09-03 13:47] LABS: Prothrombin Time (Protime)PT. 38.6 SECONDS (11.7-14.9)
[2024-09-03 13:55] VITALS: BP 104/69; PULSE 84; RESP 16; TEMP 36.3; O2SAT 96
[2024-09-03 14:00] VITALS: BP 110/64; PULSE 99; RESP 18; O2SAT 99
== END 2024-09-03 14:37 | disposition home or self-care (01) ==
PROVIDERS: Emergency Provider Emergency Medicine; Visit Provider Emergency Medicine
DX: L98.499 Non-pressure chronic ulcer of skin of other sites with unspecified severity (principal); I12.0 Hypertensive chronic kidney disease with stage 5 chronic kidney disease or end stage renal disease; N18.6 End stage renal disease; I48.0 Paroxysmal atrial fibrillation; E66.01 Morbid (severe) obesity due to excess calories; I95.9 Hypotension, unspecified; G47.33 Obstructive sleep apnea (adult) (pediatric); D63.1 Anemia in chronic kidney disease; N25.81 Secondary hyperparathyroidism of renal origin; I25.2 Old myocardial infarction; I34.2 Nonrheumatic mitral (valve) stenosis; Z99.2 Dependence on renal dialysis; Z95.2 Presence of prosthetic heart valve; Z79.82 Long term (current) use of aspirin; Z79.01 Long term (current) use of 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s; Z86.718 Personal history of other venous thrombosis and embolism; Z86.711 Personal history of pulmonary embolism; Z91.199 Patient's noncompliance with other medical treatment and regimen due to unspecified reason; Z79.890 Hormone replacement therapy; Z79.899 Other long term (current) drug therapy
CPT/HCPCS: 85025; 85610; 99284

== ENCOUNTER 2024-09-13 20:41 | Emergency (ER) | payer MEDICARE, SELFPAY ==
[2024-09-13 20:42] VITALS: BP 107/64; PULSE 96; RESP 20; TEMP 36.3; O2SAT 98
[2024-09-13 23:50] VITALS: BMI 37.0
--- NOTE | 2024-09-13 23:55 | EDS_ITS ---
HPI History of Present Illness Chief Complaint: Back Informant: patient Narrative Narrative: Nontraumatic left low back pain rating down to his gluteal since yesterday. Denies any heavy lifting. Dialysis patient Friday has had dialysis today. He does not make any urine. Denies incontinence of stools. Took Tylenol with no relief. Edition reports chronic wounds to his left abdomen with dressing changes by his spouse. He is due to see wound care again on the . Denies fevers or chills.History of sciatica issues in the past is concerned of this. He is allergic to trazodone and gabapentin. 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) Anemia in chronic kidney disease Dyspnea Secondary renal hyperparathyroidism Abdominal wall cellulitis Thrombosis of kidney dialysis arteriovenous graft COVID-19 virus detected (10/02/21) Dental caries Dialysis AV fistula malfunction Postoperative complete heart block (08/21/21) Hypotension of hemodialysis Pain of right lower extremity Medication side effects Chronic ulcer of back Sepsis Non-healing non-surgical wound Daily headache nursing home current use of 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 Mitral valve annular calcification Central retinal artery occlusion of left eye (10/09/20) History of non-ST elevation myocardial infarction (NSTEMI) (11/08/19) 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 History of bacterial endocarditis Mechanical complication of arteriovenous fistula surgically created Obstructive sleep apnea Non compliance w medication regimen Nonrheumatic mitral valve stenosis with insufficiency 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) Atrial flutter with rapid ventricular response (07/2020) Essential (primary) hypertension History of venous thromboembolism History of pulmonary embolus (PE) Bilateral carotid artery stenosis Paroxysmal atrial fibrillation (06/10/20) Unspecified symptoms and signs involving cognitive functions and awareness (04/05/20) 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) Expressive aphasia (04/05/20) ESRD on hemodialysis Dialysis patient Chronic kidney disease-mineral and bone disorder Chronic pelvic pain in male Pelvic mass Hematuria History of blood clots Hearing loss 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 due to renal insufficiency Morbidly obese Home Medications ?Medication ?Instructions ?Recorded ?Last Taken ?Type BP monitor #1 ea 07/17/21 Unknown Rx aspirin 81 mg tablet,delayed 81 mg PO DAILY 10/29/21 Unknown History release (Adult Aspirin Regimen) midodrine 10 mg tablet 10 mg PO TID 10/29/21 Unknown History sucroferric oxyhydroxide 500 mg 1,500 mg PO TIDCM 11/11/23 Unknown History chewable tablet (Velphoro) oxycodone 5 mg tablet 5 - 10 mg (1 - 2 x 5 mg) PO Q6H 11/14/23 Unknown Rx PRN PRN Pain Score 6-10 7 days #42 tabs warfarin 5 mg tablet 5 mg PO DAILY #90 tabs 05/07/24 Unknown Rx cinacalcet 60 mg tablet 90 mg PO DAILY 07/30/24 Unknown History levothyroxine 25 mcg tablet 25 mcg PO DAILY disorder of 07/30/24 Unknown History thyroid gland vitamin B complex-vitamin C-folic 1 tab PO DAILY 07/30/24 Unknown History acid 0.8 mg tablet (Juju-Tashi) warfarin 3 mg tablet 6 mg PO DAILY 07/30/24 Unknown History oxycodone-acetaminophen 5 mg-325 1 tab PO Q6H PRN PRN Pain 3 days 09/14/24 Unknown Rx mg tablet #12 TABLETS Allergy/AdvReac Type Severity Reaction Status Date / Time trazodone Allergy Severe Jittery/Sha Verified 08/11/24 09:24 ky gabapentin Allergy Other Verified 06/19/24 17:11 Family History Other Adopted Surgical History S/P PICC central line placement (06/15/24) Hx of mitral valve replacement History of angioplasty of peripheral vessel (08/28/21) History of tooth extraction, class IV edentulism (09/11/21) History of right and left heart catheterization (08/16/21) History of mitral valve replacement with bioprosthetic valve (08/21/21) Mechanical complication of dialysis catheter History of herniorrhaphy Status post creation of arteriovenous fistula History of cardioversion (12/02/18) History of repair of congenital cleft palate History of left heart catheterization (09/17/18) history of cather replacement Social History household members: none Smoking Status: Never smoker alcohol intake: never substance use type: marijuana what type of physical activity do you participate in: none ROS ROS ED Constitutional Constitutional ED: Denies chills, fever(s) or sweats Eyes Eyes: Denies change in vision ENT ENT ED: Denies dysphagia or sore throat Cardiovascular Cardiovascular: Denies chest pain, leg edema, palpitations or racing heartbeat Respiratory/Chest Respiratory/Chest: Denies cough, dyspnea or dyspnea on exertion Gastrointestinal Gastrointestinal: Denies abdominal pain, diarrhea, nausea or vomiting Genitourinary Genitourinary ED: Reports other Details: anuric Musculoskeletal Musculoskeletal: Reports back pain; Denies extremity pain or neck pain Integumentary Reports wounds; Denies rash Neurologic Neurologic: Denies headache(s), paresthesias or weakness EXAM Physical Exam Const Vital Signs: 09/13/24 20:42 09/14/24 00:42 09/14/24 03:04 Temperature 97.4 F L 97.4 F L Temperature Source Temporal Pulse Rate 96 88 88 Respiratory Rate 20 H 18 15 Blood Pressure 107/64 Blood Pressure Mean 78 Pulse Ox 98 94 95 Oxygen Delivery Method Room Air Room Air Positive well nourished and well developed General Appearance ED: well developed and NAD HEENT Reports moist mucous membranes normocephalic and atraumatic Eyes General Eye ED: Yes normal appearance of both eyes Neck no lymphadenopathy and supple General: Negative for tenderness Chest Wall Chest: Negative for tenderness Resp normal respiratory effort and normal air movement Effort and Inspection: symmetric chest movement; Negative for respiratory distress Cardio regular rate, regular rhythm and no murmurs Peripheral Pulses: pulses 2+ throughout GI normal to inspection, nondistended, normoactive bowel sounds GI Narrative: There are dressings left abdomen left flank which patient did not want me to remove. Chronic issues. Palpation: Negative for guarding or rebound tenderness present Back/Spine no CVA tenderness and no thoracic nor lumbar tenderness Back/Spine Narrative: No midline tenderness. No step-offs. Straight leg test negative. Extremity normal to inspection General Extremety ED: Negative for edema or tenderness General Extremity: Negative for edema Neuro oriented x3 and no sensory deficits noted Sensorium / Orientation: awake and alert Skin no rashes or lesions noted and no wounds MDM MDM MDM Narrative Medical decision making narrative: Interventions / MDM: Differential diagnosis: Sciatica, end-stage renal disease on hemodialysis Diagnosis considered but do not suspect: No cauda equina symptoms My EKG interpretation: N/A Imaging independently reviewed and interpreted by myself: 3 view lumbar x-ray: Lytic lesion spinal processes L4 similar previous. Stable. Also read by radiology. External documents reviewed: N/A Test considered but not ordered:N/A ED course: Nontraumatic lumbar pain. Presents sciatica symptoms pain down to his left gluteal. No cauda equina symptoms. This dialysis patient. X-ray lumbar spine ordered, oxycodone ordered for symptom control. X-ray stable findings. Reevaluation reports minimal improvement. Discussed at this time symptomatic control with the patient. Avoiding NSAIDs with his renal disease history. Will continue oxycodone, discussed with patient outpatient follow-up with his PCP for further evaluation continued management. All questions were answered. Re-evaluation: stable Disposition discussed with patient/family/significant other: Patient Case discussed with consulting clinician: N/A This note was generated with [employer] dictation software. It may contain incorrect words, spelling, and punctuation that were not noted in checking the note before signing. Radiography Diagnostic Testing: Clinical Impression(s) from Imaging Studies Lumbar Spine X-Ray 09/14/24 00:00 IMPRESSION: Unchanged appearance of lumbar spine since previous radiographs. Electronically Signed: Aileen Shepherd MD at 1:48 EST Reading Location ID and State: [facility] / [place] , Service support , Discharge Plan Triage Chief Complaint: Back ED Provider: Jayden Galo Dx/Rx/DC Orders Clinical Impression: Sciatica, Back pain, ESRD on hemodialysis Instructions: ED Sciatica Prescriptions: New oxycodone-acetaminophen 5-325 mg tablet 1 tab PO Q6H PRN PRN (Reason: Pain) 3 Days Qty: 12 0RF No Action aspirin [Adult Aspirin Regimen] 81 mg tablet,delayed release (DR/EC) 81 mg PO DAILY midodrine 10 mg tablet 10 mg PO TID levothyroxine 25 mcg tablet 25 mcg PO DAILY warfarin 3 mg tablet 6 mg PO DAILY Protocol: Dose Management Condition: Friday Dose/Route: 2.5 mg Instruction: 0.5 x 5 mg tablets Condition: Friday Dose/Route: 2.5 mg Instruction: 0.5 x 5 mg tablets Condition: Friday Dose/Route: 2.5 mg Instruction: 0.5 x 5 mg tablets Condition: Friday Dose/Route: 2.5 mg Instruction: 0.5 x 5 mg tablets Condition: Dose/Route: 2.5 mg Instruction: 0.5 x 5 mg tablets Condition: Friday Dose/Route: 2.5 mg Instruction: 0.5 x 5 mg tablets Condition: Friday Dose/Route: 2.5 mg Instruction: 0.5 x 5 mg tablets Protocol Text: Adjustment Start Date: Friday09/10/24 INR Value: 2.4 INR Date: 09/10/24 Recheck Date: 09/17/24 cinacalcet 60 mg tablet 90 mg PO DAILY Juju-Tashi 0.8 mg tablet 1 tab PO DAILY Velphoro 500 mg tablet,chewable 1,500 mg PO TIDCM Patient Comments: CRUSH OR CHEW AND SWALLOW 3 TABLETS 3 TIMES A DAY WITH MEALS oxycodone 5 mg Tablet 5 - 10 mg PO Q6H PRN PRN (Reason: Pain Score 6-10) 7 Days Qty: 42 0RF (DME) BP monitor large cuff See Rx Instructions .Route .MEDSUPPLY Qty: 1 0RF Rx Instructions: As directed warfarin 5 mg tablet 5 mg PO DAILY Qty: 90 3RF Protocol: Dose Management Condition: Friday Dose/Route: 2.5 mg Instruction: 0.5 x 5 mg tablets Condition: Friday Dose/Route: 2.5 mg Instruction: 0.5 x 5 mg tablets Condition: Friday Dose/Route: 2.5 mg Instruction: 0.5 x 5 mg tablets Condition: Friday Dose/Route: 2.5 mg Instruction: 0.5 x 5 mg tablets Condition: Dose/Route: 2.5 mg Instruction: 0.5 x 5 mg tablets Condition: Friday Dose/Route: 2.5 mg Instruction: 0.5 x 5 mg tablets Condition: Friday Dose/Route: 2.5 mg Instruction: 0.5 x 5 mg tablets Protocol Text: Adjustment Start Date: Friday09/10/24 INR Value: 2.4 INR Date: 09/10/24 Recheck Date: 09/17/24 Primary Care Provider: Care Physician,No Primary Referrals: Care Physician,No Primary [Primary Care Provider] - Activity Restrictions/Additional Instructions: Lumbar x-ray stable from previous. Present sciatica symptoms. Take pain medications as prescribed. Follow-up your doctor. Print Language: Georgian Disposition Disposition: Home, Self Care Discharge Date/Time: 09/14/24 03:00
--- NOTE | 2024-09-14 | RAD_ITS ---
STUDY: X-RAY - LUMBAR SPINE REASON FOR EXAM: Male, 44 years old patient with low back pain. TECHNIQUE: 5 view(s) of the lumbar spine were obtained. COMPARISON: Radiographs of the lumbar spine dated January 25, 2022. FINDINGS: Normal lumbar lordosis. There is no substantial scoliosis. There is a normal alignment of the vertebrae. Normal vertebral bodies and endplates. Normal disc space heights. There is no demonstrated fracture. There is a lytic process involving spinous process of L4. This is unchanged since the previous study. There is a large bore vascular catheter present with the tip near the diaphragmatic hiatus. RAD/Lumbar Spine 2 or 3 Views IMPRESSION: Unchanged appearance of lumbar spine since previous radiographs. Electronically Signed: Aileen Shepherd MD at 1:48 EST ,
[2024-09-14] MEDS: oxyCODONE 5 MG Tablet PO (00:01)
[2024-09-14 00:42] VITALS: PULSE 88; RESP 18; O2SAT 94
[2024-09-14 03:04] VITALS: PULSE 88; RESP 15; TEMP 36.3; O2SAT 95
== END 2024-09-14 03:00 | disposition home or self-care (01) ==
PROVIDERS: Emergency Provider Emergency Medicine; Visit Provider Emergency Medicine
DX: M54.42 Lumbago with sciatica, left side (principal); I12.0 Hypertensive chronic kidney disease with stage 5 chronic kidney disease or end stage renal disease; N18.6 End stage renal disease; M48.8X6 Other specified spondylopathies, lumbar region; I48.0 Paroxysmal atrial fibrillation; E66.01 Morbid (severe) obesity due to excess calories; I25.2 Old myocardial infarction; I34.2 Nonrheumatic mitral (valve) stenosis; I34.0 Nonrheumatic mitral (valve) insufficiency; I65.23 Occlusion and stenosis of bilateral carotid arteries; N25.81 Secondary hyperparathyroidism of renal origin; G47.33 Obstructive sleep apnea (adult) (pediatric); Z95.2 Presence of prosthetic heart valve; Z88.8 Allergy status to other drugs, medicaments and biological substances; Z88.6 Allergy status to analgesic agent; Z79.01 Long term (current) use of 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s; Z99.2 Dependence on renal dialysis; Z79.82 Long term (current) use of aspirin; Z86.711 Personal history of pulmonary embolism; Z86.718 Personal history of other venous thrombosis and embolism; Z79.899 Other long term (current) drug therapy
CPT/HCPCS: 72100; 99282

== ENCOUNTER 2024-09-23 01:50 | Emergency (ER) | payer MEDICARE, SELFPAY ==
[2024-09-23 01:51] VITALS: BP 133/79; PULSE 101; RESP 18; TEMP 36.8; O2SAT 97; BMI 37.4
--- NOTE | 2024-09-23 02:18 | ED.RN ---
pts wound undressed with Dr. Barksdale. no source of active bleeding noted. pts dressing changed and Dr. Barksdale sent pt with a few extra dressing changes to go home.
--- NOTE | 2024-09-23 02:24 | EDS_ITS ---
HPI History of Present Illness Chief Complaint: Wound Informant: patient Narrative Narrative: Patient is a 44-year-old male with past medical history of end-stage renal disease on dialysis as well as paroxysmal atrial fibrillation currently on Coumadin. 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 He states that he has been doing well and he was driving back home from [place] after spending the day with family. He states that he felt like his shirt was suddenly wet and he noticed he was having breakthrough bleeding from his bandage. He states this happens occasionally and when it occurs he will typically need his bandage change in the ER. He denies lightheadedness dizziness or syncope. He states he has been taking his Coumadin as directed and that he is scheduled to have his INR checked tomorrow. 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 Mitral valve annular calcification Central retinal artery occlusion of left eye (10/09/20) History of non-ST elevation myocardial infarction (NSTEMI) (11/08/19) 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 History of bacterial endocarditis Mechanical complication of arteriovenous fistula surgically created Obstructive sleep apnea Non compliance w medication regimen Nonrheumatic mitral valve stenosis with insufficiency 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) Atrial flutter with rapid ventricular response (07/2020) Essential (primary) hypertension History of venous thromboembolism History of pulmonary embolus (PE) Bilateral carotid artery stenosis Paroxysmal atrial fibrillation (06/10/20) Unspecified symptoms and signs involving cognitive functions and awareness (04/05/20) 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) Expressive aphasia (04/05/20) ESRD on hemodialysis Dialysis patient Chronic kidney disease-mineral and bone disorder Chronic pelvic pain in male Pelvic mass Hematuria History of blood clots Hearing loss 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 due to renal insufficiency Morbidly obese Home Medications ?Medication ?Instructions ?Recorded ?Last Taken ?Type BP monitor #1 ea 07/17/21 Unknown Rx aspirin 81 mg tablet,delayed 81 mg PO DAILY 10/29/21 Unknown History release (Adult Aspirin Regimen) midodrine 10 mg tablet 10 mg PO TID 10/29/21 Unknown History sucroferric oxyhydroxide 500 mg 1,500 mg PO TIDCM 11/11/23 Unknown History chewable tablet (Velphoro) oxycodone 5 mg tablet 5 - 10 mg (1 - 2 x 5 mg) PO Q6H 11/14/23 Unknown Rx PRN PRN Pain Score 6-10 7 days #42 tabs warfarin 5 mg tablet 5 mg PO DAILY #90 tabs 05/07/24 Unknown Rx cinacalcet 60 mg tablet 90 mg PO DAILY 07/30/24 Unknown History levothyroxine 25 mcg tablet 25 mcg PO DAILY disorder of 07/30/24 Unknown History thyroid gland vitamin B complex-vitamin C-folic 1 tab PO DAILY 07/30/24 Unknown History acid 0.8 mg tablet (Juju-Tashi) warfarin 3 mg tablet 6 mg PO DAILY 07/30/24 Unknown History oxycodone-acetaminophen 5 mg-325 1 tab PO Q6H PRN PRN Pain 3 days 09/14/24 Unknown Rx mg tablet #12 TABLETS Allergy/AdvReac Type Severity Reaction Status Date / Time trazodone Allergy Severe Jittery/Sha Verified 09/23/24 01:51 ky gabapentin Allergy Other Verified 09/23/24 01:51 Family History Other Adopted Surgical History S/P PICC central line placement (06/15/24) Hx of mitral valve replacement History of angioplasty of peripheral vessel (08/28/21) History of tooth extraction, class IV edentulism (09/11/21) History of right and left heart catheterization (08/16/21) History of mitral valve replacement with bioprosthetic valve (08/21/21) Mechanical complication of dialysis catheter History of herniorrhaphy Status post creation of arteriovenous fistula History of cardioversion (12/02/18) History of repair of congenital cleft palate History of left heart catheterization (09/17/18) history of cather replacement Social History household members: none Smoking Status: Never smoker alcohol intake: never substance use type: marijuana what type of physical activity do you participate in: none ROS ROS ED Constitutional Constitutional ED: Denies chills or fever(s) Eyes Eyes: Denies change in vision ENT ENT ED: Denies sore throat Cardiovascular Cardiovascular: Denies chest pain Respiratory/Chest Respiratory/Chest: Denies cough or dyspnea Gastrointestinal Gastrointestinal: Denies abdominal pain, diarrhea, nausea or vomiting Musculoskeletal Musculoskeletal: Denies myalgias Integumentary Reports other Details: Positive chronic wounds Neurologic Neurologic: Denies headache(s) Hematologic/Lymphatic Hematologic/Lymphatic: Reports easy bleeding and easy bruising EXAM Physical Exam Const Vital Signs: 09/23/24 01:51 Temperature 98.2 F Temperature Source Temporal Pulse Rate 101 H Respiratory Rate 18 Blood Pressure 133/79 H Blood Pressure Mean 97 Pulse Ox 97 Oxygen Delivery Method Room Air Positive well nourished, well developed and obese General Appearance ED: well developed Nutritional Appearance: obese HEENT HEENT Narrative: Normocephalic atraumatic Eyes PERRL and EOMs intact bilaterally Eyes Narrative: Conjunctiva is pale consistent with history of anemia of chronic disease Neck supple Chest Wall Chest Narrative: There is a dialysis catheter in place in the right anterior chest wall without surrounding secondary findings to suggest infection or active bleeding Resp normal respiratory effort and clear to auscultation bilaterally Cardio regular rate and regular rhythm Extremity normal to inspection Neuro oriented x3 and CN's II-XII intact bilaterally Sensorium / Orientation: alert Psych mental status grossly normal Skin Skin Narrative: Patient has multiple ulcerations/chronic wounds across his abdomen and anterior chest. The one that is below the left breast/nipple has a moderate amount of dark red blood saturated through the dressing. Once the dressing was removed there is a circular subcutaneous layer deep ulceration roughly 2 x 2 cm in size. There is a clot present on the ulceration. The clot was removed and there is no repeat or breakthrough bleeding at this time. No surrounding secondary changes to suggest infection MDM MDM MDM Narrative Medical decision making narrative: Patient arrived to the ER with stable vitals. He has a history of chronic wounds and is on Coumadin and therefore breakthrough bleeding is common. As the bleeding has only been going on for roughly an hour and has seemed to spontaneously stop I have low concern for acute on chronic blood loss anemia and therefore do not feel the need to check laboratory values. Once the previous dressing was removed it did show a clot but once the clot was removed from the ulceration there was no repeat bleeding. Therefore there is no need for intervention such as silver nitrate or suturing. 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, ESRD (end stage renal disease), Paroxysmal atrial fibrillation Instructions: First Aid: Bleeding Prescriptions: No Action aspirin [Adult Aspirin Regimen] 81 mg tablet,delayed release (DR/EC) 81 mg PO DAILY midodrine 10 mg tablet 10 mg PO TID levothyroxine 25 mcg tablet 25 mcg PO DAILY warfarin 3 mg tablet 6 mg PO DAILY Protocol: Dose Management Condition: Friday Dose/Route: 2.5 mg Instruction: 0.5 x 5 mg tablets Condition: Friday Dose/Route: 2.5 mg Instruction: 0.5 x 5 mg tablets Condition: Friday Dose/Route: 2.5 mg Instruction: 0.5 x 5 mg tablets Condition: Friday Dose/Route: 2.5 mg Instruction: 0.5 x 5 mg tablets Condition: Dose/Route: 2.5 mg Instruction: 0.5 x 5 mg tablets Condition: Friday Dose/Route: 2.5 mg Instruction: 0.5 x 5 mg tablets Condition: Friday Dose/Route: 2.5 mg Instruction: 0.5 x 5 mg tablets Protocol Text: Adjustment Start Date: Friday09/10/24 INR Value: 2.4 INR Date: 09/10/24 Recheck Date: 09/17/24 cinacalcet 60 mg tablet 90 mg PO DAILY Juju-Tashi 0.8 mg tablet 1 tab PO DAILY Velphoro 500 mg tablet,chewable 1,500 mg PO TIDCM Patient Comments: CRUSH OR CHEW AND SWALLOW 3 TABLETS 3 TIMES A DAY WITH MEALS oxycodone 5 mg Tablet 5 - 10 mg PO Q6H PRN PRN (Reason: Pain Score 6-10) 7 Days Qty: 42 0RF oxycodone-acetaminophen 5-325 mg tablet 1 tab PO Q6H PRN PRN (Reason: Pain) 3 Days Qty: 12 0RF (DME) BP monitor large cuff See Rx Instructions .Route .MEDSUPPLY Qty: 1 0RF Rx Instructions: As directed warfarin 5 mg tablet 5 mg PO DAILY Qty: 90 3RF Protocol: Dose Management Condition: Friday Dose/Route: 2.5 mg Instruction: 0.5 x 5 mg tablets Condition: Friday Dose/Route: 2.5 mg Instruction: 0.5 x 5 mg tablets Condition: Friday Dose/Route: 2.5 mg Instruction: 0.5 x 5 mg tablets Condition: Friday Dose/Route: 2.5 mg Instruction: 0.5 x 5 mg tablets Condition: Dose/Route: 2.5 mg Instruction: 0.5 x 5 mg tablets Condition: Friday Dose/Route: 2.5 mg Instruction: 0.5 x 5 mg tablets Condition: Friday Dose/Route: 2.5 mg Instruction: 0.5 x 5 mg tablets Protocol Text: Adjustment Start Date: Friday09/10/24 INR Value: 2.4 INR Date: 09/10/24 Recheck Date: 09/17/24 Primary Care Provider: Care Physician,No Primary Referrals: Care Physician,No Primary [Primary Care Provider] - Activity Restrictions/Additional Instructions: Please continue to care for your wounds as you normally do. If you develop recurrent breakthrough bleeding or have any further concerns please return to the ER for repeat evaluation Print Language: Amharic Disposition Disposition: Home, Self Care Discharge Date/Time: 09/23/24 02:30
== END 2024-09-23 02:30 | disposition home or self-care (01) ==
PROVIDERS: Emergency Provider Emergency Medicine; Visit Provider Emergency Medicine
DX: L98.499 Non-pressure chronic ulcer of skin of other sites with unspecified severity (principal); I12.0 Hypertensive chronic kidney disease with stage 5 chronic kidney disease or end stage renal disease; N18.6 End stage renal disease; I48.0 Paroxysmal atrial fibrillation; N25.81 Secondary hyperparathyroidism of renal origin; I95.3 Hypotension of hemodialysis; I25.2 Old myocardial infarction; I34.0 Nonrheumatic mitral (valve) insufficiency; I34.2 Nonrheumatic mitral (valve) stenosis; E66.9 Obesity, unspecified; G47.33 Obstructive sleep apnea (adult) (pediatric); Z95.2 Presence of prosthetic heart valve; Z99.2 Dependence on renal dialysis; Z86.19 Personal history of other infectious and parasitic diseases; Z79.01 Long term (current) use of 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s; Z86.711 Personal history of pulmonary embolism; Z86.718 Personal history of other venous thrombosis and embolism; Z79.82 Long term (current) use of aspirin; Z79.890 Hormone replacement therapy; Z91.199 Patient's noncompliance with other medical treatment and regimen due to unspecified reason; Z79.899 Other long term (current) drug therapy
CPT/HCPCS: 99282

== ENCOUNTER 2024-09-23 13:08 | Outpatient (RCR) | payer MEDICARE, SELFPAY ==
[2024-09-10 12:49] LABS: International Normalized Ratio 2.4; Prothrombin Time (Protime)PT. 26.3 SECONDS (11.7-14.9)
[2024-09-23 14:15] LABS: International Normalized Ratio 1.3
== END 2024-09-23 18:00 | disposition home or self-care (01) ==
LOC: LAB 13:08
PROVIDERS: Referring Provider Internal Medicine Cardiovascular Disease; Visit Provider Internal Medicine Cardiovascular Disease
DX: I48.0 Paroxysmal atrial fibrillation (principal); I48.92 Unspecified atrial flutter; N18.6 End stage renal disease; Z79.01 Long term (current) use of 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s
CPT/HCPCS: 36415; 85610

== ENCOUNTER 2024-10-01 12:16 | Outpatient (RCR) | payer MEDICARE, SELFPAY ==
[2024-10-01 13:28] LABS: International Normalized Ratio 1.3; Prothrombin Time (Protime)PT. 16.1 SECONDS (11.7-14.9)
== END 2024-10-01 18:00 | disposition home or self-care (01) ==
LOC: LAB 12:16
PROVIDERS: Referring Provider Internal Medicine Cardiovascular Disease; Visit Provider Internal Medicine Cardiovascular Disease
DX: I48.0 Paroxysmal atrial fibrillation (principal)
CPT/HCPCS: 36415; 85610

== ENCOUNTER 2024-12-01 07:58 | Emergency (ER) | payer MEDICARE, SELFPAY ==
[2024-12-01 08:00] VITALS: BP 168/71; PULSE 88; RESP 17; TEMP 36.4; O2SAT 95
--- NOTE | 2024-12-01 09:07 | EX.ED.DYSGE1 ---
HPI History of Present Illness Chief Complaint: Other, Pain/Inj Narrative Narrative: Patient is a 44-year-old male with a past medical history of chronic kidney disease goes to dialysis Friday, chronic ulcers on his chest and back follows with wound care, atrial flutter, PE on warfarin, inferior vena cava occlusion, YEIMY who presents to the emergency department the chief complaint of bleeding from his chest. Patient states that this morning he was going to dialysis and as he was walking out the door he states that he tripped over some shoes hitting his chest on the door. He states that he was going to go to dialysis and noted that his shirt started to become soaked with blood. He states that it continued to bleed and he could not get this to stop therefore he came here for the valuation management. Patient states that he is concerned that he may have infection in 1 of these wounds as he states that he has had a fever and states that his temperatures been 99 at home. He states that he knows his body and feels like he may be starting to develop [address] 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 Mitral valve annular calcification Central retinal artery occlusion of left eye (10/09/20) History of non-ST elevation myocardial infarction (NSTEMI) (11/08/19) 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 History of bacterial endocarditis Mechanical complication of arteriovenous fistula surgically created Obstructive sleep apnea Non compliance w medication regimen Nonrheumatic mitral valve stenosis with insufficiency 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) Atrial flutter with rapid ventricular response (07/2020) Essential (primary) hypertension History of venous thromboembolism History of pulmonary embolus (PE) Bilateral carotid artery stenosis Paroxysmal atrial fibrillation (06/10/20) Unspecified symptoms and signs involving cognitive functions and awareness (04/05/20) 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) Expressive aphasia (04/05/20) ESRD on hemodialysis Dialysis patient Chronic kidney disease-mineral and bone disorder Chronic pelvic pain in male Pelvic mass Hematuria History of blood clots Hearing loss 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 due to renal insufficiency Morbidly obese Home Medications ?Medication ?Instructions ?Recorded ?Last Taken ?Type BP monitor #1 ea 07/17/21 Unknown Rx aspirin 81 mg tablet,delayed 81 mg PO DAILY 10/29/21 Unknown History release (Adult Aspirin Regimen) midodrine 10 mg tablet 10 mg PO TID 10/29/21 Unknown History sucroferric oxyhydroxide 500 mg 1,500 mg PO TIDCM 11/11/23 Unknown History chewable tablet (Velphoro) oxycodone 5 mg tablet 5 - 10 mg (1 - 2 x 5 mg) PO Q6H 11/14/23 Unknown Rx PRN PRN Pain Score 6-10 7 days #42 tabs warfarin 5 mg tablet 5 mg PO DAILY #90 tabs 05/07/24 Unknown Rx cinacalcet 60 mg tablet 90 mg PO DAILY 07/30/24 Unknown History levothyroxine 25 mcg tablet 25 mcg PO DAILY disorder of 07/30/24 Unknown History thyroid gland vitamin B complex-vitamin C-folic 1 tab PO DAILY 07/30/24 Unknown History acid 0.8 mg tablet (Juju-Tashi) warfarin 3 mg tablet 6 mg PO DAILY 07/30/24 Unknown History oxycodone-acetaminophen 5 mg-325 1 tab PO Q6H PRN PRN Pain 3 days 09/14/24 Unknown Rx mg tablet #12 TABLETS doxycycline hyclate 100 mg capsule 100 mg PO BID 5 days #10 caps 12/01/24 Unknown Rx Allergy/AdvReac Type Severity Reaction Status Date / Time trazodone Allergy Severe Jittery/Sha Verified 09/23/24 01:51 ky gabapentin Allergy Other Verified 09/23/24 01:51 Family History Other Adopted Surgical History S/P PICC central line placement (06/15/24) Hx of mitral valve replacement History of angioplasty of peripheral vessel (08/28/21) History of tooth extraction, class IV edentulism (09/11/21) History of right and left heart catheterization (08/16/21) History of mitral valve replacement with bioprosthetic valve (08/21/21) Mechanical complication of dialysis catheter History of herniorrhaphy Status post creation of arteriovenous fistula History of cardioversion (12/02/18) History of repair of congenital cleft palate History of left heart catheterization (09/17/18) history of cather replacement Social History household members: none Smoking Status: Never smoker alcohol intake: never substance use type: marijuana what type of physical activity do you participate in: none ROS ROS ED ROS Narrative Constitutional: Complaint of fever as noted above denies chills, lightness, dizziness Eyes: Denies change in visual vision blurry vision Cardiovascular: Denies chest pain palpitations Respiratory: Shortness of breath Abdomen: Denies nausea vomit diarrhea Neurological: Denies numbness, weakness, tingling Musculoskeletal: Denies any pain in the back Skin: Complains of chronic wounds with a active bleeding wound no EXAM Physical Exam Narrative Exam Narrative: General: Patient lying in bed rest comfortably did not appear to be in acute distress Head: Atraumatic, normocephalic Eyes: PERRL bilaterally, EOMI bilaterally, no conjunctival injection noted Neck: Soft, supple, trachea midline Cardiovascular: Regular in rhythm Respiratory: Clear to auscultation bilaterally Abdomen: No tenderness palpation, soft, nondistended Extremities: +5/5 strength noted in the bilateral upper and lower extremities Neurological: Patient follow commands knew he was at [facility] year is 2024 Skin: Patient has chronic wounds with bandages noted in place on his right chest below his nipple line as well as on the left side which was the site that was bleeding, as well as dressing noted to the left anterior abdomen. Patient's chronic wounds on his back as well. Const Vital Signs: 12/01/24 08:00 Temperature 97.6 F L Temperature Source Temporal Pulse Rate 88 Respiratory Rate 17 Blood Pressure 168/71 H Blood Pressure Mean 103 Pulse Ox 95 Oxygen Delivery Method Room Air MDM MDM MDM Narrative Medical decision making narrative: Patient is a 44-year-old male who presented to the emergency department with a chief complaint of bleeding wound on his chest after hitting his chest on the door and not able to get this stopped. Nursing staff held pressure for a significant time this continue to bleed therefore quick clot was used. At the time my evaluation there was no active bleeding we will check an INR as he is on warfarin. The wounds do not appear to be infected at this point time. Patient's INR was noted be 1.7 here in the emergency department. He was advised to have his INR rechecked. He has no further bleeding here in the emergency department. We called his dialysis center and they state that he can get dialysis today when he is discharged. I advised the patient to go straight to dialysis as they will get him dialyzed. He was advised to return with worsening symptoms and concerns. Patient was persistent/adamant about getting on antibiotics for concern for infection therefore these were sent to his pharmacy even though I have very low suspicion that his wounds are infected as he has no purulent drainage noted. All question concerns answered he is discharged home in stable condition. Lab Data Labs: Laboratory Results - last 24 hr 12/01/24 08:51 PT 20.7 H INR 1.7 APTT 35.7 Discharge Plan Triage Chief Complaint: Other, Pain/Inj ED Provider: Mau De Souza Dx/Rx/DC Orders Clinical Impression: Chronic wound Prescriptions: New doxycycline hyclate 100 mg capsule 100 mg PO BID 5 Days Qty: 10 0RF No Action aspirin [Adult Aspirin Regimen] 81 mg tablet,delayed release (DR/EC) 81 mg PO DAILY midodrine 10 mg tablet 10 mg PO TID levothyroxine 25 mcg tablet 25 mcg PO DAILY warfarin 3 mg tablet 6 mg PO DAILY Protocol: Dose Management Condition: Friday Dose/Route: 2.5 mg Instruction: 0.5 x 5 mg tablets Condition: Friday Dose/Route: 2.5 mg Instruction: 0.5 x 5 mg tablets Condition: Friday Dose/Route: 2.5 mg Instruction: 0.5 x 5 mg tablets Condition: Friday Dose/Route: 2.5 mg Instruction: 0.5 x 5 mg tablets Condition: Dose/Route: 2.5 mg Instruction: 0.5 x 5 mg tablets Condition: Friday Dose/Route: 5 mg Instruction: 1 x 5 mg tablet Condition: Friday Dose/Route: 2.5 mg Instruction: 0.5 x 5 mg tablets Protocol Text: Adjustment Start Date: Friday10/01/24 INR Value: 1.3 INR Date: 10/01/24 Recheck Date: 10/06/24 cinacalcet 60 mg tablet 90 mg PO DAILY Juju-Tashi 0.8 mg tablet 1 tab PO DAILY Velphoro 500 mg tablet,chewable 1,500 mg PO TIDCM Patient Comments: CRUSH OR CHEW AND SWALLOW 3 TABLETS 3 TIMES A DAY WITH MEALS oxycodone 5 mg Tablet 5 - 10 mg PO Q6H PRN PRN (Reason: Pain Score 6-10) 7 Days Qty: 42 0RF oxycodone-acetaminophen 5-325 mg tablet 1 tab PO Q6H PRN PRN (Reason: Pain) 3 Days Qty: 12 0RF (DME) BP monitor large cuff See Rx Instructions .Route .MEDSUPPLY Qty: 1 0RF Rx Instructions: As directed warfarin 5 mg tablet 5 mg PO DAILY Qty: 90 3RF Protocol: Dose Management Condition: Friday Dose/Route: 2.5 mg Instruction: 0.5 x 5 mg tablets Condition: Friday Dose/Route: 2.5 mg Instruction: 0.5 x 5 mg tablets Condition: Friday Dose/Route: 2.5 mg Instruction: 0.5 x 5 mg tablets Condition: Friday Dose/Route: 2.5 mg Instruction: 0.5 x 5 mg tablets Condition: Dose/Route: 2.5 mg Instruction: 0.5 x 5 mg tablets Condition: Friday Dose/Route: 5 mg Instruction: 1 x 5 mg tablet Condition: Friday Dose/Route: 2.5 mg Instruction: 0.5 x 5 mg tablets Protocol Text: Adjustment Start Date: Friday10/01/24 INR Value: 1.3 INR Date: 10/01/24 Recheck Date: 10/06/24 Primary Care Provider: Care Physician,No Primary Referrals: Care Physician,No Primary [Primary Care Provider] - Activity Restrictions/Additional Instructions: Have your INR rechecked in 1 to 2 days as it is noted to be 1.7 today. Take antibiotics as prescribed. Go straight to dialysis as they are waiting for you today. Return with worsening symptoms or concern Print Language: Bulgarian Disposition Disposition: Home, Self Care
[2024-12-01 09:13] LABS: International Normalized Ratio 1.7; Prothrombin Time (Protime)PT. 20.7 SECONDS (11.7-14.9)
[2024-12-01 09:14] LABS: Partial Thromboplast Time 35.7 Seconds (24.1-36.2)
[2024-12-01 09:44] VITALS: BMI 39.7
[2024-12-01] MEDS: Acetaminophen 500 MG Tablet 1000 MG PO (09:45)
--- NOTE | 2024-12-01 09:51 | ED.RN ---
CALLED [facility] AT [phone] AND THEY SAID THEY WILL SEE PATIENT SOON HE IS DC. THEY SAID JUST HAVE HIM COME STRAIGHT TO THE FACILITY FROM HERE.
[2024-12-01 10:40] VITALS: BP 158/78; PULSE 85; RESP 16; TEMP 36.8; O2SAT 99
== END 2024-12-01 10:42 | disposition home or self-care (01) ==
PROVIDERS: Emergency Provider Emergency Medicine; Visit Provider Emergency Medicine
DX: S21.102A Unspecified open wound of left front wall of thorax without penetration into thoracic cavity, initial encounter (principal); I12.0 Hypertensive chronic kidney disease with stage 5 chronic kidney disease or end stage renal disease; N18.6 End stage renal disease; L98.429 Non-pressure chronic ulcer of back with unspecified severity; I48.0 Paroxysmal atrial fibrillation; I48.92 Unspecified atrial flutter; W18.09XA Striking against other object with subsequent fall, initial encounter; Z99.2 Dependence on renal dialysis; I25.2 Old myocardial infarction; I34.2 Nonrheumatic mitral (valve) stenosis; I34.0 Nonrheumatic mitral (valve) insufficiency; N25.81 Secondary hyperparathyroidism of renal origin; G47.33 Obstructive sleep apnea (adult) (pediatric); Z95.2 Presence of prosthetic heart valve; Z86.711 Personal history of pulmonary embolism; Z79.82 Long term (current) use of aspirin; Z79.890 Hormone replacement therapy; Z79.899 Other long term (current) drug therapy; Z86.79 Personal history of other diseases of the circulatory system
CPT/HCPCS: 36415; 85610; 85730; 99282

== ENCOUNTER 2024-12-22 20:06 | Emergency (ER) | payer MEDICARE, SELFPAY ==
[2024-12-22 20:06] VITALS: BP 111/64; PULSE 118; RESP 16; TEMP 36.7; O2SAT 99; BMI 37.1
[2024-12-22 21:20] VITALS: BP 116/90; PULSE 105
[2024-12-22 21:57] VITALS: BP 106/91; RESP 16; O2SAT 96
--- NOTE | 2024-12-22 22:42 | EX.ED.DYSGE1 ---
HPI History of Present Illness Chief Complaint: Wound Informant: patient Onset/Context/Timing Onset: Today Context: Gradual Onset Timing: Continuous Quality: Bleeding Location: Back Worsened by: Nothing Relieved by: Nothing Narrative Narrative: Patient presents with bleeding from his wounds on his back. Patient states he has chronic wounds on his back. Patient states he thinks he hit them getting out of the car today. Patient states the bleeding has been persistent. Patient states he is on Coumadin for mechanical heart valve. Patient denies any fevers or chills. Patient denies any nausea or vomiting. Patient denies any chest pain or shortness of breath. 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) Anemia in chronic kidney disease Dyspnea Secondary renal hyperparathyroidism Abdominal wall cellulitis Thrombosis of kidney dialysis arteriovenous graft COVID-19 virus detected (10/02/21) Dental caries Dialysis AV fistula malfunction Postoperative complete heart block (08/21/21) Hypotension of hemodialysis Pain of right lower extremity Medication side effects Chronic ulcer of back Sepsis Non-healing non-surgical wound Daily headache [facility] current use of 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 Mitral valve annular calcification Central retinal artery occlusion of left eye (10/09/20) History of non-ST elevation myocardial infarction (NSTEMI) (11/08/19) 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 History of bacterial endocarditis Mechanical complication of arteriovenous fistula surgically created Obstructive sleep apnea Non compliance w medication regimen Nonrheumatic mitral valve stenosis with insufficiency 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) Atrial flutter with rapid ventricular response (07/2020) Essential (primary) hypertension History of venous thromboembolism History of pulmonary embolus (PE) Bilateral carotid artery stenosis Paroxysmal atrial fibrillation (06/10/20) Unspecified symptoms and signs involving cognitive functions and awareness (04/05/20) 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) Expressive aphasia (04/05/20) ESRD on hemodialysis Dialysis patient Chronic kidney disease-mineral and bone disorder Chronic pelvic pain in male Pelvic mass Hematuria History of blood clots Hearing loss 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 due to renal insufficiency Morbidly obese Home Medications ?Medication ?Instructions ?Recorded ?Last Taken ?Type BP monitor #1 ea 07/17/21 Unknown Rx aspirin 81 mg tablet,delayed 81 mg PO DAILY 10/29/21 Unknown History release (Adult Aspirin Regimen) midodrine 10 mg tablet 10 mg PO TID 10/29/21 Unknown History sucroferric oxyhydroxide 500 mg 1,500 mg PO TIDCM 11/11/23 Unknown History chewable tablet (Velphoro) oxycodone 5 mg tablet 5 - 10 mg (1 - 2 x 5 mg) PO Q6H 11/14/23 Unknown Rx PRN PRN Pain Score 6-10 7 days #42 tabs warfarin 5 mg tablet 5 mg PO DAILY #90 tabs 05/07/24 Unknown Rx cinacalcet 60 mg tablet 90 mg PO DAILY 07/30/24 Unknown History levothyroxine 25 mcg tablet 25 mcg PO DAILY disorder of 07/30/24 Unknown History thyroid gland vitamin B complex-vitamin C-folic 1 tab PO DAILY 07/30/24 Unknown History acid 0.8 mg tablet (Juju-Tashi) warfarin 3 mg tablet 6 mg PO DAILY 07/30/24 Unknown History oxycodone-acetaminophen 5 mg-325 1 tab PO Q6H PRN PRN Pain 3 days 09/14/24 Unknown Rx mg tablet #12 TABLETS doxycycline hyclate 100 mg capsule 100 mg PO BID 5 days #10 caps 12/01/24 Unknown Rx Allergy/AdvReac Type Severity Reaction Status Date / Time trazodone Allergy Severe Jittery/Sha Verified 12/22/24 20:09 ky gabapentin Allergy Other Verified 12/22/24 20:09 Family History Other Adopted Surgical History S/P PICC central line placement (06/15/24) Hx of mitral valve replacement History of angioplasty of peripheral vessel (08/28/21) History of tooth extraction, class IV edentulism (09/11/21) History of right and left heart catheterization (08/16/21) History of mitral valve replacement with bioprosthetic valve (08/21/21) Mechanical complication of dialysis catheter History of herniorrhaphy Status post creation of arteriovenous fistula History of cardioversion (12/02/18) History of repair of congenital cleft palate History of left heart catheterization (09/17/18) history of cather replacement Social History household members: none Smoking Status: Never smoker alcohol intake: never substance use type: marijuana what type of physical activity do you participate in: none ROS ROS ED Constitutional Constitutional ED: Denies chills or fever(s) Eyes Eyes: Denies blurry vision or change in vision ENT ENT ED: Denies rhinorrhea or sore throat Cardiovascular Cardiovascular: Denies chest pain or palpitations Respiratory/Chest Respiratory/Chest: Denies cough or dyspnea Gastrointestinal Gastrointestinal: Denies nausea or vomiting Genitourinary Genitourinary ED: Denies dysuria or hematuria Musculoskeletal Musculoskeletal: Reports back pain; Denies neck pain Integumentary Denies abscess or rash Neurologic Neurologic: Denies headache(s) or weakness Allergic/Immunologic Allergic/Immunologic ED: Denies mouth swelling or urticaria EXAM Physical Exam Const Vital Signs: 12/22/24 20:06 12/22/24 21:20 12/22/24 21:57 Temperature 98.1 F Temperature Source Temporal Pulse Rate 118 H 105 H Respiratory Rate 16 16 Blood Pressure 111/64 116/90 H 106/91 H Blood Pressure Mean 79 98 96 Pulse Ox 99 96 Oxygen Delivery Method Room Air Room Air 12/22/24 23:38 Temperature Temperature Source Pulse Rate 104 H Respiratory Rate 18 Blood Pressure 123/83 H Blood Pressure Mean 96 Pulse Ox Oxygen Delivery Method Positive well nourished and well developed General Appearance ED: well developed and NAD HEENT Reports moist mucous membranes Neck supple and no JVD Resp normal respiratory effort and clear to auscultation bilaterally Cardio regular rate and regular rhythm GI non-distended Palpation: soft Neuro oriented x3, CN's II-XII intact bilaterally and no sensory deficits noted Sensorium / Orientation: alert Motor Exam: strength 5/5 throughout Psych mental status grossly normal Skin Skin Narrative: There are chronic open wounds of over the lower thoracic area. There is some mild bleeding noted from the left lateral wound. There is no surrounding erythema or warmth noted. There is no discharge or drainage. There is no induration noted. MDM MDM MDM Narrative Medical decision making narrative: Differential diagnosis includes anemia, coagulopathy, chronic wounds. CBC will be obtained to assess for leukocytosis and anemia. PT with INR and PTT will be obtained to assess for coagulopathy. Lab Data Attestation: I reviewed the patient's lab results. Lab results narrative: CBC was reviewed. There is a mild anemia with a hemoglobin of 12.6. This is consistent with previous results. PT with INR and PTT were reviewed. Pro time was 34.1 and INR is 3.3. PTT was 59.9. Labs: Laboratory Results - last 24 hr 12/22/24 23:22 WBC 6.9 RBC 4.37 L Hgb 12.6 L Hct 40.3 MCV 92.2 MCH 28.8 MCHC 31.3 L RDW Std Deviation 61.6 H RDW Coeff of Lance 18.3 H Plt Count 238 MPV 9.5 Immature Gran % (Auto) 0.900 Neut % (Auto) 69.7 Lymph % (Auto) 12.6 L [place] % (Auto) 14.1 H Eos % (Auto) 2.0 Baso % (Auto) 0.7 Absolute Neuts (auto) 4.8 Absolute Lymphs (auto) 0.87 Nucleated RBC % 0 PT 34.1 H INR 3.3 APTT 59.9 H Treatment and Re-Evaluation :: Patient was given a dose of Tylenol here. Xeroform gauze dressings were applied to the wounds. Patient was instructed to keep bandage clean and dry. Patient was instructed to follow-up with his primary care physician in 5 to 7 days. Patient understood and was agreeable with the plan. All questions were answered. Discharge Plan Triage Chief Complaint: Wound ED Provider: Piero Maqrues Dx/Rx/DC Orders Clinical Impression: Open wound left back wall thorax w/o penentrat into thoracic cavity, ESRD (end stage renal disease) Instructions: ED Chronic Kidney Disease (CKD), ED Wound Care Prescriptions: No Action aspirin [Adult Aspirin Regimen] 81 mg tablet,delayed release (DR/EC) 81 mg PO DAILY midodrine 10 mg tablet 10 mg PO TID levothyroxine 25 mcg tablet 25 mcg PO DAILY warfarin 3 mg tablet 6 mg PO DAILY Protocol: Dose Management Condition: Friday Dose/Route: 2.5 mg Instruction: 0.5 x 5 mg tablets Condition: Friday Dose/Route: 2.5 mg Instruction: 0.5 x 5 mg tablets Condition: Friday Dose/Route: 2.5 mg Instruction: 0.5 x 5 mg tablets Condition: Friday Dose/Route: 2.5 mg Instruction: 0.5 x 5 mg tablets Condition: Dose/Route: 2.5 mg Instruction: 0.5 x 5 mg tablets Condition: Friday Dose/Route: 5 mg Instruction: 1 x 5 mg tablet Condition: Friday Dose/Route: 2.5 mg Instruction: 0.5 x 5 mg tablets Protocol Text: Adjustment Start Date: Friday10/01/24 INR Value: 1.3 INR Date: 10/01/24 Recheck Date: 10/06/24 cinacalcet 60 mg tablet 90 mg PO DAILY Juju-Tashi 0.8 mg tablet 1 tab PO DAILY Velphoro 500 mg tablet,chewable 1,500 mg PO TIDCM Patient Comments: CRUSH OR CHEW AND SWALLOW 3 TABLETS 3 TIMES A DAY WITH MEALS oxycodone 5 mg Tablet 5 - 10 mg PO Q6H PRN PRN (Reason: Pain Score 6-10) 7 Days Qty: 42 0RF oxycodone-acetaminophen 5-325 mg tablet 1 tab PO Q6H PRN PRN (Reason: Pain) 3 Days Qty: 12 0RF doxycycline hyclate 100 mg capsule 100 mg PO BID 5 Days Qty: 10 0RF (DME) BP monitor large cuff See Rx Instructions .Route .MEDSUPPLY Qty: 1 0RF Rx Instructions: As directed warfarin 5 mg tablet 5 mg PO DAILY Qty: 90 3RF Protocol: Dose Management Condition: Friday Dose/Route: 2.5 mg Instruction: 0.5 x 5 mg tablets Condition: Friday Dose/Route: 2.5 mg Instruction: 0.5 x 5 mg tablets Condition: Friday Dose/Route: 2.5 mg Instruction: 0.5 x 5 mg tablets Condition: Friday Dose/Route: 2.5 mg Instruction: 0.5 x 5 mg tablets Condition: Dose/Route: 2.5 mg Instruction: 0.5 x 5 mg tablets Condition: Friday Dose/Route: 5 mg Instruction: 1 x 5 mg tablet Condition: Friday Dose/Route: 2.5 mg Instruction: 0.5 x 5 mg tablets Protocol Text: Adjustment Start Date: Friday10/01/24 INR Value: 1.3 INR Date: 10/01/24 Recheck Date: 10/06/24 Primary Care Provider: Care Physician,No Primary Referrals: Care Physician,No Primary [Primary Care Provider] - Doctor,Your [Non-Staff] - 3-5 Days Print Language: [place] Irish Disposition Disposition: Home, Self Care
[2024-12-22] MEDS: Acetaminophen 500 MG Tablet 1000 MG PO (23:07)
[2024-12-22 23:28] LABS: Absolute Lymphocyte Count 0.87 X10^3/uL (0.83-4.51); Absolute Neutrophil Count 4.8 X10^3/uL (2.0-7.7); Basophil# 0.05 X10^3/uL; Basophil% 0.7 % (0-1); Eosinophil# 0.14 X10^3/uL; Hematocrit 40.3 % (40-54); Hemoglobin 12.6 g/dL (13.0-16.5); Lymphocyte # 0.87 X10^3/ul (0.83-4.51); Lymphocyte % 12.6 % (19-41); Mean Corp Hgb Conc 31.3 g/dL (32-36); Mean Corpuscular Hgb 28.8 pg (27.0-32.0); Mean Corpuscular Volume 92.2 fL (80-94); Mean Platelet Vol. 9.5 fl (6.2-12.0); Monocyte# 0.97 X10^3/uL; Monocyte% 14.1 % (0-10); NRBC Flagged by Analyzer 0 % (0-5); Neutrophil # 4.79 X10^3/uL (2.7-7.7); Neutrophil % 69.7 % (47-70); Platelet Count 238 K/mm3 (150-450); RBC Distribution Width CV 18.3 % (11.6-14.6); RBC Distribution Width SD 61.6 fl (35.1-43.9); Red Blood Count 4.37 M/mm3 (4.6-6.2); White Blood Count 6.9 K/mm3 (4.4-11.0)
[2024-12-22 23:38] VITALS: BP 123/83; PULSE 104; RESP 18
[2024-12-22 23:40] LABS: International Normalized Ratio 3.3; Prothrombin Time (Protime)PT. 34.1 SECONDS (11.7-14.9)
[2024-12-22 23:41] LABS: Partial Thromboplast Time 59.9 Seconds (24.1-36.2)
[2024-12-23] VITALS: BP 144/130; PULSE 81; RESP 18; TEMP 36.3; O2SAT 98
== END 2024-12-23 00:11 | disposition home or self-care (01) ==
PROVIDERS: Emergency Provider Emergency Medicine; Referring Provider Emergency Medicine; Visit Provider Emergency Medicine
DX: S21.202A Unspecified open wound of left back wall of thorax without penetration into thoracic cavity, initial encounter (principal); I12.0 Hypertensive chronic kidney disease with stage 5 chronic kidney disease or end stage renal disease; N18.6 End stage renal disease; I48.0 Paroxysmal atrial fibrillation; X58.XXXA Exposure to other specified factors, initial encounter; D63.1 Anemia in chronic kidney disease; N25.81 Secondary hyperparathyroidism of renal origin; I95.3 Hypotension of hemodialysis; I25.2 Old myocardial infarction; I34.2 Nonrheumatic mitral (valve) stenosis; I34.0 Nonrheumatic mitral (valve) insufficiency; G47.33 Obstructive sleep apnea (adult) (pediatric); Z95.2 Presence of prosthetic heart valve; Z99.2 Dependence on renal dialysis; Z79.01 Long term (current) use of 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s; Z79.82 Long term (current) use of aspirin; Z86.711 Personal history of pulmonary embolism; Z86.718 Personal history of other venous thrombosis and embolism; Z79.890 Hormone replacement therapy; Z79.899 Other long term (current) drug therapy
CPT/HCPCS: 36415; 85025; 85610; 85730; 99284

== ENCOUNTER 2025-01-04 22:05 | Emergency (ER) | payer MEDICARE, SELFPAY ==
[2025-01-04 22:07] VITALS: BP 138/69; PULSE 79; RESP 20; TEMP 36.8; O2SAT 100; BMI 39.9
--- NOTE | 2025-01-04 22:11 | EDS_ITS ---
HPI History of Present Illness Chief Complaint: Wound Detail of Chief Complaint: Bleeding from the wounds on his back Informant: patient Onset/Context/Timing Onset: Today Context: Sudden Onset Timing: - (He is uncertain) Quality: Patient has 3 wounds on his back. Dressing is bloody. Location: Mid central back and right and left flank region Current Severity: Mild Maximum Severity: Moderate Worsened by: Nothing Relieved by: Nothing Associated Symptoms Associated Symptoms: No constitutional symptoms Narrative Narrative: Patient is a 44-year-old male. Patient has renal failure with dialysis catheter right subclavian. He is dialyzed on Friday, Friday and Friday. He did have dialysis yesterday. He is on 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 for paroxysmal atrial fibrillation. He has secondary renal hyper parathyroidism history of non-ST elevation NC, history of mitral valve replacement with bioprosthetic valve. He presents because of blood noted on his dressing. He noted that this evening. His dressing was changed this morning by visiting nurse service. He has no other complaints. He denies fever, chills night sweats. He denies orthostatic sympto ms. 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 Mitral valve annular calcification Central retinal artery occlusion of left eye (10/09/20) History of non-ST elevation myocardial infarction (NSTEMI) (11/08/19) 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 History of bacterial endocarditis Mechanical complication of arteriovenous fistula surgically created Obstructive sleep apnea Non compliance w medication regimen Nonrheumatic mitral valve stenosis with insufficiency 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) Atrial flutter with rapid ventricular response (07/2020) Essential (primary) hypertension History of venous thromboembolism History of pulmonary embolus (PE) Bilateral carotid artery stenosis Paroxysmal atrial fibrillation (06/10/20) Unspecified symptoms and signs involving cognitive functions and awareness (04/05/20) 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) Expressive aphasia (04/05/20) ESRD on hemodialysis Dialysis patient Chronic kidney disease-mineral and bone disorder Chronic pelvic pain in male Pelvic mass Hematuria History of blood clots Hearing loss 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 due to renal insufficiency Morbidly obese Home Medications ?Medication ?Instructions ?Recorded ?Last Taken ?Type BP monitor #1 ea 07/17/21 Unknown Rx aspirin 81 mg tablet,delayed 81 mg PO DAILY 10/29/21 U nknown History release (Adult Aspirin Regimen) midodrine 10 mg tablet 10 mg PO TID 10/29/21 Unknow n History sucroferric oxyhydroxide 500 mg 1,500 mg PO TIDCM 10/30 12/20 Unknown History chewable tablet (Velphoro) oxycodone 5 mg tablet 5 - 10 mg (1 - 2 x 5 mg) PO Q6H 11/14/23 Unknown Rx PRN PRN Pain Score 6-10 7 days #42 tabs warfarin 5 mg tablet 5 mg PO DAILY #90 tabs 05/07 Unknown Rx cinacalcet 60 mg tablet 90 mg PO DAILY 07/30/24 Unkn own History levothyroxine 25 mcg tablet 25 mcg PO DAILY disorder o f 07/30/24 Unknown History thyroid gland vitamin B complex-vitamin C-folic 1 tab PO DAILY 07/30 Unknown History acid 0.8 mg tablet (Juju-Tashi) warfarin 3 mg tablet 6 mg PO DAILY 07/30/24 Unkno wn History oxycodone-acetaminophen 5 mg-325 1 tab PO Q6H PRN PRN Pain 3 days 09/14/24 Unknown Rx mg tablet #12 TABLETS doxycycline hyclate 100 mg capsule 100 mg PO BID 5 day s #10 caps 12/01/24 Unknown Rx Allergy/AdvReac Type Severity Reaction Status Date / Time trazodone Allergy Severe Jittery/Sha Verified 01/04/25 22:07 ky gabapentin Allergy Other Verified 01/04/25 22:07 Family History Other Adopted Surgical History S/P PICC central line placement (06/15/24) Hx of mitral valve replacement History of angioplasty of peripheral vessel (08/28/21) History of tooth extraction, class IV edentulism (09/11/21) History of right and left heart catheterization (08/16/21) History of mitral valve replacement with bioprosthetic valve (08/21/21) Mechanical complication of dialysis catheter History of herniorrhaphy Status post creation of arteriovenous fistula History of cardioversion (12/02/18) History of repair of congenital cleft palate History of left heart catheterization (09/17/18) history of cather replacement Social History household members: none Smoking Status: Never smoker alcohol intake: never substance use type: marijuana what type of physical activity do you participate in: none ROS ROS ED Constitutional Constitutional ED: Denies chills, fever(s), subjective, sweats or weight loss Eyes Eyes: Denies change in vision Cardiovascular Cardiovascular: Denies chest pain, palpitations or paroxysmal nocturnal dyspnea Respiratory/Chest Respiratory/Chest: Denies cough, dyspnea, dyspnea on exertion or paroxysmal nocturnal dyspnea Gastrointestinal Gastrointestinal: Denies abdominal pain, nausea or vomiting Integumentary Reports other Details: Wounds on his chest, abdomen and back. Wounds on his back are bleeding. Hematologic/Lymphatic Hematologic/Lymphatic: Reports easy bruising EXAM Physical Exam Const Vital Signs: 01/04/25 22:07 Temperature 98.3 F Temperature Source Oral Pulse Rate 79 Respiratory Rate 20 H Blood Pressure 138/69 H Blood Pressure Mean 92 Pulse Ox 100 Oxygen Delivery Method Room Air Positive well nourished and well developed Constitutional Narrative: BMI is 40.0. He appears in no distress. General Appearance ED: well developed; Negative for cyanotic or diaphoretic HEENT Reports moist mucous membranes HEENT Narrative: Head is atraumatic and normocephalic. Ears are normal. Nares are patent. Eyes PERRL and EOMs intact bilaterally General Eye ED: Yes pale conjunctiva; Negative for scleral icterus Neck no lymphadenopathy, supple and no JVD Chest Wall Negative for inspection of chest normal Resp normal respiratory effort and clear to auscultation bilaterally Cardio regular rate; Negative for no murmurs Rhythm: abnormal rhythm irregularly irregular Back/Spine Back/Spine Narrative: Patient has a wound mid central back that is triangular-shaped with minimal bleeding. There is a wound left flank area and skin fold that has blood noted. There is no obvious active bleeding. There is also a wound near the right flank area that is not bleeding. Extremity General Extremety ED: Yes edema General Extremity: edema Neuro oriented x3 and CN's II-XII intact bilaterally Sensorium / Orientation: alert Skin Skin Narrative: Documented under the back portion of the EMR MDM MDM MDM Narrative Medical decision making narrative: Patient has wounds that are bleeding. There is no evidence infection i.e. erythema, warmth induration. He has no orthostatic symptoms. He is not tachycardic. In my opinion laboratory testing is not indicated. Nurse will pack the wounds and reapply new dressing and will observe. If there is no obvious significant bleeding he will be discharged to home. Treatment and Re-Evaluation :: Patient's wounds were evaluated. The dressings are dry. Patient expressed that he is not going out of the trip out of state with family. He is by himself. He feels depressed. He is not suicidal. He was referred to the counseling center. Discharge Plan Triage Chief Complaint: Wound ED Provider: Dimitri Swan Dx/Rx/DC Orders Clinical Impression: Bleeding from wound, Anticoagulant long-term use, End-stage renal disease on hemodialysis, Vascular dialysis catheter in place, BMI 40.0-44.9, adult, Depression Instructions: ED Post Op Wound Check, Bleeding Prescriptions: No Action aspirin [Adult Aspirin Regimen] 81 mg tablet,delayed release (DR/EC) 81 mg PO DAILY midodrine 10 mg tablet 10 mg PO TID levothyroxine 25 mcg tablet 25 mcg PO DAILY warfarin 3 mg tablet 6 mg PO DAILY Protocol: Dose Management Condition: Friday Dose/Route: 2.5 mg Instruction: 0.5 x 5 mg tablets Condition: Friday Dose/Route: 2.5 mg Instruction: 0.5 x 5 mg tablets Condition: Friday Dose/Route: 2.5 mg Instruction: 0.5 x 5 mg tablets Condition: Friday Dose/Route: 2.5 mg Instruction: 0.5 x 5 mg tablets Condition: Dose/Route: 2.5 mg Instruction: 0.5 x 5 mg tablets Condition: Friday Dose/Route: 5 mg Instruction: 1 x 5 mg tablet Condition: Friday Dose/Route: 2.5 mg Instruction: 0.5 x 5 mg tablets Protocol Text: Adjustment Start Date: Friday10/01/24 INR Value: 1.3 INR Date: 10/01/24 Recheck Date: 10/06/24 cinacalcet 60 mg tablet 90 mg PO DAILY Juju-Tashi 0.8 mg tablet 1 tab PO DAILY Velphoro 500 mg tablet,chewable 1,500 mg PO TIDCM Patient Comments: CRUSH OR CHEW AND SWALLOW 3 TABLETS 3 TIMES A DAY WITH MEALS oxycodone 5 mg Tablet 5 - 10 mg PO Q6H PRN PRN (Reason: Pain Score 6-10) 7 Days Qty: 42 0RF oxycodone-acetaminophen 5-325 mg tablet 1 tab PO Q6H PRN PRN (Reason: Pain) 3 Days Qty: 12 0RF doxycycline hyclate 100 mg capsule 100 mg PO BID 5 Days Qty: 10 0RF (DME) BP monitor large cuff See Rx Instructions .Route .MEDSUPPLY Qty: 1 0RF Rx Instructions: As directed warfarin 5 mg tablet 5 mg PO DAILY Qty: 90 3RF Protocol: Dose Management Condition: Friday Dose/Route: 2.5 mg Instruction: 0.5 x 5 mg tablets Condition: Friday Dose/Route: 2.5 mg Instruction: 0.5 x 5 mg tablets Condition: Friday Dose/Route: 2.5 mg Instruction: 0.5 x 5 mg tablets Condition: Friday Dose/Route: 2.5 mg Instruction: 0.5 x 5 mg tablets Condition: Dose/Route: 2.5 mg Instruction: 0.5 x 5 mg tablets Condition: Friday Dose/Route: 5 mg Instruction: 1 x 5 mg tablet Condition: Friday Dose/Route: 2.5 mg Instruction: 0.5 x 5 mg tablets Protocol Text: Adjustment Start Date: Friday10/01/24 INR Value: 1.3 INR Date: 10/01/24 Recheck Date: 10/06/24 Primary Care Provider: Care Physician,No Primary Referrals: Counseling,Center [Group of Physicians] - As soon as possible Care Physician,No Primary [Primary Care Provider] - Print Language: Portuguese Disposition Disposition: Home, Self Care
[2025-01-04 23:06] VITALS: BP 116/78
[2025-01-04] MEDS: Acetaminophen 325 MG Tablet 650 MG PO (23:09)
[2025-01-04 23:30] VITALS: BP 116/78; PULSE 79; RESP 16; TEMP 36.8; O2SAT 100
== END 2025-01-04 23:36 | disposition home or self-care (01) ==
PROVIDERS: Emergency Provider Emergency Medicine; Visit Provider Emergency Medicine
DX: S21.209A Unspecified open wound of unspecified back wall of thorax without penetration into thoracic cavity, initial encounter (principal); I12.0 Hypertensive chronic kidney disease with stage 5 chronic kidney disease or end stage renal disease; N18.6 End stage renal disease; I48.0 Paroxysmal atrial fibrillation; E66.01 Morbid (severe) obesity due to excess calories; Z68.41 Body mass index [BMI] 40.0-44.9, adult; S31.109A Unspecified open wound of abdominal wall, unspecified quadrant without penetration into peritoneal cavity, initial encounter; X58.XXXA Exposure to other specified factors, initial encounter; Z99.2 Dependence on renal dialysis; F32.A Depression, unspecified; N25.81 Secondary hyperparathyroidism of renal origin; I95.3 Hypotension of hemodialysis; I25.2 Old myocardial infarction; I34.0 Nonrheumatic mitral (valve) insufficiency; I34.2 Nonrheumatic mitral (valve) stenosis; G47.33 Obstructive sleep apnea (adult) (pediatric); Z95.2 Presence of prosthetic heart valve; Z79.01 Long term (current) use of 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s; Z79.82 Long term (current) use of aspirin; Z86.711 Personal history of pulmonary embolism; Z86.718 Personal history of other venous thrombosis and embolism; Z79.899 Other long term (current) drug therapy
CPT/HCPCS: 99283

== ENCOUNTER 2025-01-13 12:28 | Outpatient (RCR) | payer MEDICARE, SELFPAY ==
[2025-01-04 16:41] LABS: International Normalized Ratio 1.4; Prothrombin Time (Protime)PT. 17.7 SECONDS (11.7-14.9)
[2025-01-13 13:18] LABS: International Normalized Ratio 1.4; Prothrombin Time (Protime)PT. 17.7 SECONDS (11.7-14.9)
== END 2025-01-26 18:00 | disposition home or self-care (01) ==
LOC: LAB 12:28
PROVIDERS: Referring Provider Internal Medicine Cardiovascular Disease; Visit Provider Internal Medicine Cardiovascular Disease
DX: I48.0 Paroxysmal atrial fibrillation (principal)
CPT/HCPCS: 36415; 85610

== ENCOUNTER 2025-02-10 11:43 | Outpatient (RCR) | payer MEDICARE, SELFPAY ==
[2025-02-10 12:28] LABS: Prothrombin Time (Protime)PT. 46.4 SECONDS (11.7-14.9)
[2025-02-10 12:36] LABS: International Normalized Ratio 4.9
[2025-02-10 15:49] LABS: Absolute Lymphocyte Count 0.85 X10^3/uL (0.83-4.51); Absolute Neutrophil Count 5.6 X10^3/uL (2.0-7.7); Basophil# 0.06 X10^3/uL; Basophil% 0.8 % (0-1); Eosinophil# 0.65 X10^3/uL; Eosinophils% 8.2 % (0-5); Hematocrit 26.9 % (40-54); Hemoglobin 8.1 g/dL (13.0-16.5); Lymphocyte # 0.85 X10^3/ul (0.83-4.51); Lymphocyte % 10.7 % (19-41); Mean Corp Hgb Conc 30.1 g/dL (32-36); Mean Corpuscular Volume 96.4 fL (80-94); Mean Platelet Vol. 10.9 fl (6.2-12.0); Monocyte# 0.79 X10^3/uL; Monocyte% 9.9 % (0-10); NRBC Flagged by Analyzer 0 % (0-5); Neutrophil # 5.58 X10^3/uL (2.7-7.7); POSITIVE MORPHOLOGY YES; Platelet Count 262 K/mm3 (150-450); RBC Distribution Width CV 18.6 % (11.6-14.6); RBC Distribution Width SD 65.4 fl (35.1-43.9); Red Blood Count 2.79 M/mm3 (4.6-6.2)
[2025-02-10 15:56] LABS: Differential Indicated SCAN CRITERIA MET
[2025-02-10 18:19] LABS: Anisocytosis 2+; Polychromasia 2+
== END 2025-02-10 18:00 | disposition home or self-care (01) ==
LOC: LAB 11:43
PROVIDERS: Referring Provider Internal Medicine Cardiovascular Disease; Visit Provider Internal Medicine Cardiovascular Disease
DX: Z79.01 Long term (current) use of 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s; D50.0 Iron deficiency anemia secondary to blood loss (chronic); Z95.2 Presence of prosthetic heart valve
CPT/HCPCS: 36415; 85025; 85610

== ENCOUNTER 2025-02-21 17:03 | Inpatient (IN) | payer MEDICARE, SELFPAY ==
[2025-02-21] VITALS (9 sets, daily range): BP systolic 101–167; BP diastolic 78–116; PULSE 95–116; RESP 18–26; TEMP 36.1–36.7; O2SAT 92–100; BMI 39.4; BMI 37.1
--- NOTE | 2025-02-21 17:36 | RAD_ITS ---
PROCEDURE: CHEST PA AND LATERAL 02/21/2025 REASON FOR EXAM: DYSPNEA TECHNIQUE: Frontal and lateral views of the chest. FINDINGS: Hardware: Right-sided central line terminating within the SVC. Heart: Borderline cardiomegaly. Mediastinum: The mediastinal contour is unremarkable. Lungs: Prominent bilateral interstitial markings. No pneumothorax. Bones: Degenerative changes are identified within the thoracic spine. RAD/Chest PA and Lateral IMPRESSION: Borderline cardiomegaly with pulmonary vascular congestion. Reading Location: [facility]
--- NOTE | 2025-02-21 17:36 | EKG12_ITS ---
Test Reason : DYSRHYTHMIA Blood Pressure : */* mmHG Vent. Rate : 111 BPM Atrial Rate : * BPM P-R Int : * ms QRS Dur : 64 ms QT Int : 344 ms P-R-T Axes : * 125 81 degrees QTcB Int : 467 ms SINUS TACH WITH 1ST DEGREE AVB Right axis deviation Pulmonary disease pattern Septal infarct (cited on or before 02-Jul-2019) Abnormal ECG Confirmed by Sean Ruiz ([id number]), editor house organ JOSEPH BRIONES ([id number]) on 02/28/2025 12:59:16 PM Referred By: Confirmed By: Sean Ruiz
--- NOTE | 2025-02-21 17:38 | EX.ED.DYSGE1 ---
HPI History of Present Illness Chief Complaint: Shortness of Breath Informant: patient Onset/Context/Timing Onset: Today Context: Gradual Onset Timing: Continuous Quality: Shortness of breath Location: Chest Worsened by: Exertion Relieved by: Nothing Narrative Narrative: Patient presents with shortness of breath that became worse today. Patient has a history of chronic kidney disease. Patient states he was scheduled to go to dialysis today. Patient states he was having some shortness of breath and was having difficulty getting out of his car when he got to dialysis. Patient states that he was then told to come to the emergency department for patient states that his breathing is worse with any exertion. Patient states that when he got to the emergency department here, he started having some bleeding from his chronic wounds in his back. Patient denies any lightheadedness or dizziness. Patient denies any fevers or chills. 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) Anemia in chronic kidney disease Dyspnea Secondary renal hyperparathyroidism Abdominal wall cellulitis Thrombosis of kidney dialysis arteriovenous graft COVID-19 virus detected (10/02/21) Dental caries Dialysis AV fistula malfunction Postoperative complete heart block (08/21/21) Hypotension of hemodialysis Pain of right lower extremity Medication side effects Chronic ulcer of back Sepsis Non-healing non-surgical wound Daily headache nursing home current use of 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 Mitral valve annular calcification Central retinal artery occlusion of left eye (10/09/20) History of non-ST elevation myocardial infarction (NSTEMI) (11/08/19) 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 History of bacterial endocarditis Mechanical complication of arteriovenous fistula surgically created Obstructive sleep apnea Non compliance w medication regimen Nonrheumatic mitral valve stenosis with insufficiency 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) Atrial flutter with rapid ventricular response (07/2020) Essential (primary) hypertension History of venous thromboembolism History of pulmonary embolus (PE) Bilateral carotid artery stenosis Paroxysmal atrial fibrillation (06/10/20) Unspecified symptoms and signs involving cognitive functions and awareness (04/05/20) 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) Expressive aphasia (04/05/20) ESRD on hemodialysis Dialysis patient Chronic kidney disease-mineral and bone disorder Chronic pelvic pain in male Pelvic mass Hematuria History of blood clots Hearing loss 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 due to renal insufficiency Morbidly obese Home Medications ?Medication ?Instructions ?Recorded ?Last Taken ?Type BP monitor #1 ea 07/17/21 Unknown Rx aspirin 81 mg tablet,delayed 81 mg PO DAILY 10/29/21 02/21/25 History release (Adult Aspirin Regimen) midodrine 10 mg tablet 10 mg PO TID 10/29/21 02/20/25 History sucroferric oxyhydroxide 500 mg 1,500 mg PO TIDCM 11/11/23 02/21/25 History chewable tablet (Velphoro) oxycodone 5 mg tablet 5 - 10 mg (1 - 2 x 5 mg) PO Q6H 11/14/23 02/21/25 Rx PRN PRN Pain Score 6-10 7 days #42 tabs warfarin 5 mg tablet 5 mg PO DAILY #90 tabs 05/07/24 Unknown Rx cinacalcet 60 mg tablet 90 mg PO DAILY 07/30/24 02/20/25 History levothyroxine 25 mcg tablet 25 mcg PO DAILY disorder of 07/30/24 02/21/25 History thyroid gland vitamin B complex-vitamin C-folic 1 tab PO DAILY 07/30/24 02/21/25 History acid 0.8 mg tablet (Juju-Tashi) Allergy/AdvReac Type Severity Reaction Status Date / Time trazodone Allergy Severe Jittery/Sha Verified 02/21/25 17:05 ky gabapentin Allergy Other Verified 02/21/25 17:05 Family History Other Adopted Surgical History Hx of mitral valve replacement with mechanical valve S/P PICC central line placement (06/15/24) History of angioplasty of peripheral vessel (08/28/21) History of tooth extraction, class IV edentulism (09/11/21) History of right and left heart catheterization (08/16/21) Mechanical complication of dialysis catheter History of herniorrhaphy Status post creation of arteriovenous fistula History of cardioversion (12/02/18) History of repair of congenital cleft palate History of left heart catheterization (09/17/18) history of cather replacement Social History household members: none Smoking Status: Never smoker alcohol intake: never substance use type: marijuana what type of physical activity do you participate in: none ROS ROS ED Constitutional Constitutional ED: Denies chills or fever(s) Eyes Eyes: Denies blurry vision or change in vision ENT ENT ED: Denies rhinorrhea or sore throat Cardiovascular Cardiovascular: Reports chest pain; Denies palpitations Respiratory/Chest Respiratory/Chest: Reports dyspnea; Denies cough Gastrointestinal Gastrointestinal: Reports diarrhea; Denies nausea or vomiting Genitourinary Genitourinary ED: Denies dysuria or hematuria Musculoskeletal Musculoskeletal: Reports back pain; Denies neck pain Integumentary Denies abscess or rash Neurologic Neurologic: Reports headache(s); Denies weakness Hematologic/Lymphatic Hematologic/Lymphatic: Reports as per HPI, anemia and easy bleeding Allergic/Immunologic Allergic/Immunologic ED: Denies mouth swelling or urticaria EXAM Physical Exam Const Vital Signs: 02/21/25 17:05 02/21/25 17:12 02/21/25 17:24 Temperature 97 F L 98.1 F Temperature Source Temporal Oral Pulse Rate 95 99 Respiratory Rate 26 H 24 H Respiratory Effort Short of Breath Blood Pressure 128/85 H 158/103 H Blood Pressure Mean 99 121 Pulse Ox 92 97 Oxygen Delivery Method Room Air Room Air 02/21/25 18:12 02/21/25 19:00 02/21/25 20:00 Temperature 98 F 98 F 98 F Temperature Source Oral Oral Oral Pulse Rate 116 H 114 H 111 H Respiratory Rate 24 H 20 H 18 Respiratory Effort Blood Pressure 167/87 H 167/89 H 129/116 H Blood Pressure Mean 113 115 120 Pulse Ox 100 99 99 Oxygen Delivery Method Room Air Room Air Room Air 02/21/25 21:00 02/21/25 22:03 Temperature 98 F 98 F Temperature Source Oral Pulse Rate 109 H 107 H Respiratory Rate 18 20 H Respiratory Effort Blood Pressure 132/112 H 101/86 H Blood Pressure Mean 118 91 Pulse Ox 100 99 Oxygen Delivery Method Room Air Positive well nourished and well developed General Appearance ED: well developed and NAD HEENT Reports moist mucous membranes Neck supple and no JVD Resp normal respiratory effort Auscultation: diminished lung sounds bilateral Cardio regular rate and regular rhythm GI non-tender and non-distended Palpation: soft Neuro oriented x3, CN's II-XII intact bilaterally and no sensory deficits noted Sensorium / Orientation: alert Motor Exam: strength 5/5 throughout Psych mental status grossly normal Skin Skin Narrative: There are open wounds to his back. There are multiple varicose veins. There is a varicose vein that is actively bleeding. Sepsis Attestation Sepsis Alert: Yes Sepsis Attestation: Sepsis Ruled Out (Sepsis was triggered due to the elevated creatinine which is chronic for the patient. Patient has no infectious symptoms.) Sepsis Organ Dysfunction Criteria Present: Creatinine > 2.0 mg/dL (Patient has chronic kidney disease) and INR > 1.5 or aPTT > 60 sec (Patient is on Coumadin) MDM MDM MDM Narrative Medical decision making narrative: Differential diagnosis includes chronic kidney disease, bleeding varicose vein, chronic open wounds, coagulopathy, anemia, congestive heart failure, cardiac dysrhythmia, cardiac ischemia, and anxiety. CBC will be obtained to assess for leukocytosis and anemia. Basic metabolic profile will be obtained to assess for electrolyte abnormality renal function. BNP will be obtained to assess for congestive heart failure. PT with INR and PTT will be obtained to assess for coagulopathy. High-sensitivity troponin T series will be obtained to assess for cardiac ischemia. EKG will be obtained to assess for cardiac dysrhythmia and cardiac ischemia. Chest x-ray will be obtained to assess for pneumonia and congestive heart failure. History & Record Review Additional record(s) reviewed:: Prior inpatient record, Prior outpatient record, Prior ED visit and Prior labs Lab Data Attestation: I reviewed the patient's lab results. Lab results narrative: CBC was reviewed. There is a mild anemia with a hemoglobin of 7.4 and hematocrit 24.6. This is consistent with previous results. PT with INR and PTT were reviewed. Pro time was 28.3 and INR is 2.6. PTT was elevated at 58.4. Basic metabolic profile was reviewed. BUN was elevated at 73 and creatinine was 14.7. CO2 was low at 15.4 and anion gap was elevated at 27. High-sensitivity troponin was reviewed and was elevated at 169. 2-hour repeat high-sensitivity troponin was reviewed and was improving at 163. BNP was reviewed and was elevated at 8025. Labs: Laboratory Results - last 24 hr 02/21/25 02/21/25 02/21/25 18:50 19:07 21:10 WBC 8.8 RBC 2.63 L Hgb 7.4 L Hct 24.6 L MCV 93.5 MCH 28.1 MCHC 30.1 L RDW Std Deviation 62.4 H RDW Coeff of Lance 18.4 H Plt Count 301 MPV 10.2 Immature Gran % (Auto) 0.600 Neut % (Auto) 69.4 Lymph % (Auto) 13.8 L [place] % (Auto) 11.6 H Eos % (Auto) 4.0 Baso % (Auto) 0.6 Absolute Neuts (auto) 6.1 Absolute Lymphs (auto) 1.22 Nucleated RBC % 0 PT 28.3 H INR 2.6 APTT 58.4 H Sodium 140 Potassium 4.9 Chloride 98 Carbon Dioxide 15.4 L Anion Gap 27 H BUN 73 H Creatinine 14.70 H* Estim Creat Clear Calc 8.67 L* Est GFR (MDRD) Non-Af 4 L BUN/Creatinine Ratio 5.0 L Glucose 89 Calcium 8.4 Troponin T High Sens 169 H* Troponin T Hi Sens 2 Hr 163 H* NT pro BNP II 8025 H Radiography Chest X-Ray - ED: 2 View, Read by ED Physician, Read by Radiologist, Cardiomegaly (Borderline EGD) and CHF Diagnostic Testing: Clinical Impression(s) from Imaging Studies Chest X-Ray 02/21/25 17:36 IMPRESSION: Borderline cardiomegaly with pulmonary vascular congestion. Reading Location: [facility] [place] and lateral chest x-ray was obtained. There are 2 views. On my independent interpretation, lung page show pulmonary vascular congestion. There is borderline cardiomegaly. Bony thorax is normal. Radiologist also interpreted the x-ray and agrees. EKG Initial EKG: Interpretation: Sinus Tachycardia (111) and Non-Specific ST Changes Comments: EKG was obtained. On my independent interpretation, it showed a tachycardia with a rate of 111. HI interval, QRS interval, and QTc intervals were all normal. There is borderline right axis deviation at 125. There are nonspecific ST-T wave changes. Prior EKG tracings: available for review Prior: Unchanged (08/11/2024) Management Discussion w/another healthcare provider: Hospitalist Treatment and Re-Evaluation :: The varicose vein on his back was attempted to be cauterized with heat cautery. This was unsuccessful. The area was injected with lidocaine with epinephrine. There is no improvement of the bleeding. The area was cleaned. Several #5-0 Vicryl [id number] sutures were placed around the bleeding sites. There is some improvement of the bleeding. Gelfoam dressing was applied. Patient was bleeding through this. Patient was laid in a prone position. Pressure dressing was applied. Patient was able to lay on his back. Patient had no further bleeding after this. Patient was advised of his findings. Case was discussed with the hospitalist. He will admit the patient to his service. He will get dialysis tomorrow. Patient understood and was agreeable with the plan. All questions were answered. Discharge Plan Dx/Rx/DC Orders Clinical Impression: Dyspnea, ESRD (end stage renal disease), Anemia in chronic kidney disease, General weakness Disposition Disposition: Acute Care Hospital [facility]
--- NOTE | 2025-02-21 18:40 | ED.RN ---
patient back profusely bleeding, going through trauma dressings. Dr. Marques at bedside attempting to suture, cauterize and apply pressure. At this time bleeding controlled
[2025-02-21] MEDS: Ondansetron 4 MG/2 ML Vial IV (18:58)
[2025-02-21] MEDS: Morphine 4 MG/ML Syringe IV ×2 (18:58→21:45)
[2025-02-21 19:00] LABS: Absolute Lymphocyte Count 1.22 X10^3/uL (0.83-4.51); Absolute Neutrophil Count 6.1 X10^3/uL (2.0-7.7); Basophil# 0.05 X10^3/uL; Basophil% 0.6 % (0-1); Eosinophil# 0.35 X10^3/uL; Hematocrit 24.6 % (40-54); Hemoglobin 7.4 g/dL (13.0-16.5); Lymphocyte # 1.22 X10^3/ul (0.83-4.51); Lymphocyte % 13.8 % (19-41); Mean Corp Hgb Conc 30.1 g/dL (32-36); Mean Corpuscular Hgb 28.1 pg (27.0-32.0); Mean Corpuscular Volume 93.5 fL (80-94); Mean Platelet Vol. 10.2 fl (6.2-12.0); Monocyte# 1.02 X10^3/uL; Monocyte% 11.6 % (0-10); NRBC Flagged by Analyzer 0 % (0-5); Neutrophil # 6.12 X10^3/uL (2.7-7.7); Neutrophil % 69.4 % (47-70); Platelet Count 301 K/mm3 (150-450); RBC Distribution Width CV 18.4 % (11.6-14.6); RBC Distribution Width SD 62.4 fl (35.1-43.9); Red Blood Count 2.63 M/mm3 (4.6-6.2); White Blood Count 8.8 K/mm3 (4.4-11.0)
[2025-02-21 19:21] LABS: International Normalized Ratio 2.6; Prothrombin Time (Protime)PT. 28.3 SECONDS (11.7-14.9)
[2025-02-21 19:22] LABS: Partial Thromboplast Time 58.4 Seconds (24.1-36.2)
[2025-02-21 19:23] LABS: Pro- Brain NATRIURETIC PEPTIDE 8025 pg/mL (<=450)
[2025-02-21 19:29] LABS: Anion Gap 27 (5-15); BUN 73 mg/dL (4-19); Calcium,Total 8.4 mg/dL (7.6-11.0); Carbon Dioxide 15.4 mmol/L (21.0-32.0); Chloride 98 mmol/L (98-108); EST Glomerular Filtration Rate 4 (>60); Estimated Creatinine Clearance 8.67 ml/min (50-250); Glucose 89 mg/dL (70-99); Potassium 4.9 mmol/L (3.3-5.1); Sodium Level 140 mmol/L (133-145)
[2025-02-21 21:49] LABS: Troponin T High Sensitivity 169 ng/L (<=22)
[2025-02-21 21:50] LABS: Troponin T High Sens 2 HR 163 ng/L (<=22)
--- NOTE | 2025-02-21 22:05 | PCM.HP.STD ---
[facility] - General General Date of Admission: 02/21/25 Date of Service: 02/21/25 Chief Complaint: Shortness of breath HPI Narrative REJI SPAIN, is a 44 M who presents to the emergency room with chief complaint of shortness of breath. Patient has significant past medical history of end-stage renal disease and is on chronic dialysis Friday. Patient states earlier today he was feeling short of breath and weak and was told he was unable to get assistance getting into his dialysis suite and was instructed to go to the emergency room. Patient also has a chronic wound on his back due to varicose vein that was bleeding in the emergency room and repaired by the emergency room physician and dressing applied. Patient does have some discomfort in that area from the procedure that was done however he he continues to feel fluid overloaded and not recognizes the need for dialysis. Patient denies any chest pain, fever or chills and/or nausea or vomiting. Patient will be admitted for shortness of breath due to fluid volume overload and needing dialysis. 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) Anemia in chronic kidney disease Dyspnea Secondary renal hyperparathyroidism Abdominal wall cellulitis Thrombosis of kidney dialysis arteriovenous graft COVID-19 virus detected (10/02/21) Dental caries Dialysis AV fistula malfunction Postoperative complete heart block (08/21/21) Hypotension of hemodialysis Pain of right lower extremity Medication side effects Chronic ulcer of back Sepsis Non-healing non-surgical wound 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 Mitral valve annular calcification Central retinal artery occlusion of left eye (10/09/20) History of non-ST elevation myocardial infarction (NSTEMI) (11/08/19) 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 History of bacterial endocarditis Mechanical complication of arteriovenous fistula surgically created Obstructive sleep apnea Non compliance w medication regimen Nonrheumatic mitral valve stenosis with insufficiency 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) Atrial flutter with rapid ventricular response (07/2020) Essential (primary) hypertension History of venous thromboembolism History of pulmonary embolus (PE) Bilateral carotid artery stenosis Paroxysmal atrial fibrillation (06/10/20) Unspecified symptoms and signs involving cognitive functions and awareness (04/05/20) 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) Expressive aphasia (04/05/20) ESRD on hemodialysis Dialysis patient Chronic kidney disease-mineral and bone disorder Chronic pelvic pain in male Pelvic mass Hematuria History of blood clots Hearing loss 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 due to renal insufficiency Morbidly obese Home Medications ?Medication ?Instructions ?Recorded ?Last Taken ?Type BP monitor #1 ea 07/17/21 Unknown Rx aspirin 81 mg tablet,delayed 81 mg PO DAILY 10/29/21 02/21/25 History release (Adult Aspirin Regimen) midodrine 10 mg tablet 10 mg PO TID 10/29/21 02/20/25 History sucroferric oxyhydroxide 500 mg 1,500 mg PO TIDCM 11/11/23 02/21/25 History chewable tablet (Velphoro) oxycodone 5 mg tablet 5 - 10 mg (1 - 2 x 5 mg) PO Q6H 11/14/23 02/21/25 Rx PRN PRN Pain Score 6-10 7 days #42 tabs warfarin 5 mg tablet 5 mg PO DAILY #90 tabs 05/07/24 Unknown Rx cinacalcet 60 mg tablet 90 mg PO DAILY 07/30/24 02/20/25 History levothyroxine 25 mcg tablet 25 mcg PO DAILY disorder of 07/30/24 02/21/25 History thyroid gland vitamin B complex-vitamin C-folic 1 tab PO DAILY 07/30/24 02/21/25 History acid 0.8 mg tablet (Juju-Tashi) Allergy/AdvReac Type Severity Reaction Status Date / Time trazodone Allergy Severe Jittery/Sha Verified 02/21/25 17:05 ky gabapentin Allergy Other Verified 02/21/25 17:05 Family History Other Adopted Surgical History Hx of mitral valve replacement with mechanical valve S/P PICC central line placement (06/15/24) History of angioplasty of peripheral vessel (08/28/21) History of tooth extraction, class IV edentulism (09/11/21) History of right and left heart catheterization (08/16/21) Mechanical complication of dialysis catheter History of herniorrhaphy Status post creation of arteriovenous fistula History of cardioversion (12/02/18) History of repair of congenital cleft palate History of left heart catheterization (09/17/18) history of cather replacement Social History household members: none Smoking Status: Never smoker alcohol intake: never substance use type: marijuana what type of physical activity do you participate in: none ROS Constitutional Constitutional: Denies chills or fever(s) Eyes Eyes: Denies blurry vision ENT HEENT: Denies abnormal hearing Cardiovascular Cardiovascular: Denies chest pain Respiratory/Chest Respiratory/Chest: Reports shortness of breath at rest Gastrointestinal Gastrointestinal: Denies abdominal pain Genitourinary Genitourinary: Denies dysuria Musculoskeletal Musculoskeletal: Denies back pain Integumentary Integumentary: Reports wounds Neurologic Neurologic: Denies abnormal speech Psychiatric Psychiatric: Denies anxiety Vital Signs Vital Signs Vital Signs: 02/21/25 17:05 02/21/25 17:12 02/21/25 17:24 Temperature 97 F L 98.1 F Temperature Source Temporal Oral Pulse Rate 95 99 Respiratory Rate 26 H 24 H Respiratory Effort Short of Breath Blood Pressure 128/85 H 158/103 H Blood Pressure Mean 99 121 Pulse Ox 92 97 Oxygen Delivery Method Room Air Room Air 02/21/25 18:12 02/21/25 19:00 02/21/25 20:00 Temperature 98 F 98 F 98 F Temperature Source Oral Oral Oral Pulse Rate 116 H 114 H 111 H Respiratory Rate 24 H 20 H 18 Respiratory Effort Blood Pressure 167/87 H 167/89 H 129/116 H Blood Pressure Mean 113 115 120 Pulse Ox 100 99 99 Oxygen Delivery Method Room Air Room Air Room Air 02/21/25 21:00 02/21/25 22:03 Temperature 98 F 98 F Temperature Source Oral Pulse Rate 109 H 107 H Respiratory Rate 18 20 H Respiratory Effort Blood Pressure 132/112 H 101/86 H Blood Pressure Mean 118 91 Pulse Ox 100 99 Oxygen Delivery Method Room Air Weight Weight: 274 lb 11.135 oz Body Mass Index (BMI) 39.4 Physical Exam Const oriented x3 General Appearance: cooperative and well developed HEENT normocephalic and head/scalp atraumatic Neck no lymphadenopathy Lymph Lymphatic: no lymphadenopathy noted Resp normal respiratory effort, normal air movement and clear to auscultation bilaterally Cardio regular rhythm, S1 normal heart sound and S2 normal heart sound GI normal to inspection, nondistended, normoactive bowel sounds Extremity no calf tenderness Skin Skin Narrative: Upper back wound is now closed and dressed status post suturing in the emergency room Neuro no focal motor deficits and no sensory deficits noted Psych thought process normal, cooperative and affect normal Results Lab / Micro Data 02/21/25 18:50 02/21/25 18:50 Labs: Laboratory Results - last 24 hr 02/21/25 18:50: WBC 8.8, RBC 2.63 L, Hgb 7.4 L, Hct 24.6 L, MCV 93.5, MCH 28.1, MCHC 30.1 L, RDW Std Deviation 62.4 H, RDW Coeff of Lance 18.4 H, Plt Count 301, MPV 10.2, Immature Gran % (Auto) 0.600, Neut % (Auto) 69.4, Lymph % (Auto) 13.8 L, [place] % (Auto) 11.6 H, Eos % (Auto) 4.0, Baso % (Auto) 0.6, Absolute Neuts (auto) 6.1, Absolute Lymphs (auto) 1.22, Nucleated RBC % 0, Sodium 140, Potassium 4.9, Chloride 98, Carbon Dioxide 15.4 L, Anion Gap 27 H, BUN 73 H, Creatinine 14.70 H*, Estim Creat Clear Calc 8.67 L*, Est GFR (MDRD) Non-Af 4 L, BUN/Creatinine Ratio 5.0 L, Glucose 89, Calcium 8.4, Troponin T High Sens 169 H*, NT pro BNP II 8025 H 02/21/25 19:07: PT 28.3 H, INR 2.6, APTT 58.4 H 02/21/25 21:10: Troponin T Hi Sens 2 Hr 163 H* Imaging Radiology Impression Chest X-Ray 02/21/25 17:36 IMPRESSION: Borderline cardiomegaly with pulmonary vascular congestion. [facility] Assessment & Plan Assessment/Plan (1) General weakness: (2) ESRD (end stage renal disease): (3) Hx of mitral valve replacement with mechanical valve: PLAN: Plan 1 end-stage renal disease, shortness of breath?admit patient to general medical floor, consult Dr. Melendez for dialysis as patient is overdue for treatment. Repeat CBC BMP in the a.m. 2. Upper back wound?this was sutured, cauterized in the emergency room with dressing applied will recommend daily dressing change 3. History of mitral valve with mechanical valve replacement?monitor INR 4. DVT prophylaxis?patient is anticoagulated Charges/Coding Visit Charges Inpatient E&M: 14366 Init Hosp L2
[2025-02-21 22:39] LABS: Lactic Acid 2.2 mmol/L (0.0-2.0)
[2025-02-22] VITALS (21 sets, daily range): BP systolic 100–263; BP diastolic 47–103; PULSE 79–115; RESP 14–18; TEMP 36.5–37; O2SAT 93–100; BMI 37.0; BMI 35.6
[2025-02-22] MEDS: oxyCODONE 5 MG Tablet PO ×3 (00:17→14:33)
[2025-02-22 00:25] LABS: Troponin T High Sens 4 HR 164 ng/L (<=22)
[2025-02-22 02:11] LABS: Reflex Lactate? Y
[2025-02-22 02:55] LABS: Absolute Lymphocyte Count 0.83 X10^3/uL (0.83-4.51); Absolute Neutrophil Count 6.3 X10^3/uL (2.0-7.7); Basophil# 0.04 X10^3/uL; Basophil% 0.5 % (0-1); Eosinophil# 0.36 X10^3/uL; Eosinophils% 4.2 % (0-5); Hematocrit 20.8 % (40-54); Hemoglobin 6.3 g/dL (13.0-16.5); Lymphocyte # 0.83 X10^3/ul (0.83-4.51); Lymphocyte % 9.7 % (19-41); Mean Corp Hgb Conc 30.3 g/dL (32-36); Mean Corpuscular Hgb 28.1 pg (27.0-32.0); Mean Corpuscular Volume 92.9 fL (80-94); Mean Platelet Vol. 10.5 fl (6.2-12.0); Monocyte# 0.98 X10^3/uL; Monocyte% 11.4 % (0-10); NRBC Flagged by Analyzer 0 % (0-5); Neutrophil # 6.33 X10^3/uL (2.7-7.7); Neutrophil % 73.8 % (47-70); Platelet Count 260 K/mm3 (150-450); RBC Distribution Width CV 18.1 % (11.6-14.6); RBC Distribution Width SD 61.4 fl (35.1-43.9); Red Blood Count 2.24 M/mm3 (4.6-6.2); White Blood Count 8.6 K/mm3 (4.4-11.0)
[2025-02-22 03:08] LABS: International Normalized Ratio 2.7; Prothrombin Time (Protime)PT. 29.1 SECONDS (11.7-14.9)
[2025-02-22 03:25] LABS: Lactic Acid 2.1 mmol/L (0.0-2.0)
[2025-02-22 03:26] LABS: Anion Gap 25 (5-15); BUN 76 mg/dL (4-19); BUN/Creat Ratio 5.2 RATIO (10-20); Calcium,Total 7.9 mg/dL (7.6-11.0); Carbon Dioxide 16.2 mmol/L (21.0-32.0); Chloride 97 mmol/L (98-108); EST Glomerular Filtration Rate 4 (>60); Glucose 82 mg/dL (70-99); Potassium 5.2 mmol/L (3.3-5.1); Sodium Level 138 mmol/L (133-145)
[2025-02-22] MEDS: Levothyroxine 25 MCG TABLET PO (06:42)
[2025-02-22] MEDS: Midodrine HCl 5 MG Tablet 10 MG PO ×2 (06:42→14:10)
[2025-02-22] MEDS: PureFlow B 2K Dialysis Soln 1 BAG 6 BAG PF (08:53)
[2025-02-22] MEDS: Heparin 10,000 UNITS/10 ML Vial IV (08:53)
[2025-02-22] MEDS: 0.9% Saline Lock 10 ML Syringe IV (08:53)
[2025-02-22] MEDS: 0.9% Normal Saline 1,000 ML IV.SOLN. 1000 ML OPERA.SITE (08:53)
[2025-02-22] MEDS: 0.9% Normal Saline (250mL Bag) 250 ML 15 ML IV (09:11)
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
--- NOTE | 2025-02-22 11:19 | WOUNDNOTE ---
Pt is currently getting dialysis treatment. will assess wounds after dialysis. pt resting in bed with eyes closed.
--- NOTE | 2025-02-22 11:36 | PCM.PN.HOSP ---
Reason for Visit Reason for Visit: Diagnoses End stage renal disease (02/21/25) Weakness (02/21/25) Presence of prosthetic heart valve (02/21/25) Subjective Subjective Saw patient at bedside this morning. Patient was having dialysis done when I saw him. He was fatigued appearing but otherwise laying back comfortably in bed and in no acute distress. Denied any acute pain or discomfort this morning. Denied any shortness of breath at rest. States that he does feel more fatigued than his normal. No other new concerns today. Objective Data Objective Data Vital Signs: Vital Signs Temp Pulse Resp BP Pulse Ox O2 Del Method 97.8 F 89 14 111/68 97 Room Air 02/22/25 08:57 02/22/25 11:00 02/22/25 08:57 02/22/25 11:00 02/22/25 08:57 02/22/25 08:57 Oxygen Delivery Method Room Air Weight: 117.4 kg Body Mass Index (BMI) 37.0 Lab / Micro Data 02/22/25 02:44 02/22/25 02:44 Labs: Laboratory Results - last 24 hr 02/21/25 18:50: WBC 8.8, RBC 2.63 L, Hgb 7.4 L, Hct 24.6 L, MCV 93.5, MCH 28.1, MCHC 30.1 L, RDW Std Deviation 62.4 H, RDW Coeff of Lance 18.4 H, Plt Count 301, MPV 10.2, Immature Gran % (Auto) 0.600, Neut % (Auto) 69.4, Lymph % (Auto) 13.8 L, [place] % (Auto) 11.6 H, Eos % (Auto) 4.0, Baso % (Auto) 0.6, Absolute Neuts (auto) 6.1, Absolute Lymphs (auto) 1.22, Nucleated RBC % 0, Sodium 140, Potassium 4.9, Chloride 98, Carbon Dioxide 15.4 L, Anion Gap 27 H, BUN 73 H, Creatinine 14.70 H*, Estim Creat Clear Calc 8.67 L*, Est GFR (MDRD) Non-Af 4 L, BUN/Creatinine Ratio 5.0 L, Glucose 89, Calcium 8.4, Troponin T High Sens 169 H*, NT pro BNP II 8025 H 02/21/25 19:07: PT 28.3 H, INR 2.6, APTT 58.4 H 02/21/25 21:10: Troponin T Hi Sens 2 Hr 163 H* 02/21/25 22:00: Lactic Acid 2.2 H* 02/21/25 23:37: Troponin T Hi Sens 4Hr 164 H* 02/22/25 02:44: WBC 8.6, RBC 2.24 L, Hgb 6.3 L, Hct 20.8 L, MCV 92.9, MCH 28.1, MCHC 30.3 L, RDW Std Deviation 61.4 H, RDW Coeff of Lance 18.1 H, Plt Count 260, MPV 10.5, Immature Gran % (Auto) 0.400, Neut % (Auto) 73.8 H, Lymph % (Auto) 9.7 L, [place] % (Auto) 11.4 H, Eos % (Auto) 4.2, Baso % (Auto) 0.5, Absolute Neuts (auto) 6.3, Absolute Lymphs (auto) 0.83, Nucleated RBC % 0, PT 29.1 H, INR 2.7, Sodium 138, Potassium 5.2 H, Chloride 97 L, Carbon Dioxide 16.2 L, Anion Gap 25 H, BUN 76 H, Creatinine 14.70 H*, Estim Creat Clear Calc 8.40 L*, Est GFR (MDRD) Non-Af 4 L, BUN/Creatinine Ratio 5.2 L, Glucose 82, Lactic Acid 2.1 H*, Calcium 7.9 Radiography Diagnostic Testing: Radiology Impression Chest X-Ray 02/21/25 17:36 IMPRESSION: Borderline cardiomegaly with pulmonary vascular congestion. Reading Location: [facility] Physical Exam Const alert, oriented x3 and no apparent distress Constitutional Narrative: Younger middle-aged male, appears older than stated age, class II obesity, fatigued appearing but otherwise sitting back comfortably in bed, answering questions appropriately, in no acute distress. General Appearance: cooperative and comfortable HEENT normocephalic, head/scalp atraumatic, hearing grossly normal bilaterally, nasal mucous membranes and turbinates normal and moist oral mucous membranes HEENT Narrative: Poor dentition. Eyes PERRL, EOMs intact bilaterally and conjunctivae normal Neck full ROM Chest inspection of chest normal Resp normal respiratory effort and no use of accessory muscles Resp Narrative: Breathing comfortably on room air at rest. Mild crackles noted in bilateral lung bases, otherwise good air movement throughout with no wheezing noted. Cardio regular rate, regular rhythm, no murmurs and peripheral pulses 2+ throughout GI normal to inspection, nondistended, normoactive bowel sounds, soft to palpation, non-tender and non-distended Back/Spine normal ROM Extremity normal to inspection, full ROM and no pedal edema Skin no rashes or lesions noted Psych mental status grossly normal Assessment & Plan Assessment/Plan (1) Anemia in chronic kidney disease: (2) General weakness: PLAN: Plan Patient is a 44-year-old male who presented to [facility] ED on 02/21/2025 with worsening shortness of breath and weakness. 1. ESRD on HD with mild volume overload ? Nephrology following. On HD MWF, has been compliant with dialysis sessions. Mild shortness of breath on exertion on admit likely multifactorial from mild volume overload and slightly worsened anemia as noted below. Completed HD session on 02/22 and will plan for HD session on 02/23 as well, with likely discharge home after this. Continue home Cinacalcet, Velphoro and midodrine. 2. Acute on chronic anemia ? Hemoglobin 7.4 on admit, dropped to 6.3 on hospital day 2. Chronic anemia secondary to renal disease. Presume that slight worsening is secondary to bleeding from upper back wound as noted below. Will give 1 unit of blood today and repeat hemoglobin tomorrow. 3. Generalized weakness ? PT/OT/case management following. Appreciate therapy recommendations. 4. Upper back wound ? Has chronic back wound due to varicose vein that was bleeding in the ED and repaired by ED physician with dressing applied. Stable. 5. Paroxysmal A-fib on warfarin ? Stable in normal sinus rhythm on admit. INR 2.6 on admit, at goal. Continue home warfarin. Not on rate controlling agent. 6. Hypothyroidism ? Continue home Synthroid. 7. Class II obesity ? BMI 35 on admit. Complicates hospital course, care and prognosis. DVT prophylaxis: Not indicated, on warfarin CODE STATUS: Full code, verified Expected disposition: Home, 1 to 2 days Total clinical time spent by myself addressing the patient's medical issues, reviewing all the data, and collaborating with patient's care team: 35 minutes. Charges/Coding Visit Charges Inpatient E&M: 76058 Subs Hosp L2
--- NOTE | 2025-02-22 12:41 | CASEMGMT ---
RN CM NOTE: RN CM to room to complete initial RN CM assessment. Pt is receiving HD and is sound asleep. RN CM to complete assessment at a later time. Sandra COXN RN CM
--- NOTE | 2025-02-22 14:05 | CASEMGMT ---
RN SOHEILA FANCY WIRE DRAWER CM to room to meet with patient for initial transition planning/care coordination assessment. RACHEL PARNELL introduced self and role at [facility]. Pt voices understanding and consents to assessment at this time. Pt sitting up in chair in room in no distress at this time. Pt is A/O at this time and answers all questions appropriately. Care providers, pharmacy, and demographics verified/updated at this time. Strata: 3 PCP: Dr Ro Francisco [place] Specialists: Dr Melendez--nephrology. Dr Velazquez @ [facility] for wound care. Dialysis: MWF @ [facility]. Chair time 0830. Preferred Pharmacy: [facility] Insurance: [employer]. Pt states he is in the process of applying for AIDEN for him again, stating he used to have it, but does not have currently. Prescription Benefit: Yes LNOK: , [place] Living Arrangements: Lives w/his and 2 children, ages 10 and 1, in a one-story home w/basement, with 2-3 steps to enter, depending on what entrance he uses. Pt states they are difficult sometimes and he needs assistance getting up them, stating his can assist. Pt independent w/ADL's. is currently working 2 jobs & has not been able to do much in the home. Pt tries to help when he is able. gets groceries or they order on-line. Financial concerns: Pt states is working 2 jobs to help them stay afloat. He voices financial concerns re: cost of medications and medical bills/co-pays. He also inquired if he could get an aide to help in the home, such as for cooking and cleaning, stating, It's bad around my house and I need assistance. Mireya CLEVELAND, made aware of above stated concerns/comments. Transportation: Pt states drives self and states no transportation concerns at this time. His also drives. Pt states he drives himself to dialysis appts, but states he is having difficulty as he needs help getting in/out. He states he uses to use [facility], but not currently. DME: States has the following DME: CPAP, but it is not currently working. He does not have home O2. He has a cane and a walker which he uses on occasion. Pt states no need for further DME at this time. HHC/SNF: Pt states he was @ [facility] in [place] this year and then had HHC afterwards, but they discharged him after finding out he took his child to school, as he was no longer homebound. He states he was not aware of that being an issue and states it is difficult to get in/out of a vehicle to go places, but states he was trying to help his , as she is working so much and so he was doing his best to try and help her. RN SOHEILA reinforced that this is [facility]'s rule and questions answered. Discussed discharge planning. Pt voices concern over financial situation and cost of SNF, if needed. He also states is concerned about qualify of care @ a SNF, as he did not have a good experience @ [facility]. Therapy evals pending. CM to follow for any further discharge planning/needs. Pt voices no further concerns/needs at this time. Advised pt to ask for CM if any further questions/concerns/needs arise. Voices understanding. PLAN: TBD, pending therapy evals. Follow for possible SNF or HHC, if he would qualify. Follow for any wound care needs @ [place]. SW to meet with pt for resources, financial concerns. Sandra KENNEDY RN, CM
[2025-02-22] MEDS: Aspirin E.C. 81 MG Tablet PO (14:09)
[2025-02-22] MEDS: Cinacalcet HCl 30 MG Tablet 90 MG PO (14:10)
[2025-02-22] MEDS: Folic Acid/Vitamin B Comp W-C 1 Capsule 1 CAP PO (14:10)
--- NOTE | 2025-02-22 14:37 | CON.PCM.RE_ITS ---
Assessment & Plan Assessment/Plan (1) ESRD (end stage renal disease): (2) Anemia in chronic kidney disease: PLAN: Plan 44-year-old male with past medical history significant for ESRD on hemodialysis, patient underwent hemodialysis today with fluid removal. Will plan for hemodialysis again tomorrow and attempt fluid removal as patient/blood pressure tolerates. Hospital admission weight around 117 kg. Outpatient EDW around 110kg. Patient has history of hypotension and receives midodrine. Will continue midodrine as ordered. Patient has history of anemia of chronic disease as well as bleeding wounds, his hemoglobin is low, patient to receive PRBC today. Patient also receives ANABELLA and iron at kidney center. Further orders forthcoming as hospitalization evolves. HPI Consult Data Date of Consult: 02/22/25 HPI Narrative HPI Narrative: REJI SPAIN, is a 44 M with past medical history significant for ESRD who is on hemodialysis Friday at [facility] who presented to the emergency room yesterday with complaints of shortness of breath. Chest x-ray in emergency room showed pulmonary vascular congestion, hemoglobin 7.4. Patient admitted for further evaluation and treatment. Nephrology consulted in view of history of ESRD and for dialysis management. Patient underwent hemodialysis today. He is complaining of feeling tired. Denies any chest pain. 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) Anemia in chronic kidney disease Dyspnea Secondary renal hyperparathyroidism Abdominal wall cellulitis Thrombosis of kidney dialysis arteriovenous graft COVID-19 virus detected (10/02/21) Dental caries Dialysis AV fistula malfunction Postoperative complete heart block (08/21/21) Hypotension of hemodialysis Pain of right lower extremity Medication side effects Chronic ulcer of back Sepsis Non-healing non-surgical wound Daily headache group home current use of 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 Mitral valve annular calcification Central retinal artery occlusion of left eye (10/09/20) History of non-ST elevation myocardial infarction (NSTEMI) (11/08/19) 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 History of bacterial endocarditis Mechanical complication of arteriovenous fistula surgically created Obstructive sleep apnea Non compliance w medication regimen Nonrheumatic mitral valve stenosis with insufficiency 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) Atrial flutter with rapid ventricular response (07/2020) Essential (primary) hypertension History of venous thromboembolism History of pulmonary embolus (PE) Bilateral carotid artery stenosis Paroxysmal atrial fibrillation (06/10/20) Unspecified symptoms and signs involving cognitive functions and awareness (04/05/20) 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) Expressive aphasia (04/05/20) ESRD on hemodialysis Dialysis patient Chronic kidney disease-mineral and bone disorder Chronic pelvic pain in male Pelvic mass Hematuria History of blood clots Hearing loss 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 due to renal insufficiency Morbidly obese Home Medications ?Medication ?Instructions ?Recorded ?Last Taken ?Type BP monitor #1 ea 07/17/21 Unknown Rx aspirin 81 mg tablet,delayed 81 mg PO DAILY 10/29/21 0 02/21/25 History release (Adult Aspirin Regimen) midodrine 10 mg tablet 10 mg PO TID 10/29/21 History sucroferric oxyhydroxide 500 mg 1,500 mg PO TIDCM 10/3002/21/25 History chewable tablet (Velphoro) oxycodone 5 mg tablet 5 - 10 mg (1 - 2 x 5 mg) PO Q6H 11/14/23 02/21/25 Rx PRN PRN Pain Score 6-10 7 days #42 tabs warfarin 5 mg tablet 5 mg PO DAILY #90 tabs 05/07 Unknown Rx cinacalcet 60 mg tablet 90 mg PO DAILY 07/30/2401/28 History levothyroxine 25 mcg tablet 25 mcg PO DAILY disorder o f 07/30/24 02/21/25 History thyroid gland vitamin B complex-vitamin C-folic 1 tab PO DAILY 07/3002/21/25 History acid 0.8 mg tablet (Juju-Tashi) Allergy/AdvReac Type Severity Reaction Status Date / Time trazodone Allergy Severe Jittery/Sha Verified 02/21/25 17:05 ky gabapentin Allergy Other Verified 02/21/25 17:05 Family History Other Adopted Surgical History Hx of mitral valve replacement with mechanical valve S/P PICC central line placement (06/15/24) History of angioplasty of peripheral vessel (08/28/21) History of tooth extraction, class IV edentulism (09/11/21) History of right and left heart catheterization (08/16/21) Mechanical complication of dialysis catheter History of herniorrhaphy Status post creation of arteriovenous fistula History of cardioversion (12/02/18) History of repair of congenital cleft palate History of left heart catheterization (09/17/18) history of cather replacement Social History household members: none Smoking Status: Never smoker alcohol intake: never substance use type: marijuana what type of physical activity do you participate in: none ROS ROS Narrative As in HPI Physical Exam Narrative Alert and oriented x 3, no apparent distress S1, S2, RRR Lung sounds clear anteriorly and posteriorly no rales or rhonchi Abdomen soft, rounded, nontender Edema bilateral lower legs Tunneled hemodialysis catheter dressing clean, dry and intact Lab / Micro Data 02/22/25 02:44 02/22/25 02:44 Labs: Laboratory Results - last 24 hr 02/21/25 18:50: WBC 8.8, RBC 2.63 L, Hgb 7.4 L, Hct 24.6 L, MCV 93.5, MCH 28.1, MCHC 30.1 L, RDW Std Deviation 62.4 H, RDW Coeff of Lance 18.4 H, Plt Count 301, MPV 10.2, Immature Gran % (Auto) 0.600, Neut % (Auto) 69.4, Lymph % (Auto) 13.8 L, [place] % (Auto) 11.6 H, Eos % (Auto) 4.0, Baso % (Auto) 0.6, Absolute Neuts (auto) 6.1, Absolute Lymphs (auto) 1.22, Nucleated RBC % 0, Sodium 140, Potassium 4.9, Chloride 98, Carbon Dioxide 15.4 L, Anion Gap 27 H, BUN 73 H, C reatinine 14.70 H*, Estim Creat Clear Calc 8.67 L*, Est GFR (MDRD) Non-Af 4 L, B UN/Creatinine Ratio 5.0 L, Glucose 89, Calcium 8.4, Troponin T High Sens 169 H*, NT pro BNP II 8025 H 02/21/25 19:07: PT 28.3 H, INR 2.6, APTT 58.4 H 02/21/25 21:10: Troponin T Hi Sens 2 Hr 163 H* 02/21/25 22:00: Lactic Acid 2.2 H* 02/21/25 23:37: Troponin T Hi Sens 4Hr 164 H* 02/22/25 02:44: WBC 8.6, RBC 2.24 L, Hgb 6.3 L, Hct 20.8 L, MCV 92.9, MCH 28.1, MCHC 30.3 L, RDW Std Deviation 61.4 H, RDW Coeff of Lance 18.1 H, Plt Count 260, MPV 10.5, Immature Gran % (Auto) 0.400, Neut % (Auto) 73.8 H, Lymph % (Auto) 9.7 L, [place] % (Auto) 11.4 H, Eos % (Auto) 4.2, Baso % (Auto) 0.5, Absolute Neuts (auto) 6.3, Absolute Lymphs (auto) 0.83, Nucleated RBC % 0, PT 29.1 H, INR 2.7, Sodium 138, Potassium 5.2 H, Chloride 97 L, Carbon Dioxide 16.2 L, Anion Gap 25 H, BUN 76 H, Creatinine 14.70 H*, Estim Creat Clear Calc 8.40 L*, Est GFR (MDRD) Non-Af 4 L, BUN/Creatinine Ratio 5.2 L, Glucose 82, Lactic Acid 2.1 H*, Calcium 7.9 02/22/25 11:37: Blood Type B POSITIVE, Antibody Screen NEGATIVE, Crossmatch See Detail Imaging Radiology Impression Chest X-Ray 02/21/25 17:36 IMPRESSION: Borderline cardiomegaly with pulmonary vascular congestion. Reading [facility]
--- NOTE | 2025-02-22 15:42 | WOUNDNOTE ---
wound photo: left lower abdomen
--- NOTE | 2025-02-22 15:43 | WOUNDNOTE ---
wound photo: back
--- NOTE | 2025-02-22 16:27 | NURSING ---
One unit of PRBCs was ordered for pt. Dialysis nurse had planned on giving blood during dialysis, but blood was not ready in the blood bank until after dialysis was completed. This RN went to pt room once pt was finished with dialysis to prepare blood administration. Upon checking IV access, it was noted that the only IV pt had was a 24 gauge. This RN talked to charge nurse, Luz, and Lzu was calling an employee to insert an IV with ultrasound d/t poor IV access. Blood will be given once ultrasound guided IV is inserted.
[2025-02-22] MEDS: SEVELAMER CARBONATE 800 MG TABLET 3200 MG PO (17:00)
[2025-02-23] VITALS (20 sets, daily range): BP systolic 98–235; BP diastolic 55–84; PULSE 75–111; RESP 12–18; TEMP 36.4–37.1; O2SAT 93–100; BMI 35.6; BMI 34.7
[2025-02-23] MEDS: oxyCODONE 5 MG Tablet PO ×4 (00:15→22:02)
[2025-02-23] MEDS: MELATONIN 10 MG TABLET 5 MG PO ×2 (00:15→23:15)
[2025-02-23] MEDS: Midodrine HCl 5 MG Tablet 10 MG PO ×4 (00:15→22:02)
[2025-02-23] MEDS: Levothyroxine 25 MCG TABLET PO (06:23)
[2025-02-23 06:28] LABS: Hematocrit 20.1 % (40-54); Hemoglobin 6.2 g/dL (13.0-16.5); Mean Corp Hgb Conc 30.8 g/dL (32-36); Mean Corpuscular Hgb 27.8 pg (27.0-32.0); Mean Corpuscular Volume 90.1 fL (80-94); Mean Platelet Vol. 10.2 fl (6.2-12.0); Platelet Count 251 K/mm3 (150-450); RBC Distribution Width SD 60.1 fl (35.1-43.9); Red Blood Count 2.23 M/mm3 (4.6-6.2); White Blood Count 7.1 K/mm3 (4.4-11.0)
[2025-02-23 06:58] LABS: Anion Gap 16 (5-15); BUN 55 mg/dL (4-19); BUN/Creat Ratio 5.1 RATIO (10-20); Calcium,Total 7.5 mg/dL (7.6-11.0); Chloride 98 mmol/L (98-108); EST Glomerular Filtration Rate 6 (>60); Estimated Creatinine Clearance 11.43 ml/min (50-250); Glucose 95 mg/dL (70-99); Potassium 5.3 mmol/L (3.3-5.1); Sodium Level 135 mmol/L (133-145)
[2025-02-23] MEDS: PureFlow B 2K Dialysis Soln 1 BAG 6 BAG PF (10:42)
[2025-02-23] MEDS: 0.9% Normal Saline 1,000 ML IV.SOLN. 1000 ML OPERA.SITE (10:42)
[2025-02-23] MEDS: 0.9% Saline Lock 10 ML Syringe IV ×2 (10:43→22:02)
[2025-02-23] MEDS: Heparin 10,000 UNITS/10 ML Vial IV (10:45)
[2025-02-23 12:59] LABS: Hematocrit 27.6 % (40-54); Hemoglobin 8.8 g/dL (13.0-16.5); Mean Corp Hgb Conc 31.9 g/dL (32-36); Mean Corpuscular Hgb 29.3 pg (27.0-32.0); Mean Platelet Vol. 10.5 fl (6.2-12.0); Platelet Count 245 K/mm3 (150-450); RBC Distribution Width CV 17.3 % (11.6-14.6); RBC Distribution Width SD 58.4 fl (35.1-43.9); White Blood Count 8.1 K/mm3 (4.4-11.0)
--- NOTE | 2025-02-23 13:01 | PCM.PN.REN ---
Subjective Subjective seen on HD today Objective Data Objective Data Vital Signs: Vital Signs Temp Pulse Resp BP Pulse Ox O2 Del Method O2 Flow Rate 97.8 F 76 14 141/66 H 97 Room Air 2 02/23/25 12:22 02/23/25 12:22 02/23/25 12:22 02/23/25 12:22 02/23/25 12:22 02/23/25 12:22 02/22/25 15:40 Oxygen Flow Rate (L/min) 2 Oxygen Delivery Method Room Air Weight: 110 kg Body Mass Index (BMI) 34.7 Intake & Output: Intake and Output for Last 24 Hours 02/21/25 02/22/25 02/23/25 23:59 23:59 23:59 Intake Total 475 / 475 900 / 900 Output Total 4630 / 4630 3560 / 3560 Balance -4155 / -4155 -2660 / -2660 Lab / Micro Data 02/23/25 12:50 02/23/25 06:08 Labs: Laboratory Results - last 24 hr 02/22/25 11:37: Blood Type B POSITIVE, Antibody Screen NEGATIVE, Crossmatch See Detail 02/22/25 11:37: Crossmatch See Detail 02/22/25 11:37: Crossmatch See Detail 02/23/25 06:08: WBC 7.1, RBC 2.23 L, Hgb 6.2 L, Hct 20.1 L, MCV 90.1, MCH 27.8, MCHC 30.8 L, RDW Std Deviation 60.1 H, RDW Coeff of Lance 18.0 H, Plt Count 251, MPV 10.2, Sodium 135, Potassium 5.3 H, Chloride 98, Carbon Dioxide 20.0 L, Anion Gap 16 H, BUN 55 H, Creatinine 10.60 H*, Estim Creat Clear Calc 11.43 L, Est GFR (MDRD) Non-Af 6 L, BUN/Creatinine Ratio 5.1 L, Glucose 95, Calcium 7.5 L 02/23/25 12:50: WBC 8.1, RBC 3.00 L, Hgb 8.8 L, Hct 27.6 L, MCV 92.0, MCH 29.3, MCHC 31.9 L, RDW Std Deviation 58.4 H, RDW Coeff of Lance 17.3 H, Plt Count 245, MPV 10.5 Physical Exam Narrative Alert and oriented x 3, no apparent distress S1, S2, RRR Lung sounds clear anteriorly and posteriorly no rales or rhonchi Abdomen soft, rounded, nontender Edema bilateral lower legs Tunneled hemodialysis catheter dressing clean, dry and intact Assessment & Plan Assessment/Plan (1) ESRD (end stage renal disease): (2) Anemia in chronic kidney disease: PLAN: Plan 44-year-old male with past medical history significant for ESRD on hemodialysis, ESRD. HD today. seen on HD. c/o being cold. breathing is ok Anemia. PRBC today with HD
[2025-02-23] MEDS: Aspirin E.C. 81 MG Tablet PO (13:59)
[2025-02-23] MEDS: Cinacalcet HCl 30 MG Tablet 90 MG PO (13:59)
[2025-02-23] MEDS: Folic Acid/Vitamin B Comp W-C 1 Capsule 1 CAP PO (13:59)
[2025-02-23] MEDS: SEVELAMER CARBONATE 800 MG TABLET 3200 MG PO ×2 (14:00→17:42)
--- NOTE | 2025-02-23 14:30 | WOUNDNOTE ---
wound photo: right chest
--- NOTE | 2025-02-23 15:00 | PCM.DC.SUM ---
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 Routine Comment: Reason for Consult:: multiple wounds on back, chest, abdomen, bilateral legs Reason For Visit: END STAGE RENAL DISEASE, GENERALIZED WEAKNESS Diagnosis Discharge Diagnosis (1) ESRD (end stage renal disease): Status: Acute Code(s): N18.6 - End stage renal disease (2) Anemia in chronic kidney disease: Status: Chronic Code(s): N18.9 - Chronic kidney disease, unspecified; D63.1 - Anemia in chronic kidney disease Medications at Discharge Home Medications BP monitor #1 ea 07/17/21 aspirin 81 mg tablet,delayed release (Adult Aspirin Regimen) 81 mg PO DAILY 10/29/21 midodrine 10 mg tablet 10 mg PO TID 10/29/21 sucroferric oxyhydroxide 500 mg chewable tablet (Velphoro) 1,500 mg PO TIDCM 11/11/23 warfarin 5 mg tablet 5 mg PO DAILY #90 tabs 05/07/24 cinacalcet 60 mg tablet 90 mg PO DAILY 07/30/24 levothyroxine 25 mcg tablet 25 mcg PO DAILY disorder of thyroid gland 07/30/24 vitamin B complex-vitamin C-folic acid 0.8 mg tablet (Juju-Tashi) 1 tab PO DAILY 07/30/24 Hospital Course Operations None Procedures Blood transfusion, Dialysis and - (Chest x-ray) Summary of Care Provided Minutes Spent on Discharge: 35 Hospital Course: Patient is a 44-year-old male who presented to [facility] ED on 02/21/2025 with worsening shortness of breath and weakness. Hospital course as noted below. Patient discharged home in stable condition on 02/15. 1. ESRD on HD with mild volume overload ? Nephrology followed. On HD MWF, has been compliant with dialysis sessions. Mild shortness of breath on exertion on admit likely multifactorial from mild volume overload and slightly worsened anemia as noted below. Completed HD sessions on 02/22 and 02/23 with significant volume removal. Stable for discharge home on 02/23 with resumption of dialysis per typical schedule this Friday. Continue home Cinacalcet, Velphoro and midodrine. 2. Acute on chronic anemia ? Hemoglobin 7.4 on admit, dropped to 6.3 on hospital day 2. Chronic anemia secondary to renal disease. Presume that worsening is secondary to bleeding from upper back wound as noted below. Gave 1 unit of blood on 02/22 but repeat hemoglobin remained at 6.2. Given another 2 units of blood on 02/23 with improvement to 8.8. Recommend repeat CBC in 5 to 7 days to ensure hemoglobin remained stable. 3. Generalized weakness ? PT/OT/case management followed. Stable for discharge home with no therapy needs. 4. Upper back wound ? Has chronic back wound due to varicose vein that was bleeding in the ED and repaired by ED physician with dressing applied. Stable. 5. Paroxysmal A-fib on warfarin ? Stable in normal sinus rhythm on admit. INR 2.6 on admit, at goal. Continue home warfarin. Not on rate controlling agent. 6. Hypothyroidism ? Continue home Synthroid. 7. Class II obesity ? BMI 35 on admit. Complicated hospital course, care and prognosis. Total clinical time spent by myself addressing the patient's medical issues, reviewing all the data, and collaborating with patient's care team: 35 minutes. Physical Exam Const alert, oriented x3 and no apparent distress Constitutional Narrative: Younger middle-aged male, appears older than stated age, class II obesity, mildly fatigued appearing but otherwise sitting back comfortably in bed, answering questions appropriately, in no acute distress. Improved from admission. General Appearance: cooperative and comfortable HEENT normocephalic, head/scalp atraumatic, hearing grossly normal bilaterally, nasal mucous membranes and turbinates normal and moist oral mucous membranes HEENT Narrative: Poor dentition. Eyes PERRL, EOMs intact bilaterally and conjunctivae normal Neck full ROM Chest inspection of chest normal Resp normal respiratory effort and no use of accessory muscles Resp Narrative: Breathing comfortably on room air at rest. Good breath sounds throughout with no crackles or wheezing noted. Improved from admission. Cardio regular rate, regular rhythm, no murmurs and peripheral pulses 2+ throughout GI normal to inspection, nondistended, normoactive bowel sounds, soft to palpation, non-tender and non-distended Back/Spine normal ROM Extremity normal to inspection, full ROM and no pedal edema Skin no rashes or lesions noted Psych mental status grossly normal Weight / BMI Weight Weight: 110 kg Body Mass Index (BMI) 34.7 ABG / Lab / Microbiology Data 02/23/25 12:50 02/23/25 06:08 Laboratory: Laboratory Results - last 24 hr 02/22/25 11:37: Blood Type B POSITIVE, Antibody Screen NEGATIVE, Crossmatch See Detail 02/22/25 11:37: Crossmatch See Detail 02/22/25 11:37: Crossmatch See Detail 02/23/25 06:08: WBC 7.1, RBC 2.23 L, Hgb 6.2 L, Hct 20.1 L, MCV 90.1, MCH 27.8, MCHC 30.8 L, RDW Std Deviation 60.1 H, RDW Coeff of Lance 18.0 H, Plt Count 251, MPV 10.2, Sodium 135, Potassium 5.3 H, Chloride 98, Carbon Dioxide 20.0 L, Anion Gap 16 H, BUN 55 H, Creatinine 10.60 H*, Estim Creat Clear Calc 11.43 L, Est GFR (MDRD) Non-Af 6 L, BUN/Creatinine Ratio 5.1 L, Glucose 95, Calcium 7.5 L 02/23/25 12:50: WBC 8.1, RBC 3.00 L, Hgb 8.8 L, Hct 27.6 L, MCV 92.0, MCH 29.3, MCHC 31.9 L, RDW Std Deviation 58.4 H, RDW Coeff of Lance 17.3 H, Plt Count 245, MPV 10.5 D/C Instructions DC O2, CPAP, BIPAP Needs Home O2 Discharge instructions: No Meaningful Use Info Meaningful Use Meaningful Use Diagnoses (Choose all that apply): None applicable Ischemic Stroke Statin Dosing Therapy Reference: STATIN DOSE THERAPY REFERENCE: * Patients > 75 years receive moderate or high dose statin therapy. * Patients 75 years or YOUNGER should receive HIGH intensity statin dose unless contraindicated. You will be required to document reason for non-treatment if statin daily dose does not meet guidelines. HIGH DOSE STATIN THERAPY DAILY Atorvastatin > than or = to 40 mg Rosuvastatin > than or = to 20 mg Amlodipine + Atorvastatin > than or = to 2.5/40 mg Ezetimibe + Simvastatin 10/80 mg Simvastatin 80mg Discharge Plan Admission Admit Date/Time: 02/21/25 22:12 Primary Reason for Your Visit: Shortness of breath and weakness Attending Provider: Moy Brumfield Primary Care Provider: Ro Corona Consulting Providers: Tameka Melendez; Alvaro Parham Discharge Orders/Prescriptions Prescriptions: Continued aspirin [Adult Aspirin Regimen] 81 mg tablet,delayed release (DR/EC) 81 mg PO DAILY midodrine 10 mg tablet 10 mg PO TID levothyroxine 25 mcg tablet 25 mcg PO DAILY cinacalcet 60 mg tablet 90 mg PO DAILY Juju-Tashi 0.8 mg tablet 1 tab PO DAILY Velphoro 500 mg tablet,chewable 1,500 mg PO TIDCM Patient Comments: CRUSH OR CHEW AND SWALLOW 3 TABLETS 3 TIMES A DAY WITH MEALS (DME) BP monitor large cuff See Rx Instructions .Route .MEDSUPPLY Qty: 1 0RF Rx Instructions: As directed warfarin 5 mg tablet 5 mg PO DAILY Qty: 90 3RF Protocol: Dose Management Condition: Friday Dose/Route: 5 mg Instruction: 1 x 5 mg tablet Condition: Friday Dose/Route: 2.5 mg Instruction: 0.5 x 5 mg tablets Condition: Friday Dose/Route: 2.5 mg Instruction: 0.5 x 5 mg tablets Condition: Friday Dose/Route: 2.5 mg Instruction: 0.5 x 5 mg tablets Condition: Dose/Route: 0 mg Instruction: 0 tablets Condition: Friday Dose/Route: 5 mg Instruction: 1 x 5 mg tablet Condition: Friday Dose/Route: 5 mg Instruction: 1 x 5 mg tablet Protocol Text: Adjustment Start Date: 02/10/25 INR Value: 4.9 INR Date: 02/10/25 Recheck Date: 02/14/25 Discontinued oxycodone 5 mg Tablet 5 - 10 mg PO Q6H PRN PRN (Reason: Pain Score 6-10) 7 Days Qty: 42 0RF Referrals / Follow Up: Ro Corona [[facility]] [facility] Doctor,Out of [Non-Staff] - Disposition Disposition (needs filled in before D/C Order can be placed): Home, Self Care Charges/Coding Visit Charges Inpatient E&M: 04167 Disch Hosp >30min
--- NOTE | 2025-02-23 16:02 | CASEMGMT ---
Social Work SW met with pt to provide resources. Pt informing SW that he does not feel he is ready for discharge today and expanding on why he is not ready. SW informed pt that SW would notify nursing of pt's concerns. SW attempted to discuss financial concerns with pt. Pt stating that prescription costs are higher than they use to be. Pt does have insurance with prescription benefits. SW provided pt with written information on prescription assistance programs, [employer] and [employer]. Pt accepting of information and denies further needs. SW updated pt nurse on pt concerns regarding discharge and nurse is aware. CANDY Jones
--- NOTE | 2025-02-23 16:02 | CASEMGMT ---
Addendum entered by Flori Shepherd 02/23/25 16:11: Dr. Brumfield reports that he plans to keep the pt admitted overnight. RN CM to pt room and notified pt. Original Note: PT reports to PCU Care Management that the pt is safe for DC home without any additional therapy needs. Pt has an order for DC placed by Dr. Brumfield. RN CM to the pt's room at this time. Pt sitting up in the chair and is frustrated. Pt states that he is not ready for DC today. Pt states that he is in too much pain still. This RN CM provided emotional support and notified the pt that this RN CM will let the hospitalist know. Dr. Brumfield notified. Awaiting return response. CM to follow.
--- NOTE | 2025-02-23 16:04 | PHA.DC.MR.R ---
Pharmacy [place] Med Reconciliation Pharmacy Service has performed discharge medication reconciliation for this patient. The patient's discharge medication list was reviewed for discrepancies and discrepancies were resolved. Medications at Discharge Home Medications BP monitor #1 ea 07/17/21 aspirin 81 mg tablet,delayed release (Adult Aspirin Regimen) 81 mg PO DAILY 10/29/21 midodrine 10 mg tablet 10 mg PO TID 10/29/21 sucroferric oxyhydroxide 500 mg chewable tablet (Velphoro) 1,500 mg PO TIDCM 11/11/23 warfarin 5 mg tablet 5 mg PO DAILY #90 tabs 05/07/24 cinacalcet 60 mg tablet 90 mg PO DAILY 07/30/24 levothyroxine 25 mcg tablet 25 mcg PO DAILY disorder of thyroid gland 07/30/24 vitamin B complex-vitamin C-folic acid 0.8 mg tablet (Juju-Tashi) 1 tab PO DAILY 07/30/24
--- NOTE | 2025-02-23 16:10 | PN.HOSP_ITS ---
Reason for Visit Reason for Visit: Diagnoses Anemia in chronic kidney disease (02/21/25) End stage renal disease (02/21/25) Chronic kidney disease, unspecified (02/21/25) Weakness (02/21/25) Presence of prosthetic heart valve (02/21/25) Subjective Subjective Saw patient at bedside this morning and then again this afternoon. Patient was having dialysis done and blood transfusion done this morning. Continue to feel weak and fatigued this morning. When I saw him this afternoon, he was sitting up in bedside chair comfortably and appeared to have better energy than this morning. He was reporting some pain in the back at the site of bleeding on admission. He worked with PT/OT this afternoon and did fairly well with them. However, he continues to report fatigue and does not feel comfortable going home today. Notably discharge orders were in for the patient but as wound care is not seen him and he continues to have back pain at that site, and he also had significant anemia on arrival here, will keep him overnight and have wound care see him in the morning and recheck blood count tomorrow morning as well. Objective Data Objective Data Vital Signs: Vital Signs Temp Pulse Resp BP Pulse Ox O2 Del Method O2 Flow Rate 98.2 F 95 16 99/76 94 Room Air 2 02/23/25 13:53 02/23/25 13:53 02/23/25 13:53 02/23/25 13:53 02/23/25 13:53 02/23/25 14:12 02/22/25 15:40 Oxygen Flow Rate (L/min) 2 Oxygen Delivery Method Room Air Weight: 110 kg Body Mass Index (BMI) 34.7 Intake & Output: Intake and Output for Last 24 Hours 02/21/25 02/22/25 02/23/25 23:59 23:59 23:59 Intake Total 475 / 475 900 / 900 Output Total 4630 / 4630 3560 / 3560 Balance -4155 / -4155 -2660 / -2660 Lab / Micro Data 02/23/25 12:50 02/23/25 06:08 Labs: Laboratory Results - last 24 hr 02/22/25 11:37: Blood Type B POSITIVE, Antibody Screen NEGATIVE, Crossmatch See Detail 02/22/25 11:37: Crossmatch See Detail 02/22/25 11:37: Crossmatch See Detail 02/23/25 06:08: WBC 7.1, RBC 2.23 L, Hgb 6.2 L, Hct 20.1 L, MCV 90.1, MCH 27.8, MCHC 30.8 L, RDW Std Deviation 60.1 H, RDW Coeff of Lance 18.0 H, Plt Count 251, MPV 10.2, Sodium 135, Potassium 5.3 H, Chloride 98, Carbon Dioxide 20.0 L, Anion Gap 16 H, BUN 55 H, Creatinine 10.60 H*, Estim Creat Clear Calc 11.43 L, Est GFR (MDRD) Non-Af 6 L, BUN/Creatinine Ratio 5.1 L, Glucose 95, Calcium 7.5 L 02/23/25 12:50: WBC 8.1, RBC 3.00 L, Hgb 8.8 L, Hct 27.6 L, MCV 92.0, MCH 29.3, MCHC 31.9 L, RDW Std Deviation 58.4 H, RDW Coeff of Lance 17.3 H, Plt Count 245, MPV 10.5 Physical Exam Const alert, oriented x3 and no apparent distress Constitutional Narrative: Younger middle-aged male, appears older than stated age, class II obesity, mildly fatigued appearing but otherwise sitting back comfortably in bed, answering questions appropriately, in no acute distress. Improved from admission. General Appearance: cooperative and comfortable HEENT normocephalic, head/scalp atraumatic, hearing grossly normal bilaterally, nasal mucous membranes and turbinates normal and moist oral mucous membranes HEENT Narrative: Poor dentition. Eyes PERRL, EOMs intact bilaterally and conjunctivae normal Neck full ROM Chest inspection of chest normal Resp normal respiratory effort and no use of accessory muscles Resp Narrative: Breathing comfortably on room air at rest. Good breath sounds throughout with no crackles or wheezing noted. Improved from admission. Cardio regular rate, regular rhythm, no murmurs and peripheral pulses 2+ throughout GI normal to inspection, nondistended, normoactive bowel sounds, soft to palpation, non-tender and non-distended Back/Spine normal ROM Back/Spine Narrative: Dressing in place over wound on back, appears clean and dry. Extremity normal to inspection, full ROM and no pedal edema Skin no rashes or lesions noted Psych mental status grossly normal Assessment & Plan Assessment/Plan (1) Anemia in chronic kidney disease: (2) General weakness: PLAN: Plan Patient is a 44-year-old male who presented to [facility] ED on 02/21/2025 with worsening shortness of breath and weakness. 1. ESRD on HD with mild volume overload ? Nephrology following. On HD MWF, has been compliant with dialysis sessions. Mild shortness of breath on exertion on admit likely multifactorial from mild volume overload and slightly worsened anemia as noted below. Completed HD sessions on 02/22 and 02/23 with significant volume removal. Continue home Cinacalcet, Velphoro and midodrine. Tentatively planning for discharge home tomorrow with resumption of home dialysis schedule on Friday. 2. Acute on chronic anemia ? Hemoglobin 7.4 on admit, dropped to 6.3 on hospital day 2. Chronic anemia secondary to renal disease. Presume that worsening is secondary to bleeding from upper back wound as noted below. Gave 1 unit of blood on 02/22 but repeat hemoglobin remained at 6.2. Given another 2 units of blood on 02/23 with improvement to 8.8. Will repeat CBC tomorrow morning to ensure hemoglobin remained stable. 3. Generalized weakness ? PT/OT/case management following. Patient with good therapy scores on 02/23, no therapy needs on discharge. 4. Upper back wound ? Has chronic back wound due to varicose vein that was bleeding in the ED and repaired by ED physician with dressing applied. Wound care will evaluate this wound in the morning. 5. Paroxysmal A-fib on warfarin ? Stable in normal sinus rhythm on admit. INR 2.6 on admit, at goal. Continue home warfarin. Not on rate controlling agent. 6. Hypothyroidism ? Continue home Synthroid. 7. Class II obesity ? BMI 35 on admit. Complicated hospital course, care and prognosis. DVT prophylaxis: Not indicated, on warfarin CODE STATUS: Full code, verified Expected disposition: Home, 1 to 2 days Total clinical time spent by myself addressing the patient's medical issues, reviewing all the data, and collaborating with patient's care team: 35 minutes. Charges/Coding Visit Charges Inpatient E&M: 99626 Subs Hosp L2
[2025-02-24 03:28] VITALS: BP 113/53; PULSE 88; RESP 18; TEMP 36.9; O2SAT 97
[2025-02-24] MEDS: Midodrine HCl 5 MG Tablet 10 MG PO (04:50)
[2025-02-24] MEDS: oxyCODONE 5 MG Tablet PO (04:50)
[2025-02-24] MEDS: Levothyroxine 25 MCG TABLET PO (04:50)
[2025-02-24 05:44] LABS: Hematocrit 26.8 % (40-54); Hemoglobin 8.3 g/dL (13.0-16.5); Mean Corpuscular Hgb 28.6 pg (27.0-32.0); Mean Corpuscular Volume 92.4 fL (80-94); Mean Platelet Vol. 10.4 fl (6.2-12.0); Platelet Count 272 K/mm3 (150-450); RBC Distribution Width CV 17.2 % (11.6-14.6); RBC Distribution Width SD 58.2 fl (35.1-43.9); White Blood Count 7.3 K/mm3 (4.4-11.0)
[2025-02-24 07:11] VITALS: O2SAT 93
[2025-02-24 08:55] VITALS: BP 120/57; PULSE 79; RESP 18; TEMP 36.4; O2SAT 97
[2025-02-24] MEDS: SEVELAMER CARBONATE 800 MG TABLET 3200 MG PO (09:04)
[2025-02-24] MEDS: Cinacalcet HCl 30 MG Tablet 90 MG PO (09:05)
[2025-02-24] MEDS: Folic Acid/Vitamin B Comp W-C 1 Capsule 1 CAP PO (09:05)
[2025-02-24] MEDS: Aspirin E.C. 81 MG Tablet PO (09:05)
--- NOTE | 2025-02-24 10:38 | PCM.DC.SUM ---
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 Routine Comment: Reason for Consult:: multiple wounds on back, chest, abdomen, bilateral legs Reason For Visit: END STAGE RENAL DISEASE, GENERALIZED WEAKNESS Diagnosis Discharge Diagnosis (1) Anemia in chronic kidney disease: Status: Chronic Code(s): N18.9 - Chronic kidney disease, unspecified; D63.1 - Anemia in chronic kidney disease (2) General weakness: Status: Acute Code(s): R53.1 - Weakness Medications at Discharge Home Medications BP monitor #1 ea 07/17/21 aspirin 81 mg tablet,delayed release (Adult Aspirin Regimen) 81 mg PO DAILY 10/29/21 midodrine 10 mg tablet 10 mg PO TID 10/29/21 sucroferric oxyhydroxide 500 mg chewable tablet (Velphoro) 1,500 mg PO TIDCM 11/11/23 warfarin 5 mg tablet 5 mg PO DAILY #90 tabs 05/07/24 cinacalcet 60 mg tablet 90 mg PO DAILY 07/30/24 levothyroxine 25 mcg tablet 25 mcg PO DAILY disorder of thyroid gland 07/30/24 vitamin B complex-vitamin C-folic acid 0.8 mg tablet (Juju-Tashi) 1 tab PO DAILY 07/30/24 Hospital Course Operations None Procedures Blood transfusion, Dialysis and - (Chest x-ray) Summary of Care Provided Minutes Spent on Discharge: 35 Hospital Course: Patient is a 44-year-old male who presented to [facility] ED on 02/21/2025 with worsening shortness of breath and weakness. Hospital course as noted below. Patient discharged home in stable condition on 02/24. 1. ESRD on HD with mild volume overload ? Nephrology followed. On HD MWF, has been compliant with dialysis sessions. Mild shortness of breath on exertion on admit likely multifactorial from mild volume overload and slightly worsened anemia as noted below. Completed HD sessions on 02/22 and 02/23 with significant volume removal. Continue home Cinacalcet, Velphoro and midodrine. Stable for discharge home on 02/24 with resumption of home dialysis control on 02/25. 2. Acute on chronic anemia ? Hemoglobin 7.4 on admit, dropped to 6.3 on hospital day 2. Chronic anemia secondary to renal disease. Presume that worsening is secondary to bleeding from upper back wound as noted below. Gave 1 unit of blood on 02/22 but repeat hemoglobin remained at 6.2. Given another 2 units of blood on 02/23 with improvement to 8.8. Repeat hemoglobin 8.3 on morning of discharge. Recommend repeat CBC in 5 to 7 days to ensure hemoglobin remained stable. 3. Generalized weakness ? PT/OT/case management followed. Patient with good therapy scores on 02/23, no therapy needs on discharge. 4. Upper back wound ? Wound care followed. Has chronic back wound due to varicose vein that was bleeding in the ED and repaired by ED physician with dressing applied. Wound appeared to be healing well per wound care on day of discharge. Case management assisted with having patient follow-up with the wound center after discharge. 5. Paroxysmal A-fib on warfarin ? Stable in normal sinus rhythm on admit. INR 2.6 on admit, at goal. Continue home warfarin. Not on rate controlling agent. 6. Hypothyroidism ? Continue home Synthroid. 7. Class II obesity ? BMI 35 on admit. Complicated hospital course, care and prognosis. Total clinical time spent by myself addressing the patient's medical issues, reviewing all the data, and collaborating with patient's care team: 35 minutes. Physical Exam Const alert, oriented x3 and no apparent distress Constitutional Narrative: Younger middle-aged male, appears older than stated age, class II obesity, mildly fatigued appearing but otherwise sitting back comfortably in bed, answering questions appropriately, in no acute distress. Improved from admission. General Appearance: cooperative and comfortable HEENT normocephalic, head/scalp atraumatic, hearing grossly normal bilaterally, nasal mucous membranes and turbinates normal and moist oral mucous membranes HEENT Narrative: Poor dentition. Eyes PERRL, EOMs intact bilaterally and conjunctivae normal Neck full ROM Chest inspection of chest normal Resp normal respiratory effort and no use of accessory muscles Resp Narrative: Breathing comfortably on room air at rest. Good breath sounds throughout with no crackles or wheezing noted. Improved from admission. Cardio regular rate, regular rhythm, no murmurs and peripheral pulses 2+ throughout GI normal to inspection, nondistended, normoactive bowel sounds, soft to palpation, non-tender and non-distended Back/Spine normal ROM Back/Spine Narrative: Dressing in place over wound on back, appears clean and dry. Extremity normal to inspection, full ROM and no pedal edema Skin no rashes or lesions noted Psych mental status grossly normal Weight / BMI Weight Weight: 110 kg Body Mass Index (BMI) 34.7 ABG / Lab / Microbiology Data 02/24/25 05:20 02/23/25 06:08 Laboratory: Laboratory Results - last 24 hr 02/22/25 11:37: Crossmatch See Detail 02/23/25 12:50: WBC 8.1, RBC 3.00 L, Hgb 8.8 L, Hct 27.6 L, MCV 92.0, MCH 29.3, MCHC 31.9 L, RDW Std Deviation 58.4 H, RDW Coeff of Lance 17.3 H, Plt Count 245, MPV 10.5 02/24/25 05:20: WBC 7.3, RBC 2.90 L, Hgb 8.3 L, Hct 26.8 L, MCV 92.4, MCH 28.6, MCHC 31.0 L, RDW Std Deviation 58.2 H, RDW Coeff of Lance 17.2 H, Plt Count 272, MPV 10.4 D/C Instructions Discharge Diet: No restrictions DC O2, CPAP, BIPAP Needs Home O2 Discharge instructions: No Meaningful Use Info Meaningful Use Meaningful Use Diagnoses (Choose all that apply): None applicable Ischemic Stroke Statin Dosing Therapy Reference: STATIN DOSE THERAPY REFERENCE: * Patients > 75 years receive moderate or high dose statin therapy. * Patients 75 years or YOUNGER should receive HIGH intensity statin dose unless contraindicated. You will be required to document reason for non-treatment if statin daily dose does not meet guidelines. HIGH DOSE STATIN THERAPY DAILY Atorvastatin > than or = to 40 mg Rosuvastatin > than or = to 20 mg Amlodipine + Atorvastatin > than or = to 2.5/40 mg Ezetimibe + Simvastatin 10/80 mg Simvastatin 80mg Discharge Plan Admission Admit Date/Time: 02/21/25 22:12 Primary Reason for Your Visit: Shortness of breath and weakness Attending Provider: Moy Brumfield Primary Care Provider: Ro Corona Consulting Providers: Tameka Melendez; Alvaro Parham Discharge Orders/Prescriptions Prescriptions: Continued aspirin [Adult Aspirin Regimen] 81 mg tablet,delayed release (DR/EC) 81 mg PO DAILY midodrine 10 mg tablet 10 mg PO TID levothyroxine 25 mcg tablet 25 mcg PO DAILY cinacalcet 60 mg tablet 90 mg PO DAILY Juju-Tashi 0.8 mg tablet 1 tab PO DAILY Velphoro 500 mg tablet,chewable 1,500 mg PO TIDCM Patient Comments: CRUSH OR CHEW AND SWALLOW 3 TABLETS 3 TIMES A DAY WITH MEALS (DME) BP monitor large cuff See Rx Instructions .Route .MEDSUPPLY Qty: 1 0RF Rx Instructions: As directed warfarin 5 mg tablet 5 mg PO DAILY Qty: 90 3RF Protocol: Dose Management Condition: Friday Dose/Route: 5 mg Instruction: 1 x 5 mg tablet Condition: Friday Dose/Route: 2.5 mg Instruction: 0.5 x 5 mg tablets Condition: Friday Dose/Route: 2.5 mg Instruction: 0.5 x 5 mg tablets Condition: Friday Dose/Route: 2.5 mg Instruction: 0.5 x 5 mg tablets Condition: Dose/Route: 0 mg Instruction: 0 tablets Condition: Friday Dose/Route: 5 mg Instruction: 1 x 5 mg tablet Condition: Friday Dose/Route: 5 mg Instruction: 1 x 5 mg tablet Protocol Text: Adjustment Start Date: 02/10/25 INR Value: 4.9 INR Date: 02/10/25 Recheck Date: 02/14/25 Discontinued oxycodone 5 mg Tablet 5 - 10 mg PO Q6H PRN PRN (Reason: Pain Score 6-10) 7 Days Qty: 42 0RF Referrals / Follow Up: Ro Corona [[facility]] [facility] Doctor,Out of [Non-Staff] - Disposition Disposition (needs filled in before D/C Order can be placed): Home, Self Care Charges/Coding Visit Charges Inpatient E&M: 17743 Disch Hosp >30min
[2025-02-24 11:15] VITALS: BP 120/57; PULSE 79; RESP 18; TEMP 36.4; O2SAT 97
--- NOTE | 2025-02-24 11:37 | CASEMGMT ---
Pt has an order for DC placed. See initial RN CM assessment. RN CM to the pt room at this time to solidify DC plans. Pt states that he has a ride home today. Pt states that he plans to continue OP HD tomorrow. TC to Najma Estrella and Emmy notified. Pt states that he would like a home economics expert. This RN CM educated the pt that this RN CM can provide the pt with a list of private duty aid but that insurance does not cover this. Pt becomes frustrated and states that he cannot afford this. Pt inquires about skilled HHC. 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 Pt is not considered homebound and his previous HHC was discontinued due to this. Dr. Brumfield also states that the patient had good therapy scores with no therapy needs on discharge. This RN CM reminded the pt of this and that his insurance will not help pay for HHC due to not being considered homebound. Pt states understanding but is disappointed. This RN CM inquired if the pt would like to go to OP Physical therapy. Pt declines. This RN CM inquired if the pt would like to follow up at the [facility] for his wounds. Pt also declines this and states that he will go to [facility] in [place] for his wounds. Pt states that he does not want to talk to this RN CM any longer and requests this RN CM to leave the room. Pt declines further DC needs and states that he feels safe returning home with this family.
--- NOTE | 2025-02-24 11:55 | PCM.PN.REN ---
Subjective Subjective No new events Objective Data Objective Data Vital Signs: Vital Signs Temp Pulse Resp BP Pulse Ox O2 Del Method O2 Flow Rate 97.5 F L 79 18 120/57 L 97 Room Air 2 02/24/25 11:15 02/24/25 11:15 02/24/25 11:15 02/24/25 11:15 02/24/25 11:15 02/24/25 11:15 02/22/25 15:40 Oxygen Flow Rate (L/min) 2 Oxygen Delivery Method Room Air Weight: 110 kg Body Mass Index (BMI) 34.7 Intake & Output: Intake and Output for Last 24 Hours 02/22/25 02/23/25 02/24/25 23:59 23:59 23:59 Intake Total 475 / 475 1380 / 1380 240 / 240 Output Total 4630 / 4630 3560 / 3560 0 / 0 Balance -4155 / -4155 -2180 / -2180 240 / 240 Lab / Micro Data 02/24/25 05:20 02/23/25 06:08 Labs: Laboratory Results - last 24 hr 02/22/25 11:37: Crossmatch See Detail 02/23/25 12:50: WBC 8.1, RBC 3.00 L, Hgb 8.8 L, Hct 27.6 L, MCV 92.0, MCH 29.3, MCHC 31.9 L, RDW Std Deviation 58.4 H, RDW Coeff of Lance 17.3 H, Plt Count 245, MPV 10.5 02/24/25 05:20: WBC 7.3, RBC 2.90 L, Hgb 8.3 L, Hct 26.8 L, MCV 92.4, MCH 28.6, MCHC 31.0 L, RDW Std Deviation 58.2 H, RDW Coeff of Lance 17.2 H, Plt Count 272, MPV 10.4 Physical Exam Narrative Alert and oriented x 3, no apparent distress S1, S2, RRR Lung sounds clear anteriorly and posteriorly no rales or rhonchi Abdomen soft, rounded, nontender Edema bilateral lower legs Tunneled hemodialysis catheter dressing clean, dry and intact Assessment & Plan Assessment/Plan (1) ESRD (end stage renal disease): (2) Anemia in chronic kidney disease: PLAN: Plan 44-year-old male with past medical history significant for ESRD on hemodialysis, ESRD. ESRD, Friday, Friday, Friday. Anemia. S/p PRBC
== END 2025-02-24 12:43 | disposition home or self-care (01) | DRG 987 ==
LOC: ED 22:05 → PCU 22:22
PROVIDERS: Admitting Provider Family Medicine; Emergency Provider Emergency Medicine; Visit Provider Hospitalist
DX: E87.70 Fluid overload, unspecified (principal); N18.6 End stage renal disease; I12.0 Hypertensive chronic kidney disease with stage 5 chronic kidney disease or end stage renal disease; I24.89 Other forms of acute ischemic heart disease; D63.1 Anemia in chronic kidney disease; E03.9 Hypothyroidism, unspecified; E66.812 Obesity, class 2; I48.0 Paroxysmal atrial fibrillation; Z99.2 Dependence on renal dialysis; I83.899 Varicose veins of unspecified lower extremity with other complications; I86.8 Varicose veins of other specified sites; Z86.16 Personal history of COVID-19; R53.1 Weakness; R06.00 Dyspnea, unspecified; Z79.82 Long term (current) use of aspirin; Z79.01 Long term (current) use of 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s; Z79.890 Hormone replacement therapy; Z68.35 Body mass index [BMI] 35.0-35.9, adult; Z79.891 Long term (current) use of opiate analgesic
CPT/HCPCS: 36415; 71046; 80048; 83605; 83880; 84484; 85025; 85027; 85610; 85730; 86850; 86900; 86901; 90937; 93005; 97162; 97166; 99285; P9016; A4216; G0257; J2405

== ENCOUNTER → 2025-03-01 14:31 | Outpatient (RCR) | payer MEDICARE, SELFPAY ==
[2025-03-01 15:16] LABS: Absolute Lymphocyte Count 0.67 X10^3/uL (0.83-4.51); Absolute Neutrophil Count 5.9 X10^3/uL (2.0-7.7); Basophil# 0.04 X10^3/uL; Basophil% 0.5 % (0-1); Eosinophil# 0.31 X10^3/uL; Eosinophils% 3.9 % (0-5); Hematocrit 27.5 % (40-54); Hemoglobin 8.2 g/dL (13.0-16.5); Lymphocyte # 0.67 X10^3/ul (0.83-4.51); Lymphocyte % 8.4 % (19-41); Mean Corp Hgb Conc 29.8 g/dL (32-36); Mean Corpuscular Hgb 27.8 pg (27.0-32.0); Mean Corpuscular Volume 93.2 fL (80-94); Mean Platelet Vol. 10.3 fl (6.2-12.0); Monocyte# 1.01 X10^3/uL; Monocyte% 12.7 % (0-10); NRBC Flagged by Analyzer 0 % (0-5); Neutrophil # 5.86 X10^3/uL (2.7-7.7); Platelet Count 301 K/mm3 (150-450); RBC Distribution Width CV 17.8 % (11.6-14.6); Red Blood Count 2.95 M/mm3 (4.6-6.2); White Blood Count 7.9 K/mm3 (4.4-11.0)
[2025-03-01 15:47] LABS: International Normalized Ratio 2.2; Prothrombin Time (Protime)PT. 25.2 SECONDS (11.7-14.9)
[2025-03-01 15:49] LABS: Anion Gap 20 (5-15); BUN 47 mg/dL (4-19); BUN/Creat Ratio 4.5 RATIO (10-20); Calcium,Total 8.3 mg/dL (7.6-11.0); Carbon Dioxide 21.4 mmol/L (21.0-32.0); Chloride 95 mmol/L (98-108); EST Glomerular Filtration Rate 6 (>60); Glucose 74 mg/dL (70-99); Potassium 4.2 mmol/L (3.3-5.1); Sodium Level 137 mmol/L (133-145)
== END ==
LOC: LAB 14:31
PROVIDERS: Hospitalist; Referring Provider Nurse Practitioner Gerontology; Visit Provider Internal Medicine Cardiovascular Disease
DX: I48.0 Paroxysmal atrial fibrillation (principal); I48.92 Unspecified atrial flutter; N18.6 End stage renal disease; Z79.01 Long term (current) use of 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s; R53.83 Other fatigue; D63.1 Anemia in chronic kidney disease
CPT/HCPCS: 36415; 80048; 84443; 85025; 85610

== ENCOUNTER 2025-03-02 18:24 | Inpatient (IN) | payer MEDICARE, SELFPAY ==
[2025-03-02] VITALS (12 sets, daily range): BP systolic 87–125; BP diastolic 48–77; PULSE 110–130; RESP 17–30; TEMP 36.4–37.2; O2SAT 95–99; BMI 38.5
--- NOTE | 2025-03-02 18:57 | EKG12_ITS ---
Test Reason : WEAKNESS Blood Pressure : */* mmHG Vent. Rate : 130 BPM Atrial Rate : * BPM P-R Int : * ms QRS Dur : 56 ms QT Int : 344 ms P-R-T Axes : * 140 57 degrees QTcB Int : 506 ms Sinus tachycardia Right axis deviation Low voltage QRS Septal infarct , age undetermined Abnormal ECG Confirmed by CHANDA STAHL, ZIA ([id number]), magazine editor MARGARITO CHANDLER ([id number]) on 03/07/2025 6:21:58 AM Referred By: JOSE ANGEL Confirmed By: ZIA ARMAS MD
[2025-03-02] MEDS: 0.9% Normal Saline (1000mL) 1,000 ML 999 ML IV (19:02)
--- NOTE | 2025-03-02 19:35 | RAD_ITS ---
PROCEDURE: CHEST PA AND LATERAL 03/02/2025 REASON FOR EXAM: WEAKNESS TECHNIQUE: Frontal and lateral views of the chest. COMPARISON: 02/21/2025 FINDINGS: Hardware: Right-sided central line terminating within the SVC. Median sternotomy wires. Cardiac clip is noted. Heart: Borderline cardiomegaly. Mediastinum: The mediastinal contour is unremarkable. Lungs: Mild pulmonary vascular congestion. Right lower lobe opacity not excluded. No pneumothorax. No significant pleural effusions. Bones: Degenerative changes are identified within the thoracic spine. RAD/Chest PA and Lateral IMPRESSION: Mild pulmonary vascular congestion. Right lower lobe opacity not excluded. Reading Location: [id number]
[2025-03-02 19:48] LABS: Absolute Lymphocyte Count 0.65 X10^3/uL (0.83-4.51); Absolute Neutrophil Count 6.7 X10^3/uL (2.0-7.7); Basophil# 0.02 X10^3/uL; Basophil% 0.2 % (0-1); Eosinophil# 0.13 X10^3/uL; Eosinophils% 1.5 % (0-5); Hematocrit 28.1 % (40-54); Hemoglobin 8.7 g/dL (13.0-16.5); Lymphocyte # 0.65 X10^3/ul (0.83-4.51); Lymphocyte % 7.3 % (19-41); Mean Corpuscular Hgb 28.2 pg (27.0-32.0); Mean Corpuscular Volume 90.9 fL (80-94); Mean Platelet Vol. 10.2 fl (6.2-12.0); Monocyte# 1.34 X10^3/uL; Monocyte% 15.1 % (0-10); NRBC Flagged by Analyzer 0 % (0-5); Neutrophil # 6.67 X10^3/uL (2.7-7.7); Neutrophil % 75.2 % (47-70); Platelet Count 269 K/mm3 (150-450); RBC Distribution Width CV 17.5 % (11.6-14.6); RBC Distribution Width SD 59.2 fl (35.1-43.9); Red Blood Count 3.09 M/mm3 (4.6-6.2); White Blood Count 8.9 K/mm3 (4.4-11.0)
[2025-03-02 20:27] LABS: ALB/GLOB Ratio 0.6 RATIO (0.9-2.4); AST(SGOT) 33 U/L (<=37); Alanine Aminotransfer ALT/SGPT 16 U/L (<=46); Albumin, Serum 3.7 g/dL (3.5-5.0); Alkaline Phosphatase 179 U/L (40-129); Anion Gap 20 (5-15); BUN 23 mg/dL (4-19); BUN/Creat Ratio 3.5 RATIO (10-20); Calcium,Total 8.7 mg/dL (7.6-11.0); Carbon Dioxide 25.3 mmol/L (21.0-32.0); Chloride 93 mmol/L (98-108); Creatinine, Serum 6.42 mg/dL (0.70-1.20); EST Glomerular Filtration Rate 10 (>60); Globulin 5.7 g/dL (2.2-4.2); Glucose 128 mg/dL (70-99); Potassium 3.3 mmol/L (3.3-5.1); Protein, Total 9.4 g/dL (5.9-8.4); Sodium Level 138 mmol/L (133-145); Total Bilirubin 0.63 mg/dL (0.00-1.30)
--- NOTE | 2025-03-02 20:29 | CT_ITS ---
PROCEDURE: STROKE BRAIN/HEAD WITHOUT CONT 03/02/2025 REASON FOR EXAM: NEURO DEFICIT, ACUTE, STROKE SUSPECTED TECHNIQUE: Head CT without intravenous contrast. Coronal and Sagittal reconstruction series were provided. One or more dose reduction techniques were used (e.g., Automated exposure control, adjustment of the mA and/or kV according to patient size, use of iterative reconstruction technique. RADIATION DOSE SUMMARY: CTDlvol: 44.99 mGy DLP: 880.47 mGycm COMPARISON: 08/19/2022. FINDINGS: Mild global parenchymal atrophy. Periventricular white matter hyperintensity likely representing chronic microvascular ischemia. No evidence of acute hemorrhage or infarction. No extra-axial blood or fluid collections. The paranasal sinuses are clear. The mastoid air cells are well aerated. The calvarial vault and skull base are intact. CT/STROKE Brain/Head without Cont IMPRESSION: No acute intracranial abnormality. Stroke called to the ordering provider will be done after reading the CTA. Reading Location: [id number]
[2025-03-02 20:30] LABS: Lactic Acid 3.6 mmol/L (0.0-2.0)
--- NOTE | 2025-03-02 20:30 | CT_ITS ---
PROCEDURE: STROKE CTA HEAD AND NECK W/CON 03/02/2025 REASON FOR EXAM: NEURO DEFICIT, ACUTE, STROKE SUSPECTED TECHNIQUE: CTA imaging of the head and neck from the aortic arch to the skull vertex with out contrast and with intravenous contrast. Multiplanar and multisequence images were obtained. CONTRAST: Isovue 370 VOLUME: 95 mL. One or more dose reduction techniques were used (e.g., Automated exposure control, adjustment of the mA and/or kV according to patient size, use of iterative reconstruction technique). RADIATION DOSE SUMMARY: CTDlvol: 70.58+ 19.07 mGy DLP: 819.95 mGycm COMPARISON: None. FINDINGS: The great vessels of the aortic arch are patent. The subclavian arteries are patent. Mild atherosclerosis of the common carotid arteries without significant stenosis. Atherosclerosis of the bilateral carotid bulbs/proximal internal carotid arteries without hemodynamically significant stenosis. Atherosclerosis of the carotid siphons without significant stenosis. The [id number] is intact. The anterior cerebral, anterior communicating, middle cerebral, and posterior cerebral arteries are patent. The intracranial vertebrobasilar system is patent. Apices are clear. Subcentimeter peripherally calcified thyroid nodules. CT/STROKE CTA Head AND Neck W/Con IMPRESSION: No acute arterial abnormalities of the head or neck. Atherosclerosis as above. Subcentimeter peripherally calcified thyroid nodules. Critical results were communicated to the ordering provider at 9:10 p.m.. Reading Location: [place] [id number]
[2025-03-02 20:36] LABS: International Normalized Ratio 1.8; Prothrombin Time (Protime)PT. 21.6 SECONDS (11.7-14.9)
[2025-03-02 20:37] LABS: Partial Thromboplast Time 44.7 Seconds (24.1-36.2)
--- NOTE | 2025-03-02 20:37 | ED.RN ---
this rn was pulled out of pt room to be asked about this pts inability to hold up right arm. pt was moving right arm for this rn during initiation of iv [address] lockhart seeing pt. dr. lockhart calls stroke alert. stroke protocol initiated.
[2025-03-02] MEDS: Ceftriaxone 2 GM in 0.9% Normal Saline (50mL MB+) 50 ML IV (21:18)
[2025-03-02] MEDS: Morphine 4 MG/ML Syringe IV (21:19)
[2025-03-02 21:38] LABS: Troponin T High Sensitivity 211 ng/L (<=22)
--- NOTE | 2025-03-02 21:45 | RAD_ITS ---
PROCEDURE: SHOULDER MIN 2 VIEWS 03/02/2025 REASON FOR EXAM: PAIN TECHNIQUE: 4 view(s) of the right shoulder COMPARISON: Right shoulder radiographs on 12/21/2020 FINDINGS: Overlying catheter and patient positioning limits this evaluation. There is widening of the glenohumeral interval and humeral head is located slightly posterior to the glenoid on the scapular Y-view, similar to the exam in 2020. No displaced fracture is identified. There is questionable interval decrease in bone stock of the glenoid. The acromiohumeral interval measures 2.2 cm. There is a corticated calcification adjacent to the humeral shaft which may represent dystrophic calcification or sequela of remote injury. Surgical clips project over the neck. Median sternotomy wires, atrial appendage occluder, and prosthetic heart valve. Tunnel dialysis catheter is partially imaged. RAD/Shoulder min 2 Views IMPRESSION: 1.Limited exam. Widening of the glenohumeral interval and posterior relationsh ip of the humeral head relative to the glenoid, concerning for posterior shoulder subluxation or dislocation. Joint effusion m ay contribute to this appearance. 2. Questionable interval decrease in glenoid bone stock since radiographs in 021, which may be artifactual. Infection is not excluded. 3. Widening of the acromiohumeral interval is slightly increased in prominence compared to radiographs in 2020. Reading Location: [id number]
--- NOTE | 2025-03-02 21:45 | RAD_ITS ---
PROCEDURE: KNEE 3 VIEWS 03/02/2025 REASON FOR EXAM: PAIN TECHNIQUE: Three views of the right knee. COMPARISON: None. FINDINGS: No evidence of acute fracture or dislocation. Mild fat stranding of the tissues which may represent edema. No knee joint effusion. RAD/Knee 3 Views IMPRESSION: No acute osseous abnormalities. Mild fat stranding of the soft tissues which may represent edema. Reading Location: [id number]
[2025-03-02] MEDS: Azithromycin 500 MG in 0.9% Normal Saline (250mL Bag) 250 ML 255 MG IV (22:14)
--- NOTE | 2025-03-02 22:29 | CT_ITS ---
PROCEDURE: EXTREMITY UPPER WITHOUT CONTRA 03/02/2025 REASON FOR EXAM: SHOULDER PAIN, XRAY CONCERN FOR DISLOCATION TECHNIQUE: Axial CT images of the right shoulder obtained without intravenous contrast. Coronal and Sagittal reconstruction series were provided. One or more dose reduction techniques were used (e.g., Automated exposure control, adjustment of the mA and/or kV according to patient size, use of iterative reconstruction technique RADIATION DOSE SUMMARY: CTDlvol: 41.9 mGy DLP: 987 mGycm COMPARISON: Same-day right shoulder radiographs, CT neck on 05/17/2022 FINDINGS: No fracture or dislocation. There is markedly irregular appearance of the glenoid with enlargement of the glenoid fossa. There are heterogeneous contents within the glenohumeral joint and extending below the coracoid process. Calcification in the right upper arm soft tissues measuring 1.1 cm may represent a phlebolith. There is right axillary lymphadenopathy. Solid pulmonary nodule in the right upper lobe measuring 6 mm (series 2, image 70). There are prominent collateral vessels throughout the chest wall anteriorly and posteriorly. Central venous catheter and median sternotomy wires are partially imaged. There is irregularity of the endplates at C2 through C4, new from CT in 2021. CT/Extremity Upper without Contra IMPRESSION: 1. No evidence of a shoulder fracture or dislocation. There is markedly irreg ular appearance of the right glenoid, with widening of the glenoid fossa. 2. Right shoulder joint effusion. Consider aspiration if there is concern for infection. 3. Irregularity of the vertebral body endplates from C2 through C4, which is n ew since 2021 and could be degenerative or infectious. Consider MRI if there is concern for discitis-osteomyelitis. 4. Right axillary lymphadenopathy. 5. Solid pulmonary nodule in the right upper lobe measuring 6 mm. Recommend C T chest in 6-12 months per Fleischner society guidelines. Yellow Alert: Impression above The critical information above was relayed directly by me by telephone to Mau Min on 03/02/2025 at 11:16 pm with readback verification. Reading Location: [id number]
[2025-03-02] MEDS: fentaNYL 100 MCG/2 ML Ampul IV (23:10)
[2025-03-02 23:15] LABS: Reflex Lactate? Y
--- NOTE | 2025-03-02 23:20 | EX.ED.DYSGE1 ---
HPI History of Present Illness Chief Complaint: Weakness Narrative Narrative: Patient is a 44-year-old male with a past medical history of chronic kidney disease on dialysis, PE on warfarin, paroxysmal A-fib, BMI of 38, YEIMY, inferior vena cava occlusion, YEIMY who presents to the Emergency Department chief complaint of weakness not feeling well. He states that last night he woke up with right shoulder pain. He denies any injuries or trauma to the shoulder. Patient's notes that he since 1 AM yesterday evening he was unable to move his right arm and he states that he got up and he made it to dialysis for his treatment. Patient states that he had continued weakness and inability to use his right arm therefore he came here for further evaluation management. Patient states he has been taking all his medications not missing doses. 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) Anemia in chronic kidney disease Dyspnea Secondary renal hyperparathyroidism Abdominal wall cellulitis Thrombosis of kidney dialysis arteriovenous graft COVID-19 virus detected (10/02/21) Dental caries Dialysis AV fistula malfunction Postoperative complete heart block (08/21/21) Hypotension of hemodialysis Pain of right lower extremity Medication side effects Chronic ulcer of back Sepsis Non-healing non-surgical wound Daily headache detention current use of 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 Mitral valve annular calcification Central retinal artery occlusion of left eye (10/09/20) History of non-ST elevation myocardial infarction (NSTEMI) (11/08/19) 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 History of bacterial endocarditis Mechanical complication of arteriovenous fistula surgically created Obstructive sleep apnea Non compliance w medication regimen Nonrheumatic mitral valve stenosis with insufficiency 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) Atrial flutter with rapid ventricular response (07/2020) Essential (primary) hypertension History of venous thromboembolism History of pulmonary embolus (PE) Bilateral carotid artery stenosis Paroxysmal atrial fibrillation (06/10/20) Unspecified symptoms and signs involving cognitive functions and awareness (04/05/20) 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) Expressive aphasia (04/05/20) ESRD on hemodialysis Dialysis patient Chronic kidney disease-mineral and bone disorder Chronic pelvic pain in male Pelvic mass Hematuria History of blood clots Hearing loss 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 due to renal insufficiency Morbidly obese Home Medications ?Medication ?Instructions ?Recorded ?Last Taken ?Type BP monitor #1 ea 10/19/21 Unknown Rx aspirin 81 mg tablet,delayed 81 mg PO DAILY heart health 10/29/21 02/21/25 History release (Adult Aspirin Regimen) sucroferric oxyhydroxide 500 mg 1,500 mg PO TIDCM phosphate binder 11/11/23 02/21/25 History chewable tablet (Velphoro) warfarin 5 mg tablet 5 mg PO DAILY blood thinner #90 05/07/24 Unknown Rx tabs cinacalcet 60 mg tablet 90 mg PO DAILY hormones 07/30/24 02/20/25 History levothyroxine 25 mcg tablet 25 mcg PO DAILY disorder of 07/30/24 02/21/25 History thyroid gland vitamin B complex-vitamin C-folic 1 tab PO DAILY vitamin 07/30/24 02/21/25 History acid 0.8 mg tablet (Juju-Tashi) midodrine 10 mg tablet 10 mg PO TID blood pressure #90 03/01/25 Unknown Rx tabs oxycodone 5 mg tablet 5 mg PO BID PRN 03/01/25 Unknown History Allergy/AdvReac Type Severity Reaction Status Date / Time trazodone Allergy Severe Jittery/Sha Verified 03/02/25 18:26 ky gabapentin Allergy Other Verified 03/02/25 18:26 Family History Other Adopted Surgical History Hx of mitral valve replacement with mechanical valve S/P PICC central line placement (06/15/24) History of angioplasty of peripheral vessel (08/28/21) History of tooth extraction, class IV edentulism (09/11/21) History of right and left heart catheterization (08/16/21) Mechanical complication of dialysis catheter History of herniorrhaphy Status post creation of arteriovenous fistula History of cardioversion (12/02/18) History of repair of congenital cleft palate History of left heart catheterization (09/17/18) history of cather replacement Social History household members: none Smoking Status: Never smoker alcohol intake: never substance use type: marijuana what type of physical activity do you participate in: none ROS ROS ED ROS Narrative Constitutional: Denies fevers, chills, headaches Eyes: Denies change in vision double and blurry vision Cardiovascular: Denies chest pain Respiratory: Denies shortness of breath Abdomen: Denies nausea vomit diarrhea abdominal pain : Denies urinary symptoms Neurological: Denies numbness, wheeze, tingling Musculoskeletal: Denies back pain Skin: States that he has chronic wounds on his abdomen s EXAM Physical Exam Narrative Exam Narrative: General: Patient lying in bed rest comfortably did not appear to be acute distress Head: Atraumatic, normocephalic Eyes: PERRL bilaterally, EOMI bilateral, no conjunctival injection noted Neck: Soft and supple, trachea midline Cardiovascular: Patient tachycardic with a regular rhythm Respiratory: Clear to auscultation bilaterally Abdomen: Soft, no tenderness palpation no rebound or guarding on exam Extremities: Patient has +2/5 strength noted in the right upper extremity and +3/5 strength noted in the right lower extremity, +4/5 strength noted in the left upper and lower extremity Neurological: Patient follow commands knew that he was at [facility] year is 2024. NIH of 5 Skin: Warm, dry Const Vital Signs: 03/02/25 18:26 03/02/25 18:58 03/02/25 19:25 Temperature 97.5 F L Temperature Source Temporal Pulse Rate 130 H Respiratory Rate 20 H Respiratory Effort Normal Non-Labored Respiratory Pattern Normal Blood Pressure 87/68 L Blood Pressure Mean 74 Pulse Ox 96 99 Oxygen Delivery Method Room Air Room Air 03/02/25 19:39 03/02/25 20:35 03/02/25 20:35 Temperature 98.9 F Temperature Source Oral Pulse Rate 130 H 110 H Respiratory Rate 28 H 30 H Respiratory Effort Respiratory Pattern Blood Pressure 87/57 L 90/57 L Blood Pressure Mean 67 68 Pulse Ox 99 99 99 Oxygen Delivery Method Room Air Room Air 03/02/25 20:35 03/02/25 20:39 03/02/25 20:52 Temperature 98.3 F 98 F Temperature Source Oral Oral Pulse Rate 110 H 130 H 118 H Respiratory Rate 18 28 H 17 Respiratory Effort Respiratory Pattern Blood Pressure 90/57 L 90/57 L 94/48 L Blood Pressure Mean 68 68 63 Pulse Ox 99 99 96 Oxygen Delivery Method Room Air 03/02/25 20:59 03/02/25 21:29 03/02/25 21:30 Temperature Temperature Source Pulse Rate 118 H 118 H 120 H Respiratory Rate 19 H 22 H 18 Respiratory Effort Respiratory Pattern Blood Pressure 94/48 L 114/59 L 114/59 L Blood Pressure Mean 63 77 77 Pulse Ox 95 96 96 Oxygen Delivery Method Room Air Room Air Room Air 03/02/25 22:00 03/02/25 22:29 03/02/25 23:00 Temperature 98.3 F Temperature Source Pulse Rate 121 H 121 H 120 H Respiratory Rate 18 18 19 H Respiratory Effort Respiratory Pattern Blood Pressure 98/67 97/77 125/70 H Blood Pressure Mean 77 83 88 Pulse Ox 99 99 98 Oxygen Delivery Method 03/03/25 00:00 Temperature Temperature Source Pulse Rate 120 H Respiratory Rate 18 Respiratory Effort Respiratory Pattern Blood Pressure 101/68 Blood Pressure Mean 79 Pulse Ox 99 Oxygen Delivery Method MDM MDM MDM Narrative Medical decision making narrative: Patient is a 44-year-old male who presented to the emergency department with a chief complaint of weakness, right shoulder pain right knee pain and not feeling well. On the differential diagnose includes but not limited to UTI, pneumonia, electrolyte abnormality, CVA, large vessel occlusion. Sepsis workup was started as well as a stroke workup. He was not a tenecteplase candidate as his last known well was 1 AM yesterday morning. Patient was evaluated by teleneurology and they agree given his significant right upper extremity weakness and right lower extremity weakness they would recommend admission for further workup and evaluation. Patient CBC reviewed showed no evidence leukocytosis white blood count 8.9, he was 8.7, platelet count was 269. Patient's INR was 1.8, PT of 21.6. Patient's sodium was 138, potassium 3.3, anion gap of 20, creatinine was 6.42 as underlying kidney disease on dialysis, lactic acid elevated 3.6, troponin elevated to 11 however he is chronic elevated troponins, EKG reviewed showed sinus rhythm with a rate of 130 beats per minutes. Delta troponin pending. Patient's chest x-ray reviewed showed mild pulmonary vascular congestion right lower lobe opacity is not excluded. Patient was given IV antibiotics Rocephin and azithromycin at 2006. Patient's CT head and brain without contrast showed no acute intracranial abnormality. Patient CTA head and neck reviewed showed no acute arterial abnormalities of the head or neck. Atherosclerosis as above. He has subcentimeter peripherally calcified thyroid nodules. Patient's x-ray of his knee reviewed showed mild fat stranding and soft tissue's which may represent edema no acute osseous abnormalities. Patient's shoulder x-ray reviewed showed a limited exam however there is widening of the glenohumeral interval and posterior relationship of the humeral head relative the glenoid concerning for posterior shoulder dislocation or subluxation. Joint effusion may contribute to this appearance. Questionable interval decrease in the glenoid bone stock since radiographs of 2020 which may be artifactual infection is not excluded. Widening of the acromioclavicular interval is slightly increased in prominence compared to radiographs in 202. Therefore added a CT of his right shoulder on. Patient CT of the right shoulder reviewed showed no evidence of shoulder fracture or dislocation there is markedly irregular appearance of the right glenoid with widening of the glenoid fossa. Right shoulder joint effusion noted. Irregularity of the vertebral body endplates from C2-C4 which is new since 2021 could be degenerative or infectious consider MRI if there is concern for discitis osteomyelitis. Right axillary lymphadenopathy. Solid pulmonary nodule in the right upper lobe measuring [address] chest 6 to 12 months. Discussed case with hospitalist Dr. Smith who accept patient for admission. Patient is agreeable to plan all course concerns answered. Lab Data Labs: Laboratory Results - last 24 hr 03/02/25 03/02/25 19:09 23:23 WBC 8.9 RBC 3.09 L Hgb 8.7 L Hct 28.1 L MCV 90.9 MCH 28.2 MCHC 31.0 L RDW Std Deviation 59.2 H RDW Coeff of Lance 17.5 H Plt Count 269 MPV 10.2 Immature Gran % (Auto) 0.700 Neut % (Auto) 75.2 H Lymph % (Auto) 7.3 L [place] % (Auto) 15.1 H Eos % (Auto) 1.5 Baso % (Auto) 0.2 Absolute Neuts (auto) 6.7 Absolute Lymphs (auto) 0.65 L Nucleated RBC % 0 PT 21.6 H INR 1.8 APTT 44.7 H Sodium 138 Potassium 3.3 Chloride 93 L Carbon Dioxide 25.3 Anion Gap 20 H BUN 23 H Creatinine 6.42 H Est GFR (MDRD) Non-Af 10 L BUN/Creatinine Ratio 3.5 L Glucose 128 H Lactic Acid 3.6 H* 2.9 H* Calcium 8.7 Total Bilirubin 0.63 AST 33 ALT 16 Alkaline Phosphatase 179 H Troponin T High Sens 211 H* D Total Protein 9.4 H Albumin 3.7 Globulin 5.7 H Albumin/Globulin Ratio 0.6 L Radiography Diagnostic Testing: Clinical Impression(s) from Imaging Studies Chest X-Ray 03/02/25 19:35 IMPRESSION: Mild pulmonary vascular congestion. Right lower lobe opacity not excluded. Reading Location: [id number] Brain CT 03/02/25 20:29 IMPRESSION: No acute intracranial abnormality. Stroke called to the ordering provider will be done after reading the CTA. Reading Location: [id number] Head/Neck CTA 03/02/25 20:30 IMPRESSION: No acute arterial abnormalities of the head or neck. Atherosclerosis as above. Subcentimeter peripherally calcified thyroid nodules. Critical results were communicated to the ordering provider at 9:10 p.m.. Reading Location: [id number] Knee X-Ray 03/02/25 21:45 IMPRESSION: No acute osseous abnormalities. Mild fat stranding of the soft tissues which may represent edema. Reading Location: [id number] Shoulder X-Ray 03/02/25 21:45 IMPRESSION: 1.Limited exam. Widening of the glenohumeral interval and posterior relationship of the humeral head relative to the glenoid, concerning for posterior shoulder subluxation or dislocation. Joint effusion may contribute to this appearance. 2. Questionable interval decrease in glenoid bone stock since radiographs in 2020, which may be artifactual. Infection is not excluded. 3. Widening of the acromiohumeral interval is slightly increased in prominence compared to radiographs in 2020. Reading Location: [id number] Upper Extremity CT 03/02/25 22:29 IMPRESSION: 1. No evidence of a shoulder fracture or dislocation. There is markedly irregular appearance of the right glenoid, with widening of the glenoid fossa. 2. Right shoulder joint effusion. Consider aspiration if there is concern for infection. 3. Irregularity of the vertebral body endplates from C2 through C4, which is new since 2021 and could be degenerative or infectious. Consider MRI if there is concern for discitis-osteomyelitis. 4. Right axillary lymphadenopathy. 5. Solid pulmonary nodule in the right upper lobe measuring [address] chest in 6-12 months per Fleischner society guidelines. Yellow Alert: Impression above The critical information above was relayed directly by me by telephone to Mau De Souza on 03/02/2025 at 11:16 pm with readback verification. Reading Location: [facility] Discharge Plan Triage Chief Complaint: Weakness ED Provider: Mau De Souza Dx/Rx/DC Orders Clinical Impression: Pain in right shoulder, Pneumonia, Right arm weakness, Right leg weakness Prescriptions: No Action aspirin [Adult Aspirin Regimen] 81 mg tablet,delayed release (DR/EC) 81 mg PO DAILY levothyroxine 25 mcg tablet 25 mcg PO DAILY cinacalcet 60 mg tablet 90 mg PO DAILY Juju-Tashi 0.8 mg tablet 1 tab PO DAILY oxycodone 5 mg tablet 5 mg PO BID PRN midodrine 10 mg tablet 10 mg PO TID Qty: 90 3RF Velphoro 500 mg tablet,chewable 1,500 mg PO TIDCM Patient Comments: CRUSH OR CHEW AND SWALLOW 3 TABLETS 3 TIMES A DAY WITH MEALS (DME) BP monitor large cuff See Rx Instructions .Route .MEDSUPPLY Qty: 1 0RF Rx Instructions: As directed warfarin 5 mg tablet 5 mg PO DAILY Qty: 90 3RF Protocol: Dose Management Condition: Friday Dose/Route: 5 mg Instruction: 1 x 5 mg tablet Condition: Friday Dose/Route: 2.5 mg Instruction: 0.5 x 5 mg tablets Condition: Friday Dose/Route: 2.5 mg Instruction: 0.5 x 5 mg tablets Condition: Friday Dose/Route: 2.5 mg Instruction: 0.5 x 5 mg tablets Condition: Dose/Route: 2.5 mg Instruction: 0.5 x 5 mg tablets Condition: Friday Dose/Route: 5 mg Instruction: 1 x 5 mg tablet Condition: Friday Dose/Route: 5 mg Instruction: 1 x 5 mg tablet Protocol Text: Adjustment Start Date: Friday03/01/25 INR Value: 2.2 INR Date: 03/01/25 Recheck Date: 03/09/25 Primary Care Provider: Care Physician,No Primary Referrals: Care Physician,No Primary [Primary Care Provider] - Print Language: Pakistani Disposition Disposition: [facility]
--- NOTE | 2025-03-02 23:57 | PCM.HP.STD ---
HPI - General General Date of Admission: 03/02/25 Date of Service: 03/02/25 Chief Complaint: RU/RL pain, RUE weakness concerns HPI Narrative The patient is a 44 y/o M w/ PMHx: Morbid obesity, Valvular Heart Disease s/p MV mechanical valve on coumadin therapy, Chronic orthostasis on midodrine, ESRD on HD MWF following with Dr. Nora sauer, PAF, Chronic anemia/AOCD/Fe deficiency anemia, Hypothyroidism, Chronic wounds who presents to the [facility] ED on 03/02/2025 secondary to persistent right shoulder pain that awoke him during his sleep the evening prior with general fatigue and malaise although he was able to tolerate a full dialysis treatment on day of presentation but given discomfort prompted ED evaluation. Workup in the ED included T97.5, heart rate 130, BP 87/68, respiratory rate 20, 96% on room air with most recent repeat vitals T98.3, heart 130, BP 90/57, respiratory rate 28, 99% on room air, CBC with WBC 8.9, he 1 8.7, MCV 90.9, platelet 269 with lymphopenia, no marked left shift noted, coags with PT 21.6, PTT 44.7, CMP with chloride 93, anion gap 20, BUN/creatinine 23/6.42, GFR 10, glucose 128, hepatic profile not marked appearing, lactic acid 3.6, troponin 211 noted to be elevated previously also, chest x-ray with mild pulmonary vascular congestion with inability to exclude a right lower lobe opacity but difficult given habitus, CT brain with no acute intracranial abnormality, CTA head and neck no acute arterial abnormality of the head or neck, atherosclerosis, subcentimeter peripherally calcified thyroid nodules, plain film of the right knee with no acute osseous abnormality with mild fat stranding of the soft tissue possibly edema, plain film of the right shoulder with widening of the glenohumeral interval and posterior relationship of the humeral head relative the glenoid concerning for posterior shoulder subluxation or dislocation, questionable interval decrease in glenoid bone stock possibly artifactual, widening of the acromiohumeral interval slightly increased in prominence compared to previous radiographs, CT right shoulder with no evidence of shoulder fracture dislocation, markedly irregular appearance of the right glenoid with widening of the glenoid fossa with right shoulder joint effusion, regular vertebral body endplates from C2-C4 new since 2021 possibly degenerative, right axillary lymphadenopathy, solid pulm nodule right upper lobe, EKG []. Stroke alert was initiated as patient had onset while in the ED of right arm weakness occurring at approximately 2033 but confirmed per nursing staff had been normal previously and upon their evaluation also subjectively noted he felt weak in the right leg however patient reporting also right knee pain and also noted right arm pain in the evening previously with no other neurological symptoms with NIH stroke assessment for for some effort against gravity for right upper and lower extremity only with neurology noting possible ischemic stroke versus pain related with recommendation for stroke workup to rule out stroke versus musculoskeletal etiology. 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 Mitral valve annular calcification Central retinal artery occlusion of left eye (10/09/20) History of non-ST elevation myocardial infarction (NSTEMI) (11/08/19) 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 History of bacterial endocarditis Mechanical complication of arteriovenous fistula surgically created Obstructive sleep apnea Non compliance w medication regimen Nonrheumatic mitral valve stenosis with insufficiency 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) Atrial flutter with rapid ventricular response (07/2020) Essential (primary) hypertension History of venous thromboembolism History of pulmonary embolus (PE) Bilateral carotid artery stenosis Paroxysmal atrial fibrillation (06/10/20) Unspecified symptoms and signs involving cognitive functions and awareness (04/05/20) 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) Expressive aphasia (04/05/20) ESRD on hemodialysis Dialysis patient Chronic kidney disease-mineral and bone disorder Chronic pelvic pain in male Pelvic mass Hematuria History of blood clots Hearing loss 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 due to renal insufficiency Morbidly obese Home Medications ?Medication ?Instructions ?Recorded ?Last Taken ?Type BP monitor #1 ea 07/17/21 Unknown Rx aspirin 81 mg tablet,delayed 81 mg PO DAILY heart health 10/29/21 02/21/25 History release (Adult Aspirin Regimen) sucroferric oxyhydroxide 500 mg ,500 mg PO TIDCM phosphate binder 11/11/23 02/21/25 History chewable tablet (Velphoro) warfarin 5 mg tablet 5 mg PO DAILY blood thinner #90 05/07/24 Unknown Rx tabs cinacalcet 60 mg tablet 90 mg PO DAILY hormones 07/30/24 02/20/25 History levothyroxine 25 mcg tablet 25 mcg PO DAILY disorder of 07/30/24 02/21/25 History thyroid gland vitamin B complex-vitamin C-folic 1 tab PO DAILY vitamin 07/30/24 02/21/25 History acid 0.8 mg tablet (Juju-Tashi) midodrine 10 mg tablet 10 mg PO TID blood pressure #90 03/01/25 Unknown Rx tabs oxycodone 5 mg tablet 5 mg PO BID PRN 03/01/25 Unknown History Allergy/AdvReac Type Severity Reaction Status Date / Time trazodone Allergy Severe Jittery/Sha Verified 03/02/25 18:26 ky gabapentin Allergy Other Verified 03/02/25 18:26 Family History Other Adopted adopted (Does not know any of his biological family history.) Surgical History Hx of mitral valve replacement with mechanical valve S/P PICC central line placement (06/15/24) History of angioplasty of peripheral vessel (08/28/21) History of tooth extraction, class IV edentulism (09/11/21) History of right and left heart catheterization (08/16/21) Mechanical complication of dialysis catheter History of herniorrhaphy Status post creation of arteriovenous fistula History of cardioversion (12/02/18) History of repair of congenital cleft palate History of left heart catheterization (09/17/18) history of cather replacement Social History household members: none Smoking Status: Never smoker alcohol intake: never substance use type: marijuana what type of physical activity do you participate in: none ROS ROS Narrative Admission Review of Systems: CONSTITUTIONAL: No weight loss, fever, chills, + weakness or fatigue. HEENT: Eyes: No visual loss, blurred vision, double vision or yellow sclerae. Ears, Nose, Throat: No hearing loss, sneezing, congestion, runny nose or sore throat. SKIN: No rash or itching, lesions, wounds. CARDIOVASCULAR: No chest pain, chest pressure or chest discomfort, palpitations, edema, orthopnea, syncopal events. RESPIRATORY: No shortness of breath, cough or sputum, wheezing, hemoptysis. GASTROINTESTINAL: No anorexia, nausea, vomiting or diarrhea, abdominal pain, melena, BRBPR. GENITOURINARY: No dysuria, frequency, urgency or retention. NEUROLOGICAL: + Concern for right upper and lower extremity weakness although certainly could be pain related but uncertain. No headache, dizziness, syncope, paralysis, ataxia, numbness or tingling in the extremities, focal weakness, change in bowel or bladder control, seizure. MUSCULOSKELETAL: + muscle, back pain, joint pain or stiffness. HEMATOLOGIC: + Chronic anemia, easy bleeding/bruising. LYMPHATICS: No enlarged nodes. No history of splenectomy. PSYCHIATRIC: No history of depression or anxiety. ENDOCRINOLOGIC: No reports of sweating, cold or heat intolerance. No polyuria or polydipsia. ALLERGIES: No history of asthma, hives, eczema or rhinitis. Vital Signs Vital Signs Vital Signs: 03/02/25 18:26 03/02/25 18:58 03/02/25 19:25 Temperature 97.5 F L Temperature Source Temporal Pulse Rate 130 H Respiratory Rate 20 H Respiratory Effort Normal Non-Labored Respiratory Pattern Normal Blood Pressure 87/68 L Blood Pressure Mean 74 Pulse Ox 96 99 Oxygen Delivery Method Room Air Room Air 03/02/25 19:39 03/02/25 20:35 03/02/25 20:35 Temperature 98.9 F Temperature Source Oral Pulse Rate 130 H 110 H Respiratory Rate 28 H 30 H Respiratory Effort Respiratory Pattern Blood Pressure 87/57 L 90/57 L Blood Pressure Mean 67 68 Pulse Ox 99 99 99 Oxygen Delivery Method Room Air Room Air 03/02/25 20:35 03/02/25 20:39 03/02/25 20:52 Temperature 98.3 F 98 F Temperature Source Oral Oral Pulse Rate 110 H 130 H 118 H Respiratory Rate 18 28 H 17 Respiratory Effort Respiratory Pattern Blood Pressure 90/57 L 90/57 L 94/48 L Blood Pressure Mean 68 68 63 Pulse Ox 99 99 96 Oxygen Delivery Method Room Air 03/02/25 20:59 03/02/25 21:29 03/02/25 21:30 Temperature Temperature Source Pulse Rate 118 H 118 H 120 H Respiratory Rate 19 H 22 H 18 Respiratory Effort Respiratory Pattern Blood Pressure 94/48 L 114/59 L 114/59 L Blood Pressure Mean 63 77 77 Pulse Ox 95 96 96 Oxygen Delivery Method Room Air Room Air Room Air 03/02/25 22:00 03/02/25 22:29 03/02/25 23:00 Temperature 98.3 F Temperature Source Pulse Rate 121 H 121 H 120 H Respiratory Rate 18 18 19 H Respiratory Effort Respiratory Pattern Blood Pressure 98/67 97/77 125/70 H Blood Pressure Mean 77 83 88 Pulse Ox 99 99 98 Oxygen Delivery Method Weight Weight: 268 lb 15.423 oz Body Mass Index (BMI) 38.5 Physical Exam Narrative Physical Examination: General: Awake, alert, oriented x 3 and cooperative, seated upright in the ED bed, notes ongoing discomfort to the right knee and right shoulder, with discussions he is moving his right upper extremity but primarily moves it at the elbow because of discomfort he notes. Skin: Normal color, normal turgor, no icterus, no cyanosis except occasional abrasion, stasis skin changes. HEENT: AT/NC, EOMI, PERRLA, mildly dry MM, poor dentition, no carotid bruits, difficult to discern JVD given thickened neck. Lungs: Diminished, greater bases, mildly decreased effort, no rales, ronchi or wheezing. Heart: Regular rate and rhythm; no gallop, rub audible. Abdomen: Soft, obese, NTTP, ND, distant normal BS, difficult to discern HSM given habitus. Extremities: No cyanosis, no clubbing, chronic distal edema, difficulty with right lower extremity movement secondary to suspected primarily pain elicited with attempted movement of the shoulder with reproducible discomfort with palpation but able to move the right arm at the elbow joint without issue, discomfort with palpation also of the knee and with movement passively of the knee. Neurological: Patient awake, alert, oriented as noted, cognitive function intact; pupils equally reactive to light and accommodation, cranial nerves grossly normal, moving all 4 extremities except limited movement right upper extremity and right lower extremity and it is unclear if this is from pain or truly weakness, sensation intact, unable to perform finger-nose or [id number] for the right side but this is again unclear if because of pain or true deficit. Psychiatric: Affect appears fatigued, no acute evidence of depressive or anxiety feelings. Results Lab / Micro Data 03/02/25 19:09 03/02/25 19:09 Labs: Laboratory Results - last 24 hr 03/02/25 19:09: WBC 8.9, RBC 3.09 L, Hgb 8.7 L, Hct 28.1 L, MCV 90.9, MCH 28.2, MCHC 31.0 L, RDW Std Deviation 59.2 H, RDW Coeff of Lance 17.5 H, Plt Count 269, MPV 10.2, Immature Gran % (Auto) 0.700, Neut % (Auto) 75.2 H, Lymph % (Auto) 7.3 L, Juab % (Auto) 15.1 H, Eos % (Auto) 1.5, Baso % (Auto) 0.2, Absolute Neuts (auto) 6.7, Absolute Lymphs (auto) 0.65 L, Nucleated RBC % 0, PT 21.6 H, INR 1.8, APTT 44.7 H, Sodium 138, Potassium 3.3, Chloride 93 L, Carbon Dioxide 25.3, Anion Gap 20 H, BUN 23 H, Creatinine 6.42 H, Est GFR (MDRD) Non-Af 10 L, BUN/Creatinine Ratio 3.5 L, Glucose 128 H, Lactic Acid 3.6 H*, Calcium 8.7, Total Bilirubin 0.63, AST 33, ALT 16, Alkaline Phosphatase 179 H, Troponin T High Sens 211 H* D, Total Protein 9.4 H, Albumin 3.7, Globulin 5.7 H, Albumin/Globulin Ratio 0.6 L Micro: Microbiology 03/02/25 19:12 Mucosa - Nose SARS-CoV-2, Influenza & RSV (PCR) - Final Imaging Radiology Impression Chest X-Ray 03/02/25 19:35 IMPRESSION: Mild pulmonary vascular congestion. Right lower lobe opacity not excluded. Reading Location: [id number] Brain CT 03/02/25 20:29 IMPRESSION: No acute intracranial abnormality. Stroke called to the ordering provider will be done after reading the CTA. Reading Location: [id number] Head/Neck CTA 03/02/25 20:30 IMPRESSION: No acute arterial abnormalities of the head or neck. Atherosclerosis as above. Subcentimeter peripherally calcified thyroid nodules. Critical results were communicated to the ordering provider at 9:10 p.m.. Reading Location: [place] [address] Knee X-Ray 03/02/25 21:45 IMPRESSION: No acute osseous abnormalities. Mild fat stranding of the soft tissues which may represent edema. Reading Location: [id number] Shoulder X-Ray 03/02/25 21:45 IMPRESSION: 1.Limited exam. Widening of the glenohumeral interval and posterior relationship of the humeral head relative to the glenoid, concerning for posterior shoulder subluxation or dislocation. Joint effusion may contribute to this appearance. 2. Questionable interval decrease in glenoid bone stock since radiographs in 2020, which may be artifactual. Infection is not excluded. 3. Widening of the acromiohumeral interval is slightly increased in prominence compared to radiographs in 2020. Reading Location: [id number] Upper Extremity CT 03/02/25 22:29 IMPRESSION: 1. No evidence of a shoulder fracture or dislocation. There is markedly irregular appearance of the right glenoid, with widening of the glenoid fossa. 2. Right shoulder joint effusion. Consider aspiration if there is concern for infection. 3. Irregularity of the vertebral body endplates from C2 through C4, which is new since 2021 and could be degenerative or infectious. Consider MRI if there is concern for discitis-osteomyelitis. 4. Right axillary lymphadenopathy. 5. Solid pulmonary nodule in the right upper lobe measuring [address] chest in 6-12 months per Fleischner society guidelines. Yellow Alert: Impression above The critical information above was relayed directly by me by telephone to Mau De Souza on 03/02/2025 at 11:16 pm with readback verification. Reading Location: [id number] Assessment & Plan Assessment/Plan (1) Right leg weakness: (2) Right arm weakness: PLAN: Plan The patient is a 44 y/o M w/ PMHx: Morbid obesity, Valvular Heart Disease s/p MV mechanical valve on coumadin therapy, Chronic orthostasis on midodrine, ESRD on HD MWF following with Dr. Nora sauer, PAF, Chronic anemia/AOCD/Fe deficiency anemia, Hypothyroidism, Chronic wounds who presents to the [facility] ED on 03/02/2025 secondary to persistent right shoulder pain that awoke him during his sleep the evening prior with general fatigue and malaise although he was able to tolerate a full dialysis treatment on day of presentation but given discomfort prompted ED evaluation. #1. Right sided upper and lower extremity weakness however confounded by intractable right upper extremity and lower extremity pain thus certainly could be musculoskeletal etiology but uncertain: Will admit to PCU, will obtain MRI Brain, ECHO, PT/OT/Speech/Nutrition evaluation per protocol. Will allow permissive HTN, maintain on asa, fall precautions. Mag, TSH, FLP, HgbA1c requested. Maintain on fall and aspiration precautions. Continue neurology consultation. #2. Intractable right shoulder and right knee pain of unclear etiology: Plain film of the right knee with no obvious acute osseous injury, plain film of the right shoulder with widening of the glenohumeral interval and posterior relationship of the humeral head relative the glenoid concerning for posterior shoulder subluxation or dislocation, questionable interval decrease in glenoid bone stock possibly artifactual, widening of the acromiohumeral interval slightly increased in prominence compared to previous radiographs, CT right shoulder with no evidence of shoulder fracture dislocation, markedly irregular appearance of the right glenoid with widening of the glenoid fossa with right shoulder joint effusion, regular vertebral body endplates from C2-C4 new since 2021 possibly degenerative, suspected musculoskeletal etiology and possibly reason for right-sided perceived weakness but attempted to rule out stroke as noted above, given current presentation we will hold on any anti-inflammatory regimen until stroke ruled out, encouraged Tylenol, judicious pain regimen as needed to avoid altering stroke scale assessment exams, may certainly broaden treatments once stroke evaluation completed, PT/OT consulted as noted above. CRP, ESR, procalcitonin requested, if elevated may need to consider aspiration/Ortho involvement. #3. Questionable right lower lobe opacity, pneumonia which would be concerning for gram-negative/gram-positive organisms given recent prolonged admission with lactic acidosis: Patient with no recent significant pulmonary symptoms since his discharge, lower suspicion however was administered Rocephin and azithromycin in the ED lactic acidosis certainly could be. From dehydration as patient was recently run on dialysis for full-time, very judiciously hydrate given history and trend lactic acid, procalcitonin requested and if this is elevated certainly low threshold to initiate antibiotic therapies however conflicted also given #2 as noted. If concern for pulmonary process does arise would op opt for Zosyn and vancomycin with MRSA screen but await further evaluation. If decision to proceed with antibiotic therapy addition would also obtain urine antigens if any urine output and full respiratory viral panel but again lower suspicion. #4. Subtherapeutic INR: Admission INR 1.8, goal given prosthetic mitral valve 2.5-3.5, recent presentation with admission 01/2025 with acute on chronic anemia with PRBC transfusion at that time, unfortunately given his history we will pulse with an additional dose of Coumadin 5 mg x 1 and continue his evening regimen also with continued close INR trending and low threshold to overlap regimen if not achieving therapeutic level. #5. Chronically elevated troponin: Patient with underlying end-stage renal disease on dialysis with previous chronically elevated troponin, admission troponin to 11, previously has been elevated as well, to be cautious given #1, #2 will continue on telemetry monitoring and will continue to cycle cardiac enzymes. Magnesium level requested. FLP in AM. Echocardiogram requested. On Coumadin with continued INR trending and adjustments as noted. #6. ESRD with associated chronic orthostasis: Currently on hemodialysis MWF, last HD on day of presentation, following w/ Dr. 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 Will continue patient home midodrine regimen. #7. Valvular heart disease: Status post MV replacement with underlying history of mitral stenosis s/p On-X 25/33 mm mechanical with debridement of the severe mitral calcification left cryo maze procedure and left atrial appendage clip, will continue Coumadin with INR trending with goal INR 2.5-3.5. For review of cardiology records patient with cardiac catheterization 07/2021 with demonstrating normal coronary arteries with nondominant right coronary artery at that time. #8. Chronic wounds: Patient with chronic wounds especially recently noted on his upper back complicated by varicose vein that had been previously bleeding noted on recent admission 01/2025, will continue wound care while inpatient with dressing changes and evaluation. #9. PAF: Not on rate or rhythm agents, continue on Coumadin with INR trending especially given prosthetic valve history with goal as noted 2.5-3.5. #10. Chronic anemia/AOCD/Fe deficiency anemia: Admission hemoglobin 8.7, MCV 90.9, baseline hemoglobin primarily 7-8 but has vacillated, during recent presentation dropped 02/24/2020 5-6.2 requiring PRBC transfusion at that time, continue to closely trend. #11. Hypothyroidism with incidentally noted subcentimeter peripherally calcified thyroid nodules: Will continue patient on levothyroxine regimen, encourage continued outpatient evaluation. #12. Morbid Obesity: Weight loss and lifestyle changes encouraged. #13. Incidental pulmonary nodule: CT incidentally noting a solid pulmonary nodule right upper lobe measuring 6 mm, recommend follow-up CT scan outpatient. #14. DVT prophylaxis: Will continue patient on Coumadin with INR trending. #15. CODE STATUS: Full Code. Charges/Coding Visit Charges Inpatient E&M: 01483 Init Hosp L3
[2025-03-03] VITALS (9 sets, daily range): BP systolic 92–145; BP diastolic 65–106; PULSE 56–120; RESP 14–18; TEMP 36.6–36.9; O2SAT 94–100; BMI 37.0; BMI 38.5
[2025-03-03 00:02] LABS: Lactic Acid 2.9 mmol/L (0.0-2.0)
--- NOTE | 2025-03-03 01:00 | MRI_ITS ---
PROCEDURE: BRAIN WITHOUT CONTRAST 03/03/2025 REASON FOR EXAM: ? CVA TECHNIQUE: Noncontrast brain MRI. Multiplanar and multisequence images were obtained. FINDINGS: There is a normal sulcal pattern and gyral configuration. There is no evidence of acute intracranial hemorrhage or infarction. The panda-white differentiation is well preserved. There is no evidence of restricted diffusion. The ventricles and basilar cisterns are normal. There are normal flow voids demonstrated in the recognized intracranial vessels. The cerebellum and brainstem are unremarkable. The cerebellar pontine angles are normal. The craniovertebral junction is normal. The sella and suprasellar regions are normal. The orbits and retro-orbital regions are unremarkable. There is nasal septal deviation to the right. There is a right-sided nasal spur. The paranasal sinuses are clear. The mastoid air cells are clear. There is normal bone marrow signal in the skull base and calvarium. MRI/Brain without Contrast IMPRESSION: 1. No evidence of intracranial pathology. 2. Other findings as noted. Reading Location: [id number]
--- NOTE | 2025-03-03 01:00 | ECHOL_ITS ---
Reason For Study Reason For Study: TIA/CVA Procedure This was a 2D Doppler, Color Flow transthoracic echocardiogram. Limited views were obtained. The study was technically limited. The study was technically difficult. Due to chronic bleeding/leaking wounds and bandages. Parasternal imaging only. Exam performed portable in patient room. Left Ventricle Normal LV size. The estimated ejection fraction is 65 %. Right Ventricle Normal RV size. Normal systolic function. Mitral Valve Prosthetic mitral valve not well-visualized. Not assessed. No mitral valve insufficiency. Stable appearing mechanical mitral valve apparatus. Tricuspid Valve There is no tricuspid stenosis. Trivial tricuspid valve insufficiency. Pulmonary artery systolic pressure is 25 mmHg. Aortic Valve Trisinus/trileaflet aortic valve. There is no aortic stenosis. No aortic valve insufficiency. Medication Negative bubble study by YONATHAN @ [facility] 09/2020, Negative bubble study by YONATHAN @ [facility] 08/2020. MMode/2D Measurements & Calculations LVIDd: 4.0 cm IVSd: 1.1 cm Ao root diam: 3.3 cm LVIDs: 2.2 cm LVPWd: 1.1 cm FS: 44.2 % LA dimension(2D): 3.9 cm Doppler Measurements & Calculations PA V2 max: 88.2 cm/sec TR max george: 215.6 cm/sec PA V2 mean: 66.2 cm/sec TR max P.6 mmHg ECHO/Echo, Limited Study Interpretation Summary Limited study The estimated ejection fraction is 65 %. Ordering Physician: Sarah^Myriam^Alana^ Referring Physician: NO PCP Performed By: Caroline Valero, STUART, RVT
[2025-03-03] MEDS: 0.9% Normal Saline (500mL Bag) 500 ML 75 ML IV (02:13)
[2025-03-03] MEDS: Midodrine HCl 5 MG Tablet 10 MG PO ×3 (02:13→23:04)
[2025-03-03 02:59] LABS: Erythrocyte Sedimentation Rate 48 mm/hr (0-20)
[2025-03-03 03:15] LABS: Magnesium 2.1 mg/dL (1.5-2.2); Phosphorus 5.6 mg/dL (2.7-4.5); Procalcitonin 6.54 ng/mL (<=0.10); Troponin T High Sensitivity 198 ng/L (<=22)
[2025-03-03 04:21] LABS: Absolute Neutrophil Count 7.2 X10^3/uL (2.0-7.7); Basophil# 0.04 X10^3/uL; Basophil% 0.4 % (0-1); Eosinophil# 0.15 X10^3/uL; Eosinophils% 1.5 % (0-5); Hematocrit 25.5 % (40-54); Hemoglobin 7.9 g/dL (13.0-16.5); Lymphocyte % 8.1 % (19-41); Mean Corpuscular Hgb 28.4 pg (27.0-32.0); Mean Corpuscular Volume 91.7 fL (80-94); Monocyte% 17.2 % (0-10); NRBC Flagged by Analyzer 0 % (0-5); Neutrophil # 7.15 X10^3/uL (2.7-7.7); Neutrophil % 72.3 % (47-70); POSITIVE DIFFERENTIAL YES; Platelet Count 253 K/mm3 (150-450); RBC Distribution Width CV 17.6 % (11.6-14.6); RBC Distribution Width SD 59.4 fl (35.1-43.9); Red Blood Count 2.78 M/mm3 (4.6-6.2); White Blood Count 9.9 K/mm3 (4.4-11.0)
[2025-03-03 04:25] LABS: Differential Indicated SCAN CRITERIA MET
[2025-03-03 04:28] LABS: International Normalized Ratio 1.8; Prothrombin Time (Protime)PT. 21.6 SECONDS (11.7-14.9)
[2025-03-03 05:01] LABS: Hemoglobin A1c 5.3 % (<=5.6)
[2025-03-03 05:02] LABS: Troponin T High Sens 2 HR 202 ng/L (<=22)
[2025-03-03 05:13] LABS: Differential Comment SCANNED
[2025-03-03 05:23] LABS: Cholesterol 143 mg/dL (<=200); High Density Lipoprotein 53 mg/dL; Low Density Lipoprotein Calc. 76 mg/dL; Triglycerides 69 mg/dL; Very Low Density Lipoprotein 14 mg/dL (5-40); cholesterol:hdl ratio screen 2.69
[2025-03-03 05:28] LABS: ALB/GLOB Ratio 0.7 RATIO (0.9-2.4); AST(SGOT) 25 U/L (<=37); Alanine Aminotransfer ALT/SGPT 13 U/L (<=46); Albumin, Serum 3.2 g/dL (3.5-5.0); Alkaline Phosphatase 155 U/L (40-129); Anion Gap 19 (5-15); BUN 26 mg/dL (4-19); BUN/Creat Ratio 3.5 RATIO (10-20); Calcium,Total 8.5 mg/dL (7.6-11.0); Carbon Dioxide 22.5 mmol/L (21.0-32.0); Chloride 95 mmol/L (98-108); Creatinine, Serum 7.46 mg/dL (0.70-1.20); EST Glomerular Filtration Rate 9 (>60); Glucose 93 mg/dL (70-99); Potassium 3.8 mmol/L (3.3-5.1); Protein, Total 8.2 g/dL (5.9-8.4); Sodium Level 137 mmol/L (133-145); Total Bilirubin 0.47 mg/dL (0.00-1.30)
[2025-03-03 06:50] LABS: Troponin T High Sens 4 HR 207 ng/L (<=22)
[2025-03-03] MEDS: Levothyroxine 25 MCG TABLET PO (07:09)
[2025-03-03] MEDS: HEPARIN/D5w 25,000 UNITS 25,000 UNITS/250 ML IV.SOLN. 16 UNITS CONT INF (07:12)
[2025-03-03] MEDS: Heparin Injection (Vial) 5,000 UNIT/ML VIAL 9500 UNIT IV (07:12)
--- NOTE | 2025-03-03 07:34 | PCM.RX.CS ---
Consult Antibiotic Management Pharmacy has been consulted to manage selected antibiotic: Vancomycin Type of Intervention Type of Consult: New start Suspected Infection Suspected Infection: Other Prior Doses of Antibiotics Prior Doses of Antibiotics Received/Current Regimen: 03/03/25 @ 1023 Vancomycin 2000mg x1 Labs Labs: Sodium 137 mmol/L (133-145) 03/03/25 04:09 Potassium 3.8 mmol/L (3.3-5.1) 03/03/25 04:09 Chloride 95 mmol/L (98-108) L 03/03/25 04:09 Carbon Dioxide 22.5 mmol/L (21.0-32.0) 03/03/25 04:09 Anion Gap 19 (5-15) H 03/03/25 04:09 BUN 26 mg/dL (4-19) H 03/03/25 04:09 Creatinine 7.46 mg/dL (0.70-1.20) H* 03/03/25 04:09 Est GFR (MDRD) Non-Af 9 (>60) L 03/03/25 04:09 BUN/Creatinine Ratio 3.5 RATIO (10-20) L 03/03/25 04:09 Glucose 93 mg/dL (70-99) 03/03/25 04:09 Microbiology Microbiology: Microbiology 03/02/25 19:12 Mucosa - Nose SARS-CoV-2, Influenza & RSV (PCR) - Final Dosing Weight Weight used for dosin kg Estimated Creatinine Clearance Estimated Creatinine Clearance: 17 Goal Trough Goal Trough: 15-20 mcg/mL Pharmacy Plan for Drug Dosing Pharmacy Plan for Drug Dosing: Random Vancomycin level scheduled for 03/04/25 @ 0800 Pharmacy Service will continue to monitor and adjust dosing as required. Date/Time Labs Ordered Labs to be done on [date and time ordered]: 03/04/25 @ 0800
[2025-03-03] MEDS: HYDROmorphone 0.5 MG/0.5 ML SYRINGE IV (07:59)
--- NOTE | 2025-03-03 07:59 | CONS.ORTHO ---
HPI Consult Data Date of Consult: 03/03/25 HPI Narrative Reason for Consultation: Right shoulder, right knee pain HPI Narrative: REJI SPAIN, is a 44 M who presented last evening to [facility] emergency department with acute onset right shoulder pain that awoke him from sleep the evening prior to emergency department presentation. Denies any history of problems with his right shoulder. He has past medical history of Morbid obesity, Valvular Heart Disease s/p MV mechanical valve on coumadin therapy, Chronic orthostasis on midodrine, ESRD on HD MWF following with Dr. Nora sauer, PAF, Chronic anemia/AOCD/Fe deficiency anemia, Hypothyroidism, Chronic wounds. He denies any fevers, chills, nausea vomiting, chest pain shortness of breath. In the emergency department, patient was noted to have decreased use of his right upper extremity and a stroke alert was called. He is on Coumadin and this has been held. He is on a heparin drip currently. I was asked to see the patient by the hospitalist. 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) Anemia in chronic kidney disease Dyspnea Secondary renal hyperparathyroidism Abdominal wall cellulitis Thrombosis of kidney dialysis arteriovenous graft COVID-19 virus detected (10/02/21) Dental caries Dialysis AV fistula malfunction Postoperative complete heart block (08/21/21) Hypotension of hemodialysis Pain of right lower extremity Medication side effects Chronic ulcer of back Sepsis Non-healing non-surgical wound Daily headache intermediate current use of 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 Mitral valve annular calcification Central retinal artery occlusion of left eye (10/09/20) History of non-ST elevation myocardial infarction (NSTEMI) (11/08/19) 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 History of bacterial endocarditis Mechanical complication of arteriovenous fistula surgically created Obstructive sleep apnea Non compliance w medication regimen Nonrheumatic mitral valve stenosis with insufficiency 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) Atrial flutter with rapid ventricular response (07/2020) Essential (primary) hypertension History of venous thromboembolism History of pulmonary embolus (PE) Bilateral carotid artery stenosis Paroxysmal atrial fibrillation (06/10/20) Unspecified symptoms and signs involving cognitive functions and awareness (04/05/20) 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) Expressive aphasia (04/05/20) ESRD on hemodialysis Dialysis patient Chronic kidney disease-mineral and bone disorder Chronic pelvic pain in male Pelvic mass Hematuria History of blood clots Hearing loss 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 due to renal insufficiency Morbidly obese Home Medications ?Medication ?Instructions ?Recorded ?Last Taken ?Type BP monitor #1 ea 07/17/21 Unknown Rx aspirin 81 mg tablet,delayed 81 mg PO DAILY heart health 10/29/21 02/24/25 History release (Adult Aspirin Regimen) sucroferric oxyhydroxide 500 mg 1,500 mg PO TIDCM phosphate binder 11/11/23 03/01/25 History chewable tablet (Velphoro) warfarin 5 mg tablet 5 mg PO DAILY blood thinner #90 05/07/24 03/01/25 Rx tabs cinacalcet 60 mg tablet 90 mg PO DAILY hormones 07/30/24 03/02/25 History levothyroxine 25 mcg tablet 25 mcg PO DAILY disorder of 07/30/24 03/02/25 History thyroid gland vitamin B complex-vitamin C-folic 1 tab PO DAILY vitamin 07/30/24 02/21/25 History acid 0.8 mg tablet (Juju-Tashi) midodrine 10 mg tablet 10 mg PO TID blood pressure #90 03/01/25 02/28/25 Rx tabs oxycodone 5 mg tablet 5 mg PO BID PRN pain 03/01/25 03/01/25 History Allergy/AdvReac Type Severity Reaction Status Date / Time trazodone Allergy Severe Jittery/Sha Verified 03/03/25 01:34 ky gabapentin Allergy Other Verified 03/03/25 01:34 Family History Other Adopted Surgical History Hx of mitral valve replacement with mechanical valve S/P PICC central line placement (06/15/24) History of angioplasty of peripheral vessel (08/28/21) History of tooth extraction, class IV edentulism (09/11/21) History of right and left heart catheterization (08/16/21) Mechanical complication of dialysis catheter History of herniorrhaphy Status post creation of arteriovenous fistula History of cardioversion (12/02/18) History of repair of congenital cleft palate History of left heart catheterization (09/17/18) history of cather replacement Social History household members: none Smoking Status: Never smoker alcohol intake: never substance use type: marijuana what type of physical activity do you participate in: none ROS ROS Narrative 12 point review of systems obtained, negative as otherwise noted in HPI. Vital Signs Vital Signs Vital Signs: 03/02/25 18:26 03/02/25 18:58 03/02/25 19:25 Temperature 97.5 F L Temperature Source Temporal Pulse Rate 130 H Respiratory Rate 20 H Respiratory Effort Normal Non-Labored Respiratory Depth Respiratory Pattern Normal Blood Pressure 87/68 L Blood Pressure Mean 74 Blood Pressure Source Blood Pressure Position Blood Pressure Location Pulse Ox 96 99 Oxygen Delivery Method Room Air Room Air 03/02/25 19:39 03/02/25 20:35 03/02/25 20:35 Temperature 98.9 F Temperature Source Oral Pulse Rate 130 H 110 H Respiratory Rate 28 H 30 H Respiratory Effort Respiratory Depth Respiratory Pattern Blood Pressure 87/57 L 90/57 L Blood Pressure Mean 67 68 Blood Pressure Source Blood Pressure Position Blood Pressure Location Pulse Ox 99 99 99 Oxygen Delivery Method Room Air Room Air 03/02/25 20:35 03/02/25 20:39 03/02/25 20:52 Temperature 98.3 F 98 F Temperature Source Oral Oral Pulse Rate 110 H 130 H 118 H Respiratory Rate 18 28 H 17 Respiratory Effort Respiratory Depth Respiratory Pattern Blood Pressure 90/57 L 90/57 L 94/48 L Blood Pressure Mean 68 68 63 Blood Pressure Source Blood Pressure Position Blood Pressure Location Pulse Ox 99 99 96 Oxygen Delivery Method Room Air 03/02/25 20:59 03/02/25 21:29 03/02/25 21:30 Temperature Temperature Source Pulse Rate 118 H 118 H 120 H Respiratory Rate 19 H 22 H 18 Respiratory Effort Respiratory Depth Respiratory Pattern Blood Pressure 94/48 L 114/59 L 114/59 L Blood Pressure Mean 63 77 77 Blood Pressure Source Blood Pressure Position Blood Pressure Location Pulse Ox 95 96 96 Oxygen Delivery Method Room Air Room Air Room Air 03/02/25 22:00 03/02/25 22:29 03/02/25 23:00 Temperature 98.3 F Temperature Source Pulse Rate 121 H 121 H 120 H Respiratory Rate 18 18 19 H Respiratory Effort Respiratory Depth Respiratory Pattern Blood Pressure 98/67 97/77 125/70 H Blood Pressure Mean 77 83 88 Blood Pressure Source Blood Pressure Position Blood Pressure Location Pulse Ox 99 99 98 Oxygen Delivery Method 03/03/25 00:00 03/03/25 01:00 03/03/25 01:00 Temperature 97.9 F Temperature Source Oral Pulse Rate 120 H 118 H Respiratory Rate 18 16 Respiratory Effort Normal Non-Labored Respiratory Depth Normal Respiratory Pattern Normal Blood Pressure 101/68 113/65 Blood Pressure Mean 79 81 Blood Pressure Source Monitor Blood Pressure Position Sitting Blood Pressure Location Left Arm Pulse Ox 99 100 Oxygen Delivery Method Room Air Room Air 03/03/25 04:50 03/03/25 05:00 03/03/25 05:15 Temperature 98.5 F Temperature Source Oral Pulse Rate 91 Respiratory Rate 16 Respiratory Effort Normal Non-Labored Respiratory Depth Normal Respiratory Pattern Normal Blood Pressure 145/79 H Blood Pressure Mean 101 Blood Pressure Source Monitor Blood Pressure Position Semi-Fowlers Blood Pressure Location Right Forearm Pulse Ox 95 94 Oxygen Delivery Method Room Air Room Air Room Air 03/03/25 07:06 Temperature Temperature Source Pulse Rate Respiratory Rate Respiratory Effort Respiratory Depth Respiratory Pattern Blood Pressure 120/84 H Blood Pressure Mean 96 Blood Pressure Source Monitor Blood Pressure Position Supine Blood Pressure Location Left Forearm Pulse Ox Oxygen Delivery Method Weight Weight: 268 lb 15.423 oz Body Mass Index (BMI) 38.5 Physical Exam Narrative General -A&Ox3, NAD, appears stated age. Vital signs stable, afebrile. Respiratory -normal work of breathing, no intercostal retractions. CV -pulses regular, brisk capillary refill ?4 limbs. Abdomen-soft, nontender, nondistended. No guarding, rigidity, rebound tenderness. Musculoskeletal/neurologic -nontender left upper extremity, left lower extremity. Mild tenderness to the right knee without effusion. No short arc range of motion pain of the right knee. Sensation tact light touch throughout. Right upper extremity: Pain with short arc range of motion right shoulder. Able to actively flex his shoulder to approximately 30 degrees against gravity. [employer] strength is 4/5. Radial pulse 2+ prescriptively from the fingertips. No obvious cellulitis, rashes or lesions. No significant warmth to touch about the right shoulder. Subclavian port is in place in the right. Lab / Micro Data 03/03/25 04:09 03/03/25 04:09 Labs: Laboratory Results - last 24 hr 03/02/25 19:09: WBC 8.9, RBC 3.09 L, Hgb 8.7 L, Hct 28.1 L, MCV 90.9, MCH 28.2, MCHC 31.0 L, RDW Std Deviation 59.2 H, RDW Coeff of Lance 17.5 H, Plt Count 269, MPV 10.2, Immature Gran % (Auto) 0.700, Neut % (Auto) 75.2 H, Lymph % (Auto) 7.3 L, [place] % (Auto) 15.1 H, Eos % (Auto) 1.5, Baso % (Auto) 0.2, Absolute Neuts (auto) 6.7, Absolute Lymphs (auto) 0.65 L, Nucleated RBC % 0, PT 21.6 H, INR 1.8, APTT 44.7 H, Sodium 138, Potassium 3.3, Chloride 93 L, Carbon Dioxide 25.3, Anion Gap 20 H, BUN 23 H, Creatinine 6.42 H, Est GFR (MDRD) Non-Af 10 L, BUN/Creatinine Ratio 3.5 L, Glucose 128 H, Lactic Acid 3.6 H*, Calcium 8.7, Total Bilirubin 0.63, AST 33, ALT 16, Alkaline Phosphatase 179 H, Troponin T High Sens 211 H* D, Total Protein 9.4 H, Albumin 3.7, Globulin 5.7 H, Albumin/Globulin Ratio 0.6 L 03/02/25 23:23: Lactic Acid 2.9 H* 03/03/25 01:45: ESR 48 H, Phosphorus 5.6 H, Magnesium 2.1, Troponin T High Sens 198 H* D, C-React Prot Ext Range 230.00 H, Procalcitonin 6.54 H 03/03/25 04:09: WBC 9.9, RBC 2.78 L, Hgb 7.9 L, Hct 25.5 L, MCV 91.7, MCH 28.4, MCHC 31.0 L, RDW Std Deviation 59.4 H, RDW Coeff of Lance 17.6 H, Plt Count 253, MPV 10.0, Immature Gran % (Auto) 0.500, Neut % (Auto) 72.3 H, Lymph % (Auto) 8.1 L, [place]atham % (Auto) 17.2 H, Eos % (Auto) 1.5, Baso % (Auto) 0.4, Absolute Neuts (auto) 7.2, Absolute Lymphs (auto) 0.80 L, Nucleated RBC % 0, Differential Comment SCANNED, PT 21.6 H, INR 1.8, Sodium 137, Potassium 3.8, Chloride 95 L, Carbon Dioxide 22.5, Anion Gap 19 H, BUN 26 H, Creatinine 7.46 H*, Estim Creat Clear Calc 16.90 L, Est GFR (MDRD) Non-Af 9 L, BUN/Creatinine Ratio 3.5 L, Glucose 93, Hemoglobin A1c 5.3, Calcium 8.5, Total Bilirubin 0.47, AST 25, ALT 13, Alkaline Phosphatase 155 H, Troponin T Hi Sens 2 Hr 202 H*, Total Protein 8.2, Albumin 3.2 L, Globulin 5.0 H, Albumin/Globulin Ratio 0.7 L, Triglycerides 69, Cholesterol 143, LDL Cholesterol, Calc 76, VLDL Cholesterol 14, HDL Cholesterol 53, Cholesterol/HDL Ratio 2.69, TSH 5.160 H 03/03/25 05:13: Troponin T Hi Sens 4Hr 207 H* Micro: Microbiology 03/02/25 19:12 Mucosa - Nose SARS-CoV-2, Influenza & RSV (PCR) - Final Imaging Radiology Impression Chest X-Ray 03/02/25 19:35 IMPRESSION: Mild pulmonary vascular congestion. Right lower lobe opacity not excluded. Reading Location: [facility] Brain CT 03/02/25 20:29 IMPRESSION: No acute intracranial abnormality. Stroke called to the ordering provider will be done after reading the CTA. Reading Location: [id number] Head/Neck CTA 03/02/25 20:30 IMPRESSION: No acute arterial abnormalities of the head or neck. Atherosclerosis as above. Subcentimeter peripherally calcified thyroid nodules. Critical results were communicated to the ordering provider at 9:10 p.m.. Reading Location: [id number] Knee X-Ray 03/02/25 21:45 IMPRESSION: No acute osseous abnormalities. Mild fat stranding of the soft tissues which may represent edema. Reading Location: [id number] Shoulder X-Ray 03/02/25 21:45 IMPRESSION: 1.Limited exam. Widening of the glenohumeral interval and posterior relationship of the humeral head relative to the glenoid, concerning for posterior shoulder subluxation or dislocation. Joint effusion may contribute to this appearance. 2. Questionable interval decrease in glenoid bone stock since radiographs in 2020, which may be artifactual. Infection is not excluded. 3. Widening of the acromiohumeral interval is slightly increased in prominence compared to radiographs in 2020. Reading Location: [facility] Upper Extremity CT 03/02/25 22:29 IMPRESSION: 1. No evidence of a shoulder fracture or dislocation. There is markedly irregular appearance of the right glenoid, with widening of the glenoid fossa. 2. Right shoulder joint effusion. Consider aspiration if there is concern for infection. 3. Irregularity of the vertebral body endplates from C2 through C4, which is new since 2021 and could be degenerative or infectious. Consider MRI if there is concern for discitis-osteomyelitis. 4. Right axillary lymphadenopathy. 5. Solid pulmonary nodule in the right upper lobe measuring [address] chest in 6-12 months per Fleischner society guidelines. Yellow Alert: Impression above The critical information above was relayed directly by me by telephone to Mau De Souza on 03/02/2025 at 11:16 pm with readback verification. Reading Location: [id number] Assessment & Plan Assessment/Plan (1) Pain in right shoulder: PLAN: Patient seen and examined. CT scan reviewed of the right shoulder as well as x-rays of the right shoulder and right knee. Large effusion is noted the right shoulder. Right knee does not appear to be overly concerning for septic arthritis at this time. With regards to the right shoulder I did recommend a diagnostic arthrocentesis. Procedure note: Verbal informed consent obtained for right shoulder arthrocentesis Skin was prepped with chlorhexidine. 18-gauge needle was passed through the skin subcutaneous tissue just lateral to the coracoid process. Multiple attempts at aspiration yielded very little, approximately 1 cc of blood. Needle was withdrawn and injection site dressed with Band-Aid. Patient tolerated procedure well without apparent complication. I will send this minimal fluid for cell count and culture if able. Given the large effusion and essentially dry aspiration, I will order a image guided arthrocentesis by radiology. We will keep the patient n.p.o. pending results. Continue IV antibiotics per primary. I will follow. Please do not hesitate to call if any questions or concerns arise.
[2025-03-03] MEDS: 0.9% Saline Lock 10 ML Syringe IV ×2 (08:00→08:23)
--- NOTE | 2025-03-03 08:12 | RAD_ITS ---
PROCEDURE: RIGHT SHOULDER ASPIRATION UNDER FLUOROSCOPIC GUIDANCE 03/03/2025 REASON FOR EXAM: R SHOULDER EFFUSION, CONCERN FOR SEPTIC ARTHRITIS TECHNIQUE: FLUOROSCOPIC IMAGING WAS PROVIDED DURING RIGHT SHOULDER ASPIRATION. Fluoroscopy: 28 sec Dose: 7.2 mGy COMPARISON: RECENT RIGHT SHOULDER CT DATED 03/02/2025. FINDINGS: Informed consent was obtained from the patient. Patient was given opportunity to ask questions. Patient was positioned in a supine position with slight external rotation of the shoulder. The site of needle puncture was localized in the usual fashion under fluoroscopic guidance. Sterile preparation of the skin was performed in the usual fashion. Lidocaine 2% was utilized to accomplish local anesthesia. A 20 gauge, 3-1/2 inch spinal needle was inserted into the joint capsule. Cloudy yellowish fluid in the amount of 40 mL was aspirated into 2 separate 20 mL syringes. Specimens were sent to the laboratory for appropriate laboratory testing ordered by Dr. Shaffer. Needle was removed without incident. Patient tolerated the procedure well. RAD/Inj/Asp Oli Jt Should/Hip/Knee IMPRESSION: 1. Successful right shoulder aspiration under fluoroscopic guidance. 2. Aspirated specimens were sent to microbiology for appropriate testing order ed by Dr. Shaffer. 3. Final results are pending. 4. Thank you for this referral. Reading Location: [place] [id number]
[2025-03-03] MEDS: Vancomycin HCl 2,000 MG in 0.9% Normal Saline (500mL Bag) 500 ML 250 MG IV (10:23)
[2025-03-03] MEDS: oxyCODONE 5 MG Tablet PO ×2 (10:33→15:09)
[2025-03-03 11:12] LABS: CRYSTALS, BODY FLUID Other, see comment; Source- Body Fluid SYNOVIAL
[2025-03-03 11:14] LABS: Body Fluid QC Type(s) 0605 BF1
--- NOTE | 2025-03-03 11:56 | WOUNDNOTE ---
wound photo: back
--- NOTE | 2025-03-03 11:57 | WOUNDNOTE ---
wound photo: back
--- NOTE | 2025-03-03 11:58 | WOUNDNOTE ---
wound photo: left lower abdomen
--- NOTE | 2025-03-03 11:58 | WOUNDNOTE ---
wound photo: right chest
--- NOTE | 2025-03-03 11:59 | WOUNDNOTE ---
wound photo: left chest
[2025-03-03] MEDS: Cefepime HCl 2 GM in 0.9% Normal Saline (100mL MB+) 100 ML IV (12:48)
--- NOTE | 2025-03-03 13:16 | CON.PCM.NE_ITS ---
Assessment and Plan: Neuro Assessment/Plan REJI SPAIN is a 44 M with a past medical history of Morbid obesity, Valvular Heart Disease s/p MV mechanical valve on coumadin therapy, Chronic orthostasis on midodrine, ESRD on HD MWF following with Dr. Nora sauer, PAF, Chronic anemia/AOCD/Fe deficiency anemia, Hypothyroidism, being evaluated by Teleneurology for R arm weakness. On history, symptoms are improved after his surgery. On exam, there is weakness ont he R but not out of proportion to expected for recent shoulder effusion. Etiology is like weakness from referred pain from his joint effusion as imaging is benign. Patient requested evaluation be cut short but my clinical suspicion is low of a primary neurologic issue. No further workup at this time, if he does not improve as expected, please call Neurology back. Will sign off. I personally attended this patient and spent a total time of 45minutes evaluating this patient including clinical assessment, review of chart, medical history imaging, and determining appropriate treatment and workup. HPI Consult Data Date of Consult: 03/05/25 HPI Narrative HPI Narrative: The patient is a 44 y/o M w/ PMHx: Morbid obesity, Valvular Heart Disease s/p MV mechanical valve on coumadin therapy, Chronic orthostasis on midodrine, ESRD on HD MWF following with Dr. Nora sauer, PAF, Chronic anemia/AOCD/Fe deficiency anemia, Hypothyroidism, Chronic wounds who presents to the [facility] ED on 03/02/2025 secondary to persistent right shoulder pain that awoke him during his sleep the evening prior with general fatigue and malaise although he was able to tolerate a full dialysis treatment on day of presentation but given discomfort prompted ED evaluation. Workup in the ED included T97.5, heart rate 130, BP 87/68, respiratory rate 20, 96% on room air with most recent repeat vitals T98.3, heart 130, BP 90/57, respiratory rate 28, 99% on room air, CBC with WBC 8.9, he 1 8.7, MCV 90.9, platelet 269 with lymphopenia, no marked left shift noted, coags with PT 21.6, PTT 44.7, CMP with chloride 93, anion gap 20, BUN/creatinine 23/6.42, GFR 10, glucose 128, hepatic profile not marked appearing, lactic acid 3.6, troponin 211 noted to be elevated previously also, chest x-ray with mild pulmonary vascular congestion with inability to exclude a right lower lobe opacity but difficult given habitus, CT brain with no acute intracranial abnormality, CTA head and neck no acute arterial abnormality of the head or neck, atherosclerosis, subcentimeter peripherally calcified thyroid nodules, plain film of the right knee with no acute osseous abnormality with mild fat stranding of the soft tissue possibly edema, plain film of the right shoulder with widening of the glenohumeral interval and posterior relationship of the humeral head relative the glenoid concerning for posterior shoulder subluxation or dislocation, questionable interval decrease in glenoid bone stock possibly artifactual, widening of the acromiohumeral interval slightly increased in prominence compared to previous radiographs, CT right shoulder with no evidence of shoulder fracture dislocation, markedly irregular appearance of the right glenoid with widening of the glenoid fossa with right shoulder joint effusion, regular vertebral body endplates from C2-C4 new since 2021 possibly degenerative, right axillary lymphadenopathy, solid pulm nodule right upper lobe, EKG []. Stroke alert was initiated as patient had onset while in the ED of right arm weakness occurring at approximately 2033 but confirmed per nursing staff had been normal previously and upon their evaluation also subjectively noted he felt weak in the right leg however patient reporting also right knee pain and also noted right arm pain in the evening previously with no other neurological symptoms with NIH stroke assessment for for some effort against gravity for right upper and lower extremity only with neurology noting possible ischemic stroke versus pain related with recommendation for stroke workup to rule out stroke versus musculoskeletal etiology. Neurologic History Patient currently improved since his surgery. Getting HD today. Neurologic Exam -? General: Laying comfortably in bed; in no acute distress. -? HENT: Normal oropharynx and mucosa. Normal external appearance of ears and nose. Exophthalmos. -? Neck: Supple, no pain or tenderness -? CV:? No peripheral edema. -? Pulmonary:? Normal respiratory effort. -? Ext: No cyanosis, edema, or deformity -? Skin: No rash. Normal palpation of skin.? -? Musculoskeletal: full range of motion; no joint tenderness. Normal digits and nails by inspection. No clubbing. -? NEURO: -? Mental Status: The patient was alert and oriented to time, place, and person. Normal recent/remote memory, concentration, and general fund of knowledge. -? Language: speech is clear? Naming, repetition, fluency, and comprehension intact. -? Cranial Nerves: EOMI, visual page full, no facial asymmetry -? 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) Anemia in chronic kidney disease Dyspnea Secondary renal hyperparathyroidism Abdominal wall cellulitis Thrombosis of kidney dialysis arteriovenous graft COVID-19 virus detected (10/02/21) Dental caries Dialysis AV fistula malfunction Postoperative complete heart block (08/21/21) Hypotension of hemodialysis Pain of right lower extremity Medication side effects Chronic ulcer of back Sepsis Non-healing non-surgical wound Daily headache group home current use of 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 Mitral valve annular calcification Central retinal artery occlusion of left eye (10/09/20) History of non-ST elevation myocardial infarction (NSTEMI) (11/08/19) 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 History of bacterial endocarditis Mechanical complication of arteriovenous fistula surgically created Obstructive sleep apnea Non compliance w medication regimen Nonrheumatic mitral valve stenosis with insufficiency 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) Atrial flutter with rapid ventricular response (07/2020) Essential (primary) hypertension History of venous thromboembolism History of pulmonary embolus (PE) Bilateral carotid artery stenosis Paroxysmal atrial fibrillation (06/10/20) Unspecified symptoms and signs involving cognitive functions and awareness (04/05/20) 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) Expressive aphasia (04/05/20) ESRD on hemodialysis Dialysis patient Chronic kidney disease-mineral and bone disorder Chronic pelvic pain in male Pelvic mass Hematuria History of blood clots Hearing loss 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 due to renal insufficiency Morbidly obese Home Medications ?Medication ?Instructions ?Recorded ?Last Taken ?Type BP monitor #1 ea 07/17/21 Unknown Rx aspirin 81 mg tablet,delayed 81 mg PO DAILY heart heal th 10/29/21 02/24/25 History release (Adult Aspirin Regimen) sucroferric oxyhydroxide 500 mg 1,500 mg PO TIDCM phos phate binder 11/11/23 03/01/25 History chewable tablet (Velphoro) warfarin 5 mg tablet 5 mg PO DAILY blood thinner #90 05/07/24 03/01/25 Rx tabs cinacalcet 60 mg tablet 90 mg PO DAILY hormones 10/2203/02/25 History levothyroxine 25 mcg tablet 25 mcg PO DAILY disorder o f 07/30/24 03/02/25 History thyroid gland vitamin B complex-vitamin C-folic 1 tab PO DAILY vitam in 07/30/24 02/21/25 History acid 0.8 mg tablet (Juju-Tashi) midodrine 10 mg tablet 10 mg PO TID blood pressure #90 03/01/25 02/28/25 Rx tabs oxycodone 5 mg tablet 5 mg PO BID PRN pain 5 03/01/25 History Allergy/AdvReac Type Severity Reaction Status Date / Time trazodone Allergy Severe Jittery/Sha Verified 03/03/25 01:34 ky gabapentin Allergy Other Verified 03/03/25 01:34 Family History Other Adopted Surgical History Hx of mitral valve replacement with mechanical valve S/P PICC central line placement (06/15/24) History of angioplasty of peripheral vessel (08/28/21) History of tooth extraction, class IV edentulism (09/11/21) History of right and left heart catheterization (08/16/21) Mechanical complication of dialysis catheter History of herniorrhaphy Status post creation of arteriovenous fistula History of cardioversion (12/02/18) History of repair of congenital cleft palate History of left heart catheterization (09/17/18) history of cather replacement Social History household members: none Smoking Status: Never smoker alcohol intake: never substance use type: marijuana what type of physical activity do you participate in: none Vital Signs Vital Signs Vital Signs: 03/02/25 18:26 03/02/25 18:58 03/02/25 19:25 Temperature 97.5 F L Temperature Source Temporal Pulse Rate 130 H Respiratory Rate 20 H Respiratory Effort Normal Non-Labored Respiratory Depth Respiratory Pattern Normal Blood Pressure 87/68 L Blood Pressure Mean 74 Blood Pressure Source Blood Pressure Position Blood Pressure Location Pulse Ox 96 99 Oxygen Delivery Method Room Air Room Air Oxygen Flow Rate (L/min) 03/02/25 19:39 03/02/25 20:35 03/02/25 20:35 Temperature 98.9 F Temperature Source Oral Pulse Rate 130 H 110 H Respiratory Rate 28 H 30 H Respiratory Effort Respiratory Depth Respiratory Pattern Blood Pressure 87/57 L 90/57 L Blood Pressure Mean 67 68 Blood Pressure Source Blood Pressure Position Blood Pressure Location Pulse Ox 99 99 99 Oxygen Delivery Method Room Air Room Air Oxygen Flow Rate (L/min) 03/02/25 20:35 03/02/25 20:39 03/02/25 20:52 Temperature 98.3 F 98 F Temperature Source Oral Oral Pulse Rate 110 H 130 H 118 H Respiratory Rate 18 28 H 17 Respiratory Effort Respiratory Depth Respiratory Pattern Blood Pressure 90/57 L 90/57 L 94/48 L Blood Pressure Mean 68 68 63 Blood Pressure Source Blood Pressure Position Blood Pressure Location Pulse Ox 99 99 96 Oxygen Delivery Method Room Air Oxygen Flow Rate (L/min) 03/02/25 20:59 03/02/25 21:29 03/02/25 21:30 Temperature Temperature Source Pulse Rate 118 H 118 H 120 H Respiratory Rate 19 H 22 H 18 Respiratory Effort Respiratory Depth Respiratory Pattern Blood Pressure 94/48 L 114/59 L 114/59 L Blood Pressure Mean 63 77 77 Blood Pressure Source Blood Pressure Position Blood Pressure Location Pulse Ox 95 96 96 Oxygen Delivery Method Room Air Room Air Room Air Oxygen Flow Rate (L/min) 03/02/25 22:00 03/02/25 22:29 03/02/25 23:00 Temperature 98.3 F Temperature Source Pulse Rate 121 H 121 H 120 H Respiratory Rate 18 18 19 H Respiratory Effort Respiratory Depth Respiratory Pattern Blood Pressure 98/67 97/77 125/70 H Blood Pressure Mean 77 83 88 Blood Pressure Source Blood Pressure Position Blood Pressure Location Pulse Ox 99 99 98 Oxygen Delivery Method Oxygen Flow Rate (L/min) 03/03/25 00:00 03/03/25 01:00 03/03/25 01:00 Temperature 97.9 F Temperature Source Oral Pulse Rate 120 H 118 H Respiratory Rate 18 16 Respiratory Effort Normal Non-Labored Respiratory Depth Normal Respiratory Pattern Normal Blood Pressure 101/68 113/65 Blood Pressure Mean 79 81 Blood Pressure Source Monitor Blood Pressure Position Sitting Blood Pressure Location Left Arm Pulse Ox 99 100 Oxygen Delivery Method Room Air Room Air Oxygen Flow Rate (L/min) 03/03/25 04:50 03/03/25 05:00 03/03/25 05:15 Temperature 98.5 F Temperature Source Oral Pulse Rate 91 Respiratory Rate 16 Respiratory Effort Normal Non-Labored Respiratory Depth Normal Respiratory Pattern Normal Blood Pressure 145/79 H Blood Pressure Mean 101 Blood Pressure Source Monitor Blood Pressure Position Semi-Fowlers Blood Pressure Location Right Forearm Pulse Ox 95 94 Oxygen Delivery Method Room Air Room Air Room Air Oxygen Flow Rate (L/min) 03/03/25 07:06 03/03/25 08:32 03/03/25 09:15 Temperature 98.4 F Temperature Source Oral Pulse Rate 56 L Respiratory Rate 14 Respiratory Effort Respiratory Depth Respiratory Pattern Blood Pressure 120/84 H 92/74 Blood Pressure Mean 96 80 Blood Pressure Source Monitor Monitor Blood Pressure Position Supine Semi-Fowlers Blood Pressure Location Left Forearm Left Forearm Pulse Ox 96 99 Oxygen Delivery Method Room Air Nasal Cannula Oxygen Flow Rate (L/min) 2 Weight Weight: 122 kg Body Mass Index (BMI) 38.5 EEG Results Procedure Details EEG Procedure Details: REJI SPAIN is a 44 year old M with a past medical history of , who presents for evaluation of Electroencephalogram on DATE at TIME Lab / Micro Data 03/04/25 08:48 03/04/25 04:28 Labs: Laboratory Results - last 24 hr 03/02/25 19:09: WBC 8.9, RBC 3.09 L, Hgb 8.7 L, Hct 28.1 L, MCV 90.9, MCH 28.2, MCHC 31.0 L, RDW Std Deviation 59.2 H, RDW Coeff of Lance 17.5 H, Plt Count 269, MPV 10.2, Immature Gran % (Auto) 0.700, Neut % (Auto) 75.2 H, Lymph % (Auto) 7.3 L, [place] % (Auto) 15.1 H, Eos % (Auto) 1.5, Baso % (Auto) 0.2, Absolute Neuts (auto) 6.7, Absolute Lymphs (auto) 0.65 L, Nucleated RBC % 0, PT 21.6 H, INR 1.8, APTT 44.7 H, Sodium 138, Potassium 3.3, Chloride 93 L, Carbon Dioxide 25.3, Anion Gap 20 H, BUN 23 H, Creatinine 6.42 H, Est GFR (MDRD) Non-Af 10 L, B UN/Creatinine Ratio 3.5 L, Glucose 128 H, Lactic Acid 3.6 H*, Calcium 8.7, Total Bilirubin 0.63, AST 33, ALT 16, Alkaline Phosphatase 179 H, Troponin T High Sens 211 H* D, Total Protein 9.4 H, Albumin 3.7, Globulin 5.7 H, A lbumin/Globulin Ratio 0.6 L 03/02/25 23:23: Lactic Acid 2.9 H* 03/03/25 01:45: ESR 48 H, Phosphorus 5.6 H, Magnesium 2.1, Troponin T High Sens 198 H* D, C-React Prot Ext Range 230.00 H, Procalcitonin 6.54 H 03/03/25 04:09: WBC 9.9, RBC 2.78 L, Hgb 7.9 L, Hct 25.5 L, MCV 91.7, MCH 28.4, MCHC 31.0 L, RDW Std Deviation 59.4 H, RDW Coeff of Lance 17.6 H, Plt Count 253, MPV 10.0, Immature Gran % (Auto) 0.500, Neut % (Auto) 72.3 H, Lymph % (Auto) 8.1 L, [place] % (Auto) 17.2 H, Eos % (Auto) 1.5, Baso % (Auto) 0.4, Absolute Neuts (auto) 7.2, Absolute Lymphs (auto) 0.80 L, Nucleated RBC % 0, Differential Comment SCANNED, PT 21.6 H, INR 1.8, Sodium 137, Potassium 3.8, Chloride 95 L, Carbon Dioxide 22.5, Anion Gap 19 H, BUN 26 H, Creatinine 7.46 H*, Estim Creat Clear Calc 16.90 L, Est GFR (MDRD) Non-Af 9 L, BUN/Creatinine Ratio 3.5 L, Glucose 93, Hemoglobin A1c 5.3, Calcium 8.5, Total Bilirubin 0.47, AST 25, ALT 13, Alkaline Phosphatase 155 H, Troponin T Hi Sens 2 Hr 202 H*, Total Protein 8.2, Albumin 3.2 L, Globulin 5.0 H, Albumin/Globulin Ratio 0.7 L, Triglycerides 69, Cholesterol 143, LDL Cholesterol, Calc 76, VLDL Cholesterol 14, HDL Cholesterol 53, Cholesterol/HDL Ratio 2.69, TSH 5.160 H 03/03/25 05:13: Troponin T Hi Sens 4Hr 207 H* 03/03/25 08:10: Fluid Source Cancelled, Fluid Color Cancelled, Fluid Appearance Cancelled, Fluid WBC Cancelled, Fluid RBC Cancelled, Fluid Tot Cell Count Cancelled, Fld Polynuclear WBCs # Cancelled, Fld Polynuclear WBCs % Cancelled, Fluid Mononuclear WBCs Cancelled, Fld Mononuclear WBCs % Cancelled, Fluid Neutrophils Cancelled, Fluid Lymphocytes Cancelled, Fluid Monocytes Cancelled, Fluid Plasma Cells Cancelled, Fluid Macrophages Cancelled, Fld Mesothelial Cells Cancelled, Fluid Other Cells Cancelled, Fluid Crystals Other, see comment, Fluid Crystal Source SYNOVIAL, Fl Crystal Path Review , Fl Pathologist Comment Cancelled, Fluid Comment 2 Cancelled Micro: Microbiology 03/02/25 19:12 Mucosa - Nose SARS-CoV-2, Influenza & RSV (PCR) - Final Imaging Radiology Impression Chest X-Ray 03/02/25 19:35 IMPRESSION: Mild pulmonary vascular congestion. Right lower lobe opacity not excluded. Reading Location: [facility] Brain CT 03/02/25 20:29 IMPRESSION: No acute intracranial abnormality. Stroke called to the ordering provider will be done after reading the CTA. Reading Location: [id number] Head/Neck CTA 03/02/25 20:30 IMPRESSION: No acute arterial abnormalities of the head or neck. Atherosclerosis as above. Subcentimeter peripherally calcified thyroid nodules. Critical results were communicated to the ordering provider at 9:10 p.m.. Reading Location: [id number] Knee X-Ray 03/02/25 21:45 IMPRESSION: No acute osseous abnormalities. Mild fat stranding of the soft tissues which may represent edema. Reading Location: [id number] Shoulder X-Ray 03/02/25 21:45 IMPRESSION: 1.Limited exam. Widening of the glenohumeral interval and posterior relationship of the humeral head relative to the glenoid, concerning for posterior shoulder subluxation or dislocation. Joint effusion may contribute to this appearance. 2. Questionable interval decrease in glenoid bone stock since radiographs in 2020, which may be artifactual. Infection is not excluded. 3. Widening of the acromiohumeral interval is slightly increased in prominence compared to radiographs in 2020. Reading Location: [facility] Upper Extremity CT 03/02/25 22:29 IMPRESSION: 1. No evidence of a shoulder fracture or dislocation. There is markedly irregular appearance of the right glenoid, with widening of the glenoid fossa. 2. Right shoulder joint effusion. Consider aspiration if there is concern for infection. 3. Irregularity of the vertebral body endplates from C2 through C4, which is new since 2021 and could be degenerative or infectious. Consider MRI if there is concern for discitis-osteomyelitis. 4. Right axillary lymphadenopathy. 5. Solid pulmonary nodule in the right upper lobe measuring [address] chest in 6-12 months per Fleischner society guidelines. Yellow Alert: Impression above The critical information above was relayed directly by me by telephone to Mau De Souza on 03/02/2025 at 11:16 pm with readback verification. Reading Location: [facility] Brain MRI 03/03/25 01:00 IMPRESSION: 1. No evidence of intracranial pathology. 2. Other findings as noted. Reading Location: [facility] Active Medications Active Medications Active Medications: Current Medications Generic Name Dose Route Start Last Admin Trade Name Freq PRN Reason Stop Dose Admin Acetaminophen 650 mg 03/03/25 01:00 Acetaminophen 325 Mg Tablet PO Q4H PRN PRN Fever, pain 1-10 Al Hydroxide/Mg Hydroxide 30 ml 03/03/25 01:00 Mag Hydrox/Al Hydrox/Simeth 30 Ml Udc PO Q6H PRN PRN Gastric Burning Albuterol Sulfate 2.5 mg 03/03/25 01:00 Albuterol 2.5 Mg/3 Ml Vial.Neb. INHALATION Q2H PRN PRN Dyspnea, wheezing Aspirin 81 mg 03/03/25 08:00 03/03/25 10:11 Aspirin E.C. 81 Mg Tablet PO Not Given BREAKFAST MACY Cinacalcet 90 mg 03/03/25 08:00 03/03/25 11:25 Cinacalcet Hcl 30 Mg Tablet PO Not Given DAILYCM MACY Clarify Med Order 0 each 03/03/25 01:30 03/03/25 11:24 Clarify Order NOTE Not Given CLARIFY MACY Guaifenesin 20 ml 03/03/25 01:00 Guaifenesin 10 Ml Udc (200mg/10ml) PO Q4H PRN PRN COUGH Heparin Sodium (Porcine) 0 unit 03/03/25 06:50 Heparin Injection (Vial) 5,000 Unit/Ml Vial IV UD PRN dose adjustment Protocol Hydralazine HCl 5 mg 03/03/25 01:00 Hydralazine 20 Mg/Ml Vial IV 03/04/25 01:00 Q30M PRN maintain BP parameters with HR <60 Sodium Chloride 250 mls @ 15 mls/hr 03/03/25 01:31 IV .[id number] PRN Saline Flush Sodium Chloride 250 mls @ 15 mls/hr 03/03/25 01:31 IV .[id number] PRN Additional IVPB Infusion Cefepime HCl 2 gm/ Sodium 100 mls @ 200 mls/hr 03/03/25 10:00 03/03/25 12:48 Chloride IV 200 mls/hr DAILY MACY Administration Vancomycin IV-PHARMACY TO DOSE 500 mls @ 250 mls/hr 03/03/25 06:29 1 each/ Sodium Chloride IV X1 PRN Rx to Dose Protocol Heparin Sodium/Dextrose 25,000 units in 250 mls @ 16 mls/hr 03/03/25 06:35 03/03/25 10:10 CONT INF 1,600 units/hr .[id number] MACY 16 mls/hr Titration Protocol As Directed Labetalol HCl 10 - 20 mg 03/03/25 01:00 Labetalol 20 Mg/4 Ml Vial IV 03/04/25 01:00 Q10M PRN PRN maintain BP parameters with HR >/=60 Levothyroxine Sodium 25 mcg 03/03/25 06:00 03/03/25 07:09 Levothyroxine 25 Mcg Tablet PO 25 mcg DAILY@0600 MACY Administration Melatonin 3 mg 03/03/25 01:00 Melatonin 3 Mg Tablet PO QHS PRN PRN INSOMNIA Midodrine 10 mg 03/03/25 01:00 03/03/25 07:09 Midodrine Hcl 5 Mg Tablet PO 10 mg TID MACY Administration Non-Formulary Medication 1,500 mg 03/03/25 08:00 Sucroferric Oxyhydroxide [Velphoro] PO TIDCM [facility] Ondansetron HCl 4 mg 03/03/25 01:00 Ondansetron 4 Mg/2 Ml Vial IV Q8H PRN PRN NAUSEA/VOMITING Oxycodone HCl 5 mg 03/03/25 01:00 03/03/25 10:33 Oxycodone 5 Mg Tablet PO 5 mg Q4H PRN PRN Administration Pain Score 4-10 Prochlorperazine Edisylate 5 mg 03/03/25 01:00 Prochlorperazine 10 Mg/2 Ml Vial IV Q4H PRN PRN Breakthrough Nausea/Vomiting Senna/Docusate Sodium 2 tablet 03/03/25 01:00 Senna/Docusate Sodium 1 Tablet PO BID PRN PRN Constipation Sodium Chloride 10 - 40 ml 03/03/25 01:31 03/03/25 08:23 0.9% Saline Lock 10 Ml Syringe IV 10 ml UD PRN Administration SALINE FLUSH Vancomycin Protocol 1 lab 03/04/25 07:00 Vancomycin Trough/Random Due MC 03/04/25 09:00 DAILY [facility] Warfarin Sodium 5 mg 03/03/25 17:00 Warfarin 5 Mg Tablet PO 1700 [facility] NIHSS NIHSS Nursing Documentation NIHSS Nursing Documentation: NIHSS: Ischemic Stroke/TIA Start: 03/03/25 01:00 Text: For PCU Patients: NIH and Neuro Check every 4 Status: Active hours, PRN and with change in RN caregiver. Freq: [id number] Protocol: Activity Type Activity Date Activity User E-sign Co-sign Detail Recorded Client Recorded Date Recorded By Document 03/03/25 05:22 JS [id number] 03/03/25 05:31 JS 03/03/25 05:22 NIH Stroke Scale [NIHSS] A score of 0 is normal or asymptomatic . Total possible score is 42. Inpatient: RN or Physician to activate a stroke alert for onset of new stroke symptoms or with NIHSS increase >/= 3 points. Following change in neurological status, NIHSS will be performed per physician order or more frequently PRN. -1a. Level of Consciousness 0 - Alert; keenly responsive -1b. LOC Questions 0 - Answers BOTH questions correctly -1c. LOC Commands 0 - Performs BOTH tasks correctly -2. Best Gaze 0 - Normal -3. Visual 0 - No visual loss -4. Facial Palsy 0 - Normal symmetrical movements -5a. Left Arm 0 - No drift; arm holds 90 ( or 45) degrees for full 10 seconds -5b. Right Arm 2 - Some effort against gravity; -6a. Left Leg 0 - No drift; leg holds 30- degree position for full 5 seconds -6b. Right Leg 0 - No drift; leg holds 30- degree position for full 5 seconds -7. Limb Ataxia 0 - Absent -8. Sensory 0 - Normal; no sensory loss -9. Best Language 0 - No aphasia; normal -10. Dysarthria 0 - Normal -11. Extinction and Inattention 0 - No abnormality -Total 2 Query Text:A score of 0 is normal or asymptomatic. Total possible score is 42 . ED: Notify Physician for NIHSS increase by > / = 3 points. Inpatient: RN or Physician to activate a stroke alert for NIHSS increase of > / = 3 points. Coma Scale [Assess] -Eye Opening Spontaneous -Motor Obeys Commands -Verbal Oriented [Total] -Coma Scale Total 15
--- NOTE | 2025-03-03 15:06 | PN_ITS ---
Subjective Subjective Patient seen and examined. He was admitted with a complaint of right upper extremity pain and weakness. He still complains of the pain. Orthopedic surgery on board and they did try to aspirate the right shoulder today but got very little out. Plan is for him to have right shoulder arthroscopy and washout today. Stroke is also being ruled out. CT of the brain that showed no acute intracranial pathology and CTA head and neck showed no hemodynamically significant stenosis. He did have MRI of the brain today which also showed no evidence of stroke. He still complains of right shoulder pain. He is able to lift and abduct to the shoulder but only with extra fluid. Review of systems otherwise negative. Objective Data Objective Data Vital Signs: Vital Signs Temp Pulse Resp BP Pulse Ox O2 Del Method O2 Flow Rate 98.4 F 56 L 14 92/74 99 Nasal Cannula 2 03/03/25 09:15 03/03/25 09:15 03/03/25 09:15 03/03/25 09:15 03/03/25 09:15 03/03/25 10:00 03/03/25 10:00 Oxygen Flow Rate (L/min) 2 Oxygen Delivery Method Nasal Cannula Weight: 268 lb 15.423 oz Body Mass Index (BMI) 38.5 Intake & Output: Intake and Output for Last 24 Hours 03/01/25 03/02/25 03/03/25 23:59 23:59 23:59 Intake Total 1305 / 1305 1164.8 / 1164.8 Output Total 0 / 0 Balance 1305 / 1305 1164.8 / 1164.8 Lab / Micro Data 03/03/25 04:09 03/03/25 04:09 Labs: Laboratory Results - last 24 hr 03/02/25 19:09: WBC 8.9, RBC 3.09 L, Hgb 8.7 L, Hct 28.1 L, MCV 90.9, MCH 28.2, MCHC 31.0 L, RDW Std Deviation 59.2 H, RDW Coeff of Lance 17.5 H, Plt Count 269, MPV 10.2, Immature Gran % (Auto) 0.700, Neut % (Auto) 75.2 H, Lymph % (Auto) 7.3 L, [place] % (Auto) 15.1 H, Eos % (Auto) 1.5, Baso % (Auto) 0.2, Absolute Neuts (auto) 6.7, Absolute Lymphs (auto) 0.65 L, Nucleated RBC % 0, PT 21.6 H, INR 1.8, APTT 44.7 H, Sodium 138, Potassium 3.3, Chloride 93 L, Carbon Dioxide 25.3, Anion Gap 20 H, BUN 23 H, Creatinine 6.42 H, Est GFR (MDRD) Non-Af 10 L, B UN/Creatinine Ratio 3.5 L, Glucose 128 H, Lactic Acid 3.6 H*, Calcium 8.7, Total Bilirubin 0.63, AST 33, ALT 16, Alkaline Phosphatase 179 H, Troponin T High Sens 211 H* D, Total Protein 9.4 H, Albumin 3.7, Globulin 5.7 H, Albumin/Globulin Ratio 0.6 L 03/02/25 23:23: Lactic Acid 2.9 H* 03/03/25 01:45: ESR 48 H, Phosphorus 5.6 H, Magnesium 2.1, Troponin T High Sens 198 H* D, C-React Prot Ext Range 230.00 H, Procalcitonin 6.54 H 03/03/25 04:09: WBC 9.9, RBC 2.78 L, Hgb 7.9 L, Hct 25.5 L, MCV 91.7, MCH 28.4, MCHC 31.0 L, RDW Std Deviation 59.4 H, RDW Coeff of Lance 17.6 H, Plt Count 253, MPV 10.0, Immature Gran % (Auto) 0.500, Neut % (Auto) 72.3 H, Lymph % (Auto) 8.1 L, [place] % (Auto) 17.2 H, Eos % (Auto) 1.5, Baso % (Auto) 0.4, Absolute Neuts (auto) 7.2, Absolute Lymphs (auto) 0.80 L, Nucleated RBC % 0, Differential Comment SCANNED, PT 21.6 H, INR 1.8, Sodium 137, Potassium 3.8, Chloride 95 L, Carbon Dioxide 22.5, Anion Gap 19 H, BUN 26 H, Creatinine 7.46 H*, Estim Creat Clear Calc 16.90 L, Est GFR (MDRD) Non-Af 9 L, BUN/Creatinine Ratio 3.5 L, Glucose 93, Hemoglobin A1c 5.3, Calcium 8.5, Total Bilirubin 0.47, AST 25, ALT 13, Alkaline Phosphatase 155 H, Troponin T Hi Sens 2 Hr 202 H*, Total Protein 8.2, Albumin 3.2 L, Globulin 5.0 H, Albumin/Globulin Ratio 0.7 L, Triglycerides 69, Cholesterol 143, LDL Cholesterol, Calc 76, VLDL Cholesterol 14, HDL Cholesterol 53, Cholesterol/HDL Ratio 2.69, TSH 5.160 H 03/03/25 05:13: Troponin T Hi Sens 4Hr 207 H* 03/03/25 08:10: Fluid Source Cancelled, Fluid Color Cancelled, Fluid Appearance Cancelled, Fluid WBC Cancelled, Fluid RBC Cancelled, Fluid Tot Cell Count Cancelled, Fld Polynuclear WBCs # Cancelled, Fld Polynuclear WBCs % Cancelled, Fluid Mononuclear WBCs Cancelled, Fld Mononuclear WBCs % Cancelled, Fluid Neutrophils Cancelled, Fluid Lymphocytes Cancelled, Fluid Monocytes Cancelled, Fluid Plasma Cells Cancelled, Fluid Macrophages Cancelled, Fld Mesothelial Cells Cancelled, Fluid Other Cells Cancelled, Fluid Crystals Other, see comment, Fluid Crystal Source SYNOVIAL, Fl Crystal Path Review , Fl Pathologist Comment Cancelled, Fluid Comment 2 Cancelled 03/03/25 13:25: APTT 62.0 H Micro: Microbiology 03/03/25 08:10 Fluid - Synovial (joint) Gram Stain - Final 03/02/25 19:12 Mucosa - Nose SARS-CoV-2, Influenza & RSV (PCR) - Final Radiography Diagnostic Testing: Radiology Impression Chest X-Ray 03/02/25 19:35 IMPRESSION: Mild pulmonary vascular congestion. Right lower lobe opacity not excluded. Reading Location: [facility] Brain CT 03/02/25 20:29 IMPRESSION: No acute intracranial abnormality. Stroke called to the ordering provider will be done after reading the CTA. Reading Location: [id number] Head/Neck CTA 03/02/25 20:30 IMPRESSION: No acute arterial abnormalities of the head or neck. Atherosclerosis as above. Subcentimeter peripherally calcified thyroid nodules. Critical results were communicated to the ordering provider at 9:10 p.m.. Reading Location: [id number] Knee X-Ray 03/02/25 21:45 IMPRESSION: No acute osseous abnormalities. Mild fat stranding of the soft tissues which may represent edema. Reading Location: [id number] Shoulder X-Ray 03/02/25 21:45 IMPRESSION: 1.Limited exam. Widening of the glenohumeral interval and posterior relationship of the humeral head relative to the glenoid, concerning for posterior shoulder subluxation or dislocation. Joint effusion may contribute to this appearance. 2. Questionable interval decrease in glenoid bone stock since radiographs in 2020, which may be artifactual. Infection is not excluded. 3. Widening of the acromiohumeral interval is slightly increased in prominence compared to radiographs in 2020. Reading Location: [id number] Upper Extremity CT 03/02/25 22:29 IMPRESSION: 1. No evidence of a shoulder fracture or dislocation. There is markedly irregular appearance of the right glenoid, with widening of the glenoid fossa. 2. Right shoulder joint effusion. Consider aspiration if there is concern for infection. 3. Irregularity of the vertebral body endplates from C2 through C4, which is new since 2021 and could be degenerative or infectious. Consider MRI if there is concern for discitis-osteomyelitis. 4. Right axillary lymphadenopathy. 5. Solid pulmonary nodule in the right upper lobe measuring [address] chest in 6-12 months per Fleischner society guidelines. Yellow Alert: Impression above The critical information above was relayed directly by me by telephone to Mau De Souza on 03/02/2025 at 11:16 pm with readback verification. Reading Location: [id number] Brain MRI 03/03/25 01:00 IMPRESSION: 1. No evidence of intracranial pathology. 2. Other findings as noted. Reading Location: [id number] Physical Exam Const alert and oriented x3 Constitutional Narrative: in mild distress due to pain. HEENT normocephalic, head/scalp atraumatic and moist oral mucous membranes Eyes EOMs intact bilaterally Neck supple and no JVD Lymph Lymphatic: no lymphedema noted Resp Resp Narrative: mildy diminished breath sounds bibasally, no wheezes or crackles. On 2L of oxygen by nasal canula Cardio regular rate, regular rhythm, S1 normal heart sound, S2 normal heart sound and no murmurs GI normal to inspection, nondistended, normoactive bowel sounds and soft to palpation Extremity normal capillary refill, no clubbing, cyanosis or edema and no calf tenderness General Extremity: no tenderness to palpation of joints or extremities Neuro CN's II-XII intact bilaterally and no sensory deficits noted Neuro Narrative: right arm weakness, and pain with palpation. Able to partially abduct and elevate his RUE Motor Exam: general weakness Psych cooperative Appearance: appropriate Assessment & Plan Assessment/Plan (1) Right arm weakness: PLAN: Plan #Right upper extremity weakness and pain * Still having pain and weakness. MRI of the brain showed no evidence of a stroke as well as CT of the brain. CTA head and neck showed no hemodynamically significant pathology. * Imaging of the right shoulder showed no evidence of fracture, and showed markedly irregular appearance of the right glenoid with widening of the glenoid fossa with right shoulder joint effusion * orthopedics on board. Ortho tried doing a tap of hte right shoulder today but got very little out. * for fluid drainage by IR today * PT OT on board. Fall precautions. #Probable right lower lobe pneumonia * On ceftriaxone and azithromycin. Patient does not really have any productive cough or fever or chills. Keep him on this for now. Urine for strep and Legionella pending * #ESRD * on HD MWF. Nephrology on board. * Also on midodrine due to chronic orthostasis with dialysis. Has dialysis through a right AV fistula as she has had AV graft dysfunction requiring embolectomy. * #Elevated troponins initial troponin was 2 2 today. Troponin was elevated in January 2025 at 163. * #Mitral valve stenosis: * S/p mitral valve replacement. Follow up with cardiology on outpatient basis. #Chronic wounds: has chronic wounds on his upper back. Wound care on board. #Paroxysmal afib: * on coumadin. Goal INR is 2.5-3.5. * INR is only 1.8 today. To adjust Coumadin dose as needed. # Hypothyroidism: * On Synthroid. TSH is 5.16. * Was also previously elevated on 03/01/2025 at 5.3 and 01/17/2024 at 4.92. * Counseled on compliance with Synthroid. #Class II obesity: * BMI is 30.6. * Complicates acute care, expected recovery and prognosis. DVT prophylaxis: Already on Coumadin. INR is subtherapeutic at 1.8 Charges/Coding Visit Charges Inpatient E&M: 67856 Subs Hosp L3
--- NOTE | 2025-03-03 15:08 | CHAPLAIN ---
Type of Pastoral Visit _x__ Initial Visit ___ Follow-up Visit ___ On-call Visit ___ General Patient Visit ___ Spiritual Assessment ___ Family Conference ___ Bereavement ___ Rapid Response ___ Code Blue ___ Other (describe below) Pastoral Care Referral From _x__ Patient ___ Family ___ Nurse ___ Physician ___ Adding Machine Mechanic ___ Towboat Engineer ___ Other (describe below) Sacrament/Intervention _x__ Active listening ___ Anointing ___ Oriental Orthodox ___ Bereavement ___ Communion _x__ Layla exploration ___ ___ Life review _x__ Prayer ___ Reconciliation ___ Sacrament of Sick _x__ Supportive presence ___ Wedding ___ Other (describe below) Pastoral Comments patient is sitting in the chair; pt acknowledges that life isn't great right now; pt has some discouragement about his ongoing health issues; pt states that tests have been done and more will be given; 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
[2025-03-03] MEDS: Lidocaine 2% (5ml sdv) 5 ML VIAL.MPF INFILT (15:15)
[2025-03-03] MEDS: Lidocaine 2% (20 ml mdv) 20 ML Vial INFILT (15:30)
--- NOTE | 2025-03-03 16:28 | NURSING ---
RACHEL Castellon spoke with patient prior to joint aspiration. Pt was apprehensive about doing aspiration. Pt reports he was told by someone today that he would be given light sedation for procedure. RACHEL Castellon explained to pt that for at least the last 6 years at [facility] IR sedation has not been a part of the practice for joint aspirations. RACHEL Castellon spoke with patient's RN regarding the patient's understanding of what was to occur, pt's RN did not inform patient he would be getting any sedation. Pt was, however, able to get Oxyir 5mg which he was due for. Pt in agreement to undergo exam with RACHEL Castellon at the bedside to help patient through the exam. Dr. Burger explained the procedure to the patient and consent was obtained. Pt was helped through the procedure and tolerated it. 40mL serosanguineous fluid was obtained from the right shoulder joint space. The fluid was sent down for analysis by lab. Bandaid was applied at site. Pt's RN made aware of the above. Pt thankful to staff post-procedure.
[2025-03-03] MEDS: Morphine 2 MG/ML Syringe 1 MG IV (18:39)
--- NOTE | 2025-03-03 18:40 | PCM.CONS.R ---
Assessment & Plan Assessment/Plan (1) ESRD (end stage renal disease): PLAN: MWF schedule. HD arranged for tomorrow takes velphoro as phos binder. ok for renvela HPI Consult Data Date of Consult: 03/03/25 HPI Narrative Reason for Consultation: ESRD HPI Narrative: REJI SPAIN, is a 44 M who presents to hospital with right shoulder pain. renal consulted for ESRD. on HD MWF schedule. last HD yesterday. no other complaints other than right arm pain. 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) Anemia in chronic kidney disease Dyspnea Secondary renal hyperparathyroidism Abdominal wall cellulitis Thrombosis of kidney dialysis arteriovenous graft COVID-19 virus detected (10/02/21) Dental caries Dialysis AV fistula malfunction Postoperative complete heart block (08/21/21) Hypotension of hemodialysis Pain of right lower extremity Medication side effects Chronic ulcer of back Sepsis Non-healing non-surgical wound Daily headache nursing home current use of 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 Mitral valve annular calcification Central retinal artery occlusion of left eye (10/09/20) History of non-ST elevation myocardial infarction (NSTEMI) (11/08/19) 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 History of bacterial endocarditis Mechanical complication of arteriovenous fistula surgically created Obstructive sleep apnea Non compliance w medication regimen Nonrheumatic mitral valve stenosis with insufficiency 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) Atrial flutter with rapid ventricular response (07/2020) Essential (primary) hypertension History of venous thromboembolism History of pulmonary embolus (PE) Bilateral carotid artery stenosis Paroxysmal atrial fibrillation (06/10/20) Unspecified symptoms and signs involving cognitive functions and awareness (04/05/20) 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) Expressive aphasia (04/05/20) ESRD on hemodialysis Dialysis patient Chronic kidney disease-mineral and bone disorder Chronic pelvic pain in male Pelvic mass Hematuria History of blood clots Hearing loss 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 due to renal insufficiency Morbidly obese Home Medications ?Medication ?Instructions ?Recorded ?Last Taken ?Type BP monitor #1 ea 07/17/21 Unknown Rx aspirin 81 mg tablet,delayed 81 mg PO DAILY heart health 10/29/21 02/24/25 History release (Adult Aspirin Regimen) sucroferric oxyhydroxide 500 mg 1,500 mg PO TIDCM phosphate binder 11/11/23 03/01/25 History chewable tablet (Velphoro) warfarin 5 mg tablet 5 mg PO DAILY blood thinner #90 05/07/24 03/01/25 Rx tabs cinacalcet 60 mg tablet 90 mg PO DAILY hormones 07/30/24 03/02/25 History levothyroxine 25 mcg tablet 25 mcg PO DAILY disorder of 07/30/24 03/02/25 History thyroid gland vitamin B complex-vitamin C-folic 1 tab PO DAILY vitamin 07/30/24 02/21/25 History acid 0.8 mg tablet (Juju-Tashi) midodrine 10 mg tablet 10 mg PO TID blood pressure #90 03/01/25 02/28/25 Rx tabs oxycodone 5 mg tablet 5 mg PO BID PRN pain 03/01/25 03/01/25 History Allergy/AdvReac Type Severity Reaction Status Date / Time trazodone Allergy Severe Jittery/Sha Verified 03/03/25 01:34 ky gabapentin Allergy Other Verified 03/03/25 01:34 Family History Other Adopted Surgical History Hx of mitral valve replacement with mechanical valve S/P PICC central line placement (06/15/24) History of angioplasty of peripheral vessel (08/28/21) History of tooth extraction, class IV edentulism (09/11/21) History of right and left heart catheterization (08/16/21) Mechanical complication of dialysis catheter History of herniorrhaphy Status post creation of arteriovenous fistula History of cardioversion (12/02/18) History of repair of congenital cleft palate History of left heart catheterization (09/17/18) history of cather replacement Social History household members: none Smoking Status: Never smoker alcohol intake: never substance use type: marijuana what type of physical activity do you participate in: none ROS ROS Narrative negative except above Physical Exam Narrative Alert awake oriented x 3 no obvious distress no pallor no icterus no JVD s1s2 no murmurs lungs clear abdomen soft no organomegaly no edema no cyanosis Lab / Micro Data 03/03/25 04:09 03/03/25 04:09 Labs: Laboratory Results - last 24 hr 03/02/25 19:09: WBC 8.9, RBC 3.09 L, Hgb 8.7 L, Hct 28.1 L, MCV 90.9, MCH 28.2, MCHC 31.0 L, RDW Std Deviation 59.2 H, RDW Coeff of Lance 17.5 H, Plt Count 269, MPV 10.2, Immature Gran % (Auto) 0.700, Neut % (Auto) 75.2 H, Lymph % (Auto) 7.3 L, [place] % (Auto) 15.1 H, Eos % (Auto) 1.5, Baso % (Auto) 0.2, Absolute Neuts (auto) 6.7, Absolute Lymphs (auto) 0.65 L, Nucleated RBC % 0, PT 21.6 H, INR 1.8, APTT 44.7 H, Sodium 138, Potassium 3.3, Chloride 93 L, Carbon Dioxide 25.3, Anion Gap 20 H, BUN 23 H, Creatinine 6.42 H, Est GFR (MDRD) Non-Af 10 L, BUN/Creatinine Ratio 3.5 L, Glucose 128 H, Lactic Acid 3.6 H*, Calcium 8.7, Total Bilirubin 0.63, AST 33, ALT 16, Alkaline Phosphatase 179 H, Troponin T High Sens 211 H* D, Total Protein 9.4 H, Albumin 3.7, Globulin 5.7 H, Albumin/Globulin Ratio 0.6 L 03/02/25 23:23: Lactic Acid 2.9 H* 03/03/25 01:45: ESR 48 H, Phosphorus 5.6 H, Magnesium 2.1, Troponin T High Sens 198 H* D, C-React Prot Ext Range 230.00 H, Procalcitonin 6.54 H 03/03/25 04:09: WBC 9.9, RBC 2.78 L, Hgb 7.9 L, Hct 25.5 L, MCV 91.7, MCH 28.4, MCHC 31.0 L, RDW Std Deviation 59.4 H, RDW Coeff of Lance 17.6 H, Plt Count 253, MPV 10.0, Immature Gran % (Auto) 0.500, Neut % (Auto) 72.3 H, Lymph % (Auto) 8.1 L, [place] % (Auto) 17.2 H, Eos % (Auto) 1.5, Baso % (Auto) 0.4, Absolute Neuts (auto) 7.2, Absolute Lymphs (auto) 0.80 L, Nucleated RBC % 0, Differential Comment SCANNED, PT 21.6 H, INR 1.8, Sodium 137, Potassium 3.8, Chloride 95 L, Carbon Dioxide 22.5, Anion Gap 19 H, BUN 26 H, Creatinine 7.46 H*, Estim Creat Clear Calc 16.90 L, Est GFR (MDRD) Non-Af 9 L, BUN/Creatinine Ratio 3.5 L, Glucose 93, Hemoglobin A1c 5.3, Calcium 8.5, Total Bilirubin 0.47, AST 25, ALT 13, Alkaline Phosphatase 155 H, Troponin T Hi Sens 2 Hr 202 H*, Total Protein 8.2, Albumin 3.2 L, Globulin 5.0 H, Albumin/Globulin Ratio 0.7 L, Triglycerides 69, Cholesterol 143, LDL Cholesterol, Calc 76, VLDL Cholesterol 14, HDL Cholesterol 53, Cholesterol/HDL Ratio 2.69, TSH 5.160 H 03/03/25 05:13: Troponin T Hi Sens 4Hr 207 H* 03/03/25 08:10: Fluid Source Cancelled, Fluid Color Cancelled, Fluid Appearance Cancelled, Fluid WBC Cancelled, Fluid RBC Cancelled, Fluid Tot Cell Count Cancelled, Fld Polynuclear WBCs # Cancelled, Fld Polynuclear WBCs % Cancelled, Fluid Mononuclear WBCs Cancelled, Fld Mononuclear WBCs % Cancelled, Fluid Neutrophils Cancelled, Fluid Lymphocytes Cancelled, Fluid Monocytes Cancelled, Fluid Plasma Cells Cancelled, Fluid Macrophages Cancelled, Fld Mesothelial Cells Cancelled, Fluid Other Cells Cancelled, Fluid Crystals Other, see comment, Fluid Crystal Source SYNOVIAL, Fl Crystal Path Review , Fl Pathologist Comment Cancelled, Fluid Comment 2 Cancelled 03/03/25 13:25: APTT 62.0 H Micro: Microbiology 03/03/25 08:10 Fluid - Synovial (joint) Gram Stain - Final 03/02/25 19:12 Mucosa - Nose SARS-CoV-2, Influenza & RSV (PCR) - Final Imaging Radiology Impression Chest X-Ray 03/02/25 19:35 IMPRESSION: Mild pulmonary vascular congestion. Right lower lobe opacity not excluded. Reading Location: [id number] Brain CT 03/02/25 20:29 IMPRESSION: No acute intracranial abnormality. Stroke called to the ordering provider will be done after reading the CTA. Reading Location: [id number] Head/Neck CTA 03/02/25 20:30 IMPRESSION: No acute arterial abnormalities of the head or neck. Atherosclerosis as above. Subcentimeter peripherally calcified thyroid nodules. Critical results were communicated to the ordering provider at 9:10 p.m.. Reading Location: [id number] Knee X-Ray 03/02/25 21:45 IMPRESSION: No acute osseous abnormalities. Mild fat stranding of the soft tissues which may represent edema. Reading Location: [id number] Shoulder X-Ray 03/02/25 21:45 IMPRESSION: 1.Limited exam. Widening of the glenohumeral interval and posterior relationship of the humeral head relative to the glenoid, concerning for posterior shoulder subluxation or dislocation. Joint effusion may contribute to this appearance. 2. Questionable interval decrease in glenoid bone stock since radiographs in 2020, which may be artifactual. Infection is not excluded. 3. Widening of the acromiohumeral interval is slightly increased in prominence compared to radiographs in 2020. Reading Location: [id number] Upper Extremity CT 03/02/25 22:29 IMPRESSION: 1. No evidence of a shoulder fracture or dislocation. There is markedly irregular appearance of the right glenoid, with widening of the glenoid fossa. 2. Right shoulder joint effusion. Consider aspiration if there is concern for infection. 3. Irregularity of the vertebral body endplates from C2 through C4, which is new since 2021 and could be degenerative or infectious. Consider MRI if there is concern for discitis-osteomyelitis. 4. Right axillary lymphadenopathy. 5. Solid pulmonary nodule in the right upper lobe measuring [address] chest in 6-12 months per Fleischner society guidelines. Yellow Alert: Impression above The critical information above was relayed directly by me by telephone to Mau De Souza on 03/02/2025 at 11:16 pm with readback verification. Reading Location: [id number] Brain MRI 03/03/25 01:00 IMPRESSION: 1. No evidence of intracranial pathology. 2. Other findings as noted. Reading Location: [id number] Joint Aspiration/Injection 03/03/25 08:12 IMPRESSION: 1. Successful right shoulder aspiration under fluoroscopic guidance. 2. Aspirated specimens were sent to microbiology for appropriate testing ordered by Dr. Shaffer. 3. Final results are pending. 4. Thank you for this referral. Reading Location: [place] [id number]
[2025-03-03 19:03] LABS: Pathologist Comment May follow
[2025-03-03 19:12] LABS: Synovial Fld Mononuclear WBC # 2.253 10^3/ul; Synovial Fld Mononuclear WBC % 7.2 %; Synovial Fld Polynuclear WBC # 28.931 10^3/uL; Synovial Fld Polynuclear WBC % 92.8 %
[2025-03-03 21:26] LABS: RBC /Synovial Fluid 0.011 10^6/uL (0)
[2025-03-03] MEDS: MELATONIN 3 MG TABLET PO (23:31)
[2025-03-03 23:35] LABS: Lymph 19 %; Monocyte /Synovial Fluid 12 %; Neutrophil 69 % (0-25)
[2025-03-03 23:38] LABS: AUTO B FLUID DILUENT BKGD CT WBC <0.1 RBC <0.01 (W<.1,R<.01); Source / Synovial Fluid RIGHT SHOULDER
[2025-03-03 23:39] LABS: Appearance /Synovial Fluid Turbid (CLEAR); Body Fluid QC Type(s) BF2Q; Color / Synovial Fluid Yellow (Pale Yellow)
[2025-03-04] VITALS (22 sets, daily range): BP systolic 92–242; BP diastolic 41–81; PULSE 80–115; RESP 13–22; TEMP 36.6–36.9; O2SAT 93–104; BMI 38.5; BMI 37.6
[2025-03-04 05:30] LABS: International Normalized Ratio 1.8; Prothrombin Time (Protime)PT. 21.3 SECONDS (11.7-14.9)
[2025-03-04 06:00] LABS: Anion Gap 18 (5-15); BUN 36 mg/dL (4-19); BUN/Creat Ratio 3.8 RATIO (10-20); Calcium,Total 9.1 mg/dL (7.6-11.0); Carbon Dioxide 21.4 mmol/L (21.0-32.0); Chloride 94 mmol/L (98-108); Creatinine, Serum 9.33 mg/dL (0.70-1.20); EST Glomerular Filtration Rate 7 (>60); Estimated Creatinine Clearance 13.51 ml/min (50-250); Glucose 88 mg/dL (70-99); Potassium 4.5 mmol/L (3.3-5.1); Sodium Level 134 mmol/L (133-145)
--- NOTE | 2025-03-04 07:40 | PN.ORTHO_ITS ---
Subjective Subjective Patient seen and examined. Underwent fluoroscopic guided arthrocentesis of the right shoulder yesterday yielded 40 cc of fluid. He feels the shoulder is maybe a slightly better from a arthrocentesis. He denies any fevers or chills, nausea or vomiting, chest pain or shortness of breath. Objective Data Objective Data Vital Signs: Vital Signs Temp Pulse Resp BP Pulse Ox O2 Del Method O2 Flow Rate 98.0 F 104 H 18 127/95 H 99 Nasal Cannula 2 03/03/25 16:04 03/03/25 18:39 03/03/25 16:04 03/03/25 18:39 03/03/25 16:04 03/03/25 16:04 03/03/25 16:04 Oxygen Flow Rate (L/min) 2 Oxygen Delivery Method Nasal Cannula Weight: 268 lb 15.423 oz Body Mass Index (BMI) 38.5 Intake & Output: Intake and Output for Last 24 Hours 03/02/25 03/03/25 03/04/25 23:59 23:59 23:59 Intake Total 1305 / 1305 1610.00 / 1830.00 220 / 220 Output Total 0 / 0 0 / 0 Balance 1305 / 1305 1610.00 / 1830.00 220 / 220 Lab / Micro Data 03/03/25 04:09 03/04/25 04:28 Labs: Laboratory Results - last 24 hr 03/03/25 08:10: Fluid Source Cancelled, Fluid Color Cancelled, Fluid Appearance Cancelled, Fluid WBC Cancelled, Fluid RBC Cancelled, Fluid Tot Cell Count Cancelled, Fld Polynuclear WBCs # Cancelled, Fld Polynuclear WBCs % Cancelled, Fluid Mononuclear WBCs Cancelled, Fld Mononuclear WBCs % Cancelled, Fluid Neutrophils Cancelled, Fluid Lymphocytes Cancelled, Fluid Monocytes Cancelled, Fluid Plasma Cells Cancelled, Fluid Macrophages Cancelled, Fld Mesothelial Cells Cancelled, Fluid Other Cells Cancelled, Fluid Crystals Other, see comment, Fluid Crystal Source SYNOVIAL, Fl Crystal Path Review , Fl Pathologist Comment Cancelled, Fluid Comment 2 Cancelled 03/03/25 13:25: APTT 62.0 H 03/03/25 15:39: Fluid Source Cancelled, Fluid Color Cancelled, Fluid Appearance Cancelled, Fluid WBC Cancelled, Fluid RBC Cancelled, Fluid Tot Cell Count Cancelled, Fld Polynuclear WBCs # Cancelled, Fld Polynuclear WBCs % Cancelled, Fluid Mononuclear WBCs Cancelled, Fld Mononuclear WBCs % Cancelled, Fluid Neutrophils Cancelled, Fluid Lymphocytes Cancelled, Fluid Monocytes Cancelled, Fluid Plasma Cells Cancelled, Fluid Macrophages Cancelled, Fld Mesothelial Cells Cancelled, Fluid Other Cells Cancelled, Fl Pathologist Comment Cancelled, Fluid Comment 2 Cancelled, Synovial Source RIGHT SHOULDER, Synovial Color Yellow, Synovial Appearance Turbid, Synovial WBC 75.3300 H, Synovial RBC 0.011 H, S ynovial Tot Cell Ct 76.4100 H, Synov Polynuclear WBCs 28.931, Synov Mononuclear WBCs 2.253, Synovial Neutrophils 69 H, Synovial Lymphocytes 19, Synovial Monocytes 12, Synovial Polynuclear % 92.8, Synovial Mononuclear % 7.2, Synovial Path Comment May follow 03/04/25 04:28: WBC Cancelled, Corrected WBC Cancelled, RBC Cancelled, Hgb Cancelled, Hct Cancelled, MCV Cancelled, MCH Cancelled, MCHC Cancelled, RDW Std Deviation Cancelled, RDW Coeff of Lance Cancelled, Plt Count Cancelled, MPV Cancelled, Immature Gran % (Auto) Cancelled, Neut % (Auto) Cancelled, Lymph % (Auto) Cancelled, [place] % (Auto) Cancelled, Eos % (Auto) Cancelled, Baso % (Auto) Cancelled, Absolute Neuts (auto) Cancelled, Absolute Lymphs (auto) Cancelled, Total Counted Cancelled, Neutrophils % (Manual) Cancelled, Band Neutrophils % Cancelled, Lymphocytes % (Manual) Cancelled, Monocytes % (Manual) Cancelled, Eosinophils % (Manual) Cancelled, Basophils % (Manual) Cancelled, Metamyelocytes % Cancelled, Myelocytes % Cancelled, Promyelocytes % Cancelled, Blast Cells % Cancelled, Plasma Cell % (Manual) Cancelled, Other Cells % Cancelled, Nucleated RBC % Cancelled, Nucleated RBCs/100 WBC Cancelled, Differential Comment Cancelled, Diff Path Review Cancelled, Hypersegmented Neuts Cancelled, Atypical Lymphocytes Cancelled, Reactive Lymphocytes Cancelled, Smudge Cells Cancelled, Toxic Granulation Cancelled, Toxic Vacuolation Cancelled, Dohle Bodies Cancelled, Madonna Rods Cancelled, Platelet Estimate Cancelled, Plt Morphology Comment Cancelled, RBC Morphology Cancelled 03/04/25 04:28: RBC Morphology Cancelled, Polychromasia Cancelled, Hypochromasia Cancelled, Basophilic Stippling Cancelled, Anisocytosis Cancelled, Microcytosis Cancelled, Macrocytosis Cancelled, Spherocytes Cancelled, Sickle Cells Cancelled, Target Cells Cancelled, Tear Drop Cells Cancelled, Ovalocytes Cancelled, Stomatocytes Cancelled, [place] Bodies Cancelled, Cj Cells Cancelled, Bite Cells Cancelled, Crenated Cell Cancelled, Acanthocytes (Spur) Cancelled, Rouleaux Cancelled, Schistocytes Cancelled, PT 21.3 H, INR 1.8, Sodium 134, Potassium 4.5, Chloride 94 L, Carbon Dioxide 21.4, Anion Gap 18 H, B UN 36 H, Creatinine 9.33 H*, Estim Creat Clear Calc 13.51 L, Est GFR (MDRD) Non- Af 7 L, BUN/Creatinine Ratio 3.8 L, Glucose 88, Calcium 9.1 Micro: Microbiology 03/03/25 08:10 Fluid - Synovial (joint) Gram Stain - Final 03/02/25 19:12 Mucosa - Nose SARS-CoV-2, Influenza & RSV (PCR) - Final Radiography Diagnostic Testing: Radiology Impression Brain MRI 03/03/25 01:00 IMPRESSION: 1. No evidence of intracranial pathology. 2. Other findings as noted. Reading Location: [id number] Joint Aspiration/Injection 03/03/25 08:12 IMPRESSION: 1. Successful right shoulder aspiration under fluoroscopic guidance. 2. Aspirated specimens were sent to microbiology for appropriate testing ordered by Dr. Shaffer. 3. Final results are pending. 4. Thank you for this referral. Reading Location: [place] [address] Physical Exam Narrative General -A&Ox3, NAD, appears stated age. Vital signs stable, afebrile. Respiratory -normal work of breathing, no intercostal retractions. CV -pulses regular, brisk capillary refill ?4 limbs. Abdomen-soft, nontender, nondistended. No guarding, rigidity, rebound tenderness. Musculoskeletal/neurologic -nontender left upper extremity, left lower extremity. No tenderness to the right knee without effusion. No short arc range of motion pain of the right knee. Sensation tact light touch throughout. Right upper extremity: Tolerates internal/external rotation well without significant pain. Able to actively flex his shoulder to approximately 50 degrees against gravity. [employer] strength is 4/5. Radial pulse 2+ prescriptively from the fingertips. No obvious cellulitis, rashes or lesions. No significant warmth to touch about the right shoulder. Subclavian port is in place in the right. Assessment & Plan Assessment/Plan (1) Septic arthritis of shoulder, right: PLAN: Patient seen and examined. Arthrocentesis cell count reviewed. Concerning for infection. He appears to be somewhat improved. He is hemodynamically stable. We discussed typical management of septic arthritis includes surgical irrigation debridement. His surgical risk is immense given his comorbidities. Medical treatment for septic arthritis has been validated as a reasonable treatment for select patients with arthrocentesis and IV antibiotics. He appears to be improving with medical treatment at this time, which I feel is most appropriate in this case currently. I will follow and reevaluate possible need for surgery.
[2025-03-04] MEDS: oxyCODONE 5 MG Tablet PO (07:57)
[2025-03-04] MEDS: PureFlow B 2K Dialysis Soln 1 BAG 6 BAG PF (08:37)
[2025-03-04] MEDS: 0.9% Normal Saline 1,000 ML IV.SOLN. 1000 ML OPERA.SITE (08:37)
[2025-03-04] MEDS: 0.9% Saline Lock 10 ML Syringe IV ×5 (08:37→23:36)
[2025-03-04] MEDS: Vancomycin Trough/Random Due 1 LAB MC (08:52)
[2025-03-04 09:02] LABS: Absolute Lymphocyte Count 0.69 X10^3/uL (0.83-4.51); Absolute Neutrophil Count 4.5 X10^3/uL (2.0-7.7); Basophil# 0.04 X10^3/uL; Basophil% 0.6 % (0-1); Eosinophil# 0.19 X10^3/uL; Eosinophils% 2.9 % (0-5); Hematocrit 25.2 % (40-54); Hemoglobin 7.8 g/dL (13.0-16.5); Lymphocyte # 0.69 X10^3/ul (0.83-4.51); Lymphocyte % 10.5 % (19-41); Mean Corpuscular Hgb 28.2 pg (27.0-32.0); Mean Platelet Vol. 10.7 fl (6.2-12.0); Monocyte# 1.11 X10^3/uL; Monocyte% 16.9 % (0-10); NRBC Flagged by Analyzer 0 % (0-5); Neutrophil # 4.51 X10^3/uL (2.7-7.7); Neutrophil % 68.8 % (47-70); Platelet Count 253 K/mm3 (150-450); RBC Distribution Width CV 17.6 % (11.6-14.6); RBC Distribution Width SD 59.2 fl (35.1-43.9); Red Blood Count 2.77 M/mm3 (4.6-6.2); White Blood Count 6.6 K/mm3 (4.4-11.0)
[2025-03-04 09:29] LABS: Vancomycin, Random Level 19.6 ug/mL (0.0-15.0)
--- NOTE | 2025-03-04 09:30 | WOUNDNOTE ---
Pt currently on dialysis. pt very tearful this am. states I don't want to be here on my birthday. Pt's birthday is tomorrow. no plans for discharge at this time. wounds with minimal drainage yesterday so orders changed to every other day since patient gets very anxious about dressing changes. pt tolerated them well yesterday. just gets very emotional. will monitor.
--- NOTE | 2025-03-04 09:55 | PCM.RX.CS ---
Consult Antibiotic Management Pharmacy has been consulted to manage selected antibiotic: Vancomycin Type of Intervention Type of Consult: Follow-up Labs Labs: Sodium 134 mmol/L (133-145) 03/04/25 04:28 Potassium 4.5 mmol/L (3.3-5.1) 03/04/25 04:28 Chloride 94 mmol/L (98-108) L 03/04/25 04:28 Carbon Dioxide 21.4 mmol/L (21.0-32.0) 03/04/25 04:28 Anion Gap 18 (5-15) H 03/04/25 04:28 BUN 36 mg/dL (4-19) H 03/04/25 04:28 Creatinine 9.33 mg/dL (0.70-1.20) H* 03/04/25 04:28 Est GFR (MDRD) Non-Af 7 (>60) L 03/04/25 04:28 BUN/Creatinine Ratio 3.8 RATIO (10-20) L 03/04/25 04:28 Glucose 88 mg/dL (70-99) 03/04/25 04:28 Random Vancomycin 19.6 ug/mL (0.0-15.0) H 03/04/25 08:48 Microbiology Microbiology: Microbiology 03/03/25 08:10 Fluid - Synovial (joint) Gram Stain - Final 03/02/25 19:12 Mucosa - Nose SARS-CoV-2, Influenza & RSV (PCR) - Final Goal Trough Goal Trough: 15-20 mcg/mL Pharmacy Plan for Drug Dosing Pharmacy Plan for Drug Dosing: VANCOMYCIN LEVEL RECEIVED Current Vancomycin Dose: Dosing per HD Number of Doses Received: had 2g IV dose 03/03/25 @1023 Vancomycin Level: 19.6 Hours Since Last Dose: n/a Renal Function: on hemodialysis, schedule is M// Renal Function Trend: n/a Lab/Micro: culture data pending Vancomycin Plan/Comments: Patient had a random pre-HD level drawn which resulted in a value of 19.6, HD verified for today. Will give patient 500mg IV x1 post-HD today based on dosing protocol for HD patients. Medication to be administered post-treatment Pending Level: *RANDOM* 03/07/25 w/ am labs (prior to next planned HD) Pharmacy Service will continue to monitor and adjust dosing as required.
[2025-03-04] MEDS: Midodrine HCl 5 MG Tablet 10 MG PO ×2 (10:58→23:33)
--- NOTE | 2025-03-04 11:14 | PN.RENAL_ITS ---
Documented by User: YVONNE Domingo 03/04/25 11:16 Subjective Subjective Patient on hemodialysis, tolerating treatment well. No overnight events Objective Data Objective Data Vital Signs: Vital Signs Temp Pulse Resp BP Pulse Ox O2 Del Method O2 Flow Rate 98.3 F 88 13 123/68 H 94 Room Air 2 03/04/25 08:30 03/04/25 11:00 03/04/25 11:00 03/04/25 11:00 03/04/25 10:30 03/04/25 10:30 03/04/25 10:00 Oxygen Flow Rate (L/min) 2 Oxygen Delivery Method Room Air Weight: 121.971 kg Body Mass Index (BMI) 38.5 Intake & Output: Intake and Output for Last 24 Hours 03/02/25 03/03/25 03/04/25 23:59 23:59 23:59 Intake Total 1305 / 1305 1610.00 / 1830.00 220 / 220 Output Total 0 / 0 0 / 0 Balance 1305 / 1305 1610.00 / 1830.00 220 / 220 Lab / Micro Data 03/04/25 08:48 03/04/25 04:28 Labs: Laboratory Results - last 24 hr 03/03/25 08:10: Fluid Crystals Other, see comment, Fluid Crystal Source SYNOVIAL, Fl Crystal Path Review 03/03/25 13:25: APTT 62.0 H 03/03/25 15:39: Fluid Source Cancelled, Fluid Color Cancelled, Fluid Appearance Cancelled, Fluid WBC Cancelled, Fluid RBC Cancelled, Fluid Tot Cell Count Cancelled, Fld Polynuclear WBCs # Cancelled, Fld Polynuclear WBCs % Cancelled, Fluid Mononuclear WBCs Cancelled, Fld Mononuclear WBCs % Cancelled, Fluid Neutrophils Cancelled, Fluid Lymphocytes Cancelled, Fluid Monocytes Cancelled, Fluid Plasma Cells Cancelled, Fluid Macrophages Cancelled, Fld Mesothelial Cells Cancelled, Fluid Other Cells Cancelled, Fl Pathologist Comment Cancelled, Fluid Comment 2 Cancelled, Synovial Source RIGHT SHOULDER, Synovial Color Yellow, Synovial Appearance Turbid, Synovial WBC 75.3300 H, Synovial RBC 0.011 H, S ynovial Tot Cell Ct 76.4100 H, Synov Polynuclear WBCs 28.931, Synov Mononuclear WBCs 2.253, Synovial Neutrophils 69 H, Synovial Lymphocytes 19, Synovial Monocytes 12, Synovial Polynuclear % 92.8, Synovial Mononuclear % 7.2, Synovial Path Comment May follow 03/04/25 04:28: WBC Cancelled, Corrected WBC Cancelled, RBC Cancelled, Hgb Cancelled, Hct Cancelled, MCV Cancelled, MCH Cancelled, MCHC Cancelled, RDW Std Deviation Cancelled, RDW Coeff of Lance Cancelled, Plt Count Cancelled, MPV Cancelled, Immature Gran % (Auto) Cancelled, Neut % (Auto) Cancelled, Lymph % (Auto) Cancelled, [place] % (Auto) Cancelled, Eos % (Auto) Cancelled, Baso % (Auto) Cancelled, Absolute Neuts (auto) Cancelled, Absolute Lymphs (auto) Cancelled, Total Counted Cancelled, Neutrophils % (Manual) Cancelled, Band Neutrophils % Cancelled, Lymphocytes % (Manual) Cancelled, Monocytes % (Manual) Cancelled, Eosinophils % (Manual) Cancelled, Basophils % (Manual) Cancelled, Metamyelocytes % Cancelled, Myelocytes % Cancelled, Promyelocytes % Cancelled, Blast Cells % Cancelled, Plasma Cell % (Manual) Cancelled, Other Cells % Cancelled, Nucleated RBC % Cancelled, Nucleated RBCs/100 WBC Cancelled, Differential Comment Cancelled, Diff Path Review Cancelled, Hypersegmented Neuts Cancelled, Atypical Lymphocytes Cancelled, Reactive Lymphocytes Cancelled, Smudge Cells Cancelled, Toxic Granulation Cancelled, Toxic Vacuolation Cancelled, Dohle Bodies Cancelled, Madonna Rods Cancelled, Platelet Estimate Cancelled, Plt Morphology Comment Cancelled, RBC Morphology Cancelled 03/04/25 04:28: RBC Morphology Cancelled, Polychromasia Cancelled, Hypochromasia Cancelled, Basophilic Stippling Cancelled, Anisocytosis Cancelled, Microcytosis Cancelled, Macrocytosis Cancelled, Spherocytes Cancelled, Sickle Cells Cancelled, Target Cells Cancelled, Tear Drop Cells Cancelled, Ovalocytes Cancelled, Stomatocytes Cancelled, Whitney-[place] Bodies Cancelled, Cj Cells Cancelled, Bite Cells Cancelled, Crenated Cell Cancelled, Acanthocytes (Spur) Cancelled, Rouleaux Cancelled, Schistocytes Cancelled, PT 21.3 H, INR 1.8, Sodium 134, Potassium 4.5, Chloride 94 L, Carbon Dioxide 21.4, Anion Gap 18 H, B UN 36 H, Creatinine 9.33 H*, Estim Creat Clear Calc 13.51 L, Est GFR (MDRD) Non- Af 7 L, BUN/Creatinine Ratio 3.8 L, Glucose 88, Calcium 9.1 03/04/25 08:48: WBC 6.6, RBC 2.77 L, Hgb 7.8 L, Hct 25.2 L, MCV 91.0, MCH 28.2, MCHC 31.0 L, RDW Std Deviation 59.2 H, RDW Coeff of Lance 17.6 H, Plt Count 253, MPV 10.7, Immature Gran % (Auto) 0.300, Neut % (Auto) 68.8, Lymph % (Auto) 10.5 L, [place] % (Auto) 16.9 H, Eos % (Auto) 2.9, Baso % (Auto) 0.6, Absolute Neuts (auto) 4.5, Absolute Lymphs (auto) 0.69 L, Nucleated RBC % 0, Random Vancomycin 19.6 H Micro: Microbiology 03/03/25 08:10 Fluid - Synovial (joint) Gram Stain - Final 03/02/25 19:12 Mucosa - Nose SARS-CoV-2, Influenza & RSV (PCR) - Final Radiography Diagnostic Testing: Radiology Impression Joint Aspiration/Injection 03/03/25 08:12 IMPRESSION: 1. Successful right shoulder aspiration under fluoroscopic guidance. 2. Aspirated specimens were sent to microbiology for appropriate testing ordered by Dr. Shaffer. 3. Final results are pending. 4. Thank you for this referral. Reading Location: [place] [address] Physical Exam Narrative Alert awake oriented x 3 no obvious distress s1s2 no murmurs lungs clear abdomen soft no edema Assessment & Plan Assessment/Plan (1) ESRD (end stage renal disease): PLAN: - ESRD on hemodialysis Friday. Patient undergoing hemodialysis today and attempting fluid removal as patient/blood pressure tolerates. Outpatient EDW around 114 kg. Patient has history of hypotension and receives midodrine. Will continue with midodrine as ordered. Assessment and plan reviewed with Dr. Melendez Documented by User: Dr. Tameka Melendez MD 03/04/25 16:15 Objective Data Lab / Micro Data 03/04/25 08:48 03/04/25 04:28 Assessment & Plan Assessment/Plan (1) ESRD (end stage renal disease): PLAN: - ESRD on hemodialysis Friday. Patient undergoing hemodialysis today and attempting fluid removal as patient/blood pressure tolerates. Outpatient EDW around 114 kg. Patient has history of hypotension and receives midodrine. Will continue with midodrine as ordered. Assessment and plan reviewed with Dr. Nora wilson [employer]
[2025-03-04 11:59] LABS: Partial Thromboplast Time 33.7 Seconds (24.1-36.2)
[2025-03-04] MEDS: HEPARIN/D5w 25,000 UNITS 25,000 UNITS/250 ML IV.SOLN. 16 UNITS CONT INF (12:18)
--- NOTE | 2025-03-04 12:19 | PN.HOSP_ITS ---
Subjective Subjective Doing well, feels better than when he came in. Had his shoulder drained yesterday and is currently receiving dialysis Objective Data Objective Data Vital Signs: Vital Signs Temp Pulse Resp BP Pulse Ox O2 Del Method O2 Flow Rate 98.3 F 100 16 116/74 94 Room Air 2 03/04/25 08:30 03/04/25 12:00 03/04/25 12:00 03/04/25 12:00 03/04/25 10:30 03/04/25 11:45 03/04/25 10:00 Oxygen Flow Rate (L/min) 2 Oxygen Delivery Method Room Air Weight: 268 lb 14.4 oz Body Mass Index (BMI) 38.5 Intake & Output: Intake and Output for Last 24 Hours 03/03/25 03/04/25 03/05/25 03:59 03:59 03:59 Intake Total 1305 / 1305 1830.00 / 1830.00 0 / 0 Output Total 0 / 0 0 / 0 Balance 1305 / 1305 1830.00 / 1830.00 0 / 0 Lab / Micro Data 03/04/25 08:48 03/04/25 04:28 Labs: Laboratory Results - last 24 hr 03/03/25 08:10: Fl Crystal Path Review 03/03/25 13:25: APTT 62.0 H 03/03/25 15:39: Fluid Source Cancelled, Fluid Color Cancelled, Fluid Appearance Cancelled, Fluid WBC Cancelled, Fluid RBC Cancelled, Fluid Tot Cell Count Cancelled, Fld Polynuclear WBCs # Cancelled, Fld Polynuclear WBCs % Cancelled, Fluid Mononuclear WBCs Cancelled, Fld Mononuclear WBCs % Cancelled, Fluid Neutrophils Cancelled, Fluid Lymphocytes Cancelled, Fluid Monocytes Cancelled, Fluid Plasma Cells Cancelled, Fluid Macrophages Cancelled, Fld Mesothelial Cells Cancelled, Fluid Other Cells Cancelled, Fl Pathologist Comment Cancelled, Fluid Comment 2 Cancelled, Synovial Source RIGHT SHOULDER, Synovial Color Yellow, Synovial Appearance Turbid, Synovial WBC 75.3300 H, Synovial RBC 0.011 H, S ynovial Tot Cell Ct 76.4100 H, Synov Polynuclear WBCs 28.931, Synov Mononuclear WBCs 2.253, Synovial Neutrophils 69 H, Synovial Lymphocytes 19, Synovial Monocytes 12, Synovial Polynuclear % 92.8, Synovial Mononuclear % 7.2, Synovial Path Comment May follow 03/04/25 04:28: WBC Cancelled, Corrected WBC Cancelled, RBC Cancelled, Hgb Cancelled, Hct Cancelled, MCV Cancelled, MCH Cancelled, MCHC Cancelled, RDW Std Deviation Cancelled, RDW Coeff of Lance Cancelled, Plt Count Cancelled, MPV Cancelled, Immature Gran % (Auto) Cancelled, Neut % (Auto) Cancelled, Lymph % (Auto) Cancelled, Cooper % (Auto) Cancelled, Eos % (Auto) Cancelled, Baso % (Auto) Cancelled, Absolute Neuts (auto) Cancelled, Absolute Lymphs (auto) Cancelled, Total Counted Cancelled, Neutrophils % (Manual) Cancelled, Band Neutrophils % Cancelled, Lymphocytes % (Manual) Cancelled, Monocytes % (Manual) Cancelled, Eosinophils % (Manual) Cancelled, Basophils % (Manual) Cancelled, Metamyelocytes % Cancelled, Myelocytes % Cancelled, Promyelocytes % Cancelled, Blast Cells % Cancelled, Plasma Cell % (Manual) Cancelled, Other Cells % Cancelled, Nucleated RBC % Cancelled, Nucleated RBCs/100 WBC Cancelled, Differential Comment Cancelled, Diff Path Review Cancelled, Hypersegmented Neuts Cancelled, Atypical Lymphocytes Cancelled, Reactive Lymphocytes Cancelled, Smudge Cells Cancelled, Toxic Granulation Cancelled, Toxic Vacuolation Cancelled, Dohle Bodies Cancelled, Madonna Rods Cancelled, Platelet Estimate Cancelled, Plt Morphology Comment Cancelled, RBC Morphology Cancelled 03/04/25 04:28: RBC Morphology Cancelled, Polychromasia Cancelled, Hypochromasia Cancelled, Basophilic Stippling Cancelled, Anisocytosis Cancelled, Microcytosis Cancelled, Macrocytosis Cancelled, Spherocytes Cancelled, Sickle Cells Cancelled, Target Cells Cancelled, Tear Drop Cells Cancelled, Ovalocytes Cancelled, Stomatocytes Cancelled, [employer] Bodies Cancelled, Rifle Cells Cancelled, Bite Cells Cancelled, Crenated Cell Cancelled, Acanthocytes (Spur) Cancelled, Rouleaux Cancelled, Schistocytes Cancelled, PT 21.3 H, INR 1.8, Sodium 134, Potassium 4.5, Chloride 94 L, Carbon Dioxide 21.4, Anion Gap 18 H, B UN 36 H, Creatinine 9.33 H*, Estim Creat Clear Calc 13.51 L, Est GFR (MDRD) Non- Af 7 L, BUN/Creatinine Ratio 3.8 L, Glucose 88, Calcium 9.1 03/04/25 08:48: WBC 6.6, RBC 2.77 L, Hgb 7.8 L, Hct 25.2 L, MCV 91.0, MCH 28.2, MCHC 31.0 L, RDW Std Deviation 59.2 H, RDW Coeff of Lance 17.6 H, Plt Count 253, MPV 10.7, Immature Gran % (Auto) 0.300, Neut % (Auto) 68.8, Lymph % (Auto) 10.5 L, Cooper % (Auto) 16.9 H, Eos % (Auto) 2.9, Baso % (Auto) 0.6, Absolute Neuts (auto) 4.5, Absolute Lymphs (auto) 0.69 L, Nucleated RBC % 0, Random Vancomycin 19.6 H 03/04/25 11:37: APTT 33.7 Micro: Microbiology 03/03/25 08:10 Fluid - Synovial (joint) Gram Stain - Final 03/02/25 19:12 Mucosa - Nose SARS-CoV-2, Influenza & RSV (PCR) - Final Radiography Diagnostic Testing: Radiology Impression Joint Aspiration/Injection 03/03/25 08:12 IMPRESSION: 1. Successful right shoulder aspiration under fluoroscopic guidance. 2. Aspirated specimens were sent to microbiology for appropriate testing ordered by Dr. Shaffer. 3. Final results are pending. 4. Thank you for this referral. Reading Location: [place] [address] Physical Exam Narrative General: Alert, Oriented x3, Cooperative, No apparent distress HEENT: Atraumatic, PERRLA, EOMI, Normocephalic Oral: Moist Mucosa Neck: Supple, No JVD Lungs: Diminished, Normal air movement, No rhonchi, No wheeze, No rales Cardiovascular: Regular rate, Regular Rhythm, Normal S1, Normal S2, No murmurs Abdomen: Soft, Non Tender, Non-Distended, No Hepato-splenomegaly Extremities: No edema, Capillary Refill Less than 3 Seconds Skin: No rashes, No breakdown Musculoskeletal: No Tenderness to Palpation of Joints or Extremities Neurological: No focal neurological deficits, moves all extremities Psych/Mental Status: Normal Affect, Appropriate Assessment & Plan Assessment/Plan (1) Right arm weakness: PLAN: Plan #Right upper extremity weakness and pain * Still having pain and weakness. MRI of the brain showed no evidence of a stroke as well as CT of the brain. CTA head and neck showed no hemodynamically significant pathology. * Imaging of the right shoulder showed no evidence of fracture, and showed markedly irregular appearance of the right glenoid with widening of the glenoid fossa with right shoulder joint effusion * orthopedics on board. Ortho tried doing a tap of hte right shoulder today but got very little out. * for fluid drainage by IR today * PT OT on board. Fall precautions. 03/04/2025: No leukocytosis and Gram stain the fluid is negative so far however fluid studies do appear to be infectious so we will broaden his antibiotics to cefepime and vancomycin. Will await for cultures prior to consulting infectious disease. Appreciate Ortho's assistance #Probable right lower lobe pneumonia * On ceftriaxone and azithromycin. Patient does not really have any productive cough or fever or chills. Keep him on this for now. Urine for strep and Legionella pending 03/04/2025: Continue with cefepime and Vanco #ESRD * on HD MWF. Nephrology on board. * Also on midodrine due to chronic orthostasis with dialysis. Has dialysis through a right AV fistula as she has had AV graft dysfunction requiring embolectomy. * Elevated troponins initial troponin was 202 today. Troponin was elevated in January 2025 at 163. Insignificant #Mitral valve stenosis: * S/p mitral valve replacement. Follow up with cardiology on outpatient basis. #Chronic wounds: has chronic wounds on his upper back. Wound care on board. #Paroxysmal afib: * on coumadin. Goal INR is 2.5-3.5. * INR is only 1.8 today. To adjust Coumadin dose as needed. 03/04/2025: Will continue with the heparin drip for his A-fib as well as the fact that he has a mitral valve replacement therefore his Coumadin being supratherapeutic leads to potential clot issues # Hypothyroidism: * On Synthroid. TSH is 5.16. * Was also previously elevated on 03/01/2025 at 5.3 and 01/17/2024 at 4.92. * Counseled on compliance with Synthroid. #Class II obesity: * BMI is 30.6. * Complicates acute care, expected recovery and prognosis. DVT: Heparin drip Charges/Coding Visit Charges Inpatient E&M: 11025 Subs Hosp L2 NIHSS NIHSS Nursing Documentation NIHSS Nursing Documentation: NIHSS: Ischemic Stroke/TIA Start: 03/03/25 01:00 Text: For PCU Patients: NIH and Neuro Check every 4 Status: Complete hours, PRN and with change in RN caregiver. Freq: [id number] Protocol: Activity Type Activity Date Activity User E-sign Co-sign Detail Recorded Client Recorded Date Recorded By Document 03/03/25 10:00 [id number] 03/03/25 13:31 NB 03/03/25 10:00 NIH Stroke Scale [NIHSS] A score of 0 is normal or asymptomatic . Total possible score is 42. Inpatient: RN or Physician to activate a stroke alert for onset of new stroke symptoms or with NIHSS increase >/= 3 points. Following change in neurological status, NIHSS will be performed per physician order or more frequently PRN. -1a. Level of Consciousness 0 - Alert; keenly responsive -1b. LOC Questions 0 - Answers BOTH questions correctly -1c. LOC Commands 0 - Performs BOTH tasks correctly -2. Best Gaze 0 - Normal -3. Visual 0 - No visual loss -4. Facial Palsy 0 - Normal symmetrical movements -5a. Left Arm 0 - No drift; arm holds 90 ( or 45) degrees for full 10 seconds -5b. Right Arm 2 - Some effort against gravity; -6a. Left Leg 0 - No drift; leg holds 30- degree position for full 5 seconds -6b. Right Leg 0 - No drift; leg holds 30- degree position for full 5 seconds -7. Limb Ataxia 0 - Absent -8. Sensory 0 - Normal; no sensory loss -9. Best Language 0 - No aphasia; normal -10. Dysarthria 0 - Normal -11. Extinction and Inattention 0 - No abnormality -Total 2 Query Text:A score of 0 is normal or asymptomatic. Total possible score is 42 . ED: Notify Physician for NIHSS increase by > / = 3 points. Inpatient: RN or Physician to activate a stroke alert for NIHSS increase of > / = 3 points. Coma Scale [Assess] -Eye Opening Spontaneous -Motor Obeys Commands -Verbal Oriented [Total] -Coma Scale Total 15
[2025-03-04] MEDS: Heparin Injection (Vial) 5,000 UNIT/ML VIAL IV ×2 (12:22→19:33)
[2025-03-04] MEDS: SEVELAMER CARBONATE 800 MG TABLET 3200 MG PO ×2 (12:27→16:10)
[2025-03-04] MEDS: Heparin 10,000 UNITS/10 ML Vial IV (12:43)
[2025-03-04] MEDS: Cinacalcet HCl 30 MG Tablet 90 MG PO (13:53)
[2025-03-04] MEDS: Cefepime HCl 2 GM in 0.9% Normal Saline (100mL MB+) 100 ML IV (14:10)
--- NOTE | 2025-03-04 15:25 | CASEMGMT ---
RACHEL PARNELL chart review: Patient was admitted 02/21-02/24 for weakness and Anemia with CKD. See assessment from 02/22/25. Patient was discharged to home with family support and follow-up plans in place. Patient returned to [facility] ED on 03/03/25 for increased weakness and pain and inability to move right arm. Patient was admitted for rule out CVA and possible septic arthritis to right shoulder. Patient had aspiration of right should, cultures are pending. RACHEL PARNELL in to discuss readmission and needs at discharge. Patient states he was taking medications as prescribed and attending outpatient HD. Patient states he has not schedule appt with PCP. RACHEL PARNELL educated patient on importance of following up with PCP. Patient states he is too weak to walk from his house to his car and may need additional therapy at discharge. RACHEL PARNELL discussed SNF vs HHC and possible need for IV ATBs. Per hospitalist patient will be here through the weekend. RN CM encourage patient to continue to work with therapy and CM will follow-up on Friday for needs at discharge. Patient agreeable to plan has cultures are still pending. Patient had no further questions or concerns. CM will continue to follow this patient and plan for a safe discharge.
--- NOTE | 2025-03-04 15:51 | CASEMGMT ---
SW met with patient. Introduced self and role at [facility]. Patient was at [facility] last week and triggered SDOH for same concerns. SW asked patient if he still had those resources and he told SW probably not. SW provided patient with information on [employer], [employer], [employer] street card, and a list of prescription assistance programs. Mireya Gudino MSW PACO
[2025-03-04] MEDS: Vancomycin IV 500 MG/100 ML BAG 100 MG IV (17:15)
[2025-03-04] MEDS: Morphine 2 MG/ML Syringe 1 MG IV (17:55)
[2025-03-04 18:46] LABS: Partial Thromboplast Time 53.3 Seconds (24.1-36.2)
[2025-03-05] VITALS (7 sets, daily range): BP systolic 99–153; BP diastolic 51–112; PULSE 101–113; RESP 15–20; TEMP 36.5–36.9; O2SAT 88–100; BMI 37.6; BMI 38.2
[2025-03-05 02:01] LABS: Partial Thromboplast Time 61.8 Seconds (24.1-36.2)
[2025-03-05] MEDS: oxyCODONE 5 MG Tablet PO ×2 (02:33→21:23)
[2025-03-05] MEDS: MELATONIN 3 MG TABLET PO (02:35)
[2025-03-05] MEDS: Morphine 2 MG/ML Syringe 1 MG IV ×2 (05:24→12:56)
[2025-03-05] MEDS: Levothyroxine 25 MCG TABLET PO (05:25)
[2025-03-05] MEDS: HEPARIN/D5w 25,000 UNITS 25,000 UNITS/250 ML IV.SOLN. 17 UNITS CONT INF ×2 (05:25→20:24)
[2025-03-05] MEDS: Midodrine HCl 5 MG Tablet 10 MG PO ×3 (05:25→21:23)
[2025-03-05] MEDS: 0.9% Saline Lock 10 ML Syringe IV ×3 (05:25→21:30)
--- NOTE | 2025-03-05 05:49 | NURSING ---
Pt NPO for possible procedure today. Pt upset and stated that it is his birthday, his family is coming in, and he is going to eat what he wants.
[2025-03-05 07:29] LABS: Absolute Lymphocyte Count 0.76 X10^3/uL (0.83-4.51); Absolute Neutrophil Count 3.9 X10^3/uL (2.0-7.7); Basophil# 0.04 X10^3/uL; Basophil% 0.6 % (0-1); Eosinophil# 0.31 X10^3/uL; Eosinophils% 4.6 % (0-5); Hematocrit 24.6 % (40-54); Hemoglobin 7.5 g/dL (13.0-16.5); Lymphocyte # 0.76 X10^3/ul (0.83-4.51); Lymphocyte % 11.3 % (19-41); Mean Corp Hgb Conc 30.5 g/dL (32-36); Mean Corpuscular Volume 91.8 fL (80-94); Mean Platelet Vol. 11.1 fl (6.2-12.0); Monocyte# 1.72 X10^3/uL; Monocyte% 25.5 % (0-10); NRBC Flagged by Analyzer 0 % (0-5); Neutrophil % 57.7 % (47-70); POSITIVE DIFFERENTIAL YES; Platelet Count 233 K/mm3 (150-450); RBC Distribution Width CV 17.5 % (11.6-14.6); RBC Distribution Width SD 58.8 fl (35.1-43.9); Red Blood Count 2.68 M/mm3 (4.6-6.2); White Blood Count 6.8 K/mm3 (4.4-11.0)
[2025-03-05 07:36] LABS: Differential Indicated SCAN CRITERIA MET
[2025-03-05 07:39] LABS: Partial Thromboplast Time 64.7 Seconds (24.1-36.2)
[2025-03-05 08:12] LABS: Platelet Estimate A (ADEQ)
[2025-03-05 08:16] LABS: Anion Gap 16 (5-15); BUN 29 mg/dL (4-19); BUN/Creat Ratio 3.7 RATIO (10-20); Calcium,Total 8.6 mg/dL (7.6-11.0); Carbon Dioxide 22.5 mmol/L (21.0-32.0); Chloride 96 mmol/L (98-108); Creatinine, Serum 7.93 mg/dL (0.70-1.20); EST Glomerular Filtration Rate 8 (>60); Estimated Creatinine Clearance 15.66 ml/min (50-250); Glucose 93 mg/dL (70-99); Potassium 4.1 mmol/L (3.3-5.1); Sodium Level 134 mmol/L (133-145)
[2025-03-05] MEDS: Cefepime HCl 2 GM in 0.9% Normal Saline (100mL MB+) 100 ML IV (09:52)
--- NOTE | 2025-03-05 10:32 | PN.HOSP_ITS ---
Subjective Subjective Doing well, no issues overnight. Awaiting evaluation by orthopedic surgery for feeling the need to washout the shoulder not today. Objective Data Objective Data Vital Signs: Vital Signs Temp Pulse Resp BP Pulse Ox O2 Del Method O2 Flow Rate 98.0 F 113 H 17 107/72 99 Room Air 2 03/05/25 05:20 03/05/25 05:20 03/05/25 05:20 03/05/25 05:20 03/05/25 05:20 03/05/25 05:20 03/04/25 14:38 Oxygen Flow Rate (L/min) 2 Oxygen Delivery Method Room Air Weight: 266 lb 12.149 oz Body Mass Index (BMI) 38.2 Intake & Output: Intake and Output for Last 24 Hours 03/04/25 03/05/25 03/06/25 03:59 03:59 03:59 Intake Total 1830.00 / 1830.00 1232.77 / 1232.77 465.96 / 465.96 Output Total 0 / 0 3030 / 3030 0 / 0 Balance 1830.00 / 1830.00 -1797.23 / -1797.23 465.96 / 465.96 Lab / Micro Data 03/05/25 07:02 03/05/25 07:02 Labs: Laboratory Results - last 24 hr 03/04/25 11:37: APTT 33.7 03/04/25 18:28: APTT 53.3 H 03/05/25 01:30: APTT 61.8 H 03/05/25 07:02: WBC 6.8, RBC 2.68 L, Hgb 7.5 L, Hct 24.6 L, MCV 91.8, MCH 28.0, MCHC 30.5 L, RDW Std Deviation 58.8 H, RDW Coeff of Lance 17.5 H, Plt Count 233, MPV 11.1, Immature Gran % (Auto) 0.300, Neut % (Auto) 57.7, Lymph % (Auto) 11.3 L, [place] % (Auto) 25.5 H, Eos % (Auto) 4.6, Baso % (Auto) 0.6, Absolute Neuts (auto) 3.9, Absolute Lymphs (auto) 0.76 L, Nucleated RBC % 0, Platelet Estimate A, APTT 64.7 H, Sodium 134, Potassium 4.1, Chloride 96 L, Carbon Dioxide 22.5, A nion Gap 16 H, BUN 29 H, Creatinine 7.93 H*, Estim Creat Clear Calc 15.66 L, Est GFR (MDRD) Non-Af 8 L, BUN/Creatinine Ratio 3.7 L, Glucose 93, Calcium 8.6 Micro: Microbiology 03/03/25 08:10 Fluid - Synovial (joint) Gram Stain - Final 03/02/25 19:12 Mucosa - Nose SARS-CoV-2, Influenza & RSV (PCR) - Final Radiography Diagnostic Testing: Radiology Impression Echocardiogram 03/03/25 01:00 Interpretation Summary Limited study The estimated ejection fraction is 65 %. Ordering Physician: Doreen^Javier^^ Referring Physician: DANIEL PCP Performed By: Caroline Valero, RDCS, RVT Physical Exam Narrative General: Alert, Oriented x3, Cooperative, No apparent distress HEENT: Atraumatic, PERRLA, EOMI, Normocephalic Oral: Moist Mucosa Neck: Supple, No JVD Lungs: Diminished, Normal air movement, No rhonchi, No wheeze, No rales Cardiovascular: Regular rate, Regular Rhythm, Normal S1, Normal S2, No murmurs Abdomen: Soft, Non Tender, Non-Distended, No Hepato-splenomegaly Extremities: Edema, Capillary Refill Less than 3 Seconds Skin: No rashes, No breakdown Musculoskeletal: No Tenderness to Palpation of Joints or Extremities Neurological: No focal neurological deficits, moves all extremities Psych/Mental Status: Normal Affect, Appropriate Assessment & Plan Assessment/Plan (1) Right arm weakness: PLAN: Plan #Right upper extremity weakness and pain * Still having pain and weakness. MRI of the brain showed no evidence of a stroke as well as CT of the brain. CTA head and neck showed no hemodynamically significant pathology. * Imaging of the right shoulder showed no evidence of fracture, and showed markedly irregular appearance of the right glenoid with widening of the glenoid fossa with right shoulder joint effusion * orthopedics on board. Ortho tried doing a tap of hte right shoulder today but got very little out. * for fluid drainage by IR today * PT OT on board. Fall precautions. 03/04/2025: No leukocytosis and Gram stain the fluid is negative so far however fluid studies do appear to be infectious so we will broaden his antibiotics to cefepime and vancomycin. Will await for cultures prior to consulting infectious disease. Appreciate Ortho's assistance #Probable right lower lobe pneumonia * On ceftriaxone and azithromycin. Patient does not really have any productive cough or fever or chills. Keep him on this for now. Urine for strep and Legionella pending 03/04/2025: Continue with cefepime and Vanco #ESRD with anemia of chronic disease * on HD MWF. Nephrology on board. * Also on midodrine due to chronic orthostasis with dialysis. Has dialysis through a right AV fistula as she has had AV graft dysfunction requiring embolectomy. * Elevated troponins initial troponin was 202 today. Troponin was elevated in January 2025 at 163. Insignificant 03/05/2025: Hemoglobin at baseline, will monitor #Mitral valve stenosis: * S/p mitral valve replacement. Follow up with cardiology on outpatient basis. 03/05/2025: Will continue with heparin drip given his mitral valve basement as the INR needs to be 2.5 #Chronic wounds: has chronic wounds on his upper back. Wound care on board. #Paroxysmal afib: * on coumadin. Goal INR is 2.5-3.5. * INR is only 1.8 today. To adjust Coumadin dose as needed. 03/04/2025: Will continue with the heparin drip for his A-fib as well as the fact that he has a mitral valve replacement therefore his Coumadin being supratherapeutic leads to potential clot issues 03/05/2025: Echocardiogram with an EF of 65%, was a limited study # Hypothyroidism: * On Synthroid. TSH is 5.16. * Was also previously elevated on 03/01/2025 at 5.3 and 01/17/2024 at 4.92. * Counseled on compliance with Synthroid. #Class II obesity: * BMI is 30.6. * Complicates acute care, expected recovery and prognosis. DVT: Heparin drip Charges/Coding Visit Charges Inpatient E&M: 72337 Subs Hosp L2 NIHSS NIHSS Nursing Documentation NIHSS Nursing Documentation: NIHSS: Ischemic Stroke/TIA Start: 03/03/25 01:00 Text: For PCU Patients: NIH and Neuro Check every 4 Status: Complete hours, PRN and with change in RN caregiver. Freq: [id number] Protocol: Activity Type Activity Date Activity User E-sign Co-sign Detail Recorded Client Recorded Date Recorded By Document 03/03/25 10:00 [id number] 03/03/25 13:31 NB 03/03/25 10:00 NIH Stroke Scale [NIHSS] A score of 0 is normal or asymptomatic . Total possible score is 42. Inpatient: RN or Physician to activate a stroke alert for onset of new stroke symptoms or with NIHSS increase >/= 3 points. Following change in neurological status, NIHSS will be performed per physician order or more frequently PRN. -1a. Level of Consciousness 0 - Alert; keenly responsive -1b. LOC Questions 0 - Answers BOTH questions correctly -1c. LOC Commands 0 - Performs BOTH tasks correctly -2. Best Gaze 0 - Normal -3. Visual 0 - No visual loss -4. Facial Palsy 0 - Normal symmetrical movements -5a. Left Arm 0 - No drift; arm holds 90 ( or 45) degrees for full 10 seconds -5b. Right Arm 2 - Some effort against gravity; -6a. Left Leg 0 - No drift; leg holds 30- degree position for full 5 seconds -6b. Right Leg 0 - No drift; leg holds 30- degree position for full 5 seconds -7. Limb Ataxia 0 - Absent -8. Sensory 0 - Normal; no sensory loss -9. Best Language 0 - No aphasia; normal -10. Dysarthria 0 - Normal -11. Extinction and Inattention 0 - No abnormality -Total 2 Query Text:A score of 0 is normal or asymptomatic. Total possible score is 42 . ED: Notify Physician for NIHSS increase by > / = 3 points. Inpatient: RN or Physician to activate a stroke alert for NIHSS increase of > / = 3 points. Coma Scale [Assess] -Eye Opening Spontaneous -Motor Obeys Commands -Verbal Oriented [Total] -Coma Scale Total 15
[2025-03-05] MEDS: SEVELAMER CARBONATE 800 MG TABLET 3200 MG PO ×2 (11:42→16:37)
[2025-03-05 12:07] LABS: International Normalized Ratio 1.6; Prothrombin Time (Protime)PT. 19.2 SECONDS (11.7-14.9)
--- NOTE | 2025-03-05 14:49 | PN.ORTHO_ITS ---
Subjective Subjective Patient seen and examined. Reports minimal pain. Feels he is moving his shoulder and arm better today. Knee pain has resolved. Denies any fevers or chills, nausea or vomiting, chest pain or shortness of breath. Objective Data Objective Data Vital Signs: Vital Signs Temp Pulse Resp BP Pulse Ox O2 Del Method O2 Flow Rate 97.7 F L 101 H 18 118/75 98 Room Air 2 03/05/25 11:45 03/05/25 11:45 03/05/25 11:45 03/05/25 11:45 03/05/25 11:45 03/05/25 11:45 03/04/25 14:38 Oxygen Flow Rate (L/min) 2 Oxygen Delivery Method Room Air Weight: 266 lb 12.149 oz Body Mass Index (BMI) 38.2 Intake & Output: Intake and Output for Last 24 Hours 03/03/25 03/04/25 03/05/25 23:59 23:59 23:59 Intake Total 1610.00 / 1830.00 1335.47 / 1335.47 923.26 / 923.26 Output Total 0 / 0 3030 / 3030 0 / 0 Balance 1610.00 / 1830.00 -1694.53 / -1694.53 923.26 / 923.26 Lab / Micro Data 03/05/25 07:02 03/05/25 07:02 Labs: Laboratory Results - last 24 hr 03/04/25 18:28: APTT 53.3 H 03/05/25 01:30: APTT 61.8 H 03/05/25 07:02: WBC 6.8, RBC 2.68 L, Hgb 7.5 L, Hct 24.6 L, MCV 91.8, MCH 28.0, MCHC 30.5 L, RDW Std Deviation 58.8 H, RDW Coeff of Lance 17.5 H, Plt Count 233, MPV 11.1, Immature Gran % (Auto) 0.300, Neut % (Auto) 57.7, Lymph % (Auto) 11.3 L, [place] % (Auto) 25.5 H, Eos % (Auto) 4.6, Baso % (Auto) 0.6, Absolute Neuts (auto) 3.9, Absolute Lymphs (auto) 0.76 L, Nucleated RBC % 0, Platelet Estimate A, PT 19.2 H, INR 1.6, APTT 64.7 H, Sodium 134, Potassium 4.1, Chloride 96 L, Carbon Dioxide 22.5, Anion Gap 16 H, BUN 29 H, Creatinine 7.93 H*, Estim Creat Clear Calc 15.66 L, Est GFR (MDRD) Non-Af 8 L, BUN/Creatinine Ratio 3.7 L, Glucose 93, Calcium 8.6 Micro: Microbiology 03/03/25 08:10 Fluid - Synovial (joint) Gram Stain - Final 03/02/25 19:12 Mucosa - Nose SARS-CoV-2, Influenza & RSV (PCR) - Final Radiography Diagnostic Testing: Radiology Impression Echocardiogram 03/03/25 01:00 Interpretation Summary Limited study The estimated ejection fraction is 65 %. Ordering Physician: Sarah^Myriam^Javier^^ Referring Physician: NO PCP Performed By: Caroline Valero, MELICS, RVT Physical Exam Narrative General -A&Ox3, NAD, appears stated age. Vital signs stable, afebrile. Respiratory -normal work of breathing, no intercostal retractions. CV -pulses regular, brisk capillary refill ?4 limbs. Abdomen-soft, nontender, nondistended. No guarding, rigidity, rebound tenderness. Musculoskeletal/neurologic -nontender left upper extremity, left lower extremity. No tenderness to the right knee without effusion. No short arc range of motion pain of the right knee. Sensation tact light touch throughout. Right upper extremity: Tolerates internal/external rotation well without significant pain. Able to actively flex his shoulder to approximately 70 degrees against gravity. [employer] strength is 4+/5. Radial pulse 2+ prescriptively from the fingertips. No obvious cellulitis, rashes or lesions. No significant warmth to touch about the right shoulder. Subclavian port is in place in the right. Assessment & Plan Assessment/Plan (1) Septic arthritis of shoulder, right: PLAN: Patient seen and examined. No growth to date from cultures from right shoulder arthrocentesis. Continue empiric antibiotics. Appears to be improving with medical treatment for presumed septic arthritis the right shoulder. Recommended continued nonsurgical treatment at this time given the patient's response to medical treatment and high risk for surgery. Demonstrated and encouraged exercises with table slides, pendulums right shoulder and quality assurance nurse exercises. He expressed understanding. Will follow.
--- NOTE | 2025-03-06 00:29 | ED.RN ---
patient requesting this RN change dressing to back a this time. Refused dressing changes to b/l breasts.
[2025-03-06 00:36] VITALS: BMI 38.2
[2025-03-06 04:30] VITALS: BP 137/66; PULSE 106; RESP 20; TEMP 36.8; O2SAT 100
[2025-03-06 04:56] LABS: Absolute Lymphocyte Count 0.97 X10^3/uL (0.83-4.51); Absolute Neutrophil Count 4.2 X10^3/uL (2.0-7.7); Basophil# 0.03 X10^3/uL; Basophil% 0.4 % (0-1); Eosinophil# 0.34 X10^3/uL; Eosinophils% 4.7 % (0-5); Hematocrit 25.4 % (40-54); Hemoglobin 7.8 g/dL (13.0-16.5); Lymphocyte # 0.97 X10^3/ul (0.83-4.51); Lymphocyte % 13.4 % (19-41); Mean Corp Hgb Conc 30.7 g/dL (32-36); Mean Corpuscular Hgb 28.2 pg (27.0-32.0); Mean Corpuscular Volume 91.7 fL (80-94); Mean Platelet Vol. 11.2 fl (6.2-12.0); Monocyte# 1.62 X10^3/uL; Monocyte% 22.4 % (0-10); NRBC Flagged by Analyzer 0 % (0-5); Neutrophil # 4.23 X10^3/uL (2.7-7.7); Neutrophil % 58.5 % (47-70); POSITIVE DIFFERENTIAL YES; Platelet Count 258 K/mm3 (150-450); RBC Distribution Width CV 17.5 % (11.6-14.6); Red Blood Count 2.77 M/mm3 (4.6-6.2); White Blood Count 7.2 K/mm3 (4.4-11.0)
[2025-03-06 05:01] LABS: Differential Indicated SCAN CRITERIA MET
[2025-03-06] MEDS: 0.9% Saline Lock 10 ML Syringe IV ×2 (05:03→17:17)
[2025-03-06] MEDS: Levothyroxine 25 MCG TABLET PO (05:03)
[2025-03-06] MEDS: Midodrine HCl 5 MG Tablet 10 MG PO ×3 (05:03→22:10)
[2025-03-06] MEDS: Morphine 2 MG/ML Syringe 1 MG IV ×2 (05:03→17:17)
[2025-03-06 05:10] LABS: Partial Thromboplast Time 66.6 Seconds (24.1-36.2)
[2025-03-06 05:32] LABS: Anion Gap 18 (5-15); BUN 39 mg/dL (4-19); BUN/Creat Ratio 3.8 RATIO (10-20); Calcium,Total 8.4 mg/dL (7.6-11.0); Carbon Dioxide 22.3 mmol/L (21.0-32.0); Chloride 97 mmol/L (98-108); EST Glomerular Filtration Rate 6 (>60); Estimated Creatinine Clearance 12.18 ml/min (50-250); Glucose 96 mg/dL (70-99); Potassium 4.3 mmol/L (3.3-5.1); Sodium Level 137 mmol/L (133-145)
[2025-03-06 05:44] LABS: Differential Comment SCANNED
[2025-03-06 06:00] VITALS: BMI 37.8
--- NOTE | 2025-03-06 06:48 | PN.HOSP_ITS ---
Subjective Subjective Continuing with medical management at this time, currently cultures are negative though synovial fluid culture still pending Objective Data Objective Data Vital Signs: Vital Signs Temp Pulse Resp BP Pulse Ox O2 Del Method O2 Flow Rate 98.2 F 106 H 20 H 137/66 H 100 Room Air 2 03/06/25 04:30 03/06/25 04:30 03/06/25 04:30 03/06/25 04:30 03/06/25 04:30 03/06/25 04:32 03/04/25 14:38 Oxygen Flow Rate (L/min) 2 Oxygen Delivery Method Room Air Weight: 266 lb 12.149 oz Body Mass Index (BMI) 38.2 Intake & Output: Intake and Output for Last 24 Hours 03/05/25 03/06/25 03/07/25 03:59 03:59 03:59 Intake Total 1232.77 / 1232.77 1607.23 / 1607.23 903.28 / 903.28 Output Total 3030 / 3030 0 / 0 Balance -1797.23 / -1797.23 1607.23 / 1607.23 903.28 / 903.28 Lab / Micro Data 03/06/25 03:50 03/06/25 03:50 Labs: Laboratory Results - last 24 hr 03/05/25 07:02: WBC 6.8, RBC 2.68 L, Hgb 7.5 L, Hct 24.6 L, MCV 91.8, MCH 28.0, MCHC 30.5 L, RDW Std Deviation 58.8 H, RDW Coeff of Lance 17.5 H, Plt Count 233, MPV 11.1, Immature Gran % (Auto) 0.300, Neut % (Auto) 57.7, Lymph % (Auto) 11.3 L, [place] % (Auto) 25.5 H, Eos % (Auto) 4.6, Baso % (Auto) 0.6, Absolute Neuts (auto) 3.9, Absolute Lymphs (auto) 0.76 L, Nucleated RBC % 0, Platelet Estimate A, PT 19.2 H, INR 1.6, APTT 64.7 H, Sodium 134, Potassium 4.1, Chloride 96 L, Carbon Dioxide 22.5, Anion Gap 16 H, BUN 29 H, Creatinine 7.93 H*, Estim Creat Clear Calc 15.66 L, Est GFR (MDRD) Non-Af 8 L, BUN/Creatinine Ratio 3.7 L, Glucose 93, Calcium 8.6 03/06/25 03:50: WBC 7.2, RBC 2.77 L, Hgb 7.8 L, Hct 25.4 L, MCV 91.7, MCH 28.2, MCHC 30.7 L, RDW Std Deviation 59.0 H, RDW Coeff of Lance 17.5 H, Plt Count 258, MPV 11.2, Immature Gran % (Auto) 0.600, Neut % (Auto) 58.5, Lymph % (Auto) 13.4 L, [place] % (Auto) 22.4 H, Eos % (Auto) 4.7, Baso % (Auto) 0.4, Absolute Neuts (auto) 4.2, Absolute Lymphs (auto) 0.97, Nucleated RBC % 0, Differential Comment SCANNED, APTT 66.6 H, Sodium 137, Potassium 4.3, Chloride 97 L, Carbon Dioxide 22.3, Anion Gap 18 H, BUN 39 H, Creatinine 10.20 H*, Estim Creat Clear Calc 12.18 L, Est GFR (MDRD) Non-Af 6 L, BUN/Creatinine Ratio 3.8 L, Glucose 96, Calcium 8.4 Micro: Microbiology 03/03/25 08:10 Fluid - Synovial (joint) Gram Stain - Final 03/02/25 19:12 Mucosa - Nose SARS-CoV-2, Influenza & RSV (PCR) - Final Physical Exam Narrative General: Alert, Oriented x3, Cooperative, No apparent distress HEENT: Atraumatic, PERRLA, EOMI, Normocephalic Oral: Moist Mucosa Neck: Supple, No JVD Lungs: Diminished, Normal air movement, No rhonchi, No wheeze, No rales Cardiovascular: Regular rate, Regular Rhythm, Normal S1, Normal S2, No murmurs Abdomen: Soft, Non Tender, Non-Distended, No Hepato-splenomegaly Extremities: Edema, Capillary Refill Less than 3 Seconds Skin: No rashes, No breakdown Musculoskeletal: No Tenderness to Palpation of Joints or Extremities Neurological: No focal neurological deficits, moves all extremities Psych/Mental Status: Normal Affect, Appropriate Assessment & Plan Assessment/Plan (1) Right arm weakness: PLAN: Plan 1. Right upper extremity weakness and pain ? Status post shoulder tap by IR ? Fluid cultures are pending ? Can obtain ID consult in the morning ? Continue with broad-spectrum antibiotics ? He had a neurological workup because of the weakness, MRI of the brain was negative for stroke as was the CT of the brain, CTA of the head and neck was negative as well ? Shoulder imaging did demonstrate a fluid collection in the fluid did appear infected however Gram stain so far is negative 2. Right lower lobe pneumonia ? Initially had been placed on Rocephin and azithromycin however given the shoulder pathology this was broadened to cefepime and vancomycin 3. Paroxysmal A-fib/mitral valve stenosis status post replacement ? Continue with the heparin drip to maintain anticoagulation ? Maintain Coumadin dosing to bridge anticoagulation, there does not appear to be a plan for washout at this time ? INR is 1.6 ? Echocardiogram with an EF of 65% 4. Stage renal disease with anemia of chronic disease ? Continue with dialysis ? Appreciate nephrology ? Continue with midodrine 5. Hypothyroidism ? Continue with Synthroid ? TSH is 5.16 ? Monitor as an outpatient DVT: Heparin drip Charges/Coding Visit Charges Inpatient E&M: 14931 Subs Hosp L2 NIHSS NIHSS Nursing Documentation NIHSS Nursing Documentation: NIHSS: Ischemic Stroke/TIA Start: 03/03/25 01:00 Text: For PCU Patients: NIH and Neuro Check every 4 Status: Complete hours, PRN and with change in RN caregiver. Freq: [id number] Protocol: Activity Type Activity Date Activity User E-sign Co-sign Detail Recorded Client Recorded Date Recorded By Document 03/03/25 10:00 [id number] 03/03/25 13:31 03/03/25 10:00 NIH Stroke Scale [NIHSS] A score of 0 is normal or asymptomatic . Total possible score is 42. Inpatient: RN or Physician to activate a stroke alert for onset of new stroke symptoms or with NIHSS increase >/= 3 points. Following change in neurological status, NIHSS will be performed per physician order or more frequently PRN. -1a. Level of Consciousness 0 - Alert; keenly responsive -1b. LOC Questions 0 - Answers BOTH questions correctly -1c. LOC Commands 0 - Performs BOTH tasks correctly -2. Best Gaze 0 - Normal -3. Visual 0 - No visual loss -4. Facial Palsy 0 - Normal symmetrical movements -5a. Left Arm 0 - No drift; arm holds 90 ( or 45) degrees for full 10 seconds -5b. Right Arm 2 - Some effort against gravity; -6a. Left Leg 0 - No drift; leg holds 30- degree position for full 5 seconds -6b. Right Leg 0 - No drift; leg holds 30- degree position for full 5 seconds -7. Limb Ataxia 0 - Absent -8. Sensory 0 - Normal; no sensory loss -9. Best Language 0 - No aphasia; normal -10. Dysarthria 0 - Normal -11. Extinction and Inattention 0 - No abnormality -Total 2 Query Text:A score of 0 is normal or asymptomatic. Total possible score is 42 . ED: Notify Physician for NIHSS increase by > / = 3 points. Inpatient: RN or Physician to activate a stroke alert for NIHSS increase of > / = 3 points. Coma Scale [Assess] -Eye Opening Spontaneous -Motor Obeys Commands -Verbal Oriented [Total] -Coma Scale Total 15
[2025-03-06 10:45] VITALS: BP 126/76; PULSE 96; RESP 16; TEMP 36; O2SAT 100
[2025-03-06] MEDS: Cefepime HCl 2 GM in 0.9% Normal Saline (100mL MB+) 100 ML IV (10:52)
[2025-03-06] MEDS: Cinacalcet HCl 30 MG Tablet 90 MG PO (10:53)
[2025-03-06] MEDS: SEVELAMER CARBONATE 800 MG TABLET 3200 MG PO ×2 (10:53→16:49)
[2025-03-06] MEDS: Aspirin E.C. 81 MG Tablet PO (10:53)
--- NOTE | 2025-03-06 12:26 | PCM.PN.ORT ---
Subjective Subjective Patient seen and examined. Reports some in his right shoulder pain last night which was relieved with pain medicine otherwise he states he is pain-free. Denies fevers, chills, nausea vomiting, chest pain or shortness of breath. The right knee pain is resolved. Objective Data Objective Data Vital Signs: Vital Signs Temp Pulse Resp BP Pulse Ox O2 Del Method O2 Flow Rate 96.8 F L 96 16 126/76 H 100 Nasal Cannula 2 03/06/25 10:45 03/06/25 10:45 03/06/25 10:45 03/06/25 10:45 03/06/25 10:45 03/06/25 10:45 03/06/25 10:45 Oxygen Flow Rate (L/min) 2 Oxygen Delivery Method Nasal Cannula Weight: 263 lb 7.238 oz Body Mass Index (BMI) 37.8 Intake & Output: Intake and Output for Last 24 Hours 03/04/25 03/05/25 03/06/25 23:59 23:59 23:59 Intake Total 1335.47 / 1335.47 1724.53 / 1724.53 1003.28 / 1003.28 Output Total 3030 / 3030 0 / 0 Balance -1694.53 / -1694.53 1724.53 / 1724.53 1003.28 / 1003.28 Lab / Micro Data 03/06/25 03:50 03/06/25 03:50 Labs: Laboratory Results - last 24 hr 03/06/25 03:50: WBC 7.2, RBC 2.77 L, Hgb 7.8 L, Hct 25.4 L, MCV 91.7, MCH 28.2, MCHC 30.7 L, RDW Std Deviation 59.0 H, RDW Coeff of Lance 17.5 H, Plt Count 258, MPV 11.2, Immature Gran % (Auto) 0.600, Neut % (Auto) 58.5, Lymph % (Auto) 13.4 L, [place] % (Auto) 22.4 H, Eos % (Auto) 4.7, Baso % (Auto) 0.4, Absolute Neuts (auto) 4.2, Absolute Lymphs (auto) 0.97, Nucleated RBC % 0, Differential Comment SCANNED, APTT 66.6 H, Sodium 137, Potassium 4.3, Chloride 97 L, Carbon Dioxide 22.3, Anion Gap 18 H, BUN 39 H, Creatinine 10.20 H*, Estim Creat Clear Calc 12.18 L, Est GFR (MDRD) Non-Af 6 L, BUN/Creatinine Ratio 3.8 L, Glucose 96, Calcium 8.4 Micro: Microbiology 03/03/25 08:10 Fluid - Synovial (joint) Gram Stain - Final 03/02/25 19:12 Mucosa - Nose SARS-CoV-2, Influenza & RSV (PCR) - Final Physical Exam Narrative General -A&Ox3, NAD, appears stated age. Vital signs stable, afebrile. Respiratory -normal work of breathing, no intercostal retractions. CV -pulses regular, brisk capillary refill ?4 limbs. Abdomen-soft, nontender, nondistended. No guarding, rigidity, rebound tenderness. Musculoskeletal/neurologic -nontender left upper extremity, left lower extremity. No tenderness to the right knee without effusion. No short arc range of motion pain of the right knee. Sensation tact light touch throughout. Right upper extremity: Tolerates internal/external rotation well without significant pain. Able to actively flex his shoulder to approximately 70 degrees against gravity. Drivability Technician strength is 4+/5. Radial pulse 2+ prescriptively from the fingertips. No obvious cellulitis, rashes or lesions. No significant warmth to touch about the right shoulder. Subclavian port is in place in the right. Assessment & Plan Assessment/Plan (1) Septic arthritis of shoulder, right: QUALIFIERS: Septic arthritis organism: due to unspecified organism Qualified Code(s): M00.9 - Pyogenic arthritis, unspecified PLAN: Patient seen and examined. No growth on cultures to date. Responding well to medical treatment. ID consult pending tomorrow. Discussed plan of care with hospitalist. Recommend continued antibiotics, likely home with IV antibiotics but will defer to ID. Continue exercises to improve right upper extremity range of motion. I will sign off at this time. Please not hesitate to call if any questions or concerns arise. If clinical condition worsens I am happy to reevaluate the patient. Outpatient follow-up with ID is likely adequate but I would be happy to follow-up with the patient in a week or 2 if necessary.
[2025-03-06] MEDS: HEPARIN/D5w 25,000 UNITS 25,000 UNITS/250 ML IV.SOLN. 17 UNITS CONT INF (12:29)
[2025-03-06 12:45] LABS: International Normalized Ratio 1.7; Prothrombin Time (Protime)PT. 20.5 SECONDS (11.7-14.9)
[2025-03-06 15:02] VITALS: BMI 37.8
[2025-03-06] MEDS: oxyCODONE 5 MG Tablet PO (15:14)
[2025-03-06 16:45] VITALS: BP 111/82; PULSE 109; RESP 18; TEMP 36.3; O2SAT 100
[2025-03-06 22:13] VITALS: BP 106/61; PULSE 106; RESP 20; TEMP 37.1; O2SAT 100
[2025-03-07] VITALS (26 sets, daily range): BP systolic 40–226; BP diastolic 18–92; PULSE 62–105; RESP 14–20; TEMP 36.2–37.3; O2SAT 94–100; BMI 37.8; BMI 38.5
[2025-03-07] MEDS: Morphine 2 MG/ML Syringe 1 MG IV ×3 (01:43→14:06)
[2025-03-07] MEDS: 0.9% Saline Lock 10 ML Syringe IV ×3 (01:46→14:06)
[2025-03-07] MEDS: HEPARIN/D5w 25,000 UNITS 25,000 UNITS/250 ML IV.SOLN. 17 UNITS CONT INF (03:27)
[2025-03-07] MEDS: oxyCODONE 5 MG Tablet PO ×4 (05:02→22:37)
[2025-03-07] MEDS: Midodrine HCl 5 MG Tablet 10 MG PO ×4 (05:02→20:39)
[2025-03-07] MEDS: Levothyroxine 25 MCG TABLET PO (05:05)
[2025-03-07 06:28] LABS: Absolute Lymphocyte Count 0.84 X10^3/uL (0.83-4.51); Absolute Neutrophil Count 4.7 X10^3/uL (2.0-7.7); Basophil# 0.02 X10^3/uL; Basophil% 0.3 % (0-1); Eosinophil# 0.59 X10^3/uL; Eosinophils% 8.2 % (0-5); Hematocrit 23.1 % (40-54); Hemoglobin 7.2 g/dL (13.0-16.5); Lymphocyte # 0.84 X10^3/ul (0.83-4.51); Lymphocyte % 11.7 % (19-41); Mean Corp Hgb Conc 31.2 g/dL (32-36); Mean Corpuscular Hgb 28.6 pg (27.0-32.0); Mean Corpuscular Volume 91.7 fL (80-94); Mean Platelet Vol. 10.2 fl (6.2-12.0); Monocyte# 0.98 X10^3/uL; Monocyte% 13.7 % (0-10); NRBC Flagged by Analyzer 0.3 % (0-5); Neutrophil % 65.5 % (47-70); Platelet Count 208 K/mm3 (150-450); RBC Distribution Width CV 17.9 % (11.6-14.6); RBC Distribution Width SD 59.9 fl (35.1-43.9); Red Blood Count 2.52 M/mm3 (4.6-6.2); White Blood Count 7.2 K/mm3 (4.4-11.0)
[2025-03-07 06:35] LABS: International Normalized Ratio 1.8
[2025-03-07] MEDS: Vancomycin Trough/Random Due 1 LAB MC (06:39)
[2025-03-07 07:19] LABS: Vancomycin, Random Level 16.5 ug/mL (0.0-15.0)
[2025-03-07 07:25] LABS: Partial Thromboplast Time 91.3 Seconds (24.1-36.2)
[2025-03-07 07:33] LABS: Anion Gap 19 (5-15); BUN 45 mg/dL (4-19); BUN/Creat Ratio 3.6 RATIO (10-20); Carbon Dioxide 20.6 mmol/L (21.0-32.0); Chloride 96 mmol/L (98-108); EST Glomerular Filtration Rate 5 (>60); Estimated Creatinine Clearance 10.06 ml/min (50-250); Glucose 115 mg/dL (70-99); Potassium 4.3 mmol/L (3.3-5.1); Sodium Level 136 mmol/L (133-145)
--- NOTE | 2025-03-07 07:37 | PCM.RX.CS ---
Consult Antibiotic Management Pharmacy has been consulted to manage selected antibiotic: Vancomycin Type of Intervention Type of Consult: Follow-up Suspected Infection Suspected Infection: Other (SEPTIC JOINT) Prior Doses of Antibiotics Prior Doses of Antibiotics Received/Current Regimen: Vancomycin 500 mg after HD last dose given 03/04/25 @ 1715 Labs Labs: Sodium 136 mmol/L (133-145) 03/07/25 06:15 Potassium 4.3 mmol/L (3.3-5.1) 03/07/25 06:15 Chloride 96 mmol/L (98-108) L 03/07/25 06:15 Carbon Dioxide 20.6 mmol/L (21.0-32.0) L 03/07/25 06:15 Anion Gap 19 (5-15) H 03/07/25 06:15 BUN 45 mg/dL (4-19) H 03/07/25 06:15 Creatinine 12.40 mg/dL (0.70-1.20) H* 03/07/25 06:15 Est GFR (MDRD) Non-Af 5 (>60) L 03/07/25 06:15 BUN/Creatinine Ratio 3.6 RATIO (10-20) L 03/07/25 06:15 Glucose 115 mg/dL (70-99) H 03/07/25 06:15 Random Vancomycin 16.5 ug/mL (0.0-15.0) H 03/07/25 06:15 Microbiology Microbiology: Microbiology 03/03/25 08:10 Fluid - Synovial (joint) Gram Stain - Final 03/03/25 08:10 Fluid - Synovial (joint) Anaerobic Culture - Preliminary No growth in 48 hours. 03/02/25 19:12 Mucosa - Nose SARS-CoV-2, Influenza & RSV (PCR) - Final Dosing Weight Weight used for dosin kg Estimated Creatinine Clearance Estimated Creatinine Clearance: ESRD ON HD Goal Trough Goal Trough: 15-20 mcg/mL Pharmacy Plan for Drug Dosing Pharmacy Plan for Drug Dosing: Vancomycin random level this AM = 16.5, give 500 mg IV x 1 after HD today, recheck random level prior to HD on friday. Pharmacy Service will continue to monitor and adjust dosing as required. Follow-Up Labs Follow-Up Labs: Trough: Vancomycin Date/Time Labs Ordered Labs to be done on [date and time ordered]: 03/09/25 @ 0600
[2025-03-07] MEDS: PureFlow B 2K Dialysis Soln 1 BAG 6 BAG PF (08:52)
[2025-03-07] MEDS: 0.9% Normal Saline 1,000 ML IV.SOLN. 1000 ML OPERA.SITE (08:53)
--- NOTE | 2025-03-07 10:44 | PN.RENAL_ITS ---
Subjective Subjective Complains of severe right shoulder pain. Seen on dialysis today, significantly restless. Unable to lie still. Breathing is okay. Objective Data Objective Data Vital Signs: Vital Signs Temp Pulse Resp BP Pulse Ox O2 Del Method O2 Flow Rate 99.1 F 98 16 111/81 H 100 Nasal Cannula 2 03/07/25 08:40 03/07/25 10:30 03/07/25 09:30 03/07/25 10:30 03/07/25 09:30 03/07/25 09:30 03/07/25 09:30 Oxygen Flow Rate (L/min) 2 Oxygen Delivery Method Nasal Cannula Weight: 121.9 kg Body Mass Index (BMI) 38.5 Intake & Output: Intake and Output for Last 24 Hours 03/05/25 03/06/25 03/07/25 23:59 23:59 23:59 Intake Total 1724.53 / 1724.53 2120.00 / 2120.00 442.53 / 442.53 Output Total 0 / 0 Balance 1724.53 / 1724.53 2120.00 / 2120.00 442.53 / 442.53 Lab / Micro Data 03/07/25 06:15 03/07/25 06:15 Labs: Laboratory Results - last 24 hr 03/06/25 03:50: PT 20.5 H, INR 1.7 03/07/25 06:15: WBC 7.2, RBC 2.52 L, Hgb 7.2 L, Hct 23.1 L, MCV 91.7, MCH 28.6, MCHC 31.2 L, RDW Std Deviation 59.9 H, RDW Coeff of Lance 17.9 H, Plt Count 208, MPV 10.2, Immature Gran % (Auto) 0.600, Neut % (Auto) 65.5, Lymph % (Auto) 11.7 L, [place] % (Auto) 13.7 H, Eos % (Auto) 8.2 H, Baso % (Auto) 0.3, Absolute Neuts (auto) 4.7, Absolute Lymphs (auto) 0.84, Nucleated RBC % 0.3, PT 21.0 H, INR 1.8, APTT 91.3 H*, Sodium 136, Potassium 4.3, Chloride 96 L, Carbon Dioxide 20.6 L, Anion Gap 19 H, BUN 45 H, Creatinine 12.40 H*, Estim Creat Clear Calc 10.06 L , Est GFR (MDRD) Non-Af 5 L, BUN/Creatinine Ratio 3.6 L, Glucose 115 H, Calcium 8.0, Random Vancomycin 16.5 H Micro: Microbiology 03/03/25 08:10 Fluid - Synovial (joint) Gram Stain - Final 03/03/25 08:10 Fluid - Synovial (joint) Anaerobic Culture - Preliminary No growth in 48 hours. 03/02/25 19:12 Mucosa - Nose SARS-CoV-2, Influenza & RSV (PCR) - Final Physical Exam Narrative Alert awake oriented x 3 no obvious distress s1s2 no murmurs lungs clear abdomen soft no edema Assessment & Plan Assessment/Plan (1) ESRD (end stage renal disease): PLAN: - ESRD on hemodialysis Friday. Patient undergoing hemodialysis today and attempting fluid removal as patient/blood pressure tolerates. Severe right shoulder pain, just received pain medication, fluid pressure is fairly low, do not think we will be able to remove fluid. In fact he might be a little bit positive end of treatment. Potassium levels are acceptable. He wants to sit in the chair, not alert as per hospital protocol during dialysis. We might have to terminate treatment early. Management of shoulder pain as per primary.
[2025-03-07] MEDS: Lidocaine 5% Patch 1 PATCH TOPICAL (11:42)
[2025-03-07] MEDS: Heparin 10,000 UNITS/10 ML Vial IV (12:34)
--- NOTE | 2025-03-07 13:20 | PN_ITS ---
Subjective Subjective Patient seen and examined. He kept complaining of severe pain in his right shoulder. He said it was only relieved by sitting up. I did see patient in the presence of his nurse. He was having dialysis. He said the pain was not relieved by any pain meds. However dialysis nurse was not comfortable with him sitting up in a chair because patient's blood pressure had been running low during dialysis and so was concerned about hypotension further worsening. Patient was to be given an extra dose of midodrine this morning to help with hypotension. He denied any fever or chills and review of systems otherwise negative. Objective Data Objective Data Vital Signs: Vital Signs Temp Pulse Resp BP Pulse Ox O2 Del Method O2 Flow Rate 99.1 F 97 14 120/82 H 99 Nasal Cannula 2 03/07/25 08:40 03/07/25 13:00 03/07/25 13:00 03/07/25 13:00 03/07/25 13:00 03/07/25 13:00 03/07/25 13:00 Oxygen Flow Rate (L/min) 2 Oxygen Delivery Method Nasal Cannula Weight: 268 lb 11.896 oz Body Mass Index (BMI) 38.5 Intake & Output: Intake and Output for Last 24 Hours 03/05/25 03/06/25 03/07/25 23:59 23:59 23:59 Intake Total 1724.53 / 1724.53 2120.00 / 2120.00 442.53 / 442.53 Output Total 0 / 0 Balance 1724.53 / 1724.53 2120.00 / 2120.00 442.53 / 442.53 Lab / Micro Data 03/07/25 06:15 03/07/25 06:15 Labs: Laboratory Results - last 24 hr 03/07/25 06:15: WBC 7.2, RBC 2.52 L, Hgb 7.2 L, Hct 23.1 L, MCV 91.7, MCH 28.6, MCHC 31.2 L, RDW Std Deviation 59.9 H, RDW Coeff of Lance 17.9 H, Plt Count 208, MPV 10.2, Immature Gran % (Auto) 0.600, Neut % (Auto) 65.5, Lymph % (Auto) 11.7 L, [place] % (Auto) 13.7 H, Eos % (Auto) 8.2 H, Baso % (Auto) 0.3, Absolute Neuts (auto) 4.7, Absolute Lymphs (auto) 0.84, Nucleated RBC % 0.3, PT 21.0 H, INR 1.8, APTT 91.3 H*, Sodium 136, Potassium 4.3, Chloride 96 L, Carbon Dioxide 20.6 L, Anion Gap 19 H, BUN 45 H, Creatinine 12.40 H*, Estim Creat Clear Calc 10.06 L , Est GFR (MDRD) Non-Af 5 L, BUN/Creatinine Ratio 3.6 L, Glucose 115 H, Calcium 8.0, Random Vancomycin 16.5 H Micro: Microbiology 03/03/25 08:10 Fluid - Synovial (joint) Gram Stain - Final 03/03/25 08:10 Fluid - Synovial (joint) Body Fluid Culture - Preliminary No growth-Final to follow 03/03/25 08:10 Fluid - Synovial (joint) Anaerobic Culture - Preliminary No growth in 48 hours. 03/02/25 19:12 Mucosa - Nose SARS-CoV-2, Influenza & RSV (PCR) - Final Physical Exam Const alert and oriented x3 Constitutional Narrative: class II obesity, very uncomfortable due to the severe pain. HEENT normocephalic, head/scalp atraumatic and moist oral mucous membranes Eyes PERRL and EOMs intact bilaterally Neck supple Lymph Lymphatic: no lymphedema noted Resp Resp Narrative: mildly diminshed breath sounds bibasally, no wheezes or crackles. On 2L of oxygen by nasal canula Cardio regular rate, regular rhythm, S1 normal heart sound, S2 normal heart sound and no murmurs GI normal to inspection, nondistended, normoactive bowel sounds, soft to palpation, non-tender and non-distended GI Narrative: obese abdomen Extremity Extremity Narrative: permanent chest dialysis catheter in situ. Intact dressing over right shoulder. Has some mild tenderness with palpation over left shoulder joint. Unable to abduct or elevate arm fully without pain. Skin Skin Narrative: as under extremities Neuro no focal motor deficits Motor Exam: general weakness Psych thought process normal Psych Narrative: in moderate distress due to pain Attitude: agitated Activity / Motor Behavior: restless Assessment & Plan Assessment/Plan (1) Septic arthritis of shoulder, right: QUALIFIERS: Septic arthritis organism: due to unspecified organism Qualified Code(s): M00.9 - Pyogenic arthritis, unspecified PLAN: Plan #Septic arthritis of the right shoulder * S/p arthrocentesis concerning for infection. * his surgical risk was immense given his comorbidities so he had had the arthrocentesis done by radiology. * on IV antibiotics * orthopedic surgery on board * PT/OT On board * fall precautions. * lidocaine patch for left shoulder pain * cultures of the synovial fluid are negative so far. * # ESRD: * On hemodialysis Friday. Having dialysis today. management as per nephrology * #Hypotension: * Blood pressure was running low today. * It does run low sometimes during dialysis. On midodrine. * Patient given extra dose of midodrine during dialysis today * #Acute on chronic anemia: * Hemoglobin is 7.2. Monitor closely and transfuse if hemoglobin drops less than 7. * This is likely due to the ESRD. * No evidence of bleeding. * # Mitral valve stenosis: S/p mitral valve replacement. On Coumadin. #Paroxysmal A-fib: on coumadin. monitor INR for goal INR of 2.5-3.5 #Class II obesity: BMI is 38.6. Complicates acute care, expected recovery and prognosis DVT prophylaxis: on coumadin. Charges/Coding Visit Charges Inpatient E&M: 05581 Subs Hosp L2
[2025-03-07] MEDS: Cefepime HCl 2 GM in 0.9% Normal Saline (100mL MB+) 100 ML IV (13:36)
[2025-03-07] MEDS: Cinacalcet HCl 30 MG Tablet 90 MG PO (13:40)
[2025-03-07] MEDS: SEVELAMER CARBONATE 800 MG TABLET 3200 MG PO ×2 (13:40→17:44)
[2025-03-07] MEDS: Aspirin E.C. 81 MG Tablet PO (13:41)
[2025-03-07 14:48] LABS: Partial Thromboplast Time 122.7 Seconds (24.1-36.2)
--- NOTE | 2025-03-07 15:13 | CON.PCM.ID_ITS ---
Assessment & Plan Assessment/Plan (1) Septic arthritis of shoulder, right: QUALIFIERS: Septic arthritis organism: due to unspecified organism Qualified Code(s): M00.9 - Pyogenic arthritis, unspecified PLAN: Suspected septic arthritis, but no fever, no redness, no leukocytosis, and negative cxs from aspiration. Fluid studies were (+) uric acid crystals, so suspect gout as cause. Will stop abx for now, recommend checking uric acid level and treat for gout. will follow, thank you, dSrinivasanw primary team HPI Consult Data Date of Consult: 03/07/25 HPI Narrative Reason for Consultation: septic arthritis HPI Narrative: REJI SPAIN, is a 45 M with ESRD, mechanical heart valve, presented 03/02 with sudden onset R shoulder pain. Denies any inciting event. No fever, no redness, no swelling, no drainage. No h/o gout. Does not drink etoh. Came to ED, aspiration done, started on vanc/zosyn. Feeling a little better. Full ROS performed and neg except as noted above. 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 Mitral valve annular calcification Central retinal artery occlusion of left eye (10/09/20) History of non-ST elevation myocardial infarction (NSTEMI) (11/08/19) 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 History of bacterial endocarditis Mechanical complication of arteriovenous fistula surgically created Obstructive sleep apnea Non compliance w medication regimen Nonrheumatic mitral valve stenosis with insufficiency 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) Atrial flutter with rapid ventricular response (07/2020) Essential (primary) hypertension History of venous thromboembolism History of pulmonary embolus (PE) Bilateral carotid artery stenosis Paroxysmal atrial fibrillation (06/10/20) Unspecified symptoms and signs involving cognitive functions and awareness (04/05/20) 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) Expressive aphasia (04/05/20) ESRD on hemodialysis Dialysis patient Chronic kidney disease-mineral and bone disorder Chronic pelvic pain in male Pelvic mass Hematuria History of blood clots Hearing loss 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 due to renal insufficiency Morbidly obese Home Medications ?Medication ?Instructions ?Recorded ?Last Taken ?Type BP monitor #1 ea 07/17/21 Unknown Rx aspirin 81 mg tablet,delayed 81 mg PO DAILY heart heal th 10/29/21 02/24/25 History release (Adult Aspirin Regimen) sucroferric oxyhydroxide 500 mg 1,500 mg PO TIDCM phos phate binder 11/11/23 03/01/25 History chewable tablet (Velphoro) warfarin 5 mg tablet 5 mg PO DAILY blood thinner #90 05/07/24 03/01/25 Rx tabs cinacalcet 60 mg tablet 90 mg PO DAILY hormones 10/2203/02/25 History levothyroxine 25 mcg tablet 25 mcg PO DAILY disorder o f 07/30/24 03/02/25 History thyroid gland vitamin B complex-vitamin C-folic 1 tab PO DAILY vitam in 07/30/24 02/21/25 History acid 0.8 mg tablet (Juju-Tashi) midodrine 10 mg tablet 10 mg PO TID blood pressure #90 03/01/25 02/28/25 Rx tabs oxycodone 5 mg tablet 5 mg PO BID PRN pain 5 03/01/25 History Allergy/AdvReac Type Severity Reaction Status Date / Time trazodone Allergy Severe Jittery/Sha Verified 03/03/25 01:34 ky gabapentin Allergy Other Verified 03/03/25 01:34 Family History Other Adopted Family History adopted Surgical History Hx of mitral valve replacement with mechanical valve S/P PICC central line placement (06/15/24) History of angioplasty of peripheral vessel (08/28/21) History of tooth extraction, class IV edentulism (09/11/21) History of right and left heart catheterization (08/16/21) Mechanical complication of dialysis catheter History of herniorrhaphy Status post creation of arteriovenous fistula History of cardioversion (12/02/18) History of repair of congenital cleft palate History of left heart catheterization (09/17/18) history of cather replacement Social History household members: none Smoking Status: Never smoker alcohol intake: never substance use type: marijuana what type of physical activity do you participate in: none Physical Exam Const alert, oriented x3 and no apparent distress General Appearance: cooperative HEENT normocephalic and head/scalp atraumatic Eyes PERRL and EOMs intact bilaterally Neck supple and No nodes Resp normal air movement and clear to auscultation bilaterally Cardio regular rate and regular rhythm Heart Sounds: click GI soft to palpation, non-tender and non-distended Extremity General Extremity: Negative for edema Skin no rashes or lesions noted Neuro CN's II-XII intact bilaterally Lab / Micro Data Attestation: I reviewed the patient's lab results. 03/07/25 06:15 03/07/25 06:15 Labs: Laboratory Results - last 24 hr 03/07/25 06:15: WBC 7.2, RBC 2.52 L, Hgb 7.2 L, Hct 23.1 L, MCV 91.7, MCH 28.6, MCHC 31.2 L, RDW Std Deviation 59.9 H, RDW Coeff of Lance 17.9 H, Plt Count 208, MPV 10.2, Immature Gran % (Auto) 0.600, Neut % (Auto) 65.5, Lymph % (Auto) 11.7 L, [place] % (Auto) 13.7 H, Eos % (Auto) 8.2 H, Baso % (Auto) 0.3, Absolute Neuts (auto) 4.7, Absolute Lymphs (auto) 0.84, Nucleated RBC % 0.3, PT 21.0 H, INR 1.8, APTT 91.3 H*, Sodium 136, Potassium 4.3, Chloride 96 L, Carbon Dioxide 20.6 L, Anion Gap 19 H, BUN 45 H, Creatinine 12.40 H*, Estim Creat Clear Calc 10.06 L , Est GFR (MDRD) Non-Af 5 L, BUN/Creatinine Ratio 3.6 L, Glucose 115 H, Calcium 8.0, Random Vancomycin 16.5 H 03/07/25 13:40: APTT 122.7 H* Micro: Microbiology 03/03/25 08:10 Fluid - Synovial (joint) Gram Stain - Final 03/03/25 08:10 Fluid - Synovial (joint) Body Fluid Culture - Preliminary No growth-Final to follow 03/03/25 08:10 Fluid - Synovial (joint) Anaerobic Culture - Preliminary No growth in 48 hours.
[2025-03-07] MEDS: HEPARIN/D5w 25,000 UNITS 25,000 UNITS/250 ML IV.SOLN. 13 UNITS CONT INF (20:38)
[2025-03-07] MEDS: Acetaminophen 325 MG Tablet 650 MG PO (20:40)
[2025-03-07 23:08] LABS: Partial Thromboplast Time 62.7 Seconds (24.1-36.2)
[2025-03-08 02:27] VITALS: BMI 38.5
[2025-03-08 03:00] VITALS: PULSE 97
[2025-03-08 03:19] VITALS: BP 128/81; PULSE 92; RESP 16; TEMP 36.9; O2SAT 100
[2025-03-08] MEDS: Levothyroxine 25 MCG TABLET PO (06:00)
[2025-03-08] MEDS: Acetaminophen 325 MG Tablet 650 MG PO (06:00)
[2025-03-08] MEDS: Midodrine HCl 5 MG Tablet 10 MG PO ×3 (06:00→23:14)
[2025-03-08] MEDS: oxyCODONE 5 MG Tablet PO (06:00)
[2025-03-08 08:18] LABS: Absolute Lymphocyte Count 0.81 X10^3/uL (0.83-4.51); Absolute Neutrophil Count 4.7 X10^3/uL (2.0-7.7); Basophil# 0.03 X10^3/uL; Basophil% 0.4 % (0-1); Eosinophils% 8.2 % (0-5); Hematocrit 23.7 % (40-54); Hemoglobin 7.3 g/dL (13.0-16.5); Lymphocyte # 0.81 X10^3/ul (0.83-4.51); Mean Corp Hgb Conc 30.8 g/dL (32-36); Mean Corpuscular Hgb 28.3 pg (27.0-32.0); Mean Corpuscular Volume 91.9 fL (80-94); Monocyte# 1.11 X10^3/uL; Monocyte% 15.1 % (0-10); NRBC Flagged by Analyzer 0 % (0-5); Neutrophil # 4.73 X10^3/uL (2.7-7.7); Neutrophil % 64.5 % (47-70); Platelet Count 244 K/mm3 (150-450); RBC Distribution Width CV 17.9 % (11.6-14.6); RBC Distribution Width SD 60.6 fl (35.1-43.9); Red Blood Count 2.58 M/mm3 (4.6-6.2); White Blood Count 7.3 K/mm3 (4.4-11.0)
[2025-03-08 08:43] LABS: International Normalized Ratio 1.9; Prothrombin Time (Protime)PT. 22.2 SECONDS (11.7-14.9)
[2025-03-08 08:51] LABS: Anion Gap 15 (5-15); BUN 37 mg/dL (4-19); BUN/Creat Ratio 3.9 RATIO (10-20); Calcium,Total 8.6 mg/dL (7.6-11.0); Carbon Dioxide 23.2 mmol/L (21.0-32.0); Chloride 98 mmol/L (98-108); Creatinine, Serum 9.28 mg/dL (0.70-1.20); EST Glomerular Filtration Rate 7 (>60); Estimated Creatinine Clearance 13.44 ml/min (50-250); Glucose 101 mg/dL (70-99); Potassium 4.5 mmol/L (3.3-5.1); Sodium Level 136 mmol/L (133-145)
[2025-03-08] MEDS: Heparin Injection (Vial) 5,000 UNIT/ML VIAL IV (08:56)
[2025-03-08] MEDS: Aspirin E.C. 81 MG Tablet PO (09:00)
[2025-03-08] MEDS: SEVELAMER CARBONATE 800 MG TABLET 3200 MG PO ×3 (09:00→17:56)
[2025-03-08] MEDS: Cinacalcet HCl 30 MG Tablet 90 MG PO (09:00)
[2025-03-08] MEDS: Lidocaine 5% Patch 1 PATCH TOPICAL (09:08)
[2025-03-08 09:16] VITALS: BP 149/58; PULSE 92; RESP 18; TEMP 36.8; O2SAT 100
--- NOTE | 2025-03-08 10:08 | PCM.PN.ID ---
Physical Exam Narrative Feeling better, arm less sore, no fever, no n/v/d. Const alert and no apparent distress Resp normal air movement and clear to auscultation bilaterally Cardio regular rate and regular rhythm GI soft to palpation, non-tender and non-distended Skin no rashes or lesions noted ID ID: Route of nutrition/ use of supplements: [] Nutritional Intake: [] IV Site: [] Call Catheter: [] Assessment & Plan Assessment/Plan (1) Septic arthritis of shoulder, right: QUALIFIERS: Septic arthritis organism: due to unspecified organism Qualified Code(s): M00.9 - Pyogenic arthritis, unspecified PLAN: Suspected septic arthritis, but no fever, no redness, no leukocytosis, and negative cxs from aspiration. Fluid studies were (+) uric acid crystals, so suspect gout as cause. Off abx, recommend checking uric acid level and treat for gout. will sign off
--- NOTE | 2025-03-08 10:08 | CASEMGMT ---
RACHEL CM into pt room to discuss DC plan. Pt not currently active with a PCP. Pt would like to obtain a script for OP therapy, he states he will call and schedule appointment once DC'd from hospital. Pt states he would like information about PCP's in the area as well as hospital van transportation info for therapy visits.
--- NOTE | 2025-03-08 12:24 | PCM.PN.REN ---
Subjective Subjective no new events Objective Data Objective Data Vital Signs: Vital Signs Temp Pulse Resp BP Pulse Ox O2 Del Method O2 Flow Rate 98.2 F 92 18 149/58 H 100 Room Air 2 03/08/25 09:16 03/08/25 09:16 03/08/25 09:16 03/08/25 09:16 03/08/25 09:16 03/08/25 09:16 03/07/25 16:17 Oxygen Flow Rate (L/min) 2 Oxygen Delivery Method Room Air Weight: 121.9 kg Body Mass Index (BMI) 38.5 Intake & Output: Intake and Output for Last 24 Hours 03/06/25 03/07/25 03/08/25 23:59 23:59 23:59 Intake Total 2120.00 / 2120.00 1320.00 / 1320.00 160.77 / 160.77 Output Total 510 / 510 Balance 2120.00 / 2120.00 810.00 / 810.00 160.77 / 160.77 Lab / Micro Data 03/08/25 07:50 03/08/25 07:50 Labs: Laboratory Results - last 24 hr 03/07/25 13:40: APTT 122.7 H* 03/07/25 22:45: APTT 62.7 H 03/08/25 07:50: WBC 7.3, RBC 2.58 L, Hgb 7.3 L, Hct 23.7 L, MCV 91.9, MCH 28.3, MCHC 30.8 L, RDW Std Deviation 60.6 H, RDW Coeff of Lance 17.9 H, Plt Count 244, MPV 11.0, Immature Gran % (Auto) 0.800, Neut % (Auto) 64.5, Lymph % (Auto) 11.0 L, [place] % (Auto) 15.1 H, Eos % (Auto) 8.2 H, Baso % (Auto) 0.4, Absolute Neuts (auto) 4.7, Absolute Lymphs (auto) 0.81 L, Nucleated RBC % 0, PT 22.2 H, INR 1.9, APTT 54.0 H, Sodium 136, Potassium 4.5, Chloride 98, Carbon Dioxide 23.2, Anion Gap 15, BUN 37 H, Creatinine 9.28 H*, Estim Creat Clear Calc 13.44 L, Est GFR (MDRD) Non-Af 7 L, BUN/Creatinine Ratio 3.9 L, Glucose 101 H, Calcium 8.6 Micro: Microbiology 03/02/25 19:09 Blood Culture (Wb) - Right Hand Blood Culture - Final No growth in 5 days. 03/02/25 19:12 Blood Culture (Wb) - Right Hand Blood Culture - Final No growth in 5 days. 03/03/25 08:10 Fluid - Synovial (joint) Gram Stain - Final 03/03/25 08:10 Fluid - Synovial (joint) Body Fluid Culture - Preliminary No growth-Final to follow 03/03/25 08:10 Fluid - Synovial (joint) Anaerobic Culture - Preliminary No growth in 48 hours. 03/02/25 19:12 Mucosa - Nose SARS-CoV-2, Influenza & RSV (PCR) - Final Physical Exam Narrative Alert awake oriented x 3 no obvious distress s1s2 no murmurs lungs clear abdomen soft no edema Assessment & Plan Assessment/Plan (1) ESRD (end stage renal disease): PLAN: - ESRD on hemodialysis Friday. HD MWF schedule
--- NOTE | 2025-03-08 12:58 | PN_ITS ---
Subjective Subjective Patient seen and examined. He was seen with his nurse by his bedside. Patient stated the pain had improved in his right shoulder. I informed patient that ID did not think he was septic arthritis and thought it was more of gout so antibiotics have been discontinued. Patient states he is unable to get up comfortably to ambulate because of the right shoulder pain. However when he gets up he is able to ambulate well. Will start patient on steroids today for the gout. Review of systems otherwise negative. Objective Data Objective Data Vital Signs: Vital Signs Temp Pulse Resp BP Pulse Ox O2 Del Method O2 Flow Rate 98.2 F 92 18 149/58 H 100 Room Air 2 03/08/25 09:16 03/08/25 09:16 03/08/25 09:16 03/08/25 09:16 03/08/25 09:16 03/08/25 09:16 03/07/25 16:17 Oxygen Flow Rate (L/min) 2 Oxygen Delivery Method Room Air Weight: 268 lb 11.896 oz Body Mass Index (BMI) 38.5 Intake & Output: Intake and Output for Last 24 Hours 03/06/25 03/07/25 03/08/25 23:59 23:59 23:59 Intake Total 2120.00 / 2120.00 1320.00 / 1320.00 160.77 / 160.77 Output Total 510 / 510 Balance 2120.00 / 2120.00 810.00 / 810.00 160.77 / 160.77 Lab / Micro Data 03/08/25 07:50 03/08/25 07:50 Labs: Laboratory Results - last 24 hr 03/07/25 13:40: APTT 122.7 H* 03/07/25 22:45: APTT 62.7 H 03/08/25 07:50: WBC 7.3, RBC 2.58 L, Hgb 7.3 L, Hct 23.7 L, MCV 91.9, MCH 28.3, MCHC 30.8 L, RDW Std Deviation 60.6 H, RDW Coeff of Lance 17.9 H, Plt Count 244, MPV 11.0, Immature Gran % (Auto) 0.800, Neut % (Auto) 64.5, Lymph % (Auto) 11.0 L, [place] % (Auto) 15.1 H, Eos % (Auto) 8.2 H, Baso % (Auto) 0.4, Absolute Neuts (auto) 4.7, Absolute Lymphs (auto) 0.81 L, Nucleated RBC % 0, PT 22.2 H, INR 1.9, APTT 54.0 H, Sodium 136, Potassium 4.5, Chloride 98, Carbon Dioxide 23.2, Anion Gap 15, BUN 37 H, Creatinine 9.28 H*, Estim Creat Clear Calc 13.44 L, Est GFR (MDRD) Non-Af 7 L, BUN/Creatinine Ratio 3.9 L, Glucose 101 H, Calcium 8.6 Micro: Microbiology 03/03/25 08:10 Fluid - Synovial (joint) Gram Stain - Final 03/03/25 08:10 Fluid - Synovial (joint) Body Fluid Culture - Preliminary No growth-Final to follow 03/03/25 08:10 Fluid - Synovial (joint) Anaerobic Culture - Final No growth in 5 days. 03/02/25 19:09 Blood Culture (Wb) - Right Hand Blood Culture - Final No growth in 5 days. 03/02/25 19:12 Blood Culture (Wb) - Right Hand Blood Culture - Final No growth in 5 days. 03/02/25 19:12 Mucosa - Nose SARS-CoV-2, Influenza & RSV (PCR) - Final Physical Exam Const alert and oriented x3 Constitutional Narrative: class II obesity, more comfortable today as pain has improved. HEENT normocephalic, head/scalp atraumatic and moist oral mucous membranes Eyes PERRL and EOMs intact bilaterally Neck supple and no JVD Lymph Lymphatic: no lymphedema noted Resp Resp Narrative: mildly diminshed breath sounds bibasally, no wheezes or crackles. On 2L of oxygen by nasal canula Cardio regular rate, regular rhythm, S1 normal heart sound, S2 normal heart sound and no murmurs GI normal to inspection, nondistended, normoactive bowel sounds, soft to palpation, non-tender and non-distended GI Narrative: obese abdomen Extremity normal capillary refill, no clubbing, cyanosis or edema and no calf tenderness Extremity Narrative: permanent chest dialysis catheter in situ. Intact dressing over right shoulder. Has minimal tenderness with palpation over left shoulder joint. Unable to abduct or elevate arm fully without pain. Skin Skin Narrative: as under extremities, intact dressings over upper back from chronic wounds. Neuro CN's II-XII intact bilaterally, no focal motor deficits and no sensory deficits noted Neuro Narrative: right arm weakness, minimal pain with palpation. Able to partially abduct and elevate his RUE Motor Exam: general weakness Psych thought process normal and cooperative Appearance: appropriate Assessment & Plan Assessment/Plan (1) Septic arthritis of shoulder, right: QUALIFIERS: Septic arthritis organism: due to unspecified organism Qualified Code(s): M00.9 - Pyogenic arthritis, unspecified PLAN: Plan #Septic arthritis of the right shoulder * S/p arthrocentesis concerning for infection. * his surgical risk was immense given his comorbidities so he had had the arthrocentesis done by radiology. * ID reviewed patient and thinks it is less likely septic arthritis and more of gout. * orthopedic surgery on board * PT/OT On board * fall precautions. * lidocaine patch for left shoulder pain * cultures of the synovial fluid are negative so far. * Will start patient on IV Solu-Medrol. Cannot give him colchicine due to his ESRD. Antibiotics discontinued per ID. * # ESRD: * On hemodialysis Friday. management as per nephrology * #Hypotension: * Has improved * It does run low sometimes during dialysis. On midodrine. * #Acute on chronic anemia: * Hemoglobin is 7.3. Monitor closely and transfuse if hemoglobin drops less than 7. * This is likely due to the ESRD. * No evidence of bleeding. * # Mitral valve stenosis: S/p mitral valve replacement. On Coumadin. #Paroxysmal A-fib: on coumadin. monitor INR for goal INR of 2.5-3.5. INR today is 1.9. #Class II obesity: BMI is 38.6. Complicates acute care, expected recovery and prognosis DVT prophylaxis: on coumadin. Charges/Coding Visit Charges Inpatient E&M: 58561 Subs Hosp L2
[2025-03-08] MEDS: 0.9% Saline Lock 10 ML Syringe IV ×3 (13:16→23:14)
[2025-03-08 15:04] VITALS: BMI 38.5
[2025-03-08 15:08] VITALS: BP 108/87; PULSE 97; RESP 18; TEMP 36.8; O2SAT 98
[2025-03-08] MEDS: Morphine 2 MG/ML Syringe 1 MG IV (15:18)
[2025-03-08 19:00] VITALS: PULSE 86
[2025-03-08 23:05] VITALS: BP 154/86; PULSE 97; RESP 16; TEMP 36.7; O2SAT 100
[2025-03-09] VITALS (20 sets, daily range): BP systolic 92–236; BP diastolic 65–94; PULSE 69–92; RESP 12–17; TEMP 36.4–37.1; O2SAT 96–100; BMI 38.7; BMI 37.9
[2025-03-09] MEDS: 0.9% Saline Lock 10 ML Syringe IV ×3 (06:28→15:18)
[2025-03-09] MEDS: Levothyroxine 25 MCG TABLET PO (06:29)
[2025-03-09] MEDS: Midodrine HCl 5 MG Tablet 10 MG PO ×3 (06:29→23:28)
[2025-03-09 07:09] LABS: Absolute Lymphocyte Count 0.37 X10^3/uL (0.83-4.51); Absolute Neutrophil Count 7.5 X10^3/uL (2.0-7.7); Basophil# 0.01 X10^3/uL; Basophil% 0.1 % (0-1); Hematocrit 25.6 % (40-54); Hemoglobin 7.8 g/dL (13.0-16.5); Lymphocyte # 0.37 X10^3/ul (0.83-4.51); Lymphocyte % 4.4 % (19-41); Mean Corp Hgb Conc 30.5 g/dL (32-36); Mean Corpuscular Hgb 28.3 pg (27.0-32.0); Mean Corpuscular Volume 92.8 fL (80-94); Mean Platelet Vol. 10.6 fl (6.2-12.0); Monocyte# 0.48 X10^3/uL; Monocyte% 5.7 % (0-10); NRBC Flagged by Analyzer 0 % (0-5); Neutrophil # 7.51 X10^3/uL (2.7-7.7); POSITIVE DIFFERENTIAL YES; Platelet Count 252 K/mm3 (150-450); RBC Distribution Width CV 17.8 % (11.6-14.6); RBC Distribution Width SD 60.6 fl (35.1-43.9); Red Blood Count 2.76 M/mm3 (4.6-6.2); White Blood Count 8.4 K/mm3 (4.4-11.0)
[2025-03-09] MEDS: Lidocaine 5% Patch 1 PATCH TOPICAL (07:40)
[2025-03-09] MEDS: Aspirin E.C. 81 MG Tablet PO (07:42)
[2025-03-09] MEDS: Cinacalcet HCl 30 MG Tablet 90 MG PO (07:42)
[2025-03-09] MEDS: SEVELAMER CARBONATE 800 MG TABLET 3200 MG PO ×3 (07:42→16:59)
[2025-03-09 07:56] LABS: Prothrombin Time (Protime)PT. 23.3 SECONDS (11.7-14.9)
[2025-03-09 08:21] LABS: Anion Gap 18 (5-15); BUN 53 mg/dL (4-19); BUN/Creat Ratio 4.9 RATIO (10-20); Calcium,Total 8.4 mg/dL (7.6-11.0); Chloride 97 mmol/L (98-108); EST Glomerular Filtration Rate 6 (>60); Estimated Creatinine Clearance 11.68 ml/min (50-250); Glucose 119 mg/dL (70-99); Potassium 5.2 mmol/L (3.3-5.1); Sodium Level 134 mmol/L (133-145)
[2025-03-09] MEDS: 0.9% Normal Saline 1,000 ML IV.SOLN. 1000 ML OPERA.SITE (09:00)
[2025-03-09] MEDS: Heparin 10,000 UNITS/10 ML Vial IV (09:00)
[2025-03-09] MEDS: PureFlow B 2K Dialysis Soln 1 BAG 6 BAG PF (09:00)
--- NOTE | 2025-03-09 09:27 | WOUNDNOTE ---
Pt currently getting dialysis. dressing changes are every other day and were changed by this nurse yesterday.
--- NOTE | 2025-03-09 11:30 | CASEMGMT ---
RN CM delivered information to pt about hospital van, PCP list and information about [facility].
--- NOTE | 2025-03-09 12:13 | PN.RENAL_ITS ---
Subjective Subjective seen on HD today Objective Data Objective Data Vital Signs: Vital Signs Temp Pulse Resp BP Pulse Ox O2 Del Method O2 Flow Rate 98.8 F 74 16 105/78 96 Room Air 2 03/09/25 09:30 03/09/25 12:00 03/09/25 09:30 03/09/25 12:00 03/09/25 09:30 03/09/25 09:30 03/07/25 16:17 Oxygen Flow Rate (L/min) 2 Oxygen Delivery Method Room Air Weight: 122.5 kg Body Mass Index (BMI) 38.7 Intake & Output: Intake and Output for Last 24 Hours 03/07/25 03/08/25 03/09/25 23:59 23:59 23:59 Intake Total 1320.00 / 1320.00 942.37 / 942.37 Output Total 510 / 510 Balance 810.00 / 810.00 942.37 / 942.37 Lab / Micro Data 03/09/25 06:55 03/09/25 06:55 Labs: Laboratory Results - last 24 hr 03/09/25 06:55: WBC 8.4, RBC 2.76 L, Hgb 7.8 L, Hct 25.6 L, MCV 92.8, MCH 28.3, MCHC 30.5 L, RDW Std Deviation 60.6 H, RDW Coeff of Lance 17.8 H, Plt Count 252, MPV 10.6, Immature Gran % (Auto) 0.800, Neut % (Auto) 89.0 H, Lymph % (Auto) 4.4 L, [place] % (Auto) 5.7, Eos % (Auto) 0.0, Baso % (Auto) 0.1, Absolute Neuts (auto) 7.5, Absolute Lymphs (auto) 0.37 L, Nucleated RBC % 0, PT 23.3 H, INR 2.0, Sodium 134, Potassium 5.2 H, Chloride 97 L, Carbon Dioxide 19.0 L, Anion Gap 18 H, BUN 53 H, Creatinine 10.70 H*, Estim Creat Clear Calc 11.68 L, Est GFR (MDRD) Non-Af 6 L, BUN/Creatinine Ratio 4.9 L, Glucose 119 H, Calcium 8.4 Micro: Microbiology 03/03/25 08:10 Fluid - Synovial (joint) Gram Stain - Final 03/03/25 08:10 Fluid - Synovial (joint) Body Fluid Culture - Final No growth aerobically. 03/03/25 08:10 Fluid - Synovial (joint) Anaerobic Culture - Final No growth in 5 days. 03/02/25 19:09 Blood Culture (Wb) - Right Hand Blood Culture - Final No growth in 5 days. 03/02/25 19:12 Blood Culture (Wb) - Right Hand Blood Culture - Final No growth in 5 days. 03/02/25 19:12 Mucosa - Nose SARS-CoV-2, Influenza & RSV (PCR) - Final Physical Exam Narrative Alert awake oriented x 3 no obvious distress s1s2 no murmurs lungs clear abdomen soft no edema Assessment & Plan Assessment/Plan (1) ESRD (end stage renal disease): PLAN: - ESRD on hemodialysis Friday. HD today. seen on HD. continues to have lowish BP limiting volume removal. ? related to pain meds. - right shoulder pain. ID note reviewed. somewhat better
--- NOTE | 2025-03-09 13:14 | PN_ITS ---
Subjective Subjective Patient seen and examined. He states his right shoulder pain is much better today and restarted about 4-5 out of 10. She had no other complaints and review of systems otherwise negative. Patient unwilling to leave today and states he wants to stay 1 more day to feel better optimized and leave tomorrow. Review of systems otherwise negative. Objective Data Objective Data Vital Signs: Vital Signs Temp Pulse Resp BP Pulse Ox O2 Del Method O2 Flow Rate 98.1 F 74 16 122/90 H 100 Room Air 2 03/09/25 13:00 03/09/25 13:00 03/09/25 13:00 03/09/25 13:00 03/09/25 13:00 03/09/25 13:00 03/07/25 16:17 Oxygen Flow Rate (L/min) 2 Oxygen Delivery Method Room Air Weight: 264 lb 8.875 oz Body Mass Index (BMI) 37.9 Intake & Output: Intake and Output for Last 24 Hours 03/07/25 03/08/25 03/09/25 23:59 23:59 23:59 Intake Total 1320.00 / 1320.00 942.37 / 942.37 100 / 100 Output Total 510 / 510 2570 / 2570 Balance 810.00 / 810.00 942.37 / 942.37 -2470 / -2470 Lab / Micro Data 03/09/25 06:55 03/09/25 06:55 Labs: Laboratory Results - last 24 hr 03/09/25 06:55: WBC 8.4, RBC 2.76 L, Hgb 7.8 L, Hct 25.6 L, MCV 92.8, MCH 28.3, MCHC 30.5 L, RDW Std Deviation 60.6 H, RDW Coeff of Ln[place] 17.8 H, Plt Count 252, MPV 10.6, Immature Gran % (Auto) 0.800, Neut % (Auto) 89.0 H, Lymph % (Auto) 4.4 L, [place] % (Auto) 5.7, Eos % (Auto) 0.0, Baso % (Auto) 0.1, Absolute Neuts (auto) 7.5, Absolute Lymphs (auto) 0.37 L, Nucleated RBC % 0, PT 23.3 H, INR 2.0, Sodium 134, Potassium 5.2 H, Chloride 97 L, Carbon Dioxide 19.0 L, Anion Gap 18 H, BUN 53 H, Creatinine 10.70 H*, Estim Creat Clear Calc 11.68 L, Est GFR (MDRD) Non-Af 6 L, BUN/Creatinine Ratio 4.9 L, Glucose 119 H, Calcium 8.4 Micro: Microbiology 03/03/25 08:10 Fluid - Synovial (joint) Gram Stain - Final 03/03/25 08:10 Fluid - Synovial (joint) Body Fluid Culture - Final No growth aerobically. 03/03/25 08:10 Fluid - Synovial (joint) Anaerobic Culture - Final No growth in 5 days. 03/02/25 19:09 Blood Culture (Wb) - Right Hand Blood Culture - Final No growth in 5 days. 03/02/25 19:12 Blood Culture (Wb) - Right Hand Blood Culture - Final No growth in 5 days. 03/02/25 19:12 Mucosa - Nose SARS-CoV-2, Influenza & RSV (PCR) - Final Physical Exam Const alert and oriented x3 Constitutional Narrative: class II obesity, HEENT normocephalic, head/scalp atraumatic and moist oral mucous membranes Eyes PERRL and EOMs intact bilaterally Neck supple and no JVD Lymph Lymphatic: no lymphedema noted Resp Resp Narrative: mildly diminshed breath sounds bibasally, no wheezes or crackles. On room air Cardio regular rate, regular rhythm, S1 normal heart sound, S2 normal heart sound and no murmurs GI normal to inspection, nondistended, normoactive bowel sounds, soft to palpation, non-tender and non-distended GI Narrative: obese abdomen Extremity normal capillary refill, no clubbing, cyanosis or edema and no calf tenderness Extremity Narrative: permanent chest dialysis catheter in situ. Intact dressing over right shoulder. tenderness over right shoulder has improved markedly. General Extremity: no tenderness to palpation of joints or extremities Skin Skin Narrative: as under extremities, intact dressings over upper back from chronic wounds. Neuro CN's II-XII intact bilaterally, no focal motor deficits and no sensory deficits noted Neuro Narrative: right arm weakness, has improved Motor Exam: general weakness Psych thought process normal and cooperative Psych Narrative: in moderate distress due to pain Appearance: appropriate Attitude: agitated Activity / Motor Behavior: restless Assessment & Plan Assessment/Plan (1) Septic arthritis of shoulder, right: QUALIFIERS: Septic arthritis organism: due to unspecified organism Qualified Code(s): M00.9 - Pyogenic arthritis, unspecified PLAN: Plan #GOut flare up of the right shoulder * S/p arthrocentesis concerning for infection. * his surgical risk was immense given his comorbidities so he had had the arthrocentesis done by radiology. * ID reviewed patient and thinks it is less likely septic arthritis and more of gout. * orthopedic surgery on board * PT/OT On board * fall precautions. * lidocaine patch for left shoulder pain * cultures of the synovial fluid are negative so far. * on IV solumedrol. Will switch to PO prednisone today. * * * # ESRD: * On hemodialysis Friday. management as per nephrology * #Hypotension: * Has improved * It does run low sometimes during dialysis. On midodrine. * #Acute on chronic anemia: * Hemoglobin is 7.8 today. Monitor closely and transfuse if hemoglobin drops less than 7. * This is likely due to the ESRD. * No evidence of bleeding. * # Mitral valve stenosis: S/p mitral valve replacement. On Coumadin. #Paroxysmal A-fib: on coumadin. monitor INR for goal INR of 2.5-3.5. INR today is 2 #Class II obesity: BMI is 38.6. Complicates acute care, expected recovery and prognosis DVT prophylaxis: on coumadin. Disposition: Discharge tomorrow. Patient refused discharge today wants to stay 1 more day. Charges/Coding Visit Charges Inpatient E&M: 56671 Subs Hosp L2
--- NOTE | 2025-03-09 15:16 | CASEMGMT ---
RACHEL PARNELL received call from [employer], wanting to know if Pt will be at dialysis Friday. informed them Pt likely DC tomorrow and plan to have pt there on Friday for dialysis appointment.
[2025-03-09] MEDS: Morphine 2 MG/ML Syringe 1 MG IV ×2 (15:18→23:50)
--- NOTE | 2025-03-09 15:46 | CHAPLAIN ---
Type of Pastoral Visit ___ Initial Visit _x__ Follow-up Visit ___ On-call Visit ___ General Patient Visit ___ Spiritual Assessment ___ Family Conference ___ Bereavement ___ Rapid Response ___ Code Blue ___ Other (describe below) Pastoral Care Referral From _x__ Patient ___ Family ___ Nurse ___ Physician ___ Project Geologist ___ Clinic Clerk _x__ Other (describe below) Sacrament/Intervention _x__ Active listening ___ Anointing ___ Christianity ___ Bereavement ___ Communion _x__ Layla exploration ___ _x__ Life review _x__ Prayer ___ Reconciliation ___ Sacrament of Sick _x__ Supportive presence ___ Wedding ___ Other (describe below) Pastoral Comments request made by staff for this airfield manager to see this patient; pt had become emotional after his time with OT/PT and due to inability to walk far; in sitting with the patient he is very expressive of his frustration at not seeing improvement, having to be in the hospital so often, at being absent from his family, and unable to be protective of his son who got bullied today; pt refers to his layla and how he had a prayer breakthrough early this morning, but now feeling defeated and faithless; listened, offered reminders of biblical characters who also suffered, being present and caring, reflection on life and how it comes at all people; pt does pause and say that he is hearing this and knowing that truth is spoken; pt has goals that he wants to accomplish but has frustrations due to his health problems; pt acknowledges the loss of his own father at age 12 and how he wants to be available to his youngest who is now 10; pt welcomes prayer and presence
[2025-03-09] MEDS: Acetaminophen 325 MG Tablet 650 MG PO (19:56)
[2025-03-09] MEDS: oxyCODONE 5 MG Tablet PO (19:57)
[2025-03-09] MEDS: MELATONIN 3 MG TABLET PO (23:50)
[2025-03-10] VITALS (7 sets, daily range): BP systolic 98–159; BP diastolic 51–86; PULSE 72–93; RESP 16–18; TEMP 36.4–36.9; O2SAT 99–100; BMI 37.9
[2025-03-10] MEDS: Levothyroxine 25 MCG TABLET PO (05:17)
[2025-03-10] MEDS: Midodrine HCl 5 MG Tablet 10 MG PO ×3 (05:17→22:01)
[2025-03-10 07:18] LABS: Absolute Lymphocyte Count 0.36 X10^3/uL (0.83-4.51); Absolute Neutrophil Count 8.7 X10^3/uL (2.0-7.7); Hematocrit 26.2 % (40-54); Hemoglobin 7.9 g/dL (13.0-16.5); Lymphocyte # 0.36 X10^3/ul (0.83-4.51); Lymphocyte % 3.6 % (19-41); Mean Corp Hgb Conc 30.2 g/dL (32-36); Mean Corpuscular Hgb 27.8 pg (27.0-32.0); Mean Corpuscular Volume 92.3 fL (80-94); Mean Platelet Vol. 10.7 fl (6.2-12.0); Monocyte% 8.9 % (0-10); NRBC Flagged by Analyzer 0 % (0-5); Neutrophil # 8.72 X10^3/uL (2.7-7.7); Neutrophil % 86.2 % (47-70); POSITIVE DIFFERENTIAL YES; Platelet Count 294 K/mm3 (150-450); RBC Distribution Width CV 17.9 % (11.6-14.6); Red Blood Count 2.84 M/mm3 (4.6-6.2); White Blood Count 10.1 K/mm3 (4.4-11.0)
[2025-03-10 08:01] LABS: Anion Gap 17 (5-15); BUN 58 mg/dL (4-19); Calcium,Total 8.5 mg/dL (7.6-11.0); Carbon Dioxide 21.5 mmol/L (21.0-32.0); Chloride 97 mmol/L (98-108); Creatinine, Serum 8.37 mg/dL (0.70-1.20); EST Glomerular Filtration Rate 7 (>60); Estimated Creatinine Clearance 14.78 ml/min (50-250); Glucose 111 mg/dL (70-99); Sodium Level 135 mmol/L (133-145)
[2025-03-10 08:31] LABS: International Normalized Ratio 2.3; Prothrombin Time (Protime)PT. 25.5 SECONDS (11.7-14.9)
[2025-03-10] MEDS: Aspirin E.C. 81 MG Tablet PO (08:53)
[2025-03-10] MEDS: Lidocaine 5% Patch 1 PATCH TOPICAL (08:53)
[2025-03-10] MEDS: SEVELAMER CARBONATE 800 MG TABLET 3200 MG PO ×3 (08:53→16:13)
[2025-03-10] MEDS: Cinacalcet HCl 30 MG Tablet 90 MG PO (08:54)
--- NOTE | 2025-03-10 10:49 | CASEMGMT ---
Addendum entered by Madhav Watt 03/10/25 14:02: Pt inquired about utilizing the [facility] van transport to appt @ [facility] on . Call placed to [facility] @ call center. He states they do not have any openings for van transport next . Pt made aware and states to keep the appt. He will see if his is able to assist him. Addendum entered by Madhav Watt 03/10/25 13:24: RACHEL PARNELL NOTE: RACHEL PARNELL to room. Pt sitting up in chair. Pt confirms he does want to do OP therapy, stating he wants to work on getting his strength back, stating his goal is to go back to work in April. Script provided to pt. He states he would like RACHEL PARNELL to schedule appt for him, stating he prefers and d/t OP HD MWF. He wants to go to [facility]. Script faxed to [facility]. [facility] and 1[facility] appt for eval scheduled for next , 03/15/25 @ 12 PM/Noon. DC plan updated. Pt made aware. Pt states he has concerns w/the 3 steps he has to go up to get into his home. He would like to work w/therapy on steps before discharging home. Call placed to therapy and they were notified. Pt denies having other discharge needs or concerns. Sandra KENNEDY RN, CM Original Note: RACHEL PARNELL NOTE: Per Dr Fernandes, pt will be discharging home today. Call placed to Emmy @ [facility] and she was made aware. Sandra KENNEDY RN, CM
[2025-03-10] MEDS: Morphine 2 MG/ML Syringe 1 MG IV (13:05)
--- NOTE | 2025-03-10 13:40 | PCM.PN.REN ---
Subjective Subjective no new events Objective Data Objective Data Vital Signs: Vital Signs Temp Pulse Resp BP Pulse Ox O2 Del Method O2 Flow Rate 97.9 F 74 18 122/68 H 99 Room Air 2 03/10/25 08:30 03/10/25 10:33 03/10/25 08:30 03/10/25 08:30 03/10/25 08:30 03/10/25 09:05 03/07/25 16:17 Oxygen Flow Rate (L/min) 2 Oxygen Delivery Method Room Air Weight: 120 kg Body Mass Index (BMI) 37.9 Intake & Output: Intake and Output for Last 24 Hours 03/08/25 03/09/25 03/10/25 23:59 23:59 23:59 Intake Total 942.37 / 942.37 950 / 1250 1120 / 1120 Output Total 2570 / 2570 Balance 942.37 / 942.37 -1620 / -1320 1120 / 1120 Lab / Micro Data 03/10/25 06:42 03/10/25 06:42 Labs: Laboratory Results - last 24 hr 03/10/25 06:42: WBC 10.1, RBC 2.84 L, Hgb 7.9 L, Hct 26.2 L, MCV 92.3, MCH 27.8, MCHC 30.2 L, RDW Std Deviation 61.0 H, RDW Coeff of Lance 17.9 H, Plt Count 294, MPV 10.7, Immature Gran % (Auto) 1.300 H, Neut % (Auto) 86.2 H, Lymph % (Auto) 3.6 L, Bailey % (Auto) 8.9, Eos % (Auto) 0.0, Baso % (Auto) 0.0, Absolute Neuts (auto) 8.7 H, Absolute Lymphs (auto) 0.36 L, Nucleated RBC % 0, PT 25.5 H, INR 2.3, Sodium 135, Potassium 5.0, Chloride 97 L, Carbon Dioxide 21.5, Anion Gap 17 H, BUN 58 H, Creatinine 8.37 H*, Estim Creat Clear Calc 14.78 L, Est GFR (MDRD) Non-Af 7 L, BUN/Creatinine Ratio 7.0 L, Glucose 111 H, Calcium 8.5 Micro: Microbiology 03/03/25 08:10 Fluid - Synovial (joint) Gram Stain - Final 03/03/25 08:10 Fluid - Synovial (joint) Body Fluid Culture - Final No growth aerobically. 03/03/25 08:10 Fluid - Synovial (joint) Anaerobic Culture - Final No growth in 5 days. 03/02/25 19:09 Blood Culture (Wb) - Right Hand Blood Culture - Final No growth in 5 days. 03/02/25 19:12 Blood Culture (Wb) - Right Hand Blood Culture - Final No growth in 5 days. 03/02/25 19:12 Mucosa - Nose SARS-CoV-2, Influenza & RSV (PCR) - Final Physical Exam Narrative Alert awake oriented x 3 no obvious distress s1s2 no murmurs lungs clear abdomen soft no edema Assessment & Plan Assessment/Plan (1) ESRD (end stage renal disease): PLAN: - ESRD on hemodialysis Friday. - right shoulder pain. ID note reviewed. somewhat better
--- NOTE | 2025-03-10 15:02 | DS.PCM_ITS ---
Providers Date of Admission: 03/03/25 Date of Discharge: 03/11/25 Primary Care Physician: Felicita Primary Care Phys Consultations 03/03/25 01:00 Consult: Nephrology Routine Consulting Provider: Tameka Melendez Reason for Consult: ESRD on HD EMERGENT Consult: No MD Notified: Yes Date Notified: 03/03/25 Time Notified: 08:35 Method of Notification: per dialysis nurse Consult: Onc/Wound/scaler packer Routine Comment: Reason for Consult:: chronic wounds 03/03/25 06:29 Consult: Orthopedics Routine Consulting Provider: Harris Shaffer Reason for Consult: Intractable R shoulder pain, R shoulder joint effusion asp consideration EMERGENT Consult: No MD Notified: Yes Date Notified: 03/03/25 Time Notified: 06:29 Method of Notification: Text 03/06/25 17:36 Consult: Infectious Disease Routine Consulting Provider: Harley Arriaza Reason for Consult: septic shoulder EMERGENT Consult: No MD Notified: Yes Date Notified: 03/07/25 Time Notified: 07:54 Method of Notification: Text Reason For Visit: RU/RL PAIN, ? CVA Diagnosis Discharge Diagnosis (1) ESRD (end stage renal disease): Status: Inactive Code(s): N18.6 - End stage renal disease Plan #GOut flare up of the right shoulder * S/p arthrocentesis concerning for infection. * his surgical risk was immense given his comorbidities so he had had the arthrocentesis done by radiology. * ID reviewed patient and thinks it is less likely septic arthritis and more of gout. * orthopedic surgery on board * PT/OT On board * fall precautions. * lidocaine patch for left shoulder pain * cultures of the synovial fluid are negative so far. * on IV solumedrol. Will switch to PO prednisone today. * * * # ESRD: * On hemodialysis Friday. management as per nephrology * #Hypotension: * Has improved * It does run low sometimes during dialysis. On midodrine. * #Acute on chronic anemia: * Hemoglobin is 7.8 today. Monitor closely and transfuse if hemoglobin drops less than 7. * This is likely due to the ESRD. * No evidence of bleeding. * # Mitral valve stenosis: S/p mitral valve replacement. On Coumadin. #Paroxysmal A-fib: on coumadin. monitor INR for goal INR of 2.5-3.5. INR today is 2 #Class II obesity: BMI is 38.6. Complicates acute care, expected recovery and prognosis DVT prophylaxis: on coumadin. Disposition: Discharge tomorrow. Patient refused discharge today wants to stay 1 more day. Medications at Discharge Home Medications BP monitor #1 ea 07/17/21 aspirin 81 mg tablet,delayed release (Adult Aspirin Regimen) 81 mg PO DAILY heart health 10/29/21 sucroferric oxyhydroxide 500 mg chewable tablet (Velphoro) 1,500 mg PO TIDCM phosphate binder 11/11/23 warfarin 5 mg tablet 5 mg PO DAILY blood thinner #90 tabs 05/07/24 cinacalcet 60 mg tablet 90 mg PO DAILY hormones 07/30/24 levothyroxine 25 mcg tablet 25 mcg PO DAILY disorder of thyroid gland 07/30/24 vitamin B complex-vitamin C-folic acid 0.8 mg tablet (Juju-Tashi) 1 tab PO DAILY vitamin 07/30/24 midodrine 10 mg tablet 10 mg PO TID blood pressure #90 tabs 03/01/25 oxycodone 5 mg tablet 5 mg PO BID PRN pain 03/01/25 lidocaine 5 % topical patch 1 patch topical DAILY PRN PRN pain, moderate #30 ea 03/10/25 prednisone 20 mg tablet 40 mg (2 x 20 mg) PO DAILY #10 tabs 03/10/25 Hospital Course Operations - (arthrocentesis fo the right shoulder) Procedures None and - Summary of Care Provided Minutes Spent on Discharge: 55 Hospital Course: Patient is a 45-year-old male with an extensive past medical history as outlined including ESRD on hemodialysis as well as pulmonary embolism on warfarin, paroxysmal A-fib and YEIMY was admitted through the ED on 03/02/2025 with a complaint of generalized feeling of unwellness. He complained of severe right shoulder pain. He denied any trauma to the right shoulder and said he could not move his arm very well. He therefore came into the ED. He denied any fever or chills. On admission imaging done showed no evidence of fracture and showed a markedly irregular appearance of the right glenoid with widening of the glenoid fossa and right shoulder joint effusion. There was concern that this could be infectious so he was started on broad-spectrum antibiotics and orthopedic surgery consulted. He was admitted to be managed for probable septic arthritis. Due to his comorbidities making him a high risk for surgery he had arthrocentesis done after initial aspiration yielded little fluid. He had arthrocentesis done by radiology on 03/03/2025 which yielded 40 cc of fluid. He was continued on the broad-spectrum antibiotics and ID was consulted on account of concern for septic arthritis. However cultures were negative and ID felt that his symptoms were much more likely due to gout. He was therefore started on IV Solu-Medrol. Neurology was also consulted and he had MRI of the brain which showed no evidence of stroke after CT also had showed no evidence of a stroke. Nephrology was consulted and he did receive dialysis during this admission. Patient had a prolonged hospital course. He was eventually discharged on 03/11/2025. He is to follow-up with his primary care doctor and to follow-up with nephrology on outpatient basis. He was discharged on p.o. prednisone 40 mg daily for 5 days and was also discharged with a prescription for lidocaine patch 5 mg daily apply once daily as needed for pain. Patient seen and examined prior to discharge. He was concerned about fluid overload but was on room air and was having dialysis. He had no other active complaints and labs and vitals were reviewed. Home medication reviewed and reconciled. Patient was seen wanted to have dialysis tomorrow 03/12/2025. However I did discuss this with nephrology who stated that there was no dialysis service in the hospital on Friday and so patient would have his regular follow-up dialysis on 03/14/2025. Physical Exam Const alert and oriented x3 Constitutional Narrative: class II obesity General Appearance: cooperative Orientation / Consciousness: awake HEENT normocephalic, head/scalp atraumatic, hearing grossly normal bilaterally and moist oral mucous membranes Mouth: oral and palatal mucosa normal Eyes EOMs intact bilaterally and conjunctivae normal Neck supple and no JVD Lymph Lymphatic: no lymphedema noted Resp Resp Narrative: mildly diminshed breath sounds bibasally, no wheezes or crackles. On room air Cardio regular rate, regular rhythm, S1 normal heart sound, S2 normal heart sound and no murmurs GI normal to inspection, nondistended, normoactive bowel sounds, soft to palpation, non-tender and non-distended GI Narrative: obese abdomen Extremity normal capillary refill, no clubbing, cyanosis or edema and no calf tenderness Extremity Narrative: permanent chest dialysis catheter in situ. Intact dressing over right shoulder. tenderness over right shoulder has improved markedly. General Extremity: no tenderness to palpation of joints or extremities Skin Skin Narrative: as under extremities, intact dressings over upper back from chronic wounds. Neuro CN's II-XII intact bilaterally, no focal motor deficits and no sensory deficits noted Neuro Narrative: right arm weakness has largely resolved Motor Exam: general weakness Psych thought process normal and cooperative Appearance: appropriate Weight / BMI Weight Weight: 259 lb 11.272 oz Body Mass Index (BMI) 37.3 ABG / Lab / Microbiology Data 03/11/25 04:24 03/11/25 04:24 Laboratory: Laboratory Results - last 24 hr 03/11/25 04:24: WBC 7.7, RBC 2.93 L, Hgb 8.1 L, Hct 27.2 L, MCV 92.8, MCH 27.6, MCHC 29.8 L, RDW Std Deviation 62.3 H, RDW Coeff of Lance 18.1 H, Plt Count 269, MPV 10.5, Immature Gran % (Auto) 1.000 H, Neut % (Auto) 86.4 H, Lymph % (Auto) 6.0 L, [place] % (Auto) 6.6, Eos % (Auto) 0.0, Baso % (Auto) 0.0, Absolute Neuts (auto) 6.7, Absolute Lymphs (auto) 0.46 L, Nucleated RBC % 0, Sodium 136, P otassium 5.4 H, Chloride 97 L, Carbon Dioxide 22.0, Anion Gap 17 H, BUN 84 H, C reatinine 9.68 H*, Estim Creat Clear Calc 18.62 L, Est GFR (MDRD) Non-Af 6 L, B UN/Creatinine Ratio 8.6 L, Glucose 119 H, Calcium 8.4 Microbiology: Microbiology 03/03/25 08:10 Fluid - Synovial (joint) Gram Stain - Final 03/03/25 08:10 Fluid - Synovial (joint) Body Fluid Culture - Final No growth aerobically. 03/03/25 08:10 Fluid - Synovial (joint) Anaerobic Culture - Final No growth in 5 days. 03/02/25 19:09 Blood Culture (Wb) - Right Hand Blood Culture - Final No growth in 5 days. 03/02/25 19:12 Blood Culture (Wb) - Right Hand Blood Culture - Final No growth in 5 days. 03/02/25 19:12 Mucosa - Nose SARS-CoV-2, Influenza & RSV (PCR) - Final D/C Instructions Discharge Diet: Low fat / Low cholesterol Discharge Activity: Return to Normal Activity Weight Bearing Status: Weight bearing as tolerated Call your doctor if you observe: Fever of 101 or Higher, Shortness of breath, Dizziness, Swelling in the ankles, Chest pain and Uncontrolled pain DC O2, CPAP, BIPAP Needs Home O2 Discharge instructions: No DC home with Oxygen: No Meaningful Use Info Meaningful Use Meaningful Use Diagnoses (Choose all that apply): None applicable Ischemic Stroke Statin Dosing Therapy Reference: STATIN DOSE THERAPY REFERENCE: * Patients > 75 years receive moderate or high dose statin therapy. * Patients 75 years or YOUNGER should receive HIGH intensity statin dose unless contraindicated. You will be required to document reason for non-treatment if statin daily dose does not meet guidelines. HIGH DOSE STATIN THERAPY DAILY Atorvastatin > than or = to 40 mg Rosuvastatin > than or = to 20 mg Amlodipine + Atorvastatin > than or = to 2.5/40 mg Ezetimibe + Simvastatin 10/80 mg Simvastatin 80mg Discharge Plan Admission Admit Date/Time: 03/03/25 11:50 Primary Reason for Your Visit: gout flare up of the right shoulder Attending Provider: Bree Fernandes Primary Care Provider: Care Physician,Felicita Primary Consulting Providers: Harris Shaffer; Myriam Smith; Tameka Melendez; Bree Fernandes; Harris Pope; Harley Arriaza Instructions Patient Instructions: ED Gout Discharge Orders/Prescriptions Prescriptions: New prednisone 20 mg tablet 40 mg PO DAILY Qty: 10 0RF lidocaine 5 % adhesive patch,medicated 1 patch topical DAILY PRN PRN (Reason: pain, moderate) Qty: 30 0RF Rx Instructions: leave on most painful area for up to 12 hrs Continued aspirin [Adult Aspirin Regimen] 81 mg tablet,delayed release (DR/EC) 81 mg PO DAILY levothyroxine 25 mcg tablet 25 mcg PO DAILY cinacalcet 60 mg tablet 90 mg PO DAILY Juju-Tashi 0.8 mg tablet 1 tab PO DAILY oxycodone 5 mg tablet 5 mg PO BID PRN (Reason: pain) midodrine 10 mg tablet 10 mg PO TID Qty: 90 3RF Velphoro 500 mg tablet,chewable 1,500 mg PO TIDCM Patient Comments: CRUSH OR CHEW AND SWALLOW 3 TABLETS 3 TIMES A DAY WITH MEALS (DME) BP monitor large cuff See Rx Instructions .Route .MEDSUPPLY Qty: 1 0RF Rx Instructions: As directed warfarin 5 mg tablet 5 mg PO DAILY Qty: 90 3RF Protocol: Dose Management Condition: Friday Dose/Route: 5 mg Instruction: 1 x 5 mg tablet Condition: Friday Dose/Route: 2.5 mg Instruction: 0.5 x 5 mg tablets Condition: Friday Dose/Route: 2.5 mg Instruction: 0.5 x 5 mg tablets Condition: Friday Dose/Route: 2.5 mg Instruction: 0.5 x 5 mg tablets Condition: Dose/Route: 2.5 mg Instruction: 0.5 x 5 mg tablets Condition: Friday Dose/Route: 5 mg Instruction: 1 x 5 mg tablet Condition: Friday Dose/Route: 5 mg Instruction: 1 x 5 mg tablet Protocol Text: Adjustment Start Date: Friday03/01/25 INR Value: 2.2 INR Date: 03/01/25 Recheck Date: 03/09/25 Referrals / Follow Up: Pawel Banda MD [Med Staff - Active Staff] - Within 2 Weeks (see to establish PCP care) Tameka Melendez MD [Med Staff - Consulting] - Within 1 Week Care Physician,No Primary [Primary Care Provider] - Disposition Disposition (needs filled in before D/C Order can be placed): Home, Self Care Charges/Coding Visit Charges Inpatient E&M: 29913 Disch Hosp >30min
--- NOTE | 2025-03-10 17:42 | PN_ITS ---
Subjective Subjective Patient seen and examined. He had no complaints this morning and said he felt well. Plan was to discharge patient earlier today and he was agreeable to that. However this late late afternoon patient requested to speak to Again and said he did not think he wanted to go home as he still felt fluid overloaded. Patient was on room air. I spoke to the grounds keeper and apparently his blood pressure was running low yesterday so he was not dialyzed down to his dry weight. Patient is due for outpatient dialysis tomorrow but says he wants to stay in the hospital to be dialyzed as he is worried he might get short of breath at home. He has remained hemodynamically stable though his blood pressure was running in the 90s systolic this afternoon. Objective Data Objective Data Vital Signs: Vital Signs Temp Pulse Resp BP Pulse Ox O2 Del Method O2 Flow Rate 98.2 F 90 16 98/82 H 99 Room Air 2 03/10/25 13:00 03/10/25 13:00 03/10/25 13:00 03/10/25 13:00 03/10/25 13:00 03/10/25 13:00 03/07/25 16:17 Oxygen Flow Rate (L/min) 2 Oxygen Delivery Method Room Air Weight: 264 lb 8.875 oz Body Mass Index (BMI) 37.9 Intake & Output: Intake and Output for Last 24 Hours 03/08/25 03/09/25 03/10/25 23:59 23:59 23:59 Intake Total 942.37 / 942.37 950 / 1250 1120 / 1120 Output Total 2570 / 2570 Balance 942.37 / 942.37 -1620 / -1320 1120 / 1120 Lab / Micro Data 03/10/25 06:42 03/10/25 06:42 Labs: Laboratory Results - last 24 hr 03/10/25 06:42: WBC 10.1, RBC 2.84 L, Hgb 7.9 L, Hct 26.2 L, MCV 92.3, MCH 27.8, MCHC 30.2 L, RDW Std Deviation 61.0 H, RDW Coeff of Lance 17.9 H, Plt Count 294, MPV 10.7, Immature Gran % (Auto) 1.300 H, Neut % (Auto) 86.2 H, Lymph % (Auto) 3.6 L, [place] % (Auto) 8.9, Eos % (Auto) 0.0, Baso % (Auto) 0.0, Absolute Neuts (auto) 8.7 H, Absolute Lymphs (auto) 0.36 L, Nucleated RBC % 0, PT 25.5 H, INR 2.3, Sodium 135, Potassium 5.0, Chloride 97 L, Carbon Dioxide 21.5, Anion Gap 17 H, BUN 58 H, Creatinine 8.37 H*, Estim Creat Clear Calc 14.78 L, Est GFR (MDRD) Non-Af 7 L, BUN/Creatinine Ratio 7.0 L, Glucose 111 H, Calcium 8.5 Micro: Microbiology 03/03/25 08:10 Fluid - Synovial (joint) Gram Stain - Final 03/03/25 08:10 Fluid - Synovial (joint) Body Fluid Culture - Final No growth aerobically. 03/03/25 08:10 Fluid - Synovial (joint) Anaerobic Culture - Final No growth in 5 days. 03/02/25 19:09 Blood Culture (Wb) - Right Hand Blood Culture - Final No growth in 5 days. 03/02/25 19:12 Blood Culture (Wb) - Right Hand Blood Culture - Final No growth in 5 days. 03/02/25 19:12 Mucosa - Nose SARS-CoV-2, Influenza & RSV (PCR) - Final Physical Exam Const alert and oriented x3 Constitutional Narrative: class II obesity, General Appearance: cooperative HEENT normocephalic, head/scalp atraumatic and moist oral mucous membranes Eyes PERRL and EOMs intact bilaterally Neck supple and no JVD Lymph Lymphatic: no lymphedema noted Resp Resp Narrative: mildly diminshed breath sounds bibasally, no wheezes or crackles. On room air Cardio regular rate, regular rhythm, S1 normal heart sound, S2 normal heart sound and no murmurs GI normal to inspection, nondistended, normoactive bowel sounds, soft to palpation, non-tender and non-distended GI Narrative: obese abdomen Extremity normal capillary refill, no clubbing, cyanosis or edema and no calf tenderness Extremity Narrative: permanent chest dialysis catheter in situ. Intact dressing over right shoulder. tenderness over right shoulder has improved markedly. General Extremity: no tenderness to palpation of joints or extremities Skin Skin Narrative: as under extremities, intact dressings over upper back from chronic wounds. Neuro CN's II-XII intact bilaterally, no focal motor deficits and no sensory deficits noted Neuro Narrative: right arm weakness, has largely resolved Motor Exam: general weakness Psych thought process normal and cooperative Psych Narrative: in moderate distress due to pain Appearance: appropriate Assessment & Plan Assessment/Plan (1) ESRD (end stage renal disease): PLAN: Plan #GOut flare up of the right shoulder * S/p arthrocentesis concerning for infection. * his surgical risk was immense given his comorbidities so he had had the arthrocentesis done by radiology. * ID reviewed patient and thinks it is less likely septic arthritis and more of gout. * orthopedic surgery on board * PT/OT On board * fall precautions. * lidocaine patch for left shoulder pain * cultures of the synovial fluid are negative so far. * Switch from IV Solu-Medrol to p.o. prednisone. * * * # ESRD: * On hemodialysis Friday. management as per nephrology * Patient refusing to go home today due to concerns about fluid overload as he was not taken down to his dry weight on Friday on account of hypotension. To be dialyzed tomorrow * #Hypotension: * Has improved * It does run low sometimes during dialysis. On midodrine. * #Acute on chronic anemia: * Hemoglobin is 7.9 today. Monitor closely and transfuse if hemoglobin drops less than 7. * This is likely due to the ESRD. * No evidence of bleeding. * # Mitral valve stenosis: S/p mitral valve replacement. On Coumadin. #Paroxysmal A-fib: on coumadin. monitor INR for goal INR of 2.5-3.5. INR today is 2.3 #Class II obesity: BMI is 38.6. Complicates acute care, expected recovery and prognosis DVT prophylaxis: on coumadin. Disposition: * Plan was for discharge today but now patient states he will stay 1 more day for hemodialysis tomorrow as he feels he still fluid overloaded. * Of note patient is on room air. Charges/Coding Visit Charges Inpatient E&M: 76775 Subs Hosp L2
--- NOTE | 2025-03-10 23:36 | NURSING ---
This RN taking over care for this Pt at this time.
[2025-03-11] VITALS (25 sets, daily range): BP systolic 107–241; BP diastolic 74–102; PULSE 61–97; RESP 14–16; TEMP 36.4–36.7; O2SAT 98–100; BMI 71.1; BMI 39.2; BMI 37.3
[2025-03-11] MEDS: oxyCODONE 5 MG Tablet PO (04:39)
[2025-03-11 05:06] LABS: Absolute Lymphocyte Count 0.46 X10^3/uL (0.83-4.51); Absolute Neutrophil Count 6.7 X10^3/uL (2.0-7.7); Hematocrit 27.2 % (40-54); Hemoglobin 8.1 g/dL (13.0-16.5); Lymphocyte # 0.46 X10^3/ul (0.83-4.51); Mean Corp Hgb Conc 29.8 g/dL (32-36); Mean Corpuscular Hgb 27.6 pg (27.0-32.0); Mean Corpuscular Volume 92.8 fL (80-94); Mean Platelet Vol. 10.5 fl (6.2-12.0); Monocyte# 0.51 X10^3/uL; Monocyte% 6.6 % (0-10); NRBC Flagged by Analyzer 0 % (0-5); Neutrophil # 6.68 X10^3/uL (2.7-7.7); Neutrophil % 86.4 % (47-70); POSITIVE DIFFERENTIAL YES; Platelet Count 269 K/mm3 (150-450); RBC Distribution Width CV 18.1 % (11.6-14.6); RBC Distribution Width SD 62.3 fl (35.1-43.9); Red Blood Count 2.93 M/mm3 (4.6-6.2); White Blood Count 7.7 K/mm3 (4.4-11.0)
[2025-03-11 05:48] LABS: Anion Gap 17 (5-15); BUN 84 mg/dL (4-19); BUN/Creat Ratio 8.6 RATIO (10-20); Calcium,Total 8.4 mg/dL (7.6-11.0); Chloride 97 mmol/L (98-108); Creatinine, Serum 9.68 mg/dL (0.70-1.20); EST Glomerular Filtration Rate 6 (>60); Estimated Creatinine Clearance 18.62 ml/min (50-250); Glucose 119 mg/dL (70-99); Potassium 5.4 mmol/L (3.3-5.1); Sodium Level 136 mmol/L (133-145)
[2025-03-11] MEDS: Midodrine HCl 5 MG Tablet 10 MG PO ×2 (06:37→13:41)
[2025-03-11] MEDS: Levothyroxine 25 MCG TABLET PO (06:38)
--- NOTE | 2025-03-11 08:00 | CASEMGMT ---
Addendum entered by Madhav Watt 03/11/25 14:51: DC order is in. RACHEL PARNELL to room. Pt sitting up in chair. Printing Roller Polisher informed this RN SOHEILA that she called to schedule an appt w/Dr Banda but the office states pt has had 3 no call/no shows and they will not accept him back. Pt made aware and states he does not want to go back there anyway. He states he has the PCP provider list that RACHEL Dahl CM, provided to him. He states he will look over this when he gets home and make calls to see about schedule an appt w/a new provider. He denies having any further discharge needs or concerns. Original Note: RACHEL PARNELL note: Call placed to [facility] and spoke w/Farhad. He was made aware pt was not discharged yesterday, plan is for pt to receive HD today @ [facility] and then discharge. His next OP HD @ [facility] will be on Wednesday 03/14. Sandra KENNEDY RN, CM
--- NOTE | 2025-03-11 09:00 | NUR.TO.PHY ---
international accountant, Rosa contacted this Dialysis Coordinator this am as pt refused to leave hospital yesterday b/c he is fluid overloaded & possibly may get short of breath. Pt states today that he will not leave hospital until he gets to dry weight. Dialysis Coordinator spoke with outpatient clinic: [facility]. Per clinic, [facility], pt current dry weight is 114kg. pt frequently arrives late for treatment &/or signs off treatment early. Lowest weight pt has achieved in past several weeks is 115kg, but typically leaves around 116-117kg.
--- NOTE | 2025-03-11 10:22 | PN.RENAL_ITS ---
Subjective Subjective Seen on dialysis, tolerating treatment well. No overnight events. Objective Data Objective Data Vital Signs: Vital Signs Temp Pulse Resp BP Pulse Ox O2 Del Method O2 Flow Rate 97.7 F L 63 14 129/86 H 100 Room Air 2 03/11/25 08:20 03/11/25 10:15 03/11/25 10:15 03/11/25 10:15 03/11/25 10:15 03/11/25 10:15 03/07/25 16:17 Oxygen Flow Rate (L/min) 2 Oxygen Delivery Method Room Air Weight: 124 kg Body Mass Index (BMI) 39.2 Intake & Output: Intake and Output for Last 24 Hours 03/09/25 03/10/25 03/11/25 23:59 23:59 23:59 Intake Total 950 / 1250 1740 / 1740 Output Total 2570 / 2570 Balance -1620 / -1320 1740 / 1740 Lab / Micro Data 03/11/25 04:24 03/11/25 04:24 Labs: Laboratory Results - last 24 hr 03/11/25 04:24: WBC 7.7, RBC 2.93 L, Hgb 8.1 L, Hct 27.2 L, MCV 92.8, MCH 27.6, MCHC 29.8 L, RDW Std Deviation 62.3 H, RDW Coeff of Lance 18.1 H, Plt Count 269, MPV 10.5, Immature Gran % (Auto) 1.000 H, Neut % (Auto) 86.4 H, Lymph % (Auto) 6.0 L, [place] % (Auto) 6.6, Eos % (Auto) 0.0, Baso % (Auto) 0.0, Absolute Neuts (auto) 6.7, Absolute Lymphs (auto) 0.46 L, Nucleated RBC % 0, Sodium 136, P otassium 5.4 H, Chloride 97 L, Carbon Dioxide 22.0, Anion Gap 17 H, BUN 84 H, C reatinine 9.68 H*, Estim Creat Clear Calc 18.62 L, Est GFR (MDRD) Non-Af 6 L, B UN/Creatinine Ratio 8.6 L, Glucose 119 H, Calcium 8.4 Micro: Microbiology 03/03/25 08:10 Fluid - Synovial (joint) Gram Stain - Final 03/03/25 08:10 Fluid - Synovial (joint) Body Fluid Culture - Final No growth aerobically. 03/03/25 08:10 Fluid - Synovial (joint) Anaerobic Culture - Final No growth in 5 days. 03/02/25 19:09 Blood Culture (Wb) - Right Hand Blood Culture - Final No growth in 5 days. 03/02/25 19:12 Blood Culture (Wb) - Right Hand Blood Culture - Final No growth in 5 days. 03/02/25 19:12 Mucosa - Nose SARS-CoV-2, Influenza & RSV (PCR) - Final Physical Exam Narrative Alert awake oriented x 3 no obvious distress s1s2 no murmurs lungs clear abdomen soft edema B/L legs Assessment & Plan Assessment/Plan (1) ESRD (end stage renal disease): PLAN: - ESRD on hemodialysis Friday. Hemodialysis today 2kbath, attempting ~3-4L fluid removal with HD today as pt/bp tolerates. If discharged today, next HD [facility].
[2025-03-11] MEDS: 0.9% Normal Saline 1,000 ML IV.SOLN. 1000 ML OPERA.SITE (11:01)
[2025-03-11] MEDS: Heparin 10,000 UNITS/10 ML Vial IV (11:01)
[2025-03-11] MEDS: PureFlow B 2K Dialysis Soln 1 BAG 6 BAG PF (11:01)
[2025-03-11] MEDS: 0.9% Saline Lock 10 ML Syringe IV ×2 (11:01→13:50)
[2025-03-11] MEDS: Aspirin E.C. 81 MG Tablet PO (13:39)
[2025-03-11] MEDS: Cinacalcet HCl 30 MG Tablet 90 MG PO (13:39)
[2025-03-11] MEDS: Lidocaine 5% Patch 1 PATCH TOPICAL (13:39)
[2025-03-11] MEDS: SEVELAMER CARBONATE 800 MG TABLET 3200 MG PO (13:40)
[2025-03-11] MEDS: Morphine 2 MG/ML Syringe 1 MG IV (13:50)
--- NOTE | 2025-03-11 14:36 | DCINST_ITS ---
Discharge Instructions Diet Discharge Diet: Low fat / Low cholesterol DC O2, CPAP, BIPAP needs Home O2 Discharge instructions: No Dressing / Incision Discharge Activity: Return to Normal Activity Weight Bearing Status: Weight bearing as tolerated Dressing / Incision Call your doctor if you observe: Fever of 101 or Higher, Shortness of breath, Dizziness, Swelling in the ankles, Chest pain and Uncontrolled pain Follow Up Care Test Results: Test results from this visit will be discussed in further detail at your follow- up appointment, if applicable. Discharge Plan Admission Admit Date/Time: 03/03/25 11:50 Primary Reason for Your Visit: gout flare up of the right shoulder Attending Provider: Bree Fernandes Primary Care Provider: Care Physician,Felicita Primary Consulting Providers: Harris Shaffer; Myriam Smith; Tameka Melendez; Bree Fernandes; Harris Pope; Harley Arriaza Instructions Patient Instructions: ED Gout Discharge Orders/Prescriptions Prescriptions: New prednisone 20 mg tablet 40 mg PO DAILY Qty: 10 0RF lidocaine 5 % adhesive patch,medicated 1 patch topical DAILY PRN PRN (Reason: pain, moderate) Qty: 30 0RF Rx Instructions: leave on most painful area for up to 12 hrs Continued aspirin [Adult Aspirin Regimen] 81 mg tablet,delayed release (DR/EC) 81 mg PO DAILY levothyroxine 25 mcg tablet 25 mcg PO DAILY cinacalcet 60 mg tablet 90 mg PO DAILY Juju-Tashi 0.8 mg tablet 1 tab PO DAILY oxycodone 5 mg tablet 5 mg PO BID PRN (Reason: pain) midodrine 10 mg tablet 10 mg PO TID Qty: 90 3RF Velphoro 500 mg tablet,chewable 1,500 mg PO TIDCM Patient Comments: CRUSH OR CHEW AND SWALLOW 3 TABLETS 3 TIMES A DAY WITH MEALS (DME) BP monitor large cuff See Rx Instructions .Route .MEDSUPPLY Qty: 1 0RF Rx Instructions: As directed warfarin 5 mg tablet 5 mg PO DAILY Qty: 90 3RF Protocol: Dose Management Condition: Friday Dose/Route: 5 mg Instruction: 1 x 5 mg tablet Condition: Friday Dose/Route: 2.5 mg Instruction: 0.5 x 5 mg tablets Condition: Friday Dose/Route: 2.5 mg Instruction: 0.5 x 5 mg tablets Condition: Friday Dose/Route: 2.5 mg Instruction: 0.5 x 5 mg tablets Condition: Dose/Route: 2.5 mg Instruction: 0.5 x 5 mg tablets Condition: Friday Dose/Route: 5 mg Instruction: 1 x 5 mg tablet Condition: Friday Dose/Route: 5 mg Instruction: 1 x 5 mg tablet Protocol Text: Adjustment Start Date: Friday03/01/25 INR Value: 2.2 INR Date: 03/01/25 Recheck Date: 03/09/25 Referrals / Follow Up: Pawel Banda MD [Med Staff - Active Staff] - Within 2 Weeks (see to establish PCP care) Tameka Melendez MD [Med Staff - Consulting] - Within 1 Week Care Physician,No Primary [Primary Care Provider] - Disposition Disposition (needs filled in before D/C Order can be placed): Home, Self Care
== END 2025-03-11 15:24 | disposition home or self-care (01) | DRG 553 ==
LOC: ED 03-03 00:20 → PCU 03-03 00:56
PROVIDERS: Family Medicine; Student in an Organized Health Care Education/Training Program; Admitting Provider Family Medicine; Emergency Provider Emergency Medicine; Visit Provider Student in an Organized Health Care Education/Training Program
DX: M10.011 Idiopathic gout, right shoulder (principal); N18.6 End stage renal disease; J18.9 Pneumonia, unspecified organism; I12.0 Hypertensive chronic kidney disease with stage 5 chronic kidney disease or end stage renal disease; E87.20 Acidosis, unspecified; D63.1 Anemia in chronic kidney disease; D63.8 Anemia in other chronic diseases classified elsewhere; E03.9 Hypothyroidism, unspecified; E04.2 Nontoxic multinodular goiter; Z68.38 Body mass index [BMI] 38.0-38.9, adult; Z95.2 Presence of prosthetic heart valve; I48.0 Paroxysmal atrial fibrillation; E66.01 Morbid (severe) obesity due to excess calories; Z99.2 Dependence on renal dialysis; D50.9 Iron deficiency anemia, unspecified; I05.0 Rheumatic mitral stenosis; I25.2 Old myocardial infarction; G47.33 Obstructive sleep apnea (adult) (pediatric); Z79.01 Long term (current) use of 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s; Z86.16 Personal history of COVID-19; R91.1 Solitary pulmonary nodule; Z79.890 Hormone replacement therapy; E66.812 Obesity, class 2; R45.1 Restlessness and agitation; Z86.711 Personal history of pulmonary embolism
CPT/HCPCS: 20610; 36415; 70450; 70496; 70498; 70551; 71046; 73030; 73200; 73562; 77002; 80048; 80053; 80061; 80202; 83036; 83605; 83735; 84100; 84145; 84443; 84484; 85025; 85610; 85652; 85730; 86140; 87040; 87070; 87075; 87205; 87631; 89050; 89051; 89060; 90937; 92526; 92610; 93005; 93308; 94668; 94762; 97110; 97116; 97162; 97165; 97530; 97535; 97803; 99285; Q9957; Q9967; A4216; G0257; J0696

== ENCOUNTER 2025-03-15 12:13 | Outpatient (RCR) | payer MEDICARE, SELFPAY ==
--- NOTE | 2025-03-15 14:00 | HP.OTEVAL ---
Patient's Visit Information Visit Information Visit Information: REJI SPAIN is a 45 year old M, referred to Occupational Therapy by Dr. Bree Fernandes MD, with a diagnosis of R shoulder pain. Date of Evaluation: 03/15/25 Occupational Therapist: Nuria Hammer Subjective Subjective: pt presenting with R shoulder pain following hospital stay for approx 1 week at [facility]. pt reporting having trouble with this shoulder for a while. hx of RTC issues on R side. Withdrew fluid from R shoulder and dx him with gout, CVA was ruled out. Pt is still on prednisone currently for the shoulder. pt does feel better since he got out of the hospital and is able to walk more than what he was doing prior to the hospital stay. Pt is on dialysis x3/week MWF. Pt able to do upper body and lower body dressing indep. Pt unable to take showers d/t port in the chest. Unable to stand during sponge bathing, sits on the toilet to complete, and is able to do this indep. Wants to work towards standing during sponge bathing task. Pt does not have any AE such as production crew supervisor/sock aid. No GB next to toilet. Pt has single point cane and FWW at home, no rollator. Currently furniture walking short distances, able to walk approx 40 feet in PT prior to this session. Pt still driving but very minimal. Has 3STE at his home but single story once he's in. 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 Shoulder problems started about 10 years ago with aching, but would then get better. This new dx of gout is causing it to become worse again. Current shoulder problems have set on more recently within the past few weeks and was very abrupt. ADLs Comments: pt reporting indep in all ADLs at this time. pt was able to complete toileting task with indep during evaluation. pt reporting sitting on commode to sponge bathe but wants to work towards standing. 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 Goal:: pt to demo improved isolated R shoulder flexion by 15* for greater use of RUE during dressing/bathing tasks with decreased discomfort. Goal:: Pt to tolerate standing dynamic activities x10 minutes prior to needing a break for greater endurance during sponge bathing and sink side grooming tasks. Goal:: pt to betyo improved indep at home by reducing DASH score by 25 points Rehabilitation General Assessment: pt presenting with R shoulder pain following recent dx of gout and having fluid drained from joint. pt with recent hospital stay for wound care and ruled out stroke d/t sudden onset of shoulder weakness/pain symptoms. Pt reporting shoulder problems in the past however reporting this new loss of motion is new. Pt demo decreased AROM in R shoulder along with 1 finger subluxation in shoulder joint. Increased tenderness to touch through upper trap. Wounds present around rhomboid area and chest on R side along with chest port on R side. 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 Pt using upper trap movement compensations to gain any active shoulder flexion. Pt wanting to improve overall standing endurance during daily activities to better support and participate with his family. Pt would benefit from skilled OT services x2/week for 4 weeks for overall greater strengthening and activity tolerance during daily tasks to improve indep at home. Rehabilitation Potential: Good Anticipated Interventions Anticipated Interventions: A/AAROM/PROM, Strengthening, Scar Care, Massage, Triggerpoint Release, Modalities, Joint Protection/Energy Conservation, Ergonomic Education, ADL Training and Home Program Visit Plan Frequency: 2x /Week Duration: 4 Weeks TEXT: Thank you for the opportunity to evaluate your patient. For Medicare and Medicare HMO plans, please review the plan of care and approve it. It will need to be FAXED BACK to us at [phone] for Medicare purposes. Please let me know if there are questions or concerns regarding this plan of care. Physician Signature: Date:
--- NOTE | 2025-03-15 14:09 | HP.PTEVAL ---
Patient's Visit Information Visit Information Visit Information: REJI SPAIN is a 45 year old M referred to Physical Therapy by Dr. Bree Fernandes MD with a diagnosis of R shoulder pain, generalized weakness, impaired gait. Date of Evaluation: 03/15/25 Physical Therapist: KATHIE Leonard Visit Plan Frequency: 2x /Week Duration: 2 Months Plan: 2X/ week for 8 weeks for LE strength, standing balance, standing endurance, gait mechanics with least restrictive device, gait endurance, functional activities with HEP Subjective Subjective: Pt worked at a [employer] system and he started developing these wounds over his torso and they open and they bleed which has caused hospitalization. They do not know what the wounds are from but he has been on dialysis for 20 years. His wounds are getting better. Being in and out of the hospital has caused his muscle mass to decrease and decrease ability to walk. He can walk short distances because he gets winded or his legs get tight. 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 He does have steps at home but they terrify him. He has to get into his house up his front steps and there is no railing. He has fallen a few years ago. He needs help down and up. He is driving. He is sleeping ok sleeping in a recliner. He uses a can occ with walking but usually walks with no AD. He reports that his balance is worse the longer that he stands. Pain R shoulder pain: Pain Intensity (Out of 10): 2 back wound: Pain Intensity (Out of 10): 2 Objective Objective: Gait: walks 41.5 feet from mat table to wheelchair with rolling walker with CGA. Decrease heel to toe gait pattern and has a hard time picking up his toes. Gets about 1/2 normal ROM with heel raises with UE support. R handed. R hip flex 14.6 and L 11.8 R knee ext 10.2 and L 6 R knee flex 6.4 and L 7.1 B supine hip abd 4-/5 SLR 3-/5 UE AROM: R shoulder flex 10 degrees and L shoulder flexion 90 degrees R shoulder Strength: R shoulder ER 4.3 and L 6.1 Sit stand: uses the arms of the chair with decreased weight shift FW and heavy use of the arms Standing unsupported for about 30 seconds and then feels like legs will give out. Tinetti 11 Balance/Special Test Scores Tinetti Balance Score: 8 Tinetti Gait Score: 3 Tinetti Balance & Gait Score: 11 Lower Extremity Functional Score: 14 Goals Goal 1:: I HEP Goal Time Frame: 6-8 Weeks Goal 2:: Increase LE strength (at the time of the eval: R hip flex 14.6 and L 11.8 R knee ext 10.2 and L 6 R knee flex 6.4 and L 7.1 B supine hip abd 4-/5 SLR 3-/5). Goal Time Frame: 6-8 Weeks Goal 3:: Increase balance score (at the time of the eval 11) Goal Time Frame: 6-8 Weeks Goal 4:: Be able to walk 150 feet with least restrictive device with SBA Goal Time Frame: 6-8 Weeks Goal 5:: Be able to stand for 8 min and complete 8 min of standing exercises Goal Time Frame: 6-8 Weeks Rehabilitation Potential Rehabilitation Potential: Good Anticipated Interventions Patient/Client Instruction: Educate patient on: Condition and Plan of Care For the Purpose of:: To decrease pain, To increase ROM, To improve muscle performance and motor function, To improve ability to perform ADL's, To increase tolerance to activity/condition/position, To improve performance and independence with ADL's, To decrease level of supervision to perform tasks, To improve ability of physical actions for home/community/work/leisure, To improve gait and locomotor functions, To improve endurance, To improve balance and To improve safety with gait Therapeutic Exercise to Include: Strength training, Endurance training, Balance training, Body mechanics, Postural training, Gait and locomotor training, Neuromotor development and Dynamic Lumbar Stabilization For the Purpose of:: To improve muscle performance and motor function, To improve ability to perform ADL's, To increase tolerance to activity/condition/position, To improve performance and independence with ADL's, To decrease level of supervision to perform tasks, To improve ability of physical actions for home/community/work/leisure, To improve gait and locomotor functions, To improve health of tissue, To decrease soft tissue restriction, To improve endurance, To improve balance and To improve safety with gait Functional Training to Include: Gait training For the Purpose of:: To improve gait and locomotor functions Text: Thank you for the opportunity to evaluate your patient. For Medicare and Medicare HMO plans, please review the plan of care and approve it. It will need to be FAXED BACK to us at [phone] for Medicare purposes. For Medicare only, by signing this I certify the plan of care. Please let me know if there are questions or concerns regarding this plan of care. Physician Signature: Date:
--- NOTE | 2025-05-27 11:20 | HP.OT.NRP ---
Patient Information Patient Information: REJI SPAIN was seen in my office for initial evaluation on 03/15/25. The following Plan of Care was established for this patient: POC Established Initial Frequency: 2x /Week Initial Duration: 4 Weeks Anticipated Interventions Anticipated Interventions: A/AAROM/PROM, Strengthening, Scar Care, Massage, Triggerpoint Release, Modalities, Joint Protection/Energy Conservation, Ergonomic Education, ADL Training and Home Program Last Seen Last Seen: This patient was last seen in our office 03/15/25. Pertinent comments regarding their Occupational therapy will appear below: pt has not returned for therapy and at this time due to time lapse in services pt d/c. At this point I will be discontinuing this patient from occupational therapy. I would be happy to see this patient again in the future if found appropriate by the physician. Thank you! Mary Gama, OTR/L, CHT
== END 2025-03-15 19:00 | disposition home or self-care (01) ==
LOC: PT 12:13
PROVIDERS: Referring Provider Student in an Organized Health Care Education/Training Program; Visit Provider Student in an Organized Health Care Education/Training Program
DX: M25.511 Pain in right shoulder (principal); R26.89 Other abnormalities of gait and mobility; R53.83 Other fatigue
CPT/HCPCS: 97162; 97165; 97530

== ENCOUNTER 2025-03-17 15:59 | Outpatient (RCR) | payer MEDICARE, SELFPAY ==
[2025-03-17 16:55] LABS: International Normalized Ratio 2.1; Prothrombin Time (Protime)PT. 24.1 SECONDS (11.7-14.9)
== END 2025-03-28 23:59 ==
LOC: LABSPEC 15:59
PROVIDERS: Referring Provider Internal Medicine Cardiovascular Disease; Visit Provider Internal Medicine Cardiovascular Disease
DX: Z79.01 Long term (current) use of 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s (principal)
CPT/HCPCS: 36415; 85610

== ENCOUNTER 2025-03-21 23:16 | Emergency (ER) | payer MEDICARE, SELFPAY ==
[2025-03-21 23:18] VITALS: BP 131/104; PULSE 120; RESP 18; TEMP 37; O2SAT 100; BMI 36.3
[2025-03-21 23:23] VITALS: O2SAT 100
[2025-03-21 23:48] VITALS: O2SAT 95
[2025-03-22 00:19] LABS: Anion Gap 20 (5-15); BUN 37 mg/dL (4-19); BUN/Creat Ratio 5.4 RATIO (10-20); Calcium,Total 8.4 mg/dL (7.6-11.0); Carbon Dioxide 23.1 mmol/L (21.0-32.0); Chloride 95 mmol/L (98-108); Creatinine, Serum 6.83 mg/dL (0.70-1.20); EST Glomerular Filtration Rate 10 (>60); Glucose 86 mg/dL (70-99); Potassium 4.5 mmol/L (3.3-5.1); Sodium Level 138 mmol/L (133-145)
[2025-03-22 00:24] LABS: Absolute Lymphocyte Count 0.93 X10^3/uL (0.83-4.51); Absolute Neutrophil Count 6.5 X10^3/uL (2.0-7.7); Basophil# 0.03 X10^3/uL; Basophil% 0.3 % (0-1); Eosinophil# 0.08 X10^3/uL; Eosinophils% 0.9 % (0-5); Hematocrit 31.6 % (40-54); Hemoglobin 9.8 g/dL (13.0-16.5); Lymphocyte # 0.93 X10^3/ul (0.83-4.51); Lymphocyte % 10.6 % (19-41); Mean Corpuscular Hgb 29.3 pg (27.0-32.0); Mean Corpuscular Volume 94.3 fL (80-94); Mean Platelet Vol. 10.9 fl (6.2-12.0); Monocyte# 1.24 X10^3/uL; Monocyte% 14.1 % (0-10); NRBC Flagged by Analyzer 0.5 % (0-5); Neutrophil # 6.47 X10^3/uL (2.7-7.7); Neutrophil % 73.4 % (47-70); POSITIVE MORPHOLOGY YES; Platelet Count 227 K/mm3 (150-450); RBC Distribution Width CV 21.9 % (11.6-14.6); RBC Distribution Width SD 67.7 fl (35.1-43.9); Red Blood Count 3.35 M/mm3 (4.6-6.2); White Blood Count 8.8 K/mm3 (4.4-11.0)
[2025-03-22 00:26] LABS: Differential Indicated SCAN CRITERIA MET
--- NOTE | 2025-03-22 00:38 | EKG12_ITS ---
Test Reason : SOB Blood Pressure : */* mmHG Vent. Rate : 111 BPM Atrial Rate : 125 BPM P-R Int : * ms QRS Dur : 64 ms QT Int : 336 ms P-R-T Axes : * 132 67 degrees QTcB Int : 456 ms Atrial fibrillation Right axis deviation Low voltage QRS Septal infarct , age undetermined Abnormal ECG Confirmed by SALMA STAHL, JACOBY ([id number]), video tape editor MARGARITO CHANDLER ([id number]) on 03/23/2025 11:04:28 AM Referred By: BB Confirmed By: JACOBY MARSH MD
--- NOTE | 2025-03-22 00:38 | ED.VIS.DYS ---
HPI History of Present Illness Chief Complaint: Shortness of Breath Informant: patient and EMS Narrative Narrative: 45-year-old male with 3 to 4 hours worth of feeling malaised, lightheaded, and short of breath, like my blood pressure is low. He states he misplaced his midodrine pills yesterday, he takes it 3 times a day so after the morning dose yesterday he did not have any until he went to dialysis this evening. He finished up around 7 or so and when he left he felt fine but then he gradually started feeling worse later. He states he does not have air conditioning and in order to cool off during the heat wave today in the last couple days, he sometimes goes out to his car turns on the fan. States he did not feel like he was really overheated but he did that tonight in order to try to stay cool. He states it took off about 5 and half liters of dialysis, he lost about 5 or 6 pounds as a result and is currently at his dry weight. 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 Mitral valve annular calcification Central retinal artery occlusion of left eye (10/09/20) History of non-ST elevation myocardial infarction (NSTEMI) (11/08/19) 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 History of bacterial endocarditis Mechanical complication of arteriovenous fistula surgically created Obstructive sleep apnea Non compliance w medication regimen Nonrheumatic mitral valve stenosis with insufficiency 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) Atrial flutter with rapid ventricular response (07/2020) Essential (primary) hypertension History of venous thromboembolism History of pulmonary embolus (PE) Bilateral carotid artery stenosis Paroxysmal atrial fibrillation (06/10/20) Unspecified symptoms and signs involving cognitive functions and awareness (04/05/20) 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) Expressive aphasia (04/05/20) ESRD on hemodialysis Dialysis patient Chronic kidney disease-mineral and bone disorder Chronic pelvic pain in male Pelvic mass Hematuria History of blood clots Hearing loss 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 due to renal insufficiency Morbidly obese Home Medications ?Medication ?Instructions ?Recorded ?Last Taken ?Type BP monitor #1 ea 07/17/21 Unknown Rx aspirin 81 mg tablet,delayed 81 mg PO DAILY heart health 10/29/21 02/24/25 History release (Adult Aspirin Regimen) sucroferric oxyhydroxide 500 mg 1,500 mg PO TIDCM phosphate binder 11/11/23 03/01/25 History chewable tablet (Velphoro) warfarin 5 mg tablet 5 mg PO DAILY blood thinner #90 05/07/24 03/01/25 Rx tabs cinacalcet 60 mg tablet 90 mg PO DAILY hormones 07/30/24 03/02/25 History levothyroxine 25 mcg tablet 25 mcg PO DAILY disorder of 07/30/24 03/02/25 History thyroid gland vitamin B complex-vitamin C-folic 1 tab PO DAILY vitamin 07/30/24 02/21/25 History acid 0.8 mg tablet (Juju-Tashi) midodrine 10 mg tablet 10 mg PO TID blood pressure #90 03/01/25 02/28/25 Rx tabs oxycodone 5 mg tablet 5 mg PO BID PRN pain 03/01/25 03/01/25 History lidocaine 5 % topical patch 1 patch topical DAILY PRN PRN 03/10/25 Unknown Rx pain, moderate #30 ea prednisone 20 mg tablet 40 mg (2 x 20 mg) PO DAILY #10 tabs 03/10/25 Unknown Rx Allergy/AdvReac Type Severity Reaction Status Date / Time trazodone Allergy Severe Jittery/Sha Verified 03/03/25 01:34 ky gabapentin Allergy Other Verified 03/03/25 01:34 Family History Other Adopted Family History adopted Surgical History Hx of mitral valve replacement with mechanical valve S/P PICC central line placement (06/15/24) History of angioplasty of peripheral vessel (08/28/21) History of tooth extraction, class IV edentulism (09/11/21) History of right and left heart catheterization (08/16/21) Mechanical complication of dialysis catheter History of herniorrhaphy Status post creation of arteriovenous fistula History of cardioversion (12/02/18) History of repair of congenital cleft palate History of left heart catheterization (09/17/18) history of cather replacement Social History household members: none Smoking Status: Never smoker alcohol intake: never substance use type: marijuana what type of physical activity do you participate in: none ROS ROS ED Constitutional Constitutional ED: Denies chills or fever(s) Eyes Eyes: Denies change in vision or diplopia ENT ENT ED: Denies rhinorrhea or sore throat Cardiovascular Cardiovascular: Reports chest pain; Denies palpitations Respiratory/Chest Respiratory/Chest: Reports cough and dyspnea; Denies sputum Gastrointestinal Gastrointestinal: Denies abdominal pain, diarrhea, nausea or vomiting Musculoskeletal Musculoskeletal: Denies back pain or neck pain Integumentary Reports wounds; Denies abscess or rash Neurologic Neurologic: Denies headache(s), paresthesias or weakness Psychiatric Psychiatric: Denies anxiety or suicidal thoughts Hematologic/Lymphatic Hematologic/Lymphatic: Reports easy bleeding and easy bruising EXAM Physical Exam Const Vital Signs: 03/21/25 23:18 03/21/25 23:23 03/21/25 23:48 Temperature 98.6 F Temperature Source Oral Pulse Rate 120 H Respiratory Rate 18 Respiratory Effort Normal Non-Labored Respiratory Depth Normal Respiratory Pattern Normal Blood Pressure 131/104 H Blood Pressure Mean 113 Pulse Ox 100 Oxygen Delivery Method Room Air Room Air Room Air 03/21/25 23:48 03/22/25 01:17 03/22/25 03:17 Temperature Temperature Source Pulse Rate 115 H 112 H Respiratory Rate 12 16 Respiratory Effort Respiratory Depth Respiratory Pattern Blood Pressure 90/59 L 95/59 L Blood Pressure Mean 69 71 Pulse Ox 95 97 97 Oxygen Delivery Method Room Air Room Air Room Air 03/22/25 04:17 03/22/25 04:26 03/22/25 06:00 Temperature Temperature Source Pulse Rate 100 101 H 105 H Respiratory Rate 16 21 H Respiratory Effort Respiratory Depth Respiratory Pattern Blood Pressure 112/65 112/65 112/65 Blood Pressure Mean 80 80 80 Pulse Ox 97 95 Oxygen Delivery Method Room Air Room Air Positive well nourished and well developed General Appearance ED: well developed and NAD HEENT Reports moist mucous membranes HEENT Narrative: Poor dentition normocephalic and atraumatic Eyes PERRL and EOMs intact bilaterally Neck full ROM and supple Resp normal respiratory effort and clear to auscultation bilaterally Resp Narrative: Conversive in full sentences without difficulty or limitation. Cardio regular rate and regular rhythm Cardio Narrative: Mild tachycardia. Systolic click. GI non-tender and non-distended Auscultation: normoactive bowel sounds Palpation: soft Back/Spine no CVA tenderness General Back: other FROM Extremity normal to inspection General Extremety ED: Negative for edema, pulses abnormal or tenderness General Extremity: Negative for edema or pulses abnormal Neuro oriented x3, CN's II-XII intact bilaterally and no sensory deficits noted Sensorium / Orientation: awake and alert Motor Exam: strength 5/5 throughout Skin no rashes or lesions noted Skin Narrative: Multiple wounds to left flank, back, all in various stages of healing without any obvious signs of infection or active discharge or bleeding. MDM MDM MDM Narrative Medical decision making narrative: During my exam patient's pressure is 90/40. He was more tachycardic when he first arrived around 120, currently his heart rate is around 105. I think he would benefit from another dose of midodrine as well as a bolus of some IV fluid, so 500 cc ordered. His labs are unremarkable including his electrolytes and his blood counts, he has chronic anemia and his blood counts are stable. Will on reevaluation after the fluids and midodrine, his blood pressure came up, we did not have another low reading, and his symptoms resolved. His initial troponin is elevated at 147, he has had numbers in this range in the past likely related to his ESRD, this was repeated it went up slightly to 152 for a delta of 5. This is likely insignificant, but a 4-hour third measurement was obtained to be sure that his symptoms are not cardiac given his history, risk, and complaints of chest pain. It came down to 149. Patient still doing well, blood pressure 112/65, stable for discharge home close outpatient follow-up. He states he has his midodrine now. Also his INR is only 1.6 and he has a mechanical heart valve so I am advising him to take an extra warfarin today. Lab Data Attestation: I reviewed the patient's lab results. Labs: Laboratory Results - last 24 hr 03/21/25 03/22/2503/22/25 23:50 01:24 03:28 WBC 8.8 RBC 3.35 L Hgb 9.8 L Hct 31.6 L MCV 94.3 H MCH 29.3 MCHC 31.0 L RDW Std Deviation 67.7 H RDW Coeff of Lance 21.9 H Plt Count 227 MPV 10.9 Immature Gran % (Auto) 0.700 Neut % (Auto) 73.4 H Lymph % (Auto) 10.6 L Starke % (Auto) 14.1 H Eos % (Auto) 0.9 Baso % (Auto) 0.3 Absolute Neuts (auto) 6.5 Absolute Lymphs (auto) 0.93 Nucleated RBC % 0.5 Differential Comment SCANNED Polychromasia RARE Hypochromasia 2+ Anisocytosis 2+ Microcytosis 1+ PT 19.8 H INR 1.6 Sodium 138 Potassium 4.5 Chloride 95 L Carbon Dioxide 23.1 Anion Gap 20 H BUN 37 H Creatinine 6.83 H Estim Creat Clear Calc 17.70 L Est GFR (MDRD) Non-Af 10 L BUN/Creatinine Ratio 5.4 L Glucose 86 Calcium 8.4 Troponin T High Sens 147 H* D Troponin T Hi Sens 2 Hr 152 H* Troponin T Hi Sens 4Hr 03/22/25 06:02 WBC RBC Hgb Hct MCV MCH MCHC RDW Std Deviation RDW Coeff of Lance Plt Count MPV Immature Gran % (Auto) Neut % (Auto) Lymph % (Auto) Starke % (Auto) Eos % (Auto) Baso % (Auto) Absolute Neuts (auto) Absolute Lymphs (auto) Nucleated RBC % Differential Comment Polychromasia Hypochromasia Anisocytosis Microcytosis PT INR Sodium Potassium Chloride Carbon Dioxide Anion Gap BUN Creatinine Estim Creat Clear Calc Est GFR (MDRD) Non-Af BUN/Creatinine Ratio Glucose Calcium Troponin T High Sens Troponin T Hi Sens 2 Hr Troponin T Hi Sens 4Hr 149 H* Rhythm Strip Rhythm Strip: Sinus Tach Rate: 105 Ectopy: None EKG Initial EKG: Attestation: I personally reviewed and interpreted this EKG as follows: Interpretation: No Acute Injury Pattern and Sinus Tachycardia Comments: poor R-wave progression Prior EKG tracings: available for review Prior: Unchanged Discharge Plan Triage Chief Complaint: Shortness of Breath ED Provider: Dmitriy Matos Dx/Rx/DC Orders Clinical Impression: Transient hypotension, Chest pain, unspecified, Acute dyspnea, ESRD on dialysis, Subtherapeutic international normalized ratio (INR) Instructions: ED Chest Pain, Noncardiac Prescriptions: No Action aspirin [Adult Aspirin Regimen] 81 mg tablet,delayed release (DR/EC) 81 mg PO DAILY levothyroxine 25 mcg tablet 25 mcg PO DAILY cinacalcet 60 mg tablet 90 mg PO DAILY Juju-Tashi 0.8 mg tablet 1 tab PO DAILY oxycodone 5 mg tablet 5 mg PO BID PRN (Reason: pain) midodrine 10 mg tablet 10 mg PO TID Qty: 90 3RF Velphoro 500 mg tablet,chewable 1,500 mg PO TIDCM Patient Comments: CRUSH OR CHEW AND SWALLOW 3 TABLETS 3 TIMES A DAY WITH MEALS prednisone 20 mg tablet 40 mg PO DAILY Qty: 10 0RF lidocaine 5 % adhesive patch,medicated 1 patch topical DAILY PRN PRN (Reason: pain, moderate) Qty: 30 0RF Rx Instructions: leave on most painful area for up to 12 hrs (DME) BP monitor large cuff See Rx Instructions .Route .MEDSUPPLY Qty: 1 0RF Rx Instructions: As directed warfarin 5 mg tablet 5 mg PO DAILY Qty: 90 3RF Protocol: Dose Management Condition: Friday Dose/Route: 5 mg Instruction: 1 x 5 mg tablet Condition: Friday Dose/Route: 2.5 mg Instruction: 0.5 x 5 mg tablets Condition: Friday Dose/Route: 2.5 mg Instruction: 0.5 x 5 mg tablets Condition: Friday Dose/Route: 2.5 mg Instruction: 0.5 x 5 mg tablets Condition: Dose/Route: 5 mg Instruction: 1 x 5 mg tablet Condition: Friday Dose/Route: 5 mg Instruction: 1 x 5 mg tablet Condition: Friday Dose/Route: 5 mg Instruction: 1 x 5 mg tablet Protocol Text: Adjustment Start Date: 03/17/25 INR Value: 2.1 INR Date: 03/17/25 Recheck Date: 03/24/25 Primary Care Provider: Care Physician,No 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 Print Language: [place] Islander Disposition Disposition: Home, Self Care
[2025-03-22] MEDS: Midodrine HCl 5 MG Tablet 10 MG PO (00:54)
[2025-03-22] MEDS: 0.9% Normal Saline (500mL Bag) 500 ML 999 ML IV (00:54)
[2025-03-22 01:17] VITALS: BP 90/59; PULSE 115; RESP 12; O2SAT 97
[2025-03-22 01:24] LABS: Anisocytosis 2+; Differential Comment SCANNED; Microcytosis 1+; Polychromasia RARE
[2025-03-22 01:25] LABS: Hypochromasia 2+
[2025-03-22 01:40] LABS: International Normalized Ratio 1.6; Prothrombin Time (Protime)PT. 19.8 SECONDS (11.7-14.9)
[2025-03-22 01:46] LABS: Troponin T High Sensitivity 147 ng/L (<=22)
[2025-03-22 03:17] VITALS: BP 95/59; PULSE 112; RESP 16; O2SAT 97
[2025-03-22 04:17] VITALS: BP 112/65; PULSE 100; RESP 16; O2SAT 97
[2025-03-22 04:26] VITALS: BP 112/65; PULSE 101
[2025-03-22 04:44] LABS: Troponin T High Sens 2 HR 152 ng/L (<=22)
[2025-03-22 06:00] VITALS: BP 112/65; PULSE 105; RESP 21; O2SAT 95
[2025-03-22 07:02] LABS: Troponin T High Sens 4 HR 149 ng/L (<=22)
[2025-03-22 07:37] VITALS: BP 112/55; PULSE 105; RESP 16; TEMP 36.6; O2SAT 97
== END 2025-03-22 07:39 | disposition home or self-care (01) ==
PROVIDERS: Emergency Provider Emergency Medicine; Visit Provider Emergency Medicine
DX: I95.9 Hypotension, unspecified (principal); I12.0 Hypertensive chronic kidney disease with stage 5 chronic kidney disease or end stage renal disease; N18.6 End stage renal disease; I48.0 Paroxysmal atrial fibrillation; R07.9 Chest pain, unspecified; R79.1 Abnormal coagulation profile; R06.00 Dyspnea, unspecified; I25.2 Old myocardial infarction; I34.2 Nonrheumatic mitral (valve) stenosis; I34.0 Nonrheumatic mitral (valve) insufficiency; Z99.2 Dependence on renal dialysis; N25.81 Secondary hyperparathyroidism of renal origin; D63.1 Anemia in chronic kidney disease; G47.33 Obstructive sleep apnea (adult) (pediatric); Z95.2 Presence of prosthetic heart valve; Z79.82 Long term (current) use of aspirin; Z79.01 Long term (current) use of 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s; Z86.711 Personal history of pulmonary embolism; Z86.718 Personal history of other venous thrombosis and embolism; Z79.890 Hormone replacement therapy; Z79.899 Other long term (current) drug therapy
CPT/HCPCS: 80048; 84484; 85025; 85610; 93005; 96360; 96361; 99284; A4216

== ENCOUNTER 2025-04-06 16:53 | Inpatient (IN) | payer MEDICARE, SELFPAY ==
[2025-04-06] VITALS (8 sets, daily range): BP systolic 84–106; BP diastolic 50–64; PULSE 104–116; RESP 16–19; TEMP 36.5–36.8; O2SAT 93–99; BMI 39.4
--- NOTE | 2025-04-06 17:15 | RAD_ITS ---
PROCEDURE: CHEST 1 VIEW (PORTABLE) 04/06/2025 REASON FOR EXAM: CHEST PAIN TECHNIQUE: Frontal view of the chest. COMPARISON: 03/02/2025 FINDINGS: Devices: Right IJ approach tunneled dialysis catheter. Tip at the right atrium. Lungs/Pleura: Mild perihilar alveolar and interstitial pulmonary edema. No sizable pleural effusion. No pneumothorax. Pulmonary vascular congestion. Heart/Mediastinum: Cardiomegaly. Midline sternotomy wires, probable aortic valve annuloplasty and left atrial appendage occlusion clip hardware. Bones/Soft tissues: Moderate dextroscoliosis of the thoracic spine. Chronic osseous deformity of bilateral glenohumeral joints and humeral heads with inferior subluxation. RAD/Chest 1 View (Portable) IMPRESSION: Mild cardiomegaly with vascular congestion and pulmonary edema. No sizable ple ural effusion. Reading Location: [id number]
--- NOTE | 2025-04-06 17:15 | RAD_ITS ---
PROCEDURE: CHEST 1 VIEW (PORTABLE) 04/06/2025 REASON FOR EXAM: CHEST PAIN TECHNIQUE: Frontal view of the chest. COMPARISON: 03/02/2025 FINDINGS: Devices: Right IJ approach tunneled dialysis catheter. Tip at the right atrium. Lungs/Pleura: Mild perihilar alveolar and interstitial pulmonary edema. No sizable pleural effusion. No pneumothorax. Pulmonary vascular congestion. Heart/Mediastinum: Cardiomegaly. Midline sternotomy wires, probable aortic valve annuloplasty and left atrial appendage occlusion clip hardware. Bones/Soft tissues: Moderate dextroscoliosis of the thoracic spine. Chronic osseous deformity of bilateral glenohumeral joints and humeral heads with inferior subluxation. RAD/Chest 1 View (Portable) IMPRESSION: Mild cardiomegaly with vascular congestion and pulmonary edema. No sizable ple ural effusion. Reading Location: [id number]
--- NOTE | 2025-04-06 18:21 | ED.RN ---
pt. requesting a break from IV attempted. Pt. educated that the longer we wait to get blood work the longer it could delay care of a critical condition. Pt. verbalizes understanding and continues to request a break. Pt. also requested to bring legs up in bed as he appears to be falling asleep while sitting at side of bed. Pt. states he wants to sit at side of bed.
--- NOTE | 2025-04-06 18:59 | CM.ED ---
Social Work Reason for visit: No PCP Patient verified that he does not currently have a PCP. [facility] provider list given. No further needs identified at this time. Mickie Borrego, CARGO INSPECTOR, PORTABLE MACHINE SANDER
--- NOTE | 2025-04-06 18:59 | CM.ED ---
Social Work Reason for visit: No PCP Patient verified that he does not currently have a PCP. [facility] provider list given. No further needs identified at this time. Mickie Borrego, BOTTLER HELPER, CAFE ASSOCIATE
[2025-04-06 19:11] LABS: Hematocrit 35.0 % (40-54); Hemoglobin 10.5 g/dL (13.0-16.5); Immature Granulocytes Count 0.030 X10^3/uL (0.0-0.0); Mean Corp Hgb Conc 30.0 g/dL (32-36); Mean Corpuscular Volume 94.6 fL (80-94); Mean Platelet Vol. 10.6 fl (6.2-12.0); NRBC Flagged by Analyzer 0 % (0-5); POSITIVE MORPHOLOGY YES; Platelet Count 256 K/mm3 (150-450); RBC Distribution Width CV 20.3 % (11.6-14.6); RBC Distribution Width SD 70.1 fl (35.1-43.9); Red Blood Count 3.70 M/mm3 (4.6-6.2); White Blood Count 5.6 K/mm3 (4.4-11.0)
[2025-04-06 19:17] LABS: Differential Indicated SCAN CRITERIA MET
--- NOTE | 2025-04-06 19:19 | EX.ED.DYSGE1 ---
HPI History of Present Illness Chief Complaint: Chest Pain Detail of Chief Complaint: Central chest pain described as sharp Informant: patient Onset/Context/Timing Onset: Days (Onset Friday) Context: Sudden Onset Timing: Continuous Location: Central chest pain Current Severity: Moderate Maximum Severity: Severe Worsened by: Movement, palpation Relieved by: Nothing Associated Symptoms Associated Symptoms: Lightheadedness Narrative Narrative: Patient is a 45-year-old male. He has multiple medical problems which include atrial fibs flutter, nonrheumatic valvular heart disease, non-ST elevation NC October 2019, central retinal artery occlusion left eye September 2020, long-term 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 use (Coumadin), dialysis catheter, anemia due to chronic kidney disease, secondary renal hyperparathyroidism who presents with sharp central chest pain that started April 02. There is no radiation. There is no associated symptoms. 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) Anemia in chronic kidney disease Dyspnea Secondary renal hyperparathyroidism Abdominal wall cellulitis Thrombosis of kidney dialysis arteriovenous graft COVID-19 virus detected (10/02/21) Dental caries Dialysis AV fistula malfunction Postoperative complete heart block (08/21/21) Hypotension of hemodialysis Pain of right lower extremity Medication side effects Chronic ulcer of back Sepsis Non-healing non-surgical wound Daily headache rn long term care current use of 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 Mitral valve annular calcification Central retinal artery occlusion of left eye (10/09/20) History of non-ST elevation myocardial infarction (NSTEMI) (11/08/19) 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 History of bacterial endocarditis Mechanical complication of arteriovenous fistula surgically created Obstructive sleep apnea Non compliance w medication regimen Nonrheumatic mitral valve stenosis with insufficiency 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) Atrial flutter with rapid ventricular response (07/2020) Essential (primary) hypertension History of venous thromboembolism History of pulmonary embolus (PE) Bilateral carotid artery stenosis Paroxysmal atrial fibrillation (06/10/20) Unspecified symptoms and signs involving cognitive functions and awareness (04/05/20) 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) Expressive aphasia (04/05/20) ESRD on hemodialysis Dialysis patient Chronic kidney disease-mineral and bone disorder Chronic pelvic pain in male Pelvic mass Hematuria History of blood clots Hearing loss 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 due to renal insufficiency Morbidly obese Home Medications ?Medication ?Instructions ?Recorded ?Last Taken ?Type BP monitor #1 ea 07/17/21 Unknown Rx aspirin 81 mg tablet,delayed 81 mg PO DAILY heart health 10/29/21 02/24/25 History release (Adult Aspirin Regimen) sucroferric oxyhydroxide 500 mg 1,500 mg PO TIDCM phosphate binder 11/11/23 03/01/25 History chewable tablet (Velphoro) warfarin 5 mg tablet 5 mg PO DAILY blood thinner #90 05/07/24 03/01/25 Rx tabs cinacalcet 60 mg tablet 90 mg PO DAILY hormones 07/30/24 03/02/25 History levothyroxine 25 mcg tablet 25 mcg PO DAILY disorder of 07/30/24 03/02/25 History thyroid gland vitamin B complex-vitamin C-folic 1 tab PO DAILY vitamin 07/30/24 02/21/25 History acid 0.8 mg tablet (Juju-Tashi) midodrine 10 mg tablet 10 mg PO TID blood pressure #90 03/01/25 02/28/25 Rx tabs oxycodone 5 mg tablet 5 mg PO BID PRN pain 03/01/25 03/01/25 History lidocaine 5 % topical patch 1 patch topical DAILY PRN PRN 03/10/25 Unknown Rx pain, moderate #30 ea prednisone 20 mg tablet 40 mg (2 x 20 mg) PO DAILY #10 tabs 03/10/25 Unknown Rx Allergy/AdvReac Type Severity Reaction Status Date / Time trazodone Allergy Severe Jittery/Sha Verified 04/06/25 16:56 ky gabapentin Allergy Other Verified 04/06/25 16:56 Family History Other Adopted Surgical History Hx of mitral valve replacement with mechanical valve S/P PICC central line placement (06/15/24) History of angioplasty of peripheral vessel (08/28/21) History of tooth extraction, class IV edentulism (09/11/21) History of right and left heart catheterization (08/16/21) Mechanical complication of dialysis catheter History of herniorrhaphy Status post creation of arteriovenous fistula History of cardioversion (12/02/18) History of repair of congenital cleft palate History of left heart catheterization (09/17/18) history of cather replacement Social History household members: none Smoking Status: Never smoker alcohol intake: never substance use type: marijuana what type of physical activity do you participate in: none ROS ROS ED Constitutional Constitutional ED: Denies chills, fever(s), subjective, sweats or weight loss Eyes Eyes: Reports other Details: Blindness left eye ; Denies blurry vision or change in vision ENT ENT ED: Denies ear pain or rhinorrhea Cardiovascular Cardiovascular: Denies chest pain, palpitations or racing heartbeat Respiratory/Chest Respiratory/Chest: Denies cough, dyspnea or dyspnea on exertion Gastrointestinal Gastrointestinal: Reports abdominal pain; Denies constipation, diarrhea or vomiting Genitourinary Genitourinary ED: Reports other Details: Hemodialysis Musculoskeletal Musculoskeletal: Denies arthralgias or myalgias Integumentary Denies rash Psychiatric Psychiatric: Denies anxiety or depression Endocrine Endocrinology: Denies cold intolerance or heat intolerance Hematologic/Lymphatic Hematologic/Lymphatic: Reports systems reviewed and no addt'l complaints, except as documented and easy bruising EXAM Physical Exam Const Vital Signs: 04/06/25 16:54 04/06/25 17:43 04/06/25 17:43 Temperature 97.7 F L 98 F Temperature Source Temporal Oral Pulse Rate 116 H 116 H Respiratory Rate 16 18 Respiratory Effort Normal Non-Labored Blood Pressure 84/64 L 99/62 Blood Pressure Mean 70 74 Pulse Ox 98 98 Oxygen Delivery Method Room Air Room Air 04/06/25 18:00 04/06/25 19:00 04/06/25 20:00 Temperature 98.3 F 97.9 F 98.3 F Temperature Source Oral Temporal Oral Pulse Rate 110 H 105 H 115 H Respiratory Rate 18 16 17 Respiratory Effort Blood Pressure 91/56 L 85/60 L 92/50 L Blood Pressure Mean 67 68 64 Pulse Ox 96 94 98 Oxygen Delivery Method Room Air Room Air Room Air 04/06/25 21:00 04/06/25 22:03 04/06/25 23:35 Temperature Temperature Source Pulse Rate 112 H 104 H 107 H Respiratory Rate 18 19 H 16 Respiratory Effort Blood Pressure 90/59 L 104/62 106/63 Blood Pressure Mean 69 76 77 Pulse Ox 99 94 93 Oxygen Delivery Method Room Air Room Air Positive well nourished and well developed Constitutional Narrative: Initial blood pressure was low and he was tachycardic. General Appearance ED: well developed; Negative for cyanotic or diaphoretic HEENT Reports moist mucous membranes HEENT Narrative: Patient has poor dentition. Eyes PERRL and EOMs intact bilaterally General Eye ED: Yes pale conjunctiva Neck no lymphadenopathy and supple Chest Wall Negative for inspection of chest normal or palpation of chest normal Chest Narrative: Patient is abnormality because of the abnormal vessels of his chest wall; this is chronic. Resp normal respiratory effort and clear to auscultation bilaterally Cardio regular rhythm, S1 normal heart sound, S2 normal heart sound and no murmurs Rate: tachycardic GI no masses; Negative for normal to inspection, nondistended, normoactive bowel sounds, non-tender, non-distended or hepatosplenomegaly Inspection: Negative for abdominal distention Auscultation: normoactive bowel sounds Palpation: soft and tender other (Patient has abdominal wall tenderness. Lobe no) Extremity Negative for normal to inspection General Extremety ED: Yes edema General Extremity: edema Neuro oriented x3, CN's II-XII intact bilaterally and no sensory deficits noted Sensorium / Orientation: alert Psych Mood & Affect: depressed Skin No no rashes or lesions noted and No no wounds Sepsis Attestation Sepsis Attestation: Sepsis Ruled Out Date exam was performed: 04/06/25 Time exam was performed: 17:10 MDM MDM MDM Narrative Medical decision making narrative: Patient with multiple medical problems. Need to rule out acute non-ST elevation NC. He is hypotensive. Will compare to prior blood pressure readings. CBC was obtained to determine if he has had acute blood loss to assess his H&H. Electrolyte panel was obtained to determine if he has hyperkalemia if, if he is uremic. Because he reports bruising easily on Coumadin PT/INR was obtained. History & Record Review Additional record(s) reviewed:: Prior ED visit (ER visit from February 2020 was reviewed. Patient has labile blood pressure readings. He has had blood pressure as high as 131 and as low as 90. This is similar to his blood pressure readings documented today.) and Other (Patient was hypertensive prior visit may 2024. He was seen by Dr. Linn at that time. He was seen by me in December and hypertension.) Lab Data Attestation: I reviewed the patient's lab results. Lab results narrative: Patient has anemia. This is chronic. INR is elevated at 6.4. Electrolyte panel Veals anion gap of 18. BUN and creatinine are 21 and 5.74. Patient is on hemodialysis. Lactate is elevated 2.5. He has had chronic elevated lactate levels. This is probably due to his renal failure and hypotension. His troponins are elevated. They are always elevated. Delta is -6. Labs: Laboratory Results - last 24 hr 04/06/25 04/06/25 18:50 21:30 WBC 5.6 RBC 3.70 L Hgb 10.5 L Hct 35.0 L MCV 94.6 H MCH 28.4 MCHC 30.0 L RDW Std Deviation 70.1 H RDW Coeff of Lance 20.3 H Plt Count 256 MPV 10.6 Immature Gran % (Auto) 0.500 Neut % (Auto) 63.0 Lymph % (Auto) 15.6 L [place] % (Auto) 19.2 H Eos % (Auto) 1.3 Baso % (Auto) 0.4 Absolute Neuts (auto) 3.5 Absolute Lymphs (auto) 0.87 Nucleated RBC % 0 Differential Comment SCANNED Platelet Estimate ADEQUATE Polychromasia 1+ Hypochromasia 1+ Anisocytosis 2+ PT 58.1 H INR 6.4 H* Sodium 137 Potassium 4.4 Chloride 93 L Carbon Dioxide 26.1 Anion Gap 18 H BUN 21 H Creatinine 5.74 H Est GFR (MDRD) Non-Af 12 L BUN/Creatinine Ratio 3.6 L Glucose 96 Lactic Acid 2.5 H* Calcium 9.1 Total Bilirubin 0.56 AST 31 ALT 21 Alkaline Phosphatase 170 H Troponin T High Sens 151 H* Troponin T Hi Sens 2 Hr 145 H* Total Protein 9.0 H Albumin 4.0 Globulin 5.0 H Albumin/Globulin Ratio 0.8 L Radiography Chest X-Ray - ED: 2 View and Read by ED Physician (There is evidence of mild cardiomegaly. Cardiac silhouette is unremarkable. There is some cephalization. There is no effusion. There is no infiltrate. Zooms pneumothorax. Osseous structures reveal chronic changes. Dialysis catheter noted on the right.) Diagnostic Testing: Clinical Impression(s) from Imaging Studies Chest X-Ray 04/06/25 17:15 IMPRESSION: Mild cardiomegaly with vascular congestion and pulmonary edema. No sizable pleural effusion. Reading Location: [id number] Management Discussion w/another healthcare provider: Hospitalist (Case discussed with Dr. Brumfield. Full admission PCU) Treatment and Re-Evaluation :: Because patient is hypotensive with renal failure will order a 500 cc bolus of normal saline and evaluate his response. Patient's blood pressure is 90 5:03 100 cc bolus. Hospitalist was paged for admission. Discharge Plan Dx/Rx/DC Orders Clinical Impression: Acute hypotension, Chest pain, End-stage renal disease on hemodialysis, Warfarin-induced coagulopathy, Sinus tachycardia by electrocardiogram, Acidosis, lactic, First degree AV block Disposition Disposition: Acute Care Hospital [facility]
[2025-04-06 19:29] LABS: Prothrombin Time (Protime)PT. 58.1 SECONDS (11.7-14.9)
[2025-04-06 20:08] LABS: Differential Comment SCANNED
[2025-04-06 20:09] LABS: Anisocytosis 2+; Hypochromasia 1+; Polychromasia 1+
[2025-04-06 20:39] LABS: AST(SGOT) 31 U/L (<=37); Alanine Aminotransfer ALT/SGPT 21 U/L (<=46); Albumin, Serum 4.0 g/dL (3.5-5.0); Alkaline Phosphatase 170 U/L (40-129); Anion Gap 18 (5-15); BUN 21 mg/dL (4-19); BUN/Creat Ratio 3.6 RATIO (10-20); Calcium,Total 9.1 mg/dL (7.6-11.0); Carbon Dioxide 26.1 mmol/L (21.0-32.0); Chloride 93 mmol/L (98-108); Globulin 5.0 g/dL (2.2-4.2); Glucose 96 mg/dL (70-99); Potassium 4.4 mmol/L (3.3-5.1)
[2025-04-06 21:11] LABS: Troponin T High Sensitivity 151 ng/L (<=22)
[2025-04-06 22:12] LABS: Troponin T High Sens 2 HR 145 ng/L (<=22)
[2025-04-06 22:54] LABS: Reflex Lactate? Y
[2025-04-06] MEDS: 0.9% Normal Saline (500mL Bag) 500 ML 1000 ML IV (23:29)
--- NOTE | 2025-04-06 23:45 | HP.PCM.HOS_ITS ---
HPI - General General Date of Admission: 04/06/25 Date of Service: 04/06/25 Chief Complaint: Chest pain HPI Narrative REJI SPAIN, is a 45 M who presented to [facility] ED on 04/06/2025 with chest pain. Patient has been hospitalized here multiple times in the past. Medical history significant for ESRD on HD and A-fib/flutter and mitral valve replacement on Coumadin. Was last hospitalized here in early February for suspected gout flare of the right shoulder. He is on dialysis Friday and last session was on 04/06. He presented with worsening chest pain this evening. Medical history is also significant for chronic pain on oxycodone. Troponin trend 151 > 145 > 147. No concerning EKG changes noted. Chest x-ray showed mild volume overload similar to previous chest x-rays. Lab workup also notable for lactate 2.5 and INR 6.4. Hemoglobin stable at baseline around 10 and no signs of active bleeding noted. Patient was hypotensive to the 90s systolic and on chart review usually is hypertensive. He was given a 500 cc bolus of IV fluids but continued to report chest pain and only had mild improvement in blood pressure. For this reason, hospitalist was contacted for admission. I saw the patient at bedside in the ED. Patient was reporting ongoing chest discomfort. He denies any palpitations. Denies any shortness of breath. Denies any other acute concerns currently. Will be admitted for further management. 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) Anemia in chronic kidney disease Dyspnea Secondary renal hyperparathyroidism Abdominal wall cellulitis Thrombosis of kidney dialysis arteriovenous graft COVID-19 virus detected (10/02/21) Dental caries Dialysis AV fistula malfunction Postoperative complete heart block (08/21/21) Hypotension of hemodialysis Pain of right lower extremity Medication side effects Chronic ulcer of back Sepsis Non-healing non-surgical wound Daily headache group home current use of 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 Mitral valve annular calcification Central retinal artery occlusion of left eye (10/09/20) History of non-ST elevation myocardial infarction (NSTEMI) (11/08/19) 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 History of bacterial endocarditis Mechanical complication of arteriovenous fistula surgically created Obstructive sleep apnea Non compliance w medication regimen Nonrheumatic mitral valve stenosis with insufficiency 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) Atrial flutter with rapid ventricular response (07/2020) Essential (primary) hypertension History of venous thromboembolism History of pulmonary embolus (PE) Bilateral carotid artery stenosis Paroxysmal atrial fibrillation (06/10/20) Unspecified symptoms and signs involving cognitive functions and awareness (04/05/20) 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) Expressive aphasia (04/05/20) ESRD on hemodialysis Dialysis patient Chronic kidney disease-mineral and bone disorder Chronic pelvic pain in male Pelvic mass Hematuria History of blood clots Hearing loss 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 due to renal insufficiency Morbidly obese Home Medications ?Medication ?Instructions ?Recorded ?Last Taken ?Type BP monitor #1 ea 07/17/21 Unknown Rx aspirin 81 mg tablet,delayed 81 mg PO DAILY heart heal th 10/29/21 02/24/25 History release (Adult Aspirin Regimen) sucroferric oxyhydroxide 500 mg 1,500 mg PO TIDCM phos phate binder 11/11/23 04/06/25 History chewable tablet (Velphoro) warfarin 5 mg tablet 5 mg PO DAILY blood thinner #90 05/07/24 04/05/25 Rx tabs cinacalcet 60 mg tablet 90 mg PO DAILY hormones 10/2203/02/25 History levothyroxine 25 mcg tablet 25 mcg PO DAILY disorder o f 07/30/24 04/07/25 History thyroid gland vitamin B complex-vitamin C-folic 1 tab PO DAILY vitam in 07/30/24 04/07/25 History acid 0.8 mg tablet (Juju-Tashi) midodrine 10 mg tablet 10 mg PO TID blood pressure #90 03/01/25 02/28/25 Rx tabs oxycodone 5 mg tablet 5 mg PO BID PRN pain 03/01/ 5 04/06/25 History lidocaine 5 % topical patch 1 patch topical DAILY PRN PRN 03/10/25 Unknown Rx pain, moderate #30 ea prednisone 20 mg tablet 40 mg (2 x 20 mg) PO DAILY # 10 tabs 03/10/25 Unknown Rx Held on 04/07/25. Instructions: ran out Allergy/AdvReac Type Severity Reaction Status Date / Time trazodone Allergy Severe Jittery/Sha Verified 04/06/25 16:56 ky gabapentin Allergy Other Verified 04/06/25 16:56 Family History Other Adopted Surgical History Hx of mitral valve replacement with mechanical valve S/P PICC central line placement (06/15/24) History of angioplasty of peripheral vessel (08/28/21) History of tooth extraction, class IV edentulism (09/11/21) History of right and left heart catheterization (08/16/21) Mechanical complication of dialysis catheter History of herniorrhaphy Status post creation of arteriovenous fistula History of cardioversion (12/02/18) History of repair of congenital cleft palate History of left heart catheterization (09/17/18) history of cather replacement Social History household members: none Smoking Status: Never smoker alcohol intake: never substance use type: marijuana what type of physical activity do you participate in: none ROS Constitutional Constitutional: Reports fatigue; Denies chills, fever(s) or weakness Eyes Eyes: Denies change in vision Cardiovascular Cardiovascular: Reports chest pain; Denies dyspnea on exertion, edema, lightheadedness or palpitations Respiratory/Chest Respiratory/Chest: Denies cough or shortness of breath at rest Gastrointestinal Gastrointestinal: Denies abdominal pain Musculoskeletal Musculoskeletal: Denies arthralgias or myalgias Vital Signs Vital Signs Vital Signs: 04/06/25 16:54 04/06/25 17:43 04/06/25 17:43 Temperature 97.7 F L 98 F Temperature Source Temporal Oral Pulse Rate 116 H 116 H Respiratory Rate 16 18 Respiratory Effort Normal Non-Labored Blood Pressure 84/64 L 99/62 Blood Pressure Mean 70 74 Pulse Ox 98 98 Oxygen Delivery Method Room Air Room Air 04/06/25 18:00 04/06/25 19:00 04/06/25 20:00 Temperature 98.3 F 97.9 F 98.3 F Temperature Source Oral Temporal Oral Pulse Rate 110 H 105 H 115 H Respiratory Rate 18 16 17 Respiratory Effort Blood Pressure 91/56 L 85/60 L 92/50 L Blood Pressure Mean 67 68 64 Pulse Ox 96 94 98 Oxygen Delivery Method Room Air Room Air Room Air 04/06/25 21:00 04/06/25 22:03 04/06/25 23:35 Temperature Temperature Source Pulse Rate 112 H 104 H 107 H Respiratory Rate 18 19 H 16 Respiratory Effort Blood Pressure 90/59 L 104/62 106/63 Blood Pressure Mean 69 76 77 Pulse Ox 99 94 93 Oxygen Delivery Method Room Air Room Air Physical Exam Const alert, oriented x3 and no apparent distress Constitutional Narrative: Middle-age male, appears older than stated age, class II obesity, mildly fatigued appearing, otherwise laying back in bed and answering questions appropriately. General Appearance: cooperative and comfortable HEENT normocephalic, head/scalp atraumatic, hearing grossly normal bilaterally, nasal mucous membranes and turbinates normal and moist oral mucous membranes Eyes PERRL, EOMs intact bilaterally and conjunctivae normal Neck full ROM Chest inspection of chest normal Resp normal respiratory effort and no use of accessory muscles Resp Narrative: Breathing comfortably on 2 L nasal cannula at rest. Diminished breath sounds bilaterally with mild crackles in mid lung zones noted. No wheezing noted. Cardio regular rate, regular rhythm, no murmurs and peripheral pulses 2+ throughout GI normal to inspection, nondistended, normoactive bowel sounds, soft to palpation, non-tender and non-distended Back/Spine normal ROM Extremity full ROM Extremity Narrative: +1-2 lower extremity pitting edema noted. Skin no rashes or lesions noted Psych mental status grossly normal Results Lab / Micro Data 04/07/25 02:12 04/07/25 02:12 Labs: Laboratory Results - last 24 hr 04/06/25 18:50: WBC 5.6, RBC 3.70 L, Hgb 10.5 L, Hct 35.0 L, MCV 94.6 H, MCH 28.4, MCHC 30.0 L, RDW Std Deviation 70.1 H, RDW Coeff of Lance 20.3 H, Plt Count 256, MPV 10.6, Immature Gran % (Auto) 0.500, Neut % (Auto) 63.0, Lymph % (Auto) 15.6 L, [place] % (Auto) 19.2 H, Eos % (Auto) 1.3, Baso % (Auto) 0.4, Absolute Neuts (auto) 3.5, Absolute Lymphs (auto) 0.87, Nucleated RBC % 0, Differential Comment SCANNED, Platelet Estimate ADEQUATE, Polychromasia 1+, Hypochromasia 1+, Anisocytosis 2+, PT 58.1 H, INR 6.4 H*, Sodium 137, Potassium 4.4, Chloride 93 L , Carbon Dioxide 26.1, Anion Gap 18 H, BUN 21 H, Creatinine 5.74 H, Est GFR (MDRD) Non-Af 12 L, BUN/Creatinine Ratio 3.6 L, Glucose 96, Lactic Acid 2.5 H*, Calcium 9.1, Total Bilirubin 0.56, AST 31, ALT 21, Alkaline Phosphatase 170 H, T roponin T High Sens 151 H*, Total Protein 9.0 H, Albumin 4.0, Globulin 5.0 H, A lbumin/Globulin Ratio 0.8 L 04/06/25 21:30: Troponin T Hi Sens 2 Hr 145 H* Imaging Radiology Impression Chest X-Ray 04/06/25 17:15 IMPRESSION: Mild cardiomegaly with vascular congestion and pulmonary edema. No sizable pleural effusion. Reading Location: [id number] Assessment & Plan Assessment/Plan (1) Chest pain: (2) Acute hypotension: (3) End-stage renal disease on hemodialysis: PLAN: Plan Patient is a 45-year-old male who presented to [facility] ED on 04/06/2025 with chest pain. 1. Chest pain ? Admit under inpatient status to PCU. EKG with no ST changes noted. Troponin trend 151 > 145 > 147. Chest x-ray with mild volume overload, otherwise stable from previous. Recent echo on 03/03 showed EF 65%, stable appearing mechanical mitral valve apparatus, no other concerning findings. Low concern for ACS at this time. Suspect pain is related to chronic pain syndrome and possibly worsened slightly by hypotension as below. Continue home aspirin. No need for further workup at this time. 2. ESRD on HD with mild hypotension and elevated lactic acid ? Nephrology consulted. On HD Friday, last session on 04/06. Suspect hypotension and elevated lactic acid are primarily due to volume depletion. Given maintenance IV fluids back on admit for 1.25 L total. Monitor blood pressure. Continue home midodrine. Appreciate further nephrology recommendations. 3. Paroxysmal A-fib/flutter and history of mitral valve replacement on Coumadin with supratherapeutic INR ? INR 6.4 on admit. No active signs of bleeding noted and hemoglobin stable at baseline of 10. Goal INR 2.5-3.5 for mitral replacement. Will opt to hold home Coumadin but not treat with vitamin K. Trend daily INR. Chronic medical conditions: ? Class II obesity: BMI 37 on admit. Complicates hospital course, care and prognosis. ? Hypothyroidism: Continue home Synthroid. ? Chronic pain syndrome: Continue home oxycodone twice daily as needed. ? Chronic anemia: Hemoglobin stable at baseline 10. DVT prophylaxis: Warfarin held as above for supratherapeutic INR CODE STATUS: Full code, verified Expected disposition: Home, TBD Total clinical time spent by myself addressing the patient's medical issues, reviewing all the data, and collaborating with patient's care team: 75 minutes. Charges/Coding Visit Charges Inpatient E&M: 87493 Init Hosp L3
[2025-04-07] VITALS (7 sets, daily range): BP systolic 94–124; BP diastolic 51–68; PULSE 95–110; RESP 16–22; TEMP 36.1–36.9; O2SAT 94–100; BMI 37.1
[2025-04-07] MEDS: HYDROcodone Bitartrate/Apap 5/325 Tablet PO (00:14)
[2025-04-07] MEDS: 0.9% Saline Lock 10 ML Syringe IV (02:03)
[2025-04-07] MEDS: Lactated Ringers 1,000 ML 150 ML IV (02:03)
[2025-04-07 02:26] LABS: Hematocrit 32.5 % (40-54); Hemoglobin 10.0 g/dL (13.0-16.5); Mean Corp Hgb Conc 30.8 g/dL (32-36); Mean Corpuscular Volume 94.8 fL (80-94); Mean Platelet Vol. 10.5 fl (6.2-12.0); POSITIVE MORPHOLOGY YES; Platelet Count 260 K/mm3 (150-450); RBC Distribution Width CV 20.3 % (11.6-14.6); RBC Distribution Width SD 69.7 fl (35.1-43.9); Red Blood Count 3.43 M/mm3 (4.6-6.2); White Blood Count 5.6 K/mm3 (4.4-11.0)
[2025-04-07 02:31] LABS: Scan Indicated on CBC? Y/N YES- FLAGS NOTED
[2025-04-07 02:59] LABS: Troponin T High Sens 4 HR 147 ng/L (<=22)
[2025-04-07 03:00] LABS: Prothrombin Time (Protime)PT. 54.4 SECONDS (11.7-14.9)
[2025-04-07 03:08] LABS: Anion Gap 22 (5-15); BUN 25 mg/dL (4-19); BUN/Creat Ratio 4.0 RATIO (10-20); Calcium,Total 8.8 mg/dL (7.6-11.0); Carbon Dioxide 18.8 mmol/L (21.0-32.0); Chloride 93 mmol/L (98-108); Estimated Creatinine Clearance 19.75 ml/min (50-250); Glucose 101 mg/dL (70-99); Potassium 4.2 mmol/L (3.3-5.1)
--- NOTE | 2025-04-07 07:11 | PN.HOSP_ITS ---
Reason for Visit Reason for Visit: Diagnoses Hypotension, unspecified (04/06/25) End stage renal disease (04/06/25) Chest pain, unspecified (04/06/25) Dependence on renal dialysis (04/06/25) Subjective Subjective Patient with no obvious acute events overnight with stable labs compared to his baseline and anterior chest as well as back wound is not infected appearing following with wound care who evaluated inpatient. Patient is stating 10 out of 10 severe pain to his thorax which is reproducible with very gentle palpation and is frequently breaking out into tears requesting specifically IV pain medication. Patient similar behavior during previous admissions requesting frequently specific pain medication. Given patient complaint of chest pain beyond his normal chronic chest pain a CT of the chest was obtained and noted to be normal aside from mild left-sided lymphadenopathy. Patient denies fevers, chills, nausea, emesis, abdominal pain, dyspnea. Objective Data Objective Data Vital Signs: Vital Signs Temp Pulse Resp BP Pulse Ox O2 Del Method O2 Flow Rate 96.9 F L 102 H 17 106/54 L 97 Nasal Cannula 2 04/07/25 07:06 04/07/25 07:06 04/07/25 07:06 04/07/25 07:06 04/07/25 07:06 04/07/25 07:06 04/07/25 07:06 Oxygen Flow Rate (L/min) 2 Oxygen Delivery Method Nasal Cannula Weight: 258 lb 13.163 oz Body Mass Index (BMI) 37.1 Intake & Output: Intake and Output for Last 24 Hours 04/05/25 04/06/25 04/07/25 23:59 23:59 23:59 Intake Total 750 / 750 Balance 750 / 750 Lab / Micro Data 04/07/25 02:12 04/07/25 02:12 Labs: Laboratory Results - last 24 hr 04/06/25 18:50: WBC 5.6, RBC 3.70 L, Hgb 10.5 L, Hct 35.0 L, MCV 94.6 H, MCH 28.4, MCHC 30.0 L, RDW Std Deviation 70.1 H, RDW Coeff of Lance 20.3 H, Plt Count 256, MPV 10.6, Immature Gran % (Auto) 0.500, Neut % (Auto) 63.0, Lymph % (Auto) 15.6 L, [place] % (Auto) 19.2 H, Eos % (Auto) 1.3, Baso % (Auto) 0.4, Absolute Neuts (auto) 3.5, Absolute Lymphs (auto) 0.87, Nucleated RBC % 0, Differential Comment SCANNED, Platelet Estimate ADEQUATE, Polychromasia 1+, Hypochromasia 1+, Anisocytosis 2+, PT 58.1 H, INR 6.4 H*, Sodium 137, Potassium 4.4, Chloride 93 L , Carbon Dioxide 26.1, Anion Gap 18 H, BUN 21 H, Creatinine 5.74 H, Est GFR (MDRD) Non-Af 12 L, BUN/Creatinine Ratio 3.6 L, Glucose 96, Lactic Acid 2.5 H*, Calcium 9.1, Total Bilirubin 0.56, AST 31, ALT 21, Alkaline Phosphatase 170 H, T roponin T High Sens 151 H*, Total Protein 9.0 H, Albumin 4.0, Globulin 5.0 H, A lbumin/Globulin Ratio 0.8 L 04/06/25 21:30: Troponin T Hi Sens 2 Hr 145 H* 04/06/25 23:22: Lactic Acid 2.0 04/07/25 02:12: WBC 5.6, RBC 3.43 L, Hgb 10.0 L, Hct 32.5 L, MCV 94.8 H, MCH 29.2, MCHC 30.8 L, RDW Std Deviation 69.7 H, RDW Coeff of Lance 20.3 H, Plt Count 260, MPV 10.5, Differential Comment , PT 54.4 H, INR 5.9 H*, Sodium 134, Potassium 4.2, Chloride 93 L, Carbon Dioxide 18.8 L, Anion Gap 22 H, BUN 25 H, C reatinine 6.19 H, Estim Creat Clear Calc 19.75 L, Est GFR (MDRD) Non-Af 11 L, B UN/Creatinine Ratio 4.0 L, Glucose 101 H, Calcium 8.8, Troponin T Hi Sens 4Hr 147 H* Radiography Diagnostic Testing: Radiology Impression Chest X-Ray 04/06/25 17:15 IMPRESSION: Mild cardiomegaly with vascular congestion and pulmonary edema. No sizable pleural effusion. Reading Location: [id number] Physical Exam Narrative Physical Examination: General: Awake, alert, oriented x 3 and cooperative, seated upright in the PCU at the bedside, immediate crying and complaints of severe pain with minimal palpation of the anterior chest. Skin: Normal color, normal turgor, no icterus, no cyanosis except occasional stage ecchymoses, abrasions, anterior chest and back wounds but no obvious periwound erythema or marked discharge or foul odor, noninfected appearing. HEENT: AT/NC, EOMI, PERRLA, MMM. Lungs: Mildly diminished, greater bases, appropriate effort, no rales, ronchi or wheezing. Heart: Regular rate and rhythm; no gallop, rub audible. Abdomen: Soft, obese, NTTP, ND, normal BS. Extremities: No cyanosis, no clubbing, chronic BL LE 1-2+ edema. Neurological: Patient awake, alert, orientedas noted, cognitive function intact, baseline likely associated behavioral impairment; pupils equally reactive to light and accommodation, cranial nerves grossly normal, moving all 4 extremities, no focal deficits, strength preserved. Psychiatric: Affect appears labile, intermittently crying describing pain out of proportion to exam. Assessment & Plan Assessment/Plan (1) Chest pain: (2) Acute hypotension: (3) End-stage renal disease on hemodialysis: PLAN: Plan The patient is a 44 y/o M w/ PMHx: Morbid obesity, Valvular Heart Disease s/p MV mechanical valve on coumadin therapy, Chronic orthostasis on midodrine, ESRD on HD MWF following with Dr. Nora sauer, PAF, Chronic anemia/AOCD/Fe deficiency anemia, Hypothyroidism, Chronic wounds who presents to the [facility] ED on 04/06/25 with onset of chest discomfort, acute on chronic. #1. Chest pain, suspected musculoskeletal as reproducible with chronically elevated cardiac enzymes: EKG in the ED with no no acute evidence of ischemia, chest x-ray with no acute cardiopulmonary findings, cardiac enzyme troponin trend 151 > 145 > 147 which is similar to previous, Recent echocardiogram 03/03 showed EF 65%, stable appearing mechanical mitral valve apparatus, no other concerning findings. Although low suspicion for ACS and suspected likely related to patient chronic pain syndrome patient admitted to PCU, maintain on monitor, enzymes cycled as noted, given continued persistent complaint of pain especially with palpation of the chest itself CT of the chest was obtained to be cautious with no acute findings only noted mild increased left-sided lymphadenopathy. Patient continued on aspirin therapy. Will place topical pain compound at this time to the anterior chest and we will dose with Toradol 50 mg IV x 1 only. Will avoid all narcotic therapy aside oral as concern for possible abuse. The patient remains clinically stable and no obvious concerning acute findings would likely plan discharge to home either today or tomorrow. #2. Chronic back and anterior chest wounds, noninfected appearing: No obvious erythema or purulent discharge or foul odor, wound RN consulted with routine localized wound care to continue, possibly contributed to patient complaint of pain, as noted will attempt utilize topical pain compound but will avoid wounds. Procalcitonin is elevated but frequently the case with underlying chronic kidney disease and less indicative of obvious overt infection. #3. ESRD on HD with mild hypotension upon presentation and mildly elevated lactic acid, underlying orthostasis especially with dialysis: Patient with ongoing dialysis Friday, last session 04/06/2025, suspect likely hypotension and elevated lactic acid secondary to volume depletion, maintain on judicious IV fluids, maintained on chronic midodrine therapy, nephrology consulted. Lactic acid upon initial arrival 2.5 with repeat 2.0. #4. PAF/flutter with supratherapeutic INR: Patient with noted underlying arrhythmia history, currently in sinus rhythm, not on any rate or rhythm agent, holding Coumadin given supratherapeutic INR upon presentation 5.9 but no obvious evidence of bleeding, will continue to trend INR and given no bleeding will not attempt reversal. #5. Chronic macrocytic anemia, anemia of chronic disease: Admission hemoglobin 10.5, MCV 94.6, baseline hemoglobin has certainly vacillated, more recently 9 range but usually 7-8. Continue to trend. #6. Valvular heart disease: Most recent echocardiogram 03/03/2025 noted to be a limited study with EF 65%. #7. Hypothyroidism: Will continue patient on levothyroxine regimen. #8. Chronic pain syndrome: Complicates presentation as noted #1, will continue on oxycodone regimen but will defer any IV breakthrough regimen given concerns. #9. Obesity: Weight loss and lifestyle changes encouraged. #10. DVT prophylaxis: Holding Coumadin given supratherapeutic INR, will continue to trend INR but will not reverse given no evidence of bleeding. #11. Code status: Full Code. Charges/Coding Visit Charges Inpatient E&M: 96732 Subs Hosp L2
[2025-04-07 08:17] LABS: Magnesium 2.1 mg/dL (1.5-2.2); Procalcitonin 2.07 ng/mL (<=0.10)
[2025-04-07] MEDS: Aspirin E.C. 81 MG Tablet PO (09:01)
[2025-04-07] MEDS: SEVELAMER CARBONATE 800 MG TABLET 2400 MG PO ×2 (09:01→11:50)
[2025-04-07] MEDS: Folic Acid/Vitamin B Comp W-C 1 Capsule 1 CAP PO (09:01)
--- NOTE | 2025-04-07 10:13 | CT_ITS ---
PROCEDURE: CHEST WITHOUT CONTRAST 04/07/2025 REASON FOR EXAM: CHEST PAIN, ? FX TECHNIQUE: Chest CT without contrast. Coronal and Sagittal reconstruction series were provided. One or more dose reduction techniques were used (e.g., Automated exposure control, adjustment of the mA and/or kV according to patient size, use of iterative reconstruction technique RADIATION DOSE SUMMARY: CTDlvol: 19.69 mGy DLP: 718.47 mGycm COMPARISON: Prior chest radiograph dated April 06, 2025. FINDINGS: Hardware: A right-sided dialysis catheter is seen with the tip in the superior vena cava. Lymph nodes: Small benign-appearing mediastinal lymph nodes are seen. Mild enlargement of the axillary lymph nodes bilaterally more prominent on the left side. Heart and Vasculature: Prior CABG. Prior mitral valve replacement. Prominent varicosities in the subcutaneous fat overlying the chest wall. Coronary Artery Calcifications: Present Lungs and Airways: Minimal atelectasis at the left lung base. Pleura: No pleural effusion. Upper Abdomen: Bones: Degenerative changes of the thoracic spine. Dextroscoliosis. CT/Chest without Contrast IMPRESSION: Coronary artery calcification (CAC) is is present Prior CABG and mitral valve replacement. Prominent bilateral axillary lymph nodes worse on the left side. Reading Location: [place] [address]
--- NOTE | 2025-04-07 10:13 | CT_ITS ---
PROCEDURE: CHEST WITHOUT CONTRAST 04/07/2025 REASON FOR EXAM: CHEST PAIN, ? FX TECHNIQUE: Chest CT without contrast. Coronal and Sagittal reconstruction series were provided. One or more dose reduction techniques were used (e.g., Automated exposure control, adjustment of the mA and/or kV according to patient size, use of iterative reconstruction technique RADIATION DOSE SUMMARY: CTDlvol: 19.69 mGy DLP: 718.47 mGycm COMPARISON: Prior chest radiograph dated April 06, 2025. FINDINGS: Hardware: A right-sided dialysis catheter is seen with the tip in the superior vena cava. Lymph nodes: Small benign-appearing mediastinal lymph nodes are seen. Mild enlargement of the axillary lymph nodes bilaterally more prominent on the left side. Heart and Vasculature: Prior CABG. Prior mitral valve replacement. Prominent varicosities in the subcutaneous fat overlying the chest wall. Coronary Artery Calcifications: Present Lungs and Airways: Minimal atelectasis at the left lung base. Pleura: No pleural effusion. Upper Abdomen: Bones: Degenerative changes of the thoracic spine. Dextroscoliosis. CT/Chest without Contrast IMPRESSION: Coronary artery calcification (CAC) is is present Prior CABG and mitral valve replacement. Prominent bilateral axillary lymph nodes worse on the left side. Reading Location: [place] [id number]
--- NOTE | 2025-04-07 10:40 | WOUNDNOTE ---
wound photo: right chest
--- NOTE | 2025-04-07 10:40 | WOUNDNOTE ---
wound photo: right chest
--- NOTE | 2025-04-07 10:41 | WOUNDNOTE ---
wound photo: left chest
--- NOTE | 2025-04-07 10:41 | WOUNDNOTE ---
wound photo: left chest
--- NOTE | 2025-04-07 10:42 | WOUNDNOTE ---
wound photo: right upper back
--- NOTE | 2025-04-07 10:42 | WOUNDNOTE ---
wound photo: right upper back
--- NOTE | 2025-04-07 10:42 | WOUNDNOTE ---
wound photo: mid back
--- NOTE | 2025-04-07 10:42 | WOUNDNOTE ---
wound photo: mid back
[2025-04-07] MEDS: Arthritis Pain Compound 60 CLICK TUBE TOPICAL (11:49)
--- NOTE | 2025-04-07 14:45 | PCM.DC.SUM ---
Providers Date of Admission: 04/06/25 Date of Discharge: 04/07/25 Primary Care Physician: Felicita Primary Care Phys Consultations 04/07/25 01:25 Consult: Nephrology Routine Consulting Provider: Tameka Melendez Reason for Consult: ESRD on HD EMERGENT Consult: No MD Notified: Yes Date Notified: 04/07/25 Time Notified: 08:45 Method of Notification: Answering Service 04/07/25 02:33 Consult: Onc/Wound/steel inspector Routine Comment: Reason for Consult:: multiple chronic wounds Reason For Visit: HYPOTENSION, SUPRATHERAPEUTIC INR Diagnosis Discharge Diagnosis (1) Chest pain: Status: Acute Code(s): R07.9 - Chest pain, unspecified (2) Acute hypotension: Status: Acute Code(s): I95.9 - Hypotension, unspecified (3) End-stage renal disease on hemodialysis: Status: Acute Code(s): N18.6 - End stage renal disease; Z99.2 - Dependence on renal dialysis Plan: DISCHARGE DIAGNOSES: #1. Chest pain, suspected musculoskeletal as reproducible with chronically elevated cardiac enzymes #2. Chronic back and anterior chest wounds, noninfected appearing #3. ESRD on HD with mild hypotension upon presentation and mildly elevated lactic acid, underlying chronic orthostasis especially with dialysis #4. PAF/flutter with supratherapeutic INR #5. Chronic macrocytic anemia, anemia of chronic disease #6. Valvular heart disease #7. Hypothyroidism #8. Chronic pain syndrome #9. Obesity Medications at Discharge Home Medications BP monitor #1 ea 07/17/21 aspirin 81 mg tablet,delayed release (Adult Aspirin Regimen) 81 mg PO DAILY heart health 10/29/21 sucroferric oxyhydroxide 500 mg chewable tablet (Velphoro) 1,500 mg PO TIDCM phosphate binder 11/11/23 warfarin 5 mg tablet 5 mg PO DAILY blood thinner #90 tabs 05/07/24 Held on 04/07/25. Instructions: Resume on 04/13/25. Hold your coumadin until you have repeat INR check in the next 24-48 hours as initial repeat check and then per primary care scheduling until INR < 3. If there are questions about your level and if you should restart please contact your primary care office. cinacalcet 60 mg tablet 90 mg PO DAILY hormones 11/01/24 levothyroxine 25 mcg tablet 25 mcg PO DAILY disorder of thyroid gland 07/30/24 vitamin B complex-vitamin C-folic acid 0.8 mg tablet (Juju-Tashi) 1 tab PO DAILY vitamin 07/30/24 midodrine 10 mg tablet 10 mg PO TID blood pressure #90 tabs 03/01/25 oxycodone 5 mg tablet 5 mg PO BID PRN pain 03/01/25 lidocaine 5 % topical patch 1 patch topical DAILY PRN PRN pain, moderate #30 ea 04/07/25 Hospital Course Operations None Procedures EKG Summary of Care Provided Minutes Spent on Discharge: 35 Hospital Course: The patient is a 44 y/o M w/ PMHx: Morbid obesity, Valvular Heart Disease s/p MV mechanical valve on coumadin therapy, Chronic orthostasis on midodrine, ESRD on HD MWF following with Dr. Nora sauer, PAF, Chronic anemia/AOCD/Fe deficiency anemia, Hypothyroidism, Chronic wounds who presented to the [facility] ED on 04/06/25 with onset of chest discomfort, acute on chronic. EKG in the ED with no no acute evidence of ischemia, chest x-ray with no acute cardiopulmonary findings, cardiac enzyme troponin trend 151 > 145 > 147 which is similar to previous, Recent echocardiogram 03/03 showed EF 65%, stable appearing mechanical mitral valve apparatus, no other concerning findings. Although low suspicion for ACS and suspected likely related to patient chronic pain syndrome patient admitted to PCU, maintain on monitor, enzymes cycled as noted, given continued persistent complaint of pain especially with palpation of the chest itself CT of the chest was obtained to be cautious with no acute findings only noted mild increased left-sided lymphadenopathy. Patient continued on aspirin therapy. Will place topical pain compound at this time to the anterior chest and we will dose with Toradol 50 mg IV x 1 only. Avoided all narcotic therapy aside oral chronic home regimen as concern for possible abuse. In regard to chronic chest/back wounds, there was no obvious erythema or purulent discharge or foul odor, wound RN consulted with routine localized wound care continued including cleanse with soap and water daily, gently pat dry and open regions place small section adaptic, 4x4, ABD with referral at discharge to wound care center. Requested at discharge given no active bleeding concerns, that patient hold coumadin and have repeat INR testing in 1-2 days as initial re-assessment and further as needed per PCP discretion with restart of coumadin only when level <3. Recommended conservative care for patient chest pain, given musculoskeletal in nature with refill of lidocaine patches sent at discharge (avoidance of placing on wounds). Weight / BMI Weight Weight: 258 lb 13.163 oz Body Mass Index (BMI) 37.1 ABG / Lab / Microbiology Data 04/07/25 02:12 04/07/25 02:12 Laboratory: Laboratory Results - last 24 hr 04/06/25 18:50: WBC 5.6, RBC 3.70 L, Hgb 10.5 L, Hct 35.0 L, MCV 94.6 H, MCH 28.4, MCHC 30.0 L, RDW Std Deviation 70.1 H, RDW Coeff of Lance 20.3 H, Plt Count 256, MPV 10.6, Immature Gran % (Auto) 0.500, Neut % (Auto) 63.0, Lymph % (Auto) 15.6 L, [place] % (Auto) 19.2 H, Eos % (Auto) 1.3, Baso % (Auto) 0.4, Absolute Neuts (auto) 3.5, Absolute Lymphs (auto) 0.87, Nucleated RBC % 0, Differential Comment SCANNED, Platelet Estimate ADEQUATE, Polychromasia 1+, Hypochromasia 1+, Anisocytosis 2+, PT 58.1 H, INR 6.4 H*, Sodium 137, Potassium 4.4, Chloride 93 L, Carbon Dioxide 26.1, Anion Gap 18 H, BUN 21 H, Creatinine 5.74 H, Est GFR (MDRD) Non-Af 12 L, BUN/Creatinine Ratio 3.6 L, Glucose 96, Lactic Acid 2.5 H*, Calcium 9.1, Total Bilirubin 0.56, AST 31, ALT 21, Alkaline Phosphatase 170 H, Troponin T High Sens 151 H*, Total Protein 9.0 H, Albumin 4.0, Globulin 5.0 H, Albumin/Globulin Ratio 0.8 L 04/06/25 21:30: Troponin T Hi Sens 2 Hr 145 H* 04/06/25 23:22: Lactic Acid 2.0 04/07/25 02:12: WBC 5.6, RBC 3.43 L, Hgb 10.0 L, Hct 32.5 L, MCV 94.8 H, MCH 29.2, MCHC 30.8 L, RDW Std Deviation 69.7 H, RDW Coeff of Lance 20.3 H, Plt Count 260, MPV 10.5, Differential Comment , PT 54.4 H, INR 5.9 H*, Sodium 134, Potassium 4.2, Chloride 93 L, Carbon Dioxide 18.8 L, Anion Gap 22 H, BUN 25 H, Creatinine 6.19 H, Estim Creat Clear Calc 19.75 L, Est GFR (MDRD) Non-Af 11 L, BUN/Creatinine Ratio 4.0 L, Glucose 101 H, Calcium 8.8, Phosphorus 6.9 H, Magnesium 2.1, Troponin T Hi Sens 4Hr 147 H*, Procalcitonin 2.07 H 04/07/25 02:12: Procalcitonin Cancelled Radiography Diagnostic Testing: Radiology Impression Chest X-Ray 04/06/25 17:15 IMPRESSION: Mild cardiomegaly with vascular congestion and pulmonary edema. No sizable pleural effusion. Reading Location: [facility] Chest CT 04/07/25 10:13 IMPRESSION: Coronary artery calcification (CAC) is is present Prior CABG and mitral valve replacement. Prominent bilateral axillary lymph nodes worse on the left side. Reading Location: [facility] D/C Instructions Discharge Diet: - (Cardiac low fat/low cholesterol and renal diet.) May resume sexual activity in: No Restrictions Weight Bearing Status: Weight bearing as tolerated Call your doctor if you observe: - (Contact your primary care physician if you have worsening lower extremity swelling, weight gain, acute on chronic pain, dizziness, lightheadedness.) Additional Dressing/Incision Instructions: See additional section for wound care. DC O2, CPAP, BIPAP Needs Home O2 Discharge instructions: No Meaningful Use Info Meaningful Use Meaningful Use Diagnoses (Choose all that apply): None applicable Ischemic Stroke Statin Dosing Therapy Reference: STATIN DOSE THERAPY REFERENCE: * Patients > 75 years receive moderate or high dose statin therapy. * Patients 75 years or YOUNGER should receive HIGH intensity statin dose unless contraindicated. You will be required to document reason for non-treatment if statin daily dose does not meet guidelines. HIGH DOSE STATIN THERAPY DAILY Atorvastatin > than or = to 40 mg Rosuvastatin > than or = to 20 mg Amlodipine + Atorvastatin > than or = to 2.5/40 mg Ezetimibe + Simvastatin 10/80 mg Simvastatin 80mg Discharge Plan Admission Admit Date/Time: 04/06/25 23:50 Primary Reason for Your Visit: Musculoskeletal chest pain, Chronic chest/back wounds, Supratherpeutic INR. Attending Provider: Myriam Smith Primary Care Provider: Care Physician,No Primary Consulting Providers: Moy Brumfield; Tameka Melendez Instructions Additional Instructions / Restrictions: ADDITIONAL FOLLOW-UP INFORMATION/ADMISSION INFORMATION: #1. Chest pain, suspected musculoskeletal as reproducible with chronically elevated cardiac enzymes: --EKG in the ED with no no acute evidence of ischemia, chest x-ray with no acute cardiopulmonary findings, cardiac enzyme troponin trend 151 > 145 > 147 which is similar to previous. --Recent echocardiogram 03/03 showed EF 65%, stable appearing mechanical mitral valve apparatus, no other concerning findings. --CT of the chest was obtained to be cautious with no acute findings only noted mild increased left-sided lymphadenopathy. #2. Chronic back and anterior chest wounds, noninfected appearing: --Please cleanse with soap and water daily, gently pat dry. --On open regions place small section adaptic, 4x4, ABD if needed. --You have been [facility] to [facility] for ongoing evaluation and wound care. #3. ESRD on HD with mild hypotension upon presentation with chronic orthostasis: --Please continue your chronic midodrine regimen. --Patient continue with ongoing dialysis Friday. --Follow-up with Nephrology as previously arranged. #4. PAF/flutter with supratherapeutic (elevated above goal level) INR: --Upon ED evaluation your INR was elevated above goal but there was no evidence of any active bleeding. --Please hold your coumadin and have repeat INR testing in 1-2 days. --ONLY restart your coumadin when your level is <3. --Please contact your primary care physician if there are any questions about your INR level and if you should restart your coumadin. Discharge Orders/Prescriptions Prescriptions: Continued aspirin [Adult Aspirin Regimen] 81 mg tablet,delayed release (DR/EC) 81 mg PO DAILY levothyroxine 25 mcg tablet 25 mcg PO DAILY cinacalcet 60 mg tablet 90 mg PO DAILY Juju-Tashi 0.8 mg tablet 1 tab PO DAILY oxycodone 5 mg tablet 5 mg PO BID PRN (Reason: pain) midodrine 10 mg tablet 10 mg PO TID Qty: 90 3RF Velphoro 500 mg tablet,chewable 1,500 mg PO TIDCM Patient Comments: CRUSH OR CHEW AND SWALLOW 3 TABLETS 3 TIMES A DAY WITH MEALS lidocaine 5 % adhesive patch,medicated 1 patch topical DAILY PRN PRN (Reason: pain, moderate) Qty: 30 0RF Rx Instructions: leave on most painful area for up to [address] on wounds. (DME) BP monitor large cuff See Rx Instructions .Route .MEDSUPPLY Qty: 1 0RF Rx Instructions: As directed Held warfarin 5 mg tablet 5 mg PO DAILY Qty: 90 3RF Hold Instructions: Resume on 04/13/25. Hold your coumadin until you have repeat INR check in the next 24-48 hours as initial repeat check and then per primary care scheduling until INR < 3. If there are questions about your level and if you should restart please contact your primary care office. Protocol: Dose Management Condition: Friday Dose/Route: 5 mg Instruction: 1 x 5 mg tablet Condition: Friday Dose/Route: 2.5 mg Instruction: 0.5 x 5 mg tablets Condition: Friday Dose/Route: 2.5 mg Instruction: 0.5 x 5 mg tablets Condition: Friday Dose/Route: 2.5 mg Instruction: 0.5 x 5 mg tablets Condition: Dose/Route: 5 mg Instruction: 1 x 5 mg tablet Condition: Friday Dose/Route: 5 mg Instruction: 1 x 5 mg tablet Condition: Friday Dose/Route: 5 mg Instruction: 1 x 5 mg tablet Protocol Text: Adjustment Start Date: 03/17/25 INR Value: 2.1 INR Date: 03/17/25 Recheck Date: 03/24/25 Discontinued prednisone 20 mg tablet 40 mg PO DAILY Qty: 10 0RF Referrals / Follow Up: Pawel Banda MD [Med Staff - Active Staff] - (Please follow-up with Dr. Banda in 3-5 days or your new physician if already established.) Tameka Melendez MD [Med Staff - Consulting] - (Please follow-up with Nephrology as previously arranged for ongoing HD MWF.) [facility],[place] [Non-Staff] - (Please establish at the [facility] with first open visit.) Disposition Disposition (needs filled in before D/C Order can be placed): Home Health Service Charges/Coding Visit Charges Inpatient E&M: 03026 Disch Hosp >30min
--- NOTE | 2025-04-07 15:04 | CASEMGMT ---
Social Work SW met with pt and completed SDOH screening. Resources provided for gas voucher resources, food bank resources and Community Action and [employer] [address] card provided. CANDY Jones
--- NOTE | 2025-04-07 15:04 | CASEMGMT ---
Social Work SW met with pt and completed SDOH screening. Resources provided for gas voucher resources, food bank resources and Community Action and [employer] street card provided. CANDY Jones
--- NOTE | 2025-04-07 15:33 | PCM.CONS.R ---
Assessment & Plan Assessment/Plan (1) End-stage renal disease on hemodialysis: PLAN: on HD MWF schedule. came in with chest pain which is better now. will arrange for HD tomorrow if still here by tomorrow HPI Consult Data Date of Consult: 04/07/25 HPI Narrative Reason for Consultation: ESRD HPI Narrative: REJI SPAIN, is a 45 M who presents to hospital with chest pain. ESRD on HD mWF schedule. 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 Mitral valve annular calcification Central retinal artery occlusion of left eye (10/09/20) History of non-ST elevation myocardial infarction (NSTEMI) (11/08/19) 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 History of bacterial endocarditis Mechanical complication of arteriovenous fistula surgically created Obstructive sleep apnea Non compliance w medication regimen Nonrheumatic mitral valve stenosis with insufficiency 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) Atrial flutter with rapid ventricular response (07/2020) Essential (primary) hypertension History of venous thromboembolism History of pulmonary embolus (PE) Bilateral carotid artery stenosis Paroxysmal atrial fibrillation (06/10/20) Unspecified symptoms and signs involving cognitive functions and awareness (04/05/20) 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) Expressive aphasia (04/05/20) ESRD on hemodialysis Dialysis patient Chronic kidney disease-mineral and bone disorder Chronic pelvic pain in male Pelvic mass Hematuria History of blood clots Hearing loss 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 due to renal insufficiency Morbidly obese Home Medications ?Medication ?Instructions ?Recorded ?Last Taken ?Type BP monitor #1 ea 07/17/21 Unknown Rx aspirin 81 mg tablet,delayed 81 mg PO DAILY heart health 10/29/21 02/24/25 History release (Adult Aspirin Regimen) sucroferric oxyhydroxide 500 mg 1,500 mg PO TIDCM phosphate binder 11/11/23 04/06/25 History chewable tablet (Velphoro) warfarin 5 mg tablet 5 mg PO DAILY blood thinner #90 05/07/24 04/05/25 Rx Held on 04/07/25. tabs Instructions: Resume on 04/13/25. Hold your coumadin until you have repeat INR check in the next 24-48 hours as initial repeat check and then per primary care scheduling until INR < 3. If there are questions about your level and if you should restart please contact your primary care office. cinacalcet 60 mg tablet 90 mg PO DAILY hormones 07/30/24 03/02/25 History levothyroxine 25 mcg tablet 25 mcg PO DAILY disorder of 07/30/24 04/07/25 History thyroid gland vitamin B complex-vitamin C-folic 1 tab PO DAILY vitamin 07/30/24 04/07/25 History acid 0.8 mg tablet (Juju-Tashi) midodrine 10 mg tablet 10 mg PO TID blood pressure #90 03/01/25 02/28/25 Rx tabs oxycodone 5 mg tablet 5 mg PO BID PRN pain 03/01/25 04/06/25 History lidocaine 5 % topical patch 1 patch topical DAILY PRN PRN 04/07/25 Unknown Rx pain, moderate #30 ea Allergy/AdvReac Type Severity Reaction Status Date / Time trazodone Allergy Severe Jittery/Sha Verified 04/06/25 16:56 ky gabapentin Allergy Other Verified 04/06/25 16:56 Family History Other Adopted Surgical History Hx of mitral valve replacement with mechanical valve S/P PICC central line placement (06/15/24) History of angioplasty of peripheral vessel (08/28/21) History of tooth extraction, class IV edentulism (09/11/21) History of right and left heart catheterization (08/16/21) Mechanical complication of dialysis catheter History of herniorrhaphy Status post creation of arteriovenous fistula History of cardioversion (12/02/18) History of repair of congenital cleft palate History of left heart catheterization (09/17/18) history of cather replacement Social History household members: none Smoking Status: Never smoker alcohol intake: never substance use type: marijuana what type of physical activity do you participate in: none ROS ROS Narrative negative except above Physical Exam Narrative Alert awake oriented x 3 no obvious distress no pallor no icterus no JVD s1s2 no murmurs lungs clear abdomen soft no organomegaly no edema no cyanosis Lab / Micro Data 04/07/25 02:12 04/07/25 02:12 Labs: Laboratory Results - last 24 hr 04/06/25 18:50: WBC 5.6, RBC 3.70 L, Hgb 10.5 L, Hct 35.0 L, MCV 94.6 H, MCH 28.4, MCHC 30.0 L, RDW Std Deviation 70.1 H, RDW Coeff of Lance 20.3 H, Plt Count 256, MPV 10.6, Immature Gran % (Auto) 0.500, Neut % (Auto) 63.0, Lymph % (Auto) 15.6 L, [place] % (Auto) 19.2 H, Eos % (Auto) 1.3, Baso % (Auto) 0.4, Absolute Neuts (auto) 3.5, Absolute Lymphs (auto) 0.87, Nucleated RBC % 0, Differential Comment SCANNED, Platelet Estimate ADEQUATE, Polychromasia 1+, Hypochromasia 1+, Anisocytosis 2+, PT 58.1 H, INR 6.4 H*, Sodium 137, Potassium 4.4, Chloride 93 L, Carbon Dioxide 26.1, Anion Gap 18 H, BUN 21 H, Creatinine 5.74 H, Est GFR (MDRD) Non-Af 12 L, BUN/Creatinine Ratio 3.6 L, Glucose 96, Lactic Acid 2.5 H*, Calcium 9.1, Total Bilirubin 0.56, AST 31, ALT 21, Alkaline Phosphatase 170 H, Troponin T High Sens 151 H*, Total Protein 9.0 H, Albumin 4.0, Globulin 5.0 H, Albumin/Globulin Ratio 0.8 L 04/06/25 21:30: Troponin T Hi Sens 2 Hr 145 H* 04/06/25 23:22: Lactic Acid 2.0 04/07/25 02:12: WBC 5.6, RBC 3.43 L, Hgb 10.0 L, Hct 32.5 L, MCV 94.8 H, MCH 29.2, MCHC 30.8 L, RDW Std Deviation 69.7 H, RDW Coeff of Lance 20.3 H, Plt Count 260, MPV 10.5, Differential Comment , PT 54.4 H, INR 5.9 H*, Sodium 134, Potassium 4.2, Chloride 93 L, Carbon Dioxide 18.8 L, Anion Gap 22 H, BUN 25 H, Creatinine 6.19 H, Estim Creat Clear Calc 19.75 L, Est GFR (MDRD) Non-Af 11 L, BUN/Creatinine Ratio 4.0 L, Glucose 101 H, Calcium 8.8, Phosphorus 6.9 H, Magnesium 2.1, Troponin T Hi Sens 4Hr 147 H*, Procalcitonin 2.07 H 04/07/25 02:12: Procalcitonin Cancelled Imaging Radiology Impression Chest X-Ray 04/06/25 17:15 IMPRESSION: Mild cardiomegaly with vascular congestion and pulmonary edema. No sizable pleural effusion. Reading Location: [facility] Chest CT 04/07/25 10:13 IMPRESSION: Coronary artery calcification (CAC) is is present Prior CABG and mitral valve replacement. Prominent bilateral axillary lymph nodes worse on the left side. Reading Location: [place] [id number]
--- NOTE | 2025-04-07 16:12 | CASEMGMT ---
RACHEL PARNELL readmission note: Index admission: 03/03-03/11: RU/RL pain, ? CVA. Stroke work-up done and pt negative for CVA. Pt also w/right upper extremity weakness and pain. S/p arthrocentesis concerning for infection, his surgical risk was immense given his comorbidities so he had arthrocentesis done by radiology. ID reviewed patient and felt it to less likely be septic arthritis and more of gout. Pt discharged home w/2 Rx's sent to [facility], Prednisone and lidocaine. Pt was also given script for OP therapy and had planned to go to [facility]. He was also provided w/[facility] van transport info. See RACHEL PARNELL, Jaja, readmit note 03/04/25. ED visit: 03/22 for SOB. Current admission: 04/06: Hypotension, supra-therapeutic INR. Pt to room to discuss readmission and discharge plan. 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 He states he did f/u @ [facility] for OP therapy, has went to initial appt, and states was awaiting insurance approval, which was obtained. He states he has an appt for therapy scheduled @ [facility] for Wednesday 04/11 after his HD appt. He verifies he has been going to all of his OP HD treatments. He goes MWF, chair time @ 0830 @ [facility]. Pt does not have PCP. He states another provider had referred him to PCP, Dr Ro Jeter, but states They never called back and did not get established there. Pt has been provided w/physician's provider list in the past, but states he would like one again. Same provided. Pt also given [facility] info. He states RACHEL PARNELL can schedule appt @ [facility]. Call placed and hospital follow-up appt scheduled for 04/14 @ 1:30 PM. Pt made aware and verifies he will go to the appt. Appt added in pt's discharge plan. Pt states he is out of wound supplies. He was made aware his insurance does not cover for wound care supplies and made aware of locations this can be purchased. Pt denies having further discharge needs or concerns. Call to [facility] and spoke to Radha. She was notified pt is discharging home today. Pt to go to OP HD @ [facility] tomorrow. Sandra KENNEDY RN CM
== END 2025-04-07 18:36 | disposition home health service (06) | DRG 682 ==
LOC: ED 23:35 → PCU 04-07 01:02
PROVIDERS: Admitting Provider Hospitalist; Emergency Provider Emergency Medicine; PCP Nurse Practitioner Family; Visit Provider Family Medicine
DX: I12.0 Hypertensive chronic kidney disease with stage 5 chronic kidney disease or end stage renal disease (principal); N18.6 End stage renal disease; D68.32 Hemorrhagic disorder due to extrinsic circulating 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s; E87.20 Acidosis, unspecified; I48.92 Unspecified atrial flutter; N25.81 Secondary hyperparathyroidism of renal origin; S21.102A Unspecified open wound of left front wall of thorax without penetration into thoracic cavity, initial encounter; I95.3 Hypotension of hemodialysis; Z99.2 Dependence on renal dialysis; D63.1 Anemia in chronic kidney disease; E03.9 Hypothyroidism, unspecified; E66.812 Obesity, class 2; Z95.2 Presence of prosthetic heart valve; I48.0 Paroxysmal atrial fibrillation; E86.9 Volume depletion, unspecified; I25.2 Old myocardial infarction; G47.33 Obstructive sleep apnea (adult) (pediatric); I34.0 Nonrheumatic mitral (valve) insufficiency; I34.2 Nonrheumatic mitral (valve) stenosis; I44.0 Atrioventricular block, first degree; D50.9 Iron deficiency anemia, unspecified; S21.209A Unspecified open wound of unspecified back wall of thorax without penetration into thoracic cavity, initial encounter; R07.89 Other chest pain; G89.4 Chronic pain syndrome; T45.515A Adverse effect of 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s, initial encounter; R79.89 Other specified abnormal findings of blood chemistry; Z79.01 Long term (current) use of 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s; Z86.718 Personal history of other venous thrombosis and embolism; Z68.37 Body mass index [BMI] 37.0-37.9, adult; Z86.711 Personal history of pulmonary embolism; Z79.82 Long term (current) use of aspirin; Z79.899 Other long term (current) drug therapy; Z79.890 Hormone replacement therapy
CPT/HCPCS: 36415; 71045; 71250; 80048; 80053; 83605; 83735; 84100; 84145; 84484; 85025; 85027; 85610; 93005; 94668; 99252; 99284; A4216; G0463

== ENCOUNTER 2025-04-11 21:25 | Emergency (ER) | payer MEDICARE, SELFPAY ==
[2025-04-11 21:25] VITALS: BP 115/62; PULSE 99; RESP 18; TEMP 36.8; O2SAT 96
--- NOTE | 2025-04-11 21:52 | EKG12_ITS ---
Test Reason : CP Blood Pressure : */* mmHG Vent. Rate : 115 BPM Atrial Rate : * BPM P-R Int : * ms QRS Dur : 70 ms QT Int : 326 ms P-R-T Axes : * 143 25 degrees QTcB Int : 450 ms Accelerated Junctional rhythm with retrograde conduction Low voltage QRS Septal infarct (cited on or before 02-Jul-2019) Possible Lateral infarct , age undetermined Abnormal ECG Confirmed by Sean Ruiz ([id number]), acquisitions editor JOSEPH BRIONES ([id number]) on 04/13/2025 11:15:18 AM Referred By: JERRY Confirmed By: Sean Ruiz
--- NOTE | 2025-04-11 22:00 | RAD_ITS ---
PROCEDURE: CHEST 1 VIEW (PORTABLE) 04/11/2025 REASON FOR EXAM: CHEST PAIN TECHNIQUE: Frontal view of the chest. COMPARISON: 04/06/2025 FINDINGS: Devices: Right IJ approach tunneled dialysis catheter with tip at the right atrium. Lungs/Pleura: Mild vascular congestion and perihilar hazy opacities suggestive of pulmonary edema. No sizable pleural effusion. No pneumothorax. Heart/Mediastinum: Borderline cardiomegaly. Mitral annuloplasty and left atrial appendage clip cardiac hardware. Midline sternotomy wires. Bones/Soft tissues: Moderate thoracic dextroscoliosis. RAD/Chest 1 View (Portable) IMPRESSION: Mild cardiomegaly, vascular congestion and perihilar edema. Reading Location: [id number]
[2025-04-11 22:18] LABS: Hematocrit 32.1 % (40-54); Hemoglobin 9.6 g/dL (13.0-16.5); Immature Granulocytes Count 0.100 X10^3/uL (0.0-0.0); Mean Corp Hgb Conc 29.9 g/dL (32-36); Mean Corpuscular Volume 93.0 fL (80-94); Mean Platelet Vol. 10.3 fl (6.2-12.0); NRBC Flagged by Analyzer 0.3 % (0-5); POSITIVE DIFFERENTIAL YES; POSITIVE MORPHOLOGY YES; Platelet Count 373 K/mm3 (150-450); RBC Distribution Width CV 20.1 % (11.6-14.6); RBC Distribution Width SD 68.2 fl (35.1-43.9); Red Blood Count 3.45 M/mm3 (4.6-6.2); White Blood Count 9.1 K/mm3 (4.4-11.0)
[2025-04-11 22:26] LABS: Differential Indicated SCAN CRITERIA MET
[2025-04-11 22:42] LABS: Anion Gap 19 (5-15); BUN 24 mg/dL (4-19); BUN/Creat Ratio 3.2 RATIO (10-20); Calcium,Total 9.0 mg/dL (7.6-11.0); Carbon Dioxide 24.6 mmol/L (21.0-32.0); Chloride 93 mmol/L (98-108); Glucose 106 mg/dL (70-99); Potassium 3.6 mmol/L (3.3-5.1); Troponin T High Sensitivity 163 ng/L (<=22)
[2025-04-11 23:05] LABS: Prothrombin Time (Protime)PT. 32.2 SECONDS (11.7-14.9)
[2025-04-11 23:06] LABS: Partial Thromboplast Time 64.1 Seconds (24.1-36.2)
[2025-04-11 23:25] VITALS: BP 127/65; PULSE 116; RESP 18; O2SAT 93
[2025-04-11 23:25] LABS: Procalcitonin 3.33 ng/mL (<=0.10)
[2025-04-11 23:27] LABS: Acanthocytes RARE; Anisocytosis 2+; Macrocytosis 1+; Polychromasia 1+
[2025-04-11 23:28] LABS: Schistocytes RARE
[2025-04-11] MEDS: Piperacil/Tazobactam 2,250 MG in 0.9% Normal Saline (50mL MB+) 50 ML 100 MG IV (23:55)
[2025-04-12 00:26] LABS: Troponin T High Sens 2 HR 165 ng/L (<=22)
[2025-04-12 01:00] VITALS: BP 115/67; PULSE 112; RESP 18; O2SAT 99
--- NOTE | 2025-04-12 01:47 | EX.ED.DYSGE1 ---
HPI History of Present Illness Chief Complaint: Chest Pain Informant: patient Narrative Narrative: Patient is a 45-year-old male with past medical history of end-stage renal disease on dialysis as well as chronic anemia. He presents today complaining of chest discomfort along the left side. He reports he was recently seen for this and discharged home. He states his pain was improved while he was in the ER but after a few days of being discharged the pain has returned. He also states that he has chronic wounds but there has been a new wound underneath his right breast and he has been using nystatin powder but despite this there is increased drainage and discharge and he is concerned for potential infection. Therefore he presents to the hospital for evaluation. 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) Anemia in chronic kidney disease Dyspnea Secondary renal hyperparathyroidism Abdominal wall cellulitis Thrombosis of kidney dialysis arteriovenous graft COVID-19 virus detected (10/02/21) Dental caries Dialysis AV fistula malfunction Postoperative complete heart block (08/21/21) Hypotension of hemodialysis Pain of right lower extremity Medication side effects Chronic ulcer of back Sepsis Non-healing non-surgical wound 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 Mitral valve annular calcification Central retinal artery occlusion of left eye (10/09/20) History of non-ST elevation myocardial infarction (NSTEMI) (11/08/19) 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 History of bacterial endocarditis Mechanical complication of arteriovenous fistula surgically created Obstructive sleep apnea Non compliance w medication regimen Nonrheumatic mitral valve stenosis with insufficiency 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) Atrial flutter with rapid ventricular response (07/2020) Essential (primary) hypertension History of venous thromboembolism History of pulmonary embolus (PE) Bilateral carotid artery stenosis Paroxysmal atrial fibrillation (06/10/20) Unspecified symptoms and signs involving cognitive functions and awareness (04/05/20) 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) Expressive aphasia (04/05/20) ESRD on hemodialysis Dialysis patient Chronic kidney disease-mineral and bone disorder Chronic pelvic pain in male Pelvic mass Hematuria History of blood clots Hearing loss 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 due to renal insufficiency Morbidly obese Home Medications ?Medication ?Instructions ?Recorded ?Last Taken ?Type BP monitor #1 ea 07/17/21 Unknown Rx aspirin 81 mg tablet,delayed 81 mg PO DAILY heart health 10/29/21 02/24/25 History release (Adult Aspirin Regimen) sucroferric oxyhydroxide 500 mg 1,500 mg PO TIDCM phosphate binder 11/11/23 04/06/25 History chewable tablet (Velphoro) warfarin 5 mg tablet 5 mg PO DAILY blood thinner #90 05/07/24 04/05/25 Rx Held on 04/07/25. tabs Instructions: Resume on 04/13/25. Hold your coumadin until you have repeat INR check in the next 24-48 hours as initial repeat check and then per primary care scheduling until INR < 3. If there are questions about your level and if you should restart please contact your primary care office. cinacalcet 60 mg tablet 90 mg PO DAILY hormones 07/30/24 03/02/25 History levothyroxine 25 mcg tablet 25 mcg PO DAILY disorder of 07/30/24 04/07/25 History thyroid gland vitamin B complex-vitamin C-folic 1 tab PO DAILY vitamin 07/30/24 04/07/25 History acid 0.8 mg tablet (Juju-Tashi) midodrine 10 mg tablet 10 mg PO TID blood pressure #90 03/01/25 02/28/25 Rx tabs oxycodone 5 mg tablet 5 mg PO BID PRN pain 03/01/25 04/06/25 History lidocaine 5 % topical patch 1 patch topical DAILY PRN PRN 04/07/25 Unknown Rx pain, moderate #30 ea doxycycline monohydrate 100 mg 100 mg PO BID #14 CAPSULES 04/12/25 Unknown Rx capsule ketorolac 10 mg tablet 10 mg PO TID PRN pain 5 days #15 04/12/25 Unknown Rx tabs Allergy/AdvReac Type Severity Reaction Status Date / Time trazodone Allergy Severe Jittery/Sha Verified 04/11/25 21:28 ky gabapentin Allergy Other Verified 04/11/25 21:28 Family History Other Adopted Surgical History Hx of mitral valve replacement with mechanical valve S/P PICC central line placement (06/15/24) History of angioplasty of peripheral vessel (08/28/21) History of tooth extraction, class IV edentulism (09/11/21) History of right and left heart catheterization (08/16/21) Mechanical complication of dialysis catheter History of herniorrhaphy Status post creation of arteriovenous fistula History of cardioversion (12/02/18) History of repair of congenital cleft palate History of left heart catheterization (09/17/18) history of cather replacement Social History household members: none Smoking Status: Never smoker alcohol intake: never substance use type: marijuana what type of physical activity do you participate in: none ROS ROS ED Constitutional Constitutional ED: Denies chills or fever(s) ENT ENT ED: Denies sore throat Cardiovascular Cardiovascular: Reports chest pain Respiratory/Chest Respiratory/Chest: Denies cough or dyspnea Gastrointestinal Gastrointestinal: Denies abdominal pain, diarrhea, nausea or vomiting Musculoskeletal Musculoskeletal: Reports back pain Integumentary Reports other Details: Positive chronic wounds Neurologic Neurologic: Denies headache(s) Hematologic/Lymphatic Hematologic/Lymphatic: Reports easy bleeding and easy bruising EXAM Physical Exam Const Vital Signs: 04/11/25 21:25 04/11/25 22:04 04/11/25 23:00 Temperature 98.2 F Temperature Source Oral Pulse Rate 99 Respiratory Rate 18 Respiratory Effort Normal Non-Labored Blood Pressure 115/62 Blood Pressure Mean 79 Pulse Ox 96 Oxygen Delivery Method Room Air 04/11/25 23:25 04/12/25 01:00 Temperature Temperature Source Pulse Rate 116 H 112 H Respiratory Rate 18 18 Respiratory Effort Blood Pressure 127/65 H 115/67 Blood Pressure Mean 85 83 Pulse Ox 93 99 Oxygen Delivery Method Room Air Room Air Positive well nourished, well developed and obese General Appearance ED: well developed Nutritional Appearance: obese HEENT HEENT Narrative: Normocephalic atraumatic Eyes PERRL and EOMs intact bilaterally General Eye ED: Negative for scleral icterus Neck supple and no JVD Chest Wall Chest Narrative: There is reproducible chest wall pain on palpation without bony deformity or subcutaneous emphysema Patient does have recurrent/chronic wounds there is a new wound underneath the right breast that has ulcerated down to the fatty tissue with mild purulent drainage but no surrounding erythema warmth streaking or crepitance Resp normal respiratory effort and clear to auscultation bilaterally Resp Narrative: Breath sounds are diminished throughout but overall clear to auscultation without signs of respiratory distress Cardio regular rhythm Rate: tachycardic and other Other Details: Tachycardic rate with regular rhythm. There is a systolic click consistent with artificial valve. Extremity normal to inspection Neuro oriented x3, CN's II-XII intact bilaterally and no sensory deficits noted Sensorium / Orientation: alert Motor Exam: strength 5/5 throughout Psych mental status grossly normal Skin Skin Narrative: Chronic wounds to the chest wall as documented above MDM MDM MDM Narrative Medical decision making narrative: Patient arrived to the ER mildly tachycardic but otherwise with stable vitals. He does have a remote history of atrial flutter and with tachycardia and chest discomfort and EKG was obtained. This showed sinus tachycardia without ischemic findings or dysrhythmia finding. Patient blood work revealed chronic kidney disease which is consistent with his history of dialysis. His troponins are elevated but chart review reveals they are chronically elevated secondary to his history of kidney disease and they are near baseline. He is anemic at the hemoglobin of 9.6 but this is also chronic and at baseline. He does not have leukocytosis or left shift but his procalcitonin is elevated concerning for developing infection. Chest x-ray did not reveal any sign of acute infiltrate pneumothorax or pleural effusion. It did however question vascular congestion but this is chronic secondary to his end-stage renal disease and he is not hypoxic or having increased work of breathing so this is not clinically significant. As the patient was just in the ER a few days ago and has returned based on his recurrent chest pain and now has a worsening wound I did discuss the case with the hospitalist on-call Dr. Parham. He feels that as the patient's troponins are near his baseline and are chronically elevated there is no need for admission regarding the chest discomfort. He also feels that as he is normotensive and afebrile without leukocytosis that the wound can be evaluated by wound care and he can be placed on oral antibiotics but that there is no need for IV antibiotics at this time. Therefore he recommends discharge home. I discussed this plan of care with the patient and did put an order in for referral to wound care. But as his troponins are near baseline vitals are stable and he does not have findings of sepsis he will be discharged home as recommended by the hospitalist and can follow-up as an outpatient History & Record Review Discussion w/independent historian: Patient Lab Data Attestation: I reviewed the patient's lab results. Labs: Laboratory Results - last 24 hr 04/11/25 04/11/25 04/11/25 21:54 21:57 23:54 WBC 9.1 RBC 3.45 L Hgb 9.6 L Hct 32.1 L MCV 93.0 MCH 27.8 MCHC 29.9 L RDW Std Deviation 68.2 H RDW Coeff of Lance 20.1 H Plt Count 373 MPV 10.3 Immature Gran % (Auto) 1.100 H Neut % (Auto) 71.5 H Lymph % (Auto) 9.8 L Crisp % (Auto) 16.8 H Eos % (Auto) 0.4 Baso % (Auto) 0.4 Absolute Neuts (auto) 6.5 Absolute Lymphs (auto) 0.89 Nucleated RBC % 0.3 Platelet Estimate SLT INC Plt Morphology Comment CLUMPED Polychromasia 1+ Anisocytosis 2+ Macrocytosis 1+ Acanthocytes (Spur) RARE Schistocytes RARE PT 32.2 H INR 3.1 APTT 64.1 H Sodium 137 Potassium 3.6 Chloride 93 L Carbon Dioxide 24.6 Anion Gap 19 H BUN 24 H Creatinine 7.50 H* Est GFR (MDRD) Non-Af 9 L BUN/Creatinine Ratio 3.2 L Glucose 106 H Calcium 9.0 Troponin T High Sens 163 H* D Troponin T Hi Sens 2 Hr 165 H* Procalcitonin 3.33 H Radiography Diagnostic Testing: Clinical Impression(s) from Imaging Studies Chest X-Ray 04/11/25 22:00 IMPRESSION: Mild cardiomegaly, vascular congestion and perihilar edema. Reading Location: [id number] Chest x-ray is interpreted by the emergency medicine physician reveals mild vascular congestion without acute infiltrate Management Discussion w/another healthcare provider: Hospitalist Discharge Plan Triage Chief Complaint: Chest Pain ED Provider: Cory Barksdale Dx/Rx/DC Orders Clinical Impression: End stage renal disease on dialysis, Soft tissue infection, Current use of half-way anticoagulation, Chronic anemia Instructions: ED Chest Pain, Uncertain Cause, ED Wound Check (Infection) Prescriptions: New ketorolac 10 mg tablet 10 mg PO TID PRN (Reason: pain) 5 Days Qty: 15 0RF doxycycline monohydrate 100 mg capsule 100 mg PO BID Qty: 14 0RF No Action aspirin [Adult Aspirin Regimen] 81 mg tablet,delayed release (DR/EC) 81 mg PO DAILY levothyroxine 25 mcg tablet 25 mcg PO DAILY cinacalcet 60 mg tablet 90 mg PO DAILY Juju-Tashi 0.8 mg tablet 1 tab PO DAILY oxycodone 5 mg tablet 5 mg PO BID PRN (Reason: pain) midodrine 10 mg tablet 10 mg PO TID Qty: 90 3RF Velphoro 500 mg tablet,chewable 1,500 mg PO TIDCM Patient Comments: CRUSH OR CHEW AND SWALLOW 3 TABLETS 3 TIMES A DAY WITH MEALS lidocaine 5 % adhesive patch,medicated 1 patch topical DAILY PRN PRN (Reason: pain, moderate) Qty: 30 0RF Rx Instructions: leave on most painful area for up to [address] on wounds. (DME) BP monitor large cuff See Rx Instructions .Route .MEDSUPPLY Qty: 1 0RF Rx Instructions: As directed warfarin 5 mg tablet 5 mg PO DAILY Qty: 90 3RF Protocol: Dose Management Condition: Friday Dose/Route: 5 mg Instruction: 1 x 5 mg tablet Condition: Friday Dose/Route: 2.5 mg Instruction: 0.5 x 5 mg tablets Condition: Friday Dose/Route: 2.5 mg Instruction: 0.5 x 5 mg tablets Condition: Friday Dose/Route: 2.5 mg Instruction: 0.5 x 5 mg tablets Condition: Dose/Route: 5 mg Instruction: 1 x 5 mg tablet Condition: Friday Dose/Route: 5 mg Instruction: 1 x 5 mg tablet Condition: Friday Dose/Route: 5 mg Instruction: 1 x 5 mg tablet Protocol Text: Adjustment Start Date: 03/17/25 INR Value: 2.1 INR Date: 03/17/25 Recheck Date: 03/24/25 Other Ambulatory Orders: Wound Care Referral (Routine) Timeframe: 3 Days Facility: [facility] - Location[facility] Ordered By: Dr. Cory Barksdale Primary Care Provider: Care Physician,No Primary Referrals: Care Physician,No Primary [Primary Care Provider] - Activity Restrictions/Additional Instructions: Please continue your medications as directed but add the doxycycline for improved infection coverage. Your workup today revealed no signs of active heart damage. Follow-up with your family doctor for further evaluation to ensure your wound is healing and return to the ER should you have any further concerns. Print Language: Azeri Disposition Disposition: Home, Self Care Discharge Date/Time: 04/12/25 02:30
[2025-04-12 02:29] VITALS: BP 107/61; PULSE 92; RESP 18; TEMP 36.7; O2SAT 99
== END 2025-04-12 02:30 | disposition home or self-care (01) ==
PROVIDERS: Emergency Provider Emergency Medicine; Visit Provider Emergency Medicine
DX: N61.1 Abscess of the breast and nipple (principal); I12.0 Hypertensive chronic kidney disease with stage 5 chronic kidney disease or end stage renal disease; N18.6 End stage renal disease; I48.0 Paroxysmal atrial fibrillation; Z99.2 Dependence on renal dialysis; N25.81 Secondary hyperparathyroidism of renal origin; I95.3 Hypotension of hemodialysis; E66.9 Obesity, unspecified; I34.2 Nonrheumatic mitral (valve) stenosis; I34.0 Nonrheumatic mitral (valve) insufficiency; I25.2 Old myocardial infarction; D63.1 Anemia in chronic kidney disease; G47.33 Obstructive sleep apnea (adult) (pediatric); Z95.2 Presence of prosthetic heart valve; Z79.82 Long term (current) use of aspirin; Z79.01 Long term (current) use of 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s; Z86.711 Personal history of pulmonary embolism; Z79.899 Other long term (current) drug therapy; Z79.890 Hormone replacement therapy; Z86.718 Personal history of other venous thrombosis and embolism
CPT/HCPCS: 71045; 80048; 84145; 84484; 85025; 85610; 85730; 93005; 96365; 96375; 96376; 99284; A4216; J2405

== ENCOUNTER 2025-06-21 13:44 | Outpatient (RCR) | payer MEDICARE, SELFPAY ==
[2025-06-21 14:53] LABS: Prothrombin Time (Protime)PT. 24.8 SECONDS (11.7-14.9)
== END 2025-06-28 18:00 | disposition home or self-care (01) ==
LOC: LAB 13:44
PROVIDERS: Referring Provider Nurse Practitioner Gerontology; Visit Provider Internal Medicine Cardiovascular Disease
DX: Z79.01 Long term (current) use of 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s
CPT/HCPCS: 36415; 85610

== ENCOUNTER 2025-06-24 15:07 | Emergency (ER) | payer MEDICARE, SELFPAY ==
[2025-06-24] VITALS (15 sets, daily range): BP systolic 73–144; BP diastolic 36–81; PULSE 87–124; RESP 13–21; TEMP 36.8; O2SAT 97–100; BMI 36.3
--- NOTE | 2025-06-24 15:44 | EX.ED.DYSGE1 ---
HPI History of Present Illness Chief Complaint: Wound Narrative Narrative: Patient is a 45-year-old male with past medical history of end-stage renal disease on dialysis Friday, central retinal artery occlusion of the left eye, atrial flutter on warfarin, paroxysmal atrial fibrillation which who presented to the emergency department the chief complaint of bleeding from his chest. Patient states that he finished dialysis today and got in his car and all of a sudden had bleeding coming from his right chest he states that he drove here immediately. Patient states that he had his INR checked recently had but is unsure exactly what this number was. He states that he just feels weak at this point time and has no other complaints. 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) Anemia in chronic kidney disease Dyspnea Secondary renal hyperparathyroidism Abdominal wall cellulitis Thrombosis of kidney dialysis arteriovenous graft COVID-19 virus detected (10/02/21) Dental caries Dialysis AV fistula malfunction Postoperative complete heart block (08/21/21) Hypotension of hemodialysis Pain of right lower extremity Medication side effects Chronic ulcer of back Sepsis Non-healing non-surgical wound 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 Mitral valve annular calcification Central retinal artery occlusion of left eye (10/09/20) History of non-ST elevation myocardial infarction (NSTEMI) (11/08/19) 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 History of bacterial endocarditis Mechanical complication of arteriovenous fistula surgically created Obstructive sleep apnea Non compliance w medication regimen Nonrheumatic mitral valve stenosis with insufficiency 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) Atrial flutter with rapid ventricular response (07/2020) Essential (primary) hypertension History of venous thromboembolism History of pulmonary embolus (PE) Bilateral carotid artery stenosis Paroxysmal atrial fibrillation (06/10/20) Unspecified symptoms and signs involving cognitive functions and awareness (04/05/20) 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) Expressive aphasia (04/05/20) ESRD on hemodialysis Dialysis patient Chronic kidney disease-mineral and bone disorder Chronic pelvic pain in male Pelvic mass Hematuria History of blood clots Hearing loss 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 due to renal insufficiency Morbidly obese Home Medications ?Medication ?Instructions ?Recorded ?Last Taken ?Type BP monitor #1 ea 07/17/21 Unknown Rx aspirin 81 mg tablet,delayed 81 mg PO DAILY heart health 10/29/21 02/24/25 History release (Adult Aspirin Regimen) sucroferric oxyhydroxide 500 mg 1,500 mg PO TIDCM phosphate binder 11/11/23 04/06/25 History chewable tablet (Velphoro) cinacalcet 60 mg tablet 90 mg PO DAILY hormones 07/30/24 03/02/25 History levothyroxine 25 mcg tablet 25 mcg PO DAILY disorder of 07/30/24 04/07/25 History thyroid gland vitamin B complex-vitamin C-folic 1 tab PO DAILY vitamin 07/30/24 04/07/25 History acid 0.8 mg tablet (Juju-Tashi) midodrine 10 mg tablet 10 mg PO TID blood pressure #90 03/01/25 02/28/25 Rx tabs warfarin 4 mg tablet 4 mg PO .COMPLEX #100 tabs 06/23/25 Unknown Rx ascorbic acid (vitamin C) 500 mg 500 mg PO DAILY 06/24/25 Unknown History tablet doxycycline monohydrate 100 mg 100 mg PO BID 06/24/25 Unknown History tablet oxycodone 10 mg tablet 10 mg PO Q6H PRN pain 06/24/25 Unknown History Allergy/AdvReac Type Severity Reaction Status Date / Time trazodone Allergy Severe Jittery/Sha Verified 06/24/25 15:15 ky gabapentin Allergy Other Verified 06/24/25 15:15 Family History Other Adopted Surgical History Hx of mitral valve replacement with mechanical valve S/P PICC central line placement (06/15/24) History of angioplasty of peripheral vessel (08/28/21) History of tooth extraction, class IV edentulism (09/11/21) History of right and left heart catheterization (08/16/21) Mechanical complication of dialysis catheter History of herniorrhaphy Status post creation of arteriovenous fistula History of cardioversion (12/02/18) History of repair of congenital cleft palate History of left heart catheterization (09/17/18) history of cather replacement Social History household members: none Smoking Status: Never smoker alcohol intake: never substance use type: marijuana what type of physical activity do you participate in: none ROS ROS ED ROS Narrative Constitutional: Denies fevers, chills, headaches Eyes: Denies double vision Cardiovascular: Denies chest pain Respiratory: Denies shortness of breath Abdomen: Denies abdominal pain nausea vomit diarrhea : Denies urinary symptoms Neurological: Denies numbness, tingling Skin: Complains of bleeding from the right chest as noted above EXAM Physical Exam Narrative Exam Narrative: General: Patient was lying in bed rest comfortably did not appear to be in acute distress Head: Atraumatic, normocephalic Eyes: PERRL bilaterally, EOMI bilaterally, no conjunctival injection noted Neck: Soft, supple, trachea midline Cardiovascular: patient tachycardic Respiratory: Clear to auscultation bilaterally Abdomen: Soft, nondistended, no tenderness palpation Extremities: +5/5 strength noted in the bilateral lower extremities Neurological: Patient following commands that he was at [facility] years 2024 Skin: Warm, dry, chronic skin changes noted no active bleeding noted Const Vital Signs: 06/24/25 15:10 06/24/25 16:12 06/24/25 16:30 Temperature 98.2 F Temperature Source Oral Pulse Rate 124 H 110 H 105 H Respiratory Rate 18 13 21 H Blood Pressure 73/36 L 82/41 L 75/52 L Blood Pressure Mean 48 54 59 Pulse Ox 100 Oxygen Delivery Method Room Air Room Air Nasal Cannula Oxygen Flow Rate (L/min) 06/24/25 17:00 06/24/25 18:30 06/24/25 19:00 Temperature Temperature Source Pulse Rate 98 95 96 Respiratory Rate 17 18 18 Blood Pressure 108/81 H 114/75 Blood Pressure Mean 90 88 Pulse Ox 98 100 97 Oxygen Delivery Method Room Air Nasal Cannula Nasal Cannula Oxygen Flow Rate (L/min) 2 06/24/25 19:30 06/24/25 20:00 06/24/25 20:30 Temperature Temperature Source Pulse Rate 91 95 99 Respiratory Rate 18 18 18 Blood Pressure 123/75 H 111/70 103/64 Blood Pressure Mean 91 83 77 Pulse Ox 99 98 99 Oxygen Delivery Method Nasal Cannula Nasal Cannula Nasal Cannula Oxygen Flow Rate (L/min) 2 2 2 06/24/25 21:00 06/24/25 21:30 06/24/25 22:00 Temperature Temperature Source Pulse Rate 100 97 87 Respiratory Rate 16 18 18 Blood Pressure 98/63 114/71 144/67 H Blood Pressure Mean 74 85 92 Pulse Ox 98 97 97 Oxygen Delivery Method Nasal Cannula Nasal Cannula Nasal Cannula Oxygen Flow Rate (L/min) 2 2 2 06/24/25 22:30 Temperature Temperature Source Pulse Rate 99 Respiratory Rate 18 Blood Pressure Blood Pressure Mean Pulse Ox 97 Oxygen Delivery Method Nasal Cannula Oxygen Flow Rate (L/min) 2 MDM MDM MDM Narrative Medical decision making narrative: Patient is a 45-year-old male who presents to the emergency department after dialysis with a chief complaint of bleeding. Nursing came and notified me that he was having bleeding went up to the triage area and they had pressure on the wound and they had placed Surgicel on the area as well. Patient does not have any active bleeding at the time of my evaluation. We will check labs and continue to observe him. On the differential diagnose includes but not limited to acute blood loss anemia, supratherapeutic INR. Patient CBC reviewed and showed no evidence leukocytosis white blood count was 6.6, he will stable at 9.5, platelet count was noted to be 207. Patient INR was subtherapeutic at 1.9, sodium normal 137, potassium 3.5, carbon dioxide is low at 13.6 anion gap of 31 creatinine of 5.47 he is on dialysis. Patient AST and ALT were 30 and 26 respectively. On reevaluation the patient he states that he still having significant pain and that something is wrong. We we we will repeat his BMP at a lactic and a blood gas given the chemistry abnormalities this may be a laboratory error. Patient's repeat BMP was reviewed which showed a Comvax of 23.9, anion gap is now 17 this appears to be more around his baseline lactic acid normal at 1.2. Patient's venous gas showed a normal pH 7.41. Given his worsening persistent pain stating that he knows something is wrong we will add a CT of his chest on with contrast. Patient CT pending at this point will sign out CT to oncoming provider to see addendum for further details Lab Data Labs: Laboratory Results - last 24 hr 06/24/25 06/24/25 06/24/25 15:30 15:44 19:42 WBC RBC Hgb Hct MCV MCH MCHC RDW Std Deviation RDW Coeff of Lance Plt Count MPV Immature Gran % (Auto) Neut % (Auto) Lymph % (Auto) Ripley % (Auto) Eos % (Auto) Baso % (Auto) Absolute Neuts (auto) Absolute Lymphs (auto) Nucleated RBC % PT INR APTT Sodium 137 Potassium 3.5 Chloride 92 L Carbon Dioxide 13.6 L Anion Gap 31 H BUN 21 H Creatinine 5.47 H Estim Creat Clear Calc Est GFR (MDRD) Non-Af 12 L BUN/Creatinine Ratio 3.9 L Glucose 120 H Lactic Acid 1.2 Calcium 9.2 Total Bilirubin 0.33 AST 30 ALT 26 Alkaline Phosphatase 122 Total Protein 8.5 H Albumin 2.6 L Globulin 5.9 H Albumin/Globulin Ratio 0.4 L Blood Type B POSITIVE Antibody Screen NEGATIVE 06/24/25 06/24/25 20:26 Unknown WBC 6.6 RBC 3.28 L Hgb 9.5 L Hct 30.8 L MCV 93.9 MCH 29.0 MCHC 30.8 L RDW Std Deviation 61.3 H RDW Coeff of Lance 18.3 H Plt Count 207 MPV 10.9 Immature Gran % (Auto) 0.800 Neut % (Auto) 52.8 Lymph % (Auto) 25.8 Ripley % (Auto) 15.0 H Eos % (Auto) 4.8 Baso % (Auto) 0.8 Absolute Neuts (auto) 3.5 Absolute Lymphs (auto) 1.70 Nucleated RBC % 0.3 PT 21.8 H INR 1.9 APTT 39.3 H Sodium 136 Potassium 4.3 Chloride 95 L Carbon Dioxide 23.9 Anion Gap 17 H BUN 26 H Creatinine 6.08 H Estim Creat Clear Calc 19.89 L Est GFR (MDRD) Non-Af 11 L BUN/Creatinine Ratio 4.2 L Glucose 88 Lactic Acid Calcium 8.8 Total Bilirubin AST ALT Alkaline Phosphatase Total Protein Albumin Globulin Albumin/Globulin Ratio Blood Type Antibody Screen ABG Data ABG results: ABG 06/24/25 19:47 Specimen Type VASU Sample Site Not entered O2 % 2.0 VBG pH 7.42 VBG pO2 27 VBG HCO3 27 H VBG Total CO2 28 VBG O2 Sat (Calc) 50 VBG Base Excess 2 POC Mix VBG pCO2 Pt Tmp 41.6 O2 Delivery Device Cannula Discharge Plan Triage Chief Complaint: Wound ED Provider: Mau De Souza Dx/Rx/DC Orders Clinical Impression: Abrasion of chest, History of end stage renal disease, Dialysis patient, History of atrial fibrillation Prescriptions: No Action aspirin [Adult Aspirin Regimen] 81 mg tablet,delayed release (DR/EC) 81 mg PO DAILY levothyroxine 25 mcg tablet 25 mcg PO DAILY cinacalcet 60 mg tablet 90 mg PO DAILY Juju-Tashi 0.8 mg tablet 1 tab PO DAILY midodrine 10 mg tablet 10 mg PO TID Qty: 90 3RF Velphoro 500 mg tablet,chewable 1,500 mg PO TIDCM Patient Comments: CRUSH OR CHEW AND SWALLOW 3 TABLETS 3 TIMES A DAY WITH MEALS ascorbic acid (vitamin C) 500 mg tablet 500 mg PO DAILY doxycycline monohydrate 100 mg tablet 100 mg PO BID oxycodone 10 mg tablet 10 mg PO Q6H PRN (Reason: pain) (DME) BP monitor large cuff See Rx Instructions .Route .MEDSUPPLY Qty: 1 0RF Rx Instructions: As directed warfarin 4 mg tablet 4 mg PO .COMPLEX Qty: 100 3RF Protocol: Dose Management Condition: Friday Dose/Route: 4 mg Instruction: 1 x 4 mg tablet Condition: Friday Dose/Route: 4 mg Instruction: 1 x 4 mg tablet Condition: Friday Dose/Route: 4 mg Instruction: 1 x 4 mg tablet Condition: Friday Dose/Route: 4 mg Instruction: 1 x 4 mg tablet Condition: Dose/Route: 6 mg Instruction: 1.5 x 4 mg tablets Condition: Friday Dose/Route: 4 mg Instruction: 1 x 4 mg tablet Condition: Friday Dose/Route: 4 mg Instruction: 1 x 4 mg tablet Protocol Text: Adjustment Start Date: 06/23/25 INR Value: 2.2 INR Date: 06/21/25 Recheck Date: 06/30/25 Rx Instructions: 4 mg orally Daily except 6 mg (1 and a half tablets) on ; or as directedL:please give extra tablets for dose changes. Primary Care Provider: Yara Huntley Referrals: Care Physician,No Primary [Non-Staff, Medical] Activity Restrictions/Additional Instructions: Follow-up with your doctor in outpatient setting. Return for worsening symptoms or concerns. Use your oxycodone that you have at home for pain as prescribed. Print Language: Romanian
[2025-06-24 16:20] LABS: Hematocrit 30.8 % (40-54); Hemoglobin 9.5 g/dL (13.0-16.5); Immature Granulocytes Count 0.050 X10^3/uL (0.0-0.0); Mean Corp Hgb Conc 30.8 g/dL (32-36); Mean Corpuscular Volume 93.9 fL (80-94); Mean Platelet Vol. 10.9 fl (6.2-12.0); NRBC Flagged by Analyzer 0.3 % (0-5); Platelet Count 207 K/mm3 (150-450); RBC Distribution Width CV 18.3 % (11.6-14.6); RBC Distribution Width SD 61.3 fl (35.1-43.9); Red Blood Count 3.28 M/mm3 (4.6-6.2); White Blood Count 6.6 K/mm3 (4.4-11.0)
[2025-06-24 16:24] LABS: AST(SGOT) 30 U/L (<=37); Alanine Aminotransfer ALT/SGPT 26 U/L (<=46); Albumin, Serum 2.6 g/dL (3.5-5.0); Alkaline Phosphatase 122 U/L (40-129); Anion Gap 31 (5-15); BUN 21 mg/dL (4-19); BUN/Creat Ratio 3.9 RATIO (10-20); Calcium,Total 9.2 mg/dL (7.6-11.0); Carbon Dioxide 13.6 mmol/L (21.0-32.0); Chloride 92 mmol/L (98-108); Globulin 5.9 g/dL (2.2-4.2); Glucose 120 mg/dL (70-99); Potassium 3.5 mmol/L (3.3-5.1)
[2025-06-24] MEDS: 0.9% Normal Saline (500mL Bag) 500 ML 999 ML IV (16:35)
[2025-06-24 17:00] LABS: Prothrombin Time (Protime)PT. 21.8 SECONDS (11.7-14.9)
[2025-06-24 17:01] LABS: Partial Thromboplast Time 39.3 Seconds (24.1-36.2)
[2025-06-24 19:51] LABS: FI02 2.0; SITE Not entered; VBG BASE EXCESS 2 mmol/L (-1.0-3.5); VBG PO2 27 mmHg (25-40); VBG SO2 50 % (50-70); VBG TCO2 28 mmol/L (23-33)
[2025-06-24 20:56] LABS: Anion Gap 17 (5-15); BUN 26 mg/dL (4-19); BUN/Creat Ratio 4.2 RATIO (10-20); Calcium,Total 8.8 mg/dL (7.6-11.0); Carbon Dioxide 23.9 mmol/L (21.0-32.0); Chloride 95 mmol/L (98-108); Estimated Creatinine Clearance 19.89 ml/min (50-250); Glucose 88 mg/dL (70-99); Potassium 4.3 mmol/L (3.3-5.1)
--- NOTE | 2025-06-24 22:03 | ED.RN ---
This RN has attempted to ambulate the patient multiple times during this shift. The patient first refused d/t pain, the patient was medicated per MAR documentation, the patient was agreeable to attempt to ambulate after the medicine had time to work and help his pain. This RN requested the FISH WORM GROWER to ambulate the patient after the pain medication had taken the patient's pain level down and he was resting comfortably in the bed with his eyes closed. The FISH WORM GROWER informed this RN that the patient refused to ambulate despite the pain being under control. This RN went into the patient's room to educate and explain to the patient the importance of the patient ambulating in order to inform his plan of care while at this time. The patient seemed in agreement to this plan. This RN sent in the WAREHOUSE HANDLER to the room while this RN was with another patient. The WAREHOUSE HANDLER then informed this RN that the patient was refusing to ambulate once again. The patient stated well if I just fail to walk then you'll admit me, so I ain't gonna walk. Because I don't trust this. This RN attempted to educate and explain to the patient once more and the patient refused to ambulate. notified.
--- NOTE | 2025-06-24 22:16 | CT_ITS ---
PROCEDURE: CT CHEST WITH IV CONTRAST 06/24/2025 REASON FOR EXAM: RIGHT CHEST WALL PAIN, UNDER BREAST TECHNIQUE: Procedure Code: CTCHW Modality: CT Procedure: CHEST WITH CONTRAST Coronal and Sagittal reconstruction series were provided. CONTRAST: Isovue 370 VOLUME: 97 mL One or more dose reduction techniques were used (e.g., Automated exposure control, adjustment of the mA and/or kV according to patient size, use of iterative reconstruction technique). RADIATION DOSE SUMMARY: DLP: 706.6 mGycm COMPARISON: CT chest 04/07/2025. FINDINGS: Devices: Right IJ approach tunneled dialysis catheter with tip in the right atrium. Lungs/pleura: Clear. No airspace consolidation or findings of pulmonary edema. Mild left basilar dependent atelectasis. No pneumothorax or pleural effusions. Patent central airways. Mediastinum/nodes: Multiple enlarged bilateral axillary and subpectoral lymph nodes, similar to prior exam. Diffuse increased number of mildly prominent mediastinal nodes. No discrete enlarged hilar nodes. Heart: Mildly enlarged. Leadless cardiac pacer device at the right ventricular apex. Left atrial appendage occluding clip device. Mild coronary artery calcifications. No pericardial effusion. Vasculature: Normal caliber thoracic aorta and main pulmonary arteries. No aneurysm or dissection. 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 Hot quadrate sign is seen in the liver with iodinated contrast accumulation in the medial left hepatic lobe, as well as redemonstrated extensive ectatic subcutaneous venous collaterals diffusely throughout the body wall. Numerous bilateral renal cysts noted. Bones: Sternotomy wires. No acute or aggressive osseous abnormality. Mild degenerative changes of the spine with moderate-advanced thoracic dextroscoliosis. CT/Chest WITH Contrast IMPRESSION: 1. Cardiomegaly. No evidence of acute cardiopulmonary disease. 2. Redemonstrated multiple enlarged bilateral axillary/subpectoral lymph nodes, and diffuse mildly enlarged mediastinal nodes, similar to prior exam. Clinical correlation recommended. 3. Findings associated with superior vena cava occlusion/stenosis as described above, likely sequelae of longstanding central venous catheterization. Reading Location: [id number]
[2025-06-25] VITALS: BP 102/66; PULSE 90; RESP 18; O2SAT 100
[2025-06-25 00:30] VITALS: BP 117/56; PULSE 98; RESP 18; TEMP 36.9; O2SAT 97
[2025-06-25 01:00] VITALS: BP 110/72; PULSE 98; RESP 18; O2SAT 98
== END 2025-06-25 01:05 | disposition home or self-care (01) ==
LOC: ED 16:04
PROVIDERS: Emergency Provider Emergency Medicine; PCP Pediatrics; Visit Provider Emergency Medicine
DX: S20.311A Abrasion of right front wall of thorax, initial encounter (principal); I12.0 Hypertensive chronic kidney disease with stage 5 chronic kidney disease or end stage renal disease; N18.6 End stage renal disease; I48.92 Unspecified atrial flutter; I48.0 Paroxysmal atrial fibrillation; E66.01 Morbid (severe) obesity due to excess calories; D63.1 Anemia in chronic kidney disease; Z99.2 Dependence on renal dialysis; X58.XXXA Exposure to other specified factors, initial encounter; H34.12 Central retinal artery occlusion, left eye; I95.3 Hypotension of hemodialysis; I34.2 Nonrheumatic mitral (valve) stenosis; I34.0 Nonrheumatic mitral (valve) insufficiency; I25.2 Old myocardial infarction; G47.33 Obstructive sleep apnea (adult) (pediatric); N25.81 Secondary hyperparathyroidism of renal origin; Z95.2 Presence of prosthetic heart valve; Z79.01 Long term (current) use of 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s; Z79.82 Long term (current) use of aspirin; Z86.718 Personal history of other venous thrombosis and embolism; Z86.711 Personal history of pulmonary embolism; Z79.899 Other long term (current) drug therapy; Z79.890 Hormone replacement therapy
CPT/HCPCS: 71260; 80048; 80053; 82803; 83605; 85025; 85610; 85730; 86850; 86900; 86901; 96361; 96374; 99283; Q9967; A4216; J2405

== ENCOUNTER → 2025-06-28 | Outpatient (CLI) | payer MEDICARE, SELFPAY ==
--- OUTSIDE RECORDS SUMMARY | 2025-06-27 16:49 | XMS RPT_ITS ---
Author Name Auto Generated Organization [facility] Care Team Providers Care Gold Reclaimer Name Role Phone LEONARDO KINNEY Attending Unavailable MAYUR MARTINEZ Primary Care Unavailable MAYUR MARTINEZ Primary Care Unavailable BENITO FERGUSON Attending Unavailable MAURILIO CINTRON Admitting Unavailable RIVAS SOLITARIO Attending Unavailable JM CAUSEY Attending Unavailable FAREED, RIVAS Referring Unavailable PABLO VANG Referring Unavailable PABLO VANG Referring Unavailable BROOKE PINZON Attending Unavailable SILVIANO BELL Attending Unavailable FAREED, RIVAS Admitting Unavailable RIVAS SOLITARIO Attending Unavailable MARCELO GRIFFITH Referring Unavailable PROBLEMS DATE TYPE CONDITION / CODE ATTENDING STATUS 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 06/23/2025 Active Visit for wound check / Z51.89(ICD-10) BROOKE PINZON Active [facility] 06/16/2025 Active Abrasion of righ t lower leg, initial encounter / S80.811A(ICD-10) JM CAUSEY Active [facility] 06/16/2025 Active Abrasion, knee, left, initial encounter / S80.212A(ICD-10) JM CAUSEY Active [facility] 06/13/2025 Active Warfarin anticoagulation / Z79.01(ICD-10) NA Active [facility] 06/02/2025 Active Wounds, multiple / T07.XXXA(ICD-10) FAREED, [facility] 05/31/2025 Active Pain of left low er extremity / M79.605(ICD-10) FAREED, [facility] 05/31/2025 Active Tachycardia / R00.0(ICD-10) FAREED, [facility] 03/18/2024 Active ESRD (end stage renal disease) (HCC) / N18.6(ICD-10) [facility] 04/27/2025 Active Skin ulcers (HCC ) / L98.499(ICD-10) [facility] 04/23/2025 Active Bleeding from wo und / T14.8XXA(ICD-10) FAREED, [facility] 04/21/2025 Active Bleeding from op en wound of chest wall, right, initial encounter / S21.101A(ICD-10) [facility]AREED, [facility] 04/21/2025 Active S/P MVR (mitral valve replacement) / Z95.2(ICD-10) [facility] 04/20/2025 Active Wound infection / T14.8XXA(ICD-10) [facility] 04/20/2025 Active Wound infection / L08.9(ICD-10) [facility] 04/20/2025 Active Wound pain / T14.8XXA(ICD-10) FAREED, [facility] 01/05/2025 Admitting Diagnosis Pressure ulcer of left lower back, stage 3 (HCC) / L89.143(ICD-10) LEONARDO KINNEY Active [facility] 01/05/2025 Admitting Diagnosis Non-pressure chronic ulcer of skin of other sites with fat layer exposed (HCC) / L98.492(ICD-10) LEONARDO KINNEY Active [facility] 03/18/2024 Active Anemia due to ch ronic kidney disease, on chronic dialysis (HCC) / N18.6(ICD-10) SILVIANO BELL [facility] 03/18/2024 Active Anemia due to ch ronic kidney disease, on chronic dialysis (HCC) / D63.1(ICD-10) JUANCARLOS BELLNIS [facility] 03/18/2024 Active Anemia due to ch ronic kidney disease, on chronic dialysis (HCC) / Z99.2(ICD-10) CHANG SILVIANO [facility] 12/28/2024 Active Chronic ulcer of back (HCC) / L98.429(ICD-10) CHANG [facility] 12/28/2024 Active Ulcer of abdomen wall, limited to breakdown of skin (HCC) / L98.491(ICD-10) CHANG [facility] 12/28/2024 Active Ulcer of skin of breast (HCC) / L98.499(ICD-10) JUANCARLOS BELLNIS [facility] 12/26/2024 Principle diagnosis Unspecified open wound of left front wall of thorax without penetration into thoracic cavity, initial encounter / S21.102A(ICD-10) [facility] 12/26/2024 Principle diagnosis 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 Author Type: Physician Teacher Tutor Type: Progress Notes Filed: 06/16/2025 11:35 Note Text: Chief Complaint: The patient is a 45-year-old male presenting for evaluation of a left knee contusion and a right lower extremity abrasion sustained in a fall. History of Present Illness: Left Knee Injury: - Elia Weston sustained a left knee injury following a fall. - Elia reports improvement in knee function. - Able to extend and flex the knee, though with some difficulty. - X-rays showed mild arthritic changes. - Created a small abrasion on the knee during the fall, which is healing well. Right Lower Extremity Abrasion: - Elia sustained an abrasion on the right lower extremity during the same fall. - Abrasion is approximately 2x3 cm with granulation tissue, healing well. Review of Systems: Musculoskeletal: (+) calf tightness Physical Exam: - Musculoskeletal: - Left Knee: - Contusion present. - ROM: Extension to -10 degrees, flexion to 95 degrees. - Right Lower Extremity: - Abrasion on right tibia measuring 2x2x3 cm with granulation tissue, healing well. - Skin: - Left Knee: Abrasion measuring 1x1 cm with granulation tissue, healing well. Assessment AND Plan 1. Abrasion of right lower leg, initial encounter (S80.811A) - Abrasion on right tibia (2 x 2 x 3 cm) with granulation tissue, healing well. - Advised to keep wound covered with a bandage until fully healed; no need to wipe the area. - Follow-up as needed. 2. Abrasion, knee, left, initial encounter (S80.212A) - Contusion and abrasion (1 x 1 cm) on left knee, healing well. - X-rays showed mild arthritic changes. - Exam: ROM -10 to 95 degrees. - Discussed possibility of cortisone injection if arthritis worsens in the future. - Follow-up as needed. Results: Imaging: - X-ray of the left knee: Mild arthritic changes. ALMA ROSA aCtalanOV Observed: 06/16/2025 8:40 AM Status: COMPLETED Source: [facility] Office Visit (ORTHMN) ELIA WESTON ([id number]) 1980 M [facility] Date Time Provider Department 06/16/25 8:40 AM JM CAUSEY ORTHMN During your visit today, we recorded the following information about you: Weight Height 115 kg 1.778 m Jm Causey PA-C 06/16/2025 11:35 AM Signed Chief Complaint: The patient is a 45-year-old male presenting for evaluation of a left knee contusion and a right lower extremity abrasion sustained in a fall. History of Present Illness: Left Knee Injury: - Elia Weston sustained a left knee injury following a fall. - Elia reports improvement in knee function. - Able to extend and flex the knee, though with some difficulty. - X-rays showed mild arthritic changes. - Created a small abrasion on the knee during the fall, which is healing well. Right Lower Extremity Abrasion: - Elia sustained an abrasion on the right lower extremity during the same fall. - Abrasion is approximately 2x3 cm with granulation tissue, healing well. Review of Systems: Musculoskeletal: (+) calf tightness Physical Exam: - Musculoskeletal: - Left Knee: - Contusion present. - ROM: Extension to -10 degrees, flexion to 95 degrees. - Right Lower Extremity: - Abrasion on right tibia measuring 2x2x3 cm with granulation tissue, healing well. - Skin: - Left Knee: Abrasion measuring 1x1 cm with granulation tissue, healing well. Assessment AND Plan 1. Abrasion of right lower leg, initial encounter (S80.811A) - Abrasion on right tibia (2 x 2 x 3 cm) with granulation tissue, healing well. - Advised to keep wound covered with a bandage until fully healed; no need to wipe the area. - Follow-up as needed. 2. Abrasion, knee, left, initial encounter (S80.212A) - Contusion and abrasion (1 x 1 cm) on left knee, healing well. - X-rays showed mild arthritic changes. - Exam: ROM -10 to 95 degrees. - Discussed possibility of cortisone injection if arthritis worsens in the future. - Follow-up as needed. Results: Imaging: - X-ray of the left knee: Mild arthritic changes. ALMA ROSA Catalan Clarence, PA-C 06/16/2025 11:35 AM Signed - Continue changing the dressings on both your left knee abrasion (about 1 ? 1 cm) and the right holley abrasion (about 2 ? 2 ? 3 cm) once a day using the F-R swabs provided. - After cleaning, cover each wound with a large band-aid; you do not need to wipe or apply additional ointment before re-covering. - Watch for any signs of infection (increased redness, swelling, warmth, new drainage or pain). Contact the clinic or return if you notice any of these changes. - Your knee X-ray showed mild arthritis changes and a contusion from the fall; the abrasions are healing well. If arthritis pain worsens in the future, we can discuss a cortisone injection for relief. - No scheduled follow-up is required--please come back or call if you have any concerns. Referring Provider: RIVAS SOLITARIO [[id number]] Allergies As of Date: 06/16/2025 Noted Allergy Reaction GABAPENTIN 08/09/2021 16 - Unknown 14 - Other: See Comments TRAZODONE 10/11/2024 14 - Other: See Comments Comments: Fidgety Date Reviewed: 06/16/2025 Reviewed by: Walt Martinez OCCA - Fully Assessed Reason for Visit: New [[id number]] Knee Pain [132] Primary Visit Diagnosis:Abrasion of right lower leg, initial encounter [S80.811A] Other Visit Diagnosis:Abrasion, knee, left, initial encounter [S80.212A] Prescriptions as of 06/16/2025 - warfarin (COUMADIN) 4 mg tablet Take 1 tablet by mouth once daily. - warfarin (COUMADIN) 4 mg tablet Take 1 tablet by mouth every Brmmru-Inlfmjz-Scmsmhezv-Friday-Friday - Cinacalcet HCl (SENSIPAR) 30 mg tablet Take 1 tablet by mouth once daily. - sevelamer carbonate (RENVELA) 800 mg tablet Take 1 tablet by mouth three times a day with meals. - busPIRone (BUSPAR) 5 mg tablet Take 1 tablet by mouth once daily. - bisacodyl EC (DULCOLAX) 5 mg EC tablet Take 2 tablets by mouth two times a day. - pyridoxine, vitamin B6, (VITAMIN B6) 50 mg tablet Take 1 tablet by mouth once daily. - vitamin A (AQUASOL A) 10,000 unit capsule Take 1 capsule by mouth once daily. - senna (SENOKOT) 8.6 mg tab 2 tablets by ORAL/FEEDING TUBE route two times a day for 15 days. - ascorbic acid 500 mg chew Take 1 tablet by mouth once daily. - aspirin 81 mg chewable tablet Take 81 mg by mouth. - melatonin 3 mg tablet Take 3 tablets by mouth daily at bedtime. - calcitriol (ROCALTROL) 0.5 mcg capsule Take 3 capsules by mouth every Friday, Friday, and Friday. - Darbepoetin Osito In Polysorbat (ARANESP) 60 mcg/0.3 mL syrg Inject 0.3 mL subcutaneously every Friday. - polyethylene glycol 3350 (MIRALAX) 17 gram packet Take 1 Packet by mouth once daily. Dissolve dose in 4 - 8 ounces of liquid and take as directed. - oxyCODONE IR (ROXICODONE) 10 mg tab Take 10 mg by mouth every 8 hours as needed for pain. - B Complex-Vitamin C-Folic Acid (JOHNSON-BRENDA) 0.8 mg tab Take 1 tablet by mouth once daily. - midodrine (PROAMATINE) 10 mg tablet Take 2 tablets by mouth every 8 hours. Problem List As Of Date 06/16/2025 Noted Resolved ESRD (end stage renal disease) on dialysis ([facility]*10/16/2012 HTN (hypertension) [I10] 10/16/2012 Obesity [E66.9] 11/02/2012 Epigastric pain [R10.13] 11/02/2012 Mechanical complication of other vascular devic*02/12/2013 Pain and swelling of knee, left [M25.562, M25.4*07/29/2013 Obesity, morbid, BMI 40.0-49.9 ([facility]) [E66.01] 02/22/2014 Tendinitis of left shoulder [M77.8] 02/22/2014 Mass of left thigh [R22.42] 09/08/2014 Thigh pain [M79.659] 09/08/2014 Hematuria [R31.9] 12/08/2014 Dialysis patient ([facility]) [Z99.2] 12/08/2014 YEIMY (obstructive sleep apnea) [G47.33] 05/09/2015 Abdominal or pelvic swelling, mass, or lump, ri*05/09/2015 Secondary hyperparathyroidism, renal (HCC) [N25*05/09/2015 Renal osteodystrophy [N25.0] 05/09/2015 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*05/09/2015 Groin pain [R10.30] 05/09/2015 Personal history of DVT (deep vein thrombosis) *03/28/2016 Sprain of medial collateral ligament of right k*04/22/2016 ESRD (end stage renal disease) ([facility]) [N18.6] 04/21/2019 PAF (paroxysmal atrial fibrillation) ([facility]) [I48*12/02/2018 A-V fistula ([facility]) [I77.0] 04/23/2019 Anemia of chronic disease [D63.8] 04/23/2019 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] 05/18/2021 ESRD on hemodialysis ([facility]) [N18.6, Z99.2] 04/07/2019 Expressive dysphasia [R47.02] 08/01/2021 History of endocarditis [Z86.79] 08/01/2021 Hearing loss [H91.90] 02/17/2018 History of non-ST elevation myocardial infarcti*11/08/2019 Heart failure, unspecified ([facility]) [I50.9] 08/05/2011 Iron deficiency anemia, unspecified [D50.9] 05/31/2008 Chronic anticoagulation [Z79.01] 08/01/2021 Mitral valve disease [I05.9] 08/01/2021 Myocardial infarction ([facility]) [I21.9] 08/01/2021 Noncompliance with medication regimen [Z91.148] 08/01/2021 Paroxysmal atrial flutter ([facility]) [I48.92] 08/01/2021 Pulmonary embolism ([facility]) [I26.99] 08/01/2021 Pulmonary edema [J81.1] 08/01/2021 Stenosis of other vascular prosthetic devices, *05/22/2021 Unspecified atherosclerosis of [place] arteries *10/30/2013 Vitamin D deficiency [E55.9] 10/16/2020 Hypervolemia [E87.70] 08/01/2021 09/04/2021 Open wound of right side of back [S21.201A] 08/01/2021 History of stroke [Z86.73] 08/01/2021 Hypotension, chronic [I95.89] 08/01/2021 Falls [R29.6] 08/01/2021 Mitral valve stenosis, severe [I05.0] 08/03/2021 Mitral stenosis [I05.0] 08/03/2021 Obesity, Class II, BMI 35-39.9 [E66.812] 08/04/2021 Discharge planning issues [Z75.8] 08/17/2021 08/31/2021 Dental caries [K02.9] 08/19/2021 Pain, postoperative, acute [G89.18] 08/21/2021 08/29/2021 Coagulopathy (HCC) [D68.9] 08/21/2021 08/22/2021 S/P MVR (mitral valve replacement) [Z95.2] 08/22/2021 Acute pulmonary edema (HCC) [J81.0] 08/25/2021 08/31/2021 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]08/25/2021 CHB (complete heart block) (HCC) [I44.2] 08/29/2021 Encounter for support and coordination of trans*08/31/2021 Abdominal pain [R10.9] 09/28/2022 Nausea and vomiting [R11.2] 09/28/2022 09/30/2022 Near syncope [R55] 09/28/2022 Acute colitis [K52.9] 09/29/2022 Supratherapeutic INR [R79.1] 09/30/2022 Anemia of chronic disorder [D63.8] 06/12/2023 Atrial fibrillation (HCC) [I48.91] 12/02/2018 Essential hypertension, benign [I10] 1998 Abdominal wall skin ulcer, with unspecified sev*06/24/2023 Acute on chronic blood loss anemia [D62] 06/24/2023 Melena [K92.1] 06/24/2023 Hypotension [I95.9] 06/24/2023 Adjustment disorder with depressed mood [F43.21]06/27/2023 Hyperkalemia [E87.5] 06/30/2023 Hyponatremia [E87.1] 06/30/2023 Metabolic acidosis [E87.20] 06/30/2023 Anemia of renal disease [N18.9, D63.1] 06/30/2023 Skin pain [R20.8] 06/30/2023 Bleeding ulcer [K28.4] 06/30/2023 MSSA bacteremia [R78.81, B95.61] 07/01/2023 Proximal colon ulcer [K63.3] 07/02/2023 Aftercare for long-term (current) use of antibi*07/02/2023 Anemia due to chronic kidney disease, on chroni*07/02/2023 Mild protein-calorie malnutrition (HCC) [E44.1] 08/31/2023 Acquired hypothyroidism [E03.9] 03/17/2024 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 *03/18/2024 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] 03/18/2024 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] 03/18/2024 At risk for alteration in skin integrity based *03/20/2024 Venous collateral circulation [I99.8] 03/21/2024 Hypothyroidism [E03.9] 03/21/2024 H/O mitral valve replacement with mechanical va*03/21/2024 Hypocalcemia due to chronic kidney disease [E83*03/25/2024 Chronic pain syndrome [G89.4] 03/28/2024 Uremia [N19] 04/22/2024 Jugular vein occlusion, 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*04/22/2024 Arteriovenous graft stenosis, sequela [T82.858S]04/22/2024 Open abdominal wall wound [S31.109A] 04/23/2024 Anemia due to stage 5 chronic kidney disease, n*10/13/2024 Status post Maze operation for atrial fibrillat*10/13/2024 Ulcers, venous (HCC) [I83.009, L97.909] 10/13/2024 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] 10/14/2024 11/02/2024 Generalized weakness [R53.1] 10/15/2024 Anticoagulated [Z79.01] 10/15/2024 Ischemic ulcer with fat layer exposed (HCC) [L9*10/21/2024 Gastroesophageal reflux disease without esophag*11/03/2024 Secondary hyperparathyroidism (HCC) [N25.81] 11/03/2024 Anemia in chronic kidney disease (CODE) [D63.1] 11/03/2024 Wounds, multiple [T07.XXXA] 04/21/2025 Anemia due to multiple mechanisms [D64.89] 04/21/2025 Hemorrhage from open wound of left chest wall [*04/21/2025 Bleeding from open wound of chest wall, right, *04/21/2025 Open chest wound, right, sequela [S21.101S] 04/22/2025 Open chest wound, left, sequela [S21.102S] 04/22/2025 Back wound, unspecified laterality, sequela [S2*04/22/2025 Open wound of abdomen [S31.109A] 04/22/2025 Open wound of right thigh [S71.101A] 04/22/2025 Bleeding from wound [T14.8XXA] 04/23/2025 Difficult intravenous access [Z78.9] 04/24/2025 Hypervolemia [E87.70] 04/25/2025 Skin ulcers (HCC) [L98.499] 04/27/2025 Vitamin C deficiency [E54] 05/03/2025 Vitamin A deficiency [E50.9] 05/03/2025 Vitamin B6 deficiency [E53.1] 05/03/2025 Second degree AV block, Mobitz type I [I44.1] 05/06/2025 Impaired skin integrity [R23.9] 05/19/2025 History of mitral valve replacement with mechan*05/25/2025 Hx of CABG [Z95.1] 05/26/2025 S/P placement of leadless cardiac pacemaker [Z9*05/26/2025 Groin pain, chronic, left [R10.32, G89.29] 05/31/2025 Pain of left lower extremity [M79.605] 05/31/2025 Tachycardia [R00.0] 05/31/2025 History of mechanical aortic valve replacement *06/03/2025 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 1 cm) and the right holley abrasion (about 2 ? 2 ? 3 cm) once a day using the F-R swabs provided. - After cleaning, cover each wound with a large band-aid; you do not need to wipe or apply additional ointment before re-covering. - Watch for any signs of infection (increased redness, swelling, warmth, new drainage or pain). Contact the clinic or return if you notice any of these changes. - Your knee X-ray showed mild arthritis changes and a contusion from the fall; the abrasions are healing well. If arthritis pain worsens in the future, we can discuss a cortisone injection for relief. - No scheduled follow-up is required--please come back or call if you have any concerns. Disposition: Return if symptoms worsen or fail to improve. Follow-up and Disposition History for Encounter Date Provider Department Center 06/16/2025 [id number] CAUSEY Encounter Status:Closed by JM CAUSEY on 06/16/25 MELE Observed: 06/14/2025 12:00 AM Status: COMPLETED Source: [facility] Telephone (PHARAV) ELIA WESTON ([id number]) 1980 M [facility] Date Time Provider Department 06/14/25 GENEVA LEACH During your visit today, we recorded the following information about you: Geneva Leach [facility] 06/14/2025 1:35 PM Signed [facility] Anticoagulation Episode Summary Anticoagulation Care Providers Provider Role Specialty Phone number Pablo Vang MD Referring Internal Medicine [phone] Elia Herrera Enrico is a 45 year old year old male patient being evaluated today for a Lab INR. Patient is currently on the following 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(s) Warfarin. Labs Lab Results Component Value Date INR 2.1 (H) 06/13/2025 INR 3.0 (H) 06/08/2025 INR 3.2 (H) 06/07/2025 Lab Results Component Value Date HB 8.2 (L) 06/08/2025 HB 8.4 (L) 06/07/2025 HB 8.1 (L) 06/06/2025 Lab Results Component Value Date HCT 26.5 (L) 06/08/2025 HCT 27.7 (L) 06/07/2025 HCT 26.6 (L) 06/06/2025 Lab Results Component Value Date PLT 128 (L) 06/08/2025 PLT 117 (L) 06/07/2025 PLT 131 (L) 06/06/2025 Lab Results Component Value Date CREAT 6.70 (H) 06/08/2025 CREAT 5.58 (H) 06/07/2025 CREAT 7.94 (H) 06/06/2025 No components found for: TBILI3 Lab Results Component Value Date ALT 11 06/08/2025 ALT 12 06/07/2025 ALT 12 06/06/2025 Lab Results Component Value Date AST 22 06/08/2025 AST 22 06/07/2025 AST 26 06/06/2025 Estimated Creatinine Clearance: 18.7 mL/min (A) (based on SCr of 6.7 mg/dL (H)). ALLERGIES Allergen Reactions Gabapentin Unknown, Other: See Comments Trazodone Other: See Comments Fidgety Indication for Warfarin: History of stroke H/o mitral valve replacement with mechanical valve long-term (current) use of 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s Anticoagulation Episode Summary Current INR goal: 2.5-3.5 Assessment: INR result of 2.1 is SUBtherapeutic due to: patient taking lowered dosage possibly since out of the hospital. Patient denies any green tea or liver, no increase in vitamin K intake, no change in color/shape of tablet, no change in nutritional supplements. No V-8 juice, Ensure/Boost, carnation instant breakfast or soy products. Plan: Current Warfarin Dosing As of 06/14/2025 Full warfarin instructions: 06/14: 6 mg; 06/15: 6 mg; Otherwise 5 mg every Sun, Sabiha; 4 mg all other days Called and spoke to patient/caregiver Advised patient to increase dose for 2 days only then resume weekly regimen as noted above Next lab INR check scheduled on 06/20/2025 unless able to schedule with Najma LOZANO early next week. Will send to provider Patient verbalizes understanding of the plan. Patient denies need for refills. Patient advised to call the PAC with any medication changes, bleeding/bruising concerns, recent changes in vitamin k consumption, if any procedures are coming up, if they have been ill or in the hospital, and if they have missed any doses of warfarin. Geneva Leach [facility] Clinical Pharmacist, Pharmacy Anticoagulation Clinic Pharmacy Anticoagulation Clinic Pager: [phone]. Geneva Leach [facility] 06/20/2025 8:03 AM Signed Stan Hernandez - Are you able to reach out to patient to get a follow up at your Coumadin Clinic? Thank you - Geneva Leach PharmD., Bhakti Whitman, RACHEL 06/20/2025 9:53 AM Signed LEFT MESSAGE FOR PATIENT TO CALL OFFICE Geneva Leach [facility] 06/20/2025 3:45 PM Signed Called patient re: lack of PT/INR in process and unable to leave a VM as it is not set up, . Tried secondary phone number [phone] (home) and it stated wireless customer is unavailable. Left voice message asking patient's spouse Irma Weston [phone] to call the Anticoagulation Clinic at [phone]. Timbo PackD., Samra Jo [facility] 06/21/2025 4:08 PM Signed No INR available or in process. Called and spoke to patient. He will go to lab tomorrow (06/22). Pushpa Fernandez RPh 06/22/2025 2:34 PM Signed Pt did not go to the lab today. Will call when INR returns. He does have a late appt tomorrow (06/23) with Family [facility] so will see if he goes then. Pushpa Fernandez [facility] Allergies As of Date: 06/14/2025 Noted Allergy Reaction GABAPENTIN 08/09/2021 16 - Unknown 14 - Other: See Comments TRAZODONE 10/11/2024 14 - Other: See Comments Comments: Fidgety Date Reviewed: 06/07/2025 Reviewed by: Princess Catie Munguia RN - Fully Assessed Reason for Visit: Anticoagulation Telephone Fu [148] Cmt: Lab INR Primary Visit Diagnosis:History of stroke [Z86.73] Other Visit Diagnoses:H/O mitral valve replacement with mechanical valve [Z95.2] long-term (current) use of 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s [Z79.01] Prescriptions as of 06/22/2025 - warfarin (COUMADIN) 4 mg tablet Take 1 tablet by mouth once daily. - warfarin (COUMADIN) 4 mg tablet Take 1 tablet by mouth every Lqmrmm-Duexdtu-Tvedschpn-Friday-Friday - Cinacalcet HCl (SENSIPAR) 30 mg tablet Take 1 tablet by mouth once daily. - sevelamer carbonate (RENVELA) 800 mg tablet Take 1 tablet by mouth three times a day with meals. - busPIRone (BUSPAR) 5 mg tablet Take 1 tablet by mouth once daily. - bisacodyl EC (DULCOLAX) 5 mg EC tablet Take 2 tablets by mouth two times a day. - pyridoxine, vitamin B6, (VITAMIN B6) 50 mg tablet Take 1 tablet by mouth once daily. - vitamin A (AQUASOL A) 10,000 unit capsule Take 1 capsule by mouth once daily. - ascorbic acid 500 mg chew Take 1 tablet by mouth once daily. - aspirin 81 mg chewable tablet Take 81 mg by mouth. - melatonin 3 mg tablet Take 3 tablets by mouth daily at bedtime. - calcitriol (ROCALTROL) 0.5 mcg capsule Take 3 capsules by mouth every Friday, Friday, and Friday. - Darbepoetin Osito In Polysorbat (ARANESP) 60 mcg/0.3 mL syrg Inject 0.3 mL subcutaneously every Friday. - polyethylene glycol 3350 (MIRALAX) 17 gram packet Take 1 Packet by mouth once daily. Dissolve dose in 4 - 8 ounces of liquid and take as directed. - oxyCODONE IR (ROXICODONE) 10 mg tab Take 10 mg by mouth every 8 hours as needed for pain. - B Complex-Vitamin C-Folic Acid (JOHNSON-BRENDA) 0.8 mg tab Take 1 tablet by mouth once daily. - midodrine (PROAMATINE) 10 mg tablet Take 2 tablets by mouth every 8 hours. Problem List As Of Date 06/14/2025 Noted Resolved ESRD (end stage renal disease) on dialysis ([facility]*10/16/2012 HTN (hypertension) [I10] 10/16/2012 Obesity [E66.9] 11/02/2012 Epigastric pain [R10.13] 11/02/2012 Mechanical complication of other vascular devic*02/12/2013 Pain and swelling of knee, left [M25.562, M25.4*07/29/2013 Obesity, morbid, BMI 40.0-49.9 ([facility]) [E66.01] 02/22/2014 Tendinitis of left shoulder [M77.8] 02/22/2014 Mass of left thigh [R22.42] 09/08/2014 Thigh pain [M79.659] 09/08/2014 Hematuria [R31.9] 12/08/2014 Dialysis patient ([facility]) [Z99.2] 12/08/2014 YEIMY (obstructive sleep apnea) [G47.33] 05/09/2015 Abdominal or pelvic swelling, mass, or lump, ri*05/09/2015 Secondary hyperparathyroidism, renal ([facility]) [N25*05/09/2015 Renal osteodystrophy [N25.0] 05/09/2015 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*05/09/2015 Groin pain [R10.30] 05/09/2015 Personal history of DVT (deep vein thrombosis) *03/28/2016 Sprain of medial collateral ligament of right k*04/22/2016 ESRD (end stage renal disease) ([facility]) [N18.6] 04/21/2019 PAF (paroxysmal atrial fibrillation) ([facility]) [I48*12/02/2018 A-V fistula ([facility]) [I77.0] 04/23/2019 Anemia of chronic disease [D63.8] 04/23/2019 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] 05/18/2021 ESRD on hemodialysis ([facility]) [N18.6, Z99.2] 04/07/2019 Expressive dysphasia [R47.02] 08/01/2021 History of endocarditis [Z86.79] 08/01/2021 Hearing loss [H91.90] 02/17/2018 History of non-ST elevation myocardial infarcti*11/08/2019 Heart failure, unspecified (HCC) [I50.9] 08/05/2011 Iron deficiency anemia, unspecified [D50.9] 05/31/2008 Chronic anticoagulation [Z79.01] 08/01/2021 Mitral valve disease [I05.9] 08/01/2021 Myocardial infarction (HCC) [I21.9] 08/01/2021 Noncompliance with medication regimen [Z91.148] 08/01/2021 Paroxysmal atrial flutter (HCC) [I48.92] 08/01/2021 Pulmonary embolism (HCC) [I26.99] 08/01/2021 Pulmonary edema [J81.1] 08/01/2021 Stenosis of other vascular prosthetic devices, *05/22/2021 Unspecified atherosclerosis of [place] arteries *10/30/2013 Vitamin D deficiency [E55.9] 10/16/2020 Hypervolemia [E87.70] 08/01/2021 09/04/2021 Open wound of right side of back [S21.201A] 08/01/2021 History of stroke [Z86.73] 08/01/2021 Hypotension, chronic [I95.89] 08/01/2021 Falls [R29.6] 08/01/2021 Mitral valve stenosis, severe [I05.0] 08/03/2021 Mitral stenosis [I05.0] 08/03/2021 Obesity, Class II, BMI 35-39.9 [E66.812] 08/04/2021 Discharge planning issues [Z75.8] 08/17/2021 08/31/2021 Dental caries [K02.9] 08/19/2021 Pain, postoperative, acute [G89.18] 08/21/2021 08/29/2021 Coagulopathy (HCC) [D68.9] 08/21/2021 08/22/2021 S/P MVR (mitral valve replacement) [Z95.2] 08/22/2021 Acute pulmonary edema (HCC) [J81.0] 08/25/2021 08/31/2021 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]08/25/2021 CHB (complete heart block) (HCC) [I44.2] 08/29/2021 Encounter for support and coordination of trans*08/31/2021 Abdominal pain [R10.9] 09/28/2022 Nausea and vomiting [R11.2] 09/28/2022 09/30/2022 Near syncope [R55] 09/28/2022 Acute colitis [K52.9] 09/29/2022 Supratherapeutic INR [R79.1] 09/30/2022 Anemia of chronic disorder [D63.8] 06/12/2023 Atrial fibrillation (HCC) [I48.91] 12/02/2018 Essential hypertension, benign [I10] 1998 Abdominal wall skin ulcer, with unspecified sev*06/24/2023 Acute on chronic blood loss anemia [D62] 06/24/2023 Melena [K92.1] 06/24/2023 Hypotension [I95.9] 06/24/2023 Adjustment disorder with depressed mood [F43.21]06/27/2023 Hyperkalemia [E87.5] 06/30/2023 Hyponatremia [E87.1] 06/30/2023 Metabolic acidosis [E87.20] 06/30/2023 Anemia of renal disease [N18.9, D63.1] 06/30/2023 Skin pain [R20.8] 06/30/2023 Bleeding ulcer [K28.4] 06/30/2023 MSSA bacteremia [R78.81, B95.61] 07/01/2023 Proximal colon ulcer [K63.3] 07/02/2023 Aftercare for long-term (current) use of antibi*07/02/2023 Anemia due to chronic kidney disease, on chroni*07/02/2023 Mild protein-calorie malnutrition (HCC) [E44.1] 08/31/2023 Acquired hypothyroidism [E03.9] 03/17/2024 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 *03/18/2024 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] 03/18/2024 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] 03/18/2024 At risk for alteration in skin integrity based *03/20/2024 Venous collateral circulation [I99.8] 03/21/2024 Hypothyroidism [E03.9] 03/21/2024 H/O mitral valve replacement with mechanical va*03/21/2024 Hypocalcemia due to chronic kidney disease [E83*03/25/2024 Chronic pain syndrome [G89.4] 03/28/2024 Uremia [N19] 04/22/2024 Jugular vein occlusion, 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*04/22/2024 Arteriovenous graft stenosis, sequela [T82.858S]04/22/2024 Open abdominal wall wound [S31.109A] 04/23/2024 Anemia due to stage 5 chronic kidney disease, n*10/13/2024 Status post Maze operation for atrial fibrillat*10/13/2024 Ulcers, venous (HCC) [I83.009, L97.909] 10/13/2024 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] 10/14/2024 11/02/2024 Generalized weakness [R53.1] 10/15/2024 Anticoagulated [Z79.01] 10/15/2024 Ischemic ulcer with fat layer exposed (HCC) [L9*10/21/2024 Gastroesophageal reflux disease without esophag*11/03/2024 Secondary hyperparathyroidism (HCC) [N25.81] 11/03/2024 Anemia in chronic kidney disease (CODE) [D63.1] 11/03/2024 Wounds, multiple [T07.XXXA] 04/21/2025 Anemia due to multiple mechanisms [D64.89] 04/21/2025 Hemorrhage from open wound of left chest wall [*04/21/2025 Bleeding from open wound of chest wall, right, *04/21/2025 Open chest wound, right, sequela [S21.101S] 04/22/2025 Open chest wound, left, sequela [S21.102S] 04/22/2025 Back wound, unspecified laterality, sequela [S2*04/22/2025 Open wound of abdomen [S31.109A] 04/22/2025 Open wound of right thigh [S71.101A] 04/22/2025 Bleeding from wound [T14.8XXA] 04/23/2025 Difficult intravenous access [Z78.9] 04/24/2025 Hypervolemia [E87.70] 04/25/2025 Skin ulcers (HCC) [L98.499] 04/27/2025 Vitamin C deficiency [E54] 05/03/2025 Vitamin A deficiency [E50.9] 05/03/2025 Vitamin B6 deficiency [E53.1] 05/03/2025 Second degree AV block, Mobitz type I [I44.1] 05/06/2025 Impaired skin integrity [R23.9] 05/19/2025 History of mitral valve replacement with mechan*05/25/2025 Hx of CABG [Z95.1] 05/26/2025 S/P placement of leadless cardiac pacemaker [Z9*05/26/2025 Groin pain, chronic, left [R10.32, G89.29] 05/31/2025 Pain of left lower extremity [M79.605] 05/31/2025 Tachycardia [R00.0] 05/31/2025 History of mechanical aortic valve replacement *06/03/2025 long-term (current) use of 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s [Z79.*06/09/2025 Encounter Status:Closed by GENEVA LEACH on 06/14/25 PT PNL PPP Collected: 06/13/2025 5:09 PM Status: F Source: [facility] Order Comment: Specimen Type : BLOOD SPECIMEN Ordering Facility: [facility] Address: [address] [place] [address] TYPE CODE TESTS RESULT OUT OF RANGE REFERENCE UNITS LAB 5902-2(LOINC) Prothrombin time 21.9 High 9.7-13.0 sec LAB 6301-6(LOINC) INR PPP 2.1 High 0.9-1.3 Result Comment: Vitamin K An tagonist (VKA) Therapeutic Range: INR 2 to 3 (Target INR of 2.5) Note: For patients treated with VKA drugs, such as warfarin, the [place] [employer] 2012 Guideline recommends a therapeutic INR range of 2 to 3 (target INR of 2.5). This recommendation includes high-risk patients with antiphospholipid syndrome with previous arterial or venous thromboembolism, current-generation mechanical or bioprosthetic aortic heart valve replacement. Note: Patients with mechanical aortic valve replacement and additional risk factors for thromboembolic events (atrial fibrillation, previous thromboembolism, LV dysfunction, hypercoagulable conditions) or an older generation mechanical AVR (i.e., ball in-Cage) or any mechanical MVR should have a INR therapeutic range of 2.5 to 3.5 (target INR of 3). Ranjit YOUSSEF, et al. Chest 2012, 141:7S-47S Kevin RUSHING, et al. [facility] 2017, 70: 252-289 Performed By: #### [id number] # ### [facility] CLIA [id number] [address] [place] [address] CNPN Observed: 06/13/2025 12:00 AM Status: COMPLETED Source: [facility] Telephone (CARDMN) ELIA WESTON ([id number]) 1980 M T Date Time Provider Department 06/13/25 MONCHO BOWMAN During your visit today, we recorded the following information about you: Cami Burgos, TECHNOLOGIST 06/13/2025 11:14 AM Signed Post Implant follow up call: Date: 06/13/2025 Name: Elia Weston Is your incision: Red: No Open: No Swollen: No Draining: No Steri Strips: still intact If the device is an ICD, have you received any shocks: N/A Have you received your temporary or permanent ID card: No Do you have your f/u appointment: Yes Appointments for Next 60 Days Date Time Provider Location Dept Phone 06/16/2025 8:40 AM JM CAUSEY [facility] [phone] 06/17/2025 4:20 PM PABLO VANG [facility] [phone] 07/08/2025 11:15 AM [facility] [phone] 08/09/2025 10:40 AM DELVIN BELTRAN [facility] [phone] Any scheduling issues:Yes, Provided patient with appointment line to reschedule his F/U appointment. Questions moving forward: Yes: Transferred patient to device clinic nurses. Cami Burgos, TECHNOLOGIST Allergies As of Date: 06/13/2025 Noted Allergy Reaction GABAPENTIN 08/09/2021 16 - Unknown 14 - Other: See Comments TRAZODONE 10/11/2024 14 - Other: See Comments Comments: Fidgety Date Reviewed: 06/07/2025 Reviewed by: Princess Catie Munguia RN - Fully Assessed Reason for Visit: Courtesy call [Other] Cmt: Device survey Prescriptions as of 06/13/2025 - warfarin (COUMADIN) 4 mg tablet Take 1 tablet by mouth once daily. - warfarin (COUMADIN) 4 mg tablet Take 1 tablet by mouth every Qqazns-Aiwlqio-Rimqmxtqp-Friday-Friday - Cinacalcet HCl (SENSIPAR) 30 mg tablet Take 1 tablet by mouth once daily. - sevelamer carbonate (RENVELA) 800 mg tablet Take 1 tablet by mouth three times a day with meals. - busPIRone (BUSPAR) 5 mg tablet Take 1 tablet by mouth once daily. - bisacodyl EC (DULCOLAX) 5 mg EC tablet Take 2 tablets by mouth two times a day. - pyridoxine, vitamin B6, (VITAMIN B6) 50 mg tablet Take 1 tablet by mouth once daily. - vitamin A (AQUASOL A) 10,000 unit capsule Take 1 capsule by mouth once daily. - ascorbic acid 500 mg chew Take 1 tablet by mouth once daily. - aspirin 81 mg chewable tablet Take 81 mg by mouth. - melatonin 3 mg tablet Take 3 tablets by mouth daily at bedtime. - calcitriol (ROCALTROL) 0.5 mcg capsule Take 3 capsules by mouth every Friday, Friday, and Friday. - Darbepoetin Osito In Polysorbat (ARANESP) 60 mcg/0.3 mL syrg Inject 0.3 mL subcutaneously every Friday. - polyethylene glycol 3350 (MIRALAX) 17 gram packet Take 1 Packet by mouth once daily. Dissolve dose in 4 - 8 ounces of liquid and take as directed. - oxyCODONE IR (ROXICODONE) 10 mg tab Take 10 mg by mouth every 8 hours as needed for pain. - B Complex-Vitamin C-Folic Acid (JOHNSON-BRENDA) 0.8 mg tab Take 1 tablet by mouth once daily. - midodrine (PROAMATINE) 10 mg tablet Take 2 tablets by mouth every 8 hours. Problem List As Of Date 06/13/2025 Noted Resolved ESRD (end stage renal disease) on dialysis ([facility]*10/16/2012 HTN (hypertension) [I10] 10/16/2012 Obesity [E66.9] 11/02/2012 Epigastric pain [R10.13] 11/02/2012 Mechanical complication of other vascular devic*02/12/2013 Pain and swelling of knee, left [M25.562, M25.4*07/29/2013 Obesity, morbid, BMI 40.0-49.9 ([facility]) [E66.01] 02/22/2014 Tendinitis of left shoulder [M77.8] 02/22/2014 Mass of left thigh [R22.42] 09/08/2014 Thigh pain [M79.659] 09/08/2014 Hematuria [R31.9] 12/08/2014 Dialysis patient ([facility]) [Z99.2] 12/08/2014 YEIMY (obstructive sleep apnea) [G47.33] 05/09/2015 Abdominal or pelvic swelling, mass, or lump, ri*05/09/2015 Secondary hyperparathyroidism, renal ([facility]) [N25*05/09/2015 Renal osteodystrophy [N25.0] 05/09/2015 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*05/09/2015 Groin pain [R10.30] 05/09/2015 Personal history of DVT (deep vein thrombosis) *03/28/2016 Sprain of medial collateral ligament of right k*04/22/2016 ESRD (end stage renal disease) ([facility]) [N18.6] 04/21/2019 PAF (paroxysmal atrial fibrillation) ([facility]) [I48*12/02/2018 A-V fistula ([facility]) [I77.0] 04/23/2019 Anemia of chronic disease [D63.8] 04/23/2019 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] 05/18/2021 ESRD on hemodialysis (HCC) [N18.6, Z99.2] 04/07/2019 Expressive dysphasia [R47.02] 08/01/2021 History of endocarditis [Z86.79] 08/01/2021 Hearing loss [H91.90] 02/17/2018 History of non-ST elevation myocardial infarcti*11/08/2019 Heart failure, unspecified (HCC) [I50.9] 08/05/2011 Iron deficiency anemia, unspecified [D50.9] 05/31/2008 Chronic anticoagulation [Z79.01] 08/01/2021 Mitral valve disease [I05.9] 08/01/2021 Myocardial infarction (HCC) [I21.9] 08/01/2021 Noncompliance with medication regimen [Z91.148] 08/01/2021 Paroxysmal atrial flutter (HCC) [I48.92] 08/01/2021 Pulmonary embolism (HCC) [I26.99] 08/01/2021 Pulmonary edema [J81.1] 08/01/2021 Stenosis of other vascular prosthetic devices, *05/22/2021 Unspecified atherosclerosis of [place] arteries *10/30/2013 Vitamin D deficiency [E55.9] 10/16/2020 Hypervolemia [E87.70] 08/01/2021 09/04/2021 Open wound of right side of back [S21.201A] 08/01/2021 History of stroke [Z86.73] 08/01/2021 Hypotension, chronic [I95.89] 08/01/2021 Falls [R29.6] 08/01/2021 Mitral valve stenosis, severe [I05.0] 08/03/2021 Mitral stenosis [I05.0] 08/03/2021 Obesity, Class II, BMI 35-39.9 [E66.812] 08/04/2021 Discharge planning issues [Z75.8] 08/17/2021 08/31/2021 Dental caries [K02.9] 08/19/2021 Pain, postoperative, acute [G89.18] 08/21/2021 08/29/2021 Coagulopathy (HCC) [D68.9] 08/21/2021 08/22/2021 S/P MVR (mitral valve replacement) [Z95.2] 08/22/2021 Acute pulmonary edema (HCC) [J81.0] 08/25/2021 08/31/2021 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]08/25/2021 CHB (complete heart block) (HCC) [I44.2] 08/29/2021 Encounter for support and coordination of trans*08/31/2021 Abdominal pain [R10.9] 09/28/2022 Nausea and vomiting [R11.2] 09/28/2022 09/30/2022 Near syncope [R55] 09/28/2022 Acute colitis [K52.9] 09/29/2022 Supratherapeutic INR [R79.1] 09/30/2022 Anemia of chronic disorder [D63.8] 06/12/2023 Atrial fibrillation (HCC) [I48.91] 12/02/2018 Essential hypertension, benign [I10] 1998 Abdominal wall skin ulcer, with unspecified sev*06/24/2023 Acute on chronic blood loss anemia [D62] 06/24/2023 Melena [K92.1] 06/24/2023 Hypotension [I95.9] 06/24/2023 Adjustment disorder with depressed mood [F43.21]06/27/2023 Hyperkalemia [E87.5] 06/30/2023 Hyponatremia [E87.1] 06/30/2023 Metabolic acidosis [E87.20] 06/30/2023 Anemia of renal disease [N18.9, D63.1] 06/30/2023 Skin pain [R20.8] 06/30/2023 Bleeding ulcer [K28.4] 06/30/2023 MSSA bacteremia [R78.81, B95.61] 07/01/2023 Proximal colon ulcer [K63.3] 07/02/2023 Aftercare for long-term (current) use of antibi*07/02/2023 Anemia due to chronic kidney disease, on chroni*07/02/2023 Mild protein-calorie malnutrition (HCC) [E44.1] 08/31/2023 Acquired hypothyroidism [E03.9] 03/17/2024 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 *03/18/2024 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] 03/18/2024 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] 03/18/2024 At risk for alteration in skin integrity based *03/20/2024 Venous collateral circulation [I99.8] 03/21/2024 Hypothyroidism [E03.9] 03/21/2024 H/O mitral valve replacement with mechanical va*03/21/2024 Hypocalcemia due to chronic kidney disease [E83*03/25/2024 Chronic pain syndrome [G89.4] 03/28/2024 Uremia [N19] 04/22/2024 Jugular vein occlusion, 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*04/22/2024 Arteriovenous graft stenosis, sequela [T82.858S]04/22/2024 Open abdominal wall wound [S31.109A] 04/23/2024 Anemia due to stage 5 chronic kidney disease, n*10/13/2024 Status post Maze operation for atrial fibrillat*10/13/2024 Ulcers, venous (HCC) [I83.009, L97.909] 10/13/2024 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] 10/14/2024 11/02/2024 Generalized weakness [R53.1] 10/15/2024 Anticoagulated [Z79.01] 10/15/2024 Ischemic ulcer with fat layer exposed (HCC) [L9*10/21/2024 Gastroesophageal reflux disease without esophag*11/03/2024 Secondary hyperparathyroidism (HCC) [N25.81] 11/03/2024 Anemia in chronic kidney disease (CODE) [D63.1] 11/03/2024 Wounds, multiple [T07.XXXA] 04/21/2025 Anemia due to multiple mechanisms [D64.89] 04/21/2025 Hemorrhage from open wound of left chest wall [*04/21/2025 Bleeding from open wound of chest wall, right, *04/21/2025 Open chest wound, right, sequela [S21.101S] 04/22/2025 Open chest wound, left, sequela [S21.102S] 04/22/2025 Back wound, unspecified laterality, sequela [S2*04/22/2025 Open wound of abdomen [S31.109A] 04/22/2025 Open wound of right thigh [S71.101A] 04/22/2025 Bleeding from wound [T14.8XXA] 04/23/2025 Difficult intravenous access [Z78.9] 04/24/2025 Hypervolemia [E87.70] 04/25/2025 Skin ulcers (HCC) [L98.499] 04/27/2025 Vitamin C deficiency [E54] 05/03/2025 Vitamin A deficiency [E50.9] 05/03/2025 Vitamin B6 deficiency [E53.1] 05/03/2025 Second degree AV block, Mobitz type I [I44.1] 05/06/2025 Impaired skin integrity [R23.9] 05/19/2025 History of mitral valve replacement with mechan*05/25/2025 Hx of CABG [Z95.1] 05/26/2025 S/P placement of leadless cardiac pacemaker [Z9*05/26/2025 Groin pain, chronic, left [R10.32, G89.29] 05/31/2025 Pain of left lower extremity [M79.605] 05/31/2025 Tachycardia [R00.0] 05/31/2025 History of mechanical aortic valve replacement *06/03/2025 long-term (current) use of 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s [Z79.*06/09/2025 Encounter Status:Closed by CAMI BURGOS on 06/13/25 PROGRESS Observed: 06/10/2025 1:25 PM Status: COMPLETED Source: [facility] HNO ID: [id number] Author: PABLO VANG MD Service: ? Author Type: Physician Type: Progress Notes Filed: 06/10/2025 13:26 Note Text: Patient on warfarin. Per hospital discharge team, he intends to follow up with me. Did not arrive to his first after visit establish care visit. Asked our team to let patient know he needs to attend establish care visit in order to have us assume care for his medical needs including his coumadin. CNDS Observed: 06/08/2025 6:10 PM Status: COMPLETED Source: [facility] HNO ID: [id number] Author: ?, ?, ? Service: ? Author Type: ? Type: Discharge Summary Filed: 06/10/2025 11:50 Note Text: DIALYSIS DISCHARGE CORRESPONDENCE NOTE NEPHROLOGY Q6/ESRD SERVICE Name of outpatient dialysis unit: [facility] Najma, Configuration Release Manager: Dr. Melendez, Fax number: [phone] Clinical plan faxed to outpatient dialysis unit within 24-48 hours of discharge: (yes/no) yes, Including last 2 nephrology notes: (yes/no) yes, Including last 2 LEONEL dialysis orders: (yes/no) yes, Including discharge summary: (yes/no) yes. If fax sent more than 48 hours after discharge, state reason (e.g.: discharge over the weekend) or N/A: N/A If home hemodialysis patient, fax sent to home unit: (yes or N/A): N/A. Fax confirmation received: (yes/no): yes, Date: 06/10/2026, Time: 11:50 AM [id number] [phone] for any question about inpatient nephrology care. SIGNATURE: Joselyn Rivera Pss PATIENT NAME: Elia Weston DATE: June 10, 2025 TIME: 11:46 AM PAGER: CASE MANAGEM Observed: 06/08/2025 3:42 PM Status: COMPLETED Source: [facility] HNO ID: [id number] Author: DALE PETERSON LISW Service: Care Management Author Type: Ppa Teacher Type: Care Mgt Progress Note Filed: 06/08/2025 15:44 Note Text: CARE MANAGEMENT DISCHARGE NOTE SERVICE DATE: June 08, 2025 SERVICE TIME: 3:43 PM Admission Date: 05/31/2025 LOS: 8 days Discharge Arrangement Discharge Arrangement: Home with Home Health Home Care: Nursing Services Arranged [facility] Caregiver Assessment Caregiver is ready, willing and able to meet the patient's needs as recommended by the inter-professional team: Yes Transportation Arrangements Transportation Arrangements: Car Discharge Information Row Name ED to Hosp-Admission (Current) from 05/31/2025 in HOSP MAIN H081 Home Health Care Agency [facility] [phone] DC planned for today Patient will dc home with [facility] 24-48 hours SIGNATURE: PACO Ross PATIENT NAME: Elia Weston DATE: June 08, 2025 TIME: 3:43 PM PLAN OF CARE Observed: 06/08/2025 2:44 PM Status: COMPLETED Source: [facility] ID: [id number] Author: ALEJANDRA CAMEJO, ? Service: Pharmacy Author Type: Anvil Worker Type: Plan of Care Filed: 06/08/2025 18:07 Note Text: PHARMACY BEDSIDE DELIVERY SERVICE Patient Name: Elia Weston The marked outpatient medications were Filled at: [facility] and delivered to the patient's bedside to patient Medication List CHANGE how you take these medications * warfarin 4 mg tablet Commonly known as: COUMADIN Take 1 tablet by mouth every Qykvdc-Rigsqcw-Aznuyronl-Friday What changed: medication strength how much to take how to take this when to take this additional instructions DELIVERED * warfarin 5 mg tablet Commonly known as: COUMADIN Take 1 tablet by mouth every and Friday Patient should start on June 09, 2025. Start taking on: June 09, 2025 What changed: You were already taking a medication with the same name, and this prescription was added. Make sure you understand how and when to take each. DELIVERED * This list has 2 medication(s) that are the same as other medications prescribed for you. Read the directions carefully, and ask your doctor or other care provider to review them with you. CONTINUE taking these medications Ascorbic Acid 500 mg Chew Take 1 tablet by mouth once daily. aspirin 81 mg chewable tablet bisacodyl EC 5 mg EC tablet Commonly known as: DULCOLAX Take 2 tablets by mouth two times a day. busPIRone 5 mg tablet Commonly known as: BUSPAR Take 1 tablet by mouth once daily. calcitriol 0.5 mcg capsule Commonly known as: ROCALTROL Take 3 capsules by mouth every Friday, Friday, and Friday. cinacalcet 30 mg tablet Commonly known as: SENSIPAR Take 1 tablet by mouth once daily. Darbepoetin Osito In Polysorbat 60 mcg/0.3 mL Syrg Commonly known as: ARANESP Inject 0.3 mL subcutaneously every Friday. melatonin 3 mg tablet Take 3 tablets by mouth daily at bedtime. midodrine 10 mg tablet Commonly known as: PROAMATINE Take 2 tablets by mouth every 8 hours. oxyCODONE IR 10 mg Tab Commonly known as: ROXICODONE polyethylene glycol 3350 17 gram packet Commonly known as: MIRALAX Take 1 Packet by mouth once daily. Dissolve dose in 4 - 8 ounces of liquid and take as directed. pyridoxine (vitamin B6) 50 mg tablet Commonly known as: VITAMIN B6 Take 1 tablet by mouth once daily. JOHNSON-BRENDA 0.8 mg Tab Generic drug: B Complex-Vitamin C-Folic Acid senna 8.6 mg Tab Commonly known as: SENOKOT 2 tablets by ORAL/FEEDING TUBE route two times a day for 15 days. sevelamer carbonate 800 mg tablet Commonly known as: RENVELA Take 1 tablet by mouth three times a day with meals. vitamin A 10,000 unit capsule Commonly known as: AQUASOL A Take 1 capsule by mouth once daily. You might also be taking other medications not listed above. If you have questions about any of your other medications, talk to the person who prescribed them or your Primary Care Provider. Alejandra Camejo June 08, 2025 2:44 PM CNDS Observed: 06/08/2025 1:53 PM Status: COMPLETED Source: [facility] HNO ID: [id number] Author: RIVAS SOLITARIO MD Service: General Internal Medicine Author Type: Physician Type: Discharge Summary Filed: 06/16/2025 17:32 Note Text: DISCHARGE SUMMARY PATIENT NAME: Elia Weston ADMISSION DATE: 05/31/2025 DISCHARGE DATE: 06/08/2025 ATTENDING PHYSICIAN: Rivas Solitario MD Code Status: Full Code PCP: No primary care provider on file. Highest Readmission Risk Score: 28 The 30 day readmissions risk score is derived from an internally validated risk model which evaluates patient level characteristics, utilization history, medication orders and lab results up until the day of discharge. Patients with a score of 39 or above are considered highest risk for readmission. Specific patient level drivers will be listed at the bottom of the summary. MENDOZA MEDICATION CHANGES: Continue taking warfarin and follow up with coumadin clinic - Take warfarin 5 mg on and Friday - Take warfarin 4 mg on Friday, Friday, Friday, Friday, and Friday MAKE SURE YOU FOLLOW UP WITH YOUR COUMADIN CLINIC FOLLOW UP WITH YOUR PCP IN 1 WEEK REASON FOR HOSPITALIZATION/FINAL DIAGNOSIS: acute on chronic CKD HOSPITAL PROBLEMS: Active Hospital Problems Diagnosis POA Groin pain, chronic, left Yes History of mechanical aortic valve replacement Yes Pain of left lower extremity Unknown Tachycardia Unknown Wounds, multiple Yes Anticoagulated Yes Pain and swelling of knee, left Yes ESRD (end stage renal disease) on dialysis (HCC) Yes Resolved Hospital Problems No resolved problems to display. 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 He developed left knee pain and a painful mass in the left groin, near the recent pacemaker access site, resulting in difficulty ambulating and missing a scheduled dialysis session. On admission, he was afebrile but mildly hypotensive and tachycardic. Labs showed stable anemia (Hgb 8.2), Cr 8.9, INR 1.7. CT lower extremity and bilateral groin ultrasound were unremarkable, effectively ruling out pseudoaneurysm, hematoma, DVT, or AV fistula. The thigh mass was deemed likely a soft tissue injury, possibly related to anticoagulation and recent vascular access. Pain improved over the course of hospitalization with conservative management. X-ray of the left knee showed no acute fracture or dislocation, but chronic degenerative changes were noted. Orthopedics recommended outpatient follow-up if symptoms persist. Physical therapy assessed the patient and did not identify any acute rehab needs. INR was monitored closely throughout admission. Heparin was initially continued under stroke protocol but discontinued on 06/02 once INR reached 2.0. Warfarin was continued with dosing adjustments (7.5 mg -> 5 mg) for goal INR >2.0 given history of mechanical mitral valve and paroxysmal atrial fibrillation. Patient also reported new left upper extremity swelling on hospital day 3. DVT ultrasound was ordered but not completed prior to discharge. The swelling was non-tender and without erythema, and perfusion was intact. He was hemodynamically stable and ambulating at baseline at discharge. Warfarin was continued at 4 mg daily, with plans for outpatient INR monitoring. Follow-up with nephrology, wound care, and anticoagulation clinic was arranged. Of note, 2 days before discharge, patient brought up a concern about left breast swelling. There was initial concern from our team about a possible hematoma given his warfarin or a clot based on his history of clots in the past. However, CT of the chest, the opinion of the internal medicine admitting team, and the expert evaluation of thoracic surgery, it was deemed that this was not infected hematoma, nor a clot. And that it was safe to discharge patient on the condition that he follows up with his primary care about it. He was concerned about CPAP machine needing re-issuing. A sleep medicine follow-up has been placed. OPERATIONS/PROCEDURE DURING THIS HOSPITALIZATION: * No surgery found * CONSULTS DURING HOSPITALIZATION: Treatment Team: Attending Provider: Rivas Solitario MD Primary Service: JEFFREY Haq Attending: Beulah Ramey MD PATIENT CONDITION AT DISCHARGE: Stable DISCHARGE DISPOSITION: Home with Self Care Discharge Physical Exam: VITAL SIGNS: BP 101/63 Pulse 96 Temp 36.7 ?C (98.1 ?F) Resp 16 Ht 175.3 cm (5' 9) Wt 126.1 kg (278 lb) SpO2 98% BMI 41.05 kg/m? General: obese, nontoxic-appearing CV: RRR, normal S1, S2, no S3 or S4 Resp: CTA BL, no wheezing or crackles Abd: Soft, nontender, nondistended MSK: Improvement in swelling in the left upper extremity. Tenderness in the medial left thigh. No leg edema WOUND/SURGICAL SITE CARE: Orders Placed This Encounter WOUND CARE (NURSING COMMUNICATION ONLY - NOT A CONSULT TO WOUND CARE) (SPECIFY) ([place]), 7 Wounds Associated Order Comments: Plan - Right Pretibial - Remove old dressing, cleanse the wound with normal saline/wound cleanser and then pat dry. Apply 3M Skin Barrier or ConvaTec skin barrier wand to the skye-wound skin and allow to dry. Cut to fit the size of the wound a piece of Urgotul Contact Layer and apply to the wound, then cover with a foam adhesive. Change dressing daily and as needed. - Left Lower Abdomen and Right Upper Anterior Leg - Apply Sween Cream to the wounds BID and as needed. - Right Upper Back - Remove old dressing, cleanse the wound with normal saline/wound cleanser and then pat dry. Apply 3M Skin Barrier or ConvaTec skin barrier wand to the skye-wound skin and allow to dry. Apply a thin layer of Hydrogel to the wound, then cover with a foam adhesive. Change dressing daily and as needed. - Left Groin - Remove old dressing, cleanse the wound with normal saline/wound cleanser and then pat dry. Apply 3M Skin Barrier or ConvaTec skin barrier wand to the skye-wound skin and allow to dry. Cut to fit the size of the wound a piece of Biatain Calcium Alginate AG and apply to the wound, then cover with a foam adhesive. Change dressing daily and as needed. - Right Chest - Remove old dressing, cleanse the wound with normal saline/wound cleanser and then pat dry. Apply Vashe ([place] # [id number]) saturated gauze and allow to sit on the wound for 5-10 minutes, gently remove and dry area. Apply 3M Skin Barrier or ConvaTec skin barrier wand to the skye-wound skin and allow to dry. Apply moistened Hydrofera Blue ([place] # [id number]) cut to fit wound and cover with a foam adhesive. Change every other day and as needed. If Hydrofera Blue turns from blue to white dressing needs to be changed. (Cut Hydrofera Blue while it is dry and then use NS to moistened before placing on the wound). Peel back to assess daily- if Hydrofera is dry add saline to moisten before reapplying. - Left Chest - Remove old dressing, cleanse the wound with normal saline/wound cleanser and then pat dry. Apply Vashe ([place] # [id number]) saturated gauze and allow to sit on the wound for 5-10 minutes, gently remove and dry area. Apply 3M Skin Barrier or ConvaTec skin barrier wand to the skye-wound skin and allow to dry. Apply a thin layer of Hydrogel to the wound, then gently fill the wound with Vashe ([place] # [id number]) moistened Kerlix and cover with a foam adhesive. Change daily and as needed. - Maintain patient on Isotour low air loss blower for the remainder of the admission- ordered today. Prevention - Apply Critic-aid Clear to perianal area and coccyx extending onto bilateral buttocks BID and as needed. - Obtain Keith-Bartolo heel protectors to bilateral lower extremities, to off-load heels, while in bed. (oracle number [id number]) - Obtain Medline Comfort [place] Sheet (oracle number [id number]) and Turning wedge (oracle number [id number]) to off-load patient's coccyx/ischium every 2 hours. - Obtain Seating Cushion ([place] # [id number]) and use when patient is up to chair. - Off-load heels, while in bed, and off-load patient's coccyx/ischium every 2 hours. - Nutrition consult advised for optimized wound healing. - Apply ConvaTec skin barrier wand to bilateral heels and elbows daily. - WCCT will continue to follow patient. Please reconsult if wounds worsen. Freq: Ongoing Dressing type:: Other (comments) SUPPLIES OR EQUIPMENT: Standard Cane DIET: Resume your pre-hospital diet Renal ACTIVITY AND EXERCISE: Resume pre-hospital activity FOLLOW UP APPOINTMENTS: Future Appointments Date Time Provider Department Center 06/16/2025 8:40 AM [facility] 4:20 PM Pablo Vang MD FAMPWS [facility] 07/08/2025 11:15 AM DEVICE CLINIC CAEPMN [facility] 08/09/2025 10:40 AM [facility] 7:30 AM [id number] MAIN [id number] [facility] 08/15/2025 8:00 AM Patria Rios APRN.FLORAL ASSOCIATE CARDMN [facility] ALLERGIES Allergen Reactions Gabapentin Unknown, Other: See Comments Trazodone Other: See Comments Fidgety DISCHARGE MEDICATION: Medication List CHANGE how you take these medications * warfarin 4 mg tablet Commonly known as: COUMADIN Take 1 tablet by mouth every Xklncd-Iyczkti-Cjywzxbtl-Friday-Friday What changed: You were already taking a medication with the same name, and this prescription was added. Make sure you understand how and when to take each. * warfarin 5 mg tablet Commonly known as: COUMADIN Take 1 tablet by mouth every and Friday Patient should start on June 09, 2025. Start taking on: June 09, 2025 What changed: how much to take how to take this when to take this additional instructions * This list has 2 medication(s) that are the same as other medications prescribed for you. Read the directions carefully, and ask your doctor or other care provider to review them with you. CONTINUE taking these medications Ascorbic Acid 500 mg Chew Take 1 tablet by mouth once daily. aspirin 81 mg chewable tablet bisacodyl EC 5 mg EC tablet Commonly known as: DULCOLAX Take 2 tablets by mouth two times a day. busPIRone 5 mg tablet Commonly known as: BUSPAR Take 1 tablet by mouth once daily. calcitriol 0.5 mcg capsule Commonly known as: ROCALTROL Take 3 capsules by mouth every Friday, Friday, and Friday. cinacalcet 30 mg tablet Commonly known as: SENSIPAR Take 1 tablet by mouth once daily. Darbepoetin [place] In Polysorbat 60 mcg/0.3 mL Syrg Commonly known as: ARANESP Inject 0.3 mL subcutaneously every Friday. melatonin 3 mg tablet Take 3 tablets by mouth daily at bedtime. midodrine 10 mg tablet Commonly known as: PROAMATINE Take 2 tablets by mouth every 8 hours. oxyCODONE IR 10 mg Tab Commonly known as: ROXICODONE polyethylene glycol 3350 17 gram packet Commonly known as: MIRALAX Take 1 Packet by mouth once daily. Dissolve dose in 4 - 8 ounces of liquid and take as directed. pyridoxine (vitamin B6) 50 mg tablet Commonly known as: VITAMIN B6 Take 1 tablet by mouth once daily. JOHNSON-BRENDA 0.8 mg Tab Generic drug: B Complex-Vitamin C-Folic Acid senna 8.6 mg Tab Commonly known as: SENOKOT 2 tablets by ORAL/FEEDING TUBE route two times a day for 15 days. sevelamer carbonate 800 mg tablet Commonly known as: RENVELA Take 1 tablet by mouth three times a day with meals. vitamin A 10,000 unit capsule Commonly known as: AQUASOL A Take 1 capsule by mouth once daily. Where to Get Your Medications These medications were sent to [facility] [address] [place] [address] Hours: Friday-Friday 7am-8pm, Friday, Friday and Holidays 9am-5pm warfarin 4 mg tablet warfarin 5 mg tablet The patient's risk for 30-day readmission is determined using the following contributing factors: Predictive Model Details 26% (Moderate) Factor Value Calculated 06/08/2025 05:19 20% diagnosis count 67 [facility] READMISSION RISK Model -13% Facility [facility] 13% Admissions (60d) 2 8% Creatinine (Min) 5.22 8% RDW (Max) 18.5 7% Admissions (90d) 2 6% Malnutrition 1 -6% ED Encounter 0 5% [facility]5% Observations (365d) 0 Plan of care discussed with Provider, RN, Patient SIGNATURE: Harris Dennis MD DATE: June 08, 2025 TIME: 1:53 PM ATTENDING PHYSICIAN: Patient seen and evaluated today Mendoza elements of history and physical examination of the patient were confirmed. The assessment and plan were formulated and discussed with the team on Rounds. I reviewed the resident's note, examined the patient and agree with the documented findings and plan of care. Discussed discharge planning with the resident Swelling anterior and lateral left side of chest due to edema from vaso-occlusive disease as per ultrasound Plan of care discussed with: Provider, RN, Patient, Pharmacist, and residents and medical student. I personally spent 45 minutes in the discharge management of this patient-time spent on counseling and making follow-up arrangements Rivas Solitario MD mobile- [phone] PROGRESS Observed: 06/08/2025 1:36 PM Status: COMPLETED Source: [facility] HNO ID: [id number] Author: FRANCISCO NAGY RT(R) Service: ? Author Type: Technologist Type: Progress Notes Filed: 06/08/2025 13:36 Note Text: Radiology Service Progress Note PATIENT NAME: Elia Weston DATE OF SERVICE: June 08, 2025 TIME: 1:36 PM PATIENT IDENTITY VERIFICATION COMPLETED USING TWO (2) IDENTIFIERS: Name and Date of confirmed by patient verbally and Name and Date of confirmed by identification band. FALL SCREENING: Has the patient had 2 falls in the last year or 1 fall with injury or currently using an Ambulatory Assistive Device (Walker, Cane, Wheelchair, Crutches, etc.)? Inpatient: Screened on floor PATIENT GENDER DATA: Assigned male at PATIENT RELEVANT IMPLANT DATA REVIEWED: Not Applicable PATIENT PRESENTS WITH AN IMPLANTABLE OR ATTACHED EMBEDDED SOFTWARE ARCHITECT: No RADIOLOGY DEPARTMENT: Ultrasound PERIPHERAL IV DATA: Not applicable SIGNED BY: RT Leonidas(R) June 08, 2025 1:36 PM US CHEST WALL/SOFT TISSUE Observed: 05/30 1:35 PM Status: F Source: [facility] * * *Final Report* * * DATE OF EXAM: Jun 08 2025 1:35PM [facility] [place] 1047 - US CHEST WALL/SOFT TISSUE / PROCEDURE REASON: Soft tissue mass, chest, superficial * * * * Physician Interpretation * * * * CHEST WALL ULTRASOUND HISTORY: CT chest, 06/06/2025 TECHNIQUE: Targeted sonography of the left chest wall subcutaneous tissues was performed. Images were obtained and stored in a permanent archive. RESULT: See impression. IMPRESSION: Diffuse subcutaneous edema throughout the left chest wall, but no hematoma or abscess. Extensive superficial venous collaterals as seen on the recent chest CT. Residential Driver: PSCB Transcribe Date/Time: Jun 08 2025 1:53P Dictated by : CORY GRIFFITH MD This examination was interpreted and the report reviewed and electronically signed by: CORY GRIFFITH MD on Jun 08 2025 1:54PM EST [id number] CONSULT PROG Observed: 06/08/2025 10:08 AM Status: COMPLETED Source: [facility] HNO ID: [id number] Author: LUCILLE GOMEZ APRN.FLORAL ASSOCIATE Service: Nephrology Author Type: Nurse Practitioner Type: Consult Progress Note Filed: 06/08/2025 10:14 Note Text: CONSULT PROGRESS NOTE NEPHROLOGY Q6 SERVICE SERVICE DATE: 06/08/2025 SERVICE TIME: 10:08 AM SUBJECTIVE INTERVAL HISTORY: -ESRD Patient seen on dialysis, single evaluation. Orders confirmed and documented per LEONEL. No UOP per epic. Requesting increased UF. Denies Shortness of Breath. On RA. -Patient tolerating dialysis well -Denies any chest pain, shortness of breath or dizziness -Denies any nausea, vomiting, muscle aches or headaches MEDICATIONS: Current Facility-Administered Medications Medication Dose Route Frequency NaCl 0.9% iv flush bag 20 mL INTRAVENOUS PRN acetaminophen 650 mg tab(s) (TYLENOL) 650 mg ORAL/FEEDING TUBE q 6 H PRN aspirin 81 mg chewable tab(s) 81 mg ORAL DAILY midodrine 20 mg tab(s) (PROAMATINE) 20 mg ORAL q 8 H bisacodyl EC 10 mg tab(s) (DULCOLAX) 10 mg ORAL BID senna 17.2 mg tab(s) (SENOKOT) 17.2 mg ORAL/FEEDING TUBE BID busPIRone 5 mg tab(s) (BUSPAR) 5 mg ORAL DAILY cinacalcet 30 mg tab(s) (SENSIPAR) 30 mg ORAL DAILY sevelamer carbonate 800 mg tab(s) (RENVELA) 800 mg ORAL TID w MEALS ascorbic acid 500 mg chewable tab(s) 500 mg ORAL DAILY B Complex-Vitamin C-Folic Acid 1 tablet tab(s) (JOHNSON-VIT) 1 tablet ORAL DAILY calcitriol 1.5 mcg cap(s) (ROCALTROL) 1.5 mcg ORAL MO-WE- melatonin 9 mg tab(s) 9 mg ORAL AT BEDTIME pyridoxine (vitamin B6) 50 mg tab(s) (VITAMIN B6) 50 mg ORAL DAILY vitamin A 10,000 Units cap(s) (AQUASOL A) 10,000 Units ORAL DAILY cholecalciferol 5,000 Units tab(s) (VITAMIN D3) 5,000 Units ORAL/FEEDING TUBE DAILY clobetasol topical ointment 0.05% (TEMOVATE) TOPICAL BID diazePAM 2.5 mg injection (VALIUM) 2.5 mg INTRAVENOUS q 12 H PRN fentaNYL 50 mcg/mL 25 mcg injection (SUBLIMAZE) 25 mcg INTRAVENOUS DAILY PRN fentaNYL 50 mcg/mL 50 mcg injection (SUBLIMAZE) 50 mcg INTRAVENOUS DAILY PRN ondansetron (PF) 4 mg injection (ZOFRAN) 4 mg INTRAVENOUS q 6 H PRN oxyCODONE IR 15 mg tab(s) (ROXICODONE) 15 mg ORAL/FEEDING TUBE q 4 H PRN dextrose 15 gram/32 mL 15 g (TRUEPLUS) 15 g ORAL PRN Or glucagon 1 mg injection 1 mg INTRAMUSCULAR PRN Or dextrose 10% iv bolus 12.5 g INTRAVENOUS PRN midodrine 10 mg tab(s) (PROAMATINE) 10 mg ORAL PRN DIALYSIS polyethylene glycol 3350 17 g packet 17 g ORAL BID warfarin order for discharge OTHER PRN warfarin (COUMADIN) tab(s) 4 mg 4 mg ORAL/FEEDING TUBE DAILY - WARFARIN OBJECTIVE PHYSICAL EXAM: BP 98/71 Pulse 72 Temp 36.8 ?C (98.2 ?F) (Oral) Resp 17 Ht 175.3 cm (5' 9) Wt 126.1 kg (278 lb) SpO2 98% BMI 41.05 kg/m? No intake or output data in the 24 hours ending 09/10/25 1008 GENERAL: Awake, alert, in no acute distress SKIN: Warm and dry HEENT: Normocephalic, Atraumatic LUNGS:Normal respiratory effort. CARDIAC: RRR ABDOMEN: Soft, non-tender, non-distended. EXTREMITIES: trace LE edema, no joint swelling NEURO: AOx3, normal speech Vascular Access: Hemodialysis catheter location: Right Tunneled internal jugular. Exit site demonstrates: normal findings DATA: Diagnostic tests reviewed for today's visit: Recent Labs 06/07/25 0953 06/06/25 0641 06/05/25 1501 06/04/25 0656 06/03/25 0725 NA 140 141 140 142 138 K 4.5 4.9 4.8 4.5 4.7 CHLOR 98 99 97* 97* 96* CO2 29 26 26 28 26 BUN 16 28* 23 16 33* CREAT 5.58* 7.94* 7.10* 5.22* 8.05* GLUC 75 84 87 81 88 ANION 13 16* 17* 17* 16* CA 8.7 8.0* 8.5 8.5 7.8* Recent Labs 06/08/25 0655 06/07/25 0953 06/06/25 0641 WBC 4.38 4.11 3.99 HB 8.2* 8.4* 8.1* HCT 26.5* 27.7* 26.6* PLT 128* 117* 131* ASSESSMENT: Mr. 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 Patient underwent pacemaker placement during his most recent hospitalization he is back for concern for groin wound. Nephrology consulted for ESR management. 1.ESRD -Etiology: HTN Renal Biopsy 2005 for renal failure of undetermined etiology. 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 -EDW 114 kg, pre-weigh today 118.6 kg with UF goal 3.5 L as tolerated -Hypervolemic on exam 4.Anemia of CKD: -hgb below goal -ANABELLA: aranesp weekly 5.Secondary renal hyperparathyroidism: -Phos stable on recent lab on renvela -Calcium corrects stable on sensipar -on calcitriol PLAN: -IHD today x 4.5 hours, 3 K bath with UF goal 3 L -Next dialysis planned for Friday -Recommend Aranesp 60mcg weekly - ordered -Continue midodrine -continue renvela Standard ESRD recommendations and precautions: - Strict IANDOs and Daily weight - Consider a RENAL Diet for HD patients - Fluid restriction < 1 L - Start Nephrocap or other renal multivitamin to replace water-soluble vitamins lost during dialysis - Avoid Lovenox, Demerol, Morphine, K-containing IVF, Mg- or Phos- containing enemas - Dose meds GFR 10 ml/min Outpatient dialysis disposition plan: contact [phone] and ask to speak with the director of front office as needed for assistance with post-discharge arrangements. Please DO NOT schedule patient for a nephrology follow up appointment. Kidney care will be provided by the primary data warehousing engineer at their dialysis unit upon hospital discharge. SIGNATURE: Lucille Gomez APRN.CNP PATIENT NAME: Elia Weston DATE: June 08, 2025 TIME: 10:08 AM PAGER: [phone] FOR AFTER HOUR CONCERNS BETWEEN 5PM - 7AM CONTACT ON-CALL NEPHROLOGY FELLOW [phone] Disclosures: Parts of the current progress note may have been copied from a previous note. CBC PNL BLD AUTO Collected: 6:55 AM Status: F Source: [facility] Order Comment: Specimen Type : BLOOD SPECIMEN Ordering Facility: [facility] Address: [address] [place] [address] TYPE CODE TESTS RESULT OUT OF RANGE REFERENCE UNITS LAB 6690-2(LOINC) WBC # Bld Auto 4.38 3.70-11.00 k/uL LAB 789-8(LOINC) RBC # Bld Auto 2.78 Low 4.20-6.00 m/uL LAB 718-7(LOINC) Hgb Bld-mCnc 8.2 Low 13.0-17.0 g/dL LAB 4544-3(LOINC) Hct VFr Bld Auto 26.5 Low 39.0-51.0 % LAB 787-2(LOINC) MCV RBC Auto 95.3 80.0-100.0 fL LAB 785-6(LOINC) MCH RBC Qn Auto 29.5 26.0-34.0 pg LAB 786-4(LOINC) MCHC RBC Auto-mCnc 30.9 30.5-36.0 g/dL LAB 19571-5(LOINC) RDW RBC-Rto 17.3 High 11.5-15.0 % LAB 777-3(LOINC) Platelet # Bld Auto 128 Low 150-400 k/uL Result Comment: Results chec ked and verified.No clot detected. LAB 34731-0(LOINC) PMV Bld Auto 11.4 9.0-12.7 fL LAB 771-6(LOINC) nRBC # Bld Auto <0.01 <0.01 k/uL Performed By: #### [id number] # ### [facility] CLIA [id number] [address] [place] [address] [place] OF [facility] PT PNL PPP Collected: 06/08/2025 6:55 AM Status: F Source: [facility] Order Comment: Specimen Type : BLOOD SPECIMEN Ordering Facility: [facility] Address: [address] [place] [id number] TYPE CODE TESTS RESULT OUT OF RANGE REFERENCE UNITS LAB 5902-2(INC) Prothrombin time 29.8 High 9.7-13.0 sec LAB 6301-6(LOINC) INR PPP 3.0 High 0.9-1.3 Result Comment: Vitamin K An tagonist (VKA) Therapeutic Range: INR 2 to 3 (Target INR of 2.5) Note: For patients treated with VKA drugs, such as warfarin, the [place] [employer] 2012 Guideline recommends a therapeutic INR range of 2 to 3 (target INR of 2.5). This recommendation includes high-risk patients with antiphospholipid syndrome with previous arterial or venous thromboembolism, current-generation mechanical or bioprosthetic aortic heart valve replacement. Note: Patients with mechanical aortic valve replacement and additional risk factors for thromboembolic events (atrial fibrillation, previous thromboembolism, LV dysfunction, hypercoagulable conditions) or an older generation mechanical AVR (i.e., ball in-Cage) or any mechanical MVR should have a INR therapeutic range of 2.5 to 3.5 (target INR of 3). Ranjit GH, et al. Chest 2012, 141:7S-47S Kevin RA, et al. [facility] 2017, 70: 252-289 Performed By: #### 64061-5 # ### [facility] CLIA [id number] [address] [place] [address] [place] COMP METAB 2000 PNL SERPL Collected: 6:55 AM Status: F Source: [facility] Order Comment: Specimen Type : BLOOD SPECIMEN Ordering Facility: [facility] Address: [address] [place] [address] TYPE CODE TESTS RESULT OUT OF RANGE REFERENCE UNITS LAB 2885-2(LOINC) Prot SerPl-mCnc 7.2 6.3-8.0 g/dL LAB 1751-7(LOINC) Albumin SerPl-mCnc 3.7 Low 3.9-4.9 g/dL LAB 51667-1(LOINC) Calcium SerPl-mCnc 8.3 Low 8.5-10.2 mg/dL LAB 1974-2(LOINC) Bilirub SerPl-mCnc 0.3 0.2-1.3 mg/dL LAB 6768-6(LOINC) ALP SerPl-cCnc 127 High 38-113 U/L LAB 1920-8(LOINC) AST SerPl-cCnc 22 14-40 U/L LAB 1742-6(LOINC) ALT SerPl-cCnc 11 10-54 U/L LAB 2345-7(LOINC) Glucose SerPl-mCnc 87 74-99 mg/dL Result Comment: The [place] Diabetes Association (ADA) provides guidance for cutoff values for fasting glucose and random glucose. The ADA defines fasting as no caloric intake for at least 8 hours. Fasting plasma glucose results between 100 to 125 mg/dL indicate increased risk for diabetes (prediabetes). Fasting plasma glucose results greater than or equal to 126 mg/dL meet the criteria for diagnosis of diabetes. In the absence of unequivocal hyperglycemia, results should be confirmed by repeat testing. In a patient with classic symptoms of hyperglycemia or hyperglycemic crisis, random plasma glucose results greater than or equal to 200 mg/dL meet the criteria for diagnosis of diabetes. Reference: Standards of Medical Care in Diabetes 2016, [place] Diabetes Association. Diabetes Care. 2016.39(Suppl 1). LAB 3094-0(LOINC) BUN SerPl-mCnc 25 High 9-24 mg/dL LAB 2160-0(LOINC) Creat SerPl-mCnc 6.70 High 0.73-1.22 mg/dL LAB 2951-2(LOINC) Sodium SerPl-sCnc 145 High 136-144 mmol/L LAB 2823-3(LOINC) Potassium SerPl-sCnc 4.7 3.7-5.1 mmol/L LAB 2075-0(LOINC) Chloride SerPl-sCnc 98 98-107 mmol/L LAB 2028-9(LOINC) CO2 SerPl-sCnc 27 22-30 mmol/L LAB 79766-4(LOINC) Anion Gap SerPl-sCnc 20 High 8-15 mmol/L LAB 77032-5(LOINC) eGFRcr SerPlBld CKD-EPI 2020 10 Low >=60 mL/min/1. 73m??? Result Comment: Estimated Gl omerular Filtration Rate (eGFR) is calculated using the 2020 CKD-EPI creatinine equation. This equation utilizes serum creatinine, sex, and age as parameters. The creatinine assay has traceable calibration to isotope dilution-mass spectrometry. Refer to KDIGO guidelines for clinical interpretation. In patients with unstable renal function, e.g. those with acute kidney injury, the eGFR may not accurately reflect actual GFR. Performed By: #### 59963-1 # ### [facility] CLIA [id number] [address] [place] [address] [place] PL[place] CARE Observed: 06/07/2025 4:57 PM Status: COMPLETED Source: [facility] HNO ID: [id number] Author: Arline BRITTON MD Service: General Internal Medicine Author Type: Resident Type: Plan of Care Filed: 06/07/2025 16:58 Note Text: Left chest wall swelling Spoke to Dr. Rubio (Thoracics resident on-call) - kindly reviewed CT chest and imaging not c/w hematoma. Can consider symptomatic treatment, chest wall wrapping. No further action/imaging/intervention needed. Arline Britton MD Internal Medicine Resident, PGY-2 [facility] (click to page) 06/07/2025 ALLIED HEALTH Observed: 06/07/2025 4:49 PM Status: COMPLETED Source: [facility] HNO ID: [id number] Author: SHANNON HOOD Music Therapist Service: Music Therapy Author Type: Therapist Type: Allied Health Filed: 06/07/2025 17:00 Note Text: MUSIC THERAPY NOTE SERVICE DATE: 06/07/2025 SERVICE TIME: 3:10 - 4:10 PM Referred By: Rehab Therapies Reason for Referral: Coping Skills Session Type: Initial (of this admission) Time Spent (minutes): 60 GOALS: Goals: Build Rapport, Improve Mood, Improve Coping, Increase Self-expression, Promote Feelings of Control, Provide Emotional Support Coping Items Addressed: Hospitalization INTERVENTIONS: Interventions: Making Choices, Music Discussion, Music Facilitated Reminiscence, Music Listening, Singing, Therapeutic Use of Self/Verbal Processing Making Choices: Songs, Interventions Listening Type: Live, Recorded Response Before After Pain 4 01/06 Anxiety 11/08 11/08 Mood 11/02 10/02 Facial Behavior 1 - Neutral 0 - Smiling Body Movement 0 - No Movement/Appropriate Movement 0 - No Movement/Appropriate Movement Sleep N/A - Awake N/A - Awake Vocal 1 - Neutral/No Vocal 0 - Positive Scale: 0 = No pain/anxiety 10 = Worst possible pain/anxiety RESPONSE: Music Choices: Made Choices Number of Choices: 4 Response During Interventions: Knew Songs Music Used: Believe For It, I Really Love the Lord, If You're Talking About Hector (Ke Grover Youtube video) Style of Music: Gospel Family Present: No Patient's Verbal Response: Positive OUTCOME: Goals: Met FOLLOW UP: Will Continue to Follow Music therapy referral received and appreciated. Familiar with pt from multiple previous admissions. RAY-ABBIE entered room and found pt resting in recliner chair. Pt opened eyes to greeting and welcomed visit. Pt reported so so mood and some anxiety over uncertainty of discharge plan and new swelling. He expressed disappointment and frustration over quick re-admission after recent extended admission. As we were catching up, pt was scratching his back and discovered a wound was bleeding. Nursing came to bedside to assess. Doctor also came in and informed pt of plan to keep him admitted overnight. Pt upset by these perceived setbacks, appropriately tearful, described it as a here we go again moment. Provided supportive listening and validation of emotions. Pt expressed preference for therapist to choose a song for music listening. Therapist chose Gospel song with encouraging lyrics, and provided live singing/guitar accompaniment while pt listened actively and expressed emotion through tears. After song pt commented positively and displayed brightened affect. Visit proceeded with pt vocalizing / teaching this therapist a song that we shared together during last admission. Pt then shared that his soul needed an old school gospel song, and he chose a nostalgic Youtube video of a preferred rim buster preaching and singing in a devotional style. We watched about 10 minutes of the video together, while pt expressed spirituality through raising arms, closing eyes, and speaking out loud to God. Afterwards pt reported feeling better in my spirit, and expressed gratitude for visit. Music Therapy will continue to follow. SIGNATURE: Shannon Hood Music Therapist PATIENT NAME: Elia Weston DATE: June 07, 2025 TIME: 4:49 PM PAGER/CONTACT #: [phone] THERAPY NT Observed: 06/07/2025 4:40 PM Status: COMPLETED Source: [facility] ID: [id number] Author: MARÍA ESPARZA, PT, DPT Service: Physical Therapy Author Type: Bicycle Subassembler Type: Therapy (PT/OT/Speech/Resp) Filed: 06/08/2025 07:34 Note Text: Attestation signed by María Esparza PT, DPT at 06/08/2025 7:34 AM I reviewed and agree with the documentation corresponding to this therapy visit. SIGNATURE: María Esparza PT DPT DATE: June 08, 2025 TIME: 7:34 AM PHYSICAL THERAPY MISSED VISIT SERVICE DATE: 06/07/2025 SERVICE TIME: 1638 ROOM: [place] [id number] Patient not seen due to Patient Not Available, nsg performing dressing changes at bedside. SIGNATURE: Artie Chi PTA PATIENT NAME: Elia Weston DATE: June 07, 2025 TIME: 4:40 PM PROGRESS Observed: 06/07/2025 3:51 PM Status: COMPLETED Source: [facility] HNO ID: [id number] Author: RIVAS SOLITARIO MD Service: General Internal Medicine Author Type: Physician Type: Progress Notes Filed: 06/07/2025 19:41 Note Text: Internal Medicine Progress Note Patient Name: Elia Weston Patient Location: [place] [id number] Admission Date: 05/31/2025 Length of Stay: 7 Primary Service: JEFFREY Haq Staff: Rivas Solitario MD From 5pm - 7am, [place] [phone]. INTERVAL HISTORY: Due to swelling in left breat, will keep one more day due to patient concern and small chance of hematoma in setting of warfarin. Plan to reach out to plastics and plan for dc tomorrow. OBJECTIVE MEDICATIONS: Current Facility-Administered Medications Medication Dose Route Frequency NaCl 0.9% iv flush bag 20 mL INTRAVENOUS PRN acetaminophen 650 mg tab(s) (TYLENOL) 650 mg ORAL/FEEDING TUBE q 6 H PRN aspirin 81 mg chewable tab(s) 81 mg ORAL DAILY midodrine 20 mg tab(s) (PROAMATINE) 20 mg ORAL q 8 H bisacodyl EC 10 mg tab(s) (DULCOLAX) 10 mg ORAL BID senna 17.2 mg tab(s) (SENOKOT) 17.2 mg ORAL/FEEDING TUBE BID busPIRone 5 mg tab(s) (BUSPAR) 5 mg ORAL DAILY cinacalcet 30 mg tab(s) (SENSIPAR) 30 mg ORAL DAILY sevelamer carbonate 800 mg tab(s) (RENVELA) 800 mg ORAL TID w MEALS ascorbic acid 500 mg chewable tab(s) 500 mg ORAL DAILY B Complex-Vitamin C-Folic Acid 1 tablet tab(s) (JOHNSON-VIT) 1 tablet ORAL DAILY calcitriol 1.5 mcg cap(s) (ROCALTROL) 1.5 mcg ORAL MO-WE-FR melatonin 9 mg tab(s) 9 mg ORAL AT BEDTIME pyridoxine (vitamin B6) 50 mg tab(s) (VITAMIN B6) 50 mg ORAL DAILY vitamin A 10,000 Units cap(s) (AQUASOL A) 10,000 Units ORAL DAILY cholecalciferol 5,000 Units tab(s) (VITAMIN D3) 5,000 Units ORAL/FEEDING TUBE DAILY clobetasol topical ointment 0.05% (TEMOVATE) TOPICAL BID diazePAM 2.5 mg injection (VALIUM) 2.5 mg INTRAVENOUS q 12 H PRN fentaNYL 50 mcg/mL 25 mcg injection (SUBLIMAZE) 25 mcg INTRAVENOUS DAILY PRN fentaNYL 50 mcg/mL 50 mcg injection (SUBLIMAZE) 50 mcg INTRAVENOUS DAILY PRN ondansetron (PF) 4 mg injection (ZOFRAN) 4 mg INTRAVENOUS q 6 H PRN oxyCODONE IR 15 mg tab(s) (ROXICODONE) 15 mg ORAL/FEEDING TUBE q 4 H PRN dextrose 15 gram/32 mL 15 g (TRUEPLUS) 15 g ORAL PRN Or glucagon 1 mg injection 1 mg INTRAMUSCULAR PRN Or dextrose 10% iv bolus 12.5 g INTRAVENOUS PRN midodrine 10 mg tab(s) (PROAMATINE) 10 mg ORAL PRN DIALYSIS polyethylene glycol 3350 17 g packet 17 g ORAL BID warfarin order for discharge OTHER PRN warfarin (COUMADIN) tab(s) 4 mg 4 mg ORAL/FEEDING TUBE DAILY - WARFARIN warfarin (COUMADIN) tab(s) 4 mg 4 mg ORAL/FEEDING TUBE ONCE - WARFARIN ALLERGIES: Gabapentin and Trazodone PHYSICAL EXAM: Vital Signs (last filed) Range in last 24h Temp: 36.2 ?C (97.2 ?F) (06/07/251536) Temp Min: 36.2 ?C (97.2 ?F) Max: 36.4 ?C (97.5 ?F) Pulse: 66 (06/07/25843) Pulse Min: 66 Max: 124 Resp: 18 (06/07/25843) Resp Min: 18 Max: 19 BP: 99/69 (06/07/251536) BP Min: 99/69 Max: 113/73 MAP Non Invasive (Mean Arterial Pressure): 76 (06/07/251536) MAP Non Invasive (Mean Arterial Pressure) Min: 76 Max: 87 No data recorded SpO2: 100 % (06/07/25843) SpO2 Min: 90 % Max: 100 % Pain Level: 5 (06/07/25 1152) General: obese, nontoxic-appearing CV: RRR, normal S1, S2, no S3 or S4 Resp: CTA BL, no wheezing or crackles Abd: Soft, nontender, nondistended MSK: Improvement in swelling in the left upper extremity. Tenderness in the medial left thigh. No leg edema Lines, Drains, and Airways Line Duration Dialysis / Apheresis Double Lumen 04/29/25 1005 [facility] Tunneled Right Internal Jugular 39 days Peripheral 05/31/25 0223 [facility] Short Left Forearm 20 Gauge 7 days Peripheral 06/02/25 0100 [facility] Right Forearm 20 Gauge 5 days Intake/Output 06/04/25 0700 - 06/05/25 0659 06/05/25 0700 - 06/06/25 0659 06/06/25 0700 - 06/07/25 0659 Intake (ml) 240 780 -- Output (ml) 3500 -- 3200 Net (ml) -3260 780 -3200 Last Weight: 126.1 kg (278 lb) (06/05/25 1822) Admit Weight: 125.6 kg (276 lb 14.4 oz) (05/31/25 0935) LABS: CBC: Recent Labs 06/07/25 0953 06/06/25 0641 06/05/25 1501 06/04/25 0656 06/03/25 0725 06/02/25 0053 06/01/25 0715 WBC 4.11 3.99 3.87 3.60* 3.65* 3.76 4.67 HB 8.4* 8.1* 8.6* 8.2* 7.6* 7.7* 7.2* HCT 27.7* 26.6* 27.9* 26.8* 24.6* 24.4* 23.3* PLT 117* 131* 147* 176 193 186 172 MCV 95.8 96.7 97.2 95.7 95.0 93.5 94.3 RDWCV 17.5* 17.5* 17.2* 17.4* 17.8* 18.5* 18.1* NEUTP -- -- -- -- -- -- 54.8 ABSNEUT -- -- -- -- -- -- 2.56 LYMPHP -- -- -- -- -- -- 19.9 MONOP -- -- -- -- -- -- 18.2 EODINP -- -- -- -- -- -- 5.6 BMP: Recent Labs 06/07/25 0953 06/06/25 0641 06/05/25 1501 06/04/25 0656 06/03/25 0725 06/02/25 0054 06/01/25 0715 GLUC 75 84 87 81 88 88 78 NA 140 141 140 142 138 138 138 K 4.5 4.9 4.8 4.5 4.7 4.8 5.0 CHLOR 98 99 97* 97* 96* 96* 96* CO2 29 26 26 28 26 27 21* ANION 13 16* 17* 17* 16* 15 21* BUN 16 28* 23 16 33* 23 52* CREAT 5.58* 7.94* 7.10* 5.22* 8.05* 5.85* 10.43* CHEM: Recent Labs 06/07/25 0953 06/06/25 0641 06/05/25 1501 06/04/25 0656 06/03/25 0725 06/02/25 0054 06/01/25 0715 ALB 3.7* 3.7* 3.8* 3.7* 3.6* 3.6* 3.4* TPROT 7.4 7.2 7.7 7.4 7.2 7.0 6.8 CA 8.7 8.0* 8.5 8.5 7.8* 7.7* 7.0* HEPATIC: Recent Labs 06/07/25 0953 06/06/25 0641 06/05/25 1501 06/04/25 0656 06/03/25 0725 06/02/25 0054 06/01/25 0715 ALKPHOS 131* 132* 141* 146* 126* 132* 124* ALT 12 12 17 17 13 10 9* AST 22 26 29 30 31 21 20 TBILI 0.4 0.3 0.3 0.3 0.3 0.3 0.3 COAG: Recent Labs 06/07/25 0953 06/06/25 0641 06/05/25 1501 06/04/25 0656 06/03/25 0725 06/02/25 0054 06/02/25 0050 06/01/25 1605 06/01/25 0715 06/01/25 0003 05/31/25 1726 APTT -- -- -- -- -- -- 41.9* 73.5* 67.0* 48.5* 48.6* INR 3.2* 3.4* 2.6* 2.8* 2.5* 2.0* -- -- 1.8* -- -- URINALYSIS: No results for input(s): PH, SPGR, UGLUC, UBILI, UKET, UHB, UPROT, UROBIL, UWBC, SSA in the last 168 hours. Invalid input(s): NITR CARDIAC: No results for input(s): CKTEST, CKMB, CKMBP, TROPT, PBNP in the last 168 hours. MICROBIOLOGY: Reviewed. Pertinent findings under AANDP. IMAGING: Reviewed. Pertinent findings under AANDP. 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 #Left medial thigh mass Patient with recent leadless pacemaker placement via the left femoral vein, now presents with a painful left thigh mass. CT of the lower extremities was performed and is unremarkable, ruling out pseudoaneurysm, active arterial bleed, AV fistula, arterial occlusion or thrombosis. This is reassuring given his recent invasive vascular procedure and anticoagulation status. Despite these findings, important to rule out hematoma which is plausible given the trauma, anticoagulation, and femoral venous access history. Other potential causes include muscle injury or strain, seroma formation post procedurally. Additionally given his ESRD and history of chronic wounds with intermittent infection, DVT and soft tissue infection or abscess must be carefully considered. Absence of systemic signs make abscess less likely. He is anticoagulation with warfarin fluctuating INR, and recent fall increases the risk of bleeding complications such as hematoma formation. Ultrasound GROIN MIKE indicated negative for for pseudoaneurysm, deep vein thrombosis, hematoma and arteriovenous Fistula bilaterally, right side. Plan - Repeat imaging only if symptoms persist or worsen, potentially f/u US w/outpatient or inpatient if no discharge #Fall Patient experienced a fall going up the stairs, falling is likely mechanical. Less likely to be due to true syncope or seizure disorder. Patient has multiple chronic conditions that predispose him to falls including chronic hypertension that is managed with midodrine, ESRD on dialysis, anemia and overall deconditioning from prolonged hospitalization. There is currently no evidence of head trauma or neurologic deficits. PT anticipates that pt will be able to return home without any physical therapy need Plan - Evaluate orthostatic vitals, possibly following dialysis session - Tylenol 650 mg every 6 as needed and oxycodone 15 mg p.o. every 4 as needed - Fall precautions #Severe mitral stenosis s/p MVR On-X , posterior mitral annulus patch #CAD s/p CABG #pAF on warfarin on warfarin s/p cryomaze, RADHA ligation 08/21/21 #Erratic INR #Second-degree AV block, Mobitz type I s/p leadless pacemaker 05/23 - Last TTE 05/06/25 EF 60%, LV hypertrophy, normal right ventricle, trace tricuspid valve regurg, trace pulmonic valve regurg. - During prior admission, patient presented with self supratherapeutic INR and anemia requiring transfusion. Warfarin was held, and after correction with blood products and Vit K, INR became subtherapeutic. Patient was started on a heparin drip and resumed on warfarin, but INR remained labile, requiring frequent adjustments. In the days leading up to discharge, heparin was restarted under a stroke protocol with gradual INR stabilization. Patient was discharged on warfarin 5 mg with the plan of close outpatient follow up in warfarin clinic. - On recent admission, patient had multiple episodes of bradycardia with associated hypotension, EKGs showed sinus rhythm with second-degree AV block, Mobitz type I. Patient underwent leadless pacemaker with EP (05/23), no reported complications. 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 Previous imaging showed no drainable collection but extensive venous collaterals due to central. History notable for repeated TDC placements, with bilateral subclavian and brachiocephalic vein occlusions. 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 Etiology of nonhealing ulcer was attributed to ischemic vasculopathy in the setting of ESRD/hypertension/vasculopathy/malnutrition. - Previous workup revealed severe Vitamin A, B1, C, D and Iron deficiens. Previously evaluated by plastics with no recommended surgical intervention. - DVT US of the left upper extremity is unrevealing. Plan - Previously recommended the following - Vitamin D supplement 5000 units - Ascorbic acid 500mg/day - Vit B6 50 mg/day - Vitamin A 10,000 units/day - Plastic/wound care consult; chest wound dressings to be changed daily, encourage patient to continue this - Cautious fluid resuscitation iso previous history of bleeding on ESRD on HD # ESRD on HD via right TDC (MWF) # Secondary hyperparathyroidism # Anemia - Patient missed dialysis session 05/30 due to left LE pain. Patient anuric at baseline per patient. Previous PTH elevated 181, Ca 8.2 low, Na 142, K 4.6, BUN 45, Cr 8.9. Patient has anemia of chronic disease, on weekly aranesp. Patient also on calcitriol, Sensipar, Renvela. Patient has history of low blood pressure, SBP 90s, intermittently responsive to fluids, patient on midodrine 20 mg 3 times daily. -Hgb baseline 06-09. - Repeat CXR with pulmonary edema. Plan - Continue MWF HD schedule - Will give additional HD Wednesday 06/06 - Consider repeating chest x-ray prior to discharge to evaluate for resolution of pulmonary edema - Continue calcitriol MWF - Continue weekly Aranesp - Next IHD 06/01 - Continue Sensipar, Renvela with meals - Continue home midodrine - Monitor I/Os and daily weights - Fluid restriction < 1L - Avoid Lovenox, morphine, K-containing IVF, Mg- or Phos-containing enemas # Constipation -Continue Dulcolax twice daily -Continue MiraLAX as once daily -Continue senna 17.2 mg twice daily #Adjustment disorder? #Low mood Continue buspirone #Code status -full # Diet -renal # VTE PPx -warfarin 5mg # Dispo Planning - TBD Morbid Obesity Class 3 Medication Reconciliation: Completed Medication and Non-Pharmacologic VTE Prophylaxis/Anticoagulants Anticoagulant AND Antiplatelet Medications (From admission, onward) Start Dose Route Frequency Last Action Ordered Stop 06/07/25 1700 warfarin (COUMADIN) tab(s) 4 mg 4 mg PO/FT ONCE - WARFARIN Ordered 06/07/25 1544 06/08/25 0459 06/06/25 1700 warfarin (COUMADIN) tab(s) 4 mg 4 mg PO/FT DAILY - WARFARIN Given, 06/06 1736 06/06/25 1255 06/13/25 1659 05/31/25 1300 aspirin 81 mg chewable tab(s) 81 mg PO DAILY Given, 06/07 1053 05/31/25 1233 -- 05/31/25 1145 activity - mobilize patient (nj,ms) VTE Prophylaxis: VTE prophylaxis appropriate Harris Dennis MD Internal Medicine, PGY-1 ATTENDING PHYSICIAN: Patient seen and evaluated today Mendoza elements of history and physical examination of the patient were confirmed. The assessment and plan were formulated and discussed with the team on Rounds. I reviewed the resident's note, examined the patient and agree with the documented findings and plan of care. Patient feels he is still fluid overloaded. And wants to feel a little stronger before he can go for his dialysis appointment as outpatient INR 3,2 today will give warfarin 4 mg dose Patient complained of increased swelling left side of chest and axillary region on examination appears to be soft-Will continue to monitor hemoglobin and vital signs-CT chest obtained Will order ultrasound for possible better definition of the swelling on the right side and will discuss with surgical team Plan of care discussed with: Provider, RN, Patient and residents . Rivas Solitario MD [facility] [phone] PT PNL PPP Collected: 06/07/2025 9:53 AM Status: F Source: [facility] Order Comment: Specimen Type : BLOOD SPECIMEN Ordering Facility: [facility] Address: [address] [place] [address] TYPE CODE TESTS RESULT OUT OF RANGE REFERENCE UNITS LAB 5902-2(LOINC) Prothrombin time 31.7 High 9.7-13.0 sec LAB 6301-6(LOINC) INR PPP 3.2 High 0.9-1.3 Result Comment: Vitamin K An tagonist (VKA) Therapeutic Range: INR 2 to 3 (Target INR of 2.5) Note: For patients treated with VKA drugs, such as warfarin, the [place] College [employer] 2012 Guideline recommends a therapeutic INR range of 2 to 3 (target INR of 2.5). This recommendation includes high-risk patients with antiphospholipid syndrome with previous arterial or venous thromboembolism, current-generation mechanical or bioprosthetic aortic heart valve replacement. Note: Patients with mechanical aortic valve replacement and additional risk factors for thromboembolic events (atrial fibrillation, previous thromboembolism, LV dysfunction, hypercoagulable conditions) or an older generation mechanical AVR (i.e., ball in-Cage) or any mechanical MVR should have a INR therapeutic range of 2.5 to 3.5 (target INR of 3). Ranjit YOUSSEF, et al. Chest 2012, 141:7S-47S Kevin RUSHING, et al. [facility] 2017, 70: 252-289 Performed By: #### 68450-3 # ### [facility] CLIA [id number] [address] [place] [address] [place] [address] [place] COMP METAB 2000 PNL SERPL Collected: 9:53 AM Status: F Source: [facility] Order Comment: Specimen Type : BLOOD SPECIMEN Ordering Facility: [facility] Address: [address] [place] [address] TYPE CODE TESTS RESULT OUT OF RANGE REFERENCE UNITS LAB 2885-2(LOINC) Prot SerPl-mCnc 7.4 6.3-8.0 g/dL LAB 1751-7(LOINC) Albumin SerPl-mCnc 3.7 Low 3.9-4.9 g/dL LAB 83084-2(LOINC) Calcium SerPl-mCnc 8.7 8.5-10.2 mg/dL LAB 1975-2(LOINC) Bilirub SerPl-mCnc 0.4 0.2-1.3 mg/dL LAB 6768-6(LOINC) ALP SerPl-cCnc 131 High 38-113 U/L LAB 1920-8(LOINC) AST SerPl-cCnc 22 14-40 U/L LAB 1742-6(LOINC) ALT SerPl-cCnc 12 10-54 U/L LAB 2345-7(LOINC) Glucose SerPl-mCnc 75 74-99 mg/dL Result Comment: The [place] [employer] (ADA) provides guidance for cutoff values for fasting glucose and random glucose. The ADA defines fasting as no caloric intake for at least 8 hours. Fasting plasma glucose results between 100 to 125 mg/dL indicate increased risk for diabetes (prediabetes). Fasting plasma glucose results greater than or equal to 126 mg/dL meet the criteria for diagnosis of diabetes. In the absence of unequivocal hyperglycemia, results should be confirmed by repeat testing. In a patient with classic symptoms of hyperglycemia or hyperglycemic crisis, random plasma glucose results greater than or equal to 200 mg/dL meet the criteria for diagnosis of diabetes. Reference: Standards of Medical Care in Diabetes 2016, [place] [employer]. Diabetes Care. 2016.39(Suppl 1). LAB 3094-0(LOINC) BUN SerPl-mCnc 16 9-24 mg/dL LAB 2160-0(LOINC) Creat SerPl-mCnc 5.58 High 0.73-1.22 mg/dL LAB 2951-2(LOINC) Sodium SerPl-sCnc 140 136-144 mmol/L LAB 2823-3(LOINC) Potassium SerPl-sCnc 4.5 3.7-5.1 mmol/L LAB 2075-0(LOINC) Chloride SerPl-sCnc 98 98-107 mmol/L LAB 2028-9(LOINC) CO2 SerPl-sCnc 29 22-30 mmol/L LAB 59939-8(LOINC) Anion Gap SerPl-sCnc 13 8-15 mmol/L LAB 99635-7(LOINC) eGFRcr SerPlBld CKD-EPI 2020 12 Low >=60 mL/min/1. 73m??? Result Comment: Estimated Gl omerular Filtration Rate (eGFR) is calculated using the 2020 CKD-EPI creatinine equation. This equation utilizes serum creatinine, sex, and age as parameters. The creatinine assay has traceable calibration to isotope dilution-mass spectrometry. Refer to KDIGO guidelines for clinical interpretation. In patients with unstable renal function, e.g. those with acute kidney injury, the eGFR may not accurately reflect actual GFR. Performed By: #### [id number] # ### [facility] CLIA [id number] [address] [place] [address] [place] CBC PNL BLD AUTO Collected: 5 9:53 AM Status: F Source: [facility] Order Comment: Specimen Type : BLOOD SPECIMEN Ordering Facility: [facility] Address: [address] [place] [address] TYPE CODE TESTS RESULT OUT OF RANGE REFERENCE UNITS LAB 6690-2(LOINC) WBC # Bld Auto 4.11 3.70-11.00 k/uL LAB 789-8(LOINC) RBC # Bld Auto 2.89 Low 4.20-6.00 m/uL LAB 718-7(LOINC) Hgb Bld-mCnc 8.4 Low 13.0-17.0 g/dL LAB 4544-3(LOINC) Hct VFr Bld Auto 27.7 Low 39.0-51.0 % LAB 787-2(LOINC) MCV RBC Auto 95.8 80.0-100.0 fL LAB 785-6(LOINC) MCH RBC Qn Auto 29.1 26.0-34.0 pg LAB 786-4(LOINC) MCHC RBC Auto-mCnc 30.3 Low 30.5-36.0 g/dL LAB 25839-2(LOINC) RDW RBC-Rto 17.5 High 11.5-15.0 % LAB 777-3(LOINC) Platelet # Bld Auto 117 Low 150-400 k/uL Result Comment: Results chec ked and verified.No clot detected. LAB 32628-8(LOINC) PMV Bld Auto 11.7 9.0-12.7 fL LAB 771-6(LOINC) nRBC # Bld Auto <0.01 <0.01 k/uL Performed By: #### [id number] # ### [facility] CLIA [id number] [address] [place] [address] CASE MANAGEM Observed: 06/07/2025 9:44 AM Status: COMPLETED Source: [facility] HNO ID: [id number] Author: KALANI DIEGO RN Service: Care Management Author Type: Registered Nurse Type: Care Mgt Progress Note Filed: 06/07/2025 09:53 Note Text: CARE MANAGEMENT DISCHARGE NOTE SERVICE DATE: 06/07/2025 SERVICE TIME: 9:44 AM LOS: 7 days Needs Prior to Discharge: Ready for Discharge Per primary team, pt is medically ready for dc today. Pt has no skilled needs noted to date. Pts family will provide dc transport. Pt aware and agreeable to dc plan. IMM given 06/06. *Please note* New Standard of Care: The dc lounge is a designated area for dc'd pts who are waiting for their ride home. This area is best suited for pts who can sit for an extended period and require minimal ambulatory assistance. Medications and equipment, such as O2, can be delivered to the pt while waiting in the dc lounge, provided the delivering service is aware of pts location. Pts will have the ability to order a free lunch while waiting, if applicable. An scheduler maintenance is also available to pts in the dc lounge. The lounge is not suitable for patients who require medication, isolation or treatment between discharge and pickup as well as those individuals with disruptive behavior or bladder/bowel incontinence. Dc Lounge Hours: M-F [phone]; for a weekend dc or dc after-hours Red Coat Attendants are available to assist. If your pt is eligible to utilize the dc lounge, please make pt aware that waiting in the dc lounge is the new standard of care at [facility] and place the order prior to dc. SIGNATURE: Kalani Diego RN PATIENT NAME: Elia Weston DATE: June 07, 2025 TIME: 9:44 AM NURSING PROG Observed: 06/06/2025 11:10 PM Status: COMPLETED Source: [facility] HNO ID: [id number] Author: ANTOLIN FINLEY RN Service: ? Author Type: Registered Nurse Type: Nursing Progress Note Filed: 06/06/2025 23:14 Note Text: Trending of last 3 clinical abnormalities associated with Severe Sepsis or Septic Shock 06/06/2025201106/06/2025223306/06/20252303 Temp: -- -- 36.4 ?C (97.5 ?F) Pulse: 83 124 102 Resp: 18 -- 19 BP: 113/82 -- 112/68 MAP: 87 -- 80 O2 Sat: 99 % -- 90 % Abnormal Labs Indicating Infection/Organ Failure in the Last 24 Hours WBC (k/uL) Date Value 06/06/2025 3.99 CREAT (mg/dL) Date Value 06/06/2025 7.94 (H) INR (no units) Date Value 06/06/2025 3.4 (H) 2644 Eva Pimentel MD notified. THERAPY NT Observed: 06/06/2025 5:13 PM Status: COMPLETED Source: [facility] HNO ID: [id number] Author: JAQUELINE OLMSTEAD PT Service: Physical Therapy Author Type: Bicycle Subassembler Type: Therapy (PT/OT/Speech/Resp) Filed: 06/07/2025 08:00 Note Text: Attestation signed by Jaqueline Olmstead PT at 06/07/2025 8:00 AM I reviewed and agree with the documentation corresponding to this therapy visit. SIGNATURE: Jaqueline Olmstead PT DATE: June 07, 2025 TIME: 8:00 AM PHYSICAL THERAPY MISSED VISIT SERVICE DATE: 06/06/2025 SERVICE TIME: 849 ROOM: [place] [address] Patient not seen due to Test / Procedure, to SIGNATURE: Artie Chi PTA PATIENT NAME: Elia Weston DATE: June 06, 2025 TIME: 5:13 PM PLAN OF CARE Observed: 06/06/2025 4:45 PM Status: COMPLETED Source: [facility] HNO ID: [id number] Author: NANCY MEEK ? Service: Pharmacy Author Type: Anvil Worker Type: Plan of Care Filed: 06/06/2025 16:45 Note Text: Insurance investigation completed Patient has active prescription insurance: Yes - Patient's insurance is in-network with [facility] Insurance loaded into [place]: Yes Test claim was completed to verify insurance is active: Successful Is patient eligible for [facility] [place]? No Any questions, please reach out to your medication auto accessories installer. PROGRESS Observed: 06/06/2025 4:34 PM Status: COMPLETED Source: [facility] HNO ID: [id number] Author: JARETH MARK Tech Service: Radiology Author Type: Technologist Type: Progress Notes Filed: 06/06/2025 16:34 Note Text: Radiology Service Progress Note PATIENT NAME: Elia Weston DATE OF SERVICE: June 06, 2025 TIME: 4:34 PM PATIENT IDENTITY VERIFICATION COMPLETED USING TWO (2) IDENTIFIERS: Name and Date of confirmed by patient verbally and Name and Date of confirmed by identification band. FALL SCREENING: Has the patient had 2 falls in the last year or 1 fall with injury or currently using an Ambulatory Assistive Device (Walker, Cane, Wheelchair, Crutches, etc.)? Inpatient: Screened on floor PATIENT GENDER DATA: Assigned male at PATIENT RELEVANT IMPLANT DATA REVIEWED: Not Applicable PATIENT PRESENTS WITH AN IMPLANTABLE OR ATTACHED EMBEDDED SOFTWARE ARCHITECT: No RADIOLOGY DEPARTMENT: CT; Exam(s) Completed: Chest. Anesthesia: No PERIPHERAL IV DATA: Not applicable SIGNED BY: Camilo Pepe June 06, 2025 4:[address] CHEST WO IVCON Observed: 06/06/2025 4:31 PM Status: F Source: [facility] * * *Final Report* * * DATE OF EXAM: Jun 06 2025 4:31PM [facility] 0541 - CT CHEST WO IVCON / PROCEDURE REASON: hematoma concern * * * * Physician Interpretation * * * * EXAMINATION: CHEST CT WITHOUT CONTRAST CLINICAL HISTORY: 45-year-old male with a history of end-stage renal disease on dialysis, hypertension, SVC syndrome and brachiocephalic chronic occlusive disease admitted with a painful left thigh mass. Assess for hematoma in the left chest wall. Technique: Spiral CT acquisition of the chest from the thoracic inlet to the upper abdomen without contrast. MQ: [id number] CT Radiation dose: Integrated Dose-length product (DLP) for this visit = 520 mGy*cm CT Dose Reduction Employed: mAs-kVp adjusted based on patient size-age Comparison: Chest CT exams dated 04/22/2025 and 10/19/2024; chest radiograph dated 06/02/2025 RESULT: Limitations: Respiratory motion. The lower left lateral chest wall is incompletely imaged. Lines, tubes, and devices: The tip of a right IJ catheter terminates in the right atrium. A leadless pacemaker device is noted in the right ventricle.. Lung parenchyma and airways: Images of the lungs are degraded by respiratory motion. There are mild dependent groundglass and reticular opacities at the lung bases, most consistent with subsegmental atelectasis. No consolidation. A 4 mm right upper lobe nodule (4:33) has developed since the prior chest CT dated 04/22/2025. The 2 mm right upper lobe nodule which was new on the prior chest CT dated 04/22/2025 has resolved in the interval. No definite pulmonary edema. The central airways are patent without suspicious endobronchial lesion. Pleural space: No definite pleural effusion or pleural thickening. No pneumothorax. Lower neck, lymph nodes, and mediastinum: The imaged thyroid gland is unremarkable. No supraclavicular lymphadenopathy. There is persistent bilateral axillary lymphadenopathy. For reference, a right axillary lymph node measures 1.4 cm short axis (3:90 and a left axillary lymph node (3:88) measures 1.5 cm in short axis, unchanged since 04/22/2025. A borderline enlarged 1 cm in short axis para-aortic lymph node (3:67) is mildly larger, previously measuring 0.7 cm in short axis on the prior chest CT. No definite hilar lymphadenopathy. The esophagus is decompressed. Heart, pericardium, and thoracic vessels: Mild atherosclerosis is present within the thoracic aorta which is normal in caliber measuring 3.2 cm in the mid ascending segment. The main pulmonary artery is upper limits of normal for size measuring 2.8 cm in diameter. Coarse calcifications are present in the right brachiocephalic vein and SVC, unchanged. The left brachiocephalic vein is atretic, unchanged. The azygos vein is dilated, unchanged. There are coarse mitral annulus calcifications. The patient is status post mitral valve replacement. The left atrium is dilated. No pericardial effusion. Bones and soft tissues: The sternum is well opposed by median sternotomy wires. No destructive lytic or blastic bone lesion. There is partially imaged S-shaped curvature of the thoracolumbar spine. Mild degenerative changes are present throughout the imaged spine. There are extensive collateral vessels in the anterior, lateral, and posterior chest wall bilaterally, unchanged. There is new ill-defined stranding within the subcutaneous tissue of lower left chest wall (3:146) compared to the prior chest CT. A portion of this region laterally is outside the aqemr-eb-gqbl of this exam. No discrete fluid collection identified. Upper abdomen: There is a coarse calcification in the right kidney. Otherwise, the imaged solid abdominal organs are unremarkable on this noncontrast exam. Localizer images: There is S-shaped scoliosis of the thoracolumbar spine. IMPRESSION: 1. New ill-defined stranding in the lower left lateral chest wall since the prior chest CT dated 04/22/2025 which is partially outside the bctdg-af-dalg of this exam. This finding is nonspecific and is most commonly due to soft tissue edema/anasarca although a component of hemorrhage could have a similar CT appearance (if the patient recently had trauma to this region). No discrete fluid collection. 2. Extensive collateral vessels within the chest wall bilaterally have not substantially changed compared to the prior chest CT. The patient has a known history of central venous stenosis/occlusion including coarse calcifications in the right brachiocephalic vein and SVC (likely fibrin sheath) and an atretic appearing left brachiocephalic vein, incompletely assessed on this noncontrast exam. 3. A 4 mm right upper lobe pulmonary nodule is new since 04/22/2025 which is probably infectious/inflammatory in etiology given rapid development. A 2 mm right upper lobe pulmonary nodule which was new on the prior chest CT has resolved. 4. Unchanged nonspecific bilateral axillary lymphadenopathy. A borderline enlarged para-aortic lymph node is larger compared to the prior chest CT. Residential Driver: PSCB Transcribe Date/Time: Jun 06 2025 4:41P Dictated by : BENITO HAQUE MD This examination was interpreted and the report reviewed and electronically signed by: BENITO HAQUE MD on Jun 06 2025 5:06PM EST [id number] CONSULT PROG Observed: 06/06/2025 1:53 PM Status: COMPLETED Source: [facility] ID: [id number] Author: CAMILO NORTON PA-C Service: Nephrology Author Type: Physician Teacher Tutor Type: Consult Progress Note Filed: 06/06/2025 13:55 Note Text: Department of Kidney Medicine [facility] Special[facility] [place] [facility] Q6 NEPHROLOGY CONSULT SERVICE PROGRESS NOTE INTERVAL HISTORY: - seen on HD tolerating well UF 3.5L - d/c after HD today - had IUF Friday with 3.5L removed MEDICATIONS: Current Facility-Administered Medications Medication Dose Route Frequency NaCl 0.9% iv flush bag 20 mL INTRAVENOUS PRN acetaminophen 650 mg tab(s) (TYLENOL) 650 mg ORAL/FEEDING TUBE q 6 H PRN aspirin 81 mg chewable tab(s) 81 mg ORAL DAILY midodrine 20 mg tab(s) (PROAMATINE) 20 mg ORAL q 8 H bisacodyl EC 10 mg tab(s) (DULCOLAX) 10 mg ORAL BID senna 17.2 mg tab(s) (SENOKOT) 17.2 mg ORAL/FEEDING TUBE BID busPIRone 5 mg tab(s) (BUSPAR) 5 mg ORAL DAILY cinacalcet 30 mg tab(s) (SENSIPAR) 30 mg ORAL DAILY sevelamer carbonate 800 mg tab(s) (RENVELA) 800 mg ORAL TID w MEALS ascorbic acid 500 mg chewable tab(s) 500 mg ORAL DAILY B Complex-Vitamin C-Folic Acid 1 tablet tab(s) (JOHNSON-VIT) 1 tablet ORAL DAILY calcitriol 1.5 mcg cap(s) (ROCALTROL) 1.5 mcg ORAL MO-WE-FR melatonin 9 mg tab(s) 9 mg ORAL AT BEDTIME pyridoxine (vitamin B6) 50 mg tab(s) (VITAMIN B6) 50 mg ORAL DAILY vitamin A 10,000 Units cap(s) (AQUASOL A) 10,000 Units ORAL DAILY cholecalciferol 5,000 Units tab(s) (VITAMIN D3) 5,000 Units ORAL/FEEDING TUBE DAILY clobetasol topical ointment 0.05% (TEMOVATE) TOPICAL BID diazePAM 2.5 mg injection (VALIUM) 2.5 mg INTRAVENOUS q 12 H PRN fentaNYL 50 mcg/mL 25 mcg injection (SUBLIMAZE) 25 mcg INTRAVENOUS DAILY PRN fentaNYL 50 mcg/mL 50 mcg injection (SUBLIMAZE) 50 mcg INTRAVENOUS DAILY PRN ondansetron (PF) 4 mg injection (ZOFRAN) 4 mg INTRAVENOUS q 6 H PRN oxyCODONE IR 15 mg tab(s) (ROXICODONE) 15 mg ORAL/FEEDING TUBE q 4 H PRN dextrose 15 gram/32 mL 15 g (TRUEPLUS) 15 g ORAL PRN Or glucagon 1 mg injection 1 mg INTRAMUSCULAR PRN Or dextrose 10% iv bolus 12.5 g INTRAVENOUS PRN midodrine 10 mg tab(s) (PROAMATINE) 10 mg ORAL PRN DIALYSIS polyethylene glycol 3350 17 g packet 17 g ORAL BID warfarin order for discharge OTHER PRN warfarin (COUMADIN) tab(s) 4 mg 4 mg ORAL/FEEDING TUBE DAILY - WARFARIN ALLERGIES: Gabapentin and Trazodone PHYSICAL EXAM: BP 102/68 Pulse 86 Temp 36.6 ?C (97.9 ?F) (Oral) Resp 16 Ht 175.3 cm (5' 9) Wt 126.1 kg (278 lb) SpO2 99% BMI 41.05 kg/m? Intake/Output Summary (Last 24 hours) at 06/06/2025 1353 Last data filed at 06/06/2025 1127 Gross per 24 hour Intake 540 ml Output 3200 ml Net -2660 ml Constitutional:No acute distress, awake, alert and responsive Cardiovascular:Regular rate and rhythm 1+ BLE edema Respiratory:Normal respiratory effort on RA Abdomen:Soft, non-tender, non-distended Psychiatric: Alert and oriented x self, place, time, and setting Normal mood/affect Vascular Access: Hemodialysis catheter location: Right Tunneled internal jugular. Exit site demonstrates: normal findings Lines, Drains, and Airways Line Duration Dialysis / Apheresis Double Lumen 04/29/25 1005 [facility] Tunneled Right Internal Jugular 38 days Peripheral 05/31/25 0223 [facility] Short Left Forearm 20 Gauge 6 days Peripheral 06/02/25 0100 [facility] Right Forearm 20 Gauge 4 days Labs: Recent Labs 06/06/25 0641 06/05/25 1501 06/04/25 0656 WBC 3.99 3.87 3.60* HB 8.1* 8.6* 8.2* HCT 26.6* 27.9* 26.8* PLT 131* 147* 176 INR 3.4* 2.6* 2.8* NA 141 140 142 K 4.9 4.8 4.5 CHLOR 99 97* 97* CO2 26 26 28 ANION 16* 17* 17* BUN 28* 23 16 CREAT 7.94* 7.10* 5.22* GLUC 84 87 81 CA 8.0* 8.5 8.5 Recent Labs 06/06/25 0641 06/05/25 1501 06/04/25 0656 TPROT 7.2 7.7 7.4 ALB 3.7* 3.8* 3.7* ALT 12 17 17 AST 26 29 30 ALKPHOS 132* 141* 146* TBILI 0.3 0.3 0.3 ASSESSMENT: Mr. 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 Patient underwent pacemaker placement during his most recent hospitalization he is back for concern for groin wound. Nephrology consulted for ESR management. 1.ESRD -Etiology: HTN Renal Biopsy 2005 for renal failure of undetermined etiology. 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 using an angioplasty balloon per IR iElectrolytes:-stable for ESRD iAcid base-stable iVolume status:hypervolemia iAnemia: -Multiple mechanisms, Renal anemia, and below goal, on weekly aranesp, resume if LOS>7 days or Hgb<8 iBone Mineral Disease: -Calcitriol 1.5mcg TIW, Sensipar 30mg daily, Revela 800mg TID with meals -PTH 578--> 181 PLAN: - HD today 4.5hr UF 3.5L - next fri per MWF - dose aranesp Friday if still admitted - continue calcitriol and sensipar - renvela with meals Standard ESRD recommendations and precautions: - Strict IANDOs and Daily weight - Consider a Potassium restricted (2g/day) Diet for HD patients - Fluid restriction < 1 L - Start renal multivitamin to replace water-soluble vitamins lost during dialysis - Avoid Lovenox, Morphine, K-containing IVF, Mg- or Phos- containing enemas Consent for DRYWALL SANDER: ESRD Please DO NOT schedule patient for a nephrology follow up appointment. Kidney care will be provided by the primary data warehousing engineer at their dialysis unit upon hospital discharge. Camilo Norton PA-C Department of Kidney Medicine [facility] June 06, 2025 1:53 PM PAGER # [phone] Disclosures: Parts of the current progress note may have been copied from a previous note. FOR AFTER HOUR CONCERNS BETWEEN 5PM - 7AM CONTACT ON-CALL NEPHROLOGY FELLOW [id number] NUTRITION Observed: 06/06/2025 1:49 PM Status: COMPLETED Source: [facility] HNO ID: [id number] Author: BHASKAR RAMIREZ DTR Service: Nutrition Therapy Author Type: Tractor Driver Teamster Type: Nutrition Filed: 06/06/2025 13:50 Note Text: NUTRITION THERAPY CLERICAL ORDER FILLER NOTE SERVICE DATE: 06/06/2025 SERVICE TIME: Start Time: 1320 Visit Type: Length of Stay Evaluation Goals Met: Met The patient is eating well and has a good appetite. His meal choices were limited due to diet order. It has since been changed back to a regular diet. No issues or concerns at this time. Will continue to monitor for any changes in nutritional status. Plan of Care: Diet: (Messaged team to liberalize diet.) Follow-Up: Tech Reassessment Nursing Admission Assessment Malnutrition Score: 0 Nutrition Intake: Diet Orders (From admission, onward) Start Ordered 06/06/25 1000 DIET REGULAR START NOW 06/06/25 0947 Average Daily Calorie Intake (kcal): 1999 kcal Average Daily Protein Intake (gm): 107 gm Average intake over: 5 days (The patient was on a regular diet up until 3 days ago. Foods ordered greatly declined. Patient not ordering enough to meet goals. Back on regular diet this am.) Appetite: Good GI Symptoms: None Anthropometrics: Body mass index is 41.05 kg/m?. Loss of lean body mass/visual muscle wasting: No Weight Change: Increased HEIGHT/WEIGHT/BSA Height BSA (m2) Weight 10/11/2024 2.37 m2 250 lb 10/12/2024 177 cm (5' 9.69) 2.36 m2 249 lb 1.9 oz 10/30/2024 2.41 m2 260 lb 2.3 oz 12/28/2024 2.41 m2 260 lb 2.3 oz 04/20/2025 2.38 m2 254 lb 13.6 oz 04/28/2025 2.34 m2 245 lb 13 oz 04/29/2025 2.36 m2 250 lb 7.1 oz 04/30/2025 2.39 m2 255 lb 8.2 oz 05/12/2025 177 cm (5' 9.69) 2.39 m2 255 lb 8.2 oz 05/22/2025 2.42 m2 261 lb 11 oz 05/27/2025 2.46 m2 270 lb 4.5 oz 05/31/2025 175.3 cm (5' 9) 2.47 m2 276 lb 14.4 oz 06/02/2025 2.48 m2 278 lb 06/05/2025 2.48 m2 278 lb Food Preferences: None Allergies: No food allergies MNT Billing: $ Routine Care : 1 unit SIGNATURE: Bhaskar Ramirez DTR PATIENT NAME: Elia Weston DATE: June 06, 2025 TIME: 1:49 PM CASE MANAGEM Observed: 06/06/2025 1:10 PM Status: COMPLETED Source: [facility] HNO ID: [id number] Author: KALANI DIEGO RN Service: Care Management Author Type: Registered Nurse Type: Care Mgt Progress Note Filed: 06/06/2025 13:10 Note Text: CARE MANAGEMENT DISCHARGE NOTE SERVICE DATE: 06/06/2025 SERVICE TIME: 1:10 PM LOS: 6 days Needs Prior to Discharge: Ready for Discharge IMM Follow Up Copy Given: Yes Copy given to:: Patient Method: In Person Per primary team, pt is medically ready for dc today. Pt has no skilled needs noted to date. Pts family will provide dc transport. Pt aware and agreeable to dc plan. IMM given. SIGNATURE: Kalani Diego RN PATIENT NAME: Elia Weston DATE: June 06, 2025 TIME: 1:10 PM CASE MANAGEM Observed: 06/06/2025 11:52 AM Status: COMPLETED Source: [facility] HNO ID: [id number] Author: KALANI DIEGO RN Service: Care Management Author Type: Registered Nurse Type: Care Mgt Progress Note Filed: 06/06/2025 11:53 Note Text: CARE MANAGEMENT PROGRESS NOTE SERVICE DATE: 06/06/2025 SERVICE TIME: 11:52 AM LOS: 6 days Needs Prior to Discharge: None Pt remains with no skilled needs identified to date. Pt remains on RA. Pt remains on no notable IVs. Pt remains skilled for OP therapy. Dialysis coordinator following. Pts family will provide dc transport. Pt will need IMM no later than 4 hours prior to dc (only good for 48-hours). CM to re-screen on 06/08, unless pt to dc prior. CM will continue to follow. *Please note* New Standard of Care: The dc lounge is a designated area for dc'd pts who are waiting for their ride home. This area is best suited for pts who can sit for an extended period and require minimal ambulatory assistance. Medications and equipment, such as O2, can be delivered to the pt while waiting in the dc lounge, provided the delivering service is aware of pts location. Pts will have the ability to order a free lunch while waiting, if applicable. An scheduler maintenance is also available to pts in the dc lounge. The lounge is not suitable for patients who require medication, isolation or treatment between discharge and pickup as well as those individuals with disruptive behavior or bladder/bowel incontinence. Dc Lounge Hours: M-F [phone]; for a weekend dc or dc after-hours Red Coat Attendants are available to assist. If your pt is eligible to utilize the dc lounge, please make pt aware that waiting in the dc lounge is the new standard of care at [facility] and place the order prior to dc. SIGNATURE: Kalani Diego RN PATIENT NAME: Elia Weston DATE: June 06, 2025 TIME: 11:52 AM ALLIED HEALTH Observed: 06/06/2025 10:00 AM Status: COMPLETED Source: [facility] ID: [id number] Author: LOLY GREWAL Art Therapist Service: Art Therapy Author Type: Therapist Type: Allied Health Filed: 06/06/2025 12:14 Note Text: ART THERAPY NOTE SERVICE DATE: 06/06/2025 SERVICE TIME: 10:00AM Referred By: OT Reason for Referral: Coping Skills Session Type: Initial COMMENTS: Consult received and appreciated. Pt out of room for test/procedure upon attempt. Left missed contact card on bedside table to inform pt of missed visit. Will follow up as able. SIGNATURE: Nathan Tyler Therapist PATIENT NAME: Elia Weston DATE: June 06, 2025 TIME: 12:13 PM PAGER/CONTACT #: [phone] PROGRESS Observed: 06/06/2025 6:56 AM Status: COMPLETED Source: [facility] HNO ID: [id number] Author: RIVAS SOLITARIO MD Service: General Internal Medicine Author Type: Physician Type: Progress Notes Filed: 06/06/2025 17:40 Note Text: Internal Medicine Progress Note Patient Name: Elia Weston Patient Location: [id number] Admission Date: 05/31/2025 Length of Stay: 6 Primary Service: JEFFREY Haq Staff: Rivas Solitario MD From 5pm - 7am, please [place] [phone]. INTERVAL HISTORY: -NAEON Doing well this AM. Plan for discharge following iHD today. Does not seem fluid overloaded on exam Will dose coumadin on dc OBJECTIVE MEDICATIONS: Current Facility-Administered Medications Medication Dose Route Frequency NaCl 0.9% iv flush bag 20 mL INTRAVENOUS PRN acetaminophen 650 mg tab(s) (TYLENOL) 650 mg ORAL/FEEDING TUBE q 6 H PRN aspirin 81 mg chewable tab(s) 81 mg ORAL DAILY midodrine 20 mg tab(s) (PROAMATINE) 20 mg ORAL q 8 H bisacodyl EC 10 mg tab(s) (DULCOLAX) 10 mg ORAL BID senna 17.2 mg tab(s) (SENOKOT) 17.2 mg ORAL/FEEDING TUBE BID busPIRone 5 mg tab(s) (BUSPAR) 5 mg ORAL DAILY cinacalcet 30 mg tab(s) (SENSIPAR) 30 mg ORAL DAILY sevelamer carbonate 800 mg tab(s) (RENVELA) 800 mg ORAL TID w MEALS ascorbic acid 500 mg chewable tab(s) 500 mg ORAL DAILY B Complex-Vitamin C-Folic Acid 1 tablet tab(s) (JOHNSON-VIT) 1 tablet ORAL DAILY calcitriol 1.5 mcg cap(s) (ROCALTROL) 1.5 mcg ORAL MO-WE-FR melatonin 9 mg tab(s) 9 mg ORAL AT BEDTIME pyridoxine (vitamin B6) 50 mg tab(s) (VITAMIN B6) 50 mg ORAL DAILY vitamin A 10,000 Units cap(s) (AQUASOL A) 10,000 Units ORAL DAILY cholecalciferol 5,000 Units tab(s) (VITAMIN D3) 5,000 Units ORAL/FEEDING TUBE DAILY clobetasol topical ointment 0.05% (TEMOVATE) TOPICAL BID diazePAM 2.5 mg injection (VALIUM) 2.5 mg INTRAVENOUS q 12 H PRN fentaNYL 50 mcg/mL 25 mcg injection (SUBLIMAZE) 25 mcg INTRAVENOUS DAILY PRN fentaNYL 50 mcg/mL 50 mcg injection (SUBLIMAZE) 50 mcg INTRAVENOUS DAILY PRN ondansetron (PF) 4 mg injection (ZOFRAN) 4 mg INTRAVENOUS q 6 H PRN oxyCODONE IR 15 mg tab(s) (ROXICODONE) 15 mg ORAL/FEEDING TUBE q 4 H PRN dextrose 15 gram/32 mL 15 g (TRUEPLUS) 15 g ORAL PRN Or glucagon 1 mg injection 1 mg INTRAMUSCULAR PRN Or dextrose 10% iv bolus 12.5 g INTRAVENOUS PRN midodrine 10 mg tab(s) (PROAMATINE) 10 mg ORAL PRN DIALYSIS polyethylene glycol 3350 17 g packet 17 g ORAL BID warfarin order for discharge OTHER PRN ALLERGIES: Gabapentin and Trazodone PHYSICAL EXAM: Vital Signs (last filed) Range in last 24h Temp: 36.8 ?C (98.2 ?F) (06/06/25299) Temp Min: 36.3 ?C (97.3 ?F) Max: 36.8 ?C (98.2 ?F) Pulse: 77 (06/06/25525) Pulse Min: 72 Max: 86 Resp: 16 (06/06/25299) Resp Min: 16 Max: 17 BP: 120/66 (06/06/25525) BP Min: 93/65 Max: 130/77 MAP Non Invasive (Mean Arterial Pressure): 73 (06/06/25525) MAP Non Invasive (Mean Arterial Pressure) Min: 71 Max: 88 No data recorded SpO2: 100 % (06/06/25525) SpO2 Min: 98 % Max: 100 % Pain Level: 4 (06/06/25 0118) General: obese, nontoxic-appearing CV: RRR, normal S1, S2, no S3 or S4 Resp: CTA BL, no wheezing or crackles Abd: Soft, nontender, nondistended MSK: Improvement in swelling in the left upper extremity. Tenderness in the medial left thigh. No leg edema Lines, Drains, and Airways Line Duration Dialysis / Apheresis Double Lumen 04/29/25 1005 [facility] Tunneled Right Internal Jugular 37 days Peripheral 05/31/25 0223 [facility] Short Left Forearm 20 Gauge 6 days Peripheral 06/02/25 0100 [facility] Right Forearm 20 Gauge 4 days Intake/Output 06/04/25 0700 - 06/05/25 0659 06/05/25 0700 - 06/06/25 0659 Intake (ml) 240 780 Output (ml) 3500 -- Net (ml) -3260 780 Last Weight: 126.1 kg (278 lb) (06/05/25 1822) Admit Weight: 125.6 kg (276 lb 14.4 oz) (05/31/25 0935) LABS: CBC: Recent Labs 06/05/25 1501 06/04/25 0656 06/03/25 0725 06/02/25 0053 06/01/25 0715 05/31/25 0222 WBC 3.87 3.60* 3.65* 3.76 4.67 6.64 HB 8.6* 8.2* 7.6* 7.7* 7.2* 8.2* HCT 27.9* 26.8* 24.6* 24.4* 23.3* 26.1* PLT 147* 176 193 186 172 171 MCV 97.2 95.7 95.0 93.5 94.3 93.2 RDWCV 17.2* 17.4* 17.8* 18.5* 18.1* 18.3* NEUTP -- -- -- -- 54.8 64.1 ABSNEUT -- -- -- -- 2.56 4.26 LYMPHP -- -- -- -- 19.9 14.2 MONOP -- -- -- -- 18.2 17.3 EODINP -- -- -- -- 5.6 3.5 BMP: Recent Labs 06/05/25 1501 06/04/25 0656 06/03/25 0725 06/02/25 0054 06/01/25 0715 05/31/25 022 GLUC 87 81 88 88 78 89 NA 140 142 138 138 138 142 K 4.8 4.5 4.7 4.8 5.0 4.6 CHLOR 97* 97* 96* 96* 96* 101 CO2 26 28 26 27 21* 21* ANION 17* 17* 16* 15 21* 20* BUN 23 16 33* 23 52* 45* CREAT 7.10* 5.22* 8.05* 5.85* 10.43* 8.92* CHEM: Recent Labs 06/05/25 1501 06/04/25 0656 06/03/25 0725 06/02/25 0054 06/01/25 0705/31/25221 ALB 3.8* 3.7* 3.6* 3.6* 3.4* 4.0 TPROT 7.7 7.4 7.2 7.0 6.8 7.6 CA 8.5 8.5 7.8* 7.7* 7.0* 8.2* MG -- -- -- -- -- 2.5* HEPATIC: Recent Labs 06/05/25 1501 06/04/25 0656 06/03/25 0706/02/25 0054 06/01/25 0705/31/25221 ALKPHOS 141* 146* 126* 132* 124* 147* ALT 17 17 13 10 9* 11 AST 29 30 31 21 20 29 TBILI 0.3 0.3 0.3 0.3 0.3 0.4 COAG: Recent Labs 06/05/25 1501 06/04/25 0656 06/03/25 0725 06/02/25 0054 06/02/25 0050 06/01/25 1605 06/01/25 0706/01/25 0003 05/31/25 1726 05/31/25221 APTT -- -- -- -- 41.9* 73.5* 67.0* 48.5* 48.6* -- INR 2.6* 2.8* 2.5* 2.0* -- -- 1.8* -- -- 1.7* URINALYSIS: No results for input(s): PH, SPGR, UGLUC, UBILI, UKET, UHB, UPROT, UROBIL, UWBC, SSA in the last 168 hours. Invalid input(s): NITR CARDIAC: No results for input(s): CKTEST, CKMB, CKMBP, TROPT, PBNP in the last 168 hours. MICROBIOLOGY: Reviewed. Pertinent findings under AANDP. IMAGING: Reviewed. Pertinent findings under AANDP. 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 #Left medial thigh mass Patient with recent leadless pacemaker placement via the left femoral vein, now presents with a painful left thigh mass. CT of the lower extremities was performed and is unremarkable, ruling out pseudoaneurysm, active arterial bleed, AV fistula, arterial occlusion or thrombosis. This is reassuring given his recent invasive vascular procedure and anticoagulation status. Despite these findings, important to rule out hematoma which is plausible given the trauma, anticoagulation, and femoral venous access history. Other potential causes include muscle injury or strain, seroma formation post procedurally. Additionally given his ESRD and history of chronic wounds with intermittent infection, DVT and soft tissue infection or abscess must be carefully considered. Absence of systemic signs make abscess less likely. He is anticoagulation with warfarin fluctuating INR, and recent fall increases the risk of bleeding complications such as hematoma formation. Ultrasound GROIN MIKE indicated negative for for pseudoaneurysm, deep vein thrombosis, hematoma and arteriovenous Fistula bilaterally, right side. Plan - Repeat imaging only if symptoms persist or worsen, potentially f/u US w/outpatient or inpatient if no discharge #Fall Patient experienced a fall going up the stairs, falling is likely mechanical. Less likely to be due to true syncope or seizure disorder. Patient has multiple chronic conditions that predispose him to falls including chronic hypertension that is managed with midodrine, ESRD on dialysis, anemia and overall deconditioning from prolonged hospitalization. There is currently no evidence of head trauma or neurologic deficits. PT anticipates that pt will be able to return home without any physical therapy need Plan - Evaluate orthostatic vitals, possibly following dialysis session - Tylenol 650 mg every 6 as needed and oxycodone 15 mg p.o. every 4 as needed - Fall precautions #Severe mitral stenosis s/p MVR On-X , posterior mitral annulus patch #CAD s/p CABG #pAF on warfarin on warfarin s/p cryomaze, RADHA ligation 08/21/21 #Erratic INR #Second-degree AV block, Mobitz type I s/p leadless pacemaker 05/23 - Last TTE 05/06/25 EF 60%, LV hypertrophy, normal right ventricle, trace tricuspid valve regurg, trace pulmonic valve regurg. - During prior admission, patient presented with self supratherapeutic INR and anemia requiring transfusion. Warfarin was held, and after correction with blood products and Vit K, INR became subtherapeutic. Patient was started on a heparin drip and resumed on warfarin, but INR remained labile, requiring frequent adjustments. In the days leading up to discharge, heparin was restarted under a stroke protocol with gradual INR stabilization. Patient was discharged on warfarin 5 mg with the plan of close outpatient follow up in warfarin clinic. - On recent admission, patient had multiple episodes of bradycardia with associated hypotension, EKGs showed sinus rhythm with second-degree AV block, Mobitz type I. Patient underwent leadless pacemaker with EP (05/23), no reported complications. 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 Previous imaging showed no drainable collection but extensive venous collaterals due to central. History notable for repeated TDC placements, with bilateral subclavian and brachiocephalic vein occlusions. 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 Etiology of nonhealing ulcer was attributed to ischemic vasculopathy in the setting of ESRD/hypertension/vasculopathy/malnutrition. - Previous workup revealed severe Vitamin A, B1, C, D and Iron deficiens. Previously evaluated by plastics with no recommended surgical intervention. - DVT US of the left upper extremity is unrevealing. Plan - Previously recommended the following - Vitamin D supplement 5000 units - Ascorbic acid 500mg/day - Vit B6 50 mg/day - Vitamin A 10,000 units/day - Plastic/wound care consult; chest wound dressings to be changed daily, encourage patient to continue this - Cautious fluid resuscitation iso previous history of bleeding on ESRD on HD # ESRD on HD via right TDC (MWF) # Secondary hyperparathyroidism # Anemia - Patient missed dialysis session 05/30 due to left LE pain. Patient anuric at baseline per patient. Previous PTH elevated 181, Ca 8.2 low, Na 142, K 4.6, BUN 45, Cr 8.9. Patient has anemia of chronic disease, on weekly aranesp. Patient also on calcitriol, Sensipar, Renvela. Patient has history of low blood pressure, SBP 90s, intermittently responsive to fluids, patient on midodrine 20 mg 3 times daily. -Hgb baseline 06-09. - Repeat CXR with pulmonary edema. Plan - Continue MWF HD schedule - Will give additional HD Wednesday 06/06 - Consider repeating chest x-ray prior to discharge to evaluate for resolution of pulmonary edema - Continue calcitriol MW - Continue weekly Aranesp - Next 06/01 - Continue Sensipar, Renvela with meals - Continue home midodrine - Monitor I/Os and daily weights - Fluid restriction < 1L - Avoid Lovenox, morphine, K-containing IVF, Mg- or Phos-containing enemas # Constipation -Continue Dulcolax twice daily -Continue MiraLAX as once daily -Continue senna 17.2 mg twice daily #Adjustment disorder? #Low mood Continue buspirone #Code status -full # Diet -renal # VTE PPx -warfarin 5mg # Dispo Planning - TBD Morbid Obesity Class 3 Medication Reconciliation: Completed Medication and Non-Pharmacologic VTE Prophylaxis/Anticoagulants Anticoagulant AND Antiplatelet Medications (From admission, onward) Start Dose Route Frequency Last Action Ordered Stop 05/31/25 1300 aspirin 81 mg chewable tab(s) 81 mg PO DAILY Given, 06/05 0905/31/25 1233 -- 05/31/25 1145 activity - mobilize patient (fl,ms) VTE Prophylaxis: VTE prophylaxis appropriate Harris Dennis MD Internal Medicine, PGY-1 ATTENDING PHYSICIAN: Patient seen and evaluated today [place] elements of history and physical examination of the patient were confirmed. The assessment and plan were formulated and discussed with the team on Rounds. I reviewed the resident's note, examined the patient and agree with the documented findings and plan of care. Patient feels he is still fluid overloaded. And wants to feel a little stronger before he can go for his dialysis appointment as outpatient INR 3,4 today will give warfarin 4 mg dose Patient complained of increased swelling left side of chest and axillary region on examination appears to be soft-Will continue to monitor hemoglobin and vital signs-Will get a CT chest to rule out hemorrhage and watch overnight Plan of care discussed with: Provider, RN, Patient and residents . Rivas Solitario MD [facility] [phone] CBC PNL BLD AUTO Collected: 5 6:41 AM Status: F Source: [facility] Order Comment: Specimen Type : BLOOD SPECIMEN Ordering Facility: [facility] Address: [address] [place] [address] TYPE CODE TESTS RESULT OUT OF RANGE REFERENCE UNITS LAB 6690-2(LOINC) WBC # Bld Auto 3.99 3.70-11.00 k/uL LAB 789-8(LOINC) RBC # Bld Auto 2.75 Low 4.20-6.00 m/uL LAB 718-7(LOINC) Hgb Bld-mCnc 8.1 Low 13.0-17.0 g/dL LAB 4544-3(LOINC) Hct VFr Bld Auto 26.6 Low 39.0-51.0 % LAB 787-2(LOINC) MCV RBC Auto 96.7 80.0-100.0 fL LAB 785-6(LOINC) MCH RBC Qn Auto 29.5 26.0-34.0 pg LAB 786-4(LOINC) MCHC RBC Auto-mCnc 30.5 30.5-36.0 g/dL LAB 47735-7(LOINC) RDW RBC-Rto 17.5 High 11.5-15.0 % LAB 777-3(LOINC) Platelet # Bld Auto 131 Low 150-400 k/uL LAB 05757-9(LOINC) PMV Bld Auto 12.0 9.0-12.7 fL LAB 771-6([facility]) nRBC # Bld Auto <0.01 <0.01 k/uL Performed By: #### [id number] # ### [facility] CLIA [id number] [address] [place] [address] PT PNL PPP Collected: 06/06/2025 6:41 AM Status: F Source: [facility] Order Comment: Specimen Type : BLOOD SPECIMEN Ordering Facility: [facility] Address: [address] [place] [address] TYPE CODE TESTS RESULT OUT OF RANGE REFERENCE UNITS LAB 5902-2([facility]) Prothrombin time 33.5 High 9.7-13.0 sec LAB 6301-6([facility]) INR PPP 3.4 High 0.9-1.3 Result Comment: Vitamin K An tagonist (VKA) Therapeutic Range: INR 2 to 3 (Target INR of 2.5) Note: For patients treated with VKA drugs, such as warfarin, the [place] [employer] 2012 Guideline recommends a therapeutic INR range of 2 to 3 (target INR of 2.5). This recommendation includes high-risk patients with antiphospholipid syndrome with previous arterial or venous thromboembolism, current-generation mechanical or bioprosthetic aortic heart valve replacement. Note: Patients with mechanical aortic valve replacement and additional risk factors for thromboembolic events (atrial fibrillation, previous thromboembolism, LV dysfunction, hypercoagulable conditions) or an older generation mechanical AVR (i.e., ball in-Cage) or any mechanical MVR should have a INR therapeutic range of 2.5 to 3.5 (target INR of 3). Ranjit GH, et al. Chest 2012, 141:7S-47S Kevin RA, et al. JACC 2017, 70: 252-289 Performed By: #### [id number] # ### [facility] IA [id number] [address] [place] [address] [place] COMP METAB 2000 PNL SERPL Collected: 6:41 AM Status: F Source: [facility] Order Comment: Specimen Type : BLOOD SPECIMEN Ordering Facility: [facility] Address: [address], [place] [id number] TYPE CODE TESTS RESULT OUT OF RANGE REFERENCE UNITS LAB 2885-2(LOINC) Prot SerPl-mCnc 7.2 6.3-8.0 g/dL LAB 1751-7(LOINC) Albumin SerPl-mCnc 3.7 Low 3.9-4.9 g/dL LAB 80733-2(LOINC) Calcium SerPl-mCnc 8.0 Low 8.5-10.2 mg/dL LAB 1975-2(LOINC) Bilirub SerPl-mCnc 0.3 0.2-1.3 mg/dL LAB 6768-6(LOINC) ALP SerPl-cCnc 132 High 38-113 U/L LAB 1920-8(LOINC) AST SerPl-cCnc 26 14-40 U/L LAB 1742-6(LOINC) ALT SerPl-cCnc 12 10-54 U/L LAB 2345-7(LOINC) Glucose SerPl-mCnc 84 74-99 mg/dL Result Comment: The [place] Diabetes Association (ADA) provides guidance for cutoff values for fasting glucose and random glucose. The ADA defines fasting as no caloric intake for at least 8 hours. Fasting plasma glucose results between 100 to 125 mg/dL indicate increased risk for diabetes (prediabetes). Fasting plasma glucose results greater than or equal to 126 mg/dL meet the criteria for diagnosis of diabetes. In the absence of unequivocal hyperglycemia, results should be confirmed by repeat testing. In a patient with classic symptoms of hyperglycemia or hyperglycemic crisis, random plasma glucose results greater than or equal to 200 mg/dL meet the criteria for diagnosis of diabetes. Reference: Standards of Medical Care in Diabetes 2016, [place] Diabetes Association. Diabetes Care. 2016.39(Suppl 1). LAB 3094-0(LOINC) BUN SerPl-mCnc 28 High 9-24 mg/dL LAB 2160-0(LOINC) Creat SerPl-mCnc 7.94 High 0.73-1.22 mg/dL LAB 2951-2(LOINC) Sodium SerPl-sCnc 141 136-144 mmol/L LAB 2823-3(LOINC) Potassium SerPl-sCnc 4.9 3.7-5.1 mmol/L LAB 2075-0(LOINC) Chloride SerPl-sCnc 99 98-107 mmol/L LAB 8-9(LOINC) CO2 SerPl-sCnc 26 22-30 mmol/L LAB 98157-4(LOINC) Anion Gap SerPl-sCnc 16 High 8-15 mmol/L LAB 21338-6(LOINC) eGFRcr SerPlBld CKD-EPI 2020 8 Low >=60 mL/min/1. 73m??? Result Comment: Estimated Gl omerular Filtration Rate (eGFR) is calculated using the 2020 CKD-EPI creatinine equation. This equation utilizes serum creatinine, sex, and age as parameters. The creatinine assay has traceable calibration to isotope dilution-mass spectrometry. Refer to KDIGO guidelines for clinical interpretation. In patients with unstable renal function, e.g. those with acute kidney injury, the eGFR may not accurately reflect actual GFR. Performed By: #### 16607-3 # ### [facility] CLIA [id number] [address] [place] [address] STATES OF [facility] PT PNL PPP Collected: 06/05/2025 3:01 PM Status: F Source: [facility] Order Comment: Specimen Type : BLOOD SPECIMEN Ordering Facility: [facility] Address: [address] [place] [address] TYPE CODE TESTS RESULT OUT OF RANGE REFERENCE UNITS LAB 5902-2(LOINC) Prothrombin time 26.8 High 9.7-13.0 sec LAB 6301-6(LOINC) INR PPP 2.6 High 0.9-1.3 Result Comment: Vitamin K An tagonist (VKA) Therapeutic Range: INR 2 to 3 (Target INR of 2.5) Note: For patients treated with VKA drugs, such as warfarin, the [place] [employer] 2012 Guideline recommends a therapeutic INR range of 2 to 3 (target INR of 2.5). This recommendation includes high-risk patients with antiphospholipid syndrome with previous arterial or venous thromboembolism, current-generation mechanical or bioprosthetic aortic heart valve replacement. Note: Patients with mechanical aortic valve replacement and additional risk factors for thromboembolic events (atrial fibrillation, previous thromboembolism, LV dysfunction, hypercoagulable conditions) or an older generation mechanical AVR (i.e., ball in-Cage) or any mechanical MVR should have a INR therapeutic range of 2.5 to 3.5 (target INR of 3). Alanatt GH, et al. Chest 2012, 141:7S-47S Kevin RA, et al. [facility] 2017, 70: 252-289 Performed By: #### 82249-1 # ### [facility] CLIA [id number] [address] [place] [address] [place] CBC PNL BLD AUTO Collected: 5 3:01 PM Status: F Source: [facility] Order Comment: Specimen Type : BLOOD SPECIMEN Ordering Facility: [facility] Address: [address] [place] [address] TYPE CODE TESTS RESULT OUT OF RANGE REFERENCE UNITS LAB 6690-2(LOINC) WBC # Bld Auto 3.87 3.70-11.00 k/uL LAB 789-8(LOINC) RBC # Bld Auto 2.87 Low 4.20-6.00 m/uL LAB 718-7(LOINC) Hgb Bld-mCnc 8.6 Low 13.0-17.0 g/dL LAB 4544-3(LOINC) Hct VFr Bld Auto 27.9 Low 39.0-51.0 % LAB 787-2(LOINC) MCV RBC Auto 97.2 80.0-100.0 fL LAB 785-6(LOINC) MCH RBC Qn Auto 30.0 26.0-34.0 pg LAB 786-4(LOINC) MCHC RBC Auto-mCnc 30.8 30.5-36.0 g/dL LAB 09416-0(LOINC) RDW RBC-Rto 17.2 High 11.5-15.0 % LAB 777-3(LOINC) Platelet # Bld Auto 147 Low 150-400 k/uL LAB 93792-9(LOINC) PMV Bld Auto 12.0 9.0-12.7 fL LAB 771-6(LOINC) nRBC # Bld Auto <0.01 <0.01 k/uL Performed By: #### [id number] # ### [facility] CLIA [id number] [address] [place], [place] [address] [address] [place] COMP METAB 2000 PNL SERPL Collected: 3:01 PM Status: F Source: [facility] Order Comment: Specimen Type : BLOOD SPECIMEN Ordering Facility: [facility] Address: [address] [place] [address] TYPE CODE TESTS RESULT OUT OF RANGE REFERENCE UNITS LAB 2885-2(LOINC) Prot SerPl-mCnc 7.7 6.3-8.0 g/dL LAB 1751-7(LOINC) Albumin SerPl-mCnc 3.8 Low 3.9-4.9 g/dL LAB 90732-3(LOINC) Calcium SerPl-mCnc 8.5 8.5-10.2 mg/dL LAB 1975-2(LOINC) Bilirub SerPl-mCnc 0.3 0.2-1.3 mg/dL LAB 6768-6(LOINC) ALP SerPl-cCnc 141 High 38-113 U/L LAB 1920-8(LOINC) AST SerPl-cCnc 29 14-40 U/L LAB 1742-6(LOINC) ALT SerPl-cCnc 17 10-54 U/L LAB 2345-7(LOINC) Glucose SerPl-mCnc 87 74-99 mg/dL Result Comment: The [place] Diabetes Association (ADA) provides guidance for cutoff values for fasting glucose and random glucose. The ADA defines fasting as no caloric intake for at least 8 hours. Fasting plasma glucose results between 100 to 125 mg/dL indicate increased risk for diabetes (prediabetes). Fasting plasma glucose results greater than or equal to 126 mg/dL meet the criteria for diagnosis of diabetes. In the absence of unequivocal hyperglycemia, results should be confirmed by repeat testing. In a patient with classic symptoms of hyperglycemia or hyperglycemic crisis, random plasma glucose results greater than or equal to 200 mg/dL meet the criteria for diagnosis of diabetes. Reference: Standards of Medical Care in Diabetes 2016, [place] [employer] Association. Diabetes Care. 2016.39(Suppl 1). LAB 3094-0(LOINC) BUN SerPl-mCnc 23 9-24 mg/dL LAB 2160-0(LOINC) Creat SerPl-mCnc 7.10 High 0.73-1.22 mg/dL LAB 2951-2(LOINC) Sodium SerPl-sCnc 140 136-144 mmol/L LAB 2823-3(LOINC) Potassium SerPl-sCnc 4.8 3.7-5.1 mmol/L LAB 2075-0(LOINC) Chloride SerPl-sCnc 97 Low 98-107 mmol/L LAB 2028-9(LOINC) CO2 SerPl-sCnc 26 22-30 mmol/L LAB 99797-7(LOINC) Anion Gap SerPl-sCnc 17 High 8-15 mmol/L LAB 49961-7(LOINC) eGFRcr SerPlBld CKD-EPI 2020 9 Low >=60 mL/min/1. 73m??? Result Comment: Estimated Gl omerular Filtration Rate (eGFR) is calculated using the 2020 CKD-EPI creatinine equation. This equation utilizes serum creatinine, sex, and age as parameters. The creatinine assay has traceable calibration to isotope dilution-mass spectrometry. Refer to KDIGO guidelines for clinical interpretation. In patients with unstable renal function, e.g. those with acute kidney injury, the eGFR may not accurately reflect actual GFR. Performed By: #### [id number] # ### [facility] CLIA [id number] [address] [place] [address] STATES OF [facility] ALLIED HEALTH Observed: 06/05/2025 2:08 PM Status: COMPLETED Source: [facility] HNO ID: [id number] Author: NOAH CORRIGAN Chaplain Service: Spiritual Care Author Type: Radio News Anchor Type: Allied Health Filed: 06/05/2025 14:10 Note Text: SPIRITUALCARE Spiritual Care Visit- Brief Note Name: Elia Weston Date: June 05, 2025 Notes: Spiritual Care follow up for Communion. Pt is Alevism. Visited with pt and offered Communion as requested. Pt was appreciative of support. Spiritual Care remains available to follow up as needed/requested. SIGNATURE: Chaplain Stella PATIENT NAME: Elia Weston DATE: June 05, 2025 TIME: 2:08 PM This is an electronically created document. IF PRINTED, PLEASE DO NOT REMOVE FROM THE CHART OR MODIFY PRINTED COPY. PROGRESS Observed: 06/05/2025 7:27 AM Status: COMPLETED Source: [facility] HNO ID: [id number] Author: RIVAS SOLITARIO MD Service: General Internal Medicine Author Type: Physician Type: Progress Notes Filed: 06/05/2025 17:23 Note Text: Internal Medicine Progress Note Patient Name: Elia Weston Patient Location: H081 [id number]/[id number] Admission Date: 05/31/2025 Length of Stay: 5 Primary Service: JEFFREY Haq Staff: Rivas Solitario MD From 5pm - 7am, [place] [phone]. INTERVAL HISTORY: -NAEON Doing well this AM. Plan for discharge following iHD tomorrow. BRIEF PLAN: -Warfarin 5 mg today 06/04 - PT/INR today 06/05 OBJECTIVE MEDICATIONS: Current Facility-Administered Medications Medication Dose Route Frequency NaCl 0.9% iv flush bag 20 mL INTRAVENOUS PRN acetaminophen 650 mg tab(s) (TYLENOL) 650 mg ORAL/FEEDING TUBE q 6 H PRN aspirin 81 mg chewable tab(s) 81 mg ORAL DAILY midodrine 20 mg tab(s) (PROAMATINE) 20 mg ORAL q 8 H bisacodyl EC 10 mg tab(s) (DULCOLAX) 10 mg ORAL BID senna 17.2 mg tab(s) (SENOKOT) 17.2 mg ORAL/FEEDING TUBE BID busPIRone 5 mg tab(s) (BUSPAR) 5 mg ORAL DAILY cinacalcet 30 mg tab(s) (SENSIPAR) 30 mg ORAL DAILY sevelamer carbonate 800 mg tab(s) (RENVELA) 800 mg ORAL TID w MEALS ascorbic acid 500 mg chewable tab(s) 500 mg ORAL DAILY B Complex-Vitamin C-Folic Acid 1 tablet tab(s) (JOHNSON-VIT) 1 tablet ORAL DAILY calcitriol 1.5 mcg cap(s) (ROCALTROL) 1.5 mcg ORAL MO-WE- melatonin 9 mg tab(s) 9 mg ORAL AT BEDTIME pyridoxine (vitamin B6) 50 mg tab(s) (VITAMIN B6) 50 mg ORAL DAILY vitamin A 10,000 Units cap(s) (AQUASOL A) 10,000 Units ORAL DAILY cholecalciferol 5,000 Units tab(s) (VITAMIN D3) 5,000 Units ORAL/FEEDING TUBE DAILY clobetasol topical ointment 0.05% (TEMOVATE) TOPICAL BID diazePAM 2.5 mg injection (VALIUM) 2.5 mg INTRAVENOUS q 12 H PRN fentaNYL 50 mcg/mL 25 mcg injection (SUBLIMAZE) 25 mcg INTRAVENOUS DAILY PRN fentaNYL 50 mcg/mL 50 mcg injection (SUBLIMAZE) 50 mcg INTRAVENOUS DAILY PRN ondansetron (PF) 4 mg injection (ZOFRAN) 4 mg INTRAVENOUS q 6 H PRN oxyCODONE IR 15 mg tab(s) (ROXICODONE) 15 mg ORAL/FEEDING TUBE q 4 H PRN dextrose 15 gram/32 mL 15 g (TRUEPLUS) 15 g ORAL PRN Or glucagon 1 mg injection 1 mg INTRAMUSCULAR PRN Or dextrose 10% iv bolus 12.5 g INTRAVENOUS PRN midodrine 10 mg tab(s) (PROAMATINE) 10 mg ORAL PRN DIALYSIS polyethylene glycol 3350 17 g packet 17 g ORAL BID ALLERGIES: Gabapentin and Trazodone PHYSICAL EXAM: Vital Signs (last filed) Range in last 24h Temp: 36.8 ?C (98.2 ?F) (06/05/25 0336) Temp Min: 36.2 ?C (97.2 ?F) Max: 36.8 ?C (98.2 ?F) Pulse: 73 (06/05/25 08) Pulse Min: 71 Max: 94 Resp: 18 (06/05/25 0453) Resp Min: 16 Max: 18 BP: 130/77 (06/05/25 0857) BP Min: 92/44 Max: 130/77 MAP Non Invasive (Mean Arterial Pressure): 88 (06/05/25 08) MAP Non Invasive (Mean Arterial Pressure) Min: 57 Max: 92 No data recorded SpO2: 100 % (06/05/25856) SpO2 Min: 98 % Max: 100 % Pain Level: 0 (06/05/25 1103) General: obese, nontoxic-appearing CV: RRR, normal S1, S2, no S3 or S4 Resp: CTA BL, no wheezing or crackles Abd: Soft, nontender, nondistended MSK: Improvement in swelling in the left upper extremity. Tenderness in the medial left thigh Lines, Drains, and Airways Line Duration Dialysis / Apheresis Double Lumen 04/29/25 1005 [facility] Tunneled Right Internal Jugular 37 days Peripheral 05/31/25 0223 [facility] Short Left Forearm 20 Gauge 5 days Peripheral 06/02/25 0100 [facility] Right Forearm 20 Gauge 3 days Intake/Output 06/01/25 0700 - 06/02/25 0659 06/02/25 0700 - 06/03/25 0659 06/03/25 0700 - 06/04/25 0659 06/04/25 0700 - 06/05/25 0659 06/05/25 0700 - 06/06/25 0659 Intake (ml) 240 -- -- 240 240 Output (ml) 2000 -- -- 3500 -- Net (ml) -1760 -- -- -3260 240 Last Weight: 126.1 kg (278 lb) (06/02/25 0821) Admit Weight: 125.6 kg (276 lb 14.4 oz) (05/31/2535) LABS: CBC: Recent Labs 06/04/25 0656 06/03/25 0725 06/02/255206/01/2571405/31/25 0222 WBC 3.60* 3.65* 3.76 4.67 6.64 HB 8.2* 7.6* 7.7* 7.2* 8.2* HCT 26.8* 24.6* 24.4* 23.3* 26.1* PLT 176 193 186 172 171 MCV 95.7 95.0 93.5 94.3 93.2 RDWCV 17.4* 17.8* 18.5* 18.1* 18.3* NEUTP -- -- -- 54.8 64.1 ABSNEUT -- -- -- 2.56 4.26 LYMPHP -- -- -- 19.9 14.2 MONOP -- -- -- 18.2 17.3 EODINP -- -- -- 5.6 3.5 BMP: Recent Labs 06/04/2556 06/03/2525 06/02/255306/01/2571402/25 0222 GLUC 81 88 88 78 89 NA 142 138 138 138 142 K 4.5 4.7 4.8 5.0 4.6 CHLOR 97* 96* 96* 96* 101 CO2 28 26 27 21* 21* ANION 17* 16* 15 21* 20* BUN 16 33* 23 52* 45* CREAT 5.22* 8.05* 5.85* 10.43* 8.92* CHEM: Recent Labs 06/04/25 0656 06/03/25 0706/02/25 0054 06/01/25 0715 05/31/25 022 ALB 3.7* 3.6* 3.6* 3.4* 4.0 TPROT 7.4 7.2 7.0 6.8 7.6 CA 8.5 7.8* 7.7* 7.0* 8.2* MG -- -- -- -- 2.5* HEPATIC: Recent Labs 06/04/2565506/03/2572406/02/255306/01/25 0705/31/25221 ALKPHOS 146* 126* 132* 124* 147* ALT 17 13 10 9* 11 AST 30 31 21 20 29 TBILI 0.3 0.3 0.3 0.3 0.4 COAG: Recent Labs 06/04/2565506/03/25 0706/02/25 00506/02/25 0050 06/01/25 1605 06/01/25 0706/01/25 0003 05/31/25 1726 05/31/25221 APTT -- -- -- 41.9* 73.5* 67.0* 48.5* 48.6* -- INR 2.8* 2.5* 2.0* -- -- 1.8* -- -- 1.7* URINALYSIS: No results for input(s): PH, SPGR, UGLUC, UBILI, UKET, UHB, UPROT, UROBIL, UWBC, SSA in the last 168 hours. Invalid input(s): NITR CARDIAC: No results for input(s): CKTEST, CKMB, CKMBP, TROPT, PBNP in the last 168 hours. MICROBIOLOGY: Reviewed. Pertinent findings under AANDP. IMAGING: Reviewed. Pertinent findings under AANDP. 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 #Left medial thigh mass Patient with recent leadless pacemaker placement via the left femoral vein, now presents with a painful left thigh mass. CT of the lower extremities was performed and is unremarkable, ruling out pseudoaneurysm, active arterial bleed, AV fistula, arterial occlusion or thrombosis. This is reassuring given his recent invasive vascular procedure and anticoagulation status. Despite these findings, important to rule out hematoma which is plausible given the trauma, anticoagulation, and femoral venous access history. Other potential causes include muscle injury or strain, seroma formation post procedurally. Additionally given his ESRD and history of chronic wounds with intermittent infection, DVT and soft tissue infection or abscess must be carefully considered. Absence of systemic signs make abscess less likely. He is anticoagulation with warfarin fluctuating INR, and recent fall increases the risk of bleeding complications such as hematoma formation. Ultrasound GROIN MIKE indicated negative for for pseudoaneurysm, deep vein thrombosis, hematoma and arteriovenous Fistula bilaterally, right side. Plan - Repeat imaging only if symptoms persist or worsen, potentially f/u US w/outpatient or inpatient if no discharge #Fall Patient experienced a fall going up the stairs, falling is likely mechanical. Less likely to be due to true syncope or seizure disorder. Patient has multiple chronic conditions that predispose him to falls including chronic hypertension that is managed with midodrine, ESRD on dialysis, anemia and overall deconditioning from prolonged hospitalization. There is currently no evidence of head trauma or neurologic deficits. PT anticipates that pt will be able to return home without any physical therapy need Plan - Evaluate orthostatic vitals, possibly following dialysis session - Tylenol 650 mg every 6 as needed and oxycodone 15 mg p.o. every 4 as needed - Fall precautions #Severe mitral stenosis s/p MVR On-X , posterior mitral annulus patch #CAD s/p CABG #pAF on warfarin on warfarin s/p cryomaze, RADHA ligation 08/21/21 #Erratic INR #Second-degree AV block, Mobitz type I s/p leadless pacemaker 05/23 - Last TTE 05/06/25 EF 60%, LV hypertrophy, normal right ventricle, trace tricuspid valve regurg, trace pulmonic valve regurg. - During prior admission, patient presented with self supratherapeutic INR and anemia requiring transfusion. Warfarin was held, and after correction with blood products and Vit K, INR became subtherapeutic. Patient was started on a heparin drip and resumed on warfarin, but INR remained labile, requiring frequent adjustments. In the days leading up to discharge, heparin was restarted under a stroke protocol with gradual INR stabilization. Patient was discharged on warfarin 5 mg with the plan of close outpatient follow up in warfarin clinic. - On recent admission, patient had multiple episodes of bradycardia with associated hypotension, EKGs showed sinus rhythm with second-degree AV block, Mobitz type I. Patient underwent leadless pacemaker with EP (05/23), no reported complications. 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 Previous imaging showed no drainable collection but extensive venous collaterals due to central. History notable for repeated TDC placements, with bilateral subclavian and brachiocephalic vein occlusions. 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 Etiology of nonhealing ulcer was attributed to ischemic vasculopathy in the setting of ESRD/hypertension/vasculopathy/malnutrition. - Previous workup revealed severe Vitamin A, B1, C, D and Iron deficiens. Previously evaluated by plastics with no recommended surgical intervention. - DVT US of the left upper extremity is unrevealing. Plan - Previously recommended the following - Vitamin D supplement 5000 units - Ascorbic acid 500mg/day - Vit B6 50 mg/day - Vitamin A 10,000 units/day - Plastic/wound care consult; chest wound dressings to be changed daily, encourage patient to continue this - Cautious fluid resuscitation iso previous history of bleeding on ESRD on HD # ESRD on HD via right TDC (MWF) # Secondary hyperparathyroidism # Anemia - Patient missed dialysis session 05/30 due to left LE pain. Patient anuric at baseline per patient. Previous PTH elevated 181, Ca 8.2 low, Na 142, K 4.6, BUN 45, Cr 8.9. Patient has anemia of chronic disease, on weekly aranesp. Patient also on calcitriol, Sensipar, Renvela. Patient has history of low blood pressure, SBP 90s, intermittently responsive to fluids, patient on midodrine 20 mg 3 times daily. -Hgb baseline 06-09. - Repeat CXR with pulmonary edema. Plan - Continue MWF HD schedule - Will give additional HD Wednesday 06/06 - Consider repeating chest x-ray prior to discharge to evaluate for resolution of pulmonary edema - Continue calcitriol MWF - Continue weekly Aranesp - Next 06/01 - Continue Sensipar, Renvela with meals - Continue home midodrine - Monitor I/Os and daily weights - Fluid restriction < 1L - Avoid Lovenox, morphine, K-containing IVF, Mg- or Phos-containing enemas # Constipation -Continue Dulcolax twice daily -Continue MiraLAX as once daily -Continue senna 17.2 mg twice daily #Adjustment disorder? #Low mood Continue buspirone #Code status -full # Diet -renal # VTE PPx -warfarin 5mg # Dispo Planning - TBD Morbid Obesity Class 3 Medication Reconciliation: Completed Medication and Non-Pharmacologic VTE Prophylaxis/Anticoagulants Anticoagulant AND Antiplatelet Medications (From admission, onward) Start Dose Route Frequency Last Action Ordered Stop 05/31/25 1300 aspirin 81 mg chewable tab(s) 81 mg PO DAILY Given, 06/05 0900 05/31/25 1233 -- 05/31/25 1145 activity - mobilize patient (nj,oh) VTE Prophylaxis: VTE prophylaxis appropriate Pool Kaur MD Internal Medicine, PGY-2 ATTENDING PHYSICIAN: Patient seen and evaluated today [place] elements of history and physical examination of the patient were confirmed. The assessment and plan were formulated and discussed with the team on Rounds. I reviewed the resident's note, examined the patient and agree with the documented findings and plan of care. Patient feels he is still fluid overloaded. And wants to feel a little stronger before he can go for his dialysis appointment as outpatient INR 2.6 today will continue warfarin 5 mg dose Likely discharge after dialysis on June 06 Plan of care discussed with: Provider, RN, Patient and residents . Rivas Solitario MD Mobile- [phone] ALLIED HEALTH Observed: 06/04/2025 7:48 PM Status: COMPLETED Source: [facility] HNO ID: [id number] Author: CARLOS VILLANUEVA Chaplain Service: Spiritual Care Author Type: Type: Allied Health Filed: 06/04/2025 19:54 Note Text: SPIRITUAL CARE ASSESSMENT SERVICE DATE: 06/04/2025 SERVICE TIME: 1929 Visit with: Patient Length of visit (minutes): 15 Pentecostalism / Spirituality: Alevism Reason: Referral from: Physician Purpose of Referral (if stated): Emotional support ASSESSMENT Emotional Disposition: Sadness Relational Concerns: None Spiritual Concerns: Struggling with meaning of illness or diagnosis INTERVENTIONS Empowerment: Normalized experience of patient/family Exploration: Explored emotional needs and resources and Explored spiritual needs and resources Relationship Building: Provided silent and supportive presence Ritual: None / Not Applicable OUTCOMES Patient debriefed/defused their experience and Patient expressed gratitude PLAN Will make referral to private watchman COMMENTS: Radio News Anchor introduced self and role to patient Elia Weston. Patient shared that he was discharged on Friday from a month and a half long admission and re-admitted on Friday. Patient expressed frustration with one thing after another happening and wanting to feel normal. 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 Usually music helps him cope but he has experienced especially bad days recently to the point that he does not want to listen to music at all. 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 Radio News Anchor asked if he would like to receive communion tomorrow, and he said that he would. He requested to receive it in the chapel if he is permitted to and otherwise expressed understanding if he needs to receive it in his room. Patient was appreciative of care and did not have any further needs at this time. SIGNATURE: Chaplain Yahir PATIENT NAME: Elia Weston DATE: June 04, 2025 TIME: 7:48 PM PAGER/CONTACT #: [phone] THERAPY NT Observed: 06/04/2025 3:26 PM Status: COMPLETED Source: [facility] HNO ID: [id number] Author: LUIGI EVANS OT/L Service: Occupational Therapy Author Type: Occupational Therapist Type: Therapy (PT/OT/Speech/Resp) Filed: 06/04/2025 15:28 Note Text: Occupational Therapy Evaluation Summary SERVICE DATE: 06/04/2025 SERVICE TIME: 1353 to 1455 ROOM: [place] [address] OT 6 Clicks Score: 18 DISCHARGE RECOMMENDATIONS Home Recommended Discharge Disposition Comments: with family support PRN Anticipated Discharge Needs: Physical Assist at Home Physical Assist at Home for: Cleaning, Laundry, Shopping, Transportation, Stairs ASSESSMENT Response to Therapy Interventions: Good Participation in Activities, Coping Deficits RN approved OT session. AANDO x4, 4AT = negative. Pt educated on pacemaker precautions with ADLs/IADLs - pt verbalized understanding. Pt completed bed mobility with min A for WATER CONSERVATION SPECIALIST. Pt completed STS and functional mobility with SBA using WW and CGA without. Pt completed ADLs with set up seated at sink. Extensive time required d/t coping - pt tearful and expressed frustrations with medical course and social situation, OT responded with H.E.A.R.T and therapeutic use of self. Pt educated on relaxation and breathing using visual hand techniques for deep breathing. Music, art, and spiritual therapy consulted. Pt returned to recliner and required max A to don socks. Pt educated on energy conservation, fall prevention, and home safety - provided handout. Rec home with family assist for ADLs/IADLs PRN. Will defer further mobility to PT and nursing.OT to signoff. PRECAUTIONS Fall Risk, Lines/Tubes/Drains, Pacemaker CURRENT HOSPITAL COURSE 45 year old male admitted for left groin mass Relevant Past Medical History: ESRD on HD, HTN, Afib s/p MV replacement (on coumadin), secondary hyperparathyroidism, vasculopathy with hx of SVC syndrome and brachiocephalic chronic occlusive disease, HLD, obesity, [facility] Patient Lives With: Family, Spouse Assistance Available: Part-Time Entry To Home: Stairs Number Of Stairs Into Home: 3 (3+1) Number Of Stairs To Bed/Bath: 0 Tub/Shower Type: Tub shower, has been spongebathing Laundry: Shares task, on 1st level, Pt folds Equipment Owned: Cane, Walker- Wheeled, Hand Held Shower PRIOR FUNCTIONAL LEVEL Within Functional Limits, Required Assistance, History of Falls Assistance Required With: Laundry, Cleaning, Meals, Shopping, Self Care Pt reports one recent fall. Is otherwise independent with mobility, IND with ADLs (needs assist for socks). Lives with and children Baseline Cognition: Oriented to self, Oriented to place, Oriented to time, Oriented to situation SUBJECTIVE This has been tough Pt agreeable to OT COGNITION Responsiveness: Alert, Awake Follows Commands: 3-step Commands Attention Deficits: Distractible, Redirected with Cues Cog 6 Start of Session Total Points (Max Score = 24): 24 (06/04/25) Cog 6 End of Session Total Points (Max Score = 24): 24 (06/04/25) 4AT Score: 0 (06/04/25) Delirium Positive/Negative: Negative (06/04/25) THERAPY DIAGNOSIS Reduced mobility-other, Decreased activities of daily living (ADL) TREATMENT INTERVENTIONS Evaluation, Self Detention Management (18258), Cognitive Training per First 15 Minutes (39357) Timed Code Treatment (minutes): 47 Skilled Treatment Time (minutes): 62 TRAINING AND EDUCATION PROVIDED Activity Adaptation/Compensatory Strategies, Bed Mobility, Benefits of In-Hospital Mobility, Discharge Planning, Functional Mobility Involving ADLs, IADLs/Home Management, Identification of Systems of Support, Life Roles/Routines/Habits, Role of Occupational Therapy, Safety/Judgment, Sitting Balance to Improve [place] with ADLs/Self-Care, Standing Balance to Improve [place] with ADLs/Self-Care, Transfer - Sit to Stand, Treatment Protocol, Command Following, Energy Conservation, Grooming Tasks, Health Management of Chronic Conditions, Meaningful Hobby/Leisure Participation, Positioning, Altering Thinking Patterns, Home Set-up/Modifications, Insight into Deficits, Adaptive Equipment/DME, Coping Skills/Resiliency, Attention Diversion Techniques, Body Image/Self-Esteem, Emotional Regulation, Expected Functional Level, Lower Extremity Dressing, Self-Efficacy, Self-Expression/Advocacy, Transfer - Bed to Chair, Upper Extremity Dressing, Upper Extremity Bathing, Precautions/Restrictions THERAPEUTIC SKILLS USED Activity Dosing, Movement Facilitation, Therapeutic Use of Self, Cuing Verbal, Assessment of Tolerance Including Vitals Response to Activity, Repetitive Task Learning, Bilateral UE Integration, Cuing Visual, Physical Assist, Task Analysis Learning, Teach-Back for Education FUNCTIONAL STATUS Activities of Daily Living Assist Level Additional Information Feeding Set Up Grooming Set Up Bathing Upper Body Stand By Assistance Bathing Lower Body Moderate Assistance Dressing Upper Body Contact Guard Assistance Dressing Lower Body Moderate Assistance Toileting Contact Guard Assistance Mobility Assist Level Additional Information Bed Mobility Supine To Sit: Minimal Assistance Sit To Supine: Additional Information N/T - OOB in chair Sit to Stand Stand By Assistance Stand to Sit Stand By Assistance Bed to Chair Stand By Assistance Bed To Chair Transfer Type: Stepping Toilet/Commode Shower Functional Mobility Stand By Assistance, Contact Guard Assistance, Additional Information Functional Mobility Device: Wheeled Walker, None SBA with WW, CGA without AD GOALS Patient will demonstrate progress with self-care, cognitive and/or coping needs identified to allow safe discharge to home with available support and/or physical assistance. Rehab Potential: Good Good Rehab Potential Due To: Current objective clinical presentation Progress Toward Goals: Progressing as expected ACUTE CARE TREATMENT PLAN OT Frequency: Discontinue Therapy Services Reasons Therapy Services Discontinued: Goals met Treatment Interventions: Education, Self Care/Home Management, Energy Conservation Training, Functional Mobility Training, Balance Training Plan for Next Visit: Dressing Training, Bathing Training SIGNATURE: JASWINDER Ortiz PATIENT NAME: Elia Weston DATE: June 04, 2025 TIME: 3:26 PM THERAPY NT Observed: 06/04/2025 11:35 AM Status: COMPLETED Source: [facility] HNO ID: [id number] Author: LUIGI EVANS OT/L Service: Occupational Therapy Author Type: Occupational Therapist Type: Therapy (PT/OT/Speech/Resp) Filed: 06/04/2025 12:04 Note Text: OCCUPATIONAL THERAPY MISSED VISIT SERVICE DATE: 06/04/2025 SERVICE TIME: 1135 ROOM: [place] [address] (6 - DIALYSIS) Patient not seen due to Test / Procedure. (Will f/u as appropriate). SIGNATURE: JASWINDER Ortiz PATIENT NAME: Elia Weston DATE: June 04, 2025 TIME: 11:35 AM CONSULT PROG Observed: 06/04/2025 11:29 AM Status: COMPLETED Source: [facility] HNO ID: [id number] Author: PAU GLYNN APRN.CNP Service: Nephrology Author Type: Nurse Practitioner Type: Consult Progress Note Filed: 06/04/2025 12:46 Note Text: CONSULT PROGRESS NOTE NEPHROLOGY Q6 SERVICE SERVICE DATE: 06/04/2025 SERVICE TIME: 12:40 PM SUBJECTIVE INTERVAL HISTORY: - Patient seen on dialysis, single evaluation. Orders confirmed and documented per LEONEL. --tolerating IUF session MEDICATIONS: Current Facility-Administered Medications Medication Dose Route Frequency NaCl 0.9% iv flush bag 20 mL INTRAVENOUS PRN acetaminophen 650 mg tab(s) (TYLENOL) 650 mg ORAL/FEEDING TUBE q 6 H PRN aspirin 81 mg chewable tab(s) 81 mg ORAL DAILY midodrine 20 mg tab(s) (PROAMATINE) 20 mg ORAL q 8 H bisacodyl EC 10 mg tab(s) (DULCOLAX) 10 mg ORAL BID senna 17.2 mg tab(s) (SENOKOT) 17.2 mg ORAL/FEEDING TUBE BID busPIRone 5 mg tab(s) (BUSPAR) 5 mg ORAL DAILY cinacalcet 30 mg tab(s) (SENSIPAR) 30 mg ORAL DAILY sevelamer carbonate 800 mg tab(s) (RENVELA) 800 mg ORAL TID w MEALS ascorbic acid 500 mg chewable tab(s) 500 mg ORAL DAILY B Complex-Vitamin C-Folic Acid 1 tablet tab(s) (JOHNSON-VIT) 1 tablet ORAL DAILY calcitriol 1.5 mcg cap(s) (ROCALTROL) 1.5 mcg ORAL MO-WE- melatonin 9 mg tab(s) 9 mg ORAL AT BEDTIME pyridoxine (vitamin B6) 50 mg tab(s) (VITAMIN B6) 50 mg ORAL DAILY vitamin A 10,000 Units cap(s) (AQUASOL A) 10,000 Units ORAL DAILY cholecalciferol 5,000 Units tab(s) (VITAMIN D3) 5,000 Units ORAL/FEEDING TUBE DAILY clobetasol topical ointment 0.05% (TEMOVATE) TOPICAL BID diazePAM 2.5 mg injection (VALIUM) 2.5 mg INTRAVENOUS q 12 H PRN fentaNYL 50 mcg/mL 25 mcg injection (SUBLIMAZE) 25 mcg INTRAVENOUS DAILY PRN fentaNYL 50 mcg/mL 50 mcg injection (SUBLIMAZE) 50 mcg INTRAVENOUS DAILY PRN ondansetron (PF) 4 mg injection (ZOFRAN) 4 mg INTRAVENOUS q 6 H PRN oxyCODONE IR 15 mg tab(s) (ROXICODONE) 15 mg ORAL/FEEDING TUBE q 4 H PRN dextrose 15 gram/32 mL 15 g (TRUEPLUS) 15 g ORAL PRN Or glucagon 1 mg injection 1 mg INTRAMUSCULAR PRN Or dextrose 10% iv bolus 12.5 g INTRAVENOUS PRN midodrine 10 mg tab(s) (PROAMATINE) 10 mg ORAL PRN DIALYSIS polyethylene glycol 3350 17 g packet 17 g ORAL BID OBJECTIVE PHYSICAL EXAM: BP 121/72 Pulse 74 Temp 37.1 ?C (98.8 ?F) (Oral) Resp 16 Ht 175.3 cm (5' 9) Wt 126.1 kg (278 lb) SpO2 95% BMI 41.05 kg/m? Intake/Output Summary (Last 24 hours) at 06/04/2025 1240 Last data filed at 06/04/2025 1119 Gross per 24 hour Intake -- Output 3500 ml Net -3500 ml GENERAL: Awake, alert, in no acute distress SKIN: Warm and dry HEENT: Normocephalic, Atraumatic LUNGS: Normal respiratory effort. CARDIAC: RRR ABDOMEN: Soft, non-tender, non-distended. EXTREMITIES: BLE edema NEURO: AOx3, normal speech, muscle strength grossly intact Vascular Access: Hemodialysis catheter location: Right Tunneled internal jugular. Exit site demonstrates: normal findings DATA: Diagnostic tests reviewed for today's visit: Recent Labs 06/04/25 0656 06/03/25 0725 06/02/25 0054 06/01/25 0715 05/31/25 0222 NA 142 138 138 138 142 K 4.5 4.7 4.8 5.0 4.6 CHLOR 97* 96* 96* 96* 101 CO2 28 26 27 21* 21* BUN 16 33* 23 52* 45* CREAT 5.22* 8.05* 5.85* 10.43* 8.92* GLUC 81 88 88 78 89 ANION 17* 16* 15 21* 20* CA 8.5 7.8* 7.7* 7.0* 8.2* MG -- -- -- -- 2.5* Recent Labs 06/04/25 0656 06/03/25 0725 06/02/25 0053 WBC 3.60* 3.65* 3.76 HB 8.2* 7.6* 7.7* HCT 26.8* 24.6* 24.4* PLT 176 193 186 ASSESSMENT: Mr. 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 Patient underwent pacemaker placement during his most recent hospitalization he is back for concern for groin wound. Nephrology consulted for ESR management. 1.ESRD -Etiology: HTN Renal Biopsy 2005 for renal failure of undetermined etiology. 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 using an angioplasty balloon per IR 2.Electrolytes/acid-base: -Potassium stable -Sodium stable 3.Hypertension/Volume Status: 06/02 CXR shows edema -BP 90-110's. -EDW 114 kg, pre-weight today 123 kg with UF goal 3 L as tolerated 4.Anemia of CKD: -below goal, on weekly aranesp, resume if LOS>7 days or Hgb<8 5.Secondary renal hyperparathyroidism: Calcitriol 1.5mcg TIW, Sensipar 30mg daily, Revela 800mg TID with meals -PTH 578--> 181 PLAN: -IUF today with UF goal 3 L -Next dialysis planned for Friday Standard ESRD recommendations and precautions: - Strict IANDOs and Daily weight - Consider a RENAL Diet for HD patients - Fluid restriction < 1 L - Start Nephrocap or other renal multivitamin to replace water-soluble vitamins lost during dialysis - Avoid Lovenox, Demerol, Morphine, K-containing IVF, Mg- or Phos- containing enemas - Dose meds GFR 10 ml/min Outpatient dialysis disposition plan: contact [phone] and ask to speak with the director of front office as needed for assistance with post-discharge arrangements. Please DO NOT schedule patient for a nephrology follow up appointment. Kidney care will be provided by the primary data warehousing engineer at their dialysis unit upon hospital discharge. SIGNATURE: Pau Glynn APRN.CNP PATIENT NAME: Elia Weston DATE: June 04, 2025 TIME: 12:40 PM PAGER: [phone] FOR AFTER HOUR CONCERNS BETWEEN 5PM - 7AM CONTACT ON-CALL NEPHROLOGY FELLOW [phone] Disclosures: Parts of the current progress note may have been copied from a previous note. PROGRESS Observed: 06/04/2025 6:58 AM Status: COMPLETED Source: [facility] ID: [id number] Author: RIVAS SOLITARIO MD Service: General Internal Medicine Author Type: Physician Type: Progress Notes Filed: 06/04/2025 17:59 Note Text: Internal Medicine Progress Note Patient Name: Elia Weston Patient Location: [place] [address] Admission Date: 05/31/2025 Length of Stay: 4 Primary Service: JEFFREY Haq Staff: Rivas Solitario MD From 5pm - 7am, [place] [phone]. INTERVAL HISTORY: -NAEON, afebrile, HDS -This morning patient endorsing improvement of left upper extremity swelling. Denied bleeding from the wounds. Denies shortness of breath, chest pain, N/V/D, fevers, chills, cough. Tolerating oral intake. -PT/INR 2.8, today 06/04. Warfarin 5 mg 06/03. Hgb 8.2, WBC 3.6, platelets 176. -HD today 3.5 L UF BRIEF PLAN: -Warfarin 5 mg today 06/04 - PT/INR tomorrow 06/05 OBJECTIVE MEDICATIONS: Current Facility-Administered Medications Medication Dose Route Frequency NaCl 0.9% iv flush bag 20 mL INTRAVENOUS PRN acetaminophen 650 mg tab(s) (TYLENOL) 650 mg ORAL/FEEDING TUBE q 6 H PRN aspirin 81 mg chewable tab(s) 81 mg ORAL DAILY midodrine 20 mg tab(s) (PROAMATINE) 20 mg ORAL q 8 H bisacodyl EC 10 mg tab(s) (DULCOLAX) 10 mg ORAL BID senna 17.2 mg tab(s) (SENOKOT) 17.2 mg ORAL/FEEDING TUBE BID busPIRone 5 mg tab(s) (BUSPAR) 5 mg ORAL DAILY cinacalcet 30 mg tab(s) (SENSIPAR) 30 mg ORAL DAILY sevelamer carbonate 800 mg tab(s) (RENVELA) 800 mg ORAL TID w MEALS ascorbic acid 500 mg chewable tab(s) 500 mg ORAL DAILY B Complex-Vitamin C-Folic Acid 1 tablet tab(s) (JOHNSON-VIT) 1 tablet ORAL DAILY calcitriol 1.5 mcg cap(s) (ROCALTROL) 1.5 mcg ORAL MO-WE- melatonin 9 mg tab(s) 9 mg ORAL AT BEDTIME pyridoxine (vitamin B6) 50 mg tab(s) (VITAMIN B6) 50 mg ORAL DAILY vitamin A 10,000 Units cap(s) (AQUASOL A) 10,000 Units ORAL DAILY cholecalciferol 5,000 Units tab(s) (VITAMIN D3) 5,000 Units ORAL/FEEDING TUBE DAILY clobetasol topical ointment 0.05% (TEMOVATE) TOPICAL BID diazePAM 2.5 mg injection (VALIUM) 2.5 mg INTRAVENOUS q 12 H PRN fentaNYL 50 mcg/mL 25 mcg injection (SUBLIMAZE) 25 mcg INTRAVENOUS DAILY PRN fentaNYL 50 mcg/mL 50 mcg injection (SUBLIMAZE) 50 mcg INTRAVENOUS DAILY PRN ondansetron (PF) 4 mg injection (ZOFRAN) 4 mg INTRAVENOUS q 6 H PRN oxyCODONE IR 15 mg tab(s) (ROXICODONE) 15 mg ORAL/FEEDING TUBE q 4 H PRN dextrose 15 gram/32 mL 15 g (TRUEPLUS) 15 g ORAL PRN Or glucagon 1 mg injection 1 mg INTRAMUSCULAR PRN Or dextrose 10% iv bolus 12.5 g INTRAVENOUS PRN midodrine 10 mg tab(s) (PROAMATINE) 10 mg ORAL PRN DIALYSIS polyethylene glycol 3350 17 g packet 17 g ORAL BID warfarin 5 mg tab(s) (COUMADIN) 5 mg ORAL/FEEDING TUBE ONCE - WARFARIN ALLERGIES: Gabapentin and Trazodone PHYSICAL EXAM: Vital Signs (last filed) Range in last 24h Temp: 37.1 ?C (98.8 ?F) (06/04/25 0344) Temp Min: 36.7 ?C (98.1 ?F) Max: 37.1 ?C (98.8 ?F) Pulse: 74 (06/04/25 0614) Pulse Min: 74 Max: 96 Resp: 16 (06/04/25 0403) Resp Min: 16 Max: 18 BP: 111/68 (06/04/25 1250) BP Min: 106/74 Max: 127/77 MAP Non Invasive (Mean Arterial Pressure): 76 (06/04/25 1250) MAP Non Invasive (Mean Arterial Pressure) Min: 76 Max: 89 No data recorded SpO2: 95 % (06/04/25 0403) SpO2 Min: 95 % Max: 100 % Pain Level: 7 (06/04/25 0618) General: obese, nontoxic-appearing CV: RRR, normal S1, S2, no S3 or S4 Resp: CTA BL, no wheezing or crackles Abd: Soft, nontender, nondistended MSK: Improvement in swelling in the left upper extremity. Tenderness in the medial left thigh Lines, Drains, and Airways Line Duration Dialysis / Apheresis Double Lumen 04/29/25 1005 [facility] Tunneled Right Internal Jugular 36 days Peripheral 05/31/25 0223 [facility] Short Left Forearm 20 Gauge 4 days Peripheral 06/02/25 0100 [facility] Right Forearm 20 Gauge 2 days Intake/Output 06/01/25 07 - 06/02/25 0659 06/02/25 07 - 06/03/25 0659 06/03/25 07 - 06/04/25 0659 06/04/25 07 - 06/05/25 0659 Intake (ml) 240 -- -- -- Output (ml) 2000 -- -- 3500 Net (ml) -1760 -- -- -3500 Last Weight: 126.1 kg (278 lb) (06/02/25 08) Admit Weight: 125.6 kg (276 lb 14.4 oz) (05/31/2535) LABS: CBC: Recent Labs 06/04/25 0656 06/03/2572406/02/255206/01/2571405/31/25221 WBC 3.60* 3.65* 3.76 4.67 6.64 HB 8.2* 7.6* 7.7* 7.2* 8.2* HCT 26.8* 24.6* 24.4* 23.3* 26.1* PLT 176 193 186 172 171 MCV 95.7 95.0 93.5 94.3 93.2 RDWCV 17.4* 17.8* 18.5* 18.1* 18.3* NEUTP -- -- -- 54.8 64.1 ABSNEUT -- -- -- 2.56 4.26 LYMPHP -- -- -- 19.9 14.2 MONOP -- -- -- 18.2 17.3 EODINP -- -- -- 5.6 3.5 BMP: Recent Labs 06/04/25 0606/03/2572406/02/255306/01/2571405/31/25221 GLUC 81 88 88 78 89 NA 142 138 138 138 142 K 4.5 4.7 4.8 5.0 4.6 CHLOR 97* 96* 96* 96* 101 CO2 28 26 27 21* 21* ANION 17* 16* 15 21* 20* BUN 16 33* 23 52* 45* CREAT 5.22* 8.05* 5.85* 10.43* 8.92* CHEM: Recent Labs 06/04/25 0656 06/03/2572406/02/255306/01/2571405/31/25221 ALB 3.7* 3.6* 3.6* 3.4* 4.0 TPROT 7.4 7.2 7.0 6.8 7.6 CA 8.5 7.8* 7.7* 7.0* 8.2* MG -- -- -- -- 2.5* HEPATIC: Recent Labs 06/04/25 0656 06/03/25 0725 06/02/25 0054 06/01/25 0715 05/31/25 0222 ALKPHOS 146* 126* 132* 124* 147* ALT 17 13 10 9* 11 AST 30 31 21 20 29 TBILI 0.3 0.3 0.3 0.3 0.4 COAG: Recent Labs 06/04/25 0656 06/03/25 0725 06/02/25 0054 06/02/25 0050 06/01/25 1605 06/01/25 0715 06/01/25 0003 05/31/25 1726 05/31/25 022 APTT -- -- -- 41.9* 73.5* 67.0* 48.5* 48.6* -- INR 2.8* 2.5* 2.0* -- -- 1.8* -- -- 1.7* URINALYSIS: No results for input(s): PH, SPGR, UGLUC, UBILI, UKET, UHB, UPROT, UROBIL, UWBC, SSA in the last 168 hours. Invalid input(s): NITR CARDIAC: No results for input(s): CKTEST, CKMB, CKMBP, TROPT, PBNP in the last 168 hours. MICROBIOLOGY: Reviewed. Pertinent findings under AANDP. IMAGING: Reviewed. Pertinent findings under AANDP. 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 #Left medial thigh mass Patient with recent leadless pacemaker placement via the left femoral vein, now presents with a painful left thigh mass. CT of the lower extremities was performed and is unremarkable, ruling out pseudoaneurysm, active arterial bleed, AV fistula, arterial occlusion or thrombosis. This is reassuring given his recent invasive vascular procedure and anticoagulation status. Despite these findings, important to rule out hematoma which is plausible given the trauma, anticoagulation, and femoral venous access history. Other potential causes include muscle injury or strain, seroma formation post procedurally. Additionally given his ESRD and history of chronic wounds with intermittent infection, DVT and soft tissue infection or abscess must be carefully considered. Absence of systemic signs make abscess less likely. He is anticoagulation with warfarin fluctuating INR, and recent fall increases the risk of bleeding complications such as hematoma formation. Ultrasound GROIN MIKE indicated negative for for pseudoaneurysm, deep vein thrombosis, hematoma and arteriovenous Fistula bilaterally, right side. Plan - Repeat imaging only if symptoms persist or worsen, potentially f/u US w/outpatient or inpatient if no discharge #Fall Patient experienced a fall going up the stairs, falling is likely mechanical. Less likely to be due to true syncope or seizure disorder. Patient has multiple chronic conditions that predispose him to falls including chronic hypertension that is managed with midodrine, ESRD on dialysis, anemia and overall deconditioning from prolonged hospitalization. There is currently no evidence of head trauma or neurologic deficits. PT anticipates that pt will be able to return home without any physical therapy need Plan - Evaluate orthostatic vitals, possibly following dialysis session - Tylenol 650 mg every 6 as needed and oxycodone 15 mg p.o. every 4 as needed - Fall precautions #Severe mitral stenosis s/p MVR On-X , posterior mitral annulus patch #CAD s/p CABG #pAF on warfarin on warfarin s/p cryomaze, RADHA ligation 08/21/21 #Erratic INR #Second-degree AV block, Mobitz type I s/p leadless pacemaker 05/23 - Last TTE 05/06/25 EF 60%, LV hypertrophy, normal right ventricle, trace tricuspid valve regurg, trace pulmonic valve regurg. - During prior admission, patient presented with self supratherapeutic INR and anemia requiring transfusion. Warfarin was held, and after correction with blood products and Vit K, INR became subtherapeutic. Patient was started on a heparin drip and resumed on warfarin, but INR remained labile, requiring frequent adjustments. In the days leading up to discharge, heparin was restarted under a stroke protocol with gradual INR stabilization. Patient was discharged on warfarin 5 mg with the plan of close outpatient follow up in warfarin clinic. - On recent admission, patient had multiple episodes of bradycardia with associated hypotension, EKGs showed sinus rhythm with second-degree AV block, Mobitz type I. Patient underwent leadless pacemaker with EP (05/23), no reported complications. 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 Previous imaging showed no drainable collection but extensive venous collaterals due to central. History notable for repeated TDC placements, with bilateral subclavian and brachiocephalic vein occlusions. 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 Etiology of nonhealing ulcer was attributed to ischemic vasculopathy in the setting of ESRD/hypertension/vasculopathy/malnutrition. - Previous workup revealed severe Vitamin A, B1, C, D and Iron deficiens. Previously evaluated by plastics with no recommended surgical intervention. - DVT US of the left upper extremity is unrevealing. Plan - Previously recommended the following - Vitamin D supplement 5000 units - Ascorbic acid 500mg/day - Vit B6 50 mg/day - Vitamin A 10,000 units/day - Plastic/wound care consult; chest wound dressings to be changed daily, encourage patient to continue this - Cautious fluid resuscitation iso previous history of bleeding on ESRD on HD # ESRD on HD via right TDC (MWF) # Secondary hyperparathyroidism # Anemia - Patient missed dialysis session 05/30 due to left LE pain. Patient anuric at baseline per patient. Previous PTH elevated 181, Ca 8.2 low, Na 142, K 4.6, BUN 45, Cr 8.9. Patient has anemia of chronic disease, on weekly aranesp. Patient also on calcitriol, Sensipar, Renvela. Patient has history of low blood pressure, SBP 90s, intermittently responsive to fluids, patient on midodrine 20 mg 3 times daily. -Hgb baseline 9-. - Repeat CXR with pulmonary edema. Plan - Continue MWF HD schedule - Will give additional HD Wednesday 06/06 - Consider repeating chest x-ray prior to discharge to evaluate for resolution of pulmonary edema - Continue calcitriol MWF - Continue weekly Aranesp - Next IHD 06/01 - Continue Sensipar, Renvela with meals - Continue home midodrine - Monitor I/Os and daily weights - Fluid restriction < 1L - Avoid Lovenox, morphine, K-containing IVF, Mg- or Phos-containing enemas # Constipation -Continue Dulcolax twice daily -Continue MiraLAX as once daily -Continue senna 17.2 mg twice daily #Adjustment disorder? #Low mood Continue buspirone #Code status -full # Diet -renal # VTE PPx -warfarin 5mg # Dispo Planning - TBD Morbid Obesity Class 3 Medication Reconciliation: Completed Medication and Non-Pharmacologic VTE Prophylaxis/Anticoagulants Anticoagulant AND Antiplatelet Medications (From admission, onward) Start Dose Route Frequency Last Action Ordered Stop 06/04/25 1700 warfarin 5 mg tab(s) (COUMADIN) 5 mg PO/FT ONCE - WARFARIN Ordered 06/04/25 1414 06/05/25 0459 05/31/25 1300 aspirin 81 mg chewable tab(s) 81 mg PO DAILY Given, 06/04 1240 05/31/25 1233 -- 05/31/25 1145 activity - mobilize patient (nj,ms) VTE Prophylaxis: VTE prophylaxis appropriate Signature: Pascale Swartz MD Internal Medicine PGY-1 06/03/2025 Note: These recommendations are not final until staffed by provider. ATTENDING PHYSICIAN: Patient seen and evaluated today [place] elements of history and physical examination of the patient were confirmed. The assessment and plan were formulated and discussed with the team on Rounds. I reviewed the resident's note, examined the patient and agree with the documented findings and plan of care. Patient feels he is still fluid overloaded. And wants to feel a little stronger before he can go for his dialysis appointment as outpatient Likely discharge after dialysis on June 06 Plan of care discussed with: Provider, RN, Patient and residents . Rivas Solitario MD [place]- [phone] CBC PNL BLD AUTO Collected: 5 6:56 AM Status: F Source: [facility] Order Comment: Specimen Type : BLOOD SPECIMEN Ordering Facility: [facility] Address: [address] [place] [address] TYPE CODE TESTS RESULT OUT OF RANGE REFERENCE UNITS LAB 6690-2([facility]) WBC # Bld Auto 3.60 Low 3.70-11.00 k/uL LAB 789-8(INC) RBC # Bld Auto 2.80 Low 4.20-6.00 m/uL LAB 718-7([facility]) Hgb Bld-mCnc 8.2 Low 13.0-17.0 g/dL LAB 4544-3([facility]) Hct VFr Bld Auto 26.8 Low 39.0-51.0 % LAB 787-2([facility]) MCV RBC Auto 95.7 80.0-100.0 fL LAB 785-6([facility]) MCH RBC Qn Auto 29.3 26.0-34.0 pg LAB 786-4([facility]) MCHC RBC Auto-mCnc 30.6 30.5-36.0 g/dL LAB 14703-5([facility]) RDW RBC-Rto 17.4 High 11.5-15.0 % LAB 777-3([facility]) Platelet # Bld Auto 176 150-400 k/uL LAB 03161-5([facility]) PMV Bld Auto 11.5 9.0-12.7 fL LAB 771-6([facility]) nRBC # Bld Auto <0.01 <0.01 k/uL Performed By: #### [id number] # ### [facility] CLIA [id number] [address] [place] [address] [place] PT PNL PPP Collected: 06/04/2025 6:56 AM Status: F Source: [facility] Order Comment: Specimen Type : BLOOD SPECIMEN Ordering Facility: [facility] Address: [address] [place] [address] TYPE CODE TESTS RESULT OUT OF RANGE REFERENCE UNITS LAB 5902-2([facility]) Prothrombin time 28.2 High 9.7-13.0 sec LAB 6301-6([facility]) INR PPP 2.8 High 0.9-1.3 Result Comment: Vitamin K An tagonist (VKA) Therapeutic Range: INR 2 to 3 (Target INR of 2.5) Note: For patients treated with VKA drugs, such as warfarin, the [place] [employer] 2012 Guideline recommends a therapeutic INR range of 2 to 3 (target INR of 2.5). This recommendation includes high-risk patients with antiphospholipid syndrome with previous arterial or venous thromboembolism, current-generation mechanical or bioprosthetic aortic heart valve replacement. Note: Patients with mechanical aortic valve replacement and additional risk factors for thromboembolic events (atrial fibrillation, previous thromboembolism, LV dysfunction, hypercoagulable conditions) or an older generation mechanical AVR (i.e., ball in-Cage) or any mechanical MVR should have a INR therapeutic range of 2.5 to 3.5 (target INR of 3). Ranjit YOUSSEF, et al. Chest 2012, 141:7S-47S Kevin RA, et al. JACC 2017, 70: 252-289 Performed By: #### [id number] # ### [facility] CLIA [id number] [address] [place] [address] [place] COMP METAB 2000 PNL SERPL Collected: 6:56 AM Status: F Source: [facility] Order Comment: Specimen Type : BLOOD SPECIMEN Ordering Facility: [facility] Address: [address] [place] [address] TYPE CODE TESTS RESULT OUT OF RANGE REFERENCE UNITS LAB 2885-2(LOINC) Prot SerPl-mCnc 7.4 6.3-8.0 g/dL LAB 1751-7(LOINC) Albumin SerPl-mCnc 3.7 Low 3.9-4.9 g/dL LAB 70280-8(LOINC) Calcium SerPl-mCnc 8.5 8.5-10.2 mg/dL LAB 1975-2(LOINC) Bilirub SerPl-mCnc 0.3 0.2-1.3 mg/dL LAB 6768-6(LOINC) ALP SerPl-cCnc 146 High 38-113 U/L LAB 1920-8(LOINC) AST SerPl-cCnc 30 14-40 U/L LAB 1742-6(LOINC) ALT SerPl-cCnc 17 10-54 U/L LAB 2345-7(LOINC) Glucose SerPl-mCnc 81 74-99 mg/dL Result Comment: The [place] Diabetes Association (ADA) provides guidance for cutoff values for fasting glucose and random glucose. The ADA defines fasting as no caloric intake for at least 8 hours. Fasting plasma glucose results between 100 to 125 mg/dL indicate increased risk for diabetes (prediabetes). Fasting plasma glucose results greater than or equal to 126 mg/dL meet the criteria for diagnosis of diabetes. In the absence of unequivocal hyperglycemia, results should be confirmed by repeat testing. In a patient with classic symptoms of hyperglycemia or hyperglycemic crisis, random plasma glucose results greater than or equal to 200 mg/dL meet the criteria for diagnosis of diabetes. Reference: Standards of Medical Care in Diabetes 2016, [place] Diabetes Association. Diabetes Care. 2016.39(Suppl 1). LAB 3094-0(LOINC) BUN SerPl-mCnc 16 9-24 mg/dL LAB 2160-0(LOINC) Creat SerPl-mCnc 5.22 High 0.73-1.22 mg/dL LAB 2951-2(LOINC) Sodium SerPl-sCnc 142 136-144 mmol/L LAB 2823-3(LOINC) Potassium SerPl-sCnc 4.5 3.7-5.1 mmol/L LAB 2075-0(LOINC) Chloride SerPl-sCnc 97 Low 98-107 mmol/L LAB 2028-9(LOINC) CO2 SerPl-sCnc 28 22-30 mmol/L LAB 76538-4(LOINC) Anion Gap SerPl-sCnc 17 High 8-15 mmol/L LAB 76402-4(LOINC) eGFRcr SerPlBld CKD-EPI 2020 13 Low >=60 mL/min/1. 73m??? Result Comment: Estimated Gl omerular Filtration Rate (eGFR) is calculated using the 2020 CKD-EPI creatinine equation. This equation utilizes serum creatinine, sex, and age as parameters. The creatinine assay has traceable calibration to isotope dilution-mass spectrometry. Refer to KDIGO guidelines for clinical interpretation. In patients with unstable renal function, e.g. those with acute kidney injury, the eGFR may not accurately reflect actual GFR. Performed By: #### [id number] # ### [facility] CLIA [id number] [address] [place] [address] [place] THERAPY NT Observed: 06/03/2025 3:44 PM Status: COMPLETED Source: [facility] HNO ID: [id number] Author: JAQUELINE OLMSTEAD PT Service: Physical Therapy Author Type: Bicycle Subassembler Type: Therapy (PT/OT/Speech/Resp) Filed: 06/03/2025 16:00 Note Text: Attestation signed by Jaqueline Olmstead PT at 06/03/2025 4:00 PM I reviewed and agree with the documentation corresponding to this therapy visit. SIGNATURE: Jaqueline Olmstead PT DATE: June 03, 2025 TIME: 4:00 PM Physical Therapy Treatment Summary SERVICE DATE: 06/03/2025 SERVICE TIME: 1514 to 1531 ROOM: H081- PT 6 Clicks Score: 22 DISCHARGE RECOMMENDATIONS Outpatient PT Recommended Discharge Disposition Comments: to address decreased endurance and fall risk Anticipated Discharge Needs: Physical Assist at Home Physical Assist at Home for: Cleaning, Laundry, Shopping, Transportation, Stairs Recommended Discharge Equipment: To Be Determined ASSESSMENT Pt was able to ambulate short distance today, motivated to be OOB Response to Therapy Interventions: Good Participation in Activities, Improved Tolerance for Activity PRECAUTIONS Fall Risk, Lines/Tubes/Drains, Pacemaker CURRENT HOSPITAL COURSE 45 year old male admitted for left groin mass Relevant Past Medical History: ESRD on HD, HTN, Afib s/p MV replacement (on coumadin), secondary hyperparathyroidism, vasculopathy with hx of SVC syndrome and brachiocephalic chronic occlusive disease, HLD, obesity, YEIMY HOME LIVING Patient Lives With: Family, Spouse Assistance Available: Part-Time Entry To Home: Stairs Number Of Stairs Into Home: 3 Number Of Stairs To Bed/Bath: 0 Tub/Shower Type: Tub shower, has been spongebathing Laundry: Shares task, on 1st level, Pt folds Equipment Owned: Cane, Walker- Wheeled, Hand Held Shower PRIOR FUNCTIONAL LEVEL Within Functional Limits, Required Assistance, History of Falls Assistance Required With: Laundry, Cleaning, Meals, Shopping Pt reports one recent fall. Is otherwise independent with mobility. Lives with and children SUBJECTIVE THERAPY DIAGNOSIS Reduced mobility-other, Unsteadiness on feet TREATMENT INTERVENTIONS Gait Training (04564) Timed Code Treatment (minutes): 17 Skilled Treatment Time (minutes): 17 TRAINING AND EDUCATION PROVIDED Assistive Device Use, Benefits of In-Hospital Mobility, Bed Mobility, Role of Physical Therapy, Transfers, Falls Prevention, Gait Pattern, Reduction of Deviations THERAPEUTIC SKILLS USED Cuing Visual, Cuing Verbal, Cuing Tactile, Cues for Sequencing/Proper Technique for Activity, Activity Dosing FUNCTIONAL STATUS Bed Mobility Rolling: Stand By Assistance Supine To Sit: Stand By Assistance Sit to Supine: (NT) Scooting: Stand By Assistance Transfers Sit To Stand: Stand By Assistance Stand To Sit: Stand By Assistance Bed to Chair Stand By Assistance Bed To Chair Transfer Type: Stepping Gait Stand By Assistance Gait Device: Wheeled Walker Gait Distance (feet): 20 Stairs GOALS Patient will demonstrate progress with functional mobility to allow safe discharge to home with available support and/or physical assistance. Rehab Potential: Good Progress Toward Goals: Progressing as expected ACUTE CARE TREATMENT PLAN PT Frequency: 3 Times Per Week (2) Treatment Interventions: Education, Strengthening, Functional Mobility Training, Balance Training, Neuromuscular Re-education Plan for Next Visit: Gait Training SIGNATURE: Artie Chi PTA PATIENT NAME: Elia Weston DATE: June 03, 2025 TIME: 3:44 PM CONSULT PROG Observed: 06/03/2025 2:48 PM Status: COMPLETED Source: [facility] HNO ID: [id number] Author: CAMILO NORTON PA-C Service: Nephrology Author Type: Physician Teacher Tutor Type: Consult Progress Note Filed: 06/03/2025 14:51 Note Text: Department of Kidney Medicine Medical Specialties [place] [facility] Q6 NEPHROLOGY CONSULT SERVICE PROGRESS NOTE INTERVAL HISTORY: - seen on HD tolerating well, UF goal 3L with midodrine, BP soft but stable - adding on for IUF tomorrow for additional 3L fluid removal MEDICATIONS: Current Facility-Administered Medications Medication Dose Route Frequency NaCl 0.9% iv flush bag 20 mL INTRAVENOUS PRN acetaminophen 650 mg tab(s) (TYLENOL) 650 mg ORAL/FEEDING TUBE q 6 H PRN aspirin 81 mg chewable tab(s) 81 mg ORAL DAILY midodrine 20 mg tab(s) (PROAMATINE) 20 mg ORAL q 8 H bisacodyl EC 10 mg tab(s) (DULCOLAX) 10 mg ORAL BID senna 17.2 mg tab(s) (SENOKOT) 17.2 mg ORAL/FEEDING TUBE BID busPIRone 5 mg tab(s) (BUSPAR) 5 mg ORAL DAILY cinacalcet 30 mg tab(s) (SENSIPAR) 30 mg ORAL DAILY sevelamer carbonate 800 mg tab(s) (RENVELA) 800 mg ORAL TID w MEALS ascorbic acid 500 mg chewable tab(s) 500 mg ORAL DAILY B Complex-Vitamin C-Folic Acid 1 tablet tab(s) (JOHNSON-VIT) 1 tablet ORAL DAILY calcitriol 1.5 mcg cap(s) (ROCALTROL) 1.5 mcg ORAL MO-WE-FR melatonin 9 mg tab(s) 9 mg ORAL AT BEDTIME pyridoxine (vitamin B6) 50 mg tab(s) (VITAMIN B6) 50 mg ORAL DAILY vitamin A 10,000 Units cap(s) (AQUASOL A) 10,000 Units ORAL DAILY cholecalciferol 5,000 Units tab(s) (VITAMIN D3) 5,000 Units ORAL/FEEDING TUBE DAILY clobetasol topical ointment 0.05% (TEMOVATE) TOPICAL BID diazePAM 2.5 mg injection (VALIUM) 2.5 mg INTRAVENOUS q 12 H PRN fentaNYL 50 mcg/mL 25 mcg injection (SUBLIMAZE) 25 mcg INTRAVENOUS DAILY PRN fentaNYL 50 mcg/mL 50 mcg injection (SUBLIMAZE) 50 mcg INTRAVENOUS DAILY PRN ondansetron (PF) 4 mg injection (ZOFRAN) 4 mg INTRAVENOUS q 6 H PRN oxyCODONE IR 15 mg tab(s) (ROXICODONE) 15 mg ORAL/FEEDING TUBE q 4 H PRN dextrose 15 gram/32 mL 15 g (TRUEPLUS) 15 g ORAL PRN Or glucagon 1 mg injection 1 mg INTRAMUSCULAR PRN Or dextrose 10% iv bolus 12.5 g INTRAVENOUS PRN midodrine 10 mg tab(s) (PROAMATINE) 10 mg ORAL PRN DIALYSIS polyethylene glycol 3350 17 g packet 17 g ORAL BID warfarin 5 mg tab(s) (COUMADIN) 5 mg ORAL/FEEDING TUBE ONCE - WARFARIN ALLERGIES: Gabapentin and Trazodone PHYSICAL EXAM: BP 102/63 Pulse 81 Temp 37.3 ?C (99.1 ?F) (Oral) Resp 17 Ht 175.3 cm (5' 9) Wt 126.1 kg (278 lb) SpO2 98% BMI 41.05 kg/m? No intake or output data in the 24 hours ending 06/03/25 1449 Constitutional:No acute distress, awake, alert and responsive Cardiovascular:Regular rate and rhythm 1+ BLE edema Respiratory:Normal respiratory effort on RA Abdomen:Soft, non-tender, non-distended Psychiatric: Alert and oriented x self, place, time, and setting Normal mood/affect Vascular Access: Hemodialysis catheter location: Right Tunneled internal jugular. Exit site demonstrates: normal findings Lines, Drains, and Airways Line Duration Dialysis / Apheresis Double Lumen 04/29/25 1005 [facility] Tunneled Right Internal Jugular 35 days Peripheral 05/31/25 0223 [facility] Short Left Forearm 20 Gauge 3 days Peripheral 06/02/25 0100 [facility] Right Forearm 20 Gauge 1 day Labs: Recent Labs 06/03/25 0725 06/02/25 0054 06/02/25 0053 06/02/25 0050 06/01/25 1605 06/01/25 0715 WBC 3.65* -- 3.76 -- -- 4.67 HB 7.6* -- 7.7* -- -- 7.2* HCT 24.6* -- 24.4* -- -- 23.3* PLT 193 -- 186 -- -- 172 INR 2.5* 2.0* -- -- -- 1.8* APTT -- -- -- 41.9* 73.5* 67.0* NA 138 138 -- -- -- 138 K 4.7 4.8 -- -- -- 5.0 CHLOR 96* 96* -- -- -- 96* CO2 26 27 -- -- -- 21* ANION 16* 15 -- -- -- 21* BUN 33* 23 -- -- -- 52* CREAT 8.05* 5.85* -- -- -- 10.43* GLUC 88 88 -- -- -- 78 CA 7.8* 7.7* -- -- -- 7.0* Recent Labs 06/03/25 0725 06/02/25 0054 06/01/25 0715 TPROT 7.2 7.0 6.8 ALB 3.6* 3.6* 3.4* ALT 13 10 9* AST 31 21 20 ALKPHOS 126* 132* 124* TBILI 0.3 0.3 0.3 ASSESSMENT: Mr. 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 Patient underwent pacemaker placement during his most recent hospitalization he is back for concern for groin wound. Nephrology consulted for ESR management. 1.ESRD -Etiology: HTN Renal Biopsy 2005 for renal failure of undetermined etiology. 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 using an angioplasty balloon per IR iElectrolytes:-stable for ESRD iAcid base-stable iVolume status:hypervolemia iAnemia: -Multiple mechanisms, Renal anemia, and below goal, on weekly aranesp, resume if LOS>7 days or Hgb<8 iBone Mineral Disease: -Calcitriol 1.5mcg TIW, Sensipar 30mg daily, Revela 800mg TID with meals -PTH 578--> 181 PLAN: - HD today 4.5hr UF 3L - IUF tomorrow goal 3L and then continue HD MWF - continue calcitriol and sensipar - renvela with meals Standard ESRD recommendations and precautions: - Strict IANDOs and Daily weight - Consider a Potassium restricted (2g/day) Diet for HD patients - Fluid restriction < 1 L - Start renal multivitamin to replace water-soluble vitamins lost during dialysis - Avoid Lovenox, Morphine, K-containing IVF, Mg- or Phos- containing enemas Consent for DRYWALL SANDER: ESRD Please DO NOT schedule patient for a nephrology follow up appointment. Kidney care will be provided by the primary data warehousing engineer at their dialysis unit upon hospital discharge. Camilo Norton PA-C Department of Kidney Medicine [facility] June 03, 2025 2:49 PM PAGER # [phone] Disclosures: Parts of the current progress note may have been copied from a previous note. FOR AFTER HOUR CONCERNS BETWEEN 5PM - 7AM CONTACT ON-CALL NEPHROLOGY FELLOW [phone] PROGRESS Observed: 06/03/2025 2:47 PM Status: COMPLETED Source: [facility] ID: [id number] Author: BEULAH RAMEY MD Service: General Internal Medicine Author Type: Physician Type: Progress Notes Filed: 06/03/2025 14:50 Note Text: [facility] STAFF PHYSICIAN NOTE OF PERSONAL INVOLVEMENT IN CARE I have reviewed the note documented by the resident and I personally participated in the mendoza components. I have discussed the case and management of the patient's care. The following comments revise or confirm relevant mendoza components of the note. Pt seen during HD in Q6 States that he is still over his dry weight Spoke to Nephrology: due to soft BP, they only removed 2 lts on Friday Pt is also not compliant with Low Na and renal diet : Counseled Pt , change diet to renal + low Na diet Nephrology will do additional session of UF tomorrow: Please administer midodrine prior to hemodialysis to give room for ultrafiltration INR 2.5, Continue 5 mg Coumadin tonamnju Ramey MD, MEd, FACP Staff, Dept. Of Hospital Medicine PAGER - [phone] CASE MANAGEM Observed: 06/03/2025 11:43 AM Status: COMPLETED Source: [facility] HNO ID: [id number] Author: KALANI DIEGO RN Service: Care Management Author Type: Registered Nurse Type: Care Mgt Progress Note Filed: 06/03/2025 12:54 Note Text: CARE MANAGEMENT PROGRESS NOTE NO SKILLED NEEDS SERVICE DATE: 06/03/2025 SERVICE TIME: 11:43 AM LOS: 3 days Needs Prior to Discharge: None IMM Follow Up Copy Given: Yes Copy given to:: Patient Method: In Person Pt remains with no skilled needs identified to date. Pt remains on RA. Pt remains on no notable IVs. escalation engineer pt for OP therapy. Dialysis coordinator following. Pts family will provide dc transport. Pt will need IMM no later than 4 hours prior to dc (only good for 48-hours)---given last 06/03. CM to re-screen on 06/06, unless pt to dc prior. CM will continue to follow. Please see Treatment Team for Care Management Weekend/Holiday coverage. Please note: Should any case management needs arise over the weekend/holiday, please contact the weekend/holiday CM. Please note, however, that NEW referrals will likely not be able to verified for insurance nor can precerts be initiated over the weekend/holiday d/t unavailability of insurance review and accepting agencies/facilities. *Please note* New Standard of Care: The dc lounge is a designated area for dc'd pts who are waiting for their ride home. This area is best suited for pts who can sit for an extended period and require minimal ambulatory assistance. Medications and equipment, such as O2, can be delivered to the pt while waiting in the dc lounge, provided the delivering service is aware of pts location. Pts will have the ability to order a free lunch while waiting, if applicable. An scheduler maintenance is also available to pts in the dc lounge. The lounge is not suitable for patients who require medication, isolation or treatment between discharge and pickup as well as those individuals with disruptive behavior or bladder/bowel incontinence. Dc Lounge Hours: M-F [phone]; for a weekend dc or dc after-hours Red Coat Attendants are available to assist. If your pt is eligible to utilize the dc lounge, please make pt aware that waiting in the dc lounge is the new standard of care at [facility] and place the order prior to dc. SIGNATURE: Kalani Diego RN PATIENT NAME: Elia Weston DATE: June 03, 2025 TIME: 11:43 AM THERAPY NT Observed: 06/03/2025 7:44 AM Status: COMPLETED Source: [facility] HNO ID: [id number] Author: NAVARRO CHOW OTR/Javier OTByron Service: Occupational Therapy Author Type: Occupational Therapist Type: Therapy (PT/OT/Speech/Resp) Filed: 06/03/2025 07:44 Note Text: OCCUPATIONAL THERAPY MISSED VISIT SERVICE DATE: 06/03/2025 SERVICE TIME: 742 ROOM: [place] [address] (-1 [facility]) Patient not seen due to Test / Procedure. SIGNATURE: CLIFF Mckeon/YAA Herrera PATIENT NAME: Elia Weston DATE: June 03, 2025 TIME: 7:44 AM CBC PNL BLD AUTO Collected: 7:25 AM Status: F Source: [facility] Order Comment: Specimen Type : BLOOD SPECIMEN Ordering Facility: [facility] Address: [address] [place] [address] TYPE CODE TESTS RESULT OUT OF RANGE REFERENCE UNITS LAB 6690-2(LOINC) WBC # Bld Auto 3.65 Low 3.70-11.00 k/uL LAB 789-8(LOINC) RBC # Bld Auto 2.59 Low 4.20-6.00 m/uL LAB 718-7(LOINC) Hgb Bld-mCnc 7.6 Low 13.0-17.0 g/dL LAB 4544-3(LOINC) Hct VFr Bld Auto 24.6 Low 39.0-51.0 % LAB 787-2(LOINC) MCV RBC Auto 95.0 80.0-100.0 fL LAB 785-6(LOINC) MCH RBC Qn Auto 29.3 26.0-34.0 pg LAB 786-4(LOINC) MCHC RBC Auto-mCnc 30.9 30.5-36.0 g/dL LAB 37505-3(LOINC) RDW RBC-Rto 17.8 High 11.5-15.0 % LAB 777-3([facility]) Platelet # Bld Auto 193 150-400 k/uL LAB 92701-9([facility]) PMV Bld Auto 11.1 9.0-12.7 fL LAB 771-6([facility]) nRBC # Bld Auto <0.01 <0.01 k/uL Performed By: #### 20802-0 # ### [facility] CLIA [id number] [address] [place] [address] [place] COMP METAB 2000 PNL SERPL Collected: 7:25 AM Status: F Source: [facility] Order Comment: Specimen Type : BLOOD SPECIMEN Ordering Facility: [facility] Address: [address] [place] [address] TYPE CODE TESTS RESULT OUT OF RANGE REFERENCE UNITS LAB 2885-2([facility]) Prot SerPl-mCnc 7.2 6.3-8.0 g/dL LAB 1751-7([facility]) Albumin SerPl-mCnc 3.6 Low 3.9-4.9 g/dL LAB 97006-0([facility]) Calcium SerPl-mCnc 7.8 Low 8.5-10.2 mg/dL LAB 1975-2([facility]) Bilirub SerPl-mCnc 0.3 0.2-1.3 mg/dL LAB 6768-6([facility]) ALP SerPl-cCnc 126 High 38-113 U/L LAB 1920-8([facility]) AST SerPl-cCnc 31 14-40 U/L LAB 1742-6([facility]) ALT SerPl-cCnc 13 10-54 U/L LAB 2345-7([facility]) Glucose SerPl-mCnc 88 74-99 mg/dL Result Comment: The [place] Diabetes Association (ADA) provides guidance for cutoff values for fasting glucose and random glucose. The ADA defines fasting as no caloric intake for at least 8 hours. Fasting plasma glucose results between 100 to 125 mg/dL indicate increased risk for diabetes (prediabetes). Fasting plasma glucose results greater than or equal to 126 mg/dL meet the criteria for diagnosis of diabetes. In the absence of unequivocal hyperglycemia, results should be confirmed by repeat testing. In a patient with classic symptoms of hyperglycemia or hyperglycemic crisis, random plasma glucose results greater than or equal to 200 mg/dL meet the criteria for diagnosis of diabetes. Reference: Standards of Medical Care in Diabetes 2016, [place] Diabetes Association. Diabetes Care. 2016.39(Suppl 1). LAB 3094-0(LOINC) BUN SerPl-mCnc 33 High 9-24 mg/dL LAB 2160-0(LOINC) Creat SerPl-mCnc 8.05 High 0.73-1.22 mg/dL LAB 2951-2(LOINC) Sodium SerPl-sCnc 138 136-144 mmol/L LAB 2823-3(LOINC) Potassium SerPl-sCnc 4.7 3.7-5.1 mmol/L LAB 2075-0(LOINC) Chloride SerPl-sCnc 96 Low 98-107 mmol/L LAB 202-9(LOINC) CO2 SerPl-sCnc 26 22-30 mmol/L LAB 61135-7(LOINC) Anion Gap SerPl-sCnc 16 High 8-15 mmol/L LAB 24064-0(LOINC) eGFRcr SerPlBld CKD-EPI 2020 8 Low >=60 mL/min/1. 73m??? Result Comment: Estimated Gl omerular Filtration Rate (eGFR) is calculated using the 2020 CKD-EPI creatinine equation. This equation utilizes serum creatinine, sex, and age as parameters. The creatinine assay has traceable calibration to isotope dilution-mass spectrometry. Refer to KDIGO guidelines for clinical interpretation. In patients with unstable renal function, e.g. those with acute kidney injury, the eGFR may not accurately reflect actual GFR. Performed By: #### 03922-2 # ### [facility] CLIA [id number] [address] [place] [address] [place] PT PNL PPP Collected: 06/03/2025 7:25 AM Status: F Source: [facility] Order Comment: Specimen Type : BLOOD SPECIMEN Ordering Facility: [facility] Address: [address] [place] [address] TYPE CODE TESTS RESULT OUT OF RANGE REFERENCE UNITS LAB 5902-2(LOINC) Prothrombin time 25.8 High 9.7-13.0 sec LAB 6301-6(LOINC) INR PPP 2.5 High 0.9-1.3 Result Comment: Vitamin K An tagonist (VKA) Therapeutic Range: INR 2 to 3 (Target INR of 2.5) Note: For patients treated with VKA drugs, such as warfarin, the [place] College [employer] Chest Physicians 2012 Guideline recommends a therapeutic INR range of 2 to 3 (target INR of 2.5). This recommendation includes high-risk patients with antiphospholipid syndrome with previous arterial or venous thromboembolism, current-generation mechanical or bioprosthetic aortic heart valve replacement. Note: Patients with mechanical aortic valve replacement and additional risk factors for thromboembolic events (atrial fibrillation, previous thromboembolism, LV dysfunction, hypercoagulable conditions) or an older generation mechanical AVR (i.e., ball in-Cage) or any mechanical MVR should have a INR therapeutic range of 2.5 to 3.5 (target INR of 3). Ranjit GH, et al. Chest 2012, 141:7S-47S Kevin RA, et al. [facility] 2017, 70: 252-289 Performed By: #### 98577-4 # ### [facility] CLIA [id number] [address] [place] [address] [facility] THERAPY NT Observed: 06/02/2025 1:51 PM Status: COMPLETED Source: [facility] HNO ID: [id number] Author: JEAN-PAUL WHITLOCK OT/L Service: Occupational Therapy Author Type: Occupational Therapist Type: Therapy (PT/OT/Speech/Resp) Filed: 06/02/2025 14:41 Note Text: OCCUPATIONAL THERAPY MISSED VISIT SERVICE DATE: 06/02/2025 SERVICE TIME: 1351 ROOM: [place] [address] Patient not seen due to Declined to Participate secondary to fatigue and pain. Patient educated on benefits of OT. SIGNATURE: JASWINDER Helms PATIENT NAME: Elia Weston DATE: June 02, 2025 TIME: 2:41 PM US ARM VEIN DVT UNL VAS LAB Observed: 1:21 PM Status: F Source: [facility] Non-Invasive Vascular [facility] Portable Upper Extremity Venous Duplex Unilateral - Left Date of service/time: 06/02/2025 1:21:01 PM Name: ELIA WESTON Date: 1980 Age: 45 years Gender: M Clinical Indication Left arm swelling. TECHNIQUE -------- A venous duplex ultrasound examination was performed, including grayscale imaging with compression maneuvers and color Doppler and spectral Doppler examination with augmentation maneuvers and response to respiration of the below mentioned veins. FINDINGS -------- LEFT SIDE Internal jugular vein Doppler: normal flow. Compression: normal. Subclavian vein Doppler: retrograde flow. Axillary vein Doppler: retrograde flow. Brachial vein Doppler: normal flow. Compression: normal. Basilic vein Compression: normal. Cephalic vein Compression: normal. IMPRESSION LEFT SIDE - DEEP VEINS Technically limited study. Negative for acute deep vein thrombosis in vessels visualized. Slow retrograde flow noted in the subclavian and axillary vein. Inominate vein not visualized. Large neck collaterals noted. May wish other means of evaluation. Unable to visualize right subclavian vein due to line and subcuntaneous air. Technologist: Ellie Lam RVT, [facility] Ordering physician: RIVAS SOLITARIO Interpreting physician: Sumeet Bundy MD, LEONIDAS Final CC [employer] [facility] Image : [id number] See Link below for Image XR CHEST 1V FRONTAL PORT Observed: 06/02 12:35 PM Status: F Source: [facility] * * *Final Report* * * DATE OF EXAM: Jun 02 2025 12:35PM JOAN [id number] - XR CHEST 1V FRONTAL PORT / PROCEDURE REASON: Shortness of breath * * * * Physician Interpretation * * * * EXAMINATION: CHEST RADIOGRAPH (PORTABLE SINGLE VIEW AP) Exam Date/Time: 06/02/2025 12:35 PM Clinical History: Shortness of breath MQ: [id number] Comparison: 05/31/2025 RESULT: Lines, tubes, and devices: Stable right central double-lumen catheter in right atrium. Lungs and pleura: Mild pulmonary edema noted. No pneumothorax or substantial pleural effusions. Cardiomediastinal silhouette: Stable cardiomediastinal silhouette. Other: . IMPRESSION: See result. Residential Driver: AZAM Transcribe Date/Time: Jun 02 2025 12:48P Dictated by : AVINASH TODD MD This examination was interpreted and the report reviewed and electronically signed by: AVINASH TODD MD on Jun 02 2025 12:49PM EST [id number] THERAPY NT Observed: 06/02/2025 12:34 PM Status: COMPLETED Source: [facility] HNO ID: [id number] Author: JAQUELINE OLMSTEAD PT Service: Physical Therapy Author Type: Physical Therapist Type: Therapy (PT/OT/Speech/Resp) Filed: 06/02/2025 12:34 Note Text: Physical Therapy Treatment Summary SERVICE DATE: 06/02/2025 SERVICE TIME: 1151 to 1221 ROOM: [place] [address] PT 6 Clicks Score: 21 DISCHARGE RECOMMENDATIONS Outpatient PT Recommended Discharge Disposition Comments: to address decreased endurance and fall risk Anticipated Discharge Needs: Physical Assist at Home Physical Assist at Home for: Cleaning, Laundry, Shopping, Transportation, Stairs Recommended Discharge Equipment: To Be Determined ASSESSMENT Response to Therapy Interventions: Good Participation in Activities, Pain RN approved session. Bed to chair with SBAx1 with no device, demonstrated increased lateral sway and flexed forward posture. Able to ambulate 30 ft with CGAx1 with wheeled walker. Pt tearful throughout session due to decreased functional mobility, PT responded with HEART. Performed seated LE exercises. Recommend outpatient PT to address decreased endurance and fall risk. PRECAUTIONS Fall Risk, Lines/Tubes/Drains, Pacemaker CURRENT HOSPITAL COURSE 45 year old male admitted for left groin mass Relevant Past Medical History: ESRD on HD, HTN, Afib s/p MV replacement (on coumadin), secondary hyperparathyroidism, vasculopathy with hx of SVC syndrome and brachiocephalic chronic occlusive disease, HLD, obesity, [facility] Patient Lives With: Family, Spouse Assistance Available: Part-Time Entry To Home: Stairs Number Of Stairs Into Home: 3 Number Of Stairs To Bed/Bath: 0 Tub/Shower Type: Tub shower, has been spongebathing Laundry: Shares task, on 1st level, Pt folds Equipment Owned: Cane, Walker- Wheeled, Hand Held Shower PRIOR FUNCTIONAL LEVEL Within Functional Limits, Required Assistance, History of Falls Assistance Required With: Laundry, Cleaning, Meals, Shopping Pt reports one recent fall. Is otherwise independent with mobility. Lives with and children SUBJECTIVE Agreeable to PT, I want to be able to do the things I need THERAPY DIAGNOSIS Reduced mobility-other, Unsteadiness on feet TREATMENT INTERVENTIONS Gait Training (20168), Therapeutic Exercise (45513) Timed Code Treatment (minutes): 30 Skilled Treatment Time (minutes): 30 TRAINING AND EDUCATION PROVIDED Discharge Planning, Falls Prevention, Positioning, Role of Physical Therapy, Transfers, Treatment Protocol, Assistive Device Use, Anatomy and Impact on Deficits, Benefits of In-Hospital Mobility, Energy Conservation, Equipment, Gait Pattern, Reduction of Deviations, Expected Functional Level, Patient Exercise/Therapy Program Support Needs, Standing Balance THERAPEUTIC SKILLS USED Activity Dosing, Cues for Sequencing/Proper Technique for Activity, Cuing Tactile, Cuing Verbal, Cuing Visual, Management of Critical Lines, Tubes and/or Drains, Proprioceptive Input, Postural Alignment Correction, Teach-Back for Education FUNCTIONAL STATUS Bed Mobility Rolling: Stand By Assistance Supine To Sit: Stand By Assistance Sit to Supine: (NT) Scooting: Stand By Assistance Transfers Sit To Stand: Stand By Assistance Stand To Sit: Stand By Assistance Bed to Chair Stand By Assistance Bed To Chair Transfer Type: Stepping Gait Contact Guard Assistance Gait Device: Wheeled Walker General Deviations/Observations: Antalgic gait, Lateral sway increased, Step length decreased, Shuffling Gait Gait Distance (feet): 30 ft Stairs GOALS Patient will demonstrate progress with functional mobility to allow safe discharge to home with available support and/or physical assistance. Rehab Potential: Good Good Rehab Potential Due To: Current objective clinical presentation, Good motivation Progress Toward Goals: Progressing as expected ACUTE CARE TREATMENT PLAN PT Frequency: 3 Times Per Week (2) Treatment Interventions: Education, Strengthening, Functional Mobility Training, Balance Training, Neuromuscular Re-education Plan for Next Visit: Gait Training SIGNATURE: Jaqueline Olmstead PT PATIENT NAME: Elia Weston DATE: June 02, 2025 TIME: 12:34 PM CONSULT Observed: 06/02/2025 12:31 PM Status: COMPLETED Source: [facility] HNO ID: [id number] Author: KIMBERLY LYNN APRN.FLORAL ASSOCIATE Service: Wound Care Team Author Type: Nurse Practitioner Type: Consults Filed: 06/02/2025 13:14 Note Text: WOUND CARE SERVICE RACKET STRINGER CONSULT NOTE SERVICE DATE: 06/02/2025 SERVICE TIME: 09 Wound Consult (From admission, onward) Start Ordered 05/31/25 1230 Wound Care Consult ONCE Electronically Signed By: Marcelo Griffith MD [ ] 05/31/25 1228 CHIEF COMPLAINT: You can look. Subjective Patient is seen at the request of Marcelo Griffith MD for my opinion regarding wounds as below. My final recommendations will be communicated back to the requesting physician by way of copy of this note or shared electronic medical record. HISTORY OF PRESENT ILLNESS: Elia Weston is a 45 year old male is being seen with the admitting diagnosis of ESRD (end stage renal disease) (HCC) [N18.6], Groin pain, chronic, left [R10.32, G89.29] being managed by the primary team. He has been admitted since 05/31. He is known to the [facility] and was last seen during a prior admission on 04/22. On assessment today, the patient has a POA wound of unknown etiology on the left lower abdomen. Brown echeverria dry wound with irregular borders, no drainage or odor present, skye skin is scarred dry and intact. Appears stable compared to prior exam. Exact etiology remains unknown at this time. POA wound of unknown etiology on the Right Upper Anterior Leg. Brown echeverria dry wound with irregular borders, no drainage or odor present, skye skin is hyperpigmented scarred dry and intact. Appears stable compared to prior exam. Exact etiology remains unknown at this time. POA wound of unknown etiology on the Right Upper Back. Wound is entirely covered by brown dry intact eschar. Irregular borders, no drainage or odor present, one absorbable suture present, skye skin is scarred dry and intact. Appears improved compared to prior exam with improved measurements. Exact etiology remains unknown at this time. POA wound of unknown etiology on the Right Chest. Full thickness wound, red/pink wound bed with yellow slough present, irregular borders, moderate serosanguinous drainage present, no odor, skye skin is scarred dry and intact. Appears improved compared to prior exam with improved measurements. Exact etiology remains unknown at this time. POA wound of unknown etiology on the Left Chest. Full thickness wound, red/pink wound bed partially covered by both brown eschar and yellow slough, irregular borders, small serosanguinous drainage present, no odor, skye skin is scarred hyperpigmented dry and intact. Appears improved compared to prior exam with improved measurements. Exact etiology remains unknown at this time. He has a POA traumatic wound on the right pretibial area that patient stated occurred after a fall at home prior to admission. Partial thickness tissue loss, red pink echeverria dry wound bed with irregular borders, scant serous drainage present, no odor, skye skin is hyperpigmented dry and intact. He also has a POA surgical wound of the left groin from catheter entry during prior admission for pacemaker placement. Wound appears to be full thickness, red/pink wound bed with echeverria slough present, irregular borders, moderate serosanguinous drainage present, no odor, skey skin is scarred moist and intact. See wound documentation and photos below. REVIEW OF SYSTEMS: GENERAL: No night sweats, fever or chills HEENT: No headache, nose bleed, mouth pain or sore throat RESPIRATORY: No cough or shortness of breath CARDIOVASCULAR: No chest pain, palpitations or extremity swelling GI: Eating, drinking and taking pills adequately. No difficulty swallowing, No abdominal pain. No nausea/vomiting/diarrhea/constipation. Continent of stool. : Oliguric/anuric, receives HD NEURO: no numbness or tingling, MENON SKIN: No rash or itching. See wound documentation. PAST MEDICAL HISTORY Diagnosis Date Anemia of chronic disorder Anuria Atrial fibrillation (HCC) 12/02/2018 on Coumadin and Amiodarone BMI 40.0-44.9, adult ([facility]) ESRD (end stage renal disease) on dialysis ([facility]) 2005 ESRD from HTN Dialysis [facility] [phone] Essential hypertension, benign 1998 EKG 09/30 NL. Hearing loss of both ears History of mitral valve stenosis Hx of bacterial endocarditis 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 due to end stage renal disease on dialysis (HCC) Kidney disease 2005 ESRD due to HTN; on IHD since 2005 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 and scoliosis h/o this 3 y. Dx by xray. Mechanical complication of arteriovenous fistula surgically created (HCC) Mechanical complication of dialysis catheter (HCC) Mitral valve disease Morbid obesity (HCC) MS (mitral stenosis) 10/08/2018 Transesophageal US [facility] on CPAP Paroxysmal atrial fibrillation (HCC) PE (pulmonary thromboembolism) (HCC) Pelvic mass Pseudoaneurysm of AV hemodialysis fistula (HCC) Wound of right side of back from friction/rubbing of jacket, goes to wound care center in [place] PAST SURGICAL HISTORY Procedure Laterality Date ARTERIOVENOUS FISTULA Left 08/29/2010 CAPSULE ENDOSCOPY 07/01/2023 CARDIOVERSION-ELECTIVE N/A 12/03/2018 200 joules synchronized - successful COLONOSCOPY 07/01/2023 EGD 06/27/2023 HERNIA REPAIR HX PAST SURGICAL HISTORY OF 08/29/2010 dialysis fistula left arm PAST SURGICAL HISTORY OF Right 03/2019 Right leg femoral vein to superficial femoral artery loop graft mid thigh REPAIR CLEFT LIP RMVL LEANN CVC W/O SUBQ PORT/TOBACCO PREVENTION HEALTH EDUCATOR 01/17/2013 SHX CARDIAC RADIOFREQUENCY ABLATION 08/21/2021 s/p Maze procedure SHX MITRAL VALVE REPLACEMENT 08/21/2021 SOCIAL HISTORY[1] FAMILY HISTORY Adopted: Yes Problem Relation Age of Onset None Mother None Father Aneurysm No Family History MEDICATIONS: Current Facility-Administered Medications Medication Dose Route Frequency NaCl 0.9% iv flush bag 20 mL INTRAVENOUS PRN acetaminophen 650 mg tab(s) (TYLENOL) 650 mg ORAL/FEEDING TUBE q 6 H PRN aspirin 81 mg chewable tab(s) 81 mg ORAL DAILY midodrine 20 mg tab(s) (PROAMATINE) 20 mg ORAL q 8 H bisacodyl EC 10 mg tab(s) (DULCOLAX) 10 mg ORAL BID polyethylene glycol 3350 17 g packet 17 g ORAL DAILY senna 17.2 mg tab(s) (SENOKOT) 17.2 mg ORAL/FEEDING TUBE BID busPIRone 5 mg tab(s) (BUSPAR) 5 mg ORAL DAILY cinacalcet 30 mg tab(s) (SENSIPAR) 30 mg ORAL DAILY sevelamer carbonate 800 mg tab(s) (RENVELA) 800 mg ORAL TID w MEALS ascorbic acid 500 mg chewable tab(s) 500 mg ORAL DAILY B Complex-Vitamin C-Folic Acid 1 tablet tab(s) (JOHNSON-VIT) 1 tablet ORAL DAILY calcitriol 1.5 mcg cap(s) (ROCALTROL) 1.5 mcg ORAL melatonin 9 mg tab(s) 9 mg ORAL AT BEDTIME pyridoxine (vitamin B6) 50 mg tab(s) (VITAMIN B6) 50 mg ORAL DAILY vitamin A 10,000 Units cap(s) (AQUASOL A) 10,000 Units ORAL DAILY cholecalciferol 5,000 Units tab(s) (VITAMIN D3) 5,000 Units ORAL/FEEDING TUBE DAILY clobetasol topical ointment 0.05% (TEMOVATE) TOPICAL BID diazePAM 2.5 mg injection (VALIUM) 2.5 mg INTRAVENOUS q 12 H PRN fentaNYL 50 mcg/mL 25 mcg injection (SUBLIMAZE) 25 mcg INTRAVENOUS DAILY PRN fentaNYL 50 mcg/mL 50 mcg injection (SUBLIMAZE) 50 mcg INTRAVENOUS DAILY PRN ondansetron (PF) 4 mg injection (ZOFRAN) 4 mg INTRAVENOUS q 6 H PRN oxyCODONE IR 15 mg tab(s) (ROXICODONE) 15 mg ORAL/FEEDING TUBE q 4 H PRN dextrose 15 gram/32 mL 15 g (TRUEPLUS) 15 g ORAL PRN Or glucagon 1 mg injection 1 mg INTRAMUSCULAR PRN Or dextrose 10% iv bolus 12.5 g INTRAVENOUS PRN warfarin 5 mg tab(s) (COUMADIN) 5 mg ORAL/FEEDING TUBE ONCE - WARFARIN ALLERGIES Allergen Reactions Gabapentin Unknown, Other: See Comments Trazodone Other: See Comments Fidgety Objective PHYSICAL EXAM: BP 118/72 Pulse 75 Temp (Src) 98.1 (Oral) Resp 18 Ht 5' 9 (1.75m) Wt 278 lb (126.1kg) SpO2 99% BMI 41.03 kg/(m2). O2 Therapy: Nasal Cannula, Liters (Numeric Only): 1.50 GENERAL: No acute distress; alert and oriented x 3 HEENT: Normocephalic, atraumatic. Moist mucous membranes. NEURO: AANDO x 3, moves all extremities with no apparent weakness, assist of 1 for bed mobility SKIN: Skin color, texture, turgor normal, no suspicious rashes or lesions. Alex score 15. See wound documentation. CARDIOVASCULAR: Pedal pulses +, capillary refill < 3 seconds, skin warm on bilateral LE, no edema GI: Continent of stool, no stool present on exam today : Oliguric/anuric, receives HD, no urine present on exam today Presenting wound information: Wound 04/22/25929 Other (Comment) Chest Right (Active) Assessments 06/02/2025 9:59 AM Wound Image Site Assessment Red;[place];Sloughing;Yellow Skye-Wound Assessment Scarred;Dry;Intact Shape irregular Wound Length (cm) 1.6 cm Wound Width (cm) 2 cm Wound Surface Area (cm2) 2.51 cm2 Wound Depth (cm) 0.4 cm Wound Volume (cm3) 0.67 cm3 Wound Healing % 97 Drainage Description Serosanguineous Drainage Amount Moderate Odor None Skye-Wound Treatment Skin Prep Treatments Cleansed Dressing Hydrofera Blue;Foam- Adhesive;Other (Comment) (vashe 5 minute soak) Dressing Changed New Dressing Status Clean;Dry;Intact Wound 04/22/25929 Other (Comment) Chest Left (Active) Assessments 06/02/2025 10:15 AM Wound Image Site Assessment Eschar;Brown;Sloughing;Yellow;Red;[place]-Wound Assessment Scarred;Hyperpigmented;Dry;Intact Shape irregular Wound Length (cm) 4 cm Wound Width (cm) 6 cm Wound Surface Area (cm2) 18.85 cm2 Wound Depth (cm) 1 cm Wound Volume (cm3) 12.566 cm3 Wound Healing % 44 Drainage Description Serosanguineous Drainage Amount Small Odor None Skye-Wound Treatment Skin Prep Treatments Cleansed Dressing Other (Comment);Hydrogel;Wet to Dry;Kerlix;Foam- Adhesive (vashe 5 minute soak) Dressing Changed New Dressing Status Clean;Dry;Intact Wound 04/22/25929 Other (Comment) Abdomen Left;Lower (Active) Assessments 06/02/2025 9:18 AM Wound Image Site Assessment Brown;Echeverria;Dry Skye-Wound Assessment Scarred;Dry;Intact Shape Irregular Drainage Amount None Odor None Skye-Wound Treatment Other (Comment) (Sween) Treatments Cleansed Dressing Other (Comment) (Sween) Dressing Changed New Dressing Status Intact Wound 04/22/25929 Other (Comment) Leg Anterior;Right;Upper (Active) Assessments 06/02/2025 9:15 AM Wound Image Site Assessment Brown;Echeverria;Dry Skye-Wound Assessment Hyperpigmented;Scarred;Dry;Intact Shape Irregular Wound Length (cm) 2 cm Wound Width (cm) 0.7 cm Wound Surface Area (cm2) 1.1 cm2 Wound Depth (cm) 0 cm Wound Volume (cm3) 0 cm3 Drainage Amount None Odor None Skye-Wound Treatment Other (Comment) (Sween) Treatments Cleansed Dressing Other (Comment) (Sween) Dressing Changed New Dressing Status Intact Wound 04/22/25 0930 Other (Comment) Back Right;Upper (Active) Assessments 06/02/2025 9:46 AM Wound Image Site Assessment Eschar;Brown;Dry;Intact Skye-Wound Assessment Scarred;Dry;Intact Shape irregular Wound Length (cm) 3 cm Wound Width (cm) 1.5 cm Wound Surface Area (cm2) 3.53 cm2 Wound Depth (cm) 0 cm Wound Volume (cm3) 0 cm3 Wound Healing % 100 Closure Sutures Drainage Amount None Odor None Skye-Wound Treatment Skin Prep Treatments Cleansed Dressing Hydrogel;Foam- Adhesive Dressing Changed New Dressing Status Clean;Dry;Intact Wound 05/23/25 2100 Surgical Catheter Entry Groin Left (Active) Assessments 06/02/2025 9:22 AM Wound Image Site Assessment Red;[place];Sloughing;Echeverria Skye-Wound Assessment Scarred;Moist ;Intact Shape irregular Wound Length (cm) 1.2 cm Wound Width (cm) 0.5 cm Wound Surface Area (cm2) 0.47 cm2 Wound Depth (cm) 0.3 cm Wound Volume (cm3) 0.094 cm3 Drainage Description Serosanguineous Drainage Amount Moderate Odor None Skye-Wound Treatment Skin Prep Treatments Cleansed Dressing Silver Alginate (AG);Foam- Adhesive Dressing Changed New Dressing Status Clean;Dry;Intact Wound 06/02/25 0909 Traumatic Pretibial Right (Active) Assessments 06/02/2025 9:09 AM Wound Image Site Assessment Red;[place];Echeverria;Dry Skye-Wound Assessment Hyperpigmented;Dry;Intact Shape Irregular Wound Length (cm) 3.3 cm Wound Width (cm) 1.8 cm Wound Surface Area (cm2) 4.67 cm2 Wound Depth (cm) 0.2 cm Wound Volume (cm3) 0.622 cm3 Drainage Description Serous Drainage Amount Scant Odor None Skye-Wound Treatment Skin Prep Treatments Cleansed Dressing Contact Layer- Restore;Foam- Adhesive Dressing Changed New Dressing Status Clean;Dry;Intact DATA Diagnostic tests reviewed for today's visit: Wound photo Most recent labs and imaging results. Impression/Recommendations Impression - Right Pretibial - Traumatic Wound - POA - Left Lower Abdomen - Unknown Etiology - POA - Right Upper Anterior Leg - Unknown Etiology - POA - Right Upper Back - Unknown Etiology - POA - Left Groin - Surgical Wound - POA - Right Chest - Unknown Etiology - POA - Left Chest - Unknown Etiology - POA Recommendations - Recommend patient receives home care vs outpatient wound center vs nursing facility upon discharge for continued management of this wound. Plan - Right Pretibial - Remove old dressing, cleanse the wound with normal saline/wound cleanser and then pat dry. Apply 3M Skin Barrier or ConvaTec skin barrier wand to the skye-wound skin and allow to dry. Cut to fit the size of the wound a piece of Urgotul Contact Layer and apply to the wound, then cover with a foam adhesive. Change dressing daily and as needed. - Left Lower Abdomen and Right Upper Anterior Leg - Apply Sween Cream to the wounds BID and as needed. - Right Upper Back - Remove old dressing, cleanse the wound with normal saline/wound cleanser and then pat dry. Apply 3M Skin Barrier or ConvaTec skin barrier wand to the skye-wound skin and allow to dry. Apply a thin layer of Hydrogel to the wound, then cover with a foam adhesive. Change dressing daily and as needed. - Left Groin - Remove old dressing, cleanse the wound with normal saline/wound cleanser and then pat dry. Apply 3M Skin Barrier or ConvaTec skin barrier wand to the skye-wound skin and allow to dry. Cut to fit the size of the wound a piece of Biatain Calcium Alginate AG and apply to the wound, then cover with a foam adhesive. Change dressing daily and as needed. - Right Chest - Remove old dressing, cleanse the wound with normal saline/wound cleanser and then pat dry. Apply Vashe ([place] # [id number]) saturated gauze and allow to sit on the wound for 5-10 minutes, gently remove and dry area. Apply 3M Skin Barrier or ConvaTec skin barrier wand to the skye-wound skin and allow to dry. Apply moistened Hydrofera Blue ([place] # [id number]) cut to fit wound and cover with a foam adhesive. Change every other day and as needed. If Hydrofera Blue turns from blue to white dressing needs to be changed. (Cut Hydrofera Blue while it is dry and then use NS to moistened before placing on the wound). Peel back to assess daily- if Hydrofera is dry add saline to moisten before reapplying. - Left Chest - Remove old dressing, cleanse the wound with normal saline/wound cleanser and then pat dry. Apply Vashe ([place] # [id number]) saturated gauze and allow to sit on the wound for 5-10 minutes, gently remove and dry area. Apply 3M Skin Barrier or ConvaTec skin barrier wand to the skye-wound skin and allow to dry. Apply a thin layer of Hydrogel to the wound, then gently fill the wound with Vashe ([place] # [id number]) moistened Kerlix and cover with a foam adhesive. Change daily and as needed. - Maintain patient on Isotour low air loss blower for the remainder of the admission- ordered today. Prevention - Apply Critic-aid Clear to perianal area and coccyx extending onto bilateral buttocks BID and as needed. - Obtain Keith-Bartolo heel protectors to bilateral lower extremities, to off-load heels, while in bed. (oracle number [id number]) - Obtain [employer] Comfort [place] Sheet (oracle number [id number]) and Turning wedge (oracle number [id number]) to off-load patient's coccyx/ischium every 2 hours. - Obtain Seating Cushion ([place] # [id number]) and use when patient is up to chair. - Off-load heels, while in bed, and off-load patient's coccyx/ischium every 2 hours. - Nutrition consult advised for optimized wound healing. - Apply ConvaTec skin barrier wand to bilateral heels and elbows daily. - WCCT will continue to follow patient. Please reconsult if wounds worsen. Barriers to Healing: Age, Body habitus, Comorbid conditions, Compliance with care regimen, Mobility, and Moisture Pressure Injury Prevention: Seat cushion, Duct Maker on Consult, Head cushion/ positioner, Heel offloading, Heel suspension boots, Moisture management, Redistribution surface, Turn schedule, and Turning positioner/wedge Counseling Provided: Prevention Dressing/ointments Observations Follow Up: Information provided to Patient and bedside RN. WCCT will continue to follow patient. Please reconsult if wounds worsen. PHOTOGRAPHY: A photo was taken of the patient's wound(s). Photos can be found in Chart Review under the Scanned Docs tab in [email or web address]. The purpose of the photo(s) is to optimize the patient's medical care and allow a visual aid to their wound evaluation and progress. Photo was taken of: wounds Thank you for including me in the care of this patient. Please re-consult our service if further wound care needs arise. I spent a total of 90 minutes on the date of the service which included preparing to see the patient, [id number] patient care, completing clinical documentation, obtaining and/or reviewing separately obtained history, performing a medically appropriate examination, counseling and educating the patient/family/caregiver, ordering medications, tests, or procedures, and communicating with other HCPs (not separately reported). SIGNATURE: Kimberly Lynn APRN.CNP PATIENT NAME: Elia Weston DATE: June 02, 2025 TIME: 12:31 PM [1] Social History Tobacco Use Smoking status: Never Smokeless tobacco: Never Vaping Use Vaping status: Never Used Substance Use Topics Alcohol use: No Drug use: No PT ED Observed: 06/02/2025 10:45 AM Status: COMPLETED Source: [facility] HN ID: [id number] Author: NAYELY GARCIA RPh Service: Pharmacy Author Type: Pharmacist Type: Patient Education Filed: 06/02/2025 10:47 Note Text: PHARMACY ANTICOAGULATION EDUCATION Patient Name: Elia Weston Account #: Data Unavailable Admission Date: 05/31/2025 1:44 AM Date of Contact: June 02, 2025 Time of Contact: 10:46 AM Patient anticipated to be discharged on warfarin as oral 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 therapy. Anticoagulant history: Patient was previously taking this oral 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 at home. Home medication/dose: Warfarin 5mg Outpatient follow-up plan: Follow-up in [facility]: [facility] pt has [facility] PCP in [place] also to manage Indication for oral anticoagulation: mechanical valve replacement - mitral as well as AF Target INR range: 2.5 - 3.5 (Target 3.0) Warfarin education status: Pharmacy confirmed patient is not new start to anticoagulation therapy listed above. If additional education is needed, please consult pharmacy for inpatient 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 education. Nayely Garcia RPh PROGRESS Observed: 06/02/2025 7:38 AM Status: COMPLETED Source: [facility] HNO ID: [id number] Author: BEULAH RAMEY MD Service: General Internal Medicine Author Type: Physician Type: Progress Notes Filed: 06/02/2025 16:47 Note Text: MEDICAL STUDENT PROGRESS NOTE INTERNAL MEDICINE This note was generated by a MEDICAL STUDENT working under the supervision of a Physician. As applicable, the findings, conclusions, and assessment of risk have been confirmed by a qualified provider. The note is NOTconsidered authenticated until addended and co-signed by the Physician at the beginning of this note. SERVICE DATE: 06/02/2025 SERVICE TIME: 816 Attending Note Subjective INTERVAL HPI: - ON: Per nursing chart patient refused care, patient states that his LLE has had reduced swelling. Reports new swelling to his left upper extremity beginning last night states that it is like fluid, denies tenderness and pain this morning. - DVT US L upper extremity ordered - Has not had a wound care change, coming today - Switched to regular diet yesterday - Left knee XR: No acute fracture or dislocation. Small osteophytes and subchondral cysts are noted in the patella. Limited evaluation of joint spaces on nonweightbearing projections. No substantial joint effusion. - On physical examination, L upper extremity is warm and well perfused, radial pulse faint but palpable, slight swelling, no erythema - VTE prophylaxis: Heparin IV infusion 25,000 units, Warfarin 7.5mg given yesterday - HDS on 1.5L nasal cannula - Labs: aPTT: 41.9, PT 20.9, INR: 2.0 Plan: - Modify Warfarin 5mg today for INR, trend INR and PT, aim for >2 for therapeutic, discontinue heparin, considerations to restart if subtherapeutic - Consider receiving repeat XR chest for Shortness of Breath - Determine wound care management for his wound care, plan to receive today Medications: Current Facility-Administered Medications Medication Dose Route Frequency NaCl 0.9% iv flush bag 20 mL INTRAVENOUS PRN acetaminophen 650 mg tab(s) (TYLENOL) 650 mg ORAL/FEEDING TUBE q 6 H PRN heparin iv infusion 25,000 units in NaCl 0.45% 250 mL STROKE NOMOGRAM 0-3,000 Units/hr INTRAVENOUS CONTINUOUS aspirin 81 mg chewable tab(s) 81 mg ORAL DAILY midodrine 20 mg tab(s) (PROAMATINE) 20 mg ORAL q 8 H bisacodyl EC 10 mg tab(s) (DULCOLAX) 10 mg ORAL BID polyethylene glycol 3350 17 g packet 17 g ORAL DAILY senna 17.2 mg tab(s) (SENOKOT) 17.2 mg ORAL/FEEDING TUBE BID busPIRone 5 mg tab(s) (BUSPAR) 5 mg ORAL DAILY cinacalcet 30 mg tab(s) (SENSIPAR) 30 mg ORAL DAILY sevelamer carbonate 800 mg tab(s) (RENVELA) 800 mg ORAL TID w MEALS ascorbic acid 500 mg chewable tab(s) 500 mg ORAL DAILY B Complex-Vitamin C-Folic Acid 1 tablet tab(s) (JOHNSON-VIT) 1 tablet ORAL DAILY calcitriol 1.5 mcg cap(s) (ROCALTROL) 1.5 mcg ORAL MO-WE- melatonin 9 mg tab(s) 9 mg ORAL AT BEDTIME pyridoxine (vitamin B6) 50 mg tab(s) (VITAMIN B6) 50 mg ORAL DAILY vitamin A 10,000 Units cap(s) (AQUASOL A) 10,000 Units ORAL DAILY cholecalciferol 5,000 Units tab(s) (VITAMIN D3) 5,000 Units ORAL/FEEDING TUBE DAILY clobetasol topical ointment 0.05% (TEMOVATE) TOPICAL BID diazePAM 2.5 mg injection (VALIUM) 2.5 mg INTRAVENOUS q 12 H PRN fentaNYL 50 mcg/mL 25 mcg injection (SUBLIMAZE) 25 mcg INTRAVENOUS DAILY PRN fentaNYL 50 mcg/mL 50 mcg injection (SUBLIMAZE) 50 mcg INTRAVENOUS DAILY PRN ondansetron (PF) 4 mg injection (ZOFRAN) 4 mg INTRAVENOUS q 6 H PRN oxyCODONE IR 15 mg tab(s) (ROXICODONE) 15 mg ORAL/FEEDING TUBE q 4 H PRN dextrose 15 gram/32 mL 15 g (TRUEPLUS) 15 g ORAL PRN Or glucagon 1 mg injection 1 mg INTRAMUSCULAR PRN Or dextrose 10% iv bolus 12.5 g INTRAVENOUS PRN Objective BP 102/71 Pulse 83 Temp 36.7 ?C (98.1 ?F) (Oral) Resp 16 Ht 175.3 cm (5' 9) Wt 125.6 kg (276 lb 14.4 oz) SpO2 98% BMI 40.89 kg/m? PHYSICAL EXAM: General appearance: Obese, not ill appearing Skin: Skin color, texture, turgor normal, no suspicious rashes or lesions Head: Normocephalic, no masses, lesions, tenderness or abnormalities Eyes: Anicteric sclera. Pupils are equally round and reactive to light. Extraocular movements are intact. No discharge. Ears: External ears normal, canals clear Lungs: Lungs clear to auscultation. No wheezing, rhonchi, rales. Heart: RRR. Normal S2, S1 evidence of prosthetic on auscultation Abdomen: Wound dressing present on left abdomen, Abdomen soft, non-tender. Bowel sounds normal. No masses, organomegaly Extremities: Positive findings: joint location: Left knee improved , some palpable mass present to the medial left thigh, tenderness and warmth to the left knee and the hip. Peripheral pulses: Normal Neuro: Gait normal. Reflexes normal and symmetric. Sensation grossly intact. DATA: Diagnostic tests reviewed for today's visit: L Knee XR: No acute fracture or dislocation. Small osteophytes and subchondral cysts are noted in the patella. Limited evaluation of joint spaces on nonweightbearing projections. No substantial joint effusion. 05/31/25: Lower Extremity Arterial Duplex for Pseudoaneurysm Bilateral/Complete : Technically difficult exam due to patient positioning and patient body habitus, unable to compress due to pain. Negative for pseudoaneurysm, deep vein thrombosis, hematoma and arteriovenous fistula bilaterally. Known occluded right superficial femoral artery to femoral vein arteriovenous graft from study done 04/21/2024. Left knee XR : pending WBC (k/uL) Date Value 06/02/2025 3.76 RBC (m/uL) Date Value 06/02/2025 2.61 (L) Hemoglobin (g/dL) Date Value 06/02/2025 7.7 (L) Hematocrit (%) Date Value 06/02/2025 24.4 (L) MCV (fL) Date Value 06/02/2025 93.5 MCH (pg) Date Value 06/02/2025 29.5 MCHC (g/dL) Date Value 06/02/2025 31.6 RDW-CV (%) Date Value 06/02/2025 18.5 (H) Platelet Count (k/uL) Date Value 06/02/2025 186 MPV (fL) Date Value 06/02/2025 11.5 Glucose (mg/dL) Date Value 06/02/2025 88 BUN (mg/dL) Date Value 06/02/2025 23 Creatinine (mg/dL) Date Value 06/02/2025 5.85 (H) Sodium (mmol/L) Date Value 06/02/2025 138 Potassium (mmol/L) Date Value 06/02/2025 4.8 Chloride (mmol/L) Date Value 06/02/2025 96 (L) CO2 (mmol/L) Date Value 06/02/2025 27 Protein, Total (g/dL) Date Value 06/02/2025 7.0 Albumin (g/dL) Date Value 06/02/2025 3.6 (L) Calcium, Total (mg/dL) Date Value 06/02/2025 7.7 (L) Alkaline Phosphatase (U/L) Date Value 06/02/2025 132 (H) Bilirubin, Total (mg/dL) Date Value 06/02/2025 0.3 AST (U/L) Date Value 06/02/2025 21 ALT (U/L) Date Value 06/02/2025 10 Hep B Surface Ab Quant (mIU/mL) Date Value 04/22/2025 858.84 Hep C Antibody IA (no units) Date Value 04/03/2007 Negative URINALYSIS pH, Arterial Date Value Ref Range Status 09/03/2021 7.52 (H) 7.35 - 7.45 Final Specific [place], Ur Date Value Ref Range Status 04/03/2007 1.010 1.005 - 1.030 Final Glucose, Urine Date Value Ref Range Status 04/03/2007 Negative NEG mg/dL Final Bilirubin, Urine Date Value Ref Range Status 04/03/2007 Negative NEG Final Ketones, Urine Date Value Ref Range Status 04/03/2007 Negative NEG Final Hemoglobin/Blood,Ur Date Value Ref Range Status 04/03/2007 1+ (A) NEG Final Protein, Urine Date Value Ref Range Status 04/03/2007 30 (A) NEG mg/dL Final WBC, Urine Date Value Ref Range Status 04/03/2007 0-5 R05 /HPF Final Assessment AND Plan Groin pain, chronic, left Present on Admission: Yes Pain and swelling of knee, left Present on Admission: Yes Anticoagulated Present on Admission: Yes Pain of left lower extremity Present on Admission: Status not on file Tachycardia Present on Admission: Status not on file Elia Weston, a 45-year-old male with ESRD on IHD (MWF), HTN, 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 #Left medial thigh mass Patient with recent leadless pacemaker placement via the left femoral vein, now presents with a painful left thigh mass. CT of the lower extremities was performed and is unremarkable, ruling out pseudoaneurysm, active arterial bleed, AV fistula, arterial occlusion or thrombosis. This is reassuring given his recent invasive vascular procedure and anticoagulation status. Despite these findings, important to rule out hematoma which is plausible given the trauma, anticoagulation, and femoral venous access history. Other potential causes include muscle injury or strain, seroma formation post procedurally. Additionally given his ESRD and history of chronic wounds with intermittent infection, DVT and soft tissue infection or abscess must be carefully considered. Absence of systemic signs make abscess less likely. He is anticoagulation with warfarin fluctuating INR, and recent fall increases the risk of bleeding complications such as hematoma formation. Ultrasound GROIN MIKE indicated negative for for pseudoaneurysm, deep vein thrombosis, hematoma and arteriovenous Fistula bilaterally, right side. Plan - Repeat imaging only if symptoms persist or worsen, potentially f/u US w/outpatient or inpatient if no discharge #Fall Patient experienced a fall going up the stairs, falling is likely mechanical. Less likely to be due to true syncope or seizure disorder. Patient has multiple chronic conditions that predispose him to falls including chronic hypertension that is managed with midodrine, ESRD on dialysis, anemia and overall deconditioning from prolonged hospitalization. There is currently no evidence of head trauma or neurologic deficits. PT anticipates that pt will be able to return home without any physical therapy need Plan - Evaluate orthostatic vitals, possibly following dialysis session - Tylenol 650 mg every 6 as needed and oxycodone 15 mg p.o. every 4 as needed - Fall precautions #Severe mitral stenosis s/p MVR On-X , posterior mitral annulus patch #CAD s/p CABG #pAF on warfarin on warfarin s/p cryomaze, RADHA ligation 08/21/21 #Erratic INR #Second-degree AV block, Mobitz type I s/p leadless pacemaker 05/23 - Last TTE 05/06/25 EF 60%, LV hypertrophy, normal right ventricle, trace tricuspid valve regurg, trace pulmonic valve regurg. - During prior admission, patient presented with self supratherapeutic INR and anemia requiring transfusion. Warfarin was held, and after correction with blood products and Vit K, INR became subtherapeutic. Patient was started on a heparin drip and resumed on warfarin, but INR remained labile, requiring frequent adjustments. In the days leading up to discharge, heparin was restarted under a stroke protocol with gradual INR stabilization. Patient was discharged on warfarin 5 mg with the plan of close outpatient follow up in warfarin clinic. - On recent admission, patient had multiple episodes of bradycardia with associated hypotension, EKGs showed sinus rhythm with second-degree AV block, Mobitz type I. Patient underwent leadless pacemaker with EP (05/23), no reported complications. 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 Previous imaging showed no drainable collection but extensive venous collaterals due to central. History notable for repeated TDC placements, with bilateral subclavian and brachiocephalic vein occlusions. 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 Etiology of nonhealing ulcer was attributed to ischemic vasculopathy in the setting of ESRD/hypertension/vasculopathy/malnutrition. - Previous workup revealed severe Vitamin A, B1, C, D and Iron deficiens. Previously evaluated by plastics with no recommended surgical intervention. Plan - DVT US L upper extremity scheduled today - Previously recommended the following - Vitamin D supplement 5000 units - Ascorbic acid 500mg/day - Vit B6 50 mg/day - Vitamin A 10,000 units/day - Plastic/wound care consult; chest wound dressings to be changed daily, encourage patient to continue this - Cautious fluid resuscitation iso previous history of bleeding on ESRD on HD # ESRD on HD via right TDC (MWF) # Secondary hyperparathyroidism # Anemia - Patient missed dialysis session 05/30 due to left LE pain. Patient anuric at baseline per patient. Previous PTH elevated 181, Ca 8.2 low, Na 142, K 4.6, BUN 45, Cr 8.9. Patient has anemia of chronic disease, on weekly aranesp. Patient also on calcitriol, Sensipar, Renvela. Patient has history of low blood pressure, SBP 90s, intermittently responsive to fluids, patient on midodrine 20 mg 3 times daily. -Hgb baseline 9-. Plan - Repeat CXR for SOB and fluid overload - Continue MWF HD schedule - Continue calcitriol MWF - Continue weekly Aranesp - Next IHD 06/01 - Continue Sensipar, Renvela with meals - Continue home midodrine - Monitor I/Os and daily weights - Fluid restriction < 1L - Avoid Lovenox, morphine, K-containing IVF, Mg- or Phos-containing enemas # Constipation -Continue Dulcolax twice daily -Continue MiraLAX as once daily -Continue senna 17.2 mg twice daily #Adjustment disorder? #Low mood Continue buspirone #Code status -full # Diet -renal # VTE PPx -warfarin 5mg # Dispo Planning - TBD Morbid Obesity Class 3 Medication Reconciliation: Completed Medication and Non-Pharmacologic VTE Prophylaxis/Anticoagulants SIGNATURE: Lico Gaxiola PATIENT NAME: Elia Weston DATE: June 02, 2025 [facility] STAFF PHYSICIAN NOTE OF PERSONAL INVOLVEMENT IN CARE I have reviewed the note documented by the resident and I personally participated in the mendoza components. I have discussed the case and management of the patient's care. The following comments revise or confirm relevant mendoza components of the note. Pt. seen and examined by me. I have reviewed the note and agree with findings and plans of care as written. I have made necessary addendum in the Note above Beulah Ramey MD, MEd, FACP Staff, Dept. Of Hospital Medicine PAGER - [phone] COMP METAB 2000 PNL SERPL Collected: 12:54 AM Status: F Source: [facility] Order Comment: Specimen Type : BLOOD SPECIMEN Ordering Facility: [facility] Address: [address] [place] [address] TYPE CODE TESTS RESULT OUT OF RANGE REFERENCE UNITS LAB 2885-2(LOINC) Prot SerPl-mCnc 7.0 6.3-8.0 g/dL LAB 1751-7(LOINC) Albumin SerPl-mCnc 3.6 Low 3.9-4.9 g/dL LAB 00650-9(LOINC) Calcium SerPl-mCnc 7.7 Low 8.5-10.2 mg/dL LAB 1975-2(LOINC) Bilirub SerPl-mCnc 0.3 0.2-1.3 mg/dL LAB 6768-6(LOINC) ALP SerPl-cCnc 132 High 38-113 U/L LAB 1920-8(LOINC) AST SerPl-cCnc 21 14-40 U/L LAB 1742-6(LOINC) ALT SerPl-cCnc 10 10-54 U/L LAB 2345-7(LOINC) Glucose SerPl-mCnc 88 74-99 mg/dL Result Comment: The [place] Diabetes Association (ADA) provides guidance for cutoff values for fasting glucose and random glucose. The ADA defines fasting as no caloric intake for at least 8 hours. Fasting plasma glucose results between 100 to 125 mg/dL indicate increased risk for diabetes (prediabetes). Fasting plasma glucose results greater than or equal to 126 mg/dL meet the criteria for diagnosis of diabetes. In the absence of unequivocal hyperglycemia, results should be confirmed by repeat testing. In a patient with classic symptoms of hyperglycemia or hyperglycemic crisis, random plasma glucose results greater than or equal to 200 mg/dL meet the criteria for diagnosis of diabetes. Reference: Standards of Medical Care in Diabetes 2016, [place] Diabetes Association. Diabetes Care. 2016.39(Suppl 1). LAB 3094-0(LOINC) BUN SerPl-mCnc 23 9-24 mg/dL LAB 2160-0(LOINC) Creat SerPl-mCnc 5.85 High 0.73-1.22 mg/dL LAB 2951-2(LOINC) Sodium SerPl-sCnc 138 136-144 mmol/L LAB 2823-3(LOINC) Potassium SerPl-sCnc 4.8 3.7-5.1 mmol/L LAB 2075-0(LOINC) Chloride SerPl-sCnc 96 Low 98-107 mmol/L LAB 2027-9(LOINC) CO2 SerPl-sCnc 27 22-30 mmol/L LAB 88044-6(LOINC) Anion Gap SerPl-sCnc 15 8-15 mmol/L LAB 59037-3(LOINC) eGFRcr SerPlBld CKD-EPI 2020 11 Low >=60 mL/min/1. 73m??? Result Comment: Estimated Gl omerular Filtration Rate (eGFR) is calculated using the 2020 CKD-EPI creatinine equation. This equation utilizes serum creatinine, sex, and age as parameters. The creatinine assay has traceable calibration to isotope dilution-mass spectrometry. Refer to KDIGO guidelines for clinical interpretation. In patients with unstable renal function, e.g. those with acute kidney injury, the eGFR may not accurately reflect actual GFR. Performed By: #### 16847-1 # ### [facility] CLIA [id number] [address] [place] [address] [place] PT PNL PPP Collected: 5 12:54 AM Status: F Source: [facility] Order Comment: Specimen Type : BLOOD SPECIMEN Ordering Facility: [facility] Address: [address] [place] [address] TYPE CODE TESTS RESULT OUT OF RANGE REFERENCE UNITS LAB 5902-2(LOINC) Prothrombin time 20.9 High 9.7-13.0 sec LAB 6301-6(LOINC) INR PPP 2.0 High 0.9-1.3 Result Comment: Vitamin K An tagonist (VKA) Therapeutic Range: INR 2 to 3 (Target INR of 2.5) Note: For patients treated with VKA drugs, such as warfarin, the [place] [employer] 2012 Guideline recommends a therapeutic INR range of 2 to 3 (target INR of 2.5). This recommendation includes high-risk patients with antiphospholipid syndrome with previous arterial or venous thromboembolism, current-generation mechanical or bioprosthetic aortic heart valve replacement. Note: Patients with mechanical aortic valve replacement and additional risk factors for thromboembolic events (atrial fibrillation, previous thromboembolism, LV dysfunction, hypercoagulable conditions) or an older generation mechanical AVR (i.e., ball in-Cage) or any mechanical MVR should have a INR therapeutic range of 2.5 to 3.5 (target INR of 3). Ranjit GH, et al. Chest 2012, 141:7S-47S Kevin RA, et al. [facility] 2017, 70: 252-289 Performed By: #### 92674-4 # ### [facility] CLIA [id number] [address] [place] [address] [place] OF [facility] CBC PNL BLD AUTO Collected: 5 12:53 AM Status: F Source: [facility] Order Comment: Specimen Type : BLOOD SPECIMEN Ordering Facility: [facility] Address: [address] [place] [address] TYPE CODE TESTS RESULT OUT OF RANGE REFERENCE UNITS LAB 6690-2(LOINC) WBC # Bld Auto 3.76 3.70-11.00 k/uL LAB 789-8(LOINC) RBC # Bld Auto 2.61 Low 4.20-6.00 m/uL LAB 718-7(LOINC) Hgb Bld-mCnc 7.7 Low 13.0-17.0 g/dL LAB 4544-3(LOINC) Hct VFr Bld Auto 24.4 Low 39.0-51.0 % LAB 787-2(LOINC) MCV RBC Auto 93.5 80.0-100.0 fL LAB 785-6(LOINC) MCH RBC Qn Auto 29.5 26.0-34.0 pg LAB 786-4(LOINC) MCHC RBC Auto-mCnc 31.6 30.5-36.0 g/dL LAB 01844-6(LOINC) RDW RBC-Rto 18.5 High 11.5-15.0 % LAB 777-3(LOINC) Platelet # Bld Auto 186 150-400 k/uL LAB 76586-6(LOINC) PMV Bld Auto 11.5 9.0-12.7 fL LAB 771-6(LOINC) nRBC # Bld Auto <0.01 <0.01 k/uL Performed By: #### 82711-8 # ### [facility] CLIA [id number] [address] [place] [address] [place] PTT, ANTICOAGULANT THERAPY Collected: 0 06/02/2025 12:50 AM Status: F Source: [facility] Order Comment: Specimen Type : BLOOD SPECIMEN Ordering Facility: [facility] Address: [address] [place] [address] TYPE CODE TESTS RESULT OUT OF RANGE REFERENCE UNITS LAB 70849-4(LOINC) aPTT PPP 41.9 High 23.0-32.4 sec Performed By: #### PTTAC ### # [facility] CLIA [id number] [address] [place] [address] NURSING PROG Observed: 06/01/2025 6:13 PM Status: COMPLETED Source: [facility] HNO ID: [id number] Author: GABREILE PEARL RN Service: ? Author Type: Registered Nurse Type: Nursing Progress Note Filed: 06/01/2025 18:14 Note Text: Other: Pt refuses care. Pt has been educated and will continue to monitor PTT, ANTICOAGULANT THERAPY Collected: 0 06/01/2025 4:05 PM Status: F Source: [facility] Order Comment: Specimen Type : BLOOD SPECIMEN Ordering Facility: [facility] Address: [address] [place] [address] TYPE CODE TESTS RESULT OUT OF RANGE REFERENCE UNITS LAB 84600-8(LOINC) aPTT PPP 73.5 High 23.0-32.4 sec Performed By: #### PTTAC ### # [facility] CLIA [id number] [address] [place] [address] THERAPY NT Observed: 06/01/2025 3:38 PM Status: COMPLETED Source: [facility] HNO ID: [id number] Author: MARÍA ESPARZA, PT, DPT Service: Physical Therapy Author Type: Physical Therapist Type: Therapy (PT/OT/Speech/Resp) Filed: 06/01/2025 15:39 Note Text: Physical Therapy Evaluation Summary SERVICE DATE: 06/01/2025 SERVICE TIME: 1456 to 1523 ROOM: [place] [address] PT 6 Clicks Score: 22 DISCHARGE RECOMMENDATIONS Home Anticipated Discharge Needs: Physical Assist at Home Physical Assist at Home for: Cleaning, Laundry, Shopping, Transportation, Stairs ASSESSMENT Response to Therapy Interventions: Good Participation in Activities Pt was able to transfer to bedside chair this date. Session limited due to pt having visitors at bedside. Anticipate that pt will be able to return home without any PT needs. PRECAUTIONS Fall Risk, Lines/Tubes/Drains, Pacemaker CURRENT HOSPITAL COURSE 45 year old male admitted for left groin mass Relevant Past Medical History: ESRD on HD, HTN, Afib s/p MV replacement (on coumadin), secondary hyperparathyroidism, vasculopathy with hx of SVC syndrome and brachiocephalic chronic occlusive disease, HLD, obesity, [facility] Patient Lives With: Family, Spouse Assistance Available: Part-Time Entry To Home: Stairs Number Of Stairs Into Home: 3 Number Of Stairs To Bed/Bath: 0 Tub/Shower Type: Tub shower, has been spongebathing Laundry: Shares task, on 1st level, Pt folds Equipment Owned: Cane, Walker- Wheeled, Hand Held Shower PRIOR FUNCTIONAL LEVEL Within Functional Limits, Required Assistance, History of Falls Assistance Required With: Laundry, Cleaning, Meals, Shopping Pt reports one recent fall. Is otherwise independent with mobility. Lives with and children SUBJECTIVE Pt pleasant and agreeable to participate in PT eval THERAPY DIAGNOSIS Reduced mobility-other TREATMENT INTERVENTIONS Evaluation, Therapeutic Activity (16675) Timed Code Treatment (minutes): 10 Skilled Treatment Time (minutes): 25 TRAINING AND EDUCATION PROVIDED Bed Mobility, Discharge Planning, Equipment, Falls Prevention, Positioning, Role of Physical Therapy, Transfers, Treatment Protocol THERAPEUTIC SKILLS USED Activity Dosing, Cues for Sequencing/Proper Technique for Activity, Cuing Tactile, Cuing Verbal, Cuing Visual, Management of Critical Lines, Tubes and/or Drains, Physical Assist FUNCTIONAL STATUS Bed Mobility Supine To Sit: Minimal Assistance Sit to Supine: (sitting up in chair at end of session) Scooting: Supervision Transfers Sit To Stand: Stand By Assistance Stand To Sit: Stand By Assistance Bed to Chair Stand By Assistance Bed To Chair Transfer Type: Stepping Gait Stand By Assistance Gait Device: None General Deviations/Observations: Antalgic gait Gait Distance (feet): 2 Stairs GOALS Patient will demonstrate progress with functional mobility to allow safe discharge to home with available support and/or physical assistance. Rehab Potential: Good Good Rehab Potential Due To: Current objective clinical presentation ACUTE CARE TREATMENT PLAN PT Frequency: 3 Times Per Week (2) Treatment Interventions: Education, Strengthening, Functional Mobility Training, Balance Training, Neuromuscular Re-education Plan for Next Visit: Gait Training SIGNATURE: María Esparza, PT, DPT PATIENT NAME: Elia Weston DATE: June 01, 2025 TIME: 3:38 PM XR KNEE 2V AP/LAT LT Observed: 1:02 PM Status: F Source: [facility] * * *Final Report* * * DATE OF EXAM: Jun 01 2025 1:02PM JOAN [id number] - XR KNEE 2V AP/LAT LT / PROCEDURE REASON: Trauma * * * * Physician Interpretation * * * * EXAMINATION: XR KNEE 2V AP/LAT LT PATIENT/TECHNOLOGIST PROVIDED HISTORY: PATIENT FELL 05/28, LT KNEE PAIN GENERALIZED CLINICAL INFORMATION ( PROVIDED BY ORDERING CLINICIAN) : Trauma TECHNIQUE: XR KNEE 2V AP/LAT LT COMPARISON: None RESULT: No acute fracture or dislocation. Small osteophytes and subchondral cysts are noted in the patella. Limited evaluation of joint spaces on nonweightbearing projections. No substantial joint effusion. IMPRESSION: No acute osseous findings. Residential Driver: PSCB Transcribe Date/Time: Jun 01 2025 1:10P Dictated by : LING CONWAY MD This examination was interpreted and the report reviewed and electronically signed by: LING CONWAY MD on Jun 01 2025 1:11PM EST [id number] CASE MGT JANNIE TORO Observed: 06/01/2025 12:10 PM Status: COMPLETED Source: [facility] HNO ID: [id number] Author: KALANI DIEGO RN Service: Care Management Author Type: Registered Nurse Type: Care Mgt Initial Assessment Filed: 06/01/2025 12:14 Note Text: CARE MANAGEMENT: ASSESSMENT AND DISCHARGE PLAN SERVICE DATE: June 01, 2025 SERVICE TIME: 12:10 PM PCP: No primary care provider on file. Primary Contact: Extended Emergency Contact Information Primary Emergency Contact: Irma Weston Address: [address] [place], [place] [id number] [place] [address] [place] Mobile Relation: Spouse Secondary Emergency Contact: Pablo Weston Mobile Relation: Mother Father: Pastor Nitesh Mcgarry Admission Status: Inpatient Insurance Provider: [employer] HMO Discharge Planning requested by: Per Department Practice Potential Transition Plans Home Advance Directives Current Advance Directive: None Briquetting Machine Operator Attempted to Assist with AD Completion: No Unable to Assist Due To:: Other: See Comment (s/o) Current Living Arrangements and Support Lives with: Type of Residence: Private Residence (House) Support: Family members How do you manage to accomplish the following: Independent: Ambulation, Transportation to appointments/community, Bathe/Shower, Dress, Meals/Meal Prep, Going to the bathroom, Medication Management Current Services/Equipment Current Post-Acute Service(s): DME, Dialysis Current DME Type: Rolling walker, Cane, Other: See Comment (hand held shower) Discharge Planning Patient Goal(s): Be able to go home, General wellness [place] of Choice Explained: [place] of [place] Given: No Reason Not Given: No placements necessary Are you interested in bedside delivery of your medications? No Discharge Planning Participant(s): Patient Patient/Family Comments: Caregiver Assessment: Caregiver is ready, willing and able to meet the patient's needs as recommended by the inter-professional team: Yes Name of Caregiver: spouse Transport at Discharge: Transportation Arrangements: Car Destination: home Needs Prior to Discharge: Needs Prior to Discharge: To Be Determined, OT/PT Evaluation Post-Acute Discharge Plan: Market Research ExecutiveRod Piler Anticipated Medical Plan of Care: TBD Medical needs prior to discharge: medical stability DISCHARGE PLAN Discharge plan discussed with: pt, primary team Anticipated Discharge Plan: Home with self care Anticipated Discharge Date: TBD DISCHARGE TRANSPORTATION Patient has been informed that discharge time is 12pm on day of discharge. Discharge Transportation: family Discharge Barriers: no PCP; not homebound Chart reviewed. PT/OT consults ordered, however, pt has a 6-click score of 22. Pt also reports driving, thus is not homebound to be able to receive HHC per Medicare guidelines. Pt also still lacks a PCP; appt to establish care set for 06/06/25. Pt on Room Air. Pt is on IV heparin. Pts family will provide dc transport. Pt screened out by CM. No skilled needs noted at this time. Pt will need IMM no later than 4 hours prior to dc (only good for 48-hours). CM to re-screen on 06/03, unless pt to dc prior. CM will continue to follow. This patient has been screened for Care Management Transitional Planning Services. At this time, it does not appear this patient will require transition planning services. Should this change, and the patient require transition planning services during this admission, please contact Case Management. *Please note* New Standard of Care: The dc lounge is a designated area for dc'd pts who are waiting for their ride home. This area is best suited for pts who can sit for an extended period and require minimal ambulatory assistance. Medications and equipment, such as O2, can be delivered to the pt while waiting in the dc lounge, provided the delivering service is aware of pts location. Pts will have the ability to order a free lunch while waiting, if applicable. An scheduler maintenance is also available to pts in the dc lounge. The lounge is not suitable for patients who require medication, isolation or treatment between discharge and pickup as well as those individuals with disruptive behavior or bladder/bowel incontinence. Dc Lounge Hours: M-F [id number]; for a weekend dc or dc after-hours Red Coat Attendants are available to assist. If your pt is eligible to utilize the dc lounge, please make pt aware that waiting in the dc lounge is the new standard of care at [facility] and place the order prior to dc. SIGNATURE: Kalani Diego RN PATIENT NAME: Elia Weston DATE: June 01, 2025 TIME: 12:10 PM CONSULT PROG Observed: 06/01/2025 11:34 AM Status: COMPLETED Source: [facility] ID: [id number] Author: CAMILO NORTON PA-C Service: Nephrology Author Type: Physician Teacher Tutor Type: Consult Progress Note Filed: 06/01/2025 11:36 Note Text: Department of Kidney Medicine Medical Specialties [place] [facility] Q6 NEPHROLOGY CONSULT SERVICE PROGRESS NOTE INTERVAL HISTORY: - seen on HD no complaints on exam, tolerating UF 2-3L well, given midodrine prior to tx heparin, Last Rate: 1,600 Units/hr (06/01/25 0853) MEDICATIONS: Current Facility-Administered Medications Medication Dose Route Frequency NaCl 0.9% iv flush bag 20 mL INTRAVENOUS PRN acetaminophen 650 mg tab(s) (TYLENOL) 650 mg ORAL/FEEDING TUBE q 6 H PRN heparin iv infusion 25,000 units in NaCl 0.45% 250 mL STROKE NOMOGRAM 0-3,000 Units/hr INTRAVENOUS CONTINUOUS aspirin 81 mg chewable tab(s) 81 mg ORAL DAILY midodrine 20 mg tab(s) (PROAMATINE) 20 mg ORAL q 8 H bisacodyl EC 10 mg tab(s) (DULCOLAX) 10 mg ORAL BID polyethylene glycol 3350 17 g packet 17 g ORAL DAILY senna 17.2 mg tab(s) (SENOKOT) 17.2 mg ORAL/FEEDING TUBE BID busPIRone 5 mg tab(s) (BUSPAR) 5 mg ORAL DAILY cinacalcet 30 mg tab(s) (SENSIPAR) 30 mg ORAL DAILY sevelamer carbonate 800 mg tab(s) (RENVELA) 800 mg ORAL TID w MEALS ascorbic acid 500 mg chewable tab(s) 500 mg ORAL DAILY B Complex-Vitamin C-Folic Acid 1 tablet tab(s) (JOHNSON-VIT) 1 tablet ORAL DAILY calcitriol 1.5 mcg cap(s) (ROCALTROL) 1.5 mcg ORAL -WE- melatonin 9 mg tab(s) 9 mg ORAL AT BEDTIME pyridoxine (vitamin B6) 50 mg tab(s) (VITAMIN B6) 50 mg ORAL DAILY vitamin A 10,000 Units cap(s) (AQUASOL A) 10,000 Units ORAL DAILY cholecalciferol 5,000 Units tab(s) (VITAMIN D3) 5,000 Units ORAL/FEEDING TUBE DAILY clobetasol topical ointment 0.05% (TEMOVATE) TOPICAL BID diazePAM 2.5 mg injection (VALIUM) 2.5 mg INTRAVENOUS q 12 H PRN fentaNYL 50 mcg/mL 25 mcg injection (SUBLIMAZE) 25 mcg INTRAVENOUS DAILY PRN fentaNYL 50 mcg/mL 50 mcg injection (SUBLIMAZE) 50 mcg INTRAVENOUS DAILY PRN ondansetron (PF) 4 mg injection (ZOFRAN) 4 mg INTRAVENOUS q 6 H PRN oxyCODONE IR 15 mg tab(s) (ROXICODONE) 15 mg ORAL/FEEDING TUBE q 4 H PRN dextrose 15 gram/32 mL 15 g (TRUEPLUS) 15 g ORAL PRN Or glucagon 1 mg injection 1 mg INTRAMUSCULAR PRN Or dextrose 10% iv bolus 12.5 g INTRAVENOUS PRN warfarin (COUMADIN) tab(s) 7.5 mg 7.5 mg ORAL/FEEDING TUBE ONCE - WARFARIN ALLERGIES: Gabapentin and Trazodone PHYSICAL EXAM: BP 92/53 Pulse 87 Temp 37.2 ?C (98.9 ?F) (Oral) Resp 15 Ht 175.3 cm (5' 9) Wt 125.6 kg (276 lb 14.4 oz) SpO2 100% BMI 40.89 kg/m? No intake or output data in the 24 hours ending 06/01/25 1134 Constitutional:No acute distress, awake, alert and responsive Cardiovascular:Regular rate and rhythm 1+ BLE edema Respiratory:Normal respiratory effort on RA Abdomen:Soft, non-tender, non-distended Psychiatric: Alert and oriented x self, place, time, and setting Normal mood/affect Vascular Access: Hemodialysis catheter location: Right Tunneled internal jugular. Exit site demonstrates: normal findings Lines, Drains, and Airways Line Duration Dialysis / Apheresis Double Lumen 04/29/25 1005 [facility] Tunneled Right Internal Jugular 33 days Peripheral 05/31/25 0223 [facility] Short Left Forearm 20 Gauge 1 day Labs: Recent Labs 06/01/25 0715 06/01/25 0003 05/31/25 1726 05/31/25 0222 WBC 4.67 -- -- 6.64 HB 7.2* -- -- 8.2* HCT 23.3* -- -- 26.1* PLT 172 -- -- 171 INR 1.8* -- -- 1.7* APTT 67.0* 48.5* 48.6* -- NA 138 -- -- 142 K 5.0 -- -- 4.6 CHLOR 96* -- -- 101 CO2 21* -- -- 21* ANION 21* -- -- 20* BUN 52* -- -- 45* CREAT 10.43* -- -- 8.92* GLUC 78 -- -- 89 CA 7.0* -- -- 8.2* MG -- -- -- 2.5* Recent Labs 06/01/25 0715 05/31/25 0222 TPROT 6.8 7.6 ALB 3.4* 4.0 ALT 9* 11 AST 20 29 ALKPHOS 124* 147* TBILI 0.3 0.4 LACT -- 1.8 ASSESSMENT: Mr. 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 Patient underwent pacemaker placement during his most recent hospitalization he is back for concern for groin wound. Nephrology consulted for ESR management. 1.ESRD -Etiology: HTN Renal Biopsy 2005 for renal failure of undetermined etiology. 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 using an angioplasty balloon per IR iElectrolytes:-stable for ESRD iAcid base-metabolic acidosis, mild iVolume status:hypervolemia iAnemia: -Multiple mechanisms, Renal anemia, and below goal, on weekly aranesp, resume if LOS>7 days or Hgb<8 iBone Mineral Disease: -Calcitriol 1.5mcg TIW, Sensipar 30mg daily, Revela 800mg TID with meals -PTH 578--> 181 PLAN: - HD today 4.5hr 3k and UF 2-3L tolerating well - next HD Friday per MWF - continue calcitriol and sesnipar - renvela with meals Standard ESRD recommendations and precautions: - Strict IANDOs and Daily weight - Consider a Potassium restricted (2g/day) Diet for HD patients - Fluid restriction < 1 L - Start renal multivitamin to replace water-soluble vitamins lost during dialysis - Avoid Lovenox, Morphine, K-containing IVF, Mg- or Phos- containing enemas Consent for DRYWALL SANDER: ESRD Please DO NOT schedule patient for a nephrology follow up appointment. Kidney care will be provided by the primary data warehousing engineer at their dialysis unit upon hospital discharge. Camilo Norton PA-C Department of Kidney Medicine [facility] June 01, 2025 11:34 AM PAGER # [phone] Disclosures: Parts of the current progress note may have been copied from a previous note. FOR AFTER HOUR CONCERNS BETWEEN 5PM - 7AM CONTACT ON-CALL NEPHROLOGY FELLOW [id number] THERAPY NT Observed: 06/01/2025 9:48 AM Status: COMPLETED Source: [facility] HNO ID: [id number] Author: MARÍA ESPARZA, PT, DPT Service: Physical Therapy Author Type: Physical Therapist Type: Therapy (PT/OT/Speech/Resp) Filed: 06/01/2025 09:48 Note Text: PHYSICAL THERAPY MISSED VISIT SERVICE DATE: 06/01/2025 SERVICE TIME: 947 ROOM: [place] [address] ([facility]) Patient not seen due to Test / Procedure. At dialysis. SIGNATURE: María Esparza PT, DPT PATIENT NAME: Elia Weston DATE: June 01, 2025 TIME: 9:48 AM THERAPY NT Observed: 06/01/2025 9:32 AM Status: COMPLETED Source: [facility] HNO ID: [id number] Author: ?, ?, ? Service: Occupational Therapy Author Type: Occupational Therapist Type: Therapy (PT/OT/Speech/Resp) Filed: 06/01/2025 09:32 Note Text: OCCUPATIONAL THERAPY MISSED VISIT SERVICE DATE: 06/01/2025 SERVICE TIME: 930 ROOM: [place] [address] ([facility] Hemod[facility]) Patient not seen due to Test / Procedure. SIGNATURE: Heide Diaz OT/L PATIENT NAME: Elia Weston DATE: June 01, 2025 TIME: 9:32 AM CBC W AUTO DIFF BLD Collected: 06/01/2025 7:[address] atus: F Source: [facility] Order Comment: Specimen Type : BLOOD SPECIMEN Ordering Facility: [facility] Address: [address] [place] [address] TYPE CODE TESTS RESULT OUT OF RANGE REFERENCE UNITS LAB 6690-2([facility]) WBC # Bld Auto 4.67 3.70-11.00 k/uL LAB 789-8([facility]) RBC # Bld Auto 2.47 Low 4.20-6.00 m/ uL LAB 718-7([facility]) Hgb Bld-mCnc 7.2 Low 13.0-17.0 g/dL LAB 4544-3([facility]) Hct VFr Bld Auto 23.3 Low 39.0-51.0 % LAB 787-2(INC) MCV RBC Auto 94.3 80.0-100.0 fL LAB 785-6([facility]) MCH RBC Qn Auto 29.1 26.0-34.0 p g LAB 786-4(INC) MCHC RBC Auto-mCnc 30.9 30.5-36.0 g/dL LAB 92094-9([facility]) RDW RBC-Rto 18.1 High 11.5-15.0 % LAB 777-3(INC) Platelet # Bld Auto 172 150-400 k/uL LAB 04436-8(INC) PMV Bld Auto 11.3 9.0-12.7 fL LAB 770-8(LOINC) Neutrophils/leuk NFr Bld Auto 54.8 % LAB 751-8(LOINC) Neutrophils # Bld Auto 2.56 1.45-7.50 k/uL LAB 736-9(INC) Lymphocytes/leuk NFr Bld Auto 19.9 % LAB 731-0(LOINC) Lymphocytes # Bld Auto 0.93 Low 1.00-4.00 k/uL LAB 5905-5(LOINC) Monocytes/leuk NFr Bld Auto 18.2 % LAB 742-7(LOINC) Monocytes # Bld Auto 0.85 <0.87 k/uL LAB 713-8(LOINC) Eosinophil/leuk NFr Bld Auto 5.6 % LAB 711-2([facility]) Eosinophil # Bld Auto 0.26 <0.46 k/uL LAB 706-2([facility]) Basophils/leuk NFr Bld Auto 1.1 % LAB 704-7([facility]) Basophils # Bld Auto 0.05 <0.11 k/uL LAB 85700-7([facility]) Imm Granulocytes/fely k NFr Bld Auto 0.4 % LAB 12020-3([facility]) Imm Granulocytes # Bld Auto <0.03 <0.10 k/uL LAB 16745-3([facility]) nRBC/100 WBC Bld-Rto 0.0 /100 WBC LAB 771-6([facility]) nRBC # Bld Auto <0.01 <0.01 k/u L LAB 92128-6([facility]) Differential method Bld Auto Performed By: #### 13498-7 # ### [facility] CLIA [id number] [address] [place] [address] [place] COMP METAB 2000 PNL SERPL Collected: 7:15 AM Status: F Source: [facility] Order Comment: Specimen Type : BLOOD SPECIMEN Ordering Facility: [facility] Address: [address] [place] [address] TYPE CODE TESTS RESULT OUT OF RANGE REFERENCE UNITS LAB 2885-2([facility]) Prot SerPl-mCnc 6.8 6.3-8.0 g/dL LAB 1751-7([facility]) Albumin SerPl-mCnc 3.4 Low 3.9-4.9 g/dL LAB 17925-6([facility]) Calcium SerPl-mCnc 7.0 Low 8.5-10.2 mg/dL LAB 1975-2([facility]) Bilirub SerPl-mCnc 0.3 0.2-1.3 mg/dL LAB 6768-6([facility]) ALP SerPl-cCnc 124 High 38-113 U/L LAB 1920-8(LOINC) AST SerPl-cCnc 20 14-40 U/L LAB 1742-6([facility]) ALT SerPl-cCnc 9 Low 10-54 U/L LAB 2345-7(LOINC) Glucose SerPl-mCnc 78 74-99 mg/dL Result Comment: The [place] Diabetes Association (ADA) provides guidance for cutoff values for fasting glucose and random glucose. The ADA defines fasting as no caloric intake for at least 8 hours. Fasting plasma glucose results between 100 to 125 mg/dL indicate increased risk for diabetes (prediabetes). Fasting plasma glucose results greater than or equal to 126 mg/dL meet the criteria for diagnosis of diabetes. In the absence of unequivocal hyperglycemia, results should be confirmed by repeat testing. In a patient with classic symptoms of hyperglycemia or hyperglycemic crisis, random plasma glucose results greater than or equal to 200 mg/dL meet the criteria for diagnosis of diabetes. Reference: Standards of Medical Care in Diabetes 2016, [place] Diabetes Association. Diabetes Care. 2016.39(Suppl 1). LAB 3094-0(LOINC) BUN SerPl-mCnc 52 High 9-24 mg/dL LAB 2160-0(LOINC) Creat SerPl-mCnc 10.43 High 0.73-1.22 mg/dL LAB 2951-2(LOINC) Sodium SerPl-sCnc 138 136-144 mmol/L LAB 2823-3(LOINC) Potassium SerPl-sCnc 5.0 3.7-5.1 mmol/L LAB 2075-0(LOINC) Chloride SerPl-sCnc 96 Low 98-107 mmol/L LAB 2028-9(LOINC) CO2 SerPl-sCnc 21 Low 22-30 mmol/L LAB 84827-2(LOINC) Anion Gap SerPl-sCnc 21 High 8-15 mmol/L LAB 38914-6(LOINC) eGFRcr SerPlBld CKD-EPI 2020 6 Low >=60 mL/min/1. 73m??? Result Comment: Estimated Gl omerular Filtration Rate (eGFR) is calculated using the 2020 CKD-EPI creatinine equation. This equation utilizes serum creatinine, sex, and age as parameters. The creatinine assay has traceable calibration to isotope dilution-mass spectrometry. Refer to KDIGO guidelines for clinical interpretation. In patients with unstable renal function, e.g. those with acute kidney injury, the eGFR may not accurately reflect actual GFR. Performed By: #### 80662-2 # ### [facility] CLIA [id number] [address] [place] [address] [place] PT PNL PPP Collected: 06/01/2025 7:15 AM Status: F Source: [facility] Order Comment: Specimen Type : BLOOD SPECIMEN Ordering Facility: [facility] Address: [address] [place] [address] TYPE CODE TESTS RESULT OUT OF RANGE REFERENCE UNITS LAB 5902-2(LOINC) Prothrombin time 18.8 High 9.7-13.0 sec LAB 6301-6(LOINC) INR PPP 1.8 High 0.9-1.3 Result Comment: Vitamin K An tagonist (VKA) Therapeutic Range: INR 2 to 3 (Target INR of 2.5) Note: For patients treated with VKA drugs, such as warfarin, the [place] College [employer] Chest [employer]icians 2012 Guideline recommends a therapeutic INR range of 2 to 3 (target INR of 2.5). This recommendation includes high-risk patients with antiphospholipid syndrome with previous arterial or venous thromboembolism, current-generation mechanical or bioprosthetic aortic heart valve replacement. Note: Patients with mechanical aortic valve replacement and additional risk factors for thromboembolic events (atrial fibrillation, previous thromboembolism, LV dysfunction, hypercoagulable conditions) or an older generation mechanical AVR (i.e., ball in-Cage) or any mechanical MVR should have a INR therapeutic range of 2.5 to 3.5 (target INR of 3). Ranjit YOUSSEF, et al. Chest 2012, 141:7S-47S Kevin RA, et al. [facility] 2017, 70: 252-289 Performed By: #### 03886-0, PTTAC #### [facility] CLIA [id number] [address] [place] [address] [place] PTT, ANTICOAGULANT THERAPY Collected: 0 06/01/2025 7:15 AM Status: F Source: [facility] Order Comment: Specimen Type : BLOOD SPECIMEN Ordering Facility: [facility] Address: [address] [place] [address] TYPE CODE TESTS RESULT OUT OF RANGE REFERENCE UNITS LAB 67892-1(LOINC) aPTT PPP 67.0 High 23.0-32.4 sec Performed By: #### 86825-2, PTTAC #### [facility] CLIA [id number] [address] [place] [address] STATES OF [facility] PROGRESS Observed: 06/01/2025 6:38 AM Status: COMPLETED Source: [facility] HNO ID: [id number] Author: RIVAS SOLITARIO MD Service: General Internal Medicine Author Type: Physician Type: Progress Notes Filed: 06/01/2025 18:59 Note Text: MEDICAL STUDENT PROGRESS NOTE INTERNAL MEDICINE This note was generated by a MEDICAL STUDENT working under the supervision of a Physician. As applicable, the findings, conclusions, and assessment of risk have been confirmed by a qualified provider. The note is NOTconsidered authenticated until addended and co-signed by the Physician at the beginning of this note. SERVICE DATE: 06/01/2025 SERVICE TIME: 638 Attending Note Subjective INTERVAL HPI: - ON: Patient was hypotensive ~3AM, 92/53, Patient was in increased pain: Received hydromorphone 0.2 mg injection - Patient currently at dialysis morning visit, reports that the swelling in his left hip has decreased, but pain still remain. Patient complains of some pain to the left knee, some warmth on physical exam - Left knee XR ordered yesterday, has not been completed - Per chart, yesterday denied nursing staff skin assessment, denied wound assessment and dressing removal, blood sugar orthostatic VS stating my body can't handle this right now and I am a diabetic, per patient this morning complains that he is concerned that the nursing staff will harrington dressing change - Nephrology recommendations: HD per MWF schedule - Wound care management recommended considerations for consultations with plastics for dressing changes and management - VTE prophylaxis: Heparin IV infusion 25,000 units, Warfarin 7.5mg given yesterday Labs: APTT 67.0 (06/01); PT: 18.8, INR: 1.8, Overnight: APTT drawn 48.5: 0003 06/01, 48.6 1751 05/31 Plan: - Receive X-ray L Knee stat - Consult Plastics for Wound Dressing Change per wound care team - Continue with Warfarin 7.5mg today for INR, trend INR and PT - Consider repeat XR chest for SOB Medications: Current Facility-Administered Medications Medication Dose Route Frequency NaCl 0.9% iv flush bag 20 mL INTRAVENOUS PRN acetaminophen 650 mg tab(s) (TYLENOL) 650 mg ORAL/FEEDING TUBE q 6 H PRN heparin iv infusion 25,000 units in NaCl 0.45% 250 mL STROKE NOMOGRAM 0-3,000 Units/hr INTRAVENOUS CONTINUOUS aspirin 81 mg chewable tab(s) 81 mg ORAL DAILY midodrine 20 mg tab(s) (PROAMATINE) 20 mg ORAL q 8 H bisacodyl EC 10 mg tab(s) (DULCOLAX) 10 mg ORAL BID polyethylene glycol 3350 17 g packet 17 g ORAL DAILY senna 17.2 mg tab(s) (SENOKOT) 17.2 mg ORAL/FEEDING TUBE BID busPIRone 5 mg tab(s) (BUSPAR) 5 mg ORAL DAILY cinacalcet 30 mg tab(s) (SENSIPAR) 30 mg ORAL DAILY sevelamer carbonate 800 mg tab(s) (RENVELA) 800 mg ORAL TID w MEALS ascorbic acid 500 mg chewable tab(s) 500 mg ORAL DAILY B Complex-Vitamin C-Folic Acid 1 tablet tab(s) (JOHNSON-VIT) 1 tablet ORAL DAILY calcitriol 1.5 mcg cap(s) (ROCALTROL) 1.5 mcg ORAL MO-WE- melatonin 9 mg tab(s) 9 mg ORAL AT BEDTIME pyridoxine (vitamin B6) 50 mg tab(s) (VITAMIN B6) 50 mg ORAL DAILY vitamin A 10,000 Units cap(s) (AQUASOL A) 10,000 Units ORAL DAILY cholecalciferol 5,000 Units tab(s) (VITAMIN D3) 5,000 Units ORAL/FEEDING TUBE DAILY clobetasol topical ointment 0.05% (TEMOVATE) TOPICAL BID diazePAM 2.5 mg injection (VALIUM) 2.5 mg INTRAVENOUS q 12 H PRN fentaNYL 50 mcg/mL 25 mcg injection (SUBLIMAZE) 25 mcg INTRAVENOUS DAILY PRN fentaNYL 50 mcg/mL 50 mcg injection (SUBLIMAZE) 50 mcg INTRAVENOUS DAILY PRN ondansetron (PF) 4 mg injection (ZOFRAN) 4 mg INTRAVENOUS q 6 H PRN oxyCODONE IR 15 mg tab(s) (ROXICODONE) 15 mg ORAL/FEEDING TUBE q 4 H PRN dextrose 15 gram/32 mL 15 g (TRUEPLUS) 15 g ORAL PRN Or glucagon 1 mg injection 1 mg INTRAMUSCULAR PRN Or dextrose 10% iv bolus 12.5 g INTRAVENOUS PRN warfarin (COUMADIN) tab(s) 7.5 mg 7.5 mg ORAL/FEEDING TUBE ONCE - WARFARIN Objective BP 123/69 Pulse 81 Temp 36.7 ?C (98.1 ?F) (Oral) Resp 15 Ht 175.3 cm (5' 9) Wt 125.6 kg (276 lb 14.4 oz) SpO2 100% BMI 40.89 kg/m? PHYSICAL EXAM: PHYSICAL EXAMINATION: General appearance: Obese, not ill appearing Skin: Skin color, texture, turgor normal, no suspicious rashes or lesions Head: Normocephalic, no masses, lesions, tenderness or abnormalities Eyes: Anicteric sclera. Pupils are equally round and reactive to light. Extraocular movements are intact. No discharge. Ears: External ears normal, canals clear Lungs: Lungs clear to auscultation. No wheezing, rhonchi, rales. Heart: RRR without murmur, gallop, or rubs. No ectopy Abdomen: Normal abdominal exam, Abdomen soft, non-tender. Bowel sounds normal. No masses, organomegaly Extremities: Positive findings: joint location: on left knee painful movement, some palpable mass present to the medial left thigh, tenderness and warmth to the left knee and the hip Peripheral pulses: Normal Neuro: Gait normal. Reflexes normal and symmetric. Sensation grossly intact. DATA: Diagnostic tests reviewed for today's visit: 05/31/25: Lower Extremity Arterial Duplex for Pseudoaneurysm Bilateral/Complete : Technically difficult exam due to patient positioning and patient body habitus, unable to compress due to pain. Negative for pseudoaneurysm, deep vein thrombosis, hematoma and arteriovenous fistula bilaterally. Known occluded right superficial femoral artery to femoral vein arteriovenous graft from study done 04/21/2024. Left knee XR : pending WBC (k/uL) Date Value 06/01/2025 4.67 RBC (m/uL) Date Value 06/01/2025 2.47 (L) Hemoglobin (g/dL) Date Value 06/01/2025 7.2 (L) Hematocrit (%) Date Value 06/01/2025 23.3 (L) MCV (fL) Date Value 06/01/2025 94.3 MCH (pg) Date Value 06/01/2025 29.1 MCHC (g/dL) Date Value 06/01/2025 30.9 RDW-CV (%) Date Value 06/01/2025 18.1 (H) Platelet Count (k/uL) Date Value 06/01/2025 172 MPV (fL) Date Value 06/01/2025 11.3 Glucose (mg/dL) Date Value 06/01/2025 78 BUN (mg/dL) Date Value 06/01/2025 52 (H) Creatinine (mg/dL) Date Value 06/01/2025 10.43 (H) Sodium (mmol/L) Date Value 06/01/2025 138 Potassium (mmol/L) Date Value 06/01/2025 5.0 Chloride (mmol/L) Date Value 06/01/2025 96 (L) CO2 (mmol/L) Date Value 06/01/2025 21 (L) Protein, Total (g/dL) Date Value 06/01/2025 6.8 Albumin (g/dL) Date Value 06/01/2025 3.4 (L) Calcium, Total (mg/dL) Date Value 06/01/2025 7.0 (L) Alkaline Phosphatase (U/L) Date Value 06/01/2025 124 (H) Bilirubin, Total (mg/dL) Date Value 06/01/2025 0.3 AST (U/L) Date Value 06/01/2025 20 ALT (U/L) Date Value 06/01/2025 9 (L) Hep B Surface Ab Quant (mIU/mL) Date Value 04/22/2025 858.84 Hep C Antibody IA (no units) Date Value 04/03/2007 Negative URINALYSIS pH, Arterial Date Value Ref Range Status 09/03/2021 7.52 (H) 7.35 - 7.45 Final Specific [place], Ur Date Value Ref Range Status 04/03/2007 1.010 1.005 - 1.030 Final Glucose, Urine Date Value Ref Range Status 04/03/2007 Negative NEG mg/dL Final Bilirubin, Urine Date Value Ref Range Status 04/03/2007 Negative NEG Final Ketones, Urine Date Value Ref Range Status 04/03/2007 Negative NEG Final Hemoglobin/Blood,Ur Date Value Ref Range Status 04/03/2007 1+ (A) NEG Final Protein, Urine Date Value Ref Range Status 04/03/2007 30 (A) NEG mg/dL Final WBC, Urine Date Value Ref Range Status 04/03/2007 0-5 R05 /HPF Final Assessment AND Plan Groin pain, chronic, left Present on Admission: Yes Pain and swelling of knee, left Present on Admission: Yes Anticoagulated Present on Admission: Yes Pain of left lower extremity Present on Admission: Status not on file Tachycardia Present on Admission: Status not on file Elia Weston, a 45-year-old male with ESRD on IHD (), HTN, 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 #Left medial thigh mass Patient with recent leadless pacemaker placement via the left femoral vein, now presents with a painful left thigh mass. CT of the lower extremities was performed and is unremarkable, ruling out pseudoaneurysm, active arterial bleed, AV fistula, arterial occlusion or thrombosis. This is reassuring given his recent invasive vascular procedure and anticoagulation status. Despite these findings, important to rule out hematoma which is plausible given the trauma, anticoagulation, and femoral venous access history. Other potential causes include muscle injury or strain, seroma formation post procedurally. Additionally given his ESRD and history of chronic wounds with intermittent infection, DVT and soft tissue infection or abscess must be carefully considered. Absence of systemic signs make abscess less likely. He is anticoagulation with warfarin fluctuating INR, and recent fall increases the risk of bleeding complications such as hematoma formation. Ultrasound GROIN MIKE indicated negative for for pseudoaneurysm, deep vein thrombosis, hematoma and arteriovenous Fistula bilaterally, right side. Plan - Repeat imaging only if symptoms persist or worsen, potentially f/u US w/outpatient or inpatient if no discharge #Fall Patient experienced a fall going up the stairs, falling is likely mechanical. Less likely to be due to true syncope or seizure disorder. Patient has multiple chronic conditions that predispose him to falls including chronic hypertension that is managed with midodrine, ESRD on dialysis, anemia and overall deconditioning from prolonged hospitalization. There is currently no evidence of head trauma or neurologic deficits. Plan - Left knee XR stat - PT/OT assessment - Evaluate orthostatic vitals, possibly following dialysis session - Tylenol 650 mg every 6 as needed and oxycodone 15 mg p.o. every 4 as needed - Fall precautions #Severe mitral stenosis s/p MVR On-X , posterior mitral annulus patch #CAD s/p CABG #pAF on warfarin on warfarin s/p cryomaze, RADHA ligation 08/21/21 #Erratic INR #Second-degree AV block, Mobitz type I s/p leadless pacemaker 05/23 - Last TTE 05/06/25 EF 60%, LV hypertrophy, normal right ventricle, trace tricuspid valve regurg, trace pulmonic valve regurg. - During prior admission, patient presented with self supratherapeutic INR and anemia requiring transfusion. Warfarin was held, and after correction with blood products and Vit K, INR became subtherapeutic. Patient was started on a heparin drip and resumed on warfarin, but INR remained labile, requiring frequent adjustments. In the days leading up to discharge, heparin was restarted under a stroke protocol with gradual INR stabilization. Patient was discharged on warfarin 5 mg with the plan of close outpatient follow up in warfarin clinic. - On recent admission, patient had multiple episodes of bradycardia with associated hypotension, EKGs showed sinus rhythm with second-degree AV block, Mobitz type I. Patient underwent leadless pacemaker with EP (05/23), no reported complications. 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 Previous imaging showed no drainable collection but extensive venous collaterals due to central. History notable for repeated TDC placements, with bilateral subclavian and brachiocephalic vein occlusions. 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 Etiology of nonhealing ulcer was attributed to ischemic vasculopathy in the setting of ESRD/hypertension/vasculopathy/malnutrition. - Previous workup revealed severe Vitamin A, B1, C, D and Iron deficiens. Previously evaluated by plastics with no recommended surgical intervention. Plan - Previously recommended the following - Vitamin D supplement 5000 units - Ascorbic acid 500mg/day - Vit B6 50 mg/day - Vitamin A 10,000 units/day - Plastic/wound care consult - Chest wound dressings to be changed daily, encourage patient to continue this - Cautious fluid resuscitation iso previous history of bleeding on ESRD on HD # ESRD on HD via right TDC (MWF) # Secondary hyperparathyroidism # Anemia - Patient missed dialysis session 05/30 due to left LE pain. Patient anuric at baseline per patient. Previous PTH elevated 181, Ca 8.2 low, Na 142, K 4.6, BUN 45, Cr 8.9. Patient has anemia of chronic disease, on weekly aranesp. Patient also on calcitriol, Sensipar, Renvela. Patient has history of low blood pressure, SBP 90s, intermittently responsive to fluids, patient on midodrine 20 mg 3 times daily. -Hgb baseline 9-11. Plan - Consider repeat CXR for SOB - Continue MWF HD schedule - Continue calcitriol MWF - Continue weekly Aranesp - Next IHD 06/01 - Continue Sensipar, Renvela with meals - Continue home midodrine - Monitor I/Os and daily weights - Fluid restriction < 1L - Avoid Lovenox, morphine, K-containing IVF, Mg- or Phos-containing enemas # Constipation -Continue Dulcolax twice daily -Continue MiraLAX as once daily -Continue senna 17.2 mg twice daily #Adjustment disorder? #Low mood Continue buspirone #Code status -full # Diet -renal # VTE PPx -warfarin # Dispo Planning -TBD Morbid Obesity Class 3 Medication Reconciliation: Completed Medication and Non-Pharmacologic VTE Prophylaxis/Anticoagulants VTE Prophylaxis: VTE prophylaxis appropriate SIGNATURE: Lico Gaxiola PATIENT NAME: Elia Weston DATE: June 01, 2025 TIME: 6:39 AM ATTENDING PHYSICIAN: Patient seen and evaluated today M[place]za elements of history and physical examination of the patient were confirmed. The assessment and plan were formulated and discussed with the team on Rounds. I reviewed the resident's note, examined the patient and agree with the documented findings and plan of care. 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 with wounds on the chest On examination slight induration in the left medial thigh but no swelling redness or tenderness-CT exam of last groin did not show any pseudoaneurysm Swelling of the left knee will get x-ray to rule out fracture or dislocation but possibility of hemarthrosis may have to be considered in view of being on 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s X-ray left knee-no fracture will request outpatient appointment with orthopedics in case any further investigation or treatment is indicated based on his symptoms If INR therapeutic tomorrow -possible discharge Dr Ramey assumes care tomorrow Plan of care discussed with: Provider, RN, Patient, Pharmacist, and residents and medical students. Rivas Solitario MD [facility] [phone] NURSING PROG Observed: 06/01/2025 1:30 AM Status: COMPLETED Source: [facility] ID: [id number] Author: EDMAR CUNNINGHAM RN Service: Nursing Author Type: Registered Nurse Type: Nursing Progress Note Filed: 06/01/2025 07:27 Note Text: Summary: Declining patient care/ADL's Other: Patient arrived to [facility] from [facility]. Pt declining full skin assessment, dressings on bilateral chest and back present on admission. Declined dressing change, wound care. Right subclavian dialysis catheter dressing is due to be changed, pt declines dressing change. Limited CHG bath done. Patient has generalized scarring and wounds. Moisture associated skin breakdown in skin folds and bilateral axilla. Strong odor from wounds and skin folds. Pt states spouse assists with ADL's at home and that he ambulates independently. PTT, ANTICOAGULANT THERAPY Collected: 0 06/01/2025 12:03 AM Status: F Source: [facility] Order Comment: Specimen Type : BLOOD SPECIMEN Ordering Facility: [facility] Address: [address] [place] [address] TYPE CODE TESTS RESULT OUT OF RANGE REFERENCE UNITS LAB 60288-3(LOINC) aPTT PPP 48.5 High 23.0-32.4 sec Performed By: #### PTTAC ### # [facility] CLIA [id number] [address] [place] [address] OF [facility] PTT, ANTICOAGULANT THERAPY Collected: 0 05/31/2025 5:26 PM Status: F Source: [facility] Order Comment: Specimen Type : BLOOD SPECIMEN Ordering Facility: [facility] Address: [address] [place] [address] TYPE CODE TESTS RESULT OUT OF RANGE REFERENCE UNITS LAB 04154-6(LOINC) aPTT PPP 48.6 High 23.0-32.4 sec Performed By: #### PTTAC ### # [facility] CLIA [id number] [address] [place] [address] NURSING PROG Observed: 05/31/2025 2:37 PM Status: COMPLETED Source: [facility] HNO ID: [id number] Author: ROCIO AUGUSTE, RN Service: Nursing Author Type: Registered Nurse Type: Nursing Progress Note Filed: 05/31/2025 14:41 Note Text: Other: 1000: Patient admitted to [place] [address]. Admission questions reviewed with patient. Patient declining skin assessment. He does have an abrasion noted to his RLE from a recent fall. Patient does have 2 dressings to his back and dressing to his left chest wall and right chest wall. Patient declining to have wounds assessed and dressings be removed. 1430: Patient returned from vascular lab for US groin. Patient declining orthostatic VS and blood sugar check. Patient stating my body just can't handle this right now and I'm not a diabetic. Dr Paez aware. CONSULT PROG Observed: 05/31/2025 1:20 PM Status: COMPLETED Source: [facility] HNO ID: [id number] Author: CAMILO NORTON PA-C Service: Nephrology Author Type: Physician Teacher Tutor Type: Consult Progress Note Filed: 05/31/2025 13:23 Note Text: Department of Kidney Medicine [facility] [place] [facility] Q6 NEPHROLOGY CONSULT SERVICE PROGRESS NOTE INTERVAL HISTORY: - discharged with last HD 05/27, readmit for groin wound concern, possible hematoma from previous pacemaker placement incision site. - labs stable with plan for HD per [facility], next inpatient session Friday heparin, Last Rate: 1,000 Units/hr (05/31/25 1123) MEDICATIONS: Current Facility-Administered Medications Medication Dose Route Frequency iv contrast (radiology procedure) INTRAVENOUS DIRECTED PRN NaCl 0.9% iv flush bag 20 mL INTRAVENOUS PRN acetaminophen 650 mg tab(s) (TYLENOL) 650 mg ORAL/FEEDING TUBE q 6 H PRN heparin iv infusion 25,000 units in NaCl 0.45% 250 mL STROKE NOMOGRAM 0-3,000 Units/hr INTRAVENOUS CONTINUOUS warfarin 7.5 mg tab(s) (COUMADIN) 7.5 mg ORAL/FEEDING TUBE ONCE - WARFARIN aspirin 81 mg chewable tab(s) 81 mg ORAL DAILY midodrine 20 mg tab(s) (PROAMATINE) 20 mg ORAL q 8 H bisacodyl EC 10 mg tab(s) (DULCOLAX) 10 mg ORAL BID polyethylene glycol 3350 17 g packet 17 g ORAL DAILY senna 17.2 mg tab(s) (SENOKOT) 17.2 mg ORAL/FEEDING TUBE BID busPIRone 5 mg tab(s) (BUSPAR) 5 mg ORAL DAILY cinacalcet 30 mg tab(s) (SENSIPAR) 30 mg ORAL DAILY sevelamer carbonate 800 mg tab(s) (RENVELA) 800 mg ORAL TID w MEALS ascorbic acid 500 mg chewable tab(s) 500 mg ORAL DAILY B Complex-Vitamin C-Folic Acid 1 tablet tab(s) (JOHNSON-VIT) 1 tablet ORAL DAILY [START ON 06/01/2025] calcitriol 1.5 mcg cap(s) (ROCALTROL) 1.5 mcg ORAL - melatonin 9 mg tab(s) 9 mg ORAL AT BEDTIME pyridoxine (vitamin B6) 50 mg tab(s) (VITAMIN B6) 50 mg ORAL DAILY vitamin A 10,000 Units cap(s) (AQUASOL A) 10,000 Units ORAL DAILY cholecalciferol 5,000 Units tab(s) (VITAMIN D3) 5,000 Units ORAL/FEEDING TUBE DAILY clobetasol topical ointment 0.05% (TEMOVATE) TOPICAL BID diazePAM 2.5 mg injection (VALIUM) 2.5 mg INTRAVENOUS q 12 H PRN fentaNYL 50 mcg/mL 25 mcg injection (SUBLIMAZE) 25 mcg INTRAVENOUS DAILY PRN fentaNYL 50 mcg/mL 50 mcg injection (SUBLIMAZE) 50 mcg INTRAVENOUS DAILY PRN ondansetron (PF) 4 mg injection (ZOFRAN) 4 mg INTRAVENOUS q 6 H PRN oxyCODONE IR 15 mg tab(s) (ROXICODONE) 15 mg ORAL/FEEDING TUBE q 4 H PRN dextrose 15 gram/32 mL 15 g (TRUEPLUS) 15 g ORAL PRN Or glucagon 1 mg injection 1 mg INTRAMUSCULAR PRN Or dextrose 10% iv bolus 12.5 g INTRAVENOUS PRN insulin lispro injection (rapid acting) (ADMElog) SUBCUTANEOUS w MEALS insulin lispro injection (rapid acting) (ADMElog) SUBCUTANEOUS AT BEDTIME ALLERGIES: Gabapentin and Trazodone PHYSICAL EXAM: BP 120/74 Pulse 104 Temp 37 ?C (98.6 ?F) (Oral) Resp 18 Ht 175.3 cm (5' 9) Wt 125.6 kg (276 lb 14.4 oz) SpO2 100% BMI 40.89 kg/m? No intake or output data in the 24 hours ending 05/31/25 1320 Constitutional:No acute distress, awake, alert and responsive Cardiovascular:Regular rate and rhythm 1+ BLE edema Respiratory:Normal respiratory effort on RA Abdomen:Soft, non-tender, non-distended Psychiatric: Alert and oriented x self, place, time, and setting Normal mood/affect Vascular Access: Hemodialysis catheter location: Right Tunneled internal jugular. Exit site demonstrates: normal findings Lines, Drains, and Airways Line Duration Dialysis / Apheresis Double Lumen 04/29/25 1005 [facility] Tunneled Right Internal Jugular 32 days Peripheral 05/31/25 0223 [facility] Short Left Forearm 20 Gauge <1 day Labs: Recent Labs 05/31/25221 WBC 6.64 HB 8.2* HCT 26.1* PLT 171 INR 1.7* NA 142 K 4.6 CHLOR 101 CO2 21* ANION 20* BUN 45* CREAT 8.92* GLUC 89 CA 8.2* MG 2.5* Recent Labs 05/31/25221 TPROT 7.6 ALB 4.0 ALT 11 AST 29 ALKPHOS 147* TBILI 0.4 LACT 1.8 ASSESSMENT: Mr. 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 Patient underwent pacemaker placement during his most recent hospitalization he is back for concern for groin wound. Nephrology consulted for ESR management. 1.ESRD -Etiology: HTN Renal Biopsy 2005 for renal failure of undetermined etiology. 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 using an angioplasty balloon per IR iElectrolytes:-stable for ESRD iAcid base-metabolic acidosis, mild iVolume status:hypervolemia iAnemia: -Multiple mechanisms, Renal anemia, and below goal, on weekly aranesp, resume if LOS>7 days or Hgb<8 iBone Mineral Disease: -Calcitriol 1.5mcg TIW, Sensipar 30mg daily, Revela 800mg TID with meals -PTH 578--> 181 PLAN: - HD Wed per MWF plan for 4.5hr session - resume calcitriol and sesnipar - renvela with meals Standard ESRD recommendations and precautions: - Strict IANDOs and Daily weight - Consider a Potassium restricted (2g/day) Diet for HD patients - Fluid restriction < 1 L - Start renal multivitamin to replace water-soluble vitamins lost during dialysis - Avoid Lovenox, Morphine, K-containing IVF, Mg- or Phos- containing enemas Consent for DRYWALL SANDER: ESRD Please DO NOT schedule patient for a nephrology follow up appointment. Kidney care will be provided by the primary data warehousing engineer at their dialysis unit upon hospital discharge. Camilo Norton PA-C Department of Kidney Medicine [facility] May 31, 2025 1:20 PM PAGER # [phone] Disclosures: Parts of the current progress note may have been copied from a previous note. FOR AFTER HOUR CONCERNS BETWEEN 5PM - 7AM CONTACT ON-CALL NEPHROLOGY FELLOW [phone] [facility] Observed: 5 1:04 PM Status: F Source: [facility] Non-Invasive Vascular [facility] J35 Lower Extremity Arterial Duplex for Pseudoaneurysm Bilateral/Complete Date of service/time: 05/31/2025 1:04:16 PM Name: ELIA WESTON Date of : 1980 Age: 45 years Gender: M Clinical Indication Hematoma following a procedure. TECHNIQUE -------- An arterial duplex ultrasound examination was performed, including grayscale imaging and color Doppler and spectral Doppler examination of the below mentioned arteries. FINDINGS -------- RIGHT SIDE External iliac artery distal : PSV: 79 cm/s. EDV: 18 cm/s. Monophasic, low resistive waveform. Common femoral artery : PSV: 78 cm/s. EDV: 17 cm/s. Monophasic, low resistive waveform. Profunda femoral artery proximal : PSV: 70 cm/s. EDV: 11 cm/s. Monophasic, low resistive waveform. Profunda femoral artery proximal : PSV: 101 cm/s. EDV: 15 cm/s. Monophasic, low resistive waveform. External iliac vein: Doppler: normal flow. Common femoral vein: Doppler: normal flow. Femoral vein: Doppler: normal flow. LEFT SIDE External iliac artery distal : PSV: 89 cm/s. EDV: 19 cm/s. Monophasic, low resistive waveform. Common femoral artery : PSV: 85 cm/s. EDV: 27 cm/s. Monophasic, low resistive waveform. Profunda femoral artery proximal : PSV: 60 cm/s. EDV: 16 cm/s. Monophasic, low resistive waveform. Superficial femoral artery proximal : PSV: 115 cm/s. EDV: 25 cm/s. Monophasic, low resistive waveform. External iliac vein: Doppler: normal flow. Compression: normal. Common femoral vein: Doppler: normal flow. Compression: normal. Femoral vein: Doppler: normal flow. Compression: normal. IMPRESSION Technically difficult exam due to patient positioning and patient body habitus. RIGHT SIDE Negative for pseudoaneurysm, arteriovenous fistula and hematoma. Unable to compress due to patient pain tolerance, normal respirophasic flow without filling defects noted. Known occluded right superficial femoral artery to femoral vein arteriovenous graft from study done 04/21/2024. LEFT SIDE Negative for pseudoaneurysm, deep vein thrombosis, hematoma and arteriovenous fistula. Technologist: Cici Hernandez T Ordering physician: MARCELO GRIFFITH Interpreting physician: Gilbert Clay MD Final CC [employer] [facility] Image : [id number] See Link below for Image HISTORY PHYSICAL Observed: 05/31/2025 9:41 AM Status: COMPLETED Source: [facility] HNO ID: [id number] Author: RIVAS SOLITARIO MD Service: General Internal Medicine Author Type: Physician Type: H&P Filed: 05/31/2025 20:42 Note Text: DEPARTMENT OF HOSPITAL MEDICINE HISTORY AND PHYSICAL EXAM SERVICE DATE: 05/31/2025 SERVICE TIME: 9:41 AM Primary Care Physician: No primary care provider on file. NIGHT AND WEEKEND COVERAGE: [facility] COVERAGE: Days: [phone], please page [phone] for patient issues. Nights: [phone], please page Team Jeffrey B; overnight/admitting pager [phone] Subjective CHIEF COMPLAINT: Left groin mass HPI: Mr. Elia Weston, a 45-year-old male with ESRD on IHD (), HTN, SVC syndrome and brachiocephalic chronic occlusive disease c/b chronic chest wall and abdominal varices + venous wounds, jugular vein occlusion, CAD s/p CABG, Sev MS s/p mechanical mitral valve replacement w/ MAZE and RADHA closure (2020), Afib on warfarin, 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 Patient was recently admitted 04/20 - 05/27 for acute bleeding from chronic chest wall wounds complicated by anemia, elevated INR, and intermittent hypotension. During the admission, he required transfusions, correction of coagulopathy, and treatment for suspected soft tissue infection. He underwent right NRM and vein venoplasty and had a leadless pacemaker placed via the left femoral vein on 05/23. Warfarin therapy was carefully managed with fluctuations in INR, the patient was discharged stable on anticoagulation with close follow-up planned. The patient has been doing well since discharge. However on Monday 05/28 while going up the stairs, he misjudged a step and landed on his left knee. Since then he has experienced pain in the left knee and right holley. Around the same time, he noticed a painful, tender mass on the left thigh at the site of his recent pacemaker insertion. The patient denies any head injury from the fall. He denies any ulcerations, wound, or discharge from the new mass. Patient denies fevers, chills, tingling, weakness, or other neurological symptoms. Patient denies N/V/D, lightheadedness, dizziness, chest pain, shortness of breath, palpitations, or any drainage from his chest wounds. However, due to the pain and discomfort from the mass and left knee pain, he has had difficulty walking and has been avoiding walking. The patient first noticed the mass on Friday night but is unsure if it appeared immediately after the fall and was present before hand. He missed his scheduled dialysis yesterday because the pain from the mass prevented him from walking. He continues to care for his chest wounds at home by changing dressings daily as instructed. Patient is currently taking warfarin 5 mg once daily at night as prescribed at discharge. In the ED, patient tachycardic HR 100s-110s, SBP 110s-120s, afebrile, satting at 95-100% on RA. Labs pertinent for BUN 45, Cr 8.9, alk phos 147, bicarb 21, AG 20, lactate 1.8, CRP 3.8. WBC 6.6, Hgb 8.2, platelets 171, PT/INR 1.7. CXR with slightly increased hazy interstitial opacities likely pulmonary edema. CTA of lower extremities without evidence of femoral pseudoaneurysm, no significant focal stenosis of pelvis vasculature bilaterally. Patient received 25 mcg of fentanyl for pain. PAST MEDICAL HISTORY Diagnosis Date Anemia of chronic disorder Anuria Atrial fibrillation (HCC) 12/02/2018 on Coumadin and Amiodarone BMI 40.0-44.9, adult ([facility]) ESRD (end stage renal disease) on dialysis ([facility]) 2005 ESRD from HTN Dialysis M,W,[facility] [phone] Essential hypertension, benign 1998 EKG 09/30 NL. Hearing loss of both ears History of mitral valve stenosis Hx of bacterial endocarditis 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 due to end stage renal disease on dialysis ([facility]) Kidney disease 2005 ESRD due to HTN; on IHD since 2005 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 and scoliosis h/o this 3 y. Dx by xray. Mechanical complication of arteriovenous fistula surgically created ([facility]) Mechanical complication of dialysis catheter ([facility]) Mitral valve disease Morbid obesity ([facility]) MS (mitral stenosis) 10/08/2018 Transesophageal US YEIMY on CPAP Paroxysmal atrial fibrillation ([facility]) PE (pulmonary thromboembolism) ([facility]) Pelvic mass Pseudoaneurysm of AV hemodialysis fistula (HCC) Wound of right side of back from friction/rubbing of jacket, goes to wound care center in [place] PAST SURGICAL HISTORY Procedure Laterality Date ARTERIOVENOUS FISTULA Left 08/29/2010 CAPSULE ENDOSCOPY 07/01/2023 CARDIOVERSION-ELECTIVE N/A 12/03/2018 200 joules synchronized - successful COLONOSCOPY 07/01/2023 EGD 06/27/2023 HERNIA REPAIR HX PAST SURGICAL HISTORY OF 08/29/2010 dialysis fistula left arm PAST SURGICAL HISTORY OF Right 03/2019 Right leg femoral vein to superficial femoral artery loop graft mid thigh REPAIR CLEFT LIP RMVL LEANN CVC W/O SUBQ PORT/TOBACCO PREVENTION HEALTH EDUCATOR 01/17/2013 SHX CARDIAC RADIOFREQUENCY ABLATION 08/21/2021 s/p Maze procedure SHX MITRAL VALVE REPLACEMENT 08/21/2021 FAMILY HISTORY Adopted: Yes Problem Relation Age of Onset None Mother None Father Aneurysm No Family History SOCIAL HISTORY[1] PRIOR TO ADMISSION MEDICATIONS: Prior to Admission Medications Prescriptions Last Dose Informant Patient Reported? Taking? B Complex-Vitamin C-Folic Acid (JOHNSON-BRENDA) 0.8 mg tab Yes No Sig: Take 1 tablet by mouth once daily. Cinacalcet HCl (SENSIPAR) 30 mg tablet No No Sig: Take 1 tablet by mouth once daily. Darbepoetin Osito In Polysorbat (ARANESP) 60 mcg/0.3 mL syrg No No Sig: Inject 0.3 mL subcutaneously every Friday. ascorbic acid 500 mg chew No No Sig: Take 1 tablet by mouth once daily. aspirin 81 mg chewable tablet Yes No Sig: Take 81 mg by mouth. bisacodyl EC (DULCOLAX) 5 mg EC tablet No No Sig: Take 2 tablets by mouth two times a day. busPIRone (BUSPAR) 5 mg tablet No No Sig: Take 1 tablet by mouth once daily. calcitriol (ROCALTROL) 0.5 mcg capsule No No Sig: Take 3 capsules by mouth every Friday, Friday, and Friday. melatonin 3 mg tablet No No Sig: Take 3 tablets by mouth daily at bedtime. midodrine (PROAMATINE) 10 mg tablet No No Sig: Take 2 tablets by mouth every 8 hours. oxyCODONE IR (ROXICODONE) 10 mg tab Yes No Sig: Take 10 mg by mouth every 8 hours as needed for pain. polyethylene glycol 3350 (MIRALAX) 17 gram packet No No Sig: Take 1 Packet by mouth once daily. Dissolve dose in 4 - 8 ounces of liquid and take as directed. pyridoxine, vitamin B6, (VITAMIN B6) 50 mg tablet No No Sig: Take 1 tablet by mouth once daily. senna (SENOKOT) 8.6 mg tab No No Si tablets by ORAL/FEEDING TUBE route two times a day for 15 days. sevelamer carbonate (RENVELA) 800 mg tablet No No Sig: Take 1 tablet by mouth three times a day with meals. vitamin A (AQUASOL A) 10,000 unit capsule No No Sig: Take 1 capsule by mouth once daily. warfarin (COUMADIN) 5 mg tablet No No Sig: Take 1 tablet by mouth once daily. Facility-Administered Medications: None ALLERGIES Allergen Reactions Gabapentin Unknown, Other: See Comments Trazodone Other: See Comments Fidgety REVIEW OF SYSTEM: PAIN ASSESSMENT: See HPI GENERAL: No weight loss, malaise or fevers HEENT: Negative for frequent or significant headaches, No changes in hearing or vision, no nose bleeds or other nasal problems NECK: Negative for lumps, goiter, pain and significant neck swelling RESPIRATORY: Negative for cough, hemoptysis, wheezing, COPD, dyspnea or shortness of breath CARDIOVASCULAR: Negative for chest pain, leg swelling, hypertension, CHF or palpitations GI: No nausea, vomiting, or diarrhea MUSCULOSKELETAL: See HPI SKIN: See HPI HEMATOLOGY/LYMPHOLOGY: Negative for prolonged bleeding, bruising easily or swollen nodes ENDOCRINE: Negative for cold or heat intolerance, polyuria, polydipsia and goiter NEURO: No history of headaches, syncope, paralysis, seizures or tremors Objective PHYSICAL EXAM: BP 113/58 Pulse 104 Temp (Src) 98.7 (Oral) Resp 20 Ht 5' 9 (1.75m) Wt 276 lb 14.4 oz (125.6kg) SpO2 99% BMI 40.87 kg/(m2). O2 Therapy: Room Air Physical Exam Performed: Physical Exam Constitutional: General: He is not in acute distress. Appearance: Normal appearance. He is obese. He is not ill-appearing. HENT: Head: Normocephalic and atraumatic. Nose: Nose normal. Mouth/Throat: Mouth: Mucous membranes are moist. Pharynx: No oropharyngeal exudate. Eyes: General: Right eye: No discharge. Left eye: No discharge. Extraocular Movements: Extraocular movements intact. Conjunctiva/sclera: Conjunctivae normal. Pupils: Pupils are equal, round, and reactive to light. Cardiovascular: Rate and Rhythm: Normal rate. Pulses: Normal pulses. Heart sounds: Normal heart sounds. No murmur heard. No friction rub. No gallop. Pulmonary: Effort: Pulmonary effort is normal. No respiratory distress. Breath sounds: Normal breath sounds. No stridor. No wheezing, rhonchi or rales. Abdominal: General: Abdomen is flat. Bowel sounds are normal. There is no distension. Palpations: Abdomen is soft. There is no mass. Tenderness: There is no abdominal tenderness. There is no guarding or rebound. Hernia: No hernia is present. Musculoskeletal: General: Tenderness and signs of injury present. No swelling or deformity. Cervical back: Normal range of motion and neck supple. Right lower leg: No edema. Left lower leg: No edema. Comments: Palpable firm, tender mass over the medial left thigh, non-pulsatile, without fluctuance, erythema, warmth, or drainage. No skin breakdown. Distal pulses intact; no sensory or motor deficits. Decreased ROM of the left knee due to pain. Remainder of exam limited due to pain. Skin: General: Skin is warm. Coloration: Skin is not jaundiced or pale. Findings: No erythema. Neurological: General: No focal deficit present. Mental Status: He is alert and oriented to person, place, and time. Cranial Nerves: No cranial nerve deficit. Sensory: No sensory deficit. Motor: No weakness. Psychiatric: Mood and Affect: Mood normal. Behavior: Behavior normal. Thought Content: Thought content normal. Lines, Drains, and Airways Line Duration Dialysis / Apheresis Double Lumen 04/29/25 1005 [facility] Tunneled Right Internal Jugular 31 days Peripheral 05/31/25 0223 [facility] Short Left Forearm 20 Gauge <1 day Pseudoaneurysm, active arterial bleed, AV fistula, arterial occlusion or thrombosis ruled out given unremarkable CTA of the lower extremities. Remains important to rule out hematoma, muscle injuries or seromas. Important to rule out DVT, soft tissue infection or abscesses DATA: Diagnostic tests reviewed for today's visit: Latest Ref Rng AND Units 05/26/2025 05/27/2025 05/31/2025 CMP Sodium 136 - 144 mmol/L 139 139 142 Potassium 3.7 - 5.1 mmol/L 4.6 4.5 4.6 Chloride 98 - 107 mmol/L 101 100 101 CO2 22 - 30 mmol/L 26 25 21 Glucose 74 - 99 mg/dL 75 86 89 BUN 9 - 24 mg/dL 12 20 45 Creatinine 0.73 - 1.22 mg/dL 4.03 5.24 8.92 EGFR >=60 mL/min/1.73m? 18 13 7 Protein, Total 6.3 - 8.0 g/dL 7.3 7.1 7.6 Albumin 3.9 - 4.9 g/dL 3.6 3.7 4.0 Calcium 8.5 - 10.2 mg/dL 8.4 8.2 8.2 Bilirubin, Total 0.2 - 1.3 mg/dL 0.2 0.3 0.4 AST 14 - 40 U/L 25 27 29 ALT 10 - 54 U/L <5 5 11 Alkaline Phosphatase 38 - 113 U/L 144 144 147 Latest Ref Rng AND Units 05/26/2025 05/27/2025 05/31/2025 CBC WBC 3.70 - 11.00 k/uL 4.79 5.46 6.64 RBC 4.20 - 6.00 m/uL 2.78 2.73 2.80 Hemoglobin 13.0 - 17.0 g/dL 8.0 8.1 8.2 Hematocrit 39.0 - 51.0 % 26.2 25.7 26.1 MCV 80.0 - 100.0 fL 94.2 94.1 93.2 MCH 26.0 - 34.0 pg 28.8 29.7 29.3 MCHC 30.5 - 36.0 g/dL 30.5 31.5 31.4 RDW-CV 11.5 - 15.0 % 18.0 18.1 18.3 Platelet Count 150 - 400 k/uL 161 160 171 MPV 9.0 - 12.7 fL 11.0 10.6 10.9 Baso% % 0.6 Abs Neut (ANC) 1.45 - 7.50 k/uL 4.26 Abs Lymph 1.00 - 4.00 k/uL 0.94 Abs Shelby <0.87 k/uL 1.15 Abs Eosin <0.46 k/uL 0.23 Abs Baso <0.11 k/uL 0.04 NRBC /100 WBC 0.0 Recent Labs 05/31/25 0222 INR 1.7* ASSESSMENT AND PLAN: Elia Weston, a 45-year-old male with ESRD on IHD (MWF), HTN, 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 #Left medial thigh mass Patient with recent leadless pacemaker placement via the left femoral vein, now presents with a painful left thigh mass. CT of the lower extremities was performed and is unremarkable, ruling out pseudoaneurysm, active arterial bleed, AV fistula, arterial occlusion or thrombosis. This is reassuring given his recent invasive vascular procedure and anticoagulation status. Despite these findings, important to rule out hematoma which is plausible given the trauma, anticoagulation, and femoral venous access history. Other potential causes include muscle injury or strain, seroma formation post procedurally. Additionally given his ESRD and history of chronic wounds with intermittent infection, DVT and soft tissue infection or abscess must be carefully considered. Absence of systemic signs make abscess less likely. He is anticoagulation with warfarin fluctuating INR, and recent fall increases the risk of bleeding complications such as hematoma formation. Plan - Ultrasound to evaluate for soft tissue #Fall Patient experienced a fall going up the stairs, falling is likely mechanical. Less likely to be due to true syncope or seizure disorder. Patient has multiple chronic conditions that predispose him to falls including chronic hypertension that is managed with midodrine, ESRD on dialysis, anemia and overall deconditioning from prolonged hospitalization. There is currently no evidence of head trauma or neurologic deficits. Plan - Left knee XR - PT/OT assessment - Evaluate orthostatic vitals - Tylenol 650 mg every 6 as needed and oxycodone 15 mg p.o. every 4 as needed - Fall precautions #Severe mitral stenosis s/p MVR On-X , posterior mitral annulus patch #CAD s/p CABG #pAF on warfarin on warfarin s/p cryomaze, RADHA ligation 08/21/21 #Erratic INR #Second-degree AV block, Mobitz type I s/p leadless pacemaker 05/23 - Last TTE 05/06/25 EF 60%, LV hypertrophy, normal right ventricle, trace tricuspid valve regurg, trace pulmonic valve regurg. - During prior admission, patient presented with self supratherapeutic INR and anemia requiring transfusion. Warfarin was held, and after correction with blood products and Vit K, INR became subtherapeutic. Patient was started on a heparin drip and resumed on warfarin, but INR remained labile, requiring frequent adjustments. In the days leading up to discharge, heparin was restarted under a stroke protocol with gradual INR stabilization. Patient was discharged on warfarin 5 mg with the plan of close outpatient follow up in warfarin clinic. - On recent admission, patient had multiple episodes of bradycardia with associated hypotension, EKGs showed sinus rhythm with second-degree AV block, Mobitz type I. Patient underwent leadless pacemaker with EP (05/23), no reported complications. 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 Previous imaging showed no drainable collection but extensive venous collaterals due to central. History notable for repeated TDC placements, with bilateral subclavian and brachiocephalic vein occlusions. 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 Etiology of nonhealing ulcer was attributed to ischemic vasculopathy in the setting of ESRD/hypertension/vasculopathy/malnutrition. - Previous workup revealed severe Vitamin A, B1, C, D and Iron deficiens. Previously evaluated by plastics with no recommended surgical intervention. Plan - Previously recommended the following - Vitamin D supplement 5000 units - Ascorbic acid 500mg/day - Vit B6 50 mg/day - Vitamin A 10,000 units/day - Wound care consult - Chest wound dressings to be changed daily - Cautious fluid resuscitation iso previous history of bleeding on ESRD on HD # ESRD on HD via right TDC (MWF) # Secondary hyperparathyroidism # Anemia - Patient missed dialysis session 9/1 due to left LE pain. Patient anuric at baseline per patient. Previous PTH elevated 181, Ca 8.2 low, Na 142, K 4.6, BUN 45, Cr 8.9. Patient has anemia of chronic disease, on weekly aranesp. Patient also on calcitriol, Sensipar, Renvela. Patient has history of low blood pressure, SBP 90s, intermittently responsive to fluids, patient on midodrine 20 mg 3 times daily. -Hgb baseline 9-. Plan - Continue MWF HD schedule - Continue calcitriol MWF - Continue weekly Aranesp - Next IHD 06/01 - Continue Sensipar, Renvela with meals - Continue home midodrine - Monitor I/Os and daily weights - Fluid restriction < 1L - Avoid Lovenox, morphine, K-containing IVF, Mg- or Phos-containing enemas # Constipation -Continue Dulcolax twice daily -Continue MiraLAX as once daily -Continue senna 17.2 mg twice daily #Adjustment disorder? #Low mood Continue buspirone #Code status -full # Diet -renal # VTE PPx -warfarin # Dispo Planning -TBD Morbid Obesity Class 3 Medication Reconciliation: Completed Medication and Non-Pharmacologic VTE Prophylaxis/Anticoagulants VTE Prophylaxis: VTE prophylaxis appropriate Disposition: Home Plan communicated to: Patient and nursing SIGNATURE: Pascale Swartz MD PATIENT NAME: Elia Weston DATE: May 31, 2025 TIME: 9:41 AM ATTENDING PHYSICIAN: Patient seen and evaluated today Mendoza elements of history and physical examination of the patient were confirmed. The assessment and plan were formulated and discussed with the team on Rounds. I reviewed the resident's note, examined the patient and agree with the documented findings and plan of care. 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 Rivas Solitario MD [facility] [phone] [1] Social History Tobacco Use Smoking status: Never Smokeless tobacco: Never Vaping Use Vaping status: Never Used Substance Use Topics Alcohol use: No Drug use: No NURSING PROG Observed: 05/31/2025 9:35 AM Status: COMPLETED Source: [facility] HNO ID: [id number] Author: ROCIO AUGUSTE RN Service: Nursing Author Type: Registered Nurse Type: Nursing Progress Note Filed: 05/31/2025 09:35 Note Text: Transfer Note: PATIENT NAME: Elia Weston Patient Location: [id number] Room: E020-17 Patient transferred into room/unit E20-17 in stable condition. Actions taken: No futher actions taken at this time. Will continue to monitor and check with patient. Patient belongings with patient ED NOTE Observed: 05/31/2025 8:41 AM Status: COMPLETED Source: [facility] HNO ID: [id number] Author: RASHID MARTIN RN Service: ? Author Type: Registered Nurse Type: ED Notes Filed: 05/31/2025 08:42 Note Text: MD contacted regarding pt requesting pain medications. ED NOTE Observed: 05/31/2025 8:41 AM Status: COMPLETED Source: [facility] HNO ID: [id number] Author: RASHID MARTIN RN Service: ? Author Type: Registered Nurse Type: ED Notes Filed: 05/31/2025 08:41 Note Text: E20 contacted x2; reports bed is not clean ED NOTE Observed: 05/31/2025 8:28 AM Status: COMPLETED Source: [facility] HNO ID: [id number] Author: RASHID MARTIN RN Service: ? Author Type: Registered Nurse Type: ED Notes Filed: 05/31/2025 08:28 Note Text: Pt's updated on pt's plan of care. ED NOTE Observed: 05/31/2025 8:03 AM Status: COMPLETED Source: [facility] HNO ID: [id number] Author: RASHID MARTIN RN Service: ? Author Type: Registered Nurse Type: ED Notes Filed: 05/31/2025 08:04 Note Text: Attempt to contact E20 IP director of search engine marketing x1. ED NOTE Observed: 05/31/2025 7:09 AM Status: COMPLETED Source: [facility] HNO ID: [id number] Author: HIMANSHU GUSTAFSON MD Service: Emergency Medicine Author Type: Resident Type: ED Notes Filed: 05/31/2025 16:21 Note Text: Patient was signed out to me 7:08 AM Briefly, 45 year old male with a PMHx significant for ESRD, pacemaker, HTN for presenting to the ED for mass in L groin. Site less concerning for infection, likely hematoma. CTA LE negative. Missed dialysis yesterday. Pending at the time of sign out: - transfer to floor ED Course as of 05/31/25 1621 Others' Documentation FriMay 31, 2025 0245 CBC + DIFF(!): WBC 6.64 RBC 2.80(!) Hemoglobin 8.2(!) Hematocrit 26.1(!) MCV 93.2 MCH 29.3 MCHC 31.4 RDW-CV 18.3(!) Platelet Count 171 MPV 10.9 Neut% 64.1 Abs Neut (ANC) 4.26 Lymph% 14.2 Abs Lymph 0.94(!) Shelby% 17.3 Abs Shelby 1.15(!) Eosin% 3.5 Abs Eosin 0.23 Baso% 0.6 Abs Baso 0.04 Immature Gran % 0.3 IMMATURE GRANS (ABS) <0.03 NRBC 0.0 Absolute nRBC <0.01 DTYPE Auto Stable anemia w/o leukocytosis, leukopenia, thrombocytopenia [JM] 0246 Prothrombin Time(!): PT Sec 17.9(!) PT INR 1.7(!) Slightly subtherapeutic [JM] 0257 CRP(!): 3.8 Stable CRP [JM] 0257 COMP METABOLIC PANEL (BMP+LFT)(!): Protein, Total 7.6 Albumin 4.0 Calcium 8.2(!) Bilirubin, Total 0.4 Alkaline Phosphatase 147(!) AST 29 ALT 11 Glucose 89 BUN 45(!) Creatinine 8.92(!) Sodium 142 Potassium 4.6 Chloride 101 CO2 21(!) Anion Gap 20(!) eGFR 7(!) No hyperkalemia, significant electrolyte derangment. Elevated BUN and Cr consistent with missed dialysis session. No acute hepatobiliary pathology [] 0257 Lactate: 1.8 No hypoperfusion [] 0648 Discussed with cardiology that stated with reassuring CTA, low suspicion of post-procedural dysfunction [JM] ED Course User Index [] Ab Bishop MD Clinical Impressions as of 05/31/25 1621 ESRD (end stage renal disease) (HCC) Pain of left lower extremity Tachycardia Under my care: The patient remained hemodynamically stable and required no acute interventions. Fentanyl was ordered for pain control. Patient was transferred to medicine floor. ED NOTE Observed: 05/31/2025 6:59 AM Status: COMPLETED Source: [facility] HNO ID: [id number] Author: DYLAN CHIN MD Service: Emergency Medicine Author Type: Physician Type: ED Notes Filed: 05/31/2025 07:00 Note Text: ED Attending Continuation of Care Note May 31, 2025 6:59 AM Elia Javier Weston was endorsed to me by Dr. Griffith. The patient initially presented to the ED for: L groin concern for infection. Signout note reviewed Missed dialysis CTA LLE neg Admit to GIM Suspect hematoma, no abx at this time Dylan Chin MD ED NOTE Observed: 05/31/2025 4:20 AM Status: COMPLETED Source: [facility] HNO ID: [id number] Author: MARINO PIMENTEL RN Service: ? Author Type: Registered Nurse Type: ED Notes Filed: 05/31/2025 04:21 Note Text: This RN updated patient spouse regarding patient plan of care. No further questions at this time. CTA LOWER EXTREM W IVCON Observed: 05/31 3:38 AM Status: F Source: [facility] * * *Final Report* * * DATE OF EXAM: May 31 2025 3:38AM [facility] [id number] - CTA LOWER EXTREM W IVCON / PROCEDURE REASON: Recent pacemaker placement, concern for potential LLE pseudoaneurysm. Notable ma * * * * Physician Interpretation * * * * CT ANGIOGRAM OF THE BILATERAL LOWER EXTREMITIES HISTORY: 45 years old Male with concern for left pseudoaneurysm status post 05/23/2025 pacemaker placement. Patient presenting to the ED with complaints of left groin palpable mass. TECHNIQUE: High-resolution contrast-enhanced helical CT of the bilateral lower extremities was performed, timed to the arterial phase. 3-D processing was performed by the physician on an independent work station, with MIP and volume-rendering techniques. Total of 300 ml of Omnipaque 350 was injected IV during the examination. The study was performed without oral contrast. The patient tolerated the injection without complications. Dose-Length Product (DLP): 4394 mGy*cm. CT Dose Reduction Employed: Automated exposure control(AEC) and iterative recon COMPARISON: CT femur 09/15/2014. RESULTS: Limitations: Limited exam due to contrast phase timing likely secondary exuberant abdominal wall venous collaterals. Diffuse body wall collaterals. RIGHT PELVIS VASCULATURE: -Common Iliac Artery: Diffuse atherosclerotic change without significant focal stenosis. -External Iliac Artery: Diffuse atherosclerotic change without significant focal stenosis. -Internal Iliac Artery: Diffuse atherosclerotic change without significant focal stenosis. -Common Femoral Artery: Diffuse atherosclerotic change without significant focal stenosis. -Profunda Femoris Artery: Diffuse atherosclerotic change without significant focal stenosis. -Superficial Femoral Artery: Diffuse atherosclerotic change without significant focal stenosis. -Popliteal Artery: Diffuse atherosclerotic change without significant focal stenosis. -Heavy calcifications beyond the trifurcation with poor contrast phase timing; unable to assess for patency of the anterior tibial, tibioperoneal trunk, posterior tibial, peroneal, dorsalis pedis. LEFT PELVIS VASCULATURE: -Common Iliac Artery: Diffuse atherosclerotic change without significant focal stenosis. -External Iliac Artery: Diffuse atherosclerotic change without significant focal stenosis. -Internal Iliac Artery: Diffuse atherosclerotic change without significant focal stenosis. -Common Femoral Artery: Diffuse atherosclerotic change without significant focal stenosis. -Profunda Femoris Artery: Diffuse atherosclerotic change without significant focal stenosis. -Superficial Femoral Artery: Diffuse atherosclerotic change without significant focal stenosis. -Popliteal Artery: Diffuse atherosclerotic change without significant focal stenosis. -Heavy calcifications beyond the trifurcation with poor contrast phase timing; unable to assess for patency of the anterior tibial, tibioperoneal trunk, posterior tibial, peroneal, dorsalis pedis. Within the constraints of this exam, no evidence of a pseudoaneurysm. NONVASCULAR FINDINGS: GI tract: No dilation or wall thickening within the [id number]-ed-zgom. Lymph nodes: Borderline enlarged pelvic and inguinal nodes are similar to 04/22/2025 CT, For example 1.2 cm left pelvic sidewall node (6:37), 9 mm right pelvic sidewall node (6:33). 1.7 cm right common femoral node (6:85). Mesentery/Peritoneum: No ascites or mass. Retroperitoneum: No mass. Pelvis: Decompressed urinary bladder. Bones/Soft Tissues: Extensive soft tissue ossification the proximal right thigh with associated subchondral resorption of the pubic symphysis is similar to 2014, and consistent with renal osteodystrophy. Additional bilateral sacroiliac erosions and subperiosteal resorption, most consistent with sequela of renal osteodystrophy. Localizer images: No additional findings. IMPRESSION: Suboptimal exam without evidence of a femoral pseudoaneurysm. Additional findings, as detailed. Residential Driver: AZAM Transcribe Date/Time: May 31 2025 3:38A Dictated by : USSAN GRIFFITH MD This examination was interpreted and the report reviewed and electronically signed by: HAIR SHARPE MD on May 31 2025 6:15AM EST [id number] LACTATE BLD-SCNC Collected: 2:22 AM Status: F Source: [facility] Order Comment: Specimen Type : BLOOD SPECIMEN Ordering Facility: [facility] Address: [address] [place] [address] TYPE CODE TESTS RESULT OUT OF RANGE REFERENCE UNITS LAB 09571-9(LOINC) Lactate Bld-sCnc 1.8 0.5-2.2 mmol/L Performed By: #### 28377-4 # ### [facility] CLIA [id number] [address] [place] [address] [place] COMP METAB 2000 PNL SERPL Collected: 2:22 AM Status: F Source: [facility] Order Comment: Specimen Type : BLOOD SPECIMEN Ordering Facility: [facility] Address: [address] [place] [address] TYPE CODE TESTS RESULT OUT OF RANGE REFERENCE UNITS LAB 2885-2(LOINC) Prot SerPl-mCnc 7.6 6.3-8.0 g/dL LAB 1751-7(LOINC) Albumin SerPl-mCnc 4.0 3.9-4.9 g/dL LAB 23604-1(LOINC) Calcium SerPl-mCnc 8.2 Low 8.5-10.2 mg/dL LAB 1975-2(LOINC) Bilirub SerPl-mCnc 0.4 0.2-1.3 mg/dL LAB 6768-6(LOINC) ALP SerPl-cCnc 147 High 38-113 U/L LAB 1920-8(LOINC) AST SerPl-cCnc 29 14-40 U/L LAB 1742-6(LOINC) ALT SerPl-cCnc 11 10-54 U/L LAB 2345-7(INC) Glucose SerPl-mCnc 89 74-99 mg/dL Result Comment: The [place] Diabetes Association (ADA) provides guidance for cutoff values for fasting glucose and random glucose. The ADA defines fasting as no caloric intake for at least 8 hours. Fasting plasma glucose results between 100 to 125 mg/dL indicate increased risk for diabetes (prediabetes). Fasting plasma glucose results greater than or equal to 126 mg/dL meet the criteria for diagnosis of diabetes. In the absence of unequivocal hyperglycemia, results should be confirmed by repeat testing. In a patient with classic symptoms of hyperglycemia or hyperglycemic crisis, random plasma glucose results greater than or equal to 200 mg/dL meet the criteria for diagnosis of diabetes. Reference: Standards of Medical Care in Diabetes 2016, [place] Diabetes Association. Diabetes Care. 2016.39(Suppl 1). LAB 3094-0(LOINC) BUN SerPl-mCnc 45 High 9-24 mg/dL LAB 2160-0(LOINC) Creat SerPl-mCnc 8.92 High 0.73-1.22 mg/dL LAB 2951-2(LOINC) Sodium SerPl-sCnc 142 136-144 mmol/L LAB 2823-3(LOINC) Potassium SerPl-sCnc 4.6 3.7-5.1 mmol/L LAB 2075-0(LOINC) Chloride SerPl-sCnc 101 98-107 mmol/L LAB 8-9(LOINC) CO2 SerPl-sCnc 21 Low 22-30 mmol/L LAB 45559-5(LOINC) Anion Gap SerPl-sCnc 20 High 8-15 mmol/L LAB 53654-6(LOINC) eGFRcr SerPlBld CKD-EPI 2020 7 Low >=60 mL/min/1. 73m??? Result Comment: Estimated Gl omerular Filtration Rate (eGFR) is calculated using the 2020 CKD-EPI creatinine equation. This equation utilizes serum creatinine, sex, and age as parameters. The creatinine assay has traceable calibration to isotope dilution-mass spectrometry. Refer to KDIGO guidelines for clinical interpretation. In patients with unstable renal function, e.g. those with acute kidney injury, the eGFR may not accurately reflect actual GFR. Performed By: #### 1987-, 1 9123-05, #### [facility] CLIA [id number] [address] [place] [address] [place] CRP SERPL-MCNC Collected: 05/31/2025 2:22 AM Status: F Source: [facility] Comment: Specimen Type : BLOOD SPECIMEN Ordering Facility: [facility] Address: [address] [place] [address] TYPE CODE TESTS RESULT OUT OF RANGE REFERENCE UNITS LAB 1988-01(LOINC) CRP SerPl-mCnc 3.8 High <0.9 mg/dL Performed By: #### 1988-01, 1 9123-05, #### [facility] CLIA [id number] [address] [place] [address] [place] MAGNESIUM SERPL-MCNC Collected: 05/31/2025 2:22 AM S tatus: F Source: [facility] Comment: Specimen Type : BLOOD SPECIMEN Ordering Facility: [facility] Address: [address] [place] [address] TYPE CODE TESTS RESULT OUT OF RANGE REFERENCE UNITS LAB (LOINC) Magnesium SerPl-mCnc 2.5 High 1.7-2.3 mg/dL Performed By: #### 1987-, 1 9123-05, #### [facility] CLIA [id number] [address] [place], [place] [id number] [place] PT PNL PPP Collected: 05/31/2025 2:22 AM Status: F Source: [facility] Order Comment: Specimen Type : BLOOD SPECIMEN Ordering Facility: [facility] Address: [address] [place] [address] TYPE CODE TESTS RESULT OUT OF RANGE REFERENCE UNITS LAB 5902-2(LOINC) Prothrombin time 17.9 High 9.7-13.0 sec LAB 6301-6(LOINC) INR PPP 1.7 High 0.9-1.3 Result Comment: Vitamin K An tagonist (VKA) Therapeutic Range: INR 2 to 3 (Target INR of 2.5) Note: For patients treated with VKA drugs, such as warfarin, the [place] College [employer]icians 2012 Guideline recommends a therapeutic INR range of 2 to 3 (target INR of 2.5). This recommendation includes high-risk patients with antiphospholipid syndrome with previous arterial or venous thromboembolism, current-generation mechanical or bioprosthetic aortic heart valve replacement. Note: Patients with mechanical aortic valve replacement and additional risk factors for thromboembolic events (atrial fibrillation, previous thromboembolism, LV dysfunction, hypercoagulable conditions) or an older generation mechanical AVR (i.e., ball in-Cage) or any mechanical MVR should have a INR therapeutic range of 2.5 to 3.5 (target INR of 3). Guyatt GH, et al. Chest 2012, 141:7S-47S Kevin RA, et al. JAC 2017, 70: 252-289 Performed By: #### 35498-6 # ### [facility] CLIA [id number] [address] [place] [address] [place] CBC W AUTO DIFF BLD Collected: 05/31/2025 2:[address] atus: F Source: [facility] Order Comment: Specimen Type : BLOOD SPECIMEN Ordering Facility: [facility] Address: [address] [place] [address] TYPE CODE TESTS RESULT OUT OF RANGE REFERENCE UNITS LAB 6690-2(LOINC) WBC # Bld Auto 6.64 3.70-11.00 k/uL LAB 789-8(LOINC) RBC # Bld Auto 2.80 Low 4.20-6.00 m/ uL LAB 718-7(LOINC) Hgb Bld-mCnc 8.2 Low 13.0-17.0 g/dL LAB 4544-3([facility]) Hct VFr Bld Auto 26.1 Low 39.0-51.0 % LAB 787-2([facility]) MCV RBC Auto 93.2 80.0-100.0 fL LAB 785-6([facility]) MCH RBC Qn Auto 29.3 26.0-34.0 p g LAB 786-4([facility]) MCHC RBC Auto-mCnc 31.4 30.5-36.0 g/dL LAB 83663-5([facility]) RDW RBC-Rto 18.3 High 11.5-15.0 % LAB 777-3([facility]) Platelet # Bld Auto 171 150-400 k/uL LAB 04905-7([facility]) PMV Bld Auto 10.9 9.0-12.7 fL LAB 770-8([facility]) Neutrophils/leuk NFr Bld Auto 64.1 % LAB 751-8([facility]) Neutrophils # Bld Auto 4.26 1.45-7.50 k/uL LAB 736-9([facility]) Lymphocytes/leuk NFr Bld Auto 14.2 % LAB 731-0([facility]) Lymphocytes # Bld Auto 0.94 Low 1.00-4.00 k/uL LAB 5905-5([facility]) Monocytes/leuk NFr Bld Auto 17.3 % LAB 742-7([facility]) Monocytes # Bld Auto 1.15 High <0.87 k/uL LAB 713-8([facility]) Eosinophil/leuk NFr Bld Auto 3.5 % LAB 711-2([facility]) Eosinophil # Bld Auto 0.23 <0.46 k/uL LAB 706-2([facility]) Basophils/leuk NFr Bld Auto 0.6 % LAB 704-7([facility]) Basophils # Bld Auto 0.04 <0.11 k/uL LAB 70741-1([facility]) Imm Granulocytes/fely k NFr Bld Auto 0.3 % LAB 42023-5([facility]) Imm Granulocytes # Bld Auto <0.03 <0.10 k/uL LAB 82900-1([facility]) nRBC/100 WBC Bld-Rto 0.0 /100 WBC LAB 771-6(LOINC) nRBC # Bld Auto <0.01 <0.01 k/u L LAB 23752-0([facility]) Differential method Bld Auto Performed By: #### 88288-7 # ### [facility] CLIA [id number] [address] [place] [address] [facility] XR CHEST 1V FRONTAL PORT Observed: 05/31 2:20 AM Status: F Source: [facility] * * *Final Report* * * DATE OF EXAM: May 31 2025 2:20AM EGX 5376 - XR CHEST 1V FRONTAL PORT / PROCEDURE REASON: Shortness of breath * * * * Physician Interpretation * * * * EXAMINATION: CHEST RADIOGRAPH (PORTABLE SINGLE VIEW AP) Exam Date/Time: 05/31/2025 2:20 AM CLINICAL HISTORY: Shortness of breath MQ: XCPR_5 Comparison: CXR 05/24/2025 RESULT: Lines, tubes, and devices: Right central venous catheter tip in the right atrium, similar to prior. Leadless pacemaker. Left atrial appendage ligation clip. Mitral valve replacement. Lungs and pleura: Hazy interstitial opacities likely represent pulmonary edema, slightly increased. No new focal consolidation, pleural effusion, or pneumothorax. Cardiomediastinal silhouette: Stable cardiomediastinal silhouette. Other: Median sternotomy. IMPRESSION: Increased prominence of the pulmonary vasculature suggesting pulmonary edema. Residential Driver: PSCEun Transcribe Date/Time: May 31 2025 2:25A Dictated by : SUSAN GRIFFITH MD This examination was interpreted and the report reviewed and electronically signed by: HAIR SHARPE MD on May 31 2025 5:11AM EST [id number] PROGRESS Observed: 05/31/2025 2:19 AM Status: COMPLETED Source: [facility] HNO ID: [id number] Author: CLAIRE BOSE RT(R) Service: Radiology Author Type: Technologist Type: Progress Notes Filed: 05/31/2025 02:20 Note Text: Radiology Service Progress Note PATIENT NAME: Elia Weston DATE OF SERVICE: May 31, 2025 TIME: 2:20 AM PATIENT IDENTITY VERIFICATION COMPLETED USING TWO (2) IDENTIFIERS: Name and Date of confirmed by patient verbally. FALL SCREENING: Has the patient had 2 falls in the last year or 1 fall with injury or currently using an Ambulatory Assistive Device (Walker, Cane, Wheelchair, Crutches, etc.)? Emergency Room Patient: Screened in ED PATIENT GENDER DATA: Assigned male at PATIENT RELEVANT IMPLANT DATA REVIEWED: Not Applicable PATIENT PRESENTS WITH AN IMPLANTABLE OR ATTACHED EMBEDDED SOFTWARE ARCHITECT: No RADIOLOGY DEPARTMENT: General X-ray: Exam(s) Completed: Chest X-Ray PERIPHERAL IV DATA: Not applicable SIGNED BY: RT Erinn(R) May 31, 2025 2:20 AM ED PROV NOTE Observed: 05/31/2025 1:49 AM Status: COMPLETED Source: [facility] ID: [id number] Author: MARCELO GRIFFITH MD Service: Emergency Medicine Author Type: Physician Type: ED Provider Notes Filed: 06/01/2025 21:07 Note Text: ED Provider Note Patient Name: Elia Weston : 1980 SERVICE DATE: 05/31/25 History Patient presents with: Infection: Patient presents for cc of possible infection on left side of groin s/p pacemaker insertion 05/23/2025. Pt states he noticed a large hard mass last night. Pt denies drainage, redness, endorses tenderness AND pain is exacerbated while ambulating. Pt endorses nausea, denies any body aches, subjective fevers, chills, emesis or diarrhea. 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 Patient underwent pacemaker placement during his most recent hospitalization, and noted today he had a mass in the L groin area. He denies any associated warmth, drainage, redness or fevers. States that he was unable to go to dialysis today. Denies any associated CP, Shortness of Breath, abd pain, N/V/D. Chart review: Admitted 04/20/25-05/27/25 for bleeding from L chest wounds. He had supratherapeutic INR which he was given FFP for. During hospitalization patient had pacemaker placed on 05/23/25 for Mobitz Type 1. PAST MEDICAL HISTORY Diagnosis Date Anemia of chronic disorder Anuria Atrial fibrillation (HCC) 12/02/2018 on Coumadin and Amiodarone BMI 40.0-44.9, adult (HCC) ESRD (end stage renal disease) on dialysis (HCC) 2005 ESRD from HTN Dialysis M,W,[facility] [phone] Essential hypertension, benign 1998 EKG 09/30 NL. Hearing loss of both ears History of mitral valve stenosis Hx of bacterial endocarditis 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 due to end stage renal disease on dialysis (HCC) Kidney disease 2005 ESRD due to HTN; on IHD since 2005 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 and scoliosis h/o this 3 y. Dx by xray. Mechanical complication of arteriovenous fistula surgically created ([facility]) Mechanical complication of dialysis catheter ([facility]) Mitral valve disease Morbid obesity (HCC) MS (mitral stenosis) 10/08/2018 Transesophageal US YEIMY on CPAP Paroxysmal atrial fibrillation ([facility]) PE (pulmonary thromboembolism) ([facility]) Pelvic mass Pseudoaneurysm of AV hemodialysis fistula ([facility]) Wound of right side of back from friction/rubbing of jacket, goes to wound care center in [place] PAST SURGICAL HISTORY Procedure Laterality Date ARTERIOVENOUS FISTULA Left 08/29/2010 CAPSULE ENDOSCOPY 07/01/2023 CARDIOVERSION-ELECTIVE N/A 12/03/2018 200 joules synchronized - successful COLONOSCOPY 07/01/2023 EGD 06/27/2023 HERNIA REPAIR HX PAST SURGICAL HISTORY OF 08/29/2010 dialysis fistula left arm PAST SURGICAL HISTORY OF Right 03/2019 Right leg femoral vein to superficial femoral artery loop graft mid thigh REPAIR CLEFT LIP RMVL LEANN CVC W/O SUBQ PORT/TOBACCO PREVENTION HEALTH EDUCATOR 01/17/2013 SHX CARDIAC RADIOFREQUENCY ABLATION 08/21/2021 s/p Maze procedure SHX MITRAL VALVE REPLACEMENT 08/21/2021 FAMILY HISTORY Adopted: Yes Problem Relation Age of Onset None Mother None Father Aneurysm No Family History Social History[1] ALLERGIES Allergen Reactions Gabapentin Unknown, Other: See Comments Trazodone Other: See Comments Fidgety Review of Systems Physical Exam Vitals [05/31/25 0103] BP Pulse Temp Temp src Resp SpO2 Weight Height 121/80 (!) 108 37.1 ?C (98.7 ?F) Oral 18 99 % -- -- Physical Exam Vitals and nursing note reviewed. Constitutional: General: He is not in acute distress. Appearance: He is not ill-appearing. HENT: Head: Normocephalic and atraumatic. Right Ear: Tympanic membrane normal. Left Ear: Tympanic membrane normal. Nose: Nose normal. Mouth/Throat: Mouth: Mucous membranes are moist. Eyes: Conjunctiva/sclera: Conjunctivae normal. Cardiovascular: Rate and Rhythm: Normal rate and regular rhythm. Pulses: Normal pulses. Heart sounds: Normal heart sounds. Pulmonary: Breath sounds: Rales (bibasilar) present. Abdominal: General: There is no distension. Palpations: Abdomen is soft. Tenderness: There is no abdominal tenderness. Musculoskeletal: Right lower leg: No edema. Left lower leg: No edema. Comments: Firm mass in L groin extending down toward knee. Has small wound in groin without active drainage, warmth, erythema. Neurological: General: No focal deficit present. Mental Status: He is alert and oriented to person, place, and time. Diagnostic Testing ED Labs Ordered and Reviewed - No data to display Procedures ED Course / Clinical Impression ED Course as of 05/31/25 0659 Ab Bishop's Documentation FriMay 31, 2025 0245 CBC + DIFF(!): WBC 6.64 RBC 2.80(!) Hemoglobin 8.2(!) Hematocrit 26.1(!) MCV 93.2 MCH 29.3 MCHC 31.4 RDW-CV 18.3(!) Platelet Count 171 MPV 10.9 Neut% 64.1 Abs Neut (ANC) 4.26 Lymph% 14.2 Abs Lymph 0.94(!) Shelby% 17.3 Abs Shelby 1.15(!) Eosin% 3.5 Abs Eosin 0.23 Baso% 0.6 Abs Baso 0.04 Immature Gran % 0.3 IMMATURE GRANS (ABS) <0.03 NRBC 0.0 Absolute nRBC <0.01 DTYPE Auto Stable anemia w/o leukocytosis, leukopenia, thrombocytopenia 0246 Prothrombin Time(!): PT Sec 17.9(!) PT INR 1.7(!) Slightly subtherapeutic 0257 CRP(!): 3.8 Stable CRP 0257 COMP METABOLIC PANEL (BMP+LFT)(!): Protein, Total 7.6 Albumin 4.0 Calcium 8.2(!) Bilirubin, Total 0.4 Alkaline Phosphatase 147(!) AST 29 ALT 11 Glucose 89 BUN 45(!) Creatinine 8.92(!) Sodium 142 Potassium 4.6 Chloride 101 CO2 21(!) Anion Gap 20(!) eGFR 7(!) No hyperkalemia, significant electrolyte derangment. Elevated BUN and Cr consistent with missed dialysis session. No acute hepatobiliary pathology 0257 Lactate: 1.8 No hypoperfusion 0648 Discussed with cardiology that stated with reassuring CTA, low suspicion of post-procedural dysfunction Clinical Impressions as of 05/31/25 0659 ESRD (end stage renal disease) (HCC) Pain of left lower extremity Tachycardia MDM / Disposition / Plan 45-year-old male past medical history as noted above presenting today for concerns of left groin mass. Additionally patient did miss dialysis today. He was tachycardic on arrival, but otherwise hemodynamically stable. Pertinent physical exam findings as noted above. Patient did have a firm left-sided carinal mass with extension down towards the knee. No pulsatile feeling. Consistent with potential hematoma. However given recent procedure, concerns for potential pseudoaneurysm versus fistulization, so did opt to obtain CTA of the leg. Additionally blood work was obtained and interpreted as seen in ED course. Patient did have elevated BUN and creatinine on CMP, but no electrolyte abnormalities necessitating emergent dialysis. CBC without acute abnormality. PT/INR slightly subtherapeutic. Additionally patient does have slightly elevated CRP, which was obtained to assess for potential soft tissue infection. It is stable when compared to previous. CTA of the leg ultimately showed no acute findings. Favor LLE hematoma as etiology of patient's mass. As patient did miss dialysis yesterday, and received contrast he will require admission to hospital for dialysis and further evaluation. Did discuss with medicine quarterback, who requested cardiology evaluate patient's incision site to ensure no acute intervention required on their end. Discussed with cardiology, who stated based on reassuring CTA and our exam findings they do not suspect post-operative complication and feel he is appropriate for medicine admission. Discussed again with medicine team who accepted patient to their service. Signed-out to AM provider pending transport to floor. History and Record Review External record(s) reviewed: PDMP reviewed, prior inpatient record, PDMP reviewed and PDMP reviewed. Findings from review of inpatient records: See HPI Differential Diagnoses - ESRD is more likely for the following reason(s): suggested by HANDP - Hematoma is more likely for the following reason(s): suggested by HANDP - Pseudoaneurysm is less likely for the following reason(s): no evidence on imaging - Soft tissue infection is less likely for the following reason(s): HANDP not suggestive Management Management of the patient was discussed with:see ED course I performed an independent interpretation of the following:see ED course Re-evaluation vital signs in acceptable range and patient tolerating PO Ab Bishop MD Disposition The patient was admitted. Counseled patient regarding suspected diagnosis, radiology results and lab results. Admitted to Regular Nursing Floor. SIGNATURE: Ab Bishop MD Attending Note Attestation for: Resident I evaluated the patient and personally participated in the mendoza components. I agree with the resident's findings and plan as documented and have discussed the case and management of the patient's care with the resident. Attending note: HPI: Patient presenting with concern for left groin swelling. He had a procedure with left groin access done by cardiology for pacemaker placement on the of last month. He noticed over the last 24 hours some swelling inferior to this area on his left inner thigh. He is worried about possible infection he missed his dialysis as he was unable to get to his car today. He denies any drainage from the area his wound is still open although no purulent drainage from the area itself he has a patient on the right lower extremity that is not used currently denies any other symptoms including abdominal pain nausea or vomiting Physical exam: Patient does have some swelling inferior to his groin access site on the left side there is no surrounding erythema and mild tenderness is noted around it although does have symmetric edema in bilateral lower extremities which she reports is baseline MDM: Patient presenting with concern for left thigh swelling and pain. He is slightly tachycardic on arrival he did miss dialysis and last session was on Friday concern for possible electrolyte derangements will obtain CTA of his left lower extremity ensure there is no fistula versus other postsurgical complication will likely require admission Signature: Marcelo Griffith MD Date: 06/01/2025 Time: 9:06 PM AB BISHOP 05/31/25 0702 [1] Social History Tobacco Use Smoking status: Never Smokeless tobacco: Never Vaping Use Vaping status: Never Used Substance and Sexual Activity Alcohol use: No Drug use: No Sexual activity: Never MARCELO GRIFFITH 06/01/252106 NURSING PROG Observed: 05/27/2025 6:56 PM Status: COMPLETED Source: [facility] HNO ID: [id number] Author: JESUSITA QUINTERO RN Service: Nursing Author Type: Registered Nurse Type: Nursing Progress Note Filed: 05/27/2025 18:56 Note Text: Went over discharge instructions with patient. Patient verbalized understanding. IV and engine monitor removed. IV catheter intact upon removal. Patient to go home via private vehicle. Patient assisted to discharge lounge via wheelchair. NURSING PROG Observed: 05/27/2025 5:50 PM Status: COMPLETED Source: [facility] HNO ID: [id number] Author: JESUSITA QUINTERO RN Service: Nursing Author Type: Registered Nurse Type: Nursing Progress Note Filed: 05/27/2025 17:52 Note Text: Patient money ($602) collected from admin services and returned to him. The return of money was witnessed by RACHEL Lopez. Document added to chart showing signature of this nurse, RACHEL Lopez and patient confirming that money was returned to patient in full. THERAPY NT Observed: 05/27/2025 5:10 PM Status: COMPLETED Source: [facility] HNO ID: [id number] Author: LUCILLE MURPHY PT Service: Physical Therapy Author Type: Bicycle Subassembler Type: Therapy (PT/OT/Speech/Resp) Filed: 05/30/2025 07:02 Note Text: Attestation signed by Lucille Murphy PT at 05/30/2025 7:02 AM I reviewed and agree with the documentation corresponding to this therapy visit. SIGNATURE: Lucille Murphy PT DATE: May 30, 2025 TIME: 7:02 AM Physical Therapy Treatment Summary SERVICE DATE: 05/27/2025 SERVICE TIME: 1628 to 1707 ROOM: [place] [id number] PT 6 Clicks Score: 22 DISCHARGE RECOMMENDATIONS Home PT Anticipated Discharge Needs: Physical Assist at Home Physical Assist at Home for: Transfers, Cleaning, Laundry, Meals, Stairs, Safety, Self Care, Shopping, Transportation (+ PRN) Recommended Discharge Equipment: Cane ASSESSMENT Pt was able to ambulate with a cane. Pt requesting bedside delivery of cane, notified nsg and MD for prescription need and pt's request. Response to Therapy Interventions: Good Participation in Activities, Improved Tolerance for Activity PRECAUTIONS Fall Risk, Lines/Tubes/Drains CURRENT HOSPITAL COURSE admitted for pain and bleeding of chronic wounds Relevant Past Medical History: ESRD on HD, HTN, Afib s/p MV replacement (on coumadin), secondary hyperparathyroidism, vasculopathy with hx of SVC syndrome and brachiocephalic chronic occlusive disease, HLD, obesity, YEIMY HOME LIVING Patient Lives With: Family Assistance Available: Part-Time, 24-Hour Entry To Home: Stairs Number Of Stairs Into Home: 3 Number Of Stairs To Bed/Bath: 0 Equipment Owned: Cane, Walker- Wheeled, Hand Held Shower PRIOR FUNCTIONAL LEVEL Within Functional Limits 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 Has been sleeping in recliner 2/2 to pain. (+) driving SUBJECTIVE THERAPY DIAGNOSIS Reduced mobility-other, Muscle Weakness (generalized), General symptoms and signs-other TREATMENT INTERVENTIONS Gait Training (20188) Timed Code Treatment (minutes): 23 Skilled Treatment Time (minutes): 23 TRAINING AND EDUCATION PROVIDED Assistive Device Use, Benefits of In-Hospital Mobility, Expected Functional Level, Falls Prevention, Gait Pattern, Reduction of Deviations, Role of Physical Therapy, Transfers, Home Safety THERAPEUTIC SKILLS USED Cuing Visual, Cuing Tactile, Cuing Verbal, Cues for Sequencing/Proper Technique for Activity, Activity Dosing FUNCTIONAL STATUS Bed Mobility Supine To Sit: Stand By Assistance Scooting: Stand By Assistance Transfers Sit To Stand: Stand By Assistance Stand To Sit: Stand By Assistance Bed to Chair Stand By Assistance Bed To Chair Transfer Type: Stepping Bed To Chair Transfer Equipment: (IV pole) Gait Stand By Assistance Gait Device: Cane Gait Distance (feet): 45 Stairs GOALS Patient will demonstrate progress with functional mobility to allow safe discharge to home with available support and/or physical assistance. Rehab Potential: Good Progress Toward Goals: Progressing as expected ACUTE CARE TREATMENT PLAN PT Frequency: Per Next Session Date Treatment Interventions: Education, Self Care / Home Management, Energy Conservation Training, Joint Mobility, Strengthening, Functional Mobility Training, Balance Training, Neuromuscular Re-education Plan for Next Visit: Gait Training, Stair Training SIGNATURE: Artie Chi PTA PATIENT NAME: Elia Weston DATE: May 27, 2025 TIME: 5:10 PM CASE MANAGEM Observed: 05/27/2025 4:05 PM Status: COMPLETED Source: [facility] HNO ID: [id number] Author: JUVE BUCHANAN RN Service: Care Management Author Type: Registered Nurse Type: Care Mgt Progress Note Filed: 05/27/2025 16:08 Note Text: CARE MANAGEMENT DISCHARGE NOTE SERVICE DATE: May 27, 2025 SERVICE TIME: 4:06 PM Admission Date: 04/20/2025 LOS: 36 days Discharge Arrangement Discharge Arrangement: Home with Home Health Home Care: Nursing Services Arranged Medical Services: Skilled Home Health Care Type: Home Health Agency, Long-Term Caregiver Assessment Caregiver is ready, willing and able to meet the patient's needs as recommended by the inter-professional team: Yes Name of Caregiver: Spouse Transportation Arrangements Transportation Arrangements: Car Date of Trip: 05/27/25 Destination: Home Handoff Communication: Handoff to: Primary Care Physician Primary Care Physician Name/ Additional Information: DC today home with home care, SN for wound care. [facility] accepting but state they will not start care until pt sees his new PCP 06/06. New PCP Dr.Mary Vang has reported to the team she will follow patient for HC and weekly INR checks. [facility] states they need to confirm with her. Pt states his can handle the wound care until then. Pt to resume community dialysis chair. Discharge Information Row Name ED to Hosp-Admission (Current) from 04/20/2025 in HOSP MAIN G080 Home Health Care Agency [facility] SN wound care Other Follow-Up Type Dialysis Name [facility] Instructions via right double lumen IJ SIGNATURE: Juve Buchanan RN PATIENT NAME: Elia Weston DATE: May 27, 2025 TIME: 4:06 PM CASE MANAGEM Observed: 05/27/2025 11:58 AM Status: COMPLETED Source: [facility] HNO ID: [id number] Author: JUVE BUCHANAN RN Service: Care Management Author Type: Registered Nurse Type: Care Mgt Progress Note Filed: 05/27/2025 12:20 Note Text: CARE MANAGEMENT WEEKEND PLANNING NOTE POSSIBLE WEEKEND/HOLIDAY DISCHARGE WITH HOME CARE DISCHARGE OR POSSIBLE DISCHARGE Date/Time: TBD Disposition: Home with home care SN for wound care Transport: Family to drive home Weekend Market Research Executive Pager #: Please see Treatment Team for Care Management Weekend/Holiday coverage. Per Dialysis Coordinator patient is all set to continue his Dialysis community chair at [facility]. [facility] Dialysis coordinator will send facility the required paperwork (since patient has been admitted for so long) [facility] accepting for home care SN wound care, but have not confirmed SOC date. Pt has appt on 06/06 with new PCP . Per team, agreed to follow patients home care and INR needs even prior to appt on 06/06. [facility] still needing confirmation of this. SIGNATURE: Juve Buchanan RN PATIENT NAME: Elia Weston DATE: May 27, 2025 TIME: 11:58 AM ALLIED HEALTH Observed: 05/27/2025 11:40 AM Status: COMPLETED Source: [facility] HNO ID: [id number] Author: NOAH JUAREZ Chaplain Service: Spiritual Care Author Type: Radio News Anchor Type: Allied Health Filed: 05/27/2025 12:47 Note Text: SPIRITUALCARE Spiritual Care Visit- Brief Note Name: lEia Weston Date: May 27, 2025 Notes: Radio News Anchor responded to HS referral. Attempted visit wit patient. Patient was not in the room, private watchman was informed that patient went for dialysis. Radio News Anchor will visit again as able. SIGNATURE: Chaplain Frank PATIENT NAME: Elia Weston DATE: May 27, 2025 TIME: 12:45 PM This is an electronically created document. IF PRINTED, PLEASE DO NOT REMOVE FROM THE CHART OR MODIFY PRINTED COPY. CONSULT PROG Observed: 05/27/2025 10:39 AM Status: COMPLETED Source: [facility] HNO ID: [id number] Author: GIBSON ABBOTT APRN.CNP Service: Nephrology Author Type: Nurse Practitioner Type: Consult Progress Note Filed: 05/27/2025 10:43 Note Text: CONSULT PROGRESS NOTE NEPHROLOGY Q6 SERVICE SERVICE DATE: 05/27/2025 SERVICE TIME: 10:39 AM SUBJECTIVE INTERVAL HISTORY: -Patient seen on dialysis, single evaluation. Orders confirmed and documented per LEONEL. -Seen tolerating IHD with no current complaints MEDICATIONS: Current Facility-Administered Medications Medication Dose Route Frequency NaCl 0.9% iv flush bag 20 mL INTRAVENOUS PRN acetaminophen 650 mg tab(s) (TYLENOL) 650 mg ORAL q 6 H PRN aspirin 81 mg chewable tab(s) 81 mg ORAL DAILY midodrine 20 mg tab(s) (PROAMATINE) 20 mg ORAL q 8 H sevelamer carbonate 800 mg tab(s) (RENVELA) 800 mg ORAL TID w MEALS calcitriol 1.5 mcg cap(s) (ROCALTROL) 1.5 mcg ORAL MO-WE- fentaNYL 50 mcg/mL 25 mcg injection (SUBLIMAZE) 25 mcg INTRAVENOUS DAILY PRN warfarin order for discharge OTHER PRN ascorbic acid 500 mg chewable tab(s) 500 mg ORAL DAILY pyridoxine (vitamin B6) 50 mg tab(s) (VITAMIN B6) 50 mg ORAL DAILY vitamin A 10,000 Units cap(s) (AQUASOL A) 10,000 Units ORAL DAILY fentaNYL 50 mcg/mL 50 mcg injection (SUBLIMAZE) 50 mcg INTRAVENOUS DAILY PRN melatonin 3 mg tab(s) 3 mg ORAL/FEEDING TUBE AT BEDTIME PRN Darbepoetin [place] In Polysorbat 60 mcg injection (ARANESP) 60 mcg SUBCUTANEOUS q Wed oxyCODONE IR 15 mg tab(s) (ROXICODONE) 15 mg ORAL q 4 H PRN busPIRone 5 mg tab(s) (BUSPAR) 5 mg ORAL DAILY diazePAM 2.5 mg injection (VALIUM) 2.5 mg INTRAVENOUS BID PRN senna 17.2 mg tab(s) (SENOKOT) 17.2 mg ORAL/FEEDING TUBE BID polyethylene glycol 3350 17 g packet 17 g ORAL BID cinacalcet 30 mg tab(s) (SENSIPAR) 30 mg ORAL DAILY dextrose 15 gram/32 mL 15 g (TRUEPLUS) 15 g ORAL PRN Or glucagon 1 mg injection 1 mg INTRAMUSCULAR PRN Or dextrose 10% iv bolus 12.5 g INTRAVENOUS PRN bisacodyl EC 10 mg tab(s) (DULCOLAX) 10 mg ORAL BID heparin iv infusion 25,000 units in NaCl 0.45% 250 mL STROKE NOMOGRAM 0-3,000 Units/hr INTRAVENOUS CONTINUOUS OBJECTIVE PHYSICAL EXAM: BP 99/67 Pulse 80 Temp 36.9 ?C (98.4 ?F) (Oral) Resp 18 Ht 177 cm (5' 9.69) Wt 122.6 kg (270 lb 4.5 oz) SpO2 99% BMI 39.13 kg/m? Intake/Output Summary (Last 24 hours) at 05/27/2025 1039 Last data filed at 05/26/2025 1700 Gross per 24 hour Intake 120 ml Output 0 ml Net 120 ml Constitutional:No acute distress, awake, alert and responsive Cardiovascular:Regular rate and rhythm 1+ BLE edema Respiratory:Normal respiratory effort on RA Abdomen:Soft, non-tender, non-distended Psychiatric: Alert and oriented x self, place, time, and setting Normal mood/affect Vascular Access: Hemodialysis catheter location: Right Tunneled internal jugular. Exit site demonstrates: normal findings DATA: Diagnostic tests reviewed for today's visit: Recent Labs 05/27/25 0311 05/26/25 0559 05/24/25 1640 05/24/25 0711 05/23/25 0725 NA 139 139 142 135* 140 K 4.5 4.6 5.3* 6.3* 5.7* CHLOR 100 101 93* 95* 98 CO2 25 26 27 25 25 BUN 20 12 23 20 25* CREAT 5.24* 4.03* 5.99* 5.45* 7.96* GLUC 86 75 92 105* 84 ANION 14 12 22* 15 17* CA 8.2* 8.4* 7.8* 7.6* 7.2* P -- -- -- -- 4.3 Recent Labs 05/27/25 0311 05/26/25 0559 05/25/25 1015 WBC 5.46 4.79 5.43 HB 8.1* 8.0* 7.8* HCT 25.7* 26.2* 25.5* PLT 160 161 165 ASSESSMENT: Mr. 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 Labs on presentation significant for elevated lactic acid, leukocytosis, anemia and supratherapeutic INR. Of note, his previous admission 10/12/2024-11/02/2024 was also for pain and bleeding of the wounds/skin ulcers. Biopsy was consistent with reactive ischemic changes at the time without features of Polyderma Gangrenosum or calciphylaxis. Patient was admitted under general internal medicine team for further management. Course c/b new 2nd degree AV shantell, mobitz type 1. Plan for pacemaker 05/23 Nephrology consulted for ESR management. 1.ESRD -Etiology: HTN Renal Biopsy 2005 for renal failure of undetermined etiology. 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 using an angioplasty balloon per IR 2.Electrolytes/acid-base: -Controlled on IHD 3.Hypertension/Volume Status: -BP 106/71 -Midodrine 20mg q8h -Pre-weight: 123.5kg (bed weight) EDW: 114kg -Targeting 2L UF with crit line assist -Improving Hypervolemia 4.Anemia of CKD: -Hgb below ESRD goal -Iron Stores: ferritin 996 TSAT 15.4- deferring IV iron with IE work up -ANABELLA: Weekly Aranesp 5.Secondary renal hyperparathyroidism: -Calcitriol 1.5mcg TIW, Sensipar 30mg daily, Revela 800mg TID with meals -PTH 578--> 181 PLAN: -IHD today 4 hours, 2K bath, 2L UF +heparin for ongoing system clotting concerns -Next IHD Friday -EDW 114kg -Weekly Aranesp Standard ESRD recommendations and precautions: - Strict IANDOs and Daily weight - Consider a RENAL Diet for HD patients - Fluid restriction < 1 L - Start Nephrocap or other renal multivitamin to replace water-soluble vitamins lost during dialysis - Avoid Lovenox, Gadolinium (MRI contrast), Demerol, Morphine, K-containing IVF, Mg- or Phos- containing enemas -Dose meds eGFR<10 Outpatient dialysis disposition plan: contact [phone] and ask to speak with the director of front office as needed for assistance with post-discharge arrangements. Please DO NOT schedule patient for a nephrology follow up appointment. Kidney care will be provided by the primary data warehousing engineer at their dialysis unit upon hospital discharge. Disclosures: Parts of the current progress note may have been copied from a previous note. SIGNATURE: Gibson Abbott APRN.MIKI PATIENT NAME: Elia Weston DATE: May 27, 2025 TIME: 10:39 AM PAGER: [phone] FOR AFTER HOUR CONCERNS BETWEEN 5PM - 7AM CONTACT ON-CALL NEPHROLOGY FELLOW PROGRESS Observed: 05/27/2025 9:14 AM Status: [id number] Author: ?, ?, ? Service: Nephrology Author Type: ? Type: Progress Notes Filed: 05/27/2025 09:14 Note Text: DIALYSIS PLACEMENT NOTE Confirmed patient's IHD schedule with established outpatient dialysis unit. He is able to resume schedule when discharged. Facility: [facility] ([address] [address]) Days: Fri/Fri/Fri Chair Time: 9:00 AM Configuration Release Manager: Dr. Melendez Signature: Bj Rico Patient Name: Elia Weston Date: May 27, 2025 Time: 9:14 AM PT PNL PPP Collected: 05/27/2025 9:03 AM Status: F Source: [facility] Order Comment: Specimen Type : BLOOD SPECIMEN Ordering Facility: [facility] Address: [address] [place] [address] TYPE CODE TESTS RESULT OUT OF RANGE REFERENCE UNITS LAB 5902-2(LOINC) Prothrombin time 20.6 High 9.7-13.0 sec LAB 6301-6(LOINC) INR PPP 2.0 High 0.9-1.3 Result Comment: Vitamin K An tagonist (VKA) Therapeutic Range: INR 2 to 3 (Target INR of 2.5) Note: For patients treated with VKA drugs, such as warfarin, the [place] [employer] 2012 Guideline recommends a therapeutic INR range of 2 to 3 (target INR of 2.5). This recommendation includes high-risk patients with antiphospholipid syndrome with previous arterial or venous thromboembolism, current-generation mechanical or bioprosthetic aortic heart valve replacement. Note: Patients with mechanical aortic valve replacement and additional risk factors for thromboembolic events (atrial fibrillation, previous thromboembolism, LV dysfunction, hypercoagulable conditions) or an older generation mechanical AVR (i.e., ball in-Cage) or any mechanical MVR should have a INR therapeutic range of 2.5 to 3.5 (target INR of 3). Guparthtt GH, et al. Chest 2012, 141:7S-47S Kevin RA, et al. JACC 2017, 70: 252-289 Performed By: #### 27113-0, PTTAC #### [facility] CLIA [id number] [address] [place] [address] [place] PTT, ANTICOAGULANT THERAPY Collected: 0 05/27/2025 9:03 AM Status: F Source: [facility] Order Comment: Specimen Type : BLOOD SPECIMEN Ordering Facility: [facility] Address: [address] [place] [address] TYPE CODE TESTS RESULT OUT OF RANGE REFERENCE UNITS LAB 83752-0(LOINC) aPTT PPP 63.3 High 23.0-32.4 sec Performed By: #### 09534-7, PTTAC #### [facility] CLIA [id number] [address] [place] [address] THERAPY NT Observed: 05/27/2025 8:44 AM Status: COMPLETED Source: [facility] HNO ID: [id number] Author: LUCILLE MURPHY PT Service: Physical Therapy Author Type: Bicycle Subassembler Type: Therapy (PT/OT/Speech/Resp) Filed: 05/27/2025 09:20 Note Text: Attestation signed by Lucille Murphy PT at 05/27/2025 9:20 AM I reviewed and agree with the documentation corresponding to this therapy visit. SIGNATURE: Lucille Murphy PT DATE: May 27, 2025 TIME: 9:20 AM PHYSICAL THERAPY MISSED VISIT SERVICE DATE: 05/27/2025 SERVICE TIME: 842 ROOM: [place] [address] (Q6 - DIALYSIS) Patient not seen due to Test / Procedure. SIGNATURE: Artie Chi PTA PATIENT NAME: Elia Weston DATE: May 27, 2025 TIME: 8:44 AM PROGRESS Observed: 05/27/2025 6:53 AM Status: COMPLETED Source: [facility] HNO ID: [id number] Author: RIVAS SOLITARIO MD Service: General Internal Medicine Author Type: Physician Type: Progress Notes Filed: 05/27/2025 17:08 Note Text: Internal Medicine Progress Note Patient Name: Elia Weston Patient Location: [place] [address] Admission Date: 04/20/2025 Length of Stay: 36 Primary Service: JEFFREY Haq Staff: Rivas Solitario MD From 5pm - 7am, [place] [phone]. INTERVAL HISTORY: -No acute events overnight, SBP 90s to 110s, afebrile, satting well on RA. -Patient seen in Q6 while getting dialysis, doing well. Denied chest pain, shortness of breath, palpitations, fever, chills, n/v/d. -Patient started on heparin stroke nomogram 05/26, PTT 45.3 (05/26) -> 41.4 -> 63.3 (05/27) -Warfarin 5 mg 05/26, PT/INR 1.9 (05/27, 3 AM) -> 2.0 (05/27, 9 AM) OBJECTIVE MEDICATIONS: Current Facility-Administered Medications Medication Dose Route Frequency NaCl 0.9% iv flush bag 20 mL INTRAVENOUS PRN acetaminophen 650 mg tab(s) (TYLENOL) 650 mg ORAL q 6 H PRN aspirin 81 mg chewable tab(s) 81 mg ORAL DAILY midodrine 20 mg tab(s) (PROAMATINE) 20 mg ORAL q 8 H sevelamer carbonate 800 mg tab(s) (RENVELA) 800 mg ORAL TID w MEALS calcitriol 1.5 mcg cap(s) (ROCALTROL) 1.5 mcg ORAL - fentaNYL 50 mcg/mL 25 mcg injection (SUBLIMAZE) 25 mcg INTRAVENOUS DAILY PRN warfarin order for discharge OTHER PRN ascorbic acid 500 mg chewable tab(s) 500 mg ORAL DAILY pyridoxine (vitamin B6) 50 mg tab(s) (VITAMIN B6) 50 mg ORAL DAILY vitamin A 10,000 Units cap(s) (AQUASOL A) 10,000 Units ORAL DAILY fentaNYL 50 mcg/mL 50 mcg injection (SUBLIMAZE) 50 mcg INTRAVENOUS DAILY PRN melatonin 3 mg tab(s) 3 mg ORAL/FEEDING TUBE AT BEDTIME PRN Darbepoetin [place] In Polysorbat 60 mcg injection (ARANESP) 60 mcg SUBCUTANEOUS q Wed oxyCODONE IR 15 mg tab(s) (ROXICODONE) 15 mg ORAL q 4 H PRN busPIRone 5 mg tab(s) (BUSPAR) 5 mg ORAL DAILY diazePAM 2.5 mg injection (VALIUM) 2.5 mg INTRAVENOUS BID PRN senna 17.2 mg tab(s) (SENOKOT) 17.2 mg ORAL/FEEDING TUBE BID polyethylene glycol 3350 17 g packet 17 g ORAL BID cinacalcet 30 mg tab(s) (SENSIPAR) 30 mg ORAL DAILY dextrose 15 gram/32 mL 15 g (TRUEPLUS) 15 g ORAL PRN Or glucagon 1 mg injection 1 mg INTRAMUSCULAR PRN Or dextrose 10% iv bolus 12.5 g INTRAVENOUS PRN bisacodyl EC 10 mg tab(s) (DULCOLAX) 10 mg ORAL BID heparin iv infusion 25,000 units in NaCl 0.45% 250 mL STROKE NOMOGRAM 0-3,000 Units/hr INTRAVENOUS CONTINUOUS ALLERGIES: Gabapentin and Trazodone heparin, Last Rate: 1,600 Units/hr (05/27/25 06) PHYSICAL EXAM: Vital Signs (last filed) Range in last 24h Temp: 36.9 ?C (98.4 ?F) (05/27/25 0102) Temp Min: 36.8 ?C (98.2 ?F) Max: 36.9 ?C (98.4 ?F) Pulse: 91 (05/27/25521) Pulse Min: 76 Max: 114 Resp: 18 (05/27/25521) Resp Min: 18 Max: 18 BP: 117/74 (05/27/25521) BP Min: 90/13 Max: 135/54 MAP Non Invasive (Mean Arterial Pressure): 83 (05/27/25521) MAP Non Invasive (Mean Arterial Pressure) Min: 21 Max: 86 No data recorded SpO2: 99 % (05/27/25521) SpO2 Min: 98 % Max: 100 % Pain Level: 0 (05/27/25 0400) General: AANDOx4, cooperative Skin: Right left anterior and posterior chest wounds without purulent discharge Lungs: CTA bilaterally, no wheezing or crackles Cardiac: RRR. Normal S1 S2, no S3 or S4 Abdomen: soft, nontender, nondistended Lines, Drains, and Airways Line Duration Peripheral 04/26/25 2100 [facility] Right Forearm 20 Gauge 30 days Dialysis / Apheresis Double Lumen 04/29/25 1005 [facility] Tunneled Right Internal Jugular 27 days Intake/Output 05/24/25 0700 - 05/25/25 0659 05/25/25 0700 - 05/26/25 0659 05/26/25 0700 - 05/27/25 0659 Intake (ml) -- 480 120 Output (ml) 2800 1351 0 Net (ml) -2800 -871 120 Last Weight: 122.6 kg (270 lb 4.5 oz) (05/27/25 0614) Admit Weight: 115.6 kg (254 lb 13.6 oz) (Pt refusing to get on scale, states this was his last weight from dialysis on friday) (04/20/25 1844) LABS: CBC: Recent Labs 05/27/25 0311 05/26/25 0559 05/25/25 1015 05/24/25 0711 05/23/25 0725 05/22/25 0905 05/21/25 0414 05/20/25 1004 WBC 5.46 4.79 5.43 3.71 4.56 4.55 4.92 4.78 HB 8.1* 8.0* 7.8* 8.0* 7.9* 7.8* 7.8* 6.9* HCT 25.7* 26.2* 25.5* 27.0* 26.1* 25.9* 25.5* 22.9* PLT 160 161 165 201 202 189 190 170 MCV 94.1 94.2 96.2 97.1 95.3 97.0 93.1 97.4 RDWCV 18.1* 18.0* 18.4* 18.5* 18.6* 18.8* 19.2* 19.2* BMP: Recent Labs 05/27/25 0311 05/26/25 0559 05/24/25 1640 05/24/25 0711 05/23/25 0725 05/22/25 0905 05/21/25 0414 05/20/25 0713 GLUC 86 75 92 105* 84 76 92 95 NA 139 139 142 135* 140 137 137 139 K 4.5 4.6 5.3* 6.3* 5.7* 5.2* 4.6 5.4* CHLOR 100 101 93* 95* 98 99 97* 99 CO2 25 26 27 25 25 23 27 25 ANION 14 12 22* 15 17* 15 13 15 BUN 20 12 23 20 25* 17 10 20 CREAT 5.24* 4.03* 5.99* 5.45* 7.96* 6.72* 4.64* 6.81* CHEM: Recent Labs 05/27/2531005/26/25 0559 05/24/25 1640 05/24/25 0711 05/23/25 0725 05/22/25 0905 05/21/25 0414 05/20/25 0713 ALB 3.7* 3.6* -- 3.7* 3.5* 3.4* 3.7* 3.4* TPROT 7.1 7.3 -- 7.5 7.1 6.9 7.6 6.8 CA 8.2* 8.4* 7.8* 7.6* 7.2* 7.8* 8.1* 7.3* HEPATIC: Recent Labs 05/27/2531005/26/25 0559 05/24/25 0711 05/23/25 0725 05/22/25 0905 05/21/25 0414 05/20/25 0713 ALKPHOS 144* 144* 146* 148* 144* 157* 138* ALT 5* <5* 11 10 10 11 10 AST 27 25 28 18 20 23 22 TBILI 0.3 0.2 0.2 0.2 0.3 0.3 0.2 COAG: Recent Labs 05/27/2531005/26/25 1820 05/26/25 0559 05/25/25 1015 05/24/25 0711 05/23/25 0725 05/22/25 0905 05/21/25 0414 05/20/25 0713 APTT 41.4* 45.3* -- -- -- -- -- -- -- INR 1.9* -- 1.9* 2.2* 1.7* 1.6* 1.6* 1.7* 2.1* URINALYSIS: No results for input(s): PH, SPGR, UGLUC, UBILI, UKET, UHB, UPROT, UROBIL, UWBC, SSA in the last 168 hours. Invalid input(s): NITR CARDIAC: No results for input(s): CKTEST, CKMB, CKMBP, TROPT, PBNP in the last 168 hours. MICROBIOLOGY: Reviewed. Pertinent findings under AANDP. IMAGING: Reviewed. Pertinent findings under AANDP. ASSESSMENT AND PLAN: Elia Weston is a 45 year old male with extensive PMH, significant for ESRD on HD (MWF) last session 04/18 (skipped Friday since he came to ED), CAD s/p CABG, severe MS s/p MVR on Warfarin (goal INR of 2.5-3.5), pAfib s/p maze procedure and RADHA clip and chronic chest/abdominal/back wounds (3 years) likely secondary to ischemia in context of SVC syndrome and multiple thrombosis, who presented to the ED with 1-day of left chronic chest wound bleeding. Admitted for management of bleeding, and on transfer to [facility], patient began to have significant bleeding from R chest wound. Continuous pressure was applied and bleeding stopped. Now s/p FFP and RBC transfusions as appropriate. Initially started on Vanc/Zosyn given elevated ESR/CRP and WBC, no infectious concern on further imaging with improved lactate WBC, so ABx were stopped. Dermatology and wound care consulted. 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 Patient has multiple ED visits/hospital admissions over the past year for similar complaints, with ongoing chronic wounds for around 3 years prior to presentation. - Patient on presentation had leukocytosis leukocytosis WBC 13.2, CRP 22.1, ESR 133, patient briefly on vancomycin and Zosyn (04/21 to 04/25), blood cultures 04/20 with NG5D x2 discontinued due to low infectious concern. CT imaging with no drainable fluid collection, extensive chest collaterals. - Punch biopsy 06/26/2023: Ulcer with dermal fibrosis, vascular ectasia, and reactive vascular proliferation. - Punch biopsy 10/15/2024: Dermal fibrosis and reactive vascular peripheral proliferation, most consistent with reactive ischemic changes in appropriate clinical context. No features of pyoderma gangrenosum or calciphylaxis. Tissue culture is negative (bacterial, fungal, AFB). Of note patient treated with STS for a few months and 2022 for presumed calciphylaxis however was not biopsy-proven at the time. 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 - Dermatology evaluated the patient and supported that likely etiology is ischemic vasculopathy as likely trigger for nonhealing ulcers iso ESRD, HTN, vasculopathy. And given persistent, nonhealing wounds and given patient's limited diet isorecent gout diagnosis, nutritional workup was initiated. During this admission, dermatology discussed repeating biopsy on 04/25 however patient declined due to multiple biopsies in the past. Nutritional workup showed severe vitamin A, B1, C, D, iron deficiencies. Clobetasol 0.05% ointment initially applied to wound edge BID, discontinued 05/03 per derm recs. Patient has been receiving appropriate supplementation. - Plastic surgery consulted for wounds, determined no acute surgical intervention. PLAN: - Continue Vitamin D supplement 5000 unit(s), ascorbic acid 500mg/day, vit B6 50mg/day, vit A 10,000 units/day - Derm consulted: - discontinued clobetasol 0.05% ointment - [facility] D[facility] f/u outpatient - Wound care team consulted, appreciate care - Pain control: tylenol 650 mg q6h prn and oxycodone 15 mg po q4h PRN. - IV fent for dressing changes as needed - Cautious fluid resuscitation in light of acute bleeding and ESRD anuric on HD - Chest wound dressings to be changed every day #severe mitral stenosis, s/p MVR On-X , posterior mitral annulus patch 08/21/2021 #CAD s/p CABG #PAF on warfarin s/p CryoMAZE, RADHA ligation 08/21/2021 #Erratic INR - Atrial fibrillation and severe mitral stenosis s/p mechanical valve replacement with On-x valve (INR goal 2.5-3.5), Maze procedure and RADHA a clip on 08/21/2021. Patient was supposedly taking warfarin 2.5 mg daily - INR elevated to 5.1 on admission, improved to 3.9 following 2 units FFP 04/21. Warfarin initially held and with the plan to start patient on heparin gtt once bleeding is controlled, hemodynamics improved and INR subtherapeutic. - Hgb 6.9 on 04/22, s/p 2U PRBC with Hgb ~ 8 - 04/25 PT/INR 5.3, s/p Vit K 5 mg PO, subsequent INR 1.9. - possible etiology of supratherapeutic INR: warfarin dose (given patient not sure of home dose) vs malnutrition vs liver disease (less likely given AST/ALT wnl) - Given subtherapeutic INR and no surgical intervention by plastics, patient started on heparin gtt with start of warfarin 2.5 mg 04/27. On 05/07, INR 2.6, discontinued heparin gtt, patient given warfarin 10 mg. Patient's INR has been fluctuating and requiring daily adjustments. - Patient started on heparin stroke nomogram 05/26, PTT 45.3 (05/26) -> 41.4 -> 63.3 (05/27) - Warfarin 5 mg 05/26, PT/INR 1.9 (05/27, 3 AM) -> 2.0 (05/27, 9 AM) PLAN: - Discontinue heparin nomogram - Continue warfarin 5 mg which he will continue if he gets discharged today 05/27 with close outpatient appointment - Daily INR - Follows with Dr. Moreno (cardiology in [place]) for mgmt of Coumadin previously - Patient to be set up with Coumadin clinic at [facility] # Second-degree AV Block, Mobitz Type I - Patient having multiple episodes of bradycardia in the hospital with low blood pressures - Magnesium level 2.2 (05/05/25) - EKG (05/05/25) shows Second degree AV block, mobitz type 1 - EKG (05/06/25): shows sinus rhythm with 2nd degree AV shantell, mobitz type 1 - Transthoracic echocardiogram 05/06/25: EF: 60%, left ventricular hypertrophy, right ventricle normal, trace tricuspid valve regurgitation, trace pulmonic valve regurgitation, no pericardial effusion, aorta normal in size -Patient underwent leadless pacemaker with the EP (05/23) no complications reported reported. -Chest x-ray 05/24 with right IJ venous catheter and leadless pacemaker device in place. PLAN: - EP signed off #ESRD on HD via Right TDC #Chronic Hypotension- stable #Secondary 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 #Hyperkalemia - stable - iHD at [facility] through R. Tunneled HD catheter MWF - Last dialysis session Friday04/18/2025; missed Fri session because he presented to [facility] ED - anuric at baseline per patient - Serum P=9.7 - completed HD 04/21, now on MWF - PTH elevated 578, Ca 8.3 low - Last IHD 05/25, 2L UF. 05/26 K 4.6, Na 139. BUN 12 Cr 4.03 (05/26) from 5.99 - continues to have low blood pressure, SBP 90s, asymptomatic. Intermittently responsive to fluid. PLAN: - nephrology consulted: > Continue MWF HD schedule (last session 05/25) > continue calcitriol MWF > Continue weekly Aranesp > Next IHD 05/25 - Continue Sensipar, renvela with meals - Continue home midodrine 20 mg 3 times daily, CTM #Anemia of Chronic Disease/ESRD - Baseline hemoglobin 9-11 - iron studies 12/2024: iron 33, TIBC 156, Iron sat 21, ferritin 1327 - Hgb dropping iso bleeding wounds, as above. - received 1u pRBC 04/21, Hgb from 7.3 -> 7.7 post-transfusion - Hgb 6.9 on 04/22, s/p additional 2u pRBC with Hgb in ~8s - Hgb has been stable, Hgb 8.2 (05/26) PLAN: - Hgb goal >8, 8.4 (05/08/25). - chronic wound mgmt, as above - Iron levels of 36, TIBC- WNL, Ferritin high at 996 on 05/08/25, Replete Iron levels for ANABELLA, per Nephrology recommendation, however due to concerns for ongoing possible endocarditis, we will refrain from IV Iron use until further workup. #Constipation - Last recorded bowel movement was on 05/14/25 PLAN: - Continue Miralax BID - Continue senna BID #Adjustment disorder? #Low mood - Psychology consulted 05/10/25 - Music therapy - Art therapy - Healing services - Aroma therapy, spiritual services, and brief inpatient psychotherapy ordered per Psychology's recommendation, 05/11/25. #Code status - Full # Diet - renal # VTE PPx - warfarin # Dispo Planning - Pending clinical course, SW consulted for recent unemployment, c/f food insecurity Anticoagulant AND Antiplatelet Medications (From admission, onward) Start Dose Route Frequency Last Action Ordered Stop 05/26/25 1100 heparin iv infusion 25,000 units in NaCl 0.45% 250 mL STROKE NOMOGRAM 0-30 mL/hr 0-3,000 Units/hr IV CONTINUOUS New Bag/Syringe/Bottle, 05/27 0607 05/26/25 1033 -- 04/21/25 0900 aspirin 81 mg chewable tab(s) 81 mg PO DAILY Given, 05/26 0836 04/21/25 0316 -- 05/23/25 1800 activity - mobilize patient (nj,ms) 04/21/25 0236 activity - mobilize patient (nj,ms) Signature: Pascale Swartz MD Internal Medicine PGY-1 Note: These recommendations are not final until staffed by provider. ATTENDING PHYSICIAN: Patient seen and evaluated today Mendoza elements of history and physical examination of the patient were confirmed. The assessment and plan were formulated and discussed with the team on Rounds. I reviewed the resident's note, examined the patient and agree with the documented findings and plan of care. Plan of care discussed with: Provider, RN, Patient, Pharmacist, and residents. Rivas Solitario MD mobile- [phone] CBC PNL BLD AUTO Collected: 5 3:11 AM Status: F Source: [facility] Order Comment: Specimen Type : BLOOD SPECIMEN Ordering Facility: [facility] Address: [address] [place] [address] TYPE CODE TESTS RESULT OUT OF RANGE REFERENCE UNITS LAB 6690-2(LOINC) WBC # Bld Auto 5.46 3.70-11.00 k/uL LAB 789-8(INC) RBC # Bld Auto 2.73 Low 4.20-6.00 m/uL LAB 718-7([facility]) Hgb Bld-mCnc 8.1 Low 13.0-17.0 g/dL LAB 4544-3([facility]) Hct VFr Bld Auto 25.7 Low 39.0-51.0 % LAB 787-2([facility]) MCV RBC Auto 94.1 80.0-100.0 fL LAB 785-6([facility]) MCH RBC Qn Auto 29.7 26.0-34.0 pg LAB 786-4([facility]) MCHC RBC Auto-mCnc 31.5 30.5-36.0 g/dL LAB 27113-2([facility]) RDW RBC-Rto 18.1 High 11.5-15.0 % LAB 777-3([facility]) Platelet # Bld Auto 160 150-400 k/uL LAB 59210-1([facility]) PMV Bld Auto 10.6 9.0-12.7 fL LAB 771-6([facility]) nRBC # Bld Auto <0.01 <0.01 k/uL Performed By: #### 92642-7 # ### [facility] CLIA [id number] [address] [place] [address] OF [facility] PT PNL PPP Collected: 05/27/2025 3:11 AM Status: F Source: [facility] Order Comment: Specimen Type : BLOOD SPECIMEN Ordering Facility: [facility] Address: [address] [place] [address] TYPE CODE TESTS RESULT OUT OF RANGE REFERENCE UNITS LAB 5902-2([facility]) Prothrombin time 19.5 High 9.7-13.0 sec LAB 6301-6([facility]) INR PPP 1.9 High 0.9-1.3 Result Comment: Vitamin K An tagonist (VKA) Therapeutic Range: INR 2 to 3 (Target INR of 2.5) Note: For patients treated with VKA drugs, such as warfarin, the [place] College [employer]icians 2012 Guideline recommends a therapeutic INR range of 2 to 3 (target INR of 2.5). This recommendation includes high-risk patients with antiphospholipid syndrome with previous arterial or venous thromboembolism, current-generation mechanical or bioprosthetic aortic heart valve replacement. Note: Patients with mechanical aortic valve replacement and additional risk factors for thromboembolic events (atrial fibrillation, previous thromboembolism, LV dysfunction, hypercoagulable conditions) or an older generation mechanical AVR (i.e., ball in-Cage) or any mechanical MVR should have a INR therapeutic range of 2.5 to 3.5 (target INR of 3). Ranjit GH, et al. Chest 2012, 141:7S-47S Kevin RA, et al. [facility] 2017, 70: 252-289 Performed By: #### PTTAC, 34 528-0 #### [facility] CLIA [id number] [address] [place] [address] [place] PTT, ANTICOAGULANT THERAPY Collected: 0 05/27/2025 3:11 AM Status: F Source: [facility] Order Comment: Specimen Type : BLOOD SPECIMEN Ordering Facility: [facility] Address: [address] [place] [address] TYPE CODE TESTS RESULT OUT OF RANGE REFERENCE UNITS LAB 37317-4(LOINC) aPTT PPP 41.4 High 23.0-32.4 sec Performed By: #### PTTAC, 34 528-0 #### [facility] CLIA [id number] [address] [place], [place] [id number] [place] COMP METAB 2000 PNL SERPL Collected: 3:11 AM Status: F Source: [facility] Order Comment: Specimen Type : BLOOD SPECIMEN Ordering Facility: [facility] Address: [address] [place] [address] TYPE CODE TESTS RESULT OUT OF RANGE REFERENCE UNITS LAB 2885-2(LOINC) Prot SerPl-mCnc 7.1 6.3-8.0 g/dL LAB 1751-7(LOINC) Albumin SerPl-mCnc 3.7 Low 3.9-4.9 g/dL LAB 50601-3(LOINC) Calcium SerPl-mCnc 8.2 Low 8.5-10.2 mg/dL LAB 1975-2(LOINC) Bilirub SerPl-mCnc 0.3 0.2-1.3 mg/dL LAB 6768-6(LOINC) ALP SerPl-cCnc 144 High 38-113 U/L LAB 1920-8(LOINC) AST SerPl-cCnc 27 14-40 U/L LAB 1742-6(LOINC) ALT SerPl-cCnc 5 Low 10-54 U/L LAB 2345-7(LOINC) Glucose SerPl-mCnc 86 74-99 mg/dL Result Comment: The [place] Diabetes Association (ADA) provides guidance for cutoff values for fasting glucose and random glucose. The ADA defines fasting as no caloric intake for at least 8 hours. Fasting plasma glucose results between 100 to 125 mg/dL indicate increased risk for diabetes (prediabetes). Fasting plasma glucose results greater than or equal to 126 mg/dL meet the criteria for diagnosis of diabetes. In the absence of unequivocal hyperglycemia, results should be confirmed by repeat testing. In a patient with classic symptoms of hyperglycemia or hyperglycemic crisis, random plasma glucose results greater than or equal to 200 mg/dL meet the criteria for diagnosis of diabetes. Reference: Standards of Medical Care in Diabetes 2016, [place] Diabetes Association. Diabetes Care. 2016.39(Suppl 1). LAB 3094-0(LOINC) BUN SerPl-mCnc 20 9-24 mg/dL LAB 2160-0(LOINC) Creat SerPl-mCnc 5.24 High 0.73-1.22 mg/dL LAB 2951-2(LOINC) Sodium SerPl-sCnc 139 136-144 mmol/L LAB 2823-3(LOINC) Potassium SerPl-sCnc 4.5 3.7-5.1 mmol/L LAB 2075-0(LOINC) Chloride SerPl-sCnc 100 98-107 mmol/L LAB 2028-9(LOINC) CO2 SerPl-sCnc 25 22-30 mmol/L LAB 54718-5(LOINC) Anion Gap SerPl-sCnc 14 8-15 mmol/L LAB 24030-3(LOINC) eGFRcr SerPlBld CKD-EPI 2020 13 Low >=60 mL/min/1. 73m??? Result Comment: Estimated Gl omerular Filtration Rate (eGFR) is calculated using the 2020 CKD-EPI creatinine equation. This equation utilizes serum creatinine, sex, and age as parameters. The creatinine assay has traceable calibration to isotope dilution-mass spectrometry. Refer to KDIGO guidelines for clinical interpretation. In patients with unstable renal function, e.g. those with acute kidney injury, the eGFR may not accurately reflect actual GFR. Performed By: #### 05266-1 # ### [facility] CLIA [id number] [address] [place] [address] PTT, ANTICOAGULANT THERAPY Collected: 0 05/26/2025 6:20 PM Status: F Source: [facility] Order Comment: Specimen Type : BLOOD SPECIMEN Ordering Facility: [facility] Address: [address] [place] [address] TYPE CODE TESTS RESULT OUT OF RANGE REFERENCE UNITS LAB 98039-7(LOINC) aPTT PPP 45.3 High 23.0-32.4 sec Performed By: #### PTTAC ### # [facility] CLIA [id number] [address] [place] [address] OF [facility] THERAPY NT Observed: 05/26/2025 5:07 PM Status: COMPLETED Source: [facility] HNO ID: [id number] Author: LUCILLE MURPHY PT Service: Physical Therapy Author Type: Bicycle Subassembler Type: Therapy (PT/OT/Speech/Resp) Filed: 05/27/2025 07:24 Note Text: Attestation signed by Lucille Murphy PT at 05/27/2025 7:24 AM I reviewed and agree with the documentation corresponding to this therapy visit. SIGNATURE: Lucille Murphy PT DATE: May 27, 2025 TIME: 7:24 AM Physical Therapy Treatment Summary SERVICE DATE: 05/26/2025 SERVICE TIME: 1639 to 1702 ROOM: [place] [address] PT 6 Clicks Score: 21 DISCHARGE RECOMMENDATIONS Home PT Anticipated Discharge Needs: Physical Assist at Home Physical Assist at Home for: Transfers, Cleaning, Laundry, Meals, Stairs, Safety, Self Care, Shopping, Transportation (+ PRN) ASSESSMENT Pt was able to ambulate however, appears a little unsteady. Unable to leesa gait belt on due to wounds. Pt states he previously used a cane and would like to try one. 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 Has been sleeping in recliner 2/2 to pain. (+) driving SUBJECTIVE THERAPY DIAGNOSIS Reduced mobility-other, Muscle Weakness (generalized), General symptoms and signs-other TREATMENT INTERVENTIONS Therapeutic Activity (04480), Gait Training (35727) Timed Code Treatment (minutes): 23 Skilled Treatment Time (minutes): 23 TRAINING AND EDUCATION PROVIDED Assistive Device Use, Benefits of In-Hospital Mobility, Gait Pattern, Reduction of Deviations, Role of Physical Therapy, Transfers THERAPEUTIC SKILLS USED Cuing Visual, Cuing Verbal, Cuing Tactile, Cues for Sequencing/Proper Technique for Activity, Activity Dosing FUNCTIONAL STATUS Bed Mobility Supine To Sit: Stand By Assistance Scooting: Stand By Assistance Transfers Sit To Stand: Stand By Assistance Stand To Sit: Stand By Assistance Bed to Chair Stand By Assistance Bed To Chair Transfer Type: Stepping Bed To Chair Transfer Equipment: (IV pole) Gait Stand By Assistance Gait Device: IV Pole Gait Distance (feet): 55 Stairs GOALS Patient will demonstrate progress with functional mobility to allow safe discharge to home with available support and/or physical assistance. Rehab Potential: Good Progress Toward Goals: Progressing as expected ACUTE CARE TREATMENT PLAN PT Frequency: Per Next Session Date Treatment Interventions: Education, Self Care / Home Management, Energy Conservation Training, Joint Mobility, Strengthening, Functional Mobility Training, Balance Training, Neuromuscular Re-education Plan for Next Visit: Gait Training, Stair Training SIGNATURE: Artie Chi PTA PATIENT NAME: Elia Weston DATE: May 26, 2025 TIME: 5:07 PM CASE MANAGEM Observed: 05/26/2025 4:56 PM Status: COMPLETED Source: [facility] HNO ID: [id number] Author: NADYA SWAIN RN Service: Care Management Author Type: Registered Nurse Type: Care Mgt Progress Note Filed: 05/26/2025 17:11 Note Text: CARE MANAGEMENT PROGRESS NOTE SERVICE DATE: 05/26/2025 SERVICE TIME: 4:56 PM LOS: 35 days Needs Prior to Discharge: Accepting Facility, Discharge Prescriptions, Wound Care Per medical team patient is ready for discharge when HHC is set, wound care appt and final decision on coumadin dose, he can leave . Per Bell Musa, Dr. Pablo Vang has agreed to follow patient for home care and coumadin but she did not discuss if she would follow prior to June 07 appointment. CM messaged [facility] to inform them Dr. Vang has agreed and asked them to reach out to her to receive home care orders and they can see upon discharge. [facility] did not respond through [facility]. CM met with patient at bedside. Patient very drowsy. Waiting for plastics to change his dressings. Patient had recently received valium iv prior to dressing change. Patient plans to drive himself home. He states his can do the dressing changes if she has the supplies. Bedside Nurse should provide dressing supplies at discharge and Home Care can supplement once they open the case. CM notified team of patient's intention to drive himself home and alert them to his alertness. Team will work on his pain management. Per Dialysis Coordinator patient is all set to continue his Dialysis when he returns home. [facility] will continue to follow POC for discharge planning. SIGNATURE: Nadya Swain RN PATIENT NAME: Elia Weston DATE: May 26, 2025 TIME: 4:56 PM ALLIED HEALTH Observed: 05/26/2025 4:39 PM Status: COMPLETED Source: [facility] HNO ID: [id number] Author: SHANNON HOOD Music Therapist Service: Music Therapy Author Type: Therapist Type: Allied Health Filed: 05/26/2025 16:54 Note Text: MUSIC THERAPY NOTE SERVICE DATE: 05/26/2025 SERVICE TIME: 2:20 - 3:35 PM Referred By: Other: See Comment (resident/fellow) Reason for Referral: Coping Skills, Anxiety Session Type: Follow Up Time Spent (minutes): 75 GOALS: Goals: Improve Coping, Build Rapport, Increase Relaxation, Increase Self-expression, Promote Feelings of Control, Provide Emotional Support, Improve Mood Coping Items Addressed: Hospitalization, Skills INTERVENTIONS: Interventions: Instrument Playing, Making Choices, Music Discussion, Music Facilitated Reminiscence, Music Listening, Singing, Therapeutic Use of Self/Verbal Processing Making Choices: Songs, Interventions Listening Type: Live, Recorded Response Before After Pain 4 4/10 Anxiety 0/10 0/10 Mood 2/4 1/4 Facial Behavior 1 - Neutral 0 - Smiling Body Movement 0 - No Movement/Appropriate Movement 0 - No Movement/Appropriate Movement Sleep N/A - Awake N/A - Awake Vocal 1 - Neutral/No Vocal 0 - Positive Scale: 0 = No pain/anxiety 10 = Worst possible pain/anxiety RESPONSE: Music Choices: Made Choices Number of Choices: 10 (10+) Response During Interventions: Knew Songs, Sang, Played Instrument Music Used: Various gospel songs (chosen by patient) Style of Music: Gospel, Spiritual Family Present: No Patient's Verbal Response: Positive OUTCOME: Goals: Met FOLLOW UP: Will Continue to Follow Elia was awake in bed and welcomed music therapy session. He requested to move to chair so that he could play the keyboard. While waiting for [facility] to assist in transferring pt, Elia shared updates on hospitalization, his hope to discharge by this weekend, and that he is greatly looking forward to celebrating with a crab-leg feast. Pt's affect brightened while engaging in socialization. Once transferred to chair, pt engaged actively in playing the keyboard, singing, and sharing many memories associated with the music. Pt shared about various meaningful relationships in his life, especially his musical mentors who have since . Pt played / sang musical tributes for each of these mentors and friends by selecting songs that they taught him (and/or used to perform frequently themselves). 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 During the music, pt expressed much emotion and spirituality through the music, as observed by appropriate tears and animated story-telling. At end of visit, pt expressed gratitude and reported improvement in mood. Music Therapy will continue to follow, pending length of admission. SIGNATURE: Shannon Hood Music Therapist PATIENT NAME: Elia Weston DATE: May 26, 2025 TIME: 4:39 PM PAGER/CONTACT #: [phone] THERAPY NT Observed: 05/26/2025 2:48 PM Status: COMPLETED Source: [facility] ID: [id number] Author: RENÉE MARTINES PT, DPT Service: Physical Therapy Author Type: Bicycle Subassembler Type: Therapy (PT/OT/Speech/Resp) Filed: 05/27/2025 07:47 Note Text: Attestation signed by Renée Martines PT, DPT at 05/27/2025 7:47 AM I reviewed and agree with the documentation corresponding to this therapy visit. SIGNATURE: Renée Martines PT, DPT DATE: May 27, 2025 TIME: 7:47 AM PHYSICAL THERAPY MISSED VISIT SERVICE DATE: 05/26/2025 SERVICE TIME: 1445 ROOM: [place] [address] Patient not seen due to Patient Not Available, other services at bedside on multiple attempts. SIGNATURE: Artie Chi PTA PATIENT NAME: Elia Weston DATE: May 26, 2025 TIME: 2:48 PM CONSULT PROG Observed: 05/26/2025 2:17 PM Status: COMPLETED Source: [facility] HNO ID: [id number] Author: MYRIAM WARD APRN.FLORAL ASSOCIATE Service: Plastic Surgery Author Type: Nurse Practitioner Type: Consult Progress Note Filed: 05/26/2025 14:20 Note Text: PLASTIC SURGERY CONSULT PROGRESS NOTE SERVICE DATE: 05/26/2025 SERVICE TIME: 0935 INTERVAL HISTORY: No further episodes of bleeding from wounds PHYSICAL EXAM: BP 108/42 Pulse 76 Temp (Src) 98.2 (Axillary) Resp 18 Ht 5' 9.685 (1.77m) Wt 261 lb 11 oz (118.7kg) SpO2 100% BMI 37.89 kg/(m2). O2 Therapy: Continuous Positive Airway Pressure Gen: alert, anxious, oriented x 3 Upper mid back wound with dissolving sutures, edges approximate. No s/s of bleeding. Right chest full thickness wound at Nipple Areolar Complex and partial thickness wound under breast fold (healing). No active bleeding. No purulent drainage, no surrounding induration Left chest full thickness wound with small amount of adherent eschar, central wound bed with mild yellow/ fibrinous slough. No purulent drainage, no surrounding induration I/Os: Intake/Output Summary (Last 24 hours) at 05/26/2025 1418 Last data filed at 05/26/2025 0208 Gross per 24 hour Intake 240 ml Output 0 ml Net 240 ml Output by Drain (mL) 05/24/25 0700 - 05/24/25 1459 05/24/25 1500 - 05/24/25 2259 05/24/25 2300 - 05/25/25 0659 05/25/25 0700 - 05/25/25 1459 05/25/25 1500 - 05/25/25 2259 05/25/25 2300 - 05/26/25 0659 05/26/25 0700 - 05/26/25 1418 Patient has no LDAs of requested type attached. LABS: Diagnostic Tests Reviewed for Today's Visit: CBC Recent Labs 05/26/25 0559 05/25/25 1015 05/24/25 0711 WBC 4.79 5.43 3.71 HB 8.0* 7.8* 8.0* HCT 26.2* 25.5* 27.0* PLT 161 165 201 BMP, Mg, Phos Recent Labs 05/26/25 0559 05/24/25 1640 05/24/25 0711 NA 139 142 135* K 4.6 5.3* 6.3* CHLOR 101 93* 95* CO2 BUN 12 23 20 CREAT 4.03* 5.99* 5.45* GLUC 75 92 105* CA 8.4* 7.8* 7.6* Coags Recent Labs 05/26/25 0559 05/25/25 1015 05/24/25 0711 INR 1.9* 2.2* 1.7* Nutrition Labs Albumin Date Value Ref Range Status 05/26/2025 3.6 (L) 3.9 - 4.9 g/dL Final 05/24/2025 3.7 (L) 3.9 - 4.9 g/dL Final 05/23/2025 3.5 (L) 3.9 - 4.9 g/dL Final CRP Date Value Ref Range Status 04/20/2025 22.1 (H) <0.9 mg/dL Final 10/12/2024 3.4 (H) <0.9 mg/dL Final 09/29/2022 9.3 (H) <0.9 mg/dL Final Impression/Recommendations 45 year old male [facility], significant for ESRD on HD (MWF), CAD s/p CABG, severe MS s/p MVR on Warfarin, pAfib s/p maze procedure and RADHA clip and chronic chest/abdominal/back wounds (3 years) likely secondary to ischemia in context of SVC syndrome and multiple thrombosis, who presented to the ED with 1-day of left chronic chest wound bleeding. Admitted for management of bleeding. Posterior back wound, -no further episodes of bleeding -cont with current wound care orders and wound care team. R/L chest wall wounds -dressings removed, no s/s of active bleeding. Wounds were cleaned and new dressings applied. -cont with current wound care orders and wound care team. Plastic Surgery will sign off. Please re-consult as needed Assessment and plan discussed with staff physician, Dr. Parker. Elements copied from my note dated 05/19 have been reviewed and updated where appropriate, and all reflect current assessment and medical decision making from today's encounter, May 26, 2025 SIGNATURE: Myriam Ward APRN.CNP PATIENT NAME: Elia Weston DATE: May 26, 2025 TIME: 1330 CONSULT PROG Observed: 05/26/2025 10:45 AM Status: COMPLETED Source: [facility] ID: [id number] Author: BOLA GARVIN, PhD Service: Psychology Author Type: Psychologist Type: Consult Progress Note Filed: 05/26/2025 15:15 Note Text: Attestation signed by Bola Garvin, PhD at 05/26/2025 3:15 PM STAFF ATTESTATION This service has been performed by a fellow under the direction of myself as supervising psychologist. I was readily available to furnish assistance and direction throughout the encounter. I agree with the fellow's findings and plan as documented and have discussed the case and management of the patient's care with the fellow. Bola Garvin, Ph.D. Clinical Health Psychologist CL PSYCHOLOGY BRIEF NOTE ADMISSION DATE: 04/20/2025 ATTENDING PROVIDER: Rivas Solitario MD PRIMARY CARE PROVIDER: No primary care provider on file. DATE: 05/26/2025 TIME: 10:45-10:55AM Patient was seen laying in bed on his phone upon arrival. Reported mood stability and noted keeping busy through using his phone, prayer, coloring, and planning for his choir. Requested visits from aromatherapy, music therapy, and art therapy. Declined additional needs from psychology at this time. CL Psychology will defer to additional supportive services and will sign off at this time. Re-consultation appreciated as indicated. RECOMMENDATIONS: -Pt reports feelings of overwhelm and freezing in situations where multiple decisions/stressors are present at once. In moments of panic or overwhelm, pt is encouraged to: 1. Continue to utilize his anxiety thermometer worksheet to build somatic awareness of anxiety 2. Ask for PRN anxiety medication to assist in anxiety reduction at level of 5 or higher on thermometer 3. Utilize grounding technique 5-4-3-2-1 to re-center: 5 things you see, 4 things you feel, 3 things you can touch, 2 things you smell, 1 thing you taste 4. Engage in activities with the potential to increase positive emotions, including art and music therapy, working with PT/OT as able, watching television/listening to music, visiting with/calling family members, reading the Bible, watching TikTok videos - Given history of trauma, ensuring pt perceives safety in medical environment is of the utmost importance. Recommend trauma informed care practices including: - limiting the number of caregivers in the room at one time - avoid clustering around patient's bed; provide space and sit at bedside possible - keep providers as consistent as possible - speaking softly, maintaining calm presence at all times, with non-threatening body language - move slowly and ask before touching pt and narrate actions - validating and acknowledging patient emotions - offer patient choice and control with care by providing options whenever possible - Reducing noise and stimulation in the room Given pt's anxiety related to wound care, recommend the following when engaging in wound care and wound image capture to promote feelings of agency, safety, and collaboration: Establishing Consent at Every Step Maintaining privacy and Modesty Empowering the Patient in the Process Utilize Supportive Communication - Appreciate ongoing support from: Art Therapy, Music Therapy, Aromatherapy, and Radio News Anchor/Spiritual Services. - Following d/c the patient may benefit from outpatient psychotherapy follow-up ongoing psychology support. Resources provided to patient. SIGNATURE: Janak Landry PsyD PATIENT NAME: Elia Weston DATE: May 26, 2025 TIME: 11:54 AM CL PSYCHOLOGY PAGER: [phone] CBC PNL BLD AUTO Collected: 5:59 AM Status: F Source: [facility] Order Comment: Specimen Type : BLOOD SPECIMEN Ordering Facility: [facility] Address: [address] [place] [address] TYPE CODE TESTS RESULT OUT OF RANGE REFERENCE UNITS LAB 6690-2([facility]) WBC # Bld Auto 4.79 3.70-11.00 k/uL LAB 789-8(LOINC) RBC # Bld Auto 2.78 Low 4.20-6.00 m/uL LAB 718-7(LOINC) Hgb Bld-mCnc 8.0 Low 13.0-17.0 g/dL LAB 4544-3(LOINC) Hct VFr Bld Auto 26.2 Low 39.0-51.0 % LAB 787-2(LOINC) MCV RBC Auto 94.2 80.0-100.0 fL LAB 785-6(LOINC) MCH RBC Qn Auto 28.8 26.0-34.0 pg LAB 786-4(LOINC) MCHC RBC Auto-mCnc 30.5 30.5-36.0 g/dL LAB 58629-3(LOINC) RDW RBC-Rto 18.0 High 11.5-15.0 % LAB 777-3(LOINC) Platelet # Bld Auto 161 150-400 k/uL LAB 70231-7(LOINC) PMV Bld Auto 11.0 9.0-12.7 fL LAB 771-6(LOINC) nRBC # Bld Auto <0.01 <0.01 k/uL Performed By: #### [id number] # ### [facility] CLIA [id number] [address] [place] [address] [place] COMP METAB 2000 PNL SERPL Collected: 5:59 AM Status: F Source: [facility] Comment: Specimen Type : BLOOD SPECIMEN Ordering Facility: [facility] Address: [address], [place] [id number] TYPE CODE TESTS RESULT OUT OF RANGE REFERENCE UNITS LAB 2885-2(LOINC) Prot SerPl-mCnc 7.3 6.3-8.0 g/dL LAB 1751-7(LOINC) Albumin SerPl-mCnc 3.6 Low 3.9-4.9 g/dL LAB 27722-1(LOINC) Calcium SerPl-mCnc 8.4 Low 8.5-10.2 mg/dL LAB 1975-2(LOINC) Bilirub SerPl-mCnc 0.2 0.2-1.3 mg/dL LAB 6768-6(LOINC) ALP SerPl-cCnc 144 High 38-113 U/L LAB 1920-8(LOINC) AST SerPl-cCnc 25 14-40 U/L LAB 1742-6(LOINC) ALT SerPl-cCnc <5 Low 10-54 U/L LAB 2345-7(LOINC) Glucose SerPl-mCnc 75 74-99 mg/dL Result Comment: The [place] Diabetes Association (ADA) provides guidance for cutoff values for fasting glucose and random glucose. The ADA defines fasting as no caloric intake for at least 8 hours. Fasting plasma glucose results between 100 to 125 mg/dL indicate increased risk for diabetes (prediabetes). Fasting plasma glucose results greater than or equal to 126 mg/dL meet the criteria for diagnosis of diabetes. In the absence of unequivocal hyperglycemia, results should be confirmed by repeat testing. In a patient with classic symptoms of hyperglycemia or hyperglycemic crisis, random plasma glucose results greater than or equal to 200 mg/dL meet the criteria for diagnosis of diabetes. Reference: Standards of Medical Care in Diabetes 2016, [place] Diabetes Association. Diabetes Care. 2016.39(Suppl 1). LAB 3094-0(LOINC) BUN SerPl-mCnc 12 9-24 mg/dL LAB 2160-0(LOINC) Creat SerPl-mCnc 4.03 High 0.73-1.22 mg/dL LAB 2951-2(LOINC) Sodium SerPl-sCnc 139 136-144 mmol/L LAB 2823-3(LOINC) Potassium SerPl-sCnc 4.6 3.7-5.1 mmol/L LAB 2075-0(LOINC) Chloride SerPl-sCnc 101 98-107 mmol/L LAB 2027-(LOINC) CO2 SerPl-sCnc 26 22-30 mmol/L LAB 35832-8(LOINC) Anion Gap SerPl-sCnc 12 8-15 mmol/L LAB 34577-0(LOINC) eGFRcr SerPlBld CKD-EPI 2020 18 Low >=60 mL/min/1. 73m??? Result Comment: Estimated Gl omerular Filtration Rate (eGFR) is calculated using the 2020 CKD-EPI creatinine equation. This equation utilizes serum creatinine, sex, and age as parameters. The creatinine assay has traceable calibration to isotope dilution-mass spectrometry. Refer to KDIGO guidelines for clinical interpretation. In patients with unstable renal function, e.g. those with acute kidney injury, the eGFR may not accurately reflect actual GFR. Performed By: #### [id number] # ### [facility] CLIA [id number] [address] [place] [address] [place] OF [facility] PT PNL PPP Collected: 05/26/2025 5:59 AM Status: F Source: [facility] Order Comment: Specimen Type : BLOOD SPECIMEN Ordering Facility: [facility] Address: [address] [place] [address] TYPE CODE TESTS RESULT OUT OF RANGE REFERENCE UNITS LAB 5902-2(LOINC) Prothrombin time 20.0 High 9.7-13.0 sec LAB 6301-6(LOINC) INR PPP 1.9 High 0.9-1.3 Result Comment: Vitamin K An tagonist (VKA) Therapeutic Range: INR 2 to 3 (Target INR of 2.5) Note: For patients treated with VKA drugs, such as warfarin, the [place] [employer] 2012 Guideline recommends a therapeutic INR range of 2 to 3 (target INR of 2.5). This recommendation includes high-risk patients with antiphospholipid syndrome with previous arterial or venous thromboembolism, current-generation mechanical or bioprosthetic aortic heart valve replacement. Note: Patients with mechanical aortic valve replacement and additional risk factors for thromboembolic events (atrial fibrillation, previous thromboembolism, LV dysfunction, hypercoagulable conditions) or an older generation mechanical AVR (i.e., ball in-Cage) or any mechanical MVR should have a INR therapeutic range of 2.5 to 3.5 (target INR of 3). Ranjit GH, et al. Chest 2012, 141:7S-47S Kevin RA, et al. [facility] 2017, 70: 252-289 Performed By: #### [id number] # ### [facility] CLIA [id number] [address] [place] [address] OF [facility] PROGRESS Observed: 05/26/2025 5:31 AM Status: COMPLETED Source: [facility] HNO ID: [id number] Author: RIVAS SOLITARIO MD Service: General Internal Medicine Author Type: Physician Type: Progress Notes Filed: 05/26/2025 18:24 Note Text: Internal Medicine Progress Note Patient Name: Elia Weston [place] [facility][id number] Admission Date: 04/20/2025 Length of Stay: 35 Primary Service: JEFFREY Haq Staff: Rivas Solitario MD From 5pm - 7am, [place] [phone]. INTERVAL HISTORY: - No acute events overnight, patient continues to be hypotensive low 90s SBP, HR 40s to 60s, satting well on RA, afebrile. Patient on midodrine 20 mg TID, 250 cc NaCl bolus given 05/25 PM. -This morning patient doing well, denied N/V/D, fever, chills, chest pain, shortness of breath. -PT/INR 2.2 (05/25) warfarin decreased from 5 to 4 mg OBJECTIVE MEDICATIONS: Current Facility-Administered Medications Medication Dose Route Frequency NaCl 0.9% iv flush bag 20 mL INTRAVENOUS PRN acetaminophen 650 mg tab(s) (TYLENOL) 650 mg ORAL q 6 H PRN aspirin 81 mg chewable tab(s) 81 mg ORAL DAILY midodrine 20 mg tab(s) (PROAMATINE) 20 mg ORAL q 8 H sevelamer carbonate 800 mg tab(s) (RENVELA) 800 mg ORAL TID w MEALS calcitriol 1.5 mcg cap(s) (ROCALTROL) 1.5 mcg ORAL -WE fentaNYL 50 mcg/mL 25 mcg injection (SUBLIMAZE) 25 mcg INTRAVENOUS DAILY PRN warfarin order for discharge OTHER PRN ascorbic acid 500 mg chewable tab(s) 500 mg ORAL DAILY pyridoxine (vitamin B6) 50 mg tab(s) (VITAMIN B6) 50 mg ORAL DAILY vitamin A 10,000 Units cap(s) (AQUASOL A) 10,000 Units ORAL DAILY fentaNYL 50 mcg/mL 50 mcg injection (SUBLIMAZE) 50 mcg INTRAVENOUS DAILY PRN melatonin 3 mg tab(s) 3 mg ORAL/FEEDING TUBE AT BEDTIME PRN Darbepoetin [place] In Polysorbat 60 mcg injection (ARANESP) 60 mcg SUBCUTANEOUS q Wed oxyCODONE IR 15 mg tab(s) (ROXICODONE) 15 mg ORAL q 4 H PRN busPIRone 5 mg tab(s) (BUSPAR) 5 mg ORAL DAILY diazePAM 2.5 mg injection (VALIUM) 2.5 mg INTRAVENOUS BID PRN senna 17.2 mg tab(s) (SENOKOT) 17.2 mg ORAL/FEEDING TUBE BID polyethylene glycol 3350 17 g packet 17 g ORAL BID cinacalcet 30 mg tab(s) (SENSIPAR) 30 mg ORAL DAILY dextrose 15 gram/32 mL 15 g (TRUEPLUS) 15 g ORAL PRN Or glucagon 1 mg injection 1 mg INTRAMUSCULAR PRN Or dextrose 10% iv bolus 12.5 g INTRAVENOUS PRN bisacodyl EC 10 mg tab(s) (DULCOLAX) 10 mg ORAL BID warfarin 5 mg tab(s) (COUMADIN) 5 mg ORAL/FEEDING TUBE ONCE - WARFARIN heparin iv infusion 25,000 units in NaCl 0.45% 250 mL STROKE NOMOGRAM 0-3,000 Units/hr INTRAVENOUS CONTINUOUS ALLERGIES: Gabapentin and Trazodone heparin, Last Rate: 1,200 Units/hr (05/26/25 1144) PHYSICAL EXAM: Vital Signs (last filed) Range in last 24h Temp: 36.8 ?C (98.2 ?F) (05/26/25 0753) Temp Min: 36.4 ?C (97.5 ?F) Max: 36.8 ?C (98.2 ?F) Pulse: 76 (05/26/25 0753) Pulse Min: 74 Max: 105 Resp: 18 (05/26/25 0753) Resp Min: 16 Max: 20 BP: 127/66 (05/26/25 1108) BP Min: 76/57 Max: 127/66 MAP Non Invasive (Mean Arterial Pressure): 76 (05/26/25 1108) MAP Non Invasive (Mean Arterial Pressure) Min: 21 Max: 76 No data recorded SpO2: 100 % (05/26/25 0753) SpO2 Min: 97 % Max: 100 % Pain Level: 0 (05/26/25 1154) General: AANDOx4, cooperative Skin: Right left anterior and posterior chest wounds without purulent discharge Lungs: CTA bilaterally, no wheezing or crackles Cardiac: RRR. Normal S1 S2, no S3 or S4 Abdomen: soft, nontender, nondistended Lines, Drains, and Airways Line Duration Peripheral 04/26/25 2100 [facility] Right Forearm 20 Gauge 29 days Dialysis / Apheresis Double Lumen 04/29/25 1005 [facility] Tunneled Right Internal Jugular 27 days Intake/Output 05/22/25 0700 - 05/23/25 0659 05/23/25 0700 - 05/24/25 0659 05/24/25 0700 - 05/25/25 0659 05/25/25 0700 - 05/26/25 0659 Intake (ml) 350 -- -- 480 Output (ml) 0 -- 2800 1351 Net (ml) 350 -- -2800 -871 Last Weight: 118.7 kg (261 lb 11 oz) (05/22/25 0639) Admit Weight: 115.6 kg (254 lb 13.6 oz) (Pt refusing to get on scale, states this was his last weight from dialysis on friday) (04/20/25 1844) LABS: CBC: Recent Labs 05/26/25 0559 05/25/25 1015 05/24/25 0711 05/23/25 0725 05/22/25 0905 05/21/25 0414 05/20/25 1004 05/20/25 0713 WBC 4.79 5.43 3.71 4.56 4.55 4.92 4.78 5.66 HB 8.0* 7.8* 8.0* 7.9* 7.8* 7.8* 6.9* 6.4* HCT 26.2* 25.5* 27.0* 26.1* 25.9* 25.5* 22.9* 21.3* PLT 161 165 201 202 189 190 170 172 MCV 94.2 96.2 97.1 95.3 97.0 93.1 97.4 96.4 RDWCV 18.0* 18.4* 18.5* 18.6* 18.8* 19.2* 19.2* 19.5* BMP: Recent Labs 05/26/25 0559 05/24/25 1640 05/24/25 0711 05/23/25 0705/22/25 0905/21/2541305/20/25 0705/19/25 1828 GLUC 75 92 105* 84 76 92 95 89 NA 139 142 135* 140 137 137 139 136 K 4.6 5.3* 6.3* 5.7* 5.2* 4.6 5.4* 4.6 CHLOR 101 93* 95* 98 99 97* 99 97* CO2 26 27 25 25 23 27 25 25 ANION 12 22* 15 17* 15 13 15 14 BUN 12 23 20 25* 17 10 20 14 CREAT 4.03* 5.99* 5.45* 7.96* 6.72* 4.64* 6.81* 5.89* CHEM: Recent Labs 05/26/25 0559 05/24/25163905/24/25 0705/23/25 0705/22/2590405/21/2541305/20/2571205/19/25 1828 ALB 3.6* -- 3.7* 3.5* 3.4* 3.7* 3.4* 3.6* TPROT 7.3 -- 7.5 7.1 6.9 7.6 6.8 7.4 CA 8.4* 7.8* 7.6* 7.2* 7.8* 8.1* 7.3* 7.6* HEPATIC: Recent Labs 05/26/25 0559 05/24/25 0705/23/2572405/22/25 0905/21/2541305/20/2571205/19/25 1828 ALKPHOS 144* 146* 148* 144* 157* 138* 145* ALT <5* 11 10 10 11 10 11 AST 25 28 18 20 23 22 27 TBILI 0.2 0.2 0.2 0.3 0.3 0.2 0.4 COAG: Recent Labs 05/26/25 0559 05/25/25 1015 05/24/25 0711 05/23/25 0725 05/22/25 0905 05/21/25 0414 05/20/25 0713 05/19/25 1827 INR 1.9* 2.2* 1.7* 1.6* 1.6* 1.7* 2.1* 2.2* URINALYSIS: No results for input(s): PH, SPGR, UGLUC, UBILI, UKET, UHB, UPROT, UROBIL, UWBC, SSA in the last 168 hours. Invalid input(s): NITR CARDIAC: No results for input(s): CKTEST, CKMB, CKMBP, TROPT, PBNP in the last 168 hours. MICROBIOLOGY: Reviewed. Pertinent findings under AANDP. IMAGING: Reviewed. Pertinent findings under AANDP. ASSESSMENT AND PLAN: Elia Weston is a 45 year old male with extensive PMH, significant for ESRD on HD (MWF) last session 04/18 (skipped Friday since he came to ED), CAD s/p CABG, severe MS s/p MVR on Warfarin (goal INR of 2.5-3.5), pAfib s/p maze procedure and RADHA clip and chronic chest/abdominal/back wounds (3 years) likely secondary to ischemia in context of SVC syndrome and multiple thrombosis, who presented to the ED with 1-day of left chronic chest wound bleeding. Admitted for management of bleeding, and on transfer to [facility], patient began to have significant bleeding from R chest wound. Continuous pressure was applied and bleeding stopped. Now s/p FFP and RBC transfusions as appropriate. Initially started on Vanc/Zosyn given elevated ESR/CRP and WBC, no infectious concern on further imaging with improved lactate WBC, so ABx were stopped. Dermatology and wound care consulted. 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 Patient has multiple ED visits/hospital admissions over the past year for similar complaints, with ongoing chronic wounds for around 3 years prior to presentation. - Patient on presentation had leukocytosis leukocytosis WBC 13.2, CRP 22.1, ESR 133, patient briefly on vancomycin and Zosyn (04/21 to 04/25), blood cultures 04/20 with NG5D x2 discontinued due to low infectious concern. CT imaging with no drainable fluid collection, extensive chest collaterals. - Punch biopsy 06/26/2023: Ulcer with dermal fibrosis, vascular ectasia, and reactive vascular proliferation. - Punch biopsy 10/15/2024: Dermal fibrosis and reactive vascular peripheral proliferation, most consistent with reactive ischemic changes in appropriate clinical context. No features of pyoderma gangrenosum or calciphylaxis. Tissue culture is negative (bacterial, fungal, AFB). Of note patient treated with STS for a few months and 2022 for presumed calciphylaxis however was not biopsy-proven at the time. 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 - Dermatology evaluated the patient and supported that likely etiology is ischemic vasculopathy as likely trigger for nonhealing ulcers iso ESRD, HTN, vasculopathy. And given persistent, nonhealing wounds and given patient's limited diet isorecent gout diagnosis, nutritional workup was initiated. During this admission, dermatology discussed repeating biopsy on 04/25 however patient declined due to multiple biopsies in the past. Nutritional workup showed severe vitamin A, B1, C, D, iron deficiencies. Clobetasol 0.05% ointment initially applied to wound edge BID, discontinued 05/03 per derm recs. Patient has been receiving appropriate supplementation. - Plastic surgery consulted for wounds, determined no acute surgical intervention. PLAN: - Continue Vitamin D supplement 5000 unit(s), ascorbic acid 500mg/day, vit B6 50mg/day, vit A 10,000 units/day - Derm consulted: - discontinued clobetasol 0.05% ointment - [facility] Derm f/u outpatient - Wound care team consulted, appreciate care - Pain control: tylenol 650 mg q6h prn and oxycodone 15 mg po q4h PRN. - IV fent for dressing changes as needed - Cautious fluid resuscitation in light of acute bleeding and ESRD anuric on HD - Chest wound dressings to be changed every day #severe mitral stenosis, s/p MVR On-X , posterior mitral annulus patch 08/21/2021 #CAD s/p CABG #PAF on warfarin s/p CryoMAZE, RADHA ligation 08/21/2021 #Erratic INR - Atrial fibrillation and severe mitral stenosis s/p mechanical valve replacement with On-x valve (INR goal 2.5-3.5), Maze procedure and RADHA a clip on 08/21/2021. Patient was supposedly taking warfarin 2.5 mg daily - INR elevated to 5.1 on admission, improved to 3.9 following 2 units FFP 04/21. Warfarin initially held and with the plan to start patient on heparin gtt once bleeding is controlled, hemodynamics improved and INR subtherapeutic. - Hgb 6.9 on 04/22, s/p 2U PRBC with Hgb ~ 8 - 04/25 PT/INR 5.3, s/p Vit K 5 mg PO, subsequent INR 1.9. - possible etiology of supratherapeutic INR: warfarin dose (given patient not sure of home dose) vs malnutrition vs liver disease (less likely given AST/ALT wnl) - Given subtherapeutic INR and no surgical intervention by plastics, patient started on heparin gtt with start of warfarin 2.5 mg 04/27. On 05/07, INR 2.6, discontinued heparin gtt, patient given warfarin 10 mg. Patient's INR has been fluctuating and requiring daily adjustments. PT/INR 1.9 (05/26) PLAN: - Given INR being less than 2 (goal 2.5-3.5), increased risk of stroke with the mechanical valve, will bridge with low dose heparin (stroke nomogram) - Warfarin 5 mg 05/26 - Daily INR - Follows with Dr. Moreno (cardiology in [place]) for mgmt of Coumadin previously - Patient to be set up with Coumadin clinic at [facility] # Second-degree AV Block, Mobitz Type I - Patient having multiple episodes of bradycardia in the hospital with low blood pressures - Magnesium level 2.2 (05/05/25) - EKG (05/05/25) shows Second degree AV block, mobitz type 1 - EKG (05/06/25): shows sinus rhythm with 2nd degree AV shantell, mobitz type 1 - Transthoracic echocardiogram 05/06/25: EF: 60%, left ventricular hypertrophy, right ventricle normal, trace tricuspid valve regurgitation, trace pulmonic valve regurgitation, no pericardial effusion, aorta normal in size -Patient underwent leadless pacemaker with the EP (05/23) no complications reported reported. -Chest x-ray 05/24 with right IJ venous catheter and leadless pacemaker device in place. PLAN: - EP signed off #ESRD on HD via Right TDC #Chronic Hypotension- stable #Secondary 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 #Hyperkalemia - stable - iHD at [facility] through R. Tunneled HD catheter MWF - Last dialysis session Friday04/18/2025; missed Fri session because he presented to [facility] ED - anuric at baseline per patient - Serum P=9.7 - completed HD 04/21, now on MWF - PTH elevated 578, Ca 8.3 low - Last IHD 05/25, 2L UF. 05/26 K 4.6, Na 139. BUN 12 Cr 4.03 (05/26) from 5.99 - continues to have low blood pressure, SBP 90s, asymptomatic. Intermittently responsive to fluid. PLAN: - nephrology consulted: > Continue MWF HD schedule (last session 05/25) > continue calcitriol MWF > Continue weekly Aranesp > Next IHD 05/25 - Continue Sensipar, renvela with meals - Continue home midodrine 20 mg 3 times daily, CTM #Anemia of Chronic Disease/ESRD - Baseline hemoglobin 9-11 - iron studies 12/2024: iron 33, TIBC 156, Iron sat 21, ferritin 1327 - Hgb dropping iso bleeding wounds, as above. - received 1u pRBC 04/21, Hgb from 7.3 -> 7.7 post-transfusion - Hgb 6.9 on 04/22, s/p additional 2u pRBC with Hgb in ~8s - Hgb has been stable, Hgb 8.2 (05/26) PLAN: - Hgb goal >8, 8.4 (05/08/25). - chronic wound mgmt, as above - Iron levels of 36, TIBC- WNL, Ferritin high at 996 on 05/08/25, Replete Iron levels for ANABELLA, per Nephrology recommendation, however due to concerns for ongoing possible endocarditis, we will refrain from IV Iron use until further workup. #Constipation - Last recorded bowel movement was on 05/14/25 PLAN: - Continue Miralax BID - Continue senna BID #Adjustment disorder? #Low mood - Psychology consulted 05/10/25 - Music therapy - Art therapy - Healing services - Aroma therapy, spiritual services, and brief inpatient psychotherapy ordered per Psychology's recommendation, 05/11/25. #Code status - Full # Diet - renal # VTE PPx - warfarin # Dispo Planning - Pending clinical course, SW consulted for recent unemployment, c/f food insecurity Anticoagulant AND Antiplatelet Medications (From admission, onward) Start Dose Route Frequency Last Action Ordered Stop 05/26/25 1700 warfarin 5 mg tab(s) (COUMADIN) 5 mg PO/FT ONCE - WARFARIN Ordered 05/26/25 0833 05/27/25 0459 05/26/25 1100 heparin iv infusion 25,000 units in NaCl 0.45% 250 mL STROKE NOMOGRAM 0-30 mL/hr 0-3,000 Units/hr IV CONTINUOUS New Bag/Syringe/Bottle, 05/26 1144 05/26/25 1033 -- 04/21/25 0900 aspirin 81 mg chewable tab(s) 81 mg PO DAILY Given, 05/26 0836 04/21/25 0316 -- 05/23/25 1800 activity - mobilize patient (nj,oh) 04/21/25 0236 activity - mobilize patient (nj,ms) Signature: Pascale Swartz MD Internal Medicine PGY-1 Note: These recommendations are not final until staffed by provider. ATTENDING PHYSICIAN: Patient seen and evaluated today Mendoza elements of history and physical examination of the patient were confirmed. The assessment and plan were formulated and discussed with the team on Rounds. I reviewed the resident's note, examined the patient and agree with the documented findings and plan of care. End-stage renal disease on hemodialysis History of mitral valve replacement with mechanical valve needing anticoagulation History of atrial fibrillation with Maze procedure and RADHA clip and chronic chest wounds that have high potential of bleeding Since INR is not therapeutic at 1.9 -we will start on heparin drip and if INR is therapeutic tomorrow consider discharge Plan of care discussed with: Provider, RN, Patient, Pharmacist, and residents and medical. Rivas Solitario MD [facility] [phone] GAS + CO PNL BLDV Collected: 5 2:23 AM Status: F Source: [facility] Order Comment: Specimen Type : VENOUS BLOOD SPECIMEN Ordering Facility: [facility] Address: [address] [place] [address] TYPE CODE TESTS RESULT OUT OF RANGE REFERENCE UNITS LAB 2746-6(LOINC) pH BldV 7.38 7.32-7.42 LAB 38784-8(LOINC) pH temp adj BldV 7.39 7.32-7.42 LAB 202-4(LOINC) pCO2 BldV 52 42-55 mmHg LAB 36648-2(LOINC) pCO2 temp adj BldV 52 42-55 mmHg LAB 2705-2(LOINC) pO2 BldV 24 Low 35-45 mmHg LAB 99170-7(LOINC) pO2 temp adj BldV 24 Low 35-45 mmHg LAB 2711-0(LOINC) SaO2 % BldV 34 Low 60-85 % LAB 1927-3(LOINC) Base excess BldV Calc-sCnc 5 High 0-2 mmol/L LAB 81637-4(LOINC) HCO3 BldV-sCnc 31 High 24-28 mmol/L LAB 2716-9(LOINC) OxyHgb MFr BldV 33 Low 60-85 % LAB 2032-1(LOINC) COHgb MFr BldV 0.9 0.0-2.0 % Result Comment: Carboxyhemog lobin Reference Range for Smokers: 2.0-8.0% LAB 2614-6(LOINC) MetHgb MFr Bld 0.9 0.0-1.5 % LAB 2947-0(LOINC) Sodium Bld-sCnc 140 136-144 mmol/L LAB 6298-4(LOINC) Potassium Bld-sCnc 5.5 High 3.5-5.0 mmol/L LAB 78155-4(LOINC) Ca-I Bld-mCnc 1.04 Low 1.08-1.30 m mol/L LAB 73089-1([facility]) Ca-I adj pH7.4 BldA-sCnc 1.03 Low 1.08-1.30 mmol/L LAB 2339-0([facility]) Glucose Bld-mCnc 92 60-105 mg/dL LAB 01578-7([facility]) Lactate Bld-sCnc 1.6 0.5-2.2 mmol/L LAB 718-7([facility]) Hgb Bld-mCnc 8.2 Low 13.0-17.0 g/dL LAB 4544-3([facility]) Hct VFr Bld Auto 25.5 Low 39.0-51.0 % LAB VTMP TEMPERATURE, BODY 36.7 C LAB VO2TH O2 THERAPY RA=Room Air Performed By: #### [id number] # ### [facility] CLIA [id number] [address] [place] [address] CASE MANAGEM Observed: 05/25/2025 2:56 PM Status: COMPLETED Source: [facility] HNO ID: [id number] Author: JUVE BUCHANAN RN Service: Care Management Author Type: Registered Nurse Type: Care Mgt Progress Note Filed: 05/25/2025 15:06 Note Text: CARE MANAGEMENT PROGRESS NOTE SERVICE DATE: 05/25/2025 SERVICE TIME: 2:56 PM LOS: 34 days Post-Acute Discharge Planning Patient Goal(s): General wellness, Be able to go home Anticipated # of Days Until Discharge: , Fri vs Transport at Discharge: Pt to drive himself home Needs Prior to Discharge: Needs Prior to Discharge: To Be Determined Post-Acute Discharge Plan: Pt in need of home care SN (wound care) PT/OT. Pt is not active with PCP. [facility] home care will be able to take patient after his appt with new PCP 06/[address] Pablo Vang, she said she would follow his C and weekly INR checks. Pt will need to go to outpatient clinic until then. [facility] Roach will follow. Community Dialysis Chair confirmed with CC Dialysis coordinator, she will send facility the required paperwork (since patient has been admitted for so long) [facility] Najma Melendez via right double lumen IJ SIGNATURE: Juve Buchanan RN PATIENT NAME: Elia Weston DATE: May 25, 2025 TIME: 2:56 PM PROGRESS Observed: 05/25/2025 12:29 PM Status: COMPLETED Source: [facility] HNO ID: [id number] Author: BEULAH RAMEY MD Service: General Internal Medicine Author Type: Physician Type: Progress Notes Filed: 05/25/2025 12:40 Note Text: [facility] ([facility] STAFF PHYSICIAN NOTE OF PERSONAL INVOLVEMENT IN CARE I have reviewed the note documented by the resident and I personally participated in the mendoza components. I have discussed the case and management of the patient's care. The following comments revise or confirm relevant mendoza components of the note. 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 He was seen by Vascular surgery in Oct 23: [facility] Sx recs: 1. 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 Continued dialysis through his catheter indefinitely 3. No need for further follow-up with Vascular Surgery wounds. Patient presented to the ED on 04/20/2025 with complaints of bleeding from his wounds in the back and chest. On admission he had high INR and bleeding from wounds. INR was reversed. Underwent balloon angioplasty of R innominate vein stenosis and R TDC exchange on 04/29 with vascular surgery. Course was complicated by re bleeding (05/07 and 05/17). Dosing coumadin has been difficult because of erratic INR and bleeding episodes. Course was also complicated by prolonged DE (worsening) for which he was seen by EP and underwent leadless pacemaker placement on 05/23/25. YONATHAN done on 05/18 showed: The left ventricle is normal in size. There is mild left ventricular hypertrophy. Left ventricular systolic function is normal. EF = 60 ? 5% (visual est.) - The right ventricle is normal in size. Right ventricular systolic function is normal. - The left atrial cavity is dilated. - The right atrial cavity is dilated. - Post mitral valve replacement. On-X prosthetic mitral valve (size #25). - No echocardiographic evidence of endocarditis There is trace (trace - 1+) mitral valve regurgitation. - There is moderate (2+) tricuspid valve regurgitation. - The patient has not had a prior CC echocardiographic exam for comparison. 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 # Acute on chronic blood loss anemia # Lactic acidosis due to hypovolemia (on admission: Resolved) # ESRD on longstanding hemodialysis with very poor dialysis access # Secondary hyperparathyroidism with hyperphosphatemia # Mechanical MV placement with INR goal 2.5-3.5 Plan for today: Bleeding from chest wall and back wounds: Stopped, Hg stable Continue vitamin C Mechanical MV: On Coumadin , his INR is 2.2 today, continue coumadin ESRD: On HD, through Rt TDC (Exchanged on 04/29/25) Continue Renvela for Phos binding, Continue Aranesp for anemia of renal disease Continue Sensipar for secondary hyperparathyroidism Chronic Hypotension: On Midodrine Disposition: Will be discharged home with home health care, Coumadin clinic referral has been sent. This note may contain elements from previous notes and elements copied from other sources in patient's Epic record for cohesive documentation. All elements have been reviewed by me today to ensure accuracy and have been updated to reflect relevant clinical elements as well as updated assessment and plan. This note may also be in part produced with the aid of voice-recognition technology. While every attempt is made to correct any typographical errors during dictation, errors may still exist. Beulah Ramey MD, MEd, FACP Staff, Dept. Of Hospital Medicine PAGER - [phone] CONSULT PROG Observed: 05/25/2025 11:10 AM Status: COMPLETED Source: [facility] HNO ID: [id number] Author: GIBSON ABBOTT APRN.MIKI Service: Nephrology Author Type: Nurse Practitioner Type: Consult Progress Note Filed: 05/25/2025 11:14 Note Text: CONSULT PROGRESS NOTE NEPHROLOGY Q6 SERVICE SERVICE DATE: 05/25/2025 SERVICE TIME: 11:10 AM SUBJECTIVE INTERVAL HISTORY: -Patient seen on dialysis, single evaluation. Orders confirmed and documented per LEONEL. -System clotted fdc into treatment, heparin has been held due to bleeding concerns. Now with bleeding concerns resolved will add heparin to HD circuit -Otherwise resting comfortable, talking on the phone with no current complaints. MEDICATIONS: Current Facility-Administered Medications Medication Dose Route Frequency NaCl 0.9% iv flush bag 20 mL INTRAVENOUS PRN acetaminophen 650 mg tab(s) (TYLENOL) 650 mg ORAL q 6 H PRN aspirin 81 mg chewable tab(s) 81 mg ORAL DAILY midodrine 20 mg tab(s) (PROAMATINE) 20 mg ORAL q 8 H sevelamer carbonate 800 mg tab(s) (RENVELA) 800 mg ORAL TID w MEALS calcitriol 1.5 mcg cap(s) (ROCALTROL) 1.5 mcg ORAL MO-WE-FR fentaNYL 50 mcg/mL 25 mcg injection (SUBLIMAZE) 25 mcg INTRAVENOUS DAILY PRN warfarin order for discharge OTHER PRN ascorbic acid 500 mg chewable tab(s) 500 mg ORAL DAILY pyridoxine (vitamin B6) 50 mg tab(s) (VITAMIN B6) 50 mg ORAL DAILY vitamin A 10,000 Units cap(s) (AQUASOL A) 10,000 Units ORAL DAILY fentaNYL 50 mcg/mL 50 mcg injection (SUBLIMAZE) 50 mcg INTRAVENOUS DAILY PRN melatonin 3 mg tab(s) 3 mg ORAL/FEEDING TUBE AT BEDTIME PRN Darbepoetin [place] In Polysorbat 60 mcg injection (ARANESP) 60 mcg SUBCUTANEOUS q Wed oxyCODONE IR 15 mg tab(s) (ROXICODONE) 15 mg ORAL q 4 H PRN busPIRone 5 mg tab(s) (BUSPAR) 5 mg ORAL DAILY diazePAM 2.5 mg injection (VALIUM) 2.5 mg INTRAVENOUS BID PRN senna 17.2 mg tab(s) (SENOKOT) 17.2 mg ORAL/FEEDING TUBE BID polyethylene glycol 3350 17 g packet 17 g ORAL BID cinacalcet 30 mg tab(s) (SENSIPAR) 30 mg ORAL DAILY dextrose 15 gram/32 mL 15 g (TRUEPLUS) 15 g ORAL PRN Or glucagon 1 mg injection 1 mg INTRAMUSCULAR PRN Or dextrose 10% iv bolus 12.5 g INTRAVENOUS PRN bisacodyl EC 10 mg tab(s) (DULCOLAX) 10 mg ORAL BID OBJECTIVE PHYSICAL EXAM: BP (!) 92/42 Pulse 93 Temp 36.5 ?C (97.7 ?F) (Oral) Resp 18 Ht 177 cm (5' 9.69) Wt 118.7 kg (261 lb 11 oz) SpO2 92% BMI 37.89 kg/m? Intake/Output Summary (Last 24 hours) at 05/25/2025 1110 Last data filed at 05/24/2025 1750 Gross per 24 hour Intake -- Output 2800 ml Net -2800 ml Constitutional:No acute distress, awake, alert and responsive Cardiovascular:Regular rate and rhythm 1+ BLE edema Respiratory:Normal respiratory effort on RA Abdomen:Soft, non-tender, non-distended Psychiatric: Alert and oriented x self, place, time, and setting Normal mood/affect Vascular Access: Hemodialysis catheter location: Right Tunneled internal jugular. Exit site demonstrates: normal findings DATA: Diagnostic tests reviewed for today's visit: Recent Labs 05/24/25 1640 05/24/25 0711 05/23/25 0725 05/22/25 0905 05/21/25 0414 NA 142 135* 140 137 137 K 5.3* 6.3* 5.7* 5.2* 4.6 CHLOR 93* 95* 98 99 97* CO2 27 BUN 23 20 25* 17 10 CREAT 5.99* 5.45* 7.96* 6.72* 4.64* GLUC 92 105* 84 76 92 ANION 22* 15 17* 15 13 CA 7.8* 7.6* 7.2* 7.8* 8.1* P -- -- 4.3 -- -- Recent Labs 05/25/25 1015 05/24/25 0711 05/23/25 0725 WBC 5.43 3.71 4.56 HB 7.8* 8.0* 7.9* HCT 25.5* 27.0* 26.1* PLT 165 201 202 ASSESSMENT: Mr. 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 Labs on presentation significant for elevated lactic acid, leukocytosis, anemia and supratherapeutic INR. Of note, his previous admission 10/12/2024-11/02/2024 was also for pain and bleeding of the wounds/skin ulcers. Biopsy was consistent with reactive ischemic changes at the time without features of Polyderma Gangrenosum or calciphylaxis. Patient was admitted under general internal medicine team for further management. Course c/b new 2nd degree AV shantell, mobitz type 1. Plan for pacemaker 05/23 Nephrology consulted for ESR management. 1.ESRD -Etiology: HTN Renal Biopsy 2005 for renal failure of undetermined etiology. All of the glomeruli examined are obliterated by total global sclerosis -Date of first HD: 2005 -Current HD unit: [facility] -Configuration Release Manager: Dr Melendez -Schedule: Fri-Fri-Fri -Time: 4.5 hrs -EDW: 114 kg -Date of last outpatient dialysis: 04/18/25 -Access: R IJ TDC 04/29/2025 s/p S/p / venogram , Right innominate vein stenosis was dilated to 8 mm using an angioplasty balloon per IR 2.Electrolytes/acid-base: -Hyperkalemia 3.Hypertension/Volume Status: -BP 166/70 -Midodrine 20mg q8h -Pre-weight: 114.7kg EDW: 114kg -Targeting 2L UF with crit line assist -Hypervolemia 4.Anemia of CKD: -Hgb below ESRD goal -Iron Stores: ferritin 996 TSAT 15.4- deferring IV iron with IE work up -ANABELLA: Weekly Aranesp 5.Secondary renal hyperparathyroidism: -Calcitriol 1.5mcg TIW, Sensipar 30mg daily, Revela 800mg TID with meals -PTH 578--> 181 PLAN: -IHD today 4.5 hours, 2K bath, 2L UF -Next IHD Friday -EDW 114kg -Weekly Aranesp Standard ESRD recommendations and precautions: - Strict IANDOs and Daily weight - Consider a RENAL Diet for HD patients - Fluid restriction < 1 L - Start Nephrocap or other renal multivitamin to replace water-soluble vitamins lost during dialysis - Avoid Lovenox, Gadolinium (MRI contrast), Demerol, Morphine, K-containing IVF, Mg- or Phos- containing enemas -Dose meds eGFR<10 Outpatient dialysis disposition plan: contact [phone] and ask to speak with the director of front office as needed for assistance with post-discharge arrangements. Please DO NOT schedule patient for a nephrology follow up appointment. Kidney care will be provided by the primary data warehousing engineer at their dialysis unit upon hospital discharge. Disclosures: Parts of the current progress note may have been copied from a previous note. SIGNATURE: Gibson Abbott APRN.CNP PATIENT NAME: Elia Weston DATE: May 25, 2025 TIME: 11:10 AM PAGER: [phone] FOR AFTER HOUR CONCERNS BETWEEN 5PM - 7AM CONTACT ON-CALL NEPHROLOGY FELLOW PT PNL PPP Collected: 5 10:15 AM Status: F Source: [facility] Order Comment: Specimen Type : BLOOD SPECIMEN Ordering Facility: [facility] Address: [address] [place] [address] TYPE CODE TESTS RESULT OUT OF RANGE REFERENCE UNITS LAB 5902-2(LOINC) Prothrombin time 23.0 High 9.7-13.0 sec LAB 6301-6(LOINC) INR PPP 2.2 High 0.9-1.3 Result Comment: Vitamin K An tagonist (VKA) Therapeutic Range: INR 2 to 3 (Target INR of 2.5) Note: For patients treated with VKA drugs, such as warfarin, the [place] [employer] 2012 Guideline recommends a therapeutic INR range of 2 to 3 (target INR of 2.5). This recommendation includes high-risk patients with antiphospholipid syndrome with previous arterial or venous thromboembolism, current-generation mechanical or bioprosthetic aortic heart valve replacement. Note: Patients with mechanical aortic valve replacement and additional risk factors for thromboembolic events (atrial fibrillation, previous thromboembolism, LV dysfunction, hypercoagulable conditions) or an older generation mechanical AVR (i.e., ball in-Cage) or any mechanical MVR should have a INR therapeutic range of 2.5 to 3.5 (target INR of 3). Ranjit GH, et al. Chest 2012, 141:7S-47S Kevin RA, et al. [facility] 2017, 70: 252-289 Performed By: #### [id number] # ### [facility] CLIA [id number] [address] [place] [address] STATES OF [facility] CBC PNL BLD AUTO Collected: 5 10:15 AM Status: F Source: [facility] Order Comment: Specimen Type : BLOOD SPECIMEN Ordering Facility: [facility] Address: [address] [place] [address] TYPE CODE TESTS RESULT OUT OF RANGE REFERENCE UNITS LAB 6690-2(LOINC) WBC # Bld Auto 5.43 3.70-11.00 k/uL LAB 789-8(LOINC) RBC # Bld Auto 2.65 Low 4.20-6.00 m/uL LAB 718-7(LOINC) Hgb Bld-mCnc 7.8 Low 13.0-17.0 g/dL LAB 4544-3(LOINC) Hct VFr Bld Auto 25.5 Low 39.0-51.0 % LAB 787-2(LOINC) MCV RBC Auto 96.2 80.0-100.0 fL LAB 785-6(LOINC) MCH RBC Qn Auto 29.4 26.0-34.0 pg LAB 786-4(LOINC) MCHC RBC Auto-mCnc 30.6 30.5-36.0 g/dL LAB 51329-3(LOINC) RDW RBC-Rto 18.4 High 11.5-15.0 % LAB 777-3(LOINC) Platelet # Bld Auto 165 150-400 k/uL LAB 15405-3(LOINC) PMV Bld Auto 10.7 9.0-12.7 fL LAB 771-6(LOINC) nRBC # Bld Auto <0.01 <0.01 k/uL Performed By: #### 27106-4 # ### [facility] CLIA [id number] [address] [place] [address] OF [facility] NURSING PROG Observed: 05/25/2025 6:02 AM Status: COMPLETED Source: [facility] HNO ID: [id number] Author: TONY MOSQUEDA RN Service: Nursing Author Type: Registered Nurse Type: Nursing Progress Note Filed: 05/25/2025 06:03 Note Text: Report given to dialysis. Estimated time of procedure is around 630am. CNPN Observed: 05/25/2025 12:00 AM Status: COMPLETED Source: [facility] Telephone (PHARMN) ELIA WESTON ([id number]) 1980 [facility] Date Time Provider Department 05/25/25 PHARMACIST PHARMN During your visit today, we recorded the following information about you: Krystal Nieves RN 05/25/2025 9:55 AM Signed Pharmacy Anticoagulation Clinic received a new referral that is incomplete. Please place an outpatient referral (order #[id number]) and include the name of the staff [facility] physician who will be following the patient as outpatient, the diagnosis, target INR range, and duration. Thank you, Divya Nieves RN Pharmacy Care Antico[facility] Krystal Nieves RN 05/25/2025 3:25 PM Signed PAC received a new referral for the patient. Patient will be contacted once discharged home. Divya Nieves RN Pharmacy Anticoagulation Clinic Krystal Nieves RN 05/27/2025 12:32 PM Signed Patient remains inpatient. Divya Nieves RN Pharmacy Anticoagulation Clinic Krystal Nieves RN 05/31/2025 9:49 AM Signed Patient is currently at the ED. PAC will monitor for discharge. Divya Nieves RN Pharmacy Anticoagulation Clinic Krystal Nieves RN 06/01/2025 11:05 AM Signed Patient is currently inpatient. PAC will continue to monitor. Divya Nieves RN Pharmacy Anticoagulation Clinic Krystal Nieves RN 06/03/2025 9:06 AM Signed Patient remains inpatient. Divya Nieves RN Pharmacy Anticoagulation Clinic Krystal Nieves RN 06/09/2025 12:06 PM Signed New Referral Contact: Pharmacist Anticoagulation Clinic The patient was called to discuss recent referral to the Anticoagulation Clinic. Mode of contact: cell phone Referral date: 06/03 Referring physician: Pablo Vang Indication: MVR; referral indicates AVR but not noted in episodes. Patient has has h/c Afib; stroke Goal INR: 2.5-3.5 The expected duration of therapy is Indefinite Preferred location for visits: [facility] Warfarin start date: 2020 Patient was previously instructed to take warfarin: 5mg SunThurs/4mg all other days Parenteral 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: No PT INR (no units) Date Value 11/08/2021 1.4 09/27/2021 5.5 09/20/2021 3.3 INR (no units) Date Value 06/08/2025 3.0 06/07/2025 3.2 06/06/2025 3.4 Hemoglobin (g/dL) Date Value 06/08/2025 8.2 11/08/2021 14.1 Hematocrit (%) Date Value 06/08/2025 26.5 11/08/2021 46.5 WBC (k/uL) Date Value 06/08/2025 4.38 11/08/2021 6.92 A/P: Spoke to patient. The patient: DOES agree to INR testing and consult agreement Patient scheduled for next INR Lab INR on this date: 06/09. Patient scheduled for POCT/[facility] Ed at [facility] on this date: TBD based on INR result. Patient declines the warfarin education video. Mode of learning: not new to warfarin Next Action for Anticoag Management: Lab RACHEL Shelbynallie, Krystal M, RN 06/09/2025 12:[address] Vang, Thank you for referring Elia Weston to the Anticoagulation Clinic for follow up. A pharmacist will see your patient for fingerstick INR testing and counseling. Please note: if at any time your patient does not agree to follow our recommendations for follow up care for managing their INR via POCT, home INR meter, or lab, they may be discharged back to your service for follow up. By this referral, we will be following your patient under the consult agreement policy between the Department of Pharmacy and member of the [facility]. Under this policy, you agree to maintain a clinical relationship with the patient as defined by Medicare as seeing the patient at least once a year in the outpatient setting. Our pharmacists will monitor your patient's anticoagulation therapy, adjust doses, order labs and prescriptions for warfarin/enoxaparin/Vitamin K as appropriate, and bill for our visits and lab tests listing you as the responsible referring physician. If for any reason you do not wish to continue working under this collaborative practice agreement or if the patient no longer continues in your care, please contact us to discontinue this service. Thank you for your referral, Anticoagulation Management Services Samra Carrillo [facility] 06/09/2025 12:19 PM Signed I have read and agree with note below. Samra Carrillo [facility] 06/09/2025 4:47 PM Signed No INR available or in process. Patient has dosing for today. Zaria Segundo RP 06/10/2025 12:57 PM Signed Called and stp. Pt states he has a parts delivery driver in [place] who can manage his INRs but he prefers [facility]. Advised pt of available [place] [facility] labs, pt states the [facility] is close by. Advised him of hours (closes at 5pm today). He will go in today after dialysis. Advised pt to continue same warfarin dose and PAC will call tomorrow AM with finally results and dosing. Pt also advised he is est with [facility] physician in [place] next 06/17. Sophie Haq Chris [facility] 06/11/2025 11:50 AM Signed Called and unable to reach patient via telephone. No INR in process. 911 Pets message sent as a reminder to test INR ERLINDA. Dosing sent until 06/13. Anna Smith Shannon, RPh 06/13/2025 9:48 AM Signed Called pt regarding no INR in process. Patient stated he will go to the lab today. Pt requested a refill on his 4mg Coumadin tablets. Patient stated he has been taking 5mg of Coumadin on Thur and Fri and 4mg all other days. The following approved medication requests have been transmitted electronically. Requested Prescriptions Signed Prescriptions Disp Refills warfarin (COUMADIN) 4 mg tablet 30 tablet 3 Sig: Take 1 tablet by mouth once daily. 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 - warfarin (COUMADIN) 4 mg tablet Take 1 tablet by mouth every Wuhjeo-Bsinrmu-Ckpksmuxv-Friday-Friday - Cinacalcet HCl (SENSIPAR) 30 mg tablet Take 1 tablet by mouth once daily. - sevelamer carbonate (RENVELA) 800 mg tablet Take 1 tablet by mouth three times a day with meals. - busPIRone (BUSPAR) 5 mg tablet Take 1 tablet by mouth once daily. - bisacodyl EC (DULCOLAX) 5 mg EC tablet Take 2 tablets by mouth two times a day. - pyridoxine, vitamin B6, (VITAMIN B6) 50 mg tablet Take 1 tablet by mouth once daily. - vitamin A (AQUASOL A) 10,000 unit capsule Take 1 capsule by mouth once daily. - ascorbic acid 500 mg chew Take 1 tablet by mouth once daily. - aspirin 81 mg chewable tablet Take 81 mg by mouth. - melatonin 3 mg tablet Take 3 tablets by mouth daily at bedtime. - calcitriol (ROCALTROL) 0.5 mcg capsule Take 3 capsules by mouth every Friday, Friday, and Friday. - Darbepoetin Osito In Polysorbat (ARANESP) 60 mcg/0.3 mL syrg Inject 0.3 mL subcutaneously every Friday. - polyethylene glycol 3350 (MIRALAX) 17 gram packet Take 1 Packet by mouth once daily. Dissolve dose in 4 - 8 ounces of liquid and take as directed. - oxyCODONE IR (ROXICODONE) 10 mg tab Take 10 mg by mouth every 8 hours as needed for pain. - B Complex-Vitamin C-Folic Acid (JOHNSON-BRENDA) 0.8 mg tab Take 1 tablet by mouth once daily. - midodrine (PROAMATINE) 10 mg tablet Take 2 tablets by mouth every 8 hours. Problem List As Of Date 05/25/2025 Noted Resolved ESRD (end stage renal disease) on dialysis ([facility]*10/16/2012 HTN (hypertension) [I10] 10/16/2012 Obesity [E66.9] 11/02/2012 Epigastric pain [R10.13] 11/02/2012 Mechanical complication of other vascular devic*02/12/2013 Right knee pain [M25.561] 07/29/2013 Obesity, morbid, BMI 40.0-49.9 ([facility]) [E66.01] 02/22/2014 Tendinitis of left shoulder [M77.8] 02/22/2014 Mass of left thigh [R22.42] 09/08/2014 Thigh pain [M79.659] 09/08/2014 Hematuria [R31.9] 12/08/2014 Dialysis patient ([facility]) [Z99.2] 12/08/2014 YEIMY (obstructive sleep apnea) [G47.33] 05/09/2015 Abdominal or pelvic swelling, mass, or lump, ri*05/09/2015 Secondary hyperparathyroidism, renal (HCC) [N25*05/09/2015 Renal osteodystrophy [N25.0] 05/09/2015 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*05/09/2015 Groin pain [R10.30] 05/09/2015 Personal history of DVT (deep vein thrombosis) *03/28/2016 Sprain of medial collateral ligament of right k*04/22/2016 ESRD (end stage renal disease) ([facility]) [N18.6] 04/21/2019 PAF (paroxysmal atrial fibrillation) ([facility]) [I48*12/02/2018 A-V fistula ([facility]) [I77.0] 04/23/2019 Anemia of chronic disease [D63.8] 04/23/2019 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] 05/18/2021 ESRD on hemodialysis ([facility]) [N18.6, Z99.2] 04/07/2019 Expressive dysphasia [R47.02] 08/01/2021 History of endocarditis [Z86.79] 08/01/2021 Hearing loss [H91.90] 02/17/2018 History of non-ST elevation myocardial infarcti*11/08/2019 Heart failure, unspecified ([facility]) [I50.9] 08/05/2011 Iron deficiency anemia, unspecified [D50.9] 05/31/2008 Chronic anticoagulation [Z79.01] 08/01/2021 Mitral valve disease [I05.9] 08/01/2021 Myocardial infarction ([facility]) [I21.9] 08/01/2021 Noncompliance with medication regimen [Z91.148] 08/01/2021 Paroxysmal atrial flutter ([facility]) [I48.92] 08/01/2021 Pulmonary embolism ([facility]) [I26.99] 08/01/2021 Pulmonary edema [J81.1] 08/01/2021 Stenosis of other vascular prosthetic devices, *05/22/2021 Unspecified atherosclerosis of [place] arteries *10/30/2013 Vitamin D deficiency [E55.9] 10/16/2020 Hypervolemia [E87.70] 08/01/2021 09/04/2021 Open wound of right side of back [S21.201A] 08/01/2021 History of stroke [Z86.73] 08/01/2021 Hypotension, chronic [I95.89] 08/01/2021 Falls [R29.6] 08/01/2021 Mitral valve stenosis, severe [I05.0] 08/03/2021 Mitral stenosis [I05.0] 08/03/2021 Obesity, Class II, BMI 35-39.9 [E66.812] 08/04/2021 Discharge planning issues [Z75.8] 08/17/2021 08/31/2021 Dental caries [K02.9] 08/19/2021 Pain, postoperative, acute [G89.18] 08/21/2021 08/29/2021 Coagulopathy (HCC) [D68.9] 08/21/2021 08/22/2021 S/P MVR (mitral valve replacement) [Z95.2] 08/22/2021 Acute pulmonary edema (HCC) [J81.0] 08/25/2021 08/31/2021 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]08/25/2021 CHB (complete heart block) (HCC) [I44.2] 08/29/2021 Encounter for support and coordination of trans*08/31/2021 Abdominal pain [R10.9] 09/28/2022 Nausea and vomiting [R11.2] 09/28/2022 09/30/2022 Near syncope [R55] 09/28/2022 Acute colitis [K52.9] 09/29/2022 Supratherapeutic INR [R79.1] 09/30/2022 Anemia of chronic disorder [D63.8] 06/12/2023 Atrial fibrillation (HCC) [I48.91] 12/02/2018 Essential hypertension, benign [I10] 1998 Abdominal wall skin ulcer, with unspecified sev*06/24/2023 Acute on chronic blood loss anemia [D62] 06/24/2023 Melena [K92.1] 06/24/2023 Hypotension [I95.9] 06/24/2023 Adjustment disorder with depressed mood [F43.21]06/27/2023 Hyperkalemia [E87.5] 06/30/2023 Hyponatremia [E87.1] 06/30/2023 Metabolic acidosis [E87.20] 06/30/2023 Anemia of renal disease [N18.9, D63.1] 06/30/2023 Skin pain [R20.8] 06/30/2023 Bleeding ulcer [K28.4] 06/30/2023 MSSA bacteremia [R78.81, B95.61] 07/01/2023 Proximal colon ulcer [K63.3] 07/02/2023 Aftercare for long-term (current) use of antibi*07/02/2023 Anemia due to chronic kidney disease, on chroni*07/02/2023 Mild protein-calorie malnutrition (HCC) [E44.1] 08/31/2023 Acquired hypothyroidism [E03.9] 03/17/2024 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 *03/18/2024 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] 03/18/2024 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] 03/18/2024 At risk for alteration in skin integrity based *03/20/2024 Venous collateral circulation [I99.8] 03/21/2024 Hypothyroidism [E03.9] 03/21/2024 H/O mitral valve replacement with mechanical va*03/21/2024 Hypocalcemia due to chronic kidney disease [E83*03/25/2024 Chronic pain syndrome [G89.4] 03/28/2024 Uremia [N19] 04/22/2024 Jugular vein occlusion, 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*04/22/2024 Arteriovenous graft stenosis, sequela [T82.858S]04/22/2024 Open abdominal wall wound [S31.109A] 04/23/2024 Anemia due to stage 5 chronic kidney disease, n*10/13/2024 Status post Maze operation for atrial fibrillat*10/13/2024 Ulcers, venous (HCC) [I83.009, L97.909] 10/13/2024 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] 10/14/2024 11/02/2024 Generalized weakness [R53.1] 10/15/2024 Impaired functional mobility, balance, gait, an*10/15/2024 Ischemic ulcer with fat layer exposed (HCC) [L9*10/21/2024 Gastroesophageal reflux disease without esophag*11/03/2024 Secondary hyperparathyroidism (HCC) [N25.81] 11/03/2024 Anemia in chronic kidney disease (CODE) [D63.1] 11/03/2024 Wounds, multiple [T07.XXXA] 04/21/2025 Anemia due to multiple mechanisms [D64.89] 04/21/2025 Hemorrhage from open wound of left chest wall [*04/21/2025 Bleeding from open wound of chest wall, right, *04/21/2025 Open chest wound, right, sequela [S21.101S] 04/22/2025 Open chest wound, left, sequela [S21.102S] 04/22/2025 Back wound, unspecified laterality, sequela [S2*04/22/2025 Open wound of abdomen [S31.109A] 04/22/2025 Open wound of right thigh [S71.101A] 04/22/2025 Bleeding from wound [T14.8XXA] 04/23/2025 Difficult intravenous access [Z78.9] 04/24/2025 Hypervolemia [E87.70] 04/25/2025 Skin ulcers (HCC) [L98.499] 04/27/2025 Vitamin C deficiency [E54] 05/03/2025 Vitamin A deficiency [E50.9] 05/03/2025 Vitamin B6 deficiency [E53.1] 05/03/2025 Second degree AV block, Mobitz type I [I44.1] 05/06/2025 Impaired skin integrity [R23.9] 05/19/2025 History of mitral valve replacement with mechan*05/25/2025 Prescriptions ordered this encounter Disp Refills Start End WARFARIN 4 MG TABLET 30 t* 3 06/13/2025 Cmt: [facility]ticoagulation [facility] [phone] Route: PO Sig: Take 1 tablet by mouth once daily. Medications Discontinued During This Encounter Prescriptions - warfarin (COUMADIN) 5 mg tablet (Discontinued) Take 1 tablet by mouth every and Friday Patient should start on June 09, 2025. Encounter Status:Closed by KRYSTAL NIEVES on 06/09/25 BAS METAB 2000 PNL SERPL Collected: 4:40 PM Status: F Source: [facility] Order Comment: Specimen Type : BLOOD SPECIMEN Ordering Facility: [facility] Address: [place] [address] TYPE CODE TESTS RESULT OUT OF RANGE REFERENCE UNITS LAB 2345-7(LOINC) Glucose SerPl-mCnc 92 74-99 mg/dL Result Comment: The [place] Diabetes Association (ADA) provides guidance for cutoff values for fasting glucose and random glucose. The ADA defines fasting as no caloric intake for at least 8 hours. Fasting plasma glucose results between 100 to 125 mg/dL indicate increased risk for diabetes (prediabetes). Fasting plasma glucose results greater than or equal to 126 mg/dL meet the criteria for diagnosis of diabetes. In the absence of unequivocal hyperglycemia, results should be confirmed by repeat testing. In a patient with classic symptoms of hyperglycemia or hyperglycemic crisis, random plasma glucose results greater than or equal to 200 mg/dL meet the criteria for diagnosis of diabetes. Reference: Standards of Medical Care in Diabetes 2016, [place] Diabetes Association. Diabetes Care. 2016.39(Suppl 1). LAB 3094-0(LOINC) BUN SerPl-mCnc 23 9-24 mg/dL LAB 2160-0(LOINC) Creat SerPl-mCnc 5.99 High 0.73-1.22 mg/dL LAB 2951-2(LOINC) Sodium SerPl-sCnc 142 136-144 mmol/L LAB 2823-3(LOINC) Potassium SerPl-sCnc 5.3 High 3.7-5.1 mmol/L LAB 2075-0(LOINC) Chloride SerPl-sCnc 93 Low 98-107 mmol/L LAB 2027-9(LOINC) CO2 SerPl-sCnc 27 22-30 mmol/L LAB 21286-5(LOINC) Anion Gap SerPl-sCnc 22 High 8-15 mmol/L LAB 03494-8(LOINC) Calcium SerPl-mCnc 7.8 Low 8.5-10.2 mg/dL LAB 01992-3(LOINC) eGFRcr SerPlBld CKD-EPI 2020 11 Low >=60 mL/min/1. 73m??? Result Comment: Estimated Gl omerular Filtration Rate (eGFR) is calculated using the 2020 CKD-EPI creatinine equation. This equation utilizes serum creatinine, sex, and age as parameters. The creatinine assay has traceable calibration to isotope dilution-mass spectrometry. Refer to KDIGO guidelines for clinical interpretation. In patients with unstable renal function, e.g. those with acute kidney injury, the eGFR may not accurately reflect actual GFR. Performed By: #### [id number] # ### [facility] CLIA [id number] [address] [place] [address] [place] CONSULT PROG Observed: 05/24/2025 3:31 PM Status: COMPLETED Source: [facility] HNO ID: [id number] Author: GIBSON ABBOTT APRN.FLORAL ASSOCIATE Service: Nephrology Author Type: Nurse Practitioner Type: Consult Progress Note Filed: 05/24/2025 15:36 Note Text: CONSULT PROGRESS NOTE NEPHROLOGY Q6 SERVICE SERVICE DATE: 05/24/2025 SERVICE TIME: 3:32 PM SUBJECTIVE INTERVAL HISTORY: -Patient seen on dialysis, single evaluation. Orders confirmed and documented per LEONEL. -Added for extra IHD today due to hyperkalemia MEDICATIONS: Current Facility-Administered Medications Medication Dose Route Frequency NaCl 0.9% iv flush bag 20 mL INTRAVENOUS PRN acetaminophen 650 mg tab(s) (TYLENOL) 650 mg ORAL q 6 H PRN aspirin 81 mg chewable tab(s) 81 mg ORAL DAILY midodrine 20 mg tab(s) (PROAMATINE) 20 mg ORAL q 8 H sevelamer carbonate 800 mg tab(s) (RENVELA) 800 mg ORAL TID w MEALS calcitriol 1.5 mcg cap(s) (ROCALTROL) 1.5 mcg ORAL MO-WE- fentaNYL 50 mcg/mL 25 mcg injection (SUBLIMAZE) 25 mcg INTRAVENOUS DAILY PRN warfarin order for discharge OTHER PRN ascorbic acid 500 mg chewable tab(s) 500 mg ORAL DAILY pyridoxine (vitamin B6) 50 mg tab(s) (VITAMIN B6) 50 mg ORAL DAILY vitamin A 10,000 Units cap(s) (AQUASOL A) 10,000 Units ORAL DAILY fentaNYL 50 mcg/mL 50 mcg injection (SUBLIMAZE) 50 mcg INTRAVENOUS DAILY PRN melatonin 3 mg tab(s) 3 mg ORAL/FEEDING TUBE AT BEDTIME PRN Darbepoetin Osito In Polysorbat 60 mcg injection (ARANESP) 60 mcg SUBCUTANEOUS q Wed oxyCODONE IR 15 mg tab(s) (ROXICODONE) 15 mg ORAL q 4 H PRN busPIRone 5 mg tab(s) (BUSPAR) 5 mg ORAL DAILY diazePAM 2.5 mg injection (VALIUM) 2.5 mg INTRAVENOUS BID PRN senna 17.2 mg tab(s) (SENOKOT) 17.2 mg ORAL/FEEDING TUBE BID polyethylene glycol 3350 17 g packet 17 g ORAL BID cinacalcet 30 mg tab(s) (SENSIPAR) 30 mg ORAL DAILY dextrose 15 gram/32 mL 15 g (TRUEPLUS) 15 g ORAL PRN Or glucagon 1 mg injection 1 mg INTRAMUSCULAR PRN Or dextrose 10% iv bolus 12.5 g INTRAVENOUS PRN warfarin (COUMADIN) tab(s) 6 mg 6 mg ORAL/FEEDING TUBE ONCE - WARFARIN OBJECTIVE PHYSICAL EXAM: BP (!) 85/41 Pulse 92 Temp 36.6 ?C (97.9 ?F) (Oral) Resp 16 Ht 177 cm (5' 9.69) Wt 118.7 kg (261 lb 11 oz) SpO2 100% BMI 37.89 kg/m? No intake or output data in the 24 hours ending 05/24/25 1532 Constitutional:No acute distress, awake, alert and responsive Cardiovascular:Regular rate and rhythm 1+ BLE edema Respiratory:Normal respiratory effort on RA Abdomen:Soft, non-tender, non-distended Psychiatric: Alert and oriented x self, place, time, and setting Normal mood/affect Vascular Access: Hemodialysis catheter location: Right Tunneled internal jugular. Exit site demonstrates: normal findings DATA: Diagnostic tests reviewed for today's visit: Recent Labs 05/24/25 0711 05/23/25 0725 05/22/25 0905 05/21/25 0414 05/20/25 0713 NA 135* 140 137 137 139 K 6.3* 5.7* 5.2* 4.6 5.4* CHLOR 95* 98 99 97* 99 CO2 25 25 23 27 25 BUN 20 25* 17 10 20 CREAT 5.45* 7.96* 6.72* 4.64* 6.81* GLUC 105* 84 76 92 95 ANION 15 17* 15 13 15 CA 7.6* 7.2* 7.8* 8.1* 7.3* P -- 4.3 -- -- -- Recent Labs 05/24/25 0711 05/23/25 0725 05/22/25 0905 WBC 3.71 4.56 4.55 HB 8.0* 7.9* 7.8* HCT 27.0* 26.1* 25.9* PLT 201 202 189 ASSESSMENT: Mr. 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 Labs on presentation significant for elevated lactic acid, leukocytosis, anemia and supratherapeutic INR. Of note, his previous admission 10/12/2024-11/02/2024 was also for pain and bleeding of the wounds/skin ulcers. Biopsy was consistent with reactive ischemic changes at the time without features of Polyderma Gangrenosum or calciphylaxis. Patient was admitted under general internal medicine team for further management. Course c/b new 2nd degree AV shantell, mobitz type 1. Plan for pacemaker 05/23 Nephrology consulted for ESR management. 1.ESRD -Etiology: HTN Renal Biopsy 2005 for renal failure of undetermined etiology. 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 using an angioplasty balloon per IR 2.Electrolytes/acid-base: -Hyperkalemia 3.Hypertension/Volume Status: -BP 113/78 -Midodrine 20mg q8h -Pre-weight: 118.6kg EDW: 114kg -Targeting 3L UF with crit line assist -Hypervolemia 4.Anemia of CKD: -Hgb below ESRD goal -Iron Stores: ferritin 996 TSAT 15.4- deferring IV iron with IE work up -ANABELLA: Weekly Aranesp 5.Secondary renal hyperparathyroidism: -Calcitriol 1.5mcg TIW, Sensipar 30mg daily, Revela 800mg TID with meals -PTH 578--> 181 PLAN: -IHD today 3 hours, 2K bath, 3L UF -Next IHD Friday -EDW 114kg -Weekly Aranesp Standard ESRD recommendations and precautions: - Strict IANDOs and Daily weight - Consider a RENAL Diet for HD patients - Fluid restriction < 1 L - Start Nephrocap or other renal multivitamin to replace water-soluble vitamins lost during dialysis - Avoid Lovenox, Gadolinium (MRI contrast), Demerol, Morphine, K-containing IVF, Mg- or Phos- containing enemas -Dose meds eGFR<10 Outpatient dialysis disposition plan: contact [phone] and ask to speak with the director of front office as needed for assistance with post-discharge arrangements. Please DO NOT schedule patient for a nephrology follow up appointment. Kidney care will be provided by the primary data warehousing engineer at their dialysis unit upon hospital discharge. Disclosures: Parts of the current progress note may have been copied from a previous note. SIGNATURE: Gibson Abbott APRN.CNP PATIENT NAME: Elia Weston DATE: May 24, 2025 TIME: 3:32 PM PAGER: [phone] FOR AFTER HOUR CONCERNS BETWEEN 5PM - 7AM CONTACT ON-CALL NEPHROLOGY FELLOW PROGRESS Observed: 05/24/2025 1:58 PM Status: COMPLETED Source: [facility] ID: [id number] Author: BEULAH RAMEY MD Service: General Internal Medicine Author Type: Physician Type: Progress Notes Filed: 05/24/2025 14:04 Note Text: [facility] STAFF PHYSICIAN NOTE OF PERSONAL INVOLVEMENT IN CARE I have reviewed the note documented by the resident and I personally participated in the mendoza components. I have discussed the case and management of the patient's care. The following comments revise or confirm relevant mendoza components of the note. 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 He was seen by Vascular surgery in Oct 23: [facility] Sx recs: 1. 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 Continued dialysis through his catheter indefinitely 3. No need for further follow-up with Vascular Surgery wounds. Since Jan, 2025, he started to have increased pain and was admitted in [place] 02/16-02/18/2025, received Vancomycin and Zosyn. For the past few weeks prior to admission, his coumadin dosing was changed multiple times due to erratic INR. He started to notice bleeding from left chest wounds. On admission he had high INR and bleeding from wounds. INR was reversed. Underwent balloon angioplasty of R innominate vein stenosis and R TDC exchange on 04/29 with vascular surgery. Course was complicated by re bleeding (05/07 and 05/17). Dosing coumadin has been difficult because of erratic INR and bleeding episodes. Course was also complicated by prolonged DE (worsening) for which he was seen by EP and underwent leadless pacemaker placement on 05/23/25. YONATHAN done on 05/18 showed: The left ventricle is normal in size. There is mild left ventricular hypertrophy. Left ventricular systolic function is normal. EF = 60 ? 5% (visual est.) - The right ventricle is normal in size. Right ventricular systolic function is normal. - The left atrial cavity is dilated. - The right atrial cavity is dilated. - Post mitral valve replacement. On-X prosthetic mitral valve (size #25). - No echocardiographic evidence of endocarditis There is trace (trace - 1+) mitral valve regurgitation. - There is moderate (2+) tricuspid valve regurgitation. - The patient has not had a prior CC echocardiographic exam for comparison. 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 # Acute on chronic blood loss anemia # Lactic acidosis due to hypovolemia (on admission: Resolved) # ESRD on longstanding hemodialysis with very poor dialysis access # Secondary hyperparathyroidism with hyperphosphatemia # Mechanical MV placement with INR goal 2.5-3.5 This note may contain elements from previous notes and elements copied from other sources in patient's Epic record for cohesive documentation. All elements have been reviewed by me today to ensure accuracy and have been updated to reflect relevant clinical elements as well as updated assessment and plan. This note may also be in part produced with the aid of voice-recognition technology. While every attempt is made to correct any typographical errors during dictation, errors may still exist. Beulah Ramey MD, MEd, FACP Staff, Dept. Of Hospital Medicine PAGER - [phone] THERAPY NT Observed: 05/24/2025 1:26 PM Status: COMPLETED Source: [facility] ID: [id number] Author: LUCILLE MURPHY PT Service: Physical Therapy Author Type: Bicycle Subassembler Type: Therapy (PT/OT/Speech/Resp) Filed: 05/24/2025 14:03 Note Text: Attestation signed by Lucille Murphy PT at 05/24/2025 2:03 PM I reviewed and agree with the documentation corresponding to this therapy visit. SIGNATURE: Lucille Murphy PT DATE: May 24, 2025 TIME: 2:02 PM Physical Therapy Treatment Summary SERVICE DATE: 05/24/2025 SERVICE TIME: 1254 to 1324 ROOM: [place] [id number] PT 6 Clicks Score: 22 DISCHARGE RECOMMENDATIONS Home PT Anticipated Discharge Needs: Physical Assist at Home Physical Assist at Home for: Transfers, Cleaning, Laundry, Meals, Stairs, Safety, Self Care, Shopping, Transportation (+ PRN) ASSESSMENT Pt was able to ambulate, needed to use the restroom therefore did ambulate further distance. Response to Therapy Interventions: Good Participation in Activities, Improved Tolerance for Activity PRECAUTIONS Per EPIC: Procedure: Leadless pacemaker (Micra AV) patient doing well s/p Micra implant on 05/23/2025, groin sutures remove - wound care instructions are provided below, please include in DC summary - please obtain 2v CXR and device check today - pending adequate review of CXR and device check, the EP Consult service will sign off Post Micra Patient Instructions Activity: No heavy lifting for 1 week. 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 Has been sleeping in recliner 2/2 to pain. (+) driving SUBJECTIVE THERAPY DIAGNOSIS Reduced mobility-other, Muscle Weakness (generalized), General symptoms and signs-other TREATMENT INTERVENTIONS Therapeutic Activity (48068), Gait Training (39048) Timed Code Treatment (minutes): 23 Skilled Treatment Time (minutes): 23 TRAINING AND EDUCATION PROVIDED Benefits of In-Hospital Mobility, Expected Functional Level, Falls Prevention, Gait Pattern, Reduction of Deviations, Role of Physical Therapy, Transfers THERAPEUTIC SKILLS USED Cuing Visual, Cuing Verbal, Cuing Tactile, Cues for Sequencing/Proper Technique for Activity, Activity Dosing FUNCTIONAL STATUS Bed Mobility Supine To Sit: Stand By Assistance Scooting: Stand By Assistance Transfers Sit To Stand: Stand By Assistance Stand To Sit: Stand By Assistance Bed to Chair Stand By Assistance Bed To Chair Transfer Type: Stepping Bed To Chair Transfer Equipment: (IV pole) Gait Stand By Assistance Gait Device: None Gait Distance (feet): 20 Stairs GOALS Patient will demonstrate progress with functional mobility to allow safe discharge to home with available support and/or physical assistance. Rehab Potential: Good Progress Toward Goals: Progressing as expected ACUTE CARE TREATMENT PLAN PT Frequency: Per Next Session Date Treatment Interventions: Education, Self Care / Home Management, Energy Conservation Training, Joint Mobility, Strengthening, Functional Mobility Training, Balance Training, Neuromuscular Re-education Plan for Next Visit: Gait Training, Stair Training SIGNATURE: Artie Chi PTA PATIENT NAME: Elia Weston DATE: May 24, 2025 TIME: 1:27 PM ECG COMPLETE Observed: 05/24/2025 11:30 AM Status: F Source: [facility] Ventricular Rate : 88 BPM QRS Duration : 68 ms Q-T Interval : 386 ms QTC Calculation(Bazett) : 467 ms Calculated R Assumption : 155 degrees Calculated T Assumption : 47 degrees SINUS RHYTHM WITH 1ST DEGREE AV BLOCK POSSIBLE RIGHT VENTRICULAR HYPERTROPHY POSSIBLE ANTEROLATERAL INFARCTION , AGE UNDETERMINED ABNORMAL ECG Confirmed by ARPITA PACHECO MD ([id number]) on 06/06/2025 3:47:09 PM NAME : ELIA WESTON PID : [id number] : 1980 Gender : Male Race : ORD : [id number] Procedure Date : May 24 2025 11:30:30 Edit Date : Jun 06 2025 15:47:14 Diagnosis: SINUS RHYTHM WITH 1ST DEGREE AV BLOCK POSSIBLE RIGHT VENTRICULAR HYPERTROPHY POSSIBLE ANTEROLATERAL INFARCTION , AGE UNDETERMINED ABNORMAL ECG Confirmed by ARPITA PACHECO MD ([id number]) on 06/06/2025 3:47:09 PM Test Reason : Arrhythmia Location : 180 : G80 G080-25 Overread By : ARPITA PACHECO MD Edited By : ARPITA PACHECO MD Referred By : , Acquired by : BHAKTI TORRES CONSULT PROG Observed: 05/24/2025 11:20 AM Status: COMPLETED Source: [facility] HNO ID: [id number] Author: BOLA GARVIN, PhD Service: Psychology Author Type: Psychologist Type: Consult Progress Note Filed: 05/24/2025 15:27 Note Text: Attestation signed by Bola Garvin, PhD at 05/24/2025 3:27 PM STAFF ATTESTATION This service has been performed by a fellow under the direction of myself as supervising psychologist. I was readily available to furnish assistance and direction throughout the encounter. I agree with the fellow's findings and plan as documented and have discussed the case and management of the patient's care with the fellow. Bola Garvin, Ph.D. Clinical Health Psychologist PSYCHOLOGY BRIEF NOTE ADMISSION DATE: 04/20/2025 ATTENDING PROVIDER: Beulah Ramey MD PRIMARY CARE PROVIDER: No primary care provider on file. DATE: 05/24/2025 TIME: 11:20-11:30AM Patient was seen eating lunch in bedside chair upon arrival. Reported improvements to mood compared to yesterday, however, he stated that mood was not so low but not so high. Attributed shifts in recent mood to pacemaker procedure and associated long day. He endorsed frustrations with prolonged hospitalization but acknowledged need for admission in order for physical health improvements. Patient denied additional concerns at this time and requested to end the session so that he could spend the remainder of his day relaxing to improve mood. He was interested in continued future follow up from art and music therapy as well as the private watchman. Psychology will continue to follow. SIGNATURE: Janak Landry PsyD PATIENT NAME: Elia Weston DATE: May 24, 2025 TIME: 3:01 PM PSYCHOLOGY PAGER: [phone] ALLIED HEALTH Observed: 05/24/2025 10:50 AM Status: COMPLETED Source: [facility] HNO ID: [id number] Author: NOAH JUAREZ Chaplain Service: Spiritual Care Author Type: Radio News Anchor Type: Allied Health Filed: 05/24/2025 14:34 Note Text: SPIRITUAL CARE ASSESSMENT SERVICE DATE: 05/24/2025 SERVICE TIME: 10:50 Visit with: Patient Length of visit (minutes): 15 Pentecostalism / Spirituality: Orthodox Reason: Initial visit ASSESSMENT Emotional Disposition: Confused, Despair, and Sadness Relational Concerns: Struggling with Self-care Spiritual Concerns: Struggling with meaning of illness or diagnosis and Struggling with transition or change INTERVENTIONS Empowerment: Encouraged adherence to treatment plan, Encouraged focus on present, Encouraged self-care, and Provided anticipatory guidance Exploration: Explored hope, Facilitated story telling, and Identified, evaluated, and reinforced appropriate coping strategies Relationship Building: Provided hospitality Ritual: Provided prayer OUTCOMES Spiritual resources utilized PLAN Will follow as circumstances allow COMMENTS: SIGNATURE: Chaplain Frank PATIENT NAME: Elia Weston DATE: May 24, 2025 TIME: 2:32 PM PAGER/CONTACT #: [phone] XR CHEST 2V FRONTAL/LAT Observed: 2024 10:37 AM Status: F Source: [facility] * * *Final Report* * * DATE OF EXAM: May 24 2025 10:37AM JOAN [id number] - XR CHEST 2V FRONTAL/LAT / PROCEDURE REASON: Foreign Body * * * * Physician Interpretation * * * * EXAMINATION: CHEST RADIOGRAPH (2 VIEW FRONTAL and LATERAL) CLINICAL HISTORY: Foreign Body MQ: [id number] EXAM DATE/TIME: 05/24/2025 10:37 AM COMPARISON: CT dated 04/22/2025 RESULT: Lines, tubes, and devices: The patient is status post median sternotomy with mitral valve replacement and left atrial appendage clip placement. Right IJ venous catheter and leadless pacemaker device are in place. Lungs and pleura: Patchy reticular opacities are noted, likely related to pulmonary edema. Patchy opacities are noted at the lung bases, likely related to atelectasis. No substantial pleural effusions or pneumothorax are noted. Cardiomediastinal silhouette: Cardiomediastinal silhouette is borderline enlarged. There is prominence of the azygos vein. Bones and soft tissues: Inferior most sternotomy wire is fractured. IMPRESSION: Please see body of report. Residential Driver: AZAM Transcribe Date/Time: May 24 2025 11:37A Dictated by : JAC AGUILERA MD This examination was interpreted and the report reviewed and electronically signed by: JAC AGUILERA MD on May 24 2025 11:41AM EST [id number] CONSULT PROG Observed: 05/24/2025 10:21 AM Status: COMPLETED Source: [facility] HNO ID: [id number] Author: KENTRELL BHARDWAJ MD Service: Electrophysiology Author Type: Fellow Type: Consult Progress Note Filed: 05/24/2025 10:23 Note Text: [facility] ELECTROPHYSIOLOGY CONSULT PROGRESS NOTE Elia Weston [id number] PRIMARY SERVICE: Internal Medicine CONSULTING SERVICE: Electrophysiology DATE OF ADMISSION: 04/20/2025 REASON FOR CONSULT: AV block IMPRESSION AND RECOMMENDATIONS: 45M with ESRD on HD, 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 The EP service are now consulted for rhythm management. - 13 Aug: Awaiting YONATHAN. - 14 Aug: Awaiting YONATHAN. ECG with DE continuing to prolong (~450 ms). - 15 Aug: Unable to undergo YONATHAN with conscious sedation (required a lot of sedation to be comfortable resulting in hypotension). - 16 Aug: ECG demonstrates DE ~430 ms - 18 Aug: Discussed EP plan in detail (YONATHAN to assess for IE, if no IE leadless PPM; if IE, multidisciplinary treatment including possible OHS). - 20 Apr: YONATHAN formal read without evidence of endocarditis - Aug: Atropine 0.5mg administered bedside: pre-atropine DE 420ms at HR 93, post-atropine DE 420ms at HR 113 - 23 Aug: discussed procedure with patient in detail Recommendations: - patient doing well s/p Micra implant on 05/23/2025, groin sutures remove - wound care instructions are provided below, please include in DC summary - please obtain 2v CXR and device check today - pending adequate review of CXR and device check, the EP Consult service will sign off Kentrell Bhardwaj MD Cardiac Electrophysiology Fellow PGY-7 Heart,Vascular, and Thoracic [facility] Post Micra Patient Instructions Activity: No heavy lifting for 1 week. Wound Care: Ok to shower tomorrow. Do not submerge groins in water for 1 week (no baths, swimming or hottubs). Special Instructions: 1. Call if you have the following symptoms: Fever, chills, nausea, vomiting, difficulty swallowing, bloated feeling, shortness of breath and increased chest pain worse than when you left. Call your physician's office directly with any concerns. NUTRITION Observed: 05/24/2025 9:30 AM Status: COMPLETED Source: [facility] HNO ID: [id number] Author: ADIEL MCKINLEY DTR Service: Nutrition Therapy Author Type: Tractor Driver Teamster Type: Nutrition Filed: 05/24/2025 12:10 Note Text: NUTRITION THERAPY CLERICAL ORDER FILLER NOTE SERVICE DATE: 05/24/2025 SERVICE TIME: 929 Visit Type: Follow-Up Evaluation Goals Met: Met Patient reports good appetite and eating 100% of hospital meals and outside meals and taking nutrition supplement. Will continue to follow for nutrition needs as able. Plan of Care: Supplements: Boost Glucose Control Follow-Up: Tech Reassessment Nursing Admission Assessment Malnutrition Score: 0 Nutrition Intake: Diet Orders (From admission, onward) Start Ordered 05/24/25 1115 DIET RENAL START NOW Question: Renal Answer: 2400 MG K / 2400 MG NA 05/24/25 1111 05/18/25 1300 DIET SUPPLEMENTS START NOW Question Answer Comment Supplement 1 (19 years and up) BOOST GLUCOSE CONTROL CHOCOLATE Supplement 1 Frequency DINNER 05/18/25 1258 Average Daily Calorie Intake (kcal): 956 kcal Average Daily Protein Intake (gm): 50 gm Average intake over: 3 days (Patient was NPO on 05/23. Patient reporting that he has been getting outside meals.) Average Supplement Intake (kcal): 190 kcal Average Supplement Intake (gm): 16 gm Average supplement intake over: 3 days Appetite: Good GI Symptoms: None Anthropometrics: Body mass index is 37.89 kg/m?. Weight Change: Increased Food Preferences: None Allergies: No food allergy MNT Billing: $ Routine Care : 1 unit SIGNATURE: Adiel Mckinley DTR PATIENT NAME: Elia Weston DATE: May 24, 2025 TIME: 12:08 PM CBC PNL BLD AUTO Collected: 7:11 AM Status: F Source: [facility] Order Comment: Specimen Type : BLOOD SPECIMEN Ordering Facility: [facility] Address: [address] [place] [address] TYPE CODE TESTS RESULT OUT OF RANGE REFERENCE UNITS LAB 6690-2(LOINC) WBC # Bld Auto 3.71 3.70-11.00 k/uL LAB 789-8(LOINC) RBC # Bld Auto 2.78 Low 4.20-6.00 m/uL LAB 718-7(LOINC) Hgb Bld-mCnc 8.0 Low 13.0-17.0 g/dL LAB 4544-3(LOINC) Hct VFr Bld Auto 27.0 Low 39.0-51.0 % LAB 787-2(LOINC) MCV RBC Auto 97.1 80.0-100.0 fL LAB 785-6(LOINC) MCH RBC Qn Auto 28.8 26.0-34.0 pg LAB 786-4(LOINC) MCHC RBC Auto-mCnc 29.6 Low 30.5-36.0 g/dL LAB 49211-8(LOINC) RDW RBC-Rto 18.5 High 11.5-15.0 % LAB 777-3(LOINC) Platelet # Bld Auto 201 150-400 k/uL LAB 43477-7(LOINC) PMV Bld Auto 11.2 9.0-12.7 fL LAB 771-6(LOINC) nRBC # Bld Auto <0.01 <0.01 k/uL Performed By: #### [id number] # ### [facility] CLIA [id number] [address] [place] [address] [place] COMP METAB 2000 PNL SERPL Collected: 7:11 AM Status: F Source: [facility] Order Comment: Specimen Type : BLOOD SPECIMEN Ordering Facility: [facility] Address: [place] [address] TYPE CODE TESTS RESULT OUT OF RANGE REFERENCE UNITS LAB 2885-2(LOINC) Prot SerPl-mCnc 7.5 6.3-8.0 g/dL LAB 1751-7(LOINC) Albumin SerPl-mCnc 3.7 Low 3.9-4.9 g/dL LAB 94508-6(LOINC) Calcium SerPl-mCnc 7.6 Low 8.5-10.2 mg/dL LAB 1975-2(LOINC) Bilirub SerPl-mCnc 0.2 0.2-1.3 mg/dL LAB 6768-6(LOINC) ALP SerPl-cCnc 146 High 38-113 U/L LAB 1920-8(LOINC) AST SerPl-cCnc 28 14-40 U/L LAB 1742-6(LOINC) ALT SerPl-cCnc 11 10-54 U/L LAB 2345-7(LOINC) Glucose SerPl-mCnc 105 High 74-99 mg/dL Result Comment: The [place] Diabetes Association (ADA) provides guidance for cutoff values for fasting glucose and random glucose. The ADA defines fasting as no caloric intake for at least 8 hours. Fasting plasma glucose results between 100 to 125 mg/dL indicate increased risk for diabetes (prediabetes). Fasting plasma glucose results greater than or equal to 126 mg/dL meet the criteria for diagnosis of diabetes. In the absence of unequivocal hyperglycemia, results should be confirmed by repeat testing. In a patient with classic symptoms of hyperglycemia or hyperglycemic crisis, random plasma glucose results greater than or equal to 200 mg/dL meet the criteria for diagnosis of diabetes. Reference: Standards of Medical Care in Diabetes 2016, [place] Diabetes Association. Diabetes Care. 2016.39(Suppl 1). LAB 3094-0(LOINC) BUN SerPl-mCnc 20 9-24 mg/dL LAB 2160-0(LOINC) Creat SerPl-mCnc 5.45 High 0.73-1.22 mg/dL LAB 2951-2(LOINC) Sodium SerPl-sCnc 135 Low 136-144 mmol/L LAB 2823-3(LOINC) Potassium SerPl-sCnc 6.3 High Alert 3.7-5.1 mmol/L LAB 2075-0(LOINC) Chloride SerPl-sCnc 95 Low 98-107 mmol/L LAB 2027-9(LOINC) CO2 SerPl-sCnc 25 22-30 mmol/L LAB 74905-0(LOINC) Anion Gap SerPl-sCnc 15 8-15 mmol/L LAB 35175-0(LOINC) eGFRcr SerPlBld CKD-EPI 2020 13 Low >=60 mL/min/1. 73m??? Result Comment: Estimated Gl omerular Filtration Rate (eGFR) is calculated using the 2020 CKD-EPI creatinine equation. This equation utilizes serum creatinine, sex, and age as parameters. The creatinine assay has traceable calibration to isotope dilution-mass spectrometry. Refer to KDIGO guidelines for clinical interpretation. In patients with unstable renal function, e.g. those with acute kidney injury, the eGFR may not accurately reflect actual GFR. Performed By: #### 32454-1 # ### [facility] CLIA [id number] [address] [place] [address] [place] PT PNL PPP Collected: 05/24/2025 7:11 AM Status: F Source: [facility] Order Comment: Specimen Type : BLOOD SPECIMEN Ordering Facility: [facility] Address: [address] [place] [address] TYPE CODE TESTS RESULT OUT OF RANGE REFERENCE UNITS LAB 5902-2(LOINC) Prothrombin time 17.7 High 9.7-13.0 sec LAB 6301-6(LOINC) INR PPP 1.7 High 0.9-1.3 Result Comment: Vitamin K An tagonist (VKA) Therapeutic Range: INR 2 to 3 (Target INR of 2.5) Note: For patients treated with VKA drugs, such as warfarin, the [place] College [employer]icians 2012 Guideline recommends a therapeutic INR range of 2 to 3 (target INR of 2.5). This recommendation includes high-risk patients with antiphospholipid syndrome with previous arterial or venous thromboembolism, current-generation mechanical or bioprosthetic aortic heart valve replacement. Note: Patients with mechanical aortic valve replacement and additional risk factors for thromboembolic events (atrial fibrillation, previous thromboembolism, LV dysfunction, hypercoagulable conditions) or an older generation mechanical AVR (i.e., ball in-Cage) or any mechanical MVR should have a INR therapeutic range of 2.5 to 3.5 (target INR of 3). Ranjit YOUSSEF, et al. Chest 2012, 141:7S-47S Kevin RUSHING et al. [facility] 2017, 70: 252-289 Performed By: #### 57624-2 # ### [facility] CLIA [id number] [address] [place] [address] [place] PROGRESS Observed: 05/24/2025 5:24 AM Status: COMPLETED Source: [facility] HNO ID: [id number] Author: BEULAH RAMEY MD Service: General Internal Medicine Author Type: Physician Type: Progress Notes Filed: 05/24/2025 13:49 Note Text: DEPARTMENT OF HOSPITAL MEDICINE PROGRESS NOTE SERVICE DATE: 05/24/2025 SERVICE TIME: 5:39 AM Hospital Medicine/Primary Attending: Beulah Ramey MD NIGHT AND WEEKEND COVERAGE: [facility] COVERAGE: Nights: [phone], please page Team Jeffrey Haq; overnight/admitting pager [phone] Subjective Chief Complaint: Pain and chronic chest wound bleeding INTERVAL HPI: Mr. 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 Patient was hospitalized in September 2024 to October 2024 for pain and bleeding from the wounds. Patient was seen by dermatology back then for his skin ulcers. Biopsy performed and was most c/w reactive ischemic changes without features of Pyoderma Gangrenosum or Calciphylaxis. Now, plan for venoplasty with IR pending improvement in INR. Dermatology consulted and underwent steroid trial at wound edge. He was bridged to warfarin while here given his history of mechanical valve. Stay further complicated by new bradycardia, found to have Mobitz 1 second-degree AV block for which cardiology/EP was consulted. Overnight Events: - No acute events overnight - SBP 100s-130s, with 1 reading of 89/39, maps 40s to 90s, otherwise afebrile and HDS. Patient on midodrine 20 mg TID, was only given twice yesterday. - Patient denied fevers, chills, N/V/D, chest pain, shortness of breath, abdominal pain - 05/23 patient underwent leadless pacemaker, no complications reported. Left groin suture to be removed by EP team 05/24 - Pain well-controlled with oxycodone 15 mg q4H PRN (2x). - 0 BM charted over past 24 hrs, patient refused laxatives last night. patient on MiraLAX twice daily and senna twice daily which was increased yesterday - 05/23, PT/INR 1.6, warfarin increased to 5 mg. Hgb 7.9. - Patient underwent HD 05/23, 2.5 L UF. Current Facility-Administered Medications Medication Dose Route Frequency NaCl 0.9% iv flush bag 20 mL INTRAVENOUS PRN acetaminophen 650 mg tab(s) (TYLENOL) 650 mg ORAL q 6 H PRN aspirin 81 mg chewable tab(s) 81 mg ORAL DAILY midodrine 20 mg tab(s) (PROAMATINE) 20 mg ORAL q 8 H sevelamer carbonate 800 mg tab(s) (RENVELA) 800 mg ORAL TID w MEALS calcitriol 1.5 mcg cap(s) (ROCALTROL) 1.5 mcg ORAL - fentaNYL 50 mcg/mL 25 mcg injection (SUBLIMAZE) 25 mcg INTRAVENOUS DAILY PRN warfarin order for discharge OTHER PRN ascorbic acid 500 mg chewable tab(s) 500 mg ORAL DAILY pyridoxine (vitamin B6) 50 mg tab(s) (VITAMIN B6) 50 mg ORAL DAILY vitamin A 10,000 Units cap(s) (AQUASOL A) 10,000 Units ORAL DAILY fentaNYL 50 mcg/mL 50 mcg injection (SUBLIMAZE) 50 mcg INTRAVENOUS DAILY PRN melatonin 3 mg tab(s) 3 mg ORAL/FEEDING TUBE AT BEDTIME PRN Darbepoetin [place] In Polysorbat 60 mcg injection (ARANESP) 60 mcg SUBCUTANEOUS q Wed oxyCODONE IR 15 mg tab(s) (ROXICODONE) 15 mg ORAL q 4 H PRN busPIRone 5 mg tab(s) (BUSPAR) 5 mg ORAL DAILY diazePAM 2.5 mg injection (VALIUM) 2.5 mg INTRAVENOUS BID PRN senna 17.2 mg tab(s) (SENOKOT) 17.2 mg ORAL/FEEDING TUBE BID polyethylene glycol 3350 17 g packet 17 g ORAL BID cinacalcet 30 mg tab(s) (SENSIPAR) 30 mg ORAL DAILY Objective PHYSICAL EXAM: BP 129/40 Pulse 103 Temp (Src) 98.2 (Oral) Resp 20 Ht 5' 9.685 (1.77m) Wt 261 lb 11 oz (118.7kg) SpO2 97% BMI 37.89 kg/(m2). O2 Therapy: Room Air Physical Exam Performed General: AANDO x 4, cooperative Skin: Right and left anterior and posterior chest wounds without purulent discharge Lungs: Clear to auscultation bilaterally, no wheezing, no crackles Cardiac: RRR, normal S1, S2, no S3, S4, no murmurs Abdomen: Soft, nontender, BS normal, no masses Lines, Drains, and Airways Line Duration Peripheral 04/26/25 2[facility] Right Forearm 20 Gauge 27 days Dialysis / Apheresis Double Lumen 04/29/25 1005 [facility] Tunneled Right Internal Jugular 24 days DATA: Latest Ref Rng AND Units 05/21/2025 05/22/2025 05/23/2025 CBC WBC 3.70 - 11.00 k/uL 4.92 4.55 4.56 RBC 4.20 - 6.00 m/uL 2.74 2.67 2.74 Hemoglobin 13.0 - 17.0 g/dL 7.8 7.8 7.9 Hematocrit 39.0 - 51.0 % 25.5 25.9 26.1 MCV 80.0 - 100.0 fL 93.1 97.0 95.3 MCH 26.0 - 34.0 pg 28.5 29.2 28.8 MCHC 30.5 - 36.0 g/dL 30.6 30.1 30.3 RDW-CV 11.5 - 15.0 % 19.2 18.8 18.6 Platelet Count 150 - 400 k/uL 190 189 202 MPV 9.0 - 12.7 fL 10.3 10.4 10.9 Latest Ref Rng AND Units 05/21/2025 05/22/2025 05/23/2025 CMP Sodium 136 - 144 mmol/L 137 137 140 Potassium 3.7 - 5.1 mmol/L 4.6 5.2 5.7 Chloride 98 - 107 mmol/L 97 99 98 CO2 22 - 30 mmol/L 27 23 25 Glucose 74 - 99 mg/dL 92 76 84 BUN 9 - 24 mg/dL 10 17 25 Creatinine 0.73 - 1.22 mg/dL 4.64 6.72 7.96 EGFR >=60 mL/min/1.73m? 15 10 8 Protein, Total 6.3 - 8.0 g/dL 7.6 6.9 7.1 Albumin 3.9 - 4.9 g/dL 3.7 3.4 3.5 Calcium 8.5 - 10.2 mg/dL 8.1 7.8 7.2 Bilirubin, Total 0.2 - 1.3 mg/dL 0.3 0.3 0.2 AST 14 - 40 U/L 23 20 18 ALT 10 - 54 U/L 11 10 10 Alkaline Phosphatase 38 - 113 U/L 157 144 148 Transthoracic echocardiogram 05/06/25: EF: 60%, left ventricular hypertrophy, right ventricle normal, trace tricuspid valve regurgitation, trace pulmonic valve regurgitation, no pericardial effusion, aorta normal in size CXR 04/21/25: TDC with tip in RA. Increase of perihilar and basilar opacities with volume loss, suggesting atelectasis, possible underlying edema/inflammation. Blunting of L CP angle, which may represent tiny effusion or pleural thickening. CT A/P 04/22/25: No abdominal or pelvic subcutaneous fluid collection of gas. Redemonstrated diffuse subcutaneous extensive abdominal wall collaterals, similar to prior CTA 10/17/2024. CT chest 04/22/25: extensive chest wall collaterals, few areas of skin ulceration, no areas of drainable fluid collection. Findings consistent with central venous stenoses. Few patchy groundglass opacities, may be related to mild pulm edema YONATHAN 05/18/25: Impression CONCLUSIONS: - Exam indication: ?Endocarditis - The left ventricle is normal in size. There is mild left ventricular hypertrophy. Left ventricular systolic function is normal. EF = 60 ? 5% (visual est.) - The right ventricle is normal in size. Right ventricular systolic function is normal. - The left atrial cavity is dilated. - The right atrial cavity is dilated. - Post mitral valve replacement. On-X prosthetic mitral valve (size #25). - No echocardiographic evidence of endocarditis There is trace (trace - 1+) mitral valve regurgitation. - There is moderate (2+) tricuspid valve regurgitation. - The patient has not had a prior CC echocardiographic exam for comparison. Assessment/Plan Problem List Assessment AND Plan Bleeding from open wound of chest wall, right, initial encounter Secondary hyperparathyroidism, renal (HCC) ESRD on hemodialysis (HCC) History of non-ST elevation myocardial infarction (NSTEMI) Vitamin D deficiency S/P MVR (mitral valve replacement) Supratherapeutic INR Atrial fibrillation (HCC) Acute on chronic blood loss anemia Adjustment disorder with depressed mood Acquired hypothyroidism Acquired stenosis of superior vena cava Venous collateral circulation Status post Maze operation for atrial fibrillation Ulcers, venous (HCC) Wounds, multiple Anemia due to multiple mechanisms Hemorrhage from open wound of left chest wall Open chest wound, right, sequela Open chest wound, left, sequela Back wound, unspecified laterality, sequela Open wound of abdomen Open wound of right thigh Bleeding from wound Difficult intravenous access Hypervolemia Skin ulcers (HCC) Vitamin C deficiency Vitamin A deficiency Vitamin B6 deficiency Second degree AV block, Mobitz type I Impaired skin integrity HOSPITAL COURSE: Elia Weston is a 45 year old male with extensive PMH, significant for ESRD on HD (MWF) last session 04/18 (skipped Friday since he came to ED), CAD s/p CABG, severe MS s/p MVR on Warfarin (goal INR of 2.5-3.5), pAfib s/p maze procedure and RADHA clip and chronic chest/abdominal/back wounds (3 years) likely secondary to ischemia in context of SVC syndrome and multiple thrombosis, who presented to the ED with 1-day of left chronic chest wound bleeding. Admitted for management of bleeding, and on transfer to [facility], patient began to have significant bleeding from R chest wound. Continuous pressure was applied and bleeding stopped. Now s/p FFP and RBC transfusions as appropriate. Initially started on Vanc/Zosyn given elevated ESR/CRP and WBC, no infectious concern on further imaging with improved lactate WBC, so ABx were stopped. Dermatology and wound care consulted. 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 Features of pyoderma gangrenosum, calciphylaxis not identified. Patient presented with acute worsening of pain and bleeding from wound, pain now is well-controlled. - Leukocytosis + Elevated CRP 22.1 and ESR 133 + Elevated lactate on presentation; concerned for infected wounds/soft tissue infection. Started on IV vanc/zosyn, later d/janie due to low infectious concern (04/21-04/25). WBC 4.5 (05/23). - On admission, acute rise in lactate in light of acute significant bleeding and drop in HGB (8.6 from 9.5 in ED) likely secondary to hypovolemia, also missed dialysis - CT venogram on 10/19/24 with b/l brachiocephalic stenosis w b/l subclavian vein occlusion, extensive venous collaterals - 10/22/24: Venoplasty completed by IR, removed L femoral TDC, exchanged R TDC - blood cultures 04/20/25 with NGTD 5 days - AMET for hypotension 80/50, s/p 500 cc LR bolus, scheduled midodrine with improved repeat 102/63 - lactate 2.4 from 1.7, improved from 3.2 at admission. Completed 5d course of IV vanc/zosyn (04/21-04/25) - CT chest and CT A/P 04/22/25 with no drainable fluid collections, extensive chest collaterals - nutritional workup: B12 elevated, folate wnl, iron low 26, TIBC low 137, trans sat wnl, low vit D 22.9, zinc 69 wnl, low vit A 0.10 - 04/29/25: Venoplasty: completed by IR. 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 Right upper chest tunneled dialysis catheter was exchanged over a wire for a new on; ready for use - Bilateral Upper Extremity doppler 05/12: No evidence of patent arteriovenous fistulas bilaterally PLAN: - IR consulted: > venoplasty 04/29/2025 - no complications - Derm consulted: > ongoing nutritional workup > discontinued clobetasol 0.05% ointment BID per derm, lesion over R scapula, try to simulate tx of PG and assess response > [facility] Derm f/u outpatient - Continue Vitamin D supplement 5000 unit(s), ascorbic acid 500mg/day, vit B6 50mg/day, vit A 10,000 units/day - wound care team consulted, appreciate care - pain control: tylenol 650 mg q6h prn and oxycodone 15 mg po q4h PRN. > IV fent for dressing changes as needed - plastic surgery consulted: > No indication for surgical intervention at this time > Will reassess patient's wounds with pain optimization - Cautious fluid resuscitation in light of acute bleeding and ESRD anuric on HD - Chest wound dressings to be changed every day #CAD s/p CABG #Severe MS s/p mechanical MVR on coumadin (Goal 2.5-3.5) #Paroxysmal Afib s/p multiple DCCV s/p Maze procedure + RADHA clip (07/2021) - atrial fibrillation and severe mitral stenosis s/p mechanical mitral valve replacement with On-x valve (INR goal 2.5-3.5), Maze procedure and RADHA clip on 08/21/2021. - Goal INR 2.5- 3.5; on warfarin 2.5 mg daily although patient not sure of dose, has been changed recently; last dose of warfarin Thursday 04/19 - possible etiology of supratherapeutic INR: warfarin dose (given patient not sure of home dose) vs malnutrition vs liver disease (less likely given AST/ALT wnl) - INR elevated to 5.1 on admission, improved to 3.9 s/p 2u FFP 04/21 - INR elevated again to 5.3, patient received po vitamin K 5 mg 04/25. Improved to 1.7 - INR 3.3 on 05/08 - INR of 5.2 on 05/10/25. Warfarin held. - INR 1.6 (05/23) PLAN: - > goal INR 2.5 - 3.5, given mechanical valve. - Heparin discontinued 05/07 - Daily INR - Follows with Dr. Moreno (cardiology in [place]) for mgmt of Coumadin, will need follow-up outpatient - 1mg Vitamin K IV given to reverse Warfarin, in view of undergoing YONATHAN, with YONATHAN lab protocol of INR<4. - Spoke to patient for considering Heparin GTT inpatient, however, patient refuses - INR 2.6 on 05/16/2025, repeat 3 mg warfarin PO - INR 3.5 on 05/17/25, half dose warfarin PO: 2mg on 05/17/25 - INR 2.9 on 05/18/25, will give 2mg on 05/18/25 - INR pending on 05/19/25 - INR 2.2 on 05/19/25: 3mg Warfarin PO on 05/20/25 - INR 1.7 on 05/21: 3mg Warfarin PO on 05/21/25 - INR 1.6 on 05/22 will increase warfarin from 3 to 4 mg - INR 1.6 on 05/23 will increase warfarin from 4 to 5 mg -INR 1.7 on 05/24 will increase warfarin from 5 to 6 mg - Will discuss with patient and EP the feasibility of starting low-dose heparin drip will continuing to bridge to warfarin until INR is 2 # Second-degree AV Block, Mobitz Type I - Patient having multiple episodes of bradycardia in the hospital with low blood pressures - Magnesium level 2.2 (05/05/25) - EKG (05/05/25) shows Second degree AV block, mobitz type 1 - EKG (05/06/25): shows sinus rhythm with 2nd degree AV shantell, mobitz type 1 - Transthoracic echocardiogram 05/06/25: EF: 60%, left ventricular hypertrophy, right ventricle normal, trace tricuspid valve regurgitation, trace pulmonic valve regurgitation, no pericardial effusion, aorta normal in size -Patient underwent leadless pacemaker with the EP (05/23) no complications reported reported. PLAN: - Fu 2V chest x-ray - Left groin sutures to be removed by EP consult team 05/24 #Constipation - Last recorded bowel movement was on 05/14/25 PLAN: - Continue Miralax BID - Continue senna BID #ESRD on HD via Right TDC #Chronic Hypotension-stable #Secondary 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 #Hyperkalemia - iHD at [facility] through R. Tunneled HD catheter MWF - Last dialysis session Friday04/18/2025; missed Fri session because he presented to [facility] ED - anuric at baseline per patient - Serum P=9.7 - completed HD 04/21, now on MWF - PTH elevated 578, Ca 8.3 low -Last IHD 05/23, 2.5L UF. 05/24 K 6.3, NA 135, BUN 20. Creatinine 5.4 from 7.9 (05/23) PLAN: -Hyperkalemia protocol, will discuss with nephro if additional IHD is necessary today 05/23 - nephrology consulted: > continue MWF HD schedule > continue calcitriol MWF > Continue weekly Aranesp > Next IHD 05/25 - Continue Sensipar, renvela with meals - Continue home midodrine 20 mg 3 times daily #Anemia of Chronic Disease/ESRD - Baseline hemoglobin 9- - iron studies 12/2024: iron 33, TIBC 156, Iron sat 21, ferritin 1327 - Hgb dropping iso bleeding wounds, as above. - received 1u pRBC 04/21, Hgb from 7.3 -> 7.7 post-transfusion - Hgb 6.9 on 04/22, s/p additional 2u pRBC with Hgb in ~8s - Hgb 7.9 (05/23) -> Hgb 8.0 (05/24) PLAN: - Hgb goal >8, 8.4 (05/08/25). - chronic wound mgmt, as above - Iron levels of 36, TIBC- WNL, Ferritin high at 996 on 05/08/25, Replete Iron levels for ANABELLA, per Nephrology recommendation, however due to concerns for ongoing possible endocarditis, we will refrain from IV Iron use until further workup. #Adjustment disorder? #Low mood - Psychology consulted 05/10/25 - Music therapy - Art therapy - Healing services - Aroma therapy, spiritual services, and brief inpatient psychotherapy ordered per Psychology's recommendation, 05/11/25. #Code status - Full # Diet - renal # VTE PPx - warfarin # Dispo Planning - Pending clinical course, SW consulted for recent unemployment, c/f food insecurity Medication and Non-Pharmacologic VTE Prophylaxis/Anticoagulants Anticoagulant AND Antiplatelet Medications (From admission, onward) Start Dose Route Frequency Last Action Ordered Stop 04/21/25 0900 aspirin 81 mg chewable tab(s) 81 mg PO DAILY Given, 05/22 1039 04/21/25 0316 -- 04/10/25 1015 activity - mobilize patient (nj,oh) 04/04/25 0900 graduated compression stockings (nj,ms) VTE Prophylaxis: VTE prophylaxis appropriate Disposition: To be determined Plan of care discussed with Provider, RN, Patient Plan communicated to: Family Signature: Pascale Swartz MD Internal Medicine PGY-1 05/24/2025 5:39 AM Patient seen and discussed with Beulah Norton. Addendum to follow. [facility] ([facility] STAFF PHYSICIAN NOTE OF PERSONAL INVOLVEMENT IN CARE I have reviewed the note documented by the resident and I personally participated in the mendoza components. I have discussed the case and management of the patient's care. The following comments revise or confirm relevant mendoza components of the note. Afebrile, no acute events overnight. No further episodes of bleeding. Blood pressure running low, on midodrine Underwent leadless pacemaker placement on 05/23/2025 by EP. INR continues to be lower than 2, increase Coumadin to 6 mg. Patient's INR is difficult to control and course has been complicated by severe bleeding episodes. Will talk to patient regarding starting IV heparin to bridge him at least till his INR is above 2. His goal is 2.5-3.5. Discuss with nephrology regarding adequacy of dialysis in the setting of hyperkalemia. Give SPS, EKG, calcium gluconate, insulin dextrose Beulah Ramey MD, MEd, FACP Staff, Dept. Of Hospital Medicine PAGER - [phone] NURSING PROG Observed: 05/23/2025 9:48 PM Status: COMPLETED Source: [facility] ID: [id number] Author: TONY MOSQUEDA RN Service: Nursing Author Type: Registered Nurse Type: Nursing Progress Note Filed: 05/24/2025 06:37 Note Text: Rounded on patient. Plan of care discussed. Patient verbalized understanding. Groin site assessed where pressure dressing is in placed. No bleeding noted. Suture is intact. Told patient that we can now remove his pressure dressing, he declined and said he wants it on a little longer. Scheduled meds given. Patient refused laxatives for tonight. Dressing to chest assessed, dry and intact. Spoke to patient about changing his dressing tonight. Patient declined and said he wants it done tomorrow. Patient said he is tired and had a rough day. Patient got emotional and started to cry. Patient then asked for his phone so he can call his . Vital signs stable. Will continue to monitor. ANES POSTPROC EVAL Observed: 05/23/2025 4:51 PM Status: COMPLETED Source: [facility] HNO ID: [id number] Author: SHEA MCKENNA MD Service: ? Author Type: Anesthesiologist Type: Anesthesia Postprocedure Evaluation Filed: 05/23/2025 17:22 Note Text: POST ANESTHESIA EVALUATION NOTE : 1980 Procedure Summary Date: 05/23/25 Room / Location: [address] LAB Anesthesia Start: 1315 Anesthesia Stop: 1633 Procedure: TRANSCATHETER INSERTION OR REPLACEMENT PERMANENT LEADLESS PACEMAKER,RIGHT VENTRICULAR Diagnosis: Bradycardia AV block Mobitz I Longstanding persistent atrial fibrillation (HCC) (Bradycardia [R00.1]) (AV block [I44.30]) (Mobitz I [I44.1]) (Longstanding persistent atrial fibrillation (HCC) [I48.11]) Surgeons: Jigar Hannah MD Responsible Provider: Shea Mckenna MD Anesthesia Type: general ASA Status: 4 Anesthesia Type: general Airway Type: ETT Last Vitals Vitals Value Taken Time BP 114/42 05/23/25 16:45 Temp 37 05/23/25 16:51 Pulse 73 05/23/25 16:49 Resp 2 05/23/25 16:46 SpO2 100 % 05/23/25 16:49 Vitals shown include unfiled device data. Post Anesthesia Patient Status Patient Evaluation: PACU. PACU/ICU Patient Condition: stable. Neurological Status: aware and responsive. Pulmonary Status: breathing comfortably on supplemental oxygen Airway Control: returned to baseline unsupported. Cardiovascular Status: stable. Pain Management: clinically adequate Postoperative Hydration: acceptable. Intraoperative Events: no significant anesthesia events Post Operative Nausea/Vomiting Status: no significant post operative nausea or vomiting Recommendation: continue current plan of care and further care per PACU/ICU/floor team. Anesthesia Observations No Documentation SIGNATURE: Shea Mckenna MD PATIENT NAME: Elia Weston DATE: May 23, 2025 TIME: 4:51 PM CSN: [id number] ECG COMPLETE Observed: 05/23/2025 4:35 PM Status: F Source: [facility] Ventricular Rate : 70 BPM P-R Interval : 424 ms QRS Duration : 64 ms Q-T Interval : 422 ms QTC Calculation(Bazett) : 455 ms Calculated R Assumption : 145 degrees Calculated T Assumption : 82 degrees NORMAL SINUS RHYTHM FIRST DEGREE AV BLOCK LOW VOLTAGE QRS, CONSIDER PULMONARY DISEASE, PERICARDIAL EFFUSION, OR NORMAL VARIANT ABNORMAL ECG Confirmed by fellow JEAN-PAUL ARCHER MD ([id number]) on 06/08/2025 5:17:17 AM Confirmed by NICKIE THOMAS MD ([id number]) on 06/08/2025 11:04:18 AM NAME : ELIA WESTON PID : [id number] : 1980 Gender : Male Race : ORD : [id number] Procedure Date : May 23 2025 16:35:19 Edit Date : Jun 08 2025 11:04:25 Diagnosis: NORMAL SINUS RHYTHM FIRST DEGREE AV BLOCK LOW VOLTAGE QRS, CONSIDER PULMONARY DISEASE, PERICARDIAL EFFUSION, OR NORMAL VARIANT ABNORMAL ECG Confirmed by fellow JEAN-PAUL ARCHER MD ([id number]) on 06/08/2025 5:17:17 AM Confirmed by NICKIE THOMAS MD ([id number]) on 06/08/2025 11:04:18 AM Test Reason : Arrhythmia Location : 340 : [id number] Overread By : NICKIE THOMAS MD Edited By : NICKIE THOMAS MD Referred By : , Acquired by : erlin rn, BRIEF OP NOT Observed: 05/23/2025 4:04 PM Status: COMPLETED Source: [facility] ID: [id number] Author: ELVI MASSEY MD Service: Cardiovascular Medicine Author Type: Fellow Type: Brief Op Note Filed: 05/23/2025 16:07 Note Text: BRIEF EP PROCEDURE NOTE: Procedure: Leadless pacemaker (Micra AV) Attending: Moncho Bowman MD, PhD Fellow: Elvi Massey MD, MS Outcome: Successful Access: LFV 27Fr Perclose and Figure of 8 suture Sedation: GA Complications: None Plan: - 4 hours bedrest. - Please remove pressure dressings upon completion of bedrest. - Left groin figure of 8 suture to be removed by the EP consult team tomorrow - Please obtain post-procedure 2V CXR once bedrest is complete (ordered) - Device check has been ordered. - Rest per primary and EP consult team Full report to follow in [facility] (Under Chart Review -> Cardiac) Elvi Massey MD, MS Cardiac Electrophysiology Fellow, PGY-7 Heart, Vascular, and Thoracic [facility] May 23, 2025 CASE MANAGEM Observed: 05/23/2025 2:08 PM Status: COMPLETED Source: [facility] HNO ID: [id number] Author: NHUNG KINCAID LISW Service: Care Management Author Type: Ppa Teacher Type: Care Mgt Progress Note Filed: 05/23/2025 14:14 Note Text: CARE MANAGEMENT PROGRESS NOTE SERVICE DATE: 05/23/2025 SERVICE TIME: 2:08 PM LOS: 32 days Admission Date: 04/20/2025 Post-Acute Discharge Planning Patient Goal(s): General wellness, Be able to go home Discharge Planning Participant(s): Patient Patient/Family Comments: Anticipated # of Days Until Discharge: 3 Transport at Discharge: Transportation Arrangements: Mechanical Engineering Manager Name: Pt reports he drove himself here and plans on driving home Destination: home Needs Prior to Discharge: To Be Determined Post-Acute Discharge Plan: Pt will need following physician for home care acceptance. Home care for home PT and wound care. Physician aware. SIGNATURE: PACO Gardner PATIENT NAME: Elia Weston DATE: May 23, 2025 TIME: 2:08 PM ANES PROCEDURE NOTE Observed: 05/23/2025 2:00 PM Status: COMPLETED Source: [facility] HNO ID: [id number] Author: NOAH KAPLAN APRN.FLIGHT SOFTWARE TEST ENGINEER Service: ? Author Type: Nurse Fitness Coordinator Type: Anesthesia Procedure Notes Filed: 05/23/2025 14:00 Note Text: ANESTHESIOLOGY PROCEDURE NOTE Airway General Information Procedure Start Time/Medication Administration: 05/23/2025 1:40 PM Procedure End Time: 05/23/2025 2:00 PM Patient location during procedure: OR Timeout Performed Pre-procedure: timeout performed Consent Obtained: Yes Patient identity confirmed: arm band and patient Staffing FLIGHT SOFTWARE TEST ENGINEER: Noah Kaplan APRN.FLIGHT SOFTWARE TEST ENGINEER Performed by: FLIGHT SOFTWARE TEST ENGINEER Indications and Patient Condition Indications for airway management: anesthesia Preoxygenated: yesPatient position: sniffing Method: asleep Difficult Mask: No Final Airway Details Final airway type: endotracheal airwayFinal Endotracheal Airway: ETT Cuffed: yes Successful intubation technique: video laryngoscopy Devices used: Hall Blade size: #4 ETT size (mm): 7.5 Measured from: lips Measurement (cm): 21 Cormack-Lehane Classification: grade I - full view of glottis Number of attempts at approach: 1 Airway not difficult SIGNATURE: Noah Kaplan APRN.CRNA PATIENT NAME: Elia Weston DATE: May 23, 2025 TIME: 2:00 PM CSN: [id number] PT ED Observed: 05/23/2025 1:00 PM Status: COMPLETED Source: [facility] HNO ID: [id number] Author: ORLY MARTINEZ RN Service: Nursing Author Type: Registered Nurse Type: Patient Education Filed: 05/23/2025 13:01 Note Text: THE FOLLOWING WAS EVALUATED Motivation To Learn: Interested Family/Significant Other Support: Unable to assess - Family not present Cognitive Ability: Alert and oriented Patient Learns Best By: Individual Instruction Verbal Instruction The Following Influencing Factors Were Barriers To This Education Session: None The Following Physical Limitations Were Barriers To This Education Session: None Instruction Provided To: Patient Procedure: Leadless Pacemaker Implant Pre-procedure information reviewed: Patient ID verified Procedure verified Physician verified Explanation of procedure Sedation level during procedure MD medication instructions from EP lab request Travel instructions/restrictions Scheduling information Possible same day discharge versus overnight hospital stay Check out time Family waiting area Physician contact with family after procedure Post Procedure Expectations reviewed: Inpatient hospital stay Post procedure antiarrhythmics and anticoagulation will be discussed with Physician, nurse practitioner or Physician mechanic assistant upon discharge Instructions for transmitting EKG to Monitoring Center 3 month follow up instructions Contact number for information and questions Patient Evaluation: Verbalizes Understanding Follow Up Plan: Follow up as directed by MD. Supplemental Material Given: None Instructed By Orly Martinez RN. In Department of [id number]. ANES PRE-OP Observed: 05/23/2025 12:50 PM Status: COMPLETED Source: [facility] HNO ID: [id number] Author: BRYAN JOHNS MD Service: ? Author Type: Anesthesiologist Type: Anesthesia Preprocedure Evaluation Filed: 05/23/2025 13:45 Note Text: ANESTHESIOLOGY DAY OF SURGERY NOTE : 1980 Procedure Information Anesthesia Start Date/Time: 05/23/25 1315 Procedure: TRANSCATHETER INSERTION OR REPLACEMENT PERMANENT LEADLESS PACEMAKER,RIGHT VENTRICULAR Location: EP 12 / EP LAB Surgeons: Jigar Hannah MD Estimated body mass index is 37.89 kg/m? as calculated from the following: Height as of this encounter: 177 cm (5' 9.69). Weight as of this encounter: 118.7 kg (261 lb 11 oz). Most recent hematocrit and potassium results: Hematocrit 26.1 05/23/2025 Hematocrit (POCT) 28 06/29/2023 Potassium 5.7 05/23/2025 Potassium (POCT) 6.4 06/29/2023 Relevant Problems ANESTHESIA (+) YEIMY (obstructive sleep apnea) CARDIO (+) A-V fistula (+) Acquired stenosis of superior vena cava (+) Arteriovenous graft stenosis, sequela (+) Atrial fibrillation (HCC) (+) CHB (complete heart block) ([facility]) (+) Clotted renal dialysis AV graft (+) Essential hypertension, benign (+) HTN (hypertension) (+) Intra-abdominal varices (+) Jugular vein occlusion, bilateral ([facility]) (+) Myocardial infarction ([facility]) (+) PAF (paroxysmal atrial fibrillation) ([facility]) (+) Paroxysmal atrial flutter ([facility]) (+) Pulmonary embolism ([facility]) (+) Second degree AV block, Mobitz type I (+) Stenosis of other vascular prosthetic devices, implants and grafts, initial encounter (+) 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 of procedure (+) Unspecified atherosclerosis of [place] arteries of extremities, right leg (+) Venous collateral circulation ENDO (+) Acquired hypothyroidism (+) Hypothyroidism GI (+) Gastroesophageal reflux disease without esophagitis -RENAL (+) Anemia due to chronic kidney disease, on chronic dialysis ([facility]) (+) Anemia of renal disease (+) Dialysis patient (+) ESRD (end stage renal disease) ([facility]) (+) ESRD (end stage renal disease) on dialysis ([facility]) (+) ESRD on hemodialysis ([facility]) (+) Renal osteodystrophy PULMONARY (+) YEIMY (obstructive sleep apnea) I - PHYSICAL EVALUATION AIRWAY Patient intubated: No. Tracheostomy tube not present Mallampati: IV. TM distance: >3 FB. Neck ROM: full ROM without neurological symptoms. Mouth opening: adequate. Short neck: no. Thick neck: yes DENTAL Dental findings: missing tooth/teeth and poor dentition. II - ANESTHESIA PLAN ASA Score: 4 Anesthetic Plan: general Airway type: ETT Beta Zbigniew Monitoring Plan Monitoring plan: standard ASA. Post Procedure Analgesic Plan Postoperative analgesic plan: multimodal analgesia and parenteral or oral opioids. Informed Consent Anesthetic risks, benefits, alternatives, personnel and consent discussed: yes. Patient / Responsible Democrat agrees to proceed: yes Patient / Surrogate agrees to blood products: blood products not planned Potential Anesthesia issues that may suggest increased risk of complications or contraindication to planned procedure: none. Vitals Value Taken Time BP 106/53 05/23/25 12:52 Pulse 72 05/23/25 12:52 Resp Temp SpO2 100 % 05/23/25 12:52 Facility-Administered Medications as of 05/23/2025 Medication Dose Route Frequency senna 17.2 mg tab(s) (SENOKOT) 17.2 mg ORAL/FEEDING TUBE BID polyethylene glycol 3350 17 g packet 17 g ORAL BID warfarin 5 mg tab(s) (COUMADIN) 5 mg ORAL ONCE - WARFARIN [START ON 05/24/2025] cinacalcet 30 mg tab(s) (SENSIPAR) 30 mg ORAL DAILY [COMPLETED] warfarin 4 mg tab(s) (COUMADIN) 4 mg ORAL/FEEDING TUBE ONCE - WARFARIN [COMPLETED] warfarin (COUMADIN) tab(s) 3 mg 3 mg ORAL/FEEDING TUBE ONCE - WARFARIN [COMPLETED] warfarin (COUMADIN) tab(s) 3 mg 3 mg ORAL/FEEDING TUBE ONCE - WARFARIN diazePAM 2.5 mg injection (VALIUM) 2.5 mg INTRAVENOUS BID PRN [COMPLETED] diazePAM 2.5 mg injection (VALIUM) 2.5 mg INTRAVENOUS ONCE [COMPLETED] atropine 0.5 mg injection 0.5 mg INTRAVENOUS ONCE [COMPLETED] diazePAM 2.5 mg injection (VALIUM) 2.5 mg INTRAVENOUS ONCE [COMPLETED] warfarin 2 mg tab(s) (COUMADIN) 2 mg ORAL/FEEDING TUBE ONCE - WARFARIN [COMPLETED] warfarin 2 mg tab(s) (COUMADIN) 2 mg ORAL/FEEDING TUBE ONCE - WARFARIN [COMPLETED] warfarin 2 mg tab(s) (COUMADIN) 2 mg ORAL/FEEDING TUBE ONCE - WARFARIN [COMPLETED] warfarin 3 mg tab(s) (COUMADIN) 3 mg ORAL/FEEDING TUBE ONCE - WARFARIN [COMPLETED] fentaNYL 50 mcg/mL 25 mcg injection (SUBLIMAZE) 25 mcg INTRAVENOUS ONCE [COMPLETED] sodium chloride 0.9 % (flush) 2-10 mL (BD POSIFLUSH) 2-10 mL INTRAVENOUS ONCE busPIRone 5 mg tab(s) (BUSPAR) 5 mg ORAL DAILY oxyCODONE IR 15 mg tab(s) (ROXICODONE) 15 mg ORAL q 4 H PRN [COMPLETED] fentaNYL 50 mcg/mL 25 mcg injection (SUBLIMAZE) 25 mcg INTRAVENOUS ONCE [COMPLETED] warfarin 3 mg tab(s) (COUMADIN) 3 mg ORAL/FEEDING TUBE ONCE [] lidocaine (PF) 10 mg/mL (1 %) 10-100 mg injection (XYLOCAINE) 1-10 mL INTRADERMAL DIRECTED PRN [COMPLETED] warfarin 3 mg tab(s) (COUMADIN) 3 mg ORAL/FEEDING TUBE ONCE - WARFARIN [COMPLETED] warfarin (COUMADIN) tab(s) 3.5 mg 3.5 mg ORAL/FEEDING TUBE ONCE - WARFARIN melatonin 3 mg tab(s) 3 mg ORAL/FEEDING TUBE AT BEDTIME PRN Darbepoetin Osito In Polysorbat 60 mcg injection (ARANESP) 60 mcg SUBCUTANEOUS q Wed [COMPLETED] warfarin 3 mg tab(s) (COUMADIN) 3 mg ORAL ONCE - WARFARIN [] sodium chloride 0.9 % (flush) 2-10 mL (BD POSIFLUSH) 2-10 mL INTRAVENOUS ONCE [COMPLETED] phytonadione (vitamin K1) 1 mg in D5W 50 mL 1 mg INTRAVENOUS ONCE [COMPLETED] melatonin 9 mg tab(s) 9 mg ORAL/FEEDING TUBE ONCE [COMPLETED] warfarin 5 mg tab(s) (COUMADIN) 5 mg ORAL/FEEDING TUBE ONCE - WARFARIN fentaNYL 50 mcg/mL 50 mcg injection (SUBLIMAZE) 50 mcg INTRAVENOUS DAILY PRN [COMPLETED] warfarin 5 mg tab(s) (COUMADIN) 5 mg ORAL/FEEDING TUBE ONCE - WARFARIN [COMPLETED] warfarin 10 mg tab(s) (COUMADIN) 10 mg ORAL ONCE - WARFARIN [COMPLETED] warfarin 10 mg tab(s) (COUMADIN) 10 mg ORAL ONCE - WARFARIN [COMPLETED] fentaNYL 50 mcg/mL 25 mcg injection (SUBLIMAZE) 25 mcg INTRAVENOUS ONCE [COMPLETED] warfarin 7.5 mg tab(s) (COUMADIN) 7.5 mg ORAL ONCE - WARFARIN vitamin A 10,000 Units cap(s) (AQUASOL A) 10,000 Units ORAL DAILY [COMPLETED] warfarin 7.5 mg tab(s) (COUMADIN) 7.5 mg ORAL ONCE - WARFARIN [COMPLETED] warfarin 6 mg tab(s) (COUMADIN) 6 mg ORAL ONCE - WARFARIN [COMPLETED] warfarin 5 mg tab(s) (COUMADIN) 5 mg ORAL ONCE - WARFARIN warfarin order for discharge OTHER PRN ascorbic acid 500 mg chewable tab(s) 500 mg ORAL DAILY pyridoxine (vitamin B6) 50 mg tab(s) (VITAMIN B6) 50 mg ORAL DAILY [COMPLETED] heparin nomogram - NO INITIAL BOLUS OTHER ONCE (heparin bolus) fentaNYL 50 mcg/mL 25 mcg injection (SUBLIMAZE) 25 mcg INTRAVENOUS DAILY PRN [COMPLETED] warfarin 3 mg tab(s) (COUMADIN) 3 mg ORAL ONCE - WARFARIN [COMPLETED] warfarin 5 mg tab(s) (COUMADIN) 5 mg ORAL ONCE - WARFARIN [COMPLETED] fentaNYL 50 mcg/mL 25 mcg injection (SUBLIMAZE) 25 mcg INTRAVENOUS ONCE [COMPLETED] warfarin 5 mg tab(s) (COUMADIN) 5 mg ORAL/FEEDING TUBE ONCE - WARFARIN [COMPLETED] HYDROmorphone 0.2 mg injection (DILAUDID) 0.2 mg INTRAVENOUS ONCE calcitriol 1.5 mcg cap(s) (ROCALTROL) 1.5 mcg ORAL MO-WE- [COMPLETED] warfarin 2.5 mg tab(s) (COUMADIN) 2.5 mg ORAL/FEEDING TUBE ONCE - WARFARIN [] heparin iv infusion 25,000 units in NaCl 0.45% 250 mL LOW DOSE/ACS NOMOGRAM 0-3,000 Units/hr INTRAVENOUS CONTINUOUS And [] heparin RATE CHANGE bolus 1,000-4,000 Units for subtherapeutic PTTAC results 1,000-4,000 Units INTRAVENOUS PRN [] heparin nomogram - NO INITIAL BOLUS OTHER ONCE (heparin bolus) [COMPLETED] phytonadione (vitamin K1) 5 mg tab(s) (MEPHYTON) 5 mg ORAL ONCE [COMPLETED] vancomycin iv piggyback 1 g in D5W 200 mL (VANCOCIN) 1 g INTRAVENOUS ONCE [COMPLETED] HYDROmorphone 1 mg tab(s) (DILAUDID) 1 mg ORAL ONCE [COMPLETED] HYDROmorphone 1 mg tab(s) (DILAUDID) 1 mg ORAL ONCE [COMPLETED] oxyCODONE IR 5 mg tab(s) (ROXICODONE) 5 mg ORAL ONCE [COMPLETED] acetaminophen 1,000 mg tab(s) (TYLENOL) 1,000 mg ORAL ONCE acetaminophen 650 mg tab(s) (TYLENOL) 650 mg ORAL q 6 H PRN aspirin 81 mg chewable tab(s) 81 mg ORAL DAILY midodrine 20 mg tab(s) (PROAMATINE) 20 mg ORAL q 8 H [COMPLETED] HYDROmorphone 0.4 mg injection (DILAUDID) 0.4 mg INTRAVENOUS ONCE [] enteric contrast (radiology procedure) ORAL DIRECTED PRN [COMPLETED] lactated ringers 250 mL iv bolus 250 mL INTRAVENOUS ONCE sevelamer carbonate 800 mg tab(s) (RENVELA) 800 mg ORAL TID w MEALS [COMPLETED] lactated ringers 250 mL iv bolus 250 mL INTRAVENOUS ONCE [COMPLETED] lactated ringers 500 mL iv bolus 500 mL INTRAVENOUS ONCE [COMPLETED] fentaNYL 50 mcg/mL 25 mcg injection (SUBLIMAZE) 25 mcg INTRAVENOUS ONCE [COMPLETED] vancomycin iv piggyback 1 g in D5W 200 mL (VANCOCIN) 1 g INTRAVENOUS ONCE [COMPLETED] HYDROmorphone 1 mg tab(s) (DILAUDID) 1 mg ORAL ONCE [COMPLETED] lactated ringers 500 mL iv bolus 500 mL INTRAVENOUS ONCE [COMPLETED] fentaNYL 50 mcg/mL 25 mcg injection (SUBLIMAZE) 25 mcg INTRAVENOUS ONCE [COMPLETED] vancomycin 1.75 g in D5W 500 mL (VANCOCIN) 0.015 g/kg/dose INTRAVENOUS ONCE NaCl 0.9% iv flush bag 20 mL INTRAVENOUS PRN [COMPLETED] fentaNYL 50 mcg/mL 25 mcg injection (SUBLIMAZE) 25 mcg INTRAVENOUS ONCE [COMPLETED] midodrine 20 mg tab(s) (PROAMITINE) 20 mg ORAL ONCE [COMPLETED] fentaNYL 50 mcg/mL 25 mcg injection (SUBLIMAZE) 25 mcg INTRAVENOUS ONCE Outpatient Medications as of 05/23/2025 Medication Sig aspirin 81 mg chewable tablet Take 81 mg by mouth. cinacalcet (SENSIPAR) 60 mg tablet Take 1 tablet by mouth once daily. calcitriol (ROCALTROL) 0.5 mcg capsule Take 3 capsules by mouth every Friday, Friday, and Friday. B Complex-Vitamin C-Folic Acid (JOHNSON-BRENDA) 0.8 mg tab Take 1 tablet by mouth once daily. midodrine (PROAMATINE) 10 mg tablet Take 2 tablets by mouth every 8 hours. melatonin 3 mg tablet Take 3 tablets by mouth daily at bedtime. warfarin (COUMADIN) 2.5 mg tablet Take 1 tablet by mouth once daily. Darbepoetin Osito In Polysorbat (ARANESP) 60 mcg/0.3 mL syrg Inject 0.3 mL subcutaneously every Friday. (Patient not taking: Reported on 01/25/2025) sevelamer carbonate (RENVELA) 800 mg tablet Take 3 tablets by mouth three times a day with meals. (Patient not taking: Reported on 01/25/2025) polyethylene glycol 3350 (MIRALAX) 17 gram packet Take 1 Packet by mouth once daily. Dissolve dose in 4 - 8 ounces of liquid and take as directed. oxyCODONE IR (ROXICODONE) 10 mg tab Take 10 mg by mouth every 8 hours as needed for pain. I have interviewed and examined the patient. I have reviewed the medical record and/or the pre-anesthesia evaluation, pertinent labs, and test results. This contains updated information obtained within 48 hours of Surgery/Procedure. SIGNATURE: Bryan Johns MD PATIENT NAME: Elia Weston DATE: May 23, 2025 TIME: 1:44 PM CSN: [id number] THERAPY NT Observed: 05/23/2025 11:22 AM Status: COMPLETED Source: [facility] ID: [id number] Author: LUCILLE MURPHY PT Service: Physical Therapy Author Type: Bicycle Subassembler Type: Therapy (PT/OT/Speech/Resp) Filed: 05/23/2025 12:06 Note Text: Attestation signed by Lucille Murphy PT at 05/23/2025 12:06 PM I reviewed and agree with the documentation corresponding to this therapy visit. SIGNATURE: Lucille Murphy PT DATE: May 23, 2025 TIME: 12:06 PM PHYSICAL THERAPY MISSED VISIT SERVICE DATE: 05/23/2025 SERVICE TIME: 1122 ROOM: [place] [address] (Q6-1 Hemodialysis) Patient not seen due to Test / Procedure, HD at this time. Per [facility]: Plan for pacemaker this afternoon SIGNATURE: Artie Chi PTA PATIENT NAME: Elia Weston DATE: May 23, 2025 TIME: 11:23 AM CONSULT PROG Observed: 05/23/2025 11:11 AM Status: COMPLETED Source: [facility] ID: [id number] Author: GIBSON ABBOTT APRN.MIKI Service: Nephrology Author Type: Nurse Practitioner Type: Consult Progress Note Filed: 05/23/2025 11:16 Note Text: CONSULT PROGRESS NOTE NEPHROLOGY Q6 SERVICE SERVICE DATE: 05/23/2025 SERVICE TIME: 11:11 AM SUBJECTIVE INTERVAL HISTORY: -Patient seen on dialysis, single evaluation. Orders confirmed and documented per LEONEL. Resting comfortable on RA with no new complaints. -Plan for pacemaker this afternoon MEDICATIONS: Current Facility-Administered Medications Medication Dose Route Frequency NaCl 0.9% iv flush bag 20 mL INTRAVENOUS PRN acetaminophen 650 mg tab(s) (TYLENOL) 650 mg ORAL q 6 H PRN aspirin 81 mg chewable tab(s) 81 mg ORAL DAILY midodrine 20 mg tab(s) (PROAMATINE) 20 mg ORAL q 8 H cinacalcet 60 mg tab(s) (SENSIPAR) 60 mg ORAL DAILY sevelamer carbonate 800 mg tab(s) (RENVELA) 800 mg ORAL TID w MEALS calcitriol 1.5 mcg cap(s) (ROCALTROL) 1.5 mcg ORAL MO-WE- fentaNYL 50 mcg/mL 25 mcg injection (SUBLIMAZE) 25 mcg INTRAVENOUS DAILY PRN warfarin order for discharge OTHER PRN ascorbic acid 500 mg chewable tab(s) 500 mg ORAL DAILY pyridoxine (vitamin B6) 50 mg tab(s) (VITAMIN B6) 50 mg ORAL DAILY vitamin A 10,000 Units cap(s) (AQUASOL A) 10,000 Units ORAL DAILY fentaNYL 50 mcg/mL 50 mcg injection (SUBLIMAZE) 50 mcg INTRAVENOUS DAILY PRN melatonin 3 mg tab(s) 3 mg ORAL/FEEDING TUBE AT BEDTIME PRN Darbepoetin Os[place] In Polysorbat 60 mcg injection (ARANESP) 60 mcg SUBCUTANEOUS q Wed oxyCODONE IR 15 mg tab(s) (ROXICODONE) 15 mg ORAL q 4 H PRN busPIRone 5 mg tab(s) (BUSPAR) 5 mg ORAL DAILY diazePAM 2.5 mg injection (VALIUM) 2.5 mg INTRAVENOUS BID PRN senna 17.2 mg tab(s) (SENOKOT) 17.2 mg ORAL/FEEDING TUBE BID polyethylene glycol 3350 17 g packet 17 g ORAL BID warfarin 5 mg tab(s) (COUMADIN) 5 mg ORAL ONCE - WARFARIN OBJECTIVE PHYSICAL EXAM: BP 126/85 Pulse 79 Temp 36.5 ?C (97.7 ?F) (Oral) Resp 18 Ht 177 cm (5' 9.69) Wt 118.7 kg (261 lb 11 oz) SpO2 97% BMI 37.89 kg/m? Intake/Output Summary (Last 24 hours) at 05/23/2025 1111 Last data filed at 05/23/2025 0607 Gross per 24 hour Intake 350 ml Output 0 ml Net 350 ml Constitutional:No acute distress, awake, alert and responsive Cardiovascular:Regular rate and rhythm 1+ BLE edema Respiratory:Normal respiratory effort on RA Abdomen:Soft, non-tender, non-distended Psychiatric: Alert and oriented x self, place, time, and setting Normal mood/affect Vascular Access: Hemodialysis catheter location: Right Tunneled internal jugular. Exit site demonstrates: normal findings DATA: Diagnostic tests reviewed for today's visit: Recent Labs 05/23/25 0725 05/22/25 0905 05/21/25 0414 05/20/25 0713 05/19/25 1828 05/18/25 0130 05/17/25 0715 NA 140 137 137 139 136 < > 138 K 5.7* 5.2* 4.6 5.4* 4.6 < > 5.7* CHLOR 98 99 97* 99 97* < > 99 CO2 25 23 27 25 25 < > 22 BUN 25* 17 10 20 14 < > 34* CREAT 7.96* 6.72* 4.64* 6.81* 5.89* < > 9.50* GLUC 84 76 92 95 89 < > 77 ANION 17* 15 13 15 14 < > 17* CA 7.2* 7.8* 8.1* 7.3* 7.6* < > 7.2* MG -- -- -- -- -- -- 2.5* < > = values in this interval not displayed. Recent Labs 05/23/25 0725 05/22/25 0905 05/21/25 0414 WBC 4.56 4.55 4.92 HB 7.9* 7.8* 7.8* HCT 26.1* 25.9* 25.5* PLT 202 189 190 ASSESSMENT: Mr. 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 Labs on presentation significant for elevated lactic acid, leukocytosis, anemia and supratherapeutic INR. Of note, his previous admission 10/12/2024-11/02/2024 was also for pain and bleeding of the wounds/skin ulcers. Biopsy was consistent with reactive ischemic changes at the time without features of Polyderma Gangrenosum or calciphylaxis. Patient was admitted under general internal medicine team for further management. Course c/b new 2nd degree AV shantell, charlie type 1. Plan for pacemaker 05/23 Nephrology consulted for ESR management. 1.ESRD -Etiology: HTN Renal Biopsy 2005 for renal failure of undetermined etiology. 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 using an angioplasty balloon per IR 2.Electrolytes/acid-base: -Hyperkalemia 3.Hypertension/Volume Status: -BP 115/41 -Midodrine 20mg q8h -Pre-weight: 118.8kg EDW: 114kg -Targeting 2.5L UF with crit line assist -Hypervolemia 4.Anemia of CKD: -Hgb below ESRD goal -Iron Stores: ferritin 996 TSAT 15.4- deferring IV iron with IE work up -ANABELLA: Weekly Aranesp 5.Secondary renal hyperparathyroidism: -Calcitriol 1.5mcg TIW, Sensipar 60mg daily, Revela 800mg TID with meals -PTH 03/2025 578 PLAN: -IHD today 4.5 hours, 2K bath, 2.5L UF -Next IHD Friday -EDW 114kg -Weekly Aranesp -Update PTH and phos, will decrease sensipar to 30mg daily given hypocalcemia Standard ESRD recommendations and precautions: - Strict IANDOs and Daily weight - Consider a RENAL Diet for HD patients - Fluid restriction < 1 L - Start Nephrocap or other renal multivitamin to replace water-soluble vitamins lost during dialysis - Avoid Lovenox, Gadolinium (MRI contrast), Demerol, Morphine, K-containing IVF, Mg- or Phos- containing enemas -Dose meds eGFR<10 Outpatient dialysis disposition plan: contact [phone] and ask to speak with the director of front office as needed for assistance with post-discharge arrangements. Please DO NOT schedule patient for a nephrology follow up appointment. Kidney care will be provided by the primary data warehousing engineer at their dialysis unit upon hospital discharge. Disclosures: Parts of the current progress note may have been copied from a previous note. SIGNATURE: Gibson Abbott APRN.MIKI PATIENT NAME: Elia Weston DATE: May 23, 2025 TIME: 11:11 AM PAGER: [phone] FOR AFTER HOUR CONCERNS BETWEEN 5PM - 7AM CONTACT ON-CALL NEPHROLOGY FELLOW MIRIAM NICHOLS BLD AUTO Collected: 7:25 AM Status: F Source: [facility] Order Comment: Specimen Type : BLOOD SPECIMEN Ordering Facility: [facility] Address: [address] [place] [address] TYPE CODE TESTS RESULT OUT OF RANGE REFERENCE UNITS LAB 6690-2(INC) WBC # Bld Auto 4.56 3.70-11.00 k/uL LAB 789-8(INC) RBC # Bld Auto 2.74 Low 4.20-6.00 m/uL LAB 718-7(INC) Hgb Bld-mCnc 7.9 Low 13.0-17.0 g/dL LAB 4544-3([facility]) Hct VFr Bld Auto 26.1 Low 39.0-51.0 % LAB 787-2(INC) MCV RBC Auto 95.3 80.0-100.0 fL LAB 785-6([facility]) MCH RBC Qn Auto 28.8 26.0-34.0 pg LAB 786-4([facility]) MCHC RBC Auto-mCnc 30.3 Low 30.5-36.0 g/dL LAB 62312-5([facility]) RDW RBC-Rto 18.6 High 11.5-15.0 % LAB 777-3(INC) Platelet # Bld Auto 202 150-400 k/uL LAB 31625-8([facility]) PMV Bld Auto 10.9 9.0-12.7 fL LAB 771-6([facility]) nRBC # Bld Auto <0.01 <0.01 k/uL Performed By: #### 2731-8, 8410-2 #### [facility] CLIA [id number] [address] [place] [id number] [place] PTH-INTACT SERPL-MCNC Collected: 05/23/2025 7:25 AM Status: F Source: [facility] Order Comment: Specimen Type : BLOOD SPECIMEN Ordering Facility: [facility] Address: [address] [place] [address] TYPE CODE TESTS RESULT OUT OF RANGE REFERENCE UNITS LAB 2731-8([facility]) PTH-Intact SerPl-mCnc 181 High 15-65 pg/mL Performed By: #### 2731-8, 5 8410-2 #### [facility] CLIA [id number] [address] [place] [address] [place] [address] [place] COMP METAB 2000 PNL SERPL Collected: 7:25 AM Status: F Source: [facility] Order Comment: Specimen Type : BLOOD SPECIMEN Ordering Facility: [facility] Address: [address] [place] [address] TYPE CODE TESTS RESULT OUT OF RANGE REFERENCE UNITS LAB 2885-2(LOINC) Prot SerPl-mCnc 7.1 6.3-8.0 g/dL LAB 1751-7(LOINC) Albumin SerPl-mCnc 3.5 Low 3.9-4.9 g/dL LAB 40219-3(LOINC) Calcium SerPl-mCnc 7.2 Low 8.5-10.2 mg/dL LAB 1975-2(LOINC) Bilirub SerPl-mCnc 0.2 0.2-1.3 mg/dL LAB 6768-6(LOINC) ALP SerPl-cCnc 148 High 38-113 U/L LAB 1920-8(LOINC) AST SerPl-cCnc 18 14-40 U/L LAB 1742-6(LOINC) ALT SerPl-cCnc 10 10-54 U/L LAB 2345-7(LOINC) Glucose SerPl-mCnc 84 74-99 mg/dL Result Comment: The [place] Diabetes Association (ADA) provides guidance for cutoff values for fasting glucose and random glucose. The ADA defines fasting as no caloric intake for at least 8 hours. Fasting plasma glucose results between 100 to 125 mg/dL indicate increased risk for diabetes (prediabetes). Fasting plasma glucose results greater than or equal to 126 mg/dL meet the criteria for diagnosis of diabetes. In the absence of unequivocal hyperglycemia, results should be confirmed by repeat testing. In a patient with classic symptoms of hyperglycemia or hyperglycemic crisis, random plasma glucose results greater than or equal to 200 mg/dL meet the criteria for diagnosis of diabetes. Reference: Standards of Medical Care in Diabetes 2016, [place] Diabetes Association. Diabetes Care. 2016.39(Suppl 1). LAB 3094-0(LOINC) BUN SerPl-mCnc 25 High 9-24 mg/dL LAB 2160-0(LOINC) Creat SerPl-mCnc 7.96 High 0.73-1.22 mg/dL Result Comment: Result reche cked. LAB 2951-2(LOINC) Sodium SerPl-sCnc 140 136-144 mmol/L LAB 2823-3(LOINC) Potassium SerPl-sCnc 5.7 High 3.7-5.1 mmol/L LAB 2075-0(LOINC) Chloride SerPl-sCnc 98 98-107 mmol/L LAB 2027-9(LOINC) CO2 SerPl-sCnc 25 22-30 mmol/L LAB 85807-7(LOINC) Anion Gap SerPl-sCnc 17 High 8-15 mmol/L LAB 19103-3(LOINC) eGFRcr SerPlBld CKD-EPI 2020 8 Low >=60 mL/min/1. 73m??? Result Comment: Estimated Gl omerular Filtration Rate (eGFR) is calculated using the 2020 CKD-EPI creatinine equation. This equation utilizes serum creatinine, sex, and age as parameters. The creatinine assay has traceable calibration to isotope dilution-mass spectrometry. Refer to KDIGO guidelines for clinical interpretation. In patients with unstable renal function, e.g. those with acute kidney injury, the eGFR may not accurately reflect actual GFR. Performed By: #### 2777-1, 2 8 #### [facility] CLIA [id number] [address] [place] [address] [place] PHOSPHATE SERPL-MCNC Collected: 05/23/2025 7:25 AM S tatus: F Source: [facility] Order Comment: Specimen Type : BLOOD SPECIMEN Ordering Facility: [facility] Address: [address] [place] [address] TYPE CODE TESTS RESULT OUT OF RANGE REFERENCE UNITS LAB 2777-1([facility]) Phosphate SerPl-mCnc 4.3 2.7-4.8 mg/dL Performed By: #### 2777-1, 2 4322-8 #### [facility] CLIA [id number] [address] [place] [address] [place] PT PNL PPP Collected: 05/23/2025 7:25 AM Status: F Source: [facility] Order Comment: Specimen Type : BLOOD SPECIMEN Ordering Facility: [facility] Address: [address] [place] [address] TYPE CODE TESTS RESULT OUT OF RANGE REFERENCE UNITS LAB 5902-2(LOINC) Prothrombin time 17.1 High 9.7-13.0 sec LAB 6301-6(LOINC) INR PPP 1.6 High 0.9-1.3 Result Comment: Vitamin K An tagonist (VKA) Therapeutic Range: INR 2 to 3 (Target INR of 2.5) Note: For patients treated with VKA drugs, such as warfarin, the [place] [employer] 2012 Guideline recommends a therapeutic INR range of 2 to 3 (target INR of 2.5). This recommendation includes high-risk patients with antiphospholipid syndrome with previous arterial or venous thromboembolism, current-generation mechanical or bioprosthetic aortic heart valve replacement. Note: Patients with mechanical aortic valve replacement and additional risk factors for thromboembolic events (atrial fibrillation, previous thromboembolism, LV dysfunction, hypercoagulable conditions) or an older generation mechanical AVR (i.e., ball in-Cage) or any mechanical MVR should have a INR therapeutic range of 2.5 to 3.5 (target INR of 3). Guyatt GH, et al. Chest 2012, 141:7S-47S Kevin RA, et al. [facility] 2017, 70: 252-289 Performed By: #### 52619-2 # ### [facility] CLIA [id number] [address] [place], [place] [id number] [address] [place] PROGRESS Observed: 05/23/2025 5:45 AM Status: COMPLETED Source: [facility] HNO ID: [id number] Author: BEULAH RAMEY MD Service: General Internal Medicine Author Type: Physician Type: Progress Notes Filed: 05/23/2025 16:08 Note Text: DEPARTMENT OF HOSPITAL MEDICINE PROGRESS NOTE SERVICE DATE: 05/23/2025 SERVICE TIME: 1:21 PM Hospital Medicine/Primary Attending: Beulah Ramey MD NIGHT AND WEEKEND COVERAGE: [facility] COVERAGE: Nights: [phone], please page Team Jeffrey Haq; overnight/admitting pager [phone] Subjective Chief Complaint: Pain and chronic chest wound bleeding INTERVAL HPI: Mr. 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 Patient was hospitalized in September 2024 to October 2024 for pain and bleeding from the wounds. Patient was seen by dermatology back then for his skin ulcers. Biopsy performed and was most c/w reactive ischemic changes without features of Pyoderma Gangrenosum or Calciphylaxis. Now, plan for venoplasty with IR pending improvement in INR. Dermatology consulted and underwent steroid trial at wound edge. He was bridged to warfarin while here given his history of mechanical valve. Stay further complicated by new bradycardia, found to have Mobitz 1 second-degree AV block for which cardiology/EP was consulted. Overnight Events: - No acute events overnight - One BP reading of 90/40 overnight, otherwise HDS - Patient denied fever, chills, n/v/d, chest pain, shortness of breath, abdominal pain - Patient NPO at midnight for leadless pacemaker with a EP - Daily dressing changes with plastics. Pain control with oxycodone 15 mg every 4 hours as needed (required 3x), IV fentanyl, diazepam. - Zero BM charted. On Miralax 17 g Plan for today: - Leadless pacer with EP 05/23 - HD today - Warfarin dose adjustment 5 mg - Follow up morning INR Current Facility-Administered Medications Medication Dose Route Frequency NaCl 0.9% iv flush bag 20 mL INTRAVENOUS PRN acetaminophen 650 mg tab(s) (TYLENOL) 650 mg ORAL q 6 H PRN aspirin 81 mg chewable tab(s) 81 mg ORAL DAILY midodrine 20 mg tab(s) (PROAMATINE) 20 mg ORAL q 8 H sevelamer carbonate 800 mg tab(s) (RENVELA) 800 mg ORAL TID w MEALS calcitriol 1.5 mcg cap(s) (ROCALTROL) 1.5 mcg ORAL - fentaNYL 50 mcg/mL 25 mcg injection (SUBLIMAZE) 25 mcg INTRAVENOUS DAILY PRN warfarin order for discharge OTHER PRN ascorbic acid 500 mg chewable tab(s) 500 mg ORAL DAILY pyridoxine (vitamin B6) 50 mg tab(s) (VITAMIN B6) 50 mg ORAL DAILY vitamin A 10,000 Units cap(s) (AQUASOL A) 10,000 Units ORAL DAILY fentaNYL 50 mcg/mL 50 mcg injection (SUBLIMAZE) 50 mcg INTRAVENOUS DAILY PRN melatonin 3 mg tab(s) 3 mg ORAL/FEEDING TUBE AT BEDTIME PRN Darbepoetin [place] In Polysorbat 60 mcg injection (ARANESP) 60 mcg SUBCUTANEOUS q Wed oxyCODONE IR 15 mg tab(s) (ROXICODONE) 15 mg ORAL q 4 H PRN busPIRone 5 mg tab(s) (BUSPAR) 5 mg ORAL DAILY diazePAM 2.5 mg injection (VALIUM) 2.5 mg INTRAVENOUS BID PRN senna 17.2 mg tab(s) (SENOKOT) 17.2 mg ORAL/FEEDING TUBE BID polyethylene glycol 3350 17 g packet 17 g ORAL BID warfarin 5 mg tab(s) (COUMADIN) 5 mg ORAL ONCE - WARFARIN [START ON 05/24/2025] cinacalcet 30 mg tab(s) (SENSIPAR) 30 mg ORAL DAILY Objective PHYSICAL EXAM: BP 106/53 Pulse 72 Temp (Src) 97.7 (Oral) Resp 18 Ht 5' 9.685 (1.77m) Wt 261 lb 11 oz (118.7kg) SpO2 100% BMI 37.89 kg/(m2). O2 Therapy: Room Air Physical Exam Performed General AANDO x4, cooperative Skin: Right and left anterior and posterior chest wounds, no purulent discharge Lungs: Clear to auscultation bilaterally, no wheezes or crackles Cardiac: RRR, normal S1, S2, no S3, S4, no murmurs Abdomen: Soft, nontender, BS normal, no masses Lines, Drains, and Airways Line Duration Peripheral 04/26/25 [facility] Right Forearm 20 Gauge 26 days Dialysis / Apheresis Double Lumen 04/29/25 100[facility] Tunneled Right Internal Jugular 24 days DATA: Latest Ref Rng AND Units 05/21/2025 05/22/2025 05/23/2025 CBC WBC 3.70 - 11.00 k/uL 4.92 4.55 4.56 RBC 4.20 - 6.00 m/uL 2.74 2.67 2.74 Hemoglobin 13.0 - 17.0 g/dL 7.8 7.8 7.9 Hematocrit 39.0 - 51.0 % 25.5 25.9 26.1 MCV 80.0 - 100.0 fL 93.1 97.0 95.3 MCH 26.0 - 34.0 pg 28.5 29.2 28.8 MCHC 30.5 - 36.0 g/dL 30.6 30.1 30.3 RDW-CV 11.5 - 15.0 % 19.2 18.8 18.6 Platelet Count 150 - 400 k/uL 190 189 202 MPV 9.0 - 12.7 fL 10.3 10.4 10.9 Latest Ref Rng AND Units 05/21/2025 05/22/2025 05/23/2025 CMP Sodium 136 - 144 mmol/L 137 137 140 Potassium 3.7 - 5.1 mmol/L 4.6 5.2 5.7 Chloride 98 - 107 mmol/L 97 99 98 CO2 22 - 30 mmol/L 27 23 25 Glucose 74 - 99 mg/dL 92 76 84 BUN 9 - 24 mg/dL 10 17 25 Creatinine 0.73 - 1.22 mg/dL 4.64 6.72 7.96 EGFR >=60 mL/min/1.73m? 15 10 8 Protein, Total 6.3 - 8.0 g/dL 7.6 6.9 7.1 Albumin 3.9 - 4.9 g/dL 3.7 3.4 3.5 Calcium 8.5 - 10.2 mg/dL 8.1 7.8 7.2 Bilirubin, Total 0.2 - 1.3 mg/dL 0.3 0.3 0.2 AST 14 - 40 U/L 23 20 18 ALT 10 - 54 U/L 11 10 10 Alkaline Phosphatase 38 - 113 U/L 157 144 148 Transthoracic echocardiogram 05/06/25: EF: 60%, left ventricular hypertrophy, right ventricle normal, trace tricuspid valve regurgitation, trace pulmonic valve regurgitation, no pericardial effusion, aorta normal in size CXR 04/21/25: TDC with tip in RA. Increase of perihilar and basilar opacities with volume loss, suggesting atelectasis, possible underlying edema/inflammation. Blunting of L CP angle, which may represent tiny effusion or pleural thickening. CT A/P 04/22/25: No abdominal or pelvic subcutaneous fluid collection of gas. Redemonstrated diffuse subcutaneous extensive abdominal wall collaterals, similar to prior CTA 10/17/2024. CT chest 04/22/25: extensive chest wall collaterals, few areas of skin ulceration, no areas of drainable fluid collection. Findings consistent with central venous stenoses. Few patchy groundglass opacities, may be related to mild pulm edema YONATHAN 05/18/25: Impression CONCLUSIONS: - Exam indication: ?Endocarditis - The left ventricle is normal in size. There is mild left ventricular hypertrophy. Left ventricular systolic function is normal. EF = 60 ? 5% (visual est.) - The right ventricle is normal in size. Right ventricular systolic function is normal. - The left atrial cavity is dilated. - The right atrial cavity is dilated. - Post mitral valve replacement. On-X prosthetic mitral valve (size #25). - No echocardiographic evidence of endocarditis There is trace (trace - 1+) mitral valve regurgitation. - There is moderate (2+) tricuspid valve regurgitation. - The patient has not had a prior CC echocardiographic exam for comparison. Assessment/Plan Problem List Assessment AND Plan Bleeding from open wound of chest wall, right, initial encounter Secondary hyperparathyroidism, renal (HCC) ESRD on hemodialysis (HCC) History of non-ST elevation myocardial infarction (NSTEMI) Vitamin D deficiency S/P MVR (mitral valve replacement) Supratherapeutic INR Atrial fibrillation (HCC) Acute on chronic blood loss anemia Adjustment disorder with depressed mood Acquired hypothyroidism Acquired stenosis of superior vena cava Venous collateral circulation Status post Maze operation for atrial fibrillation Ulcers, venous (HCC) Wounds, multiple Anemia due to multiple mechanisms Hemorrhage from open wound of left chest wall Open chest wound, right, sequela Open chest wound, left, sequela Back wound, unspecified laterality, sequela Open wound of abdomen Open wound of right thigh Bleeding from wound Difficult intravenous access Hypervolemia Skin ulcers (HCC) Vitamin C deficiency Vitamin A deficiency Vitamin B6 deficiency Second degree AV block, Mobitz type I Impaired skin integrity HOSPITAL COURSE: Elia Weston is a 45 year old male with extensive PMH, significant for ESRD on HD (MWF) last session 04/18 (skipped Friday since he came to ED), CAD s/p CABG, severe MS s/p MVR on Warfarin (goal INR of 2.5-3.5), pAfib s/p maze procedure and RADHA clip and chronic chest/abdominal/back wounds (3 years) likely secondary to ischemia in context of SVC syndrome and multiple thrombosis, who presented to the ED with 1-day of left chronic chest wound bleeding. Admitted for management of bleeding, and on transfer to [facility], patient began to have significant bleeding from R chest wound. Continuous pressure was applied and bleeding stopped. Now s/p FFP and RBC transfusions as appropriate. Initially started on Vanc/Zosyn given elevated ESR/CRP and WBC, no infectious concern on further imaging with improved lactate WBC, so ABx were stopped. Dermatology and wound care consulted. IR consulted, planning for venoplasty given INR reversal. 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 Features of pyoderma gangrenosum, calciphylaxis not identified. Patient presented with acute worsening of pain and bleeding from wound, pain now is well-controlled. On multimodal pain regimen. Denies purulent discharge from wounds. - Leukocytosis + Elevated CRP 22.1 and ESR 133 + Elevated lactate on presentation; concerned for infected wounds/soft tissue infection. Started on IV vanc/zosyn, later d/janie due to low infectious concern (04/21-04/25). WBC 4.5 (05/23). - On admission, acute rise in lactate in light of acute significant bleeding and drop in HGB (8.6 from 9.5 in ED) likely secondary to hypovolemia, also missed dialysis - CT venogram on 10/19/24 with b/l brachiocephalic stenosis w b/l subclavian vein occlusion, extensive venous collaterals - 10/22/24: Venoplasty completed by IR, removed L femoral TDC, exchanged R TDC - blood cultures 04/20/25 with NGTD 5 days - AMET for hypotension 80/50, s/p 500 cc LR bolus, scheduled midodrine with improved repeat 102/63 - lactate 2.4 from 1.7, improved from 3.2 at admission. Completed 5d course of IV vanc/zosyn (04/21-04/25) - CT chest and CT A/P 04/22/25 with no drainable fluid collections, extensive chest collaterals - nutritional workup: B12 elevated, folate wnl, iron low 26, TIBC low 137, trans sat wnl, low vit D 22.9, zinc 69 wnl, low vit A 0.10 - 04/29/25: Venoplasty: completed by IR. 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 Right upper chest tunneled dialysis catheter was exchanged over a wire for a new on; ready for use PLAN: - IR consulted: > venoplasty 04/29/2025 - no complications - Derm consulted: > ongoing nutritional workup > discontinued clobetasol 0.05% ointment BID per derm, lesion over R scapula, try to simulate tx of PG and assess response > [facility] Derm f/u outpatient - Continue Vitamin D supplement 5000 unit(s), ascorbic acid 500mg/day, vit B6 50mg/day, vit A 10,000 units/day - wound care team consulted, appreciate care - pain control: tylenol 650 mg q6h prn and oxycodone 15 mg po q4h PRN. > IV fent for dressing changes as needed - plastic surgery consulted: > No indication for surgical intervention at this time > Will reassess patient's wounds with pain optimization - Cautious fluid resuscitation in light of acute bleeding and ESRD anuric on HD - Chest wound dressings to be changed every day - Bilateral Upper Extremity doppler 05/12: No evidence of patent arteriovenous fistulas bilaterally #CAD s/p CABG #Severe MS s/p mechanical MVR on coumadin (Goal 2.5-3.5) #Paroxysmal Afib s/p multiple DCCV s/p Maze procedure + RADHA clip (07/2021) - atrial fibrillation and severe mitral stenosis s/p mechanical mitral valve replacement with On-x valve (INR goal 2.5-3.5), Maze procedure and RADHA clip on 08/21/2021. - Goal INR 2.5- 3.5; on warfarin 2.5 mg daily although patient not sure of dose, has been changed recently; last dose of warfarin Thursday 04/19 - possible etiology of supratherapeutic INR: warfarin dose (given patient not sure of home dose) vs malnutrition vs liver disease (less likely given AST/ALT wnl) - INR elevated to 5.1 on admission, improved to 3.9 s/p 2u FFP 04/21 - INR elevated again to 5.3, patient received po vitamin K 5 mg 04/25. Improved to 1.7 - INR 3.3 on 05/08 - INR of 5.2 on 05/10/25. Warfarin held. - INR 1.6 (05/23) PLAN: - given subtherapeutic INR and no intervention by plastic surgery planned, continue bridging to warfarin > goal INR 2.5 - 3.5, given mechanical valve. - Heparin discontinued 05/07 - Daily INR - Follows with Dr. Moreno (cardiology in [place]) for mgmt of Coumadin, will need follow-up outpatient - 1mg Vitamin K IV given to reverse Warfarin, in view of undergoing YONATHAN, with YONATHAN lab protocol of INR<4. - Spoke to patient for considering Heparin GTT inpatient, however, patient refuses - INR 2.6 on 05/16/2025, repeat 3 mg warfarin PO - INR 3.5 on 05/17/25, half dose warfarin PO: 2mg on 05/17/25 - INR 2.9 on 05/18/25, will give 2mg on 05/18/25 - INR pending on 05/19/25 - INR 2.2 on 05/19/25: 3mg Warfarin PO on 05/20/25 - INR 1.7 on 05/21: 3mg Warfarin PO on 05/21/25 - INR 1.6 on 05/22 will increase warfarin from 3 to 4 mg - INR 1.6 on 05/23 will increase warfarin from 4 to 5 mg - If patient continues to be subtherapeutic with INR below 1.9 by 05/24, we will consider starting IV heparin # Second-degree AV Block, Mobitz Type I - Patient having multiple episodes of bradycardia in the hospital with low blood pressures - Magnesium level 2.2 (05/05/25) - EKG (05/05/25) shows Second degree AV block, mobitz type 1 - EKG (05/06/25): shows sinus rhythm with 2nd degree AV shantell, mobitz type 1 - Transthoracic echocardiogram 05/06/25: EF: 60%, left ventricular hypertrophy, right ventricle normal, trace tricuspid valve regurgitation, trace pulmonic valve regurgitation, no pericardial effusion, aorta normal in size PLAN: - Cardiology team consulted, appreciate recs - Echocardiogram completed, results as above - EP consulted: - YONATHAN 05/23, no vegetations, 1+ MR and 2+ TR. No acute infection or structural deficits - Plan to insert leadless pacemaker per EP team, scheduled for 05/23. Left femoral vein patency ultrasound report: Patent vein - Patient has daily EKGs and Telemetry to monitor as of 05/16/25 #Constipation - Last recorded bowel movement was on 05/14/25 PLAN: - Increase Miralax to BID Polyethylene glycol - Senna BID #ESRD on HD via Right TDC #Chronic Hypotension #Secondary 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 - iHD at [facility] [place] through R. Tunneled HD catheter MWF - Last dialysis session Friday04/18/2025; missed Fri session because he presented to [facility] ED - anuric at baseline per patient - Serum P=9.7 - completed HD 04/21, now on MWF - PTH elevated 578, Ca 8.3 low PLAN: - nephrology consulted: > continue MWF HD schedule > continue calcitriol MWF - Continue Sensipar, renvela with meals - continue home Midodrine 20mg every 8 hours, may augment with fluids for hypotension - Dialysis today on 05/17/25 due to missed dose on 05/16/25 #Anemia of Chronic Disease/ESRD - Baseline hemoglobin 9-11 - iron studies 12/2024: iron 33, TIBC 156, Iron sat 21, ferritin 1327 - Hgb dropping iso bleeding wounds, as above. - received 1u pRBC 04/21, Hgb from 7.3 -> 7.7 post-transfusion - Hgb 6.9 on 04/22, s/p additional 2u pRBC with Hgb in ~8s - Hgb 7.9 (05/23) PLAN: - Hgb goal >8, 8.4 (05/08/25). - chronic wound mgmt, as above - Iron levels of 36, TIBC- WNL, Ferritin high at 996 on 05/08/25, Replete Iron levels for ANABELLA, per Nephrology recommendation, however due to concerns for ongoing possible endocarditis, we will refrain from IV Iron use until further workup. #Adjustment disorder? #Low mood - Psychology consulted 05/10/25 - Music therapy - Art therapy - Healing services - Aroma therapy, spiritual services, and brief inpatient psychotherapy ordered per Psychology's recommendation, 05/11/25. #Code status - Full # Diet - renal # VTE PPx - warfarin # Dispo Planning - Pending clinical course, SW consulted for recent unemployment, c/f food insecurity Medication and Non-Pharmacologic VTE Prophylaxis/Anticoagulants Anticoagulant AND Antiplatelet Medications (From admission, onward) Start Dose Route Frequency Last Action Ordered Stop 05/23/25 1700 warfarin 5 mg tab(s) (COUMADIN) 5 mg PO ONCE - WARFARIN Ordered 05/23/25 0810 05/24/25 0459 04/21/25 0900 aspirin 81 mg chewable tab(s) 81 mg PO DAILY Given, 05/22 1039 04/21/25 0316 -- 04/10/25 1015 activity - mobilize patient ([place]) 04/04/25 0900 graduated compression stockings ([place]) VTE Prophylaxis: VTE prophylaxis appropriate Disposition: To be determined Plan of care discussed with Provider, RN, Patient Plan communicated to: Family Signature: Pascale Swartz MD Internal Medicine PGY-1 05/23/2025 2:03 PM Patient seen and discussed with Beulah Norton. Addendum to follow. [facility] ([facility] STAFF PHYSICIAN NOTE OF PERSONAL INVOLVEMENT IN CARE I have reviewed the note documented by the resident and I personally participated in the mendoza components. I have discussed the case and management of the patient's care. The following comments revise or confirm relevant mendoza components of the note. Pt. seen and examined by me. I have reviewed the note and agree with findings and plans of care as written. I have made necessary addendum in the Note above Beulah Ramey MD, MEd, FACP Staff, Dept. Of Hospital Medicine PAGER - [phone] ALLIED HEALTH Observed: 05/22/2025 8:00 PM Status: COMPLETED Source: [facility] HNO ID: [id number] Author: MOHAMUD MARLOW Chaplain Service: Spiritual Care Author Type: Radio News Anchor Type: Allied Health Filed: 05/22/2025 21:31 Note Text: SPIRITUAL CARE ASSESSMENT SERVICE DATE: 05/22/2025 SERVICE TIME: 8p Visit with: Patient Length of visit (minutes): 20 Pentecostalism / Spirituality: Adventist Reason: Referral from: Patient (self-referral) Purpose of Referral (if stated): pt asked to see a private watchman ASSESSMENT Emotional Disposition: Determined, Grateful, Hopeful, and Lonely Relational Concerns: None Spiritual Concerns: Inability to carry out beliefs or practices, Struggling with life purpose, and vocational discernment INTERVENTIONS Empowerment: Informed patient of spiritual care resources available Exploration: Explored emotional needs and resources, Explored relational needs and resources, Explored spiritual needs and resources, Facilitated life review, and Facilitated story telling Relationship Building: Explored interpersonal dynamics and Provided hospitality Ritual: Provided prayer OUTCOMES Patient identified priorities, Patient identifies inner sources of strength and resilience, and Spiritual resources utilized PLAN Unit private watchman available for f/u as requested/needed SIGNATURE: Chaplain Ayaz PATIENT NAME: Elia Weston DATE: May 22, 2025 TIME: 9:25 PM PAGER/CONTACT #: [phone] CONSULT PROG Observed: 05/22/2025 2:06 PM Status: COMPLETED Source: [facility] HN ID: [id number] Author: KENTRELL BHARDWAJ MD Service: Electrophysiology Author Type: Fellow Type: Consult Progress Note Filed: 05/22/2025 14:07 Note Text: [facility] ELECTROPHYSIOLOGY CONSULT PROGRESS NOTE Elia Weston [id number] PRIMARY SERVICE: Internal Medicine CONSULTING SERVICE: Electrophysiology DATE OF ADMISSION: 04/20/2025 REASON FOR CONSULT: AV block IMPRESSION AND RECOMMENDATIONS: 45M with ESRD on HD, 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 The EP service are now consulted for rhythm management. - 13 Apr: Awaiting YONATHAN. - 14 Apr: Awaiting YONATHAN. ECG with DE continuing to prolong (~450 ms). - 15 Apr: Unable to undergo YONATHAN with conscious sedation (required a lot of sedation to be comfortable resulting in hypotension). - 16 Apr: ECG demonstrates DE ~430 ms - 18 Apr: Discussed EP plan in detail (YONATHAN to assess for IE, if no IE leadless PPM; if IE, multidisciplinary treatment including possible OHS). - 20 Apr: YONATHAN formal read without evidence of endocarditis - 21 Apr: Atropine 0.5mg administered bedside: pre-atropine DE 420ms at HR 93, post-atropine DE 420ms at HR 113 - Apr: discussed procedure with patient in detail Recommendations: Notable DE prolongation this admission (~420 ms) as compared to prior (~220 ms in Sep 2024). Initially suspicious for aortic root infection however YONATHAN reassuring. Of note, DE interval did not accommodate with atropineBCX x2 from admission (20 April) negative. In the absence of clear IE, will plan to proceed with leadless PPM implant - Patient is SCHEDULED for a Micra Leadless PPM Implant via LEFT FEMORAL access on Friday - Please make NPO at midnight Friday - Please draw an active type and screen on Friday - INR currently <2 - The EP Consult service shall continue to follow with you Electrophysiology Pre-Procedure Checklist: Procedure: Leadless PPM Important Considerations: L femoral access only (SVC occluded, R femoral not accessible) Indication: Post-op conduction disease Consent: Signed and uploaded to chart Allergies: No allergies relevant to the procedure Vitals: Stable, able to lie flat Signs of infection: None IV Access: Adequate Labs: Cr, coagulation panel, and PLT within acceptable ranges Type and screen: To be updated with AM labs Anticoagulation: Warfarin for AF, monitor INR daily Status: Ready Kentrell Bhardwaj MD Cardiac Electrophysiology Fellow PGY-7 Heart,Vascular, and Thoracic [place] [facility] PROGRESS Observed: 05/22/2025 11:16 AM Status: COMPLETED Source: [facility] HN ID: [id number] Author: BEULAH RAMEY MD Service: General Internal Medicine Author Type: Physician Type: Progress Notes Filed: 05/22/2025 11:25 Note Text: DEPARTMENT OF HOSPITAL MEDICINE PROGRESS NOTE SERVICE DATE: 05/22/2025 SERVICE TIME: 11:17 AM Hospital Medicine/Primary Attending: Beluah Ramey MD NIGHT AND WEEKEND COVERAGE: [facility] COVERAGE: Nights: [phone], please page Team Jeffrey Haq; overnight/admitting pager [phone] Subjective Chief Complaint: Pain and chronic chest wound bleeding INTERVAL HPI: Mr. 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 Patient was hospitalized in September 2024 to October 2024 for pain and bleeding from the wounds. Patient was seen by dermatology back then for his skin ulcers. Biopsy performed and was most c/w reactive ischemic changes without features of Pyoderma Gangrenosum or Calciphylaxis. Now, plan for venoplasty with IR pending improvement in INR. Dermatology consulted and underwent steroid trial at wound edge. He was bridged to warfarin while here given his history of mechanical valve. Stay further complicated by new bradycardia, found to have Mobitz 1 second-degree AV block for which cardiology/EP was consulted. Overnight Events: No acute events overnight. Hemodynamically stable on room air. Patient offers no complaints. Denies bleeding from the chest wounds. Labs this morning still pending Current Facility-Administered Medications Medication Dose Route Frequency NaCl 0.9% iv flush bag 20 mL INTRAVENOUS PRN acetaminophen 650 mg tab(s) (TYLENOL) 650 mg ORAL q 6 H PRN aspirin 81 mg chewable tab(s) 81 mg ORAL DAILY midodrine 20 mg tab(s) (PROAMATINE) 20 mg ORAL q 8 H cinacalcet 60 mg tab(s) (SENSIPAR) 60 mg ORAL DAILY sevelamer carbonate 800 mg tab(s) (RENVELA) 800 mg ORAL TID w MEALS polyethylene glycol 3350 17 g packet 17 g ORAL DAILY calcitriol 1.5 mcg cap(s) (ROCALTROL) 1.5 mcg ORAL - fentaNYL 50 mcg/mL 25 mcg injection (SUBLIMAZE) 25 mcg INTRAVENOUS DAILY PRN warfarin order for discharge OTHER PRN ascorbic acid 500 mg chewable tab(s) 500 mg ORAL DAILY pyridoxine (vitamin B6) 50 mg tab(s) (VITAMIN B6) 50 mg ORAL DAILY vitamin A 10,000 Units cap(s) (AQUASOL A) 10,000 Units ORAL DAILY senna 8.6 mg tab(s) (SENOKOT) 8.6 mg ORAL/FEEDING TUBE BID fentaNYL 50 mcg/mL 50 mcg injection (SUBLIMAZE) 50 mcg INTRAVENOUS DAILY PRN melatonin 3 mg tab(s) 3 mg ORAL/FEEDING TUBE AT BEDTIME PRN Darbepoetin [place] In Polysorbat 60 mcg injection (ARANESP) 60 mcg SUBCUTANEOUS q Wed oxyCODONE IR 15 mg tab(s) (ROXICODONE) 15 mg ORAL q 4 H PRN busPIRone 5 mg tab(s) (BUSPAR) 5 mg ORAL DAILY diazePAM 2.5 mg injection (VALIUM) 2.5 mg INTRAVENOUS BID PRN Objective PHYSICAL EXAM: BP 100/60 Pulse 77 Temp (Src) 98.1 (Axillary) Resp 17 Ht 5' 9.685 (1.77m) Wt 261 lb 11 oz (118.7kg) SpO2 100% BMI 37.89 kg/(m2). O2 Therapy: Continuous Positive Airway Pressure Physical Exam Performed GENERAL: Alert, no distress, cooperative SKIN: Right and Left anterior and posterior chest wounds: chronic, bleeding, no purulent discharge. LUNGS: Lungs clear to auscultation, Good diaphragmatic excursion CARDIAC: Normal S1 and S2; no rubs, murmurs, or gallops ABDOMEN: Abdomen soft, non-tender, BS normal, No masses or organomegaly Lines, Drains, and Airways Line Duration Peripheral 04/26/25 [facility] Right Forearm 20 Gauge 25 days Dialysis / Apheresis Double Lumen 04/29/25 1005 [facility] Tunneled Right Internal Jugular 23 days DATA: Diagnostic tests reviewed for today's visit: Most recent labs Most recent imaging Most recent EKG Labs: Latest Reference Range AND Units 05/16/25 01:55 05/17/25 07:15 05/18/25 01:30 05/18/25 04:06 Sodium 136 - 144 mmol/L 138 138 137 Potassium 3.7 - 5.1 mmol/L 5.2 (H) 5.7 (H) 4.7 Chloride 98 - 107 mmol/L 98 99 98 CO2 22 - 30 mmol/L 24 22 25 BUN 9 - 24 mg/dL 24 34 (H) 13 Creatinine 0.73 - 1.22 mg/dL 7.82 (H) 9.50 (H) 5.63 (H) Glucose 74 - 99 mg/dL 87 77 105 (H) Protein, Total 6.3 - 8.0 g/dL 7.7 7.2 7.1 Calcium 8.5 - 10.2 mg/dL 7.9 (L) 7.2 (L) 7.9 (L) Magnesium 1.7 - 2.3 mg/dL 2.5 (H) Albumin 3.9 - 4.9 g/dL 3.7 (L) 3.6 (L) 3.4 (L) Bilirubin, Total 0.2 - 1.3 mg/dL 0.3 0.3 0.3 Alkaline Phosphatase 38 - 113 U/L 156 (H) 146 (H) 148 (H) ALT 10 - 54 U/L 13 9 (L) 11 AST 14 - 40 U/L 17 17 21 Anion Gap 8 - 15 mmol/L 16 (H) 17 (H) 14 eGFR >=60 mL/min/1.73m? 8 (L) 6 (L) 12 (L) WBC 3.70 - 11.00 k/uL 7.00 5.76 6.27 RBC 4.20 - 6.00 m/uL 2.55 (L) 2.61 (L) 2.64 (L) Hemoglobin 13.0 - 17.0 g/dL 7.2 (L) 7.4 (L) 7.6 (L) Hematocrit 39.0 - 51.0 % 24.9 (L) 24.0 (L) 24.6 (L) Platelet Count 150 - 400 k/uL 198 185 201 MCV 80.0 - 100.0 fL 97.6 92.0 93.2 MCH 26.0 - 34.0 pg 28.2 28.4 28.8 MCHC 30.5 - 36.0 g/dL 28.9 (L) 30.8 30.9 MPV 9.0 - 12.7 fL 11.6 11.2 11.0 RDW-CV 11.5 - 15.0 % 19.7 (H) 20.5 (H) 20.1 (H) Absolute nRBC <0.01 k/uL <0.01 <0.01 <0.01 PT Sec 9.7 - 13.0 sec 26.8 (H) 34.7 (H) 29.1 (H) PT INR 0.9 - 1.3 2.6 (H) 3.5 (H) 2.9 (H) (H): Data is abnormally high (L): Data is abnormally low Latest Reference Range AND Units 05/19/25 17:19 05/19/25 18:27 PT INR 0.9 - 1.3 2.2 (H) 2.2 (H) (H): Data is abnormally high Transthoracic echocardiogram 05/06/25: EF: 60%, left ventricular hypertrophy, right ventricle normal, trace tricuspid valve regurgitation, trace pulmonic valve regurgitation, no pericardial effusion, aorta normal in size CXR 04/21/25: TDC with tip in RA. Increase of perihilar and basilar opacities with volume loss, suggesting atelectasis, possible underlying edema/inflammation. Blunting of L CP angle, which may represent tiny effusion or pleural thickening. CT A/P 04/22/25: No abdominal or pelvic subcutaneous fluid collection of gas. Redemonstrated diffuse subcutaneous extensive abdominal wall collaterals, similar to prior CTA 10/17/2024. CT chest 04/22/25: extensive chest wall collaterals, few areas of skin ulceration, no areas of drainable fluid collection. Findings consistent with central venous stenoses. Few patchy groundglass opacities, may be related to mild pulm edema YONATHAN 05/18/25: Impression CONCLUSIONS: - Exam indication: ?Endocarditis - The left ventricle is normal in size. There is mild left ventricular hypertrophy. Left ventricular systolic function is normal. EF = 60 ? 5% (visual est.) - The right ventricle is normal in size. Right ventricular systolic function is normal. - The left atrial cavity is dilated. - The right atrial cavity is dilated. - Post mitral valve replacement. On-X prosthetic mitral valve (size #25). - No echocardiographic evidence of endocarditis There is trace (trace - 1+) mitral valve regurgitation. - There is moderate (2+) tricuspid valve regurgitation. - The patient has not had a prior CC echocardiographic exam for comparison. Assessment/Plan Problem List Assessment AND Plan Bleeding from open wound of chest wall, right, initial encounter Secondary hyperparathyroidism, renal (HCC) ESRD on hemodialysis ([facility]) History of non-ST elevation myocardial infarction (NSTEMI) Vitamin D deficiency S/P MVR (mitral valve replacement) Supratherapeutic INR Atrial fibrillation (HCC) Acute on chronic blood loss anemia Adjustment disorder with depressed mood Acquired hypothyroidism Acquired stenosis of superior vena cava Venous collateral circulation Status post Maze operation for atrial fibrillation Ulcers, venous (HCC) Wounds, multiple Anemia due to multiple mechanisms Hemorrhage from open wound of left chest wall Open chest wound, right, sequela Open chest wound, left, sequela Back wound, unspecified laterality, sequela Open wound of abdomen Open wound of right thigh Bleeding from wound Difficult intravenous access Hypervolemia Skin ulcers (HCC) Vitamin C deficiency Vitamin A deficiency Vitamin B6 deficiency Second degree AV block, Mobitz type I Impaired skin integrity HOSPITAL COURSE: Elia Weston is a 45 year old male with extensive PMH, significant for ESRD on HD (MWF) last session 04/18 (skipped Friday since he came to ED), CAD s/p CABG, severe MS s/p MVR on Warfarin (goal INR of 2.5-3.5), pAfib s/p maze procedure and RADHA clip and chronic chest/abdominal/back wounds (3 years) likely secondary to ischemia in context of SVC syndrome and multiple thrombosis, who presented to the ED with 1-day of left chronic chest wound bleeding. Admitted for management of bleeding, and on transfer to [facility], patient began to have significant bleeding from R chest wound. Continuous pressure was applied and bleeding stopped. Now s/p FFP and RBC transfusions as appropriate. Initially started on Vanc/Zosyn given elevated ESR/CRP and WBC, no infectious concern on further imaging with improved lactate WBC, so ABx were stopped. Dermatology and wound care consulted. IR consulted, planning for venoplasty given INR reversal. 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 Hx of hemorrhagic shock from bleeding abdominal wounds - presenting with acute worsening of pain and bleeding from wounds. Denies purulent discharge from wounds. - Leukocytosis + Elevated CRP 22.1 and ESR 133 + Elevated lactate on presentation; concerned for infected wounds/soft tissue infection. Started on IV vanc/zosyn, later d/janie due to low infectious concern (04/21-04/25) - On admission, acute rise in lactate in light of acute significant bleeding and drop in HGB (8.6 from 9.5 in ED) likely secondary to hypovolemia, also missed dialysis - CT venogram on 10/19/24 with b/l brachiocephalic stenosis w b/l subclavian vein occlusion, extensive venous collaterals - 10/22/24: Venoplasty completed by IR, removed L femoral TDC, exchanged R TDC - blood cultures 04/20/25 with NG5D x2 - AMET for hypotension 80/50, s/p 500 cc LR bolus, scheduled midodrine with improved repeat 102/63 - lactate 2.4 from 1.7, improved from 3.2 at admission. Completed 5d course of IV vanc/zosyn (04/21-04/25) - CT chest and CT A/P 04/22/25 with no drainable fluid collections, extensive chest collaterals - nutritional workup: B12 elevated, folate wnl, iron low 26, TIBC low 137, trans sat wnl, low vit D 22.9, zinc 69 wnl, low vit A 0.10 - 04/29/25: Venoplasty: completed by IR. 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 Right upper chest tunneled dialysis catheter was exchanged over a wire for a new on; ready for use PLAN: - IR consulted: > venoplasty 04/29/2025 - no complications - Derm consulted: > ongoing nutritional workup > discontinued clobetasol 0.05% ointment BID per derm, lesion over R scapula, try to simulate tx of PG and assess response > [facility] D[facility] f/u outpatient - continue vitamin D supplement 5000 unit(s), ascorbic acid 500mg/day, vit B6 50mg/day, vit A 10,000 units/day - wound care team consulted, appreciate care - pain control: tylenol 650 mg q6h prn and oxycodone 10 mg po q6h PRN. > IV fent for dressing changes as needed - plastic surgery consulted: > no indication for surgical intervention at this time - Cautious fluid resuscitation in light of acute bleeding and ESRD anuric on HD - Chest wound dressings to be changed every day - Bilateral Upper Extremity doppler 05/12: No evidence of patent arteriovenous fistulas bilaterally - Patient has uncontrolled pain from his chest wounds/bleeding - Updated Oxycodone to 15mg PO q4 PRN - Patient states he does not want Tylenol as it hasn't worked for him in the past - Patient has better pain control today than yesterday after the updated pain management regimen - Plastic surgery consulted due to ongoing wound bleeding overnight - Plastic surgery will reassess patient's wounds with pain optimization - Plastic surgery suggests pain optimization during dressing changes, and more frequent dressing changes, final note pending (05/19/25) #CAD s/p CABG #Severe MS s/p mechanical MVR on coumadin (Goal 2.5-3.5) #Paroxysmal Afib s/p multiple DCCV s/p Maze procedure + RADHA clip (07/2021) - atrial fibrillation and severe mitral stenosis s/p mechanical mitral valve replacement with On-x valve (INR goal 2.5-3.5), Maze procedure and RADHA clip on 08/21/2021. - Goal INR 2.5- 3.5; on warfarin 2.5 mg daily although patient not sure of dose, has been changed recently; last dose of warfarin Thursday 04/19 - INR elevated to 5.1 on admission, improved to 3.9 s/p 2u FFP 04/21 - possible etiology of supratherapeutic INR: warfarin dose (given patient not sure of home dose) vs malnutrition vs liver disease (less likely given AST/ALT wnl) - INR elevated again to 5.3, patient received po vitamin K 5 mg 04/25. Improved to 1.7 - INR 3.3 on 05/08 - INR of 5.2 on 05/10/25. Warfarin held. PLAN: - given subtherapeutic INR and no intervention by plastic surgery planned, continue bridging to warfarin > goal INR 2.5 - 3.5, given mechanical valve. - Heparin discontinued 05/07 - Daily INR - Follows with Dr. Moreno (cardiology in [place]) for mgmt of Coumadin, will need follow-up outpatient - 1mg Vitamin K IV given to reverse Warfarin, in view of undergoing YONATHAN, with YONATHAN lab protocol of INR<4. - INR 05/11/25: 2.0, 3 mg Warfarin given. - INR 2.1 05/12/2025 warfarin increased to 3.5 - INR: 2.3 05/13/25, warfarin 3 mg ordered - Spoke to patient for considering Heparin GTT inpatient, however, patient refuses - INR 2.6 on 05/15/25: Last dose of warfarin given: 3mg on 05/13/25. 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) - INR from 05/15/2025: 2.6 - 3mg Warfarin ordered PO 05/15/25 - INR 2.6 on 05/16/2025, repeat 3 mg warfarin PO - INR 3.5 on 05/17/25, half dose warfarin PO: 2mg on 05/17/25 - INR 2.9 on 05/18/25, will give 2mg on 05/18/25 - INR pending on 05/19/25 - INR 2.2 on 05/19/25: 3mg Warfarin PO on 05/20/25 - INR 1.7 on 05/21: 3mg Warfarin PO on 05/21/25 -Today will INR 1.6 will increase warfarin from 3 to 4 mg # Second-degree AV Block, Mobitz Type I - Patient having multiple episodes of bradycardia in the hospital with low blood pressures - Magnesium level 2.2 (05/05/25) - EKG (05/05/25) shows Second degree AV block, mobitz type 1 - EKG (05/06/25): shows sinus rhythm with 2nd degree AV shantell, mobitz type 1 - Transthoracic echocardiogram 05/06/25: EF: 60%, left ventricular hypertrophy, right ventricle normal, trace tricuspid valve regurgitation, trace pulmonic valve regurgitation, no pericardial effusion, aorta normal in size PLAN: - Cardiology team consulted, appreciate recs - Echocardiogram completed, results as above - Cardiology suggest EP consult given risk of progression of 2nd degree AVB, type 1 to higher degree AVB - EP consult patient to go for leadless pacemaker on 05/23 - EP Consult on 05/09/25 Recommendations: -Suggest YONATHAN to assess for possible endocarditis or other pathology - No current pacemaker indications, however, further investigation warranted due to rapid progression since Sep 2024. - Patient was scheduled for YONATHAN on 05/13/25, however, due to hypotension during sedation attempt it was terminated. Plan to schedule YONATHAN with General Anesthesia, per Cardiology, earliest date is Friday05/17/25. - Patient has daily EKGs and Telemetry to monitor as of 05/16/25 - YONATHAN 05/19/25: No vegetations see, 1+ MR and 2+ TR seen - No acute infection or structural deficits on YONATHAN, plan is to insert leadless pacemaker per EP team (05/19/25), patient agrees, scheduled for Friday. Left femoral vein patency ultrasound report: Patent vein - NPO 05/23 midnight, for pacemaker on 05/23/25 morning #Constipation - Last recorded bowel movement was on 05/14/25 PLAN: - Polyethylene glycol daily - Start Senna BID #ESRD on HD via Right TDC #Chronic Hypotension #Secondary 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 - iHD at [facility] through R. Tunneled HD catheter MWF - Last dialysis session Friday04/18/2025; missed Fri session because he presented to [facility] ED - anuric at baseline per patient - Serum P=9.7 - completed HD 04/21, now on MWF - PTH elevated 578, Ca 8.3 low PLAN: - nephrology consulted: > continue MWF HD schedule > continue calcitriol MWF - Continue Sensipar, renvela with meals - continue home Midodrine 20mg every 8 hours, may augment with fluids for hypotension - Dialysis today on 05/17/25 due to missed dose on 05/16/25 #Anemia of Chronic Disease/ESRD - Baseline hemoglobin 9-11 - iron studies 12/2024: iron 33, TIBC 156, Iron sat 21, ferritin 1327 - Hgb dropping iso bleeding wounds, as above. - received 1u pRBC 04/21, Hgb from 7.3 -> 7.7 post-transfusion - Hgb 6.9 on 04/22, s/p additional 2u pRBC with Hgb in ~8s PLAN: - Hgb goal >8, 8.4 (05/08/25). - chronic wound mgmt, as above - Iron levels of 36, TIBC- WNL, Ferritin high at 996 on 05/08/25, Replete Iron levels for ANABELLA, per Nephrology recommendation, however due to concerns for ongoing possible endocarditis, we will refrain from IV Iron use until further workup. #Code status - Full # Diet - renal # VTE PPx - warfarin # Dispo Planning - Pending clinical course, SW consulted for recent unemployment, c/f food insecurity #Adjustment disorder? #Low mood - Psychology consulted 05/10/25 - Music therapy - Art therapy - Healing services - Aroma therapy, spiritual services, and brief inpatient psychotherapy ordered per Psychology's recommendation, 05/11/25. Medication and Non-Pharmacologic VTE Prophylaxis/Anticoagulants Anticoagulant AND Antiplatelet Medications (From admission, onward) Start Dose Route Frequency Last Action Ordered Stop 04/21/25 0900 aspirin 81 mg chewable tab(s) 81 mg PO DAILY Given, 05/22 1039 04/21/25 0316 -- 04/10/25 1015 activity - mobilize patient ([place]) 04/04/25 0900 graduated compression stockings ([place]) VTE Prophylaxis: VTE prophylaxis appropriate Disposition: To be determined Plan of care discussed with Provider, RN, Patient Plan communicated to: Family Vicki Stein MA, MD PGY-3 Internal Medicine May 22, 2025 Pager #:[phone] [facility] STAFF PHYSICIAN NOTE OF PERSONAL INVOLVEMENT IN CARE I have reviewed the note documented by the resident and I personally participated in the mendoza components. I have discussed the case and management of the patient's care. The following comments revise or confirm relevant mendoza components of the note. Labs reviewed INR 1.6, Continue Coumadin NPO after Midnight Pacemaker placement tomorrow This note may contain elements from previous notes and elements copied from other sources in patient's Epic record for cohesive documentation. All elements have been reviewed by me today to ensure accuracy and have been updated to reflect relevant clinical elements as well as updated assessment and plan. This note may also be in part produced with the aid of voice-recognition technology. While every attempt is made to correct any typographical errors during dictation, errors may still exist. Beulah Ramey MD, MEd, FACP Staff, Dept. Of Hospital Medicine PAGER - [phone] COMP METAB 2000 PNL SERPL Collected: 9:05 AM Status: F Source: [facility] Order Comment: Specimen Type : BLOOD SPECIMEN Ordering Facility: [facility] Address: [address] [place] [id number] TYPE CODE TESTS RESULT OUT OF RANGE REFERENCE UNITS LAB 2885-2(LOINC) Prot SerPl-mCnc 6.9 6.3-8.0 g/dL LAB 1751-7(LOINC) Albumin SerPl-mCnc 3.4 Low 3.9-4.9 g/dL LAB 37503-5(LOINC) Calcium SerPl-mCnc 7.8 Low 8.5-10.2 mg/dL LAB 1975-2(LOINC) Bilirub SerPl-mCnc 0.3 0.2-1.3 mg/dL LAB 6768-6(LOINC) ALP SerPl-cCnc 144 High 38-113 U/L LAB 1920-8(LOINC) AST SerPl-cCnc 20 14-40 U/L LAB 1742-6(LOINC) ALT SerPl-cCnc 10 10-54 U/L LAB 2345-7(INC) Glucose SerPl-mCnc 76 74-99 mg/dL Result Comment: The [place] Diabetes Association (ADA) provides guidance for cutoff values for fasting glucose and random glucose. The ADA defines fasting as no caloric intake for at least 8 hours. Fasting plasma glucose results between 100 to 125 mg/dL indicate increased risk for diabetes (prediabetes). Fasting plasma glucose results greater than or equal to 126 mg/dL meet the criteria for diagnosis of diabetes. In the absence of unequivocal hyperglycemia, results should be confirmed by repeat testing. In a patient with classic symptoms of hyperglycemia or hyperglycemic crisis, random plasma glucose results greater than or equal to 200 mg/dL meet the criteria for diagnosis of diabetes. Reference: Standards of Medical Care in Diabetes 2016, [place] Diabetes Association. Diabetes Care. 2016.39(Suppl 1). LAB 3094-0(LOINC) BUN SerPl-mCnc 17 9-24 mg/dL LAB 2160-0(LOINC) Creat SerPl-mCnc 6.72 High 0.73-1.22 mg/dL LAB 2951-2(INC) Sodium SerPl-sCnc 137 136-144 mmol/L LAB 2823-3(LOINC) Potassium SerPl-sCnc 5.2 High 3.7-5.1 mmol/L LAB 2075-0(LOINC) Chloride SerPl-sCnc 99 98-107 mmol/L LAB 2027-9(LOINC) CO2 SerPl-sCnc 23 22-30 mmol/L LAB 98961-1(LOINC) Anion Gap SerPl-sCnc 15 8-15 mmol/L LAB 95107-9(LOINC) eGFRcr SerPlBld CKD-EPI 2020 10 Low >=60 mL/min/1. 73m??? Result Comment: Estimated Gl omerular Filtration Rate (eGFR) is calculated using the 2020 CKD-EPI creatinine equation. This equation utilizes serum creatinine, sex, and age as parameters. The creatinine assay has traceable calibration to isotope dilution-mass spectrometry. Refer to KDIGO guidelines for clinical interpretation. In patients with unstable renal function, e.g. those with acute kidney injury, the eGFR may not accurately reflect actual GFR. Performed By: #### [id number] # ### [facility] CLIA [id number] [address] [place] [address] [place] CBC PNL BLD AUTO Collected: 5 9:05 AM Status: F Source: [facility] Order Comment: Specimen Type : BLOOD SPECIMEN Ordering Facility: [facility] Address: [address] [place] [address] TYPE CODE TESTS RESULT OUT OF RANGE REFERENCE UNITS LAB 6690-2(LOINC) WBC # Bld Auto 4.55 3.70-11.00 k/uL LAB 789-8(LOINC) RBC # Bld Auto 2.67 Low 4.20-6.00 m/uL LAB 718-7(LOINC) Hgb Bld-mCnc 7.8 Low 13.0-17.0 g/dL LAB 4544-3(LOINC) Hct VFr Bld Auto 25.9 Low 39.0-51.0 % LAB 787-2(LOINC) MCV RBC Auto 97.0 80.0-100.0 fL LAB 785-6(LOINC) MCH RBC Qn Auto 29.2 26.0-34.0 pg LAB 786-4(LOINC) MCHC RBC Auto-mCnc 30.1 Low 30.5-36.0 g/dL LAB 82545-3(LOINC) RDW RBC-Rto 18.8 High 11.5-15.0 % LAB 777-3(LOINC) Platelet # Bld Auto 189 150-400 k/uL LAB 09130-3(LOINC) PMV Bld Auto 10.4 9.0-12.7 fL LAB 771-6(LOINC) nRBC # Bld Auto <0.01 <0.01 k/uL Performed By: #### 84198-5 # ### [facility] CLIA [id number] [address] [place], [place] [id number] [place] PT PNL PPP Collected: 05/22/2025 9:05 AM Status: F Source: [facility] Order Comment: Specimen Type : BLOOD SPECIMEN Ordering Facility: [facility] Address: [address] [place] [address] TYPE CODE TESTS RESULT OUT OF RANGE REFERENCE UNITS LAB 5902-2(LOINC) Prothrombin time 16.6 High 9.7-13.0 sec LAB 6301-6(LOINC) INR PPP 1.6 High 0.9-1.3 Result Comment: Vitamin K An tagonist (VKA) Therapeutic Range: INR 2 to 3 (Target INR of 2.5) Note: For patients treated with VKA drugs, such as warfarin, the [place] College [employer]icians 2012 Guideline recommends a therapeutic INR range of 2 to 3 (target INR of 2.5). This recommendation includes high-risk patients with antiphospholipid syndrome with previous arterial or venous thromboembolism, current-generation mechanical or bioprosthetic aortic heart valve replacement. Note: Patients with mechanical aortic valve replacement and additional risk factors for thromboembolic events (atrial fibrillation, previous thromboembolism, LV dysfunction, hypercoagulable conditions) or an older generation mechanical AVR (i.e., ball in-Cage) or any mechanical MVR should have a INR therapeutic range of 2.5 to 3.5 (target INR of 3). Ranjit GH, et al. Chest 2012, 141:7S-47S Kevin RA, et al. [facility] 2017, 70: 252-289 Performed By: #### 27026-0 # ### [facility] CLIA [id number] [address] [place], [place] [id number] [place] TYPE + SCREEN Collected: 05/22/2025 9:05 AM Status: F Source: [facility] Order Comment: Specimen Type : BLOOD SPECIMEN Ordering Facility: [facility] Address: [address] [place] [address] TYPE CODE TESTS RESULT OUT OF RANGE REFERENCE UNITS LAB [id number] ABO B LAB [id number] RH Positive LAB [id number] ANTIBODY SCREEN Negative LAB [id number] TYPE AND SCREEN EXPIRATION 05/25/2025 23:59 Performed By: #### TSCR #### CC MAIN BLOOD BANK [facility] [id number] [address] [facility] [address] STATES OF [facility] PROGRESS Observed: 05/22/2025 6:58 AM Status: COMPLETED Source: [facility] HNO ID: [id number] Author: CED GUZMAN, RN Service: Nursing Author Type: Registered Nurse Type: Progress Notes Filed: 05/22/2025 07:00 Note Text: Upon wound dressing change pt refused the removal of the hemostatic patch on his R breast wound. Education provided on the importance of maintaining the wound hygiene. pt stated I would like to remove it tomorrow . 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 The EP service are now consulted for rhythm management. - 13 Apr: Awaiting YONATHAN. - 14 Apr: Awaiting YONATHAN. ECG with DE continuing to prolong (~450 ms). - 15 Apr: Unable to undergo YONATHAN with conscious sedation (required a lot of sedation to be comfortable resulting in hypotension). - 16 Apr: ECG demonstrates DE ~430 ms - 18 Aug: Discussed EP plan in detail (YONATHAN to assess for IE, if no IE leadless PPM; if IE, multidisciplinary treatment including possible OHS). - 20 Apr: YONATHAN formal read without evidence of endocarditis - 21 Apr: Atropine 0.5mg administered bedside: pre-atropine DE 420ms at HR 93, post-atropine DE 420ms at HR 113 Recommendations: Notable DE prolongation this admission (~420 ms) as compared to prior (~220 ms in Sep 2024). Initially suspicious for aortic root infection however YONATHAN reassuring. Of note, DE interval did not accommodate with atropineBCX x2 from admission (20 April) negative. In the absence of clear IE, will plan to proceed with leadless PPM implant - Patient is SCHEDULED for a Micra Leadless PPM Implant via LEFT FEMORAL access on Friday - Please make NPO at midnight Friday - Please draw an active type and screen on Friday - Please keep INR close to 2 - Please obtain 12-lead ECG daily to reassess DE interval - The EP Consult service shall continue to follow with you Electrophysiology Pre-Procedure Checklist: Procedure: Leadless PPM Important Considerations: L femoral access only (SVC occluded, R femoral not accessible) Indication: Post-op conduction disease Consent: Signed and uploaded to chart Allergies: No allergies relevant to the procedure Vitals: Stable, able to lie flat Signs of infection: None IV Access: Adequate Labs: Cr, coagulation panel, and PLT within acceptable ranges Type and screen: To be updated with AM labs Anticoagulation: Warfarin for AF, monitor INR daily Status: Ready Kentrell Bhardwaj MD Cardiac Electrophysiology Fellow PGY-7 Heart,Vascular, and Thoracic [place] [facility] PROGRESS Observed: 05/21/2025 6:30 AM Status: COMPLETED Source: [facility] HN ID: [id number] Author: BEULAH RAMEY MD Service: General Internal Medicine Author Type: Physician Type: Progress Notes Filed: 05/21/2025 11:24 Note Text: DEPARTMENT OF HOSPITAL MEDICINE PROGRESS NOTE SERVICE DATE: 05/21/2025 SERVICE TIME: 6:30 AM Hospital Medicine/Primary Attending: Luis Cui MD NIGHT AND WEEKEND COVERAGE: [facility] COVERAGE: Nights: [phone], please page Team Jeffrey Haq; overnight/admitting pager [phone] Subjective Chief Complaint: Pain and chronic chest wound bleeding INTERVAL HPI: Mr. 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 Patient was hospitalized in September 2024 to October 2024 for pain and bleeding from the wounds. Patient was seen by dermatology back then for his skin ulcers. Biopsy performed and was most c/w reactive ischemic changes without features of Pyoderma Gangrenosum or Calciphylaxis. Now, plan for venoplasty with IR pending improvement in INR. Dermatology consulted and underwent steroid trial at wound edge. He was bridged to warfarin while here given his history of mechanical valve. Stay further complicated by new bradycardia, found to have Mobitz 1 second-degree AV block for which cardiology/EP was consulted. Overnight Events: NAEON Bedside: Patient feels better. His wounds bleed less during dressing changes. Vitals: Soft Bps recorded overnight. Current Facility-Administered Medications Medication Dose Route Frequency NaCl 0.9% iv flush bag 20 mL INTRAVENOUS PRN acetaminophen 650 mg tab(s) (TYLENOL) 650 mg ORAL q 6 H PRN aspirin 81 mg chewable tab(s) 81 mg ORAL DAILY midodrine 20 mg tab(s) (PROAMATINE) 20 mg ORAL q 8 H cinacalcet 60 mg tab(s) (SENSIPAR) 60 mg ORAL DAILY sevelamer carbonate 800 mg tab(s) (RENVELA) 800 mg ORAL TID w MEALS polyethylene glycol 3350 17 g packet 17 g ORAL DAILY calcitriol 1.5 mcg cap(s) (ROCALTROL) 1.5 mcg ORAL -- fentaNYL 50 mcg/mL 25 mcg injection (SUBLIMAZE) 25 mcg INTRAVENOUS DAILY PRN warfarin order for discharge OTHER PRN ascorbic acid 500 mg chewable tab(s) 500 mg ORAL DAILY pyridoxine (vitamin B6) 50 mg tab(s) (VITAMIN B6) 50 mg ORAL DAILY vitamin A 10,000 Units cap(s) (AQUASOL A) 10,000 Units ORAL DAILY senna 8.6 mg tab(s) (SENOKOT) 8.6 mg ORAL/FEEDING TUBE BID fentaNYL 50 mcg/mL 50 mcg injection (SUBLIMAZE) 50 mcg INTRAVENOUS DAILY PRN melatonin 3 mg tab(s) 3 mg ORAL/FEEDING TUBE AT BEDTIME PRN Darbepoetin [place] In Polysorbat 60 mcg injection (ARANESP) 60 mcg SUBCUTANEOUS q Wed oxyCODONE IR 15 mg tab(s) (ROXICODONE) 15 mg ORAL q 4 H PRN busPIRone 5 mg tab(s) (BUSPAR) 5 mg ORAL DAILY diazePAM 2.5 mg injection (VALIUM) 2.5 mg INTRAVENOUS BID PRN Objective PHYSICAL EXAM: BP 140/41 Pulse 90 Temp (Src) 97.9 (Oral) Resp 18 Ht 5' 9.685 (1.77m) Wt 255 lb 8.2 oz (115.9kg) SpO2 100% BMI 36.99 kg/(m2). O2 Therapy: Room Air Physical Exam Performed GENERAL: Alert, no distress, cooperative SKIN: Right and Left anterior and posterior chest wounds: chronic, bleeding, no purulent discharge. LUNGS: Lungs clear to auscultation, Good diaphragmatic excursion CARDIAC: Normal S1 and S2; no rubs, murmurs, or gallops ABDOMEN: Abdomen soft, non-tender, BS normal, No masses or organomegaly Lines, Drains, and Airways Line Duration Peripheral 04/26/25 2[facility] Right Forearm 20 Gauge 24 days Dialysis / Apheresis Double Lumen 04/29/25 1005 [facility] Tunneled Right Internal Jugular 21 days DATA: Diagnostic tests reviewed for today's visit: Most recent labs Most recent imaging Most recent EKG Labs: Latest Reference Range AND Units 05/16/25 01:55 05/17/25 07:15 05/18/25 01:30 05/18/25 04:06 Sodium 136 - 144 mmol/L 138 138 137 Potassium 3.7 - 5.1 mmol/L 5.2 (H) 5.7 (H) 4.7 Chloride 98 - 107 mmol/L 98 99 98 CO2 22 - 30 mmol/L 24 22 25 BUN 9 - 24 mg/dL 24 34 (H) 13 Creatinine 0.73 - 1.22 mg/dL 7.82 (H) 9.50 (H) 5.63 (H) Glucose 74 - 99 mg/dL 87 77 105 (H) Protein, Total 6.3 - 8.0 g/dL 7.7 7.2 7.1 Calcium 8.5 - 10.2 mg/dL 7.9 (L) 7.2 (L) 7.9 (L) Magnesium 1.7 - 2.3 mg/dL 2.5 (H) Albumin 3.9 - 4.9 g/dL 3.7 (L) 3.6 (L) 3.4 (L) Bilirubin, Total 0.2 - 1.3 mg/dL 0.3 0.3 0.3 Alkaline Phosphatase 38 - 113 U/L 156 (H) 146 (H) 148 (H) ALT 10 - 54 U/L 13 9 (L) 11 AST 14 - 40 U/L 17 17 21 Anion Gap 8 - 15 mmol/L 16 (H) 17 (H) 14 eGFR >=60 mL/min/1.73m? 8 (L) 6 (L) 12 (L) WBC 3.70 - 11.00 k/uL 7.00 5.76 6.27 RBC 4.20 - 6.00 m/uL 2.55 (L) 2.61 (L) 2.64 (L) Hemoglobin 13.0 - 17.0 g/dL 7.2 (L) 7.4 (L) 7.6 (L) Hematocrit 39.0 - 51.0 % 24.9 (L) 24.0 (L) 24.6 (L) Platelet Count 150 - 400 k/uL 198 185 201 MCV 80.0 - 100.0 fL 97.6 92.0 93.2 MCH 26.0 - 34.0 pg 28.2 28.4 28.8 MCHC 30.5 - 36.0 g/dL 28.9 (L) 30.8 30.9 MPV 9.0 - 12.7 fL 11.6 11.2 11.0 RDW-CV 11.5 - 15.0 % 19.7 (H) 20.5 (H) 20.1 (H) Absolute nRBC <0.01 k/uL <0.01 <0.01 <0.01 PT Sec 9.7 - 13.0 sec 26.8 (H) 34.7 (H) 29.1 (H) PT INR 0.9 - 1.3 2.6 (H) 3.5 (H) 2.9 (H) (H): Data is abnormally high (L): Data is abnormally low Latest Reference Range AND Units 05/19/25 17:19 05/19/25 18:27 PT INR 0.9 - 1.3 2.2 (H) 2.2 (H) (H): Data is abnormally high Transthoracic echocardiogram 05/06/25: EF: 60%, left ventricular hypertrophy, right ventricle normal, trace tricuspid valve regurgitation, trace pulmonic valve regurgitation, no pericardial effusion, aorta normal in size CXR 04/21/25: TDC with tip in RA. Increase of perihilar and basilar opacities with volume loss, suggesting atelectasis, possible underlying edema/inflammation. Blunting of L CP angle, which may represent tiny effusion or pleural thickening. CT A/P 04/22/25: No abdominal or pelvic subcutaneous fluid collection of gas. Redemonstrated diffuse subcutaneous extensive abdominal wall collaterals, similar to prior CTA 10/17/2024. CT chest 04/22/25: extensive chest wall collaterals, few areas of skin ulceration, no areas of drainable fluid collection. Findings consistent with central venous stenoses. Few patchy groundglass opacities, may be related to mild pulm edema YONATHAN 05/18/25: Impression CONCLUSIONS: - Exam indication: ?Endocarditis - The left ventricle is normal in size. There is mild left ventricular hypertrophy. Left ventricular systolic function is normal. EF = 60 ? 5% (visual est.) - The right ventricle is normal in size. Right ventricular systolic function is normal. - The left atrial cavity is dilated. - The right atrial cavity is dilated. - Post mitral valve replacement. On-X prosthetic mitral valve (size #25). - No echocardiographic evidence of endocarditis There is trace (trace - 1+) mitral valve regurgitation. - There is moderate (2+) tricuspid valve regurgitation. - The patient has not had a prior CC echocardiographic exam for comparison. Assessment/Plan Problem List Assessment AND Plan Bleeding from open wound of chest wall, right, initial encounter Secondary hyperparathyroidism, renal (HCC) ESRD on hemodialysis ([facility]) History of non-ST elevation myocardial infarction (NSTEMI) Vitamin D deficiency S/P MVR (mitral valve replacement) Supratherapeutic INR Atrial fibrillation (HCC) Acute on chronic blood loss anemia Adjustment disorder with depressed mood Acquired hypothyroidism Acquired stenosis of superior vena cava Venous collateral circulation Status post Maze operation for atrial fibrillation Ulcers, venous (HCC) Wounds, multiple Anemia due to multiple mechanisms Hemorrhage from open wound of left chest wall Open chest wound, right, sequela Open chest wound, left, sequela Back wound, unspecified laterality, sequela Open wound of abdomen Open wound of right thigh Bleeding from wound Difficult intravenous access Hypervolemia Skin ulcers (HCC) Vitamin C deficiency Vitamin A deficiency Vitamin B6 deficiency Second degree AV block, Mobitz type I Impaired skin integrity HOSPITAL COURSE: Elia Weston is a 45 year old male with extensive PMH, significant for ESRD on HD (MWF) last session 04/18 (skipped Friday since he came to ED), CAD s/p CABG, severe MS s/p MVR on Warfarin (goal INR of 2.5-3.5), pAfib s/p maze procedure and RADHA clip and chronic chest/abdominal/back wounds (3 years) likely secondary to ischemia in context of SVC syndrome and multiple thrombosis, who presented to the ED with 1-day of left chronic chest wound bleeding. Admitted for management of bleeding, and on transfer to [facility], patient began to have significant bleeding from R chest wound. Continuous pressure was applied and bleeding stopped. Now s/p FFP and RBC transfusions as appropriate. Initially started on Vanc/Zosyn given elevated ESR/CRP and WBC, no infectious concern on further imaging with improved lactate WBC, so ABx were stopped. Dermatology and wound care consulted. IR consulted, planning for venoplasty given INR reversal. 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 Hx of hemorrhagic shock from bleeding abdominal wounds - presenting with acute worsening of pain and bleeding from wounds. Denies purulent discharge from wounds. - Leukocytosis + Elevated CRP 22.1 and ESR 133 + Elevated lactate on presentation; concerned for infected wounds/soft tissue infection. Started on IV vanc/zosyn, later d/janie due to low infectious concern (04/21-04/25) - On admission, acute rise in lactate in light of acute significant bleeding and drop in HGB (8.6 from 9.5 in ED) likely secondary to hypovolemia, also missed dialysis - CT venogram on 10/19/24 with b/l brachiocephalic stenosis w b/l subclavian vein occlusion, extensive venous collaterals - 10/22/24: Venoplasty completed by IR, removed L femoral TDC, exchanged R TDC - blood cultures 04/20/25 with NG5D x2 - AMET for hypotension 80/50, s/p 500 cc LR bolus, scheduled midodrine with improved repeat 102/63 - lactate 2.4 from 1.7, improved from 3.2 at admission. Completed 5d course of IV vanc/zosyn (04/21-04/25) - CT chest and CT A/P 04/22/25 with no drainable fluid collections, extensive chest collaterals - nutritional workup: B12 elevated, folate wnl, iron low 26, TIBC low 137, trans sat wnl, low vit D 22.9, zinc 69 wnl, low vit A 0.10 - 04/29/25: Venoplasty: completed by IR. 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 Right upper chest tunneled dialysis catheter was exchanged over a wire for a new on; ready for use PLAN: - IR consulted: > venoplasty 04/29/2025 - no complications - Derm consulted: > ongoing nutritional workup > discontinued clobetasol 0.05% ointment BID per derm, lesion over R scapula, try to simulate tx of PG and assess response > [facility] Derm f/u outpatient - continue vitamin D supplement 5000 unit(s), ascorbic acid 500mg/day, vit B6 50mg/day, vit A 10,000 units/day - wound care team consulted, appreciate care - pain control: tylenol 650 mg q6h prn and oxycodone 10 mg po q6h PRN. > IV fent for dressing changes as needed - plastic surgery consulted: > no indication for surgical intervention at this time - Cautious fluid resuscitation in light of acute bleeding and ESRD anuric on HD - Chest wound dressings to be changed every day - Bilateral Upper Extremity doppler 05/12: No evidence of patent arteriovenous fistulas bilaterally - Patient has uncontrolled pain from his chest wounds/bleeding - Updated Oxycodone to 15mg PO q4 PRN - Patient states he does not want Tylenol as it hasn't worked for him in the past - Patient has better pain control today than yesterday after the updated pain management regimen - Plastic surgery consulted due to ongoing wound bleeding overnight - Plastic surgery will reassess patient's wounds with pain optimization - Plastic surgery suggests pain optimization during dressing changes, and more frequent dressing changes, final note pending (05/19/25) #CAD s/p CABG #Severe MS s/p mechanical MVR on coumadin (Goal 2.5-3.5) #Paroxysmal Afib s/p multiple DCCV s/p Maze procedure + RADHA clip (07/2021) - atrial fibrillation and severe mitral stenosis s/p mechanical mitral valve replacement with On-x valve (INR goal 2.5-3.5), Maze procedure and RADHA clip on 08/21/2021. - Goal INR 2.5- 3.5; on warfarin 2.5 mg daily although patient not sure of dose, has been changed recently; last dose of warfarin Thursday 04/19 - INR elevated to 5.1 on admission, improved to 3.9 s/p 2u FFP 04/21 - possible etiology of supratherapeutic INR: warfarin dose (given patient not sure of home dose) vs malnutrition vs liver disease (less likely given AST/ALT wnl) - INR elevated again to 5.3, patient received po vitamin K 5 mg 04/25. Improved to 1.7 - INR 3.3 on 05/08 - INR of 5.2 on 05/10/25. Warfarin held. PLAN: - given subtherapeutic INR and no intervention by plastic surgery planned, continue bridging to warfarin > goal INR 2.5 - 3.5, given mechanical valve. - Heparin discontinued 05/07 - Daily INR - Follows with Dr. Moreno (cardiology in [place]) for mgmt of Coumadin, will need follow-up outpatient - 1mg Vitamin K IV given to reverse Warfarin, in view of undergoing YONATHAN, with YONATHAN lab protocol of INR<4. - INR 05/11/25: 2.0, 3 mg Warfarin given. - INR 2.1 05/12/2025 warfarin increased to 3.5 - INR: 2.3 05/13/25, warfarin 3 mg ordered - Spoke to patient for considering Heparin GTT inpatient, however, patient refuses - INR 2.6 on 05/15/25: Last dose of warfarin given: 3mg on 05/13/25. 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) - INR from 05/15/2025: 2.6 - 3mg Warfarin ordered PO 05/15/25 - INR 2.6 on 05/16/2025, repeat 3 mg warfarin PO - INR 3.5 on 05/17/25, half dose warfarin PO: 2mg on 05/17/25 - INR 2.9 on 05/18/25, will give 2mg on 05/18/25 - INR pending on 05/19/25 - INR 2.2 on 05/19/25: 3mg Warfarin PO on 05/20/25 - INR 1.7 on 05/21: 3mg Warfarin PO on 05/21/25 # Second-degree AV Block, Mobitz Type I - Patient having multiple episodes of bradycardia in the hospital with low blood pressures - Magnesium level 2.2 (05/05/25) - EKG (05/05/25) shows Second degree AV block, mobitz type 1 - EKG (05/06/25): shows sinus rhythm with 2nd degree AV shantell, mobitz type 1 - Transthoracic echocardiogram 05/06/25: EF: 60%, left ventricular hypertrophy, right ventricle normal, trace tricuspid valve regurgitation, trace pulmonic valve regurgitation, no pericardial effusion, aorta normal in size PLAN: - Cardiology team consulted, appreciate recs - Echocardiogram completed, results as above - Cardiology suggest EP consult given risk of progression of 2nd degree AVB, type 1 to higher degree AVB - EP consult on 05/09/25: Consult in process, signed note pending - EP Consult on 05/09/25 Recommendations: -Suggest YONATHAN to assess for possible endocarditis or other pathology - No current pacemaker indications, however, further investigation warranted due to rapid progression since Sep 2024. - YONATHAN ordered, NPO midnight - Patient was scheduled for YONATHAN on 05/13/25, however, due to hypotension during sedation attempt it was terminated. Plan to schedule YONATHAN with General Anesthesia, per Cardiology, earliest date is Friday05/17/25. - Patient scheduled for YONATHAN for 05/18/25, NPO midnight - Patient has daily EKGs and Telemetry to monitor as of 05/16/25 - YONATHAN 05/19/25: No vegetations see, 1+ MR and 2+ TR seen - No acute infection or structural deficits on YONATHAN, plan is to insert leadless pacemaker per EP team (05/19/25), patient agrees, scheduled for Friday. Left femoral vein patency ultrasound report: Patent vein - NPO 05/23 midnight, for pacemaker on 05/23/25 morning #Constipation - Last recorded bowel movement was on 05/14/25 PLAN: - Polyethylene glycol daily - Start Senna BID #ESRD on HD via Right TDC #Chronic Hypotension #Secondary 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 - iHD at [facility] through R. Tunneled HD catheter MWF - Last dialysis session Friday04/18/2025; missed Fri session because he presented to [facility] ED - anuric at baseline per patient - Serum P=9.7 - completed HD 04/21, now on MWF - PTH elevated 578, Ca 8.3 low PLAN: - nephrology consulted: > continue MWF HD schedule > continue calcitriol MWF - Continue Sensipar, renvela with meals - continue home Midodrine 20mg every 8 hours - Dialysis today on 05/17/25 due to missed dose on 05/16/25 #Anemia of Chronic Disease/ESRD - Baseline hemoglobin 9-11 - iron studies 12/2024: iron 33, TIBC 156, Iron sat 21, ferritin 1327 - Hgb dropping iso bleeding wounds, as above. - received 1u pRBC 04/21, Hgb from 7.3 -> 7.7 post-transfusion - Hgb 6.9 on 04/22, s/p additional 2u pRBC with Hgb in ~8s PLAN: - Hgb goal >8, 8.4 (05/08/25). - chronic wound mgmt, as above - Iron levels of 36, TIBC- WNL, Ferritin high at 996 on 05/08/25, Replete Iron levels for ANABELLA, per Nephrology recommendation, however due to concerns for ongoing possible endocarditis, we will refrain from IV Iron use until further workup. #Code status - Full # Diet - renal # VTE PPx - warfarin # Dispo Planning - Pending clinical course, SW consulted for recent unemployment, c/f food insecurity #Adjustment disorder? #Low mood - Psychology consulted 05/10/25 - Music therapy - Art therapy - Healing services - Aroma therapy, spiritual services, and brief inpatient psychotherapy ordered per Psychology's recommendation, 05/11/25. Medication and Non-Pharmacologic VTE Prophylaxis/Anticoagulants Anticoagulant AND Antiplatelet Medications (From admission, onward) Start Dose Route Frequency Last Action Ordered Stop 04/21/25 0900 aspirin 81 mg chewable tab(s) 81 mg PO DAILY Given, 05/20 1325 04/21/25 0316 -- 04/10/25 1015 activity - mobilize patient ([place]) 04/04/25 0900 graduated compression stockings ([place], [place]) VTE Prophylaxis: VTE prophylaxis appropriate Disposition: To be determined Plan of care discussed with Provider, RN, Patient Plan communicated to: Family Dae Miner MD PGY-1 [place], [phone] My Pager [facility] ([facility] STAFF PHYSICIAN NOTE OF PERSONAL INVOLVEMENT IN CARE I have reviewed the note documented by the resident and I personally participated in the mendoza components. I have discussed the case and management of the patient's care. The following comments revise or confirm relevant mendoza components of the note. No Acute events overnight NO Bleeding, VSS Labs reviewed INR 1.7, 3 mg coumadin tonight EP has planned Pacemaker placement on Friday NPO after Midnight on Friday This note may contain elements from previous notes and elements copied from other sources in patient's Epic record for cohesive documentation. All elements have been reviewed by me today to ensure accuracy and have been updated to reflect relevant clinical elements as well as updated assessment and plan. This note may also be in part produced with the aid of voice-recognition technology. While every attempt is made to correct any typographical errors during dictation, errors may still exist. Beulah Ramey MD, MEd, FACP Staff, Dept. Of Hospital Medicine PAGER - [phone] PT PNL PPP Collected: 05/21/2025 4:14 AM Status: F Source: [facility] Order Comment: Specimen Type : BLOOD SPECIMEN Ordering Facility: [facility] Address: [address] [place] [id number] TYPE CODE TESTS RESULT OUT OF RANGE REFERENCE UNITS LAB 5902-2(LOINC) Prothrombin time 17.9 High 9.7-13.0 sec LAB 6301-6(LOINC) INR PPP 1.7 High 0.9-1.3 Result Comment: Vitamin K An tagonist (VKA) Therapeutic Range: INR 2 to 3 (Target INR of 2.5) Note: For patients treated with VKA drugs, such as warfarin, the [place] [employer] 2012 Guideline recommends a therapeutic INR range of 2 to 3 (target INR of 2.5). This recommendation includes high-risk patients with antiphospholipid syndrome with previous arterial or venous thromboembolism, current-generation mechanical or bioprosthetic aortic heart valve replacement. Note: Patients with mechanical aortic valve replacement and additional risk factors for thromboembolic events (atrial fibrillation, previous thromboembolism, LV dysfunction, hypercoagulable conditions) or an older generation mechanical AVR (i.e., ball in-Cage) or any mechanical MVR should have a INR therapeutic range of 2.5 to 3.5 (target INR of 3). Ranjit YOUSSEF, et al. Chest 2012, 141:7S-47S Kevin RA, et al. [facility] 2017, 70: 252-289 Performed By: #### [id number] # ### [facility] CLIA [id number] [address] [place] [address] [place] CBC PNL BLD AUTO Collected: 5 4:14 AM Status: F Source: [facility] Order Comment: Specimen Type : BLOOD SPECIMEN Ordering Facility: [facility] Address: [address] [place] [address] TYPE CODE TESTS RESULT OUT OF RANGE REFERENCE UNITS LAB 6690-2(LOINC) WBC # Bld Auto 4.92 3.70-11.00 k/uL LAB 789-8(LOINC) RBC # Bld Auto 2.74 Low 4.20-6.00 m/uL LAB 718-7(LOINC) Hgb Bld-mCnc 7.8 Low 13.0-17.0 g/dL LAB 4544-3(LOINC) Hct VFr Bld Auto 25.5 Low 39.0-51.0 % LAB 787-2(LOINC) MCV RBC Auto 93.1 80.0-100.0 fL LAB 785-6(LOINC) MCH RBC Qn Auto 28.5 26.0-34.0 pg LAB 786-4([facility]) MCHC RBC Auto-mCnc 30.6 30.5-36.0 g/dL LAB 05528-2([facility]) RDW RBC-Rto 19.2 High 11.5-15.0 % LAB 777-3([facility]) Platelet # Bld Auto 190 150-400 k/uL LAB 20995-2([facility]) PMV Bld Auto 10.3 9.0-12.7 fL LAB 771-6([facility]) nRBC # Bld Auto <0.01 <0.01 k/uL Performed By: #### [id number] # ### [facility] CLIA [id number] [address] [place] [address] [place] COMP METAB 2000 PNL SERPL Collected: 4:14 AM Status: F Source: [facility] Order Comment: Specimen Type : BLOOD SPECIMEN Ordering Facility: [facility] Address: [address] [place] [address] TYPE CODE TESTS RESULT OUT OF RANGE REFERENCE UNITS LAB 2885-2([facility]) Prot SerPl-mCnc 7.6 6.3-8.0 g/dL LAB 1751-7([facility]) Albumin SerPl-mCnc 3.7 Low 3.9-4.9 g/dL LAB 77543-7([facility]) Calcium SerPl-mCnc 8.1 Low 8.5-10.2 mg/dL LAB 1975-2([facility]) Bilirub SerPl-mCnc 0.3 0.2-1.3 mg/dL LAB 6768-6([facility]) ALP SerPl-cCnc 157 High 38-113 U/L LAB 1920-8(INC) AST SerPl-cCnc 23 14-40 U/L LAB 1742-6(LOINC) ALT SerPl-cCnc 11 10-54 U/L LAB 2345-7([facility]) Glucose SerPl-mCnc 92 74-99 mg/dL Result Comment: The [place] Diabetes Association (ADA) provides guidance for cutoff values for fasting glucose and random glucose. The ADA defines fasting as no caloric intake for at least 8 hours. Fasting plasma glucose results between 100 to 125 mg/dL indicate increased risk for diabetes (prediabetes). Fasting plasma glucose results greater than or equal to 126 mg/dL meet the criteria for diagnosis of diabetes. In the absence of unequivocal hyperglycemia, results should be confirmed by repeat testing. In a patient with classic symptoms of hyperglycemia or hyperglycemic crisis, random plasma glucose results greater than or equal to 200 mg/dL meet the criteria for diagnosis of diabetes. Reference: Standards of Medical Care in Diabetes 2016, [place] Diabetes Association. Diabetes Care. 2016.39(Suppl 1). LAB 3094-0(LOINC) BUN SerPl-mCnc 10 9-24 mg/dL LAB 2160-0(LOINC) Creat SerPl-mCnc 4.64 High 0.73-1.22 mg/dL LAB 2951-2(LOINC) Sodium SerPl-sCnc 137 136-144 mmol/L LAB 2823-3(LOINC) Potassium SerPl-sCnc 4.6 3.7-5.1 mmol/L LAB 2075-0(LOINC) Chloride SerPl-sCnc 97 Low 98-107 mmol/L LAB 2027-9(LOINC) CO2 SerPl-sCnc 27 22-30 mmol/L LAB 62996-8(LOINC) Anion Gap SerPl-sCnc 13 8-15 mmol/L LAB 86024-5(LOINC) eGFRcr SerPlBld CKD-EPI 2020 15 Low >=60 mL/min/1. 73m??? Result Comment: Estimated Gl omerular Filtration Rate (eGFR) is calculated using the 2020 CKD-EPI creatinine equation. This equation utilizes serum creatinine, sex, and age as parameters. The creatinine assay has traceable calibration to isotope dilution-mass spectrometry. Refer to KDIGO guidelines for clinical interpretation. In patients with unstable renal function, e.g. those with acute kidney injury, the eGFR may not accurately reflect actual GFR. Performed By: #### [id number] # ### [facility] CLIA [id number] [address] [place] [address] [place] THERAPY NT Observed: 05/20/2025 3:59 PM Status: COMPLETED Source: [facility] HNO ID: [id number] Author: LUCILLE MURPHY PT Service: Physical Therapy Author Type: Bicycle Subassembler Type: Therapy (PT/OT/Speech/Resp) Filed: 05/23/2025 07:23 Note Text: Attestation signed by Lucille Murphy, PT at 05/23/2025 7:23 AM I reviewed and agree with the documentation corresponding to this therapy visit. SIGNATURE: Lucille Murphy PT DATE: May 23, 2025 TIME: 7:23 AM Physical Therapy Treatment Summary SERVICE DATE: 05/20/2025 SERVICE TIME: 1541 to 1554 ROOM: [place] [address] PT 6 Clicks Score: 22 DISCHARGE RECOMMENDATIONS Home PT Anticipated Discharge Needs: Physical Assist at Home Physical Assist at Home for: Transfers, Cleaning, Laundry, Meals, Stairs, Safety, Self Care, Shopping, Transportation (+ PRN) ASSESSMENT Pt was able to stand and take steps to the chair. Pt's hemoglobin is 6.9, to receive PRBC soon. 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 Has been sleeping in recliner 2/2 to pain. (+) driving SUBJECTIVE THERAPY DIAGNOSIS Reduced mobility-other, Muscle Weakness (generalized), General symptoms and signs-other TREATMENT INTERVENTIONS Therapeutic Activity (61867) Timed Code Treatment (minutes): 13 Skilled Treatment Time (minutes): 13 TRAINING AND EDUCATION PROVIDED Benefits of In-Hospital Mobility, Transfers, Gait Pattern, Reduction of Deviations, Expected Functional Level THERAPEUTIC SKILLS USED Cuing Visual, Cuing Verbal, Cuing Tactile, Cues for Sequencing/Proper Technique for Activity, Activity Dosing FUNCTIONAL STATUS Bed Mobility Supine To Sit: Stand By Assistance Scooting: Stand By Assistance Transfers Sit To Stand: Stand By Assistance Stand To Sit: Stand By Assistance Bed to Chair Stand By Assistance Bed To Chair Transfer Type: Stepping Bed To Chair Transfer Equipment: (IV pole) Gait Stand By Assistance Gait Device: None Gait Distance (feet): 2 Stairs GOALS Patient will demonstrate progress with functional mobility to allow safe discharge to home with available support and/or physical assistance. Rehab Potential: Good Progress Toward Goals: Progressing as expected ACUTE CARE TREATMENT PLAN PT Frequency: Per Next Session Date Treatment Interventions: Education, Self Care / Home Management, Energy Conservation Training, Joint Mobility, Strengthening, Functional Mobility Training, Balance Training, Neuromuscular Re-education Plan for Next Visit: Gait Training, Stair Training SIGNATURE: Artie Chi PTA PATIENT NAME: Elia Weston DATE: May 20, 2025 TIME: 3:59 PM DEEP VEIN MAP UNL VAS LAB Observed: 04/30 2:28 PM Status: F Source: [facility] Non-Invasive Vascular [facility] Portable Lower Extremity Vein Mapping Unilateral - Left Date of service/time: 05/20/2025 2:28:20 PM Name: ELIA WESTON Date of : 1980 Age: 45 years Gender: M Clinical Indication Preoperative exam. FINDINGS -------- LEFT Common femoral vein mid: 13.3 mm Femoral vein proximal: 10.2 mm Femoral vein mid: 6.6 mm Femoral vein distal: 7.1 mm IMPRESSION LEFT Deep vein mapping: Common femoral and femoral veins are patent with measurements as indicated above. Technologist: Cici Hernandez RVT Ordering physician: LUIS CUI Interpreting physician: Rm Lay DO Final CC [facility] Image : [id number] See Link below for Image THERAPY NT Observed: 05/20/2025 1:43 PM Status: COMPLETED Source: [facility] HNO ID: [id number] Author: LUCILLE MURPHY PT Service: Physical Therapy Author Type: Bicycle Subassembler Type: Therapy (PT/OT/Speech/Resp) Filed: 05/20/2025 14:12 Note Text: Attestation signed by Lucille Murphy PT at 05/20/2025 2:12 PM I reviewed and agree with the documentation corresponding to this therapy visit. SIGNATURE: Lucille Murphy PT DATE: May 20, 2025 TIME: 2:12 PM PHYSICAL THERAPY MISSED VISIT SERVICE DATE: 05/20/2025 SERVICE TIME: 1336 ROOM: [place] [address] Patient not seen due to Declined to Participate, just returned from . SIGNATURE: Artie Chi PTA PATIENT NAME: Elia Weston DATE: May 20, 2025 TIME: 1:43 PM TYPE + SCREEN Collected: 05/20/2025 1:21 PM Status: F Source: [facility] Order Comment: Specimen Type : BLOOD SPECIMEN Ordering Facility: [facility] Address: [address] [place] [address] TYPE CODE TESTS RESULT OUT OF RANGE REFERENCE UNITS LAB [id number] ABO B LAB [id number] RH Positive LAB [id number] ANTIBODY SCREEN Negative LAB [id number] TYPE AND SCREEN EXPIRATION 05/23/2025 23:59 Performed By: #### TSCR #### [facility] CLIA [id number] [address] [place] [address] CASE MANAGEM Observed: 05/20/2025 12:05 PM Status: COMPLETED Source: [facility] HNO ID: [id number] Author: NHUNG KINCAID LISW Service: Care Management Author Type: Ppa Teacher Type: Care Mgt Progress Note Filed: 05/20/2025 12:06 Note Text: CARE MANAGEMENT PROGRESS NOTE SERVICE DATE: 05/20/2025 SERVICE TIME: 12:05 PM LOS: 29 days Admission Date: 04/20/2025 Post-Acute Discharge Planning Patient Goal(s): General wellness, Be able to go home Discharge Planning Participant(s): Patient Patient/Family Comments: Anticipated # of Days Until Discharge: 3 Transport at Discharge: Transportation Arrangements: Car Needs Prior to Discharge: To Be Determined, Facility or Agency Choices, Home Care Order, Wound Care Post-Acute Discharge Plan: Unable to secure home care for pt for home PT and wound care. Will continue to search. Please see Treatment Team for Care Management Weekend/Holiday coverage. SIGNATURE: PACO Gardner PATIENT NAME: Elia Weston DATE: May 20, 2025 TIME: 12:05 PM CONSULT PROG Observed: 05/20/2025 11:42 AM Status: COMPLETED Source: [facility] HNO ID: [id number] Author: KIMBERLY LYNN APRN.CNP Service: Wound Care Team Author Type: Nurse Practitioner Type: Consult Progress Note Filed: 05/20/2025 11:43 Note Text: Wound Care Consult Team Assessment Note: PATIENT NAME: Elia Weston WCCT attempted to see patient to follow up on wounds today at 0800, patient is out of room at dialysis at this time. Will attempt to see again at a future date. Kimberly Lynn APRN.FLORAL ASSOCIATE CBC PNL BLD AUTO Collected: 10:04 AM Status: F Source: [facility] Order Comment: Specimen Type : BLOOD SPECIMEN Ordering Facility: [facility] Address: [address] [place] [address] TYPE CODE TESTS RESULT OUT OF RANGE REFERENCE UNITS LAB 6690-2(LOINC) WBC # Bld Auto 4.78 3.70-11.00 k/uL LAB 789-8(LOINC) RBC # Bld Auto 2.35 Low 4.20-6.00 m/uL LAB 718-7(LOINC) Hgb Bld-mCnc 6.9 Low 13.0-17.0 g/dL LAB 4544-3(LOINC) Hct VFr Bld Auto 22.9 Low 39.0-51.0 % LAB 787-2(LOINC) MCV RBC Auto 97.4 80.0-100.0 fL LAB 785-6(LOINC) MCH RBC Qn Auto 29.4 26.0-34.0 pg LAB 786-4(LOINC) MCHC RBC Auto-mCnc 30.1 Low 30.5-36.0 g/dL LAB 74202-8(LOINC) RDW RBC-Rto 19.2 High 11.5-15.0 % LAB 777-3(LOINC) Platelet # Bld Auto 170 150-400 k/uL LAB 59818-8(LOINC) PMV Bld Auto 10.0 9.0-12.7 fL LAB 771-6(LOINC) nRBC # Bld Auto <0.01 <0.01 k/uL Performed By: #### 51194-2 # ### [facility] CLIA [id number] [address] [place] [address] [place] CONSULT PROG Observed: 05/20/2025 9:29 AM Status: COMPLETED Source: [facility] HNO ID: [id number] Author: VICKIE DURHAM APRN.MIKI Service: Nephrology Author Type: Nurse Practitioner Type: Consult Progress Note Filed: 05/20/2025 11:20 Note Text: Department of Kidney Medicine Medical Specialties [place] [facility] NEPHROLOGY CONSULT SERVICE PROGRESS NOTE INTERVAL HISTORY: -No acute events overnight noted requiring immediate intervention Patient seen on IHD. - Orders confirmed and documented in LEONEL - 3 K bath changed to 2 K bath , UF Goal of 2.4 L, in a 4.5 hr treatment -Patient tolerating dialysis well -Denies any chest pain, shortness of breath or dizziness -Denies any nausea, vomiting, muscle aches or headaches Admission weight: 115.6 kg (254 lb 13.6 oz) (Pt refusing to get on scale, states this was his last weight from dialysis on friday) Last recorded weight: 115.9 kg (255 lb 8.2 oz) MEDICATIONS: Current Facility-Administered Medications Medication Dose Route Frequency NaCl 0.9% iv flush bag 20 mL INTRAVENOUS PRN acetaminophen 650 mg tab(s) (TYLENOL) 650 mg ORAL q 6 H PRN aspirin 81 mg chewable tab(s) 81 mg ORAL DAILY midodrine 20 mg tab(s) (PROAMATINE) 20 mg ORAL q 8 H cinacalcet 60 mg tab(s) (SENSIPAR) 60 mg ORAL DAILY sevelamer carbonate 800 mg tab(s) (RENVELA) 800 mg ORAL TID w MEALS polyethylene glycol 3350 17 g packet 17 g ORAL DAILY calcitriol 1.5 mcg cap(s) (ROCALTROL) 1.5 mcg ORAL - LORazepam 0.25 mg tab(s) (ATIVAN) 0.25 mg ORAL DAILY PRN fentaNYL 50 mcg/mL 25 mcg injection (SUBLIMAZE) 25 mcg INTRAVENOUS DAILY PRN warfarin order for discharge OTHER PRN ascorbic acid 500 mg chewable tab(s) 500 mg ORAL DAILY pyridoxine (vitamin B6) 50 mg tab(s) (VITAMIN B6) 50 mg ORAL DAILY vitamin A 10,000 Units cap(s) (AQUASOL A) 10,000 Units ORAL DAILY senna 8.6 mg tab(s) (SENOKOT) 8.6 mg ORAL/FEEDING TUBE BID fentaNYL 50 mcg/mL 50 mcg injection (SUBLIMAZE) 50 mcg INTRAVENOUS DAILY PRN melatonin 3 mg tab(s) 3 mg ORAL/FEEDING TUBE AT BEDTIME PRN Darbepoetin [place] In Polysorbat 60 mcg injection (ARANESP) 60 mcg SUBCUTANEOUS q Wed oxyCODONE IR 15 mg tab(s) (ROXICODONE) 15 mg ORAL q 4 H PRN busPIRone 5 mg tab(s) (BUSPAR) 5 mg ORAL DAILY warfarin (COUMADIN) tab(s) 3 mg 3 mg ORAL/FEEDING TUBE ONCE - WARFARIN ALLERGIES: Gabapentin and Trazodone VITAL SIGNS: BP 126/71 Pulse 104 Temp 36.3 ?C (97.3 ?F) (Oral) Resp 18 Ht 177 cm (5' 9.69) Wt 115.9 kg (255 lb 8.2 oz) SpO2 100% BMI 36.99 kg/m? PHYSICAL EXAM: GENERAL: sleeping but awakens to voice, cooperative, lying in bed SKIN: Skin color, texture, turgor normal. No rashes or lesions. HEENT: normocephalic, moist oral mucosa NECK: no JVD, masses or bruits LUNGS: Good diaphragmatic excursion and normal respiratory effort. CARDIAC: RRR ABDOMEN: soft, EXTREMITIES: BLE edema significant NEURO: AOx3, normal speech, muscle strength grossly intact ACCESS: RIJ TDC accessed with normal findings Lines, Drains, and Airways Line Duration Peripheral 04/26/25 2[facility] Right Forearm 20 Gauge 23 days Dialysis / Apheresis Double Lumen 04/29/25 1005 [facility] Tunneled Right Internal Jugular 20 days Labs: Recent Labs 05/20/25 0713 05/19/25 1828 05/19/25 1827 05/19/25 1719 05/18/25 0406 05/18/25 0130 WBC 5.66 -- 6.16 -- 6.27 -- HB 6.4* -- 7.5* -- 7.6* -- HCT 21.3* -- 24.5* -- 24.6* -- PLT 172 -- 202 -- 201 -- INR 2.1* -- 2.2* 2.2* -- 2.9* NA 139 136 -- -- -- 137 K 5.4* 4.6 -- -- -- 4.7 CHLOR 99 97* -- -- -- 98 CO2 25 25 -- -- -- 25 ANION 15 14 -- -- -- 14 BUN 20 14 -- -- -- 13 CREAT 6.81* 5.89* -- -- -- 5.63* GLUC 95 89 -- -- -- 105* CA 7.3* 7.6* -- -- -- 7.9* Recent Labs 05/20/25 0713 05/19/25 1828 05/18/25 0130 TPROT 6.8 7.4 7.1 ALB 3.4* 3.6* 3.4* ALT 10 11 11 AST 22 27 21 ALKPHOS 138* 145* 148* TBILI 0.2 0.4 0.3 ASSESSMENT: Mr. Weston is a 45 year old male with PMH significant for ESRD on IHD, HTN, SVC syndrome and brachiocephalic chronic occlusive disease c/b chronic chest wall and abdominal varices + venous wounds, chronic pain, jugular vein occlusion, p-AFIB, blind left eye, expressive dysphasia, endocarditis, NSTEMI, HFpEF, Mitral 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, MO, PE, CVA, CHB, colitis, Adjustment Disorder With Depressed Mood, MSSA bacteremia, Proximal Colon Ulcer, Hypothyroidism, Intra-Abdominal Varices, , S/P MAZE procedure, skin ulcers, GERD, YEIMY, DVTs Patient presented to [facility] on 04/20/25 with chief complaint of bloody wound drainage of his chronic Right chest wound and back wounds. Labs on presentation significant for elevated lactic acid, leukocytosis, anemia and supratherapeutic INR. Of note, his previous admission 10/12/2024-11/02/2024 was also for pain and bleeding of the wounds/skin ulcers. Biopsy was consistent with reactive ischemic changes at the time without features of Polyderma Gangrenosum or calciphylaxis. Patient was admitted under general internal medicine team for further management. 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 1.ESRD -Etiology: HTN Renal Biopsy 2005 for renal failure of undetermined etiology. 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 using an angioplasty balloon per IR 2.Electrolytes/acid-base: -Potassium - hyperkalemia, will regulate with DRYWALL SANDER -2K bath -modulating with DRYWALL SANDER 3.Hypertension/Volume Status: -BP 128/72 -hypervolemia on exam significant -Midodrine 20mg q8h -Pre-weight: 116.3 g EDW: 114Kg -Targeting 2.4 L UF with crit line assist 4.Anemia of CKD: - Hgb below ESRD goal - transfusion per primary - last transfusion 05/16/2025 - [employer] 05/08: ferritin 996 TSAT 15.4- deferring IV iron with IE work up - ANABELLA: Weekly Aranesp 5.Secondary renal hyperparathyroidism: -Calcitriol 1.5mcg TIW, Sensipar 60mg daily, Revela 800mg TID with meals PLAN: -IHD today - 2 K bath , UF Goal of 2.4 L, in a 4.5 hr treatment with flushes due to avoiding heparin , -Next IHD on Friday per MWF -EDW 114kg IUF 2.4L today -Weekly Aranesp -continue Calcitriol, Sensipar and Renvela Standard ESRD recommendations and precautions: - Strict IANDOs and Daily weight - Consider a RENAL Diet for HD patients - Fluid restriction < 1 L - Start Nephrocap or other renal multivitamin to replace water-soluble vitamins lost during dialysis - Avoid Lovenox, Gadolinium (MRI contrast), Demerol, Morphine, K-containing IVF, Mg- or Phos- containing enemas -Dose meds eGFR<10 Outpatient dialysis disposition plan: contact [phone] and ask to speak with the director of front office as needed for assistance with post-discharge arrangements. Please DO NOT schedule patient for a nephrology follow up appointment. Kidney care will be provided by the primary data warehousing engineer at their dialysis unit upon hospital discharge. Vickie Durham APRN.FLORAL ASSOCIATE Nephrology and Hypertension [facility] May 20, 2025 11:15 AM PAGER # [phone] Disclosures: Parts of the current progress note may have been copied from a previous note. FOR AFTER HOUR CONCERNS BETWEEN 5PM - 7AM CONTACT ON-CALL NEPHROLOGY FELLOW [phone] CBC PNL BLD AUTO Collected: 7:13 AM Status: F Source: [facility] Order Comment: Specimen Type : BLOOD SPECIMEN Ordering Facility: [facility] Address: [address] [place] [address] TYPE CODE TESTS RESULT OUT OF RANGE REFERENCE UNITS LAB 6690-2(LOINC) WBC # Bld Auto 5.66 3.70-11.00 k/uL LAB 789-8(LOINC) RBC # Bld Auto 2.21 Low 4.20-6.00 m/uL LAB 718-7(INC) Hgb Bld-mCnc 6.4 Low 13.0-17.0 g/dL LAB 4544-3(INC) Hct VFr Bld Auto 21.3 Low 39.0-51.0 % LAB 787-2(INC) MCV RBC Auto 96.4 80.0-100.0 fL LAB 785-6([facility]) MCH RBC Qn Auto 29.0 26.0-34.0 pg LAB 786-4(LOINC) MCHC RBC Auto-mCnc 30.0 Low 30.5-36.0 g/dL LAB 69378-3([facility]) RDW RBC-Rto 19.5 High 11.5-15.0 % LAB 777-3(INC) Platelet # Bld Auto 172 150-400 k/uL LAB 41206-9([facility]) PMV Bld Auto 11.2 9.0-12.7 fL LAB 771-6([facility]) nRBC # Bld Auto <0.01 <0.01 k/uL Performed By: #### 81753-3 # ### [facility] CLIA [id number] [address] [place] [address] [place] COMP METAB 2000 PNL SERPL Collected: 7:13 AM Status: F Source: [facility] Order Comment: Specimen Type : BLOOD SPECIMEN Ordering Facility: [facility] Address: [address] [place] [address] TYPE CODE TESTS RESULT OUT OF RANGE REFERENCE UNITS LAB 2885-2(INC) Prot SerPl-mCnc 6.8 6.3-8.0 g/dL LAB 1751-7(LOINC) Albumin SerPl-mCnc 3.4 Low 3.9-4.9 g/dL LAB 27595-8(LOINC) Calcium SerPl-mCnc 7.3 Low 8.5-10.2 mg/dL LAB 1975-2(LOINC) Bilirub SerPl-mCnc 0.2 0.2-1.3 mg/dL LAB 6768-6(LOINC) ALP SerPl-cCnc 138 High 38-113 U/L LAB 1920-8(LOINC) AST SerPl-cCnc 22 14-40 U/L LAB 1742-6(LOINC) ALT SerPl-cCnc 10 10-54 U/L LAB 2345-7(LOINC) Glucose SerPl-mCnc 95 74-99 mg/dL Result Comment: The [place] Diabetes Association (ADA) provides guidance for cutoff values for fasting glucose and random glucose. The ADA defines fasting as no caloric intake for at least 8 hours. Fasting plasma glucose results between 100 to 125 mg/dL indicate increased risk for diabetes (prediabetes). Fasting plasma glucose results greater than or equal to 126 mg/dL meet the criteria for diagnosis of diabetes. In the absence of unequivocal hyperglycemia, results should be confirmed by repeat testing. In a patient with classic symptoms of hyperglycemia or hyperglycemic crisis, random plasma glucose results greater than or equal to 200 mg/dL meet the criteria for diagnosis of diabetes. Reference: Standards of Medical Care in Diabetes 2016, [place] Diabetes Association. Diabetes Care. 2016.39(Suppl 1). LAB 3094-0(LOINC) BUN SerPl-mCnc 20 9-24 mg/dL LAB 2160-0(LOINC) Creat SerPl-mCnc 6.81 High 0.73-1.22 mg/dL LAB 2951-2(LOINC) Sodium SerPl-sCnc 139 136-144 mmol/L LAB 2823-3(LOINC) Potassium SerPl-sCnc 5.4 High 3.7-5.1 mmol/L LAB 2075-0(LOINC) Chloride SerPl-sCnc 99 98-107 mmol/L LAB 2028-9(LOINC) CO2 SerPl-sCnc 25 22-30 mmol/L LAB 54464-8(LOINC) Anion Gap SerPl-sCnc 15 8-15 mmol/L LAB 02288-4(LOINC) eGFRcr SerPlBld CKD-EPI 2020 10 Low >=60 mL/min/1. 73m??? Result Comment: Estimated Gl omerular Filtration Rate (eGFR) is calculated using the 2020 CKD-EPI creatinine equation. This equation utilizes serum creatinine, sex, and age as parameters. The creatinine assay has traceable calibration to isotope dilution-mass spectrometry. Refer to KDIGO guidelines for clinical interpretation. In patients with unstable renal function, e.g. those with acute kidney injury, the eGFR may not accurately reflect actual GFR. Performed By: #### 89389-0 # ### [facility] CLIA [id number] [address] [place] [address] PT PNL PPP Collected: 05/20/2025 7:13 AM Status: F Source: [facility] Order Comment: Specimen Type : BLOOD SPECIMEN Ordering Facility: [facility] Address: [address] [place] [address] TYPE CODE TESTS RESULT OUT OF RANGE REFERENCE UNITS LAB 5902-2(LOINC) Prothrombin time 21.8 High 9.7-13.0 sec LAB 6301-6(LOINC) INR PPP 2.1 High 0.9-1.3 Result Comment: Vitamin K An tagonist (VKA) Therapeutic Range: INR 2 to 3 (Target INR of 2.5) Note: For patients treated with VKA drugs, such as warfarin, the [place] College [employer] Chest Physicians 2012 Guideline recommends a therapeutic INR range of 2 to 3 (target INR of 2.5). This recommendation includes high-risk patients with antiphospholipid syndrome with previous arterial or venous thromboembolism, current-generation mechanical or bioprosthetic aortic heart valve replacement. Note: Patients with mechanical aortic valve replacement and additional risk factors for thromboembolic events (atrial fibrillation, previous thromboembolism, LV dysfunction, hypercoagulable conditions) or an older generation mechanical AVR (i.e., ball in-Cage) or any mechanical MVR should have a INR therapeutic range of 2.5 to 3.5 (target INR of 3). Ranjit GH, et al. Chest 2012, 141:7S-47S Kevin RA et al. JACC 2017, 70: 252-289 Performed By: #### 55110-5 # ### [facility] CLIA [id number] [address] [place] [address] OF [facility] PROGRESS Observed: 05/20/2025 6:29 AM Status: COMPLETED Source: [facility] HNO ID: [id number] Author: LUIS CUI MD Service: General Internal Medicine Author Type: Resident Type: Progress Notes Filed: 05/20/2025 20:22 Note Text: Attestation signed by Luis Cui MD at 05/20/2025 8:22 PM TEACHING PHYSICIAN NOTE OF PERSONAL INVOLVEMENT IN CARE I have reviewed the Progress Note obtained and documented by Resident and I personally participated in the mendoza components. I have discussed the case and management of the patient's care with them. The following comments revise or confirm relevant mendoza components of the note. Agree with assessment and plan. Greenhouse Manager:Prolonged Service: I personally spent greater than 30 minutes involved in patient care and coordination of services for this patient Luis Cui MD Authenticated by responsible provider. DEPARTMENT OF HOSPITAL MEDICINE PROGRESS NOTE SERVICE DATE: 05/20/2025 SERVICE TIME: 11:26 AM Hospital Medicine/Primary Attending: Luis Cui MD NIGHT AND WEEKEND COVERAGE: [facility] COVERAGE: Nights: [phone], please page Team Jeffrey Haq; overnight/admitting pager [phone] Subjective Chief Complaint: Pain and chronic chest wound bleeding INTERVAL HPI: Mr. 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 Patient was hospitalized in September 2024 to October 2024 for pain and bleeding from the wounds. Patient was seen by dermatology back then for his skin ulcers. Biopsy performed and was most c/w reactive ischemic changes without features of Pyoderma Gangrenosum or Calciphylaxis. Now, plan for venoplasty with IR pending improvement in INR. Dermatology consulted and underwent steroid trial at wound edge. He was bridged to warfarin while here given his history of mechanical valve. Stay further complicated by new bradycardia, found to have Mobitz 1 second-degree AV block for which cardiology/EP was consulted. Overnight Events: NAEON Bedside: Patient in dialysis Vitals: Soft Bps recorded overnight. Current Facility-Administered Medications Medication Dose Route Frequency NaCl 0.9% iv flush bag 20 mL INTRAVENOUS PRN acetaminophen 650 mg tab(s) (TYLENOL) 650 mg ORAL q 6 H PRN aspirin 81 mg chewable tab(s) 81 mg ORAL DAILY midodrine 20 mg tab(s) (PROAMATINE) 20 mg ORAL q 8 H cinacalcet 60 mg tab(s) (SENSIPAR) 60 mg ORAL DAILY sevelamer carbonate 800 mg tab(s) (RENVELA) 800 mg ORAL TID w MEALS polyethylene glycol 3350 17 g packet 17 g ORAL DAILY calcitriol 1.5 mcg cap(s) (ROCALTROL) 1.5 mcg ORAL - LORazepam 0.25 mg tab(s) (ATIVAN) 0.25 mg ORAL DAILY PRN fentaNYL 50 mcg/mL 25 mcg injection (SUBLIMAZE) 25 mcg INTRAVENOUS DAILY PRN warfarin order for discharge OTHER PRN ascorbic acid 500 mg chewable tab(s) 500 mg ORAL DAILY pyridoxine (vitamin B6) 50 mg tab(s) (VITAMIN B6) 50 mg ORAL DAILY vitamin A 10,000 Units cap(s) (AQUASOL A) 10,000 Units ORAL DAILY senna 8.6 mg tab(s) (SENOKOT) 8.6 mg ORAL/FEEDING TUBE BID fentaNYL 50 mcg/mL 50 mcg injection (SUBLIMAZE) 50 mcg INTRAVENOUS DAILY PRN melatonin 3 mg tab(s) 3 mg ORAL/FEEDING TUBE AT BEDTIME PRN Darbepoetin [place] In Polysorbat 60 mcg injection (ARANESP) 60 mcg SUBCUTANEOUS q Wed oxyCODONE IR 15 mg tab(s) (ROXICODONE) 15 mg ORAL q 4 H PRN busPIRone 5 mg tab(s) (BUSPAR) 5 mg ORAL DAILY warfarin (COUMADIN) tab(s) 3 mg 3 mg ORAL/FEEDING TUBE ONCE - WARFARIN Objective PHYSICAL EXAM: BP 126/71 Pulse 104 Temp (Src) 97.3 (Oral) Resp 18 Ht 5' 9.685 (1.77m) Wt 255 lb 8.2 oz (115.9kg) SpO2 100% BMI 36.99 kg/(m2). Physical Exam Performed GENERAL: Alert, no distress, cooperative SKIN: Right and Left anterior and posterior chest wounds: chronic, bleeding, no purulent discharge. LUNGS: Lungs clear to auscultation, Good diaphragmatic excursion CARDIAC: Normal S1 and S2; no rubs, murmurs, or gallops ABDOMEN: Abdomen soft, non-tender, BS normal, No masses or organomegaly Lines, Drains, and Airways Line Duration Peripheral 04/26/25 2100 [facility] Right Forearm 20 Gauge 23 days Dialysis / Apheresis Double Lumen 04/29/25 1005 [facility] Tunneled Right Internal Jugular 21 days DATA: Diagnostic tests reviewed for today's visit: Most recent labs Most recent imaging Most recent EKG Labs: Latest Reference Range AND Units 05/16/25 01:55 05/17/25 07:15 05/18/25 01:30 05/18/25 04:06 Sodium 136 - 144 mmol/L 138 138 137 Potassium 3.7 - 5.1 mmol/L 5.2 (H) 5.7 (H) 4.7 Chloride 98 - 107 mmol/L 98 99 98 CO2 22 - 30 mmol/L 24 22 25 BUN 9 - 24 mg/dL 24 34 (H) 13 Creatinine 0.73 - 1.22 mg/dL 7.82 (H) 9.50 (H) 5.63 (H) Glucose 74 - 99 mg/dL 87 77 105 (H) Protein, Total 6.3 - 8.0 g/dL 7.7 7.2 7.1 Calcium 8.5 - 10.2 mg/dL 7.9 (L) 7.2 (L) 7.9 (L) Magnesium 1.7 - 2.3 mg/dL 2.5 (H) Albumin 3.9 - 4.9 g/dL 3.7 (L) 3.6 (L) 3.4 (L) Bilirubin, Total 0.2 - 1.3 mg/dL 0.3 0.3 0.3 Alkaline Phosphatase 38 - 113 U/L 156 (H) 146 (H) 148 (H) ALT 10 - 54 U/L 13 9 (L) 11 AST 14 - 40 U/L 17 17 21 Anion Gap 8 - 15 mmol/L 16 (H) 17 (H) 14 eGFR >=60 mL/min/1.73m? 8 (L) 6 (L) 12 (L) WBC 3.70 - 11.00 k/uL 7.00 5.76 6.27 RBC 4.20 - 6.00 m/uL 2.55 (L) 2.61 (L) 2.64 (L) Hemoglobin 13.0 - 17.0 g/dL 7.2 (L) 7.4 (L) 7.6 (L) Hematocrit 39.0 - 51.0 % 24.9 (L) 24.0 (L) 24.6 (L) Platelet Count 150 - 400 k/uL 198 185 201 MCV 80.0 - 100.0 fL 97.6 92.0 93.2 MCH 26.0 - 34.0 pg 28.2 28.4 28.8 MCHC 30.5 - 36.0 g/dL 28.9 (L) 30.8 30.9 MPV 9.0 - 12.7 fL 11.6 11.2 11.0 RDW-CV 11.5 - 15.0 % 19.7 (H) 20.5 (H) 20.1 (H) Absolute nRBC <0.01 k/uL <0.01 <0.01 <0.01 PT Sec 9.7 - 13.0 sec 26.8 (H) 34.7 (H) 29.1 (H) PT INR 0.9 - 1.3 2.6 (H) 3.5 (H) 2.9 (H) (H): Data is abnormally high (L): Data is abnormally low Latest Reference Range AND Units 05/19/25 17:19 05/19/25 18:27 PT INR 0.9 - 1.3 2.2 (H) 2.2 (H) (H): Data is abnormally high Transthoracic echocardiogram 05/06/25: EF: 60%, left ventricular hypertrophy, right ventricle normal, trace tricuspid valve regurgitation, trace pulmonic valve regurgitation, no pericardial effusion, aorta normal in size CXR 04/21/25: TDC with tip in RA. Increase of perihilar and basilar opacities with volume loss, suggesting atelectasis, possible underlying edema/inflammation. Blunting of L CP angle, which may represent tiny effusion or pleural thickening. CT A/P 04/22/25: No abdominal or pelvic subcutaneous fluid collection of gas. Redemonstrated diffuse subcutaneous extensive abdominal wall collaterals, similar to prior CTA 10/17/2024. CT chest 04/22/25: extensive chest wall collaterals, few areas of skin ulceration, no areas of drainable fluid collection. Findings consistent with central venous stenoses. Few patchy groundglass opacities, may be related to mild pulm edema YONATHAN 05/18/25: Impression CONCLUSIONS: - Exam indication: ?Endocarditis - The left ventricle is normal in size. There is mild left ventricular hypertrophy. Left ventricular systolic function is normal. EF = 60 ? 5% (visual est.) - The right ventricle is normal in size. Right ventricular systolic function is normal. - The left atrial cavity is dilated. - The right atrial cavity is dilated. - Post mitral valve replacement. On-X prosthetic mitral valve (size #25). - No echocardiographic evidence of endocarditis There is trace (trace - 1+) mitral valve regurgitation. - There is moderate (2+) tricuspid valve regurgitation. - The patient has not had a prior CC echocardiographic exam for comparison. Assessment/Plan Problem List Assessment AND Plan Bleeding from open wound of chest wall, right, initial encounter Secondary hyperparathyroidism, renal (HCC) ESRD on hemodialysis ([facility]) History of non-ST elevation myocardial infarction (NSTEMI) Vitamin D deficiency S/P MVR (mitral valve replacement) Supratherapeutic INR Atrial fibrillation (HCC) Acute on chronic blood loss anemia Adjustment disorder with depressed mood Acquired hypothyroidism Acquired stenosis of superior vena cava Venous collateral circulation Status post Maze operation for atrial fibrillation Ulcers, venous (HCC) Wounds, multiple Anemia due to multiple mechanisms Hemorrhage from open wound of left chest wall Open chest wound, right, sequela Open chest wound, left, sequela Back wound, unspecified laterality, sequela Open wound of abdomen Open wound of right thigh Bleeding from wound Difficult intravenous access Hypervolemia Skin ulcers (HCC) Vitamin C deficiency Vitamin A deficiency Vitamin B6 deficiency Second degree AV block, Mobitz type I Impaired skin integrity HOSPITAL COURSE: Elia Weston is a 45 year old male with extensive PMH, significant for ESRD on HD (MWF) last session 04/18 (skipped Friday since he came to ED), CAD s/p CABG, severe MS s/p MVR on Warfarin (goal INR of 2.5-3.5), pAfib s/p maze procedure and RADHA clip and chronic chest/abdominal/back wounds (3 years) likely secondary to ischemia in context of SVC syndrome and multiple thrombosis, who presented to the ED with 1-day of left chronic chest wound bleeding. Admitted for management of bleeding, and on transfer to [facility], patient began to have significant bleeding from R chest wound. Continuous pressure was applied and bleeding stopped. Now s/p FFP and RBC transfusions as appropriate. Initially started on Vanc/Zosyn given elevated ESR/CRP and WBC, no infectious concern on further imaging with improved lactate WBC, so ABx were stopped. Dermatology and wound care consulted. IR consulted, planning for venoplasty given INR reversal. 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 Hx of hemorrhagic shock from bleeding abdominal wounds - presenting with acute worsening of pain and bleeding from wounds. Denies purulent discharge from wounds. - Leukocytosis + Elevated CRP 22.1 and ESR 133 + Elevated lactate on presentation; concerned for infected wounds/soft tissue infection. Started on IV vanc/zosyn, later d/janie due to low infectious concern (04/21-04/25) - On admission, acute rise in lactate in light of acute significant bleeding and drop in HGB (8.6 from 9.5 in ED) likely secondary to hypovolemia, also missed dialysis - CT venogram on 10/19/24 with b/l brachiocephalic stenosis w b/l subclavian vein occlusion, extensive venous collaterals - 10/22/24: Venoplasty completed by IR, removed L femoral TDC, exchanged R TDC - blood cultures 04/20/25 with NG5D x2 - AMET for hypotension 80/50, s/p 500 cc LR bolus, scheduled midodrine with improved repeat 102/63 - lactate 2.4 from 1.7, improved from 3.2 at admission. Completed 5d course of IV vanc/zosyn (04/21-04/25) - CT chest and CT A/P 04/22/25 with no drainable fluid collections, extensive chest collaterals - nutritional workup: B12 elevated, folate wnl, iron low 26, TIBC low 137, trans sat wnl, low vit D 22.9, zinc 69 wnl, low vit A 0.10 - 04/29/25: Venoplasty: completed by IR. 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 Right upper chest tunneled dialysis catheter was exchanged over a wire for a new on; ready for use PLAN: - IR consulted: > venoplasty 04/29/2025 - no complications - Derm consulted: > ongoing nutritional workup > discontinued clobetasol 0.05% ointment BID per derm, lesion over R scapula, try to simulate tx of PG and assess response > [facility] Derm f/u outpatient - continue vitamin D supplement 5000 unit(s), ascorbic acid 500mg/day, vit B6 50mg/day, vit A 10,000 units/day - wound care team consulted, appreciate care - pain control: tylenol 650 mg q6h prn and oxycodone 10 mg po q6h PRN. > IV fent for dressing changes as needed - plastic surgery consulted: > no indication for surgical intervention at this time - Cautious fluid resuscitation in light of acute bleeding and ESRD anuric on HD - Chest wound dressings to be changed every day - Bilateral Upper Extremity doppler 05/12: No evidence of patent arteriovenous fistulas bilaterally - Patient has uncontrolled pain from his chest wounds/bleeding - Updated Oxycodone to 15mg PO q4 PRN - Patient states he does not want Tylenol as it hasn't worked for him in the past - Patient has better pain control today than yesterday after the updated pain management regimen - Plastic surgery consulted due to ongoing wound bleeding overnight - Plastic surgery will reassess patient's wounds with pain optimization - Plastic surgery suggests pain optimization during dressing changes, and more frequent dressing changes, final note pending (05/19/25) #CAD s/p CABG #Severe MS s/p mechanical MVR on coumadin (Goal 2.5-3.5) #Paroxysmal Afib s/p multiple DCCV s/p Maze procedure + RADHA clip (07/2021) - atrial fibrillation and severe mitral stenosis s/p mechanical mitral valve replacement with On-x valve (INR goal 2.5-3.5), Maze procedure and RADHA clip on 08/21/2021. - Goal INR 2.5- 3.5; on warfarin 2.5 mg daily although patient not sure of dose, has been changed recently; last dose of warfarin Thursday 04/19 - INR elevated to 5.1 on admission, improved to 3.9 s/p 2u FFP 04/21 - possible etiology of supratherapeutic INR: warfarin dose (given patient not sure of home dose) vs malnutrition vs liver disease (less likely given AST/ALT wnl) - INR elevated again to 5.3, patient received po vitamin K 5 mg 04/25. Improved to 1.7 - INR 3.3 on 05/08 - INR of 5.2 on 05/10/25. Warfarin held. PLAN: - given subtherapeutic INR and no intervention by plastic surgery planned, continue bridging to warfarin > goal INR 2.5 - 3.5, given mechanical valve. - Heparin discontinued 05/07 - Daily INR - Follows with Dr. Moreno (cardiology in [place]) for mgmt of Coumadin, will need follow-up outpatient - 1mg Vitamin K IV given to reverse Warfarin, in view of undergoing YONATHAN, with YONATHAN lab protocol of INR<4. - INR 05/11/25: 2.0, 3 mg Warfarin given. - INR 2.1 05/12/2025 warfarin increased to 3.5 - INR: 2.3 05/13/25, warfarin 3 mg ordered - Spoke to patient for considering Heparin GTT inpatient, however, patient refuses - INR 2.6 on 05/15/25: Last dose of warfarin given: 3mg on 05/13/25. 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) - INR from 05/15/2025: 2.6 - 3mg Warfarin ordered PO 05/15/25 - INR 2.6 on 05/16/2025, repeat 3 mg warfarin PO - INR 3.5 on 05/17/25, half dose warfarin PO: 2mg on 05/17/25 - INR 2.9 on 05/18/25, will give 2mg on 05/18/25 - INR pending on 05/19/25 - INR 2.2 on 05/19/25: 3mg Warfarin PO on 05/20/25 # Second-degree AV Block, Mobitz Type I - Patient having multiple episodes of bradycardia in the hospital with low blood pressures - Magnesium level 2.2 (05/05/25) - EKG (05/05/25) shows Second degree AV block, mobitz type 1 - EKG (05/06/25): shows sinus rhythm with 2nd degree AV shantell, mobitz type 1 - Transthoracic echocardiogram 05/06/25: EF: 60%, left ventricular hypertrophy, right ventricle normal, trace tricuspid valve regurgitation, trace pulmonic valve regurgitation, no pericardial effusion, aorta normal in size PLAN: - Cardiology team consulted, appreciate recs - Echocardiogram completed, results as above - Cardiology suggest EP consult given risk of progression of 2nd degree AVB, type 1 to higher degree AVB - EP consult on 05/09/25: Consult in process, signed note pending - EP Consult on 05/09/25 Recommendations: -Suggest YONATHAN to assess for possible endocarditis or other pathology - No current pacemaker indications, however, further investigation warranted due to rapid progression since Sep 2024. - YONATHAN ordered, NPO midnight - Patient was scheduled for YONATHAN on 05/13/25, however, due to hypotension during sedation attempt it was terminated. Plan to schedule YONATHAN with General Anesthesia, per Cardiology, earliest date is Friday05/17/25. - Patient scheduled for YONATHAN for 05/18/25, NPO midnight - Patient has daily EKGs and Telemetry to monitor as of 05/16/25 - YONATHAN 05/19/25: No vegetations see, 1+ MR and 2+ TR seen - No acute infection or structural deficits on YONATHAN, plan is to insert leadless pacemaker per EP team (05/19/25), patient agrees, will schedule. Left femoral vein patency ultrasound report pending. #Constipation - Last recorded bowel movement was on 05/14/25 PLAN: - Polyethylene glycol daily - Start Senna BID #ESRD on HD via Right TDC #Chronic Hypotension #Secondary 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 - iHD at [facility] through R. Tunneled HD catheter MWF - Last dialysis session Friday04/18/2025; missed Fri session because he presented to [facility] ED - anuric at baseline per patient - Serum P=9.7 - completed HD 04/21, now on MWF - PTH elevated 578, Ca 8.3 low PLAN: - nephrology consulted: > continue MWF HD schedule > continue calcitriol MWF - Continue Sensipar, renvela with meals - continue home Midodrine 20mg every 8 hours - Dialysis today on 05/17/25 due to missed dose on 05/16/25 #Anemia of Chronic Disease/ESRD - Baseline hemoglobin 9-11 - iron studies 12/2024: iron 33, TIBC 156, Iron sat 21, ferritin 1327 - Hgb dropping iso bleeding wounds, as above. - received 1u pRBC 04/21, Hgb from 7.3 -> 7.7 post-transfusion - Hgb 6.9 on 04/22, s/p additional 2u pRBC with Hgb in ~8s PLAN: - Hgb goal >8, 8.4 (05/08/25). - chronic wound mgmt, as above - Iron levels of 36, TIBC- WNL, Ferritin high at 996 on 05/08/25, Replete Iron levels for ANABELLA, per Nephrology recommendation, however due to concerns for ongoing possible endocarditis, we will refrain from IV Iron use until further workup. #Code status - Full # Diet - renal # VTE PPx - warfarin # Dispo Planning - Pending clinical course, SW consulted for recent unemployment, c/f food insecurity #Adjustment disorder? #Low mood - Psychology consulted 05/10/25 - Music therapy - Art therapy - Healing services - Aroma therapy, spiritual services, and brief inpatient psychotherapy ordered per Psychology's recommendation, 05/11/25. Medication and Non-Pharmacologic VTE Prophylaxis/Anticoagulants Anticoagulant AND Antiplatelet Medications (From admission, onward) Start Dose Route Frequency Last Action Ordered Stop 05/20/25 1700 warfarin (COUMADIN) tab(s) 3 mg 3 mg PO/FT ONCE - WARFARIN Ordered 05/20/25 0853 05/21/25 0459 04/21/25 0900 aspirin 81 mg chewable tab(s) 81 mg PO DAILY Given, 05/19 0842 04/21/25 0316 -- 04/10/25 1015 activity - [place]ize [place] ([place]) 04/04/25 0900 graduated compression stockings ([place] VTE Prophylaxis: VTE prophylaxis appropriate Disposition: To be determined Plan of care discussed with Provider, RN, Patient Plan communicated to: Family Dae Miner MD PGY-1 [place], [address] My Pager CONSULT PROG Observed: 05/20/2025 6:02 AM Status: COMPLETED Source: [facility] HNO ID: [id number] Author: KENTRELL BHARDWAJ MD Service: Electrophysiology Author Type: Fellow Type: Consult Progress Note Filed: 05/20/2025 06:03 Note Text: [facility] ELECTROPHYSIOLOGY CONSULT PROGRESS NOTE Elia Weston [id number] PRIMARY SERVICE: Internal Medicine CONSULTING SERVICE: Electrophysiology DATE OF ADMISSION: 04/20/2025 REASON FOR CONSULT: AV block IMPRESSION AND RECOMMENDATIONS: 45M with ESRD on HD, 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 The EP service are now consulted for rhythm management. - Apr: Awaiting YONATHAN. - Apr: Awaiting YONATHAN. ECG with DE continuing to prolong (~450 ms). - Apr: Unable to undergo YONATHAN with conscious sedation (required a lot of sedation to be comfortable resulting in hypotension). - 16 Apr: ECG demonstrates DE ~430 ms - 18 Apr: Discussed EP plan in detail (YONATHAN to assess for IE, if no IE leadless PPM; if IE, multidisciplinary treatment including possible OHS). - Apr: YONATHAN formal read without evidence of endocarditis - Apr: Atropine 0.5mg administered bedside: pre-atropine DE 420ms at HR 93, post-atropine DE 420ms at HR 113 Recommendations: - Notable DE prolongation this admission (~420 ms) as compared to prior (~220 ms in Sep 2024). Initially suspicious for aortic root infection however YONATHAN reassuring - BCX x2 from admission (20 April) negative. - Of note, DE interval did not accommodate with atropine - In the absence of clear IE, will plan to proceed with leadless PPM implant before discharge - Please obtain an US of the left femoral vein for pre-procedure assessment given limited options for access - Please obtain 12-lead ECG daily to reassess DE interval - The EP Consult service shall continue to follow with you Electrophysiology Pre-Procedure Checklist: Procedure: Leadless PPM Important Considerations: L femoral access only (SVC occluded, R femoral not accessible) Indication: Post-op conduction disease Consent: Signed and uploaded to chart Allergies: No allergies relevant to the procedure Vitals: Stable, able to lie flat Signs of infection: None IV Access: Adequate Labs: Cr, coagulation panel, and PLT within acceptable ranges Type and screen: To be updated with AM labs Anticoagulation: Warfarin for AF, monitor INR daily Status: Not Ready, left groin ultrasound Kentrell Bhardwaj MD Cardiac Electrophysiology Fellow PGY-7 Heart,Vascular, and Thoracic [facility] COMP METAB 2000 PNL SERPL Collected: 6:28 PM Status: F Source: [facility] Order Comment: Specimen Type : BLOOD SPECIMEN Ordering Facility: [facility] Address: [address] [place] [address] TYPE CODE TESTS RESULT OUT OF RANGE REFERENCE UNITS LAB 2885-2(LOINC) Prot SerPl-mCnc 7.4 6.3-8.0 g/dL LAB 1751-7(LOINC) Albumin SerPl-mCnc 3.6 Low 3.9-4.9 g/dL LAB 00051-0(LOINC) Calcium SerPl-mCnc 7.6 Low 8.5-10.2 mg/dL LAB 1975-2(LOINC) Bilirub SerPl-mCnc 0.4 0.2-1.3 mg/dL LAB 6768-6(LOINC) ALP SerPl-cCnc 145 High 38-113 U/L LAB 1920-8(LOINC) AST SerPl-cCnc 27 14-40 U/L LAB 1742-6(LOINC) ALT SerPl-cCnc 11 10-54 U/L LAB 2345-7(LOINC) Glucose SerPl-mCnc 89 74-99 mg/dL Result Comment: The [place] Diabetes Association (ADA) provides guidance for cutoff values for fasting glucose and random glucose. The ADA defines fasting as no caloric intake for at least 8 hours. Fasting plasma glucose results between 100 to 125 mg/dL indicate increased risk for diabetes (prediabetes). Fasting plasma glucose results greater than or equal to 126 mg/dL meet the criteria for diagnosis of diabetes. In the absence of unequivocal hyperglycemia, results should be confirmed by repeat testing. In a patient with classic symptoms of hyperglycemia or hyperglycemic crisis, random plasma glucose results greater than or equal to 200 mg/dL meet the criteria for diagnosis of diabetes. Reference: Standards of Medical Care in Diabetes 2016, [place] Diabetes Association. Diabetes Care. 2016.39(Suppl 1). LAB 3094-0(LOINC) BUN SerPl-mCnc 14 9-24 mg/dL LAB 2160-0(LOINC) Creat SerPl-mCnc 5.89 High 0.73-1.22 mg/dL LAB 2951-2(LOINC) Sodium SerPl-sCnc 136 136-144 mmol/L LAB 2823-3(LOINC) Potassium SerPl-sCnc 4.6 3.7-5.1 mmol/L LAB 2075-0(LOINC) Chloride SerPl-sCnc 97 Low 98-107 mmol/L LAB 2028-9(LOINC) CO2 SerPl-sCnc 25 22-30 mmol/L LAB 92610-1(LOINC) Anion Gap SerPl-sCnc 14 8-15 mmol/L LAB 19842-9(LOINC) eGFRcr SerPlBld CKD-EPI 2020 11 Low >=60 mL/min/1. 73m??? Result Comment: Estimated Gl omerular Filtration Rate (eGFR) is calculated using the 2020 CKD-EPI creatinine equation. This equation utilizes serum creatinine, sex, and age as parameters. The creatinine assay has traceable calibration to isotope dilution-mass spectrometry. Refer to KDIGO guidelines for clinical interpretation. In patients with unstable renal function, e.g. those with acute kidney injury, the eGFR may not accurately reflect actual GFR. Performed By: #### [id number] # ### [facility] CLIA [id number] [address] [place] [address] STATES OF [facility] PT PNL PPP Collected: 05/19/2025 6:27 PM Status: F Source: [facility] Order Comment: Specimen Type : BLOOD SPECIMEN Ordering Facility: [facility] Address: [address] [place] [address] TYPE CODE TESTS RESULT OUT OF RANGE REFERENCE UNITS LAB 5902-2(LOINC) Prothrombin time 22.4 High 9.7-13.0 sec LAB 6301-6(LOINC) INR PPP 2.2 High 0.9-1.3 Result Comment: Vitamin K An tagonist (VKA) Therapeutic Range: INR 2 to 3 (Target INR of 2.5) Note: For patients treated with VKA drugs, such as warfarin, the [place] [employer] 2012 Guideline recommends a therapeutic INR range of 2 to 3 (target INR of 2.5). This recommendation includes high-risk patients with antiphospholipid syndrome with previous arterial or venous thromboembolism, current-generation mechanical or bioprosthetic aortic heart valve replacement. Note: Patients with mechanical aortic valve replacement and additional risk factors for thromboembolic events (atrial fibrillation, previous thromboembolism, LV dysfunction, hypercoagulable conditions) or an older generation mechanical AVR (i.e., ball in-Cage) or any mechanical MVR should have a INR therapeutic range of 2.5 to 3.5 (target INR of 3). Ranjit GH, et al. Chest 2012, 141:7S-47S Kevin RA, et al. [facility] 2017, 70: 252-289 Performed By: #### [id number] # ### [facility] CLIA [id number] [address] [place], [place] [id number] [place] CBC PNL BLD AUTO Collected: 6:27 PM Status: F Source: [facility] Order Comment: Specimen Type : BLOOD SPECIMEN Ordering Facility: [facility] Address: [address] [place] [id number] TYPE CODE TESTS RESULT OUT OF RANGE REFERENCE UNITS LAB 6690-2(INC) WBC # Bld Auto 6.16 3.70-11.00 k/uL LAB 789-8(LOINC) RBC # Bld Auto 2.60 Low 4.20-6.00 m/uL LAB 718-7(LOINC) Hgb Bld-mCnc 7.5 Low 13.0-17.0 g/dL LAB 4544-3(INC) Hct VFr Bld Auto 24.5 Low 39.0-51.0 % LAB 787-2(INC) MCV RBC Auto 94.2 80.0-100.0 fL LAB 785-6(INC) MCH RBC Qn Auto 28.8 26.0-34.0 pg LAB 786-4(LOINC) MCHC RBC Auto-mCnc 30.6 30.5-36.0 g/dL LAB 20128-9(INC) RDW RBC-Rto 19.9 High 11.5-15.0 % LAB 777-3(INC) Platelet # Bld Auto 202 150-400 k/uL LAB 84998-3(INC) PMV Bld Auto 10.7 9.0-12.7 fL LAB 771-6(LOINC) nRBC # Bld Auto 0.02 High <0.01 k/uL Performed By: #### [id number] # ### [facility] CLIA [id number] [address] [place] [address] [place] PT PNL PPP Collected: 05/19/2025 5:19 PM Status: F Source: [facility] Order Comment: Specimen Type : BLOOD SPECIMEN Ordering Facility: [facility] Address: [address] [place] [id number] TYPE CODE TESTS RESULT OUT OF RANGE REFERENCE UNITS LAB 5902-2(INC) Prothrombin time 23.0 High 9.7-13.0 sec LAB 6301-6(INC) INR PPP 2.2 High 0.9-1.3 Result Comment: Vitamin K An tagonist (VKA) Therapeutic Range: INR 2 to 3 (Target INR of 2.5) Note: For patients treated with VKA drugs, such as warfarin, the [place] [employer] 2012 Guideline recommends a therapeutic INR range of 2 to 3 (target INR of 2.5). This recommendation includes high-risk patients with antiphospholipid syndrome with previous arterial or venous thromboembolism, current-generation mechanical or bioprosthetic aortic heart valve replacement. Note: Patients with mechanical aortic valve replacement and additional risk factors for thromboembolic events (atrial fibrillation, previous thromboembolism, LV dysfunction, hypercoagulable conditions) or an older generation mechanical AVR (i.e., ball in-Cage) or any mechanical MVR should have a INR therapeutic range of 2.5 to 3.5 (target INR of 3). Ranjit GH, et al. Chest 2012, 141:7S-47S Kevin RA, et al. [facility] 2017, 70: 252-289 Performed By: #### 10239-8 # ### [facility] IA [id number] [address] [place] [address] THERAPY NT Observed: 05/19/2025 3:45 PM Status: COMPLETED Source: [facility] HNO ID: [id number] Author: LUCILLE MURPHY PT Service: Physical Therapy Author Type: Bicycle Subassembler Type: Therapy (PT/OT/Speech/Resp) Filed: 05/20/2025 07:19 Note Text: Attestation signed by Lucille Murphy PT at 05/20/2025 7:19 AM I reviewed and agree with the documentation corresponding to this therapy visit. SIGNATURE: Lucille Murphy PT DATE: May 20, 2025 TIME: 7:19 AM Physical Therapy Treatment Summary SERVICE DATE: 05/19/2025 SERVICE TIME: 1512 to 1535 ROOM: [place] [address] PT 6 Clicks Score: 22 DISCHARGE RECOMMENDATIONS Home PT Anticipated Discharge Needs: Physical Assist at Home Physical Assist at Home for: Transfers, Cleaning, Laundry, Meals, Stairs, Safety, Self Care, Shopping, Transportation (+ PRN) ASSESSMENT Pt was able to ambulate safely without the use of an AD. 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 Has been sleeping in recliner 2/2 to pain. (+) driving SUBJECTIVE THERAPY DIAGNOSIS Reduced mobility-other, Muscle Weakness (generalized), General symptoms and signs-other TREATMENT INTERVENTIONS Gait Training (19359), Therapeutic Activity (88292) Timed Code Treatment (minutes): 23 Skilled Treatment Time (minutes): 23 TRAINING AND EDUCATION PROVIDED Assistive Device Use, Bed Mobility, Benefits of In-Hospital Mobility, Role of Physical Therapy, Transfers, Expected Functional Level, Falls Prevention, Gait Pattern, Reduction of Deviations THERAPEUTIC SKILLS USED Cuing Visual, Cuing Verbal, Cuing Tactile, Cues for Sequencing/Proper Technique for Activity, Activity Dosing FUNCTIONAL STATUS Bed Mobility Supine To Sit: Stand By Assistance Scooting: Stand By Assistance Transfers Sit To Stand: Stand By Assistance Stand To Sit: Stand By Assistance Bed to Chair Stand By Assistance Bed To Chair Transfer Type: Stepping Bed To Chair Transfer Equipment: (IV pole) Gait Stand By Assistance Gait Device: None Gait Distance (feet): 25 Stairs GOALS Patient will demonstrate progress with functional mobility to allow safe discharge to home with available support and/or physical assistance. Rehab Potential: Good Progress Toward Goals: Progressing as expected ACUTE CARE TREATMENT PLAN PT Frequency: Per Next Session Date Treatment Interventions: Education, Self Care / Home Management, Energy Conservation Training, Joint Mobility, Strengthening, Functional Mobility Training, Balance Training, Neuromuscular Re-education Plan for Next Visit: Gait Training, Stair Training SIGNATURE: Artie Chi PTA PATIENT NAME: Elia Weston DATE: May 19, 2025 TIME: 3:45 PM PROCEDURE Observed: 05/19/2025 1:30 PM Status: COMPLETED Source: [facility] HN ID: [id number] Author: AB SIEGEL DO Service: Plastic Surgery Author Type: Resident Type: Procedures Filed: 05/19/2025 13:33 Note Text: BEDSIDE PROCEDURE NOTE WOUND REPAIR Date/Start Time: 05/19/2025 9:00 AM Date/Stop Time: 05/19/2025 10:00 AM Performed by: Ab Siegel DO Authorized by: Diego Parker MD Where was Patient When this Procedure was Performed: Bedside/Unscheduled Procedure Room This procedure has been performed in part by a resident/fellow under attending's direction Informed Consent Consent Obtained: Verbal [place] Protocol SIGN IN Sign in communication not applicable due to emergent procedure. Personnel directly involved with the procedure wore the appropriate PPE. Patient/Surrogate Stated/Verified: Patient name, Date of , Relevant allergies and Intended procedure TIME OUT Intended patient and procedure match source documents. Pre-Procedure Details: The area was prepped with alcohol and allowed to dry. A sterile partial body drape was applied following the usual aseptic technique. Medications: Local Anesthesia (see MAR): Lidocaine 1% with 1 to 100,000 epinephrine Procedure Details: Number of Wounds: 1 Wound repair Injury Type: soft tissue ulcer. Measurements: Wound Length (cm): 4 Wound Width (cm): 2 Debridement Layer: subcutaneous tissue Wound Age (days): >14 Irrigation Solution: Normal saline under pressure Foreign Body: No Suture Type: Absorbable Suture Technique: Simple interrupted Number of Sutures: 4 Approximation: Good Post-Procedure Details: Patient Tolerance: Patient tolerated the procedure well with no immediate complications Estimated Blood Loss: mL (comment) (10) SIGN OUT All specimens correctly labeled and sent. All instruments, equipment, possible retained foreign bodies accounted for. SIGNATURE: Ab Siegel DO PATIENT NAME: Elia Weston DATE: May 19, 2025 TIME: 1:30 PM CONSULT PROG Observed: 05/19/2025 11:56 AM Status: COMPLETED Source: [facility] HNO ID: [id number] Author: MYRIAM WARD APRN.FLORAL ASSOCIATE Service: Plastic Surgery Author Type: Nurse Practitioner Type: Consult Progress Note Filed: 05/19/2025 12:19 Note Text: PLASTIC SURGERY CONSULT PROGRESS NOTE SERVICE DATE: 05/19/2025 SERVICE TIME: 0935 INTERVAL HISTORY: HANDH stable, no strike through bleeding on chest and back dressings PHYSICAL EXAM: BP 112/41 Pulse 114 Temp (Src) 98.6 (Oral) Resp 16 Ht 5' 9.685 (1.77m) Wt 255 lb 8.2 oz (115.9kg) SpO2 100% BMI 36.99 kg/(m2). O2 Therapy: Room Air Gen: alert, anxious, oriented x 3 Upper mid back wound dressing removed, approx 3cm x 0.5cm wound full thickness wound + brisk arterial bleed when pressure dressing removed. Right chest full thickness wound at Nipple Areolar Complex and partial thickness wound under breast fold. No active bleeding. No purulent drainage, no surrounding induration Left chest full thickness wound with small amount of adherent eschar, central wound bed with mild yellow/ fibrinous slough. No purulent drainage, no surrounding induration I/Os: Intake/Output Summary (Last 24 hours) at 05/19/2025 1156 Last data filed at 05/18/2025 1915 Gross per 24 hour Intake 200 ml Output 2000 ml Net -1800 ml Output by Drain (mL) 05/17/25 07 - 05/17/25 1459 05/17/25 1500 - 05/17/25 2259 05/17/25 2300 - 05/18/25 0659 05/18/25 07 - 05/18/25 1459 05/18/25 1500 - 05/18/25 2259 05/18/25 2300 - 05/19/25 0659 05/19/25 07 - 05/19/25 1156 Patient has no LDAs of requested type attached. LABS: Diagnostic Tests Reviewed for Today's Visit: CBC Recent Labs 05/18/25 0406 05/17/25 0715 05/16/25 0155 WBC 6.27 5.76 7.00 HB 7.6* 7.4* 7.2* HCT 24.6* 24.0* 24.9* PLT 201 185 198 BMP, Mg, Phos Recent Labs 05/18/25 0130 05/17/25 0715 NA 137 138 K 4.7 5.7* CHLOR 98 99 CO2 25 22 BUN 13 34* CREAT 5.63* 9.50* GLUC 105* 77 CA 7.9* 7.2* MG -- 2.5* Coags Recent Labs 05/18/25 0130 05/17/25 0715 INR 2.9* 3.5* Nutrition Labs Albumin Date Value Ref Range Status 05/18/2025 3.4 (L) 3.9 - 4.9 g/dL Final 05/17/2025 3.6 (L) 3.9 - 4.9 g/dL Final 05/16/2025 3.7 (L) 3.9 - 4.9 g/dL Final CRP Date Value Ref Range Status 04/20/2025 22.1 (H) <0.9 mg/dL Final 10/12/2024 3.4 (H) <0.9 mg/dL Final 09/29/2022 9.3 (H) <0.9 mg/dL Final Impression/Recommendations 45 year old male PMH, significant for ESRD on HD (MWF), CAD s/p CABG, severe MS s/p MVR on Warfarin, pAfib s/p maze procedure and RADHA clip and chronic chest/abdominal/back wounds (3 years) likely secondary to ischemia in context of SVC syndrome and multiple thrombosis, who presented to the ED with 1-day of left chronic chest wound bleeding. Admitted for management of bleeding. Posterior back wound, + brisk bleeding vessel. Hemostasis achieved with suturing -performed at bedside by Plastic Surgery resident. No palpable underlying hematoma. -new pressure dressing applied over area -monitor wound every 1 hour x 4 hours to eval for re-occurent bleeding. R/L chest wall wounds -dressings removed, no s/s of active bleeding. Wounds were cleaned and new dressings applied. -wound care orders updated in Epic. Assessment and plan discussed with staff physician, Dr. Parker. SIGNATURE: Myriam Ward APRN.CNP PATIENT NAME: Elia Weston DATE: May 19, 2025 TIME: 11:56 AM [phone] CONSULT PROG Observed: 05/19/2025 11:38 AM Status: COMPLETED Source: [facility] HNO ID: [id number] Author: KIMBERLY LYNN APRN.CNP Service: Wound Care Team Author Type: Nurse Practitioner Type: Consult Progress Note Filed: 05/19/2025 11:43 Note Text: Wound Care Consult Team Assessment Note: PATIENT NAME: Elia Weston Attempted to see patient to evaluate wounds today at 0900. Patient declined due to plastic surgery planning on coming to evaluate wounds today- called and spoke with Myriam Ward NP from plastics, she stated she was to evaluate the patient's wounds this morning. Given plastics already planning on evaluating wounds today, using shared decision making, patient and WCCT agreed to defer assessment by WCCT today. Will attempt again at a future date. 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 The EP service are now consulted for rhythm management. - Apr: Awaiting YONATHAN. - Apr: Awaiting YONATHAN. ECG with DE continuing to prolong (~450 ms). - 15 Apr: Unable to undergo YONATHAN with conscious sedation (required a lot of sedation to be comfortable resulting in hypotension). - 16 Apr: ECG demonstrates DE ~430 ms - 18 Apr: Discussed EP plan in detail (YONATHAN to assess for IE, if no IE leadless PPM; if IE, multidisciplinary treatment including possible OHS). - Apr: YONATHAN formal read without evidence of endocarditis - Apr: Atropine 0.5mg administered bedside: pre-atropine DE 420ms at HR 93, post-atropine DE 420ms at HR 113 Recommendations: - Notable DE prolongation this admission (~420 ms) as compared to prior (~220 ms in Sep 2024). Initially suspicious for aortic root infection however YONATHAN reassuring - BCX x2 from admission (20 April) negative. - Of note, DE interval did not accommodate with atropine - In the absence of clear IE, will plan to proceed with leadless PPM implant before discharge - Please obtain an US of the left femoral vein for pre-procedure assessment given limited options for access - Please obtain 12-lead ECG daily to reassess DE interval - The EP Consult service shall continue to follow with you Electrophysiology Pre-Procedure Checklist: Procedure: Leadless PPM Important Considerations: L femoral access only (SVC occluded, R femoral not accessible) Indication: Post-op conduction disease Consent: Signed and uploaded to chart Allergies: No allergies relevant to the procedure Vitals: Stable, able to lie flat Signs of infection: None IV Access: Adequate Labs: Cr, coagulation panel, and PLT within acceptable ranges Type and screen: To be updated with AM labs Anticoagulation: Warfarin for AF, monitor INR daily Status: Not Ready, left groin ultrasound Kentrell Bhardwaj MD Cardiac Electrophysiology Fellow PGY-7 Heart,Vascular, and Thoracic [facility] CONSULT PROG Observed: 05/19/2025 11:05 AM Status: COMPLETED Source: [facility] HNO ID: [id number] Author: BOLA GARVIN, PhD Service: Psychology Author Type: Psychologist Type: Consult Progress Note Filed: 05/20/2025 08:47 Note Text: Attestation signed by Bola Garvin, PhD at 05/20/2025 8:47 AM STAFF ATTESTATION This service has been performed by a fellow under the direction of myself as supervising psychologist. I was readily available to furnish assistance and direction throughout the encounter. I agree with the fellow's findings and plan as documented and have discussed the case and management of the patient's care with the fellow. Bola Garvin, Ph.D. Clinical Health Psychologist PSYCHOLOGY BRIEF NOTE ADMISSION DATE: 04/20/2025 ATTENDING PROVIDER: Luis Cui MD PRIMARY CARE PROVIDER: No primary care provider on file. DATE: 05/19/2025 TIME: 11:05AM, 1:20PM Attempted to see patient for follow up psychology visit. On both attempts, patient was seen sleeping and did not awake to his name being called. Psychology will continue to follow as able. SIGNATURE: Janak Landry PsyD PATIENT NAME: Elia Weston DATE: May 19, 2025 TIME: 3:39 PM PSYCHOLOGY PAGER: [phone] PROGRESS Observed: 05/19/2025 8:29 AM Status: COMPLETED Source: [facility] ID: [id number] Author: LUIS CUI MD Service: General Internal Medicine Author Type: Resident Type: Progress Notes Filed: 05/19/2025 21:59 Note Text: Attestation signed by Luis Cui MD at 05/19/2025 9:59 PM TEACHING PHYSICIAN NOTE OF PERSONAL INVOLVEMENT IN CARE I have reviewed the Progress Note obtained and documented by Resident and I personally participated in the mendoza components. I have discussed the case and management of the patient's care with them. The following comments revise or confirm relevant mendoza components of the note. Agree with assessment and plan. Greenhouse Manager:Prolonged Service: I personally spent greater than 30 minutes involved in patient care and coordination of services for this patient Luis Cui MD Authenticated by responsible provider. [facility] MEDICINE PROGRESS NOTE SERVICE DATE: 05/19/2025 SERVICE TIME: 8:29 AM Hospital Medicine/Primary Attending: Luis Cui MD NIGHT AND WEEKEND COVERAGE: [facility] COVERAGE: Nights: [phone], please page Team Jeffrey Haq; overnight/admitting pager [phone] Subjective Chief Complaint: Pain and chronic chest wound bleeding INTERVAL HPI: Mr. 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 Patient was hospitalized in September 2024 to October 2024 for pain and bleeding from the wounds. Patient was seen by dermatology back then for his skin ulcers. Biopsy performed and was most c/w reactive ischemic changes without features of Pyoderma Gangrenosum or Calciphylaxis. Now, plan for venoplasty with IR pending improvement in INR. Dermatology consulted and underwent steroid trial at wound edge. He was bridged to warfarin while here given his history of mechanical valve. Stay further complicated by new bradycardia, found to have Mobitz 1 second-degree AV block for which cardiology/EP was consulted. Overnight Events: Patient had bleeding of his wounds overnight. Pressure bandaging was applied. Bedside: Patient feels okay. Is tired of his wounds bleeding overnight. Vitals: Soft Bps recorded overnight. Current Facility-Administered Medications Medication Dose Route Frequency NaCl 0.9% iv flush bag 20 mL INTRAVENOUS PRN acetaminophen 650 mg tab(s) (TYLENOL) 650 mg ORAL q 6 H PRN aspirin 81 mg chewable tab(s) 81 mg ORAL DAILY midodrine 20 mg tab(s) (PROAMATINE) 20 mg ORAL q 8 H cinacalcet 60 mg tab(s) (SENSIPAR) 60 mg ORAL DAILY sevelamer carbonate 800 mg tab(s) (RENVELA) 800 mg ORAL TID w MEALS polyethylene glycol 3350 17 g packet 17 g ORAL DAILY calcitriol 1.5 mcg cap(s) (ROCALTROL) 1.5 mcg ORAL - LORazepam 0.25 mg tab(s) (ATIVAN) 0.25 mg ORAL DAILY PRN fentaNYL 50 mcg/mL 25 mcg injection (SUBLIMAZE) 25 mcg INTRAVENOUS DAILY PRN warfarin order for discharge OTHER PRN ascorbic acid 500 mg chewable tab(s) 500 mg ORAL DAILY pyridoxine (vitamin B6) 50 mg tab(s) (VITAMIN B6) 50 mg ORAL DAILY vitamin A 10,000 Units cap(s) (AQUASOL A) 10,000 Units ORAL DAILY senna 8.6 mg tab(s) (SENOKOT) 8.6 mg ORAL/FEEDING TUBE BID fentaNYL 50 mcg/mL 50 mcg injection (SUBLIMAZE) 50 mcg INTRAVENOUS DAILY PRN melatonin 3 mg tab(s) 3 mg ORAL/FEEDING TUBE AT BEDTIME PRN Darbepoetin [place] In Polysorbat 60 mcg injection (ARANESP) 60 mcg SUBCUTANEOUS q Wed lidocaine (PF) 10 mg/mL (1 %) 10-100 mg injection (XYLOCAINE) 1-10 mL INTRADERMAL DIRECTED PRN oxyCODONE IR 15 mg tab(s) (ROXICODONE) 15 mg ORAL q 4 H PRN busPIRone 5 mg tab(s) (BUSPAR) 5 mg ORAL DAILY Objective PHYSICAL EXAM: BP 112/41 Pulse 114 Temp (Src) 98.6 (Oral) Resp 16 Ht 5' 9.685 (1.77m) Wt 255 lb 8.2 oz (115.9kg) SpO2 100% BMI 36.99 kg/(m2). O2 Therapy: Room Air Physical Exam Performed GENERAL: Alert, no distress, cooperative SKIN: Right and Left anterior and posterior chest wounds: chronic, bleeding, no purulent discharge. LUNGS: Lungs clear to auscultation, Good diaphragmatic excursion CARDIAC: Normal S1 and S2; no rubs, murmurs, or gallops ABDOMEN: Abdomen soft, non-tender, BS normal, No masses or organomegaly Lines, Drains, and Airways Line Duration Peripheral 04/26/25 2[facility] Right Forearm 20 Gauge 22 days Dialysis / Apheresis Double Lumen 04/29/25 1005 [facility] Tunneled Right Internal Jugular 19 days DATA: Diagnostic tests reviewed for today's visit: Most recent labs Most recent imaging Most recent EKG Labs: Latest Reference Range AND Units 05/16/25 01:55 05/17/25 07:15 05/18/25 01:30 05/18/25 04:06 Sodium 136 - 144 mmol/L 138 138 137 Potassium 3.7 - 5.1 mmol/L 5.2 (H) 5.7 (H) 4.7 Chloride 98 - 107 mmol/L 98 99 98 CO2 22 - 30 mmol/L 24 22 25 BUN 9 - 24 mg/dL 24 34 (H) 13 Creatinine 0.73 - 1.22 mg/dL 7.82 (H) 9.50 (H) 5.63 (H) Glucose 74 - 99 mg/dL 87 77 105 (H) Protein, Total 6.3 - 8.0 g/dL 7.7 7.2 7.1 Calcium 8.5 - 10.2 mg/dL 7.9 (L) 7.2 (L) 7.9 (L) Magnesium 1.7 - 2.3 mg/dL 2.5 (H) Albumin 3.9 - 4.9 g/dL 3.7 (L) 3.6 (L) 3.4 (L) Bilirubin, Total 0.2 - 1.3 mg/dL 0.3 0.3 0.3 Alkaline Phosphatase 38 - 113 U/L 156 (H) 146 (H) 148 (H) ALT 10 - 54 U/L 13 9 (L) 11 AST 14 - 40 U/L 17 17 21 Anion Gap 8 - 15 mmol/L 16 (H) 17 (H) 14 eGFR >=60 mL/min/1.73m? 8 (L) 6 (L) 12 (L) WBC 3.70 - 11.00 k/uL 7.00 5.76 6.27 RBC 4.20 - 6.00 m/uL 2.55 (L) 2.61 (L) 2.64 (L) Hemoglobin 13.0 - 17.0 g/dL 7.2 (L) 7.4 (L) 7.6 (L) Hematocrit 39.0 - 51.0 % 24.9 (L) 24.0 (L) 24.6 (L) Platelet Count 150 - 400 k/uL 198 185 201 MCV 80.0 - 100.0 fL 97.6 92.0 93.2 MCH 26.0 - 34.0 pg 28.2 28.4 28.8 MCHC 30.5 - 36.0 g/dL 28.9 (L) 30.8 30.9 MPV 9.0 - 12.7 fL 11.6 11.2 11.0 RDW-CV 11.5 - 15.0 % 19.7 (H) 20.5 (H) 20.1 (H) Absolute nRBC <0.01 k/uL <0.01 <0.01 <0.01 PT Sec 9.7 - 13.0 sec 26.8 (H) 34.7 (H) 29.1 (H) PT INR 0.9 - 1.3 2.6 (H) 3.5 (H) 2.9 (H) (H): Data is abnormally high (L): Data is abnormally low Transthoracic echocardiogram 05/06/25: EF: 60%, left ventricular hypertrophy, right ventricle normal, trace tricuspid valve regurgitation, trace pulmonic valve regurgitation, no pericardial effusion, aorta normal in size CXR 04/21/25: TDC with tip in RA. Increase of perihilar and basilar opacities with volume loss, suggesting atelectasis, possible underlying edema/inflammation. Blunting of L CP angle, which may represent tiny effusion or pleural thickening. CT A/P 04/22/25: No abdominal or pelvic subcutaneous fluid collection of gas. Redemonstrated diffuse subcutaneous extensive abdominal wall collaterals, similar to prior CTA 10/17/2024. CT chest 04/22/25: extensive chest wall collaterals, few areas of skin ulceration, no areas of drainable fluid collection. Findings consistent with central venous stenoses. Few patchy groundglass opacities, may be related to mild pulm edema YONATHAN 05/18/25: Impression CONCLUSIONS: - Exam indication: ?Endocarditis - The left ventricle is normal in size. There is mild left ventricular hypertrophy. Left ventricular systolic function is normal. EF = 60 ? 5% (visual est.) - The right ventricle is normal in size. Right ventricular systolic function is normal. - The left atrial cavity is dilated. - The right atrial cavity is dilated. - Post mitral valve replacement. On-X prosthetic mitral valve (size #25). - No echocardiographic evidence of endocarditis There is trace (trace - 1+) mitral valve regurgitation. - There is moderate (2+) tricuspid valve regurgitation. - The patient has not had a prior CC echocardiographic exam for comparison. Assessment/Plan Problem List Assessment AND Plan Bleeding from open wound of chest wall, right, initial encounter Secondary hyperparathyroidism, renal (HCC) ESRD on hemodialysis (HCC) History of non-ST elevation myocardial infarction (NSTEMI) Vitamin D deficiency S/P MVR (mitral valve replacement) Supratherapeutic INR Atrial fibrillation (HCC) Acute on chronic blood loss anemia Adjustment disorder with depressed mood Acquired hypothyroidism Acquired stenosis of superior vena cava Venous collateral circulation Status post Maze operation for atrial fibrillation Ulcers, venous (HCC) Wounds, multiple Anemia due to multiple mechanisms Hemorrhage from open wound of left chest wall Open chest wound, right, sequela Open chest wound, left, sequela Back wound, unspecified laterality, sequela Open wound of abdomen Open wound of right thigh Bleeding from wound Difficult intravenous access Hypervolemia Skin ulcers (HCC) Vitamin C deficiency Vitamin A deficiency Vitamin B6 deficiency Second degree AV block, Mobitz type I HOSPITAL COURSE: Elia Weston is a 45 year old male with extensive PMH, significant for ESRD on HD (MWF) last session 04/18 (skipped Friday since he came to ED), CAD s/p CABG, severe MS s/p MVR on Warfarin (goal INR of 2.5-3.5), pAfib s/p maze procedure and RADHA clip and chronic chest/abdominal/back wounds (3 years) likely secondary to ischemia in context of SVC syndrome and multiple thrombosis, who presented to the ED with 1-day of left chronic chest wound bleeding. Admitted for management of bleeding, and on transfer to [facility], patient began to have significant bleeding from R chest wound. Continuous pressure was applied and bleeding stopped. Now s/p FFP and RBC transfusions as appropriate. Initially started on Vanc/Zosyn given elevated ESR/CRP and WBC, no infectious concern on further imaging with improved lactate WBC, so ABx were stopped. Dermatology and wound care consulted. IR consulted, planning for venoplasty given INR reversal. 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 Hx of hemorrhagic shock from bleeding abdominal wounds - presenting with acute worsening of pain and bleeding from wounds. Denies purulent discharge from wounds. - Leukocytosis + Elevated CRP 22.1 and ESR 133 + Elevated lactate on presentation; concerned for infected wounds/soft tissue infection. Started on IV vanc/zosyn, later d/janie due to low infectious concern (04/21-04/25) - On admission, acute rise in lactate in light of acute significant bleeding and drop in HGB (8.6 from 9.5 in ED) likely secondary to hypovolemia, also missed dialysis - CT venogram on 10/19/24 with b/l brachiocephalic stenosis w b/l subclavian vein occlusion, extensive venous collaterals - 10/22/24: Venoplasty completed by IR, removed L femoral TDC, exchanged R TDC - blood cultures 04/20/25 with NG5D x2 - AMET for hypotension 80/50, s/p 500 cc LR bolus, scheduled midodrine with improved repeat 102/63 - lactate 2.4 from 1.7, improved from 3.2 at admission. Completed 5d course of IV vanc/zosyn (04/21-04/25) - CT chest and CT A/P 04/22/25 with no drainable fluid collections, extensive chest collaterals - nutritional workup: B12 elevated, folate wnl, iron low 26, TIBC low 137, trans sat wnl, low vit D 22.9, zinc 69 wnl, low vit A 0.10 - 04/29/25: Venoplasty: completed by IR. 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 Right upper chest tunneled dialysis catheter was exchanged over a wire for a new on; ready for use PLAN: - IR consulted: > venoplasty 04/29/2025 - no complications - Derm consulted: > ongoing nutritional workup > discontinued clobetasol 0.05% ointment BID per derm, lesion over R scapula, try to simulate tx of PG and assess response > [facility] Derm f/u outpatient - continue vitamin D supplement 5000 unit(s), ascorbic acid 500mg/day, vit B6 50mg/day, vit A 10,000 units/day - wound care team consulted, appreciate care - pain control: tylenol 650 mg q6h prn and oxycodone 10 mg po q6h PRN. > IV fent for dressing changes as needed - plastic surgery consulted: > no indication for surgical intervention at this time - Cautious fluid resuscitation in light of acute bleeding and ESRD anuric on HD - Chest wound dressings to be changed every day - Bilateral Upper Extremity doppler 05/12: No evidence of patent arteriovenous fistulas bilaterally - Patient has uncontrolled pain from his chest wounds/bleeding - Updated Oxycodone to 15mg PO q4 PRN - Patient states he does not want Tylenol as it hasn't worked for him in the past - Patient has better pain control today than yesterday after the updated pain management regimen - Plastic surgery consulted due to ongoing wound bleeding overnight - Plastic surgery will reassess patient's wounds with pain optimization - Plastic surgery suggests pain optimization during dressing changes, and more frequent dressing changes, final note pending (05/19/25) #Supratherapeutic INR #CAD s/p CABG #Severe MS s/p mechanical MVR on coumadin #Paroxysmal Afib s/p multiple DCCV s/p Maze procedure + RADHA clip (07/2021) - atrial fibrillation and severe mitral stenosis s/p mechanical mitral valve replacement with On-x valve (INR goal 2.5-3.5), Maze procedure and RADHA clip on 08/21/2021. - Goal INR 2.5- 3.5; on warfarin 2.5 mg daily although patient not sure of dose, has been changed recently; last dose of warfarin Thursday 04/19 - INR elevated to 5.1 on admission, improved to 3.9 s/p 2u FFP 04/21 - possible etiology of supratherapeutic INR: warfarin dose (given patient not sure of home dose) vs malnutrition vs liver disease (less likely given AST/ALT wnl) - INR elevated again to 5.3, patient received po vitamin K 5 mg 04/25. Improved to 1.7 - INR 3.3 on 05/08 - INR of 5.2 on 05/10/25. Warfarin held. PLAN: - given subtherapeutic INR and no intervention by plastic surgery planned, continue bridging to warfarin > goal INR 2.5 - 3.5, given mechanical valve. - Heparin discontinued 05/07 - Daily INR - Follows with Dr. Moreno (cardiology in [place]) for mgmt of Coumadin, will need follow-up outpatient - 1mg Vitamin K IV given to reverse Warfarin, in view of undergoing YONATHAN, with YONATHAN lab protocol of INR<4. - INR 05/11/25: 2.0, 3 mg Warfarin given. - INR 2.1 05/12/2025 warfarin increased to 3.5 - INR: 2.3 05/13/25, warfarin 3 mg ordered - Spoke to patient for considering Heparin GTT inpatient, however, patient refuses - INR 2.6 on 05/15/25: Last dose of warfarin given: 3mg on 05/13/25. 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) - INR from 05/15/2025: 2.6 - 3mg Warfarin ordered PO 05/15/25 - INR 2.6 on 05/16/2025, repeat 3 mg warfarin PO - INR 3.5 on 05/17/25, half dose warfarin PO: 2mg on 05/17/25 - INR 2.9 on 05/18/25, will give 2mg on 05/18/25 - INR pending on 05/19/25 # Second-degree AV Block, Mobitz Type I - Patient having multiple episodes of bradycardia in the hospital with low blood pressures - Magnesium level 2.2 (05/05/25) - EKG (05/05/25) shows Second degree AV block, mobitz type 1 - EKG (05/06/25): shows sinus rhythm with 2nd degree AV shantell, mobitz type 1 - Transthoracic echocardiogram 05/06/25: EF: 60%, left ventricular hypertrophy, right ventricle normal, trace tricuspid valve regurgitation, trace pulmonic valve regurgitation, no pericardial effusion, aorta normal in size PLAN: - Cardiology team consulted, appreciate recs - Echocardiogram completed, results as above - Cardiology suggest EP consult given risk of progression of 2nd degree AVB, type 1 to higher degree AVB - EP consult on 05/09/25: Consult in process, signed note pending - EP Consult on 05/09/25 Recommendations: -Suggest YONATHAN to assess for possible endocarditis or other pathology - No current pacemaker indications, however, further investigation warranted due to rapid progression since Sep 2024. - YONATHAN ordered, NPO midnight - Patient was scheduled for YONATHAN on 05/13/25, however, due to hypotension during sedation attempt it was terminated. Plan to schedule YONATHAN with General Anesthesia, per Cardiology, earliest date is Friday05/17/25. - Patient scheduled for YONATHAN for 05/18/25, NPO midnight - Patient has daily EKGs and Telemetry to monitor as of 05/16/25 - YONATHAN 05/19/25: No vegetations see, 1+ MR and 2+ TR seen - No acute infection or structural deficits on YONATHAN, plan is to insert leadless pacemaker per EP team (05/19/25), patient agrees #Constipation - Last recorded bowel movement was on 05/14/25 PLAN: - Polyethylene glycol daily - Start Senna BID #ESRD on HD via Right TDC #Chronic Hypotension #Secondary 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 - iHD at [facility] through R. Tunneled HD catheter MWF - Last dialysis session Friday04/18/2025; missed Fri session because he presented to [facility] ED - anuric at baseline per patient - Serum P=9.7 - completed HD 04/21, now on MWF - PTH elevated 578, Ca 8.3 low PLAN: - nephrology consulted: > continue MWF HD schedule > continue calcitriol MWF - Continue Sensipar, renvela with meals - continue home Midodrine 20mg every 8 hours - Dialysis today on 05/17/25 due to missed dose on 05/16/25 #Anemia of Chronic Disease/ESRD - Baseline hemoglobin 9-11 - iron studies 12/2024: iron 33, TIBC 156, Iron sat 21, ferritin 1327 - Hgb dropping iso bleeding wounds, as above. - received 1u pRBC 04/21, Hgb from 7.3 -> 7.7 post-transfusion - Hgb 6.9 on 04/22, s/p additional 2u pRBC with Hgb in ~8s PLAN: - Hgb goal >8, 8.4 (05/08/25). - chronic wound mgmt, as above - Iron levels of 36, TIBC- WNL, Ferritin high at 996 on 05/08/25, Replete Iron levels for ANABELLA, per Nephrology recommendation, however due to concerns for ongoing possible endocarditis, we will refrain from IV Iron use until further workup. #Code status - Full # Diet - renal # VTE PPx - warfarin # Dispo Planning - Pending clinical course, SW consulted for recent unemployment, c/f food insecurity #Adjustment disorder? #Low mood - Psychology consulted 05/10/25 - Music therapy - Art therapy - Healing services - Aroma therapy, spiritual services, and brief inpatient psychotherapy ordered per Psychology's recommendation, 05/11/25. Medication and Non-Pharmacologic VTE Prophylaxis/Anticoagulants Anticoagulant AND Antiplatelet Medications (From admission, onward) Start Dose Route Frequency Last Action Ordered Stop 04/21/25 0900 aspirin 81 mg chewable tab(s) 81 mg PO DAILY Given, 05/18 1143 04/21/25 0316 -- 04/10/25 1015 activity - mobilize [place] ([place]) 04/04/25 0900 graduated compression stockings ([place] VTE Prophylaxis: VTE prophylaxis appropriate Disposition: To be determined Plan of care discussed with Provider, RN, Patient Plan communicated to: Family Dae Miner MD PGY-1 [place], [phone] My Pager ALLIED HEALTH Observed: 05/18/2025 4:05 PM Status: COMPLETED Source: [facility] HNO ID: [id number] Author: SHANNON HOOD Music Therapist Service: Music Therapy Author Type: Therapist Type: Allied Health Filed: 05/18/2025 16:06 Note Text: MUSIC THERAPY NOTE SERVICE DATE: 05/18/2025 SERVICE TIME: 2:25 PM Referred By: Other: See Comment (resident/fellow) Reason for Referral: Coping Skills, Anxiety COMMENTS: Will Continue to Follow Music therapy visit attempted this PM x2. At first attempt, pt was sleeping soundly in chair and did not wake to name; left missed contact card on his table. On second attempt (3:10 PM), pt was being wheeled out of room for dialysis. Briefly spoke to pt and apologized for missing each other this week. Will continue to follow. SIGNATURE: Shannon Hood Music Therapist PATIENT NAME: Elia Weston DATE: May 18, 2025 TIME: 4:05 PM PAGER/CONTACT #: [phone] PLAN OF CARE Observed: 05/18/2025 2:04 PM Status: COMPLETED Source: [facility] HNO ID: [id number] Author: MYRIAM WARD APRN.CNP Service: Plastic Surgery Author Type: Nurse Practitioner Type: Plan of Care Filed: 05/18/2025 14:06 Note Text: Plastic Surgery Plan of Care Note Pt evaluated at bedside. Chest pressure dressing intact, no strike through bleeding. HANDH stable. Pt just returned from YONATHAN and will be receiving dialysis this afternoon. Will perform dressing change at bedside tomorrow AM. Patient updated and in agreement with plan of care. Myriam Ward APRN.FLORAL ASSOCIATE May 18, 2025 2:06 PM ANES POSTPROC EVAL Observed: 05/18/2025 1:11 PM Status: COMPLETED Source: [facility] HNO ID: [id number] Author: MOHAMUD SANCHEZ MD Service: ? Author Type: Anesthesiologist Type: Anesthesia Postprocedure Evaluation Filed: 05/18/2025 13:11 Note Text: POST ANESTHESIA EVALUATION NOTE : 1980 Procedure Summary Date: 05/18/25 Room / Location: Cardiology Anesthesia Start: 950 Anesthesia Stop: 1030 Procedure: IP TRANSESOPHAGEAL ECHO Diagnosis: Scheduled Providers: Responsible Provider: Mohamud Sanchez MD Anesthesia Type: MAC ASA Status: 3 Anesthesia Type: MAC Last Vitals Vitals Value Taken Time BP 88/49 05/18/25 10:50 Temp See rn note 05/18/25 13:11 Pulse 91 05/18/25 10:50 Resp 16 05/18/25 10:50 SpO2 98 % 05/18/25 10:50 Post Anesthesia Patient Status Patient Evaluation: PACU. PACU/ICU Patient Condition: stable. Anticipated Disposition: inpatient floor planned admission. Neurological Status: aware and responsive. Pulmonary Status: breathing comfortably on room air Airway Control: returned to baseline unsupported. Cardiovascular Status: stable. Pain Management: clinically adequate - multimodal analgesia pain management approach Postoperative Hydration: acceptable. Intraoperative Events: no significant anesthesia events Post Operative Nausea/Vomiting Status: no significant post operative nausea or vomiting Recommendation: continue current plan of care. Anesthesia Observations No Documentation SIGNATURE: Mohamud Sanchez MD PATIENT NAME: Elia Weston DATE: May 18, 2025 TIME: 1:11 PM CSN: [id number] NUTRITION Observed: 05/18/2025 12:30 PM Status: COMPLETED Source: [facility] HNO ID: [id number] Author: ADIEL MCKINLEY DTR Service: Nutrition Therapy Author Type: Tractor Driver Teamster Type: Nutrition Filed: 05/18/2025 12:43 Note Text: NUTRITION THERAPY CLERICAL ORDER FILLER NOTE SERVICE DATE: 05/18/2025 SERVICE TIME: 1230 Visit Type: Follow-Up Evaluation Goals Met: Not Met Not meeting needs due to frequently NPO however the patient reports good appetite and eating well when able. Plan of Care: Supplements: Boost Glucose Control Follow-Up: Tech Reassessment Nursing Admission Assessment Malnutrition Score: 0 Nutrition Intake: Diet Orders (From admission, onward) Start Ordered 05/18/25 1130 DIET RENAL START NOW Question: Renal Answer: 2400 MG K / 2400 MG NA 05/18/25 1127 05/11/25 1130 DIET SUPPLEMENTS START NOW Question Answer Comment Supplement 1 (19 years and up) BOOST GLUCOSE CONTROL CHOCOLATE Supplement 1 Frequency BREAKFAST 05/11/25 1125 05/03/25 1515 SUPPLEMENT/SNACK PROVIDED START NOW Question Answer Comment Supplement 1 (19 years and up) BOOST GLUCOSE CONTROL CHOCOLATE Supplement 1 Frequency BREAKFAST 05/03/25 1509 Average Daily Calorie Intake (kcal): 1079 kcal Average Daily Protein Intake (gm): 60 gm Average intake over: (Missing intakes per epic due to patient frequently NPO status.) Average Supplement Intake (kcal): 190 kcal Average Supplement Intake (gm): 16 gm Average supplement intake over: 3 days Appetite: Good GI Symptoms: None Anthropometrics: Body mass index is 36.99 kg/m?. Weight Change: Increased Food Preferences: Adjusted supplement from breakfast to dinner per patient request. Allergies: No food allergy MNT Billing: $ Routine Care : 1 unit SIGNATURE: Adiel Mckinley DTR PATIENT NAME: Elia Weston DATE: May 18, 2025 TIME: 12:42 PM CONSULT PROG Observed: 05/18/2025 11:21 AM Status: COMPLETED Source: [facility] HNO ID: [id number] Author: VICKIE DURHAM APRN.FLORAL ASSOCIATE Service: Nephrology Author Type: Nurse Practitioner Type: Consult Progress Note Filed: 05/18/2025 17:07 Note Text: Department of Kidney Medicine Medical Specialties [place] [facility] NEPHROLOGY CONSULT SERVICE PROGRESS NOTE INTERVAL HISTORY: -No acute events overnight noted requiring immediate intervention Patient seen on IHD. S/p YONATHAN today - Orders confirmed and documented in LEONEL - 3 K bath, UF Goal of 2-3 L, in a 3 hr treatment Treatment time reduced due to pt being in procedure all day -Patient tolerating dialysis well -Denies any chest pain, shortness of breath or dizziness -Denies any nausea, vomiting, muscle aches or headaches Admission weight: 115.6 kg (254 lb 13.6 oz) (Pt refusing to get on scale, states this was his last weight from dialysis on friday) Last recorded weight: 115.9 kg (255 lb 8.2 oz) MEDICATIONS: Current Facility-Administered Medications Medication Dose Route Frequency NaCl 0.9% iv flush bag 20 mL INTRAVENOUS PRN acetaminophen 650 mg tab(s) (TYLENOL) 650 mg ORAL q 6 H PRN aspirin 81 mg chewable tab(s) 81 mg ORAL DAILY midodrine 20 mg tab(s) (PROAMATINE) 20 mg ORAL q 8 H cinacalcet 60 mg tab(s) (SENSIPAR) 60 mg ORAL DAILY sevelamer carbonate 800 mg tab(s) (RENVELA) 800 mg ORAL TID w MEALS polyethylene glycol 3350 17 g packet 17 g ORAL DAILY calcitriol 1.5 mcg cap(s) (ROCALTROL) 1.5 mcg ORAL - LORazepam 0.25 mg tab(s) (ATIVAN) 0.25 mg ORAL DAILY PRN fentaNYL 50 mcg/mL 25 mcg injection (SUBLIMAZE) 25 mcg INTRAVENOUS DAILY PRN warfarin order for discharge OTHER PRN ascorbic acid 500 mg chewable tab(s) 500 mg ORAL DAILY pyridoxine (vitamin B6) 50 mg tab(s) (VITAMIN B6) 50 mg ORAL DAILY vitamin A 10,000 Units cap(s) (AQUASOL A) 10,000 Units ORAL DAILY senna 8.6 mg tab(s) (SENOKOT) 8.6 mg ORAL/FEEDING TUBE BID fentaNYL 50 mcg/mL 50 mcg injection (SUBLIMAZE) 50 mcg INTRAVENOUS DAILY PRN melatonin 3 mg tab(s) 3 mg ORAL/FEEDING TUBE AT BEDTIME PRN Darbepoetin [place] In Polysorbat 60 mcg injection (ARANESP) 60 mcg SUBCUTANEOUS q Wed lidocaine (PF) 10 mg/mL (1 %) 10-100 mg injection (XYLOCAINE) 1-10 mL INTRADERMAL DIRECTED PRN oxyCODONE IR 15 mg tab(s) (ROXICODONE) 15 mg ORAL q 4 H PRN busPIRone 5 mg tab(s) (BUSPAR) 5 mg ORAL DAILY warfarin 2 mg tab(s) (COUMADIN) 2 mg ORAL/FEEDING TUBE ONCE - WARFARIN ALLERGIES: Gabapentin and Trazodone VITAL SIGNS: BP (!) 126/48 Pulse 95 Temp 37 ?C (98.6 ?F) (Oral) Resp 16 Ht 177 cm (5' 9.69) Wt 115.9 kg (255 lb 8.2 oz) SpO2 100% BMI 36.99 kg/m? PHYSICAL EXAM: GENERAL: sleeping but awakens to voice, cooperative, lying in bed SKIN: Skin color, texture, turgor normal. No rashes or lesions. HEENT: normocephalic, moist oral mucosa NECK: no JVD, masses or bruits LUNGS: Good diaphragmatic excursion and normal respiratory effort. CARDIAC: RRR ABDOMEN: soft, EXTREMITIES: BLE edema significant NEURO: AOx3, normal speech, muscle strength grossly intact ACCESS: RIJ TDC accessed with normal findings Lines, Drains, and Airways Line Duration Peripheral 04/26/25 2100 [facility] Right Forearm 20 Gauge 21 days Dialysis / Apheresis Double Lumen 04/29/25 1005 [facility] Tunneled Right Internal Jugular 19 days Labs: Recent Labs 05/18/25 0406 05/18/25 0130 05/17/25 0715 05/16/25 0155 WBC 6.27 -- 5.76 7.00 HB 7.6* -- 7.4* 7.2* HCT 24.6* -- 24.0* 24.9* PLT 201 -- 185 198 INR -- 2.9* 3.5* 2.6* NA -- 137 138 138 K -- 4.7 5.7* 5.2* CHLOR -- 98 99 98 CO2 -- 25 22 24 ANION -- 14 17* 16* BUN -- 13 34* 24 CREAT -- 5.63* 9.50* 7.82* GLUC -- 105* 77 87 CA -- 7.9* 7.2* 7.9* MG -- -- 2.5* -- Recent Labs 05/18/25 0130 05/17/25 0715 05/16/25 0155 TPROT 7.1 7.2 7.7 ALB 3.4* 3.6* 3.7* ALT 11 9* 13 AST 21 17 17 ALKPHOS 148* 146* 156* TBILI 0.3 0.3 0.3 ASSESSMENT: Mr. Weston is a 45 year old male with PMH significant for ESRD on IHD, HTN, SVC syndrome and brachiocephalic chronic occlusive disease c/b chronic chest wall and abdominal varices + venous wounds, chronic pain, jugular vein occlusion, p-AFIB, blind left eye, expressive dysphasia, endocarditis, NSTEMI, HFpEF, Mitral 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, MO, PE, CVA, CHB, colitis, Adjustment Disorder With Depressed Mood, MSSA bacteremia, Proximal Colon Ulcer, Hypothyroidism, Intra-Abdominal Varices, , S/P MAZE procedure, skin ulcers, GERD, YEIMY, DVTs Patient presented to [facility] on 04/20/25 with chief complaint of bloody wound drainage of his chronic Right chest wound and back wounds. Labs on presentation significant for elevated lactic acid, leukocytosis, anemia and supratherapeutic INR. Of note, his previous admission 10/12/2024-11/02/2024 was also for pain and bleeding of the wounds/skin ulcers. Biopsy was consistent with reactive ischemic changes at the time without features of Polyderma Gangrenosum or calciphylaxis. Patient was admitted under general internal medicine team for further management. Course c/b new 2nd degree AV shantell, mobitz type 1 - Plan for YONATHAN -05/18-YONATHAN Nephrology consulted for ESRD management. 1.ESRD -Etiology: HTN Renal Biopsy 2005 for renal failure of undetermined etiology. 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 using an angioplasty balloon per IR 2.Electrolytes/acid-base: -Potassium - stable will regulate with DRYWALL SANDER -modulating with DRYWALL SANDER 3.Hypertension/Volume Status: -BP 126/48 -hypervolemia on exam significant -Midodrine 20mg q8h -Pre-weight: 115kg EDW: 120 Kg -Targeting 2.5 L UF with crit line assist 4.Anemia of CKD: -Hgb below ESRD goal -Iron Stores 05/08: ferritin 996 TSAT 15.4- deferring IV iron with IE work up -ANABELLA: Weekly Aranesp 5.Secondary renal hyperparathyroidism: -Calcitriol 1.5mcg TIW, Sensipar 60mg daily, Revela 800mg TID with meals PLAN: -IHD today 3 K bath, UF Goal of 2.5 L, in a 3 hr treatment, flushes due to avoiding heparin , -Next IHD- will check for tomorrow -EDW 114kg -Weekly Aranesp -continue Calcitriol, Sensipar and Renvela Standard ESRD recommendations and precautions: - Strict IANDOs and Daily weight - Consider a RENAL Diet for HD patients - Fluid restriction < 1 L - Start Nephrocap or other renal multivitamin to replace water-soluble vitamins lost during dialysis - Avoid Lovenox, Gadolinium (MRI contrast), Demerol, Morphine, K-containing IVF, Mg- or Phos- containing enemas -Dose meds eGFR<10 Outpatient dialysis disposition plan: contact [phone] and ask to speak with the director of front office as needed for assistance with post-discharge arrangements. Please DO NOT schedule patient for a nephrology follow up appointment. Kidney care will be provided by the primary data warehousing engineer at their dialysis unit upon hospital discharge. Vickie Durham APRN.[facility] Nephrology and Hypertension [facility] May 18, 2025 5:06 PM PAGER # [phone] Disclosures: Parts of the current progress note may have been copied from a previous note. FOR AFTER HOUR CONCERNS BETWEEN 5PM - 7AM CONTACT ON-CALL NEPHROLOGY FELLOW [phone] [address] PRE-OP Observed: 05/18/2025 9:54 AM Status: COMPLETED Source: [facility] HNO ID: [id number] Author: MOHAMUD SANCHEZ MD Service: ? Author Type: Anesthesiologist Type: Anesthesia Preprocedure Evaluation Filed: 05/18/2025 09:55 Note Text: ANESTHESIOLOGY DAY OF SURGERY NOTE : 1980 Procedure Information Date/Time: 05/18/25 0930 Procedure: IP TRANSESOPHAGEAL ECHO Location: Cardiology Estimated body mass index is 36.99 kg/m? as calculated from the following: Height as of 05/12/25: 177 cm (5' 9.69). Weight as of 05/12/25: 115.9 kg (255 lb 8.2 oz). Most recent hematocrit and potassium results: Hematocrit 24.6 05/18/2025 Hematocrit (POCT) 28 06/29/2023 Potassium 4.7 05/18/2025 Potassium (POCT) 6.4 06/29/2023 Relevant Problems ANESTHESIA (+) YEIMY (obstructive sleep apnea) CARDIO (+) A-V fistula (+) Acquired stenosis of superior vena cava (+) Arteriovenous graft stenosis, sequela (+) Atrial fibrillation (HCC) (+) CHB (complete heart block) (HCC) (+) Clotted renal dialysis AV graft (+) Essential hypertension, benign (+) HTN (hypertension) (+) Intra-abdominal varices (+) Jugular vein occlusion, bilateral (HCC) (+) Myocardial infarction (HCC) (+) PAF (paroxysmal atrial fibrillation) (HCC) (+) Paroxysmal atrial flutter (HCC) (+) Pulmonary embolism (HCC) (+) Second degree AV block, Mobitz type I (+) Stenosis of other vascular prosthetic devices, implants and grafts, initial encounter (+) 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 of procedure (+) Unspecified atherosclerosis of [place] arteries of extremities, right leg (+) Venous collateral circulation ENDO (+) Acquired hypothyroidism (+) Hypothyroidism GI (+) Gastroesophageal reflux disease without esophagitis -RENAL (+) Anemia due to chronic kidney disease, on chronic dialysis (HCC) (+) Anemia of renal disease (+) Dialysis patient (+) ESRD (end stage renal disease) (HCC) (+) ESRD (end stage renal disease) on dialysis (HCC) (+) ESRD on hemodialysis (HCC) (+) Renal osteodystrophy PULMONARY (+) YEIMY (obstructive sleep apnea) I - PHYSICAL EVALUATION AIRWAY Patient intubated: No. Tracheostomy tube not present Mallampati: IV. TM distance: >3 FB. Neck ROM: full ROM without neurological symptoms. Mouth opening: adequate. Short neck: no. Thick neck: no [place] present: no Microretrognathia/Micronagthia/Recessed Chin: No DENTAL Normal dental observations. Dental findings: missing tooth/teeth, poor dentition, broken tooth, chipped and edentulous. Additional exam findings: yes. CARDIOVASCULAR Rhythm: regular Rate: normal Peripheral edema: peripheral edema present. Weak pulses: weak pulses present. PULMONARY Additional comments: Normal rate and rhythm, no accessory muscle usage Right chest wall wound with extensive bandage. II - ANESTHESIA PLAN ASA Score: 3 Anesthetic Plan: MAC The patient is not a current smoker. NPO Status: adequate Beta Zbigniew Administration of chronic beta zbigniew medication not planned. Monitoring Plan Monitoring plan: Standard ASA. Post Procedure Analgesic Plan Postoperative analgesic plan: parenteral or oral opioids and multimodal analgesia. Informed Consent Anesthetic risks, benefits, alternatives, personnel and consent discussed: yes. Patient / Responsible Democrat agrees to proceed: yes Patient / Surrogate agrees to blood products: blood products not planned DNR status not reviewed with patient and/or family prior to surgery. Significant changes in the patient condition since the History and Physical, not otherwise documented in primary service progress note: no. Potential Anesthesia issues that may suggest increased risk of complications or contraindication to planned procedure: none. Discussed the possibility of lip / dental damage: yes Vitals Value Taken Time BP 95/52 05/18/25 09:51 Pulse 100 05/18/25 09:52 Resp Temp 36.6 ?C (97.8 ?F) 05/18/25 09:02 SpO2 100 % 05/18/25 09:52 Facility-Administered Medications as of 05/18/2025 Medication Dose Route Frequency warfarin 2 mg tab(s) (COUMADIN) 2 mg ORAL/FEEDING TUBE ONCE - WARFARIN busPIRone 5 mg tab(s) (BUSPAR) 5 mg ORAL DAILY oxyCODONE IR 15 mg tab(s) (ROXICODONE) 15 mg ORAL q 4 H PRN lidocaine (PF) 10 mg/mL (1 %) 10-100 mg injection (XYLOCAINE) 1-10 mL INTRADERMAL DIRECTED PRN melatonin 3 mg tab(s) 3 mg ORAL/FEEDING TUBE AT BEDTIME PRN Darbepoetin Osito In Polysorbat 60 mcg injection (ARANESP) 60 mcg SUBCUTANEOUS q Wed senna 8.6 mg tab(s) (SENOKOT) 8.6 mg ORAL/FEEDING TUBE BID fentaNYL 50 mcg/mL 50 mcg injection (SUBLIMAZE) 50 mcg INTRAVENOUS DAILY PRN vitamin A 10,000 Units cap(s) (AQUASOL A) 10,000 Units ORAL DAILY warfarin order for discharge OTHER PRN ascorbic acid 500 mg chewable tab(s) 500 mg ORAL DAILY pyridoxine (vitamin B6) 50 mg tab(s) (VITAMIN B6) 50 mg ORAL DAILY fentaNYL 50 mcg/mL 25 mcg injection (SUBLIMAZE) 25 mcg INTRAVENOUS DAILY PRN LORazepam 0.25 mg tab(s) (ATIVAN) 0.25 mg ORAL DAILY PRN polyethylene glycol 3350 17 g packet 17 g ORAL DAILY calcitriol 1.5 mcg cap(s) (ROCALTROL) 1.5 mcg ORAL MO-WE- acetaminophen 650 mg tab(s) (TYLENOL) 650 mg ORAL q 6 H PRN aspirin 81 mg chewable tab(s) 81 mg ORAL DAILY midodrine 20 mg tab(s) (PROAMATINE) 20 mg ORAL q 8 H cinacalcet 60 mg tab(s) (SENSIPAR) 60 mg ORAL DAILY sevelamer carbonate 800 mg tab(s) (RENVELA) 800 mg ORAL TID w MEALS NaCl 0.9% iv flush bag 20 mL INTRAVENOUS PRN No current outpatient medications on file as of 05/18/2025. I have interviewed and examined the patient. I have reviewed the medical record and/or the pre-anesthesia evaluation, pertinent labs, and test results. This contains updated information obtained within 48 hours of Surgery/Procedure. SIGNATURE: Mohamud Sanchez MD PATIENT NAME: Elia Weston DATE: May 18, 2025 TIME: 9:54 AM CSN: [id number] ECHO TRANSESOPHAGEAL Observed: 9:45 AM Status: F Source: [facility] Echocardiography Report: Tra nsesophageal Echo Main [place] Bedside Date of service: 05/18/2025 9:45:44 AM TENDER Ordering physician: LUIS CUI Exam indication: ?Endocarditis Technologist: fellow Fellow: Tod Reyes MD Interpreting physician: Yue Scherer MD PATIENT: Name: ELIA WESTON : 1980 Age: 45 years Gender: M Pre Post Heart rate 91 bpm 107 bpm Blood pressure 119/50 mmHg 88/49 mmHg O2 saturation 98 % 95 % Color Doppler was utilized to interrogate the cardiac valves assessed and spectral Doppler was utilized to determine the flow velocities and pressure gradients reported in this exam. Exam performed under general [id number] min. (Stop Time: 10:10) No specimens collected. No blood loss. The interpreting physician was present for and actively participated in the YONATHAN procedure. MEASUREMENTS: Value Normal Ejection Fraction 60 % (visual est.) EF > 52 FINDINGS: LEFT VENTRICLE The left ventricle is normal in size. There is mild left ventricular hypertrophy. Left ventricular systolic function is normal. RIGHT VENTRICLE The right ventricle is normal in size. Right ventricular systolic function is normal. Estimated right ventricular systolic pressure is 16 mmHg plus right atrial pressure. Estimated right atrial pressure is not included as the IVC was not seen. LEFT ATRIUM The left atrial cavity is dilated. RIGHT ATRIUM The right atrial cavity is dilated. MITRAL VALVE Post mitral valve replacement. On-X prosthetic valve size #25. There is trace (trace - 1+) mitral valve regurgitation. 3D echocardiographic multi-planar reconstruction of the mitral valve was performed to assess anatomy and function. TRICUSPID VALVE There is moderate (2+) tricuspid valve regurgitation. AORTIC VALVE There is no aortic valve stenosis. There is no aortic valve regurgitation. Tricuspid aortic valve. There is mild thickening. There is mild calcification. PULMONIC VALVE AORTA There is mild diffuse atheroma in the proximal descending isthmus. PERICARDIUM There is no pericardial effusion. CONCLUSIONS: - Exam indication: ?Endocarditis - The left ventricle is normal in size. There is mild left ventricular hypertrophy. Left ventricular systolic function is normal. EF = 60 5% (visual est.) - The right ventricle is normal in size. Right ventricular systolic function is normal. - The left atrial cavity is dilated. - The right atrial cavity is dilated. - Post mitral valve replacement. On-X prosthetic mitral valve (size #25). - No echocardiographic evidence of endocarditis There is trace (trace - 1+) mitral valve regurgitation. - There is moderate (2+) tricuspid valve regurgitation. - The patient has not had a prior CC echocardiographic exam for comparison. * * * Final * * * [facility] [employer] [facility] Image : [id number] Observed: 05/18/2025 9:30 AM Status: COMPLETED Source: [facility] Office Visit (CAFLMN) ELIA WESTON ([id number]) 1980 M [facility] Date Time Provider Department 05/18/25 9:30 AM IP TRANSESOPHAGEAL ECHO CAFN During your visit today, we recorded the following information about you: Temperature Pulse Respiration Blood pressure 97.8 degrees 91/minute 16/minute 88/49 Felipa Ferrara, RACHEL 05/18/2025 10:59 AM Signed ..AMBULATORY PATIENT EDUCATION TOPIC: YONATHAN READINESS TO LEARN COGNITIVE ABILITY: Alert and oriented MOTIVATION TO LEARN: Eager FAMILY SUPPORT: Unable to assess - Family not present INSTRUCTION PROVIDED TO: Patient PATIENT LEARNS BEST BY: Individual Instruction Verbal Instruction FACTORS AFFECTING LEARNING: None PHYSICAL LIMITATIONS AFFECTING LEARNING: None LEARNING RESPONSE DIAGNOSIS: r/o endo METHOD OF INSTRUCTION: Individual instruction PATIENT / FAMILY RESPONSE: Verbalizes understanding of: POST-PROCEDURE INSTRUCTIONS-Correct actions to take to reduce post procedure complications PRE-PROCEDURE INSTRUCTIONS-Correct action to take to follow pre-procedure instructions FOLLOW-UP PLAN: Complete - No need for follow-up SUPPLEMENTAL MATERIAL: None REFERRAL (RECOMMENDATION): None Electronically Signed By Felipa Ferrara RN In Department: CARDIOLOGY Referring Provider: SANA MIR [[id number]] Allergies As of Date: 05/18/2025 Noted Allergy Reaction GABAPENTIN 08/09/2021 16 - Unknown 14 - Other: See Comments TRAZODONE 10/11/2024 14 - Other: See Comments Comments: Fidgety Date Reviewed: 05/18/2025 Reviewed by: Radha Peterson RN - Fully Assessed Primary Visit Diagnosis:S/P transesophageal echocardiogram (YONATHAN) [Z98.890] Prescriptions as of 05/18/2025 - aspirin 81 mg chewable tablet Take 81 mg by mouth. - cinacalcet (SENSIPAR) 60 mg tablet Take 1 tablet by mouth once daily. - melatonin 3 mg tablet Take 3 tablets by mouth daily at bedtime. - warfarin (COUMADIN) 2.5 mg tablet Take 1 tablet by mouth once daily. - calcitriol (ROCALTROL) 0.5 mcg capsule Take 3 capsules by mouth every Friday, Friday, and Friday. - Darbepoetin Osito In Polysorbat (ARANESP) 60 mcg/0.3 mL syrg Inject 0.3 mL subcutaneously every Friday. - sevelamer carbonate (RENVELA) 800 mg tablet Take 3 tablets by mouth three times a day with meals. - polyethylene glycol 3350 (MIRALAX) 17 gram packet Take 1 Packet by mouth once daily. Dissolve dose in 4 - 8 ounces of liquid and take as directed. - oxyCODONE IR (ROXICODONE) 10 mg tab Take 10 mg by mouth every 8 hours as needed for pain. - B Complex-Vitamin C-Folic Acid (JOHNSON-BRENDA) 0.8 mg tab Take 1 tablet by mouth once daily. - midodrine (PROAMATINE) 10 mg tablet Take 2 tablets by mouth every 8 hours. Facility-Administered Medications as of 05/18/2025 - warfarin 2 mg tab(s) (COUMADIN) - busPIRone 5 mg tab(s) (BUSPAR) - oxyCODONE IR 15 mg tab(s) (ROXICODONE) - lidocaine (PF) 10 mg/mL (1 %) 10-100 mg injection (XYLOCAINE) - melatonin 3 mg tab(s) - Darbepoetin Os[place] In Polysorbat 60 mcg injection (ARANESP) - senna 8.6 mg tab(s) (SENOKOT) - fentaNYL 50 mcg/mL 50 mcg injection (SUBLIMAZE) - vitamin A 10,000 Units cap(s) (AQUASOL A) - warfarin order for discharge - ascorbic acid 500 mg chewable tab(s) - pyridoxine (vitamin B6) 50 mg tab(s) (VITAMIN B6) - fentaNYL 50 mcg/mL 25 mcg injection (SUBLIMAZE) - LORazepam 0.25 mg tab(s) (ATIVAN) - polyethylene glycol 3350 17 g packet - calcitriol 1.5 mcg cap(s) (ROCALTROL) - acetaminophen 650 mg tab(s) (TYLENOL) - aspirin 81 mg chewable tab(s) - midodrine 20 mg tab(s) (PROAMATINE) - cinacalcet 60 mg tab(s) (SENSIPAR) - sevelamer carbonate 800 mg tab(s) (RENVELA) - NaCl 0.9% iv flush bag Meds Comments as of 07/14/2023: 07/14/23 The medications are managed by this patient by: PATIENT Nini Redd, [facility]ly [facility] Problem List As Of Date 05/18/2025 Noted Resolved ESRD (end stage renal disease) on dialysis ([facility]*10/16/2012 HTN (hypertension) [I10] 10/16/2012 Obesity [E66.9] 11/02/2012 Epigastric pain [R10.13] 11/02/2012 Mechanical complication of other vascular devic*02/12/2013 Right knee pain [M25.561] 07/29/2013 Obesity, morbid, BMI 40.0-49.9 ([facility]) [E66.01] 02/22/2014 Tendinitis of left shoulder [M77.8] 02/22/2014 Mass of left thigh [R22.42] 09/08/2014 Thigh pain [M79.659] 09/08/2014 Hematuria [R31.9] 12/08/2014 Dialysis patient ([facility]) [Z99.2] 12/08/2014 YEIMY (obstructive sleep apnea) [G47.33] 05/09/2015 Abdominal or pelvic swelling, mass, or lump, ri*05/09/2015 Secondary hyperparathyroidism, renal (HCC) [N25*05/09/2015 Renal osteodystrophy [N25.0] 05/09/2015 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*05/09/2015 Groin pain [R10.30] 05/09/2015 Personal history of DVT (deep vein thrombosis) *03/28/2016 Sprain of medial collateral ligament of right k*04/22/2016 ESRD (end stage renal disease) ([facility]) [N18.6] 04/21/2019 PAF (paroxysmal atrial fibrillation) ([facility]) [I48*12/02/2018 A-V fistula ([facility]) [I77.0] 04/23/2019 Anemia of chronic disease [D63.8] 04/23/2019 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] 05/18/2021 ESRD on hemodialysis ([facility]) [N18.6, Z99.2] 04/07/2019 Expressive dysphasia [R47.02] 08/01/2021 History of endocarditis [Z86.79] 08/01/2021 Hearing loss [H91.90] 02/17/2018 History of non-ST elevation myocardial infarcti*11/08/2019 Heart failure, unspecified ([facility]) [I50.9] 08/05/2011 Iron deficiency anemia, unspecified [D50.9] 05/31/2008 Chronic anticoagulation [Z79.01] 08/01/2021 Mitral valve disease [I05.9] 08/01/2021 Myocardial infarction ([facility]) [I21.9] 08/01/2021 Noncompliance with medication regimen [Z91.148] 08/01/2021 Paroxysmal atrial flutter ([facility]) [I48.92] 08/01/2021 Pulmonary embolism ([facility]) [I26.99] 08/01/2021 Pulmonary edema [J81.1] 08/01/2021 Stenosis of other vascular prosthetic devices, *05/22/2021 Unspecified atherosclerosis of [place] arteries *10/30/2013 Vitamin D deficiency [E55.9] 10/16/2020 Hypervolemia [E87.70] 08/01/2021 09/04/2021 Open wound of right side of back [S21.201A] 08/01/2021 History of stroke [Z86.73] 08/01/2021 Hypotension, chronic [I95.89] 08/01/2021 Falls [R29.6] 08/01/2021 Mitral valve stenosis, severe [I05.0] 08/03/2021 Mitral stenosis [I05.0] 08/03/2021 Obesity, Class II, BMI 35-39.9 [E66.812] 08/04/2021 Discharge planning issues [Z75.8] 08/17/2021 08/31/2021 Dental caries [K02.9] 08/19/2021 Pain, postoperative, acute [G89.18] 08/21/2021 08/29/2021 Coagulopathy (HCC) [D68.9] 08/21/2021 08/22/2021 S/P MVR (mitral valve replacement) [Z95.2] 08/22/2021 Acute pulmonary edema (HCC) [J81.0] 08/25/2021 08/31/2021 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]08/25/2021 CHB (complete heart block) (HCC) [I44.2] 08/29/2021 Encounter for support and coordination of trans*08/31/2021 Abdominal pain [R10.9] 09/28/2022 Nausea and vomiting [R11.2] 09/28/2022 09/30/2022 Near syncope [R55] 09/28/2022 Acute colitis [K52.9] 09/29/2022 Supratherapeutic INR [R79.1] 09/30/2022 Anemia of chronic disorder [D63.8] 06/12/2023 Atrial fibrillation (HCC) [I48.91] 12/02/2018 Essential hypertension, benign [I10] 1998 Abdominal wall skin ulcer, with unspecified sev*06/24/2023 Acute on chronic blood loss anemia [D62] 06/24/2023 Melena [K92.1] 06/24/2023 Hypotension [I95.9] 06/24/2023 Adjustment disorder with depressed mood [F43.21]06/27/2023 Hyperkalemia [E87.5] 06/30/2023 Hyponatremia [E87.1] 06/30/2023 Metabolic acidosis [E87.20] 06/30/2023 Anemia of renal disease [N18.9, D63.1] 06/30/2023 Skin pain [R20.8] 06/30/2023 Bleeding ulcer [K28.4] 06/30/2023 MSSA bacteremia [R78.81, B95.61] 07/01/2023 Proximal colon ulcer [K63.3] 07/02/2023 Aftercare for long-term (current) use of antibi*07/02/2023 Anemia due to chronic kidney disease, on chroni*07/02/2023 Mild protein-calorie malnutrition (HCC) [E44.1] 08/31/2023 Acquired hypothyroidism [E03.9] 03/17/2024 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 *03/18/2024 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] 03/18/2024 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] 03/18/2024 At risk for alteration in skin integrity based *03/20/2024 Venous collateral circulation [I99.8] 03/21/2024 Hypothyroidism [E03.9] 03/21/2024 H/O mitral valve replacement with mechanical va*03/21/2024 Hypocalcemia due to chronic kidney disease [E83*03/25/2024 Chronic pain syndrome [G89.4] 03/28/2024 Uremia [N19] 04/22/2024 Jugular vein occlusion, 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*04/22/2024 Arteriovenous graft stenosis, sequela [T82.858S]04/22/2024 Open abdominal wall wound [S31.109A] 04/23/2024 Anemia due to stage 5 chronic kidney disease, n*10/13/2024 Status post Maze operation for atrial fibrillat*10/13/2024 Ulcers, venous (HCC) [I83.009, L97.909] 10/13/2024 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] 10/14/2024 11/02/2024 Generalized weakness [R53.1] 10/15/2024 Impaired functional mobility, balance, gait, an*10/15/2024 Ischemic ulcer with fat layer exposed (HCC) [L9*10/21/2024 Gastroesophageal reflux disease without esophag*11/03/2024 Secondary hyperparathyroidism (HCC) [N25.81] 11/03/2024 Anemia in chronic kidney disease (CODE) [D63.1] 11/03/2024 Wounds, multiple [T07.XXXA] 04/21/2025 Anemia due to multiple mechanisms [D64.89] 04/21/2025 Hemorrhage from open wound of left chest wall [*04/21/2025 Bleeding from open wound of chest wall, right, *04/21/2025 Open chest wound, right, sequela [S21.101S] 04/22/2025 Open chest wound, left, sequela [S21.102S] 04/22/2025 Back wound, unspecified laterality, sequela [S2*04/22/2025 Open wound of abdomen [S31.109A] 04/22/2025 Open wound of right thigh [S71.101A] 04/22/2025 Bleeding from wound [T14.8XXA] 04/23/2025 Difficult intravenous access [Z78.9] 04/24/2025 Hypervolemia [E87.70] 04/25/2025 Skin ulcers (HCC) [L98.499] 04/27/2025 Vitamin C deficiency [E54] 05/03/2025 Vitamin A deficiency [E50.9] 05/03/2025 Vitamin B6 deficiency [E53.1] 05/03/2025 Second degree AV block, Mobitz type I [I44.1] 05/06/2025 Encounter Status:Closed by RADHA PETERSON on 05/18/25 THERAPY NT Observed: 05/18/2025 9:22 AM Status: COMPLETED [id number] Author: LUCILLE MURPHY, PT Service: Physical Therapy Author Type: Physical Therapist Type: Therapy (PT/OT/Speech/Resp) Filed: 05/18/2025 09:23 Note Text: PHYSICAL THERAPY MISSED VISIT SERVICE DATE: 05/18/2025 SERVICE TIME: 921 ROOM: [place] [id number] (J1-5 CARD FUNCTION LAB) Patient not seen due to Test / Procedure. Pt off unit at test. Will re-attempt as schedule allows. SIGNATURE: Lucille Murphy PT PATIENT NAME: Elia Weston DATE: May 18, 2025 TIME: 9:22 AM NURSING PROG Observed: 05/18/2025 9:06 AM Status: COMPLETED Source: [facility] HNO ID: [id number] Author: FELIPA FERRARA RN Service: ? Author Type: Registered Nurse Type: Nursing Progress Note Filed: 05/18/2025 10:59 Note Text: ..AMBULATORY PATIENT EDUCATION TOPIC: YONATHAN READINESS TO LEARN COGNITIVE ABILITY: Alert and oriented MOTIVATION TO LEARN: Eager FAMILY SUPPORT: Unable to assess - Family not present INSTRUCTION PROVIDED TO: Patient PATIENT LEARNS BEST BY: Individual Instruction Verbal Instruction FACTORS AFFECTING LEARNING: None PHYSICAL LIMITATIONS AFFECTING LEARNING: None LEARNING RESPONSE DIAGNOSIS: r/o endo METHOD OF INSTRUCTION: Individual instruction PATIENT / FAMILY RESPONSE: Verbalizes understanding of: POST-PROCEDURE INSTRUCTIONS-Correct actions to take to reduce post procedure complications PRE-PROCEDURE INSTRUCTIONS-Correct action to take to follow pre-procedure instructions FOLLOW-UP PLAN: Complete - No need for follow-up SUPPLEMENTAL MATERIAL: None REFERRAL (RECOMMENDATION): None Electronically Signed By Felipa Ferrara RN In Department: CARDIOLOGY PROGRESS Observed: 05/18/2025 6:39 AM Status: COMPLETED Source: [facility] HNO ID: [id number] Author: LUIS CUI MD Service: General Internal Medicine Author Type: Resident Type: Progress Notes Filed: 05/18/2025 20:36 Note Text: Attestation signed by Luis Cui MD at 05/18/2025 8:36 PM TEACHING PHYSICIAN NOTE OF PERSONAL INVOLVEMENT IN CARE I have reviewed the Progress Note obtained and documented by Resident and I personally participated in the mendoza components. I have discussed the case and management of the patient's care with them. The following comments revise or confirm relevant mendoza components of the note. Agree with assessment and plan. Greenhouse Manager:Prolonged Service: I personally spent greater than 30 minutes involved in patient care and coordination of services for this patient uLis Cui MD Authenticated by responsible provider. [facility] OF [facility] MEDICINE PROGRESS NOTE SERVICE DATE: 05/18/2025 SERVICE TIME: 6:39 AM Hospital Medicine/Primary Attending: Luis Cui MD NIGHT AND WEEKEND COVERAGE: [facility] COVERAGE: Nights: [phone], please page Team Jeffrey Haq; overnight/admitting pager [phone] Subjective Chief Complaint: Pain and chronic chest wound bleeding INTERVAL HPI: Mr. 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 Patient was hospitalized in September 2024 to October 2024 for pain and bleeding from the wounds. Patient was seen by dermatology back then for his skin ulcers. Biopsy performed and was most c/w reactive ischemic changes without features of Pyoderma Gangrenosum or Calciphylaxis. Now, plan for venoplasty with IR pending improvement in INR. Dermatology consulted and underwent steroid trial at wound edge. He was bridged to warfarin while here given his history of mechanical valve. Stay further complicated by new bradycardia, found to have Mobitz 1 second-degree AV block for which cardiology/EP was consulted. Overnight Events: NAEO Bedside: Patient feels okay. Slept less and is tired but otherwise no acute concerns Vitals: Stable Labs: Potassium 4.7 Hemoglobin 7.7 (uptrending since 2 days) N.p.o. today at midnight for YONATHAN 05/18/25. Current Facility-Administered Medications Medication Dose Route Frequency NaCl 0.9% iv flush bag 20 mL INTRAVENOUS PRN acetaminophen 650 mg tab(s) (TYLENOL) 650 mg ORAL q 6 H PRN aspirin 81 mg chewable tab(s) 81 mg ORAL DAILY midodrine 20 mg tab(s) (PROAMATINE) 20 mg ORAL q 8 H cinacalcet 60 mg tab(s) (SENSIPAR) 60 mg ORAL DAILY sevelamer carbonate 800 mg tab(s) (RENVELA) 800 mg ORAL TID w MEALS polyethylene glycol 3350 17 g packet 17 g ORAL DAILY calcitriol 1.5 mcg cap(s) (ROCALTROL) 1.5 mcg ORAL - LORazepam 0.25 mg tab(s) (ATIVAN) 0.25 mg ORAL DAILY PRN fentaNYL 50 mcg/mL 25 mcg injection (SUBLIMAZE) 25 mcg INTRAVENOUS DAILY PRN warfarin order for discharge OTHER PRN ascorbic acid 500 mg chewable tab(s) 500 mg ORAL DAILY pyridoxine (vitamin B6) 50 mg tab(s) (VITAMIN B6) 50 mg ORAL DAILY vitamin A 10,000 Units cap(s) (AQUASOL A) 10,000 Units ORAL DAILY senna 8.6 mg tab(s) (SENOKOT) 8.6 mg ORAL/FEEDING TUBE BID fentaNYL 50 mcg/mL 50 mcg injection (SUBLIMAZE) 50 mcg INTRAVENOUS DAILY PRN melatonin 3 mg tab(s) 3 mg ORAL/FEEDING TUBE AT BEDTIME PRN Darbepoetin Osito In Polysorbat 60 mcg injection (ARANESP) 60 mcg SUBCUTANEOUS q Wed lidocaine (PF) 10 mg/mL (1 %) 10-100 mg injection (XYLOCAINE) 1-10 mL INTRADERMAL DIRECTED PRN oxyCODONE IR 15 mg tab(s) (ROXICODONE) 15 mg ORAL q 4 H PRN busPIRone 5 mg tab(s) (BUSPAR) 5 mg ORAL DAILY Objective PHYSICAL EXAM: BP 97/74 Pulse 104 Temp (Src) 98.4 (Axillary) Resp 18 Ht 5' 9.685 (1.77m) Wt 255 lb 8.2 oz (115.9kg) SpO2 100% BMI 36.99 kg/(m2). O2 Therapy: Continuous Positive Airway Pressure, Liters (Numeric Only): 2, %FIO2: 28 Physical Exam Performed GENERAL: Alert, no distress, cooperative SKIN: Right and Left anterior and posterior chest wounds: chronic, bleeding, no purulent discharge. LUNGS: Lungs clear to auscultation, Good diaphragmatic excursion CARDIAC: Normal S1 and S2; no rubs, murmurs, or gallops ABDOMEN: Abdomen soft, non-tender, BS normal, No masses or organomegaly Lines, Drains, and Airways Line Duration Peripheral 04/26/25 2[facility] Right Forearm 20 Gauge 21 days Dialysis / Apheresis Double Lumen 04/29/25 1005 [facility] Tunneled Right Internal Jugular 18 days DATA: Diagnostic tests reviewed for today's visit: Most recent labs Most recent imaging Most recent EKG Labs: Latest Reference Range AND Units 05/16/25 01:55 05/17/25 07:15 05/18/25 01:30 05/18/25 04:06 Sodium 136 - 144 mmol/L 138 138 137 Potassium 3.7 - 5.1 mmol/L 5.2 (H) 5.7 (H) 4.7 Chloride 98 - 107 mmol/L 98 99 98 CO2 22 - 30 mmol/L 24 22 25 BUN 9 - 24 mg/dL 24 34 (H) 13 Creatinine 0.73 - 1.22 mg/dL 7.82 (H) 9.50 (H) 5.63 (H) Glucose 74 - 99 mg/dL 87 77 105 (H) Protein, Total 6.3 - 8.0 g/dL 7.7 7.2 7.1 Calcium 8.5 - 10.2 mg/dL 7.9 (L) 7.2 (L) 7.9 (L) Magnesium 1.7 - 2.3 mg/dL 2.5 (H) Albumin 3.9 - 4.9 g/dL 3.7 (L) 3.6 (L) 3.4 (L) Bilirubin, Total 0.2 - 1.3 mg/dL 0.3 0.3 0.3 Alkaline Phosphatase 38 - 113 U/L 156 (H) 146 (H) 148 (H) ALT 10 - 54 U/L 13 9 (L) 11 AST 14 - 40 U/L 17 17 21 Anion Gap 8 - 15 mmol/L 16 (H) 17 (H) 14 eGFR >=60 mL/min/1.73m? 8 (L) 6 (L) 12 (L) WBC 3.70 - 11.00 k/uL 7.00 5.76 6.27 RBC 4.20 - 6.00 m/uL 2.55 (L) 2.61 (L) 2.64 (L) Hemoglobin 13.0 - 17.0 g/dL 7.2 (L) 7.4 (L) 7.6 (L) Hematocrit 39.0 - 51.0 % 24.9 (L) 24.0 (L) 24.6 (L) Platelet Count 150 - 400 k/uL 198 185 201 MCV 80.0 - 100.0 fL 97.6 92.0 93.2 MCH 26.0 - 34.0 pg 28.2 28.4 28.8 MCHC 30.5 - 36.0 g/dL 28.9 (L) 30.8 30.9 MPV 9.0 - 12.7 fL 11.6 11.2 11.0 RDW-CV 11.5 - 15.0 % 19.7 (H) 20.5 (H) 20.1 (H) Absolute nRBC <0.01 k/uL <0.01 <0.01 <0.01 PT Sec 9.7 - 13.0 sec 26.8 (H) 34.7 (H) 29.1 (H) PT INR 0.9 - 1.3 2.6 (H) 3.5 (H) 2.9 (H) (H): Data is abnormally high (L): Data is abnormally low Transthoracic echocardiogram 05/06/25: EF: 60%, left ventricular hypertrophy, right ventricle normal, trace tricuspid valve regurgitation, trace pulmonic valve regurgitation, no pericardial effusion, aorta normal in size CXR 04/21/25: TDC with tip in RA. Increase of perihilar and basilar opacities with volume loss, suggesting atelectasis, possible underlying edema/inflammation. Blunting of L CP angle, which may represent tiny effusion or pleural thickening. CT A/P 04/22/25: No abdominal or pelvic subcutaneous fluid collection of gas. Redemonstrated diffuse subcutaneous extensive abdominal wall collaterals, similar to prior CTA 10/17/2024. CT chest 04/22/25: extensive chest wall collaterals, few areas of skin ulceration, no areas of drainable fluid collection. Findings consistent with central venous stenoses. Few patchy groundglass opacities, may be related to mild pulm edema Assessment/Plan Problem List Assessment AND Plan Bleeding from open wound of chest wall, right, initial encounter Secondary hyperparathyroidism, renal (HCC) ESRD on hemodialysis (HCC) History of non-ST elevation myocardial infarction (NSTEMI) Vitamin D deficiency S/P MVR (mitral valve replacement) Supratherapeutic INR Atrial fibrillation (HCC) Acute on chronic blood loss anemia Adjustment disorder with depressed mood Acquired hypothyroidism Acquired stenosis of superior vena cava Venous collateral circulation Status post Maze operation for atrial fibrillation Ulcers, venous (HCC) Wounds, multiple Anemia due to multiple mechanisms Hemorrhage from open wound of left chest wall Open chest wound, right, sequela Open chest wound, left, sequela Back wound, unspecified laterality, sequela Open wound of abdomen Open wound of right thigh Bleeding from wound Difficult intravenous access Hypervolemia Skin ulcers (HCC) Vitamin C deficiency Vitamin A deficiency Vitamin B6 deficiency Second degree AV block, Mobitz type I HOSPITAL COURSE: Elia Weston is a 45 year old male with extensive PMH, significant for ESRD on HD (MWF) last session 04/18 (skipped Friday since he came to ED), CAD s/p CABG, severe MS s/p MVR on Warfarin (goal INR of 2.5-3.5), pAfib s/p maze procedure and RADHA clip and chronic chest/abdominal/back wounds (3 years) likely secondary to ischemia in context of SVC syndrome and multiple thrombosis, who presented to the ED with 1-day of left chronic chest wound bleeding. Admitted for management of bleeding, and on transfer to [facility], patient began to have significant bleeding from R chest wound. Continuous pressure was applied and bleeding stopped. Now s/p FFP and RBC transfusions as appropriate. Initially started on Vanc/Zosyn given elevated ESR/CRP and WBC, no infectious concern on further imaging with improved lactate WBC, so ABx were stopped. Dermatology and wound care consulted. IR consulted, planning for venoplasty given INR reversal. 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 Hx of hemorrhagic shock from bleeding abdominal wounds - presenting with acute worsening of pain and bleeding from wounds. Denies purulent discharge from wounds. - Leukocytosis + Elevated CRP 22.1 and ESR 133 + Elevated lactate on presentation; concerned for infected wounds/soft tissue infection. Started on IV vanc/zosyn, later d/janie due to low infectious concern (04/21-04/25) - On admission, acute rise in lactate in light of acute significant bleeding and drop in HGB (8.6 from 9.5 in ED) likely secondary to hypovolemia, also missed dialysis - CT venogram on 10/19/24 with b/l brachiocephalic stenosis w b/l subclavian vein occlusion, extensive venous collaterals - 10/22/24: Venoplasty completed by IR, removed L femoral TDC, exchanged R TDC - blood cultures 04/20/25 with NG5D x2 - AMET for hypotension 80/50, s/p 500 cc LR bolus, scheduled midodrine with improved repeat 102/63 - lactate 2.4 from 1.7, improved from 3.2 at admission. Completed 5d course of IV vanc/zosyn (04/21-04/25) - CT chest and CT A/P 04/22/25 with no drainable fluid collections, extensive chest collaterals - nutritional workup: B12 elevated, folate wnl, iron low 26, TIBC low 137, trans sat wnl, low vit D 22.9, zinc 69 wnl, low vit A 0.10 - 04/29/25: Venoplasty: completed by IR. 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 Right upper chest tunneled dialysis catheter was exchanged over a wire for a new on; ready for use PLAN: - IR consulted: > venoplasty 04/29/2025 - no complications - Derm consulted: > ongoing nutritional workup > discontinued clobetasol 0.05% ointment BID per derm, lesion over R scapula, try to simulate tx of PG and assess response > [facility] D[facility] f/u outpatient - continue vitamin D supplement 5000 unit(s), ascorbic acid 500mg/day, vit B6 50mg/day, vit A 10,000 units/day - wound care team consulted, appreciate care - pain control: tylenol 650 mg q6h prn and oxycodone 10 mg po q6h PRN. > IV fent for dressing changes as needed - plastic surgery consulted: > no indication for surgical intervention at this time - Cautious fluid resuscitation in light of acute bleeding and ESRD anuric on HD - Chest wound dressings to be changed every day - Bilateral Upper Extremity doppler 05/12: No evidence of patent arteriovenous fistulas bilaterally - Patient has uncontrolled pain from his chest wounds/bleeding - Updated Oxycodone to 15mg PO q4 PRN - Patient states he does not want Tylenol as it hasn't worked for him in the past - Patient has better pain control today than yesterday after the updated pain management regimen - Plastic surgery consulted due to ongoing wound bleeding overnight - Plastic surgery will reassess patient's wounds with pain optimization #Supratherapeutic INR #CAD s/p CABG #Severe MS s/p mechanical MVR on coumadin #Paroxysmal Afib s/p multiple DCCV s/p Maze procedure + RADHA clip (07/2021) - atrial fibrillation and severe mitral stenosis s/p mechanical mitral valve replacement with On-x valve (INR goal 2.5-3.5), Maze procedure and RADHA clip on 08/21/2021. - Goal INR 2.5- 3.5; on warfarin 2.5 mg daily although patient not sure of dose, has been changed recently; last dose of warfarin Thursday 04/19 - INR elevated to 5.1 on admission, improved to 3.9 s/p 2u FFP 04/21 - possible etiology of supratherapeutic INR: warfarin dose (given patient not sure of home dose) vs malnutrition vs liver disease (less likely given AST/ALT wnl) - INR elevated again to 5.3, patient received po vitamin K 5 mg 04/25. Improved to 1.7 - INR 3.3 on 05/08 - INR of 5.2 on 05/10/25. Warfarin held today. PLAN: - given subtherapeutic INR and no intervention by plastic surgery planned, continue bridging to warfarin > goal INR 2.5 - 3.5, given mechanical valve. - Heparin discontinued 05/07 - Daily INR - Follows with Dr. Moreno (cardiology in [place]) for mgmt of Coumadin, will need follow-up outpatient - 1mg Vitamin K IV given to reverse Warfarin, in view of undergoing YONATHAN, with YONATHAN lab protocol of INR<4. - INR 05/11/25: 2.0, 3 mg Warfarin given. - INR 2.1 05/12/2025 warfarin increased to 3.5 - INR: 2.3 05/13/25, warfarin 3 mg ordered - Spoke to patient for considering Heparin GTT inpatient, however, patient refuses - INR 2.6 on 05/15/25: Last dose of warfarin given: 3mg on 05/13/25. 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) - INR from 05/15/2025: 2.6 - 3mg Warfarin ordered PO 05/15/25 - INR 2.6 on 05/16/2025, repeat 3 mg warfarin PO - INR 3.5 on 05/17/25, half dose warfarin PO: 2mg on 05/17/25 - INR 2.9 on 05/18/25, will give 2mg on 05/18/25 # Second-degree AV Block, Mobitz Type I - Patient having multiple episodes of bradycardia in the hospital with low blood pressures - Magnesium level 2.2 (05/05/25) - EKG (05/05/25) shows Second degree AV block, mobitz type 1 - EKG (05/06/25): shows sinus rhythm with 2nd degree AV shantell, mobitz type 1 - Transthoracic echocardiogram 05/06/25: EF: 60%, left ventricular hypertrophy, right ventricle normal, trace tricuspid valve regurgitation, trace pulmonic valve regurgitation, no pericardial effusion, aorta normal in size PLAN: - Cardiology team consulted, appreciate recs - Echocardiogram completed, results as above - Cardiology suggest EP consult given risk of progression of 2nd degree AVB, type 1 to higher degree AVB - EP consult on 05/09/25: Consult in process, signed note pending - EP Consult on 05/09/25 Recommendations: -Suggest YONATHAN to assess for possible endocarditis or other pathology - No current pacemaker indications, however, further investigation warranted due to rapid progression since Sep 2024. - YONATHAN ordered, NPO midnight - Patient was scheduled for YONATHAN on 05/13/25, however, due to hypotension during sedation attempt it was terminated. Plan to schedule YONATHAN with General Anesthesia, per Cardiology, earliest date is Friday05/17/25. - Patient scheduled for YONATHAN for 05/18/25, NPO midnight - Patient has daily EKGs and Telemetry to monitor as of 05/16/25 #Constipation - Last recorded bowel movement was on 05/14/25 PLAN: - Polyethylene glycol daily - Start Senna BID #ESRD on HD via Right TDC #Chronic Hypotension #Secondary 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 - iHD at [facility] through R. Tunneled HD catheter MWF - Last dialysis session Friday04/18/2025; missed Fri session because he presented to [facility] ED - anuric at baseline per patient - Serum P=9.7 - completed HD 04/21, now on MWF - PTH elevated 578, Ca 8.3 low PLAN: - nephrology consulted: > continue MWF HD schedule > continue calcitriol MWF - Continue Sensipar, renvela with meals - continue home Midodrine 20mg every 8 hours - Dialysis today on 05/17/25 due to missed dose on 05/16/25 #Anemia of Chronic Disease/ESRD - Baseline hemoglobin 9-11 - iron studies 12/2024: iron 33, TIBC 156, Iron sat 21, ferritin 1327 - Hgb dropping iso bleeding wounds, as above. - received 1u pRBC 04/21, Hgb from 7.3 -> 7.7 post-transfusion - Hgb 6.9 on 04/22, s/p additional 2u pRBC with Hgb in ~8s PLAN: - Hgb goal >8, 8.4 (05/08/25). - chronic wound mgmt, as above - Iron levels of 36, TIBC- WNL, Ferritin high at 996 on 05/08/25, Replete Iron levels for ANABELLA, per Nephrology recommendation, however due to concerns for ongoing possible endocarditis, we will refrain from IV Iron use until further workup. #Code status - Full # Diet - renal # VTE PPx - warfarin # Dispo Planning - Pending clinical course, SW consulted for recent unemployment, c/f food insecurity #Adjustment disorder? #Low mood - Psychology consulted 05/10/25 - Music therapy - Art therapy - Healing services - Aroma therapy, spiritual services, and brief inpatient psychotherapy ordered per Psychology's recommendation, 05/11/25. Medication and Non-Pharmacologic VTE Prophylaxis/Anticoagulants Anticoagulant AND Antiplatelet Medications (From admission, onward) Start Dose Route Frequency Last Action Ordered Stop 04/21/25 0900 aspirin 81 mg chewable tab(s) 81 mg PO DAILY Given, 05/17 1243 04/21/25 0316 -- 04/10/25 1015 activity - mobilize [place] ([place]) 04/04/25 0900 graduated compression stockings ([place] VTE Prophylaxis: VTE prophylaxis appropriate Disposition: To be determined Plan of care discussed with Provider, RN, Patient Plan communicated to: Family Dae Miner MD PGY-1 [place], [phone] My Pager CBC PNL BLD AUTO Collected: 5 4:06 AM Status: F Source: [facility] Order Comment: Specimen Type : BLOOD SPECIMEN Ordering Facility: [facility] Address: [address] [place] [address] TYPE CODE TESTS RESULT OUT OF RANGE REFERENCE UNITS LAB 6690-2(LOINC) WBC # Bld Auto 6.27 3.70-11.00 k/uL LAB 789-8(LOINC) RBC # Bld Auto 2.64 Low 4.20-6.00 m/uL LAB 718-7(LOINC) Hgb Bld-mCnc 7.6 Low 13.0-17.0 g/dL LAB 4544-3(LOINC) Hct VFr Bld Auto 24.6 Low 39.0-51.0 % LAB 787-2(LOINC) MCV RBC Auto 93.2 80.0-100.0 fL LAB 785-6(LOINC) MCH RBC Qn Auto 28.8 26.0-34.0 pg LAB 786-4(LOINC) MCHC RBC Auto-mCnc 30.9 30.5-36.0 g/dL LAB 06730-1(LOINC) RDW RBC-Rto 20.1 High 11.5-15.0 % LAB 777-3(LOINC) Platelet # Bld Auto 201 150-400 k/uL LAB 26048-4(LOINC) PMV Bld Auto 11.0 9.0-12.7 fL LAB 771-6(LOINC) nRBC # Bld Auto <0.01 <0.01 k/uL Performed By: #### [id number] # ### [facility] CLIA [id number] [address] [place] [address] [place] PT PNL PPP Collected: 05/18/2025 1:30 AM Status: F Source: [facility] Order Comment: Specimen Type : BLOOD SPECIMEN Ordering Facility: [facility] Address: [address] [place] [address] TYPE CODE TESTS RESULT OUT OF RANGE REFERENCE UNITS LAB 5902-2(INC) Prothrombin time 29.1 High 9.7-13.0 sec LAB 6301-6(INC) INR PPP 2.9 High 0.9-1.3 Result Comment: Vitamin K An tagonist (VKA) Therapeutic Range: INR 2 to 3 (Target INR of 2.5) Note: For patients treated with VKA drugs, such as warfarin, the [place] [employer]icians 2012 Guideline recommends a therapeutic INR range of 2 to 3 (target INR of 2.5). This recommendation includes high-risk patients with antiphospholipid syndrome with previous arterial or venous thromboembolism, current-generation mechanical or bioprosthetic aortic heart valve replacement. Note: Patients with mechanical aortic valve replacement and additional risk factors for thromboembolic events (atrial fibrillation, previous thromboembolism, LV dysfunction, hypercoagulable conditions) or an older generation mechanical AVR (i.e., ball in-Cage) or any mechanical MVR should have a INR therapeutic range of 2.5 to 3.5 (target INR of 3). Ranjit YOUSSEF, et al. Chest 2012, 141:7S-47S Kevin RA, et al. [facility] 2017, 70: 252-289 Performed By: #### [id number] # ### [facility] IA [id number] [address] [place] [address] [place] COMP METAB 2000 PNL SERPL Collected: 1:30 AM Status: F Source: [facility] Order Comment: Specimen Type : BLOOD SPECIMEN Ordering Facility: [facility] Address: [address] [place], [place] [address] [id number] TYPE CODE TESTS RESULT OUT OF RANGE REFERENCE UNITS LAB 2885-2(LOINC) Prot SerPl-mCnc 7.1 6.3-8.0 g/dL LAB 1751-7(LOINC) Albumin SerPl-mCnc 3.4 Low 3.9-4.9 g/dL LAB 58676-8(LOINC) Calcium SerPl-mCnc 7.9 Low 8.5-10.2 mg/dL LAB 1975-2(LOINC) Bilirub SerPl-mCnc 0.3 0.2-1.3 mg/dL LAB 6768-6(LOINC) ALP SerPl-cCnc 148 High 38-113 U/L LAB 1920-8(LOINC) AST SerPl-cCnc 21 14-40 U/L LAB 1742-6(LOINC) ALT SerPl-cCnc 11 10-54 U/L LAB 2345-7(LOINC) Glucose SerPl-mCnc 105 High 74-99 mg/dL Result Comment: The [place] Diabetes Association (ADA) provides guidance for cutoff values for fasting glucose and random glucose. The ADA defines fasting as no caloric intake for at least 8 hours. Fasting plasma glucose results between 100 to 125 mg/dL indicate increased risk for diabetes (prediabetes). Fasting plasma glucose results greater than or equal to 126 mg/dL meet the criteria for diagnosis of diabetes. In the absence of unequivocal hyperglycemia, results should be confirmed by repeat testing. In a patient with classic symptoms of hyperglycemia or hyperglycemic crisis, random plasma glucose results greater than or equal to 200 mg/dL meet the criteria for diagnosis of diabetes. Reference: Standards of Medical Care in Diabetes 2016, [place] Diabetes Association. Diabetes Care. 2016.39(Suppl 1). LAB 3094-0(LOINC) BUN SerPl-mCnc 13 9-24 mg/dL LAB 2160-0(LOINC) Creat SerPl-mCnc 5.63 High 0.73-1.22 mg/dL LAB 2951-2(LOINC) Sodium SerPl-sCnc 137 136-144 mmol/L LAB 2823-3(LOINC) Potassium SerPl-sCnc 4.7 3.7-5.1 mmol/L LAB 2075-0(LOINC) Chloride SerPl-sCnc 98 98-107 mmol/L LAB 2028-9(LOINC) CO2 SerPl-sCnc 25 22-30 mmol/L LAB 42097-6(LOINC) Anion Gap SerPl-sCnc 14 8-15 mmol/L LAB 22222-6(LOINC) eGFRcr SerPlBld CKD-EPI 2020 12 Low >=60 mL/min/1. 73m??? Result Comment: Estimated Gl omerular Filtration Rate (eGFR) is calculated using the 2020 CKD-EPI creatinine equation. This equation utilizes serum creatinine, sex, and age as parameters. The creatinine assay has traceable calibration to isotope dilution-mass spectrometry. Refer to KDIGO guidelines for clinical interpretation. In patients with unstable renal function, e.g. those with acute kidney injury, the eGFR may not accurately reflect actual GFR. Performed By: #### [id number] # ### [facility] CLIA [id number] [address] [place] [address] NURSING PROG Observed: 05/17/2025 9:16 PM Status: COMPLETED Source: [facility] HNO ID: [id number] Author: LEVI PATEL RN Service: Nursing Author Type: Registered Nurse Type: Nursing Progress Note Filed: 05/18/2025 06:17 Note Text: Other: Patient declines wound assessment and dressing changes. Educated patient about the risk of infection but patient continues to declined and verbalized that the doctor will change the dressing tomorrow. 0500-pt. fired for sepsis alert for heart of 115 beats/min (per tele 104 beats/min), creatinine of 5.63, and INR of 2.9, Dr. Wong ([place] litigation examiner) notified per text message. CONSULT PROG Observed: 05/17/2025 5:59 PM Status: COMPLETED Source: [facility] HNO ID: [id number] Author: CHAY QURESHI MD Service: Electrophysiology Author Type: Fellow Type: Consult Progress Note Filed: 05/17/2025 17:59 Note Text: [facility] ELECTR[facility]OLOGY CONSULT PROGRESS NOTE Elia Weston [id number] PRIMARY SERVICE: Internal Medicine CONSULTING SERVICE: Electrophysiology DATE OF ADMISSION: 04/20/2025 REASON FOR CONSULT: AV block IMPRESSION AND RECOMMENDATIONS: 45M with ESRD on HD, 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 The EP service are now consulted for rhythm management. - 13 Apr: Awaiting YONATHAN. - 14 Apr: Awaiting YONATHAN. ECG with DE continuing to prolong (~450 ms). - 15 Apr: Unable to undergo YONATHAN with conscious sedation (required a lot of sedation to be comfortable resulting in hypotension). - 16 Apr: ECG demonstrates DE ~430 ms - 18 Apr: Discussed EP plan in detail (YONATHAN to assess for IE, if no IE leadless PPM; if IE, multidisciplinary treatment including possible OHS). Recommendations: - Notable DE prolongation this admission (~400 ms) as compared to prior (~220 ms in Sep 2024). Unknown aetiology and largely asymptomatic, though given infectious risk we must be suspicious for IE. - BCX x2 from admission (20 April) negative. - Awaiting YONATHAN to better assess for IE. Unable to be performed under conscious sedation (hypotension), awaiting YONATHAN with anaesthesia tomorrow. - Please obtain 12-lead ECG daily to reassess DE interval - If there is no evidence of IE, given unexplained DE prolongation and degeneration of conduction, shall likely plan for PPM before discharge (leadless device would be best in this patient with difficult vascular access and high infectious risk) - The EP Consult service shall continue to follow with you Sandhya Qureshi MD Fellow in Clinical Cardiac Electrophysiology, PGY-8 Section of Cardiac Pacing and Electrophysiology Heart, Vascular and Thoracic [place] [facility] CASE MANAGEM Observed: 05/17/2025 3:07 PM Status: COMPLETED Source: [facility] HN ID: [id number] Author: GEORGIA WARD RN Service: Care Management Author Type: Registered Nurse Type: Care Mgt Progress Note Filed: 05/17/2025 15:08 Note Text: CARE MANAGEMENT PROGRESS NOTE SERVICE DATE: 05/17/2025 SERVICE TIME: 3:07 PM LOS: 26 days Needs Prior to Discharge: To Be Determined, Procedure DISCHARGE PLAN Discharge plan discussed with: medical team, [facility] (dialysis center) Didi [phone] Anticipated Discharge Plan: TBD Anticipated Discharge Date: TBD DISCHARGE TRANSPORTATION Patient has been informed that discharge time is 12pm on day of discharge. Discharge Transportation: To be determined Discharge Barriers: YONATHAN 05/18, medical clearance CM will continue to follow for discharge needs. SIGNATURE: Georgia Ward RN, BSN PATIENT NAME: Elia Weston DATE: May 17, 2025 TIME: 3:07 PM CONSULT PROG Observed: 05/17/2025 1:25 PM Status: COMPLETED Source: [facility] ID: [id number] Author: BOLA GARVIN, PhD Service: Psychology Author Type: Psychologist Type: Consult Progress Note Filed: 05/17/2025 16:25 Note Text: Attestation signed by Bola Garvin, PhD at 05/17/2025 4:25 PM STAFF ATTESTATION This service has been performed by a fellow under the direction of myself as supervising psychologist. I was readily available to furnish assistance and direction throughout the encounter. I agree with the fellow's findings and plan as documented and have discussed the case and management of the patient's care with the fellow. Bola Garvin, Ph.D. Clinical Health Psychologist CL PSYCHOLOGY PROGRESS NOTE ADMISSION DATE: 04/20/2025 ATTENDING PROVIDER: Luis Cui MD PRIMARY CARE PROVIDER: No primary care provider on file. DATE: 05/17/2025 TIME: 1:25-2:25PM Patient referred for possible adjustment disorder. Elia Weston was seen bedside for 60 minutes by Janak Landry PsyD. TREATMENT SUMMARY: Upon arrival, patient was seen sleeping in bed but awoke to provider calling his name. He was alert, oriented, and engaged for the duration of session. Engaged in supportive counseling related to psychosocial factors impacting mood and engagement in care recently. Explored thoughts and feelings related to patient's decision to refuse care Friday as well as current perspective. Encouraged patient re: decision to engage in care moving forward. Reviewed medical timeline and its impact on his mental health and connection with his social supports. Identified recent visit from his rim buster as highly motivating and encouraging. Discussed additional coping strategies that have been useful when engaging with his medical care. Patient noted exacerbations to anxiety when there are unknownsrelated to his procedures. Provided psychoeducation about additional coping skills, including mental imagery, breathing, and use of patient's sharon/enjoyment of music to get through procedures with less distress. Towards the end of psychology session, patient's medical team arrived to discuss wound care; psychology assisted pt in requesting additional explanation re: procedure and process to reduce anxiety. Engaged in supportive counseling about social supports patient previously had who have . Encouraged use of positive memories during moments of distress, such as while in procedures. CL Psychology will continue to follow. INTERVENTIONS: Rapport building Psycho-education on anxiety and pain Discussion of coping skills/strategies Self Regulation Skills: Mental imagery as relaxation Motivational Interviewing Support and reassurance MENTAL STATUS EXAM: - Speech was within normal limits with regard to rate, tone and volume. - Mood was reported as better. - Affect was mood-congruent. - Impulse control was adequate. - Attention was good. - Thought-cognitive: There is no evidence of a formal thought disorder. - Thought processing: Goal directed, linear and organized - Suicidal or homicidal ideation: Patient denies any suicidal or homicidal ideation, plan or intent at this time. - Intelligence impression: Average - Judgment: Appropriate - Insight: Appropriate DIAGNOSES: Adjustment disorder with mixed anxiety and depressed mood ASSESSMENT/PLAN: Elia Weston is a 45-year-old male with past medical history of end-stage renal disease (goes to dialysis Mondays, Wednesdays, Fridays), hypertension, A-fib on Coumadin, CVA, mitral valve stenosis status post mechanical valve placement, SVC stenosis, variceal induced wounds presents to the emergency department for pain to wound on left chest. Patient reports he had wounds to his chest and back for 3 years. For 1 week he has had increased pain and yellow drainage to the wound to the left chest. He noticed it was bleeding this morning. Denies fever, chills, nausea, vomiting. Last session of dialysis was 2 days ago. Denies smoking, alcohol use, illicit drug use. Psychology consulted for possible adjustment disorder. The patient presents with complex medical history and voices distress related to deteriorated health over the course of the past 1.5 years. He denies any significant prior psychiatric history but endorses mild depressive symptoms correlating with exacerbations to physical health decline as well as newer onset worry related to impact on his family life. He denied current symptoms of SI or panic attacks. At this time, symptoms most consistent with adjustment disorder with mixed anxiety and depressed mood. Suspect that exacerbations in physical health symptoms, prolonged hospitalization, and reduced socialization with loved ones may contribute to mood and anxiety symptoms at this time. Today, patient presents as having less emotional dysregulation compared to reports documented from recent days. He reported that he has felt less anxious and down compared to the past few days and noted that psychosocial stressors impacted his mood and felt ability to engage in care. He evidenced renewed motivation and commitment to engagement in his medical care and expressed interest in coping more effectively with future procedures. He was able to discuss coping strategies that were previously effective and was open to psychoeducation about additional tools that may be useful. Suspect that advanced notice and additional explanations about details of procedure (when possible) may contribute to lessened anxiety and increased engagement in care. Psychology will continue to follow. RECOMMENDATIONS: - The patient may benefit from brief psychotherapy while hospitalized to promote use of adaptive strategies to assist with mood symptoms within the context of medical illness and current hospitalization. CL psychology will continue to follow while hospitalized. -Pt reports feelings of overwhelm and freezing in situations where multiple decisions/stressors are present at once. In moments of panic or overwhelm, pt is encouraged to: 1. Continue to utilize his anxiety thermometer worksheet to build somatic awareness of anxiety 2. Ask for PRN anxiety medication to assist in anxiety reduction at level of 5 or higher on thermometer 3. Utilize grounding technique 5-4-3-2-1 to re-center: 5 things you see, 4 things you feel, 3 things you can touch, 2 things you smell, 1 thing you taste 4. Engage in activities with the potential to increase positive emotions, including art and music therapy, working with PT/OT as able, watching television/listening to music, visiting with/calling family members, reading the Bible, watching TikTok videos - Given history of trauma, ensuring pt perceives safety in medical environment is of the utmost importance. Recommend trauma informed care practices including: - limiting the number of caregivers in the room at one time - avoid clustering around patient's bed; provide space and sit at bedside possible - keep providers as consistent as possible - speaking softly, maintaining calm presence at all times, with non-threatening body language - move slowly and ask before touching pt and narrate actions - validating and acknowledging patient emotions - offer patient choice and control with care by providing options whenever possible - Reducing noise and stimulation in the room Given pt's anxiety related to wound care, recommend the following when engaging in wound care and wound image capture to promote feelings of agency, safety, and collaboration: Establishing Consent at Every Step Maintaining privacy and Modesty Empowering the Patient in the Process Utilize Supportive Communication - Appreciate ongoing support from: Art Therapy, Music Therapy, Aromatherapy, and Radio News Anchor/Spiritual Services. - Following d/c the patient may benefit from outpatient psychotherapy follow-up ongoing psychology support. Resources provided to patient. SIGNATURE: Janak Landry PSYD PATIENT NAME: Elia Weston DATE: May 17, 2025 TIME: 3:30 PM PSYCHOLOGY PAGER: [phone] THERAPY NT Observed: 05/17/2025 11:18 AM Status: COMPLETED Source: [facility] HN ID: [id number] Author: LUCILLE MURPHY PT Service: Physical Therapy Author Type: Physical Therapist Type: Therapy (PT/OT/Speech/Resp) Filed: 05/17/2025 11:19 Note Text: PHYSICAL THERAPY MISSED VISIT SERVICE DATE: 05/17/2025 SERVICE TIME: 1117 ROOM: [place] [id number] (Q6-1 Hemodialysis) Patient not seen due to Test / Procedure. Pt off unit at dialysis. Will re-attempt as schedule allows. SIGNATURE: Lucille Murphy PT PATIENT NAME: Elia Weston DATE: May 17, 2025 TIME: 11:18 AM PROGRESS Observed: 05/17/2025 10:18 AM Status: COMPLETED Source: [facility] HNO ID: [id number] Author: DAE MINER MD Service: General Internal Medicine Author Type: Resident Type: Progress Notes Filed: 05/17/2025 10:26 Note Text: DEPARTMENT OF HOSPITAL MEDICINE PROGRESS NOTE SERVICE DATE: 05/17/2025 SERVICE TIME: 10:18 AM Hospital Medicine/Primary Attending: Luis Cui MD NIGHT AND WEEKEND COVERAGE: [facility] COVERAGE: Nights: [phone], please page Team Jeffrey Haq; overnight/admitting pager [phone] Subjective Chief Complaint: Pain and chronic chest wound bleeding INTERVAL HPI: Mr. 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 Patient was hospitalized in September 2024 to October 2024 for pain and bleeding from the wounds. Patient was seen by dermatology back then for his skin ulcers. Biopsy performed and was most c/w reactive ischemic changes without features of Pyoderma Gangrenosum or Calciphylaxis. Now, plan for venoplasty with IR pending improvement in INR. Dermatology consulted and underwent steroid trial at wound edge. He was bridged to warfarin while here given his history of mechanical valve. Stay further complicated by new bradycardia, found to have Mobitz 1 second-degree AV block for which cardiology/EP was consulted. Overnight Events: NAEO Bedside: Patient feels better today Vitals: Soft MAP's at 60s Labs: Potassium 5.7, IUF today Hemoglobin 7.4 (7.2 yesterday) N.p.o. today at midnight for YONATHAN tomorrow. Current Facility-Administered Medications Medication Dose Route Frequency NaCl 0.9% iv flush bag 20 mL INTRAVENOUS PRN acetaminophen 650 mg tab(s) (TYLENOL) 650 mg ORAL q 6 H PRN aspirin 81 mg chewable tab(s) 81 mg ORAL DAILY midodrine 20 mg tab(s) (PROAMATINE) 20 mg ORAL q 8 H cinacalcet 60 mg tab(s) (SENSIPAR) 60 mg ORAL DAILY sevelamer carbonate 800 mg tab(s) (RENVELA) 800 mg ORAL TID w MEALS polyethylene glycol 3350 17 g packet 17 g ORAL DAILY calcitriol 1.5 mcg cap(s) (ROCALTROL) 1.5 mcg ORAL - LORazepam 0.25 mg tab(s) (ATIVAN) 0.25 mg ORAL DAILY PRN fentaNYL 50 mcg/mL 25 mcg injection (SUBLIMAZE) 25 mcg INTRAVENOUS DAILY PRN warfarin order for discharge OTHER PRN ascorbic acid 500 mg chewable tab(s) 500 mg ORAL DAILY pyridoxine (vitamin B6) 50 mg tab(s) (VITAMIN B6) 50 mg ORAL DAILY vitamin A 10,000 Units cap(s) (AQUASOL A) 10,000 Units ORAL DAILY senna 8.6 mg tab(s) (SENOKOT) 8.6 mg ORAL/FEEDING TUBE BID fentaNYL 50 mcg/mL 50 mcg injection (SUBLIMAZE) 50 mcg INTRAVENOUS DAILY PRN melatonin 3 mg tab(s) 3 mg ORAL/FEEDING TUBE AT BEDTIME PRN Darbepoetin [place] In Polysorbat 60 mcg injection (ARANESP) 60 mcg SUBCUTANEOUS q Wed lidocaine (PF) 10 mg/mL (1 %) 10-100 mg injection (XYLOCAINE) 1-10 mL INTRADERMAL DIRECTED PRN oxyCODONE IR 15 mg tab(s) (ROXICODONE) 15 mg ORAL q 4 H PRN busPIRone 5 mg tab(s) (BUSPAR) 5 mg ORAL DAILY Objective PHYSICAL EXAM: BP 99/41[RN notfied[ Pulse 96 Temp (Src) 97.5 (Oral) Resp 18 Ht 5' 9.685 (1.77m) Wt 255 lb 8.2 oz (115.9kg) SpO2 94% BMI 36.99 kg/(m2). O2 Therapy: Continuous Positive Airway Pressure, Liters (Numeric Only): 2 Physical Exam Performed GENERAL: Alert, no distress, cooperative SKIN: Right and Left anterior and posterior chest wounds: chronic, bleeding, no purulent discharge. LUNGS: Lungs clear to auscultation, Good diaphragmatic excursion CARDIAC: Normal S1 and S2; no rubs, murmurs, or gallops ABDOMEN: Abdomen soft, non-tender, BS normal, No masses or organomegaly Lines, Drains, and Airways Line Duration Peripheral 04/26/25 2[facility] Right Forearm 20 Gauge 20 days Dialysis / Apheresis Double Lumen 04/29/25 1005 [facility] Tunneled Right Internal Jugular 18 days DATA: Diagnostic tests reviewed for today's visit: Most recent labs Most recent imaging Most recent EKG Labs: Latest Reference Range AND Units 05/14/25 18:38 05/15/25 01:54 05/16/25 01:55 05/17/25 07:15 Sodium 136 - 144 mmol/L 140 138 138 Potassium 3.7 - 5.1 mmol/L 5.1 5.2 (H) 5.7 (H) Chloride 98 - 107 mmol/L 98 98 99 CO2 22 - 30 mmol/L 27 24 22 BUN 9 - 24 mg/dL 15 24 34 (H) Creatinine 0.73 - 1.22 mg/dL 5.67 (H) 7.82 (H) 9.50 (H) Glucose 74 - 99 mg/dL 75 87 77 Protein, Total 6.3 - 8.0 g/dL 7.7 7.7 7.2 Calcium 8.5 - 10.2 mg/dL 8.1 (L) 7.9 (L) 7.2 (L) Magnesium 1.7 - 2.3 mg/dL 2.5 (H) Albumin 3.9 - 4.9 g/dL 3.8 (L) 3.7 (L) 3.6 (L) Bilirubin, Total 0.2 - 1.3 mg/dL 0.4 0.3 0.3 Alkaline Phosphatase 38 - 113 U/L 163 (H) 156 (H) 146 (H) ALT 10 - 54 U/L 13 13 9 (L) AST 14 - 40 U/L 20 17 17 Anion Gap 8 - 15 mmol/L 15 16 (H) 17 (H) eGFR >=60 mL/min/1.73m? 12 (L) 8 (L) 6 (L) WBC 3.70 - 11.00 k/uL 6.55 7.00 5.76 RBC 4.20 - 6.00 m/uL 2.61 (L) 2.55 (L) 2.61 (L) Hemoglobin 13.0 - 17.0 g/dL 7.5 (L) 7.2 (L) 7.4 (L) Hematocrit 39.0 - 51.0 % 25.5 (L) 24.9 (L) 24.0 (L) Platelet Count 150 - 400 k/uL 209 198 185 MCV 80.0 - 100.0 fL 97.7 97.6 92.0 MCH 26.0 - 34.0 pg 28.7 28.2 28.4 MCHC 30.5 - 36.0 g/dL 29.4 (L) 28.9 (L) 30.8 MPV 9.0 - 12.7 fL 11.7 11.6 11.2 RDW-CV 11.5 - 15.0 % 19.5 (H) 19.7 (H) 20.5 (H) Absolute nRBC <0.01 k/uL <0.01 <0.01 <0.01 PT Sec 9.7 - 13.0 sec 26.2 (H) 26.6 (H) 26.8 (H) 34.7 (H) PT INR 0.9 - 1.3 2.6 (H) 2.6 (H) 2.6 (H) 3.5 (H) (H): Data is abnormally high (L): Data is abnormally low Transthoracic echocardiogram 05/06/25: EF: 60%, left ventricular hypertrophy, right ventricle normal, trace tricuspid valve regurgitation, trace pulmonic valve regurgitation, no pericardial effusion, aorta normal in size CXR 04/21/25: TDC with tip in RA. Increase of perihilar and basilar opacities with volume loss, suggesting atelectasis, possible underlying edema/inflammation. Blunting of L CP angle, which may represent tiny effusion or pleural thickening. CT A/P 04/22/25: No abdominal or pelvic subcutaneous fluid collection of gas. Redemonstrated diffuse subcutaneous extensive abdominal wall collaterals, similar to prior CTA 10/17/2024. CT chest 04/22/25: extensive chest wall collaterals, few areas of skin ulceration, no areas of drainable fluid collection. Findings consistent with central venous stenoses. Few patchy groundglass opacities, may be related to mild pulm edema Assessment/Plan Problem List Assessment AND Plan Bleeding from open wound of chest wall, right, initial encounter Secondary hyperparathyroidism, renal (HCC) ESRD on hemodialysis (HCC) History of non-ST elevation myocardial infarction (NSTEMI) Vitamin D deficiency S/P MVR (mitral valve replacement) Supratherapeutic INR Atrial fibrillation (HCC) Acute on chronic blood loss anemia Adjustment disorder with depressed mood Acquired hypothyroidism Acquired stenosis of superior vena cava Venous collateral circulation Status post Maze operation for atrial fibrillation Ulcers, venous (HCC) Wounds, multiple Anemia due to multiple mechanisms Hemorrhage from open wound of left chest wall Open chest wound, right, sequela Open chest wound, left, sequela Back wound, unspecified laterality, sequela Open wound of abdomen Open wound of right thigh Bleeding from wound Difficult intravenous access Hypervolemia Skin ulcers (HCC) Vitamin C deficiency Vitamin A deficiency Vitamin B6 deficiency Second degree AV block, Mobitz type I HOSPITAL COURSE: Elia Weston is a 45 year old male with extensive PMH, significant for ESRD on HD (MWF) last session 04/18 (skipped Friday since he came to ED), CAD s/p CABG, severe MS s/p MVR on Warfarin (goal INR of 2.5-3.5), pAfib s/p maze procedure and RADHA clip and chronic chest/abdominal/back wounds (3 years) likely secondary to ischemia in context of SVC syndrome and multiple thrombosis, who presented to the ED with 1-day of left chronic chest wound bleeding. Admitted for management of bleeding, and on transfer to [facility], patient began to have significant bleeding from R chest wound. Continuous pressure was applied and bleeding stopped. Now s/p FFP and RBC transfusions as appropriate. Initially started on Vanc/Zosyn given elevated ESR/CRP and WBC, no infectious concern on further imaging with improved lactate WBC, so ABx were stopped. Dermatology and wound care consulted. IR consulted, planning for venoplasty given INR reversal. 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 Hx of hemorrhagic shock from bleeding abdominal wounds - presenting with acute worsening of pain and bleeding from wounds. Denies purulent discharge from wounds. - Leukocytosis + Elevated CRP 22.1 and ESR 133 + Elevated lactate on presentation; concerned for infected wounds/soft tissue infection. Started on IV vanc/zosyn, later d/janie due to low infectious concern (04/21-04/25) - On admission, acute rise in lactate in light of acute significant bleeding and drop in HGB (8.6 from 9.5 in ED) likely secondary to hypovolemia, also missed dialysis - CT venogram on 10/19/24 with b/l brachiocephalic stenosis w b/l subclavian vein occlusion, extensive venous collaterals - 10/22/24: Venoplasty completed by IR, removed L femoral TDC, exchanged R TDC - blood cultures 04/20/25 with NG5D x2 - AMET for hypotension 80/50, s/p 500 cc LR bolus, scheduled midodrine with improved repeat 102/63 - lactate 2.4 from 1.7, improved from 3.2 at admission. Completed 5d course of IV vanc/zosyn (04/21-04/25) - CT chest and CT A/P 04/22/25 with no drainable fluid collections, extensive chest collaterals - nutritional workup: B12 elevated, folate wnl, iron low 26, TIBC low 137, trans sat wnl, low vit D 22.9, zinc 69 wnl, low vit A 0.10 - 04/29/25: Venoplasty: completed by IR. 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 Right upper chest tunneled dialysis catheter was exchanged over a wire for a new on; ready for use PLAN: - IR consulted: > venoplasty 04/29/2025 - no complications - Derm consulted: > ongoing nutritional workup > discontinued clobetasol 0.05% ointment BID per derm, lesion over R scapula, try to simulate tx of PG and assess response > [facility] Derm f/u outpatient - continue vitamin D supplement 5000 unit(s), ascorbic acid 500mg/day, vit B6 50mg/day, vit A 10,000 units/day - wound care team consulted, appreciate care - pain control: tylenol 650 mg q6h prn and oxycodone 10 mg po q6h PRN. > IV fent for dressing changes as needed - plastic surgery consulted: > no indication for surgical intervention at this time - Cautious fluid resuscitation in light of acute bleeding and ESRD anuric on HD - Chest wound dressings to be changed every day - Bilateral Upper Extremity doppler 05/12: No evidence of patent arteriovenous fistulas bilaterally - Patient has uncontrolled pain from his chest wounds/bleeding - Updated Oxycodone to 15mg PO q4 PRN - Patient states he does not want Tylenol as it hasn't worked for him in the past - Patient has better pain control today than yesterday after the updated pain management regimen - Plastic surgery consulted due to ongoing wound bleeding overnight - Plastic surgery will reassess patient's wounds with pain optimization #Supratherapeutic INR #CAD s/p CABG #Severe MS s/p mechanical MVR on coumadin #Paroxysmal Afib s/p multiple DCCV s/p Maze procedure + RADHA clip (07/2021) - atrial fibrillation and severe mitral stenosis s/p mechanical mitral valve replacement with On-x valve (INR goal 2.5-3.5), Maze procedure and RAHDA clip on 08/21/2021. - Goal INR 2.5- 3.5; on warfarin 2.5 mg daily although patient not sure of dose, has been changed recently; last dose of warfarin Thursday 04/19 - INR elevated to 5.1 on admission, improved to 3.9 s/p 2u FFP 04/21 - possible etiology of supratherapeutic INR: warfarin dose (given patient not sure of home dose) vs malnutrition vs liver disease (less likely given AST/ALT wnl) - INR elevated again to 5.3, patient received po vitamin K 5 mg 04/25. Improved to 1.7 - INR 3.3 on 05/08 - INR of 5.2 on 05/10/25. Warfarin held today. PLAN: - given subtherapeutic INR and no intervention by plastic surgery planned, continue bridging to warfarin > goal INR 2.5 - 3.5, given mechanical valve. - Heparin discontinued 05/07 - Daily INR - Follows with Dr. Moreno (cardiology in [place]) for mgmt of Coumadin, will need follow-up outpatient - 1mg Vitamin K IV given to reverse Warfarin, in view of undergoing YONATHAN, with YNOATHAN lab protocol of INR<4. - INR 05/11/25: 2.0, 3 mg Warfarin given. - INR 2.1 05/12/2025 warfarin increased to 3.5 - INR: 2.3 05/13/25, warfarin 3 mg ordered - Spoke to patient for considering Heparin GTT inpatient, however, patient refuses - INR 2.6 on 05/15/25: Last dose of warfarin given: 3mg on 05/13/25. 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) - INR from 05/15/2025: 2.6 - 3mg Warfarin ordered PO 05/15/25 - INR 2.6 on 05/16/2025, repeat 3 mg warfarin PO - INR 3.5 on 05/17/25, half dose warfarin PO: 1.5mg today # Second-degree AV Block, Mobitz Type I - Patient having multiple episodes of bradycardia in the hospital with low blood pressures - Magnesium level 2.2 (05/05/25) - EKG (05/05/25) shows Second degree AV block, mobitz type 1 - EKG (05/06/25): shows sinus rhythm with 2nd degree AV shantell, mobitz type 1 - Transthoracic echocardiogram 05/06/25: EF: 60%, left ventricular hypertrophy, right ventricle normal, trace tricuspid valve regurgitation, trace pulmonic valve regurgitation, no pericardial effusion, aorta normal in size PLAN: - Cardiology team consulted, appreciate recs - Echocardiogram completed, results as above - Cardiology suggest EP consult given risk of progression of 2nd degree AVB, type 1 to higher degree AVB - EP consult on 05/09/25: Consult in process, signed note pending - EP Consult on 05/09/25 Recommendations: -Suggest YONATHAN to assess for possible endocarditis or other pathology - No current pacemaker indications, however, further investigation warranted due to rapid progression since Sep 2024. - YONATHAN ordered, NPO midnight - Patient was scheduled for YONATHAN on 05/13/25, however, due to hypotension during sedation attempt it was terminated. Plan to schedule YONATHAN with General Anesthesia, per Cardiology, earliest date is Friday05/17/25. - Patient scheduled for YONATHAN for 05/18/25, NPO midnight - Patient has daily EKGs and Telemetry to monitor as of 05/16/25 #Constipation - Last recorded bowel movement was on 05/14/25 PLAN: - Polyethylene glycol daily - Start Senna BID #ESRD on HD via Right TDC #Chronic Hypotension #Secondary 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 - iHD at [facility] [place] through R. Tunneled HD catheter MWF - Last dialysis session Friday04/18/2025; missed Fri session because he presented to [facility] ED - anuric at baseline per patient - Serum P=9.7 - completed HD 04/21, now on MWF - PTH elevated 578, Ca 8.3 low PLAN: - nephrology consulted: > continue MWF HD schedule > continue calcitriol MWF - Continue Sensipar, renvela with meals - continue home Midodrine 20mg every 8 hours - Dialysis today on 05/17/25 due to missed dose on 05/16/25 #Anemia of Chronic Disease/ESRD - Baseline hemoglobin - - iron studies 12/2024: iron 33, TIBC 156, Iron sat 21, ferritin 1327 - Hgb dropping iso bleeding wounds, as above. - received 1u pRBC 04/21, Hgb from 7.3 -> 7.7 post-transfusion - Hgb 6.9 on 04/22, s/p additional 2u pRBC with Hgb in ~8s PLAN: - Hgb goal >8, 8.4 (05/08/25). - chronic wound mgmt, as above - Iron levels of 36, TIBC- WNL, Ferritin high at 996 on 05/08/25, Replete Iron levels for ANABELLA, per Nephrology recommendation, however due to concerns for ongoing possible endocarditis, we will refrain from IV Iron use until further workup. #Code status - Full # Diet - renal # VTE PPx - warfarin # Dispo Planning - Pending clinical course, SW consulted for recent unemployment, c/f food insecurity #Adjustment disorder? #Low mood - Psychology consulted 05/10/25 - Music therapy - Art therapy - Healing services - Aroma therapy, spiritual services, and brief inpatient psychotherapy ordered per Psychology's recommendation, 05/11/25. Medication and Non-Pharmacologic VTE Prophylaxis/Anticoagulants Anticoagulant AND Antiplatelet Medications (From admission, onward) Start Dose Route Frequency Last Action Ordered Stop 04/21/25 0900 aspirin 81 mg chewable tab(s) 81 mg PO DAILY Given, 05/16 0832 04/21/25 0316 -- 04/10/25 1015 activity - mobilize patient (nj,oh) 04/04/25 0900 graduated compression stockings (nj,oh) VTE Prophylaxis: VTE prophylaxis appropriate Disposition: To be determined Plan of care discussed with Provider, RN, Patient Plan communicated to: Family Dae Miner MD PGY-1 [place], [phone] My Pager CONSULT PROG Observed: 05/17/2025 9:52 AM Status: COMPLETED Source: [facility] HNO ID: [id number] Author: ELVA PATEL APRN.FLORAL ASSOCIATE Service: Nephrology Author Type: Nurse Practitioner Type: Consult Progress Note Filed: 05/17/2025 14:06 Note Text: Department of Kidney Medicine Medical Specialties [place] [facility] NEPHROLOGY CONSULT SERVICE PROGRESS NOTE INTERVAL HISTORY: No acute events overnight noted requiring immediate intervention. Patient seen on IHD. Orders placed and confirmed in LEONEL Noted plan for YONATHAN tomorrow Admission weight: 115.6 kg (254 lb 13.6 oz) (Pt refusing to get on scale, states this was his last weight from dialysis on friday) Last recorded weight: 115.9 kg (255 lb 8.2 oz) Intake/Output Summary (Last 24 hours) at 05/17/2025 0659 Last data filed at 05/17/2025 0615 Gross per 24 hour Intake 422 ml Output 0 ml Net 422 ml MEDICATIONS: Current Facility-Administered Medications Medication Dose Route Frequency NaCl 0.9% iv flush bag 20 mL INTRAVENOUS PRN acetaminophen 650 mg tab(s) (TYLENOL) 650 mg ORAL q 6 H PRN aspirin 81 mg chewable tab(s) 81 mg ORAL DAILY midodrine 20 mg tab(s) (PROAMATINE) 20 mg ORAL q 8 H cinacalcet 60 mg tab(s) (SENSIPAR) 60 mg ORAL DAILY sevelamer carbonate 800 mg tab(s) (RENVELA) 800 mg ORAL TID w MEALS polyethylene glycol 3350 17 g packet 17 g ORAL DAILY calcitriol 1.5 mcg cap(s) (ROCALTROL) 1.5 mcg ORAL -WE LORazepam 0.25 mg tab(s) (ATIVAN) 0.25 mg ORAL DAILY PRN fentaNYL 50 mcg/mL 25 mcg injection (SUBLIMAZE) 25 mcg INTRAVENOUS DAILY PRN warfarin order for discharge OTHER PRN ascorbic acid 500 mg chewable tab(s) 500 mg ORAL DAILY pyridoxine (vitamin B6) 50 mg tab(s) (VITAMIN B6) 50 mg ORAL DAILY vitamin A 10,000 Units cap(s) (AQUASOL A) 10,000 Units ORAL DAILY senna 8.6 mg tab(s) (SENOKOT) 8.6 mg ORAL/FEEDING TUBE BID fentaNYL 50 mcg/mL 50 mcg injection (SUBLIMAZE) 50 mcg INTRAVENOUS DAILY PRN melatonin 3 mg tab(s) 3 mg ORAL/FEEDING TUBE AT BEDTIME PRN Darbepoetin [place] In Polysorbat 60 mcg injection (ARANESP) 60 mcg SUBCUTANEOUS q Wed lidocaine (PF) 10 mg/mL (1 %) 10-100 mg injection (XYLOCAINE) 1-10 mL INTRADERMAL DIRECTED PRN oxyCODONE IR 15 mg tab(s) (ROXICODONE) 15 mg ORAL q 4 H PRN busPIRone 5 mg tab(s) (BUSPAR) 5 mg ORAL DAILY ALLERGIES: Gabapentin and Trazodone VITAL SIGNS: BP (!) 99/41 Pulse 96 Temp 36.4 ?C (97.5 ?F) (Oral) Resp 18 Ht 177 cm (5' 9.69) Wt 115.9 kg (255 lb 8.2 oz) SpO2 94% BMI 36.99 kg/m? PHYSICAL EXAM: GENERAL: sleeping but awakens to voice, cooperative, lying in bed SKIN: Skin color, texture, turgor normal. No rashes or lesions. HEENT: normocephalic, moist oral mucosa NECK: no JVD, masses or bruits LUNGS: Good diaphragmatic excursion and normal respiratory effort. CARDIAC: RRR ABDOMEN: soft, EXTREMITIES: BLE edema significant NEURO: AOx3, normal speech, muscle strength grossly intact ACCESS: RIJ TDC accessed with normal findings Lines, Drains, and Airways Line Duration Peripheral 04/26/25 2100 [facility] Right Forearm 20 Gauge 20 days Dialysis / Apheresis Double Lumen 04/29/25 1005 [facility] Tunneled Right Internal Jugular 17 days Labs: Recent Labs 05/17/25 0715 05/16/25 0155 05/15/25 0154 05/14/25 1838 WBC 5.76 7.00 6.55 -- HB 7.4* 7.2* 7.5* -- HCT 24.0* 24.9* 25.5* -- PLT 185 198 209 -- INR 3.5* 2.6* 2.6* 2.6* NA -- 138 -- 140 K -- 5.2* -- 5.1 CHLOR -- 98 -- 98 CO2 -- 24 -- 27 ANION -- 16* -- 15 BUN -- 24 -- 15 CREAT -- 7.82* -- 5.67* GLUC -- 87 -- 75 CA -- 7.9* -- 8.1* Recent Labs 05/16/25 0155 05/14/25 1838 TPROT 7.7 7.7 ALB 3.7* 3.8* ALT 13 13 AST 17 20 ALKPHOS 156* 163* TBILI 0.3 0.4 ASSESSMENT: Mr. 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 Labs on presentation significant for elevated lactic acid, leukocytosis, anemia and supratherapeutic INR. Of note, his previous admission 10/12/2024-11/02/2024 was also for pain and bleeding of the wounds/skin ulcers. Biopsy was consistent with reactive ischemic changes at the time without features of Polyderma Gangrenosum or calciphylaxis. Patient was admitted under general internal medicine team for further management. Course c/b new 2nd degree AV charlie stinson type 1 - Plan for YONATHAN Nephrology consulted for ESR management. 1.ESRD -Etiology: HTN Renal Biopsy 2005 for renal failure of undetermined etiology. 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 using an angioplasty balloon per IR 2.Electrolytes/acid-base: -hyperkalemia - 2 K bath -modulating with DRYWALL SANDER 3.Hypertension/Volume Status: -BP 126/52 -hypervolemia on exam significant -Midodrine 20mg q8h -Pre-weight: 115kg EDW: 120.5 kg (unsure if bedweight) -Targeting 3L UF with crit line assist 4.Anemia of CKD: -Hgb below ESRD goal -Iron Stores 05/08: ferritin 996 TSAT 15.4- deferring IV iron with IE work up -ANABELLA: Weekly Aranesp 5.Secondary renal hyperparathyroidism: -Calcitriol 1.5mcg TIW, Sensipar 60mg daily, Revela 800mg TID with meals PLAN: -IHD today 4.5 hours, 2K bath, 3L UF, flushes due to avoiding heparin , 400/600 -Next IHD Friday after YONATHAN to resume MWF schedule -EDW 114kg -Weekly Aranesp -Calcitriol, Sensipar and Renvela Standard ESRD recommendations and precautions: - Strict IANDOs and Daily weight - Consider a RENAL Diet for HD patients - Fluid restriction < 1 L - Start Nephrocap or other renal multivitamin to replace water-soluble vitamins lost during dialysis - Avoid Lovenox, Gadolinium (MRI contrast), Demerol, Morphine, K-containing IVF, Mg- or Phos- containing enemas -Dose meds eGFR<10 Outpatient dialysis disposition plan: contact [phone] and ask to speak with the director of front office as needed for assistance with post-discharge arrangements. Please DO NOT schedule patient for a nephrology follow up appointment. Kidney care will be provided by the primary data warehousing engineer at their dialysis unit upon hospital discharge. Elva Patel APRN.FLORAL ASSOCIATE Nephrology and Hypertension [facility] May 17, 2025 9:52 AM PAGER # [phone] Disclosures: Parts of the current progress note may have been copied from a previous note. FOR AFTER HOUR CONCERNS BETWEEN 5PM - 7AM CONTACT ON-CALL NEPHROLOGY FELLOW [phone] PT PNL PPP Collected: 05/17/2025 7:15 AM Status: F Source: [facility] Order Comment: Specimen Type : BLOOD SPECIMEN Ordering Facility: [facility] Address: [address] [place] [address] TYPE CODE TESTS RESULT OUT OF RANGE REFERENCE UNITS LAB 5902-2(LOINC) Prothrombin time 34.7 High 9.7-13.0 sec LAB 6301-6(LOINC) INR PPP 3.5 High 0.9-1.3 Result Comment: Vitamin K An tagonist (VKA) Therapeutic Range: INR 2 to 3 (Target INR of 2.5) Note: For patients treated with VKA drugs, such as warfarin, the [place] College [employer]icians 2012 Guideline recommends a therapeutic INR range of 2 to 3 (target INR of 2.5). This recommendation includes high-risk patients with antiphospholipid syndrome with previous arterial or venous thromboembolism, current-generation mechanical or bioprosthetic aortic heart valve replacement. Note: Patients with mechanical aortic valve replacement and additional risk factors for thromboembolic events (atrial fibrillation, previous thromboembolism, LV dysfunction, hypercoagulable conditions) or an older generation mechanical AVR (i.e., ball in-Cage) or any mechanical MVR should have a INR therapeutic range of 2.5 to 3.5 (target INR of 3). Ranjit GH, et al. Chest 2012, 141:7S-47S Kevin RA, et al. [facility] 2017, 70: 252-289 Performed By: #### [id number] # ### [facility] CLIA [id number] [address] [place] [address] [place] COMP METAB 2000 PNL SERPL Collected: 7:15 AM Status: F Source: [facility] Order Comment: Specimen Type : BLOOD SPECIMEN Ordering Facility: [facility] Address: [address] [place], [place] [id number] TYPE CODE TESTS RESULT OUT OF RANGE REFERENCE UNITS LAB 2885-2(LOINC) Prot SerPl-mCnc 7.2 6.3-8.0 g/dL LAB 1751-7(LOINC) Albumin SerPl-mCnc 3.6 Low 3.9-4.9 g/dL LAB 00166-7(LOINC) Calcium SerPl-mCnc 7.2 Low 8.5-10.2 mg/dL LAB 1975-2(LOINC) Bilirub SerPl-mCnc 0.3 0.2-1.3 mg/dL LAB 6768-6(LOINC) ALP SerPl-cCnc 146 High 38-113 U/L LAB 1920-8(LOINC) AST SerPl-cCnc 17 14-40 U/L LAB 1742-6(LOINC) ALT SerPl-cCnc 9 Low 10-54 U/L LAB 2345-7(LOINC) Glucose SerPl-mCnc 77 74-99 mg/dL Result Comment: The [place] Diabetes Association (ADA) provides guidance for cutoff values for fasting glucose and random glucose. The ADA defines fasting as no caloric intake for at least 8 hours. Fasting plasma glucose results between 100 to 125 mg/dL indicate increased risk for diabetes (prediabetes). Fasting plasma glucose results greater than or equal to 126 mg/dL meet the criteria for diagnosis of diabetes. In the absence of unequivocal hyperglycemia, results should be confirmed by repeat testing. In a patient with classic symptoms of hyperglycemia or hyperglycemic crisis, random plasma glucose results greater than or equal to 200 mg/dL meet the criteria for diagnosis of diabetes. Reference: Standards of Medical Care in Diabetes 2016, [place] Diabetes Association. Diabetes Care. 2016.39(Suppl 1). LAB 3094-0(LOINC) BUN SerPl-mCnc 34 High 9-24 mg/dL LAB 2160-0(LOINC) Creat SerPl-mCnc 9.50 High 0.73-1.22 mg/dL LAB 2951-2(LOINC) Sodium SerPl-sCnc 138 136-144 mmol/L LAB 2823-3(LOINC) Potassium SerPl-sCnc 5.7 High 3.7-5.1 mmol/L LAB 2075-0(LOINC) Chloride SerPl-sCnc 99 98-107 mmol/L LAB 8-9(LOINC) CO2 SerPl-sCnc 22 22-30 mmol/L LAB 51242-6(LOINC) Anion Gap SerPl-sCnc 17 High 8-15 mmol/L LAB 17399-5(LOINC) eGFRcr SerPlBld CKD-EPI 2020 6 Low >=60 mL/min/1. 73m??? Result Comment: Estimated Gl omerular Filtration Rate (eGFR) is calculated using the 2020 CKD-EPI creatinine equation. This equation utilizes serum creatinine, sex, and age as parameters. The creatinine assay has traceable calibration to isotope dilution-mass spectrometry. Refer to KDIGO guidelines for clinical interpretation. In patients with unstable renal function, e.g. those with acute kidney injury, the eGFR may not accurately reflect actual GFR. Performed By: #### 74004-6, 96304-2 #### [facility] CLIA [id number] [address] [place] [address] MAGNESIUM SERPL-MCNC Collected: 05/17/2025 7:15 AM S tatus: F Source: [facility] Comment: Specimen Type : BLOOD SPECIMEN Ordering Facility: [facility] Address: [address] [place] [address] TYPE CODE TESTS RESULT OUT OF RANGE REFERENCE UNITS LAB 00702-3([facility]) Magnesium SerPl-mCnc 2.5 High 1.7-2.3 mg/dL Performed By: #### 46470-3, 40565-6 #### [facility] CLIA [id number] [address] [place] [address] CBC PNL BLD AUTO Collected: 7:15 AM Status: F Source: [facility] Comment: Specimen Type : BLOOD SPECIMEN Ordering Facility: [facility] Address: [address] [place] [address] TYPE CODE TESTS RESULT OUT OF RANGE REFERENCE UNITS LAB 6690-2(LOINC) WBC # Bld Auto 5.76 3.70-11.00 k/uL LAB 789-8(LOINC) RBC # Bld Auto 2.61 Low 4.20-6.00 m/uL LAB 718-7(LOINC) Hgb Bld-mCnc 7.4 Low 13.0-17.0 g/dL LAB 4544-3(LOINC) Hct VFr Bld Auto 24.0 Low 39.0-51.0 % LAB 787-2(LOINC) MCV RBC Auto 92.0 80.0-100.0 fL LAB 785-6(LOINC) MCH RBC Qn Auto 28.4 26.0-34.0 pg LAB 786-4(LOINC) MCHC RBC Auto-mCnc 30.8 30.5-36.0 g/dL LAB 00848-4(LOINC) RDW RBC-Rto 20.5 High 11.5-15.0 % LAB 777-3([facility]) Platelet # Bld Auto 185 150-400 k/uL LAB 65666-1([facility]) PMV Bld Auto 11.2 9.0-12.7 fL LAB 771-6([facility]) nRBC # Bld Auto <0.01 <0.01 k/uL Performed By: #### 07456-4 # ### [facility] CLIA [id number] [address] [place] [address] CONSULT PROG Observed: 05/16/2025 5:59 PM Status: COMPLETED Source: [facility] HNO ID: [id number] Author: CHAY QURESHI MD Service: Electrophysiology Author Type: Fellow Type: Consult Progress Note Filed: 05/16/2025 17:59 Note Text: [facility]LECTR[facility]Y CONSULT PROGRESS NOTE Elia Weston [id number] PRIMARY SERVICE: Internal Medicine CONSULTING SERVICE: Electrophysiology DATE OF ADMISSION: 04/20/2025 REASON FOR CONSULT: AV block IMPRESSION AND RECOMMENDATIONS: 45M with ESRD on HD, 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 The EP service are now consulted for rhythm management. - 13 Apr: Awaiting YONATHAN. - 14 Apr: Awaiting YONATHAN. ECG with DE continuing to prolong (~450 ms). - 15 Apr: Unable to undergo YONATHAN with conscious sedation (required a lot of sedation to be comfortable resulting in hypotension). - 16 Apr: ECG demonstrates DE ~430 ms - 18 Apr: Discussed EP plan in detail (YONATHAN to assess for IE, if no IE leadless PPM; if IE, multidisciplinary treatment including possible OHS). Recommendations: - Notable DE prolongation this admission (~400 ms) as compared to prior (~220 ms in Sep 2024). Unknown aetiology and largely asymptomatic, though given infectious risk we must be suspicious for IE. - BCX x2 from admission (20 April) negative. - Awaiting YONATHAN to better assess for IE. Unable to be performed under conscious sedation (hypotension), awaiting YONATHAN with anaesthesia tomorrow. - Please obtain 12-lead ECG daily to reassess DE interval - If there is no evidence of IE, given unexplained DE prolongation and degeneration of conduction, shall likely plan for PPM before discharge (leadless device would be best in this patient with difficult vascular access and high infectious risk) - The EP Consult service shall continue to follow with you Sandhya Qureshi MD Fellow in Clinical Cardiac Electrophysiology, PGY-8 Section of Cardiac Pacing and Electrophysiology Heart, Vascular and Thoracic [place] [facility] NURSING PROG Observed: 05/16/2025 3:17 PM Status: COMPLETED Source: [facility] HNO ID: [id number] Author: SOFIE LARA RN Service: Nursing Author Type: Registered Nurse Type: Nursing Progress Note Filed: 05/16/2025 15:19 Note Text: Other: Pt refused to go to dialysis 2x today. aware Pt refused dressing changes per nurse. Educated pt on importance of changing dressings daily but still refused 1430 Pt had plastics resident at bedside and refused to have his dressing changed per plastics as well Per plastics they will plan to get him something pre dressing change and do it early before dialysis PROGRESS Observed: 05/16/2025 2:47 PM Status: COMPLETED Source: [facility] HNO ID: [id number] Author: AB SIEGEL DO Service: Plastic Surgery Author Type: Resident Type: Progress Notes Filed: 05/16/2025 14:55 Note Text: PLASTIC SURGERY PROGRESS NOTE SERVICE DATE: 05/16/2025 SERVICE TIME: 2:47 PM Post-op Day: 17 Days Post-Op Subjective INTERVAL HISTORY: Since last seen by PRS, pt has had continued bleeding from wounds and had a rapid response team called on him this weekend. Bleeding has since been controlled but PRS was consulted again for re evaluation. Pt is resting in bed and is very anxious. He is refusing dialysis today and will go tomorrow. He does not want to change his dressings today as he is afraid he will bleed again from his wounds. Objective PHYSICAL EXAM: BP 117/65 Pulse 99 Temp (Src) 97.5 (Oral) Resp 16 Ht 5' 9.685 (1.77m) Wt 255 lb 8.2 oz (115.9kg) SpO2 100% BMI 36.99 kg/(m2). O2 Therapy: Room Air Gen: AANDOx3 Pulm: room air, regular respiratory rate wound images reviewed in epic- full thickness wounds to chest and back. No evidence of acute infection I/Os: Intake/Output Summary (Last 24 hours) at 05/16/2025 1447 Last data filed at 05/16/2025 1400 Gross per 24 hour Intake 880 ml Output 0 ml Net 880 ml Output by Drain (mL) 05/14/25 0700 - 05/14/25 1459 05/14/25 1500 - 05/14/25 2259 05/14/25 2300 - 05/15/25 0659 05/15/25 0700 - 05/15/25 1459 05/15/25 1500 - 05/15/25 2259 05/15/25 2300 - 05/16/25 0659 05/16/25 0700 - 05/16/25 1447 Patient has no LDAs of requested type attached. LABS: CBC Recent Labs 05/16/25 0155 05/15/25 0154 05/14/25 1310 WBC 7.00 6.55 4.75 HB 7.2* 7.5* 8.0* HCT 24.9* 25.5* 26.2* PLT 198 209 148* BMP, Mg, Phos Recent Labs 05/16/25 0155 05/14/25 1838 NA 138 140 K 5.2* 5.1 CHLOR 98 98 CO2 24 27 BUN 24 15 CREAT 7.82* 5.67* GLUC 87 75 CA 7.9* 8.1* Medication and Non-Pharmacologic VTE Prophylaxis/Anticoagulants Anticoagulant AND Antiplatelet Medications (From admission, onward) Start Dose Route Frequency Last Action Ordered Stop 05/16/25 1700 warfarin 3 mg tab(s) (COUMADIN) 3 mg PO/FT ONCE - WARFARIN Ordered 05/16/25 0730 05/17/25 0459 04/21/25 0900 aspirin 81 mg chewable tab(s) 81 mg PO DAILY Given, 05/16 0832 04/21/25 0316 -- Assessment/Plan 45 year old male [facility], significant for ESRD on HD (MWF) last session 04/18 (skipped Friday since he came to ED), CAD s/p CABG, severe MS s/p MVR on Warfarin, pAfib s/p maze procedure and RADHA clip and chronic chest/abdominal/back wounds (3 years) likely secondary to ischemia in context of SVC syndrome and multiple thrombosis, who presented to the ED with 1-day of left chronic chest wound bleeding. Admitted for management of bleeding - dialysis tomorrow - in consideration of wound care would evaluate need/dosage of all anticoagulation and antiplatelets at this time - can consider DDAVP to possible help with the chronic ooze from wound edges given pt is ESRD/chronically ill - planned for YONATHAN - NPO at midnight - continue local wound care: surgicel is placed bedside for next wound change - will eval pt in am 05/17 with an anxiolytic present to help with the wound change - local wound care is best in this pts chronic disease as a new larger wound from debridement may lead to a larger wound not capable of healing - appreciate wound care recs - please call with questions - if urgent bleeding requiring rapid response team after 5 pm or on weekends, defer to ACS surgery for acute management of wound care SIGNATURE: Ab Siegel DO PATIENT NAME: Elia Weston DATE: May 16, 2025 TIME: 2:47 PM After 6PM and on weekends, please page [phone] (Plastic Surgery on-call - [facility]), otherwise contact above provider. CONSULT PROG Observed: 05/16/2025 2:45 PM Status: COMPLETED Source: [facility] ID: [id number] Author: BOLA GARVIN, PhD Service: Psychology Author Type: Fellow Type: Consult Progress Note Filed: 05/17/2025 08:56 Note Text: Attestation signed by Bola Garvin, PhD at 05/17/2025 8:56 AM STAFF ATTESTATION This service has been performed by a fellow under the direction of myself as supervising psychologist. I was readily available to furnish assistance and direction throughout the encounter. I agree with the fellow's findings and plan as documented and have discussed the case and management of the patient's care with the fellow. Bola Garvin, Ph.D. Clinical Health Psychologist CL PSYCHOLOGY PROGRESS NOTE ADMISSION DATE: 04/20/2025 ATTENDING PROVIDER: Lusi Cui MD PRIMARY CARE PROVIDER: No primary care provider on file. DATE: 05/16/2025 TIME: 2:00P-2:40P Patient referred for possible adjustment disorder. Elia Weston was seen bedside for 40 minutes by Jenny Go, PhD. TREATMENT SUMMARY: Pt seen sitting up in chair, awake and alert on arrival. Pt shared that he has been feeling frozen and overwhelmed since Friday, culminating in moment of refusing dialysis treatment today. He shared that multiple factors contributed to feeling frozen today, a feeling he has not had before, that is unfamiliar. He reported that these factors included lack of sleep, unpredictability and frustration re: wound bleeding, psychosocial stress (learned that electricity was shut off at home), and feeling pressure to make decisions constantly, including the decision to attend dialysis. He reflected that this is the first time [he] has missed dialysis in 20 years and expressed a desire to gain control, when he feels like he is losing control in life d/t health factors. Reports gospel music, reading the bible, visits from supportive services, and social and familial supports continue to be sources of adaptive coping and galina this hospitalization. Session today focused on validation and supportive therapy, psychoeducation re: fostering somatic awareness of anxiety (anxiety thermometer, sympathetic nervous system activation symptoms), and in vivo practice of grounding technique -4-3-2-1. Pt expressed gratitude and benefit from today's visit. Provided pt with packet of handouts on adaptive coping for anxiety in hospital for his review and practice. Pt was open to discussion and interventions today. Psychology team will continue to follow. INTERVENTIONS: Validation and Support Motivational Interviewing Cognitive Restructuring Fostering Coping Efficacy Fostering Presence: Grounding (5-4-3-2-1) MENTAL STATUS EXAM: - Speech was within normal limits with regard to rate, tone and volume. - Mood was reported as overwhelmed. - Affect was appropriate. - Impulse control was fair. - Attention was good. - Thought-cognitive: There is no evidence of a formal thought disorder. - Thought processing: Goal directed, linear and organized - Suicidal or homicidal ideation: None expressed or evidenced - Intelligence impression: Average - Judgment: Appropriate - Insight: Appropriate DIAGNOSES: Adjustment disorder with mixed anxiety and depressed mood R/O MDE ASSESSMENT/PLAN: Elia Weston is a 45-year-old male with past medical history of end-stage renal disease (goes to dialysis Mondays, Wednesdays, Fridays), hypertension, A-fib on Coumadin, CVA, mitral valve stenosis status post mechanical valve placement, SVC stenosis, variceal induced wounds presents to the emergency department for pain to wound on left chest. Patient reports he had wounds to his chest and back for 3 years. For 1 week he has had increased pain and yellow drainage to the wound to the left chest. He noticed it was bleeding this morning. Denies fever, chills, nausea, vomiting. Last session of dialysis was 2 days ago. Denies smoking, alcohol use, illicit drug use. Psychology consulted for possible adjustment disorder. Pt seen today for follow up psychology visit. Pt reports feelings of overwhelm and low mood associated with feelings of loss of control over day to day activities iso health factors including unpredictable wound bleeding. The patient presents with complex medical history and voices distress related to deteriorated health over the course of the past 1.5 years. He denies any significant prior psychiatric history but endorses mild depressive symptoms correlating with exacerbations to physical health decline as well as newer onset worry related to impact on his family life. He denied current symptoms of SI or panic attacks. At this time, symptoms most consistent with adjustment disorder with mixed anxiety and depressed mood. Suspect that exacerbations in physical health symptoms, prolonged hospitalization, and reduced socialization with loved ones may contribute to mood and anxiety symptoms at this time. Session today focused on validation and supportive therapy, psychoeducation re: fostering somatic awareness of anxiety (anxiety thermometer, sympathetic nervous system activation symptoms), and in vivo practice of grounding technique 5-4-3-2-1. Pt expressed gratitude and benefit from today's visit. Provided pt with packet of handouts on adaptive coping for anxiety in hospital for his review and practice. Pt was open to discussion and interventions today. Psychology team will continue to follow. RECOMMENDATIONS: - The patient may benefit from brief psychotherapy while hospitalized to promote use of adaptive strategies to assist with mood symptoms within the context of medical illness and current hospitalization. CL psychology will continue to follow while hospitalized. -Pt reports feelings of overwhelm and freezing in situations where multiple decisions/stressors are present at once. In moments of panic or overwhelm, pt is encouraged to: 1. Continue to utilize his anxiety thermometer worksheet to build somatic awareness of anxiety 2. Ask for PRN anxiety medication to assist in anxiety reduction at level of 5 or higher on thermometer 3. Utilize grounding technique 5-4-3-2-1 to re-center: 5 things you see, 4 things you feel, 3 things you can touch, 2 things you smell, 1 thing you taste 4. Engage in activities with the potential to increase positive emotions, including art and music therapy, working with PT/OT as able, watching television/listening to music, visiting with/calling family members, reading the Bible, watching TikTok videos - Given history of trauma, ensuring pt perceives safety in medical environment is of the utmost importance. Recommend trauma informed care practices including: - limiting the number of caregivers in the room at one time - avoid clustering around patient's bed; provide space and sit at bedside possible - keep providers as consistent as possible - speaking softly, maintaining calm presence at all times, with non-threatening body language - move slowly and ask before touching pt and narrate actions - validating and acknowledging patient emotions - offer patient choice and control with care by providing options whenever possible - Reducing noise and stimulation in the room - Appreciate ongoing support from: Art Therapy, Music Therapy, Aromatherapy, and Radio News Anchor/Spiritual Services. - Following d/c the patient may benefit from outpatient psychotherapy follow-up ongoing psychology support. Resources provided to patient. During weekdays ([phone]): Please page Janak Landry PsyD for any questions or concerns. After 1600, weekends, AND holidays: In case of any acute psychiatric or safety concerns, please page Psychiatry [place] [phone] SIGNATURE: Jenny Go, PhD PATIENT NAME: Elia Weston DATE: May 16, 2025 TIME: 5:25 PM PSYCHOLOGY PAGER: [phone] [facility] Observed: 05/16/2025 2:38 PM Status: COMPLETED Source: [facility] ID: [id number] Author: MARKO BARNHART Art Therapist Service: Art Therapy Author Type: Therapist Type: Allied Health Filed: 05/16/2025 14:46 Note Text: ART THERAPY NOTE SERVICE DATE: 05/16/2025 SERVICE TIME: 2:15 Referred By: Resident/Fellow Reason for Referral: Depressed mood COMMENTS: Pt was unavailable upon attempt, Psychology was bedside. Will follow up as able. SIGNATURE: Nathan Eng PATIENT NAME: Elia Weston DATE: May 16, 2025 TIME: 2:38 PM PAGER/CONTACT #: [phone] PLAN OF CARE Observed: 05/16/2025 2:10 PM Status: COMPLETED Source: [facility] ID: [id number] Author: LELA SOLIMAN APRN.CNP Service: Nephrology Author Type: Nurse Practitioner Type: Plan of Care Filed: 05/16/2025 14:13 Note Text: [facility] [place] CONSULT PLAN OF CARE NOTE NEPHROLOGY Q6 SERVICE SERVICE DATE: 05/16/2025 SERVICE TIME: 2:11 PM SUBJECTIVE INTERVAL HISTORY: - Multiple requests made for patient to come for DRYWALL SANDER therapy today -Patient continues to refuse HD today -Electrolytes stable at this time respiratory status stable on RA -Primary team notified of patient's ongoing refusal today for DRYWALL SANDER -IF patient is needing urgent DRYWALL SANDER overnight he will need to be transferred to ICU -Patient currently scheduled for 1st round HD tomorrow MEDICATIONS: Current Facility-Administered Medications Medication Dose Route Frequency NaCl 0.9% iv flush bag 20 mL INTRAVENOUS PRN acetaminophen 650 mg tab(s) (TYLENOL) 650 mg ORAL q 6 H PRN aspirin 81 mg chewable tab(s) 81 mg ORAL DAILY midodrine 20 mg tab(s) (PROAMATINE) 20 mg ORAL q 8 H cinacalcet 60 mg tab(s) (SENSIPAR) 60 mg ORAL DAILY sevelamer carbonate 800 mg tab(s) (RENVELA) 800 mg ORAL TID w MEALS polyethylene glycol 3350 17 g packet 17 g ORAL DAILY calcitriol 1.5 mcg cap(s) (ROCALTROL) 1.5 mcg ORAL MO-WE- LORazepam 0.25 mg tab(s) (ATIVAN) 0.25 mg ORAL DAILY PRN fentaNYL 50 mcg/mL 25 mcg injection (SUBLIMAZE) 25 mcg INTRAVENOUS DAILY PRN warfarin order for discharge OTHER PRN ascorbic acid 500 mg chewable tab(s) 500 mg ORAL DAILY pyridoxine (vitamin B6) 50 mg tab(s) (VITAMIN B6) 50 mg ORAL DAILY vitamin A 10,000 Units cap(s) (AQUASOL A) 10,000 Units ORAL DAILY senna 8.6 mg tab(s) (SENOKOT) 8.6 mg ORAL/FEEDING TUBE BID fentaNYL 50 mcg/mL 50 mcg injection (SUBLIMAZE) 50 mcg INTRAVENOUS DAILY PRN melatonin 3 mg tab(s) 3 mg ORAL/FEEDING TUBE AT BEDTIME PRN Darbepoetin [place] In Polysorbat 60 mcg injection (ARANESP) 60 mcg SUBCUTANEOUS q Wed lidocaine (PF) 10 mg/mL (1 %) 10-100 mg injection (XYLOCAINE) 1-10 mL INTRADERMAL DIRECTED PRN oxyCODONE IR 15 mg tab(s) (ROXICODONE) 15 mg ORAL q 4 H PRN warfarin 3 mg tab(s) (COUMADIN) 3 mg ORAL/FEEDING TUBE ONCE - WARFARIN OBJECTIVE PHYSICAL EXAM: BP 101/56 Pulse 93 Temp 36.4 ?C (97.5 ?F) (Oral) Resp 16 Ht 177 cm (5' 9.69) Wt 115.9 kg (255 lb 8.2 oz) SpO2 98% BMI 36.99 kg/m? Intake/Output Summary (Last 24 hours) at 05/16/2025 1411 Last data filed at 05/16/2025 0552 Gross per 24 hour Intake 880 ml Output 0 ml Net 880 ml DATA: Diagnostic tests reviewed for today's visit: Recent Labs 05/16/25 0155 05/14/25 1838 05/11/25 2208 05/10/25 0342 05/10/25 0341 NA 138 140 136 137 137 K 5.2* 5.1 4.4 5.0 5.0 CHLOR 98 98 96* 96* 96* CO2 24 27 27 28 26 BUN 24 15 11 16 16 CREAT 7.82* 5.67* 4.36* 5.45* 5.54* GLUC 87 75 91 79 78 ANION 16* 15 13 13 15 CA 7.9* 8.1* 8.3* 8.2* 8.2* P -- -- -- 3.5 3.5 Recent Labs 05/16/25 0155 05/15/25 0154 05/14/25 1310 WBC 7.00 6.55 4.75 HB 7.2* 7.5* 8.0* HCT 24.9* 25.5* 26.2* PLT 198 209 148* Standard ESRD recommendations and precautions: - Strict IANDOs and Daily weight - Consider a RENAL Diet for HD patients - Fluid restriction < 1 L - Start Nephrocap or other renal multivitamin to replace water-soluble vitamins lost during dialysis - Avoid Lovenox, Demerol, Morphine, K-containing IVF, Mg- or Phos- containing enemas - Dose meds GFR 10 ml/min Outpatient dialysis disposition plan: contact [phone] and ask to speak with the director of front office as needed for assistance with post-discharge arrangements. Please DO NOT schedule patient for a nephrology follow up appointment. Kidney care will be provided by the primary data warehousing engineer at their dialysis unit upon hospital discharge. SIGNATURE: Lela Soliman APRN.MIKI PATIENT NAME: Elia Weston DATE: May 16, 2025 TIME: 2:11 PM FOR AFTER HOUR CONCERNS BETWEEN 5PM - 7AM CONTACT ON-CALL NEPHROLOGY FELLOW [phone] Disclosures: Parts of the current progress note may have been copied from a previous note. [facility] Observed: 05/16/2025 2:08 PM Status: COMPLETED Source: [facility] ID: [id number] Author: SHANNON HOOD Music Therapist Service: Music Therapy Author Type: Therapist Type: Allied Health Filed: 05/16/2025 14:10 Note Text: MUSIC THERAPY NOTE SERVICE DATE: 05/16/2025 SERVICE TIME: 11:07 AM Referred By: Other: See Comment (resident/fellow) Reason for Referral: Coping Skills, Anxiety COMMENTS: Will Continue to Follow Music therapy visit attempted on this date x2. Pt initially requested therapist come back later; at later attempt he was unavailable due to being with another service/provider (Psychology). Briefly spoke with pt about following up on Friday to play the keyboard. Music therapy will follow up as able. SIGNATURE: Shannon Hood Music Therapist PATIENT NAME: Elia Weston DATE: May 16, 2025 TIME: 2:08 PM PAGER/CONTACT #: [phone] TYPE + SCREEN Collected: 05/16/2025 12:03 PM Status: F Source: [facility] Order Comment: Specimen Type : BLOOD SPECIMEN Ordering Facility: [facility] Address: [address] [place] [address] TYPE CODE TESTS RESULT OUT OF RANGE REFERENCE UNITS LAB [id number] ABO B LAB [id number] RH Positive LAB [id number] ANTIBODY SCREEN Negative LAB [id number] TYPE AND SCREEN EXPIRATION 05/19/2025 23:59 Performed By: #### TSCR #### CC MAIN BLOOD BANK [facility] [id number] [address] [place] [address] CASE MANAGEM Observed: 05/16/2025 10:41 AM Status: COMPLETED Source: [facility] HNO ID: [id number] Author: MARIA T MARINA LSW Service: Care Management Author Type: Ppa Teacher Type: Care Mgt Progress Note Filed: 05/16/2025 12:43 Note Text: CARE MANAGEMENT PROGRESS NOTE SERVICE DATE: 05/16/2025 SERVICE TIME: 10:41 AM LOS: 25 days Post-Acute Discharge Planning Patient Goal(s): Be able to go home, General wellness [place] of Choice Explained: [place] of Choice Given: Yes Discharge Planning Participant(s): Patient Anticipated # of Days Until Discharge: (TBD) Transport at Discharge: Transportation Arrangements: Car Needs Prior to Discharge: Needs Prior to Discharge: To Be Determined Post-Acute Discharge Plan: Unable to arrange HC; pt does not have a PCP. Plan for dc home with self care. Pt plans to drive home. UPDATE 12:41PM: Form for AEP Power re-faxed to correct fax number- . Confirmation of fax and completed form returned to pt's bedside table. SIGNATURE: CANDY Gilmore PATIENT NAME: Elia Weston DATE: May 16, 2025 TIME: 10:41 AM PROGRESS Observed: 05/16/2025 7:26 AM Status: COMPLETED Source: [facility] HNO ID: [id number] Author: LUIS CUI MD Service: General Internal Medicine Author Type: Resident Type: Progress Notes Filed: 05/16/2025 22:11 Note Text: Attestation signed by Luis Cui MD at 05/16/2025 10:11 PM TEACHING PHYSICIAN NOTE OF PERSONAL INVOLVEMENT IN CARE I have reviewed the Progress Note obtained and documented by Resident and I personally participated in the mendoza components. I have discussed the case and management of the patient's care with them. The following comments revise or confirm relevant mendoza components of the note. 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 Managed with INR reversal, transfusions, venoplasty, and wound care. Completed antibiotics with no infection found. Pain controlled with opioids. Warfarin held and restarted per INR. Cardiology and EP involved for Mobitz I AV block; YONATHAN rescheduled after initial hypotension. Continued close monitoring and multidisciplinary care ongoing. Greenhouse Manager:Prolonged Service: I personally spent greater than 30 minutes involved in patient care and coordination of services for this patient Luis Cui MD Authenticated by responsible provider. [facility] MEDICINE PROGRESS NOTE SERVICE DATE: 05/16/2025 SERVICE TIME: 7:26 AM Hospital Medicine/Primary Attending: Luis Cui MD NIGHT AND WEEKEND COVERAGE: [facility] COVERAGE: Nights: [phone], please page Team Jeffrey Haq; overnight/admitting pager [phone] Subjective Chief Complaint: Pain and chronic chest wound bleeding INTERVAL HPI: Mr. 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 Patient was hospitalized in September 2024 to October 2024 for pain and bleeding from the wounds. Patient was seen by dermatology back then for his skin ulcers. Biopsy performed and was most c/w reactive ischemic changes without features of Pyoderma Gangrenosum or Calciphylaxis. Now, plan for venoplasty with IR pending improvement in INR. Dermatology consulted and underwent steroid trial at wound edge. He was bridged to warfarin while here given his history of mechanical valve. Stay further complicated by new bradycardia, found to have Mobitz 1 second-degree AV block for which cardiology/EP was consulted. Overnight Events: Patient had soaking of his wounds overnight with blood. He received 3 mg of warfarin yesterday. Bedside: Patient states that his pain control is much better than yesterday, however he feels more tired and lethargic today, and has not had the chance to sleep. He is due for his hemodialysis session today but however he refuses. Counseled that he needs to go. Vitals: Soft MAP's at 60s Labs: Potassium 5.2 Hemoglobin dropped to 7.2 from 7.5 yesterday N.p.o. today at midnight for YONATHAN tomorrow. Current Facility-Administered Medications Medication Dose Route Frequency NaCl 0.9% iv flush bag 20 mL INTRAVENOUS PRN acetaminophen 650 mg tab(s) (TYLENOL) 650 mg ORAL q 6 H PRN aspirin 81 mg chewable tab(s) 81 mg ORAL DAILY midodrine 20 mg tab(s) (PROAMATINE) 20 mg ORAL q 8 H cinacalcet 60 mg tab(s) (SENSIPAR) 60 mg ORAL DAILY sevelamer carbonate 800 mg tab(s) (RENVELA) 800 mg ORAL TID w MEALS polyethylene glycol 3350 17 g packet 17 g ORAL DAILY calcitriol 1.5 mcg cap(s) (ROCALTROL) 1.5 mcg ORAL MO-WE- LORazepam 0.25 mg tab(s) (ATIVAN) 0.25 mg ORAL DAILY PRN fentaNYL 50 mcg/mL 25 mcg injection (SUBLIMAZE) 25 mcg INTRAVENOUS DAILY PRN warfarin order for discharge OTHER PRN ascorbic acid 500 mg chewable tab(s) 500 mg ORAL DAILY pyridoxine (vitamin B6) 50 mg tab(s) (VITAMIN B6) 50 mg ORAL DAILY vitamin A 10,000 Units cap(s) (AQUASOL A) 10,000 Units ORAL DAILY senna 8.6 mg tab(s) (SENOKOT) 8.6 mg ORAL/FEEDING TUBE BID fentaNYL 50 mcg/mL 50 mcg injection (SUBLIMAZE) 50 mcg INTRAVENOUS DAILY PRN melatonin 3 mg tab(s) 3 mg ORAL/FEEDING TUBE AT BEDTIME PRN Darbepoetin [place] In Polysorbat 60 mcg injection (ARANESP) 60 mcg SUBCUTANEOUS q Wed lidocaine (PF) 10 mg/mL (1 %) 10-100 mg injection (XYLOCAINE) 1-10 mL INTRADERMAL DIRECTED PRN oxyCODONE IR 15 mg tab(s) (ROXICODONE) 15 mg ORAL q 4 H PRN Objective PHYSICAL EXAM: BP 102/49 Pulse 112 Temp (Src) 98.6 (Oral) Resp 16 Ht 5' 9.685 (1.77m) Wt 255 lb 8.2 oz (115.9kg) SpO2 100% BMI 36.99 kg/(m2). O2 Therapy: Room Air Physical Exam Performed GENERAL: Alert, no distress, cooperative SKIN: Right and Left anterior and posterior chest wounds: chronic, bleeding, no purulent discharge. LUNGS: Lungs clear to auscultation, Good diaphragmatic excursion CARDIAC: Normal S1 and S2; no rubs, murmurs, or gallops ABDOMEN: Abdomen soft, non-tender, BS normal, No masses or organomegaly Lines, Drains, and Airways Line Duration Peripheral 04/26/25 2[facility] Right Forearm 20 Gauge 19 days Dialysis / Apheresis Double Lumen 04/29/25 1005 [facility] Tunneled Right Internal Jugular 16 days DATA: Diagnostic tests reviewed for today's visit: Most recent labs Most recent imaging Most recent EKG Labs: Latest Reference Range AND Units 05/14/25 13:10 05/14/25 18:38 05/15/25 01:54 05/16/25 01:55 Sodium 136 - 144 mmol/L 140 138 Potassium 3.7 - 5.1 mmol/L 5.1 5.2 (H) Chloride 98 - 107 mmol/L 98 98 CO2 22 - 30 mmol/L 27 24 BUN 9 - 24 mg/dL 15 24 Creatinine 0.73 - 1.22 mg/dL 5.67 (H) 7.82 (H) Glucose 74 - 99 mg/dL 75 87 Protein, Total 6.3 - 8.0 g/dL 7.7 7.7 Calcium 8.5 - 10.2 mg/dL 8.1 (L) 7.9 (L) Albumin 3.9 - 4.9 g/dL 3.8 (L) 3.7 (L) Bilirubin, Total 0.2 - 1.3 mg/dL 0.4 0.3 Alkaline Phosphatase 38 - 113 U/L 163 (H) 156 (H) ALT 10 - 54 U/L 13 13 AST 14 - 40 U/L 20 17 Anion Gap 8 - 15 mmol/L 15 16 (H) eGFR >=60 mL/min/1.73m? 12 (L) 8 (L) WBC 3.70 - 11.00 k/uL 4.75 6.55 7.00 RBC 4.20 - 6.00 m/uL 2.76 (L) 2.61 (L) 2.55 (L) Hemoglobin 13.0 - 17.0 g/dL 8.0 (L) 7.5 (L) 7.2 (L) Hematocrit 39.0 - 51.0 % 26.2 (L) 25.5 (L) 24.9 (L) Platelet Count 150 - 400 k/uL 148 (L) 209 198 MCV 80.0 - 100.0 fL 94.9 97.7 97.6 MCH 26.0 - 34.0 pg 29.0 28.7 28.2 MCHC 30.5 - 36.0 g/dL 30.5 29.4 (L) 28.9 (L) MPV 9.0 - 12.7 fL 12.2 11.7 11.6 RDW-CV 11.5 - 15.0 % 19.7 (H) 19.5 (H) 19.7 (H) Absolute nRBC <0.01 k/uL <0.01 <0.01 <0.01 PT Sec 9.7 - 13.0 sec 26.2 (H) 26.6 (H) 26.8 (H) PT INR 0.9 - 1.3 2.6 (H) 2.6 (H) 2.6 (H) (H): Data is abnormally high (L): Data is abnormally low Transthoracic echocardiogram 05/06/25: EF: 60%, left ventricular hypertrophy, right ventricle normal, trace tricuspid valve regurgitation, trace pulmonic valve regurgitation, no pericardial effusion, aorta normal in size CXR 04/21/25: TDC with tip in RA. Increase of perihilar and basilar opacities with volume loss, suggesting atelectasis, possible underlying edema/inflammation. Blunting of L CP angle, which may represent tiny effusion or pleural thickening. CT A/P 04/22/25: No abdominal or pelvic subcutaneous fluid collection of gas. Redemonstrated diffuse subcutaneous extensive abdominal wall collaterals, similar to prior CTA 10/17/2024. CT chest 04/22/25: extensive chest wall collaterals, few areas of skin ulceration, no areas of drainable fluid collection. Findings consistent with central venous stenoses. Few patchy groundglass opacities, may be related to mild pulm edema Assessment/Plan Problem List Assessment AND Plan Bleeding from open wound of chest wall, right, initial encounter Secondary hyperparathyroidism, renal (HCC) ESRD on hemodialysis (HCC) History of non-ST elevation myocardial infarction (NSTEMI) Vitamin D deficiency S/P MVR (mitral valve replacement) Supratherapeutic INR Atrial fibrillation (HCC) Acute on chronic blood loss anemia Adjustment disorder with depressed mood Acquired hypothyroidism Acquired stenosis of superior vena cava Venous collateral circulation Status post Maze operation for atrial fibrillation Ulcers, venous (HCC) Wounds, multiple Anemia due to multiple mechanisms Hemorrhage from open wound of left chest wall Open chest wound, right, sequela Open chest wound, left, sequela Back wound, unspecified laterality, sequela Open wound of abdomen Open wound of right thigh Bleeding from wound Difficult intravenous access Hypervolemia Skin ulcers (HCC) Vitamin C deficiency Vitamin A deficiency Vitamin B6 deficiency Second degree AV block, Mobitz type I HOSPITAL COURSE: Elia Weston is a 45 year old male with extensive PMH, significant for ESRD on HD (MWF) last session 04/18 (skipped Friday since he came to ED), CAD s/p CABG, severe MS s/p MVR on Warfarin (goal INR of 2.5-3.5), pAfib s/p maze procedure and RADHA clip and chronic chest/abdominal/back wounds (3 years) likely secondary to ischemia in context of SVC syndrome and multiple thrombosis, who presented to the ED with 1-day of left chronic chest wound bleeding. Admitted for management of bleeding, and on transfer to [facility], patient began to have significant bleeding from R chest wound. Continuous pressure was applied and bleeding stopped. Now s/p FFP and RBC transfusions as appropriate. Initially started on Vanc/Zosyn given elevated ESR/CRP and WBC, no infectious concern on further imaging with improved lactate WBC, so ABx were stopped. Dermatology and wound care consulted. IR consulted, planning for venoplasty given INR reversal. 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 Hx of hemorrhagic shock from bleeding abdominal wounds - presenting with acute worsening of pain and bleeding from wounds. Denies purulent discharge from wounds. - Leukocytosis + Elevated CRP 22.1 and ESR 133 + Elevated lactate on presentation; concerned for infected wounds/soft tissue infection. Started on IV vanc/zosyn, later d/janie due to low infectious concern (04/21-04/25) - On admission, acute rise in lactate in light of acute significant bleeding and drop in HGB (8.6 from 9.5 in ED) likely secondary to hypovolemia, also missed dialysis - CT venogram on 10/19/24 with b/l brachiocephalic stenosis w b/l subclavian vein occlusion, extensive venous collaterals - 10/22/24: Venoplasty completed by IR, removed L femoral TDC, exchanged R TDC - blood cultures 04/20/25 with NG5D x2 - AMET for hypotension 80/50, s/p 500 cc LR bolus, scheduled midodrine with improved repeat 102/63 - lactate 2.4 from 1.7, improved from 3.2 at admission. Completed 5d course of IV vanc/zosyn (04/21-04/25) - CT chest and CT A/P 04/22/25 with no drainable fluid collections, extensive chest collaterals - nutritional workup: B12 elevated, folate wnl, iron low 26, TIBC low 137, trans sat wnl, low vit D 22.9, zinc 69 wnl, low vit A 0.10 - 04/29/25: Venoplasty: completed by IR. 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 Right upper chest tunneled dialysis catheter was exchanged over a wire for a new on; ready for use PLAN: - IR consulted: > venoplasty 04/29/2025 - no complications - Derm consulted: > ongoing nutritional workup > discontinued clobetasol 0.05% ointment BID per derm, lesion over R scapula, try to simulate tx of PG and assess response > [facility] Derm f/u outpatient - continue vitamin D supplement 5000 unit(s), ascorbic acid 500mg/day, vit B6 50mg/day, vit A 10,000 units/day - wound care team consulted, appreciate care - pain control: tylenol 650 mg q6h prn and oxycodone 10 mg po q6h PRN. > IV fent for dressing changes as needed - plastic surgery consulted: > no indication for surgical intervention at this time - Cautious fluid resuscitation in light of acute bleeding and ESRD anuric on HD - Chest wound dressings to be changed every day - Bilateral Upper Extremity doppler 05/12: No evidence of patent arteriovenous fistulas bilaterally - Patient has uncontrolled pain from his chest wounds/bleeding - Updated Oxycodone to 15mg PO q4 PRN - Patient states he does not want Tylenol as it hasn't worked for him in the past - Patient has better pain control today than yesterday after the updated pain management regimen -Plastic surgery consulted due to ongoing wound bleeding overnight #Supratherapeutic INR #CAD s/p CABG #Severe MS s/p mechanical MVR on coumadin #Paroxysmal Afib s/p multiple DCCV s/p Maze procedure + RADHA clip (07/2021) - atrial fibrillation and severe mitral stenosis s/p mechanical mitral valve replacement with On-x valve (INR goal 2.5-3.5), Maze procedure and RADHA clip on 08/21/2021. - Goal INR 2.5- 3.5; on warfarin 2.5 mg daily although patient not sure of dose, has been changed recently; last dose of warfarin Thursday 04/19 - INR elevated to 5.1 on admission, improved to 3.9 s/p 2u FFP 04/21 - possible etiology of supratherapeutic INR: warfarin dose (given patient not sure of home dose) vs malnutrition vs liver disease (less likely given AST/ALT wnl) - INR elevated again to 5.3, patient received po vitamin K 5 mg 04/25. Improved to 1.7 - INR 3.3 on 05/08 - INR of 5.2 on 05/10/25. Warfarin held today. PLAN: - given subtherapeutic INR and no intervention by plastic surgery planned, continue bridging to warfarin > goal INR 2.5 - 3.5, given mechanical valve. - Heparin discontinued 05/07 - Daily INR - Follows with Dr. Moreno (cardiology in [place]) for mgmt of Coumadin, will need follow-up outpatient - 1mg Vitamin K IV given to reverse Warfarin, in view of undergoing YONATHAN, with YONATHAN lab protocol of INR<4. - INR 05/11/25: 2.0, 3 mg Warfarin given. - INR 2.1 05/12/2025 warfarin increased to 3.5 - INR: 2.3 05/13/25, warfarin 3 mg ordered - Spoke to patient for considering Heparin GTT inpatient, however, patient refuses - INR 2.6 on 05/15/25: Last dose of warfarin given: 3mg on 05/13/25. 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) - INR from 05/15/2025: 2.6 - 3mg Warfarin ordered PO 05/15/25 - INR 2.6 on 05/16/2025, repeat 3 mg warfarin PO # Second-degree AV Block, Mobitz Type I - Patient having multiple episodes of bradycardia in the hospital with low blood pressures - Magnesium level 2.2 (05/05/25) - EKG (05/05/25) shows Second degree AV block, mobitz type 1 - EKG (05/06/25): shows sinus rhythm with 2nd degree AV shantell, mobitz type 1 - Transthoracic echocardiogram 05/06/25: EF: 60%, left ventricular hypertrophy, right ventricle normal, trace tricuspid valve regurgitation, trace pulmonic valve regurgitation, no pericardial effusion, aorta normal in size PLAN: - Cardiology team consulted, appreciate recs - Echocardiogram completed, results as above - Cardiology suggest EP consult given risk of progression of 2nd degree AVB, type 1 to higher degree AVB - EP consult on 05/09/25: Consult in process, signed note pending - EP Consult on 05/09/25 Recommendations: -Suggest YONATHAN to assess for possible endocarditis or other pathology - No current pacemaker indications, however, further investigation warranted due to rapid progression since Sep 2024. - YONATHAN ordered, NPO midnight - Patient was scheduled for YONATHAN on 05/13/25, however, due to hypotension during sedation attempt it was terminated. Plan to schedule YONATHAN with General Anesthesia, per Cardiology, earliest date is Friday05/17/25. - Patient scheduled for YONATHAN for 05/17/25, NPO midnight - Patient has daily EKGs and Telemetry to monitor as of 05/16/25 #Constipation - Last recorded bowel movement was on 05/14/25 PLAN: - Polyethylene glycol daily - Start Senna BID #ESRD on HD via Right TDC #Chronic Hypotension #Secondary 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 - iHD at [facility] through R. Tunneled HD catheter MWF - Last dialysis session Friday04/18/2025; missed Fri session because he presented to [facility] ED - anuric at baseline per patient - Serum P=9.7 - completed HD 04/21, now on MWF - PTH elevated 578, Ca 8.3 low PLAN: - nephrology consulted: > continue MWF HD schedule > continue calcitriol MWF - Continue Sensipar, renvela with meals - continue home Midodrine 20mg every 8 hours #Anemia of Chronic Disease/ESRD - Baseline hemoglobin 9-11 - iron studies 12/2024: iron 33, TIBC 156, Iron sat 21, ferritin 1327 - Hgb dropping iso bleeding wounds, as above. - received 1u pRBC 04/21, Hgb from 7.3 -> 7.7 post-transfusion - Hgb 6.9 on 04/22, s/p additional 2u pRBC with Hgb in ~8s PLAN: - Hgb goal >8, 8.4 (05/08/25). - chronic wound mgmt, as above - Iron levels of 36, TIBC- WNL, Ferritin high at 996 on 05/08/25, Replete Iron levels for ANABELLA, per Nephrology recommendation, however due to concerns for ongoing possible endocarditis, we will refrain from IV Iron use until further workup. #Code status - Full # Diet - renal # VTE PPx - warfarin # Dispo Planning - Pending clinical course, SW consulted for recent unemployment, c/f food insecurity #Adjustment disorder? #Low mood - Psychology consulted 05/10/25 - Music therapy - Art therapy - Healing services - Aroma therapy, spiritual services, and brief inpatient psychotherapy ordered per Psychology's recommendation, 05/11/25. Medication and Non-Pharmacologic VTE Prophylaxis/Anticoagulants Anticoagulant AND Antiplatelet Medications (From admission, onward) Start Dose Route Frequency Last Action Ordered Stop 04/21/25 0900 aspirin 81 mg chewable tab(s) 81 mg PO DAILY Given, 05/15 0859 04/21/25 0316 -- 04/10/25 1015 activity - mobilize patient ([place]) 04/04/25 0900 graduated compression stockings ([place], [place]) VTE Prophylaxis: VTE prophylaxis appropriate Disposition: To be determined Plan of care discussed with Provider, RN, Patient Plan communicated to: Family Dae Miner MD PGY-1 Internal Medicine Resident [facility] [place], [address] My Pager PT PNL PPP Collected: 05/16/2025 1:55 AM Status: F Source: [facility] Order Comment: Specimen Type : BLOOD SPECIMEN Ordering Facility: [facility] Address: [address] [place], [place] [id number] TYPE CODE TESTS RESULT OUT OF RANGE REFERENCE UNITS LAB 5902-2(LOINC) Prothrombin time 26.8 High 9.7-13.0 sec LAB 6301-6(LOINC) INR PPP 2.6 High 0.9-1.3 Result Comment: Vitamin K An tagonist (VKA) Therapeutic Range: INR 2 to 3 (Target INR of 2.5) Note: For patients treated with VKA drugs, such as warfarin, the [place] [employer] 2012 Guideline recommends a therapeutic INR range of 2 to 3 (target INR of 2.5). This recommendation includes high-risk patients with antiphospholipid syndrome with previous arterial or venous thromboembolism, current-generation mechanical or bioprosthetic aortic heart valve replacement. Note: Patients with mechanical aortic valve replacement and additional risk factors for thromboembolic events (atrial fibrillation, previous thromboembolism, LV dysfunction, hypercoagulable conditions) or an older generation mechanical AVR (i.e., ball in-Cage) or any mechanical MVR should have a INR therapeutic range of 2.5 to 3.5 (target INR of 3). Ranjit GH, et al. Chest 2012, 141:7S-47S Kevin RA, et al. [facility] 2017, 70: 252-289 Performed By: #### [id number] # ### [facility] CLIA [id number] [address] [place] [address] [place] CBC PNL BLD AUTO Collected: 5 1:55 AM Status: F Source: [facility] Order Comment: Specimen Type : BLOOD SPECIMEN Ordering Facility: [facility] Address: [address] [place], [place] [id number] TYPE CODE TESTS RESULT OUT OF RANGE REFERENCE UNITS LAB 6690-2(LOINC) WBC # Bld Auto 7.00 3.70-11.00 k/uL LAB 789-8(LOINC) RBC # Bld Auto 2.55 Low 4.20-6.00 m/uL LAB 718-7(LOINC) Hgb Bld-mCnc 7.2 Low 13.0-17.0 g/dL LAB 4544-3(LOINC) Hct VFr Bld Auto 24.9 Low 39.0-51.0 % LAB 787-2([facility]) MCV RBC Auto 97.6 80.0-100.0 fL LAB 785-6([facility]) MCH RBC Qn Auto 28.2 26.0-34.0 pg LAB 786-4([facility]) MCHC RBC Auto-mCnc 28.9 Low 30.5-36.0 g/dL LAB 63586-2([facility]) RDW RBC-Rto 19.7 High 11.5-15.0 % LAB 777-3([facility]) Platelet # Bld Auto 198 150-400 k/uL LAB 91711-9([facility]) PMV Bld Auto 11.6 9.0-12.7 fL LAB 771-6([facility]) nRBC # Bld Auto <0.01 <0.01 k/uL Performed By: #### [id number] # ### [facility] CLIA [id number] [address] [place] [address] [place] COMP METAB 2000 PNL SERPL Collected: 1:55 AM Status: F Source: [facility] Order Comment: Specimen Type : BLOOD SPECIMEN Ordering Facility: [facility] Address: [address] [place] [address] TYPE CODE TESTS RESULT OUT OF RANGE REFERENCE UNITS LAB 2885-2([facility]) Prot SerPl-mCnc 7.7 6.3-8.0 g/dL LAB 1751-7(INC) Albumin SerPl-mCnc 3.7 Low 3.9-4.9 g/dL LAB 11639-8([facility]) Calcium SerPl-mCnc 7.9 Low 8.5-10.2 mg/dL LAB 1975-2([facility]) Bilirub SerPl-mCnc 0.3 0.2-1.3 mg/dL LAB 6768-6([facility]) ALP SerPl-cCnc 156 High 38-113 U/L LAB 1920-8(LOINC) AST SerPl-cCnc 17 14-40 U/L LAB 1742-6(LOINC) ALT SerPl-cCnc 13 10-54 U/L LAB 2345-7(LOINC) Glucose SerPl-mCnc 87 74-99 mg/dL Result Comment: The [place] Diabetes Association (ADA) provides guidance for cutoff values for fasting glucose and random glucose. The ADA defines fasting as no caloric intake for at least 8 hours. Fasting plasma glucose results between 100 to 125 mg/dL indicate increased risk for diabetes (prediabetes). Fasting plasma glucose results greater than or equal to 126 mg/dL meet the criteria for diagnosis of diabetes. In the absence of unequivocal hyperglycemia, results should be confirmed by repeat testing. In a patient with classic symptoms of hyperglycemia or hyperglycemic crisis, random plasma glucose results greater than or equal to 200 mg/dL meet the criteria for diagnosis of diabetes. Reference: Standards of Medical Care in Diabetes 2016, [place] Diabetes Association. Diabetes Care. 2016.39(Suppl 1). LAB 3094-0(LOINC) BUN SerPl-mCnc 24 9-24 mg/dL LAB 2160-0(LOINC) Creat SerPl-mCnc 7.82 High 0.73-1.22 mg/dL LAB 2951-2(LOINC) Sodium SerPl-sCnc 138 136-144 mmol/L LAB 2823-3(LOINC) Potassium SerPl-sCnc 5.2 High 3.7-5.1 mmol/L LAB 2075-0(LOINC) Chloride SerPl-sCnc 98 98-107 mmol/L LAB 2028-9(LOINC) CO2 SerPl-sCnc 24 22-30 mmol/L LAB 74724-9(LOINC) Anion Gap SerPl-sCnc 16 High 8-15 mmol/L LAB 71637-9(LOINC) eGFRcr SerPlBld CKD-EPI 2020 8 Low >=60 mL/min/1. 73m??? Result Comment: Estimated Gl omerular Filtration Rate (eGFR) is calculated using the 2020 CKD-EPI creatinine equation. This equation utilizes serum creatinine, sex, and age as parameters. The creatinine assay has traceable calibration to isotope dilution-mass spectrometry. Refer to KDIGO guidelines for clinical interpretation. In patients with unstable renal function, e.g. those with acute kidney injury, the eGFR may not accurately reflect actual GFR. Performed By: #### [id number] # ### [facility] CLIA [id number] [address] [id number] [place] PROGRESS Observed: 05/15/2025 6:31 AM Status: COMPLETED Source: [facility] HNO ID: [id number] Author: LUIS CUI MD Service: Hospital Medicine Author Type: Resident Type: Progress Notes Filed: 05/15/2025 22:33 Note Text: Attestation signed by Luis Cui MD at 05/15/2025 10:33 PM TEACHING PHYSICIAN NOTE OF PERSONAL INVOLVEMENT IN CARE I have reviewed the Progress Note obtained and documented by Resident and I personally participated in the mendoza components. I have discussed the case and management of the patient's care with them. The following comments revise or confirm relevant mendoza components of the note. 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 Managed with INR reversal, transfusions, venoplasty, and wound care. Completed antibiotics with no infection found. Pain controlled with opioids. Warfarin held and restarted per INR. Cardiology and EP involved for Mobitz I AV block; YONATHAN rescheduled after initial hypotension. Continued close monitoring and multidisciplinary care ongoing. Greenhouse Manager:Prolonged Service: I personally spent greater than 30 minutes involved in patient care and coordination of services for this patient Luis Cui MD Authenticated by responsible provider. DEPARTMENT OF HOSPITAL MEDICINE PROGRESS NOTE SERVICE DATE: 05/15/2025 SERVICE TIME: 6:31 AM Hospital Medicine/Primary Attending: Luis Cui MD NIGHT AND WEEKEND COVERAGE: [facility] COVERAGE: Nights: [phone], please page Team Jeffrey Haq; overnight/admitting pager [phone] Subjective Chief Complaint: Pain and chronic chest wound bleeding INTERVAL HPI: Mr. 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 Patient was hospitalized in September 2024 to October 2024 for pain and bleeding from the wounds. Patient was seen by dermatology back then for his skin ulcers. Biopsy performed and was most c/w reactive ischemic changes without features of Pyoderma Gangrenosum or Calciphylaxis. Now, plan for venoplasty with IR pending improvement in INR. Dermatology consulted and underwent steroid trial at wound edge. He was bridged to warfarin while here given his history of mechanical valve. Stay further complicated by new bradycardia, found to have Mobitz 1 second-degree AV block for which cardiology/EP was consulted. Overnight Events: Patient had an overnight AMET called due to recurrent profuse chest bleeding. 1 hour of compression on the wounds by the nursing team was done which reduce the bleeding however did not stop. Subsequent pressure dressing was applied. Warfarin dose was held. Speaking to the patient he says that he is in pain all the time and nobody helps him and thus he has stopped asking the nurses for pain management at this point. His mood is overall low. The night team consulted plastic surgery but due to ongoing bleeding, they suggested [facility] referral to handle it if the bleeding worsens. Vitals: Softer BPs with maps of 56-63 overnight.Hemoglobin dropped to 7.5 from 8. INR from 05/15/2025 is 2.6. Warfarin dose not given on 05/14/2025 Received 3 mg of Warfarin 05/13. Current Facility-Administered Medications Medication Dose Route Frequency NaCl 0.9% iv flush bag 20 mL INTRAVENOUS PRN acetaminophen 650 mg tab(s) (TYLENOL) 650 mg ORAL q 6 H PRN aspirin 81 mg chewable tab(s) 81 mg ORAL DAILY midodrine 20 mg tab(s) (PROAMATINE) 20 mg ORAL q 8 H cinacalcet 60 mg tab(s) (SENSIPAR) 60 mg ORAL DAILY sevelamer carbonate 800 mg tab(s) (RENVELA) 800 mg ORAL TID w MEALS oxyCODONE IR 10 mg tab(s) (ROXICODONE) 10 mg ORAL q 6 H PRN polyethylene glycol 3350 17 g packet 17 g ORAL DAILY calcitriol 1.5 mcg cap(s) (ROCALTROL) 1.5 mcg ORAL -WE- LORazepam 0.25 mg tab(s) (ATIVAN) 0.25 mg ORAL DAILY PRN fentaNYL 50 mcg/mL 25 mcg injection (SUBLIMAZE) 25 mcg INTRAVENOUS DAILY PRN warfarin order for discharge OTHER PRN ascorbic acid 500 mg chewable tab(s) 500 mg ORAL DAILY pyridoxine (vitamin B6) 50 mg tab(s) (VITAMIN B6) 50 mg ORAL DAILY vitamin A 10,000 Units cap(s) (AQUASOL A) 10,000 Units ORAL DAILY senna 8.6 mg tab(s) (SENOKOT) 8.6 mg ORAL/FEEDING TUBE BID fentaNYL 50 mcg/mL 50 mcg injection (SUBLIMAZE) 50 mcg INTRAVENOUS DAILY PRN melatonin 3 mg tab(s) 3 mg ORAL/FEEDING TUBE AT BEDTIME PRN Darbepoetin [place] In Polysorbat 60 mcg injection (ARANESP) 60 mcg SUBCUTANEOUS q Wed lidocaine (PF) 10 mg/mL (1 %) 10-100 mg injection (XYLOCAINE) 1-10 mL INTRADERMAL DIRECTED PRN Objective PHYSICAL EXAM: BP 95/53 Pulse 94 Temp (Src) 97.9 (Oral) Resp 18 Ht 5' 9.685 (1.77m) Wt 255 lb 8.2 oz (115.9kg) SpO2 100% BMI 36.99 kg/(m2). O2 Therapy: Room Air Physical Exam Performed GENERAL: Alert, no distress, cooperative SKIN: Right and Left anterior and posterior chest wounds: chronic, bleeding, no purulent discharge. LUNGS: Lungs clear to auscultation, Good diaphragmatic excursion CARDIAC: Normal S1 and S2; no rubs, murmurs, or gallops ABDOMEN: Abdomen soft, non-tender, BS normal, No masses or organomegaly Lines, Drains, and Airways Line Duration Peripheral 04/26/25 2100 [facility] Right Forearm 20 Gauge 18 days Dialysis / Apheresis Double Lumen 04/29/25 1005 [facility] Tunneled Right Internal Jugular 15 days DATA: Diagnostic tests reviewed for today's visit: Most recent labs Most recent imaging Most recent EKG Labs: Latest Reference Range AND Units 05/14/25 13:10 05/14/25 18:38 05/15/25 01:54 Sodium 136 - 144 mmol/L 140 Potassium 3.7 - 5.1 mmol/L 5.1 Chloride 98 - 107 mmol/L 98 CO2 22 - 30 mmol/L 27 BUN 9 - 24 mg/dL 15 Creatinine 0.73 - 1.22 mg/dL 5.67 (H) Glucose 74 - 99 mg/dL 75 Protein, Total 6.3 - 8.0 g/dL 7.7 Calcium 8.5 - 10.2 mg/dL 8.1 (L) Albumin 3.9 - 4.9 g/dL 3.8 (L) Bilirubin, Total 0.2 - 1.3 mg/dL 0.4 Alkaline Phosphatase 38 - 113 U/L 163 (H) ALT 10 - 54 U/L 13 AST 14 - 40 U/L 20 Anion Gap 8 - 15 mmol/L 15 eGFR >=60 mL/min/1.73m? 12 (L) WBC 3.70 - 11.00 k/uL 4.75 6.55 RBC 4.20 - 6.00 m/uL 2.76 (L) 2.61 (L) Hemoglobin 13.0 - 17.0 g/dL 8.0 (L) 7.5 (L) Hematocrit 39.0 - 51.0 % 26.2 (L) 25.5 (L) Platelet Count 150 - 400 k/uL 148 (L) 209 MCV 80.0 - 100.0 fL 94.9 97.7 MCH 26.0 - 34.0 pg 29.0 28.7 MCHC 30.5 - 36.0 g/dL 30.5 29.4 (L) MPV 9.0 - 12.7 fL 12.2 11.7 RDW-CV 11.5 - 15.0 % 19.7 (H) 19.5 (H) Absolute nRBC <0.01 k/uL <0.01 <0.01 PT Sec 9.7 - 13.0 sec 26.2 (H) 26.6 (H) PT INR 0.9 - 1.3 2.6 (H) 2.6 (H) (H): Data is abnormally high (L): Data is abnormally low Transthoracic echocardiogram 05/06/25: EF: 60%, left ventricular hypertrophy, right ventricle normal, trace tricuspid valve regurgitation, trace pulmonic valve regurgitation, no pericardial effusion, aorta normal in size CXR 04/21/25: TDC with tip in RA. Increase of perihilar and basilar opacities with volume loss, suggesting atelectasis, possible underlying edema/inflammation. Blunting of L CP angle, which may represent tiny effusion or pleural thickening. CT A/P 04/22/25: No abdominal or pelvic subcutaneous fluid collection of gas. Redemonstrated diffuse subcutaneous extensive abdominal wall collaterals, similar to prior CTA 10/17/2024. CT chest 04/22/25: extensive chest wall collaterals, few areas of skin ulceration, no areas of drainable fluid collection. Findings consistent with central venous stenoses. Few patchy groundglass opacities, may be related to mild pulm edema Assessment/Plan Problem List Assessment AND Plan Bleeding from open wound of chest wall, right, initial encounter Secondary hyperparathyroidism, renal (HCC) ESRD on hemodialysis (HCC) History of non-ST elevation myocardial infarction (NSTEMI) Vitamin D deficiency S/P MVR (mitral valve replacement) Supratherapeutic INR Atrial fibrillation (HCC) Acute on chronic blood loss anemia Adjustment disorder with depressed mood Acquired hypothyroidism Acquired stenosis of superior vena cava Venous collateral circulation Status post Maze operation for atrial fibrillation Ulcers, venous (HCC) Wounds, multiple Anemia due to multiple mechanisms Hemorrhage from open wound of left chest wall Open chest wound, right, sequela Open chest wound, left, sequela Back wound, unspecified laterality, sequela Open wound of abdomen Open wound of right thigh Bleeding from wound Difficult intravenous access Hypervolemia Skin ulcers (HCC) Vitamin C deficiency Vitamin A deficiency Vitamin B6 deficiency Second degree AV block, Mobitz type I HOSPITAL COURSE: Elia Weston is a 45 year old male with extensive PMH, significant for ESRD on HD (MWF) last session 04/18 (skipped Friday since he came to ED), CAD s/p CABG, severe MS s/p MVR on Warfarin (goal INR of 2.5-3.5), pAfib s/p maze procedure and RADHA clip and chronic chest/abdominal/back wounds (3 years) likely secondary to ischemia in context of SVC syndrome and multiple thrombosis, who presented to the ED with 1-day of left chronic chest wound bleeding. Admitted for management of bleeding, and on transfer to [facility], patient began to have significant bleeding from R chest wound. Continuous pressure was applied and bleeding stopped. Now s/p FFP and RBC transfusions as appropriate. Initially started on Vanc/Zosyn given elevated ESR/CRP and WBC, no infectious concern on further imaging with improved lactate WBC, so ABx were stopped. Dermatology and wound care consulted. IR consulted, planning for venoplasty given INR reversal. 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 Hx of hemorrhagic shock from bleeding abdominal wounds - presenting with acute worsening of pain and bleeding from wounds. Denies purulent discharge from wounds. - Leukocytosis + Elevated CRP 22.1 and ESR 133 + Elevated lactate on presentation; concerned for infected wounds/soft tissue infection. Started on IV vanc/zosyn, later d/janie due to low infectious concern (04/21-04/25) - On admission, acute rise in lactate in light of acute significant bleeding and drop in HGB (8.6 from 9.5 in ED) likely secondary to hypovolemia, also missed dialysis - CT venogram on 10/19/24 with b/l brachiocephalic stenosis w b/l subclavian vein occlusion, extensive venous collaterals - 10/22/24: Venoplasty completed by IR, removed L femoral TDC, exchanged R TDC - blood cultures 04/20/25 with NG5D x2 - AMET for hypotension 80/50, s/p 500 cc LR bolus, scheduled midodrine with improved repeat 102/63 - lactate 2.4 from 1.7, improved from 3.2 at admission. Completed 5d course of IV vanc/zosyn (04/21-04/25) - CT chest and CT A/P 04/22/25 with no drainable fluid collections, extensive chest collaterals - nutritional workup: B12 elevated, folate wnl, iron low 26, TIBC low 137, trans sat wnl, low vit D 22.9, zinc 69 wnl, low vit A 0.10 - 04/29/25: Venoplasty: completed by IR. 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 Right upper chest tunneled dialysis catheter was exchanged over a wire for a new on; ready for use PLAN: - IR consulted: > venoplasty 04/29/2025 - no complications - Derm consulted: > ongoing nutritional workup > discontinued clobetasol 0.05% ointment BID per derm, lesion over R scapula, try to simulate tx of PG and assess response > [facility] Derm f/u outpatient - continue vitamin D supplement 5000 unit(s), ascorbic acid 500mg/day, vit B6 50mg/day, vit A 10,000 units/day - wound care team consulted, appreciate care - pain control: tylenol 650 mg q6h prn and oxycodone 10 mg po q6h PRN. > IV fent for dressing changes as needed - plastic surgery consulted: > no indication for surgical intervention at this time - Cautious fluid resuscitation in light of acute bleeding and ESRD anuric on HD - Chest wound dressings to be changed every day - Bilateral Upper Extremity doppler 05/12: No evidence of patent arteriovenous fistulas bilaterally - Patient has uncontrolled pain from his chest wounds/bleeding - Updated Oxycodone to 15mg PO q4 PRN - Patient states he does not want Tylenol as it hasn't worked for him in the past #Supratherapeutic INR #CAD s/p CABG #Severe MS s/p mechanical MVR on coumadin #Paroxysmal Afib s/p multiple DCCV s/p Maze procedure + RADHA clip (07/2021) - atrial fibrillation and severe mitral stenosis s/p mechanical mitral valve replacement with On-x valve (INR goal 2.5-3.5), Maze procedure and RADHA clip on 08/21/2021. - Goal INR 2.5- 3.5; on warfarin 2.5 mg daily although patient not sure of dose, has been changed recently; last dose of warfarin Thursday 04/19 - INR elevated to 5.1 on admission, improved to 3.9 s/p 2u FFP 04/21 - possible etiology of supratherapeutic INR: warfarin dose (given patient not sure of home dose) vs malnutrition vs liver disease (less likely given AST/ALT wnl) - INR elevated again to 5.3, patient received po vitamin K 5 mg 04/25. Improved to 1.7 - INR 3.3 on 05/08 - INR of 5.2 on 05/10/25. Warfarin held today. PLAN: - given subtherapeutic INR and no intervention by plastic surgery planned, continue bridging to warfarin > goal INR 2.5 - 3.5, given mechanical valve. - Heparin discontinued 05/07 - Daily INR - Follows with Dr. Moreno (cardiology in [place]) for mgmt of Coumadin, will need follow-up outpatient - 1mg Vitamin K IV given to reverse Warfarin, in view of undergoing YONATHAN, with YONATHAN lab protocol of INR<4. - INR 05/11/25: 2.0, 3 mg Warfarin given. - INR 2.1 05/12/2025 warfarin increased to 3.5 - INR: 2.3 05/13/25, warfarin 3 mg ordered - Spoke to patient for considering Heparin GTT inpatient, however, patient refuses - INR 2.6 on 05/15/25: Last dose of warfarin given: 3mg on 05/13/25. 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) - INR from 05/15/2025: 2.6 - 3mg Warfarin ordered PO # Second-degree AV Block, Mobitz Type I - Patient having multiple episodes of bradycardia in the hospital with low blood pressures - Magnesium level 2.2 (05/05/25) - EKG (05/05/25) shows Second degree AV block, mobitz type 1 - EKG (05/06/25): shows sinus rhythm with 2nd degree AV shantell, mobitz type 1 - Transthoracic echocardiogram 05/06/25: EF: 60%, left ventricular hypertrophy, right ventricle normal, trace tricuspid valve regurgitation, trace pulmonic valve regurgitation, no pericardial effusion, aorta normal in size PLAN: - Cardiology team consulted, appreciate recs - Echocardiogram completed, results as above - Cardiology suggest EP consult given risk of progression of 2nd degree AVB, type 1 to higher degree AVB - EP consult on 05/09/25: Consult in process, signed note pending - EP Consult on 05/09/25 Recommendations: -Suggest YONATHAN to assess for possible endocarditis or other pathology - No current pacemaker indications, however, further investigation warranted due to rapid progression since Sep 2024. - YONATHAN ordered, NPO midnight - Patient was scheduled for YONATHAN on 05/13/25, however, due to hypotension during sedation attempt it was terminated. Plan to schedule YONATHAN with General Anesthesia, per Cardiology, earliest date is Friday05/17/25. - Patient scheduled for YONATHAN for 05/17/25 #Constipation - Last recorded bowel movement was on 05/14/25 PLAN: - Polyethylene glycol daily - Start Senna BID #ESRD on HD via Right TDC #Chronic Hypotension #Secondary 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 - iHD at [facility] through R. Tunneled HD catheter MWF - Last dialysis session Friday04/18/2025; missed Fri session because he presented to [facility] ED - anuric at baseline per patient - Serum P=9.7 - completed HD 04/21, now on MWF - PTH elevated 578, Ca 8.3 low PLAN: - nephrology consulted: > continue MWF HD schedule > continue calcitriol MWF - Continue Sensipar, renvela with meals - continue home Midodrine 20mg every 8 hours #Anemia of Chronic Disease/ESRD - Baseline hemoglobin 9-11 - iron studies 12/2024: iron 33, TIBC 156, Iron sat 21, ferritin 1327 - Hgb dropping iso bleeding wounds, as above. - received 1u pRBC 04/21, Hgb from 7.3 -> 7.7 post-transfusion - Hgb 6.9 on 04/22, s/p additional 2u pRBC with Hgb in ~8s PLAN: - Hgb goal >8, 8.4 (05/08/25). - chronic wound mgmt, as above - Iron levels of 36, TIBC- WNL, Ferritin high at 996 on 05/08/25, Replete Iron levels for ANABELLA, per Nephrology recommendation, however due to concerns for ongoing possible endocarditis, we will refrain from IV Iron use until further workup. #Code status - Full # Diet - renal # VTE PPx - warfarin # Dispo Planning - Pending clinical course, SW consulted for recent unemployment, c/f food insecurity #Adjustment disorder? #Low mood - Psychology consulted 05/10/25 - Music therapy - Art therapy - Healing services - Aroma therapy, spiritual services, and brief inpatient psychotherapy ordered per Psychology's recommendation, 05/11/25. Medication and Non-Pharmacologic VTE Prophylaxis/Anticoagulants Anticoagulant AND Antiplatelet Medications (From admission, onward) Start Dose Route Frequency Last Action Ordered Stop 04/21/25 0900 aspirin 81 mg chewable tab(s) 81 mg PO DAILY Given, 05/14 0941 04/21/25 0316 -- 04/10/25 1015 activity - mobilize [place] ([place]) 04/04/25 0900 graduated compression stockings ([place] VTE Prophylaxis: VTE prophylaxis appropriate Disposition: To be determined Plan of care discussed with Provider, RN, Patient Plan communicated to: Family Dae Miner MD PGY-1 [place], [phone] My Pager CBC PNL BLD AUTO Collected: 5 1:54 AM Status: F Source: [facility] Order Comment: Specimen Type : BLOOD SPECIMEN Ordering Facility: [facility] Address: [address] [place] [address] TYPE CODE TESTS RESULT OUT OF RANGE REFERENCE UNITS LAB 6690-2(LOINC) WBC # Bld Auto 6.55 3.70-11.00 k/uL LAB 789-8(LOINC) RBC # Bld Auto 2.61 Low 4.20-6.00 m/uL LAB 718-7(LOINC) Hgb Bld-mCnc 7.5 Low 13.0-17.0 g/dL LAB 4544-3(LOINC) Hct VFr Bld Auto 25.5 Low 39.0-51.0 % LAB 787-2(LOINC) MCV RBC Auto 97.7 80.0-100.0 fL LAB 785-6(LOINC) MCH RBC Qn Auto 28.7 26.0-34.0 pg LAB 786-4(LOINC) MCHC RBC Auto-mCnc 29.4 Low 30.5-36.0 g/dL LAB 14667-8(LOINC) RDW RBC-Rto 19.5 High 11.5-15.0 % LAB 777-3(LOINC) Platelet # Bld Auto 209 150-400 k/uL LAB 96834-3(LOINC) PMV Bld Auto 11.7 9.0-12.7 fL LAB 771-6(LOINC) nRBC # Bld Auto <0.01 <0.01 k/uL Performed By: #### [id number] # ### [facility] CLIA [id number] [address] [place] [address] STATES OF [facility] PT PNL PPP Collected: 05/15/2025 1:54 AM Status: F Source: [facility] Order Comment: Specimen Type : BLOOD SPECIMEN Ordering Facility: [facility] Address: [address] [place] [address] TYPE CODE TESTS RESULT OUT OF RANGE REFERENCE UNITS LAB 5902-2([facility]) Prothrombin time 26.6 High 9.7-13.0 sec LAB 6301-6([facility]) INR PPP 2.6 High 0.9-1.3 Result Comment: Vitamin K An tagonist (VKA) Therapeutic Range: INR 2 to 3 (Target INR of 2.5) Note: For patients treated with VKA drugs, such as warfarin, the [place] [employer] 2012 Guideline recommends a therapeutic INR range of 2 to 3 (target INR of 2.5). This recommendation includes high-risk patients with antiphospholipid syndrome with previous arterial or venous thromboembolism, current-generation mechanical or bioprosthetic aortic heart valve replacement. Note: Patients with mechanical aortic valve replacement and additional risk factors for thromboembolic events (atrial fibrillation, previous thromboembolism, LV dysfunction, hypercoagulable conditions) or an older generation mechanical AVR (i.e., ball in-Cage) or any mechanical MVR should have a INR therapeutic range of 2.5 to 3.5 (target INR of 3). Ranjit YOUSSEF, et al. Chest 2012, 141:7S-47S Kevin RUSHING et al. [facility] 2017, 70: 252-289 Performed By: #### [id number] # ### [facility] CLIA [id number] [address] [place] [address] [place] MEDICAL [facility]APHAEL Observed: 05/14/2025 9:05 PM Status: COMPLETED Source: [facility] HNO ID: [id number] Author: YAJAIRA GLASS MD Service: Critical Care Author Type: Physician Type: Chg in Clinical Condition Filed: 05/14/2025 21:11 Note Text: MEDICAL EMERGENCY TEAM AMET CODE STATUS: Code Status: Full Code BACKGROUND 45 M w/ b/g ESRD on HD, HTN, Afib s/p MV replacement, secondary hyperparathyroidism, vasculopathy w/ hx of SVC syndrome Hospital Course: 04/21: 2u FFP AND pRBC transfusions; 04/29: Venoplasty; 05/10: Warfarin held, 1mg Vitamin K IV; Active Issues: non-healing Abd-wall wound recurrent bleeding, Supratherapeutic INR, 2nd degree AV block (Mobitz type I), Anemia REASON FOR CALL RN for reason of Bleeding via Abd wall wound ASSESSMENT Active Bleeding On Anticoagulation Non-healing abdominal Wall wound Patient had another episode of his recurrent bleeding. Spontaneously bled through the wound found when his gown started soaking wet. On arrival: HDS, Patient fully alert and was holding pressure on his wound with a gauze. Patient seemed well versed with plan of care of his ongoing bleeding. INTERVENTIONS Follow up on INR, consider holding off on Coumadin dose tonight If INR is > 3.5 consider FFP if bleeding continues Continue holding pressure, abd pad with hemostat pad with pressure applied, Avoid aggravating movements, bed rest. DISPOSITIONS Improved Primary Team Notified: Yes PAST MEDICAL / SURGICAL HISTORY PAST MEDICAL HISTORY Diagnosis Date Anemia of chronic disorder Anuria Atrial fibrillation (HCC) 12/02/2018 on Coumadin and Amiodarone BMI 40.0-44.9, adult (HCC) ESRD (end stage renal disease) on dialysis (HCC) 2005 ESRD from HTN Dialysis M,W,[facility] [phone] Essential hypertension, benign 1998 EKG 09/30 NL. Hearing loss of both ears History of mitral valve stenosis Hx of bacterial endocarditis 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 due to end stage renal disease on dialysis (HCC) Kidney disease 2005 ESRD due to HTN; on IHD since 2005 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 and scoliosis h/o this 3 y. Dx by xray. Mechanical complication of arteriovenous fistula surgically created (HCC) Mechanical complication of dialysis catheter (HCC) Mitral valve disease Morbid obesity (HCC) MS (mitral stenosis) 10/08/2018 Transesophageal US YEIMY on CPAP Paroxysmal atrial fibrillation (HCC) PE (pulmonary thromboembolism) (HCC) Pelvic mass Pseudoaneurysm of AV hemodialysis fistula (HCC) Wound of right side of back from friction/rubbing of jacket, goes to wound care center in [place] PAST SURGICAL HISTORY Procedure Laterality Date ARTERIOVENOUS FISTULA Left 08/29/2010 CAPSULE ENDOSCOPY 07/01/2023 CARDIOVERSION-ELECTIVE N/A 12/03/2018 200 joules synchronized - successful COLONOSCOPY 07/01/2023 EGD 06/27/2023 HERNIA REPAIR HX PAST SURGICAL HISTORY OF 08/29/2010 dialysis fistula left arm PAST SURGICAL HISTORY OF Right 03/2019 Right leg femoral vein to superficial femoral artery loop graft mid thigh REPAIR CLEFT LIP RMVL LEANN CVC W/O SUBQ PORT/TOBACCO PREVENTION HEALTH EDUCATOR 01/17/2013 SHX CARDIAC RADIOFREQUENCY ABLATION 08/21/2021 s/p Maze procedure SHX MITRAL VALVE REPLACEMENT 08/21/2021 PERTINENT PHYSICAL EXAM and INITIAL ASSESSMENT (For vital signs prior and during MET call, see nursing documentation) Pertinent Vital Signs at Time of MET Call: BP 111/66 Pulse (!) 127 Temp 36.8 ?C (98.2 ?F) (Oral) Resp 18 Ht 177 cm (5' 9.69) Wt 115.9 kg (255 lb 8.2 oz) SpO2 99% BMI 36.99 kg/m? Appearance: Alert, No distress, and Cooperative Airway Patent: Yes Breathing Evaluation: Normal Circulation Evaluation: Skin warm and Pulses Regular Neurologic Evaluation: GCS Evaluation: 4. Spontaneous, 5: Oriented 6: Obeys Motor commands Is the Level of Consciousness at Baseline: Yes Head/Eyes: PERRLA Skin: warm Lungs: clear Abdomen: soft and non-tender Extremities: edema: 1+ Dialysis / Apheresis Double Lumen 04/29/251004 [facility] Tunneled Right Internal Jugular (Active) Placement Date/Time: 04/29/251004 Line, Drain, Airway Placed by: [facility] Type: Tunneled Location: Right Insertion Site: Internal Jugular Peripheral 04/26/252099 [facility] Right Forearm 20 Gauge (Active) Placement Date/Time: 07/29/25 2100 Line, Drain, Airway Placed by: [facility] Facility Location: Right Insertion Site: Forearm Size: 20 Gauge PERTINENT DIAGNOSTICS Diagnostic Tests Reviewed: Most recent labs and imaging results. Primary Team Aware/Notified: Yes CRITICAL CARE TIME: I personally spent 30 minutes directly supervising and providing non-critical care to the patient as noted above.. I have reviewed, approved and signed the paper MET note. Please refer to this for complete orders and nursing/respiratory documentation. SIGNATURE: Yajaira Glass MD PATIENT NAME: Elia Weston DATE: May 14, 2025 TIME: 9:05 PM PLAN OF CARE Observed: 05/14/2025 8:06 PM Status: COMPLETED Source: [facility] HNO ID: [id number] Author: OJNATHON JOHNSON MD Service: General Internal Medicine Author Type: Resident Type: Plan of Care Filed: 05/14/2025 20:10 Note Text: Called to bedside due to profuse chest wound bleed. AMET and nursing at bedside. After around 1 hour of compression by nursing bleeding decreased but did not stop. Pressure dressing applied and will be left for a longer time in hopes of obtaining hemostasis. INR at this time is 2.6. We will hold the Warfarin dose for tonight as patient is reluctant to take it with ongoing bleed and because risks outweigh the benefits at least in the acute setting. We will not reverse his Warfarin with FFP or vitK as not to increase clotting risk for now, unless necessity arises overnight. Repeat CBC ordered and will transfuse blood as needed. Jonathon Johnson MD Internal Medicine PGY-3 ALLIED HEALTH Observed: 05/14/2025 6:46 PM Status: COMPLETED Source: [facility] HNO ID: [id number] Author: HARRIS MILLER RN Service: PICC Team Author Type: Registered Nurse Type: Allied Health Filed: 05/14/2025 18:47 Note Text: PICC Team consulted for accucath placement. Upon arrival to room phlebotomy just finished collecting pt's lab work successfully. Also, pt has a working PIV already - flushes well and also has brisk blood return. Discussed with ordering provider and ok to [place] [id number] PT PNL PPP Collected: 05/14/2025 6:38 PM Status: F Source: [facility] Order Comment: Specimen Type : BLOOD SPECIMEN Ordering Facility: [facility] Address: [address] [place] [address] TYPE CODE TESTS RESULT OUT OF RANGE REFERENCE UNITS LAB 5902-2(LOINC) Prothrombin time 26.2 High 9.7-13.0 sec LAB 6301-6(LOINC) INR PPP 2.6 High 0.9-1.3 Result Comment: Vitamin K An tagonist (VKA) Therapeutic Range: INR 2 to 3 (Target INR of 2.5) Note: For patients treated with VKA drugs, such as warfarin, the [place] [employer] 2012 Guideline recommends a therapeutic INR range of 2 to 3 (target INR of 2.5). This recommendation includes high-risk patients with antiphospholipid syndrome with previous arterial or venous thromboembolism, current-generation mechanical or bioprosthetic aortic heart valve replacement. Note: Patients with mechanical aortic valve replacement and additional risk factors for thromboembolic events (atrial fibrillation, previous thromboembolism, LV dysfunction, hypercoagulable conditions) or an older generation mechanical AVR (i.e., ball in-Cage) or any mechanical MVR should have a INR therapeutic range of 2.5 to 3.5 (target INR of 3). Ranjit GH, et al. Chest 2012, 141:7S-47S Kevin RA, et al. [facility] 2017, 70: 252-289 Performed By: #### [id number] # ### [facility] CLIA [id number] [address] [place] [address] [place] COMP METAB 2000 PNL SERPL Collected: 6:38 PM Status: F Source: [facility] Order Comment: Specimen Type : BLOOD SPECIMEN Ordering Facility: [facility] Address: [address] [place] [address] TYPE CODE TESTS RESULT OUT OF RANGE REFERENCE UNITS LAB 2885-2(LOINC) Prot SerPl-mCnc 7.7 6.3-8.0 g/dL LAB 1751-7(LOINC) Albumin SerPl-mCnc 3.8 Low 3.9-4.9 g/dL LAB 69364-1(LOINC) Calcium SerPl-mCnc 8.1 Low 8.5-10.2 mg/dL LAB 1975-2(LOINC) Bilirub SerPl-mCnc 0.4 0.2-1.3 mg/dL LAB 6768-6(LOINC) ALP SerPl-cCnc 163 High 38-113 U/L LAB 1920-8(LOINC) AST SerPl-cCnc 20 14-40 U/L LAB 1742-6(LOINC) ALT SerPl-cCnc 13 10-54 U/L LAB 2345-7(INC) Glucose SerPl-mCnc 75 74-99 mg/dL Result Comment: The [place] Diabetes Association (ADA) provides guidance for cutoff values for fasting glucose and random glucose. The ADA defines fasting as no caloric intake for at least 8 hours. Fasting plasma glucose results between 100 to 125 mg/dL indicate increased risk for diabetes (prediabetes). Fasting plasma glucose results greater than or equal to 126 mg/dL meet the criteria for diagnosis of diabetes. In the absence of unequivocal hyperglycemia, results should be confirmed by repeat testing. In a patient with classic symptoms of hyperglycemia or hyperglycemic crisis, random plasma glucose results greater than or equal to 200 mg/dL meet the criteria for diagnosis of diabetes. Reference: Standards of Medical Care in Diabetes 2016, [place] Diabetes Association. Diabetes Care. 2016.39(Suppl 1). LAB 3094-0(LOINC) BUN SerPl-mCnc 15 9-24 mg/dL LAB 2160-0(LOINC) Creat SerPl-mCnc 5.67 High 0.73-1.22 mg/dL LAB 2951-2(LOINC) Sodium SerPl-sCnc 140 136-144 mmol/L LAB 2823-3(LOINC) Potassium SerPl-sCnc 5.1 3.7-5.1 mmol/L LAB 2075-0(LOINC) Chloride SerPl-sCnc 98 98-107 mmol/L LAB 202-9(LOINC) CO2 SerPl-sCnc 27 22-30 mmol/L LAB 33980-4(LOINC) Anion Gap SerPl-sCnc 15 8-15 mmol/L LAB 17807-3(LOINC) eGFRcr SerPlBld CKD-EPI 2020 12 Low >=60 mL/min/1. 73m??? Result Comment: Estimated Gl omerular Filtration Rate (eGFR) is calculated using the 2020 CKD-EPI creatinine equation. This equation utilizes serum creatinine, sex, and age as parameters. The creatinine assay has traceable calibration to isotope dilution-mass spectrometry. Refer to KDIGO guidelines for clinical interpretation. In patients with unstable renal function, e.g. those with acute kidney injury, the eGFR may not accurately reflect actual GFR. Performed By: #### [id number] # ### [facility] CLIA [id number] [address] [place] [address] [place] CBC PNL BLD AUTO Collected: 5 1:10 PM Status: F Source: [facility] Order Comment: Specimen Type : BLOOD SPECIMEN Ordering Facility: [facility] Address: [address] [place] [address] TYPE CODE TESTS RESULT OUT OF RANGE REFERENCE UNITS LAB 6690-2(LOINC) WBC # Bld Auto 4.75 3.70-11.00 k/uL LAB 789-8(LOINC) RBC # Bld Auto 2.76 Low 4.20-6.00 m/uL LAB 718-7(LOINC) Hgb Bld-mCnc 8.0 Low 13.0-17.0 g/dL LAB 4544-3(LOINC) Hct VFr Bld Auto 26.2 Low 39.0-51.0 % LAB 787-2(LOINC) MCV RBC Auto 94.9 80.0-100.0 fL LAB 785-6(LOINC) MCH RBC Qn Auto 29.0 26.0-34.0 pg LAB 786-4(LOINC) MCHC RBC Auto-mCnc 30.5 30.5-36.0 g/dL LAB 89232-1(LOINC) RDW RBC-Rto 19.7 High 11.5-15.0 % LAB 777-3(LOINC) Platelet # Bld Auto 148 Low 150-400 k/uL LAB 76911-6(LOINC) PMV Bld Auto 12.2 9.0-12.7 fL LAB 771-6(LOINC) nRBC # Bld Auto <0.01 <0.01 k/uL Performed By: #### 37004-4 # ### [facility] CLIA [id number] [address] [place] [address] [place] PROGRESS Observed: 05/13/2025 3:53 PM Status: COMPLETED Source: [facility] HNO ID: [id number] Author: SANA MIR MD Service: Hospital Medicine Author Type: Resident Type: Progress Notes Filed: 05/13/2025 17:46 Note Text: Attestation signed by Sana Mir MD at 05/13/2025 5:46 PM This is a duplicate progress note. Please see note from 05/13/25 at 6:12AM which has my addendum. Sana iMr MD Associate [facility] Medicine DEPARTMENT OF [facility] MEDICINE PROGRESS NOTE SERVICE DATE: 05/13/2025 SERVICE TIME: 3:53 PM Hospital Medicine/Primary Attending: Sana Mir MD NIGHT AND WEEKEND COVERAGE: [facility] COVERAGE: Nights: [phone], please page Team Jeffrey Haq; overnight/admitting pager [phone] Subjective Chief Complaint: Pain and chronic chest wound bleeding INTERVAL HPI: Mr. 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 Patient was hospitalized in September 2024 to October 2024 for pain and bleeding from the wounds. Patient was seen by dermatology back then for his skin ulcers. Biopsy performed and was most c/w reactive ischemic changes without features of Pyoderma Gangrenosum or Calciphylaxis. Now, plan for venoplasty with IR pending improvement in INR. Dermatology consulted and underwent steroid trial at wound edge. He was bridged to warfarin while here given his history of mechanical valve. Stay further complicated by new bradycardia, found to have Mobitz 1 second-degree AV block for which cardiology/EP was consulted. Overnight Events: No acute overnight events Afebrile, hemodynamically stable, on room air Patient is most concerned with his electricity being shut off, discussed working with Case Management. He denies any bleeding from chest wounds, chest pain, palpitation, shortness of breath. Received 3 mg of Warfarin 05/11, INR subtherapeutic overnight at 2.0 > 2.1 in AM, goal 2.5. 3.5 Current Facility-Administered Medications Medication Dose Route Frequency NaCl 0.9% iv flush bag 20 mL INTRAVENOUS PRN acetaminophen 650 mg tab(s) (TYLENOL) 650 mg ORAL q 6 H PRN aspirin 81 mg chewable tab(s) 81 mg ORAL DAILY midodrine 20 mg tab(s) (PROAMATINE) 20 mg ORAL q 8 H cinacalcet 60 mg tab(s) (SENSIPAR) 60 mg ORAL DAILY sevelamer carbonate 800 mg tab(s) (RENVELA) 800 mg ORAL TID w MEALS oxyCODONE IR 10 mg tab(s) (ROXICODONE) 10 mg ORAL q 6 H PRN polyethylene glycol 3350 17 g packet 17 g ORAL DAILY calcitriol 1.5 mcg cap(s) (ROCALTROL) 1.5 mcg ORAL - LORazepam 0.25 mg tab(s) (ATIVAN) 0.25 mg ORAL DAILY PRN fentaNYL 50 mcg/mL 25 mcg injection (SUBLIMAZE) 25 mcg INTRAVENOUS DAILY PRN warfarin order for discharge OTHER PRN ascorbic acid 500 mg chewable tab(s) 500 mg ORAL DAILY pyridoxine (vitamin B6) 50 mg tab(s) (VITAMIN B6) 50 mg ORAL DAILY vitamin A 10,000 Units cap(s) (AQUASOL A) 10,000 Units ORAL DAILY senna 8.6 mg tab(s) (SENOKOT) 8.6 mg ORAL/FEEDING TUBE BID fentaNYL 50 mcg/mL 50 mcg injection (SUBLIMAZE) 50 mcg INTRAVENOUS DAILY PRN melatonin 3 mg tab(s) 3 mg ORAL/FEEDING TUBE AT BEDTIME PRN Darbepoetin [place] In Polysorbat 60 mcg injection (ARANESP) 60 mcg SUBCUTANEOUS q Wed warfarin 3 mg tab(s) (COUMADIN) 3 mg ORAL/FEEDING TUBE ONCE - WARFARIN Objective PHYSICAL EXAM: BP 108/38 Pulse 62 Temp (Src) 98.2 (Oral) Resp 18 Ht 5' 9.685 (1.77m) Wt 255 lb 8.2 oz (115.9kg) SpO2 96% BMI 36.99 kg/(m2). O2 Therapy: Continuous Positive Airway Pressure Physical Exam Performed GENERAL: Alert, no distress, cooperative SKIN: Right and Left anterior and posterior chest wounds: chronic, bleeding, no purulent discharge. LUNGS: Lungs clear to auscultation, Good diaphragmatic excursion CARDIAC: Normal S1 and S2; no rubs, murmurs, or gallops ABDOMEN: Abdomen soft, non-tender, BS normal, No masses or organomegaly Lines, Drains, and Airways Line Duration Peripheral 04/26/25 2100 [facility] Right Forearm 20 Gauge 16 days Dialysis / Apheresis Double Lumen 04/29/25 1005 [facility] Tunneled Right Internal Jugular 14 days DATA: Diagnostic tests reviewed for today's visit: Most recent labs Most recent imaging Most recent EKG Labs: Latest Reference Range AND Units 05/09/25 13:50 05/10/25 03:41 05/10/25 03:42 Sodium 136 - 144 mmol/L 137 137 Potassium 3.7 - 5.1 mmol/L 5.0 5.0 Chloride 98 - 107 mmol/L 96 (L) 96 (L) CO2 22 - 30 mmol/L 26 28 BUN 9 - 24 mg/dL 16 16 Creatinine 0.73 - 1.22 mg/dL 5.54 (H) 5.45 (H) Glucose 74 - 99 mg/dL 78 79 Calcium 8.5 - 10.2 mg/dL 8.2 (L) 8.2 (L) Phosphorus 2.7 - 4.8 mg/dL 3.5 3.5 Albumin 3.9 - 4.9 g/dL 3.5 (L) 3.6 (L) Anion Gap 8 - 15 mmol/L 15 13 eGFR >=60 mL/min/1.73m? 12 (L) 13 (L) PT Sec 9.7 - 13.0 sec 54.6 (H) 50.5 (H) PT INR 0.9 - 1.3 5.7 (H) 5.2 (H) (L): Data is abnormally low (H): Data is abnormally high Imaging: Transthoracic echocardiogram 05/06/25: EF: 60%, left ventricular hypertrophy, right ventricle normal, trace tricuspid valve regurgitation, trace pulmonic valve regurgitation, no pericardial effusion, aorta normal in size CXR 04/21/25: TDC with tip in RA. Increase of perihilar and basilar opacities with volume loss, suggesting atelectasis, possible underlying edema/inflammation. Blunting of L CP angle, which may represent tiny effusion or pleural thickening. CT A/P 04/22/25: No abdominal or pelvic subcutaneous fluid collection of gas. Redemonstrated diffuse subcutaneous extensive abdominal wall collaterals, similar to prior CTA 10/17/2024. CT chest 04/22/25: extensive chest wall collaterals, few areas of skin ulceration, no areas of drainable fluid collection. Findings consistent with central venous stenoses. Few patchy groundglass opacities, may be related to mild pulm edema Assessment/Plan Problem List Assessment AND Plan Bleeding from open wound of chest wall, right, initial encounter Secondary hyperparathyroidism, renal (HCC) ESRD on hemodialysis (HCC) History of non-ST elevation myocardial infarction (NSTEMI) Vitamin D deficiency S/P MVR (mitral valve replacement) Supratherapeutic INR Atrial fibrillation (HCC) Acute on chronic blood loss anemia Adjustment disorder with depressed mood Acquired hypothyroidism Acquired stenosis of superior vena cava Venous collateral circulation Status post Maze operation for atrial fibrillation Ulcers, venous (HCC) Wounds, multiple Anemia due to multiple mechanisms Hemorrhage from open wound of left chest wall Open chest wound, right, sequela Open chest wound, left, sequela Back wound, unspecified laterality, sequela Open wound of abdomen Open wound of right thigh Bleeding from wound Difficult intravenous access Hypervolemia Skin ulcers (HCC) Vitamin C deficiency Vitamin A deficiency Vitamin B6 deficiency Second degree AV block, Mobitz type I HOSPITAL COURSE: Elia Weston is a 45 year old male with extensive PMH, significant for ESRD on HD (MWF) last session 04/18 (skipped Friday since he came to ED), CAD s/p CABG, severe MS s/p MVR on Warfarin (goal INR of 2.5-3.5), pAfib s/p maze procedure and RADHA clip and chronic chest/abdominal/back wounds (3 years) likely secondary to ischemia in context of SVC syndrome and multiple thrombosis, who presented to the ED with 1-day of left chronic chest wound bleeding. Admitted for management of bleeding, and on transfer to [facility], patient began to have significant bleeding from R chest wound. Continuous pressure was applied and bleeding stopped. Now s/p FFP and RBC transfusions as appropriate. Initially started on Vanc/Zosyn given elevated ESR/CRP and WBC, no infectious concern on further imaging with improved lactate WBC, so ABx were stopped. Dermatology and wound care consulted. IR consulted, planning for venoplasty given INR reversal. 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 Hx of hemorrhagic shock from bleeding abdominal wounds - presenting with acute worsening of pain and bleeding from wounds. Denies purulent discharge from wounds. - Leukocytosis + Elevated CRP 22.1 and ESR 133 + Elevated lactate on presentation; concerned for infected wounds/soft tissue infection. Started on IV vanc/zosyn, later d/janie due to low infectious concern (04/21-04/25) - On admission, acute rise in lactate in light of acute significant bleeding and drop in HGB (8.6 from 9.5 in ED) likely secondary to hypovolemia, also missed dialysis - CT venogram on 10/19/24 with b/l brachiocephalic stenosis w b/l subclavian vein occlusion, extensive venous collaterals - 10/22/24: Venoplasty completed by IR, removed L femoral TDC, exchanged R TDC - blood cultures 04/20/25 with NG5D x2 - AMET for hypotension 80/50, s/p 500 cc LR bolus, scheduled midodrine with improved repeat 102/63 - lactate 2.4 from 1.7, improved from 3.2 at admission. Completed 5d course of IV vanc/zosyn (04/21-04/25) - CT chest and CT A/P 04/22/25 with no drainable fluid collections, extensive chest collaterals - nutritional workup: B12 elevated, folate wnl, iron low 26, TIBC low 137, trans sat wnl, low vit D 22.9, zinc 69 wnl, low vit A 0.10 - 04/29/25: Venoplasty: completed by IR. 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 Right upper chest tunneled dialysis catheter was exchanged over a wire for a new on; ready for use PLAN: - IR consulted: > venoplasty 04/29/2025 - no complications - Derm consulted: > ongoing nutritional workup > discontinued clobetasol 0.05% ointment BID per derm, lesion over R scapula, try to simulate tx of PG and assess response > [facility] D[facility] f/u outpatient - continue vitamin D supplement 5000 unit(s), ascorbic acid 500mg/day, vit B6 50mg/day, vit A 10,000 units/day - wound care team consulted, appreciate care - pain control: tylenol 650 mg q6h prn and oxycodone 10 mg po q6h PRN. > IV fent for dressing changes as needed - plastic surgery consulted: > no indication for surgical intervention at this time - Cautious fluid resuscitation in light of acute bleeding and ESRD anuric on HD - Chest wound dressings to be changed every day - Bilateral Upper Extremity doppler 05/12: No evidence of patent arteriovenous fistulas bilaterally #Supratherapeutic INR #CAD s/p CABG #Severe MS s/p mechanical MVR on coumadin #Paroxysmal Afib s/p multiple DCCV s/p Maze procedure + RADHA clip (07/2021) - atrial fibrillation and severe mitral stenosis s/p mechanical mitral valve replacement with On-x valve (INR goal 2.5-3.5), Maze procedure and RADHA clip on 08/21/2021. - Goal INR 2.5- 3.5; on warfarin 2.5 mg daily although patient not sure of dose, has been changed recently; last dose of warfarin Thursday 04/19 - INR elevated to 5.1 on admission, improved to 3.9 s/p 2u FFP 04/21 - possible etiology of supratherapeutic INR: warfarin dose (given patient not sure of home dose) vs malnutrition vs liver disease (less likely given AST/ALT wnl) - INR elevated again to 5.3, patient received po vitamin K 5 mg 04/25. Improved to 1.7 - INR 3.3 on 05/08 - INR of 5.2 on 05/10/25. Warfarin held today. PLAN: - given subtherapeutic INR and no intervention by plastic surgery planned, continue bridging to warfarin > goal INR 2.5 - 3.5, given mechanical valve. - Heparin discontinued 05/07 - Daily INR - Follows with Dr. Moreno (cardiology in [place]) for mgmt of Coumadin, will need follow-up outpatient - 1mg Vitamin K IV given to reverse Warfarin, in view of undergoing YONATHAN, with YONATHAN lab protocol of INR<4. - INR 05/11/25: 2.0, 3 mg Warfarin given. - INR 2.1 05/12/2025 warfarin increased to 3.5 - INR: 2.3 05/13/25, warfarin 3 mg ordered - Spoke to patient for considering Heparin GTT inpatient, however, patient refuses # Second-degree AV Block, Mobitz Type I - Patient having multiple episodes of bradycardia in the hospital with low blood pressures - Magnesium level 2.2 (05/05/25) - EKG (05/05/25) shows Second degree AV block, mobitz type 1 - EKG (05/06/25): shows sinus rhythm with 2nd degree AV shantell, mobitz type 1 - Transthoracic echocardiogram 05/06/25: EF: 60%, left ventricular hypertrophy, right ventricle normal, trace tricuspid valve regurgitation, trace pulmonic valve regurgitation, no pericardial effusion, aorta normal in size PLAN: - Cardiology team consulted, appreciate recs - Echocardiogram completed, results as above - Cardiology suggest EP consult given risk of progression of 2nd degree AVB, type 1 to higher degree AVB - EP consult on 05/09/25: Consult in process, signed note pending - EP Consult on 05/09/25 Recommendations: -Suggest YONATHAN to assess for possible endocarditis or other pathology - No current pacemaker indications, however, further investigation warranted due to rapid progression since Sep 2024. - YONATHAN ordered, NPO midnight - Patient was scheduled for YONATHAN today, however, due to hypotension during sedation attempt it was terminated. Plan to schedule YONATHAN with General Anesthesia, per Cardiology, earliest date is Friday05/17/25. #Constipation - Last recorded bowel movement was on 05/07/25 PLAN: - Polyethylene glycol daily - Start Senna BID #ESRD on HD via Right TDC #Chronic Hypotension #Secondary 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 - iHD at [facility] [place] through R. Tunneled HD catheter MWF - Last dialysis session Friday04/18/2025; missed Fri session because he presented to [facility] ED - anuric at baseline per patient - Serum P=9.7 - completed HD 04/21, now on MWF - PTH elevated 578, Ca 8.3 low PLAN: - nephrology consulted: > continue MWF HD schedule > continue calcitriol MWF - Continue Sensipar, renvela with meals - continue home Midodrine 20mg every 8 hours #Anemia of Chronic Disease/ESRD - Baseline hemoglobin 9-11 - iron studies 12/2024: iron 33, TIBC 156, Iron sat 21, ferritin 1327 - Hgb dropping iso bleeding wounds, as above. - received 1u pRBC 04/21, Hgb from 7.3 -> 7.7 post-transfusion - Hgb 6.9 on 04/22, s/p additional 2u pRBC with Hgb in ~8s PLAN: - Hgb goal >8, 8.4 (05/08/25). - chronic wound mgmt, as above - Iron levels of 36, TIBC- WNL, Ferritin high at 996 on 05/08/25, Replete Iron levels for ANABELLA, per Nephrology recommendation, however due to concerns for ongoing possible endocarditis, we will refrain from IV Iron use until further workup. #Code status - Full # Diet - renal # VTE PPx - warfarin # Dispo Planning - Pending clinical course, SW consulted for recent unemployment, c/f food insecurity #Adjustment disorder? #Low mood - Psychology consulted 05/10/25 - Music therapy - Art therapy - Healing services - Aroma therapy, spiritual services, and brief inpatient psychotherapy ordered per Psychology's recommendation, 05/11/25. Medication and Non-Pharmacologic VTE Prophylaxis/Anticoagulants Anticoagulant AND Antiplatelet Medications (From admission, onward) Start Dose Route Frequency Last Action Ordered Stop 05/13/25 1700 warfarin 3 mg tab(s) (COUMADIN) 3 mg PO/FT ONCE - WARFARIN Ordered 05/13/25 0917 05/14/25 0459 04/21/25 0900 aspirin 81 mg chewable tab(s) 81 mg PO DAILY Given, 05/12 0914 04/21/25 0316 -- 04/10/25 1015 activity - mobilize [place] ([place]) 04/04/25 0900 graduated compression stockings ([place] VTE Prophylaxis: VTE prophylaxis appropriate Disposition: To be determined Plan of care discussed with Provider, RN, Patient Plan communicated to: Family Dae Miner MD PGY-1 [place], [phone] My Pager ECHO TRANSESOPHAGEAL Observed: 2:53 PM Status: F Source: [facility] Echocardiography Report: Tra nsesophageal Echo [place] J1-5 Date of service: 05/13/2025 2:53:54 PM TENDER Ordering physician: SANA MIR Exam indication: ?Embolic source Normal TTE and ECG Technologist: fellow Fellow: Tod Reyes MD Interpreting physician: Angel Reyes MD PATIENT: Name: ELIA WESTON : 1980 Age: 45 years Gender: M Height: 177.00 cm BSA: 2.39 m Weight: 116.00 kg BMI: 37.0 kg/m Pre Blood pressure 116/75 mmHg O2 saturation 100 % Medications Total Dose Versed 5.00 mg Fentanyl 125.00 mcg YONATHAN exam discontinued due to inability to pass probe. Exam performed under moderate sedation with continuous ECG, pulse oximetry and cardiopulmonary monitoring by nursing, overseen by the performing physician(s), for an intraservice time of 0 min. (Stop Time: 3:35) No specimens collected. No blood loss. The interpreting physician was present for and actively participated in the YONATHAN procedure. CONCLUSIONS: - exam cancelled due to hypotension and inadequate sedation. Consider general anesthesia if clinically indicated. * * * Final * * * CC [employer] Medical Image : [id number] CASE MANAGEM Observed: 05/13/2025 2:42 PM Status: COMPLETED Source: [facility] HNO ID: [id number] Author: VICENTA TORRES LSW Service: Care Management Author Type: Ppa Teacher Type: Care Mgt Progress Note Filed: 05/13/2025 14:43 Note Text: CARE MANAGEMENT WEEKEND PLANNING NOTE DISCHARGE OR POSSIBLE DISCHARGE Date/Time: Sat/Sun Disposition: Home with self care. Unable to arrange home care services- pt does not have a PCP. He plans on establishing care with a PCP soon but has not made any arrangements yet. Transport: Pt drove himself to the hospital. He plans on driving himself home. Primary team aware Other Concerns: n/a Weekend Market Research Executive: Please see Treatment Team for Care Management Weekend/Holiday coverage. SIGNATURE: CANDY Flores PATIENT NAME: Elia Weston DATE: May 13, 2025 TIME: 2:42 PM PLAN OF CARE Observed: 05/13/2025 2:37 PM Status: COMPLETED Source: [facility] HNO ID: [id number] Author: TOD REYES MD Service: Cardiovascular Medicine Author Type: Fellow Type: Plan of Care Filed: 05/13/2025 16:01 Note Text: The patient was brought down to the YONATHAN prep area and I spoke to him regarding completing a YONATHAN under moderate sedation today. The patient stated that he was told that he would be completely put under for the procedure and did not want to proceed with an attempt under moderate sedation and did not consent to the procedure. I spoke to the patient's primary team and explained that the patient did not consent for the procedure and would like it to be completed under general anesthesia. We would likely be able to accommodate this on Friday of next week at the earliest. This was also shared with the patient who stated he wanted to defer the procedure until then. The patient then spoke to his primary team and his and subsequently reconsidered his decision. I then spoke to him for a second time and he stated that he would like to try to complete the YONATHAN today under moderate sedation. I explained the procedure and potential complications at length and answered all questions the patient had. The patient then consented to the procedure and we will attempt to complete the YONATHAN under moderate sedation today. Tod Reyes M.D. Cardiovascular Medicine Fellow, PGY-6 Pg: [phone]: 05/13/2025 3:57 PM We attempted to complete the YONATHAN under conscious sedation and gave 5 rounds of sedation. The patient became hypotensive to ~80/50's and was not sedated enough to perform the procedure. The YONATHAN was aborted for patient safety and hypotension and will be rescheduled with general anesthesia. Tod Reyes M.D. Cardiovascular Medicine Fellow, PGY-6 Pg: [phone] PLAN OF CARE Observed: 05/13/2025 1:42 PM Status: COMPLETED Source: [facility] HNO ID: [id number] Author: DAE MINER MD Service: Hospital Medicine Author Type: Resident Type: Plan of Care Filed: 05/13/2025 13:48 Note Text: Patient is scheduled for a YONATHAN today. Patient is vehemently opposed to getting a YONATHAN without general anesthesia. He says that he was promised general anesthesia by someone and the cardiology team told him that he would only be getting moderate anesthesia instead. Per our documentation however it was not mentioned that he required general anesthesia. Patient is very angry, upset, anxious about this and is not agreeing to getting a YONATHAN done and also with threatening possible AMA. After speaking to him extensively and speaking to the cardiology schedulers the closest date for a YONATHAN with anesthesiology and general anesthesia is Friday. Will not proceed with a YONATHAN today and schedule him for 1 at the earliest possible date with general anesthesia. PROGRESS Observed: 05/13/2025 1:23 PM Status: COMPLETED Source: [facility] HNO ID: [id number] Author: CAMMIE MESSINA RN Service: ? Author Type: Registered Nurse Type: Progress Notes Filed: 05/13/2025 16:04 Note Text: Patient refused to attempt YONATHAN with moderate sedation. Despite long conversation with Dr. Reyes - patient unwilling to attempt. Patient was informed this may delay his hospital stay, he is aware and still refuses to try YONATHAN without full anesthesia. Primary MD to YONATHAN recovery area to discuss with the patient - he is still unwilling to attempt YONATHAN procedure today with moderate sedation. 1408 After discussing his concerns with his on the phone he would like to talk with Dr. Reyes again prior to making a decision. I explained she was in the middle of another procedure, but would talk to him when that case had finished. [address] Reyes he would like to attempt the YONATHAN procedure today with twilight sedation, consent obtained. CNOV Observed: 05/13/2025 1:00 PM Status: COMPLETED Source: [facility] Office Visit (CAFLMN) ELIA WESTON ([id number]) 1980 [facility] Date Time Provider Department 05/13/25 1:00 PM IP TRANSESOPHAGEAL ECHO CAFLMN During your visit today, we recorded the following information about you: Temperature Pulse Respiration Blood pressure 97.2 degrees 87/minute 12/minute 92/53 Edmar Rios, RACHEL 05/13/2025 4:04 PM Signed ..AMBULATORY PATIENT EDUCATION TOPIC: SURVIVAL SKILLS: YONATHAN READINESS TO LEARN COGNITIVE ABILITY: Alert and oriented MOTIVATION TO LEARN: Eager Interested FAMILY SUPPORT: Low - Inconsistent family involvement INSTRUCTION PROVIDED TO: Patient PATIENT LEARNS BEST BY: Individual Instruction Verbal Instruction FACTORS AFFECTING LEARNING: None PHYSICAL LIMITATIONS AFFECTING LEARNING: None LEARNING RESPONSE DIAGNOSIS: IE METHOD OF INSTRUCTION: Individual instruction Verbal instruction PATIENT / FAMILY RESPONSE: Verbalizes understanding of: POST-PROCEDURE INSTRUCTIONS-Correct actions to take to reduce post procedure complications PRE-PROCEDURE INSTRUCTIONS-Correct action to take to follow pre-procedure instructions FOLLOW-UP PLAN: Complete - No need for follow-up SUPPLEMENTAL MATERIAL: None REFERRAL (RECOMMENDATION): None Electronically Signed By Edmar Rios RN In Department: CARDIOLOGY Cammie Messina RN 05/13/2025 4:04 PM Signed Patient refused to attempt YONATHAN with moderate sedation. Despite long conversation with Dr. Reyes - patient unwilling to attempt. Patient was informed this may delay his hospital stay, he is aware and still refuses to try YONATHAN without full anesthesia. Primary MD to YONATHAN recovery area to discuss with the patient - he is still unwilling to attempt YONATHAN procedure today with moderate sedation. 1408 After discussing his concerns with his on the phone he would like to talk with Dr. Reyes again prior to making a decision. I explained she was in the middle of another procedure, but would talk to him when that case had finished. [address] Reyes he would like to attempt the YONATHAN procedure today with twilight sedation, consent obtained. Referring Provider: SANA MIR [[id number]] Allergies As of Date: 05/13/2025 Noted Allergy Reaction GABAPENTIN 08/09/2021 16 - Unknown 14 - Other: See Comments TRAZODONE 10/11/2024 14 - Other: See Comments Comments: Fidgety Date Reviewed: 05/13/2025 Reviewed by: Edmar Rios RN - Fully Assessed Primary Visit Diagnosis:Status post transesophageal echocardiogram (YONATHAN) [Z98.890] Order(s):[] benzocaine 20% (TOPEX)Disp: Rfl: [] lidocaine urojet 2 % topical gel (GLYDO)Disp: Rfl: [] fentaNYL 50 mcg/mL injection (SUBLIMAZE)Disp: Rfl: [] midazolam (PF) injection (VERSED)Disp: Rfl: Prescriptions as of 05/13/2025 - aspirin 81 mg chewable tablet Take 81 mg by mouth. - cinacalcet (SENSIPAR) 60 mg tablet Take 1 tablet by mouth once daily. - melatonin 3 mg tablet Take 3 tablets by mouth daily at bedtime. - warfarin (COUMADIN) 2.5 mg tablet Take 1 tablet by mouth once daily. - calcitriol (ROCALTROL) 0.5 mcg capsule Take 3 capsules by mouth every Friday, Friday, and Friday. - Darbepoetin [place] In Polysorbat (ARANESP) 60 mcg/0.3 mL syrg Inject 0.3 mL subcutaneously every Friday. - sevelamer carbonate (RENVELA) 800 mg tablet Take 3 tablets by mouth three times a day with meals. - polyethylene glycol 3350 (MIRALAX) 17 gram packet Take 1 Packet by mouth once daily. Dissolve dose in 4 - 8 ounces of liquid and take as directed. - oxyCODONE IR (ROXICODONE) 10 mg tab Take 10 mg by mouth every 8 hours as needed for pain. - B Complex-Vitamin C-Folic Acid (JOHNSON-BRENDA) 0.8 mg tab Take 1 tablet by mouth once daily. - midodrine (PROAMATINE) 10 mg tablet Take 2 tablets by mouth every 8 hours. Facility-Administered Medications as of 05/13/2025 - warfarin 3 mg tab(s) (COUMADIN) - melatonin 3 mg tab(s) - Darbepoetin [place] In Polysorbat 60 mcg injection (ARANESP) - senna 8.6 mg tab(s) (SENOKOT) - fentaNYL 50 mcg/mL 50 mcg injection (SUBLIMAZE) - vitamin A 10,000 Units cap(s) (AQUASOL A) - warfarin order for discharge - ascorbic acid 500 mg chewable tab(s) - pyridoxine (vitamin B6) 50 mg tab(s) (VITAMIN B6) - fentaNYL 50 mcg/mL 25 mcg injection (SUBLIMAZE) - LORazepam 0.25 mg tab(s) (ATIVAN) - polyethylene glycol 3350 17 g packet - calcitriol 1.5 mcg cap(s) (ROCALTROL) - oxyCODONE IR 10 mg tab(s) (ROXICODONE) - acetaminophen 650 mg tab(s) (TYLENOL) - aspirin 81 mg chewable tab(s) - midodrine 20 mg tab(s) (PROAMATINE) - cinacalcet 60 mg tab(s) (SENSIPAR) - sevelamer carbonate 800 mg tab(s) (RENVELA) - NaCl 0.9% iv flush bag Meds Comments as of 07/14/2023: 07/14/23 The medications are managed by this patient by: PATIENT Nini Redd [facility] Problem List As Of Date 05/13/2025 Noted Resolved ESRD (end stage renal disease) on dialysis (HCC*10/16/2012 HTN (hypertension) [I10] 10/16/2012 Obesity [E66.9] 11/02/2012 Epigastric pain [R10.13] 11/02/2012 Mechanical complication of other vascular devic*02/12/2013 Right knee pain [M25.561] 07/29/2013 Obesity, morbid, BMI 40.0-49.9 ([facility]) [E66.01] 02/22/2014 Tendinitis of left shoulder [M77.8] 02/22/2014 Mass of left thigh [R22.42] 09/08/2014 Thigh pain [M79.659] 09/08/2014 Hematuria [R31.9] 12/08/2014 Dialysis patient ([facility]) [Z99.2] 12/08/2014 YEIMY (obstructive sleep apnea) [G47.33] 05/09/2015 Abdominal or pelvic swelling, mass, or lump, ri*05/09/2015 Secondary hyperparathyroidism, renal ([facility]) [N25*05/09/2015 Renal osteodystrophy [N25.0] 05/09/2015 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*05/09/2015 Groin pain [R10.30] 05/09/2015 Personal history of DVT (deep vein thrombosis) *03/28/2016 Sprain of medial collateral ligament of right k*04/22/2016 ESRD (end stage renal disease) ([facility]) [N18.6] 04/21/2019 PAF (paroxysmal atrial fibrillation) ([facility]) [I48*12/02/2018 A-V fistula ([facility]) [I77.0] 04/23/2019 Anemia of chronic disease [D63.8] 04/23/2019 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] 05/18/2021 ESRD on hemodialysis ([facility]) [N18.6, Z99.2] 04/07/2019 Expressive dysphasia [R47.02] 08/01/2021 History of endocarditis [Z86.79] 08/01/2021 Hearing loss [H91.90] 02/17/2018 History of non-ST elevation myocardial infarcti*11/08/2019 Heart failure, unspecified ([facility]) [I50.9] 08/05/2011 Iron deficiency anemia, unspecified [D50.9] 05/31/2008 Chronic anticoagulation [Z79.01] 08/01/2021 Mitral valve disease [I05.9] 08/01/2021 Myocardial infarction ([facility]) [I21.9] 08/01/2021 Noncompliance with medication regimen [Z91.148] 08/01/2021 Paroxysmal atrial flutter (HCC) [I48.92] 08/01/2021 Pulmonary embolism (HCC) [I26.99] 08/01/2021 Pulmonary edema [J81.1] 08/01/2021 Stenosis of other vascular prosthetic devices, *05/22/2021 Unspecified atherosclerosis of [place] arteries *10/30/2013 Vitamin D deficiency [E55.9] 10/16/2020 Hypervolemia [E87.70] 08/01/2021 09/04/2021 Open wound of right side of back [S21.201A] 08/01/2021 History of stroke [Z86.73] 08/01/2021 Hypotension, chronic [I95.89] 08/01/2021 Falls [R29.6] 08/01/2021 Mitral valve stenosis, severe [I05.0] 08/03/2021 Mitral stenosis [I05.0] 08/03/2021 Obesity, Class II, BMI 35-39.9 [E66.812] 08/04/2021 Discharge planning issues [Z75.8] 08/17/2021 08/31/2021 Dental caries [K02.9] 08/19/2021 Pain, postoperative, acute [G89.18] 08/21/2021 08/29/2021 Coagulopathy (HCC) [D68.9] 08/21/2021 08/22/2021 S/P MVR (mitral valve replacement) [Z95.2] 08/22/2021 Acute pulmonary edema (HCC) [J81.0] 08/25/2021 08/31/2021 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]08/25/2021 CHB (complete heart block) (HCC) [I44.2] 08/29/2021 Encounter for support and coordination of trans*08/31/2021 Abdominal pain [R10.9] 09/28/2022 Nausea and vomiting [R11.2] 09/28/2022 09/30/2022 Near syncope [R55] 09/28/2022 Acute colitis [K52.9] 09/29/2022 Supratherapeutic INR [R79.1] 09/30/2022 Anemia of chronic disorder [D63.8] 06/12/2023 Atrial fibrillation (HCC) [I48.91] 12/02/2018 Essential hypertension, benign [I10] 1998 Abdominal wall skin ulcer, with unspecified sev*06/24/2023 Acute on chronic blood loss anemia [D62] 06/24/2023 Melena [K92.1] 06/24/2023 Hypotension [I95.9] 06/24/2023 Adjustment disorder with depressed mood [F43.21]06/27/2023 Hyperkalemia [E87.5] 06/30/2023 Hyponatremia [E87.1] 06/30/2023 Metabolic acidosis [E87.20] 06/30/2023 Anemia of renal disease [N18.9, D63.1] 06/30/2023 Skin pain [R20.8] 06/30/2023 Bleeding ulcer [K28.4] 06/30/2023 MSSA bacteremia [R78.81, B95.61] 07/01/2023 Proximal colon ulcer [K63.3] 07/02/2023 Aftercare for long-term (current) use of antibi*07/02/2023 Anemia due to chronic kidney disease, on chroni*07/02/2023 Mild protein-calorie malnutrition (HCC) [E44.1] 08/31/2023 Acquired hypothyroidism [E03.9] 03/17/2024 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 *03/18/2024 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] 03/18/2024 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] 03/18/2024 At risk for alteration in skin integrity based *03/20/2024 Venous collateral circulation [I99.8] 03/21/2024 Hypothyroidism [E03.9] 03/21/2024 H/O mitral valve replacement with mechanical va*03/21/2024 Hypocalcemia due to chronic kidney disease [E83*03/25/2024 Chronic pain syndrome [G89.4] 03/28/2024 Uremia [N19] 04/22/2024 Jugular vein occlusion, 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*04/22/2024 Arteriovenous graft stenosis, sequela [T82.858S]04/22/2024 Open abdominal wall wound [S31.109A] 04/23/2024 Anemia due to stage 5 chronic kidney disease, n*10/13/2024 Status post Maze operation for atrial fibrillat*10/13/2024 Ulcers, venous (HCC) [I83.009, L97.909] 10/13/2024 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] 10/14/2024 11/02/2024 Generalized weakness [R53.1] 10/15/2024 Impaired functional mobility, balance, gait, an*10/15/2024 Ischemic ulcer with fat layer exposed (HCC) [L9*10/21/2024 Gastroesophageal reflux disease without esophag*11/03/2024 Secondary hyperparathyroidism (HCC) [N25.81] 11/03/2024 Anemia in chronic kidney disease (CODE) [D63.1] 11/03/2024 Wounds, multiple [T07.XXXA] 04/21/2025 Anemia due to multiple mechanisms [D64.89] 04/21/2025 Hemorrhage from open wound of left chest wall [*04/21/2025 Bleeding from open wound of chest wall, right, *04/21/2025 Open chest wound, right, sequela [S21.101S] 04/22/2025 Open chest wound, left, sequela [S21.102S] 04/22/2025 Back wound, unspecified laterality, sequela [S2*04/22/2025 Open wound of abdomen [S31.109A] 04/22/2025 Open wound of right thigh [S71.101A] 04/22/2025 Bleeding from wound [T14.8XXA] 04/23/2025 Difficult intravenous access [Z78.9] 04/24/2025 Hypervolemia [E87.70] 04/25/2025 Skin ulcers (HCC) [L98.499] 04/27/2025 Vitamin C deficiency [E54] 05/03/2025 Vitamin A deficiency [E50.9] 05/03/2025 Vitamin B6 deficiency [E53.1] 05/03/2025 Second degree AV block, Mobitz type I [I44.1] 05/06/2025 Prescriptions ordered this encounter Disp Refills Start End BENZOCAINE 20% TOPICAL SPRAY 05/13/2025 05/13/2025 Route: TOP LIDOCAINE 2 % MUCOSAL JELLY IN APPLI* 05/13/2025 05/13/2025 FENTANYL (PF) 50 MCG/ML INJECTION SO* 05/13/2025 05/13/2025 Route: IV MIDAZOLAM (PF) 1 MG/ML INJECTION NE* 05/13/2025 05/13/2025 Route: IV Encounter Status:Closed by EDMAR RIOS on 05/13/25 NURSING PROG Observed: 05/13/2025 12:02 PM Status: COMPLETED Source: [facility] HNO ID: [id number] Author: EDMAR RIOS RN Service: ? Author Type: Registered Nurse Type: Nursing Progress Note Filed: 05/13/2025 16:04 Note Text: ..AMBULATORY PATIENT EDUCATION TOPIC: SURVIVAL SKILLS: YONATHAN READINESS TO LEARN COGNITIVE ABILITY: Alert and oriented MOTIVATION TO LEARN: Eager Interested FAMILY SUPPORT: Low - Inconsistent family involvement INSTRUCTION PROVIDED TO: Patient PATIENT LEARNS BEST BY: Individual Instruction Verbal Instruction FACTORS AFFECTING LEARNING: None PHYSICAL LIMITATIONS AFFECTING LEARNING: None LEARNING RESPONSE DIAGNOSIS: IE METHOD OF INSTRUCTION: Individual instruction Verbal instruction PATIENT / FAMILY RESPONSE: Verbalizes understanding of: POST-PROCEDURE INSTRUCTIONS-Correct actions to take to reduce post procedure complications PRE-PROCEDURE INSTRUCTIONS-Correct action to take to follow pre-procedure instructions FOLLOW-UP PLAN: Complete - No need for follow-up SUPPLEMENTAL MATERIAL: None REFERRAL (RECOMMENDATION): None Electronically Signed By Edmar Rios RN In Department: CARDIOLOGY CONSULT PROG Observed: 05/13/2025 12:00 PM Status: COMPLETED Source: [facility]NO ID: [id number] Author: BOLA GARVIN, PhD Service: Psychology Author Type: Fellow Type: Consult Progress Note Filed: 05/13/2025 14:10 Note Text: Attestation signed by Bola Garvin, PhD at 05/13/2025 2:10 PM STAFF ATTESTATION This service has been performed by a fellow under the direction of myself as supervising psychologist. I was readily available to furnish assistance and direction throughout the encounter. I agree with the fellow's findings and plan as documented and have discussed the case and management of the patient's care with the fellow. Bola Garvin, Ph.D. Clinical Health Psychologist CL PSYCHOLOGY MISSED VISIT ADMISSION DATE: 04/20/2025 ATTENDING PROVIDER: Sana Mir MD PRIMARY CARE PROVIDER: No primary care provider on file. DATE: 05/13/2025 TIME: 12:00P Attempted to see pt at dialysis today, informed that he was just taken to nitriles lab technician procedure. As such, unable to complete follow up psychology visit. Psychology team will continue to follow and re-attempt to see pt as availability allows. SIGNATURE: Jenny Go, PhD PATIENT NAME: Elia Weston DATE: May 13, 2025 TIME: 2:06 PM PSYCHOLOGY PAGER: [phone] CONSULT PROG Observed: 05/13/2025 11:09 AM Status: COMPLETED Source: [facility] ID: [id number] Author: CHAY QURESHI MD Service: Electrophysiology Author Type: Fellow Type: Consult Progress Note Filed: 05/13/2025 11:09 Note Text: [facility]LECTROPHYSIOLOGY CONSULT PROGRESS NOTE Elia Weston [id number] PRIMARY SERVICE: Internal Medicine CONSULTING SERVICE: Electrophysiology DATE OF ADMISSION: 04/20/2025 REASON FOR CONSULT: AV block IMPRESSION AND RECOMMENDATIONS: 45M with ESRD on HD, 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 The EP service are now consulted for rhythm management. - 13 Apr: Awaiting YONATHAN. - 14 Apr: Awaiting YONATHAN. ECG with DE continuing to prolong (~450 ms). - Apr: On the schedule for YONATHAN today. Recommendations: - Notable DE prolongation this admission (~400 ms) as compared to prior (~220 ms in Sep 2024). Unknown aetiology and largely asymptomatic, though given infectious risk we must be suspicious for IE. - BCX x2 from admission (20 April) negative. - Awaiting YONATHAN to better assess for IE - Please obtain 12-lead ECG daily to reassess DE interval - If there is no evidence of IE, given unexplained DE prolongation and degeneration of conduction, shall likely plan for PPM before discharge (leadless device would be best in this patient with difficult vascular access and high infectious risk) - The EP Consult service shall continue to follow with you Sandhya Qureshi MD Fellow in Clinical Cardiac Electrophysiology, PGY-8 Section of Cardiac Pacing and Electrophysiology Heart, Vascular and Thoracic [place] [facility] CONSULT PROG Observed: 05/13/2025 10:47 AM Status: COMPLETED Source: [facility] HNO ID: [id number] Author: GIBSON ABBOTT APRN.FLORAL ASSOCIATE Service: Nephrology Author Type: Nurse Practitioner Type: Consult Progress Note Filed: 05/13/2025 10:57 Note Text: CONSULT PROGRESS NOTE NEPHROLOGY Q6 SERVICE SERVICE DATE: 05/13/2025 SERVICE TIME: 10:47 AM SUBJECTIVE INTERVAL HISTORY: -Patient seen on dialysis, single evaluation. Orders confirmed and documented per LEONEL. -Resting comfortable on 2L NC, no new complaints. -EP following, suspicious for IE - awaiting YONATHAN MEDICATIONS: Current Facility-Administered Medications Medication Dose Route Frequency NaCl 0.9% iv flush bag 20 mL INTRAVENOUS PRN acetaminophen 650 mg tab(s) (TYLENOL) 650 mg ORAL q 6 H PRN aspirin 81 mg chewable tab(s) 81 mg ORAL DAILY midodrine 20 mg tab(s) (PROAMATINE) 20 mg ORAL q 8 H cinacalcet 60 mg tab(s) (SENSIPAR) 60 mg ORAL DAILY sevelamer carbonate 800 mg tab(s) (RENVELA) 800 mg ORAL TID w MEALS oxyCODONE IR 10 mg tab(s) (ROXICODONE) 10 mg ORAL q 6 H PRN polyethylene glycol 3350 17 g packet 17 g ORAL DAILY calcitriol 1.5 mcg cap(s) (ROCALTROL) 1.5 mcg ORAL -WE- LORazepam 0.25 mg tab(s) (ATIVAN) 0.25 mg ORAL DAILY PRN fentaNYL 50 mcg/mL 25 mcg injection (SUBLIMAZE) 25 mcg INTRAVENOUS DAILY PRN warfarin order for discharge OTHER PRN ascorbic acid 500 mg chewable tab(s) 500 mg ORAL DAILY pyridoxine (vitamin B6) 50 mg tab(s) (VITAMIN B6) 50 mg ORAL DAILY vitamin A 10,000 Units cap(s) (AQUASOL A) 10,000 Units ORAL DAILY senna 8.6 mg tab(s) (SENOKOT) 8.6 mg ORAL/FEEDING TUBE BID fentaNYL 50 mcg/mL 50 mcg injection (SUBLIMAZE) 50 mcg INTRAVENOUS DAILY PRN melatonin 3 mg tab(s) 3 mg ORAL/FEEDING TUBE AT BEDTIME PRN Darbepoetin [place] In Polysorbat 60 mcg injection (ARANESP) 60 mcg SUBCUTANEOUS q Wed warfarin 3 mg tab(s) (COUMADIN) 3 mg ORAL/FEEDING TUBE ONCE - WARFARIN OBJECTIVE PHYSICAL EXAM: BP (!) 108/38 Pulse 62 Temp 36.8 ?C (98.2 ?F) (Oral) Resp 18 Ht 177 cm (5' 9.69) Wt 115.9 kg (255 lb 8.2 oz) SpO2 96% BMI 36.99 kg/m? Intake/Output Summary (Last 24 hours) at 05/13/2025 1047 Last data filed at 05/13/2025 0559 Gross per 24 hour Intake 360 ml Output 0 ml Net 360 ml Constitutional:No acute distress, awake, alert and responsive Cardiovascular:Regular rate and rhythm 1+ BLE edema Respiratory:Normal respiratory effort on 2L NC Abdomen:Soft, non-tender, non-distended Psychiatric: Alert and oriented x self, place, time, and setting Normal mood/affect Vascular Access: Hemodialysis catheter location: Right Tunneled internal jugular. Exit site demonstrates: normal findings DATA: Diagnostic tests reviewed for today's visit: Recent Labs 05/11/25 2208 05/10/25 0342 05/10/25 0341 05/08/25 0352 05/07/25 0538 NA 136 137 137 137 136 K 4.4 5.0 5.0 4.4 4.4 CHLOR 96* 96* 96* 94* 94* CO2 27 28 26 28 26 BUN 11 16 16 24 17 CREAT 4.36* 5.45* 5.54* 6.76* 4.88* GLUC 91 79 78 99 83 ANION 13 13 15 15 16* CA 8.3* 8.2* 8.2* 7.9* 8.2* P -- 3.5 3.5 3.9 3.4 Recent Labs 05/11/25 2155 05/08/25 0352 05/07/25 0538 WBC 6.55 6.41 6.03 HB 8.5* 8.4* 8.7* HCT 28.3* 27.7* 29.4* PLT 195 194 201 ASSESSMENT: Mr. 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 Labs on presentation significant for elevated lactic acid, leukocytosis, anemia and supratherapeutic INR. Of note, his previous admission 10/12/2024-11/02/2024 was also for pain and bleeding of the wounds/skin ulcers. Biopsy was consistent with reactive ischemic changes at the time without features of Polyderma Gangrenosum or calciphylaxis. Patient was admitted under general internal medicine team for further management. Course c/b new 2nd degree AV charlie stinson type 1 - Plan for YONATHAN Nephrology consulted for ESR management. 1.ESRD -Etiology: HTN Renal Biopsy 2005 for renal failure of undetermined etiology. 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 using an angioplasty balloon per IR 2.Electrolytes/acid-base: -Controlled on IHD 3.Hypertension/Volume Status: -BP 118/34 -Midodrine 20mg q8h -Pre-weight: 115kg EDW: 114kg -Targeting 2L UF with crit line assist -Hypervolemia, improving 4.Anemia of CKD: -Hgb below ESRD goal -Iron Stores: ferritin 996 TSAT 15.4- deferring IV iron with IE work up -ANABELLA: Weekly Aranesp 5.Secondary renal hyperparathyroidism: -Calcitriol 1.5mcg TIW, Sensipar 60mg daily, Revela 800mg TID with meals PLAN: -IHD today 4.5 hours, 2K bath, 3L UF -Next IHD Friday -EDW 114kg -Weekly Aranesp -Calcitriol, Sensipar and Renvela Standard ESRD recommendations and precautions: - Strict IANDOs and Daily weight - Consider a RENAL Diet for HD patients - Fluid restriction < 1 L - Start Nephrocap or other renal multivitamin to replace water-soluble vitamins lost during dialysis - Avoid Lovenox, Gadolinium (MRI contrast), Demerol, Morphine, K-containing IVF, Mg- or Phos- containing enemas -Dose meds eGFR<10 Outpatient dialysis disposition plan: contact [phone] and ask to speak with the director of front office as needed for assistance with post-discharge arrangements. Please DO NOT schedule patient for a nephrology follow up appointment. Kidney care will be provided by the primary data warehousing engineer at their dialysis unit upon hospital discharge. Disclosures: Parts of the current progress note may have been copied from a previous note. SIGNATURE: Gibson Abbott APRN.MIKI PATIENT NAME: Elia Weston DATE: May 13, 2025 TIME: 10:47 AM PAGER: [phone] FOR AFTER HOUR CONCERNS BETWEEN 5PM - 7AM CONTACT ON-CALL NEPHROLOGY FELLOW CONSULT PROG Observed: 05/13/2025 8:51 AM Status: COMPLETED Source: [facility]NO ID: [id number] Author: KIMBERLY LYNN APRN.FLORAL ASSOCIATE Service: Wound Care Team Author Type: Nurse Practitioner Type: Consult Progress Note Filed: 05/13/2025 08:54 Note Text: Wound Care Consult Team Assessment Note: PATIENT NAME: Elia Weston WCCT attempted to see patient to follow up on wounds today at 0848, patient is out of room at dialysis at this time. Per note yesterday, plan was for bedside RN to change dressings yesterday and take new photos of the wounds. On chart review there are no new photos available of the wounds. Spoke to bedside RN Steve- RACHEL to take new photos of the wounds during today's dressing changes. Will attempt to see again at a future date. Kimberly Lynn APRN.FLORAL ASSOCIATE THERAPY NT Observed: 05/13/2025 7:39 AM Status: COMPLETED Source: [facility] HNO ID: [id number] Author: RENÉE MARTINES PT, DPT Service: Physical Therapy Author Type: Physical Therapist Type: Therapy (PT/OT/Speech/Resp) Filed: 05/13/2025 07:40 Note Text: PHYSICAL THERAPY MISSED VISIT SERVICE DATE: 05/13/2025 SERVICE TIME: 07 ROOM: [place] [id number] (Q6 - DIALYSIS) Patient not seen due to Test / Procedure. SIGNATURE: Renée Martines PT, DPT PATIENT NAME: Elia Weston DATE: May 13, 2025 TIME: 7:39 AM PT PNL PPP Collected: 05/13/2025 7:12 AM Status: F Source: [facility] Order Comment: Specimen Type : BLOOD SPECIMEN Ordering Facility: [facility] Address: [address] [place] [address] TYPE CODE TESTS RESULT OUT OF RANGE REFERENCE UNITS LAB 5902-2(LOINC) Prothrombin time 23.8 High 9.7-13.0 sec LAB 6301-6(LOINC) INR PPP 2.3 High 0.9-1.3 Result Comment: Vitamin K An tagonist (VKA) Therapeutic Range: INR 2 to 3 (Target INR of 2.5) Note: For patients treated with VKA drugs, such as warfarin, the [place] [employer] 2012 Guideline recommends a therapeutic INR range of 2 to 3 (target INR of 2.5). This recommendation includes high-risk patients with antiphospholipid syndrome with previous arterial or venous thromboembolism, current-generation mechanical or bioprosthetic aortic heart valve replacement. Note: Patients with mechanical aortic valve replacement and additional risk factors for thromboembolic events (atrial fibrillation, previous thromboembolism, LV dysfunction, hypercoagulable conditions) or an older generation mechanical AVR (i.e., ball in-Cage) or any mechanical MVR should have a INR therapeutic range of 2.5 to 3.5 (target INR of 3). Ranjit YOUSSEF, et al. Chest 2012, 141:7S-47S Kevin RA, et al. JAC 2017, 70: 252-289 Performed By: #### [id number] # ### [facility] CLIA [id number] [address] [place] [address] OF [facility] PROGRESS Observed: 05/13/2025 6:12 AM Status: COMPLETED Source: [facility] HNO ID: [id number] Author: SANA MIR MD Service: Hospital Medicine Author Type: Physician Type: Progress Notes Filed: 05/13/2025 14:30 Note Text: DEPARTMENT OF HOSPITAL MEDICINE PROGRESS NOTE SERVICE DATE: 05/13/2025 SERVICE TIME: 6:12 AM Hospital Medicine/Primary Attending: Sana Mir MD NIGHT AND WEEKEND COVERAGE: [facility] COVERAGE: Nights: [phone], please page Team Jeffrey Haq; overnight/admitting pager [phone] Subjective Chief Complaint: Pain and chronic chest wound bleeding INTERVAL HPI: Mr. 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 Patient was hospitalized in September 2024 to October 2024 for pain and bleeding from the wounds. Patient was seen by dermatology back then for his skin ulcers. Biopsy performed and was most c/w reactive ischemic changes without features of Pyoderma Gangrenosum or Calciphylaxis. Now, plan for venoplasty with IR pending improvement in INR. Dermatology consulted and underwent steroid trial at wound edge. He was bridged to warfarin while here given his history of mechanical valve. Stay further complicated by new bradycardia, found to have Mobitz 1 second-degree AV block for which cardiology/EP was consulted. Overnight Events: No acute overnight events Afebrile, hemodynamically stable, on room air Patient is most concerned with his electricity being shut off, discussed working with Case Management. He denies any bleeding from chest wounds, chest pain, palpitation, shortness of breath. Received 3 mg of Warfarin 05/11, INR subtherapeutic overnight at 2.0 > 2.1 in AM, goal 2.5-3.5 NAEO Vitals: Slightly low BP @108/38 overnight Dialysis scheduled for today morning (05/13/25) AM labs, including INR pending. Patient says his chest pain is much better, but his wounds are still better. Current Facility-Administered Medications Medication Dose Route Frequency NaCl 0.9% iv flush bag 20 mL INTRAVENOUS PRN acetaminophen 650 mg tab(s) (TYLENOL) 650 mg ORAL q 6 H PRN aspirin 81 mg chewable tab(s) 81 mg ORAL DAILY midodrine 20 mg tab(s) (PROAMATINE) 20 mg ORAL q 8 H cinacalcet 60 mg tab(s) (SENSIPAR) 60 mg ORAL DAILY sevelamer carbonate 800 mg tab(s) (RENVELA) 800 mg ORAL TID w MEALS oxyCODONE IR 10 mg tab(s) (ROXICODONE) 10 mg ORAL q 6 H PRN polyethylene glycol 3350 17 g packet 17 g ORAL DAILY calcitriol 1.5 mcg cap(s) (ROCALTROL) 1.5 mcg ORAL -WE- LORazepam 0.25 mg tab(s) (ATIVAN) 0.25 mg ORAL DAILY PRN fentaNYL 50 mcg/mL 25 mcg injection (SUBLIMAZE) 25 mcg INTRAVENOUS DAILY PRN warfarin order for discharge OTHER PRN ascorbic acid 500 mg chewable tab(s) 500 mg ORAL DAILY pyridoxine (vitamin B6) 50 mg tab(s) (VITAMIN B6) 50 mg ORAL DAILY vitamin A 10,000 Units cap(s) (AQUASOL A) 10,000 Units ORAL DAILY senna 8.6 mg tab(s) (SENOKOT) 8.6 mg ORAL/FEEDING TUBE BID fentaNYL 50 mcg/mL 50 mcg injection (SUBLIMAZE) 50 mcg INTRAVENOUS DAILY PRN melatonin 3 mg tab(s) 3 mg ORAL/FEEDING TUBE AT BEDTIME PRN Darbepoetin Osito In Polysorbat 60 mcg injection (ARANESP) 60 mcg SUBCUTANEOUS q Wed Objective PHYSICAL EXAM: BP 108/38 Pulse 62 Temp (Src) 98.2 (Oral) Resp 18 Ht 5' 9.685 (1.77m) Wt 255 lb 8.2 oz (115.9kg) SpO2 96% BMI 36.99 kg/(m2). O2 Therapy: Continuous Positive Airway Pressure Physical Exam Performed GENERAL: Alert, no distress, cooperative SKIN: Right and Left anterior and posterior chest wounds: chronic, bleeding, no purulent discharge. LUNGS: Lungs clear to auscultation, Good diaphragmatic excursion CARDIAC: Normal S1 and S2; no rubs, murmurs, or gallops ABDOMEN: Abdomen soft, non-tender, BS normal, No masses or organomegaly Lines, Drains, and Airways Line Duration Peripheral 04/26/25 2[facility] Right Forearm 20 Gauge 16 days Dialysis / Apheresis Double Lumen 04/29/25 1005 [facility] Tunneled Right Internal Jugular 13 days DATA: Diagnostic tests reviewed for today's visit: Most recent labs Most recent imaging Most recent EKG Labs: Latest Reference Range AND Units 05/10/25 03:41 05/10/25 03:42 05/11/25 16:36 05/11/25 21:55 05/11/25 22:08 05/12/25 11:36 Sodium 136 - 144 mmol/L 137 137 136 Potassium 3.7 - 5.1 mmol/L 5.0 5.0 4.4 Chloride 98 - 107 mmol/L 96 (L) 96 (L) 96 (L) CO2 22 - 30 mmol/L 26 28 27 BUN 9 - 24 mg/dL 16 16 11 Creatinine 0.73 - 1.22 mg/dL 5.54 (H) 5.45 (H) 4.36 (H) Glucose 74 - 99 mg/dL 78 79 91 Protein, Total 6.3 - 8.0 g/dL 7.6 Calcium 8.5 - 10.2 mg/dL 8.2 (L) 8.2 (L) 8.3 (L) Phosphorus 2.7 - 4.8 mg/dL 3.5 3.5 Albumin 3.9 - 4.9 g/dL 3.5 (L) 3.6 (L) 3.6 (L) Bilirubin, Total 0.2 - 1.3 mg/dL 0.5 Alkaline Phosphatase 38 - 113 U/L 163 (H) ALT 10 - 54 U/L 14 AST 14 - 40 U/L 26 Anion Gap 8 - 15 mmol/L 15 13 13 eGFR >=60 mL/min/1.73m? 12 (L) 13 (L) 16 (L) WBC 3.70 - 11.00 k/uL 6.55 RBC 4.20 - 6.00 m/uL 3.01 (L) Hemoglobin 13.0 - 17.0 g/dL 8.5 (L) Hematocrit 39.0 - 51.0 % 28.3 (L) Platelet Count 150 - 400 k/uL 195 MCV 80.0 - 100.0 fL 94.0 MCH 26.0 - 34.0 pg 28.2 MCHC 30.5 - 36.0 g/dL 30.0 (L) MPV 9.0 - 12.7 fL 11.3 RDW-CV 11.5 - 15.0 % 19.8 (H) Absolute nRBC <0.01 k/uL <0.01 PT Sec 9.7 - 13.0 sec 50.5 (H) 21.9 (H) 21.1 (H) 21.2 (H) PT INR 0.9 - 1.3 5.2 (H) 2.1 (H) 2.0 (H) 2.1 (H) (L): Data is abnormally low (H): Data is abnormally high Imaging: Transthoracic echocardiogram 05/06/25: EF: 60%, left ventricular hypertrophy, right ventricle normal, trace tricuspid valve regurgitation, trace pulmonic valve regurgitation, no pericardial effusion, aorta normal in size CXR 04/21/25: TDC with tip in RA. Increase of perihilar and basilar opacities with volume loss, suggesting atelectasis, possible underlying edema/inflammation. Blunting of L CP angle, which may represent tiny effusion or pleural thickening. CT A/P 04/22/25: No abdominal or pelvic subcutaneous fluid collection of gas. Redemonstrated diffuse subcutaneous extensive abdominal wall collaterals, similar to prior CTA 10/17/2024. CT chest 04/22/25: extensive chest wall collaterals, few areas of skin ulceration, no areas of drainable fluid collection. Findings consistent with central venous stenoses. Few patchy groundglass opacities, may be related to mild pulm edema US A/V FISTULA GRAFT UNL (05/12/25): IMPRESSION No evidence of patent arteriovenous fistulas bilaterally Assessment/Plan Problem List Assessment AND Plan Bleeding from open wound of chest wall, right, initial encounter Secondary hyperparathyroidism, renal (HCC) ESRD on hemodialysis (HCC) History of non-ST elevation myocardial infarction (NSTEMI) Vitamin D deficiency S/P MVR (mitral valve replacement) Supratherapeutic INR Atrial fibrillation (HCC) Acute on chronic blood loss anemia Adjustment disorder with depressed mood Acquired hypothyroidism Acquired stenosis of superior vena cava Venous collateral circulation Status post Maze operation for atrial fibrillation Ulcers, venous (HCC) Wounds, multiple Anemia due to multiple mechanisms Hemorrhage from open wound of left chest wall Open chest wound, right, sequela Open chest wound, left, sequela Back wound, unspecified laterality, sequela Open wound of abdomen Open wound of right thigh Bleeding from wound Difficult intravenous access Hypervolemia Skin ulcers (HCC) Vitamin C deficiency Vitamin A deficiency Vitamin B6 deficiency Second degree AV block, Mobitz type I HOSPITAL COURSE: Elia Weston is a 45 year old male with extensive PMH, significant for ESRD on HD (MWF) last session 04/18 (skipped Friday since he came to ED), CAD s/p CABG, severe MS s/p MVR on Warfarin (goal INR of 2.5-3.5), pAfib s/p maze procedure and RADHA clip and chronic chest/abdominal/back wounds (3 years) likely secondary to ischemia in context of SVC syndrome and multiple thrombosis, who presented to the ED with 1-day of left chronic chest wound bleeding. Admitted for management of bleeding, and on transfer to [facility], patient began to have significant bleeding from R chest wound. Continuous pressure was applied and bleeding stopped. Now s/p FFP and RBC transfusions as appropriate. Initially started on Vanc/Zosyn given elevated ESR/CRP and WBC, no infectious concern on further imaging with improved lactate WBC, so ABx were stopped. Dermatology and wound care consulted. IR consulted, planning for venoplasty given INR reversal. 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 Hx of hemorrhagic shock from bleeding abdominal wounds - presenting with acute worsening of pain and bleeding from wounds. Denies purulent discharge from wounds. - Leukocytosis + Elevated CRP 22.1 and ESR 133 + Elevated lactate on presentation; concerned for infected wounds/soft tissue infection. Started on IV vanc/zosyn, later d/janie due to low infectious concern (04/21-04/25) - On admission, acute rise in lactate in light of acute significant bleeding and drop in HGB (8.6 from 9.5 in ED) likely secondary to hypovolemia, also missed dialysis - CT venogram on 10/19/24 with b/l brachiocephalic stenosis w b/l subclavian vein occlusion, extensive venous collaterals - 10/22/24: Venoplasty completed by IR, removed L femoral TDC, exchanged R TDC - blood cultures 04/20/25 with NG5D x2 - AMET for hypotension 80/50, s/p 500 cc LR bolus, scheduled midodrine with improved repeat 102/63 - lactate 2.4 from 1.7, improved from 3.2 at admission. Completed 5d course of IV vanc/zosyn (04/21-04/25) - CT chest and CT A/P 04/22/25 with no drainable fluid collections, extensive chest collaterals - nutritional workup: B12 elevated, folate wnl, iron low 26, TIBC low 137, trans sat wnl, low vit D 22.9, zinc 69 wnl, low vit A 0.10 - 04/29/25: Venoplasty: completed by IR. 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 Right upper chest tunneled dialysis catheter was exchanged over a wire for a new on; ready for use PLAN: - IR consulted: > venoplasty 04/29/2025 - no complications - Derm consulted: > ongoing nutritional workup > discontinued clobetasol 0.05% ointment BID per derm, lesion over R scapula, try to simulate tx of PG and assess response > [facility] Derm f/u outpatient - continue vitamin D supplement 5000 unit(s), ascorbic acid 500mg/day, vit B6 50mg/day, vit A 10,000 units/day - wound care team consulted, appreciate care - pain control: tylenol 650 mg q6h prn and oxycodone 10 mg po q6h PRN. > IV fent for dressing changes as needed - plastic surgery consulted: > no indication for surgical intervention at this time - Cautious fluid resuscitation in light of acute bleeding and ESRD anuric on HD - Chest wound dressings to be changed every day - Bilateral Upper Extremity doppler 05/12: No evidence of patent arteriovenous fistulas bilaterally #Supratherapeutic INR #CAD s/p CABG #Severe MS s/p mechanical MVR on coumadin #Paroxysmal Afib s/p multiple DCCV s/p Maze procedure + RADHA clip (07/2021) - atrial fibrillation and severe mitral stenosis s/p mechanical mitral valve replacement with On-x valve (INR goal 2.5-3.5), Maze procedure and RADHA clip on 08/21/2021. - Goal INR 2.5- 3.5; on warfarin 2.5 mg daily although patient not sure of dose, has been changed recently; last dose of warfarin Thursday 04/19 - INR elevated to 5.1 on admission, improved to 3.9 s/p 2u FFP 04/21 - possible etiology of supratherapeutic INR: warfarin dose (given patient not sure of home dose) vs malnutrition vs liver disease (less likely given AST/ALT wnl) - INR elevated again to 5.3, patient received po vitamin K 5 mg 04/25. Improved to 1.7 - INR 3.3 on 05/08 - INR of 5.2 on 05/10/25. Warfarin held today. PLAN: - given subtherapeutic INR and no intervention by plastic surgery planned, continue bridging to warfarin > goal INR 2.5 - 3.5, given mechanical valve. - Heparin discontinued 05/07 - Daily INR - Follows with Dr. Moreno (cardiology in [place]) for mgmt of Coumadin, will need follow-up outpatient - 1mg Vitamin K IV given to reverse Warfarin, in view of undergoing YONATHAN, with YONATHAN lab protocol of INR<4. - INR 05/11/25: 2.0, 3 mg Warfarin given. - INR 2.1 05/12/2025 warfarin increased to 3.5mg - INR 2.3 on 05695, keeping dose of Warfarin at 3.5mg, will monitor INR and monitor if dose needs to be adjusted. - Patient is NPO overnight on 05/13/25 for YONATHAN, limiting step right now being availability/scheduling # Second-degree AV Block, Mobitz Type I - Patient having multiple episodes of bradycardia in the hospital with low blood pressures - Magnesium level 2.2 (05/05/25) - EKG (05/05/25) shows Second degree AV block, mobitz type 1 - EKG (05/06/25): shows sinus rhythm with 2nd degree AV shantell, mobitz type 1 - Transthoracic echocardiogram 05/06/25: EF: 60%, left ventricular hypertrophy, right ventricle normal, trace tricuspid valve regurgitation, trace pulmonic valve regurgitation, no pericardial effusion, aorta normal in size PLAN: - Cardiology team consulted, appreciate recs - Echocardiogram completed, results as above - Cardiology suggest EP consult given risk of progression of 2nd degree AVB, type 1 to higher degree AVB - EP consult on 05/09/25: Consult in process, signed note pending - EP Consult on 05/09/25 Recommendations: - Suggest YONATHAN to assess for possible endocarditis or other pathology - No current pacemaker indications, however, further investigation warranted due to rapid progression since Sep 2024. - YONATHAN ordered, NPO midnight - EP progress note (05/12/25) : Daily EKG to assess DE interval and possible progression of AV block, ordered #Constipation - Last recorded bowel movement was on 05/09/25 PLAN: - Polyethylene glycol daily - Senna BID #ESRD on HD via Right TDC #Chronic Hypotension #Secondary 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 - iHD at [facility] through R. Tunneled HD catheter MWF - Last dialysis session Friday04/18/2025; missed Fri session because he presented to [facility] ED - anuric at baseline per patient - Serum P=9.7 - completed HD 04/21, now on MWF - PTH elevated 578, Ca 8.3 low PLAN: - nephrology consulted: > continue MWF HD schedule > continue calcitriol MWF - Continue Sensipar, renvela with meals - continue home Midodrine 20mg every 8 hours #Anemia of Chronic Disease/ESRD - Baseline hemoglobin 9-11 - iron studies 12/2024: iron 33, TIBC 156, Iron sat 21, ferritin 1327 - Hgb dropping iso bleeding wounds, as above. - received 1u pRBC 04/21, Hgb from 7.3 -> 7.7 post-transfusion - Hgb 6.9 on 04/22, s/p additional 2u pRBC with Hgb in ~8s PLAN: - Hgb goal >8, 8.4 (05/08/25). - chronic wound mgmt, as above - Iron levels of 36, TIBC- WNL, Ferritin high at 996 on 05/08/25, Replete Iron levels for ANABELLA, per Nephrology recommendation, however due to concerns for ongoing possible endocarditis, we will refrain from IV Iron use until further workup. #Code status - Full # Diet - renal # VTE PPx - warfarin # Dispo Planning - Pending clinical course, SW consulted for recent unemployment, c/f food insecurity #Adjustment disorder? #Low mood - Psychology consulted 05/10/25 - Music therapy - Art therapy - Healing services - Aroma therapy, spiritual services, and brief inpatient psychotherapy ordered per Psychology's recommendation, 05/11/25. Medication and Non-Pharmacologic VTE Prophylaxis/Anticoagulants Anticoagulant AND Antiplatelet Medications (From admission, onward) Start Dose Route Frequency Last Action Ordered Stop 04/21/25 0900 aspirin 81 mg chewable tab(s) 81 mg PO DAILY Given, 05/12 0914 04/21/25 0316 -- 04/10/25 1015 activity - mobilize patient ([place]) 04/04/25 0900 graduated compression stockings ([place]) VTE Prophylaxis: VTE prophylaxis appropriate Disposition: To be determined Plan of care discussed with Provider, RN, Patient Plan communicated to: Family Dae Miner MD PGY-1 [place], [phone] My Pager Attending Note I evaluated the patient and personally participated in the mendoza components. I agree with the resident's findings and plan as documented and have discussed the case and management of the patient's care with the resident. Dr. Cui will assume care of Jeffrey Haq service tomorrow 05/14/25. 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 #Chest wall wounds c/b bleeding Chest wound bleeding on presentation was partly in setting of elevated INR (5.1) which was reversed with vitamin K. Evaluated by dermatology and plastic surgery. Wound care following as well, dressing being changed daily. 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 Underwent balloon angioplasty of R innominate vein stenosis with IR on 04/29/25. These wounds have a tendency to bleed due to high collateral pressure in the setting of his severe vascular disease. Doppler ultrasound of prior fistulas on 05/12 confirmed that they are not patent. Bleeding has largely been resolved. #ESRD On IHD MWF. Underwent R TDC exchange on 04/29 with IR. This has been functioning well. #Mobitz 1 05/06 noted to have Mobitz 1 with very prolonged DE interval. Echo obtained and has limited views due to body habitus and chest wall wounds, but is largely stable. Cardiology recommended EP eval. EP recommended YONATHAN to rule out IE as etiology of DE prolongation. INR must be <4 for YONATHAN. YONATHAN was scheduled for today, however patient unwilling to proceed without general anesthesia. This cannot be scheduled until next week. Per EP service, if there is no IE, patient WILL need pacemaker prior to discharge. INR must be <3 for pacemaker placement. #s/p Mechanical MVR On warfarin for history of mechanical mitral valve. INR 2.3 today. Typically his goal is 2.5-3.5, however must be <3 for potential pacemaker. Will avoid being supratherapeutic given his known wounds with propensity to bleed. Patient does not wish to resume heparin at this time, though INR is 2.3, due to his fear of bleeding. Risks/benefits discussed with him today. We can re-discuss this tomorrow based on his INR. His warfarin is managed by his outpatient parts delivery driver. He can go to outpatient lab for INR check at any time without appointment. Sana Mir MD [facility] Medicine CONSULT PROG Observed: 05/12/2025 5:14 PM Status: COMPLETED Source: [facility] HNO ID: [id number] Author: CHAY QURESHI MD Service: Electrophysiology Author Type: Fellow Type: Consult Progress Note Filed: 05/12/2025 17:14 Note Text: [facility] ELECTROPHYSIOLOGY CONSULT PROGRESS NOTE Elia Herrera Enrico [id number] PRIMARY SERVICE: Internal Medicine CONSULTING SERVICE: Electrophysiology DATE OF ADMISSION: 04/20/2025 REASON FOR CONSULT: AV block IMPRESSION AND RECOMMENDATIONS: 45M with ESRD on HD, 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 The EP service are now consulted for rhythm management. - Apr: Awaiting YONATHAN. - Apr: Awaiting YONATHAN. ECG with DE continuing to prolong (~450 ms). Recommendations: - Notable DE prolongation this admission (~400 ms) as compared to prior (~220 ms in Sep 2024). Unknown aetiology and largely asymptomatic, though given infectious risk we must be suspicious for IE. - Awaiting YONATHAN to better assess for IE - Please obtain 12-lead ECG daily to reassess DE interval - The EP Consult service shall continue to follow with you Sandhya Qureshi MD Fellow in Clinical Cardiac Electrophysiology, PGY-8 Section of Cardiac Pacing and Electrophysiology Heart, Vascular and Thoracic [place] [facility] CASE MANAGEM Observed: 05/12/2025 2:30 PM Status: COMPLETED Source: [facility] HNO ID: [id number] Author: VICENTA TORRES LSW Service: Care Management Author Type: Ppa Teacher Type: Care Mgt Progress Note Filed: 05/12/2025 14:32 Note Text: CARE MANAGEMENT PROGRESS NOTE SERVICE DATE: 05/12/2025 SERVICE TIME: 2:30 PM LOS: 21 days Met with pt at bedside. Assisted with completion of form from his electric provider. Faxed completed form to [employer] at [phone]. Original provided to pt. Anticipate wknd dc. Pt will transport himself home. Dialysis coordinator will update his outpatient dialysis center. CM following. SIGNATURE: CANDY Flores PATIENT NAME: Elia Weston DATE: May 12, 2025 TIME: 2:30 PM CONSULT PROG Observed: 05/12/2025 1:55 PM Status: COMPLETED Source: [facility] HNO ID: [id number] Author: KIMBERLY LYNN APRN.CNP Service: Wound Care Team Author Type: Nurse Practitioner Type: Consult Progress Note Filed: 05/12/2025 13:58 Note Text: Wound Care Consult Team Assessment Note: PATIENT NAME: Elia Weston Attempted to see patient to re-evaluate wounds today at 1050. Patient declined due to his pain being inadequately controlled. Found his RN for today and brought him to the bedside. RN stated patient could not get pain medication at that time. Given patient could not get pain medication at that time, patient declined assessment of his wounds today. Educated patient on the importance and needs of evaluation and management of wound care however the patient continued to decline wound evaluation today. Current plan is for patient's nurse today to change the dressings when patient can receive pain meds and will take updated photos of the wounds. Will attempt again at a future date. Kimberly Lynn APRN.CNP ALLIED HEALTH Observed: 05/12/2025 12:30 PM Status: COMPLETED Source: [facility] HNO ID: [id number] Author: NOAH JUAREZ Chaplain Service: Spiritual Care Author Type: Radio News Anchor Type: Allied Health Filed: 05/12/2025 14:26 Note Text: SPIRITUAL CARE ASSESSMENT SERVICE DATE: 05/12/2025 SERVICE TIME: 12:30 Visit with: Patient Length of visit (minutes): 15 Pentecostalism / Spirituality: Alevism Reason: Emotional Support ASSESSMENT Emotional Disposition: Despair, Determined, Hopeful, and Peaceful Relational Concerns: Struggling with Self-care Spiritual Concerns: Struggling with meaning of illness or diagnosis INTERVENTIONS Empowerment: Encouraged adherence to treatment plan, Encouraged focus on present, Normalized experience of patient/family, and Provided Healing Services Exploration: Explored emotional needs and resources, Explored hope, and Explored spiritual needs and resources Relationship Building: Provided hospitality and Utilized Self-disclosure Ritual: Provided prayer OUTCOMES Spiritual resources utilized PLAN Will follow as circumstances allow COMMENTS: SIGNATURE: Chaplain Frank PATIENT NAME: Elia Weston DATE: May 12, 2025 TIME: 2:22 PM PAGER/CONTACT #: [phone] PLAN OF CARE Observed: 05/12/2025 12:28 PM Status: COMPLETED Source: [facility] HNO ID: [id number] Author: ?, ?, ? Service: ? Author Type: ? Type: Plan of Care Filed: 05/12/2025 12:33 Note Text: [facility] MEDICINE MOBILE DISCHARGE TEAM NOTE SERVICE DATE: May 12, 2025 SERVICE TIME: 12:28 PM Primary Attending: Sana Mir MD MOBILE DISCHARGE TEAM COVERAGE: Friday to Friday: 7:30am to 4:00pm DISCHARGE CRITICAL ISSUES: DISCHARGE DISPOSITION: Pending ANTICIPATED DISCHARGE DATE: May 12, 2025 ANTICIPATED DISCHARGE TIME: PICK-UP TIME CONFIRMED: Not known at this time PENDING FOR DISCHARGE: Cardiac Testing ECHO TRANSESOPHAGEAL Called Mary Molina who transferred me to [facility]. Scheduling Team / RN stated that Pt will not be seen today and they will do their best for ERLINDA tomorrow. [facility] that completion of the ECHO will initiate DC. Informed Dr. Mir. PATIENT AGREES TO BEDSIDE DELIVERY: Not known at this time FOLLOW UP: Future Appointments Date Time Provider Department Center 08/09/2025 10:40 AM Delvin Beltran MD [facility] Main - A Bld SIGNATURE: Manny Levy PATIENT NAME: Elia Weston DATE: May 12, 2025 TIME: 12:28 PM PT PNL PPP Collected: 11:36 AM Status: F Source: [facility] Order Comment: Specimen Type : BLOOD SPECIMEN Ordering Facility: [facility] Address: [address] [place] [address] TYPE CODE TESTS RESULT OUT OF RANGE REFERENCE UNITS LAB 5902-2(LOINC) Prothrombin time 21.2 High 9.7-13.0 sec LAB 6301-6(LOINC) INR PPP 2.1 High 0.9-1.3 Result Comment: Vitamin K An tagonist (VKA) Therapeutic Range: INR 2 to 3 (Target INR of 2.5) Note: For patients treated with VKA drugs, such as warfarin, the [place] [employer] 2012 Guideline recommends a therapeutic INR range of 2 to 3 (target INR of 2.5). This recommendation includes high-risk patients with antiphospholipid syndrome with previous arterial or venous thromboembolism, current-generation mechanical or bioprosthetic aortic heart valve replacement. Note: Patients with mechanical aortic valve replacement and additional risk factors for thromboembolic events (atrial fibrillation, previous thromboembolism, LV dysfunction, hypercoagulable conditions) or an older generation mechanical AVR (i.e., ball in-Cage) or any mechanical MVR should have a INR therapeutic range of 2.5 to 3.5 (target INR of 3). Ranjit GH, et al. Chest 2012, 141:7S-47S Kevin RA, et al. [facility] 2017, 70: 252-289 Performed By: #### [id number] # ### [facility] CLIA [id number] [address] [place] [address] [place] CONSULT PROG Observed: 05/12/2025 9:45 AM Status: COMPLETED Source: [facility] HNO ID: [id number] Author: BOLA GARVIN, PhD Service: Psychology Author Type: Psychologist Type: Consult Progress Note Filed: 05/12/2025 14:44 Note Text: Attestation signed by Bola Garvin, PhD at 05/12/2025 2:44 PM STAFF ATTESTATION This service has been performed by a fellow under the direction of myself as supervising psychologist. I was readily available to furnish assistance and direction throughout the encounter. I agree with the fellow's findings and plan as documented and have discussed the case and management of the patient's care with the fellow. Bola Garvin, Ph.D. Clinical Health Psychologist PSYCHOLOGY BRIEF NOTE ADMISSION DATE: 04/20/2025 ATTENDING PROVIDER: Sana Mir MD PRIMARY CARE PROVIDER: No primary care provider on file. DATE: 05/12/2025 TIME: 9:45AM Attempted to see patient for psychology follow up visit. Upon arrival, patient was not available in his room and appeared out for procedure. Psychology will continue to follow as able. SIGNATURE: Janak Landry PsyD PATIENT NAME: Elia Weston DATE: May 12, 2025 TIME: 1:15 PM PSYCHOLOGY PAGER: [phone] A/V FISTULA GRAFT UNL [facility] LAB Observed: 05/12/2025 9:36 AM Status: F Source: [facility] Non-Invasive Vascular [facility] J35 Upper Extremity Arterial Duplex Limited Date of service/time: 05/12/2025 9:36:35 AM Name: ELIA WESTON Date of : 1980 Age: 45 years Gender: M Clinical Indication Remote history of bilateral arteriovenous fistulas. Check for patency. TECHNIQUE -------- An arterial duplex ultrasound examination was performed, including grayscale imaging and color Doppler and spectral Doppler examination of the below mentioned arteries. FINDINGS -------- RIGHT SIDE Subclavian artery proximal: PSV: 121 cm/s. EDV: 0 cm/s. Multiphasic waveform. Brachial artery mid: PSV: 71 cm/s. EDV: 7 cm/s. Multiphasic waveform. LEFT SIDE Subclavian artery mid: PSV: 79 cm/s. EDV: 3 cm/s. Multiphasic waveform. Brachial artery mid: PSV: 96 cm/s. EDV: 0 cm/s. Multiphasic waveform. IMPRESSION No evidence of patent arteriovenous fistulas bilaterally. RIGHT SIDE Subclavian artery proximal: patent . Normal high resistive Doppler signal present. Brachial artery mid: patent . Normal high resistive Doppler signal present. Segment of occluded prior arteriovenous conduit noted at distal upper arm. LEFT SIDE Subclavian artery mid: patent . Normal high resistive Doppler signal present. Brachial artery mid: patent . Normal high resistive Doppler signal present. Technologist: Vel Marrero RVT Ordering physician: SANA MIR Interpreting physician: LEONIDAS Winston DO Final CC [employer] [facility] Image : [id number] See Link below for Image ECG COMPLETE Observed: 05/12/2025 6:28 AM Status: F Source: [facility] Ventricular Rate : 72 BPM QRS Duration : 58 ms Q-T Interval : 446 ms QTC Calculation(Bazett) : 488 ms Calculated R Assumption : 152 degrees Calculated T Assumption : 96 degrees WARNING: INTERPRETATION OF THIS ECG, ALTHOUGH ATTEMPTED, MAY BE ADVERSELY AFFECTED BY DATA QUALITY ACCELERATED JUNCTIONAL RHYTHM RIGHT AXIS DEVIATION CANNOT EXCLUDE ANTEROSEPTAL MYOCARDIAL INFARCTION , AGE UNDETERMINED ABNORMAL ECG Confirmed by HARRIS BOWER MD ([id number]) on 06/06/2025 12:29:20 AM NAME : ELIA WESTON PID : [id number] : 1980 Gender : Male Race : ORD : [id number] Procedure Date : May 12 2025 06:28:52 Edit Date : Jun 06 2025 00:29:26 Diagnosis: WARNING: INTERPRETATION OF THIS ECG, ALTHOUGH ATTEMPTED, MAY BE ADVERSELY AFFECTED BY DATA QUALITY ACCELERATED JUNCTIONAL RHYTHM RIGHT AXIS DEVIATION CANNOT EXCLUDE ANTEROSEPTAL MYOCARDIAL INFARCTION , AGE UNDETERMINED ABNORMAL ECG Confirmed by HARRIS BOWER MD ([id number]) on 06/06/2025 12:29:20 AM Test Reason : BANDAGE ON ALL, BP Location : 97 : G90 G090-21 Overread By : HARRIS BOWER MD Edited By : HARRIS BOWER MD Referred By : , Acquired by : KIT HINOJOSA PROGRESS Observed: 05/12/2025 6:05 AM Status: COMPLETED Source: [facility] HNO ID: [id number] Author: SANA MIR MD Service: General Internal Medicine Author Type: Physician Type: Progress Notes Filed: 05/12/2025 12:54 Note Text: DEPARTMENT OF HOSPITAL MEDICINE PROGRESS NOTE SERVICE DATE: 05/12/2025 SERVICE TIME: 6:06 AM Hospital Medicine/Primary Attending: Sana Mir MD NIGHT AND WEEKEND COVERAGE: [facility] COVERAGE: Nights: [phone], please page Team Jeffrey Haq; overnight/admitting pager [phone] Subjective Chief Complaint: Pain and chronic chest wound bleeding INTERVAL HPI: Mr. 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 Patient was hospitalized in September 2024 to October 2024 for pain and bleeding from the wounds. Patient was seen by dermatology back then for his skin ulcers. Biopsy performed and was most c/w reactive ischemic changes without features of Pyoderma Gangrenosum or Calciphylaxis. Now, plan for venoplasty with IR pending improvement in INR. Dermatology consulted and underwent steroid trial at wound edge. He was bridged to warfarin while here given his history of mechanical valve. Stay further complicated by new bradycardia, found to have Mobitz 1 second-degree AV block for which cardiology/EP was consulted. Overnight Events: No acute overnight events Afebrile, hemodynamically stable, on room air Patient is most concerned with his electricity being shut off, discussed working with Case Management. He denies any bleeding from chest wounds, chest pain, palpitation, shortness of breath. Received 3 mg of Warfarin 05/11, INR subtherapeutic overnight at 2.0 > 2.1 in AM, goal 2.5. 3.5 Current Facility-Administered Medications Medication Dose Route Frequency NaCl 0.9% iv flush bag 20 mL INTRAVENOUS PRN acetaminophen 650 mg tab(s) (TYLENOL) 650 mg ORAL q 6 H PRN aspirin 81 mg chewable tab(s) 81 mg ORAL DAILY midodrine 20 mg tab(s) (PROAMATINE) 20 mg ORAL q 8 H cinacalcet 60 mg tab(s) (SENSIPAR) 60 mg ORAL DAILY sevelamer carbonate 800 mg tab(s) (RENVELA) 800 mg ORAL TID w MEALS oxyCODONE IR 10 mg tab(s) (ROXICODONE) 10 mg ORAL q 6 H PRN polyethylene glycol 3350 17 g packet 17 g ORAL DAILY calcitriol 1.5 mcg cap(s) (ROCALTROL) 1.5 mcg ORAL MO-WE- LORazepam 0.25 mg tab(s) (ATIVAN) 0.25 mg ORAL DAILY PRN fentaNYL 50 mcg/mL 25 mcg injection (SUBLIMAZE) 25 mcg INTRAVENOUS DAILY PRN warfarin order for discharge OTHER PRN ascorbic acid 500 mg chewable tab(s) 500 mg ORAL DAILY pyridoxine (vitamin B6) 50 mg tab(s) (VITAMIN B6) 50 mg ORAL DAILY vitamin A 10,000 Units cap(s) (AQUASOL A) 10,000 Units ORAL DAILY senna 8.6 mg tab(s) (SENOKOT) 8.6 mg ORAL/FEEDING TUBE BID fentaNYL 50 mcg/mL 50 mcg injection (SUBLIMAZE) 50 mcg INTRAVENOUS DAILY PRN melatonin 3 mg tab(s) 3 mg ORAL/FEEDING TUBE AT BEDTIME PRN Darbepoetin [place] In Polysorbat 60 mcg injection (ARANESP) 60 mcg SUBCUTANEOUS q Wed Objective PHYSICAL EXAM: BP 108/52 Pulse 89 Temp (Src) 98.2 (Oral) Resp 18 Wt 255 lb 8.2 oz (115.9kg) SpO2 100% O2 Therapy: Continuous Positive Airway Pressure Physical Exam Performed GENERAL: Alert, no distress, cooperative SKIN: Right and Left anterior and posterior chest wounds: chronic, bleeding, no purulent discharge. LUNGS: Lungs clear to auscultation, Good diaphragmatic excursion CARDIAC: Normal S1 and S2; no rubs, murmurs, or gallops ABDOMEN: Abdomen soft, non-tender, BS normal, No masses or organomegaly Lines, Drains, and Airways Line Duration Peripheral 07/29/25 2100 [facility] Right Forearm 20 Gauge 15 days Dialysis / Apheresis Double Lumen 04/29/25 1005 [facility] Tunneled Right Internal Jugular 12 days DATA: Diagnostic tests reviewed for today's visit: Most recent labs Most recent imaging Most recent EKG Labs: Latest Reference Range AND Units 05/09/25 13:50 05/10/25 03:41 05/10/25 03:42 Sodium 136 - 144 mmol/L 137 137 Potassium 3.7 - 5.1 mmol/L 5.0 5.0 Chloride 98 - 107 mmol/L 96 (L) 96 (L) CO2 22 - 30 mmol/L 26 28 BUN 9 - 24 mg/dL 16 16 Creatinine 0.73 - 1.22 mg/dL 5.54 (H) 5.45 (H) Glucose 74 - 99 mg/dL 78 79 Calcium 8.5 - 10.2 mg/dL 8.2 (L) 8.2 (L) Phosphorus 2.7 - 4.8 mg/dL 3.5 3.5 Albumin 3.9 - 4.9 g/dL 3.5 (L) 3.6 (L) Anion Gap 8 - 15 mmol/L 15 13 eGFR >=60 mL/min/1.73m? 12 (L) 13 (L) PT Sec 9.7 - 13.0 sec 54.6 (H) 50.5 (H) PT INR 0.9 - 1.3 5.7 (H) 5.2 (H) (L): Data is abnormally low (H): Data is abnormally high Imaging: Transthoracic echocardiogram 05/06/25: EF: 60%, left ventricular hypertrophy, right ventricle normal, trace tricuspid valve regurgitation, trace pulmonic valve regurgitation, no pericardial effusion, aorta normal in size CXR 04/21/25: TDC with tip in RA. Increase of perihilar and basilar opacities with volume loss, suggesting atelectasis, possible underlying edema/inflammation. Blunting of L CP angle, which may represent tiny effusion or pleural thickening. CT A/P 04/22/25: No abdominal or pelvic subcutaneous fluid collection of gas. Redemonstrated diffuse subcutaneous extensive abdominal wall collaterals, similar to prior CTA 10/17/2024. CT chest 04/22/25: extensive chest wall collaterals, few areas of skin ulceration, no areas of drainable fluid collection. Findings consistent with central venous stenoses. Few patchy groundglass opacities, may be related to mild pulm edema Assessment/Plan Problem List Assessment AND Plan Bleeding from open wound of chest wall, right, initial encounter Secondary hyperparathyroidism, renal (HCC) ESRD on hemodialysis (HCC) History of non-ST elevation myocardial infarction (NSTEMI) Vitamin D deficiency S/P MVR (mitral valve replacement) Supratherapeutic INR Atrial fibrillation (HCC) Acute on chronic blood loss anemia Adjustment disorder with depressed mood Acquired hypothyroidism Acquired stenosis of superior vena cava Venous collateral circulation Status post Maze operation for atrial fibrillation Ulcers, venous (HCC) Wounds, multiple Anemia due to multiple mechanisms Hemorrhage from open wound of left chest wall Open chest wound, right, sequela Open chest wound, left, sequela Back wound, unspecified laterality, sequela Open wound of abdomen Open wound of right thigh Bleeding from wound Difficult intravenous access Hypervolemia Skin ulcers (HCC) Vitamin C deficiency Vitamin A deficiency Vitamin B6 deficiency Second degree AV block, Mobitz type I HOSPITAL COURSE: Elia Weston is a 45 year old male with extensive PMH, significant for ESRD on HD (MWF) last session 04/18 (skipped Friday since he came to ED), CAD s/p CABG, severe MS s/p MVR on Warfarin (goal INR of 2.5-3.5), pAfib s/p maze procedure and RADHA clip and chronic chest/abdominal/back wounds (3 years) likely secondary to ischemia in context of SVC syndrome and multiple thrombosis, who presented to the ED with 1-day of left chronic chest wound bleeding. Admitted for management of bleeding, and on transfer to [facility], patient began to have significant bleeding from R chest wound. Continuous pressure was applied and bleeding stopped. Now s/p FFP and RBC transfusions as appropriate. Initially started on Vanc/Zosyn given elevated ESR/CRP and WBC, no infectious concern on further imaging with improved lactate WBC, so ABx were stopped. Dermatology and wound care consulted. IR consulted, planning for venoplasty given INR reversal. 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 Hx of hemorrhagic shock from bleeding abdominal wounds - presenting with acute worsening of pain and bleeding from wounds. Denies purulent discharge from wounds. - Leukocytosis + Elevated CRP 22.1 and ESR 133 + Elevated lactate on presentation; concerned for infected wounds/soft tissue infection. Started on IV vanc/zosyn, later d/janie due to low infectious concern (04/21-04/25) - On admission, acute rise in lactate in light of acute significant bleeding and drop in HGB (8.6 from 9.5 in ED) likely secondary to hypovolemia, also missed dialysis - CT venogram on 10/19/24 with b/l brachiocephalic stenosis w b/l subclavian vein occlusion, extensive venous collaterals - 10/22/24: Venoplasty completed by IR, removed L femoral TDC, exchanged R TDC - blood cultures 04/20/25 with NG5D x2 - AMET for hypotension 80/50, s/p 500 cc LR bolus, scheduled midodrine with improved repeat 102/63 - lactate 2.4 from 1.7, improved from 3.2 at admission. Completed 5d course of IV vanc/zosyn (04/21-04/25) - CT chest and CT A/P 04/22/25 with no drainable fluid collections, extensive chest collaterals - nutritional workup: B12 elevated, folate wnl, iron low 26, TIBC low 137, trans sat wnl, low vit D 22.9, zinc 69 wnl, low vit A 0.10 - 04/29/25: Venoplasty: completed by IR. 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 Right upper chest tunneled dialysis catheter was exchanged over a wire for a new on; ready for use PLAN: - IR consulted: > venoplasty 04/29/2025 - no complications - Derm consulted: > ongoing nutritional workup > discontinued clobetasol 0.05% ointment BID per derm, lesion over R scapula, try to simulate tx of PG and assess response > [facility] Derm f/u outpatient - continue vitamin D supplement 5000 unit(s), ascorbic acid 500mg/day, vit B6 50mg/day, vit A 10,000 units/day - wound care team consulted, appreciate care - pain control: tylenol 650 mg q6h prn and oxycodone 10 mg po q6h PRN. > IV fent for dressing changes as needed - plastic surgery consulted: > no indication for surgical intervention at this time - Cautious fluid resuscitation in light of acute bleeding and ESRD anuric on HD - Chest wound dressings to be changed every day - Bilateral Upper Extremity doppler 05/12: No evidence of patent arteriovenous fistulas bilaterally #Supratherapeutic INR #CAD s/p CABG #Severe MS s/p mechanical MVR on coumadin #Paroxysmal Afib s/p multiple DCCV s/p Maze procedure + RADHA clip (07/2021) - atrial fibrillation and severe mitral stenosis s/p mechanical mitral valve replacement with On-x valve (INR goal 2.5-3.5), Maze procedure and RADHA clip on 08/21/2021. - Goal INR 2.5- 3.5; on warfarin 2.5 mg daily although patient not sure of dose, has been changed recently; last dose of warfarin Thursday 04/19 - INR elevated to 5.1 on admission, improved to 3.9 s/p 2u FFP 04/21 - possible etiology of supratherapeutic INR: warfarin dose (given patient not sure of home dose) vs malnutrition vs liver disease (less likely given AST/ALT wnl) - INR elevated again to 5.3, patient received po vitamin K 5 mg 04/25. Improved to 1.7 - INR 3.3 on 05/08 - INR of 5.2 on 05/10/25. Warfarin held today. PLAN: - given subtherapeutic INR and no intervention by plastic surgery planned, continue bridging to warfarin > goal INR 2.5 - 3.5, given mechanical valve. - Heparin discontinued 05/07 - Daily INR - Follows with Dr. Moreno (cardiology in [place]) for mgmt of Coumadin, will need follow-up outpatient - 1mg Vitamin K IV given to reverse Warfarin, in view of undergoing YONATHAN, with YONATHAN lab protocol of INR<4. - INR 05/11/25: 2.0, 3 mg Warfarin given. - INR 2.1 05/12/2025 warfarin increased to 3.5 # Second-degree AV Block, Mobitz Type I - Patient having multiple episodes of bradycardia in the hospital with low blood pressures - Magnesium level 2.2 (05/05/25) - EKG (05/05/25) shows Second degree AV block, mobitz type 1 - EKG (05/06/25): shows sinus rhythm with 2nd degree AV shantell, mobitz type 1 - Transthoracic echocardiogram 05/06/25: EF: 60%, left ventricular hypertrophy, right ventricle normal, trace tricuspid valve regurgitation, trace pulmonic valve regurgitation, no pericardial effusion, aorta normal in size PLAN: - Cardiology team consulted, appreciate recs - Echocardiogram completed, results as above - Cardiology suggest EP consult given risk of progression of 2nd degree AVB, type 1 to higher degree AVB - EP consult on 05/09/25: Consult in process, signed note pending - EP Consult on 05/09/25 Recommendations: -Suggest YONATHAN to assess for possible endocarditis or other pathology - No current pacemaker indications, however, further investigation warranted due to rapid progression since Sep 2024. - YONATHAN ordered, NPO midnight #Constipation - Last recorded bowel movement was on 05/07/25 PLAN: - Polyethylene glycol daily - Start Senna BID #ESRD on HD via Right TDC #Chronic Hypotension #Secondary 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 - iHD at [facility] [place] through R. Tunneled HD catheter MWF - Last dialysis session Friday04/18/2025; missed Fri session because he presented to [facility] ED - anuric at baseline per patient - Serum P=9.7 - completed HD 04/21, now on MWF - PTH elevated 578, Ca 8.3 low PLAN: - nephrology consulted: > continue MWF HD schedule > continue calcitriol MWF - Continue Sensipar, renvela with meals - continue home Midodrine 20mg every 8 hours #Anemia of Chronic Disease/ESRD - Baseline hemoglobin 9-11 - iron studies 12/2024: iron 33, TIBC 156, Iron sat 21, ferritin 1327 - Hgb dropping iso bleeding wounds, as above. - received 1u pRBC 04/21, Hgb from 7.3 -> 7.7 post-transfusion - Hgb 6.9 on 04/22, s/p additional 2u pRBC with Hgb in ~8s PLAN: - Hgb goal >8, 8.4 (05/08/25). - chronic wound mgmt, as above - Iron levels of 36, TIBC- WNL, Ferritin high at 996 on 05/08/25, Replete Iron levels for ANABELLA, per Nephrology recommendation, however due to concerns for ongoing possible endocarditis, we will refrain from IV Iron use until further workup. #Code status - Full # Diet - renal # VTE PPx - warfarin # Dispo Planning - Pending clinical course, SW consulted for recent unemployment, c/f food insecurity #Adjustment disorder? #Low mood - Psychology consulted 05/10/25 - Music therapy - Art therapy - Healing services - Aroma therapy, spiritual services, and brief inpatient psychotherapy ordered per Psychology's recommendation, 05/11/25. Medication and Non-Pharmacologic VTE Prophylaxis/Anticoagulants Anticoagulant AND Antiplatelet Medications (From admission, onward) Start Dose Route Frequency Last Action Ordered Stop 04/21/25 0900 aspirin 81 mg chewable tab(s) 81 mg PO DAILY Given, 05/11 1731 04/21/25 0316 -- 04/10/25 1015 activity - [place]ize [place] ([place]) 04/04/25 0900 graduated compression stockings ([place] VTE Prophylaxis: VTE prophylaxis appropriate Disposition: To be determined Plan of care discussed with Provider, RN, Patient Plan communicated to: Family Jean-Paul Garcia MD PGY 1 Internal Medicine Resident [phone] 05/12/2025 6:06 AM Attending Note I evaluated the patient and personally participated in the mendoza components. I agree with the resident's findings and plan as documented and have discussed the case and management of the patient's care with the resident. 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 No bleeding of chest wounds overnight. Doppler ultrasound today confirmed that prior fistulas are not patent, so this is not contributing to his chest wall varices. On IHD MWF. Underwent balloon angioplasty of R innominate vein stenosis and R TDC exchange on 04/29 with vascular surgery. 05/06 noted to have Mobitz 1 with very prolonged DE interval. Echo obtained and has limited views but is largely stable. Cardiology recommended EP eval. EP recommended YONATHAN, INR must be <4 for YONATHAN. Awaiting YONATHAN and final recommendations from EP. On warfarin for history of mechanical mitral valve. INR 2.1 today. Will avoid being supratherapeutic given plan for YONATHAN and his known wounds with propensity to bleed. Warfarin managed by his outpatient parts delivery driver. Sana Mir MD Associate Staff [facility] Medicine COMP METAB 1999 PNL SERPL Collected: 10:08 PM Status: F Source: [facility] Order Comment: Specimen Type : BLOOD SPECIMEN Ordering Facility: [facility] Address: [address] [place] [address] TYPE CODE TESTS RESULT OUT OF RANGE REFERENCE UNITS LAB 2885-2(LOINC) Prot SerPl-mCnc 7.6 6.3-8.0 g/dL LAB 1751-7(LOINC) Albumin SerPl-mCnc 3.6 Low 3.9-4.9 g/dL LAB 32187-7(LOINC) Calcium SerPl-mCnc 8.3 Low 8.5-10.2 mg/dL LAB 1975-2(LOINC) Bilirub SerPl-mCnc 0.5 0.2-1.3 mg/dL LAB 6768-6(LOINC) ALP SerPl-cCnc 163 High 38-113 U/L LAB 1920-8(LOINC) AST SerPl-cCnc 26 14-40 U/L LAB 1742-6(LOINC) ALT SerPl-cCnc 14 10-54 U/L LAB 2345-7(LOINC) Glucose SerPl-mCnc 91 74-99 mg/dL Result Comment: The [place] Diabetes Association (ADA) provides guidance for cutoff values for fasting glucose and random glucose. The ADA defines fasting as no caloric intake for at least 8 hours. Fasting plasma glucose results between 100 to 125 mg/dL indicate increased risk for diabetes (prediabetes). Fasting plasma glucose results greater than or equal to 126 mg/dL meet the criteria for diagnosis of diabetes. In the absence of unequivocal hyperglycemia, results should be confirmed by repeat testing. In a patient with classic symptoms of hyperglycemia or hyperglycemic crisis, random plasma glucose results greater than or equal to 200 mg/dL meet the criteria for diagnosis of diabetes. Reference: Standards of Medical Care in Diabetes 2016, [place] Diabetes Association. Diabetes Care. 2016.39(Suppl 1). LAB 3094-0(LOINC) BUN SerPl-mCnc 11 9-24 mg/dL LAB 2160-0(LOINC) Creat SerPl-mCnc 4.36 High 0.73-1.22 mg/dL LAB 2951-2(LOINC) Sodium SerPl-sCnc 136 136-144 mmol/L LAB 2823-3(LOINC) Potassium SerPl-sCnc 4.4 3.7-5.1 mmol/L LAB 2075-0(LOINC) Chloride SerPl-sCnc 96 Low 98-107 mmol/L LAB 2028-9(LOINC) CO2 SerPl-sCnc 27 22-30 mmol/L LAB 43516-5(LOINC) Anion Gap SerPl-sCnc 13 8-15 mmol/L LAB 33208-2(LOINC) eGFRcr SerPlBld CKD-EPI 2020 16 Low >=60 mL/min/1. 73m??? Result Comment: Estimated Gl omerular Filtration Rate (eGFR) is calculated using the 2020 CKD-EPI creatinine equation. This equation utilizes serum creatinine, sex, and age as parameters. The creatinine assay has traceable calibration to isotope dilution-mass spectrometry. Refer to KDIGO guidelines for clinical interpretation. In patients with unstable renal function, e.g. those with acute kidney injury, the eGFR may not accurately reflect actual GFR. Performed By: #### [id number] # ### [facility] CLIA [id number] [address] [place] [address] [place] PT PNL PPP Collected: 05/11/2025 9:55 PM Status: F Source: [facility] Order Comment: Specimen Type : BLOOD SPECIMEN Ordering Facility: [facility] Address: [address] [place] [address] TYPE CODE TESTS RESULT OUT OF RANGE REFERENCE UNITS LAB 5902-2(LOINC) Prothrombin time 21.1 High 9.7-13.0 sec LAB 6301-6(LOINC) INR PPP 2.0 High 0.9-1.3 Result Comment: Vitamin K An tagonist (VKA) Therapeutic Range: INR 2 to 3 (Target INR of 2.5) Note: For patients treated with VKA drugs, such as warfarin, the [place] [employer] 2012 Guideline recommends a therapeutic INR range of 2 to 3 (target INR of 2.5). This recommendation includes high-risk patients with antiphospholipid syndrome with previous arterial or venous thromboembolism, current-generation mechanical or bioprosthetic aortic heart valve replacement. Note: Patients with mechanical aortic valve replacement and additional risk factors for thromboembolic events (atrial fibrillation, previous thromboembolism, LV dysfunction, hypercoagulable conditions) or an older generation mechanical AVR (i.e., ball in-Cage) or any mechanical MVR should have a INR therapeutic range of 2.5 to 3.5 (target INR of 3). Ranjit GH, et al. Chest 2012, 141:7S-47S Kevin RA, et al. [facility] 2017, 70: 252-289 Performed By: #### [id number] # ### [facility] CLIA [id number] [address] [place] [address] [place] [facility] CBC PNL BLD AUTO Collected: 5 9:55 PM Status: F Source: [facility] Order Comment: Specimen Type : BLOOD SPECIMEN Ordering Facility: [facility] Address: [address] [place] [address] TYPE CODE TESTS RESULT OUT OF RANGE REFERENCE UNITS LAB 6690-2(LOINC) WBC # Bld Auto 6.55 3.70-11.00 k/uL LAB 789-8(LOINC) RBC # Bld Auto 3.01 Low 4.20-6.00 m/uL LAB 718-7(LOINC) Hgb Bld-mCnc 8.5 Low 13.0-17.0 g/dL LAB 4544-3(LOINC) Hct VFr Bld Auto 28.3 Low 39.0-51.0 % LAB 787-2(LOINC) MCV RBC Auto 94.0 80.0-100.0 fL LAB 785-6(LOINC) MCH RBC Qn Auto 28.2 26.0-34.0 pg LAB 786-4([facility]) MCHC RBC Auto-mCnc 30.0 Low 30.5-36.0 g/dL LAB 13208-5([facility]) RDW RBC-Rto 19.8 High 11.5-15.0 % LAB 777-3([facility]) Platelet # Bld Auto 195 150-400 k/uL LAB 56138-5([facility]) PMV Bld Auto 11.3 9.0-12.7 fL LAB 771-6([facility]) nRBC # Bld Auto <0.01 <0.01 k/uL Performed By: #### [id number] # ### [facility] CLIA [id number] [address] [place] [address] CONSULT PROG Observed: 05/11/2025 6:55 PM Status: COMPLETED Source: [facility] HNO ID: [id number] Author: CHAY QURESHI MD Service: Electrophysiology Author Type: Fellow Type: Consult Progress Note Filed: 05/11/2025 18:59 Note Text: [facility] ELECTROPHYSIOLOGY CONSULT PROGRESS NOTE Elia Weston [id number] PRIMARY SERVICE: Internal Medicine CONSULTING SERVICE: Electrophysiology DATE OF ADMISSION: 04/20/2025 REASON FOR CONSULT: AV block IMPRESSION AND RECOMMENDATIONS: 45M with ESRD on HD, 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 The EP service are now consulted for rhythm management. - Apr: Awaiting YONATHAN. Recommendations: - Notable DE prolongation this admission (~400 ms) as compared to prior (~220 ms in Sep 2024). Unknown aetiology and largely asymptomatic, though given infectious risk we must be suspicious for IE. - Awaiting YONATHAN to better assess for IE - Please obtain repeat 12-lead ECG tomorrow to reassess DE interval - The EP Consult service shall continue to follow with you MJim Qureshi MD Fellow in Clinical Cardiac Electrophysiology, PGY-8 Section of Cardiac Pacing and Electrophysiology Heart, Vascular and Thoracic [place] [facility] Observed: 05/11/2025 5:02 PM Status: COMPLETED Source: [facility] HNO ID: [id number] Author: MARKO BARNHART Art Therapist Service: Art Therapy Author Type: Therapist Type: Allied Health Filed: 05/11/2025 17:11 Note Text: ART THERAPY NOTE SERVICE DATE: 05/11/2025 SERVICE TIME: 4:20 Referred By: Resident/Fellow Reason for Referral: Depressed mood COMMENTS: Consult was received and appreciated. Pt was unavailable upon attempt, nursing was bedside and requested therapist return another time. Will follow up as able. SIGNATURE: Nathan Eng Therapist PATIENT NAME: Elia Weston DATE: May 11, 2025 TIME: 5:09 PM PAGER/CONTACT #: [phone] PT PNL PPP Collected: 05/11/2025 4:36 PM Status: F Source: [facility] Order Comment: Specimen Type : BLOOD SPECIMEN Ordering Facility: [facility] Address: [address] [place] [address] TYPE CODE TESTS RESULT OUT OF RANGE REFERENCE UNITS LAB 5902-2(LOINC) Prothrombin time 21.9 High 9.7-13.0 sec LAB 6301-6(LOINC) INR PPP 2.1 High 0.9-1.3 Result Comment: Vitamin K An tagonist (VKA) Therapeutic Range: INR 2 to 3 (Target INR of 2.5) Note: For patients treated with VKA drugs, such as warfarin, the [employer] [place] [employer] 2012 Guideline recommends a therapeutic INR range of 2 to 3 (target INR of 2.5). This recommendation includes high-risk patients with antiphospholipid syndrome with previous arterial or venous thromboembolism, current-generation mechanical or bioprosthetic aortic heart valve replacement. Note: Patients with mechanical aortic valve replacement and additional risk factors for thromboembolic events (atrial fibrillation, previous thromboembolism, LV dysfunction, hypercoagulable conditions) or an older generation mechanical AVR (i.e., ball in-Cage) or any mechanical MVR should have a INR therapeutic range of 2.5 to 3.5 (target INR of 3). Ranjit YOUSSEF, et al. Chest 2012, 141:7S-47S Kevin RUSHING et al. [facility] 2017, 70: 252-289 Performed By: #### [id number] # ### [facility] CLIA [id number] [address] [place] [address] ALLIED HEALTH Observed: 05/11/2025 3:10 PM Status: COMPLETED Source: [facility] HNO ID: [id number] Author: NOAH JUAREZ Chaplain Service: Spiritual Care Author Type: Radio News Anchor Type: Allied Health Filed: 05/11/2025 16:07 Note Text: SPIRITUALCARE Spiritual Care Visit- Brief Note Name: Elia Weston Date: May 11, 2025 Notes: Radio News Anchor responded to SC/HS referrals. Attempted visit twice with patient twice. On the first visit patient was said to have gone for dialysis, and on the second visit patient was asleep. call center dispatcher private watchman would be informed for follow up. Radio News Anchor availability 21/04 SIGNATURE: Chaplain Frank PATIENT NAME: Elia Weston DATE: May 11, 2025 TIME: 3:57 PM This is an electronically created document. IF PRINTED, PLEASE DO NOT REMOVE FROM THE CHART OR MODIFY PRINTED COPY. CONSULT PROG Observed: 05/11/2025 11:32 AM Status: COMPLETED Source: [facility] HNO ID: [id number] Author: KIMBERLY LYNN APRN.FLORAL ASSOCIATE Service: Wound Care Team Author Type: Nurse Practitioner Type: Consult Progress Note Filed: 05/11/2025 11:33 Note Text: Wound Care Consult Team Assessment Note: PATIENT NAME: Elia Weston WCCT attempted to see patient to follow up on wounds today at 1009, patient is out of room at dialysis at this time. Will attempt to see again at a future date. Kimberly Lynn APRN.FLORAL ASSOCIATE CONSULT PROG Observed: 05/11/2025 10:52 AM Status: COMPLETED Source: [facility] HNO ID: [id number] Author: GIBSON ABBOTT APRN.CNP Service: Nephrology Author Type: Nurse Practitioner Type: Consult Progress Note Filed: 05/11/2025 11:07 Note Text: CONSULT PROGRESS NOTE NEPHROLOGY Q6 SERVICE SERVICE DATE: 05/11/2025 SERVICE TIME: 10:52 AM SUBJECTIVE INTERVAL HISTORY: -Patient seen on dialysis, single evaluation. Orders confirmed and documented per LEONEL. -Resting comfortable on 2L NC with no new complaints. -EP following for new 2nd degree AV charlie stinson type 1 - Plan for YONATHAN MEDICATIONS: Current Facility-Administered Medications Medication Dose Route Frequency NaCl 0.9% iv flush bag 20 mL INTRAVENOUS PRN acetaminophen 650 mg tab(s) (TYLENOL) 650 mg ORAL q 6 H PRN aspirin 81 mg chewable tab(s) 81 mg ORAL DAILY midodrine 20 mg tab(s) (PROAMATINE) 20 mg ORAL q 8 H cinacalcet 60 mg tab(s) (SENSIPAR) 60 mg ORAL DAILY sevelamer carbonate 800 mg tab(s) (RENVELA) 800 mg ORAL TID w MEALS oxyCODONE IR 10 mg tab(s) (ROXICODONE) 10 mg ORAL q 6 H PRN polyethylene glycol 3350 17 g packet 17 g ORAL DAILY calcitriol 1.5 mcg cap(s) (ROCALTROL) 1.5 mcg ORAL MO-WE- LORazepam 0.25 mg tab(s) (ATIVAN) 0.25 mg ORAL DAILY PRN fentaNYL 50 mcg/mL 25 mcg injection (SUBLIMAZE) 25 mcg INTRAVENOUS DAILY PRN warfarin order for discharge OTHER PRN ascorbic acid 500 mg chewable tab(s) 500 mg ORAL DAILY pyridoxine (vitamin B6) 50 mg tab(s) (VITAMIN B6) 50 mg ORAL DAILY vitamin A 10,000 Units cap(s) (AQUASOL A) 10,000 Units ORAL DAILY senna 8.6 mg tab(s) (SENOKOT) 8.6 mg ORAL/FEEDING TUBE BID fentaNYL 50 mcg/mL 50 mcg injection (SUBLIMAZE) 50 mcg INTRAVENOUS DAILY PRN melatonin 3 mg tab(s) 3 mg ORAL/FEEDING TUBE AT BEDTIME PRN OBJECTIVE PHYSICAL EXAM: BP 93/84 Pulse (!) 54 Temp 36.6 ?C (97.9 ?F) (Oral) Resp 18 Wt 115.9 kg (255 lb 8.2 oz) SpO2 100% BMI 36.99 kg/m? No intake or output data in the 24 hours ending 05/11/25 1052 Constitutional:No acute distress, awake, alert and responsive Cardiovascular:Regular rate and rhythm 1+ BLE edema Respiratory:Normal respiratory effort on 2L NC Abdomen:Soft, non-tender, non-distended Psychiatric: Alert and oriented x self, place, time, and setting Normal mood/affect Vascular Access: Hemodialysis catheter location: Right Tunneled internal jugular. Exit site demonstrates: normal findings DATA: Diagnostic tests reviewed for today's visit: Recent Labs 05/10/25 0342 05/10/25 0341 05/08/25 0352 05/07/25 0538 05/06/25 0856 05/05/25 0551 NA 137 137 137 136 138 137 K 5.0 5.0 4.4 4.4 4.7 4.3 CHLOR 96* 96* 94* 94* 96* 94* CO2 28 26 28 26 26 28 BUN 16 16 24 17 32* 21 CREAT 5.45* 5.54* 6.76* 4.88* 7.53* 5.29* GLUC 79 78 99 83 90 93 ANION 13 15 15 16* 16* 15 CA 8.2* 8.2* 7.9* 8.2* 7.7* 8.1* P 3.5 3.5 3.9 3.4 5.4* 4.1 MG -- -- -- -- -- 2.2 Recent Labs 05/08/25 0352 05/07/25 0538 05/06/25 0856 WBC 6.41 6.03 6.39 HB 8.4* 8.7* 7.9* HCT 27.7* 29.4* 26.0* PLT 194 201 194 ASSESSMENT: Mr. 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 Labs on presentation significant for elevated lactic acid, leukocytosis, anemia and supratherapeutic INR. Of note, his previous admission 10/12/2024-11/02/2024 was also for pain and bleeding of the wounds/skin ulcers. Biopsy was consistent with reactive ischemic changes at the time without features of Polyderma Gangrenosum or calciphylaxis. Patient was admitted under general internal medicine team for further management. Course c/b new 2nd degree AV charlie stinson type 1 - Plan for YONATHAN Nephrology consulted for ESR management. 1.ESRD -Etiology: HTN Renal Biopsy 2005 for renal failure of undetermined etiology. 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 using an angioplasty balloon per IR 2.Electrolytes/acid-base: -Controlled on IHD 3.Hypertension/Volume Status: -BP 132/42 -Midodrine 20mg q8h -Pre-weight: 119kg EDW: 114kg -Targeting 3L UF with crit line assist -Hypervolemia 4.Anemia of CKD: -Hgb below ESRD goal -Iron Stores: ferritin 996 TSAT 15.4- deferring IV iron with IE work up -ANABELLA: Weekly Aranesp 5.Secondary renal hyperparathyroidism: -Calcitriol 1.5mcg TIW, Sensipar 60mg daily, Revela 800mg TID with meals PLAN: -IHD today 4.5 hours, 2K bath, 3L UF -Next IHD Friday -EDW 114kg -Dose weekly Aranesp Standard ESRD recommendations and precautions: - Strict IANDOs and Daily weight - Consider a RENAL Diet for HD patients - Fluid restriction < 1 L - Start Nephrocap or other renal multivitamin to replace water-soluble vitamins lost during dialysis - Avoid Lovenox, Gadolinium (MRI contrast), Demerol, Morphine, K-containing IVF, Mg- or Phos- containing enemas -Dose meds eGFR<10 Outpatient dialysis disposition plan: contact [phone] and ask to speak with the director of front office as needed for assistance with post-discharge arrangements. Please DO NOT schedule patient for a nephrology follow up appointment. Kidney care will be provided by the primary data warehousing engineer at their dialysis unit upon hospital discharge. Disclosures: Parts of the current progress note may have been copied from a previous note. SIGNATURE: Gibson Abbott APRN.CNP PATIENT NAME: Elia Weston DATE: May 11, 2025 TIME: 10:52 AM PAGER: [phone] FOR AFTER HOUR CONCERNS BETWEEN 5PM - 7AM CONTACT ON-CALL NEPHROLOGY FELLOW CASE MANAGEM Observed: 05/11/2025 10:31 AM Status: COMPLETED Source: [facility] HNO ID: [id number] Author: VICENTA TORRES LSW Service: Care Management Author Type: Ppa Teacher Type: Care Mgt Progress Note Filed: 05/11/2025 10:32 Note Text: CARE MANAGEMENT PROGRESS NOTE SERVICE DATE: 05/11/2025 SERVICE TIME: 10:31 AM LOS: 20 days DISCHARGE PLAN Discharge plan discussed with: n/a Anticipated Discharge Plan: Home with Home Care, accepted by [facility] Anticipated Discharge Date: TBD DISCHARGE TRANSPORTATION Patient has been informed that discharge time is 12pm on day of discharge. Discharge Transportation: pt reports he drove himself here and plans on driving home Discharge Barriers: n/a CM following. SIGNATURE: CANDY Flores PATIENT NAME: Elia Weston DATE: May 11, 2025 TIME: 10:31 AM ALLIED HEALTH Observed: 05/11/2025 7:10 AM Status: COMPLETED Source: [facility] HNO ID: [id number] Author: JAROD SOLIS Chaplain Service: Spiritual Care Author Type: Radio News Anchor Type: Allied Health Filed: 05/11/2025 07:17 Note Text: SPIRITUAL CARE ASSESSMENT SERVICE DATE: 05/11/2025 SERVICE TIME: 6:15pm Visit with: Patient Length of visit (minutes): 60 Pentecostalism / Spirituality: Adventist/Alevism Reason: Referral from: Other: ? Purpose of Referral (if stated): Prayer ASSESSMENT Emotional Disposition: Hopeful Relational Concerns: Struggling with Self-care Spiritual Concerns: Struggling with meaning of illness or diagnosis INTERVENTIONS Empowerment: Provided Healing Services Exploration: Facilitated life review Relationship Building: Provided silent and supportive presence Ritual: Provided prayer OUTCOMES Patient expressed hope irrespective of future outcomes PLAN Will follow as circumstances allow COMMENTS: SIGNATURE: Chaplain Fei PATIENT NAME: Elia Weston DATE: May 11, 2025 TIME: 7:10 AM PAGER/CONTACT #: [phone] PROGRESS Observed: 05/11/2025 6:38 AM Status: COMPLETED Source: [facility] HNO ID: [id number] Author: SANA MIR MD Service: Hospital Medicine Author Type: Physician Type: Progress Notes Filed: 05/11/2025 15:50 Note Text: DEPARTMENT OF HOSPITAL MEDICINE PROGRESS NOTE SERVICE DATE: 05/11/2025 SERVICE TIME: 6:38 AM Hospital Medicine/Primary Attending: Sana Mir MD NIGHT AND WEEKEND COVERAGE: [facility] COVERAGE: Nights: [phone], please page Team Jeffrey Haq; overnight/admitting pager [phone] Subjective Chief Complaint: Pain and chronic chest wound bleeding INTERVAL HPI: Mr. 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 Patient was hospitalized in September 2024 to October 2024 for pain and bleeding from the wounds. Patient was seen by dermatology back then for his skin ulcers. Biopsy performed and was most c/w reactive ischemic changes without features of Pyoderma Gangrenosum or Calciphylaxis. Now, plan for venoplasty with IR pending improvement in INR. Dermatology consulted and underwent steroid trial at wound edge. He was bridged to warfarin while here given his history of mechanical valve. Stay further complicated by new bradycardia, found to have Mobitz 1 second-degree AV block for which cardiology/EP was consulted. Overnight Events: No acute events overnight Vitals: Stable Labs stable, except INR: 5.2 on 05/10/25 (5.7 on 05/09/25). Labs Pending 05/11. Patient was no bedside and was away for his dialysis treatment. Current Facility-Administered Medications Medication Dose Route Frequency NaCl 0.9% iv flush bag 20 mL INTRAVENOUS PRN acetaminophen 650 mg tab(s) (TYLENOL) 650 mg ORAL q 6 H PRN aspirin 81 mg chewable tab(s) 81 mg ORAL DAILY midodrine 20 mg tab(s) (PROAMATINE) 20 mg ORAL q 8 H cinacalcet 60 mg tab(s) (SENSIPAR) 60 mg ORAL DAILY sevelamer carbonate 800 mg tab(s) (RENVELA) 800 mg ORAL TID w MEALS oxyCODONE IR 10 mg tab(s) (ROXICODONE) 10 mg ORAL q 6 H PRN polyethylene glycol 3350 17 g packet 17 g ORAL DAILY calcitriol 1.5 mcg cap(s) (ROCALTROL) 1.5 mcg ORAL MO-WE- LORazepam 0.25 mg tab(s) (ATIVAN) 0.25 mg ORAL DAILY PRN fentaNYL 50 mcg/mL 25 mcg injection (SUBLIMAZE) 25 mcg INTRAVENOUS DAILY PRN warfarin order for discharge OTHER PRN ascorbic acid 500 mg chewable tab(s) 500 mg ORAL DAILY pyridoxine (vitamin B6) 50 mg tab(s) (VITAMIN B6) 50 mg ORAL DAILY vitamin A 10,000 Units cap(s) (AQUASOL A) 10,000 Units ORAL DAILY senna 8.6 mg tab(s) (SENOKOT) 8.6 mg ORAL/FEEDING TUBE BID fentaNYL 50 mcg/mL 50 mcg injection (SUBLIMAZE) 50 mcg INTRAVENOUS DAILY PRN melatonin 3 mg tab(s) 3 mg ORAL/FEEDING TUBE AT BEDTIME PRN Objective PHYSICAL EXAM: BP 115/98 Pulse 61 Temp (Src) 97.9 (Oral) Resp 18 Wt 255 lb 8.2 oz (115.9kg) SpO2 100% O2 Therapy: Continuous Positive Airway Pressure, %FIO2: 21 Physical Exam Performed GENERAL: Alert, no distress, cooperative SKIN: Right and Left anterior and posterior chest wounds: chronic, bleeding, no purulent discharge. LUNGS: Lungs clear to auscultation, Good diaphragmatic excursion CARDIAC: Normal S1 and S2; no rubs, murmurs, or gallops ABDOMEN: Abdomen soft, non-tender, BS normal, No masses or organomegaly Lines, Drains, and Airways Line Duration Peripheral 04/26/25 2100 [facility] Right Forearm 20 Gauge 14 days Dialysis / Apheresis Double Lumen 04/29/25 1005 [facility] Tunneled Right Internal Jugular 11 days DATA: Diagnostic tests reviewed for today's visit: Most recent labs Most recent imaging Most recent EKG Labs: Latest Reference Range AND Units 05/09/25 13:50 05/10/25 03:41 05/10/25 03:42 Sodium 136 - 144 mmol/L 137 137 Potassium 3.7 - 5.1 mmol/L 5.0 5.0 Chloride 98 - 107 mmol/L 96 (L) 96 (L) CO2 22 - 30 mmol/L 26 28 BUN 9 - 24 mg/dL 16 16 Creatinine 0.73 - 1.22 mg/dL 5.54 (H) 5.45 (H) Glucose 74 - 99 mg/dL 78 79 Calcium 8.5 - 10.2 mg/dL 8.2 (L) 8.2 (L) Phosphorus 2.7 - 4.8 mg/dL 3.5 3.5 Albumin 3.9 - 4.9 g/dL 3.5 (L) 3.6 (L) Anion Gap 8 - 15 mmol/L 15 13 eGFR >=60 mL/min/1.73m? 12 (L) 13 (L) PT Sec 9.7 - 13.0 sec 54.6 (H) 50.5 (H) PT INR 0.9 - 1.3 5.7 (H) 5.2 (H) (L): Data is abnormally low (H): Data is abnormally high Imaging: Transthoracic echocardiogram 05/06/25: EF: 60%, left ventricular hypertrophy, right ventricle normal, trace tricuspid valve regurgitation, trace pulmonic valve regurgitation, no pericardial effusion, aorta normal in size CXR 04/21/25: TDC with tip in RA. Increase of perihilar and basilar opacities with volume loss, suggesting atelectasis, possible underlying edema/inflammation. Blunting of L CP angle, which may represent tiny effusion or pleural thickening. CT A/P 04/22/25: No abdominal or pelvic subcutaneous fluid collection of gas. Redemonstrated diffuse subcutaneous extensive abdominal wall collaterals, similar to prior CTA 10/17/2024. CT chest 04/22/25: extensive chest wall collaterals, few areas of skin ulceration, no areas of drainable fluid collection. Findings consistent with central venous stenoses. Few patchy groundglass opacities, may be related to mild pulm edema Assessment/Plan Problem List Assessment AND Plan Bleeding from open wound of chest wall, right, initial encounter Secondary hyperparathyroidism, renal (HCC) ESRD on hemodialysis (HCC) History of non-ST elevation myocardial infarction (NSTEMI) Vitamin D deficiency S/P MVR (mitral valve replacement) Supratherapeutic INR Atrial fibrillation (HCC) Acute on chronic blood loss anemia Adjustment disorder with depressed mood Acquired hypothyroidism Acquired stenosis of superior vena cava Venous collateral circulation Status post Maze operation for atrial fibrillation Ulcers, venous (HCC) Wounds, multiple Anemia due to multiple mechanisms Hemorrhage from open wound of left chest wall Open chest wound, right, sequela Open chest wound, left, sequela Back wound, unspecified laterality, sequela Open wound of abdomen Open wound of right thigh Bleeding from wound Difficult intravenous access Hypervolemia Skin ulcers (HCC) Vitamin C deficiency Vitamin A deficiency Vitamin B6 deficiency Second degree AV block, Mobitz type I HOSPITAL COURSE: Elia Weston is a 45 year old male with extensive PMH, significant for ESRD on HD (MWF) last session 04/18 (skipped Friday since he came to ED), CAD s/p CABG, severe MS s/p MVR on Warfarin (goal INR of 2.5-3.5), pAfib s/p maze procedure and RADHA clip and chronic chest/abdominal/back wounds (3 years) likely secondary to ischemia in context of SVC syndrome and multiple thrombosis, who presented to the ED with 1-day of left chronic chest wound bleeding. Admitted for management of bleeding, and on transfer to [facility], patient began to have significant bleeding from R chest wound. Continuous pressure was applied and bleeding stopped. Now s/p FFP and RBC transfusions as appropriate. Initially started on Vanc/Zosyn given elevated ESR/CRP and WBC, no infectious concern on further imaging with improved lactate WBC, so ABx were stopped. Dermatology and wound care consulted. IR consulted, planning for venoplasty given INR reversal. 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 Hx of hemorrhagic shock from bleeding abdominal wounds - presenting with acute worsening of pain and bleeding from wounds. Denies purulent discharge from wounds. - Leukocytosis + Elevated CRP 22.1 and ESR 133 + Elevated lactate on presentation; concerned for infected wounds/soft tissue infection. Started on IV vanc/zosyn, later d/janie due to low infectious concern (04/21-04/25) - On admission, acute rise in lactate in light of acute significant bleeding and drop in HGB (8.6 from 9.5 in ED) likely secondary to hypovolemia, also missed dialysis - CT venogram on 10/19/24 with b/l brachiocephalic stenosis w b/l subclavian vein occlusion, extensive venous collaterals - 10/22/24: Venoplasty completed by IR, removed L femoral TDC, exchanged R TDC - blood cultures 04/20/25 with NG5D x2 - AMET for hypotension 80/50, s/p 500 cc LR bolus, scheduled midodrine with improved repeat 102/63 - lactate 2.4 from 1.7, improved from 3.2 at admission. Completed 5d course of IV vanc/zosyn (04/21-04/25) - CT chest and CT A/P 04/22/25 with no drainable fluid collections, extensive chest collaterals - nutritional workup: B12 elevated, folate wnl, iron low 26, TIBC low 137, trans sat wnl, low vit D 22.9, zinc 69 wnl, low vit A 0.10 - 04/29/25: Venoplasty: completed by IR. 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 Right upper chest tunneled dialysis catheter was exchanged over a wire for a new on; ready for use PLAN: - IR consulted: > venoplasty 04/29/2025 - no complications - Derm consulted: > ongoing nutritional workup > discontinued clobetasol 0.05% ointment BID per derm, lesion over R scapula, try to simulate tx of PG and assess response > [facility] Derm f/u outpatient - continue vitamin D supplement 5000 unit(s), ascorbic acid 500mg/day, vit B6 50mg/day, vit A 10,000 units/day - wound care team consulted, appreciate care - pain control: tylenol 650 mg q6h prn and oxycodone 10 mg po q6h PRN. > IV fent for dressing changes as needed - plastic surgery consulted: > no indication for surgical intervention at this time - Cautious fluid resuscitation in light of acute bleeding and ESRD anuric on HD - Chest wound dressings to be changed every day - Doppler of Bilateral Upper limbs ordered to evaluate for varices on chest, and to check for patent past AV fistula accesses. - Bilateral Upper Extremity doppler pending #Supratherapeutic INR #CAD s/p CABG #Severe MS s/p mechanical MVR on coumadin #Paroxysmal Afib s/p multiple DCCV s/p Maze procedure + RADHA clip (07/2021) - atrial fibrillation and severe mitral stenosis s/p mechanical mitral valve replacement with On-x valve (INR goal 2.5-3.5), Maze procedure and RADHA clip on 08/21/2021. - Goal INR 2.5- 3.5; on warfarin 2.5 mg daily although patient not sure of dose, has been changed recently; last dose of warfarin Thursday 04/19 - INR elevated to 5.1 on admission, improved to 3.9 s/p 2u FFP 04/21 - possible etiology of supratherapeutic INR: warfarin dose (given patient not sure of home dose) vs malnutrition vs liver disease (less likely given AST/ALT wnl) - INR elevated again to 5.3, patient received po vitamin K 5 mg 04/25. Improved to 1.7 - INR 3.3 on 05/08 PLAN: - given subtherapeutic INR and no intervention by plastic surgery planned, continue bridging to warfarin > goal INR 2.5 - 3.5, given mechanical valve. - Heparin discontinued 05/07 - Daily INR - Follows with Dr. Moreno (cardiology in [place]) for mgmt of Coumadin, will need follow-up outpatient - INR on 05/09/25 pending. - INR of 5.2 on 05/10/25. Warfarin held today. - 1mg Vitamin K IV given to reverse Warfarin, in view of undergoing YONATHAN, with YONATHAN lab protocol of INR<4. - INR 05/11/25: pending # Second-degree AV Block, Mobitz Type I - Patient having multiple episodes of bradycardia in the hospital with low blood pressures - Magnesium level 2.2 (05/05/25) - EKG (05/05/25) shows Second degree AV block, mobitz type 1 - EKG (05/06/25): shows sinus rhythm with 2nd degree AV shantell, mobitz type 1 - Transthoracic echocardiogram 05/06/25: EF: 60%, left ventricular hypertrophy, right ventricle normal, trace tricuspid valve regurgitation, trace pulmonic valve regurgitation, no pericardial effusion, aorta normal in size PLAN: - Cardiology team consulted, appreciate recs - Echocardiogram completed, results as above - Cardiology suggest EP consult given risk of progression of 2nd degree AVB, type 1 to higher degree AVB - EP consult on 05/09/25: Consult in process, signed note pending - EP Consult on 05/09/25 Recommendations: -Suggest YONATHAN to assess for possible endocarditis or other pathology - No current pacemaker indications, however, further investigation warranted due to rapid progression since Sep 2024. - YONATHAN ordered, NPO midnight #Constipation - Last recorded bowel movement was on 05/07/25 PLAN: - Polyethylene glycol daily - Start Senna BID #ESRD on HD via Right TDC #Chronic Hypotension #Secondary 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 - iHD at [facility] through R. Tunneled HD catheter MWF - Last dialysis session Friday04/18/2025; missed Fri session because he presented to [facility] ED - anuric at baseline per patient - Serum P=9.7 - completed HD 04/21, now on MWF - PTH elevated 578, Ca 8.3 low PLAN: - nephrology consulted: > continue MWF HD schedule > continue calcitriol MWF - Continue Sensipar, renvela with meals - continue home Midodrine 20mg every 8 hours #Anemia of Chronic Disease/ESRD - Baseline hemoglobin 9-11 - iron studies 12/2024: iron 33, TIBC 156, Iron sat 21, ferritin 1327 - Hgb dropping iso bleeding wounds, as above. - received 1u pRBC 04/21, Hgb from 7.3 -> 7.7 post-transfusion - Hgb 6.9 on 04/22, s/p additional 2u pRBC with Hgb in ~8s PLAN: - Hgb goal >8, 8.4 (05/08/25). - chronic wound mgmt, as above - Iron levels of 36, TIBC- WNL, Ferritin high at 996 on 05/08/25, Replete Iron levels for ANABELLA, per Nephrology recommendation, however due to concerns for ongoing possible endocarditis, we will refrain from IV Iron use until further workup. #Code status - Full # Diet - renal # VTE PPx - warfarin # Dispo Planning - Pending clinical course, SW consulted for recent unemployment, c/f food insecurity #Adjustment disorder? #Low mood - Psychology consulted 05/10/25 - Music therapy - Art therapy - Healing services - Aroma therapy, spiritual services, and brief inpatient psychotherapy ordered per Psychology's recommendation, 05/11/25. Malnutrition Diagnosis supported by Registered Dietitian: Assessment: I have reviewed the result of the malnutrition assessment and plan and agree Plan: Medication and Non-Pharmacologic VTE Prophylaxis/Anticoagulants Anticoagulant AND Antiplatelet Medications (From admission, onward) Start Dose Route Frequency Last Action Ordered Stop 04/21/25 0900 aspirin 81 mg chewable tab(s) 81 mg PO DAILY Given, 05/10 0847 04/21/25 0316 -- 04/10/25 1015 activity - mobilize patient ([place]) 04/04/25 0900 graduated compression stockings ([place] VTE Prophylaxis: VTE prophylaxis appropriate Disposition: To be determined Plan of care discussed with Provider, RN, Patient Plan communicated to: Family Dae Miner MD PGY-1 [place], [phone] My Pager Attending Note I evaluated the patient and personally participated in the mendoza components. I agree with the resident's findings and plan as documented and have discussed the case and management of the patient's care with the resident. 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 Mild bleeding overnight in setting of elevated INR. Awaiting labs today. Awaiting ultrasounds of old fistulas to insure they are no longer patent as any high pressure in arms could be contributing to the chest wall varices. On IHD MWF. Underwent balloon angioplasty of R innominate vein stenosis and R TDC exchange on 04/29 with vascular surgery. Was bridged back to warfarin with heparin gtt. Awaiting labs today. Will hold warfarin given plan for YONATHAN. His warfarin is managed by outpatient parts delivery driver in [place]. 05/06 noted to have Mobitz 1 with very prolonged DE interval. Echo obtained and has limited views but is largely stable. Cardiology recommended EP eval. EP recommended YONATHAN, INR must be <4 for YONATHAN. Patient is agreeable to YONATHAN tomorrow if INR is within range. Sana Mir MD Associate Staff [facility] Medicine NURSING PROG Observed: 05/11/2025 1:15 AM Status: COMPLETED Source: [facility] HNO ID: [id number] Author: ARPIT HUNT, RN Service: Nursing Author Type: Registered Nurse Type: Nursing Progress Note Filed: 05/11/2025 02:25 Note Text: Patient with active bleeding from R side chest wound. Pressure applied with aquacell and surgicel placed within in woubd abd 2 ABD pads secured with tape to cover. EBL of 50mL. Bleeding has now stopped at this time. PROGRESS Observed: 05/10/2025 4:14 PM Status: COMPLETED Source: [facility]NO ID: [id number] Author: SANA MIR MD Service: Hospital Medicine Author Type: Physician Type: Progress Notes Filed: 05/11/2025 12:21 Note Text: DEPARTMENT OF HOSPITAL MEDICINE PROGRESS NOTE SERVICE DATE: 05/10/2025 SERVICE TIME: 6:16 AM Hospital Medicine/Primary Attending: Sana Mir MD NIGHT AND WEEKEND COVERAGE: [facility] COVERAGE: Nights: [phone], please page Team Jeffrey Haq; overnight/admitting pager [phone] Subjective Chief Complaint: Pain and chronic chest wound bleeding INTERVAL HPI: Mr. 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 Patient was hospitalized in September 2024 to October 2024 for pain and bleeding from the wounds. Patient was seen by dermatology back then for his skin ulcers. Biopsy performed and was most c/w reactive ischemic changes without features of Pyoderma Gangrenosum or Calciphylaxis. Now, plan for venoplasty with IR pending improvement in INR. Dermatology consulted and underwent steroid trial at wound edge. He was bridged to warfarin while here given his history of mechanical valve. Stay further complicated by new bradycardia, found to have Mobitz 1 second-degree AV block for which cardiology/EP was consulted. Overnight Events: No acute events overnight Vitals: MAP of 60, with BP of 94/49 on 05/10/25 AM. Labs stable, except INR: 5.2 on 05/10/25 (5.7 on 05/09/25). Patient has no acute concerns bedside. On CPAP overnight.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 replacement and additional risk factors for thromboembolic events (atrial fibrillation, previous thromboembolism, LV dysfunction, hypercoagulable conditions) or an older generation mechanical AVR (i.e., ball in-Cage) or any mechanical MVR should have a INR therapeutic range of 2.5 to 3.5 (target INR of 3). Alanatt GH, et al. Chest 2012, 141:7S-47S Kevin RA et al. JACC 2017, 70: 252-289 Performed By: #### [id number] # ### [facility] CLIA [id number] [address] [place] [address] [place] RENAL FUNC 2000 PNL SERPL Collected: 3:41 AM Status: F Source: [facility] Order Comment: Specimen Type : BLOOD SPECIMEN Ordering Facility: [facility] Address: [place] [address] TYPE CODE TESTS RESULT OUT OF RANGE REFERENCE UNITS LAB 1751-7(LOINC) Albumin SerPl-mCnc 3.5 Low 3.9-4.9 g/dL LAB 60369-0(LOINC) Calcium SerPl-mCnc 8.2 Low 8.5-10.2 mg/dL LAB 2777-1(LOINC) Phosphate SerPl-mCnc 3.5 2.7-4.8 mg/dL LAB 2345-7(LOINC) Glucose SerPl-mCnc 78 74-99 mg/dL Result Comment: The [place] Diabetes Association (ADA) provides guidance for cutoff values for fasting glucose and random glucose. The ADA defines fasting as no caloric intake for at least 8 hours. Fasting plasma glucose results between 100 to 125 mg/dL indicate increased risk for diabetes (prediabetes). Fasting plasma glucose results greater than or equal to 126 mg/dL meet the criteria for diagnosis of diabetes. In the absence of unequivocal hyperglycemia, results should be confirmed by repeat testing. In a patient with classic symptoms of hyperglycemia or hyperglycemic crisis, random plasma glucose results greater than or equal to 200 mg/dL meet the criteria for diagnosis of diabetes. Reference: Standards of Medical Care in Diabetes 2016, [place] Diabetes Association. Diabetes Care. 2016.39(Suppl 1). LAB 3094-0(LOINC) BUN SerPl-mCnc 16 9-24 mg/dL LAB 2160-0(LOINC) Creat SerPl-mCnc 5.54 High 0.73-1.22 mg/dL LAB 2951-2(LOINC) Sodium SerPl-sCnc 137 136-144 mmol/L LAB 2823-3(LOINC) Potassium SerPl-sCnc 5.0 3.7-5.1 mmol/L LAB 2075-0(LOINC) Chloride SerPl-sCnc 96 Low 98-107 mmol/L LAB 8-9(LOINC) CO2 SerPl-sCnc 26 22-30 mmol/L LAB 22299-3(LOINC) Anion Gap SerPl-sCnc 15 8-15 mmol/L LAB 97301-8(LOINC) eGFRcr SerPlBld CKD-EPI 2020 12 Low >=60 mL/min/1. 73m??? Result Comment: Estimated Gl omerular Filtration Rate (eGFR) is calculated using the 2020 CKD-EPI creatinine equation. This equation utilizes serum creatinine, sex, and age as parameters. The creatinine assay has traceable calibration to isotope dilution-mass spectrometry. Refer to KDIGO guidelines for clinical interpretation. In patients with unstable renal function, e.g. those with acute kidney injury, the eGFR may not accurately reflect actual GFR. Performed By: #### 04464-5 # ### [facility] CLIA [id number] [address] [place] [address] THERAPY NT Observed: 05/09/2025 4:18 PM Status: COMPLETED Source: [facility] HNO ID: [id number] Author: RENÉE MARTINES, PT, DPT Service: Physical Therapy Author Type: Physical Therapist Type: Therapy (PT/OT/Speech/Resp) Filed: 05/09/2025 16:21 Note Text: Physical Therapy Treatment Summary SERVICE DATE: 05/09/2025 SERVICE TIME: 1546 to 1618 ROOM: [place] [address] PT 6 Clicks Score: 17 DISCHARGE RECOMMENDATIONS: Home PT - may progress to safe discharge home with no skilled needs pending progress while in house and reassessment of safe ambulation with/without AD. 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 Has been sleeping in recliner 2/2 to pain. (+) driving SUBJECTIVE I've been doing these exercises. THERAPY DIAGNOSIS Reduced mobility-other, Muscle Weakness (generalized), General symptoms and signs-other TREATMENT INTERVENTIONS Therapeutic Exercise (24329) Timed Code Treatment (minutes): 23 Skilled Treatment Time (minutes): 32 TRAINING AND EDUCATION PROVIDED Anatomy and Impact on Deficits, Benefits of In-Hospital Mobility, Bed Mobility, Disease Specific Education, Exercise Program, Expected Functional Level, Patient Exercise/Therapy Program Support Needs, Role of Physical Therapy, Transfers, Treatment Protocol THERAPEUTIC SKILLS USED Activity Dosing, Cues for Sequencing/Proper Technique for Activity, Cuing Verbal, Cuing Visual, Facilitation of Joint Range of Motion, Teach-Back for Education FUNCTIONAL STATUS Bed Mobility Supine To Sit: Contact Guard Assistance (with HOB elevation) Scooting: Contact Guard Assistance Transfers Sit To Stand: Contact Guard Assistance Stand To Sit: Contact Guard Assistance Bed to Chair Contact Guard Assistance Bed To Chair Transfer Type: Stepping Bed To Chair Transfer Equipment: (IV pole) Gait Contact Guard Assistance Gait Device: IV Pole Gait Distance (feet): 70/90 with seated rest break Stairs GOALS Patient will demonstrate progress with functional mobility to allow safe discharge to home with available support and/or physical assistance. Rehab Potential: Good ACUTE CARE TREATMENT PLAN PT Frequency: Per Next Session Date Treatment Interventions: Education, Self Care / Home Management, Energy Conservation Training, Joint Mobility, Strengthening, Functional Mobility Training, Balance Training, Neuromuscular Re-education Plan for Next Visit: Gait Training, Stair Training SIGNATURE: Renée Martines, PT, DPT PATIENT NAME: Elia Weston DATE: May 09, 2025 TIME: 4:18 PM CASE MANAGEM Observed: 05/09/2025 2:42 PM Status: COMPLETED Source: [facility] HNO ID: [id number] Author: VICENTA TORRES LSW Service: Care Management Author Type: Ppa Teacher Type: Care Mgt Progress Note Filed: 05/09/2025 14:43 Note Text: CARE MANAGEMENT PROGRESS NOTE SERVICE DATE: 05/09/2025 SERVICE TIME: 2:42 PM LOS: 18 days DISCHARGE PLAN Discharge plan discussed with: primary team Anticipated Discharge Plan: Home with Home Care, referrals sent. Waiting on an accepting provider Anticipated Discharge Date: TBD DISCHARGE TRANSPORTATION Discharge Transportation: Pt reports he drove himself here and plans on driving home Discharge Barriers: medical stability CM following. SIGNATURE: CANDY Flores PATIENT NAME: Elia Weston DATE: May 09, 2025 TIME: 2:42 PM PT PNL PPP Collected: 05/09/2025 1:50 PM Status: F Source: [facility] Order Comment: Specimen Type : BLOOD SPECIMEN Ordering Facility: [facility] Address: [address] [place] [address] TYPE CODE TESTS RESULT OUT OF RANGE REFERENCE UNITS LAB 5902-2(LOINC) Prothrombin time 54.6 High 9.7-13.0 sec LAB 6301-6(LOINC) INR PPP 5.7 High 0.9-1.3 Result Comment: Sample check ed for clot. Result rechecked. Vitamin K Antagonist (VKA) Therapeutic Range: INR 2 to 3 (Target INR of 2.5) Note: For patients treated with VKA drugs, such as warfarin, the [place] [employer] Chest Physicians 2012 Guideline recommends a therapeutic INR range of 2 to 3 (target INR of 2.5). This recommendation includes high-risk patients with antiphospholipid syndrome with previous arterial or venous thromboembolism, current-generation mechanical or bioprosthetic aortic heart valve replacement. Note: Patients with mechanical aortic valve replacement and additional risk factors for thromboembolic events (atrial fibrillation, previous thromboembolism, LV dysfunction, hypercoagulable conditions) or an older generation mechanical AVR (i.e., ball in-Cage) or any mechanical MVR should have a INR therapeutic range of 2.5 to 3.5 (target INR of 3). Gukyaw GH, et al. Chest 2012, 141:7S-47S Kevin RA, et al. [facility] 2017, 70: 252-289 Performed By: #### 71893-3 # ### [facility] CLIA [id number] [address] [place] [address] [place] CONSULT PROG Observed: 05/09/2025 11:53 AM Status: COMPLETED Source: [facility] HNO ID: [id number] Author: KIMBERLY LYNN APRN.CNP Service: Wound Care Team Author Type: Nurse Practitioner Type: Consult Progress Note Filed: 05/09/2025 11:54 Note Text: Wound Care Consult Team Assessment Note: PATIENT NAME: Elia Weston WCCT attempted to see patient to follow up on wounds today at 0940, patient is out of room at dialysis at this time. Will attempt to see again at a future date. Kimberly Lynn APRN.FLORAL ASSOCIATE CONSULT Observed: 05/09/2025 11:34 AM Status: COMPLETED Source: [facility] HNO ID: [id number] Author: JIGAR HANNAH MD Service: Cardiovascular Medicine Author Type: Fellow Type: Consults Filed: 05/10/2025 16:14 Note Text: Attestation signed by Jigar Hannah MD at 05/10/2025 4:14 PM (Updated) [facility] STAFF PHYSICIAN NOTE OF PERSONAL INVOLVEMENT IN CARE IMPRESSION: History is well outlined above. Minimally symptomatic/asymptomatic from a heart rhythm standpoint and able to conduct 1:1 at times albeit with a prolonged DE. His TTE this admission has limited windows due to chest wall bandages from his bleeding wounds though I query some echodensities along the MV. While he doesn't have f/c/elevated wbc, given wounds and ESRD status, we need to rule out endocarditis as an etiology behind his progressive increase in DE interval compared to his EKG 's from earlier this year and as such, a YONATHAN is recommended. I have reviewed the documentation obtained and documented by the Fellow and I have personally performed a face to face assessment of the patient and have personally participated in the mendoza components of the visit which includes medical decision making.. I have discussed the case and management of the patient's care. (Inpatient): I personally spent 40 total minutes total time in the management and care of this patient. STAFF PHYSICIAN: Jigar Hannah MD DATE OF SERVICE: May 10, 2025 TIME OF SERVICE: 8:36 AM [facility] CARDI[facility]ULAR [facility]ICINE CONSULT NOTE (Template ID [id number]) Patient Name: Elia Weston : 1980 AGE: [age] year old PRIMARY SERVICE: Internal Medicine CONSULTING SERVICE: Cardiovascular Medicine: EP DATE OF ADMISSION: 04/20/2025 DATE OF CONSULT: 05/09/2025 REASON FOR CONSULT Bradycardia HISTORY OF PRESENT ILLNESS Elia Weston is a 45 year old male with ESRD on iHD, chronic SVC and brachiocephalic occlusive disease complicated by chest wall and abdominal varicies, Afib, Sev MS s/p mechanical mitral valve replacement w/ MAZE and RADHA closure (2020) who was admitted for chest wall bleeding and was found to have bradycardia. Patient initially came in for significant bleeding from the left and right chest wound. He underwent multiple blood transfusions and IR underwent repeat venoplasty direct blood flow away from chest veins. During this time, patient also had regular episodes of bradycardia. Patient was asymptomatic though did have softer blood pressures (systolic blood pressure normally in 120s dropped to mid 80s/90s). Patient was seen by cardiology on 05/07/2025. He was found to have a prolonged DE interval (greater than 40 ms) with evidence of type I second-degree block. Because of this, patient was referred to EP. Patient of note is chronically on midodrine 20 mg 3 times daily for chronic hypotension. After talking to patient, he states that he has been largely asymptomatic despite having episodes of bradycardia. 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 He otherwise denies any fevers, chills, or any other infectious-like symptoms. 12 Oct 2024: 2021: CONCLUSIONS: - Technically difficult exam due to bandages/chest tubes/wound and suboptimal positioning. - Exam indication: Abnormal ECG - There is left ventricular hypertrophy. Left ventricular systolic function is normal. EF = 60 ? 5% (visual est.) LV function appears grossly normal in limited parasternal views. - The right ventricle is normal in size. Right ventricular systolic function is normal. - Post mitral valve replacement. On-X prosthetic mitral valve (size #25). Prior gradients of 17/6 mmHg at 74 bpm. Unable to obtain MV gradients on today's exam. - Exam was compared with the prior echocardiographic exam performed on 07/09/2023. Limited exam with no significant changes. PAST MEDICAL HISTORY PAST MEDICAL HISTORY[1] PAST SURGICAL HISTORY Procedure Laterality Date ARTERIOVENOUS FISTULA Left 08/29/2010 CAPSULE ENDOSCOPY 07/01/2023 CARDIOVERSION-ELECTIVE N/A 12/03/2018 200 joules synchronized - successful COLONOSCOPY 07/01/2023 EGD 06/27/2023 HERNIA REPAIR HX PAST SURGICAL HISTORY OF 08/29/2010 dialysis fistula left arm PAST SURGICAL HISTORY OF Right 03/2019 Right leg femoral vein to superficial femoral artery loop graft mid thigh REPAIR CLEFT LIP RMVL LEANN CVC W/O SUBQ PORT/TOBACCO PREVENTION HEALTH EDUCATOR 01/17/2013 SHX CARDIAC RADIOFREQUENCY ABLATION 08/21/2021 s/p Maze procedure SHX MITRAL VALVE REPLACEMENT 08/21/2021 FAMILY HISTORY FAMILY HISTORY[2] SOCIAL HISTORY SOCIAL HISTORY[3] HOME MEDICATIONS aspirin 81 mg chewable tabletTake 81 mg by mouth.Disp: Rfl: cinacalcet (SENSIPAR) 60 mg tabletTake 1 tablet by mouth once daily.Disp: Rfl: calcitriol (ROCALTROL) 0.5 mcg capsuleTake 3 capsules by mouth every Friday, Friday, and Friday.Disp: Rfl: B Complex-Vitamin C-Folic Acid (JOHNSON-BRENDA) 0.8 mg tabTake 1 tablet by mouth once daily.Disp: Rfl: midodrine (PROAMATINE) 10 mg tabletTake 2 tablets by mouth every 8 hours.Disp: 180 tabletRfl: 11 melatonin 3 mg tabletTake 3 tablets by mouth daily at bedtime.Disp: Rfl: warfarin (COUMADIN) 2.5 mg tabletTake 1 tablet by mouth once daily.Disp: Rfl: Darbepoetin Osito In Polysorbat (ARANESP) 60 mcg/0.3 mL syrgInject 0.3 mL subcutaneously every Friday.Disp: Rfl: (Patient not taking: Reported on 01/25/2025) sevelamer carbonate (RENVELA) 800 mg tabletTake 3 tablets by mouth three times a day with meals.Disp: Rfl: (Patient not taking: Reported on 01/25/2025) polyethylene glycol 3350 (MIRALAX) 17 gram packetTake 1 Packet by mouth once daily. Dissolve dose in 4 - 8 ounces of liquid and take as directed.Disp: 60 EachRfl: 0 oxyCODONE IR (ROXICODONE) 10 mg tabTake 10 mg by mouth every 8 hours as needed for pain.Disp: Rfl: INPATIENT MEDICATIONS Current Facility-Administered Medications Medication Dose Route Frequency NaCl 0.9% iv flush bag 20 mL INTRAVENOUS PRN acetaminophen 650 mg tab(s) (TYLENOL) 650 mg ORAL q 6 H PRN aspirin 81 mg chewable tab(s) 81 mg ORAL DAILY midodrine 20 mg tab(s) (PROAMATINE) 20 mg ORAL q 8 H cinacalcet 60 mg tab(s) (SENSIPAR) 60 mg ORAL DAILY sevelamer carbonate 800 mg tab(s) (RENVELA) 800 mg ORAL TID w MEALS oxyCODONE IR 10 mg tab(s) (ROXICODONE) 10 mg ORAL q 6 H PRN polyethylene glycol 3350 17 g packet 17 g ORAL DAILY calcitriol 1.5 mcg cap(s) (ROCALTROL) 1.5 mcg ORAL MO-WE- LORazepam 0.25 mg tab(s) (ATIVAN) 0.25 mg ORAL DAILY PRN fentaNYL 50 mcg/mL 25 mcg injection (SUBLIMAZE) 25 mcg INTRAVENOUS DAILY PRN warfarin order for discharge OTHER PRN ascorbic acid 500 mg chewable tab(s) 500 mg ORAL DAILY pyridoxine (vitamin B6) 50 mg tab(s) (VITAMIN B6) 50 mg ORAL DAILY vitamin A 10,000 Units cap(s) (AQUASOL A) 10,000 Units ORAL DAILY sodium chloride 0.9 % (flush) 2-10 mL (BD POSIFLUSH) 2-10 mL INTRAVENOUS DIRECTED PRN And perflutren lipid microspheres 1.1 mg/mL 1.3 mL injection (DEFINITY) 1.3 mL INTRAVENOUS DIRECTED PRN senna 8.6 mg tab(s) (SENOKOT) 8.6 mg ORAL/FEEDING TUBE BID fentaNYL 50 mcg/mL 50 mcg injection (SUBLIMAZE) 50 mcg INTRAVENOUS DAILY PRN ALLERGIES ALLERGIES[4] COMPLETE REVIEW OF SYSTEMS All systems reviewed and are negative except for stated in the HPI. PHYSICAL EXAM BP 124/81 Pulse 68 Temp 36.8 ?C (98.3 ?F) (Oral) Resp 17 Wt 115.9 kg (255 lb 8.2 oz) SpO2 100% BMI 36.99 kg/m? GEN: Well appearing, well-nourished, NAD. HEENT: nontraumatic, EOMI, normal conjunctivae CV: sinus, no edema LUNGS: normal resp effort, equal chest rise, no audible wheeze ABD: Soft nontender SKIN: No skin rashes or abnormal lesions on exposed surfaces MSK: No trauma NEURO:AANDOx3, CN grossly intact, No focal deficits. PSYCH: Normal cognition, normal memory, mood, and affect. DATA: Labs: Reviewed Micro:Reviewed Imaging: Reviewed IMPRESSION AND RECOMMENDATIONS: Elia Weston is a 45 year old male with ESRD on iHD, chronic SVC and brachiocephalic occlusive disease complicated by chest wall and abdominal varicies, Afib, Sev MS s/p mechanical mitral valve replacement w/ MAZE and RADHA closure (2020) who was admitted for chest wall bleeding and was found to have bradycardia. Mr. Weston at this time has no clear indication for pacemaker. He does not have any clear symptoms that suggest that his Mobitz type I has affected him hemodynamically or symptomatically. However, that being said, patient has a significantly prolonged DE interval that has significantly worsened since September 2024. Furthermore, his EKG in September did not show any evidence of Mobitz type I or heart block. Looking at his TTE, due to patient's body habitus as well as multiple chest wounds, we are unable to get good images to look at his prior valve. The rapid progression of his heart block is concerning for possible infection or endocarditis. He is at high risk in the setting of prior mechanical mitral valve, multiple skin wounds, multiple prior admissions with bleeding, and ESRD which put him at high risk for bloodstream infections. Thus, in order to get a better sense as to whether or not he may have endocarditis, we would recommend obtaining YONATHAN to assess his valves. Thankfully, at this time patient's white count, fever curve, symptoms are not suggestive of infection. [ ] Recommend obtaining YONATHAN to better assess for endocarditis or other pathology contributing to his heart block [ ] No current indication for pacemaker but warrants further investigation and monitoring iso of rapid prolongation of DE and AV block Family was called and updated as patients request. This patient was seen and will be discussed with the Cardiovascular Medicine Consult staff, Dr. Hannah. No recommendations are final until the staff attestation is complete. Solis Castillo MD [1] Past Medical History: No date: Anemia of chronic disorder No date: Anuria 12/02/2018: Atrial fibrillation ([facility]) Comment: on Coumadin and Amiodarone No date: BMI 40.0-44.9, adult ([facility]) 2006: ESRD (end stage renal disease) on dialysis ([facility]) Comment: ESRD from HTN Dialysis M,W,[facility] [phone] 1998: Essential hypertension, benign Comment: EKG 09/30 NL. No date: Hearing loss of both ears No date: History of mitral valve stenosis No date: Hx of bacterial endocarditis No date: 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 due to end stage renal disease on dialysis ([facility]) 2006: Kidney disease Comment: ESRD due to HTN; on IHD since 2005 No date: 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 and scoliosis Comment: h/o this 3 y. Dx by xray. No date: Mechanical complication of arteriovenous fistula surgically created ([facility]) No date: Mechanical complication of dialysis catheter ([facility]) No date: Mitral valve disease No date: Morbid obesity ([facility]) 10/08/2018: MS (mitral stenosis) Comment: Transesophageal US No date: YEIMY on CPAP No date: Paroxysmal atrial fibrillation ([facility]) No date: PE (pulmonary thromboembolism) ([facility]) No date: Pelvic mass No date: Pseudoaneurysm of AV hemodialysis fistula ([facility]) No date: Wound of right side of back Comment: from friction/rubbing of jacket, goes to wound care center in [place] [2] Review of patient's family history indicates: Adopted: Yes Problem: None Relation: Mother Age of Onset: (Not Specified) Problem: None Relation: Father Age of Onset: (Not Specified) Problem: Aneurysm Relation: No Family History Age of Onset: (Not Specified) [3] Social History Tobacco Use Smoking status: Never Smokeless tobacco: Never Vaping Use Vaping status: Never Used Substance Use Topics Alcohol use: No Drug use: No [4] Allergies Allergen Reactions Gabapentin Unknown, Other: See Comments Trazodone Other: See Comments Heidi CASE MANAGEM Observed: 05/09/2025 10:42 AM Status: COMPLETED Source: [facility] ID: [id number] Author: VICENTA TORRES LSW Service: Care Management Author Type: Ppa Teacher Type: Care Mgt Progress Note Filed: 05/09/2025 10:43 Note Text: CARE MANAGEMENT PROGRESS NOTE SERVICE DATE: 05/09/2025 SERVICE TIME: 10:42 AM LOS: 18 days DISCHARGE PLAN Discharge plan discussed with: n/a Anticipated Discharge Plan: Home with self care Anticipated Discharge Date: TBD DISCHARGE TRANSPORTATION Patient has been informed that discharge time is 12pm on day of discharge. Discharge Transportation: Family to transport at dc Discharge Barriers: Waiting on medical clearance. EP consulted. No skilled needs identified. CM following. SIGNATURE: CANDY Flores PATIENT NAME: Elia Weston DATE: May 09, 2025 TIME: 10:42 AM PROGRESS Observed: 05/09/2025 10:32 AM Status: COMPLETED Source: [facility] ID: [id number] Author: SANA MIR MD Service: Hospital Medicine Author Type: Physician Type: Progress Notes Filed: 05/09/2025 15:13 Note Text: DEPARTMENT OF HOSPITAL MEDICINE PROGRESS NOTE SERVICE DATE: 05/09/2025 SERVICE TIME: 3:10 PM Hospital Medicine/Primary Attending: Sana Mir MD NIGHT AND WEEKEND COVERAGE: [facility] COVERAGE: Nights: [phone], please page Team Jeffrey Haq; overnight/admitting pager [phone] Subjective Chief Complaint: Pain and chronic chest wound bleeding INTERVAL HPI: Mr. 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 Patient was hospitalized in September 2024 to October 2024 for pain and bleeding from the wounds. Patient was seen by dermatology back then for his skin ulcers. Biopsy performed and was most c/w reactive ischemic changes without features of Pyoderma Gangrenosum or Calciphylaxis. Now, plan for venoplasty with IR pending improvement in INR. Dermatology consulted and underwent steroid trial at wound edge. He was bridged to warfarin while here given his history of mechanical valve. Stay further complicated by new bradycardia, found to have Mobitz 1 second-degree AV block for which cardiology/EP was consulted. Overnight Events: No acute events overnight VSS Labs stable Patient has no acute concerns bedside. On CPAP overnight. Current Facility-Administered Medications Medication Dose Route Frequency NaCl 0.9% iv flush bag 20 mL INTRAVENOUS PRN acetaminophen 650 mg tab(s) (TYLENOL) 650 mg ORAL q 6 H PRN aspirin 81 mg chewable tab(s) 81 mg ORAL DAILY midodrine 20 mg tab(s) (PROAMATINE) 20 mg ORAL q 8 H cinacalcet 60 mg tab(s) (SENSIPAR) 60 mg ORAL DAILY sevelamer carbonate 800 mg tab(s) (RENVELA) 800 mg ORAL TID w MEALS oxyCODONE IR 10 mg tab(s) (ROXICODONE) 10 mg ORAL q 6 H PRN polyethylene glycol 3350 17 g packet 17 g ORAL DAILY calcitriol 1.5 mcg cap(s) (ROCALTROL) 1.5 mcg ORAL - LORazepam 0.25 mg tab(s) (ATIVAN) 0.25 mg ORAL DAILY PRN fentaNYL 50 mcg/mL 25 mcg injection (SUBLIMAZE) 25 mcg INTRAVENOUS DAILY PRN warfarin order for discharge OTHER PRN ascorbic acid 500 mg chewable tab(s) 500 mg ORAL DAILY pyridoxine (vitamin B6) 50 mg tab(s) (VITAMIN B6) 50 mg ORAL DAILY vitamin A 10,000 Units cap(s) (AQUASOL A) 10,000 Units ORAL DAILY sodium chloride 0.9 % (flush) 2-10 mL (BD POSIFLUSH) 2-10 mL INTRAVENOUS DIRECTED PRN And perflutren lipid microspheres 1.1 mg/mL 1.3 mL injection (DEFINITY) 1.3 mL INTRAVENOUS DIRECTED PRN senna 8.6 mg tab(s) (SENOKOT) 8.6 mg ORAL/FEEDING TUBE BID fentaNYL 50 mcg/mL 50 mcg injection (SUBLIMAZE) 50 mcg INTRAVENOUS DAILY PRN Objective PHYSICAL EXAM: BP 124/81 Pulse 68 Temp (Src) 98.3 (Oral) Resp 17 Wt 255 lb 8.2 oz (115.9kg) SpO2 100% O2 Therapy: Continuous Positive Airway Pressure Physical Exam Performed GENERAL: Alert, no distress, cooperative SKIN: Right and Left anterior and posterior chest wounds: chronic, bleeding, no purulent discharge. LUNGS: Lungs clear to auscultation, Good diaphragmatic excursion CARDIAC: Normal S1 and S2; no rubs, murmurs, or gallops ABDOMEN: Abdomen soft, non-tender, BS normal, No masses or organomegaly Lines, Drains, and Airways Line Duration Peripheral 04/26/25 2100 [facility] Right Forearm 20 Gauge 12 days Dialysis / Apheresis Double Lumen 04/29/25 1005 [facility] Tunneled Right Internal Jugular 10 days DATA: Diagnostic tests reviewed for today's visit: Most recent labs Most recent imaging Most recent EKG Labs: Latest Reference Range AND Units 05/07/25 05:38 05/08/25 03:52 Sodium 136 - 144 mmol/L 136 137 Potassium 3.7 - 5.1 mmol/L 4.4 4.4 Chloride 98 - 107 mmol/L 94 (L) 94 (L) CO2 22 - 30 mmol/L 26 28 BUN 9 - 24 mg/dL 17 24 Creatinine 0.73 - 1.22 mg/dL 4.88 (H) 6.76 (H) Glucose 74 - 99 mg/dL 83 99 Calcium 8.5 - 10.2 mg/dL 8.2 (L) 7.9 (L) Phosphorus 2.7 - 4.8 mg/dL 3.4 3.9 Albumin 3.9 - 4.9 g/dL 3.6 (L) 3.7 (L) Anion Gap 8 - 15 mmol/L 16 (H) 15 eGFR >=60 mL/min/1.73m? 14 (L) 10 (L) WBC 3.70 - 11.00 k/uL 6.03 6.41 RBC 4.20 - 6.00 m/uL 3.12 (L) 2.99 (L) Hemoglobin 13.0 - 17.0 g/dL 8.7 (L) 8.4 (L) Hematocrit 39.0 - 51.0 % 29.4 (L) 27.7 (L) Platelet Count 150 - 400 k/uL 201 194 MCV 80.0 - 100.0 fL 94.2 92.6 MCH 26.0 - 34.0 pg 27.9 28.1 MCHC 30.5 - 36.0 g/dL 29.6 (L) 30.3 (L) MPV 9.0 - 12.7 fL 12.4 12.1 RDW-CV 11.5 - 15.0 % 20.5 (H) 20.2 (H) Absolute nRBC <0.01 k/uL <0.01 <0.01 PT Sec 9.7 - 13.0 sec 26.6 (H) 33.1 (H) PT INR 0.9 - 1.3 2.6 (H) 3.3 (H) APTT 23.0 - 32.4 sec 60.1 (H) (L): Data is abnormally low (H): Data is abnormally high Imaging: Transthoracic echocardiogram 05/06/25: EF: 60%, left ventricular hypertrophy, right ventricle normal, trace tricuspid valve regurgitation, trace pulmonic valve regurgitation, no pericardial effusion, aorta normal in size CXR 04/21/25: TDC with tip in RA. Increase of perihilar and basilar opacities with volume loss, suggesting atelectasis, possible underlying edema/inflammation. Blunting of L CP angle, which may represent tiny effusion or pleural thickening. CT A/P 04/22/25: No abdominal or pelvic subcutaneous fluid collection of gas. Redemonstrated diffuse subcutaneous extensive abdominal wall collaterals, similar to prior CTA 10/17/2024. CT chest 04/22/25: extensive chest wall collaterals, few areas of skin ulceration, no areas of drainable fluid collection. Findings consistent with central venous stenoses. Few patchy groundglass opacities, may be related to mild pulm edema Assessment/Plan Problem List Assessment AND Plan Bleeding from open wound of chest wall, right, initial encounter Secondary hyperparathyroidism, renal (HCC) ESRD on hemodialysis (HCC) History of non-ST elevation myocardial infarction (NSTEMI) Vitamin D deficiency S/P MVR (mitral valve replacement) Supratherapeutic INR Atrial fibrillation (HCC) Acute on chronic blood loss anemia Adjustment disorder with depressed mood Acquired hypothyroidism Acquired stenosis of superior vena cava Venous collateral circulation Status post Maze operation for atrial fibrillation Ulcers, venous (HCC) Wounds, multiple Anemia due to multiple mechanisms Hemorrhage from open wound of left chest wall Open chest wound, right, sequela Open chest wound, left, sequela Back wound, unspecified laterality, sequela Open wound of abdomen Open wound of right thigh Bleeding from wound Difficult intravenous access Hypervolemia Skin ulcers (HCC) Vitamin C deficiency Vitamin A deficiency Vitamin B6 deficiency Second degree AV block, Mobitz type I HOSPITAL COURSE: Elia Weston is a 45 year old male with extensive PMH, significant for ESRD on HD (MWF) last session 04/18 (skipped Friday since he came to ED), CAD s/p CABG, severe MS s/p MVR on Warfarin (goal INR of 2.5-3.5), pAfib s/p maze procedure and RADHA clip and chronic chest/abdominal/back wounds (3 years) likely secondary to ischemia in context of SVC syndrome and multiple thrombosis, who presented to the ED with 1-day of left chronic chest wound bleeding. Admitted for management of bleeding, and on transfer to [facility], patient began to have significant bleeding from R chest wound. Continuous pressure was applied and bleeding stopped. Now s/p FFP and RBC transfusions as appropriate. Initially started on Vanc/Zosyn given elevated ESR/CRP and WBC, no infectious concern on further imaging with improved lactate WBC, so ABx were stopped. Dermatology and wound care consulted. IR consulted, planning for venoplasty given INR reversal. 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 Hx of hemorrhagic shock from bleeding abdominal wounds - presenting with acute worsening of pain and bleeding from wounds. Denies purulent discharge from wounds. - Leukocytosis + Elevated CRP 22.1 and ESR 133 + Elevated lactate on presentation; concerned for infected wounds/soft tissue infection. Started on IV vanc/zosyn, later d/janie due to low infectious concern (04/21-04/25) - On admission, acute rise in lactate in light of acute significant bleeding and drop in HGB (8.6 from 9.5 in ED) likely secondary to hypovolemia, also missed dialysis - CT venogram on 10/19/24 with b/l brachiocephalic stenosis w b/l subclavian vein occlusion, extensive venous collaterals - 10/22/24: Venoplasty completed by IR, removed L femoral TDC, exchanged R TDC - blood cultures 7/23/25 with NG5D x2 - AMET for hypotension 80/50, s/p 500 cc LR bolus, scheduled midodrine with improved repeat 102/63 - lactate 2.4 from 1.7, improved from 3.2 at admission. Completed 5d course of IV vanc/zosyn (04/21-04/25) - CT chest and CT A/P 04/22/25 with no drainable fluid collections, extensive chest collaterals - nutritional workup: B12 elevated, folate wnl, iron low 26, TIBC low 137, trans sat wnl, low vit D 22.9, zinc 69 wnl, low vit A 0.10 - 04/29/25: Venoplasty: completed by IR. 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 Right upper chest tunneled dialysis catheter was exchanged over a wire for a new on; ready for use PLAN: - IR consulted: > venoplasty 04/29/2025 - no complications - Derm consulted: > ongoing nutritional workup > discontinued clobetasol 0.05% ointment BID per derm, lesion over R scapula, try to simulate tx of PG and assess response > [facility] Derm f/u outpatient - continue vitamin D supplement 5000 unit(s), ascorbic acid 500mg/day, vit B6 50mg/day, vit A 10,000 units/day - wound care team consulted, appreciate care - pain control: tylenol 650 mg q6h prn and oxycodone 10 mg po q6h PRN. > IV fent for dressing changes as needed - plastic surgery consulted: > no indication for surgical intervention at this time - Cautious fluid resuscitation in light of acute bleeding and ESRD anuric on HD - Chest wound dressings to be changed every day #Supratherapeutic INR #CAD s/p CABG #Severe MS s/p mechanical MVR on coumadin #Paroxysmal Afib s/p multiple DCCV s/p Maze procedure + RADHA clip (07/2021) - atrial fibrillation and severe mitral stenosis s/p mechanical mitral valve replacement with On-x valve (INR goal 2.5-3.5), Maze procedure and RADHA clip on 08/21/2021. - Goal INR 2.5- 3.5; on warfarin 2.5 mg daily although patient not sure of dose, has been changed recently; last dose of warfarin Thursday 04/19 - INR elevated to 5.1 on admission, improved to 3.9 s/p 2u FFP 04/21 - possible etiology of supratherapeutic INR: warfarin dose (given patient not sure of home dose) vs malnutrition vs liver disease (less likely given AST/ALT wnl) - INR elevated again to 5.3, patient received po vitamin K 5 mg 04/25. Improved to 1.7 - INR 3.3 on 05/08 PLAN: - given subtherapeutic INR and no intervention by plastic surgery planned, continue bridging to warfarin > goal INR 2.5 - 3.5, given mechanical valve. - Heparin discontinued 05/07 - Daily INR - Follows with Dr. Moreno (cardiology in [place]) for mgmt of Coumadin, will need follow-up outpatient - INR on 05/09/25 pending. # Second-degree AV Block, Mobitz Type I - Patient having multiple episodes of bradycardia in the hospital with low blood pressures - Magnesium level 2.2 (05/05/25) - EKG (05/05/25) shows Second degree AV block, mobitz type 1 - EKG (05/06/25): shows sinus rhythm with 2nd degree AV shantell, mobitz type 1 - Transthoracic echocardiogram 05/06/25: EF: 60%, left ventricular hypertrophy, right ventricle normal, trace tricuspid valve regurgitation, trace pulmonic valve regurgitation, no pericardial effusion, aorta normal in size PLAN: - Cardiology team consulted, appreciate recs - Echocardiogram completed, results as above - Cardiology suggest EP consult given risk of progression of 2nd degree AVB, type 1 to higher degree AVB - EP consult on 05/09/25: Consult in process, signed note pending #Constipation - Last recorded bowel movement was on 05/07/25 PLAN: - Polyethylene glycol daily - Start Senna BID #ESRD on HD via Right TDC #Chronic Hypotension #Secondary 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 - iHD at [facility] through R. Tunneled HD catheter MWF - Last dialysis session Friday04/18/2025; missed Fri session because he presented to [facility] ED - anuric at baseline per patient - Serum P=9.7 - completed HD 04/21, now on MWF - PTH elevated 578, Ca 8.3 low PLAN: - nephrology consulted: > continue MWF HD schedule > continue calcitriol MWF - Continue Sensipar, renvela with meals - continue home Midodrine 20mg every 8 hours #Anemia of Chronic Disease/ESRD - Baseline hemoglobin 9-11 - iron studies 12/2024: iron 33, TIBC 156, Iron sat 21, ferritin 1327 - Hgb dropping iso bleeding wounds, as above. - received 1u pRBC 04/21, Hgb from 7.3 -> 7.7 post-transfusion - Hgb 6.9 on 04/22, s/p additional 2u pRBC with Hgb in ~8s PLAN: - Hgb goal >8, 8.4 this am - chronic wound mgmt, as above #Code status - Full # Diet - renal # VTE PPx - warfarin # Dispo Planning - Pending clinical course, SW consulted for recent unemployment, c/f food insecurity Malnutrition Diagnosis supported by Registered Dietitian: Assessment: I have reviewed the result of the malnutrition assessment and plan and agree Plan: Medication and Non-Pharmacologic VTE Prophylaxis/Anticoagulants Anticoagulant AND Antiplatelet Medications (From admission, onward) Start Dose Route Frequency Last Action Ordered Stop 04/21/25 0900 aspirin 81 mg chewable tab(s) 81 mg PO DAILY Given, 05/08 1014 04/21/25 0316 -- 04/10/25 1015 activity - mobilize [place] ([place]) 04/04/25 0900 graduated compression stockings ([place] VTE Prophylaxis: VTE prophylaxis appropriate Disposition: To be determined Plan of care discussed with Provider, RN, Patient Plan communicated to: Family Dae Miner MD PGY-1 [place], [phone] My Pager Attending Note I evaluated the patient and personally participated in the mendoza components. I agree with the resident's findings and plan as documented and have discussed the case and management of the patient's care with the resident. 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 No further bleeding from chest wall wounds. Hgb stable. This admission was seen by derm and plastic surgery. No further intervention at this time. Pain control. Needs daily dressing changes. On IHD MWF. Underwent balloon angioplasty of R innominate vein stenosis and R TDC exchange on 04/29 with vascular surgery. Had dialysis today. Has been bridged back to warfarin with heparin gtt. INR rogelio to 5.7 today despite lower doses of warfarin the past 2 days. Holding warfarin for now. Managed by outpatient parts delivery driver in [place]. 05/06 noted to have Mobitz 1 with very prolonged DE interval. Echo obtained and has limited views but is largely stable. Cardiology is recommending EP evaluation. EP to see today. DC pending EP recs and finding home health care. Sana Mir MD [facility] Medicine CONSULT PROG Observed: 05/09/2025 10:14 AM Status: COMPLETED Source: [facility] ID: [id number] Author: LUCILLE GOMEZ APRN.FLORAL ASSOCIATE Service: Nephrology Author Type: Nurse Practitioner Type: Consult Progress Note Filed: 05/09/2025 10:22 Note Text: CONSULT PROGRESS NOTE NEPHROLOGY Q6 SERVICE SERVICE DATE: 05/09/2025 SERVICE TIME: 10:14 AM SUBJECTIVE INTERVAL HISTORY: - ESRD Patient seen on dialysis, single evaluation. Orders confirmed and documented per LEONEL. Resting in bed on phone. Off heparin INR yesterday 3.3. No UOP. Chronically on Supplemental O2. -Patient tolerating dialysis well -Denies any chest pain, shortness of breath or dizziness -Denies any nausea, vomiting, muscle aches or headaches MEDICATIONS: Current Facility-Administered Medications Medication Dose Route Frequency NaCl 0.9% iv flush bag 20 mL INTRAVENOUS PRN acetaminophen 650 mg tab(s) (TYLENOL) 650 mg ORAL q 6 H PRN aspirin 81 mg chewable tab(s) 81 mg ORAL DAILY midodrine 20 mg tab(s) (PROAMATINE) 20 mg ORAL q 8 H cinacalcet 60 mg tab(s) (SENSIPAR) 60 mg ORAL DAILY sevelamer carbonate 800 mg tab(s) (RENVELA) 800 mg ORAL TID w MEALS oxyCODONE IR 10 mg tab(s) (ROXICODONE) 10 mg ORAL q 6 H PRN polyethylene glycol 3350 17 g packet 17 g ORAL DAILY calcitriol 1.5 mcg cap(s) (ROCALTROL) 1.5 mcg ORAL -WE- LORazepam 0.25 mg tab(s) (ATIVAN) 0.25 mg ORAL DAILY PRN fentaNYL 50 mcg/mL 25 mcg injection (SUBLIMAZE) 25 mcg INTRAVENOUS DAILY PRN warfarin order for discharge OTHER PRN ascorbic acid 500 mg chewable tab(s) 500 mg ORAL DAILY pyridoxine (vitamin B6) 50 mg tab(s) (VITAMIN B6) 50 mg ORAL DAILY vitamin A 10,000 Units cap(s) (AQUASOL A) 10,000 Units ORAL DAILY sodium chloride 0.9 % (flush) 2-10 mL (BD POSIFLUSH) 2-10 mL INTRAVENOUS DIRECTED PRN And perflutren lipid microspheres 1.1 mg/mL 1.3 mL injection (DEFINITY) 1.3 mL INTRAVENOUS DIRECTED PRN senna 8.6 mg tab(s) (SENOKOT) 8.6 mg ORAL/FEEDING TUBE BID fentaNYL 50 mcg/mL 50 mcg injection (SUBLIMAZE) 50 mcg INTRAVENOUS DAILY PRN OBJECTIVE PHYSICAL EXAM: BP 124/81 Pulse 68 Temp 36.8 ?C (98.3 ?F) (Oral) Resp 17 Wt 115.9 kg (255 lb 8.2 oz) SpO2 100% BMI 36.99 kg/m? Intake/Output Summary (Last 24 hours) at 05/09/2025 1014 Last data filed at 05/08/2025 1418 Gross per 24 hour Intake -- Output 0 ml Net 0 ml GENERAL: Awake, alert, in no acute distress SKIN: Warm and dry HEENT: Normocephalic, Atraumatic LUNGS: Normal respiratory effort. 2L O2 CARDIAC: RRR ABDOMEN: Soft, non-tender, non-distended. EXTREMITIES: +peripheral edema NEURO: AOx3, normal speech Vascular Access: Hemodialysis catheter location: Right Tunneled internal jugular. Exit site demonstrates: normal findings DATA: Diagnostic tests reviewed for today's visit: Recent Labs 05/08/25 0352 05/07/25 0538 05/06/25 0856 05/05/25 0551 05/04/25 0406 NA 137 136 138 137 136 K 4.4 4.4 4.7 4.3 5.0 CHLOR 94* 94* 96* 94* 93* CO2 28 26 26 28 24 BUN 24 17 32* 21 34* CREAT 6.76* 4.88* 7.53* 5.29* 7.02* GLUC 99 83 90 93 109* ANION 15 16* 16* 15 19* CA 7.9* 8.2* 7.7* 8.1* 7.7* P 3.9 3.4 5.4* 4.1 4.6 MG -- -- -- 2.2 -- Recent Labs 05/08/25 0352 05/07/25 0538 05/06/25 0856 WBC 6.41 6.03 6.39 HB 8.4* 8.7* 7.9* HCT 27.7* 29.4* 26.0* PLT 194 201 194 ASSESSMENT: Mr. 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 Labs on presentation significant for elevated lactic acid, leukocytosis, anemia and supratherapeutic INR. Of note, his previous admission 10/12/2024-11/02/2024 was also for pain and bleeding of the wounds/skin ulcers. Biopsy was consistent with reactive ischemic changes at the time without features of Polyderma Gangrenosum or calciphylaxis. Patient was admitted under general internal medicine team for further management. Nephrology consulted for ESR management. 1.ESRD History -Etiology: HTN Renal Biopsy 2006 renal failure, of undetermined etiology. All of the glomeruli examined are obliterated by total global sclerosis -Date of first HD: 2005 -Current HD unit: [facility] -Configuration Release Manager: Dr Melendez -Schedule: Fri-Fri-Fri -Time: 4.5 hrs -EDW: 114 kg -Date of last outpatient dialysis: 04/18/25 -Access: R IJ TDC 04/29/2025 s/p S/p 04/29 venogram , Right innominate vein stenosis was dilated to 8 mm using an angioplasty balloon per IR 2.Electrolytes/acid-base: -Potassium controlled with DRYWALL SANDER -Sodium stable -acid/base stable 3.Hypertension/Volume Status: -BP soft/stable. On midodrine -EDW 114 kg, pre-weigh today 118.7 kg? Bed weight with UF goal 2-3 L as tolerated -Hypervolemic on exam 4.Anemia of CKD: -hgb below ESRD goal -S/P RBC transfusions 04/22 -Iron Stores 04/04: Ferritin 653 Iron 25 TIBC 180 TSAT 14 -Avoid IV iron in the setting of infection -ANABELLA: resume aranesp while inpt, -OPT: Mircera 225 mcg Q2 weeks last given unknown 5.Secondary renal hyperparathyroidism: -Phos stable on binder -Calcium corrects stable on sensipar -PTH 578 on calcitriol PLAN: -IHD today x 4.5 hours, 3 K bath with UF goal 2-3 L -Next dialysis planned for Friday on MWF -Continue renvela and sensipar -Continue midodrine -Continue calcitriol -if iron stores not replaced, replace then recommending ANABELLA 60mcg weekly Standard ESRD recommendations and precautions: - Strict IANDOs and Daily weight - Consider a RENAL Diet for HD patients - Fluid restriction < 1 L - Start Nephrocap or other renal multivitamin to replace water-soluble vitamins lost during dialysis - Avoid Lovenox, Demerol, Morphine, K-containing IVF, Mg- or Phos- containing enemas - Dose meds GFR 10 ml/min Outpatient dialysis disposition plan: contact [phone] and ask to speak with the director of front office as needed for assistance with post-discharge arrangements. Please DO NOT schedule patient for a nephrology follow up appointment. Kidney care will be provided by the primary data warehousing engineer at their dialysis unit upon hospital discharge. SIGNATURE: Lucille Gomze APRN.CNP PATIENT NAME: Elia Weston DATE: May 09, 2025 TIME: 10:14 AM PAGER: [phone] FOR AFTER HOUR CONCERNS BETWEEN 5PM - 7AM CONTACT ON-CALL NEPHROLOGY FELLOW [phone] Disclosures: Parts of the current progress note may have been copied from a previous note. PLAN OF CARE Observed: 05/09/2025 9:40 AM Status: COMPLETED Source: [facility] ID: [id number] Author: ARMIDA JOSEPH APRN.FLORAL ASSOCIATE Service: Cardiovascular Medicine Author Type: Nurse Practitioner Type: Plan of Care Filed: 05/09/2025 16:12 Note Text: [facility] CONSULT PROGRESS NOTE (Template ID [id number]) CONSULTING SERVICE: Cardiology: Consult Team PRIMARY SERVICE: [facility] DAY: #18 SUBJECTIVE INTERVAL HISTORY: INR therapeutic OBJECTIVE MEDICATIONS: Current Facility-Administered Medications Medication Dose Route Frequency NaCl 0.9% iv flush bag 20 mL INTRAVENOUS PRN acetaminophen 650 mg tab(s) (TYLENOL) 650 mg ORAL q 6 H PRN aspirin 81 mg chewable tab(s) 81 mg ORAL DAILY midodrine 20 mg tab(s) (PROAMATINE) 20 mg ORAL q 8 H cinacalcet 60 mg tab(s) (SENSIPAR) 60 mg ORAL DAILY sevelamer carbonate 800 mg tab(s) (RENVELA) 800 mg ORAL TID w MEALS oxyCODONE IR 10 mg tab(s) (ROXICODONE) 10 mg ORAL q 6 H PRN polyethylene glycol 3350 17 g packet 17 g ORAL DAILY calcitriol 1.5 mcg cap(s) (ROCALTROL) 1.5 mcg ORAL - LORazepam 0.25 mg tab(s) (ATIVAN) 0.25 mg ORAL DAILY PRN fentaNYL 50 mcg/mL 25 mcg injection (SUBLIMAZE) 25 mcg INTRAVENOUS DAILY PRN warfarin order for discharge OTHER PRN ascorbic acid 500 mg chewable tab(s) 500 mg ORAL DAILY pyridoxine (vitamin B6) 50 mg tab(s) (VITAMIN B6) 50 mg ORAL DAILY vitamin A 10,000 Units cap(s) (AQUASOL A) 10,000 Units ORAL DAILY sodium chloride 0.9 % (flush) 2-10 mL (BD POSIFLUSH) 2-10 mL INTRAVENOUS DIRECTED PRN And perflutren lipid microspheres 1.1 mg/mL 1.3 mL injection (DEFINITY) 1.3 mL INTRAVENOUS DIRECTED PRN senna 8.6 mg tab(s) (SENOKOT) 8.6 mg ORAL/FEEDING TUBE BID fentaNYL 50 mcg/mL 50 mcg injection (SUBLIMAZE) 50 mcg INTRAVENOUS DAILY PRN PHYSICAL EXAM: 05/08/25 1600 05/08/25 1914 05/09/25 0505 05/09/25 0740 BP: 107/69 114/53 119/62 124/81 Pulse: 64 86 72 68 Resp: 16 16 17 Temp: 36.7 ?C (98.1 ?F) 36.4 ?C (97.5 ?F) 36.7 ?C (98.1 ?F) 36.8 ?C (98.3 ?F) TempSrc: Oral Oral Oral Oral SpO2: 100% 100% 97% 100% Weight: Physical Exam Skin: Coloration: Pallor: .cpwe. Defer Intake/Output Summary (Last 24 hours) at 05/09/2025 0940 Last data filed at 05/08/2025 1418 Gross per 24 hour Intake 0 ml Output 0 ml Net 0 ml TELEMETRY: low voltage noted on telemetry IMAGING: ECG COMPLETE (05/05/2025 9:51 AM) ECHO (05/06/2025 3:50 PM) ECG COMPLETE (05/09/2025 8:19 AM) CARD CATH DIAGNOSTIC (08/16/2021 7:58 AM) DATA: Laboratory: Recent Labs 05/08/25 0352 05/07/25 0538 WBC 6.41 6.03 HB 8.4* 8.7* HCT 27.7* 29.4* PLT 194 201 NA 137 136 K 4.4 4.4 CHLOR 94* 94* CO2 28 26 BUN 24 17 CREAT 6.76* 4.88* GLUC 99 83 Recent Labs 05/08/25 0352 05/07/25 0538 INR 3.3* 2.6* ASSESSMENT / RECOMMENDATIONS / PLAN In summary, the patient is a 45 year old male with past medical history significant for: Mitral stenosis s/p MVR mechanical c/b CHB 08/03/2021 (resolved without PPM) on warfarin Atrial fibrillation s/p MAZE Hx Bacterial endocarditis with staph aureus HTN Severe central stenosis of the SVC and abdominal varices 2/2 multiple past bilateral IJ TDCs ESRD, anuric on iHD, AV fistula MWF Anemia of chronic disease Obesity, BMI >35 Hearing loss 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 2/2 ESRD YEIMY on CPAP Pulmonary embolism Multiple non-healing wounds Blind left eye Patient presented 04/20/25 with bleeding chest wound s/o supratherapeutic INR Cardiology consulted 05/06/25 for Cardiology consulted 05/06/25 for Mobitz type 1 second-degree block Home cardiac medications ASA 81 mg D Midodrine 10 mg Q 8 hours Warfarin 05/09 BP 98/45-124/81 HR 60-80 AFIB on EKG 0819 RA/ CPAP given very long DE interval Mobitz 1 second-degree AV block with risk of further conduction progression as well as chronic SVC occlusive disease would like to consult our electrophysiology allergy team for planning/considerations regarding if patient were to need for pacemaker implantation. MVR - Mitral stenosis s/p MVR mechanical c/b CHB 08/03/2021 (resolved without PPM) on warfarin 05/06/25 TTE LVEF 60% LVH. On-X # 25 Prior gradients of 17/6 mmHg at 74 bpm. Unable to obtain MV gradients on today's exam. 08/16/2021 [facility] with normal coronaries INR 2.5-3.5 - goal Mobitz type 1 second-degree block EP consult - pending Case discussed with Dr. Jesús Barrios We will sign off. Thank you for allowing us to participate in the care of Mr. Weston. Please contact us if any further questions or concerns SIGNATURE: Armida Joseph APRN.CNP PATIENT NAME: Elia Weston DATE: May 09, 2025 TIME: 1600 THERAPY NT Observed: 05/09/2025 9:27 AM Status: COMPLETED Source: [facility] ID: [id number] Author: RENÉE MARTINES, PT, DPT Service: Physical Therapy Author Type: Physical Therapist Type: Therapy (PT/OT/Speech/Resp) Filed: 05/09/2025 09:27 Note Text: PHYSICAL THERAPY MISSED VISIT SERVICE DATE: 05/09/2025 SERVICE TIME: 926 ROOM: [place] [address] (Q6-1 Hemodialysis) Patient not seen due to Test / Procedure. SIGNATURE: Renée Martines PT, DPT PATIENT NAME: Elia Weston DATE: May 09, 2025 TIME: 9:27 AM PROGRESS Observed: 05/08/2025 12:31 PM Status: COMPLETED Source: [facility] ID: [id number] Author: BORIS LUU MD Service: Cardiovascular Medicine Author Type: Physician Type: Progress Notes Filed: 05/10/2025 10:23 Note Text: [facility] CONSULT PROGRESS NOTE (Template ID [id number]) CONSULTING SERVICE: Cardiology: Consult Team PRIMARY SERVICE: Cardiology: Clinical HOSPITAL DAY: #17 SUBJECTIVE INTERVAL HISTORY: Had some bleeding overnight from chest wound Currently resting comfortably in bed CPAP mask in place No subjective complaints currently OBJECTIVE MEDICATIONS: Current Facility-Administered Medications Medication Dose Route Frequency NaCl 0.9% iv flush bag 20 mL INTRAVENOUS PRN acetaminophen 650 mg tab(s) (TYLENOL) 650 mg ORAL q 6 H PRN aspirin 81 mg chewable tab(s) 81 mg ORAL DAILY midodrine 20 mg tab(s) (PROAMATINE) 20 mg ORAL q 8 H cinacalcet 60 mg tab(s) (SENSIPAR) 60 mg ORAL DAILY iv contrast (radiology procedure) INTRAVENOUS DIRECTED PRN sevelamer carbonate 800 mg tab(s) (RENVELA) 800 mg ORAL TID w MEALS oxyCODONE IR 10 mg tab(s) (ROXICODONE) 10 mg ORAL q 6 H PRN polyethylene glycol 3350 17 g packet 17 g ORAL DAILY calcitriol 1.5 mcg cap(s) (ROCALTROL) 1.5 mcg ORAL - LORazepam 0.25 mg tab(s) (ATIVAN) 0.25 mg ORAL DAILY PRN fentaNYL 50 mcg/mL 25 mcg injection (SUBLIMAZE) 25 mcg INTRAVENOUS DAILY PRN warfarin order for discharge OTHER PRN ascorbic acid 500 mg chewable tab(s) 500 mg ORAL DAILY pyridoxine (vitamin B6) 50 mg tab(s) (VITAMIN B6) 50 mg ORAL DAILY vitamin A 10,000 Units cap(s) (AQUASOL A) 10,000 Units ORAL DAILY sodium chloride 0.9 % (flush) 2-10 mL (BD POSIFLUSH) 2-10 mL INTRAVENOUS DIRECTED PRN And perflutren lipid microspheres 1.1 mg/mL 1.3 mL injection (DEFINITY) 1.3 mL INTRAVENOUS DIRECTED PRN senna 8.6 mg tab(s) (SENOKOT) 8.6 mg ORAL/FEEDING TUBE BID fentaNYL 50 mcg/mL 50 mcg injection (SUBLIMAZE) 50 mcg INTRAVENOUS DAILY PRN warfarin 5 mg tab(s) (COUMADIN) 5 mg ORAL/FEEDING TUBE ONCE - WARFARIN PHYSICAL EXAM: 05/08/25 0439 05/08/25 0455 05/08/25 0800 05/08/25 1151 BP: 102/58 (!) 127/41 (!) 98/45 Pulse: (!) 142 68 69 67 Resp: 18 14 18 18 Temp: 36.6 ?C (97.9 ?F) 36.9 ?C (98.4 ?F) 36.6 ?C (97.9 ?F) TempSrc: Oral Axillary Oral SpO2: 100% 98% 100% 99% Weight: Physical exam: General Appearance: Resting in bed comfortably. CPAP mask on S1, S2-brisk valve clicks Chest wall wound dressing in place Trace lower extremity edema Intake/Output Summary (Last 24 hours) at 05/08/2025 1231 Last data filed at 05/08/2025 0950 Gross per 24 hour Intake 0 ml Output 0 ml Net 0 ml DATA: Laboratory: Recent Labs 05/08/25 0352 05/07/25 0538 05/06/25 0856 WBC 6.41 6.03 6.39 HB 8.4* 8.7* 7.9* HCT 27.7* 29.4* 26.0* PLT 194 201 194 NA 137 136 138 K 4.4 4.4 4.7 CHLOR 94* 94* 96* CO2 28 26 26 BUN 24 17 32* CREAT 6.76* 4.88* 7.53* GLUC 99 83 90 Recent Labs 05/08/25 0352 05/07/25 0538 05/06/25 0856 INR 3.3* 2.6* 2.3* ASSESSMENT / RECOMMENDATIONS / PLAN Hospital Problem List reviewed. #2nd degree AV block type 1 # First-degree AV block #severe MS s/p mechanical mitral valve replacement(on-x)(INR target 2.5-3.5) #chronic hypotension #chronic SVC occlusive disease #chronic anemia #AFIB s/p MAZE LAAL #CAD s/p CABG 45-year-old male patient who presented with bleeding from the chest wound in the setting of supratherapeutic INR-he is on warfarin given his mechanical mitral prosthesis as well as history of A-fib. EKG shows Mobitz 1 second-degree AV block and this is present on his telemetry currently as well. Very long first-degree AV delay in conduction. Significantly longer than prior EKG. Recommendations 1. Continue telemetry monitoring while inpatient for evidence of higher degree AV block 2. TTE images are quite limited technically difficult exam-no obvious evidence of dysfunction of his prosthetic mitral valve with no significant MR 3. Anticoagulation in setting of mechanical mitral valve and [id number] INR 2.5-3.5-Wound care re-eval given bleeding? 5. At this point given very long DE interval Mobitz 1 second-degree AV block with risk of further conduction progression as well as chronic SVC occlusive disease would like to consult our electrophysiology allergy team for planning/considerations regarding if patient were to need for pacemaker implantation. I spent 25 minutes in the visit, with more than 50% of the total [id number] time of the visit in counseling / coordination of care. SIGNATURE: Boris Luu MD PATIENT NAME: Elia Weston DATE: May 08, 2025 TIME: 12:31 PM PROGRESS Observed: 05/08/2025 11:21 AM Status: COMPLETED Source: [facility] ID: [id number] Author: SANA MIR MD Service: General Internal Medicine Author Type: Physician Type: Progress Notes Filed: 05/08/2025 13:28 Note Text: INPATIENT INTERNAL MEDICINE PROGRESS NOTE PATIENT NAME: Elia Weston ; AGE: 6 1980; 45 year old HOSPITAL ROOM: [place] [address] DATE OF SERVICE: 05/08/2025 ATTENDING PHYSICIAN: Sana Mir MD TIME OF SERVICE: AM Rounds SERVICE: Inpatient Medicine service Admit Date: 04/20/2025 Length of Stay: 17 Reason for Admission: Bleeding from wounds. Brief Summary Mr. 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 Patient was hospitalized in September 2024 to October 2024 for pain and bleeding from the wounds. Patient was seen by dermatology back then for his skin ulcers. Biopsy performed and was most c/w reactive ischemic changes without features of Pyoderma Gangrenosum or Calciphylaxis. Now, plan for venoplasty with IR pending improvement in INR. Dermatology consulted and underwent steroid trial at wound edge. He was bridged to warfarin while here given his history of mechanical valve. Stay further complicated by new bradycardia, found to have Mobitz 1 second-degree AV block for which cardiology/EP was consulted. Interval Events/Subjective: - Overnight, patient had significant bleeding from chest wounds. - INR 3.3 this am - Vitals: Afebrile, HR 52-78, 78 this am, low-stable SBP 93-113 with MAPs 61-79, satting well on RA and CPAP. - Warfain 5 mg given today Objective: BP: 127/41 Temp: 36.9 ?C (98.4 ?F) Temp src: Axillary Pulse: 69 Resp: 18 O2 Therapy: Continuous Positive Airway Pressure SpO2: 100 % Physical Exam GENERAL: Alert, no distress, cooperative SKIN: Unable to assess, patient declined. Previously seen: R and L anterior and posterior chest wounds - chronic, bleeding, no purulent discharge. Right flank/back chronic wounds. Images scanned in chart. LUNGS: Lungs clear to auscultation bilaterally, no wheezes or crackles. CARDIAC: Regular rate and rhythm. No murmurs. ABDOMEN: Distended, non-tender. EXTREMITIES: No pitting edema on lower extremities bilaterally. Pertinent Labs: INR: 2.6(goal of 2.5-3.5), BUN: , Cr: , Hgb: 8.7 Lines, Drains, and Airways Line Duration Peripheral 04/26/25 2[facility] Right Forearm 20 Gauge 11 days Dialysis / Apheresis Double Lumen 04/29/25 1005 [facility] Tunneled Right Internal Jugular 9 days Active Hospital Problems Diagnosis Bleeding from open wound of chest wall, right, initial encounter Second degree AV block, Mobitz type I Vitamin C deficiency Vitamin A deficiency Vitamin B6 deficiency Skin ulcers (HCC) Hypervolemia Difficult intravenous access Consult IR prior to removal of any catheters Bleeding from wound Open chest wound, right, sequela Unknown etiology Open chest wound, left, sequela Unknown etiology Back wound, unspecified laterality, sequela - Mid Back - Unknown Etiology - POA - Right Upper Back - Unknown Etiology - POA Open wound of abdomen Unknown Etiology Open wound of right thigh Unknown Etiology Wounds, multiple Anemia due to multiple mechanisms Hemorrhage from open wound of left chest wall Ulcers, venous (HCC) Status post Maze operation for atrial fibrillation 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 Acquired hypothyroidism Adjustment disorder with depressed mood Acute on chronic blood loss anemia Supratherapeutic INR S/P MVR (mitral valve replacement) History: MR Assessment: 08/21/2021: OnX + posterior mitral annulus patch with bovine pericardial + Left CryoMAZE + Left atrial appendage ligation Plan: ASA, start Coumadin 08/24, hep gtt Vitamin D deficiency History of non-ST elevation myocardial infarction (NSTEMI) ESRD on hemodialysis (HCC) Atrial fibrillation (HCC) on Coumadin and Amiodarone Secondary hyperparathyroidism, renal (HCC) Reportedly elevated PTH High PhxCa ratio in the past Now with worsening metastatic calcifications Will recheck Ca, PO4, Vitamin D, and PTH Continue phosphate binders If PTH elevated, ? Need to calcimemtics to suppress the PTH Will discuss further with the nephrology team MEDICATIONS Current Facility-Administered Medications Medication Dose Route Frequency NaCl 0.9% iv flush bag 20 mL INTRAVENOUS PRN acetaminophen 650 mg tab(s) (TYLENOL) 650 mg ORAL q 6 H PRN aspirin 81 mg chewable tab(s) 81 mg ORAL DAILY midodrine 20 mg tab(s) (PROAMATINE) 20 mg ORAL q 8 H cinacalcet 60 mg tab(s) (SENSIPAR) 60 mg ORAL DAILY iv contrast (radiology procedure) INTRAVENOUS DIRECTED PRN sevelamer carbonate 800 mg tab(s) (RENVELA) 800 mg ORAL TID w MEALS oxyCODONE IR 10 mg tab(s) (ROXICODONE) 10 mg ORAL q 6 H PRN polyethylene glycol 3350 17 g packet 17 g ORAL DAILY calcitriol 1.5 mcg cap(s) (ROCALTROL) 1.5 mcg ORAL - LORazepam 0.25 mg tab(s) (ATIVAN) 0.25 mg ORAL DAILY PRN fentaNYL 50 mcg/mL 25 mcg injection (SUBLIMAZE) 25 mcg INTRAVENOUS DAILY PRN warfarin order for discharge OTHER PRN ascorbic acid 500 mg chewable tab(s) 500 mg ORAL DAILY pyridoxine (vitamin B6) 50 mg tab(s) (VITAMIN B6) 50 mg ORAL DAILY vitamin A 10,000 Units cap(s) (AQUASOL A) 10,000 Units ORAL DAILY sodium chloride 0.9 % (flush) 2-10 mL (BD POSIFLUSH) 2-10 mL INTRAVENOUS DIRECTED PRN And perflutren lipid microspheres 1.1 mg/mL 1.3 mL injection (DEFINITY) 1.3 mL INTRAVENOUS DIRECTED PRN senna 8.6 mg tab(s) (SENOKOT) 8.6 mg ORAL/FEEDING TUBE BID fentaNYL 50 mcg/mL 50 mcg injection (SUBLIMAZE) 50 mcg INTRAVENOUS DAILY PRN warfarin 5 mg tab(s) (COUMADIN) 5 mg ORAL/FEEDING TUBE ONCE - WARFARIN Labs: CBC: Recent Labs 05/08/25 0352 05/07/25 0538 05/06/25 0856 05/05/25 1813 05/05/25 0551 05/04/25 0405 05/03/25 0628 WBC 6.41 6.03 6.39 -- 5.68 5.69 6.05 HB 8.4* 8.7* 7.9* 9.5* 8.4* 9.6* 8.3* HCT 27.7* 29.4* 26.0* 32.0* 28.0* 31.5* 27.4* PLT 194 201 194 -- 223 240 259 MCV 92.6 94.2 93.2 -- 92.7 94.3 92.6 RDWCV 20.2* 20.5* 20.1* -- 19.9* 20.0* 19.8* COAG: Recent Labs 05/08/25 0352 05/07/25 0538 05/06/25 2243 05/06/25 1534 05/06/25 0856 05/05/25 0552 05/04/25 0406 05/03/25 0628 05/02/25 1720 05/02/25 0922 05/02/25 0216 APTT -- 60.1* 55.4* 80.1* 69.8* 60.1* 55.8* 58.5* 60.0* < > 44.1* INR 3.3* 2.6* -- -- 2.3* 1.9* 1.9* 1.7* -- -- 1.8* < > = values in this interval not displayed. BMP: Recent Labs 05/08/2535105/07/2553705/06/25 0856 05/05/25 0551 05/04/25 0406 05/03/25 0628 05/02/25 0216 GLUC 99 83 90 93 109* 72* 76 NA 137 136 138 137 136 136 136 K 4.4 4.4 4.7 4.3 5.0 4.3 5.1 CHLOR 94* 94* 96* 94* 93* 94* 93* CO2 28 26 26 28 24 26 23 ANION 15 16* 16* 15 19* 16* 20* BUN 24 17 32* 21 34* 23 41* CREAT 6.76* 4.88* 7.53* 5.29* 7.02* 5.64* 8.39* CHEM: Recent Labs 05/08/2535105/07/2553705/06/25 0856 05/05/25 0551 05/04/25 0406 05/03/25 0628 05/02/25 0216 ALB 3.7* 3.6* 3.4* 3.4* 3.7* 3.4* 3.5* CA 7.9* 8.2* 7.7* 8.1* 7.7* 7.8* 7.5* MG -- -- -- 2.2 -- -- -- HEPATIC: No results for input(s): ALKPHOS, ALT, AST, TBILI, LIPASE in the last 168 hours. URINALYSIS:No results for input(s): PH, SPGR, UGLUC, UBILI, UKET, UHB, UPROT, UROBIL, UWBC, SSA in the last 168 hours. Invalid input(s): NITR CARDIAC: No results for input(s): CKTEST, CKMB, CKMBP, TROPT, PBNP in the last 168 hours. MICROBIOLOGY: Positive Micro-30 Days No results found for the last 720 hours. Imaging: Transthoracic echocardiogram 05/06/25: EF: 60%, left ventricular hypertrophy, right ventricle normal, trace tricuspid valve regurgitation, trace pulmonic valve regurgitation, no pericardial effusion, aorta normal in size CXR 04/21/25: TDC with tip in RA. Increase of perihilar and basilar opacities with volume loss, suggesting atelectasis, possible underlying edema/inflammation. Blunting of L CP angle, which may represent tiny effusion or pleural thickening. CT A/P 04/22/25: No abdominal or pelvic subcutaneous fluid collection of gas. Redemonstrated diffuse subcutaneous extensive abdominal wall collaterals, similar to prior CTA 10/17/2024. CT chest 04/22/25: extensive chest wall collaterals, few areas of skin ulceration, no areas of drainable fluid collection. Findings consistent with central venous stenoses. Few patchy groundglass opacities, may be related to mild pulm edema Assessment AND Plan: Elia Weston is a 45 year old male with extensive PMH, significant for ESRD on HD (MWF) last session 04/18 (skipped Friday since he came to ED), CAD s/p CABG, severe MS s/p MVR on Warfarin, pAfib s/p maze procedure and RADHA clip and chronic chest/abdominal/back wounds (3 years) likely secondary to ischemia in context of SVC syndrome and multiple thrombosis, who presented to the ED with 1-day of left chronic chest wound bleeding. Admitted for management of bleeding, and on transfer to [facility], patient began to have significant bleeding from R chest wound. Continuous pressure was applied and bleeding stopped. Now s/p FFP and RBC transfusions as appropriate. Initially started on Vanc/Zosyn given elevated ESR/CRP and WBC, no infectious concern on further imaging with improved lactate WBC, so abx were stopped. Dermatology and wound care consulted. IR consulted, planning for venoplasty given INR reversal. 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 Hx of hemorrhagic shock from bleeding abdominal wounds - presenting with acute worsening of pain and bleeding from wounds. Denies purulent discharge from wounds. - Leukocytosis + Elevated CRP 22.1 and ESR 133 + Elevated lactate on presentation; concerned for infected wounds/soft tissue infection. Started on IV vanc/zosyn, later d/janie due to low infectious concern (04/21-04/25) - On admission, acute rise in lactate in light of acute significant bleeding and drop in HGB (8.6 from 9.5 in ED) likely secondary to hypovolemia, also missed dialysis - CT venogram on 10/19/24 with b/l brachiocephalic stenosis w b/l subclavian vein occlusion, extensive venous collaterals - 10/22/24: Venoplasty completed by IR, removed L femoral TDC, exchanged R TDC - blood cultures 04/20/25 with NG5D x2 - AMET for hypotension 80/50, s/p 500 cc LR bolus, scheduled midodrine with improved repeat 102/63 - lactate 2.4 from 1.7, improved from 3.2 at admission. Completed 5d course of IV vanc/zosyn (04/21-04/25) - CT chest and CT A/P 04/22/25 with no drainable fluid collections, extensive chest collaterals - nutritional workup: B12 elevated, folate wnl, iron low 26, TIBC low 137, trans sat wnl, low vit D 22.9, zinc 69 wnl, low vit A 0.10 - 04/29/25: Venoplasty: completed by IR. 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 Right upper chest tunneled dialysis catheter was exchanged over a wire for a new on; ready for use PLAN: - IR consulted: > venoplasty 04/29/2025 - no complications - Derm consulted: > ongoing nutritional workup > discontinued clobetasol 0.05% ointment BID per derm, lesion over R scapula, try to simulate tx of PG and assess response > [facility] Derm f/u outpatient - continue vitamin D supplement 5000 unit(s), ascorbic acid 500mg/day, vit B6 50mg/day, vit A 10,000 units/day - wound care team consulted, appreciate care - pain control: tylenol 650 mg q6h prn and oxycodone 10 mg po q6h PRN. > IV fent for dressing changes as needed - plastic surgery consulted: > no indication for surgical intervention at this time - Cautious fluid resuscitation in light of acute bleeding and ESRD anuric on HD - Chest wound dressings to be changed every day #Supratherapeutic INR #CAD s/p CABG #Severe MS s/p mechanical MVR on coumadin #Paroxysmal Afib s/p multiple DCCV s/p Maze procedure + RADHA clip (07/2021) - atrial fibrillation and severe mitral stenosis s/p mechanical mitral valve replacement with On-x valve (INR goal 2.5-3.5), Maze procedure and RADHA clip on 08/21/2021. - Goal INR 2.5- 3.5; on warfarin 2.5 mg daily although patient not sure of dose, has been changed recently; last dose of warfarin Thursday 04/19 - INR elevated to 5.1 on admission, improved to 3.9 s/p 2u FFP 04/21 - possible etiology of supratherapeutic INR: warfarin dose (given patient not sure of home dose) vs malnutrition vs liver disease (less likely given AST/ALT wnl) - INR elevated again to 5.3, patient received po vitamin K 5 mg 04/25. Improved to 1.7 - INR 3.3 on 05/08 PLAN: - given subtherapeutic INR and no intervention by plastic surgery planned, continue bridging to warfarin > goal INR 2.5 - 3.5, given mechanical valve. - heparin discontinued 05/07. Will plan for warfarin 5 mg dosing on 05/08 - Daily INR - Follows with Dr. Moreno (cardiology in [place]) for mgmt of Coumadin, will need follow-up outpatient # Second-degree AV Block - Patient having multiple episodes of bradycardia in the hospital with low blood pressures - Magnesium level 2.2 (05/05/25) - EKG (05/05/25) shows Second degree AV block, mobitz type 1 - EKG (05/06/25): shows sinus rhythm with 2nd degree AV shantell, mobitz type 1 - Transthoracic echocardiogram 05/06/25: EF: 60%, left ventricular hypertrophy, right ventricle normal, trace tricuspid valve regurgitation, trace pulmonic valve regurgitation, no pericardial effusion, aorta normal in size PLAN: - Cardiology team consulted, appreciate recs - Echocardiogram completed, results as above - Consult with electrophysiology team for possible intervention (team not available on the weekends, will likely see her Friday but should call them on Friday as well) #Constipation - Last recorded bowel movement was on 05/03/25 PLAN: - Polyethylene glycol daily - Start Senna BID #ESRD on HD via Right TDC #Chronic Hypotension #Secondary 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 - iHD at [facility] through R. Tunneled HD catheter MWF - Last dialysis session Friday04/18/2025; missed Fri session because he presented to [facility] ED - anuric at baseline per patient - Serum P=9.7 - completed HD 04/21, now on MWF - PTH elevated 578, Ca 8.3 low PLAN: - nephrology consulted: > continue MWF HD schedule > continue calcitriol MWF - Continue Sensipar, renvela with meals - continue home Midodrine 20mg every 8 hours #Anemia of Chronic Disease/ESRD - Baseline hemoglobin 9-11 - iron studies 12/2024: iron 33, TIBC 156, Iron sat 21, ferritin 1327 - Hgb dropping iso bleeding wounds, as above. - received 1u pRBC 04/21, Hgb from 7.3 -> 7.7 post-transfusion - Hgb 6.9 on 04/22, s/p additional 2u pRBC with Hgb in ~8s PLAN: - Hgb goal >8, 8.4 this am - chronic wound mgmt, as above #Code status - Full # Diet - renal # VTE PPx - warfarin # Dispo Planning - Pending clinical course, SW consulted for recent unemployment, c/f food insecurity These recommendations and plan are not final until co-signed by the attending physician Sana Mir MD. Dayan Kc MD Internal Medicine PGY3 Attending Note I evaluated the patient and personally participated in the mendoza components. I agree with the resident's findings and plan as documented and have discussed the case and management of the patient's care with the resident. 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 Chest wall wound did re-bleed overnight last night. Bleeding resolved with pressure. No active bleeding today. Hgb stable. This admission was seen by derm and plastic surgery. No further intervention at this time. Pain control. Needs daily dressing changes. On IHD MWF. Underwent balloon angioplasty of R innominate vein stenosis and R TDC exchange on 04/29 with vascular surgery. Next dialysis on Friday. Has been bridged back to warfarin with heparin gtt, INR 3.3 today. Managed by outpatient parts delivery driver in [place]. 05/06 noted to have Mobitz 1 with very prolonged DE interval. Echo obtained and has limited views but is largely stable. Cardiology is recommending EP evaluation. EP cannot see until Friday. Plan for EP eval on Friday as well as IHD. DC pending EP recs. Sana Mir MD Associate Staff Hospital Medicine CBC PNL BLD AUTO Collected: 5 3:52 AM Status: F Source: [facility] Order Comment: Specimen Type : BLOOD SPECIMEN Ordering Facility: [facility] Address: [address] [place] [address] TYPE CODE TESTS RESULT OUT OF RANGE REFERENCE UNITS LAB 6690-2(LOINC) WBC # Bld Auto 6.41 3.70-11.00 k/uL LAB 789-8(LOINC) RBC # Bld Auto 2.99 Low 4.20-6.00 m/uL LAB 718-7(LOINC) Hgb Bld-mCnc 8.4 Low 13.0-17.0 g/dL LAB 4544-3(LOINC) Hct VFr Bld Auto 27.7 Low 39.0-51.0 % LAB 787-2(LOINC) MCV RBC Auto 92.6 80.0-100.0 fL LAB 785-6(LOINC) MCH RBC Qn Auto 28.1 26.0-34.0 pg LAB 786-4(LOINC) MCHC RBC Auto-mCnc 30.3 Low 30.5-36.0 g/dL LAB 57270-5(LOINC) RDW RBC-Rto 20.2 High 11.5-15.0 % LAB 777-3(LOINC) Platelet # Bld Auto 194 150-400 k/uL LAB 89546-7([facility]) PMV Bld Auto 12.1 9.0-12.7 fL LAB 771-6(INC) nRBC # Bld Auto <0.01 <0.01 k/uL Performed By: #### 03633-8 # ### [facility] CLIA [id number] [address] [place] [address] [place] [address] [place] RENAL FUNC 2000 PNL SERPL Collected: 3:52 AM Status: F Source: [facility] Order Comment: Specimen Type : BLOOD SPECIMEN Ordering Facility: [facility] Address: [address] [place] [address] TYPE CODE TESTS RESULT OUT OF RANGE REFERENCE UNITS LAB 1751-7(LOINC) Albumin SerPl-mCnc 3.7 Low 3.9-4.9 g/dL LAB 77869-1(LOINC) Calcium SerPl-mCnc 7.9 Low 8.5-10.2 mg/dL LAB 2777-1(LOINC) Phosphate SerPl-mCnc 3.9 2.7-4.8 mg/dL LAB 2345-7(LOINC) Glucose SerPl-mCnc 99 74-99 mg/dL Result Comment: The [place] Diabetes Association (ADA) provides guidance for cutoff values for fasting glucose and random glucose. The ADA defines fasting as no caloric intake for at least 8 hours. Fasting plasma glucose results between 100 to 125 mg/dL indicate increased risk for diabetes (prediabetes). Fasting plasma glucose results greater than or equal to 126 mg/dL meet the criteria for diagnosis of diabetes. In the absence of unequivocal hyperglycemia, results should be confirmed by repeat testing. In a patient with classic symptoms of hyperglycemia or hyperglycemic crisis, random plasma glucose results greater than or equal to 200 mg/dL meet the criteria for diagnosis of diabetes. Reference: Standards of Medical Care in Diabetes 2016, [place] Diabetes Association. Diabetes Care. 2016.39(Suppl 1). LAB 3094-0(LOINC) BUN SerPl-mCnc 24 9-24 mg/dL LAB 2160-0(LOINC) Creat SerPl-mCnc 6.76 High 0.73-1.22 mg/dL LAB 2951-2(LOINC) Sodium SerPl-sCnc 137 136-144 mmol/L LAB 2823-3(LOINC) Potassium SerPl-sCnc 4.4 3.7-5.1 mmol/L LAB 2075-0(LOINC) Chloride SerPl-sCnc 94 Low 98-107 mmol/L LAB 2027-9(LOINC) CO2 SerPl-sCnc 28 22-30 mmol/L LAB 17795-8(LOINC) Anion Gap SerPl-sCnc 15 8-15 mmol/L LAB 97485-8(LOINC) eGFRcr SerPlBld CKD-EPI 2020 10 Low >=60 mL/min/1. 73m??? Result Comment: Estimated Gl omerular Filtration Rate (eGFR) is calculated using the 2020 CKD-EPI creatinine equation. This equation utilizes serum creatinine, sex, and age as parameters. The creatinine assay has traceable calibration to isotope dilution-mass spectrometry. Refer to KDIGO guidelines for clinical interpretation. In patients with unstable renal function, e.g. those with acute kidney injury, the eGFR may not accurately reflect actual GFR. Performed By: #### 76993-9, 2276-4, 45644-5 #### [facility] CLIA [id number] [address] [place] [address] [place] IRON+TIBC PNL SERPL Collected: 05/08/2025 3:[address] atus: F Source: [facility] Order Comment: Specimen Type : BLOOD SPECIMEN Ordering Facility: [facility] Address: [address] [place] [address] TYPE CODE TESTS RESULT OUT OF RANGE REFERENCE UNITS LAB 2498-4(LOINC) Iron SerPl-mCnc 36 Low 41-186 ug/dL LAB 2500-7(LOINC) TIBC SerPl-mCnc 234 232-386 ug/dL LAB 16971-4(INC) Iron/TIBC SerPl-sRto 15.4 15.0-57.0 % Performed By: #### 58802-3, 2276-4, 14112-1 #### [facility] CLIA [id number] [address] [place] [address] [place] FERRITIN SERPL-MCNC Collected: 05/08/20 3:52 AM Status: F Source: [facility] Order Comment: Specimen Type : BLOOD SPECIMEN Ordering Facility: [facility] Address: [address] [place], [place] [id number] TYPE CODE TESTS RESULT OUT OF RANGE REFERENCE UNITS LAB 2276-4(LOINC) Ferritin SerPl-mCnc 996.0 High 30.3-565.7 ng/mL Performed By: #### 07059-1, 2276-4, 34294-9 #### [facility] CLIA [id number] [address] [place], [place] [id number] [facility] PT PNL PPP Collected: 05/08/2025 3:52 AM Status: F Source: [facility] Order Comment: Specimen Type : BLOOD SPECIMEN Ordering Facility: [facility] Address: [address] [place] [address] TYPE CODE TESTS RESULT OUT OF RANGE REFERENCE UNITS LAB 5902-2(LOINC) Prothrombin time 33.1 High 9.7-13.0 sec LAB 6301-6(LOINC) INR PPP 3.3 High 0.9-1.3 Result Comment: Vitamin K An tagonist (VKA) Therapeutic Range: INR 2 to 3 (Target INR of 2.5) Note: For patients treated with VKA drugs, such as warfarin, the [place] [employer]icians 2012 Guideline recommends a therapeutic INR range of 2 to 3 (target INR of 2.5). This recommendation includes high-risk patients with antiphospholipid syndrome with previous arterial or venous thromboembolism, current-generation mechanical or bioprosthetic aortic heart valve replacement. Note: Patients with mechanical aortic valve replacement and additional risk factors for thromboembolic events (atrial fibrillation, previous thromboembolism, LV dysfunction, hypercoagulable conditions) or an older generation mechanical AVR (i.e., ball in-Cage) or any mechanical MVR should have a INR therapeutic range of 2.5 to 3.5 (target INR of 3). Ranjit YOUSSEF, et al. Chest 2012, 141:7S-47S Kevin RUSHING et al. JAC 2017, 70: 252-289 Performed By: #### 30357-4 # ### [facility] CLIA [id number] [address] [place] [address] [place] PLAN OF CARE Observed: 05/07/2025 5:37 PM Status: COMPLETED Source: [facility] HNO ID: [id number] Author: JUANI DÍAZ MD Service: General Internal Medicine Author Type: Resident Type: Plan of Care Filed: 05/07/2025 17:53 Note Text: Paged by nurse regarding new onset profuse bleeding from R chest wound. Vitals stable. Saw patient at bedside, patient at baseline, without acute distress. Bleeding had stopped. Discussed case with nurse and patient. Evaluation was reassuring INR 2.6 (prev 2.3). Is within ranged but bleeding was profuse and difficult to stop. Will half night dose and discuss with team in the morning. CONSULT PROG Observed: 05/07/2025 11:33 AM Status: COMPLETED Source: [facility] HNO ID: [id number] Author: BORIS LUU MD Service: Cardiovascular Medicine Author Type: Resident Type: Consult Progress Note Filed: 05/07/2025 12:12 Note Text: Attestation signed by Boris uLu MD at 05/07/2025 12:12 PM [facility] STAFF PHYSICIAN NOTE OF PERSONAL INVOLVEMENT IN CARE IMPRESSION AND PLAN: #2nd degree AV block type 1 # First-degree AV block #severe MS s/p mechanical mitral valve replacement(on-x)(INR target 2.5-3.5) #chronic hypotension #chronic SVC occlusive disease #chronic anemia #AFIB s/p MAZE LAAL #CAD s/p CABG 45-year-old male patient with history as above who presented with bleeding from the chest wound in the setting of supratherapeutic INR-he is on warfarin given his mechanical mitral prosthesis as well as history of A-fib. Seen this morning while using CPAP mask. EKG shows Mobitz 1 second-degree AV block and this is present on his telemetry currently as well. Very long first-degree AV delay in conduction. Significantly longer than prior EKG. Recommendations 1. Continue telemetry monitoring while inpatient for any evidence of higher degree AV block 2. TTE images are quite limited technically difficult exam-no obvious evidence of infection related to his prosthetic mitral valve or significant valvular dysfunction. No significant MR 3. Anticoagulation in setting of mechanical mitral valve and R-azw-Xsnihk INR 2.5-3.5 4 On midodrine chronically for hypotension 5. At this point given very long DE interval Mobitz 1 second-degree AV block with risk of further conduction progression as well as chronic SVC occlusive disease would like to consult our electrophysiology allergy team for planning/considerations regarding if patient were to need for pacemaker implantation. I have reviewed the documentation obtained and documented by the Resident and I have personally performed a face to face assessment of the patient and have personally participated in the mendoza components of the visit which includes medical decision making.. I have discussed the case and management of the patient's care. (Inpatient): I personally spent 35 total minutes total time in the management and care of this patient. CARDIOVASCULAR MEDICINE CONSULT PROGRESS NOTE Elia Weston [id number] PRIMARY SERVICE: Internal Medicine CONSULTING SERVICE: Cardiology Consult A HOSPITAL DAY: # 16 INTERVAL HISTORY - Patient continues to be HDS. Still bradycardiac overnight - Reviewed tele events, 2 events noted as pauses are likely in fact prolonged DE with skipped conduction - Echo reviewed, Preserved EF, LVH, otherwise not very remarkable - TSH elevated with normal T4 level Diuretic administrations (last 24 hours) None PHYSICAL EXAM BP 97/73 Pulse 72 Temp 37.2 ?C (99 ?F) (Oral) Resp 18 Wt 115.9 kg (255 lb 8.2 oz) SpO2 (!) 18% BMI 36.99 kg/m? Intake/Output Summary (Last 24 hours) at 05/07/2025 1133 Last data filed at 05/07/2025 0954 Gross per 24 hour Intake 140 ml Output 2000 ml Net -1860 ml General: NAD HEENT: NC/AT CV: low-rate, irregular rhythm Pulm: breathing comfortably on RA, seen on CPAP GI: nondistended Ext: no edema or cyanosis Neuro: alert and grossly oriented Psych: mood normal MEDICATIONS Current Facility-Administered Medications Medication Dose Route Frequency NaCl 0.9% iv flush bag 20 mL INTRAVENOUS PRN acetaminophen 650 mg tab(s) (TYLENOL) 650 mg ORAL q 6 H PRN aspirin 81 mg chewable tab(s) 81 mg ORAL DAILY midodrine 20 mg tab(s) (PROAMATINE) 20 mg ORAL q 8 H cinacalcet 60 mg tab(s) (SENSIPAR) 60 mg ORAL DAILY iv contrast (radiology procedure) INTRAVENOUS DIRECTED PRN sevelamer carbonate 800 mg tab(s) (RENVELA) 800 mg ORAL TID w MEALS oxyCODONE IR 10 mg tab(s) (ROXICODONE) 10 mg ORAL q 6 H PRN polyethylene glycol 3350 17 g packet 17 g ORAL DAILY calcitriol 1.5 mcg cap(s) (ROCALTROL) 1.5 mcg ORAL -WE- LORazepam 0.25 mg tab(s) (ATIVAN) 0.25 mg ORAL DAILY PRN heparin iv infusion 25,000 units in NaCl 0.45% 250 mL LOW DOSE/ACS NOMOGRAM 0-3,000 Units/hr INTRAVENOUS CONTINUOUS And heparin RATE CHANGE bolus 1,000-4,000 Units for subtherapeutic PTTAC results 1,000-4,000 Units INTRAVENOUS PRN fentaNYL 50 mcg/mL 25 mcg injection (SUBLIMAZE) 25 mcg INTRAVENOUS DAILY PRN warfarin order for discharge OTHER PRN ascorbic acid 500 mg chewable tab(s) 500 mg ORAL DAILY pyridoxine (vitamin B6) 50 mg tab(s) (VITAMIN B6) 50 mg ORAL DAILY vitamin A 10,000 Units cap(s) (AQUASOL A) 10,000 Units ORAL DAILY sodium chloride 0.9 % (flush) 2-10 mL (BD POSIFLUSH) 2-10 mL INTRAVENOUS DIRECTED PRN And perflutren lipid microspheres 1.1 mg/mL 1.3 mL injection (DEFINITY) 1.3 mL INTRAVENOUS DIRECTED PRN senna 8.6 mg tab(s) (SENOKOT) 8.6 mg ORAL/FEEDING TUBE BID DATA Recent Labs 05/07/25 0538 05/06/25 0856 05/05/25 1813 05/05/25 0551 WBC 6.03 6.39 -- 5.68 HB 8.7* 7.9* 9.5* 8.4* HCT 29.4* 26.0* 32.0* 28.0* PLT 201 194 -- 223 Recent Labs 05/07/25 0538 05/06/25 0856 05/05/25 0551 NA 136 138 137 K 4.4 4.7 4.3 CO2 26 26 28 BUN 17 32* 21 CREAT 4.88* 7.53* 5.29* GLUC 83 90 93 MG -- -- 2.2 IMAGING Reviewed most recent EKG and imaging. 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 We are consulted for bradycardia and heart block. Pertinent Problem List Bradycardia Prolonged DE interval >400 msec Mobitz Type 1 History of CHB post-op He has previous post-op MVR CHB that improved to 1st degree with very long DE before discharge. He had intermittent EKG in the interim 2021-09/2024 alternating between NSR and 1st degree AV block. EKG on admission concerning for accelerated junctional rhythm and one done yesterday showed very prolonged DE intervals and Mobitz 1. Although he reports no symptoms, including no dizziness and syncope, it is worth noting that this is in context of being on midodrine 20q8 for chronic hypotension. There is also the concern for chest wall infection on admission and although no further clinical signs of infection, it is worth obtaining an echocardiogram to rule out structural AV lala damage, possible (although unlikely) skye-lala abscesses (history of endocarditis?), and worsening MV disease. Given his very long DE interval >400 msec, recommends EP evaluation. Recommendations: EP consult given prolonged DE and Mobitz 1 with risk of further conduction block progression as well as chronic SVC occlusive disease for consideration of pacemaker. (Team Consulted, pending recs) Continues tele monitoring Anti-coagulation iso mechanical MV and Afib with INR target 2.5-3.5 Management of potential subclinical? hypothyroidism per primary team Case discussed with staff. Michael Jacinto MD PGY-2 Internal Medicine Resident PT PNL PPP Collected: 05/07/2025 5:38 AM Status: F Source: [facility] Order Comment: Specimen Type : BLOOD SPECIMEN Ordering Facility: [facility] Address: [address] [place] [address] TYPE CODE TESTS RESULT OUT OF RANGE REFERENCE UNITS LAB 5902-2(LOINC) Prothrombin time 26.6 High 9.7-13.0 sec LAB 6301-6(LOINC) INR PPP 2.6 High 0.9-1.3 Result Comment: Vitamin K An tagonist (VKA) Therapeutic Range: INR 2 to 3 (Target INR of 2.5) Note: For patients treated with VKA drugs, such as warfarin, the [place] [employer]icians 2012 Guideline recommends a therapeutic INR range of 2 to 3 (target INR of 2.5). This recommendation includes high-risk patients with antiphospholipid syndrome with previous arterial or venous thromboembolism, current-generation mechanical or bioprosthetic aortic heart valve replacement. Note: Patients with mechanical aortic valve replacement and additional risk factors for thromboembolic events (atrial fibrillation, previous thromboembolism, LV dysfunction, hypercoagulable conditions) or an older generation mechanical AVR (i.e., ball in-Cage) or any mechanical MVR should have a INR therapeutic range of 2.5 to 3.5 (target INR of 3). Ranjit GH, et al. Chest 2012, 141:7S-47S Kevin RA, et al. [facility] 2017, 70: 252-289 Performed By: #### 31512-2, 82757-7 #### [facility] CLIA [id number] [address] [place] [address] [place] APTT PPP Collected: 5:38 AM Status: F Source: [facility] Order Comment: Specimen Type : BLOOD SPECIMEN Ordering Facility: [facility] Address: [address] [place] [id number] TYPE CODE TESTS RESULT OUT OF RANGE REFERENCE UNITS LAB 15970-4(LOINC) aPTT PPP 60.1 High 23.0-32.4 sec Performed By: #### 64962-1, 52872-9 #### [facility] CLIA [id number] [address] [facility] [place] [address] [place] RENAL FUNC 2000 PNL SERPL Collected: 5:38 AM Status: F Source: [facility] Order Comment: Specimen Type : BLOOD SPECIMEN Ordering Facility: [facility] Address: [address] [place] [address] TYPE CODE TESTS RESULT OUT OF RANGE REFERENCE UNITS LAB 1751-7(LOINC) Albumin SerPl-mCnc 3.6 Low 3.9-4.9 g/dL LAB 58643-1(LOINC) Calcium SerPl-mCnc 8.2 Low 8.5-10.2 mg/dL LAB 2777-1(LOINC) Phosphate SerPl-mCnc 3.4 2.7-4.8 mg/dL LAB 2345-7(LOINC) Glucose SerPl-mCnc 83 74-99 mg/dL Result Comment: The [place] Diabetes Association (ADA) provides guidance for cutoff values for fasting glucose and random glucose. The ADA defines fasting as no caloric intake for at least 8 hours. Fasting plasma glucose results between 100 to 125 mg/dL indicate increased risk for diabetes (prediabetes). Fasting plasma glucose results greater than or equal to 126 mg/dL meet the criteria for diagnosis of diabetes. In the absence of unequivocal hyperglycemia, results should be confirmed by repeat testing. In a patient with classic symptoms of hyperglycemia or hyperglycemic crisis, random plasma glucose results greater than or equal to 200 mg/dL meet the criteria for diagnosis of diabetes. Reference: Standards of Medical Care in Diabetes 2016, [place] Diabetes Association. Diabetes Care. 2016.39(Suppl 1). LAB 3094-0(LOINC) BUN SerPl-mCnc 17 9-24 mg/dL LAB 2160-0(LOINC) Creat SerPl-mCnc 4.88 High 0.73-1.22 mg/dL LAB 2951-2(LOINC) Sodium SerPl-sCnc 136 136-144 mmol/L LAB 2823-3(LOINC) Potassium SerPl-sCnc 4.4 3.7-5.1 mmol/L LAB 2075-0(LOINC) Chloride SerPl-sCnc 94 Low 98-107 mmol/L LAB 2027-(LOINC) CO2 SerPl-sCnc 26 22-30 mmol/L LAB 81586-9(LOINC) Anion Gap SerPl-sCnc 16 High 8-15 mmol/L LAB 66319-9(LOINC) eGFRcr SerPlBld CKD-EPI 2020 14 Low >=60 mL/min/1. 73m??? Result Comment: Estimated Gl omerular Filtration Rate (eGFR) is calculated using the 2020 CKD-EPI creatinine equation. This equation utilizes serum creatinine, sex, and age as parameters. The creatinine assay has traceable calibration to isotope dilution-mass spectrometry. Refer to KDIGO guidelines for clinical interpretation. In patients with unstable renal function, e.g. those with acute kidney injury, the eGFR may not accurately reflect actual GFR. Performed By: #### 76371-6 # ### [facility] CLIA [id number] [address] [place] [address] [place] [facility] CBC PNL BLD AUTO Collected: 5 5:38 AM Status: F Source: [facility] Order Comment: Specimen Type : BLOOD SPECIMEN Ordering Facility: [facility] Address: [address] [place] [address] TYPE CODE TESTS RESULT OUT OF RANGE REFERENCE UNITS LAB 6690-2(LOINC) WBC # Bld Auto 6.03 3.70-11.00 k/uL LAB 789-8(LOINC) RBC # Bld Auto 3.12 Low 4.20-6.00 m/uL LAB 718-7(LOINC) Hgb Bld-mCnc 8.7 Low 13.0-17.0 g/dL LAB 4544-3(LOINC) Hct VFr Bld Auto 29.4 Low 39.0-51.0 % LAB 787-2(LOINC) MCV RBC Auto 94.2 80.0-100.0 fL LAB 785-6(LOINC) MCH RBC Qn Auto 27.9 26.0-34.0 pg LAB 786-4(LOINC) MCHC RBC Auto-mCnc 29.6 Low 30.5-36.0 g/dL LAB 83773-8(LOINC) RDW RBC-Rto 20.5 High 11.5-15.0 % LAB 777[facility] Platelet # Bld Auto 201 150-400 k/uL LAB 69590-0[facility] PMV Bld Auto 12.4 9.0-12.7 fL LAB 771-6([facility]) nRBC # Bld Auto <0.01 <0.01 k/uL Performed By: #### 44347-9 # ### [facility] [facility] CLIA [id number] [address] [place] [address] OF [facility] PROGRESS Observed: 05/07/2025 5:04 AM Status: COMPLETED Source: [facility] HNO ID: [id number] Author: SANA MIR MD Service: General Internal Medicine Author Type: Physician Type: Progress Notes Filed: 05/07/2025 13:25 Note Text: INPATIENT INTERNAL MEDICINE PROGRESS NOTE PATIENT NAME: Elia Weston ; AGE: 6 1980; 45 year old HOSPITAL ROOM: [place] [address] DATE OF SERVICE: 05/07/2025 ATTENDING PHYSICIAN: Sana Mri MD TIME OF SERVICE: AM Rounds SERVICE: Inpatient Medicine service Admit Date: 04/20/2025 Length of Stay: 16 Reason for Admission: Bleeding from wounds. Brief Summary Mr. 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 Patient was hospitalized in September 2024 to October 2024 for pain and bleeding from the wounds. Patient was seen by dermatology back then for his skin ulcers. Biopsy performed and was most c/w reactive ischemic changes without features of Pyoderma Gangrenosum or Calciphylaxis. Now, plan for venoplasty with IR pending improvement in INR. Dermatology consulted, plan for starting topical steroid on wound edge. Interval Events/Subjective: - No acute events overnight, slept well overnight. - This morning, patient lying in bed comfortable. Denies pain on his chest wounds. No new concerns. - Vitals: Afebrile, HR 52-78, 78 this am, low-stable SBP 93-113 with MAPs 61-79, satting well on RA and CPAP. - Warfain 10 mg given yesterday - PRN: oxy 10mg q6h x2, IV fent x 0 past 24 hours - BM: 0 bowel movement for past 72 hours. Scheduled polyethylene glycol as bowel regimen. Objective: BP: 97/73 Temp: 37.2 ?C (99 ?F) Temp src: Oral Pulse: 78 Resp: 18 O2 Therapy: Room Air SpO2: 100 % Physical Exam GENERAL: Alert, no distress, cooperative SKIN: Unable to assess, patient declined. Previously seen: R and L anterior and posterior chest wounds - chronic, bleeding, no purulent discharge. Right flank/back chronic wounds. Images scanned in chart. LUNGS: Lungs clear to auscultation bilaterally, no wheezes or crackles. CARDIAC: Regular rate and rhythm. No murmurs. ABDOMEN: Distended, non-tender. EXTREMITIES: No pitting edema on lower extremities bilaterally. Pertinent Labs: INR: 2.6(goal of 2.5-3.5), BUN: , Cr: , Hgb: 8.7 Lines, Drains, and Airways Line Duration Peripheral 04/26/25 2[facility] Right Forearm 20 Gauge 10 days Dialysis / Apheresis Double Lumen 04/29/25 1005 [facility] Tunneled Right Internal Jugular 7 days Active Hospital Problems Diagnosis Bleeding from open wound of chest wall, right, initial encounter Second degree AV block, Mobitz type I Vitamin C deficiency Vitamin A deficiency Vitamin B6 deficiency Skin ulcers (HCC) Hypervolemia Difficult intravenous access Consult IR prior to removal of any catheters Bleeding from wound Open chest wound, right, sequela Unknown etiology Open chest wound, left, sequela Unknown etiology Back wound, unspecified laterality, sequela - Mid Back - Unknown Etiology - POA - Right Upper Back - Unknown Etiology - POA Open wound of abdomen Unknown Etiology Open wound of right thigh Unknown Etiology Wounds, multiple Anemia due to multiple mechanisms Hemorrhage from open wound of left chest wall Ulcers, venous (HCC) Status post Maze operation for atrial fibrillation 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 Acquired hypothyroidism Adjustment disorder with depressed mood Acute on chronic blood loss anemia Supratherapeutic INR S/P MVR (mitral valve replacement) History: MR Assessment: 08/21/2021: OnX + posterior mitral annulus patch with bovine pericardial + Left CryoMAZE + Left atrial appendage ligation Plan: ASA, start Coumadin 08/24, hep gtt Vitamin D deficiency History of non-ST elevation myocardial infarction (NSTEMI) ESRD on hemodialysis (HCC) Atrial fibrillation (HCC) on Coumadin and Amiodarone Secondary hyperparathyroidism, renal (HCC) Reportedly elevated PTH High PhxCa ratio in the past Now with worsening metastatic calcifications Will recheck Ca, PO4, Vitamin D, and PTH Continue phosphate binders If PTH elevated, ? Need to calcimemtics to suppress the PTH Will discuss further with the nephrology team MEDICATIONS Current Facility-Administered Medications Medication Dose Route Frequency NaCl 0.9% iv flush bag 20 mL INTRAVENOUS PRN acetaminophen 650 mg tab(s) (TYLENOL) 650 mg ORAL q 6 H PRN aspirin 81 mg chewable tab(s) 81 mg ORAL DAILY midodrine 20 mg tab(s) (PROAMATINE) 20 mg ORAL q 8 H cinacalcet 60 mg tab(s) (SENSIPAR) 60 mg ORAL DAILY iv contrast (radiology procedure) INTRAVENOUS DIRECTED PRN sevelamer carbonate 800 mg tab(s) (RENVELA) 800 mg ORAL TID w MEALS oxyCODONE IR 10 mg tab(s) (ROXICODONE) 10 mg ORAL q 6 H PRN polyethylene glycol 3350 17 g packet 17 g ORAL DAILY calcitriol 1.5 mcg cap(s) (ROCALTROL) 1.5 mcg ORAL - LORazepam 0.25 mg tab(s) (ATIVAN) 0.25 mg ORAL DAILY PRN heparin iv infusion 25,000 units in NaCl 0.45% 250 mL LOW DOSE/ACS NOMOGRAM 0-3,000 Units/hr INTRAVENOUS CONTINUOUS And heparin RATE CHANGE bolus 1,000-4,000 Units for subtherapeutic PTTAC results 1,000-4,000 Units INTRAVENOUS PRN fentaNYL 50 mcg/mL 25 mcg injection (SUBLIMAZE) 25 mcg INTRAVENOUS DAILY PRN warfarin order for discharge OTHER PRN ascorbic acid 500 mg chewable tab(s) 500 mg ORAL DAILY pyridoxine (vitamin B6) 50 mg tab(s) (VITAMIN B6) 50 mg ORAL DAILY vitamin A 10,000 Units cap(s) (AQUASOL A) 10,000 Units ORAL DAILY sodium chloride 0.9 % (flush) 2-10 mL (BD POSIFLUSH) 2-10 mL INTRAVENOUS DIRECTED PRN And perflutren lipid microspheres 1.1 mg/mL 1.3 mL injection (DEFINITY) 1.3 mL INTRAVENOUS DIRECTED PRN Labs: CBC: Recent Labs 05/06/25 0856 05/05/25 1813 05/05/25 0551 05/04/25 0405 05/03/25 0628 05/01/25 0453 04/30/25 1248 WBC 6.39 -- 5.68 5.69 6.05 5.61 5.45 HB 7.9* 9.5* 8.4* 9.6* 8.3* 8.5* 9.7* HCT 26.0* 32.0* 28.0* 31.5* 27.4* 28.7* 32.5* PLT 194 -- 223 240 259 307 343 MCV 93.2 -- 92.7 94.3 92.6 94.1 91.8 RDWCV 20.1* -- 19.9* 20.0* 19.8* 19.5* 19.4* COAG: Recent Labs 05/06/25 2243 05/06/25 1534 05/06/25 0856 05/05/25 0552 05/04/25 0406 05/03/25 0628 05/02/25 1720 05/02/25 0922 05/02/25 0216 05/01/25 1312 05/01/25 0453 04/30/25 2005 04/30/25 1248 APTT 55.4* 80.1* 69.8* 60.1* 55.8* 58.5* 60.0* 62.6* 44.1* < > 37.4* < > 36.8* INR -- -- 2.3* 1.9* 1.9* 1.7* -- -- 1.8* -- 1.8* -- 2.2* < > = values in this interval not displayed. BMP: Recent Labs 05/06/25 0856 05/05/25 0551 05/04/25 0406 05/03/25 0628 05/02/25 0216 05/01/25 0453 04/30/25 1248 GLUC 90 93 109* 72* 76 83 78 NA 138 137 136 136 136 137 136 K 4.7 4.3 5.0 4.3 5.1 4.8 4.8 CHLOR 96* 94* 93* 94* 93* 93* 92* CO2 26 28 24 26 23 27 25 ANION 16* 15 19* 16* 20* 17* 19* BUN 32* 21 34* 23 41* 31* 17 CREAT 7.53* 5.29* 7.02* 5.64* 8.39* 6.66* 5.21* CHEM: Recent Labs 05/06/25 0856 05/05/25 0551 05/04/25 0406 05/03/25 0628 05/02/25 0216 05/01/25 0453 04/30/25 1248 ALB 3.4* 3.4* 3.7* 3.4* 3.5* 3.6* 3.8* CA 7.7* 8.1* 7.7* 7.8* 7.5* 7.8* 8.6 MG -- 2.2 -- -- -- -- -- HEPATIC: No results for input(s): ALKPHOS, ALT, AST, TBILI, LIPASE in the last 168 hours. URINALYSIS:No results for input(s): PH, SPGR, UGLUC, UBILI, UKET, UHB, UPROT, UROBIL, UWBC, SSA in the last 168 hours. Invalid input(s): NITR CARDIAC: No results for input(s): CKTEST, CKMB, CKMBP, TROPT, PBNP in the last 168 hours. MICROBIOLOGY: Positive Micro-30 Days No results found for the last 720 hours. Imaging: Transthoracic echocardiogram 05/06/25: EF: 60%, left ventricular hypertrophy, right ventricle normal, trace tricuspid valve regurgitation, trace pulmonic valve regurgitation, no pericardial effusion, aorta normal in size CXR 04/21/25: TDC with tip in RA. Increase of perihilar and basilar opacities with volume loss, suggesting atelectasis, possible underlying edema/inflammation. Blunting of L CP angle, which may represent tiny effusion or pleural thickening. CT A/P 04/22/25: No abdominal or pelvic subcutaneous fluid collection of gas. Redemonstrated diffuse subcutaneous extensive abdominal wall collaterals, similar to prior CTA 10/17/2024. CT chest 04/22/25: extensive chest wall collaterals, few areas of skin ulceration, no areas of drainable fluid collection. Findings consistent with central venous stenoses. Few patchy groundglass opacities, may be related to mild pulm edema Assessment AND Plan: Elia Weston is a 45 year old male with extensive PMH, significant for ESRD on HD (MWF) last session 04/18 (skipped Friday since he came to ED), CAD s/p CABG, severe MS s/p MVR on Warfarin, pAfib s/p maze procedure and RADHA clip and chronic chest/abdominal/back wounds (3 years) likely secondary to ischemia in context of SVC syndrome and multiple thrombosis, who presented to the ED with 1-day of left chronic chest wound bleeding. Admitted for management of bleeding, and on transfer to [facility], patient began to have significant bleeding from R chest wound. Continuous pressure was applied and bleeding stopped. Now s/p FFP and RBC transfusions as appropriate. Initially started on Vanc/Zosyn given elevated ESR/CRP and WBC, no infectious concern on further imaging with improved lactate WBC, so abx were stopped. Dermatology and wound care consulted. IR consulted, planning for venoplasty given INR reversal. 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 Hx of hemorrhagic shock from bleeding abdominal wounds - presenting with acute worsening of pain and bleeding from wounds. Denies purulent discharge from wounds. - Leukocytosis + Elevated CRP 22.1 and ESR 133 + Elevated lactate on presentation; concerned for infected wounds/soft tissue infection. Started on IV vanc/zosyn, later d/janie due to low infectious concern (04/21-04/25) - On admission, acute rise in lactate in light of acute significant bleeding and drop in HGB (8.6 from 9.5 in ED) likely secondary to hypovolemia, also missed dialysis - CT venogram on 10/19/24 with b/l brachiocephalic stenosis w b/l subclavian vein occlusion, extensive venous collaterals - 10/22/24: Venoplasty completed by IR, removed L femoral TDC, exchanged R TDC - blood cultures 04/20/25 with NG5D x2 - AMET for hypotension 80/50, s/p 500 cc LR bolus, scheduled midodrine with improved repeat 102/63 - lactate 2.4 from 1.7, improved from 3.2 at admission. Completed 5d course of IV vanc/zosyn (04/21-04/25) - CT chest and CT A/P 04/22/25 with no drainable fluid collections, extensive chest collaterals - nutritional workup: B12 elevated, folate wnl, iron low 26, TIBC low 137, trans sat wnl, low vit D 22.9, zinc 69 wnl, low vit A 0.10 - 04/29/25: Venoplasty: completed by IR. 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 Right upper chest tunneled dialysis catheter was exchanged over a wire for a new on; ready for use PLAN: - IR consulted: > venoplasty 04/29/2025 - no complications - Derm consulted: > ongoing nutritional workup > discontinued clobetasol 0.05% ointment BID per derm, lesion over R scapula, try to simulate tx of PG and assess response > [facility] Derm f/u outpatient - continue vitamin D supplement 5000 unit(s), ascorbic acid 500mg/day, vit B6 50mg/day, vit A 10,000 units/day - wound care team consulted, appreciate care - pain control: tylenol 650 mg q6h prn and oxycodone 10 mg po q6h PRN. > IV fent for dressing changes as needed - plastic surgery consulted: > no indication for surgical intervention at this time - Cautious fluid resuscitation in light of acute bleeding and ESRD anuric on HD - Chest wound dressings to be changed every day #Supratherapeutic INR #CAD s/p CABG #Severe MS s/p mechanical MVR on coumadin #Paroxysmal Afib s/p multiple DCCV s/p Maze procedure + RADHA clip (07/2021) - atrial fibrillation and severe mitral stenosis s/p mechanical mitral valve replacement with On-x valve (INR goal 2.5-3.5), Maze procedure and RADHA clip on 08/21/2021. - Goal INR 2.5- 3.5; on warfarin 2.5 mg daily although patient not sure of dose, has been changed recently; last dose of warfarin Thursday 04/19 - INR elevated to 5.1 on admission, improved to 3.9 s/p 2u FFP 04/21 - possible etiology of supratherapeutic INR: warfarin dose (given patient not sure of home dose) vs malnutrition vs liver disease (less likely given AST/ALT wnl) - INR elevated again to 5.3, patient received po vitamin K 5 mg 04/25. Improved to 1.7 - INR 2.6 on 05/07/25 PLAN: - given subtherapeutic INR and no intervention by plastic surgery planned, continue bridging to warfarin > goal INR 2.5 - 3.5, given mechanical valve. - discontinue heparin gtt and give Warfarin 10mg - Daily INR - Follows with Dr. Moreno (cardiology in [place]) for mgmt of Coumadin, will need follow-up outpatient # Second-degree AV Block - Patient having multiple episodes of bradycardia in the hospital with low blood pressures - Magnesium level 2.2 (05/05/25) - EKG (05/05/25) shows Second degree AV block, mobitz type 1 - EKG (05/06/25): shows sinus rhythm with 2nd degree AV shantell, mobitz type 1 - Transthoracic echocardiogram 05/06/25: EF: 60%, left ventricular hypertrophy, right ventricle normal, trace tricuspid valve regurgitation, trace pulmonic valve regurgitation, no pericardial effusion, aorta normal in size PLAN: - Cardiology team consulted, appreciate recs - Echocardiogram completed, results as above - Consult with electrophysiology team for possible intervention (team not available on the weekends, will likely see her Friday but should call them on Friday as well) #Constipation - Last recorded bowel movement was on 05/03/25 PLAN: - Polyethylene glycol daily - Start Senna BID #ESRD on HD via Right TDC #Chronic Hypotension #Secondary 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 - iHD at [facility] through R. Tunneled HD catheter MWF - Last dialysis session Friday04/18/2025; missed Fri session because he presented to [facility] ED - anuric at baseline per patient - Serum P=9.7 - completed HD 04/21, now on MWF - PTH elevated 578, Ca 8.3 low PLAN: - nephrology consulted: > continue MWF HD schedule > continue calcitriol MWF - Continue Sensipar, renvela with meals - continue home Midodrine 20mg every 8 hours #Anemia of Chronic Disease/ESRD - Baseline hemoglobin 9-11 - iron studies 12/2024: iron 33, TIBC 156, Iron sat 21, ferritin 1327 - Hgb dropping iso bleeding wounds, as above. - received 1u pRBC 04/21, Hgb from 7.3 -> 7.7 post-transfusion - Hgb 6.9 on 04/22, s/p additional 2u pRBC with Hgb in ~8s PLAN: - Hgb goal >8, 8.7 this am - chronic wound mgmt, as above #Code status - Full # Diet - renal # VTE PPx - warfarin # Dispo Planning - Pending clinical course, SW consulted for recent unemployment, c/f food insecurity These recommendations and plan are not final until co-signed by the attending physician Sana Mir MD. Giovanna Chowdhury DO PGY-1 Neurology Attending Note I evaluated the patient and personally participated in the mendoza components. I agree with the resident's findings and plan as documented and have discussed the case and management of the patient's care with the resident. 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 Chest wall wound bleeding has resolved. Seen by derm and plastic surgery. No further intervention at this time. Pain control. Needs daily dressing changes. On IHD MWF. Underwent balloon angioplasty of R innominate vein stenosis and R TDC exchange on 04/29 with vascular surgery. Next dialysis on Friday. Has been bridged back to warfarin with heparin gtt, INR 2.6 today. Managed by outpatient parts delivery driver in [place]. 05/06 noted to have Mobitz 1 with very prolonged DE interval. Echo obtained and has limited views but is largely stable. Cardiology is recommending EP evaluation. EP cannot see until Friday. Plan for EP eval on Friday as well as IHD. DC pending EP recs. Sana Mir MD Associate Staff [facility] Medicine PROGRESS Observed: 05/07/2025 2:22 AM Status: COMPLETED Source: [facility] HNO ID: [id number] Author: NOTE, INTERFACE, ? Service: ? Author Type: ? Type: Progress Notes Filed: 05/07/2025 15:49 Note Text: Epic Scheduled Downtime: 05/07/2025 1:00:00 AM to 05/07/2025 2:17:00 AM PTT, ANTICOAGULANT THERAPY Collected: 0 05/06/2025 10:43 PM Status: F Source: [facility] Order Comment: Specimen Type : BLOOD SPECIMEN Ordering Facility: [facility] Address: [address] [place] [address] TYPE CODE TESTS RESULT OUT OF RANGE REFERENCE UNITS LAB 68480-5(LOINC) aPTT PPP 55.4 High 23.0-32.4 sec Performed By: #### PTTAC ### # [facility] CLIA [id number] [address] [place], [place] [id number] [place] [address] [place] [facility] Observed: 05/06/2025 9:47 PM Status: COMPLETED Source: [facility] HNO ID: [id number] Author: CURTIS HARRIS RN Service: Nursing Author Type: Registered Nurse Type: Nursing Progress Note Filed: 05/06/2025 21:48 Note Text: Summary: Woundcare 2147-pt requests to have woundcare done tomorrow. 05/07/25. ECHO Observed: 05/06/2025 3:50 PM Status: F Source: [facility] Echocardiography Report: Tra nsthoracic Echo [facility] [place] Bedside Date of service: 05/06/2025 3:50:06 PM TENDER Ordering physician: ANA DALEY Exam indication: Abnormal ECG Technologist: Matt Mcdaniel Interpreting physician: Rose Gamboa MD PATIENT: Name: MR. ELIA WESTON : 1980 Age: 45 years Gender: M History of hypertension, arrhythmia and chronic kidney disease. Previous cardiovascular interventions: MVR/MAZE (08/21/2021) Primary rhythm: sinus. Secondary rhythm: AV Block. Height: 177.00 cm BSA: 2.39 m Weight: 115.90 kg BMI: 37.0 kg/m Heart rate 55 bpm Blood pressure 108/63 mmHg Technically difficult exam due to bandages/chest tubes/wound and suboptimal positioning. Color Doppler was utilized to interrogate the cardiac valves assessed and spectral Doppler was utilized to determine the flow velocities and pressure gradients reported in this exam. MEASUREMENTS: Value Indexed Normal Max aortic dimension 3.2 cm Ao < 3.8 LV ID (diastole) 3.4 cm (2D) 1.41 cm/m LV ID (systole) 1.9 cm (2D) 0.80 cm/m IVS, leaflet tips 1.4 cm (2D) Posterior wall thickness 1.3 cm (2D) Left ventricular mass 150 g (2D) 63 g/m Ejection Fraction 60 % (visual est.) EF > 52 FINDINGS: LEFT VENTRICLE There is left ventricular hypertrophy. Left ventricular systolic function is normal. Left ventricular diastolic function was not evaluated due to inconsistent or technically suboptimal data. RIGHT VENTRICLE The right ventricle is normal in size. Right ventricular systolic function is normal. MITRAL VALVE Post mitral valve replacement. On-X prosthetic valve size #25. TRICUSPID VALVE There is trace tricuspid valve regurgitation. AORTIC VALVE There is no aortic valve regurgitation. PULMONIC VALVE There is trace pulmonic valve regurgitation. AORTA The visualized aorta is normal in size. Measurements - Sinus: 3.2 cm. Mid ascending aorta 3.0 cm. PERICARDIUM There is no pericardial effusion. There is an epicardial fat pad. CONCLUSIONS: - Technically difficult exam due to bandages/chest tubes/wound and suboptimal positioning. - Exam indication: Abnormal ECG - There is left ventricular hypertrophy. Left ventricular systolic function is normal. EF = 60 5% (visual est.) LV function appears grossly normal in limited parasternal views. - The right ventricle is normal in size. Right ventricular systolic function is normal. - Post mitral valve replacement. On-X prosthetic mitral valve (size #25). Prior gradients of 17/6 mmHg at 74 bpm. Unable to obtain MV gradients on today's exam. - Exam was compared with the prior CC echocardiographic exam performed on 07/09/2023. Limited exam with no significant changes. * * * Final * * * [facility] Image : [id number] [id number] NT Observed: 05/06/2025 3:48 PM Status: [facility]PLETED [id number] Author: RENÉE MARTINES, PT, DPT Service: Physical Therapy Author Type: Physical Therapist Type: Therapy (PT/OT/Speech/Resp) Filed: 05/06/2025 15:53 Note Text: Physical Therapy Treatment Summary SERVICE DATE: 05/06/2025 SERVICE TIME: 1525 to 1548 ROOM: [place] [address] PT 6 Clicks Score: 17 DISCHARGE RECOMMENDATIONS: Home PT - patient may progress to safe discharge home with OPPT pending progress while in house. 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 Has been sleeping in recliner 2/2 to pain. (+) driving SUBJECTIVE You know me, I'm always up to get out of bed. I'm just so exhausted. - agreeable to bed level activity/exercises. I don't think anyone's ever given me any of those before. THERAPY DIAGNOSIS Reduced mobility-other, Muscle Weakness (generalized), General symptoms and signs-other TREATMENT INTERVENTIONS Therapeutic Exercise (93412) Timed Code Treatment (minutes): 23 Skilled Treatment Time (minutes): 23 TRAINING AND EDUCATION PROVIDED Anatomy and Impact on Deficits, Discharge Planning, Exercise Program, Patient Exercise/Therapy Program Support Needs, Role of Physical Therapy, Treatment Protocol THERAPEUTIC SKILLS USED Activity Dosing, Assessment of Tolerance Including Vitals Response to Activity, Cues for Sequencing/Proper Technique for Activity, Cuing Verbal, Cuing Visual, Facilitation of Joint Range of Motion, Teach-Back for Education FUNCTIONAL STATUS Bed Mobility Supine To Sit: Contact Guard Assistance (with HOB elevation) Scooting: Contact Guard Assistance Transfers Sit To Stand: Contact Guard Assistance Stand To Sit: Contact Guard Assistance Bed to Chair Contact Guard Assistance Bed To Chair Transfer Type: Stepping Bed To Chair Transfer Equipment: (IV pole) Gait Contact Guard Assistance Gait Device: IV Pole Gait Distance (feet): 70/90 with seated rest break Stairs GOALS Patient will demonstrate progress with functional mobility to allow safe discharge to home with available support and/or physical assistance. Rehab Potential: Good ACUTE CARE TREATMENT PLAN PT Frequency: Per Next Session Date Treatment Interventions: Education, Self Care / Home Management, Energy Conservation Training, Joint Mobility, Strengthening, Functional Mobility Training, Balance Training, Neuromuscular Re-education Plan for Next Visit: Gait Training, Stair Training SIGNATURE: Renée Martines, PT, DPT PATIENT NAME: Elia Weston DATE: May 06, 2025 TIME: 3:48 PM PTT, ANTICOAGULANT THERAPY Collected: 0 05/06/2025 3:34 PM Status: F Source: [facility] Order Comment: Specimen Type : BLOOD SPECIMEN Ordering Facility: [facility] Address: [address] [place] [address] TYPE CODE TESTS RESULT OUT OF RANGE REFERENCE UNITS LAB 61307-0(LOINC) aPTT PPP 80.1 High 23.0-32.4 sec Performed By: #### PTTAC ### # [facility] CLIA [id number] [address] [place] [address] STATES [facility] CONSULT PROG Observed: 05/06/2025 12:14 PM Status: COMPLETED Source: [facility] HNO ID: [id number] Author: KIMBERLY LYNN APRN.FLORAL ASSOCIATE Service: Wound Care Team Author Type: Nurse Practitioner Type: Consult Progress Note Filed: 05/06/2025 12:22 Note Text: Wound Care Consult Team Assessment Note: PATIENT NAME: Elia Weston WCCT attempted to see patient to follow up on wounds today at 1011, patient is out of room at dialysis at this time. Spoke with patient's nurse for today, RN has not yet seen the wounds as he has been at dialysis today however she was told in report that the wounds were improving. Did stop into dialysis on 05/04 to see patient however was told by shell fisherman that he could not turn for assessment of wounds, however the patient stated at that time that the wounds were improving and that he had no concerns at that time. Asked patient's bedside RN for today to take updated photos of the wounds during today's dressing changes as photos have not been updated since last WCCT visit and she was agreeable and understanding and plans to take new photos during patient's dressing changes today. Will attempt to see again at a future date. Kimberly Lynn APRN.FLORAL ASSOCIATE CONSULT Observed: 05/06/2025 12:07 PM Status: COMPLETED Source: [facility] HNO ID: [id number] Author: BORIS LUU MD Service: Cardiovascular Medicine Author Type: Resident Type: Consults Filed: 05/06/2025 13:38 Note Text: Attestation signed by Boris Luu MD at 05/06/2025 1:38 PM [facility] STAFF PHYSICIAN NOTE OF PERSONAL INVOLVEMENT IN CARE IMPRESSION AND PLAN: #2nd degree AV block type 1 # First-degree AV block #severe MS s/p mechanical mitral valve replacement(on-x) #chronic hypotension #chronic SVC occlusive disease #chronic anemia #AFIB s/p MAZE LAAL #CAD s/p CABG Asked to see this 45-year-old male patient with history as above who presented with bleeding from the chest wound in the setting of supratherapeutic INR-he is on warfarin given his mechanical mitral prosthesis as well as history of A-fib. Seen in the dialysis unit this morning. Patient became quite anxious and tearful when I told him we were seeing him due to a heart conduction abnormality. He was not aware of this. EKG shows Mobitz 1 second-degree AV block and this is present on his telemetry currently as well. Very long first-degree AV delay in conduction. Significantly longer than prior EKG. Recommendations: Continue telemetry monitoring while inpatient for any evidence of higher degree AV block ECG shows low voltage QRS-could be related to body habitus but recommend TTE to exclude pericardial effusion as well as re-measure his transmitral prosthetic valve gradients TTE-need to exclude infection related to mitral valve or extension across the curtain to the aortic valve region which can cause conduction abnormality Anticoagulation in setting of mechanical mitral valve and M-vpd-Balzbv INR 2.5-3.5 On midodrine chronically for hypotension At this point given very long DE interval Mobitz 1 second-degree AV block with risk of further conduction progression as well as chronic SVC occlusive disease would like to consult our electrophysiology allergy team for planning/considerations regarding if patient were to need for pacemaker implantation. I have reviewed the documentation obtained and documented by the Resident and I have personally performed a face to face assessment of the patient and have personally participated in the mendoza components of the visit which includes medical decision making.. I have discussed the case and management of the patient's care. (Inpatient): I personally spent 45 total minutes total time in the management and care of this patient. [facility] CARDIOVASCULAR MEDICINE CONSULT NOTE (Template ID [id number]) Elia Weston [id number] PRIMARY SERVICE: Internal Medicine CONSULTING SERVICE: Cardiovascular Medicine: General Consults DATE OF ADMISSION: 04/20/2025 DATE OF CONSULT: 05/06/2025 REASON FOR CONSULT Mobitz type 1 second-degree block HISTORY OF PRESENT ILLNESS Elia Weston is a 45 year old male with MS s/p mechanical MVR c/b CHB (resolved without PPM), CAD s/p CABG, atrial fibrillation s/p maze procedure and RADHA clip, ESRD on HD ([facility]), SVC syndrome, and multiple thromboses who was admitted due to acute bleeding from a chronic chest wound in the setting of supratherapeutic INR. Cardiology is consulted regarding Mobitz type 1 second-degree block. On my interview, patient states he is able to ambulate to the bathroom and back to the bed without experiencing dizziness, shortness of breath, or chest pain. PAST MEDICAL HISTORY PAST MEDICAL HISTORY Diagnosis Date Anemia of chronic disorder Anuria Atrial fibrillation ([facility]) 12/02/2018 on Coumadin and Amiodarone BMI 40.0-44.9, adult ([facility]) ESRD (end stage renal disease) on dialysis ([facility]) 2005 ESRD from HTN Dialysis M,[facility] [phone] Essential hypertension, benign 1998 EKG 09/30 NL. Hearing loss of both ears History of mitral valve stenosis Hx of bacterial endocarditis 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 due to end stage renal disease on dialysis ([facility]) Kidney disease 2005 ESRD due to HTN; on IHD since 2005 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 and scoliosis h/o this 3 y. Dx by xray. Mechanical complication of arteriovenous fistula surgically created ([facility]) Mechanical complication of dialysis catheter ([facility]) Mitral valve disease Morbid obesity ([facility]) MS (mitral stenosis) 10/08/2018 Transesophageal US YEIMY on CPAP Paroxysmal atrial fibrillation ([facility]) PE (pulmonary thromboembolism) ([facility]) Pelvic mass Pseudoaneurysm of AV hemodialysis fistula ([facility]) Wound of right side of back from friction/rubbing of jacket, goes to wound care center in [place] PAST SURGICAL HISTORY Procedure Laterality Date ARTERIOVENOUS FISTULA Left 08/29/2010 CAPSULE ENDOSCOPY 07/01/2023 CARDIOVERSION-ELECTIVE N/A 12/03/2018 200 joules synchronized - successful COLONOSCOPY 07/01/2023 EGD 06/27/2023 HERNIA REPAIR HX PAST SURGICAL HISTORY OF 08/29/2010 dialysis fistula left arm PAST SURGICAL HISTORY OF Right 03/2019 Right leg femoral vein to superficial femoral artery loop graft mid thigh REPAIR CLEFT LIP RMVL LEANN CVC W/O SUBQ PORT/TOBACCO PREVENTION HEALTH EDUCATOR 01/17/2013 SHX CARDIAC RADIOFREQUENCY ABLATION 08/21/2021 s/p Maze procedure SHX MITRAL VALVE REPLACEMENT 08/21/2021 FAMILY HISTORY FAMILY HISTORY Adopted: Yes Problem Relation Age of Onset None Mother None Father Aneurysm No Family History SOCIAL HISTORY Social History Tobacco Use Smoking status: Never Smokeless tobacco: Never Vaping Use Vaping status: Never Used Substance Use Topics Alcohol use: No Drug use: No HOME MEDICATIONS aspirin 81 mg chewable tabletTake 81 mg by mouth.Disp: Rfl: cinacalcet (SENSIPAR) 60 mg tabletTake 1 tablet by mouth once daily.Disp: Rfl: calcitriol (ROCALTROL) 0.5 mcg capsuleTake 3 capsules by mouth every Friday, Friday, and Friday.Disp: Rfl: B Complex-Vitamin C-Folic Acid (JOHNSON-BRENDA) 0.8 mg tabTake 1 tablet by mouth once daily.Disp: Rfl: midodrine (PROAMATINE) 10 mg tabletTake 2 tablets by mouth every 8 hours.Disp: 180 tabletRfl: 11 melatonin 3 mg tabletTake 3 tablets by mouth daily at bedtime.Disp: Rfl: warfarin (COUMADIN) 2.5 mg tabletTake 1 tablet by mouth once daily.Disp: Rfl: Darbepoetin Osito In Polysorbat (ARANESP) 60 mcg/0.3 mL syrgInject 0.3 mL subcutaneously every Friday.Disp: Rfl: (Patient not taking: Reported on 01/25/2025) sodium zirconium cyclosilicate (LOKELMA) 10 gram oral packetTake 1 Packet by mouth once daily. Mix powder in 45 mL of water, stir and drink immediately.Disp: Rfl: (Patient not taking: Reported on 01/25/2025) sevelamer carbonate (RENVELA) 800 mg tabletTake 3 tablets by mouth three times a day with meals.Disp: Rfl: (Patient not taking: Reported on 01/25/2025) polyethylene glycol 3350 (MIRALAX) 17 gram packetTake 1 Packet by mouth once daily. Dissolve dose in 4 - 8 ounces of liquid and take as directed.Disp: 60 EachRfl: 0 oxyCODONE IR (ROXICODONE) 10 mg tabTake 10 mg by mouth every 8 hours as needed for pain.Disp: Rfl: INPATIENT MEDICATIONS Current Facility-Administered Medications Medication Dose Route Frequency NaCl 0.9% iv flush bag 20 mL INTRAVENOUS PRN acetaminophen 650 mg tab(s) (TYLENOL) 650 mg ORAL q 6 H PRN aspirin 81 mg chewable tab(s) 81 mg ORAL DAILY midodrine 20 mg tab(s) (PROAMATINE) 20 mg ORAL q 8 H cinacalcet 60 mg tab(s) (SENSIPAR) 60 mg ORAL DAILY iv contrast (radiology procedure) INTRAVENOUS DIRECTED PRN sevelamer carbonate 800 mg tab(s) (RENVELA) 800 mg ORAL TID w MEALS oxyCODONE IR 10 mg tab(s) (ROXICODONE) 10 mg ORAL q 6 H PRN polyethylene glycol 3350 17 g packet 17 g ORAL DAILY calcitriol 1.5 mcg cap(s) (ROCALTROL) 1.5 mcg ORAL -WE LORazepam 0.25 mg tab(s) (ATIVAN) 0.25 mg ORAL DAILY PRN heparin iv infusion 25,000 units in NaCl 0.45% 250 mL LOW DOSE/ACS NOMOGRAM 0-3,000 Units/hr INTRAVENOUS CONTINUOUS And heparin RATE CHANGE bolus 1,000-4,000 Units for subtherapeutic PTTAC results 1,000-4,000 Units INTRAVENOUS PRN fentaNYL 50 mcg/mL 25 mcg injection (SUBLIMAZE) 25 mcg INTRAVENOUS DAILY PRN warfarin order for discharge OTHER PRN ascorbic acid 500 mg chewable tab(s) 500 mg ORAL DAILY pyridoxine (vitamin B6) 50 mg tab(s) (VITAMIN B6) 50 mg ORAL DAILY vitamin A 10,000 Units cap(s) (AQUASOL A) 10,000 Units ORAL DAILY warfarin 10 mg tab(s) (COUMADIN) 10 mg ORAL ONCE - WARFARIN ALLERGIES ALLERGIES Allergen Reactions Gabapentin Unknown, Other: See Comments Trazodone Other: See Comments Fidgety COMPLETE REVIEW OF SYSTEMS Constitutional: No weight loss, malaise or fevers. HEENT: Negative for frequent or significant headaches Respiratory: Negative for cough, wheezing, or shortness of breath Cardiovascular: Negative for chest pain or palpitations. Leg swelling present. Gastrointestinal: Negative for abdominal discomfort, blood in stools or black stools or change in bowel habits Genitourinary: No history of dysuria, frequency, or incontinence Endocrine: Negative for cold or heat intolerance, polyuria, polydipsia and goiter Hematologic: Acute bleed from chronic chest wound on presentation; not actively bleeding currently. Neurologic: No history or headaches, syncope, paralysis, seizures or tremors Integumentary: Chronic wound on chest PHYSICAL EXAM BP 108/63 Pulse (!) 52 Temp 36.8 ?C (98.2 ?F) (Oral) Resp 16 Wt 115.9 kg (255 lb 8.2 oz) SpO2 99% BMI 36.99 kg/m? General Appearance: Lying supine on bed with CPAP mask on HEENT: No lesions Lungs: Clear Heart: High-pitched midsystolic click, otherwise no rubs, murmurs, gallops. Abdomen: Soft and Non-tender Skin: Clean dressing over chest Musculoskeletal: No deformities, pitting edema over holley bilaterally Neurologic/Psychiatric: Oriented to time, place AND person DATA Laboratory: Recent Labs 05/06/25 0856 05/05/25 1813 05/05/25 0551 05/04/25 0405 WBC 6.39 -- 5.68 5.69 HB 7.9* 9.5* 8.4* 9.6* HCT 26.0* 32.0* 28.0* 31.5* PLT 194 -- 223 240 Recent Labs 05/06/25 0856 05/05/25 0551 05/04/25 0406 NA 138 137 136 K 4.7 4.3 5.0 CO2 26 28 24 BUN 32* 21 34* CREAT 7.53* 5.29* 7.02* GLUC 90 93 109* MG -- 2.2 -- Recent Labs 05/06/25 0856 05/05/25 0552 05/04/25 0406 APTT 69.8* 60.1* 55.8* INR 2.3* 1.9* 1.9* Cholesterol, Total (mg/dL) Date Value 11/08/2021 218 Total Cholesterol, Nonfasting (mg/dL) Date Value 06/12/2023 177 HDL Cholesterol (mg/dL) Date Value 11/08/2021 58 HDL Cholesterol, Nonfasting (mg/dL) Date Value 06/12/2023 41 LDL Cholesterol, Calculated (mg/dL) Date Value 11/08/2021 142 LDL Cholesterol Calculated, Nonfasting (mg/dL) Date Value 06/12/2023 113 Triglyceride (mg/dL) Date Value 11/08/2021 92 Triglycerides, Nonfasting (mg/dL) Date Value 06/12/2023 113 Hemoglobin A1C (%) Date Value 06/12/2023 5.3 08/04/2021 5.2 EKG (05/05/2025): Chest Radiograph (04/21/2025): Echocardiogram (07/09/2023): CONCLUSIONS: - Technically difficult exam due to body habitus and suboptimal positioning. - Exam indication: Initial evaluation of infective endocarditis with positive blood cultures - The left ventricle is normal in size. There is mild concentric left ventricular hypertrophy. Left ventricular systolic function is normal. EF = 64 ? 5% (2D biplane) Definity contrast used for endocardial border detection. - The right ventricle is normal in size. Right ventricular systolic function is normal. - On-X prosthetic mitral valve (size #25). The peak gradient is 17 mmHg and the mean gradient is 6 mmHg. Today gradients at 74bpm. Prior MV pk/mn gradient of 14/6mmHg. Unable to determine evaluate for MR do to shadowing of prosthetic valve. - There is moderate (2+) tricuspid valve regurgitation. - Estimated right ventricular systolic pressure is 36 mmHg consistent with mild pulmonary hypertension. Estimated right atrial pressure is 8 mmHg based on IVC assessment. - Recommend YONATHAN to better assess MVR for endocardits. Stress Testing: N/A Cardiac Catheterization (2020): No obstructive CAD General HEMO: 1 1 1 1 1 Condition # Site Right Right Main Pulmonary Aorta Atrium Ventricle Pulmonary Capillary Wedge Artery Systolic A Wave 18 mmHg 60 mmHg 61 mmHg 46 mmHg 89 mmHg Diastolic V Wave 17 mmHg 19 mmHg 41 mmHg 40 mmHg 59 mmHg ED/Mean 16 mmHg 50 mmHg 42 mmHg 76 mmHg Other Radiology: N/A ASSESSMENT Elia Weston is a 45 year old male with ESRD on HD (MWF), CAD s/p CABG, severe MS s/p mechanical MVR on warfarin, atrial fibrillation s/p maze procedure and RADHA clip, SVC syndrome, and multiple thromboses who was admitted due to acute bleeding from a chronic chest wound in the setting of supratherapeutic INR. Cardiology is consulted regarding Mobitz type 1 second-degree block. His past medical history is notable for post-operative CHB after mitral valve replacement (2020). On chart review, the block resolved to first-degree AVB and sinus rhythm without requiring PPM. More concerning is the chronic DE prolongation to 300-400 ms also present on prior EKGs though he denies symtoms. The etiology of the block is unclear but includes structural/valvular disease and ischemic heart disease. Perivalvular abscess is possible given initial concern for infection on presentation but appears less likely with his negative infectious disease workup so far. He is not currently on any lala blocking agents. Would recommend echocardiography to parse out these etiologies and EP consult for further recommendation. Could also check TSH/T4 given patient's history of hypothyroidism, though this does not appear to be a major contributor to patient's heart block at this time. RECOMMENDATIONS - TTE - Consult to EP - Continue telemetry - Check TSH/T4 - Avoid lala blockers if able Case to be discussed with staff Dr. Boris Luu. Pravin Kelly, MS-4 05/06/2025 7:39 AM Resident attestation of medical student note: See excellent note written by medical student above. 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 We are consulted for bradycardia and heart block. Looking in chart, post MVR 2020, he was in CHB with junctional escape rhythm that has recovered AV conduction, progressing from CHB to Mobitz type I second degree AV block. He was discharged with 1st degree block with very prolonged DE 350. He has multiple EKG in 2021- with NSR. EKG on this admission 04/21 with accelerated junctional rhythm. Given bradycardia, an EKG done yesterday showed Mobitz 1 with very prolonged DE. Patient confirms he is asymptomatic, denying dyspnea, dizziness, presyncope, and syncope, although he is not a very reliable historian. Vitals: BP: 108/63 Temp: 36.8 ?C (98.2 ?F) Temp src: Oral Pulse: 52 Resp: 16 O2 Therapy: Room Air SpO2: 99 % Physical: General: well appearing, no distress CVS: RRR, godfrey extra heart sounds. Mild LE swelling Pulm: Normal lung sounds, on CPAP Abdomen: soft, no tenderness or distention Extremities: mild LE edema Neuro: Intact Objective: LABS: CBC: Recent Labs 05/06/25 0856 05/05/25 1813 05/05/25 0551 05/04/25 0405 05/03/25 0628 05/01/25 0453 04/30/25 1248 04/29/25 1434 WBC 6.39 -- 5.68 5.69 6.05 5.61 5.45 5.75 HB 7.9* 9.5* 8.4* 9.6* 8.3* 8.5* 9.7* 9.7* HCT 26.0* 32.0* 28.0* 31.5* 27.4* 28.7* 32.5* 32.5* PLT 194 -- 223 240 259 307 343 298 MCV 93.2 -- 92.7 94.3 92.6 94.1 91.8 92.6 RDWCV 20.1* -- 19.9* 20.0* 19.8* 19.5* 19.4* 19.2* BMP: Recent Labs 05/06/25 0856 05/05/25 0551 05/04/25 0406 05/03/25 0628 05/02/25 0216 05/01/25 0453 04/30/25 1248 04/29/25 1434 GLUC 90 93 109* 72* 76 83 78 110* NA 138 137 136 136 136 137 136 135* K 4.7 4.3 5.0 4.3 5.1 4.8 4.8 5.2* CHLOR 96* 94* 93* 94* 93* 93* 92* 95* CO2 26 28 24 26 23 27 25 22 ANION 16* 15 19* 16* 20* 17* 19* 18* BUN 32* 21 34* 23 41* 31* 17 26* CREAT 7.53* 5.29* 7.02* 5.64* 8.39* 6.66* 5.21* 7.29* CARDIAC IMAGING: EKG: TTE: CONCLUSIONS: - Technically difficult exam due to body habitus and suboptimal positioning. - Exam indication: Initial evaluation of infective endocarditis with positive blood cultures - The left ventricle is normal in size. There is mild concentric left ventricular hypertrophy. Left ventricular systolic function is normal. EF = 64 ? 5% (2D biplane) Definity contrast used for endocardial border detection. - The right ventricle is normal in size. Right ventricular systolic function is normal. - On-X prosthetic mitral valve (size #25). The peak gradient is 17 mmHg and the mean gradient is 6 mmHg. Today gradients at 74bpm. Prior MV pk/mn gradient of 14/6mmHg. Unable to determine evaluate for MR do to shadowing of prosthetic valve. - There is moderate (2+) tricuspid valve regurgitation. - Estimated right ventricular systolic pressure is 36 mmHg consistent with mild pulmonary hypertension. Estimated right atrial pressure is 8 mmHg based on IVC assessment. - Recommend YONATHAN to better assess MVR for endocardits. - Exam was compared with the prior CC echocardiographic exam performed on 11/08/2021. TR appears more prominent, otherwise similar findings. 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 We are consulted for bradycardia and heart block. Pertinent Problem List Bradycardia Prolonged DE interval >400 msec Mobitz Type 1 History of CHB post-op He has previous post-op MVR CHB that improved to 1st degree with very long DE before discharge. He had intermittent EKG in the interim 2021-09/2024 alternating between NSR and 1st degree AV block. EKG on admission concerning for accelerated junctional rhythm and one done yesterday showed very prolonged DE intervals and Mobitz 1. Although he reports no symptoms, including no dizziness and syncope, it is worth noting that this is in context of being on midodrine 20q8 for chronic hypotension. There is also the concern for chest wall infection on admission and although no further clinical signs of infection, it is worth obtaining an echocardiogram to rule out structural AV lala damage, possible (although unlikely) skye-lala abscesses (history of endocarditis?), and worsening MV disease. Given his very long DE interval >400 msec, recommends EP evaluation. RECOMMENDATIONS Recommend EP consult given very prolonged DE interval and Hx of block Obtain echocardiogram to rule out structural etiologies of prolonged DE interval and heart block Update TSH and T3, T4 levels Thank you for this consult. Case discussed with staff Dr Luu. Michael Jacinto MD PGY-2 Internal Medicine Resident CONSULT PROG Observed: 05/06/2025 11:06 AM Status: COMPLETED Source: [facility] ID: [id number] Author: LUCILLE GOMEZ APRN.MIKI Service: Nephrology Author Type: Nurse Practitioner Type: Consult Progress Note Filed: 05/06/2025 11:11 Note Text: CONSULT PROGRESS NOTE NEPHROLOGY Q6 SERVICE SERVICE DATE: 05/06/2025 SERVICE TIME: 11:07 AM SUBJECTIVE INTERVAL HISTORY: - ESRD Patient seen on dialysis, single evaluation. Orders confirmed and documented per LEONEL. On heparin gtt. INR nearing goal range. Chronically on Supplemental O2. UOP unmeasured -Patient tolerating dialysis well -Denies any chest pain, shortness of breath or dizziness -Denies any nausea, vomiting, muscle aches or headaches MEDICATIONS: Current Facility-Administered Medications Medication Dose Route Frequency NaCl 0.9% iv flush bag 20 mL INTRAVENOUS PRN acetaminophen 650 mg tab(s) (TYLENOL) 650 mg ORAL q 6 H PRN aspirin 81 mg chewable tab(s) 81 mg ORAL DAILY midodrine 20 mg tab(s) (PROAMATINE) 20 mg ORAL q 8 H cinacalcet 60 mg tab(s) (SENSIPAR) 60 mg ORAL DAILY iv contrast (radiology procedure) INTRAVENOUS DIRECTED PRN sevelamer carbonate 800 mg tab(s) (RENVELA) 800 mg ORAL TID w MEALS oxyCODONE IR 10 mg tab(s) (ROXICODONE) 10 mg ORAL q 6 H PRN polyethylene glycol 3350 17 g packet 17 g ORAL DAILY calcitriol 1.5 mcg cap(s) (ROCALTROL) 1.5 mcg ORAL -WE- LORazepam 0.25 mg tab(s) (ATIVAN) 0.25 mg ORAL DAILY PRN heparin iv infusion 25,000 units in NaCl 0.45% 250 mL LOW DOSE/ACS NOMOGRAM 0-3,000 Units/hr INTRAVENOUS CONTINUOUS And heparin RATE CHANGE bolus 1,000-4,000 Units for subtherapeutic PTTAC results 1,000-4,000 Units INTRAVENOUS PRN fentaNYL 50 mcg/mL 25 mcg injection (SUBLIMAZE) 25 mcg INTRAVENOUS DAILY PRN warfarin order for discharge OTHER PRN ascorbic acid 500 mg chewable tab(s) 500 mg ORAL DAILY pyridoxine (vitamin B6) 50 mg tab(s) (VITAMIN B6) 50 mg ORAL DAILY vitamin A 10,000 Units cap(s) (AQUASOL A) 10,000 Units ORAL DAILY warfarin 10 mg tab(s) (COUMADIN) 10 mg ORAL ONCE - WARFARIN OBJECTIVE PHYSICAL EXAM: BP 108/63 Pulse (!) 52 Temp 36.8 ?C (98.2 ?F) (Oral) Resp 16 Wt 115.9 kg (255 lb 8.2 oz) SpO2 99% BMI 36.99 kg/m? Intake/Output Summary (Last 24 hours) at 05/06/2025 1107 Last data filed at 05/06/2025 0552 Gross per 24 hour Intake 400 ml Output 0 ml Net 400 ml GENERAL: Awake, alert, in no acute distress SKIN: Warm and dry HEENT: Normocephalic, Atraumatic LUNGS: Normal respiratory effort. 2L O2 CARDIAC: RRR ABDOMEN: Soft, non-tender, non-distended. EXTREMITIES: +peripheral edema NEURO: AOx3, normal speech Vascular Access: Hemodialysis catheter location: Right Tunneled internal jugular. Exit site demonstrates: normal findings DATA: Diagnostic tests reviewed for today's visit: Recent Labs 05/06/25 0856 05/05/25 0551 05/04/25 0406 05/03/25 0628 05/02/25 0216 NA 138 137 136 136 136 K 4.7 4.3 5.0 4.3 5.1 CHLOR 96* 94* 93* 94* 93* CO2 26 28 24 26 23 BUN 32* 21 34* 23 41* CREAT 7.53* 5.29* 7.02* 5.64* 8.39* GLUC 90 93 109* 72* 76 ANION 16* 15 19* 16* 20* CA 7.7* 8.1* 7.7* 7.8* 7.5* P 5.4* 4.1 4.6 4.0 6.0* MG -- 2.2 -- -- -- Recent Labs 05/06/25 0856 05/05/25 1813 05/05/25 0551 05/04/25 0405 WBC 6.39 -- 5.68 5.69 HB 7.9* 9.5* 8.4* 9.6* HCT 26.0* 32.0* 28.0* 31.5* PLT 194 -- 223 240 ASSESSMENT: Mr. Weston is a 45 year old male with PMH significant for ESRD on IHD, HTN, SVC syndrome and brachiocephalic chronic occlusive disease c/b chronic chest wall and abdominal varices + venous wounds, chronic pain, jugular vein occlusion, p-AFIB, blind left eye, expressive dysphasia, endocarditis, NSTEMI, HFpEF, Mitral 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, MO, PE, CVA, CHB, colitis, Adjustment Disorder With Depressed Mood, MSSA bacteremia, Proximal Colon Ulcer, Hypothyroidism, Intra-Abdominal Varices, , S/P MAZE procedure, skin ulcers, GERD, YEIMY, DVTs Patient presented to [facility] on 04/20/25 with chief complaint of bloody wound drainage of his chronic Right chest wound and back wounds. Labs on presentation significant for elevated lactic acid, leukocytosis, anemia and supratherapeutic INR. Of note, his previous admission 10/12/2024-11/02/2024 was also for pain and bleeding of the wounds/skin ulcers. Biopsy was consistent with reactive ischemic changes at the time without features of Polyderma Gangrenosum or calciphylaxis. Patient was admitted under general internal medicine team for further management. Nephrology consulted for ESR management. 1.ESRD History -Etiology: HTN Renal Biopsy 2006 renal failure, of undetermined etiology. 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 On midodrine -EDW 114 kg, pre-weigh today 115.3 kg? Bed weight with UF goal12.5 L as tolerated -Hypervolemic on exam 4.Anemia of CKD: -hgb near ESRD goal -S/P RBC transfusions 04/22 -Iron Stores 04/04: Ferritin 653 Iron 25 TIBC 180 TSAT 14 -Avoid IV iron in the setting of infection 5.Secondary renal hyperparathyroidism: -Phos stable on binder -Calcium corrects stable on sensipar -PTH 578 on calcitriol PLAN: -IHD today x 4.5 hours, 2 K bath with UF goal 2.5 L -Next dialysis planned for Friday -Continue renvela and sensipar -Continue midodrine -Continue calcitriol Standard ESRD recommendations and precautions: - Strict IANDOs and Daily weight - Consider a RENAL Diet for HD patients - Fluid restriction < 1 L - Start Nephrocap or other renal multivitamin to replace water-soluble vitamins lost during dialysis - Avoid Lovenox, Demerol, Morphine, K-containing IVF, Mg- or Phos- containing enemas - Dose meds GFR 10 ml/min Outpatient dialysis disposition plan: contact [phone] and ask to speak with the director of front office as needed for assistance with post-discharge arrangements. Please DO NOT schedule patient for a nephrology follow up appointment. Kidney care will be provided by the primary data warehousing engineer at their dialysis unit upon hospital discharge. SIGNATURE: Lucille Rosanna, RACKET STRINGER.FLORAL ASSOCIATE PATIENT NAME: Elia Weston DATE: May 06, 2025 TIME: 11:07 AM PAGER: [phone] FOR AFTER HOUR CONCERNS BETWEEN 5PM - 7AM CONTACT ON-CALL NEPHROLOGY FELLOW [phone] Disclosures: Parts of the current progress note may have been copied from a previous note. THERAPY NT Observed: 05/06/2025 9:40 AM Status: COMPLETED Source: [facility] HNO ID: [id number] Author: RENÉE MARTINES PT, SHAHAB Service: Physical Therapy Author Type: Physical Therapist Type: Therapy (PT/OT/Speech/Resp) Filed: 05/06/2025 10:37 Note Text: PHYSICAL THERAPY MISSED VISIT SERVICE DATE: 05/06/2025 SERVICE TIME: 939 ROOM: [place] [address] (6-1 Hemodialysis) Patient not seen due to Test / Procedure. SIGNATURE: Renée Martines PT, DPT PATIENT NAME: Elia Weston DATE: May 06, 2025 TIME: 9:40 AM RENAL FUNC 2000 PNL SERPL Collected: 8:56 AM Status: F Source: [facility] Order Comment: Specimen Type : BLOOD SPECIMEN Ordering Facility: [facility] Address: [address] [place] [address] TYPE CODE TESTS RESULT OUT OF RANGE REFERENCE UNITS LAB 1751-7(LOINC) Albumin SerPl-mCnc 3.4 Low 3.9-4.9 g/dL LAB 22526-0(LOINC) Calcium SerPl-mCnc 7.7 Low 8.5-10.2 mg/dL LAB 2777-1(LOINC) Phosphate SerPl-mCnc 5.4 High 2.7-4.8 mg/dL LAB 2345-7(LOINC) Glucose SerPl-mCnc 90 74-99 mg/dL Result Comment: The [place] Diabetes Association (ADA) provides guidance for cutoff values for fasting glucose and random glucose. The ADA defines fasting as no caloric intake for at least 8 hours. Fasting plasma glucose results between 100 to 125 mg/dL indicate increased risk for diabetes (prediabetes). Fasting plasma glucose results greater than or equal to 126 mg/dL meet the criteria for diagnosis of diabetes. In the absence of unequivocal hyperglycemia, results should be confirmed by repeat testing. In a patient with classic symptoms of hyperglycemia or hyperglycemic crisis, random plasma glucose results greater than or equal to 200 mg/dL meet the criteria for diagnosis of diabetes. Reference: Standards of Medical Care in Diabetes 2016, [place] Diabetes Association. Diabetes Care. 2016.39(Suppl 1). LAB 3094-0(LOINC) BUN SerPl-mCnc 32 High 9-24 mg/dL LAB 2160-0(LOINC) Creat SerPl-mCnc 7.53 High 0.73-1.22 mg/dL LAB 2951-2(LOINC) Sodium SerPl-sCnc 138 136-144 mmol/L LAB 2823-3(LOINC) Potassium SerPl-sCnc 4.7 3.7-5.1 mmol/L LAB 2075-0(LOINC) Chloride SerPl-sCnc 96 Low 98-107 mmol/L LAB 2027-9(LOINC) CO2 SerPl-sCnc 26 22-30 mmol/L LAB 93983-5(LOINC) Anion Gap SerPl-sCnc 16 High 8-15 mmol/L LAB 17317-8(LOINC) eGFRcr SerPlBld CKD-EPI 2020 8 Low >=60 mL/min/1. 73m??? Result Comment: Estimated Gl omerular Filtration Rate (eGFR) is calculated using the 2020 CKD-EPI creatinine equation. This equation utilizes serum creatinine, sex, and age as parameters. The creatinine assay has traceable calibration to isotope dilution-mass spectrometry. Refer to KDIGO guidelines for clinical interpretation. In patients with unstable renal function, e.g. those with acute kidney injury, the eGFR may not accurately reflect actual GFR. Performed By: #### 38951-1, 3016-3, 3024-7 #### [facility] CLIA [id number] [address] [place] [address] [place] T4 FREE SERPL-MCNC Collected: 05/06/2025 8:56 AM Sta tus: F Source: [facility] Order Comment: Specimen Type : BLOOD SPECIMEN Ordering Facility: [facility] Address: [address] [place] [address] TYPE CODE TESTS RESULT OUT OF RANGE REFERENCE UNITS LAB 3024-7(LOINC) T4 Free SerPl-mCnc 1.4 0.9-1.7 ng/dL Performed By: #### 66673-8, 3016-3, 302-7 #### [facility] CLIA [id number] [address] [place] [address] TSH SERPL-ACNC Collected: 5 8:56 AM Status: F Source: [facility] Order Comment: Specimen Type : BLOOD SPECIMEN Ordering Facility: [facility] Address: [address] [place] [address] TYPE CODE TESTS RESULT OUT OF RANGE REFERENCE UNITS LAB 3016-3([facility]) TSH SerPl-aCnc 15.600 High 0.270-4.200 mIU/L Performed By: #### 87195-1, 3016-3, 7 #### [facility] CLIA [id number] [address] [place] [address] CBC PNL BLD AUTO Collected: 5 8:56 AM Status: F Source: [facility] Order Comment: Specimen Type : BLOOD SPECIMEN Ordering Facility: [facility] Address: [address] [place] [address] TYPE CODE TESTS RESULT OUT OF RANGE REFERENCE UNITS LAB 6690-2(INC) WBC # Bld Auto 6.39 3.70-11.00 k/uL LAB 789-8(LOINC) RBC # Bld Auto 2.79 Low 4.20-6.00 m/uL LAB 718-7(LOINC) Hgb Bld-mCnc 7.9 Low 13.0-17.0 g/dL LAB 4544-3(INC) Hct VFr Bld Auto 26.0 Low 39.0-51.0 % LAB 787-2(LOINC) MCV RBC Auto 93.2 80.0-100.0 fL LAB 785-6(LOINC) MCH RBC Qn Auto 28.3 26.0-34.0 pg LAB 786-4(LOINC) MCHC RBC Auto-mCnc 30.4 Low 30.5-36.0 g/dL LAB 85827-0(LOINC) RDW RBC-Rto 20.1 High 11.5-15.0 % LAB 777-3([facility]) Platelet # Bld Auto 194 150-400 k/uL LAB 27209-9([facility]) PMV Bld Auto 12.0 9.0-12.7 fL LAB 771-6([facility]) nRBC # Bld Auto <0.01 <0.01 k/uL Performed By: #### 71642-6 # ### [facility] CLIA [id number] [address] [place] [address] [place] [facility] PT PNL PPP Collected: 05/06/2025 8:56 AM Status: F Source: [facility] Order Comment: Specimen Type : BLOOD SPECIMEN Ordering Facility: [facility] Address: [address] [place] [address] TYPE CODE TESTS RESULT OUT OF RANGE REFERENCE UNITS LAB 5902-2([facility]) Prothrombin time 23.1 High 9.7-13.0 sec LAB 6301-6([facility]) INR PPP 2.3 High 0.9-1.3 Result Comment: Vitamin K An tagonist (VKA) Therapeutic Range: INR 2 to 3 (Target INR of 2.5) Note: For patients treated with VKA drugs, such as warfarin, the [place] College of Chest Physicians 2012 Guideline recommends a therapeutic INR range of 2 to 3 (target INR of 2.5). This recommendation includes high-risk patients with antiphospholipid syndrome with previous arterial or venous thromboembolism, current-generation mechanical or bioprosthetic aortic heart valve replacement. Note: Patients with mechanical aortic valve replacement and additional risk factors for thromboembolic events (atrial fibrillation, previous thromboembolism, LV dysfunction, hypercoagulable conditions) or an older generation mechanical AVR (i.e., ball in-Cage) or any mechanical MVR should have a INR therapeutic range of 2.5 to 3.5 (target INR of 3). Ranjit GH, et al. Chest 2012, 141:7S-47S Kevin RUSHING et al. [facility] 2017, 70: 252-289 Performed By: #### 36246-0, PTTAC #### [facility] CLIA [id number] [address] [place] [address] PTT, ANTICOAGULANT THERAPY Collected: 0 05/06/2025 8:56 AM Status: F Source: [facility] Order Comment: Specimen Type : BLOOD SPECIMEN Ordering Facility: [facility] Address: [address] [place] [address] TYPE CODE TESTS RESULT OUT OF RANGE REFERENCE UNITS LAB 60831-7(LOINC) aPTT PPP 69.8 High 23.0-32.4 sec Performed By: #### 99074-1, PTTAC #### [facility] CLIA [id number] [address] [place] [address] PROGRESS Observed: 05/06/2025 5:02 AM Status: COMPLETED Source: [facility] HNO ID: [id number] Author: ANA DAELY MD Service: General Internal Medicine Author Type: Resident Type: Progress Notes Filed: 05/06/2025 18:13 Note Text: Attestation signed by Ana Daley MD at 05/06/2025 6:13 PM [facility] STAFF PHYSICIAN NOTE OF PERSONAL INVOLVEMENT IN CARE I have reviewed the progress note obtained and documented by the resident and I personally participated in the mendoza components. I have discussed the case and management of the patient's care. The following comments revise or confirm relevant mendoza components of their note. Patient was seen and examined. No new complaints except for same pain during dressing changes. INR 2.4 today. 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 Bleeding resolved # Blood loss anemia from above s/p 1 pRBC (04/21) and 2 pRBC (04/22) with Anemia of chronic disease -Seen by dermatology. Patient declined repeat biopsy. Given infectious work up of his wounds has been negative, Dermatology recommended clobetasol 0.05% ointment initially to be applied to wound edge twice daily --discontinued 05/03 per derm recs -significant pain during dressing changes, stared on Iv fentanyl while inpatient prior to dressing changes. -Vit C and Vit B6 oral supplementation given levels for both are low. 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 Follow INR. 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 Dr. Sana Mir will assume care of patients starting tomorrow. SIGNATURE: Ana Daley MD, FACP, [facility] DATE of SERVICE: May 06, 2025 INPATIENT INTERNAL MEDICINE PROGRESS NOTE PATIENT NAME: Elia Weston ; AGE: 6 1980; 45 year old [address] DATE OF SERVICE: 05/06/2025 ATTENDING PHYSICIAN: Ana Daley MD TIME OF SERVICE: AM Rounds SERVICE: Inpatient Medicine service Admit Date: 04/20/2025 Length of Stay: 15 Reason for Admission: Bleeding from wounds. Brief Summary Mr. 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 Patient was hospitalized in September 2024 to October 2024 for pain and bleeding from the wounds. Patient was seen by dermatology back then for his skin ulcers. Biopsy performed and was most c/w reactive ischemic changes without features of Pyoderma Gangrenosum or Calciphylaxis. Now, plan for venoplasty with IR pending improvement in INR. Dermatology consulted, plan for starting topical steroid on wound edge. Interval Events/Subjective: - No acute events overnight, slept well overnight. - This morning, patient lying in bed comfortable. Denies pain on his chest wounds. No new concerns. - Vitals: Afebrile, HR 52-140, 52 this am, low-stable SBP 82-108 with MAPs 53-73, satting well on RA and CPAP. - Warfain 10 mg given yesterday - PRN: oxy 10mg q6h x3, IV fent x 2 past 24 hours - BM: 0 bowel movement for past 48 hours. Scheduled polyethylene glycol as bowel regimen. Objective: BP: 108/63 Temp: 36.8 ?C (98.2 ?F) Temp src: Oral Pulse: 52 Resp: 16 O2 Therapy: Room Air SpO2: 99 % Physical Exam GENERAL: Alert, no distress, cooperative SKIN: Chest wounds with dressing on them. Right dressing with blood, hemoglobin stable this morning. Left wound dressing clean, dry, and intact. Previously seen: R and L anterior and posterior chest wounds - chronic, bleeding, no purulent discharge. Right flank/back chronic wounds. Images scanned in chart. LUNGS: Lungs clear to auscultation bilaterally, no wheezes or crackles. CARDIAC: Regular rate and rhythm. No murmurs. ABDOMEN: Distended, non-tender. EXTREMITIES: No pitting edema on lower extremities bilaterally. Pertinent Labs: INR: 2.3 (goal of 2.5-3.5), BUN: 32, Cr: 7.53, Hgb: 7.9, M.2 Lines, Drains, and Airways Line Duration Peripheral 04/26/25 2[facility] Right Forearm 20 Gauge 9 days Dialysis / Apheresis Double Lumen 04/29/25 1005 [facility] Tunneled Right Internal Jugular 6 days Active Hospital Problems Diagnosis Bleeding from open wound of chest wall, right, initial encounter Vitamin C deficiency Vitamin A deficiency Vitamin B6 deficiency Skin ulcers (HCC) Hypervolemia Difficult intravenous access Consult IR prior to removal of any catheters Bleeding from wound Open chest wound, right, sequela Unknown etiology Open chest wound, left, sequela Unknown etiology Back wound, unspecified laterality, sequela - Mid Back - Unknown Etiology - POA - Right Upper Back - Unknown Etiology - POA Open wound of abdomen Unknown Etiology Open wound of right thigh Unknown Etiology Wounds, multiple Anemia due to multiple mechanisms Hemorrhage from open wound of left chest wall Ulcers, venous ([facility]) Status post Maze operation for atrial fibrillation 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 Acquired hypothyroidism Adjustment disorder with depressed mood Acute on chronic blood loss anemia Supratherapeutic INR S/P MVR (mitral valve replacement) History: MR Assessment: 08/21/2021: OnX 25/ + posterior mitral annulus patch with bovine pericardial + Left CryoMAZE + Left atrial appendage ligation Plan: ASA, start Coumadin 08/24, hep gtt Vitamin D deficiency History of non-ST elevation myocardial infarction (NSTEMI) ESRD on hemodialysis (HCC) Atrial fibrillation (HCC) on Coumadin and Amiodarone Secondary hyperparathyroidism, renal (HCC) Reportedly elevated PTH High PhxCa ratio in the past Now with worsening metastatic calcifications Will recheck Ca, PO4, Vitamin D, and PTH Continue phosphate binders If PTH elevated, ? Need to calcimemtics to suppress the PTH Will discuss further with the nephrology team MEDICATIONS Current Facility-Administered Medications Medication Dose Route Frequency NaCl 0.9% iv flush bag 20 mL INTRAVENOUS PRN acetaminophen 650 mg tab(s) (TYLENOL) 650 mg ORAL q 6 H PRN aspirin 81 mg chewable tab(s) 81 mg ORAL DAILY midodrine 20 mg tab(s) (PROAMATINE) 20 mg ORAL q 8 H cinacalcet 60 mg tab(s) (SENSIPAR) 60 mg ORAL DAILY iv contrast (radiology procedure) INTRAVENOUS DIRECTED PRN sevelamer carbonate 800 mg tab(s) (RENVELA) 800 mg ORAL TID w MEALS oxyCODONE IR 10 mg tab(s) (ROXICODONE) 10 mg ORAL q 6 H PRN polyethylene glycol 3350 17 g packet 17 g ORAL DAILY calcitriol 1.5 mcg cap(s) (ROCALTROL) 1.5 mcg ORAL -WE- LORazepam 0.25 mg tab(s) (ATIVAN) 0.25 mg ORAL DAILY PRN heparin iv infusion 25,000 units in NaCl 0.45% 250 mL LOW DOSE/ACS NOMOGRAM 0-3,000 Units/hr INTRAVENOUS CONTINUOUS And heparin RATE CHANGE bolus 1,000-4,000 Units for subtherapeutic PTTAC results 1,000-4,000 Units INTRAVENOUS PRN fentaNYL 50 mcg/mL 25 mcg injection (SUBLIMAZE) 25 mcg INTRAVENOUS DAILY PRN warfarin order for discharge OTHER PRN ascorbic acid 500 mg chewable tab(s) 500 mg ORAL DAILY pyridoxine (vitamin B6) 50 mg tab(s) (VITAMIN B6) 50 mg ORAL DAILY vitamin A 10,000 Units cap(s) (AQUASOL A) 10,000 Units ORAL DAILY Labs: CBC: Recent Labs 05/05/25 1813 05/05/25 0551 05/04/25 0405 05/03/25 0628 05/01/25 0453 04/30/25 1248 04/29/25 1434 WBC -- 5.68 5.69 6.05 5.61 5.45 5.75 HB 9.5* 8.4* 9.6* 8.3* 8.5* 9.7* 9.7* HCT 32.0* 28.0* 31.5* 27.4* 28.7* 32.5* 32.5* PLT -- 223 240 259 307 343 298 MCV -- 92.7 94.3 92.6 94.1 91.8 92.6 RDWCV -- 19.9* 20.0* 19.8* 19.5* 19.4* 19.2* COAG: Recent Labs 05/05/25 0552 05/04/25 0406 05/03/25 0605/02/25 1720 05/02/25 0922 05/02/2521505/01/25201005/01/25 13105/01/25 04504/30/25200404/30/25 12404/29/25 1434 APTT 60.1* 55.8* 58.5* 60.0* 62.6* 44.1* 57.7* 46.1* 37.4* < > 36.8* -- INR 1.9* 1.9* 1.7* -- -- 1.8* -- -- 1.8* -- 2.2* 1.6* < > = values in this interval not displayed. BMP: Recent Labs 05/05/25 0505/04/25 04005/03/2562705/02/2521505/01/25 0453 04/30/25 1248 04/29/25 1434 GLUC 93 109* 72* 76 83 78 110* NA 137 136 136 136 137 136 135* K 4.3 5.0 4.3 5.1 4.8 4.8 5.2* CHLOR 94* 93* 94* 93* 93* 92* 95* CO2 28 24 26 23 27 25 22 ANION 15 19* 16* 20* 17* 19* 18* BUN 21 34* 23 41* 31* 17 26* CREAT 5.29* 7.02* 5.64* 8.39* 6.66* 5.21* 7.29* CHEM: Recent Labs 05/05/25 0551 05/04/25 0406 05/03/2562705/02/2521505/01/25 0453 04/30/25 1248 04/29/25 1434 ALB 3.4* 3.7* 3.4* 3.5* 3.6* 3.8* 3.5* CA 8.1* 7.7* 7.8* 7.5* 7.8* 8.6 7.8* MG 2.2 -- -- -- -- -- -- HEPATIC: No results for input(s): ALKPHOS, ALT, AST, TBILI, LIPASE in the last 168 hours. URINALYSIS:No results for input(s): PH, SPGR, UGLUC, UBILI, UKET, UHB, UPROT, UROBIL, UWBC, SSA in the last 168 hours. Invalid input(s): NITR CARDIAC: No results for input(s): CKTEST, CKMB, CKMBP, TROPT, PBNP in the last 168 hours. MICROBIOLOGY: Positive Micro-30 Days No results found for the last 720 hours. Imaging: CXR 04/21/25: TDC with tip in RA. Increase of perihilar and basilar opacities with volume loss, suggesting atelectasis, possible underlying edema/inflammation. Blunting of L CP angle, which may represent tiny effusion or pleural thickening. CT A/P 04/22/25: No abdominal or pelvic subcutaneous fluid collection of gas. Redemonstrated diffuse subcutaneous extensive abdominal wall collaterals, similar to prior CTA 10/17/2024. CT chest 04/22/25: extensive chest wall collaterals, few areas of skin ulceration, no areas of drainable fluid collection. Findings consistent with central venous stenoses. Few patchy groundglass opacities, may be related to mild pulm edema Assessment AND Plan: Elia Weston is a 45 year old male with extensive PMH, significant for ESRD on HD (MWF) last session 04/18 (skipped Friday since he came to ED), CAD s/p CABG, severe MS s/p MVR on Warfarin, pAfib s/p maze procedure and RADHA clip and chronic chest/abdominal/back wounds (3 years) likely secondary to ischemia in context of SVC syndrome and multiple thrombosis, who presented to the ED with 1-day of left chronic chest wound bleeding. Admitted for management of bleeding, and on transfer to RNF, patient began to have significant bleeding from R chest wound. Continuous pressure was applied and bleeding stopped. Now s/p FFP and RBC transfusions as appropriate. Initially started on Vanc/Zosyn given elevated ESR/CRP and WBC, no infectious concern on further imaging with improved lactate WBC, so abx were stopped. Dermatology and wound care consulted. IR consulted, planning for venoplasty given INR reversal. 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 Hx of hemorrhagic shock from bleeding abdominal wounds - presenting with acute worsening of pain and bleeding from wounds. Denies purulent discharge from wounds. - Leukocytosis + Elevated CRP 22.1 and ESR 133 + Elevated lactate on presentation; concerned for infected wounds/soft tissue infection. Started on IV vanc/zosyn, later d/janie due to low infectious concern (04/21-04/25) - On admission, acute rise in lactate in light of acute significant bleeding and drop in HGB (8.6 from 9.5 in ED) likely secondary to hypovolemia, also missed dialysis - CT venogram on 10/19/24 with b/l brachiocephalic stenosis w b/l subclavian vein occlusion, extensive venous collaterals - 10/22/24: Venoplasty completed by IR, removed L femoral TDC, exchanged R TDC - blood cultures 04/20/25 with NG5D x2 - AMET for hypotension 80/50, s/p 500 cc LR bolus, scheduled midodrine with improved repeat 102/63 - lactate 2.4 from 1.7, improved from 3.2 at admission. Completed 5d course of IV vanc/zosyn (04/21-04/25) - CT chest and CT A/P 04/22/25 with no drainable fluid collections, extensive chest collaterals - nutritional workup: B12 elevated, folate wnl, iron low 26, TIBC low 137, trans sat wnl, low vit D 22.9, zinc 69 wnl, low vit A 0.10 - 04/29/25: Venoplasty: completed by IR. 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 Right upper chest tunneled dialysis catheter was exchanged over a wire for a new on; ready for use PLAN: - IR consulted: > venoplasty 04/29/2025 - no complications - Derm consulted: > ongoing nutritional workup > discontinued clobetasol 0.05% ointment BID per derm, lesion over R scapula, try to simulate tx of PG and assess response > [facility] Derm f/u outpatient - continue vitamin D supplement 5000 unit(s), ascorbic acid 500mg/day, vit B6 50mg/day, vit A 10,000 units/day - wound care team consulted, appreciate care - pain control: tylenol 650 mg q6h prn and oxycodone 10 mg po q6h PRN. > IV fent for dressing changes as needed - plastic surgery consulted: > no indication for surgical intervention at this time - Cautious fluid resuscitation in light of acute bleeding and ESRD anuric on HD - Chest wound dressings to be changed every day #Supratherapeutic INR #CAD s/p CABG #Severe MS s/p mechanical MVR on coumadin #Paroxysmal Afib s/p multiple DCCV s/p Maze procedure + RADHA clip (07/2021) - atrial fibrillation and severe mitral stenosis s/p mechanical mitral valve replacement with On-x valve (INR goal 2.5-3.5), Maze procedure and RADHA clip on 08/21/2021. - Goal INR 2.5- 3.5; on warfarin 2.5 mg daily although patient not sure of dose, has been changed recently; last dose of warfarin Thursday 04/19 - INR elevated to 5.1 on admission, improved to 3.9 s/p 2u FFP 04/21 - possible etiology of supratherapeutic INR: warfarin dose (given patient not sure of home dose) vs malnutrition vs liver disease (less likely given AST/ALT wnl) - INR elevated again to 5.3, patient received po vitamin K 5 mg 04/25. Improved to 1.7 PLAN: - given subtherapeutic INR and no intervention by plastic surgery planned, continue bridging to warfarin > goal INR 2.5 - 3.5, given mechanical valve. - INR 2.3 on 05/06/25 - continue heparin gtt, bridge with warfarin (to give 10 mg today) - Daily INR - Follows with Dr. Moreno (cardiology in [place]) for mgmt of Coumadin, will need follow-up outpatient # Second-degree AV Block - Patient having multiple episodes of bradycardia in the hospital with low blood pressures - EKG (05/05/25) shows Second degree AV block, mobitz type 1 PLAN: - Cardiology team consulted, appreciate recs - Obtain an echocardiogram - Consult with electrophysiology team - Obtained magnesium levels, awaiting results #ESRD on HD via Right TDC #Chronic Hypotension #Secondary Hyperparathyroidism - iHD at [facility] through R. Tunneled HD catheter MWF - Last dialysis session Friday04/18/2025; missed Fri session because he presented to [facility] ED - anuric at baseline per patient - Serum P=9.7 - completed HD 04/21, now on MWF - PTH elevated 578, Ca 8.3 low PLAN: - nephrology consulted: > continue MWF HD schedule > continue calcitriol MWF - Continue Sensipar, renvela with meals - continue home Midodrine 20mg every 8 hours #Anemia of Chronic Disease/ESRD - Baseline hemoglobin 9-11 - iron studies 12/2024: iron 33, TIBC 156, Iron sat 21, ferritin 1327 - Hgb dropping iso bleeding wounds, as above. - received 1u pRBC 04/21, Hgb from 7.3 -> 7.7 post-transfusion - Hgb 6.9 on 04/22, s/p additional 2u pRBC with Hgb in ~8s PLAN: - Hgb goal >8, 7.9 this am - chronic wound mgmt, as above #Code status - Full # Diet - renal # VTE PPx - heparin gtt, bridge to warfarin # Dispo Planning - Pending clinical course, SW consulted for recent unemployment, c/f food insecurity These recommendations and plan are not final until co-signed by the attending physician Ana Daley MD. Giovanna Chowdhury, DO PGY-1 Neurology HCT VFR BLD AUTO Collected: 05/05/2025 6:13 PM Statu s: F Source: [facility] Order Comment: Specimen Type : BLOOD SPECIMEN Ordering Facility: [facility] Address: [address] [place] [address] TYPE CODE TESTS RESULT OUT OF RANGE REFERENCE UNITS LAB 4544-3(LOINC) Hct VFr Bld Auto 32.0 Low 39.0-51.0 % Performed By: #### 4544-3, 7 18-7 #### [facility] CLIA [id number] [address] [place], [place] [address] [facility] HGB BLD-MCNC Collected: 05/05/2025 6:13 PM Status: F Source: [facility] Order Comment: Specimen Type : BLOOD SPECIMEN Ordering Facility: [facility] Address: [address] [place] [address] TYPE CODE TESTS RESULT OUT OF RANGE REFERENCE UNITS LAB 718-7(LOINC) Hgb Bld-mCnc 9.5 Low 13.0-17.0 g/dL Performed By: #### 4544-3, 7 #### [facility] CLIA [id number] [address] [place] [address] PROGRESS Observed: 05/05/2025 3:28 PM Status: COMPLETED Source: [facility] HNO ID: [id number] Author: ?, ?, ? Service: Nephrology Author Type: ? Type: Progress Notes Filed: 05/05/2025 15:29 Note Text: DIALYSIS PLACEMENT NOTE Confirmed patient's IHD schedule with established outpatient dialysis unit. He is able to resume schedule when discharged. Facility: [facility] ([address] [address]) Days: Mon/Fri/Fri Chair Time: 9:00 AM Configuration Release Manager: Dr. Melendez Signature: Bj Rico Patient Name: Elia Weston Date: May 05, 2025 Time: 3:28 PM CONSULT PROG Observed: 05/05/2025 11:39 AM Status: COMPLETED Source: [facility] HNO ID: [id number] Author: KIMBERLY LYNN APRN.FLORAL ASSOCIATE Service: Wound Care Team Author Type: Nurse Practitioner Type: Consult Progress Note Filed: 05/05/2025 11:41 Note Text: Wound Care Consult Team Assessment Note: PATIENT NAME: Elia Weston Attempted to see patient to re-evaluate wounds today at 1008. Patient declined due to wanting to sleep. Educated patient on the importance and needs of evaluation and management of wound care however the patient continued to decline wound evaluation today. Will attempt again at a future date. Kimberly Lynn APRN.FLORAL ASSOCIATE PT PNL PPP Collected: 05/05/2025 5:52 AM Status: F Source: [facility] Order Comment: Specimen Type : BLOOD SPECIMEN Ordering Facility: [facility] Address: [address] [place] [address] TYPE CODE TESTS RESULT OUT OF RANGE REFERENCE UNITS LAB 5902-2(LOINC) Prothrombin time 20.1 High 9.7-13.0 sec LAB 6301-6(LOINC) INR PPP 1.9 High 0.9-1.3 Result Comment: Vitamin K An tagonist (VKA) Therapeutic Range: INR 2 to 3 (Target INR of 2.5) Note: For patients treated with VKA drugs, such as warfarin, the [place] [employer]icians 2012 Guideline recommends a therapeutic INR range of 2 to 3 (target INR of 2.5). This recommendation includes high-risk patients with antiphospholipid syndrome with previous arterial or venous thromboembolism, current-generation mechanical or bioprosthetic aortic heart valve replacement. Note: Patients with mechanical aortic valve replacement and additional risk factors for thromboembolic events (atrial fibrillation, previous thromboembolism, LV dysfunction, hypercoagulable conditions) or an older generation mechanical AVR (i.e., ball in-Cage) or any mechanical MVR should have a INR therapeutic range of 2.5 to 3.5 (target INR of 3). Ranjit GH, et al. Chest 2012, 141:7S-47S Kevin RA, et al. JACC 2017, 70: 252-289 Performed By: #### 94782-9, PTTAC #### [facility] CLIA [id number] [address] [place], [place] [address] [address] [place] PTT, ANTICOAGULANT THERAPY Collected: 0 05/05/2025 5:52 AM Status: F Source: [facility] Order Comment: Specimen Type : BLOOD SPECIMEN Ordering Facility: [facility] Address: [address] [place], [place] [address] TYPE CODE TESTS RESULT OUT OF RANGE REFERENCE UNITS LAB 61863-5([facility]) aPTT PPP 60.1 High 23.0-32.4 sec Performed By: #### 73513-7, PTTAC #### [facility] CLIA [id number] [address] [place], [place] [address] [place] CBC PNL BLD AUTO Collected: 5 5:51 AM Status: F Source: [facility] Order Comment: Specimen Type : BLOOD SPECIMEN Ordering Facility: [facility] Address: [address] [place] [address] TYPE CODE TESTS RESULT OUT OF RANGE REFERENCE UNITS LAB 6690-2([facility]) WBC # Bld Auto 5.68 3.70-11.00 k/uL LAB 789-8(INC) RBC # Bld Auto 3.02 Low 4.20-6.00 m/uL LAB 718-7(INC) Hgb Bld-mCnc 8.4 Low 13.0-17.0 g/dL LAB 4544-3([facility]) Hct VFr Bld Auto 28.0 Low 39.0-51.0 % LAB 787-2(INC) MCV RBC Auto 92.7 80.0-100.0 fL LAB 785-6(INC) MCH RBC Qn Auto 27.8 26.0-34.0 pg LAB 786-4([facility]) MCHC RBC Auto-mCnc 30.0 Low 30.5-36.0 g/dL LAB 80007-2([facility]) RDW RBC-Rto 19.9 High 11.5-15.0 % LAB 777-3([facility]) Platelet # Bld Auto 223 150-400 k/uL LAB 05822-4([facility]) PMV Bld Auto 12.1 9.0-12.7 fL LAB 771-6([facility]) nRBC # Bld Auto <0.01 <0.01 k/uL Performed By: #### 04703-0 # ### [facility] CLIA [id number] [address] [place], [place] [address] [place] [address] [place] RENAL FUNC 2000 PNL SERPL Collected: 5:51 AM Status: F Source: [facility] Order Comment: Specimen Type : BLOOD SPECIMEN Ordering Facility: [facility] Address: [address] [place] [address] TYPE CODE TESTS RESULT OUT OF RANGE REFERENCE UNITS LAB 1751-7(LOINC) Albumin SerPl-mCnc 3.4 Low 3.9-4.9 g/dL LAB 11167-8(LOINC) Calcium SerPl-mCnc 8.1 Low 8.5-10.2 mg/dL LAB 2777-1(LOINC) Phosphate SerPl-mCnc 4.1 2.7-4.8 mg/dL LAB 2345-7(LOINC) Glucose SerPl-mCnc 93 74-99 mg/dL Result Comment: The [place] Diabetes Association (ADA) provides guidance for cutoff values for fasting glucose and random glucose. The ADA defines fasting as no caloric intake for at least 8 hours. Fasting plasma glucose results between 100 to 125 mg/dL indicate increased risk for diabetes (prediabetes). Fasting plasma glucose results greater than or equal to 126 mg/dL meet the criteria for diagnosis of diabetes. In the absence of unequivocal hyperglycemia, results should be confirmed by repeat testing. In a patient with classic symptoms of hyperglycemia or hyperglycemic crisis, random plasma glucose results greater than or equal to 200 mg/dL meet the criteria for diagnosis of diabetes. Reference: Standards of Medical Care in Diabetes 2016, [place] Diabetes Association. Diabetes Care. 2016.39(Suppl 1). LAB 3094-0(LOINC) BUN SerPl-mCnc 21 9-24 mg/dL LAB 2160-0(LOINC) Creat SerPl-mCnc 5.29 High 0.73-1.22 mg/dL LAB 2951-2(LOINC) Sodium SerPl-sCnc 137 136-144 mmol/L LAB 2823-3(LOINC) Potassium SerPl-sCnc 4.3 3.7-5.1 mmol/L LAB 2075-0(LOINC) Chloride SerPl-sCnc 94 Low 98-107 mmol/L LAB 2028-9(LOINC) CO2 SerPl-sCnc 28 22-30 mmol/L LAB 54945-3(LOINC) Anion Gap SerPl-sCnc 15 8-15 mmol/L LAB 22839-6(LOINC) eGFRcr SerPlBld CKD-EPI 2020 13 Low >=60 mL/min/1. 73m??? Result Comment: Estimated Gl omerular Filtration Rate (eGFR) is calculated using the 2020 CKD-EPI creatinine equation. This equation utilizes serum creatinine, sex, and age as parameters. The creatinine assay has traceable calibration to isotope dilution-mass spectrometry. Refer to KDIGO guidelines for clinical interpretation. In patients with unstable renal function, e.g. those with acute kidney injury, the eGFR may not accurately reflect actual GFR. Performed By: #### 68249-6, 06785-4 #### [facility] CLIA [id number] [address] [place] [address] OF [facility] MAGNESIUM SERPL-MCNC Collected: 05/05/2025 5:51 AM S tatus: F Source: [facility] Order Comment: Specimen Type : BLOOD SPECIMEN Ordering Facility: [facility] Address: [address] [place] [address] TYPE CODE TESTS RESULT OUT OF RANGE REFERENCE UNITS LAB 46482-4([facility]) Magnesium SerPl-mCnc 2.2 1.7-2.3 mg/dL Performed By: #### 04794-1, 49904-2 #### [facility] CLIA [id number] [address] [place] [address] OF [facility] PROGRESS Observed: 05/05/2025 5:07 AM Status: COMPLETED Source: [facility] HNO ID: [id number] Author: ANA DALEY MD Service: General Internal Medicine Author Type: Resident Type: Progress Notes Filed: 05/05/2025 17:12 Note Text: Attestation signed by Ana Daley MD at 05/05/2025 5:12 PM [facility] STAFF PHYSICIAN NOTE OF PERSONAL INVOLVEMENT IN CARE I have reviewed the progress note obtained and documented by the resident and I personally participated in the mendoza components. I have discussed the case and management of the patient's care. The following comments revise or confirm relevant mendoza components of their note. Patient was seen and examined. No new complaints. Had intermittent fluctuations in HR 45 to 135 though asymptomatic. Prior EKGs with accelerated junctional rhythm Reports no bleeding from wounds but reports dressing has not been changed yet. Pain controlled INR 1.9 today. 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 Bleeding resolved # Blood loss anemia from above s/p 1 pRBC (04/21) and 2 pRBC (04/22) with Anemia of chronic disease -Seen by dermatology. Patient declined repeat biopsy. Given infectious work up of his wounds has been negative, Dermatology recommended clobetasol 0.05% ointment initially to be applied to wound edge twice daily --discontinued 05/03 per derm recs -significant pain during dressing changes, stared on Iv fentanyl while inpatient prior to dressing changes. -Vit C and Vit B6 oral supplementation given levels for both are low. 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 Follow INR. Redose coumadin today 10 mg -Per patient , has established parts delivery driver locally who monitors his INR closely and plans to follow up with same physician for INR check on discharge -check EKG # Chronic hypotension, on home midodrine 20 mg TID DISPO: Once INR is therapeutic (Goal 2.5-3.5) Discussed plan of care with patient. SIGNATURE: Ana Daley MD, [facility] DATE of SERVICE: May 05, 2025 INPATIENT INTERNAL MEDICINE PROGRESS NOTE PATIENT NAME: Elia Weston ; AGE: 6 1980; 45 year old [address] DATE OF SERVICE: 05/05/2025 ATTENDING PHYSICIAN: Ana Daley MD TIME OF SERVICE: AM Rounds SERVICE: Inpatient Medicine service Admit Date: 04/20/2025 Length of Stay: 14 Reason for Admission: Bleeding from wounds. Brief Summary Mr. 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 Patient was hospitalized in September 2024 to October 2024 for pain and bleeding from the wounds. Patient was seen by dermatology back then for his skin ulcers. Biopsy performed and was most c/w reactive ischemic changes without features of Pyoderma Gangrenosum or Calciphylaxis. Now, plan for venoplasty with IR pending improvement in INR. Dermatology consulted, plan for starting topical steroid on wound edge. Interval Events/Subjective: - No acute events overnight, slept well overnight. - This morning, patient lying in bed comfortable. Denies pain on his chest wounds. No new concerns. - Vitals: Afebrile, HR 72-108, 54 this am, low-stable SBP 72-108 with MAPs 53-71, satting well on RA and CPAP. - Warfain 7.5mg given yesterday - PRN: oxy 10mg q6h x2, IV fent x0 past 24 hours - BM: 0 bowel movement for past 24 hours Objective: BP: 108/60 Temp: 37.1 ?C (98.8 ?F) Temp src: Oral Pulse: 54 Resp: 18 O2 Therapy: Room Air SpO2: 99 % Physical Exam GENERAL: Alert, no distress, cooperative SKIN: Chest wounds with dressing on them. Right dressing with blood, hemoglobin stable this morning. Left wound dressing clean, dry, and intact. Previously seen: R and L anterior and posterior chest wounds - chronic, bleeding, no purulent discharge. Right flank/back chronic wounds. Images scanned in chart. LUNGS: Lungs clear to auscultation bilaterally, no wheezes or crackles. CARDIAC: Regular rate and rhythm. No murmurs. ABDOMEN: Distended, non-tender. EXTREMITIES: No pitting edema on lower extremities bilaterally. Pertinent Labs: INR: 1.9 (goal of 2.5-3.5), BUN: 21, Cr: 5.29, Hgb: 8.4 Lines, Drains, and Airways Line Duration Peripheral 04/26/25 2[facility] Right Forearm 20 Gauge 8 days Dialysis / Apheresis Double Lumen 04/29/25 1005 [facility] Tunneled Right Internal Jugular 5 days Active Hospital Problems Diagnosis Bleeding from open wound of chest wall, right, initial encounter Vitamin C deficiency Vitamin A deficiency Vitamin B6 deficiency Skin ulcers (HCC) Hypervolemia Difficult intravenous access Consult IR prior to removal of any catheters Bleeding from wound Open chest wound, right, sequela Unknown etiology Open chest wound, left, sequela Unknown etiology Back wound, unspecified laterality, sequela - Mid Back - Unknown Etiology - POA - Right Upper Back - Unknown Etiology - POA Open wound of abdomen Unknown Etiology Open wound of right thigh Unknown Etiology Wounds, multiple Anemia due to multiple mechanisms Hemorrhage from open wound of left chest wall Ulcers, venous (HCC) Status post Maze operation for atrial fibrillation 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 Acquired hypothyroidism Adjustment disorder with depressed mood Acute on chronic blood loss anemia Supratherapeutic INR S/P MVR (mitral valve replacement) History: MR Assessment: 08/21/2021: OnX + posterior mitral annulus patch with bovine pericardial + Left CryoMAZE + Left atrial appendage ligation Plan: ASA, start Coumadin 08/24, hep gtt Vitamin D deficiency History of non-ST elevation myocardial infarction (NSTEMI) ESRD on hemodialysis (HCC) Atrial fibrillation (HCC) on Coumadin and Amiodarone Secondary hyperparathyroidism, renal (HCC) Reportedly elevated PTH High PhxCa ratio in the past Now with worsening metastatic calcifications Will recheck Ca, PO4, Vitamin D, and PTH Continue phosphate binders If PTH elevated, ? Need to calcimemtics to suppress the PTH Will discuss further with the nephrology team MEDICATIONS Current Facility-Administered Medications Medication Dose Route Frequency NaCl 0.9% iv flush bag 20 mL INTRAVENOUS PRN acetaminophen 650 mg tab(s) (TYLENOL) 650 mg ORAL q 6 H PRN aspirin 81 mg chewable tab(s) 81 mg ORAL DAILY midodrine 20 mg tab(s) (PROAMATINE) 20 mg ORAL q 8 H cinacalcet 60 mg tab(s) (SENSIPAR) 60 mg ORAL DAILY iv contrast (radiology procedure) INTRAVENOUS DIRECTED PRN sevelamer carbonate 800 mg tab(s) (RENVELA) 800 mg ORAL TID w MEALS oxyCODONE IR 10 mg tab(s) (ROXICODONE) 10 mg ORAL q 6 H PRN polyethylene glycol 3350 17 g packet 17 g ORAL DAILY calcitriol 1.5 mcg cap(s) (ROCALTROL) 1.5 mcg ORAL LORazepam 0.25 mg tab(s) (ATIVAN) 0.25 mg ORAL DAILY PRN heparin iv infusion 25,000 units in NaCl 0.45% 250 mL LOW DOSE/ACS NOMOGRAM 0-3,000 Units/hr INTRAVENOUS CONTINUOUS And heparin RATE CHANGE bolus 1,000-4,000 Units for subtherapeutic PTTAC results 1,000-4,000 Units INTRAVENOUS PRN fentaNYL 50 mcg/mL 25 mcg injection (SUBLIMAZE) 25 mcg INTRAVENOUS DAILY PRN warfarin order for discharge OTHER PRN ascorbic acid 500 mg chewable tab(s) 500 mg ORAL DAILY pyridoxine (vitamin B6) 50 mg tab(s) (VITAMIN B6) 50 mg ORAL DAILY vitamin A 10,000 Units cap(s) (AQUASOL A) 10,000 Units ORAL DAILY Labs: CBC: Recent Labs 05/04/2540405/03/2562705/01/2545204/30/258 04/29/25 1434 WBC 5.69 6.05 5.61 5.45 5.75 HB 9.6* 8.3* 8.5* 9.7* 9.7* HCT 31.5* 27.4* 28.7* 32.5* 32.5* PLT 240 259 307 343 298 MCV 94.3 92.6 94.1 91.8 92.6 RDWCV 20.0* 19.8* 19.5* 19.4* 19.2* COAG: Recent Labs 05/04/2540505/03/2562705/02/25 17205/02/25 0922 05/02/2521505/01/25201005/01/25 13105/01/2545204/30/25200404/30/25 12404/29/25 1434 APTT 55.8* 58.5* 60.0* 62.6* 44.1* 57.7* 46.1* 37.4* < > 36.8* -- INR 1.9* 1.7* -- -- 1.8* -- -- 1.8* -- 2.2* 1.6* < > = values in this interval not displayed. BMP: Recent Labs 05/04/2540505/03/2562705/02/2521505/01/2545204/30/25 12404/29/25 1434 GLUC 109* 72* 76 83 78 110* NA 136 136 136 137 136 135* K 5.0 4.3 5.1 4.8 4.8 5.2* CHLOR 93* 94* 93* 93* 92* 95* CO2 24 26 23 27 25 22 ANION 19* 16* 20* 17* 19* 18* BUN 34* 23 41* 31* 17 26* CREAT 7.02* 5.64* 8.39* 6.66* 5.21* 7.29* CHEM: Recent Labs 05/04/25 0406 05/03/25 0628 05/02/25 0216 05/01/25 0453 04/30/25 1248 04/29/25 1434 ALB 3.7* 3.4* 3.5* 3.6* 3.8* 3.5* CA 7.7* 7.8* 7.5* 7.8* 8.6 7.8* HEPATIC: No results for input(s): ALKPHOS, ALT, AST, TBILI, LIPASE in the last 168 hours. URINALYSIS:No results for input(s): PH, SPGR, UGLUC, UBILI, UKET, UHB, UPROT, UROBIL, UWBC, SSA in the last 168 hours. Invalid input(s): NITR CARDIAC: No results for input(s): CKTEST, CKMB, CKMBP, TROPT, PBNP in the last 168 hours. MICROBIOLOGY: Positive Micro-30 Days No results found for the last 720 hours. Imaging: CXR 04/21/25: TDC with tip in RA. Increase of perihilar and basilar opacities with volume loss, suggesting atelectasis, possible underlying edema/inflammation. Blunting of L CP angle, which may represent tiny effusion or pleural thickening. CT A/P 04/22/25: No abdominal or pelvic subcutaneous fluid collection of gas. Redemonstrated diffuse subcutaneous extensive abdominal wall collaterals, similar to prior CTA 10/17/2024. CT chest 04/22/25: extensive chest wall collaterals, few areas of skin ulceration, no areas of drainable fluid collection. Findings consistent with central venous stenoses. Few patchy groundglass opacities, may be related to mild pulm edema Assessment AND Plan: Elia Wseton is a 45 year old male with extensive PMH, significant for ESRD on HD (MWF) last session 04/18 (skipped Friday since he came to ED), CAD s/p CABG, severe MS s/p MVR on Warfarin, pAfib s/p maze procedure and RADHA clip and chronic chest/abdominal/back wounds (3 years) likely secondary to ischemia in context of SVC syndrome and multiple thrombosis, who presented to the ED with 1-day of left chronic chest wound bleeding. Admitted for management of bleeding, and on transfer to [facility], patient began to have significant bleeding from R chest wound. Continuous pressure was applied and bleeding stopped. Now s/p FFP and RBC transfusions as appropriate. Initially started on Vanc/Zosyn given elevated ESR/CRP and WBC, no infectious concern on further imaging with improved lactate WBC, so abx were stopped. Dermatology and wound care consulted. IR consulted, planning for venoplasty given INR reversal. 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 Hx of hemorrhagic shock from bleeding abdominal wounds - presenting with acute worsening of pain and bleeding from wounds. Denies purulent discharge from wounds. - Leukocytosis + Elevated CRP 22.1 and ESR 133 + Elevated lactate on presentation; concerned for infected wounds/soft tissue infection. Started on IV vanc/zosyn, later d/janie due to low infectious concern (04/21-04/25) - On admission, acute rise in lactate in light of acute significant bleeding and drop in HGB (8.6 from 9.5 in ED) likely secondary to hypovolemia, also missed dialysis - CT venogram on 10/19/24 with b/l brachiocephalic stenosis w b/l subclavian vein occlusion, extensive venous collaterals - 10/22/24: Venoplasty completed by IR, removed L femoral TDC, exchanged R TDC - blood cultures 04/20/25 with NG5D x2 - AMET for hypotension 80/50, s/p 500 cc LR bolus, scheduled midodrine with improved repeat 102/63 - lactate 2.4 from 1.7, improved from 3.2 at admission. Completed 5d course of IV vanc/zosyn (7/24-04/25) - CT chest and CT A/P 04/22/25 with no drainable fluid collections, extensive chest collaterals - nutritional workup: B12 elevated, folate wnl, iron low 26, TIBC low 137, trans sat wnl, low vit D 22.9, zinc 69 wnl, low vit A 0.10 - 04/29/25: Venoplasty: completed by IR. 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 Right upper chest tunneled dialysis catheter was exchanged over a wire for a new on; ready for use PLAN: - IR consulted: > venoplasty 04/29/2025 - no complications - Derm consulted: > ongoing nutritional workup > discontinued clobetasol 0.05% ointment BID per derm, lesion over R scapula, try to simulate tx of PG and assess response > [facility] D[facility] f/u outpatient - continue vitamin D supplement 5000 unit(s), ascorbic acid 500mg/day, vit B6 50mg/day, vit A 10,000 units/day - wound care team consulted, appreciate care - pain control: tylenol 650 mg q6h prn and oxycodone 10 mg po q6h PRN. > IV fent for dressing changes as needed - plastic surgery consulted: > no indication for surgical intervention at this time - Cautious fluid resuscitation in light of acute bleeding and ESRD anuric on HD #Supratherapeutic INR #CAD s/p CABG #Severe MS s/p mechanical MVR on coumadin #Paroxysmal Afib s/p multiple DCCV s/p Maze procedure + RADHA clip (07/2021) - atrial fibrillation and severe mitral stenosis s/p mechanical mitral valve replacement with On-x valve (INR goal 2.5-3.5), Maze procedure and RADHA clip on 08/21/2021. - Goal INR 2.5- 3.5; on warfarin 2.5 mg daily although patient not sure of dose, has been changed recently; last dose of warfarin Thursday 04/19 - INR elevated to 5.1 on admission, improved to 3.9 s/p 2u FFP 04/21 - possible etiology of supratherapeutic INR: warfarin dose (given patient not sure of home dose) vs malnutrition vs liver disease (less likely given AST/ALT wnl) - INR elevated again to 5.3, patient received po vitamin K 5 mg 04/25. Improved to 1.7 PLAN: - given subtherapeutic INR and no intervention by plastic surgery planned, continue bridging to warfarin > goal INR 2.5 - 3.5, given mechanical valve. - INR 1.9 on 05/05/25 - continue heparin gtt, bridge with warfarin (to give 10 mg today) - Daily INR - Follows with Dr. Moreno (cardiology in [place]) for mgmt of Coumadin, will need follow-up outpatient # Second-degree AV Block - Patient having multiple episodes of bradycardia in the hospital with low blood pressures - EKG (05/05/25) shows Second degree AV block, mobitz type 1 PLAN: - Consult cardiology team in the morning - Obtained magnesium levels, awaiting results #ESRD on HD via Right TDC #Chronic Hypotension #Secondary Hyperparathyroidism - iHD at [facility] through R. Tunneled HD catheter MWF - Last dialysis session Friday04/18/2025; missed Fri session because he presented to [facility] ED - anuric at baseline per patient - Serum P=9.7 - completed HD 04/21, now on MWF - PTH elevated 578, Ca 8.3 low PLAN: - nephrology consulted: > continue MWF HD schedule > continue calcitriol MWF - Continue Sensipar, renvela with meals - continue home Midodrine 20mg every 8 hours #Anemia of Chronic Disease/ESRD - Baseline hemoglobin 9-11 - iron studies 12/2024: iron 33, TIBC 156, Iron sat 21, ferritin 1327 - Hgb dropping iso bleeding wounds, as above. - received 1u pRBC 04/21, Hgb from 7.3 -> 7.7 post-transfusion - Hgb 6.9 on 04/22, s/p additional 2u pRBC with Hgb in ~8s PLAN: - Hgb goal >8, 8.4 this am - chronic wound mgmt, as above #Code status - Full # Diet - renal # VTE PPx - heparin gtt, bridge to warfarin # Dispo Planning - Pending clinical course, SW consulted for recent unemployment, c/f food insecurity These recommendations and plan are not final until co-signed by the attending physician Ana Daley MD. Giovanna Chowdhury, DO PGY-1 Neurology THERAPY NT Observed: 05/04/2025 5:04 PM Status: COMPLETED Source: [facility] HNO ID: [id number] Author: RENÉE MARTINES PT DPT Service: Physical Therapy Author Type: Physical Therapist Type: Therapy (PT/OT/Speech/Resp) Filed: 05/04/2025 17:04 Note Text: PHYSICAL THERAPY MISSED VISIT SERVICE DATE: 05/04/2025 SERVICE TIME: 1704 ROOM: [place] [address] Patient not seen due to Patient Not Available. Second attempt this date patient sleeping soundly and did not arouse to voice or tactile stimuli. PT to follow up with patient as able. SIGNATURE: Renée Martines PT, DPT PATIENT NAME: Elia Weston DATE: May 04, 2025 TIME: 5:04 PM CASE MANAGEM Observed: 05/04/2025 12:17 PM Status: COMPLETED Source: [facility] HNO ID: [id number] Author: MARIA T MARINA LSW Service: Care Management Author Type: Ppa Teacher Type: Care Mgt Progress Note Filed: 05/04/2025 12:19 Note Text: CARE MANAGEMENT PROGRESS NOTE SERVICE DATE: 05/04/2025 SERVICE TIME: 12:17 PM LOS: 13 days Post-Acute Discharge Planning Patient Goal(s): Be able to go home, General wellness [place] of Choice Explained: [place] of Choice Given: Yes Discharge Planning Participant(s): Patient Anticipated # of Days Until Discharge: (TBD) Transport at Discharge: Transportation Arrangements: Car Needs Prior to Discharge: Needs Prior to Discharge: To Be Determined Post-Acute Discharge Plan: Per prior CM, pt declined HC services. No PCP. This CM attempted to follow up at bedside; pt not available during attempt. Dialysis coordinator updated. SIGNATURE: CANDY Gilmore PATIENT NAME: Elia Weston DATE: May 04, 2025 TIME: 12:17 PM CONSULT PROG Observed: 05/04/2025 11:21 AM Status: COMPLETED Source: [facility] HNO ID: [id number] Author: KIMBERLY LYNN APRN.CNP Service: Wound Care Team Author Type: Nurse Practitioner Type: Consult Progress Note Filed: 05/04/2025 11:22 Note Text: Wound Care Consult Team Assessment Note: PATIENT NAME: Elia Weston WCCT attempted to see patient to follow up on wounds today at 0926, patient is out of room at dialysis at this time. Will attempt to see again at a future date. Kimberly Lynn APRN.FLORAL ASSOCIATE THERAPY NT Observed: 05/04/2025 10:27 AM Status: COMPLETED Source: [facility] HNO ID: [id number] Author: RENÉE MARTINES PT, DPRolan Service: Physical Therapy Author Type: Physical Therapist Type: Therapy (PT/OT/Speech/Resp) Filed: 05/04/2025 11:25 Note Text: PHYSICAL THERAPY MISSED VISIT SERVICE DATE: 05/04/2025 SERVICE TIME: 1027 ROOM: [place] [address] (Q6-1 Hemodialysis) Patient not seen due to Test / Procedure SIGNATURE: Renée Martines PT, DPT PATIENT NAME: Elia Weston DATE: May 04, 2025 TIME: 10:27 AM CONSULT PROG Observed: 05/04/2025 10:22 AM Status: COMPLETED Source: [facility] HNO ID: [id number] Author: LUCILLE GOMEZ APRN.FLORAL ASSOCIATE Service: Nephrology Author Type: Nurse Practitioner Type: Consult Progress Note Filed: 05/04/2025 10:28 Note Text: CONSULT PROGRESS NOTE NEPHROLOGY Q6 SERVICE SERVICE DATE: 05/04/2025 SERVICE TIME: 10:23 AM SUBJECTIVE INTERVAL HISTORY: - ESRD Patient seen on dialysis, single evaluation. Orders confirmed and documented per LEONEL. On heparin gtt. INR today 1.9. plan dispo when therapeutic range. UOP unmeasured -Patient tolerating dialysis well -Denies any chest pain, shortness of breath or dizziness -Denies any nausea, vomiting, muscle aches or headaches MEDICATIONS: Current Facility-Administered Medications Medication Dose Route Frequency NaCl 0.9% iv flush bag 20 mL INTRAVENOUS PRN acetaminophen 650 mg tab(s) (TYLENOL) 650 mg ORAL q 6 H PRN aspirin 81 mg chewable tab(s) 81 mg ORAL DAILY midodrine 20 mg tab(s) (PROAMATINE) 20 mg ORAL q 8 H cinacalcet 60 mg tab(s) (SENSIPAR) 60 mg ORAL DAILY iv contrast (radiology procedure) INTRAVENOUS DIRECTED PRN sevelamer carbonate 800 mg tab(s) (RENVELA) 800 mg ORAL TID w MEALS oxyCODONE IR 10 mg tab(s) (ROXICODONE) 10 mg ORAL q 6 H PRN polyethylene glycol 3350 17 g packet 17 g ORAL DAILY calcitriol 1.5 mcg cap(s) (ROCALTROL) 1.5 mcg ORAL -WE- LORazepam 0.25 mg tab(s) (ATIVAN) 0.25 mg ORAL DAILY PRN heparin iv infusion 25,000 units in NaCl 0.45% 250 mL LOW DOSE/ACS NOMOGRAM 0-3,000 Units/hr INTRAVENOUS CONTINUOUS And heparin RATE CHANGE bolus 1,000-4,000 Units for subtherapeutic PTTAC results 1,000-4,000 Units INTRAVENOUS PRN fentaNYL 50 mcg/mL 25 mcg injection (SUBLIMAZE) 25 mcg INTRAVENOUS DAILY PRN warfarin order for discharge OTHER PRN ascorbic acid 500 mg chewable tab(s) 500 mg ORAL DAILY pyridoxine (vitamin B6) 50 mg tab(s) (VITAMIN B6) 50 mg ORAL DAILY warfarin 7.5 mg tab(s) (COUMADIN) 7.5 mg ORAL ONCE - WARFARIN vitamin A 10,000 Units cap(s) (AQUASOL A) 10,000 Units ORAL DAILY OBJECTIVE PHYSICAL EXAM: BP 95/61 Pulse 60 Temp 36.8 ?C (98.2 ?F) (Oral) Resp 18 Wt 115.9 kg (255 lb 8.2 oz) SpO2 99% BMI 36.99 kg/m? Intake/Output Summary (Last 24 hours) at 05/04/2025 1023 Last data filed at 05/03/2025 1817 Gross per 24 hour Intake 812 ml Output 1 ml Net 811 ml GENERAL: Awake, alert, in no acute distress SKIN: Warm and dry HEENT: Normocephalic, Atraumatic LUNGS: Normal respiratory effort. CARDIAC: RRR ABDOMEN: Soft, non-tender, non-distended. EXTREMITIES: +peripheral edema NEURO: AOx3, normal speech Vascular Access: Hemodialysis catheter location: Right Tunneled internal jugular. Exit site demonstrates: normal findings DATA: Diagnostic tests reviewed for today's visit: Recent Labs 05/04/25 0406 05/03/25 0628 05/02/25 0216 05/01/25 0453 04/30/25 1248 NA 136 136 136 137 136 K 5.0 4.3 5.1 4.8 4.8 CHLOR 93* 94* 93* 93* 92* CO2 24 26 23 27 25 BUN 34* 23 41* 31* 17 CREAT 7.02* 5.64* 8.39* 6.66* 5.21* GLUC 109* 72* 76 83 78 ANION 19* 16* 20* 17* 19* CA 7.7* 7.8* 7.5* 7.8* 8.6 P 4.6 4.0 6.0* 5.9* 4.9* Recent Labs 05/04/25 0405 05/03/25 0628 05/01/25 0453 WBC 5.69 6.05 5.61 HB 9.6* 8.3* 8.5* HCT 31.5* 27.4* 28.7* PLT 240 259 307 ASSESSMENT: Mr. 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 Labs on presentation significant for elevated lactic acid, leukocytosis, anemia and supratherapeutic INR. Of note, his previous admission 10/12/2024-11/02/2024 was also for pain and bleeding of the wounds/skin ulcers. Biopsy was consistent with reactive ischemic changes at the time without features of Polyderma Gangrenosum or calciphylaxis. Patient was admitted under general internal medicine team for further management. Nephrology consulted for ESR management. 1.ESRD History -Etiology: HTN Renal Biopsy 2006 renal failure, of undetermined etiology. 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 using an angioplasty balloon per IR 2.Electrolytes/acid-base: -Potassium controlled with DRYWALL SANDER -Sodium stable -acid/base stable 3.Hypertension/Volume Status: -BP stable - 131/96 on session. On midodrine -EDW 114 kg, pre-weigh today 119 kg? Bed weight with UF goal 2.5 L as tolerated -Hypervolemic on exam 4.Anemia of CKD: -hgb near ESRD goal -S/P RBC transfusions 04/22 -Iron Stores 04/04: Ferritin 653 Iron 25 TIBC 180 TSAT 14 -Avoid IV iron in the setting of infection 5.Secondary renal hyperparathyroidism: -Phos above goal 6.0 on binder -Calcium corrects stable on sensipar -PTH 578 PLAN: -IHD today x 4.5 hours, 2 K bath with UF goal 2.5 L -Next dialysis planned for Friday -Continue renvela and sensipar -ANABELLA when indicated -Continue midodrine Standard ESRD recommendations and precautions: - Strict IANDOs and Daily weight - Consider a RENAL Diet for HD patients - Fluid restriction < 1 L - Start Nephrocap or other renal multivitamin to replace water-soluble vitamins lost during dialysis - Avoid Lovenox, Demerol, Morphine, K-containing IVF, Mg- or Phos- containing enemas - Dose meds GFR 10 ml/min Outpatient dialysis disposition plan: contact [phone] and ask to speak with the director of front office as needed for assistance with post-discharge arrangements. Please DO NOT schedule patient for a nephrology follow up appointment. Kidney care will be provided by the primary data warehousing engineer at their dialysis unit upon hospital discharge. SIGNATURE: Lucille Goemz APRN.CNP PATIENT NAME: Elia Weston DATE: May 04, 2025 TIME: 10:23 AM PAGER: [phone] FOR AFTER HOUR CONCERNS BETWEEN 5PM - 7AM CONTACT ON-CALL NEPHROLOGY FELLOW [phone] Disclosures: Parts of the current progress note may have been copied from a previous note. PROGRESS Observed: 05/04/2025 5:33 AM Status: COMPLETED Source: [facility] HNO ID: [id number] Author: ANA DALEY MD Service: General Internal Medicine Author Type: Resident Type: Progress Notes Filed: 05/04/2025 18:46 Note Text: Attestation signed by Ana Daley MD at 05/04/2025 6:46 PM [facility] STAFF PHYSICIAN NOTE OF PERSONAL INVOLVEMENT IN CARE I have reviewed the progress note obtained and documented by the resident and I personally participated in the mendoza components. I have discussed the case and management of the patient's care. The following comments revise or confirm relevant mendoza components of their note. Patient was seen and examined. No new complaints. Just completed dialysis Reports no bleeding from wounds. Pain controlled INR 1.9 today. 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 Bleeding resolved # Blood loss anemia from above s/p 1 pRBC (04/21) and 2 pRBC (04/22) with Anemia of chronic disease -Seen by dermatology. Patient declined repeat biopsy. Given infectious work up of his wounds has been negative, Dermatology recommended clobetasol 0.05% ointment to be applied to wound edge twice daily -significant pain during dressing changes, stared on Iv fentanyl while inpatient prior to dressing changes. -Vit C and Vit B6 oral supplementation given levels for both are low. 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 Follow INR. Redose coumadin today 7.5 mg -Per patient , has established parts delivery driver locally who monitors his INR closely and plans to follow up with same physician for INR check on discharge # Chronic hypotension, on home midodrine 20 mg TID DISPO: Once INR is therapeutic (Goal 2.5-3.5) Discussed plan of care with patient. SIGNATURE: Ana Daley MD, [facility] DATE of SERVICE: May 04, 2025 INPATIENT INTERNAL MEDICINE PROGRESS NOTE PATIENT NAME: Elia Weston ; AGE: 6 1980; 45 year old HOSPITAL ROOM: G090 [id number] DATE OF SERVICE: 05/04/2025 ATTENDING PHYSICIAN: Ana Daley MD TIME OF SERVICE: AM Rounds SERVICE: Inpatient Medicine service Admit Date: 04/20/2025 Length of Stay: 13 Reason for Admission: Bleeding from wounds. Brief Summary Mr. 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 Patient was hospitalized in September 2024 to October 2024 for pain and bleeding from the wounds. Patient was seen by dermatology back then for his skin ulcers. Biopsy performed and was most c/w reactive ischemic changes without features of Pyoderma Gangrenosum or Calciphylaxis. Now, plan for venoplasty with IR pending improvement in INR. Dermatology consulted, plan for starting topical steroid on wound edge. Interval Events/Subjective: - No acute events overnight, slept well overnight. - This morning, patient lying in bed comfortable. Denies pain, shortness of breath, or pain on his chest wounds. No new concerns. - Vitals: Afebrile, HR 49-118, 62 this am, low-stable SBP 72-95 with MAPs 53-77, satting well on RA and CPAP. - Warfain 7.5mg given yesterday - PRN: oxy 10mg q6h x2, IV fent x1 past 24 hours - BM: 1 bowel movement for past 24 hours Objective: BP: 95/50 Temp: 36.8 ?C (98.2 ?F) Temp src: Oral Pulse: 62 Resp: 18 O2 Therapy: Continuous Positive Airway Pressure SpO2: 99 % Physical Exam GENERAL: Alert, no distress, cooperative SKIN: Chest wounds with dressing on them. Clean, dry, and intact. No signs of bleeding. Previously seen: R and L anterior and posterior chest wounds - chronic, bleeding, no purulent discharge. Right flank/back chronic wounds. Images scanned in chart. LUNGS: Lungs clear to auscultation bilaterally, no wheezes or crackles. CARDIAC: Regular rate and rhythm. No murmurs. ABDOMEN: Distended, non-tender. EXTREMITIES: No pitting edema on lower extremities bilaterally. Pertinent Labs: INR: 1.9 (goal of 2.5-3.5), BUN: 34, Cr: 7.02, Hgb: 9.6. Due for dialysis today. Lines, Drains, and Airways Line Duration Peripheral 04/26/25 2[facility] Right Forearm 20 Gauge 7 days Dialysis / Apheresis Double Lumen 04/29/25 1005 [facility] Tunneled Right Internal Jugular 4 days Active Hospital Problems Diagnosis Bleeding from open wound of chest wall, right, initial encounter Vitamin C deficiency Vitamin A deficiency Vitamin B6 deficiency Skin ulcers (HCC) Hypervolemia Difficult intravenous access Consult IR prior to removal of any catheters Bleeding from wound Open chest wound, right, sequela Unknown etiology Open chest wound, left, sequela Unknown etiology Back wound, unspecified laterality, sequela - Mid Back - Unknown Etiology - POA - Right Upper Back - Unknown Etiology - POA Open wound of abdomen Unknown Etiology Open wound of right thigh Unknown Etiology Wounds, multiple Anemia due to multiple mechanisms Hemorrhage from open wound of left chest wall Ulcers, venous (HCC) Status post Maze operation for atrial fibrillation 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 Acquired hypothyroidism Adjustment disorder with depressed mood Acute on chronic blood loss anemia Supratherapeutic INR S/P MVR (mitral valve replacement) History: MR Assessment: 08/21/2021: OnX + posterior mitral annulus patch with bovine pericardial + Left CryoMAZE + Left atrial appendage ligation Plan: ASA, start Coumadin 08/24, hep gtt Vitamin D deficiency History of non-ST elevation myocardial infarction (NSTEMI) ESRD on hemodialysis (HCC) Atrial fibrillation (HCC) on Coumadin and Amiodarone Secondary hyperparathyroidism, renal (HCC) Reportedly elevated PTH High PhxCa ratio in the past Now with worsening metastatic calcifications Will recheck Ca, PO4, Vitamin D, and PTH Continue phosphate binders If PTH elevated, ? Need to calcimemtics to suppress the PTH Will discuss further with the nephrology team MEDICATIONS Current Facility-Administered Medications Medication Dose Route Frequency NaCl 0.9% iv flush bag 20 mL INTRAVENOUS PRN acetaminophen 650 mg tab(s) (TYLENOL) 650 mg ORAL q 6 H PRN aspirin 81 mg chewable tab(s) 81 mg ORAL DAILY midodrine 20 mg tab(s) (PROAMATINE) 20 mg ORAL q 8 H cinacalcet 60 mg tab(s) (SENSIPAR) 60 mg ORAL DAILY iv contrast (radiology procedure) INTRAVENOUS DIRECTED PRN sevelamer carbonate 800 mg tab(s) (RENVELA) 800 mg ORAL TID w MEALS oxyCODONE IR 10 mg tab(s) (ROXICODONE) 10 mg ORAL q 6 H PRN clobetasol topical ointment 0.05% (TEMOVATE) TOPICAL BID polyethylene glycol 3350 17 g packet 17 g ORAL DAILY calcitriol 1.5 mcg cap(s) (ROCALTROL) 1.5 mcg ORAL MO-WE- LORazepam 0.25 mg tab(s) (ATIVAN) 0.25 mg ORAL DAILY PRN heparin iv infusion 25,000 units in NaCl 0.45% 250 mL LOW DOSE/ACS NOMOGRAM 0-3,000 Units/hr INTRAVENOUS CONTINUOUS And heparin RATE CHANGE bolus 1,000-4,000 Units for subtherapeutic PTTAC results 1,000-4,000 Units INTRAVENOUS PRN fentaNYL 50 mcg/mL 25 mcg injection (SUBLIMAZE) 25 mcg INTRAVENOUS DAILY PRN warfarin order for discharge OTHER PRN ascorbic acid 500 mg chewable tab(s) 500 mg ORAL DAILY pyridoxine (vitamin B6) 50 mg tab(s) (VITAMIN B6) 50 mg ORAL DAILY Labs: Glucose control: CBC: Recent Labs 05/04/25 0405 05/03/25 0628 05/01/25 0453 04/30/25 1248 04/29/25 1434 04/28/25 0145 WBC 5.69 6.05 5.61 5.45 5.75 6.07 HB 9.6* 8.3* 8.5* 9.7* 9.7* 8.7* HCT 31.5* 27.4* 28.7* 32.5* 32.5* 29.3* PLT 240 259 307 343 298 326 MCV 94.3 92.6 94.1 91.8 92.6 93.0 RDWCV 20.0* 19.8* 19.5* 19.4* 19.2* 19.1* COAG: Recent Labs 05/04/25 0406 05/03/25 0628 05/02/25 1720 05/02/25 0922 05/02/25 0216 05/01/25201005/01/25 1312 05/01/25 0453 04/30/25200404/30/25 1248 04/29/25 1434 04/28/25 1219 04/28/25 0145 APTT 55.8* 58.5* 60.0* 62.6* 44.1* 57.7* 46.1* 37.4* < > 36.8* -- < > 43.5* INR 1.9* 1.7* -- -- 1.8* -- -- 1.8* -- 2.2* 1.6* -- 1.4* < > = values in this interval not displayed. BMP: Recent Labs 05/04/25 0406 05/03/25 0628 05/02/25 0216 05/01/25 0453 04/30/25 1248 04/29/25 1434 04/28/25 0145 GLUC 109* 72* 76 83 78 110* 75 NA 136 136 136 137 136 135* 136 K 5.0 4.3 5.1 4.8 4.8 5.2* 4.8 CHLOR 93* 94* 93* 93* 92* 95* 95* CO2 24 26 23 27 25 22 22 ANION 19* 16* 20* 17* 19* 18* 19* BUN 34* 23 41* 31* 17 26* 14 CREAT 7.02* 5.64* 8.39* 6.66* 5.21* 7.29* 4.74* CHEM: Recent Labs 05/04/25 0406 05/03/25 0628 05/02/256 05/01/25 0453 04/30/25 1248 04/29/25 1434 04/28/25 0145 ALB 3.7* 3.4* 3.5* 3.6* 3.8* 3.5* 3.2* CA 7.7* 7.8* 7.5* 7.8* 8.6 7.8* 8.3* HEPATIC: No results for input(s): ALKPHOS, ALT, AST, TBILI, LIPASE in the last 168 hours. URINALYSIS:No results for input(s): PH, SPGR, UGLUC, UBILI, UKET, UHB, UPROT, UROBIL, UWBC, SSA in the last 168 hours. Invalid input(s): NITR CARDIAC: No results for input(s): CKTEST, CKMB, CKMBP, TROPT, PBNP in the last 168 hours. MICROBIOLOGY: Positive Micro-30 Days No results found for the last 720 hours. Imaging: CXR 04/21/25: TDC with tip in RA. Increase of perihilar and basilar opacities with volume loss, suggesting atelectasis, possible underlying edema/inflammation. Blunting of L CP angle, which may represent tiny effusion or pleural thickening. CT A/P 04/22/25: No abdominal or pelvic subcutaneous fluid collection of gas. Redemonstrated diffuse subcutaneous extensive abdominal wall collaterals, similar to prior CTA 10/17/2024. CT chest 04/22/25: extensive chest wall collaterals, few areas of skin ulceration, no areas of drainable fluid collection. Findings consistent with central venous stenoses. Few patchy groundglass opacities, may be related to mild pulm edema Assessment AND Plan: Elia Westno is a 45 year old male with extensive PMH, significant for ESRD on HD (MWF) last session 04/18 (skipped Friday since he came to ED), CAD s/p CABG, severe MS s/p MVR on Warfarin, pAfib s/p maze procedure and RADHA clip and chronic chest/abdominal/back wounds (3 years) likely secondary to ischemia in context of SVC syndrome and multiple thrombosis, who presented to the ED with 1-day of left chronic chest wound bleeding. Admitted for management of bleeding, and on transfer to [facility], patient began to have significant bleeding from R chest wound. Continuous pressure was applied and bleeding stopped. Now s/p FFP and RBC transfusions as appropriate. Initially started on Vanc/Zosyn given elevated ESR/CRP and WBC, no infectious concern on further imaging with improved lactate WBC, so abx were stopped. Dermatology and wound care consulted. IR consulted, planning for venoplasty given INR reversal. 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 Hx of hemorrhagic shock from bleeding abdominal wounds - presenting with acute worsening of pain and bleeding from wounds. Denies purulent discharge from wounds. - Leukocytosis + Elevated CRP 22.1 and ESR 133 + Elevated lactate on presentation; concerned for infected wounds/soft tissue infection. Started on IV vanc/zosyn, later d/janie due to low infectious concern (04/21-04/25) - On admission, acute rise in lactate in light of acute significant bleeding and drop in HGB (8.6 from 9.5 in ED) likely secondary to hypovolemia, also missed dialysis - CT venogram on 10/19/24 with b/l brachiocephalic stenosis w b/l subclavian vein occlusion, extensive venous collaterals - 10/22/24: Venoplasty completed by IR, removed L femoral TDC, exchanged R TDC - blood cultures 04/20/25 with NG5D x2 - AMET for hypotension 80/50, s/p 500 cc LR bolus, scheduled midodrine with improved repeat 102/63 - lactate 2.4 from 1.7, improved from 3.2 at admission. Completed 5d course of IV vanc/zosyn (04/21-04/25) - CT chest and CT A/P 04/22/25 with no drainable fluid collections, extensive chest collaterals - nutritional workup: B12 elevated, folate wnl, iron low 26, TIBC low 137, trans sat wnl, low vit D 22.9, zinc 69 wnl, low vit A 0.10 - 04/29/25: Venoplasty: completed by IR. 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 Right upper chest tunneled dialysis catheter was exchanged over a wire for a new on; ready for use PLAN: - IR consulted: > venoplasty 04/29/2025 - no complications - Derm consulted: > ongoing nutritional workup > discontinued clobetasol 0.05% ointment BID per derm, lesion over R scapula, try to simulate tx of PG and assess response > [facility] f/u outpatient - continue vitamin D supplement 5000 unit(s), ascorbic acid 500mg/day, vit B6 50mg/day - wound care team consulted, appreciate care - pain control: tylenol 650 mg q6h prn and oxycodone 10 mg po q6h PRN. > IV fent for dressing changes as needed - plastic surgery consulted: > no indication for surgical intervention at this time - Cautious fluid resuscitation in light of acute bleeding and ESRD anuric on HD #Supratherapeutic INR #CAD s/p CABG #Severe MS s/p mechanical MVR on coumadin #Paroxysmal Afib s/p multiple DCCV s/p Maze procedure + RADHA clip (07/2021) - atrial fibrillation and severe mitral stenosis s/p mechanical mitral valve replacement with On-x valve (INR goal 2.5-3.5), Maze procedure and RADHA clip on 08/21/2021. - Goal INR 2.5- 3.5; on warfarin 2.5 mg daily although patient not sure of dose, has been changed recently; last dose of warfarin Thursday 04/19 - INR elevated to 5.1 on admission, improved to 3.9 s/p 2u FFP 04/21 - possible etiology of supratherapeutic INR: warfarin dose (given patient not sure of home dose) vs malnutrition vs liver disease (less likely given AST/ALT wnl) - INR elevated again to 5.3, patient received po vitamin K 5 mg 04/25. Improved to 1.7 PLAN: - given subtherapeutic INR and no intervention by plastic surgery planned, continue bridging to warfarin > goal INR 2.5 - 3.5, given mechanical valve. - INR 1.9 on 05/04/25 - continue heparin gtt, bridge with warfarin (to give 7.5 mg today) - Daily INR - Follows with Dr. Moreno (cardiology in [place]) for mgmt of Coumadin, will need follow-up outpatient #ESRD on HD via Right TDC #Chronic Hypotension #Secondary Hyperparathyroidism - iHD at [facility] through R. Tunneled HD catheter MWF - Last dialysis session Friday04/18/2025; missed Fri session because he presented to [facility] ED - anuric at baseline per patient - Serum P=9.7 - completed HD 04/21, now on MWF - PTH elevated 578, Ca 8.3 low PLAN: - nephrology consulted: > continue MWF HD schedule > continue calcitriol MWF - Continue Sensipar, renvela with meals - continue home Midodrine 20mg daily #Anemia of Chronic Disease/ESRD - Baseline hemoglobin 9-11 - iron studies 12/2024: iron 33, TIBC 156, Iron sat 21, ferritin 1327 - Hgb dropping iso bleeding wounds, as above. - received 1u pRBC 7/24, Hgb from 7.3 -> 7.7 post-transfusion - Hgb 6.9 on 04/22, s/p additional 2u pRBC with Hgb in ~8s PLAN: - Hgb goal >8, 9.6 this am - chronic wound mgmt, as above #Code status - Full # Diet - renal # VTE PPx - heparin gtt, bridge to warfarin # Dispo Planning - Pending clinical course, SW consulted for recent unemployment, c/f food insecurity These recommendations and plan are not final until co-signed by the attending physician Ana Daley MD. Giovanna Chowdhury, DO PGY-1 Neurology PT PNL PPP Collected: 05/04/2025 4:06 AM Status: F Source: [facility] Order Comment: Specimen Type : BLOOD SPECIMEN Ordering Facility: [facility] Address: [address] [place] [address] TYPE CODE TESTS RESULT OUT OF RANGE REFERENCE UNITS LAB 5902-2(LOINC) Prothrombin time 19.3 High 9.7-13.0 sec LAB 6301-6(LOINC) INR PPP 1.9 High 0.9-1.3 Result Comment: Vitamin K An tagonist (VKA) Therapeutic Range: INR 2 to 3 (Target INR of 2.5) Note: For patients treated with VKA drugs, such as warfarin, the [place] [employer] 2012 Guideline recommends a therapeutic INR range of 2 to 3 (target INR of 2.5). This recommendation includes high-risk patients with antiphospholipid syndrome with previous arterial or venous thromboembolism, current-generation mechanical or bioprosthetic aortic heart valve replacement. Note: Patients with mechanical aortic valve replacement and additional risk factors for thromboembolic events (atrial fibrillation, previous thromboembolism, LV dysfunction, hypercoagulable conditions) or an older generation mechanical AVR (i.e., ball in-Cage) or any mechanical MVR should have a INR therapeutic range of 2.5 to 3.5 (target INR of 3). Ranjit GH, et al. Chest 2012, 141:7S-47S Kevin RUSHING et al. JAC 2017, 70: 252-289 Performed By: #### 11610-2, PTTAC #### [facility] CLIA [id number] [address] [place], [place] [id number] [facility] PTT, ANTICOAGULANT THERAPY Collected: 0 05/04/2025 4:06 AM Status: F Source: [facility] Order Comment: Specimen Type : BLOOD SPECIMEN Ordering Facility: [facility] Address: [address] [place] [address] TYPE CODE TESTS RESULT OUT OF RANGE REFERENCE UNITS LAB 17874-6(LOINC) aPTT PPP 55.8 High 23.0-32.4 sec Performed By: #### 34476-3, PTTAC #### [facility] CLIA [id number] [address] [place], [place] [id number] [facility] RENAL FUNC 2000 PNL SERPL Collected: 4:06 AM Status: F Source: [facility] Comment: Specimen Type : BLOOD SPECIMEN Ordering Facility: [facility] Address: [address] [place] [address] TYPE CODE TESTS RESULT OUT OF RANGE REFERENCE UNITS LAB 1751-7(LOINC) Albumin SerPl-mCnc 3.7 Low 3.9-4.9 g/dL LAB 93326-4(LOINC) Calcium SerPl-mCnc 7.7 Low 8.5-10.2 mg/dL LAB 2777-1(LOINC) Phosphate SerPl-mCnc 4.6 2.7-4.8 mg/dL LAB 2345-7(LOINC) Glucose SerPl-mCnc 109 High 74-99 mg/dL Result Comment: The [place] Diabetes Association (ADA) provides guidance for cutoff values for fasting glucose and random glucose. The ADA defines fasting as no caloric intake for at least 8 hours. Fasting plasma glucose results between 100 to 125 mg/dL indicate increased risk for diabetes (prediabetes). Fasting plasma glucose results greater than or equal to 126 mg/dL meet the criteria for diagnosis of diabetes. In the absence of unequivocal hyperglycemia, results should be confirmed by repeat testing. In a patient with classic symptoms of hyperglycemia or hyperglycemic crisis, random plasma glucose results greater than or equal to 200 mg/dL meet the criteria for diagnosis of diabetes. Reference: Standards of Medical Care in Diabetes 2016, [place] Diabetes Association. Diabetes Care. 2016.39(Suppl 1). LAB 3094-0(LOINC) BUN SerPl-mCnc 34 High 9-24 mg/dL LAB 2160-0(LOINC) Creat SerPl-mCnc 7.02 High 0.73-1.22 mg/dL LAB 2951-2(LOINC) Sodium SerPl-sCnc 136 136-144 mmol/L LAB 2823-3(LOINC) Potassium SerPl-sCnc 5.0 3.7-5.1 mmol/L LAB 2075-0(LOINC) Chloride SerPl-sCnc 93 Low 98-107 mmol/L LAB 2027-9(LOINC) CO2 SerPl-sCnc 24 22-30 mmol/L LAB 31400-0(LOINC) Anion Gap SerPl-sCnc 19 High 8-15 mmol/L LAB 24278-2(LOINC) eGFRcr SerPlBld CKD-EPI 2020 9 Low >=60 mL/min/1. 73m??? Result Comment: Estimated Gl omerular Filtration Rate (eGFR) is calculated using the 2020 CKD-EPI creatinine equation. This equation utilizes serum creatinine, sex, and age as parameters. The creatinine assay has traceable calibration to isotope dilution-mass spectrometry. Refer to KDIGO guidelines for clinical interpretation. In patients with unstable renal function, e.g. those with acute kidney injury, the eGFR may not accurately reflect actual GFR. Performed By: #### 84331-1 # ### [facility] CLIA [id number] [address] [place] [address] [place] CBC PNL BLD AUTO Collected: 5 4:05 AM Status: F Source: [facility] Order Comment: Specimen Type : BLOOD SPECIMEN Ordering Facility: [facility] Address: [address] [place] [address] TYPE CODE TESTS RESULT OUT OF RANGE REFERENCE UNITS LAB 6690-2(LOINC) WBC # Bld Auto 5.69 3.70-11.00 k/uL LAB 789-8(LOINC) RBC # Bld Auto 3.34 Low 4.20-6.00 m/uL LAB 718-7(LOINC) Hgb Bld-mCnc 9.6 Low 13.0-17.0 g/dL LAB 4544-3(LOINC) Hct VFr Bld Auto 31.5 Low 39.0-51.0 % LAB 787-2(LOINC) MCV RBC Auto 94.3 80.0-100.0 fL LAB 785-6(LOINC) MCH RBC Qn Auto 28.7 26.0-34.0 pg LAB 786-4(LOINC) MCHC RBC Auto-mCnc 30.5 30.5-36.0 g/dL LAB 67349-8(LOINC) RDW RBC-Rto 20.0 High 11.5-15.0 % LAB 777-3(LOINC) Platelet # Bld Auto 240 150-400 k/uL LAB 82737-8(LOINC) PMV Bld Auto 12.0 9.0-12.7 fL LAB 771-6(LOINC) nRBC # Bld Auto <0.01 <0.01 k/uL Performed By: #### 83189-3 # ### [facility] CLIA [id number] [address] [place] [address] THERAPY NT Observed: 05/03/2025 4:13 PM Status: COMPLETED Source: [facility] HNO ID: [id number] Author: RENÉE MARTINES, PT, DPT Service: Physical Therapy Author Type: Physical Therapist Type: Therapy (PT/OT/Speech/Resp) Filed: 05/03/2025 17:33 Note Text: Physical Therapy Treatment Summary SERVICE DATE: 05/03/2025 SERVICE TIME: 1534 to 1613 ROOM: [place] [address] PT 6 Clicks Score: 17 DISCHARGE RECOMMENDATIONS: Home PT - patient may progress to safe discharge home with OPPT pending progress while in house. 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 Has been sleeping in recliner 2/2 to pain. (+) driving SUBJECTIVE Patient pleasant and agreeable to PT. THERAPY DIAGNOSIS Reduced mobility-other, Muscle Weakness (generalized), General symptoms and signs-other TREATMENT INTERVENTIONS Therapeutic Activity (84082), Gait Training (52020) Timed Code Treatment (minutes): 38 Skilled Treatment Time (minutes): 39 TRAINING AND EDUCATION PROVIDED Anatomy and Impact on Deficits, Assistive Device Use, Disease Specific Education, Discharge Planning, Energy Conservation, Falls Prevention, Gait Pattern, Reduction of Deviations, Home Safety, Standing Balance, Transfers, Treatment Protocol, Pain Neuroscience, Patient Exercise/Therapy Program Support Needs THERAPEUTIC SKILLS USED Activity Dosing, Assessment of Tolerance Including Vitals Response to Activity, Cues for Sequencing/Proper Technique for Activity, Cuing Tactile, Cuing Verbal, Management of Critical Lines, Tubes and/or Drains, Movement Facilitation, Physical Assist, Postural Alignment Correction, Proprioceptive Input, Task Analysis Learning, Teach-Back for Education FUNCTIONAL STATUS Bed Mobility Supine To Sit: Contact Guard Assistance (with HOB elevation) Scooting: Contact Guard Assistance Transfers Sit To Stand: Contact Guard Assistance Stand To Sit: Contact Guard Assistance Bed to Chair Contact Guard Assistance Bed To Chair Transfer Type: Stepping Bed To Chair Transfer Equipment: (IV pole) Gait Contact Guard Assistance Gait Device: IV Pole Gait Distance (feet): 70/90 with seated rest break Stairs GOALS Patient will demonstrate progress with functional mobility to allow safe discharge to home with available support and/or physical assistance. Rehab Potential: Good ACUTE CARE TREATMENT PLAN PT Frequency: Per Next Session Date Treatment Interventions: Education, Self Care / Home Management, Energy Conservation Training, Joint Mobility, Strengthening, Functional Mobility Training, Balance Training, Neuromuscular Re-education Plan for Next Visit: Sit to Stand Transfers, Gait Training, Walker Training SIGNATURE: Renée Martines, PT, DPT PATIENT NAME: Elia Weston DATE: May 03, 2025 TIME: 4:13 PM CONSULT PROG Observed: 05/03/2025 1:33 PM Status: COMPLETED Source: [facility] HNO ID: [id number] Author: JARVIS SAUCEDO MD, PhD Service: Dermatology Author Type: Physician Type: Consult Progress Note Filed: 05/03/2025 18:48 Note Text: DERMATOLOGY HOSPITAL CONSULT SERVICE PROGRESS NOTE Interval Events - did not allow day nursing to change his dressings yesterday so did not see wounds as planned PHYSICAL EXAM BP 90/52 Pulse 118 Temp 36.7 ?C (98.1 ?F) (Oral) Resp 18 Wt 115.9 kg (255 lb 8.2 oz) SpO2 100% BMI 36.99 kg/m? GEN: Age appropriate Patient declines physical examination given pain with dressing changes photos in chart from 04/22/2025: - L chest with deep ulcer with granulation tissue at the periphery and hemorrhagic crust at the center. Worsening compared to photo from 12/04/24. - R chest with ulceration deeper than photo 09/06/24 - Back with scattered ulcerations with granulation tissue at base and hyperpigmented periphery. Possible rolled border. Hypopigmented cribriform scars with hyperpigmented periphery. Enlarged compared to photos from November 2024 and August 2024. - Abdomen with scattered ulcerations with granulation tissue at base and hyperpigmented periphery. Hypopigmented scars with hyperpigmented periphery. Improving compared to photos from August 2024. LABORATORY TESTS: DATA: IMAGING: No pertinent imaging LABS: - CBC without leukocytosis as of 05/02 - total Ca low - CRP elevated 22.1 - ESR elevated 133 - Blood cultures (04/20) - NGTD Vit B 12 >2,000 (high) Vit B6 low, 8.1 Vit c less than 5, Vit A low, 0.1 Folate, zinc WNL Vit D 22.9 (low) Iron low 26, TIBC low 137, Tsat WNL BIOPSY: Punch biopsy 10/15/24 FINAL DIAGNOSIS A. Skin, chest, punch biopsy: - Dermal fibrosis and reactive vascular proliferation, see comment. APF/dkm 10/18/2024 at 1513 EST Diagnosis Comment Histologic sections display a basket-weave to compact orthokeratotic stratum corneum with focal parakeratosis overlying a markedly acanthotic and mildly spongiotic epidermis. Within the dermis, there is a superficial and deep interstitial vascular and histiocytic proliferation with collagen fibrosis and elastic fiber disarray. There is a scant perivascular mixed infiltrate including lymphocytes, histiocytes, and neutrophils. Eosinophils are not readily identified. To further evaluate this specimen, immunohistochemical and special stains were performed and compared to appropriate controls. Gram, GMS, and AFB-Christiana stains are negative for evidence of infectious organisms. A Von Kossa stain is negative for evidence of intraluminal or dermal calcium deposition. In order to further evaluate the vascular proliferation, immunohistochemical staining is performed at the [facility] on block A1 with appropriate controls. Stains for CD31 and ERG highlight the vascular endothelial cells, showing that they are mostly small and thin-walled without significant nuclear enlargement or multilayering. The clinical history and photographs are reviewed. Overall, these features are those of dermal fibrosis and a reactive vascular proliferation. These findings could be consistent with reactive ischemic changes in the correct clinical context. Features of pyoderma gangrenosum calciphylaxis are not identified, although the subcutaneous adipose tissue is minimally sampled. Clinical correlation remains essential. 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 On admission, patient had leukocytosis with elevated CRP/ESR and elevated lactate. Patient is on IV antibiotics. Currently patient is afebrile and leukocytosis has resolved. No clinical signs of infection at this time. Punch biopsy 06/26/23 revealed ulcer with dermal fibrosis, vascular ectasia, and reactive vascular proliferation - overall nonspecific findings but could be related to chronic ischemia given patient's history and clinical morphology. Punch biopsy 10/15/24 showing dermal fibrosis and a reactive vascular proliferation which is most consistent with reactive ischemic changes in the correct clinical context. Features of pyoderma gangrenosum, calciphylaxis not identified. Tissue cultures no growth on bacterial culture and NGTD on fungal/AFB. Pt was treated with STS for a few months in 2022 for presumed calciphylaxis but this was never biopsy proven. Patient denies the presence of a preceding papule or pustule that progresses to ulceration quickly. He endorses the lesions start as hyperpigmentation and skin tears. Denies painful indurated plaques in areas of ulceration prior to onset. Clinically, initial presentation is not consistent with calciphylaxis. A few features of pyoderma gangrenosum are present, however prior biopsy is supportive of ischemic vasculopathy as likely trigger for non-healing ulcers. Pt remains afebrile without leukocytosis, low concern for infection. He reports improvement in prior wounds. Continue to favor that wounds are related to reactive ischemic changes given patient's co-morbidities (ESRD, HTN, vasculopathy). Discussed option to repeat biopsy with patient on 04/25 and he declined given that he has had numerous biopsies in the past. As his nutritional work up has shown multiple severe vitamin deficiencies (A, B1, C, D, Iron). Pt reports that he has been limiting his diet due to his recent diagnosis of gout. As his wounds aren't clinically very consistent with pyoderma gangrenosum would favor chronic wounds in the setting of poor wound healing. Discussed this with the patient and decided to stop clobetasol at this time. PLAN: - supplementation as appropriate for Vit C, A, B6, D, Iron deficiency - consider nutrition consult for diet education - Agree with wound care recommendations per WOC team - stop topical clobetasol - defer pain control to primary team but would consider pre-medication for wound dressing changes as he is reporting significant pain with these Patient discussed with attending printed circuit board assembler, Dr. Donald Beltran MD Dermatology PGY-3 05/03/2025 1:33 PM Please use consult pager [phone], Mon-Fri 8am-5pm. Please call adzing and boring machine operator for on-call resident/pager during all other hours. I agree with the Chief Complaint, ROS, and Past Histories independently gathered by the clinical application support consultant and the remaining scribed note accurately describes my personal service to the patient. Explained above nutritional deficiencies to patient. Will follow for interval skin changes as these are corrected. It is possible one or multiple deficiencies are playing a major role in the etiology of these recurrent wounds. Rest of plan above. I was physically present during the critical/mendoza portions of this encounter and during all procedures, and agree with the above evaluation, assessment, and treatment plan. I reviewed the patient's chart and discussed care with the patient and the other physicians involved. Jarvis Saucedo MD, PhD NUTRITION Observed: 05/03/2025 12:02 PM Status: COMPLETED Source: [facility] HNO ID: [id number] Author: NABILA CHARLES DTR Service: Nutrition Therapy Author Type: Tractor Driver Teamster Type: Nutrition Filed: 05/03/2025 14:07 Note Text: NUTRITION THERAPY CLERICAL ORDER FILLER NOTE SERVICE DATE: 05/03/2025 SERVICE TIME: 1202 Visit Type: Follow-Up Evaluation Goals Met: Met Plan of Care: Supplements: Boost Glucose Control Follow-Up: Tech Reassessment Nursing Admission Assessment Malnutrition Score: 0 Nutrition Intake: Diet Orders (From admission, onward) Start Ordered 04/30/25 1030 DIET RENAL START NOW Question: Renal Answer: 2400 MG K / 2400 MG NA 04/30/25 1029 04/27/25 1230 SUPPLEMENT/SNACK PROVIDED START NOW Question Answer Comment Supplement 1 (19 years and up) BOOST GLUCOSE CONTROL CHOCOLATE Supplement 1 Frequency TWICE DAILY WITH MEALS Supplement 2 NEPRO MIXED MARLOW Supplement 2 Frequency BREAKFAST 04/27/25 1227 Average Daily Calorie Intake (kcal): 1133 kcal Average Daily Protein Intake (gm): 66 gm Average intake over: 3 days Average Supplement Intake (kcal): 380 kcal Average Supplement Intake (gm): 32 gm Average supplement intake over: 3 days Appetite: Good (The patient stated that he has been eating well) GI Symptoms: None Anthropometrics: Body mass index is 36.99 kg/m?. Weight Change: Stable MNT Billing: $ Routine Care : 1 unit SIGNATURE: Nabila Charles DTR PATIENT NAME: Elia Weston DATE: May 03, 2025 TIME: 2:07 PM THERAPY NT Observed: 05/03/2025 11:24 AM Status: COMPLETED Source: [facility] ID: [id number] Author: RENÉE MARTINES PT, DPT Service: Physical Therapy Author Type: Physical Therapist Type: Therapy (PT/OT/Speech/Resp) Filed: 05/03/2025 11:25 Note Text: PHYSICAL THERAPY MISSED VISIT SERVICE DATE: 05/03/2025 SERVICE TIME: 1124 ROOM: [place] [address] Patient not seen due to Patient Not Available - patient sleeping soundly with c-pap on and did not arouse to verbal or tactile stimuli. SIGNATURE: Renée Martines PT, DPT PATIENT NAME: Elia Weston DATE: May 03, 2025 TIME: 11:24 AM PT PNL PPP Collected: 05/03/2025 6:28 AM Status: F Source: [facility] Order Comment: Specimen Type : BLOOD SPECIMEN Ordering Facility: [facility] Address: [address] [place] [address] TYPE CODE TESTS RESULT OUT OF RANGE REFERENCE UNITS LAB 5902-2(LOINC) Prothrombin time 18.1 High 9.7-13.0 sec LAB 6301-6(LOINC) INR PPP 1.7 High 0.9-1.3 Result Comment: Vitamin K An tagonist (VKA) Therapeutic Range: INR 2 to 3 (Target INR of 2.5) Note: For patients treated with VKA drugs, such as warfarin, the [place] [employer] 2012 Guideline recommends a therapeutic INR range of 2 to 3 (target INR of 2.5). This recommendation includes high-risk patients with antiphospholipid syndrome with previous arterial or venous thromboembolism, current-generation mechanical or bioprosthetic aortic heart valve replacement. Note: Patients with mechanical aortic valve replacement and additional risk factors for thromboembolic events (atrial fibrillation, previous thromboembolism, LV dysfunction, hypercoagulable conditions) or an older generation mechanical AVR (i.e., ball in-Cage) or any mechanical MVR should have a INR therapeutic range of 2.5 to 3.5 (target INR of 3). Ranjit GH, et al. Chest 2012, 141:7S-47S Kevin RA, et al. [facility] 2017, 70: 252-289 Performed By: #### PTTAC, 34 528-0 #### [facility] CLIA [id number] [address] [place], [place] [address] [place] [id number] [place] PTT, ANTICOAGULANT THERAPY Collected: 0 05/03/2025 6:28 AM Status: F Source: [facility] Order Comment: Specimen Type : BLOOD SPECIMEN Ordering Facility: [facility] Address: [address] [place] [address] TYPE CODE TESTS RESULT OUT OF RANGE REFERENCE UNITS LAB 70601-5(LOINC) aPTT PPP 58.5 High 23.0-32.4 sec Performed By: #### PTTAC, 34 528-0 #### [facility] CLIA [id number] [address] [place], [place] [id number] [place] CBC PNL BLD AUTO Collected: 6:28 AM Status: F Source: [facility] Order Comment: Specimen Type : BLOOD SPECIMEN Ordering Facility: [facility] Address: [address] [place] [address] TYPE CODE TESTS RESULT OUT OF RANGE REFERENCE UNITS LAB 6690-2(LOINC) WBC # Bld Auto 6.05 3.70-11.00 k/uL LAB 789-8(LOINC) RBC # Bld Auto 2.96 Low 4.20-6.00 m/uL LAB 718-7(LOINC) Hgb Bld-mCnc 8.3 Low 13.0-17.0 g/dL LAB 4544-3(LOINC) Hct VFr Bld Auto 27.4 Low 39.0-51.0 % LAB 787-2(LOINC) MCV RBC Auto 92.6 80.0-100.0 fL LAB 785-6(LOINC) MCH RBC Qn Auto 28.0 26.0-34.0 pg LAB 786-4(LOINC) MCHC RBC Auto-mCnc 30.3 Low 30.5-36.0 g/dL LAB 88958-9(LOINC) RDW RBC-Rto 19.8 High 11.5-15.0 % LAB 777-3(LOINC) Platelet # Bld Auto 259 150-400 k/uL LAB 33357-8(LOINC) PMV Bld Auto 11.5 9.0-12.7 fL LAB 771-6(LOINC) nRBC # Bld Auto <0.01 <0.01 k/uL Performed By: #### 96266-9 # ### [facility] CLIA [id number] [address] [place] [address] [place] RENAL FUNC 2000 PNL SERPL Collected: 6:28 AM Status: F Source: [facility] Order Comment: Specimen Type : BLOOD SPECIMEN Ordering Facility: [facility] Address: [address] [place] [address] TYPE CODE TESTS RESULT OUT OF RANGE REFERENCE UNITS LAB 1751-7(LOINC) Albumin SerPl-mCnc 3.4 Low 3.9-4.9 g/dL LAB 96342-9(LOINC) Calcium SerPl-mCnc 7.8 Low 8.5-10.2 mg/dL LAB 2777-1(LOINC) Phosphate SerPl-mCnc 4.0 2.7-4.8 mg/dL Result Comment: Result reche cked. LAB 2345-7(LOINC) Glucose SerPl-mCnc 72 Low 74-99 mg/dL Result Comment: The [place] Diabetes Association (ADA) provides guidance for cutoff values for fasting glucose and random glucose. The ADA defines fasting as no caloric intake for at least 8 hours. Fasting plasma glucose results between 100 to 125 mg/dL indicate increased risk for diabetes (prediabetes). Fasting plasma glucose results greater than or equal to 126 mg/dL meet the criteria for diagnosis of diabetes. In the absence of unequivocal hyperglycemia, results should be confirmed by repeat testing. In a patient with classic symptoms of hyperglycemia or hyperglycemic crisis, random plasma glucose results greater than or equal to 200 mg/dL meet the criteria for diagnosis of diabetes. Reference: Standards of Medical Care in Diabetes 2016, [place] Diabetes Association. Diabetes Care. 2016.39(Suppl 1). LAB 3094-0(LOINC) BUN SerPl-mCnc 23 9-24 mg/dL LAB 2160-0(LOINC) Creat SerPl-mCnc 5.64 High 0.73-1.22 mg/dL LAB 2951-2(LOINC) Sodium SerPl-sCnc 136 136-144 mmol/L LAB 2823-3(LOINC) Potassium SerPl-sCnc 4.3 3.7-5.1 mmol/L LAB 2075-0(LOINC) Chloride SerPl-sCnc 94 Low 98-107 mmol/L LAB 2028-9(LOINC) CO2 SerPl-sCnc 26 22-30 mmol/L LAB 01438-4(LOINC) Anion Gap SerPl-sCnc 16 High 8-15 mmol/L LAB 93262-4(LOINC) eGFRcr SerPlBld CKD-EPI 2020 12 Low >=60 mL/min/1. 73m??? Result Comment: Estimated Gl omerular Filtration Rate (eGFR) is calculated using the 2020 CKD-EPI creatinine equation. This equation utilizes serum creatinine, sex, and age as parameters. The creatinine assay has traceable calibration to isotope dilution-mass spectrometry. Refer to KDIGO guidelines for clinical interpretation. In patients with unstable renal function, e.g. those with acute kidney injury, the eGFR may not accurately reflect actual GFR. Performed By: #### 41561-7 # ### [facility] CLIA [id number] [address] [place] [address] [place] [facility] PROGRESS Observed: 05/03/2025 5:31 AM Status: COMPLETED Source: [facility] HNO ID: [id number] Author: ANA DALEY MD Service: General Internal Medicine Author Type: Resident Type: Progress Notes Filed: 05/03/2025 18:38 Note Text: Attestation signed by Ana Daley MD at 05/03/2025 6:38 PM [facility] STAFF PHYSICIAN NOTE OF PERSONAL INVOLVEMENT IN CARE I have reviewed the progress note obtained and documented by the resident and I personally participated in the mendoza components. I have discussed the case and management of the patient's care. The following comments revise or confirm relevant mendoza components of their note. Patient was seen and examined. No new complaints. Sitting in chair. Reports derm and nursing to change dressing today. Reports no bleeding from wounds. Pain controlled INR 1.7 today. 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 Bleeding resolved # Blood loss anemia from above s/p 1 pRBC (04/21) and 2 pRBC (04/22) with Anemia of chronic disease -Seen by dermatology. Patient declined repeat biopsy. Given infectious work up of his wounds has been negative, Dermatology recommended clobetasol 0.05% ointment to be applied to wound edge twice daily -significant pain during dressing changes, stared on Iv fentanyl while inpatient prior to dressing changes. -Vit C and Vit B6 oral supplementation given levels for both are low. 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 Follow INR. Redose coumadin today 5 mg -Per patient , has established parts delivery driver locally who monitors his INR closely and plans to follow up with same physician for INR check on discharge # Chronic hypotension, on home midodrine 20 mg TID DISPO: Once INR is therapeutic (Goal 2.5-3.5) Discussed plan of care with patient. SIGNATURE: Ana Daley MD, FACP, [facility] DATE of SERVICE: May 03, 2025 INPATIENT INTERNAL MEDICINE PROGRESS NOTE PATIENT NAME: Elia Weston ; AGE: 6 1980; 45 year old HOSPITAL ROOM: [place] [address]/[id number] DATE OF SERVICE: 05/03/2025 ATTENDING PHYSICIAN: Ana Daley MD TIME OF SERVICE: AM Rounds SERVICE: Inpatient Medicine service Admit Date: 04/20/2025 Length of Stay: 12 Reason for Admission: Bleeding from wounds. Brief Summary Mr. 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 Patient was hospitalized in September 2024 to October 2024 for pain and bleeding from the wounds. Patient was seen by dermatology back then for his skin ulcers. Biopsy performed and was most c/w reactive ischemic changes without features of Pyoderma Gangrenosum or Calciphylaxis. Now, plan for venoplasty with IR pending improvement in INR. Dermatology consulted, plan for starting topical steroid on wound edge. Interval Events/Subjective: - No acute events overnight, slept well overnight. - This morning, patient lying in bed comfortable. Denies pain, shortness of breath, or pain on his chest wounds. No new concerns. - Vitals: Afebrile, HR 54, 45 this am, low-stable SBP 88-135 with MAPs 53-114, on RA and CPAP. - Warfain 6mg given yesterday - PRN: oxy 10mg q6h x3, no fent given past 48 hours - BM: 0 soft bowel movement for past 24 hours Objective: BP: 88/55 Temp: 36.4 ?C (97.5 ?F) Temp src: Axillary Pulse: 54 Resp: 18 O2 Therapy: Continuous Positive Airway Pressure SpO2: 100 % Physical Exam GENERAL: Alert, no distress, cooperative SKIN: Chest wounds with dressing on them. Clean, dry, and intact. No signs of bleeding. Previously seen: R and L anterior and posterior chest wounds - chronic, bleeding, no purulent discharge. Right flank/back chronic wounds. Images scanned in chart. LUNGS: Lungs clear to auscultation bilaterally, no wheezes or crackles. CARDIAC: Regular rate and rhythm. No murmurs. ABDOMEN: Distended, non-tender. EXTREMITIES: No pitting edema on lower extremities bilaterally. Pertinent Labs: INR: 1.7 (goal of 2.5-3.5), BUN: 23, Cr: 5.64, Hgb: 8.3 Lines, Drains, and Airways Line Duration Peripheral 04/26/25 2100 [facility] Right Forearm 20 Gauge 6 days Dialysis / Apheresis Double Lumen 04/29/25 1005 [facility] Tunneled Right Internal Jugular 3 days Active Hospital Problems Diagnosis Bleeding from open wound of chest wall, right, initial encounter Skin ulcers ([facility]) Hypervolemia Difficult intravenous access Consult IR prior to removal of any catheters Bleeding from wound Open chest wound, right, sequela Unknown etiology Open chest wound, left, sequela Unknown etiology Back wound, unspecified laterality, sequela - Mid Back - Unknown Etiology - POA - Right Upper Back - Unknown Etiology - POA Open wound of abdomen Unknown Etiology Open wound of right thigh Unknown Etiology Wounds, multiple Anemia due to multiple mechanisms Hemorrhage from open wound of left chest wall Ulcers, venous ([facility]) Status post Maze operation for atrial fibrillation 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 Acquired hypothyroidism Adjustment disorder with depressed mood Acute on chronic blood loss anemia Supratherapeutic INR S/P MVR (mitral valve replacement) History: MR Assessment: 08/21/2021: OnX + posterior mitral annulus patch with bovine pericardial + Left CryoMAZE + Left atrial appendage ligation Plan: ASA, start Coumadin 08/24, hep gtt History of non-ST elevation myocardial infarction (NSTEMI) ESRD on hemodialysis (HCC) Atrial fibrillation (HCC) on Coumadin and Amiodarone Secondary hyperparathyroidism, renal (HCC) Reportedly elevated PTH High PhxCa ratio in the past Now with worsening metastatic calcifications Will recheck Ca, PO4, Vitamin D, and PTH Continue phosphate binders If PTH elevated, ? Need to calcimemtics to suppress the PTH Will discuss further with the nephrology team MEDICATIONS Current Facility-Administered Medications Medication Dose Route Frequency NaCl 0.9% iv flush bag 20 mL INTRAVENOUS PRN acetaminophen 650 mg tab(s) (TYLENOL) 650 mg ORAL q 6 H PRN aspirin 81 mg chewable tab(s) 81 mg ORAL DAILY midodrine 20 mg tab(s) (PROAMATINE) 20 mg ORAL q 8 H cinacalcet 60 mg tab(s) (SENSIPAR) 60 mg ORAL DAILY iv contrast (radiology procedure) INTRAVENOUS DIRECTED PRN sevelamer carbonate 800 mg tab(s) (RENVELA) 800 mg ORAL TID w MEALS oxyCODONE IR 10 mg tab(s) (ROXICODONE) 10 mg ORAL q 6 H PRN clobetasol topical ointment 0.05% (TEMOVATE) TOPICAL BID polyethylene glycol 3350 17 g packet 17 g ORAL DAILY calcitriol 1.5 mcg cap(s) (ROCALTROL) 1.5 mcg ORAL - LORazepam 0.25 mg tab(s) (ATIVAN) 0.25 mg ORAL DAILY PRN heparin iv infusion 25,000 units in NaCl 0.45% 250 mL LOW DOSE/ACS NOMOGRAM 0-3,000 Units/hr INTRAVENOUS CONTINUOUS And heparin RATE CHANGE bolus 1,000-4,000 Units for subtherapeutic PTTAC results 1,000-4,000 Units INTRAVENOUS PRN fentaNYL 50 mcg/mL 25 mcg injection (SUBLIMAZE) 25 mcg INTRAVENOUS DAILY PRN warfarin order for discharge OTHER PRN ascorbic acid 500 mg chewable tab(s) 500 mg ORAL DAILY pyridoxine (vitamin B6) 50 mg tab(s) (VITAMIN B6) 50 mg ORAL DAILY Labs: Glucose control: CBC: Recent Labs 05/01/25 0453 04/30/25 1248 04/29/25 1434 04/28/25 0145 04/27/25 0027 04/26/25 2116 04/26/25 1401 WBC 5.61 5.45 5.75 6.07 5.86 6.68 6.07 HB 8.5* 9.7* 9.7* 8.7* 9.4* 8.4* 8.8* HCT 28.7* 32.5* 32.5* 29.3* 31.8* 27.1* 29.9* PLT 307 343 298 326 354 325 314 MCV 94.1 91.8 92.6 93.0 92.7 90.6 92.3 RDWCV 19.5* 19.4* 19.2* 19.1* 19.3* 19.0* 19.6* COAG: Recent Labs 05/02/25 1720 05/02/25 0922 05/02/256 05/01/25201005/01/25 1312 05/01/25 0453 04/30/25200404/30/25124704/29/25143304/28/25 1219 04/28/25 01404/27/25 0704 04/27/252704/26/25211404/26/25211404/26/25 1401 APTT 60.0* 62.6* 44.1* 57.7* 46.1* 37.4* 40.6* 36.8* -- < > 43.5* < > 43.0* < > 41.2* -- INR -- -- 1.8* -- -- 1.8* -- 2.2* 1.6* -- 1.4* -- 1.7* -- 1.7* 1.9* < > = values in this interval not displayed. BMP: Recent Labs 05/02/2521505/01/2545204/30/25124704/29/25143304/28/2514404/27/25 0028 04/26/25 1401 GLUC 76 83 78 110* 75 72* 72* NA 136 137 136 135* 136 136 137 K 5.1 4.8 4.8 5.2* 4.8 4.6 4.7 CHLOR 93* 93* 92* 95* 95* 94* 95* CO2 23 27 25 22 22 22 26 ANION 20* 17* 19* 18* 19* 20* 16* BUN 41* 31* 17 26* 14 24 20 CREAT 8.39* 6.66* 5.21* 7.29* 4.74* 6.69* 5.73* CHEM: Recent Labs 05/02/2521505/01/2545204/30/25124704/29/25143304/28/2514404/27/258 04/26/25 1401 ALB 3.5* 3.6* 3.8* 3.5* 3.2* 3.6* 3.3* CA 7.5* 7.8* 8.6 7.8* 8.3* 8.2* 8.2* HEPATIC: No results for input(s): ALKPHOS, ALT, AST, TBILI, LIPASE in the last 168 hours. URINALYSIS:No results for input(s): PH, SPGR, UGLUC, UBILI, UKET, UHB, UPROT, UROBIL, UWBC, SSA in the last 168 hours. Invalid input(s): NITR CARDIAC: No results for input(s): CKTEST, CKMB, CKMBP, TROPT, PBNP in the last 168 hours. MICROBIOLOGY: Positive Micro-30 Days No results found for the last 720 hours. Imaging: CXR 04/21/25: TDC with tip in RA. Increase of perihilar and basilar opacities with volume loss, suggesting atelectasis, possible underlying edema/inflammation. Blunting of L CP angle, which may represent tiny effusion or pleural thickening. CT A/P 04/22/25: No abdominal or pelvic subcutaneous fluid collection of gas. Redemonstrated diffuse subcutaneous extensive abdominal wall collaterals, similar to prior CTA 10/17/2024. CT chest 04/22/25: extensive chest wall collaterals, few areas of skin ulceration, no areas of drainable fluid collection. Findings consistent with central venous stenoses. Few patchy groundglass opacities, may be related to mild pulm edema Assessment AND Plan: Elia Weston is a 45 year old male with extensive PMH, significant for ESRD on HD (MWF) last session 04/18 (skipped Friday since he came to ED), CAD s/p CABG, severe MS s/p MVR on Warfarin, pAfib s/p maze procedure and RADHA clip and chronic chest/abdominal/back wounds (3 years) likely secondary to ischemia in context of SVC syndrome and multiple thrombosis, who presented to the ED with 1-day of left chronic chest wound bleeding. Admitted for management of bleeding, and on transfer to [facility], patient began to have significant bleeding from R chest wound. Continuous pressure was applied and bleeding stopped. Now s/p FFP and RBC transfusions as appropriate. Initially started on Vanc/Zosyn given elevated ESR/CRP and WBC, no infectious concern on further imaging with improved lactate WBC, so abx were stopped. Dermatology and wound care consulted. IR consulted, planning for venoplasty given INR reversal. 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 Hx of hemorrhagic shock from bleeding abdominal wounds - presenting with acute worsening of pain and bleeding from wounds. Denies purulent discharge from wounds. - Leukocytosis + Elevated CRP 22.1 and ESR 133 + Elevated lactate on presentation; concerned for infected wounds/soft tissue infection. Started on IV vanc/zosyn, later d/janie due to low infectious concern (04/21-04/25) - On admission, acute rise in lactate in light of acute significant bleeding and drop in HGB (8.6 from 9.5 in ED) likely secondary to hypovolemia, also missed dialysis - CT venogram on 10/19/24 with b/l brachiocephalic stenosis w b/l subclavian vein occlusion, extensive venous collaterals - 10/22/24: Venoplasty completed by IR, removed L femoral TDC, exchanged R TDC - blood cultures 04/20/25 with NG5D x2 - AMET for hypotension 80/50, s/p 500 cc LR bolus, scheduled midodrine with improved repeat 102/63 - lactate 2.4 from 1.7, improved from 3.2 at admission. Completed 5d course of IV vanc/zosyn (04/21-04/25) - CT chest and CT A/P 04/22/25 with no drainable fluid collections, extensive chest collaterals - nutritional workup: B12 elevated, folate wnl, iron low 26, TIBC low 137, trans sat wnl, low vit D 22.9, zinc 69 wnl, low vit A 0.10 - 04/29/25: Venoplasty: completed by IR. 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 Right upper chest tunneled dialysis catheter was exchanged over a wire for a new on; ready for use PLAN: - IR consulted: > venoplasty 04/29/2025 - no complications - Derm consulted: > ongoing nutritional workup > continue clobetasol 0.05% ointment BID, lesion over R scapula, try to simulate tx of PG and assess response > [facility] Derm f/u outpatient - continue vitamin D supplement 5000 unit(s), ascorbic acid 500mg/day, vit B6 50mg/day - wound care team consulted, appreciate care - pain control: tylenol 650 mg q6h prn and oxycodone 10 mg po q6h PRN. > IV fent for dressing changes as needed - plastic surgery consulted: > no indication for surgical intervention at this time - Cautious fluid resuscitation in light of acute bleeding and ESRD anuric on HD #Supratherapeutic INR #CAD s/p CABG #Severe MS s/p mechanical MVR on coumadin #Paroxysmal Afib s/p multiple DCCV s/p Maze procedure + RADHA clip (07/2021) - atrial fibrillation and severe mitral stenosis s/p mechanical mitral valve replacement with On-x valve (INR goal 2.5-3.5), Maze procedure and RADHA clip on 08/21/2021. - Goal INR 2.5- 3.5; on warfarin 2.5 mg daily although patient not sure of dose, has been changed recently; last dose of warfarin Thursday 04/19 - INR elevated to 5.1 on admission, improved to 3.9 s/p 2u FFP 04/21 - possible etiology of supratherapeutic INR: warfarin dose (given patient not sure of home dose) vs malnutrition vs liver disease (less likely given AST/ALT wnl) - INR elevated again to 5.3, patient received po vitamin K 5 mg 04/25. Improved to 1.7 PLAN: - given subtherapeutic INR and no intervention by plastic surgery planned, continue bridging to warfarin > goal INR 2.5 - 3.5, given mechanical valve. - INR 1.7 on 05/03/25 - continue heparin gtt, bridge with warfarin (to give 7.5 mg today) - Daily INR - Follows with Dr. Moreno (cardiology in [place]) for mgmt of Coumadin, will need follow-up outpatient #ESRD on HD via Right TDC #Chronic Hypotension #Secondary Hyperparathyroidism - iHD at [facility] through R. Tunneled HD catheter MWF - Last dialysis session Friday04/18/2025; missed Fri session because he presented to [facility] ED - anuric at baseline per patient - Serum P=9.7 - completed HD 04/21, now on MWF - PTH elevated 578, Ca 8.3 low PLAN: - nephrology consulted: > continue MWF HD schedule > continue calcitriol MWF - Continue Sensipar, renvela with meals - continue home Midodrine 20mg daily #Anemia of Chronic Disease/ESRD - Baseline hemoglobin 9-11 - iron studies 12/2024: iron 33, TIBC 156, Iron sat 21, ferritin 1327 - Hgb dropping iso bleeding wounds, as above. - received 1u pRBC 04/21, Hgb from 7.3 -> 7.7 post-transfusion - Hgb 6.9 on 04/22, s/p additional 2u pRBC with Hgb in ~8s PLAN: - Hgb goal >8, 8.3 this am - chronic wound mgmt, as above #Code status - Full # Diet - renal # VTE PPx - heparin gtt, bridge to warfarin # Dispo Planning - Pending clinical course, SW consulted for recent unemployment, c/f food insecurity These recommendations and plan are not final until co-signed by the attending physician Ana Daley MD. Giovanna Chowdhury DO PGY-1 Neurology CNPN Observed: 05/03/2025 12:00 AM Status: COMPLETED Source: [facility] Telephone (BOBYMMN) ELIA WESTON ([id number]) 1980 M T Date Time Provider Department 05/03/25 DELVIN BELTRAN During your visit today, we recorded the following information about you: Sari Lamb 05/04/2025 12:14 PM Signed Patient has been scheduled for ON follow up. Sending message and mailing reminder. Allergies As of Date: 05/03/2025 Noted Allergy Reaction GABAPENTIN 08/09/2021 16 - Unknown 14 - Other: See Comments TRAZODONE 10/11/2024 14 - Other: See Comments Comments: Fidgety Date Reviewed: 05/01/2025 Reviewed by: Stacy Spencer RN - Fully Assessed Prescriptions as of 05/04/2025 - aspirin 81 mg chewable tablet Take 81 mg by mouth. - cinacalcet (SENSIPAR) 60 mg tablet Take 1 tablet by mouth once daily. - melatonin 3 mg tablet Take 3 tablets by mouth daily at bedtime. - warfarin (COUMADIN) 2.5 mg tablet Take 1 tablet by mouth once daily. - calcitriol (ROCALTROL) 0.5 mcg capsule Take 3 capsules by mouth every Friday, Friday, and Friday. - Darbepoetin [place] In Polysorbat (ARANESP) 60 mcg/0.3 mL syrg Inject 0.3 mL subcutaneously every Friday. - sodium zirconium cyclosilicate (LOKELMA) 10 gram oral packet Take 1 Packet by mouth once daily. Mix powder in 45 mL of water, stir and drink immediately. - sevelamer carbonate (RENVELA) 800 mg tablet Take 3 tablets by mouth three times a day with meals. - polyethylene glycol 3350 (MIRALAX) 17 gram packet Take 1 Packet by mouth once daily. Dissolve dose in 4 - 8 ounces of liquid and take as directed. - oxyCODONE IR (ROXICODONE) 10 mg tab Take 10 mg by mouth every 8 hours as needed for pain. - B Complex-Vitamin C-Folic Acid (JOHNSON-BRENDA) 0.8 mg tab Take 1 tablet by mouth once daily. - midodrine (PROAMATINE) 10 mg tablet Take 2 tablets by mouth every 8 hours. Facility-Administered Medications as of 05/04/2025 - warfarin 7.5 mg tab(s) (COUMADIN) - vitamin A 10,000 Units cap(s) (AQUASOL A) - warfarin order for discharge - ascorbic acid 500 mg chewable tab(s) - pyridoxine (vitamin B6) 50 mg tab(s) (VITAMIN B6) - heparin iv infusion 25,000 units in NaCl 0.45% 250 mL LOW DOSE/ACS NOMOGRAM - heparin RATE CHANGE bolus 1,000-4,000 Units for subtherapeutic PTTAC results - fentaNYL 50 mcg/mL 25 mcg injection (SUBLIMAZE) - LORazepam 0.25 mg tab(s) (ATIVAN) - polyethylene glycol 3350 17 g packet - calcitriol 1.5 mcg cap(s) (ROCALTROL) - oxyCODONE IR 10 mg tab(s) (ROXICODONE) - acetaminophen 650 mg tab(s) (TYLENOL) - aspirin 81 mg chewable tab(s) - midodrine 20 mg tab(s) (PROAMATINE) - cinacalcet 60 mg tab(s) (SENSIPAR) - iv contrast (radiology procedure) - sevelamer carbonate 800 mg tab(s) (RENVELA) - NaCl 0.9% iv flush bag Meds Comments as of 07/14/2023: 07/14/23 The medications are managed by this patient by: PATIENT Nini Redd, [facility]ly [facility] Problem List As Of Date 05/03/2025 Noted Resolved ESRD (end stage renal disease) on dialysis ([facility]*10/16/2012 HTN (hypertension) [I10] 10/16/2012 Obesity [E66.9] 11/02/2012 Epigastric pain [R10.13] 11/02/2012 Mechanical complication of other vascular devic*02/12/2013 Right knee pain [M25.561] 07/29/2013 Obesity, morbid, BMI 40.0-49.9 ([facility]) [E66.01] 02/22/2014 Tendinitis of left shoulder [M77.8] 02/22/2014 Mass of left thigh [R22.42] 09/08/2014 Thigh pain [M79.659] 09/08/2014 Hematuria [R31.9] 12/08/2014 Dialysis patient ([facility]) [Z99.2] 12/08/2014 YEIMY (obstructive sleep apnea) [G47.33] 05/09/2015 Abdominal or pelvic swelling, mass, or lump, ri*05/09/2015 Secondary hyperparathyroidism, renal ([facility]) [N25*05/09/2015 Renal osteodystrophy [N25.0] 05/09/2015 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*05/09/2015 Groin pain [R10.30] 05/09/2015 Personal history of DVT (deep vein thrombosis) *03/28/2016 Sprain of medial collateral ligament of right k*04/22/2016 ESRD (end stage renal disease) ([facility]) [N18.6] 04/21/2019 PAF (paroxysmal atrial fibrillation) ([facility]) [I48*12/02/2018 A-V fistula ([facility]) [I77.0] 04/23/2019 Anemia of chronic disease [D63.8] 04/23/2019 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] 05/18/2021 ESRD on hemodialysis ([facility]) [N18.6, Z99.2] 04/07/2019 Expressive dysphasia [R47.02] 08/01/2021 History of endocarditis [Z86.79] 08/01/2021 Hearing loss [H91.90] 02/17/2018 History of non-ST elevation myocardial infarcti*11/08/2019 Heart failure, unspecified ([facility]) [I50.9] 08/05/2011 Iron deficiency anemia, unspecified [D50.9] 05/31/2008 Chronic anticoagulation [Z79.01] 08/01/2021 Mitral valve disease [I05.9] 08/01/2021 Myocardial infarction ([facility]) [I21.9] 08/01/2021 Noncompliance with medication regimen [Z91.148] 08/01/2021 Paroxysmal atrial flutter ([facility]) [I48.92] 08/01/2021 Pulmonary embolism ([facility]) [I26.99] 08/01/2021 Pulmonary edema [J81.1] 08/01/2021 Stenosis of other vascular prosthetic devices, *05/22/2021 Unspecified atherosclerosis of [place] arteries *10/30/2013 Vitamin D deficiency [E55.9] 10/16/2020 Hypervolemia [E87.70] 08/01/2021 09/04/2021 Open wound of right side of back [S21.201A] 08/01/2021 History of stroke [Z86.73] 08/01/2021 Hypotension, chronic [I95.89] 08/01/2021 Falls [R29.6] 08/01/2021 Mitral valve stenosis, severe [I05.0] 08/03/2021 Mitral stenosis [I05.0] 08/03/2021 Obesity, Class II, BMI 35-39.9 [E66.812] 08/04/2021 Discharge planning issues [Z75.8] 08/17/2021 08/31/2021 Dental caries [K02.9] 08/19/2021 Pain, postoperative, acute [G89.18] 08/21/2021 08/29/2021 Coagulopathy (HCC) [D68.9] 08/21/2021 08/22/2021 S/P MVR (mitral valve replacement) [Z95.2] 08/22/2021 Acute pulmonary edema (HCC) [J81.0] 08/25/2021 08/31/2021 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]08/25/2021 CHB (complete heart block) (HCC) [I44.2] 08/29/2021 Encounter for support and coordination of trans*08/31/2021 Abdominal pain [R10.9] 09/28/2022 Nausea and vomiting [R11.2] 09/28/2022 09/30/2022 Near syncope [R55] 09/28/2022 Acute colitis [K52.9] 09/29/2022 Supratherapeutic INR [R79.1] 09/30/2022 Anemia of chronic disorder [D63.8] 06/12/2023 Atrial fibrillation (HCC) [I48.91] 12/02/2018 Essential hypertension, benign [I10] 1998 Abdominal wall skin ulcer, with unspecified sev*06/24/2023 Acute on chronic blood loss anemia [D62] 06/24/2023 Melena [K92.1] 06/24/2023 Hypotension [I95.9] 06/24/2023 Adjustment disorder with depressed mood [F43.21]06/27/2023 Hyperkalemia [E87.5] 06/30/2023 Hyponatremia [E87.1] 06/30/2023 Metabolic acidosis [E87.20] 06/30/2023 Anemia of renal disease [N18.9, D63.1] 06/30/2023 Skin pain [R20.8] 06/30/2023 Bleeding ulcer [K28.4] 06/30/2023 MSSA bacteremia [R78.81, B95.61] 07/01/2023 Proximal colon ulcer [K63.3] 07/02/2023 Aftercare for long-term (current) use of antibi*07/02/2023 Anemia due to chronic kidney disease, on chroni*07/02/2023 Mild protein-calorie malnutrition (HCC) [E44.1] 08/31/2023 Acquired hypothyroidism [E03.9] 03/17/2024 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 *03/18/2024 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] 03/18/2024 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] 03/18/2024 At risk for alteration in skin integrity based *03/20/2024 Venous collateral circulation [I99.8] 03/21/2024 Hypothyroidism [E03.9] 03/21/2024 H/O mitral valve replacement with mechanical va*03/21/2024 Hypocalcemia due to chronic kidney disease [E83*03/25/2024 Chronic pain syndrome [G89.4] 03/28/2024 Uremia [N19] 04/22/2024 Jugular vein occlusion, 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*04/22/2024 Arteriovenous graft stenosis, sequela [T82.858S]04/22/2024 Open abdominal wall wound [S31.109A] 04/23/2024 Anemia due to stage 5 chronic kidney disease, n*10/13/2024 Status post Maze operation for atrial fibrillat*10/13/2024 Ulcers, venous (HCC) [I83.009, L97.909] 10/13/2024 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] 10/14/2024 11/02/2024 Generalized weakness [R53.1] 10/15/2024 Impaired functional mobility, balance, gait, an*10/15/2024 Ischemic ulcer with fat layer exposed (HCC) [L9*10/21/2024 Gastroesophageal reflux disease without esophag*11/03/2024 Secondary hyperparathyroidism (HCC) [N25.81] 11/03/2024 Anemia in chronic kidney disease (CODE) [D63.1] 11/03/2024 Wounds, multiple [T07.XXXA] 04/21/2025 Anemia due to multiple mechanisms [D64.89] 04/21/2025 Hemorrhage from open wound of left chest wall [*04/21/2025 Bleeding from open wound of chest wall, right, *04/21/2025 Open chest wound, right, sequela [S21.101S] 04/22/2025 Open chest wound, left, sequela [S21.102S] 04/22/2025 Back wound, unspecified laterality, sequela [S2*04/22/2025 Open wound of abdomen [S31.109A] 04/22/2025 Open wound of right thigh [S71.101A] 04/22/2025 Bleeding from wound [T14.8XXA] 04/23/2025 Difficult intravenous access [Z78.9] 04/24/2025 Hypervolemia [E87.70] 04/25/2025 Skin ulcers (HCC) [L98.499] 04/27/2025 Vitamin C deficiency [E54] 05/03/2025 Vitamin A deficiency [E50.9] 05/03/2025 Vitamin B6 deficiency [E53.1] 05/03/2025 Encounter Status:Closed by DELVIN BELTRAN on 05/03/25 PTT, ANTICOAGULANT THERAPY Collected: 0 05/02/2025 5:20 PM Status: F Source: [facility] Order Comment: Specimen Type : BLOOD SPECIMEN Ordering Facility: [facility] Address: [address] [place] [address] TYPE CODE TESTS RESULT OUT OF RANGE REFERENCE UNITS LAB 35533-1(LOINC) aPTT PPP 60.0 High 23.0-32.4 sec Performed By: #### PTTAC ### # [facility] CLIA [id number] [address] [place] [address] [place] [address] [place] [facility] Observed: 05/02/2025 5:15 PM Status: COMPLETED Source: [facility] HNO ID: [id number] Author: SHANNON HOOD Music Therapist Service: Music Therapy Author Type: Therapist Type: Allied Health Filed: 05/03/2025 08:53 Note Text: MUSIC THERAPY NOTE SERVICE DATE: 05/02/2025 SERVICE TIME: 2:50 - 3:55 PM Referred By: Other: See Comment (resident/fellow) Reason for Referral: Coping Skills, Anxiety Session Type: Initial (of this admission) Time Spent (minutes): 65 GOALS: Goals: Build Rapport, Improve Mood, Improve Coping, Increase Relaxation, Increase Self-expression, Promote Feelings of Control, Other: See Comment (Provide spiritual support through music) Coping Items Addressed: Hospitalization INTERVENTIONS: Interventions: Making Choices, Music Discussion, Music Listening, Singing, Therapeutic Use of Self/Verbal Processing Making Choices: Songs, Interventions Listening Type: Recorded Response Before After Pain 3 3/10 Anxiety 0/10 0/10 Mood 1/4 0/4 Facial Behavior 1 - Neutral 0 - Smiling Body Movement 0 - No Movement/Appropriate Movement 0 - No Movement/Appropriate Movement Sleep N/A - Awake N/A - Awake Vocal 1 - Neutral/No Vocal 0 - Positive Scale: 0 = No pain/anxiety 10 = Worst possible pain/anxiety RESPONSE: Music Choices: Made Choices Number of Choices: 10 Response During Interventions: Knew Songs, Moving to Music, Sang, Hand Tapping Music Used: God is Doing It, Psalm 23 (I am Not Alone), The Lord is [place] Me, We Offer Praise, I Gotta Feeling Style of Music: gospel Family Present: No Patient's Verbal Response: Positive OUTCOME: Goals: Met FOLLOW UP: Will Continue to Follow Music therapy referral received and appreciated. Familiar with pt from previous admissions. [facility] greeted pt, who was awake in hospital bed and welcomed visit. 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 He was having some mild pain (3/10) at time of visit, and opted to engage in music-listening rather than instrument playing today. 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 Per request, [facility] provided recorded pt-preferred music to address psychosocial and spiritual support. During the music, pt responded by actively listening, singing intermittently, moving to the music and conducting at times. Therapist supported pt by actively listening, singing along as able. Between songs, pt engaged in music-based discussion and reminiscence. He expressed gratitude and benefit for the ministry of music therapy, reflecting on his 2 week admission and that he had not listened to any music during hospitalization until today. Provided supportive listening and validation. At end of visit, pt expressed gratitude and denied further needs. Music Therapy will continue to follow. SIGNATURE: Shannon Hood Music Therapist PATIENT NAME: Elia Weston DATE: May 02, 2025 TIME: 5:15 PM PAGER/CONTACT #: [phone] THERAPY NT Observed: 05/02/2025 5:07 PM Status: COMPLETED Source: [facility] HNO ID: [id number] Author: RENÉE MARTINES, PT, DPT Service: Physical Therapy Author Type: Physical Therapist Type: Therapy (PT/OT/Speech/Resp) Filed: 05/02/2025 17:30 Note Text: Physical Therapy Evaluation Summary SERVICE DATE: 05/02/2025 SERVICE TIME: 1607 to 1706 ROOM: [place] [address] PT 6 Clicks Score: 16 DISCHARGE RECOMMENDATIONS: Home PT - patient may progress to safe discharge home with OPPT pending progress while in house. 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 Has been sleeping in recliner 2/2 to pain. (+) driving SUBJECTIVE Patient pleasant and agreeable to PT. I've been asking for PT since I've been here! Will PT be back tomorrow? THERAPY DIAGNOSIS Reduced mobility-other, Muscle Weakness (generalized), General symptoms and signs-other TREATMENT INTERVENTIONS Evaluation, Therapeutic Activity (52271) Timed Code Treatment (minutes): 38 Skilled Treatment Time (minutes): 53 Total Session Time (minutes): 59 TRAINING AND EDUCATION PROVIDED Anatomy and Impact on Deficits, Bed Mobility, Benefits of In-Hospital Mobility, Discharge Planning, Disease Specific Education, Energy Conservation, Expected Functional Level, Falls Prevention, Gait Pattern, Reduction of Deviations, Pain Neuroscience, Patient Exercise/Therapy Program Support Needs, Positioning, Precautions/Restrictions, Role of Physical Therapy, Sitting Balance, Standing Balance, Transfers, Treatment Protocol THERAPEUTIC SKILLS USED Activity Dosing, Assessment of Tolerance Including Vitals Response to Activity, Cues for Sequencing/Proper Technique for Activity, Cuing Tactile, Cuing Verbal, Facilitation of Joint Range of Motion, Management of Critical Lines, Tubes and/or Drains, Movement Facilitation, Physical Assist, Muscle Activation Facilitation, Postural Alignment Correction, Proprioceptive Input, Task Analysis Learning, Teach-Back for Education FUNCTIONAL STATUS Bed Mobility Supine To Sit: Contact Guard Assistance (with HOB elevation) Scooting: Contact Guard Assistance Transfers Sit To Stand: Contact Guard Assistance Stand To Sit: Contact Guard Assistance Bed to Chair Contact Guard Assistance Bed To Chair Transfer Type: Stepping Bed To Chair Transfer Equipment: (IV pole) Gait Contact Guard Assistance Gait Device: IV Pole General Deviations/Observations: Magali decreased, Difficulty changing direction/turning, Non-functional gait speed, Wide base of support, Step length decreased Gait Distance (feet): 50 Stairs GOALS Patient will demonstrate progress with functional mobility to allow safe discharge to home with available support and/or physical assistance. Rehab Potential: Good Good Rehab Potential Due To: Current objective clinical presentation, Good support system/ coping skills, Good motivation ACUTE CARE TREATMENT PLAN PT Frequency: 3 Times Per Week Treatment Interventions: Education, Self Care / Home Management, Energy Conservation Training, Joint Mobility, Strengthening, Functional Mobility Training, Balance Training, Neuromuscular Re-education Plan for Next Visit: Sit to Stand Transfers, Gait Training, Walker Training SIGNATURE: Renée Martines, PT, DPT PATIENT NAME: Elia Weston DATE: May 02, 2025 TIME: 5:07 PM CONSULT PROG Observed: 05/02/2025 1:01 PM Status: COMPLETED Source: [facility] ID: [id number] Author: JARVIS SAUCEDO MD, PhD Service: Dermatology Author Type: Physician Type: Consult Progress Note Filed: 05/02/2025 20:28 Note Text: DERMATOLOGY HOSPITAL CONSULT SERVICE PROGRESS NOTE Interval Events - has received the clobetasol a few times and is feeling ok PHYSICAL EXAM BP (!) 104/41 Pulse (!) 54 Temp 37.4 ?C (99.3 ?F) (Oral) Resp 16 Wt 115.9 kg (255 lb 8.2 oz) SpO2 99% BMI 36.99 kg/m? GEN: Age appropriate Patient declines physical examination given pain with dressing changes photos in chart from 04/22/2025: - L chest with deep ulcer with granulation tissue at the periphery and hemorrhagic crust at the center. Worsening compared to photo from 12/04/24. - R chest with ulceration deeper than photo 09/06/24 - Back with scattered ulcerations with granulation tissue at base and hyperpigmented periphery. Possible rolled border. Hypopigmented cribriform scars with hyperpigmented periphery. Enlarged compared to photos from November 2024 and August 2024. - Abdomen with scattered ulcerations with granulation tissue at base and hyperpigmented periphery. Hypopigmented scars with hyperpigmented periphery. Improving compared to photos from August 2024. LABORATORY TESTS: DATA: IMAGING: No pertinent imaging LABS: - CBC without leukocytosis as of 05/02 - total Ca low - CRP elevated 22.1 - ESR elevated 133 - Blood cultures (04/20) - NGTD Vit B 12 >2,000 (high) Folate, zinc WNL Vit D 22.9 (low) Iron 26, TIBC 137, Tsat WNL B6, C, A pending BIOPSY: Punch biopsy 10/15/24 FINAL DIAGNOSIS A. Skin, chest, punch biopsy: - Dermal fibrosis and reactive vascular proliferation, see comment. APF/dkm 10/18/2024 at 1513 EST Diagnosis Comment Histologic sections display a basket-weave to compact orthokeratotic stratum corneum with focal parakeratosis overlying a markedly acanthotic and mildly spongiotic epidermis. Within the dermis, there is a superficial and deep interstitial vascular and histiocytic proliferation with collagen fibrosis and elastic fiber disarray. There is a scant perivascular mixed infiltrate including lymphocytes, histiocytes, and neutrophils. Eosinophils are not readily identified. To further evaluate this specimen, immunohistochemical and special stains were performed and compared to appropriate controls. Gram, GMS, and AFB-Christiana stains are negative for evidence of infectious organisms. A Von Kossa stain is negative for evidence of intraluminal or dermal calcium deposition. In order to further evaluate the vascular proliferation, immunohistochemical staining is performed at the [facility] on block A1 with appropriate controls. Stains for CD31 and ERG highlight the vascular endothelial cells, showing that they are mostly small and thin-walled without significant nuclear enlargement or multilayering. The clinical history and photographs are reviewed. Overall, these features are those of dermal fibrosis and a reactive vascular proliferation. These findings could be consistent with reactive ischemic changes in the correct clinical context. Features of pyoderma gangrenosum calciphylaxis are not identified, although the subcutaneous adipose tissue is minimally sampled. Clinical correlation remains essential. 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 On admission, patient had leukocytosis with elevated CRP/ESR and elevated lactate. Patient is on IV antibiotics. Currently patient is afebrile and leukocytosis has resolved. No clinical signs of infection at this time. Punch biopsy 06/26/23 revealed ulcer with dermal fibrosis, vascular ectasia, and reactive vascular proliferation - overall nonspecific findings but could be related to chronic ischemia given patient's history and clinical morphology. Punch biopsy 10/15/24 showing dermal fibrosis and a reactive vascular proliferation which is most consistent with reactive ischemic changes in the correct clinical context. Features of pyoderma gangrenosum, calciphylaxis not identified. Tissue cultures no growth on bacterial culture and NGTD on fungal/AFB. Pt was treated with STS for a few months in 2022 for presumed calciphylaxis but this was never biopsy proven. Patient denies the presence of a preceding papule or pustule that progresses to ulceration quickly. He endorses the lesions start as hyperpigmentation and skin tears. Denies painful indurated plaques in areas of ulceration prior to onset. Clinically, initial presentation is not consistent with calciphylaxis. A few features of pyoderma gangrenosum are present, however prior biopsy is supportive of ischemic vasculopathy as likely trigger for non-healing ulcers. Pt remains afebrile without leukocytosis, low concern for infection. He reports improvement in prior wounds. Continue to favor that wounds are related to reactive ischemic changes given patient's co-morbidities (ESRD, HTN, vasculopathy). Given persistent, non-healing wounds, recommend nutritional workup given patient's diet is limited, following labs as they return. Discussed option to repeat biopsy with patient on 04/25 and he declined given that he has had numerous biopsies in the past. Pt feels that when he has received systemic steroids in the past it improved the pain and appearance of his wounds. Given that infectious work up of his wounds has been negative to date, would consider a trial of a topical steroid to a smaller wound to simulate treatment of PG to assess its response. Pt now amenable to this plan. Requested new photos of patient's wounds to be taken during dressings changes and I will review the photos with the patient and decide which lesion to treat. PLAN: - await remainder of nutritional workup for poorly healing wounds, supplementation as appropriate - Agree with wound care recommendations per C team - please order clobetasol 0.05% ointment to be applied to wound edge twice daily - We will treat the lesion located over the right scapula. Discussed this with patient and RN. - defer pain control to primary team but would consider pre-medication for wound dressing changes as he is reporting significant pain with these Patient discussed with attending printed circuit board assembler, Dr. Donald Beltran MD Dermatology PGY-3 05/02/2025 1:01 PM Please use consult pager [phone], Mon-Fri 8am-5pm. Please call adzing and boring machine operator for on-call resident/pager during all other hours. I agree with the Chief Complaint, ROS, and Past Histories independently gathered by the clinical application support consultant and the remaining scribed note accurately describes my personal service to the patient. I was physically present during the critical/mendoza portions of this encounter and during all procedures, and agree with the above evaluation, assessment, and treatment plan. I reviewed the patient's chart and discussed care with the patient and the other physicians involved. Jarvis Saucedo MD, PhD CASE MANAGEM Observed: 05/02/2025 11:48 AM Status: COMPLETED Source: [facility] HNO ID: [id number] Author: ?, ?, ? Service: Care Management Author Type: ? Type: Care Mgt Progress Note Filed: 05/02/2025 11:48 Note Text: CARE MANAGEMENT PROGRESS NOTE SERVICE DATE: 05/02/2025 SERVICE TIME: 9:53AM LOS: 11 days IMM Follow Up Copy Given: Yes Copy given to:: Patient Method: In Person SIGNATURE: Caroline Mesa [facility] PATIENT NAME: Elia Weston DATE: May 02, 2025 TIME: 11:48 AM CONSULT PROG Observed: 05/02/2025 9:57 AM Status: COMPLETED Source: [facility] HNO ID: [id number] Author: LUCILLE GOMEZ APRN.CNP Service: Nephrology Author Type: Nurse Practitioner Type: Consult Progress Note Filed: 05/02/2025 10:12 Note Text: CONSULT PROGRESS NOTE NEPHROLOGY Q6 SERVICE SERVICE DATE: 05/02/2025 SERVICE TIME: 9:57 AM SUBJECTIVE INTERVAL HISTORY: - ESRD Patient seen on dialysis, single evaluation. Orders confirmed and documented per LEONEL. On heparin gtt. -Patient tolerating dialysis well -Denies any chest pain, shortness of breath or dizziness -Denies any nausea, vomiting, muscle aches or headaches MEDICATIONS: Current Facility-Administered Medications Medication Dose Route Frequency NaCl 0.9% iv flush bag 20 mL INTRAVENOUS PRN acetaminophen 650 mg tab(s) (TYLENOL) 650 mg ORAL q 6 H PRN aspirin 81 mg chewable tab(s) 81 mg ORAL DAILY midodrine 20 mg tab(s) (PROAMATINE) 20 mg ORAL q 8 H cinacalcet 60 mg tab(s) (SENSIPAR) 60 mg ORAL DAILY iv contrast (radiology procedure) INTRAVENOUS DIRECTED PRN sevelamer carbonate 800 mg tab(s) (RENVELA) 800 mg ORAL TID w MEALS oxyCODONE IR 10 mg tab(s) (ROXICODONE) 10 mg ORAL q 6 H PRN clobetasol topical ointment 0.05% (TEMOVATE) TOPICAL BID polyethylene glycol 3350 17 g packet 17 g ORAL DAILY calcitriol 1.5 mcg cap(s) (ROCALTROL) 1.5 mcg ORAL -WE LORazepam 0.25 mg tab(s) (ATIVAN) 0.25 mg ORAL DAILY PRN heparin iv infusion 25,000 units in NaCl 0.45% 250 mL LOW DOSE/ACS NOMOGRAM 0-3,000 Units/hr INTRAVENOUS CONTINUOUS And heparin RATE CHANGE bolus 1,000-4,000 Units for subtherapeutic PTTAC results 1,000-4,000 Units INTRAVENOUS PRN fentaNYL 50 mcg/mL 25 mcg injection (SUBLIMAZE) 25 mcg INTRAVENOUS DAILY PRN warfarin order for discharge OTHER PRN ascorbic acid 500 mg chewable tab(s) 500 mg ORAL DAILY pyridoxine (vitamin B6) 50 mg tab(s) (VITAMIN B6) 50 mg ORAL DAILY OBJECTIVE PHYSICAL EXAM: BP (!) 104/41 Pulse (!) 54 Temp 37.4 ?C (99.3 ?F) (Oral) Resp 16 Wt 115.9 kg (255 lb 8.2 oz) SpO2 99% BMI 36.99 kg/m? Intake/Output Summary (Last 24 hours) at 05/02/2025 0957 Last data filed at 05/02/2025 0537 Gross per 24 hour Intake 640 ml Output 0 ml Net 640 ml GENERAL: Awake, alert, in no acute distress SKIN: Warm and dry HEENT: Normocephalic, Atraumatic LUNGS: Normal respiratory effort. CARDIAC: RRR ABDOMEN: Soft, non-tender, non-distended. EXTREMITIES: +peripheral edema NEURO: AOx3, normal speech Vascular Access: Hemodialysis catheter location: Right Tunneled internal jugular. Exit site demonstrates: normal findings DATA: Diagnostic tests reviewed for today's visit: Recent Labs 05/02/25 0216 05/01/25 0453 04/30/25 1248 04/29/25 1434 04/28/25 0145 NA 136 137 136 135* 136 K 5.1 4.8 4.8 5.2* 4.8 CHLOR 93* 93* 92* 95* 95* CO2 23 27 25 22 22 BUN 41* 31* 17 26* 14 CREAT 8.39* 6.66* 5.21* 7.29* 4.74* GLUC 76 83 78 110* 75 ANION 20* 17* 19* 18* 19* CA 7.5* 7.8* 8.6 7.8* 8.3* P 6.0* 5.9* 4.9* 5.3* 4.0 Recent Labs 05/01/25 0453 04/30/25 1248 04/29/25 1434 WBC 5.61 5.45 5.75 HB 8.5* 9.7* 9.7* HCT 28.7* 32.5* 32.5* PLT 307 343 298 ASSESSMENT: Mr. 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 Labs on presentation significant for elevated lactic acid, leukocytosis, anemia and supratherapeutic INR. Of note, his previous admission 10/12/2024-11/02/2024 was also for pain and bleeding of the wounds/skin ulcers. Biopsy was consistent with reactive ischemic changes at the time without features of Polyderma Gangrenosum or calciphylaxis. Patient was admitted under general internal medicine team for further management. Nephrology consulted for ESR management. 1.ESRD History -Etiology: HTN Renal Biopsy 2006 renal failure, of undetermined etiology. 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 On midodrine -EDW 114 kg, pre-weigh today 115.9 kg with UF goal 3.5 L as tolerated -Hypervolemic on exam 4.Anemia of CKD: -hgb near ESRD goal -S/P RBC transfusions 04/22 -Iron Stores 04/04: Ferritin 653 Iron 25 TIBC 180 TSAT 14 -Avoid IV iron in the setting of infection -ANABELLA: when indicated, repeat CBC to determine need as prev hgb 9.7 5.Secondary renal hyperparathyroidism: -Phos above goal 6.0 on binder -Calcium corrects stable on sensipar -PTH 578 PLAN: -IHD today x 4.5 hours, 2 K bath with UF goal 3.5 L -Next dialysis planned for Friday -Continue renvela and sensipar -ANABELLA when indicated -Continue midodrine Standard ESRD recommendations and precautions: - Strict IANDOs and Daily weight - Consider a RENAL Diet for HD patients - Fluid restriction < 1 L - Start Nephrocap or other renal multivitamin to replace water-soluble vitamins lost during dialysis - Avoid Lovenox, Demerol, Morphine, K-containing IVF, Mg- or Phos- containing enemas - Dose meds GFR 10 ml/min Outpatient dialysis disposition plan: contact [phone] and ask to speak with the director of front office as needed for assistance with post-discharge arrangements. Please DO NOT schedule patient for a nephrology follow up appointment. Kidney care will be provided by the primary data warehousing engineer at their dialysis unit upon hospital discharge. SIGNATURE: Lucille Gomez APRN.CNP PATIENT NAME: Elia Weston DATE: May 02, 2025 TIME: 9:57 AM PAGER: [phone] FOR AFTER HOUR CONCERNS BETWEEN 5PM - 7AM CONTACT ON-CALL NEPHROLOGY FELLOW [phone] Disclosures: Parts of the current progress note may have been copied from a previous note. PTT, ANTICOAGULANT THERAPY Collected: 0 05/02/2025 9:22 AM Status: F Source: [facility] Order Comment: Specimen Type : BLOOD SPECIMEN Ordering Facility: [facility] Address: [address] [place] [address] TYPE CODE TESTS RESULT OUT OF RANGE REFERENCE UNITS LAB 69384-4(LOINC) aPTT PPP 62.6 High 23.0-32.4 sec Performed By: #### PTTAC ### # [facility] CLIA [id number] [address] [place] [address] [place] [address] [place] PROGRESS Observed: 05/02/2025 5:22 AM Status: COMPLETED Source: [facility] HNO ID: [id number] Author: ANA DALEY MD Service: General Internal Medicine Author Type: Resident Type: Progress Notes Filed: 05/02/2025 17:46 Note Text: Attestation signed by Ana Daley MD at 05/02/2025 5:46 PM [facility] STAFF PHYSICIAN NOTE OF PERSONAL INVOLVEMENT IN CARE I have reviewed the progress note obtained and documented by the resident and I personally participated in the mendoza components. I have discussed the case and management of the patient's care. The following comments revise or confirm relevant mendoza components of their note. Patient was seen and examined. No new complaints. Had dialysis this morning. INR 1.8 today. Reports coumadin dose at home is 5 mg daily. 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 Bleeding resolved # Blood loss anemia from above s/p 1 pRBC (04/21) and 2 pRBC (04/22) with Anemia of chronic disease -Seen by dermatology. Patient declined repeat biopsy. Given infectious work up of his wounds has been negative, Dermatology recommended clobetasol 0.05% ointment to be applied to wound edge twice daily -significant pain during dressing changes, stared on Iv fentanyl while inpatient prior to dressing changes. -Vit C and Vit B6 oral supplementation given levels for both are low. 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 Follow INR. Redose coumadin today 5 mg -Per patient , has established physician who monitors his INR closely and plans to follow up with same physician for INR check on discharge # Chronic hypotension, on home midodrine 20 mg TID DISPO: Once INR is therapeutic (Goal 2.5-3.5) Discussed plan of care with patient. SIGNATURE: Ana Daley MD, [facility] DATE of SERVICE: May 02, 2025 INPATIENT INTERNAL MEDICINE PROGRESS NOTE PATIENT NAME: Elia Weston ; AGE: 6 1980; 45 year old [address] DATE OF SERVICE: 05/02/2025 ATTENDING PHYSICIAN: Ana Daley MD TIME OF SERVICE: AM Rounds SERVICE: Inpatient Medicine service Admit Date: 04/20/2025 Length of Stay: 11 Reason for Admission: Bleeding from wounds. Brief Summary Mr. 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 Patient was hospitalized in September 2024 to October 2024 for pain and bleeding from the wounds. Patient was seen by dermatology back then for his skin ulcers. Biopsy performed and was most c/w reactive ischemic changes without features of Pyoderma Gangrenosum or Calciphylaxis. Now, plan for venoplasty with IR pending improvement in INR. Dermatology consulted, plan for starting topical steroid on wound edge. Interval Events/Subjective: - No acute events overnight, slept well overnight. - This morning, patient lying in bed comfortable. Denies pain, shortness of breath, or pain on his chest wounds. No new concerns. - Vitals: Afebrile, HR 62-91, low-stable SBP 90-125 with MAPs 64-87, on RA. - Warfain 5mg given yesterday - PRN: oxy 10mg q6h x2, no fent given past 24 hours - BM: 1 soft bowel movement. Objective: BP: 90/58 Temp: 36.8 ?C (98.2 ?F) Temp src: Oral Pulse: 80 Resp: 18 O2 Therapy: Continuous Positive Airway Pressure SpO2: 99 % Physical Exam GENERAL: Alert, no distress, cooperative SKIN: Chest wounds with dressing on them. Clean, dry, and intact. No signs of bleeding. Previously seen: R and L anterior and posterior chest wounds - chronic, bleeding, no purulent discharge. Right flank/back chronic wounds. Images scanned in chart. LUNGS: Lungs clear to auscultation bilaterally, no wheezes or crackles. CARDIAC: Regular rate and rhythm. No murmurs. ABDOMEN: Distended, non-tender. EXTREMITIES: No pitting edema on lower extremities bilaterally. Pertinent Labs: INR: 1.8 (goal of 2.5-3.5), BUN: 41, Cr: 8.39 elevated from yesterday but scheduled for dialysis today. Lines, Drains, and Airways Line Duration Peripheral 04/26/25 2[facility] Right Forearm 20 Gauge 5 days Dialysis / Apheresis Double Lumen 04/29/25 1005 [facility] Tunneled Right Internal Jugular 2 days Active Hospital Problems Diagnosis Bleeding from open wound of chest wall, right, initial encounter Skin ulcers (HCC) Hypervolemia Difficult intravenous access Consult IR prior to removal of any catheters Bleeding from wound Open chest wound, right, sequela Unknown etiology Open chest wound, left, sequela Unknown etiology Back wound, unspecified laterality, sequela - Mid Back - Unknown Etiology - POA - Right Upper Back - Unknown Etiology - POA Open wound of abdomen Unknown Etiology Open wound of right thigh Unknown Etiology Wounds, multiple Anemia due to multiple mechanisms Hemorrhage from open wound of left chest wall Ulcers, venous (HCC) Status post Maze operation for atrial fibrillation 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 Acquired hypothyroidism Adjustment disorder with depressed mood Acute on chronic blood loss anemia Supratherapeutic INR S/P MVR (mitral valve replacement) History: MR Assessment: 08/21/2021: OnX + posterior mitral annulus patch with bovine pericardial + Left CryoMAZE + Left atrial appendage ligation Plan: ASA, start Coumadin 08/24, hep gtt History of non-ST elevation myocardial infarction (NSTEMI) ESRD on hemodialysis (HCC) Atrial fibrillation (HCC) on Coumadin and Amiodarone Secondary hyperparathyroidism, renal (HCC) Reportedly elevated PTH High PhxCa ratio in the past Now with worsening metastatic calcifications Will recheck Ca, PO4, Vitamin D, and PTH Continue phosphate binders If PTH elevated, ? Need to calcimemtics to suppress the PTH Will discuss further with the nephrology team MEDICATIONS Current Facility-Administered Medications Medication Dose Route Frequency NaCl 0.9% iv flush bag 20 mL INTRAVENOUS PRN acetaminophen 650 mg tab(s) (TYLENOL) 650 mg ORAL q 6 H PRN aspirin 81 mg chewable tab(s) 81 mg ORAL DAILY midodrine 20 mg tab(s) (PROAMATINE) 20 mg ORAL q 8 H cinacalcet 60 mg tab(s) (SENSIPAR) 60 mg ORAL DAILY iv contrast (radiology procedure) INTRAVENOUS DIRECTED PRN sevelamer carbonate 800 mg tab(s) (RENVELA) 800 mg ORAL TID w MEALS oxyCODONE IR 10 mg tab(s) (ROXICODONE) 10 mg ORAL q 6 H PRN clobetasol topical ointment 0.05% (TEMOVATE) TOPICAL BID polyethylene glycol 3350 17 g packet 17 g ORAL DAILY calcitriol 1.5 mcg cap(s) (ROCALTROL) 1.5 mcg ORAL - LORazepam 0.25 mg tab(s) (ATIVAN) 0.25 mg ORAL DAILY PRN heparin iv infusion 25,000 units in NaCl 0.45% 250 mL LOW DOSE/ACS NOMOGRAM 0-3,000 Units/hr INTRAVENOUS CONTINUOUS And heparin RATE CHANGE bolus 1,000-4,000 Units for subtherapeutic PTTAC results 1,000-4,000 Units INTRAVENOUS PRN fentaNYL 50 mcg/mL 25 mcg injection (SUBLIMAZE) 25 mcg INTRAVENOUS DAILY PRN warfarin order for discharge OTHER PRN ascorbic acid 500 mg chewable tab(s) 500 mg ORAL DAILY pyridoxine (vitamin B6) 50 mg tab(s) (VITAMIN B6) 50 mg ORAL DAILY Labs: Glucose control: CBC: Recent Labs 05/01/25 0453 04/30/25 1248 04/29/25 1434 04/28/25 0145 04/27/25 0027 04/26/25 21104/26/25 1401 04/25/25 0751 WBC 5.61 5.45 5.75 6.07 5.86 6.68 6.07 6.22 HB 8.5* 9.7* 9.7* 8.7* 9.4* 8.4* 8.8* 8.0* HCT 28.7* 32.5* 32.5* 29.3* 31.8* 27.1* 29.9* 26.1* PLT 307 343 298 326 354 325 314 281 MCV 94.1 91.8 92.6 93.0 92.7 90.6 92.3 90.9 RDWCV 19.5* 19.4* 19.2* 19.1* 19.3* 19.0* 19.6* 19.4* COAG: Recent Labs 05/02/25 0216 05/01/25201005/01/25 1312 05/01/25 0453 04/30/25200404/30/25 1248 04/29/25 1434 04/28/25 1856 04/28/25 1219 04/28/25 0145 04/27/25 0704 04/27/25 0028 04/26/25211404/26/25 1401 APTT 44.1* 57.7* 46.1* 37.4* 40.6* 36.8* -- 48.0* 55.8* 43.5* < > 43.0* 41.2* -- INR 1.8* -- -- 1.8* -- 2.2* 1.6* -- -- 1.4* -- 1.7* 1.7* 1.9* < > = values in this interval not displayed. BMP: Recent Labs 05/02/25 0216 05/01/25 0453 04/30/25 1248 04/29/25 1434 04/28/25 0145 04/27/25 0028 04/26/25 1401 04/25/25 0800 GLUC 76 83 78 110* 75 72* 72* 68* NA 136 137 136 135* 136 136 137 135* K 5.1 4.8 4.8 5.2* 4.8 4.6 4.7 4.8 CHLOR 93* 93* 92* 95* 95* 94* 95* 95* CO2 23 27 25 22 22 22 26 23 ANION 20* 17* 19* 18* 19* 20* 16* 17* BUN 41* 31* 17 26* 14 24 20 26* CREAT 8.39* 6.66* 5.21* 7.29* 4.74* 6.69* 5.73* 7.04* CHEM: Recent Labs 05/02/25 0216 05/01/25 0453 04/30/25 1248 04/29/25143304/28/255 04/27/25 0028 04/26/25 1401 04/25/25 0800 ALB 3.5* 3.6* 3.8* 3.5* 3.2* 3.6* 3.3* 3.1* CA 7.5* 7.8* 8.6 7.8* 8.3* 8.2* 8.2* 7.8* HEPATIC: No results for input(s): ALKPHOS, ALT, AST, TBILI, LIPASE in the last 168 hours. URINALYSIS:No results for input(s): PH, SPGR, UGLUC, UBILI, UKET, UHB, UPROT, UROBIL, UWBC, SSA in the last 168 hours. Invalid input(s): NITR CARDIAC: No results for input(s): CKTEST, CKMB, CKMBP, TROPT, PBNP in the last 168 hours. MICROBIOLOGY: Positive Micro-30 Days No results found for the last 720 hours. Imaging: CXR 04/21/25: TDC with tip in RA. Increase of perihilar and basilar opacities with volume loss, suggesting atelectasis, possible underlying edema/inflammation. Blunting of L CP angle, which may represent tiny effusion or pleural thickening. CT A/P 04/22/25: No abdominal or pelvic subcutaneous fluid collection of gas. Redemonstrated diffuse subcutaneous extensive abdominal wall collaterals, similar to prior CTA 10/17/2024. CT chest 04/22/25: extensive chest wall collaterals, few areas of skin ulceration, no areas of drainable fluid collection. Findings consistent with central venous stenoses. Few patchy groundglass opacities, may be related to mild pulm edema Assessment AND Plan: Elia Weston is a 45 year old male with extensive PMH, significant for ESRD on HD (MWF) last session 04/18 (skipped Friday since he came to ED), CAD s/p CABG, severe MS s/p MVR on Warfarin, pAfib s/p maze procedure and RADHA clip and chronic chest/abdominal/back wounds (3 years) likely secondary to ischemia in context of SVC syndrome and multiple thrombosis, who presented to the ED with 1-day of left chronic chest wound bleeding. Admitted for management of bleeding, and on transfer to [facility], patient began to have significant bleeding from R chest wound. Continuous pressure was applied and bleeding stopped. Now s/p FFP and RBC transfusions as appropriate. Initially started on Vanc/Zosyn given elevated ESR/CRP and WBC, no infectious concern on further imaging with improved lactate WBC, so abx were stopped. Dermatology and wound care consulted. IR consulted, planning for venoplasty given INR reversal. 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 Hx of hemorrhagic shock from bleeding abdominal wounds - presenting with acute worsening of pain and bleeding from wounds. Denies purulent discharge from wounds. - Leukocytosis + Elevated CRP 22.1 and ESR 133 + Elevated lactate on presentation; concerned for infected wounds/soft tissue infection. Started on IV vanc/zosyn, later d/janie due to low infectious concern (04/21-04/25) - On admission, acute rise in lactate in light of acute significant bleeding and drop in HGB (8.6 from 9.5 in ED) likely secondary to hypovolemia, also missed dialysis - CT venogram on 10/19/24 with b/l brachiocephalic stenosis w b/l subclavian vein occlusion, extensive venous collaterals - 10/22/24: Venoplasty completed by IR, removed L femoral TDC, exchanged R TDC - blood cultures 04/20/25 with NG5D x2 - AMET for hypotension 80/50, s/p 500 cc LR bolus, scheduled midodrine with improved repeat 102/63 - lactate 2.4 from 1.7, improved from 3.2 at admission. Completed 5d course of IV vanc/zosyn (04/21-04/25) - CT chest and CT A/P 04/22/25 with no drainable fluid collections, extensive chest collaterals - nutritional workup: B12 elevated, folate wnl, iron low 26, TIBC low 137, trans sat wnl, low vit D 22.9, zinc 69 wnl, low vit A 0.10 - 04/29/25: Venoplasty: completed by IR. 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 Right upper chest tunneled dialysis catheter was exchanged over a wire for a new on; ready for use PLAN: - IR consulted: > venoplasty 04/29/2025 - no complications - Derm consulted: > ongoing nutritional workup > continue clobetasol 0.05% ointment BID, lesion over R scapula, try to simulate tx of PG and assess response - continue vitamin D supplement 5000 unit(s), ascorbic acid 500mg/day, vit B6 50mg/day - wound care team consulted, appreciate care - pain control: tylenol 650 mg q6h prn and oxycodone 10 mg po q6h PRN. > IV fent for dressing changes - plastic surgery consulted: > no indication for surgical intervention at this time - Cautious fluid resuscitation in light of acute bleeding and ESRD anuric on HD #Supratherapeutic INR #CAD s/p CABG #Severe MS s/p mechanical MVR on coumadin #Paroxysmal Afib s/p multiple DCCV s/p Maze procedure + RADHA clip (07/2021) - atrial fibrillation and severe mitral stenosis s/p mechanical mitral valve replacement with On-x valve (INR goal 2.5-3.5), Maze procedure and RADHA clip on 08/21/2021. - Goal INR 2.5- 3.5; on warfarin 2.5 mg daily although patient not sure of dose, has been changed recently; last dose of warfarin Thursday 04/19 - INR elevated to 5.1 on admission, improved to 3.9 s/p 2u FFP 04/21 - possible etiology of supratherapeutic INR: warfarin dose (given patient not sure of home dose) vs malnutrition vs liver disease (less likely given AST/ALT wnl) - INR elevated again to 5.3, patient received po vitamin K 5 mg 04/25. Improved to 1.7 PLAN: - given subtherapeutic INR and no intervention by plastic surgery planned, continue bridging to warfarin > goal INR 2.5 - 3.5, given mechanical valve. - INR 1.8 on 05/02/25 - continue heparin gtt, bridge with warfarin (to give 6mg today) - Daily INR - Follows with Dr. Moreno (cardiology in [place]) for mgmt of Coumadin, will need follow-up outpatient #ESRD on HD via Right TDC #Chronic Hypotension #Secondary Hyperparathyroidism - iHD at [facility] through R. Tunneled HD catheter MWF - Last dialysis session Friday04/18/2025; missed Fri session because he presented to [facility] ED - anuric at baseline per patient - Serum P=9.7 - completed HD 04/21, now on MWF - PTH elevated 578, Ca 8.3 low PLAN: - nephrology consulted: > continue MWF HD schedule > continue calcitriol MWF - Continue Sensipar, renvela with meals - continue home Midodrine 20mg daily #Anemia of Chronic Disease/ESRD - Baseline hemoglobin 9-11 - iron studies 12/2024: iron 33, TIBC 156, Iron sat 21, ferritin 1327 - Hgb dropping iso bleeding wounds, as above. - received 1u pRBC 04/21, Hgb from 7.3 -> 7.7 post-transfusion - Hgb 6.9 on 04/22, s/p additional 2u pRBC with Hgb in ~8s PLAN: - Hgb goal >8 - chronic wound mgmt, as above #Code status - Full # Diet - renal # VTE PPx - heparin gtt, bridge to warfarin # Dispo Planning - Pending clinical course, SW consulted for recent unemployment, c/f food insecurity These recommendations and plan are not final until co-signed by the attending physician Ana Daley MD. Giovanna Chowdhury, DO PGY-1 Neurology PT PNL PPP Collected: 05/02/2025 2:16 AM Status: F Source: [facility] Order Comment: Specimen Type : BLOOD SPECIMEN Ordering Facility: [facility] Address: [address] [place] [address] TYPE CODE TESTS RESULT OUT OF RANGE REFERENCE UNITS LAB 5902-2(LOINC) Prothrombin time 18.6 High 9.7-13.0 sec LAB 6301-6(LOINC) INR PPP 1.8 High 0.9-1.3 Result Comment: Vitamin K An tagonist (VKA) Therapeutic Range: INR 2 to 3 (Target INR of 2.5) Note: For patients treated with VKA drugs, such as warfarin, the [place] [employer] 2012 Guideline recommends a therapeutic INR range of 2 to 3 (target INR of 2.5). This recommendation includes high-risk patients with antiphospholipid syndrome with previous arterial or venous thromboembolism, current-generation mechanical or bioprosthetic aortic heart valve replacement. Note: Patients with mechanical aortic valve replacement and additional risk factors for thromboembolic events (atrial fibrillation, previous thromboembolism, LV dysfunction, hypercoagulable conditions) or an older generation mechanical AVR (i.e., ball in-Cage) or any mechanical MVR should have a INR therapeutic range of 2.5 to 3.5 (target INR of 3). Ranjit GH, et al. Chest 2012, 141:7S-47S Kevin RA et al. [facility] 2017, 70: 252-289 Performed By: #### PTTAC, 34 528-0 #### [facility] CLIA [id number] [address] [place] [address] [place] PTT, ANTICOAGULANT THERAPY Collected: 0 05/02/2025 2:16 AM Status: F Source: [facility] Order Comment: Specimen Type : BLOOD SPECIMEN Ordering Facility: [facility] Address: [address] [place] [address] TYPE CODE TESTS RESULT OUT OF RANGE REFERENCE UNITS LAB 34283-6(LOINC) aPTT PPP 44.1 High 23.0-32.4 sec Performed By: #### PTTAC, 34 528-0 #### [facility] CLIA [id number] [address] [place] [address] OF [place] [facility] 2000 PNL SERPL Collected: 2:16 AM Status: F Source: [facility] Comment: Specimen Type : BLOOD SPECIMEN Ordering Facility: [facility] Address: [address] [place] [address] TYPE CODE TESTS RESULT OUT OF RANGE REFERENCE UNITS LAB 1751-7(LOINC) Albumin SerPl-mCnc 3.5 Low 3.9-4.9 g/dL LAB 36263-8(LOINC) Calcium SerPl-mCnc 7.5 Low 8.5-10.2 mg/dL LAB 2777-1(LOINC) Phosphate SerPl-mCnc 6.0 High 2.7-4.8 mg/dL LAB 2345-7(LOINC) Glucose SerPl-mCnc 76 74-99 mg/dL Result Comment: The [place] Diabetes Association (ADA) provides guidance for cutoff values for fasting glucose and random glucose. The ADA defines fasting as no caloric intake for at least 8 hours. Fasting plasma glucose results between 100 to 125 mg/dL indicate increased risk for diabetes (prediabetes). Fasting plasma glucose results greater than or equal to 126 mg/dL meet the criteria for diagnosis of diabetes. In the absence of unequivocal hyperglycemia, results should be confirmed by repeat testing. In a patient with classic symptoms of hyperglycemia or hyperglycemic crisis, random plasma glucose results greater than or equal to 200 mg/dL meet the criteria for diagnosis of diabetes. Reference: Standards of Medical Care in Diabetes 2016, [place] Diabetes Association. Diabetes Care. 2016.39(Suppl 1). LAB 3094-0(LOINC) BUN SerPl-mCnc 41 High 9-24 mg/dL LAB 2160-0(LOINC) Creat SerPl-mCnc 8.39 High 0.73-1.22 mg/dL LAB 2951-2(LOINC) Sodium SerPl-sCnc 136 136-144 mmol/L LAB 2823-3(LOINC) Potassium SerPl-sCnc 5.1 3.7-5.1 mmol/L LAB 2075-0(LOINC) Chloride SerPl-sCnc 93 Low 98-107 mmol/L LAB 2027-9(LOINC) CO2 SerPl-sCnc 23 22-30 mmol/L LAB 94843-4(LOINC) Anion Gap SerPl-sCnc 20 High 8-15 mmol/L LAB 32615-2(LOINC) eGFRcr SerPlBld CKD-EPI 2020 7 Low >=60 mL/min/1. 73m??? Result Comment: Estimated Gl omerular Filtration Rate (eGFR) is calculated using the 2020 CKD-EPI creatinine equation. This equation utilizes serum creatinine, sex, and age as parameters. The creatinine assay has traceable calibration to isotope dilution-mass spectrometry. Refer to KDIGO guidelines for clinical interpretation. In patients with unstable renal function, e.g. those with acute kidney injury, the eGFR may not accurately reflect actual GFR. Performed By: #### 01700-5 # ### [facility] CLIA [id number] [address] [place] [address] STATES [facility] PTT, ANTICOAGULANT THERAPY Collected: 0 05/01/2025 8:11 PM Status: F Source: [facility] Order Comment: Specimen Type : BLOOD SPECIMEN Ordering Facility: [facility] Address: [address] [place] [address] TYPE CODE TESTS RESULT OUT OF RANGE REFERENCE UNITS LAB 22378-7(INC) aPTT PPP 57.7 High 23.0-32.4 sec Performed By: #### PTTAC ### # [facility] CLIA [id number] [address] [place] [address] OF [facility] PTT, ANTICOAGULANT THERAPY Collected: 0 05/01/2025 1:12 PM Status: F Source: [facility] Order Comment: Specimen Type : BLOOD SPECIMEN Ordering Facility: [facility] Address: [address] [place] [address] TYPE CODE TESTS RESULT OUT OF RANGE REFERENCE UNITS LAB 03394-3(LOINC) aPTT PPP 46.1 High 23.0-32.4 sec Performed By: #### PTTAC ### # [facility] CLIA [id number] [address] [place] [address] STATES OF [facility] PROGRESS Observed: 05/01/2025 5:57 AM Status: COMPLETED Source: [facility] HNO ID: [id number] Author: ANA DALEY MD Service: General Internal Medicine Author Type: Resident Type: Progress Notes Filed: 05/01/2025 16:20 Note Text: Attestation signed by Ana Daley MD at 05/01/2025 4:20 PM [facility] STAFF PHYSICIAN NOTE OF PERSONAL INVOLVEMENT IN CARE I have reviewed the progress note obtained and documented by the resident and I personally participated in the mendoza components. I have discussed the case and management of the patient's care. The following comments revise or confirm relevant mendoza components of their note. Patient was seen and examined. No new complaints except that he reports had significant pain over wounds last night. Currently better. On prn Po meds and IV fentanyl prior to dressing changes given significant pain acutely with dressing changes. is requesting IV pain med before dressing changes while in the hospital. Reports wounds no longer have been bleeding. H/H stable. 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 c/b chronic chest wall and abdominal varices and venous wounds, CAD, Atrial fibrillation and Severe mitral stenosis s/p CABG, MV replacement with On-x valve, Maze procedure and RADHA clip (08/21/2021), on Coumadin (INR goal 2.5-3.5), Secondary Hyperparathyroidism, Chronic hypotension on midodrine 20mg PO TID, Anemia of CKD and recent admission ([place] 02/16/2025 - ) for R Chest wall wound infection received Vancomycin and Zosyn who is currently admitted after he presented with left chronic chest wall wound bleeding # Venous bleeding from chronic chest wall venous ulcers (also in the setting of being on anticoagulation). Bleeding resolved # Blood loss anemia from above s/p 1 pRBC (04/21) and 2 pRBC (04/22) with Anemia of chronic disease -Seen by dermatology. Patient declined repeat biopsy. Given infectious work up of his wounds has been negative, Dermatology recommended clobetasol 0.05% ointment to be applied to wound edge twice daily -significant pain during dressing changes, stared on Iv fentanyl while inpatient prior to dressing changes. -Vit C and Vit B6 oral supplementation given levels for both are low. 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 Follow INR. Redose coumadin today 5 mg -Per patient , has established physician who monitors his INR closely and plans to follow up with same physician for INR check on discharge # Chronic hypotension, on home midodrine 20 mg TID DISPO: Once INR is therapeutic (Goal 2.5-3.5) Discussed plan of care with patient. SIGNATURE: Ana Daley MD, FACP, [facility] DATE of SERVICE: May 01, 2025 INPATIENT INTERNAL MEDICINE PROGRESS NOTE PATIENT NAME: Elia Weston ; AGE: 6 1980; 45 year old HOSPITAL ROOM: [place] [address] DATE OF SERVICE: 05/01/2025 ATTENDING PHYSICIAN: Ana Daley MD TIME OF SERVICE: AM Rounds SERVICE: Inpatient Medicine service Admit Date: 04/20/2025 Length of Stay: 10 Reason for Admission: Bleeding from wounds. Brief Summary Mr. 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 Patient was hospitalized in September 2024 to October 2024 for pain and bleeding from the wounds. Patient was seen by dermatology back then for his skin ulcers. Biopsy performed and was most c/w reactive ischemic changes without features of Pyoderma Gangrenosum or Calciphylaxis. Now, plan for venoplasty with IR pending improvement in INR. Dermatology consulted, plan for starting topical steroid on wound edge. Interval Events/Subjective: - Received warfarin 3 mg. No acute events overnight, received oxy for pain. - This morning, patient lying in bed comfortable. Denies pain, shortness of breath. - Vitals: Afebrile, HR 63-75, low-stable SBP 94-128 with MAPs 67-91, on RA. - PRN: oxy 10mg q6h x3, fent with dressing change x1 Objective: BP: 103/65 Temp: 36.3 ?C (97.3 ?F) Temp src: Oral Pulse: 68 Resp: 18 O2 Therapy: Room Air SpO2: 96 % Physical Exam GENERAL: Alert, no distress, cooperative SKIN: Patient continues to decline examination of wounds. Wounds non-bleeding. Previously seen: R and L anterior and posterior chest wounds - chronic, bleeding, no purulent discharge. Right flank/back chronic wounds. Images scanned in chart. LUNGS: Lungs clear to auscultation bilaterally, no wheezes or crackles. CARDIAC: Regular rate and rhythm. Normal S1 and S2; no rubs, murmurs, or gallops ABDOMEN: Distended, non-tender. EXTREMITIES: No LE edema NEURO: AxOx3, following commands and answering questions appropriately. Lines, Drains, and Airways Line Duration Peripheral 04/26/25 2[facility] Right Forearm 20 Gauge 4 days Dialysis / Apheresis Double Lumen 04/29/25 1005 [facility] Tunneled Right Internal Jugular 1 day Active Hospital Problems Diagnosis Bleeding from open wound of chest wall, right, initial encounter Skin ulcers (HCC) Hypervolemia Difficult intravenous access Consult IR prior to removal of any catheters Bleeding from wound Open chest wound, right, sequela Unknown etiology Open chest wound, left, sequela Unknown etiology Back wound, unspecified laterality, sequela - Mid Back - Unknown Etiology - POA - Right Upper Back - Unknown Etiology - POA Open wound of abdomen Unknown Etiology Open wound of right thigh Unknown Etiology Wounds, multiple Anemia due to multiple mechanisms Hemorrhage from open wound of left chest wall Ulcers, venous (HCC) Status post Maze operation for atrial fibrillation 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 Acquired hypothyroidism Adjustment disorder with depressed mood Acute on chronic blood loss anemia Supratherapeutic INR S/P MVR (mitral valve replacement) History: MR Assessment: 08/21/2021: OnX + posterior mitral annulus patch with bovine pericardial + Left CryoMAZE + Left atrial appendage ligation Plan: ASA, start Coumadin 08/24, hep gtt History of non-ST elevation myocardial infarction (NSTEMI) ESRD on hemodialysis (HCC) Atrial fibrillation (HCC) on Coumadin and Amiodarone Secondary hyperparathyroidism, renal (HCC) Reportedly elevated PTH High PhxCa ratio in the past Now with worsening metastatic calcifications Will recheck Ca, PO4, Vitamin D, and PTH Continue phosphate binders If PTH elevated, ? Need to calcimemtics to suppress the PTH Will discuss further with the nephrology team MEDICATIONS Current Facility-Administered Medications Medication Dose Route Frequency NaCl 0.9% iv flush bag 20 mL INTRAVENOUS PRN acetaminophen 650 mg tab(s) (TYLENOL) 650 mg ORAL q 6 H PRN aspirin 81 mg chewable tab(s) 81 mg ORAL DAILY midodrine 20 mg tab(s) (PROAMATINE) 20 mg ORAL q 8 H cinacalcet 60 mg tab(s) (SENSIPAR) 60 mg ORAL DAILY iv contrast (radiology procedure) INTRAVENOUS DIRECTED PRN sevelamer carbonate 800 mg tab(s) (RENVELA) 800 mg ORAL TID w MEALS oxyCODONE IR 10 mg tab(s) (ROXICODONE) 10 mg ORAL q 6 H PRN clobetasol topical ointment 0.05% (TEMOVATE) TOPICAL BID polyethylene glycol 3350 17 g packet 17 g ORAL DAILY calcitriol 1.5 mcg cap(s) (ROCALTROL) 1.5 mcg ORAL - LORazepam 0.25 mg tab(s) (ATIVAN) 0.25 mg ORAL DAILY PRN heparin iv infusion 25,000 units in NaCl 0.45% 250 mL LOW DOSE/ACS NOMOGRAM 0-3,000 Units/hr INTRAVENOUS CONTINUOUS And heparin RATE CHANGE bolus 1,000-4,000 Units for subtherapeutic PTTAC results 1,000-4,000 Units INTRAVENOUS PRN fentaNYL 50 mcg/mL 25 mcg injection (SUBLIMAZE) 25 mcg INTRAVENOUS DAILY PRN Labs: Glucose control: CBC: Recent Labs 05/01/25 0453 04/30/25 1248 04/29/25 1434 04/28/25 0145 04/27/25 0027 04/26/25 2116 04/26/25 1401 04/25/25 0751 WBC 5.61 5.45 5.75 6.07 5.86 6.68 6.07 6.22 HB 8.5* 9.7* 9.7* 8.7* 9.4* 8.4* 8.8* 8.0* HCT 28.7* 32.5* 32.5* 29.3* 31.8* 27.1* 29.9* 26.1* PLT 307 343 298 326 354 325 314 281 MCV 94.1 91.8 92.6 93.0 92.7 90.6 92.3 90.9 RDWCV 19.5* 19.4* 19.2* 19.1* 19.3* 19.0* 19.6* 19.4* COAG: Recent Labs 05/01/25 0453 08/11/23 200404/30/25124704/29/25 14304/28/25 1856 04/28/25 1219 04/28/25 0145 04/27/25 1945 04/27/25 1425 04/27/25 0704 04/27/25 0028 04/26/25 2115 04/26/25 1401 04/25/25 1033 APTT 37.4* 40.6* 36.8* -- 48.0* 55.8* 43.5* 53.5* 40.9* < > 43.0* 41.2* -- 75.7* INR 1.8* -- 2.2* 1.6* -- -- 1.4* -- -- -- 1.7* 1.7* 1.9* 5.3* < > = values in this interval not displayed. BMP: Recent Labs 04/30/25124704/29/25143304/28/2514404/27/25 0028 04/26/25 1401 04/25/25 0800 04/24/25 0645 GLUC 78 110* 75 72* 72* 68* 79 NA 136 135* 136 136 137 135* 133* K 4.8 5.2* 4.8 4.6 4.7 4.8 4.6 CHLOR 92* 95* 95* 94* 95* 95* 94* CO2 25 22 22 22 26 23 23 ANION 19* 18* 19* 20* 16* 17* 16* BUN 17 26* 14 24 20 26* 14 CREAT 5.21* 7.29* 4.74* 6.69* 5.73* 7.04* 4.83* CHEM: Recent Labs 04/30/25124704/29/25143304/28/2514404/27/25 0028 04/26/25 14004/25/25 0800 04/24/25 0645 ALB 3.8* 3.5* 3.2* 3.6* 3.3* 3.1* 3.1* CA 8.6 7.8* 8.3* 8.2* 8.2* 7.8* 8.7 HEPATIC: No results for input(s): ALKPHOS, ALT, AST, TBILI, LIPASE in the last 168 hours. URINALYSIS:No results for input(s): PH, SPGR, UGLUC, UBILI, UKET, UHB, UPROT, UROBIL, UWBC, SSA in the last 168 hours. Invalid input(s): NITR CARDIAC: No results for input(s): CKTEST, CKMB, CKMBP, TROPT, PBNP in the last 168 hours. MICROBIOLOGY: Positive Micro-30 Days No results found for the last 720 hours. Imaging: CXR 04/21/25: TDC with tip in RA. Increase of perihilar and basilar opacities with volume loss, suggesting atelectasis, possible underlying edema/inflammation. Blunting of L CP angle, which may represent tiny effusion or pleural thickening. CT A/P 04/22/25: No abdominal or pelvic subcutaneous fluid collection of gas. Redemonstrated diffuse subcutaneous extensive abdominal wall collaterals, similar to prior CTA 10/17/2024. CT chest 04/22/25: extensive chest wall collaterals, few areas of skin ulceration, no areas of drainable fluid collection. Findings consistent with central venous stenoses. Few patchy groundglass opacities, may be related to mild pulm edema Assessment AND Plan: Elia Weston is a 45 year old male with extensive PMH, significant for ESRD on HD (MWF) last session 04/18 (skipped Friday since he came to ED), CAD s/p CABG, severe MS s/p MVR on Warfarin, pAfib s/p maze procedure and RADHA clip and chronic chest/abdominal/back wounds (3 years) likely secondary to ischemia in context of SVC syndrome and multiple thrombosis, who presented to the ED with 1-day of left chronic chest wound bleeding. Admitted for management of bleeding, and on transfer to [facility], patient began to have significant bleeding from R chest wound. Continuous pressure was applied and bleeding stopped. Now s/p FFP and RBC transfusions as appropriate. Initially started on Vanc/Zosyn given elevated ESR/CRP, no infectious concern on further imaging with improved lactate WBC, so abx were stopped. Dermatology and wound care consulted. IR consulted, planning for venoplasty given INR reversal. 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 Hx of hemorrhagic shock from bleeding abdominal wounds - presenting with acute worsening of pain and bleeding from wounds. Denies purulent discharge from wounds. - Leukocytosis + Elevated CRP 22.1 and ESR 133 + Elevated lactate on presentation; concerned for infected wounds/soft tissue infection. Started on IV vanc/zosyn, later d/janie due to low infectious concern (04/21-04/25) - On admission, acute rise in lactate in light of acute significant bleeding and drop in HGB (8.6 from 9.5 in ED) likely secondary to hypovolemia, also missed dialysis - CT venogram on 10/19/24 with b/l brachiocephalic stenosis w b/l subclavian vein occlusion, extensive venous collaterals - 10/22/24: Venoplasty completed by IR, removed L femoral TDC, exchanged R TDC - blood cultures 04/20/25 with NG5D x2 - AMET for hypotension 80/50, s/p 500 cc LR bolus, scheduled midodrine with improved repeat 102/63 - lactate 2.4 from 1.7, improved from 3.2 at admission. Completed 5d course of IV vanc/zosyn (04/21-04/25) - CT chest and CT A/P 04/22/25 with no drainable fluid collections, extensive chest collaterals - nutritional workup: B12 elevated, folate wnl, iron low 26, TIBC low 137, trans sat wnl, low vit D 22.9, zinc 69 wnl, low vit A 0.10 PLAN: - IR consulted: > venoplasty 04/29/2025 - no complications - Derm consulted: > ongoing nutritional workup > continue clobetasol 0.05% ointment BID, lesion over R scapula, try to simulate tx of PG and assess response - continue vitamin D supplement 5000 u - wound care team consulted, appreciate care - pain control: tylenol 650 mg q6h prn and oxycodone 10 mg po q6h PRN. > IV fent for dressing changes - plastic surgery consulted: > no indication for surgical intervention at this time - Cautious fluid resuscitation in light of acute bleeding and ESRD anuric on HD #Supratherapeutic INR #CAD s/p CABG #Severe MS s/p mechanical MVR on coumadin #Paroxysmal Afib s/p multiple DCCV s/p Maze procedure + RADHA clip (07/2021) - atrial fibrillation and severe mitral stenosis s/p mechanical mitral valve replacement with On-x valve (INR goal 2.5-3.5), Maze procedure and RADHA clip on 08/21/2021. - Goal INR 2.5- 3.5; on warfarin 2.5 mg daily although patient not sure of dose, has been changed recently; last dose of warfarin Thursday 04/19 - INR elevated to 5.1 on admission, improved to 3.9 s/p 2u FFP 04/21 - possible etiology of supratherapeutic INR: warfarin dose (given patient not sure of home dose) vs malnutrition vs liver disease (less likely given AST/ALT wnl) - INR elevated again to 5.3, patient received po vitamin K 5 mg 04/25. Improved to 1.7 PLAN: - given subtherapeutic INR and no intervention by plastic surgery planned, continue bridging to warfarin > goal INR 2.5 - 3.5, given mechanical valve - continue heparin gtt - Daily INR - Follows with Dr. Moreno (cardiology in [place]) for mgmt of Coumadin, will need follow-up outpatient #ESRD on HD via Right TDC #Chronic Hypotension #Secondary Hyperparathyroidism - iHD at [facility] through R. Tunneled HD catheter MWF - Last dialysis session Friday04/18/2025; missed Fri session because he presented to [facility] ED - anuric at baseline per patient - Serum P=9.7 - completed HD 04/21, now on MWF - PTH elevated 578, Ca 8.3 low PLAN: - nephrology consulted: > continue MWF HD schedule > continue calcitriol MWF - Continue Sensipar, renvela with meals - continue home Midodrine 20mg daily #Anemia of Chronic Disease/ESRD - Baseline hemoglobin 9-11 - iron studies 12/2024: iron 33, TIBC 156, Iron sat 21, ferritin 1327 - Hgb dropping iso bleeding wounds, as above. - received 1u pRBC 04/21, Hgb from 7.3 -> 7.7 post-transfusion - Hgb 6.9 on 04/22, s/p additional 2u pRBC with Hgb in ~8s PLAN: - Hgb goal >8 - chronic wound mgmt, as above #Code status - Full # Diet - renal # VTE PPx - heparin gtt, bridge to warfarin # Dispo Planning - Pending clinical course, SW consulted for recent unemployment, c/f food insecurity These recommendations and plan are not final until co-signed by the attending physician Ana Daley MD. Parker Moe MD PGY-1 05/01/2025 5:57 AM PT PNL PPP Collected: 05/01/2025 4:53 AM Status: F Source: [facility] Order Comment: Specimen Type : BLOOD SPECIMEN Ordering Facility: [facility] Address: [address] [place] [address] TYPE CODE TESTS RESULT OUT OF RANGE REFERENCE UNITS LAB 5902-2(LOINC) Prothrombin time 18.7 High 9.7-13.0 sec LAB 6301-6(LOINC) INR PPP 1.8 High 0.9-1.3 Result Comment: Vitamin K An tagonist (VKA) Therapeutic Range: INR 2 to 3 (Target INR of 2.5) Note: For patients treated with VKA drugs, such as warfarin, the [place] [employer] 2012 Guideline recommends a therapeutic INR range of 2 to 3 (target INR of 2.5). This recommendation includes high-risk patients with antiphospholipid syndrome with previous arterial or venous thromboembolism, current-generation mechanical or bioprosthetic aortic heart valve replacement. Note: Patients with mechanical aortic valve replacement and additional risk factors for thromboembolic events (atrial fibrillation, previous thromboembolism, LV dysfunction, hypercoagulable conditions) or an older generation mechanical AVR (i.e., ball in-Cage) or any mechanical MVR should have a INR therapeutic range of 2.5 to 3.5 (target INR of 3). Ranjit YOUSSEF, et al. Chest 2012, 141:7S-47S Kevin RUSHING et al. [facility] 2017, 70: 252-289 Performed By: #### 64683-7, 99767-9 #### [facility] CLIA [id number] [address] [place] [address] [place] APTT PPP Collected: 5 4:53 AM Status: F Source: [facility] Comment: Specimen Type : BLOOD SPECIMEN Ordering Facility: [facility] Address: [address] [place] [address] TYPE CODE TESTS RESULT OUT OF RANGE REFERENCE UNITS LAB 46553-2([facility]) aPTT PPP 37.4 High 23.0-32.4 sec Performed By: #### 91768-3, 39525-9 #### [facility] CLIA [id number] [address] [place] [address] [place] CBC PNL BLD AUTO Collected: 5 4:53 AM Status: F Source: [facility] Comment: Specimen Type : BLOOD SPECIMEN Ordering Facility: [facility] Address: [address] [place] [address] TYPE CODE TESTS RESULT OUT OF RANGE REFERENCE UNITS LAB 6690-2(INC) WBC # Bld Auto 5.61 3.70-11.00 k/uL LAB 789-8(INC) RBC # Bld Auto 3.05 Low 4.20-6.00 m/uL LAB 718-7(LOINC) Hgb Bld-mCnc 8.5 Low 13.0-17.0 g/dL LAB 4544-3(INC) Hct VFr Bld Auto 28.7 Low 39.0-51.0 % LAB 787-2(LOINC) MCV RBC Auto 94.1 80.0-100.0 fL LAB 785-6(LOINC) MCH RBC Qn Auto 27.9 26.0-34.0 pg LAB 786-4(LOINC) MCHC RBC Auto-mCnc 29.6 Low 30.5-36.0 g/dL LAB 06556-5(LOINC) RDW RBC-Rto 19.5 High 11.5-15.0 % LAB 777-3(LOINC) Platelet # Bld Auto 307 150-400 k/uL LAB 48129-0([facility]) PMV Bld Auto 10.9 9.0-12.7 fL LAB 771-6(LOINC) nRBC # Bld Auto <0.01 <0.01 k/uL Performed By: #### 33089-4 # ### [facility] CLIA [id number] [address] [place] [address] [place] [address] [place] RENAL FUNC 2000 PNL SERPL Collected: 4:53 AM Status: F Source: [facility] Order Comment: Specimen Type : BLOOD SPECIMEN Ordering Facility: [facility] Address: [address] [place] [address] TYPE CODE TESTS RESULT OUT OF RANGE REFERENCE UNITS LAB 1751-7(LOINC) Albumin SerPl-mCnc 3.6 Low 3.9-4.9 g/dL LAB 54508-1(LOINC) Calcium SerPl-mCnc 7.8 Low 8.5-10.2 mg/dL LAB 2777-1(LOINC) Phosphate SerPl-mCnc 5.9 High 2.7-4.8 mg/dL LAB 2345-7(LOINC) Glucose SerPl-mCnc 83 74-99 mg/dL Result Comment: The [place] Diabetes Association (ADA) provides guidance for cutoff values for fasting glucose and random glucose. The ADA defines fasting as no caloric intake for at least 8 hours. Fasting plasma glucose results between 100 to 125 mg/dL indicate increased risk for diabetes (prediabetes). Fasting plasma glucose results greater than or equal to 126 mg/dL meet the criteria for diagnosis of diabetes. In the absence of unequivocal hyperglycemia, results should be confirmed by repeat testing. In a patient with classic symptoms of hyperglycemia or hyperglycemic crisis, random plasma glucose results greater than or equal to 200 mg/dL meet the criteria for diagnosis of diabetes. Reference: Standards of Medical Care in Diabetes 2016, [place] Diabetes Association. Diabetes Care. 2016.39(Suppl 1). LAB 3094-0(LOINC) BUN SerPl-mCnc 31 High 9-24 mg/dL LAB 2160-0(LOINC) Creat SerPl-mCnc 6.66 High 0.73-1.22 mg/dL LAB 2951-2(LOINC) Sodium SerPl-sCnc 137 136-144 mmol/L LAB 2823-3(LOINC) Potassium SerPl-sCnc 4.8 3.7-5.1 mmol/L LAB 2075-0(LOINC) Chloride SerPl-sCnc 93 Low 98-107 mmol/L LAB 2027-9(LOINC) CO2 SerPl-sCnc 27 22-30 mmol/L LAB 19643-5(LOINC) Anion Gap SerPl-sCnc 17 High 8-15 mmol/L LAB 46737-1(LOINC) eGFRcr SerPlBld CKD-EPI 2020 10 Low >=60 mL/min/1. 73m??? Result Comment: Estimated Gl omerular Filtration Rate (eGFR) is calculated using the 2020 CKD-EPI creatinine equation. This equation utilizes serum creatinine, sex, and age as parameters. The creatinine assay has traceable calibration to isotope dilution-mass spectrometry. Refer to KDIGO guidelines for clinical interpretation. In patients with unstable renal function, e.g. those with acute kidney injury, the eGFR may not accurately reflect actual GFR. Performed By: #### 00351-8 # ### [facility] CLIA [id number] [address] [place] [address] PTT, ANTICOAGULANT THERAPY Collected: 0 04/30/2025 8:05 PM Status: F Source: [facility] Order Comment: Specimen Type : BLOOD SPECIMEN Ordering Facility: [facility] Address: [address] [place] [address] TYPE CODE TESTS RESULT OUT OF RANGE REFERENCE UNITS LAB 39352-4([facility]) aPTT PPP 40.6 High 23.0-32.4 sec Performed By: #### PTTAC ### # [facility] CLIA [id number] [address] [place] [address] OF [facility] PROGRESS Observed: 04/30/2025 12:49 PM Status: COMPLETED Source: [facility] HNO ID: [id number] Author: ANA DALEY MD Service: General Internal Medicine Author Type: Resident Type: Progress Notes Filed: 04/30/2025 17:22 Note Text: Attestation signed by Ana Daley MD at 04/30/2025 5:22 PM [facility] STAFF PHYSICIAN NOTE OF PERSONAL INVOLVEMENT IN CARE I have reviewed the progress note obtained and documented by the resident and I personally participated in the mendoza components. I have discussed the case and management of the patient's care. The following comments revise or confirm relevant mendoza components of their note. Assuming care of patient from Dr. Raymond Verbal and written sign-out received. Patient was seen and examined. No new complaints except that he is requesting IV pain med before dressing changes while in the hospital. 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 c/b chronic chest wall and abdominal varices and venous wounds, CAD, Atrial fibrillation and Severe mitral stenosis s/p CABG, MV replacement with On-x valve, Maze procedure and RADHA clip (08/21/2021), on Coumadin (INR goal 2.5-3.5), Secondary Hyperparathyroidism, Chronic hypotension on midodrine 20mg PO TID, Anemia of CKD and recent admission ([place] 02/16/2025 - ) for R Chest wall wound infection received Vancomycin and Zosyn who is currently admitted after he presented with left chronic chest wall wound bleeding # Venous bleeding from chronic chest wall venous ulcers (also in the setting of being on anticoagulation). Bleeding resolved # Blood loss anemia from above s/p 1 pRBC (04/21) and 2 pRBC (04/22) with Anemia of chronic disease -Seen by dermatology. Patient declined repeat biopsy. Given infectious work up of his wounds has been negative, Dermatology recommended clobetasol 0.05% ointment to be applied to wound edge twice daily -significant pain during dressing changes, stared on Iv fentanyl while inpatient prior to dressing changes. 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 Follow INR. Redose coumadin today 3 mg -Will clarify who follows his INR as outpatient # Chronic hypotension, on home midodrine 20 mg TID DISPO: Once INR is therapeutic (Goal 2.5-3.5) Discussed plan of care with patient. SIGNATURE: Ana Daley MD, [facility], [facility] DATE of SERVICE: April 30, 2025 INPATIENT INTERNAL MEDICINE PROGRESS NOTE PATIENT NAME: Elia Weston ; AGE: 6 1980; 45 year old HOSPITAL ROOM: [place] [address] DATE OF SERVICE: 04/30/2025 ATTENDING PHYSICIAN: Ana Daley MD TIME OF SERVICE: AM Rounds SERVICE: Inpatient Medicine service Admit Date: 04/20/2025 Length of Stay: 9 Reason for Admission: Bleeding from wounds. Brief Summary Mr. 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 Patient was hospitalized in September 2024 to October 2024 for pain and bleeding from the wounds. Patient was seen by dermatology back then for his skin ulcers. Biopsy performed and was most c/w reactive ischemic changes without features of Pyoderma Gangrenosum or Calciphylaxis. Now, plan for venoplasty with IR pending improvement in INR. Dermatology consulted, plan for starting topical steroid on wound edge. Interval Events/Subjective: - Patient completed venoplasty with IR on 04/29 without complication - Warfarin bridging ongoing Objective: BP: 128/80 Temp: 36.6 ?C (97.9 ?F) Temp src: Oral Pulse: 63 Resp: 18 O2 Therapy: Room Air SpO2: 94 % Physical Exam- not seen this AM, with IR for venoplasty On 04/27: GENERAL: Alert, no distress, cooperative SKIN: Patient declined examination of wounds again. Wounds non-bleeding. Previously seen: R and L anterior and posterior chest wounds - chronic, bleeding, no purulent discharge. Right flank/back chronic wounds. Images scanned in chart. LUNGS: Lungs clear to auscultation bilaterally, no wheezes or crackles. CARDIAC: Regular rate and rhythm. Normal S1 and S2; no rubs, murmurs, or gallops ABDOMEN: Distended, non-tender. EXTREMITIES: No LE edema NEURO: AxOx3, following commands and answering questions appropriately. Lines, Drains, and Airways Line Duration Peripheral 04/26/25 [facility] Right Forearm 20 Gauge 3 days Dialysis / Apheresis Double Lumen 04/29/25 100[facility] Tunneled Right Internal Jugular 1 day Active Hospital Problems Diagnosis Bleeding from open wound of chest wall, right, initial encounter Skin ulcers (HCC) Hypervolemia Difficult intravenous access Consult IR prior to removal of any catheters Bleeding from wound Open chest wound, right, sequela Unknown etiology Open chest wound, left, sequela Unknown etiology Back wound, unspecified laterality, sequela - Mid Back - Unknown Etiology - POA - Right Upper Back - Unknown Etiology - POA Open wound of abdomen Unknown Etiology Open wound of right thigh Unknown Etiology Wounds, multiple Anemia due to multiple mechanisms Hemorrhage from open wound of left chest wall Ulcers, venous (HCC) Status post Maze operation for atrial fibrillation 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 Acquired hypothyroidism Adjustment disorder with depressed mood Acute on chronic blood loss anemia Supratherapeutic INR S/P MVR (mitral valve replacement) History: MR Assessment: 08/21/2021: OnX + posterior mitral annulus patch with bovine pericardial + Left CryoMAZE + Left atrial appendage ligation Plan: ASA, start Coumadin 08/24, hep gtt History of non-ST elevation myocardial infarction (NSTEMI) ESRD on hemodialysis (HCC) Atrial fibrillation (HCC) on Coumadin and Amiodarone Secondary hyperparathyroidism, renal (HCC) Reportedly elevated PTH High PhxCa ratio in the past Now with worsening metastatic calcifications Will recheck Ca, PO4, Vitamin D, and PTH Continue phosphate binders If PTH elevated, ? Need to calcimemtics to suppress the PTH Will discuss further with the nephrology team MEDICATIONS Current Facility-Administered Medications Medication Dose Route Frequency NaCl 0.9% iv flush bag 20 mL INTRAVENOUS PRN acetaminophen 650 mg tab(s) (TYLENOL) 650 mg ORAL q 6 H PRN aspirin 81 mg chewable tab(s) 81 mg ORAL DAILY midodrine 20 mg tab(s) (PROAMATINE) 20 mg ORAL q 8 H cinacalcet 60 mg tab(s) (SENSIPAR) 60 mg ORAL DAILY iv contrast (radiology procedure) INTRAVENOUS DIRECTED PRN sevelamer carbonate 800 mg tab(s) (RENVELA) 800 mg ORAL TID w MEALS oxyCODONE IR 10 mg tab(s) (ROXICODONE) 10 mg ORAL q 6 H PRN clobetasol topical ointment 0.05% (TEMOVATE) TOPICAL BID polyethylene glycol 3350 17 g packet 17 g ORAL DAILY calcitriol 1.5 mcg cap(s) (ROCALTROL) 1.5 mcg ORAL MO-WE- LORazepam 0.25 mg tab(s) (ATIVAN) 0.25 mg ORAL DAILY PRN heparin iv infusion 25,000 units in NaCl 0.45% 250 mL LOW DOSE/ACS NOMOGRAM 0-3,000 Units/hr INTRAVENOUS CONTINUOUS And heparin RATE CHANGE bolus 1,000-4,000 Units for subtherapeutic PTTAC results 1,000-4,000 Units INTRAVENOUS PRN heparin nomogram - NO INITIAL BOLUS OTHER ONCE (heparin bolus) fentaNYL 50 mcg/mL 25 mcg injection (SUBLIMAZE) 25 mcg INTRAVENOUS PRN Labs: Glucose control: CBC: Recent Labs 04/29/25 1434 04/28/25 0145 04/27/25 0027 04/26/25 2116 04/26/25 1401 04/25/25 0751 04/24/25 0645 WBC 5.75 6.07 5.86 6.68 6.07 6.22 7.98 HB 9.7* 8.7* 9.4* 8.4* 8.8* 8.0* 8.4* HCT 32.5* 29.3* 31.8* 27.1* 29.9* 26.1* 28.1* PLT 298 326 354 325 314 281 301 MCV 92.6 93.0 92.7 90.6 92.3 90.9 92.7 RDWCV 19.2* 19.1* 19.3* 19.0* 19.6* 19.4* 19.3* COAG: Recent Labs 04/29/25 1434 04/28/25 1856 04/28/25 1219 04/28/25 0145 04/27/25 1945 04/27/25 1425 04/27/25 0704 04/27/25 0028 04/26/25 2115 04/26/25 1401 04/25/25 1033 04/25/25 1033 04/24/25 1716 APTT -- 48.0* 55.8* 43.5* 53.5* 40.9* 49.2* 43.0* 41.2* -- < > 75.7* -- INR 1.6* -- -- 1.4* -- -- -- 1.7* 1.7* 1.9* -- 5.3* 5.4* < > = values in this interval not displayed. BMP: Recent Labs 04/29/25 1434 04/28/25 0145 04/27/25 0028 04/26/25 1401 04/25/25 0800 04/24/25 0645 GLUC 110* 75 72* 72* 68* 79 NA 135* 136 136 137 135* 133* K 5.2* 4.8 4.6 4.7 4.8 4.6 CHLOR 95* 95* 94* 95* 95* 94* CO2 22 22 22 26 23 23 ANION 18* 19* 20* 16* 17* 16* BUN 26* 14 24 20 26* 14 CREAT 7.29* 4.74* 6.69* 5.73* 7.04* 4.83* CHEM: Recent Labs 04/29/25 1434 04/28/25 0145 04/27/25 0028 04/26/25 1401 04/25/25 0800 04/24/25 0645 ALB 3.5* 3.2* 3.6* 3.3* 3.1* 3.1* CA 7.8* 8.3* 8.2* 8.2* 7.8* 8.7 HEPATIC: No results for input(s): ALKPHOS, ALT, AST, TBILI, LIPASE in the last 168 hours. URINALYSIS:No results for input(s): PH, SPGR, UGLUC, UBILI, UKET, UHB, UPROT, UROBIL, UWBC, SSA in the last 168 hours. Invalid input(s): NITR CARDIAC: No results for input(s): CKTEST, CKMB, CKMBP, TROPT, PBNP in the last 168 hours. MICROBIOLOGY: Positive Micro-30 Days No results found for the last 720 hours. Imaging: CXR 04/21/25: TDC with tip in RA. Increase of perihilar and basilar opacities with volume loss, suggesting atelectasis, possible underlying edema/inflammation. Blunting of L CP angle, which may represent tiny effusion or pleural thickening. CT A/P 04/22/25: No abdominal or pelvic subcutaneous fluid collection of gas. Redemonstrated diffuse subcutaneous extensive abdominal wall collaterals, similar to prior CTA 10/17/2024. CT chest 04/22/25: extensive chest wall collaterals, few areas of skin ulceration, no areas of drainable fluid collection. Findings consistent with central venous stenoses. Few patchy groundglass opacities, may be related to mild pulm edema Assessment AND Plan: Elia Weston is a 45 year old male with extensive PMH, significant for ESRD on HD (MWF) last session 04/18 (skipped Friday since he came to ED), CAD s/p CABG, severe MS s/p MVR on Warfarin, pAfib s/p maze procedure and RADHA clip and chronic chest/abdominal/back wounds (3 years) likely secondary to ischemia in context of SVC syndrome and multiple thrombosis, who presented to the ED with 1-day of left chronic chest wound bleeding. Admitted for management of bleeding, and on transfer to RNF, patient began to have significant bleeding from R chest wound. Continuous pressure was applied and bleeding stopped. Now s/p FFP and RBC transfusions as appropriate. Initially started on Vanc/Zosyn given elevated ESR/CRP, no infectious concern on further imaging with improved lactate WBC, so abx were stopped. Dermatology and wound care consulted. IR consulted, planning for venoplasty given INR reversal. 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 Hx of hemorrhagic shock from bleeding abdominal wounds - presenting with acute worsening of pain and bleeding from wounds. Denies purulent discharge from wounds . - Leukocytosis + Elevated CRP 22.1 and ESR 133 + Elevated lactate on presentation; concerned for infected wounds/soft tissue infection. Started on IV vanc/zosyn, later d/janie due to low infectious concern (04/21-04/25) - On admission, acute rise in lactate in light of acute significant bleeding and drop in HGB (8.6 from 9.5 in ED) likely secondary to hypovolemia, also missed dialysis - CT venogram on 10/19/24 with b/l brachiocephalic stenosis w b/l subclavian vein occlusion, extensive venous collaterals - 10/22/24: Venoplasty completed by IR, removed L femoral TDC, exchanged R TDC - blood cultures 04/20/25 with NG5D x2 - AMET for hypotension 80/50, s/p 500 cc LR bolus, scheduled midodrine with improved repeat 102/63 - lactate 2.4 from 1.7, improved from 3.2 at admission. Completed 5d course of IV vanc/zosyn (04/21-04/25) - CT chest and CT A/P 04/22/25 with no drainable fluid collections, extensive chest collaterals - nutritional workup: B12 elevated, folate wnl, iron low 26, TIBC low 137, trans sat wnl, low vit D 22.9, zinc 69 wnl, low vit A 0.10 PLAN: - IR consulted: > venoplasty 04/29/2025- no complications - Derm consulted: > ongoing nutritional workup > will start clobetasol 0.05% ointment BID lesion over R scapula, try to simulate tx of PG and assess response - continue vitamin D supplement 5000 u - wound care team consulted, appreciate care - pain control: tylenol 650 mg q6h prn and oxycodone 10 mg po q6h PRN. > IV fent for dressing changes - plastic surgery consulted: > no indication for surgical intervention at this time - Cautious fluid resuscitation in light of acute bleeding and ESRD anuric on HD #Supratherapeutic INR #CAD s/p CABG #Severe MS s/p mechanical MVR on coumadin #Paroxysmal Afib s/p multiple DCCV s/p Maze procedure + RADHA clip (07/2021) - atrial fibrillation and severe mitral stenosis s/p mechanical mitral valve replacement with On-x valve (INR goal 2.5-3.5), Maze procedure and RADHA clip on 08/21/2021. - Goal INR 2.5- 3.5; on warfarin 2.5 mg daily although patient not sure of dose, has been changed recently; last dose of warfarin Thursday 04/19 - INR elevated to 5.1 on admission, improved to 3.9 s/p 2u FFP 04/21 - possible etiology of supratherapeutic INR: warfarin dose (given patient not sure of home dose) vs malnutrition vs liver disease (less likely given AST/ALT wnl) - INR elevated again to 5.3, patient received po vitamin K 5 mg 04/25. Improved to 1.7 PLAN: - given subtherapeutic INR and no intervention by plastic surgery planned, continue bridging to warfarin - continue heparin gtt - Daily INR #ESRD on HD via Right TDC #Chronic Hypotension #Secondary Hyperparathyroidism - iHD at [facility] through R. Tunneled HD catheter MWF - Last dialysis session Friday04/18/2025; missed Fri session because he presented to [facility] ED - anuric at baseline per patient - Serum P=9.7 - completed HD 04/21, now on MWF - PTH elevated 578, Ca 8.3 low PLAN: - nephrology consulted: > Resume MWF HD schedule > continue calcitriol MWF - Continue Sensipar, renvela with meals - continue home Midodrine 20mg daily #Anemia of Chronic Disease/ESRD - Baseline hemoglobin 9-11 - iron studies 12/2024: iron 33, TIBC 156, Iron sat 21, ferritin 1327 - Hgb dropping iso bleeding wounds, as above. - received 1u pRBC 04/21, Hgb from 7.3 -> 7.7 post-transfusion - Hgb 6.9 on 04/22, s/p additional 2u pRBC with Hgb in ~8s PLAN: - Hgb goal >8 - chronic wound mgmt, as above #Code status - Full # Diet - renal # VTE PPx - heparin gtt, bridge to warfarin # Dispo Planning - Pending clinical course, SW consulted for recent unemployment, c/f food insecurity These recommendations and plan are not final until co-signed by the attending physician Ana Daley MD. Dayan Kc MD Internal Medicine PGY3 04/30/2025 12:49 PM RENAL FUNC 1999 PNL SERPL Collected: 12:48 PM Status: F Source: [facility] Order Comment: Specimen Type : BLOOD SPECIMEN Ordering Facility: [facility] Address: [address] [place] [address] TYPE CODE TESTS RESULT OUT OF RANGE REFERENCE UNITS LAB 1751-7(LOINC) Albumin SerPl-mCnc 3.8 Low 3.9-4.9 g/dL LAB 37135-4(LOINC) Calcium SerPl-mCnc 8.6 8.5-10.2 mg/dL LAB 2777-1(LOINC) Phosphate SerPl-mCnc 4.9 High 2.7-4.8 mg/dL LAB 2345-7(LOINC) Glucose SerPl-mCnc 78 74-99 mg/dL Result Comment: The [place] Diabetes Association (ADA) provides guidance for cutoff values for fasting glucose and random glucose. The ADA defines fasting as no caloric intake for at least 8 hours. Fasting plasma glucose results between 100 to 125 mg/dL indicate increased risk for diabetes (prediabetes). Fasting plasma glucose results greater than or equal to 126 mg/dL meet the criteria for diagnosis of diabetes. In the absence of unequivocal hyperglycemia, results should be confirmed by repeat testing. In a patient with classic symptoms of hyperglycemia or hyperglycemic crisis, random plasma glucose results greater than or equal to 200 mg/dL meet the criteria for diagnosis of diabetes. Reference: Standards of Medical Care in Diabetes 2016, [place] Diabetes Association. Diabetes Care. 2016.39(Suppl 1). LAB 3094-0(LOINC) BUN SerPl-mCnc 17 9-24 mg/dL LAB 2160-0(LOINC) Creat SerPl-mCnc 5.21 High 0.73-1.22 mg/dL LAB 2951-2(LOINC) Sodium SerPl-sCnc 136 136-144 mmol/L LAB 2823-3(LOINC) Potassium SerPl-sCnc 4.8 3.7-5.1 mmol/L LAB 2075-0(LOINC) Chloride SerPl-sCnc 92 Low 98-107 mmol/L LAB 2027-9(LOINC) CO2 SerPl-sCnc 25 22-30 mmol/L LAB 51190-2(LOINC) Anion Gap SerPl-sCnc 19 High 8-15 mmol/L LAB 81727-1(LOINC) eGFRcr SerPlBld CKD-EPI 2020 13 Low >=60 mL/min/1. 73m??? Result Comment: Estimated Gl omerular Filtration Rate (eGFR) is calculated using the 2020 CKD-EPI creatinine equation. This equation utilizes serum creatinine, sex, and age as parameters. The creatinine assay has traceable calibration to isotope dilution-mass spectrometry. Refer to KDIGO guidelines for clinical interpretation. In patients with unstable renal function, e.g. those with acute kidney injury, the eGFR may not accurately reflect actual GFR. Performed By: #### 95517-7 # ### [facility] CLIA [id number] [address] [place] [address] [place] CBC PNL BLD AUTO Collected: 5 12:48 PM Status: F Source: [facility] Order Comment: Specimen Type : BLOOD SPECIMEN Ordering Facility: [facility] Address: [address] [place] [address] TYPE CODE TESTS RESULT OUT OF RANGE REFERENCE UNITS LAB 6690-2(LOINC) WBC # Bld Auto 5.45 3.70-11.00 k/uL LAB 789-8(LOINC) RBC # Bld Auto 3.54 Low 4.20-6.00 m/uL LAB 718-7(LOINC) Hgb Bld-mCnc 9.7 Low 13.0-17.0 g/dL LAB 4544-3(LOINC) Hct VFr Bld Auto 32.5 Low 39.0-51.0 % LAB 787-2(LOINC) MCV RBC Auto 91.8 80.0-100.0 fL LAB 785-6(LOINC) MCH RBC Qn Auto 27.4 26.0-34.0 pg LAB 786-4(LOINC) MCHC RBC Auto-mCnc 29.8 Low 30.5-36.0 g/dL LAB 77905-1(INC) RDW RBC-Rto 19.4 High 11.5-15.0 % LAB 777-3(INC) Platelet # Bld Auto 343 150-400 k/uL LAB 56413-8([facility]) PMV Bld Auto 10.7 9.0-12.7 fL LAB 771-6([facility]) nRBC # Bld Auto <0.01 <0.01 k/uL Performed By: #### 58249-5 # ### [facility] CLIA [id number] [address] [place] [address] [place] OF [facility] PT PNL PPP Collected: 5 12:48 PM Status: F Source: [facility] Order Comment: Specimen Type : BLOOD SPECIMEN Ordering Facility: [facility] Address: [address] [place] [address] TYPE CODE TESTS RESULT OUT OF RANGE REFERENCE UNITS LAB 5902-2([facility]) Prothrombin time 23.0 High 9.7-13.0 sec LAB 6301-6([facility]) INR PPP 2.2 High 0.9-1.3 Result Comment: Vitamin K An tagonist (VKA) Therapeutic Range: INR 2 to 3 (Target INR of 2.5) Note: For patients treated with VKA drugs, such as warfarin, the [place] [employer] 2012 Guideline recommends a therapeutic INR range of 2 to 3 (target INR of 2.5). This recommendation includes high-risk patients with antiphospholipid syndrome with previous arterial or venous thromboembolism, current-generation mechanical or bioprosthetic aortic heart valve replacement. Note: Patients with mechanical aortic valve replacement and additional risk factors for thromboembolic events (atrial fibrillation, previous thromboembolism, LV dysfunction, hypercoagulable conditions) or an older generation mechanical AVR (i.e., ball in-Cage) or any mechanical MVR should have a INR therapeutic range of 2.5 to 3.5 (target INR of 3). Ranjit GH, et al. Chest 2012, 141:7S-47S Kevin RA, et al. [facility] 2017, 70: 252-289 Performed By: #### 50046-9, 33737-7 #### [facility] CLIA [id number] [address] [place] [address] [place] APTT PPP Collected: 12:48 PM Status: F Source: [facility] Order Comment: Specimen Type : BLOOD SPECIMEN Ordering Facility: [facility] Address: [address] [place] [address] TYPE CODE TESTS RESULT OUT OF RANGE REFERENCE UNITS LAB 49831-9([facility]) aPTT PPP 36.8 High 23.0-32.4 sec Performed By: #### 72063-4, 10141-1 #### [facility] CLIA [id number] [address] [place] [address] OF [facility] NURSING PROG Observed: 04/30/2025 4:42 AM Status: COMPLETED Source: [facility] HNO ID: [id number] Author: KRYSTAL BRODERICK RN Service: ? Author Type: Registered Nurse Type: Nursing Progress Note Filed: 04/30/2025 04:45 Note Text: Pt refused dressing changes at beginning of shift when he arrived from Dialysis and now at ending of shift. RN educated pt on importance of dressing changes to prevent infections. He states he understands but was off unit all day and just wants to rest. He will ask next shift to due so once he wakes up later. CONSULT PROG Observed: 04/29/2025 2:52 PM Status: COMPLETED Source: [facility] HNO ID: [id number] Author: ELVA PATEL APRN.FLORAL ASSOCIATE Service: ? 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 Right upper chest tunneled dialysis catheter was exchanged over a wire for a new on; ready for use Patient seen on IHD. Orders placed and confirmed in [facility] Admission weight: 115.6 kg (254 lb 13.6 oz) (Pt refusing to get on scale, states this was his last weight from dialysis on friday) Last recorded weight: 113.6 kg (250 lb 7.1 oz) Intake/Output Summary (Last 24 hours) at 04/29/2025 0659 Last data filed at 04/29/2025 0508 Gross per 24 hour Intake 1113 ml Output 0 ml Net 1113 ml MEDICATIONS: Current Facility-Administered Medications Medication Dose Route Frequency NaCl 0.9% iv flush bag 20 mL INTRAVENOUS PRN acetaminophen 650 mg tab(s) (TYLENOL) 650 mg ORAL q 6 H PRN aspirin 81 mg chewable tab(s) 81 mg ORAL DAILY midodrine 20 mg tab(s) (PROAMATINE) 20 mg ORAL q 8 H cinacalcet 60 mg tab(s) (SENSIPAR) 60 mg ORAL DAILY iv contrast (radiology procedure) INTRAVENOUS DIRECTED PRN sevelamer carbonate 800 mg tab(s) (RENVELA) 800 mg ORAL TID w MEALS oxyCODONE IR 10 mg tab(s) (ROXICODONE) 10 mg ORAL q 6 H PRN clobetasol topical ointment 0.05% (TEMOVATE) TOPICAL BID polyethylene glycol 3350 17 g packet 17 g ORAL DAILY calcitriol 1.5 mcg cap(s) (ROCALTROL) 1.5 mcg ORAL LORazepam 0.25 mg tab(s) (ATIVAN) 0.25 mg ORAL DAILY PRN ALLERGIES: Gabapentin and Trazodone VITAL SIGNS: BP 138/89 Pulse 61 Temp 36 ?C (96.8 ?F) (Temporal) Resp 18 Wt 113.6 kg (250 lb 7.1 oz) SpO2 96% BMI 36.26 kg/m? PHYSICAL EXAM: GENERAL: awake, alert, in no acute distress, cooperative, lying in bed SKIN: Skin color, texture, turgor normal. No rashes or lesions. HEENT: normocephalic,moist oral mucosa NECK: no JVD, masses or bruits LUNGS: Good diaphragmatic excursion and normal respiratory effort. CARDIAC: RRR ABDOMEN: soft, round EXTREMITIES: + BLE edema , generalized edema NEURO: AOx3, normal speech, muscle strength grossly intact ACCESS: RIJ TDC accessed with normal findings Lines, Drains, and Airways Line Duration Peripheral 04/26/25 2100 [facility] Right Forearm 20 Gauge 2 days Dialysis / Apheresis Double Lumen 04/29/25 1005 [facility] Tunneled Right Internal Jugular <1 day Labs: Recent Labs 04/28/25 1856 04/28/25 1219 04/28/25 0145 04/27/25 0704 04/27/25 0028 04/27/25 0027 04/26/25 2116 04/26/25 211 WBC -- -- 6.07 -- -- 5.86 6.68 -- HB -- -- 8.7* -- -- 9.4* 8.4* -- HCT -- -- 29.3* -- -- 31.8* 27.1* -- PLT -- -- 326 -- -- 354 325 -- INR -- -- 1.4* -- 1.7* -- -- 1.7* APTT 48.0* 55.8* 43.5* < > 43.0* -- -- 41.2* NA -- -- 136 -- 136 -- -- -- K -- -- 4.8 -- 4.6 -- -- -- CHLOR -- -- 95* -- 94* -- -- -- CO2 -- -- 22 -- 22 -- -- -- ANION -- -- 19* -- 20* -- -- -- BUN -- -- 14 -- 24 -- -- -- CREAT -- -- 4.74* -- 6.69* -- -- -- GLUC -- -- 75 -- 72* -- -- -- CA -- -- 8.3* -- 8.2* -- -- -- P -- -- 4.0 -- 4.8 -- -- -- < > = values in this interval not displayed. Recent Labs 04/28/25 0145 04/27/25 0028 ALB 3.2* 3.6* ASSESSMENT: Mr. 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 Labs on presentation significant for elevated lactic acid, leukocytosis, anemia and supratherapeutic INR. Of note, his previous admission 10/12/2024-11/02/2024 was also for pain and bleeding of the wounds/skin ulcers. Biopsy was consistent with reactive ischemic changes at the time without features of Polyderma Gangrenosum or calciphylaxis. Patient was admitted under general internal medicine team for further management. Nephrology consulted for ESR management. 1.ESRD History -Etiology: HTN Renal Biopsy 2005 renal failure, of undetermined etiology. All of the glomeruli examined are obliterated by total global sclerosis -Date of first HD: 2005 -Current HD unit: [facility] -Configuration Release Manager: Dr Melendez -Schedule: Fri-Fri-Fri -Time: 4.5 hrs -EDW: 114 kg -Date of last outpatient dialysis: 04/18/25 -Access: R IJ TDC 2.Electrolytes/acid-base: -stable, modulating with DRYWALL SANDER 3.Blood Pressure/Volume Status: -BP 113/58 - SBP 90-115 -Hypotension modulated with Midodrine 20 mg Q8 -OPT: Midodrine 10 mg PRN dialysis -EDW 114 kg, Pre-weight today not obtained with UF goal 2.5-3L ast tolerated -hypervolemia on exam with large rounder taut abd and slight taut BLE 4.Anemia Due to multiple mechanisms: -Hgb below ESRD goal -S/P RBC transfusions 04/22 -Transfuse per primary -Iron Stores 04/04: Ferritin 653 Iron 25 TIBC 180 TSAT 14 -Avoid IV iron in the setting of infection -OPT: Venofer 100 mg TIW -ANABELLA: Consider if hgb <8 or LOS >7days -OPT: Mircera 225 mcg Q2 weeks last given unknown 5.Secondary renal hyperparathyroidism: -Phos stable on Renvela -Calcium stable -Sensipar 60 mg every day -OPT: Calcitriol 1.5 mcg TIW 6. Chronic wounds -Per dermatology: continue to favor that wounds are related to reactive ischemic changes given patient's co-morbidities PLAN: -IHD today x 4.5 hours ordered, however, clotted off early, 3K bath, UF goal 2.5-3 L as tolerates -will continue to utilize flushes during dialysis as we are avoiding heparin in the circuit at this time given INR levels and ongoing bleeding issues - last iron was low - will order iron on IHD once clear from infectious -Next dialysis planned for // schedule -Continue Renvela with meals -Continue Sensipar daily -calcitriol 1.5 mcg MWF -continue PRN Midodrine with dialysis to support BP to allow for volume removal Standard ESRD recommendations and precautions: - Strict IANDOs and Daily weight - Consider a RENAL Diet for HD patients - Fluid restriction < 1 L - Start Nephrocap or other renal multivitamin to replace water-soluble vitamins lost during dialysis - Avoid Lovenox, Demerol, Morphine, K-containing IVF, Mg- or Phos- containing enemas - Dose meds GFR 10 ml/min Outpatient dialysis disposition plan: contact [phone] and ask to speak with the director of front office as needed for assistance with post-discharge arrangements. Please DO NOT schedule patient for a nephrology follow up appointment. Kidney care will be provided by the primary data warehousing engineer at their dialysis unit upon hospital discharge. Elva Patel APRN.FLORAL ASSOCIATE Nephrology and Hypertension [facility] April 29, 2025 2:52 PM PAGER # [phone] Disclosures: Parts of the current progress note may have been copied from a previous note. FOR AFTER HOUR CONCERNS BETWEEN 5PM - 7AM CONTACT ON-CALL NEPHROLOGY FELLOW [id number] RENAL FUNC 1999 PNL SERPL Collected: 2:34 PM Status: F Source: [facility] Order Comment: Specimen Type : BLOOD SPECIMEN Ordering Facility: [facility] Address: [address] [place] [address] TYPE CODE TESTS RESULT OUT OF RANGE REFERENCE UNITS LAB 1751-7(LOINC) Albumin SerPl-mCnc 3.5 Low 3.9-4.9 g/dL LAB 41078-7(LOINC) Calcium SerPl-mCnc 7.8 Low 8.5-10.2 mg/dL LAB 2777-1(LOINC) Phosphate SerPl-mCnc 5.3 High 2.7-4.8 mg/dL LAB 2345-7(LOINC) Glucose SerPl-mCnc 110 High 74-99 mg/dL Result Comment: The [place] Diabetes Association (ADA) provides guidance for cutoff values for fasting glucose and random glucose. The ADA defines fasting as no caloric intake for at least 8 hours. Fasting plasma glucose results between 100 to 125 mg/dL indicate increased risk for diabetes (prediabetes). Fasting plasma glucose results greater than or equal to 126 mg/dL meet the criteria for diagnosis of diabetes. In the absence of unequivocal hyperglycemia, results should be confirmed by repeat testing. In a patient with classic symptoms of hyperglycemia or hyperglycemic crisis, random plasma glucose results greater than or equal to 200 mg/dL meet the criteria for diagnosis of diabetes. Reference: Standards of Medical Care in Diabetes 2016, [place] Diabetes Association. Diabetes Care. 2016.39(Suppl 1). LAB 3094-0(LOINC) BUN SerPl-mCnc 26 High 9-24 mg/dL LAB 2160-0(LOINC) Creat SerPl-mCnc 7.29 High 0.73-1.22 mg/dL LAB 2951-2(LOINC) Sodium SerPl-sCnc 135 Low 136-144 mmol/L LAB 2823-3(LOINC) Potassium SerPl-sCnc 5.2 High 3.7-5.1 mmol/L LAB 2075-0(LOINC) Chloride SerPl-sCnc 95 Low 98-107 mmol/L LAB 2028-9(LOINC) CO2 SerPl-sCnc 22 22-30 mmol/L LAB 87721-0(LOINC) Anion Gap SerPl-sCnc 18 High 8-15 mmol/L LAB 43601-7(LOINC) eGFRcr SerPlBld CKD-EPI 2020 9 Low >=60 mL/min/1. 73m??? Result Comment: Estimated Gl omerular Filtration Rate (eGFR) is calculated using the 2020 CKD-EPI creatinine equation. This equation utilizes serum creatinine, sex, and age as parameters. The creatinine assay has traceable calibration to isotope dilution-mass spectrometry. Refer to KDIGO guidelines for clinical interpretation. In patients with unstable renal function, e.g. those with acute kidney injury, the eGFR may not accurately reflect actual GFR. Performed By: #### 56598-7 # ### [facility] CLIA [id number] [address] [place] [address] [place] PT PNL PPP Collected: 04/29/2025 2:34 PM Status: F Source: [facility] Order Comment: Specimen Type : BLOOD SPECIMEN Ordering Facility: [facility] Address: [address] [place] [address] TYPE CODE TESTS RESULT OUT OF RANGE REFERENCE UNITS LAB 5902-2(LOINC) Prothrombin time 17.0 High 9.7-13.0 sec LAB 6301-6(LOINC) INR PPP 1.6 High 0.9-1.3 Result Comment: Vitamin K An tagonist (VKA) Therapeutic Range: INR 2 to 3 (Target INR of 2.5) Note: For patients treated with VKA drugs, such as warfarin, the [place] [employer] 2012 Guideline recommends a therapeutic INR range of 2 to 3 (target INR of 2.5). This recommendation includes high-risk patients with antiphospholipid syndrome with previous arterial or venous thromboembolism, current-generation mechanical or bioprosthetic aortic heart valve replacement. Note: Patients with mechanical aortic valve replacement and additional risk factors for thromboembolic events (atrial fibrillation, previous thromboembolism, LV dysfunction, hypercoagulable conditions) or an older generation mechanical AVR (i.e., ball in-Cage) or any mechanical MVR should have a INR therapeutic range of 2.5 to 3.5 (target INR of 3). Ranjit YOUSSEF, et al. Chest 2012, 141:7S-47S Kevin RUSHING et al. [facility] 2017, 70: 252-289 Performed By: #### 53491-8 # ### [facility] CLIA [id number] [address] [place] [address] [place] CBC PNL BLD AUTO Collected: 2:34 PM Status: F Source: [facility] Order Comment: Specimen Type : BLOOD SPECIMEN Ordering Facility: [facility] Address: [address] [place] [address] TYPE CODE TESTS RESULT OUT OF RANGE REFERENCE UNITS LAB 6690-2(LOINC) WBC # Bld Auto 5.75 3.70-11.00 k/uL LAB 789-8(LOINC) RBC # Bld Auto 3.51 Low 4.20-6.00 m/uL LAB 718-7(LOINC) Hgb Bld-mCnc 9.7 Low 13.0-17.0 g/dL LAB 4544-3(LOINC) Hct VFr Bld Auto 32.5 Low 39.0-51.0 % LAB 787-2(LOINC) MCV RBC Auto 92.6 80.0-100.0 fL LAB 785-6(LOINC) MCH RBC Qn Auto 27.6 26.0-34.0 pg LAB 786-4(LOINC) MCHC RBC Auto-mCnc 29.8 Low 30.5-36.0 g/dL LAB 72484-6(LOINC) RDW RBC-Rto 19.2 High 11.5-15.0 % LAB 777-3(LOINC) Platelet # Bld Auto 298 150-400 k/uL LAB 57960-2(LOINC) PMV Bld Auto 10.8 9.0-12.7 fL LAB 771-6(LOINC) nRBC # Bld Auto <0.01 <0.01 k/uL Performed By: #### 21204-0 # ### [facility] CLIA [id number] [address] [place] [address] [place] ANES POSTPROC EVAL Observed: 04/29/2025 11:01 AM Status: COMPLETED Source: [facility] HNO ID: [id number] Author: BECCA CONDON MD Service: ? Author Type: Anesthesiologist Type: Anesthesia Postprocedure Evaluation Filed: 04/29/2025 11:01 Note Text: POST ANESTHESIA EVALUATION NOTE : 1980 Procedure Summary Date: 04/29/25 Room / Location: ANGIO GB-026 / ANGIO HB6 Anesthesia Start: 0748 Anesthesia Stop: 1026 Procedure: VENOGRAM SUPERIOR VENA CAVA RADIOLOGICAL (Pending) Diagnosis: Difficult intravenous access (Difficult intravenous access [Z78.9]) Surgeons: Velia Paul MD Responsible Provider: Becca Condon MD Anesthesia Type: general ASA Status: 4 Anesthesia Type: general Airway Type: ETT Last Vitals Vitals Value Taken Time BP 152/101 04/29/25 1046 Temp 04/29/25 1101 Pulse 67 04/29/25 1059 Resp 5 04/29/25 1059 SpO2 92 % 04/29/25 1059 Vitals shown include unfiled device data. Post Anesthesia Patient Status Patient Evaluation: bedside. Anticipated Disposition: inpatient floor planned admission. Neurological Status: aware and responsive. Pulmonary Status: breathing comfortably on supplemental oxygen Airway Control: returned to baseline unsupported. Cardiovascular Status: stable. Pain Management: clinically adequate Postoperative Hydration: acceptable. Intraoperative Events: no significant anesthesia events Post Operative Nausea/Vomiting Status: no significant post operative nausea or vomiting Recommendation: further care per PACU/ICU/floor team. Anesthesia Observations No Documentation SIGNATURE: Becca Condon MD PATIENT NAME: Elia Weston DATE: April 29, 2025 TIME: 11:01 AM CSN: [id number] BRIEF OP NOT Observed: 04/29/2025 10:19 AM Status: COMPLETED Source: [facility] HNO ID: [id number] Author: VELIA PAUL MD Service: Radiology Author Type: Physician Type: Brief Op Note Filed: 04/29/2025 10:20 Note Text: OPERATIVE/PROCEDURE REPORT LOG ID: [id number] SURGERY/PROCEDURE DATE: 04/29/2025 INCISION/PROCEDURE START TIME: 9:14 AM INCISION CLOSE/PROCEDURE END TIME: 9:53 AM SURGEON(S)/PROCEDURALIST(S) AND FIBER LOCKING SUPERVISOR(S): Surgeons and Role: * Velia Paul MD - Primary No Additional Staff SURGERY/PROCEDURE(S): 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 Right upper chest tunneled dialysis catheter was exchanged over a wire for a new on; ready for use ANESTHESIA: Choice - Anesthesia Consult SURGERY/PROCEDURE DETAILS: see above PRE-OP/PRE-PROCEDURE DIAGNOSIS: central venous occlusion POST-OP/POST-PROCEDURE DIAGNOSIS: Same as Preop ESTIMATED BLOOD LOSS: 5 mls SPECIMENS: None IMPLANTABLE DEVICES: NONE DRAINS: None COMPLICATIONS: None CLOSURE TECHNIQUE: Primary PARTICIPATION IN SURGERY/PROCEDURE: I/primary surgeon/proceduralist performed the procedure with assistance. SIGNATURE: Velia Paul MD PATIENT NAME: Elia Weston DATE: April 29, 2025 TIME: 10:19 AM IR SUPERIOR CAVAGRAM Observed: 9:53 AM Status: F Source: [facility] * * *Final Report* * * DATE OF EXAM: Apr 29 2025 9:53AM [facility] 0802 - IR SUPERIOR CAVAGRAM / PROCEDURE REASON: . * * * * Physician Interpretation * * * * PROCEDURE: RIGHT CENTRAL VENOGRAM, RIGHT CENTRAL AND SVC VENOPLASTY; RIGHT CHEST WALL TDC EXCHANGE Procedural Personnel Attending physician(s): Velia Paul M.D. Fellow physician(s): None Resident physician(s): None Advanced practice provider(s): None Medical Student(s): None Pre-procedure diagnosis: End-stage renal disease/exhausted supradiaphragmatic venous access Post-procedure diagnosis: Same Indication(s): Bleeding from chest wall varices and swelling; previously benefitted from balloon dilation of right innominate vein Additional clinical history: 45 year old male with hx of ESRD, anuric on iHD, MS s/p mechanical valve replacement on warfarin, Atrial fibrillation, Anemia of chronic disease, Obesity, BMI >35, HTN, Bacterial endocarditis with staph aureus,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 Currently patient has a left femoral TDC, patient is status recent SVC recanalization via a right side and insertion of a [place] catheter. CT venogram demonstrates bilateral subclavian vein occlusion, bilateral brachiocephalic vein stenosis and occlusive supra azygos SVC stenosis. Underwent exchange of femoral TDC to chest wall TDC on 10/22/2024. PROCEDURE SUMMARY: -Right central venogram -Right brachiocephalic vein and SVC venoplasty - Tunneled central venous catheter exchange with fluoroscopic guidance - Additional procedure(s): Right femoral tunneled dialysis catheter removal PROCEDURE DETAILS: Pre-procedure Consent: Risks, benefits, treatment options, potential complications and personnel to be involved were discussed (including the risks of radiation exposure, contrast and anesthesia administration, and any equipment needed for the procedure to ensure best possible outcome) with the patient and all questions were answered and consent was obtained prior to procedure. Premedicated for contrast allergy: n/a Transfusion of blood products: No Medication reconciliation: The patient's medications and allergies were reviewed in the electronic medical record and reconciled to the proposed procedure/treatment. Skye-procedure discussion: The appropriate elements of the pre-procedure discussion, safety check list and sign-out were performed. Time out: A time out was performed immediately prior to procedure start with the nursing and interventional team, correctly identifying the name, date of , procedure, anatomy (including marking of site and side if applicable), patient position, procedure consent form, relevant diagnostic and radiology test results, antibiotic administration if applicable, safety precautions, and procedure-specific equipment needs. Start of procedure: 913 End of procedure: 952 Patient position: Supine Preparation (MIPS): The site was prepared and draped using all elements of maximal sterile barrier technique including sterile gloves, sterile gown, cap, mask, large sterile sheet, sterile ultrasound probe cover, hand hygiene and cutaneous antisepsis with 2% chlorhexidine. Medical reason for site preparation exception (MIPS): Not applicable Antibiotics: Cefazolin Antibiotic infusion start time: 0840 Prophylactic antibiotic administered: Within 1 hour of procedure start time or 2 hours for vancomycin or fluoroquinolones Additional med: None Additional med: None Contrast Contrast agent: OMNIPAQUE 350 Contrast volume (mL): 20 Image Guidance Fluoroscopic guidance. Radiation Dose Plane A, Air Kerma: 182.2 mGy Dose Area Product (DAP): Fluoro Time: 4:06 min:sec Radiation dose exceed 5 Gy: No If radiation dose exceeded 5 Gy, was counseling and instructional brochure provided: N/A Anesthesia/sedation Level of anesthesia/sedation: General anesthesia Anesthesia/sedation administered by: Anesthesiology Total intra-service sedation time (minutes): N/A Local anesthesia: 2 % lidocaine Access Existing. A right supraclavicular vein Technique: Local anesthesia was administered. The indwelling right chest tunneled dialysis catheter was removed over the wire. A vascular sheath was placed. Central venogram was performed. The right brachiocephalic and SVC were dilated using 8 mm x 40 mm CONQUEST angioplasty balloon. Then a new catheter was advanced over the wire into the right atrium. Catheter tip location was fluoroscopically verified and a permanent image was stored. Catheter placed: 27 cm 14.5 F Bard Glidepath hemodialysis catheter Catheter flush: Citrate Closure A sterile dressing was applied. Access site closure technique: NA Catheter securement technique: Non-absorbable suture Venography Indication for venography: Diagnostic angiography - The decision to intervene was based on the diagnostic study. 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 Conclusion The patient was extubated and was transferred to the PACU in stable condition. The procedure was performed by the: attending radiologist, with an mechanic assistant. 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 However, poor flow is expected due to occlusions of right neck and subclavian veins. Exchange of right-sided single-lumen tunneled dialysis catheter , with tip in the expected location of the RIGHT ATRIUM, as detailed above. PLAN: The hemodialysis catheter may be used immediately. Exhausted supradiaphragmatic access and recanalized right innominate and SVC. IR should be consulted for future central venous catheter issues. 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 It is unclear if these fistulas are patent or previously ligated - if patent, in the context of central venous occlusions, the chest/abdominal wall collateral flow could be in high pressure and might explain the recurrent bleeding and could benefit from surgical ligations. Attestation Signer name: Velia Paul MD I attest that I was present for the entire procedure. I reviewed the stored images and agree with the report as written. Residential Driver: PSCB Transcribe Date/Time: Apr 29 2025 7:51P Dictated by : VELIA PAUL MD This examination was interpreted and the report reviewed and electronically signed by: VELIA PAUL MD on May 09 2025 4:48PM EST IR PLASTY ONLY CENTRAL DIALYSIS Observed : 04/29/2025 9:53 AM Status: F Source: [facility] * * *Final Report* * * DATE OF EXAM: Apr 29 2025 9:53AM [facility] 0608 - IR PLASTY ONLY CENTRAL DIALYSIS / PROCEDURE REASON: . * * * * Physician Interpretation * * * * PROCEDURE: RIGHT CENTRAL VENOGRAM, RIGHT CENTRAL AND SVC VENOPLASTY; RIGHT CHEST WALL TDC EXCHANGE Procedural Personnel Attending physician(s): Velia Paul M.D. Fellow physician(s): None Resident physician(s): None Advanced practice provider(s): None Medical Student(s): None Pre-procedure diagnosis: End-stage renal disease/exhausted supradiaphragmatic venous access Post-procedure diagnosis: Same Indication(s): Bleeding from chest wall varices and swelling; previously benefitted from balloon dilation of right innominate vein Additional clinical history: 45 year old male with hx of ESRD, anuric on iHD, MS s/p mechanical valve replacement on warfarin, Atrial fibrillation, Anemia of chronic disease, Obesity, BMI >35, HTN, Bacterial endocarditis with staph aureus,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 Currently patient has a left femoral TDC, patient is status recent SVC recanalization via a right side and insertion of a Lore[place] catheter. CT venogram demonstrates bilateral subclavian vein occlusion, bilateral brachiocephalic vein stenosis and occlusive supra azygos SVC stenosis. Underwent exchange of femoral TDC to chest wall TDC on 10/22/2024. PROCEDURE SUMMARY: -Right central venogram -Right brachiocephalic vein and SVC venoplasty - Tunneled central venous catheter exchange with fluoroscopic guidance - Additional procedure(s): Right femoral tunneled dialysis catheter removal PROCEDURE DETAILS: Pre-procedure Consent: Risks, benefits, treatment options, potential complications and personnel to be involved were discussed (including the risks of radiation exposure, contrast and anesthesia administration, and any equipment needed for the procedure to ensure best possible outcome) with the patient and all questions were answered and consent was obtained prior to procedure. Premedicated for contrast allergy: n/a Transfusion of blood products: No Medication reconciliation: The patient's medications and allergies were reviewed in the electronic medical record and reconciled to the proposed procedure/treatment. Skye-procedure discussion: The appropriate elements of the pre-procedure discussion, safety check list and sign-out were performed. Time out: A time out was performed immediately prior to procedure start with the nursing and interventional team, correctly identifying the name, date of , procedure, anatomy (including marking of site and side if applicable), patient position, procedure consent form, relevant diagnostic and radiology test results, antibiotic administration if applicable, safety precautions, and procedure-specific equipment needs. Start of procedure: 913 End of procedure: 952 Patient position: Supine Preparation (MIPS): The site was prepared and draped using all elements of maximal sterile barrier technique including sterile gloves, sterile gown, cap, mask, large sterile sheet, sterile ultrasound probe cover, hand hygiene and cutaneous antisepsis with 2% chlorhexidine. Medical reason for site preparation exception (MIPS): Not applicable Antibiotics: Cefazolin Antibiotic infusion start time: 0840 Prophylactic antibiotic administered: Within 1 hour of procedure start time or 2 hours for vancomycin or fluoroquinolones Additional med: None Additional med: None Contrast Contrast agent: OMNIPAQUE 350 Contrast volume (mL): 20 Image Guidance Fluoroscopic guidance. Radiation Dose Plane A, Air Kerma: 182.2 mGy Dose Area Product (DAP): Fluoro Time: 4:06 min:sec Radiation dose exceed 5 Gy: No If radiation dose exceeded 5 Gy, was counseling and instructional brochure provided: N/A Anesthesia/sedation Level of anesthesia/sedation: General anesthesia Anesthesia/sedation administered by: Anesthesiology Total intra-service sedation time (minutes): N/A Local anesthesia: 2 % lidocaine Access Existing. A right supraclavicular vein Technique: Local anesthesia was administered. The indwelling right chest tunneled dialysis catheter was removed over the wire. A vascular sheath was placed. Central venogram was performed. The right brachiocephalic and SVC were dilated using 8 mm x 40 mm CONQUEST angioplasty balloon. Then a new catheter was advanced over the wire into the right atrium. Catheter tip location was fluoroscopically verified and a permanent image was stored. Catheter placed: 27 cm 14.5 F Bard Glidepath hemodialysis catheter Catheter flush: Citrate Closure A sterile dressing was applied. Access site closure technique: NA Catheter securement technique: Non-absorbable suture Venography Indication for venography: Diagnostic angiography - The decision to intervene was based on the diagnostic study. 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 Conclusion The patient was extubated and was transferred to the PACU in stable condition. The procedure was performed by the: attending radiologist, with an mechanic assistant. 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 However, poor flow is expected due to occlusions of right neck and subclavian veins. Exchange of right-sided single-lumen tunneled dialysis catheter , with tip in the expected location of the RIGHT ATRIUM, as detailed above. PLAN: The hemodialysis catheter may be used immediately. Exhausted supradiaphragmatic access and recanalized right innominate and SVC. IR should be consulted for future central venous catheter issues. 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 It is unclear if these fistulas are patent or previously ligated - if patent, in the context of central venous occlusions, the chest/abdominal wall collateral flow could be in high pressure and might explain the recurrent bleeding and could benefit from surgical ligations. Attestation Signer name: Velia Paul MD I attest that I was present for the entire procedure. I reviewed the stored images and agree with the report as written. Residential Driver: AZAM Transcribe Date/Time: Apr 29 2025 7:51P Dictated by : VELIA PAUL MD This examination was interpreted and the report reviewed and electronically signed by: VELIA PAUL MD on May 09 2025 4:48PM [facility] IR CENTRAL LINE EXCHANGE Observed: 04/29 9:53 AM Status: F Source: [facility] * * *Final Report* * * DATE OF EXAM: Apr 29 2025 9:53AM [facility] 0744 - IR CENTRAL LINE EXCHANGE / PROCEDURE REASON: . * * * * Physician Interpretation * * * * PROCEDURE: RIGHT CENTRAL VENOGRAM, RIGHT CENTRAL AND SVC VENOPLASTY; RIGHT CHEST WALL TDC EXCHANGE Procedural Personnel Attending physician(s): Velia Paul M.D. Fellow physician(s): None Resident physician(s): None Advanced practice provider(s): None Medical Student(s): None Pre-procedure diagnosis: End-stage renal disease/exhausted supradiaphragmatic venous access Post-procedure diagnosis: Same Indication(s): Bleeding from chest wall varices and swelling; previously benefitted from balloon dilation of right innominate vein Additional clinical history: 45 year old male with hx of ESRD, anuric on iHD, MS s/p mechanical valve replacement on warfarin, Atrial fibrillation, Anemia of chronic disease, Obesity, BMI >35, HTN, Bacterial endocarditis with staph aureus,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 Currently patient has a left femoral TDC, patient is status recent SVC recanalization via a right side and insertion of a Lorena catheter. CT venogram demonstrates bilateral subclavian vein occlusion, bilateral brachiocephalic vein stenosis and occlusive supra azygos SVC stenosis. Underwent exchange of femoral TDC to chest wall TDC on 10/22/2024. PROCEDURE SUMMARY: -Right central venogram -Right brachiocephalic vein and SVC venoplasty - Tunneled central venous catheter exchange with fluoroscopic guidance - Additional procedure(s): Right femoral tunneled dialysis catheter removal PROCEDURE DETAILS: Pre-procedure Consent: Risks, benefits, treatment options, potential complications and personnel to be involved were discussed (including the risks of radiation exposure, contrast and anesthesia administration, and any equipment needed for the procedure to ensure best possible outcome) with the patient and all questions were answered and consent was obtained prior to procedure. Premedicated for contrast allergy: n/a Transfusion of blood products: No Medication reconciliation: The patient's medications and allergies were reviewed in the electronic medical record and reconciled to the proposed procedure/treatment. Skye-procedure discussion: The appropriate elements of the pre-procedure discussion, safety check list and sign-out were performed. Time out: A time out was performed immediately prior to procedure start with the nursing and interventional team, correctly identifying the name, date of , procedure, anatomy (including marking of site and side if applicable), patient position, procedure consent form, relevant diagnostic and radiology test results, antibiotic administration if applicable, safety precautions, and procedure-specific equipment needs. Start of procedure: 913 End of procedure: 952 Patient position: Supine Preparation (MIPS): The site was prepared and draped using all elements of maximal sterile barrier technique including sterile gloves, sterile gown, cap, mask, large sterile sheet, sterile ultrasound probe cover, hand hygiene and cutaneous antisepsis with 2% chlorhexidine. Medical reason for site preparation exception (MIPS): Not applicable Antibiotics: Cefazolin Antibiotic infusion start time: 0840 Prophylactic antibiotic administered: Within 1 hour of procedure start time or 2 hours for vancomycin or fluoroquinolones Additional med: None Additional med: None Contrast Contrast agent: OMNIPAQUE 350 Contrast volume (mL): 20 Image Guidance Fluoroscopic guidance. Radiation Dose Plane A, Air Kerma: 182.2 mGy Dose Area Product (DAP): Fluoro Time: 4:06 min:sec Radiation dose exceed 5 Gy: No If radiation dose exceeded 5 Gy, was counseling and instructional brochure provided: N/A Anesthesia/sedation Level of anesthesia/sedation: General anesthesia Anesthesia/sedation administered by: Anesthesiology Total intra-service sedation time (minutes): N/A Local anesthesia: 2 % lidocaine Access Existing. A right supraclavicular vein Technique: Local anesthesia was administered. The indwelling right chest tunneled dialysis catheter was removed over the wire. A vascular sheath was placed. Central venogram was performed. The right brachiocephalic and SVC were dilated using 8 mm x 40 mm CONQUEST angioplasty balloon. Then a new catheter was advanced over the wire into the right atrium. Catheter tip location was fluoroscopically verified and a permanent image was stored. Catheter placed: 27 cm 14.5 F Bard Glidepath hemodialysis catheter Catheter flush: Citrate Closure A sterile dressing was applied. Access site closure technique: NA Catheter securement technique: Non-absorbable suture Venography Indication for venography: Diagnostic angiography - The decision to intervene was based on the diagnostic study. 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 Conclusion The patient was extubated and was transferred to the PACU in stable condition. The procedure was performed by the: attending radiologist, with an mechanic assistant. 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 However, poor flow is expected due to occlusions of right neck and subclavian veins. Exchange of right-sided single-lumen tunneled dialysis catheter , with tip in the expected location of the RIGHT ATRIUM, as detailed above. PLAN: The hemodialysis catheter may be used immediately. Exhausted supradiaphragmatic access and recanalized right innominate and SVC. IR should be consulted for future central venous catheter issues. 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 It is unclear if these fistulas are patent or previously ligated - if patent, in the context of central venous occlusions, the chest/abdominal wall collateral flow could be in high pressure and might explain the recurrent bleeding and could benefit from surgical ligations. Attestation Signer name: Velia Paul MD I attest that I was present for the entire procedure. I reviewed the stored images and agree with the report as written. Residential Driver: PSCB Transcribe Date/Time: Apr 29 2025 7:51P Dictated by : VELIA PAUL MD This examination was interpreted and the report reviewed and electronically signed by: VELIA PAUL MD on May 09 2025 4:48PM EST ANES PROCEDURE NOTE Observed: 04/29/2025 8:57 AM Status: COMPLETED Source: [facility] HNO ID: [id number] Author: SALVADOR CHAVARRIA APRN.FLIGHT SOFTWARE TEST ENGINEER Service: ? Author Type: Nurse Fitness Coordinator Type: Anesthesia Procedure Notes Filed: 04/29/2025 08:58 Note Text: ANESTHESIOLOGY PROCEDURE NOTE Airway General Information Procedure Start Time/Medication Administration: 04/29/2025 8:27 AM Procedure End Time: 04/29/2025 8:57 AM Patient location during procedure: OR Patient identity confirmed: arm band and patient Staffing FLIGHT SOFTWARE TEST ENGINEER: Salvador Chavarria APRN.FLIGHT SOFTWARE TEST ENGINEER Performed by: FLIGHT SOFTWARE TEST ENGINEER Indications and Patient Condition Indications for airway management: anesthesia Preoxygenated: yes anesthesia circuit Patient position: sniffing Method: asleep Difficult Mask: No Airway Accessory: oral airway Final Airway Details Final airway type: endotracheal airway Final Endotracheal Airway: ETT Cuffed: yes Successful intubation technique: video laryngoscopy Devices used: Hall Endotracheal tube insertion site: oral Blade size: #4 ETT size (mm): 7.5 Measured from: lips Measurement (cm): 23 Placement verified by: capnometry Cormack-Lehane Classification: grade IIa - partial view of glottis Number of attempts at approach: 1 Ventilation between attempts: 2 hand mask Airway not difficult SIGNATURE: Salvador Chavarria APRN.FLIGHT SOFTWARE TEST ENGINEER PATIENT NAME: Elia Weston DATE: April 29, 2025 TIME: 8:57 AM CSN: [id number] ANES PRE-OP Observed: 04/29/2025 7:52 AM Status: COMPLETED Source: [facility] HNO ID: [id number] Author: BECAC CONDON MD Service: ? Author Type: Anesthesiologist Type: Anesthesia Preprocedure Evaluation Filed: 04/29/2025 07:53 Note Text: ANESTHESIOLOGY DAY OF SURGERY NOTE : 1980 Procedure Information Anesthesia Start Date/Time: 04/29/25 0748 Procedure: VENOGRAM SUPERIOR VENA CAVA RADIOLOGICAL (Pending) Location: [facility] GB-026 / [facility] HB6 Surgeons: Velia Paul MD Estimated body mass index is 36.26 kg/m? as calculated from the following: Height as of 10/12/24: 177 cm (5' 9.69). Weight as of this encounter: 113.6 kg (250 lb 7.1 oz). Most recent hematocrit and potassium results: Hematocrit 29.3 04/28/2025 Hematocrit (POCT) 28 06/29/2023 Potassium 4.8 04/28/2025 Potassium (POCT) 6.4 06/29/2023 Relevant Problems ANESTHESIA (+) YEIMY (obstructive sleep apnea) CARDIO (+) A-V fistula (+) Acquired stenosis of superior vena cava (+) Arteriovenous graft stenosis, sequela (+) Atrial fibrillation (HCC) (+) CHB (complete heart block) (HCC) (+) Clotted renal dialysis AV graft (+) Essential hypertension, benign (+) HTN (hypertension) (+) Intra-abdominal varices (+) Jugular vein occlusion, bilateral (HCC) (+) Myocardial infarction (HCC) (+) PAF (paroxysmal atrial fibrillation) (HCC) (+) Paroxysmal atrial flutter (HCC) (+) Pulmonary embolism (HCC) (+) Stenosis of other vascular prosthetic devices, implants and grafts, initial encounter (+) 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 of procedure (+) Unspecified atherosclerosis of [place] arteries of extremities, right leg (+) Venous collateral circulation ENDO (+) Acquired hypothyroidism (+) Hypothyroidism GI (+) Gastroesophageal reflux disease without esophagitis -RENAL (+) Anemia due to chronic kidney disease, on chronic dialysis (HCC) (+) Anemia of renal disease (+) Dialysis patient (+) ESRD (end stage renal disease) (HCC) (+) ESRD (end stage renal disease) on dialysis (HCC) (+) ESRD on hemodialysis (HCC) (+) Renal osteodystrophy NEURO-PSYCH (+) History of endocarditis (+) History of non-ST elevation myocardial infarction (NSTEMI) (+) History of stroke (+) Personal history of DVT (deep vein thrombosis) PULMONARY (+) YEIMY (obstructive sleep apnea) I - PHYSICAL EVALUATION AIRWAY Patient intubated: No. Tracheostomy tube not present Mallampati: II. TM distance: >3 FB. Neck ROM: full ROM without neurological symptoms. Mouth opening: adequate. Short neck: no. Thick neck: no [place] present: yes DENTAL Dental findings: missing tooth/teeth, poor dentition, chipped and broken tooth. II - ANESTHESIA PLAN ASA Score: 4 Anesthetic Plan: general Airway type: ETT NPO Status: adequate Beta Zbigniew Monitoring Plan Monitoring plan: standard ASA. Post Procedure Analgesic Plan Postoperative analgesic plan: multimodal analgesia. Informed Consent Anesthetic risks, benefits, alternatives, personnel and consent discussed: yes. Patient / Responsible Democrat agrees to proceed: yes Patient / Surrogate agrees to blood products: Yes Significant changes in the patient condition since the History and Physical, not otherwise documented in primary service progress note: no. Potential Anesthesia issues that may suggest increased risk of complications or contraindication to planned procedure: none. No vitals data found for the desired time range. Facility-Administered Medications as of 04/29/2025 Medication Dose Route Frequency [COMPLETED] fentaNYL 50 mcg/mL 25 mcg injection (SUBLIMAZE) 25 mcg INTRAVENOUS ONCE [COMPLETED] warfarin 5 mg tab(s) (COUMADIN) 5 mg ORAL/FEEDING TUBE ONCE - WARFARIN LORazepam 0.25 mg tab(s) (ATIVAN) 0.25 mg ORAL DAILY PRN [COMPLETED] HYDROmorphone 0.2 mg injection (DILAUDID) 0.2 mg INTRAVENOUS ONCE clobetasol topical ointment 0.05% (TEMOVATE) TOPICAL BID polyethylene glycol 3350 17 g packet 17 g ORAL DAILY calcitriol 1.5 mcg cap(s) (ROCALTROL) 1.5 mcg ORAL MO-WE-FR [COMPLETED] warfarin 2.5 mg tab(s) (COUMADIN) 2.5 mg ORAL/FEEDING TUBE ONCE - WARFARIN cholecalciferol 5,000 Units tab(s) (VITAMIN D3) 5,000 Units ORAL DAILY [] heparin iv infusion 25,000 units in NaCl 0.45% 250 mL LOW DOSE/ACS NOMOGRAM 0-3,000 Units/hr INTRAVENOUS CONTINUOUS And [] heparin RATE CHANGE bolus 1,000-4,000 Units for subtherapeutic PTTAC results 1,000-4,000 Units INTRAVENOUS PRN [] heparin nomogram - NO INITIAL BOLUS OTHER ONCE (heparin bolus) [COMPLETED] phytonadione (vitamin K1) 5 mg tab(s) (MEPHYTON) 5 mg ORAL ONCE [COMPLETED] vancomycin iv piggyback 1 g in D5W 200 mL (VANCOCIN) 1 g INTRAVENOUS ONCE oxyCODONE IR 10 mg tab(s) (ROXICODONE) 10 mg ORAL q 6 H PRN [COMPLETED] HYDROmorphone 1 mg tab(s) (DILAUDID) 1 mg ORAL ONCE [COMPLETED] HYDROmorphone 1 mg tab(s) (DILAUDID) 1 mg ORAL ONCE [COMPLETED] oxyCODONE IR 5 mg tab(s) (ROXICODONE) 5 mg ORAL ONCE [COMPLETED] acetaminophen 1,000 mg tab(s) (TYLENOL) 1,000 mg ORAL ONCE acetaminophen 650 mg tab(s) (TYLENOL) 650 mg ORAL q 6 H PRN aspirin 81 mg chewable tab(s) 81 mg ORAL DAILY midodrine 20 mg tab(s) (PROAMATINE) 20 mg ORAL q 8 H cinacalcet 60 mg tab(s) (SENSIPAR) 60 mg ORAL DAILY [COMPLETED] HYDROmorphone 0.4 mg injection (DILAUDID) 0.4 mg INTRAVENOUS ONCE iv contrast (radiology procedure) INTRAVENOUS DIRECTED PRN And [] enteric contrast (radiology procedure) ORAL DIRECTED PRN [COMPLETED] lactated ringers 250 mL iv bolus 250 mL INTRAVENOUS ONCE sevelamer carbonate 800 mg tab(s) (RENVELA) 800 mg ORAL TID w MEALS [COMPLETED] lactated ringers 250 mL iv bolus 250 mL INTRAVENOUS ONCE [COMPLETED] lactated ringers 500 mL iv bolus 500 mL INTRAVENOUS ONCE [COMPLETED] fentaNYL 50 mcg/mL 25 mcg injection (SUBLIMAZE) 25 mcg INTRAVENOUS ONCE [COMPLETED] vancomycin iv piggyback 1 g in D5W 200 mL (VANCOCIN) 1 g INTRAVENOUS ONCE [COMPLETED] HYDROmorphone 1 mg tab(s) (DILAUDID) 1 mg ORAL ONCE [COMPLETED] lactated ringers 500 mL iv bolus 500 mL INTRAVENOUS ONCE [COMPLETED] fentaNYL 50 mcg/mL 25 mcg injection (SUBLIMAZE) 25 mcg INTRAVENOUS ONCE [COMPLETED] vancomycin 1.75 g in D5W 500 mL (VANCOCIN) 0.015 g/kg/dose INTRAVENOUS ONCE NaCl 0.9% iv flush bag 20 mL INTRAVENOUS PRN [COMPLETED] fentaNYL 50 mcg/mL 25 mcg injection (SUBLIMAZE) 25 mcg INTRAVENOUS ONCE [COMPLETED] midodrine 20 mg tab(s) (PROAMITINE) 20 mg ORAL ONCE [COMPLETED] fentaNYL 50 mcg/mL 25 mcg injection (SUBLIMAZE) 25 mcg INTRAVENOUS ONCE Outpatient Medications as of 04/29/2025 Medication Sig aspirin 81 mg chewable tablet Take 81 mg by mouth. cinacalcet (SENSIPAR) 60 mg tablet Take 1 tablet by mouth once daily. calcitriol (ROCALTROL) 0.5 mcg capsule Take 3 capsules by mouth every Friday, Friday, and Friday. B Complex-Vitamin C-Folic Acid (JOHNSON-BRENDA) 0.8 mg tab Take 1 tablet by mouth once daily. midodrine (PROAMATINE) 10 mg tablet Take 2 tablets by mouth every 8 hours. melatonin 3 mg tablet Take 3 tablets by mouth daily at bedtime. warfarin (COUMADIN) 2.5 mg tablet Take 1 tablet by mouth once daily. Darbepoetin Osito In Polysorbat (ARANESP) 60 mcg/0.3 mL syrg Inject 0.3 mL subcutaneously every Friday. (Patient not taking: Reported on 01/25/2025) sodium zirconium cyclosilicate (LOKELMA) 10 gram oral packet Take 1 Packet by mouth once daily. Mix powder in 45 mL of water, stir and drink immediately. (Patient not taking: Reported on 01/25/2025) sevelamer carbonate (RENVELA) 800 mg tablet Take 3 tablets by mouth three times a day with meals. (Patient not taking: Reported on 01/25/2025) polyethylene glycol 3350 (MIRALAX) 17 gram packet Take 1 Packet by mouth once daily. Dissolve dose in 4 - 8 ounces of liquid and take as directed. oxyCODONE IR (ROXICODONE) 10 mg tab Take 10 mg by mouth every 8 hours as needed for pain. I have interviewed and examined the patient. I have reviewed the medical record and/or the pre-anesthesia evaluation, pertinent labs, and test results. This contains updated information obtained within 48 hours of Surgery/Procedure. SIGNATURE: Becca Condon MD PATIENT NAME: Elia Weston DATE: April 29, 2025 TIME: 7:52 AM CSN: [id number] PROGRESS Observed: 04/29/2025 5:41 AM Status: COMPLETED Source: [facility] ID: [id number] Author: MARYLIN RAYMOND MD Service: General Internal Medicine Author Type: Resident Type: Progress Notes Filed: 04/29/2025 17:34 Note Text: Attestation signed by Marylin Raymond MD at 04/29/2025 5:34 PM [facility] ([facility] STAFF PHYSICIAN NOTE OF PERSONAL INVOLVEMENT IN CARE I have reviewed the note obtained and documented and I personally participated in the mendoza components. I have discussed the case and management of the patient's care. I reviewed the medical record in detail. The following comments revise or confirm relevant mendoza components of their note. Agree with documented note. 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 -s/p venoplasty of Right innominate vein stenosis and TDC exchange -heparin bridge w/ coumadin 5 mg today -Pending vit C and B6 -Dialysis MWF -PTH elevated and neprho rec start of calcitriol -Seen by derm who recommend topical steroid for wounds DISPO: bridge to therapeutic INR SIGNATURE: Marylin Raymond MD, MPH Staff, Department of Hospital Medicine 04/29/2025 INPATIENT INTERNAL MEDICINE PROGRESS NOTE PATIENT NAME: Elia Weston ; AGE: 6 1980; 45 year old HOSPITAL ROOM: [place] [address] DATE OF SERVICE: 04/29/2025 ATTENDING PHYSICIAN: Marylin Raymond MD TIME OF SERVICE: AM Rounds SERVICE: Inpatient Medicine service Admit Date: 04/20/2025 Length of Stay: 8 Reason for Admission: Bleeding from wounds. Brief Summary Mr. 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 Patient was hospitalized in September 2024 to October 2024 for pain and bleeding from the wounds. Patient was seen by dermatology back then for his skin ulcers. Biopsy performed and was most c/w reactive ischemic changes without features of Pyoderma Gangrenosum or Calciphylaxis. Now, plan for venoplasty with IR pending improvement in INR. Dermatology consulted, plan for starting topical steroid on wound edge. Interval Events/Subjective: - Yesterday, continued bridging to warfarin, given 5mg. Overnight, patient received Dilaudid 0.2mg for wound pain with dressing. - This morning, patient with IR for procedure. Will follow-up in afternoon. - Afebrile, low SBPs 80s to 100s, MAPs 65-92 with one low MAP to 61 overnight, HR 60s-80, R 16-19, SpO2 98-100% on RA. - required oxycodone 10 mg q6h x3, fentanyl x1 with dressing change, dilaudid 0.2mg x1 Objective: BP: 90/51 Temp: 36.9 ?C (98.4 ?F) Temp src: Oral Pulse: 72 Resp: 16 O2 Therapy: Continuous Positive Airway Pressure SpO2: 100 % Physical Exam- not seen this AM, with IR for venoplasty On 04/27: GENERAL: Alert, no distress, cooperative SKIN: Patient declined examination of wounds again. Wounds non-bleeding. Previously seen: R and L anterior and posterior chest wounds - chronic, bleeding, no purulent discharge. Right flank/back chronic wounds. Images scanned in chart. LUNGS: Lungs clear to auscultation bilaterally, no wheezes or crackles. CARDIAC: Regular rate and rhythm. Normal S1 and S2; no rubs, murmurs, or gallops ABDOMEN: Distended, non-tender. EXTREMITIES: No LE edema NEURO: AxOx3, following commands and answering questions appropriately. Lines, Drains, and Airways Line Duration Dialysis / Apheresis Double Lumen External Facility Tunneled Right -- days Peripheral 04/26/25 [facility] Right Forearm 20 Gauge 2 days Active Hospital Problems Diagnosis Bleeding from open wound of chest wall, right, initial encounter Skin ulcers (HCC) Hypervolemia Difficult intravenous access Consult IR prior to removal of any catheters Bleeding from wound Open chest wound, right, sequela Unknown etiology Open chest wound, left, sequela Unknown etiology Back wound, unspecified laterality, sequela - Mid Back - Unknown Etiology - POA - Right Upper Back - Unknown Etiology - POA Open wound of abdomen Unknown Etiology Open wound of right thigh Unknown Etiology Wounds, multiple Anemia due to multiple mechanisms Hemorrhage from open wound of left chest wall Ulcers, venous (HCC) Status post Maze operation for atrial fibrillation 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 Acquired hypothyroidism Adjustment disorder with depressed mood Acute on chronic blood loss anemia Supratherapeutic INR S/P MVR (mitral valve replacement) History: MR Assessment: 08/21/2021: OnX + posterior mitral annulus patch with bovine pericardial + Left CryoMAZE + Left atrial appendage ligation Plan: ASA, start Coumadin 08/24, hep gtt History of non-ST elevation myocardial infarction (NSTEMI) ESRD on hemodialysis (HCC) Atrial fibrillation (HCC) on Coumadin and Amiodarone Secondary hyperparathyroidism, renal (HCC) Reportedly elevated PTH High PhxCa ratio in the past Now with worsening metastatic calcifications Will recheck Ca, PO4, Vitamin D, and PTH Continue phosphate binders If PTH elevated, ? Need to calcimemtics to suppress the PTH Will discuss further with the nephrology team MEDICATIONS Current Facility-Administered Medications Medication Dose Route Frequency NaCl 0.9% iv flush bag 20 mL INTRAVENOUS PRN acetaminophen 650 mg tab(s) (TYLENOL) 650 mg ORAL q 6 H PRN aspirin 81 mg chewable tab(s) 81 mg ORAL DAILY midodrine 20 mg tab(s) (PROAMATINE) 20 mg ORAL q 8 H cinacalcet 60 mg tab(s) (SENSIPAR) 60 mg ORAL DAILY iv contrast (radiology procedure) INTRAVENOUS DIRECTED PRN sevelamer carbonate 800 mg tab(s) (RENVELA) 800 mg ORAL TID w MEALS oxyCODONE IR 10 mg tab(s) (ROXICODONE) 10 mg ORAL q 6 H PRN cholecalciferol 5,000 Units tab(s) (VITAMIN D3) 5,000 Units ORAL DAILY clobetasol topical ointment 0.05% (TEMOVATE) TOPICAL BID polyethylene glycol 3350 17 g packet 17 g ORAL DAILY calcitriol 1.5 mcg cap(s) (ROCALTROL) 1.5 mcg ORAL - LORazepam 0.25 mg tab(s) (ATIVAN) 0.25 mg ORAL DAILY PRN Labs: Glucose control: CBC: Recent Labs 04/28/25 0145 04/27/25 0027 04/26/25 2116 04/26/25 1401 04/25/25 0751 04/24/25 0645 04/23/25 1237 04/22/25 1044 WBC 6.07 5.86 6.68 6.07 6.22 7.98 9.99 10.90 HB 8.7* 9.4* 8.4* 8.8* 8.0* 8.4* 8.2* 6.9* HCT 29.3* 31.8* 27.1* 29.9* 26.1* 28.1* 26.4* 23.6* PLT 326 354 325 314 281 301 323 297 MCV 93.0 92.7 90.6 92.3 90.9 92.7 91.0 91.5 RDWCV 19.1* 19.3* 19.0* 19.6* 19.4* 19.3* 19.6* 20.9* COAG: Recent Labs 04/28/25 1856 04/28/25 1219 04/28/25 0145 04/27/25 1945 04/27/25 1425 04/27/25 0704 04/27/25 0028 04/26/25 2115 04/26/25 1401 04/25/25 1033 04/25/25 1033 04/24/25 1716 APTT 48.0* 55.8* 43.5* 53.5* 40.9* 49.2* 43.0* 41.2* -- < > 75.7* -- INR -- -- 1.4* -- -- -- 1.7* 1.7* 1.9* -- 5.3* 5.4* < > = values in this interval not displayed. BMP: Recent Labs 04/28/25 0145 04/27/25 0028 04/26/25 1401 04/25/25 0800 04/24/25 0645 04/23/25 1237 GLUC 75 72* 72* 68* 79 94 NA 136 136 137 135* 133* 136 K 4.8 4.6 4.7 4.8 4.6 4.3 CHLOR 95* 94* 95* 95* 94* 94* CO2 22 22 26 23 23 25 ANION 19* 20* 16* 17* 16* 17* BUN 14 24 20 26* 14 29* CREAT 4.74* 6.69* 5.73* 7.04* 4.83* 7.96* CHEM: Recent Labs 04/28/25 0145 04/27/25 0028 04/26/25 1401 04/25/25 0800 04/24/25 0645 04/23/25 1237 ALB 3.2* 3.6* 3.3* 3.1* 3.1* 3.1* CA 8.3* 8.2* 8.2* 7.8* 8.7 8.3* HEPATIC: No results for input(s): ALKPHOS, ALT, AST, TBILI, LIPASE in the last 168 hours. URINALYSIS:No results for input(s): PH, SPGR, UGLUC, UBILI, UKET, UHB, UPROT, UROBIL, UWBC, SSA in the last 168 hours. Invalid input(s): NITR CARDIAC: No results for input(s): CKTEST, CKMB, CKMBP, TROPT, PBNP in the last 168 hours. MICROBIOLOGY: Positive Micro-30 Days No results found for the last 720 hours. Imaging: CXR 04/21/25: TDC with tip in RA. Increase of perihilar and basilar opacities with volume loss, suggesting atelectasis, possible underlying edema/inflammation. Blunting of L CP angle, which may represent tiny effusion or pleural thickening. CT A/P 04/22/25: No abdominal or pelvic subcutaneous fluid collection of gas. Redemonstrated diffuse subcutaneous extensive abdominal wall collaterals, similar to prior CTA 10/17/2024. CT chest 04/22/25: extensive chest wall collaterals, few areas of skin ulceration, no areas of drainable fluid collection. Findings consistent with central venous stenoses. Few patchy groundglass opacities, may be related to mild pulm edema Assessment AND Plan: Elia Weston is a 45 year old male with extensive PMH, significant for ESRD on HD (MWF) last session 04/18 (skipped Friday since he came to ED), CAD s/p CABG, severe MS s/p MVR on Warfarin, pAfib s/p maze procedure and RADHA clip and chronic chest/abdominal/back wounds (3 years) likely secondary to ischemia in context of SVC syndrome and multiple thrombosis, who presented to the ED with 1-day of left chronic chest wound bleeding. Admitted for management of bleeding, and on transfer to [facility], patient began to have significant bleeding from R chest wound. Continuous pressure was applied and bleeding stopped. Now s/p FFP and RBC transfusions as appropriate. Initially started on Vanc/Zosyn given elevated ESR/CRP, no infectious concern on further imaging with improved lactate WBC, so abx were stopped. Dermatology and wound care consulted. IR consulted, planning for venoplasty given INR reversal. 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 Hx of hemorrhagic shock from bleeding abdominal wounds - presenting with acute worsening of pain and bleeding from wounds. Denies purulent discharge from wounds . - Leukocytosis + Elevated CRP 22.1 and ESR 133 + Elevated lactate on presentation; concerned for infected wounds/soft tissue infection. Started on IV vanc/zosyn, later d/janie due to low infectious concern (04/21-04/25) - On admission, acute rise in lactate in light of acute significant bleeding and drop in HGB (8.6 from 9.5 in ED) likely secondary to hypovolemia, also missed dialysis - CT venogram on 10/19/24 with b/l brachiocephalic stenosis w b/l subclavian vein occlusion, extensive venous collaterals - 10/22/24: Venoplasty completed by IR, removed L femoral TDC, exchanged R TDC - blood cultures 04/20/25 with NG5D x2 - AMET for hypotension 80/50, s/p 500 cc LR bolus, scheduled midodrine with improved repeat 102/63 - lactate 2.4 from 1.7, improved from 3.2 at admission. Completed 5d course of IV vanc/zosyn (04/21-04/25) - CT chest and CT A/P 04/22/25 with no drainable fluid collections, extensive chest collaterals - nutritional workup: B12 elevated, folate wnl, iron low 26, TIBC low 137, trans sat wnl, low vit D 22.9, zinc 69 wnl, low vit A 0.10 PLAN: - IR consulted: > venoplasty 04/29/2025 - Derm consulted: > pending Nutritional workup (B6, C, essential fatty acids) > will start clobetasol 0.05% ointment BID lesion over R scapula, try to simulate tx of PG and assess response - continue vitamin D supplement 5000 u - wound care team consulted, appreciate care - pain control: tylenol 650 mg q6h prn and oxycodone 10 mg po q6h PRN. > given fent once with dressing change. Given dilaudid once for wound pain. Added ativan prn for anxiety related to dressing changes - plastic surgery consulted: > no indication for surgical intervention at this time - Cautious fluid resuscitation in light of acute bleeding and ESRD anuric on HD #Supratherapeutic INR #CAD s/p CABG #Severe MS s/p mechanical MVR on coumadin #Paroxysmal Afib s/p multiple DCCV s/p Maze procedure + RADHA clip (07/2021) - atrial fibrillation and severe mitral stenosis s/p mechanical mitral valve replacement with On-x valve (INR goal 2.5-3.5), Maze procedure and RADHA clip on 08/21/2021. - Goal INR 2.5- 3.5; on warfarin 2.5 mg daily although patient not sure of dose, has been changed recently; last dose of warfarin Thursday 04/19 - INR elevated to 5.1 on admission, improved to 3.9 s/p 2u FFP 04/21 - possible etiology of supratherapeutic INR: warfarin dose (given patient not sure of home dose) vs malnutrition vs liver disease (less likely given AST/ALT wnl) - INR elevated again to 5.3, patient received po vitamin K 5 mg 04/25. Improved to 1.7 PLAN: - given subtherapeutic INR and no intervention by plastic surgery planned, continue bridging to warfarin - continue heparin gtt - Daily INR #ESRD on HD via Right TDC #Chronic Hypotension #Secondary Hyperparathyroidism - iHD at [facility] [place] through R. Tunneled HD catheter MWF - Last dialysis session Friday04/18/2025; missed Fri session because he presented to [facility] ED - anuric at baseline per patient - Serum P=9.7 - completed HD 04/21, now on MWF - PTH elevated 578, Ca 8.3 low PLAN: - nephrology consulted: > Resume MWF HD schedule > continue calcitriol MWF - Continue Sensipar, renvela with meals - continue home Midodrine 20mg daily #Anemia of Chronic Disease/ESRD - Baseline hemoglobin 9-11 - iron studies 12/2024: iron 33, TIBC 156, Iron sat 21, ferritin 1327 - Hgb dropping iso bleeding wounds, as above. - received 1u pRBC 04/21, Hgb from 7.3 -> 7.7 post-transfusion - Hgb 6.9 on 04/22, s/p additional 2u pRBC with Hgb in ~8s PLAN: - Hgb goal >8 - chronic wound mgmt, as above #Code status - Full # Diet - renal # VTE PPx - heparin gtt, bridge to warfarin # Dispo Planning - Pending clinical course, SW consulted for recent unemployment, c/f food insecurity These recommendations and plan are not final until co-signed by the attending physician Marylin Raymond MD. Parker Moe MD PGY-1 04/29/2025 5:41 AM PLAN OF CARE Observed: 04/28/2025 9:54 PM Status: COMPLETED [id number] Author: GUZMAN HERNANDEZ MD Service: Interventional Radiology Author Type: Fellow Type: Plan of Care Filed: 04/28/2025 22:01 Note Text: Patient planned for IR SVC venogram with venoplasty tomorrow AM with anesthesia. Upon attempting to consent the patient, he was explained all the risks/benefits/alternatives. I explained we were planning on expanding the large upper chest vein through which the HD catheter runs, in order to direct more blood flow away from his chest veins into his heart and reduce his incidence of bleeding from his chest veins. I appropriately disclosed I was a fellow physician, he appeared distraught and he said he wanted to speak with the more senior doctor. Dr Santiago MANRIQUEZ litigation examiner came with me to the bedside and explained similar risks/benefits/alternatives of the procedure, and there was a long discussion of the medical decision making. Patient still appeared distraught and stated he was overwhelmed. He stated he would like to have the procedure done tomorrow, but does not want to sign the consent tonight, that he would like to sign the consent tomorrow. PTT, ANTICOAGULANT THERAPY Collected: 0 04/28/2025 6:56 PM Status: F Source: [facility] Order Comment: Specimen Type : BLOOD SPECIMEN Ordering Facility: [facility] Address: [address] [place] [address] TYPE CODE TESTS RESULT OUT OF RANGE REFERENCE UNITS LAB 70924-7(LOINC) aPTT PPP 48.0 High 23.0-32.4 sec Performed By: #### PTTAC ### # [facility] CLIA [id number] [address] [place] [address] [place] [address] [place] CONSULT PROG Observed: 04/28/2025 3:43 PM Status: COMPLETED Source: [facility] HNO ID: [id number] Author: BHAKTI KIRBY MD Service: Dermatology Author Type: Resident Type: Consult Progress Note Filed: 04/29/2025 12:47 Note Text: Attestation signed by Bhakti Kirby MD at 04/29/2025 12:47 PM I was physically present during the critical/mendoza portions of this encounter and during all procedures, and agree with the above evaluation, assessment, and treatment plan. I reviewed the patient's chart and discussed care with the patient and the other physicians involved. Bhakti Kirby MD DERMATOLOGY HOSPITAL CONSULT SERVICE PROGRESS NOTE Interval Events - has decided he will try the cream PHYSICAL EXAM BP 80/61 Pulse 65 Temp 36.8 ?C (98.2 ?F) (Oral) Resp 18 Wt 111.5 kg (245 lb 13 oz) SpO2 98% BMI 35.59 kg/m? GEN: Age appropriate Patient declines physical examination given pain with dressing changes/location in HD. Reviewed photos in chart from 04/22/2025: - L chest with deep ulcer with granulation tissue at the periphery and hemorrhagic crust at the center. Worsening compared to photo from 12/04/24. - R chest with ulceration deeper than photo 09/06/24 - Back with scattered ulcerations with granulation tissue at base and hyperpigmented periphery. Possible rolled border. Hypopigmented cribriform scars with hyperpigmented periphery. Enlarged compared to photos from November 2024 and August 2024. - Abdomen with scattered ulcerations with granulation tissue at base and hyperpigmented periphery. Hypopigmented scars with hyperpigmented periphery. Improving compared to photos from August 2024. LABORATORY TESTS: DATA: IMAGING: No pertinent imaging LABS: - CBC without leukocytosis as of 04/27 - total Ca low - CRP elevated 22.1 - ESR elevated 133 - Blood cultures (04/20) - NGTD Vit B 12 >2,000 (high) Folate, zinc WNL Vit D 22.9 (low) Iron 26, TIBC 137, Tsat WNL B6, C, A pending BIOPSY: Punch biopsy 10/15/24 FINAL DIAGNOSIS A. Skin, chest, punch biopsy: - Dermal fibrosis and reactive vascular proliferation, see comment. APF/dkm 10/18/2024 at 1513 EST Diagnosis Comment Histologic sections display a basket-weave to compact orthokeratotic stratum corneum with focal parakeratosis overlying a markedly acanthotic and mildly spongiotic epidermis. Within the dermis, there is a superficial and deep interstitial vascular and histiocytic proliferation with collagen fibrosis and elastic fiber disarray. There is a scant perivascular mixed infiltrate including lymphocytes, histiocytes, and neutrophils. Eosinophils are not readily identified. To further evaluate this specimen, immunohistochemical and special stains were performed and compared to appropriate controls. Gram, GMS, and AFB-Christiana stains are negative for evidence of infectious organisms. A Von Kossa stain is negative for evidence of intraluminal or dermal calcium deposition. In order to further evaluate the vascular proliferation, immunohistochemical staining is performed at the [facility] on block A1 with appropriate controls. Stains for CD31 and ERG highlight the vascular endothelial cells, showing that they are mostly small and thin-walled without significant nuclear enlargement or multilayering. The clinical history and photographs are reviewed. Overall, these features are those of dermal fibrosis and a reactive vascular proliferation. These findings could be consistent with reactive ischemic changes in the correct clinical context. Features of pyoderma gangrenosum calciphylaxis are not identified, although the subcutaneous adipose tissue is minimally sampled. Clinical correlation remains essential. 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 On admission, patient had leukocytosis with elevated CRP/ESR and elevated lactate. Patient is on IV antibiotics. Currently patient is afebrile and leukocytosis has resolved. No clinical signs of infection at this time. Punch biopsy 06/26/23 revealed ulcer with dermal fibrosis, vascular ectasia, and reactive vascular proliferation - overall nonspecific findings but could be related to chronic ischemia given patient's history and clinical morphology. Punch biopsy 10/15/24 showing dermal fibrosis and a reactive vascular proliferation which is most consistent with reactive ischemic changes in the correct clinical context. Features of pyoderma gangrenosum, calciphylaxis not identified. Tissue cultures no growth on bacterial culture and NGTD on fungal/AFB. Patient denies the presence of a preceding papule or pustule that progresses to ulceration quickly. He endorses the lesions start as hyperpigmentation and skin tears. Denies painful indurated plaques in areas of ulceration prior to onset. Clinically, initial presentation is not consistent with calciphylaxis. A few features of pyoderma gangrenosum are present, however prior biopsy is supportive of ischemic vasculopathy as likely trigger for non-healing ulcers. Pt remains afebrile without leukocytosis, low concern for infection. He reports improvement in prior wounds. Continue to favor that wounds are related to reactive ischemic changes given patient's co-morbidities (ESRD, HTN, vasculopathy). Given persistent, non-healing wounds, recommend nutritional workup given patient's diet is limited, following labs as they return. Discussed option to repeat biopsy with patient on 04/25 and he declined given that he has had numerous biopsies in the past. Pt feels that when he has received systemic steroids in the past it improved the pain and appearance of his wounds. Given that infectious work up of his wounds has been negative to date, would consider a trial of a topical steroid to a smaller wound to simulate treatment of PG to assess its response. Pt now amenable to this plan. Requested new photos of patient's wounds to be taken during dressings changes and I will review the photos with the patient and decide which lesion to treat. PLAN: (Not final until signed by staff physician) - await remainder of nutritional workup for poorly healing wounds, supplementation as appropriate - Agree with wound care recommendations per C team - please order clobetasol 0.05% ointment to be applied to wound edge twice daily - We will treat the lesion located over the right scapula. Discussed this with patient and RN. Please change order to allow nursing to apply this medication - defer pain control to primary team but would consider pre-medication for wound dressing changes as he is reporting significant pain with these Patient discussed with attending printed circuit board assembler, Dr. Gregory Beltran MD Dermatology PGY-3 04/28/2025 3:43 PM Please use consult pager [phone], Mon-Fri 8am-5pm. Please call adzing and boring machine operator for on-call resident/pager during all other hours. ALLIED HEALTH Observed: 04/28/2025 12:25 PM Status: COMPLETED Source: [facility] HNO ID: [id number] Author: NOAH JUAREZ Chaplain Service: Spiritual Care Author Type: Radio News Anchor Type: Allied Health Filed: 04/28/2025 14:48 Note Text: SPIRITUAL CARE ASSESSMENT SERVICE DATE: 04/28/2025 SERVICE TIME: 12:25 Visit with: Patient Length of visit (minutes): 15 Pentecostalism / Spirituality: Alevism Reason: Initial visit ASSESSMENT Emotional Disposition: Determined, Grateful, and Joyful Relational Concerns: Struggling with Self-care Spiritual Concerns: Struggling with hope and Struggling with meaning of illness or diagnosis INTERVENTIONS Empowerment: Encouraged adherence to treatment plan, Encouraged focus on present, Encouraged self-care, Normalized experience of patient/family, and Provided anticipatory guidance Exploration: Explored emotional needs and resources, Explored hope, and Explored spiritual needs and resources Relationship Building: Provided hospitality Ritual: Provided prayer OUTCOMES Patient experienced catharsis, Patient expressed gratitude, Patient expressed hope irrespective of future outcomes, Patient expressed peace , and Patient progressed toward focus on present PLAN Will follow as circumstances allow COMMENTS: SIGNATURE: Chaplain Frank PATIENT NAME: Elia Weston DATE: April 28, 2025 TIME: 2:41 PM PAGER/CONTACT #: [phone] PTT, ANTICOAGULANT THERAPY Collected: 0 04/28/2025 12:19 PM Status: F Source: [facility] Order Comment: Specimen Type : BLOOD SPECIMEN Ordering Facility: [facility] Address: [address] [place] [address] TYPE CODE TESTS RESULT OUT OF RANGE REFERENCE UNITS LAB 99636-4(LOINC) aPTT PPP 55.8 High 23.0-32.4 sec Performed By: #### PTTAC ### # [facility] CLIA [id number] [address] [place] [address] [place] TYPE + SCREEN Collected: 04/28/2025 12:19 PM Status: F Source: [facility] Order Comment: Specimen Type : BLOOD SPECIMEN Ordering Facility: [facility] Address: [address] [place] [address] TYPE CODE TESTS RESULT OUT OF RANGE REFERENCE UNITS LAB [id number] ABO B LAB [id number] RH Positive LAB [id number] ANTIBODY SCREEN Negative LAB [id number] TYPE AND SCREEN EXPIRATION 05/01/2025 23:59 Performed By: #### TSCR #### [facility] CLIA [id number] [address] [place] [address] [place] PROGRESS Observed: 04/28/2025 6:11 AM Status: COMPLETED Source: [facility] HNO ID: [id number] Author: MARYLIN RAYMOND MD Service: General Internal Medicine Author Type: Resident Type: Progress Notes Filed: 04/28/2025 20:19 Note Text: Attestation signed by Marylin Raymond MD at 04/28/2025 8:19 PM [facility] STAFF PHYSICIAN NOTE OF PERSONAL INVOLVEMENT IN CARE I have reviewed the note obtained and documented and I personally participated in the mendoza components. I have discussed the case and management of the patient's care. I reviewed the medical record in detail. The following comments revise or confirm relevant mendoza components of their note. Agree with documented note. 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 IR ok w/ INR <3.5 -Pending vit C and B6 -Dialysis MWF -PTH elevated and neprho rec start of calcitriol -Seen by derm who will attempt topical steroid for wounds DISPO: pending venoplasty and therapeutic INR SIGNATURE: Marylin Raymond MD, MPH Staff, Department of Hospital Medicine 04/28/2025 INPATIENT INTERNAL MEDICINE PROGRESS NOTE PATIENT NAME: Elia Weston ; AGE: 6 1980; 45 year old HOSPITAL ROOM: [place] [address] DATE OF SERVICE: 04/28/2025 ATTENDING PHYSICIAN: Marylin Raymond MD TIME OF SERVICE: AM Rounds SERVICE: Inpatient Medicine service Admit Date: 04/20/2025 Length of Stay: 7 Reason for Admission: Bleeding from wounds. Brief Summary Mr. 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 Patient was hospitalized in September 2024 to October 2024 for pain and bleeding from the wounds. Patient was seen by dermatology back then for his skin ulcers. Biopsy performed and was most c/w reactive ischemic changes without features of Pyoderma Gangrenosum or Calciphylaxis. Now, plan for venoplasty with IR pending improvement in INR. Dermatology consulted, plan for starting topical steroid on wound edge. Interval Events/Subjective: - Yesterday, started bridging to warfarin, given 2.5mg. Overnight, patient had low BP to 84/52, was given his scheduled Midodrine early. - This morning, patient endorses wound pain, improves when he receives his pain medications. Denies shortness of breath, fever/chills, chest pain, or abdominal pain. - Afebrile, low SBPs 80s to 110s, low MAPs 48-60 when SBP drops - otherwise 70-89, HR 70-78, R 18, SpO2 98-100% on RA. - required oxycodone 10 mg q6h x3 Objective: BP: 84/52 Temp: 36.9 ?C (98.4 ?F) Temp src: Oral Pulse: 77 Resp: 16 O2 Therapy: Room Air SpO2: 98 % Physical Exam GENERAL: Alert, no distress, cooperative SKIN: Patient declined examination of wounds again. Wounds non-bleeding. Previously seen: R and L anterior and posterior chest wounds - chronic, bleeding, no purulent discharge. Right flank/back chronic wounds. Images scanned in chart. LUNGS: Lungs clear to auscultation bilaterally, no wheezes or crackles. CARDIAC: Regular rate and rhythm. Normal S1 and S2; no rubs, murmurs, or gallops ABDOMEN: Distended, non-tender. EXTREMITIES: No LE edema NEURO: AxOx3, following commands and answering questions appropriately. Lines, Drains, and Airways Line Duration Dialysis / Apheresis Double Lumen External Facility Tunneled Right -- days Peripheral 04/26/25 [facility] Right Forearm 20 Gauge 1 day Active Hospital Problems Diagnosis Bleeding from open wound of chest wall, right, initial encounter Skin ulcers (HCC) Hypervolemia Difficult intravenous access Consult IR prior to removal of any catheters Bleeding from wound Open chest wound, right, sequela Unknown etiology Open chest wound, left, sequela Unknown etiology Back wound, unspecified laterality, sequela - Mid Back - Unknown Etiology - POA - Right Upper Back - Unknown Etiology - POA Open wound of abdomen Unknown Etiology Open wound of right thigh Unknown Etiology Wounds, multiple Anemia due to multiple mechanisms Hemorrhage from open wound of left chest wall Ulcers, venous (HCC) Status post Maze operation for atrial fibrillation 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 Acquired hypothyroidism Adjustment disorder with depressed mood Acute on chronic blood loss anemia Supratherapeutic INR S/P MVR (mitral valve replacement) History: MR Assessment: 08/21/2021: OnX + posterior mitral annulus patch with bovine pericardial + Left CryoMAZE + Left atrial appendage ligation Plan: ASA, start Coumadin 08/24, hep gtt History of non-ST elevation myocardial infarction (NSTEMI) ESRD on hemodialysis (HCC) Atrial fibrillation (HCC) on Coumadin and Amiodarone Secondary hyperparathyroidism, renal (HCC) Reportedly elevated PTH High PhxCa ratio in the past Now with worsening metastatic calcifications Will recheck Ca, PO4, Vitamin D, and PTH Continue phosphate binders If PTH elevated, ? Need to calcimemtics to suppress the PTH Will discuss further with the nephrology team MEDICATIONS Current Facility-Administered Medications Medication Dose Route Frequency NaCl 0.9% iv flush bag 20 mL INTRAVENOUS PRN acetaminophen 650 mg tab(s) (TYLENOL) 650 mg ORAL q 6 H PRN aspirin 81 mg chewable tab(s) 81 mg ORAL DAILY midodrine 20 mg tab(s) (PROAMATINE) 20 mg ORAL q 8 H cinacalcet 60 mg tab(s) (SENSIPAR) 60 mg ORAL DAILY iv contrast (radiology procedure) INTRAVENOUS DIRECTED PRN sevelamer carbonate 800 mg tab(s) (RENVELA) 800 mg ORAL TID w MEALS oxyCODONE IR 10 mg tab(s) (ROXICODONE) 10 mg ORAL q 6 H PRN cholecalciferol 5,000 Units tab(s) (VITAMIN D3) 5,000 Units ORAL DAILY heparin iv infusion 25,000 units in NaCl 0.45% 250 mL LOW DOSE/ACS NOMOGRAM 0-3,000 Units/hr INTRAVENOUS CONTINUOUS And heparin RATE CHANGE bolus 1,000-4,000 Units for subtherapeutic PTTAC results 1,000-4,000 Units INTRAVENOUS PRN clobetasol topical ointment 0.05% (TEMOVATE) TOPICAL BID polyethylene glycol 3350 17 g packet 17 g ORAL DAILY calcitriol 1.5 mcg cap(s) (ROCALTROL) 1.5 mcg ORAL Labs: Glucose control: CBC: Recent Labs 04/28/25 0145 04/27/25 0027 04/26/25 2116 04/26/25 1401 04/25/25 0751 04/24/25 0645 04/23/25 1237 04/22/25 1044 WBC 6.07 5.86 6.68 6.07 6.22 7.98 9.99 10.90 HB 8.7* 9.4* 8.4* 8.8* 8.0* 8.4* 8.2* 6.9* HCT 29.3* 31.8* 27.1* 29.9* 26.1* 28.1* 26.4* 23.6* PLT 326 354 325 314 281 301 323 297 MCV 93.0 92.7 90.6 92.3 90.9 92.7 91.0 91.5 RDWCV 19.1* 19.3* 19.0* 19.6* 19.4* 19.3* 19.6* 20.9* COAG: Recent Labs 04/28/25 0145 04/27/25 1945 04/27/25 1425 04/27/25 0704 04/27/25 0028 04/26/25 2115 04/26/25 1401 04/25/25 1033 04/24/25 1716 04/22/25 0135 04/21/25 1108 APTT 43.5* 53.5* 40.9* 49.2* 43.0* 41.2* -- 75.7* -- -- 62.7* INR 1.4* -- -- -- 1.7* 1.7* 1.9* 5.3* 5.4* 3.9* 5.1* BMP: Recent Labs 04/28/25 0145 04/27/25 0028 04/26/25 1401 04/25/25 0800 04/24/25 0645 04/23/25 1237 04/22/25 0136 04/21/25 1108 GLUC 75 72* 72* 68* 79 94 96 85 NA 136 136 137 135* 133* 136 139 137 K 4.8 4.6 4.7 4.8 4.6 4.3 4.5 4.4 CHLOR 95* 94* 95* 95* 94* 94* 99 95* CO2 22 22 26 23 23 25 25 18* ANION 19* 20* 16* 17* 16* 17* 15 24* BUN 14 24 20 26* 14 29* 17 54* CREAT 4.74* 6.69* 5.73* 7.04* 4.83* 7.96* 5.68* 12.66* CHEM: Recent Labs 04/28/2514404/27/25 0028 04/26/25 1401 04/25/25 0800 04/24/25 0645 04/23/25 1237 04/22/25 0136 04/21/25 1108 ALB 3.2* 3.6* 3.3* 3.1* 3.1* 3.1* 3.1* 3.1* TPROT -- -- -- -- -- -- -- 7.7 CA 8.3* 8.2* 8.2* 7.8* 8.7 8.3* 9.4 9.4 MG -- -- -- -- -- -- -- 2.3 HEPATIC: Recent Labs 04/21/25 1108 ALKPHOS 151* ALT 9* AST 16 TBILI 0.4 URINALYSIS:No results for input(s): PH, SPGR, UGLUC, UBILI, UKET, UHB, UPROT, UROBIL, UWBC, SSA in the last 168 hours. Invalid input(s): NITR CARDIAC: No results for input(s): CKTEST, CKMB, CKMBP, TROPT, PBNP in the last 168 hours. MICROBIOLOGY: Positive Micro-30 Days No results found for the last 720 hours. Imaging: CXR 04/21/25: TDC with tip in RA. Increase of perihilar and basilar opacities with volume loss, suggesting atelectasis, possible underlying edema/inflammation. Blunting of L CP angle, which may represent tiny effusion or pleural thickening. CT A/P 04/22/25: No abdominal or pelvic subcutaneous fluid collection of gas. Redemonstrated diffuse subcutaneous extensive abdominal wall collaterals, similar to prior CTA 10/17/2024. CT chest 04/22/25: extensive chest wall collaterals, few areas of skin ulceration, no areas of drainable fluid collection. Findings consistent with central venous stenoses. Few patchy groundglass opacities, may be related to mild pulm edema Assessment AND Plan: Elia Weston is a 45 year old male with extensive PMH, significant for ESRD on HD (MWF) last session 04/18 (skipped Friday since he came to ED), CAD s/p CABG, severe MS s/p MVR on Warfarin, pAfib s/p maze procedure and RADHA clip and chronic chest/abdominal/back wounds (3 years) likely secondary to ischemia in context of SVC syndrome and multiple thrombosis, who presented to the ED with 1-day of left chronic chest wound bleeding. Admitted for management of bleeding, and on transfer to [facility], patient began to have significant bleeding from R chest wound. Continuous pressure was applied and bleeding stopped. Now s/p FFP and RBC transfusions as appropriate. Initially started on Vanc/Zosyn given elevated ESR/CRP, no infectious concern on further imaging with improved lactate WBC, so abx were stopped. Dermatology and wound care consulted. IR consulted, planning for venoplasty given INR reversal. 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 Hx of hemorrhagic shock from bleeding abdominal wounds - presenting with acute worsening of pain and bleeding from wounds. Denies purulent discharge from wounds . - Leukocytosis + Elevated CRP 22.1 and ESR 133 + Elevated lactate on presentation; concerned for infected wounds/soft tissue infection. Started on IV vanc/zosyn, later d/janie due to low infectious concern (04/21-04/25) - On admission, acute rise in lactate in light of acute significant bleeding and drop in HGB (8.6 from 9.5 in ED) likely secondary to hypovolemia, also missed dialysis - CT venogram on 10/19/24 with b/l brachiocephalic stenosis w b/l subclavian vein occlusion, extensive venous collaterals - 10/22/24: Venoplasty completed by IR, removed L femoral TDC, exchanged R TDC - blood cultures 04/20/25 with NG5D x2 - AMET for hypotension 80/50, s/p 500 cc LR bolus, scheduled midodrine with improved repeat 102/63 - lactate 2.4 from 1.7, improved from 3.2 at admission. Completed 5d course of IV vanc/zosyn (04/21-04/25) - CT chest and CT A/P 04/22/25 with no drainable fluid collections, extensive chest collaterals - nutritional workup: B12 elevated, folate wnl, iron low 26, TIBC low 137, trans sat wnl, low vit D 22.9, zinc 69 wnl, low vit A 0.10 PLAN: - IR consulted: > venoplasty now planned for 04/29/2025, ok to do procedure with therapeutic INR 2.5-3.5 - plastic surgery consulted: > no indication for surgical intervention at this time - Derm consulted: > pending Nutritional workup (B6, C, essential fatty acids) > will start clobetasol 0.05% ointment BID for wound edge, will determine which lesion to treat, try to simulate tx of PG and assess response - continue vitamin D supplement 5000 u - wound care team consulted, appreciate care - pain control: tylenol 650 mg q6h prn and oxycodone 10 mg po q6h PRN. > added fent 1x to be given with dressing change - Cautious fluid resuscitation in light of acute bleeding and ESRD anuric on HD #Supratherapeutic INR #CAD s/p CABG #Severe MS s/p mechanical MVR on coumadin #Paroxysmal Afib s/p multiple DCCV s/p Maze procedure + RADHA clip (07/2021) - atrial fibrillation and severe mitral stenosis s/p mechanical mitral valve replacement with On-x valve (INR goal 2.5-3.5), Maze procedure and RADHA clip on 08/21/2021. - Goal INR 2.5- 3.5; on warfarin 2.5 mg daily although patient not sure of dose, has been changed recently; last dose of warfarin Thursday 04/19 - INR elevated to 5.1 on admission, improved to 3.9 s/p 2u FFP 04/21 - possible etiology of supratherapeutic INR: warfarin dose (given patient not sure of home dose) vs malnutrition vs liver disease (less likely given AST/ALT wnl) - INR elevated again to 5.3, patient received po vitamin K 5 mg 04/25. Improved to 1.7 PLAN: - given subtherapeutic INR and no intervention by plastic surgery planned, started bridging with warfarin 2.5 mg - continue heparin gtt - Daily INR #ESRD on HD via Right TDC #Chronic Hypotension #Secondary Hyperparathyroidism - iHD at [facility] [place] through R. Tunneled HD catheter MWF - Last dialysis session Friday04/18/2025; missed Fri session because he presented to [facility] ED - anuric at baseline per patient - Serum P=9.7 - completed HD 04/21, now on MWF - PTH elevated 578, Ca 8.3 low PLAN: - nephrology consulted: > Resume MWF HD schedule > start calcitriol MWF - Continue Sensipar, renvela with meals - continue home Midodrine 20mg daily #Anemia of Chronic Disease/ESRD - Baseline hemoglobin 9-11 - iron studies 12/2024: iron 33, TIBC 156, Iron sat 21, ferritin 1327 - Hgb dropping iso bleeding wounds, as above. - received 1u pRBC 04/21, Hgb from 7.3 -> 7.7 post-transfusion - Hgb 6.9 on 04/22, s/p additional 2u pRBC with Hgb in ~8s PLAN: - Hgb goal >8 - chronic wound mgmt, as above #Code status - Full # Diet - renal # VTE PPx - heparin gtt, bridge to warfarin # Dispo Planning - Pending clinical course, SW consulted for recent unemployment, c/f food insecurity These recommendations and plan are not final until co-signed by the attending physician Marylin Raymond MD. Parker Moe MD PGY-1 04/28/2025 6:17 AM PT PNL PPP Collected: 04/28/2025 1:45 AM Status: F Source: [facility] Order Comment: Specimen Type : BLOOD SPECIMEN Ordering Facility: [facility] Address: [address] [place] [address] TYPE CODE TESTS RESULT OUT OF RANGE REFERENCE UNITS LAB 5902-2(LOINC) Prothrombin time 15.2 High 9.7-13.0 sec LAB 6301-6(LOINC) INR PPP 1.4 High 0.9-1.3 Result Comment: Vitamin K An tagonist (VKA) Therapeutic Range: INR 2 to 3 (Target INR of 2.5) Note: For patients treated with VKA drugs, such as warfarin, the [place] [employer] 2012 Guideline recommends a therapeutic INR range of 2 to 3 (target INR of 2.5). This recommendation includes high-risk patients with antiphospholipid syndrome with previous arterial or venous thromboembolism, current-generation mechanical or bioprosthetic aortic heart valve replacement. Note: Patients with mechanical aortic valve replacement and additional risk factors for thromboembolic events (atrial fibrillation, previous thromboembolism, LV dysfunction, hypercoagulable conditions) or an older generation mechanical AVR (i.e., ball in-Cage) or any mechanical MVR should have a INR therapeutic range of 2.5 to 3.5 (target INR of 3). Ranjit GH, et al. Chest 2012, 141:7S-47S Kevin RA, et al. [facility] 2017, 70: 252-289 Performed By: #### PTTAC, 34 528-0 #### [facility] CLIA [id number] [address] [place] [address] [place] PTT, ANTICOAGULANT THERAPY Collected: 0 04/28/2025 1:45 AM Status: F Source: [facility] Order Comment: Specimen Type : BLOOD SPECIMEN Ordering Facility: [facility] Address: [address] [place], [place] [address] TYPE CODE TESTS RESULT OUT OF RANGE REFERENCE UNITS LAB 28031-0(LOINC) aPTT PPP 43.5 High 23.0-32.4 sec Performed By: #### PTTAC, 34 528-0 #### [facility] CLIA [id number] [address] [place] [address] [place] CBC PNL BLD AUTO Collected: 1:45 AM Status: F Source: [facility] Order Comment: Specimen Type : BLOOD SPECIMEN Ordering Facility: [facility] Address: [address] [place] [address] TYPE CODE TESTS RESULT OUT OF RANGE REFERENCE UNITS LAB 6690-2([facility]) WBC # Bld Auto 6.07 3.70-11.00 k/uL LAB 789-8(INC) RBC # Bld Auto 3.15 Low 4.20-6.00 m/uL LAB 718-7(LOINC) Hgb Bld-mCnc 8.7 Low 13.0-17.0 g/dL LAB 4544-3(INC) Hct VFr Bld Auto 29.3 Low 39.0-51.0 % LAB 787-2(LOINC) MCV RBC Auto 93.0 80.0-100.0 fL LAB 785-6(LOINC) MCH RBC Qn Auto 27.6 26.0-34.0 pg LAB 786-4(LOINC) MCHC RBC Auto-mCnc 29.7 Low 30.5-36.0 g/dL LAB 80219-6(LOINC) RDW RBC-Rto 19.1 High 11.5-15.0 % LAB 777-3(INC) Platelet # Bld Auto 326 150-400 k/uL LAB 53089-1([facility]) PMV Bld Auto 10.7 9.0-12.7 fL LAB 771-6(INC) nRBC # Bld Auto <0.01 <0.01 k/uL Performed By: #### 75932-7 # ### [facility] CLIA [id number] [address] [place] [address] [place] RENAL FUNC 2000 PNL SERPL Collected: 1:45 AM Status: F Source: [facility] Order Comment: Specimen Type : BLOOD SPECIMEN Ordering Facility: [facility] Address: [facility] [place] [address] TYPE CODE TESTS RESULT OUT OF RANGE REFERENCE UNITS LAB 1751-7(LOINC) Albumin SerPl-mCnc 3.2 Low 3.9-4.9 g/dL LAB 05824-0(LOINC) Calcium SerPl-mCnc 8.3 Low 8.5-10.2 mg/dL LAB 2777-1(LOINC) Phosphate SerPl-mCnc 4.0 2.7-4.8 mg/dL LAB 2345-7(LOINC) Glucose SerPl-mCnc 75 74-99 mg/dL Result Comment: The [place] Diabetes Association (ADA) provides guidance for cutoff values for fasting glucose and random glucose. The ADA defines fasting as no caloric intake for at least 8 hours. Fasting plasma glucose results between 100 to 125 mg/dL indicate increased risk for diabetes (prediabetes). Fasting plasma glucose results greater than or equal to 126 mg/dL meet the criteria for diagnosis of diabetes. In the absence of unequivocal hyperglycemia, results should be confirmed by repeat testing. In a patient with classic symptoms of hyperglycemia or hyperglycemic crisis, random plasma glucose results greater than or equal to 200 mg/dL meet the criteria for diagnosis of diabetes. Reference: Standards of Medical Care in Diabetes 2016, [place] Diabetes Association. Diabetes Care. 2016.39(Suppl 1). LAB 3094-0(LOINC) BUN SerPl-mCnc 14 9-24 mg/dL LAB 2160-0(LOINC) Creat SerPl-mCnc 4.74 High 0.73-1.22 mg/dL LAB 2951-2(LOINC) Sodium SerPl-sCnc 136 136-144 mmol/L LAB 2823-3(LOINC) Potassium SerPl-sCnc 4.8 3.7-5.1 mmol/L LAB 2075-0(LOINC) Chloride SerPl-sCnc 95 Low 98-107 mmol/L LAB 2027-9(LOINC) CO2 SerPl-sCnc 22 22-30 mmol/L LAB 06898-1(LOINC) Anion Gap SerPl-sCnc 19 High 8-15 mmol/L LAB 30070-1(LOINC) eGFRcr SerPlBld CKD-EPI 2020 15 Low >=60 mL/min/1. 73m??? Result Comment: Estimated Gl omerular Filtration Rate (eGFR) is calculated using the 2020 CKD-EPI creatinine equation. This equation utilizes serum creatinine, sex, and age as parameters. The creatinine assay has traceable calibration to isotope dilution-mass spectrometry. Refer to KDIGO guidelines for clinical interpretation. In patients with unstable renal function, e.g. those with acute kidney injury, the eGFR may not accurately reflect actual GFR. Performed By: #### 37190-1 # ### [facility] CLIA [id number] [address] [place] [address] [place] PTT, ANTICOAGULANT THERAPY Collected: 0 04/27/2025 7:45 PM Status: F Source: [facility] Order Comment: Specimen Type : BLOOD SPECIMEN Ordering Facility: [facility] Address: [address] [place] [address] TYPE CODE TESTS RESULT OUT OF RANGE REFERENCE UNITS LAB 96675-1(LOINC) aPTT PPP 53.5 High 23.0-32.4 sec Performed By: #### PTTAC ### # [facility] CLIA [id number] [address] [place] [address] [place] CONSULT [place]OG Observed: 04/27/2025 3:59 PM Status: COMPLETED Source: [facility] HNO ID: [id number] Author: BHAKTI KIRBY MD Service: Dermatology Author Type: Resident Type: Consult Progress Note Filed: 04/28/2025 13:14 Note Text: Attestation with edits by Bhakti Kirby MD at 04/28/2025 1:14 PM I was physically present during the critical/mendoza portions of this encounter and during all procedures, and agree with the above evaluation, assessment, and treatment plan. I reviewed the patient's chart and discussed care with the patient and the other physicians involved. Bhakti Kirby MD DERMATOLOGY HOSPITAL CONSULT SERVICE PROGRESS NOTE Interval Events - seen in HD - feels better today - has decided he will try the cream PHYSICAL EXAM BP 93/62 Pulse 74 Temp 36.9 ?C (98.4 ?F) (Oral) Resp 16 Wt 115.6 kg (254 lb 13.6 oz) SpO2 100% BMI 36.90 kg/m? GEN: Age appropriate Patient declines physical examination given pain with dressing changes/location in HD. Reviewed photos in chart from 04/22/2025: - L chest with deep ulcer with granulation tissue at the periphery and hemorrhagic crust at the center. Worsening compared to photo from 12/04/24. - R chest with ulceration deeper than photo 09/06/24 - Back with scattered ulcerations with granulation tissue at base and hyperpigmented periphery. Possible rolled border. Hypopigmented cribriform scars with hyperpigmented periphery. Enlarged compared to photos from November 2024 and August 2024. - Abdomen with scattered ulcerations with granulation tissue at base and hyperpigmented periphery. Hypopigmented scars with hyperpigmented periphery. Improving compared to photos from August 2024. LABORATORY TESTS: DATA: IMAGING: No pertinent imaging LABS: - CBC without leukocytosis as of 04/27 - total Ca low - CRP elevated 22.1 - ESR elevated 133 - Blood cultures (04/20) - NGTD Vit B 12 >2,000 (high) Folate, zinc WNL Vit D 22.9 (low) Iron 26, TIBC 137, Tsat WNL B6, C, A pending BIOPSY: Punch biopsy 10/15/24 FINAL DIAGNOSIS A. Skin, chest, punch biopsy: - Dermal fibrosis and reactive vascular proliferation, see comment. APF/dknikhil 10/18/2024 at 1513 EST Diagnosis Comment Histologic sections display a basket-weave to compact orthokeratotic stratum corneum with focal parakeratosis overlying a markedly acanthotic and mildly spongiotic epidermis. Within the dermis, there is a superficial and deep interstitial vascular and histiocytic proliferation with collagen fibrosis and elastic fiber disarray. There is a scant perivascular mixed infiltrate including lymphocytes, histiocytes, and neutrophils. Eosinophils are not readily identified. To further evaluate this specimen, immunohistochemical and special stains were performed and compared to appropriate controls. Gram, GMS, and AFB-Christiana stains are negative for evidence of infectious organisms. A Von Kossa stain is negative for evidence of intraluminal or dermal calcium deposition. In order to further evaluate the vascular proliferation, immunohistochemical staining is performed at the [facility] on block A1 with appropriate controls. Stains for CD31 and ERG highlight the vascular endothelial cells, showing that they are mostly small and thin-walled without significant nuclear enlargement or multilayering. The clinical history and photographs are reviewed. Overall, these features are those of dermal fibrosis and a reactive vascular proliferation. These findings could be consistent with reactive ischemic changes in the correct clinical context. Features of pyoderma gangrenosum calciphylaxis are not identified, although the subcutaneous adipose tissue is minimally sampled. Clinical correlation remains essential. 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 On admission, patient had leukocytosis with elevated CRP/ESR and elevated lactate. Patient is on IV antibiotics. Currently patient is afebrile and leukocytosis has resolved. No clinical signs of infection at this time. Punch biopsy 06/26/23 revealed ulcer with dermal fibrosis, vascular ectasia, and reactive vascular proliferation - overall nonspecific findings but could be related to chronic ischemia given patient's history and clinical morphology. Punch biopsy 10/15/24 showing dermal fibrosis and a reactive vascular proliferation which is most consistent with reactive ischemic changes in the correct clinical context. Features of pyoderma gangrenosum, calciphylaxis not identified. Tissue cultures no growth on bacterial culture and NGTD on fungal/AFB. Patient denies the presence of a preceding papule or pustule that progresses to ulceration quickly. He endorses the lesions start as hyperpigmentation and skin tears. Denies painful indurated plaques in areas of ulceration prior to onset. Clinically, initial presentation is not consistent with calciphylaxis. A few features of pyoderma gangrenosum are present, however prior biopsy is supportive of ischemic vasculopathy as likely trigger for non-healing ulcers. Pt remains afebrile without leukocytosis, low concern for infection. He reports improvement in prior wounds. Continue to favor that wounds are related to reactive ischemic changes given patient's co-morbidities (ESRD, HTN, vasculopathy). Given persistent, non-healing wounds, recommend nutritional workup given patient's diet is limited, following labs as they return. Discussed option to repeat biopsy with patient on 04/25 and he declined given that he has had numerous biopsies in the past. Pt feels that when he has received systemic steroids in the past it improved the pain and appearance of his wounds. Given that infectious work up of his wounds has been negative to date, would consider a trial of a topical steroid to a smaller wound to simulate treatment of PG to assess its response. Pt now amenable to this plan. Requested new photos of patient's wounds to be taken during dressings changes and I will review the photos with the patient and decide which lesion to treat. PLAN: (Not final until signed by staff physician) - await remainder of nutritional workup for poorly healing wounds, supplementation as appropriate - Agree with wound care recommendations per WOC team - please order clobetasol 0.05% ointment to be applied to wound edge twice daily - I will discuss with the patient which wound we are going to treat based on his preference and then will discuss it with nursing staff so it can be applied during dressings changes - defer pain control to primary team but would consider pre-medication for wound dressing changes as he is reporting significant pain with these Patient seen and discussed with attending printed circuit board assembler, Dr. Gergory Beltran MD Dermatology PGY-3 04/27/2025 3:59 PM Please use consult pager [phone], Mon-Fri 8am-5pm. Please call adzing and boring machine operator for on-call resident/pager during all other hours. PTT, ANTICOAGULANT THERAPY Collected: 0 04/27/2025 2:25 PM Status: F Source: [facility] Order Comment: Specimen Type : BLOOD SPECIMEN Ordering Facility: [facility] Address: [address] [place] [address] TYPE CODE TESTS RESULT OUT OF RANGE REFERENCE UNITS LAB 20698-8(LOINC) aPTT PPP 40.9 High 23.0-32.4 sec Performed By: #### PTTAC ### # [facility] CLIA [id number] [address] [facility] [place] [address] [place] CON[place] Observed: 04/27/2025 2:05 PM Status: COMPLETED Source: [facility] HNO ID: [id number] Author: ELVA PATEL APRN.FLORAL ASSOCIATE Service: ? Author Type: Nurse Practitioner Type: Consult Progress Note Filed: 04/27/2025 14:10 Note Text: Department of Kidney Medicine [facility] Special[facility] [place] [facility] NEPHROLOGY CONSULT SERVICE PROGRESS NOTE INTERVAL HISTORY: No acute events overnight noted requiring immediate intervention. Patient seen on IHD. Orders placed and confirmed in [facility] Admission weight: 115.6 kg (254 lb 13.6 oz) (Pt refusing to get on scale, states this was his last weight from dialysis on friday) Last recorded weight: 115.6 kg (254 lb 13.6 oz) (Pt refusing to get on scale, states this was his last weight from dialysis on friday) heparin, Last Rate: 1,200 Units/hr (04/27/25 1146) Intake/Output Summary (Last 24 hours) at 04/27/2025 0659 Last data filed at 04/26/2025 2100 Gross per 24 hour Intake 480 ml Output 0 ml Net 480 ml MEDICATIONS: Current Facility-Administered Medications Medication Dose Route Frequency NaCl 0.9% iv flush bag 20 mL INTRAVENOUS PRN acetaminophen 650 mg tab(s) (TYLENOL) 650 mg ORAL q 6 H PRN aspirin 81 mg chewable tab(s) 81 mg ORAL DAILY midodrine 20 mg tab(s) (PROAMATINE) 20 mg ORAL q 8 H cinacalcet 60 mg tab(s) (SENSIPAR) 60 mg ORAL DAILY iv contrast (radiology procedure) INTRAVENOUS DIRECTED PRN sevelamer carbonate 800 mg tab(s) (RENVELA) 800 mg ORAL TID w MEALS oxyCODONE IR 10 mg tab(s) (ROXICODONE) 10 mg ORAL q 6 H PRN cholecalciferol 5,000 Units tab(s) (VITAMIN D3) 5,000 Units ORAL DAILY heparin iv infusion 25,000 units in NaCl 0.45% 250 mL LOW DOSE/ACS NOMOGRAM 0-3,000 Units/hr INTRAVENOUS CONTINUOUS And heparin RATE CHANGE bolus 1,000-4,000 Units for subtherapeutic PTTAC results 1,000-4,000 Units INTRAVENOUS PRN polyethylene glycol 3350 17 g packet 17 g ORAL DAILY ALLERGIES: Gabapentin and Trazodone VITAL SIGNS: BP (!) 88/48 Pulse 72 Temp 36.8 ?C (98.2 ?F) (Oral) Resp 16 Wt 115.6 kg (254 lb 13.6 oz) SpO2 99% BMI 36.90 kg/m? PHYSICAL EXAM: GENERAL: awake, alert, in no acute distress, cooperative, lying in bed SKIN: Skin color, texture, turgor normal. No rashes or lesions. HEENT: normocephalic,moist oral mucosa NECK: no JVD, masses or bruits LUNGS: Good diaphragmatic excursion and normal respiratory effort. CARDIAC: RRR ABDOMEN: soft, round EXTREMITIES: + BLE edema NEURO: AOx3, normal speech, muscle strength grossly intact ACCESS: RIJ TDC accessed with normal findings Lines, Drains, and Airways Line Duration Dialysis / Apheresis Double Lumen External Facility Tunneled Right -- days Peripheral Left Forearm 20 Gauge -- days Peripheral 04/26/25 2100 [facility] Right Forearm 20 Gauge <1 day Labs: Recent Labs 04/27/25 0704 04/27/25 0028 04/27/25 0027 04/26/25 2116 04/26/25 2115 04/26/25 1401 04/25/25 1033 04/25/25 0800 WBC -- -- 5.86 6.68 -- 6.07 -- -- HB -- -- 9.4* 8.4* -- 8.8* -- -- HCT -- -- 31.8* 27.1* -- 29.9* -- -- PLT -- -- 354 325 -- 314 -- -- INR -- 1.7* -- -- 1.7* 1.9* < > -- APTT 49.2* 43.0* -- -- 41.2* -- < > -- NA -- 136 -- -- -- 137 -- 135* K -- 4.6 -- -- -- 4.7 -- 4.8 CHLOR -- 94* -- -- -- 95* -- 95* CO2 -- 22 -- -- -- 26 -- 23 ANION -- 20* -- -- -- 16* -- 17* BUN -- 24 -- -- -- 20 -- 26* CREAT -- 6.69* -- -- -- 5.73* -- 7.04* GLUC -- 72* -- -- -- 72* -- 68* CA -- 8.2* -- -- -- 8.2* -- 7.8* P -- 4.8 -- -- -- 4.5 -- 5.5* < > = values in this interval not displayed. Recent Labs 04/27/25 0028 04/26/25 1401 04/25/25 0800 ALB 3.6* 3.3* 3.1* ASSESSMENT: Mr. 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 Labs on presentation significant for elevated lactic acid, leukocytosis, anemia and supratherapeutic INR. Of note, his previous admission 10/12/2024-11/02/2024 was also for pain and bleeding of the wounds/skin ulcers. Biopsy was consistent with reactive ischemic changes at the time without features of Polyderma Gangrenosum or calciphylaxis. Patient was admitted under general internal medicine team for further management. Nephrology consulted for ESR management. 1.ESRD History -Etiology: HTN Renal Biopsy 2006 renal failure, of undetermined etiology. All of the glomeruli examined are obliterated by total global sclerosis -Date of first HD: 2005 -Current HD unit: [facility] -Configuration Release Manager: Dr Melendez -Schedule: Fri-Fri-Fri -Time: 4.5 hrs -EDW: 114 kg -Date of last outpatient dialysis: 04/18/25 -Access: R IJ TDC 2.Electrolytes/acid-base: -stable, modulating with DRYWALL SANDER 3.Blood Pressure/Volume Status: -BP 113/58 - SBP 90-115 -Hypotension modulated with Midodrine 20 mg Q8 -OPT: Midodrine 10 mg PRN dialysis -EDW 114 kg, Pre-weight today 115.6 kg with UF goal 1.5-2.5 L ast tolerated -hypervolemia on exam with large rounder taut abd and slight taut BLE 4.Anemia Due to multiple mechanisms: -Hgb below ESRD goal -S/P RBC transfusions 04/22 -Transfuse per primary -Iron Stores 04/04: Ferritin 653 Iron 25 TIBC 180 TSAT 14 -Avoid IV iron in the setting of infection -OPT: Venofer 100 mg TIW -ANABELLA: Consider if hgb <8 or LOS >7days -OPT: Mircera 225 mcg Q2 weeks last given unknown 5.Secondary renal hyperparathyroidism: -Phos stable on Renvela -Calcium stable -Sensipar 60 mg every day -OPT: Calcitriol 1.5 mcg TIW 6. Chronic wounds -Per dermatology: continue to favor that wounds are related to reactive ischemic changes given patient's co-morbidities PLAN: -IHD today x 4.5 hours ordered, however, clotted off early, 3K bath, UF goal 2.5-3 L as tolerates -will continue to utilize flushes during dialysis as we are avoiding heparin in the circuit at this time given INR levels and ongoing bleeding issues - last iron was low - will order iron on IHD once clear from infectious -Next dialysis planned for // schedule -Continue Renvela with meals -Continue Sensipar daily -calcitriol 1.5 mcg MWF -continue PRN Midodrine with dialysis to support BP to allow for volume removal Standard ESRD recommendations and precautions: - Strict IANDOs and Daily weight - Consider a RENAL Diet for HD patients - Fluid restriction < 1 L - Start Nephrocap or other renal multivitamin to replace water-soluble vitamins lost during dialysis - Avoid Lovenox, Demerol, Morphine, K-containing IVF, Mg- or Phos- containing enemas - Dose meds GFR 10 ml/min Outpatient dialysis disposition plan: contact [phone] and ask to speak with the director of front office as needed for assistance with post-discharge arrangements. Please DO NOT schedule patient for a nephrology follow up appointment. Kidney care will be provided by the primary data warehousing engineer at their dialysis unit upon hospital discharge. Elva Patel APRN.FLORAL ASSOCIATE Nephrology and Hypertension [facility] April 27, 2025 2:05 PM PAGER # [phone] Disclosures: Parts of the current progress note may have been copied from a previous note. FOR AFTER HOUR CONCERNS BETWEEN 5PM - 7AM CONTACT ON-CALL NEPHROLOGY FELLOW [phone] CONSULT Observed: 04/27/2025 1:54 PM Status: COMPLETED Source: [facility] HNO ID: [id number] Author: MYRIAM WARD APRN.CNP Service: Plastic Surgery Author Type: Nurse Practitioner Type: Consults Filed: 04/27/2025 14:48 Note Text: PLASTIC SURGERY CONSULTATION SERVICE DATE: 04/27/2025 SERVICE TIME: 1300 Reason for Consultation: chest and back wounds Requesting Physician: Dr. Raymond Subjective HPI: Mr. Weston is a 45 year old male h/o ESRD, HTN, pAfib, CAD s/p CABG, severe MS s/p MVR and MAZE, PE, YEIMY, chronic SVC and brachiocephalic chronic occlusive disease c/b chronic chest wall and abdominal varices venous wounds for approximately 3 years. Presented to [facility] on 04/21 with worsening wounds and bleeding from the wounds. He underwent skin biopsy last on 10/18/24 which reported dermal fibrosis and reactive vascular proliferation. On arrival to ED, he found to have an elevated INR s/p 2 FFP and 1 PRBC. Current wound care is being managed by Wound Care Team and Dermatology. IR consulted for venoplasty. Plastic Surgery consulted for evaluation of wound. Pt reports he is getting his dressings changed at 4pm and deferred exam. PAST MEDICAL HISTORY Diagnosis Date Anemia of chronic disorder Anuria Atrial fibrillation (HCC) 12/02/2018 on Coumadin and Amiodarone BMI 40.0-44.9, adult (HCC) ESRD (end stage renal disease) on dialysis (HCC) 2005 ESRD from HTN Dialysis M,W,[facility] [phone] Essential hypertension, benign 1998 EKG 09/30 NL. Hearing loss of both ears History of mitral valve stenosis Hx of bacterial endocarditis Hyperparathyroidism due to end stage renal disease on dialysis (HCC) Kidney disease 2005 ESRD due to HTN; on IHD since 2005 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 and scoliosis h/o this 3 y. Dx by xray. Mechanical complication of arteriovenous fistula surgically created ([facility]) Mechanical complication of dialysis catheter ([facility]) Mitral valve disease Morbid obesity ([facility]) MS (mitral stenosis) 10/08/2018 Transesophageal US YEIMY on CPAP Paroxysmal atrial fibrillation ([facility]) PE (pulmonary thromboembolism) ([facility]) Pelvic mass Pseudoaneurysm of AV hemodialysis fistula ([facility]) Wound of right side of back from friction/rubbing of jacket, goes to wound care center in [place] PAST SURGICAL HISTORY Procedure Laterality Date ARTERIOVENOUS FISTULA Left 08/29/2010 CAPSULE ENDOSCOPY 07/01/2023 CARDIOVERSION-ELECTIVE N/A 12/03/2018 200 joules synchronized - successful COLONOSCOPY 07/01/2023 EGD 06/27/2023 HERNIA REPAIR HX PAST SURGICAL HISTORY OF 08/29/2010 dialysis fistula left arm PAST SURGICAL HISTORY OF Right 03/2019 Right leg femoral vein to superficial femoral artery loop graft mid thigh REPAIR CLEFT LIP RMVL LEANN CVC W/O SUBQ PORT/TOBACCO PREVENTION HEALTH EDUCATOR 01/17/2013 SHX CARDIAC RADIOFREQUENCY ABLATION 08/21/2021 s/p Maze procedure SHX MITRAL VALVE REPLACEMENT 08/21/2021 FAMILY HISTORY Adopted: Yes Problem Relation Age of Onset None Mother None Father Aneurysm No Family History Social History Tobacco Use Smoking status: Never Smokeless tobacco: Never Vaping Use Vaping status: Never Used Substance Use Topics Alcohol use: No Drug use: No aspirin 81 mg chewable tablet, Take 81 mg by mouth., Disp: , Rfl: , 04/20/2025 cinacalcet (SENSIPAR) 60 mg tablet, Take 1 tablet by mouth once daily., Disp: , Rfl: , 04/20/2025 calcitriol (ROCALTROL) 0.5 mcg capsule, Take 3 capsules by mouth every Friday, Friday, and Friday., Disp: , Rfl: , 04/20/2025 B Complex-Vitamin C-Folic Acid (JOHNSON-BRENDA) 0.8 mg tab, Take 1 tablet by mouth once daily., Disp: , Rfl: , 04/20/2025 midodrine (PROAMATINE) 10 mg tablet, Take 2 tablets by mouth every 8 hours., Disp: 180 tablet, Rfl: 11, 04/21/2025 Morning melatonin 3 mg tablet, Take 3 tablets by mouth daily at bedtime., Disp: , Rfl: , Unknown warfarin (COUMADIN) 2.5 mg tablet, Take 1 tablet by mouth once daily., Disp: , Rfl: , Unknown Darbepoetin Osito In Polysorbat (ARANESP) 60 mcg/0.3 mL syrg, Inject 0.3 mL subcutaneously every Friday. (Patient not taking: Reported on 01/25/2025), Disp: , Rfl: , Unknown sodium zirconium cyclosilicate (LOKELMA) 10 gram oral packet, Take 1 Packet by mouth once daily. Mix powder in 45 mL of water, stir and drink immediately. (Patient not taking: Reported on 01/25/2025), Disp: , Rfl: sevelamer carbonate (RENVELA) 800 mg tablet, Take 3 tablets by mouth three times a day with meals. (Patient not taking: Reported on 01/25/2025), Disp: , Rfl: polyethylene glycol 3350 (MIRALAX) 17 gram packet, Take 1 Packet by mouth once daily. Dissolve dose in 4 - 8 ounces of liquid and take as directed., Disp: 60 Each, Rfl: 0, Unknown oxyCODONE IR (ROXICODONE) 10 mg tab, Take 10 mg by mouth every 8 hours as needed for pain., Disp: , Rfl: , Unknown Current Facility-Administered Medications Medication Dose Route Frequency NaCl 0.9% iv flush bag 20 mL INTRAVENOUS PRN acetaminophen 650 mg tab(s) (TYLENOL) 650 mg ORAL q 6 H PRN aspirin 81 mg chewable tab(s) 81 mg ORAL DAILY midodrine 20 mg tab(s) (PROAMATINE) 20 mg ORAL q 8 H cinacalcet 60 mg tab(s) (SENSIPAR) 60 mg ORAL DAILY iv contrast (radiology procedure) INTRAVENOUS DIRECTED PRN sevelamer carbonate 800 mg tab(s) (RENVELA) 800 mg ORAL TID w MEALS oxyCODONE IR 10 mg tab(s) (ROXICODONE) 10 mg ORAL q 6 H PRN cholecalciferol 5,000 Units tab(s) (VITAMIN D3) 5,000 Units ORAL DAILY heparin iv infusion 25,000 units in NaCl 0.45% 250 mL LOW DOSE/ACS NOMOGRAM 0-3,000 Units/hr INTRAVENOUS CONTINUOUS And heparin RATE CHANGE bolus 1,000-4,000 Units for subtherapeutic PTTAC results 1,000-4,000 Units INTRAVENOUS PRN polyethylene glycol 3350 17 g packet 17 g ORAL DAILY Allergies As of Date: 04/20/2025 Allergen Noted Reaction GABAPENTIN 08/09/2021 Unknown and Other: See Comments TRAZODONE 10/11/2024 Other: See Comments Fully Assessed 04/20/2025 Objective BP 88/48 Pulse 72 Temp (Src) 98.2 (Oral) Resp 16 Wt 254 lb 13.6 oz (115.6kg) SpO2 99% O2 Therapy: Room Air Gen: AANDOx3 Pulm: room air, regular respiratory rate wound images reviewed in epic- full thickness wounds to chest and back. No evidence of acute infection DATA: Imaging: CT CHEST W IV CONT IMPRESSION: 1. Extensive chest wall collaterals are noted bilaterally. Few areas of skin ulceration are noted. No areas of drainable fluid collection are noted. 2. Findings consistent with central venous stenoses/occlusion, as discussed in the body of report. 3. Few patchy groundglass opacities are noted in both lungs, which may be related to mild pulmonary edema. Laboratory: CBC Recent Labs 04/27/25 0027 04/26/25 2116 04/26/25 1401 WBC 5.86 6.68 6.07 HB 9.4* 8.4* 8.8* HCT 31.8* 27.1* 29.9* PLT 354 325 314 BMP, Mg, Phos Recent Labs 04/27/25 0028 04/26/25 1401 04/25/25 0800 NA 136 137 135* K 4.6 4.7 4.8 CHLOR 94* 95* 95* CO2 22 26 23 BUN 24 20 26* CREAT 6.69* 5.73* 7.04* GLUC 72* 72* 68* CA 8.2* 8.2* 7.8* P 4.8 4.5 5.5* Coags Recent Labs 04/27/25 0704 04/27/25 0028 04/26/25 2115 04/26/25 1401 04/25/25 1033 04/24/25 1716 APTT 49.2* 43.0* 41.2* -- 75.7* -- INR -- 1.7* 1.7* 1.9* 5.3* 5.4* Impression/Recommendations 45 year old male PMH, significant for ESRD on HD (MWF) last session 04/18 (skipped Friday since he came to ED), CAD s/p CABG, severe MS s/p MVR on Warfarin, pAfib s/p maze procedure and RADHA clip and chronic chest/abdominal/back wounds (3 years) likely secondary to ischemia in context of SVC syndrome and multiple thrombosis, who presented to the ED with 1-day of left chronic chest wound bleeding. Admitted for management of bleeding Full thickness wound of back and chest, d/t chronic SVC syndrome -no indication for surgical intervention at this time -continue with wound care team and dermatology for wound management -agree with IR for venoplasty -optimize nutrition to aid in wound healing Plastic Surgery will sign off. Please re-consult as needed Assessment and plan discussed with staff physician, Dr. Parker. SIGNATURE: Myriam Ward APRN.CNP PATIENT NAME: Elia Weston DATE: April 27, 2025 TIME: 1:54 PM PAGER: [phone] After 430PM AND on weekends, please page [phone] (Plastic Surgery on-call) NUTRITION Observed: 04/27/2025 11:58 AM Status: COMPLETED [facility] [facility] HNO ID: [id number] Author: NABILA CHARLES DTR Service: Nutrition Therapy Author Type: Tractor Driver Teamster Type: Nutrition Filed: 04/27/2025 12:03 Note Text: NUTRITION THERAPY CLERICAL ORDER FILLER NOTE SERVICE DATE: 04/27/2025 SERVICE TIME: 1158 Visit Type: Length of Stay Evaluation Goals Met: Not Met Plan of Care: Supplements: Boost Glucose Control, Nepro Follow-Up: Tech Reassessment Nursing Admission Assessment Malnutrition Score: 0 Nutrition Intake: Diet Orders (From admission, onward) Start Ordered 04/25/25 1645 DIET RENAL START NOW Question: Renal Answer: 2400 MG K / 2400 MG NA 04/25/25 1643 Average Daily Calorie Intake (kcal): 751 kcal Average Daily Protein Intake (gm): 21 gm Average intake over: 3 days Appetite: Fair (The patient has been consuming 50-80% of meals when able but has missed meals due to dialysis and testing/procedures recently.) GI Symptoms: None Anthropometrics: Body mass index is 36.9 kg/m?. Weight Change: Stable Food Preferences: The paitient usually drinks Nepro Butter Pecan protein supplements, however that flavor is no longer carried. Nepro marlow and Boost Glucose Control chocolate was pended for the patient to try. MNT Billing: $ Routine Care : 1 unit SIGNATURE: Nabila Charles DTR PATIENT NAME: Elia Weston DATE: April 27, 2025 TIME: 12:03 PM PTT, ANTICOAGULANT THERAPY Collected: 0 04/27/2025 7:04 AM Status: F Source: [facility] Order Comment: Specimen Type : BLOOD SPECIMEN Ordering Facility: [facility] Address: [address] [place] [address] TYPE CODE TESTS RESULT OUT OF RANGE REFERENCE UNITS LAB 86571-8(LOINC) aPTT PPP 49.2 High 23.0-32.4 sec Performed By: #### PTTAC ### # [facility] CLIA [id number] [address] [place] [address] [place] PROGRESS Observed: 04/27/2025 5:08 AM Status: COMPLETED Source: [facility] HNO ID: [id number] Author: MARYLIN RAYMOND MD Service: General Internal Medicine Author Type: Resident Type: Progress Notes Filed: 04/27/2025 16:15 Note Text: Attestation signed by Marylin Raymond MD at 04/27/2025 4:15 PM [facility] STAFF PHYSICIAN NOTE OF PERSONAL INVOLVEMENT IN CARE I have reviewed the note obtained and documented and I personally participated in the mendoza components. I have discussed the case and management of the patient's care. I reviewed the medical record in detail. The following comments revise or confirm relevant mendoza components of their note. Agree with documented note. 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 IR ok w/ INR <3.5 -Pending vit C and B6 -Dialysis MWF -Seen by derm who will attempt topical steroid for wounds -Appreciate plastic-wound sg team input -SW consult for recent unemployment due to absence from illness and concern for food insecurity SIGNATURE: Marylin Raymond MD, MPH Staff, Department of Hospital Medicine 04/27/2025 INPATIENT INTERNAL MEDICINE PROGRESS NOTE PATIENT NAME: Elia Weston ; AGE: 6 1980; 45 year old HOSPITAL ROOM: G090 [facility]/G090-33 DATE OF SERVICE: 04/27/2025 ATTENDING PHYSICIAN: Marylin Raymond MD TIME OF SERVICE: AM Rounds SERVICE: Inpatient Medicine service Admit Date: 04/20/2025 Length of Stay: 6 Reason for Admission: Bleeding from wounds. Brief Summary Mr. 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 Patient was hospitalized in September 2024 to October 2024 for pain and bleeding from the wounds. Patient was seen by dermatology back then for his skin ulcers. Biopsy performed and was most c/w reactive ischemic changes without features of Pyoderma Gangrenosum or Calciphylaxis. Now, plan for venoplasty with IR pending improvement in INR. Dermatology consulted, plan for starting topical steroid on wound edge. Interval Events/Subjective: - Overnight, difficulty with drawing labs due to hard stick - success with us-guided IV placement. This morning, patient was in dialysis. - Afebrile, SBP 80s to 110s, 2 low MAPS 53 and 58, HR 66-79, R 16-18, SpO2 95-100% on RA. - required oxycodone 10 mg q6h x2 Objective: BP: 115/76 Temp: 36.7 ?C (98.1 ?F) Temp src: Oral Pulse: 66 Resp: 16 O2 Therapy: Room Air SpO2: 99 % Physical Exam- from 04/26. In dialysis this morning, will follow-up in afternoon. GENERAL: Alert, no distress, cooperative SKIN: Patient declined examination of wounds. Wounds non-bleeding. Previously seen: R and L anterior and posterior chest wounds - chronic, bleeding, no purulent discharge. Right flank/back chronic wounds. Images scanned in chart. LUNGS: Lungs clear to auscultation bilaterally, no wheezes or crackles. CARDIAC: Regular rate and rhythm. Normal S1 and S2; no rubs, murmurs, or gallops ABDOMEN: Distended, non-tender. EXTREMITIES: No LE edema NEURO: AxOx3, following commands and answering questions appropriately. Lines, Drains, and Airways Line Duration Dialysis / Apheresis Double Lumen External Facility Tunneled Right -- days Peripheral Left Forearm 20 Gauge -- days Peripheral 04/26/25 2[facility] Right Forearm 20 Gauge <1 day Active Hospital Problems Diagnosis Bleeding from open wound of chest wall, right, initial encounter Hypervolemia Difficult intravenous access Consult IR prior to removal of any catheters Bleeding from wound Open chest wound, right, sequela Unknown etiology Open chest wound, left, sequela Unknown etiology Back wound, unspecified laterality, sequela - Mid Back - Unknown Etiology - POA - Right Upper Back - Unknown Etiology - POA Open wound of abdomen Unknown Etiology Open wound of right thigh Unknown Etiology Wounds, multiple Anemia due to multiple mechanisms Hemorrhage from open wound of left chest wall Ulcers, venous (HCC) Status post Maze operation for atrial fibrillation 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 Acquired hypothyroidism Adjustment disorder with depressed mood Acute on chronic blood loss anemia Supratherapeutic INR S/P MVR (mitral valve replacement) History: MR Assessment: 08/21/2021: OnX + posterior mitral annulus patch with bovine pericardial + Left CryoMAZE + Left atrial appendage ligation Plan: ASA, start Coumadin 08/24, hep gtt History of non-ST elevation myocardial infarction (NSTEMI) ESRD on hemodialysis (HCC) Atrial fibrillation (HCC) on Coumadin and Amiodarone Secondary hyperparathyroidism, renal (HCC) Reportedly elevated PTH High PhxCa ratio in the past Now with worsening metastatic calcifications Will recheck Ca, PO4, Vitamin D, and PTH Continue phosphate binders If PTH elevated, ? Need to calcimemtics to suppress the PTH Will discuss further with the nephrology team MEDICATIONS Current Facility-Administered Medications Medication Dose Route Frequency NaCl 0.9% iv flush bag 20 mL INTRAVENOUS PRN acetaminophen 650 mg tab(s) (TYLENOL) 650 mg ORAL q 6 H PRN polyethylene glycol 3350 17 g packet 17 g ORAL DAILY PRN aspirin 81 mg chewable tab(s) 81 mg ORAL DAILY midodrine 20 mg tab(s) (PROAMATINE) 20 mg ORAL q 8 H cinacalcet 60 mg tab(s) (SENSIPAR) 60 mg ORAL DAILY iv contrast (radiology procedure) INTRAVENOUS DIRECTED PRN sevelamer carbonate 800 mg tab(s) (RENVELA) 800 mg ORAL TID w MEALS oxyCODONE IR 10 mg tab(s) (ROXICODONE) 10 mg ORAL q 6 H PRN cholecalciferol 5,000 Units tab(s) (VITAMIN D3) 5,000 Units ORAL DAILY heparin iv infusion 25,000 units in NaCl 0.45% 250 mL LOW DOSE/ACS NOMOGRAM 0-3,000 Units/hr INTRAVENOUS CONTINUOUS And heparin RATE CHANGE bolus 1,000-4,000 Units for subtherapeutic PTTAC results 1,000-4,000 Units INTRAVENOUS PRN Labs: Glucose control: CBC: Recent Labs 04/27/252604/26/25211504/26/25 14004/25/25 0751 04/24/25 0645 04/23/25 1237 04/22/25 1044 04/22/25 0134 04/21/25 0341 04/20/25 1822 WBC 5.86 6.68 6.07 6.22 7.98 9.99 10.90 11.73* < > 13.20* HB 9.4* 8.4* 8.8* 8.0* 8.4* 8.2* 6.9* 7.7* < > 9.5* HCT 31.8* 27.1* 29.9* 26.1* 28.1* 26.4* 23.6* 25.3* < > 31.3* PLT 354 325 314 281 301 323 297 307 < > 373 MCV 92.7 90.6 92.3 90.9 92.7 91.0 91.5 88.5 < > 92.3 RDWCV 19.3* 19.0* 19.6* 19.4* 19.3* 19.6* 20.9* 20.6* < > 20.6* NEUTP -- -- -- -- -- -- -- -- -- 69.5 ABSNEUT -- -- -- -- -- -- -- -- -- 9.18* LYMPHP -- -- -- -- -- -- -- -- -- 15.2 MONOP -- -- -- -- -- -- -- -- -- 12.6 EODINP -- -- -- -- -- -- -- -- -- 1.3 < > = values in this interval not displayed. COAG: Recent Labs 04/27/252704/26/25211404/26/25140004/25/25 1033 04/24/25 1716 04/22/25 0135 04/21/25 1108 04/21/25 0341 04/20/25 1822 APTT 43.0* 41.2* -- 75.7* -- -- 62.7* -- 43.3* INR 1.7* 1.7* 1.9* 5.3* 5.4* 3.9* 5.1* 4.3* 3.3* BMP: Recent Labs 04/27/25 0028 04/26/25 1401 04/25/25 0800 04/24/25 0645 04/23/25 1237 04/22/25 0136 04/21/25 1108 04/21/25 0341 GLUC 72* 72* 68* 79 94 96 85 92 NA 136 137 135* 133* 136 139 137 135* K 4.6 4.7 4.8 4.6 4.3 4.5 4.4 4.5 CHLOR 94* 95* 95* 94* 94* 99 95* 95* CO2 18* 15* ANION 20* 16* 17* 16* 17* 15 24* 25* BUN 24 20 26* 14 29* 17 54* 52* CREAT 6.69* 5.73* 7.04* 4.83* 7.96* 5.68* 12.66* 12.27* CHEM: Recent Labs 04/27/25 00204/26/25 1401 04/25/25 0804/24/25 0645 04/23/25123604/22/2513504/21/25110704/21/2534004/20/25 1822 ALB 3.6* 3.3* 3.1* 3.1* 3.1* 3.1* 3.1* 3.3* 3.4* TPROT -- -- -- -- -- -- 7.7 8.6* 8.9* CA 8.2* 8.2* 7.8* 8.7 8.3* 9.4 9.4 9.8 9.7 MG -- -- -- -- -- -- 2.3 2.5* 2.5* HEPATIC: Recent Labs 04/21/25 1108 04/21/2534004/20/25 1822 ALKPHOS 151* 167* 178* ALT 9* 10 10 AST 16 22 17 TBILI 0.4 0.4 0.4 URINALYSIS:No results for input(s): PH, SPGR, UGLUC, UBILI, UKET, UHB, UPROT, UROBIL, UWBC, SSA in the last 168 hours. Invalid input(s): NITR CARDIAC: No results for input(s): CKTEST, CKMB, CKMBP, TROPT, PBNP in the last 168 hours. MICROBIOLOGY: Positive Micro-30 Days No results found for the last 720 hours. Imaging: CXR 04/21/25: TDC with tip in RA. Increase of perihilar and basilar opacities with volume loss, suggesting atelectasis, possible underlying edema/inflammation. Blunting of L CP angle, which may represent tiny effusion or pleural thickening. CT A/P 04/22/25: No abdominal or pelvic subcutaneous fluid collection of gas. Redemonstrated diffuse subcutaneous extensive abdominal wall collaterals, similar to prior CTA 10/17/2024. CT chest 04/22/25: extensive chest wall collaterals, few areas of skin ulceration, no areas of drainable fluid collection. Findings consistent with central venous stenoses. Few patchy groundglass opacities, may be related to mild pulm edema Assessment AND Plan: Elia Weston is a 45 year old male with extensive PMH, significant for ESRD on HD (MWF) last session 04/18 (skipped Friday since he came to ED), CAD s/p CABG, severe MS s/p MVR on Warfarin, pAfib s/p maze procedure and RADHA clip and chronic chest/abdominal/back wounds (3 years) likely secondary to ischemia in context of SVC syndrome and multiple thrombosis, who presented to the ED with 1-day of left chronic chest wound bleeding. Admitted for management of bleeding, and on transfer to [facility], patient began to have significant bleeding from R chest wound. Continuous pressure was applied and bleeding stopped. Now s/p FFP and RBC transfusions as appropriate. Initially started on Vanc/Zosyn given elevated ESR/CRP, no infectious concern on further imaging with improved lactate WBC, so abx were stopped. Dermatology and wound care consulted. IR consulted, planning for venoplasty pending INR improvement. 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 Hx of hemorrhagic shock from bleeding abdominal wounds - presenting with acute worsening of pain and bleeding from wounds. Denies purulent discharge from wounds . - Leukocytosis + Elevated CRP 22.1 and ESR 133 + Elevated lactate on presentation; concerned for infected wounds/soft tissue infection. Started on IV vanc/zosyn, later d/janie due to low infectious concern (04/21-04/25) - On admission, acute rise in lactate in light of acute significant bleeding and drop in HGB (8.6 from 9.5 in ED) likely secondary to hypovolemia, also missed dialysis - CT venogram on 10/19/24 with b/l brachiocephalic stenosis w b/l subclavian vein occlusion, extensive venous collaterals - 10/22/24: Venoplasty completed by IR, removed L femoral TDC, exchanged R TDC - blood cultures 04/20/25 with NG5D x2 - AMET for hypotension 80/50, s/p 500 cc LR bolus, scheduled midodrine with improved repeat 102/63 - lactate 2.4 from 1.7, improved from 3.2 at admission. Completed 5d course of IV vanc/zosyn (04/21-04/25) - CT chest and CT A/P 04/22/25 with no drainable fluid collections, extensive chest collaterals - nutritional workup: B12 elevated, folate wnl, iron low 26, TIBC low 137, trans sat wnl, low vit D 22.9, zinc 69 wnl PLAN: - IR consulted: > venoplasty initially planned for 04/25/2025, ok to do procedure with therapeutic INR 2.5-3.5. now with improving INR, will re-engage to schedule procedure - Derm consulted: > pending Nutritional workup (vit A, B6, C, essential fatty acids) > will start clobetasol 0.05% ointment BID for wound edge, to simulate tx of PG and assess response - continue vitamin D supplement 5000 u - wound care team consulted, appreciate care - will consider plastic surgery consult after venoplasty - pain control: tylenol 650 mg q6h prn and oxycodone 10 mg po q6h PRN - Cautious fluid resuscitation in light of acute bleeding and ESRD anuric on HD #Supratherapeutic INR #CAD s/p CABG #Severe MS s/p mechanical MVR on coumadin #Paroxysmal Afib s/p multiple DCCV s/p Maze procedure + RADHA clip (07/2021) - atrial fibrillation and severe mitral stenosis s/p mechanical mitral valve replacement with On-x valve (INR goal 2.5-3.5), Maze procedure and RADHA clip on 08/21/2021. - Goal INR 2.5- 3.5; on warfarin 2.5 mg daily although patient not sure of dose, has been changed recently; last dose of warfarin Thursday 04/19 - INR elevated to 5.1 on admission, improved to 3.9 s/p 2u FFP 04/21 - possible etiology of supratherapeutic INR: warfarin dose (given patient not sure of home dose) vs malnutrition vs liver disease (less likely given AST/ALT wnl) - INR elevated again to 5.3, patient received po vitamin K 5 mg 04/25. Improved to 1.7 PLAN: - continue holding warfarin - now with INR reversal, start bridging with heparin gtt given subtherapeutic - Daily INR #ESRD on HD via Right TDC #Chronic Hypotension #Secondary Hyperparathyroidism - iHD at [facility] through R. Tunneled HD catheter MWF - Last dialysis session Friday04/18/2025; missed Fri session because he presented to [facility] ED - anuric at baseline per patient - Serum P=9.7 - completed HD 04/21, last HD session 04/25 PLAN: - nephrology consulted: > Resume MWF HD schedule - Continue Sensipar, renvela with meals - continue home Midodrine 20mg daily #Anemia of Chronic Disease/ESRD - Baseline hemoglobin 9-11 - iron studies 12/2024: iron 33, TIBC 156, Iron sat 21, ferritin 1327 - Hgb dropping iso bleeding wounds, as above. - received 1u pRBC 04/21, Hgb from 7.3 -> 7.7 post-transfusion - Hgb 6.9 on 04/22, s/p additional 2u pRBC with Hgb in ~8s PLAN: - Hgb goal >8 - chronic wound mgmt, as above #Code status - Full # Diet - renal # VTE PPx - heparin gtt # Dispo Planning - Pending clinical course, SW consulted for recent unemployment, c/f food insecurity These recommendations and plan are not final until co-signed by the attending physician Marylin Raymond MD. Parker Moe MD PGY-1 04/27/2025 5:08 AM PT PNL PPP Collected: 12:28 AM Status: F Source: [facility] Order Comment: Specimen Type : BLOOD SPECIMEN Ordering Facility: [facility] Address: [address] [place] [address] TYPE CODE TESTS RESULT OUT OF RANGE REFERENCE UNITS LAB 5902-2(LOINC) Prothrombin time 17.5 High 9.7-13.0 sec LAB 6301-6(LOINC) INR PPP 1.7 High 0.9-1.3 Result Comment: Vitamin K An tagonist (VKA) Therapeutic Range: INR 2 to 3 (Target INR of 2.5) Note: For patients treated with VKA drugs, such as warfarin, the [place] College [employer] Chest [employer]icians 2012 Guideline recommends a therapeutic INR range of 2 to 3 (target INR of 2.5). This recommendation includes high-risk patients with antiphospholipid syndrome with previous arterial or venous thromboembolism, current-generation mechanical or bioprosthetic aortic heart valve replacement. Note: Patients with mechanical aortic valve replacement and additional risk factors for thromboembolic events (atrial fibrillation, previous thromboembolism, LV dysfunction, hypercoagulable conditions) or an older generation mechanical AVR (i.e., ball in-Cage) or any mechanical MVR should have a INR therapeutic range of 2.5 to 3.5 (target INR of 3). Ranjit GH, et al. Chest 2012, 141:7S-47S Kevin RA, et al. JACC 2017, 70: 252-289 Performed By: #### 09561-7, PTTAC #### [facility] CLIA [id number] [address] [place] [address] [place] PTT, ANTICOAGULANT THERAPY Collected: 0 04/27/2025 12:28 AM Status: F Source: [facility] Order Comment: Specimen Type : BLOOD SPECIMEN Ordering Facility: [facility] Address: [address] [place] [address] TYPE CODE TESTS RESULT OUT OF RANGE REFERENCE UNITS LAB 12222-3(LOINC) aPTT PPP 43.0 High 23.0-32.4 sec Performed By: #### 17947-0, PTTAC #### [facility] CLIA [id number] [address] [place] [address] [place] [id number] [facility] 2000 PNL SERPL Collected: 12:28 AM Status: F Source: [facility] Order Comment: Specimen Type : BLOOD SPECIMEN Ordering Facility: [facility] Address: [address] [place] [address] TYPE CODE TESTS RESULT OUT OF RANGE REFERENCE UNITS LAB 1751-7(LOINC) Albumin SerPl-mCnc 3.6 Low 3.9-4.9 g/dL LAB 57965-7(LOINC) Calcium SerPl-mCnc 8.2 Low 8.5-10.2 mg/dL LAB 2777-1(LOINC) Phosphate SerPl-mCnc 4.8 2.7-4.8 mg/dL LAB 2345-7(LOINC) Glucose SerPl-mCnc 72 Low 74-99 mg/dL Result Comment: The [place] Diabetes Association (ADA) provides guidance for cutoff values for fasting glucose and random glucose. The ADA defines fasting as no caloric intake for at least 8 hours. Fasting plasma glucose results between 100 to 125 mg/dL indicate increased risk for diabetes (prediabetes). Fasting plasma glucose results greater than or equal to 126 mg/dL meet the criteria for diagnosis of diabetes. In the absence of unequivocal hyperglycemia, results should be confirmed by repeat testing. In a patient with classic symptoms of hyperglycemia or hyperglycemic crisis, random plasma glucose results greater than or equal to 200 mg/dL meet the criteria for diagnosis of diabetes. Reference: Standards of Medical Care in Diabetes 2016, [place] Diabetes Association. Diabetes Care. 2016.39(Suppl 1). LAB 3094-0(LOINC) BUN SerPl-mCnc 24 9-24 mg/dL LAB 2160-0(LOINC) Creat SerPl-mCnc 6.69 High 0.73-1.22 mg/dL LAB 2951-2(LOINC) Sodium SerPl-sCnc 136 136-144 mmol/L LAB 2823-3(LOINC) Potassium SerPl-sCnc 4.6 3.7-5.1 mmol/L LAB 2075-0(LOINC) Chloride SerPl-sCnc 94 Low 98-107 mmol/L LAB 2028-9(LOINC) CO2 SerPl-sCnc 22 22-30 mmol/L LAB 80734-5(LOINC) Anion Gap SerPl-sCnc 20 High 8-15 mmol/L LAB 53892-1(LOINC) eGFRcr SerPlBld CKD-EPI 2020 10 Low >=60 mL/min/1. 73m??? Result Comment: Estimated Gl omerular Filtration Rate (eGFR) is calculated using the 2020 CKD-EPI creatinine equation. This equation utilizes serum creatinine, sex, and age as parameters. The creatinine assay has traceable calibration to isotope dilution-mass spectrometry. Refer to KDIGO guidelines for clinical interpretation. In patients with unstable renal function, e.g. those with acute kidney injury, the eGFR may not accurately reflect actual GFR. Performed By: #### 09741-1 # ### [facility] CLIA [id number] [address] [place] [address] [place] [facility] CBC PNL BLD AUTO Collected: 5 12:27 AM Status: F Source: [facility] Order Comment: Specimen Type : BLOOD SPECIMEN Ordering Facility: [facility] Address: [address] [place] [address] TYPE CODE TESTS RESULT OUT OF RANGE REFERENCE UNITS LAB 6690-2(LOINC) WBC # Bld Auto 5.86 3.70-11.00 k/uL LAB 789-8(LOINC) RBC # Bld Auto 3.43 Low 4.20-6.00 m/uL LAB 718-7(LOINC) Hgb Bld-mCnc 9.4 Low 13.0-17.0 g/dL LAB 4544-3(LOINC) Hct VFr Bld Auto 31.8 Low 39.0-51.0 % LAB 787-2(LOINC) MCV RBC Auto 92.7 80.0-100.0 fL LAB 785-6([facility]) MCH RBC Qn Auto 27.4 26.0-34.0 pg LAB 786-4([facility]) MCHC RBC Auto-mCnc 29.6 Low 30.5-36.0 g/dL LAB 24382-2([facility]) RDW RBC-Rto 19.3 High 11.5-15.0 % LAB 777-3([facility]) Platelet # Bld Auto 354 150-400 k/uL LAB 06661-9([facility]) PMV Bld Auto 10.5 9.0-12.7 fL LAB 771-6([facility]) nRBC # Bld Auto <0.01 <0.01 k/uL Performed By: #### 66652-1, 273-8 #### [facility] CLIA [id number] [address] [place] [address] [place] PTH-INTACT SERPL-MCNC Collected: 2024 12:27 AM Status: F Source: [facility] Order Comment: Specimen Type : BLOOD SPECIMEN Ordering Facility: [facility] Address: [address] [place] [address] TYPE CODE TESTS RESULT OUT OF RANGE REFERENCE UNITS LAB 2731-8([facility]) PTH-Intact SerPl-mCnc 578 High 15-65 pg/mL Performed By: #### 32761-2, 2730-8 #### [facility] CLIA [id number] [address] [place] [address] [place] FATTY ACIDS PROFILE, ESSENTIAL Collected: 04/27/2025 12:27 AM Status: F Source: [facility] Order Comment: Specimen Type : BLOOD SPECIMEN Ordering Facility: [facility] Address: [address] [place] [address] TYPE CODE TESTS RESULT OUT OF RANGE REFERENCE UNITS LAB CFAINT INTERPRETATION, FATTY ACID PROFILE View results in Scanned Documents link when available. LAB ARAC ARACHIDIC ACID, C20 0 View results in Scanned Documents link when available. LAB ARADO ARACHIDONIC ACID , C20 4W6 View results in Scanned Documents link when available. LAB DHA DHA, C22 6W3 View results in Scanned Documents link when available. LAB [id number] DPA, C22 5W3 View results in Scanned Documents link when available. LAB [id number] DPA, C22 5W6 View results in Scanned Documents link when available. LAB DTA DTA, C22 4W6 View results in Scanned Documents link when available. LAB DOCOS DOCOSENOIC ACID, C22 1 View results in Scanned Documents link when available. LAB EPA EPA, C20 5W3 View results in Scanned Documents link when available. LAB HEXAD HEXADECENOIC ACI D, C16 1W9 View results in Scanned Documents link when available. LAB LAURIC LAURIC ACID, C12 0 View resu lts in Scanned Documents link when available. LAB LINOL LINOLEIC ACID, C 18 2W6 View results in Scanned Documents link when available. LAB LINOL3 A-LINOLENIC ACID , C18 3W3 View results in Scanned Documents link when available. LAB LINOHG V-V-IPNKWRDNS C20:3W6 View results in Scanned Documents link when available. LAB LINOL6 G-LINOLENIC ACID , C18 3W6 View results in Scanned Documents link when available. LAB MEAD MEAD ACID, C20 3W9 View resu lts in Scanned Documents link when available. LAB MYRIS MYRISTIC ACID, C 14 0 View results in Scanned Documents link when available. LAB NERV NERVONIC ACID, C 24 1W9 View results in Scanned Documents link when available. LAB OLEIC OLEIC ACID, C18 1W9 View res ults in Scanned Documents link when available. LAB PALMI PALMITIC ACID, C 16 0 View results in Scanned Documents link when available. LAB PALMO PALMITOLEIC ACID , C16 1W7 View results in Scanned Documents link when available. LAB STEARI STEARIC ACID, C18 0 View res ults in Scanned Documents link when available. LAB VACCEN VACCENIC ACID, C 18 1W7 View results in Scanned Documents link when available. LAB TTRATO TRIENE/TETRAENE RATIO View results in Scanned Documents link when available. LAB TSAT TOTAL SATURATED ACIDS View results in Scanned Documents link when available. LAB TMONO TOTAL MONOUNSATURATED ACIDS View results in Scanned Documents link when available. LAB TPOLY TOTAL POLYUNSATURATED ACIDS View results in Scanned Documents link when available. LAB TW3 TOTAL W3 View results in Scanned Documents link when available. LAB TW6 TOTAL W6 View results in Scanned Documents link when available. LAB TFATTY TOTAL FATTY ACIDS View resul ts in Scanned Documents link when available. LAB FATTYA EER FATTY ACIDS PROF, ESSENTIAL SP View results in Scanned Documents link when available. Performed By: #### CFAPRO ## ## [facility] CLIA [id number] [address] [place] [address] CBC PNL BLD AUTO Collected: 9:16 PM Status: F Source: [facility] Order Comment: Specimen Type : BLOOD SPECIMEN Ordering Facility: [facility] Address: [address] [place] [address] TYPE CODE TESTS RESULT OUT OF RANGE REFERENCE UNITS LAB 6690-2(LOINC) WBC # Bld Auto 6.68 3.70-11.00 k/uL LAB 789-8(LOINC) RBC # Bld Auto 2.99 Low 4.20-6.00 m/uL LAB 718-7(LOINC) Hgb Bld-mCnc 8.4 Low 13.0-17.0 g/dL LAB 4544-3(LOINC) Hct VFr Bld Auto 27.1 Low 39.0-51.0 % LAB 787-2(LOINC) MCV RBC Auto 90.6 80.0-100.0 fL LAB 785-6(LOINC) MCH RBC Qn Auto 28.1 26.0-34.0 pg LAB 786-4(LOINC) MCHC RBC Auto-mCnc 31.0 30.5-36.0 g/dL LAB 08480-4(LOINC) RDW RBC-Rto 19.0 High 11.5-15.0 % LAB 777-3(LOINC) Platelet # Bld Auto 325 150-400 k/uL LAB 54228-8(LOINC) PMV Bld Auto 10.3 9.0-12.7 fL LAB 771-6(LOINC) nRBC # Bld Auto <0.01 <0.01 k/uL Performed By: #### 20466-5 # ### [facility] CLIA [id number] [address] [place] [address] [place] [address] [place] PT PNL PPP Collected: 04/26/2025 9:15 PM Status: F Source: [facility] Order Comment: Specimen Type : BLOOD SPECIMEN Ordering Facility: [facility] Address: [address] [place], [place] [id number] TYPE CODE TESTS RESULT OUT OF RANGE REFERENCE UNITS LAB 5902-2(LOINC) Prothrombin time 17.6 High 9.7-13.0 sec LAB 6301-6(LOINC) INR PPP 1.7 High 0.9-1.3 Result Comment: Vitamin K An tagonist (VKA) Therapeutic Range: INR 2 to 3 (Target INR of 2.5) Note: For patients treated with VKA drugs, such as warfarin, the [place] [employer] 2012 Guideline recommends a therapeutic INR range of 2 to 3 (target INR of 2.5). This recommendation includes high-risk patients with antiphospholipid syndrome with previous arterial or venous thromboembolism, current-generation mechanical or bioprosthetic aortic heart valve replacement. Note: Patients with mechanical aortic valve replacement and additional risk factors for thromboembolic events (atrial fibrillation, previous thromboembolism, LV dysfunction, hypercoagulable conditions) or an older generation mechanical AVR (i.e., ball in-Cage) or any mechanical MVR should have a INR therapeutic range of 2.5 to 3.5 (target INR of 3). Ranjit GH, et al. Chest 2012, 141:7S-47S Kevin RA, et al. JAC 2017, 70: 252-289 Performed By: #### 08956-6, 52895-4 #### [facility] CLIA [id number] [address] [place] [address] [place] APTT PPP Collected: 9:15 PM Status: F Source: [facility] Order Comment: Specimen Type : BLOOD SPECIMEN Ordering Facility: [facility] Address: [address] [place] [address] TYPE CODE TESTS RESULT OUT OF RANGE REFERENCE UNITS LAB 39208-7(INC) aPTT PPP 41.2 High 23.0-32.4 sec Performed By: #### 67830-1, 31449-8 #### [facility] CLIA [id number] [address] [place] [address] [place] NURSING PROG Observed: 04/26/2025 6:36 PM Status: COMPLETED Source: [facility] HNO ID: [id number] Author: AILEEN WALSH RN Service: Nursing Author Type: Registered Nurse Type: Nursing Progress Note Filed: 04/26/2025 18:40 Note Text: This RN notified primary team twice about unsuccessful attempt at drawing 1615 PTT and CBC. Pt. Is extremely hard stick, 3 nurses tried with no success. Phlebotomy not available at the moment, their team had same issue this morning and had to send a backup mobile home laborer. MD Dayan Kc notified at 1729 and Jeffrey christianson notified at 1839. NURSING PROG Observed: 04/26/2025 6:33 PM Status: COMPLETED Source: [facility] HNO ID: [id number] Author: AILEEN WALSH RN Service: Nursing Author Type: Registered Nurse Type: Nursing Progress Note Filed: 04/26/2025 18:36 Note Text: This RN attempted to change pt's dressings per WC orders several times today: during morning med pass, afternoon once he finished lunch, and once more when beginning heparin drip. Pt. Continuously refused and kept asking for nurse to return later. This RN then came back near end of shift at 1830 to offer again, to which pt. Declined because he wants to take a nap because we poked him so many times for blood today. RN educated and reiterated importance of adhering to dressing changes, to which pt. Responded he would like them changed tonight before he goes to bed. Relayed to oncoming shift nurse. CONSULT PROG Observed: 04/26/2025 4:45 PM Status: COMPLETED Source: [facility] HNO ID: [id number] Author: BHAKTI KIRBY MD Service: Dermatology Author Type: Resident Type: Consult Progress Note Filed: 04/27/2025 08:55 Note Text: Attestation with edits by Bhakti Kirby MD at 04/27/2025 8:55 AM #skin ulcers Medical Complexity: undiagnosed new problem with uncertain prognosis I was physically present during the critical/mendoza portions of this encounter and during all procedures, and agree with the above evaluation, assessment, and treatment plan. I reviewed the patient's chart and discussed care with the patient and the other physicians involved. Bhakti Kirby MD DERMATOLOGY HOSPITAL CONSULT SERVICE PROGRESS NOTE Interval Events - having lots of pain with dressing changes - Still declines biopsy PHYSICAL EXAM BP 87/50 Pulse 74 Temp 36.7 ?C (98.1 ?F) (Oral) Resp 17 Wt 115.6 kg (254 lb 13.6 oz) SpO2 95% BMI 36.90 kg/m? GEN: Age appropriate Patient declines physical examination given pain with dressing changes/location in HD. Reviewed photos in chart from 04/22/2025: - L chest with deep ulcer with granulation tissue at the periphery and hemorrhagic crust at the center. Worsening compared to photo from 12/04/24. - R chest with ulceration deeper than photo 09/06/24 - Back with scattered ulcerations with granulation tissue at base and hyperpigmented periphery. Hypopigmented scars with hyperpigmented periphery. Enlarged compared to photos from November 2024 and August 2024. - Abdomen with scattered ulcerations with granulation tissue at base and hyperpigmented periphery. Hypopigmented scars with hyperpigmented periphery. Improving compared to photos from August 2024. LABORATORY TESTS: DATA: IMAGING: No pertinent imaging LABS: - CBC without leukocytosis as of 04/25 - Elevated phos elevated to 5.5 - total Ca low 7.8 - CRP elevated 22.1 - ESR elevated 133 - Blood cultures (04/20) - NGTD Vit B 12 >2,000 (high) Folate WNL Vit D 22.9 (low) Iron 26, TIBC 137, Tsat WNL B6, C, Zinc, A pending BIOPSY: Punch biopsy 10/15/24 FINAL DIAGNOSIS A. Skin, chest, punch biopsy: - Dermal fibrosis and reactive vascular proliferation, see comment. APF/dkm 10/18/2024 at 1513 EST Diagnosis Comment Histologic sections display a basket-weave to compact orthokeratotic stratum corneum with focal parakeratosis overlying a markedly acanthotic and mildly spongiotic epidermis. Within the dermis, there is a superficial and deep interstitial vascular and histiocytic proliferation with collagen fibrosis and elastic fiber disarray. There is a scant perivascular mixed infiltrate including lymphocytes, histiocytes, and neutrophils. Eosinophils are not readily identified. To further evaluate this specimen, immunohistochemical and special stains were performed and compared to appropriate controls. Gram, GMS, and AFB-Christiana stains are negative for evidence of infectious organisms. A Von Kossa stain is negative for evidence of intraluminal or dermal calcium deposition. In order to further evaluate the vascular proliferation, immunohistochemical staining is performed at the [facility] on block A1 with appropriate controls. Stains for CD31 and ERG highlight the vascular endothelial cells, showing that they are mostly small and thin-walled without significant nuclear enlargement or multilayering. The clinical history and photographs are reviewed. Overall, these features are those of dermal fibrosis and a reactive vascular proliferation. These findings could be consistent with reactive ischemic changes in the correct clinical context. Features of pyoderma gangrenosum calciphylaxis are not identified, although the subcutaneous adipose tissue is minimally sampled. Clinical correlation remains essential. 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 On admission, patient had leukocytosis with elevated CRP/ESR and elevated lactate. Patient is on IV antibiotics. Currently patient is afebrile and leukocytosis has resolved. No clinical signs of infection at this time. Punch biopsy 06/26/23 revealed ulcer with dermal fibrosis, vascular ectasia, and reactive vascular proliferation - overall nonspecific findings but could be related to chronic ischemia given patient's history and clinical morphology. Punch biopsy 10/15/24 showing dermal fibrosis and a reactive vascular proliferation which is most consistent with reactive ischemic changes in the correct clinical context. Features of pyoderma gangrenosum, calciphylaxis not identified. Tissue cultures no growth on bacterial culture and NGTD on fungal/AFB. Patient denies the presence of a preceding papule or pustule that progresses to ulceration quickly. He endorses the lesions start as hyperpigmentation and skin tears. Denies painful indurated plaques in areas of ulceration prior to onset. Clinically, initial presentation is not consistent with calciphylaxis or pyoderma gangrenosum, prior biopsy is supportive of ischemic vasculopathy as likely trigger for non-healing ulcers. Pt remains afebrile without leukocytosis, low concern for infection. He reports improvement in prior wounds. Continue to favor that wounds are related to reactive ischemic changes given patient's co-morbidities (ESRD, HTN, vasculopathy). Given persistent, non-healing wounds, recommend nutritional workup given patient's diet is limited, following labs as they return. Discussed option to repeat biopsy with patient on 04/25 and he declined given that he has had numerous biopsies in the past. Pt feels that when he has received systemic steroids in the past it improved the pain and appearance of his wounds. Given that infectious work up of his wounds has been negative to date, would consider a trial of a topical steroid to a smaller wound to simulate treatment of PG to assess its response. Discussed this plan with pt today and he was hesitant but agreed that he would take a look at the topical and I will discuss it again with him tomorrow and aid in the first application. PLAN: (Not final until signed by staff physician) - await remainder of nutritional workup for poorly healing wounds, supplementation as appropriate - Agree with wound care recommendations per WOC team - please order clobetasol 0.05% ointment to be applied to wound edge twice daily - I will discuss with the patient which wound we are going to treat based on his preference - defer pain control to primary team but would consider pre-medication for wound dressing changes as he is reporting significant pain with these Patient seen and discussed with attending printed circuit board assembler, Dr. Gregory Beltran MD Dermatology PGY-3 04/26/2025 4:48 PM Please use consult pager [phone], Mon-Fri 8am-5pm. Please call adzing and boring machine operator for on-call resident/pager during all other hours. CASE MANAGEM Observed: 04/26/2025 3:44 PM Status: COMPLETED Source: [facility] HNO ID: [id number] Author: VICENTA TORRES LSW Service: Care Management Author Type: Ppa Teacher Type: Care Mgt Progress Note Filed: 04/26/2025 15:59 Note Text: CARE MANAGEMENT PROGRESS NOTE SERVICE DATE: 04/26/2025 SERVICE TIME: 3:44 PM LOS: 5 days DISCHARGE PLAN Discharge plan discussed with: Pt's outpatient dialysis center nurse and SW Anticipated Discharge Plan: Home with self care Anticipated Discharge Date: TBD Phone call received from pt's outpatient dialysis center nurse for an update on pt's anticipated dc. CM asked if the nurse had any concerns regarding pt at dialysis. She transferred me to their SW, Ellie. Ellie shared that she has noticed a steady decline in pt's overall condition. I asked if she could assist pt with local resources for food due to recent job loss. She reports that pt has not worked in over a year. He is and they have 2 adopted young children (one is 3 yrs old). She reports pt is active in his congregation and receives a lot of support from them. She has assisted in the past with letters to stop disconnection of utilities and will assist with any other help he may need. Attempted to speak with pt. He was unavailable due to another service with him. CM will see pt in AM. SIGNATURE: CANDY Flores PATIENT NAME: Elia Weston DATE: April 26, 2025 TIME: 3:44 PM CBC PNL BLD AUTO Collected: 2:01 PM Status: F Source: [facility] Order Comment: Specimen Type : BLOOD SPECIMEN Ordering Facility: [facility] Address: [address] [place] [address] TYPE CODE TESTS RESULT OUT OF RANGE REFERENCE UNITS LAB 6690-2(LOINC) WBC # Bld Auto 6.07 3.70-11.00 k/uL LAB 789-8(LOINC) RBC # Bld Auto 3.24 Low 4.20-6.00 m/uL LAB 718-7(LOINC) Hgb Bld-mCnc 8.8 Low 13.0-17.0 g/dL LAB 4544-3(LOINC) Hct VFr Bld Auto 29.9 Low 39.0-51.0 % LAB 787-2(LOINC) MCV RBC Auto 92.3 80.0-100.0 fL LAB 785-6(LOINC) MCH RBC Qn Auto 27.2 26.0-34.0 pg LAB 786-4(LOINC) MCHC RBC Auto-mCnc 29.4 Low 30.5-36.0 g/dL LAB 61644-6(LOINC) RDW RBC-Rto 19.6 High 11.5-15.0 % LAB 777-3(LOINC) Platelet # Bld Auto 314 150-400 k/uL LAB 21911-5(LOINC) PMV Bld Auto 10.2 9.0-12.7 fL LAB 771-6(LOINC) nRBC # Bld Auto <0.01 <0.01 k/uL Performed By: #### 14526-9 # ### [facility] CLIA [id number] [address] [place] [address] OF [facility] VITAMIN C Collected: 5 2:01 PM Status: F Source: [facility] Order Comment: Specimen Type : BLOOD SPECIMEN Ordering Facility: [facility] Address: [address] [place] [address] TYPE CODE TESTS RESULT OUT OF RANGE REFERENCE UNITS LAB VITC VITAMIN C <5 Low 23-114 umol/L Result Comment: Vitamin C co ncentrations lower than 11 umol/L indicate deficiency. Concentrations between 11 and 23 umol/L are consistent with a moderate risk of deficiency due to inadequate tissue stores. Vitamin C concentration is reported as micromoles per liter (umol/L). To convert concentration to milligrams per deciliter (mg/dL), multiply the result by 0.0176. This test was developed and its performance characteristics determined by [facility]. It has not been cleared or approved by the [place] Food and Drug Administration. This test was performed in a CLIA certified laboratory and is intended for clinical purposes. Performed By: [facility] [address] [place] [address] Materials Research Engineer: Nancy Brian MD, PhD CLIA Number: [id number] Performed By: #### VITC #### [facility] CLIA [id number] [address] [place] [address] VITAMIN B6/PYRIDOXIN Collected: 2:01 PM Status: F Source: [facility] Comment: Specimen Type : BLOOD SPECIMEN Ordering Facility: [facility] Address: [address] [place], [place] [address] TYPE CODE TESTS RESULT OUT OF RANGE REFERENCE UNITS LAB VITB6 VITAMIN B6 8.1 Low 20.0-125.0 nmol/L Result Comment: INTERPRETIVE INFORMATION: Vitamin B6 (Pyridoxal 5-Phosphate) Pyridoxal 5'-phosphate measured in a specimen collected following an 8-hour or overnight fast accurately indicates vitamin B6 nutritional status. Non-fasting specimen concentration reflects recent vitamin intake. This test was developed and its performance characteristics determined by [facility]. It has not been cleared or approved by the [place] Food and Drug Administration. This test was performed in a CLIA certified laboratory and is intended for clinical purposes. Performed By: [facility] [address] [place] [address] Materials Research Engineer: Nancy Brian MD, PhD CLIA Number: [id number] Performed By: #### VITB6 ### # [facility] CLIA [id number] [address] [place] [address] RENAL FUNC 2000 PNL SERPL Collected: 2:01 PM Status: F Source: [facility] Comment: Specimen Type : BLOOD SPECIMEN Ordering Facility: [facility] Address: [address] [place] [address] TYPE CODE TESTS RESULT OUT OF RANGE REFERENCE UNITS LAB 1751-7(LOINC) Albumin SerPl-mCnc 3.3 Low 3.9-4.9 g/dL LAB 23132-6(LOINC) Calcium SerPl-mCnc 8.2 Low 8.5-10.2 mg/dL LAB 2777-1(LOINC) Phosphate SerPl-mCnc 4.5 2.7-4.8 mg/dL LAB 2345-7(LOINC) Glucose SerPl-mCnc 72 Low 74-99 mg/dL Result Comment: The [place] Diabetes Association (ADA) provides guidance for cutoff values for fasting glucose and random glucose. The ADA defines fasting as no caloric intake for at least 8 hours. Fasting plasma glucose results between 100 to 125 mg/dL indicate increased risk for diabetes (prediabetes). Fasting plasma glucose results greater than or equal to 126 mg/dL meet the criteria for diagnosis of diabetes. In the absence of unequivocal hyperglycemia, results should be confirmed by repeat testing. In a patient with classic symptoms of hyperglycemia or hyperglycemic crisis, random plasma glucose results greater than or equal to 200 mg/dL meet the criteria for diagnosis of diabetes. Reference: Standards of Medical Care in Diabetes 2016, [place] Diabetes Association. Diabetes Care. 2016.39(Suppl 1). LAB 3094-0(LOINC) BUN SerPl-mCnc 20 9-24 mg/dL LAB 2160-0(LOINC) Creat SerPl-mCnc 5.73 High 0.73-1.22 mg/dL LAB 2951-2(LOINC) Sodium SerPl-sCnc 137 136-144 mmol/L LAB 2823-3(LOINC) Potassium SerPl-sCnc 4.7 3.7-5.1 mmol/L LAB 2075-0(LOINC) Chloride SerPl-sCnc 95 Low 98-107 mmol/L LAB 202-9(LOINC) CO2 SerPl-sCnc 26 22-30 mmol/L LAB 74174-0(LOINC) Anion Gap SerPl-sCnc 16 High 8-15 mmol/L LAB 03606-5(LOINC) eGFRcr SerPlBld CKD-EPI 2020 12 Low >=60 mL/min/1. 73m??? Result Comment: Estimated Gl omerular Filtration Rate (eGFR) is calculated using the 2020 CKD-EPI creatinine equation. This equation utilizes serum creatinine, sex, and age as parameters. The creatinine assay has traceable calibration to isotope dilution-mass spectrometry. Refer to KDIGO guidelines for clinical interpretation. In patients with unstable renal function, e.g. those with acute kidney injury, the eGFR may not accurately reflect actual GFR. Performed By: #### 03797-4 # ### [facility] CLIA [id number] [address] [place] [address] [place] PT PNL PPP Collected: 04/26/2025 2:01 PM Status: F Source: [facility] Comment: Specimen Type : BLOOD SPECIMEN Ordering Facility: [facility] Address: [address] [place] [address] TYPE CODE TESTS RESULT OUT OF RANGE REFERENCE UNITS LAB 5902-2(LOINC) Prothrombin time 19.8 High 9.7-13.0 sec LAB 6301-6(LOINC) INR PPP 1.9 High 0.9-1.3 Result Comment: Vitamin K An tagonist (VKA) Therapeutic Range: INR 2 to 3 (Target INR of 2.5) Note: For patients treated with VKA drugs, such as warfarin, the [place] [employer]icians 2012 Guideline recommends a therapeutic INR range of 2 to 3 (target INR of 2.5). This recommendation includes high-risk patients with antiphospholipid syndrome with previous arterial or venous thromboembolism, current-generation mechanical or bioprosthetic aortic heart valve replacement. Note: Patients with mechanical aortic valve replacement and additional risk factors for thromboembolic events (atrial fibrillation, previous thromboembolism, LV dysfunction, hypercoagulable conditions) or an older generation mechanical AVR (i.e., ball in-Cage) or any mechanical MVR should have a INR therapeutic range of 2.5 to 3.5 (target INR of 3). Ranjit YOUSSEF, et al. Chest 2012, 141:7S-47S Kevin RA, et al. JACC 2017, 70: 252-289 Performed By: #### 06810-5 # ### [facility] CLIA [id number] [address] [place] [address] [place] PROGRESS Observed: 04/26/2025 5:10 AM Status: COMPLETED Source: [facility] ID: [id number] Author: MARYLIN RAYMOND MD Service: General Internal Medicine Author Type: Resident Type: Progress Notes Filed: 04/26/2025 14:45 Note Text: Attestation signed by Marylin [place] MD at 04/26/2025 2:45 PM [facility] STAFF PHYSICIAN NOTE OF PERSONAL INVOLVEMENT IN CARE I have reviewed the note obtained and documented and I personally participated in the mendoza components. I have discussed the case and management of the patient's care. I reviewed the medical record in detail. The following comments revise or confirm relevant mendoza components of their note. Agree with documented note. 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 Pending vit C and B6 Supplement vit D Dialysis MWF Seen by derm who will attempt topical steroid for wounds, as per derm recs Consult plastic-wound sg team for possible debridement of large ulcers on back SW consult for recent unemployment due to absence from illness and concern for food insecurity SIGNATURE: Marylin [place] MD, MPH Staff, Department of Hospital Medicine 04/26/2025 INPATIENT INTERNAL MEDICINE PROGRESS NOTE PATIENT NAME: Elia Weston ; AGE: 6 1980; 45 year old HOSPITAL ROOM: G090 [id number]/[id number] DATE OF SERVICE: 04/26/2025 ATTENDING PHYSICIAN: Marylin Raymond MD TIME OF SERVICE: AM Rounds SERVICE: Inpatient Medicine service Admit Date: 04/20/2025 Length of Stay: 5 Reason for Admission: Bleeding from wounds. Brief Summary Mr. 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 Patient was hospitalized in September 2024 to October 2024 for pain and bleeding from the wounds. Patient was seen by dermatology back then for his skin ulcers. Biopsy performed and was most c/w reactive ischemic changes without features of Pyoderma Gangrenosum or Calciphylaxis. Tissue culture that time didn't show growth. Interval Events/Subjective: - Yesterday, patient completed HD session, also received vitamin K 5 mg for elevated INR 5.3. IR recommends improvement in INR before he is able to get venoplasty. - No acute events overnight. This morning, patient endorses wound pain, manageable with current pain regimen. Denies bleeding from wounds, shortness of breath, chest pain, or abdominal pain. - Afebrile, SBP 100-120s, HR 65-93, R 16-18, SpO2 95-100% on RA. - required oxycodone 10 mg q6h x4 Objective: BP: 101/63 Temp: 36.8 ?C (98.2 ?F) Temp src: Oral Pulse: 88 Resp: 16 O2 Therapy: Room Air SpO2: 99 % Physical Exam GENERAL: Alert, no distress, cooperative SKIN: Patient declined examination of wounds. Previously seen: R and L anterior and posterior chest wounds - chronic, bleeding, no purulent discharge. Right flank/back chronic wounds. Images scanned in chart. LUNGS: Lungs clear to auscultation bilaterally, no wheezes or crackles. CARDIAC: Regular rate and rhythm. Normal S1 and S2; no rubs, murmurs, or gallops ABDOMEN: Distended, non-tender. EXTREMITIES: No LE edema NEURO: AxOx3, following commands and answering questions appropriately. Lines, Drains, and Airways Line Duration Dialysis / Apheresis Double Lumen External Facility Tunneled Right -- days Peripheral Left Forearm 20 Gauge -- days Active Hospital Problems Diagnosis Bleeding from open wound of chest wall, right, initial encounter Hypervolemia Difficult intravenous access Consult IR prior to removal of any catheters Bleeding from wound Open chest wound, right, sequela Unknown etiology Open chest wound, left, sequela Unknown etiology Back wound, unspecified laterality, sequela - Mid Back - Unknown Etiology - POA - Right Upper Back - Unknown Etiology - POA Open wound of abdomen Unknown Etiology Open wound of right thigh Unknown Etiology Wounds, multiple Anemia due to multiple mechanisms Hemorrhage from open wound of left chest wall Ulcers, venous (HCC) Status post Maze operation for atrial fibrillation 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 Acquired hypothyroidism Adjustment disorder with depressed mood Acute on chronic blood loss anemia Supratherapeutic INR S/P MVR (mitral valve replacement) History: MR Assessment: 08/21/2021: OnX + posterior mitral annulus patch with bovine pericardial + Left CryoMAZE + Left atrial appendage ligation Plan: ASA, start Coumadin 08/24, hep gtt History of non-ST elevation myocardial infarction (NSTEMI) ESRD on hemodialysis (HCC) Atrial fibrillation (HCC) on Coumadin and Amiodarone Secondary hyperparathyroidism, renal (HCC) Reportedly elevated PTH High PhxCa ratio in the past Now with worsening metastatic calcifications Will recheck Ca, PO4, Vitamin D, and PTH Continue phosphate binders If PTH elevated, ? Need to calcimemtics to suppress the PTH Will discuss further with the nephrology team MEDICATIONS Current Facility-Administered Medications Medication Dose Route Frequency NaCl 0.9% iv flush bag 20 mL INTRAVENOUS PRN acetaminophen 650 mg tab(s) (TYLENOL) 650 mg ORAL q 6 H PRN polyethylene glycol 3350 17 g packet 17 g ORAL DAILY PRN aspirin 81 mg chewable tab(s) 81 mg ORAL DAILY midodrine 20 mg tab(s) (PROAMATINE) 20 mg ORAL q 8 H cinacalcet 60 mg tab(s) (SENSIPAR) 60 mg ORAL DAILY iv contrast (radiology procedure) INTRAVENOUS DIRECTED PRN sevelamer carbonate 800 mg tab(s) (RENVELA) 800 mg ORAL TID w MEALS oxyCODONE IR 10 mg tab(s) (ROXICODONE) 10 mg ORAL q 6 H PRN Labs: Glucose control: CBC: Recent Labs 04/25/25 0751 04/24/25 0645 04/23/25 1237 04/22/25 1044 04/22/25 0134 04/21/25 1108 04/21/25 0341 04/20/25 1822 WBC 6.22 7.98 9.99 10.90 11.73* 14.79* 15.26* 13.20* HB 8.0* 8.4* 8.2* 6.9* 7.7* 7.3* 8.6* 9.5* HCT 26.1* 28.1* 26.4* 23.6* 25.3* 25.0* 28.4* 31.3* PLT 281 301 323 297 307 355 416* 373 MCV 90.9 92.7 91.0 91.5 88.5 93.6 91.9 92.3 RDWCV 19.4* 19.3* 19.6* 20.9* 20.6* 20.3* 20.2* 20.6* NEUTP -- -- -- -- -- -- -- 69.5 ABSNEUT -- -- -- -- -- -- -- 9.18* LYMPHP -- -- -- -- -- -- -- 15.2 MONOP -- -- -- -- -- -- -- 12.6 EODINP -- -- -- -- -- -- -- 1.3 COAG: Recent Labs 04/25/25 1033 04/24/25 1716 04/22/25 0135 04/21/25 1108 04/21/25 03404/20/25 1822 APTT 75.7* -- -- 62.7* -- 43.3* INR 5.3* 5.4* 3.9* 5.1* 4.3* 3.3* BMP: Recent Labs 04/25/25 0800 04/24/25 0645 04/23/25 1237 04/22/25 0136 04/21/25 1108 04/21/25 0341 04/20/25 1822 GLUC 68* 79 94 96 85 92 107* NA 135* 133* 136 139 137 135* 138 K 4.8 4.6 4.3 4.5 4.4 4.5 4.1 CHLOR 95* 94* 94* 99 95* 95* 97* CO2 25 18* 15* 19* ANION 17* 16* 17* 15 24* 25* 22* BUN 26* 14 29* 17 54* 52* 50* CREAT 7.04* 4.83* 7.96* 5.68* 12.66* 12.27* 11.59* CHEM: Recent Labs 04/25/25 0800 04/24/25 0645 04/23/25 1237 04/22/25 0136 04/21/25 1108 04/21/25 0341 04/20/25 1822 ALB 3.1* 3.1* 3.1* 3.1* 3.1* 3.3* 3.4* TPROT -- -- -- -- 7.7 8.6* 8.9* CA 7.8* 8.7 8.3* 9.4 9.4 9.8 9.7 MG -- -- -- -- 2.3 2.5* 2.5* HEPATIC: Recent Labs 04/21/25 1108 04/21/25 0341 04/20/25 1822 ALKPHOS 151* 167* 178* ALT 9* 10 10 AST 16 22 17 TBILI 0.4 0.4 0.4 URINALYSIS:No results for input(s): PH, SPGR, UGLUC, UBILI, UKET, UHB, UPROT, UROBIL, UWBC, SSA in the last 168 hours. Invalid input(s): NITR CARDIAC: No results for input(s): CKTEST, CKMB, CKMBP, TROPT, PBNP in the last 168 hours. MICROBIOLOGY: Positive Micro-30 Days No results found for the last 720 hours. Imaging: CXR 04/21/25: TDC with tip in RA. Increase of perihilar and basilar opacities with volume loss, suggesting atelectasis, possible underlying edema/inflammation. Blunting of L CP angle, which may represent tiny effusion or pleural thickening. CT A/P 04/22/25: No abdominal or pelvic subcutaneous fluid collection of gas. Redemonstrated diffuse subcutaneous extensive abdominal wall collaterals, similar to prior CTA 10/17/2024. CT chest 04/22/25: extensive chest wall collaterals, few areas of skin ulceration, no areas of drainable fluid collection. Findings consistent with central venous stenoses. Few patchy groundglass opacities, may be related to mild pulm edema Assessment AND Plan: Elia Weston is a 45 year old male with extensive PMH, significant for ESRD on HD (MWF) last session 04/18 (skipped Friday since he came to ED), CAD s/p CABG, severe MS s/p MVR on Warfarin, pAfib s/p maze procedure and RADHA clip and chronic chest/abdominal/back wounds (3 years) likely secondary to ischemia in context of SVC syndrome and multiple thrombosis, who presented to the ED with 1-day of left chronic chest wound bleeding. Admitted for management of bleeding, and on transfer to [facility], patient began to have significant bleeding from R chest wound. Continuous pressure was applied and bleeding stopped. Now s/p FFP and RBC transfusions as appropriate. Started on Vanc/Zosyn given elevated ESR/CRP, pending further imaging to evaluate for underlying infection. Dermatology and wound care consulted. IR consulted to evaluate for possible intervention given bleeding from chest wall venous ulcers. 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 Hx of hemorrhagic shock from bleeding abdominal wounds - presenting with acute worsening of pain and bleeding from wounds. Denies purulent discharge from wounds . - Leukocytosis + Elevated CRP 22.1 and ESR 133 + Elevated lactate on presentation; concerned for infected wounds/soft tissue infection. Started on IV vanc/zosyn, later d/janie due to low infectious concern (04/21-04/25) - On admission, acute rise in lactate in light of acute significant bleeding and drop in HGB (8.6 from 9.5 in ED) likely secondary to hypovolemia, also missed dialysis - CT venogram on 10/19/24 with b/l brachiocephalic stenosis w b/l subclavian vein occlusion, extensive venous collaterals - 10/22/24: Venoplasty completed by IR, removed L femoral TDC, exchanged R TDC - blood cultures 04/20/25 with NG5D x2 - AMET for hypotension 80/50, s/p 500 cc LR bolus, scheduled midodrine with improved repeat 102/63 - lactate 2.4 from 1.7, improved from 3.2 at admission. Completed 5d course of IV vanc/zosyn (04/21-04/25) - CT chest and CT A/P 04/22/25 with no drainable fluid collections, extensive chest collaterals - nutritional workup: B12 elevated, folate wnl, iron low 26, TIBC low 137, trans sat wnl, low vit D 22.9, zinc 69 wnl PLAN: - IR consulted: > venoplasty initially planned for 04/25/2025, ok to do procedure with therapeutic INR 2.5-3.5. However with INR 5.3, needs to be improved prior to procedure scheduling - Derm consulted: > pending Nutritional workup (vit A, B6, C, essential fatty acids) > considering trial of topical steroid on small wound - can start vitamin D supplementation - wound care team consulted, appreciate care - will consider plastic surgery consult after venoplasty - pain control with tylenol 650 mg q6h prn and oxycodone 10 mg po q6h PRN - Cautious fluid resuscitation in light of acute bleeding and ESRD anuric on HD #Supratherapeutic INR #CAD s/p CABG #Severe MS s/p mechanical MVR on coumadin #Paroxysmal Afib s/p multiple DCCV s/p Maze procedure + RADHA clip (07/2021) - atrial fibrillation and severe mitral stenosis s/p mechanical mitral valve replacement with On-x valve (INR goal 2.5-3.5), Maze procedure and RADHA clip on 08/21/2021. - Goal INR 2.5- 3.5; on warfarin 2.5 mg daily although patient not sure of dose, has been changed recently; last dose of warfarin Thursday 04/19 - INR elevated to 5.1 on admission, improved to 3.9 s/p 2u FFP 04/21 - possible etiology of supratherapeutic INR: warfarin dose (given patient not sure of home dose) vs malnutrition vs liver disease (less likely given AST/ALT wnl) - INR elevated again to 5.3, patient received po vitamin K 5 mg 04/25 PLAN: - continue holding warfarin - pending repeat INR, can consider INR reversal and then bridging with heparin gtt if INR <2.5 - Daily INR #ESRD on HD via Right TDC #Chronic Hypotension #Secondary Hyperparathyroidism - iHD at [facility] [place] through R. Tunneled HD catheter MWF - Last dialysis session Friday04/18/2025; missed Fri session because he presented to [facility] ED - anuric at baseline per patient - Serum P=9.7 - completed HD 04/21, last HD session 04/25 PLAN: - nephrology consulted: > Resume MWF HD schedule - Continue Sensipar, renvela with meals - continue home Midodrine 20mg daily #Anemia of Chronic Disease/ESRD - Baseline hemoglobin 9-11 - iron studies 12/2024: iron 33, TIBC 156, Iron sat 21, ferritin 1327 - Hgb dropping iso bleeding wounds, as above. - received 1u pRBC 04/21, Hgb from 7.3 -> 7.7 post-transfusion - Hgb 6.9 on 04/22, s/p additional 2u pRBC with Hgb in ~8s PLAN: - Hgb goal >8 - chronic wound mgmt, as above #Code status - Full # Diet - renal # VTE PPx - holding iso bleeding wounds and supratherapeutic INR # Dispo Planning - Pending clinical course, SW consulted for recent unemployment, c/f food insecurity These recommendations and plan are not final until co-signed by the attending physician Marylin Raymond MD. Parker Moe MD PGY-1 04/26/2025 5:11 AM CONSULT PROG Observed: 04/25/2025 2:14 PM Status: COMPLETED Source: [facility] HNO ID: [id number] Author: ELVA PATEL APRN.[employer] Service: ? Author Type: Nurse Practitioner Type: Consult Progress Note Filed: 04/25/2025 14:34 Note Text: Department of Kidney Medicine Medical Specialties [place] [facility] NEPHROLOGY CONSULT SERVICE PROGRESS NOTE INTERVAL HISTORY: Noted INR 5.4. Patient seen on IHD. Orders placed and confirmed in LEONEL Tolerating well. Admission weight: 115.6 kg (254 lb 13.6 oz) Last recorded weight: 115.6 kg (254 lb 13.6 oz) MEDICATIONS: Current Facility-Administered Medications Medication Dose Route Frequency NaCl 0.9% iv flush bag 20 mL INTRAVENOUS PRN acetaminophen 650 mg tab(s) (TYLENOL) 650 mg ORAL q 6 H PRN polyethylene glycol 3350 17 g packet 17 g ORAL DAILY PRN aspirin 81 mg chewable tab(s) 81 mg ORAL DAILY midodrine 20 mg tab(s) (PROAMATINE) 20 mg ORAL q 8 H cinacalcet 60 mg tab(s) (SENSIPAR) 60 mg ORAL DAILY iv contrast (radiology procedure) INTRAVENOUS DIRECTED PRN sevelamer carbonate 800 mg tab(s) (RENVELA) 800 mg ORAL TID w MEALS oxyCODONE IR 10 mg tab(s) (ROXICODONE) 10 mg ORAL q 6 H PRN phytonadione (vitamin K1) 5 mg tab(s) (MEPHYTON) 5 mg ORAL ONCE ALLERGIES: Gabapentin and Trazodone VITAL SIGNS: BP (!) 110/43 Pulse 65 Temp 36.5 ?C (97.7 ?F) (Oral) Resp 18 Wt 115.6 kg (254 lb 13.6 oz) SpO2 100% BMI 36.90 kg/m? PHYSICAL EXAM: GENERAL: awake, alert, in no acute distress, cooperative, lying in bed SKIN: Skin color, texture, turgor normal. No rashes or lesions. HEENT: normocephalic,moist oral mucosa NECK: no JVD, masses or bruits LUNGS: Good diaphragmatic excursion and normal respiratory effort. CARDIAC: RRR ABDOMEN: soft, round EXTREMITIES: + BLE edema NEURO: AOx3, normal speech, muscle strength grossly intact ACCESS: RIJ TDC accessed with normal findings Lines, Drains, and Airways Line Duration Dialysis / Apheresis Double Lumen External Facility Tunneled Right -- days Peripheral Left Forearm 20 Gauge -- days Labs: Recent Labs 04/25/25 1033 04/25/25 0800 04/25/25 0751 04/24/25 1716 04/24/25 0645 04/23/25 1237 WBC -- -- 6.22 -- 7.98 9.99 HB -- -- 8.0* -- 8.4* 8.2* HCT -- -- 26.1* -- 28.1* 26.4* PLT -- -- 281 -- 301 323 INR 5.3* -- -- 5.4* -- -- APTT 75.7* -- -- -- -- -- NA -- 135* -- -- 133* 136 K -- 4.8 -- -- 4.6 4.3 CHLOR -- 95* -- -- 94* 94* CO2 -- 23 -- -- 23 25 ANION -- 17* -- -- 16* 17* BUN -- 26* -- -- 14 29* CREAT -- 7.04* -- -- 4.83* 7.96* GLUC -- 68* -- -- 79 94 CA -- 7.8* -- -- 8.7 8.3* P -- 5.5* -- -- 4.0 5.3* Recent Labs 04/25/25 0800 04/24/25 0645 04/23/25 1237 ALB 3.1* 3.1* 3.1* ASSESSMENT: Mr. 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 Labs on presentation significant for elevated lactic acid, leukocytosis, anemia and supratherapeutic INR. Of note, his previous admission 10/12/2024-11/02/2024 was also for pain and bleeding of the wounds/skin ulcers. Biopsy was consistent with reactive ischemic changes at the time without features of Polyderma Gangrenosum or calciphylaxis. Patient was admitted under general internal medicine team for further management. Nephrology consulted for ESR management. 1.ESRD History -Etiology: HTN Renal Biopsy 2005 renal failure, of undetermined etiology. All of the glomeruli examined are obliterated by total global sclerosis -Date of first HD: 2005 -Current HD unit: [facility] -Configuration Release Manager: Dr Melendez -Schedule: Fri-Fri-Fri -Time: 4.5 hrs -EDW: 114 kg -Date of last outpatient dialysis: 04/18/25 -Access: R IJ TDC 2.Electrolytes/acid-base: -stable, modulating with DRYWALL SANDER 3.Blood Pressure/Volume Status: -BP 113/58 - SBP 90-115 -Hypotension modulated with Midodrine 20 mg Q8 -OPT: Midodrine 10 mg PRN dialysis -EDW 114 kg, Pre-weight today 115.6 kg with UF goal 1.5-2.5 L ast tolerated -hypervolemia on exam with large rounder taut abd and slight taut BLE 4.Anemia Due to multiple mechanisms: -Hgb below ESRD goal -S/P RBC transfusions 04/22 -Transfuse per primary -Iron Stores 04/04: Ferritin 653 Iron 25 TIBC 180 TSAT 14 -Avoid IV iron in the setting of infection -OPT: Venofer 100 mg TIW -ANABELLA: Consider if hgb <8 or LOS >7days -OPT: Mircera 225 mcg Q2 weeks last given unknown 5.Secondary renal hyperparathyroidism: -Phos stable on Renvela -Calcium stable -Sensipar 60 mg every day -OPT: Calcitriol 2.5 mcg TIW 6. Chronic wounds -Per dermatology: continue to favor that wounds are related to reactive ischemic changes given patient's co-morbidities PLAN: -IHD today x 4.5 hours ordered, however, clotted off early, 3K bath, UF goal 2.5-3 L as tolerates -will utilize flushes for next treatment as we are avoiding heparin in the circuit at this time given INR levels and ongoing bleeding issues -Next dialysis planned for // schedule -Continue Renvela with meals -Continue Sensipar daily -continue PRN Midodrine with dialysis to support BP to allow for volume removal Standard ESRD recommendations and precautions: - Strict IANDOs and Daily weight - Consider a RENAL Diet for HD patients - Fluid restriction < 1 L - Start Nephrocap or other renal multivitamin to replace water-soluble vitamins lost during dialysis - Avoid Lovenox, Demerol, Morphine, K-containing IVF, Mg- or Phos- containing enemas - Dose meds GFR 10 ml/min Outpatient dialysis disposition plan: contact [phone] and ask to speak with the director of front office as needed for assistance with post-discharge arrangements. Please DO NOT schedule patient for a nephrology follow up appointment. Kidney care will be provided by the primary data warehousing engineer at their dialysis unit upon hospital discharge. Elva Patel APRN.[facility] Nephrology and Hypertension [facility] April 25, 2025 2:14 PM PAGER # [phone] Disclosures: Parts of the current progress note may have been copied from a previous note. FOR AFTER HOUR CONCERNS BETWEEN 5PM - 7AM CONTACT ON-CALL NEPHROLOGY FELLOW [phone] CONSULT PROG Observed: 04/25/2025 1:51 PM Status: COMPLETED Source: [facility] HNO ID: [id number] Author: ANNIE UREÑA RPh Service: Pharmacy Author Type: Pharmacist Type: Consult Progress Note Filed: 04/25/2025 13:51 Note Text: PHARMACY VANCOMYCIN DOSING NOTE Patient Name: Elia Weston Admission Date: 04/20/2025 Date of Consult: 04/25/2025 Time of Consult: 1:51 PM RECOMMENDATIONS/PLAN: Pharmacy consulted for vancomycin dosing for Elia Weston, a 45 year old male. Vancomycin therapy has been discontinued. Vancomycin level(s) have been discontinued: Not Applicable. The pharmacy vancomycin dosing service will sign off. Thank you for allowing us to participate in this patient's care. Please contact pharmacy if there are questions. Annie Ureña RPh CONSULT PROG Observed: 04/25/2025 11:36 AM Status: COMPLETED Source: [facility] HNO ID: [id number] Author: BHATKI KIRBY MD Service: Dermatology Author Type: Resident Type: Consult Progress Note Filed: 04/26/2025 10:06 Note Text: Attestation signed by Bhakti Kirby MD at 04/26/2025 10:06 AM #Chronic wounds Medical Complexity: chronic illness with exacerbation and/or progression I was physically present during the critical/mendoza portions of this encounter and during all procedures, and agree with the above evaluation, assessment, and treatment plan. I reviewed the patient's chart and discussed care with the patient and the other physicians involved. Bhakti Kirby MD DERMATOLOGY HOSPITAL CONSULT SERVICE PROGRESS NOTE Interval Events - afebrile - still with pain but it's manageable PHYSICAL EXAM BP (!) 110/43 Pulse 65 Temp 36.5 ?C (97.7 ?F) (Oral) Resp 18 Wt 115.6 kg (254 lb 13.6 oz) SpO2 100% BMI 36.90 kg/m? GEN: Age appropriate Patient declines physical examination given pain with dressing changes/location in HD. Reviewed photos in chart from 04/22/2025: - L chest with deep ulcer with granulation tissue at the periphery and hemorrhagic crust at the center. Worsening compared to photo from 12/04/24. - R chest with ulceration deeper than photo 09/06/24 - Back with scattered ulcerations with granulation tissue at base and hyperpigmented periphery. Hypopigmented scars with hyperpigmented periphery. Enlarged compared to photos from November 2024 and August 2024. - Abdomen with scattered ulcerations with granulation tissue at base and hyperpigmented periphery. Hypopigmented scars with hyperpigmented periphery. Improving compared to photos from August 2024. LABORATORY TESTS: DATA: IMAGING: No pertinent imaging LABS: - CBC without leukocytosis as of 04/25 - Elevated phos elevated to 5.5 - total Ca low 7.8 - CRP elevated 22.1 - ESR elevated 133 - Blood cultures (04/20) - NGTD Vit B 12 >2,000 (high) Folate WNL Vit D 22.9 (low) Iron 26, TIBC 137, Tsat WNL B6, C, Zinc, A pending BIOPSY: Punch biopsy 10/15/24 FINAL DIAGNOSIS A. Skin, chest, punch biopsy: - Dermal fibrosis and reactive vascular proliferation, see comment. APF/dkm 10/18/2024 at 1513 EST Diagnosis Comment Histologic sections display a basket-weave to compact orthokeratotic stratum corneum with focal parakeratosis overlying a markedly acanthotic and mildly spongiotic epidermis. Within the dermis, there is a superficial and deep interstitial vascular and histiocytic proliferation with collagen fibrosis and elastic fiber disarray. There is a scant perivascular mixed infiltrate including lymphocytes, histiocytes, and neutrophils. Eosinophils are not readily identified. To further evaluate this specimen, immunohistochemical and special stains were performed and compared to appropriate controls. Gram, GMS, and AFB-Christiana stains are negative for evidence of infectious organisms. A Von Kossa stain is negative for evidence of intraluminal or dermal calcium deposition. In order to further evaluate the vascular proliferation, immunohistochemical staining is performed at the [facility] on block A1 with appropriate controls. Stains for CD31 and ERG highlight the vascular endothelial cells, showing that they are mostly small and thin-walled without significant nuclear enlargement or multilayering. The clinical history and photographs are reviewed. Overall, these features are those of dermal fibrosis and a reactive vascular proliferation. These findings could be consistent with reactive ischemic changes in the correct clinical context. Features of pyoderma gangrenosum calciphylaxis are not identified, although the subcutaneous adipose tissue is minimally sampled. Clinical correlation remains essential. 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 On admission, patient had leukocytosis with elevated CRP/ESR and elevated lactate. Patient is on IV antibiotics. Currently patient is afebrile and leukocytosis has resolved. No clinical signs of infection at this time. Punch biopsy 06/26/23 revealed ulcer with dermal fibrosis, vascular ectasia, and reactive vascular proliferation - overall nonspecific findings but could be related to chronic ischemia given patient's history and clinical morphology. Punch biopsy 10/15/24 showing dermal fibrosis and a reactive vascular proliferation which is most consistent with reactive ischemic changes in the correct clinical context. Features of pyoderma gangrenosum, calciphylaxis not identified. Tissue cultures no growth on bacterial culture and NGTD on fungal/AFB. Patient denies the presence of a preceding papule or pustule that progresses to ulceration quickly. He endorses the lesions start as hyperpigmentation and skin tears. Denies painful indurated plaques in areas of ulceration prior to onset. Clinically, initial presentation is not consistent with calciphylaxis or pyoderma gangrenosum, prior biopsy is supportive of ischemic vasculopathy as likely trigger for non-healing ulcers. Pt remains afebrile without leukocytosis, low concern for infection. He reports improvement in prior wounds. Continue to favor that wounds are related to reactive ischemic changes given patient's co-morbidities (ESRD, HTN, vasculopathy). Given persistent, non-healing wounds, recommend nutritional workup given patient's diet is limited, following labs as they return. Discussed option to repeat biopsy with patient today 04/25 and he declined given that he has had numerous biopsies in the past. Pt feels that when he has received systemic steroids in the past it improved the pain and appearance of his wounds. Given that infectious work up of his wounds has been negative to date, would consider a trial of a topical steroid to a smaller wound to assess its response. Pt deferred exam today since he was in HD so will talk with him tomorrow and discuss this option and choose a wound to treat. PLAN: (Not final until signed by staff physician) - await remainder of nutritional workup for poorly healing wounds, supplementation as appropriate - Agree with wound care recommendations per WOC team - Will talk with patient tomorrow about trial of a topical steroid on a small wound to assess response Patient discussed with attending printed circuit board assembler, Dr. Gregory Beltran MD April 25, 2025 11:36 AM Please use consult pager [phone], Mon-Fri 8am-5pm. Please call adzing and boring machine operator for on-call resident/pager during all other hours. TYPE + SCREEN Collected: 04/25/2025 10:33 AM Status: F Source: [facility] Order Comment: Specimen Type : BLOOD SPECIMEN Ordering Facility: [facility] Address: [address] [place] [address] TYPE CODE TESTS RESULT OUT OF RANGE REFERENCE UNITS LAB [id number] ABO B LAB [id number] RH Positive LAB [id number] ANTIBODY SCREEN Negative LAB [id number] TYPE AND SCREEN EXPIRATION 04/28/2025 23:59 Performed By: #### TSCR #### [facility] CLIA [id number] [address] [place] [address] [place] APTT PPP Collected: 10:33 AM Status: F Source: [facility] Order Comment: Specimen Type : BLOOD SPECIMEN Ordering Facility: [facility] Address: [address] [place] [address] TYPE CODE TESTS RESULT OUT OF RANGE REFERENCE UNITS LAB 05146-5(LOINC) aPTT PPP 75.7 High 23.0-32.4 sec Performed By: #### 43436-2, 93125-4 #### [facility] CLIA [id number] [address] [place] [address] [place] PT PNL PPP Collected: 10:33 AM Status: F Source: [facility] Comment: Specimen Type : BLOOD SPECIMEN Ordering Facility: [facility] Address: [address] [place] [address] TYPE CODE TESTS RESULT OUT OF RANGE REFERENCE UNITS LAB 5902-2(LOINC) Prothrombin time 51.1 High 9.7-13.0 sec LAB 6301-6(LOINC) INR PPP 5.3 High 0.9-1.3 Result Comment: Vitamin K An tagonist (VKA) Therapeutic Range: INR 2 to 3 (Target INR of 2.5) Note: For patients treated with VKA drugs, such as warfarin, the [place] [employer] 2012 Guideline recommends a therapeutic INR range of 2 to 3 (target INR of 2.5). This recommendation includes high-risk patients with antiphospholipid syndrome with previous arterial or venous thromboembolism, current-generation mechanical or bioprosthetic aortic heart valve replacement. Note: Patients with mechanical aortic valve replacement and additional risk factors for thromboembolic events (atrial fibrillation, previous thromboembolism, LV dysfunction, hypercoagulable conditions) or an older generation mechanical AVR (i.e., ball in-Cage) or any mechanical MVR should have a INR therapeutic range of 2.5 to 3.5 (target INR of 3). Ranjit YOUSSEF, et al. Chest 2012, 141:7S-47S Kevin RUSHING, et al. JAC 2017, 70: 252-289 Performed By: #### 14522-2, 50563-3 #### [facility] CLIA [id number] [address] [place], [place] [address] [place] [address] [place] RENAL FUNC 2000 PNL SERPL Collected: 8:00 AM Status: F Source: [facility] Order Comment: Specimen Type : BLOOD SPECIMEN Ordering Facility: [facility] Address: [address] [place] [address] TYPE CODE TESTS RESULT OUT OF RANGE REFERENCE UNITS LAB 1751-7(LOINC) Albumin SerPl-mCnc 3.1 Low 3.9-4.9 g/dL LAB 44959-7(LOINC) Calcium SerPl-mCnc 7.8 Low 8.5-10.2 mg/dL LAB 2777-1(LOINC) Phosphate SerPl-mCnc 5.5 High 2.7-4.8 mg/dL LAB 2345-7(LOINC) Glucose SerPl-mCnc 68 Low 74-99 mg/dL Result Comment: The [place] Diabetes Association (ADA) provides guidance for cutoff values for fasting glucose and random glucose. The ADA defines fasting as no caloric intake for at least 8 hours. Fasting plasma glucose results between 100 to 125 mg/dL indicate increased risk for diabetes (prediabetes). Fasting plasma glucose results greater than or equal to 126 mg/dL meet the criteria for diagnosis of diabetes. In the absence of unequivocal hyperglycemia, results should be confirmed by repeat testing. In a patient with classic symptoms of hyperglycemia or hyperglycemic crisis, random plasma glucose results greater than or equal to 200 mg/dL meet the criteria for diagnosis of diabetes. Reference: Standards of Medical Care in Diabetes 2016, [place] Diabetes Association. Diabetes Care. 2016.39(Suppl 1). LAB 3094-0(LOINC) BUN SerPl-mCnc 26 High 9-24 mg/dL LAB 2160-0(LOINC) Creat SerPl-mCnc 7.04 High 0.73-1.22 mg/dL LAB 2951-2(LOINC) Sodium SerPl-sCnc 135 Low 136-144 mmol/L LAB 2823-3(LOINC) Potassium SerPl-sCnc 4.8 3.7-5.1 mmol/L LAB 5-0(LOINC) Chloride SerPl-sCnc 95 Low 98-107 mmol/L LAB 2027-(LOINC) CO2 SerPl-sCnc 23 22-30 mmol/L LAB 87673-5(LOINC) Anion Gap SerPl-sCnc 17 High 8-15 mmol/L LAB 24042-0(LOINC) eGFRcr SerPlBld CKD-EPI 2020 9 Low >=60 mL/min/1. 73m??? Result Comment: Estimated Gl omerular Filtration Rate (eGFR) is calculated using the 2020 CKD-EPI creatinine equation. This equation utilizes serum creatinine, sex, and age as parameters. The creatinine assay has traceable calibration to isotope dilution-mass spectrometry. Refer to KDIGO guidelines for clinical interpretation. In patients with unstable renal function, e.g. those with acute kidney injury, the eGFR may not accurately reflect actual GFR. Performed By: #### 57980-3 # ### [facility] CLIA [id number] [address] [place] [address] [place] CBC PNL BLD AUTO Collected: 5 7:51 AM Status: F Source: [facility] Order Comment: Specimen Type : BLOOD SPECIMEN Ordering Facility: [facility] Address: [address] [place] [address] TYPE CODE TESTS RESULT OUT OF RANGE REFERENCE UNITS LAB 6690-2(LOINC) WBC # Bld Auto 6.22 3.70-11.00 k/uL LAB 789-8(LOINC) RBC # Bld Auto 2.87 Low 4.20-6.00 m/uL LAB 718-7(LOINC) Hgb Bld-mCnc 8.0 Low 13.0-17.0 g/dL LAB 4544-3(LOINC) Hct VFr Bld Auto 26.1 Low 39.0-51.0 % LAB 787-2(LOINC) MCV RBC Auto 90.9 80.0-100.0 fL LAB 785-6(LOINC) MCH RBC Qn Auto 27.9 26.0-34.0 pg LAB 786-4(LOINC) MCHC RBC Auto-mCnc 30.7 30.5-36.0 g/dL LAB 46955-1(LOINC) RDW RBC-Rto 19.4 High 11.5-15.0 % LAB 777-3(LOINC) Platelet # Bld Auto 281 150-400 k/uL LAB 37104-6(LOINC) PMV Bld Auto 10.5 9.0-12.7 fL LAB 771-6(LOINC) nRBC # Bld Auto <0.01 <0.01 k/uL Performed By: #### 23293-7 # ### [facility] CLIA [id number] [address] [place] [address] OF [facility] PROGRESS Observed: 04/25/2025 5:55 AM Status: COMPLETED Source: [facility] HNO ID: [id number] Author: MARYLIN RAYMOND MD Service: General Internal Medicine Author Type: Resident Type: Progress Notes Filed: 04/25/2025 23:48 Note Text: Attestation signed by Marylin Raymond MD at 04/25/2025 11:48 PM [facility] STAFF PHYSICIAN NOTE OF PERSONAL INVOLVEMENT IN CARE I have reviewed the note obtained and documented and I personally participated in the mendoza components. I have discussed the case and management of the patient's care. I reviewed the medical record in detail. The following comments revise or confirm relevant mendoza components of their note. Agree with documented note. INR supratherapeutic, given vit K Awaiting IR venoplasty Wound surgical team consulted, appreciate rec SIGNATURE: Marylin Raymond MD, MPH Staff, Department of Hospital Medicine 04/25/2025 INPATIENT INTERNAL MEDICINE PROGRESS NOTE PATIENT NAME: Elia Weston ; AGE: 6 1980; 45 year old HOSPITAL ROOM: G090 033/[id number] DATE OF SERVICE: 04/25/2025 ATTENDING PHYSICIAN: Marylin Raymond MD TIME OF SERVICE: AM Rounds SERVICE: Inpatient Medicine service Admit Date: 04/20/2025 Length of Stay: 4 Reason for Admission: Bleeding from wounds. Brief Summary Mr. 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 Patient was hospitalized in September 2024 to October 2024 for pain and bleeding from the wounds. Patient was seen by dermatology back then for his skin ulcers. Biopsy performed and was most c/w reactive ischemic changes without features of Pyoderma Gangrenosum or Calciphylaxis. Tissue culture that time didn't show growth. Interval Events/Subjective: - Overnight, INR elevated to 5.4. This morning, patient was seen lying in bed, with CPAP. He endorsed continued wound pain but manageable with current pain regimen. - Afebrile, SBP 90s-100s, HR 70s, R 17-18, SpO2 98-100% on RA. - required tylenol 650 mg q6h x2 and oxycodone 10 mg q6h x3 Objective: BP: 109/63 Temp: 36.8 ?C (98.2 ?F) Pulse: 76 O2 Therapy: Continuous Positive Airway Pressure SpO2: 100 % Physical Exam GENERAL: Alert, no distress, cooperative SKIN: Patient declined examination of wounds this morning. Previously seen: R and L anterior and posterior chest wounds - chronic, bleeding, no purulent discharge. Right flank/back chronic wounds. Images scanned in chart. LUNGS: Lungs clear to auscultation bilaterally. CARDIAC: Regular rate and rhythm. Normal S1 and S2; no rubs, murmurs, or gallops ABDOMEN: Abdomen distended, non-tender. EXTREMITIES: No LE edema NEURO: Alert, oriented though tired, following commands and answering questions appropriately. Lines, Drains, and Airways Line Duration Dialysis / Apheresis Double Lumen External Facility Tunneled Right -- days Peripheral Left Forearm 20 Gauge -- days Active Hospital Problems Diagnosis Bleeding from open wound of chest wall, right, initial encounter Difficult intravenous access Consult IR prior to removal of any catheters Bleeding from wound Open chest wound, right, sequela Unknown etiology Open chest wound, left, sequela Unknown etiology Back wound, unspecified laterality, sequela - Mid Back - Unknown Etiology - POA - Right Upper Back - Unknown Etiology - POA Open wound of abdomen Unknown Etiology Open wound of right thigh Unknown Etiology Wounds, multiple Anemia due to multiple mechanisms Hemorrhage from open wound of left chest wall Ulcers, venous (HCC) Status post Maze operation for atrial fibrillation 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 Acquired hypothyroidism Adjustment disorder with depressed mood Acute on chronic blood loss anemia Supratherapeutic INR S/P MVR (mitral valve replacement) History: MR Assessment: 08/21/2021: OnX + posterior mitral annulus patch with bovine pericardial + Left CryoMAZE + Left atrial appendage ligation Plan: ASA, start Coumadin 08/24, hep gtt History of non-ST elevation myocardial infarction (NSTEMI) ESRD on hemodialysis (HCC) Atrial fibrillation (HCC) on Coumadin and Amiodarone Secondary hyperparathyroidism, renal (HCC) Reportedly elevated PTH High PhxCa ratio in the past Now with worsening metastatic calcifications Will recheck Ca, PO4, Vitamin D, and PTH Continue phosphate binders If PTH elevated, ? Need to calcimemtics to suppress the PTH Will discuss further with the nephrology team MEDICATIONS Current Facility-Administered Medications Medication Dose Route Frequency vancomycin dosing and monitoring per pharmacy OTHER As Directed NaCl 0.9% iv flush bag 20 mL INTRAVENOUS PRN acetaminophen 650 mg tab(s) (TYLENOL) 650 mg ORAL q 6 H PRN polyethylene glycol 3350 17 g packet 17 g ORAL DAILY PRN aspirin 81 mg chewable tab(s) 81 mg ORAL DAILY midodrine 20 mg tab(s) (PROAMATINE) 20 mg ORAL q 8 H cinacalcet 60 mg tab(s) (SENSIPAR) 60 mg ORAL DAILY piperacillin-tazobactam iv piggyback 3.375 g in dextrose (iso-osmotic) 50 mL (ZOSYN) 3.375 g INTRAVENOUS q 12 HR iv contrast (radiology procedure) INTRAVENOUS DIRECTED PRN sevelamer carbonate 800 mg tab(s) (RENVELA) 800 mg ORAL TID w MEALS oxyCODONE IR 10 mg tab(s) (ROXICODONE) 10 mg ORAL q 6 H PRN vancomycin iv piggyback 1 g in D5W 200 mL (VANCOCIN) 1 g INTRAVENOUS q MO-WE-FR 1800 Labs: Glucose control: CBC: Recent Labs 04/24/25 0645 04/23/25 1237 04/22/25 1044 04/22/25 0134 04/21/25 11004/21/25 03404/20/25 1822 WBC 7.98 9.99 10.90 11.73* 14.79* 15.26* 13.20* HB 8.4* 8.2* 6.9* 7.7* 7.3* 8.6* 9.5* HCT 28.1* 26.4* 23.6* 25.3* 25.0* 28.4* 31.3* PLT 301 323 297 307 355 416* 373 MCV 92.7 91.0 91.5 88.5 93.6 91.9 92.3 RDWCV 19.3* 19.6* 20.9* 20.6* 20.3* 20.2* 20.6* NEUTP -- -- -- -- -- -- 69.5 ABSNEUT -- -- -- -- -- -- 9.18* LYMPHP -- -- -- -- -- -- 15.2 MONOP -- -- -- -- -- -- 12.6 EODINP -- -- -- -- -- -- 1.3 COAG: Recent Labs 04/24/25 1716 04/22/25 0135 04/21/25 11004/21/2534004/20/25 1822 APTT -- -- 62.7* -- 43.3* INR 5.4* 3.9* 5.1* 4.3* 3.3* BMP: Recent Labs 04/24/25 0645 04/23/25 1237 04/22/25 0136 04/21/25 1108 04/21/25 0341 04/20/25 1822 GLUC 79 94 96 85 92 107* NA 133* 136 139 137 135* 138 K 4.6 4.3 4.5 4.4 4.5 4.1 CHLOR 94* 94* 99 95* 95* 97* CO2 18* 15* 19* ANION 16* 17* 15 24* 25* 22* BUN 14 29* 17 54* 52* 50* CREAT 4.83* 7.96* 5.68* 12.66* 12.27* 11.59* CHEM: Recent Labs 04/24/25 0645 04/23/25 1237 04/22/25 0136 04/21/25 1108 04/21/25 0341 04/20/25 1822 ALB 3.1* 3.1* 3.1* 3.1* 3.3* 3.4* TPROT -- -- -- 7.7 8.6* 8.9* CA 8.7 8.3* 9.4 9.4 9.8 9.7 MG -- -- -- 2.3 2.5* 2.5* HEPATIC: Recent Labs 04/21/25 1108 04/21/25 0341 04/20/25 1822 ALKPHOS 151* 167* 178* ALT 9* 10 10 AST 16 22 17 TBILI 0.4 0.4 0.4 URINALYSIS:No results for input(s): PH, SPGR, UGLUC, UBILI, UKET, UHB, UPROT, UROBIL, UWBC, SSA in the last 168 hours. Invalid input(s): NITR CARDIAC: No results for input(s): CKTEST, CKMB, CKMBP, TROPT, PBNP in the last 168 hours. MICROBIOLOGY: Positive Micro-30 Days No results found for the last 720 hours. Imaging: CXR 04/21/25: TDC with tip in RA. Increase of perihilar and basilar opacities with volume loss, suggesting atelectasis, possible underlying edema/inflammation. Blunting of L CP angle, which may represent tiny effusion or pleural thickening. CT A/P 04/22/25: No abdominal or pelvic subcutaneous fluid collection of gas. Redemonstrated diffuse subcutaneous extensive abdominal wall collaterals, similar to prior CTA 10/17/2024. CT chest 04/22/25: extensive chest wall collaterals, few areas of skin ulceration, no areas of drainable fluid collection. Findings consistent with central venous stenoses. Few patchy groundglass opacities, may be related to mild pulm edema Assessment AND Plan: Elia Weston is a 45 year old male with extensive PMH, significant for ESRD on HD (MWF) last session 04/18 (skipped Friday since he came to ED), CAD s/p CABG, severe MS s/p MVR on Warfarin, pAfib s/p maze procedure and RADHA clip and chronic chest/abdominal/back wounds (3 years) likely secondary to ischemia in context of SVC syndrome and multiple thrombosis, who presented to the ED with 1-day of left chronic chest wound bleeding. Admitted for management of bleeding, and on transfer to [facility], patient began to have significant bleeding from R chest wound. Continuous pressure was applied and bleeding stopped. Now s/p FFP and RBC transfusions as appropriate. Started on Vanc/Zosyn given elevated ESR/CRP, pending further imaging to evaluate for underlying infection. Dermatology and wound care consulted. IR consulted to evaluate for possible intervention given bleeding from chest wall venous ulcers. 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 Hx of hemorrhagic shock from bleeding abdominal wounds - presenting with acute worsening of pain and bleeding from wounds. Denies purulent discharge from wounds . - Leukocytosis + Elevated CRP 22.1 and ESR 133 + Elevated lactate on presentation; concerned for infected wounds/soft tissue infection - On admission, acute rise in lactate in light of acute significant bleeding and drop in HGB (8.6 from 9.5 in ED) likely secondary to hypovolemia, also missed dialysis - CT venogram on 10/19/24 with b/l brachiocephalic stenosis w b/l subclavian vein occlusion, extensive venous collaterals - 10/22/24: Venoplasty completed by IR, removed L femoral TDC, exchanged R TDC - blood cultures 04/20/25 with NG1D x2 - AMET for hypotension 80/50, s/p 500 cc LR bolus, scheduled midodrine with improved repeat 102/63 - lactate 2.4 from 1.7, improved from 3.2 at admission - CT chest and CT A/P 04/22/25 with no drainable fluid collections, extensive chest collaterals - nutritional workup: B12 elevated, folate wnl, iron low 26, TIBC low 137, trans sat wnl PLAN: - IR consulted: > venoplasty planned with Dr Issa on 04/25/2025, ok to do procedure /with therapeutic INR 2.5-3.5. - on IV vancomycin (04/21--) and IV zosyn (04/21--), can consider d/c given low infectious concern - Derm consulted: > pending Nutritional workup (vit A, B6, C, D, zinc, essential fatty acids) > recommended plastic surgery consult for possible debridement of ulcer on back - can consider plastic surgery consult after venoplasty - pain control with oxycodone 10 mg po q6h PRN - Cautious fluid resuscitation in light of acute bleeding and ESRD anuric on HD #ESRD on HD via Right TDC #Chronic Hypotension #Secondary Hyperparathyroidism - iHD at [facility] through R. Tunneled HD catheter MWF - Last dialysis session Friday04/18/2025; missed Fri session because he presented to [facility] ED - anuric at baseline per patient - Serum P=9.7 - completed HD 04/21 PLAN: - nephrology consulted: > HD done on Sat 04/23, with plan to resume MWF HD schedule > neph to coordinate dialysis around IR procedure time - Continue Sensipar, renvela with meals - continue home Midodrine 20mg daily #CAD s/p CABG #Severe MS s/p mechanical MVR on coumadin #Paroxysmal Afib s/p multiple DCCV s/p Maze procedure + RADHA clip (07/2021) #Supratherapeutic INR - atrial fibrillation and severe mitral stenosis s/p mechanical mitral valve replacement with On-x valve (INR goal 2.5-3.5), Maze procedure and RADHA clip on 08/21/2021. - Goal INR 2.5- 3.5; on warfarin 2.5 mg every day; last dose of warfarin Thursday 04/19 - INR elevated to 5.1 on admission, improved to 3.9 s/p 2u FFP 04/21 PLAN: - continue holding warfarin, can consider starting heparin gtt if INR <2.5 - Daily INR #Anemia of Chronic Disease/ESRD - Baseline hemoglobin 9-11 - iron studies 12/2024: iron 33, TIBC 156, Iron sat 21, ferritin 1327 - Hgb dropping iso bleeding wounds, as above. - received 1u pRBC 04/21, Hgb from 7.3 -> 7.7 post-transfusion - Hgb 6.9 on 04/22, s/p additional 2u pRBC with Hgb in ~8s PLAN: - Hgb goal >8 - chronic wound mgmt, as above #Code status - Full # Diet - NPO # VTE PPx - holding iso bleeding wounds # Dispo Planning - Pending clinical course, SW consulted for recent unemployment, c/f food insecurity * Some portions of this note may have been copied from the last note. However, all sections have been modified, edited or addended by me after thorough review. These recommendations and plan are not final until co-signed by the attending physician Marylin Raymond MD. Parker Moe MD PGY-1 04/25/2025 5:56 AM PT PNL PPP Collected: 04/24/2025 5:16 PM Status: F Source: [facility] Order Comment: Specimen Type : BLOOD SPECIMEN Ordering Facility: [facility] Address: [address] [place] [address] TYPE CODE TESTS RESULT OUT OF RANGE REFERENCE UNITS LAB 5902-2(LOINC) Prothrombin time 51.7 High 9.7-13.0 sec LAB 6301-6(LOINC) INR PPP 5.4 High 0.9-1.3 Result Comment: Vitamin K An tagonist (VKA) Therapeutic Range: INR 2 to 3 (Target INR of 2.5) Note: For patients treated with VKA drugs, such as warfarin, the [place] [employer] 2012 Guideline recommends a therapeutic INR range of 2 to 3 (target INR of 2.5). This recommendation includes high-risk patients with antiphospholipid syndrome with previous arterial or venous thromboembolism, current-generation mechanical or bioprosthetic aortic heart valve replacement. Note: Patients with mechanical aortic valve replacement and additional risk factors for thromboembolic events (atrial fibrillation, previous thromboembolism, LV dysfunction, hypercoagulable conditions) or an older generation mechanical AVR (i.e., ball in-Cage) or any mechanical MVR should have a INR therapeutic range of 2.5 to 3.5 (target INR of 3). Ranjit GH, et al. Chest 2012, 141:7S-47S Kevin RA, et al. [facility] 2017, 70: 252-289 Sample checked for clot. Result rechecked. Performed By: #### 18077-2 # ### [facility] CLIA [id number] [address] [place] [address] OF [facility] ZINC SERPL-MCNC Collected: 4:30 PM Status: F Source: [facility] Order Comment: Specimen Type : BLOOD SPECIMEN Ordering Facility: [facility] Address: [address] [place] [address] TYPE CODE TESTS RESULT OUT OF RANGE REFERENCE UNITS LAB 5763-8(LOINC) Zinc SerPl-mCnc 69 60-120 ug/dL Result Comment: This test wa s developed, and its performance characteristics determined by the [facility] Department of Pathology and Laboratory Medicine. It has not been cleared or approved by the FDA. The [facility] Department of Pathology and Laboratory Medicine is regulated under CLIA as qualified to perform high-complexity testing. This test is used for clinical purposes. It should not be regarded as investigational or for research. Performed By: #### 5763-8 ## ## [facility] [facility] CLIA [id number] [address] [place] [address] [place] PROGRESS Observed: 04/24/2025 7:34 AM Status: COMPLETED Source: [facility] HNO ID: [id number] Author: MARYLIN RAYMOND MD Service: General Internal Medicine Author Type: Resident Type: Progress Notes Filed: 04/24/2025 15:20 Note Text: Attestation signed by Marylin Raymond MD at 04/24/2025 3:20 PM (Updated) [facility] ([facility] STAFF PHYSICIAN NOTE OF PERSONAL INVOLVEMENT IN CARE I have reviewed the note obtained and documented and I personally participated in the mendoza components. I have discussed the case and management of the patient's care. I reviewed the medical record in detail. The following comments revise or confirm relevant mendoza components of their note. Agree with documented note. 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 Restart warfarin once INR sub therapeutic. Spoke with IR Dr Marin: Plan for venoplasty with Dr Issa on 04/25/2025, ok to do procedure with therapeutic INR 2.5-3.5. Continue dialysis per nephrology: resuming OP MWF starting tomorrow SW consult for recent unemployment due to absence from illness and concern for food insecurity SIGNATURE: Marylin Raymond MD, MPH Staff, Department of Hospital Medicine 04/24/2025 INPATIENT INTERNAL MEDICINE PROGRESS NOTE PATIENT NAME: Elia Weston ; AGE: 6 1980; 45 year old HOSPITAL ROOM: [place] [id number] DATE OF SERVICE: April 23, 2025 ATTENDING PHYSICIAN: Marylin Raymond MD TIME OF SERVICE: AM Rounds SERVICE: Inpatient Medicine service Admit Date: 04/20/2025 Length of Stay: 3 Reason for Admission: Bleeding from wounds. Brief Summary Mr. 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 Patient was hospitalized in September 2024 to October 2024 for pain and bleeding from the wounds. Patient was seen by dermatology back then for his skin ulcers. Biopsy performed and was most c/w reactive ischemic changes without features of Pyoderma Gangrenosum or Calciphylaxis. Tissue culture that time didn't show growth. Interval Events/Subjective: - NAEON - SBP 90 - 100s, HR 80s, R 16, SpO2 98% on RA. Afebrile. - required two doses of oxy 10 mg yesterday - resting comfortably in bed Brief Plan for Today: - Plastic Surgery consultation on Friday04/25/2025 for possible debridement of the ulcers on the back. - Nutritional Workup for poor wound healing per dermatology consultation recommendations (e.g. vitamins A, B6, B9, B12, folate, C, D, zinc, iron, essential fatty acids) Objective: Date 04/22/25699 - 04/23/25 0659 04/23/25699 - 04/24/25 0659 Shift 8670-0215 6087-2085 8061-6033 24 Hour Total 2410-4975 5283-7932 4652-0566 24 Hour Total INTAKE PO 240 240 PO 240 240 IV 50 50 100 Volume (mL) (piperacillin-tazobactam iv piggyback 3.375 g in dextrose (iso-osmotic) 50 mL (ZOSYN)) 50 50 100 Blood Products 720 720 Infusion Complete Volume (mL) (RBC Transfusion Instruction) 376 376 Infusion Complete Volume (mL) (RBC Transfusion Instruction) 344 344 Shift Total 770 50 820 240 240 OUTPUT Urine 0 0 Void (ml) 0 0 # of BMs Number of BMs 0 x 0 x 0 x 0 x Shift Total 0 0 Weight (kg) 115.6 115.6 115.6 115.6 115.6 115.6 115.6 115.6 Physical Exam General: with Back pain. AANDOx3 Cardiovascular: No murmurs Respiratory: Couldn't do examination properly because the patient was on CPAP and in pain. Abdomen: Not assessed. Genitourinary: No CVA tenderness. No suprapubic tenderness. Extremities: Not assessed Psych: Normal affect, conversant. Lines, Drains, and Airways Line Duration Dialysis / Apheresis Double Lumen External Facility Tunneled Right -- days Peripheral Left Forearm 20 Gauge -- days Active Hospital Problems Diagnosis Bleeding from open wound of chest wall, right, initial encounter Bleeding from wound Open chest wound, right, sequela Unknown etiology Open chest wound, left, sequela Unknown etiology Back wound, unspecified laterality, sequela - Mid Back - Unknown Etiology - POA - Right Upper Back - Unknown Etiology - POA Open wound of abdomen Unknown Etiology Open wound of right thigh Unknown Etiology Wounds, multiple Anemia due to multiple mechanisms Hemorrhage from open wound of left chest wall Ulcers, venous (HCC) Status post Maze operation for atrial fibrillation 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 Acquired hypothyroidism Adjustment disorder with depressed mood Acute on chronic blood loss anemia Supratherapeutic INR S/P MVR (mitral valve replacement) History: MR Assessment: 08/21/2021: OnX 25/33 + posterior mitral annulus patch with bovine pericardial + Left CryoMAZE + Left atrial appendage ligation Plan: ASA, start Coumadin 08/24, hep gtt History of non-ST elevation myocardial infarction (NSTEMI) ESRD on hemodialysis (HCC) Atrial fibrillation (HCC) on Coumadin and Amiodarone Secondary hyperparathyroidism, renal (HCC) Reportedly elevated PTH High PhxCa ratio in the past Now with worsening metastatic calcifications Will recheck Ca, PO4, Vitamin D, and PTH Continue phosphate binders If PTH elevated, ? Need to calcimemtics to suppress the PTH Will discuss further with the nephrology team MEDICATIONS Current Facility-Administered Medications Medication Dose Route Frequency vancomycin dosing and monitoring per pharmacy OTHER As Directed NaCl 0.9% iv flush bag 20 mL INTRAVENOUS PRN acetaminophen 650 mg tab(s) (TYLENOL) 650 mg ORAL q 6 H PRN polyethylene glycol 3350 17 g packet 17 g ORAL DAILY PRN aspirin 81 mg chewable tab(s) 81 mg ORAL DAILY midodrine 20 mg tab(s) (PROAMATINE) 20 mg ORAL q 8 H cinacalcet 60 mg tab(s) (SENSIPAR) 60 mg ORAL DAILY piperacillin-tazobactam iv piggyback 3.375 g in dextrose (iso-osmotic) 50 mL (ZOSYN) 3.375 g INTRAVENOUS q 12 HR iv contrast (radiology procedure) INTRAVENOUS DIRECTED PRN [Order Held by LIP] sodium bicarbonate 650 mg tab(s) 650 mg ORAL TID sevelamer carbonate 800 mg tab(s) (RENVELA) 800 mg ORAL TID w MEALS oxyCODONE IR 10 mg tab(s) (ROXICODONE) 10 mg ORAL q 6 H PRN Labs: Glucose control: Recent Labs 04/21/25 2210 PCGLUCOSE 87 CBC: Recent Labs 04/24/25 0645 04/23/25 1237 04/22/25 1044 04/22/25 0134 04/21/25 1108 04/21/25 0341 04/20/25 1822 WBC 7.98 9.99 10.90 11.73* 14.79* 15.26* 13.20* HB 8.4* 8.2* 6.9* 7.7* 7.3* 8.6* 9.5* HCT 28.1* 26.4* 23.6* 25.3* 25.0* 28.4* 31.3* PLT 301 323 297 307 355 416* 373 MCV 92.7 91.0 91.5 88.5 93.6 91.9 92.3 RDWCV 19.3* 19.6* 20.9* 20.6* 20.3* 20.2* 20.6* NEUTP -- -- -- -- -- -- 69.5 ABSNEUT -- -- -- -- -- -- 9.18* LYMPHP -- -- -- -- -- -- 15.2 MONOP -- -- -- -- -- -- 12.6 EODINP -- -- -- -- -- -- 1.3 COAG: Recent Labs 04/22/25 0135 04/21/25 1108 04/21/25 03404/20/25 1822 APTT -- 62.7* -- 43.3* INR 3.9* 5.1* 4.3* 3.3* BMP: Recent Labs 04/23/25 1237 04/22/25 0136 04/21/25 1108 04/21/25 03404/20/25 1822 GLUC 94 96 85 92 107* NA 136 139 137 135* 138 K 4.3 4.5 4.4 4.5 4.1 CHLOR 94* 99 95* 95* 97* CO2 18* 15* 19* ANION 17* 15 24* 25* 22* BUN 29* 17 54* 52* 50* CREAT 7.96* 5.68* 12.66* 12.27* 11.59* CHEM: Recent Labs 04/23/25 1237 04/22/25 0136 04/21/25 1108 04/21/25 03404/20/25 1822 ALB 3.1* 3.1* 3.1* 3.3* 3.4* TPROT -- -- 7.7 8.6* 8.9* CA 8.3* 9.4 9.4 9.8 9.7 MG -- -- 2.3 2.5* 2.5* HEPATIC: Recent Labs 04/21/25 11004/21/25 03404/20/25 1822 ALKPHOS 151* 167* 178* ALT 9* 10 10 AST 16 22 17 TBILI 0.4 0.4 0.4 URINALYSIS:No results for input(s): PH, SPGR, UGLUC, UBILI, UKET, UHB, UPROT, UROBIL, UWBC, SSA in the last 168 hours. Invalid input(s): NITR CARDIAC: No results for input(s): CKTEST, CKMB, CKMBP, TROPT, PBNP in the last 168 hours. MICROBIOLOGY: Positive Micro-30 Days No results found for the last 720 hours. Imaging: CXR 04/21/25: TDC with tip in RA. Increase of perihilar and basilar opacities with volume loss, suggesting atelectasis, possible underlying edema/inflammation. Blunting of L CP angle, which may represent tiny effusion or pleural thickening. Assessment AND Plan: Elia Weston is a 45 year old male with extensive PMH, significant for ESRD on HD (MWF) last session 04/18 (skipped Friday since he came to ED), CAD s/p CABG, severe MS s/p MVR on Warfarin, pAfib s/p maze procedure and RADHA clip and chronic chest/abdominal/back wounds (3 years) likely secondary to ischemia in context of SVC syndrome and multiple thrombosis, who presented to the ED with 1-day of left chronic chest wound bleeding. Admitted for management of bleeding, and on transfer to [facility], patient began to have significant bleeding from R chest wound. Continuous pressure was applied and bleeding stopped. Now s/p FFP and RBC transfusions as appropriate. Started on Vanc/Zosyn given elevated ESR/CRP, pending further imaging to evaluate for underlying infection. Dermatology and wound care consulted. IR consulted to evaluate for possible intervention given bleeding from chest wall venous ulcers. 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 Hx of hemorrhagic shock from bleeding abdominal wounds - presenting with acute worsening of pain and bleeding from wounds. Denies purulent discharge from wounds . - Leukocytosis + Elevated CRP 22.1 and ESR 133 + Elevated lactate on presentation; concerned for infected wounds/soft tissue infection - On admission, acute rise in lactate in light of acute significant bleeding and drop in HGB (8.6 from 9.5 in ED) likely secondary to hypovolemia, also missed dialysis - CT venogram on 10/19/24 with b/l brachiocephalic stenosis w b/l subclavian vein occlusion, extensive venous collaterals - 10/22/24: Venoplasty completed by IR, removed L femoral TDC, exchanged R TDC - blood cultures 04/20/25 with NG1D x2 - AMET for hypotension 80/50, s/p 500 cc LR bolus, scheduled midodrine with improved repeat 102/63 - lactate 2.4 from 1.7, improved from 3.2 at admission PLAN: - Continue IV vancomycin and IV zosyn - Derm conuslt: Nutritional workup (ordered), and recommended plastic surgery consult for the back ulcers. - pending CT Chest and CT A/P with contrast to evaluate possible underlying soft tissue infection - pain control with oxycodone 10 mgorally q 4 hrs PRN - IR consulted for possible intervention. Plan for venoplasty with Dr Issa on 04/25/2025, ok to do procedure with therapeutic INR 2.5-3.5. - Cautious fluid resuscitation in light of acute bleeding and ESRD anuric on HD #ESRD on HD via Right TDC #Chronic Hypotension #Secondary Hyperparathyroidism - iHD at [facility] through R. Tunneled HD catheter MWF - Last dialysis session Friday04/18/2025; missed Fri session because he presented to [facility] ED - anuric at baseline per patient - Serum P=9.7 - completed HD 04/21 PLAN: - nephrology consulted: > HD done on Sat 04/23, with plan to resume MWF HD schedule - Continue Sensipar, renvela with meals - continue home Midodrine 20mg daily #CAD s/p CABG #Severe MS s/p mechanical MVR on coumadin #Paroxysmal Afib s/p multiple DCCV s/p Maze procedure + RADHA clip (07/2021) #Supratherapeutic INR - atrial fibrillation and severe mitral stenosis s/p mechanical mitral valve replacement with On-x valve (INR goal 2.5-3.5), Maze procedure and RADHA clip on 08/21/2021. - Goal INR 2.5- 3.5; on warfarin 2.5 mg every day; last dose of warfarin Thursday 04/19 - INR elevated to 5.1 on admission, improved to 3.9 s/p 2u FFP 04/21 PLAN: - continue holding warfarin, can consider starting heparin gtt - Daily INR #Anemia of Chronic Disease/ESRD - Baseline hemoglobin 9-11 - iron studies 12/2024: iron 33, TIBC 156, Iron sat 21, ferritin 1327 - Hgb dropping iso bleeding wounds, as above. - received 1u pRBC 04/21, Hgb from 7.3 -> 7.7 post-transfusion - Hgb 6.9 on 04/22 PLAN: - will give additional 2u pRBC - Hgb goal >8 - chronic wound mgmt, as above #Code status - Full # Diet - NPO # VTE PPx - holding iso bleeding wounds # Dispo Planning - Pending clinical course Bowel regimen: Diet: DVT Prophylaxis: Code Status: Code Status: Full Code Disposition: * Some portions of this note may have been copied from the last note. However, all sections have been modified, edited or addended by me after thorough review. These recommendations and plan are not final until co-signed by the attending physician Marylin Raymond MD. Liz Dominguez MD PGY-3 Internal Medicine 04/24/2025 12:40 PM VIT A SERPL-MCNC Collected: 6:45 AM Status: F Source: [facility] Order Comment: Specimen Type : BLOOD SPECIMEN Ordering Facility: [facility] Address: [address] [place] [address] TYPE CODE TESTS RESULT OUT OF RANGE REFERENCE UNITS LAB 2923-1(LOINC) Vit A SerPl-mCnc 0.10 Low 0.30-1.20 mg/L Result Comment: This test wa s developed, and its performance characteristics determined by the [facility] Department of Pathology and Laboratory Medicine. It has not been cleared or approved by the FDA. The [facility] Department of Pathology and Laboratory Medicine is regulated under CLIA as qualified to perform high-complexity testing. This test is used for clinical purposes. It should not be regarded as investigational or for research. Performed By: #### 2923-1 ## ## [facility] CLIA [id number] [address] [place] [address] [place] VIT B12 SERPL-MCNC Collected: 04/24/2025 6:45 AM Sta tus: F Source: [facility] Order Comment: Specimen Type : BLOOD SPECIMEN Ordering Facility: [facility] Address: [address] [place] [address] TYPE CODE TESTS RESULT OUT OF RANGE REFERENCE UNITS LAB 2132-9(LOINC) Vit B12 SerPl-mCnc >2000 High 232-1245 pg/mL Performed By: #### 2284-8, 2 132-9 #### [facility] CLIA [id number] [address] [place] [address] FOLATE SERPL-MCNC Collected: 04/24/2025 6:45 AM Stat us: F Source: [facility] Order Comment: Specimen Type : BLOOD SPECIMEN Ordering Facility: [facility] Address: [address] [place] [address] TYPE CODE TESTS RESULT OUT OF RANGE REFERENCE UNITS LAB 2284-8([facility]) Folate SerPl-mCnc 7.4 >4.7 ng/mL Performed By: #### 2284-8, 2 132-9 #### [facility] CLIA [id number] [address] [place] [address] [place] CBC PNL BLD AUTO Collected: 6:45 AM Status: F Source: [facility] Order Comment: Specimen Type : BLOOD SPECIMEN Ordering Facility: [facility] Address: [address] [place] [address] TYPE CODE TESTS RESULT OUT OF RANGE REFERENCE UNITS LAB 6690-2(LOINC) WBC # Bld Auto 7.98 3.70-11.00 k/uL LAB 789-8(LOINC) RBC # Bld Auto 3.03 Low 4.20-6.00 m/uL LAB 718-7(LOINC) Hgb Bld-mCnc 8.4 Low 13.0-17.0 g/dL LAB 4544-3(LOINC) Hct VFr Bld Auto 28.1 Low 39.0-51.0 % LAB 787-2(LOINC) MCV RBC Auto 92.7 80.0-100.0 fL LAB 785-6(LOINC) MCH RBC Qn Auto 27.7 26.0-34.0 pg LAB 786-4(LOINC) MCHC RBC Auto-mCnc 29.9 Low 30.5-36.0 g/dL LAB 82993-0(LOINC) RDW RBC-Rto 19.3 High 11.5-15.0 % LAB 777-3(LOINC) Platelet # Bld Auto 301 150-400 k/uL LAB 46784-6(LOINC) PMV Bld Auto 10.1 9.0-12.7 fL LAB 771-6(LOINC) nRBC # Bld Auto <0.01 <0.01 k/uL Performed By: #### 93006-6 # ### [facility] CLIA [id number] [address] [place] [address] [place] IRON+TIBC PNL SERPL Collected: 04/24/2025 6:[address] atus: F Source: [facility] Comment: Specimen Type : BLOOD SPECIMEN Ordering Facility: [facility] Address: [address] [place] [address] TYPE CODE TESTS RESULT OUT OF RANGE REFERENCE UNITS LAB 2498-4(LOINC) Iron SerPl-mCnc 26 Low 41-186 ug/dL LAB 2500-7(LOINC) TIBC SerPl-mCnc 137 Low 232-386 ug/dL LAB 73194-9(LOINC) Iron/TIBC SerPl-sRto 19.0 15.0-57.0 % Performed By: #### 74008-4, 37345-1, 6-4 #### [facility] CLIA [id number] [address] [place] [address] [place] FERRITIN SERPL-MCNC Collected: 04/24/20 6:45 AM Status: F Source: [facility] Comment: Specimen Type : BLOOD SPECIMEN Ordering Facility: [facility] Address: [address] [place] [address] TYPE CODE TESTS RESULT OUT OF RANGE REFERENCE UNITS LAB 2276-4(INC) Ferritin SerPl-mCnc 1288.0 High 30.3-565.7 ng/mL Performed By: #### 81500-0, 55004-7, 2276-4 #### [facility] CLIA [id number] [address] [place], [place] [address] [place] RENAL FUNC 2000 PNL SERPL Collected: 6:45 AM Status: F Source: [facility] Comment: Specimen Type : BLOOD SPECIMEN Ordering Facility: [facility] Address: [address] [place], [place] [id number] TYPE CODE TESTS RESULT OUT OF RANGE REFERENCE UNITS LAB 1751-7(LOINC) Albumin SerPl-mCnc 3.1 Low 3.9-4.9 g/dL LAB 31145-4(LOINC) Calcium SerPl-mCnc 8.7 8.5-10.2 mg/dL LAB 2777-1(LOINC) Phosphate SerPl-mCnc 4.0 2.7-4.8 mg/dL LAB 2345-7(LOINC) Glucose SerPl-mCnc 79 74-99 mg/dL Result Comment: The [place] Diabetes Association (ADA) provides guidance for cutoff values for fasting glucose and random glucose. The ADA defines fasting as no caloric intake for at least 8 hours. Fasting plasma glucose results between 100 to 125 mg/dL indicate increased risk for diabetes (prediabetes). Fasting plasma glucose results greater than or equal to 126 mg/dL meet the criteria for diagnosis of diabetes. In the absence of unequivocal hyperglycemia, results should be confirmed by repeat testing. In a patient with classic symptoms of hyperglycemia or hyperglycemic crisis, random plasma glucose results greater than or equal to 200 mg/dL meet the criteria for diagnosis of diabetes. Reference: Standards of Medical Care in Diabetes 2016, [place] Diabetes Association. Diabetes Care. 2016.39(Suppl 1). LAB 3094-0(LOINC) BUN SerPl-mCnc 14 9-24 mg/dL LAB 2160-0(LOINC) Creat SerPl-mCnc 4.83 High 0.73-1.22 mg/dL Result Comment: Result reche cked. LAB 2951-2(LOINC) Sodium SerPl-sCnc 133 Low 136-144 mmol/L LAB 2823-3(LOINC) Potassium SerPl-sCnc 4.6 3.7-5.1 mmol/L LAB 2075-0(LOINC) Chloride SerPl-sCnc 94 Low 98-107 mmol/L LAB 2027-9(LOINC) CO2 SerPl-sCnc 23 22-30 mmol/L LAB 85567-1(LOINC) Anion Gap SerPl-sCnc 16 High 8-15 mmol/L LAB 12022-5(LOINC) eGFRcr SerPlBld CKD-EPI 2020 14 Low >=60 mL/min/1. 73m??? Result Comment: Estimated Gl omerular Filtration Rate (eGFR) is calculated using the 2020 CKD-EPI creatinine equation. This equation utilizes serum creatinine, sex, and age as parameters. The creatinine assay has traceable calibration to isotope dilution-mass spectrometry. Refer to KDIGO guidelines for clinical interpretation. In patients with unstable renal function, e.g. those with acute kidney injury, the eGFR may not accurately reflect actual GFR. Performed By: #### 06350-3, 94391-2, 2276-4 #### [facility] CLIA [id number] [address] [place] [address] [place] 25([place])D3 [facility] Collected: 04/24/20 6:45 AM Status: F Source: [facility] Order Comment: Specimen Type : BLOOD SPECIMEN Ordering Facility: [facility] Address: [address] [place] [address] TYPE CODE TESTS RESULT OUT OF RANGE REFERENCE UNITS LAB 1988-11(LOINC) 25(OH)D3 [facility] 22.9 Low 31.0-80.0 ng/mL Result Comment: Classificati on of 25 [place] Vitamin D status: Deficiency/Insufficiency: < or = 30 ng/ml. Sufficiency/Optimal Levels: 31-80 ng/mL Toxicity: > 100 ng/mL. Test performed by chemiluminescent immunoassay. Performed By: #### 1989- ## ## [facility] CLIA [id number] [address] [place] [address] [place] CONSULT PROG Observed: 04/23/2025 6:00 PM Status: COMPLETED Source: [facility] HNO ID: [id number] Author: LELA SOLIMAN APRN.CNP Service: Nephrology Author Type: Nurse Practitioner Type: Consult Progress Note Filed: 04/23/2025 18:08 Note Text: Department of Kidney Medicine [facility] [place] CONSULT PROGRESS NOTE NEPHROLOGY Q6 SERVICE SERVICE DATE: 04/23/2025 SERVICE TIME: 6:00 PM SUBJECTIVE INTERVAL HISTORY: - Patient seen on dialysis, single evaluation. Orders confirmed and documented per LEONEL. >> 3K bath, 4.5 hrs, UF goal 0-1L -Seen on IHD this afternoon >> orders confirmed in LEONEL -Seen tolerating HD session -Last HD session with no UF due to hypotension -Alert and awake on assessment -Complaints of constipation and hypervolemia -Denies CP, Shortness of Breath, N/V/D, headache and dizziness -Patient's BP intermittently hypotensive on Midodrine 20 mg -Received RBC transfusions yesterday -Lacking intake documentation -Net +820 mL in last 24 hours MEDICATIONS: Current Facility-Administered Medications Medication Dose Route Frequency vancomycin dosing and monitoring per pharmacy OTHER As Directed NaCl 0.9% iv flush bag 20 mL INTRAVENOUS PRN acetaminophen 650 mg tab(s) (TYLENOL) 650 mg ORAL q 6 H PRN polyethylene glycol 3350 17 g packet 17 g ORAL DAILY PRN aspirin 81 mg chewable tab(s) 81 mg ORAL DAILY midodrine 20 mg tab(s) (PROAMATINE) 20 mg ORAL q 8 H cinacalcet 60 mg tab(s) (SENSIPAR) 60 mg ORAL DAILY piperacillin-tazobactam iv piggyback 3.375 g in dextrose (iso-osmotic) 50 mL (ZOSYN) 3.375 g INTRAVENOUS q 12 HR iv contrast (radiology procedure) INTRAVENOUS DIRECTED PRN sodium bicarbonate 650 mg tab(s) 650 mg ORAL TID sevelamer carbonate 800 mg tab(s) (RENVELA) 800 mg ORAL TID w MEALS vancomycin iv piggyback 1 g in D5W 200 mL (VANCOCIN) 1 g INTRAVENOUS ONCE oxyCODONE IR 10 mg tab(s) (ROXICODONE) 10 mg ORAL q 6 H PRN OBJECTIVE PHYSICAL EXAM: BP 119/52 Pulse 77 Temp 36.3 ?C (97.3 ?F) (Oral) Resp 16 Wt 115.6 kg (254 lb 13.6 oz) SpO2 98% BMI 36.90 kg/m? Intake/Output Summary (Last 24 hours) at 04/23/2025 1800 Last data filed at 04/23/2025 1658 Gross per 24 hour Intake 290 ml Output 1000 ml Net -710 ml GENERAL: Awake, alert, in no acute distress SKIN: Warm and dry, Rt chest wound with dressing HEENT: Normocephalic, Atraumatic LUNGS: Normal respiratory effort on 3L NC CARDIAC: Sinus rhythm on monitor ABDOMEN: round, slightly taut, nodular, non-distended EXTREMITIES: taut BLE edema NEURO: AOx3, normal speech ACCESS: RIJ TDC dressing intact DATA: Diagnostic tests reviewed for today's visit: Recent Labs 04/23/25 1237 04/22/25 0136 04/21/25 1108 04/21/25 0341 04/20/25 1822 NA 136 139 137 135* 138 K 4.3 4.5 4.4 4.5 4.1 CHLOR 94* 99 95* 95* 97* CO2 25 18* 15* 19* BUN 29* 17 54* 52* 50* CREAT 7.96* 5.68* 12.66* 12.27* 11.59* GLUC 94 96 85 92 107* ANION 17* 15 24* 25* 22* CA 8.3* 9.4 9.4 9.8 9.7 P 5.3* 4.5 10.5* 9.7* -- MG -- -- 2.3 2.5* 2.5* Recent Labs 04/23/25 1237 04/22/25 1044 04/22/25 0134 WBC 9.99 10.90 11.73* HB 8.2* 6.9* 7.7* HCT 26.4* 23.6* 25.3* PLT 323 297 307 ASSESSMENT: Mr. Weston is a 45 year old male with PMH significant for ESRD on IHD, HTN, BMI>35, vascular access complications, YEIMY, DVT, p-AFIB, anemia, blind left eye, expressive dysphasia, endocarditis, NSTEMI, HFpEF, Mitral 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, MO, PE, CVA, hypotension on Midodrine, CHB, colitis, Adjustment Disorder With Depressed Mood, MSSA bacteremia, Proximal Colon Ulcer, Hypothyroidism, Intra-Abdominal Varices, Stenosis of Superior Vena Cava, chronic pain, jugular vein occlusion, S/P MAZE procedure, skin ulcers, GERD who presented to the hospital with complaints of bloody wound drainage. Patient has rt chest wound and back wounds. Labs on presentation significant for elevated BUN/Cr consistent with ESRD without hyperkalemia, acidosis, elevated lactic acid, sed rate and CRP, leukocytosis, anemia and supratherapeutic INR. Blood cultures obtained and started on broad spectrum atbs. He missed is opt HD session yesterday with his last session Wednesday 04/18. 04/21 rt chest wound with significant bleeding. IV fluids given for elevated lactate 1.ESRD History -Etiology: HTN Renal Biopsy 2005 renal failure, of undetermined etiology. All of the glomeruli examined are obliterated by total global sclerosis -Date of first HD: 2005 -Current HD unit: [facility] -Configuration Release Manager: Dr Melendez -Schedule: Fri-Fri-Fri -Time: 4.5 hrs -EDW: 114 kg -Date of last outpatient dialysis: 04/18/25 -Access: R IJ TDC 2.Electrolytes/acid-base: -Potassium >> stable >> controlled with DRYWALL SANDER 3K bath -Sodium stable -Metabolic acidosis modulated with DRYWALL SANDER and bicarb tabs 3.Blood Pressure/Volume Status: -BP 123/49 SBP 90-115 -Hypotension modulated with Midodrine 20 mg Q8 -OPT: Midodrine 10 mg PRN dialysis -EDW 114 kg, Pre-weight today 118 kg with UF goal 0-1 L ast tolerated -hypervolemia on exam with large rounder taut abd and slight taut BLE 4.Anemia Due to multiple mechanisms: -Hgb below ESRD goal -S/P RBC transfusions 04/22 -Transfuse per primary -Iron Stores 04/04: Ferritin 653 Iron 25 TIBC 180 TSAT 14 -Avoid IV iron in the setting of infection -OPT: Venofer 100 mg TIW -ANABELLA: Consider if hgb <8 or LOS >7days -OPT: Mircera 225 mcg Q2 weeks last given unknown 5.Secondary renal hyperparathyroidism: -Hyperphosphatemia above ESRD goal improved >> on Renvela >> trend value -Calcium stable -Sensipar 60 mg every day -OPT: Calcitriol 2.5 mcg TIW PLAN: -IHD today x 4.5 hours, 3 K bath UF goal 0-1L as tolerated -Next dialysis planned for Friday to resume // schedule -Continue Renvela with meals -Continue Sensipar daily -Recommend stopping Bicarb tabs, can control with DRYWALL SANDER -Recommend PRN Midodrine with dialysis to support BP to allow for volume removal Standard ESRD recommendations and precautions: - Strict IANDOs and Daily weight - Consider a RENAL Diet for HD patients - Fluid restriction < 1 L - Start Nephrocap or other renal multivitamin to replace water-soluble vitamins lost during dialysis - Avoid Lovenox, Demerol, Morphine, K-containing IVF, Mg- or Phos- containing enemas - Dose meds GFR 10 ml/min Outpatient dialysis disposition plan: contact [phone] and ask to speak with the director of front office as needed for assistance with post-discharge arrangements. Please DO NOT schedule patient for a nephrology follow up appointment. Kidney care will be provided by the primary data warehousing engineer at their dialysis unit upon hospital discharge. SIGNATURE: Llea Soliman APRN.FLORAL ASSOCIATE PATIENT NAME: Elia Weston DATE: April 23, 2025 TIME: 6:00 PM FOR AFTER HOUR CONCERNS BETWEEN 5PM - 7AM CONTACT ON-CALL NEPHROLOGY FELLOW [phone] Disclosures: Parts of the current progress note may have been copied from a previous note. PROGRESS Observed: 04/23/2025 1:59 PM Status: COMPLETED Source: [facility] ID: [id number] Author: MARYLIN RAYMOND MD Service: General Internal Medicine Author Type: Resident Type: Progress Notes Filed: 04/23/2025 17:41 Note Text: Attestation signed by Marylin Raymond MD at 04/23/2025 5:41 PM (Updated) [facility] ([facility] STAFF PHYSICIAN NOTE OF PERSONAL INVOLVEMENT IN CARE I have reviewed the note obtained and documented and I personally participated in the mendoza components. I have discussed the case and management of the patient's care. I reviewed the medical record in detail. The following comments revise or confirm relevant mendoza components of their note. Agree with documented note. Restarted home oxy for pain Hb responded well to transfusion Vit deficiency work up as per dermatology Plastic-wound surgical service to be consulted friday SIGNATURE: Marylin Raymond MD, MPH Staff, Department of Hospital Medicine 04/23/2025 INPATIENT INTERNAL MEDICINE PROGRESS NOTE PATIENT NAME: Elia Weston ; AGE: 6 1980; 45 year old HOSPITAL ROOM: [place] [address] DATE OF SERVICE: April 23, 2025 ATTENDING PHYSICIAN: Marylin Raymond MD TIME OF SERVICE: AM Rounds SERVICE: Inpatient Medicine service Admit Date: 04/20/2025 Length of Stay: 2 Reason for Admission: Bleeding from wounds. Brief Summary Mr. 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 Patient was hospitalized in September 2024 to October 2024 for pain and bleeding from the wounds. Patient was seen by dermatology back then for his skin ulcers. Biopsy performed and was most c/w reactive ischemic changes without features of Pyoderma Gangrenosum or Calciphylaxis. Tissue culture that time didn't show growth. Interval Events/Subjective: - Overnight: No reported acute events - Hemodynamically stable with overall good BP control. Maintained good oxygen saturation on RA - He complained of back pain in the locations of the ulcers especially after stopping the pain medications as he mentioned. Brief Plan for Today: - Oxycodone 10 mg Q 4 hrs. - Plastic Surgery consultation on Friday04/25/2025 for possible debridement of the ulcers on the back. - Nutritional Workup for poor wound healing per dermatology consultation recommendations (e.g. vitamins A, B6, B9, B12, folate, C, D, zinc, iron, essential fatty acids) - Vitals: SBP 92-119, HR 58-93, SpO2 99-100%, Temp 36.5-37.3 Objective: BP: 96/70 Temp: 36.6 ?C (97.9 ?F) Temp src: Oral Pulse: 87 Resp: 17 O2 Therapy: Room Air SpO2: 99 % Date 04/22/25 0700 - 04/23/25 0659 04/23/25 0700 - 04/24/25 0659 Shift 5483-1501 0331-8060 2139-3972 24 Hour Total 5841-9551 5710-3186 3953-4703 24 Hour Total INTAKE PO 240 240 PO 240 240 IV 50 50 100 Volume (mL) (piperacillin-tazobactam iv piggyback 3.375 g in dextrose (iso-osmotic) 50 mL (ZOSYN)) 50 50 100 Blood Products 720 720 Infusion Complete Volume (mL) (RBC Transfusion Instruction) 376 376 Infusion Complete Volume (mL) (RBC Transfusion Instruction) 344 344 Shift Total 770 50 820 240 240 OUTPUT Urine 0 0 Void (ml) 0 0 # of BMs Number of BMs 0 x 0 x 0 x 0 x Shift Total 0 0 Weight (kg) 115.6 115.6 115.6 115.6 115.6 115.6 115.6 115.6 Physical Exam General: with Back pain. AANDOx3 Cardiovascular: No murmurs Respiratory: Couldn't do examination properly because the patient was on CPAP and in pain. Abdomen: Not assessed. Genitourinary: No CVA tenderness. No suprapubic tenderness. Extremities: Not assessed Psych: Normal affect, conversant. Lines, Drains, and Airways Line Duration Dialysis / Apheresis Double Lumen External Facility Tunneled Right -- days Peripheral Left Forearm 20 Gauge -- days Active Hospital Problems Diagnosis Bleeding from open wound of chest wall, right, initial encounter Open chest wound, right, sequela Unknown etiology Open chest wound, left, sequela Unknown etiology Back wound, unspecified laterality, sequela - Mid Back - Unknown Etiology - POA - Right Upper Back - Unknown Etiology - POA Open wound of abdomen Unknown Etiology Open wound of right thigh Unknown Etiology Wounds, multiple Anemia due to multiple mechanisms Hemorrhage from open wound of left chest wall Ulcers, venous (HCC) Status post Maze operation for atrial fibrillation 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 Acquired hypothyroidism Adjustment disorder with depressed mood Acute on chronic blood loss anemia Supratherapeutic INR S/P MVR (mitral valve replacement) History: MR Assessment: 08/21/2021: OnX + posterior mitral annulus patch with bovine pericardial + Left CryoMAZE + Left atrial appendage ligation Plan: ASA, start Coumadin 08/24, hep gtt History of non-ST elevation myocardial infarction (NSTEMI) ESRD on hemodialysis (HCC) Atrial fibrillation (HCC) on Coumadin and Amiodarone Secondary hyperparathyroidism, renal (HCC) Reportedly elevated PTH High PhxCa ratio in the past Now with worsening metastatic calcifications Will recheck Ca, PO4, Vitamin D, and PTH Continue phosphate binders If PTH elevated, ? Need to calcimemtics to suppress the PTH Will discuss further with the nephrology team MEDICATIONS Current Facility-Administered Medications Medication Dose Route Frequency vancomycin dosing and monitoring per pharmacy OTHER As Directed NaCl 0.9% iv flush bag 20 mL INTRAVENOUS PRN acetaminophen 650 mg tab(s) (TYLENOL) 650 mg ORAL q 6 H PRN polyethylene glycol 3350 17 g packet 17 g ORAL DAILY PRN aspirin 81 mg chewable tab(s) 81 mg ORAL DAILY midodrine 20 mg tab(s) (PROAMATINE) 20 mg ORAL q 8 H cinacalcet 60 mg tab(s) (SENSIPAR) 60 mg ORAL DAILY piperacillin-tazobactam iv piggyback 3.375 g in dextrose (iso-osmotic) 50 mL (ZOSYN) 3.375 g INTRAVENOUS q 12 HR iv contrast (radiology procedure) INTRAVENOUS DIRECTED PRN sodium bicarbonate 650 mg tab(s) 650 mg ORAL TID sevelamer carbonate 800 mg tab(s) (RENVELA) 800 mg ORAL TID w MEALS vancomycin iv piggyback 1 g in D5W 200 mL (VANCOCIN) 1 g INTRAVENOUS ONCE oxyCODONE IR 10 mg tab(s) (ROXICODONE) 10 mg ORAL q 4 H PRN Labs: Glucose control: Recent Labs 04/21/25 2210 PCGLUCOSE 87 CBC: Recent Labs 04/23/25 1237 04/22/25 1044 04/22/25 0134 04/21/25 1108 04/21/25 0341 04/20/25 1822 WBC 9.99 10.90 11.73* 14.79* 15.26* 13.20* HB 8.2* 6.9* 7.7* 7.3* 8.6* 9.5* HCT 26.4* 23.6* 25.3* 25.0* 28.4* 31.3* PLT 323 297 307 355 416* 373 MCV 91.0 91.5 88.5 93.6 91.9 92.3 RDWCV 19.6* 20.9* 20.6* 20.3* 20.2* 20.6* NEUTP -- -- -- -- -- 69.5 ABSNEUT -- -- -- -- -- 9.18* LYMPHP -- -- -- -- -- 15.2 MONOP -- -- -- -- -- 12.6 EODINP -- -- -- -- -- 1.3 COAG: Recent Labs 04/22/2513404/21/25110704/21/2534004/20/25 1822 APTT -- 62.7* -- 43.3* INR 3.9* 5.1* 4.3* 3.3* BMP: Recent Labs 04/23/25123604/22/2513504/21/25110704/21/2534004/20/25 1822 GLUC 94 96 85 92 107* NA 136 139 137 135* 138 K 4.3 4.5 4.4 4.5 4.1 CHLOR 94* 99 95* 95* 97* CO2 25 25 18* 15* 19* ANION 17* 15 24* 25* 22* BUN 29* 17 54* 52* 50* CREAT 7.96* 5.68* 12.66* 12.27* 11.59* CHEM: Recent Labs 04/23/25123604/22/2513504/21/25110704/21/2534004/20/25 1822 ALB 3.1* 3.1* 3.1* 3.3* 3.4* TPROT -- -- 7.7 8.6* 8.9* CA 8.3* 9.4 9.4 9.8 9.7 MG -- -- 2.3 2.5* 2.5* HEPATIC: Recent Labs 04/21/25110704/21/2534004/20/25 1822 ALKPHOS 151* 167* 178* ALT 9* 10 10 AST 16 22 17 TBILI 0.4 0.4 0.4 URINALYSIS:No results for input(s): PH, SPGR, UGLUC, UBILI, UKET, UHB, UPROT, UROBIL, UWBC, SSA in the last 168 hours. Invalid input(s): NITR CARDIAC: No results for input(s): CKTEST, CKMB, CKMBP, TROPT, PBNP in the last 168 hours. MICROBIOLOGY: Positive Micro-30 Days No results found for the last 720 hours. Imaging: CXR 04/21/25: TDC with tip in RA. Increase of perihilar and basilar opacities with volume loss, suggesting atelectasis, possible underlying edema/inflammation. Blunting of L CP angle, which may represent tiny effusion or pleural thickening. Assessment AND Plan: Elia Weston is a 45 year old male with extensive PMH, significant for ESRD on HD (MWF) last session 04/18 (skipped Friday since he came to ED), CAD s/p CABG, severe MS s/p MVR on Warfarin, pAfib s/p maze procedure and RADHA clip and chronic chest/abdominal/back wounds (3 years) likely secondary to ischemia in context of SVC syndrome and multiple thrombosis, who presented to the ED with 1-day of left chronic chest wound bleeding. Admitted for management of bleeding, and on transfer to [facility], patient began to have significant bleeding from R chest wound. Continuous pressure was applied and bleeding stopped. Now s/p FFP and RBC transfusions as appropriate. Started on Vanc/Zosyn given elevated ESR/CRP, pending further imaging to evaluate for underlying infection. Dermatology and wound care consulted. IR consulted to evaluate for possible intervention given bleeding from chest wall venous ulcers. 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 Hx of hemorrhagic shock from bleeding abdominal wounds - presenting with acute worsening of pain and bleeding from wounds. Denies purulent discharge from wounds . - Leukocytosis + Elevated CRP 22.1 and ESR 133 + Elevated lactate on presentation; concerned for infected wounds/soft tissue infection - On admission, acute rise in lactate in light of acute significant bleeding and drop in HGB (8.6 from 9.5 in ED) likely secondary to hypovolemia, also missed dialysis - CT venogram on 10/19/24 with b/l brachiocephalic stenosis w b/l subclavian vein occlusion, extensive venous collaterals - 10/22/24: Venoplasty completed by IR, removed L femoral TDC, exchanged R TDC - blood cultures 04/20/25 with NG1D x2 - AMET for hypotension 80/50, s/p 500 cc LR bolus, scheduled midodrine with improved repeat 102/63 - lactate 2.4 from 1.7, improved from 3.2 at admission PLAN: - Continue IV vancomycin and IV zosyn - Derm conuslt: Nutritional workup (ordered), and recommended plastic surgery consult for the back ulcers. - pending CT Chest and CT A/P with contrast to evaluate possible underlying soft tissue infection - pain control with oxycodone 10 mgorally q 4 hrs PRN - IR consulted for possible intervention. Plan for venoplasty with Dr Issa on 04/25/2025, ok to do procedure with therapeutic INR 2.5-3.5. - Cautious fluid resuscitation in light of acute bleeding and ESRD anuric on HD #ESRD on HD via Right TDC #Chronic Hypotension #Secondary Hyperparathyroidism - iHD at [facility] through R. Tunneled HD catheter MWF - Last dialysis session Friday04/18/2025; missed Fri session because he presented to [facility] ED - anuric at baseline per patient - Serum P=9.7 - completed HD 04/21 PLAN: - nephrology consulted: > HD done on Sat 04/23, with plan to resume MWF HD schedule - Continue Sensipar, renvela with meals - continue home Midodrine 20mg daily #CAD s/p CABG #Severe MS s/p mechanical MVR on coumadin #Paroxysmal Afib s/p multiple DCCV s/p Maze procedure + RADHA clip (07/2021) #Supratherapeutic INR - atrial fibrillation and severe mitral stenosis s/p mechanical mitral valve replacement with On-x valve (INR goal 2.5-3.5), Maze procedure and RADHA clip on 08/21/2021. - Goal INR 2.5- 3.5; on warfarin 2.5 mg every day; last dose of warfarin Thursday 04/19 - INR elevated to 5.1 on admission, improved to 3.9 s/p 2u FFP 04/21 PLAN: - continue holding warfarin, can consider starting heparin gtt - Daily INR #Anemia of Chronic Disease/ESRD - Baseline hemoglobin 9-11 - iron studies 12/2024: iron 33, TIBC 156, Iron sat 21, ferritin 1327 - Hgb dropping iso bleeding wounds, as above. - received 1u pRBC 04/21, Hgb from 7.3 -> 7.7 post-transfusion - Hgb 6.9 on 04/22 PLAN: - will give additional 2u pRBC - Hgb goal >8 - chronic wound mgmt, as above #Code status - Full # Diet - NPO # VTE PPx - holding iso bleeding wounds # Dispo Planning - Pending clinical course Bowel regimen: Diet: DVT Prophylaxis: Code Status: Code Status: Full Code Disposition: * Some portions of this note may have been copied from the last note. However, all sections have been modified, edited or addended by me after thorough review. These recommendations and plan are not final until co-signed by the attending physician Marylin Raymond MD. Caitlin Jurado MD Internal Medicine Resident, PGY-1 April 23, 2025 2:07 PM RENAL FUNC 1999 PNL SERPL Collected: 12:37 PM Status: F Source: [facility] Order Comment: Specimen Type : BLOOD SPECIMEN Ordering Facility: [facility] Address: [address] [place] [address] TYPE CODE TESTS RESULT OUT OF RANGE REFERENCE UNITS LAB 1751-7(LOINC) Albumin SerPl-mCnc 3.1 Low 3.9-4.9 g/dL LAB 64405-7(LOINC) Calcium SerPl-mCnc 8.3 Low 8.5-10.2 mg/dL LAB 2777-1(LOINC) Phosphate SerPl-mCnc 5.3 High 2.7-4.8 mg/dL LAB 2345-7(LOINC) Glucose SerPl-mCnc 94 74-99 mg/dL Result Comment: The [place] Diabetes Association (ADA) provides guidance for cutoff values for fasting glucose and random glucose. The ADA defines fasting as no caloric intake for at least 8 hours. Fasting plasma glucose results between 100 to 125 mg/dL indicate increased risk for diabetes (prediabetes). Fasting plasma glucose results greater than or equal to 126 mg/dL meet the criteria for diagnosis of diabetes. In the absence of unequivocal hyperglycemia, results should be confirmed by repeat testing. In a patient with classic symptoms of hyperglycemia or hyperglycemic crisis, random plasma glucose results greater than or equal to 200 mg/dL meet the criteria for diagnosis of diabetes. Reference: Standards of Medical Care in Diabetes 2016, [place] Diabetes Association. Diabetes Care. 2016.39(Suppl 1). LAB 3094-0(LOINC) BUN SerPl-mCnc 29 High 9-24 mg/dL LAB 2160-0(LOINC) Creat SerPl-mCnc 7.96 High 0.73-1.22 mg/dL LAB 2951-2(LOINC) Sodium SerPl-sCnc 136 136-144 mmol/L LAB 2823-3(LOINC) Potassium SerPl-sCnc 4.3 3.7-5.1 mmol/L LAB 2075-0(LOINC) Chloride SerPl-sCnc 94 Low 98-107 mmol/L LAB 202-9(LOINC) CO2 SerPl-sCnc 25 22-30 mmol/L LAB 13042-8(LOINC) Anion Gap SerPl-sCnc 17 High 8-15 mmol/L LAB 64467-3(LOINC) eGFRcr SerPlBld CKD-EPI 2020 8 Low >=60 mL/min/1. 73m??? Result Comment: Estimated Gl omerular Filtration Rate (eGFR) is calculated using the 2020 CKD-EPI creatinine equation. This equation utilizes serum creatinine, sex, and age as parameters. The creatinine assay has traceable calibration to isotope dilution-mass spectrometry. Refer to KDIGO guidelines for clinical interpretation. In patients with unstable renal function, e.g. those with acute kidney injury, the eGFR may not accurately reflect actual GFR. Performed By: #### [id number] # ### [facility] CLIA [id number] [address] [place] [address] [place] CBC PNL BLD AUTO Collected: 5 12:37 PM Status: F Source: [facility] Order Comment: Specimen Type : BLOOD SPECIMEN Ordering Facility: [facility] Address: [address] [place] [address] TYPE CODE TESTS RESULT OUT OF RANGE REFERENCE UNITS LAB 6690-2([facility]) WBC # Bld Auto 9.99 3.70-11.00 k/uL LAB 789-8(LOINC) RBC # Bld Auto 2.90 Low 4.20-6.00 m/uL LAB 718-7(INC) Hgb Bld-mCnc 8.2 Low 13.0-17.0 g/dL LAB 4544-3([facility]) Hct VFr Bld Auto 26.4 Low 39.0-51.0 % LAB 787-2([facility]) MCV RBC Auto 91.0 80.0-100.0 fL LAB 785-6(INC) MCH RBC Qn Auto 28.3 26.0-34.0 pg LAB 786-4([facility]) MCHC RBC Auto-mCnc 31.1 30.5-36.0 g/dL LAB 58336-8([facility]) RDW RBC-Rto 19.6 High 11.5-15.0 % LAB 777-3(INC) Platelet # Bld Auto 323 150-400 k/uL LAB 39448-5([facility]) PMV Bld Auto 10.5 9.0-12.7 fL LAB 771-6([facility]) nRBC # Bld Auto <0.01 <0.01 k/uL Performed By: #### [id number] # ### [facility] CLIA [id number] [address] [place] [address] [place] PROGRESS Observed: 04/23/2025 9:43 AM Status: COMPLETED Source: [facility] HNO ID: [id number] Author: DALLIN KENT RPh Service: Pharmacy Author Type: Pharmacist Type: Progress Notes Filed: 04/23/2025 09:44 Note Text: PHARMACY VANCOMYCIN DOSING NOTE Patient Name: Elia Weston Admission Date: 04/20/2025 Date of Consult: 04/23/2025 Time of Consult: 9:43 AM Indication: Skin/soft tissue infection Goal Range: 10-20 mcg/mL RECOMMENDATIONS/PLAN: Pharmacy consulted for vancomycin dosing for Elia Weston, a 45 year old male. 1. Patient is currently ordered Vancomycin dosed by level. Today is day 3 of therapy. 2. No vancomycin level has been drawn for this dosing regimen. 3. Will schedule vancomycin to 1 g with a dosing interval of once after dialysis today. 4. The next vancomycin level will be ordered for 2-3 HD sessions later unless clinically indicated sooner. (Pharmacy will order) We will follow patient renal function, vancomycin levels and doses with you during the course of therapy. Additional recommendations will appear in follow up notes. If you have any questions, please contact Clau Kent at [phone]. Age: [age] year old Allergies: ALLERGIES Allergen Reactions Gabapentin Unknown, Other: See Comments Trazodone Other: See Comments Fidgety Last 3 Encounter Wt Readings: Date: Wt: 04/20/2025 115.6 kg (254 lb 13.6 oz) 12/28/2024 118 kg (260 lb 2.3 oz) 10/11/2024 118 kg (260 lb 2.3 oz) Last 1 Encounter Ht Readings: Date: Ht: 10/11/2024 177 cm (5' 9.69) Intermittent hemodialysis Temp (24hrs), Av.9 ?C (98.5 ?F), Min:36.5 ?C (97.7 ?F), Max:37.3 ?C (99.1 ?F) - Current Temp: 36.5 ?C (97.7 ?F) Labs BUN (mg/dL) Date Value 04/22/2025 17 04/21/2025 54 (H) 04/21/2025 52 (H) Creatinine (mg/dL) Date Value 04/22/2025 5.68 (H) 04/21/2025 12.66 (H) 04/21/2025 12.27 (H) WBC (k/uL) Date Value 04/22/2025 10.90 04/22/2025 11.73 (H) 04/21/2025 14.79 (H) Vancomycin Levels: Vancomycin, result (ug/mL) Date/Time Value 04/08/2007 0400 25.8 04/07/2007 0700 8.2 Vancomycin,Random (mg/L) Date/Time Value 11/17/2012 1940 10.2 (L) 11/13/2012 1228 25.5 Vancomycin (ug/mL) Date/Time Value 06/30/2023 2138 6.0 (L) Dallin Kent [facility] PT ED Observed: 04/22/2025 4:18 PM Status: COMPLETED Source: [facility] HNO ID: [id number] Author: SANA DOMINGUEZ RPh Service: Pharmacy Author Type: Pharmacist Type: Patient Education Filed: 04/22/2025 16:19 Note Text: Heart Failure Counseling with Video Instruction Education Note Patient Name:Sagrario Weston Service Date: 04/22/2025 Service Time: 4:19 PM Heart Failure Education Provided: Patient was provided video instruction of heart failure management, activity as tolerated, signs and symptoms of heart failure/worsening heart failure, and to contact their physician if exhibits these symptoms. Video instructed patient to contact his or her HF physician if his or her weight increases or decreases more than or equal to 4 lbs from dry weight. Medication Education Provided: 1. Reason for taking medications and treatment goals. 2. Benefits of medication therapy. 3. How medications work. 4. Necessary laboratory monitoring. 5. When to take medications and what to do if a dose is missed. 6. Drug interactions (Rx, OTC, herbal) and importance of notifying healthcare provider with any medication changes. 7. Potential duration of therapy. 8. Potential side effects of medications. 9. Use of control measures if applicable. 10. Importance of regularly filling prescriptions and taking medications. 11. Proper storage of medications. Heart Failure education via video instruction was documented by nursing staff. If additional medication education is warranted, please contact the pharmacy. Current Inpatient Medications: Current Facility-Administered Medications Medication Dose Route Frequency vancomycin dosing and monitoring per pharmacy OTHER As Directed NaCl 0.9% iv flush bag 20 mL INTRAVENOUS PRN acetaminophen 650 mg tab(s) (TYLENOL) 650 mg ORAL q 6 H PRN polyethylene glycol 3350 17 g packet 17 g ORAL DAILY PRN aspirin 81 mg chewable tab(s) 81 mg ORAL DAILY midodrine 20 mg tab(s) (PROAMATINE) 20 mg ORAL q 8 H cinacalcet 60 mg tab(s) (SENSIPAR) 60 mg ORAL DAILY piperacillin-tazobactam iv piggyback 3.375 g in dextrose (iso-osmotic) 50 mL (ZOSYN) 3.375 g INTRAVENOUS q 12 HR iv contrast (radiology procedure) INTRAVENOUS DIRECTED PRN sodium bicarbonate 650 mg tab(s) 650 mg ORAL TID sevelamer carbonate 800 mg tab(s) (RENVELA) 800 mg ORAL TID w MEALS Sana Dominguez RPh CASE MGT INMAX TORO Observed: 04/22/2025 3:49 PM Status: COMPLETED Source: [facility] HNO ID: [id number] Author: VICENTA TORRES LSW Service: Care Management Author Type: Ppa Teacher Type: Care Mgt Initial Assessment Filed: 04/22/2025 15:53 Note Text: CARE MANAGEMENT: ASSESSMENT AND DISCHARGE PLAN SERVICE DATE: April 22, 2025 SERVICE TIME: 3:49 PM PCP: No primary care provider on file. 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 Attempted to Assist with AD Completion: Yes Action: Education Provided Current Living Arrangements and Support Lives with: Spouse/significant other Type of Residence: Private Residence (House) Support: Spouse/significant other How do you manage to accomplish the following: Independent: Ambulation, Bathe/Shower, Dress, Meals/Meal Prep, Going to the bathroom, Medication Management, Transportation to appointments/community Current Services/Equipment Current Post-Acute Service(s): Dialysis Current Post-Acute Service(s) Provider: LAUREN Yao Discharge Planning Patient Goal(s): General wellness, Be able to go home [place] of Choice Explained: [place] of Choice Given: No Reason Not Given: No placements necessary Are you interested in bedside delivery of your medications? Yes Discharge Planning Participant(s): Patient Patient/Family Comments: N/A Caregiver Assessment: Caregiver is ready, willing and able to meet the patient's needs as recommended by the inter-professional team: No Caregiver needed Transport at Discharge: Transportation Arrangements: Car Needs Prior to Discharge: Needs Prior to Discharge: None Post-Acute Discharge Plan: Chart reviewed and met with pt at bedside. Pt is alert and oriented, able to communicate needs. Pt reports he lives in [place] with spouse. He drove himself here and plans on driving himself home at dc. Pt is being treated for bleeding chronic wounds (chest). Dermatology following. Pt reports he uses a cane at baseline. No other DME used. Pt is active with outpatient hemodialysis: Date of first HD: 2005 -Current HD unit: [facility] -Configuration Release Manager: Dr Melendez -Schedule: Fri-Fri-Fri -Time: 4.5 hrs -Access: R IJ TDC Needs unclear. No wknd dc anticipated. No skilled needs identified at this time. CM following. Please see Treatment Team for Care Management Weekend/Holiday coverage. SIGNATURE: CANDY Flores PATIENT NAME: Elia Weston DATE: April 22, 2025 TIME: 3:49 PM CONSULT Observed: 04/22/2025 1:10 PM Status: COMPLETED Source: [facility] HNO ID: [id number] Author: KIMBERLY LYNN APRN.FLORAL ASSOCIATE Service: Wound Care Team Author Type: Nurse Practitioner Type: Consults Filed: 04/22/2025 13:51 Note Text: WOUND CARE SERVICE RACKET STRINGER CONSULT NOTE SERVICE DATE: 04/22/2025 SERVICE TIME: 914 Wound Consult (From admission, onward) Start Ordered 04/21/25 0415 Wound Care Consult ONCE Electronically Signed By: Kev Reyes MD [ ] 04/21/25 0405 CHIEF COMPLAINT: Just please be gentle with them. Regarding wounds. Subjective Patient is seen at the request of Kev Reyes MD for my opinion regarding wounds as below. My final recommendations will be communicated back to the requesting physician by way of copy of this note or shared electronic medical record. HISTORY OF PRESENT ILLNESS: Elia Weston is a 45 year old male is being seen with the admitting diagnosis of Wounds, multiple [T07.XXXA] being managed by the primary team. He has been admitted since 04/20. On assessment today the patient has multiple wounds of unknown etiology that are POA, located on the left lower abdomen, right anterior thigh, right upper back, mid back, and bilateral chest. The wounds on the left lower abdomen and right anterior thigh appear similarly - brown echeverria dry and scabbed wounds with irregular borders, no drainage or odor present, skye skin is scarred hyperpigmented dry and intact. Patient said he has had these wounds for some time- years, however he is not aware of how they started. He states they have been improving since onset. He does not use any dressings for these wounds. The wounds on the right upper back, mid back, and bilateral chest all appear similar. These wounds are all full thickness, irregular borders, wounds are covered with yellow/echeverria slough, and/or brown/echeverria eschar, open areas are red/pink. Moderate serosanguinous drainage present from these wounds, no odor. Skye skin is hyperpigmented scarred dry and intact. Patient stated that these wounds have also been present for years and since onset he states they are improving. He states he has been seen by many doctors for this in the past but does not follow at a wound center or follow regularly with any physicians. He states he has always been told to use either Vaseline gauze or Xeroform with ABD cover dressings changed daily which he has been using since onset per patient. Given the wounds are very moist on exam, discussed with the patient that these may not be the most appropriate for these wounds at this time. Discussed in detail many dressing options- first recommended Vashe wet to moist dressings however the patent declined as he did not want dressings changes done twice daily and was concerned about these getting stuck to the wound beds. Also recommended Hydrofera blue however he stated he did not feel comfortable with these dressings- he did not elaborate any further. Patient was agreeable to dressings as below to manage drainage after lengthy discussion. He is known to dermatology regarding these wounds- last seen 10/21 during previous admission. Biopsy was taken which revealed Dermal fibrosis and reactive vascular proliferation. Appears the exact etiology of these wounds remains unclear at this time. See wound documentation and photos below. REVIEW OF SYSTEMS: GENERAL: No night sweats, fever or chills HEENT: No headache, nose bleed, mouth pain or sore throat RESPIRATORY: No cough or shortness of breath CARDIOVASCULAR: No chest pain, palpitations or extremity swelling GI: Eating, drinking and taking pills adequately. No difficulty swallowing, No abdominal pain. No nausea/vomiting/diarrhea/constipation. Continent of stool. : Oliguric/anuric, receives HD NEURO: no numbness or tingling, MENON SKIN: No rash or itching. See wound documentation. PAST MEDICAL HISTORY Diagnosis Date Anemia of chronic disorder Anuria Atrial fibrillation (HCC) 12/02/2018 on Coumadin and Amiodarone BMI 40.0-44.9, adult (HCC) ESRD (end stage renal disease) on dialysis (HCC) 2005 ESRD from HTN Dialysis [facility] [phone] Essential hypertension, benign 1998 EKG 09/30 NL. Hearing loss of both ears History of mitral valve stenosis Hx of bacterial endocarditis Hyperparathyroidism due to end stage renal disease on dialysis (HCC) Kidney disease 2005 ESRD due to HTN; on IHD since 2005 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 and scoliosis h/o this 3 y. Dx by xray. Mechanical complication of arteriovenous fistula surgically created (HCC) Mechanical complication of dialysis catheter ([facility]) Mitral valve disease Morbid obesity (HCC) MS (mitral stenosis) 10/08/2018 Transesophageal US YEIMY on CPAP Paroxysmal atrial fibrillation ([facility]) PE (pulmonary thromboembolism) ([facility]) Pelvic mass Pseudoaneurysm of AV hemodialysis fistula ([facility]) Wound of right side of back from friction/rubbing of jacket, goes to wound care center in [place] PAST SURGICAL HISTORY Procedure Laterality Date ARTERIOVENOUS FISTULA Left 08/29/2010 CAPSULE ENDOSCOPY 07/01/2023 CARDIOVERSION-ELECTIVE N/A 12/03/2018 200 joules synchronized - successful COLONOSCOPY 07/01/2023 EGD 06/27/2023 HERNIA REPAIR HX PAST SURGICAL HISTORY OF 08/29/2010 dialysis fistula left arm PAST SURGICAL HISTORY OF Right 03/2019 Right leg femoral vein to superficial femoral artery loop graft mid thigh REPAIR CLEFT LIP RMVL LEANN CVC W/O SUBQ PORT/TOBACCO PREVENTION HEALTH EDUCATOR 01/17/2013 SHX CARDIAC RADIOFREQUENCY ABLATION 08/21/2021 s/p Maze procedure SHX MITRAL VALVE REPLACEMENT 08/21/2021 Social History Tobacco Use Smoking status: Never Smokeless tobacco: Never Vaping Use Vaping status: Never Used Substance Use Topics Alcohol use: No Drug use: No FAMILY HISTORY Adopted: Yes Problem Relation Age of Onset None Mother None Father Aneurysm No Family History MEDICATIONS: Current Facility-Administered Medications Medication Dose Route Frequency vancomycin dosing and monitoring per pharmacy OTHER As Directed NaCl 0.9% iv flush bag 20 mL INTRAVENOUS PRN acetaminophen 650 mg tab(s) (TYLENOL) 650 mg ORAL q 6 H PRN polyethylene glycol 3350 17 g packet 17 g ORAL DAILY PRN aspirin 81 mg chewable tab(s) 81 mg ORAL DAILY midodrine 20 mg tab(s) (PROAMATINE) 20 mg ORAL q 8 H cinacalcet 60 mg tab(s) (SENSIPAR) 60 mg ORAL DAILY piperacillin-tazobactam iv piggyback 3.375 g in dextrose (iso-osmotic) 50 mL (ZOSYN) 3.375 g INTRAVENOUS q 12 HR iv contrast (radiology procedure) INTRAVENOUS DIRECTED PRN sodium bicarbonate 650 mg tab(s) 650 mg ORAL TID sevelamer carbonate 800 mg tab(s) (RENVELA) 800 mg ORAL TID w MEALS ALLERGIES Allergen Reactions Gabapentin Unknown, Other: See Comments Trazodone Other: See Comments Fidgety Objective PHYSICAL EXAM: BP 113/62 Pulse 89 Temp (Src) 98.1 (Oral) Resp 18 Wt 254 lb 13.6 oz (115.6kg) SpO2 98% O2 Therapy: Room Air GENERAL: No acute distress; alert and oriented x 3 HEENT: Normocephalic, atraumatic. Moist mucous membranes. NEURO: AANDO x 3, moves all extremities with no apparent weakness, assist of 1 for bed mobility SKIN: Skin color, texture, turgor normal, no suspicious rashes or lesions. Alex score 19 per nursing. See wound documentation. CARDIOVASCULAR: Pedal pulses +, capillary refill < 3 seconds, skin warm on bilateral LE, no edema GI: Continent of stool, no stool present on exam today : Oliguric/anuric, receives HD, no urine present on exam today Presenting wound information: Wound 06/24/23 1640 Other (Comment) Back Mid (Active) Assessments 04/22/2025 9:40 AM Wound Image Site Assessment Eschar;Brown;Sloughing;Yellow;Echeverria;Red;[place];Purple Skye-Wound Assessment Hyperpigmented;Scarred;Dry;Intact Shape Irregular- multiple areas documented as one Drainage Description Serosanguineous Drainage Amount Scant Odor None Skye-Wound Treatment Skin Prep Treatments Cleansed Dressing Xeroform;Abdominal Dressing Dressing Changed New Dressing Status Clean;Dry;Intact Wound 04/21/25 0400 Other (Comment) Chest Right (Active) Assessments 04/22/2025 10:08 AM Wound Image Site Assessment Eschar;Brown;Sloughing;Yellow;Red;[place] Skye-Wound Assessment Hyperpigmented;Scarred;Dry;Intact Shape irregular Wound Length (cm) 8 cm Wound Width (cm) 8 cm Wound Surface Area (cm2) 64 cm2 Wound Depth (cm) 0.4 cm Wound Volume (cm3) 25.6 cm3 Drainage Description Serosanguineous Drainage Amount Moderate Odor None Skye-Wound Treatment Skin Prep Treatments Cleansed Dressing Xeroform;Abdominal Dressing Dressing Changed New Dressing Status Clean;Dry;Intact No associated orders. Wound Other (Comment) Chest Left (Active) Assessments 04/22/2025 10:15 AM Wound Image Site Assessment Eschar;Black;Sloughing;Yellow;Red;[place] Skye-Wound Assessment Hyperpigmented;Scarred;Dry;Intact Shape irregular Wound Length (cm) 4.6 cm Wound Width (cm) 9.7 cm Wound Surface Area (cm2) 44.62 cm2 Wound Depth (cm) 0.5 cm Wound Volume (cm3) 22.31 cm3 Drainage Description Serosanguineous Drainage Amount Moderate Odor None Skye-Wound Treatment Skin Prep Treatments Cleansed Dressing Xeroform;Abdominal Dressing Dressing Changed New Dressing Status Clean;Dry;Intact No associated orders. Wound 04/22/25 0926 Other (Comment) Abdomen Left;Lower (Active) Assessments 04/22/2025 9:34 AM Wound Image Site Assessment Brown;Echeverria;Dry (scabbed) Skye-Wound Assessment Scarred;Hyperpigmented;Dry;Intact Shape Irregular Drainage Amount None Odor None Skye-Wound Treatment Other (Comment) (Sween) Treatments Cleansed Dressing Other (Comment) (Sween) Dressing Changed New Dressing Status Intact No associated orders. Wound 04/22/25 0930 Other (Comment) Leg Anterior;Right;Upper (Active) Assessments 04/22/2025 9:30 AM Wound Image Site Assessment Brown;Echeverria;Dry (scabbed) Skye-Wound Assessment Scarred;Hyperpigmented;Dry;Intact Shape Irregular Wound Length (cm) 2.1 cm Wound Width (cm) 1.1 cm Wound Surface Area (cm2) 2.31 cm2 Wound Depth (cm) 0 cm Wound Volume (cm3) 0 cm3 Drainage Amount None Odor None Skye-Wound Treatment Other (Comment) (Sween) Treatments Cleansed Dressing Other (Comment) (Sween) Dressing Changed New Dressing Status Intact No associated orders. Wound 04/22/25 0950 Other (Comment) Back Right;Upper (Active) Assessments 04/22/2025 9:52 AM Wound Image Site Assessment Sloughing;Yellow;Echeverria;Red;[place] Skye-Wound Assessment Hyperpigmented;Scarred;Intact Shape irregular Wound Length (cm) 6 cm Wound Width (cm) 3.5 cm Wound Surface Area (cm2) 21 cm2 Wound Depth (cm) 0.5 cm Wound Volume (cm3) 10.5 cm3 Drainage Description Serosanguineous Drainage Amount Moderate Odor None Skye-Wound Treatment Skin Prep Treatments Cleansed Dressing Xeroform;Abdominal Dressing Dressing Changed New Dressing Status Clean;Dry;Intact No associated orders. DATA Diagnostic tests reviewed for today's visit: Wound photo Most recent labs and imaging results. Impression/Recommendations Impression - Left Lower Abdomen - Unknown Etiology - POA - Right Upper Anterior Leg - Unknown Etiology - POA - Right Upper Back - Unknown Etiology - POA - Right Chest - Unknown Etiology - POA - Left Chest - Unknown Etiology - POA - Mid Back - Unknown Etiology - POA Recommendations - Recommend patient receives home care vs outpatient wound center follow up upon discharge for continued management of wounds. - Recommend consult to dermatology for further evaluation and management of these atypical wounds. Suspect possible pyoderma vs calciphylaxis- recommend biopsy to confirm diagnosis. Plan - Left Lower Abdomen and Right Upper Anterior Leg - Apply Sween Cream to the wounds BID and as needed. - Right Upper Back, Right Chest, Left Chest, and Mid Back - Remove old dressing, cleanse the wound with Vashe and then pat dry. Apply Vashe ([place] # [id number]) saturated gauze and allow to sit on the wound for 5-10 minutes, gently remove and dry area. Apply 3M Skin Barrier or ConvaTec skin barrier wand to the skye-wound skin and allow to dry. Gently fill the wound with Aquacel and cover with an ABD. Change daily and as needed. - Obtain Keith-Bartolo heel protectors to bilateral lower extremities, to off-load heels, while in bed. (oracle number [id number]) - Obtain Medline Comfort [place] Sheet (oracle number [id number]) and Turning wedge (oracle number [id number]) to off-load patient's coccyx/ischium every 2 hours. - Obtain Seating Cushion ([place] # [id number]) and use when patient is up to chair. - Maintain patient on Isotour low air loss blower for the remainder of the admission- ordered today. Prevention - Apply Critic-aid Clear to perianal area and coccyx extending onto bilateral buttocks BID and as needed. - Off-load heels, while in bed, and off-load patient's coccyx/ischium every 2 hours. - Nutrition consult advised for optimized wound healing. - Apply ConvaTec skin barrier wand to bilateral heels and elbows daily. - WCCT will continue to follow patient. Please reconsult if wounds worsen. Barriers to Healing: Age, Body habitus, Comorbid conditions, Compliance with care regimen, Mobility, and Moisture Pressure Injury Prevention: Duct Maker on Consult, Head cushion/ positioner, Heel offloading, Heel suspension boots, Moisture management, Redistribution surface, Turn schedule, and Turning positioner/wedge Counseling Provided: Prevention Dressing/ointments Observations Follow Up: Information provided to Patient and bedside RN. WCCT will continue to follow patient. Please reconsult if wounds worsen. PHOTOGRAPHY: A photo was taken of the patient's wound(s). Photos can be found in Chart Review under the Scanned Docs tab in [email or web address]. The purpose of the photo(s) is to optimize the patient's medical care and allow a visual aid to their wound evaluation and progress. Photo was taken of: wounds Thank you for including me in the care of this patient. Please re-consult our service if further wound care needs arise. I spent a total of 80 minutes on the date of the service which included preparing to see the patient, [id number] patient care, completing clinical documentation, obtaining and/or reviewing separately obtained history, performing a medically appropriate examination, counseling and educating the patient/family/caregiver, ordering medications, tests, or procedures, and communicating with other HCPs (not separately reported). SIGNATURE: Kimberly Lynn APRN.CNP PATIENT NAME: Elia Weston DATE: April 22, 2025 TIME: 1:11 PM CONSULT Observed: 04/22/2025 12:56 PM Status: COMPLETED Source: [facility] ID: [id number] Author: NANCY PEDROZA MD Service: Dermatology Author Type: Physician Type: Consults Filed: 04/22/2025 17:10 Note Text: DERMATOLOGY INPATIENT CONSULT HISTORY AND PHYSICAL Patient Name: Elia Weston Date of Evaluation: April 22, 2025 Admission Date: 04/20/2025 Requesting Service: Internal medicine Chief Complaint: Non-healing wounds HPI: Elia Weston is a 45 year old male patient with a past medical history of ESRD on HD, HTN, Afib s/p MV replacement (on coumadin), secondary hyperparathyroidism, 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 Patient reports that wounds are better than earlier in the year, but he still has pain on left shoulder and chest. Patient reports that his INR was elevated and his wounds were bleeding. Patient reports that wounds begin as a rash. No induration. Patient reports that he tries to eat a variety of food, but does not always eat well because he has limited financial resources. The patient expressed frustration and sadness over his chronic illness and frequent hospitalizations, compounded by lack of financial resources. He endorses significant stress from his and children being uninsured. Patient was hospitalized in September 2024 to October 2024 for pain and bleeding from the wounds. Patient was seen by dermatology on September 2024 during a prior hospital admission for ulcers of his skin that had been ongoing for years. Biopsy was performed and was most c/w reactive ischemic changes without features of pyoderma gangrenosum or calciphylaxis identified. Tissue culture at that time did not show growth. Was also previously seen by dermatology in 2022 who felt wounds were related to chronic ischemia. Vital signs stable. No fevers. Current Abx: Vanc and Zosyn PERTINENT ROS: See HPI. PAST DERM HISTORY: See HPI FAMILY HISTORY: Unknown family history of skin disease. PAST MEDICAL HISTORY Diagnosis Date Anemia of chronic disorder Anuria Atrial fibrillation (HCC) 12/02/2018 on Coumadin and Amiodarone BMI 40.0-44.9, adult (HCC) ESRD (end stage renal disease) on dialysis (HCC) 2005 ESRD from HTN Dialysis [facility] [phone] Essential hypertension, benign 1998 EKG 09/30 NL. Hearing loss of both ears History of mitral valve stenosis Hx of bacterial endocarditis Hyperparathyroidism due to end stage renal disease on dialysis (HCC) Kidney disease 2006 ESRD due to HTN; on IHD since 2006 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 and scoliosis h/o this 3 y. Dx by xray. Mechanical complication of arteriovenous fistula surgically created (HCC) Mechanical complication of dialysis catheter (HCC) Mitral valve disease Morbid obesity (HCC) MS (mitral stenosis) 10/08/2018 Transesophageal US YEIMY on CPAP Paroxysmal atrial fibrillation (HCC) PE (pulmonary thromboembolism) (HCC) Pelvic mass Pseudoaneurysm of AV hemodialysis fistula (HCC) Wound of right side of back from friction/rubbing of jacket, goes to wound care center in [place] Social History Tobacco Use Smoking status: Never Smokeless tobacco: Never Vaping Use Vaping status: Never Used Substance Use Topics Alcohol use: No Drug use: No ALLERGIES: ALLERGIES Allergen Reactions Gabapentin Unknown, Other: See Comments Trazodone Other: See Comments Fidgety PHYSICAL EXAM BP 113/62 Pulse 89 Temp 36.7 ?C (98.1 ?F) Resp 16 Wt 115.6 kg (254 lb 13.6 oz) SpO2 98% BMI 36.90 kg/m? Skin type: GEN: in no acute distress Patient declines physical examination given pain with dressing changes. Reviewed photos in chart from 04/22/2025: - L chest with deep ulcer with granulation tissue at the periphery and hemorrhagic crust at the center. Worsening compared to photo from 12/04/24. - R chest with ulceration deeper than photo 09/06/24 - Back with scattered ulcerations with granulation tissue at base and hyperpigmented periphery. Hypopigmented scars with hyperpigmented periphery. Enlarged compared to photos from November 2024 and August 2024. - Abdomen with scattered ulcerations with granulation tissue at base and hyperpigmented periphery. Hypopigmented scars with hyperpigmented periphery. Improving compared to photos from August 2024. DATA: IMAGING: No pertinent imaging LABS: - CBC without leukocytosis as of 04/22 - CRP elevated 22.1 - ESR elevated 133 - Blood cultures (04/20) - NGTD BIOPSY: Punch biopsy 10/15/24 FINAL DIAGNOSIS A. Skin, chest, punch biopsy: - Dermal fibrosis and reactive vascular proliferation, see comment. APF/dkm 10/18/2024 at 1513 EST Diagnosis Comment Histologic sections display a basket-weave to compact orthokeratotic stratum corneum with focal parakeratosis overlying a markedly acanthotic and mildly spongiotic epidermis. Within the dermis, there is a superficial and deep interstitial vascular and histiocytic proliferation with collagen fibrosis and elastic fiber disarray. There is a scant perivascular mixed infiltrate including lymphocytes, histiocytes, and neutrophils. Eosinophils are not readily identified. To further evaluate this specimen, immunohistochemical and special stains were performed and compared to appropriate controls. Gram, GMS, and AFB-Christiana stains are negative for evidence of infectious organisms. A Von Kossa stain is negative for evidence of intraluminal or dermal calcium deposition. In order to further evaluate the vascular proliferation, immunohistochemical staining is performed at the [facility] on block A1 with appropriate controls. Stains for CD31 and ERG highlight the vascular endothelial cells, showing that they are mostly small and thin-walled without significant nuclear enlargement or multilayering. The clinical history and photographs are reviewed. Overall, these features are those of dermal fibrosis and a reactive vascular proliferation. These findings could be consistent with reactive ischemic changes in the correct clinical context. Features of pyoderma gangrenosum calciphylaxis are not identified, although the subcutaneous adipose tissue is minimally sampled. Clinical correlation remains essential. 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 On admission, patient had leukocytosis with elevated CRP/ESR and elevated lactate. Patient is on IV antibiotics. Currently patient is afebrile and leukocytosis has resolved. No clinical signs of infection at this time. Punch biopsy 06/26/23 revealed ulcer with dermal fibrosis, vascular ectasia, and reactive vascular proliferation - overall nonspecific findings but could be related to chronic ischemia given patient's history and clinical morphology. Punch biopsy 10/15/24 showing dermal fibrosis and a reactive vascular proliferation which is most consistent with reactive ischemic changes in the correct clinical context. Features of pyoderma gangrenosum, calciphylaxis not identified. Tissue cultures no growth on bacterial culture and NGTD on fungal/AFB. Patient denies the presence of a preceding papule or pustule that progresses to ulceration quickly. He endorses the lesions start as hyperpigmentation and skin tears. Denies painful indurated plaques in areas of ulceration prior to onset. Clinically, initial presentation is not consistent with calciphylaxis or pyoderma gangrenosum, prior biopsy is supportive of ischemic vasculopathy as likely trigger for non-healing ulcers. Pt remains afebrile without leukocytosis, low concern for infection. He reports improvement in prior wounds. Continue to favor that wounds are related to reactive ischemic changes given patient's co-morbidities (ESRD, HTN, vasculopathy). Given persistent, non-healing wounds, recommend nutritional workup given patient's diet is limited. PLAN: (Not final until signed by staff physician) - Consider nutritional workup for poorly healing wounds (e.g. vitamins A, B6, B9, B12, folate, C, D, zinc, iron, essential fatty acids) - Consider consulting plastic surgery for possible debridement of larger ulcer on the back - Agree with wound care recommendations per WOC team Patient seen and discussed with attending printed circuit board assembler, Dr. Pedroza. Vi Jarrett MD Dermatology resident 04/22/2025 12:56 PM Please use consult pager [phone], Mon-Fri 8am-5pm. Please call adzing and boring machine operator for on-call resident/pager during all other hours. Attending Note: I evaluated the patient and personally participated in the mendoza components of this encounter. I agree with the resident/student's findings and plan as documented and have discussed the case and management of the patient's care with the resident/student. The note was annotated by me as needed to reflect my direct input. Medical Complexity: chronic illness with exacerbation and/or progression Signature: Nancy Pedroza MD Date: 04/22/2025 Time: 5:06 PM PROGRESS Observed: 04/22/2025 11:01 AM Status: COMPLETED Source: [facility] HNO ID: [id number] Author: ELIJAH TO RT(R) Service: Radiology Author Type: Technologist Type: Progress Notes Filed: 04/22/2025 11:02 Note Text: Radiology Service Progress Note DATE OF SERVICE: April 22, 2025 TIME: 11:01 AM PATIENT IDENTITY VERIFICATION COMPLETED USING TWO (2) STANDARD IDENTIFIERS: Name and Date of confirmed by patient verbally and Name and Date of confirmed by identification band. FALL SCREENING: Has the patient had 2 falls in the last year or 1 fall with injury or currently using an Ambulatory Assistive Device (Walker, Cane, Wheelchair, Crutches, etc.)? Inpatient: Screened on floor PATIENT GENDER DATA: Assigned male at PATIENT RELEVANT IMPLANT DATA REVIEWED: Yes PATIENT PRESENTS WITH AN IMPLANTABLE OR ATTACHED EMBEDDED SOFTWARE ARCHITECT: No ALLERGIES: Reviewed and unchanged CONTRAST ALLERGY: NO. EXAM: CT -CONTRAST INDUCED NEPHROPATHY RISK FACTORS: Not applicable CREATININE: Creatinine Date Value Ref Range Status 04/22/2025 5.68 (H) 0.73 - 1.22 mg/dL Final 04/21/2025 12.66 (H) 0.73 - 1.22 mg/dL Final 04/21/2025 12.27 (H) 0.73 - 1.22 mg/dL Final Estimated Glomerular Filtration Rate Date Value Ref Range Status 04/22/2025 12 (L) >=60 mL/min/1.73m? Final Comment: Estimated Glomerular Filtration Rate (eGFR) is calculated using the 2020 CKD-EPI creatinine equation. This equation utilizes serum creatinine, sex, and age as parameters. The creatinine assay has traceable calibration to isotope dilution-mass spectrometry. Refer to KDIGO guidelines for clinical interpretation. In patients with unstable renal function, e.g. those with acute kidney injury, the eGFR may not accurately reflect actual GFR. eGFR- Date Value Ref Range Status 11/08/2021 12 Final P.O.C.T. RESULTS: POC done: Yes, See Lab Tab April 22, 2025 TREATMENT: N/A PERIPHERAL IV DATA: Inpatient - refer to [facility] documentation RADIOLOGY DEPARTMENT: CT; Exam(s) Completed: Chest Abdomen Pelvis SIGNATURE: Elijah To RT(R) PATIENT NAME: Elia Weston DATE: April 22, 2025 TIME: 11:[address] ABD/PEL W IVCON Observed: 04/22/2025 11:01 AM Status: F Source: [facility] * * *Final Report* * * DATE OF EXAM: Apr 22 2025 11:01AM [facility] [place] 0530 - CT ABD/PEL W IVCON / PROCEDURE REASON: chronic skin wounds, concern for abscess * * * * Physician Interpretation * * * * EXAMINATION: CT ABDOMEN AND PELVIS WITH IV CONTRAST CLINICAL HISTORY: 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 Skin biopsy showed dermal fibrosis and a reactive vascular proliferation which is most consistent with reactive ischemic changes in the correct clinical context. For this admission, has Leukocytosis + Elevated CRP/ESR + Elevated lactate on presentation. Evaluate for possible underlying soft tissue infection and abscess TECHNIQUE: CT of the abdomen and pelvis was performed using standard technique, scanning from just above the dome of the diaphragm to the symphysis pubis. MQ: CTAP_3 Contrast: IV: 100 ml of Omnipaque 350 PO: None. CT Radiation dose: Integrated Dose-length product (DLP) for this visit = 2348 mGy*cm. CT Dose Reduction Employed: Automated exposure control (AEC) COMPARISON: CTA 10/17/24. RESULT: Liver: No mass. Biliary: No bile duct dilation. Dependent gallbladder sludge. Spleen: No mass. No splenomegaly. Pancreas: No mass or duct dilation. Adrenals: No mass. Kidneys: Bilateral atrophy. Bilateral nonobstructing punctate calculi. Multiple bilateral cysts. GI tract: No dilation or wall thickening. Colonic diverticulosis without diverticulitis. The appendix is normal. Lymph nodes: Borderline enlarged bilateral inguinal lymph nodes, similar to prior. Mesentery/Peritoneum: No ascites or mass. Retroperitoneum: No mass. Vasculature: - Abdominal aorta and iliac arteries: Atherosclerotic calcifications without aneurysm. - Celiac and SMA: Patent without stenosis. - Portal venous system (SMV, splenic vein, portal vein and branches): Patent. - Hepatic veins: Incompletely opacified, likely due to early phase of enhancement. - Calcification noted in distal IVC, bilateral common iliac veins, and bilateral external iliac veins, likely due to chronic thrombotic disease. Pelvis: No mass, ascites or fluid collection. Urinary bladder is mostly decompressed. Diffuse calcification of the spermatic cord vasculature. Bones/Soft Tissues: Diffuse body wall collaterals are seen in the anterior, lateral and posterior subcutaneous tissue, right greater than left, similar to prior. Some of these collaterals in the left abdominal wall are calcified. No drainable fluid collection in the subcutaneous tissue. Degenerative changes, including of lumbar spine. Severe bilateral sacroiliitis. Stable bulky soft tissue calcification at the right pubis likely related to chronic kidney disease. Lower thorax: A chest CT performed will be reported separately. Localizer images: No additional findings. IMPRESSION: No abdominal or pelvic subcutaneous fluid collection or gas. Redemonstrated diffuse subcutaneous extensive abdominal wall collaterals, similar to prior CTA from 10/17/2024. Residential Driver: AZAM Transcribe Date/Time: Apr 22 2025 11:45A Dictated by : CARLY WRIGHT MD This examination was interpreted and the report reviewed and electronically signed by: JEFF JERRY MD on Apr 22 2025 12:54PM EST [id number] CT CHEST W IVCON Observed: 04/22/2025 11:01 AM Status: F Source: [facility] * * *Final Report* * * DATE OF EXAM: Apr 22 2025 11:01AM [facility] [place] 0539 - CT CHEST W IVCON / PROCEDURE REASON: chronic skin wounds, concern for abscess * * * * Physician Interpretation * * * * EXAMINATION: CHEST CT WITH CONTRAST CLINICAL HISTORY: 45 year old male with an extensive PMH significant for ESRD on HD (MWF) last session 04/18 (skipped Friday since he came to ED), CAD s/p CABG, severe MS s/p MVR, pAfib s/p maze procedure and RADHA clip and chronic chest/abdominal/back wounds (3 years) likely secondary to ischemia in context of SVC syndrome and multiple thrombosis presenting to ED for same day duration of left chronic chest wound bleeding. Technique: Spiral CT acquisition of the chest from the thoracic inlet to the upper abdomen following IV contrast. MQ: CTCW_6 Contrast: 100 mL Omnipaque [address] Radiation dose: Integrated Dose-length product (DLP) for this visit = 2348 mGy*cm CT Dose Reduction Employed: Automated exposure control (AEC) Comparison: 10/19/2024 RESULT: Limitations: None. Lines, tubes, and devices: Right IJ venous catheter terminates in the right atrium. Lung parenchyma and airways: Few patchy groundglass opacities are noted in both lungs, which may be related to mild pulmonary edema. Linear atelectasis/scarring is noted at the left lung base. A 2 mm nodule in the right upper lobe is new and is most likely inflammatory, image 37. Pleural space: No pleural effusion. No pleural thickening. Lower neck, lymph nodes, and mediastinum: The imaged thyroid gland is remarkable for calcified nodules in both lobes of thyroid gland. Few subcentimeter to borderline enlarged mediastinal and hilar lymph nodes are likely reactive. Few mildly enlarged axillary lymph nodes are unchanged and are likely reactive. The esophagus is nondistended. Heart, pericardium, and thoracic vessels: The thoracic aorta is normal in caliber. The central pulmonary arteries are mildly prominent, which could be seen with pulmonary hypertension (the main pulmonary artery measures 30 mm). There is wall calcification of the right main pulmonary artery and the right interlobar pulmonary artery, which could be related to chronic thromboembolic disease. The patient is status post mitral valve replacement and left atrial appendage clip placement. Moderate mitral annular calcification is noted. Cardiac chambers are normal in size. Mild coronary calcifications are noted. No pericardial effusion is noted. Both innominate veins are small in caliber and are likely subtotally/totally excluded. Also noted is stenosis of the junction of the innominate veins. There is associated retrograde opacification of the azygos vein. Fibrin sheath/calcified thrombi are noted within the right internal jugular vein, both innominate and both subclavian veins. Bones and soft tissues: The patient is status post median sternotomy. Extensive chest wall collaterals are noted. Few areas of skin ulceration are noted. For example, in the left chest wall at image 201 and in the right chest wall at image 185. No areas of drainable fluid collection are noted. Scoliosis of the thoracolumbar spine is noted. There is resorption of the right humeral head mid anterior subluxation, partially imaged on this exam. Upper abdomen: Images of the abdomen and dictated separately. Localizer images: No additional findings. - IMPRESSION: 1. Extensive chest wall collaterals are noted bilaterally. Few areas of skin ulceration are noted. No areas of drainable fluid collection are noted. 2. Findings consistent with central venous stenoses/occlusion, as discussed in the body of report. 3. Few patchy groundglass opacities are noted in both lungs, which may be related to mild pulmonary edema. Thyroid nodule recommendation: No follow-up recommended unless deemed clinically necessary. Residential Driver: AZAM Transcribe Date/Time: Apr 22 2025 11:33A Dictated by : JAC AGUILERA MD This examination was interpreted and the report reviewed and electronically signed by: JAC AGUILERA MD on Max 25 2025 12:03PM EST [id number] CBC PNL BLD AUTO Collected: 10:44 AM Status: F Source: [facility] Order Comment: Specimen Type : BLOOD SPECIMEN Ordering Facility: [facility] Address: [address] [place] [address] TYPE CODE TESTS RESULT OUT OF RANGE REFERENCE UNITS LAB 6690-2([facility]) WBC # Bld Auto 10.90 3.70-11.00 k/uL LAB 789-8([facility]) RBC # Bld Auto 2.58 Low 4.20-6.00 m/uL LAB 718-7([facility]) Hgb Bld-mCnc 6.9 Low 13.0-17.0 g/dL LAB 4544-3([facility]) Hct VFr Bld Auto 23.6 Low 39.0-51.0 % LAB 787-2([facility]) MCV RBC Auto 91.5 80.0-100.0 fL LAB 785-6([facility]) MCH RBC Qn Auto 26.7 26.0-34.0 pg LAB 786-4([facility]) MCHC RBC Auto-mCnc 29.2 Low 30.5-36.0 g/dL LAB 15616-3([facility]) RDW RBC-Rto 20.9 High 11.5-15.0 % LAB 777-3([facility]) Platelet # Bld Auto 297 150-400 k/uL LAB 03286-6([facility]) PMV Bld Auto 10.4 9.0-12.7 fL LAB 771-6([facility]) nRBC # Bld Auto <0.01 <0.01 k/uL Performed By: #### [id number] # ### [facility] CLIA [id number] [address] [place] [address] [place] PROGRESS Observed: 04/22/2025 6:19 AM Status: COMPLETED Source: [facility] HNO ID: [id number] Author: KEV REYES MD Service: General Internal Medicine Author Type: Resident Type: Progress Notes Filed: 04/22/2025 15:04 Note Text: Attestation signed by Kev Reyes MD at 04/22/2025 3:04 PM (Updated) [facility] STAFF PHYSICIAN NOTE OF PERSONAL INVOLVEMENT IN CARE I have reviewed the progress note obtained and documented by the resident and I personally participated in the mendoza components. I have discussed the case and management of the patient's care. The following comments revise or confirm relevant mendoza components of their note. 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 Infectious disease was initially consulted for possible superimposed infection. ID recommended dermatology consult who did punch biopsy: Showing dermal fibrosis and a reactive vascular proliferation which is most consistent with reactive ischemic changes in the correct clinical context. Features of pyoderma gangrenosum, calciphylaxis not identified. Tissue cultures no growth on bacterial culture and NGTD on fungal/AFB. CT venogram chest/abdomen/pelvis with IVCON (10/19/2024): Bilateral brachiocephalic stenosis with bilateral subclavian vein occlusion without contrast opacification. Extensive venous collaterals with bilateral venous return via the azygos and hemiazygos systems. IR DR Jyoti Issa performed intervention (10/22/2024): Occlusive stenosis of the right innominate vein and super azygos SVC, tortuosity and narrowing in the central SVC/cavoatrial junction, status post successful venoplasty up to 8mm. Exchange of right-sided single-lumen tunneled LORENA catheter for a right-sided tunneled dual lumen dialysis catheter following central venoplasty, with tip in the expected location of the RIGHT ATRIUM, as detailed above. Removal of the left femoral tunneled dialysis catheter. Vascular surgery were consulted (10/21/2024): 1.Patient has had multiple access creations which have failed and findings suggestive of IVC and SVC stenosis 2.Continued dialysis through his catheter indefinitely 3. No need for further follow-up with Vascular Surgery Patient's reported that he was doing fine for the following few months. Since Jan, 2025, he started to have increased pain and was admitted in [place] 02/16-02/18/2025, received Vancomycin and Zosyn. For the past few weeks, his coumadin dosing was changed multiple times due to erratic INR. He started to notice bleeding from left chest wounds. Thus he drove to [facility] ED on 04/20 evening himself. On arrival, he was afebrile, BP 104/70, HR 100. WBC 13.20 (Nphil), Hgb 9.5, Plt 373. Lactate 2.7. Alk phos 178, Na 138, K 4.1, Mag 2.5. INR 3.3. CRP 22.1, ESR 133, In ED, he was given Tylenol, Fentanyl, Oxycodone, Midodrine and IV vancomycin. After admission to the floor, patient had an episode of significant bleeding from right chest wound. Hb dropped to 8.6, VB.27/44, Lactate 3.2. INR went up to 5.1. Patient was oriented x 3 though appeared ill, Consented for blood transfusion. 2 FFP and 1 pRBC ordered. Received hemodialysis 04/21. AMET repeatedly called for asymptomatic hypotension. 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 Continue empiric antibiotics with elevated ESR and CRP. Await dermatology consult. Continue to hold warfarin. Will start heparin gtt once bleeding controlled, hemodynamics improved and INR sub therapeutic. Spoke with IR Dr Marin: Plan for venoplasty with Dr Issa on 04/25/2025, ok to do procedure with therapeutic INR 2.5-3.5. Continue dialysis per nephrology: TTS schedule this week, Outpatient schedule MWF At high risk of sudden deterioration and possible need of MICU level of care Plan of care discussed with Patient, Family/Significant Other: , Care Management, RN, Consultants: Nephrology, IR, and Residents CARE COORDINATION: The majority of the visit was spent counseling and/or coordinating care for the patient. [id number] time was 50 minutes SIGNATURE: Kev Reyes MD DATE of SERVICE: April 22, 2025 TIME of SERVICE: 2:30 PM General Internal Medicine - Service Jeffrey Haq Progress Note From 7am to 5pm: Please page Parker Moe MD After hours 5pm to 7am: Please page on-call [phone] SERVICE DATE: 04/22/2025 SERVICE TIME: 6:19 AM Hospital Medicine/Primary Attending: Kev Reyes MD Patient Summary Interval History: - Yesterday, patient completed a session of HD. He also received 2u FFP and 1u pRBC. Overnight, AMET was called for low BP 80/50. Patient was asymptomatic, repeat BP improved to 102/63. He was given a 500 cc LR bolus, scheduled midodrine 20mg. Lactate 2.4, no active bleeding seen, INR improved to 3.9 from 5.1 - This morning, patient seen lying in bed, comfortable after receiving prn dilaudid. Denies wound bleeding, shortness of breath, or chest pain. - Vitals: Afebrile, HR 91-113, SBPs mostly in 100s with MAPs 66-90, 2 low Bps overnight 80/50 and 88/43 with MAP 51. 94-100% on RA. - Labs: CMP with Na 139, K 4.5, BUN 17, Cr improved to 5.68 from 12.66. CBC with Hgb 7.7 from 7.3, Hct 25.3, WBC improved to 11.73 from 14.79, plts 307 stable - PRN: Tylenol 650mg q6h x3, dilaudid 1mg x1 for pain Physical Exam BP 103/67 Pulse 91 Temp 36.5 ?C (97.7 ?F) (Axillary) Resp 17 Wt 115.6 kg (254 lb 13.6 oz) SpO2 98% BMI 36.90 kg/m? GENERAL: Alert, no distress, cooperative SKIN: Patient declined examination 04/22. Previously seen: R and L anterior and posterior chest wounds - chronic, bleeding, no purulent discharge. Right flank/back chronic wounds. Images scanned in chart. LUNGS: Lungs clear to auscultation bilaterally. CARDIAC: Regular rate and rhythm. Normal S1 and S2; no rubs, murmurs, or gallops ABDOMEN: Abdomen soft, non-tender, non-distended, No masses or organomegaly EXTREMITIES: No LE edema NEURO: Alert, oriented though tired, following commands Labs CBC, Coags, BMP, Mg, Phos Recent Labs 04/22/25 0136 04/22/25 0135 04/22/25 0134 04/21/25 1108 04/21/25 0341 04/20/25 1822 WBC -- -- 11.73* 14.79* 15.26* 13.20* HB -- -- 7.7* 7.3* 8.6* 9.5* HCT -- -- 25.3* 25.0* 28.4* 31.3* PLT -- -- 307 355 416* 373 INR -- 3.9* -- 5.1* 4.3* 3.3* APTT -- -- -- 62.7* -- 43.3* NA 139 -- -- 137 135* 138 K 4.5 -- -- 4.4 4.5 4.1 CHLOR 99 -- -- 95* 95* 97* CO2 25 -- -- 18* 15* 19* BUN 17 -- -- 54* 52* 50* CREAT 5.68* -- -- 12.66* 12.27* 11.59* GLUC 96 -- -- 85 92 107* CA 9.4 -- -- 9.4 9.8 9.7 MG -- -- -- 2.3 2.5* 2.5* P 4.5 -- -- 10.5* 9.7* -- Liver Function, Amylase, AND Lipase Recent Labs 04/22/25 0136 04/21/25 2303 04/21/25 1153 04/21/25 1108 04/21/25 0557 04/21/25 0341 04/20/25 2347 04/20/25 1822 TPROT -- -- -- 7.7 -- 8.6* -- 8.9* ALB 3.1* -- -- 3.1* -- 3.3* -- 3.4* ALT -- -- -- 9* -- 10 -- 10 AST -- -- -- 16 -- 22 -- 17 ALKPHOS -- -- -- 151* -- 167* -- 178* TBILI -- -- -- 0.4 -- 0.4 -- 0.4 LACT -- 2.4* 1.7 -- 3.2* 3.1* < > -- < > = values in this interval not displayed. Cardiac Enzymes ABGs Imaging CXR 04/21/25: TDC with tip in RA. Increase of perihilar and basilar opacities with volume loss, suggesting atelectasis, possible underlying edema/inflammation. Blunting of L CP angle, which may represent tiny effusion or pleural thickening. Assessment and Plan Active Hospital Problems Diagnosis Bleeding from open wound of chest wall, right, initial encounter Wounds, multiple Anemia due to multiple mechanisms Hemorrhage from open wound of left chest wall Ulcers, venous (HCC) Status post Maze operation for atrial fibrillation 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 Acquired hypothyroidism Adjustment disorder with depressed mood Acute on chronic blood loss anemia Supratherapeutic INR S/P MVR (mitral valve replacement) History: MR Assessment: 08/21/2021: OnX 25/33 + posterior mitral annulus patch with bovine pericardial + Left CryoMAZE + Left atrial appendage ligation Plan: ASA, start Coumadin 08/24, hep gtt History of non-ST elevation myocardial infarction (NSTEMI) ESRD on hemodialysis (HCC) Atrial fibrillation (HCC) on Coumadin and Amiodarone Secondary hyperparathyroidism, renal (HCC) Reportedly elevated PTH High PhxCa ratio in the past Now with worsening metastatic calcifications Will recheck Ca, PO4, Vitamin D, and PTH Continue phosphate binders If PTH elevated, ? Need to calcimemtics to suppress the PTH Will discuss further with the nephrology team Elia Weston is a 45 year old male with extensive PMH, significant for ESRD on HD (MWF) last session 04/18 (skipped Friday since he came to ED), CAD s/p CABG, severe MS s/p MVR on Warfarin, pAfib s/p maze procedure and RADHA clip and chronic chest/abdominal/back wounds (3 years) likely secondary to ischemia in context of SVC syndrome and multiple thrombosis, who presented to the ED with 1-day of left chronic chest wound bleeding. Admitted for management of bleeding, and on transfer to [facility], patient began to have significant bleeding from R chest wound. Continuous pressure was applied and bleeding stopped. Now s/p FFP and RBC transfusions as appropriate. Started on Vanc/Zosyn given elevated ESR/CRP, pending further imaging to evaluate for underlying infection. Dermatology and wound care consulted. IR consulted to evaluate for possible intervention given bleeding from chest wall venous ulcers. 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 Hx of hemorrhagic shock from bleeding abdominal wounds - presenting with acute worsening of pain and bleeding from wounds. Denies purulent discharge from wounds . - Leukocytosis + Elevated CRP 22.1 and ESR 133 + Elevated lactate on presentation; concerned for infected wounds/soft tissue infection - On admission, acute rise in lactate in light of acute significant bleeding and drop in HGB (8.6 from 9.5 in ED) likely secondary to hypovolemia, also missed dialysis - CT venogram on 10/19/24 with b/l brachiocephalic stenosis w b/l subclavian vein occlusion, extensive venous collaterals - 10/22/24: Venoplasty completed by IR, removed L femoral TDC, exchanged R TDC - blood cultures 04/20/25 with NG1D x2 - AMET for hypotension 80/50, s/p 500 cc LR bolus, scheduled midodrine with improved repeat 102/63 - lactate 2.4 from 1.7, improved from 3.2 at admission PLAN: - Continue IV vancomycin and IV zosyn, can consider d/c tomorrow pending derm recs - pending CT Chest and CT A/P with contrast to evaluate possible underlying soft tissue infection - pain control with IV dilaudid 1mg prn - wound care consulted, appreciate recs - dermatology consulted, appreciate recs - IR consulted for possible intervention, including venoplasty, appreciate recs - Cautious fluid resuscitation in light of acute bleeding and ESRD anuric on HD #ESRD on HD via Right TDC #Chronic Hypotension #Secondary Hyperparathyroidism - iHD at [facility] [place] through R. Tunneled HD catheter MWF - Last dialysis session Friday04/18/2025; missed Fri session because he presented to [facility] ED - anuric at baseline per patient - Serum P=9.7 - completed HD 04/21 PLAN: - nephrology consulted: > will do HD Sat 04/23, with plan to resume MWF HD schedule - Continue Sensipar, renvela with meals - continue home Midodrine 20mg daily #CAD s/p CABG #Severe MS s/p mechanical MVR on coumadin #Paroxysmal Afib s/p multiple DCCV s/p Maze procedure + RADHA clip (07/2021) #Supratherapeutic INR - atrial fibrillation and severe mitral stenosis s/p mechanical mitral valve replacement with On-x valve (INR goal 2.5-3.5), Maze procedure and RADHA clip on 08/21/2021. - Goal INR 2.5- 3.5; on warfarin 2.5 mg every day; last dose of warfarin Thursday 04/19 - INR elevated to 5.1 on admission, improved to 3.9 s/p 2u FFP 04/21 PLAN: - continue holding warfarin, can consider starting heparin gtt - Daily INR #Anemia of Chronic Disease/ESRD - Baseline hemoglobin 9-11 - iron studies 12/2024: iron 33, TIBC 156, Iron sat 21, ferritin 1327 - Hgb dropping iso bleeding wounds, as above. - received 1u pRBC 04/21, Hgb from 7.3 -> 7.7 post-transfusion - Hgb 6.9 on 04/22 PLAN: - will give additional 2u pRBC - Hgb goal >8 - chronic wound mgmt, as above #Code status - Full # Diet - NPO # VTE PPx - holding iso bleeding wounds # Dispo Planning - Pending clinical course Parker Moe MD PGY-1 04/22/2025 6:19 AM RENAL FUNC 2000 PNL SERPL Collected: 1:36 AM Status: F Source: [facility] Order Comment: Specimen Type : BLOOD SPECIMEN Ordering Facility: [facility] Address: [address] [place] [address] TYPE CODE TESTS RESULT OUT OF RANGE REFERENCE UNITS LAB 1751-7(LOINC) Albumin SerPl-mCnc 3.1 Low 3.9-4.9 g/dL LAB 42051-2(LOINC) Calcium SerPl-mCnc 9.4 8.5-10.2 mg/dL LAB 2777-1(LOINC) Phosphate SerPl-mCnc 4.5 2.7-4.8 mg/dL Result Comment: Result reche cked. LAB 2345-7(LOINC) Glucose SerPl-mCnc 96 74-99 mg/dL Result Comment: The [place] Diabetes Association (ADA) provides guidance for cutoff values for fasting glucose and random glucose. The ADA defines fasting as no caloric intake for at least 8 hours. Fasting plasma glucose results between 100 to 125 mg/dL indicate increased risk for diabetes (prediabetes). Fasting plasma glucose results greater than or equal to 126 mg/dL meet the criteria for diagnosis of diabetes. In the absence of unequivocal hyperglycemia, results should be confirmed by repeat testing. In a patient with classic symptoms of hyperglycemia or hyperglycemic crisis, random plasma glucose results greater than or equal to 200 mg/dL meet the criteria for diagnosis of diabetes. Reference: Standards of Medical Care in Diabetes 2016, [place] Diabetes Association. Diabetes Care. 2016.39(Suppl 1). LAB 3094-0(LOINC) BUN SerPl-mCnc 17 9-24 mg/dL LAB 2160-0(LOINC) Creat SerPl-mCnc 5.68 High 0.73-1.22 mg/dL LAB 2951-2(LOINC) Sodium SerPl-sCnc 139 136-144 mmol/L LAB 2823-3(LOINC) Potassium SerPl-sCnc 4.5 3.7-5.1 mmol/L LAB 2075-0(LOINC) Chloride SerPl-sCnc 99 98-107 mmol/L LAB 2027-9(LOINC) CO2 SerPl-sCnc 25 22-30 mmol/L LAB 30459-3(LOINC) Anion Gap SerPl-sCnc 15 8-15 mmol/L LAB 47217-7(LOINC) eGFRcr SerPlBld CKD-EPI 2020 12 Low >=60 mL/min/1. 73m??? Result Comment: Estimated Gl omerular Filtration Rate (eGFR) is calculated using the 2020 CKD-EPI creatinine equation. This equation utilizes serum creatinine, sex, and age as parameters. The creatinine assay has traceable calibration to isotope dilution-mass spectrometry. Refer to KDIGO guidelines for clinical interpretation. In patients with unstable renal function, e.g. those with acute kidney injury, the eGFR may not accurately reflect actual GFR. Performed By: #### 33043-0 # ### [facility] CLIA [id number] [address] [place] [address] [place] PT PNL PPP Collected: 04/22/2025 1:35 AM Status: F Source: [facility] Order Comment: Specimen Type : BLOOD SPECIMEN Ordering Facility: [facility] Address: [address] [place] [address] TYPE CODE TESTS RESULT OUT OF RANGE REFERENCE UNITS LAB 5902-2(LOINC) Prothrombin time 38.6 High 9.7-13.0 sec LAB 6301-6(LOINC) INR PPP 3.9 High 0.9-1.3 Result Comment: Vitamin K An tagonist (VKA) Therapeutic Range: INR 2 to 3 (Target INR of 2.5) Note: For patients treated with VKA drugs, such as warfarin, the [place] College [employer] Chest [employer]icians 2012 Guideline recommends a therapeutic INR range of 2 to 3 (target INR of 2.5). This recommendation includes high-risk patients with antiphospholipid syndrome with previous arterial or venous thromboembolism, current-generation mechanical or bioprosthetic aortic heart valve replacement. Note: Patients with mechanical aortic valve replacement and additional risk factors for thromboembolic events (atrial fibrillation, previous thromboembolism, LV dysfunction, hypercoagulable conditions) or an older generation mechanical AVR (i.e., ball in-Cage) or any mechanical MVR should have a INR therapeutic range of 2.5 to 3.5 (target INR of 3). Ranjit YOUSSEF, et al. Chest 2012, 141:7S-47S Kevin RUSHING et al. [facility] 2017, 70: 252-289 Performed By: #### 25623-4 # ### [facility] CLIA [id number] [address] [place] [address] [place] HBV SURFACE AB SER QL Collected: 2024 1:35 AM Status: F Source: [facility] Order Comment: Specimen Type : BLOOD SPECIMEN Ordering Facility: [facility] Address: [address] [place] [address] TYPE CODE TESTS RESULT OUT OF RANGE REFERENCE UNITS LAB 76878-0([facility]) HBV surface Ab Ser Ql Positive Result Comment: Consistent w ith serological evidence of immunity to Hepatitis B Virus. LAB 28871-2([facility]) HBV surface Ab Ser-aCnc 858.84 mIU/mL Result Comment: <8 mIU/mL: N o serological evidence of immunity to Hepatitis B Virus. >/= 8 to <12 mIU/mL: No serological evidence of immunity to Hepatitis B Virus. >/= 12 mIU/mL: Consistent with serological evidence of immunity to Hepatitis B Virus. Performed By: #### 5195-3, 2 2322-2 #### [facility] CLIA [id number] HBV SURFACE AG SER QL Collected: 04/22/2025 1:35 AM Status: F Source: [facility] Order Comment: Specimen Type : BLOOD SPECIMEN Ordering Facility: [facility] Address: [address] [place] [address] TYPE CODE TESTS RESULT OUT OF RANGE REFERENCE UNITS LAB 5195-3([facility]) HBV surface Ag Ser Ql Negative Negative Performed By: #### 5195-3, 2 2322-2 #### [facility] CLIA [id number] [address] [place] [address] CBC PNL BLD AUTO Collected: 1:34 AM Status: F Source: [facility] Order Comment: Specimen Type : BLOOD SPECIMEN Ordering Facility: [facility] Address: [address] [place] [address] TYPE CODE TESTS RESULT OUT OF RANGE REFERENCE UNITS LAB 6690-2(LOINC) WBC # Bld Auto 11.73 High 3.70-11.00 k/uL LAB 789-8(LOINC) RBC # Bld Auto 2.86 Low 4.20-6.00 m/uL LAB 718-7(LOINC) Hgb Bld-mCnc 7.7 Low 13.0-17.0 g/dL LAB 4544-3(LOINC) Hct VFr Bld Auto 25.3 Low 39.0-51.0 % LAB 787-2(LOINC) MCV RBC Auto 88.5 80.0-100.0 fL LAB 785-6(LOINC) MCH RBC Qn Auto 26.9 26.0-34.0 pg LAB 786-4(LOINC) MCHC RBC Auto-mCnc 30.4 Low 30.5-36.0 g/dL LAB 04273-0(LOINC) RDW RBC-Rto 20.6 High 11.5-15.0 % LAB 777-3(LOINC) Platelet # Bld Auto 307 150-400 k/uL LAB 37490-4(LOINC) PMV Bld Auto 10.2 9.0-12.7 fL LAB 771-6(LOINC) nRBC # Bld Auto <0.01 <0.01 k/uL Performed By: #### 27300-8 # ### [facility] CLIA [id number] [address] [place] [address] [place] MEDICAL RAPHAEL Observed: 04/21/2025 11:10 PM Status: COMPLETED Source: [facility] HNO ID: [id number] Author: DAVID GUZMAN APRN.CNP Service: Critical Care Author Type: Nurse Practitioner Type: Chg in Clinical Condition Filed: 04/21/2025 23:14 Note Text: MEDICAL EMERGENCY TEAM AMET CODE STATUS: Code Status: Full Code BACKGROUND This is a 45-year-old male with past medical history as below admitted to the hospital for multiple wounds, anemia, and sepsis. REASON FOR CALL Blood Pressure: Systolic Blood Pressure < 80 or >220 or Diastolic BP>110 ASSESSMENT Per bedside RN, manual blood pressure obtained and found to be 80/50 prompting AMET activation. Notably patient denies dizziness, chest pain, shortness of breath. On repeat checks at bedside upon arrival, blood pressures are stable all with systolics greater than 100. EKG without acute changes He is receiving FFP for elevated INR and has completed blood transfusion for anemia He had dialysis today, unsure of exact UF INTERVENTIONS 500 mL IVF bolus Stat CBC and INR after blood products are transfused Stable at the conclusion of this call DISPOSITIONS Improved Primary Team Notified: Yes PAST MEDICAL / SURGICAL HISTORY PAST MEDICAL HISTORY Diagnosis Date Anemia of chronic disorder Anuria Atrial fibrillation ([facility]) 12/02/2018 on Coumadin and Amiodarone BMI 40.0-44.9, adult ([facility]) ESRD (end stage renal disease) on dialysis ([facility]) 2005 ESRD from HTN [phone] Essential hypertension, benign 1998 EKG 09/30 NL. Hearing loss of both ears History of mitral valve stenosis Hx of bacterial endocarditis Hyperparathyroidism due to end stage renal disease on dialysis ([facility]) Kidney disease 2005 ESRD due to HTN; on IHD since 2005 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 and scoliosis h/o this 3 y. Dx by xray. Mechanical complication of arteriovenous fistula surgically created ([facility]) Mechanical complication of dialysis catheter ([facility]) Mitral valve disease Morbid obesity ([facility]) MS (mitral stenosis) 10/08/2018 Transesophageal US YEIMY on CPAP Paroxysmal atrial fibrillation (HCC) PE (pulmonary thromboembolism) (HCC) Pelvic mass Pseudoaneurysm of AV hemodialysis fistula (HCC) Wound of right side of back from friction/rubbing of jacket, goes to wound care center in [place] PAST SURGICAL HISTORY Procedure Laterality Date ARTERIOVENOUS FISTULA Left 08/29/2010 CAPSULE ENDOSCOPY 07/01/2023 CARDIOVERSION-ELECTIVE N/A 12/03/2018 200 joules synchronized - successful COLONOSCOPY 07/01/2023 EGD 06/27/2023 HERNIA REPAIR HX PAST SURGICAL HISTORY OF 08/29/2010 dialysis fistula left arm PAST SURGICAL HISTORY OF Right 03/2019 Right leg femoral vein to superficial femoral artery loop graft mid thigh REPAIR CLEFT LIP RMVL LEANN CVC W/O SUBQ PORT/TOBACCO PREVENTION HEALTH EDUCATOR 01/17/2013 SHX CARDIAC RADIOFREQUENCY ABLATION 08/21/2021 s/p Maze procedure SHX MITRAL VALVE REPLACEMENT 08/21/2021 PERTINENT PHYSICAL EXAM and INITIAL ASSESSMENT (For vital signs prior and during MET call, see nursing documentation) Pertinent Vital Signs at Time of MET Call: see MET note Appearance: Alert and No distress Airway Patent: Yes Breathing Evaluation: Normal Circulation Evaluation: Skin warm Neurologic Evaluation: GCS Evaluation: 4. Spontaneous, 5: Oriented 6: Obeys Motor commands Is the Level of Consciousness at Baseline: Yes Head/Eyes: PERRLA Skin: warm Lungs: respiratory effort: normal Dialysis / Apheresis Double Lumen External Facility Right (Active) No placement date or time found. Line, Drain, Airway Placed by: (!) External Facility Location: Right Peripheral 04/20/252344 Left Forearm 20 Gauge (Active) Placement Date/Time: 04/20/252344 Location: Left Insertion Site: Forearm Size: 20 Gauge Line Placed Under Ultrasound Guidance: Yes PERTINENT DIAGNOSTICS Diagnostic Tests Reviewed: Most recent labs and imaging results. Primary Team Aware/Notified: Yes CRITICAL CARE TIME: I personally spent 30 minutes directly supervising and providing non-critical care to the patient as noted above.. I have reviewed, approved and signed the paper MET note. Please refer to this for complete orders and nursing/respiratory documentation. SIGNATURE: David Guzman APRN.CNP PATIENT NAME: Elia Weston DATE: April 21, 2025 TIME: 11:10 PM PLAN OF CARE Observed: 04/21/2025 11:05 PM Status: COMPLETED Source: [facility] HNO ID: [id number] Author: LEE MORRISON MD Service: General Internal Medicine Author Type: Resident Type: Plan of Care Filed: 04/21/2025 23:38 Note Text: PLAN OF CARE SERVICE DATE: 04/21/2025 ADMISSION DATE: 04/20/2025 SERVICE TIME: 11:05 PM Post Acute Care/Discharge Plan: to be assessed Gold Reclaimer Participation in this Plan of Care: Resident: Lee Morrison MD Diagnosis/Admitted to Unit for: Patient Active Hospital Problem List: Bleeding from open wound of chest wall, right, initial encounter Date Noted: 04/21/2025 Secondary hyperparathyroidism, renal (HCC) Date Noted: 05/09/2015 ESRD on hemodialysis (HCC) Date Noted: 04/07/2019 History of non-ST elevation myocardial infarction (NSTEMI) Date Noted: 11/08/2019 S/P MVR (mitral valve replacement) Date Noted: 08/22/2021 Supratherapeutic INR Date Noted: 09/30/2022 Atrial fibrillation (HCC) Date Noted: 12/02/2018 Acute on chronic blood loss anemia Date Noted: 06/24/2023 Adjustment disorder with depressed mood Date Noted: 06/27/2023 Acquired hypothyroidism Date Noted: 03/17/2024 Acquired stenosis of superior vena cava Date Noted: 03/18/2024 Venous collateral circulation Date Noted: 03/21/2024 Status post Maze operation for atrial fibrillation Date Noted: 10/13/2024 Ulcers, venous (HCC) Date Noted: 10/13/2024 Wounds, multiple Date Noted: 04/21/2025 Anemia due to multiple mechanisms Date Noted: 04/21/2025 Hemorrhage from open wound of left chest wall Date Noted: 04/21/2025 Assessment: Nursing: Bleeding Intervention(s) Plan: Assess for Related Signs/Symptom of Bleeding Bleeding Goals/Outcomes: Patient Bleeding Controlled and Vital Signs Remain StableInability to Follow Plan of Care Intervention(s) Plan: Consults as Needed Inability to Follow Plan of Care Goals/ Outcome: Health managed care coordinator will provide every opportunity to inform the Patientt/Family Other: See comment of the risks and benefits associated with their decisions Risk for Infection Intervention(s) Plan: Assess and Administer Medications Risk for Infection Goals/Outcomes: Exhibits Increased Interest and Assume Responsibility for Patient's Own/Family Learning by Beginning to Look for Information and Ask Questions Knowledge Deficit Intervention(s) Plan: Encourage Verbalization of Questions and Concerns Knowledge Deficit Goals/Outcomes: Participate in Learning Process Pain Intervention(s) Plan: Pain Assessment, Management, Reassessment Per Scoring Tool Pain Goals/Outcomes: Exhibits Increased Interest and Assume Responsibility for Patient's Own/Family Learning by Beginning to Look for Information and Ask Questions 04/21/25 10:04 pm The team was paged for a low blood pressure reading of 80/50 mmHg, confirmed manually. Our team and the AMET team were called immediately, and we arrived within 2 minutes. Upon arrival, the patient was with the nursing staff, AED connected, and the team remained on high alert. The patient was found to be anxious but alert and oriented to person, place, and time (AANDO ?3). He expressed confusion regarding the emergency response, so we provided reassurance and explained that his blood pressure was low and that we were there to ensure his safety and deliver appropriate care. The patient denied any symptoms including dizziness, shortness of breath, or chest pain. He reported no pain other than his baseline back wound tenderness. At the time of the episode, he was receiving his first unit of Fresh Frozen Plasma (FFP). A repeat blood pressure measurement showed improvement to 102/63 mmHg. Shortly thereafter, the AMET team arrived. Orders were placed for: -Venous Blood Gas (VBG) -500 mL Lactated Ringer?s (LR) bolus -Administration of his scheduled Midodrine 20mg It was noted that the patient had undergone dialysis earlier today. According to the nephrology progress note, he experienced intermittent hypotension during dialysis, which was managed with: -Fluid boluses: 500 mL ?1 and 250 mL bolus ?1 -Midodrine 10 mg Following the assessment, the patient remained hemodynamically stable and will continue to be closely monitored for any signs of recurrent hypotension. Plan: -Midodrine 20mg -500 mL IVF bolus -Stat VBG -Receive second FFP then repeat CBC and INR DOCUMENTED BY: Lee Morrison MD PATIENT NAME: Elia Weston DATE: April 21, 2025 TIME: 11:05 PM CSN: [id number] GAS + CO PNL BLDV Collected: 11:03 PM Status: F Source: [facility] Order Comment: Specimen Type : VENOUS BLOOD SPECIMEN Ordering Facility: [facility] Address: [address] [place] [address] TYPE CODE TESTS RESULT OUT OF RANGE REFERENCE UNITS LAB 2746-6(LOINC) pH BldV 7.41 7.32-7.42 LAB 202-4(LOINC) pCO2 BldV 45 42-55 mmHg LAB 2705-2(LOINC) pO2 BldV 88 High 35-45 mmHg LAB 2711-0(LOINC) SaO2 % BldV 97 High 60-85 % LAB 1927-3(LOINC) Base excess BldV Calc-sCnc 4 High 0-2 mmol/L LAB 38273-5(LOINC) HCO3 BldV-sCnc 28 24-28 mmol/L LAB 2716-9(INC) OxyHgb MFr BldV 93 High 60-85 % LAB 2032-1(INC) COHgb MFr BldV 1.9 0.0-2.0 % Result Comment: Carboxyhemog lobin Reference Range for Smokers: 2.0-8.0% LAB 2614-6(LOINC) MetHgb MFr Bld 1.4 0.0-1.5 % LAB 2947-0(LOINC) Sodium Bld-sCnc 142 136-144 mmol/L LAB 6298-4(INC) Potassium Bld-sCnc 4.2 3.5-5.0 mmol/L LAB 01496-4(INC) Ca-I Bld-mCnc 1.03 Low 1.08-1.30 m mol/L LAB 17749-9([facility]) Ca-I adj pH7.4 BldA-sCnc 1.04 Low 1.08-1.30 mmol/L LAB 2339-0(INC) Glucose Bld-mCnc 89 60-105 mg/dL LAB 88114-8(INC) Lactate Bld-sCnc 2.4 High 0.5-2.2 mmol/L LAB 718-7(LOINC) Hgb Bld-mCnc 7.9 Low 13.0-17.0 g/dL LAB 4544-3(LOINC) Hct VFr Bld Auto 24.7 Low 39.0-51.0 % LAB VTMP TEMPERATURE, BODY 37.0 C LAB VO2TH O2 THERAPY NC = Nasal Cannula Performed By: #### 88616-2 # ### [facility] CLIA [id number] [address] [place] [address] ECG01 Observed: 04/21/2025 10:14 PM Status: F Source: [facility] Ventricular Rate : 101 BPM QRS Duration : 72 ms Q-T Interval : 378 ms QTC Calculation(Bazett) : 490 ms Calculated R Assumption : 141 degrees Calculated T Assumption : 70 degrees UNDETERMINED RHYTHM RIGHT AXIS DEVIATION LOW VOLTAGE QRS QTcB >= 480 msec ABNORMAL ECG Confirmed by MD RUANO HEBA ([id number]) on 06/19/2025 3:49:17 PM NAME : ELIA WESTON PID : [id number] : 1980 Gender : Male Race : ORD : Procedure Date : Apr 21 2025 22:14:20 Edit Date : Jun 19 2025 15:49:21 Diagnosis: UNDETERMINED RHYTHM RIGHT AXIS DEVIATION LOW VOLTAGE QRS QTcB >= 480 msec ABNORMAL ECG Confirmed by MD RUANO HEBA ([id number]) on 06/19/2025 3:49:17 PM Test Reason : AMET Location : 97 : [place] [address] Overread By : MD RUANO HEBA Edited By : MD RUANO HEBA Referred By : , Acquired by : NANCY MARIE XR CHEST 1V FRONTAL PORT Observed: 04/21 5:48 PM Status: F Source: [facility] * * *Final Report* * * DATE OF EXAM: Apr 21 2025 5:48PM JOAN [id number] - XR CHEST 1V FRONTAL PORT / PROCEDURE REASON: Sepsis * * * * Physician Interpretation * * * * EXAMINATION: CHEST RADIOGRAPH (PORTABLE SINGLE VIEW AP) Exam Date/Time: 04/21/2025 5:48 PM Clinical History: Sepsis MQ: [id number] Comparison: 10/12/2024 RESULT: Lines, tubes, and devices: Placement of new tunneled catheter with tip in the right atrium. Lungs and pleura: Increase of perihilar and basilar opacities with volume loss suggesting atelectasis and possible underlying edema or inflammation. There is blunting of the left CP angle which may represent tiny effusion or pleural thickening. Cardiomediastinal silhouette: Stable cardiomediastinal silhouette. Other: Median sternotomy. Scoliotic curvature of the spine. IMPRESSION: See result. Residential Driver: PSCB Transcribe Date/Time: Apr 22 2025 12:46A Dictated by : WENDY CERDA MD This examination was interpreted and the report reviewed and electronically signed by: WENDY CERDA MD on Apr 22 2025 12:48AM EST [id number] BUN P DIALYSIS SERPL-MCNC Collected: 04/21/2025 3:34 PM Status: F Source: [facility] Order Comment: Specimen Type : BLOOD SPECIMEN Ordering Facility: [facility] Address: [address] [place] [address] TYPE CODE TESTS RESULT OUT OF RANGE REFERENCE UNITS LAB 96509-9(LOINC) BUN p dialysis SerPl-mCnc 12 9-24 mg/dL LAB BUNRAT UREA REDUCTION RATIO WITH BUNPR 78 % Performed By: #### 36914-6 # ### [facility] CLIA [id number] [address] [place] [address] [place] CONSULT PROG Observed: 04/21/2025 1:09 PM Status: COMPLETED Source: [facility] HNO ID: [id number] Author: NAYELY GARCIA RPh Service: Pharmacy Author Type: Pharmacist Type: Consult Progress Note Filed: 04/21/2025 13:12 Note Text: PHARMACY VANCOMYCIN DOSING NOTE Patient Name: Elia Weston Admission Date: 04/20/2025 Date of Consult: 04/21/2025 Time of Consult: 1:09 PM Indication: Skin/soft tissue infection Goal Range: 10-20 mcg/mL RECOMMENDATIONS/PLAN: Pharmacy consulted for vancomycin dosing for Elia Weston, a 45 year old male. 1. Patient is currently ordered Vancomycin dosed by level. Today is day 1 of therapy. First dose 1.75g x1 given 04/21 02:00. 2. No vancomycin level has been drawn for this dosing regimen. 3. Plan is 1g after each IHD, Ordered one dose for today, will schedule once IHD schedule known. 4. The next vancomycin level will be ordered for prior to 4th IHD session unless clinically indicated sooner. (Pharmacy will order) We will follow patient renal function, vancomycin levels and doses with you during the course of therapy. Additional recommendations will appear in follow up notes. If you have any questions, please contact Justine Garcia PharmD at [phone]. Age: [age] year old Allergies: ALLERGIES Allergen Reactions Gabapentin Unknown, Other: See Comments Trazodone Other: See Comments Fidgety Last 3 Encounter Wt Readings: Date: Wt: 04/20/2025 115.6 kg (254 lb 13.6 oz) 12/28/2024 118 kg (260 lb 2.3 oz) 10/11/2024 118 kg (260 lb 2.3 oz) Last 1 Encounter Ht Readings: Date: Ht: 10/11/2024 177 cm (5' 9.69) Intermittent hemodialysis Temp (24hrs), Av.7 ?C (98 ?F), Min:36.4 ?C (97.5 ?F), Max:37.1 ?C (98.7 ?F) - Current Temp: 36.4 ?C (97.5 ?F) Labs BUN (mg/dL) Date Value 04/21/2025 54 (H) 04/21/2025 52 (H) 04/20/2025 50 (H) Creatinine (mg/dL) Date Value 04/21/2025 12.66 (H) 04/21/2025 12.27 (H) 04/20/2025 11.59 (H) WBC (k/uL) Date Value 04/21/2025 14.79 (H) 04/21/2025 15.26 (H) 04/20/2025 13.20 (H) Vancomycin Levels: Vancomycin, result (ug/mL) Date/Time Value 04/08/2007 0400 25.8 04/07/2007 0700 8.2 Vancomycin,Random (mg/L) Date/Time Value 11/17/2012 1940 10.2 (L) 11/13/2012 1228 25.5 Vancomycin (ug/mL) Date/Time Value 06/30/2023 2138 6.0 (L) Nayely Garcia RPh CONSULT Observed: 04/21/2025 12:58 PM Status: COMPLETED Source: [facility] ID: [id number] Author: LELA SOLIMAN APRN.FLORAL ASSOCIATE Service: Nephrology Author Type: Nurse Practitioner Type: Consults Filed: 04/21/2025 13:56 Note Text: [facility] [place] CONSULT: NEPHROLOGY Q6 SERVICE SERVICE DATE: 04/21/2025 SERVICE TIME: 12:58 PM REASON FOR CONSULT: I am asked to see this patient in consultation for my opinion regarding management of ESRD. My recommendations will be communicated by way of shared medical record. REQUESTING PHYSICIAN: Maurilio Cintron MD PRIMARY CARE PHYSICIAN: No primary care provider on file. CHIEF COMPLAINT: ESRD on IHD HPI: Mr. Weston is a 45 year old male with PMH significant for ESRD on IHD, HTN, BMI>35, vascular access complications, YEIMY, DVT, p-AFIB, anemia, blind left eye, expressive dysphasia, endocarditis, NSTEMI, HFpEF, Mitral 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, MO, PE, CVA, hypotension on Midodrine, CHB, colitis, Adjustment Disorder With Depressed Mood, MSSA bacteremia, Proximal Colon Ulcer, Hypothyroidism, Intra-Abdominal Varices, Stenosis of Superior Vena Cava, chronic pain, jugular vein occlusion, S/P MAZE procedure, skin ulcers, GERD who presented to the hospital with complaints of bloody wound drainage. Patient has rt chest wound and back wounds. Labs on presentation significant for elevated BUN/Cr consistent with ESRD without hyperkalemia, acidosis, elevated lactic acid, sed rate and CRP, leukocytosis, anemia and supratherapeutic INR. Blood cultures obtained and started on broad spectrum atbs. He missed is opt HD session yesterday with his last session Wednesday 04/18. PAST MEDICAL HISTORY: PAST MEDICAL HISTORY Diagnosis Date Anemia of chronic disorder Anuria Atrial fibrillation (HCC) 12/02/2018 on Coumadin and Amiodarone BMI 40.0-44.9, adult (HCC) ESRD (end stage renal disease) on dialysis ([facility]) 2005 ESRD from HTN Dialysis [facility] [phone] Essential hypertension, benign 1998 EKG 09/30 NL. Hearing loss of both ears History of mitral valve stenosis Hx of bacterial endocarditis Hyperparathyroidism due to end stage renal disease on dialysis (HCC) Kidney disease 2005 ESRD due to HTN; on IHD since 2005 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 and scoliosis h/o this 3 y. Dx by xray. Mechanical complication of arteriovenous fistula surgically created (HCC) Mechanical complication of dialysis catheter (HCC) Mitral valve disease Morbid obesity (HCC) MS (mitral stenosis) 10/08/2018 Transesophageal US YEIMY on CPAP Paroxysmal atrial fibrillation (HCC) PE (pulmonary thromboembolism) (HCC) Pelvic mass Pseudoaneurysm of AV hemodialysis fistula (HCC) Wound of right side of back from friction/rubbing of jacket, goes to wound care center in [place] PAST SURGICAL HISTORY: PAST SURGICAL HISTORY Procedure Laterality Date ARTERIOVENOUS FISTULA Left 08/29/2010 CAPSULE ENDOSCOPY 07/01/2023 CARDIOVERSION-ELECTIVE N/A 12/03/2018 200 joules synchronized - successful COLONOSCOPY 07/01/2023 EGD 06/27/2023 HERNIA REPAIR HX PAST SURGICAL HISTORY OF 08/29/2010 dialysis fistula left arm PAST SURGICAL HISTORY OF Right 03/2019 Right leg femoral vein to superficial femoral artery loop graft mid thigh REPAIR CLEFT LIP RMVL LEANN CVC W/O SUBQ PORT/TOBACCO PREVENTION HEALTH EDUCATOR 01/17/2013 SHX CARDIAC RADIOFREQUENCY ABLATION 08/21/2021 s/p Maze procedure SHX MITRAL VALVE REPLACEMENT 08/21/2021 FAMILY HISTORY: FAMILY HISTORY Adopted: Yes Problem Relation Age of Onset None Mother None Father Aneurysm No Family History SOCIAL HISTORY: Social History Tobacco Use Smoking status: Never Smokeless tobacco: Never Vaping Use Vaping status: Never Used Substance Use Topics Alcohol use: No Drug use: No MEDICATIONS: Prior to Admission Medications aspirin 81 mg chewable tablet, Take 81 mg by mouth., Disp: , Rfl: , 04/20/2025 cinacalcet (SENSIPAR) 60 mg tablet, Take 1 tablet by mouth once daily., Disp: , Rfl: , 04/20/2025 calcitriol (ROCALTROL) 0.5 mcg capsule, Take 3 capsules by mouth every Friday, Friday, and Friday., Disp: , Rfl: , 04/20/2025 B Complex-Vitamin C-Folic Acid (JOHNSON-BRENDA) 0.8 mg tab, Take 1 tablet by mouth once daily., Disp: , Rfl: , 04/20/2025 midodrine (PROAMATINE) 10 mg tablet, Take 2 tablets by mouth every 8 hours., Disp: 180 tablet, Rfl: 11, 04/21/2025 Morning melatonin 3 mg tablet, Take 3 tablets by mouth daily at bedtime., Disp: , Rfl: , Unknown warfarin (COUMADIN) 2.5 mg tablet, Take 1 tablet by mouth once daily., Disp: , Rfl: , Unknown Darbepoetin Osito In Polysorbat (ARANESP) 60 mcg/0.3 mL syrg, Inject 0.3 mL subcutaneously every Friday. (Patient not taking: Reported on 01/25/2025), Disp: , Rfl: , Unknown sodium zirconium cyclosilicate (LOKELMA) 10 gram oral packet, Take 1 Packet by mouth once daily. Mix powder in 45 mL of water, stir and drink immediately. (Patient not taking: Reported on 01/25/2025), Disp: , Rfl: sevelamer carbonate (RENVELA) 800 mg tablet, Take 3 tablets by mouth three times a day with meals. (Patient not taking: Reported on 01/25/2025), Disp: , Rfl: polyethylene glycol 3350 (MIRALAX) 17 gram packet, Take 1 Packet by mouth once daily. Dissolve dose in 4 - 8 ounces of liquid and take as directed., Disp: 60 Each, Rfl: 0, Unknown oxyCODONE IR (ROXICODONE) 10 mg tab, Take 10 mg by mouth every 8 hours as needed for pain., Disp: , Rfl: , Unknown Current Facility-Administered Medications Medication Dose Route Frequency vancomycin dosing and monitoring per pharmacy OTHER As Directed NaCl 0.9% iv flush bag 20 mL INTRAVENOUS PRN acetaminophen 650 mg tab(s) (TYLENOL) 650 mg ORAL q 6 H PRN polyethylene glycol 3350 17 g packet 17 g ORAL DAILY PRN aspirin 81 mg chewable tab(s) 81 mg ORAL DAILY midodrine 20 mg tab(s) (PROAMATINE) 20 mg ORAL q 8 H cinacalcet 60 mg tab(s) (SENSIPAR) 60 mg ORAL DAILY piperacillin-tazobactam iv piggyback 3.375 g in dextrose (iso-osmotic) 50 mL (ZOSYN) 3.375 g INTRAVENOUS q 12 HR iv contrast (radiology procedure) INTRAVENOUS DIRECTED PRN And enteric contrast (radiology procedure) ORAL DIRECTED PRN sodium bicarbonate 650 mg tab(s) 650 mg ORAL TID sevelamer carbonate 800 mg tab(s) (RENVELA) 800 mg ORAL TID w MEALS ALLERGIES: ALLERGIES Allergen Reactions Gabapentin Unknown, Other: See Comments Trazodone Other: See Comments Fidgety REVIEW OF SYSTEMS: Constitutional: No fever, No chills, and No weakness Eyes: No complaints Ear, Nose, and Throat: No complaints Cardiovascular: No chest pain or pressure, No dizziness, and +BLE edema Respiratory: No cough and No dyspnea Gastrointestinal: No diarrhea, No constipation, No nausea, No emesis, and No abdominal pain Genitourinary: ESRD Musculoskeletal: No joint pain and No joint swelling Skin: No pruritis, No rash, and +rt chest wound, and back wounds Neurological: No tremor, No headache, No numbness, and No tingling Psychiatric: No depression and No anxiety Endocrine: No complaints Hematologic:No complaints PHYSICAL EXAM: BP (!) 71/30 Pulse 93 Temp 36.4 ?C (97.5 ?F) (Axillary) Resp 18 Wt 115.6 kg (254 lb 13.6 oz) SpO2 100% BMI 36.90 kg/m? Intake/Output Summary (Last 24 hours) at 04/21/2025 1258 Last data filed at 04/21/2025 0846 Gross per 24 hour Intake 500 ml Output 0 ml Net 500 ml GENERAL: Awake, alert, in no acute distress SKIN: Warm and dry, Rt chest wound with Kerlex and bernardo wrap dressing HEENT: Normocephalic, Atraumatic LUNGS: Normal respiratory effort on room air CARDIAC: Sinus rhythm on monitor ABDOMEN: round, slightly taut, nodular, non-distended EXTREMITIES: taut BLE edema NEURO: AOx3, normal speech ACCESS: RIJ TDC dressing intact DATA: Diagnostic tests reviewed for today's visit: Recent Labs 04/21/25 1108 04/21/25 0341 04/20/25 1822 NA 137 135* 138 K 4.4 4.5 4.1 CHLOR 95* 95* 97* CO2 18* 15* 19* BUN 54* 52* 50* CREAT 12.66* 12.27* 11.59* GLUC 85 92 107* ANION 24* 25* 22* CA 9.4 9.8 9.7 P 10.5* 9.7* -- MG 2.3 2.5* 2.5* Recent Labs 04/21/25 1108 04/21/25 0341 04/20/25 1822 WBC 14.79* 15.26* 13.20* HB 7.3* 8.6* 9.5* HCT 25.0* 28.4* 31.3* PLT 355 416* 373 ASSESSMENT: Mr. Weston is a 45 year old male with PMH significant for ESRD on IHD, HTN, BMI>35, vascular access complications, YEIMY, DVT, p-AFIB, anemia, blind left eye, expressive dysphasia, endocarditis, NSTEMI, HFpEF, Mitral 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, MO, PE, CVA, hypotension on Midodrine, CHB, colitis, Adjustment Disorder With Depressed Mood, MSSA bacteremia, Proximal Colon Ulcer, Hypothyroidism, Intra-Abdominal Varices, Stenosis of Superior Vena Cava, chronic pain, jugular vein occlusion, S/P MAZE procedure, skin ulcers, GERD who presented to the hospital with complaints of bloody wound drainage. Patient has rt chest wound and back wounds. Labs on presentation significant for elevated BUN/Cr consistent with ESRD without hyperkalemia, acidosis, elevated lactic acid, sed rate and CRP, leukocytosis, anemia and supratherapeutic INR. Blood cultures obtained and started on broad spectrum atbs. He missed is opt HD session yesterday with his last session Wednesday 04/18. 04/21 rt chest wound with significant bleeding. IV fluids given for elevated lactate 1.ESRD History -Etiology: HTN Renal Biopsy 2005 renal failure, of undetermined etiology. All of the glomeruli examined are obliterated by total global sclerosis -Date of first HD: 2005 -Current HD unit: [facility] -Configuration Release Manager: Dr Melendez -Schedule: Fri-Fri-Fri -Time: 4.5 hrs -EDW: 114 kg -Date of last outpatient dialysis: 04/18/25 -Access: R IJ TDC 2.Electrolytes/acid-base: -Potassium >> stable >> controlled with DRYWALL SANDER 3K bath -Sodium stable -Metabolic acidosis modulated with DRYWALL SANDER 3.Blood Pressure/Volume Status: -BP intermittently hypotensive SBP 70-110 -Hypotension modulated with Midodrine 20 mg Q8 -OPT: Midodrine 10 mg PRN dialysis -LR 500 x1 and 250 cc x1 -EDW 114 kg, Pre-weight today 113.5 kg with no UF -Mild hypervolemia on exam with large rounder taut abd and slight taut BLE 4.Anemia Due to multiple mechanisms: -Hgb below ESRD goal -Transfuse per primary -Iron Stores 04/04: Ferritin 653 Iron 25 TIBC 180 TSAT 14 -Avoid IV iron in the setting of infection -OPT: Venofer 100 mg TIW -ANABELLA: Consider if hgb <8 or LOS >7days -OPT: Mircera 225 mcg Q2 weeks last given unknown 5.Secondary renal hyperparathyroidism: -Hyperphosphatemia above ESRD goal>> on Renvela >> trend value -Calcium stable -Sensipar 60 mg every day -OPT: Calcitriol 2.5 mcg TIW PLAN: -IHD today x 4.5 hours, 3 K bath with no UF -Next dialysis planned for tomorrow/Friday to resume // schedule -Continue Renvela with meals -Continue Sensipar daily Standard ESRD recommendations and precautions: - Strict IANDOs and Daily weight - Consider a RENAL Diet for HD patients - Fluid restriction < 1 L - Start Nephrocap or other renal multivitamin to replace water-soluble vitamins lost during dialysis - Avoid Lovenox, Demerol, Morphine, K-containing IVF, Mg- or Phos- containing enemas - Dose meds GFR 10 ml/min Outpatient dialysis disposition plan: contact [phone] and ask to speak with the director of front office as needed for assistance with post-discharge arrangements. Please DO NOT schedule patient for a nephrology follow up appointment. Kidney care will be provided by the primary data warehousing engineer at their dialysis unit upon hospital discharge. SIGNATURE: Lela Soliman APRN.CNP PATIENT NAME: Elia Weston DATE: April 21, 2025 TIME: 12:58 PM FOR AFTER HOUR CONCERNS BETWEEN 5PM - 7AM CONTACT ON-CALL NEPHROLOGY FELLOW Disclosures: Parts of the current progress note may have been copied from a previous note. GAS + CO PNL BLDV Collected: 5 11:53 AM Status: F Source: [facility] Order Comment: Specimen Type : VENOUS BLOOD SPECIMEN Ordering Facility: [facility] Address: [address] [place] [address] TYPE CODE TESTS RESULT OUT OF RANGE REFERENCE UNITS LAB 2746-6(LOINC) pH BldV 7.34 7.32-7.42 LAB 07553-7(LOINC) pH temp adj BldV 7.35 7.32-7.42 LAB 2020-4(LOINC) pCO2 BldV 48 42-55 mmHg LAB 22907-5(LOINC) pCO2 temp adj BldV 46 42-55 mmHg LAB 2705-2(LOINC) pO2 BldV 41 35-45 mmHg LAB 66790-9(LOINC) pO2 temp adj BldV 38 35-45 mmHg LAB 2711-0(LOINC) SaO2 % BldV 62 60-85 % LAB BDVEN BASE DEFICIT, VENOUS >-1 -2-0 mmol/L LAB 14103-8(LOINC) HCO3 BldV-sCnc 25 24-28 mmol/L LAB 2716-9([facility]) OxyHgb MFr BldV 60 60-85 % LAB 2032-1(INC) COHgb MFr BldV 1.6 0.0-2.0 % Result Comment: Carboxyhemog lobin Reference Range for Smokers: 2.0-8.0% LAB 2614-6([facility]) MetHgb MFr Bld 1.5 0.0-1.5 % LAB 2947-0([facility]) Sodium Bld-sCnc 142 136-144 mmol/L LAB 6298-4([facility]) Potassium Bld-sCnc 3.7 3.5-5.0 mmol/L LAB 36283-4([facility]) Ca-I Bld-mCnc 1.12 1.08-1.30 m mol/L LAB 06718-6([facility]) Ca-I adj pH7.4 BldA-sCnc 1.08 1.08-1.30 mmol/L LAB 2339-0([facility]) Glucose Bld-mCnc 80 60-105 mg/dL LAB 36927-7([facility]) Lactate Bld-sCnc 1.7 0.5-2.2 mmol/L LAB 718-7([facility]) Hgb Bld-mCnc 7.6 Low 13.0-17.0 g/dL LAB 4544-3(INC) Hct VFr Bld Auto 23.7 Low 39.0-51.0 % LAB VTMP TEMPERATURE, BODY 36.0 C LAB VO2TH O2 THERAPY RA=Room Air Performed By: #### 83920-5 # ### [facility] CLIA [id number] [address] [place] [address] [place] BUN PRE DIAL SERPL-MCNC Collected: 03/30 11:08 AM Status: F Source: [facility] Order Comment: Specimen Type : BLOOD SPECIMEN Ordering Facility: [facility] Address: [address] [place] [address] TYPE CODE TESTS RESULT OUT OF RANGE REFERENCE UNITS LAB 78576-6([facility]) BUN pre dial SerPl-mCnc 54 High 9-24 mg/dL Performed By: #### 84971-8, 2777-1, 16810-2, 12976-3 #### [facility] CLIA [id number] [address] [place] [address] [place] [id number] [facility] [place] COMP METAB 2000 PNL SERPL Collected: 11:08 AM Status: F Source: [facility] Order Comment: Specimen Type : BLOOD SPECIMEN Ordering Facility: [facility] Address: [address] [place] [address] TYPE CODE TESTS RESULT OUT OF RANGE REFERENCE UNITS LAB 2885-2(LOINC) Prot SerPl-mCnc 7.7 6.3-8.0 g/dL LAB 1751-7(LOINC) Albumin SerPl-mCnc 3.1 Low 3.9-4.9 g/dL LAB 48559-3(LOINC) Calcium SerPl-mCnc 9.4 8.5-10.2 mg/dL LAB 1975-2(LOINC) Bilirub SerPl-mCnc 0.4 0.2-1.3 mg/dL LAB 6768-6(LOINC) ALP SerPl-cCnc 151 High 38-113 U/L LAB 1920-8(LOINC) AST SerPl-cCnc 16 14-40 U/L LAB 1742-6(LOINC) ALT SerPl-cCnc 9 Low 10-54 U/L LAB 2345-7(LOINC) Glucose SerPl-mCnc 85 74-99 mg/dL Result Comment: The [place] Diabetes Association (ADA) provides guidance for cutoff values for fasting glucose and random glucose. The ADA defines fasting as no caloric intake for at least 8 hours. Fasting plasma glucose results between 100 to 125 mg/dL indicate increased risk for diabetes (prediabetes). Fasting plasma glucose results greater than or equal to 126 mg/dL meet the criteria for diagnosis of diabetes. In the absence of unequivocal hyperglycemia, results should be confirmed by repeat testing. In a patient with classic symptoms of hyperglycemia or hyperglycemic crisis, random plasma glucose results greater than or equal to 200 mg/dL meet the criteria for diagnosis of diabetes. Reference: Standards of Medical Care in Diabetes 2016, [place] Diabetes Association. Diabetes Care. 2016.39(Suppl 1). LAB 3094-0(LOINC) BUN SerPl-mCnc 54 High 9-24 mg/dL LAB 2160-0(LOINC) Creat SerPl-mCnc 12.66 High 0.73-1.22 mg/dL LAB 2951-2(LOINC) Sodium SerPl-sCnc 137 136-144 mmol/L LAB 2823-3(LOINC) Potassium SerPl-sCnc 4.4 3.7-5.1 mmol/L LAB 2075-0(LOINC) Chloride SerPl-sCnc 95 Low 98-107 mmol/L LAB 2028-9(LOINC) CO2 SerPl-sCnc 18 Low 22-30 mmol/L LAB 91274-8(LOINC) Anion Gap SerPl-sCnc 24 High 8-15 mmol/L LAB 52679-5(LOINC) eGFRcr SerPlBld CKD-EPI 2020 5 Low >=60 mL/min/1. 73m??? Result Comment: Estimated Gl omerular Filtration Rate (eGFR) is calculated using the 2020 CKD-EPI creatinine equation. This equation utilizes serum creatinine, sex, and age as parameters. The creatinine assay has traceable calibration to isotope dilution-mass spectrometry. Refer to KDIGO guidelines for clinical interpretation. In patients with unstable renal function, e.g. those with acute kidney injury, the eGFR may not accurately reflect actual GFR. Performed By: #### 46568-2, 2777-1, 98484-3, 94543-9 #### [facility] CLIA [id number] [address] [place] [address] [place] MAGNESIUM SERPL-MCNC Collected: 025 11:08 AM Status: F Source: [facility] Order Comment: Specimen Type : BLOOD SPECIMEN Ordering Facility: [facility] Address: [address] [place] [address] TYPE CODE TESTS RESULT OUT OF RANGE REFERENCE UNITS LAB 90567-6(LOINC) Magnesium SerPl-mCnc 2.3 1.7-2.3 mg/dL Performed By: #### 29908-0, 2777-1, 55503-0, 06206-9 #### [facility] CLIA [id number] [address] [place] [address] [facility] PHOSPHATE SERPL-MCNC Collected: 025 11:08 AM Status: F Source: [facility] Order Comment: Specimen Type : BLOOD SPECIMEN Ordering Facility: [facility] Address: [address] [place] [address] TYPE CODE TESTS RESULT OUT OF RANGE REFERENCE UNITS LAB 2777-1(LOINC) Phosphate SerPl-mCnc 10.5 High 2.7-4.8 mg/dL Performed By: #### 89082-0, 2777-1, 71439-3, 63231-9 #### [facility] CLIA [id number] [address] [place], [place] [id number] [place] PT PNL PPP Collected: 5 11:08 AM Status: F Source: [facility] Order Comment: Specimen Type : BLOOD SPECIMEN Ordering Facility: [facility] Address: [address] [place] [address] TYPE CODE TESTS RESULT OUT OF RANGE REFERENCE UNITS LAB 5902-2(LOINC) Prothrombin time 49.1 High 9.7-13.0 sec LAB 6301-6(LOINC) INR PPP 5.1 High 0.9-1.3 Result Comment: Vitamin K An tagonist (VKA) Therapeutic Range: INR 2 to 3 (Target INR of 2.5) Note: For patients treated with VKA drugs, such as warfarin, the [place] College [employer]icians 2012 Guideline recommends a therapeutic INR range of 2 to 3 (target INR of 2.5). This recommendation includes high-risk patients with antiphospholipid syndrome with previous arterial or venous thromboembolism, current-generation mechanical or bioprosthetic aortic heart valve replacement. Note: Patients with mechanical aortic valve replacement and additional risk factors for thromboembolic events (atrial fibrillation, previous thromboembolism, LV dysfunction, hypercoagulable conditions) or an older generation mechanical AVR (i.e., ball in-Cage) or any mechanical MVR should have a INR therapeutic range of 2.5 to 3.5 (target INR of 3). Ranjit YOUSSEF, et al. Chest 2012, 141:7S-47S Kevin RUSHING et al. [facility] 2017, 70: 252-289 Result rechecked. Sample checked for clot. Performed By: #### 00175-4, 10413-1 #### [facility] CLIA [id number] [address] [place] [address] [place] APTT PPP Collected: 5 11:08 AM Status: F Source: [facility] Order Comment: Specimen Type : BLOOD SPECIMEN Ordering Facility: [facility] Address: [address] [place] [address] TYPE CODE TESTS RESULT OUT OF RANGE REFERENCE UNITS LAB 87580-3([facility]) aPTT PPP 62.7 High 23.0-32.4 sec Performed By: #### 54921-9, 59651-0 #### [facility] CLIA [id number] [address] [place] [address] [place] CBC PNL BLD AUTO Collected: 5 11:08 AM Status: F Source: [facility] Order Comment: Specimen Type : BLOOD SPECIMEN Ordering Facility: [facility] Address: [address] [place] [address] TYPE CODE TESTS RESULT OUT OF RANGE REFERENCE UNITS LAB 6690-2(LOINC) WBC # Bld Auto 14.79 High 3.70-11.00 k/uL LAB 789-8(LOINC) RBC # Bld Auto 2.67 Low 4.20-6.00 m/uL LAB 718-7(LOINC) Hgb Bld-mCnc 7.3 Low 13.0-17.0 g/dL LAB 4544-3(LOINC) Hct VFr Bld Auto 25.0 Low 39.0-51.0 % LAB 787-2(LOINC) MCV RBC Auto 93.6 80.0-100.0 fL LAB 785-6(LOINC) MCH RBC Qn Auto 27.3 26.0-34.0 pg LAB 786-4(LOINC) MCHC RBC Auto-mCnc 29.2 Low 30.5-36.0 g/dL LAB 82049-8(LOINC) RDW RBC-Rto 20.3 High 11.5-15.0 % LAB 777-3(LOINC) Platelet # Bld Auto 355 150-400 k/uL LAB 95671-9(INC) PMV Bld Auto 10.5 9.0-12.7 fL LAB 771-6(LOINC) nRBC # Bld Auto <0.01 <0.01 k/uL Performed By: #### 21937-6 # ### [facility] CLIA [id number] [address] [place] [address] [place] GAS + CO PNL BLDV Collected: 5 5:57 AM Status: F Source: [facility] Order Comment: Specimen Type : VENOUS BLOOD SPECIMEN Ordering Facility: [facility] Address: [address] [place] [address] TYPE CODE TESTS RESULT OUT OF RANGE REFERENCE UNITS LAB 2746-6(LOINC) pH BldV 7.25 Low 7.32-7.42 LAB 2020-4(LOINC) pCO2 BldV 45 42-55 mmHg LAB 2705-2(LOINC) pO2 BldV 54 High 35-45 mmHg LAB 2711-0(LOINC) SaO2 % BldV 77 60-85 % LAB BDVEN BASE DEFICIT, VENOUS -7 Low -2-0 mmol/L LAB 88183-2(LOINC) HCO3 BldV-sCnc 19 Low 24-28 mmol/L LAB 2716-9(LOINC) OxyHgb MFr BldV 75 60-85 % LAB 2032-1(LOINC) COHgb MFr BldV 1.8 0.0-2.0 % Result Comment: Carboxyhemog lobin Reference Range for Smokers: 2.0-8.0% LAB 2614-6(LOINC) MetHgb MFr Bld 1.0 0.0-1.5 % LAB 2947-0(LOINC) Sodium Bld-sCnc 138 136-144 mmol/L LAB 6298-4([facility]) Potassium Bld-sCnc 4.5 3.5-5.0 mmol/L LAB 37205-0([facility]) Ca-I Bld-mCnc 1.13 1.08-1.30 m mol/L LAB 40710-4([facility]) Ca-I adj pH7.4 BldA-sCnc 1.04 Low 1.08-1.30 mmol/L LAB 2339-0([facility]) Glucose Bld-mCnc 103 60-105 mg/dL LAB 86539-3([facility]) Lactate Bld-sCnc 3.2 High 0.5-2.2 mmol/L LAB 718-7([facility]) Hgb Bld-mCnc 8.5 Low 13.0-17.0 g/dL LAB 4544-3([facility]) Hct VFr Bld Auto 26.3 Low 39.0-51.0 % LAB VTMP TEMPERATURE, BODY 37.0 C LAB VO2TH O2 THERAPY RA=Room Air Performed By: #### 56043-6 # ### [facility] CLIA [id number] [address] [place] [address] OF [facility] PLAN OF CARE Observed: 04/21/2025 5:50 AM Status: COMPLETED Source: [facility] HNO ID: [id number] Author: BRAD DAMON MD Service: General Internal Medicine Author Type: Resident Type: Plan of Care Filed: 04/21/2025 05:59 Note Text: Internal Medicine Plan of Care Patient had AMET called for profuse bleeding from chest wall wound. Per patient he was sitting up in bed using his phone when the phone slipped and hit his wound. He called out that he was bleeding. Was notified by nursing about bleeding, when I came to bedside patient had profuse bleeding from his chest wound, with blood soaking his sheets and dripping over the floor. Pressure was held. Patient was alert and oriented, HDS. After about 15-20 minutes of pressure, bleeding stopped. Vitals checked after episode, he remained hemodynamically stable. Repeat Hgb showed acute drop to 8.6 from 9.5. Repeat lactate 3.1 from 2.7. Suspect rise in lactate from volume loss with bleeding. However, patient with waxing and waning mental status. Ordered 250 cc IV LR with plan to repeat lactate after fluid bolus. Given previous hx of hemorrhagic shock from bleeding wounds I called MICU, who agreed with plan to recheck lactate after fluid bolus. Currently awaiting repeat VBG. Vitals remain stable. Brad Damon MD PGY3 Internal Medicine Pager [phone] ECG COMPLETE Observed: 04/21/2025 5:01 AM Status: F Source: [facility] Ventricular Rate : 115 BPM QRS Duration : 64 ms Q-T Interval : 336 ms QTC Calculation(Bazett) : 464 ms Calculated R Assumption : 39 degrees Calculated T Assumption : 175 degrees BASELINE ARTIFACT UNDETERMINED RHYTHM LOW VOLTAGE QRS, CONSIDER PULMONARY DISEASE, PERICARDIAL EFFUSION, OR NORMAL VARIANT ANTEROLATERAL INFARCTION , AGE UNDETERMINED INFERIOR T WAVE ABNORMALITY ABNORMAL ECG Confirmed by BROOK DELACRUZ MD ([id number]) on 06/10/2025 11:13:23 AM NAME : ELIA WESTON PID : [id number] : 1980 Gender : Male Race : ORD : [id number] Procedure Date : Apr 21 2025 05:01:55 Edit Date : Jun 10 2025 11:13:28 Diagnosis: BASELINE ARTIFACT UNDETERMINED RHYTHM LOW VOLTAGE QRS, CONSIDER PULMONARY DISEASE, PERICARDIAL EFFUSION, OR NORMAL VARIANT ANTEROLATERAL INFARCTION , AGE UNDETERMINED INFERIOR T WAVE ABNORMALITY ABNORMAL ECG Confirmed by BROOK DELACRUZ MD ([id number]) on 06/10/2025 11:13:23 AM Test Reason : no rev. ch to 20hz bst pos. Location : : [place] [address] Overread By : BROOK DELACRUZ MD Edited By : BROOK DELACRUZ MD Referred By : , Acquired by : FEMI BAUER [facility] Observed: 04/21/2025 3:44 AM Status: COMPLETED Source: [facility] HNO ID: [id number] Author: DAYAN CARRINGTON APRN.CNP Service: Critical Care Author Type: Nurse Practitioner Type: Chg in Clinical Condition Filed: 04/21/2025 03:45 Note Text: AMET cancelled SERVICE DATE: 04/21/2025 SERVICE TIME: 3:44AM AMET called to bedside for bleeding from chest wound. On arrival, pt is in no distress and HDS. Labs are being drawn by bedside RN. Bedside RN holding pressure with bleeding stable. No AMET intervention necessary. SIGNATURE: Dayan Carrington APRN.CNP PATIENT NAME: Elia Weston DATE: April 21, 2025 TIME: 3:44 AM GAS + CO PNL BLDV Collected: 3:41 AM Status: F Source: [facility] Order Comment: Specimen Type : VENOUS BLOOD SPECIMEN Ordering Facility: [facility] Address: [address] [place] [address] TYPE CODE TESTS RESULT OUT OF RANGE REFERENCE UNITS LAB 2746-6(LOINC) pH BldV 7.27 Low 7.32-7.42 LAB 2020-4(LOINC) pCO2 BldV 44 42-55 mmHg LAB 2705-2(LOINC) pO2 BldV 49 High 35-45 mmHg LAB 2711-0(LOINC) SaO2 % BldV 72 60-85 % LAB BDVEN BASE DEFICIT, VENOUS -7 Low -2-0 mmol/L LAB 07672-5(LOINC) HCO3 BldV-sCnc 19 Low 24-28 mmol/L LAB 2716-9(LOINC) OxyHgb MFr BldV 70 60-85 % LAB 2032-1(LOINC) COHgb MFr BldV 1.9 0.0-2.0 % Result Comment: Carboxyhemog lobin Reference Range for Smokers: 2.0-8.0% LAB 2614-6(LOINC) MetHgb MFr Bld 1.0 0.0-1.5 % LAB 2947-0(LOINC) Sodium Bld-sCnc 137 136-144 mmol/L LAB 6298-4(LOINC) Potassium Bld-sCnc 4.2 3.5-5.0 mmol/L LAB 30101-2(LOINC) Ca-I Bld-mCnc 1.04 Low 1.08-1.30 m mol/L LAB 31324-7(LOINC) Ca-I adj pH7.4 BldA-sCnc 0.96 Low 1.08-1.30 mmol/L LAB 2339-0(LOINC) Glucose Bld-mCnc 108 High 60-105 mg/dL LAB 12508-4(LOINC) Lactate Bld-sCnc 3.1 High 0.5-2.2 mmol/L LAB 718-7(LOINC) Hgb Bld-mCnc 8.6 Low 13.0-17.0 g/dL LAB 4544-3(LOINC) Hct VFr Bld Auto 26.8 Low 39.0-51.0 % LAB VTMP TEMPERATURE, BODY 37.0 C LAB VO2TH O2 THERAPY RA=Room Air Performed By: #### 66388-8 # ### [facility] CLIA [id number] [address] [place] [address] [place] COMP METAB 2000 PNL SERPL Collected: 3:41 AM Status: F Source: [facility] Order Comment: Specimen Type : BLOOD SPECIMEN Ordering Facility: [facility] Address: [address] [place] [address] TYPE CODE TESTS RESULT OUT OF RANGE REFERENCE UNITS LAB 2885-2(LOINC) Prot SerPl-mCnc 8.6 High 6.3-8.0 g/dL LAB 1751-7(LOINC) Albumin SerPl-mCnc 3.3 Low 3.9-4.9 g/dL LAB 04856-9(LOINC) Calcium SerPl-mCnc 9.8 8.5-10.2 mg/dL LAB 1975-2(LOINC) Bilirub SerPl-mCnc 0.4 0.2-1.3 mg/dL LAB 6768-6(LOINC) ALP SerPl-cCnc 167 High 38-113 U/L LAB 1920-8(LOINC) AST SerPl-cCnc 22 14-40 U/L Result Comment: Results may be falsely increased due to interference from hemolysis. Suggest reorder as clinically indicated. LAB 1742-6(LOINC) ALT SerPl-cCnc 10 10-54 U/L LAB 2345-7(LOINC) Glucose SerPl-mCnc 92 74-99 mg/dL Result Comment: The [place] Diabetes Association (ADA) provides guidance for cutoff values for fasting glucose and random glucose. The ADA defines fasting as no caloric intake for at least 8 hours. Fasting plasma glucose results between 100 to 125 mg/dL indicate increased risk for diabetes (prediabetes). Fasting plasma glucose results greater than or equal to 126 mg/dL meet the criteria for diagnosis of diabetes. In the absence of unequivocal hyperglycemia, results should be confirmed by repeat testing. In a patient with classic symptoms of hyperglycemia or hyperglycemic crisis, random plasma glucose results greater than or equal to 200 mg/dL meet the criteria for diagnosis of diabetes. Reference: Standards of Medical Care in Diabetes 2016, [place] Diabetes Association. Diabetes Care. 2016.39(Suppl 1). LAB 3094-0(LOINC) BUN SerPl-mCnc 52 High 9-24 mg/dL LAB 2160-0(LOINC) Creat SerPl-mCnc 12.27 High 0.73-1.22 mg/dL LAB 2951-2(LOINC) Sodium SerPl-sCnc 135 Low 136-144 mmol/L LAB 2823-3(LOINC) Potassium SerPl-sCnc 4.5 3.7-5.1 mmol/L LAB 2075-0(LOINC) Chloride SerPl-sCnc 95 Low 98-107 mmol/L LAB 2027-9(LOINC) CO2 SerPl-sCnc 15 Low 22-30 mmol/L LAB 17619-3(LOINC) Anion Gap SerPl-sCnc 25 High 8-15 mmol/L LAB 82493-4(LOINC) eGFRcr SerPlBld CKD-EPI 2020 5 Low >=60 mL/min/1. 73m??? Result Comment: Estimated Gl omerular Filtration Rate (eGFR) is calculated using the 2020 CKD-EPI creatinine equation. This equation utilizes serum creatinine, sex, and age as parameters. The creatinine assay has traceable calibration to isotope dilution-mass spectrometry. Refer to KDIGO guidelines for clinical interpretation. In patients with unstable renal function, e.g. those with acute kidney injury, the eGFR may not accurately reflect actual GFR. Performed By: #### 27880-3, 2777-1, 38845-5 #### [facility] CLIA [id number] [address] [place] [address] [place] MAGNESIUM SERPL-MCNC Collected: 04/21/2025 3:41 AM S tatus: F Source: [facility] Order Comment: Specimen Type : BLOOD SPECIMEN Ordering Facility: [facility] Address: [address] [place], [place] [address] TYPE CODE TESTS RESULT OUT OF RANGE REFERENCE UNITS LAB 51948-3(LOINC) Magnesium SerPl-mCnc 2.5 High 1.7-2.3 mg/dL Performed By: #### 83118-6, 2777-1, 71781-0 #### [facility] CLIA [id number] [address] [place], [place] [address] [place] PHOSPHATE SERPL-MCNC Collected: 04/21/2025 3:41 AM S tatus: F Source: [facility] Order Comment: Specimen Type : BLOOD SPECIMEN Ordering Facility: [facility] Address: [address] [place] [address] TYPE CODE TESTS RESULT OUT OF RANGE REFERENCE UNITS LAB 2777-1(LOINC) Phosphate SerPl-mCnc 9.7 High 2.7-4.8 mg/dL Performed By: #### 69033-2, 2777-1, 37633-9 #### [facility] CLIA [id number] [address] [place], [place] [address] [place] PT PNL PPP Collected: 04/21/2025 3:41 AM Status: F Source: [facility] Order Comment: Specimen Type : BLOOD SPECIMEN Ordering Facility: [facility] Address: [address] [place] [address] TYPE CODE TESTS RESULT OUT OF RANGE REFERENCE UNITS LAB 5902-2(LOINC) Prothrombin time 42.0 High 9.7-13.0 sec LAB 6301-6(LOINC) INR PPP 4.3 High 0.9-1.3 Result Comment: Vitamin K An tagonist (VKA) Therapeutic Range: INR 2 to 3 (Target INR of 2.5) Note: For patients treated with VKA drugs, such as warfarin, the [place] College [employer] Chest [employer]icians 2012 Guideline recommends a therapeutic INR range of 2 to 3 (target INR of 2.5). This recommendation includes high-risk patients with antiphospholipid syndrome with previous arterial or venous thromboembolism, current-generation mechanical or bioprosthetic aortic heart valve replacement. Note: Patients with mechanical aortic valve replacement and additional risk factors for thromboembolic events (atrial fibrillation, previous thromboembolism, LV dysfunction, hypercoagulable conditions) or an older generation mechanical AVR (i.e., ball in-Cage) or any mechanical MVR should have a INR therapeutic range of 2.5 to 3.5 (target INR of 3). Ranjit YOUSSEF, et al. Chest 2012, 141:7S-47S Kevin RUSHING et al. [facility] 2017, 70: 252-289 Performed By: #### 48026-3 # ### [facility] CLIA [id number] [address] [place] [address] [place] CBC PNL BLD AUTO Collected: 5 3:41 AM Status: F Source: [facility] Order Comment: Specimen Type : BLOOD SPECIMEN Ordering Facility: [facility] Address: [address] [place] [address] TYPE CODE TESTS RESULT OUT OF RANGE REFERENCE UNITS LAB 6690-2(LOINC) WBC # Bld Auto 15.26 High 3.70-11.00 k/uL LAB 789-8(LOINC) RBC # Bld Auto 3.09 Low 4.20-6.00 m/uL LAB 718-7(LOINC) Hgb Bld-mCnc 8.6 Low 13.0-17.0 g/dL LAB 4544-3(LOINC) Hct VFr Bld Auto 28.4 Low 39.0-51.0 % LAB 787-2(LOINC) MCV RBC Auto 91.9 80.0-100.0 fL LAB 785-6(LOINC) MCH RBC Qn Auto 27.8 26.0-34.0 pg LAB 786-4(LOINC) MCHC RBC Auto-mCnc 30.3 Low 30.5-36.0 g/dL LAB 78155-2(LOINC) RDW RBC-Rto 20.2 High 11.5-15.0 % LAB 777-3(LOINC) Platelet # Bld Auto 416 High 150-400 k/uL LAB 77471-1(LOINC) PMV Bld Auto 10.8 9.0-12.7 fL LAB 771-6(LOINC) nRBC # Bld Auto <0.01 <0.01 k/uL Performed By: #### 85847-0 # ### [facility] CLIA [id number] [address] [place] [address] STATES OF [facility] NURSING PROG Observed: 04/21/2025 3:00 AM Status: COMPLETED Source: [facility] HNO ID: [id number] Author: KRYSTAL BRODERICK RN Service: ? Author Type: Registered Nurse Type: Nursing Progress Note Filed: 04/21/2025 07:35 Note Text: 0300: Pt arrived to unit at this time via wheelchair. Pt safely ambulated from wheelchair to bed with minimal assistance - nurse there for stand by assist. Pt denies any Shortness of Breath, pain, or discomforts at this time. Team paged to inform on pt observed to be slightly nodding off through admission questions, pt states he is tired but not going to sleep. Pt educated on laying back in bed to avoid sliding or falling from bed. Pt refused and stated I want to sit on the side of the bed for now, that's more comfortable. Pt aaox3 and responds to verbal stimuli - but is unable to stay fully awake through questions. Awaiting reponse from team. 0323: EMAT called on pt due to immense blood coming from wound under right armpit area. Multiple fully saturated ABD pads and towels observed. Pt vitals on soft side. Pt remains nodding off on and off. Internal med MD Paez made awafre. Awaiting for MD in route and EMAT team. 0400: Pt made RN aware that he has a envelope of crain in pocket. Envelope was removed from pocket handed to RN with LEANN Almazan as witness. $1,202 dollars in [place] crain were accounted for, pt verfied amount. Crain is saturated in blood due to bleeding episode. Money was placed in Bio bag awaiting security to come bulk picker. automotive parts coordinator Vy made aware. 0420: Pt refused to have pictues taken of full wounds. Visible wounds photos taken. automotive parts coordinator Vy in the room to assit and witness at this time. 0435: MD Paez placed continued orders following elevated Lactic. MD's made aware pt continues to nodd off during admission questions. Pt continues to deny he is drowsy. Pt denies needs at this time. Stating he just wants to be left alone. 0500: Unable to complete pt admisison due to pt status at this time. Pt is sleepy -easy to arouse but continously nodding off throughout questions. automotive parts coordinator Mary made aware 0645: MD Paez aware pt status has remained the same, easily nodding off. states MICU will watch over pt but no indication for higher level of care at this time. Pt denies pain or discomfort at this time. Vital signs within pt baseline. LR's Bolus currently infusing due to ongoing elevated Lactic. Will inform incoming RN on pt status throughout care and continued plan of care. 0732: MD Paez made aware final shift vital was soft. Pt remains nodding off during shift change handoff. RACHEL Wilson at bedside with RN. RACHEL Wilson will follow up with continued plan of navarro. No further notes at this time. ED NOTE Observed: 04/21/2025 2:23 AM Status: COMPLETED Source: [facility] HNO ID: [id number] Author: CECILIO PICKETT RN Service: Emergency Medicine Author Type: Registered Nurse Type: ED Notes Filed: 04/21/2025 02:23 Note Text: Inpatient providers at bedside. ED NOTE Observed: 04/21/2025 2:13 AM Status: COMPLETED Source: [facility] HNO ID: [id number] Author: CECILIO PICKETT RN Service: Emergency Medicine Author Type: Registered Nurse Type: ED Notes Filed: 04/21/2025 02:15 Note Text: Pt noticed blood on his gown, upon assessment this RN found that his right nipple wound was bleeding. Bleeding controlled at this time. Cleaned under the pts right breast which had small amounts of brown/green pus. Cleaned the blood off of the pt as well. Replaced the petroleum gauze on the wound and placed abd pads and tape over the wound. Placed new gown on pt. ED NOTE Observed: 04/21/2025 1:45 AM Status: COMPLETED Source: [facility] HNO ID: [id number] Author: CECILIO PICKETT RN Service: Emergency Medicine Author Type: Registered Nurse Type: ED Notes Filed: 04/21/2025 01:45 Note Text: Back wounds redressed by this RN by pts request. Xeroform placed on wounds and then abd pads and tape placed over the xeroform. HISTORY PHYSICAL Observed: 04/21/2025 1:25 AM Status: COMPLETED Source: [facility] HNO ID: [id number] Author: KEV REYES MD Service: General Internal Medicine Author Type: Resident Type: H&P Filed: 04/21/2025 20:05 Note Text: Attestation signed by Kev Reyes MD at 04/21/2025 8:05 PM (Updated) [facility] STAFF PHYSICIAN NOTE OF PERSONAL INVOLVEMENT IN CARE I have reviewed the history and physical examination obtained and documented by the resident and I personally participated in the mendoza components. I have discussed the case and management of the patient's care. The following comments revise or confirm relevant mendoza components of their note. 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 Infectious disease was initially consulted for possible superimposed infection. ID recommended dermatology consult who did punch biopsy: Showing dermal fibrosis and a reactive vascular proliferation which is most consistent with reactive ischemic changes in the correct clinical context. Features of pyoderma gangrenosum, calciphylaxis not identified. Tissue cultures no growth on bacterial culture and NGTD on fungal/AFB. CT venogram chest/abdomen/pelvis with IVCON (10/19/2024): Bilateral brachiocephalic stenosis with bilateral subclavian vein occlusion without contrast opacification. Extensive venous collaterals with bilateral venous return via the azygos and hemiazygos systems. IR DR Jyoti Issa performed intervention (10/22/2024): Occlusive stenosis of the right innominate vein and super azygos SVC, tortuosity and narrowing in the central SVC/cavoatrial junction, status post successful venoplasty up to 8mm. Exchange of right-sided single-lumen tunneled LORENA catheter for a right-sided tunneled dual lumen dialysis catheter following central venoplasty, with tip in the expected location of the RIGHT ATRIUM, as detailed above. Removal of the left femoral tunneled dialysis catheter. Vascular surgery were consulted (10/21/2024): 1.Patient has had multiple access creations which have failed and findings suggestive of IVC and SVC stenosis 2.Continued dialysis through his catheter indefinitely 3.No need for further follow-up with Vascular Surgery Patient's reported that he was doing fine for the following few months. Since Jan, 2025, he started to have increased pain and was admitted in [place] 02/16-02/18/2025, received Vancomycin and Zosyn. For the past few weeks, his coumadin dosing was changed multiple times due to erratic INR. He started to notice bleeding from left chest wounds. Thus he drove to [facility] ED on 04/20 evening himself. On arrival, he was afebrile, BP 104/70, HR 100. WBC 13.20 (Nphil), Hgb 9.5, Plt 373. Lactate 2.7. Alk phos 178, Na 138, K 4.1, Mag 2.5. INR 3.3. CRP 22.1, ESR 133, In ED, he was given Tylenol, Fentanyl, Oxycodone, Midodrine and IV vancomycin. After admission to the floor, patient had an episode of significant bleeding from right chest wound. Hb dropped to 8.6, VB.27/44, Lactate 3.2. INR went up to 5.1. Patient was oriented x 3 though appeared ill, Consented for blood transfusion. 2 FFP and 1 pRBC ordered. Received hemodialysis. Assessment: 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 # Supra therapeutic INR on warfarin # Acute on chronic blood loss anemia # Lactic acidosis due to hypovolemia # ESRD on longstanding hemodialysis with very poor dialysis access # Secondary hyperparathyroidism with hyperphosphatemia # Mechanical MV placement with INR goal 2.5-3.5 # Poor detention prognosis PLAN: Repeat INR and post transfusion Hb/Hct. Continue empiric antibiotics with elevated ESR and CRP. Await dermatology consult. Continue to hold warfarin. Will start heparin gtt once bleeding controlled and hemodynamics improved. Consult IR for further intervention ? Venoplasty At high risk of sudden deterioration and possible need of MICU level of care Plan of care discussed with Patient, Family/Significant Other: , Care Management, RN, Consultants: Nephrology, IR, and Residents CARE COORDINATION: The majority of the visit was spent counseling and/or coordinating care for the patient. [id number] time was 75 minutes SIGNATURE: Kev Reyes MD DATE of SERVICE: April 21, 2025 TIME of SERVICE: 2:08 PM Internal Medicine HANDP Date of Service: April 21, 2025 Patient: Elia Weston Medical Record: [id number] HISTORY OF PRESENT ILLNESS History is very limited due to poor patient participation/ waxing and waning mental status Per Chart Review: CC: Left chest wall wound bleeding Elia Weston is a 45 year old male with a PMH significant for: - ESRD on HD MWF at [facility] through R. Tunneled HD catheter s/p multiple bilateral IJ TDC placement c/b thrombosis leading to chest and abdominal varices c/b SVC syndrome and chronic chest/abdominal wounds - Chronic chest and abdominal ulcerations/wounds with chronic pain likely s/p chest/abdominal wall varices c/b ischemia (biopsy 09/2024 shows dermal fibrosis and reactive vascular proliferation. Possibility of ischemic changes) - HTN - Anemia of CKD (HGB baseline 9-11) - CAD s/p CABG (07/2021) - Severe MS s/p metallic MVR (07/2021) on warfarin 2.5mg OD - Paroxysmal Atrial fibrillation s/p multiple DCCV on coumadin/amiodarone s/p maze procedure and RADHA clip (07/2021) - YEIMY - PE/DVT (2015) - Hypothyroidism - Secondary Hyperparathyroidism - Sensorineural hearing loss, unilateral, right ear, with restricted hearing on the contralateral side - Chronic hypotension on midodrine 20mg PO TID - Recent Hospital admission ([place] [place] 02/16/2025 - ) for R. Chest wall wound infection received Vancomycin and Zocyn Presenting to ED for same day duration of left chronic chest wall wound bleeding. Patient denies pain, purulent wound discharge, bad wound smell, fever, chills, cough, diarrhea, lightheadedness or dizziness. He mentions previous history of bleeding from his wounds but this time it is worse which made him come to the hospital. He looks chronically ill but not in acute distress. He has multiple ED visits/hospital admissions over the course of the past year for similar complains and chart review shows that he has been having his chronic wounds for around 3 years prior to presentation. He was hospitalized in [facility] (10/12/2024 - 11/22/2024) and had skin biopsy from wound site showing dermal fibrosis and reactive vascular proliferation. He was observed off antibiotics and discharged in stable condition. He got skin biopsy (2022) histologic features are those of ulcer with dermal fibrosis, vascular ectasia, and reactive vascular proliferation; histologic features are nonspecific; in the appropriate clinical setting, an ulcer related to chronic ischemia could be considered. Histologic features suggestive of pyoderma gangrenosum are not identified and (2024) showing dermal fibrosis and a reactive vascular proliferation which is most consistent with reactive ischemic changes in the correct clinical context. Tissue cultures no growth on bacterial culture and NGTD on fungal/AFB ED Course: - vitals 104/70, HR 100, SpO2 97% RA - labs WBC 13.20, Hgb 9.5, Alk phos 178, Na 138, K 4.1, Mag 2.5, INR 3.3, CRP 22.1, ESR 133, lactate 2.7 - imaging N/A - interventions: 1 g Tylenol PO, fentanyl 25 mcg x3,midodrine 20 mg PO, oxy 5 mg PO, IV vancomycin PAST MEDICAL HISTORY PAST MEDICAL HISTORY Diagnosis Date Anemia of chronic disorder Anuria Atrial fibrillation (HCC) 12/02/2018 on Coumadin and Amiodarone BMI 40.0-44.9, adult (HCC) ESRD (end stage renal disease) on dialysis ([facility]) 2005 ESRD from HTN Dialysis M,W,[facility] [phone] Essential hypertension, benign 1998 EKG 09/30 NL. Hearing loss of both ears History of mitral valve stenosis Hx of bacterial endocarditis Hyperparathyroidism due to end stage renal disease on dialysis ([facility]) Kidney disease 2005 ESRD due to HTN; on IHD since 2005 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 and scoliosis h/o this 3 y. Dx by xray. Mechanical complication of arteriovenous fistula surgically created ([facility]) Mechanical complication of dialysis catheter ([facility]) Mitral valve disease Morbid obesity ([facility]) MS (mitral stenosis) 10/08/2018 Transesophageal US YEIMY on CPAP Paroxysmal atrial fibrillation ([facility]) PE (pulmonary thromboembolism) ([facility]) Pelvic mass Pseudoaneurysm of AV hemodialysis fistula ([facility]) Wound of right side of back from friction/rubbing of jacket, goes to wound care center in [place] PAST SURGICAL HISTORY PAST SURGICAL HISTORY Procedure Laterality Date ARTERIOVENOUS FISTULA Left 08/29/2010 CAPSULE ENDOSCOPY 07/01/2023 CARDIOVERSION-ELECTIVE N/A 12/03/2018 200 joules synchronized - successful COLONOSCOPY 07/01/2023 EGD 06/27/2023 HERNIA REPAIR HX PAST SURGICAL HISTORY OF 08/29/2010 dialysis fistula left arm PAST SURGICAL HISTORY OF Right 03/2019 Right leg femoral vein to superficial femoral artery loop graft mid thigh REPAIR CLEFT LIP RMVL LEANN CVC W/O SUBQ PORT/TOBACCO PREVENTION HEALTH EDUCATOR 01/17/2013 SHX CARDIAC RADIOFREQUENCY ABLATION 08/21/2021 s/p Maze procedure SHX MITRAL VALVE REPLACEMENT 08/21/2021 FAMILY HISTORY FAMILY HISTORY Adopted: Yes Problem Relation Age of Onset None Mother None Father Aneurysm No Family History SOCIAL HISTORY Social History Tobacco Use Smoking status: Never Smokeless tobacco: Never Vaping Use Vaping status: Never Used Substance Use Topics Alcohol use: No Drug use: No CURRENT MEDICATIONS oxyCODONE IR, 5 mg, ONCE acetaminophen, 1,000 mg, ONCE vancomycin, 0.015 g/kg/dose, ONCE vancomycin dosing and monitoring per pharmacy, , As Directed ALLERGIES ALLERGIES Allergen Reactions Gabapentin Unknown, Other: See Comments Trazodone Other: See Comments Fidgety PHYSICAL EXAM VITAL SIGNS: BP 111/56 Pulse 65 Temp (Src) 98.7 (Oral) Resp 20 Wt 254 lb 13.6 oz (115.6kg) SpO2 96% O2 Therapy: Room Air Physical Exam Constitutional: Comments: Right and left anterior and posterior chronic wounds bleeding, no purulent discharge. Right flank/back chronic wounds Cardiovascular: Rate and Rhythm: Normal rate and regular rhythm. Pulmonary: Breath sounds: Normal breath sounds. No wheezing, rhonchi or rales. Abdominal: General: There is distension. Comments: Skin wound in LLQ LABORATORY STUDIES CBC: Recent Labs 04/20/251821 WBC 13.20* HB 9.5* HCT 31.3* PLT 373 MCV 92.3 RDWCV 20.6* NEUTP 69.5 ABSNEUT 9.18* LYMPHP 15.2 MONOP 12.6 EODINP 1.3 COAG: Recent Labs 04/20/25 182 APTT 43.3* INR 3.3* BMP: Recent Labs 04/20/25 182 GLUC 107* NA 138 K 4.1 CHLOR 97* CO2 19* ANION 22* BUN 50* CREAT 11.59* CHEM: Recent Labs 04/20/25 182 ALB 3.4* TPROT 8.9* CA 9.7 MG 2.5* HEPATIC: Recent Labs 04/20/251821 ALKPHOS 178* ALT 10 AST 17 TBILI 0.4 CARDIAC: No results for input(s): CKTEST, CKMB, CKMBP, TROPT, PBNP in the last 168 hours. RECENT IMAGING EK04/20/2025 ECHO: Last ECHO Result Conclusion ECHO Collected: 07/09/2023 7:09 AM (Final result) Impression: CONCLUSIONS: - Technically difficult exam due to body habitus and suboptimal positioning. - Exam indication: Initial evaluation of infective endocarditis with positive blood cultures - The left ventricle is normal in size. There is mild concentric left ventricular hypertrophy. Left ventricular systolic function is normal. EF = 64 ? 5% (2D biplane) Definity contrast used for endocardial border detection. - The right ventricle is normal in size. Right ventricular systolic function is normal. - On-X prosthetic mitral valve (size #25). The peak gradient is 17 mmHg and the mean gradient is 6 mmHg. Today gradients at 74bpm. Prior MV pk/mn gradient of 14/6mmHg. Unable to determine evaluate for MR do to shadowing of prosthetic valve. - There is moderate (2+) tricuspid valve regurgitation. - Estimated right ventricular systolic pressure is 36 mmHg consistent with mild pulmonary hypertension. Estimated right atrial pressure is 8 mmHg based on IVC assessment. - Recommend YONATHAN to better assess MVR for endocardits. - Exam was compared with the prior CC echocardiographic exam performed on 11/08/2021. TR appears more prominent, otherwise similar findings. * * * Final * * * ASSESSMENT AND PLAN Elia Weston is a 45 year old male with an extensive PMH as described in HPI significant for ESRD on HD (MWF) last session 04/18 (skipped Friday since he came to ED), CAD s/p CABG, severe MS s/p MVR, pAfib s/p maze procedure and RADHA clip and chronic chest/abdominal/back wounds (3 years) likely secondary to ischemia in context of SVC syndrome and multiple thrombosis presenting to ED for same day duration of left chronic chest wound bleeding. He denies any purulent discharge, bad smell, fever, chills and mentions that he had previous similar episodes. He mentions that his wounds are painful. He takes warfarin 5mg OD and last dose was Friday (! Day prior to presentation). Patient was seen at bedside in ED and was looking tired. He refused that we check his wounds as he was worried that it could bleed again. His wounds were covered. Patient was transferred to wray and says that he was bending to catch his phone on the bed when he noticed that he started bleeding from his right chest wound. Nursing paged us and AMET. Patient had significant amount of bleeding, soaked his clothes and the bed sheets and required continuous pressure until the bleeding stopped. He was awake and alert, his BP and HR were within normal range (BP= 104/59). VBG shows pH=7.27, lactate elevated=3.1. Elevated INR=4.3 (3.3 in ED). ACTIVE PROBLEMS #Chronic chest, abdomen, back wounds/ulcerations #Bleeding from wounds #Lactic Acidosis, Uremia - skin biopsy 09/2024 with dermal fibrosis and a reactive vascular proliferation which is most consistent with reactive ischemic changes in the correct clinical context. 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 Denies purulent discharge from wounds . - Leukocytosis + Elevated CRP/ESR + Elevated lactate on presentation; concerned for infected wounds/soft tissue infection - Acute rise in lactate in light of acute significant bleeding and drop in HGB (8.6 from 9.5 in ED) likely secondary to hypovolemia PLAN: - blood cultures 2x - Continue IV vancomycin started in ED and add zocyn for broader coverage of likely polymicrobial infection and multiple hospital visits - CT Chest, A/P with IVCON to evaluate possible underlying soft tissue infection - Cautious fluid resuscitation in light of acute bleeding and ESRD anuric on HD; 250cc LR over 30 minutes then reassess with VBG - Elevated lactate could be secondary to missing dialysis but acutely worsening: concern for ongoin infection r/o wound/soft tissue nfection - Consult ID - Consult Wound care - Consult derm in AM - Pain Control - Consider consulting plastic surgery for possible need of debridement? Incision and drainage if any abscess? #ESRD on HD via Right TDC #HTN #Secondary Hyperparathyroidism - iHD at [facility] through R. Tunneled HD catheter MWF - Last dialysis session Friday04/18/2025; missed Fri session because he presented to [facility] ED - anuric at baseline per patient - Serum P=9.7 PLAN: - Consult nephrology AM - Continue Sensipar #CAD s/p CABG #Severe MS s/p mechanical MVR on Caumadin #Paroxysmal Afib s/p multiple DCCV s/p Maze procedure + RADHA clip (07/2021) - arial fibrillation and severe mitral stenosis s/p mechanical mitral valve replacement with On-x valve (INR goal 2.5-3.5), Maze procedure and RADHA clip on 08/21/2021. - Goal INR 2.5- 3.5; on warfarin 2.5 mg every day; last dose of warfarin Thursday 04/19 PLAN: - Hold Warfarin - Daily INR #Anemia of Chronic Disease/ ESRD - Baseline hemoglobin 06-09 - iron studies 12/2024: iron 33, TIBC 156, Iron sat 21, ferritin 1327 PLAN: - Continue to monitor NOT FINAL UNTIL DISCUSSED WITH STAFF Marilu Jay MD Resident Physician PGY-1 Department of Internal Medicine Pager SENIOR RESIDENT ADDENDUM I participated in mendoza aspects of the history, review of systems, and performed my own independent physical examination and concur with the above findings by Dr. Gresham. Any additions or changes were made in the note. For further details please see above note. 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 - hx of hemorrhagic shock from bleeding abdominal wounds Presented to the ED today with worsening pain and bleeding from his chronic wounds that started the morning of. This is his 8th admissions for these symptoms this year, most recently 04/06 to 04/07. He was admitted to [facility] 10/12 to 11/22/24, skin biopsy showed Dermal fibrosis and reactive vascular proliferation. He was observed off of antibiotics and discharged in stable condition. ED Course - vitals 104/70, HR 100, SpO2 97% RA - labs WBC 13.20, Hgb 9.5, Alk phos 178, Na 138, K 4.1, Mag 2.5, INR 3.3, CRP 22.1, ESR 133, lactate 2.7 - imaging N/A - interventions: 1 g Tylenol PO, fentanyl 25 mcg x3,midodrine 20 mg PO, oxy 5 mg PO, IV vancomycin Per chart review, chest wounds have been bothering patient on and off for ~3 years. Biopsy of back wound in 2022 found: Biopsy 2022: Overall, the histologic features are those of ulcer with dermal fibrosis, vascular ectasia, and reactive vascular proliferation. These histologic features are nonspecific. In the appropriate clinical setting, an ulcer related to chronic ischemia could be considered. Histologic features suggestive of pyoderma gangrenosum are not identified. Clinical correlation is recommended. Patient has hx of multiple biopsies that are not consistent with calciphylaxis per chart. Skin biopsy 09/2024 dermal fibrosis and a reactive vascular proliferation which is most consistent with reactive ischemic changes in the correct clinical context. Features of pyoderma gangrenosum, calciphylaxis not identified. Tissue cultures no growth on bacterial culture and NGTD on fungal/AFB. #Chest, Back and Abdomen Chronic Wounds/Ulcerations - skin biopsy 09/2024 with dermal fibrosis and a reactive vascular proliferation which is most consistent with reactive ischemic changes in the correct clinical context. 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 Denies purulent discharge from wounds - leukocytosis on presentation, lactate 2.7, ESR and CRP elevated. Concern for infection Plan - continue IV vancomycin + IV zosyn - CT Chest, Ab/pelvis - ID consult - wound care consult - derm consult - pain control prn - consider consult to plastics surgery for further evaluation if CT suggestive of abscess, need for I+D ? #A fib s/p Maze + RADHA clip #Severe Mitral Valve Stenosis s/p mechanical mitral valve replacement - arial fibrillation and severe mitral stenosis s/p mechanical mitral valve replacement with On-x valve (INR goal 2.5-3.5), Maze procedure and RADHA clip on 08/21/2021. Goal INR 2.5- 3.5; on warfarin 2.5 mg every day; last dose of warfarin Thursday 04/19 Plan - hold warfarin - daily INR #ESRD on iHD MWF via Right TDC - last dialysis session Wednesday 04/18 - anuric at baseline Plan - nephrology consult for iHD - continue sensipar #Anemia of ESRD - baseline Hgb ~9-11 - iron studies 12/2024: iron 33, TIBC 156, Iron sat 21, ferritin 1327 Plan - CTM Brad Damon MD PGY3 Internal Medicine Pager [phone] SEPSIS LACTATE W/ REFLEX (INITIAL) Collected: 04/20/2025 11:47 PM Status: F Source: [facility] Order Comment: Specimen Type : BLOOD SPECIMEN Ordering Facility: [facility] Address: [address] [place] [address] TYPE CODE TESTS RESULT OUT OF RANGE REFERENCE UNITS LAB 30318-5(LOINC) Lactate Bld-sCnc 2.7 High <=2.0 mmol/L Performed By: #### SLACTR ## ## [facility] CLIA [id number] [address] [place] [address] BACTERIA BLD CULT Observed: 04/20/2025 11:47 PM Status: F Source: [facility] CULTURE, BLOOD: No growth 5 days Performed By: #### 600-7 ### # [facility] CLIA [id number] [address] [place] [address] BACTERIA BLD CULT Observed: 04/20/2025 11:47 PM Status: F Source: [facility] CULTURE, BLOOD: No growth 5 days Performed By: #### 600-7 ### # [facility] CLIA [id number] [address] [place] [address] ED NOTE Observed: 04/20/2025 10:25 PM Status: COMPLETED Source: [facility] HNO ID: [id number] Author: CECILIO PICKETT RN Service: Emergency Medicine Author Type: Registered Nurse Type: ED Notes Filed: 04/20/2025 22:26 Note Text: Pt back from bathroom, declining blood cultures to be drawn now until his wound dressings are changed, still a delay in care ED NOTE Observed: 04/20/2025 10:21 PM Status: COMPLETED Source: [facility] HNO ID: [id number] Author: CECILIO PICKETT RN Service: Emergency Medicine Author Type: Registered Nurse Type: ED Notes Filed: 04/20/2025 22:21 Note Text: Pt still in bathroom, denies needs ED NOTE Observed: 04/20/2025 9:47 PM Status: COMPLETED Source: [facility] HNO ID: [id number] Author: CECILIO PICKETT RN Service: Emergency Medicine Author Type: Registered Nurse Type: ED Notes Filed: 04/20/2025 21:48 Note Text: Checked on pt in the bathroom and pt is still having a bowel movement. Pt denies needs at this time. Care is still delayed at this point and providers are aware. ED NOTE Observed: 04/20/2025 8:58 PM Status: COMPLETED Source: [facility] HNO ID: [id number] Author: CECILIO PICKETT, RACHEL Service: Emergency Medicine Author Type: Registered Nurse Type: ED Notes Filed: 04/20/2025 21:54 Note Text: Assisted pt to the bathroom to have a BM. Pt walked with a slow gait but was steady on feet. Pt instructed to pull the call light when he is done. Still unable to draw blood cultures until pt back in room. ED NOTE Observed: 04/20/2025 8:39 PM Status: COMPLETED Source: [facility] HNO ID: [id number] Author: CECILIO PICKETT RN Service: Emergency Medicine Author Type: Registered Nurse Type: ED Notes Filed: 04/20/2025 20:41 Note Text: Went into pts room and educated the pt on what blood cultures are and informed the pt that he will need two sets of blood cultures. Pt reports that he would like some time before that is completed to call his and use the bathroom. Providers notified that there will be a delay in care. CONSULT PROG Observed: 04/20/2025 8:34 PM Status: COMPLETED Source: [facility] HNO ID: [id number] Author: JEAN-PAUL BORRERO RPh Service: Pharmacy Author Type: Pharmacist Type: Consult Progress Note Filed: 04/20/2025 20:36 Note Text: PHARMACY VANCOMYCIN DOSING NOTE Patient Name: Elia Weston Admission Date: 04/20/2025 Date of Consult: 04/20/2025 Time of Consult: 8:35 PM Indication: Skin/soft tissue infection Goal Range: 10-20 mcg/mL RECOMMENDATIONS/PLAN: Pharmacy consulted for vancomycin dosing for Elia Weston, a 45 year old male. 1. Patient is currently ordered Vancomycin 1.75 g IV q12h. Today is day 1 of therapy. 2. No vancomycin level has been drawn for this dosing regimen. 3. Will decrease vancomycin to 1.75 g with a dosing interval of .once with additional doses to be ordered once inpatient dialysis schedule established 4. The next vancomycin level will be ordered for around 4th dialysis session unless clinically indicated sooner. (Pharmacy will order) We will follow patient renal function, vancomycin levels and doses with you during the course of therapy. Additional recommendations will appear in follow up notes. If you have any questions[place] [phone]. Age: [age] year old Allergies: ALLERGIES Allergen Reactions Gabapentin Unknown, Other: See Comments Trazodone Other: See Comments Fidgety Last 3 Encounter Wt Readings: Date: Wt: 04/20/2025 115.6 kg (254 lb 13.6 oz) 12/28/2024 118 kg (260 lb 2.3 oz) 10/11/2024 118 kg (260 lb 2.3 oz) Last 1 Encounter Ht Readings: Date: Ht: 10/11/2024 177 cm (5' 9.69) Intermittent hemodialysis Temp (24hrs), Av.1 ?C (98.7 ?F), Min:37.1 ?C (98.7 ?F), Max:37.1 ?C (98.7 ?F) - Current Temp: 37.1 ?C (98.7 ?F) Labs BUN (mg/dL) Date Value 04/20/2025 50 (H) 12/28/2024 45 (H) 11/22/2024 71 (H) Creatinine (mg/dL) Date Value 04/20/2025 11.59 (H) 12/28/2024 8.82 (H) 11/22/2024 12.45 (H) WBC (k/uL) Date Value 04/20/2025 13.20 (H) 12/28/2024 7.60 11/22/2024 12.84 (H) Vancomycin Levels: Vancomycin, result (ug/mL) Date/Time Value 04/08/2007 0400 25.8 04/07/2007 0700 8.2 Vancomycin,Random (mg/L) Date/Time Value 11/17/2012 1940 10.2 (L) 11/13/2012 1228 25.5 Vancomycin (ug/mL) Date/Time Value 06/30/2023 2138 6.0 (L) Jean-Paul Borrero [facility] ED NOTE Observed: 04/20/2025 7:35 PM Status: COMPLETED Source: [facility] HNO ID: [id number] Author: LIZZY SANTANA CT Service: Emergency Medicine Author Type: Clinical Location And Measurement Technician Type: ED Notes Filed: 04/20/2025 19:36 Note Text: Safety and comfort care check round ED PROV NOTE Observed: 04/20/2025 7:31 PM Status: COMPLETED Source: [facility] HNO ID: [id number] Author: VERONIKA GAYLE MD Service: Emergency Medicine Author Type: Physician Type: ED Provider Notes Filed: 04/22/2025 13:03 Note Text: ED Provider Note Patient Name: Elia Weston : 1980 SERVICE DATE: 04/20/25 History Patient presents with: Wound Check: Pt with 3 wounds on his back, has been having intermittent drainage from wounds for 3 years, states recently started to drain again including some blood 45-year-old male with past medical history of end-stage renal disease (goes to dialysis Mondays, Wednesdays, Fridays), hypertension, A-fib on Coumadin, CVA, mitral valve stenosis status post mechanical valve placement, SVC stenosis, variceal induced wounds presents to the emergency department for pain to wound on left chest. Patient reports he had wounds to his chest and back for 3 years. For 1 week he has had increased pain and yellow drainage to the wound to the left chest. He noticed it was bleeding this morning. Denies fever, chills, nausea, vomiting. Last session of dialysis was 2 days ago. Denies smoking, alcohol use, illicit drug use. PAST MEDICAL HISTORY Diagnosis Date Anemia of chronic disorder Anuria Atrial fibrillation (HCC) 12/02/2018 on Coumadin and Amiodarone BMI 40.0-44.9, adult (HCC) ESRD (end stage renal disease) on dialysis (HCC) 2005 ESRD from HTN Dialysis M,W,[facility] [phone] Essential hypertension, benign 1998 EKG 09/30 NL. Hearing loss of both ears History of mitral valve stenosis Hx of bacterial endocarditis Hyperparathyroidism due to end stage renal disease on dialysis (HCC) Kidney disease 2006 ESRD due to HTN; on IHD since 2005 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 and scoliosis h/o this 3 y. Dx by xray. Mechanical complication of arteriovenous fistula surgically created (HCC) Mechanical complication of dialysis catheter (HCC) Mitral valve disease Morbid obesity (HCC) MS (mitral stenosis) 10/08/2018 Transesophageal US YEIMY on CPAP Paroxysmal atrial fibrillation (HCC) PE (pulmonary thromboembolism) (HCC) Pelvic mass Pseudoaneurysm of AV hemodialysis fistula (HCC) Wound of right side of back from friction/rubbing of jacket, goes to wound care center in [place] PAST SURGICAL HISTORY Procedure Laterality Date ARTERIOVENOUS FISTULA Left 08/29/2010 CAPSULE ENDOSCOPY 07/01/2023 CARDIOVERSION-ELECTIVE N/A 12/03/2018 200 joules synchronized - successful COLONOSCOPY 07/01/2023 EGD 06/27/2023 HERNIA REPAIR HX PAST SURGICAL HISTORY OF 08/29/2010 dialysis fistula left arm PAST SURGICAL HISTORY OF Right 03/2019 Right leg femoral vein to superficial femoral artery loop graft mid thigh REPAIR CLEFT LIP RMVL LEANN CVC W/O SUBQ PORT/TOBACCO PREVENTION HEALTH EDUCATOR 01/17/2013 SHX CARDIAC RADIOFREQUENCY ABLATION 08/21/2021 s/p Maze procedure SHX MITRAL VALVE REPLACEMENT 08/21/2021 FAMILY HISTORY Adopted: Yes Problem Relation Age of Onset None Mother None Father Aneurysm No Family History Social History Tobacco Use Smoking status: Never Smokeless tobacco: Never Vaping Use Vaping status: Never Used Substance and Sexual Activity Alcohol use: No Drug use: No Sexual activity: Never ALLERGIES Allergen Reactions Gabapentin Unknown, Other: See Comments Trazodone Other: See Comments Fidgety Review of Systems Constitutional: Negative for chills and fever. Gastrointestinal: Negative for nausea and vomiting. Skin: Positive for wound. Physical Exam Vitals BP Pulse Temp Temp src Resp SpO2 Weight Height 04/20/25 1616 04/20/25 1616 04/20/25 1616 04/20/25 1616 04/20/25 1616 04/20/25 1616 04/20/25 1844 -- 104/70 (!) 100 37.1 ?C (98.7 ?F) Oral 18 97 % 115.6 kg (254 lb 13.6 oz) Physical Exam Vitals and nursing note reviewed. Constitutional: General: He is not in acute distress. Appearance: He is not ill-appearing, toxic-appearing or diaphoretic. HENT: Mouth/Throat: Mouth: Mucous membranes are moist. Cardiovascular: Rate and Rhythm: Normal rate and regular rhythm. Comments: Mechanical noise of heart valve. Pulmonary: Effort: Pulmonary effort is normal. Breath sounds: Normal breath sounds. Chest: Comments: Large oval subcutaneous wound to left chest. Wounds to right chest and back. Neurological: Mental Status: He is alert. Psychiatric: Mood and Affect: Mood normal. Behavior: Behavior normal. Diagnostic Testing ED Labs Ordered and Reviewed PROTHROMBIN TIME - Abnormal; Notable for the following components: Result Value Ref Range PT Sec 33.2 (*) 9.7 - 13.0 sec INR 3.3 (*) 0.9 - 1.3 All other components within normal limits COMPLETE BLOOD COUNT AND DIFFERENTIAL - Abnormal; Notable for the following components: WBC 13.20 (*) 3.70 - 11.00 k/uL RBC 3.39 (*) 4.20 - 6.00 m/uL Hemoglobin 9.5 (*) 13.0 - 17.0 g/dL Hematocrit 31.3 (*) 39.0 - 51.0 % MCHC 30.4 (*) 30.5 - 36.0 g/dL RDW-CV 20.6 (*) 11.5 - 15.0 % Abs Neut 9.18 (*) 1.45 - 7.50 k/uL Abs Shelby 1.66 (*) <0.87 k/uL Abs Immature Gran 0.12 (*) <0.10 k/uL All other components within normal limits COMPREHENSIVE METABOLIC PANEL - Abnormal; Notable for the following components: Protein, Total 8.9 (*) 6.3 - 8.0 g/dL Albumin 3.4 (*) 3.9 - 4.9 g/dL Alkaline Phosphatase 178 (*) 38 - 113 U/L Glucose 107 (*) 74 - 99 mg/dL BUN 50 (*) 9 - 24 mg/dL Creatinine 11.59 (*) 0.73 - 1.22 mg/dL Chloride 97 (*) 98 - 107 mmol/L CO2 19 (*) 22 - 30 mmol/L Anion Gap 22 (*) 8 - 15 mmol/L Estimated Glomerular Filtration Rate 5 (*) >=60 mL/min/1.73m? All other components within normal limits MAGNESIUM - Abnormal; Notable for the following components: Magnesium 2.5 (*) 1.7 - 2.3 mg/dL All other components within normal limits ACTIVATED PARTIAL THROMBOPLASTIN TIME - Abnormal; Notable for the following components: APTT 43.3 (*) 23.0 - 32.4 sec All other components within normal limits Narrative: Unfractionated Heparin Therapeutic Ranges: Standard Heparin Nomogram: 53 to 78 seconds (anti-Xa level of 0.3 to 0.7 U/ml) Low Dose/ACS Nomogram: 49 to 67 seconds (anti-Xa level of 0.2 to 0.5 U/ml) Stroke Treatment Nomogram: 49 to 67 seconds (anti-Xa level of 0.2 to 0.5 U/ml) Note: The APTT therapeutic range has been determined for the current lot of laboratory APTT reagent in use throughout the [facility]. C-REACTIVE PROTEIN - Abnormal; Notable for the following components: CRP 22.1 (*) <0.9 mg/dL All other components within normal limits [facility] - ED (POC) TYPE + SCREEN Procedures ED Course / Clinical Impression Clinical Impressions as of 04/21/25 0126 Wound infection Wounds, multiple Wound pain Bleeding from wound MDM / Disposition / Plan Given acute pain to wound, drainage and bleeding, elevated inflammatory markers, and leukocytosis pt will be treated for infection with IV vancomycin. Due to his chronic conditions in the setting of presentation today he will be admitted for further care. History and Record Review External record(s) reviewed: other (see comments). Findings from review of other records: Was seen at outside [facility] ED two days ago. Differential Diagnoses - Wound infection - Mutiple wounds - Wound pain - Bleeding from wound - Abscess is less likely for the following reason(s): HANDP not suggestive - Septic shock is less likely for the following reason(s): HANDP not suggestive - Necrotizing soft tissue infeciton is less likely for the following reason(s): HANDP not suggestive Management Management of the patient was discussed with:admitting team Discussion with admitting team included: Internal Medicine Disposition The patient was admitted. SIGNATURE: Sally Perez PA-C Attending Note Attestation for: ARABELLA/CHIDI I have personally performed a face to face assessment of the patient and have reviewed the DIMPLE note. I personally made/approved the management plan and take responsibility for the patient management. I performed a substantive portion of the visit including all aspects of the following. My mendoza findings include: 45-year-old male, history of end-stage renal disease, history of A-fib on Coumadin, history of CVA, history of mechanical valve replacement, history of chronic chest wounds. Patient presents with worsening wound depth, drainage and bleeding from his left breast wound. Patient is also endorsing worsening of his back wounds as well. Clinically, patient is mildly hypotensive, has a history of hypotension and is on midodrine. Patient's inflammatory markers are elevated as well as his white blood cell count and given his skin and soft tissue findings with a presence of a mechanical valve, patient was admitted for cultures, broad-spectrum antibiotics, wound care regarding caution for concerns of superinfected chronic wounds with a risk for bacteremia given his mechanical heart valve. Patient remained awake and alert, did have mild hypotension, received his regular dose of midodrine. Wounds were dressed with Xeroform and ABD pads. No active bleeding while in the ED so INR was monitored but not reversed. Plan is for admission to medicine to the regular nursing floor. External record(s) reviewed: prior outpatient record. Findings from review of outpatient records: See my note Re-Evaluation vital signs in acceptable range Signature: Veronika Gayle MD Date: 04/22/2025 Time: 1:01 PM SHAWNGLENN CROSSA 04/21/25 0126 VERONIKA GAYLE 04/22/25 1303 ED NOTE Observed: 04/20/2025 7:31 PM Status: COMPLETED Source: [facility] HNO ID: [id number] Author: LIZZY SANTANA CT Service: ? Author Type: Clinical Location And Measurement Technician Type: ED Notes Filed: 04/20/2025 19:31 Note Text: EKG obtained COMP METAB 2000 PNL SERPL Collected: 6:22 PM Status: F Source: [facility] Order Comment: Specimen Type : BLOOD SPECIMEN Ordering Facility: [facility] Address: [address] [place] [address] TYPE CODE TESTS RESULT OUT OF RANGE REFERENCE UNITS LAB 2885-2(LOINC) Prot SerPl-mCnc 8.9 High 6.3-8.0 g/dL LAB 1751-7(LOINC) Albumin SerPl-mCnc 3.4 Low 3.9-4.9 g/dL LAB 92603-4(LOINC) Calcium SerPl-mCnc 9.7 8.5-10.2 mg/dL LAB 1975-2(LOINC) Bilirub SerPl-mCnc 0.4 0.2-1.3 mg/dL LAB 6768-6(LOINC) ALP SerPl-cCnc 178 High 38-113 U/L LAB 1920-8(LOINC) AST SerPl-cCnc 17 14-40 U/L LAB 1742-6(LOINC) ALT SerPl-cCnc 10 10-54 U/L LAB 2345-7(LOINC) Glucose SerPl-mCnc 107 High 74-99 mg/dL Result Comment: The [place] Diabetes Association (ADA) provides guidance for cutoff values for fasting glucose and random glucose. The ADA defines fasting as no caloric intake for at least 8 hours. Fasting plasma glucose results between 100 to 125 mg/dL indicate increased risk for diabetes (prediabetes). Fasting plasma glucose results greater than or equal to 126 mg/dL meet the criteria for diagnosis of diabetes. In the absence of unequivocal hyperglycemia, results should be confirmed by repeat testing. In a patient with classic symptoms of hyperglycemia or hyperglycemic crisis, random plasma glucose results greater than or equal to 200 mg/dL meet the criteria for diagnosis of diabetes. Reference: Standards of Medical Care in Diabetes 2016, [place] Diabetes Association. Diabetes Care. 2016.39(Suppl 1). LAB 3094-0(LOINC) BUN SerPl-mCnc 50 High 9-24 mg/dL LAB 2160-0(LOINC) Creat SerPl-mCnc 11.59 High 0.73-1.22 mg/dL LAB 2951-2(LOINC) Sodium SerPl-sCnc 138 136-144 mmol/L LAB 2823-3(LOINC) Potassium SerPl-sCnc 4.1 3.7-5.1 mmol/L LAB 2075-0(LOINC) Chloride SerPl-sCnc 97 Low 98-107 mmol/L LAB 2028-9(LOINC) CO2 SerPl-sCnc 19 Low 22-30 mmol/L LAB 66491-4(LOINC) Anion Gap SerPl-sCnc 22 High 8-15 mmol/L LAB 38821-1(LOINC) eGFRcr SerPlBld CKD-EPI 2020 5 Low >=60 mL/min/1. 73m??? Result Comment: Estimated Gl omerular Filtration Rate (eGFR) is calculated using the 2020 CKD-EPI creatinine equation. This equation utilizes serum creatinine, sex, and age as parameters. The creatinine assay has traceable calibration to isotope dilution-mass spectrometry. Refer to KDIGO guidelines for clinical interpretation. In patients with unstable renal function, e.g. those with acute kidney injury, the eGFR may not accurately reflect actual GFR. Performed By: #### 63751-3, 1988-01, #### [facility] CLIA [id number] [address] [place] [address] [place] CRP SERPL-MCNC Collected: 04/20/2025 6:22 PM Status: F Source: [facility] Order Comment: Specimen Type : BLOOD SPECIMEN Ordering Facility: [facility] Address: [address] [place] [address] TYPE CODE TESTS RESULT OUT OF RANGE REFERENCE UNITS LAB 1988-01([facility]) CRP SerPl-mCnc 22.1 High <0.9 mg/dL Performed By: #### 34055-3, 1988-01, #### [facility] CLIA [id number] [address] [place] [address] [place] MAGNESIUM SERPL-MCNC Collected: 04/20/2025 6:22 PM S tatus: F Source: [facility] Comment: Specimen Type : BLOOD SPECIMEN Ordering Facility: [facility] Address: [address] [place] [address] TYPE CODE TESTS RESULT OUT OF RANGE REFERENCE UNITS LAB ([facility]) Magnesium SerPl-mCnc 2.5 High 1.7-2.3 mg/dL Performed By: #### 45053-7, 1988-01, #### [facility] CLIA [id number] [address] [place] [address] [place] CBC W AUTO DIFF BLD Collected: 04/20/2025 6:[address] atus: F Source: [facility] Order Comment: Specimen Type : BLOOD SPECIMEN Ordering Facility: [facility] Address: [place] [address] TYPE CODE TESTS RESULT OUT OF RANGE REFERENCE UNITS LAB 6690-2([facility]) WBC # Bld Auto 13.20 High 3.70-11.00 k/uL LAB 789-8([facility]) RBC # Bld Auto 3.39 Low 4.20-6.00 m/ uL LAB 718-7([facility]) Hgb Bld-mCnc 9.5 Low 13.0-17.0 g/dL LAB 4544-3([facility]) Hct VFr Bld Auto 31.3 Low 39.0-51.0 % LAB 787-2([facility]) MCV RBC Auto 92.3 80.0-100.0 fL LAB 785-6([facility]) MCH RBC Qn Auto 28.0 26.0-34.0 p g LAB 786-4([facility]) MCHC RBC Auto-mCnc 30.4 Low 30.5-36.0 g/dL LAB 94785-0([facility]) RDW RBC-Rto 20.6 High 11.5-15.0 % LAB 777-3([facility]) Platelet # Bld Auto 373 150-400 k/uL LAB 53917-6([facility]) PMV Bld Auto 10.3 9.0-12.7 fL LAB 770-8(INC) Neutrophils/leuk NFr Bld Auto 69.5 % LAB 751-8(INC) Neutrophils # Bld Auto 9.18 High 1.45-7.50 k/uL LAB 736-9(INC) Lymphocytes/leuk NFr Bld Auto 15.2 % LAB 731-0(INC) Lymphocytes # Bld Auto 2.01 1.00-4.00 k/uL LAB 5905-5(INC) Monocytes/leuk NFr Bld Auto 12.6 % LAB 742-7(INC) Monocytes # Bld Auto 1.66 High <0.87 k/uL LAB 713-8(INC) Eosinophil/leuk NFr Bld Auto 1.3 % LAB 711-2([facility]) Eosinophil # Bld Auto 0.17 <0.46 k/uL LAB 706-2([facility]) Basophils/leuk NFr Bld Auto 0.5 % LAB 704-7([facility]) Basophils # Bld Auto 0.06 <0.11 k/uL LAB 49998-8([facility]) Imm Granulocytes/fley k NFr Bld Auto 0.9 % LAB 75820-2([facility]) Imm Granulocytes # Bld Auto 0.12 High <0.10 k/uL LAB 83283-0([facility]) nRBC/100 WBC Bld-Rto 0.0 /100 WBC LAB 771-6([facility]) nRBC # Bld Auto <0.01 <0.01 k/u L LAB 25368-1([facility]) Differential method Bld Auto Performed By: #### 4537-7, 7020-8 #### [facility] CLIA [id number] [address] [place] [address] [place] ESR BLD QN WESTRGRN Collected: 04/20/2025 6:[address] atus: F Source: [facility] Order Comment: Specimen Type : BLOOD SPECIMEN Ordering Facility: [facility] Address: [address] [place] [address] TYPE CODE TESTS RESULT OUT OF RANGE REFERENCE UNITS LAB 4537-7([facility]) ESR Bld Qn Westrgrn 133 High 0-15 mm/hr Performed By: #### 4537-7, 5 7020-8 #### [facility] CLIA [id number] [address] [place] [address] [place] TYPE + SCREEN Collected: 04/20/2025 6:22 PM Status: F Source: [facility] Order Comment: Specimen Type : BLOOD SPECIMEN Ordering Facility: [facility] Address: [address] [place] [address] TYPE CODE TESTS RESULT OUT OF RANGE REFERENCE UNITS LAB [id number] ABO B LAB [id number] RH Positive LAB [id number] ANTIBODY SCREEN Negative LAB [id number] TYPE AND SCREEN EXPIRATION 04/23/2025 23:59 Performed By: #### TSCR #### [facility] CLIA [id number] [address] [facility] [place] [address] [place] PT PNL PPP Collected: 04/20/2025 6:22 PM Status: F Source: [facility] Order Comment: Specimen Type : BLOOD SPECIMEN Ordering Facility: [facility] Address: [address] [place] [address] TYPE CODE TESTS RESULT OUT OF RANGE REFERENCE UNITS LAB 5902-2(LOINC) Prothrombin time 33.2 High 9.7-13.0 sec LAB 6301-6(LOINC) INR PPP 3.3 High 0.9-1.3 Result Comment: Vitamin K An tagonist (VKA) Therapeutic Range: INR 2 to 3 (Target INR of 2.5) Note: For patients treated with VKA drugs, such as warfarin, the [place] College [employer] Chest Physicians 2012 Guideline recommends a therapeutic INR range of 2 to 3 (target INR of 2.5). This recommendation includes high-risk patients with antiphospholipid syndrome with previous arterial or venous thromboembolism, current-generation mechanical or bioprosthetic aortic heart valve replacement. Note: Patients with mechanical aortic valve replacement and additional risk factors for thromboembolic events (atrial fibrillation, previous thromboembolism, LV dysfunction, hypercoagulable conditions) or an older generation mechanical AVR (i.e., ball in-Cage) or any mechanical MVR should have a INR therapeutic range of 2.5 to 3.5 (target INR of 3). Ranjit GH, et al. Chest 2012, 141:7S-47S Kevin RA, et al. [facility] 2017, 70: 252-289 Performed By: #### 28953-7, 12986-8 #### [facility] IA [id number] [address] [place], [place] [address] [place] [id number] [place] APTT PPP Collected: 6:22 PM Status: F Source: [facility] Order Comment: Specimen Type : BLOOD SPECIMEN Ordering Facility: [facility] Address: [address] [place] [address] TYPE CODE TESTS RESULT OUT OF RANGE REFERENCE UNITS LAB 53510-4(LOINC) aPTT PPP 43.3 High 23.0-32.4 sec Performed By: #### 98921-8, 14119-9 #### [facility] CLIA [id number] [address] [place] [address] [facility] ED TRIAGE NOTE Observed: 04/20/2025 4:21 PM Status: COMPLETED Source: [facility] HNO ID: [id number] Author: NORAH CALERO MD Service: Emergency Medicine Author Type: Physician Type: ED Triage Notes Filed: 04/20/2025 16:25 Note Text: ED TRIAGE PROVIDER NOTE Patient Name: Elia Weston Service Date: 04/20/25 BRIEF HPI: This is a 45 year old male who presents to the ED with: wound concern Last HD session on Friday Does not make urine No fever/chills 45 y.o. 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, and chronic pain BRIEF EXAM: Awake and Alert Non labored breathing INITIAL WORKUP AND DECISION MAKING: Orders Placed This Encounter PT/INR CBC + DIFF COMP METABOLIC PANEL (BMP+LFT) MAGNESIUM BLD Activated Partial Thromboplastin Time C-REACTIVE PROTEIN (CRP) Sedimentation Rate, [place] VENOUS BLOOD GAS - ED (POC) Type and Screen SIGNATURE: Norah Calero MD 29 Observed: 01/05/2025 2:45 PM Status: COMPLETED [facility] Encounter addended by: Jen Joel RN on: 01/05/2025 5:12 PM Actions taken: Order list changed, Diagnosis association updated PROGRESS NOTE Observed: 01/05/2025 2:45 PM Status: COMPLETED Source: [facility] Assessments Nursing Assessment/Reassessment Score (check box all that apply) General Physical Exam 20 [x] Comprehensive Assessment (hx, ROS, Risk Assessment, Wound hx) 25 [x] Wound and Skin Assessment Simple Wound Assessment / Reassessment - one wound 5 [] Complex Wound Assessment - multiple wounds (# of: 2 ) - multiply by 5 to get score 10 [x] Dermatologic / Skin Assessment (not related to wound area) 10 [x] Ostomy and/or Continence Assessment & Care Incontinence Assessment and Management 10 [] Ostomy Care Assessment and Management (repouching, etc) 20 [] Process Coordination of Care Simple Patient/Family Education for ongoing care 15 [x] Complex (extensive) Patient/Family Education for ongoing of care 20 [] Staff obtains Consent, Records, Test Results/Process Orders 10 [x] Staff telephones WATER CONSERVATION SPECIALIST, Nursing Homes/Clarify Orders 10 [] Routine Transfer to another Facility (non-emergent condition) 10 [] Routine Hospital Admission (non-emergent condition) 10 [] New Admissions/Insurance Auth/Ordering NPWT, skin substitute, etc. 15 [x] Emergency Hospital Admission (emergent condition) 20 [] Simple Discharge Coordination 10 [] Complex (extensive) Discharge Coordination 15 [] Special Needs Pediatric / Minor Patient Management 10 [] Isolation Patient Management 10 [] Hearing/Language/Visual Special Needs 15 [] Assessment of Community Assistance (transportation, discharge planning) 15 [] Additional Assistance / Altered Mentation 15 [] Support Surface Assessment (bed, cushion, seat) 15 [] Interventions Wound Cleansing/Measurement Simple Wound Cleansing - one wound 5 [] Complex Wound Cleansing - multiple wounds (# of: 2) multiply by 5 to get score 10 [x] Wound Imaging (photographs - any number of wounds) 5 [x] Wound Tracing (instead of photographs) 5 [] Simple Wound Measurements - one wound 5 [] Complex Wound Measuremnts - multiple wounds (#of: 2) multiply by 5 to get score 10 [x] Wound Dressings Small Wound Dressing (one or multiple wounds (# of: 0) multiply by 10 to get score 0 [] Medium Wound Dressing (one or multiple wounds (# of: 2) multiply by 15 to get score 30 [x] Large Wound Dressing (one or multiple wounds (# of: 0) multiply by 20 to get score 0 [] Application of Medication - injection 10 [] Miscellaneous External Ear Exam 5 [] Specimen Collection (culture, biopsies, blood, body fluids, etc) 5 [] Specimen/Culture sent or taken to lab for analysis 5 [] Patient Transfer (multiple staff/Crys lift) 10 [] Simple Staple/Suture Removal (25 or less) 5 [] Complex Staple/Suture Removal (26 or more) 10 [] Hypo/Hyperglycemic Management 10 [] Ankle/Brachial Index (RACHNA) 15 [] Total Points - Use to Determine Level of Clinic Visit 160 Points [place]: Level 1 (1-35 Points) Level 2 (40-75 Points) Level 3 (80-115 Points) Level 4 (120-155 Points) Level 5 (160 or more Points) 37 Observed: 01/05/2025 2:45 PM Status: COMPLETED Source: [facility] Follow-up Appointments: Return Appointment in 1 week. Call [place] [facility] at [phone], [facility] at [phone], or [facility] at [phone]. will call when she looks at her schedule for follow up appointment Edema/Swelling: Avoid standing for long periods of time, elevate legs to the level of the heart or above 30 minutes daily and/or when sitting. Offloading: Avoid pressure to wound site as often as possible. ANY AMOUNT OF PRESSURE WILL DELAY WOUND HEALING. Offloading wound site is extremely important to assist in wound healing. Avoid friction and shearing, do not scoot or slide. Lift your weight up when repositioning. Bathing/Showering: OK to shower but do not soak or submerge wound. Use an antibacterial soap, such as dial to cleanse wound area once the rest of the body has been washed. Nutrition: Follow diet per physician instructions such as increasing protein intake to promote wound healing 100 gram of protein a day If diabetic-Monitor blood sugars to help with wound healing. High blood sugars can affect wound healing. Wound Care: Chest and back (Daily) Cleanse wound with mild soap and water and pat dry Apply Xeroform to wound beds ABD Tape with Medifix Signs and symptoms of wound infection: - fever - flu-like symptoms - pus or unusual drainage - foul odor - worsening of wound - spreading redness or warmth around the wound - increased pain - increasing and/or uncontrolled blood sugar for diabetics Please call the wound center at [phone] if you are experiencing this. If we are closed and you are unable to reach us in person please go to the ER. PROGRESS NOTE Observed: 01/05/2025 2:45 PM Status: COMPLETED Source: [facility] [place] [address] [place] [address] Loc: [phone] Wound Care Visit - New Patient Progress Note CHIEF COMPLAINT: Wound Check HISTORY OF PRESENT ILLNESS: The patient is a 44 y.o. male with multiple open wounds of chest, abdomen and back. States wounds have been present for several years. Uncertain origin. Has sought wound care in [place] in past, 01/2022-01/2024. States he is on warfarin and wounds often bleed. Has been to ER on several recent occasions with bleeding. Currently using xeroform to wounds. He is ESRD on dialysis. PAST MEDICAL HISTORY Past Medical History: Diagnosis Date ESRD (end stage renal disease) (HCC) KIDNEY TRANSPLANT LIST Hemodialysis patient ([facility]/HCC) ([facility]) FRIDAY, FRIDAY AND FRIDAY IN [place] Hx of blood clots 2016 PE AND ON ELIQUIS Hypertension NO MEDICATION Morbidly obese ([facility]) 03/26/2019 BMI 43.03 YEIMY on CPAP PAST SURGICAL HISTORY Past Surgical History: Procedure Laterality Date CLEFT PALATE REPAIR COLONOSCOPY OTHER SURGICAL HISTORY 10/06/2018 DIALYSIS CATHETER CHNG TRANSESOPHAGEAL ECHOCARDIOGRAM 10/08/2018 Medications reviewed Medical history reviewed Allergies reviewed Current Medications: Current Outpatient Medications: cinacalcet (Sensipar) 60 MG tablet, Take 60 mg by mouth daily. Take with food or shortly afer a meal. Swallow tablet whole; do not break or divide., Disp: , Rfl: Melatonin-Pyridoxine (MELATONEX PO), Take by mouth., Disp: , Rfl: midodrine (Proamatine) 5 MG tablet, Take 5 mg by mouth 3 times daily., Disp: , Rfl: oxyCODONE ER (OxyCONTIN) 10 MG 12 hr tablet, 10 mg. Do not crush, chew, or split., Disp: , Rfl: REVIEW OF SYSTEMS: Review of Systems Constitutional: Negative. Negative for chills, fatigue and fever. Respiratory: Negative. Cardiovascular: Negative. Skin: Positive for wound. Negative for color change (from typical for patient) and rash. PHYSICAL EXAM: BP (!) 141/80 Pulse 92 Temp 36.9 ?C (98.4 ?F) Resp 18 Ht 5' 10 (1.778 m) Wt 247 lb (112 kg) BMI 35.44 kg/m? Physical Exam Vitals reviewed. Constitutional: General: He is not in acute distress. Appearance: Normal appearance. He is not ill-appearing or toxic-appearing. HENT: Ears: Comments: Hearing to conversational voice is normal. Pulmonary: Effort: Pulmonary effort is normal. Breath sounds: No wheezing (No audible wheeze). Skin: General: Skin is warm and dry. Comments: Multiple wounds are present and covered. He has too much pain to allow all to be undressed and evaluated. Today L abdomen and central back wounds evaluated. They are chronic wounds. No bleeding. Mostly dry. Tender. They do not appear to be cellulitic. See photos and measurements. Neurological: Mental Status: He is alert and oriented to person, place, and time. Psychiatric: Thought Content: Thought content normal. Wound/Incision 01/05/25 Neuropathic Abdomen Left;Lower (Active) Wound Image 01/05/25 153 Site Assessment Granulation;Pale;[place];Painful;Sloughing 01/05/25 1531 [place]-Wound Assessment Dry 01/05/25 1531 Wound Length (cm) 2.2 cm 01/05/25 1531 Wound Width (cm) 5.9 cm 01/05/25 1531 Wound Surface Area (cm^2) 12.98 cm^2 01/05/25 1531 Wound Depth (cm) 0.2 cm 01/05/25 1531 Wound Volume (cm^3) 2.596 cm^3 01/05/25 1531 Drainage Description Serosanguineous 01/05/25 1531 Odor None 01/05/25 1531 Drainage Amount Moderate 01/05/25 1531 Treatments Irrigation 01/05/25 1531 Wound/Incision 01/05/25 Neuropathic Back Midline;Left (Active) Wound Image 01/05/25 1601 Site Assessment Black;Brown;Fragile;Painful;[place];Sloughing 01/05/25 1601 Sky[place]-Wound Assessment Dry 01/05/25 1601 Wound Length (cm) 13.5 cm 01/05/25 1601 Wound Width (cm) 14.7 cm 01/05/25 1601 Wound Surface Area (cm^2) 198.45 cm^2 01/05/25 1601 Wound Depth (cm) 0.4 cm 01/05/25 1601 Wound Volume (cm^3) 79.38 cm^3 01/05/25 1601 Drainage Description Serosanguineous 01/05/25 1601 Odor None 01/05/25 1601 Drainage Amount Moderate 01/05/25 1601 Treatments Cleansed 01/05/25 1601 PLAN: Patient examined and evaluated. Pt ed, reassure Patient pain level too high for all wounds to be evaluated. Nurse proceeded necessarily slowly and carefully. had an appointment she could not miss, so it was determined to briefly evaluate only L abdomen and back wounds. For now, we will use xeroform as he had been. He had to leave immediately, so on reschedule, we will continue overall evaluation and plan. Pt will reschedule at his earliest availability. To ER, if sudden or severe change. Pt agrees with this plan. Patient understands all that has been explained and wishes to proceed with current treatment. Patient understands all risks, benefits, procedures, skye-operative management, and possible complications. All questions answered and no guarantees made or implied. Please see attached Discharge Instructions METAB 2000 PNL SERPL Collected: 11:18 PM Status: F Source: [facility] Order Comment: Specimen Type : BLOOD SPECIMEN Ordering Facility: [facility] Address: [address] [place] [address] TYPE CODE TESTS RESULT OUT OF RANGE REFERENCE UNITS LAB 2885-2(LOINC) Prot SerPl-mCnc 8.7 High 6.3-8.0 g/dL LAB 1751-7(LOINC) Albumin SerPl-mCnc 3.7 Low 3.9-4.9 g/dL LAB 42395-4(LOINC) Calcium SerPl-mCnc 9.3 8.5-10.2 mg/dL LAB 1975-2(LOINC) Bilirub SerPl-mCnc 0.3 0.2-1.3 mg/dL LAB 6768-6(LOINC) ALP SerPl-cCnc 167 High 38-113 U/L LAB 1920-8(LOINC) AST SerPl-cCnc 21 14-40 U/L LAB 1742-6(LOINC) ALT SerPl-cCnc 14 10-54 U/L LAB 2345-7(LOINC) Glucose SerPl-mCnc 93 74-99 mg/dL Result Comment: The [place] Diabetes Association (ADA) provides guidance for cutoff values for fasting glucose and random glucose. The ADA defines fasting as no caloric intake for at least 8 hours. Fasting plasma glucose results between 100 to 125 mg/dL indicate increased risk for diabetes (prediabetes). Fasting plasma glucose results greater than or equal to 126 mg/dL meet the criteria for diagnosis of diabetes. In the absence of unequivocal hyperglycemia, results should be confirmed by repeat testing. In a patient with classic symptoms of hyperglycemia or hyperglycemic crisis, random plasma glucose results greater than or equal to 200 mg/dL meet the criteria for diagnosis of diabetes. Reference: Standards of Medical Care in Diabetes 2016, [place] Diabetes Association. Diabetes Care. 2016.39(Suppl 1). LAB 3094-0(LOINC) BUN SerPl-mCnc 45 High 9-24 mg/ dL LAB 2160-0(LOINC) Creat SerPl-mCnc 8.82 High 0.73-1.22 mg/dL LAB 2951-2(LOINC) Sodium SerPl-sCnc 137 136-144 mmol/L LAB 2823-3(LOINC) Potassium SerPl-sCnc 4.9 3.7-5.1 mmol/L LAB 2075-0(LOINC) Chloride SerPl-sCnc 95 Low 98-107 mmol/L LAB 2028-9(LOINC) CO2 SerPl-sCnc 21 Low 22-30 mmo l/L LAB 16236-5(LOINC) Anion Gap SerPl-sCnc 21 High 8-15 mmol/L LAB 53240-9(LOINC) Creatinine + eGFR Pnl SerPlBld 7 Low >=60 mL/min/1 .73m??? Result Comment: Estimated Gl omerular Filtration Rate (eGFR) is calculated using the 2020 CKD-EPI creatinine equation. This equation utilizes serum creatinine, sex, and age as parameters. The creatinine assay has traceable calibration to isotope dilution-mass spectrometry. Refer to KDIGO guidelines for clinical interpretation. In patients with unstable renal function, e.g. those with acute kidney injury, the eGFR may not accurately reflect actual GFR. Performed By: #### 88539-9 # ### [facility] CLIA [id number] [address] [place] [address] [place] PT PNL PPP Collected: 11:18 PM Status: F Source: [facility] Order Comment: Specimen Type : BLOOD SPECIMEN Ordering Facility: [facility] Address: [address] [place] [address] TYPE CODE TESTS RESULT OUT OF RANGE REFERENCE UNITS LAB 5902-2(LOINC) Prothrombin time 19.8 High 9.7-13.0 sec LAB 6301-6(LOINC) INR PPP 1.9 High 0.9-1.3 Result Comment: Vitamin K An tagonist (VKA) Therapeutic Range: INR 2 to 3 (Target INR of 2.5) Note: For patients treated with VKA drugs, such as warfarin, the [place] College of Chest Physicians 2012 Guideline recommends a therapeutic INR range of 2 to 3 (target INR of 2.5). This recommendation includes high-risk patients with antiphospholipid syndrome with previous arterial or venous thromboembolism, current-generation mechanical or bioprosthetic aortic heart valve replacement. Note: Patients with mechanical aortic valve replacement and additional risk factors for thromboembolic events (atrial fibrillation, previous thromboembolism, LV dysfunction, hypercoagulable conditions) or an older generation mechanical AVR (i.e., ball in-Cage) or any mechanical MVR should have a INR therapeutic range of 2.5 to 3.5 (target INR of 3). Alanatt GH, et al. Chest 2012, 141:7S-47S Kevin RA, et al. [facility] 2017, 70: 252-289 Performed By: #### 92146-6 # ### [facility] CLIA [id number] [address] [place] [address] [place] CBC W AUTO DIFF BLD Collected: 12/28/2024 11:18 PM S tatus: F Source: [facility] Order Comment: Specimen Type : BLOOD SPECIMEN Ordering Facility: [facility] Address: [address] [place] [address] TYPE CODE TESTS RESULT OUT OF RANGE REFERENCE UNITS LAB 6690-2(LOINC) WBC # Bld Auto 7.60 3.70-11.00 k/uL LAB 789-8(LOINC) RBC # Bld Auto 3.26 Low 4.20-6.00 m/ uL LAB 718-7(LOINC) Hgb Bld-mCnc 9.4 Low 13.0-17.0 g/dL LAB 4544-3([facility]) Hct VFr Bld Auto 30.7 Low 39.0-51.0 % LAB 787-2([facility]) MCV RBC Auto 94.2 80.0-100.0 fL LAB 785-6([facility]) MCH RBC Qn Auto 28.8 26.0-34.0 p g LAB 786-4([facility]) MCHC RBC Auto-mCnc 30.6 30.5-36.0 g/dL LAB 89809-4([facility]) RDW RBC-Rto 18.8 High 11.5-15.0 % LAB 777-3([facility]) Platelet # Bld Auto 243 150-400 k/uL LAB 96230-6([facility]) PMV Bld Auto 10.7 9.0-12.7 fL LAB 770-8([facility]) Neutrophils/leuk NFr Bld Auto 72.0 % LAB 751-8([facility]) Neutrophils # Bld Auto 5.47 1.45-7.50 k/uL LAB 736-9([facility]) Lymphocytes/leuk NFr Bld Auto 11.4 % LAB 731-0([facility]) Lymphocytes # Bld Auto 0.87 Low 1.00-4.00 k/uL LAB 5905-5([facility]) Monocytes/leuk NFr Bld Auto 12.1 % LAB 742-7([facility]) Monocytes # Bld Auto 0.92 High <0.87 k/uL LAB 713-8([facility]) Eosinophil/leuk NFr Bld Auto 3.4 % LAB 711-2([facility]) Eosinophil # Bld Auto 0.26 <0.46 k/uL LAB 706-2([facility]) Basophils/leuk NFr Bld Auto 0.4 % LAB 704-7([facility]) Basophils # Bld Auto 0.03 <0.11 k/uL LAB 03016-8([facility]) Imm Granulocytes/fely k NFr Bld Auto 0.7 % LAB 52374-0([facility]) Imm Granulocytes # Bld Auto 0.05 <0.10 k/uL LAB 21747-7([facility]) nRBC/100 WBC Bld-Rto 0.0 /100 WBC LAB 771-6(LOINC) nRBC # Bld Auto <0.01 <0.01 k/u L LAB 85790-1([facility]) Differential method Bld Auto Performed By: #### 23661-3 # ### [facility] CLIA [id number] [address] [place] [address] [facility] ED PROV NOTE Observed: 12/28/2024 11:11 PM Status: COMPLETED Source: [facility] HNO ID: [id number] Author: SILVIANO BELL MD Service: Emergency Medicine Author Type: Physician Type: ED Provider Notes Filed: 12/30/2024 14:23 Note Text: ED Provider Note Patient Name: Elia Weston : 1980 SERVICE DATE: 12/28/24 History Patient presents with: Wound Check: Patient here for increased pain and bleeding of his multiple wounds Elia Weston is a 44 year old male with PMHx of ESRD on iHD MWF, HTN, Afib s/p MV replacement (on coumadin), secondary hyperparathyroidism, 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 The patient states that for the last month he has had to come to the ED for bleeding at least once a week. The bleeding is from chronic wounds that he has on his chest, abdomen, and back. He states that they start bleeding out of the blue, with no inciting event. Earlier today, one of the wounds on his back started bleeding 15 minutes after his changed the dressings. He called the ambulance, but the bleeding had stopped by the time they got there. The patient has had these wounds for at least 4 years. At home, his does dressing changes consisting of xeroform and abds secured with tape. There is also a home health nurse that comes 1-2 nights a week. He manages his pain with Oxycodone 10mg up to 3 times a day. Of note, the patient presented to a [facility] ED 2 days ago for bleeding from one of the chest wounds. His INR was noted to be borderline supra therapeutic at that time (3.2). Bleeding was controlled with direct pressure and gelfoam application. He was discharged home. Per chart review, the patient was previously evaluated by Dermatology and Plastics while admitted in 09/2024. Plastics deemed no surgical intervention needed for superficial ulcerations. Dermatology did a punch biopsy, with results suspicious for an ischemic origin of the ulcerations. PAST MEDICAL HISTORY Diagnosis Date Anemia of chronic disorder Anuria Atrial fibrillation (HCC) 12/02/2018 on Coumadin and Amiodarone BMI 40.0-44.9, adult (HCC) ESRD (end stage renal disease) on dialysis (HCC) 2005 ESRD from HTN Dialysis M,W,[facility] [phone] Essential hypertension, benign 1998 EKG 09/30 NL. Hearing loss of both ears History of mitral valve stenosis Hx of bacterial endocarditis Hyperparathyroidism due to end stage renal disease on dialysis (HCC) Kidney disease 2005 ESRD due to HTN; on IHD since 2005 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 and scoliosis h/o this 3 y. Dx by xray. Mechanical complication of arteriovenous fistula surgically created (HCC) Mechanical complication of dialysis catheter (HCC) Mitral valve disease Morbid obesity (HCC) MS (mitral stenosis) 10/08/2018 Transesophageal US YEIMY on CPAP Paroxysmal atrial fibrillation (HCC) PE (pulmonary thromboembolism) ([facility]) Pelvic mass Pseudoaneurysm of AV hemodialysis fistula ([facility]) Wound of right side of back from friction/rubbing of jacket, goes to wound care center in [place] PAST SURGICAL HISTORY Procedure Laterality Date ARTERIOVENOUS FISTULA Left 08/29/2010 CAPSULE ENDOSCOPY 07/01/2023 CARDIOVERSION-ELECTIVE N/A 12/03/2018 200 joules synchronized - successful COLONOSCOPY 07/01/2023 EGD 06/27/2023 HERNIA REPAIR HX PAST SURGICAL HISTORY OF 08/29/2010 dialysis fistula left arm PAST SURGICAL HISTORY OF Right 03/2019 Right leg femoral vein to superficial femoral artery loop graft mid thigh REPAIR CLEFT LIP RMVL LEANN CVC W/O SUBQ PORT/TOBACCO PREVENTION HEALTH EDUCATOR 01/17/2013 SHX CARDIAC RADIOFREQUENCY ABLATION 08/21/2021 s/p Maze procedure SHX MITRAL VALVE REPLACEMENT 08/21/2021 FAMILY HISTORY Adopted: Yes Problem Relation Age of Onset None Mother None Father Aneurysm No Family History Social History Tobacco Use Smoking status: Never Smokeless tobacco: Never Vaping Use Vaping status: Never Used Substance and Sexual Activity Alcohol use: No Drug use: No Sexual activity: Never ALLERGIES Allergen Reactions Gabapentin Unknown, Other: See Comments Trazodone Other: See Comments Fidgety Review of Systems Constitutional: Negative for chills and fever. Respiratory: Negative for cough, chest tightness and shortness of breath. Cardiovascular: Negative for chest pain and leg swelling. Gastrointestinal: Negative for abdominal pain, diarrhea, nausea and vomiting. Skin: Positive for wound. Painful ulcerations on chest, abdomen, and back Neurological: Negative for syncope, light-headedness and headaches. Physical Exam Vitals [12/28/241941] BP Pulse Temp Temp src Resp SpO2 Weight Height 102/58 87 36.7 ?C (98.1 ?F) Oral 16 98 % 118 kg (260 lb 2.3 oz) -- Physical Exam Constitutional: General: He is not in acute distress. Appearance: He is not toxic-appearing. Cardiovascular: Rate and Rhythm: Normal rate and regular rhythm. Pulses: Normal pulses. Heart sounds: Normal heart sounds. Pulmonary: Effort: Pulmonary effort is normal. No respiratory distress. Breath sounds: Normal breath sounds. Abdominal: General: Abdomen is flat. There is no distension. Palpations: Abdomen is soft. Tenderness: There is no abdominal tenderness. Skin: General: Skin is warm and dry. Capillary Refill: Capillary refill takes less than 2 seconds. Findings: Lesion present. Comments: 3 superficial ulcerations noted to the mid back. 2 with fibrogranular base, and 1 with scab overlying. 2 small superficial ulcerations to left lateral abdomen with fibrogranular base. 1 ulceration on each breast. Right with fibrous base, left with dry fibrogranular base. No active bleeding or signs of infection noted to any ulceration. Neurological: General: No focal deficit present. Mental Status: He is alert and oriented to person, place, and time. Diagnostic Testing ED Labs Ordered and Reviewed PROTHROMBIN TIME - Abnormal; Notable for the following components: Result Value Ref Range PT Sec 19.8 (*) 9.7 - 13.0 sec INR 1.9 (*) 0.9 - 1.3 All other components within normal limits COMPLETE BLOOD COUNT AND DIFFERENTIAL - Abnormal; Notable for the following components: RBC 3.26 (*) 4.20 - 6.00 m/uL Hemoglobin 9.4 (*) 13.0 - 17.0 g/dL Hematocrit 30.7 (*) 39.0 - 51.0 % RDW-CV 18.8 (*) 11.5 - 15.0 % Abs Lymph 0.87 (*) 1.00 - 4.00 k/uL Abs Shelby 0.92 (*) <0.87 k/uL All other components within normal limits COMPREHENSIVE METABOLIC PANEL - Abnormal; Notable for the following components: Protein, Total 8.7 (*) 6.3 - 8.0 g/dL Albumin 3.7 (*) 3.9 - 4.9 g/dL Alkaline Phosphatase 167 (*) 38 - 113 U/L BUN 45 (*) 9 - 24 mg/dL Creatinine 8.82 (*) 0.73 - 1.22 mg/dL Chloride 95 (*) 98 - 107 mmol/L CO2 21 (*) 22 - 30 mmol/L Anion Gap 21 (*) 8 - 15 mmol/L Estimated Glomerular Filtration Rate 7 (*) >=60 mL/min/1.73m? All other components within normal limits Procedures ED Course / Clinical Impression ED Course as of 12/29/24 0024 Jose Carlos Goncalves's Documentation FriDec 28, 20248 PT/INR(!): PT Sec 19.8(!) PT INR 1.9(!) No longer supra therapeutic 2341 CBC + DIFF(!): WBC 7.60 RBC 3.26(!) Hemoglobin 9.4(!) Hematocrit 30.7(!) MCV 94.2 MCH 28.8 MCHC 30.6 RDW-CV 18.8(!) Platelet Count 243 MPV 10.7 Neut% 72.0 Abs Neut (ANC) 5.47 Lymph% 11.4 Abs Lymph 0.87(!) Shelby% 12.1 Abs Shelby 0.92(!) Eosin% 3.4 Abs Eosin 0.26 Baso% 0.4 Abs Baso 0.03 Immature Gran % 0.7 IMMATURE GRANS (ABS) 0.05 NRBC 0.0 Absolute nRBC <0.01 DTYPE Auto No leukocytosis. Anemia stable compared to prior values. 2356 COMP METABOLIC PANEL (BMP+LFT)(!): Protein, Total 8.7(!) Albumin 3.7(!) Calcium 9.3 Bilirubin, Total 0.3 Alkaline Phosphatase 167(!) AST 21 ALT 14 Glucose 93 BUN 45(!) Creatinine 8.82(!) Sodium 137 Potassium 4.9 Chloride 95(!) CO2 21(!) Anion Gap 21(!) eGFR 7(!) No hyperkalemia Clinical Impressions as of 12/29/24 0024 Chronic ulcer of back (HCC) Ulcer of abdomen wall, limited to breakdown of skin (HCC) Anemia due to chronic kidney disease, on chronic dialysis (HCC) Ulcer of skin of breast (HCC) MDM / Disposition / Plan Mr. Weston is a 44 year old male presenting with concerns of bleeding from chronic back ulcerations. Upon presentation, the patient is afebrile and hemodynamically stable. On exam, there are 3 superficial ulcerations noted to the mid back, 1 on each breast, and 2 on the left lateral abdomen without acute bleeding or signs of infection. Based on the appearance, ulcers likely ischemic in nature given chronicity and fibrogranular base. Labs notable for anemia, which is chronic for patient. INR is no longer supra therapeutic. CMP with known elevated kidney function levels given ESRD and no hyperkalemia. All dressing were removed and wounds irrigated with saline. New dressings applied consisting of xeroform, abd, and paper tape. Follow up appointment ordered for Dermatology as patient has not seen them except for inpatient. Differential Diagnoses - Chronic ulcerations of chest, abdomen, and back is more likely for the following reason(s): suggested by HANDP - Cellulitis is less likely for the following reason(s): HANDP not suggestive and laboratory studies not suggestive - Acute bleeding from ulceration is less likely for the following reason(s): HANDP not suggestive Disposition The patient was discharged. Counseled patient regarding lab results and suspected diagnosis. Follow Up Orders Status Ordering Provider FOLLOW UP APPOINTMENT REQUEST (ED/IP) Question Answer Comment Follow up appointment: Dermatology Schedule follow up appointment within 1 week Follow Up Reason: multiple chronic ulcerations Acknowledged JOSE CARLOS GONCALVES SIGNATURE: Jose Carlos Goncalves DPM Attending Note Attestation for: Resident I evaluated the patient and personally participated in the mendoza components. I agree with the resident's findings and plan as documented and have discussed the case and management of the patient's care with the resident. 44-year-old male history of end-stage renal disease presents to the ED for evaluation of bleeding ulcerations on his back. As noted above he has had a chronic superficial ulcerations on his back and chest for the last 4 years. Prior documentation regarding his ulcerations was reviewed as noted above. He does have frequent ED visits for these ulcerations and has been evaluated by dermatology and plastic surgery on an inpatient basis. The patient states that he has never been able to follow-up with dermatology as an outpatient, however. On exam he has several superficial ulcerations as described above with no secondary signs of infection or significant bleeding. These were irrigated with saline and dressed with Xeroform and a dry dressing. Patient was pretreated with 10 mg of oxycodone prior to dressing changes. The patient requested admission for further treatment however given that there is no evidence of infection or active bleeding we explained that admission is not indicated at this time. Patient is also scheduled for dialysis tomorrow and laboratory work this evening is reassuring. Labs were reviewed and he has no leukocytosis or elevated potassium. INR is also not supratherapeutic at this time. We will place an order for outpatient dermatology follow-up as this will likely be very beneficial for the patient to establish regular care for his ulcerations. Of course if he has worsening symptoms or bleeding is instructed to return to the emergency room. External record(s) reviewed: prior inpatient record and prior outpatient record. Findings from review of inpatient records: Recent inpatient evaluations reviewed as noted above Findings from review of outpatient records: Recent ED eval for bleeding observation was reviewed as noted above Signature: Silviano Bell MD Date: 12/30/2024 Time: 2:20 PM JOSE CARLOS GONCALVES 12/29/24 0026 JOSE CARLOS GONCALVES 12/29/24 0034 SILVIANO BELL 12/30/24 1423 CBC WITH PLATELET AND DIFFERENTIAL Collected: 12/26/2024 1:34 AM Status: F Source: [facility] TYPE CODE TESTS RESULT OUT OF RANGE REFERENCE UNITS LAB WBCIR WBC 8.0 4.8-10.8 K/uL LAB RBC RBC 3.55 Low 4.70-6.10 M/uL LAB HGB Hemoglobin 10.1 Low 14.0-18.0 g/dL LAB HCT Hematocrit 33.1 Low 42.0-52.0 % LAB MCV MCV 93.2 High alert 79.0-92.2 fL LAB MCH MCH 28.5 27.0-31.3 pg LAB MCHC MCHC 30.5 Low 33.0-37.0 % LAB RDW RDW 18.2 High alert 11.5-14.5 % LAB PLT Platelet Count 258 130-400 K/uL LAB SEGR Neutrophils 66.7 % LAB LYMPR Lymphocytes 14.6 % LAB MONOR Monocytes 13.8 % LAB EOSR Eosinophils 3.8 % LAB BASOR Basophils 0.6 % LAB ASEGR Absolute Neutrophils 5.3 1.4-6.5 K/uL LAB ALYMR Absolute Lymphocytes 1.2 1.0-4.8 K/uL LAB AMONR Absolute Monocytes 1.1 High alert 0.2-0.8 K/uL LAB AEOSR Absolute Eosinophils 0.3 0.0-0.7 K/uL LAB ABASR Absolute Basophils 0.1 0.0-0.2 K/uL Performed By: #### CBCWD ### # [facility] [address] [place] [address] PROTHROMBIN TIME Collected: 12/26/2024 1:34 AM Statu s: F Source: [facility] TYPE CODE TESTS RESULT OUT OF RANGE REFERENCE UNITS LAB PTI Prothrombin Time 34.8 High alert 12.3-14.9 sec LAB INR INR 3.2 Performed By: #### PT #### [facility] [address] [place] [address] PARTIAL THROMBOPLASTIN TIME Collected: 12/26/2024 1:3 4 AM Status: F Source: [facility] TYPE CODE TESTS RESULT OUT OF RANGE REFERENCE UNITS LAB PTT Partial Thromboplastin Time 60.1 High alert 24.4-36.8 sec Result Comment: Effective : Heparin Therapeutic Range: 64.0 ? 98.0 seconds. Performed By: #### PTT #### [facility] [address] [place] [address] BASIC METABOLIC PANEL Collected: 2024 1:33 AM Status: F Source: [facility] Order Comment: CALL [facility] tel. [phone], CREAT results called to and read back by Adeel MURILLO, 12/26/2024 02:14, by [facility] TYPE CODE TESTS RESULT OUT OF RANGE REFERENCE UNITS LAB NA Sodium 135 135-144 mEq/L LAB K Potassium 4.6 3.4-4.9 mEq/L LAB CL Chloride 93 Low 95-107 mEq/L LAB CO2 CO2 21 20-31 mEq/L LAB AGAP Anion Gap 21 High alert 9-15 mEq/L LAB GLU Glucose 93 70-99 mg/dL LAB BUN BUN 41 High alert 6-20 mg/dL LAB CREA Creatinine 8.67 High alert 0.70-1.20 mg/dL LAB GFR GFR 7.2 Low >60 Result Comment: Pediatric ca lculator link https://www.kidney.org/professionals/kdoqi/gfr_calculatorped Effective Jul 01, 2022 These results are not intended for use in patients <18 years of age. eGFR results are calculated without a race factor using the 2020 CKD-EPI equation. Careful clinical correlation is recommended, particularly when comparing to results calculated using previous equations. The CKD-EPI equation is less accurate in patients with extremes of muscle mass, extra-renal metabolism of creatinine, excessive creatinine ingestion, or following therapy that affects renal tubular secretion. LAB CA Calcium 8.8 8.5-9.9 mg/dL Performed By: #### BMP #### [facility] [address] [facility] [address] PT PNL PPP Collected: 11/26/2024 6:41 AM Status: F Source: [facility] Order Comment: Specimen Type : BLOOD SPECIMEN Ordering Facility: [facility] (100, 200) Address: [address] [place] [address], [place] [address] TYPE CODE TESTS RESULT OUT OF RANGE REFERENCE UNITS LAB 5902-2(LOINC) Prothrombin time 43.9 High 9.7-13.0 sec LAB 6301-6(LOINC) INR PPP 4.3 High 0.9-1.3 Result Comment: Vitamin K An tagonist (VKA) Therapeutic Range: INR 2 to 3 (Target INR of 2.5) Note: For patients treated with VKA drugs, such as warfarin, the [place] [employer] Physicians 2012 Guideline recommends a therapeutic INR range of 2 to 3 (target INR of 2.5). This recommendation includes high-risk patients with antiphospholipid syndrome with previous arterial or venous thromboembolism, current-generation mechanical or bioprosthetic aortic heart valve replacement. Note: Patients with mechanical aortic valve replacement and additional risk factors for thromboembolic events (atrial fibrillation, previous thromboembolism, LV dysfunction, hypercoagulable conditions) or an older generation mechanical AVR (i.e., ball in-Cage) or any mechanical MVR should have a INR therapeutic range of 2.5 to 3.5 (target INR of 3). Ranjit YOUSSEF et smiley. Chest 2012, 141:7S-47S Kevin RUSHING et al. [facility] 2017, 70: 252-289 Performed By: #### 36483-5 # ### [facility] CLIA [id number] [place] PT PNL PPP Collected: 11/22/2024 7:18 AM Status: F Source: [facility] Order Comment: Specimen Type : BLOOD SPECIMEN Ordering Facility: [facility] (100, 200) Address: [address] [place] [address] TYPE CODE TESTS RESULT OUT OF RANGE REFERENCE UNITS LAB 5902-2(LOINC) Prothrombin time 33.1 High 9.7-13.0 sec LAB 6301-6(LOINC) INR PPP 3.2 High 0.9-1.3 Result Comment: Vitamin K An tagonist (VKA) Therapeutic Range: INR 2 to 3 (Target INR of 2.5) Note: For patients treated with VKA drugs, such as warfarin, the [place] [employer] 2012 Guideline recommends a therapeutic INR range of 2 to 3 (target INR of 2.5). This recommendation includes high-risk patients with antiphospholipid syndrome with previous arterial or venous thromboembolism, current-generation mechanical or bioprosthetic aortic heart valve replacement. Note: Patients with mechanical aortic valve replacement and additional risk factors for thromboembolic events (atrial fibrillation, previous thromboembolism, LV dysfunction, hypercoagulable conditions) or an older generation mechanical AVR (i.e., ball in-Cage) or any mechanical MVR should have a INR therapeutic range of 2.5 to 3.5 (target INR of 3). Ranjit YOUSSEF et smiley. Chest 2012, 141:7S-47S Kevin RUSHING et al. JAC 2017, 70: 252-289 Performed By: #### 23489-7 # ### [facility] CLIA [id number] [place] [id number] [place] COMP METAB 2000 PNL SERPL Collected: 7:18 AM Status: F Source: [facility] Order Comment: Specimen Type : BLOOD SPECIMEN Ordering Facility: [facility] (100, 200) Address: [address] [place] [address] [place] [address] TYPE CODE TESTS RESULT OUT OF RANGE REFERENCE UNITS LAB 2885-2(LOINC) Prot SerPl-mCnc 9.4 High 6.3-8.0 g/dL LAB 1751-7(LOINC) Albumin SerPl-mCnc 3.7 Low 3.9-4.9 g/dL LAB 20381-4(LOINC) Calcium SerPl-mCnc 9.0 8.5-10.2 mg/dL LAB 1975-2(LOINC) Bilirub SerPl-mCnc 0.4 0.2-1.3 mg/dL LAB 6768-6(LOINC) ALP SerPl-cCnc 157 High 38-113 U/L LAB 1920-8(LOINC) AST SerPl-cCnc 29 14-40 U/L LAB 1742-6(LOINC) ALT SerPl-cCnc 23 10-54 U/L LAB 2345-7(LOINC) Glucose SerPl-mCnc 49 Low 74-99 mg/dL Result Comment: The [place] Diabetes Association (ADA) provides guidance for cutoff values for fasting glucose and random glucose. The ADA defines fasting as no caloric intake for at least 8 hours. Fasting plasma glucose results between 100 to 125 mg/dL indicate increased risk for diabetes (prediabetes). Fasting plasma glucose results greater than or equal to 126 mg/dL meet the criteria for diagnosis of diabetes. In the absence of unequivocal hyperglycemia, results should be confirmed by repeat testing. In a patient with classic symptoms of hyperglycemia or hyperglycemic crisis, random plasma glucose results greater than or equal to 200 mg/dL meet the criteria for diagnosis of diabetes. Reference: Standards of Medical Care in Diabetes 2016, [place] Diabetes Association. Diabetes Care. 2016.39(Suppl 1). LAB 3094-0(LOINC) BUN SerPl-mCnc 71 High 9-24 mg/ dL LAB 2160-0(LOINC) Creat SerPl-mCnc 12.45 High 0.73-1.22 mg/dL LAB 2951-2(LOINC) Sodium SerPl-sCnc 133 Low 136-144 mmol/L LAB 2823-3(LOINC) Potassium SerPl-sCnc 6.2 High Alert 3.7-5.1 mmol/L LAB 2075-0(LOINC) Chloride SerPl-sCnc 88 Low 98-107 mmol/L LAB 2027-9(LOINC) CO2 SerPl-sCnc 20 Low 22-30 mmo l/L LAB 73696-6(LOINC) Anion Gap SerPl-sCnc 25 High 8-15 mmol/L LAB 81977-8(LOINC) Creatinine + eGFR Pnl SerPlBld 5 Low >=60 mL/min/1 .73m??? Result Comment: Estimated Gl omerular Filtration Rate (eGFR) is calculated using the 2020 CKD-EPI creatinine equation. This equation utilizes serum creatinine, sex, and age as parameters. The creatinine assay has traceable calibration to isotope dilution-mass spectrometry. Refer to KDIGO guidelines for clinical interpretation. In patients with unstable renal function, e.g. those with acute kidney injury, the eGFR may not accurately reflect actual GFR. Performed By: #### 89588-8, 43938-9 #### [id number] [address] [place] [address] [place] CBC W AUTO DIFF BLD Collected: 11/22/2024 7:[address] atus: F Source: [facility] Order Comment: Specimen Type : BLOOD SPECIMEN Ordering Facility: [facility] (078, 200) Address: [address] [place] [address] TYPE CODE TESTS RESULT OUT OF RANGE REFERENCE UNITS LAB 6690-2(LOINC) WBC # Bld Auto 12.84 High 3.70-11.00 k/uL LAB 789-8(LOINC) RBC # Bld Auto 3.93 Low 4.20-6.00 m/ uL LAB 718-7(LOINC) Hgb Bld-mCnc 11.1 Low 13.0-17.0 g/dL LAB 4544-3(LOINC) Hct VFr Bld Auto 37.4 Low 39.0-51.0 % LAB 787-2(LOINC) MCV RBC Auto 95.2 80.0-100.0 fL LAB 785-6([facility]) MCH RBC Qn Auto 28.2 26.0-34.0 p g LAB 786-4([facility]) MCHC RBC Auto-mCnc 29.7 Low 30.5-36.0 g/dL LAB 86898-8([facility]) RDW RBC-Rto 18.4 High 11.5-15.0 % LAB 777-3([facility]) Platelet # Bld Auto 131 Low 150-400 k/uL Result Comment: No clot dete cted. LAB 02145-6([facility]) PMV Bld Auto 13.3 High 9.0-12.7 fL LAB 770-8([facility]) Neutrophils/leuk NFr Bld Auto 76.3 % LAB 751-8([facility]) Neutrophils # Bld Auto 9.79 High 1.45-7.50 k/uL LAB 736-9([facility]) Lymphocytes/leuk NFr Bld Auto 9.0 % LAB 731-0([facility]) Lymphocytes # Bld Auto 1.16 1.00-4.00 k/uL LAB 5905-5([facility]) Monocytes/leuk NFr Bld Auto 11.5 % LAB 742-7([facility]) Monocytes # Bld Auto 1.48 High <0.87 k/uL LAB 713-8([facility]) Eosinophil/leuk NFr Bld Auto 1.9 % LAB 711-2([facility]) Eosinophil # Bld Auto 0.24 <0.46 k/uL LAB 706-2([facility]) Basophils/leuk NFr Bld Auto 0.3 % LAB 704-7([facility]) Basophils # Bld Auto 0.04 <0.11 k/uL LAB 25883-3([facility]) Imm Granulocytes/fely k NFr Bld Auto 1.0 % LAB 97237-9([facility]) Imm Granulocytes # Bld Auto 0.13 High <0.10 k/uL LAB 63447-9([facility]) nRBC/100 WBC Bld-Rto 0.0 /100 WBC LAB 771-6([facility]) nRBC # Bld Auto <0.01 <0.01 k/u L LAB 90357-9([facility]) Platelet # Bld Est Decreased LAB 5908-9(LOINC) Giant Platelets Bld Ql Smear Present LAB 79241-9([facility]) Differential method Bld Auto Performed By: #### 96732-6, 16620-5 #### [facility] CLIA [id number] [address] FLUABV+SARS-COV-2+RSV PNL RE SP CARLOS+PROBE Observed: 11/21/2024 11:34 AM Status: F Source: [facility] SARS-COV-2 (AGENT OF COVID-1 9) RNA: Not detectedINFLUENZA A RNA: Not detectedINFLUENZA B RNA: Not detectedRESPIRATORY SYNCYTIAL VIRUS (RSV) RNA: Not detected Performed By: #### 40602-2 # ### [facility] CLIA [id number] [address] PT PNL PPP Collected: 11/19/2024 8:51 AM Status: F Source: [facility] Order Comment: Specimen Type : BLOOD SPECIMEN Ordering Facility: [facility] (100, 200) Address: [address] [place] [address] TYPE CODE TESTS RESULT OUT OF RANGE REFERENCE UNITS LAB 5902-2(LOINC) Prothrombin time 33.9 High 9.7-13.0 sec LAB 6301-6(LOINC) INR PPP 3.2 High 0.9-1.3 Result Comment: Vitamin K An tagonist (VKA) Therapeutic Range: INR 2 to 3 (Target INR of 2.5) Note: For patients treated with VKA drugs, such as warfarin, the [place] [employer] Physicians 2012 Guideline recommends a therapeutic INR range of 2 to 3 (target INR of 2.5). This recommendation includes high-risk patients with antiphospholipid syndrome with previous arterial or venous thromboembolism, current-generation mechanical or bioprosthetic aortic heart valve replacement. Note: Patients with mechanical aortic valve replacement and additional risk factors for thromboembolic events (atrial fibrillation, previous thromboembolism, LV dysfunction, hypercoagulable conditions) or an older generation mechanical AVR (i.e., ball in-Cage) or any mechanical MVR should have a INR therapeutic range of 2.5 to 3.5 (target INR of 3). Ranjit YOUSSEF et al. Chest 2012, 141:7S-47S Kevin RUSHING et al. JAC 2017, 70: 252-289 Performed By: #### 40566-4 # ### [facility] CLIA [id number] [address] [place] [address] [place] PT PNL PPP Collected: 11/17/2024 5:56 AM Status: F Source: [facility] Order Comment: Specimen Type : BLOOD SPECIMEN Ordering Facility: [facility] (100, 200) Address: [address] [place] [address] TYPE CODE TESTS RESULT OUT OF RANGE REFERENCE UNITS LAB 5902-2(LOINC) Prothrombin time 27.6 High 9.7-13.0 sec LAB 6301-6(LOINC) INR PPP 2.6 High 0.9-1.3 Result Comment: Vitamin K An tagonist (VKA) Therapeutic Range: INR 2 to 3 (Target INR of 2.5) Note: For patients treated with VKA drugs, such as warfarin, the [place] [employer] Chest Physicians 2012 Guideline recommends a therapeutic INR range of 2 to 3 (target INR of 2.5). This recommendation includes high-risk patients with antiphospholipid syndrome with previous arterial or venous thromboembolism, current-generation mechanical or bioprosthetic aortic heart valve replacement. Note: Patients with mechanical aortic valve replacement and additional risk factors for thromboembolic events (atrial fibrillation, previous thromboembolism, LV dysfunction, hypercoagulable conditions) or an older generation mechanical AVR (i.e., ball in-Cage) or any mechanical MVR should have a INR therapeutic range of 2.5 to 3.5 (target INR of 3). Ranjit YOUSSEF, et al. Chest 2012, 141:7S-47S Kevin RUSHING et al. JAC 2017, 70: 252-289 Performed By: #### 36422-7 # ### [facility] CLIA [id number] [address] [place] [address] [place] CBC W AUTO DIFF BLD Collected: 11/15/2024 7:[address] atus: F Source: [facility] Order Comment: Specimen Type : BLOOD SPECIMEN Ordering Facility: [facility] (100, 200) Address: [address] [place] [address], [place] [address] TYPE CODE TESTS RESULT OUT OF RANGE REFERENCE UNITS LAB 6690-2(LOINC) WBC # Bld Auto 6.84 3.70-11.00 k/uL LAB 789-8(LOINC) RBC # Bld Auto 3.21 Low 4.20-6.00 m/ uL LAB 718-7(LOINC) Hgb Bld-mCnc 9.4 Low 13.0-17.0 g/dL LAB 4544-3(LOINC) Hct VFr Bld Auto 31.4 Low 39.0-51.0 % LAB 787-2(LOINC) MCV RBC Auto 97.8 80.0-100.0 fL LAB 785-6(LOINC) MCH RBC Qn Auto 29.3 26.0-34.0 p g LAB 786-4(LOINC) MCHC RBC Auto-mCnc 29.9 Low 30.5-36.0 g/dL LAB 21177-8(INC) RDW RBC-Rto 18.6 High 11.5-15.0 % LAB 777-3(LOINC) Platelet # Bld Auto 209 150-400 k/uL LAB 02759-8(LOINC) PMV Bld Auto 11.7 9.0-12.7 fL LAB 770-8(LOINC) Neutrophils/leuk NFr Bld Auto 65.2 % LAB 751-8(LOINC) Neutrophils # Bld Auto 4.46 1.45-7.50 k/uL LAB 736-9(LOINC) Lymphocytes/leuk NFr Bld Auto 15.5 % LAB 731-0(LOINC) Lymphocytes # Bld Auto 1.06 1.00-4.00 k/uL LAB 5905-5(LOINC) Monocytes/leuk NFr Bld Auto 12.7 % LAB 742-7(LOINC) Monocytes # Bld Auto 0.87 High <0.87 k/uL LAB 713-8(LOINC) Eosinophil/leuk NFr Bld Auto 4.8 % LAB 711-2(LOINC) Eosinophil # Bld Auto 0.33 <0.46 k/uL LAB 706-2(LOINC) Basophils/leuk NFr Bld Auto 1.2 % LAB 704-7(INC) Basophils # Bld Auto 0.08 <0.11 k/uL LAB 32705-0([facility]) Imm Granulocytes/fely k NFr Bld Auto 0.6 % LAB 41365-1([facility]) Imm Granulocytes # Bld Auto 0.04 <0.10 k/uL LAB 91094-5([facility]) nRBC/100 WBC Bld-Rto 0.0 /100 WBC LAB 771-6([facility]) nRBC # Bld Auto <0.01 <0.01 k/u L LAB 78302-0([facility]) Differential method Bld Auto Performed By: #### 54761-8, 40682-0 #### [facility] CLIA [id number] [address] [place] COMP METAB 2000 PNL SERPL Collected: 7:30 AM Status: F Source: [facility] Order Comment: Specimen Type : BLOOD SPECIMEN Ordering Facility: [facility] (100, 200) Address: [address] [place] [address] TYPE CODE TESTS RESULT OUT OF RANGE REFERENCE UNITS LAB 2885-2([facility]) Prot SerPl-mCnc 8.4 High 6.3-8.0 g/dL LAB 1751-7(LOINC) Albumin SerPl-mCnc 3.7 Low 3.9-4.9 g/dL LAB 39706-3(LOINC) Calcium SerPl-mCnc 9.0 8.5-10.2 mg/dL LAB 1975-2(LOINC) Bilirub SerPl-mCnc 0.3 0.2-1.3 mg/dL LAB 6768-6(INC) ALP SerPl-cCnc 162 High 38-113 U/L LAB 1920-8(LOINC) AST SerPl-cCnc 30 14-40 U/L LAB 1742-6(LOINC) ALT SerPl-cCnc 24 10-54 U/L LAB 2345-7(LOINC) Glucose SerPl-mCnc 66 Low 74-99 mg/dL Result Comment: The [place] Diabetes Association (ADA) provides guidance for cutoff values for fasting glucose and random glucose. The ADA defines fasting as no caloric intake for at least 8 hours. Fasting plasma glucose results between 100 to 125 mg/dL indicate increased risk for diabetes (prediabetes). Fasting plasma glucose results greater than or equal to 126 mg/dL meet the criteria for diagnosis of diabetes. In the absence of unequivocal hyperglycemia, results should be confirmed by repeat testing. In a patient with classic symptoms of hyperglycemia or hyperglycemic crisis, random plasma glucose results greater than or equal to 200 mg/dL meet the criteria for diagnosis of diabetes. Reference: Standards of Medical Care in Diabetes 2016, [place] Diabetes Association. Diabetes Care. 2016.39(Suppl 1). LAB 3094-0(LOINC) BUN SerPl-mCnc 50 High 9-24 mg/ dL LAB 2160-0(LOINC) Creat SerPl-mCnc 9.21 High 0.73-1.22 mg/dL LAB 2951-2(LOINC) Sodium SerPl-sCnc 137 136-144 mmol/L LAB 2823-3(LOINC) Potassium SerPl-sCnc 6.6 High Alert 3.7-5.1 mmol/L LAB 2075-0(LOINC) Chloride SerPl-sCnc 95 Low 98-107 mmol/L LAB 2028-9(LOINC) CO2 SerPl-sCnc 23 22-30 mmo l/L LAB 34415-5(LOINC) Anion Gap SerPl-sCnc 19 High 8-15 mmol/L LAB 42582-0(LOINC) Creatinine + eGFR Pnl SerPlBld 7 Low >=60 mL/min/1 .73m??? Result Comment: Estimated Gl omerular Filtration Rate (eGFR) is calculated using the 2020 CKD-EPI creatinine equation. This equation utilizes serum creatinine, sex, and age as parameters. The creatinine assay has traceable calibration to isotope dilution-mass spectrometry. Refer to KDIGO guidelines for clinical interpretation. In patients with unstable renal function, e.g. those with acute kidney injury, the eGFR may not accurately reflect actual GFR. Performed By: #### 74846-6, 74456-8 #### [facility] CLIA [id number] [place] [address] [place] PT PNL PPP Collected: 11/15/2024 7:30 AM Status: F Source: [facility] Order Comment: Specimen Type : BLOOD SPECIMEN Ordering Facility: [facility] (100, 200) Address: [address] [place] [address] TYPE CODE TESTS RESULT OUT OF RANGE REFERENCE UNITS LAB 5902-2(LOINC) Prothrombin time 18.8 High 9.7-13.0 sec LAB 6301-6(LOINC) INR PPP 1.7 High 0.9-1.3 Result Comment: Vitamin K An tagonist (VKA) Therapeutic Range: INR 2 to 3 (Target INR of 2.5) Note: For patients treated with VKA drugs, such as warfarin, the [place] [employer] 2012 Guideline recommends a therapeutic INR range of 2 to 3 (target INR of 2.5). This recommendation includes high-risk patients with antiphospholipid syndrome with previous arterial or venous thromboembolism, current-generation mechanical or bioprosthetic aortic heart valve replacement. Note: Patients with mechanical aortic valve replacement and additional risk factors for thromboembolic events (atrial fibrillation, previous thromboembolism, LV dysfunction, hypercoagulable conditions) or an older generation mechanical AVR (i.e., ball in-Cage) or any mechanical MVR should have a INR therapeutic range of 2.5 to 3.5 (target INR of 3). Alanatt GH, et al. Chest 2012, 141:7S-47S Kevin RA, et al. [facility] 2017, 70: 252-289 Performed By: #### 26241-5 # ### [facility] IA [id number] [address] [place] [address] [place] PT PNL PPP Collected: 11/12/2024 6:20 PM Status: F Source: [facility] Order Comment: Specimen Type : BLOOD SPECIMEN Ordering Facility: [facility] (100, 200) Address: [address] [place] [address] TYPE CODE TESTS RESULT OUT OF RANGE REFERENCE UNITS LAB 5902-2(LOINC) Prothrombin time 16.9 High 9.7-13.0 sec LAB 6301-6(LOINC) INR PPP 1.5 High 0.9-1.3 Result Comment: Vitamin K An tagonist (VKA) Therapeutic Range: INR 2 to 3 (Target INR of 2.5) Note: For patients treated with VKA drugs, such as warfarin, the [place] [employer]icians 2012 Guideline recommends a therapeutic INR range of 2 to 3 (target INR of 2.5). This recommendation includes high-risk patients with antiphospholipid syndrome with previous arterial or venous thromboembolism, current-generation mechanical or bioprosthetic aortic heart valve replacement. Note: Patients with mechanical aortic valve replacement and additional risk factors for thromboembolic events (atrial fibrillation, previous thromboembolism, LV dysfunction, hypercoagulable conditions) or an older generation mechanical AVR (i.e., ball in-Cage) or any mechanical MVR should have a INR therapeutic range of 2.5 to 3.5 (target INR of 3). Ranjit GH, et al. Chest 2012, 141:7S-47S Kevin RA, et al. [facility] 2017, 70: 252-289 Performed By: #### 21108-6 # ### [facility] CLIA [id number] [address] [place] [address] [place] PT PNL PPP Collected: 11/12/2024 5:57 AM Status: F Source: [facility] Order Comment: Specimen Type : BLOOD SPECIMEN Ordering Facility: [facility] (975, 265) Address: [address] [place] [address] TYPE CODE TESTS RESULT OUT OF RANGE REFERENCE UNITS LAB 5902-2(LOINC) Prothrombin time 16.2 High 9.7-13.0 sec LAB 6301-6(LOINC) INR PPP 1.5 High 0.9-1.3 Result Comment: Vitamin K An tagonist (VKA) Therapeutic Range: INR 2 to 3 (Target INR of 2.5) Note: For patients treated with VKA drugs, such as warfarin, the [place] [employer] 2012 Guideline recommends a therapeutic INR range of 2 to 3 (target INR of 2.5). This recommendation includes high-risk patients with antiphospholipid syndrome with previous arterial or venous thromboembolism, current-generation mechanical or bioprosthetic aortic heart valve replacement. Note: Patients with mechanical aortic valve replacement and additional risk factors for thromboembolic events (atrial fibrillation, previous thromboembolism, LV dysfunction, hypercoagulable conditions) or an older generation mechanical AVR (i.e., ball in-Cage) or any mechanical MVR should have a INR therapeutic range of 2.5 to 3.5 (target INR of 3). Ranjit YOUSSEF, et smiley. Chest 2012, 141:7S-47S Kevin RUSHING et al. [facility] 2017, 70: 252-289 Performed By: #### 38127-7 # ### [facility] CLIA [id number] [address] [place] [address] [place] PT PNL PPP Collected: 11/10/2024 5:52 AM Status: F Source: [facility] Order Comment: Specimen Type : BLOOD SPECIMEN [facility] Address: [address] [place] [address] TYPE CODE TESTS RESULT OUT OF RANGE REFERENCE UNITS LAB 5902-2(LOINC) Prothrombin time 14.6 High 9.7-13.0 sec LAB 6301-6(LOINC) INR PPP 1.3 0.9-1.3 Result Comment: Vitamin K An tagonist (VKA) Therapeutic Range: INR 2 to 3 (Target INR of 2.5) Note: For patients treated with VKA drugs, such as warfarin, the [place] [employer] 2012 Guideline recommends a therapeutic INR range of 2 to 3 (target INR of 2.5). This recommendation includes high-risk patients with antiphospholipid syndrome with previous arterial or venous thromboembolism, current-generation mechanical or bioprosthetic aortic heart valve replacement. Note: Patients with mechanical aortic valve replacement and additional risk factors for thromboembolic events (atrial fibrillation, previous thromboembolism, LV dysfunction, hypercoagulable conditions) or an older generation mechanical AVR (i.e., ball in-Cage) or any mechanical MVR should have a INR therapeutic range of 2.5 to 3.5 (target INR of 3). Ranjit YOUSSEF et al. Chest 2012, 141:7S-47S Kevin RUSHING et al. [facility] 2017, 70: 252-289 Performed By: #### 53924-0 # ### [facility] CLIA [id number] [place], [place] [id number] [facility] PT PNL PPP Collected: 11/08/2024 7:57 AM Status: F Source: [facility] Order Comment: Specimen Type : BLOOD SPECIMEN Ordering Facility: [facility] (100, 200) Address: [address] [place] [address], [place] [address] TYPE CODE TESTS RESULT OUT OF RANGE REFERENCE UNITS LAB 5902-2(LOINC) Prothrombin time 15.3 High 9.7-13.0 sec LAB 6301-6(LOINC) INR PPP 1.4 High 0.9-1.3 Result Comment: Vitamin K An tagonist (VKA) Therapeutic Range: INR 2 to 3 (Target INR of 2.5) Note: For patients treated with VKA drugs, such as warfarin, the [place] [employer] 2012 Guideline recommends a therapeutic INR range of 2 to 3 (target INR of 2.5). This recommendation includes high-risk patients with antiphospholipid syndrome with previous arterial or venous thromboembolism, current-generation mechanical or bioprosthetic aortic heart valve replacement. Note: Patients with mechanical aortic valve replacement and additional risk factors for thromboembolic events (atrial fibrillation, previous thromboembolism, LV dysfunction, hypercoagulable conditions) or an older generation mechanical AVR (i.e., ball in-Cage) or any mechanical MVR should have a INR therapeutic range of 2.5 to 3.5 (target INR of 3). Guyatt GH, et al. Chest 2012, 141:7S-47S Kevin RA, et al. [facility] 2017, 70: 252-289 Performed By: #### 52646-3 # ### [facility] [id number] [address] [place] [address] [place] CBC W AUTO DIFF BLD Collected: 11/08/2024 7:[address] atus: F Source: [facility] Order Comment: Specimen Type : BLOOD SPECIMEN Ordering Facility: [facility] (100, 200) Address: [id number] [place] [address], [place] [address] TYPE CODE TESTS RESULT OUT OF RANGE REFERENCE UNITS LAB 6690-2(LOINC) WBC # Bld Auto 6.19 3.70-11.00 k/uL LAB 789-8(LOINC) RBC # Bld Auto 3.09 Low 4.20-6.00 m/ uL LAB 718-7(LOINC) Hgb Bld-mCnc 9.0 Low 13.0-17.0 g/dL LAB 4544-3([facility]) Hct VFr Bld Auto 29.8 Low 39.0-51.0 % LAB 787-2([facility]) MCV RBC Auto 96.4 80.0-100.0 fL LAB 785-6([facility]) MCH RBC Qn Auto 29.1 26.0-34.0 p g LAB 786-4([facility]) MCHC RBC Auto-mCnc 30.2 Low 30.5-36.0 g/dL LAB 87874-7([facility]) RDW RBC-Rto 18.7 High 11.5-15.0 % LAB 777-3([facility]) Platelet # Bld Auto 189 150-400 k/uL LAB 54984-3([facility]) PMV Bld Auto 11.5 9.0-12.7 fL LAB 770-8([facility]) Neutrophils/leuk NFr Bld Auto 56.0 % LAB 751-8([facility]) Neutrophils # Bld Auto 3.47 1.45-7.50 k/uL LAB 736-9([facility]) Lymphocytes/leuk NFr Bld Auto 18.1 % LAB 731-0([facility]) Lymphocytes # Bld Auto 1.12 1.00-4.00 k/uL LAB 5905-5([facility]) Monocytes/leuk NFr Bld Auto 18.4 % LAB 742-7([facility]) Monocytes # Bld Auto 1.14 High <0.87 k/uL LAB 713-8([facility]) Eosinophil/leuk NFr Bld Auto 6.0 % LAB 711-2([facility]) Eosinophil # Bld Auto 0.37 <0.46 k/uL LAB 706-2([facility]) Basophils/leuk NFr Bld Auto 1.0 % LAB 704-7([facility]) Basophils # Bld Auto 0.06 <0.11 k/uL LAB 47508-6([facility]) Imm Granulocytes/fely k NFr Bld Auto 0.5 % LAB 88282-1([facility]) Imm Granulocytes # Bld Auto 0.03 <0.10 k/uL LAB 95461-9([facility]) nRBC/100 WBC Bld-Rto 0.0 /100 WBC LAB 771-6([facility]) nRBC # Bld Auto <0.01 <0.01 k/u L LAB 30231-1([facility]) Differential method Bld Auto Performed By: #### 74274-4, 27499-9 #### [facility] CLIA [id number] [place] [address] [place] COMP METAB 2000 PNL SERPL Collected: 7:57 AM Status: F Source: [facility] Order Comment: Specimen Type : BLOOD SPECIMEN Ordering Facility: [facility] (100, 200) Address: [address] [place] [address], [place] [address] TYPE CODE TESTS RESULT OUT OF RANGE REFERENCE UNITS LAB 2885-2(LOINC) Prot SerPl-mCnc 8.0 6.3-8.0 g/dL LAB 1751-7(LOINC) Albumin SerPl-mCnc 3.8 Low 3.9-4.9 g/dL LAB 80366-0(LOINC) Calcium SerPl-mCnc 8.9 8.5-10.2 mg/dL LAB 1975-2(LOINC) Bilirub SerPl-mCnc 0.3 0.2-1.3 mg/dL LAB 6768-6(LOINC) ALP SerPl-cCnc 149 High 38-113 U/L LAB 1920-8(LOINC) AST SerPl-cCnc 27 14-40 U/L LAB 1742-6(LOINC) ALT SerPl-cCnc 19 10-54 U/L LAB 2345-7(LOINC) Glucose SerPl-mCnc 65 Low 74-99 mg/dL Result Comment: The [place] Diabetes Association (ADA) provides guidance for cutoff values for fasting glucose and random glucose. The ADA defines fasting as no caloric intake for at least 8 hours. Fasting plasma glucose results between 100 to 125 mg/dL indicate increased risk for diabetes (prediabetes). Fasting plasma glucose results greater than or equal to 126 mg/dL meet the criteria for diagnosis of diabetes. In the absence of unequivocal hyperglycemia, results should be confirmed by repeat testing. In a patient with classic symptoms of hyperglycemia or hyperglycemic crisis, random plasma glucose results greater than or equal to 200 mg/dL meet the criteria for diagnosis of diabetes. Reference: Standards of Medical Care in Diabetes 2016, [place] Diabetes Association. Diabetes Care. 2016.39(Suppl 1). LAB 3094-0(LOINC) BUN SerPl-mCnc 38 High 9-24 mg/ dL LAB 2160-0(LOINC) Creat SerPl-mCnc 9.21 High 0.73-1.22 mg/dL LAB 2951-2(LOINC) Sodium SerPl-sCnc 138 136-144 mmol/L LAB 2823-3(LOINC) Potassium SerPl-sCnc 4.8 3.7-5.1 mmol/L LAB 2075-0(LOINC) Chloride SerPl-sCnc 96 Low 98-107 mmol/L LAB 2028-9(LOINC) CO2 SerPl-sCnc 24 22-30 mmo l/L LAB 25826-2(LOINC) Anion Gap SerPl-sCnc 18 High 8-15 mmol/L LAB 95608-5(LOINC) Creatinine + eGFR Pnl SerPlBld 7 Low >=60 mL/min/1 .73m??? Result Comment: Estimated Gl omerular Filtration Rate (eGFR) is calculated using the 2020 CKD-EPI creatinine equation. This equation utilizes serum creatinine, sex, and age as parameters. The creatinine assay has traceable calibration to isotope dilution-mass spectrometry. Refer to KDIGO guidelines for clinical interpretation. In patients with unstable renal function, e.g. those with acute kidney injury, the eGFR may not accurately reflect actual GFR. Performed By: #### 53022-4, 83224-7 #### [facility] CLIA [id number] [address] [place] [address] [place] CBC W AUTO DIFF BLD Collected: 11/05/2024 7:[address] atus: F Source: [facility] Order Comment: Specimen Type : BLOOD SPECIMEN Ordering Facility: [facility] (100, 200) Address: [address] [place] [address], [place] [address] TYPE CODE TESTS RESULT OUT OF RANGE REFERENCE UNITS LAB 6690-2(LOINC) WBC # Bld Auto 6.17 3.70-11.00 k/uL LAB 789-8(LOINC) RBC # Bld Auto 3.34 Low 4.20-6.00 m/ uL LAB 718-7(LOINC) Hgb Bld-mCnc 9.5 Low 13.0-17.0 g/dL LAB 4544-3([facility]) Hct VFr Bld Auto 31.6 Low 39.0-51.0 % LAB 787-2([facility]) MCV RBC Auto 94.6 80.0-100.0 fL LAB 785-6([facility]) MCH RBC Qn Auto 28.4 26.0-34.0 p g LAB 786-4([facility]) MCHC RBC Auto-mCnc 30.1 Low 30.5-36.0 g/dL LAB 75482-1([facility]) RDW RBC-Rto 18.8 High 11.5-15.0 % LAB 777-3([facility]) Platelet # Bld Auto 216 150-400 k/uL LAB 19428-2([facility]) PMV Bld Auto 11.2 9.0-12.7 fL LAB 770-8([facility]) Neutrophils/leuk NFr Bld Auto 59.8 % LAB 751-8([facility]) Neutrophils # Bld Auto 3.69 1.45-7.50 k/uL LAB 736-9([facility]) Lymphocytes/leuk NFr Bld Auto 17.7 % LAB 731-0([facility]) Lymphocytes # Bld Auto 1.09 1.00-4.00 k/uL LAB 5905-5([facility]) Monocytes/leuk NFr Bld Auto 16.2 % LAB 742-7([facility]) Monocytes # Bld Auto 1.00 High <0.87 k/uL LAB 713-8([facility]) Eosinophil/leuk NFr Bld Auto 5.2 % LAB 711-2([facility]) Eosinophil # Bld Auto 0.32 <0.46 k/uL LAB 706-2([facility]) Basophils/leuk NFr Bld Auto 0.8 % LAB 704-7([facility]) Basophils # Bld Auto 0.05 <0.11 k/uL LAB 50175-1([facility]) Imm Granulocytes/fely k NFr Bld Auto 0.3 % LAB 97094-2([facility]) Imm Granulocytes # Bld Auto <0.03 <0.10 k/uL LAB 35744-1([facility]) nRBC/100 WBC Bld-Rto 0.0 /100 WBC LAB 771-6(LOINC) nRBC # Bld Auto <0.01 <0.01 k/u L LAB 58617-0(INC) Differential method Bld Auto Performed By: #### 63900-5, 25067-1, 45721-1 #### [facility] CLIA [id number] [address] [place] [address] [place] PT PNL PPP Collected: 11/05/2024 7:08 AM Status: F Source: [facility] Order Comment: Specimen Type : BLOOD SPECIMEN Ordering Facility: [facility] (100, 200) Address: [address] [place] [address] TYPE CODE TESTS RESULT OUT OF RANGE REFERENCE UNITS LAB 5902-2(INC) Prothrombin time 19.4 High 9.7-13.0 sec LAB 6301-6(LOINC) INR PPP 1.8 High 0.9-1.3 Result Comment: Vitamin K An tagonist (VKA) Therapeutic Range: INR 2 to 3 (Target INR of 2.5) Note: For patients treated with VKA drugs, such as warfarin, the [place] College of Chest Physicians 2012 Guideline recommends a therapeutic INR range of 2 to 3 (target INR of 2.5). This recommendation includes high-risk patients with antiphospholipid syndrome with previous arterial or venous thromboembolism, current-generation mechanical or bioprosthetic aortic heart valve replacement. Note: Patients with mechanical aortic valve replacement and additional risk factors for thromboembolic events (atrial fibrillation, previous thromboembolism, LV dysfunction, hypercoagulable conditions) or an older generation mechanical AVR (i.e., ball in-Cage) or any mechanical MVR should have a INR therapeutic range of 2.5 to 3.5 (target INR of 3). Ranjit GH, et al. Chest 2012, 141:7S-47S Kevin RA, et al. JACC 2017, 70: 252-289 Performed By: #### 86138-5, 11954-3, 22571-5 #### [facility] CLIA [id number] [address] [place] [address] [place] COMP METAB 2000 PNL SERPL Collected: 7:08 AM Status: F Source: [facility] [place] Order Comment: Specimen Type : BLOOD SPECIMEN Ordering Facility: [facility] (100, 200) Address: [address] [place] [address], [place] [address] TYPE CODE TESTS RESULT OUT OF RANGE REFERENCE UNITS LAB 2885-2(LOINC) Prot SerPl-mCnc 8.5 High 6.3-8.0 g/dL LAB 1751-7(LOINC) Albumin SerPl-mCnc 4.1 3.9-4.9 g/dL LAB 03004-4(LOINC) Calcium SerPl-mCnc 8.9 8.5-10.2 mg/dL LAB 1975-2(LOINC) Bilirub SerPl-mCnc 0.3 0.2-1.3 mg/dL LAB 6768-6(LOINC) ALP SerPl-cCnc 157 High 38-113 U/L LAB 1920-8(LOINC) AST SerPl-cCnc 28 14-40 U/L LAB 1742-6(LOINC) ALT SerPl-cCnc 20 10-54 U/L LAB 2345-7(LOINC) Glucose SerPl-mCnc 87 74-99 mg/dL Result Comment: The [place] Diabetes Association (ADA) provides guidance for cutoff values for fasting glucose and random glucose. The ADA defines fasting as no caloric intake for at least 8 hours. Fasting plasma glucose results between 100 to 125 mg/dL indicate increased risk for diabetes (prediabetes). Fasting plasma glucose results greater than or equal to 126 mg/dL meet the criteria for diagnosis of diabetes. In the absence of unequivocal hyperglycemia, results should be confirmed by repeat testing. In a patient with classic symptoms of hyperglycemia or hyperglycemic crisis, random plasma glucose results greater than or equal to 200 mg/dL meet the criteria for diagnosis of diabetes. Reference: Standards of Medical Care in Diabetes 2016, [place] Diabetes Association. Diabetes Care. 2016.39(Suppl 1). LAB 3094-0(LOINC) BUN SerPl-mCnc 23 9-24 mg/ dL LAB 2160-0(LOINC) Creat SerPl-mCnc 7.31 High 0.73-1.22 mg/dL LAB 2951-2(LOINC) Sodium SerPl-sCnc 140 136-144 mmol/L LAB 2823-3(LOINC) Potassium SerPl-sCnc 4.8 3.7-5.1 mmol/L LAB 2075-0(LOINC) Chloride SerPl-sCnc 97 Low 98-107 mmol/L LAB 2027-(LOINC) CO2 SerPl-sCnc 30 22-30 mmo l/L LAB 42642-9(LOINC) Anion Gap SerPl-sCnc 13 8-15 mmol/L LAB 74752-8(LOINC) Creatinine + eGFR Pnl SerPlBld 9 Low >=60 mL/min/1 .73m??? Result Comment: Estimated Gl omerular Filtration Rate (eGFR) is calculated using the 2020 CKD-EPI creatinine equation. This equation utilizes serum creatinine, sex, and age as parameters. The creatinine assay has traceable calibration to isotope dilution-mass spectrometry. Refer to KDIGO guidelines for clinical interpretation. In patients with unstable renal function, e.g. those with acute kidney injury, the eGFR may not accurately reflect actual GFR. Performed By: #### 76919-4, 85012-4, 00145-3 #### [facility] [id number] [address] [place] [address] OF [facility] PROGRESS Observed: 11/03/2024 10:39 AM Status: COMPLETED Source: [facility] ID: [id number] Author: JANIE MAGALLON APRN.FLORAL ASSOCIATE Service: ? Author Type: Nurse Practitioner Type: Progress Notes Filed: 11/03/2024 10:45 Note Text: Connected Care Unit Progress Note Facility: [facility] Level of Care: Skilled SNF Attending: Glen Woods M.D. Service Date: 11/03/2024 Reason For Visit: for a seen for chronic condition management and medical complexity. Past Medical History: Past Medical Hx: PAST MEDICAL HISTORY Diagnosis Date Anemia of chronic disorder Anuria Atrial fibrillation (HCC) 12/02/2018 on Coumadin and Amiodarone BMI 40.0-44.9, adult (HCC) ESRD (end stage renal disease) on dialysis (HCC) 2005 ESRD from HTN Dialysis [facility] [phone] Essential hypertension, benign 1998 EKG 09/30 NL. Hearing loss of both ears History of mitral valve stenosis Hx of bacterial endocarditis Hyperparathyroidism due to end stage renal disease on dialysis (HCC) Kidney disease 2006 ESRD due to HTN; on IHD since 2005 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 and scoliosis h/o this 3 y. Dx by xray. Mechanical complication of arteriovenous fistula surgically created (HCC) Mechanical complication of dialysis catheter (HCC) Mitral valve disease Morbid obesity (HCC) MS (mitral stenosis) 10/08/2018 Transesophageal US YEIMY on CPAP Paroxysmal atrial fibrillation (HCC) PE (pulmonary thromboembolism) ([facility]) Pelvic mass Pseudoaneurysm of AV hemodialysis fistula ([facility]) Wound of right side of back from friction/rubbing of jacket, goes to wound care center in [place] HPI: Subjective Data: copy banner dc summary Elia Weston is a 44 year old male with h/o atrial fibrillation and severe mitral stenosis s/p mitral valve replacement with On-x valve, Maze procedure and RADHA clip on 08/21/2021, currently on Coumadin, ESRD on IHD via left femoral vein TDC on MWF([facility] [place] ), 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 He also expressed a poor pain control on oxycodone. Patient follows withpain management as outpatient for pain associated with chest and abdominal wounds. He currently takes oxycodone 10 mg every 8 hours. He had denied fever or foul-smelling discharge from both wounds. Receiving wound care at home. Patient seen today for follow up currently on phone I have returned to room 3 times for conversation, discussed pain meds oxy 10 mg po q 8 prn per patient q 4 hr prn in hospital. Otherwise conversation was difficult due to phone conversation was his priority. Review of System No fevers. No falls. Family/Social History: Unchanged. Medications: see current medication list in [facility] chart, reviewed (Medications in [facility] may not accurate, please see update in [facility] chart) Objective Data: Vital signs reviewed with nurse Visit made with required PPE per facility policy General: Alert, no distress, comfortable, in bed Skin: warm dry HEENT: no exudate, lymphadenopathy or masses Chest: good resp effort no distress, -cough,-sob Abdomen: no distention or masses +bs soft Neuro: AANDo 3 Psy: appropriate mood and affect Lab/Diagnosis: I have reviewed this patient's medications and treatment plan, as available, as well as most recent labwork available for review. No off label use of medications. Assessment and Plan: ASSESSMENT/PLAN: 1. Anemia in chronic kidney disease (CODE) - ICD9: 285.21, ICD10: D63.1 (primary diagnosis) Aranesp 2. Generalized weakness - ICD9: 780.79, ICD10: R53.1 Therapy 3. H/O mitral valve replacement with mechanical valve - ICD9: V43.3, ICD10: Z95.2 Inr 2.5 -3.0 inr Friday 4. End-stage renal disease on hemodialysis (HCC) - ICD9: 585.6, V45.11, ICD10: N18.6, Z99.2 - eGFR: 11 Stable - Counseled on avoiding NSAIDs, adequate hydration Dialysis t th sat outpt family to transport Nino Simon 5. Chronic wound - ICD9: 879.8, ICD10: T14.8XXA Wound team to follow Oxycodone 10 mg po q 8 hrs renewed in house today Janie Magallon APRN.MIKI We will continue to monitor for overall comfort, function and safety. Call for changes in condition. Electronically signed by Janie Magallon APRN.CNP November 03, 2024 10:39 AM [facility] Observed: 11/02/2024 3:53 PM Status: COMPLETED Source: [facility] ID: [id number] Author: KALANI ARROYO MD Service: General Internal Medicine Author Type: Physician Type: Discharge Summary Filed: 11/02/2024 16:09 Note Text: DISCHARGE SUMMARY PATIENT NAME: Elia Weston Code Status: Full Code Highest Readmission Risk Score: 38 The 30 day readmissions risk score is derived from an internally validated risk model which evaluates patient level characteristics, utilization history, medication orders and lab results up until the day of discharge. Patients with a score of 40 or above are considered highest risk for readmission. Specific patient level drivers will be listed at the bottom of the summary. Admission Information Admission Information ADMIT DATE: 10/12/2024 DISCHARGE DATE: 11/02/2024 DOCTORS AND MEDICAL TEAM: Main Hospital Doctor: Kalani Arroyo MD Primary Care Provider: No primary care provider on file. 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 He also expressed a poor pain control on oxycodone. Patient follows with pain management as outpatient for pain associated with chest and abdominal wounds. He currently takes oxycodone 10 mg every 8 hours. He had denied fever or foul-smelling discharge from both wounds. Receiving wound care at home. Admit Diagnosis summarized nicely by Dr. 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 Course by problem: Chest and abdomen ulcerations -- ischemic ulcers on biopsy - No overt evidence of infection, observing off abx - seen, 11/01/24 There are 2 open chest wall wounds circular about a quarter size in the left chest and at nickel sized on the right side -healing - Evaluated by dermatology and s/p biopsy, continuing wound care in the meantime Derm recs, Alethea Lackey, Dr. Pedroza: Previous skin biopsy revealed ulcer with dermal fibrosis, vascular ectasia, and reactive vascular proliferation - overall nonspecific findings but could be related to chronic ischemia given patient's history and clinical morphology. Punch biopsy showing dermal fibrosis and a reactive vascular proliferation which is most consistent with reactive ischemic changes in the correct clinical context. Features of pyoderma gangrenosum, calciphylaxis not identified. Tissue cultures no growth on bacterial culture and NGTD on fungal/AFB. - Continue wound care for ulcerations: - Xeroform or Vaseline gauze - Followed by ABD pad and tape to secure - Please arrange for outpatient wound care referral at discharge as this patient will require close follow up for wound management - patient prefers outpatient wound care to home health wound care - Pain control with prn oxycodone Hx of SVC syndrome-multiple right and left IJ catheters placed in past resulting in stenosis of central veins. - Vascular surgery input appreciated -- no surgical intervention available. - S/P IR venoplasty, placement of Right chest wall TDC and removal of femoral TDC - TDC should not be removed without consulting IR in this patient. - No evidence of active obstruction now Atrial fibrillation and severe mitral stenosis s/p mechanical mitral valve replacement with On-x valve (INR goal 2.5-3.5), Maze procedure and RADHA clip on 08/21/2021. Goal 2.5- 3.5 I evaluated wounds and gave her a as needed dose of Dilaudid INR3.5 hold Coumadin (Wednesday 11/01) INR Date Value Ref Range Status 11/02/2024 3.0 (H) 0.9 - 1.3 Final and made 2.5 Coumadin tomorrow and all other days of week ESRD on hemodialysis via RIGHT chest TDC on MW Hyperkalemia - Nephrology following and optimizing HD - Alfred + optimize bowel regimen. - Renal diet -Hyperphos tx and tx for ACKD Anemia of ESRD -Hb at baseline(8.0-8.5) GERD -continue pantoprazole Obesity YEIMY on CPAP Secondary hyperparathyroidism -continue calcitriol, Cinacalcet, sevelamer Exogenous Class 2 Obesity OTHER PROBLEMS/DIAGNOSIS: Principal Problem: ESRD (end stage renal disease) on dialysis (HCC) Active Problems: HTN (hypertension) YEIMY (obstructive sleep apnea) Secondary hyperparathyroidism, renal (HCC) 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 Personal history of DVT (deep vein thrombosis) PAF (paroxysmal atrial fibrillation) ([facility]) History of stroke Hypotension, chronic Anemia due to stage 5 chronic kidney disease, not on chronic dialysis (HCC) (HCC) Status post Maze operation for atrial fibrillation Skin ulcer, limited to breakdown of skin (HCC) Generalized weakness Impaired functional mobility, balance, gait, and endurance Ischemic ulcer with fat layer exposed ([facility]) Resolved Problems: SVC syndrome OPERATIONS PERFORMED WHILE IN THE HOSPITAL: None IMPORTANT TEST/PROCEDURES: No procedures performed TEST RESULTS NOT AVAILABLE AT THIS TIME: No pending results Discharge Disposition Discharge Disposition: Long-Term Facility - Less than 30 Days Activity When You Leave the Hospital Resume pre-hospital activity SURGERY/PROCEDURE DATE: 10/22/2024 INCISION/PROCEDURE START TIME: 5:11 PM INCISION CLOSE/PROCEDURE END TIME: 6:52 PM SURGEON(S)/PROCEDURALIST(S) AND FIBER LOCKING SUPERVISOR(S): Surgeons and Role: * Jyoti Issa MD - Primary No Additional Staff SURGERY/PROCEDURE(S): RT CENTRAL VENOGRAM/ VENOPLASTY / LORENA REMOVAL / TDC PLACEMENT, LT GROIN TDC REMOVAL ANESTHESIA: Choice - Anesthesia Consult FINDINGS: Occlusive distal / Supra Azygous SVC stenosis , dilated to 6 and 8 mm, Existing lorena was removed and followed with TDC insertion via same access following venoplasty. RT chest TDC ok for use. LT femoral TDC was removed. Hemostasis achived with manula pressure. Exhausted SD central venous access, pls consult IR for any line related issues. Diet Instructions Renal Resume your pre-hospital diet Additional Provider to Provider Information: Transitions of Care Critical Issues: SPECIALIST FOLLOW-UP: Coumadin clinic, wound care, call IM department Najma to establish with PCP Treatment Team: Attending Provider: Kalani Arroyo MD Primary Service: GI 1 Transitions of Care Critical Issues: INR FRIDAY LABS AND PROCEDURES PENDING AT DISCHARGE: No pending results. FOLLOW-UP APPOINTMENTS ALREADY SCHEDULED WITH A [facility] PROVIDER: No future appointments. Discharge Information Row Name ED to Hosp-Admission (Current) from 10/12/2024 in HOSP MAIN H080 Long-Term Facility Agency [facility] Phone# [phone] Other Follow-Up Type Outpatient Dialysis Name [facility] ([address] [place] [address]) Instructions Tues/Thurs/Sat @ 6am. Arrive by 5:40 am ALLERGIES Allergen Reactions Gabapentin Unknown, Other: See Comments Trazodone Other: See Comments Fidgety DISCHARGE MEDICATION: Medication List START taking these medications calcitriol 0.5 mcg capsule Commonly known as: ROCALTROL Take 3 capsules by mouth every Friday, Friday, and Friday. Start taking on: November 03, 2024 Darbepoetin Osito In Polysorbat 60 mcg/0.3 mL Syrg Commonly known as: ARANESP Inject 0.3 mL subcutaneously every Friday. Start taking on: November 08, 2024 melatonin 3 mg tablet Take 3 tablets by mouth daily at bedtime. Replaces: melatonin 10 mg Cap sevelamer carbonate 800 mg tablet Commonly known as: RENVELA Take 3 tablets by mouth three times a day with meals. sodium zirconium cyclosilicate 10 gram oral packet Commonly known as: LOKELMA Take 1 Packet by mouth once daily. Mix powder in 45 mL of water, stir and drink immediately. Start taking on: November 03, 2024 CHANGE how you take these medications Cinacalcet HCl 60 mg tablet Commonly known as: SENSIPAR Take 1 tablet by mouth once daily. Start taking on: November 03, 2024 What changed: medication strength how much to take Another medication with the same name was removed. Continue taking this medication, and follow the directions you see here. warfarin 2.5 mg tablet Commonly known as: COUMADIN Take 1 tablet by mouth once daily. What changed: medication strength how much to take CONTINUE taking these medications midodrine 10 mg tablet Commonly known as: PROAMATINE Take 2 tablets by mouth every 8 hours. oxyCODONE IR 10 mg Tab Commonly known as: ROXICODONE polyethylene glycol 3350 17 gram packet Commonly known as: MIRALAX Take 1 Packet by mouth once daily. Dissolve dose in 4 - 8 ounces of liquid and take as directed. JOHNSON-BRENDA 0.8 mg Tab Generic drug: B Complex-Vitamin C-Folic Acid STOP taking these medications Blood Pressure Test Kit-Large Commonly known as: Quick Response BP Monitor MEDICATION, NON-DATABASE melatonin 10 mg Cap Replaced by: melatonin 3 mg tablet VELPHORO 500 mg Chew Generic drug: sucroferric oxyhydroxide WALKER ROLLATOR SEAT WITH 6 WHEELS - RED BP 105/71 Pulse 68 Temp 36.8 ?C (98.2 ?F) (Oral) Resp 18 Ht 177 cm (5' 9.69) Wt 118 kg (260 lb 2.3 oz) SpO2 99% BMI 37.66 kg/m? Right sided TDC present Lungs with decreased breath sounds at bases. Normal S1/S2 Chest wall varices + Soft, non tender abdomen 1+ pedal edema 5/5 snow removal supervisor strength Mild pain w/ extending arms R shoulder > L The patient's risk for 30-day readmission is determined using the following contributing factors: Pt variables contributing to increased readmission risk: 25 Active Medication Orders 16 Most Recent BUN Result 9 First Resulted Calcium During Admission 2 Number of Hospitalizations (12 mos.) 1 Previous ED Visit (6 mos.)? 1 Number of Previous ED Visits (6 mos.) 1 Insurance - Medicare 1 History of Anemia 1 History of Chronic Kidney Disease 1 Active Anticoagulant Plan of care discussed with Provider, RN, Patient and Care Management Nephrology Last HD Friday11/01/23 I have performed the [id number] and relevant services for a total of >30 minutes. SIGNATURE: Kalani Arroyo MD DATE: November 02, 2024 TIME: 4:01 PM CASE MANAGEM Observed: 11/02/2024 3:20 PM Status: COMPLETED Source: [facility] ID: [id number] Author: KIN CASAS RN Service: Care Management Author Type: Registered Nurse Type: Care Mgt Progress Note Filed: 11/02/2024 15:23 Note Text: CARE MANAGEMENT DISCHARGE NOTE SERVICE DATE: November 02, 2024 SERVICE TIME: 3:21 PM Admission Date: 10/12/2024 LOS: 21 days Discharge Arrangement Discharge Arrangement: Long-Term Facility Was an expedited discharge program used?: No Services Arranged Medical Services: Other: See Comment (SNF referral) Caregiver Assessment Caregiver is ready, willing and able to meet the patient's needs as recommended by the inter-professional team: Yes Name of Caregiver: Bancro[place]ley Rubio Transportation Arrangements Transportation Arrangements: Ambulance Transportation Agency and Phone #:: [facility] [phone] Date of Trip: 11/02/24 Time of Trip: 1700 Type of Service: BLS Non-emergency Is Patient Medicaid Pending?: No Was transportation financial coverage discussed with family?: Patient C S S Representative Location: Main [place] Destination: [facility] Financial Care Management Responsibility: None Handoff Communication: [facility] Additional Information: n/a Discharge Information Row Name ED to Hosp-Admission (Current) from 10/12/2024 in HOSP MAIN H080 Long-Term Facility Agency [facility] Jennifer Phone# [phone] Other Follow-Up Type Outpatient Dialysis Name [facility] ([address] [place] [address]) Instructions Tues/Thurs/Sat @ 6am. Arrive by 5:40 am SIGNATURE: Kin Casas RN PATIENT NAME: Elia Weston DATE: November 02, 2024 TIME: 3:21 PM NUTRITION Observed: 11/02/2024 2:04 PM Status: COMPLETED Source: [facility] ID: [id number] Author: BHASKAR RAMIREZ DTR Service: Nutrition Therapy Author Type: Tractor Driver Teamster Type: Nutrition Filed: 11/02/2024 14:04 Note Text: NUTRITION THERAPY CLERICAL ORDER FILLER NOTE SERVICE DATE: 11/02/2024 SERVICE TIME: 925 Visit Type: Length of Stay Evaluation Goals Met: Met (The patient states he has been consuming all of his meals. He would like to have his nutritional supplements changed to Nepro. Will continue to monitor for any changes in nutritional status.) Plan of Care: Supplements: Nepro Follow-Up: Tech Reassessment Nursing Admission Assessment Malnutrition Score: 0 Nutrition Intake: Diet Orders (From admission, onward) Start Ordered 11/02/24 1345 DIET SUPPLEMENTS START NOW Question Answer Comment Supplement 1 (19 years and up) NEPRO BUTTER PECAN Supplement 1 Frequency TWICE DAILY WITH MEALS 11/02/24 1330 10/22/24 2215 DIET RENAL START NOW Question: Renal Answer: 2400 MG K / 2400 MG NA 10/22/24 2205 Average Daily Calorie Intake (kcal): 1839 kcal Average Daily Protein Intake (gm): 57 gm Average intake over: 5 days Average Supplement Intake (kcal): 380 kcal Average Supplement Intake (gm): 32 gm Average supplement intake over: 3 days Appetite: Good GI Symptoms: None Anthropometrics: Body mass index is 37.66 kg/m?. Usual Weight: 113.4 kg (250 lb) Loss of lean body mass/visual muscle wasting: No Weight Change: Stable Food Preferences: Change nutritional supplements to Nepro. Allergies: No food allergies MNT Billing: $ Routine Care : 1-15 minutes SIGNATURE: Bhaskar Ramirez DTR PATIENT NAME: Elia Weston DATE: November 02, 2024 TIME: 2:04 PM PROGRESS Observed: 11/02/2024 1:53 PM Status: COMPLETED Source: [facility] HNO ID: [id number] Author: ?, ?, ? Service: Nephrology Author Type: ? Type: Progress Notes Filed: 11/02/2024 13:56 Note Text: DIALYSIS PLACEMENT AND ACCEPTANCE CONFIRMATION NOTE Per CM, plan for pt to d/c to [facility] but they do not have any dialysis chairs available onsite. Pt's family to transport to dialysis. [facility] currently full and referral was diverted to [facility]. Facility: [facility] ([address] [place] [address]) Days: //Sat Chair Time: 6:00 AM Time of First Treatment: 11/04/24 - 5:40 AM Accepting Configuration Release Manager: Dr. Sanchez Signature: Bj Rico Patient Name: Elia Weston Date: November 02, 2024 Time: 1:53 PM THERAPY NT Observed: 11/02/2024 12:32 PM Status: COMPLETED Source: [facility] HNO ID: [id number] Author: KIT HAN PTA Service: Physical Therapy Author Type: Bicycle Subassembler Type: Therapy (PT/OT/Speech/Resp) Filed: 11/02/2024 12:33 Note Text: Attestation signed by Grayson Cross PT at 11/02/2024 2:28 PM I reviewed and agree with the documentation corresponding to this therapy visit. SIGNATURE: Grayson Cross, PT DATE: November 02, 2024 TIME: 2:28 PM Physical Therapy Treatment Summary SERVICE DATE: 11/02/2024 SERVICE TIME: 1143 to 1221 ROOM: [place] [address] PT 6 Clicks Score: 17 DISCHARGE RECOMMENDATIONS Subacute/SNF Recommended Discharge Disposition Comments: . Recommended Discharge Disposition Due to: Balance deficits, Functional status decline Recommended Discharge Equipment: To Be Determined ASSESSMENT Response to Therapy Interventions: Good Participation in Activities, Improved Tolerance for Activity, Pain RN approved, Patient motivated to improved. Patient able to ambulate with RW with CGA with cues for proper technique and pacing. Patient need seated rest breaks between trials due to fatigue and pain. PRECAUTIONS Fall Risk CURRENT HOSPITAL COURSE presenting with uncontrolled pain from chest and abdominal wounds. 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 IND ADLs although he reports that bathing and dressing has been painful and time-consuming. Has been sleeping in recliner 2/2 to pain. Endorses one fall ~1 week ago from [employer] Drives. SUBJECTIVE Pt happy to be leaving today. THERAPY DIAGNOSIS Reduced mobility-other, Muscle Weakness (generalized), Abnormalities of gait and mobility-other TREATMENT INTERVENTIONS Gait Training (25927), Therapeutic Exercise (56643), Therapeutic Activity (12645) Timed Code Treatment (minutes): 38 Skilled Treatment Time (minutes): 38 TRAINING AND EDUCATION PROVIDED Assistive Device Use, Benefits of In-Hospital Mobility, Gait Pattern, Reduction of Deviations, Exercise Program, Standing Balance THERAPEUTIC SKILLS USED Activity Dosing, Assessment of Tolerance Including Vitals Response to Activity, Cues for Sequencing/Proper Technique for Activity, Cuing Verbal, Physical Assist FUNCTIONAL STATUS Bed Mobility Rolling: Stand By Assistance Supine To Sit: Contact Guard Assistance, Additional Information Scooting: Stand By Assistance Transfers Sit To Stand: Contact Guard Assistance Stand To Sit: Contact Guard Assistance Bed to Chair Contact Guard Assistance Bed To Chair Transfer Type: Stepping Bed To Chair Transfer Equipment: (iv pole) Gait Contact Guard Assistance Gait Device: Wheeled Walker General Deviations/Observations: Magali decreased, Lateral sway increased, Step length decreased Gait Distance (feet): 60', 15' Stairs (unable to safely attempt) GOALS Patient will demonstrate progress to optimize functional mobility, maximize activity tolerance and endurance to maximize function upon discharge. Rehab Potential: Good Progress Toward Goals: Progressing as expected PLAN PT Frequency: 4 Times Per Week (2) Treatment Interventions: Education, Energy Conservation Training, Functional Mobility Training, Strengthening, Balance Training, Neuromuscular Re-education Plan for Next Visit: Standing Balance, Standing Tolerance, Gait Training SIGNATURE: Kit Han PTA PATIENT NAME: Elia Weston DATE: November 02, 2024 TIME: 12:32 PM PT PNL PPP Collected: 11/02/2024 4:56 AM Status: F Source: [facility] Order Comment: Specimen Type : BLOOD SPECIMEN Ordering Facility: [facility] Address: [address] [place] [address] TYPE CODE TESTS RESULT OUT OF RANGE REFERENCE UNITS LAB 5902-2(LOINC) Prothrombin time 29.9 High 9.7-13.0 sec LAB 6301-6(LOINC) INR PPP 3.0 High 0.9-1.3 Result Comment: Vitamin K An tagonist (VKA) Therapeutic Range: INR 2 to 3 (Target INR of 2.5) Note: For patients treated with VKA drugs, such as warfarin, the [place] College [employer] Chest Physicians 2012 Guideline recommends a therapeutic INR range of 2 to 3 (target INR of 2.5). This recommendation includes high-risk patients with antiphospholipid syndrome with previous arterial or venous thromboembolism, current-generation mechanical or bioprosthetic aortic heart valve replacement. Note: Patients with mechanical aortic valve replacement and additional risk factors for thromboembolic events (atrial fibrillation, previous thromboembolism, LV dysfunction, hypercoagulable conditions) or an older generation mechanical AVR (i.e., ball in-Cage) or any mechanical MVR should have a INR therapeutic range of 2.5 to 3.5 (target INR of 3). Ranjit GH, et al. Chest 2012, 141:7S-47S Kevin RA, et al. JACC 2017, 70: 252-289 Performed By: #### 99977-2 # ### [facility] CLIA [id number] [address] [place] [address] [place] RENAL FUNC 2000 PNL SERPL Collected: 4:56 AM Status: F Source: [facility] Order Comment: Specimen Type : BLOOD SPECIMEN Ordering Facility: [facility] Address: [address] [place] [address] TYPE CODE TESTS RESULT OUT OF RANGE REFERENCE UNITS LAB 1751-7(LOINC) Albumin SerPl-mCnc 4.0 3.9-4.9 g/dL LAB 80417-1(LOINC) Calcium SerPl-mCnc 8.8 8.5-10.2 mg/dL LAB 2777-1(LOINC) Phosphate SerPl-mCnc 3.1 2.7-4.8 mg/dL LAB 2345-7(LOINC) Glucose SerPl-mCnc 87 74-99 mg/dL Result Comment: The [place] Diabetes Association (ADA) provides guidance for cutoff values for fasting glucose and random glucose. The ADA defines fasting as no caloric intake for at least 8 hours. Fasting plasma glucose results between 100 to 125 mg/dL indicate increased risk for diabetes (prediabetes). Fasting plasma glucose results greater than or equal to 126 mg/dL meet the criteria for diagnosis of diabetes. In the absence of unequivocal hyperglycemia, results should be confirmed by repeat testing. In a patient with classic symptoms of hyperglycemia or hyperglycemic crisis, random plasma glucose results greater than or equal to 200 mg/dL meet the criteria for diagnosis of diabetes. Reference: Standards of Medical Care in Diabetes 2016, [place] Diabetes Association. Diabetes Care. 2016.39(Suppl 1). LAB 3094-0(LOINC) BUN SerPl-mCnc 16 9-24 mg/ dL LAB 2160-0(LOINC) Creat SerPl-mCnc 6.26 High 0.73-1.22 mg/dL LAB 2951-2(LOINC) Sodium SerPl-sCnc 138 136-144 mmol/L LAB 2823-3(LOINC) Potassium SerPl-sCnc 4.6 3.7-5.1 mmol/L LAB 2075-0(LOINC) Chloride SerPl-sCnc 97 Low 98-107 mmol/L LAB 2028-9(LOINC) CO2 SerPl-sCnc 29 22-30 mmo l/L LAB 37355-8(LOINC) Anion Gap SerPl-sCnc 12 8-15 mmol/L LAB 34947-1(LOINC) Creatinine + eGFR Pnl SerPlBld 11 Low >=60 mL/min/1 .73m??? Result Comment: Estimated Gl omerular Filtration Rate (eGFR) is calculated using the 2020 CKD-EPI creatinine equation. This equation utilizes serum creatinine, sex, and age as parameters. The creatinine assay has traceable calibration to isotope dilution-mass spectrometry. Refer to KDIGO guidelines for clinical interpretation. In patients with unstable renal function, e.g. those with acute kidney injury, the eGFR may not accurately reflect actual GFR. Performed By: #### 00851-9 # ### [facility] CLIA [id number] [address] [place] [address] [place] THERAPY NT Observed: 11/01/2024 4:50 PM Status: COMPLETED Source: [facility] HNO ID: [id number] Author: ARTIE CHI PTA Service: Physical Therapy Author Type: Bicycle Subassembler Type: Therapy (PT/OT/Speech/Resp) Filed: 11/01/2024 16:51 Note Text: Attestation signed by Grayson Cross PT at 11/01/2024 5:33 PM I reviewed and agree with the documentation corresponding to this therapy visit. SIGNATURE: Grayson Cross PT DATE: November 01, 2024 TIME: 5:33 PM PHYSICAL THERAPY MISSED VISIT SERVICE DATE: 11/01/2024 SERVICE TIME: 1644 ROOM: [place] [address] Patient not seen due to Patient Not Available, eating. SIGNATURE: Artie Chi PTA PATIENT NAME: Elia Weston DATE: November 01, 2024 TIME: 4:51 PM CASE MANAGEM Observed: 11/01/2024 1:52 PM Status: COMPLETED Source: [facility] ID: [id number] Author: KALANI ARROYO MD Service: Care Management Author Type: Physician Type: Care Mgt Progress Note Filed: 11/02/2024 11:07 Note Text: CARE MANAGEMENT PROGRESS NOTE SERVICE DATE: 11/01/2024 SERVICE TIME: 1:52 PM LOS: 20 days Post-Acute Discharge Planning Patient Goal(s): Be able to go home, General wellness, Increase strength [place] of Choice Explained: [place] of [place] Given: Yes Level of Care Discussed: Long-Term Facility Discharge Planning Participant(s): Patient Patient/Family Comments: Anticipated # of Days Until Discharge: 1 Transport at Discharge: Transportation Arrangements: Ambulance Transportation Agency and Phone #:: [facility] [phone] Date of Trip: 11/02/24 Time of Trip: 1400 Type of Service: BLS Non-emergency Is Patient Medicaid Pending?: No Was transportation financial coverage discussed with family?: Patient C S S Representative Location: [place] Destination: [facility] Financial Care Management Responsibility: None Needs Prior to Discharge: Needs Prior to Discharge: Other: See Comment (outpatient dialysis chair) Post-Acute Discharge Plan: Pt's precert expires tomorrow. Transport scheduled, run# [id number]. Waiting on outpatient dialysis chair. Family to provide transport to dialysis from SNF. SIGNATURE: Kin Casas RN PATIENT NAME: Elia Weston DATE: November 01, 2024 TIME: 1:52 PM I spent 35 minutes of face to face time with patient, with more than 50 % of time counseling and coordination of care. Kalani Arroyo M.D., [facility] Internal Medicine-Hospital Medicine 11:07 AM November 02, 2024 PROGRESS Observed: 11/01/2024 1:42 PM Status: COMPLETED Source: [facility] HNO ID: [id number] Author: KALANI ARROYO MD Service: General Internal Medicine Author Type: Physician Type: Progress Notes Filed: 11/01/2024 13:48 Note Text: DEPARTMENT OF HOSPITAL MEDICINE PROGRESS NOTE SERVICE DATE: 11/01/2024 SERVICE TIME: 1:42 PM Hospital Medicine/Primary Attending: Kalani Arroyo MD NIGHT AND WEEKEND COVERAGE: [facility] COVERAGE: Days: [phone], please page Kalani Arroyo MD Nights: [phone], please page Team GIM 1: G/H 8th floor: [address]; Non 8th floor [address] Subjective INTERVAL HPI: Seen on dialysis I evaluated wounds and gave her a as needed dose of Dilaudid Major notes that the care home facility is set up pre-CERT has gone through but were waiting for dialysis placement INR3.5 hold Coumadin today (Wednesday 11/01) and made 2.5 Coumadin tomorrow and all other days of week Current Facility-Administered Medications Medication Dose Route Frequency NaCl 0.9% iv flush bag 20 mL INTRAVENOUS PRN dextrose 15 gram/32 mL 15 g (TRUEPLUS) 15 g ORAL PRN Or glucagon 1 mg injection 1 mg INTRAMUSCULAR PRN Or dextrose 10% iv bolus 12.5 g INTRAVENOUS PRN midodrine 20 mg tab(s) (PROAMATINE) 20 mg ORAL q [address] 40 mg tab(s) (PROTONIX) 40 mg ORAL DAILY acetaminophen 650 mg tab(s) (TYLENOL) 650 mg ORAL q 6 H PRN sevelamer carbonate 2,400 mg tab(s) (RENVELA) 2,400 mg ORAL TID w MEALS melatonin 9 mg tab(s) 9 mg ORAL DAILY (8 PM) calcitriol 1.5 mcg cap(s) (ROCALTROL) 1.5 mcg ORAL - midodrine 20 mg tab(s) (PROAMATINE) 20 mg ORAL PRN DIALYSIS Darbepoetin [place]ito In Polysorbat 60 mcg injection (ARANESP) 60 mcg SUBCUTANEOUS q MON B Complex-Vitamin C-Folic Acid 1 tablet tab(s) (JOHNSON-VIT) 1 tablet ORAL DAILY cinacalcet 60 mg tab(s) (SENSIPAR) 60 mg ORAL DAILY polyethylene glycol 3350 17 g packet 17 g ORAL BID senna 8.6 mg tab(s) (SENOKOT) 8.6 mg ORAL AT BEDTIME bisacodyl EC 5 mg tab(s) (DULCOLAX) 5 mg ORAL DAILY oxyCODONE IR 5-10 mg tab(s) (ROXICODONE) 5-10 mg ORAL q 4 H PRN warfarin order for discharge OTHER PRN sodium zirconium cyclosilicate 10 g oral packet (LOKELMA) 10 g ORAL DAILY ondansetron orally disintegrating 4 mg tab(s) (ZOFRAN ODT) 4 mg ORAL q 6 H PRN prochlorperazine 5 mg injection (COMPAZINE) 5 mg INTRAVENOUS q 4 H PRN [START ON 11/02/2024] warfarin 2.5 mg tab(s) (COUMADIN) 2.5 mg ORAL EVERY [id number] HYDROmorphone 0.5 mg injection (DILAUDID) 0.5 mg INTRAVENOUS BID PRN Objective PHYSICAL EXAM: BP 119/60 Pulse 65 Temp (Src) 97.5 (Axillary) Resp 18 Ht 5' 9.685 (1.77m) Wt 260 lb 2.3 oz (118.0kg) SpO2 99% BMI 37.66 kg/(m2). O2 Therapy: Continuous Positive Airway Pressure, Liters: 2 AAND O x 4 No distress Right sided TDC present Lungs with decreased breath sounds at bases. 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 DATA: Diagnostic tests reviewed for today's visit: Most recent labs Most recent imaging INR Date Value Ref Range Status 11/01/2024 3.5 (H) 0.9 - 1.3 Final Comment: Vitamin K Antagonist (VKA) Therapeutic Range: INR 2 to 3 (Target INR of 2.5) Note: For patients treated with VKA drugs, such as warfarin, the [place] [employer] Physicians 2012 Guideline recommends a therapeutic INR range of 2 to 3 (target INR of 2.5). This recommendation includes high-risk patients with antiphospholipid syndrome with previous arterial or venous thromboembolism, current-generation mechanical or bioprosthetic aortic heart valve replacement. Note: Patients with mechanical aortic valve replacement and additional risk factors for thromboembolic events (atrial fibrillation, previous thromboembolism, LV dysfunction, hypercoagulable conditions) or an older generation mechanical AVR (i.e., ball in-Cage) or any mechanical MVR should have a INR therapeutic range of 2.5 to 3.5 (target INR of 3). Alanatt GH, et al. Chest 2012, 141:7S-47S Kevin RA, et al. JAC 2017, 70: 252-289 Recent Labs 11/01/24 1113 10/30/24 0900 PCGLUCOSE 111* 101* Recent Labs 11/01/24 0515 10/31/24 0749 10/31/24 0355 10/30/24 0553 WBC -- -- 5.47 5.57 HB -- -- 8.7* 8.8* HCT -- -- 29.5* 30.4* PLT -- -- 146* 145* INR 3.5* -- 2.8* 2.3* APTT -- 88.7* 93.4* 74.5* NA 137 -- 138 136 K 5.6* -- 4.4 4.4 CHLOR 97* -- 97* 95* CO2 22 -- 26 27 BUN 30* -- 22 15 CREAT 9.79* -- 7.81* 5.79* GLUC 82 -- 84 92 CA 8.6 -- 8.3* 8.8 P 4.1 -- 3.8 3.1 Recent Labs 11/01/24 0515 10/31/24 0355 10/30/24 0553 ALB 3.7* 3.7* 3.9 Assessment/Plan Elia Weston is a 44 year old male with h/o atrial fibrillation and severe mitral stenosis s/p mitral valve replacement with On-x valve, Maze procedure and RADHA clip on 08/21/2021, currently on Coumadin, ESRD on IHD via left femoral vein TDC on MWF([facility] ), 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 He also expressed a poor pain control on oxycodone.Patient follows withpain management as outpatient for pain associated with chest and abdominal wounds. He currently takes oxycodone 10 mg every 8 hours.Denied fevers or foul-smelling discharge from both wounds. Receiving wound care at home. 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 - Vascular surgery input appreciated -- no surgical intervention available. - S/P IR venoplasty, placement of Right chest wall TDC and removal of femoral TDC - TDC should not be removed without consulting IR in this patient. - No evidence of active obstruction now Chest and abdomen ulcerations -- ischemic ulcers on biopsy - No overt evidence of infection, observing off abx - seen today, 2/3 inch. There are 2 open chest wall wounds circular about a quarter size in the left chest and at nickel sized on the right side -healing - Evaluated by dermatology and s/p biopsy, continuing wound care in the meantime Derm recs, Alethea Lackey, Dr. Pedroza: Previous skin biopsy revealed ulcer with dermal fibrosis, vascular ectasia, and reactive vascular proliferation - overall nonspecific findings but could be related to chronic ischemia given patient's history and clinical morphology. Punch biopsy showing dermal fibrosis and a reactive vascular proliferation which is most consistent with reactive ischemic changes in the correct clinical context. Features of pyoderma gangrenosum, calciphylaxis not identified. Tissue cultures no growth on bacterial culture and NGTD on fungal/AFB. - Continue wound care for ulcerations: - Xeroform or Vaseline gauze - Followed by ABD pad and tape to secure - Please arrange for outpatient wound care referral at discharge as this patient will require close follow up for wound management - patient prefers outpatient wound care to home health wound care - Pain control with prn oxycodone, dilaudid for breakthrough, appreciate pain med input. Atrial fibrillation and severe mitral stenosis s/p mechanical mitral valve replacement with On-x valve (INR goal 2.5-3.5), Maze procedure and RADHA clip on 08/21/2021. I evaluated wounds and gave her a as needed dose of Dilaudid INR3.5 hold Coumadin today (Wednesday 11/01) and made 2.5 Coumadin tomorrow and all other days of week ESRD on hemodialysis via RIGHT chest TDC on MW Hyperkalemia - Nephrology following and optimizing HD - Alfred + optimize bowel regimen. - Renal diet Anemia of ESRD -Hb at baseline(8.0-8.5) GERD -continue pantoprazole Obesity YEIMY on CPAP Secondary hyperparathyroidism -continue calcitriol, Cinacalcet, sevelamer Exogenous Class 2 Obesity Medication and Non-Pharmacologic VTE Prophylaxis/Anticoagulants Anticoagulant AND Antiplatelet Medications (From admission, onward) Start Dose Route Frequency Last Action Ordered Stop 11/02/24 1700 warfarin 2.5 mg tab(s) (COUMADIN) 2.5 mg ORAL EVERY INL-[id number]-FRI-FRI Ordered 11/01/24 0915 -- 10/12/24 1111 activity - mobilize patient (nj,ms) VTE Prophylaxis: VTE prophylaxis appropriate Disposition: SNF care home facility is set up pre-CERT has gone through but were waiting for dialysis placement Plan of care discussed with Provider, RN, Patient I spent 35 minutes of face to face time with patient, with more than 50 % of time counseling and coordination of care. Kalani Arroyo M.D., [facility] Internal Medicine-Hospital Medicine CASE MANAGEM Observed: 11/01/2024 12:38 PM Status: COMPLETED Source: [facility] ID: [id number] Author: ?, ?, ? Service: ? Author Type: ? Type: Care Mgt Progress Note Filed: 11/01/2024 12:39 Note Text: CARE MANAGEMENT PROGRESS NOTE SERVICE DATE: 11/01/2024 SERVICE TIME: 12:39 PM LOS: 20 days Discharge packet completed and dropped off by mechanic assistant Jr Bee. Packet is missing AVS/DC forms, please reach out to case investigator with any discharge related questions. SIGNATURE: Jr Bee PATIENT NAME: Elia Weston DATE: November 01, 2024 TIME: 12:39 PM THERAPY NT Observed: 11/01/2024 10:59 AM Status: COMPLETED Source: [facility] HNO ID: [id number] Author: ARTIE CHI PTA Service: Physical Therapy Author Type: Bicycle Subassembler Type: Therapy (PT/OT/Speech/Resp) Filed: 11/01/2024 10:59 Note Text: Attestation signed by Grayson Cross, PT at 11/01/2024 12:11 PM I reviewed and agree with the documentation corresponding to this therapy visit. SIGNATURE: Grayson Cross, RUSS DATE: November 01, 2024 TIME: 12:11 PM PHYSICAL THERAPY MISSED VISIT SERVICE DATE: 11/01/2024 SERVICE TIME: 938 ROOM: [place] [id number] (Q6-1 Hemodialysis) Patient not seen due to Test / Procedure. SIGNATURE: Artie Chi PTA PATIENT NAME: Elia Weston DATE: November 01, 2024 TIME: 10:59 AM CONSULT PROG Observed: 11/01/2024 10:51 AM Status: COMPLETED Source: [facility] HNO ID: [id number] Author: LUCILLE GOMEZ APRN.CNP Service: Nephrology Author Type: Nurse Practitioner Type: Consult Progress Note Filed: 11/01/2024 10:57 Note Text: CONSULT PROGRESS NOTE NEPHROLOGY Q6 SERVICE SERVICE DATE: 11/01/2024 SERVICE TIME: 10:51 AM SUBJECTIVE INTERVAL HISTORY: - Patient seen on dialysis, single evaluation. Orders confirmed and documented per LEONEL. Possible d/c to SNF, will need HD confirmed, HD coordinator aware and referral sent. -Patient tolerating dialysis well -Denies any chest pain, shortness of breath or dizziness -Denies any nausea, vomiting, muscle aches or headaches MEDICATIONS: Current Facility-Administered Medications Medication Dose Route Frequency NaCl 0.9% iv flush bag 20 mL INTRAVENOUS PRN dextrose 15 gram/32 mL 15 g (TRUEPLUS) 15 g ORAL PRN Or glucagon 1 mg injection 1 mg INTRAMUSCULAR PRN Or dextrose 10% iv bolus 12.5 g INTRAVENOUS PRN midodrine 20 mg tab(s) (PROAMATINE) 20 mg ORAL q [address] 40 mg tab(s) (PROTONIX) 40 mg ORAL DAILY acetaminophen 650 mg tab(s) (TYLENOL) 650 mg ORAL q 6 H PRN sevelamer carbonate 2,400 mg tab(s) (RENVELA) 2,400 mg ORAL TID w MEALS melatonin 9 mg tab(s) 9 mg ORAL DAILY (8 PM) calcitriol 1.5 mcg cap(s) (ROCALTROL) 1.5 mcg ORAL MO-WE- midodrine 20 mg tab(s) (PROAMATINE) 20 mg ORAL PRN DIALYSIS Darbepoetin Osito In Polysorbat 60 mcg injection (ARANESP) 60 mcg SUBCUTANEOUS q MON B Complex-Vitamin C-Folic Acid 1 tablet tab(s) (JOHNSON-VIT) 1 tablet ORAL DAILY cinacalcet 60 mg tab(s) (SENSIPAR) 60 mg ORAL DAILY polyethylene glycol 3350 17 g packet 17 g ORAL BID senna 8.6 mg tab(s) (SENOKOT) 8.6 mg ORAL AT BEDTIME bisacodyl EC 5 mg tab(s) (DULCOLAX) 5 mg ORAL DAILY oxyCODONE IR 5-10 mg tab(s) (ROXICODONE) 5-10 mg ORAL q 4 H PRN warfarin order for discharge OTHER PRN sodium zirconium cyclosilicate 10 g oral packet (LOKELMA) 10 g ORAL DAILY HYDROmorphone 0.5 mg injection (DILAUDID) 0.5 mg INTRAVENOUS DAILY PRN ondansetron orally disintegrating 4 mg tab(s) (ZOFRAN ODT) 4 mg ORAL q 6 H PRN prochlorperazine 5 mg injection (COMPAZINE) 5 mg INTRAVENOUS q 4 H PRN [START ON 11/02/2024] warfarin 2.5 mg tab(s) (COUMADIN) 2.5 mg ORAL EVERY [id number]-FRI-FRI OBJECTIVE PHYSICAL EXAM: BP 119/60 Pulse 65 Temp 36.4 ?C (97.5 ?F) (Axillary) Resp 18 Ht 177 cm (5' 9.69) Wt 118 kg (260 lb 2.3 oz) SpO2 99% BMI 37.66 kg/m? No intake or output data in the 24 hours ending 11/01/24 1051 GENERAL: Awake, alert, in no acute distress SKIN: Warm and dry HEENT: Normocephalic, Atraumatic LUNGS: Normal respiratory effort. CARDIAC: RRR ABDOMEN: Soft, non-tender, non-distended. EXTREMITIES: + LE edema NEURO: AOx3, normal speech Vascular Access: Hemodialysis catheter location: Right Tunneled internal jugular. Exit site demonstrates: normal findings DATA: Diagnostic tests reviewed for today's visit: Recent Labs 11/01/2451410/31/2435410/30/24 0553 10/29/24 0943 10/28/24 0830 NA 137 138 136 141 135* K 5.6* 4.4 4.4 4.4 4.3 CHLOR 97* 97* 95* 92* 93* CO2 22 26 27 27 29 BUN 30* 22 15 25* 17 CREAT 9.79* 7.81* 5.79* 8.43* 6.18* GLUC 82 84 92 85 80 ANION 18* 15 14 22* 13 CA 8.6 8.3* 8.8 8.0* 8.6 P 4.1 3.8 3.1 4.3 3.6 Recent Labs 10/31/2435410/30/24 0553 10/29/24 0943 WBC 5.47 5.57 4.70 HB 8.7* 8.8* 8.4* HCT 29.5* 30.4* 28.4* PLT 146* 145* 143* ASSESSMENT: 44 year old male with Pmhx of Afib, hx MVR on coumadin, ESRD on HD MWF, hyperparathyroidism, HTN, hx of SVC syndrome, HLD, obesity and YEIMY presenting with complaint of painful chronic chest wound and missed dialysis. Of note, he was recently admitted for a dislodged catheter and had femoral TDC 50cm replacement 10/07/24. Course has been complicated by SVC syndrome workup, with a history of complication of multiple bilateral IJ TDC placement/associated thrombosis also leading to chest wall and abdominal varices. Vascular surgery was consulted. Nephrology consulted for ESRD management 1. ESRD Hx First HD: 2005 Unit: [facility] Configuration Release Manager: Dr. Melendez Days: MWF EDW: 114.1 kg Time: 4.5 hrs Access: RIJ TDC placed 10/22/24 this admission SHPT: rocaltrol 1.5mcg TIW, sensipar 60mg daily, PTH 1500 Heparin: 10,000u bolus 2.Electrolytes/acid-base: -Hyperkalemia - control with DRYWALL SANDER -Sodium stable -Acid/base - stable 3.Hypertension/Volume Status: -BP stable on midodrine. -EDW 114.1 kg, with UF goal 2.5 L as tolerated -mild hypervolemic on exam 4.Anemia of CKD: -hgb below goal -ANABELLA: weekly aranesp 5.Secondary renal hyperparathyroidism: -Phos stable on binder -Calcium stable PLAN: -IHD today x 4.5 hours, 2 K bath with UF goal 2.5 L -Next dialysis planned for Friday -Will need o/p HD confirmed prior to d/c -Continue aranesp -Continue midodrine -continue renvela, sensipar, lokelma, calcitriol Standard ESRD recommendations and precautions: - Strict IANDOs and Daily weight - Consider a RENAL Diet for HD patients - Fluid restriction < 1 L - Start Nephrocap or other renal multivitamin to replace water-soluble vitamins lost during dialysis - Avoid Lovenox, Demerol, Morphine, K-containing IVF, Mg- or Phos- containing enemas - Dose meds GFR 10 ml/min Outpatient dialysis disposition plan: contact [phone] and ask to speak with the director of front office as needed for assistance with post-discharge arrangements. Please DO NOT schedule patient for a nephrology follow up appointment. Kidney care will be provided by the primary data warehousing engineer at their dialysis unit upon hospital discharge. SIGNATURE: Lucille Gomez APRN.CNP PATIENT NAME: Elia Weston DATE: November 01, 2024 TIME: 10:51 AM PAGER: [phone] FOR AFTER HOUR CONCERNS BETWEEN 5PM - 7AM CONTACT ON-CALL NEPHROLOGY FELLOW [phone] Disclosures: Parts of the current progress note may have been copied from a previous note. CASE MANAGEM Observed: 11/01/2024 10:32 AM Status: COMPLETED Source: [facility] ID: [id number] Author: KIN CASAS RN Service: Care Management Author Type: Registered Nurse Type: Care Mgt Progress Note Filed: 11/02/2024 11:52 Note Text: Attestation signed by Kalani Arroyo MD at 11/02/2024 1:24 PM I spent 35 minutes of face to face time with patient, with more than 50 % of time counseling and coordination of care. Kalani Arroyo M.D., [facility] Internal Medicine-[facility] Medicine CARE MANAGEMENT PROGRESS NOTE SERVICE DATE: 11/01/2024 SERVICE TIME: 10:32 AM LOS: 20 days Physician Certification of Less Than 30 Days Skilled Needs Earliest Possible Discharge Date: 11/01/24 To the best of my knowledge, all information provided about the individual is a true and an accurate reflection of Elia Weston's needs. I certify that following the inpatient level of care, a post-acute nursing facility stay is required for less than 30 days related to the condition(s) for which the patient was treated during the inpatient level of care: Principal Problem: ESRD (end stage renal disease) on dialysis (HCC) Active Problems: HTN (hypertension) YEIMY (obstructive sleep apnea) Secondary hyperparathyroidism, renal (HCC) 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 Personal history of DVT (deep vein thrombosis) PAF (paroxysmal atrial fibrillation) (HCC) History of stroke Hypotension, chronic Anemia due to stage 5 chronic kidney disease, not on chronic dialysis (HCC) (HCC) Status post Maze operation for atrial fibrillation Skin ulcer, limited to breakdown of skin (HCC) SVC syndrome Generalized weakness Impaired functional mobility, balance, gait, and endurance Ischemic ulcer with fat layer exposed ([facility]) Resolved Problems: * No resolved hospital problems. * Attending Physician: Kalani Arroyo MD SIGNATURE: Kin Casas RN PATIENT NAME: Elia Weston DATE: November 01, 2024 TIME: 10:32 AM ALLIED HEALTH Observed: 11/01/2024 10:28 AM Status: COMPLETED Source: [facility] HNO ID: [id number] Author: LOLY GREWAL Art Therapist Service: Art Therapy Author Type: Therapist Type: Allied Health Filed: 11/01/2024 11:34 Note Text: ART THERAPY NOTE SERVICE DATE: 11/01/2024 SERVICE TIME: 10:28AM Referred By: PT Reason for Referral: Self-Expression / Relaxation Session Type: Follow Up Follow Up: Will Follow Up as Able COMMENTS: Pt unavailable upon attempt due to out of room for test / procedure. Will follow up as able. SIGNATURE: Nathan Tyler Therapist PATIENT NAME: Elia Weston DATE: November 01, 2024 TIME: 11:33 AM PAGER/CONTACT #: [phone] RENAL FUNC 1999 PNL SERPL Collected: 5:15 AM Status: F Source: [facility] Order Comment: Specimen Type : BLOOD SPECIMEN Ordering Facility: [facility] Address: [address] [place] [address] TYPE CODE TESTS RESULT OUT OF RANGE REFERENCE UNITS LAB 1751-7(LOINC) Albumin SerPl-mCnc 3.7 Low 3.9-4.9 g/dL LAB 31262-6(LOINC) Calcium SerPl-mCnc 8.6 8.5-10.2 mg/dL LAB 2777-1(LOINC) Phosphate SerPl-mCnc 4.1 2.7-4.8 mg/dL LAB 2345-7(LOINC) Glucose SerPl-mCnc 82 74-99 mg/dL Result Comment: The [place] Diabetes Association (ADA) provides guidance for cutoff values for fasting glucose and random glucose. The ADA defines fasting as no caloric intake for at least 8 hours. Fasting plasma glucose results between 100 to 125 mg/dL indicate increased risk for diabetes (prediabetes). Fasting plasma glucose results greater than or equal to 126 mg/dL meet the criteria for diagnosis of diabetes. In the absence of unequivocal hyperglycemia, results should be confirmed by repeat testing. In a patient with classic symptoms of hyperglycemia or hyperglycemic crisis, random plasma glucose results greater than or equal to 200 mg/dL meet the criteria for diagnosis of diabetes. Reference: Standards of Medical Care in Diabetes 2016, [place] Diabetes Association. Diabetes Care. 2016.39(Suppl 1). LAB 3094-0(LOINC) BUN SerPl-mCnc 30 High 9-24 mg/ dL LAB 2160-0(LOINC) Creat SerPl-mCnc 9.79 High 0.73-1.22 mg/dL LAB 2951-2(LOINC) Sodium SerPl-sCnc 137 136-144 mmol/L LAB 2823-3(LOINC) Potassium SerPl-sCnc 5.6 High 3.7-5.1 mmol/L LAB 2075-0(LOINC) Chloride SerPl-sCnc 97 Low 98-107 mmol/L LAB 2028-9(LOINC) CO2 SerPl-sCnc 22 22-30 mmo l/L LAB 94425-3(LOINC) Anion Gap SerPl-sCnc 18 High 8-15 mmol/L LAB 17360-5(LOINC) Creatinine + eGFR Pnl SerPlBld 6 Low >=60 mL/min/1 .73m??? Result Comment: Estimated Gl omerular Filtration Rate (eGFR) is calculated using the 2020 CKD-EPI creatinine equation. This equation utilizes serum creatinine, sex, and age as parameters. The creatinine assay has traceable calibration to isotope dilution-mass spectrometry. Refer to KDIGO guidelines for clinical interpretation. In patients with unstable renal function, e.g. those with acute kidney injury, the eGFR may not accurately reflect actual GFR. Performed By: #### 24250-2 # ### [facility] CLIA [id number] [address] [place] [address] [place] PT PNL PPP Collected: 11/01/2024 5:15 AM Status: F Source: [facility] Order Comment: Specimen Type : BLOOD SPECIMEN Ordering Facility: [facility] Address: [address] [place] [address] TYPE CODE TESTS RESULT OUT OF RANGE REFERENCE UNITS LAB 5902-2(LOINC) Prothrombin time 34.7 High 9.7-13.0 sec LAB 6301-6(LOINC) INR PPP 3.5 High 0.9-1.3 Result Comment: Vitamin K An tagonist (VKA) Therapeutic Range: INR 2 to 3 (Target INR of 2.5) Note: For patients treated with VKA drugs, such as warfarin, the [place] [employer]icians 2012 Guideline recommends a therapeutic INR range of 2 to 3 (target INR of 2.5). This recommendation includes high-risk patients with antiphospholipid syndrome with previous arterial or venous thromboembolism, current-generation mechanical or bioprosthetic aortic heart valve replacement. Note: Patients with mechanical aortic valve replacement and additional risk factors for thromboembolic events (atrial fibrillation, previous thromboembolism, LV dysfunction, hypercoagulable conditions) or an older generation mechanical AVR (i.e., ball in-Cage) or any mechanical MVR should have a INR therapeutic range of 2.5 to 3.5 (target INR of 3). Ranjit GH, et al. Chest 2012, 141:7S-47S Kevin RA, et al. JACC 2017, 70: 252-289 Performed By: #### 40970-1 # ### [facility] IA [id number] [address] [place] [address] [place] PROGRESS Observed: 10/31/2024 3:14 PM Status: COMPLETED Source: [facility] HNO ID: [id number] Author: KALANI ARROYO MD Service: General Internal Medicine Author Type: Physician Type: Progress Notes Filed: 10/31/2024 15:17 Note Text: DEPARTMENT OF HOSPITAL MEDICINE PROGRESS NOTE SERVICE DATE: 10/31/2024 SERVICE TIME: 3:15 PM Hospital Medicine/Primary Attending: Kalani Arroyo MD NIGHT AND WEEKEND COVERAGE: [facility] COVERAGE: Days: [phone], please page Kalani Arroyo MD Nights: [phone], please page Team GIM 1: G/H 8th floor: [phone]; Non 8th floor [phone] Subjective INTERVAL HPI: No complaints Spoke w/ while he was on video call w/ her Stopped heparin drip INR 2.8 Coumadin 5 mg Stable for DC when bed available. Current Facility-Administered Medications Medication Dose Route Frequency NaCl 0.9% iv flush bag 20 mL INTRAVENOUS PRN dextrose 15 gram/32 mL 15 g (TRUEPLUS) 15 g ORAL PRN Or glucagon 1 mg injection 1 mg INTRAMUSCULAR PRN Or dextrose 10% iv bolus 12.5 g INTRAVENOUS PRN midodrine 20 mg tab(s) (PROAMATINE) 20 mg ORAL q [address] 40 mg tab(s) (PROTONIX) 40 mg ORAL DAILY acetaminophen 650 mg tab(s) (TYLENOL) 650 mg ORAL q 6 H PRN sevelamer carbonate 2,400 mg tab(s) (RENVELA) 2,400 mg ORAL TID w MEALS melatonin 9 mg tab(s) 9 mg ORAL DAILY (8 PM) calcitriol 1.5 mcg cap(s) (ROCALTROL) 1.5 mcg ORAL MO-WE- midodrine 20 mg tab(s) (PROAMATINE) 20 mg ORAL PRN DIALYSIS Darbepoetin Osito In Polysorbat 60 mcg injection (ARANESP) 60 mcg SUBCUTANEOUS q MON B Complex-Vitamin C-Folic Acid 1 tablet tab(s) (JOHNSON-VIT) 1 tablet ORAL DAILY cinacalcet 60 mg tab(s) (SENSIPAR) 60 mg ORAL DAILY polyethylene glycol 3350 17 g packet 17 g ORAL BID senna 8.6 mg tab(s) (SENOKOT) 8.6 mg ORAL AT BEDTIME bisacodyl EC 5 mg tab(s) (DULCOLAX) 5 mg ORAL DAILY oxyCODONE IR 5-10 mg tab(s) (ROXICODONE) 5-10 mg ORAL q 4 H PRN warfarin order for discharge OTHER PRN sodium zirconium cyclosilicate 10 g oral packet (LOKELMA) 10 g ORAL DAILY HYDROmorphone 0.5 mg injection (DILAUDID) 0.5 mg INTRAVENOUS DAILY PRN ondansetron orally disintegrating 4 mg tab(s) (ZOFRAN ODT) 4 mg ORAL q 6 H PRN prochlorperazine 5 mg injection (COMPAZINE) 5 mg INTRAVENOUS q 4 H PRN warfarin 5 mg tab(s) (COUMADIN) 5 mg ORAL DAILY - WARFARIN Objective PHYSICAL EXAM: BP 109/69 Pulse 63 Temp (Src) 98.4 (Oral) Resp 20 Ht 5' 9.685 (1.77m) Wt 260 lb 2.3 oz (118.0kg) SpO2 100% BMI 37.66 kg/(m2). O2 Therapy: Room Air, Liters: 2 AAND O x 4 No distress Right sided TDC present Lungs with decreased breath sounds at bases. 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 DATA: Diagnostic tests reviewed for today's visit: Most recent labs Most recent imaging INR Date Value Ref Range Status 10/31/2024 2.8 (H) 0.9 - 1.3 Final Comment: Vitamin K Antagonist (VKA) Therapeutic Range: INR 2 to 3 (Target INR of 2.5) Note: For patients treated with VKA drugs, such as warfarin, the [place] [employer]icians 2012 Guideline recommends a therapeutic INR range of 2 to 3 (target INR of 2.5). This recommendation includes high-risk patients with antiphospholipid syndrome with previous arterial or venous thromboembolism, current-generation mechanical or bioprosthetic aortic heart valve replacement. Note: Patients with mechanical aortic valve replacement and additional risk factors for thromboembolic events (atrial fibrillation, previous thromboembolism, LV dysfunction, hypercoagulable conditions) or an older generation mechanical AVR (i.e., ball in-Cage) or any mechanical MVR should have a INR therapeutic range of 2.5 to 3.5 (target INR of 3). Ranjit GH, et al. Chest 2012, 141:7S-47S Kevin RA, et al. [facility] 2017, 70: 252-289 Recent Labs 10/30/24 0900 PCGLUCOSE 101* Recent Labs 10/31/24 0749 10/31/24 0355 10/30/24 0553 10/29/24 0943 WBC -- 5.47 5.57 4.70 HB -- 8.7* 8.8* 8.4* HCT -- 29.5* 30.4* 28.4* PLT -- 146* 145* 143* INR -- 2.8* 2.3* 2.2* APTT 88.7* 93.4* 74.5* 75.2* NA -- 138 136 141 K -- 4.4 4.4 4.4 CHLOR -- 97* 95* 92* CO2 -- 26 27 27 BUN -- 22 15 25* CREAT -- 7.81* 5.79* 8.43* GLUC -- 84 92 85 CA -- 8.3* 8.8 8.0* P -- 3.8 3.1 4.3 Recent Labs 10/31/24 0355 10/30/24 0553 10/29/24 0943 ALB 3.7* 3.9 3.9 Assessment/Plan Elia Weston is a 44 year old male with h/o atrial fibrillation and severe mitral stenosis s/p mitral valve replacement with On-x valve, Maze procedure and RADHA clip on 08/21/2021, currently on Coumadin, ESRD on IHD via left femoral vein TDC on F([facility] ), 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 He also expressed a poor pain control on oxycodone.Patient follows withpain management as outpatient for pain associated with chest and abdominal wounds. He currently takes oxycodone 10 mg every 8 hours.Denied fevers or foul-smelling discharge from both wounds. Receiving wound care at home. 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 - Vascular surgery input appreciated -- no surgical intervention available. - S/P IR venoplasty, placement of Right chest wall TDC and removal of femoral TDC - TDC should not be removed without consulting IR in this patient. - No evidence of active obstruction now Chest and abdomen ulcerations -- ischemic ulcers on biopsy - No overt evidence of infection, observing off abx -healing - Evaluated by dermatology and s/p biopsy, continuing wound care in the meantime - Pain control with prn oxycodone, dilaudid for breakthrough, appreciate pain med input. Atrial fibrillation and severe mitral stenosis s/p mechanical mitral valve replacement with On-x valve (INR goal 2.5-3.5), Maze procedure and RADHA clip on 08/21/2021. Coumadin 5 mg today ESRD on hemodialysis via RIGHT chest TDC on MWF Hyperkalemia - Nephrology following and optimizing HD - Lokelma + optimize bowel regimen. - Renal diet Anemia of ESRD -Hb at baseline(8.0-8.5) GERD -continue pantoprazole Obesity YEIMY on CPAP Secondary hyperparathyroidism -continue calcitriol, Cinacalcet, sevelamer Exogenous Class 2 Obesity Medication and Non-Pharmacologic VTE Prophylaxis/Anticoagulants Anticoagulant AND Antiplatelet Medications (From admission, onward) Start Dose Route Frequency Last Action Ordered Stop 10/31/24 1700 warfarin 5 mg tab(s) (COUMADIN) 5 mg ORAL DAILY - WARFARIN Ordered 10/30/24 1751 -- 10/12/24 1111 activity - mobilize patient (nj,ms) VTE Prophylaxis: VTE prophylaxis appropriate Disposition: SNF Plan of care discussed with Provider, RN, Patient I spent 35 minutes of face to face time with patient, with more than 50 % of time counseling and coordination of care. Kalani Arryoo M.D., [facility] Medicine PTT, ANTICOAGULANT THERAPY Collected: 0 10/31/2024 7:49 AM Status: F Source: [facility] Order Comment: Specimen Type : BLOOD SPECIMEN Ordering Facility: [facility] Address: [address] [place] [address] TYPE CODE TESTS RESULT OUT OF RANGE REFERENCE UNITS LAB 58670-8(LOINC) aPTT PPP 88.7 High 23.0-32.4 sec Performed By: #### PTTAC ### # [facility] CLIA [id number] [address] [facility] [place] [address] [place] RENAL FUNC 2000 PNL SERPL Collected: 3:55 AM Status: F Source: [facility] Order Comment: Specimen Type : BLOOD SPECIMEN Ordering Facility: [facility] Address: [address] [place] [address] TYPE CODE TESTS RESULT OUT OF RANGE REFERENCE UNITS LAB 1751-7(LOINC) Albumin SerPl-mCnc 3.7 Low 3.9-4.9 g/dL LAB 15779-9(LOINC) Calcium SerPl-mCnc 8.3 Low 8.5-10.2 mg/dL LAB 2777-1(LOINC) Phosphate SerPl-mCnc 3.8 2.7-4.8 mg/dL LAB 2345-7(LOINC) Glucose SerPl-mCnc 84 74-99 mg/dL Result Comment: The [place] Diabetes Association (ADA) provides guidance for cutoff values for fasting glucose and random glucose. The ADA defines fasting as no caloric intake for at least 8 hours. Fasting plasma glucose results between 100 to 125 mg/dL indicate increased risk for diabetes (prediabetes). Fasting plasma glucose results greater than or equal to 126 mg/dL meet the criteria for diagnosis of diabetes. In the absence of unequivocal hyperglycemia, results should be confirmed by repeat testing. In a patient with classic symptoms of hyperglycemia or hyperglycemic crisis, random plasma glucose results greater than or equal to 200 mg/dL meet the criteria for diagnosis of diabetes. Reference: Standards of Medical Care in Diabetes 2016, [place] Diabetes Association. Diabetes Care. 2016.39(Suppl 1). LAB 3094-0(LOINC) BUN SerPl-mCnc 22 9-24 mg/ dL LAB 2160-0(LOINC) Creat SerPl-mCnc 7.81 High 0.73-1.22 mg/dL LAB 2951-2(LOINC) Sodium SerPl-sCnc 138 136-144 mmol/L LAB 2823-3(LOINC) Potassium SerPl-sCnc 4.4 3.7-5.1 mmol/L LAB 2075-0(LOINC) Chloride SerPl-sCnc 97 Low 98-107 mmol/L LAB 2027-9(LOINC) CO2 SerPl-sCnc 26 22-30 mmo l/L LAB 73595-7(LOINC) Anion Gap SerPl-sCnc 15 8-15 mmol/L LAB 95657-6(LOINC) Creatinine + eGFR Pnl SerPlBld 8 Low >=60 mL/min/1 .73m??? Result Comment: Estimated Gl omerular Filtration Rate (eGFR) is calculated using the 2020 CKD-EPI creatinine equation. This equation utilizes serum creatinine, sex, and age as parameters. The creatinine assay has traceable calibration to isotope dilution-mass spectrometry. Refer to KDIGO guidelines for clinical interpretation. In patients with unstable renal function, e.g. those with acute kidney injury, the eGFR may not accurately reflect actual GFR. Performed By: #### 01247-6 # ### [facility] CLIA [id number] [address] [place] [address] STATES OF [facility] PT PNL PPP Collected: 10/31/2024 3:55 AM Status: F Source: [facility] Order Comment: Specimen Type : BLOOD SPECIMEN Ordering Facility: [facility] Address: [address] [place] [address] TYPE CODE TESTS RESULT OUT OF RANGE REFERENCE UNITS LAB 5902-2(LOINC) Prothrombin time 27.8 High 9.7-13.0 sec LAB 6301-6(LOINC) INR PPP 2.8 High 0.9-1.3 Result Comment: Vitamin K An tagonist (VKA) Therapeutic Range: INR 2 to 3 (Target INR of 2.5) Note: For patients treated with VKA drugs, such as warfarin, the [place] [employer] 2012 Guideline recommends a therapeutic INR range of 2 to 3 (target INR of 2.5). This recommendation includes high-risk patients with antiphospholipid syndrome with previous arterial or venous thromboembolism, current-generation mechanical or bioprosthetic aortic heart valve replacement. Note: Patients with mechanical aortic valve replacement and additional risk factors for thromboembolic events (atrial fibrillation, previous thromboembolism, LV dysfunction, hypercoagulable conditions) or an older generation mechanical AVR (i.e., ball in-Cage) or any mechanical MVR should have a INR therapeutic range of 2.5 to 3.5 (target INR of 3). Ranjit YOUSSEF, et al. Chest 2012, 141:7S-47S Keivn RA, et al. [facility] 2017, 70: 252-289 Performed By: #### 30861-7, PTTAC #### [facility] CLIA [id number] [address] [place] [address] [place] PTT, ANTICOAGULANT THERAPY Collected: 0 10/31/2024 3:55 AM Status: F Source: [facility] Order Comment: Specimen Type : BLOOD SPECIMEN Ordering Facility: [facility] Address: [address] [place] [address] TYPE CODE TESTS RESULT OUT OF RANGE REFERENCE UNITS LAB 27627-8([facility]) aPTT PPP 93.4 High 23.0-32.4 sec Performed By: #### 84604-9, PTTAC #### [facility] CLIA [id number] [address] [place] [address] [place] CBC PNL BLD AUTO Collected: 3:55 AM Status: F Source: [facility] Order Comment: Specimen Type : BLOOD SPECIMEN Ordering Facility: [facility] Address: [address] [place] [address] TYPE CODE TESTS RESULT OUT OF RANGE REFERENCE UNITS LAB 6690-2(LOINC) WBC # Bld Auto 5.47 3.70-11.00 k/uL LAB 789-8(LOINC) RBC # Bld Auto 3.05 Low 4.20-6.00 m/uL LAB 718-7(LOINC) Hgb Bld-mCnc 8.7 Low 13.0-17.0 g/dL LAB 4544-3(LOINC) Hct VFr Bld Auto 29.5 Low 39.0-51.0 % LAB 787-2(LOINC) MCV RBC Auto 96.7 80.0-100.0 fL LAB 785-6(LOINC) MCH RBC Qn Auto 28.5 26.0-34.0 pg LAB 786-4(LOINC) MCHC RBC Auto-mCnc 29.5 Low 30.5-36.0 g/dL LAB 07154-1(LOINC) RDW RBC-Rto 18.9 High 11.5-15.0 % LAB 777-3([facility]) Platelet # Bld Auto 146 Low 150-400 k/uL LAB 79583-7([facility]) PMV Bld Auto 11.3 9.0-12.7 fL LAB 771-6([facility]) nRBC # Bld Auto <0.01 <0.01 k/uL Performed By: #### 54706-0 # ### [facility] CLIA [id number] [address] [place] [address] OF [facility] PROGRESS Observed: 10/30/2024 5:49 PM Status: COMPLETED Source: [facility] HNO ID: [id number] Author: KALANI ARROYO MD Service: General Internal Medicine Author Type: Physician Type: Progress Notes Filed: 10/30/2024 17:54 Note Text: DEPARTMENT OF HOSPITAL MEDICINE PROGRESS NOTE SERVICE DATE: 10/30/2024 SERVICE TIME: 5:49 PM Hospital Medicine/Primary Attending: Kalani Arroyo MD NIGHT AND WEEKEND COVERAGE: [facility] COVERAGE: Days: [phone], please page [facility] for patient issues. Nights: [phone], please page Team GIM 1: G/H 8th floor: [address]; Non 8th floor [address] Subjective INTERVAL HPI: Nurse said he was telling them he could not even open his laptop He said that was due to his rotator cuff. He had 5/5 strength in hands so encouraged him to do more to build strength as directed by PT/ OT Had dialysis Sunday 10/29 Denies any new complains Stable Hb. INR 2.3 Plan- - Continue Heparin to Coumadin bridge. Coumadin 7.5 mg tonight, 5mg after and plan to hold Heparin tomorrow, at which point he will be stable for SNF - DC to SNF when INR is therapeutic Current Facility-Administered Medications Medication Dose Route Frequency NaCl 0.9% iv flush bag 20 mL INTRAVENOUS PRN dextrose 15 gram/32 mL 15 g (TRUEPLUS) 15 g ORAL PRN Or glucagon 1 mg injection 1 mg INTRAMUSCULAR PRN Or dextrose 10% iv bolus 12.5 g INTRAVENOUS PRN midodrine 20 mg tab(s) (PROAMATINE) 20 mg ORAL q [address] 40 mg tab(s) (PROTONIX) 40 mg ORAL DAILY acetaminophen 650 mg tab(s) (TYLENOL) 650 mg ORAL q 6 H PRN sevelamer carbonate 2,400 mg tab(s) (RENVELA) 2,400 mg ORAL TID w MEALS melatonin 9 mg tab(s) 9 mg ORAL DAILY (8 PM) calcitriol 1.5 mcg cap(s) (ROCALTROL) 1.5 mcg ORAL -WE- midodrine 20 mg tab(s) (PROAMATINE) 20 mg ORAL PRN DIALYSIS Darbepoetin Osito In Polysorbat 60 mcg injection (ARANESP) 60 mcg SUBCUTANEOUS q MON B Complex-Vitamin C-Folic Acid 1 tablet tab(s) (JOHNSON-VIT) 1 tablet ORAL DAILY cinacalcet 60 mg tab(s) (SENSIPAR) 60 mg ORAL DAILY polyethylene glycol 3350 17 g packet 17 g ORAL BID senna 8.6 mg tab(s) (SENOKOT) 8.6 mg ORAL AT BEDTIME bisacodyl EC 5 mg tab(s) (DULCOLAX) 5 mg ORAL DAILY oxyCODONE IR 5-10 mg tab(s) (ROXICODONE) 5-10 mg ORAL q 4 H PRN heparin iv infusion 25,000 units in NaCl 0.45% 250 mL STANDARD NOMOGRAM 0-3,000 Units/hr INTRAVENOUS CONTINUOUS And heparin RATE CHANGE bolus 1,000-10,000 Units for subtherapeutic PTTAC results 1,000-10,000 Units INTRAVENOUS PRN warfarin order for discharge OTHER PRN sodium zirconium cyclosilicate 10 g oral packet (LOKELMA) 10 g ORAL DAILY HYDROmorphone 0.5 mg injection (DILAUDID) 0.5 mg INTRAVENOUS DAILY PRN ondansetron orally disintegrating 4 mg tab(s) (ZOFRAN ODT) 4 mg ORAL q 6 H PRN prochlorperazine 5 mg injection (COMPAZINE) 5 mg INTRAVENOUS q 4 H PRN Objective PHYSICAL EXAM: BP 101/65 Pulse 68 Temp (Src) 97.5 (Oral) Resp 16 Ht 5' 9.685 (1.77m) Wt 260 lb 2.3 oz (118.0kg) SpO2 100% BMI 37.66 kg/(m2). O2 Therapy: Room Air, Liters: 2.00 AAND O x 4 No distress Right sided TDC present Lungs with decreased breath sounds at bases. 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 DATA: Diagnostic tests reviewed for today's visit: Most recent labs Most recent imaging Recent Labs 10/30/24 0900 PCGLUCOSE 101* Recent Labs 10/30/24 0553 10/29/24 0943 10/28/24 2302 10/28/24 1023 10/28/24 0830 WBC 5.57 4.70 -- -- 5.15 HB 8.8* 8.4* -- -- 8.6* HCT 30.4* 28.4* -- -- 29.5* PLT 145* 143* -- -- 144* INR 2.3* 2.2* -- -- 2.0* APTT 74.5* 75.2* 67.4* < > -- NA 136 141 -- -- 135* K 4.4 4.4 -- -- 4.3 CHLOR 95* 92* -- -- 93* CO2 27 27 -- -- 29 BUN 15 25* -- -- 17 CREAT 5.79* 8.43* -- -- 6.18* GLUC 92 85 -- -- 80 CA 8.8 8.0* -- -- 8.6 P 3.1 4.3 -- -- 3.6 < > = values in this interval not displayed. 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 He also expressed a poor pain control on oxycodone.Patient follows withpain management as outpatient for pain associated with chest and abdominal wounds. He currently takes oxycodone 10 mg every 8 hours.Denied fevers or foul-smelling discharge from both wounds. Receiving wound care at home. 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 - Vascular surgery input appreciated -- no surgical intervention available. - S/P IR venoplasty, placement of Right chest wall TDC and removal of femoral TDC - TDC should not be removed without consulting IR in this patient. Chest and abdomen ulcerations -- ischemic ulcers on biopsy - No overt evidence of infection, observing off abx - Evaluated by dermatology and s/p biopsy, continuing wound care in the meantime - Pain control with prn oxycodone, dilaudid for breakthrough, appreciate pain med input. Atrial fibrillation and severe mitral stenosis s/p mechanical mitral valve replacement with On-x valve (INR goal 2.5-3.5), Maze procedure and RADHA clip on 08/21/2021. Plan- - Continue Heparin to Coumadin bridge. Coumadin 7.5 mg tonight, 5mg after and plan to hold Heparin tomorrow, at which point he will be stable for SNF - DC to SNF when INR is therapeutic ESRD on hemodialysis via RIGHT chest TDC on [facility] Hyperkalemia - Nephrology following and optimizing HD - [facility] + optimize bowel regimen. - Renal diet Anemia of ESRD -Hb at baseline(8.0-8.5) GERD -continue pantoprazole Obesity YEIMY on CPAP Secondary hyperparathyroidism -continue calcitriol, Cinacalcet, sevelamer Exogenous Class 2 Obesity Medication and Non-Pharmacologic VTE Prophylaxis/Anticoagulants Anticoagulant AND Antiplatelet Medications (From admission, onward) Start Dose Route Frequency Last Action Ordered Stop 10/22/24 2230 heparin iv infusion 25,000 units in NaCl 0.45% 250 mL STANDARD NOMOGRAM (Heparin Infusion + Bolus for Subtherapeutic PTTAC) 0-30 mL/hr Placed in And Linked Group 0-3,000 Units/hr INTRAVENOUS CONTINUOUS Rate Verify, 10/30 0648 10/22/24 2221 -- 10/12/24 1111 activity - mobilize patient (nj,ms) VTE Prophylaxis: VTE prophylaxis appropriate Disposition: SNF Plan of care discussed with Provider, RN, Patient I spent 35 minutes of face to face time with patient, with more than 50 % of time counseling and coordination of care. Kalani Arroyo M.D., [facility] Internal Medicine-[facility] Medicine RENAL FUNC 1999 PNL SERPL Collected: 5:53 AM Status: F Source: [facility] Order Comment: Specimen Type : BLOOD SPECIMEN Ordering Facility: [facility] Address: [address] [place] [address] TYPE CODE TESTS RESULT OUT OF RANGE REFERENCE UNITS LAB 1751-7(LOINC) Albumin SerPl-mCnc 3.9 3.9-4.9 g/dL LAB 54006-3(LOINC) Calcium SerPl-mCnc 8.8 8.5-10.2 mg/dL LAB 2777-1(LOINC) Phosphate SerPl-mCnc 3.1 2.7-4.8 mg/dL LAB 2345-7(LOINC) Glucose SerPl-mCnc 92 74-99 mg/dL Result Comment: The [place] Diabetes Association (ADA) provides guidance for cutoff values for fasting glucose and random glucose. The ADA defines fasting as no caloric intake for at least 8 hours. Fasting plasma glucose results between 100 to 125 mg/dL indicate increased risk for diabetes (prediabetes). Fasting plasma glucose results greater than or equal to 126 mg/dL meet the criteria for diagnosis of diabetes. In the absence of unequivocal hyperglycemia, results should be confirmed by repeat testing. In a patient with classic symptoms of hyperglycemia or hyperglycemic crisis, random plasma glucose results greater than or equal to 200 mg/dL meet the criteria for diagnosis of diabetes. Reference: Standards of Medical Care in Diabetes 2016, [place] Diabetes Association. Diabetes Care. 2016.39(Suppl 1). LAB 3094-0(LOINC) BUN SerPl-mCnc 15 9-24 mg/ dL LAB 2160-0(LOINC) Creat SerPl-mCnc 5.79 High 0.73-1.22 mg/dL LAB 2951-2(LOINC) Sodium SerPl-sCnc 136 136-144 mmol/L LAB 2823-3(LOINC) Potassium SerPl-sCnc 4.4 3.7-5.1 mmol/L LAB 2075-0(LOINC) Chloride SerPl-sCnc 95 Low 98-107 mmol/L LAB 2027-9(LOINC) CO2 SerPl-sCnc 27 22-30 mmo l/L LAB 35150-8(LOINC) Anion Gap SerPl-sCnc 14 8-15 mmol/L LAB 24307-5(LOINC) Creatinine + eGFR Pnl SerPlBld 12 Low >=60 mL/min/1 .73m??? Result Comment: Estimated Gl omerular Filtration Rate (eGFR) is calculated using the 2020 CKD-EPI creatinine equation. This equation utilizes serum creatinine, sex, and age as parameters. The creatinine assay has traceable calibration to isotope dilution-mass spectrometry. Refer to KDIGO guidelines for clinical interpretation. In patients with unstable renal function, e.g. those with acute kidney injury, the eGFR may not accurately reflect actual GFR. Performed By: #### 52294-9 # ### [facility] CLIA [id number] [address] [place] [address] [place] CBC PNL BLD AUTO Collected: 5 5:53 AM Status: F Source: [facility] Order Comment: Specimen Type : BLOOD SPECIMEN Ordering Facility: [facility] Address: [address] [place] [address] TYPE CODE TESTS RESULT OUT OF RANGE REFERENCE UNITS LAB 6690-2(LOINC) WBC # Bld Auto 5.57 3.70-11.00 k/uL LAB 789-8(LOINC) RBC # Bld Auto 3.16 Low 4.20-6.00 m/uL LAB 718-7(LOINC) Hgb Bld-mCnc 8.8 Low 13.0-17.0 g/dL LAB 4544-3(LOINC) Hct VFr Bld Auto 30.4 Low 39.0-51.0 % LAB 787-2(LOINC) MCV RBC Auto 96.2 80.0-100.0 fL LAB 785-6(LOINC) MCH RBC Qn Auto 27.8 26.0-34.0 pg LAB 786-4(LOINC) MCHC RBC Auto-mCnc 28.9 Low 30.5-36.0 g/dL LAB 36029-6(LOINC) RDW RBC-Rto 18.7 High 11.5-15.0 % LAB 777-3(LOINC) Platelet # Bld Auto 145 Low 150-400 k/uL LAB 35870-9(LOINC) PMV Bld Auto 11.3 9.0-12.7 fL LAB 771-6(LOINC) nRBC # Bld Auto <0.01 <0.01 k/uL Performed By: #### 68090-0 # ### [facility] CLIA [id number] [address] [place] [address] PT PNL PPP Collected: 10/30/2024 5:53 AM Status: F Source: [facility] Order Comment: Specimen Type : BLOOD SPECIMEN Ordering Facility: [facility] Address: [address] [place] [address] TYPE CODE TESTS RESULT OUT OF RANGE REFERENCE UNITS LAB 5902-2(INC) Prothrombin time 23.9 High 9.7-13.0 sec LAB 6301-6(INC) INR PPP 2.3 High 0.9-1.3 Result Comment: Vitamin K An tagonist (VKA) Therapeutic Range: INR 2 to 3 (Target INR of 2.5) Note: For patients treated with VKA drugs, such as warfarin, the [place] [employer] Physicians 2012 Guideline recommends a therapeutic INR range of 2 to 3 (target INR of 2.5). This recommendation includes high-risk patients with antiphospholipid syndrome with previous arterial or venous thromboembolism, current-generation mechanical or bioprosthetic aortic heart valve replacement. Note: Patients with mechanical aortic valve replacement and additional risk factors for thromboembolic events (atrial fibrillation, previous thromboembolism, LV dysfunction, hypercoagulable conditions) or an older generation mechanical AVR (i.e., ball in-Cage) or any mechanical MVR should have a INR therapeutic range of 2.5 to 3.5 (target INR of 3). Ranjit GH, et al. Chest 2012, 141:7S-47S Kevin RA et al. JACC 2017, 70: 252-289 Performed By: #### PTTAC, 34 528-0 #### [facility] CLIA [id number] [address] [place] [address] OF [place] PTT, ANTICOAGULANT THERAPY Collected: 0 10/30/2024 5:53 AM Status: F Source: [facility] Order Comment: Specimen Type : BLOOD SPECIMEN Ordering Facility: [facility] Address: [address] [place] [address] TYPE CODE TESTS RESULT OUT OF RANGE REFERENCE UNITS LAB 79962-6(LOINC) aPTT PPP 74.5 High 23.0-32.4 sec Performed By: #### PTTAC, 34 528-0 #### [facility] CLIA [id number] [address] [place] [address] OF [place] THERAPY NT Observed: 10/29/2024 4:41 PM Status: COMPLETED Source: [facility] HNO ID: [id number] Author: ARTIE CHI PTA Service: Physical Therapy Author Type: Bicycle Subassembler Type: Therapy (PT/OT/Speech/Resp) Filed: 10/29/2024 16:42 Note Text: Attestation signed by Grayson Cross, PT at 10/29/2024 5:34 PM I reviewed and agree with the documentation corresponding to this therapy visit. SIGNATURE: Grayson Cross, PT DATE: October 29, 2024 TIME: 5:34 PM Physical Therapy Treatment Summary SERVICE DATE: 10/29/2024 SERVICE TIME: 1609 to 1635 ROOM: [place] [address] (Q6 - DIALYSIS) PT 6 Clicks Score: 17 DISCHARGE RECOMMENDATIONS Subacute/SNF Recommended Discharge Disposition Comments: . Recommended Discharge Disposition Due to: Balance deficits, Functional status decline Recommended Discharge Equipment: To Be Determined ASSESSMENT Pt continues to be motivated to ambulate, reports fatigue as he had HD earlier. Response to Therapy Interventions: Good Participation in Activities, Improved Tolerance for Activity PRECAUTIONS Fall Risk CURRENT HOSPITAL COURSE presenting with uncontrolled pain from chest and abdominal wounds. 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 IND ADLs although he reports that bathing and dressing has been painful and time-consuming. Has been sleeping in recliner 2/2 to pain. Endorses one fall ~1 week ago from LOB. Drives. SUBJECTIVE THERAPY DIAGNOSIS Reduced mobility-other, Muscle Weakness (generalized), Abnormalities of gait and mobility-other, Unsteadiness on feet TREATMENT INTERVENTIONS Gait Training (03172), Therapeutic Activity (13708) Timed Code Treatment (minutes): 26 Skilled Treatment Time (minutes): 26 TRAINING AND EDUCATION PROVIDED Assistive Device Use, Gait Pattern, Reduction of Deviations, Role of Physical Therapy, Transfers THERAPEUTIC SKILLS USED Cuing Visual, Cuing Verbal, Cuing Tactile, Cues for Sequencing/Proper Technique for Activity, Activity Dosing FUNCTIONAL STATUS Bed Mobility Rolling: Stand By Assistance Supine To Sit: Contact Guard Assistance, Additional Information Scooting: Stand By Assistance Transfers Sit To Stand: Contact Guard Assistance Stand To Sit: Contact Guard Assistance Bed to Chair Contact Guard Assistance Bed To Chair Transfer Type: Stepping Bed To Chair Transfer Equipment: (iv pole) Gait Contact Guard Assistance Gait Device: Wheeled Walker Gait Distance (feet): 18 feet X 2 trials Stairs (unable to safely attempt) GOALS Patient will demonstrate progress to optimize functional mobility, maximize activity tolerance and endurance to maximize function upon discharge. Rehab Potential: Good Progress Toward Goals: Progressing as expected PLAN PT Frequency: 4 Times Per Week (2) Treatment Interventions: Education, Energy Conservation Training, Functional Mobility Training, Strengthening, Balance Training, Neuromuscular Re-education Plan for Next Visit: Gait Training, Standing Balance, Stair Training SIGNATURE: Artie Chi PTA PATIENT NAME: Elia Weston DATE: October 29, 2024 TIME: 4:41 PM CASE MANAGEM Observed: 10/29/2024 3:04 PM Status: COMPLETED Source: [facility] HNO ID: [id number] Author: CHRSITIANA SHAH ? Service: Care Management Author Type: ? Type: Care Mgt Progress Note Filed: 10/29/2024 15:05 Note Text: [facility] PRECERT NOTE [employer] HMO approved Long-Term Facility for LUIS MANUEL RUBOI. Precert approved through 11/02. For any additional questions regarding approvals, transport or care management needs, please contact the CM assigned to this patient in the Treatment Team. SIGNATURE: Christiana Shah DATE: October 29, 2024 TIME: 3:04 PM PROGRESS Observed: 10/29/2024 2:29 PM Status: COMPLETED Source: [facility] HNO ID: [id number] Author: LUIS CUI MD Service: General Internal Medicine Author Type: Physician Type: Progress Notes Filed: 10/29/2024 14:32 Note Text: DEPARTMENT OF HOSPITAL MEDICINE PROGRESS NOTE SERVICE DATE: 10/29/2024 SERVICE TIME: 2:30 PM Hospital Medicine/Primary Attending: Luis Cui MD NIGHT AND WEEKEND COVERAGE: [facility] COVERAGE: Days: [phone], please page Luis Cui for patient issues. Nights: [phone], please page Team GIM 1: G/H 8th floor: [address]; Non 8th floor [address] Subjective INTERVAL HPI: No acute events overnight HDS, RA Seen in dialysis. Doing well. Denies any complaints. Denies any new complains Stable Hb. INR 2.2 Plan- - Continue Heparin to Coumadin bridge. Coumadin 7.5 mg tonight - DC to SNF when INR is therapeutic Current Facility-Administered Medications Medication Dose Route Frequency NaCl 0.9% iv flush bag 20 mL INTRAVENOUS PRN dextrose 15 gram/32 mL 15 g (TRUEPLUS) 15 g ORAL PRN Or glucagon 1 mg injection 1 mg INTRAMUSCULAR PRN Or dextrose 10% iv bolus 12.5 g INTRAVENOUS PRN midodrine 20 mg tab(s) (PROAMATINE) 20 mg ORAL q [address] 40 mg tab(s) (PROTONIX) 40 mg ORAL DAILY acetaminophen 650 mg tab(s) (TYLENOL) 650 mg ORAL q 6 H PRN sevelamer carbonate 2,400 mg tab(s) (RENVELA) 2,400 mg ORAL TID w MEALS melatonin 9 mg tab(s) 9 mg ORAL DAILY (8 PM) calcitriol 1.5 mcg cap(s) (ROCALTROL) 1.5 mcg ORAL MO-WE-FR midodrine 20 mg tab(s) (PROAMATINE) 20 mg ORAL PRN DIALYSIS Darbepoetin Osito In Polysorbat 60 mcg injection (ARANESP) 60 mcg SUBCUTANEOUS q MON B Complex-Vitamin C-Folic Acid 1 tablet tab(s) (JOHNSON-VIT) 1 tablet ORAL DAILY cinacalcet 60 mg tab(s) (SENSIPAR) 60 mg ORAL DAILY polyethylene glycol 3350 17 g packet 17 g ORAL BID senna 8.6 mg tab(s) (SENOKOT) 8.6 mg ORAL AT BEDTIME bisacodyl EC 5 mg tab(s) (DULCOLAX) 5 mg ORAL DAILY oxyCODONE IR 5-10 mg tab(s) (ROXICODONE) 5-10 mg ORAL q 4 H PRN heparin iv infusion 25,000 units in NaCl 0.45% 250 mL STANDARD NOMOGRAM 0-3,000 Units/hr INTRAVENOUS CONTINUOUS And heparin RATE CHANGE bolus 1,000-10,000 Units for subtherapeutic PTTAC results 1,000-10,000 Units INTRAVENOUS PRN warfarin order for discharge OTHER PRN sodium zirconium cyclosilicate 10 g oral packet (LOKELMA) 10 g ORAL DAILY HYDROmorphone 0.5 mg injection (DILAUDID) 0.5 mg INTRAVENOUS DAILY PRN ondansetron orally disintegrating 4 mg tab(s) (ZOFRAN ODT) 4 mg ORAL q 6 H PRN prochlorperazine 5 mg injection (COMPAZINE) 5 mg INTRAVENOUS q 4 H PRN warfarin 7.5 mg tab(s) (COUMADIN) 7.5 mg ORAL ONCE - WARFARIN Objective PHYSICAL EXAM: BP 101/50 Pulse 76 Temp (Src) 98.1 (Oral) Resp 14 Ht 5' 9.685 (1.77m) Wt 249 lb 1.9 oz (113.0kg) SpO2 97% BMI 36.07 kg/(m2). O2 Therapy: Room Air Physical Exam Performed AO 3 No distress Right sided TDC present Lungs with decreased breath sounds at bases. Normal S1/S2 Chest wall varices + Soft, non tender abdomen 1+ pedal edema Lines, Drains, and Airways Line Duration Peripheral 10/12/24 0530 [facility] Short Right Forearm 20 Gauge 17 days Dialysis / Apheresis Double Lumen 10/22/24 1932 [facility] Tunneled Right Subclavian 6 days Patient does not currently have any lines, drains or airways. 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 He also expressed a poor pain control on oxycodone.Patient follows withpain management as outpatient for pain associated with chest and abdominal wounds. He currently takes oxycodone 10 mg every 8 hours.Denied fevers or foul-smelling discharge from both wounds. Receiving wound care at home. 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 Personal history of DVT (deep vein thrombosis) PAF (paroxysmal atrial fibrillation) ([facility]) History of stroke Hypotension, chronic Anemia due to stage 5 chronic kidney disease, not on chronic dialysis (HCC) (HCC) Status post Maze operation for atrial fibrillation Skin ulcer, limited to breakdown of skin (HCC) SVC syndrome Generalized weakness Impaired functional mobility, balance, gait, and endurance Secondary hyperparathyroidism, renal (HCC) Ischemic ulcer with fat layer exposed (HCC) SVC syndrome-multiple right and left IJ catheters placed in past resulting in stenosis of central veins. - Vascular surgery input appreciated -- no surgical intervention available. - S/P IR venoplasty, placement of Right chest wall TDC and removal of femoral TDC - TDC should not be removed without consulting IR in this patient. Chest and abdomen ulcerations -- ischemic ulcers on biopsy - No overt evidence of infection, observing off abx - Evaluated by dermatology and s/p biopsy, continuing wound care in the meantime - Pain control with prn oxycodone, dilaudid for breakthrough, appreciate pain med input. Atrial fibrillation and severe mitral stenosis s/p mechanical mitral valve replacement with On-x valve (INR goal 2.5-3.5), Maze procedure and RADHA clip on 08/21/2021. - Cont heparin gtt to coumadin bridge ESRD on hemodialysis via RIGHT chest TDC on MWF Hyperkalemia - Nephrology following and optimizing HD - Lokelma + optimize bowel regimen. - Renal diet Anemia of ESRD -Hb at baseline(8.0-8.5) GERD -continue pantoprazole Obesity YEIMY on CPAP Secondary hyperparathyroidism -continue calcitriol, Cinacalcet, sevelamer Exogenous Class 2 Obesity Medication and Non-Pharmacologic VTE Prophylaxis/Anticoagulants Anticoagulant AND Antiplatelet Medications (From admission, onward) Start Dose Route Frequency Last Action Ordered Stop 10/29/24 1700 warfarin 7.5 mg tab(s) (COUMADIN) 7.5 mg ORAL ONCE - WARFARIN Ordered 10/29/24 1243 10/30/24 0459 10/22/24 2230 heparin iv infusion 25,000 units in NaCl 0.45% 250 mL STANDARD NOMOGRAM (Heparin Infusion + Bolus for Subtherapeutic PTTAC) 0-30 mL/hr Placed in And Linked Group 0-3,000 Units/hr INTRAVENOUS CONTINUOUS Rate Verify, 10/29 1000 10/22/24 2221 -- 10/12/24 1111 activity - mobilize patient (nj,oh) VTE Prophylaxis: VTE prophylaxis appropriate Disposition: SNF Plan of care discussed with Provider, RN, Patient Plan communicated to: Patient prefers to communicate with family. Luis Cui MD Associate Staff [facility] [address] [place] [address] Pager [phone] CASE MANAGEM Observed: 10/29/2024 10:54 AM Status: COMPLETED Source: [facility] HNO ID: [id number] Author: KIN CASAS RN Service: Care Management Author Type: Registered Nurse Type: Care Mgt Progress Note Filed: 10/29/2024 15:43 Note Text: CARE MANAGEMENT PROGRESS NOTE SERVICE DATE: 10/29/2024 SERVICE TIME: 10:54 AM LOS: 17 days Post-Acute Discharge Planning Patient Goal(s): Be able to go home, General wellness, Increase strength [place] Explained: [place] Given: Yes Level of Care Discussed: Long-Term Facility Discharge Planning Participant(s): Patient Patient/Family Comments: Anticipated # of Days Until Discharge: 4 Transport at Discharge: Transportation Arrangements: To Be Determined Needs Prior to Discharge: Needs Prior to Discharge: Discharge Transportation, Precertification Post-Acute Discharge Plan: Precert started for [facility]. His family will provide transport to outpatient dialysis, as they do not have onsite dialysis chairs available. Pt will need 7000 and DC transport. ADDENDUM 3:41 PM Precert approved through 11/02. However, pt does not have outpatient dialysis set up. Spoke with dialysis coordinator, it will not be set up till early next week. NO WEEKEND DC ANTICIPATED Please contact weekend case investigator, listed in the Treatment Team, for any immediate discharge planning needs. SIGNATURE: Kin Casas RN PATIENT NAME: Elia Weston DATE: October 29, 2024 TIME: 10:54 AM CONSULT PROG Observed: 10/29/2024 10:44 AM Status: COMPLETED Source: [facility] HNO ID: [id number] Author: CAMILO NORTON PA-C Service: Nephrology Author Type: Physician Teacher Tutor Type: Consult Progress Note Filed: 10/29/2024 10:46 Note Text: Department of Kidney Medicine [facility] [place] [facility] NEPHROLOGY CONSULT SERVICE PROGRESS NOTE INTERVAL HISTORY: - seen on IHD tolerating well, orders in [place]ON[facility] reviewed - working on dialysis disposition to align with SNF placement heparin, Last Rate: 1,800 Units/hr (10/28/242049) MEDICATIONS: Current Facility-Administered Medications Medication Dose Route Frequency NaCl 0.9% iv flush bag 20 mL INTRAVENOUS PRN dextrose 15 gram/32 mL 15 g (TRUEPLUS) 15 g ORAL PRN Or glucagon 1 mg injection 1 mg INTRAMUSCULAR PRN Or dextrose 10% iv bolus 12.5 g INTRAVENOUS PRN midodrine 20 mg tab(s) (PROAMATINE) 20 mg ORAL q [address] 40 mg tab(s) (PROTONIX) 40 mg ORAL DAILY acetaminophen 650 mg tab(s) (TYLENOL) 650 mg ORAL q 6 H PRN sevelamer carbonate 2,400 mg tab(s) (RENVELA) 2,400 mg ORAL TID w MEALS melatonin 9 mg tab(s) 9 mg ORAL DAILY (8 PM) calcitriol 1.5 mcg cap(s) (ROCALTROL) 1.5 mcg ORAL MO-WE- midodrine 20 mg tab(s) (PROAMATINE) 20 mg ORAL PRN DIALYSIS Darbepoetin [place] In Polysorbat 60 mcg injection (ARANESP) 60 mcg SUBCUTANEOUS q MON B Complex-Vitamin C-Folic Acid 1 tablet tab(s) (JOHNSON-VIT) 1 tablet ORAL DAILY cinacalcet 60 mg tab(s) (SENSIPAR) 60 mg ORAL DAILY polyethylene glycol 3350 17 g packet 17 g ORAL BID senna 8.6 mg tab(s) (SENOKOT) 8.6 mg ORAL AT BEDTIME bisacodyl EC 5 mg tab(s) (DULCOLAX) 5 mg ORAL DAILY oxyCODONE IR 5-10 mg tab(s) (ROXICODONE) 5-10 mg ORAL q 4 H PRN heparin iv infusion 25,000 units in NaCl 0.45% 250 mL STANDARD NOMOGRAM 0-3,000 Units/hr INTRAVENOUS CONTINUOUS And heparin RATE CHANGE bolus 1,000-10,000 Units for subtherapeutic PTTAC results 1,000-10,000 Units INTRAVENOUS PRN warfarin order for discharge OTHER PRN sodium zirconium cyclosilicate 10 g oral packet (LOKELMA) 10 g ORAL DAILY HYDROmorphone 0.5 mg injection (DILAUDID) 0.5 mg INTRAVENOUS DAILY PRN ondansetron orally disintegrating 4 mg tab(s) (ZOFRAN ODT) 4 mg ORAL q 6 H PRN prochlorperazine 5 mg injection (COMPAZINE) 5 mg INTRAVENOUS q 4 H PRN ALLERGIES: Gabapentin and Trazodone PHYSICAL EXAM: BP 101/50 Pulse 76 Temp 36.7 ?C (98.1 ?F) (Oral) Resp 14 Ht 177 cm (5' 9.69) Wt 113 kg (249 lb 1.9 oz) SpO2 97% BMI 36.07 kg/m? No intake or output data in the 24 hours ending 10/29/24 1044 GENERAL: awake, alert, in no acute distress, cooperative, lying in bed SKIN: Skin color, texture, turgor normal. No rashes or lesions. HEENT: normocephalic, , moist oral mucosa NECK: no JVD, masses or bruits LUNGS: Good diaphragmatic excursion and normal respiratory effort. CARDIAC: RRR ABDOMEN: soft, EXTREMITIES:generalized edema NEURO: AOx3, normal speech, muscle strength grossly intact ACCESS: RIJ TDC accessed with normal findinfs Lines, Drains, and Airways Line Duration Peripheral 10/12/24 0530 [facility] Short Right Forearm 20 Gauge 17 days Dialysis / Apheresis Double Lumen 10/22/24 1932 [facility] Tunneled Right Subclavian 6 days Labs: Recent Labs 10/29/24 0943 10/28/24 2302 10/28/24 1715 10/28/24 1023 10/28/24 0830 10/27/24 0422 WBC 4.70 -- -- -- 5.15 4.65 HB 8.4* -- -- -- 8.6* 8.1* HCT 28.4* -- -- -- 29.5* 27.4* PLT 143* -- -- -- 144* 147* INR 2.2* -- -- -- 2.0* 1.7* APTT 75.2* 67.4* 70.6* < > -- 73.8* NA -- -- -- -- 135* 136 K -- -- -- -- 4.3 5.0 CHLOR -- -- -- -- 93* 95* CO2 -- -- -- -- 29 27 ANION -- -- -- -- 13 14 BUN -- -- -- -- 17 29* CREAT -- -- -- -- 6.18* 9.42* GLUC -- -- -- -- 80 89 CA -- -- -- -- 8.6 8.0* P -- -- -- -- 3.6 4.3 < > = values in this interval not displayed. Recent Labs 10/28/24 0830 10/27/24 0422 ALB 3.8* 3.7* ASSESSMENT: 44 year old male with Pmhx of Afib, hx MVR on coumadin, ESRD on HD MWF, hyperparathyroidism, HTN, hx of SVC syndrome, HLD, obesity and YEIMY presenting with complaint of painful chronic chest wound and missed dialysis. Of note, he was recently admitted for a dislodged catheter and had femoral TDC 50cm replacement 10/07/24. Course has been complicated by SVC syndrome workup, with a history of complication of multiple bilateral IJ TDC placement/associated thrombosis also leading to chest wall and abdominal varices. Vascular surgery was consulted. Nephrology consulted for ESRD management 1. ESRD Hx First HD: 2005 Unit: [facility] Configuration Release Manager: Dr. Melendez Days: EDW: 114.1 kg Time: 4.5 hrs Access: RIJ TDC placed 10/22/24 this admission SHPT: rocaltrol 1.5mcg TIW, sensipar 60mg daily, PTH 1500 Heparin: 10,000u bolus 2. Electrolytes: stable 3. Volume status: hypervolemia improved 4. Acid-base: stable 5. Ca/P/PTH,Bone mineral disease: - Sevelamer with meals. Calcium ok on rocaltrol and sensipar 6. Anemia of CKD below goal on ANABELLA, high ferritin PLAN: - HD today 4.25hr 3k and UF 3L - next session friday () - continue aranesp, sensipar, calcitriol - lokelma 10mg once daily Standard ESRD recommendations and precautions: - Strict IANDOs and Daily weight - Consider a Potassium restricted (2g/day) Diet for HD patients - Fluid restriction < 1 L - Start renal multivitamin to replace water-soluble vitamins lost during dialysis - Avoid Lovenox, Morphine, K-containing IVF, Mg- or Phos- containing enemas Consent for DRYWALL SANDER: ESRD Camilo Norton PA-C Department of Kidney Medicine [facility] October 29, 2024 10:44 AM PAGER # [phone] Disclosures: Parts of the current progress note may have been copied from a previous note. FOR AFTER HOUR CONCERNS BETWEEN 5PM - 7AM CONTACT ON-CALL NEPHROLOGY FELLOW 20507 CBC PNL BLD AUTO Collected: 9:43 AM Status: F Source: [facility] Order Comment: Specimen Type : BLOOD SPECIMEN Ordering Facility: [facility] Address: [address] [place] [address] TYPE CODE TESTS RESULT OUT OF RANGE REFERENCE UNITS LAB 6690-2(LOINC) WBC # Bld Auto 4.70 3.70-11.00 k/uL LAB 789-8(LOINC) RBC # Bld Auto 2.96 Low 4.20-6.00 m/uL LAB 718-7(LOINC) Hgb Bld-mCnc 8.4 Low 13.0-17.0 g/dL LAB 4544-3(LOINC) Hct VFr Bld Auto 28.4 Low 39.0-51.0 % LAB 787-2(LOINC) MCV RBC Auto 95.9 80.0-100.0 fL LAB 785-6(LOINC) MCH RBC Qn Auto 28.4 26.0-34.0 pg LAB 786-4(LOINC) MCHC RBC Auto-mCnc 29.6 Low 30.5-36.0 g/dL LAB 09114-9(LOINC) RDW RBC-Rto 18.7 High 11.5-15.0 % LAB 777-3(LOINC) Platelet # Bld Auto 143 Low 150-400 k/uL LAB 95763-5(LOINC) PMV Bld Auto 11.6 9.0-12.7 fL LAB 771-6(LOINC) nRBC # Bld Auto <0.01 <0.01 k/uL Performed By: #### 48607-6 # ### [facility] CLIA [id number] [address] [facility] [place] [address] [place] RENAL FUNC 2000 PNL SERPL Collected: 9:43 AM Status: F Source: [facility] Order Comment: Specimen Type : BLOOD SPECIMEN Ordering Facility: [facility] Address: [address] [place] [address] TYPE CODE TESTS RESULT OUT OF RANGE REFERENCE UNITS LAB 1751-7(LOINC) Albumin SerPl-mCnc 3.9 3.9-4.9 g/dL LAB 54174-7(LOINC) Calcium SerPl-mCnc 8.0 Low 8.5-10.2 mg/dL LAB 2777-1(LOINC) Phosphate SerPl-mCnc 4.3 2.7-4.8 mg/dL LAB 2345-7(LOINC) Glucose SerPl-mCnc 85 74-99 mg/dL Result Comment: The [place] Diabetes Association (ADA) provides guidance for cutoff values for fasting glucose and random glucose. The ADA defines fasting as no caloric intake for at least 8 hours. Fasting plasma glucose results between 100 to 125 mg/dL indicate increased risk for diabetes (prediabetes). Fasting plasma glucose results greater than or equal to 126 mg/dL meet the criteria for diagnosis of diabetes. In the absence of unequivocal hyperglycemia, results should be confirmed by repeat testing. In a patient with classic symptoms of hyperglycemia or hyperglycemic crisis, random plasma glucose results greater than or equal to 200 mg/dL meet the criteria for diagnosis of diabetes. Reference: Standards of Medical Care in Diabetes 2016, [place] Diabetes Association. Diabetes Care. 2016.39(Suppl 1). LAB 3094-0(LOINC) BUN SerPl-mCnc 25 High 9-24 mg/ dL LAB 2160-0(LOINC) Creat SerPl-mCnc 8.43 High 0.73-1.22 mg/dL LAB 2951-2(LOINC) Sodium SerPl-sCnc 141 136-144 mmol/L LAB 2823-3(LOINC) Potassium SerPl-sCnc 4.4 3.7-5.1 mmol/L LAB 2075-0(LOINC) Chloride SerPl-sCnc 92 Low 98-107 mmol/L LAB 2028-05(LOINC) CO2 SerPl-sCnc 27 22-30 mmo l/L LAB 50851-0(LOINC) Anion Gap SerPl-sCnc 22 High 8-15 mmol/L LAB 88345-0(LOINC) Creatinine + eGFR Pnl SerPlBld 7 Low >=60 mL/min/1 .73m??? Result Comment: Estimated Gl omerular Filtration Rate (eGFR) is calculated using the 2020 CKD-EPI creatinine equation. This equation utilizes serum creatinine, sex, and age as parameters. The creatinine assay has traceable calibration to isotope dilution-mass spectrometry. Refer to KDIGO guidelines for clinical interpretation. In patients with unstable renal function, e.g. those with acute kidney injury, the eGFR may not accurately reflect actual GFR. Performed By: #### 47976-7 # ### [facility] CLIA [id number] [address] [place] [address] PT PNL PPP Collected: 10/29/2024 9:43 AM Status: F Source: [facility] Order Comment: Specimen Type : BLOOD SPECIMEN Ordering Facility: [facility] Address: [address] [place] [address] TYPE CODE TESTS RESULT OUT OF RANGE REFERENCE UNITS LAB 5902-2(LOINC) Prothrombin time 22.7 High 9.7-13.0 sec LAB 6301-6(LOINC) INR PPP 2.2 High 0.9-1.3 Result Comment: Vitamin K An tagonist (VKA) Therapeutic Range: INR 2 to 3 (Target INR of 2.5) Note: For patients treated with VKA drugs, such as warfarin, the [place] College [employer] Chest Physicians 2012 Guideline recommends a therapeutic INR range of 2 to 3 (target INR of 2.5). This recommendation includes high-risk patients with antiphospholipid syndrome with previous arterial or venous thromboembolism, current-generation mechanical or bioprosthetic aortic heart valve replacement. Note: Patients with mechanical aortic valve replacement and additional risk factors for thromboembolic events (atrial fibrillation, previous thromboembolism, LV dysfunction, hypercoagulable conditions) or an older generation mechanical AVR (i.e., ball in-Cage) or any mechanical MVR should have a INR therapeutic range of 2.5 to 3.5 (target INR of 3). Ranjit GH, et al. Chest 2012, 141:7S-47S Kevin RA, et al. [facility] 2017, 70: 252-289 Performed By: #### 21460-7, PTTAC #### [facility] CLIA [id number] [address] [place], [place] [id number] [place] PTT, ANTICOAGULANT THERAPY Collected: 0 10/29/2024 9:43 AM Status: F Source: [facility] Order Comment: Specimen Type : BLOOD SPECIMEN Ordering Facility: [facility] Address: [address] [place] [address] TYPE CODE TESTS RESULT OUT OF RANGE REFERENCE UNITS LAB 82981-2(LOINC) aPTT PPP 75.2 High 23.0-32.4 sec Performed By: #### 32155-9, PTTAC #### [facility] CLIA [id number] [address] [place], [place] [id number] [place] PROGRESS Observed: 10/29/2024 8:06 AM Status: COMPLETED Source: [facility] HNO ID: [id number] Author: ?, ?, ? Service: Nephrology Author Type: ? Type: Progress Notes Filed: 10/29/2024 08:08 Note Text: DIALYSIS PLACEMENT NOTE Per CM, plan for pt to d/c to [facility] but they do not have any dialysis chairs available onsite. Pt's family to transport to dialysis. [facility] AND sent dialysis records. Please allow 48 hours minimum for medical AND financial clearance [facility]. Facility: [facility] ([address] [place] [address]) Signature: Bj Rico Patient Name: Elia Weston Date: October 29, 2024 Time: 8:06 AM APTT PPP Collected: 11:02 PM Status: F Source: [facility] Order Comment: Specimen Type : BLOOD SPECIMEN Ordering Facility: [facility] Address: [address] [place] [address] TYPE CODE TESTS RESULT OUT OF RANGE REFERENCE UNITS LAB 03682-2(LOINC) aPTT PPP 67.4 High 23.0-32.4 sec Performed By: #### 53870-7 # ### [facility] CLIA [id number] [address] [place] [address] [place] PTT, ANTICOAGULANT THERAPY Collected: 0 10/28/2024 5:15 PM Status: F Source: [facility] Order Comment: Specimen Type : BLOOD SPECIMEN Ordering Facility: [facility] Address: [address] [place] [address] TYPE CODE TESTS RESULT OUT OF RANGE REFERENCE UNITS LAB 46940-2(LOINC) aPTT PPP 70.6 High 23.0-32.4 sec Performed By: #### PTTAC ### # [facility] CLIA [id number] [address] [place] [address] [place] THERAPY NT Observed: 10/28/2024 3:05 PM Status: COMPLETED Source: [facility] HNO ID: [id number] Author: ARTIE CHI PTA Service: Physical Therapy Author Type: Bicycle Subassembler Type: Therapy (PT/OT/Speech/Resp) Filed: 10/28/2024 15:06 Note Text: Attestation signed by Grayson Cross PT at 10/29/2024 8:18 AM I reviewed and agree with the documentation corresponding to this therapy visit. SIGNATURE: Grayson Cross, PT DATE: October 29, 2024 TIME: 8:18 AM Physical Therapy Treatment Summary SERVICE DATE: 10/28/2024 SERVICE TIME: 1429 to 1452 ROOM: [place] [address] PT 6 Clicks Score: 17 DISCHARGE RECOMMENDATIONS Subacute/SNF Recommended Discharge Disposition Comments: . Recommended Discharge Disposition Due to: Balance deficits, Functional status decline Recommended Discharge Equipment: To Be Determined ASSESSMENT Pt was able to ambulate, needed one seated rest period. Response to Therapy Interventions: Good Participation in Activities, Improved Tolerance for Activity PRECAUTIONS Fall Risk CURRENT HOSPITAL COURSE presenting with uncontrolled pain from chest and abdominal wounds. 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 IND ADLs although he reports that bathing and dressing has been painful and time-consuming. Has been sleeping in recliner 2/2 to pain. Endorses one fall ~1 week ago from [facility]. SUBJECTIVE THERAPY DIAGNOSIS Reduced mobility-other, Muscle Weakness (generalized), Abnormalities of gait and mobility-other, Unsteadiness on feet TREATMENT INTERVENTIONS Gait Training (18224), Therapeutic Activity (16143) Timed Code Treatment (minutes): 23 Skilled Treatment Time (minutes): 23 TRAINING AND EDUCATION PROVIDED Assistive Device Use, Benefits of In-Hospital Mobility, Exercise Program, Expected Functional Level, Falls Prevention, Gait Pattern, Reduction of Deviations, Role of Physical Therapy, Transfers THERAPEUTIC SKILLS USED Cuing Visual, Cuing Verbal, Cuing Tactile, Cues for Sequencing/Proper Technique for Activity, Activity Dosing FUNCTIONAL STATUS Bed Mobility Rolling: Stand By Assistance Supine To Sit: Contact Guard Assistance, Additional Information Scooting: Stand By Assistance Transfers Sit To Stand: Contact Guard Assistance Stand To Sit: Contact Guard Assistance Bed to Chair Contact Guard Assistance Bed To Chair Transfer Type: Stepping Bed To Chair Transfer Equipment: (iv pole) Gait Contact Guard Assistance Gait Device: Wheeled Walker Gait Distance (feet): 18 feet X 2 trials Stairs (unable to safely attempt) GOALS Patient will demonstrate progress to optimize functional mobility, maximize activity tolerance and endurance to maximize function upon discharge. Rehab Potential: Good Progress Toward Goals: Progressing as expected PLAN PT Frequency: 4 Times Per Week (2) Treatment Interventions: Education, Energy Conservation Training, Functional Mobility Training, Strengthening, Balance Training, Neuromuscular Re-education Plan for Next Visit: Gait Training, Standing Balance, Stair Training SIGNATURE: Artie Chi PTA PATIENT NAME: Elia Weston DATE: October 28, 2024 TIME: 3:05 PM CASE MANAGEM Observed: 10/28/2024 3:00 PM Status: COMPLETED Source: [facility] ID: [id number] Author: KIN CASAS RN Service: Care Management Author Type: Registered Nurse Type: Care Mgt Progress Note Filed: 10/28/2024 16:07 Note Text: CARE MANAGEMENT PROGRESS NOTE SERVICE DATE: 10/28/2024 SERVICE TIME: 3:00 PM LOS: 16 days Post-Acute Discharge Planning Patient Goal(s): General wellness, Increase strength, Be able to go home [place] Choice Explained: [place] of Choice Given: Yes Level of Care Discussed: Long-Term Facility Discharge Planning Participant(s): Patient Patient/Family Comments: Anticipated # of Days Until Discharge: 4 Transport at Discharge: Transportation Arrangements: To Be Determined Needs Prior to Discharge: Needs Prior to Discharge: Accepting Facility, Precertification, Discharge Transportation Post-Acute Discharge Plan: Pt's [facility] is [facility] [place]. He has family in the area that will be able to come visit him frequently. They currently do not have any dialysis on site available, but pt asked if they would be able to accept him if he can coordinate his own dialysis outpatient. Again, he states he has family assistance in the area, and would need set up with outpatient center in the area. He was active at [facility] in [place] prior to admission. Waiting for reply from [facility], dialysis coordinator contacted. Pt has alternate SNFs accepting if his [facility] is unable to accept. ADDENDUM 4:05 PM [facility] can accept pt provided family can also provide his Sensipar, Renvela, and Velphoro from an outpatient pharmacy. They would also prefer he receive dialysis at [facility]. SIGNATURE: Kin Casas RN PATIENT NAME: Elia Weston DATE: October 28, 2024 TIME: 3:00 PM PROGRESS Observed: 10/28/2024 2:22 PM Status: [facility]PLE[id number] Author: LUIS CUI MD Service: General Internal Medicine Author Type: Physician Type: Progress Notes Filed: 10/28/2024 14:29 Note Text: DEPARTMENT OF HOSPITAL MEDICINE PROGRESS NOTE SERVICE DATE: 10/28/2024 SERVICE TIME: 2:22 PM Hospital Medicine/Primary Attending: Luis Cui MD NIGHT AND WEEKEND COVERAGE: [facility] COVERAGE: Days: [phone], please page Luis Cui for patient issues. Nights: [phone], please page Team GIM 1: G/H 8th floor: [address]; Non 8th floor [address] Subjective INTERVAL HPI: No acute events overnight HDS, RA Seen in dialysis. Doing well. Denies any complaints. Denies any new complains Stable Hb. INR 2.0 Plan- - Continue Heparin to Coumadin bridge. Coumadin 5 mg tonight - DC to SNF when INR is therapeutic Current Facility-Administered Medications Medication Dose Route Frequency NaCl 0.9% iv flush bag 20 mL INTRAVENOUS PRN dextrose 15 gram/32 mL 15 g (TRUEPLUS) 15 g ORAL PRN Or glucagon 1 mg injection 1 mg INTRAMUSCULAR PRN Or dextrose 10% iv bolus 12.5 g INTRAVENOUS PRN midodrine 20 mg tab(s) (PROAMATINE) 20 mg ORAL q [address] 40 mg tab(s) (PROTONIX) 40 mg ORAL DAILY acetaminophen 650 mg tab(s) (TYLENOL) 650 mg ORAL q 6 H PRN sevelamer carbonate 2,400 mg tab(s) (RENVELA) 2,400 mg ORAL TID w MEALS melatonin 9 mg tab(s) 9 mg ORAL DAILY (8 PM) calcitriol 1.5 mcg cap(s) (ROCALTROL) 1.5 mcg ORAL MO-WE- midodrine 20 mg tab(s) (PROAMATINE) 20 mg ORAL PRN DIALYSIS Darbepoetin Osito In Polysorbat 60 mcg injection (ARANESP) 60 mcg SUBCUTANEOUS q MON B Complex-Vitamin C-Folic Acid 1 tablet tab(s) (JOHNSON-VIT) 1 tablet ORAL DAILY cinacalcet 60 mg tab(s) (SENSIPAR) 60 mg ORAL DAILY polyethylene glycol 3350 17 g packet 17 g ORAL BID senna 8.6 mg tab(s) (SENOKOT) 8.6 mg ORAL AT BEDTIME bisacodyl EC 5 mg tab(s) (DULCOLAX) 5 mg ORAL DAILY oxyCODONE IR 5-10 mg tab(s) (ROXICODONE) 5-10 mg ORAL q 4 H PRN heparin iv infusion 25,000 units in NaCl 0.45% 250 mL STANDARD NOMOGRAM 0-3,000 Units/hr INTRAVENOUS CONTINUOUS And heparin RATE CHANGE bolus 1,000-10,000 Units for subtherapeutic PTTAC results 1,000-10,000 Units INTRAVENOUS PRN warfarin order for discharge OTHER PRN sodium zirconium cyclosilicate 10 g oral packet (LOKELMA) 10 g ORAL DAILY HYDROmorphone 0.5 mg injection (DILAUDID) 0.5 mg INTRAVENOUS DAILY PRN ondansetron orally disintegrating 4 mg tab(s) (ZOFRAN ODT) 4 mg ORAL q 6 H PRN prochlorperazine 5 mg injection (COMPAZINE) 5 mg INTRAVENOUS q 4 H PRN warfarin 5 mg tab(s) (COUMADIN) 5 mg ORAL ONCE - WARFARIN Objective PHYSICAL EXAM: BP 104/71 Pulse 64 Temp (Src) 97.3 (Axillary) Resp 16 Ht 5' 9.685 (1.77m) Wt 249 lb 1.9 oz (113.0kg) SpO2 100% BMI 36.07 kg/(m2). O2 Therapy: Continuous Positive Airway Pressure, Liters: 3 Physical Exam Performed AO 3 No distress Right sided TDC present Lungs with decreased breath sounds at bases. Normal S1/S2 Chest wall varices + Soft, non tender abdomen 1+ pedal edema Lines, Drains, and Airways Line Duration Peripheral 01/14/25 0530 [facility] Short Right Forearm 20 Gauge 16 days Dialysis / Apheresis Double Lumen 10/22/24 1932 [facility] Tunneled Right Subclavian 5 days Patient does not currently have any lines, drains or airways. 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 He also expressed a poor pain control on oxycodone.Patient follows withpain management as outpatient for pain associated with chest and abdominal wounds. He currently takes oxycodone 10 mg every 8 hours.Denied fevers or foul-smelling discharge from both wounds. Receiving wound care at home. 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 Personal history of DVT (deep vein thrombosis) PAF (paroxysmal atrial fibrillation) ([facility]) History of stroke Hypotension, chronic Anemia due to stage 5 chronic kidney disease, not on chronic dialysis ([facility]) ([facility]) Status post Maze operation for atrial fibrillation Skin ulcer, limited to breakdown of skin ([facility]) SVC syndrome Generalized weakness Impaired functional mobility, balance, gait, and endurance Secondary hyperparathyroidism, renal ([facility]) Ischemic ulcer with fat layer exposed ([facility]) SVC syndrome-multiple right and left IJ catheters placed in past resulting in stenosis of central veins. - Vascular surgery input appreciated -- no surgical intervention available. - S/P IR venoplasty, placement of Right chest wall TDC - TDC should not be removed without consulting IR in this patient. Chest and abdomen ulcerations -- ischemic ulcers on biopsy - No overt evidence of infection, observing off abx - Evaluated by dermatology and s/p biopsy, continuing wound care in the meantime - Pain control with prn oxycodone, dilaudid for breakthrough, appreciate pain med input. Atrial fibrillation and severe mitral stenosis s/p mechanical mitral valve replacement with On-x valve (INR goal 2.5-3.5), Maze procedure and RADHA clip on 08/21/2021. - Cont heparin gtt to coumadin bridge ESRD on hemodialysis via RIGHT chest TDC on [facility] Hyperkalemia - Nephrology following and optimizing HD - Lokelma + optimize bowel regimen. - Renal diet Anemia of ESRD -Hb at baseline(8.0-8.5) GERD -continue pantoprazole Obesity YEIMY on CPAP Secondary hyperparathyroidism -continue calcitriol, Cinacalcet, sevelamer Exogenous Class 2 Obesity Medication and Non-Pharmacologic VTE Prophylaxis/Anticoagulants Anticoagulant AND Antiplatelet Medications (From admission, onward) Start Dose Route Frequency Last Action Ordered Stop 10/28/24 1700 warfarin 5 mg tab(s) (COUMADIN) 5 mg ORAL ONCE - WARFARIN Ordered 10/28/24 1422 10/29/24 0459 10/22/24 2230 heparin iv infusion 25,000 units in NaCl 0.45% 250 mL STANDARD NOMOGRAM (Heparin Infusion + Bolus for Subtherapeutic PTTAC) 0-30 mL/hr Placed in And Linked Group 0-3,000 Units/hr INTRAVENOUS CONTINUOUS New Bag/Syringe/Bottle, 10/28 1314 10/22/24 2221 -- 10/12/24 1111 activity - mobilize [place] ([place]) VTE Prophylaxis: VTE prophylaxis appropriate Disposition: SNF Plan of care discussed with Provider, RN, Patient Plan communicated to: Patient prefers to communicate with family. Luis Cui MD Associate Staff [address] [address] Pager [phone] PTT, ANTICOAGULANT THERAPY Collected: 0 10/28/2024 10:23 AM Status: F Source: [facility] Order Comment: Specimen Type : BLOOD SPECIMEN Ordering Facility: [facility] Address: [address] [place] [address] TYPE CODE TESTS RESULT OUT OF RANGE REFERENCE UNITS LAB 16469-9(LOINC) aPTT PPP 94.4 High 23.0-32.4 sec Performed By: #### PTTAC ### # [facility] CLIA [id number] [address] [facility] [place] [address] [place] RENAL FUNC 2000 PNL SERPL Collected: 8:30 AM Status: F Source: [facility] Order Comment: Specimen Type : BLOOD SPECIMEN Ordering Facility: [facility] Address: [address] [place] [address] TYPE CODE TESTS RESULT OUT OF RANGE REFERENCE UNITS LAB 1751-7(LOINC) Albumin SerPl-mCnc 3.8 Low 3.9-4.9 g/dL LAB 74816-7(LOINC) Calcium SerPl-mCnc 8.6 8.5-10.2 mg/dL LAB 2777-1(LOINC) Phosphate SerPl-mCnc 3.6 2.7-4.8 mg/dL LAB 2345-7(LOINC) Glucose SerPl-mCnc 80 74-99 mg/dL Result Comment: The [place] Diabetes Association (ADA) provides guidance for cutoff values for fasting glucose and random glucose. The ADA defines fasting as no caloric intake for at least 8 hours. Fasting plasma glucose results between 100 to 125 mg/dL indicate increased risk for diabetes (prediabetes). Fasting plasma glucose results greater than or equal to 126 mg/dL meet the criteria for diagnosis of diabetes. In the absence of unequivocal hyperglycemia, results should be confirmed by repeat testing. In a patient with classic symptoms of hyperglycemia or hyperglycemic crisis, random plasma glucose results greater than or equal to 200 mg/dL meet the criteria for diagnosis of diabetes. Reference: Standards of Medical Care in Diabetes 2016, [place] Diabetes Association. Diabetes Care. 2016.39(Suppl 1). LAB 3094-0(LOINC) BUN SerPl-mCnc 17 9-24 mg/ dL LAB 2160-0(LOINC) Creat SerPl-mCnc 6.18 High 0.73-1.22 mg/dL LAB 2951-2(LOINC) Sodium SerPl-sCnc 135 Low 136-144 mmol/L LAB 2823-3(LOINC) Potassium SerPl-sCnc 4.3 3.7-5.1 mmol/L LAB 2075-0(LOINC) Chloride SerPl-sCnc 93 Low 98-107 mmol/L LAB 2027-9(LOINC) CO2 SerPl-sCnc 29 22-30 mmo l/L LAB 36720-4(LOINC) Anion Gap SerPl-sCnc 13 8-15 mmol/L LAB 10161-2(LOINC) Creatinine + eGFR Pnl SerPlBld 11 Low >=60 mL/min/1 .73m??? Result Comment: Estimated Gl omerular Filtration Rate (eGFR) is calculated using the 2020 CKD-EPI creatinine equation. This equation utilizes serum creatinine, sex, and age as parameters. The creatinine assay has traceable calibration to isotope dilution-mass spectrometry. Refer to KDIGO guidelines for clinical interpretation. In patients with unstable renal function, e.g. those with acute kidney injury, the eGFR may not accurately reflect actual GFR. Performed By: #### [id number] # ### [facility] CLIA [id number] [address] [place] [address] PT PNL PPP Collected: 10/28/2024 8:30 AM Status: F Source: [facility] Order Comment: Specimen Type : BLOOD SPECIMEN Ordering Facility: [facility] Address: [address] [place] [address] TYPE CODE TESTS RESULT OUT OF RANGE REFERENCE UNITS LAB 5902-2(LOINC) Prothrombin time 20.8 High 9.7-13.0 sec LAB 6301-6(LOINC) INR PPP 2.0 High 0.9-1.3 Result Comment: Vitamin K An tagonist (VKA) Therapeutic Range: INR 2 to 3 (Target INR of 2.5) Note: For patients treated with VKA drugs, such as warfarin, the [place] College of Chest Physicians 2012 Guideline recommends a therapeutic INR range of 2 to 3 (target INR of 2.5). This recommendation includes high-risk patients with antiphospholipid syndrome with previous arterial or venous thromboembolism, current-generation mechanical or bioprosthetic aortic heart valve replacement. Note: Patients with mechanical aortic valve replacement and additional risk factors for thromboembolic events (atrial fibrillation, previous thromboembolism, LV dysfunction, hypercoagulable conditions) or an older generation mechanical AVR (i.e., ball in-Cage) or any mechanical MVR should have a INR therapeutic range of 2.5 to 3.5 (target INR of 3). Guyatt GH, et al. Chest 2012, 141:7S-47S Kevin RA, et al. [facility] 2017, 70: 252-289 Performed By: #### 04793-0 # ### [facility] CLIA [id number] [address] [place] [address] [place] CBC PNL BLD AUTO Collected: 8:30 AM Status: F Source: [facility] Order Comment: Specimen Type : BLOOD SPECIMEN Ordering Facility: [facility] Address: [address] [place] [address] TYPE CODE TESTS RESULT OUT OF RANGE REFERENCE UNITS LAB 6690-2(LOINC) WBC # Bld Auto 5.15 3.70-11.00 k/uL LAB 789-8(LOINC) RBC # Bld Auto 3.07 Low 4.20-6.00 m/uL LAB 718-7(LOINC) Hgb Bld-mCnc 8.6 Low 13.0-17.0 g/dL LAB 4544-3(LOINC) Hct VFr Bld Auto 29.5 Low 39.0-51.0 % LAB 787-2(LOINC) MCV RBC Auto 96.1 80.0-100.0 fL LAB 785-6(LOINC) MCH RBC Qn Auto 28.0 26.0-34.0 pg LAB 786-4(LOINC) MCHC RBC Auto-mCnc 29.2 Low 30.5-36.0 g/dL LAB 25864-7(LOINC) RDW RBC-Rto 19.0 High 11.5-15.0 % LAB 777-3(LOINC) Platelet # Bld Auto 144 Low 150-400 k/uL LAB 01200-7(LOINC) PMV Bld Auto 11.4 9.0-12.7 fL LAB 771-6(LOINC) nRBC # Bld Auto <0.01 <0.01 k/uL Performed By: #### 35025-2 # ### [facility] CLIA [id number] [address] [place] [address] [place] CONSULT Observed: 10/28/2024 6:09 AM Status: COMPLETED Source: [facility] HNO ID: [id number] Author: LISSY KUMARI, RACKET STRINGER.PLANNED GIVING OFFICER Service: Wound Care Team Author Type: Clinical Nurse Specialist Type: Consults Filed: 10/28/2024 06:11 Note Text: Wound Care Consult Team Assessment Note: PATIENT NAME: Elia Weston WCCT was consulted by nursing for wounds on the chest. Dermatology has been following the patient and wrote recommendations for care. WCCT will defer the consult to avoid duplication of services. Please reconsult if further needs arise. Lissy Kumari, MSN, RACKET STRINGER, ACNS-BC, CWOCN CONSULT PROG Observed: 10/27/2024 2:54 PM Status: COMPLETED Source: [facility] HNO ID: [id number] Author: CAMILO NORTON PA-C Service: Nephrology Author Type: Physician Teacher Tutor Type: Consult Progress Note Filed: 10/27/2024 15:01 Note Text: Department of Kidney Medicine Medical Special[facility] [place] [facility] NEPHROLOGY CONSULT SERVICE PROGRESS NOTE INTERVAL HISTORY: - seen on IHD orders in [facility] reviewed - UF ~3L tolerating well - monitoring INR heparin, Last Rate: 2,100 Units/hr (10/27/24 1213) MEDICATIONS: Current Facility-Administered Medications Medication Dose Route Frequency NaCl 0.9% iv flush bag 20 mL INTRAVENOUS PRN dextrose 15 gram/32 mL 15 g (TRUEPLUS) 15 g ORAL PRN Or glucagon 1 mg injection 1 mg INTRAMUSCULAR PRN Or dextrose 10% iv bolus 12.5 g INTRAVENOUS PRN midodrine 20 mg tab(s) (PROAMATINE) 20 mg ORAL q [address] 40 mg tab(s) (PROTONIX) 40 mg ORAL DAILY acetaminophen 650 mg tab(s) (TYLENOL) 650 mg ORAL q 6 H PRN sevelamer carbonate 2,400 mg tab(s) (RENVELA) 2,400 mg ORAL TID w MEALS melatonin 9 mg tab(s) 9 mg ORAL DAILY (8 PM) calcitriol 1.5 mcg cap(s) (ROCALTROL) 1.5 mcg ORAL MO-WE- midodrine 20 mg tab(s) (PROAMATINE) 20 mg ORAL PRN DIALYSIS Darbepoetin Osito In Polysorbat 60 mcg injection (ARANESP) 60 mcg SUBCUTANEOUS q MON B Complex-Vitamin C-Folic Acid 1 tablet tab(s) (JOHNSON-VIT) 1 tablet ORAL DAILY cinacalcet 60 mg tab(s) (SENSIPAR) 60 mg ORAL DAILY polyethylene glycol 3350 17 g packet 17 g ORAL BID senna 8.6 mg tab(s) (SENOKOT) 8.6 mg ORAL AT BEDTIME bisacodyl EC 5 mg tab(s) (DULCOLAX) 5 mg ORAL DAILY oxyCODONE IR 5-10 mg tab(s) (ROXICODONE) 5-10 mg ORAL q 4 H PRN heparin iv infusion 25,000 units in NaCl 0.45% 250 mL STANDARD NOMOGRAM 0-3,000 Units/hr INTRAVENOUS CONTINUOUS And heparin RATE CHANGE bolus 1,000-10,000 Units for subtherapeutic PTTAC results 1,000-10,000 Units INTRAVENOUS PRN warfarin order for discharge OTHER PRN sodium zirconium cyclosilicate 10 g oral packet (LOKELMA) 10 g ORAL DAILY HYDROmorphone 0.5 mg injection (DILAUDID) 0.5 mg INTRAVENOUS DAILY PRN ondansetron orally disintegrating 4 mg tab(s) (ZOFRAN ODT) 4 mg ORAL q 6 H PRN prochlorperazine 5 mg injection (COMPAZINE) 5 mg INTRAVENOUS q 4 H PRN warfarin 7.5 mg tab(s) (COUMADIN) 7.5 mg ORAL ONCE - WARFARIN ALLERGIES: Gabapentin and Trazodone PHYSICAL EXAM: BP 100/59 Pulse 72 Temp 36.6 ?C (97.9 ?F) Resp 17 Ht 177 cm (5' 9.69) Wt 113 kg (249 lb 1.9 oz) SpO2 99% BMI 36.07 kg/m? Intake/Output Summary (Last 24 hours) at 10/27/2024 1454 Last data filed at 10/27/2024 1345 Gross per 24 hour Intake 550 ml Output 3000 ml Net -2450 ml GENERAL: awake, alert, in no acute distress, cooperative, lying in bed SKIN: Skin color, texture, turgor normal. No rashes or lesions. HEENT: normocephalic, , moist oral mucosa NECK: no JVD, masses or bruits LUNGS: Good diaphragmatic excursion and normal respiratory effort. CARDIAC: RRR ABDOMEN: soft, EXTREMITIES:generalized edema NEURO: AOx3, normal speech, muscle strength grossly intact ACCESS: RIJ TDC accessed with normal findinfs Lines, Drains, and Airways Line Duration Peripheral 10/12/24 0530 [facility] Short Right Forearm 20 Gauge 15 days Dialysis / Apheresis Double Lumen 10/22/24 1932 [facility] Tunneled Right Subclavian 4 days Labs: Recent Labs 10/27/24 0422 10/26/24 0737 10/26/24 0438 10/25/24 0520 10/25/24 0519 WBC 4.65 -- 4.39 5.59 -- HB 8.1* -- 8.8* 8.0* -- HCT 27.4* -- 29.2* 26.4* -- PLT 147* -- 152 166 -- INR 1.7* -- 1.6* -- 1.5* APTT 73.8* 58.8* -- -- 76.9* NA 136 -- 137 136 -- K 5.0 -- 5.2* 5.9* -- CHLOR 95* -- 95* 95* -- CO2 27 -- 28 24 -- ANION 14 -- 14 17* -- BUN 29* -- 21 42* -- CREAT 9.42* -- 7.27* 11.15* -- GLUC 89 -- 81 86 -- CA 8.0* -- 8.5 8.1* -- P 4.3 -- 3.6 6.1* -- Recent Labs 10/27/242 10/26/24 0438 10/25/24 0520 ALB 3.7* 3.8* 3.8* ASSESSMENT: 44 year old male with Pmhx of Afib, hx MVR on coumadin, ESRD on HD MWF, hyperparathyroidism, HTN, hx of SVC syndrome, HLD, obesity and YEIMY presenting with complaint of painful chronic chest wound and missed dialysis. Of note, he was recently admitted for a dislodged catheter and had femoral TDC 50cm replacement 10/07/24. Course has been complicated by SVC syndrome workup, with a history of complication of multiple bilateral IJ TDC placement/associated thrombosis also leading to chest wall and abdominal varices. Vascular surgery was consulted. Nephrology consulted for ESRD management 1. ESRD Hx First HD: 2005 Unit: [facility] Najma Configuration Release Manager: Dr. Melendez Days: EDW: 114.1 kg Time: 4.5 hrs Access: RIJ TDC placed 10/22/24 this admission SHPT: rocaltrol 1.5mcg TIW, sensipar 60mg daily, PTH 1500 Heparin: 10,000u bolus 2. Electrolytes: stable 3. Volume status: hypervolemia improved 4. Acid-base: stable 5. Ca/P/PTH,Bone mineral disease: - Sevelamer with meals. Calcium ok on rocaltrol and sensipar 6. Anemia of CKD below goal on ANABELLA, high ferritin PLAN: - HD today 4.5hr 2k and UF 3L - next session Friday () - continue aranesp, sensipar, calcitriol - lokelma 10mg once daily Standard ESRD recommendations and precautions: - Strict IANDOs and Daily weight - Consider a Potassium restricted (2g/day) Diet for HD patients - Fluid restriction < 1 L - Start renal multivitamin to replace water-soluble vitamins lost during dialysis - Avoid Lovenox, Morphine, K-containing IVF, Mg- or Phos- containing enemas Consent for DRYWALL SANDER: ESRD Camilo Norton PA-C Department of Kidney Medicine [facility] October 27, 2024 2:54 PM PAGER # [phone] Disclosures: Parts of the current progress note may have been copied from a previous note. FOR AFTER HOUR CONCERNS BETWEEN 5PM - 7AM CONTACT ON-CALL NEPHROLOGY FELLOW [phone] PROGRESS Observed: 10/27/2024 12:01 PM Status: COMPLETED Source: [facility] HNO ID: [id number] Author: LUIS CUI MD Service: General Internal Medicine Author Type: Physician Type: Progress Notes Filed: 10/27/2024 12:03 Note Text: DEPARTMENT OF HOSPITAL MEDICINE PROGRESS NOTE SERVICE DATE: 10/27/2024 SERVICE TIME: 12:01 PM Hospital Medicine/Primary Attending: Luis Cui MD NIGHT AND WEEKEND COVERAGE: [facility] COVERAGE: Days: [phone], please page Luis Cui for patient issues. Nights: [phone], please page Team GIM 1: G/H 8th floor: [address]; Non 8th floor [phone] Subjective INTERVAL HPI: No acute events overnight HDS, RA Seen in dialysis. Doing well. Denies any complaints. Denies any new complains Stable Hb. INR 1.7 Plan- - Continue Heparin to Coumadin bridge. Coumadin 7.5 mg tonight - DC to SNF when INR is therapeutic Current Facility-Administered Medications Medication Dose Route Frequency NaCl 0.9% iv flush bag 20 mL INTRAVENOUS PRN dextrose 15 gram/32 mL 15 g (TRUEPLUS) 15 g ORAL PRN Or glucagon 1 mg injection 1 mg INTRAMUSCULAR PRN Or dextrose 10% iv bolus 12.5 g INTRAVENOUS PRN midodrine 20 mg tab(s) (PROAMATINE) 20 mg ORAL q [address] 40 mg tab(s) (PROTONIX) 40 mg ORAL DAILY acetaminophen 650 mg tab(s) (TYLENOL) 650 mg ORAL q 6 H PRN sevelamer carbonate 2,400 mg tab(s) (RENVELA) 2,400 mg ORAL TID w MEALS melatonin 9 mg tab(s) 9 mg ORAL DAILY (8 PM) calcitriol 1.5 mcg cap(s) (ROCALTROL) 1.5 mcg ORAL MO-WE-FR midodrine 20 mg tab(s) (PROAMATINE) 20 mg ORAL PRN DIALYSIS Darbepoetin Osito In Polysorbat 60 mcg injection (ARANESP) 60 mcg SUBCUTANEOUS q MON B Complex-Vitamin C-Folic Acid 1 tablet tab(s) (JOHNSON-VIT) 1 tablet ORAL DAILY cinacalcet 60 mg tab(s) (SENSIPAR) 60 mg ORAL DAILY polyethylene glycol 3350 17 g packet 17 g ORAL BID senna 8.6 mg tab(s) (SENOKOT) 8.6 mg ORAL AT BEDTIME bisacodyl EC 5 mg tab(s) (DULCOLAX) 5 mg ORAL DAILY oxyCODONE IR 5-10 mg tab(s) (ROXICODONE) 5-10 mg ORAL q 4 H PRN heparin iv infusion 25,000 units in NaCl 0.45% 250 mL STANDARD NOMOGRAM 0-3,000 Units/hr INTRAVENOUS CONTINUOUS And heparin RATE CHANGE bolus 1,000-10,000 Units for subtherapeutic PTTAC results 1,000-10,000 Units INTRAVENOUS PRN warfarin order for discharge OTHER PRN sodium zirconium cyclosilicate 10 g oral packet (LOKELMA) 10 g ORAL DAILY HYDROmorphone 0.5 mg injection (DILAUDID) 0.5 mg INTRAVENOUS DAILY PRN ondansetron orally disintegrating 4 mg tab(s) (ZOFRAN ODT) 4 mg ORAL q 6 H PRN prochlorperazine 5 mg injection (COMPAZINE) 5 mg INTRAVENOUS q 4 H PRN warfarin 7.5 mg tab(s) (COUMADIN) 7.5 mg ORAL ONCE - WARFARIN Objective PHYSICAL EXAM: BP 94/62 Pulse 64 Temp (Src) 98.2 (Oral) Resp 17 Ht 5' 9.685 (1.77m) Wt 249 lb 1.9 oz (113.0kg) SpO2 97% BMI 36.07 kg/(m2). O2 Therapy: Room Air, Liters: 3 Physical Exam Performed AO 3 No distress Right sided TDC present Lungs with decreased breath sounds at bases. Normal S1/S2 Chest wall varices + Soft, non tender abdomen 1+ pedal edema Lines, Drains, and Airways Line Duration Peripheral 10/12/24 0530 [facility] Short Right Forearm 20 Gauge 15 days Dialysis / Apheresis Double Lumen 10/22/24 1932 [facility] Tunneled Right Subclavian 4 days Patient does not currently have any lines, drains or airways. 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 He also expressed a poor pain control on oxycodone.Patient follows withpain management as outpatient for pain associated with chest and abdominal wounds. He currently takes oxycodone 10 mg every 8 hours.Denied fevers or foul-smelling discharge from both wounds. Receiving wound care at home. 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 Personal history of DVT (deep vein thrombosis) PAF (paroxysmal atrial fibrillation) ([facility]) History of stroke Hypotension, chronic Anemia due to stage 5 chronic kidney disease, not on chronic dialysis (HCC) (HCC) Status post Maze operation for atrial fibrillation Skin ulcer, limited to breakdown of skin (HCC) SVC syndrome Generalized weakness Impaired functional mobility, balance, gait, and endurance Secondary hyperparathyroidism, renal (HCC) Ischemic ulcer with fat layer exposed (HCC) SVC syndrome-multiple right and left IJ catheters placed in past resulting in stenosis of central veins. - Vascular surgery input appreciated -- no surgical intervention available. - S/P IR venoplasty, placement of Right chest wall TDC - TDC should not be removed without consulting IR in this patient. Chest and abdomen ulcerations -- ischemic ulcers on biopsy - No overt evidence of infection, observing off abx - Evaluated by dermatology and s/p biopsy, continuing wound care in the meantime - Pain control with prn oxycodone, dilaudid for breakthrough, appreciate pain med input. Atrial fibrillation and severe mitral stenosis s/p mechanical mitral valve replacement with On-x valve (INR goal 2.5-3.5), Maze procedure and RADHA clip on 08/21/2021. - Cont heparin gtt to coumadin bridge ESRD on hemodialysis via RIGHT chest TDC on MWF Hyperkalemia - Nephrology following and optimizing HD - Samnj + optimize bowel regimen. - Renal diet Anemia of ESRD -Hb at baseline(8.0-8.5) GERD -continue pantoprazole Obesity YEIMY on CPAP Secondary hyperparathyroidism -continue calcitriol, Cinacalcet, sevelamer Exogenous Class 2 Obesity Medication and Non-Pharmacologic VTE Prophylaxis/Anticoagulants Anticoagulant AND Antiplatelet Medications (From admission, onward) Start Dose Route Frequency Last Action Ordered Stop 10/27/24 1700 warfarin 7.5 mg tab(s) (COUMADIN) 7.5 mg ORAL ONCE - WARFARIN Ordered 10/27/24 0848 10/28/24 0459 10/22/24 2230 heparin iv infusion 25,000 units in NaCl 0.45% 250 mL STANDARD NOMOGRAM (Heparin Infusion + Bolus for Subtherapeutic PTTAC) 0-30 mL/hr Placed in And Linked Group 0-3,000 Units/hr INTRAVENOUS CONTINUOUS Rate Verify, 10/27 0800 10/22/24 2221 -- 10/12/24 1111 activity - mobilize patient (nj,ms) VTE Prophylaxis: VTE prophylaxis appropriate Disposition: SNF Plan of care discussed with Provider, RN, Patient Plan communicated to: Patient prefers to communicate with family. Luis Cui MD Associate Staff [facility] [address] [place] [address] Pager [phone] ALLIED HEALTH Observed: 10/27/2024 10:13 AM Status: COMPLETED Source: [facility] HNO ID: [id number] Author: LOLY GREWAL Art Therapist Service: Art Therapy Author Type: Therapist Type: Allied Health Filed: 10/27/2024 11:01 Note Text: ART THERAPY NOTE SERVICE DATE: 10/27/2024 SERVICE TIME: 10:13AM Referred By: PT Reason for Referral: Self-Expression / Relaxation Session Type: Follow Up Follow Up: Will Follow Up as Able COMMENTS: Pt out of room upon attempt for test/procedure. Left missed contact card to inform pt of missed visit. Will follow up as able. SIGNATURE: Nathan Tyler PATIENT NAME: Elia Weston DATE: October 27, 2024 TIME: 11:00 AM PAGER/CONTACT #: [phone] THERAPY NT Observed: 10/27/2024 8:54 AM Status: COMPLETED Source: [facility] HNO ID: [id number] Author: ARTIE CHI PTA Service: Physical Therapy Author Type: Bicycle Subassembler Type: Therapy (PT/OT/Speech/Resp) Filed: 10/27/2024 08:54 Note Text: Attestation signed by Grayson Cross PT at 10/29/2024 8:18 AM I reviewed and agree with the documentation corresponding to this therapy visit. SIGNATURE: Grayson Cross, PT DATE: October 29, 2024 TIME: 8:17 AM PHYSICAL THERAPY MISSED VISIT SERVICE DATE: 10/27/2024 SERVICE TIME: 851 ROOM: [place] [address] (Q6-1 Hemodialysis) Patient not seen due to Test / Procedure. SIGNATURE: Artie Chi PTA PATIENT NAME: Elia Weston DATE: October 27, 2024 TIME: 8:54 AM PT PNL PPP Collected: 10/27/2024 4:22 AM Status: F Source: [facility] Order Comment: Specimen Type : BLOOD SPECIMEN Ordering Facility: [facility] Address: [address] [place] [address] TYPE CODE TESTS RESULT OUT OF RANGE REFERENCE UNITS LAB 5902-2(LOINC) Prothrombin time 17.7 High 9.7-13.0 sec LAB 6301-6(LOINC) INR PPP 1.7 High 0.9-1.3 Result Comment: Vitamin K An tagonist (VKA) Therapeutic Range: INR 2 to 3 (Target INR of 2.5) Note: For patients treated with VKA drugs, such as warfarin, the [place] College of Chest [employer]icians 2012 Guideline recommends a therapeutic INR range of 2 to 3 (target INR of 2.5). This recommendation includes high-risk patients with antiphospholipid syndrome with previous arterial or venous thromboembolism, current-generation mechanical or bioprosthetic aortic heart valve replacement. Note: Patients with mechanical aortic valve replacement and additional risk factors for thromboembolic events (atrial fibrillation, previous thromboembolism, LV dysfunction, hypercoagulable conditions) or an older generation mechanical AVR (i.e., ball in-Cage) or any mechanical MVR should have a INR therapeutic range of 2.5 to 3.5 (target INR of 3). Ranjit GH, et al. Chest 2012, 141:7S-47S Kevin RA, et al. JACC 2017, 70: 252-289 Performed By: #### PTTAC, 34 528-0 #### [facility] CLIA [id number] [address] [place] [address] [place] PTT, ANTICOAGULANT THERAPY Collected: 0 10/27/2024 4:22 AM Status: F Source: [facility] Comment: Specimen Type : BLOOD SPECIMEN Ordering Facility: [facility] Address: [address] [place] [address] TYPE CODE TESTS RESULT OUT OF RANGE REFERENCE UNITS LAB 90353-2([facility]) aPTT PPP 73.8 High 23.0-32.4 sec Performed By: #### PTTAC, 34 528-0 #### [facility] CLIA [id number] [address] [place] [address] OF [place] CBC PNL BLD AUTO Collected: 4:22 AM Status: F Source: [facility] Comment: Specimen Type : BLOOD SPECIMEN Ordering Facility: [facility] Address: [address] [place] [address] TYPE CODE TESTS RESULT OUT OF RANGE REFERENCE UNITS LAB 6690-2(LOINC) WBC # Bld Auto 4.65 3.70-11.00 k/uL LAB 789-8(LOINC) RBC # Bld Auto 2.86 Low 4.20-6.00 m/uL LAB 718-7(LOINC) Hgb Bld-mCnc 8.1 Low 13.0-17.0 g/dL LAB 4544-3(LOINC) Hct VFr Bld Auto 27.4 Low 39.0-51.0 % LAB 787-2(LOINC) MCV RBC Auto 95.8 80.0-100.0 fL LAB 785-6(LOINC) MCH RBC Qn Auto 28.3 26.0-34.0 pg LAB 786-4(LOINC) MCHC RBC Auto-mCnc 29.6 Low 30.5-36.0 g/dL LAB 56586-6(LOINC) RDW RBC-Rto 19.2 High 11.5-15.0 % LAB 777-3(LOINC) Platelet # Bld Auto 147 Low 150-400 k/uL LAB 50561-1(LOINC) PMV Bld Auto 10.5 9.0-12.7 fL LAB 771-6([facility]) nRBC # Bld Auto <0.01 <0.01 k/uL Performed By: #### 01029-2 # ### [facility] CLIA [id number] [address] [facility] [address] OF [facility] RENAL FUNC 2000 PNL SERPL Collected: 4:22 AM Status: F Source: [facility] Order Comment: Specimen Type : BLOOD SPECIMEN Ordering Facility: [facility] Address: [address] [place] [address] TYPE CODE TESTS RESULT OUT OF RANGE REFERENCE UNITS LAB 1751-7(LOINC) Albumin SerPl-mCnc 3.7 Low 3.9-4.9 g/dL LAB 46227-3(LOINC) Calcium SerPl-mCnc 8.0 Low 8.5-10.2 mg/dL LAB 2777-1(LOINC) Phosphate SerPl-mCnc 4.3 2.7-4.8 mg/dL LAB 2345-7(LOINC) Glucose SerPl-mCnc 89 74-99 mg/dL Result Comment: The [place] Diabetes Association (ADA) provides guidance for cutoff values for fasting glucose and random glucose. The ADA defines fasting as no caloric intake for at least 8 hours. Fasting plasma glucose results between 100 to 125 mg/dL indicate increased risk for diabetes (prediabetes). Fasting plasma glucose results greater than or equal to 126 mg/dL meet the criteria for diagnosis of diabetes. In the absence of unequivocal hyperglycemia, results should be confirmed by repeat testing. In a patient with classic symptoms of hyperglycemia or hyperglycemic crisis, random plasma glucose results greater than or equal to 200 mg/dL meet the criteria for diagnosis of diabetes. Reference: Standards of Medical Care in Diabetes 2016, [place] Diabetes Association. Diabetes Care. 2016.39(Suppl 1). LAB 3094-0(LOINC) BUN SerPl-mCnc 29 High 9-24 mg/ dL LAB 2160-0(LOINC) Creat SerPl-mCnc 9.42 High 0.73-1.22 mg/dL LAB 2951-2(LOINC) Sodium SerPl-sCnc 136 136-144 mmol/L LAB 2823-3(LOINC) Potassium SerPl-sCnc 5.0 3.7-5.1 mmol/L LAB 2075-0(LOINC) Chloride SerPl-sCnc 95 Low 98-107 mmol/L LAB 2028-9(LOINC) CO2 SerPl-sCnc 27 22-30 mmo l/L LAB 59708-8(LOINC) Anion Gap SerPl-sCnc 14 8-15 mmol/L LAB 33671-1(LOINC) Creatinine + eGFR Pnl SerPlBld 7 Low >=60 mL/min/1 .73m??? Result Comment: Estimated Gl omerular Filtration Rate (eGFR) is calculated using the 2020 CKD-EPI creatinine equation. This equation utilizes serum creatinine, sex, and age as parameters. The creatinine assay has traceable calibration to isotope dilution-mass spectrometry. Refer to KDIGO guidelines for clinical interpretation. In patients with unstable renal function, e.g. those with acute kidney injury, the eGFR may not accurately reflect actual GFR. Performed By: #### 07304-1 # ### [facility] CLIA [id number] [address] [place] [address] STATES OF [facility] THERAPY NT Observed: 10/26/2024 5:07 PM Status: COMPLETED Source: [facility] HNO ID: [id number] Author: ARTIE CHI PTA Service: Physical Therapy Author Type: Bicycle Subassembler Type: Therapy (PT/OT/Speech/Resp) Filed: 10/26/2024 17:09 Note Text: Attestation signed by Grayson Cross PT at 10/26/2024 6:02 PM I reviewed and agree with the documentation corresponding to this therapy visit. SIGNATURE: Grayson Cross PT DATE: October 26, 2024 TIME: 6:02 PM Physical Therapy Treatment Summary SERVICE DATE: 10/26/2024 SERVICE TIME: 1624 to 1702 ROOM: [place] [address] PT 6 Clicks Score: 17 DISCHARGE RECOMMENDATIONS Subacute/SNF Recommended Discharge Disposition Comments: . Recommended Discharge Disposition Due to: Balance deficits, Functional status decline Recommended Discharge Equipment: To Be Determined ASSESSMENT Pt was able to ambulate, needed seated rest periods. Pt needed cues for proper use of AD, ambulated with lateral postural sway, appears unsteady at times. Response to Therapy Interventions: Good Participation in Activities PRECAUTIONS Fall Risk CURRENT HOSPITAL COURSE presenting with uncontrolled pain from chest and abdominal wounds. 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 IND ADLs although he reports that bathing and dressing has been painful and time-consuming. Has been sleeping in recliner 2/2 to pain. Endorses one fall ~1 week ago from [employer] Drives. SUBJECTIVE THERAPY DIAGNOSIS Reduced mobility-other, Muscle Weakness (generalized), Abnormalities of gait and mobility-other, Unsteadiness on feet TREATMENT INTERVENTIONS Therapeutic Exercise (00768), Gait Training (06557), Therapeutic Activity (76607) Timed Code Treatment (minutes): 38 Skilled Treatment Time (minutes): 38 TRAINING AND EDUCATION PROVIDED Assistive Device Use, Bed Mobility, Benefits of In-Hospital Mobility, Exercise Program, Expected Functional Level, Falls Prevention, Gait Pattern, Reduction of Deviations, Role of Physical Therapy, Transfers THERAPEUTIC SKILLS USED Cuing Verbal, Cuing Tactile, Cues for Sequencing/Proper Technique for Activity, Activity Dosing, Cuing Visual FUNCTIONAL STATUS Bed Mobility Rolling: Stand By Assistance Supine To Sit: Contact Guard Assistance, Additional Information Scooting: Stand By Assistance Transfers Sit To Stand: Contact Guard Assistance Stand To Sit: Minimal Assistance Bed to Chair Minimal Assistance Bed To Chair Transfer Type: Stepping Bed To Chair Transfer Equipment: (iv pole) Gait Minimal Assistance Gait Device: Wheeled Walker Gait Distance (feet): 18 feet X 2 trials Stairs (unable to safely attempt) GOALS Patient will demonstrate progress to optimize functional mobility, maximize activity tolerance and endurance to maximize function upon discharge. Rehab Potential: Good Progress Toward Goals: Progressing as expected PLAN PT Frequency: 4 Times Per Week (2) Treatment Interventions: Education, Energy Conservation Training, Functional Mobility Training, Strengthening, Balance Training, Neuromuscular Re-education Plan for Next Visit: Gait Training, Standing Balance, Stair Training SIGNATURE: Artie Chi PTA PATIENT NAME: Elia Weston DATE: October 26, 2024 TIME: 5:08 PM PROGRESS Observed: 10/26/2024 1:29 PM Status: COMPLETED Source: [facility] ID: [id number] Author: LUIS CUI MD Service: General Internal Medicine Author Type: Physician Type: Progress Notes Filed: 10/26/2024 13:30 Note Text: DEPARTMENT OF HOSPITAL MEDICINE PROGRESS NOTE SERVICE DATE: 10/26/2024 SERVICE TIME: 1:29 PM Hospital Medicine/Primary Attending: Luis Cui MD NIGHT AND WEEKEND COVERAGE: [facility] COVERAGE: Days: 8522-6130, please page Luis Cui for patient issues. Nights: [phone], please page Team GIM 1: G/H 8th floor: [address]; Non 8th floor [address] Subjective INTERVAL HPI: No acute events overnight HDS, RA Denies any new complains Stable Hb. INR 1.6 Plan- - Continue Heparin to Coumadin bridge - DC to SNF when INR is therapeutic Current Facility-Administered Medications Medication Dose Route Frequency NaCl 0.9% iv flush bag 20 mL INTRAVENOUS PRN dextrose 15 gram/32 mL 15 g (TRUEPLUS) 15 g ORAL PRN Or glucagon 1 mg injection 1 mg INTRAMUSCULAR PRN Or dextrose 10% iv bolus 12.5 g INTRAVENOUS PRN midodrine 20 mg tab(s) (PROAMATINE) 20 mg ORAL q [address] 40 mg tab(s) (PROTONIX) 40 mg ORAL DAILY acetaminophen 650 mg tab(s) (TYLENOL) 650 mg ORAL q 6 H PRN sevelamer carbonate 2,400 mg tab(s) (RENVELA) 2,400 mg ORAL TID w MEALS melatonin 9 mg tab(s) 9 mg ORAL DAILY (8 PM) calcitriol 1.5 mcg cap(s) (ROCALTROL) 1.5 mcg ORAL MO-WE- midodrine 20 mg tab(s) (PROAMATINE) 20 mg ORAL PRN DIALYSIS Darbepoetin [place] In Polysorbat 60 mcg injection (ARANESP) 60 mcg SUBCUTANEOUS q MON B Complex-Vitamin C-Folic Acid 1 tablet tab(s) (JOHNSON-VIT) 1 tablet ORAL DAILY cinacalcet 60 mg tab(s) (SENSIPAR) 60 mg ORAL DAILY polyethylene glycol 3350 17 g packet 17 g ORAL BID senna 8.6 mg tab(s) (SENOKOT) 8.6 mg ORAL AT BEDTIME bisacodyl EC 5 mg tab(s) (DULCOLAX) 5 mg ORAL DAILY oxyCODONE IR 5-10 mg tab(s) (ROXICODONE) 5-10 mg ORAL q 4 H PRN heparin iv infusion 25,000 units in NaCl 0.45% 250 mL STANDARD NOMOGRAM 0-3,000 Units/hr INTRAVENOUS CONTINUOUS And heparin RATE CHANGE bolus 1,000-10,000 Units for subtherapeutic PTTAC results 1,000-10,000 Units INTRAVENOUS PRN warfarin order for discharge OTHER PRN sodium zirconium cyclosilicate 10 g oral packet (LOKELMA) 10 g ORAL DAILY HYDROmorphone 0.5 mg injection (DILAUDID) 0.5 mg INTRAVENOUS DAILY PRN ondansetron orally disintegrating 4 mg tab(s) (ZOFRAN ODT) 4 mg ORAL q 6 H PRN prochlorperazine 5 mg injection (COMPAZINE) 5 mg INTRAVENOUS q 4 H PRN warfarin 7.5 mg tab(s) (COUMADIN) 7.5 mg ORAL ONCE - WARFARIN Objective PHYSICAL EXAM: BP 98/65 Pulse 84 Temp (Src) 98.1 (Oral) Resp 18 Ht 5' 9.685 (1.77m) Wt 249 lb 1.9 oz (113.0kg) SpO2 96% BMI 36.07 kg/(m2). O2 Therapy: Room Air Physical Exam Performed AO 3 No distress Right sided TDC present Lungs with decreased breath sounds at bases. Normal S1/S2 Chest wall varices + Soft, non tender abdomen 1+ pedal edema Lines, Drains, and Airways Line Duration Peripheral 10/12/24 0530 [facility] Short Right Forearm 20 Gauge 14 days Dialysis / Apheresis Double Lumen 10/22/24 1932 [facility] Tunneled Right Subclavian 3 days Patient does not currently have any lines, drains or airways. 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 He also expressed a poor pain control on oxycodone.Patient follows withpain management as outpatient for pain associated with chest and abdominal wounds. He currently takes oxycodone 10 mg every 8 hours.Denied fevers or foul-smelling discharge from both wounds. Receiving wound care at home. 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 Personal history of DVT (deep vein thrombosis) PAF (paroxysmal atrial fibrillation) ([facility]) History of stroke Hypotension, chronic Anemia due to stage 5 chronic kidney disease, not on chronic dialysis ([facility]) ([facility]) Status post Maze operation for atrial fibrillation Skin ulcer, limited to breakdown of skin (HCC) SVC syndrome Generalized weakness Impaired functional mobility, balance, gait, and endurance Secondary hyperparathyroidism, renal (HCC) Ischemic ulcer with fat layer exposed (HCC) SVC syndrome-multiple right and left IJ catheters placed in past resulting in stenosis of central veins. - Vascular surgery input appreciated -- no surgical intervention available. - S/P IR venoplast, placement of Right chest wall TDC - TDC should not be removed without consulting IR in this patient. Chest and abdomen ulcerations -- ischemic ulcers on biopsy - No overt evidence of infection, observing off abx - Evaluated by dermatology and s/p biopsy, continuing wound care in the meantime - Pain control with prn oxycodone, dilaudid for breakthrough, appreciate pain med input. Atrial fibrillation and severe mitral stenosis s/p mechanical mitral valve replacement with On-x valve (INR goal 2.5-3.5), Maze procedure and RADHA clip on 08/21/2021. - Cont heparin gtt to coumadin bridge ESRD on hemodialysis via RIGHT chest TDC on [facility] Hyperkalemia - Nephrology following and optimizing HD - Alfred + optimize bowel regimen. - Renal diet Anemia of ESRD -Hb at baseline(8.0-8.5) GERD -continue pantoprazole Obesity YEIMY on CPAP Secondary hyperparathyroidism -continue calcitriol, Cinacalcet, sevelamer Exogenous Class 2 Obesity Medication and Non-Pharmacologic VTE Prophylaxis/Anticoagulants Anticoagulant AND Antiplatelet Medications (From admission, onward) Start Dose Route Frequency Last Action Ordered Stop 10/26/24 1700 warfarin 7.5 mg tab(s) (COUMADIN) 7.5 mg ORAL ONCE - WARFARIN Ordered 10/26/24 1249 10/27/24 0459 10/22/24 2230 heparin iv infusion 25,000 units in NaCl 0.45% 250 mL STANDARD NOMOGRAM (Heparin Infusion + Bolus for Subtherapeutic PTTAC) 0-30 mL/hr Placed in And Linked Group 0-3,000 Units/hr INTRAVENOUS CONTINUOUS Rate/Dose Calculated - Heparin, 10/26 0856 10/22/24 2221 -- 10/12/24 1111 activity - mobilize patient (fl,oh) VTE Prophylaxis: VTE prophylaxis appropriate Disposition: To be determined Plan of care discussed with Provider, RN, Patient Plan communicated to: Patient prefers to communicate with family. Luis Cui MD Associate Staff [address] [place] [id number] Pager [phone] PT ED Observed: 10/26/2024 11:12 AM Status: COMPLETED Source: [facility] HNO ID: [id number] Author: EDUARDO MAYNARD RD Service: Nutrition Therapy Author Type: Registered Dietitian Type: Patient Education Filed: 10/26/2024 11:13 Note Text: NUTRITION THERAPY PATIENT EDUCATION SERVICE DATE: 10/26/2024 SERVICE TIME: 9:50am TOPIC: Diet: Renal Diet LEARNING ASSESSMENT Individuals Assessed: Patient Preferred Learning Method: No Preference Barriers to Learning: None Evident LEARNING RESPONSE Instruction Provided to: Patient Patient / Family Response: Verbalizes Understanding Method of Instruction: Written instruction/Handouts Verbal instruction Material(s) Provided to Patient: Education Materials Provided Nutrition Education [facility]: Renal Diet Basics Follow-Up Plan: Complete - No need for follow-up Referral (Recommendation): Nutrition - Outpatient MNT Billing: $ Initial Assessment: 1-15 minutes SIGNATURE: Eduardo Maynard RD PATIENT NAME: Elia Weston DATE: October 26, 2024 TIME: 11:12 AM PAGER: PTT, ANTICOAGULANT THERAPY Collected: 0 10/26/2024 7:37 AM Status: F Source: [facility] Order Comment: Specimen Type : BLOOD SPECIMEN Ordering Facility: [facility] Address: [address] [place] [address] TYPE CODE TESTS RESULT OUT OF RANGE REFERENCE UNITS LAB 00977-7(LOINC) aPTT PPP 58.8 High 23.0-32.4 sec Performed By: #### PTTAC ### # [facility] CLIA [id number] [address] [place] [address] [id number] [place], [place] [id number] [place] CBC PNL BLD AUTO Collected: 4:38 AM Status: F Source: [facility] Order Comment: Specimen Type : BLOOD SPECIMEN Ordering Facility: [facility] Address: [address] [place] [address] TYPE CODE TESTS RESULT OUT OF RANGE REFERENCE UNITS LAB 6690-2(LOINC) WBC # Bld Auto 4.39 3.70-11.00 k/uL LAB 789-8(INC) RBC # Bld Auto 3.04 Low 4.20-6.00 m/uL LAB 718-7([facility]) Hgb Bld-mCnc 8.8 Low 13.0-17.0 g/dL LAB 4544-3([facility]) Hct VFr Bld Auto 29.2 Low 39.0-51.0 % LAB 787-2([facility]) MCV RBC Auto 96.1 80.0-100.0 fL LAB 785-6([facility]) MCH RBC Qn Auto 28.9 26.0-34.0 pg LAB 786-4([facility]) MCHC RBC Auto-mCnc 30.1 Low 30.5-36.0 g/dL LAB 36744-9([facility]) RDW RBC-Rto 19.3 High 11.5-15.0 % LAB 777-3([facility]) Platelet # Bld Auto 152 150-400 k/uL LAB 22410-4([facility]) PMV Bld Auto 11.3 9.0-12.7 fL LAB 771-6([facility]) nRBC # Bld Auto <0.01 <0.01 k/uL Performed By: #### 30749-0 # ### [facility] CLIA [id number] [address] [place] [address] [place] RENAL FUNC 2000 PNL SERPL Collected: 4:38 AM Status: F Source: [facility] Order Comment: Specimen Type : BLOOD SPECIMEN Ordering Facility: [facility] Address: [address] [place] [address] TYPE CODE TESTS RESULT OUT OF RANGE REFERENCE UNITS LAB 1751-7([facility]) Albumin SerPl-mCnc 3.8 Low 3.9-4.9 g/dL LAB 34494-3(INC) Calcium SerPl-mCnc 8.5 8.5-10.2 mg/dL LAB 2777-1(INC) Phosphate SerPl-mCnc 3.6 2.7-4.8 mg/dL Result Comment: Result reche cked. LAB 2345-7(LOINC) Glucose SerPl-mCnc 81 74-99 mg/dL Result Comment: The [place] Diabetes Association (ADA) provides guidance for cutoff values for fasting glucose and random glucose. The ADA defines fasting as no caloric intake for at least 8 hours. Fasting plasma glucose results between 100 to 125 mg/dL indicate increased risk for diabetes (prediabetes). Fasting plasma glucose results greater than or equal to 126 mg/dL meet the criteria for diagnosis of diabetes. In the absence of unequivocal hyperglycemia, results should be confirmed by repeat testing. In a patient with classic symptoms of hyperglycemia or hyperglycemic crisis, random plasma glucose results greater than or equal to 200 mg/dL meet the criteria for diagnosis of diabetes. Reference: Standards of Medical Care in Diabetes 2016, [place] Diabetes Association. Diabetes Care. 2016.39(Suppl 1). LAB 3094-0(LOINC) BUN SerPl-mCnc 21 9-24 mg/ dL LAB 2160-0(LOINC) Creat SerPl-mCnc 7.27 High 0.73-1.22 mg/dL LAB 2951-2(LOINC) Sodium SerPl-sCnc 137 136-144 mmol/L LAB 2823-3(LOINC) Potassium SerPl-sCnc 5.2 High 3.7-5.1 mmol/L LAB 2075-0(LOINC) Chloride SerPl-sCnc 95 Low 98-107 mmol/L LAB 2028-9(LOINC) CO2 SerPl-sCnc 28 22-30 mmo l/L LAB 99061-5(LOINC) Anion Gap SerPl-sCnc 14 8-15 mmol/L LAB 33939-8(LOINC) Creatinine + eGFR Pnl SerPlBld 9 Low >=60 mL/min/1 .73m??? Result Comment: Estimated Gl omerular Filtration Rate (eGFR) is calculated using the 2020 CKD-EPI creatinine equation. This equation utilizes serum creatinine, sex, and age as parameters. The creatinine assay has traceable calibration to isotope dilution-mass spectrometry. Refer to KDIGO guidelines for clinical interpretation. In patients with unstable renal function, e.g. those with acute kidney injury, the eGFR may not accurately reflect actual GFR. Performed By: #### 91850-5 # ### [facility] CLIA [id number] [address] [place] [address] OF [place] PT PNL PPP Collected: 10/26/2024 4:38 AM Status: F Source: [facility] Order Comment: Specimen Type : BLOOD SPECIMEN Ordering Facility: [facility] Address: [address] [place] [address] TYPE CODE TESTS RESULT OUT OF RANGE REFERENCE UNITS LAB 5902-2(LOINC) Prothrombin time 16.6 High 9.7-13.0 sec LAB 6301-6(LOINC) INR PPP 1.6 High 0.9-1.3 Result Comment: Vitamin K An tagonist (VKA) Therapeutic Range: INR 2 to 3 (Target INR of 2.5) Note: For patients treated with VKA drugs, such as warfarin, the [place] [employer]icians 2012 Guideline recommends a therapeutic INR range of 2 to 3 (target INR of 2.5). This recommendation includes high-risk patients with antiphospholipid syndrome with previous arterial or venous thromboembolism, current-generation mechanical or bioprosthetic aortic heart valve replacement. Note: Patients with mechanical aortic valve replacement and additional risk factors for thromboembolic events (atrial fibrillation, previous thromboembolism, LV dysfunction, hypercoagulable conditions) or an older generation mechanical AVR (i.e., ball in-Cage) or any mechanical MVR should have a INR therapeutic range of 2.5 to 3.5 (target INR of 3). Ranjit GH, et al. Chest 2012, 141:7S-47S Kevin RA, et al. [facility] 2017, 70: 252-289 Performed By: #### 62589-0 # ### [facility] IA [id number] [address] [place] [address] OF [place] CNCO Observed: 10/26/2024 12:00 AM Status: COMPLETED Source: [facility] Letter Text ALLIED HEALTH Observed: 10/25/2024 4:49 PM Status: COMPLETED Source: [facility] HNO ID: [id number] Author: SHANNON HOOD Music Therapist Service: Music Therapy Author Type: Therapist Type: Allied Health Filed: 10/25/2024 17:00 Note Text: MUSIC THERAPY NOTE SERVICE DATE: 10/25/2024 SERVICE TIME: 3:17 - 4:30 PM Referred By: Rehab Therapies Reason for Referral: Need for Self-expression, Relaxation Session Type: Initial (of this admission) Time Spent (minutes): 70 GOALS: Goals: Build Rapport, Improve Coping, Increase Relaxation, Increase Self-expression, Promote Feelings of Control, Explore Meaning/Purpose of Life/Illness Coping Items Addressed: Hospitalization, Skills INTERVENTIONS: Interventions: Making Choices, Instrument Playing, Music Discussion, Music Listening, Singing, Therapeutic Use of Self/Verbal Processing, Music Facilitated Reminiscence Making Choices: Songs, Interventions Listening Type: Live, Recorded Response Before After Pain (Did not assess) Anxiety (Did not assess) Mood (Did not assess) Facial Behavior 1 - Neutral 0 - Smiling Body Movement 0 - No Movement/Appropriate Movement 0 - No Movement/Appropriate Movement Sleep N/A - Awake N/A - Awake Vocal 1 - Neutral/No Vocal 0 - Positive Scale: 0 = No pain/anxiety 10 = Worst possible pain/anxiety RESPONSE: Music Choices: Made Choices Number of Choices: 5 Response During Interventions: Knew Songs, Sang, Played Instrument Music Used: Recordings: Melodies From Pain Doctor, My Soul Doth Magnify the Lord, I'm Available to You; Live: His Eye is On the Sparrow, Safe in His Arms, I Trust You Style of Music: Gospel Family Present: No Patient's Verbal Response: Positive OUTCOME: Goals: Met FOLLOW UP: Will Continue to Follow Music therapy referral received and appreciated. Pt familiar with services from previous admissions. [facility] entered room and found pt awake in chair. [facility] greeted pt and provided introduction and offer of services. Pt recalled therapist and was receptive and agreeable to visit. At start of visit, pt appeared fatigued and reported feeling okay. Pt and therapist engaged in sharing updates since previous admission. Pt shared he and spouse have adopted a 1 y.o. son since our last encounter. 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 During the music, pt was observed to listen actively, conduct along occasionally, and tap foot. He expressed that he is looking forward to the concert, but it is also stressful due to the time and work it will take while he is navigating medical challenges.Supportive listening and validation provided. Pt was open to sharing live music, and engaged actively in choosing songs, singing and accompanying self on piano. Therapist also shared a live song during which pt sang along and harmonized. Between songs pt shared memories associated with the music, including the memory of receiving his first keyboard at 12 y.o. on the same day as his father's . Pt has used music since to cope and express himself. At end of visit, pt expressed gratitude and openness to follow up. Music Therapy will continue to follow. SIGNATURE: Shannon Hood Music Therapist PATIENT NAME: Elia Weston DATE: October 25, 2024 TIME: 4:49 PM PAGER/CONTACT #: [phone] NUTRITION Observed: 10/25/2024 2:40 PM Status: [facility]ED [id number] Author: AILEEN SANDOVAL DTR Service: Nutrition Therapy Author Type: Tractor Driver Teamster Type: Nutrition Filed: 10/25/2024 14:41 Note Text: NUTRITION THERAPY CLERICAL ORDER FILLER NOTE SERVICE DATE: 10/25/2024 SERVICE TIME: 1400 Visit Type: Follow-Up Evaluation Goals Met: Met Plan of Care: Supplements: Boost Glucose Control (Patient requested change and supplement. Order pended.) Follow-Up: Tech Reassessment Nursing Admission Assessment Malnutrition Score: 0 Nutrition Intake: Diet Orders (From admission, onward) Start Ordered 10/22/245 DIET RENAL START NOW Question: Renal Answer: 2400 MG K / 2400 MG NA 10/22/24 2205 10/13/24 1300 DIET SUPPLEMENTS START NOW Question Answer Comment Supplement 1 (19 years and up) NEPRO BUTTER PECAN Supplement 1 Frequency TWICE DAILY WITH MEALS 10/13/24 1248 Average Daily Calorie Intake (kcal): 1312 kcal Average Daily Protein Intake (gm): 51 gm Average intake over: 3 days Average Supplement Intake (kcal): 840 kcal Average Supplement Intake (gm): 19 gm Average supplement intake over: 3 days GI Symptoms: None Anthropometrics: Body mass index is 36.07 kg/m?. Loss of lean body mass/visual muscle wasting: No Weight Change: Stable MNT Billing: $ Routine Care : 1-15 minutes SIGNATURE: Aileen Sanodval DTR PATIENT NAME: Elia Weston DATE: October 25, 2024 TIME: 2:40 PM PROGRESS Observed: 10/25/2024 1:13 PM Status: COMPLETED Source: [facility] HNO ID: [id number] Author: LUIS CUI MD Service: General Internal Medicine Author Type: Physician Type: Progress Notes Filed: 10/25/2024 13:14 Note Text: DEPARTMENT OF HOSPITAL MEDICINE PROGRESS NOTE SERVICE DATE: 10/25/2024 SERVICE TIME: 1:13 PM Hospital Medicine/Primary Attending: Luis Cui MD NIGHT AND WEEKEND COVERAGE: [facility] COVERAGE: Days: [phone], please page Luis Cui for patient issues. Nights: [phone], please page Team GIM 1: G/H 8th floor: [address]; Non 8th floor [address] Subjective INTERVAL HPI: No acute events overnight HDS, RA Denies any new complains Stable Hb. INR 1.5 K 5.9 - Due for dialysis today Current Facility-Administered Medications Medication Dose Route Frequency NaCl 0.9% iv flush bag 20 mL INTRAVENOUS PRN dextrose 15 gram/32 mL 15 g (TRUEPLUS) 15 g ORAL PRN Or glucagon 1 mg injection 1 mg INTRAMUSCULAR PRN Or dextrose 10% iv bolus 12.5 g INTRAVENOUS PRN midodrine 20 mg tab(s) (PROAMATINE) 20 mg ORAL q [address] 40 mg tab(s) (PROTONIX) 40 mg ORAL DAILY acetaminophen 650 mg tab(s) (TYLENOL) 650 mg ORAL q 6 H PRN sevelamer carbonate 2,400 mg tab(s) (RENVELA) 2,400 mg ORAL TID w MEALS melatonin 9 mg tab(s) 9 mg ORAL DAILY (8 PM) calcitriol 1.5 mcg cap(s) (ROCALTROL) 1.5 mcg ORAL MO-WE- midodrine 20 mg tab(s) (PROAMATINE) 20 mg ORAL PRN DIALYSIS Darbepoetin Osito In Polysorbat 60 mcg injection (ARANESP) 60 mcg SUBCUTANEOUS q MON B Complex-Vitamin C-Folic Acid 1 tablet tab(s) (JOHNSON-VIT) 1 tablet ORAL DAILY cinacalcet 60 mg tab(s) (SENSIPAR) 60 mg ORAL DAILY polyethylene glycol 3350 17 g packet 17 g ORAL BID senna 8.6 mg tab(s) (SENOKOT) 8.6 mg ORAL AT BEDTIME bisacodyl EC 5 mg tab(s) (DULCOLAX) 5 mg ORAL DAILY oxyCODONE IR 5-10 mg tab(s) (ROXICODONE) 5-10 mg ORAL q 4 H PRN heparin iv infusion 25,000 units in NaCl 0.45% 250 mL STANDARD NOMOGRAM 0-3,000 Units/hr INTRAVENOUS CONTINUOUS And heparin RATE CHANGE bolus 1,000-10,000 Units for subtherapeutic PTTAC results 1,000-10,000 Units INTRAVENOUS PRN warfarin order for discharge OTHER PRN warfarin 5 mg tab(s) (COUMADIN) 5 mg ORAL ONCE - WARFARIN [START ON 10/26/2024] sodium zirconium cyclosilicate 10 g oral packet (LOKELMA) 10 g ORAL DAILY HYDROmorphone 0.5 mg injection (DILAUDID) 0.5 mg INTRAVENOUS DAILY PRN Objective PHYSICAL EXAM: BP 116/62 Pulse 81 Temp (Src) 98.1 (Oral) Resp 17 Ht 5' 9.685 (1.77m) Wt 249 lb 1.9 oz (113.0kg) SpO2 94% BMI 36.07 kg/(m2). O2 Therapy: Room Air Physical Exam Performed AO 3 No distress Right sided TDC present Lungs with decreased breath sounds at bases. Normal S1/S2 Chest wall varices + Soft, non tender abdomen 1+ pedal edema Lines, Drains, and Airways Line Duration Peripheral 10/12/24 0530 [facility] Short Right Forearm 20 Gauge 13 days Dialysis / Apheresis Double Lumen 10/22/24 1932 [facility] Tunneled Right Subclavian 2 days Patient does not currently have any lines, drains or airways. 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 He also expressed a poor pain control on oxycodone.Patient follows withpain management as outpatient for pain associated with chest and abdominal wounds. He currently takes oxycodone 10 mg every 8 hours.Denied fevers or foul-smelling discharge from both wounds. Receiving wound care at home. 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 Personal history of DVT (deep vein thrombosis) PAF (paroxysmal atrial fibrillation) ([facility]) History of stroke Hypotension, chronic Anemia due to stage 5 chronic kidney disease, not on chronic dialysis ([facility]) ([facility]) Status post Maze operation for atrial fibrillation Skin ulcer, limited to breakdown of skin (HCC) SVC syndrome Generalized weakness Impaired functional mobility, balance, gait, and endurance Secondary hyperparathyroidism, renal (HCC) Ischemic ulcer with fat layer exposed ([facility]) SVC syndrome-multiple right and left IJ catheters placed in past resulting in stenosis of central veins. - Vascular surgery input appreciated -- no surgical intervention available. - S/P IR venoplast, placement of Right chest wall TDC - TDC should not be removed without consulting IR in this patient. Chest and abdomen ulcerations -- ischemic ulcers on biopsy - No overt evidence of infection, observing off abx - Evaluated by dermatology and s/p biopsy, continuing wound care in the meantime - Pain control with prn oxycodone, dilaudid for breakthrough, appreciate pain med input. Atrial fibrillation and severe mitral stenosis s/p mechanical mitral valve replacement with On-x valve (INR goal 2.5-3.5), Maze procedure and RADHA clip on 08/21/2021. - Cont heparin gtt to coumadin bridge ESRD on hemodialysis via RIGHT chest TDC on MWF Hyperkalemia - Nephrology following and optimizing HD - Alfred + optimize bowel regimen. - Renal diet Anemia of ESRD -Hb at baseline(8.0-8.5) GERD -continue pantoprazole Obesity YEIMY on CPAP Secondary hyperparathyroidism -continue calcitriol, Cinacalcet, sevelamer Exogenous Class 2 Obesity Medication and Non-Pharmacologic VTE Prophylaxis/Anticoagulants Anticoagulant AND Antiplatelet Medications (From admission, onward) Start Dose Route Frequency Last Action Ordered Stop 10/25/24 1700 warfarin 5 mg tab(s) (COUMADIN) 5 mg ORAL ONCE - WARFARIN Ordered 10/25/24 0848 10/26/24 0459 10/22/24 2230 heparin iv infusion 25,000 units in NaCl 0.45% 250 mL STANDARD NOMOGRAM (Heparin Infusion + Bolus for Subtherapeutic PTTAC) 0-30 mL/hr Placed in And Linked Group 0-3,000 Units/hr INTRAVENOUS CONTINUOUS New Bag/Syringe/Bottle, 10/25 1031 10/22/24 2221 -- 10/12/24 1111 activity - mobilize patient (nj,oh) VTE Prophylaxis: VTE prophylaxis appropriate Disposition: To be determined Plan of care discussed with Provider, RN, Patient Plan communicated to: Patient prefers to communicate with family. Luis Cui MD Associate Staff [place] [id number] [facility]/[address] [address] Pager [phone] CASE MANAGEM Observed: 10/25/2024 12:49 PM Status: COMPLETED Source: [facility] HNO ID: [id number] Author: CORBY RESENDEZ RN Service: ? Author Type: Registered Nurse Type: Care Mgt Progress Note Filed: 10/25/2024 15:19 Note Text: CARE MANAGEMENT PROGRESS NOTE SERVICE DATE: 10/25/2024 SERVICE TIME: 12:49 PM LOS: 13 days Patient skilled for SNF. [facility] accepting and has confirmed HD chair. Per team patient will need 3-5 more days inpatient for coumadin bridge. Will need 7000, precert, and discharge transportation. CM will continue to follow. October 25, 2024 1:32 PM Patient would like to explore other SNF's besides [facility] and would like for CM to send referrals to [place]F's within [place] miles of [facility] to review for acceptance. Will need SNF that either offers on site HD or is willing to transport. Patient's current HD center is too far from [facility] so if patient chooses to facility in that area that is willing to transport CC HD coordinator will need to set up new HD center. October 25, 2024 3:18 PM List of accepting facilities provided to patient. [facility] offers on site HD - if they are FOC they will need chest xray, hep b antigen, hep b surface antibody, hep b total core antibody. SIGNATURE: Corby Resendez RN PATIENT NAME: Elai Weston DATE: October 25, 2024 TIME: 12:49 PM ALLIED HEALTH Observed: 10/25/2024 11:01 AM Status: COMPLETED Source: [facility] HNO ID: [id number] Author: LOLY GREWAL Art Therapist Service: Art Therapy Author Type: Therapist Type: Allied Health Filed: 10/25/2024 11:59 Note Text: ART THERAPY NOTE SERVICE DATE: 10/25/2024 SERVICE TIME: 11:01AM Referred By: PT Reason for Referral: Self-Expression / Relaxation Session Type: Follow Up Follow Up: Will Follow Up as Able COMMENTS: Pt out of room upon attempt, left missed contact card to inform pt of missed visit. Will follow up as able. SIGNATURE: Nathan Tyler Therapist PATIENT NAME: Elia Weston DATE: October 25, 2024 TIME: 11:58 AM PAGER/CONTACT #: [phone] CONSULT PROG Observed: 10/25/2024 9:20 AM Status: COMPLETED Source: [facility] HNO ID: [id number] Author: ELVA PATEL APRN.FLORAL ASSOCIATE Service: ? Author Type: Nurse Practitioner Type: Consult Progress Note Filed: 10/25/2024 11:30 Note Text: Department of Kidney Medicine Medical Specialties [place] [facility] NEPHROLOGY CONSULT SERVICE PROGRESS NOTE INTERVAL HISTORY: No acute events overnight noted requiring immediate intervention. Patient seen on IHD. Orders placed and confirmed in [facility] Admission weight: 113.4 kg (250 lb) Last recorded weight: 113 kg (249 lb 1.9 oz) heparin, Last Rate: 2,100 Units/hr (10/25/24 0618) MEDICATIONS: Current Facility-Administered Medications Medication Dose Route Frequency NaCl 0.9% iv flush bag 20 mL INTRAVENOUS PRN dextrose 15 gram/32 mL 15 g (TRUEPLUS) 15 g ORAL PRN Or glucagon 1 mg injection 1 mg INTRAMUSCULAR PRN Or dextrose 10% iv bolus 12.5 g INTRAVENOUS PRN midodrine 20 mg tab(s) (PROAMATINE) 20 mg ORAL q [address] 40 mg tab(s) (PROTONIX) 40 mg ORAL DAILY acetaminophen 650 mg tab(s) (TYLENOL) 650 mg ORAL q 6 H PRN sevelamer carbonate 2,400 mg tab(s) (RENVELA) 2,400 mg ORAL TID w MEALS melatonin 9 mg tab(s) 9 mg ORAL DAILY (8 PM) calcitriol 1.5 mcg cap(s) (ROCALTROL) 1.5 mcg ORAL MO-WE-FR midodrine 20 mg tab(s) (PROAMATINE) 20 mg ORAL PRN DIALYSIS Darbepoetin Osito In Polysorbat 60 mcg injection (ARANESP) 60 mcg SUBCUTANEOUS q MON B Complex-Vitamin C-Folic Acid 1 tablet tab(s) (JOHNSON-VIT) 1 tablet ORAL DAILY cinacalcet 60 mg tab(s) (SENSIPAR) 60 mg ORAL DAILY polyethylene glycol 3350 17 g packet 17 g ORAL BID senna 8.6 mg tab(s) (SENOKOT) 8.6 mg ORAL AT BEDTIME bisacodyl EC 5 mg tab(s) (DULCOLAX) 5 mg ORAL DAILY oxyCODONE IR 5-10 mg tab(s) (ROXICODONE) 5-10 mg ORAL q 4 H PRN heparin iv infusion 25,000 units in NaCl 0.45% 250 mL STANDARD NOMOGRAM 0-3,000 Units/hr INTRAVENOUS CONTINUOUS And heparin RATE CHANGE bolus 1,000-10,000 Units for subtherapeutic PTTAC results 1,000-10,000 Units INTRAVENOUS PRN HYDROmorphone 0.5 mg injection (DILAUDID) 0.5 mg INTRAVENOUS q 6 H PRN warfarin order for discharge OTHER PRN warfarin 5 mg tab(s) (COUMADIN) 5 mg ORAL ONCE - WARFARIN ALLERGIES: Gabapentin and Trazodone VITAL SIGNS: BP 116/62 Pulse 81 Temp 36.7 ?C (98.1 ?F) (Oral) Resp 17 Ht 177 cm (5' 9.69) Wt 113 kg (249 lb 1.9 oz) SpO2 94% BMI 36.07 kg/m? PHYSICAL EXAM: GENERAL: awake, alert, in no acute distress, cooperative, lying in bed SKIN: Skin color, texture, turgor normal. No rashes or lesions. HEENT: normocephalic, perrl, moist oral mucosa NECK: no JVD, masses or bruits LUNGS: Good diaphragmatic excursion and normal respiratory effort. CARDIAC: RRR ABDOMEN: soft, EXTREMITIES:generalized edema NEURO: AOx3, normal speech, muscle strength grossly intact ACCESS: RIJ TDC accessed with normal findinfs Lines, Drains, and Airways Line Duration Peripheral 10/12/24 0530 [facility] Short Right Forearm 20 Gauge 13 days Dialysis / Apheresis Double Lumen 10/22/24 1932 [facility] Tunneled Right Subclavian 2 days Labs: Recent Labs 10/25/24 0520 10/25/24 0519 10/24/24 0412 10/24/24 0338 10/23/24 2043 10/23/24 1329 10/23/24 0505 10/23/24 0504 10/22/24 2300 WBC 5.59 -- -- -- -- -- 5.89 -- 5.75 HB 8.0* -- -- -- -- -- 7.4* -- 8.8* HCT 26.4* -- -- -- -- -- 25.1* -- 28.3* PLT 166 -- -- -- -- -- 205 -- 184 INR -- 1.5* 1.5* -- -- -- -- 1.6* 1.5* APTT -- 76.9* 73.5* -- 60.7* < > -- 51.6* 37.7* NA 136 -- -- 135* -- -- 135* -- -- K 5.9* -- -- 5.6* -- -- 5.0 -- -- CHLOR 95* -- -- 94* -- -- 93* -- -- CO2 24 -- -- 25 -- -- 28 -- -- ANION 17* -- -- 16* -- -- 14 -- -- BUN 42* -- -- 32* -- -- 22 -- -- CREAT 11.15* -- -- 9.22* -- -- 7.20* -- -- GLUC 86 -- -- 86 -- -- 80 -- -- CA 8.1* -- -- 8.0* -- -- 8.3* -- -- P 6.1* -- -- -- -- -- -- -- -- < > = values in this interval not displayed. Recent Labs 10/25/24 0520 10/22/24 1530 ALB 3.8* -- LACT -- 1.0 ASSESSMENT: 44 year old male with Pmhx of Afib, hx MVR on coumadin, ESRD on HD MWF, hyperparathyroidism, HTN, hx of SVC syndrome, HLD, obesity and YEIMY presenting with complaint of painful chronic chest wound and missed dialysis. Of note, he was recently admitted for a dislodged catheter and had femoral TDC 50cm replacement 10/07/24. Course has been complicated by SVC syndrome workup, with a history of complication of multiple bilateral IJ TDC placement/associated thrombosis also leading to chest wall and abdominal varices. Vascular surgery was consulted. Nephrology consulted for ESRD management 1. ESRD Hx First HD: 2005 Unit: [facility] Configuration Release Manager: Dr. Melendez Days: [facility] EDW: 114.1 kg Time: 4.5 hrs Access: RIJ TDC placed 10/22/24 this admission SHPT: rocaltrol 1.5mcg TIW, sensipar 60mg daily, PTH 1500 Heparin: 10,000u bolus 2. Electrolytes/Acid Base: -Potassium - hyperkalemia - will modulate with 2K bath in DRYWALL SANDER Last URR: 65 3. Volume status: -hypervolemic - BP 119/64 -Midodrine - Pre weight : 125 kg on Q6 versus 113 on 10/12 on RNF?>>need standing weights, order was replaced on 10/20, and still has not been completed on [facility]. 4. Acid-base: - AGMA - will modulate with DRYWALL SANDER 5. Ca/P/Pth/Bone mineral disease: - Sevelamer with meals. Sensipar daily and Calcitriol on dialysis days -previous punch bx in 2022 was not consistent with calciphylaxis 6. Anemia of CKD below goal, high ferritin PLAN: - HD today F250, Qb400, UF 4.1L, 4.5 hrs - next session Friday (MW) -pre and post BUN next treatment -recommend lokelma 10 mg ever day due to persistent hyperkalemia - EDW 114kg - continue Aranesp QMonday - nephrocaps - renvela with meals -need STANDING WEIGHTS - has not been completed since 10/12, order replaced 10/20, nursing reminded. Consent for DRYWALL SANDER: ESRD Outpatient dialysis disposition plan: contact [phone] and ask to speak with the director of front office as needed for assistance with post-discharge arrangements. Please DO NOT schedule patient for a nephrology follow up appointment. Kidney care will be provided by the primary data warehousing engineer at their dialysis unit upon hospital discharge. Elva Patel APRN.FLORAL ASSOCIATE Nephrology and Hypertension [facility] October 25, 2024 9:20 AM PAGER # [phone] Disclosures: Parts of the current progress note may have been copied from a previous note. FOR AFTER HOUR CONCERNS BETWEEN 5PM - 7AM CONTACT ON-CALL NEPHROLOGY FELLOW [phone] THERAPY NT Observed: 10/25/2024 7:55 AM Status: COMPLETED Source: [facility] HNO ID: [id number] Author: GRAYSON CROSS PT Service: Physical Therapy Author Type: Physical Therapist Type: Therapy (PT/OT/Speech/Resp) Filed: 10/25/2024 07:55 Note Text: PHYSICAL THERAPY MISSED VISIT SERVICE DATE: 10/25/2024 SERVICE TIME: 754 ROOM: [place] [id number] ([facility] Hemodialysis) Patient not seen due to: Dialysis SIGNATURE: Grayson Cross PT PATIENT NAME: Elia Weston DATE: October 25, 2024 TIME: 7:55 AM RENAL FUNC 1999 PNL SERPL Collected: 5:20 AM Status: F Source: [facility] Order Comment: Specimen Type : BLOOD SPECIMEN Ordering Facility: [facility] Address: [address] [place] [address] TYPE CODE TESTS RESULT OUT OF RANGE REFERENCE UNITS LAB 1751-7(LOINC) Albumin SerPl-mCnc 3.8 Low 3.9-4.9 g/dL LAB 99328-2(LOINC) Calcium SerPl-mCnc 8.1 Low 8.5-10.2 mg/dL LAB 2777-1(LOINC) Phosphate SerPl-mCnc 6.1 High 2.7-4.8 mg/dL LAB 2345-7(LOINC) Glucose SerPl-mCnc 86 74-99 mg/dL Result Comment: The [place] Diabetes Association (ADA) provides guidance for cutoff values for fasting glucose and random glucose. The ADA defines fasting as no caloric intake for at least 8 hours. Fasting plasma glucose results between 100 to 125 mg/dL indicate increased risk for diabetes (prediabetes). Fasting plasma glucose results greater than or equal to 126 mg/dL meet the criteria for diagnosis of diabetes. In the absence of unequivocal hyperglycemia, results should be confirmed by repeat testing. In a patient with classic symptoms of hyperglycemia or hyperglycemic crisis, random plasma glucose results greater than or equal to 200 mg/dL meet the criteria for diagnosis of diabetes. Reference: Standards of Medical Care in Diabetes 2016, [place] Diabetes Association. Diabetes Care. 2016.39(Suppl 1). LAB 3094-0(LOINC) BUN SerPl-mCnc 42 High 9-24 mg/ dL LAB 2160-0(LOINC) Creat SerPl-mCnc 11.15 High 0.73-1.22 mg/dL LAB 2951-2(LOINC) Sodium SerPl-sCnc 136 136-144 mmol/L LAB 2823-3(LOINC) Potassium SerPl-sCnc 5.9 High 3.7-5.1 mmol/L LAB 2075-0(LOINC) Chloride SerPl-sCnc 95 Low 98-107 mmol/L LAB 2028-9(LOINC) CO2 SerPl-sCnc 24 22-30 mmo l/L LAB 01649-8(LOINC) Anion Gap SerPl-sCnc 17 High 8-15 mmol/L LAB 11403-3(LOINC) Creatinine + eGFR Pnl SerPlBld 5 Low >=60 mL/min/1 .73m??? Result Comment: Estimated Gl omerular Filtration Rate (eGFR) is calculated using the 2020 CKD-EPI creatinine equation. This equation utilizes serum creatinine, sex, and age as parameters. The creatinine assay has traceable calibration to isotope dilution-mass spectrometry. Refer to KDIGO guidelines for clinical interpretation. In patients with unstable renal function, e.g. those with acute kidney injury, the eGFR may not accurately reflect actual GFR. Performed By: #### 42564-5 # ### [facility] CLIA [id number] [address] [place] [address] [place] CBC PNL BLD AUTO Collected: 5 5:20 AM Status: F Source: [facility] Order Comment: Specimen Type : BLOOD SPECIMEN Ordering Facility: [facility] Address: [address] [place] [address] TYPE CODE TESTS RESULT OUT OF RANGE REFERENCE UNITS LAB 6690-2([facility]) WBC # Bld Auto 5.59 3.70-11.00 k/uL LAB 789-8(INC) RBC # Bld Auto 2.79 Low 4.20-6.00 m/uL LAB 718-7([facility]) Hgb Bld-mCnc 8.0 Low 13.0-17.0 g/dL LAB 4544-3([facility]) Hct VFr Bld Auto 26.4 Low 39.0-51.0 % LAB 787-2(INC) MCV RBC Auto 94.6 80.0-100.0 fL LAB 785-6([facility]) MCH RBC Qn Auto 28.7 26.0-34.0 pg LAB 786-4([facility]) MCHC RBC Auto-mCnc 30.3 Low 30.5-36.0 g/dL LAB 39069-9([facility]) RDW RBC-Rto 19.2 High 11.5-15.0 % LAB 777-3(INC) Platelet # Bld Auto 166 150-400 k/uL LAB 75290-6([facility]) PMV Bld Auto 11.2 9.0-12.7 fL LAB 771-6([facility]) nRBC # Bld Auto <0.01 <0.01 k/uL Performed By: #### 58512-7 # ### [facility] CLIA [id number] [address] [place], [place] [id number] [place] PT PNL PPP Collected: 10/25/2024 5:19 AM Status: F Source: [facility] Order Comment: Specimen Type : BLOOD SPECIMEN Ordering Facility: [facility] Address: [address] [place], [place] [address] TYPE CODE TESTS RESULT OUT OF RANGE REFERENCE UNITS LAB 5902-2([facility]) Prothrombin time 16.3 High 9.7-13.0 sec LAB 6301-6([facility]) INR PPP 1.5 High 0.9-1.3 Result Comment: Vitamin K An tagonist (VKA) Therapeutic Range: INR 2 to 3 (Target INR of 2.5) Note: For patients treated with VKA drugs, such as warfarin, the [place] [employer] 2012 Guideline recommends a therapeutic INR range of 2 to 3 (target INR of 2.5). This recommendation includes high-risk patients with antiphospholipid syndrome with previous arterial or venous thromboembolism, current-generation mechanical or bioprosthetic aortic heart valve replacement. Note: Patients with mechanical aortic valve replacement and additional risk factors for thromboembolic events (atrial fibrillation, previous thromboembolism, LV dysfunction, hypercoagulable conditions) or an older generation mechanical AVR (i.e., ball in-Cage) or any mechanical MVR should have a INR therapeutic range of 2.5 to 3.5 (target INR of 3). Ranjit YOUSSEF, et al. Chest 2012, 141:7S-47S Kevin RA, et al. [facility] 2017, 70: 252-289 Performed By: #### PTTAC, 34 528-0 #### [facility] CLIA [id number] [address] [place] [address] [place] PTT, ANTICOAGULANT THERAPY Collected: 0 10/25/2024 5:19 AM Status: F Source: [facility] Order Comment: Specimen Type : BLOOD SPECIMEN Ordering Facility: [facility] Address: [address] [place] [address] TYPE CODE TESTS RESULT OUT OF RANGE REFERENCE UNITS LAB 67811-4(LOINC) aPTT PPP 76.9 High 23.0-32.4 sec Performed By: #### PTTAC, 34 528-0 #### [facility] CLIA [id number] [address] [place] [address] [place] PROGRESS Observed: 10/24/2024 12:47 PM Status: COMPLETED Source: [facility] HNO ID: [id number] Author: LUIS CUI MD Service: General Internal Medicine Author Type: Physician Type: Progress Notes Filed: 10/24/2024 12:48 Note Text: DEPARTMENT OF HOSPITAL MEDICINE PROGRESS NOTE SERVICE DATE: 10/24/2024 SERVICE TIME: 12:47 PM Hospital Medicine/Primary Attending: Luis uCi MD NIGHT AND WEEKEND COVERAGE: [facility] COVERAGE: Days: [phone], please page Luis Cui for patient issues. Nights: [phone], please page Team GIM 1: G/H 8th floor: [address]; Non 8th floor [address] Subjective INTERVAL HPI: No acute events overnight HDS, RA No new complaints today. Doing well K 5.6 > will give one dose of Lokelma Continuing heparin to coumadin bridge Current Facility-Administered Medications Medication Dose Route Frequency NaCl 0.9% iv flush bag 20 mL INTRAVENOUS PRN dextrose 15 gram/32 mL 15 g (TRUEPLUS) 15 g ORAL PRN Or glucagon 1 mg injection 1 mg INTRAMUSCULAR PRN Or dextrose 10% iv bolus 12.5 g INTRAVENOUS PRN midodrine 20 mg tab(s) (PROAMATINE) 20 mg ORAL q [address] 40 mg tab(s) (PROTONIX) 40 mg ORAL DAILY acetaminophen 650 mg tab(s) (TYLENOL) 650 mg ORAL q 6 H PRN sevelamer carbonate 2,400 mg tab(s) (RENVELA) 2,400 mg ORAL TID w MEALS melatonin 9 mg tab(s) 9 mg ORAL DAILY (8 PM) calcitriol 1.5 mcg cap(s) (ROCALTROL) 1.5 mcg ORAL MO-WE- midodrine 20 mg tab(s) (PROAMATINE) 20 mg ORAL PRN DIALYSIS Darbepoetin Osito In Polysorbat 60 mcg injection (ARANESP) 60 mcg SUBCUTANEOUS q MON B Complex-Vitamin C-Folic Acid 1 tablet tab(s) (JOHNSON-VIT) 1 tablet ORAL DAILY cinacalcet 60 mg tab(s) (SENSIPAR) 60 mg ORAL DAILY polyethylene glycol 3350 17 g packet 17 g ORAL BID senna 8.6 mg tab(s) (SENOKOT) 8.6 mg ORAL AT BEDTIME bisacodyl EC 5 mg tab(s) (DULCOLAX) 5 mg ORAL DAILY oxyCODONE IR 5-10 mg tab(s) (ROXICODONE) 5-10 mg ORAL q 4 H PRN heparin iv infusion 25,000 units in NaCl 0.45% 250 mL STANDARD NOMOGRAM 0-3,000 Units/hr INTRAVENOUS CONTINUOUS And heparin RATE CHANGE bolus 1,000-10,000 Units for subtherapeutic PTTAC results 1,000-10,000 Units INTRAVENOUS PRN HYDROmorphone 0.5 mg injection (DILAUDID) 0.5 mg INTRAVENOUS q 6 H PRN warfarin order for discharge OTHER PRN warfarin 5 mg tab(s) (COUMADIN) 5 mg ORAL ONCE - WARFARIN Objective PHYSICAL EXAM: BP 105/52 Pulse 74 Temp (Src) 97.9 (Oral) Resp 19 Ht 5' 9.685 (1.77m) Wt 249 lb 1.9 oz (113.0kg) SpO2 100% BMI 36.07 kg/(m2). O2 Therapy: Room Air Physical Exam Performed AO 3 No distress Right sided TDC present Lungs with decreased breath sounds at bases. Normal S1/S2 Chest wall varices + Soft, non tender abdomen 1+ pedal edema Lines, Drains, and Airways Line Duration Peripheral 10/12/24 0530 [facility] Short Right Forearm 20 Gauge 12 days Dialysis / Apheresis Double Lumen 10/22/24 1932 [facility] Tunneled Right Subclavian 1 day Patient does not currently have any lines, drains or airways. 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 He also expressed a poor pain control on oxycodone.Patient follows withpain management as outpatient for pain associated with chest and abdominal wounds. He currently takes oxycodone 10 mg every 8 hours.Denied fevers or foul-smelling discharge from both wounds. Receiving wound care at home. 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 - Vascular surgery input appreciated -- no surgical intervention available. - S/P IR venoplast, placement of Right chest wall TDC - TDC should not be removed without consulting IR in this patient. Chest and abdomen ulcerations -- ischemic ulcers on biopsy - No overt evidence of infection, observing off abx - Evaluated by dermatology and s/p biopsy, continuing wound care in the meantime - Pain control with prn oxycodone, dilaudid for breakthrough, appreciate pain med input. Atrial fibrillation and severe mitral stenosis s/p mechanical mitral valve replacement with On-x valve (INR goal 2.5-3.5), Maze procedure and RADHA clip on 08/21/2021. - Cont heparin gtt to coumadin bridge ESRD on hemodialysis via RIGHT chest TDC on [facility] Hyperkalemia - Nephrology following and optimizing HD - Samnj + optimize bowel regimen. - Renal diet Anemia of ESRD -Hb at baseline(8.0-8.5) GERD -continue pantoprazole Obesity YEIMY on CPAP Secondary hyperparathyroidism -continue calcitriol, Cinacalcet, sevelamer Exogenous Class 2 Obesity Medication and Non-Pharmacologic VTE Prophylaxis/Anticoagulants Anticoagulant AND Antiplatelet Medications (From admission, onward) Start Dose Route Frequency Last Action Ordered Stop 10/24/24 1700 warfarin 5 mg tab(s) (COUMADIN) 5 mg ORAL ONCE - WARFARIN Ordered 10/24/24 0834 10/25/24 0459 10/22/24 2230 heparin iv infusion 25,000 units in NaCl 0.45% 250 mL STANDARD NOMOGRAM (Heparin Infusion + Bolus for Subtherapeutic PTTAC) 0-30 mL/hr Placed in And Linked Group 0-3,000 Units/hr INTRAVENOUS CONTINUOUS New Bag/Syringe/Bottle, 10/24 1153 10/22/24 2221 -- 10/12/24 1111 activity - mobilize patient (fl,oh) VTE Prophylaxis: VTE prophylaxis appropriate Disposition: SNF Plan of care discussed with Provider, RN, Patient Plan communicated to: Patient prefers to communicate with family. Luis Cui MD Associate Staff [address]/[place] [id number] Pager [phone] PT PNL PPP Collected: 10/24/2024 4:12 AM Status: F Source: [facility] Order Comment: Specimen Type : BLOOD SPECIMEN Ordering Facility: [facility] Address: [address] [place] [address] TYPE CODE TESTS RESULT OUT OF RANGE REFERENCE UNITS LAB 5902-2(LOINC) Prothrombin time 15.9 High 9.7-13.0 sec LAB 6301-6(LOINC) INR PPP 1.5 High 0.9-1.3 Result Comment: Vitamin K An tagonist (VKA) Therapeutic Range: INR 2 to 3 (Target INR of 2.5) Note: For patients treated with VKA drugs, such as warfarin, the [place] [employer] 2012 Guideline recommends a therapeutic INR range of 2 to 3 (target INR of 2.5). This recommendation includes high-risk patients with antiphospholipid syndrome with previous arterial or venous thromboembolism, current-generation mechanical or bioprosthetic aortic heart valve replacement. Note: Patients with mechanical aortic valve replacement and additional risk factors for thromboembolic events (atrial fibrillation, previous thromboembolism, LV dysfunction, hypercoagulable conditions) or an older generation mechanical AVR (i.e., ball in-Cage) or any mechanical MVR should have a INR therapeutic range of 2.5 to 3.5 (target INR of 3). Ranjit YOUSSEF, et al. Chest 2012, 141:7S-47S Kevin RA, et al. [facility] 2017, 70: 252-289 Performed By: #### 11869-0, PTTAC #### [facility] CLIA [id number] [address] [place] [address] [place] [address] [place] PTT, ANTICOAGULANT THERAPY Collected: 0 10/24/2024 4:12 AM Status: F Source: [facility] Order Comment: Specimen Type : BLOOD SPECIMEN Ordering Facility: [facility] Address: [address] [place] [id number] TYPE CODE TESTS RESULT OUT OF RANGE REFERENCE UNITS LAB 22928-1(LOINC) aPTT PPP 73.5 High 23.0-32.4 sec Performed By: #### 78526-9, PTTAC #### [facility] CLIA [id number] [address] [facility] [id number] [id number] [place] BAS METAB 2000 PNL SERPL Collected: 3:38 AM Status: F Source: [facility] Order Comment: Specimen Type : BLOOD SPECIMEN Ordering Facility: [facility] Address: [address] [place] [address] TYPE CODE TESTS RESULT OUT OF RANGE REFERENCE UNITS LAB 2345-7(LOINC) Glucose SerPl-mCnc 86 74-99 mg/dL Result Comment: The [place] Diabetes Association (ADA) provides guidance for cutoff values for fasting glucose and random glucose. The ADA defines fasting as no caloric intake for at least 8 hours. Fasting plasma glucose results between 100 to 125 mg/dL indicate increased risk for diabetes (prediabetes). Fasting plasma glucose results greater than or equal to 126 mg/dL meet the criteria for diagnosis of diabetes. In the absence of unequivocal hyperglycemia, results should be confirmed by repeat testing. In a patient with classic symptoms of hyperglycemia or hyperglycemic crisis, random plasma glucose results greater than or equal to 200 mg/dL meet the criteria for diagnosis of diabetes. Reference: Standards of Medical Care in Diabetes 2016, [place] Diabetes Association. Diabetes Care. 2016.39(Suppl 1). LAB 3094-0(LOINC) BUN SerPl-mCnc 32 High 9-24 mg/ dL LAB 2160-0(LOINC) Creat SerPl-mCnc 9.22 High 0.73-1.22 mg/dL LAB 2951-2(LOINC) Sodium SerPl-sCnc 135 Low 136-144 mmol/L LAB 2823-3(LOINC) Potassium SerPl-sCnc 5.6 High 3.7-5.1 mmol/L LAB 2075-0(LOINC) Chloride SerPl-sCnc 94 Low 98-107 mmol/L LAB 8-9(LOINC) CO2 SerPl-sCnc 25 22-30 mmo l/L LAB 54676-5(LOINC) Anion Gap SerPl-sCnc 16 High 8-15 mmol/L LAB 91780-2(LOINC) Calcium SerPl-mCnc 8.0 Low 8.5-10.2 mg/dL LAB 33887-9(LOINC) Creatinine + eGFR Pnl SerPlBld 7 Low >=60 mL/min/1 .73m??? Result Comment: Estimated Gl omerular Filtration Rate (eGFR) is calculated using the 2020 CKD-EPI creatinine equation. This equation utilizes serum creatinine, sex, and age as parameters. The creatinine assay has traceable calibration to isotope dilution-mass spectrometry. Refer to KDIGO guidelines for clinical interpretation. In patients with unstable renal function, e.g. those with acute kidney injury, the eGFR may not accurately reflect actual GFR. Performed By: #### 68999-4 # ### [facility] CLIA [id number] [address] [place] [address] [place] PTT, ANTICOAGULANT THERAPY Collected: 0 10/23/2024 8:43 PM Status: F Source: [facility] Order Comment: Specimen Type : BLOOD SPECIMEN Ordering Facility: [facility] Address: [address] [place] [address] TYPE CODE TESTS RESULT OUT OF RANGE REFERENCE UNITS LAB 68752-7(INC) aPTT PPP 60.7 High 23.0-32.4 sec Performed By: #### PTTAC ### # [facility] CLIA [id number] [address] [place] [address] [place] PROGRESS Observed: 10/23/2024 3:03 PM Status: COMPLETED Source: [facility] HNO ID: [id number] Author: LUIS CUI MD Service: General Internal Medicine Author Type: Physician Type: Progress Notes Filed: 10/23/2024 15:17 Note Text: DEPARTMENT OF HOSPITAL MEDICINE PROGRESS NOTE SERVICE DATE: 10/23/2024 SERVICE TIME: 3:06 PM Hospital Medicine/Primary Attending: Luis Cui MD NIGHT AND WEEKEND COVERAGE: [facility] COVERAGE: Days: [phone], please page Luis Cui for patient issues. Nights: [phone], please page Team GIM 1: G/H 8th floor: [address]; Non 8th floor [address] Subjective INTERVAL HPI: No acute events overnight HDS, RA Underwent venoplasty with Right sided TDC placement with IR yesterday This morning complaining of pain at catheter site insertion otherwise feeling ok. Labs reviewed Current Facility-Administered Medications Medication Dose Route Frequency NaCl 0.9% iv flush bag 20 mL INTRAVENOUS PRN dextrose 15 gram/32 mL 15 g (TRUEPLUS) 15 g ORAL PRN Or glucagon 1 mg injection 1 mg INTRAMUSCULAR PRN Or dextrose 10% iv bolus 12.5 g INTRAVENOUS PRN midodrine 20 mg tab(s) (PROAMATINE) 20 mg ORAL q [address] 40 mg tab(s) (PROTONIX) 40 mg ORAL DAILY acetaminophen 650 mg tab(s) (TYLENOL) 650 mg ORAL q 6 H PRN sevelamer carbonate 2,400 mg tab(s) (RENVELA) 2,400 mg ORAL TID w MEALS melatonin 9 mg tab(s) 9 mg ORAL DAILY (8 PM) calcitriol 1.5 mcg cap(s) (ROCALTROL) 1.5 mcg ORAL MO-WE- midodrine 20 mg tab(s) (PROAMATINE) 20 mg ORAL PRN DIALYSIS Darbepoetin Osito In Polysorbat 60 mcg injection (ARANESP) 60 mcg SUBCUTANEOUS q MON B Complex-Vitamin C-Folic Acid 1 tablet tab(s) (JOHNSON-VIT) 1 tablet ORAL DAILY cinacalcet 60 mg tab(s) (SENSIPAR) 60 mg ORAL DAILY polyethylene glycol 3350 17 g packet 17 g ORAL BID senna 8.6 mg tab(s) (SENOKOT) 8.6 mg ORAL AT BEDTIME bisacodyl EC 5 mg tab(s) (DULCOLAX) 5 mg ORAL DAILY oxyCODONE IR 5-10 mg tab(s) (ROXICODONE) 5-10 mg ORAL q 4 H PRN heparin iv infusion 25,000 units in NaCl 0.45% 250 mL STANDARD NOMOGRAM 0-3,000 Units/hr INTRAVENOUS CONTINUOUS And heparin RATE CHANGE bolus 1,000-10,000 Units for subtherapeutic PTTAC results 1,000-10,000 Units INTRAVENOUS PRN HYDROmorphone 0.5 mg injection (DILAUDID) 0.5 mg INTRAVENOUS q 6 H PRN warfarin 5 mg tab(s) (COUMADIN) 5 mg ORAL ONCE - WARFARIN warfarin order for discharge OTHER PRN Objective PHYSICAL EXAM: BP 95/52 Pulse 76 Temp (Src) 98.1 (Axillary) Resp 16 Ht 5' 9.685 (1.77m) Wt 249 lb 1.9 oz (113.0kg) SpO2 99% BMI 36.07 kg/(m2). O2 Therapy: BiLevel Positive Airway Pressure Physical Exam Performed AO 3 No distress Right sided TDC present Lungs with decreased breath sounds at bases. Normal S1/S2 Chest wall varices + Soft, non tender abdomen 1+ pedal edema Lines, Drains, and Airways Line Duration Peripheral 10/12/24 0530 [facility] Short Right Forearm 20 Gauge 11 days Dialysis / Apheresis Double Lumen 10/22/24 1932 [facility] Tunneled Right Subclavian <1 day Patient does not currently have any lines, drains or airways. 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 He also expressed a poor pain control on oxycodone.Patient follows withpain management as outpatient for pain associated with chest and abdominal wounds. He currently takes oxycodone 10 mg every 8 hours.Denied fevers or foul-smelling discharge from both wounds. Receiving wound care at home. 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 Personal history of DVT (deep vein thrombosis) PAF (paroxysmal atrial fibrillation) ([facility]) History of stroke Hypotension, chronic Anemia due to stage 5 chronic kidney disease, not on chronic dialysis ([facility]) ([facility]) Status post Maze operation for atrial fibrillation Skin ulcer, limited to breakdown of skin (HCC) SVC syndrome Generalized weakness Impaired functional mobility, balance, gait, and endurance Secondary hyperparathyroidism, renal (HCC) Ischemic ulcer with fat layer exposed (HCC) SVC syndrome-multiple right and left IJ catheters placed in past resulting in stenosis of central veins. - Vascular surgery input appreciated -- no surgical intervention available. - S/P IR venoplast, placement of Right chest wall TDC - TDC should not be removed without consulting IR in this patient. Chest and abdomen ulcerations -- ischemic ulcers on biopsy - No overt evidence of infection, observing off abx - Evaluated by dermatology and s/p biopsy, continuing wound care in the meantime - Pain control with prn oxycodone, dilaudid for breakthrough, appreciate pain med input. Atrial fibrillation and severe mitral stenosis s/p mechanical mitral valve replacement with On-x valve (INR goal 2.5-3.5), Maze procedure and RADHA clip on 08/21/2021. - Cont heparin gtt to coumadin bridge ESRD on hemodialysis via RIGHT chest TDC on [facility] Hyperkalemia - Nephrology following and optimizing HD - Samnj + optimize bowel regimen. - Renal diet Anemia of ESRD -Hb at baseline(8.0-8.5) GERD -continue pantoprazole Obesity YEIMY on CPAP Secondary hyperparathyroidism -continue calcitriol, Cinacalcet, sevelamer Exogenous Class 2 Obesity Medication and Non-Pharmacologic VTE Prophylaxis/Anticoagulants Anticoagulant AND Antiplatelet Medications (From admission, onward) Start Dose Route Frequency Last Action Ordered Stop 10/23/24 1700 warfarin 5 mg tab(s) (COUMADIN) 5 mg ORAL ONCE - WARFARIN Ordered 10/23/24 1503 10/24/24 0459 10/22/24 2230 heparin iv infusion 25,000 units in NaCl 0.45% 250 mL STANDARD NOMOGRAM (Heparin Infusion + Bolus for Subtherapeutic PTTAC) 0-30 mL/hr Placed in And Linked Group 0-3,000 Units/hr INTRAVENOUS CONTINUOUS New Bag/Syringe/Bottle, 10/23 1036 10/22/24 2221 -- 10/12/24 1111 activity - mobilize patient (fl,oh) VTE Prophylaxis: VTE prophylaxis appropriate Disposition: To be determined Plan of care discussed with Provider, RN, Patient Plan communicated to: Patient prefers to communicate with family. SIGNATURE: Luis Cui MD PATIENT NAME: Elia Weston DATE: October 23, 2024 TIME: 3:06 PM PTT, ANTICOAGULANT THERAPY Collected: 0 10/23/2024 1:29 PM Status: F Source: [facility] Order Comment: Specimen Type : BLOOD SPECIMEN Ordering Facility: [facility] Address: [address] [place] [address] TYPE CODE TESTS RESULT OUT OF RANGE REFERENCE UNITS LAB 45828-7(LOINC) aPTT PPP 64.1 High 23.0-32.4 sec Performed By: #### PTTAC ### # [facility] CLIA [id number] [address] [place] [address] [place] [address] [place] BAS METAB 2000 PNL SERPL Collected: 5:05 AM Status: F Source: [facility] Order Comment: Specimen Type : BLOOD SPECIMEN Ordering Facility: [facility] Address: [address] [place] [address] TYPE CODE TESTS RESULT OUT OF RANGE REFERENCE UNITS LAB 2345-7(LOINC) Glucose SerPl-mCnc 80 74-99 mg/dL Result Comment: The [place] Diabetes Association (ADA) provides guidance for cutoff values for fasting glucose and random glucose. The ADA defines fasting as no caloric intake for at least 8 hours. Fasting plasma glucose results between 100 to 125 mg/dL indicate increased risk for diabetes (prediabetes). Fasting plasma glucose results greater than or equal to 126 mg/dL meet the criteria for diagnosis of diabetes. In the absence of unequivocal hyperglycemia, results should be confirmed by repeat testing. In a patient with classic symptoms of hyperglycemia or hyperglycemic crisis, random plasma glucose results greater than or equal to 200 mg/dL meet the criteria for diagnosis of diabetes. Reference: Standards of Medical Care in Diabetes 2016, [place] Diabetes Association. Diabetes Care. 2016.39(Suppl 1). LAB 3094-0(LOINC) BUN SerPl-mCnc 22 9-24 mg/ dL LAB 2160-0(LOINC) Creat SerPl-mCnc 7.20 High 0.73-1.22 mg/dL LAB 2951-2(LOINC) Sodium SerPl-sCnc 135 Low 136-144 mmol/L LAB 2823-3(LOINC) Potassium SerPl-sCnc 5.0 3.7-5.1 mmol/L LAB 2075-0(LOINC) Chloride SerPl-sCnc 93 Low 98-107 mmol/L LAB 2027-9(LOINC) CO2 SerPl-sCnc 28 22-30 mmo l/L LAB 41892-1(LOINC) Anion Gap SerPl-sCnc 14 8-15 mmol/L LAB 48934-1(LOINC) Calcium SerPl-mCnc 8.3 Low 8.5-10.2 mg/dL LAB 23768-6(LOINC) Creatinine + eGFR Pnl SerPlBld 9 Low >=60 mL/min/1 .73m??? Result Comment: Estimated Gl omerular Filtration Rate (eGFR) is calculated using the 2020 CKD-EPI creatinine equation. This equation utilizes serum creatinine, sex, and age as parameters. The creatinine assay has traceable calibration to isotope dilution-mass spectrometry. Refer to KDIGO guidelines for clinical interpretation. In patients with unstable renal function, e.g. those with acute kidney injury, the eGFR may not accurately reflect actual GFR. Performed By: #### 15940-0 # ### [facility] CLIA [id number] [address] [place] [address] [place] [facility] CBC PNL BLD AUTO Collected: 5 5:05 AM Status: F Source: [facility] Order Comment: Specimen Type : BLOOD SPECIMEN Ordering Facility: [facility] Address: [address] [place] [address] TYPE CODE TESTS RESULT OUT OF RANGE REFERENCE UNITS LAB 6690-2(LOINC) WBC # Bld Auto 5.89 3.70-11.00 k/uL LAB 789-8(LOINC) RBC # Bld Auto 2.63 Low 4.20-6.00 m/uL LAB 718-7(LOINC) Hgb Bld-mCnc 7.4 Low 13.0-17.0 g/dL LAB 4544-3(LOINC) Hct VFr Bld Auto 25.1 Low 39.0-51.0 % LAB 787-2(LOINC) MCV RBC Auto 95.4 80.0-100.0 fL LAB 785-6(LOINC) MCH RBC Qn Auto 28.1 26.0-34.0 pg LAB 786-4(LOINC) MCHC RBC Auto-mCnc 29.5 Low 30.5-36.0 g/dL LAB 25154-8(LOINC) RDW RBC-Rto 19.2 High 11.5-15.0 % LAB 777-3(LOINC) Platelet # Bld Auto 205 150-400 k/uL LAB 16244-4(LOINC) PMV Bld Auto 11.4 9.0-12.7 fL LAB 771-6(LOINC) nRBC # Bld Auto <0.01 <0.01 k/uL Performed By: #### 50022-3 # ### [facility] CLIA [id number] [address] [place] [address] PT PNL PPP Collected: 10/23/2024 5:04 AM Status: F Source: [facility] Order Comment: Specimen Type : BLOOD SPECIMEN Ordering Facility: [facility] Address: [address] [place] [address] TYPE CODE TESTS RESULT OUT OF RANGE REFERENCE UNITS LAB 5902-2([facility]) Prothrombin time 16.4 High 9.7-13.0 sec LAB 6301-6([facility]) INR PPP 1.6 High 0.9-1.3 Result Comment: Vitamin K An tagonist (VKA) Therapeutic Range: INR 2 to 3 (Target INR of 2.5) Note: For patients treated with VKA drugs, such as warfarin, the [place] [employer]icians 2012 Guideline recommends a therapeutic INR range of 2 to 3 (target INR of 2.5). This recommendation includes high-risk patients with antiphospholipid syndrome with previous arterial or venous thromboembolism, current-generation mechanical or bioprosthetic aortic heart valve replacement. Note: Patients with mechanical aortic valve replacement and additional risk factors for thromboembolic events (atrial fibrillation, previous thromboembolism, LV dysfunction, hypercoagulable conditions) or an older generation mechanical AVR (i.e., ball in-Cage) or any mechanical MVR should have a INR therapeutic range of 2.5 to 3.5 (target INR of 3). Ranjit GH, et al. Chest 2012, 141:7S-47S Kevin RA, et al. JACC 2017, 70: 252-289 Performed By: #### PTTAC, 34 528-0 #### [facility] CLIA [id number] [address] [place] [address] OF [facility] PTT, ANTICOAGULANT THERAPY Collected: 0 10/23/2024 5:04 AM Status: F Source: [facility] Order Comment: Specimen Type : BLOOD SPECIMEN Ordering Facility: [facility] Address: [address] [place] [address] TYPE CODE TESTS RESULT OUT OF RANGE REFERENCE UNITS LAB 92908-2([facility]) aPTT PPP 51.6 High 23.0-32.4 sec Performed By: #### PTTAC, 34 528-0 #### [facility] CLIA [id number] [address] [place] [address] [place] CBC PNL BLD AUTO Collected: 11:00 PM Status: F Source: [facility] Order Comment: Specimen Type : BLOOD SPECIMEN Ordering Facility: [facility] Address: [address] [place] [address] TYPE CODE TESTS RESULT OUT OF RANGE REFERENCE UNITS LAB 6690-2(LOINC) WBC # Bld Auto 5.75 3.70-11.00 k/uL LAB 789-8(LOINC) RBC # Bld Auto 3.05 Low 4.20-6.00 m/uL LAB 718-7(LOINC) Hgb Bld-mCnc 8.8 Low 13.0-17.0 g/dL LAB 4544-3(LOINC) Hct VFr Bld Auto 28.3 Low 39.0-51.0 % LAB 787-2(LOINC) MCV RBC Auto 92.8 80.0-100.0 fL LAB 785-6(LOINC) MCH RBC Qn Auto 28.9 26.0-34.0 pg LAB 786-4(LOINC) MCHC RBC Auto-mCnc 31.1 30.5-36.0 g/dL LAB 06113-8(LOINC) RDW RBC-Rto 19.0 High 11.5-15.0 % LAB 777-3(LOINC) Platelet # Bld Auto 184 150-400 k/uL LAB 63557-7([facility]) PMV Bld Auto 10.6 9.0-12.7 fL LAB 771-6([facility]) nRBC # Bld Auto <0.01 <0.01 k/uL Performed By: #### 28528-5 # ### [facility] CLIA [id number] [address] [place] [address] [place] PT PNL PPP Collected: 5 11:00 PM Status: F Source: [facility] Order Comment: Specimen Type : BLOOD SPECIMEN Ordering Facility: [facility] Address: [address] [place] [address] TYPE CODE TESTS RESULT OUT OF RANGE REFERENCE UNITS LAB 5902-2([facility]) Prothrombin time 16.2 High 9.7-13.0 sec LAB 6301-6([facility]) INR PPP 1.5 High 0.9-1.3 Result Comment: Vitamin K An tagonist (VKA) Therapeutic Range: INR 2 to 3 (Target INR of 2.5) Note: For patients treated with VKA drugs, such as warfarin, the [place] [employer] 2012 Guideline recommends a therapeutic INR range of 2 to 3 (target INR of 2.5). This recommendation includes high-risk patients with antiphospholipid syndrome with previous arterial or venous thromboembolism, current-generation mechanical or bioprosthetic aortic heart valve replacement. Note: Patients with mechanical aortic valve replacement and additional risk factors for thromboembolic events (atrial fibrillation, previous thromboembolism, LV dysfunction, hypercoagulable conditions) or an older generation mechanical AVR (i.e., ball in-Cage) or any mechanical MVR should have a INR therapeutic range of 2.5 to 3.5 (target INR of 3). Ranjit GH, et al. Chest 2012, 141:7S-47S Kevin RA, et al. JACC 2017, 70: 252-289 Performed By: #### 84121-7, 20963-4 #### [facility] CLIA [id number] [address] [place] [address] [place] APTT PPP Collected: 5 11:00 PM Status: F Source: [facility] Order Comment: Specimen Type : BLOOD SPECIMEN Ordering Facility: [facility] Address: [address] [place] [address] TYPE CODE TESTS RESULT OUT OF RANGE REFERENCE UNITS LAB 72298-2(LOINC) aPTT PPP 37.7 High 23.0-32.4 sec Performed By: #### 06278-9, 17875-7 #### [facility] CLIA [id number] [address] [place] [address] [place] AN[place] POSTPROC EVAL Observed: 10/22/2024 7:36 PM Status: COMPLETED Source: [facility] HNO ID: [id number] Author: Nikhil BELL MD Service: ? Author Type: Anesthesiologist Type: Anesthesia Postprocedure Evaluation Filed: 10/22/2024 19:36 Note Text: POST ANESTHESIA EVALUATION NOTE : 1980 Procedure Summary Date: 10/22/24 Room / Location: [facility] GB-026 / [facility] HB6 Anesthesia Start: 1605 Anesthesia Stop: 1922 Procedure: VENOGRAM SUPERIOR VENA CAVA RADIOLOGICAL Diagnosis: Dialysis patient (HCC) (Dialysis patient (HCC) [Z99.2]) Surgeons: Jyoti Issa MD Responsible Provider: Nikhil Bell MD Anesthesia Type: general ASA Status: 3 Anesthesia Type: general Airway Type: ETT Last Vitals Vitals Value Taken Time BP 111/66 10/22/24 1930 Temp 36.9 ?C (98.4 ?F) 10/22/241922 Pulse 84 10/22/241933 Resp 12 10/22/241922 SpO2 98 % 10/22/241933 Vitals shown include unfiled device data. Post Anesthesia Patient Status Patient Evaluation: bedside. Neurological Status: aware and responsive. Pulmonary Status: breathing comfortably on supplemental oxygen Airway Control: returned to baseline unsupported. Cardiovascular Status: stable. Pain Management: clinically adequate Postoperative Hydration: acceptable. Intraoperative Events: no significant anesthesia events Post Operative Nausea/Vomiting Status: no significant post operative nausea or vomiting Recommendation: continue current plan of care. Anesthesia Observations No Documentation SIGNATURE: Nikhil Bell MD PATIENT NAME: Elia Weston DATE: October 22, 2024 TIME: 7:36 PM CSN: [id number] BRIEF OP NOT Observed: 10/22/2024 6:57 PM Status: COMPLETED Source: [facility] HNO ID: [id number] Author: JYOTI ISSA MD Service: Radiology Author Type: Physician Type: Brief Op Note Filed: 10/22/2024 19:01 Note Text: BRIEF OPERATIVE / PROCEDURE NOTE LOG ID: [id number] SURGERY/PROCEDURE DATE: 10/22/2024 INCISION/PROCEDURE START TIME: 5:11 PM INCISION CLOSE/PROCEDURE END TIME: 6:52 PM SURGEON(S)/PROCEDURALIST(S) AND FIBER LOCKING SUPERVISOR(S): Surgeons and Role: * Jyoti Issa MD - Primary No Additional Staff SURGERY/PROCEDURE(S): RT CENTRAL VENOGRAM/ VENOPLASTY / LORENA REMOVAL / TDC PLACEMENT, LT GROIN TDC REMOVAL ANESTHESIA: Choice - Anesthesia Consult FINDINGS: Occlusive distal / Supra Azygous SVC stenosis , dilated to 6 and 8 mm, Existing lorena was removed and followed with TDC insertion via same access following venoplasty. RT chest TDC ok for use. LT femoral TDC was removed. Hemostasis achived with manula pressure. Exhausted SD central venous access, pls consult IR for any line related issues. ESTIMATED BLOOD LOSS: < 30 mls SPECIMENS: None COMPLICATIONS: None IMPLANTS: * No implants in log * CLOSURE TECHNIQUE: Primary PRE-OP/PRE-PROCEDURE DIAGNOSIS: ESRD , SVC OCCLUSION POST-OP/POST-PROCEDURE DIAGNOSIS: Same as Preop Patient was accompanied to the next level of care by a licensed practitioner from the surgical team pending completion of this brief op note (or operative note) SIGNATURE: Jyoti Issa MD PATIENT NAME: Elia Weston DATE: October 22, 2024 TIME: 6:57 PM IR CENTRAL CATH PLACEMENT Observed: 09/30 6:52 PM Status: F Source: [facility] * * *Final Report* * * DATE OF EXAM: Oct 22 2024 6:52PM [facility] 8020 - IR CENTRAL CATH PLACEMENT / PROCEDURE REASON: . * * * * Physician Interpretation * * * * PROCEDURE: RIGHT CENTRAL VENOGRAM, RIGHT CENTRAL AND SVC VENOPLASTY; RIGHT CHEST WALL PORT REMOVAL; RIGHT CHEST WALL TDC PLACEMENT; LEFT FEMORAL TDC Procedural Personnel Attending physician(s): Jyoti Issa M.D. Fellow physician(s): None Resident physician(s): None Advanced practice provider(s): None Medical Student(s): None Pre-procedure diagnosis: End-stage renal disease/exhausted supradiaphragmatic venous access Post-procedure diagnosis: Same Indication(s): Other-attempt for exchanging of tunneled dialysis catheter from femoral access to supradiaphragmatic/chest wall access Additional clinical history: 44 year old male with hx of ESRD, anuric on iHD, MS s/p mechanical valve replacement on warfarin, Atrial fibrillation, Anemia of chronic disease, Obesity, BMI >35, HTN, Bacterial endocarditis with staph aureus,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 Currently patient has a left femoral TDC, patient is status recent SVC recanalization via a right side and insertion of a Lorena catheter. CT venogram demonstrates bilateral subclavian vein occlusion, bilateral brachiocephalic vein stenosis and occlusive supra azygos SVC stenosis. Considering the anatomic location of stenotic segments not a candidate for stenting. The patient presents for attempt for exchange of femoral TDC 40 chest wall TDC. PROCEDURE SUMMARY: -Right central venogram -Right brachiocephalic vein and SVC venoplasty - Tunneled central venous catheter exchange with fluoroscopic guidance - Additional procedure(s): Right femoral tunneled dialysis catheter removal PROCEDURE DETAILS: Pre-procedure Consent: Risks, benefits, treatment options, potential complications and personnel to be involved were discussed (including the risks of radiation exposure, contrast and anesthesia administration, and any equipment needed for the procedure to ensure best possible outcome) with the patient and all questions were answered and consent was obtained prior to procedure. Premedicated for contrast allergy: n/a Transfusion of blood products: No Medication reconciliation: The patient's medications and allergies were reviewed in the electronic medical record and reconciled to the proposed procedure/treatment. Skye-procedure discussion: The appropriate elements of the pre-procedure discussion, safety check list and sign-out were performed. Time out: A time out was performed immediately prior to procedure start with the nursing and interventional team, correctly identifying the name, date of , procedure, anatomy (including marking of site and side if applicable), patient position, procedure consent form, relevant diagnostic and radiology test results, antibiotic administration if applicable, safety precautions, and procedure-specific equipment needs. Start of procedure: 1717 End of procedure: 1851 Patient position: Supine Preparation (MIPS): The site was prepared and draped using all elements of maximal sterile barrier technique including sterile gloves, sterile gown, cap, mask, large sterile sheet, sterile ultrasound probe cover, hand hygiene and cutaneous antisepsis with 2% chlorhexidine. Medical reason for site preparation exception (MIPS): Not applicable Antibiotics: Cefazolin Antibiotic infusion start time: 162 Prophylactic antibiotic administered: Within 1 hour of procedure start time or 2 hours for vancomycin or fluoroquinolones Additional med: None Additional med: None Contrast Contrast agent: OMNIPAQUE 240 Contrast volume (mL): 30 Image Guidance Fluoroscopic guidance. Radiation Dose Plane A, Air Kerma: 316.4 mGy Dose Area Product (DAP): Fluoro Time: 25:54 min:sec Radiation dose exceed 5 Gy: No If radiation dose exceeded 5 Gy, was counseling and instructional brochure provided: N/A Anesthesia/sedation Level of anesthesia/sedation: General anesthesia Anesthesia/sedation administered by: Anesthesiology Total intra-service sedation time (minutes): N/A Local anesthesia: 2 % lidocaine Access Existing. A right supraclavicular vein Technique: Local anesthesia was administered. The existing Lorena was occluded to the mid level of the catheter hub. Catheter was trimmed in small portions until a patent lumen could be identified. Through the catheter. The catheter was removed over the wire. A vascular sheath was placed. Central venogram was performed. The right brachiocephalic and SVC were dilated gradually in multiple episodes starting with 6 mm (6 mm x 40 mm MUSTANG and CONQUEST angioplasty balloon) and then 8 mm (8 mm x 40 mm MUSTANG and CONQUEST angioplasty balloon). After multiple dilatations, the occluded segment in the SVC finally complete balloon inflation could be achieved entire segment. A subcutaneous tunnel was made into the venotomy site. The catheter was advanced through the peel-away sheath over the wire to ensure advancing through the stenotic segment into the right atrium. Catheter tip location was fluoroscopically verified and a permanent image was stored. Catheter placed: 27 cm 14.5 F Bard Glidepath hemodialysis catheter Catheter flush: Citrate Closure A sterile dressing was applied. Access site closure technique: Absorbable suture and tissue adhesive Catheter securement technique: Non-absorbable suture Venography Indication for venography: Diagnostic angiography - There was no prior catheter-based angiographic study available and a full diagnostic study was performed. The decision to intervene was based on the diagnostic study. 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 The suture holding the catheter was severed and catheter was removed with gentle traction after blunt dissection. Hemostasis was achieved with manual compression. Sterile dressing(s) applied. Additional Details Additional description of procedure: None Equipment details: None Number and Type of Removed Specimens: 0: N/A Estimated blood loss (mL): Less than 10 Standardized report: [email or web address] Complications There were no immediate complications and no other complications. Conclusion The patient was extubated and was transferred to the PACU in stable condition. The procedure was performed by the: attending radiologist, with an mechanic assistant. 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 Exchange of right-sided single-lumen tunneled LORENA catheter for a right-sided tunneled dual lumen dialysis catheter following central venoplasty, with tip in the expected location of the RIGHT ATRIUM, as detailed above. Removal of the left femoral tunneled dialysis catheter. PLAN: The hemodialysis catheter may be used immediately. Exhausted supradiaphragmatic access and recanalized right innominate and SVC. IR should be consulted for future central venous catheter issues. Attestation Signer name: Jyoti Issa MD I attest that I was present for the entire procedure. I reviewed the stored images and agree with the report as written. Residential Driver: AZAM Transcribe Date/Time: Oct 22 2024 7:02P Dictated by : JYOTI ISSA MD This examination was interpreted and the report reviewed and electronically signed by: JYOTI ISSA MD on Oct 22 2024 7:36PM EST [id number] IR PLASTY ONLY CENTRAL DIALYSIS Observed : 10/22/2024 6:52 PM Status: F Source: [facility] * * *Final Report* * * DATE OF EXAM: Oct 22 2024 6:52PM [facility] 0608 - IR PLASTY ONLY CENTRAL DIALYSIS / PROCEDURE REASON: . * * * * Physician Interpretation * * * * PROCEDURE: RIGHT CENTRAL VENOGRAM, RIGHT CENTRAL AND SVC VENOPLASTY; RIGHT CHEST WALL PORT REMOVAL; RIGHT CHEST WALL TDC PLACEMENT; LEFT FEMORAL TDC Procedural Personnel Attending physician(s): Jyoti Isas M.D. Fellow physician(s): None Resident physician(s): None Advanced practice provider(s): None Medical Student(s): None Pre-procedure diagnosis: End-stage renal disease/exhausted supradiaphragmatic venous access Post-procedure diagnosis: Same Indication(s): Other-attempt for exchanging of tunneled dialysis catheter from femoral access to supradiaphragmatic/chest wall access Additional clinical history: 44 year old male with hx of ESRD, anuric on iHD, MS s/p mechanical valve replacement on warfarin, Atrial fibrillation, Anemia of chronic disease, Obesity, BMI >35, HTN, Bacterial endocarditis with staph aureus,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 Currently patient has a left femoral TDC, patient is status recent SVC recanalization via a right side and insertion of a Lorena catheter. CT venogram demonstrates bilateral subclavian vein occlusion, bilateral brachiocephalic vein stenosis and occlusive supra azygos SVC stenosis. Considering the anatomic location of stenotic segments not a candidate for stenting. The patient presents for attempt for exchange of femoral TDC 40 chest wall TDC. PROCEDURE SUMMARY: -Right central venogram -Right brachiocephalic vein and SVC venoplasty - Tunneled central venous catheter exchange with fluoroscopic guidance - Additional procedure(s): Right femoral tunneled dialysis catheter removal PROCEDURE DETAILS: Pre-procedure Consent: Risks, benefits, treatment options, potential complications and personnel to be involved were discussed (including the risks of radiation exposure, contrast and anesthesia administration, and any equipment needed for the procedure to ensure best possible outcome) with the patient and all questions were answered and consent was obtained prior to procedure. Premedicated for contrast allergy: n/a Transfusion of blood products: No Medication reconciliation: The patient's medications and allergies were reviewed in the electronic medical record and reconciled to the proposed procedure/treatment. Skye-procedure discussion: The appropriate elements of the pre-procedure discussion, safety check list and sign-out were performed. Time out: A time out was performed immediately prior to procedure start with the nursing and interventional team, correctly identifying the name, date of , procedure, anatomy (including marking of site and side if applicable), patient position, procedure consent form, relevant diagnostic and radiology test results, antibiotic administration if applicable, safety precautions, and procedure-specific equipment needs. Start of procedure: 1717 End of procedure: 1851 Patient position: Supine Preparation (MIPS): The site was prepared and draped using all elements of maximal sterile barrier technique including sterile gloves, sterile gown, cap, mask, large sterile sheet, sterile ultrasound probe cover, hand hygiene and cutaneous antisepsis with 2% chlorhexidine. Medical reason for site preparation exception (MIPS): Not applicable Antibiotics: Cefazolin Antibiotic infusion start time: 1620 Prophylactic antibiotic administered: Within 1 hour of procedure start time or 2 hours for vancomycin or fluoroquinolones Additional med: None Additional med: None Contrast Contrast agent: OMNIPAQUE 240 Contrast volume (mL): 30 Image Guidance Fluoroscopic guidance. Radiation Dose Plane A, Air Kerma: 316.4 mGy Dose Area Product (DAP): Fluoro Time: 25:54 min:sec Radiation dose exceed 5 Gy: No If radiation dose exceeded 5 Gy, was counseling and instructional brochure provided: N/A Anesthesia/sedation Level of anesthesia/sedation: General anesthesia Anesthesia/sedation administered by: Anesthesiology Total intra-service sedation time (minutes): N/A Local anesthesia: 2 % lidocaine Access Existing. A right supraclavicular vein Technique: Local anesthesia was administered. The existing Lorena was occluded to the mid level of the catheter hub. Catheter was trimmed in small portions until a patent lumen could be identified. Through the catheter. The catheter was removed over the wire. A vascular sheath was placed. Central venogram was performed. The right brachiocephalic and SVC were dilated gradually in multiple episodes starting with 6 mm (6 mm x 40 mm MUSTANG and CONQUEST angioplasty balloon) and then 8 mm (8 mm x 40 mm MUSTANG and CONQUEST angioplasty balloon). After multiple dilatations, the occluded segment in the SVC finally complete balloon inflation could be achieved entire segment. A subcutaneous tunnel was made into the venotomy site. The catheter was advanced through the peel-away sheath over the wire to ensure advancing through the stenotic segment into the right atrium. Catheter tip location was fluoroscopically verified and a permanent image was stored. Catheter placed: 27 cm 14.5 F Bard Glidepath hemodialysis catheter Catheter flush: Citrate Closure A sterile dressing was applied. Access site closure technique: Absorbable suture and tissue adhesive Catheter securement technique: Non-absorbable suture Venography Indication for venography: Diagnostic angiography - There was no prior catheter-based angiographic study available and a full diagnostic study was performed. The decision to intervene was based on the diagnostic study. 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 The suture holding the catheter was severed and catheter was removed with gentle traction after blunt dissection. Hemostasis was achieved with manual compression. Sterile dressing(s) applied. Additional Details Additional description of procedure: None Equipment details: None Number and Type of Removed Specimens: 0: N/A Estimated blood loss (mL): Less than 10 Standardized report: [email or web address] Complications There were no immediate complications and no other complications. Conclusion The patient was extubated and was transferred to the PACU in stable condition. The procedure was performed by the: attending radiologist, with an mechanic assistant. 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 Exchange of right-sided single-lumen tunneled LORENA catheter for a right-sided tunneled dual lumen dialysis catheter following central venoplasty, with tip in the expected location of the RIGHT ATRIUM, as detailed above. Removal of the left femoral tunneled dialysis catheter. PLAN: The hemodialysis catheter may be used immediately. Exhausted supradiaphragmatic access and recanalized right innominate and SVC. IR should be consulted for future central venous catheter issues. Attestation Signer name: Jyoti Issa MD I attest that I was present for the entire procedure. I reviewed the stored images and agree with the report as written. Residential Driver: AZAM Transcribe Date/Time: Oct 22 2024 7:02P Dictated by : JYOTI ISSA MD This examination was interpreted and the report reviewed and electronically signed by: JYOTI ISSA MD on Oct 22 2024 7:36PM EST IR VEIN PLASTY NON-AVF INIT Observed: 6:52 PM Status: F Source: [facility] * * *Final Report* * * DATE OF EXAM: Oct 22 2024 6:52PM [facility] 0613 - IR VEIN PLASTY NON-AVF INIT / PROCEDURE REASON: . * * * * Physician Interpretation * * * * PROCEDURE: RIGHT CENTRAL VENOGRAM, RIGHT CENTRAL AND SVC VENOPLASTY; RIGHT CHEST WALL PORT REMOVAL; RIGHT CHEST WALL TDC PLACEMENT; LEFT FEMORAL TDC Procedural Personnel Attending physician(s): Jyoti Issa M.D. Fellow physician(s): None Resident physician(s): None Advanced practice provider(s): None Medical Student(s): None Pre-procedure diagnosis: End-stage renal disease/exhausted supradiaphragmatic venous access Post-procedure diagnosis: Same Indication(s): Other-attempt for exchanging of tunneled dialysis catheter from femoral access to supradiaphragmatic/chest wall access Additional clinical history: 44 year old male with hx of ESRD, anuric on iHD, MS s/p mechanical valve replacement on warfarin, Atrial fibrillation, Anemia of chronic disease, Obesity, BMI >35, HTN, Bacterial endocarditis with staph aureus,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 Currently patient has a left femoral TDC, patient is status recent SVC recanalization via a right side and insertion of a Lorena catheter. CT venogram demonstrates bilateral subclavian vein occlusion, bilateral brachiocephalic vein stenosis and occlusive supra azygos SVC stenosis. Considering the anatomic location of stenotic segments not a candidate for stenting. The patient presents for attempt for exchange of femoral TDC 40 chest wall TDC. PROCEDURE SUMMARY: -Right central venogram -Right brachiocephalic vein and SVC venoplasty - Tunneled central venous catheter exchange with fluoroscopic guidance - Additional procedure(s): Right femoral tunneled dialysis catheter removal PROCEDURE DETAILS: Pre-procedure Consent: Risks, benefits, treatment options, potential complications and personnel to be involved were discussed (including the risks of radiation exposure, contrast and anesthesia administration, and any equipment needed for the procedure to ensure best possible outcome) with the patient and all questions were answered and consent was obtained prior to procedure. Premedicated for contrast allergy: n/a Transfusion of blood products: No Medication reconciliation: The patient's medications and allergies were reviewed in the electronic medical record and reconciled to the proposed procedure/treatment. Skye-procedure discussion: The appropriate elements of the pre-procedure discussion, safety check list and sign-out were performed. Time out: A time out was performed immediately prior to procedure start with the nursing and interventional team, correctly identifying the name, date of , procedure, anatomy (including marking of site and side if applicable), patient position, procedure consent form, relevant diagnostic and radiology test results, antibiotic administration if applicable, safety precautions, and procedure-specific equipment needs. Start of procedure: 1717 End of procedure: 1851 Patient position: Supine Preparation (MIPS): The site was prepared and draped using all elements of maximal sterile barrier technique including sterile gloves, sterile gown, cap, mask, large sterile sheet, sterile ultrasound probe cover, hand hygiene and cutaneous antisepsis with 2% chlorhexidine. Medical reason for site preparation exception (MIPS): Not applicable Antibiotics: Cefazolin Antibiotic infusion start time: 1621 Prophylactic antibiotic administered: Within 1 hour of procedure start time or 2 hours for vancomycin or fluoroquinolones Additional med: None Additional med: None Contrast Contrast agent: OMNIPAQUE 240 Contrast volume (mL): 30 Image Guidance Fluoroscopic guidance. Radiation Dose Plane A, Air Kerma: 316.4 mGy Dose Area Product (DAP): Fluoro Time: 25:54 min:sec Radiation dose exceed 5 Gy: No If radiation dose exceeded 5 Gy, was counseling and instructional brochure provided: N/A Anesthesia/sedation Level of anesthesia/sedation: General anesthesia Anesthesia/sedation administered by: Anesthesiology Total intra-service sedation time (minutes): N/A Local anesthesia: 2 % lidocaine Access Existing. A right supraclavicular vein Technique: Local anesthesia was administered. The existing Lorena was occluded to the mid level of the catheter hub. Catheter was trimmed in small portions until a patent lumen could be identified. Through the catheter. The catheter was removed over the wire. A vascular sheath was placed. Central venogram was performed. The right brachiocephalic and SVC were dilated gradually in multiple episodes starting with 6 mm (6 mm x 40 mm MUSTANG and CONQUEST angioplasty balloon) and then 8 mm (8 mm x 40 mm MUSTANG and CONQUEST angioplasty balloon). After multiple dilatations, the occluded segment in the SVC finally complete balloon inflation could be achieved entire segment. A subcutaneous tunnel was made into the venotomy site. The catheter was advanced through the peel-away sheath over the wire to ensure advancing through the stenotic segment into the right atrium. Catheter tip location was fluoroscopically verified and a permanent image was stored. Catheter placed: 27 cm 14.5 F Bard Glidepath hemodialysis catheter Catheter flush: Citrate Closure A sterile dressing was applied. Access site closure technique: Absorbable suture and tissue adhesive Catheter securement technique: Non-absorbable suture Venography Indication for venography: Diagnostic angiography - There was no prior catheter-based angiographic study available and a full diagnostic study was performed. The decision to intervene was based on the diagnostic study. 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 The suture holding the catheter was severed and catheter was removed with gentle traction after blunt dissection. Hemostasis was achieved with manual compression. Sterile dressing(s) applied. Additional Details Additional description of procedure: None Equipment details: None Number and Type of Removed Specimens: 0: N/A Estimated blood loss (mL): Less than 10 Standardized report: [email or web address] Complications There were no immediate complications and no other complications. Conclusion The patient was extubated and was transferred to the PACU in stable condition. The procedure was performed by the: attending radiologist, with an mechanic assistant. 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 Exchange of right-sided single-lumen tunneled LORENA catheter for a right-sided tunneled dual lumen dialysis catheter following central venoplasty, with tip in the expected location of the RIGHT ATRIUM, as detailed above. Removal of the left femoral tunneled dialysis catheter. PLAN: The hemodialysis catheter may be used immediately. Exhausted supradiaphragmatic access and recanalized right innominate and SVC. IR should be consulted for future central venous catheter issues. Attestation Signer name: Jyoti Issa MD I attest that I was present for the entire procedure. I reviewed the stored images and agree with the report as written. Residential Driver: PSCB Transcribe Date/Time: Oct 22 2024 7:02P Dictated by : JYOTI ISSA MD This examination was interpreted and the report reviewed and electronically signed by: JYOTI ISSA MD on Oct 22 2024 7:36PM EST ANES PROCEDURE NOTE Observed: 10/22/2024 5:00 PM Status: COMPLETED Source: [facility] HNO ID: [id number] Author: DANNY BEASLEY APRN.FLIGHT SOFTWARE TEST ENGINEER Service: ? 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 Staffing FLIGHT SOFTWARE TEST ENGINEER: Danny Beasley APRN.FLIGHT SOFTWARE TEST ENGINEER Performed by: FLIGHT SOFTWARE TEST ENGINEER Indications and Patient Condition Indications for airway management: anesthesia Preoxygenated: yes anesthesia circuit Patient position: ramp Method: asleep Cricoid Pressure: No Manual In-Line Stabilization: No Difficult Mask: No Final Airway Details Final airway type: endotracheal airway Final Endotracheal Airway: ETT Cuffed: yes Successful intubation technique: video laryngoscopy Devices used: Anturis Endotracheal tube insertion site: oral Blade: Raquel Blade size: #4 ETT size (mm): 7.5 Measured from: lips Measurement (cm): 23 Placement verified by: chest auscultation and capnometry Cormack-Lehane Classification: grade I - full view of glottis Number of attempts at approach: 1 Ventilation between attempts: none Failed airway: no Unrecognized esophageal intubation: no Airway not difficult SIGNATURE: Danny Beasley APRN.FLIGHT SOFTWARE TEST ENGINEER PATIENT NAME: Elia Weston DATE: October 22, 2024 TIME: 5:00 PM CSN: [id number] ANES PRE-OP Observed: 10/22/2024 3:58 PM Status: COMPLETED Source: [facility] ID: [id number] Author: Nikhil BELL MD Service: ? Author Type: Anesthesiologist Type: Anesthesia Preprocedure Evaluation Filed: 10/22/2024 15:59 Note Text: ANESTHESIOLOGY DAY OF SURGERY NOTE : 1980 Procedure Information Date/Time: 10/22/24 1210 Procedure: VENOGRAM SUPERIOR VENA CAVA RADIOLOGICAL - RESITING TDC TO RCW +/- SVC RECAN Location: ANGIO GB-026 / ANGIO HB6 Surgeons: Jyoti Issa MD Estimated body mass index is 36.07 kg/m? as calculated from the following: Height as of this encounter: 177 cm (5' 9.69). Weight as of this encounter: 113 kg (249 lb 1.9 oz). Most recent hematocrit and potassium results: Hematocrit 27.6 10/22/2024 Hematocrit (POCT) 28 06/29/2023 Potassium 6.2 10/22/2024 Potassium (POCT) 6.4 06/29/2023 Relevant Problems ANESTHESIA (+) YEIMY (obstructive sleep apnea) CARDIO (+) A-V fistula ([facility]) (+) Acquired stenosis of superior vena cava (+) Arteriovenous graft stenosis, sequela (+) Atrial fibrillation ([facility]) (+) CHB (complete heart block) ([facility]) (+) Clotted renal dialysis AV graft ([facility]) (+) Essential hypertension, benign (+) HTN (hypertension) (+) Intra-abdominal varices (+) Jugular vein occlusion, bilateral ([facility]) (+) Myocardial infarction ([facility]) (+) PAF (paroxysmal atrial fibrillation) ([facility]) (+) Paroxysmal atrial flutter ([facility]) (+) Pulmonary embolism ([facility]) (+) SVC syndrome (+) Stenosis of other vascular prosthetic devices, implants and grafts, initial encounter ([facility]) (+) 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 of procedure (+) Unspecified atherosclerosis of [place] arteries of extremities, right leg ([facility]) (+) Venous collateral circulation ENDO (+) Acquired hypothyroidism (+) Hypothyroidism -RENAL (+) Anemia due to chronic kidney disease, on chronic dialysis ([facility]) (+) Anemia of renal disease (+) Dialysis patient ([facility]) (+) ESRD (end stage renal disease) ([facility]) (+) ESRD (end stage renal disease) on dialysis ([facility]) (+) End-stage renal disease on hemodialysis ([facility]) (+) Renal osteodystrophy NEURO-PSYCH (+) History of endocarditis (+) History of non-ST elevation myocardial infarction (NSTEMI) (+) History of stroke (+) Personal history of DVT (deep vein thrombosis) PULMONARY (+) YEIMY (obstructive sleep apnea) I - PHYSICAL EVALUATION AIRWAY Patient intubated: No. Tracheostomy tube not present Mallampati: III. TM distance: >3 FB. Neck ROM: full ROM without neurological symptoms. Mouth opening: adequate. Short neck: no. Thick neck: no II - ANESTHESIA PLAN ASA Score: 3 Anesthetic Plan: general Airway type: ETT NPO Status: adequate Beta Zbigniew Monitoring Plan Monitoring plan: standard ASA. Post Procedure Analgesic Plan Postoperative analgesic plan: multimodal analgesia. Informed Consent Anesthetic risks, benefits, alternatives, personnel and consent discussed: yes. Patient / Responsible Democrat agrees to proceed: yes Patient / Surrogate agrees to blood products: Yes Significant changes in the patient condition since the History and Physical, not otherwise documented in primary service progress note: no. Potential Anesthesia issues that may suggest increased risk of complications or contraindication to planned procedure: none. Vitals Value Taken Time BP 129/85 10/22/24 1511 Pulse 78 10/22/24 1511 Resp 20 10/22/24 1511 Temp SpO2 99 % 10/22/24 1511 Facility-Administered Medications as of 10/22/2024 Medication Dose Route Frequency bisacodyl EC 5 mg tab(s) (DULCOLAX) 5 mg ORAL DAILY oxyCODONE IR 5-10 mg tab(s) (ROXICODONE) 5-10 mg ORAL q 4 H PRN sodium zirconium cyclosilicate 10 g oral packet (LOKELMA) 10 g ORAL ONCE [] naloxegol 25 mg tab(s) (MOVANTIK) 25 mg ORAL ONCE [] bisacodyl EC 10 mg tab(s) (DULCOLAX) 10 mg ORAL ONCE [COMPLETED] sodium zirconium cyclosilicate 10 g oral packet (LOKELMA) 10 g ORAL ONCE polyethylene glycol 3350 17 g packet 17 g ORAL BID [COMPLETED] sodium zirconium cyclosilicate 10 g oral packet (LOKELMA) 10 g ORAL ONCE senna 8.6 mg tab(s) (SENOKOT) 8.6 mg ORAL AT BEDTIME [] iv contrast (radiology procedure) INTRAVENOUS DIRECTED PRN [] iv contrast (radiology procedure) INTRAVENOUS DIRECTED PRN [] heparin nomogram - NO INITIAL BOLUS OTHER ONCE (heparin bolus) [COMPLETED] heparin nomogram - NURSING INSTRUCTIONS OTHER ONCE cinacalcet 60 mg tab(s) (SENSIPAR) 60 mg ORAL DAILY HYDROmorphone 0.5 mg injection (DILAUDID) 0.5 mg INTRAVENOUS DAILY PRN [] HYDROmorphone 1 mg injection (DILAUDID) 1 mg INTRAVENOUS ONCE [] iv contrast (radiology procedure) INTRAVENOUS DIRECTED PRN [COMPLETED] HYDROmorphone 0.5 mg injection (DILAUDID) 0.5 mg INTRAVENOUS ONCE B Complex-Vitamin C-Folic Acid 1 tablet tab(s) (JOHNSON-VIT) 1 tablet ORAL DAILY [COMPLETED] HYDROmorphone 0.5 mg injection (DILAUDID) 0.5 mg INTRAVENOUS ONCE midodrine 20 mg tab(s) (PROAMATINE) 20 mg ORAL PRN DIALYSIS Darbepoetin [place]ito In Polysorbat 60 mcg injection (ARANESP) 60 mcg SUBCUTANEOUS q MON dextrose 15 gram/32 mL 15 g (TRUEPLUS) 15 g ORAL PRN Or glucagon 1 mg injection 1 mg INTRAMUSCULAR PRN Or dextrose 10% iv bolus 12.5 g INTRAVENOUS PRN [COMPLETED] dextrose 10% iv bolus 25 g INTRAVENOUS STAT And [COMPLETED] insulin regular human 5 Units injection (short acting) 5 Units INTRAVENOUS STAT [COMPLETED] sodium polystyrene sulfonate (with sorbitol) 30 g liquid (SPS) 30 g ORAL ONCE [COMPLETED] HYDROmorphone 1 mg injection (DILAUDID) 1 mg INTRAVENOUS ONCE [] ondansetron (PF) 4 mg injection (ZOFRAN) 4 mg INTRAVENOUS ONCE [COMPLETED] heparin nomogram INITIAL BOLUS 80 units/kg/dose INTRAVENOUS ONCE (heparin bolus) [COMPLETED] HYDROmorphone 0.5 mg injection (DILAUDID) 0.5 mg INTRAVENOUS ONCE midodrine 20 mg tab(s) (PROAMATINE) 20 mg ORAL q [address] 40 mg tab(s) (PROTONIX) 40 mg ORAL DAILY acetaminophen 650 mg tab(s) (TYLENOL) 650 mg ORAL q 6 H PRN sevelamer carbonate 2,400 mg tab(s) (RENVELA) 2,400 mg ORAL TID w MEALS [COMPLETED] HYDROmorphone 1 mg injection (DILAUDID) 1 mg INTRAVENOUS ONCE melatonin 9 mg tab(s) 9 mg ORAL DAILY (8 PM) calcitriol 1.5 mcg cap(s) (ROCALTROL) 1.5 mcg ORAL - [COMPLETED] heparin nomogram - NURSING INSTRUCTIONS OTHER ONCE NaCl 0.9% iv flush bag 20 mL INTRAVENOUS PRN Outpatient Medications as of 10/22/2024 Medication Sig melatonin 10 mg cap Take 1 capsule by mouth daily at bedtime. Cinacalcet HCl (SENSIPAR) 60 mg tablet Take 120 mg by mouth once daily. warfarin (COUMADIN) 5 mg tablet Take 1 tablet by mouth once daily. polyethylene glycol 3350 (MIRALAX) 17 gram packet Take 1 Packet by mouth once daily. Dissolve dose in 4 - 8 ounces of liquid and take as directed. oxyCODONE IR (ROXICODONE) 10 mg tab Take 10 mg by mouth every 8 hours as needed for pain. VELPHORO 500 mg chew Crush or chew and swallow 2 tablets 3 times a day with meals B Complex-Vitamin C-Folic Acid (JOHNSON-BRENDA) 0.8 mg tab Take 1 tablet by mouth once daily. midodrine (PROAMATINE) 10 mg tablet Take 2 tablets by mouth every 8 hours. MEDICATION, NON-DATABASE Apply 1 Each to affected area once daily. Self adhesive 5x9 inch abd pad/dressing WALKER ROLLATOR SEAT WITH 6 WHEELS - RED . Blood Pressure Test Kit-Large (QUICK RESPONSE BP MONITOR) 1 Each once daily. I have interviewed and examined the patient. I have reviewed the medical record and/or the pre-anesthesia evaluation, pertinent labs, and test results. This contains updated information obtained within 48 hours of Surgery/Procedure. SIGNATURE: Nikhil Bell MD PATIENT NAME: Elia Weston DATE: October 22, 2024 TIME: 3:58 PM CSN: [id number] GAS + CO PNL BLDV Collected: 3:30 PM Status: F Source: [facility] Order Comment: Specimen Type : VENOUS BLOOD SPECIMEN Ordering Facility: [facility] Address: [address] [place] [address] TYPE CODE TESTS RESULT OUT OF RANGE REFERENCE UNITS LAB 2746-6(LOINC) pH BldV 7.42 7.32-7.42 LAB 45442-2(LOINC) pH temp adj BldV 7.43 High 7.32-7.42 LAB 2020-4(LOINC) pCO2 BldV 42 42-55 mmHg LAB 47521-2(LOINC) pCO2 temp adj BldV 41 Low 42-55 mmHg LAB 2705-2(LOINC) pO2 BldV 38 35-45 mmHg LAB 66800-3(LOINC) pO2 temp adj BldV 37 35-45 mmHg LAB 2711-0(LOINC) SaO2 % BldV 61 60-85 % LAB 1927-3(LOINC) Base excess BldV Calc-sCnc 3 High 0-2 mmol/L LAB 58984-2(LOINC) HCO3 BldV-sCnc 27 24-28 mmol/L LAB 2716-9(LOINC) OxyHgb MFr BldV 59 Low 60-85 % LAB 2032-1(LOINC) COHgb MFr BldV 1.5 0.0-2.0 % Result Comment: Carboxyhemog lobin Reference Range for Smokers: 2.0-8.0% LAB 2614-6(LOINC) MetHgb MFr Bld 1.3 0.0-1.5 % LAB 2947-0(LOINC) Sodium Bld-sCnc 140 136-144 mmol/L LAB 6298-4([facility]) Potassium Bld-sCnc 3.6 3.5-5.0 mmol/L LAB 67302-7([facility]) Ca-I Bld-mCnc 0.92 Low 1.08-1.30 m mol/L LAB 82501-8([facility]) Ca-I adj pH7.4 BldA-sCnc 0.93 Low 1.08-1.30 mmol/L LAB 2339-0([facility]) Glucose Bld-mCnc 70 60-105 mg/dL LAB 33033-5([facility]) Lactate Bld-sCnc 1.0 0.5-2.2 mmol/L LAB 718-7([facility]) Hgb Bld-mCnc 7.9 Low 13.0-17.0 g/dL LAB 4544-3(INC) Hct VFr Bld Auto 24.7 Low 39.0-51.0 % LAB VTMP TEMPERATURE, BODY 36.7 C Result Comment: CHANGED FROM ???F TO ???C. LAB VO2TH O2 THERAPY RA=Room Air Performed By: #### [id number] # ### [facility] CLIA [id number] [address] [place] [address] [place] PROGRESS Observed: 10/22/2024 3:00 PM Status: COMPLETED Source: [facility] HNO ID: [id number] Author: MATA BRIGGS MD Service: Hospital Medicine Author Type: Physician Type: Progress Notes Filed: 10/22/2024 15:20 Note Text: DEPARTMENT OF HOSPITAL MEDICINE PROGRESS NOTE SERVICE DATE: 10/22/2024 SERVICE TIME: 3:00 PM Hospital Medicine/Primary Attending: Mata Briggs MD NIGHT AND WEEKEND COVERAGE: [facility] COVERAGE: Days: [phone], please page Mata Briggs for patient issues. Nights: [phone], please page Team GIM 1: G/H 8th floor: [id number]; Non 8th floor [address] Subjective INTERVAL HPI: Seen during dialysis, notes he is feeling well today. Had a bowel movement yesterday. Pain is well controlled. Plan for OR today for angioplasty and catheter placement. Current Facility-Administered Medications Medication Dose Route Frequency NaCl 0.9% iv flush bag 20 mL INTRAVENOUS PRN dextrose 15 gram/32 mL 15 g (TRUEPLUS) 15 g ORAL PRN Or glucagon 1 mg injection 1 mg INTRAMUSCULAR PRN Or dextrose 10% iv bolus 12.5 g INTRAVENOUS PRN midodrine 20 mg tab(s) (PROAMATINE) 20 mg ORAL q [address] 40 mg tab(s) (PROTONIX) 40 mg ORAL DAILY acetaminophen 650 mg tab(s) (TYLENOL) 650 mg ORAL q 6 H PRN sevelamer carbonate 2,400 mg tab(s) (RENVELA) 2,400 mg ORAL TID w MEALS melatonin 9 mg tab(s) 9 mg ORAL DAILY (8 PM) calcitriol 1.5 mcg cap(s) (ROCALTROL) 1.5 mcg ORAL MO-WE- midodrine 20 mg tab(s) (PROAMATINE) 20 mg ORAL PRN DIALYSIS Darbepoetin [place] In Polysorbat 60 mcg injection (ARANESP) 60 mcg SUBCUTANEOUS q MON B Complex-Vitamin C-Folic Acid 1 tablet tab(s) (JOHNSON-VIT) 1 tablet ORAL DAILY cinacalcet 60 mg tab(s) (SENSIPAR) 60 mg ORAL DAILY HYDROmorphone 0.5 mg injection (DILAUDID) 0.5 mg INTRAVENOUS DAILY PRN polyethylene glycol 3350 17 g packet 17 g ORAL BID senna 8.6 mg tab(s) (SENOKOT) 8.6 mg ORAL AT BEDTIME bisacodyl EC 5 mg tab(s) (DULCOLAX) 5 mg ORAL DAILY oxyCODONE IR 5-10 mg tab(s) (ROXICODONE) 5-10 mg ORAL q 4 H PRN Objective PHYSICAL EXAM: BP 97/62 Pulse 71 Temp (Src) 97.5 (Oral) Resp 18 Ht 5' 9.685 (1.77m) Wt 249 lb 1.9 oz (113.0kg) SpO2 100% BMI 36.07 kg/(m2). O2 Therapy: Room Air General: Alert and oriented, NAD HEENT: Mucous membranes moist Cardiac: RRR with audible valve click Chest: R lorena with site well appearing Lungs: Clear to auscultation bilaterally, no respiratory distress Abdomen: Soft, nontender, mildly distended.. Ext: Warm, well perfused, no edema Skin: Ulcerations on chest and abdomen covered with dressing. Lines, Drains, and Airways Line Duration Central Line Single Lumen Tunneled Right Neck -- days Dialysis / Apheresis Double Lumen 10/05/24 External Facility Tunneled Left Femoral 17 days Peripheral 10/12/24 0530 [facility] Short Right Forearm 20 Gauge 10 days Reviewed lines and needs to be continued: REASONS: Intravenous fluids DATA: Diagnostic tests reviewed for today's visit: CBC, Coags, BMP, Mg, Phos Recent Labs 10/22/24 0549 10/22/24 0548 10/22/24 0008 10/21/24 0806 10/20/24 1708 10/20/24 0932 10/20/24 0423 WBC 4.85 -- -- 5.59 -- -- 5.17 HB 8.3* -- -- 8.2* -- -- 8.3* HCT 27.6* -- -- 27.9* -- -- 28.7* PLT 212 -- -- 228 -- -- 228 INR -- 1.7* -- 1.8* -- -- 1.8* APTT -- 64.3* -- 60.8* -- -- 59.8* NA 135* -- 135* -- 134* < > 137 K 6.2* -- 5.8* -- 5.3* < > 5.6* CHLOR 97* -- 96* -- 94* < > 94* CO2 23 -- 22 -- 25 < > 22 BUN 48* -- 43* -- 30* < > 39* CREAT 10.82* -- 10.58* -- 8.34* < > 9.39* GLUC 83 -- 83 -- 87 < > 79 CA 8.0* -- 8.0* -- 8.5 < > 8.3* < > = values in this interval not displayed. 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 Personal history of DVT (deep vein thrombosis) PAF (paroxysmal atrial fibrillation) ([facility]) History of stroke Hypotension, chronic Anemia due to stage 5 chronic kidney disease, not on chronic dialysis ([facility]) ([facility]) Status post Maze operation for atrial fibrillation Skin ulcer, limited to breakdown of skin ([facility]) SVC syndrome Generalized weakness Impaired functional mobility, balance, gait, and endurance Secondary hyperparathyroidism, renal ([facility]) Ischemic ulcer with fat layer exposed ([facility]) HOSPITAL COURSE: Justine Weston is a 44 year old male with h/o atrial fibrillation and severe mitral stenosis s/p mitral valve replacement with On-x valve, Maze procedure and RADHA clip on 08/21/2021, currently on Coumadin, ESRD on IHD via left femoral vein TDC on [facility] ), 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 He also expressed a poor pain control on oxycodone. Patient follows with pain management as outpatient for pain associated with chest and abdominal wounds. He currently takes oxycodone 10 mg every 8 hours. Denied fevers or foul-smelling discharge from both wounds. Receiving wound care at home. 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 - Vascular surgery input appreciated -- no surgical intervention available. - IR planned OR for venogram, angioplasty, Lorena removal, and TDC placement today (INR 1.7, FFP ordered litigation examiner skye-procedurally) -- Rsum Chest and abdomen ulcerations -- ischemic ulcers on biopsy - No overt evidence of infection, observing off abx - Evaluated by dermatology and s/p biopsy, continuing wound care in the meantime - Pain control with prn oxycodone, dilaudid for breakthrough, appreciate pain med input. Atrial fibrillation and severe mitral stenosis s/p mechanical mitral valve replacement with On-x valve (INR goal 2.5-3.5), Maze procedure and RADHA clip on 08/21/2021. - Cont heparin gtt held pre-procedure, resume afterwards - HOLD coumadin in anticipation of OR ESRD on hemodialysis via left femoral vein TDC on MWF Hyperkalemia - Nephrology following and optimizing HD - Lokelma + optimize bowel regimen. - Renal diet Anemia of ESRD -Hb at baseline(8.0-8.5) GERD -continue pantoprazole Obesity YEIMY on CPAP Secondary hyperparathyroidism -continue calcitriol, Cinacalcet, sevelamer Exogenous Class 2 Obesity Medication and Non-Pharmacologic VTE Prophylaxis/Anticoagulants 10/12/24 1111 activity - mobilize patient (fl,oh) VTE Prophylaxis: VTE prophylaxis appropriate Disposition: SNF, appreciate CM assistance Plan of care discussed with Provider, RN, Patient SIGNATURE: Mata Briggs MD PATIENT NAME: Elia Weston THERAPY NT Observed: 10/22/2024 2:24 PM Status: COMPLETED Source: [facility] ID: [id number] Author: HANNAH SAEED OT/L Service: Occupational Therapy Author Type: Occupational Therapist Type: Therapy (PT/OT/Speech/Resp) Filed: 10/22/2024 14:24 Note Text: Occupational Therapy Treatment Summary SERVICE DATE: 10/22/2024 SERVICE TIME: 1322 to 1346 ROOM: [place] [address] Clicks Score: 18 DISCHARGE RECOMMENDATIONS Subacute/SNF Recommended Discharge Disposition Due to: Functional deficits requiring ongoing therapy service prior to discharge home., ADL impairment, Requires multiple therapy disciplines, Functional status decline Anticipated Discharge Needs: Undetermined Recommended Discharge Equipment: To Be Determined ASSESSMENT Response to Therapy Interventions: Good Participation in Activities, Low Activity Tolerance, Multiple Ongoing Medical Issues clearing pt to work with skilled OT after dialysis. Pt lying supine with HOB elevated upon arrival, agreeable to skilled OT session. Conservative approach taken this day, limiting to EOB activity. Bed mobility supine > sit MOD A. While sitting EOB, addressing LB dressing, pt able to demo figure-4 technique used for LB dressing on BLEs, though increased difficulty with with RLE. Education provided on AE including sock-aid to assist. Bed mobility SBA EOB > supine. PRECAUTIONS Fall Risk CURRENT HOSPITAL COURSE presenting with uncontrolled pain from chest and abdominal wounds. 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 IND ADLs although he reports that bathing and dressing has been painful and time-consuming. Has been sleeping in recliner 2/2 to pain. Endorses one fall ~1 week ago from LOB. Drives. Baseline Cognition: Oriented to self, Oriented to place, Oriented to time, Oriented to situation SUBJECTIVE I am exhausted. COGNITION Responsiveness: Awake Follows Commands: 3-step Commands Psychosocial Factors Impacting Care: Anxiety/Stress Cog 6 Start of Session Total Points (Max Score = 24): 24 (10/22/24) Cog 6 End of Session Total Points (Max Score = 24): 24 (10/22/24) 4AT Score: 0 (10/22/24) Delirium Positive/Negative: Negative (10/22/24) THERAPY DIAGNOSIS Reduced mobility-other, Decreased activities of daily living (ADL), Muscle Weakness (generalized), General symptoms and signs-other TREATMENT INTERVENTIONS Therapeutic Activity (46938), Self Detention Management (66042) Timed Code Treatment (minutes): 24 Skilled Treatment Time (minutes): 24 TRAINING AND EDUCATION PROVIDED Activity Adaptation/Compensatory Strategies, Bed Mobility, Discharge Planning, Lower Extremity Dressing, Role of Occupational Therapy, Treatment Protocol, Sitting Balance to Improve [place] with ADLs/Self-Care, Assistive Device Use, Adaptive Equipment/DME THERAPEUTIC SKILLS USED Activity Dosing, Cuing Verbal, Cues for Sequencing/Proper Technique for Activity, Therapeutic Use of Self, Movement Facilitation, Muscle Activation Facilitation, Physical Assist, Facilitation of Joint Range of Motion FUNCTIONAL STATUS Activities of Daily Living Assist Level Additional Information Feeding Set Up Grooming Set Up seated Bathing Upper Body Set Up Bathing Lower Body Moderate Assistance Dressing Upper Body Set Up Dressing Lower Body Moderate Assistance Toileting Moderate Assistance Mobility Assist Level Additional Information Bed Mobility Rolling: Stand By Assistance Supine To Sit: Moderate Assistance Sit To Supine: Stand By Assistance Sit to Stand Contact Guard Assistance, Stand By Assistance (NT) Stand to Sit Contact Guard Assistance, Stand By Assistance (NT) Bed to Chair Toilet/Commode Shower Functional Mobility Contact Guard Assistance (NT) Functional Mobility Device: IV Pole GOALS Patient will demonstrate progress to optimize self-care activities, cognitive and/or coping to maximize function upon discharge. Progress Toward Goals: Progressing as expected Rehab Potential: Good PLAN OT Frequency: Hold Monitor and Reassess Treatment Interventions: Education, Self Care/Home Management, Energy Conservation Training, Strengthening, Functional Mobility Training, Pain Management, Coping Strategy Education Plan for Next Visit: Bathing Training, Dressing Training, Energy Conservation SIGNATURE: Hannah Saeed OT/L PATIENT NAME: Elia Weston DATE: October 22, 2024 TIME: 2:24 PM CASE MANAGEM Observed: 10/22/2024 12:03 PM Status: COMPLETED Source: [facility] ID: [id number] Author: EILEEN PERALTA RN Service: Care Management Author Type: Registered Nurse Type: Care Mgt Progress Note Filed: 10/22/2024 12:38 Note Text: CARE MANAGEMENT PROGRESS NOTE NO WEEKEND DISCHARGE SERVICE DATE: 10/22/2024 SERVICE TIME: 9:58 AM LOS: 10 days Post-Acute Discharge Planning Patient Goal(s): General wellness Anticipated # of Days Until Discharge: 4 Transport at Discharge: Transportation Arrangements: Ambulance Transportation Agency and Phone #:: [facility] [phone] (To be arranged) Type of Service: BLS Non-emergency Is Patient Medicaid Pending?: No Was transportation financial coverage discussed with family?: Patient C S S Representative Location: Main [place] Destination: [facility] Financial Care Management Responsibility: None Needs Prior to Discharge: Needs Prior to Discharge: To Be Determined, Accepting Facility, Bed Availability, Insurance Authorization, Precertification, Discharge Transportation (Medical Clearance, HD arrangments) Post-Acute Discharge Plan: When medically stable for hospital discharge, planning for SNF. CM sent 10/21 PT note that skilled pt for SNF, and now [facility] is willing to move forward with requesting a HD chair and them hopefully submit for ins auth. Per request of Cerron at [facility], the CC dialysis case investigator was rewuested to send them dialysis referral info (Neph note, HD order, last 3 HD sessions, Hep B pane). [facility] back up plan -updated clinicals sent to the pending referrals, however the patient is not established with a PCP at this time. CM to follow. Please see Treatment Team for Care Management Weekend/Holiday coverage. SIGNATURE: Eileen Peralta RN PATIENT NAME: Elia Weston DATE: October 22, 2024 TIME: 12:03 PM PROGRESS Observed: 10/22/2024 10:23 AM Status: COMPLETED Source: [facility]NO ID: [id number] Author: ?, ?, ? Service: Nephrology Author Type: ? Type: Progress Notes Filed: 10/22/2024 10:24 Note Text: DIALYSIS PLACEMENT NOTE Per case investigator, plan for patient to discharge to [facility]. Faxed dialysis records for onsite dialysis approval. Facility: [facility] ([address] [place] [address]) Signature: Bj Rico Patient Name: Elia Weston Date: October 22, 2024 Time: 10:23 AM CONSULT PROG Observed: 10/22/2024 9:22 AM Status: COMPLETED Source: [facility] ID: [id number] Author: ELVA PATEL APRN.MIKI Service: ? Author Type: Nurse Practitioner Type: Consult Progress Note Filed: 10/22/2024 09:32 Note Text: Department of Kidney Medicine Medical Specialties [place] [facility] NEPHROLOGY CONSULT SERVICE PROGRESS NOTE INTERVAL HISTORY: No acute events overnight noted requiring immediate intervention. Noted plan for OR today Persistent hyperkalemia over the last few days. Patient seen on IHD. Orders placed and confirmed in [facility] Admission weight: 113.4 kg (250 lb) Last recorded weight: 113 kg (249 lb 1.9 oz) MEDICATIONS: Current Facility-Administered Medications Medication Dose Route Frequency NaCl 0.9% iv flush bag 20 mL INTRAVENOUS PRN dextrose 15 gram/32 mL 15 g (TRUEPLUS) 15 g ORAL PRN Or glucagon 1 mg injection 1 mg INTRAMUSCULAR PRN Or dextrose 10% iv bolus 12.5 g INTRAVENOUS PRN midodrine 20 mg tab(s) (PROAMATINE) 20 mg ORAL q [address] 40 mg tab(s) (PROTONIX) 40 mg ORAL DAILY acetaminophen 650 mg tab(s) (TYLENOL) 650 mg ORAL q 6 H PRN sevelamer carbonate 2,400 mg tab(s) (RENVELA) 2,400 mg ORAL TID w MEALS melatonin 9 mg tab(s) 9 mg ORAL DAILY (8 PM) calcitriol 1.5 mcg cap(s) (ROCALTROL) 1.5 mcg ORAL MO-WE- midodrine 20 mg tab(s) (PROAMATINE) 20 mg ORAL PRN DIALYSIS Darbepoetin [place]ito In Polysorbat 60 mcg injection (ARANESP) 60 mcg SUBCUTANEOUS q MON B Complex-Vitamin C-Folic Acid 1 tablet tab(s) (JOHNSON-VIT) 1 tablet ORAL DAILY cinacalcet 60 mg tab(s) (SENSIPAR) 60 mg ORAL DAILY oxyCODONE IR 10 mg tab(s) (ROXICODONE) 10 mg ORAL q 4 H PRN HYDROmorphone 0.5 mg injection (DILAUDID) 0.5 mg INTRAVENOUS DAILY PRN polyethylene glycol 3350 17 g packet 17 g ORAL BID senna 8.6 mg tab(s) (SENOKOT) 8.6 mg ORAL AT BEDTIME ALLERGIES: Gabapentin and Trazodone VITAL SIGNS: BP 102/60 Pulse 77 Temp 36.2 ?C (97.2 ?F) (Oral) Resp 17 Ht 177 cm (5' 9.69) Wt 113 kg (249 lb 1.9 oz) SpO2 99% BMI 36.07 kg/m? PHYSICAL EXAM: GENERAL: awake, alert, in no acute distress, cooperative, lying in bed SKIN: Skin color, texture, turgor normal. No rashes or lesions. HEENT: normocephalic, perrl, moist oral mucosa NECK: no JVD, masses or bruits LUNGS: Good diaphragmatic excursion and normal respiratory effort. CARDIAC: RRR ABDOMEN: soft, EXTREMITIES:generalized edema NEURO: AOx3, normal speech, muscle strength grossly intact ACCESS: L femoral TDC accessed with normal findings Lines, Drains, and Airways Line Duration Central Line Single Lumen Tunneled Right Neck -- days Dialysis / Apheresis Double Lumen 10/05/24 External Facility Tunneled Left Femoral 17 days Peripheral 10/12/24 0530 [facility] Short Right Forearm 20 Gauge 10 days Labs: Recent Labs 10/22/24 0549 10/22/24 0548 10/22/24 0008 10/21/24 0806 10/20/24 1708 10/20/24 0932 10/20/24 0423 WBC 4.85 -- -- 5.59 -- -- 5.17 HB 8.3* -- -- 8.2* -- -- 8.3* HCT 27.6* -- -- 27.9* -- -- 28.7* PLT 212 -- -- 228 -- -- 228 INR -- 1.7* -- 1.8* -- -- 1.8* APTT -- 64.3* -- 60.8* -- -- 59.8* NA 135* -- 135* -- 134* < > 137 K 6.2* -- 5.8* -- 5.3* < > 5.6* CHLOR 97* -- 96* -- 94* < > 94* CO2 23 -- 22 -- 25 < > 22 ANION 15 -- 17* -- 15 < > 21* BUN 48* -- 43* -- 30* < > 39* CREAT 10.82* -- 10.58* -- 8.34* < > 9.39* GLUC 83 -- 83 -- 87 < > 79 CA 8.0* -- 8.0* -- 8.5 < > 8.3* < > = values in this interval not displayed. ASSESSMENT: 44 year old male with Pmhx of Afib, hx MVR on coumadin, ESRD on HD MWF, hyperparathyroidism, HTN, hx of SVC syndrome, HLD, obesity and YEIMY presenting with complaint of painful chronic chest wound and missed dialysis. Of note, he was recently admitted for a dislodged catheter and had femoral TDC 50cm replacement 10/07/24. Course has been complicated by SVC syndrome workup, with a history of complication of multiple bilateral IJ TDC placement/associated thrombosis also leading to chest wall and abdominal varices. Vascular surgery was consulted. Nephrology consulted for ESRD management 1. ESRD Hx First HD: 2005 Unit: [facility] Najma Configuration Release Manager: Dr. Melendez Days: MW EDW: 114.1 kg Time: 4.5 hrs Access: L Fem TDC SHPT: rocaltrol 1.5mcg TIW, sensipar 60mg daily, PTH 1500 Heparin: 10,000u bolus 2. Electrolytes: -Potassium - hyperkalemia - will modulate with 2K bath in [place] Last URR: 65 3. Volume status: -hypervolemic - BP 119/64 -Midodrine - Pre weight : 123 kg on Q6 versus 113 on 10/12 on RNF?>>need standing weights, order was replaced on 10/20, and still has not been completed on [facility]. 4. Acid-base: - AGMA - will modulate with [place] 5. Ca/P/Pth/Bone mineral disease: - Sevelamer with meals. Sensipar daily and Calcitriol on dialysis days -previous punch bx in 2022 was not consistent with calciphylaxis 6. Anemia of CKD below goal, high ferritin PLAN: - HD today F250, Qb400, UF 4.1L, 4.5 hrs - next session Friday () -pre and post BUN next treatment -recommend lokelma on non dialysis days 10 mg over the weekend in setting of hyperkalemia - EDW 114kg - continue Aranesp QMonday - nephrocaps - renvela with meals -need STANDING WEIGHTS - has not been completed since 10/12, order replaced 10/20, nursing reminded. Consent for [place]: ESRD Outpatient dialysis disposition plan: contact [phone] and ask to speak with the director of front office as needed for assistance with post-discharge arrangements. Please DO NOT schedule patient for a nephrology follow up appointment. Kidney care will be provided by the primary data warehousing engineer at their dialysis unit upon hospital discharge. Elva Patel APRN.FLORAL ASSOCIATE Nephrology and Hypertension [facility] October 22, 2024 9:22 AM PAGER # [phone] Disclosures: Parts of the current progress note may have been copied from a previous note. FOR AFTER HOUR CONCERNS BETWEEN 5PM - 7AM CONTACT ON-CALL NEPHROLOGY FELLOW [phone] PLAN OF CARE Observed: 10/22/2024 9:19 AM Status: COMPLETED Source: [facility]NO ID: [id number] Author: MATA BRIGGS MD Service: Hospital Medicine Author Type: Physician Type: Plan of Care Filed: 10/22/2024 09:22 Note Text: Re Planned OR for venogram, angioplasty, Lorena removal, and TDC placement Discussed with Dr. Issa. In setting of INR of 1.7 with mechanical valve we agreed can proceed with 1 unit FFP available at time of procedure. Will resume heparin gtt post-procedure. Patient NPO and holding heparin gtt in anticipation of intervention. Mata Briggs MD Department of Hospital Medicine 10/22/24 BAS METAB 1999 PNL SERPL Collected: 5:49 AM Status: F Source: [facility] Order Comment: Specimen Type : BLOOD SPECIMEN Ordering Facility: [facility] Address: [address] [place] [address] TYPE CODE TESTS RESULT OUT OF RANGE REFERENCE UNITS LAB 2345-7(LOINC) Glucose SerPl-mCnc 83 74-99 mg/dL Result Comment: The [place] Diabetes Association (ADA) provides guidance for cutoff values for fasting glucose and random glucose. The ADA defines fasting as no caloric intake for at least 8 hours. Fasting plasma glucose results between 100 to 125 mg/dL indicate increased risk for diabetes (prediabetes). Fasting plasma glucose results greater than or equal to 126 mg/dL meet the criteria for diagnosis of diabetes. In the absence of unequivocal hyperglycemia, results should be confirmed by repeat testing. In a patient with classic symptoms of hyperglycemia or hyperglycemic crisis, random plasma glucose results greater than or equal to 200 mg/dL meet the criteria for diagnosis of diabetes. Reference: Standards of Medical Care in Diabetes 2016, [place] Diabetes Association. Diabetes Care. 2016.39(Suppl 1). LAB 3094-0(LOINC) BUN SerPl-mCnc 48 High 9-24 mg/ dL LAB 2160-0(LOINC) Creat SerPl-mCnc 10.82 High 0.73-1.22 mg/dL LAB 2951-2(LOINC) Sodium SerPl-sCnc 135 Low 136-144 mmol/L LAB 2823-3(LOINC) Potassium SerPl-sCnc 6.2 High Alert 3.7-5.1 mmol/L LAB 2075-0(LOINC) Chloride SerPl-sCnc 97 Low 98-107 mmol/L LAB 2027-9(LOINC) CO2 SerPl-sCnc 23 22-30 mmo l/L LAB 71916-0(LOINC) Anion Gap SerPl-sCnc 15 8-15 mmol/L LAB 01684-9(LOINC) Calcium SerPl-mCnc 8.0 Low 8.5-10.2 mg/dL LAB 94129-7(LOINC) Creatinine + eGFR Pnl SerPlBld 6 Low >=60 mL/min/1 .73m??? Result Comment: Estimated Gl omerular Filtration Rate (eGFR) is calculated using the 2020 CKD-EPI creatinine equation. This equation utilizes serum creatinine, sex, and age as parameters. The creatinine assay has traceable calibration to isotope dilution-mass spectrometry. Refer to KDIGO guidelines for clinical interpretation. In patients with unstable renal function, e.g. those with acute kidney injury, the eGFR may not accurately reflect actual GFR. Performed By: #### 00440-5 # ### [facility] CLIA [id number] [address] [place] [address] [place] CBC PNL BLD AUTO Collected: 5 5:49 AM Status: F Source: [facility] Order Comment: Specimen Type : BLOOD SPECIMEN Ordering Facility: [facility] Address: [address] [place] [address] TYPE CODE TESTS RESULT OUT OF RANGE REFERENCE UNITS LAB 6690-2(LOINC) WBC # Bld Auto 4.85 3.70-11.00 k/uL LAB 789-8(LOINC) RBC # Bld Auto 2.90 Low 4.20-6.00 m/uL LAB 718-7(LOINC) Hgb Bld-mCnc 8.3 Low 13.0-17.0 g/dL LAB 4544-3(LOINC) Hct VFr Bld Auto 27.6 Low 39.0-51.0 % LAB 787-2(LOINC) MCV RBC Auto 95.2 80.0-100.0 fL LAB 785-6(LOINC) MCH RBC Qn Auto 28.6 26.0-34.0 pg LAB 786-4(LOINC) MCHC RBC Auto-mCnc 30.1 Low 30.5-36.0 g/dL LAB 21133-8(LOINC) RDW RBC-Rto 18.9 High 11.5-15.0 % LAB 777-3(LOINC) Platelet # Bld Auto 212 150-400 k/uL LAB 73757-1(LOINC) PMV Bld Auto 10.8 9.0-12.7 fL LAB 771-6(LOINC) nRBC # Bld Auto <0.01 <0.01 k/uL Performed By: #### [id number] # ### [facility] CLIA [id number] [address] [place] [address] OF [facility] PT PNL PPP Collected: 10/22/2024 5:48 AM Status: F Source: [facility] Order Comment: Specimen Type : BLOOD SPECIMEN Ordering Facility: [facility] Address: [address] [place] [address] TYPE CODE TESTS RESULT OUT OF RANGE REFERENCE UNITS LAB 5902-2(INC) Prothrombin time 17.4 High 9.7-13.0 sec LAB 6301-6([facility]) INR PPP 1.7 High 0.9-1.3 Result Comment: Vitamin K An tagonist (VKA) Therapeutic Range: INR 2 to 3 (Target INR of 2.5) Note: For patients treated with VKA drugs, such as warfarin, the [place] [employer] 2012 Guideline recommends a therapeutic INR range of 2 to 3 (target INR of 2.5). This recommendation includes high-risk patients with antiphospholipid syndrome with previous arterial or venous thromboembolism, current-generation mechanical or bioprosthetic aortic heart valve replacement. Note: Patients with mechanical aortic valve replacement and additional risk factors for thromboembolic events (atrial fibrillation, previous thromboembolism, LV dysfunction, hypercoagulable conditions) or an older generation mechanical AVR (i.e., ball in-Cage) or any mechanical MVR should have a INR therapeutic range of 2.5 to 3.5 (target INR of 3). Ranjit YOUSSEF, et al. Chest 2012, 141:7S-47S Kevin RA, et al. [facility] 2017, 70: 252-289 Performed By: #### 70617-8, PTTAC #### [facility] CLIA [id number] [address] [place] [address] [place] PTT, ANTICOAGULANT THERAPY Collected: 0 10/22/2024 5:48 AM Status: F Source: [facility] Comment: Specimen Type : BLOOD SPECIMEN Ordering Facility: [facility] Address: [address] [place] [address] TYPE CODE TESTS RESULT OUT OF RANGE REFERENCE UNITS LAB 89771-1(LOINC) aPTT PPP 64.3 High 23.0-32.4 sec Performed By: #### 57955-6, PTTAC #### [facility] CLIA [id number] [address] [place] [address] [place] TYPE + SCREEN Collected: 10/22/2024 12:08 AM Status: F Source: [facility] Comment: Specimen Type : BLOOD SPECIMEN Ordering Facility: [facility] Address: [address] [place] [address] TYPE CODE TESTS RESULT OUT OF RANGE REFERENCE UNITS LAB [id number] ABO B LAB [id number] RH Positive LAB [id number] ANTIBODY SCREEN Negative LAB [id number] TYPE AND SCREEN EXPIRATION 10/25/2024 23:59 Performed By: #### TSCR #### [facility] CLIA [id number] [address] [place] [address] [place] BAS METAB 2000 PNL SERPL Collected: 12:08 AM Status: F Source: [facility] Comment: Specimen Type : BLOOD SPECIMEN Ordering Facility: [facility] Address: [address] [place] [address] TYPE CODE TESTS RESULT OUT OF RANGE REFERENCE UNITS LAB 2345-7(LOINC) Glucose SerPl-mCnc 83 74-99 mg/dL Result Comment: The [place] Diabetes Association (ADA) provides guidance for cutoff values for fasting glucose and random glucose. The ADA defines fasting as no caloric intake for at least 8 hours. Fasting plasma glucose results between 100 to 125 mg/dL indicate increased risk for diabetes (prediabetes). Fasting plasma glucose results greater than or equal to 126 mg/dL meet the criteria for diagnosis of diabetes. In the absence of unequivocal hyperglycemia, results should be confirmed by repeat testing. In a patient with classic symptoms of hyperglycemia or hyperglycemic crisis, random plasma glucose results greater than or equal to 200 mg/dL meet the criteria for diagnosis of diabetes. Reference: Standards of Medical Care in Diabetes 2016, [place] Diabetes Association. Diabetes Care. 2016.39(Suppl 1). LAB 3094-0(LOINC) BUN SerPl-mCnc 43 High 9-24 mg/ dL LAB 2160-0(LOINC) Creat SerPl-mCnc 10.58 High 0.73-1.22 mg/dL LAB 2951-2(LOINC) Sodium SerPl-sCnc 135 Low 136-144 mmol/L LAB 2823-3(LOINC) Potassium SerPl-sCnc 5.8 High 3.7-5.1 mmol/L LAB 2075-0(LOINC) Chloride SerPl-sCnc 96 Low 98-107 mmol/L LAB 2028-9(LOINC) CO2 SerPl-sCnc 22 22-30 mmo l/L LAB 99020-9(LOINC) Anion Gap SerPl-sCnc 17 High 8-15 mmol/L LAB 03415-3(LOINC) Calcium SerPl-mCnc 8.0 Low 8.5-10.2 mg/dL LAB 13370-6(LOINC) Creatinine + eGFR Pnl SerPlBld 6 Low >=60 mL/min/1 .73m??? Result Comment: Estimated Gl omerular Filtration Rate (eGFR) is calculated using the 2020 CKD-EPI creatinine equation. This equation utilizes serum creatinine, sex, and age as parameters. The creatinine assay has traceable calibration to isotope dilution-mass spectrometry. Refer to KDIGO guidelines for clinical interpretation. In patients with unstable renal function, e.g. those with acute kidney injury, the eGFR may not accurately reflect actual GFR. Performed By: #### 98388-3 # ### [facility] CLIA [id number] [address] [place] [address] [place] CONSULT PROG Observed: 10/21/2024 8:12 PM Status: COMPLETED Source: [facility] HNO ID: [id number] Author: NANCY PEDROZA MD Service: Dermatology Author Type: Physician Type: Consult Progress Note Filed: 10/21/2024 21:27 Note Text: DERMATOLOGY HOSPITAL CONSULT SERVICE PROGRESS NOTE Interval Events - Biopsy resulted - discussed with pt - Pt reports he prefers going to wound care clinic versus having home health wound care - had negative experience with inconsistent home health care in the past PHYSICAL EXAM BP 98/71 Pulse 76 Temp 36.4 ?C (97.5 ?F) (Axillary) Resp 18 Ht 177 cm (5' 9.69) Wt 113 kg (249 lb 1.9 oz) SpO2 100% BMI 36.07 kg/m? GEN: Age appropriate Skin examination was performed of the chest, abdomen, back and was pertinent for: - R chest with ulceration with granulation tissue at base - L mid to lower back with scattered round ulcerations with granulation tissue at base and hyperpigmented periphery - R lower back with hypopigmented scars with hyperpigmented periphery Per photo review: - L chest, R abdomen, L back with round to ovoid ulceration with white base LABORATORY TESTS: CBC: Recent Labs 10/21/24 0806 10/20/24 0423 10/19/24 0128 10/18/24 0746 10/17/24 0840 10/16/24 0528 10/15/24 0431 WBC 5.59 5.17 6.64 6.29 5.16 5.08 4.99 HB 8.2* 8.3* 8.5* 8.4* 8.5* 8.5* 8.2* HCT 27.9* 28.7* 29.3* 28.9* 28.4* 28.8* 27.0* PLT 228 228 255 266 241 248 238 MCV 93.9 97.0 95.8 95.4 94.7 95.0 91.8 RDWCV 18.8* 19.1* 19.0* 18.6* 18.5* 18.2* 18.2* BMP: Recent Labs 10/20/24 1708 10/20/24 0932 10/20/24 0423 10/19/24 0128 10/18/24 0746 10/17/24 0840 10/16/24 0528 10/15/24 0431 GLUC 87 83 79 90 74 77 88 84 NA 134* 139 137 135* 135* 137 137 137 K 5.3* 7.0* 5.6* 5.4* 6.0* 5.3* 4.5 4.6 CHLOR 94* 91* 94* 94* 95* 95* 95* 92* CO2 25 23 22 25 23 22 26 28 ANION 15 25* 21* 16* 17* 20* 16* 17* BUN 30* 37* 39* 23 42* 35* 20 27* CREAT 8.34* 9.00* 9.39* 6.62* 10.08* 8.35* 6.04* 8.02* HEPATIC: No results for input(s): ALKPHOS, ALT, AST, TBILI, LIPASE in the last 168 hours. BIOPSY: 06/30/2023 FINAL DIAGNOSIS Skin, right lower back, punch biopsy: - Ulcer with dermal fibrosis, vascular ectasia, and reactive vascular proliferation (see comment). AF/LX/rw 06/27/2023 Diagnosis Comment Histologic sections demonstrate a focally ulcerated epidermis. The adjacent intact epidermis demonstrates reactive hyperplasia. Within the dermis, there is fibrosis and an interstitial proliferation of mononuclear cells associated with a chronic lymphohistiocytic infiltrate. Eosinophils are not readily identified. Within the mid dermis, there is a single prominently dilated vessel lined by bland-appearing endothelial cells. To further characterize the dilated vessel, immunohistochemical stains were performed on block A1 at the [facility] and compared to appropriate controls. A significant percentage of dermal interstitial cells, and endothelial cells lining the prominently dilated vessel, are positive for ERG and are negative for D2-40. Clinical photos and history are reviewed. Overall, the histologic features are those of ulcer with dermal fibrosis, vascular ectasia, and reactive vascular proliferation. These histologic features are nonspecific. In the appropriate clinical setting, an ulcer related to chronic ischemia could be considered. Histologic features suggestive of pyoderma gangrenosum are not identified. Clinical correlation is recommended. 10/15/24 FINAL DIAGNOSIS A. Skin, chest, punch biopsy: - Dermal fibrosis and reactive vascular proliferation, see comment. APF/anupam 10/18/2024 Diagnosis Comment Histologic sections display a basket-weave to compact orthokeratotic stratum corneum with focal parakeratosis overlying a markedly acanthotic and mildly spongiotic epidermis. Within the dermis, there is a superficial and deep interstitial vascular and histiocytic proliferation with collagen fibrosis and elastic fiber disarray. There is a scant perivascular mixed infiltrate including lymphocytes, histiocytes, and neutrophils. Eosinophils are not readily identified. To further evaluate this specimen, immunohistochemical and special stains were performed and compared to appropriate controls. Gram, GMS, and AFB-Christiana stains are negative for evidence of infectious organisms. A Von Kossa stain is negative for evidence of intraluminal or dermal calcium deposition. In order to further evaluate the vascular proliferation, immunohistochemical staining is performed at the [facility] on block A1 with appropriate controls. Stains for CD31 and ERG highlight the vascular endothelial cells, showing that they are mostly small and thin-walled without significant nuclear enlargement or multilayering. The clinical history and photographs are reviewed. Overall, these features are those of dermal fibrosis and a reactive vascular proliferation. These findings could be consistent with reactive ischemic changes in the correct clinical context. Features of pyoderma gangrenosum calciphylaxis are not identified, although the subcutaneous adipose tissue is minimally sampled. Clinical correlation remains essential. 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 Dermatology was consulted by ID for multiple ulcerations. Previous skin biopsy revealed ulcer with dermal fibrosis, vascular ectasia, and reactive vascular proliferation - overall nonspecific findings but could be related to chronic ischemia given patient's history and clinical morphology. Punch biopsy showing dermal fibrosis and a reactive vascular proliferation which is most consistent with reactive ischemic changes in the correct clinical context. Features of pyoderma gangrenosum, calciphylaxis not identified. Tissue cultures no growth on bacterial culture and NGTD on fungal/AFB. PLAN: (Not final until signed by staff physician) - Continue wound care for ulcerations: - Xeroform or Vaseline gauze - Followed by ABD pad and tape to secure - Please arrange for outpatient wound care referral at discharge as this patient will require close follow up for wound management - patient prefers outpatient wound care to home health wound care - Recommend nutrition consult as optimizing nutrition will assist with wound healing - Caution with debridement and/or skin grafting until underlying etiology determined given potential compromised vasculature Patient seen and discussed with attending printed circuit board assembler, Dr. Pedroza Thank you for allowing us to participate in this patient's care. We will sign off at this time. Please re-consult us should any new concerns arise. Taylor Lackey MD Dermatology, PGY-4 October 21, 2024 8:12 PM Please use consult pager [phone], Mon-Fri 8am-5pm. Please call adzing and boring machine operator for on-call resident/pager during all other hours. Attending Note: I evaluated the patient and personally participated in the mendoza components of this encounter. I agree with the resident/student's findings and plan as documented and have discussed the case and management of the patient's care with the resident/student. The note was annotated by me as needed to reflect my direct input. Medical Complexity: chronic illness - not at treatment goal Signature: Nancy Pedroza MD Date: 10/21/2024 Time: 9:27 PM THERAPY NT Observed: 10/21/2024 6:35 PM Status: COMPLETED Source: [facility] HNO ID: [id number] Author: GRAYSON CROSS PT Service: Physical Therapy Author Type: Physical Therapist Type: Therapy (PT/OT/Speech/Resp) Filed: 10/21/2024 18:35 Note Text: Physical Therapy Treatment Summary SERVICE DATE: 10/21/2024 SERVICE TIME: 172 to 181 [facility]OM: [facility] 6 Clicks Score: 17 DISCHARGE RECOMMENDATIONS Subacute/SNF Recommended Discharge Disposition Due to: Balance deficits, Functional status decline Recommended Discharge Equipment: To Be Determined ASSESSMENT Response to Therapy Interventions: Good Participation in Activities, Pain, Requires Additional Time to Complete Activities PRECAUTIONS Fall Risk CURRENT HOSPITAL COURSE presenting with uncontrolled pain from chest and abdominal wounds. 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 IND ADLs although he reports that bathing and dressing has been painful and time-consuming. Has been sleeping in recliner 2/2 to pain. Endorses one fall ~1 week ago from [employer]. SUBJECTIVE Patient stated that he was ready for PT. THERAPY DIAGNOSIS Reduced mobility-other, Muscle Weakness (generalized), Abnormalities of gait and mobility-other, Unsteadiness on feet TREATMENT INTERVENTIONS Therapeutic Exercise (80458), Therapeutic Activity (45020), Gait Training (94319) Timed Code Treatment (minutes): 42 Skilled Treatment Time (minutes): 42 TRAINING AND EDUCATION PROVIDED Assistive Device Use, Benefits of In-Hospital Mobility, Discharge Planning, Exercise Program, Expected Functional Level, Falls Prevention, Gait Pattern, Reduction of Deviations, Patient Exercise/Therapy Program Support Needs, Precautions/Restrictions, Standing Balance, Transfers THERAPEUTIC SKILLS USED Activity Dosing, Assessment of Tolerance Including Vitals Response to Activity, Cues for Sequencing/Proper Technique for Activity, Cuing Tactile, Cuing Verbal, Cuing Visual, Movement Facilitation, Management of Critical Lines, Tubes and/or Drains, Muscle Activation Facilitation, Physical Assist, Postural Alignment Correction FUNCTIONAL STATUS Bed Mobility Rolling: Stand By Assistance Supine To Sit: Contact Guard Assistance, Additional Information Scooting: Stand By Assistance Transfers Sit To Stand: Contact Guard Assistance Stand To Sit: Minimal Assistance Bed to Chair Minimal Assistance Bed To Chair Transfer Type: Stepping Bed To Chair Transfer Equipment: (iv pole) Gait Minimal Assistance . Gait Device: Wheeled Walker General Deviations/Observations: Magali decreased, Difficulty changing direction/turning, Flexed trunk posture, Lateral sway increased, Non-functional gait speed, Step length decreased, Wide base of support, UE weight bearing on assistive device excessive, Improper distancing from assistive device Gait Distance (feet): 18 feet X 2 trials Stairs (unable to safely attempt) GOALS Patient will demonstrate progress to optimize functional mobility, maximize activity tolerance and endurance to maximize function upon discharge. Rehab Potential: Good Progress Toward Goals: Progressing as expected PLAN PT Frequency: 4 Times Per Week (2) Treatment Interventions: Education, Energy Conservation Training, Functional Mobility Training, Strengthening, Balance Training, Neuromuscular Re-education Plan for Next Visit: Gait Training, Standing Balance, Stair Training SIGNATURE: Grayson Cross PT PATIENT NAME: Elia Weston DATE: October 21, 2024 TIME: 6:35 PM PROGRESS Observed: 10/21/2024 3:33 PM Status: COMPLETED Source: [facility] HNO ID: [id number] Author: MATA BRIGGS MD Service: Hospital Medicine Author Type: Physician Type: Progress Notes Filed: 10/21/2024 15:41 Note Text: [facility] MEDICINE PROGRESS NOTE SERVICE DATE: 10/21/2024 SERVICE TIME: 3:34 PM Hospital Medicine/Primary Attending: Mata Briggs MD NIGHT AND WEEKEND COVERAGE: [facility] COVERAGE: Days: 1734-1711, please page Mata Briggs for patient issues. Nights: [phone], please page Team M 1: G/H 8th floor: [phone]; Non 8th floor [phone] Subjective INTERVAL HPI: Doing well today overall. Pain controlled. No BM yesterday. Notes he was frustrated by conversation with CM yesterday where she shared SNF might not be feasible. Wants to work with PT/OT again to better assess his mobility. Ready for OR tomorrow Current Facility-Administered Medications Medication Dose Route Frequency NaCl 0.9% iv flush bag 20 mL INTRAVENOUS PRN dextrose 15 gram/32 mL 15 g (TRUEPLUS) 15 g ORAL PRN Or glucagon 1 mg injection 1 mg INTRAMUSCULAR PRN Or dextrose 10% iv bolus 12.5 g INTRAVENOUS PRN midodrine 20 mg tab(s) (PROAMATINE) 20 mg ORAL q [address] 40 mg tab(s) (PROTONIX) 40 mg ORAL DAILY acetaminophen 650 mg tab(s) (TYLENOL) 650 mg ORAL q 6 H PRN sevelamer carbonate 2,400 mg tab(s) (RENVELA) 2,400 mg ORAL TID w MEALS melatonin 9 mg tab(s) 9 mg ORAL DAILY (8 PM) calcitriol 1.5 mcg cap(s) (ROCALTROL) 1.5 mcg ORAL MO-WE- midodrine 20 mg tab(s) (PROAMATINE) 20 mg ORAL PRN DIALYSIS Darbepoetin [place] In Polysorbat 60 mcg injection (ARANESP) 60 mcg SUBCUTANEOUS q MON B Complex-Vitamin C-Folic Acid 1 tablet tab(s) (JOHNSON-VIT) 1 tablet ORAL DAILY cinacalcet 60 mg tab(s) (SENSIPAR) 60 mg ORAL DAILY oxyCODONE IR 10 mg tab(s) (ROXICODONE) 10 mg ORAL q 4 H PRN HYDROmorphone 0.5 mg injection (DILAUDID) 0.5 mg INTRAVENOUS DAILY PRN heparin iv infusion 25,000 units in NaCl 0.45% 250 mL STANDARD NOMOGRAM 0-3,000 Units/hr INTRAVENOUS CONTINUOUS And heparin RATE CHANGE bolus 1,000-10,000 Units for subtherapeutic PTTAC results 1,000-10,000 Units INTRAVENOUS PRN polyethylene glycol 3350 17 g packet 17 g ORAL BID senna 8.6 mg tab(s) (SENOKOT) 8.6 mg ORAL AT BEDTIME Objective PHYSICAL EXAM: BP 98/71 Pulse 76 Temp (Src) 97.5 (Axillary) Resp 18 Ht 5' 9.685 (1.77m) Wt 249 lb 1.9 oz (113.0kg) SpO2 99% BMI 36.07 kg/(m2). O2 Therapy: Continuous Positive Airway Pressure General: Alert and oriented, NAD HEENT: Mucous membranes moist Cardiac: RRR with audible valve click Chest: R lorena with site well appearing Lungs: Clear to auscultation bilaterally, no respiratory distress Abdomen: Soft, nontender, mildly distended.. Ext: Warm, well perfused, no edema Skin: Ulcerations on chest and abdomen covered with dressing. Lines, Drains, and Airways Line Duration Central Line Single Lumen Tunneled Right Neck -- days Dialysis / Apheresis Double Lumen 10/05/24 External Facility Tunneled Left Femoral 16 days Peripheral 10/12/24 0530 [facility] Short Right Forearm 20 Gauge 9 days Reviewed lines and needs to be continued: REASONS: Intravenous fluids DATA: Diagnostic tests reviewed for today's visit: CBC, Coags, BMP, Mg, Phos Recent Labs 10/21/24 0806 10/20/24 1708 10/20/24 0932 10/20/24 0423 10/19/24 2204 10/19/24 1431 10/19/24 0128 WBC 5.59 -- -- 5.17 -- -- 6.64 HB 8.2* -- -- 8.3* -- -- 8.5* HCT 27.9* -- -- 28.7* -- -- 29.3* PLT 228 -- -- 228 -- -- 255 INR 1.8* -- -- 1.8* -- -- 2.0* APTT 60.8* -- -- 59.8* 69.1* < > 46.4* NA -- 134* 139 137 -- -- 135* K -- 5.3* 7.0* 5.6* -- -- 5.4* CHLOR -- 94* 91* 94* -- -- 94* CO2 -- 25 23 22 -- -- 25 BUN -- 30* 37* 39* -- -- 23 CREAT -- 8.34* 9.00* 9.39* -- -- 6.62* GLUC -- 87 83 79 -- -- 90 CA -- 8.5 7.6* 8.3* -- -- 8.6 < > = values in this interval not displayed. 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 Personal history of DVT (deep vein thrombosis) PAF (paroxysmal atrial fibrillation) ([facility]) History of stroke Hypotension, chronic Anemia due to stage 5 chronic kidney disease, not on chronic dialysis ([facility]) ([facility]) Status post Maze operation for atrial fibrillation Skin ulcer, limited to breakdown of skin ([facility]) SVC syndrome Generalized weakness Impaired functional mobility, balance, gait, and endurance Secondary hyperparathyroidism, renal ([facility]) HOSPITAL COURSE: Justine Weston is a 44 year old male with h/o atrial fibrillation and severe mitral stenosis s/p mitral valve replacement with On-x valve, Maze procedure and RADHA clip on 08/21/2021, currently on Coumadin, ESRD on IHD via left femoral vein TDC on F([facility] [place] ), 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 He also expressed a poor pain control on oxycodone. Patient follows with pain management as outpatient for pain associated with chest and abdominal wounds. He currently takes oxycodone 10 mg every 8 hours. Denied fevers or foul-smelling discharge from both wounds. Receiving wound care at home. 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 - Vascular surgery input appreciated -- no surgical intervention available. - IR planning to take to OR tomorrow 10/22 for venogram, angioplasty, Lorena removal and TDC placement in the chest (needs INR <1.5, holding coumadin) Chest and abdomen ulcerations - No overt evidence of infection, observing off abx - Evaluated by dermatology and s/p biopsy, continuing wound care in the meantime. Follow biopsy result - remains in prog - Pain control with prn oxycodone, dilaudid for breakthrough, appreciate pain med input. Atrial fibrillation and severe mitral stenosis s/p mechanical mitral valve replacement with On-x valve (INR goal 2.5-3.5), Maze procedure and RADHA clip on 08/21/2021. - Cont heparin gtt, - HOLD coumadin in anticipation of OR ESRD on hemodialysis via left femoral vein TDC on [facility] Hyperkalemia - Nephrology following and optimizing HD - Alfred + optimize bowel regimen. - RFP not sent this am.. d/w rn and waiting on redraw - Renal diet Anemia of ESRD -Hb at baseline(8.0-8.5) GERD -continue pantoprazole Obesity YEIMY on CPAP Secondary hyperparathyroidism -continue calcitriol, Cinacalcet, sevelamer Exogenous Class 2 Obesity Medication and Non-Pharmacologic VTE Prophylaxis/Anticoagulants Anticoagulant AND Antiplatelet Medications (From admission, onward) Start Dose Route Frequency Last Action Ordered Stop 10/18/24 1230 heparin iv infusion 25,000 units in NaCl 0.45% 250 mL STANDARD NOMOGRAM (Heparin Infusion + Bolus for Subtherapeutic PTTAC) 0-30 mL/hr Placed in And Linked Group 0-3,000 Units/hr INTRAVENOUS CONTINUOUS New Bag/Syringe/Bottle, 10/21 92210/18/24 1213 -- 10/12/24 1111 activity - mobilize patient (nj,ms) VTE Prophylaxis: VTE prophylaxis appropriate Disposition: SNF, appreciate CM assistance Plan of care discussed with Provider, RN, Patient SIGNATURE: Mata Briggs MD PATIENT NAME: Elia Weston CASE MANAGEM Observed: 10/21/2024 11:57 AM Status: COMPLETED Source: [facility] HNO ID: [id number] Author: EILEEN PERALTA RN Service: Care Management Author Type: Registered Nurse Type: Care Mgt Progress Note Filed: 10/22/2024 08:53 Note Text: CARE MANAGEMENT PROGRESS NOTE SERVICE DATE: 10/21/2024 SERVICE TIME: 11:57 AM LOS: 9 days Post-Acute Discharge Planning Patient Goal(s): General wellness Anticipated # of Days Until Discharge: 2 Transport at Discharge: likely self-transport, parked here Needs Prior to Discharge: Needs Prior to Discharge: To Be Determined, Bed Availability, Insurance Authorization, Precertification (Medical clearance, facility with HD support.) Post-Acute Discharge Plan: Pending medical clearance: Home with [facility] (referrals pending, F2F needed) vs SNF vs ECF. CM sent updated clinicals to [facility] and asked if they will still able to accept. However they declined stating he doesn't have skillable needs to admit for a SNF admit. And also can't admit as ECF as this is not covered by his payor. CM to follow. SIGNATURE: Eileen Peralta RN PATIENT NAME: Elia Weston DATE: October 21, 2024 TIME: 11:57 AM PT PNL PPP Collected: 10/21/2024 8:06 AM Status: F Source: [facility] Order Comment: Specimen Type : BLOOD SPECIMEN Ordering Facility: [facility] Address: [address] [place] [address] TYPE CODE TESTS RESULT OUT OF RANGE REFERENCE UNITS LAB 5902-2(LOINC) Prothrombin time 18.3 High 9.7-13.0 sec LAB 6301-6(LOINC) INR PPP 1.8 High 0.9-1.3 Result Comment: Vitamin K An tagonist (VKA) Therapeutic Range: INR 2 to 3 (Target INR of 2.5) Note: For patients treated with VKA drugs, such as warfarin, the [place] [employer] 2012 Guideline recommends a therapeutic INR range of 2 to 3 (target INR of 2.5). This recommendation includes high-risk patients with antiphospholipid syndrome with previous arterial or venous thromboembolism, current-generation mechanical or bioprosthetic aortic heart valve replacement. Note: Patients with mechanical aortic valve replacement and additional risk factors for thromboembolic events (atrial fibrillation, previous thromboembolism, LV dysfunction, hypercoagulable conditions) or an older generation mechanical AVR (i.e., ball in-Cage) or any mechanical MVR should have a INR therapeutic range of 2.5 to 3.5 (target INR of 3). Ranjit YOUSSEF, et al. Chest 2012, 141:7S-47S Kevin RA, et al. [facility] 2017, 70: 252-289 Performed By: #### PTTAC, 34 528-0 #### [facility] CLIA [id number] [address] [place] [address] [place] PTT, ANTICOAGULANT THERAPY Collected: 0 10/21/2024 8:06 AM Status: F Source: [facility] Order Comment: Specimen Type : BLOOD SPECIMEN Ordering Facility: [facility] Address: [address] [place] [address] TYPE CODE TESTS RESULT OUT OF RANGE REFERENCE UNITS LAB 84681-1(LOINC) aPTT PPP 60.8 High 23.0-32.4 sec Performed By: #### PTTAC, 34 528-0 #### [facility] CLIA [id number] [address] [place] [address] [place] CBC PNL BLD AUTO Collected: 8:06 AM Status: F Source: [facility] Order Comment: Specimen Type : BLOOD SPECIMEN Ordering Facility: [facility] Address: [address] [place] [address] TYPE CODE TESTS RESULT OUT OF RANGE REFERENCE UNITS LAB 6690-2(LOINC) WBC # Bld Auto 5.59 3.70-11.00 k/uL LAB 789-8(INC) RBC # Bld Auto 2.97 Low 4.20-6.00 m/uL LAB 718-7(INC) Hgb Bld-mCnc 8.2 Low 13.0-17.0 g/dL LAB 4544-3(INC) Hct VFr Bld Auto 27.9 Low 39.0-51.0 % LAB 787-2(INC) MCV RBC Auto 93.9 80.0-100.0 fL LAB 785-6(INC) MCH RBC Qn Auto 27.6 26.0-34.0 pg LAB 786-4([facility]) MCHC RBC Auto-mCnc 29.4 Low 30.5-36.0 g/dL LAB 25846-7([facility]) RDW RBC-Rto 18.8 High 11.5-15.0 % LAB 777-3([facility]) Platelet # Bld Auto 228 150-400 k/uL LAB 09609-1([facility]) PMV Bld Auto 11.3 9.0-12.7 fL LAB 771-6([facility]) nRBC # Bld Auto <0.01 <0.01 k/uL Performed By: #### 08309-4 # ### [facility] CLIA [id number] [address] [place] [address] [place] BAS METAB 2000 PNL SERPL Collected: 5:08 PM Status: F Source: [facility] Order Comment: Specimen Type : BLOOD SPECIMEN Ordering Facility: [facility] Address: [address] [place] [address] TYPE CODE TESTS RESULT OUT OF RANGE REFERENCE UNITS LAB 2345-7([facility]) Glucose SerPl-mCnc 87 74-99 mg/dL Result Comment: The [place] Diabetes Association (ADA) provides guidance for cutoff values for fasting glucose and random glucose. The ADA defines fasting as no caloric intake for at least 8 hours. Fasting plasma glucose results between 100 to 125 mg/dL indicate increased risk for diabetes (prediabetes). Fasting plasma glucose results greater than or equal to 126 mg/dL meet the criteria for diagnosis of diabetes. In the absence of unequivocal hyperglycemia, results should be confirmed by repeat testing. In a patient with classic symptoms of hyperglycemia or hyperglycemic crisis, random plasma glucose results greater than or equal to 200 mg/dL meet the criteria for diagnosis of diabetes. Reference: Standards of Medical Care in Diabetes 2016, [place] Diabetes Association. Diabetes Care. 2016.39(Suppl 1). LAB 3094-0(LOINC) BUN SerPl-mCnc 30 High 9-24 mg/ dL LAB 2160-0(LOINC) Creat SerPl-mCnc 8.34 High 0.73-1.22 mg/dL LAB 2951-2(LOINC) Sodium SerPl-sCnc 134 Low 136-144 mmol/L LAB 2823-3(LOINC) Potassium SerPl-sCnc 5.3 High 3.7-5.1 mmol/L LAB 2075-0(LOINC) Chloride SerPl-sCnc 94 Low 98-107 mmol/L LAB 2028-9(LOINC) CO2 SerPl-sCnc 25 22-30 mmo l/L LAB 97666-6(LOINC) Anion Gap SerPl-sCnc 15 8-15 mmol/L LAB 00670-7(LOINC) Calcium SerPl-mCnc 8.5 8.5-10.2 mg/dL LAB 82259-7(LOINC) Creatinine + eGFR Pnl SerPlBld 8 Low >=60 mL/min/1 .73m??? Result Comment: Estimated Gl omerular Filtration Rate (eGFR) is calculated using the 2020 CKD-EPI creatinine equation. This equation utilizes serum creatinine, sex, and age as parameters. The creatinine assay has traceable calibration to isotope dilution-mass spectrometry. Refer to KDIGO guidelines for clinical interpretation. In patients with unstable renal function, e.g. those with acute kidney injury, the eGFR may not accurately reflect actual GFR. Performed By: #### 43128-8 # ### [facility] CLIA [id number] [address] [place] [address] [place] CASE MANAGEM Observed: 10/20/2024 3:45 PM Status: COMPLETED Source: [facility] HNO ID: [id number] Author: EILEEN PERALTA RN Service: Care Management Author Type: Registered Nurse Type: Care Mgt Progress Note Filed: 10/20/2024 16:21 Note Text: CARE MANAGEMENT PROGRESS NOTE SERVICE DATE: 10/20/2024 SERVICE TIME: 3:45 PM LOS: 8 days Post-Acute Discharge Planning Patient Goal(s): General wellness Anticipated # of Days Until Discharge: 5 Transport at Discharge: Patient- self transport. Patient states he drove himself here, is parked here, and will transport himself at discharge. Needs Prior to Discharge: Needs Prior to Discharge: To Be Determined, Home Care Order, OT/PT Evaluation, Wound Care Post-Acute Discharge Plan: Pending medical clearance: Home with [facility] (referrals pending, F2F needed) vs Extended Care Facility private pay. Pending plan for dialysis access and INR to goal. [facility] CM following as patient was active outpatient dialysis ESRD on MWF. CM spoke with patient at bedside who was agitated, and unhappy to here that PT AND OT have skilled him for Home OT AND PT. He's adamant that he needs SNF placement, he states he can barely walk to the door of his room. He wants to speak with therapy. He would not continue further discussion on home care planning nor allow me to give him the Home health care options in his area. Primary provider notified. CM to follow. SIGNATURE: Eileen Peralta RN PATIENT NAME: Elia Weston DATE: October 20, 2024 TIME: 4:13 PM PROGRESS Observed: 10/20/2024 3:22 PM Status: COMPLETED Source: [facility] ID: [id number] Author: MATA BRIGGS MD Service: Hospital Medicine Author Type: Physician Type: Progress Notes Filed: 10/20/2024 15:34 Note Text: DEPARTMENT OF HOSPITAL MEDICINE PROGRESS NOTE SERVICE DATE: 10/20/2024 SERVICE TIME: 3:24 PM Hospital Medicine/Primary Attending: Mata Briggs MD NIGHT AND WEEKEND COVERAGE: [facility]IN [facility] COVERAGE: Days: [phone], please page Mata Briggs for patient issues. Nights: [phone], please page Team GIM 1: G/H 8th floor: [address]; Non 8th floor [address] Subjective INTERVAL HPI: Seen during dialysis. Feeling well with no complaints. Pain controlled. Current Facility-Administered Medications Medication Dose Route Frequency NaCl 0.9% iv flush bag 20 mL INTRAVENOUS PRN dextrose 15 gram/32 mL 15 g (TRUEPLUS) 15 g ORAL PRN Or glucagon 1 mg injection 1 mg INTRAMUSCULAR PRN Or dextrose 10% iv bolus 12.5 g INTRAVENOUS PRN midodrine 20 mg tab(s) (PROAMATINE) 20 mg ORAL q [address] 40 mg tab(s) (PROTONIX) 40 mg ORAL DAILY acetaminophen 650 mg tab(s) (TYLENOL) 650 mg ORAL q 6 H PRN sevelamer carbonate 2,400 mg tab(s) (RENVELA) 2,400 mg ORAL TID w MEALS melatonin 9 mg tab(s) 9 mg ORAL DAILY (8 PM) calcitriol 1.5 mcg cap(s) (ROCALTROL) 1.5 mcg ORAL MO-WE- midodrine 20 mg tab(s) (PROAMATINE) 20 mg ORAL PRN DIALYSIS Darbepoetin Os[place] In Polysorbat 60 mcg injection (ARANESP) 60 mcg SUBCUTANEOUS q MON B Complex-Vitamin C-Folic Acid 1 tablet tab(s) (JOHNSON-VIT) 1 tablet ORAL DAILY cinacalcet 60 mg tab(s) (SENSIPAR) 60 mg ORAL DAILY oxyCODONE IR 10 mg tab(s) (ROXICODONE) 10 mg ORAL q 4 H PRN HYDROmorphone 0.5 mg injection (DILAUDID) 0.5 mg INTRAVENOUS DAILY PRN heparin iv infusion 25,000 units in NaCl 0.45% 250 mL STANDARD NOMOGRAM 0-3,000 Units/hr INTRAVENOUS CONTINUOUS And heparin RATE CHANGE bolus 1,000-10,000 Units for subtherapeutic PTTAC results 1,000-10,000 Units INTRAVENOUS PRN polyethylene glycol 3350 17 g packet 17 g ORAL BID Objective PHYSICAL EXAM: BP 120/67 Pulse 64 Temp (Src) 97.2 (Axillary) Resp 18 Ht 5' 9.685 (1.77m) Wt 249 lb 1.9 oz (113.0kg) SpO2 100% BMI 36.07 kg/(m2). O2 Therapy: Continuous Positive Airway Pressure General: Alert and oriented, NAD HEENT: Mucous membranes moist Cardiac: RRR with audible valve click Chest: R lorena with site well appearing Lungs: Clear to auscultation bilaterally, no respiratory distress Abdomen: Soft, nontender, nondistended. Ext: Warm, well perfused, no edema Skin: Ulcerations on chest and abdomen covered with dressing. Lines, Drains, and Airways Line Duration Central Line Single Lumen Tunneled Right Neck -- days Dialysis / Apheresis Double Lumen 10/05/24 External Facility Tunneled Left Femoral 15 days Peripheral 10/12/24 0530 [facility] Short Right Forearm 20 Gauge 8 days Peripheral 10/19/24 1645 [facility] Short Left Forearm 20 Gauge <1 day Reviewed lines and needs to be continued: REASONS: Intravenous fluids DATA: Diagnostic tests reviewed for today's visit: CBC, Coags, BMP, Mg, Phos Recent Labs 10/20/24 0932 10/20/24 0423 10/19/24 2204 10/19/24 1431 10/19/24 0128 10/18/24 0746 WBC -- 5.17 -- -- 6.64 6.29 HB -- 8.3* -- -- 8.5* 8.4* HCT -- 28.7* -- -- 29.3* 28.9* PLT -- 228 -- -- 255 266 INR -- 1.8* -- -- 2.0* 2.0* APTT -- 59.8* 69.1* 49.5* 46.4* 78.3* NA 139 137 -- -- 135* 135* K 7.0* 5.6* -- -- 5.4* 6.0* CHLOR 91* 94* -- -- 94* 95* CO2 23 22 -- -- 25 23 BUN 37* 39* -- -- 23 42* CREAT 9.00* 9.39* -- -- 6.62* 10.08* GLUC 83 79 -- -- 90 74 CA 7.6* 8.3* -- -- 8.6 8.0* 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 Personal history of DVT (deep vein thrombosis) PAF (paroxysmal atrial fibrillation) ([facility]) History of stroke Hypotension, chronic Anemia due to stage 5 chronic kidney disease, not on chronic dialysis ([facility]) ([facility]) Status post Maze operation for atrial fibrillation Skin ulcer, limited to breakdown of skin (HCC) SVC syndrome Generalized weakness Impaired functional mobility, balance, gait, and endurance Secondary hyperparathyroidism, renal ([facility]) HOSPITAL COURSE: Justine Weston is a 44 year old male with h/o atrial fibrillation and severe mitral stenosis s/p mitral valve replacement with On-x valve, Maze procedure and RADHA clip on 08/21/2021, currently on Coumadin, ESRD on IHD via left femoral vein TDC on [facility] ), 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 He also expressed a poor pain control on oxycodone. Patient follows with pain management as outpatient for pain associated with chest and abdominal wounds. He currently takes oxycodone 10 mg every 8 hours. Denied fevers or foul-smelling discharge from both wounds. Receiving wound care at home. 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 - Vascular surgery input appreciated -- no surgical intervention available. - IR planning to take to OR on 10/22 for venogram, angioplasty, Lorena removal and TDC placement in the chest (needs INR <1.5, holding coumadin) Chest and abdomen ulcerations - No overt evidence of infection, observing off abx - Evaluated by dermatology and s/p biopsy, continuing wound care in the meantime. Follow biopsy result - Pain control with prn oxycodone, dilaudid for breakthrough, appreciate pain med input. Atrial fibrillation and severe mitral stenosis s/p mechanical mitral valve replacement with On-x valve (INR goal 2.5-3.5), Maze procedure and RADHA clip on 08/21/2021. - Cont heparin gtt, - HOLD coumadin in anticipation of OR ESRD on hemodialysis via left femoral vein TDC on [facility] Hyperkalemia - Nephrology following and optimizing HD - Alfred + optimize bowel regimen. - Renal diet Anemia of ESRD -Hb at baseline(8.0-8.5) GERD -continue pantoprazole Obesity YEIMY on CPAP Secondary hyperparathyroidism -continue calcitriol, Cinacalcet, sevelamer Exogenous Class 2 Obesity Medication and Non-Pharmacologic VTE Prophylaxis/Anticoagulants Anticoagulant AND Antiplatelet Medications (From admission, onward) Start Dose Route Frequency Last Action Ordered Stop 10/18/24 1230 heparin iv infusion 25,000 units in NaCl 0.45% 250 mL STANDARD NOMOGRAM (Heparin Infusion + Bolus for Subtherapeutic PTTAC) 0-30 mL/hr Placed in And Linked Group 0-3,000 Units/hr INTRAVENOUS CONTINUOUS Rate Verify, 10/20 0500 10/18/24 1213 -- 10/12/24 1111 activity - mobilize patient (nj,ms) VTE Prophylaxis: VTE prophylaxis appropriate Disposition: SNF, [facility] assistance Plan of care discussed with Provider, RN, Patient SIGNATURE: Mata Briggs MD PATIENT NAME: Elia Weston ALLIED HEALTH Observed: 10/20/2024 1:50 PM Status: COMPLETED Source: [facility] HNO ID: [id number] Author: SHANNON HOOD Music Therapist Service: Music Therapy Author Type: Therapist Type: Allied Health Filed: 10/21/2024 08:57 Note Text: MUSIC THERAPY NOTE SERVICE DATE: 10/20/2024 SERVICE TIME: 1:46 PM COMMENTS: Pt was out of the room/off the floor when music therapy session was attempted this afternoon. Sorry we missed you card left on bedside table. Music therapy will follow up as able. SIGNATURE: Carmela Whitney PATIENT NAME: Elia Weston DATE: October 21, 2024 TIME: 8:56 AM PAGER/CONTACT #: [phone] CONSULT PROG Observed: 10/20/2024 10:06 AM Status: COMPLETED Source: [facility] HNO ID: [id number] Author: ELVA PATEL APRN.FLORAL ASSOCIATE Service: ? Author Type: Nurse Practitioner Type: Consult Progress Note Filed: 10/20/2024 10:42 Note Text: Department of Kidney Medicine Medical Specialties [place] [facility] NEPHROLOGY CONSULT SERVICE PROGRESS NOTE INTERVAL HISTORY: CT chest yesterday with IVCON to further evaluate SVC syndome and access - in process Patient seen on IHD. Orders placed and confirmed in [facility] Patient requesting 4-5 L of UF>> will UF as tolerates using 13 mL/kf/hr Admission weight: 113.4 kg (250 lb) Last recorded weight: 113 kg (249 lb 1.9 oz) heparin, Last Rate: 1,900 Units/hr (10/20/24 0500) MEDICATIONS: Current Facility-Administered Medications Medication Dose Route Frequency NaCl 0.9% iv flush bag 20 mL INTRAVENOUS PRN dextrose 15 gram/32 mL 15 g (TRUEPLUS) 15 g ORAL PRN Or glucagon 1 mg injection 1 mg INTRAMUSCULAR PRN Or dextrose 10% iv bolus 12.5 g INTRAVENOUS PRN midodrine 20 mg tab(s) (PROAMATINE) 20 mg ORAL q 8 H polyethylene glycol 3350 17 g packet 17 g ORAL DAILY pantoprazole DR 40 mg tab(s) (PROTONIX) 40 mg ORAL DAILY acetaminophen 650 mg tab(s) (TYLENOL) 650 mg ORAL q 6 H PRN sevelamer carbonate 2,400 mg tab(s) (RENVELA) 2,400 mg ORAL TID w MEALS melatonin 9 mg tab(s) 9 mg ORAL DAILY (8 PM) calcitriol 1.5 mcg cap(s) (ROCALTROL) 1.5 mcg ORAL MO-WE- midodrine 20 mg tab(s) (PROAMATINE) 20 mg ORAL PRN DIALYSIS Darbepoetin Osiot In Polysorbat 60 mcg injection (ARANESP) 60 mcg SUBCUTANEOUS q MON B Complex-Vitamin C-Folic Acid 1 tablet tab(s) (JOHNSON-VIT) 1 tablet ORAL DAILY warfarin 5 mg tab(s) (COUMADIN) 5 mg ORAL DAILY - WARFARIN cinacalcet 60 mg tab(s) (SENSIPAR) 60 mg ORAL DAILY oxyCODONE IR 10 mg tab(s) (ROXICODONE) 10 mg ORAL q 4 H PRN HYDROmorphone 0.5 mg injection (DILAUDID) 0.5 mg INTRAVENOUS DAILY PRN heparin iv infusion 25,000 units in NaCl 0.45% 250 mL STANDARD NOMOGRAM 0-3,000 Units/hr INTRAVENOUS CONTINUOUS And heparin RATE CHANGE bolus 1,000-10,000 Units for subtherapeutic PTTAC results 1,000-10,000 Units INTRAVENOUS PRN iv contrast (radiology procedure) INTRAVENOUS DIRECTED PRN ALLERGIES: Gabapentin and Trazodone VITAL SIGNS: BP 120/67 Pulse 64 Temp 36.2 ?C (97.2 ?F) (Axillary) Resp 18 Ht 177 cm (5' 9.69) Wt 113 kg (249 lb 1.9 oz) SpO2 100% BMI 36.07 kg/m? PHYSICAL EXAM: GENERAL: awake, alert, in no acute distress, cooperative, lying in bed SKIN: Skin color, texture, turgor normal. No rashes or lesions. HEENT: normocephalic, perrl, moist oral mucosa NECK: no JVD, masses or bruits LUNGS: Good diaphragmatic excursion and normal respiratory effort. CARDIAC: RRR ABDOMEN: soft, EXTREMITIES:generalized edema NEURO: AOx3, normal speech, muscle strength grossly intact ACCESS: L femoral TDC accessed with normal findings Lines, Drains, and Airways Line Duration Central Line Single Lumen Tunneled Right Neck -- days Dialysis / Apheresis Double Lumen 10/05/24 External Facility Tunneled Left Femoral 15 days Peripheral 10/12/24 0530 [facility] Short Right Forearm 20 Gauge 8 days Peripheral 10/19/24 1645 [facility] Short Left Forearm 20 Gauge <1 day Labs: Recent Labs 10/20/24 0423 10/19/24 2204 10/19/24 1431 10/19/24 0128 10/18/24 0746 WBC 5.17 -- -- 6.64 6.29 HB 8.3* -- -- 8.5* 8.4* HCT 28.7* -- -- 29.3* 28.9* PLT 228 -- -- 255 266 INR -- -- -- 2.0* 2.0* APTT 59.8* 69.1* 49.5* 46.4* 78.3* NA -- -- -- 135* 135* K -- -- -- 5.4* 6.0* CHLOR -- -- -- 94* 95* CO2 -- -- -- 25 23 ANION -- -- -- 16* 17* BUN -- -- -- 23 42* CREAT -- -- -- 6.62* 10.08* GLUC -- -- -- 90 74 CA -- -- -- 8.6 8.0* ASSESSMENT: 44 year old male with Pmhx of Afib, hx MVR on coumadin, ESRD on HD MWF, hyperparathyroidism, HTN, hx of SVC syndrome, HLD, obesity and YEIMY presenting with complaint of painful chronic chest wound and missed dialysis. Of note, he was recently admitted for a dislodged catheter and had femoral TDC 50cm replacement 10/07/24. Course has been complicated by SVC syndrome workup, with a history of complication of multiple bilateral IJ TDC placement/associated thrombosis also leading to chest wall and abdominal varices. Vascular surgery was consulted. Nephrology consulted for ESRD management 1. ESRD Hx First HD: 2005 Unit: [facility] Najma Configuration Release Manager: Dr. Melendez Days: EDW: 114.1 kg Time: 4.5 hrs Access: L Fem TDC SHPT: rocaltrol 1.5mcg TIW, sensipar 60mg daily, PTH 1500 Heparin: 10,000u bolus 2. Electrolytes: -Potassium - hyperkalemia - will modulate with 2K bath in DRYWALL SANDER -Sodium -134 3. Volume status: -hypervolemic - BP 110/65 -Midodrine - Pre weight : 124.9 kg?>>need standing weights 4. Acid-base: - AGMA - will modulate with DRYWALL SANDER 5. Ca/P/Pth/Bone mineral disease: - Sevelamer with meals. Sensipar daily and Calcitriol on dialysis days -previous punch bx in 2022 was not consistent with calciphylaxis 6. Anemia of CKD below goal, high ferritin PLAN: - HD today F250, Qb400, UF 4-5L, 4 hrs 15 minutes (noted 4.5 hrs at outpatient unit) - next session Friday () - EDW 114kg - continue Aranesp QMonday - nephrocaps - renvela with meals -need STANDING WEIGHTS - has not been completed since 10/12 Consent for DRYWALL SANDER: ESRD Outpatient dialysis disposition plan: contact [phone] and ask to speak with the director of front office as needed for assistance with post-discharge arrangements. Please DO NOT schedule patient for a nephrology follow up appointment. Kidney care will be provided by the primary data warehousing engineer at their dialysis unit upon hospital discharge. Elva Patel APRN.FLORAL ASSOCIATE Nephrology and Hypertension [facility] October 20, 2024 10:06 AM PAGER # [phone] Disclosures: Parts of the current progress note may have been copied from a previous note. FOR AFTER HOUR CONCERNS BETWEEN 5PM - 7AM CONTACT ON-CALL NEPHROLOGY FELLOW [id number] THERAPY NT Observed: 10/20/2024 9:58 AM Status: COMPLETED Source: [facility] HNO ID: [id number] Author: ELLIE ALFORD OT/L Service: Occupational Therapy Author Type: Occupational Therapist Type: Therapy (PT/OT/Speech/Resp) Filed: 10/20/2024 09:58 Note Text: OCCUPATIONAL THERAPY MISSED VISIT SERVICE DATE: 10/20/2024 SERVICE TIME: 0958 ROOM: [place] [address] ([address]) Patient not seen due to Test / Procedure. SIGNATURE: JASWINDER Sawyer PATIENT NAME: Elia Weston DATE: October 20, 2024 TIME: 9:58 AM THERAPY NT Observed: 10/20/2024 9:41 AM Status: COMPLETED Source: [facility] HNO ID: [id number] Author: MARÍA ESPARZA PT DPT Service: Physical Therapy Author Type: Bicycle Subassembler Type: Therapy (PT/OT/Speech/Resp) Filed: 10/20/2024 11:05 Note Text: Attestation signed by María Esparza PT DPT at 10/20/2024 11:05 AM I reviewed and agree with the documentation corresponding to this therapy visit. SIGNATURE: María Esparza PT DPT DATE: October 20, 2024 TIME: 11:05 AM PHYSICAL THERAPY MISSED VISIT SERVICE DATE: 10/20/2024 SERVICE TIME: 0940 ROOM: [place] [address] ([facility]) Patient not seen due to Test / Procedure. SIGNATURE: Kit Han PTA PATIENT NAME: Elia Weston DATE: October 20, 2024 TIME: 9:41 AM BAS METAB 1999 PNL SERPL Collected: 9:32 AM Status: F Source: [facility] Order Comment: Specimen Type : BLOOD SPECIMEN Ordering Facility: [facility] Address: [address] [place] [address] TYPE CODE TESTS RESULT OUT OF RANGE REFERENCE UNITS LAB 2345-7(LOINC) Glucose SerPl-mCnc 83 74-99 mg/dL Result Comment: The [place] Diabetes Association (ADA) provides guidance for cutoff values for fasting glucose and random glucose. The ADA defines fasting as no caloric intake for at least 8 hours. Fasting plasma glucose results between 100 to 125 mg/dL indicate increased risk for diabetes (prediabetes). Fasting plasma glucose results greater than or equal to 126 mg/dL meet the criteria for diagnosis of diabetes. In the absence of unequivocal hyperglycemia, results should be confirmed by repeat testing. In a patient with classic symptoms of hyperglycemia or hyperglycemic crisis, random plasma glucose results greater than or equal to 200 mg/dL meet the criteria for diagnosis of diabetes. Reference: Standards of Medical Care in Diabetes 2016, [place] Diabetes Association. Diabetes Care. 2016.39(Suppl 1). LAB 3094-0(LOINC) BUN SerPl-mCnc 37 High 9-24 mg/ dL LAB 2160-0(LOINC) Creat SerPl-mCnc 9.00 High 0.73-1.22 mg/dL LAB 2951-2(LOINC) Sodium SerPl-sCnc 139 136-144 mmol/L LAB 2823-3(LOINC) Potassium SerPl-sCnc 7.0 High Alert 3.7-5.1 mmol/L LAB 2075-0(LOINC) Chloride SerPl-sCnc 91 Low 98-107 mmol/L LAB 2028-9(LOINC) CO2 SerPl-sCnc 23 22-30 mmo l/L LAB 07585-0(LOINC) Anion Gap SerPl-sCnc 25 High 8-15 mmol/L LAB 79823-3(LOINC) Calcium SerPl-mCnc 7.6 Low 8.5-10.2 mg/dL LAB 75869-7(LOINC) Creatinine + eGFR Pnl SerPlBld 7 Low >=60 mL/min/1 .73m??? Result Comment: Estimated Gl omerular Filtration Rate (eGFR) is calculated using the 2020 CKD-EPI creatinine equation. This equation utilizes serum creatinine, sex, and age as parameters. The creatinine assay has traceable calibration to isotope dilution-mass spectrometry. Refer to KDIGO guidelines for clinical interpretation. In patients with unstable renal function, e.g. those with acute kidney injury, the eGFR may not accurately reflect actual GFR. Performed By: #### 86871-3 # ### [facility] CLIA [id number] [address] [place] [address] [place] CONSULT PROG Observed: 10/20/2024 8:59 AM Status: COMPLETED Source: [facility] HNO ID: [id number] Author: ROSA MOE APRN.CNP Service: Interventional Radiology Author Type: Nurse Practitioner Type: Consult Progress Note Filed: 10/20/2024 10:56 Note Text: INTERVENTIONAL RADIOLOGY SERVICE PROGRESS NOTE SERVICE DATE: October 20, 2024 SERVICE TIME: 9:00 AM Subjective HPI: 10/15/24 44 year old male with a PMH significant for AFib, chronic anemia, mechanical mitral valve replacement (on Coumadin), ESRD on iHD MWF via left femoral vein TDC (placed by [facility] IR ), HLD, HTN, obesity, secondary hyperparathyroidism, 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 He presented ED with complaints of worsening chronic pain related to wounds. Chest, abdomen, and back wounds have been present for more than 3 years. While admitted, it was recommended that RIJ Lorena catheter be removed since it was not being used. Patient reports RIJ Lorena catheter placed at 06/15/2024 as the first part of a [address] venous stents. The goal was to improve circulation to aid in healing of his chronic wounds. Unfortunately, he was not contacted to arrange the 2nd part of the procedure at d/t his vascular physician leaving . Patient denies history of associated symptoms including SOB, difficulty breathing, difficulty swallowing, dizziness, lightheadedness, HAs, neck/arm/facial swelling, visual changes, and vocal hoarseness. He endorses severe pain associated with chest, back, and abdominal wounds. IR team is consulted SVC syndrome treatment. Plan: - CT venogram chest/abdomen/pelvis with IVCON. Place order for CTA chest, abdomen, and pelvis with IVCON. In comment section, state CT venogram. - IR plan TBD pending CT venogram results. SUBJECTIVE: Patient seen in dialysis. Discussed CTA chest was reviewed by IR. Unable to place stents due to occluded subclavian and IJ veins. IR can attempt venogram, angioplasty, Lorena removal and TDC placement in the chest under PAOLA. Patient requesting Vascular Surgery to see him again today to confirm there are no options for a graft or fistula. He is amendable to proceed with IR procedure if no options available from Vascular Surgery standpoint. Objective OBJECTIVE: BP 120/67 Pulse 64 Temp 36.2 ?C (97.2 ?F) (Axillary) Resp 18 Ht 177 cm (5' 9.69) Wt 113 kg (249 lb 1.9 oz) SpO2 100% BMI 36.07 kg/m? Physical Exam: GENERAL: Alert, no distress, cooperative LUNGS: Good diaphragmatic excursion NEURO: AANDOx3 RT CHEST: Lorena catheter present. Wounds present near nipple line. Recent Labs 10/20/24 0423 10/19/24 2204 10/19/24 1431 10/19/24 0128 10/18/24 0746 WBC 5.17 -- -- 6.64 6.29 HB 8.3* -- -- 8.5* 8.4* HCT 28.7* -- -- 29.3* 28.9* PLT 228 -- -- 255 266 INR -- -- -- 2.0* 2.0* APTT 59.8* 69.1* 49.5* 46.4* 78.3* NA -- -- -- 135* 135* K -- -- -- 5.4* 6.0* CHLOR -- -- -- 94* 95* CO2 -- -- -- 23 BUN -- -- -- 23 42* CREAT -- -- -- 6.62* 10.08* GLUC -- -- -- 90 74 CA -- -- -- 8.6 8.0* CMP: Glucose 90 10/19/2024 BUN 23 10/19/2024 Creatinine 6.62 10/19/2024 Sodium 135 10/19/2024 Potassium 5.4 10/19/2024 Chloride 94 10/19/2024 CO2 Content, Venous 25 10/19/2024 Protein, Total 8.5 10/12/2024 Albumin 3.9 10/12/2024 Calcium 8.6 10/19/2024 Alkaline Phosphatase 179 10/12/2024 Bilirubin, Total 0.3 10/12/2024 AST 16 10/12/2024 ALT 13 10/12/2024 Date 10/19/24 0700 - 10/20/24 0659 10/20/24 0700 - 10/21/24 0659 Shift 8325-6765 7169-1248 8091-0894 24 Hour Total 4394-6176 5635-5309 7087-4731 24 Hour Total INTAKE PO 480 240 720 PO 480 240 720 Shift Total 480 240 720 OUTPUT Urine Urine Not Saved. 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 IR team was initially consulted for SVC syndrome.Recommendations were made for CT venogram chest/abdomen/pelvis. CTA A/P completed on 10/17. CTA chest completed on 10/19. - CTA chest reviewed by IR staff, Dr. Hogue - Unable to place stents due to occluded IJ and subclavian veins on imaging - Plan for venogram, angioplasty, Lorena removal and TDC placement in the chest - PAOLA - Will need updated TANDS and INR will need to be < 1.5 for procedure - NPO at midnight prior to procedure - Discussed with primary team Thank you for the opportunity to share in the medical care of this patient. Please page [phone] or call [phone] if we can be of immediate assistance. For concerns between 4:00PM-7:00AM contact the on-call IR fellow / resident at pager [phone] SIGNATURE: Rosa Moe APRN.CNP PATIENT NAME: Elia Weston DATE: October 20, 2024 TIME: 9:00 AM CBC PNL BLD AUTO Collected: 4:23 AM Status: F Source: [facility] Order Comment: Specimen Type : BLOOD SPECIMEN Ordering Facility: [facility] Address: [address] [place] [address] TYPE CODE TESTS RESULT OUT OF RANGE REFERENCE UNITS LAB 6690-2([facility]) WBC # Bld Auto 5.17 3.70-11.00 k/uL LAB 789-8(INC) RBC # Bld Auto 2.96 Low 4.20-6.00 m/uL LAB 718-7([facility]) Hgb Bld-mCnc 8.3 Low 13.0-17.0 g/dL LAB 4544-3([facility]) Hct VFr Bld Auto 28.7 Low 39.0-51.0 % LAB 787-2(INC) MCV RBC Auto 97.0 80.0-100.0 fL LAB 785-6([facility]) MCH RBC Qn Auto 28.0 26.0-34.0 pg LAB 786-4([facility]) MCHC RBC Auto-mCnc 28.9 Low 30.5-36.0 g/dL LAB 07749-1([facility]) RDW RBC-Rto 19.1 High 11.5-15.0 % LAB 777-3(INC) Platelet # Bld Auto 228 150-400 k/uL LAB 65841-6([facility]) PMV Bld Auto 11.2 9.0-12.7 fL LAB 771-6([facility]) nRBC # Bld Auto <0.01 <0.01 k/uL Performed By: #### 61834-1 # ### [facility] CLIA [id number] [address] [place] [address] [place] BAS METAB 2000 PNL SERPL Collected: 4:23 AM Status: F Source: [facility] Order Comment: Specimen Type : BLOOD SPECIMEN Ordering Facility: [facility] Address: [address] [place] [address] TYPE CODE TESTS RESULT OUT OF RANGE REFERENCE UNITS LAB 2345-7(LOINC) Glucose SerPl-mCnc 79 74-99 mg/dL Result Comment: The [place] Diabetes Association (ADA) provides guidance for cutoff values for fasting glucose and random glucose. The ADA defines fasting as no caloric intake for at least 8 hours. Fasting plasma glucose results between 100 to 125 mg/dL indicate increased risk for diabetes (prediabetes). Fasting plasma glucose results greater than or equal to 126 mg/dL meet the criteria for diagnosis of diabetes. In the absence of unequivocal hyperglycemia, results should be confirmed by repeat testing. In a patient with classic symptoms of hyperglycemia or hyperglycemic crisis, random plasma glucose results greater than or equal to 200 mg/dL meet the criteria for diagnosis of diabetes. Reference: Standards of Medical Care in Diabetes 2016, [place] Diabetes Association. Diabetes Care. 2016.39(Suppl 1). LAB 3094-0(LOINC) BUN SerPl-mCnc 39 High 9-24 mg/ dL LAB 2160-0(LOINC) Creat SerPl-mCnc 9.39 High 0.73-1.22 mg/dL LAB 2951-2(LOINC) Sodium SerPl-sCnc 137 136-144 mmol/L LAB 2823-3(LOINC) Potassium SerPl-sCnc 5.6 High 3.7-5.1 mmol/L LAB 2075-0(LOINC) Chloride SerPl-sCnc 94 Low 98-107 mmol/L LAB 2028-9(LOINC) CO2 SerPl-sCnc 22 22-30 mmo l/L LAB 43876-6(LOINC) Anion Gap SerPl-sCnc 21 High 8-15 mmol/L LAB 47343-1(LOINC) Calcium SerPl-mCnc 8.3 Low 8.5-10.2 mg/dL LAB 68861-7(LOINC) Creatinine + eGFR Pnl SerPlBld 7 Low >=60 mL/min/1 .73m??? Result Comment: Estimated Gl omerular Filtration Rate (eGFR) is calculated using the 2020 CKD-EPI creatinine equation. This equation utilizes serum creatinine, sex, and age as parameters. The creatinine assay has traceable calibration to isotope dilution-mass spectrometry. Refer to KDIGO guidelines for clinical interpretation. In patients with unstable renal function, e.g. those with acute kidney injury, the eGFR may not accurately reflect actual GFR. Performed By: #### 45540-7 # ### [facility] CLIA [id number] [address] [place] [address] PTT, ANTICOAGULANT THERAPY Collected: 0 10/20/2024 4:23 AM Status: F Source: [facility] Order Comment: Specimen Type : BLOOD SPECIMEN Ordering Facility: [facility] Address: [address] [place] [address] TYPE CODE TESTS RESULT OUT OF RANGE REFERENCE UNITS LAB 23583-9(LOINC) aPTT PPP 59.8 High 23.0-32.4 sec Performed By: #### PTTAC, 34 528-0 #### [facility] CLIA [id number] [address] [place] [address] [place] PT PNL PPP Collected: 10/20/2024 4:23 AM Status: F Source: [facility] Order Comment: Specimen Type : BLOOD SPECIMEN Ordering Facility: [facility] Address: [address] [place] [address] TYPE CODE TESTS RESULT OUT OF RANGE REFERENCE UNITS LAB 5902-2(LOINC) Prothrombin time 18.8 High 9.7-13.0 sec LAB 6301-6(LOINC) INR PPP 1.8 High 0.9-1.3 Result Comment: Vitamin K An tagonist (VKA) Therapeutic Range: INR 2 to 3 (Target INR of 2.5) Note: For patients treated with VKA drugs, such as warfarin, the [place] [employer]icians 2012 Guideline recommends a therapeutic INR range of 2 to 3 (target INR of 2.5). This recommendation includes high-risk patients with antiphospholipid syndrome with previous arterial or venous thromboembolism, current-generation mechanical or bioprosthetic aortic heart valve replacement. Note: Patients with mechanical aortic valve replacement and additional risk factors for thromboembolic events (atrial fibrillation, previous thromboembolism, LV dysfunction, hypercoagulable conditions) or an older generation mechanical AVR (i.e., ball in-Cage) or any mechanical MVR should have a INR therapeutic range of 2.5 to 3.5 (target INR of 3). Ranjit GH, et al. Chest 2012, 141:7S-47S Kevin RA et al. JACC 2017, 70: 252-289 Performed By: #### PTTAC, 34 528-0 #### [facility] CLIA [id number] [address] [place] [address] [place] PTT, ANTICOAGULANT THERAPY Collected: 0 10/19/2024 10:04 PM Status: F Source: [facility] Order Comment: Specimen Type : BLOOD SPECIMEN Ordering Facility: [facility] Address: [address] [place] [address] TYPE CODE TESTS RESULT OUT OF RANGE REFERENCE UNITS LAB 80410-6(LOINC) aPTT PPP 69.1 High 23.0-32.4 sec Performed By: #### PTTAC ### # [facility] CLIA [id number] [address] [place] [address] PROGRESS Observed: 10/19/2024 5:48 PM Status: COMPLETED Source: [facility] HNO ID: [id number] Author: GRACIE HUMPHRIES RT(R) Service: Radiology Author Type: Technologist Type: Progress Notes Filed: 10/19/2024 17:49 Note Text: Radiology Service Progress Note DATE OF SERVICE: October 19, 2024 TIME: 5:48 PM PATIENT IDENTITY VERIFICATION COMPLETED USING TWO (2) STANDARD IDENTIFIERS: Name and Date of confirmed by patient verbally and Name and Date of confirmed by identification band. FALL SCREENING: Has the patient had 2 falls in the last year or 1 fall with injury or currently using an Ambulatory Assistive Device (Walker, Cane, Wheelchair, Crutches, etc.)? Inpatient: Screened on floor PATIENT GENDER DATA: Assigned male at PATIENT RELEVANT IMPLANT DATA REVIEWED: Yes PATIENT PRESENTS WITH AN IMPLANTABLE OR ATTACHED EMBEDDED SOFTWARE ARCHITECT: No ALLERGIES: Reviewed and unchanged CONTRAST ALLERGY: NO. EXAM: CT -CONTRAST INDUCED NEPHROPATHY RISK FACTORS: Not applicable CREATININE: Creatinine Date Value Ref Range Status 10/19/2024 6.62 (H) 0.73 - 1.22 mg/dL Final 10/18/2024 10.08 (H) 0.73 - 1.22 mg/dL Final 10/17/2024 8.35 (H) 0.73 - 1.22 mg/dL Final Estimated Glomerular Filtration Rate Date Value Ref Range Status 10/19/2024 10 (L) >=60 mL/min/1.73m? Final Comment: Estimated Glomerular Filtration Rate (eGFR) is calculated using the 2020 CKD-EPI creatinine equation. This equation utilizes serum creatinine, sex, and age as parameters. The creatinine assay has traceable calibration to isotope dilution-mass spectrometry. Refer to KDIGO guidelines for clinical interpretation. In patients with unstable renal function, e.g. those with acute kidney injury, the eGFR may not accurately reflect actual GFR. eGFR- Date Value Ref Range Status 11/08/2021 12 Final P.O.C.T. RESULTS: POC done: Yes, See Lab Tab October 19, 2024 TREATMENT: N/A-dialysis PERIPHERAL IV DATA: Inpatient - refer to LDA documentation RADIOLOGY DEPARTMENT: CT; Exam(s) Completed: CTA Chest SIGNATURE: Gracie Humphries RT(R) PATIENT NAME: Elia Weston DATE: October 19, 2024 TIME: 5:48 PM CTA CHEST (NONGATED) W IVCON Observed: 0 10/19/2024 5:48 PM Status: F Source: [facility] * * *Final Report* * * DATE OF EXAM: Oct 19 2024 5:48PM [facility] 0123 - CTA CHEST (NONGATED) W IVCON / PROCEDURE REASON: Other primary vasculopathy * * * * Physician Interpretation * * * * CT ANGIOGRAM OF THE CHEST HISTORY: 44-year-old male with history of vasculopathy with vena cava syndrome and brachycephalic chronic occlusive disease. TECHNIQUE: High-resolution contrast-enhanced helical CT of the chest was performed, timed to the venous phase (2 minute delay). 3-D processing was performed by the physician on an independent work station, with MIP and volume-rendering techniques. Total of 100 ml of Omnipaque 350 was injected IV during the examination. The study was performed without oral contrast. The patient tolerated the injection without complications. Dose-Length Product (DLP): 1983 mGy*cm. CT Dose Reduction Employed: Automated exposure control (AEC) RESULT: COMPARISON: CTA 03/18/2024. LIMITATIONS: None CHEST: Provider Relations Coordinator (topogram) images: No additional findings. Vascular: Left: There is severe stenosis of the left brachiocephalic vein. The left subclavian vein is occluded proximally with abrupt cut off of contrast at the level of the first rib. Extensive venous collateralization throughout the neck chest ramirez. The contrast instead transmits inferiorly into the venous collaterals within the chest wall and drains into the azygous system. Right: Severe stenosis of the right brachiocephalic artery. The right subclavian vein is occluded with abrupt cut off of contrast at the level of the first rib. The contrast transmits inferiorly into the venous collaterals in the chest wall and ultimately drains into the azygous system. Right innominate artery, right common carotid artery, left common carotid artery, and left subclavian artery are normal in appearance without significant focal stenosis or aneurysmal dilation.. Pulmonary arteries: Normal appearance of the pulmonary arteries without central dilation, truncation, webs, or filling defects. Lines, tubes, and devices: Mitral valve replacement with left atrial appendage clip. Right-sided central venous catheter with tip terminating at the upper right atrium. Lung parenchyma and airways: Consolidative and groundglass opacities in the left lower lobe may represent atelectasis. Trace left pneumothorax. Pleural space: No pleural effusion. No pleural thickening. Lower neck, lymph nodes, and mediastinum: The imaged thyroid gland is normal. Enlarged mediastinal and axillary lymph nodes. For example a 1.0 cm left para-aortic lymph node (2:57), and a 1.3 cm right axillary lymph node (2:80). Heart and pericardium: The cardiac chambers are normal in size. No coronary artery atherosclerotic calcifications are noted, although the study is not optimized for coronary assessment. No pericardial effusion or thickening. Bones and soft tissues: Patient status post median sternotomy. Dextroscoliosis of the thoracic spine. Upper abdomen: Femoral venous catheter with tip at the cavoatrial junction. IMPRESSION: 1. 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 Extensive venous collaterals with bilateral venous return via the azygos and hemiazygos systems. 2. Left basilar consolidative and groundglass opacities may represent atelectasis although superimposed infection cannot be ruled out. Trace left pneumothorax. 3. Mediastinal and axillary lymphadenopathy. Residential Driver: AZAM Transcribe Date/Time: Oct 20 2024 10:02A Dictated by : ANGELINE MCCOY MD This examination was interpreted and the report reviewed and electronically signed by: MANASA WRIGHT MD on Oct 20 2024 10:40AM EST [id number] PTT, ANTICOAGULANT THERAPY Collected: 0 10/19/2024 2:31 PM Status: F Source: [facility] Order Comment: Specimen Type : BLOOD SPECIMEN Ordering Facility: [facility] Address: [address] [place] [address] TYPE CODE TESTS RESULT OUT OF RANGE REFERENCE UNITS LAB 30222-4(LOINC) aPTT PPP 49.5 High 23.0-32.4 sec Performed By: #### PTTAC ### # [facility] CLIA [id number] [address] [place] [address] ALLIED HEALTH Observed: 10/19/2024 1:28 PM Status: COMPLETED Source: [facility] HNO ID: [id number] Author: SHANNON HOOD Music Therapist Service: Music Therapy Author Type: Therapist Type: Allied Health Filed: 10/19/2024 13:30 Note Text: MUSIC THERAPY NOTE SERVICE DATE: 10/19/2024 SERVICE TIME: 10:51 AM Referred By: PT Reason for Referral: Need for Self-Expression, Relaxation COMMENTS: Referral received and appreciated. Music therapy visit attempted on this date. Unfortunately, pt was unavailable at time of attempt due to being with another service/provider (OT). Music therapy will follow up as able. SIGNATURE: Carmela Whitney Therapist PATIENT NAME: Elia Weston DATE: October 19, 2024 TIME: 1:28 PM PAGER/CONTACT #: [phone] CONSULT Observed: 10/19/2024 1:13 PM Status: COMPLETED Source: [facility] HNO ID: [id number] Author: YOLANDA WEI MD Service: Vascular Surgery Author Type: Physician Type: Consults Filed: 10/19/2024 15:40 Note Text: [facility] INITIAL CONSULT Service Date: 10/19/2024 Admit Date: 10/12/2024 Service Time: 1:14 PM LOS: 7 Vascular Physician: Yolanda Wei MD Subjective Chief Complaint: SVC syndrome with difficult access, vascular surgery consulted for evaluation of stenotic vessels, possible repair, detention access. HPI: Elia Weston is a 44 year old male who was admitted for chronic wounds, with PMH of severe MS s/p MVR, MAZE, on coumadin, ESRD on IHD via LLE TDC (MWF), SVC syndrome due to bilateral IJ TDC placement and thrombosis, YEIMY, chronic wounds (chest and abdomen). He was originally admitted for abdominal wounds. He currently has a TDC in his left leg which we visualized at bedside, and an old graft site at his R leg/groin. We also observed his chronic wounds on his chest and abdomen which he believes is from a chronic lack of blood flow leading to ulceration. These wounds are very tender. They are imaged in the imaging tab of [facility]. He notes he has had no numbness or pain associated with the syndrome. IR is also consulted for SVC syndrome and access. That team is currently awaiting a CT chest with venogram. On exam, he has palpable DP and non palpable but multiphasic PT bilaterally. PAST MEDICAL HISTORY Diagnosis Date Anemia of chronic disorder Anuria Atrial fibrillation (HCC) 12/02/2018 on Coumadin and Amiodarone BMI 40.0-44.9, adult ([facility]) ESRD (end stage renal disease) on dialysis ([facility]) 2005 ESRD from HTN Dialysis M,W,[facility] [phone] Essential hypertension, benign 1998 EKG 09/30 NL. Hearing loss of both ears History of mitral valve stenosis Hx of bacterial endocarditis Hyperparathyroidism due to end stage renal disease on dialysis ([facility]) Kidney disease 2005 ESRD due to HTN; on IHD since 2005 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 and scoliosis h/o this 3 y. Dx by xray. Mechanical complication of arteriovenous fistula surgically created ([facility]) Mechanical complication of dialysis catheter ([facility]) Mitral valve disease Morbid obesity ([facility]) MS (mitral stenosis) 10/08/2018 Transesophageal US YEIMY on CPAP Paroxysmal atrial fibrillation ([facility]) PE (pulmonary thromboembolism) ([facility]) Pelvic mass Pseudoaneurysm of AV hemodialysis fistula ([facility]) Wound of right side of back from friction/rubbing of jacket, goes to wound care center in [place] PAST SURGICAL HISTORY Procedure Laterality Date ARTERIOVENOUS FISTULA Left 08/29/2010 CAPSULE ENDOSCOPY 07/01/2023 CARDIOVERSION-ELECTIVE N/A 12/03/2018 200 joules synchronized - successful COLONOSCOPY 07/01/2023 EGD 06/27/2023 HERNIA REPAIR HX PAST SURGICAL HISTORY OF 08/29/2010 dialysis fistula left arm PAST SURGICAL HISTORY OF Right 03/2019 Right leg femoral vein to superficial femoral artery loop graft mid thigh REPAIR CLEFT LIP RMVL LEANN CVC W/O SUBQ PORT/TOBACCO PREVENTION HEALTH EDUCATOR 01/17/2013 SHX CARDIAC RADIOFREQUENCY ABLATION 08/21/2021 s/p Maze procedure SHX MITRAL VALVE REPLACEMENT 08/21/2021 FAMILY HISTORY Adopted: Yes Problem Relation Age of Onset None Mother None Father Aneurysm No Family History Social History Tobacco Use Smoking status: Never Smokeless tobacco: Never Vaping Use Vaping status: Never Used Substance Use Topics Alcohol use: No Drug use: No melatonin 10 mg cap, Take 1 capsule by mouth daily at bedtime., Disp: , Rfl: Cinacalcet HCl (SENSIPAR) 60 mg tablet, Take 120 mg by mouth once daily., Disp: , Rfl: warfarin (COUMADIN) 5 mg tablet, Take 1 tablet by mouth once daily., Disp: 60 tablet, Rfl: 0 polyethylene glycol 3350 (MIRALAX) 17 gram packet, Take 1 Packet by mouth once daily. Dissolve dose in 4 - 8 ounces of liquid and take as directed., Disp: 60 Each, Rfl: 0 oxyCODONE IR (ROXICODONE) 10 mg tab, Take 10 mg by mouth every 8 hours as needed for pain., Disp: , Rfl: , 10/11/2024 VELPHORO 500 mg chew, Crush or chew and swallow 2 tablets 3 times a day with meals, Disp: , Rfl: B Complex-Vitamin C-Folic Acid (JOHNSON-BRENDA) 0.8 mg tab, Take 1 tablet by mouth once daily., Disp: , Rfl: , 10/11/2024 midodrine (PROAMATINE) 10 mg tablet, Take 2 tablets by mouth every 8 hours., Disp: 180 tablet, Rfl: 11 MEDICATION, NON-DATABASE, Apply 1 Each to affected area once daily. Self adhesive 5x9 inch abd pad/dressing, Disp: 30 Each, Rfl: 2, Unknown WALKER ROLLATOR SEAT WITH 6 WHEELS - RED, ., Disp: 1 Each, Rfl: 1, Unknown Blood Pressure Test Kit-Large (QUICK RESPONSE BP MONITOR), 1 Each once daily., Disp: 1 Each, Rfl: 0, Unknown Current Facility-Administered Medications Medication Dose Route Frequency NaCl 0.9% iv flush bag 20 mL INTRAVENOUS PRN dextrose 15 gram/32 mL 15 g (TRUEPLUS) 15 g ORAL PRN Or glucagon 1 mg injection 1 mg INTRAMUSCULAR PRN Or dextrose 10% iv bolus 12.5 g INTRAVENOUS PRN midodrine 20 mg tab(s) (PROAMATINE) 20 mg ORAL q 8 H polyethylene glycol 3350 17 g packet 17 g ORAL DAILY pantoprazole DR 40 mg tab(s) (PROTONIX) 40 mg ORAL DAILY acetaminophen 650 mg tab(s) (TYLENOL) 650 mg ORAL q 6 H PRN sevelamer carbonate 2,400 mg tab(s) (RENVELA) 2,400 mg ORAL TID w MEALS melatonin 9 mg tab(s) 9 mg ORAL DAILY (8 PM) calcitriol 1.5 mcg cap(s) (ROCALTROL) 1.5 mcg ORAL MO-WE-FR midodrine 20 mg tab(s) (PROAMATINE) 20 mg ORAL PRN DIALYSIS Darbepoetin Osito In Polysorbat 60 mcg injection (ARANESP) 60 mcg SUBCUTANEOUS q MON B Complex-Vitamin C-Folic Acid 1 tablet tab(s) (JOHNSON-VIT) 1 tablet ORAL DAILY warfarin 5 mg tab(s) (COUMADIN) 5 mg ORAL DAILY - WARFARIN cinacalcet 60 mg tab(s) (SENSIPAR) 60 mg ORAL DAILY oxyCODONE IR 10 mg tab(s) (ROXICODONE) 10 mg ORAL q 4 H PRN HYDROmorphone 0.5 mg injection (DILAUDID) 0.5 mg INTRAVENOUS DAILY PRN heparin iv infusion 25,000 units in NaCl 0.45% 250 mL STANDARD NOMOGRAM 0-3,000 Units/hr INTRAVENOUS CONTINUOUS And heparin RATE CHANGE bolus 1,000-10,000 Units for subtherapeutic PTTAC results 1,000-10,000 Units INTRAVENOUS PRN iv contrast (radiology procedure) INTRAVENOUS DIRECTED PRN Medication and Non-Pharmacologic VTE Prophylaxis/Anticoagulants Anticoagulant AND Antiplatelet Medications (From admission, onward) Start Dose Route Frequency Last Action Ordered Stop 10/18/24 1230 heparin iv infusion 25,000 units in NaCl 0.45% 250 mL STANDARD NOMOGRAM (Heparin Infusion + Bolus for Subtherapeutic PTTAC) 0-30 mL/hr Placed in And Linked Group 0-3,000 Units/hr INTRAVENOUS CONTINUOUS Rate/Dose Calculated - Heparin, 10/19 0348 10/18/24 1213 -- 10/14/24 1014 warfarin 5 mg tab(s) (COUMADIN) 5 mg ORAL DAILY - WARFARIN Given, 10/18 1723 10/14/24 1015 -- 10/12/24 1111 activity - mobilize patient (nj,oh) VTE Prophylaxis: VTE prophylaxis appropriate ALLERGIES Allergen Reactions Gabapentin Unknown, Other: See Comments Trazodone Other: See Comments Fidgety Objective PHYSICAL EXAM Physical Exam Performed CONSTITUTIONAL: Well developed NEUROLOGIC/PSYCHIATRIC: Oriented to time, place AND person HEENT: EOM's intact LUNGS: Normal respiratory effort HEART: Regular rate AND rhythm ABDOMEN: Soft, with observed known ulcerated lesions INTEGUMENTARY: Wound - Yes. Pictured in chart SURGICAL SITES: None MUSCULOSKELETAL: No deformities Pulses/Signals: Bilaterally palpable DP, multiphasic PT (non palpable likely due to swelling/edema). 1+ R groin, 2+ L groin. Palpable radial, ulnar, and brachial pulses bilaterally (1+ brachial and 1+ radial on Left). DATA: Laboratory: Recent Labs 10/19/24 0128 10/18/24 0746 10/17/24 0840 WBC 6.64 6.29 5.16 HB 8.5* 8.4* 8.5* HCT 29.3* 28.9* 28.4* PLT 255 266 241 Recent Labs 10/19/24 0128 10/18/24 0746 10/17/24 0840 NA 135* 135* 137 K 5.4* 6.0* 5.3* BUN 23 42* 35* CREAT 6.62* 10.08* 8.35* GLUC 90 74 77 Recent Labs 10/19/24 0128 10/18/24 0746 10/17/24 0730 APTT 46.4* 78.3* 70.3* INR -- 2.0* 1.7* Radiology: CT abdomen pelvis, demonstrating well placed tunneled line but globally stenotic vessels. I have personally reviewed the following images/data: CT Scan Impression: Elia Weston is a 44 year old Black male Plan: - Agree with IR consult - Agree with obtaining CTA chest, venogram for further evaluation To be discussed with senior, with staff SIGNATURE: Maxi Arias MD PATIENT NAME: Elia Weston DATE: October 19, 2024 TIME: 1:14 PM Senior Resident Attestation: I personally saw and examined the patient. I reviewed the note above and I agree with the assessment and plan unless otherwise noted below. Mr. Weston is a 44 year old male who presented 10/12/2024 with past medical history significant for A-fib status post maze and mechanical valve repair on Coumadin, end-stage renal disease Friday via left TDC, hyperparathyroidism, hypertension and vasculopathy with SVC syndrome, hyperlipidemia, obesity obstructive sleep apnea who presented for pain from his chronic wounds on his chest and abdomen. Of note he previously had a right femorofemoral loop graft in 2018 and several fistulogram's to treat outflow stenosis, subsequently developed an ulcer over his groin in March 2024 and had this revised and noted to be occluded. He had a TDC cath exchange in May 2024 on the left side. Vascular surgery consulted regarding dialysis access. IR consulted and waiting for CT venogram of chest for evaluation for recannulization of SVC. Patient recently had a skin biopsy of lesions, pathology pending. CT venogram of the chest pending, per IR. Palpable pulses distally with significant edema and chronic venous skin changes. Regarding his dialysis access -Failed bilateral upper extremities and right lower extremity access, currently with Left TDC in place -Would recommend continued dialysis via Left TDC given his multiple failed attempts at access and lack of anatomic options. 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 I have discussed the case and management of the patient's care. STAFF PHYSICIAN: Yolanda Wei MD, JU DATE OF SERVICE: October 19, 2024 TIME OF SERVICE: 3:32 PM CONSULT PROG Observed: 10/19/2024 12:32 PM Status: COMPLETED Source: [facility] HNO ID: [id number] Author: ROSA MOE APRN.CNP Service: Interventional Radiology Author Type: Nurse Practitioner Type: Consult Progress Note Filed: 10/19/2024 13:43 Note Text: INTERVENTIONAL RADIOLOGY SERVICE PROGRESS NOTE SERVICE DATE: October 19, 2024 SERVICE TIME: 12:30 PM Subjective HPI: 10/15/24 44 year old male with a PMH significant for AFib, chronic anemia, mechanical mitral valve replacement (on Coumadin), ESRD on iHD MWF via left femoral vein TDC (placed by [facility] IR ), HLD, HTN, obesity, secondary hyperparathyroidism, 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 He presented ED with complaints of worsening chronic pain related to wounds. Chest, abdomen, and back wounds have been present for more than 3 years. While admitted, it was recommended that RIJ Lorena catheter be removed since it was not being used. Patient reports RIJ Lorena catheter placed at 06/15/2024 as the first part of a [address] venous stents. The goal was to improve circulation to aid in healing of his chronic wounds. Unfortunately, he was not contacted to arrange the 2nd part of the procedure at d/t his vascular physician leaving . Patient denies history of associated symptoms including SOB, difficulty breathing, difficulty swallowing, dizziness, lightheadedness, HAs, neck/arm/facial swelling, visual changes, and vocal hoarseness. He endorses severe pain associated with chest, back, and abdominal wounds. IR team is consulted SVC syndrome treatment. Plan: - CT venogram chest/abdomen/pelvis with IVCON. Place order for CTA chest, abdomen, and pelvis with IVCON. In comment section, state CT venogram. - IR plan TBD pending CT venogram results. SUBJECTIVE: Patient seen at bedside. Denies symptoms of SVC syndrome. Discussed CTA A/P only was completed on 10/17 even though CTA chest was ordered. Once CTA chest completed, IR will provide further recommendations if intervention and TDC placement in the chest is feasible. Patient reports he previously had a LE graft placed years ago by Dr. Josue in Vascular Surgery. He is requesting to speak with Dr. Josue about his current dialysis catheter and if any surgical intervention can be offered. Objective OBJECTIVE: BP (!) 88/46 Pulse 86 Temp 36.6 ?C (97.9 ?F) (Oral) Resp 18 Ht 177 cm (5' 9.69) Wt 113 kg (249 lb 1.9 oz) SpO2 98% BMI 36.07 kg/m? Physical Exam: GENERAL: Alert, no distress LUNGS: Good diaphragmatic excursion EXT: no edema NEURO: AANDOx3 Recent Labs 10/19/24 0128 10/18/24 0746 10/17/24 0840 10/17/24 0730 WBC 6.64 6.29 5.16 -- HB 8.5* 8.4* 8.5* -- HCT 29.3* 28.9* 28.4* -- PLT 255 266 241 -- INR -- 2.0* -- 1.7* APTT 46.4* 78.3* -- 70.3* NA 135* 135* 137 -- K 5.4* 6.0* 5.3* -- CHLOR 94* 95* 95* -- CO2 -- BUN 23 42* 35* -- CREAT 6.62* 10.08* 8.35* -- GLUC 90 74 77 -- CA 8.6 8.0* 8.5 -- CMP: Glucose 90 10/19/2024 BUN 23 10/19/2024 Creatinine 6.62 10/19/2024 Sodium 135 10/19/2024 Potassium 5.4 10/19/2024 Chloride 94 10/19/2024 CO2 Content, Venous 25 10/19/2024 Protein, Total 8.5 10/12/2024 Albumin 3.9 10/12/2024 Calcium 8.6 10/19/2024 Alkaline Phosphatase 179 10/12/2024 Bilirubin, Total 0.3 10/12/2024 AST 16 10/12/2024 ALT 13 10/12/2024 Date 10/18/24 0700 - 10/19/24 0659 10/19/24 0700 - 10/20/24 0659 Shift 6132-2159 3692-5911 6542-5042 24 Hour Total 3023-2142 4525-9070 8644-5270 24 Hour Total INTAKE PO 702 702 480 480 PO 702 702 480 480 Shift Total 702 702 480 480 OUTPUT Urine Urine Not Saved. 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 IR team was initially consulted for SVC syndrome.Recommendations were made for CT venogram chest/abdomen/pelvis. - Will need CT chest venogram to assess central occlusions - Once CT chest venogram completed, IR will review and provide recommendations for possible intervention with stenting and TDC placement in the chest. - Patient requesting to be evaluated inpatient by Dr. Josue in Vascular Surgery to discuss current dialysis catheter and if there are any surgical interventions that can be provided. - Do not remove RIJ Lorena. - Discussed with IR staff, Dr. Hogue and primary team Thank you for the opportunity to share in the medical care of this patient. Please page [phone] or call [phone] if we can be of immediate assistance. For concerns between 4:00PM-7:00AM contact the on-call IR fellow / resident at pager [phone] SIGNATURE: Rosa Moe APRN.CNP PATIENT NAME: Elia Weston DATE: October 19, 2024 TIME: 12:45 PM THERAPY NT Observed: 10/19/2024 12:13 PM Status: COMPLETED Source: [facility] ID: [id number] Author: HANNAH SAEED OT/L Service: Occupational Therapy Author Type: Occupational Therapist Type: Therapy (PT/OT/Speech/Resp) Filed: 10/19/2024 12:17 Note Text: Occupational Therapy Treatment Summary SERVICE DATE: 10/19/2024 SERVICE TIME: 1020 to 1146 ROOM: H080-10 OT 6 Clicks Score: 18 DISCHARGE RECOMMENDATIONS Home OT Recommended Discharge Disposition Due to: ADL impairment, Functional status decline Anticipated Discharge Needs: Undetermined Recommended Discharge Equipment: To Be Determined ASSESSMENT Response to Therapy Interventions: Good Participation in Activities, Low Activity Tolerance, Multiple Ongoing Medical Issues, Coping Deficits Pt seated upright in chair upon arrival, agreeable to skilled OT session. Feeding setup and grooming setup. Discussion on discharge at start of session, pt reporting feeling discouraged d/t coming to the hospital and not getting any help regarding therapy. Pt reporting wanting to go to SNF to get more therapy before going home. Pt further stating, They would help me more if I were dying. Pt denying SI and HI. Providing pt with HEART, pt tearful reporting, I cannot go outside with my kids. I cannot be a good dad. HEART continued to be provided and coping strategies. Pt reporting activity tolerance and weakness has been occurring for the past year and has been a barrier in daily functional activity. Pt reporting x2 falls, within the last year. Providing pt with education on energy conservation techniques. Pt perseverating on deficits of weakness and fatigue, MIN VCs to redirect. Providing pt with education on coping strategies including distraction and creating goals for while in house. Pt completing x5 STS trials, CGA progressing to SBA with WW, chair <> upright stance. Time measured to assess pt's standing tolerance and progression, trial times located below. Standing trials: Trial 1- 1:29 (weight shifting) Trial 2- 1:17 (weight shifting) Trial 3- 1:10 (weight shifting and dynamic standing) Trial 4- 1:20 (static standing) Trial 5- 1:31 (static standing) PRECAUTIONS Fall Risk CURRENT HOSPITAL COURSE presenting with uncontrolled pain from chest and abdominal wounds. 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 IND ADLs although he reports that bathing and dressing has been painful and time-consuming. Has been sleeping in recliner 2/2 to pain. Endorses one fall ~1 week ago from LOB. Drives. Baseline Cognition: Oriented to self, Oriented to place, Oriented to time, Oriented to situation SUBJECTIVE The system is failing me. COGNITION Responsiveness: Awake Follows Commands: 3-step Commands Psychosocial Factors Impacting Care: Anxiety/Stress Cog 6 Start of Session Total Points (Max Score = 24): 24 (10/19/24) Cog 6 End of Session Total Points (Max Score = 24): 24 (10/19/24) 4AT Score: 0 (10/19/24) Delirium Positive/Negative: Negative (10/19/24) THERAPY DIAGNOSIS Reduced mobility-other, Decreased activities of daily living (ADL), Muscle Weakness (generalized), General symptoms and signs-other TREATMENT INTERVENTIONS Therapeutic Activity (23577), Self Detention Management (36247) Timed Code Treatment (minutes): 86 Skilled Treatment Time (minutes): 86 TRAINING AND EDUCATION PROVIDED Activity Adaptation/Compensatory Strategies, Benefits of In-Hospital Mobility, Coping Skills/Resiliency, Discharge Planning, Executive Functions/Problem Solving, Functional Mobility Involving ADLs, Grooming Tasks, Insight into Deficits, Life Roles/Routines/Habits, Lower Extremity Dressing, Meaningful Hobby/Leisure Participation, Patient Exercise/Therapy Program Support Needs, Role of Occupational Therapy, Safety/Judgment, Self-Efficacy, Self-Expression/Advocacy, Standing Balance to Improve [place] with ADLs/Self-Care, Stress Management, Treatment Protocol, Visual Scanning/Attention Activities, Transfer - Sit to Stand, Expected Functional Level, Fine Motor Coordination, Emotional Regulation, Adaptive Equipment/DME, Assistive Device Use THERAPEUTIC SKILLS USED Activity Dosing, Cues for Sequencing/Proper Technique for Activity, Cuing Verbal, Cuing Tactile, Facilitation of Joint Range of Motion, Management of Critical Lines, Tubes and/or Drains, Movement Facilitation, Physical Assist, Task Analysis Learning, Therapeutic Use of Self, Therapeutic Touch/Massage, Teach-Back for Education, Bilateral UE Integration, Muscle Activation Facilitation FUNCTIONAL STATUS Activities of Daily Living Assist Level Additional Information Feeding Set Up Grooming Set Up Bathing Upper Body Set Up Bathing Lower Body Moderate Assistance Dressing Upper Body Set Up Dressing Lower Body Moderate Assistance Toileting Moderate Assistance Mobility Assist Level Additional Information Bed Mobility Supine To Sit: (NT) Sit to Stand Contact Guard Assistance, Stand By Assistance Stand to Sit Contact Guard Assistance, Stand By Assistance Bed to Chair Toilet/Commode Shower Functional Mobility Contact Guard Assistance Functional Mobility Device: IV Pole GOALS Patient will demonstrate progress to optimize self-care activities, cognitive and/or coping to maximize function upon discharge. Progress Toward Goals: Progressing as expected Rehab Potential: Good PLAN OT Frequency: 3 Times Per Week Treatment Interventions: Education, Self Care/Home Management, Energy Conservation Training, Strengthening, Functional Mobility Training, Pain Management, Coping Strategy Education Plan for Next Visit: Bathing Training, Dressing Training, Energy Conservation SIGNATURE: Hannah Saeed OT/L PATIENT NAME: Elia Weston DATE: October 19, 2024 TIME: 12:13 PM PROGRESS Observed: 10/19/2024 11:36 AM Status: COMPLETED Source: [facility] ID: [id number] Author: XANDER MOJICA MD Service: Hospital Medicine Author Type: Physician Type: Progress Notes Filed: 10/19/2024 11:56 Note Text: HOSPITAL MEDICINE PROGRESS NOTE SERVICE DATE: 10/19/2024 SERVICE TIME: 11:36 AM Hospital Medicine/Primary Attending: Xander Mojica R* dr. jacki briggs md, is taking back over care on 10/20/2024 from 8 am DAY AND NIGHT/WEEKEND COVERAGE: Between 8AM to 5PM, page [phone] After hours 5PM to 8AM, page [phone] if patient on G80/81 H80/81, page [phone] if on other floors. Subjective INTERVAL HPI: 10/19: taken over from dr briggs, for today no acute events overnight no new issues hemodynamically stable afebrile seen along with rn (and d/w the cm) =not aware (vs says not aware) of the IR plans for possible dilatation (and potential regaining of ue access down the line-says not aware). =no IR input in the last 3 days-> ir inpatient not responding-> called IR staff and d/w IR-> apparently the chest ct with follow through venous gram was missed last time despite doing the abdomen in pelvis( could have avoided a 2nd scan-per the the IR input today-talked to dr emely moreno md)-> requested ct with contrast with venous phase again.. =wants vs input re their plans for repairing previous acess concerns-> VS consult asked for and called vs team hx reviewed: admitted on 10/12 with worsening chronic chest wound, with pain, and rehab in view of ftt, received ihd via left tdc fem access per the neph team, ID seen : wound are not infected-> advised obs off abx; derm did punch biopsy and advised wound care with xeroform/Vaseline gauze+ abd while awaiting the biopsy results; seen by pmnr-> recomened snf for rehab 10/18: Seen during dialysis. Feeling well with no complaints. Pain controlled. Current Facility-Administered Medications Medication Dose Route Frequency NaCl 0.9% iv flush bag 20 mL INTRAVENOUS PRN dextrose 15 gram/32 mL 15 g (TRUEPLUS) 15 g ORAL PRN Or glucagon 1 mg injection 1 mg INTRAMUSCULAR PRN Or dextrose 10% iv bolus 12.5 g INTRAVENOUS PRN midodrine 20 mg tab(s) (PROAMATINE) 20 mg ORAL q 8 H polyethylene glycol 3350 17 g packet 17 g ORAL DAILY pantoprazole [address] 40 mg tab(s) (PROTONIX) 40 mg ORAL DAILY acetaminophen 650 mg tab(s) (TYLENOL) 650 mg ORAL q 6 H PRN sevelamer carbonate 2,400 mg tab(s) (RENVELA) 2,400 mg ORAL TID w MEALS melatonin 9 mg tab(s) 9 mg ORAL DAILY (8 PM) calcitriol 1.5 mcg cap(s) (ROCALTROL) 1.5 mcg ORAL -WE- midodrine 20 mg tab(s) (PROAMATINE) 20 mg ORAL PRN DIALYSIS Darbepoetin Osito In Polysorbat 60 mcg injection (ARANESP) 60 mcg SUBCUTANEOUS q MON B Complex-Vitamin C-Folic Acid 1 tablet tab(s) (JOHNSON-VIT) 1 tablet ORAL DAILY warfarin 5 mg tab(s) (COUMADIN) 5 mg ORAL DAILY - WARFARIN cinacalcet 60 mg tab(s) (SENSIPAR) 60 mg ORAL DAILY oxyCODONE IR 10 mg tab(s) (ROXICODONE) 10 mg ORAL q 4 H PRN HYDROmorphone 0.5 mg injection (DILAUDID) 0.5 mg INTRAVENOUS DAILY PRN heparin iv infusion 25,000 units in NaCl 0.45% 250 mL STANDARD NOMOGRAM 0-3,000 Units/hr INTRAVENOUS CONTINUOUS And heparin RATE CHANGE bolus 1,000-10,000 Units for subtherapeutic PTTAC results 1,000-10,000 Units INTRAVENOUS PRN iv contrast (radiology procedure) INTRAVENOUS DIRECTED PRN Objective PHYSICAL EXAM: BP 115/64 Pulse 78 Temp (Src) 99 (Axillary) Resp 18 Ht 5' 9.685 (1.77m) Wt 249 lb 1.9 oz (113.0kg) SpO2 100% BMI 36.07 kg/(m2). O2 Therapy: Continuous Positive Airway Pressure, Liters: 2 General: Alert and oriented, NAD HEENT: Mucous membranes moist, oropharynx unremarkable Cardiac: RRR without murmurs, rubs, or gallops. Lungs: Clear to auscultation bilaterally, no respiratory distress Abdomen: Soft, nontender, nondistended. Ext: Warm, well perfused, no edema Skin: Ulcerations on chest and abdomen covered with dressing. Lines, Drains, and Airways Line Duration Central Line Single Lumen Tunneled Right Neck -- days Dialysis / Apheresis Double Lumen 10/05/24 External Facility Tunneled Left Femoral 14 days Peripheral 10/12/24 0530 [facility] Short Right Forearm 20 Gauge 7 days Reviewed lines and needs to be continued: REASONS: Intravenous fluids DATA: Diagnostic tests reviewed for today's visit: CBC, Coags, BMP, Mg, Phos Recent Labs 10/19/24 0128 10/18/24 0746 10/17/24 0840 10/17/24 0730 WBC 6.64 6.29 5.16 -- HB 8.5* 8.4* 8.5* -- HCT 29.3* 28.9* 28.4* -- PLT 255 266 241 -- INR -- 2.0* -- 1.7* APTT 46.4* 78.3* -- 70.3* NA 135* 135* 137 -- K 5.4* 6.0* 5.3* -- CHLOR 94* 95* 95* -- CO2 25 23 22 -- BUN 23 42* 35* -- CREAT 6.62* 10.08* 8.35* -- GLUC 90 74 77 -- CA 8.6 8.0* 8.5 -- 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 Personal history of DVT (deep vein thrombosis) PAF (paroxysmal atrial fibrillation) ([facility]) History of stroke Hypotension, chronic Anemia due to stage 5 chronic kidney disease, not on chronic dialysis ([facility]) ([facility]) Status post Maze operation for atrial fibrillation Skin ulcer, limited to breakdown of skin ([facility]) SVC syndrome Generalized weakness Impaired functional mobility, balance, gait, and endurance HOSPITAL COURSE: Justine Weston is a 44 year old male with h/o atrial fibrillation and severe mitral stenosis s/p mitral valve replacement with On-x valve, Maze procedure and RADHA clip on 08/21/2021, currently on Coumadin, ESRD on IHD via left femoral vein TDC on [facility] ), 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 He also expressed a poor pain control on oxycodone. Patient follows with pain management as outpatient for pain associated with chest and abdominal wounds. He currently takes oxycodone 10 mg every 8 hours. Denied fevers or foul-smelling discharge from both wounds. Receiving wound care at home. Chest and abdomen ulcerations - No overt evidence of infection, observing off abx - Evaluated by dermatology and s/p biopsy, continuing wound care in the meantime. Follow biopsy result - Pain control with prn oxycodone, dilaudid for breakthrough, appreciate pain med input. Atrial fibrillation and severe mitral stenosis s/p mechanical mitral valve replacement with On-x valve, Maze procedure and RADHA clip on 08/21/2021. - Cont bridging with heparin gtt, coumadin 5 mg daily -- INR goal 2.5 - 3.5 ESRD on hemodialysis via left femoral vein TDC on [facility] SVC syndrome-multiple right and left IJ catheters placed in past resulting in stenosis of central veins. - Has R-IJ lorena with possible plan for intervention -- IR consulted and CT venogram C/A/P as recommended is (CT abdomen completed yesterday evening but not chest -- plan to return late today or tomorrow AM) Anemia of ESRD -Hb at baseline(8.0-8.5) GERD -continue pantoprazole Obesity YEIMY on CPAP Secondary hyperparathyroidism -continue calcitriol, Cinacalcet, sevelamer Exogenous Class 2 Obesity Medication and Non-Pharmacologic VTE Prophylaxis/Anticoagulants Anticoagulant AND Antiplatelet Medications (From admission, onward) Start Dose Route Frequency Last Action Ordered Stop 10/18/24 1230 heparin iv infusion 25,000 units in NaCl 0.45% 250 mL STANDARD NOMOGRAM (Heparin Infusion + Bolus for Subtherapeutic PTTAC) 0-30 mL/hr Placed in And Linked Group 0-3,000 Units/hr INTRAVENOUS CONTINUOUS Rate/Dose Calculated - Heparin, 10/19 0348 10/18/24 1213 -- 10/14/24 1014 warfarin 5 mg tab(s) (COUMADIN) 5 mg ORAL DAILY - WARFARIN Given, 10/18 1723 10/14/24 1015 -- 10/12/24 1111 activity - mobilize patient (nj,ms) VTE Prophylaxis: VTE prophylaxis appropriate Disposition: SNF, [facility] assistance Plan of care discussed with Provider, RN, Patient disclaimer: some elements of above-hpi,ros, p/e and a/p--were copied from previous version dated: 10/18-dr eliz md; however, documentation has been reviewed and edited as necessary and to support clinical decision making for today's visit and to reflect my own independent evaluation of this patient AND an attempt was made to delete parts that were not relevant; And also note that portions of the medical record may have been produced using electronic electronics tester and may contain errors with respect to translation of words which may not have been identified prior to finalization of the chart. I asked patient's permission to conduct the following physical examination and she consented. Patient's nurse present in the room during today's physical examination The time of this note does not reflect the time I saw the patient but the time that this note was written. SIGNATURE: Xander Mojica MD PATIENT NAME: Elia Weston DATE: October 19, 2024 TIME: 11:37 AM THERAPY NT Observed: 10/19/2024 10:41 AM Status: COMPLETED Source: [facility] HNO ID: [id number] Author: MARÍA ESPARZA PT DPT Service: Physical Therapy Author Type: Bicycle Subassembler Type: Therapy (PT/OT/Speech/Resp) Filed: 10/20/2024 07:36 Note Text: Attestation signed by María Esparza PT DPRolan at 10/20/2024 7:36 AM I reviewed and agree with the documentation corresponding to this therapy visit. SIGNATURE: María Esparza PT DPT DATE: October 20, 2024 TIME: 7:36 AM Physical Therapy Treatment Summary SERVICE DATE: 10/19/2024 SERVICE TIME: 828 to 957 ROOM: [place] [id number] PT 6 Clicks Score: 17 DISCHARGE RECOMMENDATIONS Home PT Recommended Discharge Disposition Comments: depending on stair climbing prior to discharge, patient requesting short stay at rehab and wound care Recommended Discharge Disposition Due to: (-) Recommended Discharge Equipment: Rollator ASSESSMENT Response to Therapy Interventions: Good Participation in Activities, Pain, Requires Additional Time to Complete Activities RN approved, patient wants to go to rehab to get stronger due to BLE weak. Discussed and performed strategies to increase strength, trunk strength, balance, pacing ,endurance and energy conservation.Focused on seated, standing, balance exercises, how to perform, frequency and how to increase in difficulty. Patient ambulated with iv pole with increase lateral sway, decreased balance and pain. Patient ambulated 2nd trial with RW with improved gait and decrease lateral sway with cues. Discussed ambulating with RW 4x day for 50', then increase daily by 10' to increase. Patient goals to ambulate without AD. PRECAUTIONS Fall Risk CURRENT HOSPITAL COURSE presenting with uncontrolled pain from chest and abdominal wounds. 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 IND ADLs although he reports that bathing and dressing has been painful and time-consuming. Has been sleeping in recliner 2/2 to pain. Endorses one fall ~1 week ago from LOB. Drives. SUBJECTIVE Patient frustrated about current situation THERAPY DIAGNOSIS Reduced mobility-other, Muscle Weakness (generalized), Abnormalities of gait and mobility-other, Unsteadiness on feet TREATMENT INTERVENTIONS Gait Training (54686), Therapeutic Activity (12633), Therapeutic Exercise (00219) Timed Code Treatment (minutes): 89 Skilled Treatment Time (minutes): 89 TRAINING AND EDUCATION PROVIDED Bed Mobility, Assistive Device Use, Benefits of In-Hospital Mobility, Exercise Program, Gait Pattern, Reduction of Deviations, Patient Exercise/Therapy Program Support Needs, Standing Balance THERAPEUTIC SKILLS USED Activity Dosing, Assessment of Tolerance Including Vitals Response to Activity, Cues for Sequencing/Proper Technique for Activity, Cuing Tactile, Cuing Verbal, Physical Assist, Management of Critical Lines, Tubes and/or Drains, Postural Alignment Correction FUNCTIONAL STATUS Bed Mobility Rolling: Stand By Assistance Supine To Sit: Contact Guard Assistance, Additional Information for trunk Scooting: Stand By Assistance Transfers Sit To Stand: Contact Guard Assistance Stand To Sit: Contact Guard Assistance Bed to Chair Stand By Assistance Bed To Chair Transfer Type: Stepping Bed To Chair Transfer Equipment: (iv pole) Gait Contact Guard Assistance, Additional Information gait improved with use of RW with cues for proper technique, discussed increase trials vs distance due to pain and both legs weakness Gait Device: IV Pole, Wheeled Walker General Deviations/Observations: Antalgic gait, Magali decreased, Lateral sway increased, Step length decreased, Wide base of support Gait Distance (feet): 35' with iv pole, 50' with RW Stairs GOALS Patient will demonstrate progress to optimize functional mobility, maximize activity tolerance and endurance to maximize function upon discharge. Rehab Potential: Good Progress Toward Goals: Progressing as expected PLAN PT Frequency: 4 Times Per Week (2) Treatment Interventions: Education, Energy Conservation Training, Functional Mobility Training, Strengthening, Balance Training, Neuromuscular Re-education Plan for Next Visit: Standing Balance, Standing Tolerance, Sit to Stand Transfers, Gait Training SIGNATURE: Kit Han PTA PATIENT NAME: Elia Weston DATE: October 19, 2024 TIME: 10:41 AM NURSING PROG Observed: 10/19/2024 9:36 AM Status: COMPLETED Source: [facility] HNO ID: [id number] Author: RAFAT CARUSO RN Service: Nursing Author Type: Registered Nurse Type: Nursing Progress Note Filed: 10/19/2024 09:44 Note Text: This RN spoke with patient's primary nurse to discuss SVC CT study. This RN made floor RN aware that patient will need an additional IV in the opposite forearm, 20 gauge or greater in order to complete study as contrast is injected into both arms simultaneously. Floor RN states that she will obtain an order to stop heparin for CT from the provider so that we can use existing documented 20 gauge in the right forearm. Floor RN states that currently patient is a difficult stick and will likely require an ultrasound IV. Floor RN states that patient is currently refusing IV access. This RN requested floor RN keeps us updated as necessary. BAS METAB 1999 PNL SERPL Collected: 1:28 AM Status: F Source: [facility] Order Comment: Specimen Type : BLOOD SPECIMEN Ordering Facility: [facility] Address: [address] [place] [address] TYPE CODE TESTS RESULT OUT OF RANGE REFERENCE UNITS LAB 2345-7(LOINC) Glucose SerPl-mCnc 90 74-99 mg/dL Result Comment: The [place] Diabetes Association (ADA) provides guidance for cutoff values for fasting glucose and random glucose. The ADA defines fasting as no caloric intake for at least 8 hours. Fasting plasma glucose results between 100 to 125 mg/dL indicate increased risk for diabetes (prediabetes). Fasting plasma glucose results greater than or equal to 126 mg/dL meet the criteria for diagnosis of diabetes. In the absence of unequivocal hyperglycemia, results should be confirmed by repeat testing. In a patient with classic symptoms of hyperglycemia or hyperglycemic crisis, random plasma glucose results greater than or equal to 200 mg/dL meet the criteria for diagnosis of diabetes. Reference: Standards of Medical Care in Diabetes 2016, [place] Diabetes Association. Diabetes Care. 2016.39(Suppl 1). LAB 3094-0(LOINC) BUN SerPl-mCnc 23 9-24 mg/ dL LAB 2160-0(LOINC) Creat SerPl-mCnc 6.62 High 0.73-1.22 mg/dL LAB 2951-2(LOINC) Sodium SerPl-sCnc 135 Low 136-144 mmol/L LAB 2823-3(LOINC) Potassium SerPl-sCnc 5.4 High 3.7-5.1 mmol/L LAB 2075-0(LOINC) Chloride SerPl-sCnc 94 Low 98-107 mmol/L LAB 2028-9(LOINC) CO2 SerPl-sCnc 25 22-30 mmo l/L LAB 58941-6(LOINC) Anion Gap SerPl-sCnc 16 High 8-15 mmol/L LAB 91009-9(LOINC) Calcium SerPl-mCnc 8.6 8.5-10.2 mg/dL LAB 54223-3(LOINC) Creatinine + eGFR Pnl SerPlBld 10 Low >=60 mL/min/1 .73m??? Result Comment: Estimated Gl omerular Filtration Rate (eGFR) is calculated using the 202 CKD-EPI creatinine equation. This equation utilizes serum creatinine, sex, and age as parameters. The creatinine assay has traceable calibration to isotope dilution-mass spectrometry. Refer to KDIGO guidelines for clinical interpretation. In patients with unstable renal function, e.g. those with acute kidney injury, the eGFR may not accurately reflect actual GFR. Performed By: #### 47134-6 # ### [facility] CLIA [id number] [address] [place] [address] [place] PTT, ANTICOAGULANT THERAPY Collected: 0 10/19/2024 1:28 AM Status: F Source: [facility] Order Comment: Specimen Type : BLOOD SPECIMEN Ordering Facility: [facility] Address: [address] [place] [address] TYPE CODE TESTS RESULT OUT OF RANGE REFERENCE UNITS LAB 79657-3(LOINC) aPTT PPP 46.4 High 23.0-32.4 sec Performed By: #### PTTAC, 34 528-0 #### [facility] CLIA [id number] [address] [place] [address] [place] PT PNL PPP Collected: 10/19/2024 1:28 AM Status: F Source: [facility] Comment: Specimen Type : BLOOD SPECIMEN Ordering Facility: [facility] Address: [address] [place] [address] TYPE CODE TESTS RESULT OUT OF RANGE REFERENCE UNITS LAB 5902-2(LOINC) Prothrombin time 20.8 High 9.7-13.0 sec LAB 6301-6(LOINC) INR PPP 2.0 High 0.9-1.3 Result Comment: Vitamin K An tagonist (VKA) Therapeutic Range: INR 2 to 3 (Target INR of 2.5) Note: For patients treated with VKA drugs, such as warfarin, the [place] College of Chest Physicians 2012 Guideline recommends a therapeutic INR range of 2 to 3 (target INR of 2.5). This recommendation includes high-risk patients with antiphospholipid syndrome with previous arterial or venous thromboembolism, current-generation mechanical or bioprosthetic aortic heart valve replacement. Note: Patients with mechanical aortic valve replacement and additional risk factors for thromboembolic events (atrial fibrillation, previous thromboembolism, LV dysfunction, hypercoagulable conditions) or an older generation mechanical AVR (i.e., ball in-Cage) or any mechanical MVR should have a INR therapeutic range of 2.5 to 3.5 (target INR of 3). Ranjit YOUSSEF, et al. Chest 2012, 141:7S-47S Kevin RUSHING et al. [facility] 2017, 70: 252-289 Performed By: #### PTTAC, 34 528-0 #### [facility] CLIA [id number] [address] [place] [address] [place] CBC PNL BLD AUTO Collected: 1:28 AM Status: F Source: [facility] Order Comment: Specimen Type : BLOOD SPECIMEN Ordering Facility: [facility] Address: [address] [place] [address] TYPE CODE TESTS RESULT OUT OF RANGE REFERENCE UNITS LAB 6690-2(LOINC) WBC # Bld Auto 6.64 3.70-11.00 k/uL LAB 789-8(LOINC) RBC # Bld Auto 3.06 Low 4.20-6.00 m/uL LAB 718-7(LOINC) Hgb Bld-mCnc 8.5 Low 13.0-17.0 g/dL LAB 4544-3(LOINC) Hct VFr Bld Auto 29.3 Low 39.0-51.0 % LAB 787-2(LOINC) MCV RBC Auto 95.8 80.0-100.0 fL LAB 785-6(LOINC) MCH RBC Qn Auto 27.8 26.0-34.0 pg LAB 786-4(LOINC) MCHC RBC Auto-mCnc 29.0 Low 30.5-36.0 g/dL LAB 14197-5(LOINC) RDW RBC-Rto 19.0 High 11.5-15.0 % LAB 777-3(LOINC) Platelet # Bld Auto 255 150-400 k/uL LAB 87388-3(LOINC) PMV Bld Auto 10.8 9.0-12.7 fL LAB 771-6(LOINC) nRBC # Bld Auto <0.01 <0.01 k/uL Performed By: #### 46867-0 # ### [facility] CLIA [id number] [address] [place] [address] [place] NURSING PROG Observed: 10/18/2024 4:25 PM Status: COMPLETED Source: [facility] HNO ID: [id number] Author: HANNAH WOOD RN Service: ? Author Type: Registered Nurse Type: Nursing Progress Note Filed: 10/18/2024 16:26 Note Text: Patient refused dressing changes this AM. Will attempt again later in evening. PRN IV Dilaudid available before dressing changes. Patient voiced understanding. PROGRESS Observed: 10/18/2024 3:42 PM Status: COMPLETED Source: [facility] HNO ID: [id number] Author: MATA BRIGGS MD Service: Hospital Medicine Author Type: Physician Type: Progress Notes Filed: 10/18/2024 15:44 Note Text: DEPARTMENT OF HOSPITAL MEDICINE PROGRESS NOTE SERVICE DATE: 10/18/2024 SERVICE TIME: 3:42 PM Hospital Medicine/Primary Attending: Mata Briggs MD NIGHT AND WEEKEND COVERAGE: [facility] COVERAGE: Days: [phone], please page Mata Briggs for patient issues. Nights: [phone], please page Team GIM 1: G/H 8th floor: [address]; Non 8th floor [address] Subjective INTERVAL HPI: Seen during dialysis. Feeling well with no complaints. Pain controlled. Current Facility-Administered Medications Medication Dose Route Frequency NaCl 0.9% iv flush bag 20 mL INTRAVENOUS PRN dextrose 15 gram/32 mL 15 g (TRUEPLUS) 15 g ORAL PRN Or glucagon 1 mg injection 1 mg INTRAMUSCULAR PRN Or dextrose 10% iv bolus 12.5 g INTRAVENOUS PRN midodrine 20 mg tab(s) (PROAMATINE) 20 mg ORAL q 8 H polyethylene glycol 3350 17 g packet 17 g ORAL DAILY pantoprazole DR 40 mg tab(s) (PROTONIX) 40 mg ORAL DAILY acetaminophen 650 mg tab(s) (TYLENOL) 650 mg ORAL q 6 H PRN sevelamer carbonate 2,400 mg tab(s) (RENVELA) 2,400 mg ORAL TID w MEALS melatonin 9 mg tab(s) 9 mg ORAL DAILY (8 PM) calcitriol 1.5 mcg cap(s) (ROCALTROL) 1.5 mcg ORAL -- midodrine 20 mg tab(s) (PROAMATINE) 20 mg ORAL PRN DIALYSIS Darbepoetin [place]ito In Polysorbat 60 mcg injection (ARANESP) 60 mcg SUBCUTANEOUS q MON B Complex-Vitamin C-Folic Acid 1 tablet tab(s) (JOHNSON-VIT) 1 tablet ORAL DAILY warfarin 5 mg tab(s) (COUMADIN) 5 mg ORAL DAILY - WARFARIN cinacalcet 60 mg tab(s) (SENSIPAR) 60 mg ORAL DAILY oxyCODONE IR 10 mg tab(s) (ROXICODONE) 10 mg ORAL q 4 H PRN HYDROmorphone 0.5 mg injection (DILAUDID) 0.5 mg INTRAVENOUS DAILY PRN iv contrast (radiology procedure) INTRAVENOUS DIRECTED PRN heparin iv infusion 25,000 units in NaCl 0.45% 250 mL STANDARD NOMOGRAM 0-3,000 Units/hr INTRAVENOUS CONTINUOUS And heparin RATE CHANGE bolus 1,000-10,000 Units for subtherapeutic PTTAC results 1,000-10,000 Units INTRAVENOUS PRN heparin nomogram - NO INITIAL BOLUS OTHER ONCE (heparin bolus) Objective PHYSICAL EXAM: BP 94/65 Pulse 86 Temp (Src) 97.7 (Oral) Resp 16 Ht 5' 9.685 (1.77m) Wt 249 lb 1.9 oz (113.0kg) SpO2 99% BMI 36.07 kg/(m2). O2 Therapy: Room Air, Liters: 2 General: Alert and oriented, NAD HEENT: Mucous membranes moist, oropharynx unremarkable Cardiac: RRR without murmurs, rubs, or gallops. Lungs: Clear to auscultation bilaterally, no respiratory distress Abdomen: Soft, nontender, nondistended. Ext: Warm, well perfused, no edema Skin: Ulcerations on chest and abdomen covered with dressing. Lines, Drains, and Airways Line Duration Central Line Single Lumen Tunneled Right Neck -- days Dialysis / Apheresis Double Lumen 10/05/24 External Facility Tunneled Left Femoral 13 days Peripheral 10/12/24 0530 [facility] Short Right Forearm 20 Gauge 6 days Reviewed lines and needs to be continued: REASONS: Intravenous fluids DATA: Diagnostic tests reviewed for today's visit: CBC, Coags, BMP, Mg, Phos Recent Labs 10/18/24 0746 10/17/24 0840 10/17/24 0730 10/16/24 0528 WBC 6.29 5.16 -- 5.08 HB 8.4* 8.5* -- 8.5* HCT 28.9* 28.4* -- 28.8* PLT 266 241 -- 248 INR 2.0* -- 1.7* 1.5* APTT 78.3* -- 70.3* 73.7* NA 135* 137 -- 137 K 6.0* 5.3* -- 4.5 CHLOR 95* 95* -- 95* CO2 23 22 -- 26 BUN 42* 35* -- 20 CREAT 10.08* 8.35* -- 6.04* GLUC 74 77 -- 88 CA 8.0* 8.5 -- 9.0 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 Personal history of DVT (deep vein thrombosis) PAF (paroxysmal atrial fibrillation) ([facility]) History of stroke Hypotension, chronic Anemia due to stage 5 chronic kidney disease, not on chronic dialysis ([facility]) ([facility]) Status post Maze operation for atrial fibrillation Skin ulcer, limited to breakdown of skin ([facility]) SVC syndrome Generalized weakness Impaired functional mobility, balance, gait, and endurance HOSPITAL COURSE: Justine Weston is a 44 year old male with h/o atrial fibrillation and severe mitral stenosis s/p mitral valve replacement with On-x valve, Maze procedure and RADHA clip on 08/21/2021, currently on Coumadin, ESRD on IHD via left femoral vein TDC on MWF([facility] ), 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 He also expressed a poor pain control on oxycodone. Patient follows with pain management as outpatient for pain associated with chest and abdominal wounds. He currently takes oxycodone 10 mg every 8 hours. Denied fevers or foul-smelling discharge from both wounds. Receiving wound care at home. Chest and abdomen ulcerations - No overt evidence of infection, observing off abx - Evaluated by dermatology and s/p biopsy, continuing wound care in the meantime. Follow biopsy result - Pain control with prn oxycodone, dilaudid for breakthrough, appreciate pain med input. Atrial fibrillation and severe mitral stenosis s/p mechanical mitral valve replacement with On-x valve, Maze procedure and RADHA clip on 08/21/2021. - Cont bridging with heparin gtt, coumadin 5 mg daily -- INR goal 2.5 - 3.5 ESRD on hemodialysis via left femoral vein TDC on MWF SVC syndrome-multiple right and left IJ catheters placed in past resulting in stenosis of central veins. - Has R-IJ lorena with possible plan for intervention -- IR consulted and CT venogram C/A/P as recommended is (CT abdomen completed yesterday evening but not chest -- plan to return late today or tomorrow AM) Anemia of ESRD -Hb at baseline(8.0-8.5) GERD -continue pantoprazole Obesity YEIMY on CPAP Secondary hyperparathyroidism -continue calcitriol, Cinacalcet, sevelamer Exogenous Class 2 Obesity Medication and Non-Pharmacologic VTE Prophylaxis/Anticoagulants Anticoagulant AND Antiplatelet Medications (From admission, onward) Start Dose Route Frequency Last Action Ordered Stop 10/18/24 1230 heparin iv infusion 25,000 units in NaCl 0.45% 250 mL STANDARD NOMOGRAM (Heparin Infusion + Bolus for Subtherapeutic PTTAC) 0-30 mL/hr Placed in And Linked Group 0-3,000 Units/hr INTRAVENOUS CONTINUOUS Ordered 10/18/24 1213 -- 10/14/24 1014 warfarin 5 mg tab(s) (COUMADIN) 5 mg ORAL DAILY - WARFARIN Given, 10/17 1704 10/14/24 1015 -- 10/12/24 1111 activity - mobilize patient (nj,ms) VTE Prophylaxis: VTE prophylaxis appropriate Disposition: SNF, [facility] assistance Plan of care discussed with Provider, RN, Patient SIGNATURE: Mata Briggs MD PATIENT NAME: Elia Weston NUTRITION Observed: 10/18/2024 1:44 PM Status: COMPLETED Source: [facility] ID: [id number] Author: BHASKAR RAMIREZ DTR Service: Nutrition Therapy Author Type: Tractor Driver Teamster Type: Nutrition Filed: 10/18/2024 13:45 Note Text: NUTRITION THERAPY CLERICAL ORDER FILLER NOTE SERVICE DATE: 10/18/2024 SERVICE TIME: 915 Visit Type: Follow-Up Evaluation Goals Met: Met (The patient is currently meeting nutritional goals when nutritional supplements are being consumed.) Plan of Care: Supplements: Nepro Follow-Up: Tech Reassessment Nursing Admission Assessment Malnutrition Score: 0 Nutrition Intake: Diet Orders (From admission, onward) Start Ordered 10/13/24 1300 DIET SUPPLEMENTS START NOW Question Answer Comment Supplement 1 (19 years and up) NEPRO BUTTER PECAN Supplement 1 Frequency TWICE DAILY WITH MEALS 10/13/24 1248 10/12/24 1117 DIET RENAL START NOW Question: Renal Answer: 2400 MG K / 2400 MG NA 10/12/24 1117 Average Daily Calorie Intake (kcal): 1196 kcal Average Daily Protein Intake (gm): 49 gm Average intake over: 5 days Average Supplement Intake (kcal): 840 kcal Average Supplement Intake (gm): 38 gm Average supplement intake over: 5 days Appetite: Good GI Symptoms: None Anthropometrics: Body mass index is 36.07 kg/m?. Loss of lean body mass/visual muscle wasting: No Weight Change: Stable Food Preferences: Nutritional supplements are being tolerated when being delivered. Allergies: No food allergies MNT Billing: $ Routine Care : 1-15 minutes SIGNATURE: Bhaskar Ramirez DTR PATIENT NAME: Elia Weston DATE: October 18, 2024 TIME: 1:44 PM CASE MANAGEM Observed: 10/18/2024 12:50 PM Status: COMPLETED Source: [facility] ID: [id number] Author: EILEEN PERALTA RN Service: Care Management Author Type: Registered Nurse Type: Care Mgt Progress Note Filed: 10/18/2024 17:26 Note Text: CARE MANAGEMENT PROGRESS NOTE SERVICE DATE: 10/18/2024 SERVICE TIME: 12:50 PM LOS: 6 days Needs Prior to Discharge: To Be Determined;Accepting Facility;Bed Availability;Insurance Authorization;Wound Care;Discharge Transportation Post-Acute Discharge Plan: SNF vs [facility], Pending medical stability for hospital discharge. Per EMR chart review: -Cont bridging with heparin gtt, coumadin -- INR goal 2.5 - 3.5 -Evaluated by dermatology and s/p biopsy, Follow biopsy result - IR consulted and CT venogram C/A/P 10/18 escalation engineer patient for Home PT To discuss discharge planning, CM went to bedside, patient was out of room/off unit. Updated [facility] SNF list and [facility] printout left at bedside and sent to patient's phone. [facility] only remaining accepting SNF with dialysis support. Patient is parked here, may need transport support. CM to follow. SIGNATURE: Eileen Peralta RN PATIENT NAME: Elia Weston DATE: October 18, 2024 TIME: 12:50 PM CONSULT PROG Observed: 10/18/2024 12:34 PM Status: COMPLETED Source: [facility] HNO ID: [id number] Author: VICKIE DURHAM APRN.MIKI Service: Nephrology Author Type: Nurse Practitioner Type: Consult Progress Note Filed: 10/18/2024 14:15 Note Text: Department of Kidney Medicine Medical Specialties [place] [facility] NEPHROLOGY CONSULT SERVICE PROGRESS NOTE INTERVAL HISTORY: Patient seen on IHD. - Orders confirmed and documented in LEONEL - 2 K bath, UF Goal of 4 L, in a 3.45 hr treatment with a F 250 filter - will follow BP tends to get as much UF off as possible -Patient tolerating dialysis well -Denies any chest pain, shortness of breath or dizziness -Denies any nausea, vomiting, muscle aches or headaches Admission weight: 113.4 kg (250 lb) Last recorded weight: 113 kg (249 lb 1.9 oz) heparin MEDICATIONS: Current Facility-Administered Medications Medication Dose Route Frequency NaCl 0.9% iv flush bag 20 mL INTRAVENOUS PRN dextrose 15 gram/32 mL 15 g (TRUEPLUS) 15 g ORAL PRN Or glucagon 1 mg injection 1 mg INTRAMUSCULAR PRN Or dextrose 10% iv bolus 12.5 g INTRAVENOUS PRN midodrine 20 mg tab(s) (PROAMATINE) 20 mg ORAL q 8 H polyethylene glycol 3350 17 g packet 17 g ORAL DAILY pantoprazole DR 40 mg tab(s) (PROTONIX) 40 mg ORAL DAILY acetaminophen 650 mg tab(s) (TYLENOL) 650 mg ORAL q 6 H PRN sevelamer carbonate 2,400 mg tab(s) (RENVELA) 2,400 mg ORAL TID w MEALS melatonin 9 mg tab(s) 9 mg ORAL DAILY (8 PM) calcitriol 1.5 mcg cap(s) (ROCALTROL) 1.5 mcg ORAL MO-WE- midodrine 20 mg tab(s) (PROAMATINE) 20 mg ORAL PRN DIALYSIS Darbepoetin Osito In Polysorbat 60 mcg injection (ARANESP) 60 mcg SUBCUTANEOUS q MON B Complex-Vitamin C-Folic Acid 1 tablet tab(s) (JOHNSON-VIT) 1 tablet ORAL DAILY warfarin 5 mg tab(s) (COUMADIN) 5 mg ORAL DAILY - WARFARIN cinacalcet 60 mg tab(s) (SENSIPAR) 60 mg ORAL DAILY oxyCODONE IR 10 mg tab(s) (ROXICODONE) 10 mg ORAL q 4 H PRN HYDROmorphone 0.5 mg injection (DILAUDID) 0.5 mg INTRAVENOUS DAILY PRN iv contrast (radiology procedure) INTRAVENOUS DIRECTED PRN heparin iv infusion 25,000 units in NaCl 0.45% 250 mL STANDARD NOMOGRAM 0-3,000 Units/hr INTRAVENOUS CONTINUOUS And heparin RATE CHANGE bolus 1,000-10,000 Units for subtherapeutic PTTAC results 1,000-10,000 Units INTRAVENOUS PRN heparin nomogram - NO INITIAL BOLUS OTHER ONCE (heparin bolus) ALLERGIES: Gabapentin and Trazodone VITAL SIGNS: BP 94/65 Pulse 86 Temp 36.5 ?C (97.7 ?F) (Oral) Resp 16 Ht 177 cm (5' 9.69) Wt 113 kg (249 lb 1.9 oz) SpO2 99% BMI 36.07 kg/m? PHYSICAL EXAM: GENERAL: adult male, alert, in no acute distress, cooperative, lying in bed SKIN: Skin color, texture, turgor normal. No rashes or lesions. HEENT: normocephalic, atraumatic NECK: no JVD, masses or bruits LUNGS:. Good diaphragmatic excursion and normal respiratory effort. CARDIAC: RRR S1S2 Normal bowel sounds. EXTREMITIES:++BLE edema, no joint swelling NEURO: AOx3, normal speech, muscle strength grossly intact PSYCH: normal judgement and insight ACCESS: LLE TDC Lines, Drains, and Airways Line Duration Central Line Single Lumen Tunneled Right Neck -- days Dialysis / Apheresis Double Lumen 10/05/24 External Facility Tunneled Left Femoral 13 days Peripheral 10/12/24 0530 [facility] Short Right Forearm 20 Gauge 6 days Labs: Recent Labs 10/18/24 0746 10/17/24 0840 10/17/24 0730 10/16/24 0528 WBC 6.29 5.16 -- 5.08 HB 8.4* 8.5* -- 8.5* HCT 28.9* 28.4* -- 28.8* PLT 266 241 -- 248 INR 2.0* -- 1.7* 1.5* APTT 78.3* -- 70.3* 73.7* NA 135* 137 -- 137 K 6.0* 5.3* -- 4.5 CHLOR 95* 95* -- 95* CO2 23 22 -- 26 ANION 17* 20* -- 16* BUN 42* 35* -- 20 CREAT 10.08* 8.35* -- 6.04* GLUC 74 77 -- 88 CA 8.0* 8.5 -- 9.0 ASSESSMENT: 44 year old male with Pmhx of Afib, hx MVR on coumadin, ESRD on HD MWF, hyperparathyroidism, HTN, hx of SVC syndrome, HLD, obesity and YEIMY presenting with complaint of painful chronic chest wound and missed dialysis. He was recently admitted for a dislodged catheter and had femoral TDC 50cm replacement 10/07/24. His last HD was Friday. Admitting labs notable for hyperK and by wt is ~12kg over dry weight. 1. ESRD Hx First HD: 2005 Unit: [facility] Najma Configuration Release Manager: Dr. Melendez Days: EDW: 114kg Access: L Fem TDC SHPT: rocaltrol 1.5mcg TIW, sensipar 60mg daily, PTH 1500 Heparin: 10,000u bolus 2. Electrolytes: -Potassium - hyperkalemia - will modulate with 2K bath in DRYWALL SANDER -Sodium -135- stable 3. Volume status: -hypervolemic - BP 129/80 -Midodrine - Pre weight : 113.0 Kg 4. Acid-base: - AGMA - will modulate with DRYWALL SANDER 5. Ca/P/Pth/Bone mineral disease: - Sevelamer with meals. Sensipar daily and Calcitriol on dialysis days -previous punch bx in 2022 was not consistent with calciphylaxis 6. Anemia of CKD below goal, high ferritin PLAN: - HD today 3.45 hr F250, Qb400, UF 4L - next session Friday () - EDW 114kg - continue Aranesp QMonday - nephrocaps - renvela with meals Consent for DRYWALL SANDER: ESRD Standard ESRD recommendations and precautions: - DAILY phos please - Strict IANDOs and Daily weight - Consider a RENAL Diet for HD patients - Fluid restriction < 1 L - Start Nephrocap or other renal multivitamin to replace water-soluble vitamins lost during dialysis - Avoid Lovenox, Demerol, Morphine, K-containing IVF, Mg- or Phos- containing enemas -Dose meds eGFR<10 Consent for DRYWALL SANDER: ESRD Outpatient dialysis disposition plan: contact [phone] and ask to speak with the director of front office as needed for assistance with post-discharge arrangements. Please DO NOT schedule patient for a nephrology follow up appointment. Kidney care will be provided by the primary data warehousing engineer at their dialysis unit upon hospital discharge. Vickie Durham APRN.[facility] Nephrology and Hypertension [facility] October 18, 2024 2:12 PM PAGER # [phone] Disclosures: Parts of the current progress note may have been copied from a previous note. FOR AFTER HOUR CONCERNS BETWEEN 5PM - 7AM CONTACT ON-CALL NEPHROLOGY FELLOW [id number] THERAPY NT Observed: 10/18/2024 12:00 PM Status: COMPLETED Source: [facility] HNO ID: [id number] Author: NAVARRO CHOW OTR/L, OTD Service: Occupational Therapy Author Type: Occupational Therapist Type: Therapy (PT/OT/Speech/Resp) Filed: 10/18/2024 12:00 Note Text: OCCUPATIONAL THERAPY MISSED VISIT SERVICE DATE: 10/18/2024 SERVICE TIME: 1200 ROOM: [place] [address] ([facility]) Patient not seen due to Test / Procedure (HD). SIGNATURE: MARION Mckeon OTD PATIENT NAME: Elia Weston DATE: October 18, 2024 TIME: 12:00 PM THERAPY NT Observed: 10/18/2024 11:55 AM Status: COMPLETED Source: [facility] HNO ID: [id number] Author: MARÍA ESPARZA, PT, DPT Service: Physical Therapy Author Type: Physical Therapist Type: Therapy (PT/OT/Speech/Resp) Filed: 10/18/2024 11:55 Note Text: Physical Therapy Treatment Summary SERVICE DATE: 10/18/2024 SERVICE TIME: 1127 to 1151 ROOM: H080-10 PT 6 Clicks Score: 17 DISCHARGE RECOMMENDATIONS Home PT Recommended Discharge Disposition Comments: - however, patient requesting short stay at rehab facility at discharge for rehab and wound care Recommended Discharge Disposition Due to: (-) Recommended Discharge Equipment: To Be Determined ASSESSMENT Response to Therapy Interventions: Good Participation in Activities Session limited this date due to arrival of transport to take pt to dialysis. Pt was able to walk in hallway with IV pole support with CGA and performed seated LE exercises. PRECAUTIONS Fall Risk CURRENT HOSPITAL COURSE presenting with uncontrolled pain from chest and abdominal wounds. 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 IND ADLs although he reports that bathing and dressing has been painful and time-consuming. Has been sleeping in recliner 2/2 to pain. Endorses one fall ~1 week ago from LOB. Drives. SUBJECTIVE Pt pleasant and agreeable to participate. THERAPY DIAGNOSIS Reduced mobility-other TREATMENT INTERVENTIONS Gait Training (11792), Therapeutic Exercise (16145) Timed Code Treatment (minutes): 24 Skilled Treatment Time (minutes): 24 TRAINING AND EDUCATION PROVIDED Benefits of In-Hospital Mobility, Exercise Program, Gait Pattern, Reduction of Deviations, Falls Prevention, Patient Exercise/Therapy Program Support Needs, Role of Physical Therapy, Standing Balance, Transfers, Treatment Protocol THERAPEUTIC SKILLS USED Activity Dosing, Cuing Tactile, Cues for Sequencing/Proper Technique for Activity, Cuing Verbal, Cuing Visual, Physical Assist FUNCTIONAL STATUS Bed Mobility Supine To Sit: (up in chair at beginning and end of session) Transfers Sit To Stand: Contact Guard Assistance Stand To Sit: Contact Guard Assistance Bed to Chair Stand By Assistance Bed To Chair Transfer Type: Stepping Bed To Chair Transfer Equipment: (IV pole) Gait Contact Guard Assistance (progressing to SBA) Gait Device: IV Pole Gait Distance (feet): 100 Stairs GOALS Patient will demonstrate progress to optimize functional mobility, maximize activity tolerance and endurance to maximize function upon discharge. Rehab Potential: Good Progress Toward Goals: Progressing as expected PLAN PT Frequency: 4 Times Per Week (2) Treatment Interventions: Education, Energy Conservation Training, Functional Mobility Training, Strengthening, Balance Training, Neuromuscular Re-education Plan for Next Visit: Gait Training SIGNATURE: María Esparza PT, DPT PATIENT NAME: Elia Weston DATE: October 18, 2024 TIME: 11:55 AM ALLIED HEALTH Observed: 10/18/2024 10:00 AM Status: COMPLETED Source: [facility] HNO ID: [id number] Author: LOLY GREWAL Art Therapist Service: Art Therapy Author Type: Therapist Type: Allied Health Filed: 10/18/2024 12:37 Note Text: ART THERAPY NOTE SERVICE DATE: 10/18/2024 SERVICE TIME: 10:00AM Referred By: PT Reason for Referral: Self-Expression / Relaxation Session Type: Initial Time Spent (minutes): 40 Goals: Coping Through Diversion, Decision Making, Feelings Translated Into Images, Media Experimentation Interventions: Art Based Therapy Response Before After Mood 1/4 0/4 Anxiety 0/10 0/10 Pain 1/10 1/10 Scale: 0 = No pain/anxiety 10 = Worst possible pain/anxiety Response: Media Used: Paints Patient's Verbal Response: Positive Family Present: No Outcome: Goals: Met Goals Met: Coping Through Diversion, Decision Making, Identifying Personal Strengths, Media Experimentation Follow Up: Will Follow Up as Able COMMENTS: Consult received and appreciated. Pt sitting in bedside chair as gag writer introduced self and services. Pt with bright affect, warmly welcomed gag writer in sharing interest in art therapy services. Pt mentioned to be waiting on transport for dialysis but was open to engaging until transport arrived. Pt shared experience with art and expressed interest in learning a new medium; agreeable to experiment with pour paint technique. Pt chose colors in which he found symbolic meaning and followed directions appropriately. Upon completion, pt voiced satisfaction with outcome and was open to sharing his thoughts related to colors used (red=wounds/blood, black=dark times, eduardo=unknown, yellow=sunshine/brightness, blue=water/calmness) and titled his painting, Three Year Trial related to his medical journey. Pt shared how colors help to identify meaning and feelings when words are unable to be found. Empowered pt and provided empathic listening, therapeutic support, and validation of emotions. Pt shared hope and shared briefly of family ( and 2 sons). Pt thanked gag writer for session and time and denied additional needs at this time. Welcomed return pending length of admission. Will follow up as able. SIGNATURE: Loly Grewal, Art Therapist PATIENT NAME: Elia Weston DATE: October 18, 2024 TIME: 12:28 PM PAGER/CONTACT #: [phone] CBC PNL BLD AUTO Collected: 5 7:46 AM Status: F Source: [facility] Order Comment: Specimen Type : BLOOD SPECIMEN Ordering Facility: [facility] Address: [address] [place] [address] TYPE CODE TESTS RESULT OUT OF RANGE REFERENCE UNITS LAB 6690-2(LOINC) WBC # Bld Auto 6.29 3.70-11.00 k/uL LAB 789-8(LOINC) RBC # Bld Auto 3.03 Low 4.20-6.00 m/uL LAB 718-7(LOINC) Hgb Bld-mCnc 8.4 Low 13.0-17.0 g/dL LAB 4544-3(LOINC) Hct VFr Bld Auto 28.9 Low 39.0-51.0 % LAB 787-2(LOINC) MCV RBC Auto 95.4 80.0-100.0 fL LAB 785-6(LOINC) MCH RBC Qn Auto 27.7 26.0-34.0 pg LAB 786-4(LOINC) MCHC RBC Auto-mCnc 29.1 Low 30.5-36.0 g/dL LAB 14542-0(LOINC) RDW RBC-Rto 18.6 High 11.5-15.0 % LAB 777-3(LOINC) Platelet # Bld Auto 266 150-400 k/uL LAB 00147-9(LOINC) PMV Bld Auto 10.8 9.0-12.7 fL LAB 771-6(LOINC) nRBC # Bld Auto <0.01 <0.01 k/uL Performed By: #### 88688-0 # ### [facility] CLIA [id number] [address] [place] [address] [place] PT PNL PPP Collected: 10/18/2024 7:46 AM Status: F Source: [facility] Order Comment: Specimen Type : BLOOD SPECIMEN Ordering Facility: [facility] Address: [address] [place] [address] TYPE CODE TESTS RESULT OUT OF RANGE REFERENCE UNITS LAB 5902-2(LOINC) Prothrombin time 20.2 High 9.7-13.0 sec LAB 6301-6(LOINC) INR PPP 2.0 High 0.9-1.3 Result Comment: Vitamin K An tagonist (VKA) Therapeutic Range: INR 2 to 3 (Target INR of 2.5) Note: For patients treated with VKA drugs, such as warfarin, the [place] College of Chest Physicians 2012 Guideline recommends a therapeutic INR range of 2 to 3 (target INR of 2.5). This recommendation includes high-risk patients with antiphospholipid syndrome with previous arterial or venous thromboembolism, current-generation mechanical or bioprosthetic aortic heart valve replacement. Note: Patients with mechanical aortic valve replacement and additional risk factors for thromboembolic events (atrial fibrillation, previous thromboembolism, LV dysfunction, hypercoagulable conditions) or an older generation mechanical AVR (i.e., ball in-Cage) or any mechanical MVR should have a INR therapeutic range of 2.5 to 3.5 (target INR of 3). Ranjit YOUSSEF, et al. Chest 2012, 141:7S-47S Kevin RA, et al. JACC 2017, 70: 252-289 Performed By: #### 48647-7, PTTAC #### [facility] CLIA [id number] [address] [place] [address] [place] PTT, ANTICOAGULANT THERAPY Collected: 0 10/18/2024 7:46 AM Status: F Source: [facility] Order Comment: Specimen Type : BLOOD SPECIMEN Ordering Facility: [facility] Address: [address] [place], [place] [id number] TYPE CODE TESTS RESULT OUT OF RANGE REFERENCE UNITS LAB 32044-5(LOINC) aPTT PPP 78.3 High 23.0-32.4 sec Performed By: #### 27047-0, PTTAC #### [facility] CLIA [id number] [address] [place] [address] [id number] [id number] [place] BAS METAB 2000 PNL SERPL Collected: 7:46 AM Status: F Source: [facility] Order Comment: Specimen Type : BLOOD SPECIMEN Ordering Facility: [facility] Address: [address] [place] [address] TYPE CODE TESTS RESULT OUT OF RANGE REFERENCE UNITS LAB 2345-7(LOINC) Glucose SerPl-mCnc 74 74-99 mg/dL Result Comment: The [place] Diabetes Association (ADA) provides guidance for cutoff values for fasting glucose and random glucose. The ADA defines fasting as no caloric intake for at least 8 hours. Fasting plasma glucose results between 100 to 125 mg/dL indicate increased risk for diabetes (prediabetes). Fasting plasma glucose results greater than or equal to 126 mg/dL meet the criteria for diagnosis of diabetes. In the absence of unequivocal hyperglycemia, results should be confirmed by repeat testing. In a patient with classic symptoms of hyperglycemia or hyperglycemic crisis, random plasma glucose results greater than or equal to 200 mg/dL meet the criteria for diagnosis of diabetes. Reference: Standards of Medical Care in Diabetes 2016, [place] Diabetes Association. Diabetes Care. 2016.39(Suppl 1). LAB 3094-0(LOINC) BUN SerPl-mCnc 42 High 9-24 mg/ dL LAB 2160-0(LOINC) Creat SerPl-mCnc 10.08 High 0.73-1.22 mg/dL LAB 2951-2(LOINC) Sodium SerPl-sCnc 135 Low 136-144 mmol/L LAB 2823-3(LOINC) Potassium SerPl-sCnc 6.0 High 3.7-5.1 mmol/L LAB 2075-0(LOINC) Chloride SerPl-sCnc 95 Low 98-107 mmol/L LAB 2028-9(LOINC) CO2 SerPl-sCnc 23 22-30 mmo l/L LAB 63725-5(LOINC) Anion Gap SerPl-sCnc 17 High 8-15 mmol/L LAB 83485-4(LOINC) Calcium SerPl-mCnc 8.0 Low 8.5-10.2 mg/dL LAB 57968-7(LOINC) Creatinine + eGFR Pnl SerPlBld 6 Low >=60 mL/min/1 .73m??? Result Comment: Estimated Gl omerular Filtration Rate (eGFR) is calculated using the 2020 CKD-EPI creatinine equation. This equation utilizes serum creatinine, sex, and age as parameters. The creatinine assay has traceable calibration to isotope dilution-mass spectrometry. Refer to KDIGO guidelines for clinical interpretation. In patients with unstable renal function, e.g. those with acute kidney injury, the eGFR may not accurately reflect actual GFR. Performed By: #### 87180-0 # ### [facility] CLIA [id number] [address] [place] [address] PT ED Observed: 10/18/2024 7:20 AM Status: COMPLETED Source: [facility] HNO ID: [id number] Author: SANA DOMINGUEZ RPh Service: Pharmacy Author Type: Pharmacist Type: Patient Education Filed: 10/18/2024 07:20 Note Text: Heart Failure Counseling with Video Instruction Education Note Patient Name:Sagrario Weston Service Date: 10/18/2024 Service Time: 7:20 AM Heart Failure Education Provided: Patient was provided video instruction of heart failure management, activity as tolerated, signs and symptoms of heart failure/worsening heart failure, and to contact their physician if exhibits these symptoms. Video instructed patient to contact his or her HF physician if his or her weight increases or decreases more than or equal to 4 lbs from dry weight. Medication Education Provided: 1. Reason for taking medications and treatment goals. 2. Benefits of medication therapy. 3. How medications work. 4. Necessary laboratory monitoring. 5. When to take medications and what to do if a dose is missed. 6. Drug interactions (Rx, OTC, herbal) and importance of notifying healthcare provider with any medication changes. 7. Potential duration of therapy. 8. Potential side effects of medications. 9. Use of control measures if applicable. 10. Importance of regularly filling prescriptions and taking medications. 11. Proper storage of medications. Heart Failure education via video instruction was documented by nursing staff. If additional medication education is warranted, please contact the pharmacy. Current Inpatient Medications: Current Facility-Administered Medications Medication Dose Route Frequency NaCl 0.9% iv flush bag 20 mL INTRAVENOUS PRN dextrose 15 gram/32 mL 15 g (TRUEPLUS) 15 g ORAL PRN Or glucagon 1 mg injection 1 mg INTRAMUSCULAR PRN Or dextrose 10% iv bolus 12.5 g INTRAVENOUS PRN heparin iv infusion 25,000 units in NaCl 0.45% 250 mL STANDARD NOMOGRAM 0-3,000 Units/hr INTRAVENOUS CONTINUOUS And heparin RATE CHANGE bolus 1,000-10,000 Units for subtherapeutic PTTAC results 1,000-10,000 Units INTRAVENOUS PRN midodrine 20 mg tab(s) (PROAMATINE) 20 mg ORAL q 8 H polyethylene glycol 3350 17 g packet 17 g ORAL DAILY pantoprazole DR 40 mg tab(s) (PROTONIX) 40 mg ORAL DAILY acetaminophen 650 mg tab(s) (TYLENOL) 650 mg ORAL q 6 H PRN sevelamer carbonate 2,400 mg tab(s) (RENVELA) 2,400 mg ORAL TID w MEALS melatonin 9 mg tab(s) 9 mg ORAL DAILY (8 PM) calcitriol 1.5 mcg cap(s) (ROCALTROL) 1.5 mcg ORAL MO-WE- midodrine 20 mg tab(s) (PROAMATINE) 20 mg ORAL PRN DIALYSIS Darbepoetin Osito In Polysorbat 60 mcg injection (ARANESP) 60 mcg SUBCUTANEOUS q MON B Complex-Vitamin C-Folic Acid 1 tablet tab(s) (JOHNSON-VIT) 1 tablet ORAL DAILY warfarin 5 mg tab(s) (COUMADIN) 5 mg ORAL DAILY - WARFARIN cinacalcet 60 mg tab(s) (SENSIPAR) 60 mg ORAL DAILY oxyCODONE IR 10 mg tab(s) (ROXICODONE) 10 mg ORAL q 4 H PRN HYDROmorphone 0.5 mg injection (DILAUDID) 0.5 mg INTRAVENOUS DAILY PRN Sana Dominguez RPh CTA ABD/PELV W IVCON Observed: 5 8:23 PM Status: F Source: [facility] * * *Final Report* * * DATE OF EXAM: Oct 17 2024 8:23PM [facility] 0134 - CTA ABD/PELV W IVCON / PROCEDURE REASON: Post operative complication suspected * * * * Physician Interpretation * * * * EXAMINATION: CTA ABDOMEN AND PELVIS WITH CONTRAST, WITH 3-D RECONSTRUCTIONS HISTORY: 44-year-old male with Post operative complication suspected TECHNIQUE: Spiral CT acquisition following bolus infusion of IV iodinated contrast. 2-D and 3-D reconstructions were also provided using a separate workstation. Dose reduction techniques were employed. Contrast: IV: 135 mL of Omnipaque 350 CT Radiation dose: Integrated Dose-length product (DLP) for this visit = 2318 mGy*cm. CT Dose Reduction Employed: Automated exposure control (AEC) COMPARISON: CTA dated 03/18/2024 RESULT: Vasculature: Left-sided femoral tunneled catheter with the distal tip in the right atrium. Infrarenal IVC appears normal in caliber with likely patency throughout. The right internal and external iliac vein are patent. There is linear density in the right external iliac vein likely related to calcification in the setting of chronic thrombotic disease. Chronic scarring narrowing is noted of the left common and external iliac vein. Diffuse body wall collaterals are seen in the anterior, lateral and posterior subcutaneous tissue, right greater than left. Diffuse calcification of the spermatic cord vasculature. No evidence of aneurysm, pseudoaneurysm, dissection, or hemodynamically significant stenosis. Vasculature: The celiac axis and SMA are patent. The portal vein and branches, splenic vein, SMV, and hepatic veins are patent. There are atherosclerotic calcifications without aneurysmal dilation. Lung Bases: Unremarkable. Abdomen and pelvis: Liver: No mass. Biliary: No bile duct dilation. Spleen: No mass. No splenomegaly. Pancreas: No mass or duct dilation. Adrenals: No mass. Kidneys: Bilateral renal cortical atrophy cysts. No mass, calculus or hydronephrosis. GI tract: No small or large bowel dilatation. There is diverticulosis without secondary findings of diverticulitis. The appendix is normal. Lymph nodes: Borderline enlarged bilateral inguinal lymph nodes. Mesentery/Peritoneum: No ascites or mass. Retroperitoneum: No mass. Pelvis: No mass, ascites or fluid collection. Bones/Soft Tissues: Degenerative changes of the lumbar spine. Severe bilateral sacroiliitis. Stable bulky soft tissue calcification and right pubis likely related to chronic kidney disease. Provider Relations Coordinator (topogram) images: No additional findings. IMPRESSION: Redemonstrated diffuse subcutaneous extensive abdominal wall collaterals, similar to prior dated 03/18/2024. Interval placement of a left common femoral vein tunneled catheter with the tip terminating in the right atrium. IVC is patent. Calcification are noted in the iliac veins likely related to chronic thrombotic disease. Interval decreased caliber of the common iliac vein consistent with stenotic disease. Residential Driver: PSCB Transcribe Date/Time: Oct 18 2024 10:49A Dictated by : RM BIRD MD This examination was interpreted and the report reviewed and electronically signed by: RM BIRD MD on Oct 18 2024 11:16AM EST [id number] PROGRESS Observed: 10/17/2024 1:43 PM Status: COMPLETED Source: [facility] HNO ID: [id number] Author: MATA BRIGGS MD Service: Hospital Medicine Author Type: Physician Type: Progress Notes Filed: 10/17/2024 13:46 Note Text: DEPARTMENT OF HOSPITAL MEDICINE PROGRESS NOTE SERVICE DATE: 10/17/2024 SERVICE TIME: 1:43 PM Hospital Medicine/Primary Attending: Mata Briggs MD NIGHT AND WEEKEND COVERAGE: [facility] COVERAGE: Days: [phone], please page Mata Briggs for patient issues. Nights: [phone], please page Team GIM 1: G/H 8th floor: [phone]; Non 8th floor [phone] Subjective INTERVAL HPI: Feeling well overall without acute complaints. Pain controlled. Asking about timing for CT and discharge to SNF. Current Facility-Administered Medications Medication Dose Route Frequency NaCl 0.9% iv flush bag 20 mL INTRAVENOUS PRN dextrose 15 gram/32 mL 15 g (TRUEPLUS) 15 g ORAL PRN Or glucagon 1 mg injection 1 mg INTRAMUSCULAR PRN Or dextrose 10% iv bolus 12.5 g INTRAVENOUS PRN heparin iv infusion 25,000 units in NaCl 0.45% 250 mL STANDARD NOMOGRAM 0-3,000 Units/hr INTRAVENOUS CONTINUOUS And heparin RATE CHANGE bolus 1,000-10,000 Units for subtherapeutic PTTAC results 1,000-10,000 Units INTRAVENOUS PRN midodrine 20 mg tab(s) (PROAMATINE) 20 mg ORAL q 8 H polyethylene glycol 3350 17 g packet 17 g ORAL DAILY pantoprazole DR 40 mg tab(s) (PROTONIX) 40 mg ORAL DAILY acetaminophen 650 mg tab(s) (TYLENOL) 650 mg ORAL q 6 H PRN sevelamer carbonate 2,400 mg tab(s) (RENVELA) 2,400 mg ORAL TID w MEALS melatonin 9 mg tab(s) 9 mg ORAL DAILY (8 PM) calcitriol 1.5 mcg cap(s) (ROCALTROL) 1.5 mcg ORAL MO-WE- midodrine 20 mg tab(s) (PROAMATINE) 20 mg ORAL PRN DIALYSIS [START ON 10/18/2024] Darbepoetin Osito In Polysorbat 60 mcg injection (ARANESP) 60 mcg SUBCUTANEOUS q MON B Complex-Vitamin C-Folic Acid 1 tablet tab(s) (JOHNSON-VIT) 1 tablet ORAL DAILY warfarin 5 mg tab(s) (COUMADIN) 5 mg ORAL DAILY - WARFARIN cinacalcet 60 mg tab(s) (SENSIPAR) 60 mg ORAL DAILY oxyCODONE IR 10 mg tab(s) (ROXICODONE) 10 mg ORAL q 4 H PRN HYDROmorphone 0.5 mg injection (DILAUDID) 0.5 mg INTRAVENOUS DAILY PRN Objective PHYSICAL EXAM: BP 101/65 Pulse 79 Temp (Src) 97.2 (Oral) Resp 18 Ht 5' 9.685 (1.77m) Wt 249 lb 1.9 oz (113.0kg) SpO2 98% BMI 36.07 kg/(m2). O2 Therapy: Room Air General: Alert and oriented, NAD HEENT: Mucous membranes moist, oropharynx unremarkable Cardiac: RRR without murmurs, rubs, or gallops. Lungs: Clear to auscultation bilaterally, no respiratory distress Abdomen: Soft, nontender, nondistended. Ext: Warm, well perfused, no edema Skin: Ulcerations on chest and abdomen covered with dressing. Lines, Drains, and Airways Line Duration Central Line Single Lumen Tunneled Right Neck -- days Dialysis / Apheresis Double Lumen 10/05/24 External Facility Tunneled Left Femoral 12 days Peripheral 10/12/24 0530 [facility] Short Right Forearm 20 Gauge 5 days Peripheral 10/16/24 1330 [facility] Short Left Forearm 20 Gauge 1 day Reviewed lines and needs to be continued: REASONS: Intravenous fluids DATA: Diagnostic tests reviewed for today's visit: CBC, Coags, BMP, Mg, Phos Recent Labs 10/17/24 0840 10/17/24 0730 10/16/24 0528 10/15/24 2230 10/15/24 1335 10/15/24 0431 WBC 5.16 -- 5.08 -- -- 4.99 HB 8.5* -- 8.5* -- -- 8.2* HCT 28.4* -- 28.8* -- -- 27.0* PLT 241 -- 248 -- -- 238 INR -- -- 1.5* -- -- 1.4* APTT -- 70.3* 73.7* 59.0* < > >139.0* NA 137 -- 137 -- -- 137 K 5.3* -- 4.5 -- -- 4.6 CHLOR 95* -- 95* -- -- 92* CO2 22 -- 26 -- -- 28 BUN 35* -- 20 -- -- 27* CREAT 8.35* -- 6.04* -- -- 8.02* GLUC 77 -- 88 -- -- 84 CA 8.5 -- 9.0 -- -- 8.4* < > = values in this interval not displayed. 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 Personal history of DVT (deep vein thrombosis) PAF (paroxysmal atrial fibrillation) ([facility]) History of stroke Hypotension, chronic Anemia due to stage 5 chronic kidney disease, not on chronic dialysis ([facility]) ([facility]) Status post Maze operation for atrial fibrillation Skin ulcer, limited to breakdown of skin ([facility]) SVC syndrome Generalized weakness Impaired functional mobility, balance, gait, and endurance HOSPITAL COURSE: Justine Weston is a 44 year old male with h/o atrial fibrillation and severe mitral stenosis s/p mitral valve replacement with On-x valve, Maze procedure and RADHA clip on 08/21/2021, currently on Coumadin, ESRD on IHD via left femoral vein TDC on [facility] ), 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 He also expressed a poor pain control on oxycodone. Patient follows with pain management as outpatient for pain associated with chest and abdominal wounds. He currently takes oxycodone 10 mg every 8 hours. Denied fevers or foul-smelling discharge from both wounds. Receiving wound care at home. Chest and abdomen ulcerations - No overt evidence of infection, observing off abx - Evaluated by dermatology and s/p biopsy, continuing wound care in the meantime. Follow biopsy result - Pain control with prn oxycodone, dilaudid for breakthrough, appreciate pain med input. Atrial fibrillation and severe mitral stenosis s/p mitral valve replacement with On-x valve, Maze procedure and RADHA clip on 08/21/2021. - Cont bridging with heparin gtt, coumadin 5 mg daily -- INR pending for today ESRD on hemodialysis via left femoral vein TDC on [facility] SVC syndrome-multiple right and left IJ catheters placed in past resulting in stenosis of central veins. - Has R-IJ lorena with possible plan for intervention -- IR consulted and CT venogram C/A/P as recommended is pending Anemia of ESRD -Hb at baseline(8.0-8.5) GERD -continue pantoprazole Obesity YEIMY on CPAP Secondary hyperparathyroidism -continue calcitriol, Cinacalcet, sevelamer Exogenous Class 2 Obesity Medication and Non-Pharmacologic VTE Prophylaxis/Anticoagulants Anticoagulant AND Antiplatelet Medications (From admission, onward) Start Dose Route Frequency Last Action Ordered Stop 10/14/24 1014 warfarin 5 mg tab(s) (COUMADIN) 5 mg ORAL DAILY - WARFARIN Given, 10/16 1734 10/14/24 1015 -- 10/12/24 0800 heparin iv infusion 25,000 units in NaCl 0.45% 250 mL STANDARD NOMOGRAM (Heparin Infusion + Bolus for Subtherapeutic PTTAC) 0-30 mL/hr Placed in And Linked Group 0-3,000 Units/hr INTRAVENOUS CONTINUOUS Rate Verify, 10/17 0852 10/12/24 0740 -- 10/12/24 1111 activity - mobilize patient (nj,oh) VTE Prophylaxis: VTE prophylaxis appropriate Disposition: SNF, [facility] assistance Plan of care discussed with Provider, RN, Patient SIGNATURE: Mata Briggs MD PATIENT NAME: Elia Weston BAS METAB 2000 PNL SERPL Collected: 8:40 AM Status: F Source: [facility] Order Comment: Specimen Type : BLOOD SPECIMEN Ordering Facility: [facility] Address: [address] [place] [address] TYPE CODE TESTS RESULT OUT OF RANGE REFERENCE UNITS LAB 2345-7(LOINC) Glucose SerPl-mCnc 77 74-99 mg/dL Result Comment: The [place] Diabetes Association (ADA) provides guidance for cutoff values for fasting glucose and random glucose. The ADA defines fasting as no caloric intake for at least 8 hours. Fasting plasma glucose results between 100 to 125 mg/dL indicate increased risk for diabetes (prediabetes). Fasting plasma glucose results greater than or equal to 126 mg/dL meet the criteria for diagnosis of diabetes. In the absence of unequivocal hyperglycemia, results should be confirmed by repeat testing. In a patient with classic symptoms of hyperglycemia or hyperglycemic crisis, random plasma glucose results greater than or equal to 200 mg/dL meet the criteria for diagnosis of diabetes. Reference: Standards of Medical Care in Diabetes 2016, [place] Diabetes Association. Diabetes Care. 2016.39(Suppl 1). LAB 3094-0(LOINC) BUN SerPl-mCnc 35 High 9-24 mg/ dL LAB 2160-0(LOINC) Creat SerPl-mCnc 8.35 High 0.73-1.22 mg/dL LAB 2951-2(LOINC) Sodium SerPl-sCnc 137 136-144 mmol/L LAB 2823-3(LOINC) Potassium SerPl-sCnc 5.3 High 3.7-5.1 mmol/L LAB 2075-0(LOINC) Chloride SerPl-sCnc 95 Low 98-107 mmol/L LAB 2028-9(LOINC) CO2 SerPl-sCnc 22 22-30 mmo l/L LAB 04530-0(LOINC) Anion Gap SerPl-sCnc 20 High 8-15 mmol/L LAB 59835-0(LOINC) Calcium SerPl-mCnc 8.5 8.5-10.2 mg/dL LAB 08558-0(LOINC) Creatinine + eGFR Pnl SerPlBld 8 Low >=60 mL/min/1 .73m??? Result Comment: Estimated Gl omerular Filtration Rate (eGFR) is calculated using the 2020 CKD-EPI creatinine equation. This equation utilizes serum creatinine, sex, and age as parameters. The creatinine assay has traceable calibration to isotope dilution-mass spectrometry. Refer to KDIGO guidelines for clinical interpretation. In patients with unstable renal function, e.g. those with acute kidney injury, the eGFR may not accurately reflect actual GFR. Performed By: #### 07202-0 # ### [facility] CLIA [id number] [address] [place] [address] [place] CBC PNL BLD AUTO Collected: 5 8:40 AM Status: F Source: [facility] Order Comment: Specimen Type : BLOOD SPECIMEN Ordering Facility: [facility] Address: [address] [place] [address] TYPE CODE TESTS RESULT OUT OF RANGE REFERENCE UNITS LAB 6690-2(LOINC) WBC # Bld Auto 5.16 3.70-11.00 k/uL Result Comment: No clot dete cted. LAB 789-8(LOINC) RBC # Bld Auto 3.00 Low 4.20-6.00 m/uL LAB 718-7(LOINC) Hgb Bld-mCnc 8.5 Low 13.0-17.0 g/dL LAB 4544-3(LOINC) Hct VFr Bld Auto 28.4 Low 39.0-51.0 % LAB 787-2(LOINC) MCV RBC Auto 94.7 80.0-100.0 fL LAB 785-6(LOINC) MCH RBC Qn Auto 28.3 26.0-34.0 pg LAB 786-4(LOINC) MCHC RBC Auto-mCnc 29.9 Low 30.5-36.0 g/dL LAB 08937-5(LOINC) RDW RBC-Rto 18.5 High 11.5-15.0 % LAB 777-3(LOINC) Platelet # Bld Auto 241 150-400 k/uL LAB 04398-3(LOINC) PMV Bld Auto 10.9 9.0-12.7 fL LAB 771-6(LOINC) nRBC # Bld Auto <0.01 <0.01 k/uL Performed By: #### 03356-5 # ### [facility] CLIA [id number] [address] [place] [address] [place] PTT, ANTICOAGULANT THERAPY Collected: 0 10/17/2024 7:30 AM Status: F Source: [facility] Order Comment: Specimen Type : BLOOD SPECIMEN Ordering Facility: [facility] Address: [address] [place] [address] TYPE CODE TESTS RESULT OUT OF RANGE REFERENCE UNITS LAB 80410-2(LOINC) aPTT PPP 70.3 High 23.0-32.4 sec Performed By: #### 96190-1, PTTAC #### [facility] CLIA [id number] [address] [place] [address] [place] PT PNL PPP Collected: 10/17/2024 7:30 AM Status: F Source: [facility] Order Comment: Specimen Type : BLOOD SPECIMEN Ordering Facility: [facility] Address: [address] [place] [address] TYPE CODE TESTS RESULT OUT OF RANGE REFERENCE UNITS LAB 5902-2(LOINC) Prothrombin time 18.0 High 9.7-13.0 sec LAB 6301-6(LOINC) INR PPP 1.7 High 0.9-1.3 Result Comment: Vitamin K An tagonist (VKA) Therapeutic Range: INR 2 to 3 (Target INR of 2.5) Note: For patients treated with VKA drugs, such as warfarin, the [place] [employer]icians 2012 Guideline recommends a therapeutic INR range of 2 to 3 (target INR of 2.5). This recommendation includes high-risk patients with antiphospholipid syndrome with previous arterial or venous thromboembolism, current-generation mechanical or bioprosthetic aortic heart valve replacement. Note: Patients with mechanical aortic valve replacement and additional risk factors for thromboembolic events (atrial fibrillation, previous thromboembolism, LV dysfunction, hypercoagulable conditions) or an older generation mechanical AVR (i.e., ball in-Cage) or any mechanical MVR should have a INR therapeutic range of 2.5 to 3.5 (target INR of 3). Ranjit GH, et al. Chest 2012, 141:7S-47S Kevin RA, et al. [facility] 2017, 70: 252-289 Performed By: #### 32655-3, PTTAC #### [facility] CLIA [id number] [address] [place] [address] [place] PROGRESS Observed: 10/16/2024 3:12 PM Status: COMPLETED Source: [facility] HNO ID: [id number] Author: MATA BRIGGS MD Service: Hospital Medicine Author Type: Physician Type: Progress Notes Filed: 10/16/2024 15:22 Note Text: DEPARTMENT OF HOSPITAL MEDICINE PROGRESS NOTE SERVICE DATE: 10/16/2024 SERVICE TIME: 3:12 PM Hospital Medicine/Primary Attending: Mata Briggs MD NIGHT AND WEEKEND COVERAGE: [facility] COVERAGE: Days: [phone], please page Mata Briggs for patient issues. Nights: [phone], please page Team GIM 1: G/H 8th floor: [address]21; Non 8th floor [address] Subjective INTERVAL HPI: Feeling well overall without acute complaints. Notes pain control is improved. Wants to go to SNF on discharge. Current Facility-Administered Medications Medication Dose Route Frequency NaCl 0.9% iv flush bag 20 mL INTRAVENOUS PRN dextrose 15 gram/32 mL 15 g (TRUEPLUS) 15 g ORAL PRN Or glucagon 1 mg injection 1 mg INTRAMUSCULAR PRN Or dextrose 10% iv bolus 12.5 g INTRAVENOUS PRN heparin iv infusion 25,000 units in NaCl 0.45% 250 mL STANDARD NOMOGRAM 0-3,000 Units/hr INTRAVENOUS CONTINUOUS And heparin RATE CHANGE bolus 1,000-10,000 Units for subtherapeutic PTTAC results 1,000-10,000 Units INTRAVENOUS PRN midodrine 20 mg tab(s) (PROAMATINE) 20 mg ORAL q 8 H polyethylene glycol 3350 17 g packet 17 g ORAL DAILY pantoprazole DR 40 mg tab(s) (PROTONIX) 40 mg ORAL DAILY acetaminophen 650 mg tab(s) (TYLENOL) 650 mg ORAL q 6 H PRN sevelamer carbonate 2,400 mg tab(s) (RENVELA) 2,400 mg ORAL TID w MEALS melatonin 9 mg tab(s) 9 mg ORAL DAILY (8 PM) calcitriol 1.5 mcg cap(s) (ROCALTROL) 1.5 mcg ORAL MO-WE-FR midodrine 20 mg tab(s) (PROAMATINE) 20 mg ORAL PRN DIALYSIS [START ON 10/18/2024] Darbepoetin Osito In Polysorbat 60 mcg injection (ARANESP) 60 mcg SUBCUTANEOUS q MON B Complex-Vitamin C-Folic Acid 1 tablet tab(s) (JOHNSON-VIT) 1 tablet ORAL DAILY warfarin 5 mg tab(s) (COUMADIN) 5 mg ORAL DAILY - WARFARIN cinacalcet 60 mg tab(s) (SENSIPAR) 60 mg ORAL DAILY oxyCODONE IR 10 mg tab(s) (ROXICODONE) 10 mg ORAL q 4 H PRN HYDROmorphone 0.5 mg injection (DILAUDID) 0.5 mg INTRAVENOUS DAILY PRN iv contrast (radiology procedure) INTRAVENOUS DIRECTED PRN Objective PHYSICAL EXAM: BP 112/71 Pulse 95 Temp (Src) 98.2 (Oral) Resp 18 Ht 5' 9.685 (1.77m) Wt 249 lb 1.9 oz (113.0kg) SpO2 100% BMI 36.07 kg/(m2). O2 Therapy: Room Air General: Alert and oriented, NAD HEENT: Mucous membranes moist, oropharynx unremarkable Cardiac: RRR without murmurs, rubs, or gallops. Lungs: Clear to auscultation bilaterally, no respiratory distress Abdomen: Soft, nontender, nondistended. Ext: Warm, well perfused, no edema Skin: Ulcerations on chest and abdomen covered with dressing. Lines, Drains, and Airways Line Duration Central Line Single Lumen Tunneled Right Neck -- days Dialysis / Apheresis Double Lumen 10/05/24 External Facility Tunneled Left Femoral 11 days Peripheral 10/12/24 0530 [facility] Short Right Forearm 20 Gauge 4 days Peripheral 10/12/24 0951 Left Forearm 22 Gauge 4 days Reviewed lines and needs to be continued: REASONS: Intravenous fluids DATA: Diagnostic tests reviewed for today's visit: CBC, Coags, BMP, Mg, Phos Recent Labs 10/16/24 0528 10/15/24 2230 10/15/24 1335 10/15/24 0431 10/14/24 2246 10/14/24 0657 WBC 5.08 -- -- 4.99 -- 5.28 HB 8.5* -- -- 8.2* -- 8.3* HCT 28.8* -- -- 27.0* -- 27.9* PLT 248 -- -- 238 -- 262 INR 1.5* -- -- 1.4* -- 1.3 APTT 73.7* 59.0* 78.9* >139.0* < > 75.8* NA 137 -- -- 137 -- 137 K 4.5 -- -- 4.6 -- 4.7 CHLOR 95* -- -- 92* -- 93* CO2 26 -- -- 28 -- 26 BUN 20 -- -- 27* -- 20 CREAT 6.04* -- -- 8.02* -- 6.22* GLUC 88 -- -- 84 -- 75 CA 9.0 -- -- 8.4* -- 8.9 < > = values in this interval not displayed. 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 Personal history of DVT (deep vein thrombosis) PAF (paroxysmal atrial fibrillation) ([facility]) History of stroke Hypotension, chronic Anemia due to stage 5 chronic kidney disease, not on chronic dialysis ([facility]) ([facility]) Status post Maze operation for atrial fibrillation Skin ulcer, limited to breakdown of skin ([facility]) SVC syndrome Generalized weakness Impaired functional mobility, balance, gait, and endurance HOSPITAL COURSE: Justine Weston is a 44 year old male with h/o atrial fibrillation and severe mitral stenosis s/p mitral valve replacement with On-x valve, Maze procedure and RADHA clip on 08/21/2021, currently on Coumadin, ESRD on IHD via left femoral vein TDC on MWF([facility] ), 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 He also expressed a poor pain control on oxycodone. Patient follows with pain management as outpatient for pain associated with chest and abdominal wounds. He currently takes oxycodone 10 mg every 8 hours. Denied fevers or foul-smelling discharge from both wounds. Receiving wound care at home. Chest and abdomen ulcerations - No overt evidence of infection, observing off abx - Evaluated by dermatology and s/p biopsy, continuing wound care in the meantime. - Pain control with prn oxycodone, dilaudid for breakthrough, appreciate pain med input. Atrial fibrillation and severe mitral stenosis s/p mitral valve replacement with On-x valve, Maze procedure and RADHA clip on 08/21/2021. - Cont bridging with heparin gtt, coumadin 5 mg daily -- INR 1.5 today ESRD on hemodialysis via left femoral vein TDC on [facility] SVC syndrome-multiple right and left IJ catheters placed in past resulting in stenosis of central veins. - Has R-IJ lorena with possible plan for intervention -- IR consulted and CT venogram C/A/P as recommended is pending Anemia of ESRD -Hb at baseline(8.0-8.5) GERD -continue pantoprazole Obesity YEIMY on CPAP Secondary hyperparathyroidism -continue calcitriol, Cinacalcet, sevelamer Exogenous Class 2 Obesity Medication and Non-Pharmacologic VTE Prophylaxis/Anticoagulants Anticoagulant AND Antiplatelet Medications (From admission, onward) Start Dose Route Frequency Last Action Ordered Stop 10/14/24 1014 warfarin 5 mg tab(s) (COUMADIN) 5 mg ORAL DAILY - WARFARIN Given, 10/15 1707 10/14/24 1015 -- 10/12/24 0800 heparin iv infusion 25,000 units in NaCl 0.45% 250 mL STANDARD NOMOGRAM (Heparin Infusion + Bolus for Subtherapeutic PTTAC) 0-30 mL/hr Placed in And Linked Group 0-3,000 Units/hr INTRAVENOUS CONTINUOUS Rate Verify, 10/16 0755 10/12/24 0740 -- 10/12/24 1111 activity - mobilize patient (nj,oh) VTE Prophylaxis: VTE prophylaxis appropriate Disposition: SNF, [facility] assistance Plan of care discussed with Provider, RN, Patient SIGNATURE: Mata Briggs MD PATIENT NAME: Elia Weston DATE: October 16, 2024 TIME: 3:12 PM PROGRESS Observed: 10/16/2024 3:12 PM Status: COMPLETED Source: [facility] ID: [id number] Author: MATA BRIGGS MD Service: Hospital Medicine Author Type: Physician Type: Progress Notes Filed: 10/16/2024 15:12 Note Text: Documentation Query Morbid Obesity with YEIMY PROGRESS Observed: 10/16/2024 3:11 PM Status: COMPLETED Source: [facility] HNO ID: [id number] Author: MATA BRIGGS MD Service: Hospital Medicine Author Type: Physician Type: Progress Notes Filed: 10/16/2024 15:11 Note Text: Documentation Query ESRD This document will become part of the patient's medical record. CBC PNL BLD AUTO Collected: 5:28 AM Status: F Source: [facility] Order Comment: Specimen Type : BLOOD SPECIMEN Ordering Facility: [facility] Address: [address] [place] [address] TYPE CODE TESTS RESULT OUT OF RANGE REFERENCE UNITS LAB 6690-2(INC) WBC # Bld Auto 5.08 3.70-11.00 k/uL LAB 789-8(LOINC) RBC # Bld Auto 3.03 Low 4.20-6.00 m/uL LAB 718-7(LOINC) Hgb Bld-mCnc 8.5 Low 13.0-17.0 g/dL LAB 4544-3(LOINC) Hct VFr Bld Auto 28.8 Low 39.0-51.0 % LAB 787-2(LOINC) MCV RBC Auto 95.0 80.0-100.0 fL LAB 785-6(LOINC) MCH RBC Qn Auto 28.1 26.0-34.0 pg LAB 786-4(LOINC) MCHC RBC Auto-mCnc 29.5 Low 30.5-36.0 g/dL LAB 83679-0(LOINC) RDW RBC-Rto 18.2 High 11.5-15.0 % LAB 777-3(LOINC) Platelet # Bld Auto 248 150-400 k/uL LAB 82296-7(INC) PMV Bld Auto 11.0 9.0-12.7 fL LAB 771-6(LOINC) nRBC # Bld Auto <0.01 <0.01 k/uL Performed By: #### 10909-1 # ### [facility] CLIA [id number] [address] [place] PTT, ANTICOAGULANT THERAPY Collected: 0 10/16/2024 5:28 AM Status: F Source: [facility] Order Comment: Specimen Type : BLOOD SPECIMEN Ordering Facility: [facility] Address: [address] [place] [address] TYPE CODE TESTS RESULT OUT OF RANGE REFERENCE UNITS LAB 09511-7(LOINC) aPTT PPP 73.7 High 23.0-32.4 sec Performed By: #### 53417-9, PTTAC #### [facility] CLIA [id number] [address] [place] [address] [place] PT PNL PPP Collected: 10/16/2024 5:28 AM Status: F Source: [facility] Order Comment: Specimen Type : BLOOD SPECIMEN Ordering Facility: [facility] Address: [address] [place] [address] TYPE CODE TESTS RESULT OUT OF RANGE REFERENCE UNITS LAB 5902-2(LOINC) Prothrombin time 15.9 High 9.7-13.0 sec LAB 6301-6(LOINC) INR PPP 1.5 High 0.9-1.3 Result Comment: Vitamin K An tagonist (VKA) Therapeutic Range: INR 2 to 3 (Target INR of 2.5) Note: For patients treated with VKA drugs, such as warfarin, the [place] [employer] 2012 Guideline recommends a therapeutic INR range of 2 to 3 (target INR of 2.5). This recommendation includes high-risk patients with antiphospholipid syndrome with previous arterial or venous thromboembolism, current-generation mechanical or bioprosthetic aortic heart valve replacement. Note: Patients with mechanical aortic valve replacement and additional risk factors for thromboembolic events (atrial fibrillation, previous thromboembolism, LV dysfunction, hypercoagulable conditions) or an older generation mechanical AVR (i.e., ball in-Cage) or any mechanical MVR should have a INR therapeutic range of 2.5 to 3.5 (target INR of 3). Ranjit YOUSSEF, et al. Chest 2012, 141:7S-47S Kevin RUSHING et al. [facility] 2017, 70: 252-289 Performed By: #### 87541-5, PTTAC #### [facility] CLIA [id number] [address] [facility] [place] [address] [place] BAS METAB 2000 PNL SERPL Collected: 5:28 AM Status: F Source: [facility] Order Comment: Specimen Type : BLOOD SPECIMEN Ordering Facility: [facility] Address: [address] [place] [address] TYPE CODE TESTS RESULT OUT OF RANGE REFERENCE UNITS LAB 2345-7(LOINC) Glucose SerPl-mCnc 88 74-99 mg/dL Result Comment: The [place] Diabetes Association (ADA) provides guidance for cutoff values for fasting glucose and random glucose. The ADA defines fasting as no caloric intake for at least 8 hours. Fasting plasma glucose results between 100 to 125 mg/dL indicate increased risk for diabetes (prediabetes). Fasting plasma glucose results greater than or equal to 126 mg/dL meet the criteria for diagnosis of diabetes. In the absence of unequivocal hyperglycemia, results should be confirmed by repeat testing. In a patient with classic symptoms of hyperglycemia or hyperglycemic crisis, random plasma glucose results greater than or equal to 200 mg/dL meet the criteria for diagnosis of diabetes. Reference: Standards of Medical Care in Diabetes 2016, [place] Diabetes Association. Diabetes Care. 2016.39(Suppl 1). LAB 3094-0(LOINC) BUN SerPl-mCnc 20 9-24 mg/ dL LAB 2160-0(LOINC) Creat SerPl-mCnc 6.04 High 0.73-1.22 mg/dL LAB 2951-2(LOINC) Sodium SerPl-sCnc 137 136-144 mmol/L LAB 2823-3(LOINC) Potassium SerPl-sCnc 4.5 3.7-5.1 mmol/L LAB 2075-0(LOINC) Chloride SerPl-sCnc 95 Low 98-107 mmol/L LAB 2028-9(LOINC) CO2 SerPl-sCnc 26 22-30 mmo l/L LAB 90672-1(LOINC) Anion Gap SerPl-sCnc 16 High 8-15 mmol/L LAB 03835-0(LOINC) Calcium SerPl-mCnc 9.0 8.5-10.2 mg/dL LAB 11822-2(LOINC) Creatinine + eGFR Pnl SerPlBld 11 Low >=60 mL/min/1 .73m??? Result Comment: Estimated Gl omerular Filtration Rate (eGFR) is calculated using the 2020 CKD-EPI creatinine equation. This equation utilizes serum creatinine, sex, and age as parameters. The creatinine assay has traceable calibration to isotope dilution-mass spectrometry. Refer to KDIGO guidelines for clinical interpretation. In patients with unstable renal function, e.g. those with acute kidney injury, the eGFR may not accurately reflect actual GFR. Performed By: #### 47613-7 # ### [facility] CLIA [id number] [address] [place] [address] PTT, ANTICOAGULANT THERAPY Collected: 0 10/15/2024 10:30 PM Status: F Source: [facility] Order Comment: Specimen Type : BLOOD SPECIMEN Ordering Facility: [facility] Address: [address] [place] [address] TYPE CODE TESTS RESULT OUT OF RANGE REFERENCE UNITS LAB 30892-0(LOINC) aPTT PPP 59.0 High 23.0-32.4 sec Performed By: #### PTTAC ### # [facility] CLIA [id number] [address] [place] [address] PROGRESS Observed: 10/15/2024 7:21 PM Status: COMPLETED Source: [facility] HNO ID: [id number] Author: PACO GARDUNO MD Service: General Internal Medicine Author Type: Physician Type: Progress Notes Filed: 10/15/2024 19:32 Note Text: DEPARTMENT OF HOSPITAL MEDICINE PROGRESS NOTE SERVICE DATE: 10/15/2024 SERVICE TIME: 11:40 am Hospital Medicine/Primary Attending: Paco Garduno MD NIGHT AND WEEKEND COVERAGE: [facility] COVERAGE: Days: [phone], please page Paco Garduno for patient issues. Nights: [phone], please page Team GIM 1: G/H 8th floor: [address]; Non 8th floor [address] Subjective INTERVAL HPI: Discussed with patient twice today. First discussion when he was in dialysis unit. Patient was not happy with pain regimen. At home he was taking oxycodone 10 mg every 8 hours which was not sufficient to control pain. Requested to increase frequency of oxycodone and add IV Dilaudid prior to dressing changes. Second discussion was at bedside in his room. Patient was tearful after skin biopsy. Apparently IV Dilaudid 0.5 mg prior to biopsy is not helping to control pain. Ordered additional dose of Dilaudid 1 mg IV. Current Facility-Administered Medications Medication Dose Route Frequency NaCl 0.9% iv flush bag 20 mL INTRAVENOUS PRN dextrose 15 gram/32 mL 15 g (TRUEPLUS) 15 g ORAL PRN Or glucagon 1 mg injection 1 mg INTRAMUSCULAR PRN Or dextrose 10% iv bolus 12.5 g INTRAVENOUS PRN heparin iv infusion 25,000 units in NaCl 0.45% 250 mL STANDARD NOMOGRAM 0-3,000 Units/hr INTRAVENOUS CONTINUOUS And heparin RATE CHANGE bolus 1,000-10,000 Units for subtherapeutic PTTAC results 1,000-10,000 Units INTRAVENOUS PRN midodrine 20 mg tab(s) (PROAMATINE) 20 mg ORAL q 8 H polyethylene glycol 3350 17 g packet 17 g ORAL DAILY pantoprazole DR 40 mg tab(s) (PROTONIX) 40 mg ORAL DAILY acetaminophen 650 mg tab(s) (TYLENOL) 650 mg ORAL q 6 H PRN sevelamer carbonate 2,400 mg tab(s) (RENVELA) 2,400 mg ORAL TID w MEALS melatonin 9 mg tab(s) 9 mg ORAL DAILY (8 PM) calcitriol 1.5 mcg cap(s) (ROCALTROL) 1.5 mcg ORAL MO-WE- midodrine 20 mg tab(s) (PROAMATINE) 20 mg ORAL PRN DIALYSIS [START ON 10/18/2024] Darbepoetin [place]ito In Polysorbat 60 mcg injection (ARANESP) 60 mcg SUBCUTANEOUS q MON B Complex-Vitamin C-Folic Acid 1 tablet tab(s) (JOHNSON-VIT) 1 tablet ORAL DAILY warfarin 5 mg tab(s) (COUMADIN) 5 mg ORAL DAILY - WARFARIN [START ON 10/16/2024] cinacalcet 60 mg tab(s) (SENSIPAR) 60 mg ORAL DAILY oxyCODONE IR 10 mg tab(s) (ROXICODONE) 10 mg ORAL q 4 H PRN HYDROmorphone 0.5 mg injection (DILAUDID) 0.5 mg INTRAVENOUS DAILY PRN HYDROmorphone 1 mg injection (DILAUDID) 1 mg INTRAVENOUS ONCE iv contrast (radiology procedure) INTRAVENOUS DIRECTED PRN Objective PHYSICAL EXAM: BP 142/66 Pulse 86 Temp (Src) 98.2 (Oral) Resp 18 Ht 5' 9.685 (1.77m) Wt 249 lb 1.9 oz (113.0kg) SpO2 98% BMI 36.07 kg/(m2). O2 Therapy: Room Air General: Distressed due to pain HEENT:oral cavity moist,no thrush. Heart:Normal S1,S2.No murmur.No JVD Lungs:Good bilateral air entry.No wheezing or crackles. Right IJ tunneled single-lumen catheter noted. Abdomen:Soft,non-distended and non tender.No organomegaly.Normal bowel sounds. Extremities:No edema in lower extremities. Left femoral vein tunneled dialysis catheter noted. Lines, Drains, and Airways Line Duration Central Line Single Lumen Tunneled Right Neck -- days Dialysis / Apheresis Double Lumen 10/05/24 External Facility Tunneled Left Femoral 10 days Peripheral 10/12/24 0530 [facility] Short Right Forearm 20 Gauge 3 days Peripheral 10/12/24 0951 Left Forearm 22 Gauge 3 days DATA: Diagnostic tests reviewed for today's visit: Most recent labs Most recent imaging Assessment/Plan Problem List Assessment AND Plan Dialysis patient ([facility]) ESRD (end stage renal disease) on dialysis ([facility]) HTN (hypertension) YEIMY (obstructive sleep apnea) 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 Personal history of DVT (deep vein thrombosis) PAF (paroxysmal atrial fibrillation) ([facility]) History of stroke Hypotension, chronic Chronic pain syndrome Anemia due to stage 5 chronic kidney disease, not on chronic dialysis ([facility]) ([facility]) Status post Maze operation for atrial fibrillation Skin ulcer, limited to breakdown of skin ([facility]) SVC syndrome Generalized weakness Impaired functional mobility, balance, gait, and endurance HOSPITAL COURSE: Elia Weston is a 44 year old male with h/o atrial fibrillation and severe mitral stenosis s/p mitral valve replacement with On-x valve, Maze procedure and RADHA clip on 08/21/2021, currently on Coumadin, ESRD on IHD via left femoral vein TDC on [facility] Najma ), 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 He also expressed a poor pain control on oxycodone. Patient follows with pain management as outpatient for pain associated with chest and abdominal wounds. He currently takes oxycodone 10 mg every 8 hours. Denied fevers or foul-smelling discharge from both wounds. Receiving wound care at home. Assessment/plan: 1. Chest and abdominal wounds: Chest ulcerations started few months ago but abdominal wall ulcerations are chronic which have been bothering him for few years, at least 2022. Abdominal and chest wall wounds are presumed to be due to skin breakdown with underlying abdominal wall varices which developed due to central venous stenosis and dilatation of inferior epigastric vein.Patient had several admissions to outside hospitals in last 2 years with infection of abdominal wounds. He also has history of hemorrhagic shock due to bleeding from abdominal wall varices. CTA abdomen and chest in past showed extensive body wall collaterals. Noted patient underwent biopsy of right lower back wound on 06/27/2023 which showed fibrosis and vascular ectasia. ESRD patients are at risk of calciphylaxis which are painful lesions, typically start as painful lumps but above biopsy results are not consistent with calciphylaxis. Also imaging studies have confirmed extensive collaterals in abdominal and chest ramirez. Dermatology evaluated patient and performed a biopsy of chest ulcer. Increased oxycodone to 10 mg every 4 hours as needed and added IV Dilaudid 0.5 mg once daily as needed prior to dressing changes. Appreciate ID recommendations. Observing off antibiotics. Wound care and plastic surgery evaluated-no indication for surgical intervention. Blood cultures from 10/12-no growth. 2. Atrial fibrillation and severe mitral stenosis s/p mitral valve replacement with On-x valve, Maze procedure and RADHA clip on 08/21/2021. EKG on admission-normal sinus rhythm. Patient said he was compliant with Coumadin but INR was 1.2 on admission. Currently on heparin gtt + Coumadin 5 mg daily.INR 1.4. PTT therapeutic 3. ESRD on hemodialysis via left femoral vein TDC on [facility] 4. 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 Nephrology helping with dialysis needs. Discussed with patient's regarding right IJ tunneled single-lumen central line. Apparently it was placed at several months ago with intention to place stent in one of the veins in chest but apparently that radiologist has moved out of and patient was never called. Consulted IR, after discussing current situation, ordered CTA chest/abdomen/pelvis and further plan will be determined by IR physician based on imaging findings. IR recommended not to remove right IJ and lorena catheter pending further evaluation I discussed with patient and his risk of leaving central line without being used causing bacteremia. Chronic problems include 5. Anemia of ESRD -Hb at baseline(8.0-8.5) 6. GERD -continue pantoprazole 7. Obesity 8. YEIMY on CPAP 9. Secondary hyperparathyroidism -continue calcitriol, Cinacalcet, sevelamer Dr.Vitaliy Briggs will assume care of my patient starting tomorrow, 10/16/2024 at 8 AM Medication and Non-Pharmacologic VTE Prophylaxis/Anticoagulants Anticoagulant AND Antiplatelet Medications (From admission, onward) Start Dose Route Frequency Last Action Ordered Stop 10/14/24 1014 warfarin 5 mg tab(s) (COUMADIN) 5 mg ORAL DAILY - WARFARIN Given, 10/15 1707 10/14/24 1015 -- 10/12/24 0800 heparin iv infusion 25,000 units in NaCl 0.45% 250 mL STANDARD NOMOGRAM (Heparin Infusion + Bolus for Subtherapeutic PTTAC) 0-30 mL/hr Placed in And Linked Group 0-3,000 Units/hr INTRAVENOUS CONTINUOUS Rate/Dose Calculated - Heparin, 10/15 1422 10/12/24 0740 -- 10/12/24 1111 activity - mobilize patient (nj,ms) VTE Prophylaxis: VTE prophylaxis appropriate Disposition: To be determined Plan of care discussed with Provider, RN, Patient SIGNATURE: Paco Garduno MD PATIENT NAME: Elia Weston DATE: October 15, 2024 TIME: 11:40 am CASE MANAGEM Observed: 10/15/2024 4:23 PM Status: [facility]PLETED [id number] Author: EILEEN PERALTA RN Service: Care Management Author Type: Registered Nurse Type: Care Mgt Progress Note Filed: 10/15/2024 16:27 Note Text: CARE MANAGEMENT PROGRESS NOTE NO WEEKEND DISCHARGE SERVICE DATE: 10/15/2024 SERVICE TIME: 4:23 PM LOS: 3 days Needs Prior to Discharge: To Be Determined;Accepting Facility;Bed Availability;Insurance Authorization;Discharge Transportation;Wound Care [place] of Choice Given: Yes Level of Care Discussed: Long-Term Facility Provider List: Long-Term Facility Provider list within the patient's requested geographic area shared with the patient/family: Yes of zip code: (Per request of patient, search in this local area) Pending medical stability. PMANDR recommending SNF. Patient in agreement. Accepting SNF list provided, [facility] and [facility]. Patient to consider FOC. Will need in authorization. CM to follow. SIGNATURE: Eileen Peralta RN PATIENT NAME: Elia Weston DATE: October 15, 2024 TIME: 4:23 PM THERAPY NT Observed: 10/15/2024 3:52 PM Status: COMPLETED Source: [facility] ID: [id number] Author: RENÉE MARTINES, PT, DPT Service: Physical Therapy Author Type: Physical Therapist Type: Therapy (PT/OT/Speech/Resp) Filed: 10/15/2024 15:57 Note Text: Physical Therapy Treatment Summary SERVICE DATE: 10/15/2024 SERVICE TIME: 1508 to 1552 ROOM: [place] [address] PT 6 Clicks Score: 18 DISCHARGE RECOMMENDATIONS Home PT, however, patient requesting short stay at rehab facility at discharge for rehab and wound care ASSESSMENT Response to Therapy Interventions: Good Participation in Activities, On-Track to Achieve Discharge Goals PRECAUTIONS Fall Risk CURRENT HOSPITAL COURSE presenting with uncontrolled pain from chest and abdominal wounds. 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 IND ADLs although he reports that bathing and dressing has been painful and time-consuming. Has been sleeping in recliner 2/2 to pain. Endorses one fall ~1 week ago from LOB. Drives. SUBJECTIVE Patient pleasant and agreeable to PT. THERAPY DIAGNOSIS Reduced mobility-other TREATMENT INTERVENTIONS Gait Training (13315), Therapeutic Activity (05358), Therapeutic Exercise (28165) Timed Code Treatment (minutes): 40 Skilled Treatment Time (minutes): 44 TRAINING AND EDUCATION PROVIDED Anatomy and Impact on Deficits, Bed Mobility, Benefits of In-Hospital Mobility, Discharge Planning, Exercise Program, Expected Functional Level, Gait Pattern, Reduction of Deviations, Patient Exercise/Therapy Program Support Needs, Role of Physical Therapy, Treatment Protocol, Transfers, Pain Neuroscience THERAPEUTIC SKILLS USED Activity Dosing, Assessment of Tolerance Including Vitals Response to Activity, Cues for Sequencing/Proper Technique for Activity, Cuing Verbal, Movement Facilitation, Physical Assist, Postural Alignment Correction, Teach-Back for Education, Cuing Tactile FUNCTIONAL STATUS Bed Mobility Supine To Sit: Minimal Assistance Transfers Sit To Stand: Stand By Assistance Stand To Sit: Stand By Assistance Bed to Chair Stand By Assistance Bed To Chair Transfer Type: Stepping Bed To Chair Transfer Equipment: (IV pole) Gait Contact Guard Assistance (progressing to SBA) Gait Device: IV Pole General Deviations/Observations: Magali decreased, Step length decreased, Lateral sway increased, Wide base of support Gait Distance (feet): 80 Stairs GOALS Patient will demonstrate progress to optimize functional mobility, maximize activity tolerance and endurance to maximize function upon discharge. Rehab Potential: Good PLAN PT Frequency: 4 Times Per Week (2) Treatment Interventions: Education, Energy Conservation Training, Functional Mobility Training, Strengthening, Balance Training, Neuromuscular Re-education Plan for Next Visit: Gait Training SIGNATURE: Renée Martines, PT, DPT PATIENT NAME: Elia Weston DATE: October 15, 2024 TIME: 3:52 PM SURGICAL PATHOLOGY Collected: 2:17 PM Status: F Source: [facility] Comment: Specimen Type : TISSUE SPECIMEN Ordering Facility: [facility] Address: [address] [place] [address] TYPE CODE TESTS RESULT OUT OF RANGE REFERENCE UNITS PATHOLOGY [id number] CASE REPORT Result Comment: Surgical Pat hology Report Case: [id number] Authorizing Provider: Paco Garduno MD Collected: 10/15/2024 02:17 PM Ordering Location: [place] [address] Received: 10/15/2024 04:57 PM Pathologist: Jarvis Saucedo MD, PhD Specimen: Skin, Punch Biopsy, A. chest, r/o chronic ischemia-induced ulceration vs infection vs less likely PG vs calci PATHOLOGY [id number] FINAL DIAGNOSIS Result Comment: A. Skin, herminio st, punch biopsy: - Dermal fibrosis and reactive vascular proliferation, see comment. APF/dkm 10/18/2024 OLOGY [id number] DIAGNOSIS COMMENT Result Comment: Histologic s ections display a basket-weave to compact orthokeratotic stratum corneum with focal parakeratosis overlying a markedly acanthotic and mildly spongiotic epidermis. Within the dermis, there is a superficial and deep interstitial vascular and histiocytic proliferation with collagen fibrosis and elastic fiber disarray. There is a scant perivascular mixed infiltrate including lymphocytes, histiocytes, and neutrophils. Eosinophils are not readily identified. To further evaluate this specimen, immunohistochemical and special stains were performed and compared to appropriate controls. Gram, GMS, and AFB-Christiana stains are negative for evidence of infectious organisms. A Von Kossa stain is negative for evidence of intraluminal or dermal calcium deposition. In order to further evaluate the vascular proliferation, immunohistochemical staining is performed at the [facility] on block A1 with appropriate controls. Stains for CD31 and ERG highlight the vascular endothelial cells, showing that they are mostly small and thin-walled without significant nuclear enlargement or multilayering. The clinical history and photographs are reviewed. Overall, these features are those of dermal fibrosis and a reactive vascular proliferation. These findings could be consistent with reactive ischemic changes in the correct clinical context. Features of pyoderma gangrenosum calciphylaxis are not identified, although the subcutaneous adipose tissue is minimally sampled. Clinical correlation remains essential. Laboratory Developed Test (LDT) Disclaimer: Performance characteristics of immunohistochemical, immunofluorescent and chromogenic in-situ hybridization tests have been determined by the performing laboratory within [facility]???s [facility] Pathology and Laboratory Medicine Department ([facility], [facility], [facility], [facility], [facility], [facility], or [facility]) in a manner consistent with CLIA requirements. One or more of these tests have not been cleared or approved by the FDA. RT-PLM is regulated under CLIA as qualified to perform high-complexity testing. These tests are used for clinical purposes. They should not be regarded as investigational or for research. Positive and negative controls stain appropriately. PATHOLOGY [id number] GROSS DESCRIPTION Result Comment: A. Skin, Pun ch Biopsy Received in formalin is a cylindrical segment of skin and subcutaneous tissue measuring 0.4 x 0.4 x 0.4 cm. On the skin surface there is a 0.4 cm, echeverria-white to brown, slightly elevated and irregularly shaped area. The specimen is bisected. Totally submitted in one cassette. [facility] October 15, 2024 5:57 PM Gross examination performed at [facility], [address] [place] [address] PATHOLOGY CDX2 CLINICAL HISTORY Hx of ulcerations with prior bx 2022 [id number] PATHOLOGY [facility]AB FINAL PERFORMING LAB Result Comment: Diagnostic i nterpretation performed at: [facility], [address] [place] [address] CLIA# [id number] Materials Research Engineer: Bud Grimm MD Performed By: #### S #### [facility] CLIA [id number] [address] [place] [address] [place] BACTERIA TISS CULT Observed: 10/15/2024 2:17 PM Status: F Source: [facility] CULTURE, TISSUE: No growth GRAM STAIN: No organisms seen No Polymorphonuclear Leukocytes Performed By: #### 03675-1 # ### [facility] CLIA [id number] [address] [place] [address] [place] #### 56246-7, 73257-1, 635-3 #### [facility] CLIA [id number] [address] [place] [address] [place] BACTERIA SPEC ANAEROBE CULT Observed: 10/15/2024 2:17 PM Status: F Source: [facility] CULTURE, ANAEROBE: Negative for anaerobes. Performed By: #### 22806-7 # ### [facility] CLIA [id number] [address] [place] [address] [place] #### 79657-7, 36268-5, 635-3 #### [facility] CLIA [id number] [address] [place] [address] [place] MICROORGANISM SPEC CULT Observed: 2024 2:17 PM Status: F Source: [facility] CULTURE, FUNGAL: No Fungus isolated after 28 days FUNGAL SMEAR: No fungus seen Performed By: #### 06784-8 # ### [facility] CLIA [id number] [address] [place] [address] [place] #### 09358-0, 52998-5, 635-3 #### [facility] CLIA [id number] [address] [place] [address] [place] MICROORGANISM SPEC CULT Observed: 2024 2:17 PM Status: F Source: [facility] CULTURE, AFB: No Acid Fast Bacilli isolated after 42 days AFB STAIN: No acid fast bacilli seen by fluorochrome stain Performed By: #### 04419-5 # ### [facility] CLIA [id number] [address] [place] [address] [place] #### 06565-8, 77325-0, 635-3 #### [facility] CLIA [id number] [address] [place] [address] [place] PTT, ANTICOAGULANT THERAPY Collected: 0 10/15/2024 1:35 PM Status: F Source: [facility] Order Comment: Specimen Type : BLOOD SPECIMEN Ordering Facility: [facility] Address: [address] [place] [address] TYPE CODE TESTS RESULT OUT OF RANGE REFERENCE UNITS LAB 12183-5(LOINC) aPTT PPP 78.9 High 23.0-32.4 sec Performed By: #### PTTAC ### # [facility] CLIA [id number] [address] [place] [address] [place] CONSULT PROG Observed: 10/15/2024 11:30 AM Status: COMPLETED Source: [facility] HNO ID: [id number] Author: CAMILO NORTON PA-C Service: Nephrology Author Type: Physician Teacher Tutor Type: Consult Progress Note Filed: 10/15/2024 11:33 Note Text: Department of Kidney Medicine Medical Specialties [place] [facility] NEPHROLOGY CONSULT SERVICE PROGRESS NOTE INTERVAL HISTORY: - IR consulted for opinoin on SVC syndrome, Lorena to remain in place - seen on HD today 4.25hr UF up to 4L tolerating well - derm following with punch bx likely later today heparin, Last Rate: 1,900 Units/hr (10/15/24 0645) MEDICATIONS: Current Facility-Administered Medications Medication Dose Route Frequency NaCl 0.9% iv flush bag 20 mL INTRAVENOUS PRN dextrose 15 gram/32 mL 15 g (TRUEPLUS) 15 g ORAL PRN Or glucagon 1 mg injection 1 mg INTRAMUSCULAR PRN Or dextrose 10% iv bolus 12.5 g INTRAVENOUS PRN heparin iv infusion 25,000 units in NaCl 0.45% 250 mL STANDARD NOMOGRAM 0-3,000 Units/hr INTRAVENOUS CONTINUOUS And heparin RATE CHANGE bolus 1,000-10,000 Units for subtherapeutic PTTAC results 1,000-10,000 Units INTRAVENOUS PRN midodrine 20 mg tab(s) (PROAMATINE) 20 mg ORAL q 8 H polyethylene glycol 3350 17 g packet 17 g ORAL DAILY pantoprazole DR 40 mg tab(s) (PROTONIX) 40 mg ORAL DAILY acetaminophen 650 mg tab(s) (TYLENOL) 650 mg ORAL q 6 H PRN sevelamer carbonate 2,400 mg tab(s) (RENVELA) 2,400 mg ORAL TID w MEALS melatonin 9 mg tab(s) 9 mg ORAL DAILY (8 PM) calcitriol 1.5 mcg cap(s) (ROCALTROL) 1.5 mcg ORAL MO-WE- midodrine 20 mg tab(s) (PROAMATINE) 20 mg ORAL PRN DIALYSIS [START ON 10/18/2024] Darbepoetin [place] In Polysorbat 60 mcg injection (ARANESP) 60 mcg SUBCUTANEOUS q MON B Complex-Vitamin C-Folic Acid 1 tablet tab(s) (JOHNSON-VIT) 1 tablet ORAL DAILY warfarin 5 mg tab(s) (COUMADIN) 5 mg ORAL DAILY - WARFARIN [START ON 10/16/2024] cinacalcet 60 mg tab(s) (SENSIPAR) 60 mg ORAL DAILY oxyCODONE IR 10 mg tab(s) (ROXICODONE) 10 mg ORAL q 4 H PRN HYDROmorphone 0.5 mg injection (DILAUDID) 0.5 mg INTRAVENOUS DAILY PRN iv contrast (radiology procedure) INTRAVENOUS DIRECTED PRN ALLERGIES: Gabapentin and Trazodone PHYSICAL EXAM: BP 136/75 Pulse 80 Temp 36.6 ?C (97.9 ?F) (Oral) Resp 20 Ht 177 cm (5' 9.69) Wt 113 kg (249 lb 1.9 oz) SpO2 99% BMI 36.07 kg/m? No intake or output data in the 24 hours ending 10/15/24 1130 GENERAL: adult male, alert, in no acute distress, cooperative, lying in bed SKIN: Skin color, texture, turgor normal. No rashes or lesions. HEENT: normocephalic, atraumatic NECK: no JVD, masses or bruits LUNGS: clear to auscultation. Good diaphragmatic excursion and normal respiratory effort. CARDIAC: RRR S1S2 ABDOMEN: soft, non-tender, non-distended. Normal bowel sounds. GENITOURINARY: no Call catheter EXTREMITIES:++BLE edema, no joint swelling NEURO: AOx3, normal speech, muscle strength grossly intact PSYCH: normal judgement and insight ACCESS: LLE TDC Lines, Drains, and Airways Line Duration Central Line Single Lumen Tunneled Right Neck -- days Dialysis / Apheresis Double Lumen 10/05/24 External Facility Tunneled Left Femoral 10 days Peripheral 10/12/24 0530 [facility] Short Right Forearm 20 Gauge 3 days Peripheral 10/12/24 0951 Left Forearm 22 Gauge 3 days Labs: Recent Labs 10/15/24 0431 10/14/24 2246 10/14/24 0657 10/13/24 0751 10/13/24 0352 WBC 4.99 -- 5.28 -- 5.25 HB 8.2* -- 8.3* -- 8.0* HCT 27.0* -- 27.9* -- 26.0* PLT 238 -- 262 -- 270 INR 1.4* -- 1.3 -- -- APTT >139.0* 75.4* 75.8* < > -- NA 137 -- 137 -- 139 K 4.6 -- 4.7 -- 4.7 CHLOR 92* -- 93* -- 95* CO2 28 -- 26 -- 26 ANION 17* -- 18* -- 18* BUN 27* -- 20 -- 34* CREAT 8.02* -- 6.22* -- 7.48* GLUC 84 -- 75 -- 111* CA 8.4* -- 8.9 -- 8.7 < > = values in this interval not displayed. Recent Labs 10/12/24 1747 10/12/24 1404 BUNPR -- 69* BUNPO 24 -- ASSESSMENT: 44 year old male with Pmhx of Afib, hx MVR on coumadin, ESRD on HD MWF, hyperparathyroidism, HTN, hx of SVC syndrome, HLD, obesity and YEIMY presenting with complaint of painful chronic chest wound and missed dialysis. He was recently admitted for a dislodged catheter and had femoral TDC 50cm replacement 10/07/24. His last HD was Friday. Admitting labs notable for hyperK and by wt is ~12kg over dry weight. ESRD Hx First HD: 2005 Unit: [facility] Configuration Release Manager: Dr. Melendez Days: EDW: 114kg Access: L Fem TDC SHPT: rocaltrol 1.5mcg TIW, sensipar 60mg daily, PTH 1500 Heparin: 10,000u bolus 2. Electrolytes: hyperK 3. Volume status: hypervolemic 4. Acid-base: AGMA 5. Ca/P/Pth/Bone mineral disease: - Sevelamer with meals. Sensipar daily and Calcitriol on dialysis days -previous punch bx in 2022 was not consistent with calciphylaxis 6. Anemia of CKD below goal, high ferritin PLAN: - HD today 4.25hr F250, Qb400, UF 3-4L - next session Friday (MWF) - EDW 114kg - ordered aranesp for friday - nephrocaps - renvela with meals Consent for DRYWALL SANDER: ESRD Camilo Norton PA-C Department of Kidney Medicine [facility] October 15, 2024 11:30 AM PAGER # [phone] Disclosures: Parts of the current progress note may have been copied from a previous note. FOR AFTER HOUR CONCERNS BETWEEN 5PM - 7AM CONTACT ON-CALL NEPHROLOGY FELLOW [phone] CONSULT Observed: 10/15/2024 9:56 AM Status: COMPLETED Source: [facility] HNO ID: [id number] Author: KERRIE BIGGS APRN.CNP Service: Interventional Radiology Author Type: Nurse Practitioner Type: Consults Filed: 10/15/2024 10:26 Note Text: INTERVENTIONAL RADIOLOGY SERVICE INPATIENT CONSULT NOTE SERVICE DATE: 10/15/2024 SERVICE TIME: 1000 REASON FOR CONSULT: SVC syndrome REQUESTING PHYSICIAN/TEAM: Paco Garduno MD Consultation requested by Dr. Paco Garduno MD for an opinion regarding SVC syndrome. Final recommendations will be communicated back to the requesting physician by way of shared Medical record or letter to requesting physician via US mail. Subjective Mr. Weston is a 44 year old male with a PMH significant for AFib, chronic anemia, mechanical mitral valve replacement (on Coumadin), ESRD on iHD MWF via left femoral vein TDC (placed by CC IR ), HLD, HTN, obesity, secondary hyperparathyroidism, 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 He presented ED with complaints of worsening chronic pain related to wounds. Chest, abdomen, and back wounds have been present for more than 3 years. While admitted, it was recommended that RIJ Lorena catheter be removed since it was not being used. Patient reports RIJ Lorena catheter placed at 06/15/2024 as the first part of a [address] venous stents. The goal was to improve circulation to aid in healing of his chronic wounds. Unfortunately, he was not contacted to arrange the 2nd part of the procedure at d/t his vascular physician leaving . Patient denies history of associated symptoms including SOB, difficulty breathing, difficulty swallowing, dizziness, lightheadedness, HAs, neck/arm/facial swelling, visual changes, and vocal hoarseness. He endorses severe pain associated with chest, back, and abdominal wounds. IR team is consulted SVC syndrome treatment. Bleeding disorders/ coagulopathy: No Anticoagulation medications: Yes; Coumadin PAST MEDICAL HISTORY Diagnosis Date Anemia of chronic disorder Anuria Atrial fibrillation (HCC) 12/02/2018 on Coumadin and Amiodarone BMI 40.0-44.9, adult (HCC) ESRD (end stage renal disease) on dialysis (HCC) 2005 ESRD from HTN Dialysis M,W,F [facility] [phone] Essential hypertension, benign 1998 EKG 09/30 NL. Hearing loss of both ears History of mitral valve stenosis Hx of bacterial endocarditis Hyperparathyroidism due to end stage renal disease on dialysis (HCC) Kidney disease 2005 ESRD due to HTN; on IHD since 2005 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 and scoliosis h/o this 3 y. Dx by xray. Mechanical complication of arteriovenous fistula surgically created (HCC) Mechanical complication of dialysis catheter (HCC) Mitral valve disease Morbid obesity (HCC) MS (mitral stenosis) 10/08/2018 Transesophageal US YEIMY on CPAP Paroxysmal atrial fibrillation (HCC) PE (pulmonary thromboembolism) (HCC) Pelvic mass Pseudoaneurysm of AV hemodialysis fistula (HCC) Wound of right side of back from friction/rubbing of jacket, goes to wound care center in [place] PAST SURGICAL HISTORY Procedure Laterality Date ARTERIOVENOUS FISTULA Left 08/29/2010 CAPSULE ENDOSCOPY 07/01/2023 CARDIOVERSION-ELECTIVE N/A 12/03/2018 200 joules synchronized - successful COLONOSCOPY 07/01/2023 EGD 06/27/2023 HERNIA REPAIR HX PAST SURGICAL HISTORY OF 08/29/2010 dialysis fistula left arm PAST SURGICAL HISTORY OF Right 03/2019 Right leg femoral vein to superficial femoral artery loop graft mid thigh REPAIR CLEFT LIP RMVL LEANN CVC W/O SUBQ PORT/TOBACCO PREVENTION HEALTH EDUCATOR 01/17/2013 SHX CARDIAC RADIOFREQUENCY ABLATION 08/21/2021 s/p Maze procedure SHX MITRAL VALVE REPLACEMENT 08/21/2021 FAMILY HISTORY Adopted: Yes Problem Relation Age of Onset None Mother None Father Aneurysm No Family History Social History Tobacco Use Smoking status: Never Smokeless tobacco: Never Vaping Use Vaping status: Never Used Substance Use Topics Alcohol use: No Drug use: No melatonin 10 mg cap, Take 1 capsule by mouth daily at bedtime., Disp: , Rfl: Cinacalcet HCl (SENSIPAR) 60 mg tablet, Take 120 mg by mouth once daily., Disp: , Rfl: warfarin (COUMADIN) 5 mg tablet, Take 1 tablet by mouth once daily., Disp: 60 tablet, Rfl: 0 polyethylene glycol 3350 (MIRALAX) 17 gram packet, Take 1 Packet by mouth once daily. Dissolve dose in 4 - 8 ounces of liquid and take as directed., Disp: 60 Each, Rfl: 0 oxyCODONE IR (ROXICODONE) 10 mg tab, Take 10 mg by mouth every 8 hours as needed for pain., Disp: , Rfl: , 10/11/2024 VELPHORO 500 mg chew, Crush or chew and swallow 2 tablets 3 times a day with meals, Disp: , Rfl: B Complex-Vitamin C-Folic Acid (JOHNSON-BRENDA) 0.8 mg tab, Take 1 tablet by mouth once daily., Disp: , Rfl: , 10/11/2024 midodrine (PROAMATINE) 10 mg tablet, Take 2 tablets by mouth every 8 hours., Disp: 180 tablet, Rfl: 11 MEDICATION, NON-DATABASE, Apply 1 Each to affected area once daily. Self adhesive 5x9 inch abd pad/dressing, Disp: 30 Each, Rfl: 2, Unknown WALKER ROLLATOR SEAT WITH 6 WHEELS - RED, ., Disp: 1 Each, Rfl: 1, Unknown Blood Pressure Test Kit-Large (QUICK RESPONSE BP MONITOR), 1 Each once daily., Disp: 1 Each, Rfl: 0, Unknown Current Facility-Administered Medications Medication Dose Route Frequency NaCl 0.9% iv flush bag 20 mL INTRAVENOUS PRN dextrose 15 gram/32 mL 15 g (TRUEPLUS) 15 g ORAL PRN Or glucagon 1 mg injection 1 mg INTRAMUSCULAR PRN Or dextrose 10% iv bolus 12.5 g INTRAVENOUS PRN heparin iv infusion 25,000 units in NaCl 0.45% 250 mL STANDARD NOMOGRAM 0-3,000 Units/hr INTRAVENOUS CONTINUOUS And heparin RATE CHANGE bolus 1,000-10,000 Units for subtherapeutic PTTAC results 1,000-10,000 Units INTRAVENOUS PRN midodrine 20 mg tab(s) (PROAMATINE) 20 mg ORAL q 8 H polyethylene glycol 3350 17 g packet 17 g ORAL DAILY pantop[address]ole [address] 40 mg tab(s) (PROTONIX) 40 mg ORAL DAILY acetaminophen 650 mg tab(s) (TYLENOL) 650 mg ORAL q 6 H PRN sevelamer carbonate 2,400 mg tab(s) (RENVELA) 2,400 mg ORAL TID w MEALS melatonin 9 mg tab(s) 9 mg ORAL DAILY (8 PM) calcitriol 1.5 mcg cap(s) (ROCALTROL) 1.5 mcg ORAL MO-WE- midodrine 20 mg tab(s) (PROAMATINE) 20 mg ORAL PRN DIALYSIS [START ON 10/18/2024] Darbepoetin [place] In Polysorbat 60 mcg injection (ARANESP) 60 mcg SUBCUTANEOUS q MON B Complex-Vitamin C-Folic Acid 1 tablet tab(s) (JOHNSON-VIT) 1 tablet ORAL DAILY warfarin 5 mg tab(s) (COUMADIN) 5 mg ORAL DAILY - WARFARIN [START ON 10/16/2024] cinacalcet 60 mg tab(s) (SENSIPAR) 60 mg ORAL DAILY oxyCODONE IR 10 mg tab(s) (ROXICODONE) 10 mg ORAL q 4 H PRN HYDROmorphone 0.5 mg injection (DILAUDID) 0.5 mg INTRAVENOUS DAILY PRN Allergies As of Date: 10/11/2024 Allergen Noted Reaction GABAPENTIN 08/09/2021 Unknown and Other: See Comments TRAZODONE 10/11/2024 Other: See Comments Fully Assessed 10/11/2024 REVIEW OF SYSTEMS: See HPI: Remaining ROS reviewed and negative unless otherwise noted in HPI. Objective PHYSICAL EXAM: BP 136/75 Pulse 80 Temp (Src) 97.9 (Oral) Resp 20 Ht 5' 9.685 (1.77m) Wt 249 lb 1.9 oz (113.0kg) SpO2 99% BMI 36.07 kg/(m2). O2 Therapy: Room Air GENERAL: Alert, no distress, cooperative. NECK: Supple. CHEST: B/L wounds with DSG C/D/I. Wounds not assessed (Patient refused dressing removal.) LUNGS: Lungs clear to auscultation. CARDIAC: RRR. ABDOMEN: Soft, non-tender, BS present. Wounds with DSG C/D/I noted. Left-sided wounds not assessed (Patient refused dressing removal.) EXTREMITIES: Extremities normal. AVG RLE nonfunctioning. B/L UE fistulas nonfunctioning. NEURO: Sensation grossly intact. PULSES: 2+ posterial tibia. DATA: Diagnostic tests reviewed for today's visit: Most recent labs and imaging results. Recent imaging results: OSH CTA reviewed by Dr. De Anda. Laboratory: Recent Labs 10/15/24 0431 10/14/24 2246 10/14/24 0657 10/13/24 0751 10/13/24 0352 WBC 4.99 -- 5.28 -- 5.25 HB 8.2* -- 8.3* -- 8.0* HCT 27.0* -- 27.9* -- 26.0* PLT 238 -- 262 -- 270 INR 1.4* -- 1.3 -- -- APTT >139.0* 75.4* 75.8* < > -- NA 137 -- 137 -- 139 K 4.6 -- 4.7 -- 4.7 CHLOR 92* -- 93* -- 95* CO2 28 -- 26 -- 26 BUN 27* -- 20 -- 34* CREAT 8.02* -- 6.22* -- 7.48* GLUC 84 -- 75 -- 111* CA 8.4* -- 8.9 -- 8.7 < > = values in this interval not displayed. CMP: Glucose 84 10/15/2024 BUN 27 10/15/2024 Creatinine 8.02 10/15/2024 Sodium 137 10/15/2024 Potassium 4.6 10/15/2024 Chloride 92 10/15/2024 CO2 Content, Venous 28 10/15/2024 Protein, Total 8.5 10/12/2024 Albumin 3.9 10/12/2024 Calcium 8.4 10/15/2024 Alkaline Phosphatase 179 10/12/2024 Bilirubin, Total 0.3 10/12/2024 AST 16 10/12/2024 ALT 13 10/12/2024 PT/INR: 1.4 10/15/2024 Impression/Recommendations 44 year old male with PMH significant for AFib, chronic anemia, mechanical mitral valve replacement (on Coumadin), ESRD on iHD MWF via left femoral vein TDC (placed by [facility] IR ), HLD, HTN, obesity, secondary hyperparathyroidism, 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 IR team consulted regarding treatment for SVC syndrome. Plan: - CT venogram chest/abdomen/pelvis with IVCON. Place order for CTA chest, abdomen, and pelvis with IVCON. In comment section, state CT venogram. - IR plan TBD pending CT venogram results. - Do not remove Lorena catheter. Lorena catheter is maintaining vascular access. Case reviewed by: Dr. De Anda. Thank you for the opportunity to participate in the care of this patient. The IR team acknowledges your request and will address it as soon as possible. Please call [phone] if we can be of immediate assistance. For after hour concerns between 4:00PM-7:00AM contact on-call IR fellow/resident, pager [phone]. SIGNATURE: Kerrie Biggs APRN.CNP PATIENT NAME: Elia Weston DATE: October 15, 2024 TIME: 9:57 AM CONSULT PROG Observed: 10/15/2024 9:42 AM Status: COMPLETED Source: [facility] HNO ID: [id number] Author: AVIS LUNDY MD Service: Dermatology Author Type: Physician Type: Consult Progress Note Filed: 10/15/2024 15:41 Note Text: DERMATOLOGY HOSPITAL CONSULT SERVICE PROGRESS NOTE Interval Events - Refused to have central line removed by IR yesterday afternoon - Observing off antibiotics - Patient agreeable to biopsy today PHYSICAL EXAM BP 136/75 Pulse 80 Temp 36.6 ?C (97.9 ?F) (Oral) Resp 20 Ht 177 cm (5' 9.69) Wt 113 kg (249 lb 1.9 oz) SpO2 99% BMI 36.07 kg/m? GEN: Age appropriate Skin examination was performed of the chest, abdomen, back and was pertinent for: - R chest with ulceration with granulation tissue at base - L mid to lower back with scattered round ulcerations with granulation tissue at base and hyperpigmented periphery - R lower back with hypopigmented scars with hyperpigmented periphery Per photo review: - L chest, R abdomen, L back with round to ovoid ulceration with white base LABORATORY TESTS: CBC: Recent Labs 10/15/24 0431 10/14/24 0657 10/13/24 0352 10/12/24 0531 WBC 4.99 5.28 5.25 6.07 HB 8.2* 8.3* 8.0* 8.4* HCT 27.0* 27.9* 26.0* 27.4* PLT 238 262 270 248 MCV 91.8 92.4 91.2 91.9 RDWCV 18.2* 18.4* 18.1* 17.8* NEUTP -- -- -- 66.2 ABSNEUT -- -- -- 4.02 LYMPHP -- -- -- 16.5 MONOP -- -- -- 10.2 EODINP -- -- -- 5.9 BMP: Recent Labs 10/15/24 0431 10/14/24 0657 10/13/24 0352 10/12/24 1013 10/12/24 0531 GLUC 84 75 111* 89 79 NA 137 137 139 137 137 K 4.6 4.7 4.7 5.5* 6.2* CHLOR 92* 93* 95* 94* 94* CO2 28 26 26 17* 19* ANION 17* 18* 18* 26* 24* BUN 27* 20 34* 72* 72* CREAT 8.02* 6.22* 7.48* 11.98* 12.12* HEPATIC: Recent Labs 10/12/24 0531 ALKPHOS 179* ALT 13 AST 16 TBILI 0.3 BIOPSY: FINAL DIAGNOSIS Skin, right lower back, punch biopsy: - Ulcer with dermal fibrosis, vascular ectasia, and reactive vascular proliferation (see comment). AF/LX/rw 06/27/2023 Diagnosis Comment Histologic sections demonstrate a focally ulcerated epidermis. The adjacent intact epidermis demonstrates reactive hyperplasia. Within the dermis, there is fibrosis and an interstitial proliferation of mononuclear cells associated with a chronic lymphohistiocytic infiltrate. Eosinophils are not readily identified. Within the mid dermis, there is a single prominently dilated vessel lined by bland-appearing endothelial cells. To further characterize the dilated vessel, immunohistochemical stains were performed on block A1 at the [facility] and compared to appropriate controls. A significant percentage of dermal interstitial cells, and endothelial cells lining the prominently dilated vessel, are positive for ERG and are negative for D2-40. Clinical photos and history are reviewed. Overall, the histologic features are those of ulcer with dermal fibrosis, vascular ectasia, and reactive vascular proliferation. These histologic features are nonspecific. In the appropriate clinical setting, an ulcer related to chronic ischemia could be considered. Histologic features suggestive of pyoderma gangrenosum are not identified. Clinical correlation is recommended. 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 Dermatology was consulted by ID for multiple ulcerations. Previous skin biopsy revealed ulcer with dermal fibrosis, vascular ectasia, and reactive vascular proliferation - overall nonspecific findings but could be related to chronic ischemia given patient's history and clinical morphology. Differential includes wounds secondary to chronic ischemic process/vasculopathy vs infectious (given the worsening pain, blood cultures NGTD). Do not favor pyoderma gangrenosum or calciphylaxis given clinical appearance however cannot be entirely ruled out. Recommend skin biopsy for CÉSAR and tissue culture for further evaluation since last biopsy over a year ago. Patient agreeable to biopsy, see procedure note below. PLAN: (Not final until signed by staff physician) - Biopsy site wound care instructions below - Follow up biopsy results - Follow up tissue cultures - Follow up blood cultures - Continue wound care with Xeroform or Vaseline gauze followed by ABD pad to ulcerations - Caution with debridement and/or skin grafting until underlying etiology determined given potential compromised vasculature - Further recommendations pending biopsy results Biopsy site care: - Leave bandage in place for 24 hours - After 24 hours, wash gently with soap and water daily - Cover with Vaseline and a bandage - If bleeding occurs at the biopsy site: hold pressure for 30 minutes without looking and recheck; if still bleeding, repeat for 20 minutes and recheck Punch biopsy to establish and confirm diagnosis. UNIVERSAL PROTOCOL / SAFETY CHECKLIST Procedure to be Performed: Punch biopsy Sign In: A Moment of CARE was completed. Personnel directly involved with the procedure wore the appropriate PPE (Personal Protective Equipment). Patient/Surrogate Stated/Verified: PATIENT VERIFIED(optional for EMERGENT procedures): Patient name, Date of , Relevant allergies, and The intended procedure Time Out Communication: Intended patient and procedure match the source documents. Consent documented and matches the intended procedure. Relevant labs, photos, and/or imaging studies have been reviewed. Correct side/site marked and visible. Sign Out: SIGN OUT (optional for EMERGENT procedures): All specimen containers correctly labeled. All instruments, equipment, possible retained foreign bodies accounted for. Taylor Lackey MD Photo taken: Yes Risks, benefits, alternatives and personnel required for punch biopsy reviewed with patient. Patient and provider agree as to site(s) to be biopsied. Patient verbalizes understanding and wishes to proceed. Site(s) prepped with alcohol and anesthetized with 1% lidocaine with epinephrine. The following was sent for histologic evaluation. CÉSAR R/O: chronic ischemic ulceration vs infectious vs PG vs calci LOC OF LESION: right chest Size of punch used: 4 mm Tissue/fungal/AFB culture: R/O infection LOC OF LESION: right chest Size of punch used: 4 mm EBL: scant Pressure held to stop bleeding Patient tolerated procedure well and without complication. Written and verbal wound care instructions provided to patient, understanding verbalized. Will follow Patient seen and discussed with attending printed circuit board assembler, Dr. Conor Lackey MD Dermatology, PGY-4 October 15, 2024 9:42 AM Please use consult pager [phone], Mon-Fri 8am-5pm. Please call adzing and boring machine operator for on-call resident/pager during all other hours. Attending Note: I evaluated the patient and personally participated in the mendoza components of this encounter. I agree with the resident/student's findings and plan as documented and have discussed the case and management of the patient's care with the resident/student. The note was annotated by me as needed to reflect my direct input. I assisted during the entirety of any procedure which was performed by the resident/fellow under my direct supervision. Signature: Avis Lundy MD Date: 10/15/2024 Time: 3:41 PM CONSULT Observed: 10/15/2024 9:17 AM Status: COMPLETED Source: [facility] HNO ID: [id number] Author: HEIDY SIMMONS APRN.CNP Service: Physical Medicine AND Rehabilitation Author Type: Nurse Practitioner Type: Consults Filed: 10/15/2024 14:11 Note Text: HOSPITAL INITIAL CONSULT: PMANDR SERVICE DATE: 10/15/2024 SERVICE TIME: 1:15 pm REASON FOR CONSULTATION: assessment of rehab service needs, PMANDR Consult Order in patient's chart: Yes, order in chart under separate note, and My final impression and recommendations will be communicated back to the requesting physician by way of the shared medical record. Subjective PATIENT'S HOME ADDRESS: [address] [place] [address] HISTORY: Elia Weston is a 44 year old male whose current [facility] admission dates to 10/12/2024. History notes that he was admitted on that date through the hospital ED. Mr. Weston is being seen at the request of Dr. Garduno, the [facility] physician of record. 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 He endorses a history of several months of skin lesions on the chest, back and abdomen. The patient reports two primary lesions on the chest, described as the most painful, with pain severity reaching up to 10+ on a scale of 0-10. Pain is not alleviated by antibiotics, which he last took more than a month ago, and only somewhat relieved by pain medications. The only other times the pain is better is when the wounds are healing which has not happened in a while.The patient denies fevers, chills, shortness of breath, cough, and abdominal pain unrelated to the wounds, diarrhea, nausea, vomiting. He endorses constipation is attributed to pain medication use. 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 In the ED, vital signs were stable. Work up was concerning for anemia with hemoglobin 8.4 (close to baseline). BUN and creatinine were elevated at 72 and 12.12 respectively.Alk phos was elevated at 179 He was hyperkalemic 6.2 (No peaked t waves on EKG) and he was acidotic with a bicarb of 19 and a gap of 24. Patient was treated with dilaudid for pain control and he received insulin and kayexalate for his hyperkalemia . He was admitted for further work up and management of his condition Patient follows with pain management as outpatient for pain associated with chest and abdominal wounds. He currently takes oxycodone 10 mg every 8 hours. Per ID Low suspicion for infection but ok to keep empiric Zosyn until all wounds can be thoroughly evaluated Per Dermatology consult-Previous skin biopsy revealed ulcer with dermal fibrosis, vascular ectasia, and reactive vascular proliferation - overall nonspecific findings but could be related to chronic ischemia given patient's history and clinical morphology. Differential includes wounds secondary to chronic ischemia vs infectious (given the worsening pain, blood cultures NGTD). Do not favor pyoderma gangrenosum or calciphylaxis given clinical appearance however cannot be entirely ruled out. Recommend skin biopsy for CÉSAR and tissue culture for further evaluation since last biopsy over a year ago. Patient will think about potential skin biopsies overnight. Per plastic surgery no acute surgical intervention for superficial wounds on chest and abdomen Prior to hospitalization, he lives with and 2 kids ages 10 and 1. No stairs to bedroom. Did not ambulate with device prior to admit. 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 CURRENT TRANSPORTATION ACCESS: Prior to admission, how did patient travel to appointments AND events outside the home? Drives PROJECTED/ ANTICIPATED MEDICATION MANAGEMENT: (Surrogate for cognition/executive/physical functioning) at discharge from this episode of care: will manage without help (may receive help picking up pills / delivery) ALLERGIES Allergen Reactions Gabapentin Unknown, Other: See Comments Trazodone Other: See Comments Fidgety Current Facility-Administered Medications Medication Dose Route Frequency NaCl 0.9% iv flush bag 20 mL INTRAVENOUS PRN dextrose 15 gram/32 mL 15 g (TRUEPLUS) 15 g ORAL PRN Or glucagon 1 mg injection 1 mg INTRAMUSCULAR PRN Or dextrose 10% iv bolus 12.5 g INTRAVENOUS PRN heparin iv infusion 25,000 units in NaCl 0.45% 250 mL STANDARD NOMOGRAM 0-3,000 Units/hr INTRAVENOUS CONTINUOUS And heparin RATE CHANGE bolus 1,000-10,000 Units for subtherapeutic PTTAC results 1,000-10,000 Units INTRAVENOUS PRN midodrine 20 mg tab(s) (PROAMATINE) 20 mg ORAL q 8 H cinacalcet 90 mg tab(s) (SENSIPAR) 90 mg ORAL DAILY polyethylene glycol 3350 17 g packet 17 g ORAL DAILY pantoprazole DR 40 mg tab(s) (PROTONIX) 40 mg ORAL DAILY acetaminophen 650 mg tab(s) (TYLENOL) 650 mg ORAL q 6 H PRN sevelamer carbonate 2,400 mg tab(s) (RENVELA) 2,400 mg ORAL TID w MEALS melatonin 9 mg tab(s) 9 mg ORAL DAILY (8 PM) calcitriol 1.5 mcg cap(s) (ROCALTROL) 1.5 mcg ORAL MO-WE- midodrine 20 mg tab(s) (PROAMATINE) 20 mg ORAL PRN DIALYSIS [START ON 10/18/2024] Darbepoetin Osito In Polysorbat 60 mcg injection (ARANESP) 60 mcg SUBCUTANEOUS q MON B Complex-Vitamin C-Folic Acid 1 tablet tab(s) (JOHNSON-VIT) 1 tablet ORAL DAILY warfarin 5 mg tab(s) (COUMADIN) 5 mg ORAL DAILY - WARFARIN oxyCODONE IR 5 mg tab(s) (ROXICODONE) 5 mg ORAL q 6 H PRN PAST MEDICAL HISTORY Diagnosis Date Anemia of chronic disorder Anuria Atrial fibrillation (HCC) 12/02/2018 on Coumadin and Amiodarone BMI 40.0-44.9, adult (HCC) ESRD (end stage renal disease) on dialysis ([facility]) 2005 ESRD from HTN Dialysis [facility] [phone] Essential hypertension, benign 1998 EKG 09/30 NL. Hearing loss of both ears History of mitral valve stenosis Hx of bacterial endocarditis Hyperparathyroidism due to end stage renal disease on dialysis (HCC) Kidney disease 2005 ESRD due to HTN; on IHD since 2005 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 and scoliosis h/o this 3 y. Dx by xray. Mechanical complication of arteriovenous fistula surgically created (HCC) Mechanical complication of dialysis catheter (HCC) Mitral valve disease Morbid obesity (HCC) MS (mitral stenosis) 10/08/2018 Transesophageal US YEIMY on CPAP Paroxysmal atrial fibrillation (HCC) PE (pulmonary thromboembolism) ([facility]) Pelvic mass Pseudoaneurysm of AV hemodialysis fistula ([facility]) Wound of right side of back from friction/rubbing of jacket, goes to wound care center in [place] PAST SURGICAL HISTORY Procedure Laterality Date ARTERIOVENOUS FISTULA Left 08/29/2010 CAPSULE ENDOSCOPY 07/01/2023 CARDIOVERSION-ELECTIVE N/A 12/03/2018 200 joules synchronized - successful COLONOSCOPY 07/01/2023 EGD 06/27/2023 HERNIA REPAIR HX PAST SURGICAL HISTORY OF 08/29/2010 dialysis fistula left arm PAST SURGICAL HISTORY OF Right 03/2019 Right leg femoral vein to superficial femoral artery loop graft mid thigh REPAIR CLEFT LIP RMVL LEANN CVC W/O SUBQ PORT/TOBACCO PREVENTION HEALTH EDUCATOR 01/17/2013 SHX CARDIAC RADIOFREQUENCY ABLATION 08/21/2021 s/p Maze procedure SHX MITRAL VALVE REPLACEMENT 08/21/2021 Social History Tobacco Use Smoking status: Never Smokeless tobacco: Never Vaping Use Vaping status: Never Used Substance Use Topics Alcohol use: No Drug use: No FAMILY HISTORY Adopted: Yes Problem Relation Age of Onset None Mother None Father Aneurysm No Family History ACTIVE PROBLEM LIST Esrd (End Stage Renal Disease) On Dialysis ([facility]) Htn (Hypertension) Obesity Epigastric Pain Mechanical Complication of Other Vascular Device, Implant, and Graft Right Knee Pain Obesity, Morbid, Bmi 40.0-49.9 ([facility]) Tendinitis of Left Shoulder Mass of Left Thigh Thigh Pain Hematuria Dialysis Patient ([facility]) Yeimy (Obstructive Sleep Apnea) Abdominal Or Pelvic Swelling, Mass, Or Lump, Right Lower Quadrant Secondary Hyperparathyroidism of Renal Origin ([facility]) Renal Osteodystrophy Hyperphosphatemia Due to Chronic Kidney Disease Groin Pain Personal History of Dvt (Deep Vein Thrombosis) Sprain of Medial Collateral Ligament of Right Knee Esrd (End Stage Renal Disease) ([facility]) Paf (Paroxysmal Atrial Fibrillation) ([facility]) A-V Fistula ([facility]) Anemia of Chronic Disease Blind Left Eye End-Stage Renal Disease On Hemodialysis ([facility]) Expressive Dysphasia History of Endocarditis Hearing Loss History of Non-St Elevation Myocardial Infarction (Nstemi) Heart Failure, Unspecified ([facility]) Iron Deficiency Anemia, Unspecified Chronic Anticoagulation Mitral Valve Disease Myocardial Infarction ([facility]) Noncompliance With Medication Regimen Paroxysmal Atrial Flutter ([facility]) Pulmonary Embolism ([facility]) Pulmonary Edema Stenosis of Other Vascular Prosthetic Devices, Implants and Grafts, Initial Encounter ([facility]) Unspecified Atherosclerosis of [place] Arteries of Extremities, Right Leg ([facility]) Vitamin D Deficiency, Unspecified Open Wound of Right Side of Back History of Stroke Hypotension, Chronic Falls Mitral Valve Stenosis, Severe Mitral Stenosis Obesity, Class II, Bmi 35-39.9 Dental Caries S/P Mvr (Mitral Valve Replacement) Clotted Renal Dialysis Av Graft ([facility]) Chb (Complete Heart Block) ([facility]) Encounter for Support and Coordination of Transition of Care Abdominal Pain Near Syncope Acute Colitis Supratherapeutic Inr Anemia of Chronic Disorder Atrial Fibrillation ([facility]) Essential Hypertension, Benign Abdominal Wall Skin Ulcer, With Unspecified Severity ([facility]) Acute Blood Loss Anemia Melena Hypotension Adjustment Disorder With Depressed Mood Hyperkalemia Hyponatremia Metabolic Acidosis Anemia of Renal Disease Skin Pain Bleeding Ulcer Mssa Bacteremia Proximal Colon Ulcer Aftercare for Long-Term (Current) Use of Antibiotics Anemia Due to Chronic Kidney Disease, On Chronic Dialysis ([facility]) Mild Protein-Calorie Malnutrition ([facility]) Acquired Hypothyroidism 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 At Risk for Alteration in Skin Integrity Based On Alex Scale Score Venous Collateral Circulation Hypothyroidism H/O Mitral Valve Replacement With Mechanical Valve Hypocalcemia Due to Chronic Kidney Disease Chronic Pain Syndrome Uremia Jugular Vein Occlusion, Bilateral ([facility]) Arteriovenous Graft Stenosis, Sequela Open Abdominal Wall Wound Anemia Due to Stage 5 Chronic Kidney Disease, Not On Chronic Dialysis ([facility]) ([facility]) Status Post Maze Operation for Atrial Fibrillation Skin Ulcer, Limited to Breakdown of Skin ([facility]) Svc Syndrome PMANDR REVIEW OF SYSTEMS: General: Weakness: yes generalized, fatigued, decreased endurance, appetite/nutrition decreased, Fevers none currently Skin: chronic chest wall and abdominal wall wounds HEENT: Vision issues: glasses, reports h/o stroke in the past that affected his right eye Hearing problems: EKWOK, no hearing aids currently but working on it Cardiovascular: Personal history of DVT (deep vein thrombosis) Pulmonary: YEIMY Musculoskeletal: Joint surgery: none, Spine disease: denies spine surgery GI: Constipation/Diarrhea: none currently, BM 10/13 Nausea/Vomiting: denies currently Genitourinary: ESRD on dialysis Psychiatric/behavioral: Depression/Anxiety:yes. Endocrine: Diabetes: denies Thyroid disease: Secondary Hyperparathyroidism Neuro: Seizures: none, Dysphagia: none, Language/cognitive impairment: none. Diet: Orders Placed This Encounter DIET RENAL Objective PHYSICAL THERAPY 6- CLICKS SCORE: PT 6 Clicks Score: 17 OCCUPATIONAL THERAPY 6- CLICKS SCORE : OT 6 Clicks Score: 17 PHYSICAL EXAM: VITAL SIGNS 24 HOUR REVIEW: Patient Vitals for the past 24 hrs: BP Temp Temp src Pulse Resp SpO2 10/15/24 0418 136/75 36.6 ?C (97.9 ?F) Oral 80 20 99 % 10/15/24 0109 118/63 36.6 ?C (97.9 ?F) Oral 87 20 100 % 10/14/24 2019 122/61 36.8 ?C (98.2 ?F) Oral 95 20 99 % 10/14/24 1657 122/58 36.7 ?C (98.1 ?F) Oral 89 20 98 % 10/14/24 1542 135/74 36.6 ?C (97.9 ?F) Oral 84 16 98 % 10/14/24 1142 127/72 36.7 ?C (98.1 ?F) Oral 95 16 99 % General: a pleasant adult male in bed in no apparent distress Skin: warm and dry; dressings to wounds HEENT: hearing intact to finger rub bilaterally Respiratory: clear anterior upper lobes Heart: RRR Vascular: no lower extremity edema Orientation was full. Affect: pleasant, cooperative Swallowing: normal handling of oral secretions. Visual page were full. (reports baseline impaired vision on right but it's pretty good today. Facial asymmetry was absent. Language assessment noted no dysarthria, normal fluency, and comprehension intact. Muscle testing notes BUE 5/5. BLE 5/5 Coordination was intact with FTN Gait: Per PT note General Deviations/Observations: Magali decreased, Step length decreased, Lateral sway increased, Wide base of support LABORATORY TESTING: I reviewed the relevant labs and imagining CBC: Recent Labs 10/15/24 0431 10/14/24 0657 10/13/24 0352 10/12/24 0531 WBC 4.99 5.28 5.25 6.07 HB 8.2* 8.3* 8.0* 8.4* HCT 27.0* 27.9* 26.0* 27.4* PLT 238 262 270 248 MCV 91.8 92.4 91.2 91.9 RDWCV 18.2* 18.4* 18.1* 17.8* NEUTP -- -- -- 66.2 ABSNEUT -- -- -- 4.02 LYMPHP -- -- -- 16.5 MONOP -- -- -- 10.2 EODINP -- -- -- 5.9 COAG: Recent Labs 10/15/24 04310/14/24 2246 10/14/24 0657 10/13/24 2313 10/13/24 1552 10/13/24 0751 10/13/24 0102 10/12/24 1501 10/12/24 0848 10/12/24 0531 APTT >139.0* 75.4* 75.8* 60.9* 47.9* 50.5* 42.2* >139.0* -- 32.8* INR 1.4* -- 1.3 -- -- -- -- -- 1.2 1.2 BMP: Recent Labs 10/15/2443010/14/24 0657 10/13/24 0352 10/12/24 1013 10/12/24 0531 GLUC 84 75 111* 89 79 NA 137 137 139 137 137 K 4.6 4.7 4.7 5.5* 6.2* CHLOR 92* 93* 95* 94* 94* CO2 28 26 26 17* 19* ANION 17* 18* 18* 26* 24* BUN 27* 20 34* 72* 72* CREAT 8.02* 6.22* 7.48* 11.98* 12.12* CHEM: Recent Labs 10/15/2443010/14/24 0657 10/13/24 0352 10/12/24 1013 10/12/24 0531 ALB -- -- -- -- 3.9 TPROT -- -- -- -- 8.5* CA 8.4* 8.9 8.7 8.6 9.0 HEPATIC: Recent Labs 10/12/24 0531 ALKPHOS 179* ALT 13 AST 16 TBILI 0.3 Impression/Recommendations PRIMARY REHABILITATION DIAGNOSIS: 44 year old male with a past medical history of Anemia of chronic disorder, Atrial fibrillation and mechanical mitral valve replacement on Coumadin, ESRD on dialysis MWF, Secondary hyperparathyroidism, HTN, 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 RECOMMENDATIONS: If patient does not progress to home, then he may benefit from inpatient rehab stay at SNF level of rehab- he prefers SNF. He reports generalized weakness, fatigue decreased endurance leading up to current admit and will benefit from continued therapy at SNF once medically stable for discharge per primary service. CM has provided list to patient. Continued Medical supervision at SNF to address: chronic chest wall and abdominal wall wounds ESRD on dialysis chronic pain HTN YEIMY h/o DVT Paf h/o stroke chronic hypotension chronic pain syndrome Risk for deep vein thrombosis on basis of immobility- daily surveillance. The patient's DVT prophylaxis is: heparin drip currently. Lines, drains and tubes plan - peripheral IV, dialysis Abnormal labs that require monitoring: bun, creatinine, potassium, hgb, hct Deficits: generalized weakness, decreased endurance, debility, impaired gait, balance, mobility, alteration in self care, fall risk, nutrition, debility, and minimal mobility level resulting in risk for venous thromboembolism SIGNATURE: Heidy Simmons APRN.FLORAL ASSOCIATE PATIENT NAME: Elia Weston DATE: October 15, 2024 TIME: 9:17 AM CONSULT Observed: 10/15/2024 9:07 AM Status: COMPLETED Source: [facility] ID: [id number] Author: BAILEY BROWN PA-C Service: Pain Management Author Type: Physician Teacher Tutor Type: Consults Filed: 10/15/2024 11:00 Note Text: CONSULT: CHRONIC PAIN MANAGEMENT SERVICE PATIENT NAME: Elia Weston DATE of SERVICE: October 15, 2024 TIME of SERVICE: 10:30 AM REASON FOR CONSULT: Suggestions for optimization of acute on chronic vascular insufficiency wounds on chest, back and abdomen while inpatient REQUESTING PROVIDER: Paco Garduno MD PCP: No primary care provider on file. ASSESSMENT: Mr. 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 PLAN: 1. Per PDMP report in [facility], Mr. Weston has been prescribed chronic opioid therapy (COT) consisting of oxycodone IR 10 mg # 90 tabs x 30 days (30 mg/day oxycodone) prescribed monthly primarily by Sagar Ojeda since at least 06/09/2023 w/ most recent Rx dispensed on 09/17/2024. Please refer to the PDMP tab in [facility] and under OARRS tab below HPI for copied/pasted report showing full detailed description of prescriptions dispensed in past 24 months. 2. Currently, Mr. Weston is ordered the following medications for pain: - acetaminophen 650 mg PO q6h PRN mild pain, fever > 38.5 C (AST: 13, ALT: 16) - oxycodone IR 10 mg PO q4h PRN severe pain - Dilaudid 0.5 mg IV once daily PRN prior to dressing changes 3. Since w/ no hepatic impairment or if not otherwise contraindicated, may consider ordering acetaminophen 1,000 mg PO q6h scheduled x 5-7 days for amelioration of acute on chronic nociceptive pain complaints. If ordering for a longer period, would then monitor LFTs to avoid hepatic injury. 4. May consider application of up to total of (3) 4% lidocaine patches to be applied AROUND painful sites (on for 12 hours/off for 12 hours) OR may instead consider application of dime-sized amount (2g) of 5% topical lidocaine ointment to be applied AROUND painful sites QID PRN. 5. Could also consider application of alternating heat and/or ice to painful area (as per patient preference). However, patient should be instructed that if using heating pad, to keep usage down to no more than 20 minutes at a time (on 20 minutes/off 20 minutes) to prevent crouch AND to avoid application of heat on top of ANY medicated patches as heat will cause medication to dump at faster rate than intended. 6. Agree w/ opioid analgesics as ordered during hospitalization. The regimen may be modified by the LIP at the accepting acute rehab facility as deemed appropriate. 7. While inpatient, could also consider consultation to Healing Services/[employer] and/or Art and/or Music Therapy and/or Reiki Therapy for amelioration of Mr. Weston's acute on chronic pain complaints as this type of therapy would provide distraction away from current pain complaints and may allow for a break in the psychological aspect of pain. Nursing should feel free to order this service for their patients should they feel this type of service would benefit their patients while in-hospital. Thank you for this consult. Primary team responsible for placing all/any of above mentioned orders as deemed appropriate. Please don't hesitate to contact us with any further concerns. HPI: Elia Weston was off the floor at time of this morning's visit. A total of ~30 minutes was spent on the date of the service which included obtaining and/or reviewing history via extensive chart review as well as via discussion w/ consulting provider Dr. Paco Garduno in addition to completing clinical documentation. OARRS: Applicable PDMP website checked and validated. Please see below for copied/pasted report: Prescriptions Total: 28 Private Pay: 1 Filled Written ID Drug QTY Days Prescriber RX # Dispenser Refill Daily Dose* Pymt Type TOBACCO PREVENTION HEALTH EDUCATOR 09/17/2024 09/17/2024 1 Oxycodone Hcl (Ir) 10 Mg Tab 90.00 30 Ca Bat [id number] Dis (1180) 0 45.00 [place]ME [place] Ins [place] 09/14/2024 09/14/2024 1 Oxycodone-Acetaminophen 5-325 12.00 3 To Le [id number] Dis (1180) 0 30.00 [place] 08/19/2024 08/18/2024 1 Oxycodone Hcl (Ir) 10 Mg Tab 90.00 30 Ca Bat [id number] Dis (1180) 0 45.00 [place] 08/14/2024 08/13/2024 1 Oxycodone Hcl (Ir) 10 Mg Tab 18.00 6 Ca Bat [id number] Dis (1180) 0 45.00 [place] 07/15/2024 05/18/2024 1 Oxycodone Hcl (Ir) 10 Mg Tab 90.00 30 Ca Bat [id number] Dis (1180) 0 45.00 [place] 06/16/2024 05/18/2024 1 Oxycodone Hcl (Ir) 10 Mg Tab 90.00 30 Ca Bat [id number] Dis (1180) 0 45.00 [place] 05/18/2024 05/18/2024 1 Oxycodone Hcl (Ir) 10 Mg Tab 90.00 30 Ca Bat [id number] Dis (1180) 0 45.00 [place] 03/17/2024 03/17/2024 1 Oxycodone Hcl (Ir) 10 Mg Tab 28.00 14 Ca Bat [id number] Dis (1180) 0 30.00 [place] 02/02/2024 11/28/2023 1 Oxycodone Hcl (Ir) 10 Mg Tab 90.00 30 Ca Bat [id number] Dis (1180) 0 45.00 [place] 01/02/2024 11/28/2023 1 Oxycodone Hcl (Ir) 10 Mg Tab 90.00 30 Ca Bat [id number] Dis (1180) 0 45.00 [place] 12/30/2023 12/30/2023 1 Oxycodone Hcl (Ir) 10 Mg Tab 3.00 1 Em Bal [id number] [place] (2182) 0 45.00 [place] 11/28/2023 11/28/2023 1 Oxycodone Hcl (Ir) 10 Mg Tab 90.00 30 Ca Bat [id number] Dis (1180) 0 45.00 [place] 11/14/2023 11/14/2023 1 Oxycodone Hcl (Ir) 5 Mg Tablet 42.[address] [id number] Dis (1180) 0 52.50 [place] [place] 11/07/2023 11/07/2023 1 Oxycodone Hcl (Ir) 10 Mg Tab 12.00 7 Ca Bat [id number] Dis (1180) 0 25.71 [place] 10/08/2023 10/08/2023 1 Oxycodone Hcl (Ir) 10 Mg Tab 90.00 30 Ca Bat [id number] Dis (1180) 0 45.00 MME Private Pay [place] Filled Written ID Drug QTY Days Prescriber RX # Dispenser Refill Daily Dose* Pymt Type TOBACCO PREVENTION HEALTH EDUCATOR 09/08/2023 09/08/2023 1 Oxycodone Hcl (Ir) 10 Mg Tab 90.00 30 Ca Bat [id number] Dis (1180) 0 45.00 [place] 08/04/2023 08/04/2023 1 Oxycodone Hcl (Ir) 10 Mg Tab 90.00 30 Ca Bat [id number] Dis (1180) 0 45.00 [place] 07/14/2023 07/14/2023 1 Oxycodone Hcl (Ir) 5 Mg Tablet 120.00 30 Ca Bat [id number] Dis (1180) 0 30.00 [place] 07/11/2023 07/11/2023 2 Hydromorphone 2 Mg Tablet 10.00 5 Cl Fou [id number] José Miguel (6920) 0 20.00 [place] 06/09/2023 06/09/2023 1 Oxycodone Hcl (Ir) 5 Mg Tablet 120.00 30 Ca Bat [id number] Dis (1180) 0 30.00 [place] 05/20/2023 05/20/2023 1 Oxycodone Hcl (Ir) 5 Mg Tablet 90.00 30 Ca Bat [id number] Dis (1180) 0 22.50 [place] 05/13/2023 05/13/2023 1 Oxycodone Hcl (Ir) 5 Mg Tablet 42.00 7 Ra Braxton [id number] Dis (1180) 0 45.00 [place] 04/18/2023 04/18/2023 1 Oxycodone-Acetaminophen 5-325 20.00 5 Ra Braxton [id number] Dis (1180) 0 30.00 [place] 04/07/2023 04/07/2023 1 Oxycodone-Acetaminophen 5-325 9.00 3 Re Dur [id number] Dis (1180) 0 22.50 [place] 03/20/2023 03/20/2023 1 Tramadol Hcl 50 Mg Tablet 8.00 2 Br Bar [id number] Dis (1180) 0 40.00 [place] 11/30/2022 11/30/2022 1 Oxycodone-Acetaminophen 5-325 12.00 3 Re Dur [id number] Dis (0126) 0 30.00 [place] 11/21/2022 11/21/2022 1 Hydrocodone-Acetamin 5-325 Mg 10.00 2 Re Maikel [id number] Dis (1180) 0 25.00 [place] 10/19/2022 10/19/2022 1 Oxycodone-Acetaminophen 5-325 12.00 3 Ju And [id number] Dis 1180) 0 30.00 [place] Providers Total: 12 Name Address [facility] Zipcode Phone Cory Barksdale D.O. [address] [place] [address] [facility] [address] - Dillon Restrepo DO [address] [facility] [address] - Claire Johansen MD [address] [facility] [address] - Dmitriy Matos MD [address] [place] [address] [facility] [address] - Claire Johansen [address] [facility] [id number] - Ashlyn Magana [address] [facility] [phone] - Ashlyn Dozier [address] [facility] [address] - [facility] [address] [facility] [address] - Mohamud Colvin [address] [facility] [address] - Awa Gallardo PA-C [address] [facility] [place] [address] [facility] [address] - Jayden Le [address] [place] [address] [facility] [address] - Sagar Ojeda [address] [facility] [address] - Pharmacies Total: 4 Name Address [place] [facility] Zip[facility] Phone [facility] [place] [facility] [phone] [place] [address] [facility] [phone] [facility] [phone] [facility] [phone] [facility] [address] [facility] [place] [facility] [phone] [facility] [phone] PAST MEDICAL HISTORY: PAST MEDICAL HISTORY Diagnosis Date Anemia of chronic disorder Anuria Atrial fibrillation (HCC) 12/02/2018 on Coumadin and Amiodarone BMI 40.0-44.9, adult (HCC) ESRD (end stage renal disease) on dialysis (HCC) 2005 ESRD from HTN Dialysis M,W,[facility] [phone] Essential hypertension, benign 1998 EKG 09/30 NL. Hearing loss of both ears History of mitral valve stenosis Hx of bacterial endocarditis Hyperparathyroidism due to end stage renal disease on dialysis (HCC) Kidney disease 2005 ESRD due to HTN; on IHD since 2005 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 and scoliosis h/o this 3 y. Dx by xray. Mechanical complication of arteriovenous fistula surgically created (HCC) Mechanical complication of dialysis catheter (HCC) Mitral valve disease Morbid obesity (HCC) MS (mitral stenosis) 10/08/2018 Transesophageal US YEIMY on CPAP Paroxysmal atrial fibrillation (HCC) PE (pulmonary thromboembolism) (HCC) Pelvic mass Pseudoaneurysm of AV hemodialysis fistula (HCC) Wound of right side of back from friction/rubbing of jacket, goes to wound care center in [place] PAST SURGICAL HISTORY: PAST SURGICAL HISTORY Procedure Laterality Date ARTERIOVENOUS FISTULA Left 08/29/2010 CAPSULE ENDOSCOPY 07/01/2023 CARDIOVERSION-ELECTIVE N/A 12/03/2018 200 joules synchronized - successful COLONOSCOPY 07/01/2023 EGD 06/27/2023 HERNIA REPAIR HX PAST SURGICAL HISTORY OF 08/29/2010 dialysis fistula left arm PAST SURGICAL HISTORY OF Right 03/2019 Right leg femoral vein to superficial femoral artery loop graft mid thigh REPAIR CLEFT LIP RMVL LEANN CVC W/O SUBQ PORT/TOBACCO PREVENTION HEALTH EDUCATOR 01/17/2013 SHX CARDIAC RADIOFREQUENCY ABLATION 08/21/2021 s/p Maze procedure SHX MITRAL VALVE REPLACEMENT 08/21/2021 FAMILY HISTORY: FAMILY HISTORY Adopted: Yes Problem Relation Age of Onset None Mother None Father Aneurysm No Family History SOCIAL HISTORY: Social History Tobacco Use Smoking status: Never Smokeless tobacco: Never Vaping Use Vaping status: Never Used Substance Use Topics Alcohol use: No Drug use: No MEDICATIONS: Prior to Admission Medications: melatonin 10 mg cap, Take 1 capsule by mouth daily at bedtime., Disp: , Rfl: Cinacalcet HCl (SENSIPAR) 60 mg tablet, Take 120 mg by mouth once daily., Disp: , Rfl: warfarin (COUMADIN) 5 mg tablet, Take 1 tablet by mouth once daily., Disp: 60 tablet, Rfl: 0 polyethylene glycol 3350 (MIRALAX) 17 gram packet, Take 1 Packet by mouth once daily. Dissolve dose in 4 - 8 ounces of liquid and take as directed., Disp: 60 Each, Rfl: 0 oxyCODONE IR (ROXICODONE) 10 mg tab, Take 10 mg by mouth every 8 hours as needed for pain., Disp: , Rfl: , 10/11/2024 VELPHORO 500 mg chew, Crush or chew and swallow 2 tablets 3 times a day with meals, Disp: , Rfl: B Complex-Vitamin C-Folic Acid (JOHNSON-BRENDA) 0.8 mg tab, Take 1 tablet by mouth once daily., Disp: , Rfl: , 10/11/2024 midodrine (PROAMATINE) 10 mg tablet, Take 2 tablets by mouth every 8 hours., Disp: 180 tablet, Rfl: 11 MEDICATION, NON-DATABASE, Apply 1 Each to affected area once daily. Self adhesive 5x9 inch abd pad/dressing, Disp: 30 Each, Rfl: 2, Unknown WALKER ROLLATOR SEAT WITH 6 WHEELS - RED, ., Disp: 1 Each, Rfl: 1, Unknown Blood Pressure Test Kit-Large (QUICK RESPONSE BP MONITOR), 1 Each once daily., Disp: 1 Each, Rfl: 0, Unknown Current Facility-Administered Medications Medication Dose Route Frequency NaCl 0.9% iv flush bag 20 mL INTRAVENOUS PRN dextrose 15 gram/32 mL 15 g (TRUEPLUS) 15 g ORAL PRN Or glucagon 1 mg injection 1 mg INTRAMUSCULAR PRN Or dextrose 10% iv bolus 12.5 g INTRAVENOUS PRN heparin iv infusion 25,000 units in NaCl 0.45% 250 mL STANDARD NOMOGRAM 0-3,000 Units/hr INTRAVENOUS CONTINUOUS And heparin RATE CHANGE bolus 1,000-10,000 Units for subtherapeutic PTTAC results 1,000-10,000 Units INTRAVENOUS PRN midodrine 20 mg tab(s) (PROAMATINE) 20 mg ORAL q 8 H cinacalcet 90 mg tab(s) (SENSIPAR) 90 mg ORAL DAILY polyethylene glycol 3350 17 g packet 17 g ORAL DAILY pantoprazole [address] 40 mg tab(s) (PROTONIX) 40 mg ORAL DAILY acetaminophen 650 mg tab(s) (TYLENOL) 650 mg ORAL q 6 H PRN sevelamer carbonate 2,400 mg tab(s) (RENVELA) 2,400 mg ORAL TID w MEALS melatonin 9 mg tab(s) 9 mg ORAL DAILY (8 PM) calcitriol 1.5 mcg cap(s) (ROCALTROL) 1.5 mcg ORAL - midodrine 20 mg tab(s) (PROAMATINE) 20 mg ORAL PRN DIALYSIS [START ON 10/18/2024] Darbepoetin Osito In Polysorbat 60 mcg injection (ARANESP) 60 mcg SUBCUTANEOUS q MON B Complex-Vitamin C-Folic Acid 1 tablet tab(s) (JOHNSON-VIT) 1 tablet ORAL DAILY warfarin 5 mg tab(s) (COUMADIN) 5 mg ORAL DAILY - WARFARIN oxyCODONE IR 5 mg tab(s) (ROXICODONE) 5 mg ORAL q 6 H PRN ALLERGIES: ALLERGIES Allergen Reactions Gabapentin Unknown, Other: See Comments Trazodone Other: See Comments Fidgety COMPLETE ROS: All 12 systems negative unless otherwise specified in HPI PHYSICAL EXAM: Patient Vitals for the past 24 hrs: BP Temp Temp src Pulse Resp SpO2 10/15/24 0418 136/75 36.6 ?C (97.9 ?F) Oral 80 20 99 % 10/15/24 0109 118/63 36.6 ?C (97.9 ?F) Oral 87 20 100 % 10/14/24 2019 122/61 36.8 ?C (98.2 ?F) Oral 95 20 99 % 10/14/24 1657 122/58 36.7 ?C (98.1 ?F) Oral 89 20 98 % 10/14/24 1542 135/74 36.6 ?C (97.9 ?F) Oral 84 16 98 % 10/14/24 1142 127/72 36.7 ?C (98.1 ?F) Oral 95 16 99 % Body mass index is 36.07 kg/m?. DATA: 10/12/2024 ECG Component Results Component Value Range AND Units Status Performing Lab Ventricular Rate 87 BPM Final HEART Atrial Rate 87 BPM Final HEART P-R Interval 222 ms Final HEART QRS Duration 76 ms Final HEART QT Interval 388 ms Final HEART QTC Calculation (Bazett) 466 ms Final HEART Calculated P Assumption 67 degrees Final HEART Calculated R Assumption 145 degrees Final HEART Calculated T Assumption 88 degrees Final HEART Impression SINUS RHYTHM WITH 1ST DEGREE AV BLOCK RIGHT AXIS DEVIATION Radiology: IMPRESSION OF 09/05/[address] CHEST ABDOMEN PELVIS WITHOUT CONTRAST 1. Chronic marked narrowing of the superior vena cava with extensive body wall collaterals draining to the IVC and azygous system. Right internal jugular catheter remains in place with its tip in the upper right atrium. A left femoral vein dialysis catheter has its tip in the IVC near the junction with the a hepatic veins. 2. Mild bilateral gynecomastia. There is adjacent skin thickening which may correlate with history of cellulitis, similar on the left and probably increasing on the right since the comparison study. There are numerous adjacent subcutaneous collateral veins. Please correlate clinically. 3. Status post median sternotomy for mitral valve replacement and left atrial appendage ligation. Atherosclerosis including coronary artery calcification. 4. Minimal nonspecific patchy peripheral bronchiolitis. Mild partial atelectasis or scarring in the left lung base. No definite focal infiltrates. 5. Renal cortical atrophy and numerous bilateral renal cysts. 6. Chronic erosive changes in the sacroiliac joints and symphysis pubis with prominent rounded clustered calcifications in the region of bony erosion in the right pubic bone, findings likely related to secondary hyperparathyroidism and tumoral calcinosis. Laboratory: Recent Labs 10/15/24 0431 10/14/24 2246 10/14/24 0657 10/13/24 0751 10/13/24 0352 WBC 4.99 -- 5.28 -- 5.25 HB 8.2* -- 8.3* -- 8.0* HCT 27.0* -- 27.9* -- 26.0* PLT 238 -- 262 -- 270 INR 1.4* -- 1.3 -- -- APTT >139.0* 75.4* 75.8* < > -- NA 137 -- 137 -- 139 K 4.6 -- 4.7 -- 4.7 CHLOR 92* -- 93* -- 95* CO2 28 -- 26 -- 26 BUN 27* -- 20 -- 34* CREAT 8.02* -- 6.22* -- 7.48* GLUC 84 -- 75 -- 111* CA 8.4* -- 8.9 -- 8.7 < > = values in this interval not displayed. Estimated Creatinine Clearance: 15 mL/min (A) (based on SCr of 8.02 mg/dL (H)). AST Date Value Ref Range Status 10/12/2024 16 14 - 40 U/L Final ALT Date Value Ref Range Status 10/12/2024 13 10 - 54 U/L Final MAR Reviewed. SIGNATURE: Bailey Brown PA-C PAGER: [phone] DATE: October 15, 2024 TIME: 9:08 AM BAS METAB 1999 PNL SERPL Collected: 4:31 AM Status: F Source: [facility] Order Comment: Specimen Type : BLOOD SPECIMEN Ordering Facility: [facility] Address: [place] [id number] TYPE CODE TESTS RESULT OUT OF RANGE REFERENCE UNITS LAB 2345-7(LOINC) Glucose SerPl-mCnc 84 74-99 mg/dL Result Comment: The [place] Diabetes Association (ADA) provides guidance for cutoff values for fasting glucose and random glucose. The ADA defines fasting as no caloric intake for at least 8 hours. Fasting plasma glucose results between 100 to 125 mg/dL indicate increased risk for diabetes (prediabetes). Fasting plasma glucose results greater than or equal to 126 mg/dL meet the criteria for diagnosis of diabetes. In the absence of unequivocal hyperglycemia, results should be confirmed by repeat testing. In a patient with classic symptoms of hyperglycemia or hyperglycemic crisis, random plasma glucose results greater than or equal to 200 mg/dL meet the criteria for diagnosis of diabetes. Reference: Standards of Medical Care in Diabetes 2016, [place] Diabetes Association. Diabetes Care. 2016.39(Suppl 1). LAB 3094-0(LOINC) BUN SerPl-mCnc 27 High 9-24 mg/ dL LAB 2160-0(LOINC) Creat SerPl-mCnc 8.02 High 0.73-1.22 mg/dL LAB 2951-2(LOINC) Sodium SerPl-sCnc 137 136-144 mmol/L LAB 2823-3(LOINC) Potassium SerPl-sCnc 4.6 3.7-5.1 mmol/L LAB 2075-0(LOINC) Chloride SerPl-sCnc 92 Low 98-107 mmol/L LAB 202-9(LOINC) CO2 SerPl-sCnc 28 22-30 mmo l/L LAB 37123-6(LOINC) Anion Gap SerPl-sCnc 17 High 8-15 mmol/L LAB 83729-1(LOINC) Calcium SerPl-mCnc 8.4 Low 8.5-10.2 mg/dL LAB 53108-2(LOINC) Creatinine + eGFR Pnl SerPlBld 8 Low >=60 mL/min/1 .73m??? Result Comment: Estimated Gl omerular Filtration Rate (eGFR) is calculated using the 2020 CKD-EPI creatinine equation. This equation utilizes serum creatinine, sex, and age as parameters. The creatinine assay has traceable calibration to isotope dilution-mass spectrometry. Refer to KDIGO guidelines for clinical interpretation. In patients with unstable renal function, e.g. those with acute kidney injury, the eGFR may not accurately reflect actual GFR. Performed By: #### [id number] # ### [facility] CLIA [id number] [address] [place] [address] STATES OF [facility] CBC PNL BLD AUTO Collected: 5 4:31 AM Status: F Source: [facility] Order Comment: Specimen Type : BLOOD SPECIMEN Ordering Facility: [facility] Address: [address] [place] [address] TYPE CODE TESTS RESULT OUT OF RANGE REFERENCE UNITS LAB 6690-2(LOINC) WBC # Bld Auto 4.99 3.70-11.00 k/uL LAB 789-8(LOINC) RBC # Bld Auto 2.94 Low 4.20-6.00 m/uL LAB 718-7(LOINC) Hgb Bld-mCnc 8.2 Low 13.0-17.0 g/dL LAB 4544-3(LOINC) Hct VFr Bld Auto 27.0 Low 39.0-51.0 % LAB 787-2(LOINC) MCV RBC Auto 91.8 80.0-100.0 fL LAB 785-6(LOINC) MCH RBC Qn Auto 27.9 26.0-34.0 pg LAB 786-4(LOINC) MCHC RBC Auto-mCnc 30.4 Low 30.5-36.0 g/dL LAB 95885-3(LOINC) RDW RBC-Rto 18.2 High 11.5-15.0 % LAB 777-3(LOINC) Platelet # Bld Auto 238 150-400 k/uL LAB 52710-5(LOINC) PMV Bld Auto 10.9 9.0-12.7 fL LAB 771-6(LOINC) nRBC # Bld Auto <0.01 <0.01 k/uL Performed By: #### [id number] # ### [facility] CLIA [id number] [address] [place], [place] [id number] [place] PT PNL PPP Collected: 10/15/2024 4:31 AM Status: F Source: [facility] Order Comment: Specimen Type : BLOOD SPECIMEN Ordering Facility: [facility] Address: [address] [place] [address] TYPE CODE TESTS RESULT OUT OF RANGE REFERENCE UNITS LAB 5902-2(LOINC) Prothrombin time 15.0 High 9.7-13.0 sec LAB 6301-6(LOINC) INR PPP 1.4 High 0.9-1.3 Result Comment: Vitamin K An tagonist (VKA) Therapeutic Range: INR 2 to 3 (Target INR of 2.5) Note: For patients treated with VKA drugs, such as warfarin, the [place] College [employer] Chest [employer]icians 2012 Guideline recommends a therapeutic INR range of 2 to 3 (target INR of 2.5). This recommendation includes high-risk patients with antiphospholipid syndrome with previous arterial or venous thromboembolism, current-generation mechanical or bioprosthetic aortic heart valve replacement. Note: Patients with mechanical aortic valve replacement and additional risk factors for thromboembolic events (atrial fibrillation, previous thromboembolism, LV dysfunction, hypercoagulable conditions) or an older generation mechanical AVR (i.e., ball in-Cage) or any mechanical MVR should have a INR therapeutic range of 2.5 to 3.5 (target INR of 3). Ranjit YOUSSEF, et al. Chest 2012, 141:7S-47S Kevin RA, et al. [facility] 2017, 70: 252-289 Performed By: #### PTTAC, 34 528-0 #### [facility] CLIA [id number] [address] [place], [place] [id number] [place] PTT, ANTICOAGULANT THERAPY Collected: 0 10/15/2024 4:31 AM Status: F Source: [facility] Order Comment: Specimen Type : BLOOD SPECIMEN Ordering Facility: [facility] Address: [address] [place] [address] TYPE CODE TESTS RESULT OUT OF RANGE REFERENCE UNITS LAB 56996-9(LOINC) aPTT PPP >139.0 High 23.0-32.4 sec Result Comment: Sample check ed for clot. Result rechecked. Performed By: #### PTTAC, 34 528-0 #### [facility] CLIA [id number] [address] [place] [address] PTT, ANTICOAGULANT THERAPY Collected: 0 10/14/2024 10:46 PM Status: F Source: [facility] Order Comment: Specimen Type : BLOOD SPECIMEN Ordering Facility: [facility] Address: [address] [place] [address] TYPE CODE TESTS RESULT OUT OF RANGE REFERENCE UNITS LAB 07196-0(LOINC) aPTT PPP 75.4 High 23.0-32.4 sec Performed By: #### PTTAC ### # [facility] CLIA [id number] [address] [place] [address] PLAN OF CARE Observed: 10/14/2024 5:03 PM Status: COMPLETED Source: [facility] HNO ID: [id number] Author: KATHLEEN FERGUSON PA-C Service: Interventional Radiology Author Type: Physician Teacher Tutor Type: Plan of Care Filed: 10/14/2024 17:10 Note Text: Interventional Radiology Plan of Care Mr. Weston is a 44 y/o male with a pmhx of SVC syndrome. He was brought down for a right IJ tunneled line removal. However, the patient was under the impression his Lorena was placed in hopes of a stent being placed in the future. Today, the patient did not consent to us removing the Lorena The patient would like to discuss options of stent placement, as he was told by previous provider at OSH that it could be accomplished. Pt requests to speak to a specialist (vascular surgery / IR) regarding potential options of stent placement before he will agree for line to be removed. Patient returned to [facility] with no complaints Kathleen Ferguson PA-C October 14, 2024 5:04 PM PROGRESS Observed: 10/14/2024 4:36 PM Status: COMPLETED Source: [facility] HNO ID: [id number] Author: PACO GARDUNO MD Service: General Internal Medicine Author Type: Physician Type: Progress Notes Filed: 10/14/2024 16:56 Note Text: DEPARTMENT OF HOSPITAL MEDICINE PROGRESS NOTE SERVICE DATE: 10/14/2024 SERVICE TIME: 11:10 am Hospital Medicine/Primary Attending: Paco Garduno MD NIGHT AND WEEKEND COVERAGE: [facility] COVERAGE: Days: [phone], please page Paco Garduno for patient issues. Nights: [phone], please page Team GIM 1: G/H 8th floor: [phone]; Non 8th floor [phone] Subjective INTERVAL HPI: Oxycodone was switched to Dilaudid pill and today is asking for IV Dilaudid. Patient agreed for removal of right IJ tunneled catheter which is not being used for several months. This was placed at . Current Facility-Administered Medications Medication Dose Route Frequency NaCl 0.9% iv flush bag 20 mL INTRAVENOUS PRN dextrose 15 gram/32 mL 15 g (TRUEPLUS) 15 g ORAL PRN Or glucagon 1 mg injection 1 mg INTRAMUSCULAR PRN Or dextrose 10% iv bolus 12.5 g INTRAVENOUS PRN heparin iv infusion 25,000 units in NaCl 0.45% 250 mL STANDARD NOMOGRAM 0-3,000 Units/hr INTRAVENOUS CONTINUOUS And heparin RATE CHANGE bolus 1,000-10,000 Units for subtherapeutic PTTAC results 1,000-10,000 Units INTRAVENOUS PRN midodrine 20 mg tab(s) (PROAMATINE) 20 mg ORAL q 8 H cinacalcet 90 mg tab(s) (SENSIPAR) 90 mg ORAL DAILY polyethylene glycol 3350 17 g packet 17 g ORAL DAILY pantoprazole DR 40 mg tab(s) (PROTONIX) 40 mg ORAL DAILY acetaminophen 650 mg tab(s) (TYLENOL) 650 mg ORAL q 6 H PRN sevelamer carbonate 2,400 mg tab(s) (RENVELA) 2,400 mg ORAL TID w MEALS melatonin 9 mg tab(s) 9 mg ORAL DAILY (8 PM) piperacillin-tazobactam iv piggyback 3.375 g in dextrose (iso-osmotic) 50 mL (ZOSYN) 3.375 g INTRAVENOUS q 12 H calcitriol 1.5 mcg cap(s) (ROCALTROL) 1.5 mcg ORAL -WE- HYDROmorphone 1 mg tab(s) (DILAUDID) 1 mg ORAL q 6 H PRN midodrine 20 mg tab(s) (PROAMATINE) 20 mg ORAL PRN DIALYSIS [START ON 10/18/2024] Darbepoetin Osito In Polysorbat 60 mcg injection (ARANESP) 60 mcg SUBCUTANEOUS q MON B Complex-Vitamin C-Folic Acid 1 tablet tab(s) (JOHNSON-VIT) 1 tablet ORAL DAILY warfarin 5 mg tab(s) (COUMADIN) 5 mg ORAL DAILY - WARFARIN Objective PHYSICAL EXAM: BP 135/74 Pulse 84 Temp (Src) 97.9 (Oral) Resp 16 Ht 5' 9.685 (1.77m) Wt 249 lb 1.9 oz (113.0kg) SpO2 98% BMI 36.07 kg/(m2). O2 Therapy: Room Air General: Appeared comfortable in bed. HEENT:oral cavity moist,no thrush. Heart:Normal S1,S2.No murmur.No JVD Lungs:Good bilateral air entry.No wheezing or crackles. Right IJ tunneled single-lumen catheter noted. Abdomen:Soft,non-distended and non tender.No organomegaly.Normal bowel sounds. Extremities:No edema in lower extremities. Left femoral vein tunneled dialysis catheter noted. Lines, Drains, and Airways Line Duration Dialysis / Apheresis Double Lumen 10/05/24 External Facility Tunneled Left Femoral 9 days Peripheral 10/12/24 0530 [facility] Short Right Forearm 20 Gauge 2 days Peripheral 10/12/24 0951 Left Forearm 22 Gauge 2 days DATA: Diagnostic tests reviewed for today's visit: Most recent labs Most recent imaging Assessment/Plan Problem List Assessment AND Plan Dialysis patient ([facility]) ESRD (end stage renal disease) on dialysis ([facility]) HTN (hypertension) YEIMY (obstructive sleep apnea) 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 Personal history of DVT (deep vein thrombosis) PAF (paroxysmal atrial fibrillation) ([facility]) History of stroke Hypotension, chronic Chronic pain syndrome Anemia due to stage 5 chronic kidney disease, not on chronic dialysis ([facility]) ([facility]) Status post Maze operation for atrial fibrillation Skin ulcer, limited to breakdown of skin ([facility]) HOSPITAL COURSE: Elia Weston is a 44 year old male with h/o atrial fibrillation and severe mitral stenosis s/p mitral valve replacement with On-x valve, Maze procedure and RADHA clip on 08/21/2021, currently on Coumadin, ESRD on IHD via left femoral vein TDC on MWF([facility] ), 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 He also expressed a poor pain control on oxycodone. Patient follows with pain management as outpatient for pain associated with chest and abdominal wounds. He currently takes oxycodone 10 mg every 8 hours. Denied fevers or foul-smelling discharge from both wounds. Receiving wound care at home. Assessment/plan: 1. Chest and abdominal wounds: Chest ulcerations started few months ago but abdominal wall ulcerations are chronic which have been bothering him for few years. Abdominal wounds are presumed to be due to skin breakdown with underlying abdominal wall varices which developed due to central venous stenosis and dilatation of inferior epigastric vein.Patient had several admissions to outside hospitals in last 2 years with infection of abdominal wounds. He also has history of hemorrhagic shock due to bleeding from abdominal wall varices. CTA abdomen and chest in past showed extensive body wall collaterals. Noted patient underwent biopsy of right lower back wound on 06/27/2023 which showed fibrosis and vascular ectasia. ESRD patients are at risk of calciphylaxis which are painful lesions, typically start as painful lumps but above biopsy results are not consistent with calciphylaxis. Also imaging studies have confirmed extensive collaterals in abdominal and chest ramirez. Dermatology evaluated patient, offered biopsy, patient deferred biopsy sample to be taken tomorrow. Discontinued oxycodone as pain is poorly controlled. Ordered Dilaudid p.o. 1 mg every 6 hours as needed Consulted infectious disease, discussed with Dr. Davis on 10/14-no concern for infection of chest wall wounds but abdominal wall wounds need to be reexamined. Patient declined examination of abdominal wall wounds on 10/14 due to severe pain with dressing removal. Wound care and plastic surgery recommendations noted.Surgery not indicated per plastic surgery. Blood cultures from 10/12-no growth. Continue Zosyn for now. 2. Atrial fibrillation and severe mitral stenosis s/p mitral valve replacement with On-x valve, Maze procedure and RADHA clip on 08/21/2021. EKG on admission-normal sinus rhythm. Patient said he was compliant with Coumadin but INR was 1.2 on admission. Currently on heparin gtt + Coumadin 5 mg daily.INR 1.3. 3. ESRD on hemodialysis via left femoral vein TDC on MWF 4. 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 Nephrology helping with dialysis needs. Discussed with patient's regarding right IJ tunneled single-lumen central line. Apparently it was placed at several months ago with intention to place stent in one of the veins in chest but apparently that radiologist has moved out of and patient was never called. I discussed the risk of leaving central line without being used causing bacteremia. She agreed right IJ central line to be removed. Consulted IR -requested to remove right IJ central line Chronic problems include 5. Anemia of ESRD -Hb at baseline(8.0-8.5) 6. GERD -continue pantoprazole 7. Obesity 8. YEIMY on CPAP 9. Secondary hyperparathyroidism -continue calcitriol, Cinacalcet, sevelamer Medication and Non-Pharmacologic VTE Prophylaxis/Anticoagulants Anticoagulant AND Antiplatelet Medications (From admission, onward) Start Dose Route Frequency Last Action Ordered Stop 10/14/24 1014 warfarin 5 mg tab(s) (COUMADIN) 5 mg ORAL DAILY - WARFARIN Ordered 10/14/24 1015 -- 10/12/24 0800 heparin iv infusion 25,000 units in NaCl 0.45% 250 mL STANDARD NOMOGRAM (Heparin Infusion + Bolus for Subtherapeutic PTTAC) 0-30 mL/hr Placed in And Linked Group 0-3,000 Units/hr INTRAVENOUS CONTINUOUS Stopped - Heparin, 10/14 1628 10/12/24 0740 -- 10/12/24 1111 activity - mobilize patient (nj,ms) VTE Prophylaxis: VTE prophylaxis appropriate Disposition: To be determined Plan of care discussed with Provider, RN, Patient SIGNATURE: Paco Garduno MD PATIENT NAME: Elia Weston DATE: October 14, 2024 TIME: 11:10 am CONSULT Observed: 10/14/2024 4:30 PM Status: COMPLETED Source: [facility] HNO ID: [id number] Author: HEIDY SIMMONS APRN.MIKI Service: Physical Medicine AND Rehabilitation Author Type: Nurse Practitioner Type: Consults Filed: 10/14/2024 16:31 Note Text: PMANDR consult received today. Chart reviewed. Attempted multiple times to see patient, transport now at bedside to take pt for procedure. Will try again tomorrow for PMANDR evaluation.Thank you for the consult. Please call with any questions. Current location: [place] [place] [id number] Heidy Simmons APRN.[facility] Physical Medicine and Rehabilitation pager [phone] THERAPY NT Observed: 10/14/2024 4:22 PM Status: COMPLETED Source: [facility] HNO ID: [id number] Author: LINNEA OGLESBY PT Service: Physical Therapy Author Type: Physical Therapist Type: Therapy (PT/OT/Speech/Resp) Filed: 10/14/2024 16:22 Note Text: Physical Therapy Evaluation Summary SERVICE DATE: 10/14/2024 SERVICE TIME: 1525 to 1608 ROOM: [place] [address] PT 6 Clicks Score: 17 DISCHARGE RECOMMENDATIONS Acute Rehab Recommended Discharge Disposition Comments: for OT alignment; though pt likely to progress while in house. Pt also reporting he thinks he will need increased time at rehab (SNF) vs. short stay at [facility]. Recommended Discharge Disposition Due to: Functional deficits requiring ongoing therapy service prior to discharge home., Balance deficits Recommended Discharge Equipment: To Be Determined ASSESSMENT Response to Therapy Interventions: Good Participation in Activities, Pain, Low Activity Tolerance pt performing functional mobility at CGA - min (A) level. PT recommending [facility] though pt likely to progress with functional mobility while in house. Pt is highly motivated to participate with PT and improve endurance. Pt limited to short ambulation distance 2/2 fatigue. PRECAUTIONS Fall Risk, Bed/Chair Alarm CURRENT HOSPITAL COURSE presenting with uncontrolled pain from chest and abdominal wounds. 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 IND ADLs although he reports that bathing and dressing has been painful and time-consuming. Has been sleeping in recliner 2/2 to pain. Endorses one fall ~1 week ago from [employer] Drives. SUBJECTIVE pt pleasantly agreeable to PT THERAPY DIAGNOSIS Reduced mobility-other TREATMENT INTERVENTIONS Evaluation, Gait Training (02777), Therapeutic Activity (36489) Timed Code Treatment (minutes): 28 Skilled Treatment Time (minutes): 43 TRAINING AND EDUCATION PROVIDED Anatomy and Impact on Deficits, Bed Mobility, Benefits of In-Hospital Mobility, Discharge Planning, Disease Specific Education, Assistive Device Use, Exercise Program, Expected Functional Level, Gait Pattern, Reduction of Deviations, Patient Exercise/Therapy Program Support Needs, Precautions/Restrictions, Role of Physical Therapy, Standing Balance, Treatment Protocol, Transfers THERAPEUTIC SKILLS USED Activity Dosing, Assessment of Tolerance Including Vitals Response to Activity, Cues for Sequencing/Proper Technique for Activity, Cuing Verbal, Management of Critical Lines, Tubes and/or Drains, Movement Facilitation, Physical Assist, Postural Alignment Correction, Teach-Back for Education FUNCTIONAL STATUS Bed Mobility Supine To Sit: Minimal Assistance Transfers Sit To Stand: Minimal Assistance Stand To Sit: Contact Guard Assistance Bed to Chair Gait Contact Guard Assistance Gait Device: Wheeled Walker General Deviations/Observations: Magali decreased, Step length decreased, Lateral sway increased, Wide base of support Gait Distance (feet): 50' Stairs GOALS Patient will demonstrate progress to optimize functional mobility, maximize activity tolerance and endurance to maximize function upon discharge. Rehab Potential: Good PLAN PT Frequency: 4 Times Per Week (2) Treatment Interventions: Education, Energy Conservation Training, Functional Mobility Training, Strengthening, Balance Training, Neuromuscular Re-education Plan for Next Visit: Sit to Stand Transfers, Gait Training SIGNATURE: Linnea Oglesby PT PATIENT NAME: Elia Weston DATE: October 14, 2024 TIME: 4:22 PM CASE MANAGEM Observed: 10/14/2024 3:13 PM Status: COMPLETED Source: [facility] HNO ID: [id number] Author: EILEEN PERALTA, RN Service: Care Management Author Type: Registered Nurse Type: Care Mgt Progress Note Filed: 10/14/2024 15:24 Note Text: CARE MANAGEMENT PROGRESS NOTE SERVICE DATE: 10/14/2024 SERVICE TIME: 3:14 PM LOS: 2 days Post-Acute Discharge Planning Patient Goal(s): General wellness [place] of [place] Explained: [place] of [place] Given: Yes Level of Care Discussed: Long-Term Facility;Inpatient Rehab Facility Anticipated # of Days Until Discharge: 2 Transport at Discharge: Transportation Arrangements: To Be Determined Needs Prior to Discharge: Needs Prior to Discharge: To Be Determined, OT/PT Evaluation, Insurance Authorization (Medical Clearance) Post-Acute Discharge Plan: Pending medical stability. Patient wants [facility], no preference, FOC list provided. Referral sent. OT skilled for [facility]. Awaiting PT eval and PMANDR eval. CM to follow. SIGNATURE: Eileen Peralta RN PATIENT NAME: Elia Weston DATE: October 14, 2024 TIME: 3:14 PM STAPHYLOCOCCUS AUREUS AND MR SA SCREEN, PCR, NASAL Collected: 10/14/2024 12:25 PM Status: F Source: [facility] Order Comment: Specimen Type : SWAB Ordering Facility: [facility] Address: [address] [place] [address] TYPE CODE TESTS RESULT OUT OF RANGE REFERENCE UNITS LAB 04325-6(LOINC ) SA+MRSA Pnl Nose CARLOS+probe Methicillin-RESIS TANT Staphylococcus aureus (MRSA) Detected Abnormal Not Detected Performed By: #### SAPCR ### # [facility] CLIA [id number] [address] [place] [address] [place] [address] [place] CONSULT PROG Observed: 10/14/2024 11:18 AM Status: COMPLETED Source: [facility] HNO ID: [id number] Author: AVIS LUNDY MD Service: Dermatology Author Type: Physician Type: Consult Progress Note Filed: 10/14/2024 16:47 Note Text: DERMATOLOGY HOSPITAL CONSULT SERVICE PROGRESS NOTE Interval Events - Patient still in pain due to ulcerations PHYSICAL EXAM BP 103/60 Pulse 91 Temp 37 ?C (98.6 ?F) (Oral) Resp 16 Ht 177 cm (5' 9.69) Wt 113 kg (249 lb 1.9 oz) SpO2 98% BMI 36.07 kg/m? GEN: Age appropriate Skin examination was performed of the chest, abdomen, back and was pertinent for: - L mid to lower back with scattered round ulcerations with granulation tissue at base and hyperpigmented periphery - R lower back with hypopigmented scars with hyperpigmented periphery Prior and unable to visualize today per patient preference: - L chest, R abdomen, L back with round to ovoid ulceration with white base LABORATORY TESTS: CBC: Recent Labs 10/14/24 0657 10/13/24 0352 10/12/24 0531 WBC 5.28 5.25 6.07 HB 8.3* 8.0* 8.4* HCT 27.9* 26.0* 27.4* PLT 262 270 248 MCV 92.4 91.2 91.9 RDWCV 18.4* 18.1* 17.8* NEUTP -- -- 66.2 ABSNEUT -- -- 4.02 LYMPHP -- -- 16.5 MONOP -- -- 10.2 EODINP -- -- 5.9 BMP: Recent Labs 10/14/24 0657 10/13/24 0352 10/12/24 1013 10/12/24 0531 GLUC 75 111* 89 79 NA 137 139 137 137 K 4.7 4.7 5.5* 6.2* CHLOR 93* 95* 94* 94* CO2 26 26 17* 19* ANION 18* 18* 26* 24* BUN 20 34* 72* 72* CREAT 6.22* 7.48* 11.98* 12.12* HEPATIC: Recent Labs 10/12/24 0531 ALKPHOS 179* ALT 13 AST 16 TBILI 0.3 BIOPSY: FINAL DIAGNOSIS Skin, right lower back, punch biopsy: - Ulcer with dermal fibrosis, vascular ectasia, and reactive vascular proliferation (see comment). AF/LX/rw 06/27/2023 Diagnosis Comment Histologic sections demonstrate a focally ulcerated epidermis. The adjacent intact epidermis demonstrates reactive hyperplasia. Within the dermis, there is fibrosis and an interstitial proliferation of mononuclear cells associated with a chronic lymphohistiocytic infiltrate. Eosinophils are not readily identified. Within the mid dermis, there is a single prominently dilated vessel lined by bland-appearing endothelial cells. To further characterize the dilated vessel, immunohistochemical stains were performed on block A1 at the [facility] and compared to appropriate controls. A significant percentage of dermal interstitial cells, and endothelial cells lining the prominently dilated vessel, are positive for ERG and are negative for D2-40. Clinical photos and history are reviewed. Overall, the histologic features are those of ulcer with dermal fibrosis, vascular ectasia, and reactive vascular proliferation. These histologic features are nonspecific. In the appropriate clinical setting, an ulcer related to chronic ischemia could be considered. Histologic features suggestive of pyoderma gangrenosum are not identified. Clinical correlation is recommended. 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 Dermatology was consulted by ID for multiple ulcerations. Previous skin biopsy revealed ulcer with dermal fibrosis, vascular ectasia, and reactive vascular proliferation - overall nonspecific findings but could be related to chronic ischemia given patient's history and clinical morphology. Differential includes wounds secondary to chronic ischemic process/vasculopathy vs infectious (given the worsening pain, blood cultures NGTD). Do not favor pyoderma gangrenosum or calciphylaxis given clinical appearance however cannot be entirely ruled out. Recommend skin biopsy for CÉSAR and tissue culture for further evaluation since last biopsy over a year ago. Patient agreeable to biopsy however asked us to return tomorrow afternoon to perform the procedure. PLAN: (Not final until signed by staff physician) - Plan for biopsy (CÉSAR + tissue cultures) tomorrow PM - Follow up blood cultures - Continue wound care with Xeroform or Vaseline gauze followed by ABD pad to ulcerations - Caution with debridement and/or skin grafting until underlying etiology determined given potential compromised vasculature - Further recommendations pending biopsy results Will follow Patient seen and discussed with attending printed circuit board assembler, Dr. Conor Lackey MD Dermatology, PGY-4 October 14, 2024 11:19 AM Please use consult pager [phone], Mon-Fri 8am-5pm. Please call adzing and boring machine operator for on-call resident/pager during all other hours. Attending Note: I evaluated the patient and personally participated in the mendoza components of this encounter. I agree with the resident/student's findings and plan as documented and have discussed the case and management of the patient's care with the resident/student. The note was annotated by me as needed to reflect my direct input. Signature: Avis Lundy MD Date: 10/14/2024 Time: 4:47 PM THERAPY NT Observed: 10/14/2024 10:45 AM Status: COMPLETED Source: [facility] HNO ID: [id number] Author: MARLINE VELA OT/L Service: Occupational Therapy Author Type: Occupational Therapist Type: Therapy (PT/OT/Speech/Resp) Filed: 10/14/2024 10:45 Note Text: Occupational Therapy Evaluation Summary SERVICE DATE: 10/14/2024 SERVICE TIME: 0858 to 1003 ROOM: [place] [address] OT 6 Clicks Score: 17 DISCHARGE RECOMMENDATIONS Acute Rehab Recommended Discharge Disposition Due to: Patient requires active, intensive rehabilitation by multiple therapy disciplines. Anticipate the patient will tolerate 3 hours of therapy per day., ADL impairment, Anticipated community discharge, Functional status decline, Requires multiple therapy disciplines Anticipated Discharge Needs: Undetermined Recommended Discharge Equipment: To Be Determined ASSESSMENT Response to Therapy Interventions: Good Participation in Activities, Low Activity Tolerance, Pain Pt. cleared for OT by RN. Pt. highly motivated to participate. Pt. tearful throughout, expressing difficulty coping with loss of independence. Pt. expressed, I can't even play with my kids. Pt. participated in grooming in sitting/standing at sink with therapeutic rest breaks. Following activity, pt. requested BUE HEP. Pt. participated in HEP seated in chair. Recommend [facility] at this time. PRECAUTIONS Fall Risk, Bed/Chair Alarm CURRENT HOSPITAL COURSE presents with acute on chronic wounds to his chest and back Relevant Past Medical History: history of A-fib, anemia, on hemodialysis, chronic pain, hypertension, iron deficiency, obesity, mitral valve replacement on Coumadin, vena cava syndrome, and brachiocephalic chronic occlusive disease HOME LIVING Patient Lives With: Family, Other: See Comment Comments: 2 sons (10 y/o/ and 1 y/o) Assistance Available: Part-Time Entry To Home: Stairs, Without Rail Number Of Stairs Into Home: 3 Number Of Stairs To Bed/Bath: 0 Tub/Shower Type: Tub shower, has been spongebathing Laundry: Shares task, on 1st level, Pt folds Equipment Owned: Cane, Walker- Wheeled, Hand Held Shower PRIOR FUNCTIONAL LEVEL Within Functional Limits, Required Assistance Assistance Required With: Laundry, Cleaning, Meals, Shopping Previously IND with functional mobility without AD. IND ADLs although he reports that bathing and dressing has been painful and time-consuming. Has been sleeping in recliner. Endorses one fall but appears to be an isolated event. Drives. Baseline Cognition: Oriented to self, Oriented to place, Oriented to time, Oriented to situation SUBJECTIVE I'm exhausted all the time. and Can we do exercises too? At least one? COGNITION Responsiveness: Awake Follows Commands: 3-step Commands Psychosocial Factors Impacting Care: Anxiety/Stress Cog 6 Start of Session Total Points (Max Score = 24): 23 (10/14/24) Cog 6 End of Session Total Points (Max Score = 24): 24 (10/14/24) 4AT Score: 0 (10/14/24) Delirium Positive/Negative: Negative (10/14/24) THERAPY DIAGNOSIS Reduced mobility-other, Decreased activities of daily living (ADL), Muscle Weakness (generalized), Unsteadiness on feet, Abnormalities of gait and mobility-other, General symptoms and signs-other, Signs and Symptoms Involving Cognitive Functions and Awareness TREATMENT INTERVENTIONS Evaluation, Self Detention Management (82873), Therapeutic Activity (62023), Therapeutic Exercise (95153) Timed Code Treatment (minutes): 50 Skilled Treatment Time (minutes): 65 TRAINING AND EDUCATION PROVIDED Activity Adaptation/Compensatory Strategies, Bed Mobility, Benefits of In-Hospital Mobility, Coping Skills/Resiliency, Discharge Planning, Executive Functions/Problem Solving, Functional Mobility Involving ADLs, Grooming Tasks, Insight into Deficits, Life Roles/Routines/Habits, Lower Extremity Dressing, Meaningful Hobby/Leisure Participation, Patient Exercise/Therapy Program Support Needs, Role of Occupational Therapy, Safety/Judgment, Self-Efficacy, Self-Expression/Advocacy, Standing Balance to Improve [place] with ADLs/Self-Care, Sleep Hygiene, Stress Management, Treatment Protocol, Visual Scanning/Attention Activities THERAPEUTIC SKILLS USED Activity Dosing, Cues for Sequencing/Proper Technique for Activity, Cuing Verbal, Cuing Tactile, Facilitation of Joint Range of Motion, Management of Critical Lines, Tubes and/or Drains, Movement Facilitation, Physical Assist, Task Analysis Learning, Therapeutic Use of Self, Therapeutic Touch/Massage, Teach-Back for Education FUNCTIONAL STATUS Activities of Daily Living Assist Level Additional Information Feeding Set Up Grooming Set Up, Additional Information seated Bathing Upper Body Minimal Assistance Bathing Lower Body Moderate Assistance Dressing Upper Body Minimal Assistance Dressing Lower Body Moderate Assistance Toileting Moderate Assistance Mobility Assist Level Additional Information Bed Mobility Supine To Sit: Minimal Assistance Sit to Stand Minimal Assistance Stand to Sit Minimal Assistance Bed to Chair Toilet/Commode Shower Functional Mobility Contact Guard Assistance Functional Mobility Device: IV Pole GOALS Patient will demonstrate progress to optimize self-care activities, cognitive and/or coping to maximize function upon discharge. Progress Toward Goals: Progressing as expected Rehab Potential: Good PLAN OT Frequency: 3 Times Per Week Treatment Interventions: Education, Self Care/Home Management, Energy Conservation Training, Strengthening, Functional Mobility Training, Pain Management, Coping Strategy Education Plan for Next Visit: Bathing Training, Dressing Training, Energy Conservation SIGNATURE: Marline [place] OT/L PATIENT NAME: Elia Weston DATE: October 14, 2024 TIME: 10:45 AM CONSULT PROG Observed: 10/14/2024 9:48 AM Status: COMPLETED Source: [facility] ID: [id number] Author: MINAL DAVIS MD Service: Infectious Disease Author Type: ? Type: Consult Progress Note Filed: 10/14/2024 20:10 Note Text: Attestation signed by Minal Davis MD at 10/14/2024 8:10 PM ID Staff Addendum I saw and evaluated the patient with the trainee and agree with her interval history and physical exam, assessment and plan as delineated. Chest, abdominal, back wounds observed--superficial and without evidence of superinfection Not bacteremic I stopped zosyn Observe off of antibiotic therapy Discussed with primary team and printed circuit board assembler. Minal Davis MD INFECTIOUS DISEASE CONSULT PROGRESS NOTE SERVICE DATE: 10/14/2024 SERVICE TIME: 9:49 AM Subjective INTERVAL HISTORY: Derm saw patient and is willing to repeat biopsy, patient is thinking it over. Plastics saw, not recommending intervention and signed off. Today patient's pain seems better controlled. Was willing to let providers examine his back wounds. Denies fevers/chills, new URI sxs. PERTINENT ROS: as above. Current Facility-Administered Medications Medication Dose Route Frequency HYDROmorphone 1 mg tab(s) (DILAUDID) 1 mg ORAL q 6 H PRN midodrine 20 mg tab(s) (PROAMATINE) 20 mg ORAL PRN DIALYSIS dextrose 15 gram/32 mL 15 g (TRUEPLUS) 15 g ORAL PRN Or glucagon 1 mg injection 1 mg INTRAMUSCULAR PRN Or dextrose 10% iv bolus 12.5 g INTRAVENOUS PRN heparin iv infusion 25,000 units in NaCl 0.45% 250 mL STANDARD NOMOGRAM 0-3,000 Units/hr INTRAVENOUS CONTINUOUS And heparin RATE CHANGE bolus 1,000-10,000 Units for subtherapeutic PTTAC results 1,000-10,000 Units INTRAVENOUS PRN midodrine 20 mg tab(s) (PROAMATINE) 20 mg ORAL q 8 H warfarin 5 mg tab(s) (COUMADIN) 5 mg ORAL DAILY cinacalcet 90 mg tab(s) (SENSIPAR) 90 mg ORAL DAILY polyethylene glycol 3350 17 g packet 17 g ORAL DAILY pantoprazole DR 40 mg tab(s) (PROTONIX) 40 mg ORAL DAILY acetaminophen 650 mg tab(s) (TYLENOL) 650 mg ORAL q 6 H PRN sevelamer carbonate 2,400 mg tab(s) (RENVELA) 2,400 mg ORAL TID w MEALS melatonin 9 mg tab(s) 9 mg ORAL DAILY (8 PM) piperacillin-tazobactam iv piggyback 3.375 g in dextrose (iso-osmotic) 50 mL (ZOSYN) 3.375 g INTRAVENOUS q 12 H calcitriol 1.5 mcg cap(s) (ROCALTROL) 1.5 mcg ORAL MO-WE- NaCl 0.9% iv flush bag 20 mL INTRAVENOUS PRN Active Antimicrobials (From admission, onward) Start Stop 10/12/24 1430 piperacillin-tazobactam iv piggyback 3.375 g in dextrose (iso-osmotic) 50 mL (ZOSYN) 3.375 g, INTRAVENOUS, EVERY 12 HOURS -- Objective PHYSICAL EXAM: BP 103/60 Pulse 91 Temp (Src) 98.6 (Oral) Resp 16 Ht 5' 9.685 (1.77m) Wt 249 lb 1.9 oz (113.0kg) SpO2 98% BMI 36.07 kg/(m2). O2 Therapy: Room Air, Liters: 2 Temp last 24 hours: Temp (24hrs), Av.8 ?C (98.2 ?F), Min:36.5 ?C (97.7 ?F), Max:37 ?C (98.6 ?F) GENERAL APPEARANCE: Patient in no acute distress, well appearing. SKIN: patient declined for front to be examined EYES: PERRLA, EOMI, conjunctivae clear, fundi benign. OROPHARYNX: Lips, mucosa, and tongue normal. Teeth and gums normal. Oropharynx normal. BACK: two coin-sized ulcerations on either side of upper lumbar spine. Superficial. No purulence. Large area of scarring in lower right back with healthy granulation tissue LUNGS: Normal breath sounds, clear to auscultation, percussion normal, no wheezes, or crackles. HEART: Normal PMI, Regular rate/rhythm, normal heart sounds, and no murmurs. ABDOMEN: Soft, Non-tender, and with superficial varicose veins EXTREMITIES: No edema or tenderness: NEURO: Awake, alert and oriented x3, cranial nerves II-XII grossly intact, reflexes symetrical, normal gait, no involuntary motions. Lines, Drains, and Airways Line Duration Dialysis / Apheresis Double Lumen 10/05/24 External Facility Tunneled Left Femoral 9 days Peripheral 10/12/24 0530 [facility] Short Right Forearm 20 Gauge 2 days Peripheral 10/12/24 0951 Left Forearm 22 Gauge 1 day DATA: Diagnostic Tests Reviewed for Today's Visit: Most recent labs and imaging results. 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 Found to be hyperkalemic, admitted for further workup and management. ID was consulted due to c/f secondary infection of multiple ulcers. Patient's ulcers are unlikely infected. No erythema or purulence observed on bilateral chest and back wounds that were observed. No fever or leukocytosis. CRP is not significantly elevated to suggest infection. Past biopsy of skin lesion is not consistent with calciphylaxis, possible ischemic etiology. Recommendations: #acute on chronic skin ulcers - Ok to stop Zosyn and observe off antibiotic therapy - agree with Dermatology biopsy with possible tissue culture ID will follow peripherally. Patient seen and staffed with Dr. Davis. Stephanie Bhatti, MS4 SIGNATURE: Stephanie Bhatti PATIENT NAME: lEia Weston DATE: October 14, 2024 TIME: 9:49 AM . CONSULT Observed: 10/14/2024 9:08 AM Status: COMPLETED Source: [facility] HNO ID: [id number] Author: LISSY KUMARI, LUCAS.PLANNED GIVING OFFICER Service: Wound Care Team Author Type: Clinical Nurse Specialist Type: Consults Filed: 10/14/2024 09:09 Note Text: Wound Care Consult Team Assessment Note: PATIENT NAME: Elia Weston WCCT was consulted regarding wounds on the abdomen and back. Dermatology saw the patient on 10/13 and made recommendations for care. WCCT will defer the consult to avoid duplication of services. Please reconsult if further needs arise. Lissy Kumari, MSN, RACKET STRINGER, ACNS-BC, CWOCN [phone] CONSULT Observed: 10/14/2024 7:33 AM Status: COMPLETED Source: [facility] HNO ID: [id number] Author: DIEGO PARKER MD Service: Plastic Surgery Author Type: Physician Type: Consults Filed: 10/14/2024 07:42 Note Text: CONSULT: Plastic Surgery Service SERVICE DATE: 10/14/2024 SERVICE TIME: 7:34 AM REASON FOR CONSULT: chest and abdominal wounds REQUESTING PHYSICIAN: DR. 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 Pt was urgently taken to dialysis on arrival. Plastic surgery was consulted for wound evaluation. He complains of pain in chest and abdominal wounds that have been there for three months. He denies any fevers, CP or SOB. Pt additionally has back wound that he says is the same as his chest and abdominal wounds. Pt was only amendable to evaluation of chest and abdominal wounds bedside. FUNCTIONAL STATUS: Partially dependent PAST MEDICAL HISTORY Diagnosis Date Anemia of chronic disorder Anuria Atrial fibrillation (HCC) 12/02/2018 on Coumadin and Amiodarone BMI 40.0-44.9, adult (HCC) ESRD (end stage renal disease) on dialysis ([facility]) 2005 ESRD from HTN Dialysis M,W,[facility] [phone] Essential hypertension, benign 1998 EKG 09/30 NL. Hearing loss of both ears History of mitral valve stenosis Hx of bacterial endocarditis Hyperparathyroidism due to end stage renal disease on dialysis ([facility]) Kidney disease 2005 ESRD due to HTN; on IHD since 2005 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 and scoliosis h/o this 3 y. Dx by xray. Mechanical complication of arteriovenous fistula surgically created (HCC) Mechanical complication of dialysis catheter ([facility]) Mitral valve disease Morbid obesity (HCC) MS (mitral stenosis) 10/08/2018 Transesophageal US YEIMY on CPAP Paroxysmal atrial fibrillation (HCC) PE (pulmonary thromboembolism) ([facility]) Pelvic mass Pseudoaneurysm of AV hemodialysis fistula ([facility]) Wound of right side of back from friction/rubbing of jacket, goes to wound care center in [place] PAST SURGICAL HISTORY Procedure Laterality Date ARTERIOVENOUS FISTULA Left 08/29/2010 CAPSULE ENDOSCOPY 07/01/2023 CARDIOVERSION-ELECTIVE N/A 12/03/2018 200 joules synchronized - successful COLONOSCOPY 07/01/2023 EGD 06/27/2023 HERNIA REPAIR HX PAST SURGICAL HISTORY OF 08/29/2010 dialysis fistula left arm PAST SURGICAL HISTORY OF Right 03/2019 Right leg femoral vein to superficial femoral artery loop graft mid thigh REPAIR CLEFT LIP RMVL LEANN CVC W/O SUBQ PORT/TOBACCO PREVENTION HEALTH EDUCATOR 01/17/2013 SHX CARDIAC RADIOFREQUENCY ABLATION 08/21/2021 s/p Maze procedure SHX MITRAL VALVE REPLACEMENT 08/21/2021 FAMILY HISTORY Adopted: Yes Problem Relation Age of Onset None Mother None Father Aneurysm No Family History Social History Tobacco Use Smoking status: Never Smokeless tobacco: Never Vaping Use Vaping status: Never Used Substance Use Topics Alcohol use: No Drug use: No melatonin 10 mg cap, Take 1 capsule by mouth daily at bedtime., Disp: , Rfl: Cinacalcet HCl (SENSIPAR) 60 mg tablet, Take 120 mg by mouth once daily., Disp: , Rfl: warfarin (COUMADIN) 5 mg tablet, Take 1 tablet by mouth once daily., Disp: 60 tablet, Rfl: 0 polyethylene glycol 3350 (MIRALAX) 17 gram packet, Take 1 Packet by mouth once daily. Dissolve dose in 4 - 8 ounces of liquid and take as directed., Disp: 60 Each, Rfl: 0 oxyCODONE IR (ROXICODONE) 10 mg tab, Take 10 mg by mouth every 8 hours as needed for pain., Disp: , Rfl: , 10/11/2024 VELPHORO 500 mg chew, Crush or chew and swallow 2 tablets 3 times a day with meals, Disp: , Rfl: B Complex-Vitamin C-Folic Acid (JOHNSON-BRENDA) 0.8 mg tab, Take 1 tablet by mouth once daily., Disp: , Rfl: , 10/11/2024 midodrine (PROAMATINE) 10 mg tablet, Take 2 tablets by mouth every 8 hours., Disp: 180 tablet, Rfl: 11 MEDICATION, NON-DATABASE, Apply 1 Each to affected area once daily. Self adhesive 5x9 inch abd pad/dressing, Disp: 30 Each, Rfl: 2, Unknown WALKER ROLLATOR SEAT WITH 6 WHEELS - RED, ., Disp: 1 Each, Rfl: 1, Unknown Blood Pressure Test Kit-Large (QUICK RESPONSE BP MONITOR), 1 Each once daily., Disp: 1 Each, Rfl: 0, Unknown Current Facility-Administered Medications Medication Dose Route Frequency NaCl 0.9% iv flush bag 20 mL INTRAVENOUS PRN dextrose 15 gram/32 mL 15 g (TRUEPLUS) 15 g ORAL PRN Or glucagon 1 mg injection 1 mg INTRAMUSCULAR PRN Or dextrose 10% iv bolus 12.5 g INTRAVENOUS PRN heparin iv infusion 25,000 units in NaCl 0.45% 250 mL STANDARD NOMOGRAM 0-3,000 Units/hr INTRAVENOUS CONTINUOUS And heparin RATE CHANGE bolus 1,000-10,000 Units for subtherapeutic PTTAC results 1,000-10,000 Units INTRAVENOUS PRN midodrine 20 mg tab(s) (PROAMATINE) 20 mg ORAL q 8 H warfarin 5 mg tab(s) (COUMADIN) 5 mg ORAL DAILY cinacalcet 90 mg tab(s) (SENSIPAR) 90 mg ORAL DAILY polyethylene glycol 3350 17 g packet 17 g ORAL DAILY pantoprazole DR 40 mg tab(s) (PROTONIX) 40 mg ORAL DAILY acetaminophen 650 mg tab(s) (TYLENOL) 650 mg ORAL q 6 H PRN sevelamer carbonate 2,400 mg tab(s) (RENVELA) 2,400 mg ORAL TID w MEALS melatonin 9 mg tab(s) 9 mg ORAL DAILY (8 PM) piperacillin-tazobactam iv piggyback 3.375 g in dextrose (iso-osmotic) 50 mL (ZOSYN) 3.375 g INTRAVENOUS q 12 H calcitriol 1.5 mcg cap(s) (ROCALTROL) 1.5 mcg ORAL MO-WE-FR HYDROmorphone 1 mg tab(s) (DILAUDID) 1 mg ORAL q 6 H PRN midodrine 20 mg tab(s) (PROAMATINE) 20 mg ORAL PRN DIALYSIS [START ON 10/18/2024] Darbepoetin Osito In Polysorbat 60 mcg injection (ARANESP) 60 mcg SUBCUTANEOUS q MON Allergies As of Date: 10/11/2024 Allergen Noted Reaction GABAPENTIN 08/09/2021 Unknown and Other: See Comments TRAZODONE 10/11/2024 Other: See Comments Fully Assessed 10/11/2024 COMPLETE REVIEW OF SYSTEMS: Review of Systems HENT: Negative for trouble swallowing. Cardiovascular: Negative for chest pain and leg swelling. Gastrointestinal: Negative for nausea, vomiting and abdominal pain. Musculoskeletal: Negative for myalgias and muscle weakness. Neurological: Negative for dizziness and headaches. Endo/Heme/Allergies: Negative for cold intolerance when others are comfortable and hot flashes. Objective PHYSICAL EXAM: Physical Exam Performed: Physical Exam Vitals reviewed. Constitutional: General: He is not in acute distress. Appearance: He is not ill-appearing. HENT: Head: Normocephalic and atraumatic. Eyes: General: No scleral icterus. Pulmonary: Effort: Pulmonary effort is normal. No respiratory distress. Chest: Comments: Periareolar wounds again with superficial erosion and overlying fibrinous debris, no purulent discharge or fluctuance noted Abdominal: General: There is no distension. Palpations: Abdomen is soft. Tenderness: There is abdominal tenderness (around abdominal wound). Comments: Two lower quadrant abdominal wounds - do not appear pressure related, superficial erosion of epidermis with fibrinous layer overlying the wound. No purulence or fluctuance noted Neurological: Mental Status: He is alert. BP 133/62 Pulse 80 Temp (Src) 97.9 (Axillary) Resp 20 Ht 5' 9.685 (1.77m) Wt 249 lb 1.9 oz (113.0kg) SpO2 99% BMI 36.07 kg/(m2). O2 Therapy: BiLevel Positive Airway Pressure, Liters: 2 DATA: Labs: Recent Labs 10/13/24 0352 10/12/24 1013 10/12/24 0848 10/12/24 0531 NA 139 137 -- 137 K 4.7 5.5* -- 6.2* CHLOR 95* 94* -- 94* CO2 26 17* -- 19* BUN 34* 72* -- 72* CREAT 7.48* 11.98* -- 12.12* GLUC 111* 89 -- 79 ANION 18* 26* -- 24* CA 8.7 8.6 -- 9.0 ALB -- -- -- 3.9 AST -- -- -- 16 ALT -- -- -- 13 ALKPHOS -- -- -- 179* TBILI -- -- -- 0.3 WBC 5.25 -- -- 6.07 HB 8.0* -- -- 8.4* HCT 26.0* -- -- 27.4* PLT 270 -- -- 248 LACT -- -- -- 1.5 INR -- -- 1.2 1.2 Diagnostic tests reviewed for today's visit: Most recent labs and imaging results. 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 - no acute surgical intervention for superficial wounds on chest and abdomen - defer care to wound care with enzymatic debridement - if pt allows examination of back wound which requires further eval will be happy to assist - care per primary - plastic surgery will sign off, please call with questions - Discussed with attending Dr. Parker SIGNATURE: Ab Siegel DO PATIENT NAME: Elia Weston DATE: October 14, 2024 TIME: 7:34 AM Pager: [phone] Attending note: I agree with the resident's findings and plan as documented and have discussed the management of the patient's care with the resident. Diego Parker MD 10/14/24 7:42 AM BAS METAB 2000 PNL SERPL Collected: 6:57 AM Status: F Source: [facility] Order Comment: Specimen Type : BLOOD SPECIMEN Ordering Facility: [facility] Address: [address] [place] [address] TYPE CODE TESTS RESULT OUT OF RANGE REFERENCE UNITS LAB 2345-7(LOINC) Glucose SerPl-mCnc 75 74-99 mg/dL Result Comment: The [place] Diabetes Association (ADA) provides guidance for cutoff values for fasting glucose and random glucose. The ADA defines fasting as no caloric intake for at least 8 hours. Fasting plasma glucose results between 100 to 125 mg/dL indicate increased risk for diabetes (prediabetes). Fasting plasma glucose results greater than or equal to 126 mg/dL meet the criteria for diagnosis of diabetes. In the absence of unequivocal hyperglycemia, results should be confirmed by repeat testing. In a patient with classic symptoms of hyperglycemia or hyperglycemic crisis, random plasma glucose results greater than or equal to 200 mg/dL meet the criteria for diagnosis of diabetes. Reference: Standards of Medical Care in Diabetes 2016, [place] Diabetes Association. Diabetes Care. 2016.39(Suppl 1). LAB 3094-0(LOINC) BUN SerPl-mCnc 20 9-24 mg/ dL LAB 2160-0(LOINC) Creat SerPl-mCnc 6.22 High 0.73-1.22 mg/dL LAB 2951-2(LOINC) Sodium SerPl-sCnc 137 136-144 mmol/L LAB 2823-3(LOINC) Potassium SerPl-sCnc 4.7 3.7-5.1 mmol/L LAB 2075-0(LOINC) Chloride SerPl-sCnc 93 Low 98-107 mmol/L LAB 2028-9(LOINC) CO2 SerPl-sCnc 26 22-30 mmo l/L LAB 12210-8(LOINC) Anion Gap SerPl-sCnc 18 High 8-15 mmol/L LAB 03712-3(LOINC) Calcium SerPl-mCnc 8.9 8.5-10.2 mg/dL LAB 97346-2(LOINC) Creatinine + eGFR Pnl SerPlBld 11 Low >=60 mL/min/1 .73m??? Result Comment: Estimated Gl omerular Filtration Rate (eGFR) is calculated using the 2020 CKD-EPI creatinine equation. This equation utilizes serum creatinine, sex, and age as parameters. The creatinine assay has traceable calibration to isotope dilution-mass spectrometry. Refer to KDIGO guidelines for clinical interpretation. In patients with unstable renal function, e.g. those with acute kidney injury, the eGFR may not accurately reflect actual GFR. Performed By: #### 47221-1 # ### [facility] CLIA [id number] [address] [place] [address] [place] [facility] CBC PNL BLD AUTO Collected: 5 6:57 AM Status: F Source: [facility] Order Comment: Specimen Type : BLOOD SPECIMEN Ordering Facility: [facility] Address: [address] [place] [address] TYPE CODE TESTS RESULT OUT OF RANGE REFERENCE UNITS LAB 6690-2(LOINC) WBC # Bld Auto 5.28 3.70-11.00 k/uL LAB 789-8(LOINC) RBC # Bld Auto 3.02 Low 4.20-6.00 m/uL LAB 718-7(LOINC) Hgb Bld-mCnc 8.3 Low 13.0-17.0 g/dL LAB 4544-3(LOINC) Hct VFr Bld Auto 27.9 Low 39.0-51.0 % LAB 787-2(LOINC) MCV RBC Auto 92.4 80.0-100.0 fL LAB 785-6([facility]) MCH RBC Qn Auto 27.5 26.0-34.0 pg LAB 786-4([facility]) MCHC RBC Auto-mCnc 29.7 Low 30.5-36.0 g/dL LAB 03589-5([facility]) RDW RBC-Rto 18.4 High 11.5-15.0 % LAB 777-3([facility]) Platelet # Bld Auto 262 150-400 k/uL LAB 89253-2([facility]) PMV Bld Auto 10.9 9.0-12.7 fL LAB 771-6([facility]) nRBC # Bld Auto <0.01 <0.01 k/uL Performed By: #### 78984-3 # ### [facility] CLIA [id number] [address] [place] [address] [place] PTT, ANTICOAGULANT THERAPY Collected: 0 10/14/2024 6:57 AM Status: F Source: [facility] Order Comment: Specimen Type : BLOOD SPECIMEN Ordering Facility: [facility] Address: [address] [place] [address] TYPE CODE TESTS RESULT OUT OF RANGE REFERENCE UNITS LAB 12630-4([facility]) aPTT PPP 75.8 High 23.0-32.4 sec Performed By: #### 34991-9, PTTAC #### [facility] CLIA [id number] [address] [place] [address] [place] PT PNL PPP Collected: 10/14/2024 6:57 AM Status: F Source: [facility] Order Comment: Specimen Type : BLOOD SPECIMEN Ordering Facility: [facility] Address: [address] [place] [address] TYPE CODE TESTS RESULT OUT OF RANGE REFERENCE UNITS LAB 5902-2([facility]) Prothrombin time 14.1 High 9.7-13.0 sec LAB 6301-6([facility]) INR PPP 1.3 0.9-1.3 Result Comment: Vitamin K An tagonist (VKA) Therapeutic Range: INR 2 to 3 (Target INR of 2.5) Note: For patients treated with VKA drugs, such as warfarin, the [place] College [employer]icians 2012 Guideline recommends a therapeutic INR range of 2 to 3 (target INR of 2.5). This recommendation includes high-risk patients with antiphospholipid syndrome with previous arterial or venous thromboembolism, current-generation mechanical or bioprosthetic aortic heart valve replacement. Note: Patients with mechanical aortic valve replacement and additional risk factors for thromboembolic events (atrial fibrillation, previous thromboembolism, LV dysfunction, hypercoagulable conditions) or an older generation mechanical AVR (i.e., ball in-Cage) or any mechanical MVR should have a INR therapeutic range of 2.5 to 3.5 (target INR of 3). Guyatt GH, et al. Chest 2012, 141:7S-47S Kevin RA, et al. [facility] 2017, 70: 252-289 Performed By: #### 90350-3, PTTAC #### [facility] CLIA [id number] [address] [place] [address] [place] PTT, ANTICOAGULANT THERAPY Collected: 0 10/13/2024 11:13 PM Status: F Source: [facility] Order Comment: Specimen Type : BLOOD SPECIMEN Ordering Facility: [facility] Address: [address] [place] [address] TYPE CODE TESTS RESULT OUT OF RANGE REFERENCE UNITS LAB 12226-1(LOINC) aPTT PPP 60.9 High 23.0-32.4 sec Performed By: #### PTTAC ### # [facility] CLIA [id number] [address] [place] [address] [place] PROGRESS Observed: 10/13/2024 8:50 PM Status: COMPLETED Source: [facility] HNO ID: [id number] Author: PACO GARDUNO MD Service: General Internal Medicine Author Type: Physician Type: Progress Notes Filed: 10/13/2024 21:35 Note Text: DEPARTMENT OF HOSPITAL MEDICINE PROGRESS NOTE SERVICE DATE: 10/13/2024 SERVICE TIME: 8:50 PM Hospital Medicine/Primary Attending: Paco Garduno MD NIGHT AND WEEKEND COVERAGE: [facility] COVERAGE: Days: [phone], please page Paco Garduno for patient issues. Nights: [phone], please page Team GIM 1: G/H 8th floor: [address]250; Non 8th floor [address] Subjective INTERVAL HPI: Oxycodone not providing adequate pain control, patient requested to switch oxycodone to alternative medication. He was not sure about the plan regarding right IJ tunneled catheter which was apparently placed at . Apparently there was a plan to place a stent but he is not sure of details. Main reason for coming to hospital was poor pain control of abdominal and chest wounds. Denied fever or chills. Current Facility-Administered Medications Medication Dose Route Frequency NaCl 0.9% iv flush bag 20 mL INTRAVENOUS PRN dextrose 15 gram/32 mL 15 g (TRUEPLUS) 15 g ORAL PRN Or glucagon 1 mg injection 1 mg INTRAMUSCULAR PRN Or dextrose 10% iv bolus 12.5 g INTRAVENOUS PRN heparin iv infusion 25,000 units in NaCl 0.45% 250 mL STANDARD NOMOGRAM 0-3,000 Units/hr INTRAVENOUS CONTINUOUS And heparin RATE CHANGE bolus 1,000-10,000 Units for subtherapeutic PTTAC results 1,000-10,000 Units INTRAVENOUS PRN midodrine 20 mg tab(s) (PROAMATINE) 20 mg ORAL q 8 H warfarin 5 mg tab(s) (COUMADIN) 5 mg ORAL DAILY cinacalcet 90 mg tab(s) (SENSIPAR) 90 mg ORAL DAILY polyethylene glycol 3350 17 g packet 17 g ORAL DAILY pantoprazole DR 40 mg tab(s) (PROTONIX) 40 mg ORAL DAILY acetaminophen 650 mg tab(s) (TYLENOL) 650 mg ORAL q 6 H PRN sevelamer carbonate 2,400 mg tab(s) (RENVELA) 2,400 mg ORAL TID w MEALS melatonin 9 mg tab(s) 9 mg ORAL DAILY (8 PM) piperacillin-tazobactam iv piggyback 3.375 g in dextrose (iso-osmotic) 50 mL (ZOSYN) 3.375 g INTRAVENOUS q 12 H calcitriol 1.5 mcg cap(s) (ROCALTROL) 1.5 mcg ORAL MO-WE- HYDROmorphone 1 mg tab(s) (DILAUDID) 1 mg ORAL q 6 H PRN midodrine 20 mg tab(s) (PROAMATINE) 20 mg ORAL PRN DIALYSIS [START ON 10/18/2024] Darbepoetin Osito In Polysorbat 60 mcg injection (ARANESP) 60 mcg SUBCUTANEOUS q MON Objective PHYSICAL EXAM: BP 96/45 Pulse 97 Temp (Src) 98.4 (Oral) Resp 15 Ht 5' 9.685 (1.77m) Wt 249 lb 1.9 oz (113.0kg) SpO2 100% BMI 36.07 kg/(m2). O2 Therapy: Room Air General: Appeared comfortable in bed. HEENT:oral cavity moist,no thrush. Heart:Normal S1,S2.No murmur.No JVD Lungs:Good bilateral air entry.No wheezing or crackles. Right IJ tunneled single-lumen catheter noted. Abdomen:Soft,non-distended and non tender.No organomegaly.Normal bowel sounds. Extremities:No edema in lower extremities. Left femoral vein tunneled dialysis catheter noted. Lines, Drains, and Airways Line Duration Dialysis / Apheresis Double Lumen 10/05/24 External Facility Tunneled Left Femoral 8 days Peripheral 10/12/24 0530 [facility] Short Right Forearm 20 Gauge 1 day Peripheral 10/12/24 0951 Left Forearm 22 Gauge 1 day DATA: Diagnostic tests reviewed for today's visit: Most recent labs Most recent imaging Assessment/Plan Problem List Assessment AND Plan Dialysis patient ([facility]) ESRD (end stage renal disease) on dialysis ([facility]) HTN (hypertension) YEIMY (obstructive sleep apnea) 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 Personal history of DVT (deep vein thrombosis) PAF (paroxysmal atrial fibrillation) ([facility]) History of stroke Hypotension, chronic Chronic pain syndrome HOSPITAL COURSE: Elia Weston is a 44 year old male with h/o atrial fibrillation and severe mitral stenosis s/p mitral valve replacement with On-x valve, Maze procedure and RADHA clip on 08/21/2021, currently on Coumadin, ESRD on IHD via left femoral vein TDC on MWF([facility] ), 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 He also expressed a poor pain control on oxycodone. Patient follows with pain management as outpatient for pain associated with chest and abdominal wounds. He currently takes oxycodone 10 mg every 8 hours. Denied fevers or foul-smelling discharge from both wounds. Receiving wound care at home. Assessment/plan: 1. Chest and abdominal wounds: Chest ulcerations started few months ago but abdominal wall ulcerations are chronic which have been bothering him for few years. Abdominal wounds are presumed to be due to skin breakdown with underlying abdominal wall varices which developed due to central venous stenosis and dilatation of inferior epigastric vein.Patient had several admissions to outside hospital in last 2 years with infection of abdominal wounds. He also has history of hemorrhagic shock due to bleeding from abdominal wall varices. CTA abdomen and chest in past showed extensive body wall collaterals. Noted patient underwent biopsy of right lower back wound on 06/27/2023 which showed fibrosis and vascular ectasia. ESRD patients are at risk of calciphylaxis which are painful lesions, typically start as painful lumps but above biopsy results are not consistent with calciphylaxis. Also imaging studies have confirmed extensive collaterals in abdominal and chest ramirez. Will discuss with dermatology tomorrow to discuss about repeating skin biopsy of chest wall lesions in case he developed new pathology/calciphylaxis. Discontinued oxycodone as pain is poorly controlled. Ordered Dilaudid p.o. Consulted infectious disease, discussed with Dr. Davis -no concern for infection of chest wall wounds but abdominal wall wounds need to be reexamined tomorrow. Patient declined examination of abdominal wall wounds today due to severe pain with dressing removal. Wound care and plastic surgery consulted, awaiting evaluation Blood cultures from 10/12-no growth. Continue Zosyn for now. 2. Atrial fibrillation and severe mitral stenosis s/p mitral valve replacement with On-x valve, Maze procedure and RADHA clip on 08/21/2021. EKG on admission-normal sinus rhythm. Patient said he was compliant with Coumadin but INR was 1.2 on admission. Currently on heparin gtt + Coumadin 5 mg daily. 3. ESRD on hemodialysis via left femoral vein TDC on [facility] 4. 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 Nephrology helping with dialysis needs. Will discuss with IR tomorrow about removal of right IJ tunneled line Chronic problems include 5. Anemia of ESRD -Hb at baseline(8.0-8.5) 6. GERD -continue pantoprazole 7. Obesity 8. YEIMY on CPAP 9. Secondary hyperparathyroidism -continue calcitriol, Cinacalcet, sevelamer Medication and Non-Pharmacologic VTE Prophylaxis/Anticoagulants Anticoagulant AND Antiplatelet Medications (From admission, onward) Start Dose Route Frequency Last Action Ordered Stop 10/12/24 1130 warfarin 5 mg tab(s) (COUMADIN) 5 mg ORAL DAILY Given, 10/13 1328 10/12/24 1110 -- 10/12/24 0800 heparin iv infusion 25,000 units in NaCl 0.45% 250 mL STANDARD NOMOGRAM (Heparin Infusion + Bolus for Subtherapeutic PTTAC) 0-30 mL/hr Placed in And Linked Group 0-3,000 Units/hr INTRAVENOUS CONTINUOUS Rate/Dose Calculated - Heparin, 10/13 1714 10/12/24 0740 -- 10/12/24 1111 activity - mobilize patient (nj,ms) VTE Prophylaxis: VTE prophylaxis appropriate Disposition: To be determined Plan of care discussed with Provider, RN, Patient SIGNATURE: Paco Garduno MD PATIENT NAME: Elia Weston DATE: October 13, 2024 TIME: 8:50 PM CONSULT Observed: 10/13/2024 7:45 PM Status: COMPLETED Source: [facility] ID: [id number] Author: AVIS LUNDY MD Service: Dermatology Author Type: Physician Type: Consults Filed: 10/13/2024 21:39 Note Text: DERMATOLOGY INPATIENT CONSULT HISTORY AND PHYSICAL Patient Name: Elia Weston Date of Evaluation: October 13, 2024 Admission Date: 10/12/2024 Requesting Service: Infectious Disease Chief Complaint: Skin ulcerations HPI: Elia Weston is a 44 year old male patient with a past medical history of ESRD on iHD MWF, HTN, Afib s/p MV replacement (on coumadin), secondary hyperparathyroidism, 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 Patient found to be hyperkalemic and was admitted for further workup and management. Dermatology was consulted by ID for multiple ulcerations. Patient reports severe pain at the site of the ulcerations. Reports ulcers have been ongoing for years. Has an ulcer on the R chest, L abdomen and L mid back. Denies fevers, chills, SOB. Wounds previously evaluated by dermatology in 2022 and felt to be related to chronic ischemia. PERTINENT ROS: See HPI. PAST DERM HISTORY:chronic skin ulcers Current Facility-Administered Medications Medication Dose Route Frequency HYDROmorphone 1 mg tab(s) (DILAUDID) 1 mg ORAL q 6 H PRN midodrine 20 mg tab(s) (PROAMATINE) 20 mg ORAL PRN DIALYSIS [START ON 10/18/2024] Darbepoetin Os[place] In Polysorbat 60 mcg injection (ARANESP) 60 mcg SUBCUTANEOUS q MON dextrose 15 gram/32 mL 15 g (TRUEPLUS) 15 g ORAL PRN Or glucagon 1 mg injection 1 mg INTRAMUSCULAR PRN Or dextrose 10% iv bolus 12.5 g INTRAVENOUS PRN heparin iv infusion 25,000 units in NaCl 0.45% 250 mL STANDARD NOMOGRAM 0-3,000 Units/hr INTRAVENOUS CONTINUOUS And heparin RATE CHANGE bolus 1,000-10,000 Units for subtherapeutic PTTAC results 1,000-10,000 Units INTRAVENOUS PRN midodrine 20 mg tab(s) (PROAMATINE) 20 mg ORAL q 8 H warfarin 5 mg tab(s) (COUMADIN) 5 mg ORAL DAILY cinacalcet 90 mg tab(s) (SENSIPAR) 90 mg ORAL DAILY polyethylene glycol 3350 17 g packet 17 g ORAL DAILY pantoprazole DR 40 mg tab(s) (PROTONIX) 40 mg ORAL DAILY acetaminophen 650 mg tab(s) (TYLENOL) 650 mg ORAL q 6 H PRN sevelamer carbonate 2,400 mg tab(s) (RENVELA) 2,400 mg ORAL TID w MEALS melatonin 9 mg tab(s) 9 mg ORAL DAILY (8 PM) piperacillin-tazobactam iv piggyback 3.375 g in dextrose (iso-osmotic) 50 mL (ZOSYN) 3.375 g INTRAVENOUS q 12 H calcitriol 1.5 mcg cap(s) (ROCALTROL) 1.5 mcg ORAL -WE- NaCl 0.9% iv flush bag 20 mL INTRAVENOUS PRN PAST MEDICAL HISTORY Diagnosis Date Anemia of chronic disorder Anuria Atrial fibrillation (HCC) 12/02/2018 on Coumadin and Amiodarone BMI 40.0-44.9, adult (HCC) ESRD (end stage renal disease) on dialysis ([facility]) 2005 ESRD from HTN Dialysis M,W,[facility] [phone] Essential hypertension, benign 1998 EKG 09/30 NL. Hearing loss of both ears History of mitral valve stenosis Hx of bacterial endocarditis Hyperparathyroidism due to end stage renal disease on dialysis ([facility]) Kidney disease 2005 ESRD due to HTN; on IHD since 2005 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 and scoliosis h/o this 3 y. Dx by xray. Mechanical complication of arteriovenous fistula surgically created ([facility]) Mechanical complication of dialysis catheter ([facility]) Mitral valve disease Morbid obesity ([facility]) MS (mitral stenosis) 10/08/2018 Transesophageal US YEIMY on CPAP Paroxysmal atrial fibrillation ([facility]) PE (pulmonary thromboembolism) ([facility]) Pelvic mass Pseudoaneurysm of AV hemodialysis fistula ([facility]) Wound of right side of back from friction/rubbing of jacket, goes to wound care center in [place] FAMILY HISTORY: Unknown family history of skin disease. Social History Tobacco Use Smoking status: Never Smokeless tobacco: Never Vaping Use Vaping status: Never Used Substance Use Topics Alcohol use: No Drug use: No ALLERGIES: ALLERGIES Allergen Reactions Gabapentin Unknown, Other: See Comments Trazodone Other: See Comments Fidgety PHYSICAL EXAM BP 107/76 Pulse 91 Temp 36.5 ?C (97.7 ?F) (Oral) Resp 19 Ht 177 cm (5' 9.69) Wt 113 kg (249 lb 1.9 oz) SpO2 99% BMI 36.07 kg/m? Skin type: GEN: age-appropriate male and pleasant Skin examination was performed of the chest, abdomen, back, BUE and was pertinent for: - L chest, R abdomen, L back with round to ovoid ulceration with white base - Exam limited by patient pain DATA: IMAGING: No pertinent imaging LABS: Recent Labs 10/13/24 1552 10/13/24 0751 10/13/24 0352 10/13/24 0102 10/12/24 1501 10/12/24 1013 10/12/24 0848 10/12/24 0531 WBC -- -- 5.25 -- -- -- -- 6.07 HB -- -- 8.0* -- -- -- -- 8.4* HCT -- -- 26.0* -- -- -- -- 27.4* PLT -- -- 270 -- -- -- -- 248 INR -- -- -- -- -- -- 1.2 1.2 APTT 47.9* 50.5* -- 42.2* < > -- -- 32.8* NA -- -- 139 -- -- 137 -- 137 K -- -- 4.7 -- -- 5.5* -- 6.2* CHLOR -- -- 95* -- -- 94* -- 94* CO2 -- -- 26 -- -- 17* -- 19* BUN -- -- 34* -- -- 72* -- 72* CREAT -- -- 7.48* -- -- 11.98* -- 12.12* GLUC -- -- 111* -- -- 89 -- 79 CA -- -- 8.7 -- -- 8.6 -- 9.0 < > = values in this interval not displayed. BIOPSY: No results found for: SURGPATH FINAL DIAGNOSIS Skin, right lower back, punch biopsy: - Ulcer with dermal fibrosis, vascular ectasia, and reactive vascular proliferation (see comment). AF/LX/rw 06/27/2023 Diagnosis Comment Histologic sections demonstrate a focally ulcerated epidermis. The adjacent intact epidermis demonstrates reactive hyperplasia. Within the dermis, there is fibrosis and an interstitial proliferation of mononuclear cells associated with a chronic lymphohistiocytic infiltrate. Eosinophils are not readily identified. Within the mid dermis, there is a single prominently dilated vessel lined by bland-appearing endothelial cells. To further characterize the dilated vessel, immunohistochemical stains were performed on block A1 at the [facility] and compared to appropriate controls. A significant percentage of dermal interstitial cells, and endothelial cells lining the prominently dilated vessel, are positive for ERG and are negative for D2-40. Clinical photos and history are reviewed. Overall, the histologic features are those of ulcer with dermal fibrosis, vascular ectasia, and reactive vascular proliferation. These histologic features are nonspecific. In the appropriate clinical setting, an ulcer related to chronic ischemia could be considered. Histologic features suggestive of pyoderma gangrenosum are not identified. Clinical correlation is recommended. 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 Dermatology was consulted by ID for multiple ulcerations. Previous skin biopsy revealed ulcer with dermal fibrosis, vascular ectasia, and reactive vascular proliferation - overall nonspecific findings but could be related to chronic ischemia given patient's history and clinical morphology. Differential includes wounds secondary to chronic ischemia vs infectious (given the worsening pain, blood cultures NGTD). Do not favor pyoderma gangrenosum or calciphylaxis given clinical appearance however cannot be entirely ruled out. Recommend skin biopsy for CÉSAR and tissue culture for further evaluation since last biopsy over a year ago. Patient will think about potential skin biopsies overnight. PLAN: - Will revisit potential skin biopsy for CÉSAR and tissue culture with patient tomorrow - Continue wound care with Xeroform or Vaseline gauze followed by ABD pad to ulcerations - Follow up blood cultures - Caution with debridement and/or skin grafting until underlying etiology determined given potential compromised vasculature Patient seen and discussed with attending printed circuit board assembler, Dr. Lundy Will follow Taylor Lackey MD Dermatology, PGY-4 October 13, 2024 7:45 PM Please use consult pager [phone], Mon-Fri 8am-5pm. Please call adzing and boring machine operator for on-call resident/pager during all other hours. Attending Note: I evaluated the patient and personally participated in the mendoza components of this encounter. I agree with the resident/student's findings and plan as documented and have discussed the case and management of the patient's care with the resident/student. The note was annotated by me as needed to reflect my direct input. Signature: Avis Lundy MD Date: 10/13/2024 Time: 9:39 PM PLAN OF CARE Observed: 10/13/2024 5:36 PM Status: COMPLETED Source: [facility] HNO ID: [id number] Author: JENNY TINAJERO RPh Service: Pharmacy Author Type: Pharmacist Type: Plan of Care Filed: 10/13/2024 18:51 Note Text: PHARMACY MEDICATION REVIEW Patient Name: Elia Weston : 1980 The following medications were updated within the POLICE JUDGE medication list: Medications ADDED to POLICE JUDGE medication list Melatonin 10 mg capsules - Take 1 tablet by mouth at bedtime Medications CHANGED on POLICE JUDGE medication list Cinacalcet 30 mg tablets take 3 tablets by mouth daily changed to cinacalcet 60 mg tablets take 2 tablets by mouth daily (confirmed dosing with [facility]) Oxycodone IR 5 mg take 1 tablet by mouth every 4 hours as needed for pain changed to oxycodone IR 10 mg take 1 tablet by mouth every 8 hours as needed for pain (confirmed dosing with [facility]) Medications REMOVED from POLICE JUDGE medication list bismuth tribrom-petrolatum 5 X 9 Bndg PROTONIX 40 mg tablet -Take 1 tablet by mouth once daily. senna 8.6 mg Tab - Take 1 tablet by mouth two times a day. traZODone 100 mg tablet - Take 50 mg by mouth daily at bedtime. (patient reports experiencing side effects to the medication such as feeling fidgety) Additional comments: Patient able to recall medications, Statement matches Pharmacy records The below information represents the best possible medication history: Yes Medication history completed by: Location And Measurement Technician: Nancy Meek Source of history: Patient: Reliability of source: Appears reliable, clearly identified: Medication name, Medication dose, Medication route, Medication frequency, Timing of last dose, and Indications, [facility] records, and Care Everywhere records and [facility] and [facility] Medication nonadherence identified: No barriers noted Reconciliation completed: Yes Completed by: Jenny Tinajero RPh All POLICE JUDGE medications addressed by LIP. Will discuss restarting renal multivitamin. Oxycodone currently on hold and replaced with hydromorphone. Patient interested in Bedside Delivery Services or using [facility] OP Pharmacy at discharge? Yes. Discharge Pharmacy Updated Preferred outpatient pharmacy: [facility] [address] [place] [phone] [address] - [phone] [facility] Allergies: Gabapentin Unknown, Other: See Comments Trazodone Other: See Comments Comment:Fidgety Prior to Admission Medications Prescriptions Last Dose Informant Patient Reported? Taking? B Complex-Vitamin C-Folic Acid (JOHNSON-BRENDA) 0.8 mg tab 10/11/2024 Yes Yes Sig: Take 1 tablet by mouth once daily. Blood Pressure Test Kit-Large (QUICK RESPONSE BP MONITOR) Unknown No No Si Each once daily. Cinacalcet HCl (SENSIPAR) 60 mg tablet Yes Yes Sig: Take 120 mg by mouth once daily. MEDICATION, NON-DATABASE Unknown No No Sig: Apply 1 Each to affected area once daily. Self adhesive 5x9 inch abd pad/dressing VELPHORO 500 mg chew Yes Yes Sig: Crush or chew and swallow 2 tablets 3 times a day with meals WALKER ROLLATOR SEAT WITH 6 WHEELS - RED Unknown No No Sig: . melatonin 10 mg cap Yes Yes Sig: Take 1 capsule by mouth daily at bedtime. midodrine (PROAMATINE) 10 mg tablet No Yes Sig: Take 2 tablets by mouth every 8 hours. oxyCODONE IR (ROXICODONE) 10 mg tab 10/11/2024 Yes Yes Sig: Take 10 mg by mouth every 8 hours as needed for pain. polyethylene glycol 3350 (MIRALAX) 17 gram packet No Yes Sig: Take 1 Packet by mouth once daily. Dissolve dose in 4 - 8 ounces of liquid and take as directed. warfarin (COUMADIN) 5 mg tablet No Yes Sig: Take 1 tablet by mouth once daily. Facility-Administered Medications: None Nancy Meek 10/13/2024 Medication history has been completed by a pharmacy technician infusion and reviewed by a pharmacist. Any additions/clarifications are in italics. Jenny Tinajero, PharmD [id number] PTT, ANTICOAGULANT THERAPY Collected: 0 10/13/2024 3:52 PM Status: F Source: [facility] Order Comment: Specimen Type : BLOOD SPECIMEN Ordering Facility: [facility] Address: [address] [place] [address] TYPE CODE TESTS RESULT OUT OF RANGE REFERENCE UNITS LAB 56119-0(LOINC) aPTT PPP 47.9 High 23.0-32.4 sec Performed By: #### PTTAC ### # [facility] CLIA [id number] [address] [place] [address] [place] [address] [place] CASE MGT INIT MUNA Observed: 10/13/2024 2:30 PM Status: COMPLETED Source: [facility] HNO ID: [id number] Author: EILEEN PERALTA RN Service: Care Management Author Type: Registered Nurse Type: Care Mgt Initial Assessment Filed: 10/13/2024 16:12 Note Text: CARE MANAGEMENT: ASSESSMENT AND DISCHARGE PLAN SERVICE DATE: October 13, 2024 SERVICE TIME: 2:30 PM PCP: No primary care provider on file. Primary Contact: Extended Emergency Contact Information Primary Emergency Contact: Irma Weston Address: [facility] [address] [place] [id number] [place] [address] Mobile Relation: Spouse Secondary Emergency Contact: Pablo Weston Mobile Relation: Mother Admission Status: Inpatient [facility] O Discharge Planning requested by: Per Department Practice Potential Transition Plans To Be Determined Advance Directives Current Living Arrangements and Support Lives with: Spouse/significant other, Children Type of Residence: Private Residence (House) Support: Family members How do you manage to accomplish the following: Independent: Ambulation;Bathe/Shower;Dress;Meals/Meal Prep;Going to the bathroom;Medication Management;Transportation to appointments/community Current Services/Equipment Current Post-Acute Service(s): DME Current DME Type: Continuous Positive Airway Pressure Discharge Planning Patient Goal(s): General wellness, Increase strength [place] of Choice Explained: [place] of Choice Given: No Reason Not Given: No placements necessary Are you interested in bedside delivery of your medications? Yes Discharge Planning Participant(s): Patient Patient/Family Comments: Caregiver Assessment: Caregiver is ready, willing and able to meet the patient's needs as recommended by the inter-professional team: No Transport at Discharge: Transportation Arrangements: Car Needs Prior to Discharge: Needs Prior to Discharge: To Be Determined (Medical clearance) Post-Acute Discharge Plan: Per 10/13 nephrology progress note: 44 year old male...presenting with complaint of painful chronic chest wound and missed dialysis.. Patient is not medically stable for hospital discharge at this time. CM met with patient at bedside and discussed discharge planning needs. Patient inquired on acute rehab placement for therapy and nursing care, and was informed this can be further discussed when supporting clinicals and evaluations are available . 6 Clicks is 21, currently on room air. Independent for ADL's using no DME for mobility, uses CPAP prn. Lives with spouse and children. Patient states he drove himself here, is parked here, and will transport himself at discharge. CM to follow. SIGNATURE: Eileen Peralta RN PATIENT NAME: Elia Weston DATE: October 13, 2024 TIME: 2:30 PM CONSULT PROG Observed: 10/13/2024 1:28 PM Status: COMPLETED Source: [facility] HNO ID: [id number] Author: CAMILO NORTON PA-C Service: Nephrology Author Type: Physician Teacher Tutor Type: Consult Progress Note Filed: 10/13/2024 13:32 Note Text: Department of Kidney Medicine Medical Special[facility] [place] [facility] NEPHROLOGY CONSULT SERVICE PROGRESS NOTE INTERVAL HISTORY: - HD yesterday 4.1L UF over 4hr, URR 65% - target UF 3-4L today heparin, Last Rate: 2,000 Units/hr (10/13/24 0947) MEDICATIONS: Current Facility-Administered Medications Medication Dose Route Frequency NaCl 0.9% iv flush bag 20 mL INTRAVENOUS PRN dextrose 15 gram/32 mL 15 g (TRUEPLUS) 15 g ORAL PRN Or glucagon 1 mg injection 1 mg INTRAMUSCULAR PRN Or dextrose 10% iv bolus 12.5 g INTRAVENOUS PRN heparin iv infusion 25,000 units in NaCl 0.45% 250 mL STANDARD NOMOGRAM 0-3,000 Units/hr INTRAVENOUS CONTINUOUS And heparin RATE CHANGE bolus 1,000-10,000 Units for subtherapeutic PTTAC results 1,000-10,000 Units INTRAVENOUS PRN midodrine 20 mg tab(s) (PROAMATINE) 20 mg ORAL q 8 H warfarin 5 mg tab(s) (COUMADIN) 5 mg ORAL DAILY cinacalcet 90 mg tab(s) (SENSIPAR) 90 mg ORAL DAILY polyethylene glycol 3350 17 g packet 17 g ORAL DAILY pantoprazole DR 40 mg tab(s) (PROTONIX) 40 mg ORAL DAILY acetaminophen 650 mg tab(s) (TYLENOL) 650 mg ORAL q 6 H PRN sevelamer carbonate 2,400 mg tab(s) (RENVELA) 2,400 mg ORAL TID w MEALS melatonin 9 mg tab(s) 9 mg ORAL DAILY (8 PM) piperacillin-tazobactam iv piggyback 3.375 g in dextrose (iso-osmotic) 50 mL (ZOSYN) 3.375 g INTRAVENOUS q 12 H calcitriol 1.5 mcg cap(s) (ROCALTROL) 1.5 mcg ORAL MO-WE- HYDROmorphone 1 mg tab(s) (DILAUDID) 1 mg ORAL q 6 H PRN ALLERGIES: Gabapentin and Trazodone PHYSICAL EXAM: BP 113/72 Pulse 98 Temp 36.9 ?C (98.4 ?F) (Oral) Resp 16 Ht 177 cm (5' 9.69) Wt 113 kg (249 lb 1.9 oz) SpO2 98% BMI 36.07 kg/m? Intake/Output Summary (Last 24 hours) at 10/13/2024 1328 Last data filed at 10/13/2024 1158 Gross per 24 hour Intake -- Output 6800 ml Net -6800 ml GENERAL: adult male, alert, in no acute distress, cooperative, lying in bed SKIN: Skin color, texture, turgor normal. No rashes or lesions. HEENT: normocephalic, atraumatic NECK: no JVD, masses or bruits LUNGS: clear to auscultation. Good diaphragmatic excursion and normal respiratory effort. CARDIAC: RRR S1S2 ABDOMEN: soft, non-tender, non-distended. Normal bowel sounds. GENITOURINARY: no Call catheter EXTREMITIES:++BLE edema, no joint swelling NEURO: AOx3, normal speech, muscle strength grossly intact PSYCH: normal judgement and insight ACCESS: LLE TDC Lines, Drains, and Airways Line Duration Dialysis / Apheresis Double Lumen 10/05/24 External Facility Tunneled Left Femoral 8 days Peripheral 10/12/24 0530 [facility] Short Right Forearm 20 Gauge 1 day Peripheral 10/12/24 0951 Left Forearm 22 Gauge 1 day Labs: Recent Labs 10/13/24 0751 10/13/24 0352 10/13/24 0102 10/12/24 1501 10/12/24 1013 10/12/24 0848 10/12/24 0531 WBC -- 5.25 -- -- -- -- 6.07 HB -- 8.0* -- -- -- -- 8.4* HCT -- 26.0* -- -- -- -- 27.4* PLT -- 270 -- -- -- -- 248 INR -- -- -- -- -- 1.2 1.2 APTT 50.5* -- 42.2* >139.0* -- -- 32.8* NA -- 139 -- -- 137 -- 137 K -- 4.7 -- -- 5.5* -- 6.2* CHLOR -- 95* -- -- 94* -- 94* CO2 -- 26 -- -- 17* -- 19* ANION -- 18* -- -- 26* -- 24* BUN -- 34* -- -- 72* -- 72* CREAT -- 7.48* -- -- 11.98* -- 12.12* GLUC -- 111* -- -- 89 -- 79 CA -- 8.7 -- -- 8.6 -- 9.0 Recent Labs 10/12/24 1747 10/12/24 1404 BUNPR -- 69* BUNPO 24 -- Recent Labs 10/12/24 0531 TPROT 8.5* ALB 3.9 ALT 13 AST 16 ALKPHOS 179* TBILI 0.3 LACT 1.5 ASSESSMENT: 44 year old male with Pmhx of Afib, hx MVR on coumadin, ESRD on HD MWF, hyperparathyroidism, HTN, hx of SVC syndrome, HLD, obesity and YEIMY presenting with complaint of painful chronic chest wound and missed dialysis. He was recently admitted for a dislodged catheter and had femoral TDC 50cm replacement 10/07/24. His last HD was Friday. Admitting labs notable for hyperK and by wt is ~12kg over dry weight. ESRD Hx First HD: 2005 Unit: [facility] Configuration Release Manager: Dr. Melendez Days: EDW: 114kg Access: L Fem TDC SHPT: rocaltrol 1.5mcg TIW, sensipar 60mg daily, PTH 1500 Heparin: 10,000u bolus 2. Electrolytes: hyperK 3. Volume status: hypervolemic 4. Acid-base: AGMA 5. Ca/P/Pth/Bone mineral disease: - Sevelamer with meals. Sensipar daily and Calcitriol on dialysis days -previous punch bx in 2022 was not consistent with calciphylaxis 6. Anemia of CKD below goal, high ferritin PLAN: - HD today 4hr F250, Qb400, UF 3-4L - next session Friday (MWF) - EDW 114kg - will give aranesp - nephrocaps - renvela with meals Consent for DRYWALL SANDER: ESRD Camilo Norton PA-C Department of Kidney Medicine [facility] October 13, 2024 1:28 PM PAGER # [phone] Disclosures: Parts of the current progress note may have been copied from a previous note. FOR AFTER HOUR CONCERNS BETWEEN 5PM - 7AM CONTACT ON-CALL NEPHROLOGY FELLOW [phone] NUTRITION Observed: 10/13/2024 12:47 PM Status: COMPLETED Source: [facility] HNO ID: [id number] Author: EDUARDO MAYNARD RD Service: Nutrition Therapy Author Type: Registered Dietitian Type: Nutrition Filed: 10/13/2024 12:48 Note Text: NUTRITION THERAPY SCREEN NOTE SERVICE DATE: 10/13/2024 SERVICE TIME: 11:00am Care Plan: Continue current diet Refer to: Tractor Driver Teamster to Follow Vitamins and Minerals: Renal vitamin Discharge Recommendations: Diet;Oral Supplements Diet: as tolerated Oral Supplements: high calorie, high protein oral nutrition supplements when PO intake is meeting <75% of estimated energy needs Monitor and Evaluation: Monitor bowel function;Meet greater than 75% of estimated needs;Monitor fluid/electrolyte balance;Monitor labs, I/Os, vital signs, weight Intake History: Nutrition Intake Prior to Admission: Greater than 75% estimated energy needs greater than or equal to 1 month Diet Orders (From admission, onward) Start Ordered 10/12/24 1117 DIET RENAL START NOW Question: Renal Answer: 2400 MG K / 2400 MG NA 10/12/24 1117 Anthropometrics: Height: 177 cm (5' 9.69) Weight: 113 kg (249 lb 1.9 oz) Weight change percentage over time: weight loss is not clinically significant Weight Change: Not clinically significant weight loss MNT Billing: $ Initial Assessment: 1-15 minutes SIGNATURE: Eduardo Maynard RD PATIENT NAME: Elia Weston DATE: October 13, 2024 TIME: 12:47 PM CONSULT Observed: 10/13/2024 12:02 PM Status: COMPLETED Source: [facility] HNO ID: [id number] Author: MINAL DAVIS MD Service: Infectious Disease Author Type: ? Type: Consults Filed: 10/13/2024 21:26 Note Text: Attestation signed by Minal Davis MD at 10/13/2024 9:26 PM ID Staff Addendum I saw and evaluated the patient with the trainee and agree with her history and physical exam, assessment and plan as delineated. Evaluating chronic wounds for superinfection in the context of worsening pain. Afebrile. CRP unremarkable. No leukocytosis. Following blood cultures. Antibiotics as ordered for now. Following. Discussed with primary team and dermatology. Minal Davis MD INFECTIOUS DISEASE INITIAL CONSULT NOTE SERVICE DATE: 10/13/2024 SERVICE TIME: 12:03 REASON FOR CONSULT: Acute on Chronic Chest Wounds Subjective Patient is seen at the request of Paco Hernadez MD for my opinion regarding secondary infection of chronic chest wounds. My final recommendations will be communicated back to the requesting physician by way of copy of this note or shared electronic medical record. 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 Found to be hyperkalemic on work up, now admitted for further work up and management. Per chart review, chest wounds have been bothering patient on and off for years. Biopsy of back wound in 2022 found: Biopsy 2022: Overall, the histologic features are those of ulcer with dermal fibrosis, vascular ectasia, and reactive vascular proliferation. These histologic features are nonspecific. In the appropriate clinical setting, an ulcer related to chronic ischemia could be considered. Histologic features suggestive of pyoderma gangrenosum are not identified. Clinical correlation is recommended. Patient has hx of multiple biopsies that are not consistent with calciphylaxis per chart. Patient currently has one ulcer on right chest, one on left chest. Two on left flank. And one on back. These ulcers are very painful and patient prefers not to disturb them too often given pain. Per patient, the chest ulcers which cause the worst pain have been present for ~3-4 months. These wounds usually start as a small ulceration that enlarges with time. Patient does not recall any scratching, injury, or skin breakage that precipitates these wounds. Blood cultures drawn 10/12 are NGTD. Procal 3.59, CRP 3.4. Patient denies any fever/chills/cough/URI sxs/fatigue. Has not noticed any purulent drainage. It is largely the pain that bothers him. Started on empiric Zosyn. ID was consulted due to c/f secondary infection/cellulitis of ulcers. RECENT TRAVEL: No PETS IN THE HOME: There are dogs in the home PAST MEDICAL HISTORY Diagnosis Date Anemia of chronic disorder Anuria Atrial fibrillation ([facility]) 12/02/2018 on Coumadin and Amiodarone BMI 40.0-44.9, adult ([facility]) ESRD (end stage renal disease) on dialysis ([facility]) 2005 ESRD from HTN Dialysis M,W,[facility] [phone] Essential hypertension, benign 1998 EKG 09/30 NL. Hearing loss of both ears History of mitral valve stenosis Hx of bacterial endocarditis Hyperparathyroidism due to end stage renal disease on dialysis ([facility]) Kidney disease 2005 ESRD due to HTN; on IHD since 2005 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 and scoliosis h/o this 3 y. Dx by xray. Mechanical complication of arteriovenous fistula surgically created ([facility]) Mechanical complication of dialysis catheter ([facility]) Mitral valve disease Morbid obesity ([facility]) MS (mitral stenosis) 10/08/2018 Transesophageal US YEIMY on CPAP Paroxysmal atrial fibrillation ([facility]) PE (pulmonary thromboembolism) ([facility]) Pelvic mass Pseudoaneurysm of AV hemodialysis fistula ([facility]) Wound of right side of back from friction/rubbing of jacket, goes to wound care center in [place] PAST SURGICAL HISTORY Procedure Laterality Date ARTERIOVENOUS FISTULA Left 08/29/2010 CAPSULE ENDOSCOPY 07/01/2023 CARDIOVERSION-ELECTIVE N/A 12/03/2018 200 joules synchronized - successful COLONOSCOPY 07/01/2023 EGD 06/27/2023 HERNIA REPAIR HX PAST SURGICAL HISTORY OF 08/29/2010 dialysis fistula left arm PAST SURGICAL HISTORY OF Right 03/2019 Right leg femoral vein to superficial femoral artery loop graft mid thigh REPAIR CLEFT LIP RMVL LEANN CVC W/O SUBQ PORT/TOBACCO PREVENTION HEALTH EDUCATOR 01/17/2013 SHX CARDIAC RADIOFREQUENCY ABLATION 08/21/2021 s/p Maze procedure SHX MITRAL VALVE REPLACEMENT 08/21/2021 Social History Tobacco Use Smoking status: Never Smokeless tobacco: Never Vaping Use Vaping status: Never Used Substance Use Topics Alcohol use: No Drug use: No FAMILY HISTORY Adopted: Yes Problem Relation Age of Onset None Mother None Father Aneurysm No Family History Immunization History Administered Date(s) Administered hepatitis B (HepB) vaccine, 3-dose series, age 20+ yr (ENGERIX-B, RECOMBIVAX HB) 01/04/2019 influenza (IIV3) vaccine, trivalent, PF (AFLURIA, FLUARIX, FLULAVAL, FLUVIRIN, FLUZONE) 08/17/2014 06/29/2019 influenza (IIV4) vaccine, quadrivalent (AFLURIA, FLULAVAL, FLUZONE) 07/31/2020 influenza vaccine, unspecified formulation 08/17/2012 pneumococcal conjugate (PCV13) vaccine, 13 valent (PREVNAR 13) 10/30/2019 pneumococcal polysaccharide (PPV23) vaccine, 23 valent (PNEUMOVAX 23) 10/07/2015 10/11/2020 Current Facility-Administered Medications Medication Dose Route Frequency dextrose 15 gram/32 mL 15 g (TRUEPLUS) 15 g ORAL PRN Or glucagon 1 mg injection 1 mg INTRAMUSCULAR PRN Or dextrose 10% iv bolus 12.5 g INTRAVENOUS PRN heparin iv infusion 25,000 units in NaCl 0.45% 250 mL STANDARD NOMOGRAM 0-3,000 Units/hr INTRAVENOUS CONTINUOUS And heparin RATE CHANGE bolus 1,000-10,000 Units for subtherapeutic PTTAC results 1,000-10,000 Units INTRAVENOUS PRN midodrine 20 mg tab(s) (PROAMATINE) 20 mg ORAL q 8 H warfarin 5 mg tab(s) (COUMADIN) 5 mg ORAL DAILY cinacalcet 90 mg tab(s) (SENSIPAR) 90 mg ORAL DAILY polyethylene glycol 3350 17 g packet 17 g ORAL DAILY oxyCODONE IR 5 mg tab(s) (ROXICODONE) 5 mg ORAL q [address] 40 mg tab(s) (PROTONIX) 40 mg ORAL DAILY acetaminophen 650 mg tab(s) (TYLENOL) 650 mg ORAL q 6 H PRN sevelamer carbonate 2,400 mg tab(s) (RENVELA) 2,400 mg ORAL TID w MEALS melatonin 9 mg tab(s) 9 mg ORAL DAILY (8 PM) piperacillin-tazobactam iv piggyback 3.375 g in dextrose (iso-osmotic) 50 mL (ZOSYN) 3.375 g INTRAVENOUS q 12 H calcitriol 1.5 mcg cap(s) (ROCALTROL) 1.5 mcg ORAL MO-WE- NaCl 0.9% iv flush bag 20 mL INTRAVENOUS PRN Active Antimicrobials (From admission, onward) Start Stop 10/12/24 1430 piperacillin-tazobactam iv piggyback 3.375 g in dextrose (iso-osmotic) 50 mL (ZOSYN) 3.375 g, INTRAVENOUS, EVERY 12 HOURS -- ALLERGIES Allergen Reactions Gabapentin Unknown, Other: See Comments Trazodone Other: See Comments Fidgety REVIEW OF SYSTEMS: See HPI GENERAL: Denies fever, chills, night sweats, or changes in weight. HEENT: Negative for frequent or significant headaches. No changes in hearing or vision, no nose bleeds or other nasal problems RESPIRATORY: Denies any cough, dyspnea, or wheezing. CARDIOVASCULAR: Denies any chest pain with exertion or at rest, palpitations, syncope, or edema. GASTROINTESTINAL: Denies any nausea, vomiting, abdominal pain, heartburn, diarrhea or other changes in bowel habit. Denies melena. MUSCULOSKELETAL: Denies any joint swelling, crepitus, joint pain, or loss of range of motion. Denies back pain. NEURO: Denies any headaches, tremors, dizziness, vertigo, memory loss, or confusion. No weakness, numbness or tingling. Objective PHYSICAL EXAM: BP 103/72 Pulse 100 Temp (Src) 98.1 (Oral) Resp 18 Ht 5' 9.685 (1.77m) Wt 249 lb 1.9 oz (113.0kg) SpO2 100% BMI 36.07 kg/(m2). O2 Therapy: Continuous Positive Airway Pressure, Liters: 3 GENERAL APPEARANCE: Patient in no acute distress, well appearing. SKIN: Ulcer in Right upper chest is pink with no purulent drainage. Did not properly visualize ulcer on Left upper chest or flank lesions as patient declined. However surrounding skin is not erythematous and no signs of purulent drainage. HEAD/SINUSES: No significant findings. EYES: PERRLA, EOMI, conjunctivae clear, fundi benign. BACK: Ulcer on lower back is large, appears to be healthy granulation tissue, no purulence or surrounding erythema LUNGS: Normal breath sounds, clear to auscultation, percussion normal, no wheezes, or crackles. HEART: Normal PMI, Regular rate/rhythm, normal heart sounds, and no murmurs. ABDOMEN: Obese and abdomen, soft, non-tender to palpation, but skin surface is irregular with what appears to be multiple lumps diffusely EXTREMITIES: No edema or tenderness: NEURO: Awake, alert and oriented x3, cranial nerves II-XII grossly intact, reflexes symetrical, normal gait, no involuntary motions. Lines, Drains, and Airways Line Duration Dialysis / Apheresis Double Lumen 10/05/24 External Facility Tunneled Left Femoral 8 days Peripheral 10/12/24 0530 [facility] Short Right Forearm 20 Gauge 1 day Peripheral 10/12/24 0951 Left Forearm 22 Gauge 1 day DATA: Diagnostic tests reviewed for today's visit: Most recent labs and imaging results. CBC: Lab Results Component Value Date HB 8.0 10/13/2024 HB 14.1 11/08/2021 HCT 26.0 10/13/2024 HCT 46.5 11/08/2021 WBC 5.25 10/13/2024 WBC 6.92 11/08/2021 AUTODIFF: Lab Results Component Value Date RBC 2.85 10/13/2024 RBC 4.72 11/08/2021 MCV 91.2 10/13/2024 MCV 98.5 11/08/2021 MCH 28.1 10/13/2024 MCH 29.9 11/08/2021 MCHC 30.8 10/13/2024 MCHC 30.3 11/08/2021 RDWCV 18.1 10/13/2024 RDWCV 18.4 11/08/2021 PLT 270 10/13/2024 PLT 194 11/08/2021 MPV 11.0 10/13/2024 MPV 10.7 11/08/2021 NEUTP 66.2 10/12/2024 NEUTP 73.1 08/16/2021 ABSNEUT 4.02 10/12/2024 ABSNEUT 5.46 08/16/2021 LYMPHP 16.5 10/12/2024 LYMPHP 10.2 08/16/2021 ABSLYMPH 1.00 10/12/2024 ABSLYMPH 0.76 08/16/2021 ABSMONO 0.62 10/12/2024 ABSMONO 1.05 08/16/2021 EODINP 5.9 10/12/2024 EODINP 2.1 08/16/2021 ABSEOSIN 0.36 10/12/2024 ABSEOSIN 0.16 08/16/2021 BASOP 0.7 10/12/2024 BASOP 0.5 08/16/2021 ABSBASO 0.04 10/12/2024 ABSBASO 0.04 08/16/2021 UA: Lab Results Component Value Date PH 7.52 09/03/2021 SPGR 1.010 04/03/2007 UGLUC Negative 04/03/2007 UBILI Negative 04/03/2007 UKET Negative 04/03/2007 UHB 1+ 04/03/2007 UPROT 30 04/03/2007 UWBC 0-5 04/03/2007 CMP: Lab Results Component Value Date ALB 3.9 10/12/2024 ALB 4.2 09/27/2021 CA 8.7 10/13/2024 CA 10.5 11/08/2021 TBILI 0.3 10/12/2024 TBILI 0.5 09/27/2021 ALKPHOS 179 10/12/2024 ALKPHOS 107 09/27/2021 AST 16 10/12/2024 AST 26 09/27/2021 GLUC 111 10/13/2024 GLUC 79 11/08/2021 BUN 34 10/13/2024 BUN 32 11/08/2021 CREAT 7.48 10/13/2024 CREAT 10.11 06/29/2023 CREAT 6.11 11/08/2021 NA 139 10/13/2024 NA 141 11/08/2021 K 4.7 10/13/2024 K 4.5 11/08/2021 CHLOR 95 10/13/2024 CHLOR 93 11/08/2021 CO2 26 10/13/2024 CO2 30 11/08/2021 ANION 18 10/13/2024 ANION 18 11/08/2021 ALT 13 10/12/2024 ALT 12 09/27/2021 WSR: Lab Results Component Value Date WSR 130 10/12/2024 Impression/Recommendations Elia Weston is a 44 year old male with PMH of ESRD on iHD MWF, HTN, afib with mitral valve replacement on coumadin, 2ndary hyperparathyroidism, 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 Found to be hyperkalemic, admitted for further workup and management. ID was consulted due to c/f secondary infection of multiple ulcers. Patient's ulcers are unlikely infected. No erythema or purulence observed on bilateral chest and lower back wounds that were observed. Patient deferred to have flank examined. No fever or leukocytosis. CRP is not significantly elevated to suggest infection. Past biopsy of skin lesion is not consistent with calciphylaxis, possible ischemic etiology. Recommendations: #acute on chronic skin ulcers - Low suspicion for infection but ok to keep empiric Zosyn until all wounds can be thoroughly evaluated - recommend Dermatology consult for evaluation of skin lesions - will follow blood cultures ID will follow. Patient seen and staffed with Dr. Davis. Stephanie Bhatti, MS4 Please feel free to call or page us with concerns or questions. Thank you for allowing us to partake in the care of your patient. SIGNATURE: Stephanie Bhatti PATIENT NAME: Elia Weston DATE: October 13, 2024 TIME: 12:03 PM NURSING PROG Observed: 10/13/2024 8:26 AM Status: COMPLETED Source: [facility] HNO ID: [id number] Author: MICHELLE KRUGER, RACHEL Service: ? Author Type: Registered Nurse Type: Nursing Progress Note Filed: 10/13/2024 08:27 Note Text: Patient refusing myself and bedside nurse to complete skin assessment. Patient has known wounds and dressings covering them. Patient would not let us assess the wounds. PLAN OF CARE Observed: 10/13/2024 8:19 AM Status: COMPLETED Source: [facility] HNO ID: [id number] Author: NANCY MEEK, ? Service: Pharmacy Author Type: Anvil Worker Type: Plan of Care Filed: 10/13/2024 08:19 Note Text: Insurance investigation completed Patient has active prescription insurance: Yes - Patient's insurance is in-network with [facility] Insurance loaded into [place]: Yes Test claim was completed to verify insurance is active: Successful Any questions, please reach out to your medication auto accessories installer. PTT, ANTICOAGULANT THERAPY Collected: 0 10/13/2024 7:51 AM Status: F Source: [facility] Comment: Specimen Type : BLOOD SPECIMEN Ordering Facility: [facility] Address: [address] [place] [address] TYPE CODE TESTS RESULT OUT OF RANGE REFERENCE UNITS LAB 19831-7(LOINC) aPTT PPP 50.5 High 23.0-32.4 sec Performed By: #### PTTAC ### # [facility] CLIA [id number] [address] [place] [address] [place] BAS METAB 2000 PNL SERPL Collected: 3:52 AM Status: F Source: [facility] Comment: Specimen Type : BLOOD SPECIMEN Ordering Facility: [facility] Address: [address] [place] [address] TYPE CODE TESTS RESULT OUT OF RANGE REFERENCE UNITS LAB 2345-7(LOINC) Glucose SerPl-mCnc 111 High 74-99 mg/dL Result Comment: The [place] Diabetes Association (ADA) provides guidance for cutoff values for fasting glucose and random glucose. The ADA defines fasting as no caloric intake for at least 8 hours. Fasting plasma glucose results between 100 to 125 mg/dL indicate increased risk for diabetes (prediabetes). Fasting plasma glucose results greater than or equal to 126 mg/dL meet the criteria for diagnosis of diabetes. In the absence of unequivocal hyperglycemia, results should be confirmed by repeat testing. In a patient with classic symptoms of hyperglycemia or hyperglycemic crisis, random plasma glucose results greater than or equal to 200 mg/dL meet the criteria for diagnosis of diabetes. Reference: Standards of Medical Care in Diabetes 2016, [place] Diabetes Association. Diabetes Care. 2016.39(Suppl 1). LAB 3094-0(LOINC) BUN SerPl-mCnc 34 High 9-24 mg/ dL LAB 2160-0(LOINC) Creat SerPl-mCnc 7.48 High 0.73-1.22 mg/dL LAB 2951-2(LOINC) Sodium SerPl-sCnc 139 136-144 mmol/L LAB 2823-3(LOINC) Potassium SerPl-sCnc 4.7 3.7-5.1 mmol/L LAB 2075-0(LOINC) Chloride SerPl-sCnc 95 Low 98-107 mmol/L LAB 2028-9(LOINC) CO2 SerPl-sCnc 26 22-30 mmo l/L LAB 43850-8(LOINC) Anion Gap SerPl-sCnc 18 High 8-15 mmol/L LAB 14813-1(LOINC) Calcium SerPl-mCnc 8.7 8.5-10.2 mg/dL LAB 06138-7(LOINC) Creatinine + eGFR Pnl SerPlBld 9 Low >=60 mL/min/1 .73m??? Result Comment: Estimated Gl omerular Filtration Rate (eGFR) is calculated using the 2020 CKD-EPI creatinine equation. This equation utilizes serum creatinine, sex, and age as parameters. The creatinine assay has traceable calibration to isotope dilution-mass spectrometry. Refer to KDIGO guidelines for clinical interpretation. In patients with unstable renal function, e.g. those with acute kidney injury, the eGFR may not accurately reflect actual GFR. Performed By: #### 43678-3 # ### [facility] CLIA [id number] [address] [place] [address] [place] CBC PNL BLD AUTO Collected: 5 3:52 AM Status: F Source: [facility] Order Comment: Specimen Type : BLOOD SPECIMEN Ordering Facility: [facility] Address: [address] [place] [address] TYPE CODE TESTS RESULT OUT OF RANGE REFERENCE UNITS LAB 6690-2([facility]) WBC # Bld Auto 5.25 3.70-11.00 k/uL LAB 789-8([facility]) RBC # Bld Auto 2.85 Low 4.20-6.00 m/uL LAB 718-7([facility]) Hgb Bld-mCnc 8.0 Low 13.0-17.0 g/dL LAB 4544-3([facility]) Hct VFr Bld Auto 26.0 Low 39.0-51.0 % LAB 787-2([facility]) MCV RBC Auto 91.2 80.0-100.0 fL LAB 785-6([facility]) MCH RBC Qn Auto 28.1 26.0-34.0 pg LAB 786-4([facility]) MCHC RBC Auto-mCnc 30.8 30.5-36.0 g/dL LAB 61766-7([facility]) RDW RBC-Rto 18.1 High 11.5-15.0 % LAB 777-3([facility]) Platelet # Bld Auto 270 150-400 k/uL LAB 35857-0([facility]) PMV Bld Auto 11.0 9.0-12.7 fL LAB 771-6([facility]) nRBC # Bld Auto <0.01 <0.01 k/uL Performed By: #### 79910-4 # ### [facility] CLIA [id number] [address] [place] [address] [place] PTT, ANTICOAGULANT THERAPY Collected: 0 10/13/2024 1:02 AM Status: F Source: [facility] Order Comment: Specimen Type : BLOOD SPECIMEN Ordering Facility: [facility] Address: [address] [place] [address] TYPE CODE TESTS RESULT OUT OF RANGE REFERENCE UNITS LAB 97171-7([facility]) aPTT PPP 42.2 High 23.0-32.4 sec Performed By: #### PTTAC ### # [facility] CLIA [id number] [address] [place] [address] [place] NURSING PROG Observed: 10/12/2024 8:03 PM Status: COMPLETED Source: [facility] HNO ID: [id number] Author: JEFF FARIA RN Service: ? Author Type: Registered Nurse Type: Nursing Progress Note Filed: 10/12/2024 20:04 Note Text: Patient admitted from ED in stable condition, had dialysis before arrival to the unit. Patient oriented to the room and use of call light. BUN P DIALYSIS SERPL-MCNC Collected: 10/12/2024 5:47 PM Status: F Source: [facility] Order Comment: Specimen Type : BLOOD SPECIMEN Ordering Facility: [facility] Address: [address] [place] [address] TYPE CODE TESTS RESULT OUT OF RANGE REFERENCE UNITS LAB 11843-5(LOINC) BUN p dialysis SerPl-mCnc 24 9-24 mg/dL LAB BUNRAT UREA REDUCTION RATIO WITH BUNPR 65 % Performed By: #### 16989-8 # ### [facility] CLIA [id number] [address] [place] [address] [place] PTT, ANTICOAGULANT THERAPY Collected: 0 10/12/2024 3:01 PM Status: F Source: [facility] Order Comment: Specimen Type : BLOOD SPECIMEN Ordering Facility: [facility] Address: [address] [place] [address] TYPE CODE TESTS RESULT OUT OF RANGE REFERENCE UNITS LAB 83082-5(LOINC) aPTT PPP >139.0 High 23.0-32.4 sec Performed By: #### PTTAC ### # [facility] CLIA [id number] [address] [place] [address] [place] CONSULT Observed: 10/12/2024 2:55 PM Status: COMPLETED Source: [facility] HNO ID: [id number] Author: CAMILO NORTON PA-C Service: Nephrology Author Type: Physician Teacher Tutor Type: Consults Filed: 10/12/2024 15:01 Note Text: Department of Kidney Medicine [facility] [place] [facility] NEPHROLOGY CONSULT NOTE Patient Name: Eila Weston Consulting Service: Nephrology Requesting Provider: Tayler West MD Opinion/advice regarding: ESRD Final recommendations will be communicated back to the requesting physician by way of shared medical record. HPI: 44 year old male with Pmhx of Afib, hx MVR on coumadin, ESRD on HD MWF, hyperparathyroidism, HTN, hx of SVC syndrome, HLD, obesity and YEIMY presenting with complaint of painful chronic chest wound and missed dialysis. He was recently admitted for a dislodged catheter and had femoral TDC 50cm replacement 10/07/24. His last HD was Friday. Admitting labs notable for hyperK and by wt is ~12kg over dry weight. Seen on HD today. Tolerating well. UF goal 4.5L. will bring back tomorrow to MWF and ongoing solute/volume control. ESRD Hx First HD: 2005 Unit: [facility] Configuration Release Manager: Dr. Melendez Days: MWF EDW: 114kg Access: L Fem TDC SHPT: rocaltrol 1.5mcg TIW, sensipar 60mg daily, PTH 1500 PAST MEDICAL HISTORY: PAST MEDICAL HISTORY Diagnosis Date Anemia of chronic disorder Anuria Atrial fibrillation (HCC) 12/02/2018 on Coumadin and Amiodarone BMI 40.0-44.9, adult (HCC) ESRD (end stage renal disease) on dialysis ([facility]) 2005 ESRD from HTN Dialysis M,W,[facility] [phone] Essential hypertension, benign 1998 EKG 09/30 NL. Hearing loss of both ears History of mitral valve stenosis Hx of bacterial endocarditis Hyperparathyroidism due to end stage renal disease on dialysis (HCC) Kidney disease 2005 ESRD due to HTN; on IHD since 2005 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 and scoliosis h/o this 3 y. Dx by xray. Mechanical complication of arteriovenous fistula surgically created ([facility]) Mechanical complication of dialysis catheter ([facility]) Mitral valve disease Morbid obesity (HCC) MS (mitral stenosis) 10/08/2018 Transesophageal US YEIMY on CPAP Paroxysmal atrial fibrillation (HCC) PE (pulmonary thromboembolism) ([facility]) Pelvic mass Pseudoaneurysm of AV hemodialysis fistula ([facility]) Wound of right side of back from friction/rubbing of jacket, goes to wound care center in [place] PAST SURGICAL HISTORY: PAST SURGICAL HISTORY Procedure Laterality Date ARTERIOVENOUS FISTULA Left 08/29/2010 CAPSULE ENDOSCOPY 07/01/2023 CARDIOVERSION-ELECTIVE N/A 12/03/2018 200 joules synchronized - successful COLONOSCOPY 07/01/2023 EGD 06/27/2023 HERNIA REPAIR HX PAST SURGICAL HISTORY OF 08/29/2010 dialysis fistula left arm PAST SURGICAL HISTORY OF Right 03/2019 Right leg femoral vein to superficial femoral artery loop graft mid thigh REPAIR CLEFT LIP RMVL LEANN CVC W/O SUBQ PORT/TOBACCO PREVENTION HEALTH EDUCATOR 01/17/2013 SHX CARDIAC RADIOFREQUENCY ABLATION 08/21/2021 s/p Maze procedure SHX MITRAL VALVE REPLACEMENT 08/21/2021 FAMILY HISTORY: FAMILY HISTORY Adopted: Yes Problem Relation Age of Onset None Mother None Father Aneurysm No Family History SOCIAL HISTORY: Social History Tobacco Use Smoking status: Never Smokeless tobacco: Never Vaping Use Vaping status: Never Used Substance Use Topics Alcohol use: No Drug use: No MEDICATIONS: Prior to Admission Medications: traZODone (DESYREL) 100 mg tabletTake 50 mg by mouth daily at bedtime.Disp: Rfl: pantoprazole DR (PROTONIX) 40 mg tabletTake 1 tablet by mouth once daily.Disp: Rfl: oxyCODONE IR (ROXICODONE) 5 mg immediate release tabletTake 1 tablet by mouth every 4 hours as needed for pain.Disp: Rfl: cinacalcet (SENSIPAR) 30 mg tabletTake 3 tablets by mouth once daily.Disp: 90 tabletRfl: 3 B Complex-Vitamin C-Folic Acid (JOHNSON-BRENDA) 0.8 mg tabTake 1 tablet by mouth once daily.Disp: Rfl: midodrine (PROAMATINE) 10 mg tabletTake 2 tablets by mouth every 8 hours.Disp: 180 tabletRfl: 11 warfarin (COUMADIN) 5 mg tabletTake 1 tablet by mouth once daily.Disp: 60 tabletRfl: 0 polyethylene glycol 3350 (MIRALAX) 17 gram packetTake 1 Packet by mouth once daily. Dissolve dose in 4 - 8 ounces of liquid and take as directed.Disp: 60 EachRfl: 0 Senna 8.6 mg tabTake 1 tablet by mouth two times a day.Disp: 60 tabletRfl: 0 bismuth tribrom-petrolatum (XEROFORM) 5 X 9 bndgApply 1 application to affected area once daily.Disp: 50 EachRfl: 1 MEDICATION, NON-DATABASEApply 1 Each to affected area once daily. Self adhesive 5x9 inch abd pad/dressingDisp: 30 EachRfl: 2 WALKER ROLLATOR SEAT WITH 6 WHEELS - RED.Disp: 1 EachRfl: 1 VELPHORO 500 mg chewas directed. Crush or chew and swallow 2 tablets 3 times a day with mealsDisp: Rfl: Blood Pressure Test Kit-Large (QUICK RESPONSE BP MONITOR)1 Each once daily.Disp: 1 EachRfl: 0 Current Facility-Administered Medications Medication Dose Route Frequency NaCl 0.9% iv flush bag 20 mL INTRAVENOUS PRN dextrose 15 gram/32 mL 15 g (TRUEPLUS) 15 g ORAL PRN Or glucagon 1 mg injection 1 mg INTRAMUSCULAR PRN Or dextrose 10% iv bolus 12.5 g INTRAVENOUS PRN ondansetron (PF) 4 mg injection (ZOFRAN) 4 mg INTRAVENOUS ONCE heparin iv infusion 25,000 units in NaCl 0.45% 250 mL STANDARD NOMOGRAM 0-3,000 Units/hr INTRAVENOUS CONTINUOUS And heparin RATE CHANGE bolus 1,000-10,000 Units for subtherapeutic PTTAC results 1,000-10,000 Units INTRAVENOUS PRN midodrine 20 mg tab(s) (PROAMITINE) 20 mg ORAL q 8 H warfarin 5 mg tab(s) (COUMADIN) 5 mg ORAL DAILY cinacalcet (SENSIPAR) tab(s) 90 mg 90 mg ORAL DAILY polyethylene glycol 3350 17 g packet 17 g ORAL DAILY oxyCODONE IR 5 mg tab(s) (ROXICODONE) 5 mg ORAL q [address] 40 mg tab(s) (PROTONIX) 40 mg ORAL DAILY acetaminophen 650 mg tab(s) (TYLENOL) 650 mg ORAL q 6 H PRN sevelamer carbonate 2,400 mg tab(s) (RENVELA) 2,400 mg ORAL TID w MEALS calcitriol 1.5 mcg cap(s) (ROCALTROL) 1.5 mcg ORAL DAILY melatonin 9 mg tab(s) 9 mg ORAL DAILY (8 PM) piperacillin-tazobactam iv piggyback 3.375 g in dextrose (iso-osmotic) 50 mL (ZOSYN) 3.375 g INTRAVENOUS q 12 H ALLERGIES: Gabapentin and Trazodone COMPLETE REVIEW OF SYSTEMS: PAIN ASSESSMENT: Negative for pain, history of chronic pain, or current treatment for a chronic pain condition CONSTITUTIONAL: No weight loss, malaise, fevers or chills. HEENT: No headaches, blurry vision, epistaxis or sore throat NECK: no neck pain, mass or stiffness RESPIRATORY: Negative for cough, wheezing or shortness of breath CARDIOVASCULAR: Negative for chest pain, orthopnea, palpitations, or edema GASTROINTESTINAL: Negative for nausea, vomiting, and diarrhea. No melena or constipation GENITOURINARY: Negative for dysuria or hematuria SKIN: Negative for lesions, rash, and itching. NEURO: No history of headaches, aphasia, seizures or tremors MUSCULOSKELETAL: No joint swelling or back pain VITAL SIGNS: BP 151/67 Pulse 83 Temp 36.7 ?C (98 ?F) (Temporal) Resp 20 Wt 113.4 kg (250 lb) SpO2 100% BMI 35.87 kg/m? PHYSICAL EXAM: GENERAL: adult male, alert, in no acute distress, cooperative, lying in bed SKIN: Skin color, texture, turgor normal. No rashes or lesions. HEENT: normocephalic, atraumatic NECK: no JVD, masses or bruits LUNGS: clear to auscultation. Good diaphragmatic excursion and normal respiratory effort. CARDIAC: RRR S1S2 ABDOMEN: soft, non-tender, non-distended. Normal bowel sounds. GENITOURINARY: no Call catheter EXTREMITIES:++BLE edema, no joint swelling NEURO: AOx3, normal speech, muscle strength grossly intact PSYCH: normal judgement and insight ACCESS: LLE TDC Lines, Drains, and Airways Line Duration Peripheral 10/12/24 0530 [facility] Short Right Forearm 20 Gauge <1 day Peripheral 10/12/24 0951 Left Forearm 22 Gauge <1 day LABS: Recent Labs 10/12/24 1013 10/12/24 0848 10/12/24 0531 WBC -- -- 6.07 HB -- -- 8.4* HCT -- -- 27.4* PLT -- -- 248 INR -- 1.2 1.2 APTT -- -- 32.8* NA 137 -- 137 K 5.5* -- 6.2* CHLOR 94* -- 94* CO2 17* -- 19* ANION 26* -- 24* BUN 72* -- 72* CREAT 11.98* -- 12.12* GLUC 89 -- 79 CA 8.6 -- 9.0 Recent Labs 10/12/24 0531 TPROT 8.5* ALB 3.9 ALT 13 AST 16 ALKPHOS 179* TBILI 0.3 LACT 1.5 ASSESSMENT: 44 year old male with Pmhx of Afib, hx MVR on coumadin, ESRD on HD MWF, hyperparathyroidism, HTN, hx of SVC syndrome, HLD, obesity and YEIMY presenting with complaint of painful chronic chest wound and missed dialysis. He was recently admitted for a dislodged catheter and had femoral TDC 50cm replacement 10/07/24. His last HD was Friday. Admitting labs notable for hyperK and by wt is ~12kg over dry weight. Seen on HD today. Tolerating well. UF goal 4.5L. will bring back tomorrow to MWF and ongoing solute/volume control. ESRD Hx First HD: 2005 Unit: [facility] Najma Configuration Release Manager: Dr. Melendez Days: [facility] EDW: 114kg Access: L Fem TDC SHPT: rocaltrol 1.5mcg TIW, sensipar 60mg daily, PTH 1500 Heparin: 10,000u bolus 2. Electrolytes: hyperK 3. Volume status: hypervolemic 4. Acid-base: AGMA 5. Ca/P/Pth/Bone mineral disease: - Sevelamer with meals. Sensipar daily and Calcitriol on dialysis days -previous punch bx in 2022 was not consistent with calciphylaxis 6. Anemia of CKD below goal PLAN: - HD today 4hr F250, Qb400, UF 4.5L - next session Friday ([facility]) - EDW 114kg - update iron stores - nephrocaps - renvela with meals Consent for DRYWALL SANDER: ESRD Camilo Norton PA-C Department of Kidney Medicine [facility] Pager: [phone] October 12, 2024 2:56 PM FOR AFTER HOUR CONCERNS BETWEEN 5PM - 7AM CONTACT ON-CALL NEPHROLOGY FELLOW [id number] BUN PRE DIAL SERPL-MCNC Collected: 10/12/2024 2:04 PM Status: F Source: [facility] Order Comment: Specimen Type : BLOOD SPECIMEN Ordering Facility: [facility] Address: [address] [place], [place] [id number] TYPE CODE TESTS RESULT OUT OF RANGE REFERENCE UNITS LAB 43211-6(LOINC) BUN pre dial SerPl-mCnc 69 High 9-24 mg/dL Performed By: #### 25317-4 # ### [facility] CLIA [id number] [address] [place] [address] [place] HBV SURFACE AG SER QL Collected: 10/12/2024 2:04 PM Status: F Source: [facility] Comment: Specimen Type : BLOOD SPECIMEN Ordering Facility: [facility] Address: [address] [place] [address] TYPE CODE TESTS RESULT OUT OF RANGE REFERENCE UNITS LAB 5195-3(LOINC) HBV surface Ag Ser Ql Negative Negative Performed By: #### 43977-2, 5195-3 #### [facility] CLIA [id number] [address] [place] [address] HBV SURFACE AB SER QL Collected: 2024 2:04 PM Status: F Source: [facility] Comment: Specimen Type : BLOOD SPECIMEN Ordering Facility: [facility] Address: [address] [place] [address] TYPE CODE TESTS RESULT OUT OF RANGE REFERENCE UNITS LAB 18374-7(LOINC) HBV surface Ab Ser Ql Negative Result Comment: No serologic al evidence of immunity to Hepatitis B Virus. LAB 28152-8(LOINC) HBV surface Ab Ser-aCnc <8.00 mIU/mL Result Comment: <8 mIU/mL: N o serological evidence of immunity to Hepatitis B Virus. >/= 8 to <12 mIU/mL: No serological evidence of immunity to Hepatitis B Virus. >/= 12 mIU/mL: Consistent with serological evidence of immunity to Hepatitis B Virus. 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 Patient uncomfortable with pain, allowed exam of right breast and LLQ abdominal pain both of which are fairly superficial with extensive sloughing, thick drainage and foul odor. They lack typical appearance of calciphylaxis. Gynecomastia ++ Extensive collaterals of the chest and abdominal wall Areas of induration in lower abdomen, non tender L femoral TDC in situ last exchanged 10/05/24 at OSH Another central line in right upper chest- OSH records show this is a tunneled PICC with brachiocephalic insertion placed on 06/15/24 at presumably preparation for stenting? No f/u afterwards Biopsy 2022: Overall, the histologic features are those of ulcer with dermal fibrosis, vascular ectasia, and reactive vascular proliferation. These histologic features are nonspecific. In the appropriate clinical setting, an ulcer related to chronic ischemia could be considered. Histologic features suggestive of pyoderma gangrenosum are not identified. Clinical correlation is recommended. Plan: - Wound care and plastics consult- debridement may not be advisable if chronic ischemia suspected as reported in skin biopsy - Cover with zosyn, follow blood cx - On-X valve therapeutic INR range is likely lower 1.5-2.0 so that INR is not overshot with prior hx of extensive bleeding from varices - Remove tunneled line from chest or would need to clarify plan for stenting - IHD per schedule SIGNATURE: Benji Fountain MD DATE of SERVICE: October 12, 2024 TIME of SERVICE: 2:02 PM ED NOTE Observed: 10/12/2024 1:20 PM Status: COMPLETED Source: [facility] HNO ID: [id number] Author: MAHOGANY ORTIZ RN Service: Emergency Medicine Author Type: Registered Nurse Type: ED Notes Filed: 10/12/2024 13:48 Note Text: Patient to Dialysis at this time. ED NOTE Observed: 10/12/2024 1:00 PM Status: COMPLETED Source: [facility] HNO ID: [id number] Author: MAHOGANY ORTIZ RN Service: Emergency Medicine Author Type: Registered Nurse Type: ED Notes Filed: 10/12/2024 13:47 Note Text: Report given to dialysis nurse. HISTORY PHYSICAL Observed: 10/12/2024 11:12 AM Status: COMPLETED Source: [facility] HNO ID: [id number] Author: LINDA MANUEL MD Service: Hospital Medicine Author Type: Physician Type: H&P Filed: 10/12/2024 14:23 Note Text: HOSPITAL MEDICINE HISTORY AND PHYSICAL PCP: No primary care provider on file. PAGER COVERAGE: Please page 8th floor [phone], non-8th floor [phone] after 5pm . From 8am to 5pm please check the treatment Epic team banner and page the appropriate service attending. SUBJECTIVE Chief Complaint: Wound Check (Chronic wounds to chest x3 years. Pt states My goal is to come and get some treatment and maybe go to a rehabilitation center. Pt refusing to let staff look at wounds during triage due to pain. ) 44 year old male who has a past medical history of Anemia of chronic disorder, Atrial fibrillation and mechanical mitral valve replacement on Coumadin, ESRD on dialysis MWF, Secondary hyperparathyroidism, HTN, vasculopathy with history of vena cava syndrome and brachiocephalic chronic occlusive disease (not currently amenable for the construction), hyperlipidemia, obesity, and YEIMY who presented to the ED with complaints of worsening chronic wound and missed dialysis (Chronic wounds to chest x3 years. Pt states My goal is to come and get some treatment and maybe go to a rehabilitation center. Pt refusing to let staff look at wounds during triage due to pain. ) HPI: Patient presented to the ED with complaints of worsening wound pain over the last few months. He endorses a history of several months of skin lesions on the chest, back and abdomen. The patient reports two primary lesions on the chest, described as the most painful, with pain severity reaching up to 10+ on a scale of 0-10. Pain is not alleviated by antibiotics, which he last took more than a month ago, and only somewhat relieved by pain medications. The only other times the pain is better is when the wounds are healing which has not happened in a while.The patient denies fevers, chills, shortness of breath, cough, and abdominal pain unrelated to the wounds, diarrhea, nausea, vomiting. He endorses constipation is attributed to pain medication use. 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 The patient reports that he declined a fdc stay in the summer last year as he had already been in the hospital for three months and his son was about to start school so he needed to be there to care for him. He reports that he has been compliant with his medications at home In the ED, vital signs were stable. Work up was concerning for anemia with hemoglobin 8.4 (close to baseline). BUN and creatinine were elevated at 72 and 12.12 respectively.Alk phos was elevated at 179 He was hyperkalemic 6.2 (No peaked t waves on EKG) and he was acidotic with a bicarb of 19 and a gap of 24. Patient was treated with dilaudid for pain control and he received insulin and kayexalate for his hyperkalemia . He is now being admitted for further work up and management of his condition Constitutional: Negative for fatigue and fever. Negative for chills. HENT: Negative for sore throat. Eyes: Negative for visual disturbance. Respiratory: Negative for cough and shortness of breath. Cardiovascular: Negative for chest pain. Positive for pain from the wounds on the chest wall Gastrointestinal: Negative for abdominal pain, diarrhea, nausea and vomiting. Positive for pain from the wounds on the abdominal wall Genitourinary: Negative for difficulty urinating, dysuria and hematuria. Musculoskeletal: Negative for arthralgias. Neurological: Negative for paraesthesias and light-headedness. Hematological: Does not bruise/bleed easily. Psychiatric/Behavioral: Negative for agitation. Work up so far has been notable for: XR CHEST 1V FRONTAL PORT Result Date: 10/12/2024 IMPRESSION: Nonspecific bibasilar opacities with possible trace LEFT pleural effusion. Lab Results Component Value Date CREAT 11.98 (H) 10/12/2024 K 5.5 (H) 10/12/2024 NA 137 10/12/2024 Lab Results Component Value Date WBC 6.07 10/12/2024 HB 8.4 (L) 10/12/2024 INR 1.2 10/12/2024 Lab Results Component Value Date CRP 9.3 (H) 09/29/2022 Past Medical History: PAST MEDICAL HISTORY Diagnosis Date Anemia of chronic disorder Anuria Atrial fibrillation (HCC) 12/02/2018 on Coumadin and Amiodarone BMI 40.0-44.9, adult (HCC) ESRD (end stage renal disease) on dialysis (HCC) 2005 ESRD from HTN Dialysis M,W,F [facility] [phone] Essential hypertension, benign 1998 EKG 09/30 NL. Hearing loss of both ears History of mitral valve stenosis Hx of bacterial endocarditis Hyperparathyroidism due to end stage renal disease on dialysis (HCC) Kidney disease 2005 ESRD due to HTN; on IHD since 2005 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 and scoliosis h/o this 3 y. Dx by xray. Mechanical complication of arteriovenous fistula surgically created (HCC) Mechanical complication of dialysis catheter (HCC) Mitral valve disease Morbid obesity (HCC) MS (mitral stenosis) 10/08/2018 Transesophageal US YEIMY on CPAP Paroxysmal atrial fibrillation (HCC) PE (pulmonary thromboembolism) ([facility]) Pelvic mass Pseudoaneurysm of AV hemodialysis fistula ([facility]) Wound of right side of back from friction/rubbing of jacket, goes to wound care center in [place] Past Surgical History: PAST SURGICAL HISTORY Procedure Laterality Date ARTERIOVENOUS FISTULA Left 08/29/2010 CAPSULE ENDOSCOPY 07/01/2023 CARDIOVERSION-ELECTIVE N/A 12/03/2018 200 joules synchronized - successful COLONOSCOPY 07/01/2023 EGD 06/27/2023 HERNIA REPAIR HX PAST SURGICAL HISTORY OF 08/29/2010 dialysis fistula left arm PAST SURGICAL HISTORY OF Right 03/2019 Right leg femoral vein to superficial femoral artery loop graft mid thigh REPAIR CLEFT LIP RMVL LEANN CVC W/O SUBQ PORT/TOBACCO PREVENTION HEALTH EDUCATOR 01/17/2013 SHX CARDIAC RADIOFREQUENCY ABLATION 08/21/2021 s/p Maze procedure SHX MITRAL VALVE REPLACEMENT 08/21/2021 Family History: FAMILY HISTORY Adopted: Yes Problem Relation Age of Onset None Mother None Father Aneurysm No Family History Social History: Social History Tobacco Use Smoking status: Never Smokeless tobacco: Never Vaping Use Vaping status: Never Used Substance Use Topics Alcohol use: No Drug use: No [employer]GE Medications Prior to Admission Medications Prescriptions Last Dose Informant Patient Reported? Taking? B Complex-Vitamin C-Folic Acid (JOHNSON-BRENDA) 0.8 mg tab 10/11/2024 Yes Yes Sig: Take 1 tablet by mouth once daily. Blood Pressure Test Kit-Large (QUICK RESPONSE BP MONITOR) Unknown No No Si Each once daily. MEDICATION, NON-DATABASE Unknown No No Sig: Apply 1 Each to affected area once daily. Self adhesive 5x9 inch abd pad/dressing Senna 8.6 mg tab Unknown No No Sig: Take 1 tablet by mouth two times a day. VELPHORO 500 mg chew Unknown Yes No Sig: as directed. Crush or chew and swallow 2 tablets 3 times a day with meals WALKER ROLLATOR SEAT WITH 6 WHEELS - RED Unknown No No Sig: . bismuth tribrom-petrolatum (XEROFORM) 5 X 9 bndg Unknown No No Sig: Apply 1 application to affected area once daily. cinacalcet (SENSIPAR) 30 mg tablet 10/11/2024 No Yes Sig: Take 3 tablets by mouth once daily. midodrine (PROAMATINE) 10 mg tablet 10/11/2024 No Yes Sig: Take 2 tablets by mouth every 8 hours. oxyCODONE IR (ROXICODONE) 5 mg immediate release tablet 10/11/2024 Yes Yes Sig: Take 1 tablet by mouth every 4 hours as needed for pain. pantoprazole DR (PROTONIX) 40 mg tablet Yes Yes Sig: Take 1 tablet by mouth once daily. polyethylene glycol 3350 (MIRALAX) 17 gram packet Unknown No No Sig: Take 1 Packet by mouth once daily. Dissolve dose in 4 - 8 ounces of liquid and take as directed. traZODone (DESYREL) 100 mg tablet Unknown Yes Yes Sig: Take 50 mg by mouth daily at bedtime. warfarin (COUMADIN) 5 mg tablet Unknown No No Sig: Take 1 tablet by mouth once daily. Facility-Administered Medications: None Allergies: ALLERGIES Allergen Reactions Gabapentin Unknown, Other: See Comments Trazodone Other: See Comments Fidgety Review of Systems: As above in the hpi, otherwise negative. OBJECTIVE: BP 120/79 Pulse 89 Temp (Src) 98 (Temporal) Resp 16 Wt 250 lb (113.4kg) SpO2 100% O2 Therapy: Room Air PHYSICAL EXAM: General appearance: Alert and oriented x3 in no acute distress Skin: Skin color, texture, turgor normal, no suspicious rashes or lesions HEENT: PERRL, EOMI, sclera non-icteric Neck: no jugular venous distention Cardiac: RRR without murmur, gallop, or rubs. No ectopy. Resp: clear to auscultation bilaterally, Clean and dry dressings on chest wounds Abd: Soft, non-tender. Bowel sounds normal. No masses, organomegaly. Clean and dry dressings on the left side of the abdomen Ext: no edema in BLE Lines, Drains, and Airways Line Duration Peripheral 10/12/24 0530 [facility] Short Right Forearm 20 Gauge <1 day Peripheral 10/12/24 0951 Left Forearm 22 Gauge <1 day Data: CBC: Recent Labs 10/12/24 0531 WBC 6.07 HB 8.4* HCT 27.4* PLT 248 MCV 91.9 RDWCV 17.8* NEUTP 66.2 ABSNEUT 4.02 LYMPHP 16.5 MONOP 10.2 EODINP 5.9 BMP: Recent Labs 10/12/24 1013 10/12/24 0531 GLUC 89 79 NA 137 137 K 5.5* 6.2* CHLOR 94* 94* CO2 17* 19* ANION 26* 24* BUN 72* 72* CREAT 11.98* 12.12* Cardiology Interpretations: TTE: Ejection Fraction - Result: 64 % Date: 07/09/2023 Time: 07:09:40 ASSESSMENT AND PLAN 44 year old male with a past medical history of Anemia of chronic disorder, Atrial fibrillation and mechanical mitral valve replacement on Coumadin, ESRD on dialysis MWF, Secondary hyperparathyroidism, HTN, 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 Principal Problem: Dialysis patient ([facility]) Active Problems: ESRD (end stage renal disease) on dialysis ([facility]) HTN (hypertension) YEIMY (obstructive sleep apnea) 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 Personal history of DVT (deep vein thrombosis) PAF (paroxysmal atrial fibrillation) ([facility]) History of stroke Hypotension, chronic Chronic pain syndrome #Wounds Acute on chronic wounds Previously suspected to be calciphylaxis but biopsies negative Wbc wnl at 6.01 Sepsis lactate wnl at 1.5 ESR and crp pending Previous CT Chest from 09/05/2024 showed bilateral skin thickening consistent with history of cellulitis Plan - Zosyn ordered - Plastic consult placed -Follow up blood cultures - Continue pain control as needed with oxycodone - Wound care consult placed - PT/OT consult placed #ESRD #Secondary Hyperparathyroidism #Hyperkalemia Assessment: ESRD on dialysis MWF, Last dialysis session Friday10/08/2023, Missed Friday10/11/2023, no urgent need for dialysis on admission. On Calcitriol 1.5 mcg, Sensipar 30 mg daily, Velphoro 500 mg 3 times daily Creatinine 11.98 BUN 72 Potassium 5.5 (No peaked t waves on EKG) Alk Phos 179 Plan: - Nephrology consulted - Monitor renal function daily - Renal diet ordered - Continue Calcitriol 1.5 mcg, Sensipar 30 mg daily and substitue Renvela 1600mg tid for Velphoro 500 mg 3 times daily #Acidosis Bicarb 19 -->17 Anion gap 24-->26 BHB wnl 0.1 Possibly respiratory acidosis with CO2 retention Plan -Follow up blood gas -BIPAP if necessary pending blood gas results #ANEMIA Assessment: Normocytic/ Anemia Hemoglobin on admission: 8.4 Baseline hemoglobin: 8.4-8.8 Last Ferritin 1,950.0 (09/05/2021) Likely ACD in the setting of ESRD given ferritin level, can not rule out blood loss from the colon as a contributing factor given ulcerations and hemorrhoids noted on previous colonoscopy Plan: - Monitor cbc daily - Follow up updated ferritin #Hypotension On midodrine BID Plan - Continue home meds - Continue to monitor blood pressures - Monitor renal function daily Mechanical mitral valve replacement Atrial fibrillation On warfarin INR goal 2.5-3.5 - Continue warfarin #Insomnia - Continue trazodone #GERD Stable, on pantoprazole at home -Pantoprazole ordered #Constipation - Continue miralax and senna #YEIMY -BIPAP ordered Medication Reconciliation: Completed Medication and Non-Pharmacologic VTE Prophylaxis/Anticoagulants Anticoagulant AND Antiplatelet Medications (From admission, onward) Start Dose Route Frequency Last Action Ordered Stop 10/12/24 1130 warfarin 5 mg tab(s) (COUMADIN) 5 mg ORAL DAILY Ordered 10/12/24 1110 -- 10/12/24 0800 heparin iv infusion 25,000 units in NaCl 0.45% 250 mL STANDARD NOMOGRAM (Heparin Infusion + Bolus for Subtherapeutic PTTAC) 0-30 mL/hr Placed in And Linked Group 0-3,000 Units/hr INTRAVENOUS CONTINUOUS New Bag/Syringe/Bottle, 10/12 0850 10/12/24 0740 -- Code Status: Full Code Disposition: TBByron Linda Manuel MD Pager [phone] October 12, 2024 11:12 AM BAS METAB 2000 PNL SERPL Collected: 10:13 AM Status: F Source: [facility] Order Comment: Specimen Type : BLOOD SPECIMEN Ordering Facility: [facility] Address: [address] [place] [address] TYPE CODE TESTS RESULT OUT OF RANGE REFERENCE UNITS LAB 2345-7(LOINC) Glucose SerPl-mCnc 89 74-99 mg/dL Result Comment: The [place] Diabetes Association (ADA) provides guidance for cutoff values for fasting glucose and random glucose. The ADA defines fasting as no caloric intake for at least 8 hours. Fasting plasma glucose results between 100 to 125 mg/dL indicate increased risk for diabetes (prediabetes). Fasting plasma glucose results greater than or equal to 126 mg/dL meet the criteria for diagnosis of diabetes. In the absence of unequivocal hyperglycemia, results should be confirmed by repeat testing. In a patient with classic symptoms of hyperglycemia or hyperglycemic crisis, random plasma glucose results greater than or equal to 200 mg/dL meet the criteria for diagnosis of diabetes. Reference: Standards of Medical Care in Diabetes 2016, [place] Diabetes Association. Diabetes Care. 2016.39(Suppl 1). LAB 3094-0(LOINC) BUN SerPl-mCnc 72 High 9-24 mg/ dL LAB 2160-0(LOINC) Creat SerPl-mCnc 11.98 High 0.73-1.22 mg/dL LAB 2951-2(LOINC) Sodium SerPl-sCnc 137 136-144 mmol/L LAB 2823-3(LOINC) Potassium SerPl-sCnc 5.5 High 3.7-5.1 mmol/L LAB 2075-0(LOINC) Chloride SerPl-sCnc 94 Low 98-107 mmol/L LAB 2028-9(LOINC) CO2 SerPl-sCnc 17 Low 22-30 mmo l/L LAB 67197-2(LOINC) Anion Gap SerPl-sCnc 26 High 8-15 mmol/L LAB 70597-6(LOINC) Calcium SerPl-mCnc 8.6 8.5-10.2 mg/dL LAB 91115-3(LOINC) Creatinine + eGFR Pnl SerPlBld 5 Low >=60 mL/min/1 .73m??? Result Comment: Estimated Gl omerular Filtration Rate (eGFR) is calculated using the 2020 CKD-EPI creatinine equation. This equation utilizes serum creatinine, sex, and age as parameters. The creatinine assay has traceable calibration to isotope dilution-mass spectrometry. Refer to KDIGO guidelines for clinical interpretation. In patients with unstable renal function, e.g. those with acute kidney injury, the eGFR may not accurately reflect actual GFR. Performed By: #### 72490-8, 2276-4, 74992-7 #### [facility] CLIA [id number] [address] [place] [address] [place] PROCALCITONIN SERPL-MCNC Collected: 10/12/2024 10:13 AM Status: F Source: [facility] Order Comment: Specimen Type : BLOOD SPECIMEN Ordering Facility: [facility] Address: [address] [place] [address] TYPE CODE TESTS RESULT OUT OF RANGE REFERENCE UNITS LAB 16797-1([facility]) Procalcitonin SerPl-mCnc 3.59 High <0.09 ng/mL Result Comment: For a guided interpretation of test results, please visit the Change in Procalcitonin Calculator, [email or web address]. Performed By: #### 97063-2, 2276-4, 43638-6 #### [facility] CLIA [id number] [address] [place] [address] [place] FERRITIN SERPL-MCNC Collected: 10/12/19 10:13 AM Status: F Source: [facility] Order Comment: Specimen Type : BLOOD SPECIMEN Ordering Facility: [facility] Address: [address] [place] [address] TYPE CODE TESTS RESULT OUT OF RANGE REFERENCE UNITS LAB 2276-4(LOINC) Ferritin SerPl-nc 1254.0 High 30.3-565.7 ng/mL Performed By: #### 07786-4, 2276-4, 94127-3 #### [facility] CLIA [id number] [address] [place], [place] [address] [address] [place] XR CHEST 1V FRONTAL PORT Observed: 10/12 9:06 AM Status: F Source: [facility] * * *Final Report* * * DATE OF EXAM: Oct 12 2024 9:06AM EGX 5376 - XR CHEST 1V FRONTAL PORT / PROCEDURE REASON: Chest pain * * * * Physician Interpretation * * * * EXAMINATION: CHEST RADIOGRAPH (PORTABLE SINGLE VIEW AP) Exam Date/Time: 10/12/2024 9:06 AM CLINICAL HISTORY: Chest pain MQ: [id number] Comparison: 04/21/2024 RESULT: Lines, tubes, and devices: Interval placement of a RIGHT internal jugular central venous catheter. The tip is not definitely visualized. The catheter extends at least to the level of the lower SVC. LEFT atrial appendage clip is again seen. Mitral valve repair only faintly visualized. Lungs and pleura: Low lung volumes, positioning and technique limit the examination. Increased markings at the bases are least in part due to vascular crowding. I cannot exclude areas of subsegmental atelectasis, infection or aspiration. There is a questionable trace LEFT pleural effusion. No pneumothorax. Cardiomediastinal silhouette: Stable cardiomediastinal silhouette. Sternotomy wires are again seen. Other: Surgical clips are again seen in the LEFT lower neck. Severe humeral head deformities with widening of the glenohumeral joints,not significantly changed. IMPRESSION: Nonspecific bibasilar opacities with possible trace LEFT pleural effusion. Residential Driver: PSCB Transcribe Date/Time: Oct 12 2024 9:43A Dictated by : NOAH HARDING MD This examination was interpreted and the report reviewed and electronically signed by: NOHA HARDING MD on Oct 12 2024 9:53AM EST [id number] PT PNL PPP Collected: 10/12/2024 8:48 AM Status: F Source: [facility] Order Comment: Specimen Type : BLOOD SPECIMEN Ordering Facility: [facility] Address: [address] [place] [address] TYPE CODE TESTS RESULT OUT OF RANGE REFERENCE UNITS LAB 5902-2(LOINC) Prothrombin time 13.0 9.7-13.0 sec LAB 6301-6(LOINC) INR PPP 1.2 0.9-1.3 Result Comment: Vitamin K An tagonist (VKA) Therapeutic Range: INR 2 to 3 (Target INR of 2.5) Note: For patients treated with VKA drugs, such as warfarin, the [place] [employer]icians 2012 Guideline recommends a therapeutic INR range of 2 to 3 (target INR of 2.5). This recommendation includes high-risk patients with antiphospholipid syndrome with previous arterial or venous thromboembolism, current-generation mechanical or bioprosthetic aortic heart valve replacement. Note: Patients with mechanical aortic valve replacement and additional risk factors for thromboembolic events (atrial fibrillation, previous thromboembolism, LV dysfunction, hypercoagulable conditions) or an older generation mechanical AVR (i.e., ball in-Cage) or any mechanical MVR should have a INR therapeutic range of 2.5 to 3.5 (target INR of 3). Ranjit GH, et al. Chest 2012, 141:7S-47S Kevin RA, et al. JACC 2017, 70: 252-289 Performed By: #### 06260-4 # ### [facility] CLIA [id number] [address] [place], [place] [address] [address] [place] ED NOTE Observed: 10/12/2024 7:22 AM Status: COMPLETED Source: [facility] HNO ID: [id number] Author: INDY GIFFORD MD Service: Emergency Medicine Author Type: Physician Type: ED Notes Filed: 10/12/2024 22:12 Note Text: PT for HS 44 M hx esrd mwf, htn, p/w chronic wound check, osh thought calciphylaxis, on chest abd and back, ulcerations, on chronic oxycodone at home, wants rehab placement. Missed dialysis yesterday, K 6.2 without EKG changes, getting hyperK cocktail. [] admit med ED Course as of 10/12/24 1625 Others' Documentation FriOct 12, 2024 0629 CMP(!!): Protein, Total 8.5(!) Albumin 3.9 Calcium 9.0 Bilirubin, Total 0.3 Alkaline Phosphatase 179(!) AST 16 ALT 13 Glucose 79 BUN 72(!) Creatinine 12.12(!) Sodium 137 Potassium 6.2(!!) Chloride 94(!) CO2 19(!) Anion Gap 24(!) eGFR 5(!) Mild alk phos elevation. Ast/alt unremarkable. Elevated bun/cr c/w known ESRD. HyperK (getting EKG. Will treat). Bicarb low, acidotic? Lactate wnl. Will check bhb [HS] 0630 CBC with Diff(!): WBC 6.07 RBC 2.98(!) Hemoglobin 8.4(!) Hematocrit 27.4(!) MCV 91.9 MCH 28.2 MCHC 30.7 RDW-CV 17.8(!) Platelet Count 248 MPV 9.9 Neut% 66.2 Abs Neut (ANC) 4.02 Lymph% 16.5 Abs Lymph 1.00 Shelby% 10.2 Abs Shelby 0.62 Eosin% 5.9 Abs Eosin 0.36 Baso% 0.7 Abs Baso 0.04 Immature Gran % 0.5 IMMATURE GRANS (ABS) 0.03 NRBC 0.0 Absolute nRBC <0.01 DTYPE Auto CBC with stable, chronic anemia. No leukocytosis or thrombocytopenia [HS] 0631 Lactate: 1.5 [HS] 0708 EKG w/o hyperK changes [HS] 0708 B-Hydroxybutyrate: 0.10 [HS] ED Course User Index [HS] Sofie Zamora MD Clinical Impressions as of 10/12/24 1625 ESRD (end stage renal disease) on dialysis ([facility]) H/O mitral valve replacement with mechanical valve Abdominal wall skin ulcer, with unspecified severity ([facility]) Wounds, multiple Subtherapeutic anticoagulation Hyperkalemia Under my care: Patient remained hemodynamically stable and in no acute distress. Received hyper-K cocktail. Discussed case with nephrology and medicine provider. Medicine will accept patient for admission. Nephrology consulted to arrange dialysis. Patient admitted for further care. Continue to receive pain control while here in the ED. Alex Grady MD Emergency Medicine PGY-3 Attending Note I evaluated the patient and personally participated in the mendoza components. I agree with the resident's findings and plan as documented and have discussed the case and management of the patient's care with the resident. 44-year-old male presents to [facility] emergency department from home in [place] area evaluated this morning. There was full sentences in the emergency department for peds inpatient patient arrived in emergency department 182 last evening not evaluated fully until dayshift this morning. He has history of end-stage renal disease with hemodialysis Friday at [facility]. He also has history of prosthetic mitral valve and atrial fibrillation anticoagulated with warfarin. He states he takes midodrine as much as 3 times a day. He has a left femoral dialysis catheter which was changed at outside hospital on October 05 where he was admitted from the through the . He had missed dialysis. Patient states he does take his warfarin in the evenings but did not take it last night as he was in the waiting room. He has numerous unchanged bandages both pectoralis bilateral as well as left lower side and flank area. INR is subtherapeutic and potassium is elevated at 6.2 today. EKG shows normal sinus rhythm heart rate of 87 first-degree AV block no acute peaked T waves nor wide QRS. He was treated for hyperkalemia started on heparin drip admitted to the internal medicine service. Critical Care I spent a total of 45 minutes of critical care time in the evaluation and management of this patient. This was necessary to treat or prevent deterioration of the following condition(s): Severe metabolic abnormality, which the patient had and/or has a high probability of suddenly developing. The patient received IV 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 and Correction of Electrolyte Abnormality during the time that critical care was provided. I discussed the plan of care with the RESIDENT and agree with the findings documented. Critical care time excludes separately billed procedures. Indy Gifford MD Signature: Indy Gifford MD Date: 10/12/2024 Time: 10:03 PM INDY GIFFORD 10/12/242206 ECG COMPLETE Observed: 10/12/2024 6:35 AM Status: F Source: [facility] Ventricular Rate : 87 BPM Atrial Rate : 87 BPM P-R Interval : 222 ms QRS Duration : 76 ms Q-T Interval : 388 ms QTC Calculation(Bazett) : 466 ms Calculated P Assumption : 67 degrees Calculated R Assumption : 145 degrees Calculated T Assumption : 88 degrees SINUS RHYTHM WITH 1ST DEGREE AV BLOCK RIGHT AXIS DEVIATION Septal Infarct , AGE UNDETERMINED ABNORMAL ECG Confirmed by INDY GIFFORD M.D. ([id number]), video tape editor DELVIN HUNT ([id number]) on 10/12/2024 12:41:48 PM NAME : ELIA WESTON PID : [id number] : 1980 Gender : Male Race : ORD : [id number] Procedure Date : Oct 12 2024 06:35:05 Edit Date : Oct 12 2024 12:41:51 Diagnosis: SINUS RHYTHM WITH 1ST DEGREE AV BLOCK RIGHT AXIS DEVIATION Septal Infarct , AGE UNDETERMINED ABNORMAL ECG Confirmed by INDY GIFFORD M.D. ([id number]), video tape editor DELVIN HUNT ([id number]) on 10/12/2024 12:41:48 PM Test Reason : Chest Pain Location : 2 : EDNS D011-954 Overread By : INDY GIFFORD M.D. Edited By : DELVIN HUNT Referred By : , Acquired by : MARIE bajwa PROV NOTE Observed: 10/12/2024 6:26 AM Status: [facility]ED [id number] Author: INDY GIFFORD MD Service: Emergency Medicine Author Type: Physician Type: ED Provider Notes Filed: 10/12/2024 22:07 Note Text: ED Provider Note Patient Name: Elia Weston : 1980 SERVICE DATE: 10/11/24 History Patient presents with: Wound Check: Chronic wounds to chest x3 years. Pt states My goal is to come and get some treatment and maybe go to a rehabilitation center. Pt refusing to let staff look at wounds during triage due to pain. History provided by: Patient and medical records Patient is a 44-year-old male ESRD on hemodialysis, mitral valve replacement (mechanical, on warfarin) A-fib,, hypertension presenting to the emergency department for multiple issues -wounds, missed dialysis, requesting rehab. Patient says he is coming in for his chronic wounds. He has had these wounds on and off for multiple years. Notes that they are very painful. Currently he has 2 on his chest, 1 on abdomen, few on back. Does not think they are infected but says they are increasingly painful and his home oxycodone is no longer helping. Notes that he was previously offered rehab placement for help with wound healing approximately 6 months ago when he had been admitted -denied rehab at that time but says that was a mistake and wishes to go to rehab now. Patient also endorses that he missed dialysis yesterday. Last full session on Friday. Denies feeling fluid overloaded, short of breath. No chest pain, abdominal pain, nausea/vomiting/diarrhea, palpitations, syncope. 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 Recently finished course of levofloxacin. Saw wound culture. Dressing with xeroform, no additional abx PAST MEDICAL HISTORY Diagnosis Date Anemia of chronic disorder Anuria Atrial fibrillation (HCC) 12/02/2018 on Coumadin and Amiodarone BMI 40.0-44.9, adult ([facility]) ESRD (end stage renal disease) on dialysis ([facility]) 2005 ESRD from HTN Dialysis [facility] [phone] Essential hypertension, benign 1998 EKG 09/30 NL. Hearing loss of both ears History of mitral valve stenosis Hx of bacterial endocarditis Hyperparathyroidism due to end stage renal disease on dialysis ([facility]) Kidney disease 2005 ESRD due to HTN; on IHD since 2005 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 and scoliosis h/o this 3 y. Dx by xray. Mechanical complication of arteriovenous fistula surgically created ([facility]) Mechanical complication of dialysis catheter ([facility]) Mitral valve disease Morbid obesity ([facility]) MS (mitral stenosis) 10/08/2018 Transesophageal US YEIMY on CPAP Paroxysmal atrial fibrillation ([facility]) PE (pulmonary thromboembolism) ([facility]) Pelvic mass Pseudoaneurysm of AV hemodialysis fistula ([facility]) Wound of right side of back from friction/rubbing of jacket, goes to wound care center in [place] PAST SURGICAL HISTORY Procedure Laterality Date ARTERIOVENOUS FISTULA Left 08/29/2010 CAPSULE ENDOSCOPY 07/01/2023 CARDIOVERSION-ELECTIVE N/A 12/03/2018 200 joules synchronized - successful COLONOSCOPY 07/01/2023 EGD 06/27/2023 HERNIA REPAIR HX PAST SURGICAL HISTORY OF 08/29/2010 dialysis fistula left arm PAST SURGICAL HISTORY OF Right 03/2019 Right leg femoral vein to superficial femoral artery loop graft mid thigh REPAIR CLEFT LIP RMVL LEANN CVC W/O SUBQ PORT/TOBACCO PREVENTION HEALTH EDUCATOR 01/17/2013 SHX CARDIAC RADIOFREQUENCY ABLATION 08/21/2021 s/p Maze procedure SHX MITRAL VALVE REPLACEMENT 08/21/2021 FAMILY HISTORY Adopted: Yes Problem Relation Age of Onset None Mother None Father Aneurysm No Family History Social History Tobacco Use Smoking status: Never Smokeless tobacco: Never Vaping Use Vaping status: Never Used Substance and Sexual Activity Alcohol use: No Drug use: No Sexual activity: Never ALLERGIES Allergen Reactions Gabapentin Unknown, Other: See Comments Trazodone Other: See Comments Fidgety Review of Systems All other systems reviewed and are negative. Physical Exam Vitals [10/11/24 1843] BP Pulse Temp Temp src Resp SpO2 Weight Height 143/91 87 36.9 ?C (98.4 ?F) Oral 17 97 % 113.4 kg (250 lb) -- Physical Exam Vitals reviewed. Constitutional: General: He is not in acute distress. Cardiovascular: Rate and Rhythm: Normal rate and regular rhythm. Heart sounds: Normal heart sounds. Pulmonary: Effort: Pulmonary effort is normal. No respiratory distress. Breath sounds: Normal breath sounds. Decreased air movement present. Abdominal: General: Abdomen is protuberant. Palpations: Abdomen is soft. Tenderness: There is abdominal tenderness. There is no guarding or rebound. Comments: Tenderness over the region of ulcerative wound, located in lower quadrants. No tenderness that seems unrelated to wound. Musculoskeletal: General: No deformity. Comments: Mild bilateral lower extremity edema Skin: General: Skin is warm and dry. Comments: Two large ulcerative wounds to chest wall. Very tender. Purulent drainage. Mild surrounding induration without erythema. No crepitus. Similar wound on abdomen. To more superficial wounds on back, right mid/lower back and mid back. Neurological: Mental Status: He is alert and oriented to person, place, and time. Cranial Nerves: No facial asymmetry. Comments: Moves all extremities purposefully and spontaneously Diagnostic Testing ED Labs Ordered and Reviewed COMPLETE BLOOD COUNT AND DIFFERENTIAL - Abnormal; Notable for the following components: Result Value Ref Range RBC 2.98 (*) 4.20 - 6.00 m/uL Hemoglobin 8.4 (*) 13.0 - 17.0 g/dL Hematocrit 27.4 (*) 39.0 - 51.0 % RDW-CV 17.8 (*) 11.5 - 15.0 % All other components within normal limits COMPREHENSIVE METABOLIC PANEL - Abnormal; Notable for the following components: Protein, Total 8.5 (*) 6.3 - 8.0 g/dL Alkaline Phosphatase 179 (*) 38 - 113 U/L BUN 72 (*) 9 - 24 mg/dL Creatinine 12.12 (*) 0.73 - 1.22 mg/dL Potassium 6.2 (*) 3.7 - 5.1 mmol/L Chloride 94 (*) 98 - 107 mmol/L CO2 19 (*) 22 - 30 mmol/L Anion Gap 24 (*) 8 - 15 mmol/L Estimated Glomerular Filtration Rate 5 (*) >=60 mL/min/1.73m? All other components within normal limits GLUCOSE, BLOOD (POC) - Abnormal; Notable for the following components: Glucose, Point of Care 102 (*) 74 - 99 mg/dL All other components within normal limits ACTIVATED PARTIAL THROMBOPLASTIN TIME - Abnormal; Notable for the following components: APTT 32.8 (*) 23.0 - 32.4 sec All other components within normal limits Narrative: Unfractionated Heparin Therapeutic Ranges: Standard Heparin Nomogram: 53 to 78 seconds (anti-Xa level of 0.3 to 0.7 U/ml) Low Dose/ACS Nomogram: 49 to 67 seconds (anti-Xa level of 0.2 to 0.5 U/ml) Stroke Treatment Nomogram: 49 to 67 seconds (anti-Xa level of 0.2 to 0.5 U/ml) Note: The APTT therapeutic range has been determined for the current lot of laboratory APTT reagent in use throughout the [facility]. SEPSIS LACTATE W/ REFLEX (INITIAL) - Normal PROTHROMBIN TIME - Normal B-HYDROXYBUTYRATE - Normal BACTERIAL CULTURE, BLOOD - Normal GLUCOSE, BLOOD (POC) GLUCOSE - ED(POC) GLUCOSE - ED(POC) BASIC METABOLIC PANEL PROTHROMBIN TIME BACTERIAL CULTURE, BLOOD Procedures ED Course / Clinical Impression ED Course as of 10/12/24 0839 Sofie Zamora's Documentation FriOct 12, 2024 0629 CMP(!!): Protein, Total 8.5(!) Albumin 3.9 Calcium 9.0 Bilirubin, Total 0.3 Alkaline Phosphatase 179(!) AST 16 ALT 13 Glucose 79 BUN 72(!) Creatinine 12.12(!) Sodium 137 Potassium 6.2(!!) Chloride 94(!) CO2 19(!) Anion Gap 24(!) eGFR 5(!) Mild alk phos elevation. Ast/alt unremarkable. Elevated bun/cr c/w known ESRD. HyperK (getting EKG. Will treat). Bicarb low, acidotic? Lactate wnl. Will check bhb 0630 CBC with Diff(!): WBC 6.07 RBC 2.98(!) Hemoglobin 8.4(!) Hematocrit 27.4(!) MCV 91.9 MCH 28.2 MCHC 30.7 RDW-CV 17.8(!) Platelet Count 248 MPV 9.9 Neut% 66.2 Abs Neut (ANC) 4.02 Lymph% 16.5 Abs Lymph 1.00 Shelby% 10.2 Abs Shelby 0.62 Eosin% 5.9 Abs Eosin 0.36 Baso% 0.7 Abs Baso 0.04 Immature Gran % 0.5 IMMATURE GRANS (ABS) 0.03 NRBC 0.0 Absolute nRBC <0.01 DTYPE Auto CBC with stable, chronic anemia. No leukocytosis or thrombocytopenia 0631 Lactate: 1.5 0708 EKG w/o hyperK changes 0708 B-Hydroxybutyrate: 0.10 Clinical Impressions as of 10/12/24 0839 ESRD (end stage renal disease) on dialysis ([facility]) H/O mitral valve replacement with mechanical valve Abdominal wall skin ulcer, with unspecified severity ([facility]) Wounds, multiple Subtherapeutic anticoagulation Hyperkalemia MDM / Disposition / Plan Elia Weston 44 year old with pmh as noted above presenting to the emergency department for wounds, requesting rehab, missed dialysis. Vital signs and physical exam as noted above. Exam and workup today most significant for patient with multiple ulcerative wounds to trunk and back that are very tender, without lower suspicion for NSTI given no crepitus, history not consistent. Hold sepsis workup and start empiric antibiotics given vitals unremarkable and no clear source but patient is immunosuppressed and wounds are somewhat extensive. Labs also notable for hyperkalemia (likely in setting of missed dialysis); ordered hyper-K meds. No EKG changes, thus calcium held. Workup additionally shows subtherapeutic INR which in setting of mechanical valve is concerning. Starting on heparin drip to bridge. Plan for admission for hyperkalemia, subtherapeutic INR, wound care/pain management. Medications given in the ED: ED Medication Administration from 10/11/2024 1826 to 10/12/2024 0839 Date/Time Order Dose Route Action 10/12/2024 0641 EST dextrose 10% iv bolus 250 mL INTRAVENOUS New Bag/Syringe/Bottle 10/12/2024 0708 EST dextrose 10% iv bolus 0 mL INTRAVENOUS Infusion Complete 10/12/2024 0712 EST sodium polystyrene sulfonate (with sorbitol) 30 g liquid (SPS) 30 g ORAL Given 10/12/2024 0640 EST HYDROmorphone 1 mg injection (DILAUDID) 1 mg INTRAVENOUS Given 10/12/2024 0630 EST ondansetron (PF) 4 mg injection (ZOFRAN) 4 mg INTRAVENOUS Not Given History and Record Review External record(s) reviewed: PDMP reviewed and other (see comments). Findings from review of other records: See hpi Transfer of Care The patient's care was transferred over to PT at 7 AM. The care and plan was discussed with the oncoming provider. Items pending that need to be reviewed: Contact Physician . Tentative impression of patient: Hyperkalemia in dialysis patient, subtherapeutic INR with history of mechanical valve replacement, chronic skin wounds with delayed healing SIGNATURE: Sofie Zamora MD - SOFIE ZAMORA 10/12/24 0851 Attending Note I evaluated the patient and personally participated in the mendoza components. I agree with the resident's findings and plan as documented and have discussed the case and management of the patient's care with the resident. 44-year-old male presents to [facility] emergency department from home in [facility] evaluated this morning. There was full sentences in the emergency department for peds inpatient patient arrived in emergency department 1825 last evening not evaluated fully until dayshift this morning. He has history of end-stage renal disease with hemodialysis Friday at [facility]. He also has history of prosthetic mitral valve and atrial fibrillation anticoagulated with warfarin. He states he takes midodrine as much as 3 times a day. He has a left femoral dialysis catheter which was changed at outside hospital on October 05 where he was admitted from the through the . He had missed dialysis. Patient states he does take his warfarin in the evenings but did not take it last night as he was in the waiting room. He has numerous unchanged bandages both pectoralis bilateral as well as left lower side and flank area. INR is subtherapeutic and potassium is elevated at 6.2 today. EKG shows normal sinus rhythm heart rate of 87 first-degree AV block no acute peaked T waves nor wide QRS. He was treated for hyperkalemia started on heparin drip admitted to the internal medicine service. Critical Care I spent a total of 45 minutes of critical care time in the evaluation and management of this patient. This was necessary to treat or prevent deterioration of the following condition(s): Severe metabolic abnormality, which the patient had and/or has a high probability of suddenly developing. The patient received IV 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 and Correction of Electrolyte Abnormality during the time that critical care was provided. I discussed the plan of care with the RESIDENT and agree with the findings documented. Critical care time excludes separately billed procedures. Indy Gifford MD Signature: Indy Gifford MD Date: 10/12/2024 Time: 10:03 PM INDY GIFFORD 10/12/242206 BACTERIA BLD CULT Observed: 10/12/2024 6:22 AM Status: F Source: [facility] CULTURE, BLOOD: No growth 5 days Performed By: #### [id number] ### # [facility] CLIA [id number] [address] [place] [address] [place] SEPSIS LACTATE W/ REFLEX (INITIAL) Collected: 10/12/2024 5:31 AM Status: F Source: [facility] Order Comment: Specimen Type : BLOOD SPECIMEN Ordering Facility: [facility] Address: [address] [place] [address] TYPE CODE TESTS RESULT OUT OF RANGE REFERENCE UNITS LAB 14388-1([facility]) Lactate Bld-sCnc 1.5 <=2.0 mmol/L Performed By: #### SLACTR ## ## [facility] CLIA [id number] [address] [place] [address] [place] BACTERIA BLD CULT Observed: 10/12/2024 5:31 AM Status: F Source: [facility] CULTURE, BLOOD: No growth 5 days Performed By: #### 600-7 ### # [facility] CLIA [id number] [address] [facility] [place] [address] [place] COMP METAB 2000 PNL SERPL Collected: 5:31 AM Status: F Source: [facility] Order Comment: Specimen Type : BLOOD SPECIMEN Ordering Facility: [facility] Address: [address] [place] [address] TYPE CODE TESTS RESULT OUT OF RANGE REFERENCE UNITS LAB 2885-2(LOINC) Prot SerPl-mCnc 8.5 High 6.3-8.0 g/dL LAB 1751-7(LOINC) Albumin SerPl-mCnc 3.9 3.9-4.9 g/dL LAB 89659-8(LOINC) Calcium SerPl-mCnc 9.0 8.5-10.2 mg/dL LAB 1975-2(LOINC) Bilirub SerPl-mCnc 0.3 0.2-1.3 mg/dL LAB 6768-6(LOINC) ALP SerPl-cCnc 179 High 38-113 U/L LAB 1920-8(LOINC) AST SerPl-cCnc 16 14-40 U/L LAB 1742-6(LOINC) ALT SerPl-cCnc 13 10-54 U/L LAB 2345-7(LOINC) Glucose SerPl-mCnc 79 74-99 mg/dL Result Comment: The [place] Diabetes Association (ADA) provides guidance for cutoff values for fasting glucose and random glucose. The ADA defines fasting as no caloric intake for at least 8 hours. Fasting plasma glucose results between 100 to 125 mg/dL indicate increased risk for diabetes (prediabetes). Fasting plasma glucose results greater than or equal to 126 mg/dL meet the criteria for diagnosis of diabetes. In the absence of unequivocal hyperglycemia, results should be confirmed by repeat testing. In a patient with classic symptoms of hyperglycemia or hyperglycemic crisis, random plasma glucose results greater than or equal to 200 mg/dL meet the criteria for diagnosis of diabetes. Reference: Standards of Medical Care in Diabetes 2016, [place] Diabetes Association. Diabetes Care. 2016.39(Suppl 1). LAB 3094-0(LOINC) BUN SerPl-mCnc 72 High 9-24 mg/ dL LAB 2160-0(LOINC) Creat SerPl-mCnc 12.12 High 0.73-1.22 mg/dL LAB 2951-2(LOINC) Sodium SerPl-sCnc 137 136-144 mmol/L LAB 2823-3(LOINC) Potassium SerPl-sCnc 6.2 High Alert 3.7-5.1 mmol/L LAB 2075-0(LOINC) Chloride SerPl-sCnc 94 Low 98-107 mmol/L LAB 2028-9(LOINC) CO2 SerPl-sCnc 19 Low 22-30 mmo l/L LAB 28051-2(LOINC) Anion Gap SerPl-sCnc 24 High 8-15 mmol/L LAB 71529-1(LOINC) Creatinine + eGFR Pnl SerPlBld 5 Low >=60 mL/min/1 .73m??? Result Comment: Estimated Gl omerular Filtration Rate (eGFR) is calculated using the 2020 CKD-EPI creatinine equation. This equation utilizes serum creatinine, sex, and age as parameters. The creatinine assay has traceable calibration to isotope dilution-mass spectrometry. Refer to KDIGO guidelines for clinical interpretation. In patients with unstable renal function, e.g. those with acute kidney injury, the eGFR may not accurately reflect actual GFR. Performed By: #### 1987-5, B DES, 99147-5 #### [facility] CLIA [id number] [address] [place] [address] [place] B-HYDROXYBUTYRATE Collected: 5 5:31 AM Status: F Source: [facility] Order Comment: Specimen Type : BLOOD SPECIMEN Ordering Facility: [facility] Address: [address] [place] [address] TYPE CODE TESTS RESULT OUT OF RANGE REFERENCE UNITS LAB 6873-4(LOINC) B-OH-Butyr SerPl-sCnc 0.10 <0.28 mmol/L Result Comment: This test wa s developed, and its performance characteristics determined by the [facility] Department of Pathology and Laboratory Medicine. It has not been cleared or approved by the FDA. The [facility] Department of Pathology and Laboratory Medicine is regulated under CLIA as qualified to perform high-complexity testing. This test is used for clinical purposes. It should not be regarded as investigational or for research. Performed By: #### 1987-, [place], [address]-4 #### [facility] CLIA [id number] [address] [place] [address] [place] CRP SERPL-MCNC Collected: 10/12/2024 5:31 AM Status: F Source: [facility] Order Comment: Specimen Type : BLOOD SPECIMEN Ordering Facility: [facility] Address: [address] [place] [address] TYPE CODE TESTS RESULT OUT OF RANGE REFERENCE UNITS LAB 1988-01(LOINC) CRP SerPl-mCnc 3.4 High <0.9 mg/dL Performed By: #### 1987-, [place], [address]-5 #### [facility] CLIA [id number] [address] [place] [address] [place] PT PNL PPP Collected: 10/12/2024 5:31 AM Status: F Source: [facility] Order Comment: Specimen Type : BLOOD SPECIMEN Ordering Facility: [facility] Address: [address] [place] [address] TYPE CODE TESTS RESULT OUT OF RANGE REFERENCE UNITS LAB 5902-2(LOINC) Prothrombin time 13.0 9.7-13.0 sec LAB 6301-6(LOINC) INR PPP 1.2 0.9-1.3 Result Comment: Vitamin K An tagonist (VKA) Therapeutic Range: INR 2 to 3 (Target INR of 2.5) Note: For patients treated with VKA drugs, such as warfarin, the [place] [employer] 2012 Guideline recommends a therapeutic INR range of 2 to 3 (target INR of 2.5). This recommendation includes high-risk patients with antiphospholipid syndrome with previous arterial or venous thromboembolism, current-generation mechanical or bioprosthetic aortic heart valve replacement. Note: Patients with mechanical aortic valve replacement and additional risk factors for thromboembolic events (atrial fibrillation, previous thromboembolism, LV dysfunction, hypercoagulable conditions) or an older generation mechanical AVR (i.e., ball in-Cage) or any mechanical MVR should have a INR therapeutic range of 2.5 to 3.5 (target INR of 3). Ranjit GH, et al. Chest 2012, 141:7S-47S Kevin RA, et al. JACC 2017, 70: 252-289 Performed By: #### 96028-6, 69535-9 #### [facility] CLIA [id number] [address] [place] [address] OF [facility] APTT PPP Collected: 5:31 AM Status: F Source: [facility] Order Comment: Specimen Type : BLOOD SPECIMEN Ordering Facility: [facility] Address: [address] [place] [address] TYPE CODE TESTS RESULT OUT OF RANGE REFERENCE UNITS LAB 86178-0([facility]) aPTT PPP 32.8 High 23.0-32.4 sec Performed By: #### 40677-6, 61115-8 #### [facility] CLIA [id number] [address] [place] [address] [place] CBC W AUTO DIFF BLD Collected: 10/12/2024 5:[address] atus: F Source: [facility] Order Comment: Specimen Type : BLOOD SPECIMEN Ordering Facility: [facility] Address: [address] [place] [address] TYPE CODE TESTS RESULT OUT OF RANGE REFERENCE UNITS LAB 6690-2(LOINC) WBC # Bld Auto 6.07 3.70-11.00 k/uL LAB 789-8(LOINC) RBC # Bld Auto 2.98 Low 4.20-6.00 m/ uL LAB 718-7(LOINC) Hgb Bld-mCnc 8.4 Low 13.0-17.0 g/dL LAB 4544-3(LOINC) Hct VFr Bld Auto 27.4 Low 39.0-51.0 % LAB 787-2(LOINC) MCV RBC Auto 91.9 80.0-100.0 fL LAB 785-6(LOINC) MCH RBC Qn Auto 28.2 26.0-34.0 p g LAB 786-4(LOINC) MCHC RBC Auto-mCnc 30.7 30.5-36.0 g/dL LAB 57553-1(LOINC) RDW RBC-Rto 17.8 High 11.5-15.0 % LAB 777-3(LOINC) Platelet # Bld Auto 248 150-400 k/uL LAB 84411-5([facility]) PMV Bld Auto 9.9 9.0-12.7 fL LAB 770-8([facility]) Neutrophils/leuk NFr Bld Auto 66.2 % LAB 751-8([facility]) Neutrophils # Bld Auto 4.02 1.45-7.50 k/uL LAB 736-9([facility]) Lymphocytes/leuk NFr Bld Auto 16.5 % LAB 731-0([facility]) Lymphocytes # Bld Auto 1.00 1.00-4.00 k/uL LAB 5905-5([facility]) Monocytes/leuk NFr Bld Auto 10.2 % LAB 742-7([facility]) Monocytes # Bld Auto 0.62 <0.87 k/uL LAB 713-8([facility]) Eosinophil/leuk NFr Bld Auto 5.9 % LAB 711-2([facility]) Eosinophil # Bld Auto 0.36 <0.46 k/uL LAB 706-2([facility]) Basophils/leuk NFr Bld Auto 0.7 % LAB 704-7([facility]) Basophils # Bld Auto 0.04 <0.11 k/uL LAB 56802-7([facility]) Imm Granulocytes/fely k NFr Bld Auto 0.5 % LAB 94935-7([facility]) Imm Granulocytes # Bld Auto 0.03 <0.10 k/uL LAB 56394-7([facility]) nRBC/100 WBC Bld-Rto 0.0 /100 WBC LAB 771-6([facility]) nRBC # Bld Auto <0.01 <0.01 k/u L LAB 53289-7([facility]) Differential method Bld Auto Performed By: #### 60488-2, 4537-7 #### [facility] CLIA [id number] [address] [place] [address] [place] ESR BLD QN WESTRGRN Collected: 10/12/2024 5:[address] atus: F Source: [facility] Order Comment: Specimen Type : BLOOD SPECIMEN Ordering Facility: [facility] Address: [address] [place] [address] TYPE CODE TESTS RESULT OUT OF RANGE REFERENCE UNITS LAB 4537-7(LOINC) ESR Bld Qn Westrgrn 130 High 0-15 mm/hr Performed By: #### 30223-4, 4537-7 #### [facility] CLIA [id number] [address] [facility] [address] OF [facility] ED NOTE Observed: 10/12/2024 5:30 AM Status: COMPLETED Source: [facility] HNO ID: [id number] Author: ANNIE BAH Medic Service: Emergency Medicine Author Type: Shock Absorption Floor Layer and Location And Measurement Technician Type: ED Notes Filed: 10/12/2024 05:43 Note Text: Pt refused 2nd IV due to pain ED NOTE Observed: 10/12/2024 2:44 AM Status: COMPLETED Source: [facility] HNO ID: [id number] Author: LIZZY SANTANA, CT Service: ? Author Type: Clinical Location And Measurement Technician Type: ED Notes Filed: 10/12/2024 02:44 Note Text: Pt declined updating vs ED NOTE Observed: 10/11/2024 10:34 PM Status: COMPLETED Source: [facility] HNO ID: [id number] Author: LIZZY SANTANA, VIKA Service: ? Author Type: Clinical Location And Measurement Technician Type: ED Notes Filed: 10/11/2024 22:34 Note Text: Updating pt vs ED TRIAGE NOTE Observed: 10/11/2024 6:46 PM Status: COMPLETED Source: [facility] HNO ID: [id number] Author: DYLAN CHIN MD Service: Emergency Medicine Author Type: Physician Type: ED Triage Notes Filed: 10/11/2024 18:48 Note Text: ED TRIAGE PROVIDER NOTE Patient Name: Elia Weston Service Date: 10/11/24 BRIEF HPI: This is a 44 year old male who presents to the ED with: Patient has a history of A-fib, anemia, on hemodialysis, chronic pain, hypertension, iron deficiency, obesity, mitral valve replacement on Coumadin, vena cava syndrome, and brachiocephalic chronic occlusive disease who presents with acute on chronic wounds to his chest and back. BRIEF EXAM: NAD Awake and Alert Non labored breathing No focal neurological deficits INITIAL WORKUP AND DECISION MAKING: Pt declined to take off shirt and evaluate reported wounds. Orders Placed This Encounter Sepsis Lactate with (1) Reflex CBC with Diff CMP Blood Culture Blood Culture NaCl 0.9% iv flush bag SIGNATURE: Dylan Chin MD PROGRESS Observed: 09/10/2024 12:05 PM Status: COMPLETED Source: [facility] HNO ID: [id number] Author: LINDSEY WRAY RN Service: ? Author Type: Registered Nurse Type: Progress Notes Filed: 09/10/2024 12:08 Note Text: ED Follow-Up Note Provider Action / FYI: Outreach to pt but unable to reach as message states pt not accepting calls and unable to leave a message Pt did complete a f/u vs with a new provider from [facility] on 09/06/24 Call completed by: RN Patient seen in ED: Out of Network ED Contact made with Patient: No, unable to leave message. Third attempt - patient is unable to be reached. Lindsey Wray RN September 10, 2024 12:08 PM PROGRESS Observed: 09/07/2024 1:12 PM Status: COMPLETED Source: [facility] HNO ID: [id number] Author: LINDSEY WRAY RN Service: ? Author Type: Registered Nurse Type: Progress Notes Filed: 09/10/2024 12:08 Note Text: ED Follow-Up Note Provider Action / FYI: Outreach was attempted with this patient via telephone regarding the patient's recent [facility] ED visit. Unable to leave a voicemail message. Will re-attempt call.Friday09/10/24 Call completed by: RN Patient seen in ED: Out of Network ED Contact made with Patient: No, unable to leave message. Will reattempt call Lindsey Wray RN September 07, 2024 1:22 PM CNPTOUTREACH Observed: 09/07/2024 12:00 AM Status: COMPLETED Source: [facility] Patient Outreach ([facility]) ELIA WESTON ([id number]) 1980 M T Date Time Provider Department 09/07/24 LINDSEY WRAY During your visit today, we recorded the following information about you: Lindsey Wray RN 09/10/2024 12:08 PM Signed ED Follow-Up Note Provider Action / FYI: Outreach was attempted with this patient via telephone regarding the patient's recent [facility] ED visit. Unable to leave a voicemail message. Will re-attempt call.Friday09/10/24 Call completed by: RN Patient seen in ED: Out of Network ED Contact made with Patient: No, unable to leave message. Will reattempt call Lindsey Wray RN September 07, 2024 1:22 PM Lindsey Wray RN 09/10/2024 12:08 PM Signed ED Follow-Up Note Provider Action / FYI: Outreach to pt but unable to reach as message states pt not accepting calls and unable to leave a message Pt did complete a f/u vs with a new provider from [facility] on 09/06/24 Call completed by: RN Patient seen in ED: Out of Network ED Contact made with Patient: No, unable to leave message. Third attempt - patient is unable to be reached. Lindsey Wray RN September 10, 2024 12:08 PM Allergies As of Date: 09/07/2024 Noted Allergy Reaction GABAPENTIN 08/09/2021 16 - Unknown 14 - Other: See Comments Date Reviewed: 06/03/2024 Reviewed by: Radha Dumont RN - Fully Assessed Reason for Visit: ACM BETSY RN [3987] Cmt: ER outreach follow up Prescriptions as of 09/10/2024 - warfarin (COUMADIN) 5 mg tablet Take 1 tablet by mouth once daily. - polyethylene glycol 3350 (MIRALAX) 17 gram packet Take 1 Packet by mouth once daily. Dissolve dose in 4 - 8 ounces of liquid and take as directed. - Senna 8.6 mg tab Take 1 tablet by mouth two times a day. - levothyroxine (LEVOXYL) 50 mcg tablet Take 1 tablet by mouth once daily. Take on empty stomach. For Thyroid - ergocalciferol 50,000 unit capsule (VITAMIN D2, DRISDOL) Take 1 tablet by mouth twice weekly [id number], then decrease to 1 tablet weekly. - bismuth tribrom-petrolatum (XEROFORM) 5 X 9 bndg Apply 1 application to affected area once daily. - MEDICATION, NON-DATABASE Apply 1 Each to affected area once daily. - MEDICATION, NON-DATABASE Apply 1 Each to affected area once daily. Self adhesive 5x9 inch abd pad/dressing - WALKER ROLLATOR SEAT WITH 6 WHEELS - RED . - oxyCODONE IR (ROXICODONE) 5 mg immediate release tablet Take 1 tablet by mouth every 4 hours as needed for pain. - VELPHORO 500 mg chew as directed. Crush or chew and swallow 2 tablets 3 times a day with meals - cinacalcet (SENSIPAR) 30 mg tablet Take 3 tablets by mouth once daily. - B Complex-Vitamin C-Folic Acid (JOHNSON-BRENDA) 0.8 mg tab Take 1 tablet by mouth once daily. - aspirin 81 mg chewable tablet Take 1 tablet by mouth once daily. - midodrine (PROAMATINE) 10 mg tablet Take 2 tablets by mouth every 8 hours. - Blood Pressure Test Kit-Large (QUICK RESPONSE BP MONITOR) 1 Each once daily. Meds Comments as of 07/14/2023: 07/14/23 The medications are managed by this patient by: PATIENT Nini Redd, [facility] Problem List As Of Date 09/07/2024 Noted Resolved ESRD (end stage renal disease) on dialysis ([facility]*10/16/2012 HTN (hypertension) [I10] 10/16/2012 Obesity [E66.9] 11/02/2012 Epigastric pain [R10.13] 11/02/2012 Mechanical complication of other vascular devic*02/12/2013 Right knee pain [M25.561] 07/29/2013 Obesity, morbid, BMI 40.0-49.9 ([facility]) [E66.01] 02/22/2014 Tendinitis of left shoulder [M77.8] 02/22/2014 Mass of left thigh [R22.42] 09/08/2014 Thigh pain [M79.659] 09/08/2014 Hematuria [R31.9] 12/08/2014 Dialysis patient ([facility]) [Z99.2] 12/08/2014 YEIMY (obstructive sleep apnea) [G47.33] 05/09/2015 Abdominal or pelvic swelling, mass, or lump, ri*05/09/2015 Secondary hyperparathyroidism of renal origin (*05/09/2015 Renal osteodystrophy [N25.0] 05/09/2015 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*05/09/2015 Groin pain [R10.30] 05/09/2015 Personal history of DVT (deep vein thrombosis) *03/28/2016 Sprain of medial collateral ligament of right k*04/22/2016 ESRD (end stage renal disease) ([facility]) [N18.6] 04/21/2019 PAF (paroxysmal atrial fibrillation) ([facility]) [I48*12/02/2018 A-V fistula ([facility]) [I77.0] 04/23/2019 Anemia of chronic disease [D63.8] 04/23/2019 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] 05/18/2021 End-stage renal disease on hemodialysis ([facility]) [*04/07/2019 Expressive dysphasia [R47.02] 08/01/2021 History of endocarditis [Z86.79] 08/01/2021 Hearing loss [H91.90] 02/17/2018 History of non-ST elevation myocardial infarcti*11/08/2019 Heart failure, unspecified ([facility]) [I50.9] 08/05/2011 Iron deficiency anemia, unspecified [D50.9] 05/31/2008 Chronic anticoagulation [Z79.01] 08/01/2021 Mitral valve disease [I05.9] 08/01/2021 Myocardial infarction ([facility]) [I21.9] 08/01/2021 Noncompliance with medication regimen [Z91.148] 08/01/2021 Paroxysmal atrial flutter ([facility]) [I48.92] 08/01/2021 Pulmonary embolism ([facility]) [I26.99] 08/01/2021 Pulmonary edema [J81.1] 08/01/2021 Stenosis of other vascular prosthetic devices, *05/22/2021 Unspecified atherosclerosis of [place] arteries *10/30/2013 Vitamin D deficiency, unspecified [E55.9] 10/16/2020 Hypervolemia [E87.70] 08/01/2021 09/04/2021 Open wound of right side of back [S21.201A] 08/01/2021 History of stroke [Z86.73] 08/01/2021 Hypotension, chronic [I95.89] 08/01/2021 Falls [R29.6] 08/01/2021 Mitral valve stenosis, severe [I05.0] 08/03/2021 Mitral stenosis [I05.0] 08/03/2021 Obesity, Class II, BMI 35-39.9 [E66.812] 08/04/2021 Discharge planning issues [Z75.8] 08/17/2021 08/31/2021 Dental caries [K02.9] 08/19/2021 Pain, postoperative, acute [G89.18] 08/21/2021 08/29/2021 Coagulopathy (HCC) [D68.9] 08/21/2021 08/22/2021 S/P MVR (mitral valve replacement) [Z95.2] 08/22/2021 Acute pulmonary edema (HCC) [J81.0] 08/25/2021 08/31/2021 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]08/25/2021 CHB (complete heart block) (HCC) [I44.2] 08/29/2021 Encounter for support and coordination of trans*08/31/2021 Abdominal pain [R10.9] 09/28/2022 Nausea and vomiting [R11.2] 09/28/2022 09/30/2022 Near syncope [R55] 09/28/2022 Acute colitis [K52.9] 09/29/2022 Supratherapeutic INR [R79.1] 09/30/2022 Anemia of chronic disorder [D63.8] 06/12/2023 Atrial fibrillation (HCC) [I48.91] 12/02/2018 Essential hypertension, benign [I10] 1998 Abdominal wall skin ulcer, with unspecified sev*06/24/2023 Acute blood loss anemia [D62] 06/24/2023 Melena [K92.1] 06/24/2023 Hypotension [I95.9] 06/24/2023 Adjustment disorder with depressed mood [F43.21]06/27/2023 Hyperkalemia [E87.5] 06/30/2023 Hyponatremia [E87.1] 06/30/2023 Metabolic acidosis [E87.20] 06/30/2023 Anemia of renal disease [N18.9, D63.1] 06/30/2023 Skin pain [R20.8] 06/30/2023 Bleeding ulcer [K28.4] 06/30/2023 MSSA bacteremia [R78.81, B95.61] 07/01/2023 Proximal colon ulcer [K63.3] 07/02/2023 Aftercare for long-term (current) use of antibi*07/02/2023 Anemia due to chronic kidney disease, on chroni*07/02/2023 Mild protein-calorie malnutrition (HCC) [E44.1] 08/31/2023 Acquired hypothyroidism [E03.9] 03/17/2024 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 *03/18/2024 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] 03/18/2024 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] 03/18/2024 At risk for alteration in skin integrity based *03/20/2024 Venous collateral circulation [I99.8] 03/21/2024 Hypothyroidism [E03.9] 03/21/2024 H/O mitral valve replacement with mechanical va*03/21/2024 Hypocalcemia due to chronic kidney disease [E83*03/25/2024 Chronic pain syndrome [G89.4] 03/28/2024 Uremia [N19] 04/22/2024 Jugular vein occlusion, 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 Patient is scheduled for an Establish Care appointment today that needs rescheduled due to provider call off. Soonest available that can be offered is Aug [address] Iglesias for Establish Care appointment. MYKE Herman Michelle, LPN 07/21/2024 8:18 AM Signed Patient had appointment to establish. Due to provider being unavailable attempted to contact patient, no answer and unable to leave VM. Patient did not show up to check in for appointment either. Bhakti Blackwood LPN Allergies As of Date: 07/20/2024 Noted Allergy Reaction GABAPENTIN 08/09/2021 16 - Unknown 14 - Other: See Comments Date Reviewed: 06/03/2024 Reviewed by: Radha Dumont, RN - Fully Assessed Prescriptions as of 07/21/2024 - warfarin (COUMADIN) 5 mg tablet Take 1 tablet by mouth once daily. - polyethylene glycol 3350 (MIRALAX) 17 gram packet Take 1 Packet by mouth once daily. Dissolve dose in 4 - 8 ounces of liquid and take as directed. - Senna 8.6 mg tab Take 1 tablet by mouth two times a day. - levothyroxine (LEVOXYL) 50 mcg tablet Take 1 tablet by mouth once daily. Take on empty stomach. For Thyroid - ergocalciferol 50,000 unit capsule (VITAMIN D2, DRISDOL) Take 1 tablet by mouth twice weekly [id number], then decrease to 1 tablet weekly. - bismuth tribrom-petrolatum (XEROFORM) 5 X 9 bndg Apply 1 application to affected area once daily. - MEDICATION, NON-DATABASE Apply 1 Each to affected area once daily. - MEDICATION, NON-DATABASE Apply 1 Each to affected area once daily. Self adhesive 5x9 inch abd pad/dressing - WALKER ROLLATOR SEAT WITH 6 WHEELS - RED . - oxyCODONE IR (ROXICODONE) 5 mg immediate release tablet Take 1 tablet by mouth every 4 hours as needed for pain. - VELPHORO 500 mg chew as directed. Crush or chew and swallow 2 tablets 3 times a day with meals - cinacalcet (SENSIPAR) 30 mg tablet Take 3 tablets by mouth once daily. - B Complex-Vitamin C-Folic Acid (JOHNSON-BRENDA) 0.8 mg tab Take 1 tablet by mouth once daily. - aspirin 81 mg chewable tablet Take 1 tablet by mouth once daily. - midodrine (PROAMATINE) 10 mg tablet Take 2 tablets by mouth every 8 hours. - Blood Pressure Test Kit-Large (QUICK RESPONSE BP MONITOR) 1 Each once daily. Meds Comments as of 07/14/2023: 07/14/23 The medications are managed by this patient by: PATIENT Nini Redd [facility] Problem List As Of Date 07/20/2024 Noted Resolved ESRD (end stage renal disease) on dialysis ([facility]*10/16/2012 HTN (hypertension) [I10] 10/16/2012 Obesity [E66.9] 11/02/2012 Epigastric pain [R10.13] 11/02/2012 Mechanical complication of other vascular devic*02/12/2013 Right knee pain [M25.561] 07/29/2013 Obesity, morbid, BMI 40.0-49.9 ([facility]) [E66.01] 02/22/2014 Tendinitis of left shoulder [M77.8] 02/22/2014 Mass of left thigh [R22.42] 09/08/2014 Thigh pain [M79.659] 09/08/2014 Hematuria [R31.9] 12/08/2014 Dialysis patient ([facility]) [Z99.2] 12/08/2014 YEIMY (obstructive sleep apnea) [G47.33] 05/09/2015 Abdominal or pelvic swelling, mass, or lump, ri*05/09/2015 Secondary hyperparathyroidism of renal origin (*05/09/2015 Renal osteodystrophy [N25.0] 05/09/2015 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*05/09/2015 Groin pain [R10.30] 05/09/2015 Personal history of DVT (deep vein thrombosis) *03/28/2016 Sprain of medial collateral ligament of right k*04/22/2016 ESRD (end stage renal disease) ([facility]) [N18.6] 04/21/2019 PAF (paroxysmal atrial fibrillation) ([facility]) [I48*12/02/2018 A-V fistula ([facility]) [I77.0] 04/23/2019 Anemia of chronic disease [D63.8] 04/23/2019 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] 05/18/2021 End-stage renal disease on hemodialysis ([facility]) [*04/07/2019 Expressive dysphasia [R47.02] 08/01/2021 History of endocarditis [Z86.79] 08/01/2021 Hearing loss [H91.90] 02/17/2018 History of non-ST elevation myocardial infarcti*11/08/2019 Heart failure, unspecified ([facility]) [I50.9] 08/05/2011 Iron deficiency anemia, unspecified [D50.9] 05/31/2008 Chronic anticoagulation [Z79.01] 08/01/2021 Mitral valve disease [I05.9] 08/01/2021 Myocardial infarction ([facility]) [I21.9] 08/01/2021 Noncompliance with medication regimen [Z91.148] 08/01/2021 Paroxysmal atrial flutter ([facility]) [I48.92] 08/01/2021 Pulmonary embolism ([facility]) [I26.99] 08/01/2021 Pulmonary edema [J81.1] 08/01/2021 Stenosis of other vascular prosthetic devices, *05/22/2021 Unspecified atherosclerosis of [place] arteries *10/30/2013 Vitamin D deficiency, unspecified [E55.9] 10/16/2020 Hypervolemia [E87.70] 08/01/2021 09/04/2021 Open wound of right side of back [S21.201A] 08/01/2021 History of stroke [Z86.73] 08/01/2021 Hypotension, chronic [I95.89] 08/01/2021 Falls [R29.6] 08/01/2021 Mitral valve stenosis, severe [I05.0] 08/03/2021 Mitral stenosis [I05.0] 08/03/2021 Obesity, Class II, BMI 35-39.9 [E66.812] 08/04/2021 Discharge planning issues [Z75.8] 08/17/2021 08/31/2021 Dental caries [K02.9] 08/19/2021 Pain, postoperative, acute [G89.18] 08/21/2021 08/29/2021 Coagulopathy (HCC) [D68.9] 08/21/2021 08/22/2021 S/P MVR (mitral valve replacement) [Z95.2] 08/22/2021 Acute pulmonary edema (HCC) [J81.0] 08/25/2021 08/31/2021 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]08/25/2021 CHB (complete heart block) (HCC) [I44.2] 08/29/2021 Encounter for support and coordination of trans*08/31/2021 Abdominal pain [R10.9] 09/28/2022 Nausea and vomiting [R11.2] 09/28/2022 09/30/2022 Near syncope [R55] 09/28/2022 Acute colitis [K52.9] 09/29/2022 Supratherapeutic INR [R79.1] 09/30/2022 Anemia of chronic disorder [D63.8] 06/12/2023 Atrial fibrillation (HCC) [I48.91] 12/02/2018 Essential hypertension, benign [I10] 1998 Abdominal wall skin ulcer, with unspecified sev*06/24/2023 Acute blood loss anemia [D62] 06/24/2023 Melena [K92.1] 06/24/2023 Hypotension [I95.9] 06/24/2023 Adjustment disorder with depressed mood [F43.21]06/27/2023 Hyperkalemia [E87.5] 06/30/2023 Hyponatremia [E87.1] 06/30/2023 Metabolic acidosis [E87.20] 06/30/2023 Anemia of renal disease [N18.9, D63.1] 06/30/2023 Skin pain [R20.8] 06/30/2023 Bleeding ulcer [K28.4] 06/30/2023 MSSA bacteremia [R78.81, B95.61] 07/01/2023 Proximal colon ulcer [K63.3] 07/02/2023 Aftercare for long-term (current) use of antibi*07/02/2023 Anemia due to chronic kidney disease, on chroni*07/02/2023 Mild protein-calorie malnutrition (HCC) [E44.1] 08/31/2023 Acquired hypothyroidism [E03.9] 03/17/2024 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 *03/18/2024 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] 03/18/2024 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] 03/18/2024 At risk for alteration in skin integrity based *03/20/2024 Venous collateral circulation [I99.8] 03/21/2024 Hypothyroidism [E03.9] 03/21/2024 H/O mitral valve replacement with mechanical va*03/21/2024 Hypocalcemia due to chronic kidney disease [E83*03/25/2024 Chronic pain syndrome [G89.4] 03/28/2024 Uremia [N19] 04/22/2024 Jugular vein occlusion, 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 08/09/2021 DRUG INGREDI/[id number]( SNOMED CT) GABAPENTIN UNKNOWN Med [facility] ENCOUNTERS ADMIT/DISCHARGE ACCOUNT NUMBER ADMITTING ENCOUNTER CLASS LOCATION SOURCE 06/27/2025/06/27/20 [id number] Ambulatory [facility] HospitalBuild ing:JANET [facility] 06/23/2025/06/23/20 [id number]: [id number]: E009-[address] [facility] 06/16/2025/06/16/20 [id number] Ambulatory [facility] HospitalBuild ing:ORTH [facility] 06/13/2025/06/13/20 [id number] Ambulatory [facility] HospitalBuild ing:WOLB [facility] 05/31/2025/05/31/20 [id number] Emergency [facility] HospitalBuild ing:PVLB [facility] 05/31/2025/06/08/20 [id number] RIVAS SOLITARIO Inpatient Encounter [facility] HospitalBuild ing:E153Dvie: [id number]: H081-[address] [facility] 04/20/2025/05/27/20 [id number] MAURILIO CINTRON [facility]v: [id number]: G080-[address] [facility] 01/05/2025/01/06/20 [id number] Ambulatory Buildin [address] [facility] 12/28/2024/12/30/19 [id number] Emergency [facility] HospitalBuild ing:Z710Gspd: [id number]: E18-[address] [facility] 12/26/2024/12/27/19 [id number] Emergency Building:[employer] [facility] oom: 11Bed: 11 [facility] PAYERS ENCOUNTER GUARANTOR PAYER SUBSCRIBER SOURCE 06/27/2025 Primary Insurance:[employer] [facility] [id number] Date:1143-92-10Xztk Name:Uzma DO: [id number] [place] [address] [facility] 06/23/2025 Primary Insurance:[employer] ADVANTAGE OPolicy Number: [id number] Date:3721-25-49Nvvo Name:Uzma DO: [id number] [place] [address] [facility] 06/16/2025 Primary Insurance:[employer] [facility] [id number] Date:2042-13-62Xaqx Name:Uzma DO: [id number] [place] [address] [facility] 06/13/2025 Primary Insurance:[employer] ADVANTAGE HMOPolicy Number: [id number] Date:3992-07-26Wcai Name:Uzma DO: [id number] [place] [address] [facility] 05/31/2025 Primary Insurance:[employer] ADVANTAGE HMOPolicy Number: [id number] Date:5135-36-64Jvqv Name:Uzma MELENDEZB: [id number] [place] [address] [facility] 05/31/2025 Primary Insurance:[employer]AGE HMOPolicy Number: [id number] Date:8331-51-79Flzp Name:Uzma DO: [id number] [place] [address] [facility] 04/20/2025 Primary Insurance:[employer] ADVANTAGE HMOPolicy Number: [id number] Date:0172-64-24Uyee Name:Uzma DO: [id number] [place] [address] [facility] 01/05/2025 Primary Insurance:[employer] MEDICARE ADVANTAGEPolicy Number: [id number] Date:0404-96-11Nrlm Name:Medicare HMO ELIA DO: [id number] [place] [address] [facility] 12/28/2024 Primary Insurance:[employer] ADVANTAGE HMOPolicy Number: [id number] Date:8313-77-76Zptl Name:Uzma DO: [id number] [place] [address] [facility] 12/26/2024 ELIA DO: [place] [address]Jhs: () Primary Insurance:[facility] MEDICAREPolicy Number: [id number] Date:4748-81-45[address], [place] [address]KT: ELIA DO: [id number] [place], [place] [address]Hir: () [facility]
--- OUTSIDE RECORDS SUMMARY | 2025-06-27 16:49 | XMS RPT_ITS ---
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 / Z79.01(ICD-10) NA Active [facility] 06/23/2025 Active Visit for wound check / Z51.89(ICD-10) BROOKE PINZON Active [facility] 06/16/2025 Active Abrasion of righ t lower leg, initial encounter / S80.811A(ICD-10) JM CAUSEY Active [facility] 06/16/2025 Active Abrasion, knee, left, initial encounter / S80.212A(ICD-10) JM CAUSEY Active [facility] 06/13/2025 Active Warfarin anticoagulation / Z79.01(ICD-10) NA Active [facility] 06/02/2025 Active Wounds, multiple / T07.XXXA(ICD-10) [facility] 05/31/2025 Active Pain of left low er extremity / M79.605(ICD-10) [facility] 05/31/2025 Active Tachycardia / R00.0(ICD-10) [facility] 03/18/2024 Active ESRD (end stage renal disease) (HCC) / N18.6(ICD-10) [facility] 04/27/2025 Active Skin ulcers (HCC ) / L98.499(ICD-10) [facility] 04/23/2025 Active Bleeding from wo und / T14.8XXA(ICD-10) [facility] 04/21/2025 Active Bleeding from op en wound of chest wall, right, initial encounter / S21.101A(ICD-10) [facility] 04/21/2025 Active S/P MVR (mitral valve replacement) / Z95.2(ICD-10) [facility] 04/20/2025 Active Wound infection / T14.8XXA(ICD-10) [facility] 04/20/2025 Active Wound infection / L08.9(ICD-10) [facility] 04/20/2025 Active Wound pain / T14.8XXA(ICD-10) [facility] 01/05/2025 Admitting Diagnosis Pressure ulcer of left lower back, stage 3 (HCC) / L89.143(ICD-10) LEONARDO KINNEY Active [facility] 01/05/2025 Admitting Diagnosis Non-pressure chronic ulcer of skin of other sites with fat layer exposed (HCC) / L98.492(ICD-10) LEONARDO KINNEY Active [facility] 03/18/2024 Active Anemia due to ch ronic kidney disease, on chronic dialysis (HCC) / N18.6(ICD-10) SILVIANO BELL [facility] 03/18/2024 Active Anemia due to ch ronic kidney disease, on chronic dialysis (HCC) / D63.1(ICD-10) JUANCARLOS BELLNIS [facility] 03/18/2024 Active Anemia due to ch ronic kidney disease, on chronic dialysis (HCC) / Z99.2(ICD-10) CHANG SILVIANO [facility] 12/28/2024 Active Chronic ulcer of back (HCC) / L98.429(ICD-10) CHANG [facility] 12/28/2024 Active Ulcer of abdomen wall, limited to breakdown of skin (HCC) / L98.491(ICD-10) CHANG [facility] 12/28/2024 Active Ulcer of skin of breast (HCC) / L98.499(ICD-10) JUANCARLOS BELLNIS [facility] 12/26/2024 Principle diagnosis Unspecified open wound of left front wall of thorax without penetration into thoracic cavity, initial encounter / S21.102A(ICD-10) [facility] 12/26/2024 Principle 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 Author Type: Physician Mannequin Mold Maker Type: Progress Notes Filed: 06/16/2025 11:35 Note [...] left knee: Mild arthritic changes. ALMA ROSA CatalanOV Observed: 06/16/2025 8:40 AM Status: COMPLETED Source: [facility] Office Visit (ORTHMN) ELIA WESTON ([id number]) 1980 M [facility] Date Time Provider Department 06/16/25 8:40 [...] have any concerns. Referring Provider: RIVAS SOLITARIO [[id number]] Allergies As of Date: 06/16/2025 Noted Allergy Reaction GABAPENTIN 08/09/2021 16 - Unknown 14 - Other: See Comments TRAZODONE 10/11/2024 14 - Other: See Comments Comments: Fidgety Date Reviewed: 06/16/2025 Reviewed by: Walt Martinez OCCA - Fully Assessed Reason for Visit: New [[id number]] Knee Pain [132] Primary Visit Diagnosis:Abrasion of right lower leg, initial encounter [S80.811A] Other Visit Diagnosis:Abrasion, knee, left, initial encounter [S80.212A] Prescriptions as of 06/16/2025 - warfarin (COUMADIN) 4 mg tablet Take 1 tablet by mouth once daily. - warfarin (COUMADIN) 4 mg tablet Take 1 tablet by mouth every Vrvktk-Ldvwxrz-Htqcsrkiz-Friday-Friday - Cinacalcet HCl (SENSIPAR) 30 mg tablet [...] ESRD (end stage renal disease) on dialysis ([facility]*10/16/2012 HTN (hypertension) [I10] 10/16/2012 Obesity [E66.9] 11/02/2012 Epigastric pain [R10.13] 11/02/2012 Mechanical complication of other vascular devic*02/12/2013 Pain and swelling of knee, left [M25.562, M25.4*07/29/2013 Obesity, morbid, BMI 40.0-49.9 ([facility]) [E66.01] 02/22/2014 Tendinitis of left shoulder [M77.8] 02/22/2014 Mass of left thigh [R22.42] 09/08/2014 Thigh pain [M79.659] 09/08/2014 Hematuria [R31.9] 12/08/2014 Dialysis patient ([facility]) [Z99.2] 12/08/2014 YEIMY (obstructive sleep apnea) [G47.33] 05/09/2015 Abdominal or pelvic swelling, mass, or lump, ri*05/09/2015 Secondary hyperparathyroidism, renal (HCC) [N25*05/09/2015 Renal osteodystrophy [N25.0] 05/09/2015 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*05/09/2015 Groin pain [R10.30] 05/09/2015 Personal history of DVT (deep vein thrombosis) *03/28/2016 Sprain of medial collateral ligament of right k*04/22/2016 ESRD (end stage renal disease) ([facility]) [N18.6] 04/21/2019 PAF (paroxysmal atrial fibrillation) ([facility]) [I48*12/02/2018 A-V fistula ([facility]) [I77.0] 04/23/2019 Anemia of chronic disease [D63.8] 04/23/2019 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] 05/18/2021 ESRD on hemodialysis ([facility]) [N18.6, Z99.2] 04/07/2019 Expressive dysphasia [R47.02] 08/01/2021 History of endocarditis [Z86.79] 08/01/2021 Hearing loss [H91.90] 02/17/2018 History of non-ST elevation myocardial infarcti*11/08/2019 Heart failure, unspecified ([facility]) [I50.9] 08/05/2011 Iron deficiency anemia, unspecified [D50.9] 05/31/2008 Chronic anticoagulation [Z79.01] 08/01/2021 Mitral valve disease [I05.9] 08/01/2021 Myocardial infarction ([facility]) [I21.9] 08/01/2021 Noncompliance with medication regimen [Z91.148] 08/01/2021 Paroxysmal atrial flutter ([facility]) [I48.92] 08/01/2021 Pulmonary embolism ([facility]) [I26.99] 08/01/2021 Pulmonary edema [J81.1] 08/01/2021 Stenosis of other vascular prosthetic devices, *05/22/2021 Unspecified atherosclerosis of [place] arteries *10/30/2013 Vitamin D deficiency [E55.9] 10/16/2020 [...] History of mechanical aortic valve replacement *06/03/2025 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 [Z79.*06/09/2025 Other instructions [...] for Encounter Date Provider Department Center 06/16/2025 [id number] CAUSEY Encounter Status:Closed by JM CAUSEY on 06/16/25 MELE Observed: 06/14/2025 12:00 AM Status: COMPLETED Source: [facility] Telephone (PHARAV) ELIA WESTON ([id number]) 1980 M [facility] Date Time Provider Department 06/14/25 GENEVA LEACH During your visit today, we recorded the following information about you: Geneva Leach [facility] 06/14/2025 1:35 PM Signed [facility] Anticoagulation Episode Summary Anticoagulation Care Providers Provider Role Specialty Phone number Pablo Vang MD Referring Internal Medicine [phone] Elia Herrera Enrico is a 45 year [...] H/o mitral valve replacement with mechanical valve residential (current) use of 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s Anticoagulation Episode Summary [...] missed any doses of warfarin. Geneva Leach [facility] Clinical Pharmacist, Pharmacy Anticoagulation Clinic Pharmacy Anticoagulation Clinic Pager: [phone]. Geneva Leach [facility] 06/20/2025 8:03 AM Signed Stan Hernandez - Are you able to reach out to patient to get a follow up at your Coumadin Clinic? Thank you - Geneva Leach PharmD., Bhakti Whitman, RACHEL 06/20/2025 9:53 AM Signed LEFT MESSAGE FOR PATIENT TO CALL OFFICE Geneva Leach [facility] 06/20/2025 3:45 PM Signed Called patient re: lack of PT/INR in process and unable to leave a VM as it is not set up, . Tried secondary phone number [phone] (home) and it stated wireless customer is unavailable. Left voice message asking patient's spouse Irma Weston [phone] to call the Anticoagulation Clinic at [phone]. Timbo PackD., Samra Jo [facility] 06/21/2025 4:08 PM Signed No INR available or in process. Called and spoke to patient. He will go to lab tomorrow (06/22). Pushpa Fernandez RPh 06/22/2025 2:34 PM Signed Pt did not go to the lab today. Will call when INR returns. He does have a late appt tomorrow (06/23) with Family med so will see if he goes then. Pushpa Fernandez [facility] Allergies As of Date: 06/14/2025 Noted Allergy [...] mitral valve replacement with mechanical valve [Z95.2] residential (current) use of 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s [Z79.01] Prescriptions as of 06/22/2025 - warfarin (COUMADIN) 4 mg tablet Take 1 tablet by mouth once daily. - warfarin (COUMADIN) 4 mg tablet Take 1 tablet by mouth every Wipgex-Flfavdt-Rgozjrjyu-Friday-Friday - Cinacalcet HCl (SENSIPAR) 30 mg tablet [...] ESRD (end stage renal disease) on dialysis ([facility]*10/16/2012 HTN (hypertension) [I10] 10/16/2012 Obesity [E66.9] 11/02/2012 Epigastric pain [R10.13] 11/02/2012 Mechanical complication of other vascular devic*02/12/2013 Pain and swelling of knee, left [M25.562, M25.4*07/29/2013 Obesity, morbid, BMI 40.0-49.9 ([facility]) [E66.01] 02/22/2014 Tendinitis of left shoulder [M77.8] 02/22/2014 Mass of left thigh [R22.42] 09/08/2014 Thigh pain [M79.659] 09/08/2014 Hematuria [R31.9] 12/08/2014 Dialysis patient ([facility]) [Z99.2] 12/08/2014 YEIMY (obstructive sleep apnea) [G47.33] 05/09/2015 Abdominal or pelvic swelling, mass, or lump, ri*05/09/2015 Secondary hyperparathyroidism, renal ([facility]) [N25*05/09/2015 Renal osteodystrophy [N25.0] 05/09/2015 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*05/09/2015 Groin pain [R10.30] 05/09/2015 Personal history of DVT (deep vein thrombosis) *03/28/2016 Sprain of medial collateral ligament of right k*04/22/2016 ESRD (end stage renal disease) ([facility]) [N18.6] 04/21/2019 PAF (paroxysmal atrial fibrillation) ([facility]) [I48*12/02/2018 A-V fistula ([facility]) [I77.0] 04/23/2019 Anemia of chronic disease [D63.8] 04/23/2019 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] 05/18/2021 ESRD on hemodialysis ([facility]) [N18.6, Z99.2] 04/07/2019 Expressive dysphasia [R47.02] 08/01/2021 [...] vascular prosthetic devices, *05/22/2021 Unspecified atherosclerosis of [place] arteries *10/30/2013 Vitamin D deficiency [E55.9] 10/16/2020 [...] History of mechanical aortic valve replacement *06/03/2025 residential (current) use of 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s [Z79.*06/09/2025 Encounter Status:Closed by GENEVA LEACH on 06/14/25 PT PNL PPP Collected: 06/13/2025 5:09 PM Status: F Source: [facility] Order Comment: Specimen Type : BLOOD SPECIMEN Ordering Facility: [facility] Address: [address] [place] [address] TYPE CODE TESTS RESULT OUT OF RANGE REFERENCE UNITS LAB 5902-2(LOINC) Prothrombin time 21.9 High 9.7-13.0 sec LAB 6301-6(LOINC) INR PPP 2.1 High 0.9-1.3 Result Comment: Vitamin K An tagonist (VKA) Therapeutic Range: INR 2 to 3 (Target INR of 2.5) Note: For patients treated with VKA drugs, such as warfarin, the [place] [employer] 2012 Guideline recommends [...] Chest 2012, 141:7S-47S Kevin RUSHING, et al. [facility] 2017, 70: 252-289 Performed By: #### 13696-2 # ### [facility] CLIA [id number] [address] [place] [address] CNPN Observed: 06/13/2025 12:00 AM Status: COMPLETED Source: [facility] Telephone (CARDMN) ELIA WESTON ([id number]) 1980 M T Date Time Provider Department [...] Dept Phone 06/16/2025 8:40 AM JM CAUSEY [facility] [phone] 06/17/2025 4:20 PM PABLO VANG [facility] [phone] 07/08/2025 11:15 AM [facility] [phone] 08/09/2025 10:40 AM DELVIN BELTRAN [facility] [phone] Any scheduling issues:Yes, Provided patient with appointment [...] tablet Take 1 tablet by mouth every Jeklet-Rscibty-Fzihyociq-Friday-Friday - Cinacalcet HCl (SENSIPAR) 30 mg tablet [...] ESRD (end stage renal disease) on dialysis ([facility]*10/16/2012 HTN (hypertension) [I10] 10/16/2012 Obesity [E66.9] 11/02/2012 Epigastric pain [R10.13] 11/02/2012 Mechanical complication of other vascular devic*02/12/2013 Pain and swelling of knee, left [M25.562, M25.4*07/29/2013 Obesity, morbid, BMI 40.0-49.9 ([facility]) [E66.01] 02/22/2014 Tendinitis of left shoulder [M77.8] 02/22/2014 Mass of left thigh [R22.42] 09/08/2014 Thigh pain [M79.659] 09/08/2014 Hematuria [R31.9] 12/08/2014 Dialysis patient ([facility]) [Z99.2] 12/08/2014 YEIMY (obstructive sleep apnea) [G47.33] 05/09/2015 Abdominal or pelvic swelling, mass, or lump, ri*05/09/2015 Secondary hyperparathyroidism, renal ([facility]) [N25*05/09/2015 Renal osteodystrophy [N25.0] 05/09/2015 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*05/09/2015 Groin pain [R10.30] 05/09/2015 Personal history of DVT (deep vein thrombosis) *03/28/2016 Sprain of medial collateral ligament of right k*04/22/2016 ESRD (end stage renal disease) ([facility]) [N18.6] 04/21/2019 PAF (paroxysmal atrial fibrillation) ([facility]) [I48*12/02/2018 A-V fistula ([facility]) [I77.0] 04/23/2019 Anemia of chronic disease [D63.8] [...] vascular prosthetic devices, *05/22/2021 Unspecified atherosclerosis of [place] arteries *10/30/2013 Vitamin D deficiency [E55.9] 10/16/2020 [...] History of mechanical aortic valve replacement *06/03/2025 residential (current) use of 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s [Z79.*06/09/2025 Encounter Status:Closed by CAMI BURGOS on 06/13/25 PROGRESS Observed: 06/10/2025 1:25 PM Status: COMPLETED Source: [facility] HNO ID: [id number] Author: PABLO VANG MD Service: ? Author [...] Observed: 06/08/2025 6:10 PM Status: COMPLETED Source: [facility] HNO ID: [id number] Author: ?, ?, ? Service: ? Author Type: ? Type: Discharge Summary Filed: 06/10/2025 11:50 Note Text: DIALYSIS DISCHARGE CORRESPONDENCE NOTE NEPHROLOGY Q6/ESRD SERVICE Name of outpatient dialysis unit: [facility], Loading Dock Hand: Dr. Melendez, Fax number: [phone] Clinical plan faxed to outpatient dialysis unit [...] yes, Date: 06/10/2026, Time: 11:50 AM [facility] [phone] for any question about inpatient nephrology care. SIGNATURE: Joselyn Rivera Pss PATIENT NAME: Elia Weston DATE: June 10, 2025 TIME: 11:46 AM PAGER: CASE MANAGEM Observed: 06/08/2025 3:42 PM Status: COMPLETED Source: [facility] HNO ID: [id number] Author: DALE PETERSON LISW Service: Care Management Author Type: Water Supply Technician Type: Care Mgt Progress Note Filed: 06/08/2025 15:44 Note Text: CARE MANAGEMENT DISCHARGE NOTE SERVICE DATE: June 08, 2025 SERVICE TIME: 3:43 PM Admission Date: 05/31/2025 LOS: 8 days Discharge Arrangement Discharge Arrangement: Home with Home Health Home Care: Nursing Services Arranged [facility] Caregiver Assessment Caregiver is ready, willing and able to meet the patient's needs as recommended by the inter-professional team: Yes Transportation Arrangements Transportation Arrangements: Car Discharge Information Row Name ED to Hosp-Admission (Current) from 05/31/2025 in HOSP MAIN H081 Home Health Care Agency [facility] [phone] DC planned for today Patient will dc home with [facility] 24-48 hours SIGNATURE: PACO Ross PATIENT NAME: Elia Weston DATE: June 08, 2025 TIME: 3:43 PM PLAN OF CARE Observed: 06/08/2025 2:44 PM Status: COMPLETED Source: [facility] ID: [id number] Author: ALEJANDRA CAMEJO, ? Service: Pharmacy Author Type: Political Organizer Type: Plan of Care Filed: 06/08/2025 18:07 Note Text: PHARMACY BEDSIDE DELIVERY SERVICE Patient Name: Elia Weston The marked outpatient medications were Filled at: [facility] and delivered to the patient's bedside to patient Medication List CHANGE how you take these medications * warfarin 4 mg tablet Commonly known as: COUMADIN Take 1 tablet by mouth every Skcgyr-Bqmpxwj-Juudnfthg-Friday What changed: medication strength how much to [...] Observed: 06/08/2025 1:53 PM Status: COMPLETED Source: [facility] HNO ID: [id number] Author: RIVAS SOLITARIO MD Service: General Internal [...] Solitario MD Primary Service: JEFFREY Haq Attending: eBulah Ramey MD PATIENT CONDITION AT DISCHARGE: Stable [...] NOT A CONSULT TO WOUND CARE) (SPECIFY) ([place]), 7 Wounds Associated Order Comments: Plan - [...] cleanser and then pat dry. Apply Vashe ([place] # [id number]) saturated gauze and allow to sit on the wound for 5-10 minutes, gently remove and dry area. Apply 3M Skin Barrier or ConvaTec skin barrier wand to the skye-wound skin and allow to dry. Apply moistened Hydrofera Blue ([place] # [id number]) cut to fit wound and cover with [...] cleanser and then pat dry. Apply Vashe ([place] # [id number]) saturated gauze and allow to sit on the wound for 5-10 minutes, gently remove and dry area. Apply 3M Skin Barrier or ConvaTec skin barrier wand to the skye-wound skin and allow to dry. Apply a thin layer of Hydrogel to the wound, then gently fill the wound with Vashe ([place] # [id number]) moistened Kerlix and cover with a foam [...] off-load heels, while in bed. (oracle number [id number]) - Obtain Medline Comfort Gove Sheet (oracle number [id number]) and Turning wedge (oracle number [phone]) to off-load patient's coccyx/ischium every 2 hours. - Obtain Seating Cushion ([place] # [id number]) and use when patient is up to [...] Center 06/16/2025 8:40 AM [facility] 06/17/2025 4:20 PM Pablo Vang MD FAMPWS [facility] 07/08/2025 11:15 AM DEVICE CLINIC CAEPMN [facility] 08/09/2025 10:40 AM [facility] 08/15/2025 7:30 AM EKGJ1-4 MAIN [id number] [facility] 08/15/2025 8:00 AM Patria Rios APRN.INDUSTRIAL TECHNOLOGIST CARDMN [facility] ALLERGIES Allergen Reactions Gabapentin Unknown, Other: See Comments Trazodone Other: See Comments Fidgety DISCHARGE MEDICATION: Medication List CHANGE how you take these medications * warfarin 4 mg tablet Commonly known as: COUMADIN Take 1 tablet by mouth every Cgzhvu-Cwnutde-Rubkfytpq-Friday-Friday What changed: You were already taking a [...] Your Medications These medications were sent to [facility] [address] [place] [address] Hours: Friday-Friday 7am-8pm, Friday, Friday and Holidays 9am-5pm warfarin 4 mg tablet warfarin 5 mg tablet The patient's risk for 30-day readmission is determined using the following contributing factors: Predictive Model Details 26% (Moderate) Factor Value Calculated 06/08/2025 05:19 20% diagnosis count 67 [facility] READMISSION RISK Model -13% Facility [facility] 13% Admissions (60d) 2 8% Creatinine (Min) 5.22 8% RDW (Max) 18.5 7% Admissions (90d) 2 6% Malnutrition 1 -6% ED Encounter 0 5% [facility]% Observations (365d) 0 Plan of care discussed [...] making follow-up arrangements Rivas Solitario MD mobile- [phone] PROGRESS Observed: 06/08/2025 1:36 PM Status: COMPLETED Source: [facility] HNO ID: [id number] Author: FRANCISCO NAGY RT(R) Service: ? Author [...] PATIENT PRESENTS WITH AN IMPLANTABLE OR ATTACHED INSTRUMENT MAKER AND REPAIRER: No RADIOLOGY DEPARTMENT: Ultrasound PERIPHERAL IV DATA: Not applicable SIGNED BY: RT Leonidas(R) June 08, 2025 1:36 PM US CHEST WALL/SOFT TISSUE Observed: 05/30 1:35 PM Status: F Source: [facility] * * *Final Report* * * DATE OF EXAM: Jun 08 2025 1:35PM [facility] 1047 - US CHEST WALL/SOFT TISSUE / [...] as seen on the recent chest CT. Market Relationship Manager: PSCB Transcribe Date/Time: Jun 08 2025 1:53P Dictated by : CORY GRIFFITH MD This examination was interpreted and the report reviewed and electronically signed by: CORY GRIFFITH MD on Jun 08 2025 1:54PM EST [id number] CONSULT PROG Observed: 06/08/2025 10:08 AM Status: COMPLETED Source: [facility] HNO ID: [id number] Author: LUCILLE GOMEZ APRN.INDUSTRIAL TECHNOLOGIST Service: Nephrology Author Type: Nurse Practitioner Type: [...] 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, PR, PE, CVA, CHB, colitis, Adjustment Disorder With [...] of first HD: 2005 -Current HD unit: [facility] -Loading Dock Hand: Dr Melendez -Schedule: Fri-Fri-Fri -Time: 4.5 hrs -EDW: 114 kg -Date of last outpatient dialysis: 04/18/25 -Access: R IJ TDC 04/29/2025 s/p S/p 04/29 venogram , 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 -EDW [...] 10 ml/min Outpatient dialysis disposition plan: contact [phone] and ask to speak with the help desk consultant as needed for assistance with post-discharge arrangements. Please DO NOT schedule patient for a nephrology follow up appointment. Kidney care will be provided by the primary member of technical staff at their dialysis unit upon hospital discharge. SIGNATURE: Lucille Gomez APRN.CNP PATIENT NAME: Elia Weston DATE: June 08, 2025 TIME: 10:08 AM PAGER: [phone] FOR AFTER HOUR CONCERNS BETWEEN 5PM - 7AM CONTACT ON-CALL NEPHROLOGY FELLOW [phone] Disclosures: Parts of the current progress note may have been copied from a previous note. CBC PNL BLD AUTO Collected: 6:55 AM Status: F Source: [facility] Order Comment: Specimen Type : BLOOD SPECIMEN Ordering Facility: [facility] Address: [address] [place] [address] TYPE CODE TESTS RESULT OUT OF RANGE [...] MCHC RBC Auto-mCnc 30.9 30.5-36.0 g/dL LAB 80603-5(LOINC) RDW RBC-Rto 17.3 High 11.5-15.0 % LAB 777-3(LOINC) Platelet # Bld Auto 128 Low 150-400 k/uL Result Comment: Results chec ked and verified.No clot detected. LAB 44025-9(LOINC) PMV Bld Auto 11.4 9.0-12.7 fL LAB 771-6(LOINC) nRBC # Bld Auto <0.01 <0.01 k/uL Performed By: #### 08991-9 # ### [facility] CLIA [id number] [address] [place] [address] STATES OF [facility] PT PNL PPP Collected: 06/08/2025 6:55 AM Status: F Source: [facility] Order Comment: Specimen Type : BLOOD SPECIMEN Ordering Facility: [facility] Address: [address] [place] [address] TYPE CODE TESTS RESULT OUT OF RANGE REFERENCE UNITS LAB 5902-2(INC) Prothrombin time 29.8 High 9.7-13.0 sec LAB 6301-6(LOINC) INR PPP 3.0 High 0.9-1.3 Result Comment: Vitamin K An tagonist (VKA) Therapeutic Range: INR 2 to 3 (Target INR of 2.5) Note: For patients treated with VKA drugs, such as warfarin, the [place] College of [employer]icians 2012 Guideline recommends [...] Chest 2012, 141:7S-47S Kevin RA, et al. [facility] 2017, 70: 252-289 Performed By: #### 82170-1 # ### [facility] CLIA [id number] [address] [place] [address] [place] COMP METAB 2000 PNL SERPL Collected: 6:55 AM Status: F Source: [facility] Order Comment: Specimen Type : BLOOD SPECIMEN Ordering Facility: [facility] Address: [address] [place] [address] TYPE CODE TESTS RESULT OUT OF RANGE REFERENCE UNITS LAB 2885-2(LOINC) Prot SerPl-mCnc 7.2 6.3-8.0 g/dL LAB 1751-7(LOINC) Albumin SerPl-mCnc 3.7 Low 3.9-4.9 g/dL LAB 24845-0(LOINC) Calcium SerPl-mCnc 8.3 Low 8.5-10.2 mg/dL LAB 1974-2(LOINC) Bilirub SerPl-mCnc 0.3 0.2-1.3 mg/dL LAB 6768-6(LOINC) ALP SerPl-cCnc 127 High 38-113 U/L LAB 1920-8(LOINC) AST SerPl-cCnc 22 14-40 U/L LAB 1742-6(LOINC) ALT SerPl-cCnc 11 10-54 U/L LAB 2345-7(LOINC) Glucose SerPl-mCnc 87 74-99 mg/dL Result Comment: The [place] Diabetes Association (ADA) provides guidance for cutoff [...] Standards of Medical Care in Diabetes 2016, [place] Diabetes Association. Diabetes Care. 2016.39(Suppl 1). LAB 3094-0(LOINC) BUN SerPl-mCnc 25 High 9-24 mg/dL LAB 2160-0(LOINC) Creat SerPl-mCnc 6.70 High 0.73-1.22 mg/dL LAB 2951-2(LOINC) Sodium SerPl-sCnc 145 High 136-144 mmol/L LAB 2823-3(LOINC) Potassium SerPl-sCnc 4.7 3.7-5.1 mmol/L LAB 2075-0(LOINC) Chloride SerPl-sCnc 98 98-107 mmol/L LAB 2028-9(LOINC) CO2 SerPl-sCnc 27 22-30 mmol/L LAB 83906-2(LOINC) Anion Gap SerPl-sCnc 20 High 8-15 mmol/L LAB 14866-2(LOINC) eGFRcr SerPlBld CKD-EPI 2020 10 Low >=60 [...] accurately reflect actual GFR. Performed By: #### 69464-1 # ### [facility] CLIA [id number] [address] [place] [address] OF [place] PLAN OF CARE Observed: 06/07/2025 4:57 PM Status: COMPLETED Source: [facility] HNO ID: [id number] Author: Arline BRITTON MD Service: General Internal Medicine Author Type: Resident Type: Plan of Care Filed: 06/07/2025 16:58 Note Text: Left chest wall swelling Spoke to Dr. Rubio (Thoracics resident on-call) - kindly reviewed CT chest and imaging not c/w hematoma. Can consider symptomatic treatment, chest wall wrapping. No further action/imaging/intervention needed. Arline Britton MD Internal Medicine Resident, PGY-2 [facility] (click to page) 06/07/2025 ALLIED HEALTH Observed: 06/07/2025 4:49 PM Status: COMPLETED Source: [facility] HNO ID: [id number] Author: SHANNON HOOD Music Therapist Service: Music [...] a nostalgic Youtube video of a preferred rn imaging preaching and singing in a devotional style. [...] 07, 2025 TIME: 4:49 PM PAGER/CONTACT #: [phone] THERAPY NT Observed: 06/07/2025 4:40 PM Status: COMPLETED Source: [facility] ID: [id number] Author: MARÍA ESPARZA, PT, DPT Service: Physical Therapy Author Type: Associate Director Type: Therapy (PT/OT/Speech/Resp) Filed: 06/08/2025 07:34 Note Text: Attestation signed by María Esparza PT, DPT at 06/08/2025 7:34 AM I reviewed and agree with the documentation corresponding to this therapy visit. SIGNATURE: María Esparza PT DPT DATE: June 08, 2025 TIME: 7:34 AM PHYSICAL THERAPY MISSED VISIT SERVICE DATE: 06/07/2025 SERVICE TIME: 1638 ROOM: [place] [address] Patient not seen due to Patient Not Available, nsg performing dressing changes at bedside. SIGNATURE: Artie Chi PTA PATIENT NAME: Elia Weston DATE: June 07, 2025 TIME: 4:40 PM PROGRESS Observed: 06/07/2025 3:51 PM Status: COMPLETED Source: [facility] HNO ID: [id number] Author: RIVAS SOLITARIO MD Service: General Internal Medicine Author Type: Physician Type: Progress Notes Filed: 06/07/2025 19:41 Note Text: Internal Medicine Progress Note Patient Name: Elia Weston Patient Location: [place] [address] Admission Date: 05/31/2025 Length of Stay: 7 Primary Service: JEFFREY Haq Staff: Rivas Solitario MD From 5pm - 7am, [place] [phone]. INTERVAL HISTORY: Due to swelling in left [...] Dialysis / Apheresis Double Lumen 04/29/25 1005 [facility] Tunneled Right Internal Jugular 39 days Peripheral 05/31/25 0223 [facility] Short Left Forearm 20 Gauge 7 days Peripheral 06/02/25 0100 [facility] Right Forearm 20 Gauge 5 days Intake/Output [...] -- 05/31/25 1145 activity - mobilize patient (nv,ct) VTE Prophylaxis: VTE prophylaxis appropriate Harris Dennis [...] Patient and residents . Rivas Solitario MD [facility] [phone] PT PNL PPP Collected: 06/07/2025 9:53 AM Status: F Source: [facility] Order Comment: Specimen Type : BLOOD SPECIMEN Ordering Facility: [facility] Address: [address] [place] [address] TYPE CODE TESTS RESULT OUT OF RANGE REFERENCE UNITS LAB 5902-2(LOINC) Prothrombin time 31.7 High 9.7-13.0 sec LAB 6301-6(LOINC) INR PPP 3.2 High 0.9-1.3 Result Comment: Vitamin K An tagonist (VKA) Therapeutic Range: INR 2 to 3 (Target INR of 2.5) Note: For patients treated with VKA drugs, such as warfarin, the [place] College of Chest Physicians 2012 Guideline recommends [...] Chest 2012, 141:7S-47S Kevin RUSHING, et al. [facility] 2017, 70: 252-289 Performed By: #### 59125-7 # ### [facility] CLIA [id number] [address] [place] [address] [place] [address] [place] COMP METAB 2000 PNL SERPL Collected: 9:53 AM Status: F Source: [facility] Order Comment: Specimen Type : BLOOD SPECIMEN Ordering Facility: [facility] Address: [address] [place] [address] TYPE CODE TESTS RESULT OUT OF RANGE REFERENCE UNITS LAB 2885-2(LOINC) Prot SerPl-mCnc 7.4 6.3-8.0 g/dL LAB 1751-7(LOINC) Albumin SerPl-mCnc 3.7 Low 3.9-4.9 g/dL LAB 92579-8(LOINC) Calcium SerPl-mCnc 8.7 8.5-10.2 mg/dL LAB 1975-2(LOINC) Bilirub SerPl-mCnc 0.4 0.2-1.3 mg/dL LAB 6768-6(LOINC) ALP SerPl-cCnc 131 High 38-113 U/L LAB 1920-8(LOINC) AST SerPl-cCnc 22 14-40 U/L LAB 1742-6(LOINC) ALT SerPl-cCnc 12 10-54 U/L LAB 2345-7(LOINC) Glucose SerPl-mCnc 75 74-99 mg/dL Result Comment: The [place] Diabetes Association (ADA) provides guidance for cutoff [...] Standards of Medical Care in Diabetes 2016, [place] Diabetes Association. Diabetes Care. 2016.39(Suppl 1). LAB 3094-0(LOINC) BUN SerPl-mCnc 16 9-24 mg/dL LAB 2160-0(LOINC) Creat SerPl-mCnc 5.58 High 0.73-1.22 mg/dL LAB 2951-2(LOINC) Sodium SerPl-sCnc 140 136-144 mmol/L LAB 2823-3(LOINC) Potassium SerPl-sCnc 4.5 3.7-5.1 mmol/L LAB 2075-0(LOINC) Chloride SerPl-sCnc 98 98-107 mmol/L LAB 2028-9(LOINC) CO2 SerPl-sCnc 29 22-30 mmol/L LAB 95474-5(LOINC) Anion Gap SerPl-sCnc 13 8-15 mmol/L LAB 50105-0(LOINC) eGFRcr SerPlBld CKD-EPI 2020 12 Low >=60 [...] accurately reflect actual GFR. Performed By: #### 69050-6 # ### [facility] CLIA [id number] [address] [place] [address] [place] CBC PNL BLD AUTO Collected: 5 9:53 AM Status: F Source: [facility] Order Comment: Specimen Type : BLOOD SPECIMEN Ordering Facility: [facility] Address: [address] [place] [address] TYPE CODE TESTS RESULT OUT OF RANGE [...] RBC Auto-mCnc 30.3 Low 30.5-36.0 g/dL LAB 39555-2(LOINC) RDW RBC-Rto 17.5 High 11.5-15.0 % LAB 777-3(LOINC) Platelet # Bld Auto 117 Low 150-400 k/uL Result Comment: Results chec ked and verified.No clot detected. LAB 99343-6(LOINC) PMV Bld Auto 11.7 9.0-12.7 fL LAB 771-6(LOINC) nRBC # Bld Auto <0.01 <0.01 k/uL Performed By: #### 62533-8 # ### [facility] CLIA [id number] [address] [place] [address] CASE MANAGEM Observed: 06/07/2025 9:44 AM Status: COMPLETED Source: [facility] HNO ID: [id number] Author: KALANI DIEGO RN Service: Care Management [...] free lunch while waiting, if applicable. An hvac maintenance technician is also available to pts in the dc lounge. The lounge is not suitable for patients who require medication, isolation or treatment between discharge and pickup as well as those individuals with disruptive behavior or bladder/bowel incontinence. Dc Lounge Hours: M-F [phone]; for a weekend dc or dc after-hours Red Coat Attendants are available to assist. If your pt is eligible to utilize the dc lounge, please make pt aware that waiting in the dc lounge is the new standard of care at [facility] and place the order prior to dc. SIGNATURE: Kalani Diego RN PATIENT NAME: Elia Weston DATE: June 07, 2025 TIME: 9:44 AM NURSING PROG Observed: 06/06/2025 11:10 PM Status: COMPLETED Source: [facility] HNO ID: [id number] Author: ANTOLIN FINLEY RN Service: ? Author [...] (no units) Date Value 06/06/2025 3.4 (H) 6074 Eva Pimentel MD notified. THERAPY NT Observed: 06/06/2025 5:13 PM Status: COMPLETED Source: [facility] HNO ID: [id number] Author: JAQUELINE OLMSTEAD PT Service: Physical Therapy Author Type: Associate Director Type: Therapy (PT/OT/Speech/Resp) Filed: 06/07/2025 08:00 Note Text: Attestation signed by Jaqueline Olmstead PT at 06/07/2025 8:00 AM I reviewed and agree with the documentation corresponding to this therapy visit. SIGNATURE: Jaqueline Olmstead PT DATE: June 07, 2025 TIME: 8:00 AM PHYSICAL THERAPY MISSED VISIT SERVICE DATE: 06/06/2025 SERVICE TIME: 849 ROOM: [place] [address] Patient not seen due to Test / Procedure, to SIGNATURE: Artie Chi PTA PATIENT NAME: Elia Weston DATE: June 06, 2025 TIME: 5:13 PM PLAN OF CARE Observed: 06/06/2025 4:45 PM Status: COMPLETED Source: [facility] HNO ID: [id number] Author: NANCY MEEK ? Service: Pharmacy Author Type: Political Organizer Type: Plan of Care Filed: 06/06/2025 16:45 Note Text: Insurance investigation completed Patient has active prescription insurance: Yes - Patient's insurance is in-network with [facility] Insurance loaded into [place]: Yes Test claim was completed to verify insurance is active: Successful Is patient eligible for [facility]? No Any questions, please reach out to your medication collection coordinator. PROGRESS Observed: 06/06/2025 4:34 PM Status: COMPLETED Source: [facility] HNO ID: [id number] Author: JARETH MRAK Tech Service: Radiology Author Type: Technologist Type: [...] PATIENT PRESENTS WITH AN IMPLANTABLE OR ATTACHED INSTRUMENT MAKER AND REPAIRER: No RADIOLOGY DEPARTMENT: CT; Exam(s) Completed: Chest. Anesthesia: No PERIPHERAL IV DATA: Not applicable SIGNED BY: Camilo Pepe June 06, 2025 4:[address] CHEST WO IVCON Observed: 06/06/2025 4:31 PM Status: F Source: [facility] * * *Final Report* * * DATE OF EXAM: Jun 06 2025 4:31PM [facility] 0541 - CT [...] of this region laterally is outside the gmjrl-bw-virb of this exam. No discrete fluid collection [...] dated 04/22/2025 which is partially outside the unjxv-nd-rgtf of this exam. This finding is nonspecific [...] larger compared to the prior chest CT. Market Relationship Manager: PSCB Transcribe Date/Time: Jun 06 2025 4:41P Dictated by : BENITO HAQUE MD This examination was interpreted and the report reviewed and electronically signed by: BENITO HAQUE MD on Jun 06 2025 5:06PM EST [id number] CONSULT PROG Observed: 06/06/2025 1:53 PM Status: COMPLETED Source: [facility] ID: [id number] Author: CAMILO NORTON PA-C Service: Nephrology Author Type: Physician Mannequin Mold Maker Type: Consult Progress Note Filed: 06/06/2025 13:55 Note Text: Department of Kidney Medicine Medical Specialties [place] [facility] Q6 NEPHROLOGY CONSULT SERVICE PROGRESS NOTE [...] Dialysis / Apheresis Double Lumen 04/29/25 1005 [facility] Tunneled Right Internal Jugular 38 days Peripheral 05/31/25 0223 [facility] Short Left Forearm 20 Gauge 6 days Peripheral 06/02/25 0100 [facility] Right Forearm 20 Gauge 4 days Labs: [...] 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 Kidney care will be provided by the primary member of technical staff at their dialysis unit upon hospital discharge. Camilo Norton PA-C Department of Kidney Medicine [facility] June 06, 2025 1:53 PM PAGER # [phone] Disclosures: Parts of the current progress note may have been copied from a previous note. FOR AFTER HOUR CONCERNS BETWEEN 5PM - 7AM CONTACT ON-CALL NEPHROLOGY FELLOW [id number] NUTRITION Observed: 06/06/2025 1:49 PM Status: COMPLETED Source: [facility] HNO ID: [id number] Author: BHASKAR RAMIREZ DTR Service: Nutrition Therapy Author Type: Java Engineer Type: Nutrition Filed: 06/06/2025 13:50 Note Text: NUTRITION THERAPY AGRICULTURAL SERVICE TECHNICIAN NOTE SERVICE DATE: 06/06/2025 SERVICE TIME: Start [...] unit SIGNATURE: Bhaskar Ramirez DTR PATIENT NAME: Elai Weston DATE: June 06, 2025 TIME: 1:49 PM CASE MANAGEM Observed: 06/06/2025 1:10 PM Status: COMPLETED Source: [facility] HNO ID: [id number] Author: KALANI DIEGO RN Service: Care Management [...] Observed: 06/06/2025 11:52 AM Status: COMPLETED Source: [facility] HNO ID: [id number] Author: KALANI DIEGO RN Service: Care Management [...] free lunch while waiting, if applicable. An hvac maintenance technician is also available to pts in the dc lounge. The lounge is not suitable for patients who require medication, isolation or treatment between discharge and pickup as well as those individuals with disruptive behavior or bladder/bowel incontinence. Dc Lounge Hours: M-F [phone]; for a weekend dc or dc after-hours Red Coat Attendants are available to assist. If your pt is eligible to utilize the dc lounge, please make pt aware that waiting in the dc lounge is the new standard of care at [facility] and place the order prior to dc. SIGNATURE: Kalani Diego RN PATIENT NAME: Elia Weston DATE: June 06, 2025 TIME: 11:52 AM ALLIED HEALTH Observed: 06/06/2025 10:00 AM Status: COMPLETED Source: [facility] ID: [id number] Author: LOLY GREWAL Art Therapist Service: Art [...] 06, 2025 TIME: 12:13 PM PAGER/CONTACT #: [phone] PROGRESS Observed: 06/06/2025 6:56 AM Status: COMPLETED Source: [facility] HNO ID: [id number] Author: RIVAS SOLITARIO MD Service: General Internal Medicine Author Type: Physician Type: Progress Notes Filed: 06/06/2025 17:40 Note Text: Internal Medicine Progress Note Patient Name: Elia Weston Patient Location: H081 015/[id number] Admission Date: 05/31/2025 Length of Stay: 6 Primary Service: JEFFREY Haq Staff: Rivas Solitario MD From 5pm - 7am, [place] [phone]. INTERVAL HISTORY: -NAEON Doing well this AM. [...] Dialysis / Apheresis Double Lumen 04/29/25 1005 [facility] Tunneled Right Internal Jugular 37 days Peripheral 05/31/25 0223 [facility] Short Left Forearm 20 Gauge 6 days Peripheral 06/02/25 0100 [facility] Right Forearm 20 Gauge 4 days Intake/Output [...] -- 05/31/25 1145 activity - mobilize patient (fl,ct) VTE Prophylaxis: VTE prophylaxis appropriate Harris Dennis [...] Patient and residents . Rivas Solitario MD [facility] [phone] CBC PNL BLD AUTO Collected: 5 6:41 AM Status: F Source: [facility] Order Comment: Specimen Type : BLOOD SPECIMEN Ordering Facility: [facility] Address: [address] [place] [address] TYPE CODE TESTS RESULT OUT OF RANGE [...] MCHC RBC Auto-mCnc 30.5 30.5-36.0 g/dL LAB 09879-9(LOINC) RDW RBC-Rto 17.5 High 11.5-15.0 % LAB 777-3(LOINC) Platelet # Bld Auto 131 Low 150-400 k/uL LAB 66706-0(LOINC) PMV Bld Auto 12.0 9.0-12.7 fL LAB 771-6([facility]) nRBC # Bld Auto <0.01 <0.01 k/uL Performed By: #### 26770-7 # ### [facility] CLIA [id number] [address] [place] [address] PT PNL PPP Collected: 06/06/2025 6:41 AM Status: F Source: [facility] Order Comment: Specimen Type : BLOOD SPECIMEN Ordering Facility: [facility] Address: [address] [place] [address] TYPE CODE TESTS RESULT OUT OF RANGE REFERENCE UNITS LAB 5902-2([facility]) Prothrombin time 33.5 High 9.7-13.0 sec LAB 6301-6([facility]) INR PPP 3.4 High 0.9-1.3 Result Comment: Vitamin K An tagonist (VKA) Therapeutic Range: INR 2 to 3 (Target INR of 2.5) Note: For patients treated with VKA drugs, such as warfarin, the [place] College of Chest [employer]icians 2012 Guideline recommends [...] JACC 2017, 70: 252-289 Performed By: #### 59344-5 # ### [facility] IA [id number] [address] [place] [address] [place] COMP METAB 2000 PNL SERPL Collected: 6:41 AM Status: F Source: [facility] Order Comment: Specimen Type : BLOOD SPECIMEN Ordering Facility: [facility] Address: [address], [place] [id number] TYPE CODE TESTS RESULT OUT OF RANGE REFERENCE UNITS LAB 2885-2(LOINC) Prot SerPl-mCnc 7.2 6.3-8.0 g/dL LAB 1751-7(LOINC) Albumin SerPl-mCnc 3.7 Low 3.9-4.9 g/dL LAB 80099-6(LOINC) Calcium SerPl-mCnc 8.0 Low 8.5-10.2 mg/dL LAB 1975-2(LOINC) Bilirub SerPl-mCnc 0.3 0.2-1.3 mg/dL LAB 6768-6(LOINC) ALP SerPl-cCnc 132 High 38-113 U/L LAB 1920-8(LOINC) AST SerPl-cCnc 26 14-40 U/L LAB 1742-6(LOINC) ALT SerPl-cCnc 12 10-54 U/L LAB 2345-7(LOINC) Glucose SerPl-mCnc 84 74-99 mg/dL Result Comment: The [place] Diabetes Association (ADA) provides guidance for cutoff [...] Standards of Medical Care in Diabetes 2016, [place] Diabetes Association. Diabetes Care. 2016.39(Suppl 1). LAB 3094-0(LOINC) BUN SerPl-mCnc 28 High 9-24 mg/dL LAB 2160-0(LOINC) Creat SerPl-mCnc 7.94 High 0.73-1.22 mg/dL LAB 2951-2(LOINC) Sodium SerPl-sCnc 141 136-144 mmol/L LAB 2823-3(LOINC) Potassium SerPl-sCnc 4.9 3.7-5.1 mmol/L LAB 2075-0(LOINC) Chloride SerPl-sCnc 99 98-107 mmol/L LAB 8-9(LOINC) CO2 SerPl-sCnc 26 22-30 mmol/L LAB 67006-6(LOINC) Anion Gap SerPl-sCnc 16 High 8-15 mmol/L LAB 52908-3(LOINC) eGFRcr SerPlBld CKD-EPI 2020 8 Low >=60 [...] accurately reflect actual GFR. Performed By: #### 40672-7 # ### [facility] CLIA [id number] [address] [place] [address] STATES OF [facility] PT PNL PPP Collected: 06/05/2025 3:01 PM Status: F Source: [facility] Order Comment: Specimen Type : BLOOD SPECIMEN Ordering Facility: [facility] Address: [address] [place] [address] TYPE CODE TESTS RESULT OUT OF RANGE REFERENCE UNITS LAB 5902-2(LOINC) Prothrombin time 26.8 High 9.7-13.0 sec LAB 6301-6(LOINC) INR PPP 2.6 High 0.9-1.3 Result Comment: Vitamin K An tagonist (VKA) Therapeutic Range: INR 2 to 3 (Target INR of 2.5) Note: For patients treated with VKA drugs, such as warfarin, the [place] College of Chest Physicians 2012 Guideline recommends [...] Chest 2012, 141:7S-47S Kevin RA, et al. [facility] 2017, 70: 252-289 Performed By: #### 09854-6 # ### [facility] CLIA [id number] [address] [place] [address] [place] CBC PNL BLD AUTO Collected: 5 3:01 PM Status: F Source: [facility] Order Comment: Specimen Type : BLOOD SPECIMEN Ordering Facility: [facility] Address: [address] [place] [address] TYPE CODE TESTS RESULT OUT OF RANGE [...] MCHC RBC Auto-mCnc 30.8 30.5-36.0 g/dL LAB 66719-4(LOINC) RDW RBC-Rto 17.2 High 11.5-15.0 % LAB 777-3(LOINC) Platelet # Bld Auto 147 Low 150-400 k/uL LAB 77327-7(LOINC) PMV Bld Auto 12.0 9.0-12.7 fL LAB 771-6(LOINC) nRBC # Bld Auto <0.01 <0.01 k/uL Performed By: #### 88242-2 # ### [facility] CLIA [id number] [address] [place], [place] [address] [address] [place] COMP METAB 2000 PNL SERPL Collected: 3:01 PM Status: F Source: [facility] Order Comment: Specimen Type : BLOOD SPECIMEN Ordering Facility: [facility] Address: [address] [place] [address] TYPE CODE TESTS RESULT OUT OF RANGE REFERENCE UNITS LAB 2885-2(LOINC) Prot SerPl-mCnc 7.7 6.3-8.0 g/dL LAB 1751-7(LOINC) Albumin SerPl-mCnc 3.8 Low 3.9-4.9 g/dL LAB 65910-2(LOINC) Calcium SerPl-mCnc 8.5 8.5-10.2 mg/dL LAB 1975-2(LOINC) Bilirub SerPl-mCnc 0.3 0.2-1.3 mg/dL LAB 6768-6(LOINC) ALP SerPl-cCnc 141 High 38-113 U/L LAB 1920-8(LOINC) AST SerPl-cCnc 29 14-40 U/L LAB 1742-6(LOINC) ALT SerPl-cCnc 17 10-54 U/L LAB 2345-7(LOINC) Glucose SerPl-mCnc 87 74-99 mg/dL Result Comment: The [place] Diabetes Association (ADA) provides guidance for cutoff [...] Standards of Medical Care in Diabetes 2016, [place] Diabetes Association. Diabetes Care. 2016.39(Suppl 1). LAB 3094-0(LOINC) BUN SerPl-mCnc 23 9-24 mg/dL LAB 2160-0(LOINC) Creat SerPl-mCnc 7.10 High 0.73-1.22 mg/dL LAB 2951-2(LOINC) Sodium SerPl-sCnc 140 136-144 mmol/L LAB 2823-3(LOINC) Potassium SerPl-sCnc 4.8 3.7-5.1 mmol/L LAB 2075-0(LOINC) Chloride SerPl-sCnc 97 Low 98-107 mmol/L LAB 2028-9(LOINC) CO2 SerPl-sCnc 26 22-30 mmol/L LAB 82053-2(LOINC) Anion Gap SerPl-sCnc 17 High 8-15 mmol/L LAB 30305-9(LOINC) eGFRcr SerPlBld CKD-EPI 2020 9 Low >=60 [...] accurately reflect actual GFR. Performed By: #### 80392-1 # ### [facility] CLIA [id number] [address] [place] [address] STATES OF [facility] ALLIED HEALTH Observed: 06/05/2025 2:08 PM Status: COMPLETED Source: [facility] HNO ID: [id number] Author: NOAH CORRIGAN Chaplain Service: Spiritual Care Author Type: Door Assembler Type: Allied Health Filed: 06/05/2025 14:10 Note Text: SPIRITUALCARE Spiritual Care Visit- Brief Note Name: Elia Weston Date: June 05, 2025 Notes: Spiritual Care follow up for Communion. Pt is Sabianist. Visited with pt and offered Communion as requested. Pt was appreciative of support. Spiritual Care remains available to follow up as needed/requested. SIGNATURE: Chaplain Stella PATIENT NAME: Elia Weston DATE: June 05, 2025 TIME: 2:08 PM This is an electronically created document. IF PRINTED, PLEASE DO NOT REMOVE FROM THE CHART OR MODIFY PRINTED COPY. PROGRESS Observed: 06/05/2025 7:27 AM Status: COMPLETED Source: [facility] HNO ID: [id number] Author: RIVAS SOLITARIO MD Service: General Internal Medicine Author Type: Physician Type: Progress Notes Filed: 06/05/2025 17:23 Note Text: Internal Medicine Progress Note Patient Name: Elia Weston Patient Location: H081 015/[id number] Admission Date: 05/31/2025 Length of Stay: 5 Primary Service: JEFFREY Haq Staff: Rivas Solitario MD From 5pm - 7am, [place] [phone]. INTERVAL HISTORY: -NAEON Doing well this AM. [...] Dialysis / Apheresis Double Lumen 04/29/25 1005 [facility] Tunneled Right Internal Jugular 37 days Peripheral 05/31/25 0223 [facility] Short Left Forearm 20 Gauge 5 days Peripheral 06/02/25 0100 [facility] Right Forearm 20 Gauge 3 days Intake/Output [...] -- 05/31/25 1145 activity - mobilize patient (nv,oh) VTE Prophylaxis: VTE prophylaxis appropriate Pool Kaur [...] and residents . Rivas Solitario MD Mobile- [phone] ALLIED HEALTH Observed: 06/04/2025 7:48 PM Status: COMPLETED Source: [facility] HNO ID: [id number] Author: CARLOS VILLANUEVA Chaplain Service: Spiritual Care Author Type: Type: Allied Health Filed: 06/04/2025 19:54 Note Text: SPIRITUAL CARE ASSESSMENT SERVICE DATE: 06/04/2025 SERVICE TIME: 1929 Visit with: Patient Length of visit (minutes): 15 Presybeterian / Spirituality: Sabianist Reason: Referral from: Physician Purpose of Referral [...] expressed gratitude PLAN Will make referral to clothes separator COMMENTS: Door Assembler introduced self and role to patient Elia Weston. Patient shared that he was discharged on Friday from a month and a half long admission and re-admitted on Friday. Patient expressed frustration with one thing after another happening and wanting to feel normal. 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 Usually music helps him cope but he has experienced especially bad days recently to the point that he does not want to listen to music at all. Patient expressed sadness that he will not be back at [facility] for first Friday jewish, which includes communion. Door Assembler asked if he would like to receive [...] 04, 2025 TIME: 7:48 PM PAGER/CONTACT #: [phone] THERAPY NT Observed: 06/04/2025 3:26 PM Status: COMPLETED Source: [facility] HNO ID: [id number] Author: LUIGI EVANS OT/L Service: Occupational Therapy Author Type: Occupational Therapist Type: Therapy (PT/OT/Speech/Resp) Filed: 06/04/2025 15:28 Note Text: Occupational Therapy Evaluation Summary SERVICE DATE: 06/04/2025 SERVICE TIME: 1353 to 1455 ROOM: [place] [address] OT 6 Clicks Score: 18 DISCHARGE RECOMMENDATIONS [...] completed bed mobility with min A for WHEEL FILLER. Pt completed STS and functional mobility with [...] daily living (ADL) TREATMENT INTERVENTIONS Evaluation, Self Prison Management (24288), Cognitive Training per First 15 Minutes (92122) Timed Code Treatment (minutes): 47 Skilled Treatment Time (minutes): 62 TRAINING AND EDUCATION PROVIDED Activity Adaptation/Compensatory Strategies, Bed Mobility, Benefits of In-Hospital Mobility, Discharge Planning, Functional Mobility Involving ADLs, IADLs/Home Management, Identification of Systems of Support, Life Roles/Routines/Habits, Role of Occupational Therapy, Safety/Judgment, Sitting Balance to Improve [place] with ADLs/Self-Care, Standing Balance to Improve [place] with ADLs/Self-Care, Transfer - Sit to Stand, [...] Observed: 06/04/2025 11:35 AM Status: COMPLETED Source: [facility] HNO ID: [id number] Author: LUIGI EVANS OT/L Service: Occupational Therapy Author Type: Occupational Therapist Type: Therapy (PT/OT/Speech/Resp) Filed: 06/04/2025 12:04 Note Text: OCCUPATIONAL THERAPY MISSED VISIT SERVICE DATE: 06/04/2025 SERVICE TIME: 1135 ROOM: [place] [address] (6 - DIALYSIS) Patient not seen due to Test / Procedure. (Will f/u as appropriate). 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 Please DO NOT schedule patient for a nephrology follow up appointment. Kidney care will be provided by the primary member of technical staff at their dialysis unit upon hospital discharge. SIGNATURE: Pau Glynn APRN.CNP PATIENT NAME: Elia Weston DATE: June 04, 2025 TIME: 12:40 PM PAGER: [phone] FOR AFTER HOUR CONCERNS BETWEEN 5PM - 7AM CONTACT ON-CALL NEPHROLOGY FELLOW [phone] Disclosures: Parts of the current progress note may have been copied from a previous note. PROGRESS Observed: 06/04/2025 6:58 AM Status: COMPLETED Source: [facility] ID: [id number] Author: RIVAS SOLITARIO MD Service: General Internal Medicine Author Type: Physician Type: Progress Notes Filed: 06/04/2025 17:59 Note Text: Internal Medicine Progress Note Patient Name: Elia Weston Patient Location: [place] [address] Admission Date: 05/31/2025 Length of Stay: 4 Primary Service: JEFFREY Haq Staff: Rivas Solitario MD From 5pm - 7am, [place] [phone]. INTERVAL HISTORY: -NAEON, afebrile, HDS -This morning [...] Dialysis / Apheresis Double Lumen 04/29/25 1005 [facility] Tunneled Right Internal Jugular 36 days Peripheral 05/31/25 0223 [facility] Short Left Forearm 20 Gauge 4 days Peripheral 06/02/25 0100 [facility] Right Forearm 20 Gauge 2 days Intake/Output [...] -- 05/31/25 1145 activity - mobilize patient (nv,ct) VTE Prophylaxis: VTE prophylaxis appropriate Signature: Pascale [...] Patient and residents . Rivas Solitario MD [place]- [phone] CBC PNL BLD AUTO Collected: 5 6:56 AM Status: F Source: [facility] Order Comment: Specimen Type : BLOOD SPECIMEN Ordering Facility: [facility] Address: [address] [place] [address] TYPE CODE TESTS RESULT OUT OF RANGE REFERENCE UNITS LAB 6690-2([facility]) WBC # Bld Auto 3.60 Low 3.70-11.00 k/uL LAB 789-8(INC) RBC # Bld Auto 2.80 Low 4.20-6.00 m/uL LAB 718-7([facility]) Hgb Bld-mCnc 8.2 Low 13.0-17.0 g/dL LAB 4544-3([facility]) Hct VFr Bld Auto 26.8 Low 39.0-51.0 % LAB 787-2([facility]) MCV RBC Auto 95.7 80.0-100.0 fL LAB 785-6([facility]) MCH RBC Qn Auto 29.3 26.0-34.0 pg LAB 786-4([facility]) MCHC RBC Auto-mCnc 30.6 30.5-36.0 g/dL LAB 07496-2([facility]) RDW RBC-Rto 17.4 High 11.5-15.0 % LAB 777-3([facility]) Platelet # Bld Auto 176 150-400 k/uL LAB 42308-1([facility]) PMV Bld Auto 11.5 9.0-12.7 fL LAB 771-6([facility]) nRBC # Bld Auto <0.01 <0.01 k/uL Performed By: #### 75753-8 # ### [facility] CLIA [id number] [address] [place] [address] [place] PT PNL PPP Collected: 06/04/2025 6:56 AM Status: F Source: [facility] Order Comment: Specimen Type : BLOOD SPECIMEN Ordering Facility: [facility] Address: [address] [place] [address] TYPE CODE TESTS RESULT OUT OF RANGE REFERENCE UNITS LAB 5902-2([facility]) Prothrombin time 28.2 High 9.7-13.0 sec LAB 6301-6([facility]) INR PPP 2.8 High 0.9-1.3 Result Comment: Vitamin K An tagonist (VKA) Therapeutic Range: INR 2 to 3 (Target INR of 2.5) Note: For patients treated with VKA drugs, such as warfarin, the [place] College of Chest [employer]icians 2012 Guideline recommends [...] JACC 2017, 70: 252-289 Performed By: #### 66662-2 # ### [facility] CLIA [id number] [address] [place] [address] [place] COMP METAB 2000 PNL SERPL Collected: 6:56 AM Status: F Source: [facility] Order Comment: Specimen Type : BLOOD SPECIMEN Ordering Facility: [facility] Address: [address] [place] [address] TYPE CODE TESTS RESULT OUT OF RANGE REFERENCE UNITS LAB 2885-2(LOINC) Prot SerPl-mCnc 7.4 6.3-8.0 g/dL LAB 1751-7(LOINC) Albumin SerPl-mCnc 3.7 Low 3.9-4.9 g/dL LAB 04899-2(LOINC) Calcium SerPl-mCnc 8.5 8.5-10.2 mg/dL LAB 1975-2(LOINC) Bilirub SerPl-mCnc 0.3 0.2-1.3 mg/dL LAB 6768-6(LOINC) ALP SerPl-cCnc 146 High 38-113 U/L LAB 1920-8(LOINC) AST SerPl-cCnc 30 14-40 U/L LAB 1742-6(LOINC) ALT SerPl-cCnc 17 10-54 U/L LAB 2345-7(LOINC) Glucose SerPl-mCnc 81 74-99 mg/dL Result Comment: The [place] Diabetes Association (ADA) provides guidance for cutoff [...] Standards of Medical Care in Diabetes 2016, [place] Diabetes Association. Diabetes Care. 2016.39(Suppl 1). LAB 3094-0(LOINC) BUN SerPl-mCnc 16 9-24 mg/dL LAB 2160-0(LOINC) Creat SerPl-mCnc 5.22 High 0.73-1.22 mg/dL LAB 2951-2(LOINC) Sodium SerPl-sCnc 142 136-144 mmol/L LAB 2823-3(LOINC) Potassium SerPl-sCnc 4.5 3.7-5.1 mmol/L LAB 2075-0(LOINC) Chloride SerPl-sCnc 97 Low 98-107 mmol/L LAB 2028-9(LOINC) CO2 SerPl-sCnc 28 22-30 mmol/L LAB 18285-7(LOINC) Anion Gap SerPl-sCnc 17 High 8-15 mmol/L LAB 06692-1(LOINC) eGFRcr SerPlBld CKD-EPI 2020 13 Low >=60 [...] accurately reflect actual GFR. Performed By: #### 95837-5 # ### [facility] CLIA [id number] [address] [place] [address] [place] THERAPY NT Observed: 06/03/2025 3:44 PM Status: COMPLETED Source: [facility] HNO ID: [id number] Author: JAQUELINE OLMSTEAD PT Service: Physical Therapy Author Type: Associate Director Type: Therapy (PT/OT/Speech/Resp) Filed: 06/03/2025 16:00 Note [...] Unsteadiness on feet TREATMENT INTERVENTIONS Gait Training (78184) Timed Code Treatment (minutes): 17 Skilled Treatment [...] Observed: 06/03/2025 2:48 PM Status: COMPLETED Source: [facility] HNO ID: [id number] Author: CAMILO NORTON PA-C Service: Nephrology Author Type: Physician Mannequin Mold Maker Type: Consult Progress Note Filed: 06/03/2025 14:51 Note Text: Department of Kidney Medicine Medical Specialties [place] [facility] Q6 NEPHROLOGY CONSULT SERVICE PROGRESS NOTE [...] Dialysis / Apheresis Double Lumen 04/29/25 1005 [facility] Tunneled Right Internal Jugular 35 days Peripheral 05/31/25 0223 [facility] Short Left Forearm 20 Gauge 3 days Peripheral 06/02/25 0100 [facility] Right Forearm 20 Gauge 1 day Labs: [...] 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 Kidney care will be provided by the primary member of technical staff at their dialysis unit upon hospital discharge. Camilo Norton PA-C Department of Kidney Medicine [facility] June 03, 2025 2:49 PM PAGER # [phone] Disclosures: Parts of the current progress note may have been copied from a previous note. FOR AFTER HOUR CONCERNS BETWEEN 5PM - 7AM CONTACT ON-CALL NEPHROLOGY FELLOW [phone] PROGRESS Observed: 06/03/2025 2:47 PM Status: COMPLETED Source: [facility] ID: [id number] Author: BEULAH RAMEY MD Service: General Internal Medicine Author Type: Physician Type: Progress Notes Filed: 06/03/2025 14:50 Note Text: [facility] STAFF PHYSICIAN NOTE OF PERSONAL INVOLVEMENT IN [...] ultrafiltration INR 2.5, Continue 5 mg Coumadin tonmanju Ramey MD, MEd, FACP Staff, Dept. Of Hospital Medicine PAGER - [phone] CASE MANAGEM Observed: 06/03/2025 11:43 AM Status: COMPLETED Source: [facility] HNO ID: [id number] Author: KALANI DIEGO RN Service: Care Management [...] RA. Pt remains on no notable IVs. pr specialist pt for OP therapy. Dialysis coordinator following. [...] free lunch while waiting, if applicable. An hvac maintenance technician is also available to pts in the dc lounge. The lounge is not suitable for patients who require medication, isolation or treatment between discharge and pickup as well as those individuals with disruptive behavior or bladder/bowel incontinence. Dc Lounge Hours: M-F [phone]; for a weekend dc or dc after-hours Red Coat Attendants are available to assist. If your pt is eligible to utilize the dc lounge, please make pt aware that waiting in the dc lounge is the new standard of care at [facility] and place the order prior to dc. SIGNATURE: Kalani Diego RN PATIENT NAME: Elia Weston DATE: June 03, 2025 TIME: 11:43 AM THERAPY NT Observed: 06/03/2025 7:44 AM Status: COMPLETED Source: [facility] HNO ID: [id number] Author: NAVARRO CHOW OTR/Javier OTByron Service: Occupational Therapy Author Type: Occupational Therapist Type: Therapy (PT/OT/Speech/Resp) Filed: 06/03/2025 07:44 Note Text: OCCUPATIONAL THERAPY MISSED VISIT SERVICE DATE: 06/03/2025 SERVICE TIME: 742 ROOM: [place] [address] (-1 [facility]) Patient not seen due to Test / Procedure. SIGNATURE: CLIFF Mckeon/YAA Herrera PATIENT NAME: Elia Weston DATE: June 03, 2025 TIME: 7:44 AM CBC PNL BLD AUTO Collected: 7:25 AM Status: F Source: [facility] Order Comment: Specimen Type : BLOOD SPECIMEN Ordering Facility: [facility] Address: [address] [place] [address] TYPE CODE TESTS RESULT OUT OF RANGE [...] MCHC RBC Auto-mCnc 30.9 30.5-36.0 g/dL LAB 13966-3(LOINC) RDW RBC-Rto 17.8 High 11.5-15.0 % LAB 777-3([facility]) Platelet # Bld Auto 193 150-400 k/uL LAB 53240-3([facility]) PMV Bld Auto 11.1 9.0-12.7 fL LAB 771-6([facility]) nRBC # Bld Auto <0.01 <0.01 k/uL Performed By: #### 03346-5 # ### [facility] CLIA [id number] [address] [place] [address] [place] COMP METAB 2000 PNL SERPL Collected: 7:25 AM Status: F Source: [facility] Order Comment: Specimen Type : BLOOD SPECIMEN Ordering Facility: [facility] Address: [address] [place] [address] TYPE CODE TESTS RESULT OUT OF RANGE REFERENCE UNITS LAB 2885-2([facility]) Prot SerPl-mCnc 7.2 6.3-8.0 g/dL LAB 1751-7([facility]) Albumin SerPl-mCnc 3.6 Low 3.9-4.9 g/dL LAB 55200-7([facility]) Calcium SerPl-mCnc 7.8 Low 8.5-10.2 mg/dL LAB 1975-2([facility]) Bilirub SerPl-mCnc 0.3 0.2-1.3 mg/dL LAB 6768-6([facility]) ALP SerPl-cCnc 126 High 38-113 U/L LAB 1920-8([facility]) AST SerPl-cCnc 31 14-40 U/L LAB 1742-6([facility]) ALT SerPl-cCnc 13 10-54 U/L LAB 2345-7([facility]) Glucose SerPl-mCnc 88 74-99 mg/dL Result Comment: The [place] Diabetes Association (ADA) provides guidance for cutoff [...] Standards of Medical Care in Diabetes 2016, [place] Diabetes Association. Diabetes Care. 2016.39(Suppl 1). LAB 3094-0(LOINC) BUN SerPl-mCnc 33 High 9-24 mg/dL LAB 2160-0(LOINC) Creat SerPl-mCnc 8.05 High 0.73-1.22 mg/dL LAB 2951-2(LOINC) Sodium SerPl-sCnc 138 136-144 mmol/L LAB 2823-3(LOINC) Potassium SerPl-sCnc 4.7 3.7-5.1 mmol/L LAB 2075-0(LOINC) Chloride SerPl-sCnc 96 Low 98-107 mmol/L LAB 202-9(LOINC) CO2 SerPl-sCnc 26 22-30 mmol/L LAB 25825-1(LOINC) Anion Gap SerPl-sCnc 16 High 8-15 mmol/L LAB 63790-3(LOINC) eGFRcr SerPlBld CKD-EPI 2020 8 Low >=60 [...] accurately reflect actual GFR. Performed By: #### 89993-1 # ### [facility] CLIA [id number] [address] [place] [address] [place] PT PNL PPP Collected: 06/03/2025 7:25 AM Status: F Source: [facility] Order Comment: Specimen Type : BLOOD SPECIMEN Ordering Facility: [facility] Address: [address] [place] [address] TYPE CODE TESTS RESULT OUT OF RANGE REFERENCE UNITS LAB 5902-2(LOINC) Prothrombin time 25.8 High 9.7-13.0 sec LAB 6301-6(LOINC) INR PPP 2.5 High 0.9-1.3 Result Comment: Vitamin K An tagonist (VKA) Therapeutic Range: INR 2 to 3 (Target INR of 2.5) Note: For patients treated with VKA drugs, such as warfarin, the [place] College of Chest Physicians 2012 Guideline recommends [...] Chest 2012, 141:7S-47S Kevin RA, et al. [facility] 2017, 70: 252-289 Performed By: #### 64043-7 # ### [facility] CLIA [id number] [address] [place] [address] OF [facility] THERAPY NT Observed: 06/02/2025 1:51 PM Status: COMPLETED Source: [facility] HNO ID: [id number] Author: JEAN-PAUL WHITLOCK OT/L Service: Occupational Therapy Author Type: Occupational Therapist Type: Therapy (PT/OT/Speech/Resp) Filed: 06/02/2025 14:41 Note Text: OCCUPATIONAL THERAPY MISSED VISIT SERVICE DATE: 06/02/2025 SERVICE TIME: 1351 ROOM: [place] [address] Patient not seen due to Declined to Participate secondary to fatigue and pain. Patient educated on benefits of OT. SIGNATURE: JASWINDER Helms PATIENT NAME: Elia Weston DATE: June 02, 2025 TIME: 2:41 PM US ARM VEIN DVT UNL VAS LAB Observed: 1:21 PM Status: F Source: [facility] Non-Invasive Vascular [facility] Portable Upper Extremity Venous Duplex Unilateral [...] and subcuntaneous air. Technologist: Ellie Lam RVT, [facility] Ordering physician: RIVAS SOLITARIO Interpreting physician: Sumeet Bundy MD, LEONIDAS Final CC [facility] [facility] Image : [id number] See Link below for Image XR CHEST 1V FRONTAL PORT Observed: 06/02 12:35 PM Status: F Source: [facility] * * *Final Report* * * DATE [...] cardiomediastinal silhouette. Other: . IMPRESSION: See result. Market Relationship Manager: AZAM Transcribe Date/Time: Jun 02 2025 12:48P Dictated by : AVINASH TODD MD This examination was interpreted and the report reviewed and electronically signed by: AVINASH TODD MD on Jun 02 2025 12:49PM EST [id number] THERAPY NT Observed: 06/02/2025 12:34 PM Status: COMPLETED Source: [facility] HNO ID: [id number] Author: JAQUELINE OLMSTEAD PT Service: Physical Therapy Author Type: Physical Therapist Type: Therapy (PT/OT/Speech/Resp) Filed: 06/02/2025 12:34 Note Text: Physical Therapy Treatment Summary SERVICE DATE: 06/02/2025 SERVICE TIME: 1151 to 1221 ROOM: [place] [address] PT 6 Clicks Score: 21 DISCHARGE RECOMMENDATIONS [...] Unsteadiness on feet TREATMENT INTERVENTIONS Gait Training (88133), Therapeutic Exercise (16387) Timed Code Treatment (minutes): 30 Skilled Treatment [...] Observed: 06/02/2025 12:31 PM Status: COMPLETED Source: [facility]NO ID: [id number] Author: KIMBERLY LYNN APRN.INDUSTRIAL TECHNOLOGIST Service: Wound Care Team Author Type: Nurse Practitioner Type: Consults Filed: 06/02/2025 13:14 Note Text: WOUND CARE SERVICE HORSE BREEDER CONSULT NOTE SERVICE DATE: 06/02/2025 SERVICE TIME: [...] since 05/31. He is known to the [facility] and was last seen during a prior [...] present, no odor, skye skin is scarred moist and intact. See [...] on Coumadin and Amiodarone BMI 40.0-44.9, adult ([facility]) ESRD (end stage renal disease) on dialysis ([facility]) 2005 ESRD from HTN Dialysis M,W,F [facility] [phone] Essential hypertension, benign 1998 EKG 09/30 NL. 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 01/17/2013 [facility] CARDIAC RADIOFREQUENCY ABLATION 08/21/2021 s/p [...] 06/02/2025 9:59 AM Wound Image Site Assessment Red;Lorton;Sloughing;Yellow Skye-Wound Assessment Scarred;Dry;Intact Shape irregular Wound Length [...] 06/02/2025 10:15 AM Wound Image Site Assessment Eschar;Brown;Sloughing;Yellow;Red;Lorton Skye-Wound Assessment Scarred;Hyperpigmented;Dry;Intact Shape irregular Wound Length [...] 06/02/2025 9:22 AM Wound Image Site Assessment Red;Lorton;Sloughing;Echeverria Skye-Wound Assessment Scarred;Moist ;Intact Shape irregular Wound [...] 06/02/2025 9:09 AM Wound Image Site Assessment Red;Lorton;Echeverria;Dry Skye-Wound Assessment Hyperpigmented;Dry;Intact Shape Irregular Wound Length [...] cleanser and then pat dry. Apply Vashe ([place] # [id number]) saturated gauze and allow to sit on the wound for 5-10 minutes, gently remove and dry area. Apply 3M Skin Barrier or ConvaTec skin barrier wand to the skye-wound skin and allow to dry. Apply moistened Hydrofera Blue ([place] # [id number]) cut to fit wound and cover with [...] cleanser and then pat dry. Apply Vashe ([place] # [id number]) saturated gauze and allow to sit on the wound for 5-10 minutes, gently remove and dry area. Apply 3M Skin Barrier or ConvaTec skin barrier wand to the skye-wound skin and allow to dry. Apply a thin layer of Hydrogel to the wound, then gently fill the wound with Vashe ([place] # [id number]) moistened Kerlix and cover with a foam [...] off-load heels, while in bed. (oracle number [id number]) - Obtain [employer] Comfort Gove Sheet (oracle number [id number]) and Turning wedge (oracle number 2605931) to off-load patient's coccyx/ischium every 2 hours. - Obtain Seating Cushion ([place] # [id number]) and use when patient is up to [...] and Moisture Pressure Injury Prevention: Seat cushion, Dental Coordinator on Consult, Head cushion/ positioner, Heel offloading, [...] Review under the Scanned Docs tab in Mediasmart. The purpose of the photo(s) is to [...] which included preparing to see the patient, [id number] patient care, completing clinical documentation, obtaining and/or [...] Observed: 06/02/2025 10:45 AM Status: COMPLETED Source: [facility] HN ID: [id number] Author: NAYELY GARCIA RPh Service: Pharmacy Author [...] Warfarin 5mg Outpatient follow-up plan: Follow-up in [facility]: [facility] pt has [facility] PCP in [place] also to manage Indication for oral anticoagulation: mechanical valve replacement - mitral as well as AF Target INR range: 2.5 - 3.5 (Target 3.0) Warfarin education status: Pharmacy confirmed patient is not new start to anticoagulation therapy listed above. If additional education is needed, please consult pharmacy for inpatient anticoagulant education. Nayely Garcia RPh PROGRESS Observed: 06/02/2025 7:38 AM Status: COMPLETED Source: [facility] HNO ID: [id number] Author: BEULAH RAMEY MD Service: General Internal [...] 7.52 (H) 7.35 - 7.45 Final Specific [place], [place] Date Value Ref Range Status 04/03/2007 [...] NAME: Elia Weston DATE: June 02, 2025 [facility] STAFF PHYSICIAN NOTE OF PERSONAL INVOLVEMENT IN [...] Staff, Dept. Of Hospital Medicine PAGER - [phone] COMP METAB 2000 PNL SERPL Collected: 12:54 AM Status: F Source: [facility] Order Comment: Specimen Type : BLOOD SPECIMEN Ordering Facility: [facility] Address: [address] [place] [address] TYPE CODE TESTS RESULT OUT OF RANGE REFERENCE UNITS LAB 2885-2(LOINC) Prot SerPl-mCnc 7.0 6.3-8.0 g/dL LAB 1751-7(LOINC) Albumin SerPl-mCnc 3.6 Low 3.9-4.9 g/dL LAB 83851-4(LOINC) Calcium SerPl-mCnc 7.7 Low 8.5-10.2 mg/dL LAB 1975-2(LOINC) Bilirub SerPl-mCnc 0.3 0.2-1.3 mg/dL LAB 6768-6(LOINC) ALP SerPl-cCnc 132 High 38-113 U/L LAB 1920-8(LOINC) AST SerPl-cCnc 21 14-40 U/L LAB 1742-6(LOINC) ALT SerPl-cCnc 10 10-54 U/L LAB 2345-7(LOINC) Glucose SerPl-mCnc 88 74-99 mg/dL Result Comment: The [place] Diabetes Association (ADA) provides guidance for cutoff [...] Standards of Medical Care in Diabetes 2016, [place] Diabetes Association. Diabetes Care. 2016.39(Suppl 1). LAB 3094-0(LOINC) BUN SerPl-mCnc 23 9-24 mg/dL LAB 2160-0(LOINC) Creat SerPl-mCnc 5.85 High 0.73-1.22 mg/dL LAB 2951-2(LOINC) Sodium SerPl-sCnc 138 136-144 mmol/L LAB 2823-3(LOINC) Potassium SerPl-sCnc 4.8 3.7-5.1 mmol/L LAB 2075-0(LOINC) Chloride SerPl-sCnc 96 Low 98-107 mmol/L LAB 2027-9(LOINC) CO2 SerPl-sCnc 27 22-30 mmol/L LAB 26167-0(LOINC) Anion Gap SerPl-sCnc 15 8-15 mmol/L LAB 42784-7(LOINC) eGFRcr SerPlBld CKD-EPI 2020 11 Low >=60 [...] accurately reflect actual GFR. Performed By: #### 73691-5 # ### [facility] CLIA [id number] [address] [place] [address] [place] PT PNL PPP Collected: 5 12:54 AM Status: F Source: [facility] Order Comment: Specimen Type : BLOOD SPECIMEN Ordering Facility: [facility] Address: [address] [place] [address] TYPE CODE TESTS RESULT OUT OF RANGE REFERENCE UNITS LAB 5902-2(LOINC) Prothrombin time 20.9 High 9.7-13.0 sec LAB 6301-6(LOINC) INR PPP 2.0 High 0.9-1.3 Result Comment: Vitamin K An tagonist (VKA) Therapeutic Range: INR 2 to 3 (Target INR of 2.5) Note: For patients treated with VKA drugs, such as warfarin, the [employer] of [employer] Physicians 2012 Guideline recommends [...] Chest 2012, 141:7S-47S Kevin RA, et al. [facility] 2017, 70: 252-289 Performed By: #### 02983-3 # ### [facility] CLIA [id number] [address] [place] [address] STATES OF [facility] CBC PNL BLD AUTO Collected: 5 12:53 AM Status: F Source: [facility] Order Comment: Specimen Type : BLOOD SPECIMEN Ordering Facility: [facility] Address: [address] [place] [address] TYPE CODE TESTS RESULT OUT OF RANGE [...] MCHC RBC Auto-mCnc 31.6 30.5-36.0 g/dL LAB 78191-1(LOINC) RDW RBC-Rto 18.5 High 11.5-15.0 % LAB 777-3(LOINC) Platelet # Bld Auto 186 150-400 k/uL LAB 78534-7(LOINC) PMV Bld Auto 11.5 9.0-12.7 fL LAB 771-6(LOINC) nRBC # Bld Auto <0.01 <0.01 k/uL Performed By: #### 66841-1 # ### [facility] CLIA [id number] [address] [place] [address] [place] PTT, ANTICOAGULANT THERAPY Collected: 0 06/02/2025 12:50 AM Status: F Source: [facility] Order Comment: Specimen Type : BLOOD SPECIMEN Ordering Facility: [facility] Address: [address] [place] [address] TYPE CODE TESTS RESULT OUT OF RANGE REFERENCE UNITS LAB 31301-5(LOINC) aPTT PPP 41.9 High 23.0-32.4 sec Performed By: #### PTTAC ### # [facility] CLIA [id number] [address] [place] [address] NURSING PROG Observed: 06/01/2025 6:13 PM Status: COMPLETED Source: [facility] HNO ID: [id number] Author: GABRIELE PEARL RN Service: ? Author Type: Registered Nurse Type: Nursing Progress Note Filed: 06/01/2025 18:14 Note Text: Other: Pt refuses care. Pt has been educated and will continue to monitor PTT, ANTICOAGULANT THERAPY Collected: 0 06/01/2025 4:05 PM Status: F Source: [facility] Order Comment: Specimen Type : BLOOD SPECIMEN Ordering Facility: [facility] Address: [address] [place] [address] TYPE CODE TESTS RESULT OUT OF RANGE REFERENCE UNITS LAB 11154-4(LOINC) aPTT PPP 73.5 High 23.0-32.4 sec Performed By: #### PTTAC ### # [facility] CLIA [id number] [address] [place] [address] THERAPY NT Observed: 06/01/2025 3:38 PM Status: COMPLETED Source: [facility] HNO ID: [id number] Author: MARÍA ESPARZA, PT, DPT Service: Physical Therapy Author Type: Physical Therapist Type: Therapy (PT/OT/Speech/Resp) Filed: 06/01/2025 15:39 Note Text: Physical Therapy Evaluation Summary SERVICE DATE: 06/01/2025 SERVICE TIME: 1456 to 1523 ROOM: [place] [address] PT 6 Clicks Score: 22 DISCHARGE RECOMMENDATIONS [...] Reduced mobility-other TREATMENT INTERVENTIONS Evaluation, Therapeutic Activity (94127) Timed Code Treatment (minutes): 10 Skilled Treatment [...] LT Observed: 1:02 PM Status: F Source: [facility] * * *Final Report* * * DATE [...] joint effusion. IMPRESSION: No acute osseous findings. Market Relationship Manager: PSCB Transcribe Date/Time: Jun 01 2025 1:10P Dictated by : LING CONWAY MD This examination was interpreted and the report reviewed and electronically signed by: LING CONWAY MD on Jun 01 2025 1:11PM EST [id number] CASE MGT JANNIE TORO Observed: 06/01/2025 12:10 PM Status: COMPLETED Source: [facility] HNO ID: [id number] Author: KALANI DIEGO RN Service: Care Management Author Type: Registered Nurse Type: Care Mgt Initial Assessment Filed: 06/01/2025 12:14 Note Text: CARE MANAGEMENT: ASSESSMENT AND DISCHARGE PLAN SERVICE DATE: June 01, 2025 SERVICE TIME: 12:10 PM PCP: No primary care provider on file. Primary Contact: Extended Emergency Contact Information Primary Emergency Contact: Irma Weston Address: [address] [place], [place] [id number] [place] [address] [place] Mobile Relation: Spouse Secondary Emergency Contact: Pablo Weston Mobile Relation: Mother Father: Pastor Nitesh Mcgarry Admission Status: Inpatient Insurance Provider: [employer] HMO Discharge Planning requested by: Per Department Practice Potential Transition Plans Home Advance Directives Current Advance Directive: None Security Professional Attempted to Assist with AD Completion: No [...] Be able to go home, General wellness [place] Explained: [place] Given: No Reason Not Given: [...] Be Determined, OT/PT Evaluation Post-Acute Discharge Plan: Information Technology ManagerConstruction Craft Laborer Anticipated Medical Plan of Care: TBD Medical [...] free lunch while waiting, if applicable. An hvac maintenance technician is also available to pts in the dc lounge. The lounge is not suitable for patients who require medication, isolation or treatment between discharge and pickup as well as those individuals with disruptive behavior or bladder/bowel incontinence. Dc Lounge Hours: M-F [phone]; for a weekend dc or dc after-hours Red Coat Attendants are available to assist. If your pt is eligible to utilize the dc lounge, please make pt aware that waiting in the dc lounge is the new standard of care at [facility] and place the order prior to dc. SIGNATURE: Kalani Diego RN PATIENT NAME: Elia Weston DATE: June 01, 2025 TIME: 12:10 PM CONSULT PROG Observed: 06/01/2025 11:34 AM Status: COMPLETED Source: [facility] ID: [id number] Author: CAMILO NORTON PA-C Service: Nephrology Author Type: Physician Mannequin Mold Maker Type: Consult Progress Note Filed: 06/01/2025 11:36 Note Text: Department of Kidney Medicine Medical Specialties [place] [facility] Q6 NEPHROLOGY CONSULT SERVICE PROGRESS NOTE [...] Dialysis / Apheresis Double Lumen 04/29/25 1005 [facility] Tunneled Right Internal Jugular 33 days Peripheral 05/31/25 0223 [facility] Short Left Forearm 20 Gauge 1 day [...] 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 Kidney care will be provided by the primary member of technical staff at their dialysis unit upon hospital discharge. Camilo Norton PA-C Department of Kidney Medicine [facility] June 01, 2025 11:34 AM PAGER # [phone] Disclosures: Parts of the current progress note may have been copied from a previous note. FOR AFTER HOUR CONCERNS BETWEEN 5PM - 7AM CONTACT ON-CALL NEPHROLOGY FELLOW [phone] THERAPY NT Observed: 06/01/2025 9:48 AM Status: COMPLETED Source: [facility] HNO ID: [id number] Author: MARÍA ESPARZA, PT, DPT Service: Physical Therapy Author Type: Physical Therapist Type: Therapy (PT/OT/Speech/Resp) Filed: 06/01/2025 09:48 Note Text: PHYSICAL THERAPY MISSED VISIT SERVICE DATE: 06/01/2025 SERVICE TIME: 947 ROOM: [place] [address] (Formerly [facility], Later [facility]) Patient not seen due to Test / Procedure. At dialysis. SIGNATURE: María Esparza PT, DPT PATIENT NAME: Elia Weston DATE: June 01, 2025 TIME: 9:48 AM THERAPY NT Observed: 06/01/2025 9:32 AM Status: COMPLETED Source: [facility] HNO ID: [id number] Author: ?, ?, ? Service: Occupational Therapy Author Type: Occupational Therapist Type: Therapy (PT/OT/Speech/Resp) Filed: 06/01/2025 09:32 Note Text: OCCUPATIONAL THERAPY MISSED VISIT SERVICE DATE: 06/01/2025 SERVICE TIME: 930 ROOM: [place] [address] (6-1 Hemodialysis) Patient not seen due to Test / Procedure. SIGNATURE: Heide Diaz OT/L PATIENT NAME: Elia Weston DATE: June 01, 2025 TIME: 9:32 AM CBC W AUTO DIFF BLD Collected: 06/01/2025 7:[address] atus: F Source: [facility] Order Comment: Specimen Type : BLOOD SPECIMEN Ordering Facility: [facility] Address: [address] [place] [address] TYPE CODE TESTS RESULT OUT OF RANGE REFERENCE UNITS LAB 6690-2([facility]) WBC # Bld Auto 4.67 3.70-11.00 k/uL LAB 789-8([facility]) RBC # Bld Auto 2.47 Low 4.20-6.00 m/ uL LAB 718-7([facility]) Hgb Bld-mCnc 7.2 Low 13.0-17.0 g/dL LAB 4544-3([facility]) Hct VFr Bld Auto 23.3 Low 39.0-51.0 % LAB 787-2(INC) MCV RBC Auto 94.3 80.0-100.0 fL LAB 785-6([facility]) MCH RBC Qn Auto 29.1 26.0-34.0 p g LAB 786-4(INC) MCHC RBC Auto-mCnc 30.9 30.5-36.0 g/dL LAB 26202-9([facility]) RDW RBC-Rto 18.1 High 11.5-15.0 % LAB 777-3(INC) Platelet # Bld Auto 172 150-400 k/uL LAB 13211-3(INC) PMV Bld Auto 11.3 9.0-12.7 fL LAB [...] Eosinophil/leuk NFr Bld Auto 5.6 % LAB 711-2([facility]) Eosinophil # Bld Auto 0.26 <0.46 k/uL LAB 706-2([facility]) Basophils/leuk NFr Bld Auto 1.1 % LAB 704-7([facility]) Basophils # Bld Auto 0.05 <0.11 k/uL LAB 85628-3([facility]) Imm Granulocytes/fely k NFr Bld Auto 0.4 % LAB 09189-9([facility]) Imm Granulocytes # Bld Auto <0.03 <0.10 k/uL LAB 62504-9([facility]) nRBC/100 WBC Bld-Rto 0.0 /100 WBC LAB 771-6([facility]) nRBC # Bld Auto <0.01 <0.01 k/u L LAB 62340-3([facility]) Differential method Bld Auto Performed By: #### 21277-5 # ### [facility] CLIA [id number] [address] [place] [address] [place] COMP METAB 2000 PNL SERPL Collected: 7:15 AM Status: F Source: [facility] Order Comment: Specimen Type : BLOOD SPECIMEN Ordering Facility: [facility] Address: [address] [place] [address] TYPE CODE TESTS RESULT OUT OF RANGE REFERENCE UNITS LAB 2885-2([facility]) Prot SerPl-mCnc 6.8 6.3-8.0 g/dL LAB 1751-7([facility]) Albumin SerPl-mCnc 3.4 Low 3.9-4.9 g/dL LAB 02741-4([facility]) Calcium SerPl-mCnc 7.0 Low 8.5-10.2 mg/dL LAB 1975-2([facility]) Bilirub SerPl-mCnc 0.3 0.2-1.3 mg/dL LAB 6768-6([facility]) ALP SerPl-cCnc 124 High 38-113 U/L LAB 1920-8(LOINC) AST SerPl-cCnc 20 14-40 U/L LAB 1742-6([facility]) ALT SerPl-cCnc 9 Low 10-54 U/L LAB 2345-7(LOINC) Glucose SerPl-mCnc 78 74-99 mg/dL Result Comment: The [place] Diabetes Association (ADA) provides guidance for cutoff [...] Standards of Medical Care in Diabetes 2016, [place] Diabetes Association. Diabetes Care. 2016.39(Suppl 1). LAB 3094-0(LOINC) BUN SerPl-mCnc 52 High 9-24 mg/dL LAB 2160-0(LOINC) Creat SerPl-mCnc 10.43 High 0.73-1.22 mg/dL LAB 2951-2(LOINC) Sodium SerPl-sCnc 138 136-144 mmol/L LAB 2823-3(LOINC) Potassium SerPl-sCnc 5.0 3.7-5.1 mmol/L LAB 2075-0(LOINC) Chloride SerPl-sCnc 96 Low 98-107 mmol/L LAB 2028-9(LOINC) CO2 SerPl-sCnc 21 Low 22-30 mmol/L LAB 35551-3(LOINC) Anion Gap SerPl-sCnc 21 High 8-15 mmol/L LAB 87794-4(LOINC) eGFRcr SerPlBld CKD-EPI 2020 6 Low >=60 [...] accurately reflect actual GFR. Performed By: #### 03666-0 # ### [facility] CLIA [id number] [address] [place] [address] [place] PT PNL PPP Collected: 06/01/2025 7:15 AM Status: F Source: [facility] Order Comment: Specimen Type : BLOOD SPECIMEN Ordering Facility: [facility] Address: [address] [place] [address] TYPE CODE TESTS RESULT OUT OF RANGE REFERENCE UNITS LAB 5902-2(LOINC) Prothrombin time 18.8 High 9.7-13.0 sec LAB 6301-6(LOINC) INR PPP 1.8 High 0.9-1.3 Result Comment: Vitamin K An tagonist (VKA) Therapeutic Range: INR 2 to 3 (Target INR of 2.5) Note: For patients treated with VKA drugs, such as warfarin, the [place] College of Chest Physicians 2012 Guideline recommends [...] Chest 2012, 141:7S-47S Kevin RA, et al. [facility] 2017, 70: 252-289 Performed By: #### 78939-7, PTTAC #### [facility] CLIA [id number] [address] [place] [address] [place] PTT, ANTICOAGULANT THERAPY Collected: 0 06/01/2025 7:15 AM Status: F Source: [facility] Order Comment: Specimen Type : BLOOD SPECIMEN Ordering Facility: [facility] Address: [address] [place] [address] TYPE CODE TESTS RESULT OUT OF RANGE REFERENCE UNITS LAB 00474-6(LOINC) aPTT PPP 67.0 High 23.0-32.4 sec Performed By: #### 83774-2, PTTAC #### [facility] CLIA [id number] [address] [place] [address] STATES OF [facility] PROGRESS Observed: 06/01/2025 6:38 AM Status: COMPLETED Source: [facility] HNO ID: [id number] Author: RIVAS SOLITARIO MD Service: General Internal [...] 7.52 (H) 7.35 - 7.45 Final Specific [place], Ur Date Value Ref Range Status 04/03/2007 [...] residents and medical students. Rivas Solitario MD [email or web address] [phone] NURSING PROG Observed: 06/01/2025 1:30 AM Status: COMPLETED Source: [facility] ID: [id number] Author: EDMAR CUNNINGHAM RN Service: Nursing Author Type: Registered Nurse Type: Nursing Progress Note Filed: 06/01/2025 07:27 Note Text: Summary: Declining patient care/ADL's Other: Patient arrived to H from [facility]. Pt declining full skin assessment, dressings [...] 0 06/01/2025 12:03 AM Status: F Source: [facility] Order Comment: Specimen Type : BLOOD SPECIMEN Ordering Facility: [facility] Address: [address] [place] [address] TYPE CODE TESTS RESULT OUT OF RANGE REFERENCE UNITS LAB 42778-1(LOINC) aPTT PPP 48.5 High 23.0-32.4 sec Performed By: #### PTTAC ### # [facility] CLIA [id number] [address] [place] [address] OF [facility] PTT, ANTICOAGULANT THERAPY Collected: 0 05/31/2025 5:26 PM Status: F Source: [facility] Order Comment: Specimen Type : BLOOD SPECIMEN Ordering Facility: [facility] Address: [address] [place] [address] TYPE CODE TESTS RESULT OUT OF RANGE REFERENCE UNITS LAB 54680-7(LOINC) aPTT PPP 48.6 High 23.0-32.4 sec Performed By: #### PTTAC ### # [facility] CLIA [id number] [address] [place] [address] NURSING PROG Observed: 05/31/2025 2:37 PM Status: COMPLETED Source: [facility] HNO ID: [id number] Author: ROCIO AUGUSTE, RN Service: Nursing Author Type: Registered Nurse Type: Nursing Progress Note Filed: 05/31/2025 14:41 Note Text: Other: 1000: Patient admitted to [place] [address]. Admission questions reviewed with patient. Patient declining [...] Observed: 05/31/2025 1:20 PM Status: COMPLETED Source: [facility] HNO ID: [id number] Author: CAMILO NORTON PA-C Service: Nephrology Author Type: Physician Mannequin Mold Maker Type: Consult Progress Note Filed: 05/31/2025 13:23 Note Text: Department of Kidney Medicine Medical Specialties [place] [facility] Q6 NEPHROLOGY CONSULT SERVICE PROGRESS NOTE INTERVAL HISTORY: - discharged with last HD 05/27, readmit for groin wound concern, possible hematoma from previous pacemaker placement incision site. - labs stable with plan for HD per [facility], next inpatient session Friday heparin, Last [...] Dialysis / Apheresis Double Lumen 04/29/25 1005 [facility] Tunneled Right Internal Jugular 32 days Peripheral 05/31/25 0223 [facility] Short Left Forearm 20 Gauge <1 day [...] 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 Kidney care will be provided by the primary member of technical staff at their dialysis unit upon hospital discharge. Camilo Norton PA-C Department of Kidney Medicine [facility] May 31, 2025 1:20 PM PAGER # [phone] Disclosures: Parts of the current progress note may have been copied from a previous note. FOR AFTER HOUR CONCERNS BETWEEN 5PM - 7AM CONTACT ON-CALL NEPHROLOGY FELLOW [phone] [facility] Observed: 5 1:04 PM Status: F Source: [facility] Non-Invasive Vascular [facility] of [...] Interpreting physician: Gilbert Clay MD Final CC [employer] : [id number] See Link below for Image HISTORY PHYSICAL Observed: 05/31/2025 9:41 AM Status: COMPLETED Source: [facility] HNO ID: [id number] Author: RIVAS SOLITARIO MD Service: General Internal Medicine Author Type: Physician Type: H&P Filed: 05/31/2025 20:42 Note Text: DEPARTMENT OF HOSPITAL MEDICINE HISTORY AND PHYSICAL EXAM SERVICE DATE: 05/31/2025 SERVICE TIME: 9:41 AM Primary Care Physician: No primary care provider on file. NIGHT AND WEEKEND COVERAGE: [facility] COVERAGE: Days: [phone], please page [phone] for patient issues. Nights: [phone], please page Team Jeffrey B; overnight/admitting pager [phone] Subjective CHIEF COMPLAINT: Left groin mass HPI: [...] on Coumadin and Amiodarone BMI 40.0-44.9, adult ([facility]) ESRD (end stage renal disease) on dialysis ([facility]) 2005 ESRD from HTN Dialysis M,W,F [facility] [phone] Essential hypertension, benign 1998 EKG 09/30 NL. Hearing loss of both ears History of mitral valve stenosis Hx of bacterial endocarditis Hyperparathyroidism due to end stage renal disease on dialysis ([facility]) Kidney disease 2005 ESRD due to HTN; on IHD since 2005 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 and scoliosis h/o this 3 y. Dx by xray. Mechanical complication of arteriovenous fistula surgically created ([facility]) Mechanical complication of dialysis catheter ([facility]) Mitral valve disease Morbid obesity ([facility]) MS (mitral stenosis) 10/08/2018 Transesophageal US YEIMY on CPAP Paroxysmal atrial fibrillation ([facility]) PE (pulmonary thromboembolism) ([facility]) Pelvic mass Pseudoaneurysm of AV hemodialysis fistula (HCC) Wound of right side of back from friction/rubbing of jacket, goes to wound care center in [place] PAST SURGICAL HISTORY Procedure Laterality Date ARTERIOVENOUS FISTULA Left 08/29/2010 CAPSULE ENDOSCOPY 07/01/2023 CARDIOVERSION-ELECTIVE N/A 12/03/2018 200 joules synchronized - successful COLONOSCOPY 07/01/2023 EGD 06/27/2023 HERNIA REPAIR HX PAST SURGICAL HISTORY OF 08/29/2010 dialysis fistula left arm PAST SURGICAL HISTORY OF Right 03/2019 Right leg femoral vein to superficial femoral artery loop graft mid thigh REPAIR CLEFT LIP RMVL LEANN CVC W/O SUBQ PORT/BANQUET STEWARDESS 01/17/2013 SHX CARDIAC RADIOFREQUENCY ABLATION 08/21/2021 s/p [...] Dialysis / Apheresis Double Lumen 04/29/25 1005 [facility] Tunneled Right Internal Jugular 31 days Peripheral 05/31/25 0223 [facility] Short Left Forearm 20 Gauge <1 day [...] Lymph 1.00 - 4.00 k/uL 0.94 Abs [place] <0.87 k/uL 1.15 Abs Eosin <0.46 k/uL [...] residents and medical students. Rivas Solitario MD [facility] [phone] [1] Social History Tobacco Use Smoking status: Never Smokeless tobacco: Never Vaping Use Vaping status: Never Used Substance Use Topics Alcohol use: No Drug use: No NURSING PROG Observed: 05/31/2025 9:35 AM Status: COMPLETED Source: [facility] HNO ID: [id number] Author: ROCIO AUGUSTE RN Service: Nursing Author [...] Observed: 05/31/2025 8:41 AM Status: COMPLETED Source: [facility] HNO ID: [id number] Author: RASHID MARTIN RN Service: ? Author Type: Registered Nurse Type: ED Notes Filed: 05/31/2025 08:42 Note Text: MD contacted regarding pt requesting pain medications. ED NOTE Observed: 05/31/2025 8:41 AM Status: COMPLETED Source: [facility] HNO ID: [id number] Author: RASHID MARTIN RN Service: ? Author Type: Registered Nurse Type: ED Notes Filed: 05/31/2025 08:41 Note Text: E20 contacted x2; reports bed is not clean ED NOTE Observed: 05/31/2025 8:28 AM Status: COMPLETED Source: [facility] HNO ID: [id number] Author: RASHID MARTIN RN Service: ? Author Type: Registered Nurse Type: ED Notes Filed: 05/31/2025 08:28 Note Text: Pt's updated on pt's plan of care. ED NOTE Observed: 05/31/2025 8:03 AM Status: COMPLETED Source: [facility] HNO ID: [id number] Author: RASHID MARTIN RN Service: ? Author Type: Registered Nurse Type: ED Notes Filed: 05/31/2025 08:04 Note Text: Attempt to contact E20 IP credit charge authorizer x1. ED NOTE Observed: 05/31/2025 7:09 AM Status: COMPLETED Source: [facility] HNO ID: [id number] Author: HIMANSHU GUSTAFSON MD Service: Emergency Medicine [...] (ANC) 4.26 Lymph% 14.2 Abs Lymph 0.94(!) [place]% 17.3 Abs [place] 1.15(!) Eosin% 3.5 Abs Eosin 0.23 Baso% [...] Observed: 05/31/2025 6:59 AM Status: COMPLETED Source: [facility] HNO ID: [id number] Author: DYLAN CHIN MD Service: Emergency Medicine [...] Observed: 05/31/2025 4:20 AM Status: COMPLETED Source: [facility] HNO ID: [id number] Author: MARINO PIMENTEL RN Service: ? Author Type: Registered Nurse Type: ED Notes Filed: 05/31/2025 04:21 Note Text: This RN updated patient spouse regarding patient plan of care. No further questions at this time. CTA LOWER EXTREM W IVCON Observed: 05/31 3:38 AM Status: F Source: [facility] * * *Final Report* * * DATE OF EXAM: May 31 2025 3:38AM [facility] 8760 - CTA LOWER EXTREM W [...] No dilation or wall thickening within the [id number]. Lymph nodes: Borderline enlarged pelvic and inguinal [...] a femoral pseudoaneurysm. Additional findings, as detailed. Market Relationship Manager: AZAM Transcribe Date/Time: May 31 2025 3:38A Dictated by : SUSAN GRIFFITH MD This examination was interpreted and the report reviewed and electronically signed by: HAIR SHARPE MD on May 31 2025 6:15AM EST [id number] LACTATE BLD-SCNC Collected: 2:22 AM Status: F Source: [facility] Order Comment: Specimen Type : BLOOD SPECIMEN Ordering Facility: [facility] Address: [address] [place] [address] TYPE CODE TESTS RESULT OUT OF RANGE REFERENCE UNITS LAB 40466-7(LOINC) Lactate Bld-sCnc 1.8 0.5-2.2 mmol/L Performed By: #### 69697-0 # ### [facility] CLIA [id number] [address] [place] [address] [place] COMP METAB 2000 PNL SERPL Collected: 2:22 AM Status: F Source: [facility] Order Comment: Specimen Type : BLOOD SPECIMEN Ordering Facility: [facility] Address: [address] [place] [address] TYPE CODE TESTS RESULT OUT OF RANGE REFERENCE UNITS LAB 2885-2(LOINC) Prot SerPl-mCnc 7.6 6.3-8.0 g/dL LAB 1751-7(LOINC) Albumin SerPl-mCnc 4.0 3.9-4.9 g/dL LAB 16711-6(LOINC) Calcium SerPl-mCnc 8.2 Low 8.5-10.2 mg/dL LAB 1975-2(LOINC) Bilirub SerPl-mCnc 0.4 0.2-1.3 mg/dL LAB 6768-6(LOINC) ALP SerPl-cCnc 147 High 38-113 U/L LAB 1920-8(LOINC) AST SerPl-cCnc 29 14-40 U/L LAB 1742-6(LOINC) ALT SerPl-cCnc 11 10-54 U/L LAB 2345-7(INC) Glucose SerPl-mCnc 89 74-99 mg/dL Result Comment: The [place] Diabetes Association (ADA) provides guidance for cutoff [...] Standards of Medical Care in Diabetes 2016, [place] Diabetes Association. Diabetes Care. 2016.39(Suppl 1). LAB 3094-0(LOINC) BUN SerPl-mCnc 45 High 9-24 mg/dL LAB 2160-0(LOINC) Creat SerPl-mCnc 8.92 High 0.73-1.22 mg/dL LAB 2951-2(LOINC) Sodium SerPl-sCnc 142 136-144 mmol/L LAB 2823-3(LOINC) Potassium SerPl-sCnc 4.6 3.7-5.1 mmol/L LAB 2075-0(LOINC) Chloride SerPl-sCnc 101 98-107 mmol/L LAB 8-9(LOINC) CO2 SerPl-sCnc 21 Low 22-30 mmol/L LAB 86471-5(LOINC) Anion Gap SerPl-sCnc 20 High 8-15 mmol/L LAB 75845-4(LOINC) eGFRcr SerPlBld CKD-EPI 2020 7 Low >=60 [...] Performed By: #### 1987-, 1 9123-05, #### [facility] CLIA [id number] [address] [place] [address] [place] CRP SERPL-MCNC Collected: 05/31/2025 2:22 AM Status: F Source: [facility] Comment: Specimen Type : BLOOD SPECIMEN Ordering Facility: [facility] Address: [address] [place] [address] TYPE CODE TESTS RESULT OUT OF RANGE REFERENCE UNITS LAB 1988-01(LOINC) CRP SerPl-mCnc 3.8 High <0.9 mg/dL Performed By: #### 1988-01, 1 9123-05, #### [facility] CLIA [id number] [address] [place] [address] [place] MAGNESIUM SERPL-MCNC Collected: 05/31/2025 2:22 AM S tatus: F Source: [facility] Comment: Specimen Type : BLOOD SPECIMEN Ordering Facility: [facility] Address: [address] [place] [address] TYPE CODE TESTS RESULT OUT OF RANGE REFERENCE UNITS LAB (LOINC) Magnesium SerPl-mCnc 2.5 High 1.7-2.3 mg/dL Performed By: #### 1987-, 1 9123-05, #### [facility] CLIA [id number] [address] [place], [place] [address] [place] PT PNL PPP Collected: 05/31/2025 2:22 AM Status: F Source: [facility] Order Comment: Specimen Type : BLOOD SPECIMEN Ordering Facility: [facility] Address: [address] [place] [address] TYPE CODE TESTS RESULT OUT OF RANGE REFERENCE UNITS LAB 5902-2(LOINC) Prothrombin time 17.9 High 9.7-13.0 sec LAB 6301-6(LOINC) INR PPP 1.7 High 0.9-1.3 Result Comment: Vitamin K An tagonist (VKA) Therapeutic Range: INR 2 to 3 (Target INR of 2.5) Note: For patients treated with VKA drugs, such as warfarin, the [place] College of [employer]icians 2012 Guideline recommends [...] JAC 2017, 70: 252-289 Performed By: #### 25188-4 # ### [facility] CLIA [id number] [address] [place] [address] [place] CBC W AUTO DIFF BLD Collected: 05/31/2025 2:[address] atus: F Source: [facility] Order Comment: Specimen Type : BLOOD SPECIMEN Ordering Facility: [facility] Address: [address] [place] [address] TYPE CODE TESTS RESULT OUT OF RANGE REFERENCE UNITS LAB 6690-2(LOINC) WBC # Bld Auto 6.64 3.70-11.00 k/uL LAB 789-8(LOINC) RBC # Bld Auto 2.80 Low 4.20-6.00 m/ uL LAB 718-7(LOINC) Hgb Bld-mCnc 8.2 Low 13.0-17.0 g/dL LAB 4544-3([facility]) Hct VFr Bld Auto 26.1 Low 39.0-51.0 % LAB 787-2([facility]) MCV RBC Auto 93.2 80.0-100.0 fL LAB 785-6([facility]) MCH RBC Qn Auto 29.3 26.0-34.0 p g LAB 786-4([facility]) MCHC RBC Auto-mCnc 31.4 30.5-36.0 g/dL LAB 35706-3([facility]) RDW RBC-Rto 18.3 High 11.5-15.0 % LAB 777-3([facility]) Platelet # Bld Auto 171 150-400 k/uL LAB 56666-0([facility]) PMV Bld Auto 10.9 9.0-12.7 fL LAB 770-8([facility]) Neutrophils/leuk NFr Bld Auto 64.1 % LAB 751-8([facility]) Neutrophils # Bld Auto 4.26 1.45-7.50 k/uL LAB 736-9([facility]) Lymphocytes/leuk NFr Bld Auto 14.2 % LAB 731-0([facility]) Lymphocytes # Bld Auto 0.94 Low 1.00-4.00 k/uL LAB 5905-5([facility]) Monocytes/leuk NFr Bld Auto 17.3 % LAB 742-7([facility]) Monocytes # Bld Auto 1.15 High <0.87 k/uL LAB 713-8([facility]) Eosinophil/leuk NFr Bld Auto 3.5 % LAB 711-2([facility]) Eosinophil # Bld Auto 0.23 <0.46 k/uL LAB 706-2([facility]) Basophils/leuk NFr Bld Auto 0.6 % LAB 704-7([facility]) Basophils # Bld Auto 0.04 <0.11 k/uL LAB 98876-0([facility]) Imm Granulocytes/fely k NFr Bld Auto 0.3 % LAB 01317-8([facility]) Imm Granulocytes # Bld Auto <0.03 <0.10 k/uL LAB 22964-8([facility]) nRBC/100 WBC Bld-Rto 0.0 /100 WBC LAB 771-6(LOINC) nRBC # Bld Auto <0.01 <0.01 k/u L LAB 94980-5([facility]) Differential method Bld Auto Performed By: #### 27938-2 # ### [facility] CLIA [id number] [address] [place] [address] OF [facility] XR CHEST 1V FRONTAL PORT Observed: 05/31 2:20 AM Status: F Source: [facility] * * *Final Report* * * DATE [...] of the pulmonary vasculature suggesting pulmonary edema. Market Relationship Manager: PSCEun Transcribe Date/Time: May 31 2025 2:25A Dictated by : SUSAN GRIFFITH MD This examination was interpreted and the report reviewed and electronically signed by: HAIR SHARPE MD on May 31 2025 5:11AM EST [id number] PROGRESS Observed: 05/31/2025 2:19 AM Status: COMPLETED Source: [facility] HNO ID: [id number] Author: CLAIRE BOSE RT(R) Service: Radiology Author [...] PATIENT PRESENTS WITH AN IMPLANTABLE OR ATTACHED INSTRUMENT MAKER AND REPAIRER: No RADIOLOGY DEPARTMENT: General X-ray: Exam(s) Completed: Chest X-Ray PERIPHERAL IV DATA: Not applicable SIGNED BY: RT Erinn(R) May 31, 2025 2:20 AM ED PROV NOTE Observed: 05/31/2025 1:49 AM Status: COMPLETED Source: [facility] ID: [id number] Author: MARCELO GRIFFITH MD Service: Emergency Medicine [...] (HCC) 2005 ESRD from HTN Dialysis M,W,F [facility] [phone] Essential hypertension, benign 1998 EKG 09/30 NL. Hearing loss of both ears History of mitral valve stenosis Hx of bacterial endocarditis Hyperparathyroidism due to end stage renal disease on dialysis (HCC) Kidney disease 2005 ESRD due to HTN; on IHD since 2005 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 and scoliosis h/o this 3 y. Dx by xray. Mechanical complication of arteriovenous fistula surgically created ([facility]) Mechanical complication of dialysis catheter ([facility]) Mitral valve disease Morbid obesity (HCC) MS (mitral stenosis) 10/08/2018 Transesophageal US YEIMY on CPAP Paroxysmal atrial fibrillation ([facility]) PE (pulmonary thromboembolism) ([facility]) Pelvic mass Pseudoaneurysm of AV hemodialysis fistula ([facility]) Wound of right side of back from friction/rubbing of jacket, goes to wound care center in [place] PAST SURGICAL HISTORY Procedure Laterality Date ARTERIOVENOUS FISTULA Left 08/29/2010 CAPSULE ENDOSCOPY 07/01/2023 CARDIOVERSION-ELECTIVE N/A 12/03/2018 200 joules synchronized - successful COLONOSCOPY 07/01/2023 EGD 06/27/2023 HERNIA REPAIR HX PAST SURGICAL HISTORY OF 08/29/2010 dialysis fistula left arm PAST SURGICAL HISTORY OF Right 03/2019 Right leg femoral vein to superficial femoral artery loop graft mid thigh REPAIR CLEFT LIP RMVL LEANN CVC W/O SUBQ PORT/BANQUET STEWARDESS 01/17/2013 SHX CARDIAC RADIOFREQUENCY ABLATION 08/21/2021 s/p [...] (ANC) 4.26 Lymph% 14.2 Abs Lymph 0.94(!) Fent[place]% 17.3 Abs [place] 1.15(!) Eosin% 3.5 Abs Eosin 0.23 Baso% [...] Observed: 05/27/2025 6:56 PM Status: COMPLETED Source: [facility] HNO ID: [id number] Author: JESUSITA QUINTERO RN Service: Nursing Author Type: Registered Nurse Type: Nursing Progress Note Filed: 05/27/2025 18:56 Note Text: Went over discharge instructions with patient. Patient verbalized understanding. IV and nuclear monitoring technician removed. IV catheter intact upon removal. Patient to go home via private vehicle. Patient assisted to discharge lounge via wheelchair. NURSING PROG Observed: 05/27/2025 5:50 PM Status: COMPLETED Source: [facility] HNO ID: [id number] Author: JESUSITA QUINTERO RN Service: Nursing Author [...] Observed: 05/27/2025 5:10 PM Status: COMPLETED Source: [facility] HNO ID: [id number] Author: LUCILLE MURPHY PT Service: Physical Therapy Author Type: Associate Director Type: Therapy (PT/OT/Speech/Resp) Filed: 05/30/2025 07:02 Note Text: Attestation signed by Lucille Murphy PT at 05/30/2025 7:02 AM I reviewed and agree with the documentation corresponding to this therapy visit. 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 Has been sleeping in recliner 2/2 to pain. (+) driving SUBJECTIVE THERAPY DIAGNOSIS Reduced mobility-other, Muscle Weakness (generalized), General symptoms and signs-other TREATMENT INTERVENTIONS Gait Training (53676) Timed Code Treatment (minutes): 23 Skilled Treatment [...] Observed: 05/27/2025 4:05 PM Status: COMPLETED Source: [facility] HNO ID: [id number] Author: JUVE BUCHANAN RN Service: Care Management Author Type: Registered Nurse Type: Care Mgt Progress Note Filed: 05/27/2025 16:08 Note Text: CARE MANAGEMENT DISCHARGE NOTE SERVICE DATE: May 27, 2025 SERVICE TIME: 4:06 PM Admission Date: 04/20/2025 LOS: 36 days Discharge Arrangement Discharge Arrangement: Home with Home Health Home Care: Nursing Services Arranged Medical Services: Skilled Home Health Care Type: Home Health Agency, Shelter Caregiver Assessment Caregiver is ready, willing and [...] HOSP MAIN G080 Home Health Care Agency [facility] Home Care SN wound care Other Follow-Up Type Dialysis Name [facility] Instructions via right double lumen IJ SIGNATURE: Juve Buchanan RN PATIENT NAME: Elia Weston DATE: May 27, 2025 TIME: 4:06 PM CASE MANAGEM Observed: 05/27/2025 11:58 AM Status: COMPLETED Source: [facility] HNO ID: [id number] Author: JUVE BUCHNAAN RN Service: Care Management Author Type: Registered Nurse Type: Care Mgt Progress Note Filed: 05/27/2025 12:20 Note Text: CARE MANAGEMENT WEEKEND PLANNING NOTE POSSIBLE WEEKEND/HOLIDAY DISCHARGE WITH HOME CARE DISCHARGE OR POSSIBLE DISCHARGE Date/Time: TBD Disposition: Home with home care SN for wound care Transport: Family to drive home Weekend Information Technology Manager Pager #: Please see Treatment Team for Care Management Weekend/Holiday coverage. Per Dialysis Coordinator patient is all set to continue his Dialysis community chair at [place]. CC Dialysis coordinator will send facility the required paperwork (since patient has been admitted for so long[facility] right double lumen IJ [...] Observed: 05/27/2025 11:40 AM Status: COMPLETED Source: [facility] HNO ID: [id number] Author: NOAH JUAREZ Chaplain Service: Spiritual Care Author Type: Door Assembler Type: Allied Health Filed: 05/27/2025 12:47 Note Text: SPIRITUALCARE Spiritual Care Visit- Brief Note Name: Elia Weston Date: May 27, 2025 Notes: Door Assembler responded to HS referral. Attempted visit wit patient. Patient was not in the room, clothes separator was informed that patient went for dialysis. Door Assembler will visit again as able. SIGNATURE: Chaplain Frank PATIENT NAME: Elia Weston DATE: May 27, 2025 TIME: 12:45 PM This is an electronically created document. IF PRINTED, PLEASE DO NOT REMOVE FROM THE CHART OR MODIFY PRINTED COPY. CONSULT PROG Observed: 05/27/2025 10:39 AM Status: COMPLETED Source: [facility] HNO ID: [id number] Author: GIBSON ABBOTT APRN.CNP Service: Nephrology Author [...] 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, PR, PE, CVA, CHB, colitis, Adjustment Disorder With Depressed Mood, MSSA bacteremia, Proximal Colon Ulcer, Hypothyroidism, Intra-Abdominal Varices, , S/P MAZE procedure, skin ulcers, GERD, YEIMY, DVTs Patient presented to [facility] 04/20[facility]25 with chief complaint of bloody [...] of first HD: 2005 -Current HD unit: [facility] -Loading Dock Hand: Dr Melendez -Schedule: Fri-Fri-Fri -Time: 4.5 hrs [...] meds eGFR<10 Outpatient dialysis disposition plan: contact [phone] and ask to speak with the help desk consultant as needed for assistance with post-discharge arrangements. Please DO NOT schedule patient for a nephrology follow up appointment. Kidney care will be provided by the primary member of technical staff at their dialysis unit upon hospital discharge. Disclosures: Parts of the current progress note may have been copied from a previous note. SIGNATURE: Gibson Abbott APRN.MIKI PATIENT NAME: Elia Weston DATE: May 27, 2025 TIME: 10:39 AM PAGER: [phone] FOR AFTER HOUR CONCERNS BETWEEN 5PM - 7AM CONTACT ON-CALL NEPHROLOGY FELLOW PROGRESS Observed: 05/27/2025 9:14 AM Status: COMPLETED [facility]: [id number] Author: ?, ?, ? Service: Nephrology Author Type: ? Type: Progress Notes Filed: 05/27/2025 09:14 Note Text: DIALYSIS PLACEMENT NOTE Confirmed patient's IHD schedule with established outpatient dialysis unit. He is able to resume schedule when discharged. Facility: [facility] ([address] [place] [address]) Days: Fri/Fri/Fri Chair Time: 9:00 AM Loading Dock Hand: Dr. Melendez Signature: Bj Rico Patient Name: Elia Weston Date: May 27, 2025 Time: 9:14 AM PT PNL PPP Collected: 05/27/2025 9:03 AM Status: F Source: [facility] Order Comment: Specimen Type : BLOOD SPECIMEN Ordering Facility: [facility] Address: [address] [place] [address] TYPE CODE TESTS RESULT OUT OF RANGE REFERENCE UNITS LAB 5902-2(LOINC) Prothrombin time 20.6 High 9.7-13.0 sec LAB 6301-6(LOINC) INR PPP 2.0 High 0.9-1.3 Result Comment: Vitamin K An tagonist (VKA) Therapeutic Range: INR 2 to 3 (Target INR of 2.5) Note: For patients treated with VKA drugs, such as warfarin, the [place] College of Chest Physicians 2012 Guideline recommends [...] JACC 2017, 70: 252-289 Performed By: #### 91156-4, PTTAC #### [facility] CLIA [id number] [address] [place] [address] [place] PTT, ANTICOAGULANT THERAPY Collected: 0 05/27/2025 9:03 AM Status: F Source: [facility] Order Comment: Specimen Type : BLOOD SPECIMEN Ordering Facility: [facility] Address: [address] [place] [address] TYPE CODE TESTS RESULT OUT OF RANGE REFERENCE UNITS LAB 08273-4(LOINC) aPTT PPP 63.3 High 23.0-32.4 sec Performed By: #### 80547-3, PTTAC #### [facility] CLIA [id number] [address] [place] [address] THERAPY NT Observed: 05/27/2025 8:44 AM Status: COMPLETED Source: [facility] HNO ID: [id number] Author: LUCILLE MURPHY PT Service: Physical Therapy Author Type: Associate Director Type: Therapy (PT/OT/Speech/Resp) Filed: 05/27/2025 09:20 Note Text: Attestation signed by Lucille Murphy PT at 05/27/2025 9:20 AM I reviewed and agree with the documentation corresponding to this therapy visit. SIGNATURE: Lucille Murphy PT DATE: May 27, 2025 TIME: 9:20 AM PHYSICAL THERAPY MISSED VISIT SERVICE DATE: 05/27/2025 SERVICE TIME: 842 ROOM: [place] [address] (Q6 - DIALYSIS) Patient not seen due to Test / Procedure. SIGNATURE: Artie Chi PTA PATIENT NAME: Elia Weston DATE: May 27, 2025 TIME: 8:44 AM PROGRESS Observed: 05/27/2025 6:53 AM Status: COMPLETED Source: [facility] HNO ID: [id number] Author: RIVAS SOLITARIO MD Service: General Internal Medicine Author Type: Physician Type: Progress Notes Filed: 05/27/2025 17:08 Note Text: Internal Medicine Progress Note Patient Name: Elia Weston Patient Location: [place] [address] Admission Date: 04/20/2025 Length of Stay: 36 Primary Service: JEFFREY Haq Staff: Rivas Solitario MD From 5pm - 7am, [place] [phone]. INTERVAL HISTORY: -No acute events overnight, SBP [...] and Airways Line Duration Peripheral 04/26/25 2100 [facility] Right Forearm 20 Gauge 30 days Dialysis / Apheresis Double Lumen 04/29/25 1005 [facility] Tunneled Right Internal Jugular 27 days Intake/Output [...] management of bleeding, and on transfer to [facility], patient began to have significant bleeding from [...] Uremia - resolved - Patient presented to [facility] Main 04/20 with left chronic [...] - Follows with Dr. Moreno (cardiology in [place]) for mgmt of Coumadin previously - Patient to be set up with Coumadin clinic at [facility] # Second-degree AV Block, Mobitz [...] Hyperparathyroidism #Hyperkalemia - stable - iHD at [facility] through R. Tunneled HD catheter MWF - [...] -- 05/23/25 1800 activity - mobilize patient (nv,ct) 04/21/25 0236 activity - mobilize patient (nv,ct) Signature: Pascale Swartz MD Internal Medicine PGY-1 [...] Pharmacist, and residents. Rivas Solitario MD mobile- [phone] CBC PNL BLD AUTO Collected: 5 3:11 AM Status: F Source: [facility] Order Comment: Specimen Type : BLOOD SPECIMEN Ordering Facility: [facility] Address: [address] [place] [address] TYPE CODE TESTS RESULT OUT OF RANGE REFERENCE UNITS LAB 6690-2(LOINC) WBC # Bld Auto 5.46 3.70-11.00 k/uL LAB 789-8(INC) RBC # Bld Auto 2.73 Low 4.20-6.00 m/uL LAB 718-7([facility]) Hgb Bld-mCnc 8.1 Low 13.0-17.0 g/dL LAB 4544-3([facility]) Hct VFr Bld Auto 25.7 Low 39.0-51.0 % LAB 787-2([facility]) MCV RBC Auto 94.1 80.0-100.0 fL LAB 785-6([facility]) MCH RBC Qn Auto 29.7 26.0-34.0 pg LAB 786-4([facility]) MCHC RBC Auto-mCnc 31.5 30.5-36.0 g/dL LAB 59136-5([facility]) RDW RBC-Rto 18.1 High 11.5-15.0 % LAB 777-3([facility]) Platelet # Bld Auto 160 150-400 k/uL LAB 77616-1([facility]) PMV Bld Auto 10.6 9.0-12.7 fL LAB 771-6([facility]) nRBC # Bld Auto <0.01 <0.01 k/uL Performed By: #### 49084-8 # ### [facility] CLIA [id number] [address] [place] [address] OF [facility] PT PNL PPP Collected: 05/27/2025 3:11 AM Status: F Source: [facility] Order Comment: Specimen Type : BLOOD SPECIMEN Ordering Facility: [facility] Address: [address] [place] [address] TYPE CODE TESTS RESULT OUT OF RANGE REFERENCE UNITS LAB 5902-2([facility]) Prothrombin time 19.5 High 9.7-13.0 sec LAB 6301-6([facility]) INR PPP 1.9 High 0.9-1.3 Result Comment: Vitamin K An tagonist (VKA) Therapeutic Range: INR 2 to 3 (Target INR of 2.5) Note: For patients treated with VKA drugs, such as warfarin, the [place] College [employer] Chest Physicians 2012 Guideline recommends [...] Chest 2012, 141:7S-47S Kevin RA, et al. [facility] 2017, 70: 252-289 Performed By: #### PTTAC, 34 528-0 #### [facility] CLIA [id number] [address] [place] [address] [place] PTT, ANTICOAGULANT THERAPY Collected: 0 05/27/2025 3:11 AM Status: F Source: [facility] Order Comment: Specimen Type : BLOOD SPECIMEN Ordering Facility: [facility] Address: [address] [place] [address] TYPE CODE TESTS RESULT OUT OF RANGE REFERENCE UNITS LAB 09421-9(LOINC) aPTT PPP 41.4 High 23.0-32.4 sec Performed By: #### PTTAC, 34 528-0 #### [facility] CLIA [id number] [address] [place], [place] [address] [place] COMP METAB 2000 PNL SERPL Collected: 3:11 AM Status: F Source: [facility] Order Comment: Specimen Type : BLOOD SPECIMEN Ordering Facility: [facility] Address: [address] [place] [address] TYPE CODE TESTS RESULT OUT OF RANGE REFERENCE UNITS LAB 2885-2(LOINC) Prot SerPl-mCnc 7.1 6.3-8.0 g/dL LAB 1751-7(LOINC) Albumin SerPl-mCnc 3.7 Low 3.9-4.9 g/dL LAB 81510-4(LOINC) Calcium SerPl-mCnc 8.2 Low 8.5-10.2 mg/dL LAB 1975-2(LOINC) Bilirub SerPl-mCnc 0.3 0.2-1.3 mg/dL LAB 6768-6(LOINC) ALP SerPl-cCnc 144 High 38-113 U/L LAB 1920-8(LOINC) AST SerPl-cCnc 27 14-40 U/L LAB 1742-6(LOINC) ALT SerPl-cCnc 5 Low 10-54 U/L LAB 2345-7(LOINC) Glucose SerPl-mCnc 86 74-99 mg/dL Result Comment: The [place] Diabetes Association (ADA) provides guidance for cutoff [...] Standards of Medical Care in Diabetes 2016, [place] Diabetes Association. Diabetes Care. 2016.39(Suppl 1). LAB 3094-0(LOINC) BUN SerPl-mCnc 20 9-24 mg/dL LAB 2160-0(LOINC) Creat SerPl-mCnc 5.24 High 0.73-1.22 mg/dL LAB 2951-2(LOINC) Sodium SerPl-sCnc 139 136-144 mmol/L LAB 2823-3(LOINC) Potassium SerPl-sCnc 4.5 3.7-5.1 mmol/L LAB 2075-0(LOINC) Chloride SerPl-sCnc 100 98-107 mmol/L LAB 2028-9(LOINC) CO2 SerPl-sCnc 25 22-30 mmol/L LAB 66346-0(LOINC) Anion Gap SerPl-sCnc 14 8-15 mmol/L LAB 20348-1(LOINC) eGFRcr SerPlBld CKD-EPI 2020 13 Low >=60 [...] accurately reflect actual GFR. Performed By: #### 36895-3 # ### [facility] CLIA [id number] [address] [place] [address] PTT, ANTICOAGULANT THERAPY Collected: 0 05/26/2025 6:20 PM Status: F Source: [facility] Order Comment: Specimen Type : BLOOD SPECIMEN Ordering Facility: [facility] Address: [address] [place] [address] TYPE CODE TESTS RESULT OUT OF RANGE REFERENCE UNITS LAB 86515-2(LOINC) aPTT PPP 45.3 High 23.0-32.4 sec Performed By: #### PTTAC ### # [facility] CLIA [id number] [address] [place] [address] OF [facility] THERAPY NT Observed: 05/26/2025 5:07 PM Status: COMPLETED Source: [facility] HNO ID: [id number] Author: LUCILLE MURPHY PT Service: Physical Therapy Author Type: Associate Director Type: Therapy (PT/OT/Speech/Resp) Filed: 05/27/2025 07:24 Note Text: Attestation signed by Lucille Murphy PT at 05/27/2025 7:24 AM I reviewed and agree with the documentation corresponding to this therapy visit. 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 Has been sleeping in recliner 2/2 to pain. (+) driving SUBJECTIVE THERAPY DIAGNOSIS Reduced mobility-other, Muscle Weakness (generalized), General symptoms and signs-other TREATMENT INTERVENTIONS Therapeutic Activity (94480), Gait Training (34935) Timed Code Treatment (minutes): 23 Skilled Treatment [...] Observed: 05/26/2025 4:56 PM Status: COMPLETED Source: [facility] ID: [id number] Author: NADYA SWAIN RN Service: Care Management [...] prior to June 07 appointment. CM messaged [facility] to inform them Dr. Vang has agreed and asked them to reach out to her to receive home care orders and they can see upon discharge. [facility] did not respond through [facility]. CM met with patient at bedside. Patient [...] Observed: 05/26/2025 4:39 PM Status: COMPLETED Source: [facility] ID: [id number] Author: SHNANON HOOD Music Therapist Service: Music Therapy Author [...] which he had directed at his home/family confucianist. During the music, pt expressed much emotion and spirituality through the music, as observed by appropriate tears and animated story-telling. At end of visit, pt expressed gratitude and reported improvement in mood. Music Therapy will continue to follow, pending length of admission. SIGNATURE: Shannon Hood Music Therapist PATIENT NAME: Elia Weston DATE: May 26, 2025 TIME: 4:39 PM PAGER/CONTACT #: [phone] THERAPY NT Observed: 05/26/2025 2:48 PM Status: COMPLETED Source: [facility] ID: [id number] Author: RENÉE MARTINES PT, DPT Service: Physical Therapy Author Type: Associate Director Type: Therapy (PT/OT/Speech/Resp) Filed: 05/27/2025 07:47 Note Text: Attestation signed by Renée Martines PT, DPT at 05/27/2025 7:47 AM I reviewed and agree with the documentation corresponding to this therapy visit. SIGNATURE: Renée Martines PT, DPT DATE: May 27, 2025 TIME: 7:47 AM PHYSICAL THERAPY MISSED VISIT SERVICE DATE: 05/26/2025 SERVICE TIME: 1445 ROOM: [place] [address] Patient not seen due to Patient Not Available, other services at bedside on multiple attempts. SIGNATURE: Artie Chi PTA PATIENT NAME: Elia Weston DATE: May 26, 2025 TIME: 2:48 PM CONSULT PROG Observed: 05/26/2025 2:17 PM Status: COMPLETED Source: [facility] ID: [id number] Author: MYRIAM WARD APRN.INDUSTRIAL TECHNOLOGIST Service: Plastic Surgery Author Type: Nurse Practitioner [...] mg/dL Final Impression/Recommendations 45 year old male [facility], significant for ESRD on HD (MWF), CAD [...] Observed: 05/26/2025 10:45 AM Status: COMPLETED Source: [facility] ID: [id number] Author: BOLA GARVIN, PhD Service: Psychology Author [...] from: Art Therapy, Music Therapy, Aromatherapy, and Door Assembler/Spiritual Services. - Following d/c the patient may benefit from outpatient psychotherapy follow-up ongoing psychology support. Resources provided to patient. SIGNATURE: Janak Landry PsyD PATIENT NAME: Elia Weston DATE: May 26, 2025 TIME: 11:54 AM CL PSYCHOLOGY PAGER: [phone] CBC PNL BLD AUTO Collected: 5:59 AM Status: F Source: [facility] Order Comment: Specimen Type : BLOOD SPECIMEN Ordering Facility: [facility] Address: [address] [place] [address] TYPE CODE TESTS RESULT OUT OF RANGE REFERENCE UNITS LAB 6690-2([facility]) WBC # Bld Auto 4.79 3.70-11.00 k/uL LAB 789-8(LOINC) RBC # Bld Auto 2.78 Low 4.20-6.00 m/uL LAB 718-7(LOINC) Hgb Bld-mCnc 8.0 Low 13.0-17.0 g/dL LAB 4544-3(LOINC) Hct VFr Bld Auto 26.2 Low 39.0-51.0 % LAB 787-2(LOINC) MCV RBC Auto 94.2 80.0-100.0 fL LAB 785-6(LOINC) MCH RBC Qn Auto 28.8 26.0-34.0 pg LAB 786-4(LOINC) MCHC RBC Auto-mCnc 30.5 30.5-36.0 g/dL LAB 74463-0(LOINC) RDW RBC-Rto 18.0 High 11.5-15.0 % LAB 777-3(LOINC) Platelet # Bld Auto 161 150-400 k/uL LAB 62017-6(LOINC) PMV Bld Auto 11.0 9.0-12.7 fL LAB 771-6(LOINC) nRBC # Bld Auto <0.01 <0.01 k/uL Performed By: #### 89671-6 # ### [facility] CLIA [id number] [address] [place] [address] [place] COMP METAB 2000 PNL SERPL Collected: 5:59 AM Status: F Source: [facility] Comment: Specimen Type : BLOOD SPECIMEN Ordering Facility: [facility] Address: [address] [place], [place] [id number] TYPE CODE TESTS RESULT OUT OF RANGE REFERENCE UNITS LAB 2885-2(LOINC) Prot SerPl-mCnc 7.3 6.3-8.0 g/dL LAB 1751-7(LOINC) Albumin SerPl-mCnc 3.6 Low 3.9-4.9 g/dL LAB 66522-5(LOINC) Calcium SerPl-mCnc 8.4 Low 8.5-10.2 mg/dL LAB 1975-2(LOINC) Bilirub SerPl-mCnc 0.2 0.2-1.3 mg/dL LAB 6768-6(LOINC) ALP SerPl-cCnc 144 High 38-113 U/L LAB 1920-8(LOINC) AST SerPl-cCnc 25 14-40 U/L LAB 1742-6(LOINC) ALT SerPl-cCnc <5 Low 10-54 U/L LAB 2345-7(LOINC) Glucose SerPl-mCnc 75 74-99 mg/dL Result Comment: The [place] Diabetes Association (ADA) provides guidance for cutoff [...] Standards of Medical Care in Diabetes 2016, [place] Diabetes Association. Diabetes Care. 2016.39(Suppl 1). LAB 3094-0(LOINC) BUN SerPl-mCnc 12 9-24 mg/dL LAB 2160-0(LOINC) Creat SerPl-mCnc 4.03 High 0.73-1.22 mg/dL LAB 2951-2(LOINC) Sodium SerPl-sCnc 139 136-144 mmol/L LAB 2823-3(LOINC) Potassium SerPl-sCnc 4.6 3.7-5.1 mmol/L LAB 2075-0(LOINC) Chloride SerPl-sCnc 101 98-107 mmol/L LAB 2027-(LOINC) CO2 SerPl-sCnc 26 22-30 mmol/L LAB 80623-8(LOINC) Anion Gap SerPl-sCnc 12 8-15 mmol/L LAB 12045-4(LOINC) eGFRcr SerPlBld CKD-EPI 2020 18 Low >=60 [...] accurately reflect actual GFR. Performed By: #### 31793-1 # ### [facility] CLIA [id number] [address] [place] [address] STATES OF [facility] PT PNL PPP Collected: 05/26/2025 5:59 AM Status: F Source: [facility] Order Comment: Specimen Type : BLOOD SPECIMEN Ordering Facility: [facility] Address: [address] [place] [address] TYPE CODE TESTS RESULT OUT OF RANGE REFERENCE UNITS LAB 5902-2(LOINC) Prothrombin time 20.0 High 9.7-13.0 sec LAB 6301-6(LOINC) INR PPP 1.9 High 0.9-1.3 Result Comment: Vitamin K An tagonist (VKA) Therapeutic Range: INR 2 to 3 (Target INR of 2.5) Note: For patients treated with VKA drugs, such as warfarin, the [place] College of Chest Physicians 2012 Guideline recommends [...] Chest 2012, 141:7S-47S Kevin RA, et al. [facility] 2017, 70: 252-289 Performed By: #### 94933-1 # ### [facility] CLIA [id number] [address] [place] [address] OF [facility] PROGRESS Observed: 05/26/2025 5:31 AM Status: COMPLETED Source: [facility] ID: [id number] Author: RIVAS SOLITARIO MD Service: General Internal Medicine Author Type: Physician Type: Progress Notes Filed: 05/26/2025 18:24 Note Text: Internal Medicine Progress Note Patient Name: Elia Weston Patient Location[place] [facility] 025/[id number] Admission Date: 04/20/2025 Length of Stay: 35 Primary Service: JEFFREY Haq Staff: Rivas Solitario MD From 5pm - 7am, [place] [phone]. INTERVAL HISTORY: - No acute events overnight, [...] and Airways Line Duration Peripheral 04/26/25 2100 [facility] Right Forearm 20 Gauge 29 days Dialysis / Apheresis Double Lumen 04/29/25 1005 [facility] Tunneled Right Internal Jugular 27 days Intake/Output [...] management of bleeding, and on transfer to [facility], patient began to have significant bleeding from [...] Uremia - resolved - Patient presented to [facility] Main 04/20 with left chronic [...] consulted: - discontinued clobetasol 0.05% ointment - [facility] Derm f/u outpatient - Wound [...] - Follows with Dr. Moreno (cardiology in [place]) for mgmt of Coumadin previously - Patient [...] Hyperparathyroidism #Hyperkalemia - stable - iHD at [facility] through R. Tunneled HD catheter MWF - [...] -- 05/23/25 1800 activity - mobilize patient (nv,oh) 04/21/25 0236 activity - mobilize patient (nv,ct) Signature: Pascale Swartz MD Internal Medicine PGY-1 [...] and residents and medical. Rivas Solitario MD [facility] [phone] GAS + CO PNL BLDV Collected: 5 2:23 AM Status: F Source: [facility] Order Comment: Specimen Type : VENOUS BLOOD SPECIMEN Ordering Facility: [facility] Address: [address] [place] [address] TYPE CODE TESTS RESULT OUT OF RANGE REFERENCE UNITS LAB 2746-6(LOINC) pH BldV 7.38 7.32-7.42 LAB 00785-9(LOINC) pH temp adj BldV 7.39 7.32-7.42 LAB 202-4(LOINC) pCO2 BldV 52 42-55 mmHg LAB 08979-3(LOINC) pCO2 temp adj BldV 52 42-55 mmHg LAB 2705-2(LOINC) pO2 BldV 24 Low 35-45 mmHg LAB 83902-3(LOINC) pO2 temp adj BldV 24 Low 35-45 mmHg LAB 2711-0(LOINC) SaO2 % BldV 34 Low 60-85 % LAB 1927-3(LOINC) Base excess BldV Calc-sCnc 5 High 0-2 mmol/L LAB 22866-5(LOINC) HCO3 BldV-sCnc 31 High 24-28 mmol/L LAB 2716-9(LOINC) OxyHgb MFr BldV 33 Low 60-85 % LAB 2032-1(LOINC) COHgb MFr BldV 0.9 0.0-2.0 % Result Comment: Carboxyhemog lobin Reference Range for Smokers: 2.0-8.0% LAB 2614-6(LOINC) MetHgb MFr Bld 0.9 0.0-1.5 % LAB 2947-0(LOINC) Sodium Bld-sCnc 140 136-144 mmol/L LAB 6298-4(LOINC) Potassium Bld-sCnc 5.5 High 3.5-5.0 mmol/L LAB 52657-0(LOINC) Ca-I Bld-mCnc 1.04 Low 1.08-1.30 m mol/L LAB 71236-7([facility]) Ca-I adj pH7.4 BldA-sCnc 1.03 Low 1.08-1.30 mmol/L LAB 2339-0([facility]) Glucose Bld-mCnc 92 60-105 mg/dL LAB 94152-9([facility]) Lactate Bld-sCnc 1.6 0.5-2.2 mmol/L LAB 718-7([facility]) Hgb Bld-mCnc 8.2 Low 13.0-17.0 g/dL LAB 4544-3([facility]) Hct VFr Bld Auto 25.5 Low 39.0-51.0 % LAB VTMP TEMPERATURE, BODY 36.7 C LAB VO2TH O2 THERAPY RA=Room Air Performed By: #### 96473-8 # ### [facility] CLIA [id number] [address] [place] [address] CASE MANAGEM Observed: 05/25/2025 2:56 PM Status: COMPLETED Source: [facility] ID: [id number] Author: JUVE BUCHANAN RN Service: Care Management [...] new PCP 06/[address] Pbalo Vang, she said she would follow his C and weekly INR checks. Pt will need to go to outpatient clinic until then. MARTA Roach will follow. Community Dialysis Chair confirmed with [facility] Dialysis coordinator, she will send facility the required paperwork (since patient has been admitted for so long) [facility] Najma Melendez via right double lumen IJ SIGNATURE: Juve Buchanan RN PATIENT NAME: Elia Weston DATE: May 25, 2025 TIME: 2:56 PM PROGRESS Observed: 05/25/2025 12:29 PM Status: COMPLETED Source: [facility] ID: [id number] Author: BEULAH RAMEY MD Service: General Internal Medicine Author Type: Physician Type: Progress Notes Filed: 05/25/2025 12:40 Note Text: [facility] STAFF PHYSICIAN NOTE OF PERSONAL INVOLVEMENT IN [...] episodes. Course was also complicated by prolonged TX (worsening) for which he was seen by [...] Staff, Dept. Of Hospital Medicine PAGER - [phone] CONSULT PROG Observed: 05/25/2025 11:10 AM Status: COMPLETED Source: [facility] ID: [id number] Author: GIBSON ABBOTT APRN.MIKI Service: Nephrology Author Type: Nurse Practitioner Type: Consult Progress Note Filed: 05/25/2025 11:14 Note Text: CONSULT PROGRESS NOTE NEPHROLOGY Q6 SERVICE SERVICE DATE: 05/25/2025 SERVICE TIME: 11:10 AM SUBJECTIVE INTERVAL HISTORY: -Patient seen on dialysis, single evaluation. Orders confirmed and documented per LEONEL. -System clotted long term into treatment, heparin has been held due [...] 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, PR, PE, CVA, CHB, colitis, Adjustment Disorder With Depressed Mood, MSSA bacteremia, Proximal Colon Ulcer, Hypothyroidism, Intra-Abdominal Varices, , S/P MAZE procedure, skin ulcers, GERD, YEIMY, DVTs [facility] with chief complaint of [...] of first HD: 2005 -Current HD unit: [facility] -Loading Dock Hand: Dr Melendez -Schedule: Fri-Fri-Fri -Time: 4.5 hrs [...] meds eGFR<10 Outpatient dialysis disposition plan: contact [phone] and ask to speak with the help desk consultant as needed for assistance with post-discharge arrangements. Please DO NOT schedule patient for a nephrology follow up appointment. Kidney care will be provided by the primary member of technical staff at their dialysis unit upon hospital discharge. Disclosures: Parts of the current progress note may have been copied from a previous note. SIGNATURE: Gibson Abbott APRN.CNP PATIENT NAME: Elia Weston DATE: May 25, 2025 TIME: 11:10 AM PAGER: [phone] FOR AFTER HOUR CONCERNS BETWEEN 5PM - 7AM CONTACT ON-CALL NEPHROLOGY FELLOW PT PNL PPP Collected: 5 10:15 AM Status: F Source: [facility] Order Comment: Specimen Type : BLOOD SPECIMEN Ordering Facility: [facility] Address: [address] [place] [address] TYPE CODE TESTS RESULT OUT OF RANGE REFERENCE UNITS LAB 5902-2(LOINC) Prothrombin time 23.0 High 9.7-13.0 sec LAB 6301-6(LOINC) INR PPP 2.2 High 0.9-1.3 Result Comment: Vitamin K An tagonist (VKA) Therapeutic Range: INR 2 to 3 (Target INR of 2.5) Note: For patients treated with VKA drugs, such as warfarin, the [place] College of Chest Physicians 2012 Guideline recommends [...] Chest 2012, 141:7S-47S Kevin RA, et al. [facility] 2017, 70: 252-289 Performed By: #### 17964-5 # ### [facility] CLIA [id number] [address] [place] [address] STATES OF [facility] CBC PNL BLD AUTO Collected: 5 10:15 AM Status: F Source: [facility] Order Comment: Specimen Type : BLOOD SPECIMEN Ordering Facility: [facility] Address: [address] [place] [address] TYPE CODE TESTS RESULT OUT OF RANGE [...] MCHC RBC Auto-mCnc 30.6 30.5-36.0 g/dL LAB 81744-0(LOINC) RDW RBC-Rto 18.4 High 11.5-15.0 % LAB 777-3(LOINC) Platelet # Bld Auto 165 150-400 k/uL LAB 95852-9(LOINC) PMV Bld Auto 10.7 9.0-12.7 fL LAB 771-6(LOINC) nRBC # Bld Auto <0.01 <0.01 k/uL Performed By: #### 34670-1 # ### [facility] CLIA [id number] [address] [place] [address] OF [facility] NURSING PROG Observed: 05/25/2025 6:02 AM Status: COMPLETED Source: [facility] ID: [id number] Author: TONY MOSQUEDA RN Service: Nursing Author Type: Registered Nurse Type: Nursing Progress Note Filed: 05/25/2025 06:03 Note Text: Report given to dialysis. Estimated time of procedure is around 630am. CNPN Observed: 05/25/2025 12:00 AM Status: COMPLETED Source: [facility] Telephone (PHARMN) ELIA WESTON ([id number]) 1980 [facility] Date Time Provider Department 05/25/25 PHARMACIST PHARMN During your visit today, we recorded the following information about you: Krystal Nieves RN 05/25/2025 9:55 AM Signed Pharmacy Anticoagulation Clinic received a new referral that is incomplete. Please place an outpatient referral (order #[id number]) and include the name of the staff [...] therapy is Indefinite [facility] Warfarin start date: 2020 Patient was previously [...] 06/09. Patient scheduled for POCT/New Ed at [facility] on this date: TBD based on INR [...] Department of Pharmacy and member of the [facility]. Under this policy, you [...] your referral, Anticoagulation Management Services Samra Carrillo [facility] 06/09/2025 12:19 PM Signed I have read and agree with note below. Samra Carrillo [facility] 06/09/2025 4:47 PM Signed No INR available or in process. Patient has dosing for today. Zaria Segundo RP 06/10/2025 12:57 PM Signed Called and stp. Pt states he has a blanchard grinder operator in [place] who can manage his INRs but he prefers [facility]. Advised pt of available [place] [facility] labs, pt states the [facility] is close by. Advised him of hours (closes at 5pm today). He will go in today after dialysis. Advised pt to continue same warfarin dose and PAC will call tomorrow AM with finally results and dosing. Pt also advised he is est with [facility] physician in [place] next 06/17. Sophie Haq Chris [facility] 06/11/2025 11:50 AM Signed Called and unable to reach patient via telephone. No INR in process. 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 - warfarin (COUMADIN) 4 mg tablet Take 1 tablet by mouth every Rwlaxt-Bmgdowt-Yzbnymbkk-Friday-Friday - Cinacalcet HCl (SENSIPAR) 30 mg tablet [...] ESRD (end stage renal disease) on dialysis ([facility]*10/16/2012 HTN (hypertension) [I10] 10/16/2012 Obesity [E66.9] 11/02/2012 Epigastric pain [R10.13] 11/02/2012 Mechanical complication of other vascular devic*02/12/2013 Right knee pain [M25.561] 07/29/2013 Obesity, morbid, BMI 40.0-49.9 ([facility]) [E66.01] 02/22/2014 Tendinitis of left shoulder [M77.8] 02/22/2014 Mass of left thigh [R22.42] 09/08/2014 Thigh pain [M79.659] 09/08/2014 Hematuria [R31.9] 12/08/2014 Dialysis patient ([facility]) [Z99.2] 12/08/2014 YEIMY (obstructive sleep apnea) [G47.33] 05/09/2015 Abdominal or pelvic swelling, mass, or lump, ri*05/09/2015 Secondary hyperparathyroidism, renal (HCC) [N25*05/09/2015 Renal osteodystrophy [N25.0] 05/09/2015 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*05/09/2015 Groin pain [R10.30] 05/09/2015 Personal history of DVT (deep vein thrombosis) *03/28/2016 Sprain of medial collateral ligament of right k*04/22/2016 ESRD (end stage renal disease) ([facility]) [N18.6] 04/21/2019 PAF (paroxysmal atrial fibrillation) ([facility]) [I48*12/02/2018 A-V fistula ([facility]) [I77.0] 04/23/2019 Anemia of chronic disease [D63.8] 04/23/2019 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] 05/18/2021 ESRD on hemodialysis ([facility]) [N18.6, Z99.2] 04/07/2019 Expressive dysphasia [R47.02] 08/01/2021 History of endocarditis [Z86.79] 08/01/2021 Hearing loss [H91.90] 02/17/2018 History of non-ST elevation myocardial infarcti*11/08/2019 Heart failure, unspecified ([facility]) [I50.9] 08/05/2011 Iron deficiency anemia, unspecified [D50.9] 05/31/2008 Chronic anticoagulation [Z79.01] 08/01/2021 Mitral valve disease [I05.9] 08/01/2021 Myocardial infarction ([facility]) [I21.9] 08/01/2021 Noncompliance with medication regimen [Z91.148] 08/01/2021 Paroxysmal atrial flutter ([facility]) [I48.92] 08/01/2021 Pulmonary embolism ([facility]) [I26.99] 08/01/2021 Pulmonary edema [J81.1] 08/01/2021 Stenosis of other vascular prosthetic devices, *05/22/2021 Unspecified atherosclerosis of [place] arteries *10/30/2013 Vitamin D deficiency [E55.9] 10/16/2020 [...] 30 t* 3 06/13/2025 Cmt: Anticoagulation Clinic [phone] Route: PO Sig: Take 1 tablet by mouth once daily. Medications Discontinued During This Encounter Prescriptions - warfarin (COUMADIN) 5 mg tablet (Discontinued) Take 1 tablet by mouth every and Friday Patient should start on June 09, 2025. Encounter Status:Closed by KRYSTAL NIEVES on 06/09/25 BAS METAB 2000 PNL SERPL Collected: 4:40 PM Status: F Source: [facility] Order Comment: Specimen Type : BLOOD SPECIMEN Ordering Facility: [facility] Address: [place] [address] TYPE CODE TESTS RESULT OUT OF RANGE REFERENCE UNITS LAB 2345-7(LOINC) Glucose SerPl-mCnc 92 74-99 mg/dL Result Comment: The [place] Diabetes Association (ADA) provides guidance for cutoff [...] Standards of Medical Care in Diabetes 2016, [place] Diabetes Association. Diabetes Care. 2016.39(Suppl 1). LAB 3094-0(LOINC) BUN SerPl-mCnc 23 9-24 mg/dL LAB 2160-0(LOINC) Creat SerPl-mCnc 5.99 High 0.73-1.22 mg/dL LAB 2951-2(LOINC) Sodium SerPl-sCnc 142 136-144 mmol/L LAB 2823-3(LOINC) Potassium SerPl-sCnc 5.3 High 3.7-5.1 mmol/L LAB 2075-0(LOINC) Chloride SerPl-sCnc 93 Low 98-107 mmol/L LAB 2027-9(LOINC) CO2 SerPl-sCnc 27 22-30 mmol/L LAB 03218-2(LOINC) Anion Gap SerPl-sCnc 22 High 8-15 mmol/L LAB 03036-7(LOINC) Calcium SerPl-mCnc 7.8 Low 8.5-10.2 mg/dL LAB 92116-3(LOINC) eGFRcr SerPlBld CKD-EPI 2020 11 Low >=60 [...] accurately reflect actual GFR. Performed By: #### 83896-4 # ### [facility] CLIA [id number] [address] [place] [address] [place] CONSULT PROG Observed: 05/24/2025 3:31 PM Status: COMPLETED Source: [facility] ID: [id number] Author: GIBSON ABBOTT APRN.INDUSTRIAL TECHNOLOGIST Service: Nephrology Author Type: Nurse Practitioner Type: [...] 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, PR, PE, CVA, CHB, colitis, Adjustment Disorder With Depressed Mood, MSSA bacteremia, Proximal Colon Ulcer, Hypothyroidism, Intra-Abdominal Varices, , S/P MAZE procedure, skin ulcers, GERD, YEIMY, DVTs Patient presented to [facility] 04[facility]25 with chief complaint of bloody [...] [facility] HD: [facility] Hand: Dr Melendez -Schedule: Fri-Fri-Fri -Time: 4.5 hrs [...] meds eGFR<10 Outpatient dialysis disposition plan: contact [phone] and ask to speak with the help desk consultant as needed for assistance with post-discharge arrangements. Please DO NOT schedule patient for a nephrology follow up appointment. Kidney care will be provided by the primary member of technical staff at their dialysis unit upon hospital discharge. Disclosures: Parts of the current progress note may have been copied from a previous note. SIGNATURE: Gibson Abbott APRN.CNP PATIENT NAME: Elia Weston DATE: May 24, 2025 TIME: 3:32 PM PAGER: [phone] FOR AFTER HOUR CONCERNS BETWEEN 5PM - 7AM CONTACT ON-CALL NEPHROLOGY FELLOW PROGRESS Observed: 05/24/2025 1:58 PM Status: COMPLETED Source: [facility] ID: [id number] Author: BEULAH RAMEY MD Service: General Internal Medicine Author Type: Physician Type: Progress Notes Filed: 05/24/2025 14:04 Note Text: [facility] STAFF PHYSICIAN NOTE OF PERSONAL INVOLVEMENT IN [...] Patient has had a prolonged hospitalization in [facility] 10/12/2024 - 11/02/2024 with pain [...] have increased pain and was admitted in [place] 02/16-02/18/2025, received Vancomycin and Zosyn. For the [...] episodes. Course was also complicated by prolonged TX (worsening) for which he was seen by [...] Staff, Dept. Of Hospital Medicine PAGER - [phone] THERAPY NT Observed: 05/24/2025 1:26 PM Status: COMPLETED Source: [facility] ID: [id number] Author: LUCILLE MURPHY PT Service: Physical Therapy Author Type: Associate Director Type: Therapy (PT/OT/Speech/Resp) Filed: 05/24/2025 14:03 Note Text: Attestation signed by Lucille Murphy PT at 05/24/2025 2:03 PM I reviewed and agree with the documentation corresponding to this therapy visit. 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 Has been sleeping in recliner 2/2 to pain. (+) driving SUBJECTIVE THERAPY DIAGNOSIS Reduced mobility-other, Muscle Weakness (generalized), General symptoms and signs-other TREATMENT INTERVENTIONS Therapeutic Activity (06638), Gait Training (01312) Timed Code Treatment (minutes): 23 Skilled Treatment [...] Observed: 05/24/2025 11:30 AM Status: F Source: [facility] Ventricular Rate : 88 BPM QRS Duration : 68 ms Q-T Interval : 386 ms QTC Calculation(Bazett) : 467 ms Calculated R [place] : 155 degrees Calculated T [place] : 47 degrees SINUS RHYTHM WITH 1ST DEGREE AV BLOCK POSSIBLE RIGHT VENTRICULAR HYPERTROPHY POSSIBLE ANTEROLATERAL INFARCTION , AGE UNDETERMINED ABNORMAL ECG Confirmed by ARPITA PACHECO MD ([id number]) on 06/06/2025 3:47:09 PM NAME : ELIA WESTON PID : [id number] : 1980 Gender : Male Race : ORD : [id number] Procedure Date : May 24 2025 11:30:30 [...] Observed: 05/24/2025 11:20 AM Status: COMPLETED Source: [facility] HNO ID: [id number] Author: BOLA GARVIN, PhD Service: Psychology Author [...] and music therapy as well as the clothes separator. Psychology will continue to follow. SIGNATURE: Janak Landry PsyD PATIENT NAME: Elia Weston DATE: May 24, 2025 TIME: 3:01 PM PSYCHOLOGY PAGER: [phone] ALLIED HEALTH Observed: 05/24/2025 10:50 AM Status: COMPLETED Source: [facility] HNO ID: [id number] Author: NOAH JUAREZ Chaplain Service: Spiritual Care Author Type: Door Assembler Type: Allied Health Filed: 05/24/2025 14:34 Note Text: SPIRITUAL CARE ASSESSMENT SERVICE DATE: 05/24/2025 SERVICE TIME: 10:50 Visit with: Patient Length of visit (minutes): 15 Presybeterian / Spirituality: Adventist Reason: Initial visit ASSESSMENT Emotional Disposition: Confused, [...] 24, 2025 TIME: 2:32 PM PAGER/CONTACT #: [phone] XR CHEST 2V FRONTAL/LAT Observed: 2024 10:37 AM Status: F Source: [facility] * * *Final Report* * * DATE [...] fractured. IMPRESSION: Please see body of report. Market Relationship Manager: AZAM Transcribe Date/Time: May 24 2025 11:37A Dictated by : JAC AGUILERA MD This examination was interpreted and the report reviewed and electronically signed by: JAC AGUILERA MD on May 24 2025 11:41AM EST [id number] CONSULT PROG Observed: 05/24/2025 10:21 AM Status: COMPLETED Source: [facility] HNO ID: [id number] Author: KENTRELL BHARDWAJ MD Service: Electrophysiology Author Type: Fellow Type: Consult Progress Note Filed: 05/24/2025 10:23 Note Text: [facility] ELECTROPHYSIOLOGY CONSULT PROGRESS NOTE Elia Weston [id number] PRIMARY SERVICE: Internal Medicine CONSULTING SERVICE: Electrophysiology [...] - 14 Aug: Awaiting YONATHAN. ECG with TX continuing to prolong (~450 ms). - 15 Aug: Unable to undergo YONATHAN with conscious sedation (required a lot of sedation to be comfortable resulting in hypotension). - 16 Aug: ECG demonstrates TX ~430 ms - 18 Aug: Discussed EP plan in detail (YONATHAN to assess for IE, if no IE leadless PPM; if IE, multidisciplinary treatment including possible OHS). - 20 Apr: YONATHAN formal read without evidence of endocarditis - Aug: Atropine 0.5mg administered bedside: pre-atropine TX 420ms at HR 93, post-atropine TX 420ms at HR 113 - 23 Aug: [...] Cardiac Electrophysiology Fellow PGY-7 Heart,Vascular, and Thoracic [facility] Post Micra Patient Instructions Activity: No [...] Observed: 05/24/2025 9:30 AM Status: COMPLETED Source: [facility] HNO ID: [id number] Author: ADIEL MCKINLEY DTR Service: Nutrition Therapy Author Type: Java Engineer Type: Nutrition Filed: 05/24/2025 12:10 Note Text: NUTRITION THERAPY AGRICULTURAL SERVICE TECHNICIAN NOTE SERVICE DATE: 05/24/2025 SERVICE TIME: 929 [...] AUTO Collected: 7:11 AM Status: F Source: [facility] Order Comment: Specimen Type : BLOOD SPECIMEN Ordering Facility: [facility] Address: [address] [place] [address] TYPE CODE TESTS RESULT OUT OF RANGE [...] RBC Auto-mCnc 29.6 Low 30.5-36.0 g/dL LAB 09134-4(LOINC) RDW RBC-Rto 18.5 High 11.5-15.0 % LAB 777-3(LOINC) Platelet # Bld Auto 201 150-400 k/uL LAB 13473-0(LOINC) PMV Bld Auto 11.2 9.0-12.7 fL LAB 771-6(LOINC) nRBC # Bld Auto <0.01 <0.01 k/uL Performed By: #### 04687-5 # ### [facility] CLIA [id number] [address] [place] [address] [place] COMP METAB 2000 PNL SERPL Collected: 7:11 AM Status: F Source: [facility] Order Comment: Specimen Type : BLOOD SPECIMEN Ordering Facility: [facility] Address: [place] [address] TYPE CODE TESTS RESULT OUT OF RANGE REFERENCE UNITS LAB 2885-2(LOINC) Prot SerPl-mCnc 7.5 6.3-8.0 g/dL LAB 1751-7(LOINC) Albumin SerPl-mCnc 3.7 Low 3.9-4.9 g/dL LAB 56501-4(LOINC) Calcium SerPl-mCnc 7.6 Low 8.5-10.2 mg/dL LAB 1975-2(LOINC) Bilirub SerPl-mCnc 0.2 0.2-1.3 mg/dL LAB 6768-6(LOINC) ALP SerPl-cCnc 146 High 38-113 U/L LAB 1920-8(LOINC) AST SerPl-cCnc 28 14-40 U/L LAB 1742-6(LOINC) ALT SerPl-cCnc 11 10-54 U/L LAB 2345-7(LOINC) Glucose SerPl-mCnc 105 High 74-99 mg/dL Result Comment: The [place] Diabetes Association (ADA) provides guidance for cutoff [...] Standards of Medical Care in Diabetes 2016, [place] Diabetes Association. Diabetes Care. 2016.39(Suppl 1). LAB 3094-0(LOINC) BUN SerPl-mCnc 20 9-24 mg/dL LAB 2160-0(LOINC) Creat SerPl-mCnc 5.45 High 0.73-1.22 mg/dL LAB 2951-2(LOINC) Sodium SerPl-sCnc 135 Low 136-144 mmol/L LAB 2823-3(LOINC) Potassium SerPl-sCnc 6.3 High Alert 3.7-5.1 mmol/L LAB 2075-0(LOINC) Chloride SerPl-sCnc 95 Low 98-107 mmol/L LAB 2027-9(LOINC) CO2 SerPl-sCnc 25 22-30 mmol/L LAB 55076-2(LOINC) Anion Gap SerPl-sCnc 15 8-15 mmol/L LAB 92034-8(LOINC) eGFRcr SerPlBld CKD-EPI 2020 13 Low >=60 [...] accurately reflect actual GFR. Performed By: #### 52939-0 # ### [facility] CLIA [id number] [address] [place] [address] [place] PT PNL PPP Collected: 05/24/2025 7:11 AM Status: F Source: [facility] Order Comment: Specimen Type : BLOOD SPECIMEN Ordering Facility: [facility] Address: [address] [place] [address] TYPE CODE TESTS RESULT OUT OF RANGE REFERENCE UNITS LAB 5902-2(LOINC) Prothrombin time 17.7 High 9.7-13.0 sec LAB 6301-6(LOINC) INR PPP 1.7 High 0.9-1.3 Result Comment: Vitamin K An tagonist (VKA) Therapeutic Range: INR 2 to 3 (Target INR of 2.5) Note: For patients treated with VKA drugs, such as warfarin, the [place] College of Chest Physicians 2012 Guideline recommends [...] Chest 2012, 141:7S-47S Kevin RUSHING et al. [facility] 2017, 70: 252-289 Performed By: #### 12824-2 # ### [facility] CLIA [id number] [address] [place] [address] [place] PROGRESS Observed: 05/24/2025 5:24 AM Status: COMPLETED Source: [facility] HNO ID: [id number] Author: BEULAH RAMEY MD Service: General Internal Medicine Author Type: Physician Type: Progress Notes Filed: 05/24/2025 13:49 Note Text: DEPARTMENT OF HOSPITAL MEDICINE PROGRESS NOTE SERVICE DATE: 05/24/2025 SERVICE TIME: 5:39 AM Hospital Medicine/Primary Attending: Beulah Ramey MD NIGHT AND WEEKEND COVERAGE: [facility] COVERAGE: Nights: [phone], please page Team Jeffrey Haq; overnight/admitting pager [phone] Subjective Chief Complaint: Pain and chronic chest [...] and Airways Line Duration Peripheral 04/26/25 2100 [facility] Right Forearm 20 Gauge 27 days Dialysis / Apheresis Double Lumen 04/29/25 1005 [facility] Tunneled Right Internal Jugular 24 days DATA: [...] management of bleeding, and on transfer to [facility], patient began to have significant bleeding from [...] - Follows with Dr. Moreno (cardiology in [place]) for mgmt of Coumadin, will need follow-up [...] Hypotension-stable #Secondary Hyperparathyroidism #Hyperkalemia - iHD at [facility] through R. Tunneled HD catheter MWF - [...] -- 04/10/25 1015 activity - mobilize patient (nv,oh) 04/04/25 0900 graduated compression stockings (nv,ct) VTE Prophylaxis: VTE prophylaxis appropriate Disposition: To be determined Plan of care discussed with Provider, RN, Patient Plan communicated to: Family Signature: Pascale Swartz MD Internal Medicine PGY-1 05/24/2025 5:39 AM Patient seen and discussed with Beulah Norton. Addendum to follow. [facility] STAFF PHYSICIAN NOTE OF PERSONAL INVOLVEMENT IN [...] Staff, Dept. Of Hospital Medicine PAGER - [phone] NURSING PROG Observed: 05/23/2025 9:48 PM Status: COMPLETED Source: [facility] ID: [id number] Author: TONY MOSQUEDA RN Service: Nursing Author [...] Observed: 05/23/2025 4:51 PM Status: COMPLETED Source: [facility] HNO ID: [id number] Author: SHEA MCKENNA MD Service: ? Author Type: Anesthesiologist Type: Anesthesia Postprocedure Evaluation Filed: 05/23/2025 17:22 Note Text: POST ANESTHESIA EVALUATION NOTE : 1980 Procedure Summary Date: 05/23/25 Room / Location: [address] LAB Anesthesia Start: 1315 Anesthesia Stop: [...] May 23, 2025 TIME: 4:51 PM CSN: [id number] ECG COMPLETE Observed: 05/23/2025 4:35 PM Status: F Source: [facility] Ventricular Rate : 70 BPM P-R Interval : 424 ms QRS Duration : 64 ms Q-T Interval : 422 ms QTC Calculation(Bazett) : 455 ms Calculated R [place] : 145 degrees Calculated T [place] : 82 degrees NORMAL SINUS RHYTHM FIRST DEGREE AV BLOCK LOW VOLTAGE QRS, CONSIDER PULMONARY DISEASE, PERICARDIAL EFFUSION, OR NORMAL VARIANT ABNORMAL ECG Confirmed by fellow JEAN-PAUL ARCHER MD ([id number]) on 06/08/2025 5:17:17 AM Confirmed by NICKIE THOMAS MD ([id number]) on 06/08/2025 11:04:18 AM NAME : ELIA WESTON PID : [id number] : 1980 Gender : Male Race : ORD : [id number] Procedure Date : May 23 2025 16:35:19 Edit Date : Jun 08 2025 11:04:25 Diagnosis: NORMAL SINUS RHYTHM FIRST DEGREE AV BLOCK LOW VOLTAGE QRS, CONSIDER PULMONARY DISEASE, PERICARDIAL EFFUSION, OR NORMAL VARIANT ABNORMAL ECG Confirmed by fellow JEAN-PAUL ARCHER MD ([id number]) on 06/08/2025 5:17:17 AM Confirmed by NICKIE THOMAS MD ([id number]) on 06/08/2025 11:04:18 AM Test Reason : Arrhythmia Location : 340 : [id number] Overread By : NICKIE THOMAS MD Edited By : NICKIE THOMAS MD Referred By : , Acquired by : erlin rn, BRIEF OP NOT Observed: 05/23/2025 4:04 PM Status: COMPLETED Source: [facility] ID: [id number] Author: ELVI MASSEY MD Service: Cardiovascular Medicine [...] consult team Full report to follow in [facility] (Under Chart Review -> Cardiac) Elvi Massey MD, MS Cardiac Electrophysiology Fellow, PGY-7 Heart, Vascular, and Thoracic [facility] May 23, 2025 CASE MANAGEM Observed: 05/23/2025 2:08 PM Status: COMPLETED Source: [facility] HNO ID: [id number] Author: NHUNG KINCAID LISW Service: Care Management Author Type: Water Supply Technician Type: Care Mgt Progress Note Filed: 05/23/2025 14:14 Note Text: CARE MANAGEMENT PROGRESS NOTE SERVICE DATE: 05/23/2025 SERVICE TIME: 2:08 PM LOS: 32 days Admission Date: 04/20/2025 Post-Acute Discharge Planning Patient Goal(s): General wellness, Be able to go home Discharge Planning Participant(s): Patient Patient/Family Comments: Anticipated # of Days Until Discharge: 3 Transport at Discharge: Transportation Arrangements: Ultrasound Spec Name: Pt reports he drove himself here [...] Observed: 05/23/2025 2:00 PM Status: COMPLETED Source: [facility] HNO ID: [id number] Author: NOAH KAPLAN APRN.PICTURE FRAME MAKER Service: ? Author Type: Nurse Latex Foam Worker Type: Anesthesia Procedure Notes Filed: 05/23/2025 14:00 Note Text: ANESTHESIOLOGY PROCEDURE NOTE Airway General Information Procedure Start Time/Medication Administration: 05/23/2025 1:40 PM Procedure End Time: 05/23/2025 2:00 PM Patient location during procedure: OR Timeout Performed Pre-procedure: timeout performed Consent Obtained: Yes Patient identity confirmed: arm band and patient Staffing PICTURE FRAME MAKER: Noah Kaplan APRN.PICTURE FRAME MAKER Performed by: PICTURE FRAME MAKER Indications and Patient Condition Indications for airway [...] May 23, 2025 TIME: 2:00 PM CSN: [id number] PT ED Observed: 05/23/2025 1:00 PM Status: COMPLETED Source: [facility] HNO ID: [id number] Author: ORLY MARTINEZ RN Service: Nursing Author [...] discussed with Physician, nurse practitioner or Physician phlebotomist medical lab assistant upon discharge Instructions for transmitting EKG to Monitoring Center 3 month follow up instructions Contact number for information and questions Patient Evaluation: Verbalizes Understanding Follow Up Plan: Follow up as directed by MD. Supplemental Material Given: None Instructed By Orly Martinez RN. In Department of DCG066. ANES PRE-OP Observed: 05/23/2025 12:50 PM Status: COMPLETED Source: [facility] HNO ID: [id number] Author: BRYAN JOHNS MD Service: ? 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[facility]) (+) Myocardial infarction ([facility]) (+) PAF (paroxysmal atrial fibrillation) ([facility]) (+) Paroxysmal atrial flutter ([facility]) (+) Pulmonary embolism ([facility]) (+) Second degree AV block, Mobitz type I (+) Stenosis of other vascular prosthetic devices, implants and grafts, initial encounter (+) 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 of procedure (+) Unspecified atherosclerosis of [place] arteries of extremities, right leg (+) Venous collateral circulation ENDO (+) Acquired hypothyroidism (+) Hypothyroidism GI (+) Gastroesophageal reflux disease without esophagitis -RENAL (+) Anemia due to chronic kidney disease, on chronic dialysis ([facility]) (+) Anemia of renal disease (+) Dialysis patient (+) ESRD (end stage renal disease) ([facility]) (+) ESRD (end stage renal disease) on dialysis ([facility]) (+) ESRD on hemodialysis ([facility]) (+) Renal osteodystrophy PULMONARY (+) YEIMY (obstructive [...] and consent discussed: yes. Patient / Responsible Libertarian agrees to proceed: yes Patient / Surrogate [...] May 23, 2025 TIME: 1:44 PM CSN: [id number] THERAPY NT Observed: 05/23/2025 11:22 AM Status: COMPLETED Source: [facility] ID: [id number] Author: LUCILLE MURPHY PT Service: Physical Therapy Author Type: Associate Director Type: Therapy (PT/OT/Speech/Resp) Filed: 05/23/2025 12:06 Note Text: Attestation signed by Lucille Murphy PT at 05/23/2025 12:06 PM I reviewed and agree with the documentation corresponding to this therapy visit. SIGNATURE: Lucille Murphy PT DATE: May 23, 2025 TIME: 12:06 PM PHYSICAL THERAPY MISSED VISIT SERVICE DATE: 05/23/2025 SERVICE TIME: 1122 ROOM: [place] [address] (Q6-1 Hemodialysis) Patient not seen due to Test / Procedure, HD at this time. Per [facility]: Plan for pacemaker this afternoon SIGNATURE: Artie Chi PTA PATIENT NAME: Elia Weston DATE: May 23, 2025 TIME: 11:23 AM CONSULT PROG Observed: 05/23/2025 11:11 AM Status: COMPLETED Source: [facility] ID: [id number] Author: GIBSON ABBOTT APRN.MIKI Service: Nephrology Author [...] 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, PR, PE, CVA, CHB, colitis, Adjustment Disorder With Depressed Mood, MSSA bacteremia, Proximal Colon Ulcer, Hypothyroidism, Intra-Abdominal Varices, , S/P MAZE procedure, skin ulcers, GERD, YEIMY, DVTs [facility] with chief complaint of [...] of first HD: 2005 -Current HD unit: [facility] -Loading Dock Hand: Dr Melendez -Schedule: Fri-Fri-Fri -Time: 4.5 hrs [...] meds eGFR<10 Outpatient dialysis disposition plan: contact [phone] and ask to speak with the help desk consultant as needed for assistance with post-discharge arrangements. Please DO NOT schedule patient for a nephrology follow up appointment. Kidney care will be provided by the primary member of technical staff at their dialysis unit upon hospital discharge. Disclosures: Parts of the current progress note may have been copied from a previous note. SIGNATURE: Gibson Abbott APRN.MIKI PATIENT NAME: Elia Weston DATE: May 23, 2025 TIME: 11:11 AM PAGER: [phone] FOR AFTER HOUR CONCERNS BETWEEN 5PM - 7AM CONTACT ON-CALL NEPHROLOGY FELLOW MIRIAM NICHOLS BLD AUTO Collected: 7:25 AM Status: F Source: [facility] Order Comment: Specimen Type : BLOOD SPECIMEN Ordering Facility: [facility] Address: [address] [place] [address] TYPE CODE TESTS RESULT OUT OF RANGE REFERENCE UNITS LAB 6690-2(INC) WBC # Bld Auto 4.56 3.70-11.00 k/uL LAB 789-8(INC) RBC # Bld Auto 2.74 Low 4.20-6.00 m/uL LAB 718-7(INC) Hgb Bld-mCnc 7.9 Low 13.0-17.0 g/dL LAB 4544-3([facility]) Hct VFr Bld Auto 26.1 Low 39.0-51.0 % LAB 787-2(INC) MCV RBC Auto 95.3 80.0-100.0 fL LAB 785-6([facility]) MCH RBC Qn Auto 28.8 26.0-34.0 pg LAB 786-4([facility]) MCHC RBC Auto-mCnc 30.3 Low 30.5-36.0 g/dL LAB 78814-5([facility]) RDW RBC-Rto 18.6 High 11.5-15.0 % LAB 777-3(INC) Platelet # Bld Auto 202 150-400 k/uL LAB 25193-1([facility]) PMV Bld Auto 10.9 9.0-12.7 fL LAB 771-6([facility]) nRBC # Bld Auto <0.01 <0.01 k/uL Performed By: #### 2731-8, 8410-2 #### [facility] CLIA [id number] [address] [place] [address] [place] PTH-INTACT SERPL-MCNC Collected: 05/23/2025 7:25 AM Status: F Source: [facility] Order Comment: Specimen Type : BLOOD SPECIMEN Ordering Facility: [facility] Address: [address] [place] [address] TYPE CODE TESTS RESULT OUT OF RANGE REFERENCE UNITS LAB 2731-8([facility]) PTH-Intact SerPl-mCnc 181 High 15-65 pg/mL Performed By: #### 2731-8, 5 8410-2 #### [facility] CLIA [id number] [address] [place] [address] [place] [address] [place] COMP METAB 2000 PNL SERPL Collected: 7:25 AM Status: F Source: [facility] Order Comment: Specimen Type : BLOOD SPECIMEN Ordering Facility: [facility] Address: [address] [place] [address] TYPE CODE TESTS RESULT OUT OF RANGE REFERENCE UNITS LAB 2885-2(LOINC) Prot SerPl-mCnc 7.1 6.3-8.0 g/dL LAB 1751-7(LOINC) Albumin SerPl-mCnc 3.5 Low 3.9-4.9 g/dL LAB 70939-8(LOINC) Calcium SerPl-mCnc 7.2 Low 8.5-10.2 mg/dL LAB 1975-2(LOINC) Bilirub SerPl-mCnc 0.2 0.2-1.3 mg/dL LAB 6768-6(LOINC) ALP SerPl-cCnc 148 High 38-113 U/L LAB 1920-8(LOINC) AST SerPl-cCnc 18 14-40 U/L LAB 1742-6(LOINC) ALT SerPl-cCnc 10 10-54 U/L LAB 2345-7(LOINC) Glucose SerPl-mCnc 84 74-99 mg/dL Result Comment: The [place] Diabetes Association (ADA) provides guidance for cutoff [...] Standards of Medical Care in Diabetes 2016, [place] Diabetes Association. Diabetes Care. 2016.39(Suppl 1). LAB 3094-0(LOINC) BUN SerPl-mCnc 25 High 9-24 mg/dL LAB 2160-0(LOINC) Creat SerPl-mCnc 7.96 High 0.73-1.22 mg/dL Result Comment: Result reche cked. LAB 2951-2(LOINC) Sodium SerPl-sCnc 140 136-144 mmol/L LAB 2823-3(LOINC) Potassium SerPl-sCnc 5.7 High 3.7-5.1 mmol/L LAB 2075-0(LOINC) Chloride SerPl-sCnc 98 98-107 mmol/L LAB 2027-9(LOINC) CO2 SerPl-sCnc 25 22-30 mmol/L LAB 59883-8(LOINC) Anion Gap SerPl-sCnc 17 High 8-15 mmol/L LAB 12095-1(LOINC) eGFRcr SerPlBld CKD-EPI 2020 8 Low >=60 [...] Performed By: #### 2777-1, 2 8 #### [facility] CLIA [id number] [address] [place] [address] [place] PHOSPHATE SERPL-MCNC Collected: 05/23/2025 7:25 AM S tatus: F Source: [facility] Order Comment: Specimen Type : BLOOD SPECIMEN Ordering Facility: [facility] Address: [address] [place] [address] TYPE CODE TESTS RESULT OUT OF RANGE REFERENCE UNITS LAB 2777-1([facility]) Phosphate SerPl-mCnc 4.3 2.7-4.8 mg/dL Performed By: #### 2777-1, 2 4322-8 #### [facility] CLIA [id number] [address] [place] [address] [place] PT PNL PPP Collected: 05/23/2025 7:25 AM Status: F Source: [facility] Order Comment: Specimen Type : BLOOD SPECIMEN Ordering Facility: [facility] Address: [address] [place] [address] TYPE CODE TESTS RESULT OUT OF RANGE REFERENCE UNITS LAB 5902-2(LOINC) Prothrombin time 17.1 High 9.7-13.0 sec LAB 6301-6(LOINC) INR PPP 1.6 High 0.9-1.3 Result Comment: Vitamin K An tagonist (VKA) Therapeutic Range: INR 2 to 3 (Target INR of 2.5) Note: For patients treated with VKA drugs, such as warfarin, the [place] College of Chest Physicians 2012 Guideline recommends [...] Chest 2012, 141:7S-47S Kevin RA, et al. [facility] 2017, 70: 252-289 Performed By: #### 10766-6 # ### [facility] CLIA [id number] [address] [place], [place] [address] [place] PROGRESS Observed: 05/23/2025 5:45 AM Status: COMPLETED Source: [facility] HNO ID: [id number] Author: BEULAH RAMEY MD Service: General Internal Medicine Author Type: Physician Type: Progress Notes Filed: 05/23/2025 16:08 Note Text: DEPARTMENT OF HOSPITAL MEDICINE PROGRESS NOTE SERVICE DATE: 05/23/2025 SERVICE TIME: 1:21 PM Hospital Medicine/Primary Attending: Beulah Ramey MD NIGHT AND WEEKEND COVERAGE: [facility] COVERAGE: Nights: [phone], please page Team Jeffrey Haq; overnight/admitting pager [phone] Subjective Chief Complaint: Pain and chronic chest [...] and Airways Line Duration Peripheral 04/26/25 2100 [facility] Right Forearm 20 Gauge 26 days Dialysis / Apheresis Double Lumen 04/29/25 1005 [facility] Tunneled Right Internal Jugular 24 days DATA: [...] management of bleeding, and on transfer to [facility], patient began to have significant bleeding from [...] - Follows with Dr. Moreno (cardiology in [place]) for mgmt of Coumadin, will need follow-up [...] #Chronic Hypotension #Secondary Hyperparathyroidism - iHD at [facility] [place] through R. Tunneled HD catheter MWF - Last dialysis session Friday04/18/2025; missed Fri session because he presented to [facility] ED - anuric at baseline per [...] -- 04/10/25 1015 activity - mobilize patient (nv,ct) 04/04/25 0900 graduated compression stockings ([place]) VTE Prophylaxis: VTE prophylaxis appropriate Disposition: To be determined Plan of care discussed with Provider, RN, Patient Plan communicated to: Family Signature: Pascale Swartz MD Internal Medicine PGY-1 05/23/2025 2:03 PM Patient seen and discussed with Beulah Norton. Addendum to follow. [facility] STAFF PHYSICIAN NOTE OF PERSONAL INVOLVEMENT IN [...] Staff, Dept. Of Hospital Medicine PAGER - [phone] ALLIED HEALTH Observed: 05/22/2025 8:00 PM Status: COMPLETED Source: [facility]NO ID: [id number] Author: MOHAMUD MARLOW Chaplain Service: Spiritual Care Author Type: Door Assembler Type: Allied Health Filed: 05/22/2025 21:31 Note Text: SPIRITUAL CARE ASSESSMENT SERVICE DATE: 05/22/2025 SERVICE TIME: 8p Visit with: Patient Length of visit (minutes): 20 Presybeterian / Spirituality: Buddhist Reason: Referral from: Patient (self-referral) Purpose of Referral (if stated): pt asked to see a clothes separator ASSESSMENT Emotional Disposition: Determined, Grateful, Hopeful, and [...] resilience, and Spiritual resources utilized PLAN Unit clothes separator available for f/u as requested/needed SIGNATURE: Chaplain Ayaz PATIENT NAME: Elia Weston DATE: May 22, 2025 TIME: 9:25 PM PAGER/CONTACT #: [phone] CONSULT PROG Observed: 05/22/2025 2:06 PM Status: COMPLETED Source: [facility] HN ID: [id number] Author: KENTRELL BHARDWAJ MD Service: Electrophysiology Author Type: Fellow Type: Consult Progress Note Filed: 05/22/2025 14:07 Note Text: [facility] ELECTROPHYSIOLOGY CONSULT PROGRESS NOTE Elia Weston [id number] PRIMARY SERVICE: Internal Medicine CONSULTING SERVICE: Electrophysiology [...] - 14 Apr: Awaiting YONATHAN. ECG with TX continuing to prolong (~450 ms). - 15 Apr: Unable to undergo YONATHAN with conscious sedation (required a lot of sedation to be comfortable resulting in hypotension). - 16 Apr: ECG demonstrates TX ~430 ms - 18 Apr: Discussed EP plan in detail (YONATHAN to assess for IE, if no IE leadless PPM; if IE, multidisciplinary treatment including possible OHS). - 20 Apr: YONATHAN formal read without evidence of endocarditis - 21 Apr: Atropine 0.5mg administered bedside: pre-atropine TX 420ms at HR 93, post-atropine TX 420ms at HR 113 - Apr: discussed procedure with patient in detail Recommendations: Notable TX prolongation this admission (~420 ms) as compared to prior (~220 ms in Sep 2024). Initially suspicious for aortic root infection however YONATHAN reassuring. Of note, TX interval did not accommodate with atropineBCX x2 [...] Cardiac Electrophysiology Fellow PGY-7 Heart,Vascular, and Thoracic [facility] PROGRESS Observed: 05/22/2025 11:16 AM Status: COMPLETED Source: [facility] HN ID: [id number] Author: BEULAH RAMEY MD Service: General Internal Medicine Author Type: Physician Type: Progress Notes Filed: 05/22/2025 11:25 Note Text: DEPARTMENT OF HOSPITAL MEDICINE PROGRESS NOTE SERVICE DATE: 05/22/2025 SERVICE TIME: 11:17 AM Hospital Medicine/Primary Attending: Beulah Ramey MD NIGHT AND WEEKEND COVERAGE: [facility] COVERAGE: Nights: [phone], please page Team Jeffrey Haq; overnight/admitting pager [phone] Subjective Chief Complaint: Pain and chronic chest [...] and Airways Line Duration Peripheral 04/26/25 2100 [facility] Right Forearm 20 Gauge 25 days Dialysis / Apheresis Double Lumen 04/29/25 1005 [facility] Tunneled Right Internal Jugular 23 days DATA: [...] Secondary hyperparathyroidism, renal (HCC) ESRD on hemodialysis ([facility]) History of non-ST elevation myocardial infarction (NSTEMI) [...] management of bleeding, and on transfer to [facility], patient began to have significant bleeding from [...] - Follows with Dr. Moreno (cardiology in [place]) for mgmt of Coumadin, will need follow-up [...] #Chronic Hypotension #Secondary Hyperparathyroidism - iHD at [facility] through R. Tunneled HD catheter MWF [...] -- 04/10/25 1015 activity - mobilize patient (nv,ct) 04/04/25 0900 graduated compression stockings ([place], [place]) VTE Prophylaxis: VTE prophylaxis appropriate Disposition: To be determined Plan of care discussed with Provider, RN, Patient Plan communicated to: Family Vicki Stein MA, MD PGY-3 Internal Medicine May 22, 2025 Pager #:[phone] [facility] STAFF PHYSICIAN NOTE OF PERSONAL INVOLVEMENT IN [...] Staff, Dept. Of Hospital Medicine PAGER - [phone] COMP METAB 2000 PNL SERPL Collected: 9:05 AM Status: F Source: [facility] Order Comment: Specimen Type : BLOOD SPECIMEN Ordering Facility: [facility] Address: [address] [place] [id number] TYPE CODE TESTS RESULT OUT OF RANGE REFERENCE UNITS LAB 2885-2(LOINC) Prot SerPl-mCnc 6.9 6.3-8.0 g/dL LAB 1751-7(LOINC) Albumin SerPl-mCnc 3.4 Low 3.9-4.9 g/dL LAB 25100-3(LOINC) Calcium SerPl-mCnc 7.8 Low 8.5-10.2 mg/dL LAB 1975-2(LOINC) Bilirub SerPl-mCnc 0.3 0.2-1.3 mg/dL LAB 6768-6(LOINC) ALP SerPl-cCnc 144 High 38-113 U/L LAB 1920-8(LOINC) AST SerPl-cCnc 20 14-40 U/L LAB 1742-6(LOINC) ALT SerPl-cCnc 10 10-54 U/L LAB 2345-7(INC) Glucose SerPl-mCnc 76 74-99 mg/dL Result Comment: The [place] Diabetes Association (ADA) provides guidance for cutoff [...] Standards of Medical Care in Diabetes 2016, [place] Diabetes Association. Diabetes Care. 2016.39(Suppl 1). LAB 3094-0(LOINC) BUN SerPl-mCnc 17 9-24 mg/dL LAB 2160-0(LOINC) Creat SerPl-mCnc 6.72 High 0.73-1.22 mg/dL LAB 2951-2(INC) Sodium SerPl-sCnc 137 136-144 mmol/L LAB 2823-3(LOINC) Potassium SerPl-sCnc 5.2 High 3.7-5.1 mmol/L LAB 2075-0(LOINC) Chloride SerPl-sCnc 99 98-107 mmol/L LAB 2027-9(LOINC) CO2 SerPl-sCnc 23 22-30 mmol/L LAB 62422-7(LOINC) Anion Gap SerPl-sCnc 15 8-15 mmol/L LAB 11631-3(LOINC) eGFRcr SerPlBld CKD-EPI 2020 10 Low >=60 [...] accurately reflect actual GFR. Performed By: #### 80948-7 # ### [facility] CLIA [id number] [address] [place] [address] [place] CBC PNL BLD AUTO Collected: 5 9:05 AM Status: F Source: [facility] Order Comment: Specimen Type : BLOOD SPECIMEN Ordering Facility: [facility] Address: [address] [place] [address] TYPE CODE TESTS RESULT OUT OF RANGE [...] RBC Auto-mCnc 30.1 Low 30.5-36.0 g/dL LAB 92101-9(LOINC) RDW RBC-Rto 18.8 High 11.5-15.0 % LAB 777-3(LOINC) Platelet # Bld Auto 189 150-400 k/uL LAB 34261-4(LOINC) PMV Bld Auto 10.4 9.0-12.7 fL LAB 771-6(LOINC) nRBC # Bld Auto <0.01 <0.01 k/uL Performed By: #### 46421-2 # ### [facility] CLIA [id number] [address] [place], [place] [address] [place] PT PNL PPP Collected: 05/22/2025 9:05 AM Status: F Source: [facility] Order Comment: Specimen Type : BLOOD SPECIMEN Ordering Facility: [facility] Address: [address] [place] [address] TYPE CODE TESTS RESULT OUT OF RANGE REFERENCE UNITS LAB 5902-2(LOINC) Prothrombin time 16.6 High 9.7-13.0 sec LAB 6301-6(LOINC) INR PPP 1.6 High 0.9-1.3 Result Comment: Vitamin K An tagonist (VKA) Therapeutic Range: INR 2 to 3 (Target INR of 2.5) Note: For patients treated with VKA drugs, such as warfarin, the [place] College of Chest Physicians 2012 Guideline recommends [...] Chest 2012, 141:7S-47S Kevin RA, et al. [facility] 2017, 70: 252-289 Performed By: #### 80016-4 # ### [facility] CLIA [id number] [address] [place], [place] [address] [place] TYPE + SCREEN Collected: 05/22/2025 9:05 AM Status: F Source: [facility] Order Comment: Specimen Type : BLOOD SPECIMEN Ordering Facility: [facility] Address: [address] [place] [address] TYPE CODE TESTS RESULT OUT OF RANGE REFERENCE UNITS LAB [id number] ABO B LAB [id number] RH Positive LAB [id number] ANTIBODY SCREEN Negative LAB [id number] TYPE AND SCREEN EXPIRATION 05/25/2025 23:59 Performed By: #### TSCR #### CC MAIN BLOOD BANK [facility] [id number] [facility] [facility] [address] STATES OF [facility] PROGRESS Observed: 05/22/2025 6:58 AM Status: COMPLETED Source: [facility] HNO ID: [id number] Author: CED GUZMAN, RN Service: Nursing Author [...] Observed: 05/21/2025 1:09 PM Status: COMPLETED Source: [facility] HNO ID: [id number] Author: KENTRELL BHARDWAJ MD Service: Electrophysiology Author Type: Fellow Type: Consult Progress Note Filed: 05/21/2025 13:13 Note Text: [facility] ELECTROPHYSIOLOGY CONSULT PROGRESS NOTE Elia Weston [id number] PRIMARY SERVICE: Internal Medicine CONSULTING SERVICE: Electrophysiology [...] - 14 Apr: Awaiting YONATHAN. ECG with TX continuing to prolong (~450 ms). - 15 Apr: Unable to undergo YONATHAN with conscious sedation (required a lot of sedation to be comfortable resulting in hypotension). - 16 Apr: ECG demonstrates TX ~430 ms - 18 Aug: Discussed EP plan in detail (YONATHAN to assess for IE, if no IE leadless PPM; if IE, multidisciplinary treatment including possible OHS). - 20 Apr: YONATHAN formal read without evidence of endocarditis - 21 Apr: Atropine 0.5mg administered bedside: pre-atropine TX 420ms at HR 93, post-atropine TX 420ms at HR 113 Recommendations: Notable TX prolongation this admission (~420 ms) as compared to prior (~220 ms in Sep 2024). Initially suspicious for aortic root infection however YONATHAN reassuring. Of note, TX interval did not accommodate with atropineBCX x2 [...] Please obtain 12-lead ECG daily to reassess TX interval - The EP Consult service shall [...] Cardiac Electrophysiology Fellow PGY-7 Heart,Vascular, and Thoracic [facility] PROGRESS Observed: 05/21/2025 6:30 AM Status: COMPLETED Source: [facility] HN ID: [id number] Author: BEULAH RAMEY MD Service: General Internal Medicine Author Type: Physician Type: Progress Notes Filed: 05/21/2025 11:24 Note Text: DEPARTMENT OF HOSPITAL MEDICINE PROGRESS NOTE SERVICE DATE: 05/21/2025 SERVICE TIME: 6:30 AM Hospital Medicine/Primary Attending: Luis Cui MD NIGHT AND WEEKEND COVERAGE: [facility] COVERAGE: Nights: [phone], please page Team Jeffrey Haq; overnight/admitting pager [phone] Subjective Chief Complaint: Pain and chronic chest [...] and Airways Line Duration Peripheral 04/26/25 2100 [facility] Right Forearm 20 Gauge 24 days Dialysis / Apheresis Double Lumen 04/29/25 1005 [facility] Tunneled Right Internal Jugular 21 days DATA: [...] Secondary hyperparathyroidism, renal (HCC) ESRD on hemodialysis ([facility]) History of non-ST elevation myocardial infarction (NSTEMI) [...] management of bleeding, and on transfer to [facility], patient began to have significant bleeding from [...] - Follows with Dr. Moreno (cardiology in [place]) for mgmt of Coumadin, will need follow-up [...] #Chronic Hypotension #Secondary Hyperparathyroidism - iHD at [facility] through R. Tunneled HD catheter MWF [...] -- 04/10/25 1015 activity - mobilize patient (nv,ct) 04/04/25 0900 graduated compression stockings ([place], [place]) VTE Prophylaxis: VTE prophylaxis appropriate Disposition: To be determined Plan of care discussed with Provider, RN, Patient Plan communicated to: Family Dae Miner MD PGY-1 [place], [phone] My Pager [facility] STAFF PHYSICIAN NOTE OF PERSONAL INVOLVEMENT IN [...] Staff, Dept. Of Hospital Medicine PAGER - [phone] PT PNL PPP Collected: 05/21/2025 4:14 AM Status: F Source: [facility] Order Comment: Specimen Type : BLOOD SPECIMEN Ordering Facility: [facility] Address: [address] [place] [address] TYPE CODE TESTS RESULT OUT OF RANGE REFERENCE UNITS LAB 5902-2(LOINC) Prothrombin time 17.9 High 9.7-13.0 sec LAB 6301-6(LOINC) INR PPP 1.7 High 0.9-1.3 Result Comment: Vitamin K An tagonist (VKA) Therapeutic Range: INR 2 to 3 (Target INR of 2.5) Note: For patients treated with VKA drugs, such as warfarin, the [place] [employer] of [employer]icians 2012 Guideline recommends [...] Chest 2012, 141:7S-47S Kevin RA, et al. [facility] 2017, 70: 252-289 Performed By: #### 04216-9 # ### [facility] CLIA [id number] [address] [place] [address] [place] CBC PNL BLD AUTO Collected: 5 4:14 AM Status: F Source: [facility] Order Comment: Specimen Type : BLOOD SPECIMEN Ordering Facility: [facility] Address: [address] [place] [address] TYPE CODE TESTS RESULT OUT OF RANGE [...] RBC Qn Auto 28.5 26.0-34.0 pg LAB 786-4([facility]) MCHC RBC Auto-mCnc 30.6 30.5-36.0 g/dL LAB 85851-7([facility]) RDW RBC-Rto 19.2 High 11.5-15.0 % LAB 777-3([facility]) Platelet # Bld Auto 190 150-400 k/uL LAB 45173-6([facility]) PMV Bld Auto 10.3 9.0-12.7 fL LAB 771-6([facility]) nRBC # Bld Auto <0.01 <0.01 k/uL Performed By: #### 16540-6 # ### [facility] CLIA [id number] [address] [place] [address] [place] COMP METAB 2000 PNL SERPL Collected: 4:14 AM Status: F Source: [facility] Order Comment: Specimen Type : BLOOD SPECIMEN Ordering Facility: [facility] Address: [address] [place] [address] TYPE CODE TESTS RESULT OUT OF RANGE REFERENCE UNITS LAB 2885-2([facility]) Prot SerPl-mCnc 7.6 6.3-8.0 g/dL LAB 1751-7([facility]) Albumin SerPl-mCnc 3.7 Low 3.9-4.9 g/dL LAB 28561-8([facility]) Calcium SerPl-mCnc 8.1 Low 8.5-10.2 mg/dL LAB 1975-2([facility]) Bilirub SerPl-mCnc 0.3 0.2-1.3 mg/dL LAB 6768-6([facility]) ALP SerPl-cCnc 157 High 38-113 U/L LAB 1920-8(INC) AST SerPl-cCnc 23 14-40 U/L LAB 1742-6(LOINC) ALT SerPl-cCnc 11 10-54 U/L LAB 2345-7([facility]) Glucose SerPl-mCnc 92 74-99 mg/dL Result Comment: The [place] Diabetes Association (ADA) provides guidance for cutoff [...] Standards of Medical Care in Diabetes 2016, [place] Diabetes Association. Diabetes Care. 2016.39(Suppl 1). LAB 3094-0(LOINC) BUN SerPl-mCnc 10 9-24 mg/dL LAB 2160-0(LOINC) Creat SerPl-mCnc 4.64 High 0.73-1.22 mg/dL LAB 2951-2(LOINC) Sodium SerPl-sCnc 137 136-144 mmol/L LAB 2823-3(LOINC) Potassium SerPl-sCnc 4.6 3.7-5.1 mmol/L LAB 2075-0(LOINC) Chloride SerPl-sCnc 97 Low 98-107 mmol/L LAB 2027-9(LOINC) CO2 SerPl-sCnc 27 22-30 mmol/L LAB 15420-5(LOINC) Anion Gap SerPl-sCnc 13 8-15 mmol/L LAB 24579-6(LOINC) eGFRcr SerPlBld CKD-EPI 2020 15 Low >=60 [...] accurately reflect actual GFR. Performed By: #### 26058-7 # ### [facility] CLIA [id number] [address] [place] [address] [place] THERAPY NT Observed: 05/20/2025 3:59 PM Status: COMPLETED Source: [facility] HNO ID: [id number] Author: LUCILLE MURPHY PT Service: Physical Therapy Author Type: Associate Director Type: Therapy (PT/OT/Speech/Resp) Filed: 05/23/2025 07:23 Note Text: Attestation signed by Lucille Murphy, PT at 05/23/2025 7:23 AM I reviewed and agree with the documentation corresponding to this therapy visit. 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 Has been sleeping in recliner 2/2 to pain. (+) driving SUBJECTIVE THERAPY DIAGNOSIS Reduced mobility-other, Muscle Weakness (generalized), General symptoms and signs-other TREATMENT INTERVENTIONS Therapeutic Activity (92661) Timed Code Treatment (minutes): 13 Skilled Treatment [...] Observed: 04/30 2:28 PM Status: F Source: [facility] Non-Invasive Vascular [facility] [...] Interpreting physician: Rm Lay DO Final CC [employer] : [id number] See Link below for Image THERAPY NT Observed: 05/20/2025 1:43 PM Status: COMPLETED Source: [facility] HNO ID: [id number] Author: LUCILLE MURPHY PT Service: Physical Therapy Author Type: Associate Director Type: Therapy (PT/OT/Speech/Resp) Filed: 05/20/2025 14:12 Note Text: Attestation signed by Lucille Murphy PT at 05/20/2025 2:12 PM I reviewed and agree with the documentation corresponding to this therapy visit. SIGNATURE: Lucille Murphy PT DATE: May 20, 2025 TIME: 2:12 PM PHYSICAL THERAPY MISSED VISIT SERVICE DATE: 05/20/2025 SERVICE TIME: 1336 ROOM: [place] [address] Patient not seen due to Declined to Participate, just returned from . SIGNATURE: Artie Chi PTA PATIENT NAME: lEia Weston DATE: May 20, 2025 TIME: 1:43 PM TYPE + SCREEN Collected: 05/20/2025 1:21 PM Status: F Source: [facility] Order Comment: Specimen Type : BLOOD SPECIMEN Ordering Facility: [facility] Address: [address] [place] [address] TYPE CODE TESTS RESULT OUT OF RANGE REFERENCE UNITS LAB [id number] ABO B LAB [id number] RH Positive LAB [id number] ANTIBODY SCREEN Negative LAB [id number] TYPE AND SCREEN EXPIRATION 05/23/2025 23:59 Performed By: #### TSCR #### CC MAIN BLOOD BANK CLIA [id number] [address] [place] [address] CASE MANAGEM Observed: 05/20/2025 12:05 PM Status: COMPLETED Source: [facility] HNO ID: [id number] Author: NUHNG KINCAID LISW Service: Care Management Author Type: Water Supply Technician Type: Care Mgt Progress Note Filed: 05/20/2025 [...] Observed: 05/20/2025 11:42 AM Status: COMPLETED Source: [facility] HNO ID: [id number] Author: KIMBERLY LYNN APRN.CNP Service: Wound Care [...] again at a future date. Kimberly Lynn APRN.INDUSTRIAL TECHNOLOGIST CBC PNL BLD AUTO Collected: 10:04 AM Status: F Source: [facility] Order Comment: Specimen Type : BLOOD SPECIMEN Ordering Facility: [facility] Address: [address] [place] [address] TYPE CODE TESTS RESULT OUT OF RANGE [...] RBC Auto-mCnc 30.1 Low 30.5-36.0 g/dL LAB 31109-9(LOINC) RDW RBC-Rto 19.2 High 11.5-15.0 % LAB 777-3(LOINC) Platelet # Bld Auto 170 150-400 k/uL LAB 22720-9(LOINC) PMV Bld Auto 10.0 9.0-12.7 fL LAB 771-6(LOINC) nRBC # Bld Auto <0.01 <0.01 k/uL Performed By: #### 11053-4 # ### [facility] CLIA [id number] [address] [place] [address] [place] CONSULT PROG Observed: 05/20/2025 9:29 AM Status: COMPLETED Source: [facility] HNO ID: [id number] Author: VICKIE DURHAM APRN.MIKI Service: Nephrology Author Type: Nurse Practitioner Type: Consult Progress Note Filed: 05/20/2025 11:20 Note Text: Department of Kidney Medicine Medical Specialties [facility] NEPHROLOGY CONSULT SERVICE PROGRESS NOTE INTERVAL [...] mg ORAL/FEEDING TUBE AT BEDTIME PRN Darbepoetin Ostio In Polysorbat 60 mcg injection (ARANESP) 60 [...] and Airways Line Duration Peripheral 04/26/25 2100 [facility] Right Forearm 20 Gauge 23 days Dialysis / Apheresis Double Lumen 04/29/25 1005 [facility] Tunneled Right Internal Jugular 20 days Labs: [...] 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, PR, PE, CVA, CHB, colitis, Adjustment Disorder With Depressed Mood, MSSA bacteremia, Proximal Colon Ulcer, Hypothyroidism, Intra-Abdominal Varices, , S/P MAZE procedure, skin ulcers, GERD, YEIMY, DVTs Patient presented to [facility] on 04/20/25 with chief complaint of [...] of first HD: 2005 -Current HD unit: [facility] -Loading Dock Hand: Dr Melendez -Schedule: Fri-Fri-Fri -Time: 4.5 hrs -EDW: 114 kg -Date of last outpatient dialysis: 04/18/25 -Access: R IJ TDC 04/29/2025 s/p S/p 04/29 venogram , 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 Please DO NOT schedule patient for a nephrology follow up appointment. Kidney care will be provided by the primary member of technical staff at their dialysis unit upon hospital discharge. Vickie Durham APRN.INDUSTRIAL TECHNOLOGIST Nephrology and Hypertension [facility] May 20, 2025 11:15 AM PAGER # [phone] Disclosures: Parts of the current progress note may have been copied from a previous note. FOR AFTER HOUR CONCERNS BETWEEN 5PM - 7AM CONTACT ON-CALL NEPHROLOGY FELLOW [id number] CBC PNL BLD AUTO Collected: 7:13 AM Status: F Source: [facility] Order Comment: Specimen Type : BLOOD SPECIMEN Ordering Facility: [facility] Address: [address] [place] [address] TYPE CODE TESTS RESULT OUT OF RANGE REFERENCE UNITS LAB 6690-2(LOINC) WBC # Bld Auto 5.66 3.70-11.00 k/uL LAB 789-8(LOINC) RBC # Bld Auto 2.21 Low 4.20-6.00 m/uL LAB 718-7(INC) Hgb Bld-mCnc 6.4 Low 13.0-17.0 g/dL LAB 4544-3(INC) Hct VFr Bld Auto 21.3 Low 39.0-51.0 % LAB 787-2(INC) MCV RBC Auto 96.4 80.0-100.0 fL LAB 785-6([facility]) MCH RBC Qn Auto 29.0 26.0-34.0 pg LAB 786-4(LOINC) MCHC RBC Auto-mCnc 30.0 Low 30.5-36.0 g/dL LAB 30979-6([facility]) RDW RBC-Rto 19.5 High 11.5-15.0 % LAB 777-3(INC) Platelet # Bld Auto 172 150-400 k/uL LAB 65027-8([facility]) PMV Bld Auto 11.2 9.0-12.7 fL LAB 771-6([facility]) nRBC # Bld Auto <0.01 <0.01 k/uL Performed By: #### 54656-5 # ### [facility] CLIA [id number] [address] [place] [address] [place] COMP METAB 2000 PNL SERPL Collected: 7:13 AM Status: F Source: [facility] Order Comment: Specimen Type : BLOOD SPECIMEN Ordering Facility: [facility] Address: [address] [place] [address] TYPE CODE TESTS RESULT OUT OF RANGE REFERENCE UNITS LAB 2885-2(INC) Prot SerPl-mCnc 6.8 6.3-8.0 g/dL LAB 1751-7(LOINC) Albumin SerPl-mCnc 3.4 Low 3.9-4.9 g/dL LAB 82944-1(LOINC) Calcium SerPl-mCnc 7.3 Low 8.5-10.2 mg/dL LAB 1975-2(LOINC) Bilirub SerPl-mCnc 0.2 0.2-1.3 mg/dL LAB 6768-6(LOINC) ALP SerPl-cCnc 138 High 38-113 U/L LAB 1920-8(LOINC) AST SerPl-cCnc 22 14-40 U/L LAB 1742-6(LOINC) ALT SerPl-cCnc 10 10-54 U/L LAB 2345-7(LOINC) Glucose SerPl-mCnc 95 74-99 mg/dL Result Comment: The [place] Diabetes Association (ADA) provides guidance for cutoff [...] Standards of Medical Care in Diabetes 2016, [place] Diabetes Association. Diabetes Care. 2016.39(Suppl 1). LAB 3094-0(LOINC) BUN SerPl-mCnc 20 9-24 mg/dL LAB 2160-0(LOINC) Creat SerPl-mCnc 6.81 High 0.73-1.22 mg/dL LAB 2951-2(LOINC) Sodium SerPl-sCnc 139 136-144 mmol/L LAB 2823-3(LOINC) Potassium SerPl-sCnc 5.4 High 3.7-5.1 mmol/L LAB 2075-0(LOINC) Chloride SerPl-sCnc 99 98-107 mmol/L LAB 2028-9(LOINC) CO2 SerPl-sCnc 25 22-30 mmol/L LAB 72801-7(LOINC) Anion Gap SerPl-sCnc 15 8-15 mmol/L LAB 67306-6(LOINC) eGFRcr SerPlBld CKD-EPI 2020 10 Low >=60 [...] accurately reflect actual GFR. Performed By: #### 04120-6 # ### [facility] CLIA [id number] [address] [place] [address] PT PNL PPP Collected: 05/20/2025 7:13 AM Status: F Source: [facility] Order Comment: Specimen Type : BLOOD SPECIMEN Ordering Facility: [facility] Address: [address] [place] [address] TYPE CODE TESTS RESULT OUT OF RANGE REFERENCE UNITS LAB 5902-2(LOINC) Prothrombin time 21.8 High 9.7-13.0 sec LAB 6301-6(LOINC) INR PPP 2.1 High 0.9-1.3 Result Comment: Vitamin K An tagonist (VKA) Therapeutic Range: INR 2 to 3 (Target INR of 2.5) Note: For patients treated with VKA drugs, such as warfarin, the [employer]icians 2012 Guideline recommends [...] JACC 2017, 70: 252-289 Performed By: #### 63726-1 # ### [facility] CLIA [id number] [address] [place] [address] OF [facility] PROGRESS Observed: 05/20/2025 6:29 AM Status: COMPLETED Source: [facility] HNO ID: [id number] Author: LUIS CUI MD Service: General Internal [...] the note. Agree with assessment and plan. Mechanical Applications Engineer:Prolonged Service: I personally spent greater than 30 minutes involved in patient care and coordination of services for this patient Luis Cui MD Authenticated by responsible provider. DEPARTMENT OF HOSPITAL MEDICINE PROGRESS NOTE SERVICE DATE: 05/20/2025 SERVICE TIME: 11:26 AM Hospital Medicine/Primary Attending: Luis Cui MD NIGHT AND WEEKEND COVERAGE: [facility] COVERAGE: Nights: [phone], please page Team Jeffrey Haq; overnight/admitting pager [phone] Subjective Chief Complaint: Pain and chronic chest [...] and Airways Line Duration Peripheral 04/26/25 2100 [facility] Right Forearm 20 Gauge 23 days Dialysis / Apheresis Double Lumen 04/29/25 1005 [facility] Tunneled Right Internal Jugular 21 days DATA: [...] Secondary hyperparathyroidism, renal (HCC) ESRD on hemodialysis ([facility]) History of non-ST elevation myocardial infarction (NSTEMI) [...] management of bleeding, and on transfer to [facility], patient began to have significant bleeding from [...] - Follows with Dr. Moreno (cardiology in [place]) for mgmt of Coumadin, will need follow-up [...] #Chronic Hypotension #Secondary Hyperparathyroidism - iHD at [facility] through R. Tunneled HD catheter MWF [...] -- 04/10/25 1015 activity - mobilize patient ([place], [place]) 04/04/25 0900 graduated compression stockings ([place] VTE Prophylaxis: VTE prophylaxis appropriate Disposition: To be determined Plan of care discussed with Provider, RN, Patient Plan communicated to: Family Dae Miner MD PGY-1 [place], [phone] My Pager CONSULT PROG Observed: 05/20/2025 6:02 AM Status: COMPLETED Source: [facility] HNO ID: [id number] Author: KENTRELL BHARDWAJ MD Service: Electrophysiology Author Type: Fellow Type: Consult Progress Note Filed: 05/20/2025 06:03 Note Text: [facility] ELECTROPHYSIOLOGY CONSULT PROGRESS NOTE Elia Weston [id number] PRIMARY SERVICE: Internal Medicine CONSULTING SERVICE: Electrophysiology [...] YONATHAN. - Apr: Awaiting YONATHAN. ECG with TX continuing to prolong (~450 ms). - Apr: Unable to undergo YONATHAN with conscious sedation (required a lot of sedation to be comfortable resulting in hypotension). - 16 Apr: ECG demonstrates TX ~430 ms - 18 Apr: Discussed EP plan in detail (YONATHAN to assess for IE, if no IE leadless PPM; if IE, multidisciplinary treatment including possible OHS). - Apr: YONATHAN formal read without evidence of endocarditis - Apr: Atropine 0.5mg administered bedside: pre-atropine TX 420ms at HR 93, post-atropine TX 420ms at HR 113 Recommendations: - Notable TX prolongation this admission (~420 ms) as compared to prior (~220 ms in Sep 2024). Initially suspicious for aortic root infection however YONATHAN reassuring - BCX x2 from admission (20 April) negative. - Of note, TX interval did not accommodate with atropine - In the absence of clear IE, will plan to proceed with leadless PPM implant before discharge - Please obtain an US of the left femoral vein for pre-procedure assessment given limited options for access - Please obtain 12-lead ECG daily to reassess TX interval - The EP Consult service shall [...] Cardiac Electrophysiology Fellow PGY-7 Heart,Vascular, and Thoracic [facility] COMP METAB 2000 PNL SERPL Collected: 6:28 PM Status: F Source: [facility] Order Comment: Specimen Type : BLOOD SPECIMEN Ordering Facility: [facility] Address: [address] [place] [address] TYPE CODE TESTS RESULT OUT OF RANGE REFERENCE UNITS LAB 2885-2(LOINC) Prot SerPl-mCnc 7.4 6.3-8.0 g/dL LAB 1751-7(LOINC) Albumin SerPl-mCnc 3.6 Low 3.9-4.9 g/dL LAB 81522-7(LOINC) Calcium SerPl-mCnc 7.6 Low 8.5-10.2 mg/dL LAB 1975-2(LOINC) Bilirub SerPl-mCnc 0.4 0.2-1.3 mg/dL LAB 6768-6(LOINC) ALP SerPl-cCnc 145 High 38-113 U/L LAB 1920-8(LOINC) AST SerPl-cCnc 27 14-40 U/L LAB 1742-6(LOINC) ALT SerPl-cCnc 11 10-54 U/L LAB 2345-7(LOINC) Glucose SerPl-mCnc 89 74-99 mg/dL Result Comment: The [place] Diabetes Association (ADA) provides guidance for cutoff [...] Standards of Medical Care in Diabetes 2016, [place] Diabetes Association. Diabetes Care. 2016.39(Suppl 1). LAB 3094-0(LOINC) BUN SerPl-mCnc 14 9-24 mg/dL LAB 2160-0(LOINC) Creat SerPl-mCnc 5.89 High 0.73-1.22 mg/dL LAB 2951-2(LOINC) Sodium SerPl-sCnc 136 136-144 mmol/L LAB 2823-3(LOINC) Potassium SerPl-sCnc 4.6 3.7-5.1 mmol/L LAB 2075-0(LOINC) Chloride SerPl-sCnc 97 Low 98-107 mmol/L LAB 2028-9(LOINC) CO2 SerPl-sCnc 25 22-30 mmol/L LAB 78917-5(LOINC) Anion Gap SerPl-sCnc 14 8-15 mmol/L LAB 86955-7(LOINC) eGFRcr SerPlBld CKD-EPI 2020 11 Low >=60 [...] accurately reflect actual GFR. Performed By: #### 92027-1 # ### [facility] CLIA [id number] [address] [place] [address] STATES OF [facility] PT PNL PPP Collected: 05/19/2025 6:27 PM Status: F Source: [facility] Order Comment: Specimen Type : BLOOD SPECIMEN Ordering Facility: [facility] Address: [address] [place] [address] TYPE CODE TESTS RESULT OUT OF RANGE REFERENCE UNITS LAB 5902-2(LOINC) Prothrombin time 22.4 High 9.7-13.0 sec LAB 6301-6(LOINC) INR PPP 2.2 High 0.9-1.3 Result Comment: Vitamin K An tagonist (VKA) Therapeutic Range: INR 2 to 3 (Target INR of 2.5) Note: For patients treated with VKA drugs, such as warfarin, the [place] College of Chest Physicians 2012 Guideline recommends [...] Chest 2012, 141:7S-47S Kevin RA, et al. [facility] 2017, 70: 252-289 Performed By: #### 48355-5 # ### [facility] CLIA [id number] [address] [place], [place] [address] [place] CBC PNL BLD AUTO Collected: 6:27 PM Status: F Source: [facility] Order Comment: Specimen Type : BLOOD SPECIMEN Ordering Facility: [facility] Address: [address] [place] [address] TYPE CODE TESTS RESULT OUT OF RANGE [...] MCHC RBC Auto-mCnc 30.6 30.5-36.0 g/dL LAB 34965-5(INC) RDW RBC-Rto 19.9 High 11.5-15.0 % LAB 777-3(INC) Platelet # Bld Auto 202 150-400 k/uL LAB 55313-6(INC) PMV Bld Auto 10.7 9.0-12.7 fL LAB 771-6(LOINC) nRBC # Bld Auto 0.02 High <0.01 k/uL Performed By: #### 66414-0 # ### [facility] CLIA [id number] [address] [place] [address] [place] PT PNL PPP Collected: 05/19/2025 5:19 PM Status: F Source: [facility] Order Comment: Specimen Type : BLOOD SPECIMEN Ordering Facility: [facility] Address: [address] [place] [address] TYPE CODE TESTS RESULT OUT OF RANGE REFERENCE UNITS LAB 5902-2(INC) Prothrombin time 23.0 High 9.7-13.0 sec LAB 6301-6(INC) INR PPP 2.2 High 0.9-1.3 Result Comment: Vitamin K An tagonist (VKA) Therapeutic Range: INR 2 to 3 (Target INR of 2.5) Note: For patients treated with VKA drugs, such as warfarin, the [place] College of Chest Physicians 2012 Guideline recommends [...] Chest 2012, 141:7S-47S Kevin RA, et al. [facility] 2017, 70: 252-289 Performed By: #### 03209-4 # ### [facility] IA [id number] [address] [place] [address] THERAPY NT Observed: 05/19/2025 3:45 PM Status: COMPLETED Source: [facility] HNO ID: [id number] Author: LUCILLE MURPHY PT Service: Physical Therapy Author Type: Associate Director Type: Therapy (PT/OT/Speech/Resp) Filed: 05/20/2025 07:19 Note Text: Attestation signed by Lucille Murphy PT at 05/20/2025 7:19 AM I reviewed and agree with the documentation corresponding to this therapy visit. 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 Has been sleeping in recliner 2/2 to pain. (+) driving SUBJECTIVE THERAPY DIAGNOSIS Reduced mobility-other, Muscle Weakness (generalized), General symptoms and signs-other TREATMENT INTERVENTIONS Gait Training (08177), Therapeutic Activity (22142) Timed Code Treatment (minutes): 23 Skilled Treatment [...] Observed: 05/19/2025 1:30 PM Status: COMPLETED Source: [facility] HN ID: [id number] Author: AB SIEGEL DO Service: Plastic Surgery [...] attending's direction Informed Consent Consent Obtained: Verbal [place] Protocol SIGN IN Sign in communication not [...] Observed: 05/19/2025 11:56 AM Status: COMPLETED Source: [facility] HNO ID: [id number] Author: MYRIAM WARD APRN.INDUSTRIAL TECHNOLOGIST Service: Plastic Surgery Author Type: Nurse Practitioner [...] DATE: May 19, 2025 TIME: 11:56 AM [phone] CONSULT PROG Observed: 05/19/2025 11:38 AM Status: COMPLETED Source: [facility] HNO ID: [id number] Author: KIMBERLY LYNN APRN.CNP Service: Wound Care [...] Observed: 05/19/2025 11:08 AM Status: COMPLETED Source: [facility] HNO ID: [id number] Author: KENTRELL BHARDWAJ MD Service: Electrophysiology Author Type: Fellow Type: Consult Progress Note Filed: 05/20/2025 06:02 Note Text: [facility] ELECTROPHYSIOLOGY CONSULT PROGRESS NOTE Elia Weston [id number] PRIMARY SERVICE: Internal Medicine CONSULTING SERVICE: Electrophysiology [...] YONATHAN. - Apr: Awaiting YONATHAN. ECG with TX continuing to prolong (~450 ms). - 15 Apr: Unable to undergo YONATHAN with conscious sedation (required a lot of sedation to be comfortable resulting in hypotension). - 16 Apr: ECG demonstrates TX ~430 ms - 18 Apr: Discussed EP plan in detail (YONATHAN to assess for IE, if no IE leadless PPM; if IE, multidisciplinary treatment including possible OHS). - Apr: YONATHAN formal read without evidence of endocarditis - Apr: Atropine 0.5mg administered bedside: pre-atropine TX 420ms at HR 93, post-atropine TX 420ms at HR 113 Recommendations: - Notable TX prolongation this admission (~420 ms) as compared to prior (~220 ms in Sep 2024). Initially suspicious for aortic root infection however YONATHAN reassuring - BCX x2 from admission (20 April) negative. - Of note, TX interval did not accommodate with atropine - In the absence of clear IE, will plan to proceed with leadless PPM implant before discharge - Please obtain an US of the left femoral vein for pre-procedure assessment given limited options for access - Please obtain 12-lead ECG daily to reassess TX interval - The EP Consult service shall [...] Cardiac Electrophysiology Fellow PGY-7 Heart,Vascular, and Thoracic [facility] CONSULT PROG Observed: 05/19/2025 11:05 AM Status: COMPLETED Source: [facility] HNO ID: [id number] Author: BOLA GARVIN, PhD Service: Psychology Author [...] 19, 2025 TIME: 3:39 PM PSYCHOLOGY PAGER: [phone] PROGRESS Observed: 05/19/2025 8:29 AM Status: COMPLETED Source: [facility] ID: [id number] Author: LUIS CUI MD Service: General Internal [...] the note. Agree with assessment and plan. Mechanical Applications Engineer:Prolonged Service: I personally spent greater than 30 minutes involved in patient care and coordination of services for this patient Luis Cui MD Authenticated by responsible provider. [facility]PART[facility] OF [facility] MEDICINE PROGRESS NOTE SERVICE DATE: 05/19/2025 SERVICE TIME: 8:29 AM Hospital Medicine/Primary Attending: Luis Cui MD NIGHT AND WEEKEND COVERAGE: [facility] COVERAGE: Nights: [phone], please page Team Jeffrey Haq; overnight/admitting pager [phone] Subjective Chief Complaint: Pain and chronic chest [...] and Airways Line Duration Peripheral 04/26/25 2100 [facility] Right Forearm 20 Gauge 22 days Dialysis / Apheresis Double Lumen 04/29/25 1005 [facility] Tunneled Right Internal Jugular 19 days DATA: [...] management of bleeding, and on transfer to [facility], patient began to have significant bleeding from [...] - Follows with Dr. Moreno (cardiology in [place]) for mgmt of Coumadin, will need follow-up [...] #Chronic Hypotension #Secondary Hyperparathyroidism - iHD at [facility] through R. Tunneled HD catheter MWF [...] -- 04/10/25 1015 activity - mobilize patient ([place], [place]) 04/04/25 0900 graduated compression stockings ([place]) VTE Prophylaxis: VTE prophylaxis appropriate Disposition: To be determined Plan of care discussed with Provider, RN, Patient Plan communicated to: Family Dae Miner MD PGY-1 [place], [address] My Pager ALLIED HEALTH Observed: 05/18/2025 4:05 PM Status: COMPLETED Source: [facility] HNO ID: [id number] Author: SHANNON HOOD Music Therapist Service: Music [...] 18, 2025 TIME: 4:05 PM PAGER/CONTACT #: [phone] PLAN OF CARE Observed: 05/18/2025 2:04 PM Status: COMPLETED Source: [facility] HNO ID: [id number] Author: MYRIAM WARD APRN.CNP Service: Plastic Surgery [...] agreement with plan of care. Myriam Ward APRN.INDUSTRIAL TECHNOLOGIST May 18, 2025 2:06 PM ANES POSTPROC EVAL Observed: 05/18/2025 1:11 PM Status: COMPLETED Source: [facility] HNO ID: [id number] Author: MOHAMUD SANCHEZ MD Service: ? Author [...] May 18, 2025 TIME: 1:11 PM CSN: [id number] NUTRITION Observed: 05/18/2025 12:30 PM Status: COMPLETED Source: [facility] HNO ID: [id number] Author: ADIEL MCKINLEY DTR Service: Nutrition Therapy Author Type: Java Engineer Type: Nutrition Filed: 05/18/2025 12:43 Note Text: NUTRITION THERAPY AGRICULTURAL SERVICE TECHNICIAN NOTE SERVICE DATE: 05/18/2025 SERVICE TIME: 1230 [...] Observed: 05/18/2025 11:21 AM Status: COMPLETED Source: [facility] HNO ID: [id number] Author: VICKIE DURHAM APRN.INDUSTRIAL TECHNOLOGIST Service: Nephrology Author Type: Nurse Practitioner Type: Consult Progress Note Filed: 05/18/2025 17:07 Note Text: Department of Kidney Medicine Medical Specialties [facility] NEPHROLOGY CONSULT SERVICE PROGRESS NOTE INTERVAL [...] and Airways Line Duration Peripheral 04/26/25 2100 [facility] Right Forearm 20 Gauge 21 days Dialysis / Apheresis Double Lumen 04/29/25 1005 [facility] Tunneled Right Internal Jugular 19 days Labs: [...] 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, PR, PE, CVA, CHB, colitis, Adjustment Disorder With Depressed Mood, MSSA bacteremia, Proximal Colon Ulcer, Hypothyroidism, Intra-Abdominal Varices, , S/P MAZE procedure, skin ulcers, GERD, YEIMY, DVTs Patient presented to [facility] on 04/20/25 with chief complaint of [...] of first HD: 2005 -Current HD unit: [facility] -Loading Dock Hand: Dr Melendez -Schedule: Fri-Fri-Fri -Time: 4.5 hrs -EDW: 114 kg -Date of last outpatient dialysis: 04/18/25 -Access: R IJ TDC 04/29/2025 s/p S/p 04/29 venogram , 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 Please DO NOT schedule patient for a nephrology follow up appointment. Kidney care will be provided by the primary member of technical staff at their dialysis unit upon hospital discharge. Vickie Durham APRN.[facility] Nephrology and Hypertension [facility] May 18, 2025 5:06 PM PAGER # [phone] Disclosures: Parts of the current progress note may have been copied from a previous note. FOR AFTER HOUR CONCERNS BETWEEN 5PM - 7AM CONTACT ON-CALL NEPHROLOGY FELLOW [phone] ANEErick PRE-OP Observed: 05/18/2025 9:54 AM Status: COMPLETED Source: [facility] HNO ID: [id number] Author: MOHAMUD SANCHEZ MD Service: ? Author [...] complication of procedure (+) Unspecified atherosclerosis of [place] arteries of extremities, right leg (+) Venous [...] and consent discussed: yes. Patient / Responsible Libertarian agrees to proceed: yes Patient / Surrogate [...] May 18, 2025 TIME: 9:54 AM CSN: [id number] ECHO TRANSESOPHAGEAL Observed: 9:45 AM Status: F Source: [facility] Echocardiography Report: Tra nsesophageal Echo Main [place] Bedside Date of service: 05/18/2025 9:45:44 AM STAMPER Ordering physician: LUIS CUI Exam indication: ?Endocarditis [...] in this exam. Exam performed under general [id number] min. (Stop Time: 10:10) No specimens collected. [...] * * Final * * * CC [employer] Image : [id number] CNOV Observed: 05/18/2025 9:30 AM Status: COMPLETED Source: [facility] Office Visit (CAFLMN) ELIA WESTON ([id number]) 1980 M [facility] Date Time Provider Department 05/18/25 9:30 [...] In Department: CARDIOLOGY Referring Provider: SANA MIR [[id number]] Allergies As of Date: 05/18/2025 Noted Allergy [...] by this patient by: PATIENT Nini Redd, [facility] Problem List As Of Date 05/18/2025 Noted Resolved ESRD (end stage renal disease) on dialysis ([facility]*10/16/2012 HTN (hypertension) [I10] 10/16/2012 Obesity [E66.9] 11/02/2012 Epigastric pain [R10.13] 11/02/2012 Mechanical complication of other vascular devic*02/12/2013 Right knee pain [M25.561] 07/29/2013 Obesity, morbid, BMI 40.0-49.9 ([facility]) [E66.01] 02/22/2014 Tendinitis of left shoulder [M77.8] 02/22/2014 Mass of left thigh [R22.42] 09/08/2014 Thigh pain [M79.659] 09/08/2014 Hematuria [R31.9] 12/08/2014 Dialysis patient ([facility]) [Z99.2] 12/08/2014 YEIMY (obstructive sleep apnea) [G47.33] 05/09/2015 Abdominal or pelvic swelling, mass, or lump, ri*05/09/2015 Secondary hyperparathyroidism, renal (HCC) [N25*05/09/2015 Renal osteodystrophy [N25.0] 05/09/2015 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*05/09/2015 Groin pain [R10.30] 05/09/2015 Personal history of DVT (deep vein thrombosis) *03/28/2016 Sprain of medial collateral ligament of right k*04/22/2016 ESRD (end stage renal disease) ([facility]) [N18.6] 04/21/2019 PAF (paroxysmal atrial fibrillation) ([facility]) [I48*12/02/2018 A-V fistula ([facility]) [I77.0] 04/23/2019 Anemia of chronic disease [D63.8] 04/23/2019 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] 05/18/2021 ESRD on hemodialysis ([facility]) [N18.6, Z99.2] 04/07/2019 Expressive dysphasia [R47.02] 08/01/2021 History of endocarditis [Z86.79] 08/01/2021 Hearing loss [H91.90] 02/17/2018 History of non-ST elevation myocardial infarcti*11/08/2019 Heart failure, unspecified ([facility]) [I50.9] 08/05/2011 Iron deficiency anemia, unspecified [D50.9] 05/31/2008 Chronic anticoagulation [Z79.01] 08/01/2021 Mitral valve disease [I05.9] 08/01/2021 Myocardial infarction ([facility]) [I21.9] 08/01/2021 Noncompliance with medication regimen [Z91.148] 08/01/2021 Paroxysmal atrial flutter ([facility]) [I48.92] 08/01/2021 Pulmonary embolism ([facility]) [I26.99] 08/01/2021 Pulmonary edema [J81.1] 08/01/2021 Stenosis of other vascular prosthetic devices, *05/22/2021 Unspecified atherosclerosis of [place] arteries *10/30/2013 Vitamin D deficiency [E55.9] 10/16/2020 [...] Observed: 05/18/2025 9:22 AM Status: COMPLETED [facility] [id number] Author: LUCILLE MURPHY, PT Service: Physical Therapy Author Type: Physical Therapist Type: Therapy (PT/OT/Speech/Resp) Filed: 05/18/2025 09:23 Note Text: PHYSICAL THERAPY MISSED VISIT SERVICE DATE: 05/18/2025 SERVICE TIME: 921 ROOM: [place] [address] (J1-5 CARD FUNCTION LAB) Patient not seen due to Test / Procedure. Pt off unit at test. Will re-attempt as schedule allows. SIGNATURE: Lucille Murphy PT PATIENT NAME: Elia Weston DATE: May 18, 2025 TIME: 9:22 AM NURSING PROG Observed: 05/18/2025 9:06 AM Status: COMPLETED Source: [facility] HNO ID: [id number] Author: FELIPA FERRARA RN Service: ? Author [...] Observed: 05/18/2025 6:39 AM Status: COMPLETED Source: [facility] HNO ID: [id number] Author: LUIS CUI MD Service: General Internal [...] the note. Agree with assessment and plan. Mechanical Applications Engineer:Prolonged Service: I personally spent greater than 30 minutes involved in patient care and coordination of services for this patient Luis Cui MD Authenticated by responsible provider. [facility] MEDICINE PROGRESS NOTE SERVICE DATE: 05/18/2025 SERVICE TIME: 6:39 AM Hospital Medicine/Primary Attending: Luis Cui MD NIGHT AND WEEKEND COVERAGE: [facility] COVERAGE: Nights: [phone], please page Team Jeffrey Haq; overnight/admitting pager [phone] Subjective Chief Complaint: Pain and chronic chest [...] and Airways Line Duration Peripheral 04/26/25 2100 [facility] Right Forearm 20 Gauge 21 days Dialysis / Apheresis Double Lumen 04/29/25 1005 [facility] Tunneled Right Internal Jugular 18 days DATA: [...] management of bleeding, and on transfer to [facility], patient began to have significant bleeding from [...] - Follows with Dr. Moreno (cardiology in [place]) for mgmt of Coumadin, will need follow-up [...] #Chronic Hypotension #Secondary Hyperparathyroidism - iHD at [facility] through R. Tunneled HD catheter MWF - Last dialysis session Friday04/18/2025; missed Fri session because he presented to [facility] ED - anuric at baseline per [...] -- 04/10/25 1015 activity - mobilize patient ([place], [place]) 04/04/25 0900 graduated compression stockings ([place]) VTE Prophylaxis: VTE prophylaxis appropriate Disposition: To be determined Plan of care discussed with Provider, RN, Patient Plan communicated to: Family Dae Miner MD PGY-1 [place], [address] My Pager CBC PNL BLD AUTO Collected: 5 4:06 AM Status: F Source: [facility] Order Comment: Specimen Type : BLOOD SPECIMEN Ordering Facility: [facility] Address: [address] [place] [address] TYPE CODE TESTS RESULT OUT OF RANGE [...] MCHC RBC Auto-mCnc 30.9 30.5-36.0 g/dL LAB 30026-6(LOINC) RDW RBC-Rto 20.1 High 11.5-15.0 % LAB 777-3(LOINC) Platelet # Bld Auto 201 150-400 k/uL LAB 12745-9(LOINC) PMV Bld Auto 11.0 9.0-12.7 fL LAB 771-6(LOINC) nRBC # Bld Auto <0.01 <0.01 k/uL Performed By: #### 82843-7 # ### [facility] CLIA [id number] [address] [place] [address] [place] PT PNL PPP Collected: 05/18/2025 1:30 AM Status: F Source: [facility] Order Comment: Specimen Type : BLOOD SPECIMEN Ordering Facility: [facility] Address: [address] [place] [address] TYPE CODE TESTS RESULT OUT OF RANGE REFERENCE UNITS LAB 5902-2(INC) Prothrombin time 29.1 High 9.7-13.0 sec LAB 6301-6(INC) INR PPP 2.9 High 0.9-1.3 Result Comment: Vitamin K An tagonist (VKA) Therapeutic Range: INR 2 to 3 (Target INR of 2.5) Note: For patients treated with VKA drugs, such as warfarin, the [employer] 2012 Guideline recommends [...] Chest 2012, 141:7S-47S Kevin RA, et al. [facility] 2017, 70: 252-289 Performed By: #### 57770-1 # ### [facility] IA [id number] [address] [place] [address] [place] COMP METAB 2000 PNL SERPL Collected: 1:30 AM Status: F Source: [facility] Order Comment: Specimen Type : BLOOD SPECIMEN Ordering Facility: [facility] Address: [address] [place], [place] [address] [id number] TYPE CODE TESTS RESULT OUT OF RANGE REFERENCE UNITS LAB 2885-2(LOINC) Prot SerPl-mCnc 7.1 6.3-8.0 g/dL LAB 1751-7(LOINC) Albumin SerPl-mCnc 3.4 Low 3.9-4.9 g/dL LAB 71708-3(LOINC) Calcium SerPl-mCnc 7.9 Low 8.5-10.2 mg/dL LAB 1975-2(LOINC) Bilirub SerPl-mCnc 0.3 0.2-1.3 mg/dL LAB 6768-6(LOINC) ALP SerPl-cCnc 148 High 38-113 U/L LAB 1920-8(LOINC) AST SerPl-cCnc 21 14-40 U/L LAB 1742-6(LOINC) ALT SerPl-cCnc 11 10-54 U/L LAB 2345-7(LOINC) Glucose SerPl-mCnc 105 High 74-99 mg/dL Result Comment: The [place] Diabetes Association (ADA) provides guidance for cutoff [...] Standards of Medical Care in Diabetes 2016, [place] Diabetes Association. Diabetes Care. 2016.39(Suppl 1). LAB 3094-0(LOINC) BUN SerPl-mCnc 13 9-24 mg/dL LAB 2160-0(LOINC) Creat SerPl-mCnc 5.63 High 0.73-1.22 mg/dL LAB 2951-2(LOINC) Sodium SerPl-sCnc 137 136-144 mmol/L LAB 2823-3(LOINC) Potassium SerPl-sCnc 4.7 3.7-5.1 mmol/L LAB 2075-0(LOINC) Chloride SerPl-sCnc 98 98-107 mmol/L LAB 2028-9(LOINC) CO2 SerPl-sCnc 25 22-30 mmol/L LAB 75071-3(LOINC) Anion Gap SerPl-sCnc 14 8-15 mmol/L LAB 16319-2(LOINC) eGFRcr SerPlBld CKD-EPI 2020 12 Low >=60 [...] accurately reflect actual GFR. Performed By: #### 03223-3 # ### [facility] CLIA [id number] [address] [place] [address] NURSING PROG Observed: 05/17/2025 9:16 PM Status: COMPLETED Source: [facility] HNO ID: [id number] Author: LEVI PATEL RN Service: Nursing Author [...] 5.63, and INR of 2.9, Dr. Wong ([facility] director) notified per text message. CONSULT PROG Observed: 05/17/2025 5:59 PM Status: COMPLETED Source: [facility] HNO ID: [id number] Author: CHAY QURESHI MD Service: Electrophysiology Author Type: Fellow Type: Consult Progress Note Filed: 05/17/2025 17:59 Note Text: [facility] ELECTROPHYSIOLOGY CONSULT PROGRESS NOTE Elia Weston [id number] PRIMARY SERVICE: Internal Medicine CONSULTING SERVICE: Electrophysiology [...] - 14 Apr: Awaiting YONATHAN. ECG with TX continuing to prolong (~450 ms). - 15 Apr: Unable to undergo YONATHAN with conscious sedation (required a lot of sedation to be comfortable resulting in hypotension). - 16 Apr: ECG demonstrates TX ~430 ms - 18 Apr: Discussed EP plan in detail (YONATHAN to assess for IE, if no IE leadless PPM; if IE, multidisciplinary treatment including possible OHS). Recommendations: - Notable TX prolongation this admission (~400 ms) as compared [...] Please obtain 12-lead ECG daily to reassess TX interval - If there is no evidence of IE, given unexplained TX prolongation and degeneration of conduction, shall likely plan for PPM before discharge (leadless device would be best in this patient with difficult vascular access and high infectious risk) - The EP Consult service shall continue to follow with you Sandhya Qureshi MD Fellow in Clinical Cardiac Electrophysiology, PGY-8 Section of Cardiac Pacing and Electrophysiology Heart, Vascular and Thoracic [place] [facility] CASE MANAGEM Observed: 05/17/2025 3:07 PM Status: COMPLETED Source: [facility] HN ID: [id number] Author: GEORGIA WARD RN Service: Care Management Author Type: Registered Nurse Type: Care Mgt Progress Note Filed: 05/17/2025 15:08 Note Text: CARE MANAGEMENT PROGRESS NOTE SERVICE DATE: 05/17/2025 SERVICE TIME: 3:07 PM LOS: 26 days Needs Prior to Discharge: To Be Determined, Procedure DISCHARGE PLAN Discharge plan discussed with: medical team, [facility] (dialysis center) Didi [phone] Anticipated Discharge Plan: TBD Anticipated Discharge Date: [...] Observed: 05/17/2025 1:25 PM Status: COMPLETED Source: [facility] ID: [id number] Author: BOLA GARVIN, PhD Service: Psychology Author [...] Patient referred for possible adjustment disorder. Elia eWston was seen bedside for 60 minutes by [...] social supports. Identified recent visit from his rn imaging as highly motivating and encouraging. Discussed additional [...] from: Art Therapy, Music Therapy, Aromatherapy, and Door Assembler/Spiritual Services. - Following d/c the patient may benefit from outpatient psychotherapy follow-up ongoing psychology support. Resources provided to patient. SIGNATURE: Janak Landry PSYD PATIENT NAME: Elia Weston DATE: May 17, 2025 TIME: 3:30 PM PSYCHOLOGY PAGER: [phone] THERAPY NT Observed: 05/17/2025 11:18 AM Status: COMPLETED Source: [facility] HN ID: [id number] Author: LUCILLE MURPHY PT Service: Physical Therapy Author Type: Physical Therapist Type: Therapy (PT/OT/Speech/Resp) Filed: 05/17/2025 11:19 Note Text: PHYSICAL THERAPY MISSED VISIT SERVICE DATE: 05/17/2025 SERVICE TIME: 1117 ROOM: [place] [address] (Q6-1 Hemodialysis) Patient not seen due to Test / Procedure. Pt off unit at dialysis. Will re-attempt as schedule allows. SIGNATURE: Lucille Murphy PT PATIENT NAME: Elia Weston DATE: May 17, 2025 TIME: 11:18 AM PROGRESS Observed: 05/17/2025 10:18 AM Status: COMPLETED Source: [facility] HNO ID: [id number] Author: DAE MINER MD Service: General Internal Medicine Author Type: Resident Type: Progress Notes Filed: 05/17/2025 10:26 Note Text: DEPARTMENT OF HOSPITAL MEDICINE PROGRESS NOTE SERVICE DATE: 05/17/2025 SERVICE TIME: 10:18 AM Hospital Medicine/Primary Attending: Luis Cui MD NIGHT AND WEEKEND COVERAGE: [facility] COVERAGE: Nights: [phone], please page Team Jeffrey Haq; overnight/admitting pager [phone] Subjective Chief Complaint: Pain and chronic chest [...] and Airways Line Duration Peripheral 04/26/25 2100 [facility] Right Forearm 20 Gauge 20 days Dialysis / Apheresis Double Lumen 04/29/25 1005 [facility] Tunneled Right Internal Jugular 18 days DATA: [...] management of bleeding, and on transfer to [facility], patient began to have significant bleeding from [...] - Follows with Dr. Moreno (cardiology in [place]) for mgmt of Coumadin, will need follow-up [...] #Chronic Hypotension #Secondary Hyperparathyroidism - iHD at [facility] [place] through R. Tunneled HD catheter MWF - [...] -- 04/10/25 1015 activity - mobilize patient (nv,oh) 04/04/25 0900 graduated compression stockings ([place]) VTE Prophylaxis: VTE prophylaxis appropriate Disposition: To be determined Plan of care discussed with Provider, RN, Patient Plan communicated to: Family Dae Miner MD PGY-1 [place], [phone] My Pager CONSULT PROG Observed: 05/17/2025 9:52 AM Status: COMPLETED Source: [facility] HNO ID: [id number] Author: EVLA PATEL APRN.INDUSTRIAL TECHNOLOGIST Service: Nephrology Author Type: Nurse Practitioner Type: Consult Progress Note Filed: 05/17/2025 14:06 Note Text: Department of Kidney Medicine Medical Specialties [place] [facility] NEPHROLOGY CONSULT SERVICE PROGRESS NOTE INTERVAL [...] and Airways Line Duration Peripheral 04/26/25 2100 [facility] Right Forearm 20 Gauge 20 days Dialysis / Apheresis Double Lumen 04/29/25 1005 [facility] Tunneled Right Internal Jugular 17 days Labs: [...] 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, PR, PE, CVA, CHB, colitis, Adjustment Disorder With Depressed Mood, MSSA bacteremia, Proximal Colon Ulcer, Hypothyroidism, Intra-Abdominal Varices, , S/P MAZE procedure, skin ulcers, GERD, YEIMY, DVTs Patient presented to [facility] on 04/[facility]/25 with chief complaint of bloody [...] [facility] first HD: 2005 [facility] Hand: Dr Melendez -Schedule: Fri-Fri-Fri -Time: 4.5 hrs -EDW: 114 kg -Date of last outpatient dialysis: 04/18/25 -Access: R IJ TDC 04/29/2025 s/p S/p 04/29 venogram , 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 Please DO NOT schedule patient for a nephrology follow up appointment. Kidney care will be provided by the primary member of technical staff at their dialysis unit upon hospital discharge. Elva Patel APRN.INDUSTRIAL TECHNOLOGIST Nephrology and Hypertension [facility] May 17, 2025 9:52 AM PAGER # [phone] Disclosures: Parts of the current progress note may have been copied from a previous note. FOR AFTER HOUR CONCERNS BETWEEN 5PM - 7AM CONTACT ON-CALL NEPHROLOGY FELLOW [phone] PT PNL PPP Collected: 05/17/2025 7:15 AM Status: F Source: [facility] Order Comment: Specimen Type : BLOOD SPECIMEN Ordering Facility: [facility] Address: [address] [place] [address] TYPE CODE TESTS RESULT OUT OF RANGE REFERENCE UNITS LAB 5902-2(LOINC) Prothrombin time 34.7 High 9.7-13.0 sec LAB 6301-6(LOINC) INR PPP 3.5 High 0.9-1.3 Result Comment: Vitamin K An tagonist (VKA) Therapeutic Range: INR 2 to 3 (Target INR of 2.5) Note: For patients treated with VKA drugs, such as warfarin, the [place] College of Chest Physicians 2012 Guideline recommends [...] Chest 2012, 141:7S-47S Kevin RA, et al. [facility] 2017, 70: 252-289 Performed By: #### 09522-5 # ### [facility] CLIA [id number] [address] [place] [address] [place] COMP METAB 2000 PNL SERPL Collected: 7:15 AM Status: F Source: [facility] Order Comment: Specimen Type : BLOOD SPECIMEN Ordering Facility: [facility] Address: [address] [place], [place] [address] TYPE CODE TESTS RESULT OUT OF RANGE REFERENCE UNITS LAB 2885-2(LOINC) Prot SerPl-mCnc 7.2 6.3-8.0 g/dL LAB 1751-7(LOINC) Albumin SerPl-mCnc 3.6 Low 3.9-4.9 g/dL LAB 45690-8(LOINC) Calcium SerPl-mCnc 7.2 Low 8.5-10.2 mg/dL LAB 1975-2(LOINC) Bilirub SerPl-mCnc 0.3 0.2-1.3 mg/dL LAB 6768-6(LOINC) ALP SerPl-cCnc 146 High 38-113 U/L LAB 1920-8(LOINC) AST SerPl-cCnc 17 14-40 U/L LAB 1742-6(LOINC) ALT SerPl-cCnc 9 Low 10-54 U/L LAB 2345-7(LOINC) Glucose SerPl-mCnc 77 74-99 mg/dL Result Comment: The [place] Diabetes Association (ADA) provides guidance for cutoff [...] Standards of Medical Care in Diabetes 2016, [place] Diabetes Association. Diabetes Care. 2016.39(Suppl 1). LAB 3094-0(LOINC) BUN SerPl-mCnc 34 High 9-24 mg/dL LAB 2160-0(LOINC) Creat SerPl-mCnc 9.50 High 0.73-1.22 mg/dL LAB 2951-2(LOINC) Sodium SerPl-sCnc 138 136-144 mmol/L LAB 2823-3(LOINC) Potassium SerPl-sCnc 5.7 High 3.7-5.1 mmol/L LAB 2075-0(LOINC) Chloride SerPl-sCnc 99 98-107 mmol/L LAB 8-9(LOINC) CO2 SerPl-sCnc 22 22-30 mmol/L LAB 58332-9(LOINC) Anion Gap SerPl-sCnc 17 High 8-15 mmol/L LAB 01142-4(LOINC) eGFRcr SerPlBld CKD-EPI 2020 6 Low >=60 [...] accurately reflect actual GFR. Performed By: #### 77500-5, 30290-0 #### [facility] CLIA [id number] [address] [place] [address] MAGNESIUM SERPL-MCNC Collected: 05/17/2025 7:15 AM S tatus: F Source: [facility] Comment: Specimen Type : BLOOD SPECIMEN Ordering Facility: [facility] Address: [address] [place] [address] TYPE CODE TESTS RESULT OUT OF RANGE REFERENCE UNITS LAB 05834-8([facility]) Magnesium SerPl-mCnc 2.5 High 1.7-2.3 mg/dL Performed By: #### 50087-3, 55195-4 #### [facility] CLIA [id number] [address] [place] [address] CBC PNL BLD AUTO Collected: 7:15 AM Status: F Source: [facility] Comment: Specimen Type : BLOOD SPECIMEN Ordering Facility: [facility] Address: [address] [place] [address] TYPE CODE TESTS RESULT OUT OF RANGE [...] MCHC RBC Auto-mCnc 30.8 30.5-36.0 g/dL LAB 86947-5(LOINC) RDW RBC-Rto 20.5 High 11.5-15.0 % LAB 777-3([facility]) Platelet # Bld Auto 185 150-400 k/uL LAB 24224-5([facility]) PMV Bld Auto 11.2 9.0-12.7 fL LAB 771-6([facility]) nRBC # Bld Auto <0.01 <0.01 k/uL Performed By: #### 57269-8 # ### [facility] CLIA [id number] [address] [place] [address] CONSULT PROG Observed: 05/16/2025 5:59 PM Status: COMPLETED Source: [facility] HNO ID: [id number] Author: CHAY QURESHI MD Service: Electrophysiology Author Type: Fellow Type: Consult Progress Note Filed: 05/16/2025 17:59 Note Text: [facility] ELECTROPHYSIOLOGY CONSULT PROGRESS NOTE Elia Weston [id number] PRIMARY SERVICE: Internal Medicine CONSULTING SERVICE: Electrophysiology [...] - 14 Apr: Awaiting YONATHAN. ECG with TX continuing to prolong (~450 ms). - 15 Apr: Unable to undergo YONATHAN with conscious sedation (required a lot of sedation to be comfortable resulting in hypotension). - 16 Apr: ECG demonstrates TX ~430 ms - 18 Apr: Discussed EP plan in detail (YONATHAN to assess for IE, if no IE leadless PPM; if IE, multidisciplinary treatment including possible OHS). Recommendations: - Notable TX prolongation this admission (~400 ms) as compared [...] Please obtain 12-lead ECG daily to reassess TX interval - If there is no evidence of IE, given unexplained TX prolongation and degeneration of conduction, shall likely plan for PPM before discharge (leadless device would be best in this patient with difficult vascular access and high infectious risk) - The EP Consult service shall continue to follow with you Sandhya Qureshi MD Fellow in Clinical Cardiac Electrophysiology, PGY-8 Section of Cardiac Pacing and Electrophysiology Heart, Vascular and Thoracic [place] at [facility] NURSING PROG Observed: 05/16/2025 3:17 PM Status: COMPLETED Source: [facility] HNO ID: [id number] Author: SOFIE LARA RN Service: Nursing Author [...] Observed: 05/16/2025 2:47 PM Status: COMPLETED Source: [facility] ID: [id number] Author: AB SIEGEL DO Service: Plastic Surgery [...] 0316 -- Assessment/Plan 45 year old male [facility], significant for ESRD on HD (MWF) last [...] After 6PM and on weekends, please page [phone] (Plastic Surgery on-call - [facility]), otherwise contact above provider. CONSULT PROG Observed: 05/16/2025 2:45 PM Status: COMPLETED Source: [facility] ID: [id number] Author: BOLA GARVIN, PhD Service: Psychology Author [...] from: Art Therapy, Music Therapy, Aromatherapy, and Door Assembler/Spiritual Services. - Following d/c the patient may benefit from outpatient psychotherapy follow-up ongoing psychology support. Resources provided to patient. During weekdays ([phone]): Please page Janak Landry PsyD for any questions or concerns. After 1600, weekends, AND holidays: In case of any acute psychiatric or safety concerns, please page Psychiatry Artificial Stone Applicator [phone] SIGNATURE: Jenny Go, PhD PATIENT NAME: Elia Weston DATE: May 16, 2025 TIME: 5:25 PM PSYCHOLOGY PAGER: [phone] ALLIED HEALTH Observed: 05/16/2025 2:38 PM Status: COMPLETED Source: [facility]NO ID: [id number] Author: MARKO BARNHART Art Therapist Service: Art [...] 16, 2025 TIME: 2:38 PM PAGER/CONTACT #: [phone] PLAN OF CARE Observed: 05/16/2025 2:10 PM Status: COMPLETED Source: [facility]NO ID: [id number] Author: LELA SOLIMAN APRN.CNP Service: Nephrology Author Type: Nurse Practitioner Type: Plan of Care Filed: 05/16/2025 14:13 Note Text: Department of Kidney Medicine Medical Specialties [place] CONSULT PLAN OF CARE NOTE NEPHROLOGY Q6 SERVICE SERVICE DATE: 05/16/2025 SERVICE TIME: 2:11 PM SUBJECTIVE INTERVAL HISTORY: - Multiple requests made for patient to come for TECHNICAL SALES ASSOCIATE therapy today -Patient continues to refuse HD today -Electrolytes stable at this time respiratory status stable on RA -Primary team notified of patient's ongoing refusal today for TECHNICAL SALES ASSOCIATE -IF patient is needing urgent TECHNICAL SALES ASSOCIATE overnight he will need to be transferred [...] 10 ml/min Outpatient dialysis disposition plan: contact [phone] and ask to speak with the help desk consultant as needed for assistance with post-discharge arrangements. Please DO NOT schedule patient for a nephrology follow up appointment. Kidney care will be provided by the primary member of technical staff at their dialysis unit upon hospital discharge. SIGNATURE: Lela Soliman APRN.MIKI PATIENT NAME: Elia Weston DATE: May 16, 2025 TIME: 2:11 PM FOR AFTER HOUR CONCERNS BETWEEN 5PM - 7AM CONTACT ON-CALL NEPHROLOGY FELLOW [phone] Disclosures: Parts of the current progress note may have been copied from a previous note. ALLIED HEALTH Observed: 05/16/2025 2:08 PM Status: COMPLETED Source: [facility] ID: [id number] Author: SHANNON HOOD Music Therapist Service: Music [...] 16, 2025 TIME: 2:08 PM PAGER/CONTACT #: [phone] TYPE + SCREEN Collected: 05/16/2025 12:03 PM Status: F Source: [facility] Order Comment: Specimen Type : BLOOD SPECIMEN Ordering Facility: [facility] Address: [address] [place] [address] TYPE CODE TESTS RESULT OUT OF RANGE REFERENCE UNITS LAB [id number] ABO B LAB [id number] RH Positive LAB [id number] ANTIBODY SCREEN Negative LAB [id number] TYPE AND SCREEN EXPIRATION 05/19/2025 23:59 Performed By: #### TSCR #### [facility] [id number] [address] [place] [address] CASE MANAGEM Observed: 05/16/2025 10:41 AM Status: COMPLETED Source: [facility]NO ID: [id number] Author: MARIA T MARINA LSW Service: Care Management Author Type: Water Supply Technician Type: Care Mgt Progress Note Filed: 05/16/2025 12:43 Note Text: CARE MANAGEMENT PROGRESS NOTE SERVICE DATE: 05/16/2025 SERVICE TIME: 10:41 AM LOS: 25 days Post-Acute Discharge Planning Patient Goal(s): Be able to go home, General wellness [place] Explained: [place] Given: Yes Discharge Planning Participant(s): [...] Observed: 05/16/2025 7:26 AM Status: COMPLETED Source: [facility]NO ID: [id number] Author: LUIS CUI MD Service: General Internal [...] Continued close monitoring and multidisciplinary care ongoing. Mechanical Applications Engineer:Prolonged Service: I personally spent greater than 30 minutes involved in patient care and coordination of services for this patient Luis Cui MD Authenticated by responsible provider. [facility] MEDICINE PROGRESS NOTE SERVICE DATE: 05/16/2025 SERVICE TIME: 7:26 AM Hospital Medicine/Primary Attending: Luis Cui MD NIGHT AND WEEKEND COVERAGE: [facility] COVERAGE: Nights: [phone], please page Team Jeffrey Haq; overnight/admitting pager [phone] Subjective Chief Complaint: Pain and chronic chest [...] and Airways Line Duration Peripheral 04/26/25 2100 [facility] Right Forearm 20 Gauge 19 days Dialysis / Apheresis Double Lumen 04/29/25 1005 [facility] Tunneled Right Internal Jugular 16 days DATA: [...] management of bleeding, and on transfer to [facility], patient began to have significant bleeding from [...] - Follows with Dr. Moreno (cardiology in [place]) for mgmt of Coumadin, will need follow-up [...] #Chronic Hypotension #Secondary Hyperparathyroidism - iHD at [facility] [place] through R. Tunneled HD catheter MWF [...] -- 04/10/25 1015 activity - mobilize patient (nv,ct) 04/04/25 0900 graduated compression stockings ([place], [place]) VTE Prophylaxis: VTE prophylaxis appropriate Disposition: To be determined Plan of care discussed with Provider, RN, Patient Plan communicated to: Family Dae Miner MD PGY-1 Internal [place], [address] My Pager PT PNL PPP Collected: 05/16/2025 1:55 AM Status: F Source: [facility] Order Comment: Specimen Type : BLOOD SPECIMEN Ordering Facility: [facility] Address: [address] [place], [place] [address] TYPE CODE TESTS RESULT OUT OF RANGE REFERENCE UNITS LAB 5902-2(LOINC) Prothrombin time 26.8 High 9.7-13.0 sec LAB 6301-6(LOINC) INR PPP 2.6 High 0.9-1.3 Result Comment: Vitamin K An tagonist (VKA) Therapeutic Range: INR 2 to 3 (Target INR of 2.5) Note: For patients treated with VKA drugs, such as warfarin, the [place] College of Chest Physicians 2012 Guideline recommends [...] Chest 2012, 141:7S-47S Kevin RA, et al. [facility] 2017, 70: 252-289 Performed By: #### 22547-1 # ### [facility] CLIA [id number] [address] [place] [address] [place] CBC PNL BLD AUTO Collected: 5 1:55 AM Status: F Source: [facility] Order Comment: Specimen Type : BLOOD SPECIMEN Ordering Facility: [facility] Address: [address] [place], [place] [address] TYPE CODE TESTS RESULT OUT OF RANGE REFERENCE UNITS LAB 6690-2(LOINC) WBC # Bld Auto 7.00 3.70-11.00 k/uL LAB 789-8(LOINC) RBC # Bld Auto 2.55 Low 4.20-6.00 m/uL LAB 718-7(LOINC) Hgb Bld-mCnc 7.2 Low 13.0-17.0 g/dL LAB 4544-3(LOINC) Hct VFr Bld Auto 24.9 Low 39.0-51.0 % LAB 787-2([facility]) MCV RBC Auto 97.6 80.0-100.0 fL LAB 785-6([facility]) MCH RBC Qn Auto 28.2 26.0-34.0 pg LAB 786-4([facility]) MCHC RBC Auto-mCnc 28.9 Low 30.5-36.0 g/dL LAB 95599-4([facility]) RDW RBC-Rto 19.7 High 11.5-15.0 % LAB 777-3([facility]) Platelet # Bld Auto 198 150-400 k/uL LAB 94084-8([facility]) PMV Bld Auto 11.6 9.0-12.7 fL LAB 771-6([facility]) nRBC # Bld Auto <0.01 <0.01 k/uL Performed By: #### 79067-4 # ### [facility] CLIA [id number] [address] [place] [address] [place] COMP METAB 2000 PNL SERPL Collected: 1:55 AM Status: F Source: [facility] Order Comment: Specimen Type : BLOOD SPECIMEN Ordering Facility: [facility] Address: [address] [place] [address] TYPE CODE TESTS RESULT OUT OF RANGE REFERENCE UNITS LAB 2885-2([facility]) Prot SerPl-mCnc 7.7 6.3-8.0 g/dL LAB 1751-7(INC) Albumin SerPl-mCnc 3.7 Low 3.9-4.9 g/dL LAB 07900-6([facility]) Calcium SerPl-mCnc 7.9 Low 8.5-10.2 mg/dL LAB 1975-2([facility]) Bilirub SerPl-mCnc 0.3 0.2-1.3 mg/dL LAB 6768-6([facility]) ALP SerPl-cCnc 156 High 38-113 U/L LAB 1920-8(LOINC) AST SerPl-cCnc 17 14-40 U/L LAB 1742-6(LOINC) ALT SerPl-cCnc 13 10-54 U/L LAB 2345-7(LOINC) Glucose SerPl-mCnc 87 74-99 mg/dL Result Comment: The [place] Diabetes Association (ADA) provides guidance for cutoff [...] Standards of Medical Care in Diabetes 2016, [place] Diabetes Association. Diabetes Care. 2016.39(Suppl 1). LAB 3094-0(LOINC) BUN SerPl-mCnc 24 9-24 mg/dL LAB 2160-0(LOINC) Creat SerPl-mCnc 7.82 High 0.73-1.22 mg/dL LAB 2951-2(LOINC) Sodium SerPl-sCnc 138 136-144 mmol/L LAB 2823-3(LOINC) Potassium SerPl-sCnc 5.2 High 3.7-5.1 mmol/L LAB 2075-0(LOINC) Chloride SerPl-sCnc 98 98-107 mmol/L LAB 2028-9(LOINC) CO2 SerPl-sCnc 24 22-30 mmol/L LAB 78408-5(LOINC) Anion Gap SerPl-sCnc 16 High 8-15 mmol/L LAB 64294-6(LOINC) eGFRcr SerPlBld CKD-EPI 2020 8 Low >=60 [...] accurately reflect actual GFR. Performed By: #### 11958-2 # ### [facility] CLIA [id number] [address] [place] [id number] [place] PROGRESS Observed: 05/15/2025 6:31 AM Status: COMPLETED Source: [facility] ID: [id number] Author: LUIS CUI MD Service: Hospital Medicine [...] Continued close monitoring and multidisciplinary care ongoing. Mechanical Applications Engineer:Prolonged Service: I personally spent greater than 30 minutes involved in patient care and coordination of services for this patient Luis Cui MD Authenticated by responsible provider. DEPARTMENT OF HOSPITAL MEDICINE PROGRESS NOTE SERVICE DATE: 05/15/2025 SERVICE TIME: 6:31 AM Hospital Medicine/Primary Attending: Luis Cui MD NIGHT AND WEEKEND COVERAGE: [facility] C[employer]: Nights: [phone], please page Team Jeffrey Haq; overnight/admitting pager [phone] Subjective Chief Complaint: Pain and chronic chest [...] and Airways Line Duration Peripheral 04/26/25 2100 [facility] Right Forearm 20 Gauge 18 days Dialysis / Apheresis Double Lumen 04/29/25 1005 [facility] Tunneled Right Internal Jugular 15 days DATA: [...] management of bleeding, and on transfer to [facility], patient began to have significant bleeding from [...] - Follows with Dr. Moreno (cardiology in [place]) for mgmt of Coumadin, will need follow-up [...] #Chronic Hypotension #Secondary Hyperparathyroidism - iHD at [facility] [place] through R. Tunneled HD catheter MWF [...] 996 on 05/08/25, Replete Iron levels for NAABELLA, per Nephrology recommendation, however due to concerns [...] -- 04/10/25 1015 activity - mobilize patient ([place], [place]) 04/04/25 0900 graduated compression stockings ([place] VTE Prophylaxis: VTE prophylaxis appropriate Disposition: To be determined Plan of care discussed with Provider, RN, Patient Plan communicated to: Family Dae Miner MD PGY-1 [place], [phone] My Pager CBC PNL BLD AUTO Collected: 5 1:54 AM Status: F Source: [facility] Order Comment: Specimen Type : BLOOD SPECIMEN Ordering Facility: [facility] Address: [address] [place] [address] TYPE CODE TESTS RESULT OUT OF RANGE [...] RBC Auto-mCnc 29.4 Low 30.5-36.0 g/dL LAB 44094-4(LOINC) RDW RBC-Rto 19.5 High 11.5-15.0 % LAB 777-3(LOINC) Platelet # Bld Auto 209 150-400 k/uL LAB 69081-5(LOINC) PMV Bld Auto 11.7 9.0-12.7 fL LAB 771-6(LOINC) nRBC # Bld Auto <0.01 <0.01 k/uL Performed By: #### 89722-0 # ### [facility] CLIA [id number] [address] [place] [address] STATES OF [facility] PT PNL PPP Collected: 05/15/2025 1:54 AM Status: F Source: [facility] Order Comment: Specimen Type : BLOOD SPECIMEN Ordering Facility: [facility] Address: [address] [place] [address] TYPE CODE TESTS RESULT OUT OF RANGE REFERENCE UNITS LAB 5902-2([facility]) Prothrombin time 26.6 High 9.7-13.0 sec LAB 6301-6([facility]) INR PPP 2.6 High 0.9-1.3 Result Comment: Vitamin K An tagonist (VKA) Therapeutic Range: INR 2 to 3 (Target INR of 2.5) Note: For patients treated with VKA drugs, such as warfarin, the [place] College of Chest Physicians 2012 Guideline recommends [...] Chest 2012, 141:7S-47S Kevin RUSHING et al. [facility] 2017, 70: 252-289 Performed By: #### 21346-8 # ### [facility] CLIA [id number] [address] [place] [address] [place] MEDICAL RAPHAEL Observed: 05/14/2025 9:05 PM Status: COMPLETED Source: [facility] HNO ID: [id number] Author: YAJAIRA GLASS MD Service: Critical Care [...] (HCC) 2005 ESRD from HTN Dialysis M,W,F [facility] [phone] Essential hypertension, benign 1998 EKG 09/30 NL. [...] jacket, goes to wound care center in [place] PAST SURGICAL HISTORY Procedure Laterality Date ARTERIOVENOUS FISTULA Left 08/29/2010 CAPSULE ENDOSCOPY 07/01/2023 CARDIOVERSION-ELECTIVE N/A 12/03/2018 200 joules synchronized - successful COLONOSCOPY 07/01/2023 EGD 06/27/2023 HERNIA REPAIR HX PAST SURGICAL HISTORY OF 08/29/2010 dialysis fistula left arm PAST SURGICAL HISTORY OF Right 03/2019 Right leg femoral vein to superficial femoral artery loop graft mid thigh REPAIR CLEFT LIP RMVL LEANN CVC W/O SUBQ PORT/BANQUET STEWARDESS 01/17/2013 SHX CARDIAC RADIOFREQUENCY ABLATION 08/21/2021 s/p [...] 1+ Dialysis / Apheresis Double Lumen 04/29/251004 [facility] Tunneled Right Internal Jugular (Active) Placement Date/Time: 04/29/251004 Line, Drain, Airway Placed by: [facility] Type: Tunneled Location: Right Insertion Site: Internal Jugular Peripheral 04/26/252099 [facility] Right Forearm 20 Gauge (Active) Placement Date/Time: 07/29/25 2100 Line, Drain, Airway Placed by: [facility] Facility Location: Right Insertion Site: Forearm [...] Observed: 05/14/2025 8:06 PM Status: COMPLETED Source: [facility] HNO ID: [id number] Author: JONATHON JOHNSON MD Service: General Internal Medicine Author [...] Observed: 05/14/2025 6:46 PM Status: COMPLETED Source: [facility] HNO ID: [id number] Author: HARRIS MILLER RN Service: PICC Team [...] to [place] [id number] PT PNL PPP Collected: 05/14/2025 6:38 PM Status: F Source: [facility] Order Comment: Specimen Type : BLOOD SPECIMEN Ordering Facility: [facility] Address: [address] [place] [address] TYPE CODE TESTS RESULT OUT OF RANGE REFERENCE UNITS LAB 5902-2(LOINC) Prothrombin time 26.2 High 9.7-13.0 sec LAB 6301-6(LOINC) INR PPP 2.6 High 0.9-1.3 Result Comment: Vitamin K An tagonist (VKA) Therapeutic Range: INR 2 to 3 (Target INR of 2.5) Note: For patients treated with VKA drugs, such as warfarin, the [place] College of Chest Physicians 2012 Guideline recommends [...] Chest 2012, 141:7S-47S Kevin RA, et al. [facility] 2017, 70: 252-289 Performed By: #### 44828-9 # ### [facility] CLIA [id number] [address] [place] [address] [place] COMP METAB 2000 PNL SERPL Collected: 6:38 PM Status: F Source: [facility] Order Comment: Specimen Type : BLOOD SPECIMEN Ordering Facility: [facility] Address: [address] [place] [address] TYPE CODE TESTS RESULT OUT OF RANGE REFERENCE UNITS LAB 2885-2(LOINC) Prot SerPl-mCnc 7.7 6.3-8.0 g/dL LAB 1751-7(LOINC) Albumin SerPl-mCnc 3.8 Low 3.9-4.9 g/dL LAB 94674-6(LOINC) Calcium SerPl-mCnc 8.1 Low 8.5-10.2 mg/dL LAB 1975-2(LOINC) Bilirub SerPl-mCnc 0.4 0.2-1.3 mg/dL LAB 6768-6(LOINC) ALP SerPl-cCnc 163 High 38-113 U/L LAB 1920-8(LOINC) AST SerPl-cCnc 20 14-40 U/L LAB 1742-6(LOINC) ALT SerPl-cCnc 13 10-54 U/L LAB 2345-7(INC) Glucose SerPl-mCnc 75 74-99 mg/dL Result Comment: The [place] Diabetes Association (ADA) provides guidance for cutoff [...] Standards of Medical Care in Diabetes 2016, [place] Diabetes Association. Diabetes Care. 2016.39(Suppl 1). LAB 3094-0(LOINC) BUN SerPl-mCnc 15 9-24 mg/dL LAB 2160-0(LOINC) Creat SerPl-mCnc 5.67 High 0.73-1.22 mg/dL LAB 2951-2(LOINC) Sodium SerPl-sCnc 140 136-144 mmol/L LAB 2823-3(LOINC) Potassium SerPl-sCnc 5.1 3.7-5.1 mmol/L LAB 2075-0(LOINC) Chloride SerPl-sCnc 98 98-107 mmol/L LAB 202-9(LOINC) CO2 SerPl-sCnc 27 22-30 mmol/L LAB 33222-4(LOINC) Anion Gap SerPl-sCnc 15 8-15 mmol/L LAB 81650-3(LOINC) eGFRcr SerPlBld CKD-EPI 2020 12 Low >=60 [...] accurately reflect actual GFR. Performed By: #### 85662-7 # ### [facility] CLIA [id number] [address] [place] [address] [place] CBC PNL BLD AUTO Collected: 5 1:10 PM Status: F Source: [facility] Order Comment: Specimen Type : BLOOD SPECIMEN Ordering Facility: [facility] Address: [address] [place] [address] TYPE CODE TESTS RESULT OUT OF RANGE [...] MCHC RBC Auto-mCnc 30.5 30.5-36.0 g/dL LAB 72332-3(LOINC) RDW RBC-Rto 19.7 High 11.5-15.0 % LAB 777-3(LOINC) Platelet # Bld Auto 148 Low 150-400 k/uL LAB 41263-3(LOINC) PMV Bld Auto 12.2 9.0-12.7 fL LAB 771-6(LOINC) nRBC # Bld Auto <0.01 <0.01 k/uL Performed By: #### 44712-5 # ### [facility] CLIA [id number] [address] [place] [address] [place] PROGRESS Observed: 05/13/2025 3:53 PM Status: COMPLETED Source: [facility] HNO ID: [id number] Author: SANA MIR MD Service: Hospital Medicine Author Type: Resident Type: Progress Notes Filed: 05/13/2025 17:46 Note Text: Attestation signed by Sana Mir MD at 05/13/2025 5:46 PM This is a duplicate progress note. Please see note from 05/13/25 at 6:12AM which has my addendum. Sana Mir MD Associate [facility] Medicine DEPARTMENT OF [facility] MEDICINE PROGRESS NOTE SERVICE DATE: 05/13/2025 SERVICE TIME: 3:53 PM Hospital Medicine/Primary Attending: Sana Mir MD NIGHT AND WEEKEND COVERAGE: [facility] COVERAGE: Nights: [phone], please page Team Jeffrey Haq; overnight/admitting pager [phone] Subjective Chief Complaint: Pain and chronic chest [...] and Airways Line Duration Peripheral 04/26/25 2100 [facility] Right Forearm 20 Gauge 16 days Dialysis / Apheresis Double Lumen 04/29/25 1005 [facility] Tunneled Right Internal Jugular 14 days DATA: [...] management of bleeding, and on transfer to [facility], patient began to have significant bleeding from [...] - Follows with Dr. Moreno (cardiology in [place]) for mgmt of Coumadin, will need follow-up [...] #Chronic Hypotension #Secondary Hyperparathyroidism - iHD at [facility] [place] through R. Tunneled HD catheter MWF - [...] -- 04/10/25 1015 activity - mobilize patient ([place], [place]) 04/04/25 0900 graduated compression stockings ([place]) VTE Prophylaxis: VTE prophylaxis appropriate Disposition: To be determined Plan of care discussed with Provider, RN, Patient Plan communicated to: Family Dae Miner MD PGY-1 [place], [phone] My Pager ECHO TRANSESOPHAGEAL Observed: 2:53 PM Status: F Source: [facility] Echocardiography Report: Tra nsesophageal Echo [place] J1-5 Date of service: 05/13/2025 2:53:54 PM STAMPER Ordering physician: SANA MIR Exam indication: ?Embolic [...] * * Final * * * CC [employer] : [id number] CASE MANAGEM Observed: 05/13/2025 2:42 PM Status: COMPLETED Source: [facility] HNO ID: [id number] Author: VICENTA TORRES LSW Service: Care Management Author Type: Water Supply Technician Type: Care Mgt Progress Note Filed: 05/13/2025 [...] Primary team aware Other Concerns: n/a Weekend Information Technology Manager: Please see Treatment Team for Care Management Weekend/Holiday coverage. SIGNATURE: CANDY Flores PATIENT NAME: Elia Weston DATE: May 13, 2025 TIME: 2:42 PM PLAN OF CARE Observed: 05/13/2025 2:37 PM Status: COMPLETED Source: [facility] HNO ID: [id number] Author: TOD REYES MD Service: Cardiovascular Medicine [...] Reyes M.D. Cardiovascular Medicine Fellow, PGY-6 Pg: [phone]: 05/13/2025 3:57 PM We attempted to complete the YONATHAN under conscious sedation and gave 5 rounds of sedation. The patient became hypotensive to ~80/50's and was not sedated enough to perform the procedure. The YONATHAN was aborted for patient safety and hypotension and will be rescheduled with general anesthesia. Tod Reyes M.D. Cardiovascular Medicine Fellow, PGY-6 Pg: [phone] PLAN OF CARE Observed: 05/13/2025 1:42 PM Status: COMPLETED Source: [facility] HNO ID: [id number] Author: DAE MINER MD Service: Hospital Medicine [...] Observed: 05/13/2025 1:23 PM Status: COMPLETED Source: [facility] HNO ID: [id number] Author: CAMMIE MESSINA RN Service: ? Author [...] Observed: 05/13/2025 1:00 PM Status: COMPLETED Source: [facility] Office Visit (CAFLMN) ELIA WESTON ([id number]) 1980 [facility] Date Time Provider Department 05/13/25 1:00 PM [...] sedation, consent obtained. Referring Provider: SANA MIR [[id number]] Allergies As of Date: 05/13/2025 Noted Allergy [...] by this patient by: PATIENT Nini Redd [facility] Problem List As Of Date 05/13/2025 Noted Resolved ESRD (end stage renal disease) on dialysis (HCC*10/16/2012 HTN (hypertension) [I10] 10/16/2012 Obesity [E66.9] 11/02/2012 Epigastric pain [R10.13] 11/02/2012 Mechanical complication of other vascular devic*02/12/2013 Right knee pain [M25.561] 07/29/2013 Obesity, morbid, BMI 40.0-49.9 ([facility]) [E66.01] 02/22/2014 Tendinitis of left shoulder [M77.8] 02/22/2014 Mass of left thigh [R22.42] 09/08/2014 Thigh pain [M79.659] 09/08/2014 Hematuria [R31.9] 12/08/2014 Dialysis patient ([facility]) [Z99.2] 12/08/2014 YEIMY (obstructive sleep apnea) [G47.33] 05/09/2015 Abdominal or pelvic swelling, mass, or lump, ri*05/09/2015 Secondary hyperparathyroidism, renal ([facility]) [N25*05/09/2015 Renal osteodystrophy [N25.0] 05/09/2015 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*05/09/2015 Groin pain [R10.30] 05/09/2015 Personal history of DVT (deep vein thrombosis) *03/28/2016 Sprain of medial collateral ligament of right k*04/22/2016 ESRD (end stage renal disease) ([facility]) [N18.6] 04/21/2019 PAF (paroxysmal atrial fibrillation) ([facility]) [I48*12/02/2018 A-V fistula ([facility]) [I77.0] 04/23/2019 Anemia of chronic disease [D63.8] 04/23/2019 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] 05/18/2021 ESRD on hemodialysis ([facility]) [N18.6, Z99.2] 04/07/2019 Expressive dysphasia [R47.02] 08/01/2021 History of endocarditis [Z86.79] 08/01/2021 Hearing loss [H91.90] 02/17/2018 History of non-ST elevation myocardial infarcti*11/08/2019 Heart failure, unspecified ([facility]) [I50.9] 08/05/2011 Iron deficiency anemia, unspecified [D50.9] 05/31/2008 Chronic anticoagulation [Z79.01] 08/01/2021 Mitral valve disease [I05.9] 08/01/2021 Myocardial infarction ([facility]) [I21.9] 08/01/2021 Noncompliance with medication regimen [Z91.148] 08/01/2021 Paroxysmal atrial flutter (HCC) [I48.92] 08/01/2021 Pulmonary embolism (HCC) [I26.99] 08/01/2021 Pulmonary edema [J81.1] 08/01/2021 Stenosis of other vascular prosthetic devices, *05/22/2021 Unspecified atherosclerosis of [place] arteries *10/30/2013 Vitamin D deficiency [E55.9] 10/16/2020 [...] Observed: 05/13/2025 12:02 PM Status: COMPLETED Source: [facility] HNO ID: [id number] Author: EDMAR RIOS RN Service: ? Author [...] Observed: 05/13/2025 12:00 PM Status: COMPLETED Source: [facility] HNO ID: [id number] Author: BOLA GARVIN, PhD Service: Psychology Author [...] informed that he was just taken to sleep lab technician procedure. As such, unable to complete follow up psychology visit. Psychology team will continue to follow and re-attempt to see pt as availability allows. SIGNATURE: Jenny Go, PhD PATIENT NAME: Elia Weston DATE: May 13, 2025 TIME: 2:06 PM PSYCHOLOGY PAGER: [phone] CONSULT PROG Observed: 05/13/2025 11:09 AM Status: COMPLETED Source: [facility] ID: [id number] Author: CHAY QURESHI MD Service: Electrophysiology Author Type: Fellow Type: Consult Progress Note Filed: 05/13/2025 11:09 Note Text: [facility] ELECTROPHYSIOLOGY CONSULT PROGRESS NOTE Elia Weston [id number] PRIMARY SERVICE: Internal Medicine CONSULTING SERVICE: Electrophysiology [...] - 14 Apr: Awaiting YONATHAN. ECG with TX continuing to prolong (~450 ms). - Apr: On the schedule for YONATHAN today. Recommendations: - Notable TX prolongation this admission (~400 ms) as compared to prior (~220 ms in Sep 2024). Unknown aetiology and largely asymptomatic, though given infectious risk we must be suspicious for IE. - BCX x2 from admission (20 April) negative. - Awaiting YONATHAN to better assess for IE - Please obtain 12-lead ECG daily to reassess TX interval - If there is no evidence of IE, given unexplained TX prolongation and degeneration of conduction, shall likely plan for PPM before discharge (leadless device would be best in this patient with difficult vascular access and high infectious risk) - The EP Consult service shall continue to follow with you Sandhya Qureshi MD Fellow in Clinical Cardiac Electrophysiology, PGY-8 Section of Cardiac Pacing and Electrophysiology Heart, Vascular and Thoracic [place] [facility] CONSULT PROG Observed: 05/13/2025 10:47 AM Status: COMPLETED Source: [facility] HNO ID: [id number] Author: GIBSON ABBOTT APRN.INDUSTRIAL TECHNOLOGIST Service: Nephrology Author Type: Nurse Practitioner Type: [...] 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, PR, PE, CVA, CHB, colitis, Adjustment Disorder With Depressed Mood, MSSA bacteremia, Proximal Colon Ulcer, Hypothyroidism, Intra-Abdominal Varices, , S/P MAZE procedure, skin ulcers, GERD, YEIMY, DVTs Patient presented to [facility] on 04/20/25 with chief complaint of bloody [...] of first HD: 2005 -Current HD unit: [facility] -Loading Dock Hand: Dr Melendez -Schedule: Fri-Fri-Fri -Time: 4.5 hrs [...] meds eGFR<10 Outpatient dialysis disposition plan: contact [phone] and ask to speak with the help desk consultant as needed for assistance with post-discharge arrangements. Please DO NOT schedule patient for a nephrology follow up appointment. Kidney care will be provided by the primary member of technical staff at their dialysis unit upon hospital discharge. Disclosures: Parts of the current progress note may have been copied from a previous note. SIGNATURE: Gibson Abbott APRN.MIKI PATIENT NAME: Elia Weston DATE: May 13, 2025 TIME: 10:47 AM PAGER: [phone] FOR AFTER HOUR CONCERNS BETWEEN 5PM - 7AM CONTACT ON-CALL NEPHROLOGY FELLOW CONSULT PROG Observed: 05/13/2025 8:51 AM Status: COMPLETED Source: [facility] HNO ID: [id number] Author: KIMBERLY LYNN APRN.INDUSTRIAL TECHNOLOGIST Service: Wound Care Team Author Type: Nurse [...] again at a future date. Kimberly Lynn APRN.INDUSTRIAL TECHNOLOGIST THERAPY NT Observed: 05/13/2025 7:39 AM Status: COMPLETED Source: [facility] HNO ID: [id number] Author: RENÉE MARTINES PT, DPT Service: Physical Therapy Author Type: Physical Therapist Type: Therapy (PT/OT/Speech/Resp) Filed: 05/13/2025 07:40 Note Text: PHYSICAL THERAPY MISSED VISIT SERVICE DATE: 05/13/2025 SERVICE TIME: 07 ROOM: [place] [address] (Q6 - DIALYSIS) Patient not seen due to Test / Procedure. SIGNATURE: Renée Martines PT, DPT PATIENT NAME: Elia Weston DATE: May 13, 2025 TIME: 7:39 AM PT PNL PPP Collected: 05/13/2025 7:12 AM Status: F Source: [facility] Order Comment: Specimen Type : BLOOD SPECIMEN Ordering Facility: [facility] Address: [address] [place] [address] TYPE CODE TESTS RESULT OUT OF RANGE REFERENCE UNITS LAB 5902-2(LOINC) Prothrombin time 23.8 High 9.7-13.0 sec LAB 6301-6(LOINC) INR PPP 2.3 High 0.9-1.3 Result Comment: Vitamin K An tagonist (VKA) Therapeutic Range: INR 2 to 3 (Target INR of 2.5) Note: For patients treated with VKA drugs, such as warfarin, the [place] [employer] of [employer]icians 2012 Guideline recommends [...] JAC 2017, 70: 252-289 Performed By: #### 39145-6 # ### [facility] CLIA [id number] [address] [place] [address] OF [facility] PROGRESS Observed: 05/13/2025 6:12 AM Status: COMPLETED Source: [facility] HNO ID: [id number] Author: SANA MIR MD Service: Hospital Medicine Author Type: Physician Type: Progress Notes Filed: 05/13/2025 14:30 Note Text: DEPARTMENT OF HOSPITAL MEDICINE PROGRESS NOTE SERVICE DATE: 05/13/2025 SERVICE TIME: 6:12 AM Hospital Medicine/Primary Attending: Sana Mir MD NIGHT AND WEEKEND COVERAGE: [facility] COVERAGE: Nights: [phone], please page Team Jeffrey Haq; overnight/admitting pager [phone] Subjective Chief Complaint: Pain and chronic chest [...] and Airways Line Duration Peripheral 04/26/25 2100 [facility] Right Forearm 20 Gauge 16 days Dialysis / Apheresis Double Lumen 04/29/25 1005 [facility] Tunneled Right Internal Jugular 13 days DATA: [...] management of bleeding, and on transfer to [facility], patient began to have significant bleeding from [...] - Follows with Dr. Moreno (cardiology in [place]) for mgmt of Coumadin, will need follow-up outpatient - 1mg Vitamin K IV given to reverse Warfarin, in view of undergoing YONATHAN, with YONATHAN lab protocol of INR<4. - INR 05/11/25: 2.0, 3 mg Warfarin given. - INR 2.1 05/12/2025 warfarin increased to 3.5mg [place] [address], keeping dose of Warfarin at 3.5mg, will [...] note (05/12/25) : Daily EKG to assess TX interval and possible progression of AV block, ordered #Constipation - Last recorded bowel movement was on 05/09/25 PLAN: - Polyethylene glycol daily - Senna BID #ESRD on HD via Right TDC #Chronic Hypotension #Secondary Hyperparathyroidism - iHD at [facility] through R. Tunneled HD catheter MWF - [...] -- 04/10/25 1015 activity - mobilize patient (nv,ct) 04/04/25 0900 graduated compression stockings ([place], [place]) VTE Prophylaxis: VTE prophylaxis appropriate Disposition: To be determined Plan of care discussed with Provider, RN, Patient Plan communicated to: Family Dae Miner MD PGY-1 [place], [phone] My Pager Attending Note I evaluated the [...] to have Mobitz 1 with very prolonged TX interval. Echo obtained and has limited views due to body habitus and chest wall wounds, but is largely stable. Cardiology recommended EP eval. EP recommended YONATHAN to rule out IE as etiology of TX prolongation. INR must be <4 for YONATHAN. [...] His warfarin is managed by his outpatient blanchard grinder operator. He can go to outpatient lab for INR check at any time without appointment. Sana Mir MD Associate [facility] Medicine CONSULT PROG Observed: 05/12/2025 5:14 PM Status: COMPLETED Source: [facility] HNO ID: [id number] Author: CHAY QURESHI MD Service: Electrophysiology Author Type: Fellow Type: Consult Progress Note Filed: 05/12/2025 17:14 Note Text: [facility] ELECTROPHYSIOLOGY CONSULT PROGRESS NOTE Elia Herrera [place] [id number] PRIMARY SERVICE: Internal Medicine CONSULTING SERVICE: Electrophysiology [...] YONATHAN. - Apr: Awaiting YONATHAN. ECG with TX continuing to prolong (~450 ms). Recommendations: - Notable TX prolongation this admission (~400 ms) as compared to prior (~220 ms in Sep 2024). Unknown aetiology and largely asymptomatic, though given infectious risk we must be suspicious for IE. - Awaiting YONATHAN to better assess for IE - Please obtain 12-lead ECG daily to reassess TX interval - The EP Consult service shall continue to follow with you Sandhya Qureshi MD Fellow in Clinical Cardiac Electrophysiology, PGY-8 Section of Cardiac Pacing and Electrophysiology Heart, Vascular and Thoracic [place] at [facility] CASE MANAGEM Observed: 05/12/2025 2:30 PM Status: COMPLETED Source: [facility] HNO ID: [id number] Author: VICENTA TORRES LSW Service: Care Management Author Type: Water Supply Technician Type: Care Mgt Progress Note Filed: 05/12/2025 14:32 Note Text: CARE MANAGEMENT PROGRESS NOTE SERVICE DATE: 05/12/2025 SERVICE TIME: 2:30 PM LOS: 21 days Met with pt at bedside. Assisted with completion of form from his electric provider. Faxed completed form to [employer] at [phone]. Original provided to pt. Anticipate wknd dc. Pt will transport himself home. Dialysis coordinator will update his outpatient dialysis center. CM following. SIGNATURE: CANDY Flores PATIENT NAME: Elia Weston DATE: May 12, 2025 TIME: 2:30 PM CONSULT PROG Observed: 05/12/2025 1:55 PM Status: COMPLETED Source: [facility] HNO ID: [id number] Author: KIMBERLY LYNN APRN.CNP Service: Wound Care [...] Observed: 05/12/2025 12:30 PM Status: COMPLETED Source: [facility] HNO ID: [id number] Author: NOAH JUAREZ Chaplain Service: Spiritual Care Author Type: Door Assembler Type: Allied Health Filed: 05/12/2025 14:26 Note Text: SPIRITUAL CARE ASSESSMENT SERVICE DATE: 05/12/2025 SERVICE TIME: 12:30 Visit with: Patient Length of visit (minutes): 15 Presybeterian / Spirituality: Sabianist Reason: Emotional Support ASSESSMENT Emotional Disposition: Despair, [...] 12, 2025 TIME: 2:22 PM PAGER/CONTACT #: [phone] PLAN OF CARE Observed: 05/12/2025 12:28 PM Status: COMPLETED Source: [facility] HNO ID: [id number] Author: ?, ?, ? Service: ? Author Type: ? Type: Plan of Care Filed: 05/12/2025 12:33 Note Text: DEPARTMENT OF [facility] MEDICINE MOBILE DISCHARGE TEAM NOTE SERVICE [...] Called Mary Molina who transferred me to [facility]. Scheduling Team / RN stated that Pt will not be seen today and they will do their best for ERLINDA tomorrow. [facility] completion [...] PPP Collected: 11:36 AM Status: F Source: [facility] Order Comment: Specimen Type : BLOOD SPECIMEN Ordering Facility: [facility] Address: [address] [place] [address] TYPE CODE TESTS RESULT OUT OF RANGE REFERENCE UNITS LAB 5902-2(LOINC) Prothrombin time 21.2 High 9.7-13.0 sec LAB 6301-6(LOINC) INR PPP 2.1 High 0.9-1.3 Result Comment: Vitamin K An tagonist (VKA) Therapeutic Range: INR 2 to 3 (Target INR of 2.5) Note: For patients treated with VKA drugs, such as warfarin, the [employer] College of Chest Physicians 2012 Guideline recommends [...] Chest 2012, 141:7S-47S Kevin RA, et al. [facility] 2017, 70: 252-289 Performed By: #### 99793-4 # ### [facility] CLIA [id number] [address] [place] [address] [place] CONSULT PROG Observed: 05/12/2025 9:45 AM Status: COMPLETED Source: [facility] HNO ID: [id number] Author: BOLA GARVIN, PhD Service: Psychology Author [...] 12, 2025 TIME: 1:15 PM PSYCHOLOGY PAGER: [phone] A/V FISTULA GRAFT UNL VAS LAB Observed: 05/12/2025 9:36 AM Status: F Source: [facility] Non-Invasive Vascular [facility] [...] Interpreting physician: LEONIDAS Winston DO Final CC [employer] : [id number] See Link below for Image ECG COMPLETE Observed: 05/12/2025 6:28 AM Status: F Source: [facility] Ventricular Rate : 72 BPM QRS Duration : 58 ms Q-T Interval : 446 ms QTC Calculation(Bazett) : 488 ms Calculated R [place] : 152 degrees Calculated T [place] : 96 degrees WARNING: INTERPRETATION OF THIS ECG, ALTHOUGH ATTEMPTED, MAY BE ADVERSELY AFFECTED BY DATA QUALITY ACCELERATED JUNCTIONAL RHYTHM RIGHT AXIS DEVIATION CANNOT EXCLUDE ANTEROSEPTAL MYOCARDIAL INFARCTION , AGE UNDETERMINED ABNORMAL ECG Confirmed by HARRIS BOWER MD ([id number]) on 06/06/2025 12:29:20 AM NAME : ELIA WESTON PID : [id number] : 1980 Gender : Male Race : ORD : [id number] Procedure Date : May 12 2025 06:28:52 Edit Date : Jun 06 2025 00:29:26 Diagnosis: WARNING: INTERPRETATION OF THIS ECG, ALTHOUGH ATTEMPTED, MAY BE ADVERSELY AFFECTED BY DATA QUALITY ACCELERATED JUNCTIONAL RHYTHM RIGHT AXIS DEVIATION CANNOT EXCLUDE ANTEROSEPTAL MYOCARDIAL INFARCTION , AGE UNDETERMINED ABNORMAL ECG Confirmed by HARRIS BOWER MD ([id number]) on 06/06/2025 12:29:20 AM Test Reason : BANDAGE ON ALL, BP Location : 97 : G90 G090-21 Overread By : HARRIS BOWER MD Edited By : HARRIS BOWER MD Referred By : , Acquired by : KIT HINOJOSA PROGRESS Observed: 05/12/2025 6:05 AM Status: COMPLETED Source: [facility] HNO ID: [id number] Author: SANA MIR MD Service: General Internal Medicine Author Type: Physician Type: Progress Notes Filed: 05/12/2025 12:54 Note Text: DEPARTMENT OF HOSPITAL MEDICINE PROGRESS NOTE SERVICE DATE: 05/12/2025 SERVICE TIME: 6:06 AM Hospital Medicine/Primary Attending: Sana Mir MD NIGHT AND WEEKEND COVERAGE: [facility] COVERAGE: Nights: [phone], please page Team Jeffrey Haq; overnight/admitting pager [phone] Subjective Chief Complaint: Pain and chronic chest [...] and Airways Line Duration Peripheral 07/29/25 2100 [facility] Right Forearm 20 Gauge 15 days Dialysis / Apheresis Double Lumen 04/29/25 1005 [facility] Tunneled Right Internal Jugular 12 days DATA: [...] management of bleeding, and on transfer to [facility], patient began to have significant bleeding from [...] - Follows with Dr. Moreno (cardiology in [place]) for mgmt of Coumadin, will need follow-up [...] #Chronic Hypotension #Secondary Hyperparathyroidism - iHD at [facility] [place] through R. Tunneled HD catheter MWF - [...] -- 04/10/25 1015 activity - mobilize patient ([place], [place]) 04/04/25 0900 graduated compression stockings ([place] VTE Prophylaxis: VTE prophylaxis appropriate Disposition: To be determined Plan of care discussed with Provider, RN, Patient Plan communicated to: Family Jean-Paul Garcia MD PGY 1 Internal Medicine Resident [phone] 05/12/2025 6:06 AM Attending Note I evaluated [...] to have Mobitz 1 with very prolonged TX interval. Echo obtained and has limited views but is largely stable. Cardiology recommended EP eval. EP recommended YONATHAN, INR must be <4 for YONATHAN. Awaiting YONATHAN and final recommendations from EP. On warfarin for history of mechanical mitral valve. INR 2.1 today. Will avoid being supratherapeutic given plan for YONATHAN and his known wounds with propensity to bleed. Warfarin managed by his outpatient blanchard grinder operator. Sana Mir MD Associate Staff [facility] Medicine COMP METAB 1999 PNL SERPL Collected: 10:08 PM Status: F Source: [facility] Order Comment: Specimen Type : BLOOD SPECIMEN Ordering Facility: [facility] Address: [address] [place] [address] TYPE CODE TESTS RESULT OUT OF RANGE REFERENCE UNITS LAB 2885-2(LOINC) Prot SerPl-mCnc 7.6 6.3-8.0 g/dL LAB 1751-7(LOINC) Albumin SerPl-mCnc 3.6 Low 3.9-4.9 g/dL LAB 35553-6(LOINC) Calcium SerPl-mCnc 8.3 Low 8.5-10.2 mg/dL LAB 1975-2(LOINC) Bilirub SerPl-mCnc 0.5 0.2-1.3 mg/dL LAB 6768-6(LOINC) ALP SerPl-cCnc 163 High 38-113 U/L LAB 1920-8(LOINC) AST SerPl-cCnc 26 14-40 U/L LAB 1742-6(LOINC) ALT SerPl-cCnc 14 10-54 U/L LAB 2345-7(LOINC) Glucose SerPl-mCnc 91 74-99 mg/dL Result Comment: The [place] Diabetes Association (ADA) provides guidance for cutoff [...] Standards of Medical Care in Diabetes 2016, [place] Diabetes Association. Diabetes Care. 2016.39(Suppl 1). LAB 3094-0(LOINC) BUN SerPl-mCnc 11 9-24 mg/dL LAB 2160-0(LOINC) Creat SerPl-mCnc 4.36 High 0.73-1.22 mg/dL LAB 2951-2(LOINC) Sodium SerPl-sCnc 136 136-144 mmol/L LAB 2823-3(LOINC) Potassium SerPl-sCnc 4.4 3.7-5.1 mmol/L LAB 2075-0(LOINC) Chloride SerPl-sCnc 96 Low 98-107 mmol/L LAB 2028-9(LOINC) CO2 SerPl-sCnc 27 22-30 mmol/L LAB 63210-0(LOINC) Anion Gap SerPl-sCnc 13 8-15 mmol/L LAB 83409-8(LOINC) eGFRcr SerPlBld CKD-EPI 2020 16 Low >=60 [...] accurately reflect actual GFR. Performed By: #### 33411-5 # ### [facility] CLIA [id number] [address] [place] [address] [place] PT PNL PPP Collected: 05/11/2025 9:55 PM Status: F Source: [facility] Order Comment: Specimen Type : BLOOD SPECIMEN Ordering Facility: [facility] Address: [address] [place] [address] TYPE CODE TESTS RESULT OUT OF RANGE REFERENCE UNITS LAB 5902-2(LOINC) Prothrombin time 21.1 High 9.7-13.0 sec LAB 6301-6(LOINC) INR PPP 2.0 High 0.9-1.3 Result Comment: Vitamin K An tagonist (VKA) Therapeutic Range: INR 2 to 3 (Target INR of 2.5) Note: For patients treated with VKA drugs, such as warfarin, the [place] College of Chest Physicians 2012 Guideline recommends [...] Chest 2012, 141:7S-47S Kevin RA, et al. [facility] 2017, 70: 252-289 Performed By: #### 62780-1 # ### [facility] CLIA [id number] [address] [place] [address] STATES OF [facility] CBC PNL BLD AUTO Collected: 5 9:55 PM Status: F Source: [facility] Order Comment: Specimen Type : BLOOD SPECIMEN Ordering Facility: [facility] Address: [address] [place] [address] TYPE CODE TESTS RESULT OUT OF RANGE [...] RBC Qn Auto 28.2 26.0-34.0 pg LAB 786-4([facility]) MCHC RBC Auto-mCnc 30.0 Low 30.5-36.0 g/dL LAB 73895-2([facility]) RDW RBC-Rto 19.8 High 11.5-15.0 % LAB 777-3([facility]) Platelet # Bld Auto 195 150-400 k/uL LAB 40995-3([facility]) PMV Bld Auto 11.3 9.0-12.7 fL LAB 771-6([facility]) nRBC # Bld Auto <0.01 <0.01 k/uL Performed By: #### 51959-0 # ### [facility] CLIA [id number] [address] [place] [address] CONSULT PROG Observed: 05/11/2025 6:55 PM Status: COMPLETED Source: [facility] HNO ID: [id number] Author: CHAY QURESHI MD Service: Electrophysiology Author Type: Fellow Type: Consult Progress Note Filed: 05/11/2025 18:59 Note Text: [facility] ELECTROPHYSIOLOGY CONSULT PROGRESS NOTE Elia Weston [id number] PRIMARY SERVICE: Internal Medicine CONSULTING SERVICE: Electrophysiology [...] - Apr: Awaiting YONATHAN. Recommendations: - Notable TX prolongation this admission (~400 ms) as compared to prior (~220 ms in Sep 2024). Unknown aetiology and largely asymptomatic, though given infectious risk we must be suspicious for IE. - Awaiting YONATHAN to better assess for IE - Please obtain repeat 12-lead ECG tomorrow to reassess TX interval - The EP Consult service shall continue to follow with you MJim Qureshi MD Fellow in Clinical Cardiac Electrophysiology, PGY-8 Section of Cardiac Pacing and Electrophysiology Heart, Vascular and Thoracic [place] [facility] ALLIED HEALTH Observed: 05/11/2025 5:02 PM Status: COMPLETED Source: [facility] HNO ID: [id number] Author: MARKO BARNHART Art Therapist Service: Art [...] 11, 2025 TIME: 5:09 PM PAGER/CONTACT #: [phone] PT PNL PPP Collected: 05/11/2025 4:36 PM Status: F Source: [facility] Order Comment: Specimen Type : BLOOD SPECIMEN Ordering Facility: [facility] Address: [address] [place] [address] TYPE CODE TESTS RESULT OUT OF RANGE REFERENCE UNITS LAB 5902-2(LOINC) Prothrombin time 21.9 High 9.7-13.0 sec LAB 6301-6(LOINC) INR PPP 2.1 High 0.9-1.3 Result Comment: Vitamin K An tagonist (VKA) Therapeutic Range: INR 2 to 3 (Target INR of 2.5) Note: For patients treated with VKA drugs, such as warfarin, the [place] College of Chest Physicians 2012 Guideline recommends [...] Chest 2012, 141:7S-47S Kevin RUSHING et al. [facility] 2017, 70: 252-289 Performed By: #### 13009-8 # ### [facility] CLIA [id number] [address] [place] [address] ALLIED HEALTH Observed: 05/11/2025 3:10 PM Status: COMPLETED Source: [facility] HNO ID: [id number] Author: NOAH JUAREZ Chaplain Service: Spiritual Care Author Type: Door Assembler Type: Allied Health Filed: 05/11/2025 16:07 Note Text: SPIRITUALCARE Spiritual Care Visit- Brief Note Name: Elia Weston Date: May 11, 2025 Notes: Door Assembler responded to [facility] referrals. Attempted visit twice with patient twice. On the first visit patient was said to have gone for dialysis, and on the second visit patient was asleep. radio station engineer clothes separator would be informed for follow up. Door Assembler availability 21/04 SIGNATURE: Chaplain Frank PATIENT NAME: Elia Weston DATE: May 11, 2025 TIME: 3:57 PM This is an electronically created document. IF PRINTED, PLEASE DO NOT REMOVE FROM THE CHART OR MODIFY PRINTED COPY. CONSULT PROG Observed: 05/11/2025 11:32 AM Status: COMPLETED Source: [facility] HNO ID: [id number] Author: KIMBERLY LYNN APRN.INDUSTRIAL TECHNOLOGIST Service: Wound Care Team Author Type: Nurse Practitioner Type: Consult Progress Note Filed: 05/11/2025 11:33 Note Text: Wound Care Consult Team Assessment Note: PATIENT NAME: Elia Weston WCCT attempted to see patient to follow up on wounds today at 1009, patient is out of room at dialysis at this time. Will attempt to see again at a future date. Kimberly Lynn APRN.INDUSTRIAL TECHNOLOGIST CONSULT PROG Observed: 05/11/2025 10:52 AM Status: COMPLETED Source: [facility] HNO ID: [id number] Author: GIBSON ABBOTT APRN.CNP Service: Nephrology Author [...] 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, PR, PE, CVA, CHB, colitis, Adjustment Disorder With Depressed Mood, MSSA bacteremia, Proximal Colon Ulcer, Hypothyroidism, Intra-Abdominal Varices, , S/P MAZE procedure, skin ulcers, GERD, YEIMY, DVTs [facility] with chief complaint of [...] of first HD: 2005 -Current HD unit: [facility] -Loading Dock Hand: Dr Melendez -Schedule: Fri-Fri-Fri -Time: 4.5 hrs [...] meds eGFR<10 Outpatient dialysis disposition plan: contact [phone] and ask to speak with the help desk consultant as needed for assistance with post-discharge arrangements. Please DO NOT schedule patient for a nephrology follow up appointment. Kidney care will be provided by the primary member of technical staff at their dialysis unit upon hospital discharge. Disclosures: Parts of the current progress note may have been copied from a previous note. SIGNATURE: Gibson Abbott APRN.CNP PATIENT NAME: Elia Weston DATE: May 11, 2025 TIME: 10:52 AM PAGER: [phone] FOR AFTER HOUR CONCERNS BETWEEN 5PM - 7AM CONTACT ON-CALL NEPHROLOGY FELLOW CASE MANAGEM Observed: 05/11/2025 10:31 AM Status: COMPLETED Source: [facility] HNO ID: [id number] Author: VICENTA TORRES LSW Service: Care Management Author Type: Water Supply Technician Type: Care Mgt Progress Note Filed: 05/11/2025 10:32 Note Text: CARE MANAGEMENT PROGRESS NOTE SERVICE DATE: 05/11/2025 SERVICE TIME: 10:31 AM LOS: 20 days DISCHARGE PLAN Discharge plan discussed with: n/a Anticipated Discharge Plan: Home with Home Care, accepted by [facility] Anticipated Discharge Date: TBD DISCHARGE TRANSPORTATION Patient has been informed that discharge time is 12pm on day of discharge. Discharge Transportation: pt reports he drove himself here and plans on driving home Discharge Barriers: n/a CM following. SIGNATURE: CANDY Flores PATIENT NAME: Elia Weston DATE: May 11, 2025 TIME: 10:31 AM ALLIED HEALTH Observed: 05/11/2025 7:10 AM Status: COMPLETED Source: [facility] HNO ID: [id number] Author: JAROD SOLIS Chaplain Service: Spiritual Care Author Type: Door Assembler Type: Allied Health Filed: 05/11/2025 07:17 Note Text: SPIRITUAL CARE ASSESSMENT SERVICE DATE: 05/11/2025 SERVICE TIME: 6:15pm Visit with: Patient Length of visit (minutes): 60 Presybeterian / Spirituality: Buddhist/Sabianist Reason: Referral from: Other: ? Purpose of [...] 11, 2025 TIME: 7:10 AM PAGER/CONTACT #: [phone] PROGRESS Observed: 05/11/2025 6:38 AM Status: COMPLETED Source: [facility] HNO ID: [id number] Author: SANA MIR MD Service: Hospital Medicine Author Type: Physician Type: Progress Notes Filed: 05/11/2025 15:50 Note Text: DEPARTMENT OF HOSPITAL MEDICINE PROGRESS NOTE SERVICE DATE: 05/11/2025 SERVICE TIME: 6:38 AM Hospital Medicine/Primary Attending: Sana Mir MD NIGHT AND WEEKEND COVERAGE: [facility] COVERAGE: Nights: [phone], please page Team Jeffrey Haq; overnight/admitting pager [phone] Subjective Chief Complaint: Pain and chronic chest [...] and Airways Line Duration Peripheral 04/26/25 2100 [facility] Right Forearm 20 Gauge 14 days Dialysis / Apheresis Double Lumen 04/29/25 1005 [facility] Tunneled Right Internal Jugular 11 days DATA: [...] management of bleeding, and on transfer to [facility], patient began to have significant bleeding from [...] - Follows with Dr. Moreno (cardiology in [place]) for mgmt of Coumadin, will need follow-up [...] #Chronic Hypotension #Secondary Hyperparathyroidism - iHD at [facility] through R. Tunneled HD catheter MWF - [...] -- 04/10/25 1015 activity - mobilize [place] ([place]) 04/04/25 0900 graduated compression stockings ([place] VTE Prophylaxis: VTE prophylaxis appropriate Disposition: To be determined Plan of care discussed with Provider, RN, Patient Plan communicated to: Family Dae Miner MD PGY-1 [place], [phone] My Pager Attending Note I evaluated the [...] YONATHAN. His warfarin is managed by outpatient blanchard grinder operator in [place]. 05/06 noted to have Mobitz 1 with very prolonged TX interval. Echo obtained and has limited views but is largely stable. Cardiology recommended EP eval. EP recommended YONATHAN, INR must be <4 for YONATHAN. Patient is agreeable to YONATHAN tomorrow if INR is within range. Sana Mir MD Associate Staff [facility] Medicine NURSING PROG Observed: 05/11/2025 1:15 AM Status: COMPLETED Source: [facility] HNO ID: [id number] Author: ARPIT HUNT, RN Service: Nursing Author [...] Observed: 05/10/2025 4:14 PM Status: COMPLETED Source: [facility] HNO ID: [id number] Author: SANA MIR MD Service: Hospital Medicine Author Type: Physician Type: Progress Notes Filed: 05/11/2025 12:21 Note Text: DEPARTMENT OF HOSPITAL MEDICINE PROGRESS NOTE SERVICE DATE: 05/10/2025 SERVICE TIME: 6:16 AM Hospital Medicine/Primary Attending: Sana Mir MD NIGHT AND WEEKEND COVERAGE: [facility] COVERAGE: Nights: [phone], please page Team Jeffrey Haq; overnight/admitting pager [phone] Subjective Chief Complaint: Pain and chronic chest [...] and Airways Line Duration Peripheral 04/26/25 2100 [facility] Right Forearm 20 Gauge 13 days Dialysis / Apheresis Double Lumen 04/29/25 1005 [facility] Tunneled Right Internal Jugular 10 days DATA: [...] management of bleeding, and on transfer to [facility], patient began to have significant bleeding from [...] - Follows with Dr. Moreno (cardiology in [place]) for mgmt of Coumadin, will need follow-up [...] #Chronic Hypotension #Secondary Hyperparathyroidism - iHD at [facility] [place] through R. Tunneled HD catheter MWF [...] -- 04/10/25 1015 activity - mobilize [place] ([place], [place]) 04/04/25 0900 graduated compression stockings ([place] VTE Prophylaxis: VTE prophylaxis appropriate Disposition: To be determined Plan of care discussed with Provider, RN, Patient Plan communicated to: Family Dae Miner MD PGY-1 Internal [place], [address] My Pager Attending Note I evaluated the [...] AM. His warfarin is managed by outpatient blanchard grinder operator in [place]. 05/06 noted to have Mobitz 1 with very prolonged TX interval. Echo obtained and has limited views but is largely stable. Cardiology recommended EP eval. EP recommended YONATHAN, INR must be <4 for YONATHAN. 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 Has been sleeping in recliner 2/2 to pain. (+) driving SUBJECTIVE Patient pleasant and agreeable to PT. THERAPY DIAGNOSIS Reduced mobility-other, Muscle Weakness (generalized), General symptoms and signs-other TREATMENT INTERVENTIONS Therapeutic Activity (00587), Gait Training (40581) Timed Code Treatment (minutes): 23 Skilled Treatment [...] Observed: 05/10/2025 2:47 PM Status: COMPLETED Source: [facility] ID: [id number] Author: JANAK LANDRY PSYD Service: Psychology Author [...] with his family through virtual means (e.g. [employer] bible study, phone calls, etc.), but that [...] family Obsessive Compulsive Disorder: Endorsed being a material planner who needs to ensure T's are [...] (HCC) 2005 ESRD from HTN Dialysis M,W,F [facility] [phone] Essential hypertension, benign 1998 EKG 09/30 NL. [...] Paroxysmal atrial fibrillation (HCC) PE (pulmonary thromboembolism) ([facility]) Pelvic mass Pseudoaneurysm of AV hemodialysis fistula (HCC) Wound of right side of back from friction/rubbing of jacket, goes to wound care center in [place] PAST SURGICAL HISTORY Procedure Laterality Date ARTERIOVENOUS FISTULA Left 08/29/2010 CAPSULE ENDOSCOPY 07/01/2023 CARDIOVERSION-ELECTIVE N/A 12/03/2018 200 joules synchronized - successful COLONOSCOPY 07/01/2023 EGD 06/27/2023 HERNIA REPAIR HX PAST SURGICAL HISTORY OF 08/29/2010 dialysis fistula left arm PAST SURGICAL HISTORY OF Right 03/2019 Right leg femoral vein to superficial femoral artery loop graft mid thigh REPAIR CLEFT LIP RMVL LEANN CVC W/O SUBQ PORT/BANQUET STEWARDESS 01/17/2013 SHX CARDIAC RADIOFREQUENCY ABLATION 08/21/2021 s/p [...] including: Art Therapy, Music Therapy, Aromatherapy, and Door Assembler/Spiritual Services. - Following d/c the patient may benefit from outpatient psychotherapy follow-up ongoing psychology support. Resources provided to patient. During weekdays ([phone]): Please page Janak Landry PsyD for any questions or concerns. After 1600, weekends, AND holidays: In case of any acute psychiatric or safety concerns, please page Psychiatry Artificial Stone Applicator [phone] SIGNATURE: Janak Landry PsyD PATIENT NAME: Elia Weston DATE: May 10, 2025 TIME: 2:47 PM PSYCHOLOGY PAGER: [phone] CONSULT Observed: 05/10/2025 1:50 PM Status: COMPLETED Source: [facility] ID: [id number] Author: BOLA GARVIN, PhD Service: Psychology Author [...] feelings of guilt beginning ~1.5 years ago Macry: Denies any history of hypomanic or manic episodes. Generalized Anxiety Disorder: Endorsed symptoms of worry , fatigue, and sleep disturbance beginning ~1.5 years ago Panic: Endorsed 1-2 panic attacks in the past in the context of unexpected deaths in the family Obsessive Compulsive Disorder: Endorsed being a material planner who needs to ensure T's are [...] (HCC) 2005 ESRD from HTN Dialysis M,W,F [facility] [phone] Essential hypertension, benign 1998 EKG 09/30 NL. [...] (HCC) MS (mitral stenosis) 10/08/2018 Transesophageal US YEMIY on CPAP Paroxysmal atrial fibrillation (HCC) PE (pulmonary thromboembolism) (HCC) Pelvic mass Pseudoaneurysm of AV hemodialysis fistula (HCC) Wound of right side of back from friction/rubbing of jacket, goes to wound care center in [place] PAST SURGICAL HISTORY Procedure Laterality Date ARTERIOVENOUS FISTULA Left 08/29/2010 CAPSULE ENDOSCOPY 07/01/2023 CARDIOVERSION-ELECTIVE N/A 12/03/2018 200 joules synchronized - successful COLONOSCOPY 07/01/2023 EGD 06/27/2023 HERNIA REPAIR HX PAST SURGICAL HISTORY OF 08/29/2010 dialysis fistula left arm PAST SURGICAL HISTORY OF Right 03/2019 Right leg femoral vein to superficial femoral artery loop graft mid thigh REPAIR CLEFT LIP RMVL LEANN CVC W/O SUBQ PORT/BANQUET STEWARDESS 01/17/2013 SHX CARDIAC RADIOFREQUENCY ABLATION 08/21/2021 s/p [...] for pain., Start Date 07/14/23, Authorizing Provider Marimra Ken FAMILY MEDICAL AND PSYCHIATRIC HISTORY: Family [...] including: Art Therapy, Music Therapy, Aromatherapy, and Door Assembler/Spiritual Services. - Following d/c the patient may benefit from outpatient psychotherapy follow-up ongoing psychology support. Resources provided to patient. During weekdays ([phone]): Please page Janak Landry PsyD for any questions or concerns. After 1599, weekends, AND holidays: In case of any acute psychiatric or safety concerns, please page Psychiatry Artificial Stone Applicator [phone] SIGNATURE: Janak Landry PsyD PATIENT NAME: Elia Weston DATE: May 10, 2025 TIME: 2:47 PM CL PSYCHOLOGY PAGER: [phone] STAFF ATTESTATION This service has been performed [...] Observed: 05/10/2025 12:48 PM Status: COMPLETED Source: [facility] ID: [id number] Author: KIMBERLY LYNN APRN.MIKI Service: Wound Care [...] again at a future date. Kimberly Lynn APRN.INDUSTRIAL TECHNOLOGIST NUTRITION Observed: 05/10/2025 9:56 AM Status: COMPLETED Source: [facility] HNO ID: [id number] Author: ADIEL MCKINLEY DTR Service: Nutrition Therapy Author Type: Java Engineer Type: Nutrition Filed: 05/10/2025 14:25 Note Text: NUTRITION THERAPY AGRICULTURAL SERVICE TECHNICIAN NOTE SERVICE DATE: 05/10/2025 SERVICE TIME: 955 [...] SERPL Collected: 3:42 AM Status: F Source: [facility] Order Comment: Specimen Type : BLOOD SPECIMEN Ordering Facility: [facility] Address: [address] [place] [address] TYPE CODE TESTS RESULT OUT OF RANGE REFERENCE UNITS LAB 1751-7(LOINC) Albumin SerPl-mCnc 3.6 Low 3.9-4.9 g/dL LAB 88541-0(LOINC) Calcium SerPl-mCnc 8.2 Low 8.5-10.2 mg/dL LAB 2777-1(LOINC) Phosphate SerPl-mCnc 3.5 2.7-4.8 mg/dL LAB 2345-7(LOINC) Glucose SerPl-mCnc 79 74-99 mg/dL Result Comment: The [place] Diabetes Association (ADA) provides guidance for cutoff [...] Standards of Medical Care in Diabetes 2016, [place] Diabetes Association. Diabetes Care. 2016.39(Suppl 1). LAB 3094-0(LOINC) BUN SerPl-mCnc 16 9-24 mg/dL LAB 2160-0(LOINC) Creat SerPl-mCnc 5.45 High 0.73-1.22 mg/dL LAB 2951-2(LOINC) Sodium SerPl-sCnc 137 136-144 mmol/L LAB 2823-3(LOINC) Potassium SerPl-sCnc 5.0 3.7-5.1 mmol/L LAB 2075-0(LOINC) Chloride SerPl-sCnc 96 Low 98-107 mmol/L LAB 2028-9(LOINC) CO2 SerPl-sCnc 28 22-30 mmol/L LAB 70446-2(LOINC) Anion Gap SerPl-sCnc 13 8-15 mmol/L LAB 70811-4(LOINC) eGFRcr SerPlBld CKD-EPI 2020 13 Low >=60 [...] accurately reflect actual GFR. Performed By: #### 02367-0 # ### [facility] CLIA [id number] [address] [place] [address] [place] PT PNL PPP Collected: 05/10/2025 3:41 AM Status: F Source: [facility] Order Comment: Specimen Type : BLOOD SPECIMEN Ordering Facility: [facility] Address: [address] [place] [address] TYPE CODE TESTS RESULT OUT OF RANGE REFERENCE UNITS LAB 5902-2(LOINC) Prothrombin time 50.5 High 9.7-13.0 sec LAB 6301-6(LOINC) INR PPP 5.2 High 0.9-1.3 Result Comment: Result reche cked. Sample checked for clot. Vitamin K Antagonist (VKA) Therapeutic Range: INR 2 to 3 (Target INR of 2.5) Note: For patients treated with VKA drugs, such as warfarin, the [place] College [employer]icians 2012 Guideline recommends [...] JACC 2017, 70: 252-289 Performed By: #### 76836-2 # ### [facility] CLIA [id number] [address] [place] [address] [place] RENAL FUNC 2000 PNL SERPL Collected: 3:41 AM Status: F Source: [facility] Order Comment: Specimen Type : BLOOD SPECIMEN Ordering Facility: [facility] Address: [place] [address] TYPE CODE TESTS RESULT OUT OF RANGE REFERENCE UNITS LAB 1751-7(LOINC) Albumin SerPl-mCnc 3.5 Low 3.9-4.9 g/dL LAB 64326-7(LOINC) Calcium SerPl-mCnc 8.2 Low 8.5-10.2 mg/dL LAB 2777-1(LOINC) Phosphate SerPl-mCnc 3.5 2.7-4.8 mg/dL LAB 2345-7(LOINC) Glucose SerPl-mCnc 78 74-99 mg/dL Result Comment: The [place] Diabetes Association (ADA) provides guidance for cutoff [...] Standards of Medical Care in Diabetes 2016, [place] Diabetes Association. Diabetes Care. 2016.39(Suppl 1). LAB 3094-0(LOINC) BUN SerPl-mCnc 16 9-24 mg/dL LAB 2160-0(LOINC) Creat SerPl-mCnc 5.54 High 0.73-1.22 mg/dL LAB 2951-2(LOINC) Sodium SerPl-sCnc 137 136-144 mmol/L LAB 2823-3(LOINC) Potassium SerPl-sCnc 5.0 3.7-5.1 mmol/L LAB 2075-0(LOINC) Chloride SerPl-sCnc 96 Low 98-107 mmol/L LAB 8-9(LOINC) CO2 SerPl-sCnc 26 22-30 mmol/L LAB 26047-6(LOINC) Anion Gap SerPl-sCnc 15 8-15 mmol/L LAB 47037-1(LOINC) eGFRcr SerPlBld CKD-EPI 2020 12 Low >=60 [...] accurately reflect actual GFR. Performed By: #### 72447-2 # ### 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 Has been sleeping in recliner 2/2 to pain. (+) driving SUBJECTIVE I've been doing these exercises. THERAPY DIAGNOSIS Reduced mobility-other, Muscle Weakness (generalized), General symptoms and signs-other TREATMENT INTERVENTIONS Therapeutic Exercise (78057) Timed Code Treatment (minutes): 23 Skilled Treatment [...] Observed: 05/09/2025 2:42 PM Status: COMPLETED Source: [facility]NO ID: [id number] Author: VICENTA TORRES LSW Service: Care Management Author Type: Water Supply Technician Type: Care Mgt Progress Note Filed: 05/09/2025 [...] Collected: 05/09/2025 1:50 PM Status: F Source: [facility] Order Comment: Specimen Type : BLOOD SPECIMEN Ordering Facility: [facility] Address: [address] [place] [address] TYPE CODE TESTS RESULT OUT OF RANGE REFERENCE UNITS LAB 5902-2(LOINC) Prothrombin time 54.6 High 9.7-13.0 sec LAB 6301-6(LOINC) INR PPP 5.7 High 0.9-1.3 Result Comment: Sample check ed for clot. Result rechecked. Vitamin K Antagonist (VKA) Therapeutic Range: INR 2 to 3 (Target INR of 2.5) Note: For patients treated with VKA drugs, such as warfarin, the [place] College of Chest Physicians 2012 Guideline recommends [...] Gukyaw GH, et al. Chest 2012, 141:7S-47S Keivn RA, et al. [facility] 2017, 70: 252-289 Performed By: #### 84593-1 # ### [facility] CLIA [id number] [address] [place] [address] [place] CONSULT PROG Observed: 05/09/2025 11:53 AM Status: COMPLETED Source: [facility]NO ID: [id number] Author: KIMBERLY LYNN APRN.CNP Service: Wound Care [...] again at a future date. Kimberly Lynn APRN.INDUSTRIAL TECHNOLOGIST CONSULT Observed: 05/09/2025 11:34 AM Status: COMPLETED Source: [facility] ID: [id number] Author: JIGAR HANNAH MD Service: Cardiovascular Medicine Author Type: Fellow Type: Consults Filed: 05/10/2025 16:14 Note Text: Attestation signed by Jigar Hannah MD at 05/10/2025 4:14 PM (Updated) [facility] STAFF PHYSICIAN NOTE OF PERSONAL INVOLVEMENT IN CARE IMPRESSION: History is well outlined above. Minimally symptomatic/asymptomatic from a heart rhythm standpoint and able to conduct 1:1 at times albeit with a prolonged TX. His TTE this admission has limited windows due to chest wall bandages from his bleeding wounds though I query some echodensities along the MV. While he doesn't have f/c/elevated wbc, given wounds and ESRD status, we need to rule out endocarditis as an etiology behind his progressive increase in TX interval compared to his EKG 's from [...] [facility] CARDI[facility]ULAR [facility]ICINE CONSULT NOTE (Template ID [id number]) Patient Name: Elia Weston : 1980 AGE: [...] He was found to have a prolonged TX interval (greater than 40 ms) with evidence of type I second-degree block. Because of this, patient was referred to EP. Patient of note is chronically on midodrine 20 mg 3 times daily for chronic hypotension. After talking to patient, he states that he has been largely asymptomatic despite having episodes of bradycardia. 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 This patient was seen and will be discussed with the Cardiovascular Medicine Consult staff, Dr. Hannah. No recommendations are final until the staff attestation is complete. Solis Castillo MD [1] Past Medical History: No date: Anemia of chronic disorder No date: Anuria 12/02/2018: Atrial fibrillation ([facility]) Comment: on Coumadin and Amiodarone No date: BMI 40.0-44.9, adult ([facility]) 2006: ESRD (end stage renal disease) on dialysis ([facility]) Comment: ESRD from HTN Dialysis M,W,F [facility] [phone] 1998: Essential hypertension, benign Comment: EKG 09/30 NL. No date: Hearing loss of both ears No date: History of mitral valve stenosis No date: Hx of bacterial endocarditis No date: Hyperparathyroidism due to end stage renal disease on dialysis ([facility]) 2006: Kidney disease Comment: ESRD due to HTN; on IHD since 2005 No date: 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 and scoliosis Comment: h/o this 3 y. Dx by xray. No date: Mechanical complication of arteriovenous fistula surgically created ([facility]) No date: Mechanical complication of dialysis catheter ([facility]) No date: Mitral valve disease No date: Morbid obesity ([facility]) 10/08/2018: MS (mitral stenosis) Comment: Transesophageal US No date: YEIMY on CPAP No date: Paroxysmal atrial fibrillation ([facility]) No date: PE (pulmonary thromboembolism) ([facility]) No date: Pelvic mass No date: Pseudoaneurysm of AV hemodialysis fistula ([facility]) No date: Wound of right side of back Comment: from friction/rubbing of jacket, goes to wound care center in [place] [2] Review of patient's family history indicates: [...] Observed: 05/09/2025 10:42 AM Status: COMPLETED Source: [facility] ID: [id number] Author: VICENTA TORRES LSW Service: Care Management Author Type: Water Supply Technician Type: Care Mgt Progress Note Filed: 05/09/2025 [...] Observed: 05/09/2025 10:32 AM Status: COMPLETED Source: [facility] ID: [id number] Author: SANA MIR MD Service: Hospital Medicine Author Type: Physician Type: Progress Notes Filed: 05/09/2025 15:13 Note Text: DEPARTMENT OF HOSPITAL MEDICINE PROGRESS NOTE SERVICE DATE: 05/09/2025 SERVICE TIME: 3:10 PM Hospital Medicine/Primary Attending: Sana Mir MD NIGHT AND WEEKEND COVERAGE: [facility] COVERAGE: Nights: [phone], please page Team Jeffrey Haq; overnight/admitting pager [phone] Subjective Chief Complaint: Pain and chronic chest [...] and Airways Line Duration Peripheral 04/26/25 2100 [facility] Right Forearm 20 Gauge 12 days Dialysis / Apheresis Double Lumen 04/29/25 1005 [facility] Tunneled Right Internal Jugular 10 days DATA: [...] management of bleeding, and on transfer to [facility], patient began to have significant bleeding from [...] - Follows with Dr. Moreno (cardiology in [place]) for mgmt of Coumadin, will need follow-up [...] #Chronic Hypotension #Secondary Hyperparathyroidism - iHD at [facility] through R. Tunneled HD catheter MWF - [...] -- 04/10/25 1015 activity - mobilize patient ([place], [place]) 04/04/25 0900 graduated compression stockings ([place] VTE Prophylaxis: VTE prophylaxis appropriate Disposition: To be determined Plan of care discussed with Provider, RN, Patient Plan communicated to: Family Dae Miner MD PGY-1 [place], [phone] My Pager Attending Note I evaluated the [...] Holding warfarin for now. Managed by outpatient blanchard grinder operator in [place]. 05/06 noted to have Mobitz 1 with very prolonged TX interval. Echo obtained and has limited views but is largely stable. Cardiology is recommending EP evaluation. EP to see today. DC pending EP recs and finding home health care. Sana Mir MD [facility] CONSULT PROG Observed: 05/09/2025 10:14 AM Status: COMPLETED Source: [facility] ID: [id number] Author: LUCILLE GOMEZ APRN.INDUSTRIAL TECHNOLOGIST Service: Nephrology Author Type: Nurse Practitioner Type: [...] 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, PR, PE, CVA, CHB, colitis, Adjustment Disorder With Depressed Mood, MSSA bacteremia, Proximal Colon Ulcer, Hypothyroidism, Intra-Abdominal Varices, , S/P MAZE procedure, skin ulcers, GERD, YEIMY, DVTs Patient presented to [facility] on 04/20/25 with chief complaint of bloody [...] HD: 2005 -Current HD unit: [facility] -Loading Dock Hand: Dr Melendez -Schedule: Fri-Fri-Fri -Time: 4.5 hrs -EDW: 114 kg -Date of last outpatient dialysis: 04/18/25 -Access: R IJ TDC 04/29/2025 s/p S/p 04/29 venogram , 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 Please DO NOT schedule patient for a nephrology follow up appointment. Kidney care will be provided by the primary member of technical staff at their dialysis unit upon hospital discharge. SIGNATURE: Lucille Gomez APRN.CNP PATIENT NAME: Elia Weston DATE: May 09, 2025 TIME: 10:14 AM PAGER: [phone] FOR AFTER HOUR CONCERNS BETWEEN 5PM - 7AM CONTACT ON-CALL NEPHROLOGY FELLOW [phone] Disclosures: Parts of the current progress note may have been copied from a previous note. PLAN OF CARE Observed: 05/09/2025 9:40 AM Status: COMPLETED Source: [facility] ID: [id number] Author: ARMIDA JOSEPH APRN.INDUSTRIAL TECHNOLOGIST Service: Cardiovascular Medicine Author Type: Nurse Practitioner Type: Plan of Care Filed: 05/09/2025 16:12 Note Text: [facility] CONSULT PROGRESS NOTE (Template ID [id number]) CONSULTING SERVICE: Cardiology: Consult Team PRIMARY SERVICE: [facility] DAY: #18 SUBJECTIVE INTERVAL HISTORY: INR [...] EKG 0819 RA/ CPAP given very long TX interval Mobitz 1 second-degree AV block with [...] obtain MV gradients on today's exam. 08/16/2021 [facility] with normal coronaries INR 2.5-3.5 - goal [...] Observed: 05/09/2025 9:27 AM Status: COMPLETED Source: [facility] ID: [id number] Author: RENÉE MARTINES, PT, DPT Service: Physical Therapy Author Type: Physical Therapist Type: Therapy (PT/OT/Speech/Resp) Filed: 05/09/2025 09:27 Note Text: PHYSICAL THERAPY MISSED VISIT SERVICE DATE: 05/09/2025 SERVICE TIME: 926 ROOM: [place] [address] (Q6-1 Hemodialysis) Patient not seen due to Test / Procedure. SIGNATURE: Renée Martines PT, DPT PATIENT NAME: Elia Weston DATE: May 09, 2025 TIME: 9:27 AM PROGRESS Observed: 05/08/2025 12:31 PM Status: COMPLETED Source: [facility] ID: [id number] Author: BORIS LUU MD Service: Cardiovascular Medicine Author Type: Physician Type: Progress Notes Filed: 05/10/2025 10:23 Note Text: [facility] CONSULT PROGRESS NOTE (Template ID [id number]) CONSULTING SERVICE: Cardiology: Consult Team PRIMARY SERVICE: [...] in setting of mechanical mitral valve and A-ydx-Sibppo INR 2.5-3.5-Wound care re-eval given bleeding? 5. At this point given very long TX interval Mobitz 1 second-degree AV block with risk of further conduction progression as well as chronic SVC occlusive disease would like to consult our electrophysiology allergy team for planning/considerations regarding if patient were to need for pacemaker implantation. I spent 25 minutes in the visit, with more than 50% of the total itlp-gi-tkbr time of the visit in counseling / coordination of care. SIGNATURE: Boris Luu MD PATIENT NAME: Elia Weston DATE: May 08, 2025 TIME: 12:31 PM PROGRESS Observed: 05/08/2025 11:21 AM Status: COMPLETED Source: [facility] ID: [id number] Author: SANA MIR MD Service: General Internal Medicine Author Type: Physician Type: Progress Notes Filed: 05/08/2025 13:28 Note Text: INPATIENT INTERNAL MEDICINE PROGRESS NOTE PATIENT NAME: Elia Weston ; AGE: 6 1980; 45 year old HOSPITAL ROOM: [place] [address] DATE OF SERVICE: 05/08/2025 ATTENDING PHYSICIAN: Sana [...] and Airways Line Duration Peripheral 04/26/25 2100 [facility] Right Forearm 20 Gauge 11 days Dialysis / Apheresis Double Lumen 04/29/25 1005 [facility] Tunneled Right Internal Jugular 9 days Active [...] management of bleeding, and on transfer to [facility], patient began to have significant bleeding from [...] - Follows with Dr. Moreno (cardiology in [place]) for mgmt of Coumadin, will need follow-up [...] #Chronic Hypotension #Secondary Hyperparathyroidism - iHD at [facility] through R. Tunneled HD catheter MWF [...] gtt, INR 3.3 today. Managed by outpatient blanchard grinder operator in [place]. 05/06 noted to have Mobitz 1 with very prolonged TX interval. Echo obtained and has limited views but is largely stable. Cardiology is recommending EP evaluation. EP cannot see until Friday. Plan for EP eval on Friday as well as IHD. DC pending EP recs. Sana Mir MD Associate Staff Hospital Medicine CBC PNL BLD AUTO Collected: 5 3:52 AM Status: F Source: [facility] Order Comment: Specimen Type : BLOOD SPECIMEN Ordering Facility: [facility] Address: [address] [place] [address] TYPE CODE TESTS RESULT OUT OF RANGE [...] RBC Auto-mCnc 30.3 Low 30.5-36.0 g/dL LAB 34178-9(LOINC) RDW RBC-Rto 20.2 High 11.5-15.0 % LAB 777-3(LOINC) Platelet # Bld Auto 194 150-400 k/uL LAB 85838-3([facility]) PMV Bld Auto 12.1 9.0-12.7 fL LAB 771-6(INC) nRBC # Bld Auto <0.01 <0.01 k/uL Performed By: #### 39936-5 # ### [facility] CLIA [id number] [address] [place] [address] [place] [address] [place] RENAL FUNC 2000 PNL SERPL Collected: 3:52 AM Status: F Source: [facility] Order Comment: Specimen Type : BLOOD SPECIMEN Ordering Facility: [facility] Address: [address] [place] [address] TYPE CODE TESTS RESULT OUT OF RANGE REFERENCE UNITS LAB 1751-7(LOINC) Albumin SerPl-mCnc 3.7 Low 3.9-4.9 g/dL LAB 78021-2(LOINC) Calcium SerPl-mCnc 7.9 Low 8.5-10.2 mg/dL LAB 2777-1(LOINC) Phosphate SerPl-mCnc 3.9 2.7-4.8 mg/dL LAB 2345-7(LOINC) Glucose SerPl-mCnc 99 74-99 mg/dL Result Comment: The [place] Diabetes Association (ADA) provides guidance for cutoff [...] Standards of Medical Care in Diabetes 2016, [place] Diabetes Association. Diabetes Care. 2016.39(Suppl 1). LAB 3094-0(LOINC) BUN SerPl-mCnc 24 9-24 mg/dL LAB 2160-0(LOINC) Creat SerPl-mCnc 6.76 High 0.73-1.22 mg/dL LAB 2951-2(LOINC) Sodium SerPl-sCnc 137 136-144 mmol/L LAB 2823-3(LOINC) Potassium SerPl-sCnc 4.4 3.7-5.1 mmol/L LAB 2075-0(LOINC) Chloride SerPl-sCnc 94 Low 98-107 mmol/L LAB 2027-9(LOINC) CO2 SerPl-sCnc 28 22-30 mmol/L LAB 30818-7(LOINC) Anion Gap SerPl-sCnc 15 8-15 mmol/L LAB 58162-4(LOINC) eGFRcr SerPlBld CKD-EPI 2020 10 Low >=60 [...] accurately reflect actual GFR. Performed By: #### 86123-4, 2276-4, 02602-1 #### [facility] CLIA [id number] [address] [place] [address] [place] IRON+TIBC PNL SERPL Collected: 05/08/2025 3:[address] atus: F Source: [facility] Order Comment: Specimen Type : BLOOD SPECIMEN Ordering Facility: [facility] Address: [address] [place] [address] TYPE CODE TESTS RESULT OUT OF RANGE REFERENCE UNITS LAB 2498-4(LOINC) Iron SerPl-mCnc 36 Low 41-186 ug/dL LAB 2500-7(LOINC) TIBC SerPl-mCnc 234 232-386 ug/dL LAB 55098-1(INC) Iron/TIBC SerPl-sRto 15.4 15.0-57.0 % Performed By: #### 76700-2, 2276-4, 99280-6 #### [facility] CLIA [id number] [address] [place] [address] [place] FERRITIN SERPL-MCNC Collected: 05/08/20 3:52 AM Status: F Source: [facility] Order Comment: Specimen Type : BLOOD SPECIMEN Ordering Facility: [facility] Address: [address] [place], [place] [address] TYPE CODE TESTS RESULT OUT OF RANGE REFERENCE UNITS LAB 2276-4(LOINC) Ferritin SerPl-mCnc 996.0 High 30.3-565.7 ng/mL Performed By: #### 37024-0, 2276-4, 10291-2 #### [facility] CLIA [id number] [address] [place], [place] [address] [facility] PT PNL PPP Collected: 05/08/2025 3:52 AM Status: F Source: [facility] Order Comment: Specimen Type : BLOOD SPECIMEN Ordering Facility: [facility] Address: [address] [place] [address] TYPE CODE TESTS RESULT OUT OF RANGE REFERENCE UNITS LAB 5902-2(LOINC) Prothrombin time 33.1 High 9.7-13.0 sec LAB 6301-6(LOINC) INR PPP 3.3 High 0.9-1.3 Result Comment: Vitamin K An tagonist (VKA) Therapeutic Range: INR 2 to 3 (Target INR of 2.5) Note: For patients treated with VKA drugs, such as warfarin, the [place] College of Chest [employer]icians 2012 Guideline recommends [...] JAC 2017, 70: 252-289 Performed By: #### 23067-0 # ### [facility] CLIA [id number] [address] [place] [address] [place] PLAN OF CARE Observed: 05/07/2025 5:37 PM Status: COMPLETED Source: [facility] ID: [id number] Author: JUANI DÍAZ MD Service: General Internal [...] Observed: 05/07/2025 11:33 AM Status: COMPLETED Source: [facility] ID: [id number] Author: BORIS LUU MD Service: Cardiovascular Medicine Author Type: Resident Type: Consult Progress Note Filed: 05/07/2025 12:12 Note Text: Attestation signed by Boris Luu MD at 05/07/2025 12:12 PM [facility] STAFF PHYSICIAN NOTE OF PERSONAL INVOLVEMENT IN [...] in setting of mechanical mitral valve and U-ebw-Lzfqex INR 2.5-3.5 4 On midodrine chronically for hypotension 5. At this point given very long TX interval Mobitz 1 second-degree AV block with [...] CARDIOVASCULAR MEDICINE CONSULT PROGRESS NOTE Elia Weston [id number] PRIMARY SERVICE: Internal Medicine CONSULTING SERVICE: Cardiology Consult A HOSPITAL DAY: # 16 INTERVAL HISTORY - Patient continues to be HDS. Still bradycardiac overnight - Reviewed tele events, 2 events noted as pauses are likely in fact prolonged TX with skipped conduction - Echo reviewed, Preserved [...] heart block. Pertinent Problem List Bradycardia Prolonged TX interval >400 msec Mobitz Type 1 History of CHB post-op He has previous post-op MVR CHB that improved to 1st degree with very long TX before discharge. He had intermittent EKG in the interim 2021-09/2024 alternating between NSR and 1st degree AV block. EKG on admission concerning for accelerated junctional rhythm and one done yesterday showed very prolonged TX intervals and Mobitz 1. Although he reports [...] worsening MV disease. Given his very long TX interval >400 msec, recommends EP evaluation. Recommendations: EP consult given prolonged TX and Mobitz 1 with risk of further [...] Collected: 05/07/2025 5:38 AM Status: F Source: [facility] Order Comment: Specimen Type : BLOOD SPECIMEN Ordering Facility: [facility] Address: [address] [place] [address] TYPE CODE TESTS RESULT OUT OF RANGE REFERENCE UNITS LAB 5902-2(LOINC) Prothrombin time 26.6 High 9.7-13.0 sec LAB 6301-6(LOINC) INR PPP 2.6 High 0.9-1.3 Result Comment: Vitamin K An tagonist (VKA) Therapeutic Range: INR 2 to 3 (Target INR of 2.5) Note: For patients treated with VKA drugs, such as warfarin, the [employer]icians 2012 Guideline recommends [...] Chest 2012, 141:7S-47S Kevin RA, et al. [facility] 2017, 70: 252-289 Performed By: #### 15617-0, 63873-0 #### [facility] CLIA [id number] [address] [place] [address] [place] APTT PPP Collected: 5:38 AM Status: F Source: [facility] Order Comment: Specimen Type : BLOOD SPECIMEN Ordering Facility: [facility] Address: [address] 2388995 TYPE CODE TESTS RESULT OUT OF RANGE REFERENCE UNITS LAB 86131-5(LOINC) aPTT PPP 60.1 High 23.0-32.4 sec Performed By: #### 43122-9, 04797-2 #### [facility] CLIA [id number] [address] [facility] [place] [address] [place] RENAL FUNC 2000 PNL SERPL Collected: 5:38 AM Status: F Source: [facility] Order Comment: Specimen Type : BLOOD SPECIMEN Ordering Facility: [facility] Address: [address] [place] [address] TYPE CODE TESTS RESULT OUT OF RANGE REFERENCE UNITS LAB 1751-7(LOINC) Albumin SerPl-mCnc 3.6 Low 3.9-4.9 g/dL LAB 93131-8(LOINC) Calcium SerPl-mCnc 8.2 Low 8.5-10.2 mg/dL LAB 2777-1(LOINC) Phosphate SerPl-mCnc 3.4 2.7-4.8 mg/dL LAB 2345-7(LOINC) Glucose SerPl-mCnc 83 74-99 mg/dL Result Comment: The [place] Diabetes Association (ADA) provides guidance for cutoff [...] Standards of Medical Care in Diabetes 2016, [place] Diabetes Association. Diabetes Care. 2016.39(Suppl 1). LAB 3094-0(LOINC) BUN SerPl-mCnc 17 9-24 mg/dL LAB 2160-0(LOINC) Creat SerPl-mCnc 4.88 High 0.73-1.22 mg/dL LAB 2951-2(LOINC) Sodium SerPl-sCnc 136 136-144 mmol/L LAB 2823-3(LOINC) Potassium SerPl-sCnc 4.4 3.7-5.1 mmol/L LAB 2075-0(LOINC) Chloride SerPl-sCnc 94 Low 98-107 mmol/L LAB 2027-(LOINC) CO2 SerPl-sCnc 26 22-30 mmol/L LAB 69169-5(LOINC) Anion Gap SerPl-sCnc 16 High 8-15 mmol/L LAB 87439-2(LOINC) eGFRcr SerPlBld CKD-EPI 2020 14 Low >=60 [...] accurately reflect actual GFR. Performed By: #### 40999-6 # ### [facility] CLIA [id number] [address] [place] [address] [place] [facility] CBC PNL BLD AUTO Collected: 5 5:38 AM Status: F Source: [facility] Order Comment: Specimen Type : BLOOD SPECIMEN Ordering Facility: [facility] Address: [address] [place] [address] TYPE CODE TESTS RESULT OUT OF RANGE [...] RBC Auto-mCnc 29.6 Low 30.5-36.0 g/dL LAB 41334-6(LOINC) RDW RBC-Rto 20.5 High 11.5-15.0 % LAB 777-3([facility]) Platelet # Bld Auto 201 150-400 k/uL LAB 26326-4([facility]) PMV Bld Auto 12.4 9.0-12.7 fL LAB 771-6([facility]) nRBC # Bld Auto <0.01 <0.01 k/uL Performed By: #### 52725-6 # ### [facility] CLIA [id number] [address] [place] [address] OF [facility] PROGRESS Observed: 05/07/2025 5:04 AM Status: COMPLETED Source: [facility] HNO ID: [id number] Author: SANA MIR MD Service: General Internal Medicine Author Type: Physician Type: Progress Notes Filed: 05/07/2025 13:25 Note Text: INPATIENT INTERNAL MEDICINE PROGRESS NOTE PATIENT NAME: Elia Weston ; AGE: 6 1980; 45 year old HOSPITAL ROOM: [place] [address] DATE OF SERVICE: 05/07/2025 ATTENDING PHYSICIAN: Sana Mir MD TIME OF [...] and Airways Line Duration Peripheral 04/26/25 2100 [facility] Right Forearm 20 Gauge 10 days Dialysis / Apheresis Double Lumen 04/29/25 1005 [facility] Tunneled Right Internal Jugular 7 days Active [...] management of bleeding, and on transfer to [facility], patient began to have significant bleeding from [...] - Follows with Dr. Moreno (cardiology in [place]) for mgmt of Coumadin, will need follow-up [...] #Chronic Hypotension #Secondary Hyperparathyroidism - iHD at [facility] through R. Tunneled HD catheter MWF [...] gtt, INR 2.6 today. Managed by outpatient blanchard grinder operator in [place]. 05/06 noted to have Mobitz 1 with very prolonged TX interval. Echo obtained and has limited views but is largely stable. Cardiology is recommending EP evaluation. EP cannot see until Friday. Plan for EP eval on Friday as well as IHD. DC pending EP recs. Sana Mir MD Associate Staff [facility] Medicine PROGRESS Observed: 05/07/2025 2:22 AM Status: COMPLETED Source: [facility] HNO ID: [id number] Author: NOTE, INTERFACE, ? Service: ? Author Type: ? Type: Progress Notes Filed: 05/07/2025 15:49 Note Text: Epic Scheduled Downtime: 05/07/2025 1:00:00 AM to 05/07/2025 2:17:00 AM PTT, ANTICOAGULANT THERAPY Collected: 0 05/06/2025 10:43 PM Status: F Source: [facility] Order Comment: Specimen Type : BLOOD SPECIMEN Ordering Facility: [facility] Address: [address] [place] [address] TYPE CODE TESTS RESULT OUT OF RANGE REFERENCE UNITS LAB 19774-0(LOINC) aPTT PPP 55.4 High 23.0-32.4 sec Performed By: #### PTTAC ### # [facility] CLIA [id number] [address] [place], [place] [address] [place] [address] [place] NURSING PROG Observed: 05/06/2025 9:47 PM Status: COMPLETED Source: [facility] HNO ID: [id number] Author: CURTIS HARRIS RN Service: Nursing Author Type: Registered Nurse Type: Nursing Progress Note Filed: 05/06/2025 21:48 Note Text: Summary: Woundcare 2147-pt requests to have woundcare done tomorrow. 05/07/25. ECHO Observed: 05/06/2025 3:50 PM Status: F Source: [facility] Echocardiography Report: Tra nsthoracic Echo Main [place] Bedside Date of service: 05/06/2025 3:50:06 PM STAMPER Ordering physician: ANA DALEY Exam indication: Abnormal [...] * * Final * * * CC [employer] [facility] : [id number] THERAPY NT Observed: 05/06/2025 3:48 PM Status: COMPLETED [facility]: [id number] Author: RENÉE MARTINES, PT, DPT Service: Physical Therapy Author Type: Physical Therapist Type: Therapy (PT/OT/Speech/Resp) Filed: 05/06/2025 15:53 Note Text: Physical Therapy Treatment Summary SERVICE DATE: 05/06/2025 SERVICE TIME: 1525 to 1548 ROOM: [place] [address] PT 6 Clicks Score: 17 DISCHARGE RECOMMENDATIONS: [...] Within Functional Limits 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 CLIA [id number] [address] [place] [address] STATES [facility] CONSULT PROG Observed: 05/06/2025 12:14 PM Status: COMPLETED Source: [facility] HNO ID: [id number] Author: KIMBERLY LYNN APRN.INDUSTRIAL TECHNOLOGIST Service: Wound Care Team Author Type: Nurse [...] to see patient however was told by workday consultant that he could not turn for assessment [...] again at a future date. Kimberly Lynn APRN.INDUSTRIAL TECHNOLOGIST CONSULT Observed: 05/06/2025 12:07 PM Status: COMPLETED Source: [facility] HNO ID: [id number] Author: BORIS LUU MD Service: Cardiovascular Medicine Author Type: Resident Type: Consults Filed: 05/06/2025 13:38 Note Text: Attestation signed by Boris Luu MD at 05/06/2025 1:38 PM [facility] STAFF PHYSICIAN NOTE OF PERSONAL INVOLVEMENT IN [...] in setting of mechanical mitral valve and R-gex-Ojpdks INR 2.5-3.5 On midodrine chronically for hypotension At this point given very long TX interval Mobitz 1 second-degree AV block with [...] [facility] CARDIOVASCULAR MEDICINE CONSULT NOTE (Template ID [id number]) Elia Weston [id number] PRIMARY SERVICE: Internal Medicine CONSULTING SERVICE: Cardiovascular Medicine: General Consults DATE OF ADMISSION: 04/20/2025 DATE OF CONSULT: 05/06/2025 REASON FOR CONSULT Mobitz type 1 second-degree block HISTORY OF PRESENT ILLNESS Elia Weston is a 45 year old male with MS s/p mechanical MVR c/b CHB (resolved without PPM), CAD s/p CABG, atrial fibrillation s/p maze procedure and RADHA clip, ESRD on HD ([facility]), SVC syndrome, and multiple thromboses who [...] Anemia of chronic disorder Anuria Atrial fibrillation ([facility]) 12/02/2018 on Coumadin and Amiodarone BMI 40.0-44.9, adult ([facility]) ESRD (end stage renal disease) on dialysis ([facility]) 2005 ESRD from HTN Dialysis M,W,F [facility] [phone] Essential hypertension, benign 1998 EKG 09/30 NL. Hearing loss of both ears History of mitral valve stenosis Hx of bacterial endocarditis Hyperparathyroidism due to end stage renal disease on dialysis ([facility]) Kidney disease 2005 ESRD due to HTN; on IHD since 2005 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 and scoliosis h/o this 3 y. Dx by xray. Mechanical complication of arteriovenous fistula surgically created ([facility]) Mechanical complication of dialysis catheter (HCC) Mitral valve disease Morbid obesity (HCC) MS (mitral stenosis) 10/08/2018 Transesophageal US YEIMY on CPAP Paroxysmal atrial fibrillation (HCC) PE (pulmonary thromboembolism) (HCC) Pelvic mass Pseudoaneurysm of AV hemodialysis fistula (HCC) Wound of right side of back from friction/rubbing of jacket, goes to wound care center in [place] PAST SURGICAL HISTORY Procedure Laterality Date ARTERIOVENOUS FISTULA Left 08/29/2010 CAPSULE ENDOSCOPY 07/01/2023 CARDIOVERSION-ELECTIVE N/A 12/03/2018 200 joules synchronized - successful COLONOSCOPY 07/01/2023 EGD 06/27/2023 HERNIA REPAIR HX PAST SURGICAL HISTORY OF 08/29/2010 dialysis fistula left arm PAST SURGICAL HISTORY OF Right 03/2019 Right leg femoral vein to superficial femoral artery loop graft mid thigh REPAIR CLEFT LIP RMVL LEANN CVC W/O SUBQ PORT/BANQUET STEWARDESS 01/17/2013 SHX CARDIAC RADIOFREQUENCY ABLATION 08/21/2021 s/p [...] requiring PPM. More concerning is the chronic TX prolongation to 300-400 ms also present on [...] with 1st degree block with very prolonged TX 350. He has multiple EKG in 2021- with NSR. EKG on this admission 04/21 with accelerated junctional rhythm. Given bradycardia, an EKG done yesterday showed Mobitz 1 with very prolonged TX. Patient confirms he is asymptomatic, denying dyspnea, [...] heart block. Pertinent Problem List Bradycardia Prolonged TX interval >400 msec Mobitz Type 1 History of CHB post-op He has previous post-op MVR CHB that improved to 1st degree with very long TX before discharge. He had intermittent EKG in the interim 2021-09/2024 alternating between NSR and 1st degree AV block. EKG on admission concerning for accelerated junctional rhythm and one done yesterday showed very prolonged TX intervals and Mobitz 1. Although he reports [...] worsening MV disease. Given his very long TX interval >400 msec, recommends EP evaluation. RECOMMENDATIONS Recommend EP consult given very prolonged TX interval and Hx of block Obtain echocardiogram to rule out structural etiologies of prolonged TX interval and heart block Update TSH and T3, T4 levels Thank you for this consult. Case discussed with staff Dr Luu. Michael Jacinto MD PGY-2 Internal Medicine Resident CONSULT PROG Observed: 05/06/2025 11:06 AM Status: COMPLETED Source: [facility] ID: [id number] Author: LUCILLE GOMEZ APRN.MIKI Service: Nephrology Author [...] 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, PR, PE, CVA, CHB, colitis, Adjustment Disorder With Depressed Mood, MSSA bacteremia, Proximal Colon Ulcer, Hypothyroidism, Intra-Abdominal Varices, , S/P MAZE procedure, skin ulcers, GERD, YEIMY, DVTs Patient presented to [facility] on 04/[facility]/25 with chief complaint of [...] of first HD: 2005 -Current HD unit: [facility] -Loading Dock Hand: Dr Melendez -Schedule: Fri-Fri-Fri -Time: 4.5 hrs -EDW: 114 kg -Date of last outpatient dialysis: 04/18/25 -Access: R IJ TDC 04/29/2025 s/p S/p 04/29 venogram , 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 Please DO NOT schedule patient for a nephrology follow up appointment. Kidney care will be provided by the primary member of technical staff at their dialysis unit upon hospital discharge. SIGNATURE: Lucille Rosanna, HORSE BREEDER.INDUSTRIAL TECHNOLOGIST PATIENT NAME: Elia Weston DATE: May 06, 2025 TIME: 11:07 AM PAGER: [phone] FOR AFTER HOUR CONCERNS BETWEEN 5PM - 7AM CONTACT ON-CALL NEPHROLOGY FELLOW [phone] Disclosures: Parts of the current progress note may have been copied from a previous note. THERAPY NT Observed: 05/06/2025 9:40 AM Status: COMPLETED Source: [facility] HNO ID: [id number] Author: RENÉE MARTINES PT, SHAHAB Service: Physical Therapy Author Type: Physical Therapist Type: Therapy (PT/OT/Speech/Resp) Filed: 05/06/2025 10:37 Note Text: PHYSICAL THERAPY MISSED VISIT SERVICE DATE: 05/06/2025 SERVICE TIME: 939 ROOM: [place] [address] (6-1 Hemodialysis) Patient not seen due to Test / Procedure. SIGNATURE: Renée Martines PT, DPT PATIENT NAME: Elia Weston DATE: May 06, 2025 TIME: 9:40 AM RENAL FUNC 2000 PNL SERPL Collected: 8:56 AM Status: F Source: [facility] Order Comment: Specimen Type : BLOOD SPECIMEN Ordering Facility: [facility] Address: [address] [place] [address] TYPE CODE TESTS RESULT OUT OF RANGE REFERENCE UNITS LAB 1751-7(LOINC) Albumin SerPl-mCnc 3.4 Low 3.9-4.9 g/dL LAB 09006-0(LOINC) Calcium SerPl-mCnc 7.7 Low 8.5-10.2 mg/dL LAB 2777-1(LOINC) Phosphate SerPl-mCnc 5.4 High 2.7-4.8 mg/dL LAB 2345-7(LOINC) Glucose SerPl-mCnc 90 74-99 mg/dL Result Comment: The [place] Diabetes Association (ADA) provides guidance for cutoff [...] Standards of Medical Care in Diabetes 2016, [place] Diabetes Association. Diabetes Care. 2016.39(Suppl 1). LAB 3094-0(LOINC) BUN SerPl-mCnc 32 High 9-24 mg/dL LAB 2160-0(LOINC) Creat SerPl-mCnc 7.53 High 0.73-1.22 mg/dL LAB 2951-2(LOINC) Sodium SerPl-sCnc 138 136-144 mmol/L LAB 2823-3(LOINC) Potassium SerPl-sCnc 4.7 3.7-5.1 mmol/L LAB 2075-0(LOINC) Chloride SerPl-sCnc 96 Low 98-107 mmol/L LAB 2027-9(LOINC) CO2 SerPl-sCnc 26 22-30 mmol/L LAB 99963-3(LOINC) Anion Gap SerPl-sCnc 16 High 8-15 mmol/L LAB 66366-7(LOINC) eGFRcr SerPlBld CKD-EPI 2020 8 Low >=60 [...] accurately reflect actual GFR. Performed By: #### 34348-0, 3016-3, 3024-7 #### [facility] CLIA [id number] [address] [place] [address] [place] T4 FREE SERPL-MCNC Collected: 05/06/2025 8:56 AM Sta tus: F Source: [facility] Order Comment: Specimen Type : BLOOD SPECIMEN Ordering Facility: [facility] Address: [address] [place] [address] TYPE CODE TESTS RESULT OUT OF RANGE REFERENCE UNITS LAB 3024-7(LOINC) T4 Free SerPl-mCnc 1.4 0.9-1.7 ng/dL Performed By: #### 55696-5, 3016-3, 302-7 #### [facility] CLIA [id number] [address] [place] [address] TSH SERPL-ACNC Collected: 5 8:56 AM Status: F Source: [facility] Order Comment: Specimen Type : BLOOD SPECIMEN Ordering Facility: [facility] Address: [address] [place] [address] TYPE CODE TESTS RESULT OUT OF RANGE REFERENCE UNITS LAB 3016-3([facility]) TSH SerPl-aCnc 15.600 High 0.270-4.200 mIU/L Performed By: #### 69523-4, 3016-3, 7 #### [facility] CLIA [id number] [address] [place] [address] CBC PNL BLD AUTO Collected: 5 8:56 AM Status: F Source: [facility] Order Comment: Specimen Type : BLOOD SPECIMEN Ordering Facility: [facility] Address: [address] [place] [address] TYPE CODE TESTS RESULT OUT OF RANGE [...] RBC Auto-mCnc 30.4 Low 30.5-36.0 g/dL LAB 70864-8(LOINC) RDW RBC-Rto 20.1 High 11.5-15.0 % LAB 777-3([facility]) Platelet # Bld Auto 194 150-400 k/uL LAB 41186-8([facility]) PMV Bld Auto 12.0 9.0-12.7 fL LAB 771-6([facility]) nRBC # Bld Auto <0.01 <0.01 k/uL Performed By: #### 84356-4 # ### [facility] CLIA [id number] [address] [place] [address] STATES OF [facility] PT PNL PPP Collected: 05/06/2025 8:56 AM Status: F Source: [facility] Order Comment: Specimen Type : BLOOD SPECIMEN Ordering Facility: [facility] Address: [address] [place] [address] TYPE CODE TESTS RESULT OUT OF RANGE REFERENCE UNITS LAB 5902-2([facility]) Prothrombin time 23.1 High 9.7-13.0 sec LAB 6301-6([facility]) INR PPP 2.3 High 0.9-1.3 Result Comment: Vitamin K An tagonist (VKA) Therapeutic Range: INR 2 to 3 (Target INR of 2.5) Note: For patients treated with VKA drugs, such as warfarin, the [place] College [employer]icians 2012 Guideline recommends [...] Chest 2012, 141:7S-47S Kevin RUSHING et al. [facility] 2017, 70: 252-289 Performed By: #### 20855-8, PTTAC #### [facility] CLIA [id number] [address] [place] [address] PTT, ANTICOAGULANT THERAPY Collected: 0 05/06/2025 8:56 AM Status: F Source: [facility] Order Comment: Specimen Type : BLOOD SPECIMEN Ordering Facility: [facility] Address: [address] [place] [address] TYPE CODE TESTS RESULT OUT OF RANGE REFERENCE UNITS LAB 91015-5(LOINC) aPTT PPP 69.8 High 23.0-32.4 sec Performed By: #### 76129-0, PTTAC #### [facility] CLIA [id number] [address] [place] [address] PROGRESS Observed: 05/06/2025 5:02 AM Status: COMPLETED Source: [facility] HNO ID: [id number] Author: ANA DALEY MD Service: General Internal Medicine Author Type: Resident Type: Progress Notes Filed: 05/06/2025 18:13 Note Text: Attestation signed by Ana Daley MD at 05/06/2025 6:13 PM [facility] STAFF PHYSICIAN NOTE OF PERSONAL INVOLVEMENT IN [...] TID, Anemia of CKD and recent admission ([facility] 02/16/2025 - ) for R Chest wall [...] 10 mg -Per patient , has established blanchard grinder operator locally who monitors his INR closely and plans to follow up with same physician for INR check on discharge -Cardiology consulted: recommended Echo and EP consult # Chronic hypotension, on home midodrine 20 mg TID DISPO: Once INR is therapeutic (Goal 2.5-3.5) Discussed plan of care with patient. Dr. Sana Mir will assume care of patients starting tomorrow. SIGNATURE: Ana Daley MD, FACP, [facility] DATE of SERVICE: May 06, 2025 INPATIENT INTERNAL MEDICINE PROGRESS NOTE PATIENT NAME: Elia Weston ; AGE: 6 1980; 45 year old H[address] DATE OF SERVICE: 05/06/2025 ATTENDING PHYSICIAN: [...] and Airways Line Duration Peripheral 04/26/25 2100 [facility] Right Forearm 20 Gauge 9 days Dialysis / Apheresis Double Lumen 04/29/25 1005 [facility] Tunneled Right Internal Jugular 6 days Active [...] wound of left chest wall Ulcers, venous ([facility]) Status post Maze operation for atrial fibrillation [...] - Follows with Dr. Moreno (cardiology in [place]) for mgmt of Coumadin, will need follow-up [...] #Chronic Hypotension #Secondary Hyperparathyroidism - iHD at [facility] through R. Tunneled HD catheter MWF - Last dialysis session Friday04/18/2025; missed Fri session because he presented to [facility] ED - anuric at baseline per [...] 05/05/2025 6:13 PM Statu s: F Source: [facility] Order Comment: Specimen Type : BLOOD SPECIMEN Ordering Facility: [facility] Address: [address] [place] [address] TYPE CODE TESTS RESULT OUT OF RANGE REFERENCE UNITS LAB 4544-3(LOINC) Hct VFr Bld Auto 32.0 Low 39.0-51.0 % Performed By: #### 4544-3, 7 18-7 #### [facility] CLIA [id number] [address] [place], [place] [address] [facility] HGB BLD-MCNC Collected: 05/05/2025 6:13 PM Status: F Source: [facility] Order Comment: Specimen Type : BLOOD SPECIMEN Ordering Facility: [facility] Address: [address] [place] [address] TYPE CODE TESTS RESULT OUT OF RANGE REFERENCE UNITS LAB 718-7(LOINC) Hgb Bld-mCnc 9.5 Low 13.0-17.0 g/dL Performed By: #### 4544-3, 7 #### [facility] CLIA [id number] [address] [place] [address] PROGRESS Observed: 05/05/2025 3:28 PM Status: COMPLETED Source: [facility] HNO ID: [id number] Author: ?, ?, ? Service: Nephrology Author Type: ? Type: Progress Notes Filed: 05/05/2025 15:29 Note Text: DIALYSIS PLACEMENT NOTE Confirmed patient's IHD schedule with established outpatient dialysis unit. He is able to resume schedule when discharged. Facility: [facility] ([address] [address]) Days: Mon/Fri/Fri Chair Time: 9:00 AM Loading Dock Hand: Dr. Melendez Signature: Bj Rico Patient Name: Elia Weston Date: May 05, 2025 Time: 3:28 PM CONSULT PROG Observed: 05/05/2025 11:39 AM Status: COMPLETED Source: [facility] HNO ID: [id number] Author: KIMBERLY LYNN APRN.INDUSTRIAL TECHNOLOGIST Service: Wound Care Team Author Type: Nurse [...] again at a future date. Kimberly Lynn APRN.INDUSTRIAL TECHNOLOGIST PT PNL PPP Collected: 05/05/2025 5:52 AM Status: F Source: [facility] Order Comment: Specimen Type : BLOOD SPECIMEN Ordering Facility: [facility] Address: [address] [place] [address] TYPE CODE TESTS RESULT OUT OF RANGE REFERENCE UNITS LAB 5902-2(LOINC) Prothrombin time 20.1 High 9.7-13.0 sec LAB 6301-6(LOINC) INR PPP 1.9 High 0.9-1.3 Result Comment: Vitamin K An tagonist (VKA) Therapeutic Range: INR 2 to 3 (Target INR of 2.5) Note: For patients treated with VKA drugs, such as warfarin, the [place] [employer]icians 2012 Guideline recommends [...] JACC 2017, 70: 252-289 Performed By: #### 50434-7, PTTAC #### [facility] CLIA [id number] [address] [place], [place] [address] [address] [place] PTT, ANTICOAGULANT THERAPY Collected: 0 05/05/2025 5:52 AM Status: F Source: [facility] Order Comment: Specimen Type : BLOOD SPECIMEN Ordering Facility: [facility] Address: [address] [place], [place] [address] TYPE CODE TESTS RESULT OUT OF RANGE REFERENCE UNITS LAB 47091-2([facility]) aPTT PPP 60.1 High 23.0-32.4 sec Performed By: #### 87719-1, PTTAC #### [facility] CLIA [id number] [address] [place], [place] [address] [place] CBC PNL BLD AUTO Collected: 5 5:51 AM Status: F Source: [facility] Order Comment: Specimen Type : BLOOD SPECIMEN Ordering Facility: [facility] Address: [address] [place] [address] TYPE CODE TESTS RESULT OUT OF RANGE REFERENCE UNITS LAB 6690-2([facility]) WBC # Bld Auto 5.68 3.70-11.00 k/uL LAB 789-8(INC) RBC # Bld Auto 3.02 Low 4.20-6.00 m/uL LAB 718-7(INC) Hgb Bld-mCnc 8.4 Low 13.0-17.0 g/dL LAB 4544-3([facility]) Hct VFr Bld Auto 28.0 Low 39.0-51.0 % LAB 787-2(INC) MCV RBC Auto 92.7 80.0-100.0 fL LAB 785-6(INC) MCH RBC Qn Auto 27.8 26.0-34.0 pg LAB 786-4([facility]) MCHC RBC Auto-mCnc 30.0 Low 30.5-36.0 g/dL LAB 58750-3([facility]) RDW RBC-Rto 19.9 High 11.5-15.0 % LAB 777-3([facility]) Platelet # Bld Auto 223 150-400 k/uL LAB 44566-5([facility]) PMV Bld Auto 12.1 9.0-12.7 fL LAB 771-6([facility]) nRBC # Bld Auto <0.01 <0.01 k/uL Performed By: #### 00782-6 # ### [facility] CLIA [id number] [address] [place], [place] [address] [place] [address] [place] RENAL FUNC 2000 PNL SERPL Collected: 5:51 AM Status: F Source: [facility] Order Comment: Specimen Type : BLOOD SPECIMEN Ordering Facility: [facility] Address: [address] [place] [address] TYPE CODE TESTS RESULT OUT OF RANGE REFERENCE UNITS LAB 1751-7(LOINC) Albumin SerPl-mCnc 3.4 Low 3.9-4.9 g/dL LAB 09568-1(LOINC) Calcium SerPl-mCnc 8.1 Low 8.5-10.2 mg/dL LAB 2777-1(LOINC) Phosphate SerPl-mCnc 4.1 2.7-4.8 mg/dL LAB 2345-7(LOINC) Glucose SerPl-mCnc 93 74-99 mg/dL Result Comment: The [place] Diabetes Association (ADA) provides guidance for cutoff [...] Standards of Medical Care in Diabetes 2016, [place] Diabetes Association. Diabetes Care. 2016.39(Suppl 1). LAB 3094-0(LOINC) BUN SerPl-mCnc 21 9-24 mg/dL LAB 2160-0(LOINC) Creat SerPl-mCnc 5.29 High 0.73-1.22 mg/dL LAB 2951-2(LOINC) Sodium SerPl-sCnc 137 136-144 mmol/L LAB 2823-3(LOINC) Potassium SerPl-sCnc 4.3 3.7-5.1 mmol/L LAB 2075-0(LOINC) Chloride SerPl-sCnc 94 Low 98-107 mmol/L LAB 2028-9(LOINC) CO2 SerPl-sCnc 28 22-30 mmol/L LAB 95882-5(LOINC) Anion Gap SerPl-sCnc 15 8-15 mmol/L LAB 48423-9(LOINC) eGFRcr SerPlBld CKD-EPI 2020 13 Low >=60 [...] accurately reflect actual GFR. Performed By: #### 61779-4, 50601-9 #### [facility] CLIA [id number] [address] [place] [address] OF [facility] MAGNESIUM SERPL-MCNC Collected: 05/05/2025 5:51 AM S tatus: F Source: [facility] Order Comment: Specimen Type : BLOOD SPECIMEN Ordering Facility: [facility] Address: [address] [place] [address] TYPE CODE TESTS RESULT OUT OF RANGE REFERENCE UNITS LAB 22561-0([facility]) Magnesium SerPl-mCnc 2.2 1.7-2.3 mg/dL Performed By: #### 65912-8, 37363-0 #### [facility] CLIA [id number] [address] [place] [address] OF [facility] PROGRESS Observed: 05/05/2025 5:07 AM Status: COMPLETED Source: [facility] HNO ID: [id number] Author: ANA DALEY MD Service: General Internal Medicine Author Type: Resident Type: Progress Notes Filed: 05/05/2025 17:12 Note Text: Attestation signed by Ana Daley MD at 05/05/2025 5:12 PM [facility] STAFF PHYSICIAN NOTE OF PERSONAL INVOLVEMENT IN [...] TID, Anemia of CKD and recent admission ([facility] 02/16/2025 - ) for R Chest wall [...] 10 mg -Per patient , has established blanchard grinder operator locally who monitors his INR closely and plans to follow up with same physician for INR check on discharge -check EKG # Chronic hypotension, on home midodrine 20 mg TID DISPO: Once INR is therapeutic (Goal 2.5-3.5) Discussed plan of care with patient. SIGNATURE: Ana Daley MD, [facility], [facility] DATE of SERVICE: May 05, 2025 INPATIENT INTERNAL MEDICINE PROGRESS NOTE PATIENT NAME: Elia Weston ; AGE: 6 1980; 45 year old [address] DATE OF SERVICE: 05/05/2025 ATTENDING PHYSICIAN: [...] and Airways Line Duration Peripheral 04/26/25 2100 [facility] Right Forearm 20 Gauge 8 days Dialysis / Apheresis Double Lumen 04/29/25 1005 [facility] Tunneled Right Internal Jugular 5 days Active [...] management of bleeding, and on transfer to [facility], patient began to have significant bleeding from [...] - Follows with Dr. Moreno (cardiology in [place]) for mgmt of Coumadin, will need follow-up [...] #Chronic Hypotension #Secondary Hyperparathyroidism - iHD at [facility] through R. Tunneled HD catheter MWF - [...] Observed: 05/04/2025 5:04 PM Status: COMPLETED Source: [facility] HNO ID: [id number] Author: RENÉE MARTINES PT DPT Service: Physical Therapy Author Type: Physical Therapist Type: Therapy (PT/OT/Speech/Resp) Filed: 05/04/2025 17:04 Note Text: PHYSICAL THERAPY MISSED VISIT SERVICE DATE: 05/04/2025 SERVICE TIME: 1704 ROOM: [place] [address] Patient not seen due to Patient Not Available. Second attempt this date patient sleeping soundly and did not arouse to voice or tactile stimuli. PT to follow up with patient as able. SIGNATURE: Renée Martines PT, DPT PATIENT NAME: Elia Weston DATE: May 04, 2025 TIME: 5:04 PM CASE MANAGEM Observed: 05/04/2025 12:17 PM Status: COMPLETED Source: [facility] HNO ID: [id number] Author: MARIA T MARINA LSW Service: Care Management Author Type: Water Supply Technician Type: Care Mgt Progress Note Filed: 05/04/2025 12:19 Note Text: CARE MANAGEMENT PROGRESS NOTE SERVICE DATE: 05/04/2025 SERVICE TIME: 12:17 PM LOS: 13 days Post-Acute Discharge Planning Patient Goal(s): Be able to go home, General wellness [place] Explained: [place] Given: Yes Discharge Planning Participant(s): [...] Observed: 05/04/2025 11:21 AM Status: COMPLETED Source: [facility] HNO ID: [id number] Author: KIMBERLY LYNN APRN.CNP Service: Wound Care [...] again at a future date. Kimberly Lynn APRN.INDUSTRIAL TECHNOLOGIST THERAPY NT Observed: 05/04/2025 10:27 AM Status: COMPLETED Source: [facility] HNO ID: [id number] Author: RENÉE MARTINES PT, DPRolan Service: Physical Therapy Author Type: Physical Therapist Type: Therapy (PT/OT/Speech/Resp) Filed: 05/04/2025 11:25 Note Text: PHYSICAL THERAPY MISSED VISIT SERVICE DATE: 05/04/2025 SERVICE TIME: 1027 ROOM: [place] [address] (Q6-1 Hemodialysis) Patient not seen due to Test / Procedure SIGNATURE: Renée Martines PT, DPT PATIENT NAME: Elia Weston DATE: May 04, 2025 TIME: 10:27 AM CONSULT PROG Observed: 05/04/2025 10:22 AM Status: COMPLETED Source: [facility] HNO ID: [id number] Author: LUCILLE GOMEZ APRN.INDUSTRIAL TECHNOLOGIST Service: Nephrology Author Type: Nurse Practitioner Type: [...] 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, PR, PE, CVA, CHB, colitis, Adjustment Disorder With Depressed Mood, MSSA bacteremia, Proximal Colon Ulcer, Hypothyroidism, Intra-Abdominal Varices, , S/P MAZE procedure, skin ulcers, GERD, YEIMY, DVTs Patient presented to [facility] on 04/20/25 with chief complaint of bloody [...] of first HD: 2005 -Current HD unit: [facility] -Loading Dock Hand: Dr Melendez -Schedule: Fri-Fri-Fri -Time: 4.5 hrs -EDW: 114 kg -Date of last outpatient dialysis: 04/18/25 -Access: R IJ TDC 04/29/2025 s/p S/p 04/29 venogram , 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 Please DO NOT schedule patient for a nephrology follow up appointment. Kidney care will be provided by the primary member of technical staff at their dialysis unit upon hospital discharge. SIGNATURE: Lucille Gomez APRN.CNP PATIENT NAME: Elia Weston DATE: May 04, 2025 TIME: 10:23 AM PAGER: [phone] FOR AFTER HOUR CONCERNS BETWEEN 5PM - 7AM CONTACT ON-CALL NEPHROLOGY FELLOW [phone] Disclosures: Parts of the current progress note may have been copied from a previous note. PROGRESS Observed: 05/04/2025 5:33 AM Status: COMPLETED Source: [facility] HNO ID: [id number] Author: ANA DALEY MD Service: General Internal Medicine Author Type: Resident Type: Progress Notes Filed: 05/04/2025 18:46 Note Text: Attestation signed by Ana Daley MD at 05/04/2025 6:46 PM [facility] STAFF PHYSICIAN NOTE OF PERSONAL INVOLVEMENT IN [...] TID, Anemia of CKD and recent admission ([facility] 02/16/2025 - ) for R Chest wall [...] 7.5 mg -Per patient , has established blanchard grinder operator locally who monitors his INR closely and plans to follow up with same physician for INR check on discharge # Chronic hypotension, on home midodrine 20 mg TID DISPO: Once INR is therapeutic (Goal 2.5-3.5) Discussed plan of care with patient. SIGNATURE: Ana Daley MD, [facility], [facility] DATE of SERVICE: May 04, 2025 INPATIENT [...] and Airways Line Duration Peripheral 04/26/25 2100 [facility] Right Forearm 20 Gauge 7 days Dialysis / Apheresis Double Lumen 04/29/25 1005 [facility] Tunneled Right Internal Jugular 4 days Active [...] management of bleeding, and on transfer to [facility], patient began to have significant bleeding from [...] - Follows with Dr. Moreno (cardiology in [place]) for mgmt of Coumadin, will need follow-up outpatient #ESRD on HD via Right TDC #Chronic Hypotension #Secondary Hyperparathyroidism - iHD at [facility] through R. Tunneled HD catheter MWF - [...] Collected: 05/04/2025 4:06 AM Status: F Source: [facility] Order Comment: Specimen Type : BLOOD SPECIMEN Ordering Facility: [facility] Address: [address] [place] [address] TYPE CODE TESTS RESULT OUT OF RANGE REFERENCE UNITS LAB 5902-2(LOINC) Prothrombin time 19.3 High 9.7-13.0 sec LAB 6301-6(LOINC) INR PPP 1.9 High 0.9-1.3 Result Comment: Vitamin K An tagonist (VKA) Therapeutic Range: INR 2 to 3 (Target INR of 2.5) Note: For patients treated with VKA drugs, such as warfarin, the [place] College of [employer]icians 2012 Guideline recommends [...] JAC 2017, 70: 252-289 Performed By: #### 10693-8, PTTAC #### [facility] CLIA [id number] [address] [place], [place] [address] [facility] PTT, ANTICOAGULANT THERAPY Collected: 0 05/04/2025 4:06 AM Status: F Source: [facility] Order Comment: Specimen Type : BLOOD SPECIMEN Ordering Facility: [facility] Address: [address] [place] [address] TYPE CODE TESTS RESULT OUT OF RANGE REFERENCE UNITS LAB 88579-2(LOINC) aPTT PPP 55.8 High 23.0-32.4 sec Performed By: #### 05117-1, PTTAC #### [facility] CLIA [id number] [address] [place], [place] [address] [facility] RENAL FUNC 2000 PNL SERPL Collected: 4:06 AM Status: F Source: [facility] Comment: Specimen Type : BLOOD SPECIMEN Ordering Facility: [facility] Address: [address] [place] [address] TYPE CODE TESTS RESULT OUT OF RANGE REFERENCE UNITS LAB 1751-7(LOINC) Albumin SerPl-mCnc 3.7 Low 3.9-4.9 g/dL LAB 40746-8(LOINC) Calcium SerPl-mCnc 7.7 Low 8.5-10.2 mg/dL LAB 2777-1(LOINC) Phosphate SerPl-mCnc 4.6 2.7-4.8 mg/dL LAB 2345-7(LOINC) Glucose SerPl-mCnc 109 High 74-99 mg/dL Result Comment: The [place] Diabetes Association (ADA) provides guidance for cutoff [...] Standards of Medical Care in Diabetes 2016, [place] Diabetes Association. Diabetes Care. 2016.39(Suppl 1). LAB 3094-0(LOINC) BUN SerPl-mCnc 34 High 9-24 mg/dL LAB 2160-0(LOINC) Creat SerPl-mCnc 7.02 High 0.73-1.22 mg/dL LAB 2951-2(LOINC) Sodium SerPl-sCnc 136 136-144 mmol/L LAB 2823-3(LOINC) Potassium SerPl-sCnc 5.0 3.7-5.1 mmol/L LAB 2075-0(LOINC) Chloride SerPl-sCnc 93 Low 98-107 mmol/L LAB 2027-9(LOINC) CO2 SerPl-sCnc 24 22-30 mmol/L LAB 25861-2(LOINC) Anion Gap SerPl-sCnc 19 High 8-15 mmol/L LAB 79038-4(LOINC) eGFRcr SerPlBld CKD-EPI 2020 9 Low >=60 [...] accurately reflect actual GFR. Performed By: #### 76457-0 # ### [facility] CLIA [id number] [address] [place] [address] [place] CBC PNL BLD AUTO Collected: 5 4:05 AM Status: F Source: [facility] Order Comment: Specimen Type : BLOOD SPECIMEN Ordering Facility: [facility] Address: [address] [place] [address] TYPE CODE TESTS RESULT OUT OF RANGE [...] MCHC RBC Auto-mCnc 30.5 30.5-36.0 g/dL LAB 55072-7(LOINC) RDW RBC-Rto 20.0 High 11.5-15.0 % LAB 777-3(LOINC) Platelet # Bld Auto 240 150-400 k/uL LAB 05425-2(LOINC) PMV Bld Auto 12.0 9.0-12.7 fL LAB 771-6(LOINC) nRBC # Bld Auto <0.01 <0.01 k/uL Performed By: #### 00330-0 # ### 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 Has been sleeping in recliner 2/2 to pain. (+) driving SUBJECTIVE Patient pleasant and agreeable to PT. THERAPY DIAGNOSIS Reduced mobility-other, Muscle Weakness (generalized), General symptoms and signs-other TREATMENT INTERVENTIONS Therapeutic Activity (80009), Gait Training (02333) Timed Code Treatment (minutes): 38 Skilled Treatment [...] Observed: 05/03/2025 1:33 PM Status: COMPLETED Source: [facility] HNO ID: [id number] Author: JARVIS SAUCEDO MD, PhD Service: Dermatology [...] proliferation, immunohistochemical staining is performed at the [facility] on block A1 with appropriate controls. [...] pain with these Patient discussed with attending price checker, Dr. Donald Beltran MD Dermatology PGY-3 05/03/2025 1:33 PM Please use consult pager [phone], Mon-Fri 8am-5pm. Please call electric truck crane operator for on-call resident/pager during all other hours. I agree with the Chief Complaint, ROS, and Past Histories independently gathered by the clinical learning support resource room teacher and the remaining scribed note accurately describes [...] Observed: 05/03/2025 12:02 PM Status: COMPLETED Source: [facility] HNO ID: [id number] Author: NABILA CHARLES DTR Service: Nutrition Therapy Author Type: Java Engineer Type: Nutrition Filed: 05/03/2025 14:07 Note Text: NUTRITION THERAPY AGRICULTURAL SERVICE TECHNICIAN NOTE SERVICE DATE: 05/03/2025 SERVICE TIME: 1202 [...] Observed: 05/03/2025 11:24 AM Status: COMPLETED Source: [facility] ID: [id number] Author: RENÉE MARTINES PT, DPT Service: Physical Therapy Author Type: Physical Therapist Type: Therapy (PT/OT/Speech/Resp) Filed: 05/03/2025 11:25 Note Text: PHYSICAL THERAPY MISSED VISIT SERVICE DATE: 05/03/2025 SERVICE TIME: 1124 ROOM: [place] [address] Patient not seen due to Patient Not Available - patient sleeping soundly with c-pap on and did not arouse to verbal or tactile stimuli. SIGNATURE: Renée Martines PT, DPT PATIENT NAME: Elia Weston DATE: May 03, 2025 TIME: 11:24 AM PT PNL PPP Collected: 05/03/2025 6:28 AM Status: F Source: [facility] Order Comment: Specimen Type : BLOOD SPECIMEN Ordering Facility: [facility] Address: [address] [place] [address] TYPE CODE TESTS RESULT OUT OF RANGE REFERENCE UNITS LAB 5902-2(LOINC) Prothrombin time 18.1 High 9.7-13.0 sec LAB 6301-6(LOINC) INR PPP 1.7 High 0.9-1.3 Result Comment: Vitamin K An tagonist (VKA) Therapeutic Range: INR 2 to 3 (Target INR of 2.5) Note: For patients treated with VKA drugs, such as warfarin, the [place] College [employer] Chest [employer]icians 2012 Guideline recommends [...] Chest 2012, 141:7S-47S Kevin RA, et al. [facility] 2017, 70: 252-289 Performed By: #### PTTAC, 34 528-0 #### [facility] CLIA [id number] [address] [place], [place] [address] [place] [id number] [place] PTT, ANTICOAGULANT THERAPY Collected: 0 05/03/2025 6:28 AM Status: F Source: [facility] Order Comment: Specimen Type : BLOOD SPECIMEN Ordering Facility: [facility] Address: [address] [place] [address] TYPE CODE TESTS RESULT OUT OF RANGE REFERENCE UNITS LAB 07867-1(LOINC) aPTT PPP 58.5 High 23.0-32.4 sec Performed By: #### PTTAC, 34 528-0 #### [facility] CLIA [id number] [address] [place], [place] [address] [place] CBC PNL BLD AUTO Collected: 6:28 AM Status: F Source: [facility] Order Comment: Specimen Type : BLOOD SPECIMEN Ordering Facility: [facility] Address: [address] [place] [address] TYPE CODE TESTS RESULT OUT OF RANGE [...] RBC Auto-mCnc 30.3 Low 30.5-36.0 g/dL LAB 58764-9(LOINC) RDW RBC-Rto 19.8 High 11.5-15.0 % LAB 777-3(LOINC) Platelet # Bld Auto 259 150-400 k/uL LAB 26533-6(LOINC) PMV Bld Auto 11.5 9.0-12.7 fL LAB 771-6(LOINC) nRBC # Bld Auto <0.01 <0.01 k/uL Performed By: #### 85677-7 # ### [facility] CLIA [id number] [address] [place] [address] [place] RENAL FUNC 2000 PNL SERPL Collected: 6:28 AM Status: F Source: [facility] Order Comment: Specimen Type : BLOOD SPECIMEN Ordering Facility: [facility] Address: [address] [place] [address] TYPE CODE TESTS RESULT OUT OF RANGE REFERENCE UNITS LAB 1751-7(LOINC) Albumin SerPl-mCnc 3.4 Low 3.9-4.9 g/dL LAB 37943-1(LOINC) Calcium SerPl-mCnc 7.8 Low 8.5-10.2 mg/dL LAB 2777-1(LOINC) Phosphate SerPl-mCnc 4.0 2.7-4.8 mg/dL Result Comment: Result reche cked. LAB 2345-7(LOINC) Glucose SerPl-mCnc 72 Low 74-99 mg/dL Result Comment: The [place] Diabetes Association (ADA) provides guidance for cutoff [...] Standards of Medical Care in Diabetes 2016, [place] Diabetes Association. Diabetes Care. 2016.39(Suppl 1). LAB 3094-0(LOINC) BUN SerPl-mCnc 23 9-24 mg/dL LAB 2160-0(LOINC) Creat SerPl-mCnc 5.64 High 0.73-1.22 mg/dL LAB 2951-2(LOINC) Sodium SerPl-sCnc 136 136-144 mmol/L LAB 2823-3(LOINC) Potassium SerPl-sCnc 4.3 3.7-5.1 mmol/L LAB 2075-0(LOINC) Chloride SerPl-sCnc 94 Low 98-107 mmol/L LAB 2028-9(LOINC) CO2 SerPl-sCnc 26 22-30 mmol/L LAB 94023-1(LOINC) Anion Gap SerPl-sCnc 16 High 8-15 mmol/L LAB 18597-4(LOINC) eGFRcr SerPlBld CKD-EPI 2020 12 Low >=60 [...] accurately reflect actual GFR. Performed By: #### 74226-8 # ### [facility] CLIA [id number] [address] [place] [address] STATES OF [facility] PROGRESS Observed: 05/03/2025 5:31 AM Status: COMPLETED Source: [facility] HNO ID: [id number] Author: ANA DALEY MD Service: General Internal Medicine Author Type: Resident Type: Progress Notes Filed: 05/03/2025 18:38 Note Text: Attestation signed by Ana Daley MD at 05/03/2025 6:38 PM [facility] STAFF PHYSICIAN NOTE OF PERSONAL INVOLVEMENT IN [...] TID, Anemia of CKD and recent admission ([facility] 02/16/2025 - ) for R Chest wall [...] 5 mg -Per patient , has established blanchard grinder operator locally who monitors his INR closely and plans to follow up with same physician for INR check on discharge # Chronic hypotension, on home midodrine 20 mg TID DISPO: Once INR is therapeutic (Goal 2.5-3.5) Discussed plan of care with patient. SIGNATURE: Ana Daley MD, FACP, [facility] DATE of SERVICE: May 03, 2025 INPATIENT INTERNAL MEDICINE PROGRESS NOTE PATIENT NAME: Elia Weston ; AGE: 6 1980; 45 year old HOSPITAL ROOM: [place] [address]/G[facility] DATE OF SERVICE: 05/03/2025 ATTENDING PHYSICIAN: [...] and Airways Line Duration Peripheral 04/26/25 2100 [facility] Right Forearm 20 Gauge 6 days Dialysis / Apheresis Double Lumen 04/29/25 1005 [facility] Tunneled Right Internal Jugular 3 days Active Hospital Problems Diagnosis Bleeding from open wound of chest wall, right, initial encounter Skin ulcers ([facility]) Hypervolemia Difficult intravenous access Consult IR prior [...] wound of left chest wall Ulcers, venous ([facility]) Status post Maze operation for atrial fibrillation [...] management of bleeding, and on transfer to [facility], patient began to have significant bleeding from [...] - Follows with Dr. Moreno (cardiology in [place]) for mgmt of Coumadin, will need follow-up outpatient #ESRD on HD via Right TDC #Chronic Hypotension #Secondary Hyperparathyroidism - iHD at [facility] through R. Tunneled HD catheter MWF - Last dialysis session Friday04/18/2025; missed Fri session because he presented to [facility] ED - anuric at baseline per [...] Observed: 05/03/2025 12:00 AM Status: COMPLETED Source: [facility] Telephone (BOBYMMN) ELIA WESTON ([id number]) 1980 M T Date Time Provider Department [...] by this patient by: PATIENT Nini Redd, [facility] Problem List As Of Date 05/03/2025 Noted Resolved ESRD (end stage renal disease) on dialysis ([facility]*10/16/2012 HTN (hypertension) [I10] 10/16/2012 Obesity [E66.9] 11/02/2012 Epigastric pain [R10.13] 11/02/2012 Mechanical complication of other vascular devic*02/12/2013 Right knee pain [M25.561] 07/29/2013 Obesity, morbid, BMI 40.0-49.9 ([facility]) [E66.01] 02/22/2014 Tendinitis of left shoulder [M77.8] 02/22/2014 Mass of left thigh [R22.42] 09/08/2014 Thigh pain [M79.659] 09/08/2014 Hematuria [R31.9] 12/08/2014 Dialysis patient ([facility]) [Z99.2] 12/08/2014 YEIMY (obstructive sleep apnea) [G47.33] 05/09/2015 Abdominal or pelvic swelling, mass, or lump, ri*05/09/2015 Secondary hyperparathyroidism, renal ([facility]) [N25*05/09/2015 Renal osteodystrophy [N25.0] 05/09/2015 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*05/09/2015 Groin pain [R10.30] 05/09/2015 Personal history of DVT (deep vein thrombosis) *03/28/2016 Sprain of medial collateral ligament of right k*04/22/2016 ESRD (end stage renal disease) ([facility]) [N18.6] 04/21/2019 PAF (paroxysmal atrial fibrillation) ([facility]) [I48*12/02/2018 A-V fistula ([facility]) [I77.0] 04/23/2019 Anemia of chronic disease [D63.8] 04/23/2019 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] 05/18/2021 ESRD on hemodialysis ([facility]) [N18.6, Z99.2] 04/07/2019 Expressive dysphasia [R47.02] 08/01/2021 History of endocarditis [Z86.79] 08/01/2021 Hearing loss [H91.90] 02/17/2018 History of non-ST elevation myocardial infarcti*11/08/2019 Heart failure, unspecified ([facility]) [I50.9] 08/05/2011 Iron deficiency anemia, unspecified [D50.9] 05/31/2008 Chronic anticoagulation [Z79.01] 08/01/2021 Mitral valve disease [I05.9] 08/01/2021 Myocardial infarction ([facility]) [I21.9] 08/01/2021 Noncompliance with medication regimen [Z91.148] 08/01/2021 Paroxysmal atrial flutter ([facility]) [I48.92] 08/01/2021 Pulmonary embolism ([facility]) [I26.99] 08/01/2021 Pulmonary edema [J81.1] 08/01/2021 Stenosis of other vascular prosthetic devices, *05/22/2021 Unspecified atherosclerosis of [place] arteries *10/30/2013 Vitamin D deficiency [E55.9] 10/16/2020 [...] 0 05/02/2025 5:20 PM Status: F Source: [facility] Order Comment: Specimen Type : BLOOD SPECIMEN [facility] [facility] Address: [address] [place] [address] TYPE CODE TESTS RESULT OUT OF RANGE REFERENCE UNITS LAB 12504-6(LOINC) aPTT PPP 60.0 High 23.0-32.4 sec Performed By: #### PTTAC ### # [facility] CLIA [id number] [address] [place] [address] [place] [address] [place] ALLIED HEALTH Observed: 05/02/2025 5:15 PM Status: COMPLETED Source: [facility] HNO ID: [id number] Author: SHANNON HOOD Music Therapist Service: Music [...] (I am Not Alone), The Lord is Lovell Me, We Offer Praise, I Gotta Feeling Style of Music: gospel Family Present: No Patient's Verbal Response: Positive OUTCOME: Goals: Met FOLLOW UP: Will Continue to Follow Music therapy referral received and appreciated. Familiar with pt from previous admissions. [facility] greeted pt, who was awake in hospital bed and welcomed visit. 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 He was having some mild pain (3/10) at time of visit, and opted to engage in music-listening rather than instrument playing today. 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 Per request, [facility] provided recorded pt-preferred music to address [...] 02, 2025 TIME: 5:15 PM PAGER/CONTACT #: [phone] THERAPY NT Observed: 05/02/2025 5:07 PM Status: COMPLETED Source: [facility] HNO ID: [id number] Author: RENÉE MARTINES, PT, DPT Service: Physical Therapy Author Type: Physical Therapist Type: Therapy (PT/OT/Speech/Resp) Filed: 05/02/2025 17:30 Note Text: Physical Therapy Evaluation Summary SERVICE DATE: 05/02/2025 SERVICE TIME: 1607 to 1706 ROOM: [place] [address] PT 6 Clicks Score: 16 DISCHARGE RECOMMENDATIONS: [...] Within Functional Limits 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 Has been sleeping in recliner 2/2 to pain. (+) driving SUBJECTIVE Patient pleasant and agreeable to PT. I've been asking for PT since I've been here! Will PT be back tomorrow? THERAPY DIAGNOSIS Reduced mobility-other, Muscle Weakness (generalized), General symptoms and signs-other TREATMENT INTERVENTIONS Evaluation, Therapeutic Activity (59208) Timed Code Treatment (minutes): 38 Skilled Treatment [...] Observed: 05/02/2025 1:01 PM Status: COMPLETED Source: [facility] ID: [id number] Author: JARVIS SAUCEDO MD, PhD Service: Dermatology [...] proliferation, immunohistochemical staining is performed at the [facility] on block A1 with appropriate controls. [...] pain with these Patient discussed with attending price checker, Dr. Donald Beltran MD Dermatology PGY-3 05/02/2025 1:01 PM Please use consult pager [phone], Mon-Fri 8am-5pm. Please call electric truck crane operator for on-call resident/pager during all other hours. I agree with the Chief Complaint, ROS, and Past Histories independently gathered by the clinical learning support resource room teacher and the remaining scribed note accurately describes [...] Observed: 05/02/2025 11:48 AM Status: COMPLETED Source: [facility] HNO ID: [id number] Author: ?, ?, ? Service: Care Management Author Type: ? 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, PR, PE, CVA, CHB, colitis, Adjustment Disorder With Depressed Mood, MSSA bacteremia, Proximal Colon Ulcer, Hypothyroidism, Intra-Abdominal Varices, , S/P MAZE procedure, skin ulcers, GERD, YEIMY, DVTs Patient presented to [facility] on 04/20/25 with chief complaint of bloody [...] of first HD: 2005 -Current HD unit: [facility] -Loading Dock Hand: Dr Melendez -Schedule: Fri-Fri-Fri -Time: 4.5 hrs -EDW: 114 kg -Date of last outpatient dialysis: 04/18/25 -Access: R IJ TDC 04/29/2025 s/p S/p 04/29 venogram , 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 Please DO NOT schedule patient for a nephrology follow up appointment. Kidney care will be provided by the primary member of technical staff at their dialysis unit upon hospital discharge. SIGNATURE: Lucille Gomez APRN.CNP PATIENT NAME: Elia Weston DATE: May 02, 2025 TIME: 9:57 AM PAGER: [phone] FOR AFTER HOUR CONCERNS BETWEEN 5PM - 7AM CONTACT ON-CALL NEPHROLOGY FELLOW [phone] Disclosures: Parts of the current progress note may have been copied from a previous note. PTT, ANTICOAGULANT THERAPY Collected: 0 05/02/2025 9:22 AM Status: F Source: [facility] Order Comment: Specimen Type : BLOOD SPECIMEN Ordering Facility: [facility] Address: [address] [place] [address] TYPE CODE TESTS RESULT OUT OF RANGE REFERENCE UNITS LAB 85141-3(LOINC) aPTT PPP 62.6 High 23.0-32.4 sec Performed By: #### PTTAC ### # [facility] CLIA [id number] [address] [place] [address] [place] [address] [place] PROGRESS Observed: 05/02/2025 5:22 AM Status: COMPLETED Source: [facility] HNO ID: [id number] Author: ANA DALEY MD Service: General Internal Medicine Author Type: Resident Type: Progress Notes Filed: 05/02/2025 17:46 Note Text: Attestation signed by Ana Daley MD at 05/02/2025 5:46 PM [facility] STAFF PHYSICIAN NOTE OF PERSONAL INVOLVEMENT IN [...] TID, Anemia of CKD and recent admission ([facility] 02/16/2025 - ) for R Chest wall [...] care with patient. SIGNATURE: Ana Daley MD, [facility], [facility] DATE of SERVICE: May 02, 2025 INPATIENT INTERNAL MEDICINE PROGRESS NOTE PATIENT NAME: Elia Weston ; AGE: 6 1980; 45 year old [address] DATE OF SERVICE: 05/02/2025 ATTENDING PHYSICIAN: [...] and Airways Line Duration Peripheral 04/26/25 2100 [facility] Right Forearm 20 Gauge 5 days Dialysis / Apheresis Double Lumen 04/29/25 1005 [facility] Tunneled Right Internal Jugular 2 days Active [...] management of bleeding, and on transfer to [facility], patient began to have significant bleeding from [...] - Follows with Dr. Moreno (cardiology in [place]) for mgmt of Coumadin, will need follow-up outpatient #ESRD on HD via Right TDC #Chronic Hypotension #Secondary Hyperparathyroidism - iHD at [facility] through R. Tunneled HD catheter MWF - [...] Collected: 05/02/2025 2:16 AM Status: F Source: [facility] Order Comment: Specimen Type : BLOOD SPECIMEN Ordering Facility: [facility] Address: [address] [place] [address] TYPE CODE TESTS RESULT OUT OF RANGE REFERENCE UNITS LAB 5902-2(LOINC) Prothrombin time 18.6 High 9.7-13.0 sec LAB 6301-6(LOINC) INR PPP 1.8 High 0.9-1.3 Result Comment: Vitamin K An tagonist (VKA) Therapeutic Range: INR 2 to 3 (Target INR of 2.5) Note: For patients treated with VKA drugs, such as warfarin, the [place] College of [employer]icians 2012 Guideline recommends [...] Chest 2012, 141:7S-47S Kevin RA et al. [facility] 2017, 70: 252-289 Performed By: #### PTTAC, 34 528-0 #### [facility] CLIA [id number] [address] [place] [address] [place] PTT, ANTICOAGULANT THERAPY Collected: 0 05/02/2025 2:16 AM Status: F Source: [facility] Order Comment: Specimen Type : BLOOD SPECIMEN Ordering Facility: [facility] Address: [address] [place] [address] TYPE CODE TESTS RESULT OUT OF RANGE REFERENCE UNITS LAB 56242-2(LOINC) aPTT PPP 44.1 High 23.0-32.4 sec Performed By: #### PTTAC, 34 528-0 #### [facility] CLIA [id number] [address] [place] [address] OF [place] RENAL FUNC 2000 PNL SERPL Collected: 2:16 AM Status: F Source: [facility] Comment: Specimen Type : BLOOD SPECIMEN Ordering Facility: [facility] Address: [address] [place] [address] TYPE CODE TESTS RESULT OUT OF RANGE REFERENCE UNITS LAB 1751-7(LOINC) Albumin SerPl-mCnc 3.5 Low 3.9-4.9 g/dL LAB 75471-8(LOINC) Calcium SerPl-mCnc 7.5 Low 8.5-10.2 mg/dL LAB 2777-1(LOINC) Phosphate SerPl-mCnc 6.0 High 2.7-4.8 mg/dL LAB 2345-7(LOINC) Glucose SerPl-mCnc 76 74-99 mg/dL Result Comment: The [place] Diabetes Association (ADA) provides guidance for cutoff [...] Standards of Medical Care in Diabetes 2016, [place] Diabetes Association. Diabetes Care. 2016.39(Suppl 1). LAB 3094-0(LOINC) BUN SerPl-mCnc 41 High 9-24 mg/dL LAB 2160-0(LOINC) Creat SerPl-mCnc 8.39 High 0.73-1.22 mg/dL LAB 2951-2(LOINC) Sodium SerPl-sCnc 136 136-144 mmol/L LAB 2823-3(LOINC) Potassium SerPl-sCnc 5.1 3.7-5.1 mmol/L LAB 2075-0(LOINC) Chloride SerPl-sCnc 93 Low 98-107 mmol/L LAB 2027-9(LOINC) CO2 SerPl-sCnc 23 22-30 mmol/L LAB 59361-3(LOINC) Anion Gap SerPl-sCnc 20 High 8-15 mmol/L LAB 89165-2(LOINC) eGFRcr SerPlBld CKD-EPI 2020 7 Low >=60 [...] accurately reflect actual GFR. Performed By: #### 53786-6 # ### [facility] CLIA [id number] [address] [place] [address] STATES [facility] PTT, ANTICOAGULANT THERAPY Collected: 0 05/01/2025 8:11 PM Status: F Source: [facility] Order Comment: Specimen Type : BLOOD SPECIMEN Ordering Facility: [facility] Address: [address] [place] [address] TYPE CODE TESTS RESULT OUT OF RANGE REFERENCE UNITS LAB 91772-3(INC) aPTT PPP 57.7 High 23.0-32.4 sec Performed By: #### PTTAC ### # [facility] CLIA [id number] [address] [place] [address] OF [facility] PTT, ANTICOAGULANT THERAPY Collected: 0 05/01/2025 1:12 PM Status: F Source: [facility] Order Comment: Specimen Type : BLOOD SPECIMEN Ordering Facility: [facility] Address: [address] [place] [address] TYPE CODE TESTS RESULT OUT OF RANGE REFERENCE UNITS LAB 54113-3(LOINC) aPTT PPP 46.1 High 23.0-32.4 sec Performed By: #### PTTAC ### # [facility] CLIA [id number] [address] [place] [address] STATES OF [facility] PROGRESS Observed: 05/01/2025 5:57 AM Status: COMPLETED Source: [facility] HNO ID: [id number] Author: ANA DALEY MD Service: General Internal Medicine Author Type: Resident Type: Progress Notes Filed: 05/01/2025 16:20 Note Text: Attestation signed by Ana Daley MD at 05/01/2025 4:20 PM [facility] STAFF PHYSICIAN NOTE OF PERSONAL INVOLVEMENT IN [...] TID, Anemia of CKD and recent admission ([facility] 02/16/2025 - ) for R Chest wall [...] with patient. SIGNATURE: Ana Daley MD, FACP, [facility] DATE of SERVICE: May 01, 2025 INPATIENT INTERNAL MEDICINE PROGRESS NOTE PATIENT NAME: Elia Weston ; AGE: 6 1980; 45 year old HOSPITAL ROOM: [place] [address] DATE OF SERVICE: 05/01/2025 ATTENDING PHYSICIAN: Ana [...] and Airways Line Duration Peripheral 04/26/25 2100 [facility] Right Forearm 20 Gauge 4 days Dialysis / Apheresis Double Lumen 04/29/25 1005 [facility] Tunneled Right Internal Jugular 1 day Active [...] management of bleeding, and on transfer to [facility], patient began to have significant bleeding from [...] - Follows with Dr. Moreno (cardiology in [place]) for mgmt of Coumadin, will need follow-up outpatient #ESRD on HD via Right TDC #Chronic Hypotension #Secondary Hyperparathyroidism - iHD at [facility] through R. Tunneled HD catheter MWF - [...] Collected: 05/01/2025 4:53 AM Status: F Source: [facility] Order Comment: Specimen Type : BLOOD SPECIMEN Ordering Facility: [facility] Address: [address] [place] [address] TYPE CODE TESTS RESULT OUT OF RANGE REFERENCE UNITS LAB 5902-2(LOINC) Prothrombin time 18.7 High 9.7-13.0 sec LAB 6301-6(LOINC) INR PPP 1.8 High 0.9-1.3 Result Comment: Vitamin K An tagonist (VKA) Therapeutic Range: INR 2 to 3 (Target INR of 2.5) Note: For patients treated with VKA drugs, such as warfarin, the [place] College of Chest Physicians 2012 Guideline recommends [...] Chest 2012, 141:7S-47S Kevin RUSHING et al. [facility] 2017, 70: 252-289 Performed By: #### 55172-3, 01961-5 #### [facility] CLIA [id number] [address] [place] [address] [place] APTT PPP Collected: 5 4:53 AM Status: F Source: [facility] Comment: Specimen Type : BLOOD SPECIMEN Ordering Facility: [facility] Address: [address] [place] [address] TYPE CODE TESTS RESULT OUT OF RANGE REFERENCE UNITS LAB 53232-0([facility]) aPTT PPP 37.4 High 23.0-32.4 sec Performed By: #### 43815-7, 56519-1 #### [facility] CLIA [id number] [address] [place] [address] [place] CBC PNL BLD AUTO Collected: 5 4:53 AM Status: F Source: [facility] Comment: Specimen Type : BLOOD SPECIMEN Ordering Facility: [facility] Address: [address] [place] [address] TYPE CODE TESTS RESULT OUT OF RANGE [...] RBC Auto-mCnc 29.6 Low 30.5-36.0 g/dL LAB 98454-5(LOINC) RDW RBC-Rto 19.5 High 11.5-15.0 % LAB 777-3(LOINC) Platelet # Bld Auto 307 150-400 k/uL LAB 51772-0([facility]) PMV Bld Auto 10.9 9.0-12.7 fL LAB 771-6(LOINC) nRBC # Bld Auto <0.01 <0.01 k/uL Performed By: #### 72842-5 # ### [facility] CLIA [id number] [address] [place] [address] [place] [address] [place] RENAL FUNC 2000 PNL SERPL Collected: 4:53 AM Status: F Source: [facility] Order Comment: Specimen Type : BLOOD SPECIMEN Ordering Facility: [facility] Address: [address] [place] [address] TYPE CODE TESTS RESULT OUT OF RANGE REFERENCE UNITS LAB 1751-7(LOINC) Albumin SerPl-mCnc 3.6 Low 3.9-4.9 g/dL LAB 59346-2(LOINC) Calcium SerPl-mCnc 7.8 Low 8.5-10.2 mg/dL LAB 2777-1(LOINC) Phosphate SerPl-mCnc 5.9 High 2.7-4.8 mg/dL LAB 2345-7(LOINC) Glucose SerPl-mCnc 83 74-99 mg/dL Result Comment: The [place] Diabetes Association (ADA) provides guidance for cutoff [...] Standards of Medical Care in Diabetes 2016, [place] Diabetes Association. Diabetes Care. 2016.39(Suppl 1). LAB 3094-0(LOINC) BUN SerPl-mCnc 31 High 9-24 mg/dL LAB 2160-0(LOINC) Creat SerPl-mCnc 6.66 High 0.73-1.22 mg/dL LAB 2951-2(LOINC) Sodium SerPl-sCnc 137 136-144 mmol/L LAB 2823-3(LOINC) Potassium SerPl-sCnc 4.8 3.7-5.1 mmol/L LAB 2075-0(LOINC) Chloride SerPl-sCnc 93 Low 98-107 mmol/L LAB 2027-9(LOINC) CO2 SerPl-sCnc 27 22-30 mmol/L LAB 16711-8(LOINC) Anion Gap SerPl-sCnc 17 High 8-15 mmol/L LAB 33492-5(LOINC) eGFRcr SerPlBld CKD-EPI 2020 10 Low >=60 [...] accurately reflect actual GFR. Performed By: #### 09626-9 # ### [facility] CLIA [id number] [address] [place] [address] PTT, ANTICOAGULANT THERAPY Collected: 0 04/30/2025 8:05 PM Status: F Source: [facility] Order Comment: Specimen Type : BLOOD SPECIMEN Ordering Facility: [facility] Address: [address] [place] [address] TYPE CODE TESTS RESULT OUT OF RANGE REFERENCE UNITS LAB 77944-1([facility]) aPTT PPP 40.6 High 23.0-32.4 sec Performed By: #### PTTAC ### # [facility] CLIA [id number] [address] [place] [address] OF [facility] PROGRESS Observed: 04/30/2025 12:49 PM Status: COMPLETED Source: [facility] HNO ID: [id number] Author: ANA DALEY MD Service: General Internal Medicine Author Type: Resident Type: Progress Notes Filed: 04/30/2025 17:22 Note Text: Attestation signed by Ana Daley MD at 04/30/2025 5:22 PM [facility] STAFF PHYSICIAN NOTE OF PERSONAL INVOLVEMENT IN [...] TID, Anemia of CKD and recent admission ([place] 02/16/2025 - ) for R Chest wall [...] care with patient. SIGNATURE: [facility] Daley MD[facility], [facility] DATE of SERVICE: April 30, 2025 INPATIENT INTERNAL MEDICINE PROGRESS NOTE PATIENT NAME: Elia Weston ; AGE: 6 1980; 45 year old HOSPITAL ROOM: [place] [address] DATE OF SERVICE: 04/30/2025 ATTENDING PHYSICIAN: Ana [...] and Airways Line Duration Peripheral 04/26/25 2100 [facility] Right Forearm 20 Gauge 3 days Dialysis / Apheresis Double Lumen 04/29/25 1005 [facility] Tunneled Right Internal Jugular 1 day Active [...] #Chronic Hypotension #Secondary Hyperparathyroidism - iHD at [facility] through R. Tunneled HD catheter MWF [...] SERPL Collected: 12:48 PM Status: F Source: [facility] Order Comment: Specimen Type : BLOOD SPECIMEN Ordering Facility: [facility] Address: [address] [place] [address] TYPE CODE TESTS RESULT OUT OF RANGE REFERENCE UNITS LAB 1751-7(LOINC) Albumin SerPl-mCnc 3.8 Low 3.9-4.9 g/dL LAB 87598-5(LOINC) Calcium SerPl-mCnc 8.6 8.5-10.2 mg/dL LAB 2777-1(LOINC) Phosphate SerPl-mCnc 4.9 High 2.7-4.8 mg/dL LAB 2345-7(LOINC) Glucose SerPl-mCnc 78 74-99 mg/dL Result Comment: The [place] Diabetes Association (ADA) provides guidance for cutoff [...] Standards of Medical Care in Diabetes 2016, [place] Diabetes Association. Diabetes Care. 2016.39(Suppl 1). LAB 3094-0(LOINC) BUN SerPl-mCnc 17 9-24 mg/dL LAB 2160-0(LOINC) Creat SerPl-mCnc 5.21 High 0.73-1.22 mg/dL LAB 2951-2(LOINC) Sodium SerPl-sCnc 136 136-144 mmol/L LAB 2823-3(LOINC) Potassium SerPl-sCnc 4.8 3.7-5.1 mmol/L LAB 2075-0(LOINC) Chloride SerPl-sCnc 92 Low 98-107 mmol/L LAB 2027-9(LOINC) CO2 SerPl-sCnc 25 22-30 mmol/L LAB 73478-7(LOINC) Anion Gap SerPl-sCnc 19 High 8-15 mmol/L LAB 21543-8(LOINC) eGFRcr SerPlBld CKD-EPI 2020 13 Low >=60 [...] accurately reflect actual GFR. Performed By: #### 90315-2 # ### [facility] CLIA [id number] [address] [place] [address] [place] CBC PNL BLD AUTO Collected: 5 12:48 PM Status: F Source: [facility] Order Comment: Specimen Type : BLOOD SPECIMEN Ordering Facility: [facility] Address: [address] [place] [address] TYPE CODE TESTS RESULT OUT OF RANGE [...] RBC Auto-mCnc 29.8 Low 30.5-36.0 g/dL LAB 64184-6(INC) RDW RBC-Rto 19.4 High 11.5-15.0 % LAB 777-3(INC) Platelet # Bld Auto 343 150-400 k/uL LAB 07185-7([facility]) PMV Bld Auto 10.7 9.0-12.7 fL LAB 771-6([facility]) nRBC # Bld Auto <0.01 <0.01 k/uL Performed By: #### 36826-5 # ### [facility] CLIA [id number] [address] [place] [address] STATES OF [facility] PT PNL PPP Collected: 5 12:48 PM Status: F Source: [facility] Order Comment: Specimen Type : BLOOD SPECIMEN Ordering Facility: [facility] Address: [address] [place] [address] TYPE CODE TESTS RESULT OUT OF RANGE REFERENCE UNITS LAB 5902-2([facility]) Prothrombin time 23.0 High 9.7-13.0 sec LAB 6301-6([facility]) INR PPP 2.2 High 0.9-1.3 Result Comment: Vitamin K An tagonist (VKA) Therapeutic Range: INR 2 to 3 (Target INR of 2.5) Note: For patients treated with VKA drugs, such as warfarin, the [place] College of Chest Physicians 2012 Guideline recommends [...] Chest 2012, 141:7S-47S Kevin RA, et al. [facility] 2017, 70: 252-289 Performed By: #### 31452-6, 07055-0 #### [facility] CLIA [id number] [address] [place] [address] [place] APTT PPP Collected: 12:48 PM Status: F Source: [facility] Order Comment: Specimen Type : BLOOD SPECIMEN Ordering Facility: [facility] Address: [address] [place] [address] TYPE CODE TESTS RESULT OUT OF RANGE REFERENCE UNITS LAB 69540-0([facility]) aPTT PPP 36.8 High 23.0-32.4 sec Performed By: #### 80392-2, 21224-4 #### [facility] CLIA [id number] [address] [place] [address] OF [facility] NURSING PROG Observed: 04/30/2025 4:42 AM Status: COMPLETED Source: [facility] HNO ID: [id number] Author: KRYSTAL BRODERICK RN Service: ? Author [...] Observed: 04/29/2025 2:52 PM Status: COMPLETED Source: [facility] HNO ID: [id number] Author: ELVA PATEL APRN.INDUSTRIAL TECHNOLOGIST Service: ? Author Type: Nurse Practitioner Type: Consult Progress Note Filed: 04/29/2025 16:19 Note Text: Department of Kidney Medicine Medical Specialties [place] [facility] NEPHROLOGY CONSULT SERVICE PROGRESS NOTE INTERVAL [...] and Airways Line Duration Peripheral 04/26/25 2100 [facility] Right Forearm 20 Gauge 2 days Dialysis / Apheresis Double Lumen 04/29/25 1005 [facility] Tunneled Right Internal Jugular <1 day Labs: [...] 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, PR, PE, CVA, CHB, colitis, Adjustment Disorder With Depressed Mood, MSSA bacteremia, Proximal Colon Ulcer, Hypothyroidism, Intra-Abdominal Varices, , S/P MAZE procedure, skin ulcers, GERD, YEIMY, DVTs Patient presented to [facility] on 04/20/25 with chief complaint of bloody [...] of first HD: 2005 -Current HD unit: [facility] -Loading Dock Hand: Dr Melendez -Schedule: Fri-Fri-Fri -Time: 4.5 hrs -EDW: 114 kg -Date of last outpatient dialysis: 04/18/25 -Access: R IJ TDC 2.Electrolytes/acid-base: -stable, modulating with TECHNICAL SALES ASSOCIATE 3.Blood Pressure/Volume Status: -BP 113/58 - SBP [...] 10 ml/min Outpatient dialysis disposition plan: contact [phone] and ask to speak with the help desk consultant as needed for assistance with post-discharge arrangements. Please DO NOT schedule patient for a nephrology follow up appointment. Kidney care will be provided by the primary member of technical staff at their dialysis unit upon hospital discharge. Elva Patel APRN.INDUSTRIAL TECHNOLOGIST Nephrology and Hypertension [facility] April 29, 2025 2:52 PM PAGER # [phone] Disclosures: Parts of the current progress note may have been copied from a previous note. FOR AFTER HOUR CONCERNS BETWEEN 5PM - 7AM CONTACT ON-CALL NEPHROLOGY FELLOW [id number] RENAL FUNC 1999 PNL SERPL Collected: 2:34 PM Status: F Source: [facility] Order Comment: Specimen Type : BLOOD SPECIMEN Ordering Facility: [facility] Address: [address] [place] [address] TYPE CODE TESTS RESULT OUT OF RANGE REFERENCE UNITS LAB 1751-7(LOINC) Albumin SerPl-mCnc 3.5 Low 3.9-4.9 g/dL LAB 54341-0(LOINC) Calcium SerPl-mCnc 7.8 Low 8.5-10.2 mg/dL LAB 2777-1(LOINC) Phosphate SerPl-mCnc 5.3 High 2.7-4.8 mg/dL LAB 2345-7(LOINC) Glucose SerPl-mCnc 110 High 74-99 mg/dL Result Comment: The [place] Diabetes Association (ADA) provides guidance for cutoff [...] Standards of Medical Care in Diabetes 2016, [place] Diabetes Association. Diabetes Care. 2016.39(Suppl 1). LAB 3094-0(LOINC) BUN SerPl-mCnc 26 High 9-24 mg/dL LAB 2160-0(LOINC) Creat SerPl-mCnc 7.29 High 0.73-1.22 mg/dL LAB 2951-2(LOINC) Sodium SerPl-sCnc 135 Low 136-144 mmol/L LAB 2823-3(LOINC) Potassium SerPl-sCnc 5.2 High 3.7-5.1 mmol/L LAB 2075-0(LOINC) Chloride SerPl-sCnc 95 Low 98-107 mmol/L LAB 2028-9(LOINC) CO2 SerPl-sCnc 22 22-30 mmol/L LAB 18130-1(LOINC) Anion Gap SerPl-sCnc 18 High 8-15 mmol/L LAB 94139-8(LOINC) eGFRcr SerPlBld CKD-EPI 2020 9 Low >=60 [...] accurately reflect actual GFR. Performed By: #### 15695-6 # ### [facility] CLIA [id number] [address] [place] [address] [place] PT PNL PPP Collected: 04/29/2025 2:34 PM Status: F Source: [facility] Order Comment: Specimen Type : BLOOD SPECIMEN Ordering Facility: [facility] Address: [address] [place] [address] TYPE CODE TESTS RESULT OUT OF RANGE REFERENCE UNITS LAB 5902-2(LOINC) Prothrombin time 17.0 High 9.7-13.0 sec LAB 6301-6(LOINC) INR PPP 1.6 High 0.9-1.3 Result Comment: Vitamin K An tagonist (VKA) Therapeutic Range: INR 2 to 3 (Target INR of 2.5) Note: For patients treated with VKA drugs, such as warfarin, the [place] College of [employer] Physicians 2012 Guideline recommends [...] Chest 2012, 141:7S-47S Kevin RUSHING et al. [facility] 2017, 70: 252-289 Performed By: #### 73761-8 # ### [facility] CLIA [id number] [address] [place] [address] [place] CBC PNL BLD AUTO Collected: 2:34 PM Status: F Source: [facility] Order Comment: Specimen Type : BLOOD SPECIMEN Ordering Facility: [facility] Address: [address] [place] [address] TYPE CODE TESTS RESULT OUT OF RANGE [...] RBC Auto-mCnc 29.8 Low 30.5-36.0 g/dL LAB 62362-2(LOINC) RDW RBC-Rto 19.2 High 11.5-15.0 % LAB 777-3(LOINC) Platelet # Bld Auto 298 150-400 k/uL LAB 25198-6(LOINC) PMV Bld Auto 10.8 9.0-12.7 fL LAB 771-6(LOINC) nRBC # Bld Auto <0.01 <0.01 k/uL Performed By: #### 32860-4 # ### [facility] CLIA [id number] [address] [place] [address] [place] ANES POSTPROC EVAL Observed: 04/29/2025 11:01 AM Status: COMPLETED Source: [facility] HNO ID: [id number] Author: BECCA CONDON MD Service: ? Author [...] April 29, 2025 TIME: 11:01 AM CSN: [id number] BRIEF OP NOT Observed: 04/29/2025 10:19 AM Status: COMPLETED Source: [facility] HNO ID: [id number] Author: VELIA PAUL MD Service: Radiology Author Type: Physician Type: Brief Op Note Filed: 04/29/2025 10:20 Note Text: OPERATIVE/PROCEDURE REPORT LOG ID: [id number] SURGERY/PROCEDURE DATE: 04/29/2025 INCISION/PROCEDURE START TIME: 9:14 AM INCISION CLOSE/PROCEDURE END TIME: 9:53 AM SURGEON(S)/PROCEDURALIST(S) AND STAFFING ADMINISTRATOR(S): Surgeons and Role: * Velia Paul MD [...] CAVAGRAM Observed: 9:53 AM Status: F Source: [facility] * * *Final Report* * * DATE OF EXAM: Apr 29 2025 9:53AM [facility] 0802 - IR SUPERIOR CAVAGRAM / [...] performed by the: attending radiologist, with an phlebotomist medical lab assistant. The attending radiologist performed the following [...] and agree with the report as written. Market Relationship Manager: PSCB Transcribe Date/Time: Apr 29 2025 7:51P Dictated by : VELIA PAUL MD This examination was interpreted and the report reviewed and electronically signed by: VELIA PAUL MD on May 09 2025 4:48PM EST IR PLASTY ONLY CENTRAL DIALYSIS Observed : 04/29/2025 9:53 AM Status: F Source: [facility] * * *Final Report* * * DATE OF EXAM: Apr 29 2025 9:53AM [facility] 0608 - IR PLASTY ONLY CENTRAL [...] performed by the: attending radiologist, with an phlebotomist medical lab assistant. The attending radiologist performed the following [...] and agree with the report as written. Market Relationship Manager: AZAM Transcribe Date/Time: Apr 29 2025 7:51P Dictated by : VELIA PAUL MD This examination was interpreted and the report reviewed and electronically signed by: VELIA PAUL MD on May 09 2025 4:48PM [facility] IR CENTRAL LINE EXCHANGE Observed: 04/29 9:53 AM Status: F Source: [facility] * * *Final Report* * * DATE OF EXAM: Apr 29 2025 9:53AM [facility] 0744 - IR CENTRAL LINE EXCHANGE [...] performed by the: attending radiologist, with an phlebotomist medical lab assistant. The attending radiologist performed the following [...] and agree with the report as written. Market Relationship Manager: PSCB Transcribe Date/Time: Apr 29 2025 7:51P Dictated by : VELIA PAUL MD This examination was interpreted and the report reviewed and electronically signed by: VELIA PAUL MD on May 09 2025 4:48PM EST ANES PROCEDURE NOTE Observed: 04/29/2025 8:57 AM Status: COMPLETED Source: [facility] HNO ID: [id number] Author: SALVADOR CHAVARRIA APRN.PICTURE FRAME MAKER Service: ? Author Type: Nurse Latex Foam Worker Type: Anesthesia Procedure Notes Filed: 04/29/2025 08:58 Note Text: ANESTHESIOLOGY PROCEDURE NOTE Airway General Information Procedure Start Time/Medication Administration: 04/29/2025 8:27 AM Procedure End Time: 04/29/2025 8:57 AM Patient location during procedure: OR Patient identity confirmed: arm band and patient Staffing PICTURE FRAME MAKER: Salvador Chavarria APRN.PICTURE FRAME MAKER Performed by: PICTURE FRAME MAKER Indications and Patient Condition Indications for airway [...] mask Airway not difficult SIGNATURE: Salvador Chavarria APRN.PICTURE FRAME MAKER PATIENT NAME: Elia Weston DATE: April 29, 2025 TIME: 8:57 AM CSN: [id number] ANES PRE-OP Observed: 04/29/2025 7:52 AM Status: COMPLETED Source: [facility] HNO ID: [id number] Author: BECCA CONDON MD Service: ? Author [...] complication of procedure (+) Unspecified atherosclerosis of [place] arteries of extremities, right leg (+) Venous [...] and consent discussed: yes. Patient / Responsible Libertarian agrees to proceed: yes Patient / Surrogate [...] April 29, 2025 TIME: 7:52 AM CSN: [id number] PROGRESS Observed: 04/29/2025 5:41 AM Status: COMPLETED Source: [facility] ID: [id number] Author: MARYLIN RAYMOND MD Service: General Internal Medicine Author Type: Resident Type: Progress Notes Filed: 04/29/2025 17:34 Note Text: Attestation signed by Marylin Raymond MD at 04/29/2025 5:34 PM [facility] STAFF PHYSICIAN NOTE OF PERSONAL INVOLVEMENT IN [...] placement with INR goal 2.5-3.5 # Poor intermediate card tender prognosis -s/p venoplasty of Right innominate vein [...] 6 1980; 45 year old HOSPITAL ROOM: [place] [address] DATE OF SERVICE: 04/29/2025 ATTENDING PHYSICIAN: Marylin [...] Tunneled Right -- days Peripheral 04/26/25 2[facility] Right Forearm 20 Gauge 2 days Active [...] management of bleeding, and on transfer to [facility], patient began to have significant bleeding from [...] #Chronic Hypotension #Secondary Hyperparathyroidism - iHD at [facility] [place] through R. Tunneled HD catheter MWF - Last dialysis session Friday04/18/2025; missed Fri session because he presented to [facility] ED - anuric at baseline per [...] Observed: 04/28/2025 9:54 PM Status: COMPLETED [facility]: [id number] Author: GUZMAN HERNANDEZ MD Service: Interventional Radiology [...] the more senior doctor. Dr Santiago MANRIQUEZ regional rehabilitation director came with me to the bedside and [...] 0 04/28/2025 6:56 PM Status: F Source: [facility] Order Comment: Specimen Type : BLOOD SPECIMEN Ordering Facility: [facility] Address: [address] [place] [address] TYPE CODE TESTS RESULT OUT OF RANGE REFERENCE UNITS LAB 36369-4(LOINC) aPTT PPP 48.0 High 23.0-32.4 sec Performed By: #### PTTAC ### # [facility] CLIA [id number] [address] [place] [address] [place] [address] [place] CONSULT PROG Observed: 04/28/2025 3:43 PM Status: COMPLETED Source: [facility] HNO ID: [id number] Author: BHAKTI KIRBY MD Service: Dermatology Author [...] proliferation, immunohistochemical staining is performed at the [facility] on block A1 with appropriate controls. [...] pain with these Patient discussed with attending price checker, Dr. Gregory Beltran MD Dermatology PGY-3 04/28/2025 3:43 PM Please use consult pager [phone], Mon-Fri 8am-5pm. Please call electric truck crane operator for on-call resident/pager during all other hours. ALLIED HEALTH Observed: 04/28/2025 12:25 PM Status: COMPLETED Source: [facility] HNO ID: [id number] Author: NOAH JUAREZ Chaplain Service: Spiritual Care Author Type: Door Assembler Type: Allied Health Filed: 04/28/2025 14:48 Note Text: SPIRITUAL CARE ASSESSMENT SERVICE DATE: 04/28/2025 SERVICE TIME: 12:25 Visit with: Patient Length of visit (minutes): 15 Presybeterian / Spirituality: Sabianist Reason: Initial visit ASSESSMENT Emotional Disposition: Determined, [...] 28, 2025 TIME: 2:41 PM PAGER/CONTACT #: [phone] PTT, ANTICOAGULANT THERAPY Collected: 0 04/28/2025 12:19 PM Status: F Source: [facility] Order Comment: Specimen Type : BLOOD SPECIMEN Ordering Facility: [facility] Address: [address] [place] [address] TYPE CODE TESTS RESULT OUT OF RANGE REFERENCE UNITS LAB 30967-0(LOINC) aPTT PPP 55.8 High 23.0-32.4 sec Performed By: #### PTTAC ### # [facility] CLIA [id number] [address] [place] [address] [place] TYPE + SCREEN Collected: 04/28/2025 12:19 PM Status: F Source: [facility] Order Comment: Specimen Type : BLOOD SPECIMEN Ordering Facility: [facility] Address: [address] [place] [address] TYPE CODE TESTS RESULT OUT OF RANGE REFERENCE UNITS LAB [id number] ABO B LAB 5183619948 RH Positive LAB [id number] ANTIBODY SCREEN Negative LAB 4891029569 TYPE AND SCREEN EXPIRATION 05/01/2025 23:59 Performed By: #### TSCR #### [facility] CLIA [id number] [address] [place] [address] [place] PROGRESS Observed: 04/28/2025 6:11 AM Status: COMPLETED Source: [facility] HNO ID: [id number] Author: MARYLIN RAYMOND MD Service: General Internal Medicine Author Type: Resident Type: Progress Notes Filed: 04/28/2025 20:19 Note Text: Attestation signed by Marylin Raymond MD at 04/28/2025 8:19 PM [facility] STAFF PHYSICIAN NOTE OF PERSONAL INVOLVEMENT IN [...] placement with INR goal 2.5-3.5 # Poor longterm prognosis -heparin bridge w/ coumadin 5 mg [...] 6 1980; 45 year old HOSPITAL ROOM: [place] [address] DATE OF SERVICE: 04/28/2025 ATTENDING PHYSICIAN: Marylin [...] Tunneled Right -- days Peripheral 04/26/25 [facility] Right Forearm 20 Gauge 1 day Active [...] management of bleeding, and on transfer to [facility], patient began to have significant bleeding from [...] #Chronic Hypotension #Secondary Hyperparathyroidism - iHD at [facility] [place] through R. Tunneled HD catheter MWF - [...] Collected: 04/28/2025 1:45 AM Status: F Source: [facility] Order Comment: Specimen Type : BLOOD SPECIMEN Ordering Facility: [facility] Address: [address] [place] [address] TYPE CODE TESTS RESULT OUT OF RANGE REFERENCE UNITS LAB 5902-2(LOINC) Prothrombin time 15.2 High 9.7-13.0 sec LAB 6301-6(LOINC) INR PPP 1.4 High 0.9-1.3 Result Comment: Vitamin K An tagonist (VKA) Therapeutic Range: INR 2 to 3 (Target INR of 2.5) Note: For patients treated with VKA drugs, such as warfarin, the [place] College of Chest Physicians 2012 Guideline recommends [...] Chest 2012, 141:7S-47S Kevin RA, et al. [facility] 2017, 70: 252-289 Performed By: #### PTTAC, 34 528-0 #### [facility] CLIA [id number] [address] [place] [address] [place] PTT, ANTICOAGULANT THERAPY Collected: 0 04/28/2025 1:45 AM Status: F Source: [facility] Order Comment: Specimen Type : BLOOD SPECIMEN Ordering Facility: [facility] Address: [address] [place], [place] [address] TYPE CODE TESTS RESULT OUT OF RANGE REFERENCE UNITS LAB 28828-1(LOINC) aPTT PPP 43.5 High 23.0-32.4 sec Performed By: #### PTTAC, 34 528-0 #### [facility] CLIA [id number] [address] [place] [address] [place] CBC PNL BLD AUTO Collected: 1:45 AM Status: F Source: [facility] Order Comment: Specimen Type : BLOOD SPECIMEN Ordering Facility: [facility] Address: [address] [place] [address] TYPE CODE TESTS RESULT OUT OF RANGE REFERENCE UNITS LAB 6690-2([facility]) WBC # Bld Auto 6.07 3.70-11.00 k/uL LAB 789-8(INC) RBC # Bld Auto 3.15 Low 4.20-6.00 m/uL LAB 718-7(LOINC) Hgb Bld-mCnc 8.7 Low 13.0-17.0 g/dL LAB 4544-3(INC) Hct VFr Bld Auto 29.3 Low 39.0-51.0 % LAB 787-2(LOINC) MCV RBC Auto 93.0 80.0-100.0 fL LAB 785-6(LOINC) MCH RBC Qn Auto 27.6 26.0-34.0 pg LAB 786-4(LOINC) MCHC RBC Auto-mCnc 29.7 Low 30.5-36.0 g/dL LAB 64858-5(LOINC) RDW RBC-Rto 19.1 High 11.5-15.0 % LAB 777-3(INC) Platelet # Bld Auto 326 150-400 k/uL LAB 40742-5([facility]) PMV Bld Auto 10.7 9.0-12.7 fL LAB 771-6(INC) nRBC # Bld Auto <0.01 <0.01 k/uL Performed By: #### 07804-8 # ### [facility] CLIA [id number] [address] [place] [address] [place] RENAL FUNC 2000 PNL SERPL Collected: 1:45 AM Status: F Source: [facility] Order Comment: Specimen Type : BLOOD SPECIMEN Ordering Facility: [facility] Address: [facility] [place] [address] TYPE CODE TESTS RESULT OUT OF RANGE REFERENCE UNITS LAB 1751-7(LOINC) Albumin SerPl-mCnc 3.2 Low 3.9-4.9 g/dL LAB 15386-5(LOINC) Calcium SerPl-mCnc 8.3 Low 8.5-10.2 mg/dL LAB 2777-1(LOINC) Phosphate SerPl-mCnc 4.0 2.7-4.8 mg/dL LAB 2345-7(LOINC) Glucose SerPl-mCnc 75 74-99 mg/dL Result Comment: The [place] Diabetes Association (ADA) provides guidance for cutoff [...] Standards of Medical Care in Diabetes 2016, [place] Diabetes Association. Diabetes Care. 2016.39(Suppl 1). LAB 3094-0(LOINC) BUN SerPl-mCnc 14 9-24 mg/dL LAB 2160-0(LOINC) Creat SerPl-mCnc 4.74 High 0.73-1.22 mg/dL LAB 2951-2(LOINC) Sodium SerPl-sCnc 136 136-144 mmol/L LAB 2823-3(LOINC) Potassium SerPl-sCnc 4.8 3.7-5.1 mmol/L LAB 2075-0(LOINC) Chloride SerPl-sCnc 95 Low 98-107 mmol/L LAB 2027-9(LOINC) CO2 SerPl-sCnc 22 22-30 mmol/L LAB 53896-4(LOINC) Anion Gap SerPl-sCnc 19 High 8-15 mmol/L LAB 57238-9(LOINC) eGFRcr SerPlBld CKD-EPI 2020 15 Low >=60 [...] accurately reflect actual GFR. Performed By: #### 07832-4 # ### [facility] CLIA [id number] [address] [place] [address] [place] PTT, ANTICOAGULANT THERAPY Collected: 0 04/27/2025 7:45 PM Status: F Source: [facility] Order Comment: Specimen Type : BLOOD SPECIMEN Ordering Facility: [facility] Address: [address] [place] [address] TYPE CODE TESTS RESULT OUT OF RANGE REFERENCE UNITS LAB 24529-7(LOINC) aPTT PPP 53.5 High 23.0-32.4 sec Performed By: #### PTTAC ### # [facility] CLIA [id number] [address] [place] [address] [place] CONSULT PROG Observed: 04/27/2025 3:59 PM Status: COMPLETED Source: [facility] HNO ID: [id number] Author: BHAKTI KIRBY MD Service: Dermatology Author [...] proliferation, immunohistochemical staining is performed at the [facility] on block A1 with appropriate controls. [...] these Patient seen and discussed with attending price checker, Dr. Gregory Beltran MD Dermatology PGY-3 04/27/2025 3:59 PM Please use consult pager [phone], Mon-Fri 8am-5pm. Please call electric truck crane operator for on-call resident/pager during all other hours. PTT, ANTICOAGULANT THERAPY Collected: 0 04/27/2025 2:25 PM Status: F Source: [facility] Order Comment: Specimen Type : BLOOD SPECIMEN Ordering Facility: [facility] Address: [address] [place] [address] TYPE CODE TESTS RESULT OUT OF RANGE REFERENCE UNITS LAB 03710-4(LOINC) aPTT PPP 40.9 High 23.0-32.4 sec Performed By: #### PTTAC ### # [facility] CLIA [id number] [address] [facility] [place] [address] [place] CONSULT PROG Observed: 04/27/2025 2:05 PM Status: COMPLETED Source: [facility] HNO ID: [id number] Author: ELVA PATEL APRN.INDUSTRIAL TECHNOLOGIST Service: ? Author Type: Nurse Practitioner Type: Consult Progress Note Filed: 04/27/2025 14:10 Note Text: Department of Kidney Medicine Medical Specialties [place] [facility] NEPHROLOGY CONSULT SERVICE PROGRESS NOTE INTERVAL [...] 20 Gauge -- days Peripheral 04/26/25 2[facility] Right Forearm 20 Gauge <1 day Labs: [...] 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, PR, PE, CVA, CHB, colitis, Adjustment Disorder With Depressed Mood, MSSA bacteremia, Proximal Colon Ulcer, Hypothyroidism, Intra-Abdominal Varices, , S/P MAZE procedure, skin ulcers, GERD, YEIMY, DVTs Patient presented to [facility] on 04/20/25 with chief complaint of bloody [...] of first HD: 2005 -Current HD unit: [facility] -Loading Dock Hand: Dr Melendez -Schedule: Fri-Fri-Fri -Time: 4.5 hrs -EDW: 114 kg -Date of last outpatient dialysis: 04/18/25 -Access: R IJ TDC 2.Electrolytes/acid-base: -stable, modulating with TECHNICAL SALES ASSOCIATE 3.Blood Pressure/Volume Status: -BP 113/58 - SBP [...] 10 ml/min Outpatient dialysis disposition plan: contact [phone] and ask to speak with the help desk consultant as needed for assistance with post-discharge arrangements. Please DO NOT schedule patient for a nephrology follow up appointment. Kidney care will be provided by the primary member of technical staff at their dialysis unit upon hospital discharge. Elva Patel APRN.INDUSTRIAL TECHNOLOGIST Nephrology and Hypertension [facility] April 27, 2025 2:05 PM PAGER # [phone] Disclosures: Parts of the current progress note may have been copied from a previous note. FOR AFTER HOUR CONCERNS BETWEEN 5PM - 7AM CONTACT ON-CALL NEPHROLOGY FELLOW [phone] CONSULT Observed: 04/27/2025 1:54 PM Status: COMPLETED Source: [facility] HNO ID: [id number] Author: MYRIAM WARD APRN.CNP Service: Plastic Surgery [...] (HCC) 2005 ESRD from HTN Dialysis M,W,F [facility] [phone] Essential hypertension, benign 1998 EKG 09/30 NL. Hearing loss of both ears History of mitral valve stenosis Hx of bacterial endocarditis Hyperparathyroidism due to end stage renal disease on dialysis (HCC) Kidney disease 2005 ESRD due to HTN; on IHD since 2005 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 and scoliosis h/o this 3 y. Dx by xray. Mechanical complication of arteriovenous fistula surgically created ([facility]) Mechanical complication of dialysis catheter ([facility]) Mitral valve disease Morbid obesity ([facility]) MS (mitral stenosis) 10/08/2018 Transesophageal US YEIMY on CPAP Paroxysmal atrial fibrillation ([facility]) PE (pulmonary thromboembolism) ([facility]) Pelvic mass Pseudoaneurysm of AV hemodialysis fistula ([facility]) Wound of right side of back from friction/rubbing of jacket, goes to wound care center in [place] PAST SURGICAL HISTORY Procedure Laterality Date ARTERIOVENOUS FISTULA Left 08/29/2010 CAPSULE ENDOSCOPY 07/01/2023 CARDIOVERSION-ELECTIVE N/A 12/03/2018 200 joules synchronized - successful COLONOSCOPY 07/01/2023 EGD 06/27/2023 HERNIA REPAIR HX PAST SURGICAL HISTORY OF 08/29/2010 dialysis fistula left arm PAST SURGICAL HISTORY OF Right 03/2019 Right leg femoral vein to superficial femoral artery loop graft mid thigh REPAIR CLEFT LIP RMVL LEANN CVC W/O SUBQ PORT/BANQUET STEWARDESS 01/17/2013 SHX CARDIAC RADIOFREQUENCY ABLATION 08/21/2021 s/p [...] SIGNATURE: Myriam Ward APRN.CNP PATIENT NAME: Elia Wseton DATE: April 27, 2025 TIME: 1:54 PM PAGER: [phone] After 430PM AND on weekends, please page [phone] (Plastic Surgery on-call) NUTRITION Observed: 04/27/2025 11:58 AM Status: COMPLETED Source: [facility] HNO ID: [id number] Author: NABILA CHARLES DTR Service: Nutrition Therapy Author Type: Java Engineer Type: Nutrition Filed: 04/27/2025 12:03 Note Text: NUTRITION THERAPY AGRICULTURAL SERVICE TECHNICIAN NOTE SERVICE DATE: 04/27/2025 SERVICE TIME: 1158 [...] 0 04/27/2025 7:04 AM Status: F Source: [facility] Order Comment: Specimen Type : BLOOD SPECIMEN Ordering Facility: [facility] Address: [address] [place] [address] TYPE CODE TESTS RESULT OUT OF RANGE REFERENCE UNITS LAB 04325-8(LOINC) aPTT PPP 49.2 High 23.0-32.4 sec Performed By: #### PTTAC ### # [facility] CLIA [id number] [address] [place] [address] [place] PROGRESS Observed: 04/27/2025 5:08 AM Status: COMPLETED Source: [facility] HNO ID: [id number] Author: MARYLIN RAYMOND MD Service: General Internal Medicine Author Type: Resident Type: Progress Notes Filed: 04/27/2025 16:15 Note Text: Attestation signed by Marylin Raymond MD at 04/27/2025 4:15 PM [facility] STAFF PHYSICIAN NOTE OF PERSONAL INVOLVEMENT IN [...] placement with INR goal 2.5-3.5 # Poor longterm prognosis -S/p vit k 5mg PO, subsequent [...] 1980; 45 year old HOSPITAL ROOM: G[facility]/G090-33 DATE OF SERVICE: 04/27/2025 ATTENDING PHYSICIAN: Marylin [...] 20 Gauge -- days Peripheral 04/26/25 2[facility] Right Forearm 20 Gauge <1 day Active [...] management of bleeding, and on transfer to [facility], patient began to have significant bleeding from [...] #Chronic Hypotension #Secondary Hyperparathyroidism - iHD at [facility] through R. Tunneled HD catheter MWF - [...] PPP Collected: 12:28 AM Status: F Source: [facility] Order Comment: Specimen Type : BLOOD SPECIMEN Ordering Facility: [facility] Address: [address] [place] [address] TYPE CODE TESTS RESULT OUT OF RANGE REFERENCE UNITS LAB 5902-2(LOINC) Prothrombin time 17.5 High 9.7-13.0 sec LAB 6301-6(LOINC) INR PPP 1.7 High 0.9-1.3 Result Comment: Vitamin K An tagonist (VKA) Therapeutic Range: INR 2 to 3 (Target INR of 2.5) Note: For patients treated with VKA drugs, such as warfarin, the [place] College [employer] Chest [employer]icians 2012 Guideline recommends [...] JACC 2017, 70: 252-289 Performed By: #### 75571-4, PTTAC #### [facility] CLIA [id number] [address] [place] [address] [place] PTT, ANTICOAGULANT THERAPY Collected: 0 04/27/2025 12:28 AM Status: F Source: [facility] Order Comment: Specimen Type : BLOOD SPECIMEN Ordering Facility: [facility] Address: [address] [place] [address] TYPE CODE TESTS RESULT OUT OF RANGE REFERENCE UNITS LAB 65319-4(LOINC) aPTT PPP 43.0 High 23.0-32.4 sec Performed By: #### 99422-8, PTTAC #### [facility] CLIA [id number] [address] [place] [address] [place] [id number] [facility] RENAL FUNC 2000 PNL SERPL Collected: 12:28 AM Status: F Source: [facility] Order Comment: Specimen Type : BLOOD SPECIMEN Ordering Facility: [facility] Address: [address] [place] [address] TYPE CODE TESTS RESULT OUT OF RANGE REFERENCE UNITS LAB 1751-7(LOINC) Albumin SerPl-mCnc 3.6 Low 3.9-4.9 g/dL LAB 78718-2(LOINC) Calcium SerPl-mCnc 8.2 Low 8.5-10.2 mg/dL LAB 2777-1(LOINC) Phosphate SerPl-mCnc 4.8 2.7-4.8 mg/dL LAB 2345-7(LOINC) Glucose SerPl-mCnc 72 Low 74-99 mg/dL Result Comment: The [place] Diabetes Association (ADA) provides guidance for cutoff [...] Standards of Medical Care in Diabetes 2016, [place] Diabetes Association. Diabetes Care. 2016.39(Suppl 1). LAB 3094-0(LOINC) BUN SerPl-mCnc 24 9-24 mg/dL LAB 2160-0(LOINC) Creat SerPl-mCnc 6.69 High 0.73-1.22 mg/dL LAB 2951-2(LOINC) Sodium SerPl-sCnc 136 136-144 mmol/L LAB 2823-3(LOINC) Potassium SerPl-sCnc 4.6 3.7-5.1 mmol/L LAB 2075-0(LOINC) Chloride SerPl-sCnc 94 Low 98-107 mmol/L LAB 2028-9(LOINC) CO2 SerPl-sCnc 22 22-30 mmol/L LAB 50272-3(LOINC) Anion Gap SerPl-sCnc 20 High 8-15 mmol/L LAB 66608-1(LOINC) eGFRcr SerPlBld CKD-EPI 2020 10 Low >=60 [...] accurately reflect actual GFR. Performed By: #### 22519-4 # ### [facility] CLIA [id number] [address] [place] [address] [place] [facility] CBC PNL BLD AUTO Collected: 5 12:27 AM Status: F Source: [facility] Order Comment: Specimen Type : BLOOD SPECIMEN Ordering Facility: [facility] Address: [address] [place] [address] TYPE CODE TESTS RESULT OUT OF RANGE REFERENCE UNITS LAB 6690-2(LOINC) WBC # Bld Auto 5.86 3.70-11.00 k/uL LAB 789-8(LOINC) RBC # Bld Auto 3.43 Low 4.20-6.00 m/uL LAB 718-7(LOINC) Hgb Bld-mCnc 9.4 Low 13.0-17.0 g/dL LAB 4544-3(LOINC) Hct VFr Bld Auto 31.8 Low 39.0-51.0 % LAB 787-2(LOINC) MCV RBC Auto 92.7 80.0-100.0 fL LAB 785-6([facility]) MCH RBC Qn Auto 27.4 26.0-34.0 pg LAB 786-4([facility]) MCHC RBC Auto-mCnc 29.6 Low 30.5-36.0 g/dL LAB 79651-0([facility]) RDW RBC-Rto 19.3 High 11.5-15.0 % LAB 777-3([facility]) Platelet # Bld Auto 354 150-400 k/uL LAB 62214-3([facility]) PMV Bld Auto 10.5 9.0-12.7 fL LAB 771-6([facility]) nRBC # Bld Auto <0.01 <0.01 k/uL Performed By: #### 06818-9, 273-8 #### [facility] CLIA [id number] [address] [place] [address] [place] PTH-INTACT SERPL-MCNC Collected: 2024 12:27 AM Status: F Source: [facility] Order Comment: Specimen Type : BLOOD SPECIMEN Ordering Facility: [facility] Address: [address] [place] [address] TYPE CODE TESTS RESULT OUT OF RANGE REFERENCE UNITS LAB 2731-8([facility]) PTH-Intact SerPl-mCnc 578 High 15-65 pg/mL Performed By: #### 05127-3, 2730-8 #### [facility] CLIA [id number] [address] [place] [address] [place] FATTY ACIDS PROFILE, ESSENTIAL Collected: 04/27/2025 12:27 AM Status: F Source: [facility] Order Comment: Specimen Type : BLOOD SPECIMEN Ordering Facility: [facility] Address: [address] [place] [address] TYPE CODE TESTS RESULT OUT OF RANGE [...] Scanned Documents link when available. LAB LINOHG [id number] View results in Scanned Documents link [...] #### CFAPRO ## ## [facility] CLIA [id number] [address] [place] [address] CBC PNL BLD AUTO Collected: 9:16 PM Status: F Source: [facility] Order Comment: Specimen Type : BLOOD SPECIMEN Ordering Facility: [facility] Address: [address] [place] [address] TYPE CODE TESTS RESULT OUT OF RANGE [...] MCHC RBC Auto-mCnc 31.0 30.5-36.0 g/dL LAB 77309-0(LOINC) RDW RBC-Rto 19.0 High 11.5-15.0 % LAB 777-3(LOINC) Platelet # Bld Auto 325 150-400 k/uL LAB 41503-4(LOINC) PMV Bld Auto 10.3 9.0-12.7 fL LAB 771-6(LOINC) nRBC # Bld Auto <0.01 <0.01 k/uL Performed By: #### 17871-6 # ### [facility] CLIA [id number] [address] [place] [address] [place] [address] [place] PT PNL PPP Collected: 04/26/2025 9:15 PM Status: F Source: [facility] Order Comment: Specimen Type : BLOOD SPECIMEN Ordering Facility: [facility] Address: [address] [place], [place] [address] TYPE CODE TESTS RESULT OUT OF RANGE REFERENCE UNITS LAB 5902-2(LOINC) Prothrombin time 17.6 High 9.7-13.0 sec LAB 6301-6(LOINC) INR PPP 1.7 High 0.9-1.3 Result Comment: Vitamin K An tagonist (VKA) Therapeutic Range: INR 2 to 3 (Target INR of 2.5) Note: For patients treated with VKA drugs, such as warfarin, the [place] College of [employer]icians 2012 Guideline recommends [...] JAC 2017, 70: 252-289 Performed By: #### 24062-2, 54052-3 #### [facility] CLIA [id number] [address] [place] [address] [place] APTT PPP Collected: 9:15 PM Status: F Source: [facility] Order Comment: Specimen Type : BLOOD SPECIMEN Ordering Facility: [facility] Address: [address] [place] [address] TYPE CODE TESTS RESULT OUT OF RANGE REFERENCE UNITS LAB 90723-0(INC) aPTT PPP 41.2 High 23.0-32.4 sec Performed By: #### 89405-4, 87311-3 #### [facility] CLIA [id number] [address] [place] [address] [place] NURSING PROG Observed: 04/26/2025 6:36 PM Status: COMPLETED Source: [facility] HNO ID: [id number] Author: AILEEN WALSH RN Service: Nursing Author [...] morning and had to send a backup laborer beam house. MD Dayan Kc notified at 1729 and Jeffrey christianson notified at 1839. NURSING PROG Observed: 04/26/2025 6:33 PM Status: COMPLETED Source: [facility] HNO ID: [id number] Author: AILEEN WALSH RN Service: Nursing Author [...] Observed: 04/26/2025 4:45 PM Status: COMPLETED Source: [facility] HNO ID: [id number] Author: BHAKTI KIRBY MD Service: Dermatology Author [...] proliferation, immunohistochemical staining is performed at the [facility] on block A1 with appropriate controls. [...] these Patient seen and discussed with attending price checker, Dr. Gregory Beltran MD Dermatology PGY-3 04/26/2025 4:48 PM Please use consult pager [phone], Mon-Fri 8am-5pm. Please call electric truck crane operator for on-call resident/pager during all other hours. CASE MANAGEM Observed: 04/26/2025 3:44 PM Status: COMPLETED Source: [facility] HNO ID: [id number] Author: VICENTA TORRES LSW Service: Care Management Author Type: Water Supply Technician Type: Care Mgt Progress Note Filed: 04/26/2025 [...] She reports pt is active in his confucianist and receives a lot of support from [...] AUTO Collected: 2:01 PM Status: F Source: [facility] Order Comment: Specimen Type : BLOOD SPECIMEN Ordering Facility: [facility] Address: [address] [place] [address] TYPE CODE TESTS RESULT OUT OF RANGE [...] RBC Auto-mCnc 29.4 Low 30.5-36.0 g/dL LAB 65169-6(LOINC) RDW RBC-Rto 19.6 High 11.5-15.0 % LAB 777-3(LOINC) Platelet # Bld Auto 314 150-400 k/uL LAB 25015-2(LOINC) PMV Bld Auto 10.2 9.0-12.7 fL LAB 771-6(LOINC) nRBC # Bld Auto <0.01 <0.01 k/uL Performed By: #### 38363-3 # ### [facility] CLIA [id number] [address] [place] [address] OF [facility] VITAMIN C Collected: 5 2:01 PM Status: F Source: [facility] Order Comment: Specimen Type : BLOOD SPECIMEN Ordering Facility: [facility] Address: [address] [place] [address] TYPE CODE TESTS RESULT OUT OF RANGE [...] developed and its performance characteristics determined by [facility]. It has not been cleared or approved by the US Food and Drug Administration. This test was performed in a CLIA certified laboratory and is intended for clinical purposes. Performed By: [facility] [address] [place] [address] Adjunct Psychology Faculty Member: Nancy Brian MD, PhD CLIA Number: [id number] Performed By: #### VITC #### [facility] CLIA [id number] [address] [place] [address] VITAMIN B6/PYRIDOXIN Collected: 2:01 PM Status: F Source: [facility] Comment: Specimen Type : BLOOD SPECIMEN Ordering Facility: [facility] Address: [address] [place], [place] [address] TYPE CODE TESTS RESULT OUT OF RANGE REFERENCE UNITS LAB VITB6 VITAMIN B6 8.1 Low 20.0-125.0 nmol/L Result Comment: INTERPRETIVE INFORMATION: Vitamin B6 (Pyridoxal 5-Phosphate) Pyridoxal 5'-phosphate measured in a specimen collected following an 8-hour or overnight fast accurately indicates vitamin B6 nutritional status. Non-fasting specimen concentration reflects recent vitamin intake. This test was developed and its performance characteristics determined by [facility]. It has not been cleared or approved by the US Food and Drug Administration. This test was performed in a CLIA certified laboratory and is intended for clinical purposes. Performed By: [facility] [address] [place] [address] Adjunct Psychology Faculty Member: Nancy Brian MD, PhD CLIA Number: [id number] Performed By: #### VITB6 ### # [facility] CLIA [id number] [address] [place] [address] RENAL FUNC 2000 PNL SERPL Collected: 2:01 PM Status: F Source: [facility] Comment: Specimen Type : BLOOD SPECIMEN Ordering Facility: [facility] Address: [address] [place] [address] TYPE CODE TESTS RESULT OUT OF RANGE REFERENCE UNITS LAB 1751-7(LOINC) Albumin SerPl-mCnc 3.3 Low 3.9-4.9 g/dL LAB 55458-2(LOINC) Calcium SerPl-mCnc 8.2 Low 8.5-10.2 mg/dL LAB 2777-1(LOINC) Phosphate SerPl-mCnc 4.5 2.7-4.8 mg/dL LAB 2345-7(LOINC) Glucose SerPl-mCnc 72 Low 74-99 mg/dL Result Comment: The [place] Diabetes Association (ADA) provides guidance for cutoff [...] Standards of Medical Care in Diabetes 2016, [place] Diabetes Association. Diabetes Care. 2016.39(Suppl 1). LAB 3094-0(LOINC) BUN SerPl-mCnc 20 9-24 mg/dL LAB 2160-0(LOINC) Creat SerPl-mCnc 5.73 High 0.73-1.22 mg/dL LAB 2951-2(LOINC) Sodium SerPl-sCnc 137 136-144 mmol/L LAB 2823-3(LOINC) Potassium SerPl-sCnc 4.7 3.7-5.1 mmol/L LAB 2075-0(LOINC) Chloride SerPl-sCnc 95 Low 98-107 mmol/L LAB 202-9(LOINC) CO2 SerPl-sCnc 26 22-30 mmol/L LAB 38196-0(LOINC) Anion Gap SerPl-sCnc 16 High 8-15 mmol/L LAB 47528-7(LOINC) eGFRcr SerPlBld CKD-EPI 2020 12 Low >=60 [...] accurately reflect actual GFR. Performed By: #### 92933-5 # ### [facility] CLIA [id number] [address] [place] [address] [place] PT PNL PPP Collected: 04/26/2025 2:01 PM Status: F Source: [facility] Comment: Specimen Type : BLOOD SPECIMEN Ordering Facility: [facility] Address: [address] [place] [address] TYPE CODE TESTS RESULT OUT OF RANGE REFERENCE UNITS LAB 5902-2(LOINC) Prothrombin time 19.8 High 9.7-13.0 sec LAB 6301-6(LOINC) INR PPP 1.9 High 0.9-1.3 Result Comment: Vitamin K An tagonist (VKA) Therapeutic Range: INR 2 to 3 (Target INR of 2.5) Note: For patients treated with VKA drugs, such as warfarin, the [place] College [employer]icians 2012 Guideline recommends [...] JACC 2017, 70: 252-289 Performed By: #### 75416-6 # ### [facility] CLIA [id number] [address] [place] [address] [place] PROGRESS Observed: 04/26/2025 5:10 AM Status: COMPLETED Source: [facility] ID: [id number] Author: MARYLIN RAYMOND MD Service: General Internal [...] placement with INR goal 2.5-3.5 # Poor intermediate card tender prognosis PLAN: S/p vit k 5mg PO, [...] management of bleeding, and on transfer to [facility], patient began to have significant bleeding from [...] #Chronic Hypotension #Secondary Hyperparathyroidism - iHD at [facility] through R. Tunneled HD catheter MWF - [...] Observed: 04/25/2025 2:14 PM Status: COMPLETED Source: [facility] HNO ID: [id number] Author: ELVA PATEL APRN.INDUSTRIAL TECHNOLOGIST Service: ? Author Type: Nurse Practitioner Type: Consult Progress Note Filed: 04/25/2025 14:34 Note Text: Department of Kidney Medicine Medical Specialties [place] [facility] NEPHROLOGY CONSULT SERVICE PROGRESS NOTE INTERVAL [...] 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, PR, PE, CVA, CHB, colitis, Adjustment Disorder With Depressed Mood, MSSA bacteremia, Proximal Colon Ulcer, Hypothyroidism, Intra-Abdominal Varices, , S/P MAZE procedure, skin ulcers, GERD, YEIMY, DVTs Patient presented to [facility] 04[facility]25 with chief complaint of bloody [...] HD: 2005 -Current HD unit: [facility] -Loading Dock Hand: Dr Melendez -Schedule: Fri-Fri-Fri -Time: 4.5 hrs -EDW: 114 kg -Date of last outpatient dialysis: 04/18/25 -Access: R IJ TDC 2.Electrolytes/acid-base: -stable, modulating with TECHNICAL SALES ASSOCIATE 3.Blood Pressure/Volume Status: -BP 113/58 - SBP [...] 10 ml/min Outpatient dialysis disposition plan: contact [phone] and ask to speak with the help desk consultant as needed for assistance with post-discharge arrangements. Please DO NOT schedule patient for a nephrology follow up appointment. Kidney care will be provided by the primary member of technical staff at their dialysis unit upon hospital discharge. Elva Patel APRN.[facility] Nephrology and Hypertension [facility] April 25, 2025 2:14 PM PAGER # [phone] Disclosures: Parts of the current progress note may have been copied from a previous note. FOR AFTER HOUR CONCERNS BETWEEN 5PM - 7AM CONTACT ON-CALL NEPHROLOGY FELLOW [phone] CONSULT PROG Observed: 04/25/2025 1:51 PM Status: COMPLETED Source: [facility] HNO ID: [id number] Author: ANNIE UREÑA RPh Service: Pharmacy Author [...] Observed: 04/25/2025 11:36 AM Status: COMPLETED Source: [facility] HNO ID: [id number] Author: BHAKTI KIRBY MD Service: Dermatology Author [...] proliferation, immunohistochemical staining is performed at the [facility] on block A1 with appropriate controls. [...] to assess response Patient discussed with attending price checker, Dr. Gregory Beltran MD April 25, 2025 11:36 AM Please use consult pager [phone], Mon-Fri 8am-5pm. Please call electric truck crane operator for on-call resident/pager during all other hours. TYPE + SCREEN Collected: 04/25/2025 10:33 AM Status: F Source: [facility] Order Comment: Specimen Type : BLOOD SPECIMEN Ordering Facility: [facility] Address: [address] [place] [address] TYPE CODE TESTS RESULT OUT OF RANGE REFERENCE UNITS LAB [id number] ABO B LAB [id number] RH Positive LAB [id number] ANTIBODY SCREEN Negative LAB [id number] TYPE AND SCREEN EXPIRATION 04/28/2025 23:59 Performed By: #### TSCR #### [facility] CLIA [id number] [address] [place] [address] [place] APTT PPP Collected: 10:33 AM Status: F Source: [facility] Order Comment: Specimen Type : BLOOD SPECIMEN Ordering Facility: [facility] Address: [address] [place] [address] TYPE CODE TESTS RESULT OUT OF RANGE REFERENCE UNITS LAB 84916-3(LOINC) aPTT PPP 75.7 High 23.0-32.4 sec Performed By: #### 29061-6, 42527-9 #### [facility] CLIA [id number] [address] [place] [address] [place] PT PNL PPP Collected: 10:33 AM Status: F Source: [facility] Comment: Specimen Type : BLOOD SPECIMEN Ordering Facility: [facility] Address: [address] [place] [address] TYPE CODE TESTS RESULT OUT OF RANGE REFERENCE UNITS LAB 5902-2(LOINC) Prothrombin time 51.1 High 9.7-13.0 sec LAB 6301-6(LOINC) INR PPP 5.3 High 0.9-1.3 Result Comment: Vitamin K An tagonist (VKA) Therapeutic Range: INR 2 to 3 (Target INR of 2.5) Note: For patients treated with VKA drugs, such as warfarin, the [place] [employer]icians 2012 Guideline recommends [...] JAC 2017, 70: 252-289 Performed By: #### 40405-5, 37454-8 #### [facility] CLIA [id number] [address] [place], [place] [address] [place] [address] [place] RENAL FUNC 2000 PNL SERPL Collected: 8:00 AM Status: F Source: [facility] Order Comment: Specimen Type : BLOOD SPECIMEN Ordering Facility: [facility] Address: [address] [place] [address] TYPE CODE TESTS RESULT OUT OF RANGE REFERENCE UNITS LAB 1751-7(LOINC) Albumin SerPl-mCnc 3.1 Low 3.9-4.9 g/dL LAB 28019-3(LOINC) Calcium SerPl-mCnc 7.8 Low 8.5-10.2 mg/dL LAB 2777-1(LOINC) Phosphate SerPl-mCnc 5.5 High 2.7-4.8 mg/dL LAB 2345-7(LOINC) Glucose SerPl-mCnc 68 Low 74-99 mg/dL Result Comment: The [place] Diabetes Association (ADA) provides guidance for cutoff [...] Standards of Medical Care in Diabetes 2016, [place] Diabetes Association. Diabetes Care. 2016.39(Suppl 1). LAB 3094-0(LOINC) BUN SerPl-mCnc 26 High 9-24 mg/dL LAB 2160-0(LOINC) Creat SerPl-mCnc 7.04 High 0.73-1.22 mg/dL LAB 2951-2(LOINC) Sodium SerPl-sCnc 135 Low 136-144 mmol/L LAB 2823-3(LOINC) Potassium SerPl-sCnc 4.8 3.7-5.1 mmol/L LAB 5-0(LOINC) Chloride SerPl-sCnc 95 Low 98-107 mmol/L LAB 2027-(LOINC) CO2 SerPl-sCnc 23 22-30 mmol/L LAB 32844-7(LOINC) Anion Gap SerPl-sCnc 17 High 8-15 mmol/L LAB 05878-9(LOINC) eGFRcr SerPlBld CKD-EPI 2020 9 Low >=60 [...] accurately reflect actual GFR. Performed By: #### 09931-4 # ### [facility] CLIA [id number] [address] [place] [address] [place] CBC PNL BLD AUTO Collected: 5 7:51 AM Status: F Source: [facility] Order Comment: Specimen Type : BLOOD SPECIMEN Ordering Facility: [facility] Address: [address] [place] [address] TYPE CODE TESTS RESULT OUT OF RANGE [...] MCHC RBC Auto-mCnc 30.7 30.5-36.0 g/dL LAB 10531-5(LOINC) RDW RBC-Rto 19.4 High 11.5-15.0 % LAB 777-3(LOINC) Platelet # Bld Auto 281 150-400 k/uL LAB 94640-9(LOINC) PMV Bld Auto 10.5 9.0-12.7 fL LAB 771-6(LOINC) nRBC # Bld Auto <0.01 <0.01 k/uL Performed By: #### 22519-5 # ### [facility] CLIA [id number] [address] [place] [address] OF [facility] PROGRESS Observed: 04/25/2025 5:55 AM Status: COMPLETED Source: [facility] HNO ID: [id number] Author: MARYLIN RAYMOND MD Service: General Internal Medicine Author Type: Resident Type: Progress Notes Filed: 04/25/2025 23:48 Note Text: Attestation signed by Marylin Raymond MD at 04/25/2025 11:48 PM [facility] STAFF PHYSICIAN NOTE OF PERSONAL INVOLVEMENT IN [...] management of bleeding, and on transfer to [facility], patient began to have significant bleeding from [...] #Chronic Hypotension #Secondary Hyperparathyroidism - iHD at [facility] through R. Tunneled HD catheter MWF - [...] Collected: 04/24/2025 5:16 PM Status: F Source: [facility] Order Comment: Specimen Type : BLOOD SPECIMEN Ordering Facility: [facility] Address: [address] [place] [address] TYPE CODE TESTS RESULT OUT OF RANGE REFERENCE UNITS LAB 5902-2(LOINC) Prothrombin time 51.7 High 9.7-13.0 sec LAB 6301-6(LOINC) INR PPP 5.4 High 0.9-1.3 Result Comment: Vitamin K An tagonist (VKA) Therapeutic Range: INR 2 to 3 (Target INR of 2.5) Note: For patients treated with VKA drugs, such as warfarin, the [place] College [employer]icians 2012 Guideline recommends [...] Chest 2012, 141:7S-47S Kevin RA, et al. [facility] 2017, 70: 252-289 Sample checked for clot. Result rechecked. Performed By: #### 86181-7 # ### [facility] CLIA [id number] [address] [place] [address] OF [facility] ZINC SERPL-MCNC Collected: 4:30 PM Status: F Source: [facility] Order Comment: Specimen Type : BLOOD SPECIMEN Ordering Facility: [facility] Address: [address] [place] [address] TYPE CODE TESTS RESULT OUT OF RANGE REFERENCE UNITS LAB 5763-8(LOINC) Zinc SerPl-mCnc 69 60-120 ug/dL Result Comment: This test wa s developed, and its performance characteristics determined by the [facility] Department of Pathology and Laboratory Medicine. It has not been cleared or approved by the FDA. The [facility] Department of Pathology and Laboratory Medicine is regulated under CLIA as qualified to perform high-complexity testing. This test is used for clinical purposes. It should not be regarded as investigational or for research. Performed By: #### 5763-8 ## ## [facility] CLIA [id number] [address] [place] [address] [place] PROGRESS Observed: 04/24/2025 7:34 AM Status: COMPLETED Source: [facility] HNO ID: [id number] Author: MARYLIN RAYMOND MD Service: General Internal Medicine Author Type: Resident Type: Progress Notes Filed: 04/24/2025 15:20 Note Text: Attestation signed by Marylin Raymond MD at 04/24/2025 3:20 PM (Updated) [facility] STAFF PHYSICIAN NOTE OF PERSONAL INVOLVEMENT IN [...] placement with INR goal 2.5-3.5 # Poor intermediate card tender prognosis PLAN: Transfuse pRBC, Hb goal ~ [...] 6 1980; 45 year old HOSPITAL ROOM: [place] [address]/G090- DATE OF SERVICE: April 23, 2025 ATTENDING [...] 04/23/25 0659 04/23/25699 - 04/24/25 0659 Shift 0953-8061 2581-6629 8786-9770 24 Hour Total 2473-9824 8917-1344 3771-8001 24 Hour Total INTAKE [address] 240 [...] management of bleeding, and on transfer to [facility], patient began to have significant bleeding from [...] #Chronic Hypotension #Secondary Hyperparathyroidism - iHD at [facility] through R. Tunneled HD catheter MWF [...] SERPL-MCNC Collected: 6:45 AM Status: F Source: [facility] Order Comment: Specimen Type : BLOOD SPECIMEN Ordering Facility: [facility] Address: [address] [place] [address] TYPE CODE TESTS RESULT OUT OF RANGE REFERENCE UNITS LAB 2923-1(LOINC) Vit A SerPl-mCnc 0.10 Low 0.30-1.20 mg/L Result Comment: This test wa s developed, and its performance characteristics determined by the [facility] Department of Pathology and Laboratory Medicine. It has not been cleared or approved by the FDA. The [facility] Department of Pathology and Laboratory Medicine is regulated under CLIA as qualified to perform high-complexity testing. This test is used for clinical purposes. It should not be regarded as investigational or for research. Performed By: #### 2923-1 ## ## [facility] CLIA [id number] [address] [place] [address] [place] VIT B12 SERPL-MCNC Collected: 04/24/2025 6:45 AM Sta tus: F Source: [facility] Order Comment: Specimen Type : BLOOD SPECIMEN Ordering Facility: [facility] Address: [address] [place] [address] TYPE CODE TESTS RESULT OUT OF RANGE REFERENCE UNITS LAB 2132-9(LOINC) Vit B12 SerPl-mCnc >2000 High 232-1245 pg/mL Performed By: #### 2284-8, 2 132-9 #### [facility] CLIA [id number] [address] [place] [address] FOLATE SERPL-MCNC Collected: 04/24/2025 6:45 AM Stat us: F Source: [facility] Order Comment: Specimen Type : BLOOD SPECIMEN Ordering Facility: [facility] Address: [address] [place] [address] TYPE CODE TESTS RESULT OUT OF RANGE REFERENCE UNITS LAB 2284-8([facility]) Folate SerPl-mCnc 7.4 >4.7 ng/mL Performed By: #### 2284-8, 2 132-9 #### [facility] CLIA [id number] [address] [place] [address] [place] [employer] PNL BLD AUTO Collected: 6:45 AM Status: F Source: [facility] Order Comment: Specimen Type : BLOOD SPECIMEN Ordering Facility: [facility] Address: [address] [place] [address] TYPE CODE TESTS RESULT OUT OF RANGE [...] RBC Auto-mCnc 29.9 Low 30.5-36.0 g/dL LAB 23012-7(LOINC) RDW RBC-Rto 19.3 High 11.5-15.0 % LAB 777-3(LOINC) Platelet # Bld Auto 301 150-400 k/uL LAB 34437-1(LOINC) PMV Bld Auto 10.1 9.0-12.7 fL LAB 771-6(LOINC) nRBC # Bld Auto <0.01 <0.01 k/uL Performed By: #### 76813-1 # ### [facility] CLIA [id number] [address] [place] [address] [place] IRON+TIBC PNL SERPL Collected: 04/24/2025 6:[address] atus: F Source: [facility] Comment: Specimen Type : BLOOD SPECIMEN Ordering Facility: [facility] Address: [address] [place] [address] TYPE CODE TESTS RESULT OUT OF RANGE REFERENCE UNITS LAB 2498-4(LOINC) Iron SerPl-mCnc 26 Low 41-186 ug/dL LAB 2500-7(LOINC) TIBC SerPl-mCnc 137 Low 232-386 ug/dL LAB 30994-7(LOINC) Iron/TIBC SerPl-sRto 19.0 15.0-57.0 % Performed By: #### 63356-2, 01386-6, 6-4 #### [facility] CLIA [id number] [address] [place] [address] [place] FERRITIN SERPL-MCNC Collected: 04/24/20 6:45 AM Status: F Source: [facility] Comment: Specimen Type : BLOOD SPECIMEN Ordering Facility: [facility] Address: [address] [place] [address] TYPE CODE TESTS RESULT OUT OF RANGE REFERENCE UNITS LAB 2276-4(INC) Ferritin SerPl-mCnc 1288.0 High 30.3-565.7 ng/mL Performed By: #### 22064-1, 73493-7, 2276-4 #### [facility] CLIA [id number] [address] [place], [place] [address] [place] RENAL FUNC 2000 PNL SERPL Collected: 6:45 AM Status: F Source: [facility] Comment: Specimen Type : BLOOD SPECIMEN Ordering Facility: [facility] Address: [address] [place], [place] [id number] TYPE CODE TESTS RESULT OUT OF RANGE REFERENCE UNITS LAB 1751-7(LOINC) Albumin SerPl-mCnc 3.1 Low 3.9-4.9 g/dL LAB 31435-2(LOINC) Calcium SerPl-mCnc 8.7 8.5-10.2 mg/dL LAB 2777-1(LOINC) Phosphate SerPl-mCnc 4.0 2.7-4.8 mg/dL LAB 2345-7(LOINC) Glucose SerPl-mCnc 79 74-99 mg/dL Result Comment: The [place] Diabetes Association (ADA) provides guidance for cutoff [...] Standards of Medical Care in Diabetes 2016, [place] Diabetes Association. Diabetes Care. 2016.39(Suppl 1). LAB 3094-0(LOINC) BUN SerPl-mCnc 14 9-24 mg/dL LAB 2160-0(LOINC) Creat SerPl-mCnc 4.83 High 0.73-1.22 mg/dL Result Comment: Result reche cked. LAB 2951-2(LOINC) Sodium SerPl-sCnc 133 Low 136-144 mmol/L LAB 2823-3(LOINC) Potassium SerPl-sCnc 4.6 3.7-5.1 mmol/L LAB 2075-0(LOINC) Chloride SerPl-sCnc 94 Low 98-107 mmol/L LAB 2027-9(LOINC) CO2 SerPl-sCnc 23 22-30 mmol/L LAB 28437-1(LOINC) Anion Gap SerPl-sCnc 16 High 8-15 mmol/L LAB 29498-3(LOINC) eGFRcr SerPlBld CKD-EPI 2020 14 Low >=60 [...] accurately reflect actual GFR. Performed By: #### 70902-0, 74986-6, 2276-4 #### [facility] CLIA [id number] [address] [place] [address] [place] 25(OH)D3 [facility] Collected: 04/24/20 6:45 AM Status: F Source: [facility] Order Comment: Specimen Type : BLOOD SPECIMEN Ordering Facility: [facility] Address: [address] [place] [address] TYPE CODE TESTS RESULT OUT OF RANGE REFERENCE UNITS LAB 1988-11(LOINC) 25(OH)D3 [facility] 22.9 Low 31.0-80.0 ng/mL Result Comment: Classificati on of 25 [place] Vitamin D status: Deficiency/Insufficiency: < or = 30 ng/ml. Sufficiency/Optimal Levels: 31-80 ng/mL Toxicity: > 100 ng/mL. Test performed by chemiluminescent immunoassay. Performed By: #### 1989- ## ## [facility] CLIA [id number] [address] [place] [address] [place] CONSULT PROG Observed: 04/23/2025 6:00 PM Status: COMPLETED Source: [facility] HNO ID: [id number] Author: LELA SOLIMAN APRN.CNP Service: Nephrology Author Type: Nurse Practitioner Type: Consult Progress Note Filed: 04/23/2025 18:08 Note Text: Department of Kidney Medicine [facility] [place] CONSULT PROGRESS NOTE NEPHROLOGY Q6 SERVICE SERVICE [...] 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, PR, PE, CVA, hypotension on Midodrine, CHB, colitis, [...] of first HD: 2005 -Current HD unit: [facility] -Loading Dock Hand: Dr Melendez -Schedule: Fri-Fri-Fri -Time: 4.5 hrs -EDW: 114 kg -Date of last outpatient dialysis: 04/18/25 -Access: R IJ TDC 2.Electrolytes/acid-base: -Potassium >> stable >> controlled with TECHNICAL SALES ASSOCIATE 3K bath -Sodium stable -Metabolic acidosis modulated with TECHNICAL SALES ASSOCIATE and bicarb tabs 3.Blood Pressure/Volume Status: -BP [...] -Recommend stopping Bicarb tabs, can control with TECHNICAL SALES ASSOCIATE -Recommend PRN Midodrine with dialysis to support [...] 10 ml/min Outpatient dialysis disposition plan: contact [phone] and ask to speak with the help desk consultant as needed for assistance with post-discharge arrangements. Please DO NOT schedule patient for a nephrology follow up appointment. Kidney care will be provided by the primary member of technical staff at their dialysis unit upon hospital discharge. SIGNATURE: Lela Soliman APRN.INDUSTRIAL TECHNOLOGIST PATIENT NAME: Elia Weston DATE: April 23, 2025 TIME: 6:00 PM FOR AFTER HOUR CONCERNS BETWEEN 5PM - 7AM CONTACT ON-CALL NEPHROLOGY FELLOW [phone] Disclosures: Parts of the current progress note may have been copied from a previous note. PROGRESS Observed: 04/23/2025 1:59 PM Status: COMPLETED Source: [facility] ID: [id number] Author: MARYLIN RAYMOND MD Service: General Internal Medicine Author Type: Resident Type: Progress Notes Filed: 04/23/2025 17:41 Note Text: Attestation signed by Marylin Raymond MD at 04/23/2025 5:41 PM (Updated) [facility] STAFF PHYSICIAN NOTE OF PERSONAL INVOLVEMENT IN [...] 6 1980; 45 year old HOSPITAL ROOM: [place] [address] DATE OF SERVICE: April 23, 2025 ATTENDING [...] 0659 04/23/25 0700 - 04/24/25 0659 Shift [id number] [phone] [phone] 24 Hour Total 8285-8592 1899-1321 1191-5023 24 Hour Total INTAKE [address] 240 [...] management of bleeding, and on transfer to [facility], patient began to have significant bleeding from [...] #Chronic Hypotension #Secondary Hyperparathyroidism - iHD at [facility] through R. Tunneled HD catheter MWF - [...] SERPL Collected: 12:37 PM Status: F Source: [facility] Order Comment: Specimen Type : BLOOD SPECIMEN Ordering Facility: [facility] Address: [address] [place] [address] TYPE CODE TESTS RESULT OUT OF RANGE REFERENCE UNITS LAB 1751-7(LOINC) Albumin SerPl-mCnc 3.1 Low 3.9-4.9 g/dL LAB 11452-2(LOINC) Calcium SerPl-mCnc 8.3 Low 8.5-10.2 mg/dL LAB 2777-1(LOINC) Phosphate SerPl-mCnc 5.3 High 2.7-4.8 mg/dL LAB 2345-7(LOINC) Glucose SerPl-mCnc 94 74-99 mg/dL Result Comment: The [place] Diabetes Association (ADA) provides guidance for cutoff [...] Standards of Medical Care in Diabetes 2016, [place] Diabetes Association. Diabetes Care. 2016.39(Suppl 1). LAB 3094-0(LOINC) BUN SerPl-mCnc 29 High 9-24 mg/dL LAB 2160-0(LOINC) Creat SerPl-mCnc 7.96 High 0.73-1.22 mg/dL LAB 2951-2(LOINC) Sodium SerPl-sCnc 136 136-144 mmol/L LAB 2823-3(LOINC) Potassium SerPl-sCnc 4.3 3.7-5.1 mmol/L LAB 2075-0(LOINC) Chloride SerPl-sCnc 94 Low 98-107 mmol/L LAB 202-9(LOINC) CO2 SerPl-sCnc 25 22-30 mmol/L LAB 88635-6(LOINC) Anion Gap SerPl-sCnc 17 High 8-15 mmol/L LAB 70419-7(LOINC) eGFRcr SerPlBld CKD-EPI 2020 8 Low >=60 [...] accurately reflect actual GFR. Performed By: #### 30077-8 # ### [facility] CLIA [id number] [address] [place] [address] [place] CBC PNL BLD AUTO Collected: 5 12:37 PM Status: F Source: [facility] Order Comment: Specimen Type : BLOOD SPECIMEN Ordering Facility: [facility] Address: [address] [place] [address] TYPE CODE TESTS RESULT OUT OF RANGE REFERENCE UNITS LAB 6690-2([facility]) WBC # Bld Auto 9.99 3.70-11.00 k/uL LAB 789-8(LOINC) RBC # Bld Auto 2.90 Low 4.20-6.00 m/uL LAB 718-7(INC) Hgb Bld-mCnc 8.2 Low 13.0-17.0 g/dL LAB 4544-3([facility]) Hct VFr Bld Auto 26.4 Low 39.0-51.0 % LAB 787-2([facility]) MCV RBC Auto 91.0 80.0-100.0 fL LAB 785-6(INC) MCH RBC Qn Auto 28.3 26.0-34.0 pg LAB 786-4([facility]) MCHC RBC Auto-mCnc 31.1 30.5-36.0 g/dL LAB 21638-9([facility]) RDW RBC-Rto 19.6 High 11.5-15.0 % LAB 777-3(INC) Platelet # Bld Auto 323 150-400 k/uL LAB 49364-2([facility]) PMV Bld Auto 10.5 9.0-12.7 fL LAB 771-6([facility]) nRBC # Bld Auto <0.01 <0.01 k/uL Performed By: #### 98127-9 # ### [facility] CLIA [id number] [address] [place] [address] [place] PROGRESS Observed: 04/23/2025 9:43 AM Status: COMPLETED Source: [facility] HNO ID: [id number] Author: DALLIN KENT RPh Service: Pharmacy Author [...] any questions, please contact Clau Kent at [phone]. Age: [age] year old Allergies: ALLERGIES Allergen [...] Value 06/30/2023 2138 6.0 (L) Dallin Kent [facility] PT ED Observed: 04/22/2025 4:18 PM Status: COMPLETED Source: [facility] HNO ID: [id number] Author: SANA DOMINGUEZ RPh Service: Pharmacy Author [...] (RENVELA) 800 mg ORAL TID w MEALS aSna Dominguez RPh CASE MGT INMAX TORO Observed: 04/22/2025 3:49 PM Status: COMPLETED Source: [facility] HNO ID: [id number] Author: VICENTA TORRES LSW Service: Care Management Author Type: Water Supply Technician Type: Care Mgt Initial Assessment Filed: 04/22/2025 15:53 Note Text: CARE MANAGEMENT: ASSESSMENT AND DISCHARGE PLAN SERVICE DATE: April 22, 2025 SERVICE TIME: 3:49 PM PCP: No primary care provider on file. Primary Contact: Extended Emergency Contact Information Primary Emergency Contact: Irma Weston Address: [address] [place], [place] [id number] [place] [address] Mobile Relation: Spouse Secondary Emergency Contact: Pablo Weston Mobile Relation: Mother Admission Status: Inpatient Insurance Provider: [employer] HMO Discharge Planning requested by: Per Department Practice Potential Transition Plans Home Advance Directives Current Advance Directive: None Security Professional Attempted to Assist with AD Completion: Yes [...] General wellness, Be able to go home [place] Choice Explained: [place] of Choice Given: No Reason Not Given: [...] communicate needs. Pt reports he lives in [place] with spouse. He drove himself here and plans on driving himself home at dc. Pt is being treated for bleeding chronic wounds (chest). Dermatology following. Pt reports he uses a cane at baseline. No other DME used. Pt is active with outpatient hemodialysis: Date of first HD: 2005 -Current HD unit: [facility] -Loading Dock Hand: Dr Melendez -Schedule: Fri-Fri-Fri -Time: 4.5 hrs -Access: R IJ TDC Needs unclear. No wknd dc anticipated. No skilled needs identified at this time. CM following. Please see Treatment Team for Care Management Weekend/Holiday coverage. SIGNATURE: CANDY Flores PATIENT NAME: Elia Weston DATE: April 22, 2025 TIME: 3:49 PM CONSULT Observed: 04/22/2025 1:10 PM Status: COMPLETED Source: [facility] HNO ID: [id number] Author: KIMBERLY LYNN APRN.INDUSTRIAL TECHNOLOGIST Service: Wound Care Team Author Type: Nurse Practitioner Type: Consults Filed: 04/22/2025 13:51 Note Text: WOUND CARE SERVICE HORSE BREEDER CONSULT NOTE SERVICE DATE: 04/22/2025 SERVICE TIME: [...] (HCC) 2005 ESRD from HTN Dialysis M,W,F [facility] [phone] Essential hypertension, benign 1998 EKG 09/30 NL. 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[facility]) Wound of right side of back from friction/rubbing of jacket, goes to wound care center in [place] PAST SURGICAL HISTORY Procedure Laterality Date ARTERIOVENOUS FISTULA Left 08/29/2010 CAPSULE ENDOSCOPY 07/01/2023 CARDIOVERSION-ELECTIVE N/A 12/03/2018 200 joules synchronized - successful COLONOSCOPY 07/01/2023 EGD 06/27/2023 HERNIA REPAIR HX PAST SURGICAL HISTORY OF 08/29/2010 dialysis fistula left arm PAST SURGICAL HISTORY OF Right 03/2019 Right leg femoral vein to superficial femoral artery loop graft mid thigh REPAIR CLEFT LIP RMVL LEANN CVC W/O SUBQ PORT/BANQUET STEWARDESS 01/17/2013 SHX CARDIAC RADIOFREQUENCY ABLATION 08/21/2021 s/p [...] 04/22/2025 9:40 AM Wound Image Site Assessment Eschar;Brown;Sloughing;Yellow;Echeverria;Red;Lorton;Purple Skye-Wound Assessment Hyperpigmented;Scarred;Dry;Intact Shape Irregular- multiple areas documented as one Drainage Description Serosanguineous Drainage Amount Scant Odor None Skye-Wound Treatment Skin Prep Treatments Cleansed Dressing Xeroform;Abdominal Dressing Dressing Changed New Dressing Status Clean;Dry;Intact Wound 04/21/25 0400 Other (Comment) Chest Right (Active) Assessments 04/22/2025 10:08 AM Wound Image Site Assessment Eschar;Brown;Sloughing;Yellow;Red;Lorton Skye-Wound Assessment Hyperpigmented;Scarred;Dry;Intact Shape irregular Wound Length [...] 04/22/2025 10:15 AM Wound Image Site Assessment Eschar;Black;Sloughing;Yellow;Red;Lorton Skye-Wound Assessment Hyperpigmented;Scarred;Dry;Intact Shape irregular Wound Length [...] 04/22/2025 9:52 AM Wound Image Site Assessment Sloughing;Yellow;Echeverria;Red;Lorton Skye-Wound Assessment Hyperpigmented;Scarred;Intact Shape irregular Wound Length [...] Vashe and then pat dry. Apply Vashe ([place] # [id number]) saturated gauze and allow to sit on [...] off-load heels, while in bed. (oracle number [id number]) - Obtain Medline Comfort Gove Sheet (oracle number [id number]) and Turning wedge (oracle number [id number]) to off-load patient's coccyx/ischium every 2 hours. - Obtain Seating Cushion ([place] # [id number]) and use when patient is up to [...] regimen, Mobility, and Moisture Pressure Injury Prevention: Dental Coordinator on Consult, Head cushion/ positioner, Heel offloading, [...] Review under the Scanned Docs tab in Mediasmart. The purpose of the photo(s) is to [...] which included preparing to see the patient, [id number] patient care, completing clinical documentation, obtaining and/or reviewing separately obtained history, performing a medically appropriate examination, counseling and educating the patient/family/caregiver, ordering medications, tests, or procedures, and communicating with other HCPs (not separately reported). SIGNATURE: Kimberly Lynn APRN.CNP PATIENT NAME: Elia Weston DATE: April 22, 2025 TIME: 1:11 PM CONSULT Observed: 04/22/2025 12:56 PM Status: COMPLETED Source: [facility] ID: [id number] Author: NANCY PEDROZA MD Service: Dermatology Author [...] (HCC) 2005 ESRD from HTN Dialysis M,W,F [facility] [phone] Essential hypertension, benign 1998 EKG 09/30 NL. [...] jacket, goes to wound care center in [place] Social History Tobacco Use Smoking status: Never [...] proliferation, immunohistochemical staining is performed at the [facility] on block A1 with appropriate controls. [...] team Patient seen and discussed with attending price checker, Dr. Pedroza. Vi Jarrett MD Dermatology resident 04/22/2025 12:56 PM Please use consult pager [phone], Mon-Fri 8am-5pm. Please call electric truck crane operator for on-call resident/pager during all other [...] Observed: 04/22/2025 11:01 AM Status: COMPLETED Source: [facility] HNO ID: [id number] Author: ELIJAH TO RT(R) Service: Radiology Author [...] PATIENT PRESENTS WITH AN IMPLANTABLE OR ATTACHED INSTRUMENT MAKER AND REPAIRER: No ALLERGIES: Reviewed and unchanged CONTRAST ALLERGY: [...] PERIPHERAL IV DATA: Inpatient - refer to [facility] documentation RADIOLOGY DEPARTMENT: CT; Exam(s) Completed: Chest Abdomen Pelvis SIGNATURE: Elijah To RT(R) PATIENT NAME: Elia Weston DATE: April 22, 2025 TIME: 11:[address] ABD/PEL W IVCON Observed: 04/22/2025 11:01 AM Status: F Source: [facility] * * *Final Report* * * DATE OF EXAM: Apr 22 2025 11:01AM [facility] 0530 - CT [...] collaterals, similar to prior CTA from 10/17/2024. Market Relationship Manager: AZAM Transcribe Date/Time: Apr 22 2025 11:45A Dictated by : CARLY WRIGHT MD This examination was interpreted and the report reviewed and electronically signed by: JEFF JERRY MD on Apr 22 2025 12:54PM EST [id number] CT CHEST W IVCON Observed: 04/22/2025 11:01 AM Status: F Source: [facility] * * *Final Report* * * DATE OF EXAM: Apr 22 2025 11:01AM [facility] 0539 - CT [...] No follow-up recommended unless deemed clinically necessary. Market Relationship Manager: AZAM Transcribe Date/Time: Apr 22 2025 11:33A Dictated by : JAC AGUILERA MD This examination was interpreted and the report reviewed and electronically signed by: JAC AGUILERA MD on Max 25 2025 12:03PM EST [id number] CBC PNL BLD AUTO Collected: 10:44 AM Status: F Source: [facility] Order Comment: Specimen Type : BLOOD SPECIMEN Ordering Facility: [facility] Address: [address] [place] [address] TYPE CODE TESTS RESULT OUT OF RANGE REFERENCE UNITS LAB 6690-2([facility]) WBC # Bld Auto 10.90 3.70-11.00 k/uL LAB 789-8([facility]) RBC # Bld Auto 2.58 Low 4.20-6.00 m/uL LAB 718-7([facility]) Hgb Bld-mCnc 6.9 Low 13.0-17.0 g/dL LAB 4544-3([facility]) Hct VFr Bld Auto 23.6 Low 39.0-51.0 % LAB 787-2([facility]) MCV RBC Auto 91.5 80.0-100.0 fL LAB 785-6([facility]) MCH RBC Qn Auto 26.7 26.0-34.0 pg LAB 786-4([facility]) MCHC RBC Auto-mCnc 29.2 Low 30.5-36.0 g/dL LAB 63990-3([facility]) RDW RBC-Rto 20.9 High 11.5-15.0 % LAB 777-3([facility]) Platelet # Bld Auto 297 150-400 k/uL LAB 47044-7([facility]) PMV Bld Auto 10.4 9.0-12.7 fL LAB 771-6([facility]) nRBC # Bld Auto <0.01 <0.01 k/uL Performed By: #### 76463-6 # ### [facility] CLIA [id number] [address] [place] [address] [place] PROGRESS Observed: 04/22/2025 6:19 AM Status: COMPLETED Source: [facility] HNO ID: [id number] Author: KEV REYES MD Service: General Internal Medicine Author Type: Resident Type: Progress Notes Filed: 04/22/2025 15:04 Note Text: Attestation signed by Kev Reyes MD at 04/22/2025 3:04 PM (Updated) [facility] STAFF PHYSICIAN NOTE OF PERSONAL INVOLVEMENT IN [...] have increased pain and was admitted in [place] 02/16-02/18/2025, received Vancomycin and Zosyn. For the [...] placement with INR goal 2.5-3.5 # Poor intermediate card tender prognosis PLAN: Transfuse pRBC, Hb goal ~ [...] counseling and/or coordinating care for the patient. Nxsi-kk-usgd time was 50 minutes SIGNATURE: Kev Reyes MD DATE of SERVICE: April 22, 2025 TIME of SERVICE: 2:30 PM General Internal Medicine - Service Jeffrey Haq Progress Note From 7am to 5pm: Please page Parker Moe MD After hours 5pm to 7am: Please page on-call [phone] SERVICE DATE: 04/22/2025 SERVICE TIME: 6:19 AM [...] management of bleeding, and on transfer to [facility], patient began to have significant bleeding from [...] #Chronic Hypotension #Secondary Hyperparathyroidism - iHD at [facility] [place] through R. Tunneled HD catheter MWF - [...] SERPL Collected: 1:36 AM Status: F Source: [facility] Order Comment: Specimen Type : BLOOD SPECIMEN Ordering Facility: [facility] Address: [address] [place] [address] TYPE CODE TESTS RESULT OUT OF RANGE REFERENCE UNITS LAB 1751-7(LOINC) Albumin SerPl-mCnc 3.1 Low 3.9-4.9 g/dL LAB 47825-6(LOINC) Calcium SerPl-mCnc 9.4 8.5-10.2 mg/dL LAB 2777-1(LOINC) Phosphate SerPl-mCnc 4.5 2.7-4.8 mg/dL Result Comment: Result reche cked. LAB 2345-7(LOINC) Glucose SerPl-mCnc 96 74-99 mg/dL Result Comment: The [place] Diabetes Association (ADA) provides guidance for cutoff [...] Standards of Medical Care in Diabetes 2016, [place] Diabetes Association. Diabetes Care. 2016.39(Suppl 1). LAB 3094-0(LOINC) BUN SerPl-mCnc 17 9-24 mg/dL LAB 2160-0(LOINC) Creat SerPl-mCnc 5.68 High 0.73-1.22 mg/dL LAB 2951-2(LOINC) Sodium SerPl-sCnc 139 136-144 mmol/L LAB 2823-3(LOINC) Potassium SerPl-sCnc 4.5 3.7-5.1 mmol/L LAB 2075-0(LOINC) Chloride SerPl-sCnc 99 98-107 mmol/L LAB 2027-9(LOINC) CO2 SerPl-sCnc 25 22-30 mmol/L LAB 32958-0(LOINC) Anion Gap SerPl-sCnc 15 8-15 mmol/L LAB 62032-3(LOINC) eGFRcr SerPlBld CKD-EPI 2020 12 Low >=60 [...] accurately reflect actual GFR. Performed By: #### 43223-5 # ### [facility] CLIA [id number] [address] [place] [address] [place] PT PNL PPP Collected: 04/22/2025 1:35 AM Status: F Source: [facility] Order Comment: Specimen Type : BLOOD SPECIMEN Ordering Facility: [facility] Address: [address] [place] [address] TYPE CODE TESTS RESULT OUT OF RANGE REFERENCE UNITS LAB 5902-2(LOINC) Prothrombin time 38.6 High 9.7-13.0 sec LAB 6301-6(LOINC) INR PPP 3.9 High 0.9-1.3 Result Comment: Vitamin K An tagonist (VKA) Therapeutic Range: INR 2 to 3 (Target INR of 2.5) Note: For patients treated with VKA drugs, such as warfarin, the [place] [employer] 2012 Guideline recommends [...] Chest 2012, 141:7S-47S Kevin RUSHING et al. [facility] 2017, 70: 252-289 Performed By: #### 43077-3 # ### [facility] CLIA [id number] [address] [place] [address] [place] HBV SURFACE AB SER QL Collected: 2024 1:35 AM Status: F Source: [facility] Order Comment: Specimen Type : BLOOD SPECIMEN Ordering Facility: [facility] Address: [address] [place] [address] TYPE CODE TESTS RESULT OUT OF RANGE REFERENCE UNITS LAB 12960-1([facility]) HBV surface Ab Ser Ql Positive Result Comment: Consistent w ith serological evidence of immunity to Hepatitis B Virus. LAB 29190-6([facility]) HBV surface Ab Ser-aCnc 858.84 mIU/mL Result Comment: <8 mIU/mL: N o serological evidence of immunity to Hepatitis B Virus. >/= 8 to <12 mIU/mL: No serological evidence of immunity to Hepatitis B Virus. >/= 12 mIU/mL: Consistent with serological evidence of immunity to Hepatitis B Virus. Performed By: #### 5195-3, 2 2322-2 #### [facility] CLIA [id number] [address] HBV SURFACE AG SER QL Collected: 04/22/2025 1:35 AM Status: F Source: [facility] Order Comment: Specimen Type : BLOOD SPECIMEN Ordering Facility: [facility] Address: [address] [place] [address] TYPE CODE TESTS RESULT OUT OF RANGE REFERENCE UNITS LAB 5195-3([facility]) HBV surface Ag Ser Ql Negative Negative Performed By: #### 5195-3, 2 2322-2 #### [facility] CLIA [id number] [address] [place] [address] CBC PNL BLD AUTO Collected: 1:34 AM Status: F Source: [facility] Order Comment: Specimen Type : BLOOD SPECIMEN Ordering Facility: [facility] Address: [address] [place] [address] TYPE CODE TESTS RESULT OUT OF RANGE [...] RBC Auto-mCnc 30.4 Low 30.5-36.0 g/dL LAB 32565-2(LOINC) RDW RBC-Rto 20.6 High 11.5-15.0 % LAB 777-3(LOINC) Platelet # Bld Auto 307 150-400 k/uL LAB 71468-0(LOINC) PMV Bld Auto 10.2 9.0-12.7 fL LAB 771-6(LOINC) nRBC # Bld Auto <0.01 <0.01 k/uL Performed By: #### 83327-7 # ### [facility] CLIA [id number] [address] [place] [address] [place] [facility] Observed: 04/21/2025 11:10 PM Status: COMPLETED Source: [facility] HNO ID: [id number] Author: DAVID GUZMAN APRN.CNP Service: Critical Care [...] Anemia of chronic disorder Anuria Atrial fibrillation ([facility]) 12/02/2018 on Coumadin and Amiodarone BMI 40.0-44.9, adult ([facility]) ESRD (end stage renal disease) on dialysis ([facility]) 2005 ESRD from HTN Dialysis M,W,F [facility] [phone] Essential hypertension, benign 1998 EKG 09/30 NL. Hearing loss of both ears History of mitral valve stenosis Hx of bacterial endocarditis Hyperparathyroidism due to end stage renal disease on dialysis ([facility]) Kidney disease 2005 ESRD due to HTN; on IHD since 2005 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 and scoliosis h/o this 3 y. Dx by xray. Mechanical complication of arteriovenous fistula surgically created ([facility]) Mechanical complication of dialysis catheter ([facility]) Mitral valve disease Morbid obesity ([facility]) MS (mitral stenosis) 10/08/2018 Transesophageal US YEIMY on CPAP Paroxysmal atrial fibrillation (HCC) PE (pulmonary thromboembolism) (HCC) Pelvic mass Pseudoaneurysm of AV hemodialysis fistula (HCC) Wound of right side of back from friction/rubbing of jacket, goes to wound care center in [place] PAST SURGICAL HISTORY Procedure Laterality Date ARTERIOVENOUS FISTULA Left 08/29/2010 CAPSULE ENDOSCOPY 07/01/2023 CARDIOVERSION-ELECTIVE N/A 12/03/2018 200 joules synchronized - successful COLONOSCOPY 07/01/2023 EGD 06/27/2023 HERNIA REPAIR HX PAST SURGICAL HISTORY OF 08/29/2010 dialysis fistula left arm PAST SURGICAL HISTORY OF Right 03/2019 Right leg femoral vein to superficial femoral artery loop graft mid thigh REPAIR CLEFT LIP RMVL LEANN CVC W/O SUBQ PORT/BANQUET STEWARDESS 01/17/2013 SHX CARDIAC RADIOFREQUENCY ABLATION 08/21/2021 s/p [...] Observed: 04/21/2025 11:05 PM Status: COMPLETED Source: [facility] HNO ID: [id number] Author: LEE MORRISON MD Service: General Internal Medicine Author Type: Resident Type: Plan of Care Filed: 04/21/2025 23:38 Note Text: PLAN OF CARE SERVICE DATE: 04/21/2025 ADMISSION DATE: 04/20/2025 SERVICE TIME: 11:05 PM Post Acute Care/Discharge Plan: to be assessed Electrical And Radio Mechanic Participation in this Plan of Care: Resident: [...] Follow Plan of Care Goals/ Outcome: Health customer care voice consultant will provide every opportunity to inform the [...] April 21, 2025 TIME: 11:05 PM CSN: [id number] GAS + CO PNL BLDV Collected: 11:03 PM Status: F Source: [facility] Order Comment: Specimen Type : VENOUS BLOOD SPECIMEN Ordering Facility: [facility] Address: [address] [place] [address] TYPE CODE TESTS RESULT OUT OF RANGE REFERENCE UNITS LAB 2746-6(LOINC) pH BldV 7.41 7.32-7.42 LAB 202-4(LOINC) pCO2 BldV 45 42-55 mmHg LAB 2705-2(LOINC) pO2 BldV 88 High 35-45 mmHg LAB 2711-0(LOINC) SaO2 % BldV 97 High 60-85 % LAB 1927-3(LOINC) Base excess BldV Calc-sCnc 4 High 0-2 mmol/L LAB 07518-5(LOINC) HCO3 BldV-sCnc 28 24-28 mmol/L LAB 2716-9(INC) OxyHgb MFr BldV 93 High 60-85 % LAB 2032-1(INC) COHgb MFr BldV 1.9 0.0-2.0 % Result Comment: Carboxyhemog lobin Reference Range for Smokers: 2.0-8.0% LAB 2614-6(LOINC) MetHgb MFr Bld 1.4 0.0-1.5 % LAB 2947-0(LOINC) Sodium Bld-sCnc 142 136-144 mmol/L LAB 6298-4(INC) Potassium Bld-sCnc 4.2 3.5-5.0 mmol/L LAB 95502-5(INC) Ca-I Bld-mCnc 1.03 Low 1.08-1.30 m mol/L LAB 24636-5([facility]) Ca-I adj pH7.4 BldA-sCnc 1.04 Low 1.08-1.30 mmol/L LAB 2339-0(INC) Glucose Bld-mCnc 89 60-105 mg/dL LAB 13780-9(INC) Lactate Bld-sCnc 2.4 High 0.5-2.2 mmol/L LAB 718-7(LOINC) Hgb Bld-mCnc 7.9 Low 13.0-17.0 g/dL LAB 4544-3(LOINC) Hct VFr Bld Auto 24.7 Low 39.0-51.0 % LAB VTMP TEMPERATURE, BODY 37.0 C LAB VO2TH O2 THERAPY NC = Nasal Cannula Performed By: #### 63730-2 # ### [facility] CLIA [id number] [address] [place] [address] ECG01 Observed: 04/21/2025 10:14 PM Status: F Source: [facility] Ventricular Rate : 101 BPM QRS Duration : 72 ms Q-T Interval : 378 ms QTC Calculation(Bazett) : 490 ms Calculated R [place] : 141 degrees Calculated T [place] : 70 degrees UNDETERMINED RHYTHM RIGHT AXIS DEVIATION LOW VOLTAGE QRS QTcB >= 480 msec ABNORMAL ECG Confirmed by MD RUANO HEBA ([id number]) on 06/19/2025 3:49:17 PM NAME : ELIA WESTON PID : [id number] : 1980 Gender : Male Race : ORD : Procedure Date : Apr 21 2025 22:14:20 Edit Date : Jun 19 2025 15:49:21 Diagnosis: UNDETERMINED RHYTHM RIGHT AXIS DEVIATION LOW VOLTAGE QRS QTcB >= 480 msec ABNORMAL ECG Confirmed by MD RUANO HEBA ([id number]) on 06/19/2025 3:49:17 PM Test Reason : AMET Location : 97 : [place] [address] Overread By : MD RUANO HEBA Edited By : MD RUANO HEBA Referred By : , Acquired by : NANCY MARIE XR CHEST 1V FRONTAL PORT Observed: 04/21 5:48 PM Status: F Source: [facility] * * *Final Report* * * DATE [...] curvature of the spine. IMPRESSION: See result. Market Relationship Manager: PSCB Transcribe Date/Time: Apr 22 2025 12:46A Dictated by : WENDY CERDA MD This examination was interpreted and the report reviewed and electronically signed by: WENDY CERDA MD on Apr 22 2025 12:48AM EST [id number] BUN P DIALYSIS SERPL-MCNC Collected: 04/21/2025 3:34 PM Status: F Source: [facility] Order Comment: Specimen Type : BLOOD SPECIMEN Ordering Facility: [facility] Address: [address] [place] [address] TYPE CODE TESTS RESULT OUT OF RANGE REFERENCE UNITS LAB 18090-4(LOINC) BUN p dialysis SerPl-mCnc 12 9-24 mg/dL LAB BUNRAT UREA REDUCTION RATIO WITH BUNPR 78 % Performed By: #### 17332-1 # ### [facility] CLIA [id number] [address] [place] [address] [place] CONSULT PROG Observed: 04/21/2025 1:09 PM Status: COMPLETED Source: [facility] HNO ID: [id number] Author: NAYELY GARCIA RPh Service: Pharmacy Author [...] questions, please contact Justine Garcia PharmD at [phone]. Age: [age] year old Allergies: ALLERGIES Allergen [...] Observed: 04/21/2025 12:58 PM Status: COMPLETED Source: [facility] ID: [id number] Author: LELA SOLIMAN APRN.INDUSTRIAL TECHNOLOGIST Service: Nephrology Author Type: Nurse Practitioner Type: Consults Filed: 04/21/2025 13:56 Note Text: Department of [facility] [place] CONSULT: NEPHROLOGY Q6 SERVICE SERVICE DATE: 04/21/2025 [...] 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, PR, PE, CVA, hypotension on Midodrine, CHB, colitis, [...] ESRD (end stage renal disease) on dialysis ([facility]) 2005 ESRD from HTN Dialysis M,W,F [facility] [phone] Essential hypertension, benign 1998 EKG 09/30 NL. [...] jacket, goes to wound care center in [place] PAST SURGICAL HISTORY: PAST SURGICAL HISTORY Procedure 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 01/17/2013 SHX CARDIAC RADIOFREQUENCY ABLATION 08/21/2021 s/p [...] dry, Rt chest wound with Kerlex and bernrado wrap dressing HEENT: Normocephalic, Atraumatic LUNGS: Normal [...] 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, PR, PE, CVA, hypotension on Midodrine, CHB, colitis, [...] of first HD: 2005 -Current HD unit: [facility] -Loading Dock Hand: Dr Melendez -Schedule: Fri-Fri-Fri -Time: 4.5 hrs -EDW: 114 kg -Date of last outpatient dialysis: 04/18/25 -Access: R IJ TDC 2.Electrolytes/acid-base: -Potassium >> stable >> controlled with TECHNICAL SALES ASSOCIATE 3K bath -Sodium stable -Metabolic acidosis modulated with TECHNICAL SALES ASSOCIATE 3.Blood Pressure/Volume Status: -BP intermittently hypotensive SBP [...] 10 ml/min Outpatient dialysis disposition plan: contact [phone] and ask to speak with the help desk consultant as needed for assistance with post-discharge arrangements. Please DO NOT schedule patient for a nephrology follow up appointment. Kidney care will be provided by the primary member of technical staff at their dialysis unit upon hospital discharge. SIGNATURE: Lela Soliman APRN.CNP PATIENT NAME: Elia Weston DATE: April 21, 2025 TIME: 12:58 PM FOR AFTER HOUR CONCERNS BETWEEN 5PM - 7AM CONTACT ON-CALL NEPHROLOGY FELLOW Disclosures: Parts of the current progress note may have been copied from a previous note. GAS + CO PNL BLDV Collected: 5 11:53 AM Status: F Source: [facility] Order Comment: Specimen Type : VENOUS BLOOD SPECIMEN Ordering Facility: [facility] Address: [address] [place] [address] TYPE CODE TESTS RESULT OUT OF RANGE REFERENCE UNITS LAB 2746-6(LOINC) pH BldV 7.34 7.32-7.42 LAB 50753-0(LOINC) pH temp adj BldV 7.35 7.32-7.42 LAB 2020-4(LOINC) pCO2 BldV 48 42-55 mmHg LAB 73834-4(LOINC) pCO2 temp adj BldV 46 42-55 mmHg LAB 2705-2(LOINC) pO2 BldV 41 35-45 mmHg LAB 80710-0(LOINC) pO2 temp adj BldV 38 35-45 mmHg LAB 2711-0(LOINC) SaO2 % BldV 62 60-85 % LAB BDVEN BASE DEFICIT, VENOUS >-1 -2-0 mmol/L LAB 03682-4(LOINC) HCO3 BldV-sCnc 25 24-28 mmol/L LAB 2716-9([facility]) OxyHgb MFr BldV 60 60-85 % LAB 2032-1(INC) COHgb MFr BldV 1.6 0.0-2.0 % Result Comment: Carboxyhemog lobin Reference Range for Smokers: 2.0-8.0% LAB 2614-6([facility]) MetHgb MFr Bld 1.5 0.0-1.5 % LAB 2947-0([facility]) Sodium Bld-sCnc 142 136-144 mmol/L LAB 6298-4([facility]) Potassium Bld-sCnc 3.7 3.5-5.0 mmol/L LAB 36968-8([facility]) Ca-I Bld-mCnc 1.12 1.08-1.30 m mol/L LAB 79165-1([facility]) Ca-I adj pH7.4 BldA-sCnc 1.08 1.08-1.30 mmol/L LAB 2339-0([facility]) Glucose Bld-mCnc 80 60-105 mg/dL LAB 60283-3([facility]) Lactate Bld-sCnc 1.7 0.5-2.2 mmol/L LAB 718-7([facility]) Hgb Bld-mCnc 7.6 Low 13.0-17.0 g/dL LAB 4544-3(INC) Hct VFr Bld Auto 23.7 Low 39.0-51.0 % LAB VTMP TEMPERATURE, BODY 36.0 C LAB VO2TH O2 THERAPY RA=Room Air Performed By: #### 73919-6 # ### [facility] CLIA [id number] [address] [place] [address] [place] BUN PRE DIAL SERPL-MCNC Collected: 03/30 11:08 AM Status: F Source: [facility] Order Comment: Specimen Type : BLOOD SPECIMEN Ordering Facility: [facility] Address: [address] [place] [address] TYPE CODE TESTS RESULT OUT OF RANGE REFERENCE UNITS LAB 03133-9([facility]) BUN pre dial SerPl-mCnc 54 High 9-24 mg/dL Performed By: #### 05691-9, 2777-1, 87361-3, 47385-4 #### [facility] CLIA [id number] [address] [place] [address] [place] [id number] [facility] [place] COMP METAB 2000 PNL SERPL Collected: 11:08 AM Status: F Source: [facility] Order Comment: Specimen Type : BLOOD SPECIMEN Ordering Facility: [facility] Address: [address] [place] [address] TYPE CODE TESTS RESULT OUT OF RANGE REFERENCE UNITS LAB 2885-2(LOINC) Prot SerPl-mCnc 7.7 6.3-8.0 g/dL LAB 1751-7(LOINC) Albumin SerPl-mCnc 3.1 Low 3.9-4.9 g/dL LAB 00839-7(LOINC) Calcium SerPl-mCnc 9.4 8.5-10.2 mg/dL LAB 1975-2(LOINC) Bilirub SerPl-mCnc 0.4 0.2-1.3 mg/dL LAB 6768-6(LOINC) ALP SerPl-cCnc 151 High 38-113 U/L LAB 1920-8(LOINC) AST SerPl-cCnc 16 14-40 U/L LAB 1742-6(LOINC) ALT SerPl-cCnc 9 Low 10-54 U/L LAB 2345-7(LOINC) Glucose SerPl-mCnc 85 74-99 mg/dL Result Comment: The [place] Diabetes Association (ADA) provides guidance for cutoff [...] Standards of Medical Care in Diabetes 2016, [place] Diabetes Association. Diabetes Care. 2016.39(Suppl 1). LAB 3094-0(LOINC) BUN SerPl-mCnc 54 High 9-24 mg/dL LAB 2160-0(LOINC) Creat SerPl-mCnc 12.66 High 0.73-1.22 mg/dL LAB 2951-2(LOINC) Sodium SerPl-sCnc 137 136-144 mmol/L LAB 2823-3(LOINC) Potassium SerPl-sCnc 4.4 3.7-5.1 mmol/L LAB 2075-0(LOINC) Chloride SerPl-sCnc 95 Low 98-107 mmol/L LAB 2028-9(LOINC) CO2 SerPl-sCnc 18 Low 22-30 mmol/L LAB 74187-3(LOINC) Anion Gap SerPl-sCnc 24 High 8-15 mmol/L LAB 63341-8(LOINC) eGFRcr SerPlBld CKD-EPI 2020 5 Low >=60 [...] accurately reflect actual GFR. Performed By: #### 31293-8, 2777-1, 99232-3, 88350-2 #### [facility] CLIA [id number] [address] [place] [address] [place] MAGNESIUM SERPL-MCNC Collected: 025 11:08 AM Status: F Source: [facility] Order Comment: Specimen Type : BLOOD SPECIMEN Ordering Facility: [facility] Address: [address] [place] [address] TYPE CODE TESTS RESULT OUT OF RANGE REFERENCE UNITS LAB 03502-9(LOINC) Magnesium SerPl-mCnc 2.3 1.7-2.3 mg/dL Performed By: #### 81878-5, 2777-1, 06702-2, 31754-9 #### [facility] CLIA [id number] [address] [place] [address] [facility] PHOSPHATE SERPL-MCNC Collected: 025 11:08 AM Status: F Source: [facility] Order Comment: Specimen Type : BLOOD SPECIMEN Ordering Facility: [facility] Address: [address] [place] [address] TYPE CODE TESTS RESULT OUT OF RANGE REFERENCE UNITS LAB 2777-1(LOINC) Phosphate SerPl-mCnc 10.5 High 2.7-4.8 mg/dL Performed By: #### 21320-4, 2777-1, 33440-2, 16836-2 #### [facility] CLIA [id number] [address] [place], [place] [address] [place] PT PNL PPP Collected: 5 11:08 AM Status: F Source: [facility] Order Comment: Specimen Type : BLOOD SPECIMEN Ordering Facility: [facility] Address: [address] [place] [address] TYPE CODE TESTS RESULT OUT OF RANGE REFERENCE UNITS LAB 5902-2(LOINC) Prothrombin time 49.1 High 9.7-13.0 sec LAB 6301-6(LOINC) INR PPP 5.1 High 0.9-1.3 Result Comment: Vitamin K An tagonist (VKA) Therapeutic Range: INR 2 to 3 (Target INR of 2.5) Note: For patients treated with VKA drugs, such as warfarin, the [place] College [employer]icians 2012 Guideline recommends [...] Chest 2012, 141:7S-47S Kevin RUSHING et al. [facility] 2017, 70: 252-289 Result rechecked. Sample checked for clot. Performed By: #### 28427-6, 82129-5 #### [facility] CLIA [id number] [address] [place] [address] [place] APTT PPP Collected: 5 11:08 AM Status: F Source: [facility] Order Comment: Specimen Type : BLOOD SPECIMEN Ordering Facility: [facility] Address: [address] [place] [address] TYPE CODE TESTS RESULT OUT OF RANGE REFERENCE UNITS LAB 58776-2([facility]) aPTT PPP 62.7 High 23.0-32.4 sec Performed By: #### 23048-0, 78219-3 #### [facility] CLIA [id number] [address] [place] [address] [place] CBC PNL BLD AUTO Collected: 5 11:08 AM Status: F Source: [facility] Order Comment: Specimen Type : BLOOD SPECIMEN Ordering Facility: [facility] Address: [address] [place] [address] TYPE CODE TESTS RESULT OUT OF RANGE [...] RBC Auto-mCnc 29.2 Low 30.5-36.0 g/dL LAB 12494-6(LOINC) RDW RBC-Rto 20.3 High 11.5-15.0 % LAB 777-3(LOINC) Platelet # Bld Auto 355 150-400 k/uL LAB 62374-8(INC) PMV Bld Auto 10.5 9.0-12.7 fL LAB 771-6(LOINC) nRBC # Bld Auto <0.01 <0.01 k/uL Performed By: #### 58949-2 # ### [facility] CLIA [id number] [address] [place] [address] [place] GAS + CO PNL BLDV Collected: 5 5:57 AM Status: F Source: [facility] Order Comment: Specimen Type : VENOUS BLOOD SPECIMEN Ordering Facility: [facility] Address: [address] [place] [address] TYPE CODE TESTS RESULT OUT OF RANGE REFERENCE UNITS LAB 2746-6(LOINC) pH BldV 7.25 Low 7.32-7.42 LAB 2020-4(LOINC) pCO2 BldV 45 42-55 mmHg LAB 2705-2(LOINC) pO2 BldV 54 High 35-45 mmHg LAB 2711-0(LOINC) SaO2 % BldV 77 60-85 % LAB BDVEN BASE DEFICIT, VENOUS -7 Low -2-0 mmol/L LAB 41228-2(LOINC) HCO3 BldV-sCnc 19 Low 24-28 mmol/L LAB 2716-9(LOINC) OxyHgb MFr BldV 75 60-85 % LAB 2032-1(LOINC) COHgb MFr BldV 1.8 0.0-2.0 % Result Comment: Carboxyhemog lobin Reference Range for Smokers: 2.0-8.0% LAB 2614-6(LOINC) MetHgb MFr Bld 1.0 0.0-1.5 % LAB 2947-0(LOINC) Sodium Bld-sCnc 138 136-144 mmol/L LAB 6298-4([facility]) Potassium Bld-sCnc 4.5 3.5-5.0 mmol/L LAB 67422-6([facility]) Ca-I Bld-mCnc 1.13 1.08-1.30 m mol/L LAB 23634-4([facility]) Ca-I adj pH7.4 BldA-sCnc 1.04 Low 1.08-1.30 mmol/L LAB 2339-0([facility]) Glucose Bld-mCnc 103 60-105 mg/dL LAB 96637-8([facility]) Lactate Bld-sCnc 3.2 High 0.5-2.2 mmol/L LAB 718-7([facility]) Hgb Bld-mCnc 8.5 Low 13.0-17.0 g/dL LAB 4544-3([facility]) Hct VFr Bld Auto 26.3 Low 39.0-51.0 % LAB VTMP TEMPERATURE, BODY 37.0 C LAB VO2TH O2 THERAPY RA=Room Air Performed By: #### 61616-9 # ### [facility] CLIA [id number] [address] [place] [address] OF [facility] PLAN OF CARE Observed: 04/21/2025 5:50 AM Status: COMPLETED Source: [facility] HNO ID: [id number] Author: BRAD DAMON MD Service: General Internal [...] Currently awaiting repeat VBG. Vitals remain stable. Bard Damon MD PGY3 Internal Medicine Pager [phone] ECG COMPLETE Observed: 04/21/2025 5:01 AM Status: F Source: [facility] Ventricular Rate : 115 BPM QRS Duration : 64 ms Q-T Interval : 336 ms QTC Calculation(Bazett) : 464 ms Calculated R [place] : 39 degrees Calculated T [place] : 175 degrees BASELINE ARTIFACT UNDETERMINED RHYTHM LOW VOLTAGE QRS, CONSIDER PULMONARY DISEASE, PERICARDIAL EFFUSION, OR NORMAL VARIANT ANTEROLATERAL INFARCTION , AGE UNDETERMINED INFERIOR T WAVE ABNORMALITY ABNORMAL ECG Confirmed by BROOK DELACRUZ MD ([id number]) on 06/10/2025 11:13:23 AM NAME : ELIA WESTON PID : [id number] : 1980 Gender : Male Race : ORD : [id number] Procedure Date : Apr 21 2025 05:01:55 Edit Date : Jun 10 2025 11:13:28 Diagnosis: BASELINE ARTIFACT UNDETERMINED RHYTHM LOW VOLTAGE QRS, CONSIDER PULMONARY DISEASE, PERICARDIAL EFFUSION, OR NORMAL VARIANT ANTEROLATERAL INFARCTION , AGE UNDETERMINED INFERIOR T WAVE ABNORMALITY ABNORMAL ECG Confirmed by BROOK DELACRUZ MD ([id number]) on 06/10/2025 11:13:23 AM Test Reason : no rev. ch to 20hz bst pos. Location : : [place] [address] Overread By : BROOK DELACRUZ MD Edited By : BROOK DELACRUZ MD Referred By : , Acquired by : FEMI BAUER [facility] Observed: 04/21/2025 3:44 AM Status: COMPLETED Source: [facility] HNO ID: [id number] Author: DAYAN CARRINGTON APRN.CNP Service: Critical Care [...] BLDV Collected: 3:41 AM Status: F Source: [facility] Order Comment: Specimen Type : VENOUS BLOOD SPECIMEN Ordering Facility: [facility] Address: [address] [place] [address] TYPE CODE TESTS RESULT OUT OF RANGE REFERENCE UNITS LAB 2746-6(LOINC) pH BldV 7.27 Low 7.32-7.42 LAB 2020-4(LOINC) pCO2 BldV 44 42-55 mmHg LAB 2705-2(LOINC) pO2 BldV 49 High 35-45 mmHg LAB 2711-0(LOINC) SaO2 % BldV 72 60-85 % LAB BDVEN BASE DEFICIT, VENOUS -7 Low -2-0 mmol/L LAB 57354-0(LOINC) HCO3 BldV-sCnc 19 Low 24-28 mmol/L LAB 2716-9(LOINC) OxyHgb MFr BldV 70 60-85 % LAB 2032-1(LOINC) COHgb MFr BldV 1.9 0.0-2.0 % Result Comment: Carboxyhemog lobin Reference Range for Smokers: 2.0-8.0% LAB 2614-6(LOINC) MetHgb MFr Bld 1.0 0.0-1.5 % LAB 2947-0(LOINC) Sodium Bld-sCnc 137 136-144 mmol/L LAB 6298-4(LOINC) Potassium Bld-sCnc 4.2 3.5-5.0 mmol/L LAB 34915-8(LOINC) Ca-I Bld-mCnc 1.04 Low 1.08-1.30 m mol/L LAB 33065-8(LOINC) Ca-I adj pH7.4 BldA-sCnc 0.96 Low 1.08-1.30 mmol/L LAB 2339-0(LOINC) Glucose Bld-mCnc 108 High 60-105 mg/dL LAB 98658-6(LOINC) Lactate Bld-sCnc 3.1 High 0.5-2.2 mmol/L LAB 718-7(LOINC) Hgb Bld-mCnc 8.6 Low 13.0-17.0 g/dL LAB 4544-3(LOINC) Hct VFr Bld Auto 26.8 Low 39.0-51.0 % LAB VTMP TEMPERATURE, BODY 37.0 C LAB VO2TH O2 THERAPY RA=Room Air Performed By: #### 68359-5 # ### [facility] CLIA [id number] [address] [place] [address] [place] COMP METAB 2000 PNL SERPL Collected: 3:41 AM Status: F Source: [facility] Order Comment: Specimen Type : BLOOD SPECIMEN Ordering Facility: [facility] Address: [address] [place] [address] TYPE CODE TESTS RESULT OUT OF RANGE REFERENCE UNITS LAB 2885-2(LOINC) Prot SerPl-mCnc 8.6 High 6.3-8.0 g/dL LAB 1751-7(LOINC) Albumin SerPl-mCnc 3.3 Low 3.9-4.9 g/dL LAB 16880-7(LOINC) Calcium SerPl-mCnc 9.8 8.5-10.2 mg/dL LAB 1975-2(LOINC) Bilirub SerPl-mCnc 0.4 0.2-1.3 mg/dL LAB 6768-6(LOINC) ALP SerPl-cCnc 167 High 38-113 U/L LAB 1920-8(LOINC) AST SerPl-cCnc 22 14-40 U/L Result Comment: Results may be falsely increased due to interference from hemolysis. Suggest reorder as clinically indicated. LAB 1742-6(LOINC) ALT SerPl-cCnc 10 10-54 U/L LAB 2345-7(LOINC) Glucose SerPl-mCnc 92 74-99 mg/dL Result Comment: The [place] [employer] (ADA) provides guidance for cutoff [...] Standards of Medical Care in Diabetes 2016, [place] [employer]. Diabetes Care. 2016.39(Suppl 1). LAB 3094-0(LOINC) BUN SerPl-mCnc 52 High 9-24 mg/dL LAB 2160-0(LOINC) Creat SerPl-mCnc 12.27 High 0.73-1.22 mg/dL LAB 2951-2(LOINC) Sodium SerPl-sCnc 135 Low 136-144 mmol/L LAB 2823-3(LOINC) Potassium SerPl-sCnc 4.5 3.7-5.1 mmol/L LAB 2075-0(LOINC) Chloride SerPl-sCnc 95 Low 98-107 mmol/L LAB 2027-9(LOINC) CO2 SerPl-sCnc 15 Low 22-30 mmol/L LAB 41771-4(LOINC) Anion Gap SerPl-sCnc 25 High 8-15 mmol/L LAB 77056-9(LOINC) eGFRcr SerPlBld CKD-EPI 2020 5 Low >=60 [...] accurately reflect actual GFR. Performed By: #### 54543-6, 2777-1, 01739-3 #### [facility] CLIA [id number] [address] [place] [address] [place] MAGNESIUM SERPL-MCNC Collected: 04/21/2025 3:41 AM S tatus: F Source: [facility] Order Comment: Specimen Type : BLOOD SPECIMEN Ordering Facility: [facility] Address: [address] [place], [place] [id number] TYPE CODE TESTS RESULT OUT OF RANGE REFERENCE UNITS LAB 02478-6(LOINC) Magnesium SerPl-mCnc 2.5 High 1.7-2.3 mg/dL Performed By: #### 00928-7, 2777-1, 35169-1 #### [facility] CLIA [id number] [address] [place], [place] [id number] [place] PHOSPHATE SERPL-MCNC Collected: 04/21/2025 3:41 AM S tatus: F Source: [facility] Order Comment: Specimen Type : BLOOD SPECIMEN Ordering Facility: [facility] Address: [address] [place] [address] TYPE CODE TESTS RESULT OUT OF RANGE REFERENCE UNITS LAB 2777-1(LOINC) Phosphate SerPl-mCnc 9.7 High 2.7-4.8 mg/dL Performed By: #### 87351-5, 2777-1, 81522-4 #### [facility] CLIA [id number] [address] [place], [place] [id number] [place] PT PNL PPP Collected: 04/21/2025 3:41 AM Status: F Source: [facility] Order Comment: Specimen Type : BLOOD SPECIMEN Ordering Facility: [facility] Address: [address] [place] [address] TYPE CODE TESTS RESULT OUT OF RANGE REFERENCE UNITS LAB 5902-2(LOINC) Prothrombin time 42.0 High 9.7-13.0 sec LAB 6301-6(LOINC) INR PPP 4.3 High 0.9-1.3 Result Comment: Vitamin K An tagonist (VKA) Therapeutic Range: INR 2 to 3 (Target INR of 2.5) Note: For patients treated with VKA drugs, such as warfarin, the [employer]icians 2012 Guideline recommends [...] Chest 2012, 141:7S-47S Kevin RUSHING et al. [facility] 2017, 70: 252-289 Performed By: #### 10320-6 # ### [facility] CLIA [id number] [address] [place] [address] [place] CBC PNL BLD AUTO Collected: 5 3:41 AM Status: F Source: [facility] Order Comment: Specimen Type : BLOOD SPECIMEN Ordering Facility: [facility] Address: [address] [place] [address] TYPE CODE TESTS RESULT OUT OF RANGE [...] RBC Auto-mCnc 30.3 Low 30.5-36.0 g/dL LAB 40970-6(LOINC) RDW RBC-Rto 20.2 High 11.5-15.0 % LAB 777-3(LOINC) Platelet # Bld Auto 416 High 150-400 k/uL LAB 04873-8(LOINC) PMV Bld Auto 10.8 9.0-12.7 fL LAB 771-6(LOINC) nRBC # Bld Auto <0.01 <0.01 k/uL Performed By: #### 00986-0 # ### [facility] CLIA [id number] [address] [place] [address] STATES OF [facility] NURSING PROG Observed: 04/21/2025 3:00 AM Status: COMPLETED Source: [facility] HNO ID: [id number] Author: KRYSTAL BRODERICK RN Service: ? Author [...] LEANN Almazan as witness. $1,202 dollars in new zealander carin were accounted for, pt verfied amount. Crain is saturated in blood due to bleeding episode. Money was placed in Bio bag awaiting security to come excelsior picker. team leader Vy made aware. 0420: Pt refused to have pictues taken of full wounds. Visible wounds photos taken. team leader Vy in the room to assit and [...] arouse but continously nodding off throughout questions. team leader Mary made aware 0645: MD Paez aware [...] Observed: 04/21/2025 2:23 AM Status: COMPLETED Source: [facility] HNO ID: [id number] Author: CECILIO PICKETT RN Service: Emergency Medicine Author Type: Registered Nurse Type: ED Notes Filed: 04/21/2025 02:23 Note Text: Inpatient providers at bedside. ED NOTE Observed: 04/21/2025 2:13 AM Status: COMPLETED Source: [facility] HNO ID: [id number] Author: CECILIO PICKETT RN Service: Emergency Medicine [...] Observed: 04/21/2025 1:45 AM Status: COMPLETED Source: [facility] HNO ID: [id number] Author: CECILIO PICKETT RN Service: Emergency Medicine Author Type: Registered Nurse Type: ED Notes Filed: 04/21/2025 01:45 Note Text: Back wounds redressed by this RN by pts request. Xeroform placed on wounds and then abd pads and tape placed over the xeroform. HISTORY PHYSICAL Observed: 04/21/2025 1:25 AM Status: COMPLETED Source: [facility] HNO ID: [id number] Author: KEV REYES MD Service: General Internal Medicine Author Type: Resident Type: H&P Filed: 04/21/2025 20:05 Note Text: Attestation signed by Kev Reyes MD at 04/21/2025 8:05 PM (Updated) [facility] STAFF PHYSICIAN NOTE OF PERSONAL INVOLVEMENT IN [...] have increased pain and was admitted in [place] 02/16-02/18/2025, received Vancomycin and Zosyn. For the [...] placement with INR goal 2.5-3.5 # Poor longterm prognosis PLAN: Repeat INR and post transfusion [...] counseling and/or coordinating care for the patient. Tndo-ec-zuza time was 75 minutes SIGNATURE: Kev Reyes MD DATE of SERVICE: April 21, 2025 TIME of SERVICE: 2:08 PM Internal Medicine HANDP Date of Service: April 21, 2025 Patient: Elia Weston Medical Record: [id number] HISTORY OF PRESENT ILLNESS History is very limited due to poor patient participation/ waxing and waning mental status Per Chart Review: CC: Left chest wall wound bleeding Elia Weston is a 45 year old male with a PMH significant for: - ESRD on HD MWF at [facility] through R. Tunneled HD catheter s/p multiple [...] 20mg PO TID - Recent Hospital admission ([place] 02/[place]/20[place] - ) for R. Chest wall [...] prior to presentation. He was hospitalized in [facility] (10/12/2024 - 11/22/2024) and had skin [...] ESRD (end stage renal disease) on dialysis ([facility]) 2005 ESRD from HTN Dialysis M,W,F [facility] [phone] Essential hypertension, benign 1998 EKG 09/30 NL. Hearing loss of both ears History of mitral valve stenosis Hx of bacterial endocarditis Hyperparathyroidism due to end stage renal disease on dialysis ([facility]) Kidney disease 2005 ESRD due to HTN; on IHD since 2005 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 and scoliosis h/o this 3 y. Dx by xray. Mechanical complication of arteriovenous fistula surgically created ([facility]) Mechanical complication of dialysis catheter ([facility]) Mitral valve disease Morbid obesity ([facility]) MS (mitral stenosis) 10/08/2018 Transesophageal US YEIMY on CPAP Paroxysmal atrial fibrillation ([facility]) PE (pulmonary thromboembolism) ([facility]) Pelvic mass Pseudoaneurysm of AV hemodialysis fistula ([facility]) Wound of right side of back from friction/rubbing of jacket, goes to wound care center in [place] PAST SURGICAL HISTORY PAST SURGICAL HISTORY Procedure 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 01/17/2013 [facility]X CARDIAC RADIOFREQUENCY ABLATION 08/21/2021 s/p [...] TDC #HTN #Secondary Hyperparathyroidism - iHD at [facility] through R. Tunneled HD catheter MWF [...] 04/06 to 04/07. He was admitted to [facility] 10/12 to 11/22/24, skin biopsy showed [...] Brad Damon MD PGY3 Internal Medicine Pager [phone] SEPSIS LACTATE W/ REFLEX (INITIAL) Collected: 04/20/2025 11:47 PM Status: F Source: [facility] Order Comment: Specimen Type : BLOOD SPECIMEN Ordering Facility: [facility] Address: [address] [place] [address] TYPE CODE TESTS RESULT OUT OF RANGE REFERENCE UNITS LAB 32144-3(LOINC) Lactate Bld-sCnc 2.7 High <=2.0 mmol/L Performed By: #### SLACTR ## ## [facility] CLIA [id number] [address] [place] [address] BACTERIA BLD CULT Observed: 04/20/2025 11:47 PM Status: F Source: [facility] CULTURE, BLOOD: No growth 5 days Performed By: #### 600-7 ### # [facility] CLIA [id number] [address] [place] [address] BACTERIA BLD CULT Observed: 04/20/2025 11:47 PM Status: F Source: [facility] CULTURE, BLOOD: No growth 5 days Performed By: #### 600-7 ### # [facility] CLIA [id number] [address] [place] [address] ED NOTE Observed: 04/20/2025 10:25 PM Status: COMPLETED Source: [facility] HNO ID: [id number] Author: CECILIO PICKETT RN Service: Emergency Medicine Author Type: Registered Nurse Type: ED Notes Filed: 04/20/2025 22:26 Note Text: Pt back from bathroom, declining blood cultures to be drawn now until his wound dressings are changed, still a delay in care ED NOTE Observed: 04/20/2025 10:21 PM Status: COMPLETED Source: [facility] HNO ID: [id number] Author: CECILIO PICKETT RN Service: Emergency Medicine Author Type: Registered Nurse Type: ED Notes Filed: 04/20/2025 22:21 Note Text: Pt still in bathroom, denies needs ED NOTE Observed: 04/20/2025 9:47 PM Status: COMPLETED Source: [facility] HNO ID: [id number] Author: CECILIO PICKETT RN Service: Emergency Medicine Author Type: Registered Nurse Type: ED Notes Filed: 04/20/2025 21:48 Note Text: Checked on pt in the bathroom and pt is still having a bowel movement. Pt denies needs at this time. Care is still delayed at this point and providers are aware. ED NOTE Observed: 04/20/2025 8:58 PM Status: COMPLETED Source: [facility] HNO ID: [id number] Author: CECILIO PICKETT, RACHEL Service: Emergency Medicine [...] Observed: 04/20/2025 8:39 PM Status: COMPLETED Source: [facility] HNO ID: [id number] Author: CECILIO PICKETT RN Service: Emergency Medicine [...] Observed: 04/20/2025 8:34 PM Status: COMPLETED Source: [facility] HNO ID: [id number] Author: JEAN-PAUL BORRERO RPh Service: Pharmacy Author [...] have any questions[place] [phone]. Age: [age] year old Allergies: ALLERGIES Allergen [...] Value 06/30/2023 2138 6.0 (L) Jean-Paul Borrero [facility] ED NOTE Observed: 04/20/2025 7:35 PM Status: COMPLETED Source: [facility] HNO ID: [id number] Author: LIZZY SANTANA CT Service: Emergency Medicine Author Type: Clinical Care Worker Type: ED Notes Filed: 04/20/2025 19:36 Note Text: Safety and comfort care check round ED PROV NOTE Observed: 04/20/2025 7:31 PM Status: COMPLETED Source: [facility] HNO ID: [id number] Author: VERONIKA GAYLE MD Service: Emergency Medicine [...] (HCC) 2005 ESRD from HTN Dialysis M,W,F [facility] [phone] Essential hypertension, benign 1998 EKG 09/30 NL. [...] jacket, goes to wound care center in [place] PAST SURGICAL HISTORY Procedure Laterality Date ARTERIOVENOUS FISTULA Left 08/29/2010 CAPSULE ENDOSCOPY 07/01/2023 CARDIOVERSION-ELECTIVE N/A 12/03/2018 200 joules synchronized - successful COLONOSCOPY 07/01/2023 EGD 06/27/2023 HERNIA REPAIR HX PAST SURGICAL HISTORY OF 08/29/2010 dialysis fistula left arm PAST SURGICAL HISTORY OF Right 03/2019 Right leg femoral vein to superficial femoral artery loop graft mid thigh REPAIR CLEFT LIP RMVL LEANN CVC W/O SUBQ PORT/BANQUET STEWARDESS 01/17/2013 [facility]X CARDIAC RADIOFREQUENCY ABLATION 08/21/2021 s/p [...] 9.18 (*) 1.45 - 7.50 k/uL Abs [place] 1.66 (*) <0.87 k/uL Abs Immature Gran [...] laboratory APTT reagent in use throughout the [facility]. C-REACTIVE PROTEIN - Abnormal; Notable for the following components: CRP 22.1 (*) <0.9 mg/dL All other components within normal limits [facility] (POC) TYPE [...] of other records: Was seen at outside [facility] ED two days ago. Differential [...] Observed: 04/20/2025 7:31 PM Status: COMPLETED Source: [facility] HNO ID: [id number] Author: LIZZY SANTANA CT Service: ? Author Type: Clinical Care Worker Type: ED Notes Filed: 04/20/2025 19:31 Note Text: EKG obtained COMP METAB 2000 PNL SERPL Collected: 6:22 PM Status: F Source: [facility] Order Comment: Specimen Type : BLOOD SPECIMEN Ordering Facility: [facility] Address: [address] [place] [address] TYPE CODE TESTS RESULT OUT OF RANGE REFERENCE UNITS LAB 2885-2(LOINC) Prot SerPl-mCnc 8.9 High 6.3-8.0 g/dL LAB 1751-7(LOINC) Albumin SerPl-mCnc 3.4 Low 3.9-4.9 g/dL LAB 55008-4(LOINC) Calcium SerPl-mCnc 9.7 8.5-10.2 mg/dL LAB 1975-2(LOINC) Bilirub SerPl-mCnc 0.4 0.2-1.3 mg/dL LAB 6768-6(LOINC) ALP SerPl-cCnc 178 High 38-113 U/L LAB 1920-8(LOINC) AST SerPl-cCnc 17 14-40 U/L LAB 1742-6(LOINC) ALT SerPl-cCnc 10 10-54 U/L LAB 2345-7(LOINC) Glucose SerPl-mCnc 107 High 74-99 mg/dL Result Comment: The [place] Diabetes Association (ADA) provides guidance for cutoff [...] Standards of Medical Care in Diabetes 2016, [place] Diabetes Association. Diabetes Care. 2016.39(Suppl 1). LAB 3094-0(LOINC) BUN SerPl-mCnc 50 High 9-24 mg/dL LAB 2160-0(LOINC) Creat SerPl-mCnc 11.59 High 0.73-1.22 mg/dL LAB 2951-2(LOINC) Sodium SerPl-sCnc 138 136-144 mmol/L LAB 2823-3(LOINC) Potassium SerPl-sCnc 4.1 3.7-5.1 mmol/L LAB 2075-0(LOINC) Chloride SerPl-sCnc 97 Low 98-107 mmol/L LAB 2028-9(LOINC) CO2 SerPl-sCnc 19 Low 22-30 mmol/L LAB 14336-2(LOINC) Anion Gap SerPl-sCnc 22 High 8-15 mmol/L LAB 96882-2(LOINC) eGFRcr SerPlBld CKD-EPI 2020 5 Low >=60 [...] accurately reflect actual GFR. Performed By: #### 78020-3, 1988-01, #### [facility] CLIA [id number] [address] [place] [address] [place] CRP SERPL-MCNC Collected: 04/20/2025 6:22 PM Status: F Source: [facility] Order Comment: Specimen Type : BLOOD SPECIMEN Ordering Facility: [facility] Address: [address] [place] [address] TYPE CODE TESTS RESULT OUT OF RANGE REFERENCE UNITS LAB 1988-01([facility]) CRP SerPl-mCnc 22.1 High <0.9 mg/dL Performed By: #### 25006-4, 1988-01, #### [facility] CLIA [id number] [address] [place] [address] [place] MAGNESIUM SERPL-MCNC Collected: 04/20/2025 6:22 PM S tatus: F Source: [facility] Comment: Specimen Type : BLOOD SPECIMEN Ordering Facility: [facility] Address: [address] [place] [address] TYPE CODE TESTS RESULT OUT OF RANGE REFERENCE UNITS LAB ([facility]) Magnesium SerPl-mCnc 2.5 High 1.7-2.3 mg/dL Performed By: #### 90165-9, 1988-01, #### [facility] CLIA [id number] [address] [place] [address] [place] CBC W AUTO DIFF BLD Collected: 04/20/2025 6:[address] atus: F Source: [facility] Order Comment: Specimen Type : BLOOD SPECIMEN Ordering Facility: [facility] Address: [place] [address] TYPE CODE TESTS RESULT OUT OF RANGE REFERENCE UNITS LAB 6690-2([facility]) WBC # Bld Auto 13.20 High 3.70-11.00 k/uL LAB 789-8([facility]) RBC # Bld Auto 3.39 Low 4.20-6.00 m/ uL LAB 718-7([facility]) Hgb Bld-mCnc 9.5 Low 13.0-17.0 g/dL LAB 4544-3([facility]) Hct VFr Bld Auto 31.3 Low 39.0-51.0 % LAB 787-2([facility]) MCV RBC Auto 92.3 80.0-100.0 fL LAB 785-6([facility]) MCH RBC Qn Auto 28.0 26.0-34.0 p g LAB 786-4([facility]) MCHC RBC Auto-mCnc 30.4 Low 30.5-36.0 g/dL LAB 29859-6([facility]) RDW RBC-Rto 20.6 High 11.5-15.0 % LAB 777-3([facility]) Platelet # Bld Auto 373 150-400 k/uL LAB 47981-8([facility]) PMV Bld Auto 10.3 9.0-12.7 fL LAB [...] Eosinophil/leuk NFr Bld Auto 1.3 % LAB 711-2([facility]) Eosinophil # Bld Auto 0.17 <0.46 k/uL LAB 706-2([facility]) Basophils/leuk NFr Bld Auto 0.5 % LAB 704-7([facility]) Basophils # Bld Auto 0.06 <0.11 k/uL LAB 79303-4([facility]) Imm Granulocytes/fely k NFr Bld Auto 0.9 % LAB 83243-1([facility]) Imm Granulocytes # Bld Auto 0.12 High <0.10 k/uL LAB 24086-4([facility]) nRBC/100 WBC Bld-Rto 0.0 /100 WBC LAB 771-6([facility]) nRBC # Bld Auto <0.01 <0.01 k/u L LAB 99620-0([facility]) Differential method Bld Auto Performed By: #### 4537-7, 7020-8 #### [facility] CLIA [id number] [address] [place] [address] [place] ESR BLD QN WESTRGRN Collected: 04/20/2025 6:[address] atus: F Source: [facility] Order Comment: Specimen Type : BLOOD SPECIMEN Ordering Facility: [facility] Address: [address] [place] [address] TYPE CODE TESTS RESULT OUT OF RANGE REFERENCE UNITS LAB 4537-7([facility]) ESR Bld Qn Westrgrn 133 High 0-15 mm/hr Performed By: #### 4537-7, 5 7020-8 #### [facility] CLIA [id number] [address] [place] [address] [place] TYPE + SCREEN Collected: 04/20/2025 6:22 PM Status: F Source: [facility] Order Comment: Specimen Type : BLOOD SPECIMEN Ordering Facility: [facility] Address: [address] [place] [address] TYPE CODE TESTS RESULT OUT OF RANGE REFERENCE UNITS LAB 6412947160 ABO B LAB [id number] RH Positive LAB [id number] ANTIBODY SCREEN Negative LAB 3242912984 TYPE AND SCREEN EXPIRATION 04/23/2025 23:59 Performed By: #### TSCR #### [facility] CLIA [id number] [address] [place] [address] [place] PT PNL PPP Collected: 04/20/2025 6:22 PM Status: F Source: [facility] Order Comment: Specimen Type : BLOOD SPECIMEN Ordering Facility: [facility] Address: [address] [place] [address] TYPE CODE TESTS RESULT OUT OF RANGE REFERENCE UNITS LAB 5902-2(LOINC) Prothrombin time 33.2 High 9.7-13.0 sec LAB 6301-6(LOINC) INR PPP 3.3 High 0.9-1.3 Result Comment: Vitamin K An tagonist (VKA) Therapeutic Range: INR 2 to 3 (Target INR of 2.5) Note: For patients treated with VKA drugs, such as warfarin, the [employer] College of Chest Physicians 2012 Guideline recommends [...] Chest 2012, 141:7S-47S Kevin RA, et al. [facility] 2017, 70: 252-289 Performed By: #### 87064-9, 68542-3 #### [facility] IA [id number] [address] [place], [place] [address] [id number] [place] APTT PPP Collected: 6:22 PM Status: F Source: [facility] Order Comment: Specimen Type : BLOOD SPECIMEN Ordering Facility: [facility] Address: [address] [place] [address] TYPE CODE TESTS RESULT OUT OF RANGE REFERENCE UNITS LAB 12155-9(LOINC) aPTT PPP 43.3 High 23.0-32.4 sec Performed By: #### 35166-2, 97987-7 #### [facility] CLIA [id number] [address] [place] [address] OF [facility] ED TRIAGE NOTE Observed: 04/20/2025 4:21 PM Status: COMPLETED Source: [facility] HNO ID: [id number] Author: NORAH CALERO MD Service: Emergency Medicine [...] Observed: 01/05/2025 2:45 PM Status: COMPLETED [facility] Encounter addended by: Jen Joel RN on: 01/05/2025 5:12 PM Actions taken: Order list changed, Diagnosis association updated PROGRESS NOTE Observed: 01/05/2025 2:45 PM Status: COMPLETED Source: [facility] Assessments Nursing Assessment/Reassessment Score (check box all [...] Test Results/Process Orders 10 [x] Staff telephones WHEEL FILLER, Nursing Homes/Clarify Orders 10 [] Routine Transfer [...] Observed: 01/05/2025 2:45 PM Status: COMPLETED Source: [facility] Follow-up Appointments: Return Appointment in 1 week. Call [place] wound [facility] at [phone], [facility] at [phone], or [facility] at [phone]. will call when she looks at her [...] diabetics Please call the wound center at [phone] if you are experiencing this. If we are closed and you are unable to reach us in person please go to the ER. PROGRESS NOTE Observed: 01/05/2025 2:45 PM Status: COMPLETED Source: [facility] WOUND CARE & HYPERBARIC OXYGEN THERAPY - [place] [address] [place] [address] Loc: [phone] Wound Care Visit - New Patient Progress Note CHIEF COMPLAINT: Wound Check HISTORY OF PRESENT ILLNESS: The patient is a 44 y.o. male with multiple open wounds of chest, abdomen and back. States wounds have been present for several years. Uncertain origin. Has sought wound care in [place] in past, 01/2022-01/2024. States he is on warfarin and wounds often bleed. Has been to ER on several recent occasions with bleeding. Currently using xeroform to wounds. He is ESRD on dialysis. PAST MEDICAL HISTORY Past Medical History: Diagnosis Date ESRD (end stage renal disease) (HCC) KIDNEY TRANSPLANT LIST Hemodialysis patient ([facility]/HCC) ([facility]) FRIDAY, FRIDAY AND FRIDAY IN [place] Hx of blood clots 2016 PE AND ON ELIQUIS Hypertension NO MEDICATION Morbidly obese ([facility]) 03/26/2019 BMI 43.03 YEIMY on CPAP PAST [...] (Active) Wound Image 01/05/25 153 Site Assessment Granulation;Pale;Lorton;Painful;Sloughing 01/05/25 1531 Skye-Wound Assessment Dry 01/05/25 1531 [...] (Active) Wound Image 01/05/25 1601 Site Assessment Black;Brown;Fragile;Painful;Lorton;Sloughing 01/05/25 1601 Skye-Wound Assessment Dry 01/05/25 1601 [...] SERPL Collected: 11:18 PM Status: F Source: [facility] Order Comment: Specimen Type : BLOOD SPECIMEN Ordering Facility: [facility] Address: [address] [place] [address] TYPE CODE TESTS RESULT OUT OF RANGE REFERENCE UNITS LAB 2885-2(LOINC) Prot SerPl-mCnc 8.7 High 6.3-8.0 g/dL LAB 1751-7(LOINC) Albumin SerPl-mCnc 3.7 Low 3.9-4.9 g/dL LAB 87581-3(LOINC) Calcium SerPl-mCnc 9.3 8.5-10.2 mg/dL LAB 1975-2(LOINC) Bilirub SerPl-mCnc 0.3 0.2-1.3 mg/dL LAB 6768-6(LOINC) ALP SerPl-cCnc 167 High 38-113 U/L LAB 1920-8(LOINC) AST SerPl-cCnc 21 14-40 U/L LAB 1742-6(LOINC) ALT SerPl-cCnc 14 10-54 U/L LAB 2345-7(LOINC) Glucose SerPl-mCnc 93 74-99 mg/dL Result Comment: The [place] Diabetes Association (ADA) provides guidance for cutoff [...] Standards of Medical Care in Diabetes 2016, [place] Diabetes Association. Diabetes Care. 2016.39(Suppl 1). LAB 3094-0(LOINC) BUN SerPl-mCnc 45 High 9-24 mg/ dL LAB 2160-0(LOINC) Creat SerPl-mCnc 8.82 High 0.73-1.22 mg/dL LAB 2951-2(LOINC) Sodium SerPl-sCnc 137 136-144 mmol/L LAB 2823-3(LOINC) Potassium SerPl-sCnc 4.9 3.7-5.1 mmol/L LAB 2075-0(LOINC) Chloride SerPl-sCnc 95 Low 98-107 mmol/L LAB 2028-9(LOINC) CO2 SerPl-sCnc 21 Low 22-30 mmo l/L LAB 20255-3(LOINC) Anion Gap SerPl-sCnc 21 High 8-15 mmol/L LAB 37291-1(LOINC) Creatinine + eGFR Pnl SerPlBld 7 Low [...] accurately reflect actual GFR. Performed By: #### 42669-5 # ### [facility] CLIA [id number] [address] [place] [address] [place] PT PNL PPP Collected: 11:18 PM Status: F Source: [facility] Order Comment: Specimen Type : BLOOD SPECIMEN Ordering Facility: [facility] Address: [address] [place] [address] TYPE CODE TESTS RESULT OUT OF RANGE REFERENCE UNITS LAB 5902-2(LOINC) Prothrombin time 19.8 High 9.7-13.0 sec LAB 6301-6(LOINC) INR PPP 1.9 High 0.9-1.3 Result Comment: Vitamin K An tagonist (VKA) Therapeutic Range: INR 2 to 3 (Target INR of 2.5) Note: For patients treated with VKA drugs, such as warfarin, the [employer] College of Chest Physicians 2012 Guideline recommends [...] Chest 2012, 141:7S-47S Kevin RA, et al. [facility] 2017, 70: 252-289 Performed By: #### 60636-9 # ### [facility] CLIA [id number] [address] [place] [address] [place] CBC W AUTO DIFF BLD Collected: 12/28/2024 11:18 PM S tatus: F Source: [facility] Order Comment: Specimen Type : BLOOD SPECIMEN Ordering Facility: [facility] Address: [address] [place] [address] TYPE CODE TESTS RESULT OUT OF RANGE REFERENCE UNITS LAB 6690-2(LOINC) WBC # Bld Auto 7.60 3.70-11.00 k/uL LAB 789-8(LOINC) RBC # Bld Auto 3.26 Low 4.20-6.00 m/ uL LAB 718-7(LOINC) Hgb Bld-mCnc 9.4 Low 13.0-17.0 g/dL LAB 4544-3([facility]) Hct VFr Bld Auto 30.7 Low 39.0-51.0 % LAB 787-2([facility]) MCV RBC Auto 94.2 80.0-100.0 fL LAB 785-6([facility]) MCH RBC Qn Auto 28.8 26.0-34.0 p g LAB 786-4([facility]) MCHC RBC Auto-mCnc 30.6 30.5-36.0 g/dL LAB 56025-8([facility]) RDW RBC-Rto 18.8 High 11.5-15.0 % LAB 777-3([facility]) Platelet # Bld Auto 243 150-400 k/uL LAB 12865-4([facility]) PMV Bld Auto 10.7 9.0-12.7 fL LAB 770-8([facility]) Neutrophils/leuk NFr Bld Auto 72.0 % LAB 751-8([facility]) Neutrophils # Bld Auto 5.47 1.45-7.50 k/uL LAB 736-9([facility]) Lymphocytes/leuk NFr Bld Auto 11.4 % LAB 731-0([facility]) Lymphocytes # Bld Auto 0.87 Low 1.00-4.00 k/uL LAB 5905-5([facility]) Monocytes/leuk NFr Bld Auto 12.1 % LAB 742-7([facility]) Monocytes # Bld Auto 0.92 High <0.87 k/uL LAB 713-8([facility]) Eosinophil/leuk NFr Bld Auto 3.4 % LAB 711-2([facility]) Eosinophil # Bld Auto 0.26 <0.46 k/uL LAB 706-2([facility]) Basophils/leuk NFr Bld Auto 0.4 % LAB 704-7([facility]) Basophils # Bld Auto 0.03 <0.11 k/uL LAB 84141-7([facility]) Imm Granulocytes/fely k NFr Bld Auto 0.7 % LAB 77498-3([facility]) Imm Granulocytes # Bld Auto 0.05 <0.10 k/uL LAB 84777-9([facility]) nRBC/100 WBC Bld-Rto 0.0 /100 WBC LAB 771-6(LOINC) nRBC # Bld Auto <0.01 <0.01 k/u L LAB 67780-1([facility]) Differential method Bld Auto Performed By: #### 38414-6 # ### [facility] CLIA [id number] [address] [place] [address] [facility] ED PROV NOTE Observed: 12/28/2024 11:11 PM Status: COMPLETED Source: [facility] HNO ID: [id number] Author: SILVIANO BELL MD Service: Emergency Medicine [...] Of note, the patient presented to a [facility] ED 2 days ago for bleeding from [...] (HCC) 2005 ESRD from HTN Dialysis M,W,F [facility] [phone] Essential hypertension, benign 1998 EKG 09/30 NL. [...] Paroxysmal atrial fibrillation (HCC) PE (pulmonary thromboembolism) ([facility]) Pelvic mass Pseudoaneurysm of AV hemodialysis fistula ([facility]) Wound of right side of back from friction/rubbing of jacket, goes to wound care center in [place] PAST SURGICAL HISTORY Procedure Laterality Date ARTERIOVENOUS FISTULA Left 08/29/2010 CAPSULE ENDOSCOPY 07/01/2023 CARDIOVERSION-ELECTIVE N/A 12/03/2018 200 joules synchronized - successful COLONOSCOPY 07/01/2023 EGD 06/27/2023 HERNIA REPAIR HX PAST SURGICAL HISTORY OF 08/29/2010 dialysis fistula left arm PAST SURGICAL HISTORY OF Right 03/2019 Right leg femoral vein to superficial femoral artery loop graft mid thigh REPAIR CLEFT LIP RMVL LEANN CVC W/O SUBQ PORT/BANQUET STEWARDESS 01/17/2013 SHX CARDIAC RADIOFREQUENCY ABLATION 08/21/2021 s/p [...] 0.87 (*) 1.00 - 4.00 k/uL Abs Fentress 0.92 (*) <0.87 k/uL All other components [...] (ANC) 5.47 Lymph% 11.4 Abs Lymph 0.87(!) Fentress% 12.1 Abs Fentress 0.92(!) Eosin% 3.4 Abs Eosin 0.26 Baso% [...] Collected: 12/26/2024 1:34 AM Status: F Source: [facility] TYPE CODE TESTS RESULT OUT OF RANGE [...] K/uL Performed By: #### CBCWD ### # [facility] [address] [place] [address] PROTHROMBIN TIME Collected: 12/26/2024 1:34 AM Statu s: F Source: [facility] TYPE CODE TESTS RESULT OUT OF RANGE REFERENCE UNITS LAB PTI Prothrombin Time 34.8 High alert 12.3-14.9 sec LAB INR INR 3.2 Performed By: #### PT #### [facility] [address] [place] [address] PARTIAL THROMBOPLASTIN TIME Collected: 12/26/2024 1:3 4 AM Status: F Source: [facility] TYPE CODE TESTS RESULT OUT OF RANGE REFERENCE UNITS LAB PTT Partial Thromboplastin Time 60.1 High alert 24.4-36.8 sec Result Comment: Effective : Heparin Therapeutic Range: 64.0 ? 98.0 seconds. Performed By: #### PTT #### [facility] [address] [place] [address] BASIC METABOLIC PANEL Collected: 2024 1:33 AM Status: F Source: [facility] Order Comment: CALL [facility] L[facility] D tel. [phone], CREAT results called to and read back [...] 8.5-9.9 mg/dL Performed By: #### BMP #### [facility] [address] [facility] [address] PT PNL PPP Collected: 11/26/2024 6:41 AM Status: F Source: [facility] Order Comment: Specimen Type : BLOOD SPECIMEN Ordering Facility: [facility] (100, 200) Address: [address] [place] [address], [place] [address] TYPE CODE TESTS RESULT OUT OF RANGE REFERENCE UNITS LAB 5902-2(LOINC) Prothrombin time 43.9 High 9.7-13.0 sec LAB 6301-6(LOINC) INR PPP 4.3 High 0.9-1.3 Result Comment: Vitamin K An tagonist (VKA) Therapeutic Range: INR 2 to 3 (Target INR of 2.5) Note: For patients treated with VKA drugs, such as warfarin, the [employer] 2012 Guideline recommends [...] Chest 2012, 141:7S-47S Kevin RUSHING et al. [facility] 2017, 70: 252-289 Performed By: #### 84568-6 # ### [facility] CLIA [id number] [place] PT PNL PPP Collected: 11/22/2024 7:18 AM Status: F Source: [facility] Order Comment: Specimen Type : BLOOD SPECIMEN Ordering Facility: [facility] (100, 200) Address: [address] [place] [address] TYPE CODE TESTS RESULT OUT OF RANGE REFERENCE UNITS LAB 5902-2(LOINC) Prothrombin time 33.1 High 9.7-13.0 sec LAB 6301-6(LOINC) INR PPP 3.2 High 0.9-1.3 Result Comment: Vitamin K An tagonist (VKA) Therapeutic Range: INR 2 to 3 (Target INR of 2.5) Note: For patients treated with VKA drugs, such as warfarin, the [employer]icians 2012 Guideline recommends [...] JAC 2017, 70: 252-289 Performed By: #### 66484-6 # ### [facility] CLIA [id number] [address] [place] [id number] [place] COMP METAB 2000 PNL SERPL Collected: 7:18 AM Status: F Source: [facility] Order Comment: Specimen Type : BLOOD SPECIMEN Ordering Facility: [facility] (100, 200) Address: [address] [place] [address] [place] [address] TYPE CODE TESTS RESULT OUT OF RANGE REFERENCE UNITS LAB 2885-2(LOINC) Prot SerPl-mCnc 9.4 High 6.3-8.0 g/dL LAB 1751-7(LOINC) Albumin SerPl-mCnc 3.7 Low 3.9-4.9 g/dL LAB 69793-0(LOINC) Calcium SerPl-mCnc 9.0 8.5-10.2 mg/dL LAB 1975-2(LOINC) Bilirub SerPl-mCnc 0.4 0.2-1.3 mg/dL LAB 6768-6(LOINC) ALP SerPl-cCnc 157 High 38-113 U/L LAB 1920-8(LOINC) AST SerPl-cCnc 29 14-40 U/L LAB 1742-6(LOINC) ALT SerPl-cCnc 23 10-54 U/L LAB 2345-7(LOINC) Glucose SerPl-mCnc 49 Low 74-99 mg/dL Result Comment: The [place] Diabetes Association (ADA) provides guidance for cutoff [...] Standards of Medical Care in Diabetes 2016, [place] Diabetes Association. Diabetes Care. 2016.39(Suppl 1). LAB 3094-0(LOINC) BUN SerPl-mCnc 71 High 9-24 mg/ dL LAB 2160-0(LOINC) Creat SerPl-mCnc 12.45 High 0.73-1.22 mg/dL LAB 2951-2(LOINC) Sodium SerPl-sCnc 133 Low 136-144 mmol/L LAB 2823-3(LOINC) Potassium SerPl-sCnc 6.2 High Alert 3.7-5.1 mmol/L LAB 2075-0(LOINC) Chloride SerPl-sCnc 88 Low 98-107 mmol/L LAB 2027-9(LOINC) CO2 SerPl-sCnc 20 Low 22-30 mmo l/L LAB 63755-6(LOINC) Anion Gap SerPl-sCnc 25 High 8-15 mmol/L LAB 22606-2(LOINC) Creatinine + eGFR Pnl SerPlBld 5 Low [...] accurately reflect actual GFR. Performed By: #### 86799-8, 10999-1 #### [facility] [id number] [address] [place] [address] [place] CBC W AUTO DIFF BLD Collected: 11/22/2024 7:[address] atus: F Source: [facility] Order Comment: Specimen Type : BLOOD SPECIMEN Ordering Facility: [facility] (062, 200) Address: [address] [place] [address] TYPE CODE TESTS RESULT OUT OF RANGE REFERENCE UNITS LAB 6690-2(LOINC) WBC # Bld Auto 12.84 High 3.70-11.00 k/uL LAB 789-8(LOINC) RBC # Bld Auto 3.93 Low 4.20-6.00 m/ uL LAB 718-7(LOINC) Hgb Bld-mCnc 11.1 Low 13.0-17.0 g/dL LAB 4544-3(LOINC) Hct VFr Bld Auto 37.4 Low 39.0-51.0 % LAB 787-2(LOINC) MCV RBC Auto 95.2 80.0-100.0 fL LAB 785-6([facility]) MCH RBC Qn Auto 28.2 26.0-34.0 p g LAB 786-4([facility]) MCHC RBC Auto-mCnc 29.7 Low 30.5-36.0 g/dL LAB 53624-7([facility]) RDW RBC-Rto 18.4 High 11.5-15.0 % LAB 777-3([facility]) Platelet # Bld Auto 131 Low 150-400 k/uL Result Comment: No clot dete cted. LAB 60389-0([facility]) PMV Bld Auto 13.3 High 9.0-12.7 fL LAB 770-8([facility]) Neutrophils/leuk NFr Bld Auto 76.3 % LAB 751-8([facility]) Neutrophils # Bld Auto 9.79 High 1.45-7.50 k/uL LAB 736-9([facility]) Lymphocytes/leuk NFr Bld Auto 9.0 % LAB 731-0([facility]) Lymphocytes # Bld Auto 1.16 1.00-4.00 k/uL LAB 5905-5([facility]) Monocytes/leuk NFr Bld Auto 11.5 % LAB 742-7([facility]) Monocytes # Bld Auto 1.48 High <0.87 k/uL LAB 713-8([facility]) Eosinophil/leuk NFr Bld Auto 1.9 % LAB 711-2([facility]) Eosinophil # Bld Auto 0.24 <0.46 k/uL LAB 706-2([facility]) Basophils/leuk NFr Bld Auto 0.3 % LAB 704-7([facility]) Basophils # Bld Auto 0.04 <0.11 k/uL LAB 37606-2([facility]) Imm Granulocytes/fley k NFr Bld Auto 1.0 % LAB 01894-2([facility]) Imm Granulocytes # Bld Auto 0.13 High <0.10 k/uL LAB 45318-7([facility]) nRBC/100 WBC Bld-Rto 0.0 /100 WBC LAB 771-6([facility]) nRBC # Bld Auto <0.01 <0.01 k/u L LAB 08708-8([facility]) Platelet # Bld Est Decreased LAB 5908-9(LOINC) Giant Platelets Bld Ql Smear Present LAB 80274-3([facility]) Differential method Bld Auto Performed By: #### 90130-2, 34164-0 #### [facility] CLIA [id number] [address] FLUABV+SARS-COV-2+RSV PNL RE SP CARLOS+PROBE Observed: 11/21/2024 11:34 AM Status: F Source: [facility] SARS-COV-2 (AGENT OF COVID-1 9) RNA: Not detectedINFLUENZA A RNA: Not detectedINFLUENZA B RNA: Not detectedRESPIRATORY SYNCYTIAL VIRUS (RSV) RNA: Not detected Performed By: #### 17114-7 # ### [facility] CLIA [id number] [address] PT PNL PPP Collected: 11/19/2024 8:51 AM Status: F Source: [facility] Order Comment: Specimen Type : BLOOD SPECIMEN Ordering Facility: [facility] (100, 200) Address: [address] [place] [address] TYPE CODE TESTS RESULT OUT OF RANGE REFERENCE UNITS LAB 5902-2(LOINC) Prothrombin time 33.9 High 9.7-13.0 sec LAB 6301-6(LOINC) INR PPP 3.2 High 0.9-1.3 Result Comment: Vitamin K An tagonist (VKA) Therapeutic Range: INR 2 to 3 (Target INR of 2.5) Note: For patients treated with VKA drugs, such as warfarin, the [employer]icians 2012 Guideline recommends [...] JAC 2017, 70: 252-289 Performed By: #### 23147-8 # ### [facility] CLIA [id number] [address] [place] [address] [place] PT PNL PPP Collected: 11/17/2024 5:56 AM Status: F Source: [facility] Order Comment: Specimen Type : BLOOD SPECIMEN Ordering Facility: [facility] (100, 200) Address: [address] [place] [address] TYPE CODE TESTS RESULT OUT OF RANGE REFERENCE UNITS LAB 5902-2(LOINC) Prothrombin time 27.6 High 9.7-13.0 sec LAB 6301-6(LOINC) INR PPP 2.6 High 0.9-1.3 Result Comment: Vitamin K An tagonist (VKA) Therapeutic Range: INR 2 to 3 (Target INR of 2.5) Note: For patients treated with VKA drugs, such as warfarin, the [employer] Chest [employer]icians 2012 Guideline recommends [...] JAC 2017, 70: 252-289 Performed By: #### 71457-3 # ### [facility] CLIA [id number] [address] [place] [address] [place] CBC W AUTO DIFF BLD Collected: 11/15/2024 7:[address] atus: F Source: [facility] Order Comment: Specimen Type : BLOOD SPECIMEN Ordering Facility: [facility] (100, 200) Address: [address] [place] [address], [place] [address] TYPE CODE TESTS RESULT OUT OF RANGE [...] RBC Auto-mCnc 29.9 Low 30.5-36.0 g/dL LAB 73091-8(INC) RDW RBC-Rto 18.6 High 11.5-15.0 % LAB 777-3(LOINC) Platelet # Bld Auto 209 150-400 k/uL LAB 77596-4(LOINC) PMV Bld Auto 11.7 9.0-12.7 fL LAB [...] # Bld Auto 0.08 <0.11 k/uL LAB 34303-7([facility]) Imm Granulocytes/fely k NFr Bld Auto 0.6 % LAB 24254-3([facility]) Imm Granulocytes # Bld Auto 0.04 <0.10 k/uL LAB 35989-7([facility]) nRBC/100 WBC Bld-Rto 0.0 /100 WBC LAB 771-6([facility]) nRBC # Bld Auto <0.01 <0.01 k/u L LAB 64544-5([facility]) Differential method Bld Auto Performed By: #### 29028-2, 10213-6 #### [facility] CLIA [id number] [address] [place] COMP METAB 2000 PNL SERPL Collected: 7:30 AM Status: F Source: [facility] Order Comment: Specimen Type : BLOOD SPECIMEN Ordering Facility: [facility] (100, 200) Address: [address] [place] [address] TYPE CODE TESTS RESULT OUT OF RANGE REFERENCE UNITS LAB 2885-2([facility]) Prot SerPl-mCnc 8.4 High 6.3-8.0 g/dL LAB 1751-7(LOINC) Albumin SerPl-mCnc 3.7 Low 3.9-4.9 g/dL LAB 45442-4(LOINC) Calcium SerPl-mCnc 9.0 8.5-10.2 mg/dL LAB 1975-2(LOINC) Bilirub SerPl-mCnc 0.3 0.2-1.3 mg/dL LAB 6768-6(INC) ALP SerPl-cCnc 162 High 38-113 U/L LAB 1920-8(LOINC) AST SerPl-cCnc 30 14-40 U/L LAB 1742-6(LOINC) ALT SerPl-cCnc 24 10-54 U/L LAB 2345-7(LOINC) Glucose SerPl-mCnc 66 Low 74-99 mg/dL Result Comment: The [place] Diabetes Association (ADA) provides guidance for cutoff [...] Standards of Medical Care in Diabetes 2016, [place] Diabetes Association. Diabetes Care. 2016.39(Suppl 1). LAB 3094-0(LOINC) BUN SerPl-mCnc 50 High 9-24 mg/ dL LAB 2160-0(LOINC) Creat SerPl-mCnc 9.21 High 0.73-1.22 mg/dL LAB 2951-2(LOINC) Sodium SerPl-sCnc 137 136-144 mmol/L LAB 2823-3(LOINC) Potassium SerPl-sCnc 6.6 High Alert 3.7-5.1 mmol/L LAB 2075-0(LOINC) Chloride SerPl-sCnc 95 Low 98-107 mmol/L LAB 2028-9(LOINC) CO2 SerPl-sCnc 23 22-30 mmo l/L LAB 15755-9(LOINC) Anion Gap SerPl-sCnc 19 High 8-15 mmol/L LAB 70653-4(LOINC) Creatinine + eGFR Pnl SerPlBld 7 Low [...] accurately reflect actual GFR. Performed By: #### 86539-7, 94522-4 #### [facility] CLIA [id number] [address] [place] [address] [place] PT PNL PPP Collected: 11/15/2024 7:30 AM Status: F Source: [facility] Order Comment: Specimen Type : BLOOD SPECIMEN Ordering Facility: [facility] (100, 200) Address: [address] [place] [address] TYPE CODE TESTS RESULT OUT OF RANGE REFERENCE UNITS LAB 5902-2(LOINC) Prothrombin time 18.8 High 9.7-13.0 sec LAB 6301-6(LOINC) INR PPP 1.7 High 0.9-1.3 Result Comment: Vitamin K An tagonist (VKA) Therapeutic Range: INR 2 to 3 (Target INR of 2.5) Note: For patients treated with VKA drugs, such as warfarin, the [place] [employer] Chest [employer]icians 2012 Guideline recommends [...] Chest 2012, 141:7S-47S Kevin RA, et al. [facility] 2017, 70: 252-289 Performed By: #### 90179-1 # ### [facility] [place] [id number] [address] [place] [address] [place] PT PNL PPP Collected: 11/12/2024 6:20 PM Status: F Source: [facility] Order Comment: Specimen Type : BLOOD SPECIMEN Ordering Facility: [facility] (100, 200) Address: [address] [place] [address] TYPE CODE TESTS RESULT OUT OF RANGE REFERENCE UNITS LAB 5902-2(LOINC) Prothrombin time 16.9 High 9.7-13.0 sec LAB 6301-6(LOINC) INR PPP 1.5 High 0.9-1.3 Result Comment: Vitamin K An tagonist (VKA) Therapeutic Range: INR 2 to 3 (Target INR of 2.5) Note: For patients treated with VKA drugs, such as warfarin, the [place] [employer] Chest Physicians 2012 Guideline recommends [...] Chest 2012, 141:7S-47S Kevin RA, et al. [facility] 2017, 70: 252-289 Performed By: #### 90304-8 # ### [facility] CLIA [id number] [address] [place] [address] [place] PT PNL PPP Collected: 11/12/2024 5:57 AM Status: F Source: [facility] Order Comment: Specimen Type : BLOOD SPECIMEN Ordering Facility: [facility] (130, 377) Address: [address] [place] [address] TYPE CODE TESTS RESULT OUT OF RANGE REFERENCE UNITS LAB 5902-2(LOINC) Prothrombin time 16.2 High 9.7-13.0 sec LAB 6301-6(LOINC) INR PPP 1.5 High 0.9-1.3 Result Comment: Vitamin K An tagonist (VKA) Therapeutic Range: INR 2 to 3 (Target INR of 2.5) Note: For patients treated with VKA drugs, such as warfarin, the [place] College [employer] Chest Physicians 2012 Guideline recommends [...] Chest 2012, 141:7S-47S Kevin RUSHING et al. [facility] 2017, 70: 252-289 Performed By: #### 95739-6 # ### [facility] CLIA [id number] [address] [place] [address] [place] PT PNL PPP Collected: 11/10/2024 5:52 AM Status: F Source: [facility] Order Comment: Specimen Type : BLOOD SPECIMEN [facility]100, 200[facility] Address: [address] [place] [address] TYPE CODE TESTS RESULT OUT OF RANGE REFERENCE UNITS LAB 5902-2(LOINC) Prothrombin time 14.6 High 9.7-13.0 sec LAB 6301-6(LOINC) INR PPP 1.3 0.9-1.3 Result Comment: Vitamin K An tagonist (VKA) Therapeutic Range: INR 2 to 3 (Target INR of 2.5) Note: For patients treated with VKA drugs, such as warfarin, the [place] [employer] Chest Physicians 2012 Guideline recommends [...] Chest 2012, 141:7S-47S Kevin RUSHING et al. [facility] 2017, 70: 252-289 Performed By: #### 69880-3 # ### [facility] CLIA [id number] [place], [place] [id number] [facility] PT PNL PPP Collected: 11/08/2024 7:57 AM Status: F Source: [facility] Order Comment: Specimen Type : BLOOD SPECIMEN Ordering Facility: [facility] (100, 200) Address: [address] [place] [address], [place] [address] TYPE CODE TESTS RESULT OUT OF RANGE REFERENCE UNITS LAB 5902-2(LOINC) Prothrombin time 15.3 High 9.7-13.0 sec LAB 6301-6(LOINC) INR PPP 1.4 High 0.9-1.3 Result Comment: Vitamin K An tagonist (VKA) Therapeutic Range: INR 2 to 3 (Target INR of 2.5) Note: For patients treated with VKA drugs, such as warfarin, the [place] [employer] of Chest Physicians 2012 Guideline recommends [...] Chest 2012, 141:7S-47S Kevin RA, et al. [facility] 2017, 70: 252-289 Performed By: #### 51812-0 # ### [facility] [id number] [address] [place] [address] [place] CBC W AUTO DIFF BLD Collected: 11/08/2024 7:[address] atus: F Source: [facility] Order Comment: Specimen Type : BLOOD SPECIMEN Ordering Facility: [facility] (100, 200) Address: [id number] [place] [address], [place] [address] TYPE CODE TESTS RESULT OUT OF RANGE REFERENCE UNITS LAB 6690-2(LOINC) WBC # Bld Auto 6.19 3.70-11.00 k/uL LAB 789-8(LOINC) RBC # Bld Auto 3.09 Low 4.20-6.00 m/ uL LAB 718-7(LOINC) Hgb Bld-mCnc 9.0 Low 13.0-17.0 g/dL LAB 4544-3([facility]) Hct VFr Bld Auto 29.8 Low 39.0-51.0 % LAB 787-2([facility]) MCV RBC Auto 96.4 80.0-100.0 fL LAB 785-6([facility]) MCH RBC Qn Auto 29.1 26.0-34.0 p g LAB 786-4([facility]) MCHC RBC Auto-mCnc 30.2 Low 30.5-36.0 g/dL LAB 20235-8([facility]) RDW RBC-Rto 18.7 High 11.5-15.0 % LAB 777-3([facility]) Platelet # Bld Auto 189 150-400 k/uL LAB 50712-0([facility]) PMV Bld Auto 11.5 9.0-12.7 fL LAB 770-8([facility]) Neutrophils/leuk NFr Bld Auto 56.0 % LAB 751-8([facility]) Neutrophils # Bld Auto 3.47 1.45-7.50 k/uL LAB 736-9([facility]) Lymphocytes/leuk NFr Bld Auto 18.1 % LAB 731-0([facility]) Lymphocytes # Bld Auto 1.12 1.00-4.00 k/uL LAB 5905-5([facility]) Monocytes/leuk NFr Bld Auto 18.4 % LAB 742-7([facility]) Monocytes # Bld Auto 1.14 High <0.87 k/uL LAB 713-8([facility]) Eosinophil/leuk NFr Bld Auto 6.0 % LAB 711-2([facility]) Eosinophil # Bld Auto 0.37 <0.46 k/uL LAB 706-2([facility]) Basophils/leuk NFr Bld Auto 1.0 % LAB 704-7([facility]) Basophils # Bld Auto 0.06 <0.11 k/uL LAB 77458-7([facility]) Imm Granulocytes/fely k NFr Bld Auto 0.5 % LAB 43409-5([facility]) Imm Granulocytes # Bld Auto 0.03 <0.10 k/uL LAB 06284-6([facility]) nRBC/100 WBC Bld-Rto 0.0 /100 WBC LAB 771-6([facility]) nRBC # Bld Auto <0.01 <0.01 k/u L LAB 07685-0([facility]) Differential method Bld Auto Performed By: #### 96552-1, 69592-9 #### [facility] CLIA [id number] [address] [place] [address] [place] COMP METAB 2000 PNL SERPL Collected: 7:57 AM Status: F Source: [facility] Order Comment: Specimen Type : BLOOD SPECIMEN Ordering Facility: [facility] (100, 200) Address: [address] [place] [address], [place] [address] TYPE CODE TESTS RESULT OUT OF RANGE REFERENCE UNITS LAB 2885-2(LOINC) Prot SerPl-mCnc 8.0 6.3-8.0 g/dL LAB 1751-7(LOINC) Albumin SerPl-mCnc 3.8 Low 3.9-4.9 g/dL LAB 80917-3(LOINC) Calcium SerPl-mCnc 8.9 8.5-10.2 mg/dL LAB 1975-2(LOINC) Bilirub SerPl-mCnc 0.3 0.2-1.3 mg/dL LAB 6768-6(LOINC) ALP SerPl-cCnc 149 High 38-113 U/L LAB 1920-8(LOINC) AST SerPl-cCnc 27 14-40 U/L LAB 1742-6(LOINC) ALT SerPl-cCnc 19 10-54 U/L LAB 2345-7(LOINC) Glucose SerPl-mCnc 65 Low 74-99 mg/dL Result Comment: The [place] Diabetes Association (ADA) provides guidance for cutoff [...] Standards of Medical Care in Diabetes 2016, [place] Diabetes Association. Diabetes Care. 2016.39(Suppl 1). LAB 3094-0(LOINC) BUN SerPl-mCnc 38 High 9-24 mg/ dL LAB 2160-0(LOINC) Creat SerPl-mCnc 9.21 High 0.73-1.22 mg/dL LAB 2951-2(LOINC) Sodium SerPl-sCnc 138 136-144 mmol/L LAB 2823-3(LOINC) Potassium SerPl-sCnc 4.8 3.7-5.1 mmol/L LAB 2075-0(LOINC) Chloride SerPl-sCnc 96 Low 98-107 mmol/L LAB 2028-9(LOINC) CO2 SerPl-sCnc 24 22-30 mmo l/L LAB 77797-3(LOINC) Anion Gap SerPl-sCnc 18 High 8-15 mmol/L LAB 80962-2(LOINC) Creatinine + eGFR Pnl SerPlBld 7 Low [...] accurately reflect actual GFR. Performed By: #### 55894-3, 35289-7 #### [facility] CLIA [id number] [address] [place] [address] [place] CBC W AUTO DIFF BLD Collected: 11/05/2024 7:[address] [facility]: F Source: [facility] Order Comment: Specimen Type : BLOOD SPECIMEN Ordering Facility: [facility] (100, 200) Address: [address] [place] [address], [place] [address] TYPE CODE TESTS RESULT OUT OF RANGE REFERENCE UNITS LAB 6690-2(LOINC) WBC # Bld Auto 6.17 3.70-11.00 k/uL LAB 789-8(LOINC) RBC # Bld Auto 3.34 Low 4.20-6.00 m/ uL LAB 718-7(LOINC) Hgb Bld-mCnc 9.5 Low 13.0-17.0 g/dL LAB 4544-3([facility]) Hct VFr Bld Auto 31.6 Low 39.0-51.0 % LAB 787-2([facility]) MCV RBC Auto 94.6 80.0-100.0 fL LAB 785-6([facility]) MCH RBC Qn Auto 28.4 26.0-34.0 p g LAB 786-4([facility]) MCHC RBC Auto-mCnc 30.1 Low 30.5-36.0 g/dL LAB 49910-4([facility]) RDW RBC-Rto 18.8 High 11.5-15.0 % LAB 777-3([facility]) Platelet # Bld Auto 216 150-400 k/uL LAB 70813-3([facility]) PMV Bld Auto 11.2 9.0-12.7 fL LAB 770-8([facility]) Neutrophils/leuk NFr Bld Auto 59.8 % LAB 751-8([facility]) Neutrophils # Bld Auto 3.69 1.45-7.50 k/uL LAB 736-9([facility]) Lymphocytes/leuk NFr Bld Auto 17.7 % LAB 731-0([facility]) Lymphocytes # Bld Auto 1.09 1.00-4.00 k/uL LAB 5905-5([facility]) Monocytes/leuk NFr Bld Auto 16.2 % LAB 742-7([facility]) Monocytes # Bld Auto 1.00 High <0.87 k/uL LAB 713-8([facility]) Eosinophil/leuk NFr Bld Auto 5.2 % LAB 711-2([facility]) Eosinophil # Bld Auto 0.32 <0.46 k/uL LAB 706-2([facility]) Basophils/leuk NFr Bld Auto 0.8 % LAB 704[facility] [facility]) Basophils # Bld Auto 0.05 <0.11 k/uL LAB 08839-1([facility]) Imm Granulocytes/fely k NFr Bld Auto 0.3 % LAB 83501-5([facility]) Imm Granulocytes # Bld Auto <0.03 <0.10 k/uL LAB 07209-9([facility]) nRBC/100 WBC Bld-Rto 0.0 /100 WBC LAB 771-6(LOINC) nRBC # Bld Auto <0.01 <0.01 k/u L LAB 92806-8(INC) Differential method Bld Auto Performed By: #### 32355-4, 34327-5, 45038-9 #### [facility] CLIA [id number] [address] [place] [address] [place] PT PNL PPP Collected: 11/05/2024 7:08 AM Status: F Source: [facility] Order Comment: Specimen Type : BLOOD SPECIMEN Ordering Facility: [facility] (100, 200) Address: [address] [place] [address] TYPE CODE TESTS RESULT OUT OF RANGE REFERENCE UNITS LAB 5902-2(INC) Prothrombin time 19.4 High 9.7-13.0 sec LAB 6301-6(LOINC) INR PPP 1.8 High 0.9-1.3 Result Comment: Vitamin K An tagonist (VKA) Therapeutic Range: INR 2 to 3 (Target INR of 2.5) Note: For patients treated with VKA drugs, such as warfarin, the [employer] 2012 Guideline recommends [...] JACC 2017, 70: 252-289 Performed By: #### 50538-6, 27254-6, 77350-0 #### [facility] CLIA [id number] [address] [place] [address] [place] COMP METAB 2000 PNL SERPL Collected: 7:08 AM Status: F Source: [facility] Order Comment: Specimen Type : BLOOD SPECIMEN Ordering Facility: [facility] (100, 200) Address: [address] [place] [address], [place] [address] TYPE CODE TESTS RESULT OUT OF RANGE REFERENCE UNITS LAB 2885-2(LOINC) Prot SerPl-mCnc 8.5 High 6.3-8.0 g/dL LAB 1751-7(LOINC) Albumin SerPl-mCnc 4.1 3.9-4.9 g/dL LAB 82152-9(LOINC) Calcium SerPl-mCnc 8.9 8.5-10.2 mg/dL LAB 1975-2(LOINC) Bilirub SerPl-mCnc 0.3 0.2-1.3 mg/dL LAB 6768-6(LOINC) ALP SerPl-cCnc 157 High 38-113 U/L LAB 1920-8(LOINC) AST SerPl-cCnc 28 14-40 U/L LAB 1742-6(LOINC) ALT SerPl-cCnc 20 10-54 U/L LAB 2345-7(LOINC) Glucose SerPl-mCnc 87 74-99 mg/dL Result Comment: The [place] Diabetes Association (ADA) provides guidance for cutoff [...] Standards of Medical Care in Diabetes 2016, [place] Diabetes Association. Diabetes Care. 2016.39(Suppl 1). LAB 3094-0(LOINC) BUN SerPl-mCnc 23 9-24 mg/ dL LAB 2160-0(LOINC) Creat SerPl-mCnc 7.31 High 0.73-1.22 mg/dL LAB 2951-2(LOINC) Sodium SerPl-sCnc 140 136-144 mmol/L LAB 2823-3(LOINC) Potassium SerPl-sCnc 4.8 3.7-5.1 mmol/L LAB 2075-0(LOINC) Chloride SerPl-sCnc 97 Low 98-107 mmol/L LAB 2027-(LOINC) CO2 SerPl-sCnc 30 22-30 mmo l/L LAB 90369-3(LOINC) Anion Gap SerPl-sCnc 13 8-15 mmol/L LAB 49881-0(LOINC) Creatinine + eGFR Pnl SerPlBld 9 Low [...] accurately reflect actual GFR. Performed By: #### 93869-5, 48644-9, 55406-0 #### [facility] [id number] [address] [place] [address] OF [facility] PROGRESS Observed: 11/03/2024 10:39 AM Status: COMPLETED Source: [facility] ID: [id number] Author: JANIE MAGALLON APRN.INDUSTRIAL TECHNOLOGIST Service: ? Author Type: Nurse Practitioner Type: Progress Notes Filed: 11/03/2024 10:45 Note Text: Connected Care Unit Progress Note Facility: [facility] Level of Care: Skilled SNF Attending: Glen [...] (HCC) 2005 ESRD from HTN Dialysis M,W,F [facility] [phone] Essential hypertension, benign 1998 EKG 09/30 NL. 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 Medications: see current medication list in [facility] chart, reviewed (Medications in [facility] may not accurate, please see update in [facility] chart) Objective Data: Vital signs reviewed with [...] Observed: 11/02/2024 3:53 PM Status: COMPLETED Source: [facility] ID: [id number] Author: KALANI ARROYO MD Service: General Internal [...] IHD via left femoral vein TDC on MWF([facility] [place] ), SVC syndrome as a complication of [...] (deep vein thrombosis) PAF (paroxysmal atrial fibrillation) ([facility]) History of stroke Hypotension, chronic Anemia due to stage 5 chronic kidney disease, not on chronic dialysis (HCC) (HCC) Status post Maze operation for atrial fibrillation Skin ulcer, limited to breakdown of skin (HCC) Generalized weakness Impaired functional mobility, balance, gait, and endurance Ischemic ulcer with fat layer exposed ([facility]) Resolved Problems: SVC syndrome OPERATIONS PERFORMED WHILE IN THE HOSPITAL: None IMPORTANT TEST/PROCEDURES: No procedures performed TEST RESULTS NOT AVAILABLE AT THIS TIME: No pending results Discharge Disposition Discharge Disposition: Shelter Facility - Less than 30 Days Activity When You Leave the Hospital Resume pre-hospital activity SURGERY/PROCEDURE DATE: 10/22/2024 INCISION/PROCEDURE START TIME: 5:11 PM INCISION CLOSE/PROCEDURE END TIME: 6:52 PM SURGEON(S)/PROCEDURALIST(S) AND STAFFING ADMINISTRATOR(S): Surgeons and Role: * Jyoti Issa MD [...] results. FOLLOW-UP APPOINTMENTS ALREADY SCHEDULED WITH A [facility] PROVIDER: No future appointments. Discharge Information Row Name ED to Hosp-Admission (Current) from 10/12/2024 in HOSP MAIN H080 Shelter Facility Agency [facility] Phone# [phone] Other Follow-Up Type Outpatient Dialysis Name [facility] ([address] [place] [address]) Instructions Tues/Thurs/Sat @ 6am. Arrive by 5:40 [...] non tender abdomen 1+ pedal edema 5/5 baccarat manager strength Mild pain w/ extending arms R [...] Last HD Friday11/01/23 I have performed the ugki-oy-dgxd and relevant services for a total of >30 minutes. SIGNATURE: Kalani Arroyo MD DATE: November 02, 2024 TIME: 4:01 PM CASE MANAGEM Observed: 11/02/2024 3:20 PM Status: COMPLETED Source: [facility] ID: [id number] Author: KIN CASAS RN Service: Care Management Author Type: Registered Nurse Type: Care Mgt Progress Note Filed: 11/02/2024 15:23 Note Text: CARE MANAGEMENT DISCHARGE NOTE SERVICE DATE: November 02, 2024 SERVICE TIME: 3:21 PM Admission Date: 10/12/2024 LOS: 21 days Discharge Arrangement Discharge Arrangement: Shelter Facility Was an expedited discharge program used?: No Services Arranged Medical Services: Other: See Comment (SNF referral) Caregiver Assessment Caregiver is ready, willing and able to meet the patient's needs as recommended by the inter-professional team: Yes Name of Caregiver: [facility] Transportation Arrangements Transportation Arrangements: Ambulance Transportation Agency and Phone #:: [facility] [phone] Date of Trip: 11/02/24 Time of Trip: 1700 Type of Service: BLS Non-emergency Is Patient Medicaid Pending?: No Was transportation financial coverage discussed with family?: Patient Dive Superintendent Location: [place] Destination: [facility] Financial Care Management Responsibility: None Handoff Communication: [facility] Additional Information: n/a Discharge Information Row Name ED to Hosp-Admission (Current) from 10/12/2024 in HOSP MAIN H080 Shelter Facility Agency [facility] Jennifer Phone# [phone] Other Follow-Up Type Outpatient Dialysis Name [facility] ([address] [place] [address]) Instructions Tues/Thurs/Sat @ 6am. Arrive by 5:40 am SIGNATURE: Kin Casas RN PATIENT NAME: Elia Weston DATE: November 02, 2024 TIME: 3:21 PM NUTRITION Observed: 11/02/2024 2:04 PM Status: COMPLETED Source: [facility] ID: [id number] Author: BHASKAR RAMIREZ DTR Service: Nutrition Therapy Author Type: Java Engineer Type: Nutrition Filed: 11/02/2024 14:04 Note Text: NUTRITION THERAPY AGRICULTURAL SERVICE TECHNICIAN NOTE SERVICE DATE: 11/02/2024 SERVICE TIME: 925 [...] Observed: 11/02/2024 1:53 PM Status: COMPLETED Source: [facility] ID: [id number] Author: ?, ?, ? Service: Nephrology Author Type: ? Type: Progress Notes Filed: 11/02/2024 13:56 Note Text: DIALYSIS PLACEMENT AND ACCEPTANCE CONFIRMATION NOTE Per CM, plan for pt to d/c to [facility] but they do not have any dialysis chairs available onsite. Pt's family to transport to dialysis. [facility] currently full and referral was diverted to [facility]. Facility: [facility] ([address] [place] [address]) Days: //Sat Chair Time: 6:00 AM Time of First Treatment: 11/04/24 - 5:40 AM Accepting Loading Dock Hand: Dr. Sanchez Signature: Bj Rico Patient Name: Elia Weston Date: November 02, 2024 Time: 1:53 PM THERAPY NT Observed: 11/02/2024 12:32 PM Status: COMPLETED Source: [facility] ID: [id number] Author: KIT HAN PTA Service: Physical Therapy Author Type: Associate Director Type: Therapy (PT/OT/Speech/Resp) Filed: 11/02/2024 12:33 Note Text: Attestation signed by Grayson Cross PT at 11/02/2024 2:28 PM I reviewed and agree with the documentation corresponding to this therapy visit. SIGNATURE: Grayson Cross, PT DATE: November 02, 2024 TIME: 2:28 PM Physical Therapy Treatment Summary SERVICE DATE: 11/02/2024 SERVICE TIME: 1143 to 1221 ROOM: [place] [address] PT 6 Clicks Score: 17 DISCHARGE RECOMMENDATIONS [...] Endorses one fall ~1 week ago from [place]. Drives. SUBJECTIVE Pt happy to be leaving today. THERAPY DIAGNOSIS Reduced mobility-other, Muscle Weakness (generalized), Abnormalities of gait and mobility-other TREATMENT INTERVENTIONS Gait Training (44169), Therapeutic Exercise (14017), Therapeutic Activity (22690) Timed Code Treatment (minutes): 38 Skilled Treatment [...] Collected: 11/02/2024 4:56 AM Status: F Source: [facility] Order Comment: Specimen Type : BLOOD SPECIMEN Ordering Facility: [facility] Address: [address] [place] [address] TYPE CODE TESTS RESULT OUT OF RANGE REFERENCE UNITS LAB 5902-2(LOINC) Prothrombin time 29.9 High 9.7-13.0 sec LAB 6301-6(LOINC) INR PPP 3.0 High 0.9-1.3 Result Comment: Vitamin K An tagonist (VKA) Therapeutic Range: INR 2 to 3 (Target INR of 2.5) Note: For patients treated with VKA drugs, such as warfarin, the [place] [employer] 2012 Guideline recommends [...] JACC 2017, 70: 252-289 Performed By: #### 59197-1 # ### [facility] CLIA [id number] [address] [place] [address] [place] RENAL FUNC 2000 PNL SERPL Collected: 4:56 AM Status: F Source: [facility] Order Comment: Specimen Type : BLOOD SPECIMEN Ordering Facility: [facility] Address: [address] [place] [address] TYPE CODE TESTS RESULT OUT OF RANGE REFERENCE UNITS LAB 1751-7(LOINC) Albumin SerPl-mCnc 4.0 3.9-4.9 g/dL LAB 56069-4(LOINC) Calcium SerPl-mCnc 8.8 8.5-10.2 mg/dL LAB 2777-1(LOINC) Phosphate SerPl-mCnc 3.1 2.7-4.8 mg/dL LAB 2345-7(LOINC) Glucose SerPl-mCnc 87 74-99 mg/dL Result Comment: The [place] Diabetes Association (ADA) provides guidance for cutoff [...] Standards of Medical Care in Diabetes 2016, [place] Diabetes Association. Diabetes Care. 2016.39(Suppl 1). LAB 3094-0(LOINC) BUN SerPl-mCnc 16 9-24 mg/ dL LAB 2160-0(LOINC) Creat SerPl-mCnc 6.26 High 0.73-1.22 mg/dL LAB 2951-2(LOINC) Sodium SerPl-sCnc 138 136-144 mmol/L LAB 2823-3(LOINC) Potassium SerPl-sCnc 4.6 3.7-5.1 mmol/L LAB 2075-0(LOINC) Chloride SerPl-sCnc 97 Low 98-107 mmol/L LAB 2028-9(LOINC) CO2 SerPl-sCnc 29 22-30 mmo l/L LAB 74259-4(LOINC) Anion Gap SerPl-sCnc 12 8-15 mmol/L LAB 22785-1(LOINC) Creatinine + eGFR Pnl SerPlBld 11 Low [...] accurately reflect actual GFR. Performed By: #### 47897-1 # ### [facility] CLIA [id number] [address] [place] [address] [place] THERAPY NT Observed: 11/01/2024 4:50 PM Status: COMPLETED Source: [facility] ID: [id number] Author: ARTIE CHI PTA Service: Physical Therapy Author Type: Associate Director Type: Therapy (PT/OT/Speech/Resp) Filed: 11/01/2024 16:51 Note Text: Attestation signed by Grayson Cross PT at 11/01/2024 5:33 PM I reviewed and agree with the documentation corresponding to this therapy visit. SIGNATURE: Grayson Cross PT DATE: November 01, 2024 TIME: 5:33 PM PHYSICAL THERAPY MISSED VISIT SERVICE DATE: 11/01/2024 SERVICE TIME: 1644 ROOM: [place] [address] Patient not seen due to Patient Not Available, eating. SIGNATURE: Artie Chi PTA PATIENT NAME: Elia Weston DATE: November 01, 2024 TIME: 4:51 PM CASE MANAGEM Observed: 11/01/2024 1:52 PM Status: COMPLETED Source: [facility] ID: [id number] Author: KALANI ARROYO MD Service: Care Management Author Type: Physician Type: Care Mgt Progress Note Filed: 11/02/2024 11:07 Note Text: CARE MANAGEMENT PROGRESS NOTE SERVICE DATE: 11/01/2024 SERVICE TIME: 1:52 PM LOS: 20 days Post-Acute Discharge Planning Patient Goal(s): Be able to go home, General wellness, Increase strength [place] of Choice Explained: [place] of Choice Given: Yes Level of Care Discussed: Shelter Facility Discharge Planning Participant(s): Patient Patient/Family Comments: Anticipated # of Days Until Discharge: 1 Transport at Discharge: Transportation Arrangements: Ambulance Transportation Agency and Phone #:: [facility] [phone] Date of Trip: 11/02/24 Time of Trip: 1400 Type of Service: BLS Non-emergency Is Patient Medicaid Pending?: No Was transportation financial coverage discussed with family?: Patient Dive Superintendent Location: [place] Destination: [facility] Financial Care Management Responsibility: None Needs Prior to Discharge: Needs Prior to Discharge: Other: See Comment (outpatient dialysis chair) Post-Acute Discharge Plan: Pt's precert expires tomorrow. Transport scheduled, run# [id number]. Waiting on outpatient dialysis chair. Family to provide transport to dialysis from SNF. SIGNATURE: Kin Casas RN PATIENT NAME: Elia Weston DATE: November 01, 2024 TIME: 1:52 PM I spent 35 minutes of face to face time with patient, with more than 50 % of time counseling and coordination of care. Kalani Arroyo M.D., [facility] Internal Medicine-Hospital Medicine 11:07 AM November 02, 2024 PROGRESS Observed: 11/01/2024 1:42 PM Status: COMPLETED Source: [facility] ID: [id number] Author: KALANI ARROYO MD Service: General Internal Medicine Author Type: Physician Type: Progress Notes Filed: 11/01/2024 13:48 Note Text: DEPARTMENT OF HOSPITAL MEDICINE PROGRESS NOTE SERVICE DATE: 11/01/2024 SERVICE TIME: 1:42 PM Hospital Medicine/Primary Attending: Kalani Arroyo MD NIGHT AND WEEKEND COVERAGE: [facility] COVERAGE: Days: [phone], please page Kalani Arroyo MD Nights: [phone], please page Team GIM 1: G/H 8th floor: 19363; Non 8th floor [address] Subjective INTERVAL HPI: Seen on dialysis I evaluated wounds and gave her a as needed dose of Dilaudid Major notes that the retirement facility is set up pre-CERT has gone [...] mg tab(s) (COUMADIN) 2.5 mg ORAL EVERY YCK-SFP-CBKM-FRI-FRI HYDROmorphone 0.5 mg injection (DILAUDID) 0.5 mg [...] non tender abdomen 1+ pedal edema 5/5 baccarat manager strength Mild pain w/ extending arms R shoulder > L Lines, Drains, and Airways Line Duration Peripheral 10/12/24 0530 [facility] Short Right Forearm 20 Gauge 20 days Dialysis / Apheresis Double Lumen 10/22/24 1932 [facility] Tunneled Right Subclavian 9 days Patient does [...] with VKA drugs, such as warfarin, the [place] College [employer]icians 2012 Guideline recommends [...] IHD via left femoral vein TDC on MWF([facility] ), SVC syndrome as a complication [...] mg tab(s) (COUMADIN) 2.5 mg ORAL EVERY XPE-CVB-KBKM-FRI-FRI Ordered 11/01/24 0915 -- 10/12/24 1111 activity - mobilize patient (nv,ct) VTE Prophylaxis: VTE prophylaxis appropriate Disposition: SNF retirement facility is set up pre-CERT has gone through but were waiting for dialysis placement Plan of care discussed with Provider, RN, Patient I spent 35 minutes of face to face time with patient, with more than 50 % of time counseling and coordination of care. Kalani Arroyo M.D., [facility] Internal Medicine-Hospital Medicine CASE MANAGEM Observed: 11/01/2024 12:38 PM Status: COMPLETED Source: [facility] ID: [id number] Author: ?, ?, ? Service: ? Author Type: ? Type: Care Mgt Progress Note Filed: 11/01/2024 12:39 Note Text: CARE MANAGEMENT PROGRESS NOTE SERVICE DATE: 11/01/2024 SERVICE TIME: 12:39 PM LOS: 20 days Discharge packet completed and dropped off by phlebotomist medical lab assistant Jr Bee. Packet is missing AVS/DC forms, please reach out to case management associate with any discharge related questions. SIGNATURE: Jr Bee PATIENT NAME: Elia Weston DATE: November 01, 2024 TIME: 12:39 PM THERAPY NT Observed: 11/01/2024 10:59 AM Status: COMPLETED Source: [facility] ID: [id number] Author: ARTIE CHI PTA Service: Physical Therapy Author Type: Associate Director Type: Therapy (PT/OT/Speech/Resp) Filed: 11/01/2024 10:59 Note Text: Attestation signed by Grayson Cross, PT at 11/01/2024 12:11 PM I reviewed and agree with the documentation corresponding to this therapy visit. SIGNATURE: Grayson Cross, RUSS DATE: November 01, 2024 TIME: 12:11 PM PHYSICAL THERAPY MISSED VISIT SERVICE DATE: 11/01/2024 SERVICE TIME: 938 ROOM: [place] [address] (Q6-1 Hemodialysis) Patient not seen due to Test / Procedure. SIGNATURE: Artie Chi PTA PATIENT NAME: Elia Weston DATE: November 01, 2024 TIME: 10:59 AM CONSULT PROG Observed: 11/01/2024 10:51 AM Status: COMPLETED Source: [facility] ID: [id number] Author: LUCILLE GOMEZ APRN.CNP Service: Nephrology Author [...] mg tab(s) (COUMADIN) 2.5 mg ORAL EVERY WMC-FDJ-JRBI-FRI-FRI OBJECTIVE PHYSICAL EXAM: BP 119/60 Pulse 65 [...] 1. ESRD Hx First HD: 2005 Unit: [facility] Loading Dock Hand: Dr. Melendez Days: MWF EDW: 114.1 kg Time: 4.5 hrs Access: RIJ TDC placed 10/22/24 this admission SHPT: rocaltrol 1.5mcg TIW, sensipar 60mg daily, PTH 1500 Heparin: 10,000u bolus 2.Electrolytes/acid-base: -Hyperkalemia - control with TECHNICAL SALES ASSOCIATE -Sodium stable -Acid/base - stable 3.Hypertension/Volume Status: [...] 10 ml/min Outpatient dialysis disposition plan: contact [phone] and ask to speak with the help desk consultant as needed for assistance with post-discharge arrangements. Please DO NOT schedule patient for a nephrology follow up appointment. Kidney care will be provided by the primary member of technical staff at their dialysis unit upon hospital discharge. SIGNATURE: Lucille Gomez APRN.CNP PATIENT NAME: Elia Weston DATE: November 01, 2024 TIME: 10:51 AM PAGER: [phone] FOR AFTER HOUR CONCERNS BETWEEN 5PM - 7AM CONTACT ON-CALL NEPHROLOGY FELLOW [phone] Disclosures: Parts of the current progress note may have been copied from a previous note. CASE MANAGEM Observed: 11/01/2024 10:32 AM Status: COMPLETED Source: [facility] ID: [id number] Author: KIN CASAS RN Service: Care Management Author Type: Registered Nurse Type: Care Mgt Progress Note Filed: 11/02/2024 11:52 Note Text: Attestation signed by Kalani Arroyo MD at 11/02/2024 1:24 PM I spent 35 minutes of face to face time with patient, with more than 50 % of time counseling and coordination of care. Kalani Arroyo M.D., [facility] Internal Medicine-[facility] Medicine CARE MANAGEMENT PROGRESS NOTE SERVICE [...] endurance Ischemic ulcer with fat layer exposed ([facility]) Resolved Problems: * No resolved hospital problems. * Attending Physician: Kalani Arroyo MD SIGNATURE: Kin Casas RN PATIENT NAME: Elia Weston DATE: November 01, 2024 TIME: 10:32 AM [facility] Observed: 11/01/2024 10:28 AM Status: COMPLETED Source: [facility] ID: [id number] Author: LOLY GREWAL Art Therapist Service: Art [...] 01, 2024 TIME: 11:33 AM PAGER/CONTACT #: [phone] RENAL FUNC 1999 PNL SERPL Collected: 5:15 AM Status: F Source: [facility] Order Comment: Specimen Type : BLOOD SPECIMEN Ordering Facility: [facility] Address: [address] [place] [address] TYPE CODE TESTS RESULT OUT OF RANGE REFERENCE UNITS LAB 1751-7(LOINC) Albumin SerPl-mCnc 3.7 Low 3.9-4.9 g/dL LAB 97430-9(LOINC) Calcium SerPl-mCnc 8.6 8.5-10.2 mg/dL LAB 2777-1(LOINC) Phosphate SerPl-mCnc 4.1 2.7-4.8 mg/dL LAB 2345-7(LOINC) Glucose SerPl-mCnc 82 74-99 mg/dL Result Comment: The [place] Diabetes Association (ADA) provides guidance for cutoff [...] Standards of Medical Care in Diabetes 2016, [place] Diabetes Association. Diabetes Care. 2016.39(Suppl 1). LAB 3094-0(LOINC) BUN SerPl-mCnc 30 High 9-24 mg/ dL LAB 2160-0(LOINC) Creat SerPl-mCnc 9.79 High 0.73-1.22 mg/dL LAB 2951-2(LOINC) Sodium SerPl-sCnc 137 136-144 mmol/L LAB 2823-3(LOINC) Potassium SerPl-sCnc 5.6 High 3.7-5.1 mmol/L LAB 2075-0(LOINC) Chloride SerPl-sCnc 97 Low 98-107 mmol/L LAB 2028-9(LOINC) CO2 SerPl-sCnc 22 22-30 mmo l/L LAB 44140-0(LOINC) Anion Gap SerPl-sCnc 18 High 8-15 mmol/L LAB 62545-0(LOINC) Creatinine + eGFR Pnl SerPlBld 6 Low [...] accurately reflect actual GFR. Performed By: #### 88289-0 # ### [facility] CLIA [id number] [address] [place] [address] [place] PT PNL PPP Collected: 11/01/2024 5:15 AM Status: F Source: [facility] Order Comment: Specimen Type : BLOOD SPECIMEN Ordering Facility: [facility] Address: [address] [place] [address] TYPE CODE TESTS RESULT OUT OF RANGE REFERENCE UNITS LAB 5902-2(LOINC) Prothrombin time 34.7 High 9.7-13.0 sec LAB 6301-6(LOINC) INR PPP 3.5 High 0.9-1.3 Result Comment: Vitamin K An tagonist (VKA) Therapeutic Range: INR 2 to 3 (Target INR of 2.5) Note: For patients treated with VKA drugs, such as warfarin, the [employer] 2012 Guideline recommends [...] JACC 2017, 70: 252-289 Performed By: #### 31627-0 # ### [facility] IA [id number] [address] [place] [address] [place] PROGRESS Observed: 10/31/2024 3:14 PM Status: COMPLETED Source: [facility] ID: [id number] Author: KALANI ARROYO MD Service: General Internal Medicine Author Type: Physician Type: Progress Notes Filed: 10/31/2024 15:17 Note Text: DEPARTMENT OF HOSPITAL MEDICINE PROGRESS NOTE SERVICE DATE: 10/31/2024 SERVICE TIME: 3:15 PM Hospital Medicine/Primary Attending: Kalani Arroyo MD NIGHT AND WEEKEND COVERAGE: [facility] COVERAGE: Days: [phone], please page Kalani Arroyo MD Nights: [phone], please page Team GIM 1: G/H 8th floor: [address]240; Non 8th floor [address] Subjective INTERVAL HPI: No complaints Spoke w/ [...] non tender abdomen 1+ pedal edema 5/5 baccarat manager strength Mild pain w/ extending arms R shoulder > L Lines, Drains, and Airways Line Duration Peripheral 10/12/24 0530 [facility] Short Right Forearm 20 Gauge 19 days Dialysis / Apheresis Double Lumen 10/22/24 1932 [facility] Tunneled Right Subclavian 8 days Patient does [...] with VKA drugs, such as warfarin, the [employer] 2012 Guideline recommends [...] Chest 2012, 141:7S-47S Kevin RA, et al. [facility] 2017, 70: 252-289 Recent Labs 10/30/24 0900 [...] IHD via left femoral vein TDC on F([facility] ), SVC syndrome as a complication of [...] -- 10/12/24 1111 activity - mobilize patient (nv,ct) VTE Prophylaxis: VTE prophylaxis appropriate Disposition: SNF Plan of care discussed with Provider, RN, Patient I spent 35 minutes of face to face time with patient, with more than 50 % of time counseling and coordination of care. Kalani Arroyo M.D., [facility] Medicine PTT, ANTICOAGULANT THERAPY Collected: 0 10/31/2024 7:49 AM Status: F Source: [facility] Order Comment: Specimen Type : BLOOD SPECIMEN Ordering Facility: [facility] Address: [address] [place] [address] TYPE CODE TESTS RESULT OUT OF RANGE REFERENCE UNITS LAB 89467-6(LOINC) aPTT PPP 88.7 High 23.0-32.4 sec Performed By: #### PTTAC ### # [facility] CLIA [id number] [address] [place] [address] [place] RENAL FUNC 2000 PNL SERPL Collected: 3:55 AM Status: F Source: [facility] Order Comment: Specimen Type : BLOOD SPECIMEN Ordering Facility: [facility] Address: [address] [place] [address] TYPE CODE TESTS RESULT OUT OF RANGE REFERENCE UNITS LAB 1751-7(LOINC) Albumin SerPl-mCnc 3.7 Low 3.9-4.9 g/dL LAB 52066-6(LOINC) Calcium SerPl-mCnc 8.3 Low 8.5-10.2 mg/dL LAB 2777-1(LOINC) Phosphate SerPl-mCnc 3.8 2.7-4.8 mg/dL LAB 2345-7(LOINC) Glucose SerPl-mCnc 84 74-99 mg/dL Result Comment: The [place] Diabetes Association (ADA) provides guidance for cutoff [...] Standards of Medical Care in Diabetes 2016, [place] Diabetes Association. Diabetes Care. 2016.39(Suppl 1). LAB 3094-0(LOINC) BUN SerPl-mCnc 22 9-24 mg/ dL LAB 2160-0(LOINC) Creat SerPl-mCnc 7.81 High 0.73-1.22 mg/dL LAB 2951-2(LOINC) Sodium SerPl-sCnc 138 136-144 mmol/L LAB 2823-3(LOINC) Potassium SerPl-sCnc 4.4 3.7-5.1 mmol/L LAB 2075-0(LOINC) Chloride SerPl-sCnc 97 Low 98-107 mmol/L LAB 2027-9(LOINC) CO2 SerPl-sCnc 26 22-30 mmo l/L LAB 41546-6(LOINC) Anion Gap SerPl-sCnc 15 8-15 mmol/L LAB 69825-0(LOINC) Creatinine + eGFR Pnl SerPlBld 8 Low [...] accurately reflect actual GFR. Performed By: #### 56216-8 # ### [facility] CLIA [id number] [address] [place] [address] STATES OF [facility] PT PNL PPP Collected: 10/31/2024 3:55 AM Status: F Source: [facility] Order Comment: Specimen Type : BLOOD SPECIMEN Ordering Facility: [facility] Address: [address] [place] [address] TYPE CODE TESTS RESULT OUT OF RANGE REFERENCE UNITS LAB 5902-2(LOINC) Prothrombin time 27.8 High 9.7-13.0 sec LAB 6301-6(LOINC) INR PPP 2.8 High 0.9-1.3 Result Comment: Vitamin K An tagonist (VKA) Therapeutic Range: INR 2 to 3 (Target INR of 2.5) Note: For patients treated with VKA drugs, such as warfarin, the [place] College of Chest Physicians 2012 Guideline recommends [...] Chest 2012, 141:7S-47S Kevin RA, et al. [facility] 2017, 70: 252-289 Performed By: #### 23302-5, PTTAC #### [facility] CLIA [id number] [address] [place] [address] [place] PTT, ANTICOAGULANT THERAPY Collected: 0 10/31/2024 3:55 AM Status: F Source: [facility] Order Comment: Specimen Type : BLOOD SPECIMEN Ordering Facility: [facility] Address: [address] [place] [address] TYPE CODE TESTS RESULT OUT OF RANGE REFERENCE UNITS LAB 51631-7([facility]) aPTT PPP 93.4 High 23.0-32.4 sec Performed By: #### 87628-6, PTTAC #### [facility] CLIA [id number] [address] [place] [address] [place] CBC PNL BLD AUTO Collected: 3:55 AM Status: F Source: [facility] Order Comment: Specimen Type : BLOOD SPECIMEN Ordering Facility: [facility] Address: [address] [place] [address] TYPE CODE TESTS RESULT OUT OF RANGE [...] RBC Auto-mCnc 29.5 Low 30.5-36.0 g/dL LAB 72740-7(LOINC) RDW RBC-Rto 18.9 High 11.5-15.0 % LAB 777-3([facility]) Platelet # Bld Auto 146 Low 150-400 k/uL LAB 84307-3([facility]) PMV Bld Auto 11.3 9.0-12.7 fL LAB 771-6([facility]) nRBC # Bld Auto <0.01 <0.01 k/uL Performed By: #### 32919-1 # ### [facility] CLIA [id number] [address] [place] [address] OF [facility] PROGRESS Observed: 10/30/2024 5:49 PM Status: COMPLETED Source: [facility] HNO ID: [id number] Author: KALANI ARROYO MD Service: General Internal Medicine Author Type: Physician Type: Progress Notes Filed: 10/30/2024 17:54 Note Text: DEPARTMENT OF HOSPITAL MEDICINE PROGRESS NOTE SERVICE DATE: 10/30/2024 SERVICE TIME: 5:49 PM Hospital Medicine/Primary Attending: Kalani Arroyo MD NIGHT AND WEEKEND COVERAGE: [facility] COVERAGE: Days: [phone], please page [facility] for patient issues. Nights: [phone], please page Team GIM 1: G/H 8th floor: [address]; Non 8th floor [address] Subjective INTERVAL HPI: Nurse said he was [...] non tender abdomen 1+ pedal edema 5/5 baccarat manager strength Mild pain w/ extending arms R shoulder > L Lines, Drains, and Airways Line Duration Peripheral 10/12/24 0530 [facility] Short Right Forearm 20 Gauge 18 days Dialysis / Apheresis Double Lumen 10/22/24 1932 [facility] Tunneled Right Subclavian 7 days Patient does [...] IHD via left femoral vein TDC on [facility] [place] ), SVC syndrome as a complication of [...] on hemodialysis via RIGHT chest TDC on [facility] Hyperkalemia - Nephrology following and optimizing HD - [facility] + optimize bowel regimen. - Renal diet [...] -- 10/12/24 1111 activity - mobilize patient (nv,ct) VTE Prophylaxis: VTE prophylaxis appropriate Disposition: SNF Plan of care discussed with Provider, RN, Patient I spent 35 minutes of face to face time with patient, with more than 50 % of time counseling and coordination of care. Kalani Arroyo M.D., [facility] Medicine RENAL FUNC 1999 PNL SERPL Collected: 5:53 AM Status: F Source: [facility] Order Comment: Specimen Type : BLOOD SPECIMEN Ordering Facility: [facility] Address: [address] [place] [address] TYPE CODE TESTS RESULT OUT OF RANGE REFERENCE UNITS LAB 1751-7(LOINC) Albumin SerPl-mCnc 3.9 3.9-4.9 g/dL LAB 81067-7(LOINC) Calcium SerPl-mCnc 8.8 8.5-10.2 mg/dL LAB 2777-1(LOINC) Phosphate SerPl-mCnc 3.1 2.7-4.8 mg/dL LAB 2345-7(LOINC) Glucose SerPl-mCnc 92 74-99 mg/dL Result Comment: The [place] Diabetes Association (ADA) provides guidance for cutoff [...] Standards of Medical Care in Diabetes 2016, [place] Diabetes Association. Diabetes Care. 2016.39(Suppl 1). LAB 3094-0(LOINC) BUN SerPl-mCnc 15 9-24 mg/ dL LAB 2160-0(LOINC) Creat SerPl-mCnc 5.79 High 0.73-1.22 mg/dL LAB 2951-2(LOINC) Sodium SerPl-sCnc 136 136-144 mmol/L LAB 2823-3(LOINC) Potassium SerPl-sCnc 4.4 3.7-5.1 mmol/L LAB 2075-0(LOINC) Chloride SerPl-sCnc 95 Low 98-107 mmol/L LAB 2027-9(LOINC) CO2 SerPl-sCnc 27 22-30 mmo l/L LAB 46792-4(LOINC) Anion Gap SerPl-sCnc 14 8-15 mmol/L LAB 03281-7(LOINC) Creatinine + eGFR Pnl SerPlBld 12 Low [...] accurately reflect actual GFR. Performed By: #### 51461-5 # ### [facility] CLIA [id number] [address] [place] [address] [place] CBC PNL BLD AUTO Collected: 5 5:53 AM Status: F Source: [facility] Order Comment: Specimen Type : BLOOD SPECIMEN Ordering Facility: [facility] Address: [address] [place] [address] TYPE CODE TESTS RESULT OUT OF RANGE [...] RBC Auto-mCnc 28.9 Low 30.5-36.0 g/dL LAB 60520-8(LOINC) RDW RBC-Rto 18.7 High 11.5-15.0 % LAB 777-3(LOINC) Platelet # Bld Auto 145 Low 150-400 k/uL LAB 77193-3(LOINC) PMV Bld Auto 11.3 9.0-12.7 fL LAB 771-6(LOINC) nRBC # Bld Auto <0.01 <0.01 k/uL Performed By: #### 07795-3 # ### [facility] CLIA [id number] [address] [place] [address] PT PNL PPP Collected: 10/30/2024 5:53 AM Status: F Source: [facility] Order Comment: Specimen Type : BLOOD SPECIMEN Ordering Facility: [facility] Address: [address] [place] [address] TYPE CODE TESTS RESULT OUT OF RANGE REFERENCE UNITS LAB 5902-2(INC) Prothrombin time 23.9 High 9.7-13.0 sec LAB 6301-6(INC) INR PPP 2.3 High 0.9-1.3 Result Comment: Vitamin K An tagonist (VKA) Therapeutic Range: INR 2 to 3 (Target INR of 2.5) Note: For patients treated with VKA drugs, such as warfarin, the [place] College of Chest Physicians 2012 Guideline recommends [...] Performed By: #### PTTAC, 34 528-0 #### [facility] CLIA [id number] [address] [place] [address] OF [place] PTT, ANTICOAGULANT THERAPY Collected: 0 10/30/2024 5:53 AM Status: F Source: [facility] Order Comment: Specimen Type : BLOOD SPECIMEN Ordering Facility: [facility] Address: [address] [place] [address] TYPE CODE TESTS RESULT OUT OF RANGE REFERENCE UNITS LAB 93525-1(LOINC) aPTT PPP 74.5 High 23.0-32.4 sec Performed By: #### PTTAC, 34 528-0 #### [facility] CLIA [id number] [address] [place] [address] OF [place] THERAPY NT Observed: 10/29/2024 4:41 PM Status: COMPLETED Source: [facility] HNO ID: [id number] Author: ARTIE CHI PTA Service: Physical Therapy Author Type: Associate Director Type: Therapy (PT/OT/Speech/Resp) Filed: 10/29/2024 16:42 Note Text: Attestation signed by Grayson Cross, PT at 10/29/2024 5:34 PM I reviewed and agree with the documentation corresponding to this therapy visit. SIGNATURE: Grayson Cross, PT DATE: October 29, 2024 TIME: 5:34 PM Physical Therapy Treatment Summary SERVICE DATE: 10/29/2024 SERVICE TIME: 1609 to 1635 ROOM: [place] [address] (Q6 - DIALYSIS) PT 6 Clicks Score: [...] Unsteadiness on feet TREATMENT INTERVENTIONS Gait Training (26918), Therapeutic Activity (54873) Timed Code Treatment (minutes): 26 Skilled Treatment [...] Observed: 10/29/2024 3:04 PM Status: COMPLETED Source: [facility] HNO ID: [id number] Author: CHRISTIANA SHAH ? Service: Care Management Author Type: ? Type: Care Mgt Progress Note Filed: 10/29/2024 15:05 Note Text: [facility] PRECERT NOTE [employer] HMO approved Shelter Facility for LUIS MANUEL RUBIO. Precert approved through 11/02. For any additional questions regarding approvals, transport or care management needs, please contact the CM assigned to this patient in the Treatment Team. SIGNATURE: Christiana Shah DATE: October 29, 2024 TIME: 3:04 PM PROGRESS Observed: 10/29/2024 2:29 PM Status: COMPLETED Source: [facility] HNO ID: [id number] Author: LUIS CUI MD Service: General Internal Medicine Author Type: Physician Type: Progress Notes Filed: 10/29/2024 14:32 Note Text: DEPARTMENT OF HOSPITAL MEDICINE PROGRESS NOTE SERVICE DATE: 10/29/2024 SERVICE TIME: 2:30 PM Hospital Medicine/Primary Attending: Luis Cui MD NIGHT AND WEEKEND COVERAGE: [facility] COVERAGE: Days: [phone], please page Luis Cui for patient issues. Nights: [phone], please page Team GIM 1: G/H 8th floor: [address]; Non 8th floor [address] Subjective INTERVAL HPI: No acute events overnight [...] and Airways Line Duration Peripheral 10/12/24 0530 [facility] Short Right Forearm 20 Gauge 17 days Dialysis / Apheresis Double Lumen 10/22/24 1932 [facility] Tunneled Right Subclavian 6 days Patient does [...] IHD via left femoral vein TDC on MWF([facility] ), SVC syndrome as a complication [...] (deep vein thrombosis) PAF (paroxysmal atrial fibrillation) ([facility]) History of stroke Hypotension, chronic Anemia due [...] -- 10/12/24 1111 activity - mobilize patient (nv,oh) VTE Prophylaxis: VTE prophylaxis appropriate Disposition: SNF Plan of care discussed with Provider, RN, Patient Plan communicated to: Patient prefers to communicate with family. Luis Cui MD Associate Staff [facility] [address] [place] [address] Pager [phone] CASE MANAGEM Observed: 10/29/2024 10:54 AM Status: COMPLETED Source: [facility] HNO ID: [id number] Author: KIN CASAS RN Service: Care Management Author Type: Registered Nurse Type: Care Mgt Progress Note Filed: 10/29/2024 15:43 Note Text: CARE MANAGEMENT PROGRESS NOTE SERVICE DATE: 10/29/2024 SERVICE TIME: 10:54 AM LOS: 17 days Post-Acute Discharge Planning Patient Goal(s): Be able to go home, General wellness, Increase strength [place] Explained: [place] Given: Yes Level of Care Discussed: Shelter Facility Discharge Planning Participant(s): Patient Patient/Family Comments: [...] WEEKEND DC ANTICIPATED Please contact weekend case management associate, listed in the Treatment Team, for any immediate discharge planning needs. SIGNATURE: Kin Casas RN PATIENT NAME: Elia Weston DATE: October 29, 2024 TIME: 10:54 AM CONSULT PROG Observed: 10/29/2024 10:44 AM Status: COMPLETED Source: [facility] HNO ID: [id number] Author: CAMILO NORTON PA-C Service: Nephrology Author Type: Physician Mannequin Mold Maker Type: Consult Progress Note Filed: 10/29/2024 10:46 Note Text: Department of Kidney Medicine Medical Specialties [place] [facility] NEPHROLOGY CONSULT SERVICE PROGRESS NOTE INTERVAL [...] and Airways Line Duration Peripheral 10/12/24 0530 [facility] Short Right Forearm 20 Gauge 17 days Dialysis / Apheresis Double Lumen 10/22/24 1932 [facility] Tunneled Right Subclavian 6 days Labs: Recent [...] 1. ESRD Hx First HD: 2005 Unit: [facility] Loading Dock Hand: Dr. Melendez Days: EDW: 114.1 kg Time: [...] Mg- or Phos- containing enemas Consent for TECHNICAL SALES ASSOCIATE: ESRD Camilo Norton PA-C Department of Kidney Medicine [facility] October 29, 2024 10:44 AM PAGER # [phone] Disclosures: Parts of the current progress note may have been copied from a previous note. FOR AFTER HOUR CONCERNS BETWEEN 5PM - 7AM CONTACT ON-CALL NEPHROLOGY FELLOW [phone] CBC PNL BLD AUTO Collected: 9:43 AM Status: F Source: [facility] Order Comment: Specimen Type : BLOOD SPECIMEN Ordering Facility: [facility] Address: [address] [place] [address] TYPE CODE TESTS RESULT OUT OF RANGE [...] RBC Auto-mCnc 29.6 Low 30.5-36.0 g/dL LAB 20230-4(LOINC) RDW RBC-Rto 18.7 High 11.5-15.0 % LAB 777-3(LOINC) Platelet # Bld Auto 143 Low 150-400 k/uL LAB 27456-4(LOINC) PMV Bld Auto 11.6 9.0-12.7 fL LAB 771-6(LOINC) nRBC # Bld Auto <0.01 <0.01 k/uL Performed By: #### 60603-4 # ### [facility] CLIA [id number] [address] [place] [place] [address] [place] RENAL FUNC 2000 PNL SERPL Collected: 9:43 AM Status: F Source: [facility] Order Comment: Specimen Type : BLOOD SPECIMEN Ordering Facility: [facility] Address: [address] [place] [address] TYPE CODE TESTS RESULT OUT OF RANGE REFERENCE UNITS LAB 1751-7(LOINC) Albumin SerPl-mCnc 3.9 3.9-4.9 g/dL LAB 88195-8(LOINC) Calcium SerPl-mCnc 8.0 Low 8.5-10.2 mg/dL LAB 2777-1(LOINC) Phosphate SerPl-mCnc 4.3 2.7-4.8 mg/dL LAB 2345-7(LOINC) Glucose SerPl-mCnc 85 74-99 mg/dL Result Comment: The [place] Diabetes Association (ADA) provides guidance for cutoff [...] Standards of Medical Care in Diabetes 2016, [place] Diabetes Association. Diabetes Care. 2016.39(Suppl 1). LAB 3094-0(LOINC) BUN SerPl-mCnc 25 High 9-24 mg/ dL LAB 2160-0(LOINC) Creat SerPl-mCnc 8.43 High 0.73-1.22 mg/dL LAB 2951-2(LOINC) Sodium SerPl-sCnc 141 136-144 mmol/L LAB 2823-3(LOINC) Potassium SerPl-sCnc 4.4 3.7-5.1 mmol/L LAB 2075-0(LOINC) Chloride SerPl-sCnc 92 Low 98-107 mmol/L LAB 2028-05(LOINC) CO2 SerPl-sCnc 27 22-30 mmo l/L LAB 53368-0(LOINC) Anion Gap SerPl-sCnc 22 High 8-15 mmol/L LAB 47758-8(LOINC) Creatinine + eGFR Pnl SerPlBld 7 Low [...] accurately reflect actual GFR. Performed By: #### 06527-0 # ### [facility] CLIA [id number] [address] [place] [address] PT PNL PPP Collected: 10/29/2024 9:43 AM Status: F Source: [facility] Order Comment: Specimen Type : BLOOD SPECIMEN Ordering Facility: [facility] Address: [address] [place] [address] TYPE CODE TESTS RESULT OUT OF RANGE REFERENCE UNITS LAB 5902-2(LOINC) Prothrombin time 22.7 High 9.7-13.0 sec LAB 6301-6(LOINC) INR PPP 2.2 High 0.9-1.3 Result Comment: Vitamin K An tagonist (VKA) Therapeutic Range: INR 2 to 3 (Target INR of 2.5) Note: For patients treated with VKA drugs, such as warfarin, the [place] College of Chest Physicians 2012 Guideline recommends [...] Chest 2012, 141:7S-47S Kevin RA, et al. [facility] 2017, 70: 252-289 Performed By: #### 92423-8, PTTAC #### [facility] CLIA [id number] [address] [place], [place] [address] [place] PTT, ANTICOAGULANT THERAPY Collected: 0 10/29/2024 9:43 AM Status: F Source: [facility] Order Comment: Specimen Type : BLOOD SPECIMEN Ordering Facility: [facility] Address: [address] [place] [address] TYPE CODE TESTS RESULT OUT OF RANGE REFERENCE UNITS LAB 59703-8(LOINC) aPTT PPP 75.2 High 23.0-32.4 sec Performed By: #### 20964-2, PTTAC #### [facility] CLIA [id number] [address] [place], [place] [address] [place] PROGRESS Observed: 10/29/2024 8:06 AM Status: COMPLETED Source: [facility] HNO ID: [id number] Author: ?, ?, ? Service: Nephrology Author Type: ? Type: Progress Notes Filed: 10/29/2024 08:08 Note Text: DIALYSIS PLACEMENT NOTE Per CM, plan for pt to d/c to [facility] but they do not have any dialysis chairs available onsite. Pt's family to transport to dialysis. [facility] AND sent dialysis records. Please allow 48 hours minimum for medical AND financial clearance [facility]. Facility: [facility] ([address] [place] [address]) Signature: Bj Rico Patient Name: Elia Weston Date: October 29, 2024 Time: 8:06 AM APTT PPP Collected: 11:02 PM Status: F Source: [facility] Order Comment: Specimen Type : BLOOD SPECIMEN Ordering Facility: [facility] Address: [address] [place] [address] TYPE CODE TESTS RESULT OUT OF RANGE REFERENCE UNITS LAB 10586-2(LOINC) aPTT PPP 67.4 High 23.0-32.4 sec Performed By: #### 47975-2 # ### [facility] CLIA [id number] [address] [place] [address] OF [place] PTT, ANTICOAGULANT THERAPY Collected: 0 10/28/2024 5:15 PM Status: F Source: [facility] Order Comment: Specimen Type : BLOOD SPECIMEN Ordering Facility: [facility] Address: [address] [place] [address] TYPE CODE TESTS RESULT OUT OF RANGE REFERENCE UNITS LAB 59736-2(LOINC) aPTT PPP 70.6 High 23.0-32.4 sec Performed By: #### PTTAC ### # [facility] CLIA [id number] [address] [place] [address] STATES OF [place] THERAPY NT Observed: 10/28/2024 3:05 PM Status: COMPLETED Source: [facility] HNO ID: [id number] Author: ARTIE CHI PTA Service: Physical Therapy Author Type: Associate Director Type: Therapy (PT/OT/Speech/Resp) Filed: 10/28/2024 15:06 Note Text: Attestation signed by Grayson Cross PT at 10/29/2024 8:18 AM I reviewed and agree with the documentation corresponding to this therapy visit. SIGNATURE: Grayson Cross, PT DATE: October 29, 2024 TIME: 8:18 AM Physical Therapy Treatment Summary SERVICE DATE: 10/28/2024 SERVICE TIME: 1429 to 1452 ROOM: [place] [address] PT 6 Clicks Score: 17 DISCHARGE RECOMMENDATIONS [...] Endorses one fall ~1 week ago from [facility]. SUBJECTIVE THERAPY DIAGNOSIS Reduced mobility-other, Muscle Weakness (generalized), Abnormalities of gait and mobility-other, Unsteadiness on feet TREATMENT INTERVENTIONS Gait Training (32681), Therapeutic Activity (32688) Timed Code Treatment (minutes): 23 Skilled Treatment [...] Observed: 10/28/2024 3:00 PM Status: COMPLETED Source: [facility] ID: [id number] Author: KIN CASAS RN Service: Care Management Author Type: Registered Nurse Type: Care Mgt Progress Note Filed: 10/28/2024 16:07 Note Text: CARE MANAGEMENT PROGRESS NOTE SERVICE DATE: 10/28/2024 SERVICE TIME: 3:00 PM LOS: 16 days Post-Acute Discharge Planning Patient Goal(s): General wellness, Increase strength, Be able to go home [place] Explained: [place] Choice Given: Yes Level of Care Discussed: Shelter Facility Discharge Planning Participant(s): Patient Patient/Family Comments: Anticipated # of Days Until Discharge: 4 Transport at Discharge: Transportation Arrangements: To Be Determined Needs Prior to Discharge: Needs Prior to Discharge: Accepting Facility, Precertification, Discharge Transportation Post-Acute Discharge Plan: Pt's FOC is [facility]. He has family in the area that [...] in the area. He was active at [facility] in [place] prior to admission. Waiting for reply from [facility], dialysis coordinator contacted. Pt has alternate SNFs accepting if his FOC is unable to accept. ADDENDUM 4:[address] [facility] can accept pt provided family can also provide his Sensipar, Renvela, and Velphoro from an outpatient pharmacy. They would also prefer he receive dialysis at [facility]. SIGNATURE: Kin Casas RN PATIENT NAME: Elia Weston DATE: October 28, 2024 TIME: 3:00 PM PROGRESS Observed: 10/28/2024 2:22 PM Status: [id number] Author: LUIS CUI MD Service: General Internal Medicine Author Type: Physician Type: Progress Notes Filed: 10/28/2024 14:29 Note Text: DEPARTMENT OF HOSPITAL MEDICINE PROGRESS NOTE SERVICE DATE: 10/28/2024 SERVICE TIME: 2:22 PM Hospital Medicine/Primary Attending: Luis Cui MD NIGHT AND WEEKEND COVERAGE: [facility] COVER[employer]: Days: [phone], please page Luis Cui for patient issues. Nights: [phone], please page Team GIM 1: G/H 8th floor: [address]70; Non 8th floor [address] Subjective INTERVAL HPI: No acute events overnight [...] and Airways Line Duration Peripheral 01/14/25 0530 [facility] Short Right Forearm 20 Gauge 16 days Dialysis / Apheresis Double Lumen 10/22/24 1932 [facility] Tunneled Right Subclavian 5 days Patient does [...] IHD via left femoral vein TDC on MWF([facility] [place] ), SVC syndrome as a complication of [...] ESRD (end stage renal disease) on dialysis ([facility]) HTN (hypertension) YEIMY (obstructive sleep apnea) 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 Personal history of DVT (deep vein thrombosis) PAF (paroxysmal atrial fibrillation) ([facility]) History of stroke Hypotension, chronic Anemia due to stage 5 chronic kidney disease, not on chronic dialysis ([facility]) ([facility]) Status post Maze operation for atrial fibrillation Skin ulcer, limited to breakdown of skin ([facility]) SVC syndrome Generalized weakness Impaired functional mobility, balance, gait, and endurance Secondary hyperparathyroidism, renal ([facility]) Ischemic ulcer with fat layer exposed ([facility] [facility]) SVC syndrome-multiple right and left IJ catheters [...] on hemodialysis via RIGHT chest TDC on [facility] Hyperkalemia - Nephrology following and optimizing [...] -- 10/12/24 1111 activity - mobilize patient ([place], [place]) VTE Prophylaxis: VTE prophylaxis appropriate Disposition: SNF Plan of care discussed with Provider, RN, Patient Plan communicated to: Patient prefers to communicate with family. Luis Cui MD Associate Staff [address] [address] Pager [phone] PTT, ANTICOAGULANT THERAPY Collected: 0 10/28/2024 10:23 AM Status: F Source: [facility] Order Comment: Specimen Type : BLOOD SPECIMEN Ordering Facility: [facility] Address: [address] [place] [address] TYPE CODE TESTS RESULT OUT OF RANGE REFERENCE UNITS LAB 92877-7(LOINC) aPTT PPP 94.4 High 23.0-32.4 sec Performed By: #### PTTAC ### # [facility] CLIA [id number] [address] [place] [address] [place] RENAL FUNC 2000 PNL SERPL Collected: 8:30 AM Status: F Source: [facility] Order Comment: Specimen Type : BLOOD SPECIMEN Ordering Facility: [facility] Address: [address] [place] [address] TYPE CODE TESTS RESULT OUT OF RANGE REFERENCE UNITS LAB 1751-7(LOINC) Albumin SerPl-mCnc 3.8 Low 3.9-4.9 g/dL LAB 57753-4(LOINC) Calcium SerPl-mCnc 8.6 8.5-10.2 mg/dL LAB 2777-1(LOINC) Phosphate SerPl-mCnc 3.6 2.7-4.8 mg/dL LAB 2345-7(LOINC) Glucose SerPl-mCnc 80 74-99 mg/dL Result Comment: The [place] Diabetes Association (ADA) provides guidance for cutoff [...] Standards of Medical Care in Diabetes 2016, [place] Diabetes Association. Diabetes Care. 2016.39(Suppl 1). LAB 3094-0(LOINC) BUN SerPl-mCnc 17 9-24 mg/ dL LAB 2160-0(LOINC) Creat SerPl-mCnc 6.18 High 0.73-1.22 mg/dL LAB 2951-2(LOINC) Sodium SerPl-sCnc 135 Low 136-144 mmol/L LAB 2823-3(LOINC) Potassium SerPl-sCnc 4.3 3.7-5.1 mmol/L LAB 2075-0(LOINC) Chloride SerPl-sCnc 93 Low 98-107 mmol/L LAB 2027-9(LOINC) CO2 SerPl-sCnc 29 22-30 mmo l/L LAB 90915-1(LOINC) Anion Gap SerPl-sCnc 13 8-15 mmol/L LAB 07364-4(LOINC) Creatinine + eGFR Pnl SerPlBld 11 Low [...] accurately reflect actual GFR. Performed By: #### 95137-2 # ### [facility] CLIA [id number] [address] [place] [address] PT PNL PPP Collected: 10/28/2024 8:30 AM Status: F Source: [facility] Order Comment: Specimen Type : BLOOD SPECIMEN Ordering Facility: [facility] Address: [address] [place] [address] TYPE CODE TESTS RESULT OUT OF RANGE REFERENCE UNITS LAB 5902-2(LOINC) Prothrombin time 20.8 High 9.7-13.0 sec LAB 6301-6(LOINC) INR PPP 2.0 High 0.9-1.3 Result Comment: Vitamin K An tagonist (VKA) Therapeutic Range: INR 2 to 3 (Target INR of 2.5) Note: For patients treated with VKA drugs, such as warfarin, the [place] College of Chest Physicians 2012 Guideline recommends [...] Chest 2012, 141:7S-47S Kevin RA, et al. [facility] 2017, 70: 252-289 Performed By: #### 68076-2 # ### [facility] CLIA [id number] [address] [place] [address] [place] CBC PNL BLD AUTO Collected: 8:30 AM Status: F Source: [facility] Order Comment: Specimen Type : BLOOD SPECIMEN Ordering Facility: [facility] Address: [address] [place] [address] TYPE CODE TESTS RESULT OUT OF RANGE [...] RBC Auto-mCnc 29.2 Low 30.5-36.0 g/dL LAB 57908-9(LOINC) RDW RBC-Rto 19.0 High 11.5-15.0 % LAB 777-3(LOINC) Platelet # Bld Auto 144 Low 150-400 k/uL LAB 31721-8(LOINC) PMV Bld Auto 11.4 9.0-12.7 fL LAB 771-6(LOINC) nRBC # Bld Auto <0.01 <0.01 k/uL Performed By: #### 86828-0 # ### [facility] CLIA [id number] [address] [place] [address] [place] CONSULT Observed: 10/28/2024 6:09 AM Status: COMPLETED Source: [facility] HNO ID: [id number] Author: LISSY KUMARI, HORSE BREEDER.GERIATRIC PHYSICIAN Service: Wound Care Team Author Type: Clinical [...] if further needs arise. Lissy Kumari, MSN, HORSE BREEDER, ACNS-BC, CWOCN [phone] CONSULT PROG Observed: 10/27/2024 2:54 PM Status: COMPLETED Source: [facility] HNO ID: [id number] Author: CAMILO NORTON PA-C Service: Nephrology Author Type: Physician Mannequin Mold Maker Type: Consult Progress Note Filed: 10/27/2024 15:01 Note Text: Department of Kidney Medicine Medical Specialties [place] [facility] NEPHROLOGY CONSULT SERVICE PROGRESS NOTE INTERVAL HISTORY: - seen on IHD orders in [facility] reviewed - UF ~3L tolerating well - [...] and Airways Line Duration Peripheral 10/12/24 0530 [facility] Short Right Forearm 20 Gauge 15 days Dialysis / Apheresis Double Lumen 10/22/24 1932 [facility] Tunneled Right Subclavian 4 days Labs: Recent [...] 1. ESRD Hx First HD: 2005 Unit: [facility] Loading Dock Hand: Dr. Melendez Days: EDW: 114.1 kg Time: [...] Mg- or Phos- containing enemas Consent for TECHNICAL SALES ASSOCIATE: ESRD Camilo Norton PA-C Department of Kidney Medicine [facility] October 27, 2024 2:54 PM PAGER # [phone] Disclosures: Parts of the current progress note may have been copied from a previous note. FOR AFTER HOUR CONCERNS BETWEEN 5PM - 7AM CONTACT ON-CALL NEPHROLOGY FELLOW [phone] PROGRESS Observed: 10/27/2024 12:01 PM Status: COMPLETED Source: [facility] HNO ID: [id number] Author: LUIS CUI MD Service: General Internal Medicine Author Type: Physician Type: Progress Notes Filed: 10/27/2024 12:03 Note Text: DEPARTMENT OF HOSPITAL MEDICINE PROGRESS NOTE SERVICE DATE: 10/27/2024 SERVICE TIME: 12:01 PM Hospital Medicine/Primary Attending: Luis Cui MD NIGHT AND WEEKEND COVERAGE: [facility] COVERAGE: Days: [phone], please page Luis Cui for patient issues. Nights: [phone], please page Team GIM 1: G/H 8th floor: [address]; Non 8th floor [address] Subjective INTERVAL HPI: No acute events overnight [...] and Airways Line Duration Peripheral 10/12/24 0530 [facility] Short Right Forearm 20 Gauge 15 days Dialysis / Apheresis Double Lumen 10/22/24 1932 [facility] Tunneled Right Subclavian 4 days Patient does [...] IHD via left femoral vein TDC on MWF([facility] ), SVC syndrome as a complication of [...] (deep vein thrombosis) PAF (paroxysmal atrial fibrillation) ([facility]) History of stroke Hypotension, chronic Anemia due [...] - Nephrology following and optimizing HD - Samsd + optimize bowel regimen. - Renal diet [...] -- 10/12/24 1111 activity - mobilize patient (nv,ct) VTE Prophylaxis: VTE prophylaxis appropriate Disposition: SNF Plan of care discussed with Provider, RN, Patient Plan communicated to: Patient prefers to communicate with family. Luis Cui MD Associate Staff [facility] [address] [place] [address] Pager [phone] ALLIED HEALTH Observed: 10/27/2024 10:13 AM Status: COMPLETED Source: [facility] HNO ID: [id number] Author: LOLY GREWAL Art Therapist Service: Art [...] 27, 2024 TIME: 11:00 AM PAGER/CONTACT #: [phone] THERAPY NT Observed: 10/27/2024 8:54 AM Status: COMPLETED Source: [facility] HNO ID: [id number] Author: ARTIE CHI PTA Service: Physical Therapy Author Type: Associate Director Type: Therapy (PT/OT/Speech/Resp) Filed: 10/27/2024 08:54 Note Text: Attestation signed by Grayson Cross PT at 10/29/2024 8:18 AM I reviewed and agree with the documentation corresponding to this therapy visit. SIGNATURE: Grayson Cross, PT DATE: October 29, 2024 TIME: 8:17 AM PHYSICAL THERAPY MISSED VISIT SERVICE DATE: 10/27/2024 SERVICE TIME: 851 ROOM: [place] [address] (Q6-1 Hemodialysis) Patient not seen due to Test / Procedure. SIGNATURE: Artie Chi PTA PATIENT NAME: Elia Weston DATE: October 27, 2024 TIME: 8:54 AM PT PNL PPP Collected: 10/27/2024 4:22 AM Status: F Source: [facility] Order Comment: Specimen Type : BLOOD SPECIMEN Ordering Facility: [facility] Address: [address] [place] [address] TYPE CODE TESTS RESULT OUT OF RANGE REFERENCE UNITS LAB 5902-2(LOINC) Prothrombin time 17.7 High 9.7-13.0 sec LAB 6301-6(LOINC) INR PPP 1.7 High 0.9-1.3 Result Comment: Vitamin K An tagonist (VKA) Therapeutic Range: INR 2 to 3 (Target INR of 2.5) Note: For patients treated with VKA drugs, such as warfarin, the [place] College of Chest Physicians 2012 Guideline recommends [...] Performed By: #### PTTAC, 34 528-0 #### [facility] CLIA [id number] [address] [place] [address] [place] PTT, ANTICOAGULANT THERAPY Collected: 0 10/27/2024 4:22 AM Status: F Source: [facility] Comment: Specimen Type : BLOOD SPECIMEN Ordering Facility: [facility] Address: [address] [place] [address] TYPE CODE TESTS RESULT OUT OF RANGE REFERENCE UNITS LAB 25612-4([facility]) aPTT PPP 73.8 High 23.0-32.4 sec Performed By: #### PTTAC, 34 528-0 #### [facility] CLIA [id number] [address] [place] [address] [place] CBC PNL BLD AUTO Collected: 4:22 AM Status: F Source: [facility] Comment: Specimen Type : BLOOD SPECIMEN Ordering Facility: [facility] Address: [address] [place] [address] TYPE CODE TESTS RESULT OUT OF RANGE [...] RBC Auto-mCnc 29.6 Low 30.5-36.0 g/dL LAB 47394-2(LOINC) RDW RBC-Rto 19.2 High 11.5-15.0 % LAB 777-3(LOINC) Platelet # Bld Auto 147 Low 150-400 k/uL LAB 88530-5(LOINC) PMV Bld Auto 10.5 9.0-12.7 fL LAB 771-6([facility]) nRBC # Bld Auto <0.01 <0.01 k/uL Performed By: #### 51479-7 # ### [facility] CLIA [id number] [address] [facility] [address] OF [facility] RENAL FUNC 2000 PNL SERPL Collected: 4:22 AM Status: F Source: [facility] Order Comment: Specimen Type : BLOOD SPECIMEN Ordering Facility: [facility] Address: [address] [place] [address] TYPE CODE TESTS RESULT OUT OF RANGE REFERENCE UNITS LAB 1751-7(LOINC) Albumin SerPl-mCnc 3.7 Low 3.9-4.9 g/dL LAB 36555-1(LOINC) Calcium SerPl-mCnc 8.0 Low 8.5-10.2 mg/dL LAB 2777-1(LOINC) Phosphate SerPl-mCnc 4.3 2.7-4.8 mg/dL LAB 2345-7(LOINC) Glucose SerPl-mCnc 89 74-99 mg/dL Result Comment: The [place] Diabetes Association (ADA) provides guidance for cutoff [...] Standards of Medical Care in Diabetes 2016, [place] Diabetes Association. Diabetes Care. 2016.39(Suppl 1). LAB 3094-0(LOINC) BUN SerPl-mCnc 29 High 9-24 mg/ dL LAB 2160-0(LOINC) Creat SerPl-mCnc 9.42 High 0.73-1.22 mg/dL LAB 2951-2(LOINC) Sodium SerPl-sCnc 136 136-144 mmol/L LAB 2823-3(LOINC) Potassium SerPl-sCnc 5.0 3.7-5.1 mmol/L LAB 2075-0(LOINC) Chloride SerPl-sCnc 95 Low 98-107 mmol/L LAB 2028-9(LOINC) CO2 SerPl-sCnc 27 22-30 mmo l/L LAB 43629-1(LOINC) Anion Gap SerPl-sCnc 14 8-15 mmol/L LAB 04884-9(LOINC) Creatinine + eGFR Pnl SerPlBld 7 Low [...] accurately reflect actual GFR. Performed By: #### 44998-5 # ### [facility] CLIA [id number] [address] [place] [address] STATES OF [facility] THERAPY NT Observed: 10/26/2024 5:07 PM Status: COMPLETED Source: [facility] HNO ID: [id number] Author: ARTIE CHI PTA Service: Physical Therapy Author Type: Associate Director Type: Therapy (PT/OT/Speech/Resp) Filed: 10/26/2024 17:09 Note Text: Attestation signed by Grayson Cross PT at 10/26/2024 6:02 PM I reviewed and agree with the documentation corresponding to this therapy visit. SIGNATURE: Grayson Cross PT DATE: October 26, 2024 TIME: 6:02 PM Physical Therapy Treatment Summary SERVICE DATE: 10/26/2024 SERVICE TIME: 1624 to 1702 ROOM: [place] [address] PT 6 Clicks Score: 17 DISCHARGE RECOMMENDATIONS [...] Endorses one fall ~1 week ago from [employer]. SUBJECTIVE THERAPY DIAGNOSIS Reduced mobility-other, Muscle Weakness (generalized), Abnormalities of gait and mobility-other, Unsteadiness on feet TREATMENT INTERVENTIONS Therapeutic Exercise (77691), Gait Training (09187), Therapeutic Activity (64630) Timed Code Treatment (minutes): 38 Skilled Treatment [...] Observed: 10/26/2024 1:29 PM Status: COMPLETED Source: [facility] ID: [id number] Author: LUIS CUI MD Service: General Internal Medicine Author Type: Physician Type: Progress Notes Filed: 10/26/2024 13:30 Note Text: DEPARTMENT OF HOSPITAL MEDICINE PROGRESS NOTE SERVICE DATE: 10/26/2024 SERVICE TIME: 1:29 PM Hospital Medicine/Primary Attending: Luis Cui MD NIGHT AND WEEKEND COVERAGE: [facility] COVERAGE: Days: [phone], please page Luis Cui for patient issues. Nights: [phone], please page Team GIM 1: G/H 8th floor: [address]; Non 8th floor [address] Subjective INTERVAL HPI: No acute events overnight [...] and Airways Line Duration Peripheral 10/12/24 0530 [facility] Short Right Forearm 20 Gauge 14 days Dialysis / Apheresis Double Lumen 10/22/24 1932 [facility] Tunneled Right Subclavian 3 days Patient does [...] IHD via left femoral vein TDC on MWF([facility] ), SVC syndrome as a complication of [...] ESRD (end stage renal disease) on dialysis ([facility]) HTN (hypertension) YEIMY (obstructive sleep apnea) 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 Personal history of DVT (deep vein thrombosis) PAF (paroxysmal atrial fibrillation) ([facility]) History of stroke Hypotension, chronic Anemia due to stage 5 chronic kidney disease, not on chronic dialysis ([facility]) ([facility]) Status post Maze operation for atrial fibrillation [...] on hemodialysis via RIGHT chest TDC on [facility] Hyperkalemia - Nephrology following and optimizing [...] with family. Luis Cui MD Associate Staff [address] [place] [id number] Pager [phone] PT ED Observed: 10/26/2024 11:12 AM Status: COMPLETED Source: [facility] HNO ID: [id number] Author: EDUARDO MAYNARD RD Service: Nutrition Therapy [...] 0 10/26/2024 7:37 AM Status: F Source: [facility] Order Comment: Specimen Type : BLOOD SPECIMEN Ordering Facility: [facility] Address: [address] [place] [address] TYPE CODE TESTS RESULT OUT OF RANGE REFERENCE UNITS LAB 58090-7(LOINC) aPTT PPP 58.8 High 23.0-32.4 sec Performed By: #### PTTAC ### # [facility] CLIA [id number] [address] [place] [address] [id number] [place], [place] [id number] [place] CBC PNL BLD AUTO Collected: 4:38 AM Status: F Source: [facility] Order Comment: Specimen Type : BLOOD SPECIMEN Ordering Facility: [facility] Address: [address] [place] [address] TYPE CODE TESTS RESULT OUT OF RANGE REFERENCE UNITS LAB 6690-2(LOINC) WBC # Bld Auto 4.39 3.70-11.00 k/uL LAB 789-8(INC) RBC # Bld Auto 3.04 Low 4.20-6.00 m/uL LAB 718-7([facility]) Hgb Bld-mCnc 8.8 Low 13.0-17.0 g/dL LAB 4544-3([facility]) Hct VFr Bld Auto 29.2 Low 39.0-51.0 % LAB 787-2([facility]) MCV RBC Auto 96.1 80.0-100.0 fL LAB 785-6([facility]) MCH RBC Qn Auto 28.9 26.0-34.0 pg LAB 786-4([facility]) MCHC RBC Auto-mCnc 30.1 Low 30.5-36.0 g/dL LAB 79896-6([facility]) RDW RBC-Rto 19.3 High 11.5-15.0 % LAB 777-3([facility]) Platelet # Bld Auto 152 150-400 k/uL LAB 11998-9([facility]) PMV Bld Auto 11.3 9.0-12.7 fL LAB 771-6([facility]) nRBC # Bld Auto <0.01 <0.01 k/uL Performed By: #### 01836-4 # ### [facility] CLIA [id number] [address] [place] [address] [place] RENAL FUNC 2000 PNL SERPL Collected: 4:38 AM Status: F Source: [facility] Order Comment: Specimen Type : BLOOD SPECIMEN Ordering Facility: [facility] Address: [address] [place] [address] TYPE CODE TESTS RESULT OUT OF RANGE REFERENCE UNITS LAB 1751-7([facility]) Albumin SerPl-mCnc 3.8 Low 3.9-4.9 g/dL LAB 70457-6(INC) Calcium SerPl-mCnc 8.5 8.5-10.2 mg/dL LAB 2777-1(INC) Phosphate SerPl-mCnc 3.6 2.7-4.8 mg/dL Result Comment: Result reche cked. LAB 2345-7(LOINC) Glucose SerPl-mCnc 81 74-99 mg/dL Result Comment: The [place] Diabetes Association (ADA) provides guidance for cutoff [...] Standards of Medical Care in Diabetes 2016, [place] Diabetes Association. Diabetes Care. 2016.39(Suppl 1). LAB 3094-0(LOINC) BUN SerPl-mCnc 21 9-24 mg/ dL LAB 2160-0(LOINC) Creat SerPl-mCnc 7.27 High 0.73-1.22 mg/dL LAB 2951-2(LOINC) Sodium SerPl-sCnc 137 136-144 mmol/L LAB 2823-3(LOINC) Potassium SerPl-sCnc 5.2 High 3.7-5.1 mmol/L LAB 2075-0(LOINC) Chloride SerPl-sCnc 95 Low 98-107 mmol/L LAB 2028-9(LOINC) CO2 SerPl-sCnc 28 22-30 mmo l/L LAB 19845-0(LOINC) Anion Gap SerPl-sCnc 14 8-15 mmol/L LAB 16007-2(LOINC) Creatinine + eGFR Pnl SerPlBld 9 Low [...] accurately reflect actual GFR. Performed By: #### 04269-5 # ### [facility] CLIA [id number] [address] [place] [address] [place] PT PNL PPP Collected: 10/26/2024 4:38 AM Status: F Source: [facility] Order Comment: Specimen Type : BLOOD SPECIMEN Ordering Facility: [facility] Address: [address] [place] [address] TYPE CODE TESTS RESULT OUT OF RANGE REFERENCE UNITS LAB 5902-2(LOINC) Prothrombin time 16.6 High 9.7-13.0 sec LAB 6301-6(LOINC) INR PPP 1.6 High 0.9-1.3 Result Comment: Vitamin K An tagonist (VKA) Therapeutic Range: INR 2 to 3 (Target INR of 2.5) Note: For patients treated with VKA drugs, such as warfarin, the [place] College of Chest Physicians 2012 Guideline recommends [...] Chest 2012, 141:7S-47S Kevin RA, et al. [facility] 2017, 70: 252-289 Performed By: #### 50034-1 # ### [facility] IA [id number] [address] [place] [address] [place] CNCO Observed: 10/26/2024 12:00 AM Status: COMPLETED Source: [facility] Letter Text ALLIED HEALTH Observed: 10/25/2024 4:49 PM Status: COMPLETED Source: [facility] HNO ID: [id number] Author: SHANNON HOOD Music Therapist Service: Music [...] Played Instrument Music Used: Recordings: Melodies From [employer], My Soul Doth Magnify the Lord, I'm Available to You; Live: His Eye is On the Sparrow, Safe in His Arms, I Trust You Style of Music: Gospel Family Present: No Patient's Verbal Response: Positive OUTCOME: Goals: Met FOLLOW UP: Will Continue to Follow Music therapy referral received and appreciated. Pt familiar with services from previous admissions. [facility] entered room and found pt awake in chair. [facility] greeted pt and provided introduction and [...] to be working on programming a community [employer] concert/workshop to be held in December, and [...] 25, 2024 TIME: 4:49 PM PAGER/CONTACT #: [phone] NUTRITION Observed: 10/25/2024 2:40 PM Status: COMPLETED [facility] [id number] Author: AILEEN SANDOVAL DTR Service: Nutrition Therapy Author Type: Java Engineer Type: Nutrition Filed: 10/25/2024 14:41 Note Text: NUTRITION THERAPY AGRICULTURAL SERVICE TECHNICIAN NOTE SERVICE DATE: 10/25/2024 SERVICE TIME: 1400 [...] Routine Care : 1-15 minutes SIGNATURE: Aileen Sandoval DTR PATIENT NAME: Elia Weston DATE: October 25, 2024 TIME: 2:40 PM PROGRESS Observed: 10/25/2024 1:13 PM Status: COMPLETED Source: [facility] HNO ID: [id number] Author: LUIS CUI MD Service: General Internal Medicine Author Type: Physician Type: Progress Notes Filed: 10/25/2024 13:14 Note Text: DEPARTMENT OF HOSPITAL MEDICINE PROGRESS NOTE SERVICE DATE: 10/25/2024 SERVICE TIME: 1:13 PM Hospital Medicine/Primary Attending: Luis Cui MD NIGHT AND WEEKEND COVERAGE: [facility] COVERAGE: Days: [phone], please page Luis Cui for patient issues. Nights: [phone], please page Team GIM 1: G/H 8th floor: [address]; Non 8th floor [address] Subjective INTERVAL HPI: No acute events overnight [...] and Airways Line Duration Peripheral 10/12/24 0530 [facility] Short Right Forearm 20 Gauge 13 days Dialysis / Apheresis Double Lumen 10/22/24 1932 [facility] Tunneled Right Subclavian 2 days Patient does [...] IHD via left femoral vein TDC on MWF([facility] ), SVC syndrome as a complication of [...] ESRD (end stage renal disease) on dialysis ([facility]) HTN (hypertension) YEIMY (obstructive sleep apnea) 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 Personal history of DVT (deep vein thrombosis) PAF (paroxysmal atrial fibrillation) ([facility]) History of stroke Hypotension, chronic Anemia due to stage 5 chronic kidney disease, not on chronic dialysis ([facility]) ([facility]) Status post Maze operation for atrial fibrillation Skin ulcer, limited to breakdown of skin (HCC) SVC syndrome Generalized weakness Impaired functional mobility, balance, gait, and endurance Secondary hyperparathyroidism, renal (HCC) Ischemic ulcer with fat layer exposed ([facility]) SVC syndrome-multiple right and left IJ catheters [...] -- 10/12/24 1111 activity - mobilize patient (nv,oh) VTE Prophylaxis: VTE prophylaxis appropriate Disposition: To be determined Plan of care discussed with Provider, RN, Patient Plan communicated to: Patient prefers to communicate with family. Luis Cui MD Associate Staff [place] [id number] [facility]/[address] [address] Pager [phone] CASE MANAGEM Observed: 10/25/2024 12:49 PM Status: COMPLETED Source: [facility] HNO ID: [id number] Author: CORBY RESENDEZ RN Service: ? Author [...] would like to explore other SNF's besides [facility] and would like for CM to send referrals to [id number] [facility]F's within [place] miles of [facility] to review for acceptance. Will need SNF that either offers on site HD or is willing to transport. Patient's current HD center is too far from [facility] so if patient chooses to facility [...] antibody. SIGNATURE: Corby Resendez RN PATIENT NAME: Elia Weston DATE: October 25, 2024 TIME: 12:49 PM ALLIED HEALTH Observed: 10/25/2024 11:01 AM Status: COMPLETED Source: [facility] HNO ID: [id number] Author: LOLY GREWAL Art Therapist Service: Art [...] 25, 2024 TIME: 11:58 AM PAGER/CONTACT #: [phone] CONSULT PROG Observed: 10/25/2024 9:20 AM Status: COMPLETED Source: [facility] HNO ID: [id number] Author: ELVA PATEL APRN.INDUSTRIAL TECHNOLOGIST Service: ? Author Type: Nurse Practitioner Type: Consult Progress Note Filed: 10/25/2024 11:30 Note Text: Department of Kidney Medicine Medical Specialties [place] [facility] NEPHROLOGY CONSULT SERVICE PROGRESS NOTE INTERVAL [...] and Airways Line Duration Peripheral 10/12/24 0530 [facility] Short Right Forearm 20 Gauge 13 days Dialysis / Apheresis Double Lumen 10/22/24 1932 [facility] Tunneled Right Subclavian 2 days Labs: Recent [...] 1. ESRD Hx First HD: 2005 Unit: [facility] Loading Dock Hand: Dr. Melendez Days: [facility] EDW: 114.1 kg Time: 4.5 hrs Access: RIJ TDC placed 10/22/24 this admission SHPT: rocaltrol 1.5mcg TIW, sensipar 60mg daily, PTH 1500 Heparin: 10,000u bolus 2. Electrolytes/Acid Base: -Potassium - hyperkalemia - will modulate with 2K bath in [employer]ES [employer]OCIATE Last URR: 65 3. Volume status: -hypervolemic - BP 119/64 -Midodrine - Pre weight : 125 kg on Q6 versus 113 on 10/12 on RNF?>>need standing weights, order was replaced on 10/20, and still has not been completed on [facility]. 4. Acid-base: - AGMA - will modulate with TE[employer] SALES ASSOCIATE 5. Ca/P/Pth/Bone mineral disease: - Sevelamer with [...] order replaced 10/20, nursing reminded. Consent for TE[employer] SALES [employer]: ESRD Outpatient dialysis disposition plan: contact [phone] and ask to speak with the help desk consultant as needed for assistance with post-discharge arrangements. Please DO NOT schedule patient for a nephrology follow up appointment. Kidney care will be provided by the primary member of technical staff at their dialysis unit upon hospital discharge. Elva Patel APRN.INDUSTRIAL TECHNOLOGIST Nephrology and Hypertension [facility] October 25, 2024 9:20 AM PAGER # [phone] Disclosures: Parts of the current progress note may have been copied from a previous note. FOR AFTER HOUR CONCERNS BETWEEN 5PM - 7AM CONTACT ON-CALL NEPHROLOGY FELLOW [phone] THERAPY NT Observed: 10/25/2024 7:55 AM Status: COMPLETED Source: [facility] HNO ID: [id number] Author: GRAYSON CROSS PT Service: Physical Therapy Author Type: Physical Therapist Type: Therapy (PT/OT/Speech/Resp) Filed: 10/25/2024 07:55 Note Text: PHYSICAL THERAPY MISSED VISIT SERVICE DATE: 10/25/2024 SERVICE TIME: 754 ROOM: [place] [address] ([facility]1 Hemodialysis) Patient not seen due to: Dialysis SIGNATURE: Grayson Cross PT PATIENT NAME: Elia Weston DATE: October 25, 2024 TIME: 7:55 AM RENAL FUNC 1999 PNL SERPL Collected: 5:20 AM Status: F Source: [facility] Order Comment: Specimen Type : BLOOD SPECIMEN Ordering Facility: [facility] Address: [address] [place] [address] TYPE CODE TESTS RESULT OUT OF RANGE REFERENCE UNITS LAB 1751-7(LOINC) Albumin SerPl-mCnc 3.8 Low 3.9-4.9 g/dL LAB 52698-8(LOINC) Calcium SerPl-mCnc 8.1 Low 8.5-10.2 mg/dL LAB 2777-1(LOINC) Phosphate SerPl-mCnc 6.1 High 2.7-4.8 mg/dL LAB 2345-7(LOINC) Glucose SerPl-mCnc 86 74-99 mg/dL Result Comment: The [place] Diabetes Association (ADA) provides guidance for cutoff [...] Standards of Medical Care in Diabetes 2016, [place] Diabetes Association. Diabetes Care. 2016.39(Suppl 1). LAB 3094-0(LOINC) BUN SerPl-mCnc 42 High 9-24 mg/ dL LAB 2160-0(LOINC) Creat SerPl-mCnc 11.15 High 0.73-1.22 mg/dL LAB 2951-2(LOINC) Sodium SerPl-sCnc 136 136-144 mmol/L LAB 2823-3(LOINC) Potassium SerPl-sCnc 5.9 High 3.7-5.1 mmol/L LAB 2075-0(LOINC) Chloride SerPl-sCnc 95 Low 98-107 mmol/L LAB 2028-9(LOINC) CO2 SerPl-sCnc 24 22-30 mmo l/L LAB 24850-1(LOINC) Anion Gap SerPl-sCnc 17 High 8-15 mmol/L LAB 82263-2(LOINC) Creatinine + eGFR Pnl SerPlBld 5 Low [...] accurately reflect actual GFR. Performed By: #### 99633-2 # ### [facility] CLIA [id number] [address] [place] [address] [place] CBC PNL BLD AUTO Collected: 5 5:20 AM Status: F Source: [facility] Order Comment: Specimen Type : BLOOD SPECIMEN Ordering Facility: [facility] Address: [address] [place] [address] TYPE CODE TESTS RESULT OUT OF RANGE REFERENCE UNITS LAB 6690-2([facility]) WBC # Bld Auto 5.59 3.70-11.00 k/uL LAB 789-8(INC) RBC # Bld Auto 2.79 Low 4.20-6.00 m/uL LAB 718-7([facility]) Hgb Bld-mCnc 8.0 Low 13.0-17.0 g/dL LAB 4544-3([facility]) Hct VFr Bld Auto 26.4 Low 39.0-51.0 % LAB 787-2(INC) MCV RBC Auto 94.6 80.0-100.0 fL LAB 785-6([facility]) MCH RBC Qn Auto 28.7 26.0-34.0 pg LAB 786-4([facility]) MCHC RBC Auto-mCnc 30.3 Low 30.5-36.0 g/dL LAB 91757-5([facility]) RDW RBC-Rto 19.2 High 11.5-15.0 % LAB 777-3(INC) Platelet # Bld Auto 166 150-400 k/uL LAB 14907-1([facility]) PMV Bld Auto 11.2 9.0-12.7 fL LAB 771-6([facility]) nRBC # Bld Auto <0.01 <0.01 k/uL Performed By: #### 28084-0 # ### [facility] CLIA [id number] [address] [place], [place] [id number] [place] PT PNL PPP Collected: 10/25/2024 5:19 AM Status: F Source: [facility] Order Comment: Specimen Type : BLOOD SPECIMEN Ordering Facility: [facility] Address: [address] [place], [place] [address] TYPE CODE TESTS RESULT OUT OF RANGE REFERENCE UNITS LAB 5902-2([facility]) Prothrombin time 16.3 High 9.7-13.0 sec LAB 6301-6([facility]) INR PPP 1.5 High 0.9-1.3 Result Comment: Vitamin K An tagonist (VKA) Therapeutic Range: INR 2 to 3 (Target INR of 2.5) Note: For patients treated with VKA drugs, such as warfarin, the [place] College of Chest Physicians 2012 Guideline recommends [...] Chest 2012, 141:7S-47S Kevin RA, et al. [facility] 2017, 70: 252-289 Performed By: #### PTTAC, 34 528-0 #### [facility] CLIA [id number] [address] [place] [address] [place] PTT, ANTICOAGULANT THERAPY Collected: 0 10/25/2024 5:19 AM Status: F Source: [facility] Order Comment: Specimen Type : BLOOD SPECIMEN Ordering Facility: [facility] Address: [address] [place] [address] TYPE CODE TESTS RESULT OUT OF RANGE REFERENCE UNITS LAB 71777-0(LOINC) aPTT PPP 76.9 High 23.0-32.4 sec Performed By: #### PTTAC, 34 528-0 #### [facility] CLIA [id number] [address] [place] [address] [place] PROGRESS Observed: 10/24/2024 12:47 PM Status: COMPLETED Source: [facility] HNO ID: [id number] Author: LUIS CUI MD Service: General Internal Medicine Author Type: Physician Type: Progress Notes Filed: 10/24/2024 12:48 Note Text: DEPARTMENT OF HOSPITAL MEDICINE PROGRESS NOTE SERVICE DATE: 10/24/2024 SERVICE TIME: 12:47 PM Hospital Medicine/Primary Attending: Luis Cui MD NIGHT AND WEEKEND COVERAGE: [facility] COVERAGE: Days: [phone], please page Luis Cui for patient issues. Nights: [phone], please page Team GIM 1: G/H 8th floor: [address]; Non 8th floor [address] Subjective INTERVAL HPI: No acute events overnight [...] and Airways Line Duration Peripheral 10/12/24 0530 [facility] Short Right Forearm 20 Gauge 12 days Dialysis / Apheresis Double Lumen 10/22/24 1932 [facility] Tunneled Right Subclavian 1 day Patient does [...] IHD via left femoral vein TDC on MWF([facility] ), SVC syndrome as a complication of [...] on hemodialysis via RIGHT chest TDC on [facility] Hyperkalemia - Nephrology following and optimizing HD - Samsd + optimize bowel regimen. - Renal diet [...] with family. Luis Cui MD Associate Staff [address]/[place] [id number] Pager [phone] PT PNL PPP Collected: 10/24/2024 4:12 AM Status: F Source: [facility] Order Comment: Specimen Type : BLOOD SPECIMEN Ordering Facility: [facility] Address: [address] [place] [address] TYPE CODE TESTS RESULT OUT OF RANGE REFERENCE UNITS LAB 5902-2(LOINC) Prothrombin time 15.9 High 9.7-13.0 sec LAB 6301-6(LOINC) INR PPP 1.5 High 0.9-1.3 Result Comment: Vitamin K An tagonist (VKA) Therapeutic Range: INR 2 to 3 (Target INR of 2.5) Note: For patients treated with VKA drugs, such as warfarin, the [place] College of Chest Physicians 2012 Guideline recommends [...] Chest 2012, 141:7S-47S Kevin RA, et al. [facility] 2017, 70: 252-289 Performed By: #### 34436-4, PTTAC #### [facility] CLIA [id number] [address] [place] [address] [place] [address] [place] PTT, ANTICOAGULANT THERAPY Collected: 0 10/24/2024 4:12 AM Status: F Source: [facility] Order Comment: Specimen Type : BLOOD SPECIMEN Ordering Facility: [facility] Address: [address] [place] [id number] TYPE CODE TESTS RESULT OUT OF RANGE REFERENCE UNITS LAB 40634-9(LOINC) aPTT PPP 73.5 High 23.0-32.4 sec Performed By: #### 98875-4, PTTAC #### [facility] CLIA [id number] [address] [facility] [id number] [id number] [place] BAS METAB 2000 PNL SERPL Collected: 3:38 AM Status: F Source: [facility] Order Comment: Specimen Type : BLOOD SPECIMEN Ordering Facility: [facility] Address: [address] [place] [address] TYPE CODE TESTS RESULT OUT OF RANGE REFERENCE UNITS LAB 2345-7(LOINC) Glucose SerPl-mCnc 86 74-99 mg/dL Result Comment: The [place] Diabetes Association (ADA) provides guidance for cutoff [...] Standards of Medical Care in Diabetes 2016, [place] Diabetes Association. Diabetes Care. 2016.39(Suppl 1). LAB 3094-0(LOINC) BUN SerPl-mCnc 32 High 9-24 mg/ dL LAB 2160-0(LOINC) Creat SerPl-mCnc 9.22 High 0.73-1.22 mg/dL LAB 2951-2(LOINC) Sodium SerPl-sCnc 135 Low 136-144 mmol/L LAB 2823-3(LOINC) Potassium SerPl-sCnc 5.6 High 3.7-5.1 mmol/L LAB 2075-0(LOINC) Chloride SerPl-sCnc 94 Low 98-107 mmol/L LAB 8-9(LOINC) CO2 SerPl-sCnc 25 22-30 mmo l/L LAB 01026-0(LOINC) Anion Gap SerPl-sCnc 16 High 8-15 mmol/L LAB 48876-0(LOINC) Calcium SerPl-mCnc 8.0 Low 8.5-10.2 mg/dL LAB 66019-9(LOINC) Creatinine + eGFR Pnl SerPlBld 7 Low [...] accurately reflect actual GFR. Performed By: #### 21642-4 # ### [facility] CLIA [id number] [address] [place] [address] [place] PTT, ANTICOAGULANT THERAPY Collected: 0 10/23/2024 8:43 PM Status: F Source: [facility] Order Comment: Specimen Type : BLOOD SPECIMEN Ordering Facility: [facility] Address: [address] [place] [address] TYPE CODE TESTS RESULT OUT OF RANGE REFERENCE UNITS LAB 84079-7(INC) aPTT PPP 60.7 High 23.0-32.4 sec Performed By: #### PTTAC ### # [facility] CLIA [id number] [address] [place] [address] [place] PROGRESS Observed: 10/23/2024 3:03 PM Status: COMPLETED Source: [facility] HNO ID: [id number] Author: LUIS CUI MD Service: General Internal Medicine Author Type: Physician Type: Progress Notes Filed: 10/23/2024 15:17 Note Text: DEPARTMENT OF HOSPITAL MEDICINE PROGRESS NOTE SERVICE DATE: 10/23/2024 SERVICE TIME: 3:06 PM Hospital Medicine/Primary Attending: Luis Cui MD NIGHT AND WEEKEND COVERAGE: [facility] COVERAGE: Days: [phone], please page Luis Cui for patient issues. Nights: [phone], please page Team GIM 1: G/H 8th floor: [address]; Non 8th floor [address] Subjective INTERVAL HPI: No acute events overnight [...] and Airways Line Duration Peripheral 10/12/24 0530 [facility] Short Right Forearm 20 Gauge 11 days Dialysis / Apheresis Double Lumen 10/22/24 1932 [facility] Tunneled Right Subclavian <1 day Patient does [...] IHD via left femoral vein TDC on MWF([facility] ), SVC syndrome as a complication of [...] ESRD (end stage renal disease) on dialysis ([facility]) HTN (hypertension) YEIMY (obstructive sleep apnea) 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 Personal history of DVT (deep vein thrombosis) PAF (paroxysmal atrial fibrillation) ([facility]) History of stroke Hypotension, chronic Anemia due to stage 5 chronic kidney disease, not on chronic dialysis ([facility]) ([facility]) Status post Maze operation for atrial fibrillation [...] on hemodialysis via RIGHT chest TDC on [facility] Hyperkalemia - Nephrology following and optimizing HD - Samsd + optimize bowel regimen. - Renal diet [...] 0 10/23/2024 1:29 PM Status: F Source: [facility] Order Comment: Specimen Type : BLOOD SPECIMEN Ordering Facility: [facility] Address: [address] [place] [address] TYPE CODE TESTS RESULT OUT OF RANGE REFERENCE UNITS LAB 33407-8(LOINC) aPTT PPP 64.1 High 23.0-32.4 sec Performed By: #### PTTAC ### # [facility] CLIA [id number] [address] [place] [address] [place] [address] [place] BAS METAB 2000 PNL SERPL Collected: 5:05 AM Status: F Source: [facility] Order Comment: Specimen Type : BLOOD SPECIMEN Ordering Facility: [facility] Address: [address] [place] [address] TYPE CODE TESTS RESULT OUT OF RANGE REFERENCE UNITS LAB 2345-7(LOINC) Glucose SerPl-mCnc 80 74-99 mg/dL Result Comment: The [place] Diabetes Association (ADA) provides guidance for cutoff [...] Standards of Medical Care in Diabetes 2016, [place] Diabetes Association. Diabetes Care. 2016.39(Suppl 1). LAB 3094-0(LOINC) BUN SerPl-mCnc 22 9-24 mg/ dL LAB 2160-0(LOINC) Creat SerPl-mCnc 7.20 High 0.73-1.22 mg/dL LAB 2951-2(LOINC) Sodium SerPl-sCnc 135 Low 136-144 mmol/L LAB 2823-3(LOINC) Potassium SerPl-sCnc 5.0 3.7-5.1 mmol/L LAB 2075-0(LOINC) Chloride SerPl-sCnc 93 Low 98-107 mmol/L LAB 2027-9(LOINC) CO2 SerPl-sCnc 28 22-30 mmo l/L LAB 66959-9(LOINC) Anion Gap SerPl-sCnc 14 8-15 mmol/L LAB 95717-9(LOINC) Calcium SerPl-mCnc 8.3 Low 8.5-10.2 mg/dL LAB 02555-5(LOINC) Creatinine + eGFR Pnl SerPlBld 9 Low [...] accurately reflect actual GFR. Performed By: #### 04314-0 # ### [facility] CLIA [id number] [address] [place] [address] [place] [facility] CBC PNL BLD AUTO Collected: 5 5:05 AM Status: F Source: [facility] Order Comment: Specimen Type : BLOOD SPECIMEN Ordering Facility: [facility] Address: [address] [place] [address] TYPE CODE TESTS RESULT OUT OF RANGE [...] RBC Auto-mCnc 29.5 Low 30.5-36.0 g/dL LAB 71724-5(LOINC) RDW RBC-Rto 19.2 High 11.5-15.0 % LAB 777-3(LOINC) Platelet # Bld Auto 205 150-400 k/uL LAB 55068-2(LOINC) PMV Bld Auto 11.4 9.0-12.7 fL LAB 771-6(LOINC) nRBC # Bld Auto <0.01 <0.01 k/uL Performed By: #### 12691-7 # ### [facility] CLIA [id number] [address] [place] [address] PT PNL PPP Collected: 10/23/2024 5:04 AM Status: F Source: [facility] Order Comment: Specimen Type : BLOOD SPECIMEN Ordering Facility: [facility] Address: [address] [place] [address] TYPE CODE TESTS RESULT OUT OF RANGE REFERENCE UNITS LAB 5902-2([facility]) Prothrombin time 16.4 High 9.7-13.0 sec LAB 6301-6([facility]) INR PPP 1.6 High 0.9-1.3 Result Comment: Vitamin K An tagonist (VKA) Therapeutic Range: INR 2 to 3 (Target INR of 2.5) Note: For patients treated with VKA drugs, such as warfarin, the [place] College of Chest Physicians 2012 Guideline recommends [...] Performed By: #### PTTAC, 34 528-0 #### [facility] CLIA [id number] [address] [place] [address] OF [facility] PTT, ANTICOAGULANT THERAPY Collected: 0 10/23/2024 5:04 AM Status: F Source: [facility] Order Comment: Specimen Type : BLOOD SPECIMEN Ordering Facility: [facility] Address: [address] [place] [address] TYPE CODE TESTS RESULT OUT OF RANGE REFERENCE UNITS LAB 74721-2([facility]) aPTT PPP 51.6 High 23.0-32.4 sec Performed By: #### PTTAC, 34 528-0 #### [facility] CLIA [id number] [address] [place] [address] [place] CBC PNL BLD AUTO Collected: 11:00 PM Status: F Source: [facility] Order Comment: Specimen Type : BLOOD SPECIMEN Ordering Facility: [facility] Address: [address] [place] [address] TYPE CODE TESTS RESULT OUT OF RANGE [...] MCHC RBC Auto-mCnc 31.1 30.5-36.0 g/dL LAB 67200-0(LOINC) RDW RBC-Rto 19.0 High 11.5-15.0 % LAB 777-3(LOINC) Platelet # Bld Auto 184 150-400 k/uL LAB 60630-9([facility]) PMV Bld Auto 10.6 9.0-12.7 fL LAB 771-6([facility]) nRBC # Bld Auto <0.01 <0.01 k/uL Performed By: #### 23471-7 # ### [facility] CLIA [id number] [address] [place] [address] [place] PT PNL PPP Collected: 5 11:00 PM Status: F Source: [facility] Order Comment: Specimen Type : BLOOD SPECIMEN Ordering Facility: [facility] Address: [address] [place] [address] TYPE CODE TESTS RESULT OUT OF RANGE REFERENCE UNITS LAB 5902-2([facility]) Prothrombin time 16.2 High 9.7-13.0 sec LAB 6301-6([facility]) INR PPP 1.5 High 0.9-1.3 Result Comment: Vitamin K An tagonist (VKA) Therapeutic Range: INR 2 to 3 (Target INR of 2.5) Note: For patients treated with VKA drugs, such as warfarin, the [place] College of Chest Physicians 2012 Guideline recommends [...] JACC 2017, 70: 252-289 Performed By: #### 75904-9, 17114-5 #### [facility] CLIA [id number] [address] [place] [address] [place] APTT PPP Collected: 5 11:00 PM Status: F Source: [facility] Order Comment: Specimen Type : BLOOD SPECIMEN Ordering Facility: [facility] Address: [address] [place] [address] TYPE CODE TESTS RESULT OUT OF RANGE REFERENCE UNITS LAB 79251-5(LOINC) aPTT PPP 37.7 High 23.0-32.4 sec Performed By: #### 07599-4, 65936-5 #### [facility] CLIA [id number] [address] [place] [address] [place] ANES POSTPROC EVAL Observed: 10/22/2024 7:36 PM Status: COMPLETED Source: [facility] HNO ID: [id number] Author: Nikhil BELL MD Service: ? Author [...] October 22, 2024 TIME: 7:36 PM CSN: [id number] BRIEF OP NOT Observed: 10/22/2024 6:57 PM Status: COMPLETED Source: [facility] HNO ID: [id number] Author: JYOTI ISSA MD Service: Radiology Author Type: Physician Type: Brief Op Note Filed: 10/22/2024 19:01 Note Text: BRIEF OPERATIVE / PROCEDURE NOTE LOG ID: [id number] SURGERY/PROCEDURE DATE: 10/22/2024 INCISION/PROCEDURE START TIME: 5:11 PM INCISION CLOSE/PROCEDURE END TIME: 6:52 PM SURGEON(S)/PROCEDURALIST(S) AND STAFFING ADMINISTRATOR(S): Surgeons and Role: * Jyoti Issa MD [...] Observed: 09/30 6:52 PM Status: F Source: [facility] * * *Final Report* * * DATE OF EXAM: Oct 22 2024 6:52PM [facility] 8020 - IR CENTRAL CATH PLACEMENT [...] performed by the: attending radiologist, with an phlebotomist medical lab assistant. The attending radiologist performed the following [...] and agree with the report as written. Market Relationship Manager: AZAM Transcribe Date/Time: Oct 22 2024 7:02P Dictated by : JYOTI ISSA MD This examination was interpreted and the report reviewed and electronically signed by: JYOTI ISSA MD on Oct 22 2024 7:36PM EST [id number] IR PLASTY ONLY CENTRAL DIALYSIS Observed : 10/22/2024 6:52 PM Status: F Source: [facility] * * *Final Report* * * DATE OF EXAM: Oct 22 2024 6:52PM [facility] 0608 - IR PLASTY ONLY CENTRAL [...] performed by the: attending radiologist, with an phlebotomist medical lab assistant. The attending radiologist performed the following [...] and agree with the report as written. Market Relationship Manager: AZAM Transcribe Date/Time: Oct 22 2024 7:02P Dictated by : JYOTI ISSA MD This examination was interpreted and the report reviewed and electronically signed by: JYOTI ISSA MD on Oct 22 2024 7:36PM EST IR VEIN PLASTY NON-AVF INIT Observed: 6:52 PM Status: F Source: [facility] * * *Final Report* * * DATE OF EXAM: Oct 22 2024 6:52PM [facility] 0613 - IR VEIN PLASTY NON-AVF [...] performed by the: attending radiologist, with an phlebotomist medical lab assistant. The attending radiologist performed the following [...] and agree with the report as written. Market Relationship Manager: PSCB Transcribe Date/Time: Oct 22 2024 7:02P Dictated by : JYOTI ISSA MD This examination was interpreted and the report reviewed and electronically signed by: JYOTI ISSA MD on Oct 22 2024 7:36PM EST ANES PROCEDURE NOTE Observed: 10/22/2024 5:00 PM Status: COMPLETED Source: [facility] HNO ID: [id number] Author: DANNY BEASLEY APRN.PICTURE FRAME MAKER Service: ? Author Type: Nurse Latex Foam Worker Type: Anesthesia Procedure Notes Filed: 10/22/2024 17:00 Note Text: ANESTHESIOLOGY PROCEDURE NOTE Airway General Information Procedure Start Time/Medication Administration: 10/22/2024 4:32 PM Procedure End Time: 10/22/2024 4:33 PM Patient location during procedure: OR Timeout Performed Pre-procedure: timeout performed Consent Obtained: Yes Patient identity confirmed: arm band, care user experience team lead and patient Staffing PICTURE FRAME MAKER: Danny Beasley APRN.PICTURE FRAME MAKER Performed by: PICTURE FRAME MAKER Indications and Patient Condition Indications for airway management: anesthesia Preoxygenated: yes anesthesia circuit Patient position: ramp Method: asleep Cricoid Pressure: No Manual In-Line Stabilization: No Difficult Mask: No Final Airway Details Final airway type: endotracheal airway Final Endotracheal Airway: ETT Cuffed: yes Successful intubation technique: video laryngoscopy Devices used: [place] Endotracheal tube insertion site: oral Blade: Raquel Blade size: #4 ETT size (mm): 7.5 Measured from: lips Measurement (cm): 23 Placement verified by: chest auscultation and capnometry Cormack-Lehane Classification: grade I - full view of glottis Number of attempts at approach: 1 Ventilation between attempts: none Failed airway: no Unrecognized esophageal intubation: no Airway not difficult SIGNATURE: Danny Beasley APRN.PICTURE FRAME MAKER PATIENT NAME: Elia Weston DATE: October 22, 2024 TIME: 5:00 PM CSN: [id number] ANES PRE-OP Observed: 10/22/2024 3:58 PM Status: COMPLETED Source: [facility] ID: [id number] Author: Nikhil BELL MD Service: ? Author [...] (obstructive sleep apnea) CARDIO (+) A-V fistula ([facility]) (+) Acquired stenosis of superior vena cava (+) Arteriovenous graft stenosis, sequela (+) Atrial fibrillation ([facility]) (+) CHB (complete heart block) ([facility]) (+) Clotted renal dialysis AV graft ([facility]) (+) Essential hypertension, benign (+) HTN (hypertension) (+) Intra-abdominal varices (+) Jugular vein occlusion, bilateral ([facility]) (+) Myocardial infarction ([facility]) (+) PAF (paroxysmal atrial fibrillation) ([facility]) (+) Paroxysmal atrial flutter ([facility]) (+) Pulmonary embolism ([facility]) (+) SVC syndrome (+) Stenosis of other vascular prosthetic devices, implants and grafts, initial encounter ([facility]) (+) 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 of procedure (+) Unspecified atherosclerosis of [place] arteries of extremities, right leg ([facility]) (+) Venous collateral circulation ENDO (+) Acquired hypothyroidism (+) Hypothyroidism -RENAL (+) Anemia due to chronic kidney disease, on chronic dialysis ([facility]) (+) Anemia of renal disease (+) Dialysis patient ([facility]) (+) ESRD (end stage renal disease) ([facility]) (+) ESRD (end stage renal disease) on dialysis ([facility] [facility]) (+) End-stage renal disease on hemodialysis ([facility]) (+) Renal osteodystrophy NEURO-PSYCH (+) History of [...] and consent discussed: yes. Patient / Responsible Libertarian agrees to proceed: yes Patient / Surrogate [...] October 22, 2024 TIME: 3:58 PM CSN: [id number] GAS + CO PNL BLDV Collected: 3:30 PM Status: F Source: [facility] Order Comment: Specimen Type : VENOUS BLOOD SPECIMEN Ordering Facility: [facility] Address: [address] [place] [address] TYPE CODE TESTS RESULT OUT OF RANGE REFERENCE UNITS LAB 2746-6(LOINC) pH BldV 7.42 7.32-7.42 LAB 94345-1(LOINC) pH temp adj BldV 7.43 High 7.32-7.42 LAB 2020-4(LOINC) pCO2 BldV 42 42-55 mmHg LAB 95845-7(LOINC) pCO2 temp adj BldV 41 Low 42-55 mmHg LAB 2705-2(LOINC) pO2 BldV 38 35-45 mmHg LAB 75914-5(LOINC) pO2 temp adj BldV 37 35-45 mmHg LAB 2711-0(LOINC) SaO2 % BldV 61 60-85 % LAB 1927-3(LOINC) Base excess BldV Calc-sCnc 3 High 0-2 mmol/L LAB 78311-5(LOINC) HCO3 BldV-sCnc 27 24-28 mmol/L LAB 2716-9(LOINC) OxyHgb MFr BldV 59 Low 60-85 % LAB 2032-1(LOINC) COHgb MFr BldV 1.5 0.0-2.0 % Result Comment: Carboxyhemog lobin Reference Range for Smokers: 2.0-8.0% LAB 2614-6(LOINC) MetHgb MFr Bld 1.3 0.0-1.5 % LAB 2947-0(LOINC) Sodium Bld-sCnc 140 136-144 mmol/L LAB 6298-4([facility]) Potassium Bld-sCnc 3.6 3.5-5.0 mmol/L LAB 59405-2([facility]) Ca-I Bld-mCnc 0.92 Low 1.08-1.30 m mol/L LAB 57893-8([facility]) Ca-I adj pH7.4 BldA-sCnc 0.93 Low 1.08-1.30 mmol/L LAB 2339-0(INC) Glucose Bld-mCnc 70 60-105 mg/dL LAB 13655-0([facility]) Lactate Bld-sCnc 1.0 0.5-2.2 mmol/L LAB 718-7(INC) Hgb Bld-mCnc 7.9 Low 13.0-17.0 g/dL LAB 4544-3(INC) Hct VFr Bld Auto 24.7 Low 39.0-51.0 % LAB VTMP TEMPERATURE, BODY 36.7 C Result Comment: CHANGED FROM ???F TO ???C. LAB VO2TH O2 THERAPY RA=Room Air Performed By: #### 84790-3 # ### [facility] CLIA [id number] [address] [place] [address] [place] PROGRESS Observed: 10/22/2024 3:00 PM Status: COMPLETED Source: [facility] HNO ID: [id number] Author: MATA BRGIGS MD Service: Hospital Medicine Author Type: Physician Type: Progress Notes Filed: 10/22/2024 15:20 Note Text: DEPARTMENT OF HOSPITAL MEDICINE PROGRESS NOTE SERVICE DATE: 10/22/2024 SERVICE TIME: 3:00 PM Hospital Medicine/Primary Attending: Mata Briggs MD NIGHT AND WEEKEND COVERAGE: [facility] COVERAGE: Days: [phone], please page Mata Briggs for patient issues. Nights: [phone], please page Team GIM 1: G/H 8th floor: 92849; Non 8th floor [address] Subjective INTERVAL HPI: Seen during dialysis, notes [...] Left Femoral 17 days Peripheral 10/12/24 0530 [facility] Short Right Forearm 20 Gauge 10 days [...] ESRD (end stage renal disease) on dialysis ([facility]) HTN (hypertension) YEIMY (obstructive sleep apnea) 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 Personal history of DVT (deep vein thrombosis) PAF (paroxysmal atrial fibrillation) ([facility]) History of stroke Hypotension, chronic Anemia due to stage 5 chronic kidney disease, not on chronic dialysis ([facility]) ([facility]) Status post Maze operation for atrial fibrillation Skin ulcer, limited to breakdown of skin ([facility]) SVC syndrome Generalized weakness Impaired functional mobility, balance, gait, and endurance Secondary hyperparathyroidism, renal ([facility]) Ischemic ulcer with fat layer exposed ([facility]) HOSPITAL COURSE: Justine Weston is a 44 year old male with h/o atrial fibrillation and severe mitral stenosis s/p mitral valve replacement with On-x valve, Maze procedure and RADHA clip on 08/21/2021, currently on Coumadin, ESRD on IHD via left femoral vein TDC on [facility] ), SVC syndrome as a complication of [...] TDC placement today (INR 1.7, FFP ordered regional rehabilitation director skye-procedurally) -- Rsum Chest and abdomen ulcerations [...] Observed: 10/22/2024 2:24 PM Status: COMPLETED Source: [facility] ID: [id number] Author: HANNAH SAEED OT/L Service: Occupational Therapy Author Type: Occupational Therapist Type: Therapy (PT/OT/Speech/Resp) Filed: 10/22/2024 14:24 Note Text: Occupational Therapy Treatment Summary SERVICE DATE: 10/22/2024 SERVICE TIME: 1322 to 1346 ROOM: [place] [address] Clicks Score: 18 DISCHARGE RECOMMENDATIONS Subacute/SNF Recommended [...] symptoms and signs-other TREATMENT INTERVENTIONS Therapeutic Activity (60642), Self Prison Management (60089) Timed Code Treatment (minutes): 24 Skilled Treatment Time (minutes): 24 TRAINING AND EDUCATION PROVIDED Activity Adaptation/Compensatory Strategies, Bed Mobility, Discharge Planning, Lower Extremity Dressing, Role of Occupational Therapy, Treatment Protocol, Sitting Balance to Improve [place] with ADLs/Self-Care, Assistive Device Use, Adaptive Equipment/DME [...] Observed: 10/22/2024 12:03 PM Status: COMPLETED Source: [facility] ID: [id number] Author: EILEEN PERALTA RN Service: Care Management Author Type: Registered Nurse Type: Care Mgt Progress Note Filed: 10/22/2024 12:38 Note Text: CARE MANAGEMENT PROGRESS NOTE NO WEEKEND DISCHARGE SERVICE DATE: 10/22/2024 SERVICE TIME: 9:58 AM LOS: 10 days Post-Acute Discharge Planning Patient Goal(s): General wellness Anticipated # of Days Until Discharge: 4 Transport at Discharge: Transportation Arrangements: Ambulance Transportation Agency and Phone #:: [facility] [phone] (To be arranged) Type of Service: BLS Non-emergency Is Patient Medicaid Pending?: No Was transportation financial coverage discussed with family?: Patient Dive Superintendent Location: Main [place] Destination: [facility] Financial Care Management Responsibility: None Needs Prior to Discharge: Needs Prior to Discharge: To Be Determined, Accepting Facility, Bed Availability, Insurance Authorization, Precertification, Discharge Transportation (Medical Clearance, HD arrangments) Post-Acute Discharge Plan: When medically stable for hospital discharge, planning for SNF. CM sent 10/21 PT note that skilled pt for SNF, and now [facility] is willing to move forward with requesting a HD chair and them hopefully submit for ins auth. Per request of Cerron at [facility], the CC dialysis case management associate was rewuested to send them dialysis referral info (Neph note, HD order, last 3 HD sessions, Hep B pane). [facility] back up plan -updated clinicals sent to the pending referrals, however the patient is not established with a PCP at this time. CM to follow. Please see Treatment Team for Care Management Weekend/Holiday coverage. SIGNATURE: Eileen Peralta RN PATIENT NAME: Elia Weston DATE: October 22, 2024 TIME: 12:03 PM PROGRESS Observed: 10/22/2024 10:23 AM Status: COMPLETED Source: [facility] HNO ID: [id number] Author: ?, ?, ? Service: Nephrology Author Type: ? Type: Progress Notes Filed: 10/22/2024 10:24 Note Text: DIALYSIS PLACEMENT NOTE Per case management associate, plan for patient to discharge to [facility]. Faxed dialysis records for onsite dialysis approval. Facility: [facility] ([address] [place] [address]) Signature: Bj Rico Patient Name: Elia Weston Date: October 22, 2024 Time: 10:23 AM CONSULT PROG Observed: 10/22/2024 9:22 AM Status: COMPLETED Source: [facility] HNO ID: [id number] Author: ELVA PATEL APRN.MIKI Service: ? Author Type: Nurse Practitioner Type: Consult Progress Note Filed: 10/22/2024 09:32 Note Text: Department of Kidney Medicine Medical Specialties [place] [facility] NEPHROLOGY CONSULT SERVICE PROGRESS NOTE INTERVAL [...] Left Femoral 17 days Peripheral 10/12/24 0530 [facility] Short Right Forearm 20 Gauge 10 days [...] 1. ESRD Hx First HD: 2005 Unit: [facility] Loading Dock Hand: Dr. Melendez Days: MW EDW: 114.1 kg Time: 4.5 hrs Access: L Fem TDC SHPT: rocaltrol 1.5mcg TIW, sensipar 60mg daily, PTH 1500 Heparin: 10,000u bolus 2. Electrolytes: -Potassium - hyperkalemia - will modulate with 2K bath in [employer] SALES [employer]OCIATE Last URR: 65 3. Volume status: -hypervolemic - BP 119/64 -Midodrine - Pre weight : 123 kg on Q6 versus 113 on 10/12 on RNF?>>need standing weights, order was replaced on 10/20, and still has not been completed on [facility]. 4. Acid-base: - AGMA - will modulate with TECH[employer] SALES ASSOCIATE 5. Ca/P/Pth/Bone mineral disease: - Sevelamer with [...] order replaced 10/20, nursing reminded. Consent for [employer]: ESRD Outpatient dialysis disposition plan: contact [phone] and ask to speak with the help desk consultant as needed for assistance with post-discharge arrangements. Please DO NOT schedule patient for a nephrology follow up appointment. Kidney care will be provided by the primary member of technical staff at their dialysis unit upon hospital discharge. Elva Patel APRN.INDUSTRIAL TECHNOLOGIST Nephrology and Hypertension [facility] October 22, 2024 9:22 AM PAGER # [phone] Disclosures: Parts of the current progress note may have been copied from a previous note. FOR AFTER HOUR CONCERNS BETWEEN 5PM - 7AM CONTACT ON-CALL NEPHROLOGY FELLOW [phone] PLAN OF CARE Observed: 10/22/2024 9:19 AM Status: COMPLETED Source: [facility] HNO ID: [id number] Author: MATA BRIGGS MD Service: Hospital Medicine [...] SERPL Collected: 5:49 AM Status: F Source: [facility] Order Comment: Specimen Type : BLOOD SPECIMEN Ordering Facility: [facility] Address: [address] [place] [address] TYPE CODE TESTS RESULT OUT OF RANGE REFERENCE UNITS LAB 2345-7(LOINC) Glucose SerPl-mCnc 83 74-99 mg/dL Result Comment: The [place] Diabetes Association (ADA) provides guidance for cutoff [...] Standards of Medical Care in Diabetes 2016, [place] Diabetes Association. Diabetes Care. 2016.39(Suppl 1). LAB 3094-0(LOINC) BUN SerPl-mCnc 48 High 9-24 mg/ dL LAB 2160-0(LOINC) Creat SerPl-mCnc 10.82 High 0.73-1.22 mg/dL LAB 2951-2(LOINC) Sodium SerPl-sCnc 135 Low 136-144 mmol/L LAB 2823-3(LOINC) Potassium SerPl-sCnc 6.2 High Alert 3.7-5.1 mmol/L LAB 2075-0(LOINC) Chloride SerPl-sCnc 97 Low 98-107 mmol/L LAB 2027-9(LOINC) CO2 SerPl-sCnc 23 22-30 mmo l/L LAB 90616-2(LOINC) Anion Gap SerPl-sCnc 15 8-15 mmol/L LAB 28025-4(LOINC) Calcium SerPl-mCnc 8.0 Low 8.5-10.2 mg/dL LAB 61488-9(LOINC) Creatinine + eGFR Pnl SerPlBld 6 Low [...] accurately reflect actual GFR. Performed By: #### 93636-1 # ### [facility] CLIA [id number] [address] [place] [address] [place] CBC PNL BLD AUTO Collected: 5 5:49 AM Status: F Source: [facility] Order Comment: Specimen Type : BLOOD SPECIMEN Ordering Facility: [facility] Address: [address] [place] [address] TYPE CODE TESTS RESULT OUT OF RANGE [...] RBC Auto-mCnc 30.1 Low 30.5-36.0 g/dL LAB 76865-5(LOINC) RDW RBC-Rto 18.9 High 11.5-15.0 % LAB 777-3(LOINC) Platelet # Bld Auto 212 150-400 k/uL LAB 79630-7(LOINC) PMV Bld Auto 10.8 9.0-12.7 fL LAB 771-6(LOINC) nRBC # Bld Auto <0.01 <0.01 k/uL Performed By: #### 26407-3 # ### [facility] CLIA [id number] [address] [place] [address] OF [facility] PT PNL PPP Collected: 10/22/2024 5:48 AM Status: F Source: [facility] Order Comment: Specimen Type : BLOOD SPECIMEN Ordering Facility: [facility] Address: [address] [place] [address] TYPE CODE TESTS RESULT OUT OF RANGE REFERENCE UNITS LAB 5902-2(INC) Prothrombin time 17.4 High 9.7-13.0 sec LAB 6301-6([facility]) INR PPP 1.7 High 0.9-1.3 Result Comment: Vitamin K An tagonist (VKA) Therapeutic Range: INR 2 to 3 (Target INR of 2.5) Note: For patients treated with VKA drugs, such as warfarin, the [place] College of Chest Physicians 2012 Guideline recommends [...] Chest 2012, 141:7S-47S Kevin RA, et al. [facility] 2017, 70: 252-289 Performed By: #### 83522-9, PTTAC #### [facility] CLIA [id number] [address] [place] [address] [place] PTT, ANTICOAGULANT THERAPY Collected: 0 10/22/2024 5:48 AM Status: F Source: [facility] Comment: Specimen Type : BLOOD SPECIMEN Ordering Facility: [facility] Address: [address] [place] [address] TYPE CODE TESTS RESULT OUT OF RANGE REFERENCE UNITS LAB 56039-5(LOINC) aPTT PPP 64.3 High 23.0-32.4 sec Performed By: #### 92289-9, PTTAC #### [facility] CLIA [id number] [address] [place] [address] [place] TYPE + SCREEN Collected: 10/22/2024 12:08 AM Status: F Source: [facility] Comment: Specimen Type : BLOOD SPECIMEN Ordering Facility: [facility] Address: [address] [place] [address] TYPE CODE TESTS RESULT OUT OF RANGE REFERENCE UNITS LAB [id number] ABO B LAB 1474450898 RH Positive LAB 8532945832 ANTIBODY SCREEN Negative LAB 0781779490 TYPE AND SCREEN EXPIRATION 10/25/2024 23:59 Performed By: #### TSCR #### [facility] CLIA [id number] [address] [place] [address] [place] BAS METAB 2000 PNL SERPL Collected: 12:08 AM Status: F Source: [facility] Comment: Specimen Type : BLOOD SPECIMEN Ordering Facility: [facility] Address: [address] [place] [address] TYPE CODE TESTS RESULT OUT OF RANGE REFERENCE UNITS LAB 2345-7(LOINC) Glucose SerPl-mCnc 83 74-99 mg/dL Result Comment: The [place] Diabetes Association (ADA) provides guidance for cutoff [...] Standards of Medical Care in Diabetes 2016, [place] Diabetes Association. Diabetes Care. 2016.39(Suppl 1). LAB 3094-0(LOINC) BUN SerPl-mCnc 43 High 9-24 mg/ dL LAB 2160-0(LOINC) Creat SerPl-mCnc 10.58 High 0.73-1.22 mg/dL LAB 2951-2(LOINC) Sodium SerPl-sCnc 135 Low 136-144 mmol/L LAB 2823-3(LOINC) Potassium SerPl-sCnc 5.8 High 3.7-5.1 mmol/L LAB 2075-0(LOINC) Chloride SerPl-sCnc 96 Low 98-107 mmol/L LAB 2028-9(LOINC) CO2 SerPl-sCnc 22 22-30 mmo l/L LAB 44159-4(LOINC) Anion Gap SerPl-sCnc 17 High 8-15 mmol/L LAB 99694-6(LOINC) Calcium SerPl-mCnc 8.0 Low 8.5-10.2 mg/dL LAB 04853-9(LOINC) Creatinine + eGFR Pnl SerPlBld 6 Low [...] accurately reflect actual GFR. Performed By: #### 50457-1 # ### [facility] CLIA [id number] [address] [place] [address] [place] CONSULT PROG Observed: 10/21/2024 8:12 PM Status: COMPLETED Source: [facility] HNO ID: [id number] Author: NANCY PEDROZA MD Service: Dermatology Author [...] were performed on block A1 at the [facility] and compared to appropriate controls. A [...] proliferation, immunohistochemical staining is performed at the [facility] on block A1 with appropriate controls. [...] vasculature Patient seen and discussed with attending price checker, Dr. Pedroza Thank you for allowing us to participate in this patient's care. We will sign off at this time. Please re-consult us should any new concerns arise. Taylor Lackey MD Dermatology, PGY-4 October 21, 2024 8:12 PM Please use consult pager [phone], Mon-Fri 8am-5pm. Please call electric truck crane operator for on-call resident/pager during all other [...] Observed: 10/21/2024 6:35 PM Status: COMPLETED Source: [facility]NO ID: [id number] Author: GRAYSON CROSS PT Service: Physical Therapy Author Type: Physical Therapist Type: Therapy (PT/OT/Speech/Resp) Filed: 10/21/2024 18:35 Note Text: Physical Therapy Treatment Summary SERVICE DATE: 10/21/2024 SERVICE TIME: 172 to 181 ROOM: [facility] PT 6 Clicks Score: 17 DISCHARGE RECOMMENDATIONS [...] Endorses one fall ~1 week ago from [employer]. SUBJECTIVE Patient stated that he was ready for PT. THERAPY DIAGNOSIS Reduced mobility-other, Muscle Weakness (generalized), Abnormalities of gait and mobility-other, Unsteadiness on feet TREATMENT INTERVENTIONS Therapeutic Exercise (74898), Therapeutic Activity (12902), Gait Training (26699) Timed Code Treatment (minutes): 42 Skilled Treatment [...] Observed: 10/21/2024 3:33 PM Status: COMPLETED Source: [facility]NO ID: [id number] Author: MATA BRIGGS MD Service: Hospital Medicine Author Type: Physician Type: Progress Notes Filed: 10/21/2024 15:41 Note Text: [facility] MEDICINE PROGRESS NOTE SERVICE DATE: 10/21/2024 SERVICE TIME: 3:34 PM Hospital Medicine/Primary Attending: Mata Briggs MD NIGHT AND WEEKEND COVERAGE: [facility] COVERAGE: Days: [phone], please page Mata Briggs for patient issues. Nights: [phone], please page Team M 1: G/H 8th floor: 17759; Non 8th floor [address] Subjective INTERVAL HPI: Doing well today overall. [...] Left Femoral 16 days Peripheral 10/12/24 0530 [facility] Short Right Forearm 20 Gauge 9 days [...] ESRD (end stage renal disease) on dialysis ([facility]) HTN (hypertension) YEIMY (obstructive sleep apnea) 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 Personal history of DVT (deep vein thrombosis) PAF (paroxysmal atrial fibrillation) ([facility]) History of stroke Hypotension, chronic Anemia due to stage 5 chronic kidney disease, not on chronic dialysis ([facility]) ([facility]) Status post Maze operation for atrial fibrillation Skin ulcer, limited to breakdown of skin ([facility]) SVC syndrome Generalized weakness Impaired functional mobility, balance, gait, and endurance Secondary hyperparathyroidism, renal ([facility]) HOSPITAL COURSE: Justine Weston is a 44 year old male with h/o atrial fibrillation and severe mitral stenosis s/p mitral valve replacement with On-x valve, Maze procedure and RADHA clip on 08/21/2021, currently on Coumadin, ESRD on IHD via left femoral vein TDC on F([facility] ), SVC syndrome as a complication of [...] valve (INR goal 2.5-3.5), Maze procedure and ARDHA clip on 08/21/2021. - Cont heparin gtt, - HOLD coumadin in anticipation of OR ESRD on hemodialysis via left femoral vein TDC on [facility] Hyperkalemia - Nephrology following and optimizing [...] -- 10/12/24 1111 activity - mobilize patient (nv,ct) VTE Prophylaxis: VTE prophylaxis appropriate Disposition: SNF, appreciate CM assistance Plan of care discussed with Provider, RN, Patient SIGNATURE: Mata Briggs MD PATIENT NAME: Elia Weston CASE MANAGEM Observed: 10/21/2024 11:57 AM Status: COMPLETED Source: [facility]NO ID: [id number] Author: EILEEN PERALTA RN Service: Care Management [...] Discharge Plan: Pending medical clearance: Home with [facility] (referrals pending, F2F needed) vs SNF vs ECF. CM [facility] clinical[facility] and asked if they will [...] Collected: 10/21/2024 8:06 AM Status: F Source: [facility] Order Comment: Specimen Type : BLOOD SPECIMEN Ordering Facility: [facility] Address: [address] [place] [address] TYPE CODE TESTS RESULT OUT OF RANGE REFERENCE UNITS LAB 5902-2(LOINC) Prothrombin time 18.3 High 9.7-13.0 sec LAB 6301-6(LOINC) INR PPP 1.8 High 0.9-1.3 Result Comment: Vitamin K An tagonist (VKA) Therapeutic Range: INR 2 to 3 (Target INR of 2.5) Note: For patients treated with VKA drugs, such as warfarin, the [place] College of Chest [employer]icians 2012 Guideline recommends [...] Chest 2012, 141:7S-47S Kevin RA, et al. [facility] 2017, 70: 252-289 Performed By: #### PTTAC, 34 528-0 #### [facility] CLIA [id number] [address] [place] [address] [place] PTT, ANTICOAGULANT THERAPY Collected: 0 10/21/2024 8:06 AM Status: F Source: [facility] Order Comment: Specimen Type : BLOOD SPECIMEN Ordering Facility: [facility] Address: [address] [place] [address] TYPE CODE TESTS RESULT OUT OF RANGE REFERENCE UNITS LAB 91597-3(LOINC) aPTT PPP 60.8 High 23.0-32.4 sec Performed By: #### PTTAC, 34 528-0 #### [facility] CLIA [id number] [address] [place] [address] [place] CBC PNL BLD AUTO Collected: 8:06 AM Status: F Source: [facility] Order Comment: Specimen Type : BLOOD SPECIMEN Ordering Facility: [facility] Address: [address] [place] [address] TYPE CODE TESTS RESULT OUT OF RANGE [...] RBC Qn Auto 27.6 26.0-34.0 pg LAB 786-4([facility]) MCHC RBC Auto-mCnc 29.4 Low 30.5-36.0 g/dL LAB 11344-0([facility]) RDW RBC-Rto 18.8 High 11.5-15.0 % LAB 777-3([facility]) Platelet # Bld Auto 228 150-400 k/uL LAB 25233-7([facility]) PMV Bld Auto 11.3 9.0-12.7 fL LAB 771-6([facility]) nRBC # Bld Auto <0.01 <0.01 k/uL Performed By: #### 18237-0 # ### [facility] CLIA [id number] [address] [place] [address] [place] BAS METAB 2000 PNL SERPL Collected: 5:08 PM Status: F Source: [facility] Order Comment: Specimen Type : BLOOD SPECIMEN Ordering Facility: [facility] Address: [address] [place] [address] TYPE CODE TESTS RESULT OUT OF RANGE REFERENCE UNITS LAB 2345-7([facility]) Glucose SerPl-mCnc 87 74-99 mg/dL Result Comment: The [place] Diabetes Association (ADA) provides guidance for cutoff [...] Standards of Medical Care in Diabetes 2016, [place] Diabetes Association. Diabetes Care. 2016.39(Suppl 1). LAB 3094-0(LOINC) BUN SerPl-mCnc 30 High 9-24 mg/ dL LAB 2160-0(LOINC) Creat SerPl-mCnc 8.34 High 0.73-1.22 mg/dL LAB 2951-2(LOINC) Sodium SerPl-sCnc 134 Low 136-144 mmol/L LAB 2823-3(LOINC) Potassium SerPl-sCnc 5.3 High 3.7-5.1 mmol/L LAB 2075-0(LOINC) Chloride SerPl-sCnc 94 Low 98-107 mmol/L LAB 2028-9(LOINC) CO2 SerPl-sCnc 25 22-30 mmo l/L LAB 49512-7(LOINC) Anion Gap SerPl-sCnc 15 8-15 mmol/L LAB 18766-9(LOINC) Calcium SerPl-mCnc 8.5 8.5-10.2 mg/dL LAB 52826-5(LOINC) Creatinine + eGFR Pnl SerPlBld 8 Low [...] accurately reflect actual GFR. Performed By: #### 44464-5 # ### [facility] CLIA [id number] [address] [place] [address] [place] CASE MANAGEM Observed: 10/20/2024 3:45 PM Status: COMPLETED Source: [facility]NO ID: [id number] Author: EILEEN PERALTA RN Service: Care Management [...] Discharge Plan: Pending medical clearance: Home with [facility] (referrals pending, F2F needed) vs Extended [...] Observed: 10/20/2024 3:22 PM Status: COMPLETED Source: [facility] ID: [id number] Author: MATA BRIGGS MD Service: Hospital Medicine Author Type: Physician Type: Progress Notes Filed: 10/20/2024 15:34 Note Text: DEPARTMENT OF HOSPITAL MEDICINE PROGRESS NOTE SERVICE DATE: 10/20/2024 SERVICE TIME: 3:24 PM Hospital Medicine/Primary Attending: Mata Briggs MD NIGHT AND WEEKEND COVERAGE: [facility] COVERAGE: Days: [phone], please page Mata Briggs for patient issues. Nights: [phone], please page Team GIM 1: G/H 8th floor: 77231; Non 8th floor [address] Subjective INTERVAL HPI: Seen during dialysis. 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 Personal history of DVT (deep vein thrombosis) PAF (paroxysmal atrial fibrillation) ([facility]) History of stroke Hypotension, chronic Anemia due to stage 5 chronic kidney disease, not on chronic dialysis ([facility]) ([facility]) Status post Maze operation for atrial fibrillation Skin ulcer, limited to breakdown of skin (HCC) SVC syndrome Generalized weakness Impaired functional mobility, balance, gait, and endurance Secondary hyperparathyroidism, renal ([facility]) HOSPITAL COURSE: Justine Weston is a 44 year old male with h/o atrial fibrillation and severe mitral stenosis s/p mitral valve replacement with On-x valve, Maze procedure and RADHA clip on 08/21/2021, currently on Coumadin, ESRD on IHD via left femoral vein TDC on [facility] ), SVC syndrome as a complication of [...] hemodialysis via left femoral vein TDC on [facility] Hyperkalemia - Nephrology following and optimizing [...] -- 10/12/24 1111 activity - mobilize patient (nv,ct) VTE Prophylaxis: VTE prophylaxis appropriate Disposition: SNF, [facility] assistance Plan of care discussed with Provider, RN, Patient SIGNATURE: Mata Briggs MD PATIENT NAME: Elia Weston [facility] Observed: 10/20/2024 1:50 PM Status: COMPLETED Source: [facility] HNO ID: [id number] Author: SHANNON HOOD Music Therapist Service: Music [...] 21, 2024 TIME: 8:56 AM PAGER/CONTACT #: [phone] CONSULT PROG Observed: 10/20/2024 10:06 AM Status: COMPLETED Source: [facility] HNO ID: [id number] Author: ELVA PATEL APRN.INDUSTRIAL TECHNOLOGIST Service: ? Author Type: Nurse Practitioner Type: Consult Progress Note Filed: 10/20/2024 10:42 Note Text: Department of Kidney Medicine Medical Specialties [place] [facility] NEPHROLOGY CONSULT SERVICE PROGRESS NOTE INTERVAL [...] Left Femoral 15 days Peripheral 10/12/24 0530 [facility] Short Right Forearm 20 Gauge 8 days Peripheral 10/19/24 1645 [facility] Short Left Forearm 20 Gauge <1 day [...] 1. ESRD Hx First HD: 2005 Unit: [facility] Loading Dock Hand: Dr. Melendez Days: EDW: 114.1 kg Time: 4.5 hrs Access: L Fem TDC SHPT: rocaltrol 1.5mcg TIW, sensipar 60mg daily, PTH 1500 Heparin: 10,000u bolus 2. Electrolytes: -Potassium - hyperkalemia - will modulate with 2K bath in TECHNICAL SALES ASSOCIATE -Sodium -134 3. Volume status: -hypervolemic - BP 110/65 -Midodrine - Pre weight : 124.9 kg?>>need standing weights 4. Acid-base: - AGMA - will modulate with TECHNICAL SALES ASSOCIATE 5. Ca/P/Pth/Bone mineral disease: - Sevelamer with [...] not been completed since 10/12 Consent for TECH[employer] SALES ASSOCIATE: ESRD Outpatient dialysis disposition plan: contact [phone] and ask to speak with the help desk consultant as needed for assistance with post-discharge arrangements. Please DO NOT schedule patient for a nephrology follow up appointment. Kidney care will be provided by the primary member of technical staff at their dialysis unit upon hospital discharge. Elva Patel APRN.INDUSTRIAL TECHNOLOGIST Nephrology and Hypertension [facility] October 20, 2024 10:06 AM PAGER # [phone] Disclosures: Parts of the current progress note may have been copied from a previous note. FOR AFTER HOUR CONCERNS BETWEEN 5PM - 7AM CONTACT ON-CALL NEPHROLOGY FELLOW [phone] THERAPY NT Observed: 10/20/2024 9:58 AM Status: COMPLETED Source: [facility] HNO ID: [id number] Author: ELLIE ALFORD OT/L Service: Occupational Therapy Author Type: Occupational Therapist Type: Therapy (PT/OT/Speech/Resp) Filed: 10/20/2024 09:58 Note Text: OCCUPATIONAL THERAPY MISSED VISIT SERVICE DATE: 10/20/2024 SERVICE TIME: 0958 ROOM: [place] [address] ([address]) Patient not seen due to Test / Procedure. SIGNATURE: JASWINDER Sawyer PATIENT NAME: Elia Weston DATE: October 20, 2024 TIME: 9:58 AM THERAPY NT Observed: 10/20/2024 9:41 AM Status: COMPLETED Source: [facility] HNO ID: [id number] Author: MARÍA ESPARZA PT DPT Service: Physical Therapy Author Type: Associate Director Type: Therapy (PT/OT/Speech/Resp) Filed: 10/20/2024 11:05 Note Text: Attestation signed by María Esparza PT DPT at 10/20/2024 11:05 AM I reviewed and agree with the documentation corresponding to this therapy visit. SIGNATURE: María Esparza PT DPT DATE: October 20, 2024 TIME: 11:05 AM PHYSICAL THERAPY MISSED VISIT SERVICE DATE: 10/20/2024 SERVICE TIME: 0940 ROOM: [place] [address] (Formerly [facility], Later [facility]) Patient not seen due to Test / Procedure. SIGNATURE: Kit Han PTA PATIENT NAME: Elia Weston DATE: October 20, 2024 TIME: 9:41 AM BAS METAB 1999 PNL SERPL Collected: 9:32 AM Status: F Source: [facility] Order Comment: Specimen Type : BLOOD SPECIMEN Ordering Facility: [facility] Address: [address] [place] [address] TYPE CODE TESTS RESULT OUT OF RANGE REFERENCE UNITS LAB 2345-7(LOINC) Glucose SerPl-mCnc 83 74-99 mg/dL Result Comment: The [place] Diabetes Association (ADA) provides guidance for cutoff [...] Standards of Medical Care in Diabetes 2016, [place] Diabetes Association. Diabetes Care. 2016.39(Suppl 1). LAB 3094-0(LOINC) BUN SerPl-mCnc 37 High 9-24 mg/ dL LAB 2160-0(LOINC) Creat SerPl-mCnc 9.00 High 0.73-1.22 mg/dL LAB 2951-2(LOINC) Sodium SerPl-sCnc 139 136-144 mmol/L LAB 2823-3(LOINC) Potassium SerPl-sCnc 7.0 High Alert 3.7-5.1 mmol/L LAB 2075-0(LOINC) Chloride SerPl-sCnc 91 Low 98-107 mmol/L LAB 2028-9(LOINC) CO2 SerPl-sCnc 23 22-30 mmo l/L LAB 47239-2(LOINC) Anion Gap SerPl-sCnc 25 High 8-15 mmol/L LAB 68264-5(LOINC) Calcium SerPl-mCnc 7.6 Low 8.5-10.2 mg/dL LAB 76005-9(LOINC) Creatinine + eGFR Pnl SerPlBld 7 Low [...] accurately reflect actual GFR. Performed By: #### 37124-1 # ### [facility] CLIA [id number] [address] [place] [address] [place] CONSULT PROG Observed: 10/20/2024 8:59 AM Status: COMPLETED Source: [facility] HNO ID: [id number] Author: ROSA MOE APRN.CNP Service: Interventional Radiology [...] 0659 10/20/24 0700 - 10/21/24 0659 Shift 5876-2791 6178-8766 8881-6405 24 Hour Total 4535-3756 7971-5270 0492-4846 24 Hour Total INTAKE PO 480 240 [...] medical care of this patient. Please page [phone] or call [phone] if we can be of immediate assistance. For concerns between 4:00PM-7:00AM contact the on-call IR fellow / resident at pager [phone] SIGNATURE: Rosa Moe APRN.CNP PATIENT NAME: Elia Weston DATE: October 20, 2024 TIME: 9:00 AM CBC PNL BLD AUTO Collected: 4:23 AM Status: F Source: [facility] Order Comment: Specimen Type : BLOOD SPECIMEN Ordering Facility: [facility] Address: [address] [place] [address] TYPE CODE TESTS RESULT OUT OF RANGE REFERENCE UNITS LAB 6690-2([facility]) WBC # Bld Auto 5.17 3.70-11.00 k/uL LAB 789-8(INC) RBC # Bld Auto 2.96 Low 4.20-6.00 m/uL LAB 718-7([facility]) Hgb Bld-mCnc 8.3 Low 13.0-17.0 g/dL LAB 4544-3([facility]) Hct VFr Bld Auto 28.7 Low 39.0-51.0 % LAB 787-2(INC) MCV RBC Auto 97.0 80.0-100.0 fL LAB 785-6([facility]) MCH RBC Qn Auto 28.0 26.0-34.0 pg LAB 786-4([facility]) MCHC RBC Auto-mCnc 28.9 Low 30.5-36.0 g/dL LAB 87604-1([facility]) RDW RBC-Rto 19.1 High 11.5-15.0 % LAB 777-3(INC) Platelet # Bld Auto 228 150-400 k/uL LAB 96568-0([facility]) PMV Bld Auto 11.2 9.0-12.7 fL LAB 771-6([facility]) nRBC # Bld Auto <0.01 <0.01 k/uL Performed By: #### 31050-8 # ### [facility] CLIA [id number] [address] [place] [address] [place] BAS METAB 2000 PNL SERPL Collected: 4:23 AM Status: F Source: [facility] Order Comment: Specimen Type : BLOOD SPECIMEN Ordering Facility: [facility] Address: [address] [place] [address] TYPE CODE TESTS RESULT OUT OF RANGE REFERENCE UNITS LAB 2345-7(LOINC) Glucose SerPl-mCnc 79 74-99 mg/dL Result Comment: The [place] Diabetes Association (ADA) provides guidance for cutoff [...] Standards of Medical Care in Diabetes 2016, [place] Diabetes Association. Diabetes Care. 2016.39(Suppl 1). LAB 3094-0(LOINC) BUN SerPl-mCnc 39 High 9-24 mg/ dL LAB 2160-0(LOINC) Creat SerPl-mCnc 9.39 High 0.73-1.22 mg/dL LAB 2951-2(LOINC) Sodium SerPl-sCnc 137 136-144 mmol/L LAB 2823-3(LOINC) Potassium SerPl-sCnc 5.6 High 3.7-5.1 mmol/L LAB 2075-0(LOINC) Chloride SerPl-sCnc 94 Low 98-107 mmol/L LAB 2028-9(LOINC) CO2 SerPl-sCnc 22 22-30 mmo l/L LAB 04891-9(LOINC) Anion Gap SerPl-sCnc 21 High 8-15 mmol/L LAB 67916-5(LOINC) Calcium SerPl-mCnc 8.3 Low 8.5-10.2 mg/dL LAB 11302-8(LOINC) Creatinine + eGFR Pnl SerPlBld 7 Low [...] accurately reflect actual GFR. Performed By: #### 13666-4 # ### [facility] CLIA [id number] [address] [place] [address] PTT, ANTICOAGULANT THERAPY Collected: 0 10/20/2024 4:23 AM Status: F Source: [facility] Order Comment: Specimen Type : BLOOD SPECIMEN Ordering Facility: [facility] Address: [address] [place] [address] TYPE CODE TESTS RESULT OUT OF RANGE REFERENCE UNITS LAB 74956-3(LOINC) aPTT PPP 59.8 High 23.0-32.4 sec Performed By: #### PTTAC, 34 528-0 #### [facility] CLIA [id number] [address] [place] [address] STATES [place] PT PNL PPP Collected: 10/20/2024 4:23 AM Status: F Source: [facility] Order Comment: Specimen Type : BLOOD SPECIMEN Ordering Facility: [facility] Address: [address] [place] [address] TYPE CODE TESTS RESULT OUT OF RANGE REFERENCE UNITS LAB 5902-2(LOINC) Prothrombin time 18.8 High 9.7-13.0 sec LAB 6301-6(LOINC) INR PPP 1.8 High 0.9-1.3 Result Comment: Vitamin K An tagonist (VKA) Therapeutic Range: INR 2 to 3 (Target INR of 2.5) Note: For patients treated with VKA drugs, such as warfarin, the [place] College of [employer]icians 2012 Guideline recommends [...] Performed By: #### PTTAC, 34 528-0 #### [facility] CLIA [id number] [address] [place] [address] [place] PTT, ANTICOAGULANT THERAPY Collected: 0 10/19/2024 10:04 PM Status: F Source: [facility] Order Comment: Specimen Type : BLOOD SPECIMEN Ordering Facility: [facility] Address: [address] [place] [address] TYPE CODE TESTS RESULT OUT OF RANGE REFERENCE UNITS LAB 44791-8(LOINC) aPTT PPP 69.1 High 23.0-32.4 sec Performed By: #### PTTAC ### # [facility] CLIA [id number] [address] [place] [address] PROGRESS Observed: 10/19/2024 5:48 PM Status: COMPLETED Source: [facility] HNO ID: [id number] Author: GRACIE HUMPHRIES RT(R) Service: Radiology Author [...] PATIENT PRESENTS WITH AN IMPLANTABLE OR ATTACHED INSTRUMENT MAKER AND REPAIRER: No ALLERGIES: Reviewed and unchanged CONTRAST ALLERGY: [...] 0 10/19/2024 5:48 PM Status: F Source: [facility] * * *Final Report* * * DATE OF EXAM: Oct 19 2024 5:48PM [facility] [place] [place] 0123 - CTA [...] RESULT: COMPARISON: CTA 03/18/2024. LIMITATIONS: None CHEST: Network Relations Consultant (topogram) images: No additional findings. Vascular: Left: [...] left pneumothorax. 3. Mediastinal and axillary lymphadenopathy. Market Relationship Manager: AZAM Transcribe Date/Time: Oct 20 2024 10:02A Dictated by : ANGELINE MCCOY MD This examination was interpreted and the report reviewed and electronically signed by: MANASA WRIGHT MD on Oct 20 2024 10:40AM EST [id number] PTT, ANTICOAGULANT THERAPY Collected: 0 10/19/2024 2:31 PM Status: F Source: [facility] Order Comment: Specimen Type : BLOOD SPECIMEN Ordering Facility: [facility] Address: [address] [place] [address] TYPE CODE TESTS RESULT OUT OF RANGE REFERENCE UNITS LAB 67301-8(LOINC) aPTT PPP 49.5 High 23.0-32.4 sec Performed By: #### PTTAC ### # [facility] CLIA [id number] [address] [place] [address] [facility] Observed: 10/19/2024 1:28 PM Status: COMPLETED Source: [facility] HNO ID: [id number] Author: SHANNON HOOD Music Therapist Service: Music [...] 19, 2024 TIME: 1:28 PM PAGER/CONTACT #: [phone] CONSULT Observed: 10/19/2024 1:13 PM Status: COMPLETED Source: [facility] HNO ID: [id number] Author: YOLANDA WEI MD Service: Vascular Surgery Author Type: Physician Type: Consults Filed: 10/19/2024 15:40 Note Text: [facility]ITIAL CONSULT Service Date: 10/19/2024 Admit Date: 10/12/2024 Service Time: 1:14 PM LOS: 7 Vascular Physician: Yolanda Wei MD Subjective Chief Complaint: SVC syndrome with difficult access, vascular surgery consulted for evaluation of stenotic vessels, possible repair, longterm access. HPI: Elia Weston is a 44 [...] are imaged in the imaging tab of [facility]. He notes he has had no numbness [...] on Coumadin and Amiodarone BMI 40.0-44.9, adult ([facility]) ESRD (end stage renal disease) on dialysis ([facility]) 2005 ESRD from HTN Dialysis M,W,F [facility] [phone] Essential hypertension, benign 1998 EKG 09/30 NL. Hearing loss of both ears History of mitral valve stenosis Hx of bacterial endocarditis Hyperparathyroidism due to end stage renal disease on dialysis ([facility]) Kidney disease 2005 ESRD due to HTN; on IHD since 2005 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 and scoliosis h/o this 3 y. Dx by xray. Mechanical complication of arteriovenous fistula surgically created ([facility]) Mechanical complication of dialysis catheter ([facility]) Mitral valve disease Morbid obesity ([facility]) MS (mitral stenosis) 10/08/2018 Transesophageal US YEIMY on CPAP Paroxysmal atrial fibrillation ([facility]) PE (pulmonary thromboembolism) ([facility]) Pelvic mass Pseudoaneurysm of AV hemodialysis fistula ([facility]) Wound of right side of back from friction/rubbing of jacket, goes to wound care center in [place] PAST SURGICAL HISTORY Procedure Laterality Date ARTERIOVENOUS FISTULA Left 08/29/2010 CAPSULE ENDOSCOPY 07/01/2023 CARDIOVERSION-ELECTIVE N/A 12/03/2018 200 joules synchronized - successful COLONOSCOPY 07/01/2023 EGD 06/27/2023 HERNIA REPAIR HX PAST SURGICAL HISTORY OF 08/29/2010 dialysis fistula left arm PAST SURGICAL HISTORY OF Right 03/2019 Right leg femoral vein to superficial femoral artery loop graft mid thigh REPAIR CLEFT LIP RMVL LEANN CVC W/O SUBQ PORT/BANQUET STEWARDESS 01/17/2013 [facility]X CARDIAC RADIOFREQUENCY ABLATION 08/21/2021 s/p [...] -- 10/12/24 1111 activity - mobilize patient (nv,oh) VTE Prophylaxis: VTE prophylaxis appropriate ALLERGIES Allergen [...] Surgery Fellow, PGY-6 10/19/2024 3:17 PM Pager [phone] [facility] STAFF PHYSICIAN NOTE OF PERSONAL INVOLVEMENT IN [...] Observed: 10/19/2024 12:32 PM Status: COMPLETED Source: [facility] HNO ID: [id number] Author: ROSA MOE APRN.CNP Service: Interventional Radiology [...] 0659 10/19/24 0700 - 10/20/24 0659 Shift 3846-9417 7624-3905 0164-4345 24 Hour Total 3192-3342 [phone] 24 Hour Total INTAKE PO 702 702 [...] medical care of this patient. Please page [phone] or call [phone] if we can be of immediate assistance. For concerns between 4:00PM-7:00AM contact the on-call IR fellow / resident at pager [phone] SIGNATURE: Rosa Moe APRN.CNP PATIENT NAME: Elia Weston DATE: October 19, 2024 TIME: 12:45 PM THERAPY NT Observed: 10/19/2024 12:13 PM Status: COMPLETED Source: [facility] ID: [id number] Author: HANNAH SAEED OT/L Service: Occupational Therapy [...] symptoms and signs-other TREATMENT INTERVENTIONS Therapeutic Activity (04376), Self Prison Management (87903) Timed Code Treatment (minutes): 86 Skilled Treatment Time (minutes): 86 TRAINING AND EDUCATION PROVIDED Activity Adaptation/Compensatory Strategies, Benefits of In-Hospital Mobility, Coping Skills/Resiliency, Discharge Planning, Executive Functions/Problem Solving, Functional Mobility Involving ADLs, Grooming Tasks, Insight into Deficits, Life Roles/Routines/Habits, Lower Extremity Dressing, Meaningful Hobby/Leisure Participation, Patient Exercise/Therapy Program Support Needs, Role of Occupational Therapy, Safety/Judgment, Self-Efficacy, Self-Expression/Advocacy, Standing Balance to Improve [place] with ADLs/Self-Care, Stress Management, Treatment Protocol, Visual [...] Observed: 10/19/2024 11:36 AM Status: COMPLETED Source: [facility] ID: [id number] Author: XANDER MOJICA MD Service: Hospital Medicine Author Type: Physician Type: Progress Notes Filed: 10/19/2024 11:56 Note Text: HOSPITAL MEDICINE PROGRESS NOTE SERVICE DATE: 10/19/2024 SERVICE TIME: 11:36 AM Hospital Medicine/Primary Attending: Xander Mojica R* dr. jacki briggs md, is taking back over care on 10/20/2024 from 8 am DAY AND NIGHT/WEEKEND COVERAGE: Between 8AM to 5PM, page [phone] After hours 5PM to 8AM, page [phone] if patient on G80/81 H80/81, page [phone] if on other floors. Subjective INTERVAL HPI: [...] Left Femoral 14 days Peripheral 10/12/24 0530 [facility] Short Right Forearm 20 Gauge 7 days [...] ESRD (end stage renal disease) on dialysis ([facility]) HTN (hypertension) YEIMY (obstructive sleep apnea) 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 Personal history of DVT (deep vein thrombosis) PAF (paroxysmal atrial fibrillation) ([facility]) History of stroke Hypotension, chronic Anemia due to stage 5 chronic kidney disease, not on chronic dialysis ([facility]) ([facility]) Status post Maze operation for atrial fibrillation Skin ulcer, limited to breakdown of skin ([facility]) SVC syndrome Generalized weakness Impaired functional mobility, balance, gait, and endurance HOSPITAL COURSE: Justine Weston is a 44 year old male with h/o atrial fibrillation and severe mitral stenosis s/p mitral valve replacement with On-x valve, Maze procedure and RADHA clip on 08/21/2021, currently on Coumadin, ESRD on IHD via left femoral vein TDC on [facility] ), SVC syndrome as a complication of [...] hemodialysis via left femoral vein TDC on [facility] SVC syndrome-multiple right and left IJ [...] -- 10/12/24 1111 activity - mobilize patient (nv,ct) VTE Prophylaxis: VTE prophylaxis appropriate Disposition: SNF, [facility] assistance Plan of care discussed with [...] record may have been produced using electronic livestock inspector and may contain errors with respect to [...] Observed: 10/19/2024 10:41 AM Status: COMPLETED Source: [facility] HNO ID: [id number] Author: MARÍA ESPARZA PT DPT Service: Physical Therapy Author Type: Associate Director Type: Therapy (PT/OT/Speech/Resp) Filed: 10/20/2024 07:36 Note Text: Attestation signed by María Esparza PT DPRolan at 10/20/2024 7:36 AM I reviewed and agree with the documentation corresponding to this therapy visit. SIGNATURE: María Esparza PT DPT DATE: October 20, 2024 TIME: 7:36 AM Physical Therapy Treatment Summary SERVICE DATE: 10/19/2024 SERVICE TIME: 828 to 957 ROOM: [place] [address] PT 6 Clicks Score: 17 DISCHARGE RECOMMENDATIONS [...] Unsteadiness on feet TREATMENT INTERVENTIONS Gait Training (16540), Therapeutic Activity (11340), Therapeutic Exercise (20356) Timed Code Treatment (minutes): 89 Skilled Treatment [...] Observed: 10/19/2024 9:36 AM Status: COMPLETED Source: [facility] HNO ID: [id number] Author: RAFAT CARUSO RN Service: Nursing Author [...] SERPL Collected: 1:28 AM Status: F Source: [facility] Order Comment: Specimen Type : BLOOD SPECIMEN Ordering Facility: [facility] Address: [address] [place] [address] TYPE CODE TESTS RESULT OUT OF RANGE REFERENCE UNITS LAB 2345-7(LOINC) Glucose SerPl-mCnc 90 74-99 mg/dL Result Comment: The [place] Diabetes Association (ADA) provides guidance for cutoff [...] Standards of Medical Care in Diabetes 2016, [place] Diabetes Association. Diabetes Care. 2016.39(Suppl 1). LAB 3094-0(LOINC) BUN SerPl-mCnc 23 9-24 mg/ dL LAB 2160-0(LOINC) Creat SerPl-mCnc 6.62 High 0.73-1.22 mg/dL LAB 2951-2(LOINC) Sodium SerPl-sCnc 135 Low 136-144 mmol/L LAB 2823-3(LOINC) Potassium SerPl-sCnc 5.4 High 3.7-5.1 mmol/L LAB 2075-0(LOINC) Chloride SerPl-sCnc 94 Low 98-107 mmol/L LAB 2028-9(LOINC) CO2 SerPl-sCnc 25 22-30 mmo l/L LAB 89147-0(LOINC) Anion Gap SerPl-sCnc 16 High 8-15 mmol/L LAB 99152-2(LOINC) Calcium SerPl-mCnc 8.6 8.5-10.2 mg/dL LAB 84352-8(LOINC) Creatinine + eGFR Pnl SerPlBld 10 Low [...] accurately reflect actual GFR. Performed By: #### 88140-7 # ### [facility] CLIA [id number] [address] [place] [address] [place] PTT, ANTICOAGULANT THERAPY Collected: 0 10/19/2024 1:28 AM Status: F Source: [facility] Order Comment: Specimen Type : BLOOD SPECIMEN Ordering Facility: [facility] Address: [address] [place] [address] TYPE CODE TESTS RESULT OUT OF RANGE REFERENCE UNITS LAB 58604-0(LOINC) aPTT PPP 46.4 High 23.0-32.4 sec Performed By: #### PTTAC, 34 528-0 #### [facility] CLIA [id number] [address] [place] [address] [place] PT PNL PPP Collected: 10/19/2024 1:28 AM Status: F Source: [facility] Comment: Specimen Type : BLOOD SPECIMEN Ordering Facility: [facility] Address: [address] [place] [address] TYPE CODE TESTS RESULT OUT OF RANGE REFERENCE UNITS LAB 5902-2(LOINC) Prothrombin time 20.8 High 9.7-13.0 sec LAB 6301-6(LOINC) INR PPP 2.0 High 0.9-1.3 Result Comment: Vitamin K An tagonist (VKA) Therapeutic Range: INR 2 to 3 (Target INR of 2.5) Note: For patients treated with VKA drugs, such as warfarin, the [employer]icians 2012 Guideline recommends [...] Chest 2012, 141:7S-47S Kevin RUSHING et al. [facility] 2017, 70: 252-289 Performed By: #### PTTAC, 34 528-0 #### [facility] CLIA [id number] [address] [place] [address] [place] CBC PNL BLD AUTO Collected: 1:28 AM Status: F Source: [facility] Order Comment: Specimen Type : BLOOD SPECIMEN Ordering Facility: [facility] Address: [address] [place] [address] TYPE CODE TESTS RESULT OUT OF RANGE [...] RBC Auto-mCnc 29.0 Low 30.5-36.0 g/dL LAB 59912-7(LOINC) RDW RBC-Rto 19.0 High 11.5-15.0 % LAB 777-3(LOINC) Platelet # Bld Auto 255 150-400 k/uL LAB 48813-2(LOINC) PMV Bld Auto 10.8 9.0-12.7 fL LAB 771-6(LOINC) nRBC # Bld Auto <0.01 <0.01 k/uL Performed By: #### 92963-4 # ### [facility] CLIA [id number] [address] [place] [address] [place] NURSING PROG Observed: 10/18/2024 4:25 PM Status: COMPLETED Source: [facility] HNO ID: [id number] Author: HANNAH WOOD RN Service: ? Author Type: Registered Nurse Type: Nursing Progress Note Filed: 10/18/2024 16:26 Note Text: Patient refused dressing changes this AM. Will attempt again later in evening. PRN IV Dilaudid available before dressing changes. Patient voiced understanding. PROGRESS Observed: 10/18/2024 3:42 PM Status: COMPLETED Source: [facility]NO ID: [id number] Author: MATA BRIGGS MD Service: Hospital Medicine Author Type: Physician Type: Progress Notes Filed: 10/18/2024 15:44 Note Text: DEPARTMENT OF HOSPITAL MEDICINE PROGRESS NOTE SERVICE DATE: 10/18/2024 SERVICE TIME: 3:42 PM Hospital Medicine/Primary Attending: Mata Briggs MD NIGHT AND WEEKEND COVERAGE: [facility] COVERAGE: Days: [phone], please page Mata Briggs for patient issues. Nights: [phone], please page Team GIM 1: G/H 8th floor: [address]32; Non 8th floor [address] Subjective INTERVAL HPI: Seen during dialysis. Feeling [...] Left Femoral 13 days Peripheral 10/12/24 0530 [facility] Short Right Forearm 20 Gauge 6 days [...] ESRD (end stage renal disease) on dialysis ([facility]) HTN (hypertension) YEIMY (obstructive sleep apnea) 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 Personal history of DVT (deep vein thrombosis) PAF (paroxysmal atrial fibrillation) ([facility]) History of stroke Hypotension, chronic Anemia due to stage 5 chronic kidney disease, not on chronic dialysis ([facility]) ([facility]) Status post Maze operation for atrial fibrillation Skin ulcer, limited to breakdown of skin ([facility]) SVC syndrome Generalized weakness Impaired functional mobility, balance, gait, and endurance HOSPITAL COURSE: Justine Weston is a 44 year old male with h/o atrial fibrillation and severe mitral stenosis s/p mitral valve replacement with On-x valve, Maze procedure and RADHA clip on 08/21/2021, currently on Coumadin, ESRD on IHD via left femoral vein TDC on MWF([facility] ), SVC syndrome as a complication of [...] -- 10/12/24 1111 activity - mobilize patient (nv,ct) VTE Prophylaxis: VTE prophylaxis appropriate Disposition: SNF, [facility] assistance Plan of care discussed with Provider, RN, Patient SIGNATURE: Mata Briggs MD PATIENT NAME: Elia Weston NUTRITION Observed: 10/18/2024 1:44 PM Status: COMPLETED Source: [facility] ID: [id number] Author: BHASKAR RAMIREZ DTR Service: Nutrition Therapy Author Type: Java Engineer Type: Nutrition Filed: 10/18/2024 13:45 Note Text: NUTRITION THERAPY AGRICULTURAL SERVICE TECHNICIAN NOTE SERVICE DATE: 10/18/2024 SERVICE TIME: 915 [...] Observed: 10/18/2024 12:50 PM Status: COMPLETED Source: [facility] ID: [id number] Author: EILEEN PERALTA RN Service: Care Management Author Type: Registered Nurse Type: Care Mgt Progress Note Filed: 10/18/2024 17:26 Note Text: CARE MANAGEMENT PROGRESS NOTE SERVICE DATE: 10/18/2024 SERVICE TIME: 12:50 PM LOS: 6 days Needs Prior to Discharge: To Be Determined;Accepting Facility;Bed Availability;Insurance Authorization;Wound Care;Discharge Transportation Post-Acute Discharge Plan: SNF vs [facility], Pending medical stability for hospital discharge. Per EMR chart review: -Cont bridging with heparin gtt, coumadin -- INR goal 2.5 - 3.5 -Evaluated by dermatology and s/p biopsy, Follow biopsy result - IR consulted and CT venogram C/A/P 10/18 pr specialist patient for Home PT To discuss discharge planning, CM went to bedside, patient was out of room/off unit. Updated [facility] left at bedside and sent to patient's phone. [facility] the only remaining accepting SNF with dialysis support. Patient is parked here, may need transport support. CM to follow. SIGNATURE: Eileen Peralta RN PATIENT NAME: Elia Weston DATE: October 18, 2024 TIME: 12:50 PM CONSULT PROG Observed: 10/18/2024 12:34 PM Status: COMPLETED Source: [facility]NO ID: [id number] Author: VICKIE DURHAM APRN.MIKI Service: Nephrology Author Type: Nurse Practitioner Type: Consult Progress Note Filed: 10/18/2024 14:15 Note Text: Department of Kidney Medicine Medical Specialties [place] [facility] NEPHROLOGY CONSULT SERVICE PROGRESS NOTE INTERVAL [...] Left Femoral 13 days Peripheral 10/12/24 0530 [facility] Short Right Forearm 20 Gauge 6 days [...] 1. ESRD Hx First HD: 2005 Unit: [facility] Loading Dock Hand: Dr. Melendez Days: EDW: 114kg Access: L Fem TDC SHPT: rocaltrol 1.5mcg TIW, sensipar 60mg daily, PTH 1500 Heparin: 10,000u bolus 2. Electrolytes: -Potassium - hyperkalemia - will modulate with 2K bath in TECHNICAL SALES ASSOCIATE -Sodium -135- stable 3. Volume status: -hypervolemic - BP 129/80 -Midodrine - Pre weight : 113.0 Kg 4. Acid-base: - AGMA - will modulate with TECHNICAL SALES ASSOCIATE 5. Ca/P/Pth/Bone mineral disease: - Sevelamer with meals. Sensipar daily and Calcitriol on dialysis days -previous punch bx in 2022 was not consistent with calciphylaxis 6. Anemia of CKD below goal, high ferritin PLAN: - HD today 3.45 hr F250, Qb400, UF 4L - next session Friday () - EDW 114kg - continue Aranesp QMonday - nephrocaps - renvela with meals Consent for TECHNICAL SALES ASSOCIATE: ESRD Standard ESRD recommendations and precautions: - DAILY phos please - Strict IANDOs and Daily weight - Consider a RENAL Diet for HD patients - Fluid restriction < 1 L - Start Nephrocap or other renal multivitamin to replace water-soluble vitamins lost during dialysis - Avoid Lovenox, Demerol, Morphine, K-containing IVF, Mg- or Phos- containing enemas -Dose meds eGFR<10 Consent for TECHNICAL SALES ASSOCIATE: ESRD Outpatient dialysis disposition plan: contact [phone] and ask to speak with the help desk consultant as needed for assistance with post-discharge arrangements. Please DO NOT schedule patient for a nephrology follow up appointment. Kidney care will be provided by the primary member of technical staff at their dialysis unit upon hospital discharge. Vickie Durham APRN.[facility] Nephrology and Hypertension [facility] October 18, 2024 2:12 PM PAGER # [phone] Disclosures: Parts of the current progress note may have been copied from a previous note. FOR AFTER HOUR CONCERNS BETWEEN 5PM - 7AM CONTACT ON-CALL NEPHROLOGY FELLOW [phone] THERAPY NT Observed: 10/18/2024 12:00 PM Status: COMPLETED Source: [facility] ID: [id number] Author: NAVARRO CHOW OTR/L, OTD Service: Occupational Therapy Author Type: Occupational Therapist Type: Therapy (PT/OT/Speech/Resp) Filed: 10/18/2024 12:00 Note Text: OCCUPATIONAL THERAPY MISSED VISIT SERVICE DATE: 10/18/2024 SERVICE TIME: 1200 ROOM: [place] [address] (Formerly [facility], Later [facility]) Patient not seen due to Test / Procedure (HD). SIGNATURE: MARION Mckeon OTD PATIENT NAME: Elia Weston DATE: October 18, 2024 TIME: 12:00 PM THERAPY NT Observed: 10/18/2024 11:55 AM Status: COMPLETED Source: [facility] ID: [id number] Author: MARÍA ESPARZA, PT, DPT Service: Physical [...] DIAGNOSIS Reduced mobility-other TREATMENT INTERVENTIONS Gait Training (28883), Therapeutic Exercise (39818) Timed Code Treatment (minutes): 24 Skilled Treatment [...] Observed: 10/18/2024 10:00 AM Status: COMPLETED Source: [facility] ID: [id number] Author: LOLY GREWAL Art Therapist Service: Art [...] appreciated. Pt sitting in bedside chair as public relations writer introduced self and services. Pt with bright affect, warmly welcomed public relations writer in sharing interest in art therapy [...] family ( and 2 sons). Pt thanked public relations writer for session and time and denied additional needs at this time. Welcomed return pending length of admission. Will follow up as able. SIGNATURE: Loly Grewal, Art Therapist PATIENT NAME: Elia Weston DATE: October 18, 2024 TIME: 12:28 PM PAGER/CONTACT #: [phone] CBC PNL BLD AUTO Collected: 5 7:46 AM Status: F Source: [facility] Order Comment: Specimen Type : BLOOD SPECIMEN Ordering Facility: [facility] Address: [address] [place] [address] TYPE CODE TESTS RESULT OUT OF RANGE [...] RBC Auto-mCnc 29.1 Low 30.5-36.0 g/dL LAB 36053-5(LOINC) RDW RBC-Rto 18.6 High 11.5-15.0 % LAB 777-3(LOINC) Platelet # Bld Auto 266 150-400 k/uL LAB 75982-1(LOINC) PMV Bld Auto 10.8 9.0-12.7 fL LAB 771-6(LOINC) nRBC # Bld Auto <0.01 <0.01 k/uL Performed By: #### 00198-6 # ### [facility] CLIA [id number] [address] [place] [address] [place] PT PNL PPP Collected: 10/18/2024 7:46 AM Status: F Source: [facility] Order Comment: Specimen Type : BLOOD SPECIMEN Ordering Facility: [facility] Address: [address] [place] [address] TYPE CODE TESTS RESULT OUT OF RANGE REFERENCE UNITS LAB 5902-2(LOINC) Prothrombin time 20.2 High 9.7-13.0 sec LAB 6301-6(LOINC) INR PPP 2.0 High 0.9-1.3 Result Comment: Vitamin K An tagonist (VKA) Therapeutic Range: INR 2 to 3 (Target INR of 2.5) Note: For patients treated with VKA drugs, such as warfarin, the [place] College of [employer]icians 2012 Guideline recommends [...] JACC 2017, 70: 252-289 Performed By: #### 01635-4, PTTAC #### [facility] CLIA [id number] [address] [place] [address] [place] PTT, ANTICOAGULANT THERAPY Collected: 0 10/18/2024 7:46 AM Status: F Source: [facility] Order Comment: Specimen Type : BLOOD SPECIMEN Ordering Facility: [facility] Address: [address] [place], [place] [address] TYPE CODE TESTS RESULT OUT OF RANGE REFERENCE UNITS LAB 97064-1(LOINC) aPTT PPP 78.3 High 23.0-32.4 sec Performed By: #### 29207-3, PTTAC #### [facility] CLIA [id number] [address] [place] [address] [id number] [id number] [place] BAS METAB 2000 PNL SERPL Collected: 7:46 AM Status: F Source: [facility] Order Comment: Specimen Type : BLOOD SPECIMEN Ordering Facility: [facility] Address: [address] [place] [address] TYPE CODE TESTS RESULT OUT OF RANGE REFERENCE UNITS LAB 2345-7(LOINC) Glucose SerPl-mCnc 74 74-99 mg/dL Result Comment: The [place] Diabetes Association (ADA) provides guidance for cutoff [...] Standards of Medical Care in Diabetes 2016, [place] Diabetes Association. Diabetes Care. 2016.39(Suppl 1). LAB 3094-0(LOINC) BUN SerPl-mCnc 42 High 9-24 mg/ dL LAB 2160-0(LOINC) Creat SerPl-mCnc 10.08 High 0.73-1.22 mg/dL LAB 2951-2(LOINC) Sodium SerPl-sCnc 135 Low 136-144 mmol/L LAB 2823-3(LOINC) Potassium SerPl-sCnc 6.0 High 3.7-5.1 mmol/L LAB 2075-0(LOINC) Chloride SerPl-sCnc 95 Low 98-107 mmol/L LAB 2028-9(LOINC) CO2 SerPl-sCnc 23 22-30 mmo l/L LAB 47883-6(LOINC) Anion Gap SerPl-sCnc 17 High 8-15 mmol/L LAB 44620-5(LOINC) Calcium SerPl-mCnc 8.0 Low 8.5-10.2 mg/dL LAB 35348-0(LOINC) Creatinine + eGFR Pnl SerPlBld 6 Low [...] accurately reflect actual GFR. Performed By: #### 84371-2 # ### [facility] CLIA [id number] [address] [place] [address] PT ED Observed: 10/18/2024 7:20 AM Status: COMPLETED Source: [facility] ID: [id number] Author: SANA DOMINGUEZ RPh Service: Pharmacy Author [...] Observed: 5 8:23 PM Status: F Source: [facility] * * *Final Report* * * DATE OF EXAM: Oct 17 2024 8:23PM [facility] 0134 - CTA [...] pubis likely related to chronic kidney disease. Network Relations Consultant (topogram) images: No additional findings. IMPRESSION: Redemonstrated [...] common iliac vein consistent with stenotic disease. Market Relationship Manager: PSCB Transcribe Date/Time: Oct 18 2024 10:49A Dictated by : RM BIRD MD This examination was interpreted and the report reviewed and electronically signed by: RM BIRD MD on Oct 18 2024 11:16AM EST [id number] [id number] Observed: 10/17/2024 1:43 PM Status: COMPLETED Source: [facility] ID: [id number] Author: MATA BRIGGS MD Service: Hospital Medicine Author Type: Physician Type: Progress Notes Filed: 10/17/2024 13:46 Note Text: DEPARTMENT OF HOSPITAL MEDICINE PROGRESS NOTE SERVICE DATE: 10/17/2024 SERVICE TIME: 1:43 PM Hospital Medicine/Primary Attending: Mata Briggs MD NIGHT AND WEEKEND COVERAGE: [facility] COVERAGE: Days: [phone], please page Mata Briggs for patient issues. Nights: [phone], please page Team GIM 1: G/H 8th floor: [address]64; Non 8th floor [address] Subjective INTERVAL HPI: Feeling well overall without [...] Left Femoral 12 days Peripheral 10/12/24 0530 [facility] Short Right Forearm 20 Gauge 5 days Peripheral 10/16/24 1330 [facility] Short Left Forearm 20 Gauge 1 day [...] ESRD (end stage renal disease) on dialysis ([facility]) HTN (hypertension) YEIMY (obstructive sleep apnea) 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 Personal history of DVT (deep vein thrombosis) PAF (paroxysmal atrial fibrillation) ([facility]) History of stroke Hypotension, chronic Anemia due to stage 5 chronic kidney disease, not on chronic dialysis ([facility]) ([facility]) Status post Maze operation for atrial fibrillation Skin ulcer, limited to breakdown of skin ([facility]) SVC syndrome Generalized weakness Impaired functional mobility, balance, gait, and endurance HOSPITAL COURSE: Justine Weston is a 44 year old male with h/o atrial fibrillation and severe mitral stenosis s/p mitral valve replacement with On-x valve, Maze procedure and RADHA clip on 08/21/2021, currently on Coumadin, ESRD on IHD via left femoral vein TDC on [facility] ), SVC syndrome as a complication of [...] -- 10/12/24 1111 activity - mobilize patient (nv,oh) VTE Prophylaxis: VTE prophylaxis appropriate Disposition: SNF, [facility] assistance Plan of care discussed with Provider, RN, Patient SIGNATURE: Mata Briggs MD PATIENT NAME: Elia Weston BAS METAB 2000 PNL SERPL Collected: 8:40 AM Status: F Source: [facility] Order Comment: Specimen Type : BLOOD SPECIMEN Ordering Facility: [facility] Address: [address] [place] [address] TYPE CODE TESTS RESULT OUT OF RANGE REFERENCE UNITS LAB 2345-7(LOINC) Glucose SerPl-mCnc 77 74-99 mg/dL Result Comment: The [place] Diabetes Association (ADA) provides guidance for cutoff [...] Standards of Medical Care in Diabetes 2016, [place] Diabetes Association. Diabetes Care. 2016.39(Suppl 1). LAB 3094-0(LOINC) BUN SerPl-mCnc 35 High 9-24 mg/ dL LAB 2160-0(LOINC) Creat SerPl-mCnc 8.35 High 0.73-1.22 mg/dL LAB 2951-2(LOINC) Sodium SerPl-sCnc 137 136-144 mmol/L LAB 2823-3(LOINC) Potassium SerPl-sCnc 5.3 High 3.7-5.1 mmol/L LAB 2075-0(LOINC) Chloride SerPl-sCnc 95 Low 98-107 mmol/L LAB 2028-9(LOINC) CO2 SerPl-sCnc 22 22-30 mmo l/L LAB 76725-3(LOINC) Anion Gap SerPl-sCnc 20 High 8-15 mmol/L LAB 17576-3(LOINC) Calcium SerPl-mCnc 8.5 8.5-10.2 mg/dL LAB 11766-8(LOINC) Creatinine + eGFR Pnl SerPlBld 8 Low [...] accurately reflect actual GFR. Performed By: #### 60303-6 # ### [facility] CLIA [id number] [address] [place] [address] [place] CBC PNL BLD AUTO Collected: 5 8:40 AM Status: F Source: [facility] Order Comment: Specimen Type : BLOOD SPECIMEN Ordering Facility: [facility] Address: [address] [place] [address] TYPE CODE TESTS RESULT OUT OF RANGE [...] RBC Auto-mCnc 29.9 Low 30.5-36.0 g/dL LAB 25640-5(LOINC) RDW RBC-Rto 18.5 High 11.5-15.0 % LAB 777-3(LOINC) Platelet # Bld Auto 241 150-400 k/uL LAB 36968-3(LOINC) PMV Bld Auto 10.9 9.0-12.7 fL LAB 771-6(LOINC) nRBC # Bld Auto <0.01 <0.01 k/uL Performed By: #### 76000-1 # ### [facility] CLIA [id number] [address] [place] [address] [place] PTT, ANTICOAGULANT THERAPY Collected: 0 10/17/2024 7:30 AM Status: F Source: [facility] Order Comment: Specimen Type : BLOOD SPECIMEN Ordering Facility: [facility] Address: [address] [place] [address] TYPE CODE TESTS RESULT OUT OF RANGE REFERENCE UNITS LAB 02683-1(LOINC) aPTT PPP 70.3 High 23.0-32.4 sec Performed By: #### 33523-7, PTTAC #### [facility] CLIA [id number] [address] [place] [address] [place] PT PNL PPP Collected: 10/17/2024 7:30 AM Status: F Source: [facility] Order Comment: Specimen Type : BLOOD SPECIMEN Ordering Facility: [facility] Address: [address] [place] [address] TYPE CODE TESTS RESULT OUT OF RANGE REFERENCE UNITS LAB 5902-2(LOINC) Prothrombin time 18.0 High 9.7-13.0 sec LAB 6301-6(LOINC) INR PPP 1.7 High 0.9-1.3 Result Comment: Vitamin K An tagonist (VKA) Therapeutic Range: INR 2 to 3 (Target INR of 2.5) Note: For patients treated with VKA drugs, such as warfarin, the [place] College of Chest Physicians 2012 Guideline recommends [...] Chest 2012, 141:7S-47S Kevin RA, et al. [facility] 2017, 70: 252-289 Performed By: #### 70529-4, PTTAC #### [facility] CLIA [id number] [address] [place] [address] [place] PROGRESS Observed: 10/16/2024 3:12 PM Status: COMPLETED Source: [facility] ID: [id number] Author: MATA BRIGGS MD Service: Hospital Medicine Author Type: Physician Type: Progress Notes Filed: 10/16/2024 15:22 Note Text: DEPARTMENT OF HOSPITAL MEDICINE PROGRESS NOTE SERVICE DATE: 10/16/2024 SERVICE TIME: 3:12 PM Hospital Medicine/Primary Attending: Mata Briggs MD NIGHT AND WEEKEND COVERAGE: [facility] COVERAGE: Days: [phone], please page Mata Briggs for patient issues. Nights: [phone], please page Team GIM 1: G/H 8th floor: [address]; Non 8th floor [address] Subjective INTERVAL HPI: Feeling well overall without [...] Left Femoral 11 days Peripheral 10/12/24 0530 [facility] Short Right Forearm 20 Gauge 4 days [...] ESRD (end stage renal disease) on dialysis ([facility]) HTN (hypertension) YEIMY (obstructive sleep apnea) 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 Personal history of DVT (deep vein thrombosis) PAF (paroxysmal atrial fibrillation) ([facility]) History of stroke Hypotension, chronic Anemia due to stage 5 chronic kidney disease, not on chronic dialysis ([facility]) ([facility]) Status post Maze operation for atrial fibrillation Skin ulcer, limited to breakdown of skin ([facility]) SVC syndrome Generalized weakness Impaired functional mobility, balance, gait, and endurance HOSPITAL COURSE: Justine Weston is a 44 year old male with h/o atrial fibrillation and severe mitral stenosis s/p mitral valve replacement with On-x valve, Maze procedure and RADHA clip on 08/21/2021, currently on Coumadin, ESRD on IHD via left femoral vein TDC on MWF([facility] ), SVC syndrome as a complication of [...] hemodialysis via left femoral vein TDC on [facility] SVC syndrome-multiple right and left IJ [...] -- 10/12/24 1111 activity - mobilize patient (nv,oh) VTE Prophylaxis: VTE prophylaxis appropriate Disposition: SNF, [facility] assistance Plan of care discussed with Provider, RN, Patient SIGNATURE: Mata Briggs MD PATIENT NAME: Elai Weston DATE: October 16, 2024 TIME: 3:12 PM PROGRESS Observed: 10/16/2024 3:12 PM Status: COMPLETED Source: [facility] ID: [id number] Author: MATA BRIGGS MD Service: Hospital Medicine Author Type: Physician Type: Progress Notes Filed: 10/16/2024 15:12 Note Text: Documentation Query Morbid Obesity with YEIMY PROGRESS Observed: 10/16/2024 3:11 PM Status: COMPLETED Source: [facility] ID: [id number] Author: MATA BRIGGS MD Service: Hospital Medicine Author Type: Physician Type: Progress Notes Filed: 10/16/2024 15:11 Note Text: Documentation Query ESRD This document will become part of the patient's medical record. CBC PNL BLD AUTO Collected: 5:28 AM Status: F Source: [facility] Order Comment: Specimen Type : BLOOD SPECIMEN Ordering Facility: [facility] Address: [address] [place] [address] TYPE CODE TESTS RESULT OUT OF RANGE [...] RBC Auto-mCnc 29.5 Low 30.5-36.0 g/dL LAB 20307-4(LOINC) RDW RBC-Rto 18.2 High 11.5-15.0 % LAB 777-3(LOINC) Platelet # Bld Auto 248 150-400 k/uL LAB 48426-5(INC) PMV Bld Auto 11.0 9.0-12.7 fL LAB 771-6(LOINC) nRBC # Bld Auto <0.01 <0.01 k/uL Performed By: #### 55432-8 # ### [facility] CLIA [id number] [address] [place] PTT, ANTICOAGULANT THERAPY Collected: 0 10/16/2024 5:28 AM Status: F Source: [facility] Order Comment: Specimen Type : BLOOD SPECIMEN Ordering Facility: [facility] Address: [address] [place] [address] TYPE CODE TESTS RESULT OUT OF RANGE REFERENCE UNITS LAB 81998-9(LOINC) aPTT PPP 73.7 High 23.0-32.4 sec Performed By: #### 52174-3, PTTAC #### [facility] CLIA [id number] [address] [place] [address] [place] PT PNL PPP Collected: 10/16/2024 5:28 AM Status: F Source: [facility] Order Comment: Specimen Type : BLOOD SPECIMEN Ordering Facility: [facility] Address: [address] [place] [address] TYPE CODE TESTS RESULT OUT OF RANGE REFERENCE UNITS LAB 5902-2(LOINC) Prothrombin time 15.9 High 9.7-13.0 sec LAB 6301-6(LOINC) INR PPP 1.5 High 0.9-1.3 Result Comment: Vitamin K An tagonist (VKA) Therapeutic Range: INR 2 to 3 (Target INR of 2.5) Note: For patients treated with VKA drugs, such as warfarin, the [place] College of Chest Physicians 2012 Guideline recommends [...] Chest 2012, 141:7S-47S Kevin RUSHING et al. [facility] 2017, 70: 252-289 Performed By: #### 78391-9, PTTAC #### [facility] CLIA [id number] [address] [place] [address] [place] BAS METAB 2000 PNL SERPL Collected: 5:28 AM Status: F Source: [facility] Order Comment: Specimen Type : BLOOD SPECIMEN Ordering Facility: [facility] Address: [address] [place] [address] TYPE CODE TESTS RESULT OUT OF RANGE REFERENCE UNITS LAB 2345-7(LOINC) Glucose SerPl-mCnc 88 74-99 mg/dL Result Comment: The [place] Diabetes Association (ADA) provides guidance for cutoff [...] Standards of Medical Care in Diabetes 2016, [place] Diabetes Association. Diabetes Care. 2016.39(Suppl 1). LAB 3094-0(LOINC) BUN SerPl-mCnc 20 9-24 mg/ dL LAB 2160-0(LOINC) Creat SerPl-mCnc 6.04 High 0.73-1.22 mg/dL LAB 2951-2(LOINC) Sodium SerPl-sCnc 137 136-144 mmol/L LAB 2823-3(LOINC) Potassium SerPl-sCnc 4.5 3.7-5.1 mmol/L LAB 2075-0(LOINC) Chloride SerPl-sCnc 95 Low 98-107 mmol/L LAB 2028-9(LOINC) CO2 SerPl-sCnc 26 22-30 mmo l/L LAB 59948-7(LOINC) Anion Gap SerPl-sCnc 16 High 8-15 mmol/L LAB 47278-7(LOINC) Calcium SerPl-mCnc 9.0 8.5-10.2 mg/dL LAB 72232-6(LOINC) Creatinine + eGFR Pnl SerPlBld 11 Low [...] accurately reflect actual GFR. Performed By: #### 00557-7 # ### [facility] CLIA [id number] [address] [place] [address] PTT, ANTICOAGULANT THERAPY Collected: 0 10/15/2024 10:30 PM Status: F Source: [facility] Order Comment: Specimen Type : BLOOD SPECIMEN Ordering Facility: [facility] Address: [address] [place] [address] TYPE CODE TESTS RESULT OUT OF RANGE REFERENCE UNITS LAB 61658-8(LOINC) aPTT PPP 59.0 High 23.0-32.4 sec Performed By: #### PTTAC ### # [facility] CLIA [id number] [address] [place] [address] PROGRESS Observed: 10/15/2024 7:21 PM Status: COMPLETED Source: [facility] HNO ID: [id number] Author: PACO GARDUNO MD Service: General Internal Medicine Author Type: Physician Type: Progress Notes Filed: 10/15/2024 19:32 Note Text: DEPARTMENT OF HOSPITAL MEDICINE PROGRESS NOTE SERVICE DATE: 10/15/2024 SERVICE TIME: 11:40 am Hospital Medicine/Primary Attending: Paco Garduno MD NIGHT AND WEEKEND COVERAGE: [facility] COVERAGE: Days: [phone], please page Paco Garduno for patient issues. Nights: [phone], please page Team GIM 1: G/H 8th floor: [address]60; Non 8th floor [phone] Subjective INTERVAL HPI: Discussed with patient twice [...] Left Femoral 10 days Peripheral 10/12/24 0530 [facility] Short Right Forearm 20 Gauge 3 days Peripheral 10/12/24 0951 Left Forearm 22 Gauge 3 days DATA: Diagnostic tests reviewed for today's visit: Most recent labs Most recent imaging Assessment/Plan Problem List Assessment AND Plan Dialysis patient ([facility]) ESRD (end stage renal disease) on dialysis ([facility]) HTN (hypertension) YEIMY (obstructive sleep apnea) 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 Personal history of DVT (deep vein thrombosis) PAF (paroxysmal atrial fibrillation) ([facility]) History of stroke Hypotension, chronic Chronic pain syndrome Anemia due to stage 5 chronic kidney disease, not on chronic dialysis ([facility]) ([facility]) Status post Maze operation for atrial fibrillation Skin ulcer, limited to breakdown of skin ([facility]) SVC syndrome Generalized weakness Impaired functional mobility, balance, gait, and endurance HOSPITAL COURSE: Elia Weston is a 44 year old male with h/o atrial fibrillation and severe mitral stenosis s/p mitral valve replacement with On-x valve, Maze procedure and RADHA clip on 08/21/2021, currently on Coumadin, ESRD on IHD via left femoral vein TDC on [facility] SVC syndrome as a complication [...] hemodialysis via left femoral vein TDC on [facility] 4. SVC syndrome-multiple right and left [...] -- 10/12/24 1111 activity - mobilize patient (nv,ct) VTE Prophylaxis: VTE prophylaxis appropriate Disposition: To be determined Plan of care discussed with Provider, RN, Patient SIGNATURE: Paco Garduno MD PATIENT NAME: Elia Weston DATE: October 15, 2024 TIME: 11:40 am CASE MANAGEM Observed: 10/15/2024 4:23 PM Status: COMPLETED [facility] [id number] Author: EILEEN PERALTA RN Service: Care Management Author Type: Registered Nurse Type: Care Mgt Progress Note Filed: 10/15/2024 16:27 Note Text: CARE MANAGEMENT PROGRESS NOTE NO WEEKEND DISCHARGE SERVICE DATE: 10/15/2024 SERVICE TIME: 4:23 PM LOS: 3 days Needs Prior to Discharge: To Be Determined;Accepting Facility;Bed Availability;Insurance Authorization;Discharge Transportation;Wound Care [place] of Choice Given: Yes Level of Care Discussed: Shelter Facility Provider List: Shelter Facility Provider list within the patient's requested geographic area shared with the patient/family: Yes of zip code: (Per request of patient, search in this local area) Pending medical stability. PMANDR recommending SNF. Patient in agreement. Accepting SNF list provided, [facility] and [facility]. Patient to consider FOC. Will need in authorization. CM to follow. SIGNATURE: Eileen Peralta RN PATIENT NAME: Elia Weston DATE: October 15, 2024 TIME: 4:23 PM THERAPY NT Observed: 10/15/2024 3:52 PM Status: COMPLETED Source: [facility] ID: [id number] Author: RENÉE MARTINES, PT, DPT Service: Physical Therapy Author Type: Physical Therapist Type: Therapy (PT/OT/Speech/Resp) Filed: 10/15/2024 15:57 Note Text: Physical Therapy Treatment Summary SERVICE DATE: 10/15/2024 SERVICE TIME: 1508 to 1552 ROOM: [place] [address] PT 6 Clicks Score: 18 DISCHARGE RECOMMENDATIONS [...] DIAGNOSIS Reduced mobility-other TREATMENT INTERVENTIONS Gait Training (25247), Therapeutic Activity (34936), Therapeutic Exercise (33319) Timed Code Treatment (minutes): 40 Skilled Treatment [...] PATHOLOGY Collected: 2:17 PM Status: F Source: [facility] Comment: Specimen Type : TISSUE SPECIMEN Ordering Facility: [facility] Address: [address] [place] [address] TYPE CODE TESTS RESULT OUT OF RANGE REFERENCE UNITS PATHOLOGY [id number] CASE REPORT Result Comment: Surgical Pat hology Report Case: [id number] Authorizing Provider: Paco Garduno MD Collected: 10/15/2024 02:17 PM Ordering Location: [place] [address] Received: 10/15/2024 04:57 PM Pathologist: Jarvis Saucedo MD, PhD Specimen: Skin, Punch Biopsy, A. chest, r/o chronic ischemia-induced ulceration vs infection vs less likely PG vs calci PATHOLOGY [id number] FINAL DIAGNOSIS Result Comment: A. Skin, herminio st, punch biopsy: - Dermal fibrosis and reactive vascular proliferation, see comment. APF/dkm 10/18/2024 OLOGY [id number] DIAGNOSIS COMMENT Result Comment: Histologic s ections [...] proliferation, immunohistochemical staining is performed at the [facility] on block A1 with appropriate controls. [...] been determined by the performing laboratory within [facility]???s Harley Dunlap Pathology and Laboratory Medicine Department ([facility], [facility], [facility], [facility], [facility], [facility], or [facility]) in a manner consistent with CLIA requirements. One or more of these tests have not been cleared or approved by the FDA. [facility] is regulated under CLIA as qualified to perform high-complexity testing. These tests are used for clinical purposes. They should not be regarded as investigational or for research. Positive and negative controls stain appropriately. PATHOLOGY [id number] GROSS DESCRIPTION Result Comment: A. Skin, Pun ch Biopsy Received in formalin is a cylindrical segment of skin and subcutaneous tissue measuring 0.4 x 0.4 x 0.4 cm. On the skin surface there is a 0.4 cm, echeverria-white to brown, slightly elevated and irregularly shaped area. The specimen is bisected. Totally submitted in one cassette. [facility] October 15, 2024 5:57 PM Gross examination performed at [facility], [address] [place] [address] PATHOLOGY CDX2 CLINICAL HISTORY Hx of ulcerations with prior bx 2022 [id number] PATHOLOGY FPLAB FINAL PERFORMING LAB Result Comment: Diagnostic i nterpretation performed at: [facility], [address] [place] [address] CLIA# [id number] Adjunct Psychology Faculty Member: Bud Grimm MD Performed By: #### S #### [facility] CLIA [id number] [address] [place] [address] [place] BACTERIA TISS CULT Observed: 10/15/2024 2:17 PM Status: F Source: [facility] CULTURE, TISSUE: No growth GRAM STAIN: No organisms seen No Polymorphonuclear Leukocytes Performed By: #### 45353-3 # ### [facility] CLIA [id number] [address] [place] [address] [place] #### 51242-5, 68915-8, 635-3 #### [facility] CLIA [id number] [address] [place] [address] [place] BACTERIA SPEC ANAEROBE CULT Observed: 10/15/2024 2:17 PM Status: F Source: [facility] CULTURE, ANAEROBE: Negative for anaerobes. Performed By: #### 15103-3 # ### [facility] CLIA [id number] [address] [place] [address] [place] #### 67175-5, 07615-1, 635-3 #### [facility] CLIA [id number] [address] [place] [address] [place] MICROORGANISM SPEC CULT Observed: 2024 2:17 PM Status: F Source: [facility] CULTURE, FUNGAL: No Fungus isolated after 28 days FUNGAL SMEAR: No fungus seen Performed By: #### 62677-2 # ### [facility] CLIA [id number] [address] [place] [address] [place] #### 81227-4, 55981-5, 635-3 #### [facility] CLIA [id number] [address] [place] [address] [place] MICROORGANISM SPEC CULT Observed: 2024 2:17 PM Status: F Source: [facility] CULTURE, AFB: No Acid Fast Bacilli isolated after 42 days AFB STAIN: No acid fast bacilli seen by fluorochrome stain Performed By: #### 93119-0 # ### [facility] CLIA [id number] [address] [place] [address] [place] #### 83363-6, 62689-8, 635-3 #### [facility] CLIA [id number] [address] [place] [address] [place] PTT, ANTICOAGULANT THERAPY Collected: 0 10/15/2024 1:35 PM Status: F Source: [facility] Order Comment: Specimen Type : BLOOD SPECIMEN Ordering Facility: [facility] Address: [address] [place] [address] TYPE CODE TESTS RESULT OUT OF RANGE REFERENCE UNITS LAB 67905-9(LOINC) aPTT PPP 78.9 High 23.0-32.4 sec Performed By: #### PTTAC ### # [facility] CLIA [id number] [address] [place] [address] [place] CONSULT PROG Observed: 10/15/2024 11:30 AM Status: COMPLETED Source: [facility] HNO ID: [id number] Author: CAMILO NORTON PA-C Service: Nephrology Author Type: Physician Mannequin Mold Maker Type: Consult Progress Note Filed: 10/15/2024 11:33 Note Text: Department of Kidney Medicine Medical Specialties [place] [facility] NEPHROLOGY CONSULT SERVICE PROGRESS NOTE INTERVAL [...] Left Femoral 10 days Peripheral 10/12/24 0530 [facility] Short Right Forearm 20 Gauge 3 days [...] weight. ESRD Hx First HD: 2005 Unit: [facility] Loading Dock Hand: Dr. Melendez Days: EDW: 114kg Access: L [...] nephrocaps - renvela with meals Consent for TECHNICAL SALES ASSOCIATE: ESRD Camilo Norton PA-C Department of Kidney Medicine [facility] October 15, 2024 11:30 AM PAGER # [phone] Disclosures: Parts of the current progress note may have been copied from a previous note. FOR AFTER HOUR CONCERNS BETWEEN 5PM - 7AM CONTACT ON-CALL NEPHROLOGY FELLOW [phone] CONSULT Observed: 10/15/2024 9:56 AM Status: COMPLETED Source: [facility] HNO ID: [id number] Author: KERRIE BIGGS APRN.CNP Service: Interventional Radiology [...] (HCC) 2005 ESRD from HTN Dialysis M,W,F [facility] [phone] Essential hypertension, benign 1998 EKG 09/30 NL. [...] jacket, goes to wound care center in [place] PAST SURGICAL HISTORY Procedure Laterality Date ARTERIOVENOUS FISTULA Left 08/29/2010 CAPSULE ENDOSCOPY 07/01/2023 CARDIOVERSION-ELECTIVE N/A 12/03/2018 200 joules synchronized - successful COLONOSCOPY 07/01/2023 EGD 06/27/2023 HERNIA REPAIR HX PAST SURGICAL HISTORY OF 08/29/2010 dialysis fistula left arm PAST SURGICAL HISTORY OF Right 03/2019 Right leg femoral vein to superficial femoral artery loop graft mid thigh REPAIR CLEFT LIP RMVL LEANN CVC W/O SUBQ PORT/BANQUET STEWARDESS 01/17/2013 SHX CARDIAC RADIOFREQUENCY ABLATION 08/21/2021 s/p [...] maintaining vascular access. Case reviewed by: Dr. eD Anda. Thank you for the opportunity to participate in the care of this patient. The IR team acknowledges your request and will address it as soon as possible. Please call [phone] if we can be of immediate assistance. For after hour concerns between 4:00PM-7:00AM contact on-call IR fellow/resident, pager [phone]. SIGNATURE: Kerrie Biggs APRN.CNP PATIENT NAME: Elia Weston DATE: October 15, 2024 TIME: 9:57 AM CONSULT PROG Observed: 10/15/2024 9:42 AM Status: COMPLETED Source: [facility] HNO ID: [id number] Author: AVIS LUNDY MD Service: Dermatology Author [...] were performed on block A1 at the [facility] and compared to appropriate controls. A [...] follow Patient seen and discussed with attending price checker, Dr. Conor Lackey MD Dermatology, PGY-4 October 15, 2024 9:42 AM Please use consult pager [phone], Mon-Fri 8am-5pm. Please call electric truck crane operator for on-call resident/pager during all other [...] Observed: 10/15/2024 9:17 AM Status: COMPLETED Source: [facility] HNO ID: [id number] Author: HEIDY SIMMONS APRN.CNP Service: Physical Medicine [...] Subjective PATIENT'S HOME ADDRESS: [address] [place] [address] HISTORY: Elia Weston is a 44 year old male whose current [facility] admission dates to 10/12/2024. History notes that he was admitted on that date through the hospital ED. Mr. Weston is being seen at the request of Dr. Garduno, the [facility] physician of record. HPI/CHIEF COMPLAINT: Current location: [...] ESRD (end stage renal disease) on dialysis ([facility]) 2005 ESRD from HTN Dialysis M,W,F [facility] [phone] Essential hypertension, benign 1998 EKG 09/30 NL. [...] Paroxysmal atrial fibrillation (HCC) PE (pulmonary thromboembolism) ([facility]) Pelvic mass Pseudoaneurysm of AV hemodialysis fistula ([facility]) Wound of right side of back from friction/rubbing of jacket, goes to wound care center in [place] PAST SURGICAL HISTORY Procedure Laterality Date ARTERIOVENOUS FISTULA Left 08/29/2010 CAPSULE ENDOSCOPY 07/01/2023 CARDIOVERSION-ELECTIVE N/A 12/03/2018 200 joules synchronized - successful COLONOSCOPY 07/01/2023 EGD 06/27/2023 HERNIA REPAIR HX PAST SURGICAL HISTORY OF 08/29/2010 dialysis fistula left arm PAST SURGICAL HISTORY OF Right 03/2019 Right leg femoral vein to superficial femoral artery loop graft mid thigh REPAIR CLEFT LIP RMVL LEANN CVC W/O SUBQ PORT/BANQUET STEWARDESS 01/17/2013 SHX CARDIAC RADIOFREQUENCY ABLATION 08/21/2021 s/p [...] Esrd (End Stage Renal Disease) On Dialysis ([facility]) Htn (Hypertension) Obesity Epigastric Pain Mechanical Complication of Other Vascular Device, Implant, and Graft Right Knee Pain Obesity, Morbid, Bmi 40.0-49.9 ([facility]) Tendinitis of Left Shoulder Mass of Left Thigh Thigh Pain Hematuria Dialysis Patient ([facility]) Yeimy (Obstructive Sleep Apnea) Abdominal Or Pelvic Swelling, Mass, Or Lump, Right Lower Quadrant Secondary Hyperparathyroidism of Renal Origin ([facility]) Renal Osteodystrophy Hyperphosphatemia Due to Chronic Kidney Disease Groin Pain Personal History of Dvt (Deep Vein Thrombosis) Sprain of Medial Collateral Ligament of Right Knee Esrd (End Stage Renal Disease) ([facility]) Paf (Paroxysmal Atrial Fibrillation) ([facility]) A-V Fistula ([facility]) Anemia of Chronic Disease Blind Left Eye End-Stage Renal Disease On Hemodialysis ([facility]) Expressive Dysphasia History of Endocarditis Hearing Loss History of Non-St Elevation Myocardial Infarction (Nstemi) Heart Failure, Unspecified ([facility]) Iron Deficiency Anemia, Unspecified Chronic Anticoagulation Mitral Valve Disease Myocardial Infarction ([facility]) Noncompliance With Medication Regimen Paroxysmal Atrial Flutter ([facility]) Pulmonary Embolism ([facility]) Pulmonary Edema Stenosis of Other Vascular Prosthetic Devices, Implants and Grafts, Initial Encounter ([facility]) Unspecified Atherosclerosis of [place] Arteries of Extremities, Right Leg ([facility]) Vitamin D Deficiency, Unspecified Open Wound of Right Side of Back History of Stroke Hypotension, Chronic Falls Mitral Valve Stenosis, Severe Mitral Stenosis Obesity, Class II, Bmi 35-39.9 Dental Caries S/P Mvr (Mitral Valve Replacement) Clotted Renal Dialysis Av Graft ([facility]) Chb (Complete Heart Block) ([facility]) Encounter for Support and Coordination of Transition of Care Abdominal Pain Near Syncope Acute Colitis Supratherapeutic Inr Anemia of Chronic Disorder Atrial Fibrillation ([facility]) Essential Hypertension, Benign Abdominal Wall Skin Ulcer, With Unspecified Severity ([facility]) Acute Blood Loss Anemia Melena Hypotension Adjustment Disorder With Depressed Mood Hyperkalemia Hyponatremia Metabolic Acidosis Anemia of Renal Disease Skin Pain Bleeding Ulcer Mssa Bacteremia Proximal Colon Ulcer Aftercare for Long-Term (Current) Use of Antibiotics Anemia Due to Chronic Kidney Disease, On Chronic Dialysis ([facility]) Mild Protein-Calorie Malnutrition ([facility]) Acquired Hypothyroidism 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 At Risk for Alteration in Skin Integrity Based On Alex Scale Score Venous Collateral Circulation Hypothyroidism H/O Mitral Valve Replacement With Mechanical Valve Hypocalcemia Due to Chronic Kidney Disease Chronic Pain Syndrome Uremia Jugular Vein Occlusion, Bilateral ([facility]) Arteriovenous Graft Stenosis, Sequela Open Abdominal Wall Wound Anemia Due to Stage 5 Chronic Kidney Disease, Not On Chronic Dialysis ([facility]) ([facility]) Status Post Maze Operation for Atrial Fibrillation Skin Ulcer, Limited to Breakdown of Skin ([facility]) Svc Syndrome PMANDR REVIEW OF SYSTEMS: General: Weakness: yes generalized, fatigued, decreased endurance, appetite/nutrition decreased, Fevers none currently Skin: chronic chest wall and abdominal wall wounds HEENT: Vision issues: glasses, reports h/o stroke in the past that affected his right eye Hearing problems: TOGIAK, no hearing aids currently but working on [...] risk for venous thromboembolism SIGNATURE: Heidy Simmons APRN.INDUSTRIAL TECHNOLOGIST PATIENT NAME: Elia Weston DATE: October 15, 2024 TIME: 9:17 AM CONSULT Observed: 10/15/2024 9:07 AM Status: COMPLETED Source: [facility] ID: [id number] Author: BAILEY BROWN PA-C Service: Pain Management Author Type: Physician Mannequin Mold Maker Type: Consults Filed: 10/15/2024 11:00 Note Text: [...] Weston is a 44 yo M from [place], [place] w/ a PMHx of anemia of [...] dialysis. PLAN: 1. Per PDMP report in [facility], Mr. Weston has been prescribed chronic opioid therapy (COT) consisting of oxycodone IR 10 mg # 90 tabs x 30 days (30 mg/day oxycodone) prescribed monthly primarily by Sagar Ojeda since at least 06/09/2023 w/ most recent Rx dispensed on 09/17/2024. Please refer to the PDMP tab in [facility] and under [place] tab below HPI for [...] inpatient, could also consider consultation to Healing Services/Door Assembler Services and/or Art and/or Music Therapy and/or [...] # Dispenser Refill Daily Dose* Pymt Type BANQUET STEWARDESS 09/17/2024 09/17/2024 1 Oxycodone Hcl (Ir) 10 Mg Tab 90.00 30 Ca Bat [id number] Dis (1180) 0 45.00 [place] 09/14/2024 09/14/2024 1 Oxycodone-Acetaminophen 5-325 12.00 3 To Le 4278469 Dis (1180) 0 30.00 [place] 08/19/2024 08/18/2024 1 Oxycodone Hcl (Ir) 10 Mg Tab 90.00 30 Ca Bat [id number] Dis (1180) 0 45.00 [place] 08/14/2024 08/13/2024 1 Oxycodone Hcl (Ir) 10 Mg Tab 18.00 6 Ca Bat [id number] Dis (1180) 0 45.00 [place] 07/15/2024 05/18/2024 1 Oxycodone Hcl (Ir) 10 Mg Tab 90.00 30 Ca Bat [id number] Dis (1180) 0 45.00 [place] 06/16/2024 05/18/2024 1 Oxycodone Hcl (Ir) 10 Mg Tab 90.00 30 Ca Bat [id number] Dis (1180) 0 45.00 [place] 05/18/2024 05/18/2024 1 Oxycodone Hcl (Ir) 10 Mg Tab 90.00 30 Ca Bat [id number] Dis (1180) 0 45.00 [place] 03/17/2024 03/17/2024 1 Oxycodone Hcl (Ir) 10 Mg Tab 28.00 14 Ca Bat [id number] Dis (1180) 0 30.00 [place] 02/02/2024 11/28/2023 1 Oxycodone Hcl (Ir) 10 Mg Tab 90.00 30 Ca Bat [id number] Dis (1180) 0 45.00 [place] 01/02/2024 11/28/2023 1 Oxycodone Hcl (Ir) 10 Mg Tab 90.00 30 Ca Bat 1527476 Dis (1180) 0 45.00 [place] 12/30/2023 12/30/2023 1 Oxycodone Hcl (Ir) 10 Mg Tab 3.00 1 Em Bal [id number] [place] (2182) 0 45.00 [place] 11/28/2023 11/28/2023 1 Oxycodone Hcl (Ir) 10 Mg Tab 90.00 30 Ca Bat 8518413 Dis (1180) 0 45.00 [place] 11/14/2023 11/14/2023 1 Oxycodone Hcl (Ir) 5 Mg Tablet 42.[address] [id number] Dis (1180) 0 52.50 [place] 11/07/2023 11/07/2023 1 Oxycodone Hcl (Ir) 10 Mg Tab 12.00 7 Ca Bat 0740802 Dis (1180) 0 25.71 [place] 10/08/2023 10/08/2023 1 Oxycodone Hcl (Ir) 10 Mg Tab 90.00 30 Ca Bat [id number] Dis (1180) 0 45.00 MME Private Pay [place] Filled Written ID Drug QTY Days Prescriber RX # Dispenser Refill Daily Dose* Pymt Type BANQUET STEWARDESS 09/08/2023 09/08/2023 1 Oxycodone Hcl (Ir) 10 Mg Tab 90.00 30 Ca Bat [id number] Dis (1180) 0 45.00 [place] 08/04/2023 08/04/2023 1 Oxycodone Hcl (Ir) 10 Mg Tab 90.00 30 Ca Bat [id number] Dis (1180) 0 45.00 [place] 07/14/2023 07/14/2023 1 Oxycodone Hcl (Ir) 5 Mg Tablet 120.00 30 Ca Bat 0738497 Dis (1180) 0 30.00 [place] 07/11/2023 07/11/2023 2 Hydromorphone 2 Mg Tablet 10.00 5 Cl Fou [id number] José Miguel (6920) 0 20.00 [place] 06/09/2023 06/09/2023 1 Oxycodone Hcl (Ir) 5 Mg Tablet 120.00 30 Ca Bat 4031171 Dis (1180) 0 30.00 [place] 05/20/2023 05/20/2023 1 Oxycodone Hcl (Ir) 5 Mg Tablet 90.00 30 Ca Bat 8209465 Dis (1180) 0 22.50 [place] 05/13/2023 05/13/2023 1 Oxycodone Hcl (Ir) 5 Mg Tablet 42.00 7 Ra Braxton 8829227 Dis (1180) 0 45.00 [place] 04/18/2023 04/18/2023 1 Oxycodone-Acetaminophen 5-325 20.00 5 Ra Braxton 3053474 Dis (1180) 0 30.00 [place] 04/07/2023 04/07/2023 1 Oxycodone-Acetaminophen 5-325 9.00 3 Re Dur 2457613 Dis (1180) 0 22.50 [place] 03/20/2023 03/20/2023 1 Tramadol Hcl 50 Mg Tablet 8.00 2 Br Bar 2529303 Dis (1180) 0 40.00 [place] 11/30/2022 11/30/2022 1 Oxycodone-Acetaminophen 5-325 12.00 3 Re Dur 9338049 Dis (0126) 0 30.00 [place] 11/21/2022 11/21/2022 1 Hydrocodone-Acetamin 5-325 Mg 10.00 2 Re Maikel 2669260 Dis (1180) 0 25.00 [place] 10/19/2022 10/19/2022 1 Oxycodone-Acetaminophen 5-325 12.00 3 Ju And 4619647 Dis 1180) 0 30.00 [place] Providers Total: 12 Name Address [facility] Zipcode Phone Cory Barksdale D.O. [address] [place] [address] [facility] [address] - Dillon Restrepo DO [address] [facility] [address] - Claire Johansen MD [address] [facility] [address] - Dmitriy Matos MD [address] [place] [address] [facility] [address] - Claire Johansen [address] [facility] [phone] - Ashlyn Magana [address] [facility] [id number] - Ashlyn Dozier [address] [facility] [address] - [facility] [address] [facility] [address] - Mohamud Colvin [address] [facility] [address] - Awa Gallardo PA-C [address] [facility] [place] [address] [facility] [address] - Jayden Le [address] [place] [address] [facility] [address] - Sagar Ojeda [address] [facility] [facility] [address] - Pharmacies Total: 4 Name Address [facility] Zipcode Phone [facility] [phone] [place] [address] [facility] [phone] [facility] [id number] [facility] [phone] [facility] [address] [facility] [phone] [facility] [id number] PAST MEDICAL HISTORY: PAST MEDICAL HISTORY Diagnosis Date Anemia of chronic disorder Anuria Atrial fibrillation (HCC) 12/02/2018 on Coumadin and Amiodarone BMI 40.0-44.9, adult (HCC) ESRD (end stage renal disease) on dialysis (HCC) 2005 ESRD from HTN Dialysis M,W,F [facility] [phone] Essential hypertension, benign 1998 EKG 09/30 NL. [...] jacket, goes to wound care center in [place] PAST SURGICAL HISTORY: PAST SURGICAL HISTORY Procedure 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 01/17/2013 [facility]X CARDIAC RADIOFREQUENCY ABLATION 08/21/2021 s/p [...] (Bazett) 466 ms Final HEART Calculated P [place] 67 degrees Final HEART Calculated R [place] 145 degrees Final HEART Calculated T [place] 88 degrees Final HEART Impression SINUS RHYTHM [...] MAR Reviewed. SIGNATURE: Bailey Brown PA-C PAGER: [phone] DATE: October 15, 2024 TIME: 9:08 AM BAS METAB 1999 PNL SERPL Collected: 4:31 AM Status: F Source: [facility] Order Comment: Specimen Type : BLOOD SPECIMEN Ordering Facility: [facility] Address: [place] [id number] TYPE CODE TESTS RESULT OUT OF RANGE REFERENCE UNITS LAB 2345-7(LOINC) Glucose SerPl-mCnc 84 74-99 mg/dL Result Comment: The [place] Diabetes Association (ADA) provides guidance for cutoff [...] Standards of Medical Care in Diabetes 2016, [place] Diabetes Association. Diabetes Care. 2016.39(Suppl 1). LAB 3094-0(LOINC) BUN SerPl-mCnc 27 High 9-24 mg/ dL LAB 2160-0(LOINC) Creat SerPl-mCnc 8.02 High 0.73-1.22 mg/dL LAB 2951-2(LOINC) Sodium SerPl-sCnc 137 136-144 mmol/L LAB 2823-3(LOINC) Potassium SerPl-sCnc 4.6 3.7-5.1 mmol/L LAB 2075-0(LOINC) Chloride SerPl-sCnc 92 Low 98-107 mmol/L LAB 202-9(LOINC) CO2 SerPl-sCnc 28 22-30 mmo l/L LAB 23478-5(LOINC) Anion Gap SerPl-sCnc 17 High 8-15 mmol/L LAB 74423-9(LOINC) Calcium SerPl-mCnc 8.4 Low 8.5-10.2 mg/dL LAB 59854-9(LOINC) Creatinine + eGFR Pnl SerPlBld 8 Low [...] accurately reflect actual GFR. Performed By: #### 29273-1 # ### [facility] CLIA [id number] [address] [place] [address] STATES OF [facility] CBC PNL BLD AUTO Collected: 5 4:31 AM Status: F Source: [facility] Order Comment: Specimen Type : BLOOD SPECIMEN Ordering Facility: [facility] Address: [address] [place] [address] TYPE CODE TESTS RESULT OUT OF RANGE [...] RBC Auto-mCnc 30.4 Low 30.5-36.0 g/dL LAB 15356-8(LOINC) RDW RBC-Rto 18.2 High 11.5-15.0 % LAB 777-3(LOINC) Platelet # Bld Auto 238 150-400 k/uL LAB 20549-4(LOINC) PMV Bld Auto 10.9 9.0-12.7 fL LAB 771-6(LOINC) nRBC # Bld Auto <0.01 <0.01 k/uL Performed By: #### 87548-7 # ### [facility] CLIA [id number] [address] [place], [place] [id number] [place] PT PNL PPP Collected: 10/15/2024 4:31 AM Status: F Source: [facility] Order Comment: Specimen Type : BLOOD SPECIMEN Ordering Facility: [facility] Address: [address] [place] [address] TYPE CODE TESTS RESULT OUT OF RANGE REFERENCE UNITS LAB 5902-2(LOINC) Prothrombin time 15.0 High 9.7-13.0 sec LAB 6301-6(LOINC) INR PPP 1.4 High 0.9-1.3 Result Comment: Vitamin K An tagonist (VKA) Therapeutic Range: INR 2 to 3 (Target INR of 2.5) Note: For patients treated with VKA drugs, such as warfarin, the [place] College of Chest Physicians 2012 Guideline recommends [...] Chest 2012, 141:7S-47S Kevin RA, et al. [facility] 2017, 70: 252-289 Performed By: #### PTTAC, 34 528-0 #### [facility] CLIA [id number] [address] [place], [place] [id number] [place] PTT, ANTICOAGULANT THERAPY Collected: 0 10/15/2024 4:31 AM Status: F Source: [facility] Order Comment: Specimen Type : BLOOD SPECIMEN Ordering Facility: [facility] Address: [address] [place] [address] TYPE CODE TESTS RESULT OUT OF RANGE REFERENCE UNITS LAB 15542-8(LOINC) aPTT PPP >139.0 High 23.0-32.4 sec Result Comment: Sample check ed for clot. Result rechecked. Performed By: #### PTTAC, 34 528-0 #### [facility] CLIA [id number] [address] [place] [address] PTT, ANTICOAGULANT THERAPY Collected: 0 10/14/2024 10:46 PM Status: F Source: [facility] Order Comment: Specimen Type : BLOOD SPECIMEN Ordering Facility: [facility] Address: [address] [place] [address] TYPE CODE TESTS RESULT OUT OF RANGE REFERENCE UNITS LAB 63410-4(LOINC) aPTT PPP 75.4 High 23.0-32.4 sec Performed By: #### PTTAC ### # [facility] CLIA [id number] [address] [place] [address] PLAN OF CARE Observed: 10/14/2024 5:03 PM Status: COMPLETED Source: [facility] HNO ID: [id number] Author: KATHLEEN FERGUSON PA-C Service: Interventional Radiology Author Type: Physician Mannequin Mold Maker Type: Plan of Care Filed: 10/14/2024 17:10 [...] line to be removed. Patient returned to [facility] with no complaints Kathleen Ferguson PA-C October 14, 2024 5:04 PM PROGRESS Observed: 10/14/2024 4:36 PM Status: COMPLETED Source: [facility] HNO ID: [id number] Author: PACO GARDUNO MD Service: General Internal Medicine Author Type: Physician Type: Progress Notes Filed: 10/14/2024 16:56 Note Text: DEPARTMENT OF HOSPITAL MEDICINE PROGRESS NOTE SERVICE DATE: 10/14/2024 SERVICE TIME: 11:10 am Hospital Medicine/Primary Attending: Paco Garduno MD NIGHT AND WEEKEND COVERAGE: [facility] COVERAGE: Days: [phone], please page Paco Garduno for patient issues. Nights: [phone], please page Team GIM 1: G/H 8th floor: [address]97; Non 8th floor [address] Subjective INTERVAL HPI: Oxycodone was switched to [...] Left Femoral 9 days Peripheral 10/12/24 0530 [facility] Short Right Forearm 20 Gauge 2 days Peripheral 10/12/24 0951 Left Forearm 22 Gauge 2 days DATA: Diagnostic tests reviewed for today's visit: Most recent labs Most recent imaging Assessment/Plan Problem List Assessment AND Plan Dialysis patient ([facility]) ESRD (end stage renal disease) on dialysis ([facility]) HTN (hypertension) YEIMY (obstructive sleep apnea) 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 Personal history of DVT (deep vein thrombosis) PAF (paroxysmal atrial fibrillation) ([facility]) History of stroke Hypotension, chronic Chronic pain syndrome Anemia due to stage 5 chronic kidney disease, not on chronic dialysis ([facility]) ([facility]) Status post Maze operation for atrial fibrillation Skin ulcer, limited to breakdown of skin ([facility]) HOSPITAL COURSE: Elia Weston is a 44 year old male with h/o atrial fibrillation and severe mitral stenosis s/p mitral valve replacement with On-x valve, Maze procedure and RADHA clip on 08/21/2021, currently on Coumadin, ESRD on IHD via left femoral vein TDC on MWF([facility] ), SVC syndrome as a complication [...] -- 10/12/24 1111 activity - mobilize patient (nv,ct) VTE Prophylaxis: VTE prophylaxis appropriate Disposition: To be determined Plan of care discussed with Provider, RN, Patient SIGNATURE: Paco Garduno MD PATIENT NAME: Elia Weston DATE: October 14, 2024 TIME: 11:10 am CONSULT Observed: 10/14/2024 4:30 PM Status: COMPLETED Source: [facility] HNO ID: [id number] Author: HEIDY SIMMONS APRN.MIKI Service: Physical Medicine AND Rehabilitation Author Type: Nurse Practitioner Type: Consults Filed: 10/14/2024 16:31 Note Text: PMANDR consult received today. Chart reviewed. Attempted multiple times to see patient, transport now at bedside to take pt for procedure. Will try again tomorrow for PMANDR evaluation.Thank you for the consult. Please call with any questions. Current location: [place] [address] Heidy Simmons APRN.[facility] Physical Medicine and Rehabilitation pager [phone] THERAPY NT Observed: 10/14/2024 4:22 PM Status: COMPLETED Source: [facility] HNO ID: [id number] Author: LINNEA OGLESBY PT Service: Physical Therapy Author Type: Physical Therapist Type: Therapy (PT/OT/Speech/Resp) Filed: 10/14/2024 16:22 Note Text: Physical Therapy Evaluation Summary SERVICE DATE: 10/14/2024 SERVICE TIME: 1525 to 1608 ROOM: [place] [address] PT 6 Clicks Score: 17 DISCHARGE RECOMMENDATIONS [...] amenable for the construction), hyperlipidemia, obesity, and [place] HOME LIVING Patient Lives With: Family, Other: [...] Endorses one fall ~1 week ago from [place]. Drives. SUBJECTIVE pt pleasantly agreeable to PT THERAPY DIAGNOSIS Reduced mobility-other TREATMENT INTERVENTIONS Evaluation, Gait Training (77378), Therapeutic Activity (57114) Timed Code Treatment (minutes): 28 Skilled Treatment [...] Observed: 10/14/2024 3:13 PM Status: COMPLETED Source: [facility] HNO ID: [id number] Author: EILEEN PERALTA, RN Service: Care Management Author Type: Registered Nurse Type: Care Mgt Progress Note Filed: 10/14/2024 15:24 Note Text: CARE MANAGEMENT PROGRESS NOTE SERVICE DATE: 10/14/2024 SERVICE TIME: 3:14 PM LOS: 2 days Post-Acute Discharge Planning Patient Goal(s): General wellness [place] Explained: [place] Given: Yes Level of Care Discussed: Shelter Facility;Inpatient Rehab Facility Anticipated # of Days [...] Collected: 10/14/2024 12:25 PM Status: F Source: [facility] Order Comment: Specimen Type : SWAB Ordering Facility: [facility] Address: [address] [place] [address] TYPE CODE TESTS RESULT OUT OF RANGE REFERENCE UNITS LAB 53692-0(LOINC ) SA+MRSA Pnl Nose CARLOS+probe Methicillin-RESIS TANT Staphylococcus aureus (MRSA) Detected Abnormal Not Detected Performed By: #### SAPCR ### # [facility] CLIA [id number] [address] [place] [address] [place] [address] [place] CONSULT PROG Observed: 10/14/2024 11:18 AM Status: COMPLETED Source: [facility] HNO ID: [id number] Author: AVIS LUNDY MD Service: Dermatology Author [...] were performed on block A1 at the [facility] and compared to appropriate controls. A [...] follow Patient seen and discussed with attending price checker, Dr. Conor Lackey MD Dermatology, PGY-4 October 14, 2024 11:19 AM Please use consult pager [phone], Mon-Fri 8am-5pm. Please call electric truck crane operator for on-call resident/pager during all other [...] Observed: 10/14/2024 10:45 AM Status: COMPLETED Source: [facility] HNO ID: [id number] Author: MARLINE VELA OT/L Service: Occupational Therapy Author Type: Occupational Therapist Type: Therapy (PT/OT/Speech/Resp) Filed: 10/14/2024 10:45 Note Text: Occupational Therapy Evaluation Summary SERVICE DATE: 10/14/2024 SERVICE TIME: 0858 to 1003 ROOM: [place] [address] OT 6 Clicks Score: 17 DISCHARGE RECOMMENDATIONS [...] Functions and Awareness TREATMENT INTERVENTIONS Evaluation, Self Prison Management (07228), Therapeutic Activity (93240), Therapeutic Exercise (55339) Timed Code Treatment (minutes): 50 Skilled Treatment Time (minutes): 65 TRAINING AND EDUCATION PROVIDED Activity Adaptation/Compensatory Strategies, Bed Mobility, Benefits of In-Hospital Mobility, Coping Skills/Resiliency, Discharge Planning, Executive Functions/Problem Solving, Functional Mobility Involving ADLs, Grooming Tasks, Insight into Deficits, Life Roles/Routines/Habits, Lower Extremity Dressing, Meaningful Hobby/Leisure Participation, Patient Exercise/Therapy Program Support Needs, Role of Occupational Therapy, Safety/Judgment, Self-Efficacy, Self-Expression/Advocacy, Standing Balance to Improve [place] with ADLs/Self-Care, Sleep Hygiene, Stress Management, Treatment [...] Observed: 10/14/2024 9:48 AM Status: COMPLETED Source: [facility] ID: [id number] Author: MINAL DAVIS MD Service: Infectious Disease [...] antibiotic therapy Discussed with primary team and price checker. Minal Davis MD INFECTIOUS DISEASE CONSULT PROGRESS [...] Left Femoral 9 days Peripheral 10/12/24 0530 [facility] Short Right Forearm 20 Gauge 2 days [...] Bhatti, MS4 SIGNATURE: Stephanie Bhatti PATIENT NAME: Elia Weston DATE: October 14, 2024 TIME: 9:49 AM . CONSULT Observed: 10/14/2024 9:08 AM Status: COMPLETED Source: [facility]NO ID: [id number] Author: LISSY KUMARI, LUCAS.GERIATRIC PHYSICIAN Service: Wound Care Team Author Type: Clinical [...] if further needs arise. Lissy Kumari, MSN, HORSE BREEDER, ACNS-BC, CWOCN CONSULT Observed: 10/14/2024 7:33 AM Status: COMPLETED Source: [facility] HNO ID: [id number] Author: DIEGO PARKER MD Service: Plastic Surgery [...] ESRD (end stage renal disease) on dialysis ([facility]) 2005 ESRD from HTN Dialysis M,W,F [facility] [phone] Essential hypertension, benign 1998 EKG 09/30 NL. Hearing loss of both ears History of mitral valve stenosis Hx of bacterial endocarditis Hyperparathyroidism due to end stage renal disease on dialysis ([facility]) Kidney disease 2005 ESRD due to HTN; on IHD since 2005 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 and scoliosis h/o this 3 y. Dx by xray. Mechanical complication of arteriovenous fistula surgically created (HCC) Mechanical complication of dialysis catheter ([facility]) Mitral valve disease Morbid obesity (HCC) MS (mitral stenosis) 10/08/2018 Transesophageal US YEIMY on CPAP Paroxysmal atrial fibrillation (HCC) PE (pulmonary thromboembolism) ([facility]) Pelvic mass Pseudoaneurysm of AV hemodialysis fistula ([facility]) Wound of right side of back from friction/rubbing of jacket, goes to wound care center in [place] PAST SURGICAL HISTORY Procedure Laterality Date ARTERIOVENOUS FISTULA Left 08/29/2010 CAPSULE ENDOSCOPY 07/01/2023 CARDIOVERSION-ELECTIVE N/A 12/03/2018 200 joules synchronized - successful COLONOSCOPY 07/01/2023 EGD 06/27/2023 HERNIA REPAIR HX PAST SURGICAL HISTORY OF 08/29/2010 dialysis fistula left arm PAST SURGICAL HISTORY OF Right 03/2019 Right leg femoral vein to superficial femoral artery loop graft mid thigh REPAIR CLEFT LIP RMVL LEANN CVC W/O SUBQ PORT/BANQUET STEWARDESS 01/17/2013 SHX CARDIAC RADIOFREQUENCY ABLATION 08/21/2021 s/p [...] October 14, 2024 TIME: 7:34 AM Pager: [phone] Attending note: I agree with the resident's findings and plan as documented and have discussed the management of the patient's care with the resident. Diego Parker MD 10/14/24 7:42 AM BAS METAB 2000 PNL SERPL Collected: 6:57 AM Status: F Source: [facility] Order Comment: Specimen Type : BLOOD SPECIMEN Ordering Facility: [facility] Address: [address] [place] [address] TYPE CODE TESTS RESULT OUT OF RANGE REFERENCE UNITS LAB 2345-7(LOINC) Glucose SerPl-mCnc 75 74-99 mg/dL Result Comment: The [place] Diabetes Association (ADA) provides guidance for cutoff [...] Standards of Medical Care in Diabetes 2016, [place] Diabetes Association. Diabetes Care. 2016.39(Suppl 1). LAB 3094-0(LOINC) BUN SerPl-mCnc 20 9-24 mg/ dL LAB 2160-0(LOINC) Creat SerPl-mCnc 6.22 High 0.73-1.22 mg/dL LAB 2951-2(LOINC) Sodium SerPl-sCnc 137 136-144 mmol/L LAB 2823-3(LOINC) Potassium SerPl-sCnc 4.7 3.7-5.1 mmol/L LAB 2075-0(LOINC) Chloride SerPl-sCnc 93 Low 98-107 mmol/L LAB 2028-9(LOINC) CO2 SerPl-sCnc 26 22-30 mmo l/L LAB 14732-5(LOINC) Anion Gap SerPl-sCnc 18 High 8-15 mmol/L LAB 33115-3(LOINC) Calcium SerPl-mCnc 8.9 8.5-10.2 mg/dL LAB 87465-1(LOINC) Creatinine + eGFR Pnl SerPlBld 11 Low [...] accurately reflect actual GFR. Performed By: #### 38786-6 # ### [facility] CLIA [id number] [address] [place] [address] [place] [facility] CBC PNL BLD AUTO Collected: 5 6:57 AM Status: F Source: [facility] Order Comment: Specimen Type : BLOOD SPECIMEN Ordering Facility: [facility] Address: [address] [place] [address] TYPE CODE TESTS RESULT OUT OF RANGE REFERENCE UNITS LAB 6690-2(LOINC) WBC # Bld Auto 5.28 3.70-11.00 k/uL LAB 789-8(LOINC) RBC # Bld Auto 3.02 Low 4.20-6.00 m/uL LAB 718-7(LOINC) Hgb Bld-mCnc 8.3 Low 13.0-17.0 g/dL LAB 4544-3(LOINC) Hct VFr Bld Auto 27.9 Low 39.0-51.0 % LAB 787-2(LOINC) MCV RBC Auto 92.4 80.0-100.0 fL LAB 785-6([facility]) MCH RBC Qn Auto 27.5 26.0-34.0 pg LAB 786-4([facility]) MCHC RBC Auto-mCnc 29.7 Low 30.5-36.0 g/dL LAB 58459-3([facility]) RDW RBC-Rto 18.4 High 11.5-15.0 % LAB 777-3([facility]) Platelet # Bld Auto 262 150-400 k/uL LAB 17952-1([facility]) PMV Bld Auto 10.9 9.0-12.7 fL LAB 771-6([facility]) nRBC # Bld Auto <0.01 <0.01 k/uL Performed By: #### 91558-0 # ### [facility] CLIA [id number] [address] [place] [address] [place] PTT, ANTICOAGULANT THERAPY Collected: 0 10/14/2024 6:57 AM Status: F Source: [facility] Order Comment: Specimen Type : BLOOD SPECIMEN Ordering Facility: [facility] Address: [address] [place] [address] TYPE CODE TESTS RESULT OUT OF RANGE REFERENCE UNITS LAB 09888-2([facility]) aPTT PPP 75.8 High 23.0-32.4 sec Performed By: #### 96594-4, PTTAC #### [facility] CLIA [id number] [address] [place] [address] [place] PT PNL PPP Collected: 10/14/2024 6:57 AM Status: F Source: [facility] Order Comment: Specimen Type : BLOOD SPECIMEN Ordering Facility: [facility] Address: [address] [place] [address] TYPE CODE TESTS RESULT OUT OF RANGE REFERENCE UNITS LAB 5902-2([facility]) Prothrombin time 14.1 High 9.7-13.0 sec LAB 6301-6([facility]) INR PPP 1.3 0.9-1.3 Result Comment: Vitamin K An tagonist (VKA) Therapeutic Range: INR 2 to 3 (Target INR of 2.5) Note: For patients treated with VKA drugs, such as warfarin, the [place] College of [employer] Physicians 2012 Guideline recommends [...] Chest 2012, 141:7S-47S Kevin RA, et al. [facility] 2017, 70: 252-289 Performed By: #### 31896-9, PTTAC #### [facility] CLIA [id number] [address] [place] [address] [place] PTT, ANTICOAGULANT THERAPY Collected: 0 10/13/2024 11:13 PM Status: F Source: [facility] Order Comment: Specimen Type : BLOOD SPECIMEN Ordering Facility: [facility] Address: [address] [place] [address] TYPE CODE TESTS RESULT OUT OF RANGE REFERENCE UNITS LAB 09490-7(LOINC) aPTT PPP 60.9 High 23.0-32.4 sec Performed By: #### PTTAC ### # [facility] CLIA [id number] [address] [place] [address] [place] PROGRESS Observed: 10/13/2024 8:50 PM Status: COMPLETED Source: [facility] HNO ID: [id number] Author: PACO GARDUNO MD Service: General Internal Medicine Author Type: Physician Type: Progress Notes Filed: 10/13/2024 21:35 Note Text: DEPARTMENT OF HOSPITAL MEDICINE PROGRESS NOTE SERVICE DATE: 10/13/2024 SERVICE TIME: 8:50 PM Hospital Medicine/Primary Attending: Paco Garduno MD NIGHT AND WEEKEND COVERAGE: [facility] COVERAGE: Days: [phone], please page Paco Garduno for patient issues. Nights: [phone], please page Team GIM 1: G/H 8th floor: [address]; Non 8th floor [address] Subjective INTERVAL HPI: Oxycodone not providing adequate [...] Left Femoral 8 days Peripheral 10/12/24 0530 [facility] Short Right Forearm 20 Gauge 1 day Peripheral 10/12/24 0951 Left Forearm 22 Gauge 1 day DATA: Diagnostic tests reviewed for today's visit: Most recent labs Most recent imaging Assessment/Plan Problem List Assessment AND Plan Dialysis patient ([facility]) ESRD (end stage renal disease) on dialysis ([facility]) HTN (hypertension) YEIMY (obstructive sleep apnea) 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 Personal history of DVT (deep vein thrombosis) PAF (paroxysmal atrial fibrillation) ([facility]) History of stroke Hypotension, chronic Chronic pain syndrome HOSPITAL COURSE: Elia Weston is a 44 year old male with h/o atrial fibrillation and severe mitral stenosis s/p mitral valve replacement with On-x valve, Maze procedure and RADHA clip on 08/21/2021, currently on Coumadin, ESRD on IHD via left femoral vein TDC on MWF([facility] ), SVC syndrome as a complication of [...] hemodialysis via left femoral vein TDC on [facility] 4. SVC syndrome-multiple right and left [...] -- 10/12/24 1111 activity - mobilize patient (nv,ct) VTE Prophylaxis: VTE prophylaxis appropriate Disposition: To be determined Plan of care discussed with Provider, RN, Patient SIGNATURE: Paco Garduno MD PATIENT NAME: Elia Weston DATE: October 13, 2024 TIME: 8:50 PM CONSULT Observed: 10/13/2024 7:45 PM Status: COMPLETED Source: [facility] ID: [id number] Author: AVIS LUNDY MD Service: Dermatology Author [...] ESRD (end stage renal disease) on dialysis ([facility]) 2005 ESRD from HTN Dialysis M,W,F [facility] [phone] Essential hypertension, benign 1998 EKG 09/30 NL. Hearing loss of both ears History of mitral valve stenosis Hx of bacterial endocarditis Hyperparathyroidism due to end stage renal disease on dialysis ([facility]) Kidney disease 2005 ESRD due to HTN; on IHD since 2005 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 and scoliosis h/o this 3 y. Dx by xray. Mechanical complication of arteriovenous fistula surgically created ([facility]) Mechanical complication of dialysis catheter ([facility]) Mitral valve disease Morbid obesity ([facility]) MS (mitral stenosis) 10/08/2018 Transesophageal US YEIMY on CPAP Paroxysmal atrial fibrillation ([facility]) PE (pulmonary thromboembolism) ([facility]) Pelvic mass Pseudoaneurysm of AV hemodialysis fistula ([facility]) Wound of right side of back from friction/rubbing of jacket, goes to wound care center in [place] FAMILY HISTORY: Unknown family history of skin [...] were performed on block A1 at the [facility] and compared to appropriate controls. A [...] vasculature Patient seen and discussed with attending price checker, Dr. Lundy Will follow Taylor Lackey MD Dermatology, PGY-4 October 13, 2024 7:45 PM Please use consult pager [phone], Mon-Fri 8am-5pm. Please call electric truck crane operator for on-call resident/pager during all other [...] Observed: 10/13/2024 5:36 PM Status: COMPLETED Source: [facility] HNO ID: [id number] Author: JENNY TINAJERO RPh Service: Pharmacy Author Type: Pharmacist Type: Plan of Care Filed: 10/13/2024 18:51 Note Text: PHARMACY MEDICATION REVIEW Patient Name: Elia Weston : 1980 The following medications were updated within the [facility] medication list: Medications ADDED to [facility] medication list Melatonin 10 mg capsules - Take 1 tablet by mouth at bedtime Medications CHANGED on [facility] medication list Cinacalcet 30 mg tablets take [...] (confirmed dosing with [facility]) Medications REMOVED from [facility] medication list bismuth tribrom-petrolatum 5 X 9 [...] medication history: Yes Medication history completed by: Care Worker: Nancy Meek Source of history: Patient: Reliability of source: Appears reliable, clearly identified: Medication name, Medication dose, Medication route, Medication frequency, Timing of last dose, and Indications, [facility] records, and Care Everywhere records and [facility] and [facility] Medication nonadherence identified: No barriers noted Reconciliation completed: Yes Completed by: Jenny Tinajero RPh All [facility]OT[facility] DRILLER medications addressed by LIP. Will discuss restarting renal multivitamin. Oxycodone currently on hold and replaced with hydromorphone. Patient interested in Bedside Delivery Services or using [facility] at discharge? Yes. Discharge Pharmacy Updated Preferred outpatient pharmacy: [facility] [address] [place] [phone] - [phone] [facility] Allergies: Gabapentin Unknown, [...] history has been completed by a pharmacy cashier and reviewed by a pharmacist. Any additions/clarifications are in italics. Jenny Tinajero, PharmD [phone] PTT, ANTICOAGULANT THERAPY Collected: 0 10/13/2024 3:52 PM Status: F Source: [facility] Order Comment: Specimen Type : BLOOD SPECIMEN Ordering Facility: [facility] Address: [address] [place] [address] TYPE CODE TESTS RESULT OUT OF RANGE REFERENCE UNITS LAB 57737-9(LOINC) aPTT PPP 47.9 High 23.0-32.4 sec Performed By: #### PTTAC ### # [facility] CLIA [id number] [address] [place] [address] [place] [address] [place] CASE MGT INIT MUNA Observed: 10/13/2024 2:30 PM Status: COMPLETED Source: [facility] HNO ID: [id number] Author: EILEEN PERALTA RN Service: Care Management Author Type: Registered Nurse Type: Care Mgt Initial Assessment Filed: 10/13/2024 16:12 Note Text: CARE MANAGEMENT: ASSESSMENT AND DISCHARGE PLAN SERVICE DATE: October 13, 2024 SERVICE TIME: 2:30 PM PCP: No primary care provider on file. Primary Contact: Extended Emergency Contact Information Primary Emergency Contact: Irma Weston Address: [facility] [address] [place] [id number] [place] [address] Mobile Relation: Spouse Secondary Emergency Contact: Pablo Weston Mobile Relation: Mother Admission Status: Inpatient Insurance Provider: [employer] O Discharge Planning requested by: [...] Planning Patient Goal(s): General wellness, Increase strength [place] of Choice Explained: [place] of Choice Given: No Reason Not Given: [...] Observed: 10/13/2024 1:28 PM Status: COMPLETED Source: [facility] HNO ID: [id number] Author: CAMILO NORTON PA-C Service: Nephrology Author Type: Physician Mannequin Mold Maker Type: Consult Progress Note Filed: 10/13/2024 13:32 Note Text: Department of Kidney Medicine Medical Specialties [place] [facility] NEPHROLOGY CONSULT SERVICE PROGRESS NOTE INTERVAL [...] Left Femoral 8 days Peripheral 10/12/24 0530 [facility] Short Right Forearm 20 Gauge 1 day [...] weight. ESRD Hx First HD: 2005 Unit: [facility] Loading Dock Hand: Dr. Melendez Days: EDW: 114kg Access: L [...] nephrocaps - renvela with meals Consent for TECHNICAL SALES ASSOCIATE: ESRD Camilo Norton PA-C Department of Kidney Medicine [facility] October 13, 2024 1:28 PM PAGER # [phone] Disclosures: Parts of the current progress note may have been copied from a previous note. FOR AFTER HOUR CONCERNS BETWEEN 5PM - 7AM CONTACT ON-CALL NEPHROLOGY FELLOW [phone] NUTRITION Observed: 10/13/2024 12:47 PM Status: COMPLETED Source: [facility] HNO ID: [id number] Author: EDUARDO MAYNARD RD Service: Nutrition Therapy Author Type: Registered Dietitian Type: Nutrition Filed: 10/13/2024 12:48 Note Text: NUTRITION THERAPY SCREEN NOTE SERVICE DATE: 10/13/2024 SERVICE TIME: 11:00am Care Plan: Continue current diet Refer to: Java Engineer to Follow Vitamins and Minerals: Renal vitamin [...] Observed: 10/13/2024 12:02 PM Status: COMPLETED Source: [facility] HNO ID: [id number] Author: MINAL DAVIS MD Service: Infectious Disease [...] Anemia of chronic disorder Anuria Atrial fibrillation ([facility]) 12/02/2018 on Coumadin and Amiodarone BMI 40.0-44.9, adult ([facility]) ESRD (end stage renal disease) on dialysis ([facility]) 2005 ESRD from HTN Dialysis M,W,F [facility] [phone] Essential hypertension, benign 1998 EKG 09/30 NL. Hearing loss of both ears History of mitral valve stenosis Hx of bacterial endocarditis Hyperparathyroidism due to end stage renal disease on dialysis ([facility]) Kidney disease 2005 ESRD due to HTN; on IHD since 2005 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 and scoliosis h/o this 3 y. Dx by xray. Mechanical complication of arteriovenous fistula surgically created ([facility]) Mechanical complication of dialysis catheter ([facility]) Mitral valve disease Morbid obesity ([facility]) MS (mitral stenosis) 10/08/2018 Transesophageal US YEIMY on CPAP Paroxysmal atrial fibrillation ([facility]) PE (pulmonary thromboembolism) ([facility]) Pelvic mass Pseudoaneurysm of AV hemodialysis fistula ([facility]) Wound of right side of back from 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 01/17/2013 [facility] CARDIAC RADIOFREQUENCY ABLATION 08/21/2021 s/p [...] Left Femoral 8 days Peripheral 10/12/24 0530 [facility] Short Right Forearm 20 Gauge 1 day [...] Observed: 10/13/2024 8:26 AM Status: COMPLETED Source: [facility] HNO ID: [id number] Author: MICHELLE KRUGER, RACHEL Service: ? Author Type: Registered Nurse Type: Nursing Progress Note Filed: 10/13/2024 08:27 Note Text: Patient refusing myself and bedside nurse to complete skin assessment. Patient has known wounds and dressings covering them. Patient would not let us assess the wounds. PLAN OF CARE Observed: 10/13/2024 8:19 AM Status: COMPLETED Source: [facility] HNO ID: [id number] Author: NANCY MEEK, ? Service: Pharmacy Author Type: Political Organizer Type: Plan of Care Filed: 10/13/2024 08:19 Note Text: Insurance investigation completed Patient has active prescription insurance: Yes - Patient's insurance is in-network with [facility] Insurance loaded into [place]: Yes Test claim was completed to verify insurance is active: Successful Any questions, please reach out to your medication collection coordinator. PTT, ANTICOAGULANT THERAPY Collected: 0 10/13/2024 7:51 AM Status: F Source: [facility] Comment: Specimen Type : BLOOD SPECIMEN Ordering Facility: [facility] Address: [address] [place] [address] TYPE CODE TESTS RESULT OUT OF RANGE REFERENCE UNITS LAB 03526-8(LOINC) aPTT PPP 50.5 High 23.0-32.4 sec Performed By: #### PTTAC ### # [facility] CLIA [id number] [address] [place] [address] [place] BAS METAB 2000 PNL SERPL Collected: 3:52 AM Status: F Source: [facility] Comment: Specimen Type : BLOOD SPECIMEN Ordering Facility: [facility] Address: [address] [place] [address] TYPE CODE TESTS RESULT OUT OF RANGE REFERENCE UNITS LAB 2345-7(LOINC) Glucose SerPl-mCnc 111 High 74-99 mg/dL Result Comment: The [place] Diabetes Association (ADA) provides guidance for cutoff [...] Standards of Medical Care in Diabetes 2016, [place] Diabetes Association. Diabetes Care. 2016.39(Suppl 1). LAB 3094-0(LOINC) BUN SerPl-mCnc 34 High 9-24 mg/ dL LAB 2160-0(LOINC) Creat SerPl-mCnc 7.48 High 0.73-1.22 mg/dL LAB 2951-2(LOINC) Sodium SerPl-sCnc 139 136-144 mmol/L LAB 2823-3(LOINC) Potassium SerPl-sCnc 4.7 3.7-5.1 mmol/L LAB 2075-0(LOINC) Chloride SerPl-sCnc 95 Low 98-107 mmol/L LAB 2028-9(LOINC) CO2 SerPl-sCnc 26 22-30 mmo l/L LAB 06813-3(LOINC) Anion Gap SerPl-sCnc 18 High 8-15 mmol/L LAB 94905-1(LOINC) Calcium SerPl-mCnc 8.7 8.5-10.2 mg/dL LAB 16467-6(LOINC) Creatinine + eGFR Pnl SerPlBld 9 Low [...] accurately reflect actual GFR. Performed By: #### 33641-7 # ### [facility] CLIA [id number] [address] [place] [address] [place] CBC PNL BLD AUTO Collected: 5 3:52 AM Status: F Source: [facility] Order Comment: Specimen Type : BLOOD SPECIMEN Ordering Facility: [facility] Address: [address] [place] [address] TYPE CODE TESTS RESULT OUT OF RANGE REFERENCE UNITS LAB 6690-2([facility]) WBC # Bld Auto 5.25 3.70-11.00 k/uL LAB 789-8([facility]) RBC # Bld Auto 2.85 Low 4.20-6.00 m/uL LAB 718-7([facility]) Hgb Bld-mCnc 8.0 Low 13.0-17.0 g/dL LAB 4544-3([facility]) Hct VFr Bld Auto 26.0 Low 39.0-51.0 % LAB 787-2([facility]) MCV RBC Auto 91.2 80.0-100.0 fL LAB 785-6([facility]) MCH RBC Qn Auto 28.1 26.0-34.0 pg LAB 786-4([facility]) MCHC RBC Auto-mCnc 30.8 30.5-36.0 g/dL LAB 11238-2([facility]) RDW RBC-Rto 18.1 High 11.5-15.0 % LAB 777-3([facility]) Platelet # Bld Auto 270 150-400 k/uL LAB 99212-5([facility]) PMV Bld Auto 11.0 9.0-12.7 fL LAB 771-6([facility]) nRBC # Bld Auto <0.01 <0.01 k/uL Performed By: #### 54000-0 # ### [facility] CLIA [id number] [address] [place] [address] [place] PTT, ANTICOAGULANT THERAPY Collected: 0 10/13/2024 1:02 AM Status: F Source: [facility] Order Comment: Specimen Type : BLOOD SPECIMEN Ordering Facility: [facility] Address: [address] [place] [address] TYPE CODE TESTS RESULT OUT OF RANGE REFERENCE UNITS LAB 11311-1([facility]) aPTT PPP 42.2 High 23.0-32.4 sec Performed By: #### PTTAC ### # [facility] CLIA [id number] [address] [place] [address] [place] NURSING PROG Observed: 10/12/2024 8:03 PM Status: COMPLETED Source: [facility] HNO ID: [id number] Author: JEFF FARIA RN Service: ? Author Type: Registered Nurse Type: Nursing Progress Note Filed: 10/12/2024 20:04 Note Text: Patient admitted from ED in stable condition, had dialysis before arrival to the unit. Patient oriented to the room and use of call light. BUN P DIALYSIS SERPL-MCNC Collected: 10/12/2024 5:47 PM Status: F Source: [facility] Order Comment: Specimen Type : BLOOD SPECIMEN Ordering Facility: [facility] Address: [address] [place] [address] TYPE CODE TESTS RESULT OUT OF RANGE REFERENCE UNITS LAB 69527-4(LOINC) BUN p dialysis SerPl-mCnc 24 9-24 mg/dL LAB BUNRAT UREA REDUCTION RATIO WITH BUNPR 65 % Performed By: #### 58538-1 # ### [facility] CLIA [id number] [address] [place] [address] [place] PTT, ANTICOAGULANT THERAPY Collected: 0 10/12/2024 3:01 PM Status: F Source: [facility] Order Comment: Specimen Type : BLOOD SPECIMEN Ordering Facility: [facility] Address: [address] [place] [address] TYPE CODE TESTS RESULT OUT OF RANGE REFERENCE UNITS LAB 28795-3(LOINC) aPTT PPP >139.0 High 23.0-32.4 sec Performed By: #### PTTAC ### # [facility] CLIA [id number] [address] [place] [address] [place] CONSULT Observed: 10/12/2024 2:55 PM Status: COMPLETED Source: [facility] HNO ID: [id number] Author: CAMILO NORTON PA-C Service: Nephrology Author Type: Physician Mannequin Mold Maker Type: Consults Filed: 10/12/2024 15:01 Note Text: Department of Kidney Medicine Medical Specialties [place] [facility] NEPHROLOGY CONSULT NOTE Patient Name: Elia Weston Consulting Service: Nephrology Requesting Provider: Tayler [...] control. ESRD Hx First HD: 2005 Unit: [facility] Loading Dock Hand: Dr. Melendez Days: MWF EDW: 114kg Access: L Fem TDC SHPT: rocaltrol 1.5mcg TIW, sensipar 60mg daily, PTH 1500 PAST MEDICAL HISTORY: PAST MEDICAL HISTORY Diagnosis Date Anemia of chronic disorder Anuria Atrial fibrillation (HCC) 12/02/2018 on Coumadin and Amiodarone BMI 40.0-44.9, adult (HCC) ESRD (end stage renal disease) on dialysis ([facility]) 2005 ESRD from HTN Dialysis M,W,F [facility] [phone] Essential hypertension, benign 1998 EKG 09/30 NL. Hearing loss of both ears History of mitral valve stenosis Hx of bacterial endocarditis Hyperparathyroidism due to end stage renal disease on dialysis (HCC) Kidney disease 2005 ESRD due to HTN; on IHD since 2005 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 and scoliosis h/o this 3 y. Dx by xray. Mechanical complication of arteriovenous fistula surgically created ([facility]) Mechanical complication of dialysis catheter ([facility]) Mitral valve disease Morbid obesity (HCC) MS (mitral stenosis) 10/08/2018 Transesophageal US YEIMY on CPAP Paroxysmal atrial fibrillation (HCC) PE (pulmonary thromboembolism) ([facility]) Pelvic mass Pseudoaneurysm of AV hemodialysis fistula ([facility]) Wound of right side of back from friction/rubbing of jacket, goes to wound care center in [place] PAST SURGICAL HISTORY: PAST SURGICAL HISTORY Procedure 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 01/17/2013 [facility] CARDIAC RADIOFREQUENCY ABLATION 08/21/2021 s/p [...] and Airways Line Duration Peripheral 10/12/24 0530 [facility] Short Right Forearm 20 Gauge <1 day [...] control. ESRD Hx First HD: 2005 Unit: [facility] Loading Dock Hand: Dr. 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: ESRD Camilo Norton PA-C Department of Kidney Medicine [facility] Pager: [phone] October 12, 2024 2:56 PM FOR AFTER HOUR CONCERNS BETWEEN 5PM - 7AM CONTACT ON-CALL NEPHROLOGY FELLOW [phone] BUN PRE DIAL SERPL-MCNC Collected: 10/12/2024 2:04 PM Status: F Source: [facility] Order Comment: Specimen Type : BLOOD SPECIMEN Ordering Facility: [facility] Address: [address] [place], [place] [address] TYPE CODE TESTS RESULT OUT OF RANGE REFERENCE UNITS LAB 78992-8(LOINC) BUN pre dial SerPl-mCnc 69 High 9-24 mg/dL Performed By: #### 52433-1 # ### [facility] CLIA [id number] [address] [place] [address] [place] HBV SURFACE AG SER QL Collected: 10/12/2024 2:04 PM Status: F Source: [facility] Comment: Specimen Type : BLOOD SPECIMEN Ordering Facility: [facility] Address: [address] [place] [address] TYPE CODE TESTS RESULT OUT OF RANGE REFERENCE UNITS LAB 5195-3(LOINC) HBV surface Ag Ser Ql Negative Negative Performed By: #### 55224-9, 5195-3 #### [facility] CLIA [id number] [address] [place] [address] HBV SURFACE AB SER QL Collected: 2024 2:04 PM Status: F Source: [facility] Comment: Specimen Type : BLOOD SPECIMEN Ordering Facility: [facility] Address: [address] [place] [address] TYPE CODE TESTS RESULT OUT OF RANGE REFERENCE UNITS LAB 49258-3(LOINC) HBV surface Ab Ser Ql Negative Result Comment: No serologic al evidence of immunity to Hepatitis B Virus. LAB 49141-0(LOINC) HBV surface Ab Ser-aCnc <8.00 mIU/mL Result Comment: <8 mIU/mL: N o serological evidence of immunity to Hepatitis B Virus. >/= 8 to <12 mIU/mL: No serological evidence of immunity to Hepatitis B Virus. >/= 12 mIU/mL: Consistent with serological evidence of immunity to Hepatitis B Virus. Performed By: #### 52627-7, 5195-3 #### [facility] CLIA [id number] [address] [place] [address] [place] PROGRESS Observed: 10/12/2024 2:01 PM Status: COMPLETED Source: [facility] HNO ID: [id number] Author: BENJI FOUNTAIN MD Service: Hospital Medicine Author Type: Physician Type: Progress Notes Filed: 10/12/2024 14:23 Note Text: [facility] STAFF PHYSICIAN NOTE OF PERSONAL INVOLVEMENT IN [...] Observed: 10/12/2024 1:20 PM Status: COMPLETED Source: [facility] HNO ID: [id number] Author: MAHOGANY ORTIZ RN Service: Emergency Medicine Author Type: Registered Nurse Type: ED Notes Filed: 10/12/2024 13:48 Note Text: Patient to Dialysis at this time. ED NOTE Observed: 10/12/2024 1:00 PM Status: COMPLETED Source: [facility] HNO ID: [id number] Author: MAHOGANY ORTIZ RN Service: Emergency Medicine Author Type: Registered Nurse Type: ED Notes Filed: 10/12/2024 13:47 Note Text: Report given to dialysis nurse. HISTORY PHYSICAL Observed: 10/12/2024 11:12 AM Status: COMPLETED Source: [facility] HNO ID: [id number] Author: LINDA MANUEL MD Service: Hospital Medicine Author Type: Physician Type: H&P Filed: 10/12/2024 14:23 Note Text: HOSPITAL MEDICINE HISTORY AND PHYSICAL PCP: No primary care provider on file. PAGER COVERAGE: Please page 8th floor [phone], non-8th floor [phone] after 5pm . From 8am to 5pm [...] The patient reports that he declined a custodial stay in the summer last year as [...] (HCC) 2005 ESRD from HTN Dialysis M,W,F [facility] [phone] Essential hypertension, benign 1998 EKG 09/30 NL. [...] Paroxysmal atrial fibrillation (HCC) PE (pulmonary thromboembolism) ([facility]) Pelvic mass Pseudoaneurysm of AV hemodialysis fistula ([facility]) Wound of right side of back from friction/rubbing of jacket, goes to wound care center in [place] Past Surgical History: PAST SURGICAL HISTORY Procedure 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 01/17/2013 [facility] CARDIAC RADIOFREQUENCY ABLATION 08/21/2021 s/p Maze procedure SHX MITRAL VALVE REPLACEMENT 08/21/2021 Family History: FAMILY HISTORY Adopted: Yes Problem Relation Age of Onset None Mother None Father Aneurysm No Family History Social History: Social History Tobacco Use Smoking status: Never Smokeless tobacco: Never Vaping Use Vaping status: Never Used Substance Use Topics Alcohol use: No 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 Personal history of DVT (deep vein thrombosis) PAF (paroxysmal atrial fibrillation) ([facility]) History of stroke Hypotension, chronic Chronic pain [...] Code Disposition: TBByron Linda Manuel MD Pager [phone] October 12, 2024 11:12 AM BAS METAB 2000 PNL SERPL Collected: 10:13 AM Status: F Source: [facility] Order Comment: Specimen Type : BLOOD SPECIMEN Ordering Facility: [facility] Address: [address] [place] [address] TYPE CODE TESTS RESULT OUT OF RANGE REFERENCE UNITS LAB 2345-7(LOINC) Glucose SerPl-mCnc 89 74-99 mg/dL Result Comment: The [place] Diabetes Association (ADA) provides guidance for cutoff [...] Standards of Medical Care in Diabetes 2016, [place] Diabetes Association. Diabetes Care. 2016.39(Suppl 1). LAB 3094-0(LOINC) BUN SerPl-mCnc 72 High 9-24 mg/ dL LAB 2160-0(LOINC) Creat SerPl-mCnc 11.98 High 0.73-1.22 mg/dL LAB 2951-2(LOINC) Sodium SerPl-sCnc 137 136-144 mmol/L LAB 2823-3(LOINC) Potassium SerPl-sCnc 5.5 High 3.7-5.1 mmol/L LAB 2075-0(LOINC) Chloride SerPl-sCnc 94 Low 98-107 mmol/L LAB 2028-9(LOINC) CO2 SerPl-sCnc 17 Low 22-30 mmo l/L LAB 36184-1(LOINC) Anion Gap SerPl-sCnc 26 High 8-15 mmol/L LAB 96895-1(LOINC) Calcium SerPl-mCnc 8.6 8.5-10.2 mg/dL LAB 02347-5(LOINC) Creatinine + eGFR Pnl SerPlBld 5 Low [...] accurately reflect actual GFR. Performed By: #### 46452-0, 2276-4, 85401-4 #### [facility] CLIA [id number] [address] [place] [address] [place] PROCALCITONIN SERPL-MCNC Collected: 10/12/2024 10:13 AM Status: F Source: [facility] Order Comment: Specimen Type : BLOOD SPECIMEN Ordering Facility: [facility] Address: [address] [place] [address] TYPE CODE TESTS RESULT OUT OF RANGE REFERENCE UNITS LAB 17811-4([facility]) Procalcitonin SerPl-mCnc 3.59 High <0.09 ng/mL Result Comment: For a guided interpretation of test results, please visit the Change in Procalcitonin Calculator, [email or web address]. Performed By: #### 90415-6, 2276-4, 29910-0 #### [facility] CLIA [id number] [address] [place] [address] [place] FERRITIN SERPL-MCNC Collected: 10/12/19 10:13 AM Status: F Source: [facility] Order Comment: Specimen Type : BLOOD SPECIMEN Ordering Facility: [facility] Address: [address] [place] [address] TYPE CODE TESTS RESULT OUT OF RANGE REFERENCE UNITS LAB 2276-4(LOINC) Ferritin SerPl-nc 1254.0 High 30.3-565.7 ng/mL Performed By: #### 76606-8, 2276-4, 54514-5 #### [facility] CLIA [id number] [address] [place], [place] [address] [address] [place] XR CHEST 1V FRONTAL PORT Observed: 10/12 9:06 AM Status: F Source: [facility] * * *Final Report* * * DATE [...] opacities with possible trace LEFT pleural effusion. Market Relationship Manager: PSCB Transcribe Date/Time: Oct 12 2024 9:43A Dictated by : NOAH HARDING MD This examination was interpreted and the report reviewed and electronically signed by: NOAH HARDING MD on Oct 12 2024 9:53AM EST [id number] PNL PPP Collected: 10/12/2024 8:48 AM Status: F Source: [facility] Order Comment: Specimen Type : BLOOD SPECIMEN Ordering Facility: [facility] Address: [address] [place] [address] TYPE CODE TESTS RESULT OUT OF RANGE REFERENCE UNITS LAB 5902-2(LOINC) Prothrombin time 13.0 9.7-13.0 sec LAB 6301-6(LOINC) INR PPP 1.2 0.9-1.3 Result Comment: Vitamin K An tagonist (VKA) Therapeutic Range: INR 2 to 3 (Target INR of 2.5) Note: For patients treated with VKA drugs, such as warfarin, the [employer] 2012 Guideline recommends [...] JACC 2017, 70: 252-289 Performed By: #### 38613-6 # ### [facility] CLIA [id number] [address] [place], [place] [address] [place] [address] [place] ED NOTE Observed: 10/12/2024 7:22 AM Status: COMPLETED Source: [facility] HNO ID: [id number] Author: INDY GIFFORD MD Service: Emergency Medicine [...] (ANC) 4.02 Lymph% 16.5 Abs Lymph 1.00 Fentress% 10.2 Abs Fentress 0.62 Eosin% 5.9 Abs Eosin 0.36 Baso% [...] ESRD (end stage renal disease) on dialysis ([facility]) H/O mitral valve replacement with mechanical valve Abdominal wall skin ulcer, with unspecified severity ([facility]) Wounds, multiple Subtherapeutic anticoagulation Hyperkalemia Under my [...] with the resident. 44-year-old male presents to [facility] emergency department from home in [place] area evaluated this morning. There was full sentences in the emergency department for peds inpatient patient arrived in emergency department 182 last evening not evaluated fully until dayshift this morning. He has history of end-stage renal disease with hemodialysis Friday at [facility]. He also has history of prosthetic [...] Observed: 10/12/2024 6:35 AM Status: F Source: [facility] Ventricular Rate : 87 BPM Atrial Rate : 87 BPM P-R Interval : 222 ms QRS Duration : 76 ms Q-T Interval : 388 ms QTC Calculation(Bazett) : 466 ms Calculated P [place] : 67 degrees Calculated R [place] : 145 degrees Calculated T [place] : 88 degrees SINUS RHYTHM WITH 1ST DEGREE AV BLOCK RIGHT AXIS DEVIATION Septal Infarct , AGE UNDETERMINED ABNORMAL ECG Confirmed by INDY GIFFORD M.D. ([id number]), technical writer and editor DELVIN HUNT ([id number]) on 10/12/2024 12:41:48 PM NAME : ELIA WESTON PID : [id number] : 1980 Gender : Male Race : ORD : [id number] Procedure Date : Oct 12 2024 06:35:05 Edit Date : Oct 12 2024 12:41:51 Diagnosis: SINUS RHYTHM WITH 1ST DEGREE AV BLOCK RIGHT AXIS DEVIATION Septal Infarct , AGE UNDETERMINED ABNORMAL ECG Confirmed by INDY GIFFORD M.D. ([id number]), technical writer and editor DELVIN HUNT ([id number]) on 10/12/2024 12:41:48 PM Test Reason : Chest Pain Location : 2 : EDNS I551-075 Overread By : INDY GIFFORD M.D. Edited By : DELVIN HUNT Referred By : , Acquired by : MARIE bajwa PROV NOTE Observed: 10/12/2024 6:26 AM Status: COMPLETED [facility] [id number] Author: INDY GIFFORD MD Service: Emergency Medicine [...] on Coumadin and Amiodarone BMI 40.0-44.9, adult ([facility]) ESRD (end stage renal disease) on dialysis ([facility]) 2005 ESRD from HTN Dialysis M,W,F [facility] [phone] Essential hypertension, benign 1998 EKG 09/30 NL. Hearing loss of both ears History of mitral valve stenosis Hx of bacterial endocarditis Hyperparathyroidism due to end stage renal disease on dialysis ([facility]) Kidney disease 2005 ESRD due to HTN; on IHD since 2005 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 and scoliosis h/o this 3 y. Dx by xray. Mechanical complication of arteriovenous fistula surgically created ([facility]) Mechanical complication of dialysis catheter ([facility]) Mitral valve disease Morbid obesity ([facility]) MS (mitral stenosis) 10/08/2018 Transesophageal US YEIMY on CPAP Paroxysmal atrial fibrillation ([facility]) PE (pulmonary thromboembolism) ([facility]) Pelvic mass Pseudoaneurysm of AV hemodialysis fistula ([facility]) Wound of right side of back from 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 01/17/2013 SHX CARDIAC RADIOFREQUENCY ABLATION 08/21/2021 s/p [...] laboratory APTT reagent in use throughout the [facility]. SEPSIS LACTATE W/ REFLEX (INITIAL) - Normal [...] (ANC) 4.02 Lymph% 16.5 Abs Lymph 1.00 [place]% 10.2 Abs [place] 0.62 Eosin% 5.9 Abs Eosin 0.36 Baso% 0.7 Abs Baso 0.04 Immature Gran % 0.5 IMMATURE GRANS (ABS) 0.03 NRBC 0.0 Absolute nRBC <0.01 DTYPE Auto CBC with stable, chronic anemia. No leukocytosis or thrombocytopenia 0631 Lactate: 1.5 0708 EKG w/o hyperK changes 0708 B-Hydroxybutyrate: 0.10 Clinical Impressions as of 10/12/24 0839 ESRD (end stage renal disease) on dialysis ([facility]) H/O mitral valve replacement with mechanical valve Abdominal wall skin ulcer, with unspecified severity ([facility]) Wounds, multiple Subtherapeutic anticoagulation Hyperkalemia MDM / [...] with the resident. 44-year-old male presents to [facility] emergency department from home in [facility] evaluated this morning. There was full sentences in the emergency department for peds inpatient patient arrived in emergency department 1825 last evening not evaluated fully until dayshift this morning. He has history of end-stage renal disease with hemodialysis Friday at [facility]. He also has history [...] Observed: 10/12/2024 6:22 AM Status: F Source: [facility] CULTURE, BLOOD: No growth 5 days Performed By: #### 600-7 ### # [facility] CLIA [id number] [address] [place] [address] [place] SEPSIS LACTATE W/ REFLEX (INITIAL) Collected: 10/12/2024 5:31 AM Status: F Source: [facility] Order Comment: Specimen Type : BLOOD SPECIMEN Ordering Facility: [facility] Address: [address] [place] [address] TYPE CODE TESTS RESULT OUT OF RANGE REFERENCE UNITS LAB 83660-8([facility]) Lactate Bld-sCnc 1.5 <=2.0 mmol/L Performed By: #### SLACTR ## ## [facility] CLIA [id number] [address] [place] [address] [place] BACTERIA BLD CULT Observed: 10/12/2024 5:31 AM Status: F Source: [facility] CULTURE, BLOOD: No growth 5 days Performed By: #### 600-7 ### # [facility] CLIA [id number] [address] [place] [address] [place] COMP METAB 2000 PNL SERPL Collected: 5:31 AM Status: F Source: [facility] Order Comment: Specimen Type : BLOOD SPECIMEN Ordering Facility: [facility] Address: [address] [place] [address] TYPE CODE TESTS RESULT OUT OF RANGE REFERENCE UNITS LAB 2885-2(LOINC) Prot SerPl-mCnc 8.5 High 6.3-8.0 g/dL LAB 1751-7(LOINC) Albumin SerPl-mCnc 3.9 3.9-4.9 g/dL LAB 49000-5(LOINC) Calcium SerPl-mCnc 9.0 8.5-10.2 mg/dL LAB 1975-2(LOINC) Bilirub SerPl-mCnc 0.3 0.2-1.3 mg/dL LAB 6768-6(LOINC) ALP SerPl-cCnc 179 High 38-113 U/L LAB 1920-8(LOINC) AST SerPl-cCnc 16 14-40 U/L LAB 1742-6(LOINC) ALT SerPl-cCnc 13 10-54 U/L LAB 2345-7(LOINC) Glucose SerPl-mCnc 79 74-99 mg/dL Result Comment: The [place] Diabetes Association (ADA) provides guidance for cutoff [...] Standards of Medical Care in Diabetes 2016, [place] Diabetes Association. Diabetes Care. 2016.39(Suppl 1). LAB 3094-0(LOINC) BUN SerPl-mCnc 72 High 9-24 mg/ dL LAB 2160-0(LOINC) Creat SerPl-mCnc 12.12 High 0.73-1.22 mg/dL LAB 2951-2(LOINC) Sodium SerPl-sCnc 137 136-144 mmol/L LAB 2823-3(LOINC) Potassium SerPl-sCnc 6.2 High Alert 3.7-5.1 mmol/L LAB 2075-0(LOINC) Chloride SerPl-sCnc 94 Low 98-107 mmol/L LAB 2028-9(LOINC) CO2 SerPl-sCnc 19 Low 22-30 mmo l/L LAB 96906-3(LOINC) Anion Gap SerPl-sCnc 24 High 8-15 mmol/L LAB 73800-8(LOINC) Creatinine + eGFR Pnl SerPlBld 5 Low [...] GFR. Performed By: #### 1987-5, B DES, 88558-9 #### [facility] CLIA [id number] [address] [place] [address] [place] B-HYDROXYBUTYRATE Collected: 5 5:31 AM Status: F Source: [facility] Order Comment: Specimen Type : BLOOD SPECIMEN Ordering Facility: [facility] Address: [address] [place] [address] TYPE CODE TESTS RESULT OUT OF RANGE REFERENCE UNITS LAB 6873-4(LOINC) B-OH-Butyr SerPl-sCnc 0.10 <0.28 mmol/L Result Comment: This test wa s developed, and its performance characteristics determined by the [facility] Department of Pathology and Laboratory Medicine. It has not been cleared or approved by the FDA. The [facility] Department of Pathology and Laboratory Medicine is regulated under CLIA as qualified to perform high-complexity testing. This test is used for clinical purposes. It should not be regarded as investigational or for research. Performed By: #### 1987-, [place], [address]-6 #### [facility] CLIA [id number] [address] [place] [address] [place] CRP SERPL-MCNC Collected: 10/12/2024 5:31 AM Status: F Source: [facility] Order Comment: Specimen Type : BLOOD SPECIMEN Ordering Facility: [facility] Address: [address] [place] [address] TYPE CODE TESTS RESULT OUT OF RANGE REFERENCE UNITS LAB 1988-01(LOINC) CRP SerPl-mCnc 3.4 High <0.9 mg/dL Performed By: #### 1987-, [place], [address]-2 #### [facility] CLIA [id number] [address] [place] [address] [place] PT PNL PPP Collected: 10/12/2024 5:31 AM Status: F Source: [facility] Order Comment: Specimen Type : BLOOD SPECIMEN Ordering Facility: [facility] Address: [address] [place] [address] TYPE CODE TESTS RESULT OUT OF RANGE REFERENCE UNITS LAB 5902-2(LOINC) Prothrombin time 13.0 9.7-13.0 sec LAB 6301-6(LOINC) INR PPP 1.2 0.9-1.3 Result Comment: Vitamin K An tagonist (VKA) Therapeutic Range: INR 2 to 3 (Target INR of 2.5) Note: For patients treated with VKA drugs, such as warfarin, the [place] College [employer] 2012 Guideline recommends [...] JACC 2017, 70: 252-289 Performed By: #### 28915-1, 69820-6 #### [facility] CLIA [id number] [address] [place] [address] OF [facility] APTT PPP Collected: 5:31 AM Status: F Source: [facility] Order Comment: Specimen Type : BLOOD SPECIMEN Ordering Facility: [facility] Address: [address] [place] [address] TYPE CODE TESTS RESULT OUT OF RANGE REFERENCE UNITS LAB 97826-4([facility]) aPTT PPP 32.8 High 23.0-32.4 sec Performed By: #### 58802-7, 39927-8 #### [facility] CLIA [id number] [address] [place] [address] [place] CBC W AUTO DIFF BLD Collected: 10/12/2024 5:[address] atus: F Source: [facility] Order Comment: Specimen Type : BLOOD SPECIMEN Ordering Facility: [facility] Address: [address] [place] [address] TYPE CODE TESTS RESULT OUT OF RANGE [...] MCHC RBC Auto-mCnc 30.7 30.5-36.0 g/dL LAB 12027-7(LOINC) RDW RBC-Rto 17.8 High 11.5-15.0 % LAB 777-3(LOINC) Platelet # Bld Auto 248 150-400 k/uL LAB 44523-8([facility]) PMV Bld Auto 9.9 9.0-12.7 fL LAB 770-8([facility]) Neutrophils/leuk NFr Bld Auto 66.2 % LAB 751-8([facility]) Neutrophils # Bld Auto 4.02 1.45-7.50 k/uL LAB 736-9([facility]) Lymphocytes/leuk NFr Bld Auto 16.5 % LAB 731-0([facility]) Lymphocytes # Bld Auto 1.00 1.00-4.00 k/uL LAB 5905-5([facility]) Monocytes/leuk NFr Bld Auto 10.2 % LAB 742-7([facility]) Monocytes # Bld Auto 0.62 <0.87 k/uL LAB 713-8([facility]) Eosinophil/leuk NFr Bld Auto 5.9 % LAB 711-2([facility]) Eosinophil # Bld Auto 0.36 <0.46 k/uL LAB 706-2([facility]) Basophils/leuk NFr Bld Auto 0.7 % LAB 704-7([facility]) Basophils # Bld Auto 0.04 <0.11 k/uL LAB 32413-7([facility]) Imm Granulocytes/fely k NFr Bld Auto 0.5 % LAB 43867-4([facility]) Imm Granulocytes # Bld Auto 0.03 <0.10 k/uL LAB 47521-7([facility]) nRBC/100 WBC Bld-Rto 0.0 /100 WBC LAB 771-6([facility]) nRBC # Bld Auto <0.01 <0.01 k/u L LAB 92149-5([facility]) Differential method Bld Auto Performed By: #### 30069-2, 4537-7 #### [facility] CLIA [id number] [address] [place] [address] [place] ESR BLD QN WESTRGRN Collected: 10/12/2024 5:[address] atus: F Source: [facility] Order Comment: Specimen Type : BLOOD SPECIMEN Ordering Facility: [facility] Address: [address] [place] [address] TYPE CODE TESTS RESULT OUT OF RANGE REFERENCE UNITS LAB 4537-7(LOINC) ESR Bld Qn Westrgrn 130 High 0-15 mm/hr Performed By: #### 81144-9, 4537-7 #### [facility] CLIA [id number] [address] [facility] [address] OF [facility] ED NOTE Observed: 10/12/2024 5:30 AM Status: COMPLETED Source: [facility] HNO ID: [id number] Author: ANNIE BAH Medic Service: Emergency Medicine Author Type: [employer] Client [employer] Analyst and Care Worker Type: ED Notes Filed: 10/12/2024 05:43 Note Text: Pt refused 2nd IV due to pain ED NOTE Observed: 10/12/2024 2:44 AM Status: COMPLETED Source: [facility] HNO ID: [id number] Author: LIZZY SANTANA, CT Service: ? Author Type: Clinical Care Worker Type: ED Notes Filed: 10/12/2024 02:44 Note Text: Pt declined updating vs ED NOTE Observed: 10/11/2024 10:34 PM Status: COMPLETED Source: [facility] HNO ID: [id number] Author: LIZZY SANTANA, VIKA Service: ? Author Type: Clinical Care Worker Type: ED Notes Filed: 10/11/2024 22:34 Note Text: Updating pt vs ED TRIAGE NOTE Observed: 10/11/2024 6:46 PM Status: COMPLETED Source: [facility] HNO ID: [id number] Author: DYLAN CHIN MD Service: Emergency Medicine [...] Observed: 09/10/2024 12:05 PM Status: COMPLETED Source: [facility] HNO ID: [id number] Author: LINDSEY WRAY RN Service: ? Author Type: Registered Nurse Type: Progress Notes Filed: 09/10/2024 12:08 Note Text: ED Follow-Up Note Provider Action / FYI: Outreach to pt but unable to reach as message states pt not accepting calls and unable to leave a message Pt did complete a f/u vs with a new provider from [facility] on 09/06/24 Call completed by: RN Patient seen in ED: Out of Network ED Contact made with Patient: No, unable to leave message. Third attempt - patient is unable to be reached. Lindsey Wray RN September 10, 2024 12:08 PM PROGRESS Observed: 09/07/2024 1:12 PM Status: COMPLETED Source: [facility] HNO ID: [id number] Author: LINDSEY WRAY RN Service: ? Author [...] Observed: 09/07/2024 12:00 AM Status: COMPLETED Source: [facility] Patient Outreach ([facility]) ELIA WESTON ([id number]) 1980 M T Date Time Provider Department [...] f/u vs with a new provider from [facility] on 09/06/24 Call completed by: RN Patient [...] Take 1 tablet by mouth twice weekly i0esxcm, then decrease to 1 tablet weekly. - [...] by this patient by: PATIENT Nini Redd, [facility] Problem List As Of Date 09/07/2024 Noted Resolved ESRD (end stage renal disease) on dialysis ([facility]*10/16/2012 HTN (hypertension) [I10] 10/16/2012 Obesity [E66.9] 11/02/2012 Epigastric pain [R10.13] 11/02/2012 Mechanical complication of other vascular devic*02/12/2013 Right knee pain [M25.561] 07/29/2013 Obesity, morbid, BMI 40.0-49.9 ([facility]) [E66.01] 02/22/2014 Tendinitis of left shoulder [M77.8] 02/22/2014 Mass of left thigh [R22.42] 09/08/2014 Thigh pain [M79.659] 09/08/2014 Hematuria [R31.9] 12/08/2014 Dialysis patient ([facility]) [Z99.2] 12/08/2014 YEIMY (obstructive sleep apnea) [G47.33] 05/09/2015 Abdominal or pelvic swelling, mass, or lump, ri*05/09/2015 Secondary hyperparathyroidism of renal origin (*05/09/2015 Renal osteodystrophy [N25.0] 05/09/2015 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*05/09/2015 Groin pain [R10.30] 05/09/2015 Personal history of DVT (deep vein thrombosis) *03/28/2016 Sprain of medial collateral ligament of right k*04/22/2016 ESRD (end stage renal disease) ([facility]) [N18.6] 04/21/2019 PAF (paroxysmal atrial fibrillation) ([facility]) [I48*12/02/2018 A-V fistula ([facility]) [I77.0] 04/23/2019 Anemia of chronic disease [D63.8] 04/23/2019 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] 05/18/2021 End-stage renal disease on hemodialysis ([facility]) [*04/07/2019 Expressive dysphasia [R47.02] 08/01/2021 History of endocarditis [Z86.79] 08/01/2021 Hearing loss [H91.90] 02/17/2018 History of non-ST elevation myocardial infarcti*11/08/2019 Heart failure, unspecified ([facility]) [I50.9] 08/05/2011 Iron deficiency anemia, unspecified [D50.9] 05/31/2008 Chronic anticoagulation [Z79.01] 08/01/2021 Mitral valve disease [I05.9] 08/01/2021 Myocardial infarction ([facility]) [I21.9] 08/01/2021 Noncompliance with medication regimen [Z91.148] 08/01/2021 Paroxysmal atrial flutter ([facility]) [I48.92] 08/01/2021 Pulmonary embolism ([facility]) [I26.99] 08/01/2021 Pulmonary edema [J81.1] 08/01/2021 Stenosis of other vascular prosthetic devices, *05/22/2021 Unspecified atherosclerosis of [place] arteries *10/30/2013 Vitamin D deficiency, unspecified [E55.9] [...] Observed: 07/20/2024 12:00 AM Status: COMPLETED Source: [facility] Telephone (FAMPWS) ELIA WESTON ([id number]) 1980 M T Date Time Provider Department [...] Take 1 tablet by mouth twice weekly d8prrih, then decrease to 1 tablet weekly. - [...] by this patient by: PATIENT Nini Redd [facility] Problem List As Of Date 07/20/2024 Noted Resolved ESRD (end stage renal disease) on dialysis ([facility]*10/16/2012 HTN (hypertension) [I10] 10/16/2012 Obesity [E66.9] 11/02/2012 Epigastric pain [R10.13] 11/02/2012 Mechanical complication of other vascular devic*02/12/2013 Right knee pain [M25.561] 07/29/2013 Obesity, morbid, BMI 40.0-49.9 ([facility]) [E66.01] 02/22/2014 Tendinitis of left shoulder [M77.8] 02/22/2014 Mass of left thigh [R22.42] 09/08/2014 Thigh pain [M79.659] 09/08/2014 Hematuria [R31.9] 12/08/2014 Dialysis patient ([facility]) [Z99.2] 12/08/2014 YEIMY (obstructive sleep apnea) [G47.33] 05/09/2015 Abdominal or pelvic swelling, mass, or lump, ri*05/09/2015 Secondary hyperparathyroidism of renal origin (*05/09/2015 Renal osteodystrophy [N25.0] 05/09/2015 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*05/09/2015 Groin pain [R10.30] 05/09/2015 Personal history of DVT (deep vein thrombosis) *03/28/2016 Sprain of medial collateral ligament of right k*04/22/2016 ESRD (end stage renal disease) ([facility]) [N18.6] 04/21/2019 PAF (paroxysmal atrial fibrillation) ([facility]) [I48*12/02/2018 A-V fistula ([facility]) [I77.0] 04/23/2019 Anemia of chronic disease [D63.8] 04/23/2019 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] 05/18/2021 End-stage renal disease on hemodialysis ([facility]) [*04/07/2019 Expressive dysphasia [R47.02] 08/01/2021 History of endocarditis [Z86.79] 08/01/2021 Hearing loss [H91.90] 02/17/2018 History of non-ST elevation myocardial infarcti*11/08/2019 Heart failure, unspecified ([facility]) [I50.9] 08/05/2011 Iron deficiency anemia, unspecified [D50.9] 05/31/2008 Chronic anticoagulation [Z79.01] 08/01/2021 Mitral valve disease [I05.9] 08/01/2021 Myocardial infarction ([facility]) [I21.9] 08/01/2021 Noncompliance with medication regimen [Z91.148] 08/01/2021 Paroxysmal atrial flutter ([facility]) [I48.92] 08/01/2021 Pulmonary embolism ([facility]) [I26.99] 08/01/2021 Pulmonary edema [J81.1] 08/01/2021 Stenosis of other vascular prosthetic devices, *05/22/2021 Unspecified atherosclerosis of [place] arteries *10/30/2013 Vitamin D deficiency, unspecified [E55.9] [...] / CODE REACTION SEVERITY SOURCE 10/11/2024 DRUG INGREDI/[id number]( SNOMED CT) TRAZODONE OTHER: SEE C [facility] 08/09/2021 DRUG INGREDI/[id number]( SNOMED CT) GABAPENTIN UNKNOWN Med [facility] ENCOUNTERS ADMIT/DISCHARGE ACCOUNT NUMBER ADMITTING ENCOUNTER CLASS LOCATION SOURCE 06/27/2025/06/27/20 [id number] Ambulatory [facility] HospitalBuild ing:JANET [facility] 06/23/2025/06/23/20 [id number] [facility]sw: [id number]: E009-12 [facility] 06/16/2025/06/16/20 [id number] Ambulatory [facility] HospitalBuild ing:ORTH [facility] 06/13/2025/06/13/20 [id number] Ambulatory [facility] HospitalBuild ing:WOLB [facility] 05/31/2025/05/31/20 [id number] Emergency [facility] HospitalBuild ing:PVLB [facility] 05/31/2025/06/08/20 [id number] RIVAS SOLITARIO Inpatient Encounter [facility] HospitalBuild ing:M392Oeog: [id number]: H081-15 [facility] 04/20/2025/05/27/20 [id number] MAURILIO CINTRON [facility]X641Effp: [id number]: G080-25 [facility] 01/05/2025/01/06/20 [id number] Ambulatory [facility] [address] [facility] 12/28/2024/12/30/19 [id number] Emergency [facility] HospitalBuild ing:[id number]: [id number]: E18-04 [facility] 12/26/2024/12/27/19 [id number] Emergency Building:[facility] oom: 11Bed: 11 [facility] PAYERS ENCOUNTER GUARANTOR PAYER SUBSCRIBER SOURCE 06/27/2025 Primary Insurance:[facility] MEDIC[facility] [id number] Date:8274-34-95Ezfu Name:Uzma DO: [id number] [place] [address] [facility] 06/23/2025 Primary Insurance:[facility] MEDICARE ADVANTAGE OPolicy Number: [id number] Date:3457-16-14Hqhi Name:Uzma DO: [id number] [place] [address] [facility] 06/16/2025 Primary Insurance:[facility] MEDIC[facility] ADVANTAGE [facility]: [id number] Date:4487-84-48Bqea Name:Uzma DO: [id number] [place] [address] [facility] 06/13/2025 Primary Insurance:[facility] MEDICARE ADVANTAGE HMOPolicy Number: [id number] Date:3519-80-74Jwjb Name:Uzma DO: [id number] [place] [address] [facility] 05/31/2025 Primary Insurance:[facility] MEDICARE ADVANTAGE HMOPolicy Number: [id number] Date:8214-55-30Akgy Name:Uzma MELENDEZB: [id number] [place] [address] [facility] 05/31/2025 Primary Insurance:[facility] MEDICARE ADVANTAGE HMOPolicy Number: [id number] Date:8100-45-09Fnxw Name:Uzma DO: [id number] [place] [address] [facility] 04/20/2025 Primary Insurance:[facility] MEDICARE ADVANTAGE HMOPolicy Number: [id number] Date:1190-59-11Mhgu Name:Uzma DO: [id number] [place] [address] [facility] 01/05/2025 Primary Insurance:[facility] MEDICARE ADVANTAGEPolicy Number: [id number] Date:5824-42-86Vhyq Name:Medicare HMO ELIA DO: [id number] [place] [address] [facility] 12/28/2024 Primary Insurance:[facility] MEDICARE ADVANTAGE HMOPolicy Number: [id number] Date:4732-30-43Dyvm Name:Uzma DO: [id number] [place] [address] [facility] 12/26/2024 ELIA DO: [place] [address]Xnl: () Primary Insurance:[facility] [place] MEDICAREPolicy Number: [id number] Date:2765-97-59[id number], [place] [address]JZ: ELIA DO: [id number] [place], [place] [address]Dts: () [facility]
[2025-06-28 11:17] LABS: Hematocrit 26.6 % (40-54); Hemoglobin 8.0 g/dL (13.0-16.5); Immature Granulocytes Count 0.030 X10^3/uL (0.0-0.0); Mean Corp Hgb Conc 30.1 g/dL (32-36); Mean Corpuscular Volume 95.0 fL (80-94); Mean Platelet Vol. 10.6 fl (6.2-12.0); NRBC Flagged by Analyzer 0 % (0-5); Platelet Count 189 K/mm3 (150-450); RBC Distribution Width CV 18.3 % (11.6-14.6); RBC Distribution Width SD 62.1 fl (35.1-43.9); Red Blood Count 2.80 M/mm3 (4.6-6.2); White Blood Count 5.6 K/mm3 (4.4-11.0)
== END | disposition home or self-care (01) ==
PROVIDERS: PCP Pediatrics; Referring Provider Nurse Practitioner Gerontology; Visit Provider Nurse Practitioner Gerontology
DX: N18.9 Chronic kidney disease, unspecified (principal); D63.1 Anemia in chronic kidney disease
CPT/HCPCS: 36415; 85025

== ENCOUNTER 2025-07-03 17:17 | Emergency (ER) | payer MEDICARE, SELFPAY ==
[2025-07-03 17:19] VITALS: BP 86/37; PULSE 92; RESP 22; TEMP 36.1; O2SAT 99
[2025-07-03 17:39] VITALS: BP 118/68
[2025-07-03 18:06] VITALS: BP 116/79
--- NOTE | 2025-07-03 18:13 | EKG12_ITS ---
Test Reason : DYSRHYTHMIA Blood Pressure : */* mmHG Vent. Rate : 85 BPM Atrial Rate : * BPM P-R Int : * ms QRS Dur : 70 ms QT Int : 392 ms P-R-T Axes : * 168 78 degrees QTcB Int : 466 ms Atrial fibrillation Low voltage QRS Possible Anterolateral infarct (cited on or before 04-Jul-2019) Abnormal ECG Confirmed by SALMA STAHL, JACOBY ([id number]), newspaper editor managing JOSEPH BRIONES ([id number]) on 07/04/2025 8:37:50 AM Referred By: Confirmed By: JACOBY MARSH MD
--- NOTE | 2025-07-03 18:25 | EX.ED.DYSGE1 ---
HPI History of Present Illness Chief Complaint: Hypotension Narrative Narrative: Chief complaint and HPI: 45-year-old male with past medical history of ESRD on HD Friday/Friday/Friday, central retinal artery occlusion of the left eye, atrial flutter on warfarin, mechanical valve on warfarin, proximal A-fib presents for concern of anemia. Patient states he has chronic wounds to the body that periodically bleed. He states that they bled on 06/24 when he was seen in our emergency department. Patient shortly after that he began having intermittent hypotension, fatigue, lightheadedness in which she had outpatient blood work performed and was found to be anemic. He states he required a blood transfusion at [facility]. Patient states his symptoms improved however today he began having increased fatigue, intermittent lightheadedness. He states this happens when he is hypotensive and anemic which is why he presents to the emergency department. He denies any current wound bleeding. He denies any current wound infection. He denies any fever, chills, shortness of breath, chest pain abdominal pain, nausea, vomiting, diarrhea. He does not make urine. Review of systems: See HPI Medications: As listed on the chart Allergies: As listed on the chart PFSH: Per chart Vital signs: As listed on the chart. Reviewed. Physical exam: Gen: A&O x3, NAD Head: Normocephalic, atraumatic Eyes: No sclera icterus, conjunctiva clear ENT: Moist mucous membranes Neck: Trachea midline CV: RRR, no murmurs, right HD catheter without signs of infection Resp: Lungs CTA BL, no w/r/c GI: Abd soft, non-distended, non-tender, no r/r/g Musc: Full ROM, no deformity Skin: Warm, dry, he has multiple chronic wounds to the back, chest, abdomen all which are not infected or bleeding Neuro: Alert, oriented, grossly intact, sensation intact Psych: Cooperative, appropriate mood and affect [facility] Medical History (Reviewed 06/28/25 @ 13:53 by Trisha Minor CLINICAL LABORATORY TECHNICIAN, CLINICAL LABORATORY TECHNICIAN-C) First degree AV block Warfarin-induced coagulopathy End-stage renal disease on hemodialysis Chest pain Right arm weakness Pain in right shoulder ESRD (end stage renal disease) 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) Anemia in chronic kidney disease Dyspnea Secondary renal hyperparathyroidism Abdominal wall cellulitis Thrombosis of kidney dialysis arteriovenous graft COVID-19 virus detected (10/02/21) Dental caries Dialysis AV fistula malfunction Postoperative complete heart block (08/21/21) Hypotension of hemodialysis Pain of right lower extremity Medication side effects Chronic ulcer of back Sepsis Non-healing non-surgical wound Daily headache 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 current use of anticoagulant Mitral valve annular calcification Central retinal artery occlusion of left eye (10/09/20) History of non-ST elevation myocardial infarction (NSTEMI) (11/08/19) 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 History of bacterial endocarditis Mechanical complication of arteriovenous fistula surgically created Obstructive sleep apnea Non compliance w medication regimen Nonrheumatic mitral valve stenosis with insufficiency 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) Atrial flutter with rapid ventricular response (07/2020) Essential (primary) hypertension History of venous thromboembolism History of pulmonary embolus (PE) Bilateral carotid artery stenosis Paroxysmal atrial fibrillation (06/10/20) Unspecified symptoms and signs involving cognitive functions and awareness (04/05/20) 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) Expressive aphasia (04/05/20) ESRD on hemodialysis Dialysis patient Chronic kidney disease-mineral and bone disorder Chronic pelvic pain in male Pelvic mass Hematuria History of blood clots Hearing loss Hyperparathyroidism due to renal insufficiency Morbidly obese Home Medications ?Medication ?Instructions ?Recorded ?Last Taken ?Type BP monitor #1 ea 07/17/21 Unknown Rx sucroferric oxyhydroxide 500 mg 1,500 mg PO TIDCM phosphate binder 11/11/23 04/06/25 History chewable tablet (Velphoro) cinacalcet 60 mg tablet 90 mg PO DAILY hormones 07/30/24 03/02/25 History levothyroxine 25 mcg tablet 25 mcg PO DAILY disorder of 07/30/24 04/07/25 History thyroid gland vitamin B complex-vitamin C-folic 1 tab PO DAILY vitamin 07/30/24 04/07/25 History acid 0.8 mg tablet (Juju-Tashi) midodrine 10 mg tablet 10 mg PO TID blood pressure #90 03/01/25 02/28/25 Rx tabs warfarin 4 mg tablet 4 mg PO .COMPLEX #100 tabs 06/23/25 Unknown Rx ascorbic acid (vitamin C) 500 mg 500 mg PO DAILY 06/24/25 Unknown History tablet doxycycline monohydrate 100 mg 100 mg PO BID 06/24/25 Unknown History tablet oxycodone 10 mg tablet 10 mg PO Q6H PRN pain 06/24/25 Unknown History aspirin 81 mg tablet,delayed 81 mg PO DAILY heart health #30 06/28/25 Unknown Rx release (Adult Aspirin Regimen) tabs metoprolol succinate 25 mg 25 mg PO QDAY #30 tabs 06/28/25 Unknown Rx tablet,extended release 24 hr Allergy/AdvReac Type Severity Reaction Status Date / Time trazodone Allergy Severe Jittery/Sha Verified 07/03/25 17:18 ky gabapentin Allergy Other Verified 07/03/25 17:18 Family History (Reviewed 06/28/25 @ 10:02 by Trisha Minor CLINICAL LABORATORY TECHNICIAN, CLINICAL LABORATORY TECHNICIAN-C) Other Adopted Surgical History (Reviewed 06/28/25 @ 13:53 by Trisha Minor CLINICAL LABORATORY TECHNICIAN, CLINICAL LABORATORY TECHNICIAN-C) History of mitral valve replacement with bioprosthetic valve (08/21/21) Hx of mitral valve replacement with mechanical valve S/P PICC central line placement (06/15/24) History of angioplasty of peripheral vessel (08/28/21) History of tooth extraction, class IV edentulism (09/11/21) History of right and left heart catheterization (08/16/21) Mechanical complication of dialysis catheter History of herniorrhaphy Status post creation of arteriovenous fistula History of cardioversion (12/02/18) History of repair of congenital cleft palate History of left heart catheterization (09/17/18) history of cather replacement Social History (Reviewed 06/28/25 @ 10:02 by Trisha Minor CLINICAL LABORATORY TECHNICIAN, CLINICAL LABORATORY TECHNICIAN-C) household members: none Smoking Status: Never smoker alcohol intake: never substance use type: marijuana what type of physical activity do you participate in: none EXAM Physical Exam Const Vital Signs: 07/03/25 17:19 07/03/25 17:36 07/03/25 17:39 Temperature 97 F L Temperature Source Temporal Pulse Rate 92 Respiratory Rate 22 H Respiratory Effort Normal Non-Labored Respiratory Pattern Normal Blood Pressure 86/37 L 118/68 Blood Pressure Mean 53 84 Pulse Ox 99 Oxygen Delivery Method Room Air 07/03/25 18:06 07/03/25 19:00 07/03/25 21:01 Temperature Temperature Source Pulse Rate 73 75 Respiratory Rate 12 Respiratory Effort Respiratory Pattern Blood Pressure 116/79 112/46 L 119/80 Blood Pressure Mean 91 68 93 Pulse Ox 95 Oxygen Delivery Method Room Air 07/03/25 21:14 Temperature 97.4 F L Temperature Source Pulse Rate 74 Respiratory Rate 20 H Respiratory Effort Respiratory Pattern Blood Pressure 115/65 Blood Pressure Mean 81 Pulse Ox 96 Oxygen Delivery Method MDM MDM MDM Narrative Medical decision making narrative: 45-year-old male with past medical history of ESRD on HD Friday/Friday/Friday, central retinal artery occlusion of the left eye, atrial flutter on warfarin, mechanical valve on warfarin, proximal A-fib presents for concern of anemia. Patient states he has chronic wounds to the body that periodically bleed. He states that they bled on 06/24 when he was seen in our emergency department. Patient shortly after that he began having intermittent hypotension, fatigue, lightheadedness in which she had outpatient blood work performed and was found to be anemic. He states he required a blood transfusion at [facility]. Patient states his symptoms improved however today he began having increased fatigue, intermittent lightheadedness. He states this happens when he is hypotensive and anemic which is why he presents to the emergency department. He denies any current wound bleeding. He denies any current wound infection. He denies any fever, chills, shortness of breath, chest pain abdominal pain, nausea, vomiting, diarrhea. On presentation, patient's original blood pressure was 86/37 however this quickly improved to a normal blood pressure without any intervention. Patient is nontoxic-appearing and afebrile. Physical exam unremarkable except for chronic wounds. Differential diagnosis includes but is not limited to dehydration, electrolyte abnormality, anemia, arrhythmia, orthostatic hypotension. Patient has no signs or symptoms of infection. Patient's blood pressure will be monitored closely. Laboratory workup ordered. Patient refused orthostatic vital signs. CBC unremarkable. Patient has baseline anemia of 9.3. Platelets unremarkable. INR 1.7. CMP shows ESRD with a BUN of 52 and a creatinine of 11. On chart review, this appears to be about his baseline right before dialysis. Patient will receive dialysis tomorrow. He is not overtly fluid overloaded on exam and he has no hyperkalemia and needed for emergent dialysis. No transaminitis. At this point in time, there is no clear etiology to explain patient's symptoms. Patient has remained hemodynamically stable in our emergency department without hypotension. I did speak with the nurses and they believe the blood pressure was not accurate when it originally was taken given that it was difficult to obtain due to position of the patient. On reevaluation, patient's lightheadedness has resolved. He was updated about all of his results and that there is no clear etiology for his symptoms. I did offer admission for observation to monitor his blood pressure closely here in the hospital. He declined. States he would like to discharge home. I do think this is appropriate as the workup has been unremarkable except for his baseline ESRD and patient has remained hemodynamically stable. Return precautions explained. He confirmed understand the plan. Patient was educated they need to get his dialysis tomorrow. EKG: Interpreted by me/EM physician: EKG shows atrial fibrillation with nonspecific ST changes. Heart rate 85. Diagnostic: Interpreted by me/EM physician: Chest x-ray without pneumonia, large effusion effusion, pneumothorax. Mild cardiomegaly. Catheter in place. Radiology in agreement. Impression: 1. Intermittent lightheadedness 2. Fatigue Lab Data Labs: Laboratory Results - last 24 hr 07/03/25 18:50 WBC 6.6 RBC 3.24 L Hgb 9.3 L Hct 29.6 L MCV 91.4 MCH 28.7 MCHC 31.4 L RDW Std Deviation 62.3 H RDW Coeff of Lance 19.0 H Plt Count 213 MPV 9.8 Immature Gran % (Auto) 0.500 Neut % (Auto) 66.7 Lymph % (Auto) 13.9 L Rush % (Auto) 14.2 H Eos % (Auto) 4.1 Baso % (Auto) 0.6 Absolute Neuts (auto) 4.4 Absolute Lymphs (auto) 0.91 Nucleated RBC % 0 PT 20.0 H INR 1.7 APTT 36.4 H Sodium 138 Potassium 4.7 Chloride 94 L Carbon Dioxide 23.3 Anion Gap 21 H BUN 52 H Creatinine 11.00 H* Est GFR (MDRD) Non-Af 5 L BUN/Creatinine Ratio 4.7 L Glucose 82 Calcium 10.2 Total Bilirubin 0.38 AST 25 ALT 18 Alkaline Phosphatase 124 Total Protein 8.6 H Albumin 4.1 Globulin 4.5 H Albumin/Globulin Ratio 0.9 Radiography Diagnostic Testing: Clinical Impression(s) from Imaging Studies Chest X-Ray 07/03/25 19:15 IMPRESSION: No acute airspace disease Reading [facility] Discharge Plan Triage Chief Complaint: Hypotension Other Complaint: Dizziness ED Provider: Wade Ritter Dx/Rx/DC Orders Clinical Impression: Light-headedness Instructions: ED Dizziness, Uncertain Cause Prescriptions: No Action levothyroxine 25 mcg tablet 25 mcg PO DAILY cinacalcet 60 mg tablet 90 mg PO DAILY Juju-Tashi 0.8 mg tablet 1 tab PO DAILY midodrine 10 mg tablet 10 mg PO TID Qty: 90 3RF metoprolol succinate 25 mg tablet extended release 24 hr 25 mg PO QDAY Qty: 30 11RF aspirin [Adult Aspirin Regimen] 81 mg tablet,delayed release (DR/EC) 81 mg PO DAILY Qty: 30 11RF Velphoro 500 mg tablet,chewable 1,500 mg PO TIDCM Patient Comments: CRUSH OR CHEW AND SWALLOW 3 TABLETS 3 TIMES A DAY WITH MEALS ascorbic acid (vitamin C) 500 mg tablet 500 mg PO DAILY doxycycline monohydrate 100 mg tablet 100 mg PO BID oxycodone 10 mg tablet 10 mg PO Q6H PRN (Reason: pain) (DME) BP monitor large cuff See Rx Instructions .Route .MEDSUPPLY Qty: 1 0RF Rx Instructions: As directed warfarin 4 mg tablet 4 mg PO .COMPLEX Qty: 100 3RF Protocol: Dose Management Condition: Friday Dose/Route: 4 mg Instruction: 1 x 4 mg tablet Condition: Friday Dose/Route: 4 mg Instruction: 1 x 4 mg tablet Condition: Friday Dose/Route: 4 mg Instruction: 1 x 4 mg tablet Condition: Friday Dose/Route: 4 mg Instruction: 1 x 4 mg tablet Condition: Dose/Route: 6 mg Instruction: 1.5 x 4 mg tablets Condition: Friday Dose/Route: 4 mg Instruction: 1 x 4 mg tablet Condition: Friday Dose/Route: 4 mg Instruction: 1 x 4 mg tablet Protocol Text: Adjustment Start Date: 06/23/25 INR Value: 2.2 INR Date: 06/21/25 Recheck Date: 06/30/25 Rx Instructions: 4 mg orally Daily except 6 mg (1 and a half tablets) on ; or as directedL:please give extra tablets for dose changes. Primary Care Provider: Yara Huntely Referrals: Yara Huntley MD [Primary Care Provider, Family Practice] - 3-5 Days Activity Restrictions/Additional Instructions: Return back to ED if symptoms change or worsen. Follow-up with your primary care physician. Make sure you receive your dialysis tomorrow. Print Language: Czech Disposition Disposition: Home, Self Care
[2025-07-03 19:00] VITALS: BP 112/46; PULSE 73; RESP 12; O2SAT 95
[2025-07-03 19:02] LABS: Hematocrit 29.6 % (40-54); Hemoglobin 9.3 g/dL (13.0-16.5); Immature Granulocytes Count 0.030 X10^3/uL (0.0-0.0); Mean Corp Hgb Conc 31.4 g/dL (32-36); Mean Corpuscular Volume 91.4 fL (80-94); Mean Platelet Vol. 9.8 fl (6.2-12.0); NRBC Flagged by Analyzer 0 % (0-5); Platelet Count 213 K/mm3 (150-450); RBC Distribution Width CV 19.0 % (11.6-14.6); RBC Distribution Width SD 62.3 fl (35.1-43.9); Red Blood Count 3.24 M/mm3 (4.6-6.2); White Blood Count 6.6 K/mm3 (4.4-11.0)
[2025-07-03 19:14] LABS: Prothrombin Time (Protime)PT. 20.0 SECONDS (11.7-14.9)
[2025-07-03 19:15] LABS: Partial Thromboplast Time 36.4 Seconds (24.1-36.2)
--- NOTE | 2025-07-03 19:15 | RAD_ITS ---
PROCEDURE: CHEST PA AND LATERAL 07/03/2025 REASON FOR EXAM: LIGHTHEADED TECHNIQUE: Procedure Code: RADCXR Modality: DX Procedure: CHEST PA AND LATERAL COMPARISON: 04/11/2025 FINDINGS: Mild cardiomegaly. Central venous line on the right with the tip in the SVC. Prior sternotomy. No consolidation. RAD/Chest PA and Lateral IMPRESSION: No acute airspace disease Reading Location: [facility]
[2025-07-03 19:55] LABS: AST(SGOT) 25 U/L (<=37); Alanine Aminotransfer ALT/SGPT 18 U/L (<=46); Albumin, Serum 4.1 g/dL (3.5-5.0); Alkaline Phosphatase 124 U/L (40-129); Anion Gap 21 (5-15); BUN 52 mg/dL (4-19); BUN/Creat Ratio 4.7 RATIO (10-20); Calcium,Total 10.2 mg/dL (7.6-11.0); Carbon Dioxide 23.3 mmol/L (21.0-32.0); Chloride 94 mmol/L (98-108); Globulin 4.5 g/dL (2.2-4.2); Glucose 82 mg/dL (70-99); Potassium 4.7 mmol/L (3.3-5.1)
--- NOTE | 2025-07-03 20:08 | ED.RN ---
Pt states he is unable to do orthostatic vital signs due to pain in his buttock area from sores. RN explained that this is the proper way to detect if pt is orthostatic, pt states he needs pain meds to complete task. Dr. Ayoub made aware, verbal for 1000 mg of tylenol.
[2025-07-03 21:01] VITALS: BP 119/80; PULSE 75
[2025-07-03 21:14] VITALS: BP 115/65; PULSE 74; RESP 20; TEMP 36.3; O2SAT 96
== END 2025-07-03 21:29 | disposition home or self-care (01) ==
PROVIDERS: Emergency Provider Surgery; PCP Pediatrics; Visit Provider Surgery
DX: R42 Dizziness and giddiness (principal); N18.6 End stage renal disease; I12.0 Hypertensive chronic kidney disease with stage 5 chronic kidney disease or end stage renal disease; I48.92 Unspecified atrial flutter; I48.0 Paroxysmal atrial fibrillation; E66.01 Morbid (severe) obesity due to excess calories; R53.83 Other fatigue; Z79.01 Long term (current) use of 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s; Z95.2 Presence of prosthetic heart valve; Z99.2 Dependence on renal dialysis; D63.1 Anemia in chronic kidney disease; I95.3 Hypotension of hemodialysis; I25.2 Old myocardial infarction; H34.12 Central retinal artery occlusion, left eye; N25.81 Secondary hyperparathyroidism of renal origin; I34.0 Nonrheumatic mitral (valve) insufficiency; I34.2 Nonrheumatic mitral (valve) stenosis; G47.33 Obstructive sleep apnea (adult) (pediatric); Z86.711 Personal history of pulmonary embolism; Z86.718 Personal history of other venous thrombosis and embolism; Z79.890 Hormone replacement therapy; Z79.82 Long term (current) use of aspirin; Z79.899 Other long term (current) drug therapy
CPT/HCPCS: 71046; 80053; 85025; 85610; 85730; 93005; 99285; A4216

== ENCOUNTER 2025-07-12 11:50 | Outpatient (RCR) | payer MEDICARE, SELFPAY ==
[2025-07-12 12:52] LABS: Prothrombin Time (Protime)PT. 25.1 SECONDS (11.7-14.9)
== END 2025-07-12 18:00 | disposition home or self-care (01) ==
LOC: LAB 11:50
PROVIDERS: PCP Pediatrics; Referring Provider Nurse Practitioner Gerontology; Visit Provider Internal Medicine Cardiovascular Disease
DX: Z79.01 Long term (current) use of 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s
CPT/HCPCS: 36415; 85610

== ENCOUNTER 2025-07-18 19:46 | Emergency (ER) | payer MEDICARE, SELFPAY ==
[2025-07-18 19:46] VITALS: BP 100/67; PULSE 100; RESP 16; TEMP 36.8; O2SAT 99
[2025-07-18 21:46] VITALS: BP 144/85; PULSE 89; RESP 18; O2SAT 100
[2025-07-18 22:19] VITALS: BMI 38.6
[2025-07-18 23:00] VITALS: PULSE 98; RESP 18; O2SAT 96
[2025-07-19 00:05] VITALS: BP 135/55; PULSE 93; RESP 18; TEMP 36.8; O2SAT 100
== END 2025-07-19 00:17 | disposition home or self-care (01) ==
PROVIDERS: Emergency Provider Emergency Medicine; PCP Pediatrics; Visit Provider Emergency Medicine
DX: T81.30XA Disruption of wound, unspecified, initial encounter (principal); I12.0 Hypertensive chronic kidney disease with stage 5 chronic kidney disease or end stage renal disease; N18.6 End stage renal disease; I48.0 Paroxysmal atrial fibrillation; Z99.2 Dependence on renal dialysis; I95.3 Hypotension of hemodialysis; I25.2 Old myocardial infarction; I34.0 Nonrheumatic mitral (valve) insufficiency; I34.2 Nonrheumatic mitral (valve) stenosis; D63.1 Anemia in chronic kidney disease; N25.81 Secondary hyperparathyroidism of renal origin; G47.33 Obstructive sleep apnea (adult) (pediatric); Z95.2 Presence of prosthetic heart valve; Z79.82 Long term (current) use of aspirin; Z79.01 Long term (current) use of 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s; Z86.711 Personal history of pulmonary embolism; Z86.718 Personal history of other venous thrombosis and embolism; Z79.890 Hormone replacement therapy; Z79.899 Other long term (current) drug therapy
CPT/HCPCS: 99282

== ENCOUNTER 2025-08-01 10:04 | Emergency (ER) | payer MEDICARE, SELFPAY ==
[2025-08-01 10:05] VITALS: BP 117/67; PULSE 87; RESP 16; TEMP 36.9; O2SAT 100; BMI 40.4
--- NOTE | 2025-08-01 10:38 | EX.ED.DYSGE1 ---
HPI History of Present Illness Chief Complaint: Wound Narrative Narrative: Patient is a 45-year-old male presenting to the emergency department for a bleeding wound. Patient has a past medical history of end-stage renal disease on dialysis, paroxysmal A-fib on Coumadin, chronic wounds. Patient has a chronic wound on his back. States that this frequently bleeds. He was here on 07/19/2025 for the same complaint. Patient states that he had his INR checked about a week ago and it was 1.2 so he was told to take multiple tablets of his warfarin which she did on Friday. States he did not take any of his warfarin yesterday due to the bleeding wound on his right sided chest wall at [facility]. States this stopped after pressure was applied and a dressing was applied at a hospital in [place]. States that today when he got to dialysis his wound on his right upper back started to bleed which is why he is here today. He denies any lightheadedness or dizziness. He did not receive dialysis today. 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) Anemia in chronic kidney disease Dyspnea Secondary renal hyperparathyroidism Abdominal wall cellulitis Thrombosis of kidney dialysis arteriovenous graft COVID-19 virus detected (10/02/21) Dental caries Dialysis AV fistula malfunction Postoperative complete heart block (08/21/21) Hypotension of hemodialysis Pain of right lower extremity Medication side effects Chronic ulcer of back Sepsis Daily 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 Mitral valve annular calcification Central retinal artery occlusion of left eye (10/09/20) History of non-ST elevation myocardial infarction (NSTEMI) (11/08/19) 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 History of bacterial endocarditis Mechanical complication of arteriovenous fistula surgically created Obstructive sleep apnea Non compliance w medication regimen Nonrheumatic mitral valve stenosis with insufficiency 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) Atrial flutter with rapid ventricular response (07/2020) Essential (primary) hypertension History of venous thromboembolism History of pulmonary embolus (PE) Bilateral carotid artery stenosis Paroxysmal atrial fibrillation (06/10/20) Unspecified symptoms and signs involving cognitive functions and awareness (04/05/20) 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) Expressive aphasia (04/05/20) ESRD on hemodialysis Dialysis patient Chronic kidney disease-mineral and bone disorder Chronic pelvic pain in male Pelvic mass Hematuria History of blood clots Hearing loss Hyperparathyroidism due to renal insufficiency Morbidly obese Home Medications ?Medication ?Instructions ?Recorded ?Last Taken ?Type sucroferric oxyhydroxide 500 mg 1,500 mg PO TIDCM phosphate binder 11/11/23 04/06/25 History chewable tablet (Velphoro) cinacalcet 60 mg tablet 90 mg PO DAILY hormones 07/30/24 03/02/25 History levothyroxine 25 mcg tablet 25 mcg PO DAILY disorder of 07/30/24 04/07/25 History thyroid gland vitamin B complex-vitamin C-folic 1 tab PO DAILY vitamin 07/30/24 04/07/25 History acid 0.8 mg tablet (Juju-Tashi) midodrine 10 mg tablet 10 mg PO TID blood pressure #90 03/01/25 02/28/25 Rx tabs warfarin 4 mg tablet 4 mg PO .COMPLEX #100 tabs 06/23/25 Unknown Rx ascorbic acid (vitamin C) 500 mg 500 mg PO DAILY 06/24/25 Unknown History tablet doxycycline monohydrate 100 mg 100 mg PO BID 06/24/25 Unknown History tablet oxycodone 10 mg tablet 10 mg PO Q6H PRN pain 06/24/25 Unknown History aspirin 81 mg tablet,delayed 81 mg PO DAILY heart health #30 06/28/25 Unknown Rx release (Adult Aspirin Regimen) tabs metoprolol succinate 25 mg 25 mg PO QDAY #30 tabs 06/28/25 Unknown Rx tablet,extended release 24 hr BP monitor #1 ea 07/05/25 Unknown Rx blood pressure test kit-large #1 ea 07/05/25 Unknown Rx Allergy/AdvReac Type Severity Reaction Status Date / Time trazodone Allergy Severe Jittery/Sha Verified 07/18/25 19:47 ky gabapentin Allergy Other Verified 07/18/25 19:47 Family History Other Adopted Surgical History History of mitral valve replacement with bioprosthetic valve (08/21/21) Hx of mitral valve replacement with mechanical valve S/P PICC central line placement (06/15/24) History of angioplasty of peripheral vessel (08/28/21) History of tooth extraction, class IV edentulism (09/11/21) History of right and left heart catheterization (08/16/21) Mechanical complication of dialysis catheter History of herniorrhaphy Status post creation of arteriovenous fistula History of cardioversion (12/02/18) History of repair of congenital cleft palate History of left heart catheterization (09/17/18) history of cather replacement Social History household members: none Smoking Status: Never smoker alcohol intake: never substance use type: marijuana what type of physical activity do you participate in: none ROS ROS ED ROS Narrative See HPI EXAM Physical Exam Narrative Exam Narrative: Vital signs: Reviewed General: Alert and oriented x 3. No acute distress. Chronically unwell appearing. HEENT: Head is normocephalic and atraumatic, sinuses nontender, pupils equal round and reactive. Nares are patent. Oropharynx and throat exams normal. Neck: Supple without lymphadenopathy nontender Cardiovascular: Regular rate and rhythm, no murmurs. No rubs or gallops. Normal S1 and S2 Respiratory: Clear to auscultation bilaterally. No wheezes, rales, rhonchi Abdominal: Soft and nontender. Normal bowel sounds. No guarding or rebound. Nonsurgical abdomen Extremities: On the patient's upper thoracic right-sided back there is a 3 cm chronic wound with granulation tissue. There is dried blood in the wound and around the wound. There is no active bleeding. There is no surrounding erythema, warmth, fluctuance or discharge. No findings consistent with cellulitis or an abscess. Skin: No rash or redness. Neurological: Cranial nerves II through XII are grossly intact. Normal strength and sensation. Normal cerebellar function The rest of the physical exam is unremarkable Const Vital Signs: 08/01/25 10:05 Temperature 98.4 F Temperature Source Oral Pulse Rate 87 Respiratory Rate 16 Blood Pressure 117/67 Blood Pressure Mean 83 Pulse Ox 100 Oxygen Delivery Method Room Air MDM MDM MDM Narrative Medical decision making narrative: Patient is a 45-year-old male presenting to the emergency department for a bleeding wound on his right upper back. Patient was seen and examined. Vitals are stable. Patient resting in bed comfortably no acute distress. Given the patient took multiple doses of warfarin on Friday will check an INR. Bleeding has stopped when it was examined by myself. Will place Surgicel and a abdominal pad dressing to help prevent any further rebleeding. There is no signs of cellulitis or abscess around the wound. Patient states he has as needed oxycodone at home for pain control and asked for a dose here. This was given. I do not think it is necessary to obtain a CBC to assess his hemoglobin, he has no symptoms related to anemia and did not have significant bleeding from the wound based on my exam. INR of 1.4. I recommended that the patient speak with his sports journalist to determine a plan for it to be therapeutic. I explained that the goal is 2.5-3.5 based on cardiology notes. However with his frequently bleeding wounds this will increase the risk of them further bleeding in the future however the benefits of having a therapeutic INR outweigh the risks of bleeding wounds. I discussed this with the patient. Patient discharged from the Emergency Department. I do not feel that the patient's evaluation reveals any acute reason for admission at this time. I instructed them to either follow-up with their primary care physician or promptly return to the Emergency Department for reevaluation should symptoms worsen or new symptoms develop. I explained what symptoms would indicate the need to return to the emergency department. Shared decision making was used. The patient voiced understanding of the treatment plan and is agreeable with it. Clinical impression Subtherapeutic INR Bleeding from wound History & Record Review Discussion w/independent historian: Patient Additional record(s) reviewed:: Prior ED visit and Prior labs Lab Data Attestation: I reviewed the patient's lab results. Labs: Laboratory Results - last 24 hr 08/01/25 11:07 PT 17.8 H INR 1.4 Discharge Plan Triage Chief Complaint: Wound ED Provider: Mireya Lee Dx/Rx/DC Orders Clinical Impression: Bleeding from wound, Subtherapeutic international normalized ratio (INR) Instructions: Wound Care Prescriptions: No Action levothyroxine 25 mcg tablet 25 mcg PO DAILY cinacalcet 60 mg tablet 90 mg PO DAILY Juju-Tashi 0.8 mg tablet 1 tab PO DAILY midodrine 10 mg tablet 10 mg PO TID Qty: 90 3RF metoprolol succinate 25 mg tablet extended release 24 hr 25 mg PO QDAY Qty: 30 11RF aspirin [Adult Aspirin Regimen] 81 mg tablet,delayed release (DR/EC) 81 mg PO DAILY Qty: 30 11RF (DME) blood pressure test kit-large Kit See Rx Instructions .Route Qty: 1 0RF Rx Instructions: As directed Velphoro 500 mg tablet,chewable 1,500 mg PO TIDCM Patient Comments: CRUSH OR CHEW AND SWALLOW 3 TABLETS 3 TIMES A DAY WITH MEALS ascorbic acid (vitamin C) 500 mg tablet 500 mg PO DAILY doxycycline monohydrate 100 mg tablet 100 mg PO BID oxycodone 10 mg tablet 10 mg PO Q6H PRN (Reason: pain) warfarin 4 mg tablet 4 mg PO .COMPLEX Qty: 100 3RF Protocol: Dose Management Condition: Friday Dose/Route: 4 mg Instruction: 1 x 4 mg tablet Condition: Friday Dose/Route: 4 mg Instruction: 1 x 4 mg tablet Condition: Friday Dose/Route: 6 mg Instruction: 1.5 x 4 mg tablets Condition: Friday Dose/Route: 4 mg Instruction: 1 x 4 mg tablet Condition: Dose/Route: 6 mg Instruction: 1.5 x 4 mg tablets Condition: Friday Dose/Route: 4 mg Instruction: 1 x 4 mg tablet Condition: Friday Dose/Route: 4 mg Instruction: 1 x 4 mg tablet Protocol Text: Adjustment Start Date: Friday07/12/25 INR Value: 2.2 INR Date: 07/12/25 Recheck Date: 07/26/25 Rx Instructions: 4 mg orally Daily except 6 mg (1 and a half tablets) on ; or as directedL:please give extra tablets for dose changes. (DME) BP monitor large cuff See Rx Instructions .Route .MEDSUPPLY Qty: 1 0RF Rx Instructions: As directed Primary Care Provider: Yara Huntley Referrals: Yara Huntley MD [Primary Care Provider, Family Practice] - As soon as possible Activity Restrictions/Additional Instructions: Follow-up with your sports journalist to talk about your INR. Watch the wounds for any signs of infection. They do not look infected at this time. Your evaluation in the Emergency Department did not reveal any acute reason for admission. However, I want to emphasize that you may be early in the course of a disease process or illness even if it is not present. For this reason you should follow-up within 24 hours for reevaluation with either your primary care physician or if necessary back here in the Emergency Department. You should return to the Emergency Department immediately if your symptoms worsen or new symptoms develop. Print Language: Indonesian Disposition Disposition: Home, Self Care Discharge Date/Time: 08/01/25 13:42
[2025-08-01 11:25] LABS: Prothrombin Time (Protime)PT. 17.8 SECONDS (11.7-14.9)
== END 2025-08-01 13:42 | disposition home or self-care (01) ==
PROVIDERS: Emergency Provider Student in an Organized Health Care Education/Training Program; PCP Pediatrics; Visit Provider Student in an Organized Health Care Education/Training Program
DX: S21.201A Unspecified open wound of right back wall of thorax without penetration into thoracic cavity, initial encounter (principal); I12.0 Hypertensive chronic kidney disease with stage 5 chronic kidney disease or end stage renal disease; N18.6 End stage renal disease; I48.0 Paroxysmal atrial fibrillation; R79.1 Abnormal coagulation profile; X58.XXXA Exposure to other specified factors, initial encounter; Z79.82 Long term (current) use of aspirin; Z79.01 Long term (current) use of 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s; Z79.890 Hormone replacement therapy; Z79.899 Other long term (current) drug therapy; Z86.718 Personal history of other venous thrombosis and embolism; Z86.711 Personal history of pulmonary embolism; Z99.2 Dependence on renal dialysis
CPT/HCPCS: 85610; 99285; A4216

== ENCOUNTER 2025-08-04 15:36 | Outpatient (RCR) | payer MEDICARE, SELFPAY ==
[2025-08-04 17:02] LABS: Prothrombin Time (Protime)PT. 17.8 SECONDS (11.7-14.9)
== END 2025-08-27 18:00 | disposition home or self-care (01) ==
LOC: LAB 15:36
PROVIDERS: PCP Pediatrics; Referring Provider Nurse Practitioner Gerontology; Visit Provider Internal Medicine Cardiovascular Disease
DX: Z79.01 Long term (current) use of 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s (principal)
CPT/HCPCS: 36415; 85610